=== PATIENT | male | born 1975 | race Caucasian/White ===

== ENCOUNTER 2018-09-23 13:20 | Outpatient (REF) | payer MEDICAID, SELFPAY ==
[2018-09-23 14:42] LABS: ALT 38 U/L (12-78); AST 22 U/L (15-37); Albumin 4.1 g/dL (3.4-5.0); Alkaline Phosphatase 153 U/L (46-116); Anion Gap 14.4 mmol/L (3-11); BUN 11 mg/dL (7-18); Bilirubin, Total 0.4 mg/dL (0.2-1.0); CO2 22.6 mmol/L (21.0-32.0); CREATININE 0.79 mg/dL (0.70-1.30); Calcium 9.6 mg/dL (8.5-10.1); Chloride 101 mmol/L (98-107); Cholesterol 203 mg/dL (50-200); Glucose 162 mg/dL (70-100); HDL Cholesterol 35 mg/dL (40-60); LDL CHOLESTEROL 131 mg/dL (<100); Potassium 4.2 mmol/L (3.5-5.1); Sodium 138 mmol/L (136-145); Total Protein 7.8 g/dL (6.4-8.2); Triglyceride 241 mg/dL (30-150)
[2018-09-23 15:13] LABS: COMMENT (LAB VIEW ONLY) 69.93 mg/dL; Microalb ug/mg Crea 42.8 ug/mg Cr
== END 2018-09-23 13:40 ==
LOC: NCHCN 13:20
PROVIDERS: PCP Family Medicine; Visit Provider Family Medicine
DX: I10 Essential (primary) hypertension (principal); R74.8 Abnormal levels of other serum enzymes; I25.10 Atherosclerotic heart disease of native coronary artery without angina pectoris; E11.8 Type 2 diabetes mellitus with unspecified complications
CPT/HCPCS: 80053; 80061; 82306; 83721; 82043; 82570

== ENCOUNTER 2018-12-28 23:32 | Emergency (ER) | payer MEDICAID, SELFPAY ==
[2018-12-28 23:43] VITALS: BP 152/94; PULSE 103; RESP 18; TEMP 36.4; O2SAT 96
--- NOTE | 2018-12-28 23:58 | ED.GENADUL_ITS ---
Discharge Plan Disposition Patient Disposition: HOME Condition: Stable Discharge Details Chief Complaint: Orthopedic Clinical Impression: Epicondylitis, lateral, right Primary Care Provider: Guanako Perez ED Provider: Arthur Marcelo Home Meds and New Rx's Prescriptions: Continued metformin 500 MG tablet 1,000 mg PO BID Qty: 90 RF: 0 venlafaxine 150 MG capsule,extended release 24hr 225 mg PO DAILY RF: 0 omeprazole 40 MG capsule,delayed release(DR/EC) 40 mg PO DAILY RF: 0 protriptyline 10 MG tablet 10 mg PO TID RF: 0 methylphenidate HCl [Ritalin] 20 MG tablet 20 mg PO TID RF: 0 lisdexamfetamine [Vyvanse] 50 MG capsule 50 mg PO DAILY RF: 0 lisinopril 20 MG tablet 1 tab PO QAM RF: 0 aspirin 325 MG tablet 325 mg PO DAILY RF: 0 amlodipine 5 MG tablet 5 mg PO DAILY RF: 0 modafinil 200 MG tablet 200 mg PO BID RF: 0 empagliflozin [Jardiance] 25 MG tablet 25 mg PO DAILY RF: 0 atorvastatin 80 MG tablet 80 mg PO DAILY RF: 0 lisdexamfetamine [Vyvanse] 50 MG capsule 50 mg PO DAILY RF: 0 exenatide microspheres [Bydureon] 2 MG suspension,extended rel recon 2 mg Sub-Q DIRECTED RF: 0 insulin glargine [Lantus Solostar U-100 Insulin] 100 UNIT/ML insulin pen 45 units Sub-Q HS RF: 0 Discharge Instructions Instructions: Tennis Elbow (ED) Additional Instructions: Please use given brace as needed for discomfort you may also take 600 mg of ibuprofen as needed for pain. Please reduce repetitive motion activities of right upper extremity and if not improving over the next couple weeks follow-up with your primary care provider for reassessment. Feel free to return the emergency department for any new or significant worsening of symptoms or further concerns he may have Referrals: Guanako Perez [Primary Care Provider] - (As needed for reassessment) Discharge Data Discharge Date/Time-TO BE ENTERED AT DEPARTURE: 12/29/18 00:05 Medical Decision Making Patient presenting the emergency department for chief complaint of right elbow pain. Patient denies any known injury or trauma. Patient states with internal rotation and flexion of the forearm he gets lateral elbow pain. Physical exam is unremarkable with full range of motion, no bony prominence tenderness, at this time minimally reproducible symptoms. Neuro, vascular, and motor examination distal the imminent injury are unremarkable. Concern for lateral epicondylitis. Patient given counterforce brace to use as needed for discomfort and instructed to use 600 mg of Motrin as needed for pain. HPI General Mode of arrival: ambulatory . Date/Time Provider Initiated Documentation: 12/28/18 23:48 . Limitations to Documentation: no limitations . Information obtained by: patient and RN notes reviewed . History of Present Illness 43 year old M presents to the emergency department with the chief complaint of Right elbow pain, Quality is described as other (Denies pain), and is localized to the right and upper extremity. and it has been intermittent. Movement worsens symptoms . Patient notes no other symptoms.. Patient did receive the following treatments prior to arrival, none Related Data Home Medications Medication Instructions Recorded Confirmed metformin 1,000 mg PO BID #90 08/20/13 08/12/17 omeprazole 40 mg PO DAILY 10/05/13 08/12/17 protriptyline 10 mg PO TID 10/05/13 08/12/17 venlafaxine 225 mg PO DAILY 10/05/13 08/12/17 lisdexamfetamine [Vyvanse] 50 mg PO DAILY 03/09/14 08/12/17 methylphenidate HCl [Ritalin] 20 mg PO TID 03/09/14 08/12/17 lisinopril 1 tab PO QAM 12/29/14 08/12/17 insulin glargine [Lantus Solostar 45 units SUB-Q HS 09/18/16 08/12/17 U-100 Insulin] amlodipine 5 mg PO DAILY 08/12/17 08/12/17 aspirin 325 mg PO DAILY 08/12/17 08/12/17 atorvastatin 80 mg PO DAILY 08/12/17 08/12/17 empagliflozin [Jardiance] 25 mg PO DAILY 08/12/17 08/12/17 exenatide microspheres [Bydureon] 2 mg SUB-Q DIRECTED 08/12/17 08/12/17 lisdexamfetamine [Vyvanse] 50 mg PO DAILY 08/12/17 08/12/17 modafinil 200 mg PO BID 08/12/17 08/12/17 Previous Rx's Medication Instructions Recorded metformin 1,000 mg PO BID #90 08/20/13 Allergies Allergy/AdvReac Type Severity Reaction Status Date / Time No Known Allergies Allergy Unverified 08/12/17 21:46 General Stated Complaint: Orthopedic STEVO: 4 Review of Systems Constitutional Denies chills and Denies fever(s) Cardiovascular Denies syncope Musculoskeletal Reports as per HPI, Reports numbness and Reports tingling Integumentary/Breasts Denies rash, Denies sores and Denies wounds Neurologic Denies syncope, Reports numbness and Reports tingling PFSH Social History Smoking and Tabacco status: Current every day Exam Const General: cooperative and no acute distress Orientation: alert, awake and oriented x3 Resp Effort & Inspection: normal respiratory effort and able to speak in complete sentences Cardio Rate: regular rate Rhythm: regular rhythm Extrem General: normal exam except as noted Left upper extremity: full ROM, shoulder/upper arm Details: inspection abnormal, elbow/forearm Details: tenderness Location: of the lateral epicondyle and abnormal ROM Details: pain with active ROM Details: with supination; no swelling, wrist Details: normal to inspection and hand Details: normal to inspection Course Vital Signs Temperature 36.4 C L 12/28/18 23:43 Pulse 103 H 12/28/18 23:43 Respiratory Rate 18 12/28/18 23:43 Blood Pressure 152/94 H 12/28/18 23:43 Pulse Oximetry 96 12/28/18 23:43 Temperature 36.4 C L 12/28/18 23:43 Temperature Source Temporal Artery Scan 12/28/18 23:43 Pulse 103 H 12/28/18 23:43 Respiratory Rate 18 12/28/18 23:43 Respiratory Effort Non-Labored 12/28/18 23:45 Blood Pressure 152/94 H 12/28/18 23:43 Blood Pressure Position Sitting 12/28/18 23:43 Pulse Oximetry 96 12/28/18 23:43 Oxygen Delivery Method Room Air 12/28/18 23:43 Oxygen Flow Rate 0 12/28/18 23:43 Pain Level 0 12/28/18 23:43
== END 2018-12-29 00:05 | disposition home or self-care (01) ==
PROVIDERS: Emergency Provider Nurse Practitioner Family; PCP Family Medicine
DX: M77.11 Lateral epicondylitis, right elbow (principal)
CPT/HCPCS: 29105; 99283; 99282

== ENCOUNTER 2019-11-13 12:57 | Outpatient (REF) | payer MEDICARE, SELFPAY ==
[2019-11-13 14:08] LABS: ALT 26 U/L (16-63); AST 12 U/L (15-37); Alkaline Phosphatase 140 U/L (46-116); Anion Gap 12.4 mmol/L (3-11); BUN 12 mg/dL (7-18); Bilirubin, Total 0.3 mg/dL (0.2-1.0); CO2 25.6 mmol/L (21.0-32.0); CREATININE 0.81 mg/dL (0.70-1.30); Calcium 9.5 mg/dL (8.5-10.1); Chloride 100 mmol/L (98-107); Glucose 186 mg/dL (74-106); Potassium 4.6 mmol/L (3.5-5.1); Sodium 138 mmol/L (136-145); Total Protein 7.8 g/dL (6.4-8.2)
== END 2019-11-13 13:17 ==
LOC: NCHCN 12:57
PROVIDERS: PCP Family Medicine; Visit Provider Family Medicine
DX: E11.8 Type 2 diabetes mellitus with unspecified complications (principal); I10 Essential (primary) hypertension; R74.8 Abnormal levels of other serum enzymes
CPT/HCPCS: 80053

== ENCOUNTER 2019-11-24 16:09 | Outpatient (REF) | payer MEDICARE, SELFPAY ==
[2019-11-24 17:05] LABS: *AMPHETAMINES SCREEN URINE Negative (Negative); *BARBITURATES SCREEN URINE Negative (Negative); *BENZODIAZEPINES SCREEN URINE Negative (Negative); Cannabinoids THC POSITIVE (Negative); Cocaine Screen,Urine Negative (Negative); METHADONE URINE SCREEN Negative (Negative); OPIATES URINE SCREEN Negative (Negative)
[2019-11-24 17:06] LABS: Tricyclic Antidepressants POSITIVE (Negative)
== END 2019-11-24 16:29 ==
LOC: LBN 16:09
PROVIDERS: PCP Family Medicine; Visit Provider Internal Medicine
DX: G47.411 Narcolepsy with cataplexy (principal); Z79.899 Other long term (current) drug therapy; R78.5 Finding of other psychotropic drug in blood
CPT/HCPCS: 80307

== ENCOUNTER 2020-07-16 15:58 | Outpatient (REF) | payer MEDICARE, SELFPAY ==
[2020-07-16 14:07] LABS: *AMPHETAMINES SCREEN URINE Negative (Negative); *BARBITURATES SCREEN URINE Negative (Negative); *BENZODIAZEPINES SCREEN URINE Negative (Negative); Cannabinoids THC Negative (Negative); Cocaine Screen,Urine Negative (Negative); METHADONE URINE SCREEN Negative (Negative); OPIATES URINE SCREEN Negative (Negative)
[2020-07-16 14:10] LABS: Tricyclic Antidepressants Negative (Negative)
[2020-07-20 13:41] LABS: Methylphenidate 439 ng/mL; Ritalinic Acid 7229 ng/mL
== END 2020-07-16 16:18 ==
LOC: LBN 15:58
PROVIDERS: PCP Family Medicine; Visit Provider Internal Medicine
DX: G47.411 Narcolepsy with cataplexy (principal); Z79.899 Other long term (current) drug therapy
CPT/HCPCS: 80307; 80360

== ENCOUNTER 2020-09-19 16:12 | Outpatient (REF) | payer MEDICARE, MEDICAID, SELFPAY ==
[2020-09-19 18:45] LABS: ALT 28 U/L (16-63); AST 16 U/L (15-37); Albumin 4.1 g/dL (3.4-5.0); Alkaline Phosphatase 153 U/L (46-116); Anion Gap 11.5 mmol/L (3-11); BUN 13 mg/dL (7-18); Bilirubin, Total 0.2 mg/dL (0.2-1.0); CO2 25.5 mmol/L (21.0-32.0); CREATININE 1.01 mg/dL (0.70-1.30); Calcium 9.7 mg/dL (8.5-10.1); Chloride 102 mmol/L (98-107); Glucose 173 mg/dL (74-106); Sodium 139 mmol/L (136-145); Total Protein 7.7 g/dL (6.4-8.2)
[2020-09-19 19:31] LABS: Vitamin D 25 Total 9.9 ng/ml (30-100)
[2020-09-21 13:47] LABS: Syphilis Total Ab w/Reflex Nonreactive (Nonreactive)
[2020-09-23 16:52] LABS: HIV-1/2 Ag & Ab Screen Negative (Negative)
== END 2020-09-19 16:32 ==
LOC: NCHCN 16:12
PROVIDERS: PCP Family Medicine; Visit Provider Family Medicine
DX: R74.8 Abnormal levels of other serum enzymes (principal); E11.8 Type 2 diabetes mellitus with unspecified complications; Z11.4 Encounter for screening for human immunodeficiency virus [HIV]; Z13.9 Encounter for screening, unspecified
CPT/HCPCS: 80053; 82306; 87389; 86780

== ENCOUNTER → 2020-12-24 09:03 | Outpatient (BNVA) | payer OTHER, MEDICAID, SELFPAY | PROVIDERS: PCP Family Medicine; Referring Provider Family Medicine; Visit Provider Nurse Practitioner Gerontology | DX: N52.9 Male erectile dysfunction, unspecified (principal) | CPT/HCPCS: 99215 ==

== ENCOUNTER 2021-01-16 19:12 | Outpatient (REF) | payer OTHER, MEDICAID, SELFPAY ==
[2021-01-16 20:17] LABS: *AMPHETAMINES SCREEN URINE Negative (Negative); *BARBITURATES SCREEN URINE Negative (Negative); *BENZODIAZEPINES SCREEN URINE Negative (Negative); Cannabinoids THC POSITIVE (Negative); Cocaine Screen,Urine Negative (Negative); METHADONE URINE SCREEN Negative (Negative); OPIATES URINE SCREEN Negative (Negative)
[2021-01-16 20:31] LABS: Tricyclic Antidepressants POSITIVE (Negative)
== END 2021-01-16 19:13 | disposition home or self-care (01) ==
LOC: LBN 19:12
PROVIDERS: PCP Family Medicine; Visit Provider Internal Medicine
DX: G47.411 Narcolepsy with cataplexy (principal); Z79.899 Other long term (current) drug therapy
CPT/HCPCS: 80307

== ENCOUNTER 2021-05-16 00:23 | Emergency (ER) | payer OTHER, MEDICAID, SELFPAY ==
--- NOTE | 2021-05-16 00:24 | ED.GENADUL_ITS ---
Discharge Plan Disposition Patient Disposition: HOME Condition: Good Discharge Details Clinical Impression: Acute maxillary sinusitis Primary Care Provider: Guanako Perez ED Provider: Isacc Enriquez [place] Meds and New Rx's Prescriptions: New amoxicillin-pot clavulanate [Augmentin] 875-125 mg tablet 1 tab PO BID Qty: 14 RF: 0 Continued ropinirole 0.25 mg tablet 0.5 mg PO QHS RF: 0 cholecalciferol (vitamin D3) 1,250 mcg (50,000 unit) capsule 1,250 mcg PO QWEEK RF: 0 Sunosi 150 mg tablet 150 mg PO DAILY RF: 0 Trulicity 1.5 mg/0.5 mL pen injector 1.5 mg subcut QWEEK RF: 0 omeprazole 40 mg capsule,delayed release(DR/EC) 40 mg PO DAILY RF: 0 Lantus Solostar U-100 Insulin 100 unit/mL (3 mL) insulin pen 55 unit Sub-Q HS RF: 0 lisinopril 40 mg tablet 40 mg PO DAILY RF: 0 protriptyline 10 mg tablet 10 mg PO TID RF: 0 metformin 500 MG tablet 1,000 mg PO BID Qty: 90 RF: 0 venlafaxine 150 MG capsule,extended release 24hr 225 mg PO DAILY RF: 0 omeprazole 40 MG capsule,delayed release(DR/EC) 40 mg PO DAILY RF: 0 methylphenidate HCl [Ritalin] 20 MG tablet 20 mg PO TID RF: 0 amlodipine 5 MG tablet 5 mg PO DAILY RF: 0 modafinil 200 MG tablet 200 mg PO BID RF: 0 Jardiance 25 MG tablet 25 mg PO DAILY RF: 0 atorvastatin 80 MG tablet 80 mg PO DAILY RF: 0 Discharge Instructions Instructions: Amoxicillin/Clavulanate Potassium (By mouth), Sinusitis (ED) Additional Instructions: We will treat as bacterial sinusitis given the amount of tenderness over the left maxillary sinus. Take all of your antibiotic. Use acetaminophen or ibuprofen for pain. Follow-up with primary care next week for reevaluation. Return to ED for worsening pain/swelling, difficulty breathing, worsening headache, other concerns. Referrals: Guanako Perez [Primary Care Provider] - Medical Decision Making Given the tenderness over the left maxillary sinus, left facial swelling, complaint of thick nasal discharge presume bacterial sinusitis. Patient appears nontoxic and well. He denies allergies. Will start on Augmentin and have him follow-up with primary care next week for reevaluation. Return to ED for worsening pain/swelling, worsening headache, difficulty breathing, other concerns. HPI General Mode of arrival: ambulatory . Date/Time Provider Initiated Documentation: 05/16/21 00:23 . Limitations to Documentation: no limitations . Information obtained by: patient and RN notes reviewed . HPI Narrative: Patient presents to the ED with left facial swelling that he has noticed today. It has steadily gotten worse. He has had a couple of days of sinus congestion and discomfort. He has thick green discharge when he blows his nose. He denies fever, headache. Does have a slight cough but has no chest pain or shortness of breath. He is edentulous. He does not really complain of facial pain but is noticed swelling getting worse and came in tonight for evaluation. Related Data Home Medications Medication Instructions Recorded Confirmed metformin 1,000 mg PO BID #90 08/20/13 05/16/21 omeprazole 40 mg PO DAILY 10/05/13 05/16/21 venlafaxine 225 mg PO DAILY 10/05/13 05/16/21 methylphenidate HCl [Ritalin] 20 mg PO TID 03/09/14 05/16/21 Jardiance 25 mg PO DAILY 08/12/17 05/16/21 amlodipine 5 mg PO DAILY 08/12/17 05/16/21 atorvastatin 80 mg PO DAILY 08/12/17 05/16/21 modafinil 200 mg PO BID 08/12/17 05/16/21 cholecalciferol (vitamin D3) 1,250 1,250 mcg PO QWEEK 11/20/20 12/24/20 mcg (50,000 unit) capsule dulaglutide 1.5 mg/0.5 mL 1.5 mg SUBCUT QWEEK 11/20/20 05/16/21 subcutaneous pen injector insulin glargine 100 unit/mL (3 55 unit SUB-Q HS ml 11/20/20 05/16/21 mL) subcutaneous pen lisinopril 40 mg tablet 40 mg PO DAILY 11/20/20 05/16/21 omeprazole 40 mg capsule,delayed 40 mg PO DAILY 11/20/20 05/16/21 release protriptyline 10 mg tablet 10 mg PO TID 11/20/20 05/16/21 ropinirole 0.25 mg tablet 0.5 mg PO QHS tab 11/20/20 05/16/21 solriamfetol 150 mg tablet 150 mg PO DAILY 11/20/20 05/16/21 amoxicillin-pot clavulanate 1 tab PO BID #14 tab 05/16/21 [Augmentin] Previous Rx's Medication Instructions Recorded metformin 1,000 mg PO BID #90 08/20/13 amoxicillin-pot clavulanate 1 tab PO BID #14 tab 05/16/21 [Augmentin] Allergies Allergy/AdvReac Type Severity Reaction Status Date / Time No Known Allergies Allergy Unverified 08/12/17 21:46 General STEVO: 4 Review of Systems Narrative: As documented in HPI otherwise negative as below. Const: no fever, chills, weakness Resp: no SOB, pleuritic pain CV: no CP, diaphoresis, edema, syncope GI: no abdominal pain, nausea, vomiting, diarrhea Neuro: no headache, numbness, focal weakness, confusion PFSH Medical History Benign hypertension Cataplexy and narcolepsy Followed by bar machine operator, Dr. Hoang. Coronary arteriosclerosis Diabetes mellitus type 2 Diabetic peripheral neuropathy Eczema Hyperlipidemia Metabolic syndrome Microalbuminuria Restless legs Vitamin D deficiency Surgical History History of heart artery stent S/P CABG (coronary artery bypass graft) S/P exploratory laparotomy Social History Smoking/Tobacco Use Status: Current every day Smoking risk assessment performed?: Yes Alcohol Intake: never Drug use: Never Do you feel safe at home: Yes Do you feel safe in your relationship?: Yes Exam Narrative Exam Narrative: Const: WDWN male in NAD. HEENT: NC/AT. Left facial swelling noticed. No erythema. No parotid swelling or tenderness. Significant left maxillary tenderness. TMs clear. OP clear and no swelling. No parotid duct pus expressed. Eyes: Normal conjunctiva and sclera. Neck: Supple. Trachea midline. Lungs: Normal respiratory effort. Lungs are clear. Cor: RRR without murmur/gallop Neuro: A+O x 3. Normal speech, mentation, gait. Cranial nerves II - XII grossly intact. No gross motor or sensory deficit. Skin: Warm and dry without rash.
[2021-05-16 00:25] VITALS: BP 177/105; PULSE 99; RESP 18; TEMP 36.3; O2SAT 99
[2021-05-16] MEDS: Amoxicillin 875/Clav. 125 TAB PO (00:46)
== END 2021-05-16 00:45 | disposition home or self-care (01) ==
LOC: ER 00:48
PROVIDERS: Emergency Provider Emergency Medicine; PCP Family Medicine
DX: R22.0 Localized swelling, mass and lump, head (principal); J01.00 Acute maxillary sinusitis, unspecified; F17.210 Nicotine dependence, cigarettes, uncomplicated
CPT/HCPCS: 99283

== ENCOUNTER 2021-09-10 12:13 | Emergency (ER) | payer MEDICARE, MEDICAID, SELFPAY ==
[2021-09-10 12:26] VITALS: BP 124/84; PULSE 108; RESP 16; TEMP 36.8; O2SAT 97
--- NOTE | 2021-09-10 12:42 | ED.GENADUL_ITS ---
Discharge Plan Disposition Patient Disposition: HOME Condition: Stable Discharge Details Clinical Impression: Cellulitis of index finger Primary Care Provider: Guanako Perez ED Provider: Padma Gallagher Home Meds and New Rx's Prescriptions: New cephalexin 500 mg capsule 500 mg PO QID 7 Days Qty: 28 RF: 0 Continued ropinirole 0.25 mg tablet 0.5 mg PO QHS RF: 0 cholecalciferol (vitamin D3) 1,250 mcg (50,000 unit) capsule 1,250 mcg PO QWEEK RF: 0 Sunosi 150 mg tablet 150 mg PO DAILY RF: 0 Trulicity 1.5 mg/0.5 mL pen injector 1.5 mg subcut QWEEK RF: 0 omeprazole 40 mg capsule,delayed release(DR/EC) 40 mg PO DAILY RF: 0 Lantus Solostar U-100 Insulin 100 unit/mL (3 mL) insulin pen 55 unit Sub-Q HS RF: 0 lisinopril 40 mg tablet 40 mg PO DAILY RF: 0 protriptyline 10 mg tablet 10 mg PO TID RF: 0 metformin 500 MG tablet 1,000 mg PO BID Qty: 90 RF: 0 venlafaxine 150 MG capsule,extended release 24hr 225 mg PO DAILY RF: 0 omeprazole 40 MG capsule,delayed release(DR/EC) 40 mg PO DAILY RF: 0 methylphenidate HCl [Ritalin] 20 MG tablet 20 mg PO TID RF: 0 amlodipine 5 MG tablet 5 mg PO DAILY RF: 0 modafinil 200 MG tablet 200 mg PO BID RF: 0 Jardiance 25 MG tablet 25 mg PO DAILY RF: 0 atorvastatin 80 MG tablet 80 mg PO DAILY RF: 0 Discharge Instructions Instructions: Paronychia (ED), Cellulitis (ED) Additional Instructions: It is suspected that you are developing a skin infection called cellulitis on your finger. A prescription for antibiotics has been sent electronically to your pharmacy. Take this as directed until finished. Be sure to watch your sugar closely as infections may affect your blood sugar. Follow-up with your primary care doctor within the next week. Return to the emergency department with any worsening or new concerning symptoms such as fever, worsening pain, redness or swelling. Discharge Data Discharge Physician: Padma Gallagher Medical Decision Making 46-year-old male with a history of hypertension, hyperlipidemia, coronary artery disease, anxiety, depression and diabetes presents for right index finger swelling, pain and redness for the past few days. No injury but does admit to pus drainage when squeezing the area. Patient appears comfortable and nontoxic. There is an area of cellulitis on the dorsal distal aspect right above the cuticle of the right second finger. There is no obvious abscess noted. A digital block was performed and an 11 blade was used to incise the area just below the cuticle but no pus drainage expressed. His finger was soaked in normal saline and dressed with antibiotic ointment and tube gauze dressing. He was given a dose of Keflex here and a prescription sent electronically to his pharmacy. Advised to follow up with the primary care doctor for re-evaluation. Usual and customary return precautions given prior to discharge. Medical Records Medical records reviewed: Yes I reviewed the patient's medical records. HPI General Mode of arrival: ambulatory . Date/Time Provider Initiated Documentation: 09/10/21 12:31 . Limitations to Documentation: no limitations . Information obtained by: patient . HPI Narrative: Patient is a 46-year-old male with a history of hypertension, hyperlipidemia, anxiety, depression, coronary artery disease, diabetes who presents for right index finger pain, redness and swelling for the past few days. Patient denies any known injury. He states he does occasionally bite and pick at this area. He states he has noted some pus drainage breast when pushing on the area. He denies any known fever. Related Data Home Medications Medication Instructions Recorded Confirmed metformin 1,000 mg PO BID #90 08/20/13 09/10/21 omeprazole 40 mg PO DAILY 10/05/13 09/10/21 venlafaxine 225 mg PO DAILY 10/05/13 09/10/21 methylphenidate HCl [Ritalin] 20 mg PO TID 03/09/14 09/10/21 Jardiance 25 mg PO DAILY 08/12/17 09/10/21 amlodipine 5 mg PO DAILY 08/12/17 09/10/21 atorvastatin 80 mg PO DAILY 08/12/17 09/10/21 modafinil 200 mg PO BID 08/12/17 09/10/21 cholecalciferol (vitamin D3) 1,250 1,250 mcg PO QWEEK 11/20/20 09/10/21 mcg (50,000 unit) capsule dulaglutide 1.5 mg/0.5 mL 1.5 mg SUBCUT QWEEK 11/20/20 09/10/21 subcutaneous pen injector insulin glargine 100 unit/mL (3 55 unit SUB-Q HS ml 11/20/20 09/10/21 mL) subcutaneous pen lisinopril 40 mg tablet 40 mg PO DAILY 11/20/20 09/10/21 omeprazole 40 mg capsule,delayed 40 mg PO DAILY 11/20/20 09/10/21 release protriptyline 10 mg tablet 10 mg PO TID 11/20/20 09/10/21 ropinirole 0.25 mg tablet 0.5 mg PO QHS tab 11/20/20 09/10/21 solriamfetol 150 mg tablet 150 mg PO DAILY 11/20/20 09/10/21 cephalexin 500 mg PO QID 7 Days #28 cap 09/10/21 Previous Rx's Medication Instructions Recorded metformin 1,000 mg PO BID #90 08/20/13 cephalexin 500 mg PO QID 7 Days #28 cap 09/10/21 Allergies Allergy/AdvReac Type Severity Reaction Status Date / Time No Known Allergies Allergy Unverified 09/10/21 12:30 General Stated Complaint: Orthopedic STEVO: 4 Review of Systems All systems reviewed & are unremarkable except as noted in HPI and below PFSH Medical History Benign hypertension Cataplexy and narcolepsy Followed by policy services representative, Dr. Hoang. Coronary arteriosclerosis Diabetes mellitus type 2 Diabetic peripheral neuropathy Eczema Hyperlipidemia Metabolic syndrome Microalbuminuria Restless legs Vitamin D deficiency Surgical History History of heart artery stent S/P CABG (coronary artery bypass graft) S/P exploratory laparotomy Social History Smoking/Tobacco Use Status: Current every day Tobacco Type: cigarettes Smoking risk assessment performed?: Yes Alcohol Intake: never Drug use: Never Substance use type: does not use Do you feel safe at home: Yes Do you feel safe in your relationship?: Yes Exam Const General: cooperative, healthy appearing and no acute distress HENMT Head: normal to inspection Mouth: oral mucosae normal Eyes General: appearance normal, both eyes and all related structures Neck Neck: normal visual inspection Resp Effort & Inspection: normal respiratory effort and able to speak in complete sentences Cardio Rate: regular rate Skin General skin exam: no rashes or lesions noted Neuro General: patient alert, patient awake and patient oriented x3 Motor: muscle tone normal throughout Extrem Hand/finger images: 1. 1.5 x 1 cm area of tender erythema noted just proximal to the cuticle on the dorsal aspect of the right distal index finger. There is no obvious area of fluctuance or yellow discharge. No crepitus. No significant pain with range of motion of the right index finger other than distal aspect. There is no deformity. Psych Appearance: grossly normal Affect: normal affect Course Vital Signs Vital signs: Vital Signs Temperature 98.2 F 09/10/21 12:26 Pulse 108 H 09/10/21 12:26 Respiratory Rate 16 09/10/21 12:26 Blood Pressure 124/84 09/10/21 12:26 Pulse Oximetry 97 09/10/21 12:26 Temperature 98.2 F 09/10/21 12:26 Temperature Source Skin 09/10/21 12:26 Pulse 108 H 09/10/21 12:26 Respiratory Rate 16 09/10/21 12:26 Respiratory Effort Non-Labored 09/10/21 12:26 Blood Pressure 124/84 09/10/21 12:26 Blood Pressure Position Sitting 09/10/21 12:26 Pulse Oximetry 97 09/10/21 12:26 Oxygen Delivery Method Room Air 09/10/21 12:26 Oxygen Flow Rate 0 09/10/21 12:26 Pain Level 5 09/10/21 12:26 Procedures Abscess I/D Site: Hand (second finger) Side (if applicable): Right Local Anesthetic: Lidocaine 1% Amount of anesthesia used (mL): 4 Technique: Incised with #11 Blade Amount of fluid expressed (mL): 0.2 (minimal serosanginous fluid expressed) Irrigation: Yes Packing used?: None
[2021-09-10] MEDS: Cephalexin 500 MG CAP PO (13:10)
== END 2021-09-10 13:30 | disposition home or self-care (01) ==
PROVIDERS: Emergency Provider Physician Assistant; PCP Family Medicine
DX: L03.011 Cellulitis of right finger (principal)
CPT/HCPCS: 99283

== ENCOUNTER 2022-01-12 18:56 | Outpatient (REF) | payer MEDICARE, MEDICAID, SELFPAY ==
[2022-01-12 20:21] LABS: ALT 28 U/L (16-63); AST 15 U/L (15-37); Albumin 4.2 g/dL (3.4-5.0); Alkaline Phosphatase 113 U/L (46-116); Anion Gap 11.1 mmol/L (3-11); BUN 16 mg/dL (7-18); Bilirubin, Total 0.3 mg/dL (0.2-1.0); CO2 24.9 mmol/L (21.0-32.0); CREATININE 0.9 mg/dL (0.70-1.30); Calcium 9.6 mg/dL (8.5-10.1); Chloride 98 mmol/L (98-107); Cholesterol 309 mg/dL (<200); Glucose 151 mg/dL (74-106); HDL Cholesterol 37 mg/dL (40-60); Potassium 3.8 mmol/L (3.5-5.1); Sodium 134 mmol/L (136-145); Triglyceride 457 mg/dL (<150)
[2022-01-12 20:33] LABS: LDL CHOLESTEROL 188 mg/dL (<100)
[2022-01-12 20:37] LABS: Vitamin D 25 Total 11.6 ng/mL (30-100)
[2022-01-12 20:39] LABS: GGT 74 U/L (15-85)
== END 2022-01-12 18:57 | disposition home or self-care (01) ==
LOC: NCHCN 18:56
PROVIDERS: PCP Family Medicine; Visit Provider Family Medicine
DX: R74.8 Abnormal levels of other serum enzymes (principal); E55.9 Vitamin D deficiency, unspecified; I25.10 Atherosclerotic heart disease of native coronary artery without angina pectoris
CPT/HCPCS: 80053; 80061; 82306; 83721; 82977

== ENCOUNTER 2022-10-24 23:48 | Emergency (ER) | payer MEDICARE, MEDICAID, SELFPAY ==
[2022-10-25 01:00] VITALS: BP 126/75; PULSE 98; RESP 18; TEMP 36.8; O2SAT 98
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
[2022-10-25 01:18] LABS: Bilirubin Negative (Negative); Blood Negative (Negative); Clarity Clear (Clear); Glucose >=1000 mg/dL (Negative); Ketones Negative (Negative); Leukocyte Esterase Negative (Negative); Nitrite Negative (Negative); Specific Gravity 1.015 (1.005-1.025); Urobilinogen 0.2 EU/dL (Up TO 0.2); pH 5.5 (5-8)
[2022-10-25] MEDS: Methocarbamol 500 MG TAB 1000 MG PO (01:33)
== END 2022-10-25 01:34 | disposition home or self-care (01) ==
PROVIDERS: Emergency Provider Emergency Medicine; PCP Family Medicine
DX: S29.012A Strain of muscle and tendon of back wall of thorax, initial encounter (principal); X58.XXXA Exposure to other specified factors, initial encounter
CPT/HCPCS: 99283; 81003

== ENCOUNTER 2022-12-02 17:45 | Outpatient (REF) | payer MEDICARE, MEDICAID, SELFPAY ==
[2022-12-02 16:09] LABS: ALT 21 U/L (16-63); AST 17 U/L (15-37); Albumin 4.2 g/dL (3.4-5.0); Alkaline Phosphatase 147 U/L (46-116); Anion Gap 15.1 mmol/L (3-11); BUN 11 mg/dL (7-18); Bilirubin, Total 0.3 mg/dL (0.2-1.0); CO2 21.9 mmol/L (21.0-32.0); Calcium 9.5 mg/dL (8.5-10.1); Chloride 99 mmol/L (98-107); Cholesterol 250 mg/dL (<200); Estimated GFR 92.84 (mL/min/1.73m2); Glucose 246 mg/dL (74-106); HDL Cholesterol 38 mg/dL (40-60); Sodium 136 mmol/L (136-145); Total Protein 7.8 g/dL (6.4-8.2); Triglyceride 581 mg/dL (<150)
[2022-12-02 16:28] LABS: Vitamin D 25 Total 16.2 ng/mL (30-100)
[2022-12-04 09:00] LABS: Hepatitis C Ab w Rflx HCV PCR Negative (Negative)
[2022-12-04 09:27] LABS: HIV-1/2 Ag & Ab Screen Negative (Negative)
== END 2022-12-02 17:46 | disposition home or self-care (01) ==
LOC: NCHCN 17:45
PROVIDERS: PCP Family Medicine; Visit Provider Family Medicine
DX: I10 Essential (primary) hypertension (principal); E88.81 Metabolic syndrome and other insulin resistance; E78.5 Hyperlipidemia, unspecified; E55.9 Vitamin D deficiency, unspecified; Z11.4 Encounter for screening for human immunodeficiency virus [HIV]; Z11.59 Encounter for screening for other viral diseases
CPT/HCPCS: 80053; 80061; 82306; 83721; 86803; 87389

== ENCOUNTER 2024-05-28 09:09 | Emergency (ER) | payer OTHER, MEDICAID, SELFPAY ==
[2024-05-28 09:28] VITALS: BP 110/82; PULSE 88; RESP 18; TEMP 35.9; O2SAT 99
--- NOTE | 2024-05-28 10:00 | DI.CT_ITS ---
Exam(s) CT ABD AORTA CTA W RUNOFF EXAM: CT ABD AORTA CTA W RUNOFF CLINICAL HISTORY: calf pain, dim sensation, no dp pulse. TECHNIQUE: Imaging Protocol: Axial computed tomography images with coronal and sagittal reformatted images were created and reviewed CONTRAST MATERIAL: Intravenous: Omnipaque 350 Contrast volume:150 mL COMPARISON: CT CHEST FOR PULMONARY EMBOLUS from 09/18/2016 FINDINGS: Sternotomy wires are noted. Heart size is normal. There is no pericardial effusion. No pleural eff usions nor infiltrates in the visualized lung bases AORTA: There is no evidence of abdominal aortic aneurysm. Also no aneurysmal dilatation of the iliac arteri es. Some circumferential calcification in the bilateral common iliac arteries is evident but there d oes not appear to be a high-grade stenosis at the aortic bifurcation nor in the common iliac arteries nor at their junction with the external iliac arteries. The left external iliac artery exhibits santos e atherosclerotic narrowing-mild distally. The right external iliac artery exhibits moderate focal s tenosis at its mid aspect. There is moderate atherosclerotic narrowing of both common femoral arteri es. There is moderate atherosclerotic disease throughout the length of both SFA arteries. There are no popliteal artery aneurysms. 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 There is reconstitution of the distal popliteal artery and tibioperoneal trunk and there is three-vessel runoff in the left calf below this level. On the right side the popliteal artery exhibits mild atherosclerotic disease without occlusion and no aneurysm. The tibioperoneal trunk is patent as is the trifurcation and there is satisfactory three- vessel runoff in the right calf. ABDOMEN: There is no evidence of abdominal aortic aneurysm nor dissection.Celiac and superior mesenteric arter ies are patent as are the renal arteries. No obvious stenosis in these vessels. The inferior mesent reji artery is also patent. There is no ascites. LIVER: There are no focal hepatic lesions nor dilatation of intrahepatic ducts. GALLBLADDER/BILIARY: No obvious gallbladder pathology. CBD is not dilated. PANCREAS: No evidence of pancreatic mass nor dilatation of the pancreatic duct. SPLEEN: Spleen is not enlarged. There are no intrasplenic lesions. Splenic and portal veins are hoover nt. ADRENALS: There are no significant adrenal masses. KIDNEYS: Both kidneys exhibit normal size. No calculi nor hydronephrosis. No solid renal masses. No cysts. LYMPH NODES: There is no retroperitoneal nor para-aortic adenopathy. No obvious mesenteric masses. ABDOMINAL WALL: No evidence of significant anterior abdominal wall hernia. GI: There are no ischemic appearing bowel loops. There is no evidence of bowel obstruction, free air , nor abscess. PELVIS: LYMPH NODES: There is no intrapelvic nor inguinal adenopathy. GI: No evidence of appendicitis.No evidence of sigmoid diverticulitis. URINARY BLADDER: No calculi nor masses evident REPRODUCTIVE: Prostate not enlarged. OSSEOUS: No significant osseous lesions. IMPRESSION: 1. The main finding here is occlusion of the left popliteal artery at its origin with reconstitution of the distal left popliteal artery. The ipsilateral tibioperoneal trunk is patent as is the trifurc ation and runoff vessels in the left calf. There is no evidence of popliteal artery aneurysm on eith er side. No evidence of popliteal artery occlusion on the opposite-right side. 2. No evidence of aneurysmal dilatation of the abdominal aorta and iliac arteries but there is mild-m oderate atherosclerotic involvement of the iliac arteries as described above as well as multilevel mo derate atherosclerotic involvement of the SFA arteries bilaterally. 3. Heart size is normal. There are sternotomy wires evident. First read by [facility] RADIATION DOSE DELIVERED: Total DLP DATA REPOSITORY: All CT scans at this facility are submitted to the National Radiology Data Registry (NRDR) Dose Index Registry (DIR) with the [employer] (A[employer]). RADIATION OPTIMIZATION: All CT scans at this facility use at least one of these dose optimization te chniques: automated exposure control; mA and/or kV adjustment per patient size (includes targeted exa ms where dose is matched to clinical indication); or iterative reconstruction.
--- NOTE | 2024-05-28 10:00 | RT.EKG_ITS ---
APPROVED REPORT Exam: Resting ECG Reason for Exam: chest pain Patient Location: E HR:97 bpm ECG Measurements Heart Rate 97 AXIS SC 170 P 57 QRSd 108 QRS 88 QT 361 T 0 QTc 458 Conclusion Sinus rhythm...normal P axis, V-rate 60- 99 Inferior infarct, old...Q >35mS, II III aVF sinus rhtyhm, normal axis, normal intervals, non ischemic
[2024-05-28 10:27] LABS: Abs Immature Grans 0.03 10^3/uL (0.0-0.06); Absolute Basophil Count 0.08 10^3/uL (0.0-0.2); Absolute Eosinophil Count 0.14 10^3/uL (0.0-0.7); Absolute Lymphocyte Count 1.71 10^3/uL (1.2-3.4); Absolute Monocyte Count 0.57 10^3/uL (0.1-0.8); Absolute Neutrophil Count 6.62 10^3/uL (1.2-6.7); Basophils % 0.9 %; Eosinophils % 1.5 %; HCT 42.8 % (40.0-50.0); HGB 14.9 g/dL (13.5-17.5); Immature Grans % 0.3 %; Lymphocytes % 18.7 %; MCH 29.7 pg (27.0-33.0); MCHC 34.8 % (32.0-36.0); MCV 85 fL (80-95); MPV 11.1 fL (8.0-11.0); Monocytes % 6.2 %; Neutrophils % 72.4 %; Platelet Count 175 10^3/uL (130-400); RBC 5.01 10^6/uL (4.36-5.78); RDW 11.4 % (11.8-14.1); RDW-SD 35.1 fL; WBC 9.15 10^3/uL (4.4-10.8)
[2024-05-28] MEDS: Omnipaque 350 MG/ML 100 ML BTL 150 ML IJ (10:29)
[2024-05-28 10:43] LABS: ALT 40 U/L (16-63); AST 15 U/L (15-37); Albumin 3.7 g/dL (3.4-5.0); Alkaline Phosphatase 152 U/L (46-116); Anion Gap 14.7 mmol/L (3-11); BUN 10 mg/dL (7-18); Bilirubin, Total 0.22 mg/dL (0.2-1.0); CO2 23.3 mmol/L (21.0-32.0); Calcium 9.5 mg/dL (8.5-10.1); Chloride 94 mmol/L (98-107); Creatine Kinase 151 U/L (39-308); Estimated GFR 91.69 (mL/min/1.73m2); Glucose 493 mg/dL (74-106); Magnesium 1.6 mg/dL (1.8-2.4); Potassium 4.3 mmol/L (3.5-5.1); Sodium 132 mmol/L (136-145); Total Protein 7.7 g/dL (6.4-8.2)
[2024-05-28 11:20] VITALS: RESP 20
[2024-05-28] MEDS: Normal Saline 1,000 ML 1000 ML IV (11:30)
[2024-05-28 11:32] LABS: BE (Venous) 1 mmol/L (-2-3); HCO3 (Venous) 26 mmol/L (23-28); O2 Sat (Venous) 67 %; TCO2 (Venous) 23 mmol/L (24-29); pCO2 (Venous) 45 mmHg (41-51); pH (Venous) 7.37 (7.31-7.41); pO2 (Venous) 33 mmHg
--- OUTSIDE RECORDS SUMMARY | 2024-05-28 11:37 | XMS_ITS | Continuity of Care Document ---
Author Organization [facility] Address Unknown Care Team Providers Care Television Journalist Name Role Phone Unknown PCP, Unknown PCP Primary Care Physician Unavailable Encounter Date(s): 12/31/21 - 12/31/21 [facility] [address] [place] [address] Encounter Diagnosis Narcolepsy(Discharge Diagnosis) - 12/31/21 Discharge Disposition: Home or Self Care Attending Physician: Anna Hoang MD Admitting Physician: Anna Hoang MD Immunizations Given and Recorded Vaccine Date Status Refusal Reason influenza virus vaccine, inactivated 09/23/18 Deon rded Medications Provigil 200 mg oral tablet 200 mg = 1 tab(s), Oral, BID, 1 tablet in the morning and 1 tablet at noon, # 60 tab(s), 5 Refill(s), Pharmacy: [id number], 177.5, cm, 12/31/21 13:06:00 EST, Height/Length Dosing, 112.4, kg, 12/31/21 13:06:00 EST, Weight Dosing Start Date: 12/31/21 Status: Ordered Provigil 200 mg oral tablet 200 mg = 1 tab(s), Oral, BID, 1 tablet in the morning and 1 tablet at noon, # 60 tab(s), 5 Refill(s), Pharmacy: [facility], 177.5, cm, 09/03/21 13:51:00 EDT, Height/Length Dosing, 110.8, kg, 09/03/21 13:51:00 EDT, Weight Dosing Start Date: 09/03/21 Status: Ordered Ritalin 20 mg oral tablet 20 mg = 1 tab(s), Oral, TID, DO NOT fill until 07/12/2021, # 90 tab(s), 0 Refill(s), Pharmacy: [id number] Start Date: 07/10/21 Status: Ordered Ritalin 20 mg oral tablet 20 mg = 1 tab(s), Oral, TID, do not fill until 06/11/2021, # 90 tab(s), 0 Refill(s), Pharmacy: [facility] Start Date: 06/11/21 Status: Ordered Ritalin 20 mg oral tablet 20 mg = 1 tab(s), Oral, TID, do not refill until 12/09/2021 V PMS check done December 09, 2021, # 90 tab(s), 0 Refill(s), Pharmacy: [facility], 177.5, cm, 09/03/21 13:51:00 EDT, Height/Length Dosing, 110.8, kg, 09/03/21 13:51:00 EDT, Weight Dosing Start Date: 12/09/21 Status: Ordered Ritalin 20 mg oral tablet 20 mg = 1 tab(s), Oral, TID, Do not fill until 08/11/2021, # 90 tab(s), 0 Refill(s), Pharmacy: [facility], 177.5, cm, 09/03/21 13:51:00 EDT, Height/Length Dosing, 110.8, kg, 09/03/21 13:51:00 EDT, Weight Dosing Start Date: 09/15/21 Status: Ordered Ritalin 20 mg oral tablet 20 mg = 1 tab(s), Oral, TID, VPMS check done 12/31/2021 Do not fill until 01/06/2022, # 90 tab(s), 0 Refill(s), Pharmacy: [facility], 177.5, cm, 12/31/21 13:06:00 EST, Height/Length Dosing, 112.4,kg, 12/31/21 13:06:00 EST, Weight Dosing Start Date: 12/31/21 Status: Ordered Ritalin 20 mg oral tablet 20 mg = 1 tab(s), Oral, TID, Do not fill until 09/10/2021, # 90 tab(s), 0 Refill(s), Pharmacy: [facility], 177.5, cm, 09/03/21 13:51:00 EDT, Height/Length Dosing, 110.8, kg, 09/03/21 13:51:00 EDT, Weight Dosing Start Date: 09/03/21 Status: Ordered Ritalin 20 mg oral tablet 20 mg = 1 tab(s), Oral, TID, Do not fill until 08/11/2021, # 90 tab(s), 0 Refill(s), Pharmacy: [facility] Start Date: 08/11/21 Status: Ordered Sunosi 150 mg oral tablet 150 mg = 1 tab(s), Oral, qAM, # 1 tab(s), 5 Refill(s), Pharmacy: [facility] Start Date: 07/10/21 Status: Ordered Wakix 17.8 mg oral tablet 35.6 mg = 2 tab(s), Oral, qAM, Start 1/2 tablet a day for 3 days then 1 tablet a day for 3 days then 2 tablets a day, # 60 tab(s), 0 Refill(s), Pharmacy: [facility], 177.5, cm, 09/03/21 13:51:00 EDT, Height/Length Dosing, 110.8, kg, 09/03/21 13:... Start Date: 09/03/21 Status: Ordered Wakix 17.8 mg oral tablet 35.6 mg = 2 tab(s), Oral, qAM, Start with 1 pill/day and increase to 2 pills/day after 14 days., # 60 tab(s), 5 Refill(s), Pharmacy: [facility], 177.5, cm, 12/31/21 13:06:00 EST, Height/Length Dosing, 112.4, kg, 12/31/21 13:06:00 EST, Weight Dosing Start Date: 12/31/21 Status: Ordered Social History Social History Type Response Smoking Status Current every day sm oker; Type: Cigarettes; Tobacco use per day: 20; entered on: 09/03/21 Sex Male Care Team Personnel Name: Unknown PCP Unknown PCP,
--- OUTSIDE RECORDS SUMMARY | 2024-05-28 11:37 | XMS_ITS | Encounter Summary ---
Author Organization [facility] Address [address] [place] [address] Care Team Providers Care Collection Correspondent Name Role Phone Cameron Patel EQUIPMENT ANALYST Primary Care Provider [phone] Encounter Details Date Type Department Care Team (Late st Contact Info) Description 12/03/2022 Lab Requisition [facility] Pathology & Laboratory Medicine - [address] [address] Outr Resulting Lab, Provider Social History Tobacco Use Types Packs/Day Years Used Date Smoking Tobacco: Never Assessed Sex and Gender Information Value Date Recorded Sex Assigned at Not on file Gender Identity Not on file Sexual Orientation Not on file documented as of this encounter Plan of Treatment Not on file documented as of this encounter Procedures Procedure Name Priority Date/Time Associated Diagnosis Comments HEPATITIS C AB W REFLEX TO HCV RNA BY PCR Routine 12/02/2022 11:40 EST documented in this encounter Results * HEPATITIS C AB W REFLEX TO HCV RNA BY PCR (12/02/2022 11:40 EST) Hep C Antibody Negative Negative 12/04/2022 8:56 EST [facility] Blood VENOUS BLOOD / Unknown 12/02/2022 11:40 EST 12/03/2022 17:36 EST Provider Outr Resulting Lab CHEMISTRY & BLOOD GAS ORDERABLES [facility] [address] [place] [address] documented in this encounter Visit Diagnoses Not on filedocumented in this encounter Care Teams Collection Correspondent Relationship Specialty Start Date End Date Cameron Patel, EQUIPMENT ANALYST [address] [place] [id number] PCP - General 10/22/09 documented as of this encounter
--- OUTSIDE RECORDS SUMMARY | 2024-05-28 11:37 | XMS_ITS | Continuity of Care Document ---
Author Organization [facility] Address Unknown Care Team Providers Care Electronic Systems Technician Name Role Phone PATRIC ANDERSON Primary Care Physician Encounter Date(s): 07/20/23 - 07/20/23 [facility] [address] [place] [address] Encounter Diagnosis Narcolepsy and cataplexy(Discharge Diagnosis) - 07/20/23 Discharge Disposition: Home or Self Care Attending Physician: Anna Hoang MD Admitting Physician: Anna Hoang MD Assessment and Plan Future Appointments Appointment Date:07/25/2024 03:15:00 PM Scheduled Provider:Anna Hoang MD Location:[facility] Appointment Type:Office Visit Est - CSD Immunizations Given and Recorded Vaccine Date Status Refusal Reason influenza virus vaccine, inactivated 09/23/18 Deon rded Medications methylphenidate 20 mg oral tablet 20 mg = 1 tab(s), Oral, TID, Do not fill until 05/08/2022 V PMS check done 12/09/2021, # 90 tab(s), 0 Refill(s), Pharmacy: [facility], 177.5, cm, 12/31/21 13:06:00 EST, Height/Length Dosing, 112.4,kg, 12/31/21 13:06:00 EST, Weight Dosing Start Date: 05/08/22 Status: Ordered methylphenidate 20 mg oral tablet 20 mg = 1 tab(s), Oral, TID, do not fill until 06/08/2022, # 90 tab(s), 0 Refill(s), Pharmacy: [facility], 177.5, cm, 12/31/21 13:06:00 EST, Height/Length Dosing, 112.4, kg, 12/31/21 13:06:00 EST, Weight Dosing Start Date: 06/09/22 Status: Ordered methylphenidate 20 mg oral tablet 20 mg = 1 tab(s), Oral, TID, Do not fill until 08/08/2022, # 90 tab(s), 0 Refill(s), Pharmacy: [facility], 177.5, cm, 12/31/21 13:06:00 EST, Height/Length Dosing, 112.4, kg, 12/31/21 13:06:00 EST, Weight Dosing Start Date: 08/07/22 Status: Ordered Provigil 200 mg oral tablet 200 mg = 1 tab(s), Oral, BID, 1 tablet in the morning and 1 tablet at noon, # 60 tab(s), 5 Refill(s), Pharmacy: [facility], 177.5, cm, 12/31/21 13:06:00 EST, Height/Length Dosing, 112.4, kg, 12/31/21 13:06:00 EST, Weight Dosing Start Date: 12/31/21 Status: Ordered Provigil 200 mg oral tablet 200 mg = 1 tab(s), Oral, BID, 1 tablet in the morning and 1 tablet at noon, # 60 tab(s), 5 Refill(s), Pharmacy: [facility], 177.5, cm, 09/03/21 13:51:00 EDT, Height/Length Dosing, 110.8, kg, 09/03/21 13:51:00 EDT, Weight Dosing Start Date: 09/03/21 Status: Ordered Ritalin 10 mg oral tablet 20 mg = 2 tab(s), Oral, TID, Do not fill until 05/08/2023, # 180 tab(s), 0 Refill(s), Pharmacy: [facility], 177.5, cm, 12/31/21 13:06:00 EST, Height/Length Dosing, 112.4, kg, 12/31/21 13:06:00 EST, Weight Dosing Start Date: 05/06/23 Status: Ordered Ritalin 20 mg oral tablet [...] tab(s), Oral, TID, Do not fill until 05/08/2023, # 90 tab(s), 0 Refill(s), Pharmacy: [facility], 177.5, cm, 12/31/21 13:06:00 EST, Height/Length Dosing, 112.4, kg, 12/31/21 13:06:00 EST, Weight Dosing Start Date: 05/05/23 Status: Ordered Ritalin 20 mg oral tablet [...] Refill(s), Pharmacy: [facility], 177.5, cm, 12/31/21 13:06:00 EST, Height/Length [...] tab(s), Oral, TID, Do not fill until 03/08/2023, # 90 tab(s), 0 Refill(s), Pharmacy: [facility], 177.5, cm, 12/31/21 13:06:00 EST, Height/Length Dosing, 112.4, kg, 12/31/21 13:06:00 EST, Weight Dosing Start Date: 03/09/23 Status: Ordered Ritalin 20 mg oral tablet 20 mg = 1 tab(s), Oral, TID, Do not fill until 04/08/2023, # 90 tab(s), 0 Refill(s), Pharmacy: [facility], 177.5, cm, 12/31/21 13:06:00 EST, Height/Length Dosing, 112.4, kg, 12/31/21 13:06:00 EST, Weight Dosing Start Date: 04/08/23 Status: Ordered Ritalin 20 mg oral tablet 20 mg = 1 tab(s), Oral, TID, Do not fill until 04/08/2023, # 90 tab(s), 0 Refill(s), Pharmacy: [facility], 177.5, cm, 12/31/21 13:06:00 EST, Height/Length Dosing, 112.4, kg, 12/31/21 13:06:00 EST, Weight Dosing Start Date: 04/08/23 Status: Ordered Ritalin 20 mg oral tablet 20 mg = 1 tab(s), Oral, TID, Do not fill until 07/09/2022 V PMS checked on 04/07/2022, # 90 tab(s), 0 Refill(s), Pharmacy: [facility], 177.5, cm, 12/31/21 13:06:00 EST, Height/Length Dosing, 112.4, kg, 12/31/21 13:06:00 EST, Weight Dosing Start Date: 07/07/22 Status: Ordered Ritalin 20 mg oral tablet 20 mg = 1 tab(s), Oral, TID, do not refill until 12/09/22, # 90 tab(s), 0 Refill(s), Pharmacy: [facility], 177.5, cm, 12/31/21 13:06:00 EST, Height/Length Dosing, 112.4, kg, 12/31/21 13:06:00 EST, Weight Dosing Start Date: 12/07/22 Status: Ordered Ritalin 20 mg oral tablet 20 mg = 1 tab(s), Oral, TID, DO NOFILL UNTIL 04/08/2022 VPMS check 04/07/2022, # 90 tab(s), 0 Refill(s), Pharmacy: [facility], 177.5, cm, 12/31/21 13:06:00 EST, Height/Length Dosing, 112.4, kg, 12/31/21 13:06:00 EST, Weight Dosing Start Date: 04/07/22 Status: Ordered Ritalin 20 mg oral tablet 20 mg = 1 tab(s), Oral, TID, V PMS checked on 06/07/2023 Do not fill until 06/07/2023, # 90 tab(s), 0Refill(s), Pharmacy: [facility], 177.5, cm, 12/31/21 13:06:00 EST, Height/Length Dosing, 112.4, kg, 12/31/21 13:06:00 EST, Weight Dosing Start Date: 06/07/23 Status: Ordered Ritalin 20 mg oral tablet 20 mg = 1 tab(s), Oral, TID, Do not fill until 02/06/2022, V PMS check done 12/31/2021, # 90 tab(s), 0Refill(s), Pharmacy: [facility][id number], 177.5, cm, 12/31/21 13:06:00 EST, Height/Length Dosing, 112.4, kg, 12/31/21 13:06:00 EST, Weight Dosing Start Date: 02/03/22 Status: Ordered Ritalin 20 mg oral tablet 20 mg = 1 tab(s), Oral, BID, Do not fill until 03/08/2022, # 90 tab(s), 0 Refill(s), Pharmacy: [facility], 177.5, cm, 12/31/21 13:06:00 EST, Height/Length Dosing, 112.4, kg, 12/31/21 13:06:00 EST, Weight Dosing Start Date: 03/06/22 Status: Ordered Ritalin 20 mg oral tablet 20 mg = 1 tab(s), Oral, TID, Do not fill until 07/20/2023, VPMS check done 07/20/2023, # 90 tab(s), 0Refill(s), Pharmacy: [facility], 177.5, cm, 12/31/21 13:06:00 EST, Height/Length Dosing, 112.4, kg, 12/31/21 13:06:00 EST, Weight Dosing Start Date: 07/20/23 Status: Ordered Ritalin 20 mg oral tablet 20 mg = 1 tab(s), Oral, TID, Do not fill until 08/11/2021, # 90 tab(s), 0 Refill(s), Pharmacy: [facility] Start Date: 08/11/21 Status: Ordered Sunosi 150 mg oral tablet 150 mg = 1 tab(s), Oral, qAM, # 1 tab(s), 5 Refill(s), Pharmacy: [facility] Start Date: 07/10/21 Status: Ordered Wakix 17.8 mg oral tablet 35.6 mg = 2 tab(s), Oral, qAM, Start 1/2 tablet a day for 3 days then 1 tablet a day for 3 days then 2 tablets a day, # 60 tab(s), 0 Refill(s), Pharmacy: [facility], 177.5, cm, 09/03/21 13:51:00 EDT, Height/Length Dosing, 110.8, kg, 09/03/21 13:... Start Date: 09/03/21 Status: Ordered Wakix 17.8 mg oral tablet 35.6 mg = 2 tab(s), Oral, qAM, Start with 1 pill/day and increase to 2 pills/day after 14 days., # 60 tab(s), 5 Refill(s), called to pharmacy (Rx) Start Date: 01/02/22 Status: Ordered Problem List Condition Confirmation Course Effective Dates Status Health St atus Informant Narcolepsy and cataplexy Confirmed Active Vital Signs Most recent to oldest [Reference Range]: 1 Peripheral Pulse Rate [60-100 bpm] 93 bp m (07/20/23 3:17 PM) Respiratory Rate [14-20 br/min] 16 br/mi n (07/20/23 3:17 PM) Blood Pressure 110/69mmHg (07/20/23 3:17 PM) Mean Arterial Presure, Manual 83 mmHg (07/20/23 3:17 PM) Social History Social History Type Response Smoking Status Current every day tino shafer; Type: Cigarettes; Tobacco use per day: 20; entered on: 09/03/21 Sex Male Patient Care team information Care Team Personnel Name: PATRIC ANDERSON, Member Role: Primary Care Physician Address: Address: [address] [place] [address] [place] [facility] [place] [address]
--- OUTSIDE RECORDS SUMMARY | 2024-05-28 11:37 | XMS_ITS | Continuity of Care Document ---
Author Organization [facility] Address Unknown Care Team Providers Care Talent Partner Name Role Phone Unknown PCP, Unknown PCP Primary Care Physician Unavailable Encounter Date(s): 09/03/21 - 09/03/21 [facility] [address] [place] [address] Encounter Diagnosis Narcolepsy and cataplexy(Discharge Diagnosis) - 09/03/21 Discharge Disposition: Home or Self Care Attending Physician: Anna Hoang MD Admitting Physician: Anna Hoang MD Assessment and Plan Future Appointments Appointment Date:12/03/2021 09:45:00 AM Scheduled Provider:Anna Hoang MD Location:[facility] Appointment Type:Office Visit Telehealth - [facility] Diagnostic Tests Pending * Miscellaneous Sutton Test 09/03/21 Immunizations Given and Recorded Vaccine Date Status Refusal Reason influenza virus vaccine, inactivated 09/23/18 Deon rded Medications Provigil 200 mg oral tablet 200 mg = 1 tab(s), Oral, BID, 1 tablet in the morning and 1 tablet at noon, # 60 tab(s), 5 Refill(s), Pharmacy: [facility], 177.5, cm, 09/03/21 13:51:00 EDT, Height/Length Dosing, 110.8, kg, 09/03/21 13:51:00 EDT, Weight Dosing Start Date: 09/03/21 Status: Ordered Ritalin 20 mg oral tablet 20 mg = 1 tab(s), Oral, TID, DO NOT fill until 07/12/2021, # 90 tab(s), 0 Refill(s), Pharmacy: [facility] Start Date: 07/10/21 Status: Ordered Ritalin 20 mg oral tablet 20 mg = 1 tab(s), Oral, TID, do not fill until 06/11/2021, # 90 tab(s), 0 Refill(s), [facility]acy: [facility] Start Date: 06/11/21 Status: Ordered Ritalin 20 mg oral tablet 20 mg = 1 tab(s), Oral, TID, Do not fill until 09/10/2021, # 90 tab(s), 0 Refill(s), Pharmacy: [facility], 177.5, cm, 09/03/21 13:51:00 EDT, Height/Length Dosing, 110.8, kg, 09/03/21 13:51:00 EDT, Weight Dosing Start Date: 09/03/21 Status: Ordered Ritalin 20 mg oral tablet 20 mg = 1 tab(s), Oral, TID, Do not fill until 08/11/2021, # 90 tab(s), 0 Refill(s), Pharmacy: [facility] Start Date: 08/11/21 Status: Ordered Sunosi 150 mg oral tablet 150 mg = 1 tab(s), Oral, qAM, # 1 tab(s), 5 Refill(s), Pharmacy: [facility] Start Date: 07/10/21 Status: Ordered Wakix 17.8 mg oral tablet 35.6 mg = 2 tab(s), Oral, qAM, Start 1/2 tablet a day for 3 days then 1 tablet a day for 3 days then 2 tablets a day, # 60 tab(s), 0 Refill(s), Pharmacy: [facility], 177.5, cm, 09/03/21 13:51:00 EDT, Height/Length Dosing, 110.8, kg, 09/03/21 13:... Start Date: 09/03/21 Status: Ordered Results Laboratory List Name Date Drug Screen Urine (Urine Tox Screen) Most recent to oldest [Reference Range]: 1 Benzodiazepines Screen Not Detected *NA* (09/03/21 2:31 PM) Cocaine Screen Not Detected *NA* (09/03/21 2:31 PM) Opiate Screen Not Detected *NA* (09/03/21 2:31 PM) Phencyclidine Screen Not Detected *NA* (09/03/21 2:31 PM) Tricyclics Screen Not Detected *NA* (09/03/21 2:31 PM) Amphetamines Screen Not Detected *NA* (09/03/21 2:31 PM) Barbiturates Screen Not Detected *NA* (09/03/21 2:31 PM) T-Cannabinol Screen Not Detected *NA* (09/03/21 2:31 PM) Methamphetamines Screen Not Detected *NA* (09/03/21 2:31 PM) Methadone Screen Not Detected *NA* (09/03/21 2:31 PM) Oxycodone Screen Not Detected *NA* (09/03/21 2:31 PM) Buprenorphine Screen Not Detected *NA* (09/03/21 2:31 PM) Vital Signs Most recent to oldest [Reference Range]: 1 Temperature Temporal Artery [36.3-37.8 D egC] 36.5 DegC (09/03/21 1:51 PM) Peripheral Pulse Rate [60-100 bpm] 98 bp m (09/03/21 1:51 PM) Respiratory Rate [14-20 br/min] 16 br/mi n (09/03/21 1:51 PM) Blood Pressure 136/88mmHg (09/03/21 1:51 PM) Mean Arterial Presure, Manual 104 mmHg (09/03/21 1:51 PM) Social History Social History Type Response Smoking Status Current every day tino shafer; Type: Cigarettes; Tobacco use per day: 20; entered on: 09/03/21 Sex Male
--- OUTSIDE RECORDS SUMMARY | 2024-05-28 11:37 | XMS_ITS | Encounter Summary ---
Author Organization [facility] Address [address] [place] [address] Care Team Providers Care Lead Generator Name Role Phone Jorge Cameron Llanos ADMINISTRATIVE RESOURCES ASSOCIATE Primary Care Provider [phone] Encounter Details Date Type Department Care Team (Late st Contact Info) Description 12/03/2022 Lab Requisition [facility] Pathology & Laboratory Medicine - [address] [address] Outr Resulting Lab, Provider Social History Tobacco [...] Procedure Name Priority Date/Time Associated Diagnosis Comments HIV 1/2 ANTIGEN AND ANTIBODY, 4TH GENERATION Routine 12/02/2022 11:40 EST documented in this encounter Results * HIV 1/2 ANTIGEN AND ANTIBODY, 4TH GENERATION (12/02/2022 11:40 EST) HIV 1 and 2 Antibody/p24 Antigen, 4th Generation Negative Negative 12/04/2022 9:22 EST [facility] Comment:If acute HIV-1 infec tion is suspected in a high risk patient, submit plasma specimen for HIV-1 RNA quantitation test. Blood VENOUS BLOOD / Unknown 12/02/2022 11:40 EST 12/03/2022 17:37 EST Narrative [facility] - 12/04/2022 9:22 EST Fourth Generation assay performed on the Siemens Advanced [employer] XPT. Provider Outr Resulting Lab IMMUNOLOGY A ND SEROLOGY ORDERABLES [facility] [address] [place] [address] documented in this encounter Visit Diagnoses Not on filedocumented in this encounter Care Teams Lead Generator Relationship Specialty Start Date End Date Cameron Patel, ADMINISTRATIVE RESOURCES ASSOCIATE [address] [facility] [place] [address] PCP - General 10/22/09 documented as of this encounter
--- OUTSIDE RECORDS SUMMARY | 2024-05-28 11:37 | XMS_ITS | Clinical Summary ---
Author Organization [facility] Address [address] [place] [address] Care Team Providers Care Equipment Service Associate Name Role Phone Jorge Cameron Viet MANAGER MANAGED CARE Primary Care Provider [phone] Medications Medication Sig Dispensed Refills Start Date End Date Status LOSARTAN POTASSIUM (COZAAR ORAL) Take by mouth. Active METHENAM/ME BLUE/BA/SALICY/HYO (METHYLPHEN ORAL) Take by mouth. Act burak UNABLE TO FIND Amphetamine unspecified Active CLOMIPRAMINE HCL (CLOMIPRAMINE ORAL) Take by mouth. A ctive MODAFINIL (PROVIGIL ORAL) Take by mouth. Active VENLAFAXINE HCL (EFFEXOR ORAL) Take by mouth. Active SILDENAFIL CITRATE (VIAGRA ORAL) Take by mouth. Active CALCIUM CARBONATE/MAG HYDROX (ROLAIDS ORAL) Take by mouth. Active ACETAMINOPHEN (TYLENOL ORAL) Take by mouth. Active Medical History Medical History Date Comments Hypertension Family History Medical History Relation Comments Anesthesia Problem Brother Anesthesia Problem Other son- excessiv e sleepiness Relation Status Comments Brother Other Social History Tobacco Use Types Packs/Day Years Used Date Smoking Tobacco: Never Assessed Sex and Gender Information Value Date Recorded Sex Assigned at Not on file Gender Identity Not on file Sexual Orientation Not on file Obstetrics History Plan of Treatment Health Maintenance Due Date Last Done Comments Hepatitis B Vaccine (1 of 3 - 19+ 3-dose series) 04/14 COVID-19 Vaccine (2022-24 season) 2023 Hepatitis C Screen Completed 12/02/2022 Procedures Procedure Name Priority Date/Time Associated Diagnosis Comments HEPATITIS C AB W REFLEX TO HCV RNA BY PCR Routine 12/02/2022 11:40 EST from Last 3 Months or Most Recently Relevant to Health Maintenance Results * HEPATITIS C AB W REFLEX TO HCV RNA BY PCR (12/02/2022 11:40 EST) Hep C Antibody Negative Negative 12/04/2022 8:56 EST [facility] Blood VENOUS BLOOD / Unknown 12/02/2022 11:40 EST 12/03/2022 17:36 EST Provider Outr Resulting Lab CHEMISTRY & BLOOD GAS ORDERABLES [facility] [address] [place] [address] from Last 3 Months or Most Recently Relevant to Health Maintenance Care Teams Equipment Service Associate Relationship Specialty Start Date End Date Cameron Patel, MANAGER MANAGED CARE [address] [place] [address] PCP - General 10/22/09
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
--- OUTSIDE RECORDS SUMMARY | 2024-05-28 11:37 | XMS_ITS | Referral Summary ---
Author Organization [facility] Address [address] [place] [address] Care Team Providers Care Display Fabricator Name Role Phone Jorge Cameron Viet PURCHASE ORDER CHECKER Primary Care Provider [phone] Medications Medication Sig Dispensed Refills Start Date [...] ACETAMINOPHEN (TYLENOL ORAL) Take by mouth. Active Social History Tobacco Use Types Packs/Day Years Used Date Smoking Tobacco: Never Assessed Sex and Gender Information Value Date Recorded Sex Assigned at Not on file Gender Identity Not on file Sexual Orientation Not on file Plan of Treatment Not on file Procedures Procedure Name Priority Date/Time Associated Diagnosis Comments HEPATITIS C AB W REFLEX TO HCV RNA BY PCR Routine 12/02/2022 11:40 EST from Last 3 Months or Most Recently Relevant to Health Maintenance Results * HEPATITIS C AB W REFLEX TO HCV RNA BY PCR (12/02/2022 11:40 EST) Hep C Antibody Negative Negative 12/04/2022 8:56 EST [facility] Blood VENOUS BLOOD / Unknown 12/02/2022 11:40 EST 12/03/2022 17:36 EST Provider Outr Resulting Lab CHEMISTRY & BLOOD GAS ORDERABLES [facility] [address] [place] [address] from Last 3 Months or Most Recently Relevant to Health Maintenance Care Teams Display Fabricator Relationship Specialty Start Date End Date Cameron Patel, PURCHASE ORDER CHECKER [address] [facility] [place] [id number] PCP - General 10/22/09
--- OUTSIDE RECORDS SUMMARY | 2024-05-28 11:37 | XMS_ITS | Continuity of Care Document ---
Author Organization [facility] Address Unknown Care Team Providers Care Bacteriologist Dairy Name Role Phone PATRIC ANDERSON Primary Care Physician [phone] Encounter Date(s): 07/20/23 - 07/20/23 [facility] [address] [place], [place] [address] Discharge Disposition: Home or Self Care Attending Physician: Anna Hoang MD Admitting Physician: Anna Hoang MD Assessment and Plan Future Appointments Appointment Date:07/25/2024 03:15:00 PM Scheduled Provider:Anna Hoang MD Location:[facility] Appointment Type:Office Visit Est - CSD Immunizations Given and Recorded Vaccine Date Status Refusal Reason influenza virus vaccine, inactivated 09/23/18 Deon rded Medications methylphenidate 20 mg oral tablet 20 mg = 1 tab(s), Oral, TID, Do not fill until 05/08/2022 V PMS check done 12/09/2021, # 90 tab(s), 0 Refill(s), Pharmacy: [facility], 177.5, cm, [...] 07/12/2021, # 90 tab(s), 0 Refill(s), Pharmacy: [facility] Start Date: 07/10/21 Status: Ordered Ritalin 20 mg oral tablet 20 mg = 1 tab(s), Oral, TID, do not fill until 06/11/2021, # 90 tab(s), 0 Refill(s), Pharmacy: [facility] Start Date: 06/11/21 Status: Ordered Ritalin [...] # 90 tab(s), 0 Refill(s), Pharmacy: [facility], 177.5, cm, 12/31/21 13:06:00 EST, Height/Length Dosing, [...] 04/07/2022, # 90 tab(s), 0 Refill(s), Pharmacy: [facility], 177.5, cm, 12/31/21 13:06:00 EST, Height/Length Dosing, 112.4, kg, 12/31/21 13:06:00 EST, Weight Dosing Start Date: 07/07/22 Status: Ordered Ritalin 20 mg oral tablet 20 mg = 1 tab(s), Oral, TID, do not refill until 12/09/22, # 90 tab(s), 0 Refill(s), Pharmacy: [facility], 177.5, cm, 12/31/21 13:06:00 EST, Height/Length Dosing, 112.4, kg, 12/31/21 13:06:00 EST, Weight Dosing Start Date: 12/07/22 Status: Ordered Ritalin 20 mg oral tablet 20 mg = 1 tab(s), Oral, TID, DO NOFILL UNTIL 04/08/2022 VPMS check 04/07/2022, # 90 tab(s), 0 Refill(s), Pharmacy: [facility], 177.5, cm, 12/31/21 13:06:00 EST, Height/Length Dosing, 112.4, kg, 12/31/21 13:06:00 EST, Weight Dosing Start Date: 04/07/22 Status: Ordered Ritalin 20 mg oral tablet 20 mg = 1 tab(s), Oral, TID, V PMS checked on 06/07/2023 Do not fill until 06/07/2023, # 90 tab(s), 0Refill(s), Pharmacy: [facility], 177.5, cm, 12/31/21 13:06:00 EST, Height/Length Dosing, 112.4, kg, 12/31/21 13:06:00 EST, Weight Dosing Start Date: 06/07/23 Status: Ordered Ritalin 20 mg oral tablet 20 mg = 1 tab(s), Oral, TID, Do not fill until 02/06/2022, V PMS check done 12/31/2021, # 90 tab(s), 0Refill(s), Pharmacy: [id number], 177.5, cm, 12/31/21 13:06:00 EST, Height/Length Dosing, [...] qAM, # 1 tab(s), 5 Refill(s), Pharmacy: [facility] Start Date: 07/10/21 Status: Ordered Wakix [...] atus Informant Narcolepsy and cataplexy Confirmed Active Results Laboratory List Name Date Drug Screen Urine (Urine Tox Screen) 07/09 12/31 Most recent to oldest [Reference Range]: 1 Benzodiazepines Screen Not Detected *NA* (07/20/23 4:02 PM) Cocaine Screen Not Detected *NA* (07/20/23 4:02 PM) Opiate Screen Not Detected *NA* (07/20/23 4:02 PM) Phencyclidine Screen Not Detected *NA* (07/20/23 4:02 PM) Tricyclics Screen Not Detected *NA* (07/20/23 4:02 PM) Amphetamines Screen Not Detected *NA* (07/20/23 4:02 PM) Barbiturates Screen Not Detected *NA* (07/20/23 4:02 PM) T-Cannabinol Screen Detected *NA* (07/20/23 4:02 PM) Methamphetamines Screen Not Detected *NA* (07/20/23 4:02 PM) Methadone Screen Detected *NA* (07/20/23 4:02 PM) Oxycodone Screen Not Detected *NA* (07/20/23 4:02 PM) Buprenorphine Screen Not Detected *NA* (07/20/23 4:02 PM) Social History Social History Type Response Smoking Status Current every day tino shafer; Type: Cigarettes; Tobacco use per day: 20; entered on: 09/03/21 Sex Male Patient Care team information Care Team Personnel Name: PATRIC ANDERSON, Member Role: Primary Care Physician Address: Address: [address] [place] [address] [place] [address]
--- OUTSIDE RECORDS SUMMARY | 2024-05-28 11:37 | XMS_ITS | Continuity of Care Document ---
Author Organization [facility] Address Unknown Care Team Providers Care Delivery Rn Name Role Phone Unknown PCP, Unknown PCP Primary Care Physician Unavailable Encounter Date(s): 06/11/21 - 06/11/21 [facility] [address] [place] [address] Encounter Diagnosis Narcolepsy and cataplexy(Discharge Diagnosis) - 06/11/21 Discharge Disposition: Home or Self Care Attending Physician: Anna Hoang MD Admitting Physician: Anna Hoang MD Medications Ritalin 20 mg oral tablet 20 mg = 1 tab(s), Oral, TID, do not fill until 06/11/2021, # 90 tab(s), 0 Refill(s), Pharmacy: [facility] Start Date: 06/11/21 Status: Ordered Social History Social History Type Response Sex Male
--- OUTSIDE RECORDS SUMMARY | 2024-05-28 11:37 | XMS_ITS | Encounter Summary ---
Author Organization [facility] Address [address] [place] [address] Care Team Providers Care Truck Supervisor Name Role Phone Cameron Patel COTTON HEADER Primary Care Provider [phone] Encounter Details Date Type Department Care Team (Late st Contact Info) Description 05/27/2010 Abstract Used for ABSTRACTING Data [phone] Cameron Patel COTTON HEADER [address] [facility] [place] [address] Social History Tobacco Use Types Packs/Day Years Used Date Smoking Tobacco: Never Assessed Sex and Gender Information Value Date Recorded Sex Assigned at Not on file Gender Identity Not on file Sexual Orientation Not on file documented as of this encounter Plan of Treatment Not on file documented as of this encounter Visit Diagnoses Not on filedocumented in this encounter Historical Medications * This list may reflect changes made after this encounter. Medication Sig Dispensed Refills Start Date End Date ACETAMINOPHEN (TYLENOL ORAL) Take by mouth. CALCIUM CARBONATE/MAG HYDROX (ROLAIDS ORAL) Take by mouth. SILDENAFIL CITRATE (VIAGRA ORAL) Take by mouth. VENLAFAXINE HCL (EFFEXOR ORAL) Take by mouth. MODAFINIL (PROVIGIL ORAL) Take by mouth. CLOMIPRAMINE HCL (CLOMIPRAMINE ORAL) Take by mouth. UNABLE TO FIND Amphetamine unspecified METHENAM/ME BLUE/BA/SALICY/HYO (METHYLPHEN ORAL) Take by mouth. LOSARTAN POTASSIUM (COZAAR ORAL) Take by mouth. added in this encounter Care Teams Truck Supervisor Relationship Specialty Start Date End Date Cameron Patel NP [address] [place] [address] PCP - General 10/22/09 documented as of this encounter
--- OUTSIDE RECORDS SUMMARY | 2024-05-28 11:37 | XMS_ITS | Encounter Summary ---
Author Organization [facility] Address [address] [place] [address] Care Team Providers Care Patient Financial Counselor Name Role Phone Jorge Cameron Llanos MANAGER PERIOPERATIVE Primary Care Provider [phone] Encounter Details Date Type Department Care Team (Late st Contact Info) Description 10/02/2020 Lab Requisition [facility] Pathology & Laboratory Medicine - [address] [address] Outr Resulting Lab, Provider Social History Tobacco [...] HIV 1/2 ANTIGEN AND ANTIBODY, 4TH GENERATION After X-Ray 09/19/2020 16:00 EST documented in this encounter Results * HIV 1/2 ANTIGEN AND ANTIBODY, 4TH GENERATION (09/19/2020 16:00 EST) HIV 1 and 2 Antibody/p24 Antigen, 4th Generation Negative Negative 10/22/2020 13:[address] [facility] Comment: If acute HIV-1 infection is suspected in a high risk ??patient, submit plasma specimen for HIV-1 RNA quantitation test. Fourth Generation assay performed on the Siemens Centaur. Blood VENOUS BLOOD / Unknown 09/19/2020 16:00 EST 10/22/2020 7:12 EST Provider Outr Resulting Lab IMMUNOLOGY A ND SEROLOGY ORDERABLES [facility] [address] [place] [address] documented in this encounter Visit Diagnoses Not on filedocumented in this encounter Care Teams Patient Financial Counselor Relationship Specialty Start Date End Date Cameron Patel, MANAGER PERIOPERATIVE [address] [facility] [place] [address] PCP - General 10/22/09 documented as of this encounter
--- OUTSIDE RECORDS SUMMARY | 2024-05-28 11:37 | XMS_ITS | Encounter Summary ---
Author Organization [facility] Address [address] [place] [address] Care Team Providers Care Senior Chemical Engineer Name Role Phone Unavailable Primary Care Provider Unavailabl e Encounter Details Date Type Department Care Team (Latest Contact Info) Description 03/09/2008 10:00 EDT - 03/09/2008 11:59 EDT Hospital Encounter [facility] - Other [address] [place] [address] AttarianWil MD [address] [address] Discharge Disposition: Auto Discharge Social History Tobacco Use Types Packs/Day Years Used Date Smoking Tobacco: Never Assessed Sex and Gender Information Value Date Recorded Sex Assigned at Not on file Gender Identity Not on file Sexual Orientation Not on file documented as of this encounter Discharge Disposition Disposition Code Departure Means Destination Auto Discharge documented in this encounter Plan of Treatment Pending Results Name Type Priority Associated Diagnoses Date /Time SURGICAL PATHOLOGY Pathology Routine 2008 0:00 EST SURGICAL PATHOLOGY Pathology Routine 2008 0:00 EST Scheduled Orders Name Type Priority Associated Diagnoses Orde r Schedule SURGICAL PATHOLOGY Pathology Routine For me dications that can be administered at any time during the hospitalization for visit such as immunizations. for 1 Occurrences starting 10/19/2009 SURGICAL PATHOLOGY Pathology Routine For me dications that can be administered at any time during the hospitalization for visit such as immunizations. for 1 Occurrences starting 10/19/2009 documented as of this encounter Procedures Procedure Name Priority Date/Time Associated Diagnosis Comments SURGICAL PATHOLOGY Routine 10/17/2009 0:00 EST ORBITS FOR FOREIGN BODY 03/09/2008 10:17 EDT documented in this encounter Results * SURGICAL PATHOLOGY (10/17/2009 0:00 EST) Pathology Report: SURGICAL PATHOLOGY REPORT ? Reports generated via electronic interface contain original data; ? however they are lacking the format of the original report. ? Caution should be taken when reading/interpreti ng unformatted reports. ? Name: ? QUIANA, GEOVANNA P ? Accession #: ? [id number] ? : ? 1975 (Age: 34) ??M ? Collect Date: ? 10/17/2009 ? Location: ? [facility] ? Receive Date: ? 10/18/2009 ? Provider: CAROL AJAMIE MD ? Copy to: ? Final Pathologic Diagnosis: ? A. ?Vas deferens, right, excision: ? 1. ?Complete cross section is present. ? B. ?Vas deferens, left, excision: ? 1. ?Complete cross section is present. ? Document reviewed and electronically signed by: ? Mikki Shay MD ? Report ??Date: 10/22/2009 14:23 ? By the signature above, the attending physician certifies that he/she has ? personally conducted a gross and/or microscopic examination of the described ? specimens and rendered or confirmed the above diagnosis. ? Specimen(s) Received: ? Keon vas deferens ? Clinical History: ? Not listed ? Gross Description: ? Received in formalin labelled Quiana, Geovanna and R vas def is a 1.2 cm in length by 0.2 cm in diameter firm, white, tubular segment of tissue with a ? pinpoint lumen. ??Two brewery representative cross sections are submitted as (A). ? Received in formalin labelled Quiana Geovanna and L vas def is a 0.8 cm in ? length by 0.2 cm in diameter firm, white, focally light maynard tubular segment of ?? tissue with a pinpoint lumen. ??Two brewery representative cross sections of the specimen are submitted as (B). (Mary Anne Cheng)/mpl ? End of Report ? 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 Two views of the orbits show no metallic foreign body. 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 Two views of the orbits show no metallic foreign body. Wil Llanos Attarian MD [facility] ORDERABLES documented in this encounter Visit Diagnoses Not on filedocumented in this encounter
--- OUTSIDE RECORDS SUMMARY | 2024-05-28 11:37 | XMS_ITS | Encounter Summary ---
Author Organization [facility] Address [address] [place] [address] Care Team Providers Care Commercial Collections Specialist Name Role Phone Unavailable Primary Care Provider Unavailabl e Encounter Details Date Type Department Care Team (Late st Contact Info) Description 11/23/2005 14:17 [facility] Hospital Encounter [address] [address] Jorge Urrutia MD [address] [place] [id number] Social History Tobacco Use Types Packs/Day Years [...]
--- OUTSIDE RECORDS SUMMARY | 2024-05-28 11:37 | XMS_ITS | Encounter Summary ---
Author Organization [facility] Address [address] [place] [address] Care Team Providers Care Rf Design Engineer Name Role Phone Unavailable Primary Care Provider Unavailabl e Encounter Details Date Type Department Care Team (Late st Contact Info) Description 03/09/2008 Before PRISM Converted Visit (Maple) [facility] - Maple conversion [address] [place] [address] Wil Tay MD [address] [address] Social History Tobacco Use Types Packs/Day Years Used Date Smoking Tobacco: Never Assessed Sex and Gender Information Value Date Recorded Sex Assigned at Not on file Gender Identity Not on file Sexual Orientation Not on file documented as of this encounter Progress Notes * Wil Tay* MD SANTINO - 08/09/2009 0909 EDT March 09, 2008 Anna Hoang MD Counts Include [facility] At [facility] [address] [address] Dear Anna: Thank you for referring Mr. Dixon to our [facility] for a second opinion. To summarize, Mr. Arceos a 32-year-old man with a four to five year history of severe cataplexy, hypnagogic hallucinations, and sleep paralysis, and an excessive sleepiness that dates back to his teenage years. You have supervised a thorough workup for his narcolepsy, and he has both the genetic marker, as well as MSLT evidence for narcolepsy. In the past, he has tried Xyrem for his cataplexy, but had a bad reaction to it and he is no longer on it. Currently he is on 150 mg of clomipramine and 150 mg of Effexor. In addition to the two PSGs, the MSLT, and the MWT and the genetic testing that you had ordered, prior to all that he had had a CAT scan of his head, which was normal, and an EEG that was normal in [place], [place]. He currently is taking a combination of Ritalin 60 mg a day, Adderall 30 mg a day, and Provigil 400mg a day, and is barely staying awake. He states that the combination of three medications has onlyimproved his excessive sleepiness by about 20%, and his cataplexy is improved by about 50%. His cataplexy is triggered by excitement and surprise, especially seeing someone thathe has not seen for awhile. As you know, these are typical triggers for cataplexy. His hypnagogic hallucinations and sleepparalysis go uncontrolled despite all the medications. He also has occasional dream-enacting behavior and some sleepwalking episodes, especially from daytime naps, which is not unusual in cataplexy. He goes to bed around 10 p.m. and falls asleep immediately. He has multiple brief nocturnal awakenings, one of which is to go to the bathroom and have a snack. The rest he usually stay in bed. He getsup between 8 and 9 in the morning. During the day, he takes five to 10 naps, lasting from 20 minutes to an hour each. Usually if he takes more naps, they are shorter obviously. He keeps the same hours weekdays and weekends. He is an occasional snorer. He does not have any pauses in his breathing as documented in his sleep study. He has some PLMs, occasional heartburn, dry mouth all day long, and some bruxism and night sweats. He denies choking. He denies headaches. He denies symptoms of restless legs. His Flora sleepiness is 23/24. PAST MEDICAL HISTORY Hypertension. He has just recently developed hypertension. He did not respond well to lisinopril, so he is currently on Cozaar and this has been helping his blood pressure some. It has not worsened his cataplexy any. ALLERGIES No known drug allergies. MEDICATIONS Cozaar, methylphenidate, amphetamine, clomipramine, Provigil, Effexor, Viagra, Rolaids, and Tylenol. SOCIAL HISTORY He has a [id number] history of smoking, which is a lot for a young man like him. He drinks 8-12 cups of coffee a day. No other caffeine intake. No alcohol. No drug use. 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 He is not driving. He has two children. FAMILY HISTORY His son has developed excessive sleepiness, but no other history of narcolepsy. REVIEW OF SYSTEMS A 13-point review of systems is done and is available in his chart. PHYSICAL EXAMINATION Height is 71 inches and weight 251 pounds. Blood pressure is 130/88. Pulse is 80 beats per minute. Neurologic exam: Mental status: Alert and oriented x4. He has normal affect, although he is sleepy and whenever left undisturbed for a few minutes, he starts dozing off. Cranial nerves: Pupils are equally reactive to light. No APD. Visual king: He has a left central hemianopsia, but his peripheral visual king are intact bilaterally. He has normal fundi. No papilledema. Extraocular movements are intact. No nystagmus. No facial sensation. No facial asymmetry. Tongue is midline. Palate is symmetrically elevated. Shoulder shrug normal. Motor exam: Normal bulk and tone. Strength is 5/5. There are no abnormal movements. Sensory: Intact to all modalities. Gait: Normal toe, heel, and tandem walking both forwards and backwards. Coordination: Normal vesrch-tg-elygdu and nmxtoj-be-vowt and rapid alternating movements. DTRs are +2 bilaterally. ASSESSMENT Severe narcolepsy with cataplexy. In fact, this is one of the most severe cases I have seen. He should not be driving with this degree of excessive sleepiness, and in fact he should not be working with this degree of excessive sleepiness. I think he should be on disability at least until; if possible, his symptoms are controlled. Because of his driving restriction, which I agree with, they would l allison to follow up with you, and I would be happy to consult over the phone if need be, but this is what I would recommend. ?? far as his cataplexy is concerned, I would recommend tapering off the clomipramine and starting him on Vivactil 5mg TID and titrate up. This also has an activating effect. In the future, you can increase the Vivactil if need be and also increase the Effexor and not use the clomipramine since clearly it has failed to work well. ?? As far as his excessive sleepiness is concerned, he does not think that Ritalin is doing much, and of all the three medications, it is one that is most associated with hypertension, and I do not want to make his hypertension worse, so I would recommend stopping the Ritalin, increasing the Provigil to 600 mg, which he states helped him before, and then working on adding an Adderall XR maybe at 30 mg in the morning if the Provigil alone does not work and then continuing supplementation of 10 mg t.i.d. of the regular. If the Adderall does not work, you may consider switching him to the new once-a-day slow release amphetamine-based stimulant called Vyvanse. ?? I have also ordered an MRI of his brain, again because of the limitations of driving, he is going to have it in his hometown. 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 He will have the MRI to rule out any hypothalamic tumors that may be causing his degree of severe sleepiness and cataplexy in addition to the visual field cut on the exam. As mentioned above, because of the driving limitations, they would like to follow up with you because of the distance to drive is much closer and it is easier to get there than come all the way here,and I will be happy to consult with you over the phone, and I will see him back if need be. Other medications that may be useful in the future, especially for the cataplexy, would be a pure SSRI likeZoloft or fluoxetine instead of the Effexor, but we will be in touch before then. Again, thank you for asking me to consult on this nice young man with his severe narcolepsy and cataplexy. Please do not hesitate to contact me with any questions. The office number is . Sincerely, Signed by Wil Tay MD 03/09/2008 11:25 Dictated by: Wil Tay MD - Wil Tay MD A - LBR Job ID: [id number] Document ID: [id number] cc: Carol Leyva, ALICE Hoang MD *Lux Dixon, [address] [facility], [address], [place] [address]* documented in this encounter Plan of Treatment Not on file documented as of this encounter Visit Diagnoses Not on filedocumented in this encounter
--- NOTE | 2024-05-28 11:38 | DI.VRAD_ITS ---
PROCEDURE INFORMATION: Exam: CTA Abdominal Aorta and Bilateral Lower Extremities (Run-off) With Contrast Exam date and time: 05/28/2024 10:33 AM Age: 49 years old Clinical indication: Other: Calf pain, dim sensation, no dp pulse TECHNIQUE: Imaging protocol: Computed tomographic angiography of the of the abdominal aorta, pelvis and bilateral lower extremities with contrast. 3D rendering (Not supervised by radiologist): MIP and/or 3D reconstructed images were created by the technologist. Contrast material: OMNIPAQUE 350; Contrast volume: 150 ml; Contrast route: INTRAVENOUS (IV); COMPARISON: MRI - L LOWER EXT WO AND W CON 08/13/2017 1:19 PM FINDINGS: Pulmonary arteries: The vasculature demonstrates diffuse mild atherosclerotic calcification. Aorta: No aortic aneurysm. No aortic dissection. Celiac trunk and mesenteric arteries: No occlusion or significant stenosis. Renal arteries: No occlusion or significant stenosis. Right iliac arteries: No occlusion or significant stenosis. Right femoral/popliteal arteries: No occlusion or significant stenosis. Right infrapopliteal arteries: No occlusion or significant stenosis. Left iliac arteries: No occlusion or significant stenosis. Left femoral/popliteal arteries: Patchy plaque throughout the femoral artery with areas of moderate stenosis. There is a 3 cm complete occlusion of the mid popliteal artery that reconstitutes medially just prior to the trifurcation. Left infrapopliteal arteries: No occlusion or significant stenosis. Lungs: No consolidations or pleural effusions. Liver: No mass. Gallbladder and biliary ducts: Gallbladder is contracted. No intraluminal stones or pericholecystic fluid. Pancreas: The pancreas is normal. Spleen: The spleen is normal. Adrenal glands: The adrenal glands are normal. Kidneys and ureters: Normal. No hydronephrosis or nephrolithiasis. Stomach and bowel: Unremarkable. No obstruction. No mucosal thickening. Appendix: A normal appendix is identified. Urinary bladder: Unremarkable. No mass. Reproductive: Unremarkable as visualized. Intraperitoneal space: Unremarkable. No free air. No significant fluid collection. Lymph nodes: No lymphadenopathy. Bones/joints: No acute fracture. No dislocation. Soft tissues: Unremarkable. 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 Dictated and Authenticated by: Dave Fischer MD. Ordering:LEYDA Littlejohn MD
[2024-05-28] MEDS: oxyCODONE 5 mg/Acetaminophen 325 mg TAB 2 TAB PO ×2 (11:53→16:08)
[2024-05-28] MEDS: Insulin REGULAR-Human 100 UNITS/ML UNIT 6 UNITS SC (12:17)
[2024-05-28 13:03] LABS: INR 0.9 (0.9-1.1); PTT Activated 25.5 sec (23.6-32.8); Prothrombin Time 9.5 sec (9.1-11.1)
[2024-05-28] MEDS: Magnesium Oxide 400 MG TAB 800 MG PO (15:38)
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
[2024-05-28] MEDS: MORPHine 10 MG/ML VIAL 2 MG IVP (16:34)
[2024-05-28 16:35] VITALS: BP 110/82; PULSE 88; RESP 20; TEMP 35.9; O2SAT 99
== END 2024-05-28 16:37 | disposition short-term general hospital (02) ==
PROVIDERS: Emergency Provider Physician Assistant; PCP Family Medicine
DX: M79.662 Pain in left lower leg (principal); I74.3 Embolism and thrombosis of arteries of the lower extremities; E11.9 Type 2 diabetes mellitus without complications; E83.42 Hypomagnesemia
CPT/HCPCS: 36415; 36416; 75635; 80053; 82550; 82805; 82962; 93005; 96361; 96374; 99285; 83735; 85025; 85610; 85730; 93010; J1815; J2270; J3490

== ENCOUNTER 2024-07-14 14:19 | Emergency (ER) | payer OTHER, MEDICAID, SELFPAY ==
[2024-07-14 14:21] VITALS: BP 144/76; PULSE 109; RESP 12; TEMP 36.1; O2SAT 95
--- OUTSIDE RECORDS SUMMARY | 2024-07-14 14:34 | XMS_ITS | Clinical Summary ---
Author Organization Replaced By [facility] Address [facility] [place] [address] Care Team Providers Care Hair Baler Name Role Phone None Primary Care Provider Unavailabl e Allergies No known active allergies Medications Medication Sig Dispensed Refills Start Date End Date Status protriptyline (VIVACTIL) 5 mg tablet Take 10 mg by mouth every 8 hours. Active venlafaxine (EFFEXOR) 75 mg tablet Take 225 mg by mouth daily. Active Blood Sugar Diagnostic (FREESTYLE LITE STRIPS) test stripIndications: prediabetes s/p CABG by Other route 2 times daily. 1 box = 100 test strips Indications: prediabetes s/p CABG 100 each 1 01/08/2012 Active Lancets (FREESTYLE LANCETS) MiscIndications:p rediabetes now s/p CABG by Other route 2 times daily as needed. 1 box = 100 lancets Indications: prediabetes now s/p CABG 100 each 11 01/08/2012 Active acetaminophen (TYLENOL) 500 mg tablet Take 2 tablets by mouth every 6 hours as needed for Pain. 30 tablet 01/08/2012 Active aspirin 81 mg EC tablet Take 1 tablet by mouth daily. 30 tablet 11 08/22/2013 Active nitroGLYcerin (NITROSTAT) 0.[address] 1 tablet under the tongue daily as needed for Chest pain. 25 tablet 1 08/22/2013 Active methylphenidate (Ritalin) 20 mg tablet Take 20 mg by mouth 3 times daily. 05/02/2024 Active omeprazole 20 mg Tablet,Rapid Dissolve, DR Take by mouth Daily at Noon. 03/07/2024 Active losartan (Cozaar) 50 mg tablet Take 1 tablet by mouth daily. 90 tablet 3 06/03/2024 Active metoprolol succinate XL (Toprol-XL) 25 mg ER 24 hr tablet Take 1 tablet by mouth daily. 30 tablet 12 06/03/2024 Active atorvastatin (Lipitor) 80 mg tablet Take 1 tablet by mouth every evening. 90 tablet 3 06/02/2024 Active insulin lispro (humaLOG KwikPen) 100 unit/mL Insulin PenIndications:ty pe 2 diabetes mellitus Inject SQ 3 times daily before meals: 10 unit meal dose plus sliding scale 1:20>140 - see insulin chart for instructions Indications: type 2 diabetes mellitus 15 mL 06/02/2024 Active insulin needles, disposable, 32 gauge x 5/32 NeedleIndications :diabetes mellitus Inject 1 each subcutaneously 4 times daily. Indications: diabetes 400 each 06/02/2024 Active insulin glargine (Lantus) 100 unit/mL (3 mL) pen Inject 35 Units subcutaneously nightly. 3 mL 11 06/02/2024 Active metFORMIN (Glucophage) 500 mg tablet Take 2 tablets by mouth 2 times daily. 120 tablet 06/02/2024 Active dulaglutide (Trulicity) 1.5 mg/0.5 mL Pen InjectorIndicatio ns:type 2 diabetes mellitus Inject 0.5 mLs subcutaneously once a week. Indications: type 2 diabetes mellitus 2 mL 11 06/02/2024 Active empagliflozin (Jardiance) 25 mg tablet Take 1 tablet by mouth daily. 30 tablet 06/02/2024 Active aspirin EC 81 mg EC (DR) tablet Take 1 tablet by mouth daily. 30 tablet 3 06/03/2024 Active Active Problems Problem Noted Date Diagnosed Date Critical limb ischemia of left lower extremity 0 05/28/2024 Diabetes mellitus 08/22/2013 Overview (08/22/2013): HBAIC 10 this admission. Per Endocrine: Recommendations - Lantus 10 units at bedtime - Start glimepiride 2 mg with breakfast and dinner (patient to hold if not eating as it can cause hypoglycemia) - Start metformin 500 mg daily 48 hours post contrast (tomorrow), this dose can be advanced by his PCP - Patient to check blood sugar 2 times daily (fasting every day and 2 hrs post- meal, alternating breakfast, lunch and dinner) - Follow up with PCP or Dr Bird in [place] Obesity 08/22/2013 Overview (08/22/2013): Weight is 130.5 Kg on 08/22/13 NSTEMI (non-ST elevated myocardial infarction) 1 Overview (08/21/2013): , NSTEMI, [facility] 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 (SVG to PDA closed 08/27 13) 01/06/2012 Overview (08/22/2013): NSTEMI 12-29-2011 Cath - LAD, PDA and Distal Circ Disease CABG 01-04-2012 (MARTINEZ-LAD, SVG-PDA) Cardiac Cath 08/21/13: [patent MARTINEZ to LAD, occlusion of SVG to RPDA and occlusion of [place] RCA. LVEDP . PCI of mid and distal LCX (Xience) Echocardiogram 08/21/13: LVEF 65% HTN (hypertension) 12/29/2011 Hyperlipidemia 12/29/2011 Depression 12/29/2011 Narcolepsy 12/29/2011 Encounters Date Type Department Care Team Description 06/03/2024 Notes [place] [address] Christy Lim 05/30/2024 Travel 05/28/2024 5:40 PM EDT - 06/02/2024 6:45 PM EDT Hospital Encounter Surgical Unit Level [address] [place] [id number] Arthur Patel DO Columbo, Jesse A, MD Limb ischemia; Critical limb ischemia of left lower extremity Discharge Disposition: Home 05/28/2024 11:55 AM EDT Ancillary [place] [phone] Edin Marin MD 05/28/2024 Travel 05/28/2024 Telephone [place] [phone] Dolly Dan MD from Last 3 Months Immunizations Name Administration Dates Next Due Influenza PF, Split 08/22/2013 Family History Medical History Relation Comments Coronary Artery Disease Mother Coronary Artery Disease Paternal Aunt Coronary Artery Disease Paternal Grandfather Coronary Artery Disease Paternal Grandmother Coronary Artery Disease Paternal Uncle Relation Status Comments Father Alive Mother Alive Paternal Aunt Paternal Grandfather Paternal Grandmother Paternal Uncle Social History Tobacco Use Types Packs/Day Years Used Date Smoking Tobacco: Every Day Cigarettes 1 25 Started: 12/28/1986; Last attempted to quit: 12/28/2011 Alcohol Use Standard Drinks/Week Comments No 0 (1 standard drink = 0.6 oz pur e alcohol) [facility] Utilities Answer Date Recorded In the past 12 months has th e electric, gas, oil, or water company threatened to shut off services in your home? No 05/29/2024 Hunger Vital Sign Answer Date Recorded Within the past 12 months, y ou worried that your food would run out before you got the money to buy more. Never true 05/29/20 24 Within the past 12 months, t he food you bought just didn't last and you didn't have money to get more. Never true 05/29/2024 PRAPARE - Transportation Answer Date Re corded In the past 12 months, has l ack of transportation kept you from medical appointments or from getting medications? No 05/09 In the past 12 months, has l ack of transportation kept you from meetings, work, or from getting things needed for daily living? No 05/29/2024 Housing Stability Vital Sign Answer Carlos Enrique e Recorded In the last 12 months, was t here a time when you were not able to pay the mortgage or rent on time? No 05/29/2024 In the past 12 months, how m any times have you moved where you were living? 1 05/29/2024 At any time in the past 12 m [facility], were you homeless or living in a residential (including now)? No 05/29/2024 DH IPV Inpatient Questions Answer Date Recorded Does Anyone Try to Keep You From Having Contact with Others or Doing Things Outside Your Home? no 05/28/2024 Feels Threatened by Someone no 05/09 Feels Unsafe at Home or Work/School no 05/28/2024 Physical Signs of Abuse Present no 05/28/2024 Sex and Gender Information Value Date Recorded Sex Assigned at Not on file Gender Identity Not on file Sexual Orientation Not on file Last Filed Vital Signs Vital Sign Reading Time Taken Comments Blood Pressure 151/106 06/02/2024 11:23 AM EDT Pulse 83 06/02/2024 8:00 AM EDT Temperature 36.6 ??C (97.9 ??F) 06/02/2024 1 1:23 AM EDT Respiratory Rate 16 06/02/2024 11:2 3 AM EDT Oxygen Saturation 98% 06/02/2024 11: 23 AM EDT Inhaled Oxygen Concentration - - Weight 102.1 kg (225 lb 1.4 oz) 06/02/2024 5:42 AM EDT Height 177.8 cm (5' 10) 05/28/2024 5:43 PM EDT Body Mass Index 32.3 05/28/2024 5:43 PM EDT Plan of Treatment Health Maintenance Due Date Last Done Comments CT Colonography 1974 Colonoscopy 1974 Colorectal Cancer Screening 1974 FIT DNA 1974 FIT 1974 Sigmoidoscopy (10 year) with FIT yearly 1974 Sigmoidoscopy 1974 Pneumococcal Vaccine: At-Ris k 5-64yrs (1 of 2 - PCV) 1980 DM Opthalmology Exam 1984 Hepatitis C Screening 1992 Hepatitis B vaccine (0-59 yr s) (1) 1993 Tdap adult 1993 Tetanus vaccine 1993 DM Urine Microalbumin yearly 01/05/2013 01/06/2012 Covid-19 Vaccine (1 - 2022-2 4 season) 2023 Zoster vaccine (1 of 2) 2024 Influenza (Flu) vaccine (1 o f 1 - Influenza standard series) 07/09/2024 08/22/2013 DM Hemoglobin A1c 08/29/2024 05/29/2024, , 12/30/2011 DM Creatinine yearly 06/02/2025 06/02/2024, 06/01/2024, 05/31/2024, Additional history exists HIV screen Completed 12/30/2011 Lipid Screening Discontinued 05/31/2024, 08/08, 12/30/2011 Medical Devices Implanted Type Area Fun House Attendant Device Identifier Shelf Expiration Date Model / Serial / Lot Cable,Sternal ([id number]) - [id number] Implanted:Qty : 1 on 01/04/[address] [facility] IMPLANTS N/A: Chest [employer] - [id number] 09/03/2016 [id number] / [id number] / [id number] Cable,Sternal ,Single ([id number]) - [id number] Implanted:Qty : 1 on 01/04/[address] [facility] IMPLANTS N/A: Chest [employer] - [id number] 09/03/2016 [id number] / [id number] / [id number] Procedures Procedure Name Priority Date/Time Associated Diagnosis Comments POCT GLUCOSE Routine 06/02/2024 4:12 PM EDT POCT GLUCOSE Routine 06/02/2024 1:47 PM EDT POCT GLUCOSE Routine 06/02/2024 11:28 AM EDT SCAN DOC: TELEMETRY STRIPS 06/02/2024 10:01 AM EDT POCT GLUCOSE Routine 06/02/2024 8:59 AM EDT DIFFERENTIAL, AUTOMATED Routine 06/02/20 1:52 AM EDT HEMOGRAM Routine 06/02/2024 1:52 AM EDT HEPARIN (UNFRACTIONATED) LEVEL Timed 06/02/2024 1:52 AM EDT PHOSPHORUS Routine 06/02/2024 1:52 AM EDT MAGNESIUM Routine 06/02/2024 1:52 AM EDT BASIC METABOLIC PANEL Routine 06/02/2024 1:52 AM EDT CBC (WITH DIFF) Routine 06/02/2024 1:52 AM EDT SCAN DOC: TELEMETRY STRIPS 06/01/2024 8:14 PM EDT POCT GLUCOSE Routine 06/01/2024 7:45 PM EDT POCT GLUCOSE Routine 06/01/2024 4:45 PM EDT POCT GLUCOSE Routine 06/01/2024 2:32 PM EDT MRSA PCR SCREEN Routine 06/01/2024 1:42 PM EDT POCT GLUCOSE Routine 06/01/2024 11:49 AM EDT SCAN DOC: TELEMETRY STRIPS 06/01/2024 8:18 AM EDT POCT GLUCOSE Routine 06/01/2024 8:17 AM EDT POCT GLUCOSE Routine 06/01/2024 8:13 AM EDT POCT GLUCOSE Routine 06/01/2024 6:43 AM EDT DIFFERENTIAL, AUTOMATED Routine 06/01/20 6:12 AM EDT HEMOGRAM Routine 06/01/2024 6:12 AM EDT PHOSPHORUS Routine 06/01/2024 6:12 AM EDT MAGNESIUM Routine 06/01/2024 6:12 AM EDT BASIC METABOLIC PANEL Routine 06/01/2024 6:12 AM EDT CBC (WITH DIFF) Routine 06/01/2024 6:12 AM EDT POCT GLUCOSE Routine 05/31/2024 11:26 PM EDT POCT GLUCOSE Routine 05/31/2024 8:28 PM EDT SCAN DOC: TELEMETRY STRIPS 05/31/2024 8:20 PM EDT SCAN DOC: TELEMETRY STRIPS 05/31/2024 7:53 PM EDT POCT GLUCOSE Routine 05/31/2024 4:31 PM EDT POCT GLUCOSE Routine 05/31/2024 12:43 PM EDT SCAN DOC: TELEMETRY STRIPS 05/31/2024 8:22 AM EDT POCT GLUCOSE Routine 05/31/2024 8:19 AM EDT DUPLEX FOR DVT, LEG, UNILAT Routine 05/31/2024 7:35 AM EDT Critical limb ischemia of left lower extremity POCT GLUCOSE Routine 05/31/2024 6:53 AM EDT DIFFERENTIAL, AUTOMATED Routine 05/31/20 5:26 AM EDT HEMOGRAM Routine 05/31/2024 5:26 AM EDT HEPARIN (UNFRACTIONATED) LEVEL Timed 05/31/2024 5:26 AM EDT LDL CHOLESTEROL, DIRECT Routine 05/31/20 5:26 AM EDT HDL/CHOL PROFILE Routine 05/31/2024 5:26 AM EDT PHOSPHORUS Routine 05/31/2024 5:26 AM EDT MAGNESIUM Routine 05/31/2024 5:26 AM EDT BASIC METABOLIC PANEL Routine 05/31/2024 5:26 AM EDT CBC (WITH DIFF) Routine 05/31/2024 5:26 AM EDT RAPID DRUG SCREEN W/O CONFIRMATION, URINE STAT 05/31/2024 5:00 AM EDT URINALYSIS DIPSTICK STAT 05/31/2024 5 :00 AM EDT RAPID DRUG SCREEN, URINE STAT 05/31/2024 5:00 AM EDT SCAN DOC: TELEMETRY STRIPS 05/30/2024 9:21 PM EDT SCAN DOC: TELEMETRY STRIPS 05/30/2024 8:[address] LOWER EXTREMITY W CONTRAST LEFT Routine 05/30/2024 7:27 PM EDT POCT GLUCOSE Routine 05/30/2024 5:41 PM EDT PHOSPHORUS STAT 05/30/2024 4:47 PM EDT MAGNESIUM STAT 05/30/2024 4:47 PM EDT BASIC METABOLIC PANEL STAT 05/30/2024 4:47 PM EDT POCT GLUCOSE Routine 05/30/2024 12:42 PM EDT SCAN DOC: TELEMETRY STRIPS 05/30/2024 11:53 AM EDT NM PHARMACOLOGIC STRESS CT COMPONENT Routine 05/30/2024 11:20 AM EDT NUCLEAR PHARMACOLOGIC STRESS CARDIOLOGY Routine 05/30/2024 10:48 AM EDT NM PHARMACOLOGIC STRESS AND REST MYOCARDIAL PERFUSION Routine 05/30/2024 10:40 AM EDT SCAN DOC: TELEMETRY STRIPS 05/30/2024 9:04 AM EDT SCAN DOC: TELEMETRY STRIPS 05/30/2024 7:53 AM EDT POCT GLUCOSE Routine 05/30/2024 7:49 AM EDT POCT GLUCOSE Routine 05/30/2024 6:39 AM EDT DIFFERENTIAL, AUTOMATED Routine 05/30/20 12:39 AM EDT HEMOGRAM Routine 05/30/2024 12:39 AM EDT PHOSPHORUS Routine 05/30/2024 12:39 AM EDT MAGNESIUM Routine 05/30/2024 12:39 AM EDT BASIC METABOLIC PANEL Routine 05/30/2024 12:39 AM EDT CBC (WITH DIFF) Routine 05/30/2024 12:39 AM EDT HEPARIN (UNFRACTIONATED) LEVEL Timed 05/30/2024 12:39 AM EDT SCAN DOC: TELEMETRY STRIPS 05/29/2024 9:48 PM EDT SCAN DOC: TELEMETRY STRIPS 05/29/2024 8:36 PM EDT LEG MAP FOR BYPASS GRAFT, BILAT STAT 05/29/2024 8:01 PM EDT Limb ischemia ELEN, LEGS, MULTIPLE LEVELS STAT 05/29/2024 8:01 PM EDT Limb ischemia ISLET ANTIGEN 2 ANTIBODY Routine 05/29/2024 7:55 PM EDT TSH Routine 05/29/2024 7:55 PM EDT GAD65 ANTIBODY ASSAY Routine 05/29/2024 7:55 PM EDT HEPARIN (UNFRACTIONATED) LEVEL Timed 05/29/2024 5:35 PM EDT POCT GLUCOSE Routine 05/29/2024 4:12 PM EDT EKG 12-LEAD STAT 05/29/2024 2:51 PM EDT Limb ischemia ECHO COMPLETE W CONTRAST Routine 05/29/2024 1:29 PM EDT Limb ischemia POCT GLUCOSE Routine 05/29/2024 1:23 PM EDT HEPARIN (UNFRACTIONATED) LEVEL Timed 05/29/2024 9:52 AM EDT SCAN DOC: TELEMETRY STRIPS 05/29/2024 9:39 AM EDT POCT GLUCOSE Routine 05/29/2024 8:48 AM EDT SCAN DOC: TELEMETRY STRIPS 05/29/2024 7:39 AM EDT POCT GLUCOSE Routine 05/29/2024 4:00 AM EDT POCT GLUCOSE Routine 05/29/2024 2:47 AM EDT HEMOGLOBIN A1C Routine 05/29/2024 2:13 AM EDT DIFFERENTIAL, AUTOMATED Routine 05/29/20 2:13 AM EDT HEMOGRAM Routine 05/29/2024 2:13 AM EDT HEPARIN (UNFRACTIONATED) LEVEL Timed 05/29/2024 2:13 AM EDT PHOSPHORUS Routine 05/29/2024 2:13 AM EDT MAGNESIUM Routine 05/29/2024 2:13 AM EDT BASIC METABOLIC PANEL Routine 05/29/2024 2:13 AM EDT CBC (WITH DIFF) Routine 05/29/2024 2:13 AM EDT POCT GLUCOSE Routine 05/29/2024 12:25 AM EDT SCAN DOC: TELEMETRY STRIPS 05/28/2024 11:17 PM EDT SCAN DOC: TELEMETRY STRIPS 05/28/2024 11:10 PM EDT SCAN DOC: TELEMETRY STRIPS 05/28/2024 11:10 PM EDT EKG 12-LEAD STAT 05/28/2024 7:54 PM EDT TYPE AND SCREEN VALIDITY Routine 05/28/2024 6:20 PM EDT ABORH RECHECK STATUS Routine 05/28/2024 6:20 PM EDT TYPE AND SCREEN [place] STAT 05/28/2024 6:20 PM EDT GOLD TUBE HOLD STAT 05/28/2024 6:20 PM EDT DIFFERENTIAL, AUTOMATED STAT 05/28/20 6:20 PM EDT HEMOGRAM STAT 05/28/2024 6:20 PM EDT LACTATE, WHOLE BLOOD STAT 05/28/2024 6:20 PM EDT HC PARTIAL THROMBOPLASTIN TIME STAT 05/28/2024 6:20 PM EDT PROTHROMBIN TIME STAT 05/28/2024 6:20 PM EDT BASIC METABOLIC PANEL STAT 05/28/2024 6:20 PM EDT CBC (WITH DIFF) STAT 05/28/2024 6:20 PM EDT POCT GLUCOSE Routine 05/28/2024 5:46 PM EDT FILM LIBRARY STORAGE ONLY CT ABDOMEN AND PELVIS Routine 05/28/2024 11:50 AM EDT U ALBUMIN/CRE RATIO Timed 01/06/2012 9 :03 PM EST HIV SCREEN, 4TH GENERATION ([facility]/[facility]H) Routine 12/30/2011 10:18 AM EST from Last 3 Months or Most Recently Relevant to Health Maintenance Results * (ABNORMAL) POCT Glucose (06/02/2024 4:12 PM EDT) Only the most recent of28 resultswithin the time period is included. Glucose, POC 203(H) 65 - 199 mg/dL [facility] Comment: Supplemental ranges: <140 mg/dL before meals <180 mg/dL all other times of the day Blood 06/02/2024 4:12 PM EDT 06/02/2024 4:12 PM EDT Edin Marin MD POINT OF CARE TEST O RDERABLES [facility] [place] [address] * Scan Doc: Telemetry Strips (06/02/2024 10:01 AM EDT) Only the most recent of18 resultswithin the time period is included. Narrative 06/02/2024 10:01 AM EDT Ordered by an unspecified provider. Scanning Provider MEDIA MGR SCAN EXT O RDR/RSLT * Heparin (unfractionated) Level (06/02/2024 1:52 AM EDT) Only the most recent of6 resultswithin the time period is included. Pathologist [facility] UF Heparin 0.35 IU/mL [facility] Comment: Heparin (anti-Xa) levels should be determined in a plasma sample that has been drawn 6 hours after a dose change to approximate steady-state for continuous heparin infusions. Indication specific Heparin (anti-Xa) levels based on order set selection: Acute DVT or PE treatment: 0.3 ? 0.7 IU/mL Thrombosis Prevention (eg. atrial fibrillation, kaelyn-procedural bridging, mechanical valves): 0.3 ? 0.7 IU/mL Acute Coronary Syndrome: 0.3 ? 0.7 IU/mL Stroke Indications: 0.3 ? 0.5 IU/mL Ultra-low intensity (select indications in cardiac surgery): 0.1 ? 0.3 IU/mL Blood 06/02/2024 1:52 AM EDT 06/02/2024 2:06 AM EDT Narrative Resulting Agency Comment Spec In Lab Arthur Patel HEMATOLOGY ORDERABLE S [facility] [place] [address] * (ABNORMAL) Hemogram (06/02/2024 1:52 AM EDT) Only the most recent of6 resultswithin the time period is included. White Blood Cell 12.8(H) 4.0 - 9.5 x10(3)/mc L [facility] Red Blood Cell 4.56(L) 4.58 - 5.54 x10(6)/mc L [facility] Hemoglobin 13.7 13.7 - 16.5 g/dL [facility] Hematocrit 39.0(L) 40.5 - 48.5 % [facility] Mean Cell Volume 85.5 82.9 - 93.1 fL [facility] Mean Cell Hemoglobin 30.0 27.5 - 32.1 pg [facility] Mean Cell Hemoglobin Concentration 35.1 32.0 - 35.7 g/dL [facility] Platelet 283 145 - 357 x10(3)/mc L [facility] RDW Standard Deviation 35.7(L) 36.0 - 45.0 fL [facility] RDW coefficient of variation 11.6 11.4 - 13.8 % [facility] Mean Platelet Volume 10.2 7.6 - 12.9 fL [facility] NRBC% auto 0.0 % [facility] NRBC Absolute 0.000 0.000 - 0.000 x10(3)/mc L [facility] Blood 06/02/2024 1:52 AM EDT 06/02/2024 2:06 AM EDT Narrative Resulting Agency Comment Spec In Lab Lili Tapia MD HEMATOLOGY ORDERA BLES [facility] [place] [address] * (ABNORMAL) Differential, Automated (06/02/2024 1:52 AM EDT) Only the most recent of6 resultswithin the time period is included. Neutrophil % 75.2 % [facility] Neutrophil Absolute 9.62(H) 1.70 - 6.10 x10(3)/ L [facility] Lymph % 12.7 % [facility] Lymphocytes Abs 1.6 0.9 - 3.2 x10(3)/[facility] Monocyte % 7.8 % [facility] Monocyte Abs 1.0(H) 0.3 - 0.9 x10(3)/[facility] Eos % 1.1 % [facility] Eosinophils Abs 0.1 0.0 - 0.4 x10(3)/[facility] Basophil % 0.9 % [facility] Baso Absolute 0.1 0.0 - 0.1 x10(3)/[facility] Immature Gran % 2.30 % [facility] Comment: Immature granulocytes(IG's)percentage and absolute count will include metamyelocytes, myelocytes, and promyelocytes. Blood smears from CBCs yielding IG's will be scanned manually for concordance. If this scan disagrees with the automated IG or if promyelocytes are noted, a manual differential will be performed. Immature Gran Absolute 0.29(H) 0.00 - 0.04 x10(3)/ L [facility] Blood 06/02/2024 1:52 AM EDT 06/02/2024 2:06 AM EDT Narrative Resulting Agency Comment Spec In Lab Lili Tapia MD HEMATOLOGY ORDERA BLES Performing Organization Address [facility] Co de Phone Number [facility] [place] [address] * Phosphorus (06/02/2024 1:52 AM EDT) Only the most recent of6 resultswithin the time period is included. Phosphorus 3.3 2.5 - 4.5 mg/dL [facility] Blood 06/02/2024 1:52 AM EDT 06/02/2024 2:06 AM EDT Narrative Resulting Agency Comment Spec In Lab Edin Marin MD CHEMISTRY ORDERABLES Performing Organization Address [facility] Co de Phone Number [facility] [place] [address] * Magnesium (06/02/2024 1:52 AM EDT) Only the most recent of6 resultswithin the time period is included. Magnesium 0.81 0.69 - 1.07 mmol/L [facility] Blood 06/02/2024 1:52 AM EDT 06/02/2024 2:06 AM EDT Narrative Resulting Agency Comment Spec In Lab Edin Marin MD CHEMISTRY ORDERABLES Performing Organization Address [facility] Co de Phone Number [facility] [place] [address] * (ABNORMAL) Basic Metabolic Panel (non-fasting) (06/02/2024 1:52 AM EDT) Only the most recent of7 resultswithin the time period is included. Glucose 165 65 - 199 mg/dL [facility] Comment:Diabetes: >=200 mg/d L plus symptoms Blood Urea Nitrogen 7(L) 10 - 20 mg/dL [facility] Creatinine 0.52(L) 0.80 - 1.50 mg/dL [facility] Sodium 137 135 - 145 mmol/L [facility] Potassium 4.0 3.5 - 5.0 mmol/L [facility] Comment: Please note: ??Patients with WBC >100,000 may have falsely elevated Potassium levels. ??For accurate Potassium quantification in these patients send serum separator tube (gold top) for subsequent determinations. ??Contact the Clinical Chemistry Laboratory if there are any questions. Chloride 102 98 - 107 mmol/L [facility] Carbon Dioxide 23 22 - 31 mmol/L [facility] Anion Gap 12 5 - 15 mmol/L [facility] Calcium 9.5 8.5 - 10.5 mg/dL [facility] Est Glomerular Filtration Rate 123 >=60 mL/min/1. 73 m?? [facility] Comment: This patient's estimated GFR was calculated using the 2020 CKD-EPI equation. The estimated GFR can vary from the measured GFR by up to 30% in the absence of rapidly changing kidney function. Assessment of the estimated GFR is not appropriate when creatinine concentrations are rapidly changing. For clinical situations in which a more precise estimate of GFR is necessary, consider alternative methods of GFR estimation such as a 24-hour urine creatinine clearance. Assignment of CKD stage 1-5 for patients with an eGFR near the transition point between stages may be based on clinical assessment of muscle mass and symptoms in addition to eGFR. Blood 06/02/2024 1:52 AM EDT 06/02/2024 2:06 AM EDT Narrative Resulting Agency Comment Spec In Lab Edin Marin MD CHEMISTRY ORDERABLES [facility] [place] [address] * MRSA PCR Screen ([facility]) (06/01/2024 1:42 PM EDT) MRSA PCR Negative Negative [facility] MRSA (Interp) Methicillin-resist ant Staphylococcus aureus (MRSA) is NOT DETECTED The MRSA target DNA sequences (mec and SCC) were not detected within the acceptable ranges using the Xpert MRSA NxG on the GeneXpert Dx System ([employer]). This suggests the absence of MRSA in the patient specimen submitted for testing. This test is cleared by the U.S. Food and Drug Administration for clinical use and its performance characteristics have been verified by the [facility] at [facility]. This result does not rule out the presence of any other organisms. Rare false negative results may occur if MRSA is present at low concentrations with much higher concentrations of other organisms including MRSE or S. aureus with an empty SCC cassette. [facility] Comment: [VERIFIED DATE]06.02.24 Verified By:Gloria Jonas (Electronic Signature) Nasopharyngeal Swab 06/01/20 1:42 PM EDT 06/01/2024 3:11 PM EDT Comment:Specimen Type->Nasop haryngeal Swab Narrative Resulting Agency Comment Spec In Lab Edin Marin MD MOLECULAR ORDERABLES [facility] [facility] [place] [address] * Duplex for DVT, Leg, Unilat (05/31/2024 7:35 AM EDT) VB Text Report Department: Vascular Surgery Lab Patient: [id number] (GEOVANNA DIXON) CPT: 78866 Referring Physician: EDIN MARIN ?? Phone: Indications: Left lower extremity localized calf pain ? DVT Findings: LEFT: Patent common femoral vein and popliteal vein with spontaneous, respirophasic Doppler waveforms that respond normally to augmentation maneuvers. The common femoral vein, saphenofemoral junction, femoral vein through the thigh and popliteal vein are fully compressible. Posterior tibial and peroneal veins are patent but were not adequately visualized to exclude non-occlusive thrombus. Posterior tibial veins are compressible in the distal portion. Unable to visualize proximal and mid segments of posterior tibial veins and unable to visualize peroneal veins throughout the calf due to patient refusal/discomfort . Interpretation: LEFT: No evidence of lower extremity deep venous thrombosis. Comparison: ??No previous study in our vascular lab database for comparison. Electronically Signed by: DAGO VÁSQUEZ on 2024-06-02 09:55:39 AM VASCUBASE VB Text Report End of Report VASCU[facility] 05/31/2024 7:35 AM EDT Edin Marin MD VASCULAR ORDERABLES Performing Organization Address [facility] Co de Phone Number VASCUBASE * LDL Cholesterol, Direct (05/31/2024 5:26 AM EDT) LDL Cholesterol, Direct 86 mg/dL [facility] Comment: Desirable: ? <100 mg/dL Above Desirable: 100-129 mg/dL Borderline High: 130-159 mg/dL High: ?160-189 mg/dL Very High: ? >ur=266 mg/dL If not reaching LDL goals on maximally tolerated statin, consider exetimibe and/or a PCSK9 inhibitor: ?? Target for primary prevention: LDL<100 ?? Target for those with ASCVD or diabetes and 19-year risk >or=20%: LDL<70 ?? Target for those with very high risk ASCVD: LDL<55 (Very high risk being the presence of 2 or more of: recent acute coronary syndrome, past myocardial infarction, ischemic stroke, symptomatic perpheral artery disease). Blood 05/31/2024 5:26 AM EDT 05/31/2024 5:58 AM EDT Narrative Resulting Agency Comment Spec In Lab Edin Marin MD CHEMISTRY ORDERABLES Performing Organization Address [facility] Co de Phone Number [facility] [place] [address] * HDL/Cholesterol Profile (05/31/2024 5:26 AM EDT) Cholesterol, Total 156 mg/dL [facility] Comment: Desirable: ? <200 mg/dL Borderline High: 200-239 mg/dL Higher: ?>vv=646 mg/dL HDL Cholesterol 33 mg/dL [facility] Comment: Females: High Risk: <50 mg/dL Males: High Risk: <40 mg/dL Lipid Interpretation See Note [facility] Comment: It is important to review the results of your lipid panel with your health care provider. You can compare your lipid results to the ranges below and whether they are in the desirable range. These ranges are only meant to be used for people without known cardiac disease, history of stroke, or peripheral vascular disease (blockages in the leg arteries or diabetes). If ??you have one of these conditions, your desirable LDL-C (bad cholesterol) will likely be even lower. ACC/AHA Guidelines (most recently Johann et al. [facility] 08/11/22): For individuals with atherosclerotic cardiovascular disease (ASCVD)or LDL >dm=458 mg/dL, use a high-intensity statin (40-80 mg atorvastatin or 20-40 mg rosuvastatin with goal >or=50% LDL reduction) For individuals with diabetes, age 40-75 without ASCVD, moderate-intensity statin (goal 30-49% LDL reduction); consider high intensity statin for those with increased risk. For adults without diabetes or ASCVD, aged 40-75 with LDL 70-189 mg/dL, estimate 10 year ASCVD risk with smartphrase .ASCVDRISK or Dynamed Decisions. If 10 year risk is 7.5%-19.9% (intermediate risk), consider moderate intensity statin based on risk enhancers and patient preference. Consider coronary artery calcium test (CT) if there is concern regarding the benefit of a statin. If ten year risk is >or=20%, initiate high-intensity statin. Evaluate for secondary causes of triglycerides >500 mg/dL or LDL >190 mg/dL. Lifestyle modification is a critical component of ASCVD risk reduction. If not reaching LDL goals on maximally tolerated statin, consider ezetimibe and/or a PCSK9 inhibitor: Target for primary prevention: LDL<100 Target for those with ASCVD or diabetes and 10-year risk >or=20%: LDL<70 Target for those with very high risk ASCVD: LDL<55 (Very high risk being the presence of 2 or more of: recent acute coronary syndrome, past myocardial infarction, ischemic stroke, symptomatic peripheral artery disease) Blood 05/31/2024 5:26 AM EDT 05/31/2024 5:58 AM EDT Narrative Resulting Agency Comment Spec In Lab Edin Marin MD CHEMISTRY ORDERABLES Performing Organization Address [facility] Co de Phone Number [facility] [place] [address] * Rapid Drug Screen, Urine (IVAN Request) (05/31/2024 5:00 AM EDT) IVAN Conf Requested No [facility] IVAN Requested See Comment [facility] Comment:Refer to Rapid Drug Screen w/o Confirmation, Urine for results. Urine 05/31/2024 5:00 AM EDT 05/31/2024 5:31 AM EDT Narrative Resulting Agency Comment Spec In Lab Edin Marin MD URINE ORDERABLES Performing Organization Address [facility] de Phone Number [facility] [place] [address] * (ABNORMAL) Rapid Drug Screen w/o Confirmation, Urine (05/31/2024 5:00 AM EDT) Barbiturates Screen, Urine None Detected None Detected [facility] Comment: The barbiturate screen detects barbiturates at concentrations >200 ng/mL. Note: Not all barbiturates cross-react equally with antibody used in this screen. A ? Presumptive Positive? result indicates that the screening result was positive but has not yet been confirmed by a highly-specific method. As with any screen, occasional false positive results from cross-reacting substances may occur. Not for Medico-Legal Purposes. Benzodiazepines Screen, Urine None Detected None Detected [facility] Comment: The benzodiazepines screen detects benzodiazepines at concentrations >100 ng/mL. Not all benzodiazepines cross-react equally with antibody used in this screen. Due to the low dosage of clonazepam, false negatives may be obtained due to low concentration of clonazepam metabolites. A ? Presumptive Positive? result indicates that the screening result was positive but has not yet been confirmed by a highly-specific method. As with any screen, occasional false positive results from cross-reacting substances may occur. Not for Medico-Legal Purposes. Cocaine Screen, Urine Presumptive Pos(A) None Detected [facility] Comment: The cocaine metabolites screen detects benzoylecgonine (Cocaine Metabolite) at concentrations >150 ng/mL. A ? Presumptive Positive? result indicates that the screening result was positive but has not yet been confirmed by a highly-specific method. As with any screen, occasional false positive results from cross-reacting substances may occur. Not for Medico-Legal Purposes. Methadone Metabolites Screen, Urine None Detected None Detected [facility] Comment: The methadone metabolite screen detects EDDP (major methadone metabolite) at concentrations >100 ng/mL. A ? Presumptive Positive? result indicates that the screening result was positive but has not yet been confirmed by a highly-specific method. As with any screen, occasional false positive results from cross-reacting substances may occur. Not for Medico-Legal Purposes. Opiate Screen, Urine None Detected None Detected [facility] Comment: The opiates screen detects opiates at concentrations >300 ng/mL. Please note that oxycodone, oxymorphone, fentanyl, tramadol, and other synthetic opioids are not detected by the opiate screen. A ? Presumptive Positive? result indicates that the screening result was positive but has not yet been confirmed by a highly-specific method. As with any screen, occasional false positive results from cross-reacting substances may occur. Not for Medico-Legal Purposes. Cannabinoid Screen, Urine None Detected None Detected [facility] Comment: The marijuana metabolites screen detects the THC metabolite (91-cam-2-carboxy-delta 9-THC) at concentrations >20 ng/mL. A ? Presumptive Positive? result indicates that the screening result was positive but has not yet been confirmed by a highly-specific method. As with any screen, occasional false positive results from cross-reacting substances may occur. Not for Medico-Legal Purposes. Oxycodone Screen, Urine Presumptive Pos(A) None Detected [facility] Comment: The oxycodone screen detects oxycodone and oxymorphone at concentrations >100 ng/mL. A ? Presumptive Positive? result indicates that the screening result was positive but has not yet been confirmed by a highly-specific method. As with any screen, occasional false positive results from cross-reacting substances may occur. Not for Medico-Legal Purposes. Buprenorphine Screen, Urine None Detected None Detected [facility] Comment: The buprenorphine screen detects buprenorphine at concentrations >=5 ng/mL. A ? Presumptive Positive? result indicates that the screening result was positive but has not yet been confirmed by a highly-specific method. As with any screen, occasional false positive results from cross-reacting substances may occur. Not for Medico-Legal Purposes. This test has not been cleared by the [place] FDA. Performance characteristics of this test were determined by [facility] in accordance with CLIA requirements. This laboratory is qualified under CLIA to perform high-complexity testing. Fentanyl Screen, Urine None Detected None Detected [facility] Comment: The fentanyl screen detects fentanyl at concentrations >=2 ng/mL. A ? Presumptive Positive? result indicates that the screening result was positive but has not yet been confirmed by a highly-specific method. As with any screen, occasional false positive results from cross-reacting substances may occur. Not for Medico-Legal Purposes. This test has not been cleared by the [place] FDA. Performance characteristics of this test were determined by [facility] in accordance with CLIA requirements. This laboratory is qualified under CLIA to perform high-complexity testing. Tricyclics Screen, Urine Presumptive Pos(A) None Detected [facility] Comment: The tricyclics screen detects tricyclic antidepressants at concentrations >=150 ng/mL. Not all tricyclics cross-react equally with the antibody used in this screen. A ? Presumptive Positive? result indicates that the screening result was positive but has not yet been confirmed by a highly-specific method. As with any screen, occasional false positive results from cross-reacting substances may occur. Not for Medico-Legal Purposes. This test has not been cleared by the [place] FDA. Performance characteristics of this test were determined by [facility] in accordance with CLIA requirements. This laboratory is qualified under CLIA to perform high-complexity testing. Ethanol Screen, Urine None Detected None Detected [facility] Comment:This urine ethanol a ssay detects ethanol at concentrations >/= 100 mg/L. Amphetamines Screen, Urine None Detected None Detected [facility] Comment: The amphetamine screen detects d-amphetamine and d-methamphetamine at concentrations >300 ng/mL. A ? Presumptive Positive? result indicates that the screening result was positive but has not yet been confirmed by a highly-specific method. As with any screen, occasional false positive results from cross-reacting substances may occur. Not for Medico-Legal Purposes. Creatinine Specimen Validity Test, Urine 58 >=20 mg/dL [facility] Chromate Specimen Validity Test, Urine <2.0 <=49.9 mg/L [facility] Nitrite Specimen Validity Test, Urine <50 <=499 mg/L [facility] Oxidant Specimen Validity Test, Urine 10 <=199 mg/L [facility] pH Specimen Validity Test, Urine 6.8 3.0 - 10.9 [facility] Adulterants Screen, Urine None Detected None Detected [facility] Comment:No adulteration of t his urine sample was detected. Urine 05/31/2024 5:00 AM EDT 05/31/2024 5:31 AM EDT Narrative Resulting Agency Comment Spec In Lab Rubio Grimaldo MD CHEMISTRY ORDERABL ES [facility] [place] [address] * (ABNORMAL) Urinalysis without microscopic (05/31/2024 5:00 AM EDT) Glucose, Urine Dipstick >=1000(Criti masoud) Negative mg/dL [facility] Comment: Urinalysis result NOT critical without a combination of Glucose greater than or equal to 500 mg/dL AND Ketones greater than or equal to 80 mg/dL Protein, Urine Dipstick Negative Negative mg/dL [facility] Bilirubin, Urine Dipstick Negative Negative mg/dL [facility] Comment: Clinical correlation required for positive Urine Bilirubin results as false positive may occur with some drugs and drug related products. If a false positive is suspected a serum total bilirubin should be considered if clinically indicated. Urobilinogen, Urine Dipstick Normal Normal mg/dL [facility] pH, Urn (dipstick) 7.0 5.0 - 8.0 [facility] Blood, Urine Dipstick Negative Negative mg/dL [facility] Ketone, Urine Dipstick Negative Negative mg/dL [facility] Nitrite, Urine Dipstick Negative Negative [facility] Leukocytes, Urine Dipstick Negative Negative [facility] Appearance, Urine Dipstick Clear Clear [facility] Specific [place] Urine Automated >=1.030(A) 1.005 - 1.030 [facility] Color, Urine Dipstick Yellow Yellow [facility] Urine 05/31/2024 5:00 AM EDT 05/31/2024 5:31 AM EDT Narrative Resulting Agency Comment Spec In Lab Edin Marin MD URINE ORDERABLES Performing Organization Address City/State/[facility] Co de Phone Number [facility] [place] [phone] * CT Lower Extremity w Contrast Left (05/30/2024 7:27 PM EDT) WORKSTATION ID [id number] RAD Anatomical Region Laterality Modality Hip, Leg, Knee, Thigh, Ankle, Foot Left Computed Tomography Impressions 05/31/2024 3:33 PM EDT 1. 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 2. ??Moderate stenosis of the distal superficial femoral artery and mild stenosis of the tibio-peroneal trunk. 3. ??No opacification of the venous vascular structures. Exam nondiagnostic for evaluation for DVT. 4. ??Distal lower extremity edema without focal collection or abscess. 5. ??No CT evidence of osteomyelitis. I have personally reviewed the image(s) and the resident's interpretation and agree with the findings, Ignacia Chi MD at 05/31/2024 3:33 PM Thank you for letting us participate in the care of this patient. ??If you are a health care provider and have any questions regarding this report, please contact the number below. ??For patients who have questions please contact the health hemodialysis patient care specialist that requested your imaging first. ? Narrative 05/31/2024 3:33 PM EDT EXAMINATION: CT LOWER EXTREMITY W CONTRAST LEFT CLINICAL HISTORY: Tender, localized erythematous area of swelling on his L medial calf - c/f abscess vs. DVT, PMHx PAD TECHNIQUE: CT of the left lower extremity from the distal femur to the toes after intravenous administration of 110 mL Omnipaque 350 with sagittal and coronal reconstructions. COMPARISON: None available. FINDINGS: LEFT LOWER EXTREMITY Arteries: Superficial femoral artery: Moderate stenosis of the distal superficial femoral artery with calcified and noncalcified plaque (series 3, image 33) Popliteal artery: Occlusion of the popliteal artery with calcified and noncalcified plaque (series 3, image 210) with distal reconstitution from collaterals (series 3, image 234) Anterior tibial artery: No stenosis. Tibio-peroneal trunk: Mild stenosis of the tibioperitoneal trunk with calcified and noncalcified plaque.. Posterior tibial artery: No stenosis. Peroneal artery: No stenosis. Dorsalis pedis: Nonopacified. Plantar arteries: Nonopacified. Veins: No opacification of the venous structures. Nondiagnostic for evaluation for DVT. Nonvascular structures: Subcutaneous edema of the distal lower extremity. No focal collection or abscess. Metallic foreign body adjacent to head of the second metatarsal. No fracture or dislocation. No osseous erosion. Left knee joint is congruent with small amount of subchondral sclerosis and small marginal osteophytes. No knee joint effusion. Ankle joint is congruent with normal spacing. No tibiotalar effusion. Bone island in the talar dome. ?? Procedure Note Ignacia Chi MD - 07/24/2024 EXAMINATION: CT LOWER EXTREMITY W CONTRAST LEFT CLINICAL HISTORY: Tender, localized erythematous area of swelling on hisL medial calf - c/f abscess vs. DVT, PMHx PAD TECHNIQUE: CT of the left lower extremity from the distal femur to the toes after intravenous administration of 110 mL Omnipaque 350 with sagittal andcoronal reconstructions. COMPARISON: None available. FINDINGS: LEFT LOWER EXTREMITY Arteries: Superficial femoral artery: Moderate stenosis of the distal superficialfemoral artery with calcified and noncalcified plaque (series 3, image 33) Popliteal artery: Occlusion of the popliteal artery with calcified and noncalcified plaque (series 3, image 210) with distal reconstitutionfrom collaterals (series 3, image 234) Anterior tibial artery: No stenosis. Tibio-peroneal trunk: Mild stenosis of the tibioperitoneal trunk withcalcified and noncalcified plaque.. Posterior tibial artery: No stenosis. Peroneal artery: No stenosis. Dorsalis pedis: Nonopacified. Plantar arteries: Nonopacified. Veins: No opacification of the venous structures. Nondiagnostic for evaluationfor DVT. Nonvascular structures: Subcutaneous edema of the distal lower extremity. No focal collection or abscess. Metallic foreign body adjacent to head of the secondmetatarsal. No fracture or dislocation. No osseous erosion. Left knee joint iscongruent with small amount of subchondral sclerosis and small marginal osteophytes.No knee joint effusion. Ankle joint is congruent with normal spacing. Notibiotalar effusion. Bone island in the talar dome. IMPRESSION 1. 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 2. Moderate stenosis of the distal superficial femoral artery and mildstenosis of the tibio-peroneal trunk. 3. No opacification of the venous vascular structures. Exam nondiagnosticfor evaluation for DVT. 4. Distal lower extremity edema without focal collection or abscess. 5. No CT evidence of osteomyelitis. I have personally reviewed the image(s) and the resident's interpretationand agree with the findings, Ignacia Chi MD at 05/31/2024 3:33 PM Thank you for letting us participate in the care of this patient. If youare a health care provider and have any questions regarding this report,please contact the number below. For patients who have questions please contactthe health hemodialysis patient care specialist that requested your imaging first. Edin Marin MD IMG CT ORDERABLES * NM Pharmacologic Stress CT Component (05/30/2024 11:20 AM EDT) WORKSTATION ID [id number] [facility] Anatomical Region Laterality Modality Nuclear Medicine Narrative 05/30/2024 2:34 PM EDT EXAMINATION: NM PHARMACOLOGIC STRESS CT COMPONENT CLINICAL HISTORY: Study performed for attenuation correction of the myocardial perfusion scan. TECHNIQUE: A limited field of view, non-contrast, non-breath hold, low dose CT scan of the region surrounding the myocardium was performed for the purpose of attenuation correction of the myocardial perfusion scan. COMPARISON: None ANCILLARY CT FINDINGS: Status post prior median sternotomy. Severe diffuse coronary artery calcific changes. Status post coronary artery bypass grafting. Mild diffuse calcific changes of the thoracic aorta. Mild bibasilar atelectasis. No significant pulmonary parenchymal masses or consolidation. Thank you for letting us participate in the care of this patient. ??If you are a health care provider and have any questions regarding this report, please contact the number below. ??For patients who have questions please contact the health hemodialysis patient care specialist that requested your imaging first. ? Procedure Note Angel Oliva MD - 05/30/2024 EXAMINATION: NM PHARMACOLOGIC STRESS CT COMPONENT CLINICAL HISTORY: Study performed for attenuation correction of themyocardial perfusion scan. TECHNIQUE: A limited field of view, non-contrast, non-breath hold, lowdose CT scan of the region surrounding the myocardium was performed for thepurpose of attenuation correction of the myocardial perfusion scan. COMPARISON: None ANCILLARY CT FINDINGS: Status post prior median sternotomy. Severe diffuse coronary arterycalcific changes. Status post coronary artery bypass grafting. Mild diffusecalcific changes of the thoracic aorta. Mild bibasilar atelectasis. No significant pulmonary parenchymal massesor consolidation. Thank you for letting us participate in the care of this patient. If youare a health care provider and have any questions regarding this report,please contact the number below. For patients who have questions please contactthe health hemodialysis patient care specialist that requested your imaging first. Edin Marin MD IMG NM ORDERABLES * Nuclear Pharmacologic Stress Cardiology (05/30/2024 10:48 AM EDT) Anatomical Region Laterality Modality Other Edin Marin MD CARDIAC SERVICES ORD ERABLES * NM Pharmacologic Stress and Rest Myocardial Perfusion (05/30/2024 10:40 AM EDT) WORKSTATION ID [id number] [facility] Anatomical Region Laterality Modality Nuclear Medicine Impressions 05/30/2024 2:33 PM EDT 1. ??There is a small sized, fixed perfusion defect involving the apical anterior, true apex, and apical inferior segments. 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 ??Summed rest score = 4, summed stress score = 4, summed difference score = 0. 2. ??Left ventricular systolic function is mildly reduced (48%). I have personally reviewed the image(s) and the resident's interpretation and agree with the findings, Angel Oliva MD at 05/30/2024 2:33 PM Thank you for letting us participate in the care of this patient. ??If you are a health care provider and have any questions regarding this report, please contact the number below. ??For patients who have questions please contact the health hemodialysis patient care specialist that requested your imaging first. ? Narrative 05/30/2024 2:33 PM EDT EXAMINATION: NM PHARMACOLOGIC STRESS AND REST MYOCARDIAL PERFUSION CLINICAL HISTORY: Known 2V CABG, occluded SVG-RPDA expecting inferior wall scar, cannot perform 4 METS prior to vasc surg TECHNIQUE: During rest, 10 mCi of technetium-99m sestamibi was administered intravenously. Approximately 20 minutes later, SPECT images of the heart were obtained with reconstruction in the short, vertical long and horizontal long axis. The patient then received Regadenoson intravenously at a dose of 0.4 mg. 20 seconds later, 30 mCi of technetium-99m sestamibi was administered intravenously. Images of the heart were then again obtained with SPECT reconstruction. A low-dose CT scan was acquired for the purpose of attenuation correction COMPARISON: None FINDINGS: There is a small in size, moderate in intensity fixed defect involving the apical anterior, true apex, and apical inferior segments. No dilation of the LV cavity with stress (TID 1.08). Functional analysis: Myocardial function: There is mildly reduced LV systolic function. Left ventricular ejection fraction: 48 % (normal greater than than 50%). ANCILLARY CT FINDINGS: Status post prior median sternotomy. Severe diffuse coronary artery calcific changes. Status post coronary artery bypass grafting. Mild diffuse calcific changes of the thoracic aorta. Mild bibasilar atelectasis. No significant pulmonary parenchymal masses or consolidation. Procedure Note Angel Oliva MD - 05/30/2024 EXAMINATION: NM PHARMACOLOGIC STRESS AND REST MYOCARDIAL PERFUSION CLINICAL HISTORY: Known 2V CABG, occluded SVG-RPDA expecting inferior wallscar, cannot perform 4 METS prior to vasc surg TECHNIQUE: During rest, 10 mCi of technetium-99m sestamibi wasadministered intravenously. Approximately 20 minutes later, SPECT images of the heartwere obtained with reconstruction in the short, vertical long and horizontallong axis. The patient then received Regadenoson intravenously at a dose of 0.4 mg.20 seconds later, 30 mCi of technetium-99m sestamibi was administered intravenously. Images of the heart were then again obtained with SPECT reconstruction. A low-dose CT scan was acquired for the purpose of attenuationcorrection COMPARISON: None FINDINGS: There is a small in size, moderate in intensity fixed defect involvingthe apical anterior, true apex, and apical inferior segments. No dilation of the LV cavity with stress (TID 1.08). Functional analysis: Myocardial function: There is mildly reduced LV systolic function. Left ventricular ejection fraction: 48 % (normal greater than than 50%). ANCILLARY CT FINDINGS: Status post prior median sternotomy. Severe diffuse coronary arterycalcific changes. Status post coronary artery bypass grafting. Mild diffusecalcific changes of the thoracic aorta. Mild bibasilar atelectasis. No significant pulmonary parenchymal massesor consolidation. IMPRESSION 1. There is a small sized, fixed perfusion defect involving the apical anterior, true apex, and apical inferior segments. Findings aresuggestive of prior apical infarct without any significant kaelyn-infarct ischemia.Summed rest score = 4, summed stress score = 4, summed difference score = 0. 2. Left ventricular systolic function is mildly reduced (48%). I have personally reviewed the image(s) and the resident's interpretationand agree with the findings, Angel Oliva MD at 05/30/2024 2:33 PM Thank you for letting us participate in the care of this patient. If youare a health care provider and have any questions regarding this report,please contact the number below. For patients who have questions please contactthe health hemodialysis patient care specialist that requested your imaging first. Edin Marin MD [facility] ORDERABLES * Lower extremity vein map, bilat (05/29/2024 8:01 PM EDT) VB Text Report Department: Vascular Surgery Lab Patient: [id number] (GEOVANNA DIXON) CPT: 09719 Referring Physician: EDIN MARIN ?? Phone: Indications: ??PAD pre-op bypass. Patient Positioning: ??Reverse Trendelenburg Findings: Right ?Diameter (mm) ??Depth (mm) ??Thrombus? GSV, Near SFJ ?2.3 ?12.4 ? GSV, Proximal Thigh ?1.4 ?12.5 ? GSV, Mid Thigh ?Not Identified ? GSV, Distal Thigh ? Not Identified ? GSV, ??Knee ?NON-OCCLUSIVE THROMBUS ?? GSV Prox Calf ? NON-OCCLUSIVE THROMBUS ?? GSV, Mid Calf ? NON-OCCLUSIVE THROMBUS ?? GSV, Distal Calf ?NON-OCCLUSIVE THROMBUS ?? Left ? Diameter (mm) ??Depth (mm) ?? GSV, Near SFJ ?7.9 ?33.6 ?? GSV, Proximal Thigh ?7.0 ?14.8 ?? GSV, Mid Thigh ? 2.4 ?10.7 ?? GSV, Distal Thigh ?3.1 ? 3.5 ?? GSV, ??Knee ? 2.3 ? 9.3 ?? GSV Prox Calf ?1.8 ? 4.3 ?? GSV, Mid Calf ?2.0 ? 3.1 ?? GSV, Distal Calf ? 1.2 ? 4.8 ?? Interpretation: Right: The great saphenous vein in the thigh is absent. 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 Left: Patent great saphenous vein with branches throughout the thigh, no evidence of sclerosis or thrombus. Comparison: ??No previous study in our vascular lab database for comparison. Electronically Signed by: ANABEL FINNEY on 2024-05-29 12:16:20 PM VASCUBASE VB Text Report End of Report VASCUBASE 05/29/2024 8:01 PM EDT Edin Marin MD VASCULAR ORDERABLES VASCUBASE * ELEN, legs, multiple levels (05/29/2024 8:01 PM EDT) VB Text Report Department: Vascular Surgery Lab Patient: [id number] (GEOVANNA DIXON) CPT: 10193 Referring Physician: EDIN MARIN ?? Phone: Indications: Left lower extremity acute popliteal arterial thrombus. ? Perfusion. Diabetes mellitus: Yes Findings: Right ?Pressure (mm Hg) ?? ELEN ??Waveform ? TBI ?? Brachial Artery ?125 ? Common Femoral Artery ?Triphasic ? Popliteal Artery ? Triphasic ? Dorsalis Pedis (Ankle) Artery ?138 ? 1.10 ??Bi-Triphasic ? Posterior Tibial (Ankle) Artery ??146 ? 1.17 ??Triphasic ? Great Toe ?110 ? 0.88 ?? Left ? Pressure (mm Hg) ??Waveform ?TBI ?? Common Femoral Artery ?Triphasic ? Popliteal Artery ? Suspect Occlusion ? Dorsalis Pedis (Ankle) Artery ?Monophasic ? Posterior Tibial (Ankle) Artery ?Monophasic ? Great Toe ?30 ? 0.24 ?? Interpretation: RIGHT: No significant lower extremity arterial occlusive disease. LEFT: Severe ischemic lower extremity arterial occlusive disease. This is based on waveforms and TBI data only. Patient could not tolerate cuff pressure so ELEN information could not be obtained. On duplex imaging there is a suspected occlusion in the popliteal artery with collateral flow noted in the more distal popliteal artery. Note: Left brachial pressure not obtained due to a left upper extremity peripheral IV placed superiorly on the upper arm. Comparison: ??No previous study in our vascular lab database for comparison. Electronically Signed by: DAGO VÁSQUEZ on 2024-05-30 05:06:31 PM VASCUBASE VB Text Report End of Report VASCUBASE 05/29/2024 8:01 PM EDT Edin Marin MD VASCULAR ORDERABLES VASCUBASE * Islet Antigen 2 Antibody (05/29/2024 7:55 PM EDT) Pathologist [facility] Ia-2 Ab (MARCH) 0.00 <=0.02 nmol/L [facility] Comment: ADDITIONAL INFORMATION This test was developed and its performance characteristics determined by [facility] in a manner consistent with CLIA requirements. This test has not been cleared or approved by the U.S. Food and Drug Administration. Test Performed by: [facility] - [address] [address] Pearler: Varun Steen Ph.D.; CLIA# [id number] Blood 05/29/2024 7:55 PM EDT 05/30/2024 8:43 AM EDT Narrative Resulting Agency Comment Spec In Lab Edin Marin MD CHEMISTRY ORDERABLES Performing Organization Address City/State/[facility] Co de Phone Number [facility] [place] [address] * GAD65 Antibody Assay (05/29/2024 7:55 PM EDT) [facility] Gad65 Ab (MARCH) 0.00 <=0.02 nmol/L [facility] Comment: ADDITIONAL INFORMATION This test was developed and its performance characteristics determined by [facility] in a manner consistent with CLIA requirements. This test has not been cleared or approved by the U.S. Food and Drug Administration. Test Performed by: [facility] - [address] [address] Pearler: Varun Steen Ph.D.; CLIA# [id number] Blood 05/29/2024 7:55 PM EDT 05/30/2024 8:43 AM EDT Narrative Resulting Agency Comment Spec In Lab Edin Marin MD LAB SEND OUT ORDERAB LES Performing Organization Address [facility] Co de Phone Number [facility] [place] [address] * TSH (05/29/2024 7:55 PM EDT) Thyroid Stimulating Hormone 1.03 0.27 - 4.20 mcIU/mL [facility] Comment: Reference Interval (mcIU/mL): Females: ??First Trimester: 0.23-3.88 ??Second Trimester: 0.22-3.90 ??Third Trimester: 0.44-4.66 Blood 05/29/2024 7:55 PM EDT 05/29/2024 8:00 PM EDT Narrative Resulting Agency Comment Spec In Lab Edin Marin MD CHEMISTRY ORDERABLES Performing Organization Address [facility] Co de Phone Number [facility] [place] [address] * EKG 12 Lead (05/29/2024 2:51 PM EDT) Only the most recent of2 resultswithin the time period is included. Ventricular rate 85 BPM MUSE SYSTEM Atrial Rate 85 BPM MUSE SYSTEM P-R Interval 156 ms MUSE SYSTEM QRS Duration 114 ms MUSE SYSTEM Q-T Interval 384 ms MUSE SYSTEM QTC Calculated (Bezet) 456 ms MUSE SYSTEM Calculated P Banning 16 degrees MUSE SYSTEM Calculated R Banning 21 degrees MUSE SYSTEM Calculated T Banning 15 degrees MUSE SYSTEM INTERPRETATION Normal sinus rhythm Normal ECG When compared with ECG of 28-MAY-2024 19:54, Premature ventricular complexes are no longer Present Confirmed by MD Dian, Asad ([id number]) on 05/30/2024 1:27:54 PM MUSE SYSTEM 05/29/2024 2:51 PM EDT 05/30/2024 1:27 PM EDT Vibha Benson APRN ECG ORDERABLES Performing Organization Address [facility] Co de Phone Number MUSE SYSTEM * ECHO COMPLETE W CONTRAST (05/29/2024 1:29 PM EDT) Anatomical Region Laterality Modality Cardiac Other 05/29/2024 10:3 3 AM EDT Narrative 05/29/2024 2:27 PM EDT [address] [place] [address] ? Echocardiogram Report Name: GEOVANNA DIXON JR. ? Study Date: 05/29/2024 10:33 AM ? Patient Location: [id number] A : 1975 ? Height: 178 cm ? Account: [id number] Age: 49 yrs ? Weight: 102 kg Gender: Male ?BSA: 2.2 m2 Ordering Physician: EDIN MARIN Referring Physician: KAM SKINNER Performed By: Melina Marinelli RDCS Reason For Study: Limb ischemia Exam Location: [facility]. Interpretation Summary -Left ventricular systolic function is mildly reduced. The left ventricular ejection fraction is 47% by Stacy's biplane. There is akinesis of the inferior wall. -The right ventricle is of normal size. Right ventricular systolic function is normal. -No significant valvular disease noted on this study. -Compared with the previous echo performed on 08/21/23, the ejection fraction has decreased. Procedure Complete-[id number]. An agitated saline bubble contrast study was performed. Image enhancement Optison was used for left ventricular opacification. Satisfactory quality. Left Ventricle Left ventricle is mildly dilated. Wall thickness is normal. Left ventricular systolic function is mildly reduced. The left ventricular ejection fraction is 47% by Stacy's biplane. There are segmental wall motion abnormalities. There is akinesis of the inferior wall. Right Ventricle The right ventricle is of normal size. Right ventricular systolic function is normal. Left Atrium The left atrium is normal. There is no evidence for a patent foramen ovale visualized with agitated saline. Right Atrium The right atrium is probably normal in size. Aortic Valve The aortic valve is not well visualized. There is no aortic stenosis. There is no aortic regurgitation. Mitral Valve The mitral valve is structurally and functionally normal. There is no mitral stenosis. There is mild mitral regurgitation. Tricuspid Valve The tricuspid valve is structurally and functionally normal. There is no tricuspid stenosis. There is no tricuspid regurgitation. Pulmonic Valve The pulmonic valve is not well visualized. Great Arteries The aortic root is of normal size. No abnormalities are identified. The maximum diameter of the proximal ascending aorta is 3.4 cm. Venous Inferior vena cava is normal in size. Inferior vena cava collapse greater than 50% with respiration. Pericardium/Pleural There is no pericardial effusion. Hemodynamics Pulmonary artery hypertension could not be assessed due to inadequate tricuspid regurgitation jet. Left ventricular diastolic function is normal. Ejection Fraction ?2D Measurements ? Volumes EF(MOD-bp): 46.9 % ?IVSd: 0.68 cm ?LAV(MOD- bp) Indexed: ?LVIDd: 7.0 cm ?LVIDs: 6.1 cm ?17.6 ml/m2 ?LVPWd: 0.92 cm ? RA A4Cs_phl: 13.1 cm2 ? EDV(MOD-bp) Indexed: ?RWT: 0.26 {ratio} ?LV mass(C)d: 246.2 grams ? 81.0 ml/m2 ?LV mass(C)dI: 112.4 grams/m2 ?? ESV(MOD- bp) Indexed: ?asc Aorta Diam: 3.4 cm ? 43.0 ml/m2 ?LVOT diam: 2.3 cm ?SV(LVOT): 86.2 ml ?TAPSE_phl: 1.7 cm ? SI(LVOT): 39.4 ml/m2 Doppler LV V1 VTI: 20.9 cm Ao V2 VTI: 21.4 cm Ao Max: 111.1 cm/sec Ao valve max: 4.9 mmHg Ao valve mean: 2.5 mmHg MV E max luis e: 100.6 cm/sec MV A max luis e: 100.1 cm/sec MV E/A: 1.0 MV dec time: 0.20 sec Lat Peak E' Luis E: 9.6 cm/sec E/e' (lat): 10.5 Med Peak E' Luis E: 8.2 cm/sec E/e' (med): 12.3 E/e' Average: 11.4 BRITTANY(I,D): 4.0 cm2 Dimensionless index Aov: 0.98 I ?WMSI = 1.31 ? % Normal = 81 ?Segments ??Size X - Cannot ?2 - ?4 - ?1-2 ? small Interpret ?1 - Normal ?? Hypokinetic 3 - Akinetic Dyskinetic ?? 3-5 ? moderate 5 - ? 6-14 ?large Aneurysmal ?15-16 ?? diffuse Procedure Note Deandre Jones MD - 05/29/2024 [address] [place] [address] Echocardiogram Report Name: GEOVANNA DIXON JR. Study Date: 410:33 AM Patient Location: [id number] A : 1975 Height: 178 cm Account: [id number] Age: 49 yrs Weight: 102 kg Gender: Male BSA: 2.2 m2 Ordering Physician: EDIN MARIN Referring Physician: KAM SKINNER Performed By: Melina Marinelli RDCS Reason For Study: Limb ischemia Exam Location: [facility]. Interpretation Summary -Left ventricular systolic function is mildly reduced. The leftventricular ejection fraction is 47% by Stacy's biplane. There is akinesis of theinferior wall. -The right ventricle is of normal size. Right ventricular systolicfunction is normal. -No significant valvular disease noted on this study. -Compared with the previous echo performed on 08/21/23, the ejectionfraction has decreased. Procedure Complete-[id number]. An agitated saline bubble contrast study was performed.Image enhancement Optison was used for left ventricular opacification.Satisfactory quality. Left Ventricle Left ventricle is mildly dilated. Wall thickness is normal. Leftventricular systolic function is mildly reduced. The left ventricular ejectionfraction is 47% by Stacy's biplane. There are segmental wall motion abnormalities. Thereis akinesis of the inferior wall. Right Ventricle The right ventricle is of normal size. Right ventricular systolic functionis normal. Left Atrium The left atrium is normal. There is no evidence for a patent foramenovale visualized with agitated saline. Right Atrium The right atrium is probably normal in size. Aortic Valve The aortic valve is not well visualized. There is no aortic stenosis.There is no aortic regurgitation. Mitral Valve The mitral valve is structurally and functionally normal. There is nomitral stenosis. There is mild mitral regurgitation. Tricuspid Valve The tricuspid valve is structurally and functionally normal. There is notricuspid stenosis. There is no tricuspid regurgitation. Pulmonic Valve The pulmonic valve is not well visualized. Great Arteries The aortic root is of normal size. No abnormalities are identified. Themaximum diameter of the proximal ascending aorta is 3.4 cm. Venous Inferior vena cava is normal in size. Inferior vena cava collapse greaterthan 50% with respiration. Pericardium/Pleural There is no pericardial effusion. Hemodynamics Pulmonary artery hypertension could not be assessed due to inadequatetricuspid regurgitation jet. Left ventricular diastolic function is normal. Ejection Fraction 2D Measurements Volumes EF(MOD-bp): 46.9 % IVSd: 0.68 cm LAV(MOD-bp)Indexed: LVIDd: 7.0 cm LVIDs: 6.1 cm 17.6 ml/m2 LVPWd: 0.92 cm RA A4Cs_phl: 13.1cm2 EDV(MOD-bp)Indexed: RWT: 0.26 {ratio} LV mass(C)d: 246.2 grams 81.0 ml/m2 LV mass(C)dI: 112.4 grams/m2 ESV(MOD-bp)Indexed: asc Aorta Diam: 3.4 cm 43.0 ml/m2 LVOT diam: 2.3 cm SV(LVOT): 86.2ml TAPSE_phl: 1.7 cm SI(LVOT): 39.4ml/m2 Doppler LV V1 VTI: 20.9 cm Ao V2 VTI: 21.4 cm Ao Max: 111.1 cm/sec Ao valve max: 4.9 mmHg Ao valve mean: 2.5 mmHg MV E max luis e: 100.6 cm/sec MV A max luis e: 100.1 cm/sec MV E/A: 1.0 MV dec time: 0.20 sec Lat Peak E' Luis E: 9.6 cm/sec E/e' (lat): 10.5 Med Peak E' Luis E: 8.2 cm/sec E/e' (med): 12.3 E/e' Average: 11.4 BRITTANY(I,D): 4.0 cm2 Dimensionless index Aov: 0.98 I WMSI = 1.31 % Normal = 81 SegmentsSize X - Cannot 2 - 4 - 1-2small Interpret 1 - Normal Hypokinetic 3 - Akinetic Dyskinetic 3-5moderate 5 - 6-14large Aneurysmal 15-16diffuse Edin Marin MD ECHO ORDERABLES * (ABNORMAL) Hemoglobin A1c (05/29/2024 2:13 AM EDT) [facility] Hemoglobin A1c 12.6(H) 4.3 - 5.6 % [facility] Comment: Reference Range: 4.3 - 5.6% 5.7 - 6.4% - Increased Risk of Developing Diabetes Mellitus >= 6.5% - Consistent with diagnosis of Diabetes Mellitus In the absence of hyperglycemia (i.e. plasma glucose > 200 mg/dL) or classic symptoms of hyperglycemia a repeat measurement of HbA1c should be performed on a separate sample to confirm the diagnosis. Diagnosis and Classification of Diabetes Mellitus, Diabetes Care 2013; 36: Suppl. 1, S67-47 Estimated Average Glucose 316 mg/dL [facility] Blood 05/29/2024 2:13 AM EDT 05/29/2024 8:03 AM EDT Narrative Resulting Agency Comment Spec In Lab Edin Marin MD CHEMISTRY ORDERABLES [facility] [place] [address] * Type and Screen Validity (05/28/2024 6:20 PM EDT) Pathologist [facility] T&S only valid at [facility] Comment:This Type and Screen result is only valid at the [facility] Blood 05/28/2024 6:20 PM EDT 05/28/2024 6:24 PM EDT Narrative Resulting Agency Comment Spec In Lab María Ugalde MD BLOOD BANK LAB ORDER RANDELL [facility] [place] [address] * ABORH Recheck Status (05/28/2024 6:20 PM EDT) ABORH Type Recheck Completed [facility] Blood 05/28/2024 6:20 PM EDT 05/28/2024 6:24 PM EDT Narrative Resulting Agency Comment Spec In Lab María Ugalde MD BLOOD BANK LAB ORDER RANDELL [facility] [place] [address] * Gold Tube HOLD (05/28/2024 6:20 PM EDT) [facility] Gold Hold Sample in lab. [facility] Blood Venous Draw / Unknown 05/28/2024 6:20 PM EDT 05/28/2024 6:25 PM EDT Juan Santana MD CHEMISTRY ORDERABLES Performing Organization Address City/[facility]/ZIP Co de Phone Number [facility] [place] [address] * Lactate, whole blood, send to lab ([facility] (05/28/2024 6:20 PM EDT) [facility] Lactate WB 1.6 0.5 - 2.2 mmol/L [facility] Blood 05/28/2024 6:20 PM EDT 05/28/2024 6:23 PM EDT Narrative Resulting Agency Comment Spec In Lab Arthur Patel DO CHEMISTRY ORDERABLES [facility] [place] [address] * APTT (05/28/2024 6:20 PM EDT) [facility] Partial Thromboplastin Time 26 25 - 37 sec [facility] Comment: The PTT is NOT appropriate for heparin monitoring. Use the Anti-Xa level for heparin monitoring (HEP UFH) or LMWH monitoring (HEP LMW). A PTT less than 37 seconds generally indicates adequate hemostasis. Blood 05/28/2024 6:20 PM EDT 05/28/2024 6:24 PM EDT Narrative Resulting Agency Comment Spec In Lab Arthur Patel DO HEMATOLOGY ORDERABLE S Performing Organization Address [facility] Co de Phone Number [facility] [place] [address] * Prothrombin Time (05/28/2024 6:20 PM EDT) Prothrombin Time 10.6 9.4 - 12.5 sec [facility] International Normalization Ratio 0.9 [facility] Comment: An INR <2.0 indicates adequate procoagulant activity for hemostasis in most patients without underlying bleeding disorders, though the INR may not adequately reflect hemostatic capacity in patients with liver disease and synthetic impairment. The recommended target INR range for therapeutic anticoagulation is 2.0 ? 3.0 for most applications, though lower and higher ranges may be appropriate depending on clinical circumstances. Blood 05/28/2024 6:20 PM EDT 05/28/2024 6:24 PM EDT Narrative Resulting Agency Comment Spec In Lab Arthur Patel DO HEMATOLOGY ORDERABLE S Performing Organization Address [facility] Co de Phone Number [facility] [place] [address] * Type and screen ([facility]/BABITA) (05/28/2024 6:20 PM EDT) ABORH Type A POSITIVE [facility] Patient BB History Found [facility] Expires at [id number] on: 05-31-2024 [facility] Ab Screen Interp Negative [facility] Blood 05/28/2024 6:20 PM EDT 05/28/2024 6:20 PM EDT Narrative [facility] - 05/28/2024 6:20 PM EDT This Type and Screen result is only valid at the [facility] Resulting Agency Comment Spec In Lab María Ugalde MD BLOOD BANK LAB ORDER RANDELL Performing Organization Address [facility] Co de Phone Number [facility] [place] [address] * Film Library- Storage Only CT Abdomen & Pelvis (05/28/2024 11:50 AM EDT) Narrative [facility] - 05/28/2024 11:50 AM EDT This exam is auto-finalizing. It's purpose is for storage only. Edin Marin MD IMG FILM LIBRARY ORD ERABLES Performing Organization Address [facility] Co de Phone Number [place], [place] * Microalbumin, urine, random (01/06/2012 9:03 PM EST) Creatinine, Urine 136 mg/dL CE RNER MILLENNIUM Albumin, Urine 14.4 mg/L CERNE R MILLENNIUM Albumin / Creatinin Ratio, Urine 11 mcg/mg Cr CERNER MILLENNIUM Comment: Reference Range* Random collection (mcg/mg creatinine) Normal ?<30 Microalbuminuria ?? 30 - 300 Clinical Albuminuria ?? >300 *[place] [employer]. Diabetic Nephropathy. Diabetes Care 1997;(Suppl 1):S24-S27 Exercise within 24 hour, infection, fever, CHF, marked hyperglycemia, and marked hypertension may elevate urinary albumin excretion over baseline values. Urine specimen (specimen) 01/06/2012 9:03 PM EST 01/06/2012 10:28 PM EST Narrative Resulting Agency Comment Spec In Lab Alfonso Morales MD URINE ORDERABLES Performing Organization Address [facility] Co de Phone Number CERNER MILLENNIUM * HIV (12/30/2011 10:18 AM EST) HIV 1/2 Ab Negative CERNER MILLENNIUM Blood specimen (specimen) 12/30/2011 10:18 AM EST 12/30/2011 10:28 AM EST Narrative Resulting Agency Comment Spec In Lab Asif Rene MD CHEMISTRY ORDERABLES ARIAN NELSON from Last 3 Months or Most Recently Relevant to Health Maintenance Advance Directives * Attempt Cardiopulmonary Resuscitation - Inpatient (Latest Code Status on File) Date Activated Date Inactivated Comments 05/28/2024 8:01 PM 06/02/2024 8:50 PM Question Answer Comments Code Status decision made by: Patient Content of discussion: CPR, intubation OK * Full Code Date Activated Date Inactivated Comments 08/20/2013 3:28 PM 08/22/2013 5:41 PM Question Answer Comments Order Status: Initial Order Does patient have decision m aking capacity? Yes, Order is based on Patients wishes. * Full Code Date Activated Date Inactivated Comments 01/04/2012 4:26 PM 01/08/2012 4:59 PM Question Answer Comments Order Status: Initial Order Does patient have decision m aking capacity? Yes, Order is based on Patients wishes. * Full Code Date Activated Date Inactivated Comments 01/01/2012 3:15 PM 01/04/2012 4:18 PM Question Answer Comments Order Status: Initial Order Does patient have decision m aking capacity? Yes, Order is based on Patients wishes. * Full Code Date Activated Date Inactivated Comments 01/01/2012 12:50 AM 01/01/2012 3:09 PM Question Answer Comments Order Status: Initial Order Does patient have decision m aking capacity? Yes, Order is based on Patients wishes. Care Teams Hair Baler Relationship Specialty Start Date End Date None None PCP - General 05/27/24
--- OUTSIDE RECORDS SUMMARY | 2024-07-14 14:34 | XMS_ITS | Encounter Summary ---
Author Organization [facility] [place] [address] Care Team Providers Care Commercial Floor Covering Installer Name Role Phone None Primary Care Provider Unavailabl e Encounter Details Date Type Department Care Team (Late st Contact Info) Description 06/03/2024 Notes Only Community Benefit [facility] [place] [address] Christy Lim Social History Tobacco Use Types Packs/Day Years Used Date Smoking Tobacco: Every Day Cigarettes 1 25 Started: 12/28/1986; Last attempted to quit: 12/28/2011 Alcohol Use Standard Drinks/Week Comments No 0 (1 standard drink = 0.6 oz pur e alcohol) [facility] Utilities Answer Date Recorded In the [...] any time in the past 12 m [facility], were you homeless or living in a prison (including now)? No 05/29/2024 IPV Inpatient Questions Answer Date Recorded Does [...] as of this encounter Progress Notes * Christy Lim - 06/03/2024 2:07 PM EDT JUAN FURNACE RELINER FOLLOW UP: Patient Type: Emergency Department Did the patient participate in scheduled follow up?: No Reason patient did not follow up?: Lost to follow up [facility] attempted to contact Pt at [phone] (M). Number is disconnected, unable to reach Pt. Services have ended. MARKO Zuniga ED Recovery Support Pager # [phone] documented in this encounter Plan of Treatment Not on file documented as of this encounter Visit Diagnoses Not on filedocumented in this encounter Care Teams Commercial Floor Covering Installer Relationship Specialty Start Date End Date None None PCP - General 05/27/24 documented as of this encounter
--- OUTSIDE RECORDS SUMMARY | 2024-07-14 14:35 | XMS_ITS | Encounter Summary ---
Author Organization [facility] Address [facility] [place] [address] Care Team Providers Care Machine Operator Picker Name Role Phone None Primary Care Provider Unavailabl e Encounter Details Date Type Department Care Team (Latest Contact Info) Description 05/30/2024 Travel Social History Tobacco Use Types Packs/Day Years Used Date Smoking Tobacco: Every Day Cigarettes 1 25 Started: 12/28/1986; Last attempted to quit: 12/28/2011 Alcohol Use Standard Drinks/Week Comments No 0 (1 standard drink = 0.6 oz pur e alcohol) [facility] Utilities Answer Date Recorded In the [...] any time in the past 12 m [facility], were you homeless or living in a retirement (including now)? No 05/29/2024 DH IPV Inpatient [...] on filedocumented in this encounter Care Teams Machine Operator Picker Relationship Specialty Start Date End Date None None PCP - General 05/27/24 documented as of this encounter
--- OUTSIDE RECORDS SUMMARY | 2024-07-14 14:35 | XMS_ITS | Encounter Summary ---
Author Organization [facility] Address [facility] [place] [address] Care Team Providers Care Extra Hand Name Role Phone Guanako Gusman MD Primary Care Provider [phone] Reason for Visit * Reason Comments Medication Refill Encounter Details Date Type Department Care Team (Late st Contact Info) Description 12/29/2014 Refill Cardiology at [address] [phone] Amy Joshi, PA [facility] [address] [place] [address] Medication Refill Social History Tobacco Use Types Packs/Day Years Used Date Smoking Tobacco: Every Day Cigarettes 1 25 Started: 12/28/1986; Last attempted to quit: 12/28/2011 Alcohol Use Standard Drinks/Week Comments No 0 (1 standard drink = 0.6 oz pur e alcohol) Sex and Gender Information Value Date Recorded Sex Assigned at Not on file Gender Identity Not on file Sexual Orientation Not on file documented as of this encounter Plan of Treatment Not on file documented as of this encounter Visit Diagnoses Not on filedocumented in this encounter Care Teams Extra Hand Relationship Specialty Start Date End Date Guanako Gusman MD [address] [place] [id number] PCP - General 02/27/19 05/26/24 documented as of this encounter
--- OUTSIDE RECORDS SUMMARY | 2024-07-14 14:35 | XMS_ITS | Encounter Summary ---
Author Organization Formerly [facility] Address [facility] [place] [address] Care Team Providers Care Open Winder Name Role Phone None Primary Care Provider Unavailabl e Reason for Referral * Diagnostic Test (Routine) - Authorized Specialty Diagnoses / Procedures Referred By William t Referred To Contact Diagnoses Limb ischemia Critical limb ischemia of left lower extremity Procedures Arterial Duplex Leg, Unil Preston Dee MD [facility] [place] [address] [facility] [address] [place] [phone] Referral ID Status Reason Start Date Expiration Date Visits Requested Visits Authorized [id number] Authorized Specialty Service Requested 06/02/2024 06/02/2025 1 1 * Diagnostic Test (Routine) - Authorized Specialty Diagnoses / Procedures Referred By Contac t Referred To Contact Diagnoses Limb ischemia Procedures ELEN, legs, multiple levels Preston Dee MD [facility] [place] [address] [facility] [address] [place] [phone] Referral ID Status Reason Start Date Expiration Date Visits Requested Visits Authorized [id number] Authorized Specialty Service Requested 06/02/2024 06/02/2025 1 1 Reason for Visit * Reason Comments Circulatory Problem * Auth/Cert (Routine) Specialty Diagnoses / Procedures Referred By Contac t Referred To Contact Diagnoses Limb ischemia Critical limb ischemia of left lower extremity calf pain Procedures ER IPI Jerry Marin MD [facility] [place] [address] [facility] Referral ID Status Reason Start Date Expiration Date Visits Re quested Visits Authorized [id number] 1 1 Encounter Details Date Type Department Care Team (Latest Contact Info) Description 05/28/2024 5:40 PM EDT - 06/02/2024 6:45 PM EDT Hospital Encounter Surgical Unit Level 4 Wing D at [facility] [place] [id number] Arthur Patel [facility] [place] [address] Jerry Marin MD [facility] [place] [address] Limb ischemia; Critical limb ischemia of left lower extremity Discharge Disposition: Home Social History Tobacco Use Types Packs/Day Years Used Date Smoking Tobacco: Every Day Cigarettes 1 25 Started: 12/28/1986; Last attempted to quit: 12/28/2011 Alcohol Use Standard Drinks/Week Comments No 0 (1 standard drink = 0.6 oz pur e alcohol) [facility] Utilities Answer Date Recorded In the past 12 months has e [employer], gas, oil, or water [employer] threatened to shut off services in your [...] any time in the past 12 m ont, were you homeless or living in a mcc (including now)? No 05/29/2024 DH IPV Inpatient [...] on file documented as of this encounter Last Filed Vital Signs Vital Sign Reading [...] Mass Index 32.3 05/28/2024 5:43 PM EDT documented in this encounter Discharge Summaries * Preston Dee MD - 06/02/2024 5:44 AM EDT Images from the original note were not included. Inpatient - Discharge Summary Patient Name: Geovanna Dixon Jr. Patient Age: 49 y.o. Birthdate: 1975 Admit date: 05/28/2024 Discharge date and time: 06/02/2024 Attending Physician: Jerry Marin MD Discharging Provider: Preston Dee MD Discharging Service: Vascular Surgery Operations/Major Procedures: None Active Hospital Problems: Active Hospital Problems Diagnosis Critical limb ischemia of left lower extremity Resolved Hospital Problems No resolved problems to display. Active Non Hospital Problems: Active Non-Hospital Problems Diagnosis 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 (SVG to PDA closed 08/2013) Diabetes mellitus Obesity NSTEMI (non-ST elevated myocardial infarction) HTN (hypertension) Hyperlipidemia Depression Narcolepsy History of Presentation: Geovanna Dixon Jr. is a 49 y.o. male with PMH of CAD s/p 2V CABG (2012), DM, HTN, HLD, obesity, substance use, narcolepsy/cataplexy, who initially presented to [facility] ED with c/o 3d acute onset left calf pain. CTA revealed short segment popliteal occlusion with distal reconstitution. On arrival to [facility] he is hemodynamically normal on RA. He is motor and sensory intact. Endorsing severe pain in left calf and knee. He denies any foot pain. He states that he first noticed the leg pain last week when he was walking a long distance to get gas for his car when his leg started to cramp up though this pain went away with rest and he did not notice it again until ~3d ago when he was resting and he suddenly developed severe left calf pain that has since persisted. Denies any SOB or chest pain and breathing comfortably on room air. He cannot recall the last time he saw his doctor. He is not taking any blood thinning medications. On evaluation he was awake and answers questions appr opriately but easily falls back asleep. Unable to recall his medications but states he has generally been non-compliant with them and confirms they are up to date on transfer documentation from [facility]. Hospital Course: Geovanna was immediately started on a heparin drip for the L popliteal occlusion and he received a cardiac work-up for preoperative optimization given his history of cardiac history and in case he went to surgery. Cardiology recommended a NST, high-intensity statin, metoprolol, losartan, and upon disch arge to start Jardiance. His NST showed chronic changes from his CAD and CABG, and the rest of the medications were started as recommended. Over the course of several days on the heparin drip, his L calf occlusive pain decreased significantly, but an erythematous, warm region on his medial L calf that he had noticed a few days prior became progressively more tender and mildly indurated. Duplex ultrasound and CT LLE of the calf did not identify any DVT or abscess, so cefazolin was started on 06/01 and a MRSA PCR swab was obtained to treat presumed cellulitis. Today, on 06/02/2024 he has met all criteria for discharge home: his pain is well controlled with medications by mouth, he is tolerating a regular diet, is voiding spontaneously without difficulties,and is up and ambulating without complications. He has been deemed safe for discharge. He will be discharged home with a five day course of Augmentin for the L calf cellulitis and low dose NOAC and aspirin for the L popliteal occlusion, with plans for follow-up appointments in two weeks for wound checks and in four weeks for ABIs and Duplex ultrasound. Important Studies: Results for orders placed or performed during the hospital encounter of 05/28/[address] Component (Exam End: 05/30/2024 11:20 AM) Result Value WORKSTATION ID [id number] NM Pharmacologic Stress and Rest Myocardial Perfusion (Exam End: 05/30/2024 10:40 AM) Result Value WORKSTATION ID [id number] Impression 1. There is a small sized, fixed perfusion defect involving the apical anterior, true apex, and apical inferior segments. Findings are suggestive of prior apical infarct without any significant kaelyn-infarct ischemia. Summed rest score = 4, summed stress score = 4, summed difference score = 0. 2. Left ventricular systolic function is mildly reduced (48%). I have personally reviewed the image(s) and the resident's interpretation and agree with the findings, Angel Oliva MD at 05/30/2024 2:33 PM Thank you for letting us participate in the care of this patient. If you are a health care provider and have any questions regarding this report, please contact the number below. For patients who have questions please contact the health long term acute care registered nurse that requested your imaging first. Electronically signed by: Angel Oliva MD, [facility] ([phone]), at 05/30/2024 2:[address] Lower Extremity w Contrast Left (Exam End: 05/30/2024 7:27 PM) Result Value WORKSTATION ID [id number] Impression 1. 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 2. Moderate stenosis of the distal superficial femoral artery and mild stenosis of the tibio-peroneal trunk. 3. No opacification of the venous vascular structures. Exam nondiagnostic for evaluation for DVT. 4. Distal lower extremity edema without focal collection or abscess. 5. No CT evidence of osteomyelitis. I have personally reviewed the image(s) and the resident's interpretation and agree with the findings, Ignacia Chi MD at 05/31/2024 3:33 PM Thank you for letting us participate in the care of this patient. If you are a health care provider and have any questions regarding this report, please contact the number below. For patients who have questions please contact the health long term acute care registered nurse that requested your imaging first. Electronically signed by: Ignacia Chi MD, [facility] ([phone]), at 05/31/2024 3:33 PM Labs: Recent Results (from the past 72 hour(s)) Basic Metabolic Panel (non-fasting) Result Value Ref Range Glucose Lvl 192 65 - 199 mg/dL BUN 7 (L) 10 - 20 mg/dL Creatinine 0.58 (L) 0.80 - 1.50 mg/dL Sodium 134 (L) 135 - 145 mmol/L Potassium 3.9 3.5 - 5.0 mmol/L Chloride 99 98 - 107 mmol/L CO2 24 22 - 31 mmol/L Anion Gap 11 5 - 15 mmol/L Calcium 9.1 8.5 - 10.5 mg/dL Estimated GFR 119 >=60 mL/min/1.73 m?? Magnesium Result Value Ref Range Magnesium 0.86 0.69 - 1.07 mmol/L Phosphorus Result Value Ref Range Phosphorus 3.8 2.5 - 4.5 mg/dL POCT Glucose Result Value Ref Range POC Glucose 164 65 - 199 mg/dL CT Lower Extremity w Contrast Left Result Value Ref Range WORKSTATION ID [id number] Rapid Drug Screen, Urine (IVAN Request) Result Value Ref Range IVAN Conf Requested No IVAN Requested See Comment Urinalysis without microscopic Result Value Ref Range Glucose UA >=1000 (CRIT) Negative mg/dL Protein UA Negative Negative mg/dL Bilirubin UA Negative Negative mg/dL Urobilinogen UA Normal Normal mg/dL pH UA 7.0 5.0 - 8.0 Blood UA Negative Negative mg/dL Ketones UA Negative Negative mg/dL Nitrite UA Negative Negative Leukocytes UA Negative Negative mcL Appearance UA Clear Clear Spec [place] UA >=1.030 (A) 1.005 - 1.030 Color UA Yellow Yellow Rapid Drug Screen w/o Confirmation, Urine Result Value Ref Range U Barbiturates Screen None Detected None Detected U Benzodiazepines Screen None Detected None Detected U Cocaine Screen Presumptive Pos (A) None Detected U Methadone Metabolites Screen None Detected None Detected U Opiate Screen None Detected None Detected U Cannabinoid Screen None Detected None Detected U Oxycodone Screen Presumptive Pos (A) None Detected U Buprenorphine Screen None Detected None Detected U Fentanyl Screen None Detected None Detected U Tricyclics Screen Presumptive Pos (A) None Detected U Ethanol Screen None Detected None Detected U Amphetamines Screen None Detected None Detected U Creat IVAN 58 >=20 mg/dL U Chromate IVAN <2.0 <=49.9 mg/L U Nitrite IVAN <50 <=499 mg/L U Oxidant IVAN 10 <=199 mg/L U pH IVAN 6.8 3.0 - 10.9 U Adulterants Screen None Detected None Detected Basic Metabolic Panel (non-fasting) Result Value Ref Range Glucose Lvl 273 (H) 65 - 199 mg/dL BUN 7 (L) 10 - 20 mg/dL Creatinine 0.55 (L) 0.80 - 1.50 mg/dL Sodium 133 (L) 135 - 145 mmol/L Potassium 3.9 3.5 - 5.0 mmol/L Chloride 99 98 - 107 mmol/L CO2 22 22 - 31 mmol/L Anion Gap 12 5 - 15 mmol/L Calcium 9.0 8.5 - 10.5 mg/dL Estimated GFR 121 >=60 mL/min/1.73 m?? Magnesium Result Value Ref Range Magnesium 0.83 0.69 - 1.07 mmol/L Phosphorus Result Value Ref Range Phosphorus 3.1 2.5 - 4.5 mg/dL HDL/Cholesterol Profile Result Value Ref Range Chol, Total 156 mg/dL HDL 33 mg/dL Lipid Interpretation See Note LDL Cholesterol, Direct Result Value Ref Range LDL Chol Direct 86 mg/dL Heparin (unfractionated) Level Result Value Ref Range Heparin UFH Level 0.36 IU/mL Hemogram Result Value Ref Range WBC 12.0 (H) 4.0 - 9.5 x10(3)/mcL RBC 4.66 4.58 - 5.54 x10(6)/mcL Hemoglobin 13.6 (L) 13.7 - 16.5 g/dL Hematocrit 39.1 (L) 40.5 - 48.5 % MCV 83.9 82.9 - 93.1 fL MCH 29.2 27.5 - 32.1 pg MCHC 34.8 32.0 - 35.7 g/dL Platelets 246 145 - 357 x10(3)/mcL RDWSD 35.0 (L) 36.0 - 45.0 fL RDWCV 11.5 11.4 - 13.8 % MPV 11.9 7.6 - 12.9 fL nRBC % Auto 0.0 % nRBC Abs Auto 0.000 0.000 - 0.000 x10(3)/mcL Differential, Automated Result Value Ref Range Neutrophils % 75.1 % Neutr Abs (ANC) 9.03 (H) 1.70 - 6.10 x10(3)/mcL Lymphocytes % 14.4 % Lymphocytes Abs 1.7 0.9 - 3.2 x10(3)/mcL Monocytes % 6.2 % Monocyte Abs 0.8 0.3 - 0.9 x10(3)/mcL Eosinophils % 2.1 % Eosinophils Abs 0.2 0.0 - 0.4 x10(3)/mcL Basophils % 1.0 % Basophils Abs 0.1 0.0 - 0.1 x10(3)/mcL Immature Gran % 1.20 % Marie Gran Abs 0.14 (H) 0.00 - 0.04 x10(3)/mcL POCT Glucose Result Value Ref Range POC Glucose 261 (H) 65 - 199 mg/dL Duplex for DVT, Leg, Unilat Result Value Ref Range VB Text Report Department: Vascular Surgery Lab Patient: [id number] (GEOVANNA DIXON) CPT: 47569 Referring Physician: JERRY MARIN Phone: Indications: Left lower extremity localized calf [...] veins throughout the calf due to patient refusal/discomfort. Interpretation: LEFT: No evidence of lower extremity deep venous thrombosis. Comparison: No previous study in our vt scular lab database for comparison. Electronically Signed by: DAGO VÁSQUEZ on 2024-06-02 09:55:39 AM VB Text Report End of Report POCT Glucose Result Value Ref Range POC Glucose 232 (H) 65 - 199 mg/dL POCT Glucose Result Value Ref Range POC Glucose 200 (H) 65 - 199 mg/dL POCT Glucose Result Value Ref Range POC Glucose 187 65 - 199 mg/dL POCT Glucose Result Value Ref Range POC Glucose 248 (H) 65 - 199 mg/dL POCT Glucose Result Value Ref Range POC Glucose 168 65 - 199 mg/dL Basic Metabolic Panel (non-fasting) Result Value Ref Range Glucose Lvl 300 (H) 65 - 199 mg/dL BUN 7 (L) 10 - 20 mg/dL Creatinine 0.54 (L) 0.80 - 1.50 mg/dL Sodium 135 135 - 145 mmol/L Potassium 4.1 3.5 - 5.0 mmol/L Chloride 102 98 - 107 mmol/L CO2 22 22 - 31 mmol/L Anion Gap 11 5 - 15 mmol/L Calcium 9.2 8.5 - 10.5 mg/dL Estimated GFR 121 >=60 mL/min/1.73 m?? Magnesium Result Value Ref Range Magnesium 0.87 0.69 - 1.07 mmol/L Phosphorus Result Value Ref Range Phosphorus 3.2 2.5 - 4.5 mg/dL Hemogram Result Value Ref Range WBC 11.8 (H) 4.0 - 9.5 x10(3)/mcL RBC 4.66 4.58 - 5.54 x10(6)/mcL Hemoglobin 14.1 13.7 - 16.5 g/dL Hematocrit 39.6 (L) 40.5 - 48.5 % MCV 85.0 82.9 - 93.1 fL MCH 30.3 27.5 - 32.1 pg MCHC 35.6 32.0 - 35.7 g/dL Platelets 264 145 - 357 x10(3)/mcL RDWSD 35.0 (L) 36.0 - 45.0 fL RDWCV 11.4 11.4 - 13.8 % MPV 10.8 7.6 - 12.9 fL nRBC % Auto 0.0 % nRBC Abs Auto 0.000 0.000 - 0.000 x10(3)/mcL Differential, Automated Result Value Ref Range Neutrophils % 73.0 % Neutr Abs (ANC) 8.65 (H) 1.70 - 6.10 x10(3)/mcL Lymphocytes % 15.2 % Lymphocytes Abs 1.8 0.9 - 3.2 x10(3)/mcL Monocytes % 7.7 % Monocyte Abs 0.9 0.3 - 0.9 x10(3)/mcL Eosinophils % 1.4 % Eosinophils Abs 0.2 0.0 - 0.4 x10(3)/mcL Basophils % 1.2 % Basophils Abs 0.1 0.0 - 0.1 x10(3)/mcL Immature Gran % 1.50 % Marie Gran Abs 0.18 (H) 0.00 - 0.04 x10(3)/mcL POCT Glucose Result Value Ref Range POC Glucose 296 (H) 65 - 199 mg/dL POCT Glucose Result Value Ref Range POC Glucose 358 (H) 65 - 199 mg/dL POCT Glucose Result Value Ref Range POC Glucose 288 (H) 65 - 199 mg/dL POCT Glucose Result Value Ref Range POC Glucose 264 (H) 65 - 199 mg/dL MRSA PCR Screen ([facility]/CGP/APD/NLH) Specimen: Nasopharyngeal Swab Specimen Type->Nasopharyngeal Swab Result Value Ref Range MRSA Result Negative Negative MRSA Interp Methicillin-resistant Staphylococcus aureus (MRSA) is NOT DETECTED The MRSA target DNA sequences (mec and SCC) were not detected within the acceptable ranges using the Xpert MRSA NxG on the GeneXpert Dx System ([employer]). This suggests the absence of MRSA in the patient specimen submitted for testing. This test is cleared by the U.S. Food and Drug Administration for clinical use and its performance characteristics have been verified by the [facility] at [facility]. This result does not rule out the presence of any other organisms. Rare false negative results may occur if MRSA is present at low concentrations with much higher concentrations of other organisms including MRSE or S. aureus with an empty SCC cassette. POCT Glucose Result Value Ref Range POC Glucose 195 65 - 199 mg/dL POCT Glucose Result Value Ref Range POC Glucose 178 65 - 199 mg/dL POCT Glucose Result Value Ref Range POC Glucose 225 (H) 65 - 199 mg/dL Basic Metabolic Panel (non-fasting) Result Value Ref Range Glucose Lvl 165 65 - 199 mg/dL BUN 7 (L) 10 - 20 mg/dL Creatinine 0.52 (L) 0.80 - 1.50 mg/dL Sodium 137 135 - 145 mmol/L Potassium 4.0 3.5 - 5.0 mmol/L Chloride 102 98 - 107 mmol/L CO2 23 22 - 31 mmol/L Anion Gap 12 5 - 15 mmol/L Calcium 9.5 8.5 - 10.5 mg/dL Estimated GFR 123 >=60 mL/min/1.73 m?? Magnesium Result Value Ref Range Magnesium 0.81 0.69 - 1.07 mmol/L Phosphorus Result Value Ref Range Phosphorus 3.3 2.5 - 4.5 mg/dL Heparin (unfractionated) Level Result Value Ref Range Heparin UFH Level 0.35 IU/mL Hemogram Result Value Ref Range WBC 12.8 (H) 4.0 - 9.5 x10(3)/mcL RBC 4.56 (L) 4.58 - 5.54 x10(6)/mcL Hemoglobin 13.7 13.7 - 16.5 g/dL Hematocrit 39.0 (L) 40.5 - 48.5 % MCV 85.5 82.9 - 93.1 fL MCH 30.0 27.5 - 32.1 pg MCHC 35.1 32.0 - 35.7 g/dL Platelets 283 145 - 357 x10(3)/mcL RDWSD 35.7 (L) 36.0 - 45.0 fL RDWCV 11.6 11.4 - 13.8 % MPV 10.2 7.6 - 12.9 fL nRBC % Auto 0.0 % nRBC Abs Auto 0.000 0.000 - 0.000 x10(3)/mcL Differential, Automated Result Value Ref Range Neutrophils % 75.2 % Neutr Abs (ANC) 9.62 (H) 1.70 - 6.10 x10(3)/mcL Lymphocytes % 12.7 % Lymphocytes Abs 1.6 0.9 - 3.2 x10(3)/mcL Monocytes % 7.8 % Monocyte Abs 1.0 (H) 0.3 - 0.9 x10(3)/mcL Eosinophils % 1.1 % Eosinophils Abs 0.1 0.0 - 0.4 x10(3)/mcL Basophils % 0.9 % Basophils Abs 0.1 0.0 - 0.1 x10(3)/mcL Immature Gran % 2.30 % Marie Gran Abs 0.29 (H) 0.00 - 0.04 x10(3)/mcL POCT Glucose Result Value Ref Range POC Glucose 299 (H) 65 - 199 mg/dL POCT Glucose Result Value Ref Range POC Glucose 270 (H) 65 - 199 mg/dL POCT Glucose Result Value Ref Range POC Glucose 306 (H) 65 - 199 mg/dL Pending Studies and Lab Data: None Discharge Condition: Stable Discharge to: Home Future Appointments and Orders Future Orders Complete By Expires ELEN, legs, multiple levels [VAS8 Custom] 07/03/2024 01/02/2025 Process Instructions: There is no in-house vascular grass farm laborer available on weeknights (5pm-8am), weekends, or holidays. IF THIS IS A REQUEST FOR AN EMERGENT STUDY DURING THOSE HOURS, please have the senior provider responsible for the patient page the Vascular Surgery Fellow/Senior Resident exploration manager to discuss options. Scheduling Instructions: Questions: Indication for study/signs & symptoms: L poplital artery occlusion and PAD Question to be answered: Adequacy of LLE perfusion Preferred location?: [facility] Clinics Arterial Duplex Leg, Unil [VAS32 Custom] 07/03/2024 (Approximate) 01/02/2025 Process Instructions: There is no in-house vascular grass farm laborer available on weeknights (5pm-8am), weekends, or holidays. IF THIS IS A REQUEST FOR AN EMERGENT STUDY DURING THOSE HOURS, please have the senior provider responsible for the patient page the Vascular Surgery Fellow/Senior Resident exploration manager to discuss options. Scheduling Instructions: Questions: Indication for study/signs & symptoms: L popliteal occlusion in setting of PAD Question to be answered: adequate arterial flow in lower leg, particularly near site of occlusion Laterality: Left Is there a LEFT LOWER EXTREMITY graft?: No Lower limb left segments: Popliteal Common Femoral Profunda Superficial Femoral Tibial Is there a stent?: No Preferred location?: [facility] Clinics Anticoagulation & Antiplatelet: Anticoagulation: Agent: Xarelto 2.5mg BID Indication: Left popliteal artery occlusion Intended Duration: Indefinitely, will discuss at follow-up appointment Antiplatelet: Agent: Aspirin 81mg Indication: CAD Intended Duration: Indefinitely For questions regarding these medications, please contact Vascular Surgery at [phone]. For issues on weeknights after 5pm and weekends please call [phone] and ask for the Vascular Fellow kuldeep. Discharge Medications: Your Medications New Medications Dose Details amoxicillin-clavulanate 875-125 mg tablet Commonly known as: Augmentin Take 1 tablet by mouth 2 times daily for 5 days. 1 tablet Quantity: 10 tablet Refills: 0 atorvastatin 80 mg tablet Commonly known as: Lipitor Take 1 tablet by mouth every evening. 80 mg Quantity: 90 tablet Refills: 3 empagliflozin 25 mg tablet Commonly known as: Jardiance Take 1 tablet by mouth daily. 25 mg Quantity: 30 tablet Refills: 0 insulin lispro 100 unit/mL Insulin Pen Commonly known as: humaLOG KwikPen Inject SQ 3 times daily before meals: 10 unit meal dose plus sliding scale 1:20>140 - see insulin chart for instructions Indications: type 2 diabetes mellitus Quantity: 15 mL Refills: 0 insulin needles (disposable) 32 gauge x 5/32 Needle Inject 1 each subcutaneously 4 times daily. Indications: diabetes 1 each Quantity: 400 each Refills: 0 losartan 50 mg tablet Commonly known as: Cozaar Take 1 tablet by mouth daily. Start taking on: June 03, 2024 50 mg Quantity: 90 tablet Refills: 3 metoprolol succinate XL 25 mg ER 24 hr tablet Commonly known as: Toprol-XL Take 1 tablet by mouth daily. Start taking on: June 03, 2024 25 mg Quantity: 30 tablet Refills: 12 Trulicity 1.5 mg/0.5 mL Pen Injector Inject 0.5 mLs subcutaneously once a week. Indications: type 2 diabetes mellitus Generic drug: dulaglutide 1.5 mg Quantity: 2 mL Refills: 11 Continued medications with new dosing Dose Details * aspirin EC 81 mg EC (DR) tablet Take 1 tablet by mouth daily. What changed: Another medication with the same name was added. Make sure you understand how and when to take each. 81 mg Quantity: 30 tablet Refills: 11 * aspirin EC 81 mg EC (DR) tablet Take 1 tablet by mouth daily. Start taking on: June 03, 2024 What changed: You were already taking a medication with the same name, and this prescription was added. Make sure you understand how and when to take each. 81 mg Quantity: 30 tablet Refills: 3 insulin glargine 100 unit/mL (3 mL) pen Commonly known as: Lantus Inject 35 Units subcutaneously nightly. What changed: how much to take 35 Units Quantity: 3 mL Refills: 11 * This list has 2 medication(s) that are the same as other medications prescribed for you. Read thedirections carefully, and ask your doctor or other care provider to review them with you. Continued medications, unchanged Dose Details acetaminophen 500 mg tablet Commonly known as: Tylenol Take 2 tablets by mouth every 6 hours as needed for Pain. 1,000 mg Quantity: 30 tablet Refills: 0 blood sugar diagnostic strips Strip Commonly known as: freestyle lite strips by Other route 2 times daily. 1 box = 100 test strips Indications: prediabetes s/p CABG Quantity: 100 each Refills: 1 lancets Misc Commonly known as: FreeStyle Lancets by Other route 2 times daily as needed. 1 box = 100 lancets Indications: prediabetes now s/p CABG Quantity: 100 each Refills: 11 metFORMIN 500 mg tablet Commonly known as: Glucophage Take 2 tablets by mouth 2 times daily. 1,000 mg Quantity: 120 tablet Refills: 0 methylphenidate 20 mg tablet Commonly known as: Ritalin Take 20 mg by mouth 3 times daily. 20 mg Refills: 0 nitroGLYcerin 0.4 mg sublingual tablet Commonly known as: Nitrostat Place 1 tablet under the tongue daily as needed for Chest pain. 0.4 mg Quantity: 25 tablet Refills: 1 omeprazole 20 mg Tablet,Rapid Dissolve, DR Take by mouth Daily at Noon. Refills: 0 protriptyline 5 mg tablet Commonly known as: Vivactil Take 10 mg by mouth every 8 hours. 10 mg Refills: 0 venlafaxine 75 mg tablet Commonly known as: Effexor Take 225 mg by mouth daily. 225 mg Refills: 0 STOPPED Medications clopidogreL 75 mg tablet Commonly known as: Plavix dexlansoprazole [address] capsule Commonly known as: Dexilant glimepiride 2 mg tablet Commonly known as: Amaryl lisinopriL 40 mg tablet Commonly known as: Zestril metoprolol tartrate 50 mg tablet Commonly known as: Lopressor senna-docusate 8.6-50 mg Tablet Commonly known as: Pericolace simvastatin 20 mg tablet Commonly known as: Zocor Updated Allergies/ADRs: No Known Allergies Follow-up Recommendations for Providers: Plan is for follow-up with Vascular Surgery in two weeks for wound checks and in four weeks for ABIs and Duplex ultrasound. Also recommend follow-up with PCP for management of comorbidities, especially cardiac conditions. Instructions Given to Patient at Discharge: Patient Instructions Patient Instructions You were admitted on 05/28/2024 due to a blood vessel in your leg being occluded by a likely blood clot. You were started on blood thinners to prevent the clot from expanding while your body began re-absorbing the clot. You were also started on antibiotics for a superficial skin infection on your left calf. Please complete your antibiotic course as instructed, and take your aspirin and Xarelto (also known as rivaroxaban) as instructed. Dr. Marin will want you to be seen in approximately one month with ABIs and an ultrasound of yourleft leg. All of this will be ordered and sent to you in the mail. If for some reason you don't receive this within a week or so please call our office as your followup is very important. Anticoagulation: Xarelto 2.5mg twice a day, once in the morning and once in the evening Antiplatelet: Aspirin 81mg daily Call your doctor if: Any fever, significantly worsening leg pain, or if wounds develop on your leftleg. Activity level: As much as you can tolerate. Diet: resume your previous regular diet, work on reducing sugar intake due to severe DM For any problems or questions please call [phone] For issues on weeknights after 5pm and weekends please call [phone] and ask for the Vascular Fellow exploration manager. Vascular Surgery Contact Information: For any problems or questions please call [phone] For issues on weeknights after 5pm and weekends please call [phone] and ask for the Vascular Fellow exploration manager. documented in this encounter Discharge Instructions * Discharge Instructions* Anabel Castelan MD - 05/31/2024 9:43 AM EDT Diabetes Discharge Instructions & Recommendations Discharge Medications: Continue Jardiance 25 mg daily Trulicity 1.5 mg weekly Metformin 1000 mg twice per day Glargine dose will be decreased from 65 U daily to 35 U daily Will START short acting lispro with meals If blood glucose is less than 100 after some time on Trulicity can decrease lispro dosing with meals. Please make an appointment to see your diabetes provider. Blood Sugar Checks (aka, finger-sticks): Every day, please check your blood sugar at these 4 times and record your result each time (we recommend keeping a daily logbook so you can look back on all of your results in one place): 1) Before eating breakfast (aka your fasting blood sugar) 2) Before eating lunch 3) Before eating dinner 4) Before going to bed` Instructions for insulin glargine (Lantus) Insulin (LONG ACTING) Please inject Lantus 35 units every morning. If you typically take your long acting insulin at bedtime, would take half of your dose of glargine tonight and start the full dose tomorrow evening. If your fasting blood sugars are above 150mg/dl two days in a row, please increase your Lantus by 2units. If your fasting blood sugars are below 90mg/dl two days in a row, please decrease your Lantus by 2 units. This dose now becomes your new daily dose unless it need to be further adjusted based on future glucose readings. Short-Acting Insulin Instructions: It gives your body an extra burst of insulin. There are two reasons that you are using short-acting insulin, for correction of a high blood sugar and to cover carbohydrates that you consume in a meal to PREVENT a high blood sugar: Instructions for insulin lispro (Humalog) Correction Insulin before meals If your blood sugar before a meal time is elevated, please give the following correction of 1 unit for every points above a blood sugar of 140 mg/dl. Please follow the scale below. CORRECTION BOLUS [1-9 Units] Moderate Sliding Scale (BG in mg/dL): Correction factor 20 (1 unit of insulin is expected to drop the glucose 20 mg/dL) BG 140 - 160 Give 1 unit BG 161 - 180 Give 2 units BG 181 - 200 Give 3 units BG 201 - 220 Give 4 units BG 221 - 240 Give 5 units BG 241 - 260 Give 6 units BG 261 - 280 Give 7 units BG 281 - 300 Give 8 units BG greater than 300, give 9 units and recheck BG in 2 hours after dose administered. Instructions for insulin lispro (Humalog) Mealtime Test your blood sugar ideally 15 minute before you plan to eat. Estimate the number of carbohydrates you plan to eat, and calculate your food dose: 1 unit for every 6g of carbohydrates. Please inject a base dose of Humalog 10 units with meals. If you are eating a larger meal, please increase your Humalog to 12 units. If you are eating a smaller meal, please decrease your Humalog to 6 units. If you are not eating any carbohydrates or skipping a meal, please skip base dose of Humalog. High Blood Sugar (Hyperglycemia) and Ketones When blood sugar is >180 the kidneys attempt to rid the body of excess glucose by producing moreurine. You may to need to use the bathroom more frequently. These occasions include periods of stress, illness, over-eating, fasting, and lack of exercise. High blood sugars are generally not an emergency. You could become mcneil or experience emotional swings. Occasionally, high blood sugars indicate a more serious problem! KETONES Ketones are made when the body lacks insulin and is using fat for energy. If allowed to build up inthe body, they can cause YOU to have nausea, vomiting, and severe illness. CHECK FOR KETONES with ketone blood strips or ketone urine strips When blood sugar is > 250 When YOU ARE ill, don't feel well or are having abdominal pain. If no ketones are present, this is not an urgent situation. Drink sugar-free fluids such as water. If ketones are positive TAKE extra insulin for high blood sugars - add 25-50% more to your correction. Example. If correction dose for 200 is 2 units, take 3 units. Continue taking extra correction until Ketones are negative and BG are back under 200. Drink lots of sugar-free fluids Continue testing ketones every 4 hours until negative. If Ketones are positive, and you cannot eat or drink because of nausea/vomiting, go to the emergency room. Treatment of Low Blood Sugar (Hypoglycemia) 15:15 rule - if your blood sugars is under 80, eat 15g of sugar, and recheck your blood sugar in 15minutes. If you continue to be under 80 after 15 minutes, eat 15g of sugar more, and repeat. If BG is over 100 on recheck, no need to consume more sugar, and recheck BG in another 15 minutes. If your BG is lower than 80, you are likely to feel shaky, sweaty and lightheaded. This is a signalthat your body needs more sugar. Quickly eat or drink a 15g of something sweet, such as: 4 ounces fruit juice or regular (not diet) soda 6 lifesavers small box of raisins 4 glucose tablets (~15 gm of glucose) If your BG is very low <50, you can double the amount above or take 30 gm of glucose gel/tablets. Once you are feeling better, try to determine why your BG was so low. Common causes of hypoglycemiainclude skipping a meal, lots of exercise, too much insulin or any combination of these things. Understanding the cause my help you to avoid another low BG in the future. Test blood sugars prior to driving, make sure glucose levels are greater than 100mg/dl. If not havea snack and retest blood sugars in 15 minutes. Carry a glucose source on you at all times. Call your diabetes provider for blood sugars less than 80 or greater than 300 twice in one day to have your insulin doses adjusted. Treatment of Low Blood Sugar (Hypoglycemia) 15:15 rule - if your blood sugars is under 80, eat 15g of sugar, and recheck your blood sugar in 15minutes with a fingerstick. If you continue to be under 80 after 15 minutes, eat 15g of sugar more, and repeat. If BG is over 100 on recheck, no need to consume more sugar, and recheck BG in another 15 minutes. If you are using a CGM, and it says you are under 80 but you feel fine, check a fingerstick before treating. If your BG is lower than 80, you are likely to feel shaky, sweaty and lightheaded. This is a signalthat your body needs more sugar. Quickly eat or drink a 15g of something sweet, such as: 4 ounces fruit juice or regular (not diet) soda 6 lifesavers small box of raisins 4 glucose tablets (~15 gm of glucose) If your BG is very low <50, you can double the amount above or take 30 gm of glucose gel/tablets. Once you are feeling better, try to determine why your BG was so low. Common causes of hypoglycemiainclude skipping a meal, lots of exercise, too much insulin or any combination of these things. Understanding the cause my help you to avoid another low BG in the future. Test blood sugars prior to driving, make sure glucose levels are greater than 100mg/dl. If not havea snack and retest blood sugars in 15 minutes. Carry a glucose source on you at all times. Call your diabetes provider for blood sugars less than 80 or greater than 300 twice in one day to have your insulin doses adjusted. [facility]/[address] [address] [email or web address] Hours Wed through Wednesday 8:00am to 2:00 pm * Patient Instructions* Preston Dee MD - 06/02/2024 2:06 PM EDT Patient Instructions You were admitted on 05/28/2024 due to a blood vessel in your leg being occluded by a likely blood clot. You were started on blood thinners to prevent the clot from expanding while your body began re-absorbing the clot. You were also started on antibiotics for a superficial skin infection on your left calf. Please complete your antibiotic course as instructed, and take your aspirin and Xarelto (also known as rivaroxaban) as instructed. Dr. Marin will want you to be seen in approximately one month with ABIs and an ultrasound of yourleft leg. All of this will be ordered and sent to you in the mail. If for some reason you don't receive this within a week or so please call our office as your followup is very important. Anticoagulation: Xarelto 2.5mg twice a day, once in the morning and once in the evening Antiplatelet: Aspirin 81mg daily Call your doctor if: Any fever, significantly worsening leg pain, or if wounds develop on your leftleg. Activity level: As much as you can tolerate. Diet: resume your previous regular diet, work on reducing sugar intake due to severe DM For any problems or questions please call [phone] For issues on weeknights after 5pm and weekends please call [phone] and ask for the Vascular Fellow exploration manager. * Attachments The following attachments cannot be sent through Care Everywhere. * Direct Oral Anticoagulants: Non-Vitamin K Antagonist (Scottish) documented in this encounter Medications at Time of Discharge Medication Sig Dispensed Refills Start Date End Date losartan (Cozaar) 50 mg tablet Take 1 tablet by mouth daily. 90 tablet 3 06/03/2024 metoprolol succinate XL (Toprol-XL) 25 mg ER 24 hr tablet Take 1 tablet by mouth daily. 30 tablet 12 06/03/2024 atorvastatin (Lipitor) 80 mg tablet Take 1 tablet by mouth every evening. 90 tablet 3 06/02/2024 insulin lispro (humaLOG KwikPen) 100 unit/mL Insulin PenIndications:type 2 diabetes mellitus Inject SQ 3 times daily before meals: 10 unit meal dose plus sliding scale 1:20>140 - see insulin chart for instructions Indications: type 2 diabetes mellitus 15 mL 06/02/2024 insulin needles, disposable, 32 gauge x 5/32 NeedleIndications:d iabetes mellitus Inject 1 each subcutaneously 4 times daily. Indications: diabetes 400 each 06/02/2024 insulin glargine (Lantus) 100 unit/mL (3 mL) pen Inject 35 Units subcutaneously nightly. 3 mL 11 06/02/2024 metFORMIN (Glucophage) 500 mg tablet Take 2 tablets by mouth 2 times daily. 120 tablet 06/02/2024 dulaglutide (Trulicity) 1.5 mg/0.5 mL Pen InjectorIndications :type 2 diabetes mellitus Inject 0.5 mLs subcutaneously once a week. Indications: type 2 diabetes mellitus 2 mL 11 06/02/2024 empagliflozin (Jardiance) 25 mg tablet Take 1 tablet by mouth daily. 30 tablet 06/02/2024 aspirin EC 81 mg EC (DR) tablet Take 1 tablet by mouth daily. 30 tablet 3 06/03/2024 methylphenidate (Ritalin) 20 mg tablet Take 20 mg by mouth 3 times daily. 05/02/2024 omeprazole 20 mg Tablet,Rapid Dissolve, DR Take by mouth Daily at Noon. 03/07/2024 aspirin 81 mg EC tablet Take 1 tablet by mouth daily. 30 tablet 11 08/22/2013 nitroGLYcerin (NITROSTAT) 0.[address] 1 tablet under the tongue daily as needed for Chest pain. 25 tablet 1 08/22/2013 Blood Sugar Diagnostic (FREESTYLE LITE STRIPS) test stripIndications:pr ediabetes s/p CABG by Other route 2 times daily. 1 box = 100 test strips Indications: prediabetes s/p CABG 100 each 1 01/08/2012 Lancets (FREESTYLE LANCETS) MiscIndications:pre diabetes now s/p CABG by Other route 2 times daily as needed. 1 box = 100 lancets Indications: prediabetes now s/p CABG 100 each 11 01/08/2012 acetaminophen (TYLENOL) 500 mg tablet Take 2 tablets by mouth every 6 hours as needed for Pain. 30 tablet 01/08/2012 protriptyline (VIVACTIL) 5 mg tablet Take 10 mg by mouth every 8 hours. venlafaxine (EFFEXOR) 75 mg tablet Take 225 mg by mouth daily. amoxicillin-clavula florence (Augmentin) 875-125 mg tablet Take 1 tablet by mouth 2 times daily for 5 days. 10 tablet 06/02/2024 06/07/2024 documented as of this encounter Progress Notes * Preston Dee MD - 06/01/2024 11:43 AM EDT Vascular Surgery Progress Note Geovanna Dixon Jr. is a 49 y.o. male with PMH of CAD s/p 2V CABG (2012), DM, HTN, HLD, obesity, substance abuse, narcolepsy/cataplexy, who initially presented to [facility] ED with c/o 3d acute onset left calf pain. CTA revealed short segment popliteal occlusion with distal reconstitution. On arrival to [facility] he is hemodynamically normal on RA. He is motor and sensory intact. Endorsing severe pain in left calf and knee. He denies any foot pain. He states that he first noticed the leg pain last week when he was walking a long distance to get gas for his car when his leg started to cramp up though this pain went away with rest and he did not notice it again until ~3d ago when he was resting and he suddenly developed severe left calf pain that has since persisted. Denies any SOB or chest pain and breathing comfortably on room air. He cannot recall the last time he saw his doctor. He is not taking any blood thinning medications. On evaluation he was awake and answers questions appr opriately but easily falls back asleep. Unable to recall his medications but states he has generally been non-compliant with them and confirms they are up to date on transfer documentation from [facility]. Active Hospital Problems Diagnosis Critical limb ischemia of left lower extremity Resolved Hospital Problems No resolved problems to display. Active Non-Hospital Problems Diagnosis 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 (SVG to PDA closed 08/2013) Diabetes mellitus Obesity NSTEMI (non-ST elevated myocardial infarction) HTN (hypertension) Hyperlipidemia Depression Narcolepsy Scheduled Medications: [START ON 06/02/2024] insulin glargine (Lantus;Semglee) (100 unit/mL) subcutaneous injection 28 Units Subcutaneous Daily insulin glargine (Lantus;Semglee) (100 unit/mL) subcutaneous injection 8 Units Subcutaneous Once insulin lispro 1-13 Units Subcutaneous TID WC ceFAZolin 2 g Intravenous Q8H insulin lispro 1-9 Units Subcutaneous 4 Times Daily AC & HS metoprolol succinate XL 25 mg Oral Daily losartan 50 mg Oral Daily sodium chloride 0.9 % (flush) 5 mL Intravenous BID senna-docusate 2 tablet Oral BID acetaminophen 975 mg Oral Q6H JOSE nicotine 1 patch Transdermal Daily And Patch Verification 1 patch Transdermal BID aspirin EC 81 mg Oral Daily benzonatate 100 mg Oral TID venlafaxine XR 225 mg Oral Daily with breakfast methylphenidate 20 mg Oral TID AC atorvastatin 80 mg Oral QPM modafiniL 200 mg Oral BID cholecalciferoL 1,000 Units Oral Daily pantoprazole EC 40 mg Oral Daily Operations This Hospitalization: 24 event/ Subjective: - symptomatically improved on heparin, but L medial calf still painful - no nausea, vomiting, CP, SOB - HDS, afebrile Objective: Temp: [36.4 ??C (97.5 ??F)-36.9 ??C (98.4 ??F)] Heart Rate: [76-90] Resp: [15-19] BP: (135-164)/(96-106) SpO2: [93 %-96 %] Heart Rate from SpO2: [80 bpm-90 bpm] BMI: Weight: 102.7 kg (226 lb 6.4 oz) (05/30/24 0600) BMI (Calculated): 33 BMI Classification: Obese Intake/Output Summary (Last 24 hours) at 06/01/2024 1143 Last data filed at 06/01/2024 0800 Gross per 24 hour Intake 840 ml Output 2500 ml Net -1660 ml PHYSICAL EXAM: General: NAD, resting comfortably HEENT: PERRL, anicteric sclerae Neck: trachea midline Heart:: regular rate Pulmonary: non-labored breathing Abdomen: soft, non tender, non distended Neuro: no focal deficits Extremities: RLE: No edema. Skin warm and pink. No tissue loss. Brisk capillary refill LLE: No edema. L medial calf has mildly erythematous region that is warm and tender to palpation, mild induration, no crepitus or fluctuance. No tissue loss. Delayed capillary refill >2 seconds. Faint doppler PT only Labs: Recent Labs 06/01/24 0612 05/31/24 0526 05/30/24 0039 WBC 11.8* 12.0* 9.3 HGB 14.1 13.6* 13.3* HCT 39.6* 39.1* 38.3* PLATELET 264 246 193 Recent Labs 06/01/24 0612 05/31/24 0526 05/30/24 1647 05/30/24 0039 NA 135 133* 134* 132* K 4.1 3.9 3.9 4.2 CL 102 99 99 98 CO2 22 24 22 BUN 7* 7* 7* 9* CREATININE 0.54* 0.55* 0.58* 0.56* PHOS 3.2 3.1 3.8 2.9 CALCIUM 9.2 9.0 9.1 8.7 Microbiology: Microbiology Results (Last 30 days) No results found for the last 720 hours. Imaging: ABIs Department: Vascular Surgery Lab Patient: [id number] (GEOVANNA DIXON) CPT: 09488 Referring Physician: JERRY MARIN Phone: Indications: PAD pre-op bypass. Patient Positioning: Reverse Trendelenburg Findings: Right Diameter (mm) Depth (mm) Thrombus? GSV, Near SFJ 2.3 12.4 GSV, Proximal Thigh 1.4 12.5 GSV, Mid Thigh Not Identified GSV, Distal Thigh Not Identified GSV, Knee NON-OCCLUSIVE THROMBUS GSV Prox Calf NON-OCCLUSIVE THROMBUS GSV, Mid Calf NON-OCCLUSIVE THROMBUS GSV, Distal Calf NON-OCCLUSIVE THROMBUS Left Diameter (mm) Depth (mm) GSV, Near SFJ 7.9 33.6 GSV, Proximal Thigh 7.0 14.8 GSV, Mid Thigh 2.4 10.7 GSV, Distal Thigh 3.1 3.5 GSV, Knee 2.3 9.3 GSV Prox Calf 1.8 4.3 GSV, Mid Calf 2.0 3.1 GSV, Distal Calf 1.2 4.8 Interpretation: Right: the great saphenous vein has been harvested. 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 Left: Patent great saphenous vein with branches throughout the thigh, no evidence of sclerosis or thrombus. New Studies: Echo 05/29 Assessment & Plan: Geovanna Dixon Jr. is a 49 y.o. male with PMH severe DM (A1c 12.6), CAD s/p CABG in 2012, and SAMI admitted for management of short segment L popliteal occlusion with distal reconstitution. He does notmeet criteria for critical limb ischemia. However, he does have a concerning region on his L medialcalf suspicious for cellulitis vs abscess vs. DVT. CT LLE and Duplex u/s did not find evidence of DV T or abscess. Plan is to treat for cellulitis and continue AC for treatment of L popliteal occlusion. - Continue Heparin drip with plan to transition to NOAC - Start Ancef 2g q8h IV and obtain MRSA swab - Cardiology consult - recommended pharm NST, aspirin, statin, Losartan 50mg, Metoprolol succinate 25mg. Per Cards - expectation is that there will be no ischemia and he will be optimized for surgical procedure. - Endo consult - recommended insulin glargine 28u daily in morning, 1:6 ICR meal-associated, and MDSSI, and GAD65 antibody, islet cell antibody, and TSH for further eval of DM etiology given his early onset and severity - BIT consult for history of SAMI and concern for possible self-injection using PIV on 05/30 PM soon after his visitor left - Carb control diet - Daily labs replete PRN - ASA, statin, Losartan, and metoprolol per Cards recs Preston Dee MD 06/01/2024 Pager: [phone] * Anabel Castelan MD - 06/01/2024 11:42 AM EDT Follow Up Diabetes Consult Patient Interview Mr Dixon is our 49 y.o. years old male with PMH significant for DM (Last A1C of 12.6%) as well as CAD s/p 2V CABG (2012), DM, HTN, HLD, obesity, substance abuse, narcolepsy/cataplexy who was admittedon 05/28/2024 for 3 days of acute left calf pain found to have short segment popliteal occlusion with distal reconstitution on CTA being managed on heparin drip. We were consulted to assist in diabetes management for a history of poorly controlled DM. Patient was initiated on moderate correction sliding scale four times per day, meal associated lispro with an ICR 1:8 as well as glargine 15 U --> 20 U. Patients blood sugars have been suboptimally controlled. Objective Temp: [36.4 ??C (97.5 ??F)-36.9 ??C (98.4 ??F)] Heart Rate: [76-90] Resp: [15-19] BP: (135-164)/(96-106) SpO2: [93 %-96 %] Heart Rate from SpO2: [80 bpm-90 bpm] Current Regimen Lantus: 20 U daily Lispro 1:8 insulin to carbohydrate ratio Lispro for correction prior to meals and bedtime with moderate correction scale Recent Glucose Levels Recent Labs 06/01/24 0817 06/01/24 0813 06/01/24 0643 05/31/24 2326 05/31/24 2028 05/31/24 1631 05/31/24 1243 05/31/24 0819 05/31/24 0653 05/30/24 1741 05/30/24 1242 05/30/24 0749 POCGLU 288* 358* 296* 168 248* 187 200* 232* 261* 164 200* 216* ASSESSMENT Vivien Dixon is our 49 y.o. year old male with PMH significant for DM (Last A1C of 12.6%) as well as CAD s/p 2V CABG (2012), DM, HTN, HLD, obesity, substance abuse, narcolepsy/cataplexy who was admitted on 05/28/2024 for 3 days of acute left calf pain found to have short segment popliteal occlusion withdistal reconstitution on CTA managed on heparin drip with plans for angiogram this week. Inpatient diabetes team following for a history of uncontrolled diabetes. Patient has been non adherent to hisoutpatient regimen with poor follow up with providers as well as not picking up prescribed medications from pharmacy. Additionally, patient has poor nutrition intake at home and would benefit from nutritional counseling for which one of our firer glost kiln met with him on 05/31. Glargine has been up titrated given glucose not adequately controlled and will also be changing carb ratio for meals and snacks to 1:6. Recommendations were communicated with the primary team. PLAN Increase Lantus from 20 U to 28 U daily (additional 8 U ordered this morning) then continue 28 U daily tomorrow Change Lispro 1:8 to 1:6 insulin to carbohydrate ratio for meals and snacks Continue Lispro for correction prior to meals and at bedtime with moderate correction scale Patient case was discussed with Dr. Reno. Anabel Castelan MD. PGY4 [facility] Endocrinology 20 minutes of this 35 minute visit was spent with the patient in counseling on diabetes and treatment plan, reviewing all glucose and insulin data as well as relevant laboratory results with the patient, and coordination of care on the inpatient unit including nursing and primary team. * Bindu Ritter, RD - 05/31/2024 12:35 PM EDT Nutrition Brief Note Geovanna Dixon Jr. is a 49 y.o. male with PMH of CAD s/p 2V CABG (2012), DM, HTN, HLD, obesity, substance abuse, narcolepsy/cataplexy, who initially presented to [facility] ED with c/o 3d acute onset left calf pain. CTA revealed short segment popliteal occlusion with distal reconstitution. Reason for intervention: Education Nutrition Recommendations: DM diet education provided for carb control level 2 diet. Reviewed sources of carbohydrate and label reading. Discussed sugar-free beverage options and ways to portion out his favorite foods as a part of carbohydrate allowance. Encouraged 3 meals/day plus 2 snacks with a protein source at each. Written education materials provided. All questions answered at this time. Pt verbalizes understanding but would benefit from outpatient follow up. Consult received for diabetes diet education. Spoke with pt who reports eating 2 meals/day (breakfast and dinner) and snacking throughout the day. Breakfast may be Fruity Raisa with milk or eggs and morris plus 20 oz orange juice. Snacks on chips, ice cream, candy (Nerds clusters) throughout the day and eats an evening meal which is usually takeout (instrument lens grinder or pizza). Drinks up to 18 cans of Moun tain Dew/day or 1.5 gallons of milk daily. Bindu Ritter RD * Preston Dee MD - 05/31/2024 12:13 PM EDT Vascular Surgery Progress Note Geovanna Dixon Jr. is a 49 y.o. male with PMH of CAD s/p 2V CABG (2012), DM, HTN, HLD, obesity, substance abuse, narcolepsy/cataplexy, who initially presented to [facility] ED with c/o 3d acute onset left calf pain. CTA revealed short segment popliteal occlusion with distal reconstitution. On arrival to [facility] he is hemodynamically normal on RA. He is motor and sensory intact.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 ROS: As per HPI. Remainder of ROS is otherwise noncontributory. Vitals: Last Value Range last 24 hrs Temperature Temp: 36.4 ??C (97.5 ??F) Temp: [36.4 ??C (97.5 ??F)] Heart Rate Heart Rate: 85 Heart Rate: [76-85] No data recorded Blood Pressure BP: 114/72 BP: (114-125)/(72-90) BP (Arterial Line): -- Respiratory Rate Resp: 22 Resp: [16-22] SpO2 SpO2: 97 % SpO2: [93 %-97 %] O2 Device O2 Device: None (Room air) Physical Exam: GEN: resting comfortably in bed, pleasant, conversant, NAD HEENT: normocephalic, atraumatic CHEST: comfortable work of breathing on RA CV: regular rate, well perfused ABD: soft, no tender, non distended NEURO: awake and alert, grossly intact, nonfocal, follows commands EXTR: RLE: No edema. Skin warm and pink. No tissue loss. Brisk capillary refill LLE: No edema. Skin pale. No tissue loss. Delayed capillary refill >2 seconds. Vascular Exam: R L Radial 2/2 2/2 Femoral 2/2 2/2 Popliteal 2/2 0/2 DP 2/2 Monophasic signal PT 2/2 Monophasic signal Labs: Recent Labs 05/28/24 1820 WBC 7.0 HGB 14.1 HCT 39.7* PLATELET 162 PT 10.6 INR 0.9 PTT 26 Recent Labs 05/28/24 1820 NA 135 K 3.9 CL 99 CO2 25 BUN 9* CREATININE 0.53* GLUCOSE 286* CALCIUM 9.2 Imaging & Studies: CTA \w/ short segment popliteal occlusion with distal reconstitution (OSH imaging) ASSESSMENT AND PLAN: Geovanna Dixon Jr. is a 49 y.o. male with PMH of CAD s/p 2V CABG (2012), DM, HTN, HLD, obesity, substance abuse, narcolepsy/cataplexy, who initially presented to [facility] ED with c/o 3d acute onset left calf pain. CTA revealed short segment popliteal occlusion with distal reconstitution. Clinically well-appearing in NAD. Doppler DP/PT to LLE with 2+ palpable DP/PT RLE. Complaints of pain to left calf at rest, therapeutic heparin gtt stated in ED. ELEN's and vein mapping ordered for AM. Unclear etiology of acute vs acute on chronic limb ischemia with no prior vascular studies to differentiate. Will keep him on tele overnight and plan on TTE + bubble study to rule-out A-fib, PFO as p otential sources of thrombus. Proceed with pre-operative optimization, CT chest Wednesday and anticipate OR for revasc pending clinical course. Plan: Neuro: Scheduled Tylenol, prn po Oxy, IV Dilaudid Resumed home Ritalin, Modafinil as patient states he has been taking CV: Hemodynamically normal on RA TTE w/ bubble study (ordered), pending to eval etiology of acute thrombus Cardiology consult for pre-op screening and optimization in AM Resp: Encourage IS, OOB GI: Resumed Protonix Pericolace BID, Miralax daily NPO diet (Give Meds) Renal/: Strict I/Os, monitor UOP. Monitor lytes, supplement prn Fluids: LR @ 100mL/hr Heme: ASA 81mg Hep gtt + loading dose ID: CALEB Endo: SSI, moderate scale - up titrate prn Endo consult in AM Prophy: Resp: OOB, IS DVT: Therapeutic hep gtt, SCDs, OOB Activity: AAT Dispo: Level of Care Med / Surg Code Status: Attempt Cardiopulmonary Resuscitation - Inpatient Lili Tapia MD 05/28/2024 Vascular Surgery Service Team pager #[phone] documented in this encounter ED Notes * Gaby Yoder RN - 05/28/2024 7:23 PM EDT Pt is drowsy, has history of Narcolepsy, eyes are closed between care and conversation, is easily arousable. HR is regular, history of NSTEMI, CAD w/ 2 v CABG (08/20), LLE is cold to the touch, pallor noted, patient reports the pain is burning. No pulses palpable to LLE. Pain extends up to thigh. LLE elevated on pillow. Pt reports he has not access to many of his medications for the past few weeks. Pt has only been able to take his Metformin, Methylphenidate, Omeprazole, Protriptyline and Lisinopril. He is prescribed insulin however has been unable to afford this. Pt reports Cocaine use, last use being yesterday 05.27.24. Reports that he does not use any other drugs or opiates. * Juan Santana MD - 05/28/2024 6:16 PM EDT ED Resident Note HPI: Geovanna Dixon Jr. is a 49 y.o. male pmh CAD with two-vessel CABG in 2012, hypertension, hyperlipidemia, narcolepsy, diabetes who presents to the Emergency Department as a transfer from [facility] for left foot ischemia. CT angiogram at the outside hospital showed occlusive thrombus in the left popliteal artery, exam there had neither palpable nor dopplerable dorsalis pedis pulse on the left, dopplerable posterior tibialis; delayed cap refill, cold to touch on the left. Patient is describing 3-day onset of feeling like he had a charley horse in the left calf, worsening pain from high calf all the way into the foot. ROS as per HPI Vitals: ED Triage Vitals [05/28/24 1743] BP: 125/85 Heart Rate: 83 Resp: 16 Temp: 36.4 ??C (97.5 ??F) Temp src: n/a SpO2: 96 % O2 Device: RA O2 Flow Rate (L/min): n/a Physical Exam Vitals and nursing note reviewed. Constitutional: Appearance: Normal appearance. He is normal weight. Cardiovascular: Rate and Rhythm: Normal rate and regular rhythm. Pulses: Normal pulses. Heart sounds: Normal heart sounds. Pulmonary: Effort: Pulmonary effort is normal. Breath sounds: Normal breath sounds. Abdominal: General: Abdomen is flat. Palpations: Abdomen is soft. Tenderness: There is no abdominal tenderness. Musculoskeletal: General: Tenderness present. Comments: Able to move bilateral lower extremities, sensation is intact, significant pain with palpation in popliteal to distal calf Skin: General: Skin is warm. Capillary Refill: Capillary refill takes more than 3 seconds. Left foot capillary refill greater than 3 No palpable pulses in left lower extremity, able to get dopplerable pulses in the posterior tibialis, dorsalis pedis is not dopplerable Comments: Left lower extremity cool below the knee, mildly hyperemic at the foot Neurological: General: No focal deficit present. Mental Status: He is alert and oriented to person, place, and time. Psychiatric: Mood and Affect: Mood normal. Behavior: Behavior normal. ED Course: I have reviewed labs and imaging, images and available reports, and they are significant for: ED Course as of 05/28/24 190 Sun May 28, [id number] Paged vascular surgery 1820 Vascular surgery recommending heparin drip 1821 [phone] paged 1837 Surgery to see 1837 WBC: 7.0 1836 RBC: 4.67 1836 Lactate WB: 1.6 1900 Glucose Lvl(!): 286 190 Creatinine(!): 0.53 No orders to display Procedures Assessment and Plan: 49 y.o. male transferred from [facility] for popliteal artery occlusion resulting in decreased perfusion to the left lower extremity. Patient has significant calf pain, this beengoing on for approximately 3 days, has decreased cap refill and only dopplerable pulses in the posterior tibialis, skin is clammy this is all consistent with an acute arterial occlusion. Patient's lactate was 1.6, no other significant laboratory abnormalities aside from hyperglycemia though this isconsistent with patient's inability to access his own insulin. Vascular surgery was consulted, patient was admitted and heparin was started in the emergency department. Patient remained in stable cond ition. The visit findings, diagnosis, and care plan were discussed with the patient. Juan Santana MD Resident 05/29/2453 Associated attestation - Arthur Patel DO - 05/31/2024 2:07 AM EDT ED ATTENDING ATTESTATION The patient was seen in conjunction with the resident physician. I have independently performed thekey portions of the history and physical exam. I have personally reviewed nursing notes, vital signs, and diagnostic studies including labs, imaging studies and EKGs. I have discussed the details of the case with the resident and agree with the assessment and plan as described in the resident's note, unless stated otherwise in my separate note. 49-year-old male transfer from [facility] for left foot ischemia with CT angiogram showing occlusive thrombus in left popliteal with some collaterals. Patient was started on heparin, admitted to vascular surgery service. Did this case involve critical care? No * Hortensia Paul, RN - 05/28/2024 5:44 PM EDT Sending Facility: Reason for Transfer:left popliteal occlusion Report: leg pain. Was given 4 percocets, 1g tylenol, liter of fluids and insulin. Patient has been out of diabetic medications for the last week. Vital Signs: Pulse: 105 B/P: Resp: SPO2: 98 O2 LPM: GCS: BGL: Temp: STEMI ALERT: Has the EKG been transmitted? Yes/No STROKE ALERT: Last Known Well Time: [place] Stroke Scale: + / - FAST-ED Score: TRAUMA ALERT: T9 Alert Consult Lowest Documented BP Transporting Service: Time of Departure: ETA: * María Ugalde MD - 05/28/2024 4:41 PM EDT . EM attending brief transfer acceptance note: Geovanna Dixon Jr. is a 49 y.o. who I accepted in transfer from [facility] for rule out left foot ischemia. Patient has had several days of left calf pain with no DP pulse either palpable or dopplerable and only dopplerable PT pulse. Some decrease sensation and associated pain to the left foot. Had CTA which showed a left popliteal occlusion with full reconstitution. Case was discussed with vascular who recommended ED to ED transfer to rule out clinical ischemia and review of imaging. Did not recommend heparin for transport. Cannot fully exclude DVT may require bedside DVTultrasound to consider possible DVT. Findings of note patient had mild hypomagnesemia at 1.6 will be corrected at outside hospital. Has multiple medical issues including insulin-dependent diabetes, crack cocaine use last 4 days ago. Today he is hyperglycemic but not in DKA got insulin and IV fluid at outside hospital. The EM team will contact the vascular team on arrivalTransfer and stabilization prior to transfer were discussed María Ugalde MD 05/28/24 1718 documented in this encounter Miscellaneous Notes * Plan of Care - Anuj Liu RN - 06/02/2024 6:36 PM EDT A&Ox4, VSS on RA. Patient rates pain 6-7/10, medicated per JAN. Telemetry discontinued. Discharge orders placed. This RN expressed concern about LLE and patient being discharged, MD assessed at bedside. New pain in LLE toes. Plan to continue with discharge maintained. IV removed per orders. AVSreviewed with patient. Patient did not show strong interest in reviewing AVS. This RN feels concernabout patient's ability to manage new medications and manage diabetes. Questions answered appropriately. This RN encouraged patient to be diligent about medications, dietary and lifestyle factors. Patient was taken via wheelchair to family members vehicle, with all personal belongings. Problem: Adult Inpatient Plan of Care Goal: Plan of Care Review Outcome: Ongoing (Interventions Implemented as Appropriate) Goal: Patient-Specific Goal (Individualized) Outcome: Ongoing (Interventions Implemented as Appropriate) Goal: Absence of Hospital-Acquired Illness or Injury Outcome: Ongoing (Interventions Implemented as Appropriate) Goal: Optimal Comfort and Wellbeing Outcome: Ongoing (Interventions Implemented as Appropriate) Goal: Readiness for Transition of Care Outcome: Ongoing (Interventions Implemented as Appropriate) Problem: Pain Acute Goal: Acceptable Pain Control and Functional Ability Outcome: Ongoing (Interventions Implemented as Appropriate) Problem: Fall Injury Risk Goal: Absence of Fall and Fall-Related Injury Outcome: Ongoing (Interventions Implemented as Appropriate) * Consult Note - Cynthia Carreon - 06/02/2024 10:39 AM EDT BIT Evaluation Referral source: Admission screening, BIT consult Reason for referral: Recovery support Other: Substance use Relevant history: Geovanna Dixon Jr. is a 49 y.o. male with PMH of CAD s/p 2V CABG (2012), DM, HTN, HLD, obesity, substance abuse, narcolepsy/cataplexy, who initially presented to [facility] ED with c/o 3d acute onset left calf pain. CTA revealed short segment popliteal occlusion with distal reconstitution. Assessment: PT is relieved that surgery isn't needed. RC empathically responded and actively listened to PT ventilate about pain, narcolepsy and difficulty staying asleep at night. PT discussed substance use concerns in his family. PT is passive in treatment. PT reports having no cravings for cocaine at this time. Interventions delivered: Other: peer support Plan: PT encouraged to consider engagement [facility] Time spent with the patient (min):15 minutes Time spent on case coordination (min): 15 minutes * Plan of Care - Lizett Simmons RN - 06/02/2024 4:39 AM EDT OUTCOME EVALUATION NOTE: OUTCOME SUMMARY: Pt A&Ox4 throughout shift. Pt tolerating CC diet w/out complaints of N/V. Pt receiving heparin and abx via L PIV, tolerating well. UFH therapeutic upon check with AM labs, continues [id number]/hr. Pt continues on Telemetry, noted NSR every 4 hrs. Pt did ambulate to BR during shift, toleratedwell. Pt w/LLE pain, between knee and foot, tolerating w/pain relieved with prn pain medication. Pt voiding QS via BR/urinal no c/o pain. Pt has not moved bowels over this shift. Pt able to rest between care. PLAN MOVING FORWARD: Monitor Pain, Monitor I&O, Encourage Ambulation, Monitor PO tolerance, Maintain Safety, Discharge Planning INDIVIDUALIZED FALL PREVENTION INTERVENTIONS: Patient-specific fall risk factors per assessment: [current deficits]: Narcotics, Pain with movement/ambulation. Assistance [level of assistance required for transfers and ambulation]: IV pole, Independent, Non-skid shoes/slippers Supervision [direct monitoring required during toileting and ADLs]: Eyes on Surveillance [continuous indirect monitoring]: Purposeful rounding, Call saucedo in reach, Direct observation Patient-specific fall prevention interventions for sensory deficits provided, if applicable: [X] Yes Light adjusted for task/safety CPG GOAL OUTCOME EVALUATION: Problem: Adult Inpatient Plan of Care Goal: Plan of Care Review Outcome: Ongoing (Interventions Implemented as Appropriate) Goal: Patient-Specific Goal (Individualized) Outcome: Ongoing (Interventions Implemented as Appropriate) Goal: Absence of Hospital-Acquired Illness or Injury Outcome: Ongoing (Interventions Implemented as Appropriate) Goal: Optimal Comfort and Wellbeing Outcome: Ongoing (Interventions Implemented as Appropriate) Goal: Readiness for Transition of Care Outcome: Ongoing (Interventions Implemented as Appropriate) Problem: Pain Acute Goal: Acceptable Pain Control and Functional Ability Outcome: Ongoing (Interventions Implemented as Appropriate) Problem: Fall Injury Risk Goal: Absence of Fall and Fall-Related Injury Outcome: Ongoing (Interventions Implemented as Appropriate) * Plan of Care - Anuj Liu RN - 06/01/2024 5:17 PM EDT OUTCOME EVALUATION NOTE: OUTCOME SUMMARY: A&Ox4, VSS on RA. Patient reports 6/10 pain controlled with scheduled and PRN meds, stand up comedian to be found in MAR. Q4 neurovascular assessments unchanged, redness to left calf and patient reports pain between knee and ankle on LLE with numbness and tingling. Patient was started on IV cefazolin today. Heparin gtt therapeutic and maintained at 30 units/hr, per orders. Voiding urine adequately inurinal. Up with SBA to BR. No BM this shift. Blood sugar checks elevated, insulin administered per parameters in JAN. Telemetry monitoring maintained, NSR. Will continue to monitor and update MD as needed. Plan of care is ongoing. Problem: Adult Inpatient Plan of Care Goal: Plan of Care Review Outcome: Ongoing (Interventions Implemented as Appropriate) Goal: Patient-Specific Goal (Individualized) Outcome: Ongoing (Interventions Implemented as Appropriate) Goal: Absence of Hospital-Acquired Illness or Injury Outcome: Ongoing (Interventions Implemented as Appropriate) Goal: Optimal Comfort and Wellbeing Outcome: Ongoing (Interventions Implemented as Appropriate) Goal: Readiness for Transition of Care Outcome: Ongoing (Interventions Implemented as Appropriate) Problem: Pain Acute Goal: Acceptable Pain Control and Functional Ability Outcome: Ongoing (Interventions Implemented as Appropriate) Problem: Fall Injury Risk Goal: Absence of Fall and Fall-Related Injury Outcome: Ongoing (Interventions Implemented as Appropriate) * Plan of Care - Maribel Lazo RN - 06/01/2024 6:50 AM EDT No acute signs of distress noted overnight Problem: Adult Inpatient Plan of Care Goal: Plan of Care Review Outcome: Ongoing (Interventions Implemented as Appropriate) Goal: Patient-Specific Goal (Individualized) Outcome: Ongoing (Interventions Implemented as Appropriate) Goal: Absence of Hospital-Acquired Illness or Injury Outcome: Ongoing (Interventions Implemented as Appropriate) Goal: Optimal Comfort and Wellbeing Outcome: Ongoing (Interventions Implemented as Appropriate) Goal: Readiness for Transition of Care Outcome: Ongoing (Interventions Implemented as Appropriate) Problem: Pain Acute Goal: Acceptable Pain Control and Functional Ability Outcome: Ongoing (Interventions Implemented as Appropriate) Problem: Fall Injury Risk Goal: Absence of Fall and Fall-Related Injury Outcome: Ongoing (Interventions Implemented as Appropriate) * Plan of Care - Anuj Liu RN - 05/31/2024 6:59 PM EDT OUTCOME EVALUATION NOTE: OUTCOME SUMMARY: A&Ox4, VSS on RA. Pain controlled with scheduled and PRN meds, stand up comedian to be found in JAN. Patient went off-unit this morning for duplex, pre-medicated per orders. Heparin gtt running at 30 units/hr, per orders. Family in to visit at bedside this afternoon. Voiding urine adequately in urinal.Up with SBA to BR. No BM this shift. Q4 neurovascular checks unchanged; patient reports severe painto left calf where redness is noted. Blood sugar checks elevated, insulin administered per parameters in JAN. Telemetry monitoring maintained, NSR. Will continue to monitor and update MD as needed. Plan of care is ongoing. Problem: Adult Inpatient Plan of Care Goal: Plan of Care Review Outcome: Ongoing (Interventions Implemented as Appropriate) Goal: Patient-Specific Goal (Individualized) Outcome: Ongoing (Interventions Implemented as Appropriate) Goal: Absence of Hospital-Acquired Illness or Injury Outcome: Ongoing (Interventions Implemented as Appropriate) Goal: Optimal Comfort and Wellbeing Outcome: Ongoing (Interventions Implemented as Appropriate) Goal: Readiness for Transition of Care Outcome: Ongoing (Interventions Implemented as Appropriate) Problem: Pain Acute Goal: Acceptable Pain Control and Functional Ability Outcome: Ongoing (Interventions Implemented as Appropriate) Problem: Fall Injury Risk Goal: Absence of Fall and Fall-Related Injury Outcome: Ongoing (Interventions Implemented as Appropriate) * Plan of Care - Maribel Lazo RN - 05/31/2024 4:50 AM EDT Patient did well overnight, ambulated to the restroom with walker and standby assistance, voided well, no bowel movement noted overnight, patient still with severe complaints of pain, prn/scheduled medications administered, left calf with slight redness/swelling/painful to touch, Heparin drip infusing at 1600 units, therapeutic UFH due with daily labs in the am, VSS, no acute signs of distress noted overnight Problem: Adult Inpatient Plan of Care Goal: Plan of Care Review Outcome: Ongoing (Interventions Implemented as Appropriate) Goal: Patient-Specific Goal (Individualized) Outcome: Ongoing (Interventions Implemented as Appropriate) Goal: Absence of Hospital-Acquired Illness or Injury Outcome: Ongoing (Interventions Implemented as Appropriate) Goal: Optimal Comfort and Wellbeing Outcome: Ongoing (Interventions Implemented as Appropriate) Goal: Readiness for Transition of Care Outcome: Ongoing (Interventions Implemented as Appropriate) Problem: Pain Acute Goal: Acceptable Pain Control and Functional Ability Outcome: Ongoing (Interventions Implemented as Appropriate) Problem: Fall Injury Risk Goal: Absence of Fall and Fall-Related Injury Outcome: Ongoing (Interventions Implemented as Appropriate) * Consult Note - Cynthia Carreon - 05/30/2024 2:55 PM EDT BIT Evaluation Referral source: Follow up Reason for referral: Substance Use Disorder - other than alcohol or opioids Other: BIT consult Relevant history: Geovanna Dixon Jr. is a 49 y.o. male with PMH of CAD s/p 2V CABG (2012), DM, HTN, HLD, obesity, substance abuse, narcolepsy/cataplexy, who initially presented to [facility] ED with c/o 3d acute onset left calf pain. CTA revealed short segment popliteal occlusion with distal reconstitution. Assessment: RC introduced self and role. PT states that wants to quit smoking crack. PT appears to be motivatedto abstain from crack because of his children. PT states that his children are worried about him, even thought hey are older they still are affected. PT tells RC that his children think that he has quit for good. RC asked PT If he is concerned about other substances being added to the cocaine/crack. PT tells RC about an incident in which he overdosed from fentanyl being in the crack. PT tells RC that he doesn't think he needs rehab, mainly because he can stop using. PT is unsure why he always ends up smoking crack after he has been without it for some time. Interventions delivered: Other: Peer support Plan: RC will follow up with PT duration of stay. Time spent with the patient (min):30 minutes Time spent on case coordination (min): 15 minutes * Plan of Care - Guanako Madison RN - 05/30/2024 11:26 AM EDT OUTCOME EVALUATION NOTE: OUTCOME SUMMARY: Pt c/o significant pain in LLE d/t blockage. PRN's given as ordered. Blood sugars poorly controlled. Pt got a stress test & CT w/ contrast done. Plan still developing. Heparin running at therapeutic rate. PLAN MOVING FORWARD: CT scan to eval LLE INDIVIDUALIZED FALL PREVENTION INTERVENTIONS: Patient-specific fall risk factors per assessment: [current deficits]: Limited mobility in LLE d/t pain. Assistance [level of assistance required for transfers and ambulation]: STBY Supervision [direct monitoring required during toileting and ADLs]: STBY Surveillance [continuous indirect monitoring]: Purposeful rounding, call light within reach Patient-specific fall prevention interventions for sensory deficits provided, if applicable: [X] N/A CARE PLAN GOAL OUTCOME EVALUATION: Problem: Adult Inpatient Plan of Care Goal: Plan of Care Review Outcome: Ongoing (Interventions Implemented as Appropriate) Goal: Patient-Specific Goal (Individualized) Outcome: Ongoing (Interventions Implemented as Appropriate) Goal: Absence of Hospital-Acquired Illness or Injury Outcome: Ongoing (Interventions Implemented as Appropriate) Goal: Optimal Comfort and Wellbeing Outcome: Ongoing (Interventions Implemented as Appropriate) Goal: Readiness for Transition of Care Outcome: Ongoing (Interventions Implemented as Appropriate) Problem: Pain Acute Goal: Acceptable Pain Control and Functional Ability Outcome: Ongoing (Interventions Implemented as Appropriate) Problem: Fall Injury Risk Goal: Absence of Fall and Fall-Related Injury Outcome: Ongoing (Interventions Implemented as Appropriate) * Consult Note - Henok Bales MD - 05/30/2024 8:39 AM EDT Images from the original note were not included. [facility] [place] [address] [place] [id number] CARDIOLOGY CONSULT NOTE Date of Consultation: 05/29/2024 Admit Date: 05/28/2024 Hospital Day 1 day Reason for Consult: preoperative Active Problems: Active Hospital Problems Diagnosis Critical limb ischemia of left lower extremity Resolved Hospital Problems No resolved problems to display. ID: Geovanna Dixon Jr. is a 49 y.o. male with a past medical history of CAD s/p 2V CABG (2012) with known patent MARTINEZ-LAD, occluded SVG-RPDA, and PCI to LCX, DM, HTN, HLD, obesity, substance abuse, narcolepsy/cataplexy, who initially presented to [facility] ED with c/o 3d acute onset left calf pain. CTA revealed short segment popliteal occlusion with distal reconstitution. Cardiology consulted regardingpreoperative risk stratification. Brief HPI: He has a history of CAD with initial presentation in 2011. At the time, coronary angiogram notable for 85% LAD, 65% LCS, 70% RCA. TTE at the time was normal with preserved WMA. No valve disease. He underwent CABG x 2 with MARTINEZ-LAD and SVG-RPDA. He was admitted for NSTEMI in 2012, at the time showed NETWORK TECHNOLOGY INSTRUCTOR of proximal LAD, NETWORK TECHNOLOGY INSTRUCTOR proximal right, 90% LCX. MARTINEZ-LAD patent and SVG-RPDA occluded.He underwent PCI to the LCX at that time. Since then, he has been relatively lost to follow up. He has had no recurrent chest pains over the years. Specifically, he has had no recent chest pain or SOB. He has had no leg swelling, orthopnea, etc. He is on disability due to narcolepsy. He does not kno w the medications he takes daily. TTE this admission with LVEF 47%, inferior wall hypokinesis, normal RV function, no valve disease. Cardiology consulted regarding preoperative risk assessment for planned LE revascularization. Inpatient Medications: potassium chloride 10 mEq Intravenous Q1H sodium chloride 0.9 % (flush) 5 mL Intravenous BID senna-docusate 2 tablet Oral BID acetaminophen 975 mg Oral Q6H JOSE nicotine 1 patch Transdermal Daily And Patch Verification 1 patch Transdermal BID aspirin EC 81 mg Oral Daily benzonatate 100 mg Oral TID insulin lispro 1-6 Units Subcutaneous Q4H JOSE venlafaxine XR 225 mg Oral Daily with breakfast methylphenidate 20 mg Oral TID AC atorvastatin 80 mg Oral QPM modafiniL 200 mg Oral BID cholecalciferoL 1,000 Units Oral Daily pantoprazole EC 40 mg Oral Daily heparin (porcine) infusion 1,600 Units/hr (05/29/24 0941) lactated Ringers 1,000 mL (05/29/24 0941) Physical Exam: Last value Range last 8 hrs Temperature Temp: 36.4 ??C (97.5 ??F) Temp: [36.4 ??C (97.5 ??F)] Heart Rate Heart Rate: 84 Heart Rate: [84] Blood Pressure BP: 119/76 BP: (119-127)/(76-85) Respiratory Rate Resp: 17 Resp: [17] SpO2 SpO2: 97 % SpO2: [95 %-97 %] Intake/Output Summary (Last 24 hours) at 05/29/2024 1020 Last data filed at 05/29/2024 0749 Gross per 24 hour Intake 726 ml Output 825 ml Net -99 ml Wt & BMI By Encounter Date Flowsheet Row ED to Hosp-Admission (Current) from 05/28/2024 in Surgical Unit Level 4 Wing D at [facility] Office Visit from 03/08/2012 in Cardiothoracic Surgery Weight 101.6 kg (224 lb) 1 05/29/2024 0020 122.9 kg (271 lb) 1 03/08/2012 1023 BMI 33 1 05/28/2024 1743 38.4 1 03/08/2012 1023 General: Pleasant male in NAD. Cardiac: RRR. Normal S1, S2. No murmur. PMI nondisplaced. JVP visualized at just above clavicle. Respiratory: Adequate air entry throughout. Clear lung sounds. Abdominal: Soft and non-tender with no organomegaly. Normal bowel sounds. Extremities: Warm lower extremities, no bilateral lower extremity pitting edema, pulse on DP/PT on left, 2+ on right. Labs reviewed and notable for: Hemoglobin 13.3 Sodium 132, creatinine 0.56 Hemoglobin A1c markedly elevated at 12.6 Total cholesterol 218, HDL 24, triglycerides 733, LDL 107 in 2013 Relevant imaging: ECG (05/30/24): Sinus rhythm, inferior infarct pattern Transthoracic echocardiogram 05/30/24: -Left ventricular systolic function is mildly reduced. The left ventricular ejection fraction is 47% by Stacy's biplane. There is akinesis of the inferior wall. -The right ventricle is of normal size. Right ventricular systolic function is normal. -No significant valvular disease noted on this study. -Compared with the previous echo performed on 08/21/23, the ejection fraction has decreased. Assessment/Recommendations: Geovanna Dixon Jr. is a 49 y.o. male with a past medical history of CAD s/p 2V CABG (2012) with known patent MARTINEZ-LAD, occluded SVG-RPDA, and PCI to LCX, DM, HTN, HLD, obesity, substance abuse, narcolepsy/cataplexy, who initially presented to [facility] ED with c/o 3d acute onset left calf pain. CTA revealed short segment popliteal occlusion with distal reconstitution. Cardiology consulted regarding preoperative risk stratification. Vascular surgery plans for surgical revascularization. He has a notable cardiac history listed above, transthoracic echocardiogram notable for mildly reduced LVEF with inferior wall hypokinesis. 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 He has no anginal symptoms. Given the fact that he cannot perform 4 METS, out of an abundance of caution we will proceed with pharmacologic nuclear stress test today. Our expectation is that there will be no ischemia and he will be optimized for surgical procedure. He should be on at minimum aspirin 81 mg, high intensity statin (repeat lipid panel while inpatient). He would also benefit fromJardiance on discharge. Losartan 50 mg and metoprolol succinate 25 mg would both be reasonable additions given his hemodynamics and mildly reduced LV systolic function. Case discussed with Dr. Patel. Henok Bales MD Cardiovascular Medicine Fellow 05/29/2024 Associated attestation - Gallo Patel MD - 05/30/2024 3:49 PM EDT I have seen the patient and reviewed the fellow's above history and I agree with the details as written. The assessment and plan were formulated in discussion with me and I agree with them as documented. * Plan of Care - Maribel Lazo RN - 05/30/2024 6:44 AM EDT Patient did well overnight, ambulated to the restroom with walker and standby assistance, voided well, no bowel movement noted overnight, left foot remains unchanged, Heparin drip infusing at 1600 units, therapeutic UFH due with daily labs in the am, VSS, no acute signs of distress noted overnight Problem: Adult Inpatient Plan of Care Goal: Plan of Care Review Outcome: Ongoing (Interventions Implemented as Appropriate) Goal: Patient-Specific Goal (Individualized) Outcome: Ongoing (Interventions Implemented as Appropriate) Goal: Absence of Hospital-Acquired Illness or Injury Outcome: Ongoing (Interventions Implemented as Appropriate) Goal: Optimal Comfort and Wellbeing Outcome: Ongoing (Interventions Implemented as Appropriate) Goal: Readiness for Transition of Care Outcome: Ongoing (Interventions Implemented as Appropriate) Problem: Pain Acute Goal: Acceptable Pain Control and Functional Ability Outcome: Ongoing (Interventions Implemented as Appropriate) Problem: Fall Injury Risk Goal: Absence of Fall and Fall-Related Injury Outcome: Ongoing (Interventions Implemented as Appropriate) * Consult Note - Anabel Castelan MD - 05/29/2024 1:05 PM EDT Diabetes Management Team Inpatient Consult Date of Consultation: 05/29/2024 Consult Requested by: Vibha Benson. Vascular Surgery Reason for Consultation: Geovanna Dixon Jr. is a 49 y.o. male with PMH significant for CAD s/p 2V CABG (2012), DM, HTN, HLD, obesity, substance abuse, narcolepsy/cataplexy who initially presented to [facility] ED with complaints of 3 days of acute left calf pain. CTA revealed short segment popliteal occlusion with distal reconstitution. He was transferred to [facility] on 05/28/2024 for further management. We are being consulted to assist with diabetes management for poorly controlled DM and to provide a review of snf diabetes care. Diabetes History: Geovanna Dixon Jr. has had diabetes for over 15 years. He shares he was diagnosed in his mid 30s. [place] have a family history of diabetes in his mother, maternal uncle and fathers side of the family. Initially diagnosed with prediabetes and an A1C of 6.0% however quickly about one year later, A1C increased to 10%. Currently between providers and has been out of trulicity and jardiance for the last month. Last use of insulin over a week ago. He checks his finger sticks at home when on medication which average 200-250s. When he is compliant with medications, he feels better overall but struggles with self reported laziness in picking up his medications and following up with providers. Current outpatient diabetes regimen: Diabetes Provider: Dr. Lugo but this provider recently retired and patient has not found new one yet Medications: 65 U Lantus daily at bedtime (last use over a week ago), metformin 1000 mg BID, Jardiance 25 mg daily (last use over one month ago), Trulicity 1.5 mg weekly (last use over one month ago). Monitoring is done a few times a day when on medications with finger sticks Most recent HA1c was done on 12.6% suggesting an average glucose of 316 mg/dL for the past 6-8 weeks. Typical diet is: 3 meals and 1-2 snacks a day Breakfast- eggs, morris Lunch- sandwiches Supper- protein with starch and vegetables Drinks - drinks approx 6 cans of mountain dew per day, minimal water, no alcohol use Typical exercise regimen is walks but not regularly Trouble with hypoglycemia no problems with hypoglycemia Diabetes Complications Status: Eyes: Yes, has worsening vision when his blood glucose is not controlled Kidneys: None Feet: Poor feet/nail hygiene Sensory: Mild peripheral neuropathy lower extremities Autonomic: None Cardiac: Yes Current Hospital Diabetes Care: Medications: Lispro moderate sliding scale q 4 hrs Monitoring: CBGs q 4 hrs Diet: Carb Control Diet 60/60/75 ROS: (+) for increased thirst, urination, changes in vision (-) for Constitutional: No recent weight change Eyes: + recent vision change ENT: No dysphagia, dental issues Cardiovascular: No chest pain Respiratory: No wheezing , shortness of breath GI: No nausea, vomiting, diarrhea, constipation : No frequent urinary tract infections Neurological: No weakness or numbness Skin/Feet: No current diabetic foot ulcers/open area PMH Past Medical History: Diagnosis Date Depression Hyperlipidemia Hypertension Narcolepsy Obesity Current Hospital Medications: sodium chloride 0.9 % (flush) 5 mL Intravenous BID senna-docusate 2 tablet Oral BID acetaminophen 975 mg Oral Q6H JOSE nicotine 1 patch Transdermal Daily And Patch Verification 1 patch Transdermal BID aspirin EC 81 mg Oral Daily benzonatate 100 mg Oral TID insulin lispro 1-6 Units Subcutaneous Q4H JOSE venlafaxine XR 225 mg Oral Daily with breakfast methylphenidate 20 mg Oral TID AC atorvastatin 80 mg Oral QPM modafiniL 200 mg Oral BID cholecalciferoL 1,000 Units Oral Daily pantoprazole EC 40 mg Oral Daily Infusions: heparin (porcine) infusion 1,500 Units/hr (05/29/24 1113) PRN: sodium chloride 0.9 % (flush), lidocaine, heparin (porcine) infusion AND heparin (porcine), oxyCODONE, HYDROmorphone, glucose 40% oral geL OR dextrose OR glucagon Allergy: No Known Allergies Social history: Social History Tobacco Use Smoking status: Every Day Current packs/day: 0.00 Average packs/day: 1 pack/day for 25.0 years (25.0 ttl pk-yrs) Types: Cigarettes Start date: 12/28/1986 Last attempt to quit: 12/28/2011 Years since quittin.4 Substance Use Topics Alcohol use: No Drug use: No Family history: Family History Problem Relation Age of Onset Coronary Artery Disease Mother Coronary Artery Disease Paternal Aunt Coronary Artery Disease Paternal Uncle Coronary Artery Disease Paternal Grandmother Coronary Artery Disease Paternal Grandfather Vitals Last value Range last 24 hrs Temperature Temp: 36.4 ??C (97.5 ??F) Temp: [36.3 ??C (97.3 ??F)-36.7 ??C (98.1 ??F)] Heart Rate Heart Rate: 84 Heart Rate: [76-85] Blood Pressure BP: 119/76 BP: (113-127)/(72-90) Respiratory Rate Resp: 17 Resp: [14-22] SpO2 SpO2: 97 % SpO2: [93 %-97 %] Physical Exam: Gen: NAD, talking in clear sentences. Laying in bed comfortably HEENT: no LAD, oral mucus membranes moist no obvious inflammation Heart: RRR, no murmurs. Radial pulses +2. Lungs: CTAB, breathing non-labored. No wheezes or rhonchi. Good aeration Abd: Soft, non-distended, non-tender x4 quadrants, +bs Extremities: left calf swollen, hyperpigmented and tender area SKIN: No open areas or redness to both feet, sensation preserved. Neuro: Moving all extremities. Grossly non-focal Labs: Recent Results (from the past 24 hour(s)) POCT Glucose Result Value Ref Range POC Glucose 262 (H) 65 - 199 mg/dL Basic Metabolic Panel (non-fasting) Result Value Ref Range Glucose Lvl 286 (H) 65 - 199 mg/dL BUN 9 (L) 10 - 20 mg/dL Creatinine 0.53 (L) 0.80 - 1.50 mg/dL Sodium 135 135 - 145 mmol/L Potassium 3.9 3.5 - 5.0 mmol/L Chloride 99 98 - 107 mmol/L CO2 25 22 - 31 mmol/L Anion Gap 11 5 - 15 mmol/L Calcium 9.2 8.5 - 10.5 mg/dL Estimated GFR 122 >=60 mL/min/1.73 m?? Prothrombin Time Result Value Ref Range PT 10.6 9.4 - 12.5 sec INR 0.9 APTT Result Value Ref Range PTT 26 25 - 37 sec Lactate, whole blood, send to lab ([facility] Result Value Ref Range Lactate WB 1.6 0.5 - 2.2 mmol/L Type and screen ([facility] Result Value Ref Range ABORH Type A POSITIVE Patient BB History Found Expires at 2359 on: 05-31-2024 Ab Screen Interp Negative Hemogram Result Value Ref Range WBC 7.0 4.0 - 9.5 x10(3)/mcL RBC 4.67 4.58 - 5.54 x10(6)/mcL Hemoglobin 14.1 13.7 - 16.5 g/dL Hematocrit 39.7 (L) 40.5 - 48.5 % MCV 85.0 82.9 - 93.1 fL MCH 30.2 27.5 - 32.1 pg MCHC 35.5 32.0 - 35.7 g/dL Platelets 162 145 - 357 x10(3)/mcL RDWSD 35.3 (L) 36.0 - 45.0 fL RDWCV 11.5 11.4 - 13.8 % MPV 10.8 7.6 - 12.9 fL nRBC % Auto 0.0 % nRBC Abs Auto 0.000 0.000 - 0.000 x10(3)/mcL Differential, Automated Result Value Ref Range Neutrophils % 56.3 % Neutr Abs (ANC) 3.94 1.70 - 6.10 x10(3)/mcL Lymphocytes % 32.7 % Lymphocytes Abs 2.3 0.9 - 3.2 x10(3)/mcL Monocytes % 6.7 % Monocyte Abs 0.5 0.3 - 0.9 x10(3)/mcL Eosinophils % 3.0 % Eosinophils Abs 0.2 0.0 - 0.4 x10(3)/mcL Basophils % 1.0 % Basophils Abs 0.1 0.0 - 0.1 x10(3)/mcL Immature Gran % 0.30 % Marie Gran Abs 0.02 0.00 - 0.04 x10(3)/mcL Gold Tube HOLD Result Value Ref Range Gold Hold Sample in lab. ABORH Recheck Status Result Value Ref Range ABORH Type Recheck Completed Type and Screen Validity Result Value Ref Range T&S only valid at [facility] Hosp POCT Glucose Result Value Ref Range POC Glucose 253 (H) 65 - 199 mg/dL Basic Metabolic Panel (non-fasting) Result Value Ref Range Glucose Lvl 251 (H) 65 - 199 mg/dL BUN 11 10 - 20 mg/dL Creatinine 0.52 (L) 0.80 - 1.50 mg/dL Sodium 138 135 - 145 mmol/L Potassium 3.3 (L) 3.5 - 5.0 mmol/L Chloride 102 98 - 107 mmol/L CO2 25 22 - 31 mmol/L Anion Gap 11 5 - 15 mmol/L Calcium 9.0 8.5 - 10.5 mg/dL Estimated GFR 123 >=60 mL/min/1.73 m?? Magnesium Result Value Ref Range Magnesium 0.77 0.69 - 1.07 mmol/L Phosphorus Result Value Ref Range Phosphorus 2.5 2.5 - 4.5 mg/dL Heparin (unfractionated) Level Result Value Ref Range Heparin UFH Level 1.19 (CRIT) IU/mL Hemogram Result Value Ref Range WBC 10.3 (H) 4.0 - 9.5 x10(3)/mcL RBC 4.74 4.58 - 5.54 x10(6)/mcL Hemoglobin 14.2 13.7 - 16.5 g/dL Hematocrit 40.4 (L) 40.5 - 48.5 % MCV 85.2 82.9 - 93.1 fL MCH 30.0 27.5 - 32.1 pg MCHC 35.1 32.0 - 35.7 g/dL Platelets 158 145 - 357 x10(3)/mcL RDWSD 35.4 (L) 36.0 - 45.0 fL RDWCV 11.4 11.4 - 13.8 % MPV 10.6 7.6 - 12.9 fL nRBC % Auto 0.0 % nRBC Abs Auto 0.000 0.000 - 0.000 x10(3)/mcL Differential, Automated Result Value Ref Range Neutrophils % 54.8 % Neutr Abs (ANC) 5.63 1.70 - 6.10 x10(3)/mcL Lymphocytes % 34.0 % Lymphocytes Abs 3.5 (H) 0.9 - 3.2 x10(3)/mcL Monocytes % 6.7 % Monocyte Abs 0.7 0.3 - 0.9 x10(3)/mcL Eosinophils % 3.3 % Eosinophils Abs 0.3 0.0 - 0.4 x10(3)/mcL Basophils % 0.9 % Basophils Abs 0.1 0.0 - 0.1 x10(3)/mcL Immature Gran % 0.30 % Marie Gran Abs 0.03 0.00 - 0.04 x10(3)/mcL Hemoglobin A1c Result Value Ref Range Hemoglobin A1C 12.6 (H) 4.3 - 5.6 % Est Avg Gluc 316 mg/dL POCT Glucose Result Value Ref Range POC Glucose 214 (H) 65 - 199 mg/dL POCT Glucose Result Value Ref Range POC Glucose 218 (H) 65 - 199 mg/dL POCT Glucose Result Value Ref Range POC Glucose 157 65 - 199 mg/dL Heparin (unfractionated) Level Result Value Ref Range Heparin UFH Level 0.76 IU/mL POCT Glucose Result Value Ref Range POC Glucose 249 (H) 65 - 199 mg/dL Assessment: Patient is a 49 y.o. years old male with PMH significant for DM (Last A1C of 12.6%) as well as CAD s/p 2V CABG (2012), DM, HTN, HLD, obesity, substance abuse, narcolepsy/cataplexy who was admitted on05/28/2024 for 3 days of acute left calf pain found to have short segment popliteal occlusion with distal reconstitution on CTA. While at [facility] patient found to have blood glucose approx 490-500. He was transferred to [facility] on 05/28/2024 for further management. We are being consulted to assist with diabetes management for poorly controlled DM and to provide a review of snf diabetes care. Diabetes is not currently well controlled in the setting of medication non adherence, currently between medical providers and poor nutrition. There is also a concern of whether Geovanna has type 2 DM vs late autoimmune diabetes given diagnosis at young age. Plan: 1. Start Lantus 15 U starting now and in AM 2. Continue Lispro correctional moderate sliding scale q4 hours 3. Start Meal-associated Lispro with an ICR 1:8 for meals and snacks (range 0-10) 4. Continue consistent carbohydrate diet 5. Would obtain OUSMANE antibody, islet cell antibody and TSH 6. Would benefit from diabetes education as well as nutritional counseling nursing home diabetes care: Medications - Outpatient treatment regimen recommendations pending based on the hospital course. Monitoring - continue BG tid ac & hs Diet - low fat/low carb diet Exercise - weight-bearing exercise 30 min/day, as tolerated Provider - patient requires establishment with new PCP or detacher for continued medication management Thank you for allowing us to provide care for your patient. Anabel Castelan MD [facility] Endocrinology Associated attestation - Karen Reno MD - 05/30/2024 5:59 PM EDT Patient evaluated by me and Dr. Castelan. I agree with her above assessment and plan. Patient with uncontrolled DM , A1C of 12.6%, CAD s/p 2V CABG with 3 days of acute left calf pain found to have popliteal occlusion. Will start him on Lantus insulin with more aggressive correction scale and get OUSMANE and ISS ab to assess what type of diabetes he really have. Other as per fellow. Karen Reno MD Professor * Initial Assessments - Tanmay Andrade MSW - 05/29/2024 10:56 AM EDT Office of Care Management Initial Assessment DENISSE Sharma reviewed record and discussed patient with Care Team. Source of Information: Team, bedside nurse, medical record, and Patient Introduced self/reviewed role; services accepted. Admitted From: Home Reason for Hospitalization: complaints of severe pain in left leg/foot Past medical History: Past Medical History: Diagnosis Date Depression Hyperlipidemia Hypertension Narcolepsy Obesity Hospitalizations Within the Past 30 Days: no previous admission in last 30 days Current Decision-Making Capacity: Self If AD's have not been completed the following surrogate would be surrogate decision maker per [place] surrogate decision making law. (Only good for 180 days) Any patient receiving care in [place] must abide by [place] law. The hierarchy for surrogate decision making is: (a) Patient???s spouse or civil union partner unless there is a divorce proceeding, separation agreement, or restraining order limiting that person???s relationship with the patient. (b) Any adult son or daughter of the patient. (c) Either parent of the patient. (d) Any adult brother or sister of the patient. (e) Any adult grandchild of the patient. (f) Any grandparent of the patient. (g) Any adult aunt, uncle, niece, or nephew of the patient. (h) A close friend of the patient. (i) The agent with financial power of criminal attorney or a conservator appointed in accordance with RSA 464-A. (j) The guardian of the patient???s estate. Advance Care Planning: Attempt Cardiopulmonary Resuscitation - Inpatient <no information> -Advanced Directive: No, need to discuss Current Coping/Education/Information Needs: Pt was experiencing increase pain in LLE. Pt requested pain mangement from nursing during assessment. Current Functional Ability: Independent Functional Status Prior to Admission: Independent Prior ADLs & IADLs: Independent with all ADLs & IADLs Home Environment: Others in the home: sibling(s), pet(s). Current Living Arrangements: home/apartment/condo. Accessibility Concerns:Single level with all amenities accessible on level. 1-2 steps to enter. In the last 12 months, was there a time when you were not able to pay the mortgage or rent on time?: No In the past 12 months, how many times have you moved where you were living?: 1 At any time in the past 12 months, were you homeless or living in a mcc (including now)?: No In the past 12 months has the electric, gas, oil, or water company threatened to shut off services in your home?: No Within the past 12 months, you worried that your food would run out before you got the money to buymore.: Never true Within the past 12 months, the food you bought just didn't last and you didn't have money to get more.: Never true Resource / Environmental Concerns: Resource/Environmental Concerns: none In the past 12 months, has lack of transportation kept you from medical appointments or from getting medications?: No In the past 12 months, has lack of transportation kept you from meetings, work, or from getting things needed for daily living?: No Current DME: none Home Address confirmed as: [address] [facility] [address] Social & Family Supports: All names listed below confirmed with patient as current and correct Extended Emergency Contact Information Primary Emergency Contact: Alonzo Dixon Relation: Spouse Secondary Emergency Contact: Cony Barrientos Relation: Child Current Care Provided by: self Provides Primary Care For: no one Caregiver if needed: none Quality of Family relationships: helpful, involved Community Resources being provided currently: none Behavioral Health History: Pt did not endorse hx or current mental health needs or diagnosis Substance Use/Abuse confirmed: Social History Tobacco Use Smoking Status Every Day Current packs/day: 0.00 Average packs/day: 1 pack/day for 25.0 years (25.0 ttl pk-yrs) Types: Cigarettes Start date: 12/28/1986 Last attempt to quit: 12/28/2011 Years since quittin.4 Smokeless Tobacco Not on file In the past year have you used an illegal drug or used a prescription medication for non-medical reasons?: Yes DAST Score: 4 0 No problems reported 1-2 Low level 3-5 Moderate level 6-8 Substantial level 9- 10 Severe level In the past year have you had 5 or more drinks a day containing alcohol?: No 0 to 7 points: Low risk 8 to 15 points: Medium risk 16 to 19 points: High risk 20 to 40 points: Addiction likely Other Pertinent/Service Specific Information: Health/Prescription Coverage: Primary Insurance: [employer]ED MEDICARE Payor: [employer] MEDICARE / Plan: [employer] MEDICARE PPO / Product Type: *No Product type* / Secondary Insurance: N/A ONLY if patient has Medicare A&B - Does this patient have secondary insurance?: No ; Why not?: Costs Prescription Coverage: Yes Preferred Pharmacy: [id number] - [address] [place] [id number] Status: Patient is a : No Primary Care Provider listed: Guanako Gusman MD (Inactive) [phone] Patient/Caregiver Goals of Treatment: How long will I be in the hospital? What will happen while I'm here? Potential Needs for Transition of Care: none Agency Referrals: Not Applicable Transportation: no concerns Transportation Anticipated: family or friend will provide Concerns to be Addressed: care coordination/care conferences, discharge planning Assessment: Patient is admitted to vascular surgery service for complications of critical limb ischemia of left lower extremity Plan going forward: Proceed with pre-operative optimization, Echo today, CT chest Wednesday and anticipate OR for revascularization pending clinical course. Care Management team will continue to follow and assist with discharge planing and coordination of care as indicated. DENISSE Astorga Care Management #[id number] * Plan of Care - Guanako Madison RN - 05/29/2024 10:00 AM EDT OUTCOME EVALUATION NOTE: OUTCOME SUMMARY: Pt c/o significant pain in LLE d/t blockage. PRN's given as ordered. Blood sugars poorly controlled, new insulin orders placed, diabetes team at bedside to talk with patient. Pt got an echo done & went to an appointment with vascular. Plan still developing. Mag & K repleated. Heparin gtt running Q6 Heparin UFH done. PLAN MOVING FORWARD: Possible surgery for LLE. INDIVIDUALIZED FALL PREVENTION INTERVENTIONS: Patient-specific fall risk factors per assessment: [current deficits]: Pain in LLE & associatedlack of mobility Assistance [level of assistance required for transfers and ambulation]: CTG Supervision [direct monitoring required during toileting and ADLs]: CTG Surveillance [continuous indirect monitoring]: Purposeful rounding, call light within reach Patient-specific fall prevention interventions for sensory deficits provided, if applicable: [X] N/A CARE PLAN GOAL OUTCOME EVALUATION: Problem: Adult Inpatient Plan of Care Goal: Plan of Care Review Outcome: Ongoing (Interventions Implemented as Appropriate) Goal: Patient-Specific Goal (Individualized) Outcome: Ongoing (Interventions Implemented as Appropriate) Goal: Absence of Hospital-Acquired Illness or Injury Outcome: Ongoing (Interventions Implemented as Appropriate) Intervention: Identify and Manage Fall Risk Flowsheets (Taken 05/28/20240 by Maribel Lazo RN) Safety Promotion/Fall Prevention: activity supervised Intervention: Prevent Skin Injury Flowsheets (Taken 05/28/20242299 by Maribel Lazo RN) Body Position: position changed independently Intervention: Prevent and Manage VTE (Venous Thromboembolism) Risk Flowsheets (Taken 05/29/2024354 by Maribel Lazo RN) VTE Prevention/Management: anticoagulant therapy Goal: Optimal Comfort and Wellbeing Outcome: Ongoing (Interventions Implemented as Appropriate) Intervention: Provide Person-Centered Care Flowsheets (Taken 05/28/20242299 by Maribel Lazo RN) Trust Relationship/Rapport: care explained emotional support provided questions answered reassurance provided thoughts/feelings acknowledged Goal: Readiness for Transition of Care Outcome: Ongoing (Interventions Implemented as Appropriate) Problem: Pain Acute Goal: Acceptable Pain Control and Functional Ability Outcome: Ongoing (Interventions Implemented as Appropriate) Intervention: Optimize Psychosocial Wellbeing Flowsheets (Taken 05/28/20242299 by Maribel Lazo RN) Diversional Activities: smartphone television Supportive Measures: active listening utilized Problem: Fall Injury Risk Goal: Absence of Fall and Fall-Related Injury Outcome: Ongoing (Interventions Implemented as Appropriate) * Plan of Care - Maribel Lazo RN - 05/29/2024 5:03 AM EDT Patient aox4, VSS, patient has complaints of acute pain in left leg/foot currently being managed with prn pain medications, Heparin drip infusing at 1600 units, pt ambulatory, standby assistance to the restroom, voided well, no bowel movement noted overnight, pt has no pulses in left foot, MD aware, patient seemed to sleep on/off throughout the night, no acute signs of distress noted overnight Problem: Adult Inpatient Plan of Care Goal: Plan of Care Review Outcome: Ongoing (Interventions Implemented as Appropriate) Goal: Patient-Specific Goal (Individualized) Outcome: Ongoing (Interventions Implemented as Appropriate) Goal: Absence of Hospital-Acquired Illness or Injury Outcome: Ongoing (Interventions Implemented as Appropriate) Goal: Optimal Comfort and Wellbeing Outcome: Ongoing (Interventions Implemented as Appropriate) Goal: Readiness for Transition of Care Outcome: Ongoing (Interventions Implemented as Appropriate) Problem: Pain Acute Goal: Acceptable Pain Control and Functional Ability Outcome: Ongoing (Interventions Implemented as Appropriate) Problem: Fall Injury Risk Goal: Absence of Fall and Fall-Related Injury Outcome: Ongoing (Interventions Implemented as Appropriate) * Consult Note - Allen Orona RPH - 05/29/2024 4:00 AM EDT [facility] List Update for Medication Reconciliation 05/29/24 4:01 AM Geovanna Dixon Jr. 1975 No Known Allergies Person Interviewed: patient Quality of Interview/accuracy of medication list: Fair Sources used to compile medication list: [x] Epic medication list [x] SureScripts/Dispense Report [] PCP/Specialist list [] Retail pharmacy [] Patient list [] MAR [] Other Changes made to home medication list: Additions: None Deletions: Plavix, Dexilant, Amaryl, Metoprolol, simvastatin, Pericolace Changes: Omeprazole dose Additional Notes: Pt is out of some med due to inability to afford. Cost may be a barrier to compliance with multiple meds. Overall compliance seems to be poor using refill hx. Recommended changes: Consider dose reduction for Venlafaxine to 75 mg due to several weeks of not taking to avoid side effects. The home medication list is now updated to the best of my knowledge and is ready to be reconciled by the provider. Please contact the TelePharmacy Medication Reconciliation Pharmacist at for any questions. Allen Orona RPH * ED Triage - Debby Chawla RN - 05/28/2024 5:45 PM EDT Patient arrives via EMS, from OSH, for arterial occlusion. Pt to see Vascular Surgery. Patient A&O x 4. Patient speaking in clear, logical, and full sentences. Respiratory rate regular and unlabored. Skin appropriate color, warm, and dry. HPI (Adult) Stated Reason for Visit: L leg arterial occlusion History Obtained From: patient, EMS documented in this encounter Plan of Treatment Not on file documented as of this encounter Procedures Procedure Name Priority Date/Time Associated Diagnosis Comments POCT GLUCOSE Routine 06/02/2024 4:12 PM EDT POCT GLUCOSE Routine 06/02/2024 1:47 PM EDT POCT GLUCOSE Routine 06/02/2024 11:28 AM EDT POCT GLUCOSE Routine 06/02/2024 8:59 AM EDT HEPARIN (UNFRACTIONATED) LEVEL Timed 06/02/2024 1:52 AM EDT HEMOGRAM Routine 06/02/2024 1:52 AM EDT DIFFERENTIAL, AUTOMATED Routine 06/02/20 1:52 AM EDT CBC (WITH DIFF) Routine 06/02/2024 1:52 AM EDT PHOSPHORUS Routine 06/02/2024 1:52 AM EDT MAGNESIUM Routine 06/02/2024 1:52 AM EDT BASIC METABOLIC PANEL Routine 06/02/2024 1:52 AM EDT POCT GLUCOSE Routine 06/01/2024 7:45 PM EDT POCT GLUCOSE Routine 06/01/2024 4:45 PM EDT POCT GLUCOSE Routine 06/01/2024 2:32 PM EDT MRSA PCR SCREEN Routine 06/01/2024 1:42 PM EDT POCT GLUCOSE Routine 06/01/2024 11:49 AM EDT POCT GLUCOSE Routine 06/01/2024 8:17 AM EDT POCT GLUCOSE Routine 06/01/2024 8:13 AM EDT POCT GLUCOSE Routine 06/01/2024 6:43 AM EDT HEMOGRAM Routine 06/01/2024 6:12 AM EDT DIFFERENTIAL, AUTOMATED Routine 06/01/20 6:12 AM EDT CBC (WITH DIFF) Routine 06/01/2024 6:12 AM EDT PHOSPHORUS Routine 06/01/2024 6:12 AM EDT MAGNESIUM Routine 06/01/2024 6:12 AM EDT BASIC METABOLIC PANEL Routine 06/01/2024 6:12 AM EDT POCT GLUCOSE Routine 05/31/2024 11:26 PM EDT POCT GLUCOSE Routine 05/31/2024 8:28 PM EDT POCT GLUCOSE Routine 05/31/2024 4:31 PM EDT POCT GLUCOSE Routine 05/31/2024 12:43 PM EDT POCT GLUCOSE Routine 05/31/2024 8:19 AM EDT DUPLEX FOR DVT, LEG, UNILAT Routine 05/31/2024 7:35 AM EDT Critical limb ischemia of left lower extremity POCT GLUCOSE Routine 05/31/2024 6:53 AM EDT HEPARIN (UNFRACTIONATED) LEVEL Timed 05/31/2024 5:26 AM EDT HEMOGRAM Routine 05/31/2024 5:26 AM EDT DIFFERENTIAL, AUTOMATED Routine 05/31/20 5:26 AM EDT CBC (WITH DIFF) Routine 05/31/2024 5:26 AM EDT PHOSPHORUS Routine 05/31/2024 5:26 AM EDT MAGNESIUM Routine 05/31/2024 5:26 AM EDT LDL CHOLESTEROL, DIRECT Routine 05/31/20 5:26 AM EDT HDL/CHOL PROFILE Routine 05/31/2024 5:26 AM EDT BASIC METABOLIC PANEL Routine 05/31/2024 5:26 AM EDT RAPID DRUG SCREEN, URINE STAT 05/31/2024 5:00 AM EDT RAPID DRUG SCREEN W/O CONFIRMATION, URINE STAT 05/31/2024 5:00 AM EDT URINALYSIS DIPSTICK STAT 05/31/2024 5 :[address] LOWER EXTREMITY W CONTRAST LEFT Routine 05/30/2024 7:27 PM EDT POCT GLUCOSE Routine 05/30/2024 5:41 PM EDT PHOSPHORUS STAT 05/30/2024 4:47 PM EDT MAGNESIUM STAT 05/30/2024 4:47 PM EDT BASIC METABOLIC PANEL STAT 05/30/2024 4:47 PM EDT POCT GLUCOSE Routine 05/30/2024 12:42 PM EDT NM PHARMACOLOGIC STRESS CT COMPONENT Routine 05/30/2024 11:20 AM EDT NUCLEAR PHARMACOLOGIC STRESS CARDIOLOGY Routine 05/30/2024 10:48 AM EDT NM PHARMACOLOGIC STRESS AND REST MYOCARDIAL PERFUSION Routine 05/30/2024 10:40 AM EDT POCT GLUCOSE Routine 05/30/2024 7:49 AM EDT POCT GLUCOSE Routine 05/30/2024 6:39 AM EDT HEPARIN (UNFRACTIONATED) LEVEL Timed 05/30/2024 12:39 AM EDT HEMOGRAM Routine 05/30/2024 12:39 AM EDT DIFFERENTIAL, AUTOMATED Routine 05/30/20 12:39 AM EDT CBC (WITH DIFF) Routine 05/30/2024 12:39 AM EDT PHOSPHORUS Routine 05/30/2024 12:39 AM EDT MAGNESIUM Routine 05/30/2024 12:39 AM EDT BASIC METABOLIC PANEL Routine 05/30/2024 12:39 AM EDT LEG MAP FOR BYPASS GRAFT, BILAT STAT 05/29/2024 8:01 PM EDT Limb ischemia ELEN, LEGS, MULTIPLE LEVELS STAT 05/29/2024 8:01 PM EDT Limb ischemia ISLET ANTIGEN 2 ANTIBODY Routine 05/29/2024 7:55 PM EDT GAD65 ANTIBODY ASSAY Routine 05/29/2024 7:55 PM EDT TSH Routine 05/29/2024 7:55 PM EDT HEPARIN (UNFRACTIONATED) LEVEL Timed 05/29/2024 5:35 PM EDT POCT GLUCOSE Routine 05/29/2024 4:12 PM EDT EKG 12-LEAD STAT 05/29/2024 2:51 PM EDT Limb ischemia ECHO COMPLETE W CONTRAST Routine 05/29/2024 1:29 PM EDT Limb ischemia POCT GLUCOSE Routine 05/29/2024 1:23 PM EDT HEPARIN (UNFRACTIONATED) LEVEL Timed 05/29/2024 9:52 AM EDT POCT GLUCOSE Routine 05/29/2024 8:48 AM EDT POCT GLUCOSE Routine 05/29/2024 4:00 AM EDT POCT GLUCOSE Routine 05/29/2024 2:47 AM EDT HEPARIN (UNFRACTIONATED) LEVEL Timed 05/29/2024 2:13 AM EDT HEMOGRAM Routine 05/29/2024 2:13 AM EDT DIFFERENTIAL, AUTOMATED Routine 05/29/20 2:13 AM EDT CBC (WITH DIFF) Routine 05/29/2024 2:13 AM EDT PHOSPHORUS Routine 05/29/2024 2:13 AM EDT MAGNESIUM Routine 05/29/2024 2:13 AM EDT HEMOGLOBIN A1C Routine 05/29/2024 2:13 AM EDT BASIC METABOLIC PANEL Routine 05/29/2024 2:13 AM EDT POCT GLUCOSE Routine 05/29/2024 12:25 AM EDT EKG 12-LEAD STAT 05/28/2024 7:54 PM EDT TYPE AND SCREEN VALIDITY Routine 05/28/2024 6:20 PM EDT ABORH RECHECK STATUS Routine 05/28/2024 6:20 PM EDT HEMOGRAM STAT 05/28/2024 6:20 PM EDT DIFFERENTIAL, AUTOMATED STAT 05/28/20 6:20 PM EDT GOLD TUBE HOLD STAT 05/28/2024 6:20 PM EDT LACTATE, WHOLE BLOOD STAT 05/28/2024 6:20 PM EDT HC PARTIAL THROMBOPLASTIN TIME STAT 05/28/2024 6:20 PM EDT PROTHROMBIN TIME STAT 05/28/2024 6:20 PM EDT CBC (WITH DIFF) STAT 05/28/2024 6:20 PM EDT TYPE AND SCREEN (MC/CGP/BABITA) STAT 05/28/2024 6:20 PM EDT BASIC METABOLIC PANEL STAT 05/28/2024 6:20 PM EDT POCT GLUCOSE Routine 05/28/2024 5:46 PM EDT documented in this encounter Results * (ABNORMAL) POCT Glucose (06/02/2024 4:12 PM EDT) [facility] Glucose, POC 203(H) 65 - 199 mg/dL [facility] Comment: Supplemental ranges: <140 mg/dL before meals <180 mg/dL all other times of the day Blood 06/02/2024 4:12 PM EDT 06/02/2024 4:12 PM EDT Jerry Marin MD POINT OF CARE TEST O RDERAHERNANDEZ Performing Organization Address [facility] Co de Phone Number [facility] [place] [address] * (ABNORMAL) POCT Glucose (06/02/2024 1:47 PM EDT) Glucose, POC 306(H) 65 - 199 mg/dL [facility] Comment: Supplemental ranges: <140 mg/dL before meals <180 mg/dL all other times of the day Blood 06/02/2024 1:47 PM EDT 06/02/2024 1:47 PM EDT Jerry Marin MD POINT OF CARE TEST O GILDA Performing Organization Address [facility] Co de Phone Number [facility] [place] [address] * (ABNORMAL) POCT Glucose (06/02/2024 11:28 AM EDT) Glucose, POC 270(H) 65 - 199 mg/dL [facility] Comment: Supplemental ranges: <140 mg/dL before meals <180 mg/dL all other times of the day Blood 06/02/2024 11:2 8 AM EDT 06/02/2024 11:28 AM EDT Jerry Marin MD POINT OF CARE TEST O GILDA Performing Organization Address [facility] Co de Phone Number [facility] [place] [address] * (ABNORMAL) POCT Glucose (06/02/2024 8:59 AM EDT) Glucose, POC 299(H) 65 - 199 mg/dL [facility] Comment: Supplemental ranges: <140 mg/dL before meals <180 mg/dL all other times of the day Blood 06/02/2024 8:59 AM EDT 06/02/2024 8:59 AM EDT Jerry Marin MD POINT OF CARE TEST O RDERABLES [facility] [place] [address] * (ABNORMAL) Differential, Automated (06/02/2024 1:52 AM EDT) Neutrophil % 75.2 % [facility] Neutrophil Absolute 9.62(H) 1.70 - 6.10 x10(3)/mc L [facility] Lymph % 12.7 % [facility] Lymphocytes Abs 1.6 0.9 - 3.2 x10(3)/mc L [facility] Monocyte % 7.8 % [facility] Monocyte Abs 1.0(H) 0.3 - 0.9 x10(3)/mc L [facility] Eos % 1.1 % [facility] Eosinophils Abs 0.1 0.0 - 0.4 x10(3)/mc L [facility] Basophil % 0.9 % [facility] Baso Absolute 0.1 0.0 - 0.1 x10(3)/mc L [facility] Immature Gran % 2.30 % [facility] Comment: Immature granulocytes(IG's)percentage and absolute count will include metamyelocytes, myelocytes, and promyelocytes. Blood smears from CBCs yielding IG's will be scanned manually for concordance. If this scan disagrees with the automated IG or if promyelocytes are noted, a manual differential will be performed. Immature Gran Absolute 0.29(H) 0.00 - 0.04 x10(3)/ L [facility] Blood 06/02/2024 1:52 AM EDT 06/02/2024 2:06 AM EDT Narrative Resulting Agency Comment Spec In Lab Lili Tapia MD HEMATOLOGY ORDERA BLES [facility] [place] [address] * (ABNORMAL) Hemogram (06/02/2024 1:52 AM EDT) White Blood Cell 12.8(H) 4.0 - 9.5 x10(3)/mc L [facility] Red Blood Cell 4.56(L) 4.58 - 5.54 x10(6)/mc L [facility] Hemoglobin 13.7 13.7 - 16.5 g/dL [facility] Hematocrit 39.0(L) 40.5 - 48.5 % [facility] Mean Cell Volume 85.5 82.9 - 93.1 fL [facility] Mean Cell Hemoglobin 30.0 27.5 - 32.1 pg [facility] Mean Cell Hemoglobin Concentration 35.1 32.0 - 35.7 g/dL [facility] Platelet 283 145 - 357 x10(3)/mc L [facility] RDW Standard Deviation 35.7(L) 36.0 - 45.0 fL [facility] RDW coefficient of variation 11.6 11.4 - 13.8 % [facility] Mean Platelet Volume 10.2 7.6 - 12.9 fL [facility] NRBC% auto 0.0 % [facility] NRBC Absolute 0.000 0.000 - 0.000 x10(3)/ L [facility] Blood 06/02/2024 1:52 AM EDT 06/02/2024 2:06 AM EDT Narrative Resulting Agency Comment Spec In Lab Lili Tapia MD HEMATOLOGY ORDERA BLES [facility] [place] [address] * Heparin (unfractionated) Level (06/02/2024 1:52 AM EDT) UF Heparin 0.35 IU/mL [facility] Comment: Heparin (anti-Xa) levels should [...] Lab Arthur Patel DO HEMATOLOGY ORDERABLE S [facility] [place] [address] * Phosphorus (06/02/2024 1:52 AM EDT) [facility] Phosphorus 3.3 2.5 - 4.5 mg/dL [facility] Blood 06/02/2024 1:52 AM EDT 06/02/2024 2:06 AM EDT Narrative Resulting Agency Comment Spec In Lab Jerry Marin MD CHEMISTRY ORDERABLES [facility] [place] [address] * Magnesium (06/02/2024 1:52 AM EDT) [facility] Magnesium 0.81 0.69 - 1.07 mmol/L [facility] Blood 06/02/2024 1:52 AM EDT 06/02/2024 2:06 AM EDT Narrative Resulting Agency Comment Spec In Lab Jerry Marin MD CHEMISTRY ORDERABLES [facility] [place] [address] * (ABNORMAL) Basic Metabolic Panel (non-fasting) (06/02/2024 1:52 AM EDT) Glucose 165 65 - 199 mg/dL [facility] Comment:Diabetes: >=200 mg/d L plus symptoms Blood Urea Nitrogen 7(L) 10 - 20 mg/dL [facility] Creatinine 0.52(L) 0.80 - 1.50 mg/dL [facility] Sodium 137 135 - 145 mmol/L [facility] Potassium 4.0 3.5 - 5.0 mmol/L [facility] Comment: Please note: ??Patients with WBC >100,000 may have falsely elevated Potassium levels. ??For accurate Potassium quantification in these patients send serum separator tube (gold top) for subsequent determinations. ??Contact the Clinical Chemistry Laboratory if there are any questions. Chloride 102 98 - 107 mmol/L [facility] Carbon Dioxide 23 22 - 31 mmol/L [facility] Anion Gap 12 5 - 15 mmol/L [facility] Calcium 9.5 8.5 - 10.5 mg/dL [facility] Est Glomerular Filtration Rate 123 >=60 mL/min/1. 73 m?? [facility] Comment: This patient's estimated GFR was [...] Narrative Resulting Agency Comment Spec In Lab Jerry Marin MD CHEMISTRY ORDERABLES Performing Organization Address [facility] Co de Phone Number [facility] [place] [address] * (ABNORMAL) POCT Glucose (06/01/2024 7:45 PM EDT) Glucose, POC 225(H) 65 - 199 mg/dL [facility] Comment: Supplemental ranges: <140 mg/dL before meals <180 mg/dL all other times of the day Blood 06/01/2024 7:45 PM EDT 06/01/2024 7:45 PM EDT Jerry Marin MD POINT OF CARE TEST O RDERAHERNANDEZ Performing Organization Address [facility] Phone Number [facility] [place] [address] * POCT Glucose (06/01/2024 4:45 PM EDT) Glucose, POC 178 65 - 199 mg/dL [facility] Comment: Supplemental ranges: <140 mg/dL before meals <180 mg/dL all other times of the day Blood 06/01/2024 4:45 PM EDT 06/01/2024 4:45 PM EDT Jerry Marin MD POINT OF CARE TEST O GILDA Performing Organization Address [facility] Co de Phone Number [facility] [place] [address] * POCT Glucose (06/01/2024 2:32 PM EDT) Glucose, POC 195 65 - 199 mg/dL [facility] Comment: Supplemental ranges: <140 mg/dL before meals <180 mg/dL all other times of the day Blood 06/01/2024 2:32 PM EDT 06/01/2024 2:32 PM EDT Jerry Marin MD POINT OF CARE TEST O RDERABLES Performing Organization Address [facility] Co de Phone Number [facility] [place] [address] * MRSA PCR Screen ([facility]/CGP/APD/[facility]H) (06/01/2024 1:42 PM EDT) [facility] MRSA PCR Negative Negative [facility] MRSA (Interp) Methicillin-resist ant Staphylococcus aureus (MRSA) is NOT DETECTED The MRSA target DNA sequences (mec and SCC) were not detected within the acceptable ranges using the Xpert MRSA NxG on the GeneXpert Dx System (ScaleMP). This suggests the absence of MRSA in the patient specimen submitted for testing. This test is cleared by the U.S. Food and Drug Administration for clinical use and its performance characteristics have been verified by the [facility] at [facility]. This result does not rule out the presence of any other organisms. Rare false negative results may occur if MRSA is present at low concentrations with much higher concentrations of other organisms including MRSE or S. aureus with an empty SCC cassette. [facility] Comment: [VERIFIED DATE]06.02.24 Verified By:Gloria Jonas (Electronic Signature) Nasopharyngeal Swab 06/01/20 1:42 PM EDT 06/01/2024 3:11 PM EDT Comment:Specimen Type->Nasop haryngeal Swab Narrative Resulting Agency Comment Spec In Lab Jerry Marin MD MOLECULAR ORDERABLES Performing Organization Address [facility]/ZIP Co de Phone Number [facility] [place] [address] * (ABNORMAL) POCT Glucose (06/01/2024 11:49 AM EDT) [facility] Glucose, POC 264(H) 65 - 199 mg/dL [facility] Comment: Supplemental ranges: <140 mg/dL before meals <180 mg/dL all other times of the day Blood 06/01/2024 11:4 9 AM EDT 06/01/2024 11:49 AM EDT Jerry Marin MD POINT OF CARE TEST O GILDA Performing Organization Address [facility] Co de Phone Number [facility] [place] [address] * (ABNORMAL) POCT Glucose (06/01/2024 8:17 AM EDT) Glucose, POC 288(H) 65 - 199 mg/dL [facility] Comment: Supplemental ranges: <140 mg/dL before meals <180 mg/dL all other times of the day Blood 06/01/2024 8:17 AM EDT 06/01/2024 8:17 AM EDT Jerry Marin MD POINT OF CARE TEST O GILDA Performing Organization Address [facility] Co de Phone Number [facility] [place] [address] * (ABNORMAL) POCT Glucose (06/01/2024 8:13 AM EDT) Glucose, POC 358(H) 65 - 199 mg/dL [facility] Comment: Supplemental ranges: <140 mg/dL before meals <180 mg/dL all other times of the day Blood 06/01/2024 8:13 AM EDT 06/01/2024 8:13 AM EDT Jerry Marin MD POINT OF CARE TEST O DIMITRIERAHERNANDEZ Performing Organization Address [facility] Co de Phone Number [facility] [place] [address] * (ABNORMAL) POCT Glucose (06/01/2024 6:43 AM EDT) Glucose, POC 296(H) 65 - 199 mg/dL [facility] Comment: Supplemental ranges: <140 mg/dL before meals <180 mg/dL all other times of the day Blood 06/01/2024 6:43 AM EDT 06/01/2024 6:43 AM EDT Jerry Marin MD POINT OF CARE TEST O RDERABLES [facility] [place] [address] * (ABNORMAL) Differential, Automated (06/01/2024 6:12 AM EDT) Neutrophil % 73.0 % [facility] Neutrophil Absolute 8.65(H) 1.70 - 6.10 x10(3)/mc L [facility] Lymph % 15.2 % [facility] Lymphocytes Abs 1.8 0.9 - 3.2 x10(3)/ L [facility] Monocyte % 7.7 % [facility] Monocyte Abs 0.9 0.3 - 0.9 x10(3)/mc L [facility] Eos % 1.4 % [facility] Eosinophils Abs 0.2 0.0 - 0.4 x10(3)/ L [facility] [facility] Basophil % 1.2 % [facility] Baso Absolute 0.1 0.0 - 0.1 x10(3)/mc L [facility] Immature Gran % 1.50 % [facility] Comment: Immature granulocytes(IG's)percentage and absolute count will include metamyelocytes, myelocytes, and promyelocytes. Blood smears from CBCs yielding IG's will be scanned manually for concordance. If this scan disagrees with the automated IG or if promyelocytes are noted, a manual differential will be performed. Immature Gran Absolute 0.18(H) 0.00 - 0.04 x10(3)/mc L [facility] Blood 06/01/2024 6:12 AM EDT 06/01/2024 6:43 AM EDT Narrative Resulting Agency Comment Spec In Lab Lili Tapia MD HEMATOLOGY ORDERA BLES [facility] [place] [address] * (ABNORMAL) Hemogram (06/01/2024 6:12 AM EDT) White Blood Cell 11.8(H) 4.0 - 9.5 x10(3)/mc L [facility] Red Blood Cell 4.66 4.58 - 5.54 x10(6)/mc L [facility] Hemoglobin 14.1 13.7 - 16.5 g/dL [facility] Hematocrit 39.6(L) 40.5 - 48.5 % [facility] Mean Cell Volume 85.0 82.9 - 93.1 fL [facility] Mean Cell Hemoglobin 30.3 27.5 - 32.1 pg [facility] Mean Cell Hemoglobin Concentration 35.6 32.0 - 35.7 g/dL [facility] Platelet 264 145 - 357 x10(3)/mc L [facility] RDW Standard Deviation 35.0(L) 36.0 - 45.0 [facility] RDW coefficient of variation 11.4 11.4 - 13.8 % [facility] Mean Platelet Volume 10.8 7.6 - 12.9 [facility] NRBC% auto 0.0 % [facility] NRBC Absolute 0.000 0.000 - 0.000 x10(3)/mc L [facility] Blood 06/01/2024 6:12 AM EDT 06/01/2024 6:43 AM EDT Narrative Resulting Agency Comment Spec In Lab Lili Tapia MD HEMATOLOGY ORDERA BLES [facility] [place] [address] * Phosphorus (06/01/2024 6:12 AM EDT) Phosphorus 3.2 2.5 - 4.5 mg/dL [facility] Blood 06/01/2024 6:12 AM EDT 06/01/2024 6:43 AM EDT Narrative Resulting Agency Comment Spec In Lab Jerry Marin MD CHEMISTRY ORDERABLES Performing Organization Address City/[facility]/ZIP Co de Phone Number [facility] [place] [address] * Magnesium (06/01/2024 6:12 AM EDT) Magnesium 0.87 0.69 - 1.07 mmol/L [facility] Blood 06/01/2024 6:12 AM EDT 06/01/2024 6:43 AM EDT Narrative Resulting Agency Comment Spec In Lab Jerry Marin MD CHEMISTRY ORDERABLES Performing Organization Address City/[facility]/ZIP Co de Phone Number [facility] [place] [address] * (ABNORMAL) Basic Metabolic Panel (non-fasting) (06/01/2024 6:12 AM EDT) Glucose 300(H) 65 - 199 mg/dL [facility] Comment:Diabetes: >=200 mg/d L plus symptoms Blood Urea Nitrogen 7(L) 10 - 20 mg/dL [facility] Creatinine 0.54(L) 0.80 - 1.50 mg/dL [facility] Sodium 135 135 - 145 mmol/L [facility] Potassium 4.1 3.5 - 5.0 mmol/L [facility] Comment: Please note: ??Patients with WBC >100,000 may have falsely elevated Potassium levels. ??For accurate Potassium quantification in these patients send serum separator tube (gold top) for subsequent determinations. ??Contact the Clinical Chemistry Laboratory if there are any questions. Chloride 102 98 - 107 mmol/L [facility] Carbon Dioxide 22 22 - 31 mmol/L [facility] Anion Gap 11 5 - 15 mmol/L [facility] Calcium 9.2 8.5 - 10.5 mg/dL [facility] Est Glomerular Filtration Rate 121 >=60 mL/min/1. 73 m?? [facility] Comment: This patient's estimated GFR was [...] and symptoms in addition to eGFR. Blood 06/01/2024 6:12 AM EDT 06/01/2024 6:43 AM EDT Narrative Resulting Agency Comment Spec In Lab Jerry Marin MD CHEMISTRY ORDERABLES Performing Organization Address [facility]/ZIP Co de Phone Number [facility] [place] [address] * POCT Glucose (05/31/2024 11:26 PM EDT) Glucose, POC 168 65 - 199 mg/dL [facility] Comment: Supplemental ranges: <140 mg/dL before meals <180 mg/dL all other times of the day Blood 05/31/2024 11:2 6 PM EDT 05/31/2024 11:26 PM EDT Jerry Marin MD POINT OF CARE TEST O RDERABLES Performing Organization Address City/[facility]/ZIP Co de Phone Number [facility] [place] [address] * (ABNORMAL) POCT Glucose (05/31/2024 8:28 PM EDT) Glucose, POC 248(H) 65 - 199 mg/dL [facility] Comment: Supplemental ranges: <140 mg/dL before meals <180 mg/dL all other times of the day Blood 05/31/2024 8:28 PM EDT 05/31/2024 8:28 PM EDT Jerry Marin MD POINT OF CARE TEST O GILDA [facility] [place] [address] * POCT Glucose (05/31/2024 4:31 PM EDT) Glucose, POC 187 65 - 199 mg/dL [facility] Comment: Supplemental ranges: <140 mg/dL before meals <180 mg/dL all other times of the day Blood 05/31/2024 4:31 PM EDT 05/31/2024 4:31 PM EDT Jerry Marin MD POINT OF CARE TEST O GILDA Performing Organization Address [facility] Co de Phone Number [facility] [place] [address] * (ABNORMAL) POCT Glucose (05/31/2024 12:43 PM EDT) Glucose, POC 200(H) 65 - 199 mg/dL [facility] Comment: Supplemental ranges: <140 mg/dL before meals <180 mg/dL all other times of the day Blood 05/31/2024 12:4 3 PM EDT 05/31/2024 12:43 PM EDT Jerry Marin MD POINT OF CARE TEST O GILDA Performing Organization Address City/[facility]/ZIP Co de Phone Number [facility] [place] [address] * (ABNORMAL) POCT Glucose (05/31/2024 8:19 AM EDT) Glucose, POC 232(H) 65 - 199 mg/dL [facility] Comment: Supplemental ranges: <140 mg/dL before meals <180 mg/dL all other times of the day Blood 05/31/2024 8:19 AM EDT 05/31/2024 8:19 AM EDT Jerry Marin MD POINT OF CARE TEST O RDERABLES Performing Organization Address City/[facility]/ZIP Co de Phone Number [facility] [place] [phone] * Duplex for DVT, Leg, Unilat (05/31/2024 7:35 AM EDT) VB Text Report Department: Vascular Surgery Lab Patient: [id number] (GEOVANNA DIXON) CPT: 65385 Referring Physician: JERRY MARIN ?? Phone: Indications: Left lower extremity [...] of Report VASCUBASE 05/31/2024 7:35 AM EDT Jerry Marin MD VASCULAR ORDERABLES VASCUBASE * (ABNORMAL) POCT Glucose (05/31/2024 6:53 AM EDT) Pathologist [facility] Glucose, POC 261(H) 65 - 199 mg/dL [facility] Comment: Supplemental ranges: <140 mg/dL before meals <180 mg/dL all other times of the day Blood 05/31/2024 6:53 AM EDT 05/31/2024 6:53 AM EDT Jerry Marin MD POINT OF CARE TEST O RDERABLES [facility] [place] [address] * (ABNORMAL) Differential, Automated (05/31/2024 5:26 AM EDT) [facility] Neutrophil % 75.1 % [facility] Neutrophil Absolute 9.03(H) 1.70 - 6.10 x10(3)/mc L [facility] Lymph % 14.4 % [facility] Lymphocytes Abs 1.7 0.9 - 3.2 x10(3)/mc L [facility] Monocyte % 6.2 % [facility] Monocyte Abs 0.8 0.3 - 0.9 x10(3)/mc L [facility] Eos % 2.1 % [facility] Eosinophils Abs 0.2 0.0 - 0.4 x10(3)/mc L [facility] Basophil % 1.0 % [facility] Baso Absolute 0.1 0.0 - 0.1 x10(3)/mc L [facility] Immature Gran % 1.20 % [facility] Comment: Immature granulocytes(IG's)percentage and absolute count will include metamyelocytes, myelocytes, and promyelocytes. Blood smears from CBCs yielding IG's will be scanned manually for concordance. If this scan disagrees with the automated IG or if promyelocytes are noted, a manual differential will be performed. Immature Gran Absolute 0.14(H) 0.00 - 0.04 x10(3)/mc L [facility] Blood 05/31/2024 5:26 AM EDT 05/31/2024 5:58 AM EDT Narrative Resulting Agency Comment Spec In Lab Lili Tapia MD HEMATOLOGY ORDERA BLES [facility] [place] [address] * (ABNORMAL) Hemogram (05/31/2024 5:26 AM EDT) White Blood Cell 12.0(H) 4.0 - 9.5 x10(3)/[facility] Red Blood Cell 4.66 4.58 - 5.54 x10(6)/[facility] Hemoglobin 13.6(L) 13.7 - 16.5 g/dL [facility] Hematocrit 39.1(L) 40.5 - 48.5 % [facility] Mean Cell Volume 83.9 82.9 - 93.1 [facility] Mean Cell Hemoglobin 29.2 27.5 - 32.1 pg [facility] Mean Cell Hemoglobin Concentration 34.8 32.0 - 35.7 g/dL [facility] Platelet 246 145 - 357 x10(3)/[facility] RDW Standard Deviation 35.0(L) 36.0 - 45.0 [facility] RDW coefficient of variation 11.5 11.4 - 13.8 % [facility] Mean Platelet Volume 11.9 7.6 - 12.9 [facility] NRBC% auto 0.0 % [facility] NRBC Absolute 0.000 0.000 - 0.000 x10(3)/[facility] Blood 05/31/2024 5:26 AM EDT 05/31/2024 5:58 AM EDT Narrative Resulting Agency Comment Spec In Lab Lili Tapia MD HEMATOLOGY ORDERA BLES Performing Organization Address City/[facility]/ZIP Co de Phone Number [facility] [place] [address] * Heparin (unfractionated) Level (05/31/2024 5:26 AM EDT) UF Heparin 0.36 IU/mL [facility] Comment: Specimen drawn more than one hour prior to testing. Results may not be reliable for heparin monitoring. Result may be falsely low. Heparin (anti-Xa) levels should be determined in [...] cardiac surgery): 0.1 ? 0.3 IU/mL Blood 05/31/2024 5:26 AM EDT 05/31/2024 5:58 AM EDT Narrative Resulting Agency Comment Spec In Lab Arthur Patel DO HEMATOLOGY ORDERABLE S Performing Organization Address [facility] Co de Phone Number [facility] [place] [address] * Phosphorus (05/31/2024 5:26 AM EDT) Phosphorus 3.1 2.5 - 4.5 mg/dL [facility] Blood 05/31/2024 5:26 AM EDT 05/31/2024 5:58 AM EDT Narrative Resulting Agency Comment Spec In Lab Jerry Marin MD CHEMISTRY ORDERABLES Performing Organization Address City/[facility]/ZIP Co de Phone Number [facility] [place] [address] * Magnesium (05/31/2024 5:26 AM EDT) Magnesium 0.83 0.69 - 1.07 mmol/L [facility] Blood 05/31/2024 5:26 AM EDT 05/31/2024 5:58 AM EDT Narrative Resulting Agency Comment Spec In Lab Jerry Marin MD CHEMISTRY ORDERABLES [facility] [place] [address] * (ABNORMAL) Basic Metabolic Panel (non-fasting) (05/31/2024 5:26 AM EDT) Glucose 273(H) 65 - 199 mg/dL [facility] Comment:Diabetes: >=200 mg/d L plus symptoms Blood Urea Nitrogen 7(L) 10 - 20 mg/dL [facility] Creatinine 0.55(L) 0.80 - 1.50 mg/dL [facility] Sodium 133(L) 135 - 145 mmol/L [facility] Potassium 3.9 3.5 - 5.0 mmol/L [facility] Comment: Please note: ??Patients with WBC >100,000 may have falsely elevated Potassium levels. ??For accurate Potassium quantification in these patients send serum separator tube (gold top) for subsequent determinations. ??Contact the Clinical Chemistry Laboratory if there are any questions. Chloride 99 98 - 107 mmol/L [facility] Carbon Dioxide 22 22 - 31 mmol/L [facility] Anion Gap 12 5 - 15 mmol/L [facility] Calcium 9.0 8.5 - 10.5 mg/dL [facility] Est Glomerular Filtration Rate 121 >=60 mL/min/1. 73 m?? [facility] Comment: This patient's estimated GFR was [...] and symptoms in addition to eGFR. Blood 05/31/2024 5:26 AM EDT 05/31/2024 5:58 AM EDT Narrative Resulting Agency Comment Spec In Lab Jerry Marin MD CHEMISTRY ORDERABLES Performing Organization Address [facility] Co de Phone Number [facility] [place] [address] * LDL Cholesterol, Direct (05/31/2024 5:26 AM EDT) LDL Cholesterol, Direct 86 mg/dL [facility] Comment: Desirable: ? <100 mg/dL Above Desirable: 100-129 mg/dL Borderline High: 130-159 mg/dL High: ?160-189 mg/dL Very High: ? >di=396 mg/dL If not reaching LDL goals on [...] Narrative Resulting Agency Comment Spec In Lab Jerry Marin MD CHEMISTRY ORDERABLES Performing Organization Address [facility] Co de Phone Number [facility] [place] [address] * HDL/Cholesterol Profile (05/31/2024 5:26 AM EDT) Cholesterol, Total 156 mg/dL Susanne [facility]ANTAMAR[facility] Comment: Desirable: ? <200 mg/dL Borderline High: 200-239 mg/dL Higher: ?>sl=545 mg/dL HDL Cholesterol 33 mg/dL [facility] Comment: Females: High Risk: <50 mg/dL Males: High Risk: <40 mg/dL Lipid Interpretation See Note [facility] Comment: It is important to review [...] ACC/AHA Guidelines (most recently Johann et al. [facility] 08/11/22): For individuals with atherosclerotic cardiovascular disease (ASCVD)or LDL >ib=224 mg/dL, use a high-intensity statin (40-80 mg [...] Narrative Resulting Agency Comment Spec In Lab Jerry Marin MD CHEMISTRY ORDERABLES [facility] [place] [address] * (ABNORMAL) Rapid Drug Screen w/o Confirmation, Urine (05/31/2024 5:00 AM EDT) Barbiturates Screen, Urine None Detected None Detected [facility] Comment: The barbiturate screen detects barbiturates [...] Benzodiazepines Screen, Urine None Detected None Detected [facility] Comment: The benzodiazepines screen detects benzodiazepines [...] Cocaine Screen, Urine Presumptive Pos(A) None Detected [facility] Comment: The cocaine metabolites screen detects benzoylecgonine (Cocaine Metabolite) at concentrations >150 ng/mL. A ? Presumptive Positive? result indicates that the screening result was positive but has not yet been confirmed by a highly-specific method. As with any screen, occasional false positive results from cross-reacting substances may occur. Not for Medico-Legal Purposes. Methadone Metabolites Screen, Urine None Detected None Detected [facility] Comment: The methadone metabolite screen detects EDDP (major methadone metabolite) at concentrations >100 ng/mL. A ? Presumptive Positive? result indicates that the screening result was positive but has not yet been confirmed by a highly-specific method. As with any screen, occasional false positive results from cross-reacting substances may occur. Not for Medico-Legal Purposes. Opiate Screen, Urine None Detected None Detected [facility] Comment: The opiates screen detects opiates [...] Cannabinoid Screen, Urine None Detected None Detected [facility] Comment: The marijuana metabolites screen detects the THC metabolite (98-jsi-6-carboxy-delta 9-THC) at concentrations >20 ng/mL. A ? Presumptive Positive? result indicates that the screening result was positive but has not yet been confirmed by a highly-specific method. As with any screen, occasional false positive results from cross-reacting substances may occur. Not for Medico-Legal Purposes. Oxycodone Screen, Urine Presumptive Pos(A) None Detected [facility] Comment: The oxycodone screen detects oxycodone and oxymorphone at concentrations >100 ng/mL. A ? Presumptive Positive? result indicates that the screening result was positive but has not yet been confirmed by a highly-specific method. As with any screen, occasional false positive results from cross-reacting substances may occur. Not for Medico-Legal Purposes. Buprenorphine Screen, Urine None Detected None Detected [facility] Comment: The buprenorphine screen detects buprenorphine [...] characteristics of this test were determined by [facility] in accordance with CLIA requirements. This laboratory is qualified under CLIA to perform high-complexity testing. Fentanyl Screen, Urine None Detected None Detected [facility] Comment: The fentanyl screen detects fentanyl [...] characteristics of this test were determined by [facility] in accordance with CLIA requirements. This laboratory is qualified under CLIA to perform high-complexity testing. Tricyclics Screen, Urine Presumptive Pos(A) None Detected [facility] Comment: The tricyclics screen detects tricyclic [...] characteristics of this test were determined by [facility] in accordance with CLIA requirements. This laboratory is qualified under CLIA to perform high-complexity testing. Ethanol Screen, Urine None Detected None Detected [facility] Comment:This urine ethanol a ssay detects ethanol at concentrations >/= 100 mg/L. Amphetamines Screen, Urine None Detected None Detected [facility] Comment: The amphetamine screen detects d-amphetamine and d-methamphetamine at concentrations >300 ng/mL. A ? Presumptive Positive? result indicates that the screening result was positive but has not yet been confirmed by a highly-specific method. As with any screen, occasional false positive results from cross-reacting substances may occur. Not for Medico-Legal Purposes. Creatinine Specimen Validity Test, Urine 58 >=20 mg/dL [facility] Chromate Specimen Validity Test, Urine <2.0 <=49.9 mg/L [facility] Nitrite Specimen Validity Test, Urine <50 <=499 mg/L [facility] Oxidant Specimen Validity Test, Urine 10 <=199 mg/L [facility] pH Specimen Validity Test, Urine 6.8 3.0 - 10.9 [facility] Adulterants Screen, Urine None Detected None Detected [facility] Comment:No adulteration of t his urine sample was detected. Urine 05/31/2024 5:00 AM EDT 05/31/2024 5:31 AM EDT Narrative Resulting Agency Comment Spec In Lab Rubio Grimaldo MD CHEMISTRY ORDERABL ES [facility] [place] [address] * (ABNORMAL) Urinalysis without microscopic (05/31/2024 5:00 AM EDT) Glucose, Urine Dipstick >=1000(Criti masoud) Negative mg/dL [facility] Comment: Urinalysis result NOT critical without a combination of Glucose greater than or equal to 500 mg/dL AND Ketones greater than or equal to 80 mg/dL Protein, Urine Dipstick Negative Negative mg/dL [facility] Bilirubin, Urine Dipstick Negative Negative mg/dL [facility] Comment: Clinical correlation required for positive Urine Bilirubin results as false positive may occur with some drugs and drug related products. If a false positive is suspected a serum total bilirubin should be considered if clinically indicated. Urobilinogen, Urine Dipstick Normal Normal mg/dL [facility] pH, Urn (dipstick) 7.0 5.0 - 8.0 [facility] Blood, Urine Dipstick Negative Negative mg/dL [facility] Ketone, Urine Dipstick Negative Negative mg/dL [facility] Nitrite, Urine Dipstick Negative Negative [facility] Leukocytes, Urine Dipstick Negative Negative [facility] Appearance, Urine Dipstick Clear Clear [facility] Specific [place] Urine Automated >=1.030(A) 1.005 - 1.030 [facility] Color, Urine Dipstick Yellow Yellow [facility] Urine 05/31/2024 5:00 AM EDT 05/31/2024 5:31 AM EDT Narrative Resulting Agency Comment Spec In Lab Jerry Marin MD URINE ORDERABLES Performing Organization Address [facility] Co de Phone Number [facility] [place] [address] * Rapid Drug Screen, Urine (IVAN Request) (05/31/2024 5:00 AM EDT) Pathologist [email or web address] IVAN Conf Requested No [facility] IVAN Requested See Comment [facility] Comment:Refer to Rapid Drug Screen w/o Confirmation, Urine for results. Urine 05/31/2024 5:00 AM EDT 05/31/2024 5:31 AM EDT Narrative Resulting Agency Comment Spec In Lab Jerry Marin MD URINE ORDERABLES Performing Organization Address [facility] Co de Phone Number [facility] [place] [address] * CT Lower Extremity w Contrast Left (05/30/2024 7:27 PM EDT) [employer] WORKSTATION ID [id number] DH RAD Anatomical Region Laterality Modality Hip, Leg, [...] who have questions please contact the health long term acute care registered nurse that requested your imaging first. ? Electronically signed by: Ignacia Chi MD, [facility] ([phone]), at 05/31/2024 3:33 PM Narrative 05/31/2024 3:33 PM EDT EXAMINATION: CT [...] ?? Procedure Note Ignacia Chi MD - 05/31/2024 EXAMINATION: CT LOWER EXTREMITY W CONTRAST LEFT [...] patients who have questions please contactthe health long term acute care registered nurse that requested your imaging first. Jerry Marin MD IMG CT ORDERABLES * POCT Glucose (05/30/2024 5:41 PM EDT) Glucose, POC 164 65 - 199 mg/dL [facility] Comment: Supplemental ranges: <140 mg/dL before meals <180 mg/dL all other times of the day Blood 05/30/2024 5:41 PM EDT 05/30/2024 5:41 PM EDT Jerry Marin MD POINT OF CARE TEST O RDERABLES Performing Organization Address City/[facility]/ZIP Co de Phone Number [facility] [place] [address] * Phosphorus (05/30/2024 4:47 PM EDT) Phosphorus 3.8 2.5 - 4.5 mg/dL [facility] Blood 05/30/2024 4:47 PM EDT 05/30/2024 4:58 PM EDT Narrative Resulting Agency Comment Spec In Lab Jerry Marin MD CHEMISTRY ORDERABLES Performing Organization Address City/[facility] [facility]/ZIP Co de Phone Number [facility] [place] [address] * Magnesium (05/30/2024 4:47 PM EDT) Magnesium 0.86 0.69 - 1.07 mmol/L [facility] Blood 05/30/2024 4:47 PM EDT 05/30/2024 4:58 PM EDT Narrative Resulting Agency Comment Spec In Lab Jerry Marin MD CHEMISTRY ORDERABLES Performing Organization Address City/State/[facility] Co de Phone Number [facility] [place] [address] * (ABNORMAL) Basic Metabolic Panel (non-fasting) (05/30/2024 4:47 PM EDT) Glucose 192 65 - 199 mg/dL [facility] Comment:Diabetes: >=200 mg/d L plus symptoms Blood Urea Nitrogen 7(L) 10 - 20 mg/dL [facility] Creatinine 0.58(L) 0.80 - 1.50 mg/dL [facility] Sodium 134(L) 135 - 145 mmol/L [facility] Potassium 3.9 3.5 - 5.0 mmol/L [facility] Comment: Please note: ??Patients with WBC >100,000 may have falsely elevated Potassium levels. ??For accurate Potassium quantification in these patients send serum separator tube (gold top) for subsequent determinations. ??Contact the Clinical Chemistry Laboratory if there are any questions. Chloride 99 98 - 107 mmol/L [facility] Carbon Dioxide 24 22 - 31 mmol/L [facility] Anion Gap 11 5 - 15 mmol/L [facility] Calcium 9.1 8.5 - 10.5 mg/dL [facility] Est Glomerular Filtration Rate 119 >=60 mL/min/1. 73 m?? [facility] Comment: This patient's estimated GFR was [...] and symptoms in addition to eGFR. Blood 05/30/2024 4:47 PM EDT 05/30/2024 4:58 PM EDT Narrative Resulting Agency Comment Spec In Lab Jerry Marin MD CHEMISTRY ORDERABLES Performing Organization Address [facility] de Phone Number [facility] [place] [address] * (ABNORMAL) POCT Glucose (05/30/2024 12:42 PM EDT) Pathologist [email or web address] Glucose, POC 200(H) 65 - 199 mg/dL [facility] Comment: Supplemental ranges: <140 mg/dL before meals <180 mg/dL all other times of the day Blood 05/30/2024 12:4 2 PM EDT 05/30/2024 12:42 PM EDT Jerry Marin MD POINT OF CARE TEST O RDERABLES Performing Organization Address [facility] Phone Number [facility] [place] [address] * NM Pharmacologic Stress CT Component (05/30/2024 11:20 AM EDT) Pathologist [email or web address] WORKSTATION ID [id number] [facility] Anatomical Region Laterality Modality Nuclear Medicine [...] who have questions please contact the health long term acute care registered nurse that requested your imaging first. ? Electronically signed by: Angel Oliva MD, [facility] ([phone]), at 05/30/2024 2:34 PM Procedure Note Angel Oliva MD - 05/30/2024 [...] patients who have questions please contactthe health long term acute care registered nurse that requested your imaging first. Electronically signed by: Angel Oliva MD, [facility]([phone]), at 05/30/2024 2:34 PM Jerry Marin MD IMG NM ORDERABLES * Nuclear Pharmacologic Stress Cardiology (05/30/2024 10:48 AM EDT) Anatomical Region Laterality Modality Other Jerry Marin MD CARDIAC SERVICES ORD ERABLES * NM Pharmacologic Stress and Rest Myocardial Perfusion (05/30/2024 10:40 AM EDT) WORKSTATION ID [id number] [facility] Anatomical Region Laterality Modality Nuclear Medicine [...] who have questions please contact the health long term acute care registered nurse that requested your imaging first. ? Electronically signed by: Angel Oliva MD, [facility] ([phone]), at 05/30/2024 2:33 PM Narrative 05/30/2024 2:33 PM EDT EXAMINATION: NM [...] patients who have questions please contactthe health long term acute care registered nurse that requested your imaging first. Electronically signed by: Angel Oliva MD, [facility]([phone]), at 05/30/2024 2:33 PM Jerry Marin MD IMG NM ORDERABLES * (ABNORMAL) POCT Glucose (05/30/2024 7:49 AM EDT) Glucose, POC 216(H) 65 - 199 mg/dL [facility] Comment: Supplemental ranges: <140 mg/dL before meals <180 mg/dL all other times of the day Blood 05/30/2024 7:49 AM EDT 05/30/2024 7:49 AM EDT Jerry Marin MD POINT OF CARE TEST O RDERABLES [facility] [place] [address] * (ABNORMAL) POCT Glucose (05/30/2024 6:39 AM EDT) Glucose, POC 238(H) 65 - 199 mg/dL [facility] Comment: Supplemental ranges: <140 mg/dL before meals <180 mg/dL all other times of the day Blood 05/30/2024 6:39 AM EDT 05/30/2024 6:39 AM EDT Jerry Marin MD POINT OF CARE TEST O RDERABLES [facility] [place] [address] * (ABNORMAL) Differential, Automated (05/30/2024 12:39 AM EDT) Neutrophil % 68.3 % [facility] Neutrophil Absolute 6.33(H) 1.70 - 6.10 x10(3)/[facility] LABORATORY Lymph % 21.9 % [facility] Lymphocytes Abs 2.0 0.9 - 3.2 x10(3)/[facility] LABORATORY Monocyte % 6.1 % [facility] Monocyte Abs 0.6 0.3 - 0.9 x10(3)/[facility] LABORATORY Eos % 2.5 % [facility] Eosinophils Abs 0.2 0.0 - 0.4 x10(3)/[facility] LABORATORY Basophil % 0.8 % [facility] Baso Absolute 0.1 0.0 - 0.1 x10(3)/[facility] LABORATORY Immature Gran % 0.40 % [facility] Comment: Immature granulocytes(IG's)percentage and absolute count will include metamyelocytes, myelocytes, and promyelocytes. Blood smears from CBCs yielding IG's will be scanned manually for concordance. If this scan disagrees with the automated IG or if promyelocytes are noted, a manual differential will be performed. Immature Gran Absolute 0.04 0.00 - 0.04 x10(3)/ L [facility] Blood 05/30/2024 12:3 9 AM EDT 05/30/2024 12:54 AM EDT Narrative Resulting Agency Comment Spec In Lab Lili Tapia MD HEMATOLOGY ORDERA BLES [facility] [place] [address] * (ABNORMAL) Hemogram (05/30/2024 12:39 AM EDT) White Blood Cell 9.3 4.0 - 9.5 x10(3)/mc L [facility] Red Blood Cell 4.51(L) 4.58 - 5.54 x10(6)/mc L [facility] Hemoglobin 13.3(L) 13.7 - 16.5 g/dL [facility] Hematocrit 38.3(L) 40.5 - 48.5 % [facility] Mean Cell Volume 84.9 82.9 - 93.1 fL [facility] Mean Cell Hemoglobin 29.5 27.5 - 32.1 pg [facility] Mean Cell Hemoglobin Concentration 34.7 32.0 - 35.7 g/dL [facility] Platelet 193 145 - 357 x10(3)/mc L [facility] RDW Standard Deviation 35.1(L) 36.0 - 45.0 fL [facility] RDW coefficient of variation 11.4 11.4 - 13.8 % [facility] Mean Platelet Volume 11.4 7.6 - 12.9 fL [facility] NRBC% auto 0.0 % [facility] NRBC Absolute 0.000 0.000 - 0.000 x10(3)/mc L [facility] Blood 05/30/2024 12:3 9 AM EDT 05/30/2024 12:54 AM EDT Narrative Resulting Agency Comment Spec In Lab Lili Tapia MD HEMATOLOGY ORDERA BLES [facility] [place] [address] * Phosphorus (05/30/2024 12:39 AM EDT) Phosphorus 2.9 2.5 - 4.5 mg/dL [facility] Blood 05/30/2024 12:3 9 AM EDT 05/30/2024 12:54 AM EDT Narrative Resulting Agency Comment Spec In Lab Jerry Marin MD CHEMISTRY ORDERABLES Performing Organization Address [facility] Co de Phone Number [facility] [place] [address] * Magnesium (05/30/2024 12:39 AM EDT) Magnesium 0.82 0.69 - 1.07 mmol/L [facility] Blood 05/30/2024 12:3 9 AM EDT 05/30/2024 12:54 AM EDT Narrative Resulting Agency Comment Spec In Lab Jerry Marin MD CHEMISTRY ORDERABLES Performing Organization Address [facility] Co de Phone Number [facility] [place] [address] * (ABNORMAL) Basic Metabolic Panel (non-fasting) (05/30/2024 12:39 AM EDT) Glucose 383(H) 65 - 199 mg/dL [facility] Comment:Diabetes: >=200 mg/d L plus symptoms Blood Urea Nitrogen 9(L) 10 - 20 mg/dL [facility] Creatinine 0.56(L) 0.80 - 1.50 mg/dL [facility] Sodium 132(L) 135 - 145 mmol/L [facility] Potassium 4.2 3.5 - 5.0 mmol/L [facility] Comment: Please note: ??Patients with WBC >100,000 may have falsely elevated Potassium levels. ??For accurate Potassium quantification in these patients send serum separator tube (gold top) for subsequent determinations. ??Contact the Clinical Chemistry Laboratory if there are any questions. Chloride 98 98 - 107 mmol/L [facility] Carbon Dioxide 22 22 - 31 mmol/L [facility] Anion Gap 12 5 - 15 mmol/L [facility] Calcium 8.7 8.5 - 10.5 mg/dL [facility] Est Glomerular Filtration Rate 120 >=60 mL/min/1. 73 m?? [facility] Comment: This patient's estimated GFR was [...] and symptoms in addition to eGFR. Blood 05/30/2024 12:3 9 AM EDT 05/30/2024 12:54 AM EDT Narrative Resulting Agency Comment Spec In Lab Jerry Marin MD CHEMISTRY ORDERABLES [facility] [place] [address] * Heparin (unfractionated) Level (05/30/2024 12:39 AM EDT) UF Heparin 0.51 IU/mL [facility] Comment: Heparin (anti-Xa) levels should [...] cardiac surgery): 0.1 ? 0.3 IU/mL Blood 05/30/2024 12:3 9 AM EDT 05/30/2024 12:54 AM EDT Narrative Resulting Agency Comment Spec In Lab Arthur Patel DO HEMATOLOGY ORDERABLE S [facility] [place] [id number] * Lower extremity vein map, bilat (05/29/2024 8:01 PM EDT) VB Text Report Department: Vascular Surgery Lab Patient: [id number] (GEOVANNA DIXON) CPT: [id number] Referring Physician: JERRY MARIN ?? Phone: Indications: ??PAD pre-op bypass. [...] of Report VASCUBASE 05/29/2024 8:01 PM EDT Jerry Marin MD VASCULAR ORDERABLES VASCUBASE * ELEN, legs, multiple levels (05/29/2024 8:01 PM EDT) VB Text Report Department: Vascular Surgery Lab Patient: [id number] (GEOVANNA DIXON) CPT: [id number] Referring Physician: JERRY MARIN ?? Phone: Indications: Left lower extremity [...] of Report VASCUBASE 05/29/2024 8:01 PM EDT Jerry Marin MD VASCULAR ORDERABLES Performing Organization Address City/[facility]/ZIP Co de Phone Number VASCUBASE * Islet Antigen 2 Antibody (05/29/2024 7:55 PM EDT) Ia-2 Ab (MARCH) 0.00 <=0.02 nmol/L [facility] Comment: ADDITIONAL INFORMATION This test was developed and its performance characteristics determined by [facility] in a manner consistent with CLIA requirements. This test has not been cleared or approved by the U.S. Food and Drug Administration. Test Performed by: [facility] [place] [address] Maintenance Specialist: Varun Steen Ph.D.; CLIA# [id number] Blood 05/29/2024 7:55 PM EDT 05/30/2024 8:43 AM EDT Narrative Resulting Agency Comment Spec In Lab Jerry Marin MD CHEMISTRY ORDERABLES Performing Organization Address City/[facility] Co de Phone Number [facility] [place] [address] * TSH (05/29/2024 7:55 PM EDT) Thyroid Stimulating Hormone 1.03 0.27 - 4.20 mcIU/mL [facility] Comment: Reference Interval (mcIU/mL): Females: ??First Trimester: 0.23-3.88 ??Second Trimester: 0.22-3.90 ??Third Trimester: 0.44-4.66 Blood 05/29/2024 7:55 PM EDT 05/29/2024 8:00 PM EDT Narrative Resulting Agency Comment Spec In Lab Jerry Marin MD CHEMISTRY ORDERABLES Performing Organization Address [facility] Co de Phone Number [facility] [place] [address] * GAD65 Antibody Assay (05/29/2024 7:55 PM EDT) Gad65 Ab (MARCH) 0.00 <=0.02 nmol/L [facility] Comment: ADDITIONAL INFORMATION This test was developed and its performance characteristics determined by [facility] in a manner consistent with CLIA requirements. This test has not been cleared or approved by the U.S. Food and Drug Administration. Test Performed by: [facility] [place] [address] Maintenance Specialist: Varun Steen Ph.D.; CLIA# [id number] Blood 05/29/2024 7:55 PM EDT 05/30/2024 8:43 AM EDT Narrative Resulting Agency Comment Spec In Lab Jerry Marin MD LAB SEND OUT ORDERAB LES Performing Organization Address [facility] Co de Phone Number [facility] [place] [address] * Heparin (unfractionated) Level (05/29/2024 5:35 PM EDT) UF Heparin 0.50 IU/mL [facility] Comment: Heparin (anti-Xa) levels should [...] cardiac surgery): 0.1 ? 0.3 IU/mL Blood 05/29/2024 5:35 PM EDT 05/29/2024 5:46 PM EDT Narrative Resulting Agency Comment Spec In Lab Arthur Patel DO HEMATOLOGY ORDERABLE S Performing Organization Address [facility] Co de Phone Number [facility] [place] [address] * (ABNORMAL) POCT Glucose (05/29/2024 4:12 PM EDT) Glucose, POC 235(H) 65 - 199 mg/dL [facility] Comment: Supplemental ranges: <140 mg/dL before meals <180 mg/dL all other times of the day Blood 05/29/2024 4:12 PM EDT 05/29/2024 4:12 PM EDT Jerry Marin MD POINT OF CARE TEST O RDERABLES Performing Organization Address [facility] de Phone Number [facility] [place] [address] * EKG 12 Lead (05/29/2024 2:51 PM EDT) Ventricular rate 85 BPM MUSE SYSTEM Atrial Rate 85 BPM MUSE SYSTEM P-R Interval 156 ms MUSE SYSTEM QRS Duration 114 ms MUSE SYSTEM Q-T Interval 384 ms MUSE SYSTEM QTC Calculated (Bezet) 456 ms MUSE SYSTEM Calculated P [place] 16 degrees MUSE SYSTEM Calculated R [place] 21 degrees MUSE SYSTEM Calculated T [place] 15 degrees MUSE SYSTEM INTERPRETATION Normal sinus rhythm Normal ECG When compared with ECG of 28-MAY-2024 19:54, Premature ventricular complexes are no longer Present Confirmed by MD Dian, Asad ([id number]) on 05/30/2024 1:27:54 PM MUSE SYSTEM 05/29/2024 2:51 PM EDT 05/30/2024 1:27 PM EDT Vibha Noyola Marcelino JUSTICE ECG ORDERABLES MUSE SYSTEM * ECHO COMPLETE W CONTRAST (05/29/2024 1:29 PM EDT) Anatomical Region Laterality Modality Cardiac Other 05/29/2024 10:3 3 AM EDT Narrative 05/29/2024 2:27 PM EDT [address] [place] [address] ? Echocardiogram Report Name: GEOVANNA DIXON JR. ? Study Date: 05/29/2024 10:33 AM ? Patient Location: [id number] A : 1975 ? Height: 178 cm ? Account: [id number] Age: 49 yrs ? Weight: 102 kg Gender: Male ?BSA: 2.2 m2 Ordering Physician: JERRY MARIN Referring Physician: KAM SKINNER Performed By: Melina Marinelli RDCS Reason For Study: Limb ischemia Exam Location: [facility]. Interpretation Summary -Left ventricular systolic function is mildly reduced. The left ventricular ejection fraction is 47% by Stacy's biplane. There is akinesis of the inferior wall. -The right ventricle is of normal size. Right ventricular systolic function is normal. -No significant valvular disease noted on this study. -Compared with the previous echo performed on 08/21/23, the ejection fraction has decreased. Procedure Complete-[id number]. An agitated saline bubble contrast study was [...] valve mean: 2.5 mmHg MV E max annabelle: 100.6 cm/sec MV A max annabelle: 100.1 cm/sec MV E/A: 1.0 MV dec time: 0.20 sec Lat Peak E' Annabelle: 9.6 cm/sec E/e' (lat): 10.5 Med Peak E' Annabelle: 8.2 cm/sec E/e' (med): 12.3 E/e' Average: [...] Note Deandre Jones MD - 05/29/2024 [address] [place] [address] Echocardiogram Report Name: GEOVANNA DIXON JR. Study Date: 410:33 AM Patient Location: [id number] A : 1975 Height: 178 cm Account: [id number] Age: 49 yrs Weight: 102 kg Gender: Male BSA: 2.2 m2 Ordering Physician: JERRY MARIN Referring Physician: KAM SKINNER Performed By: Melina Marinelli RDCS Reason For Study: Limb ischemia Exam Location: [facility]. Interpretation Summary -Left ventricular systolic function is mildly reduced. The leftventricular ejection fraction is 47% by Stacy's biplane. There is akinesis of theinferior wall. -The right ventricle is of normal size. Right ventricular systolicfunction is normal. -No significant valvular disease noted on this study. -Compared with the previous echo performed on 08/21/23, the ejectionfraction has decreased. Procedure Complete-[id number]. An agitated saline bubble contrast study was [...] valve mean: 2.5 mmHg MV E max annabelle: 100.6 cm/sec MV A max annabelle: 100.1 cm/sec MV E/A: 1.0 MV dec time: 0.20 sec Lat Peak E' Annabelle: 9.6 cm/sec E/e' (lat): 10.5 Med Peak E' Annabelle: 8.2 cm/sec E/e' (med): 12.3 E/e' Average: 11.4 BRITTANY(I,D): 4.0 cm2 Dimensionless index Aov: 0.98 I WMSI = 1.31 % Normal = 81 SegmentsSize X - Cannot 2 - 4 - 1-2small Interpret 1 - Normal Hypokinetic 3 - Akinetic Dyskinetic 3-5moderate 5 - 6-14large Aneurysmal 15-16diffuse Jerry Marin MD ECHO ORDERABLES * (ABNORMAL) POCT Glucose (05/29/2024 1:23 PM EDT) Pathologist [facility] Glucose, POC 249(H) 65 - 199 mg/dL [facility] Comment: Supplemental ranges: <140 mg/dL before meals <180 mg/dL all other times of the day Blood 05/29/2024 1:23 PM EDT 05/29/2024 1:23 PM EDT Jerry Marin MD POINT OF CARE TEST O RDERABLES [facility] [place] [address] * Heparin (unfractionated) Level (05/29/2024 9:52 AM EDT) [facility] UF Heparin 0.76 IU/mL [facility] Comment: Heparin (anti-Xa) levels should [...] cardiac surgery): 0.1 ? 0.3 IU/mL Blood 05/29/2024 9:52 AM EDT 05/29/2024 10:11 AM EDT Narrative Resulting Agency Comment Spec In Lab Arthur Patel DO HEMATOLOGY ORDERABLE S Performing Organization Address City/[facility]/ZIP Co de Phone Number [facility] [place] [address] * POCT Glucose (05/29/2024 8:48 AM EDT) Glucose, POC 157 65 - 199 mg/dL [facility] Comment: Supplemental ranges: <140 mg/dL before meals <180 mg/dL all other times of the day Blood 05/29/2024 8:48 AM EDT 05/29/2024 8:48 AM EDT Jerry Marin MD POINT OF CARE TEST O DIMITRIERAHERNANDEZ Performing Organization Address [facility]/ZIP Co de Phone Number [facility] [place] [address] * (ABNORMAL) POCT Glucose (05/29/2024 4:00 AM EDT) Glucose, POC 218(H) 65 - 199 mg/dL [facility] Comment: Supplemental ranges: <140 mg/dL before meals <180 mg/dL all other times of the day Blood 05/29/2024 4:00 AM EDT 05/29/2024 4:00 AM EDT Jerry Marin MD POINT OF CARE TEST O DIMITRIERAHERNANDEZ Performing Organization Address City/[facility]/ZIP Co de Phone Number [facility] [place] [address] * (ABNORMAL) POCT Glucose (05/29/2024 2:47 AM EDT) Glucose, POC 214(H) 65 - 199 mg/dL [facility] Comment: Supplemental ranges: <140 mg/dL before meals <180 mg/dL all other times of the day Blood 05/29/2024 2:47 AM EDT 05/29/2024 2:47 AM EDT Jerry Marin MD POINT OF CARE TEST O RDERABLES Performing Organization Address [facility] Co de Phone Number [facility] [place] [address] * (ABNORMAL) Hemoglobin A1c (05/29/2024 2:13 AM EDT) Hemoglobin A1c 12.6(H) 4.3 - 5.6 % [facility] Comment: Reference Range: 4.3 - 5.6% [...] Mellitus, Diabetes Care 2013; 36: Suppl. 1, S67-89 Estimated Average Glucose 316 mg/dL [facility] Blood 05/29/2024 2:13 AM EDT 05/29/2024 8:03 AM EDT Narrative Resulting Agency Comment Spec In Lab Jerry Marin MD CHEMISTRY ORDERABLES Performing Organization Address [facility] Co de Phone Number [facility] [place] [address] * (ABNORMAL) Differential, Automated (05/29/2024 2:13 AM EDT) Neutrophil % 54.8 % [facility] Neutrophil Absolute 5.63 1.70 - 6.10 x10(3)/mc L [facility] Lymph % 34.0 % [facility] Lymphocytes Abs 3.5(H) 0.9 - 3.2 x10(3)/mc L [facility] Monocyte % 6.7 % [facility] Monocyte Abs 0.7 0.3 - 0.9 x10(3)/mc L [facility] Eos % 3.3 % [facility] Eosinophils Abs 0.3 0.0 - 0.4 x10(3)/[facility] LABORATORY Basophil % 0.9 % [facility] Baso Absolute 0.1 0.0 - 0.1 x10(3)/[facility] LABORATORY Immature Gran % 0.30 % [facility] Comment: Immature granulocytes(IG's)percentage and absolute count will include metamyelocytes, myelocytes, and promyelocytes. Blood smears from CBCs yielding IG's will be scanned manually for concordance. If this scan disagrees with the automated IG or if promyelocytes are noted, a manual differential will be performed. Immature Gran Absolute 0.03 0.00 - 0.04 x10(3)/[facility] LABORATORY Blood 05/29/2024 2:13 AM EDT 05/29/2024 2:27 AM EDT Narrative Resulting Agency Comment Spec In Lab Lili Tapia MD HEMATOLOGY ORDERA BLES [facility] [place] [address] * (ABNORMAL) Hemogram (05/29/2024 2:13 AM EDT) White Blood Cell 10.3(H) 4.0 - 9.5 x10(3)/[facility] LABORATORY Red Blood Cell 4.74 4.58 - 5.54 x10(6)/ L [facility] Hemoglobin 14.2 13.7 - 16.5 g/dL [facility] Hematocrit 40.4(L) 40.5 - 48.5 % [facility] Mean Cell Volume 85.2 82.9 - 93.1 fL [facility] Mean Cell Hemoglobin 30.0 27.5 - 32.1 pg [facility] Mean Cell Hemoglobin Concentration 35.1 32.0 - 35.7 g/dL [facility] Platelet 158 145 - 357 x10(3)/mc L [facility] RDW Standard Deviation 35.4(L) 36.0 - 45.0 fL [facility] RDW coefficient of variation 11.4 11.4 - 13.8 % [facility] Mean Platelet Volume 10.6 7.6 - 12.9 fL [facility] NRBC% auto 0.0 % [facility] NRBC Absolute 0.000 0.000 - 0.000 x10(3)/mc L [facility] Blood 05/29/2024 2:13 AM EDT 05/29/2024 2:27 AM EDT Narrative Resulting Agency Comment Spec In Lab Lili Tapia MD HEMATOLOGY ORDERA BLES Performing Organization Address City/State/[facility] Co de Phone Number [facility] [place] [phone] * (ABNORMAL) Heparin (unfractionated) Level (05/29/2024 2:13 AM EDT) UF Heparin 1.19(Crit ical) IU/mL [facility] Comment: Critical Result called by ?? SWAPNA CRITICAL Results read back by: ? ALONZO LAZO at 2024-05-29 02:51:17 Heparin (anti-Xa) levels should be determined in [...] cardiac surgery): 0.1 ? 0.3 IU/mL Blood 05/29/2024 2:13 AM EDT 05/29/2024 2:27 AM EDT Narrative Resulting Agency Comment Spec In Lab Arthur Patel DO HEMATOLOGY ORDERABLE S Performing Organization Address [facility]/ZIP Co de Phone Number [facility] [place] [address] * Phosphorus (05/29/2024 2:13 AM EDT) Phosphorus 2.5 2.5 - 4.5 mg/dL [facility] Blood 05/29/2024 2:13 AM EDT 05/29/2024 2:27 AM EDT Narrative Resulting Agency Comment Spec In Lab Jerry Marin MD CHEMISTRY ORDERABLES Performing Organization Address [facility] Phone Number [facility] [place] [address] * Magnesium (05/29/2024 2:13 AM EDT) Magnesium 0.77 0.69 - 1.07 mmol/L [facility] Blood 05/29/2024 2:13 AM EDT 05/29/2024 2:27 AM EDT Narrative Resulting Agency Comment Spec In Lab Jerry Marin MD CHEMISTRY ORDERABLES Performing Organization Address [facility] Co de Phone Number [facility] [place] [address] * (ABNORMAL) Basic Metabolic Panel (non-fasting) (05/29/2024 2:13 AM EDT) Glucose 251(H) 65 - 199 mg/dL [facility] Comment:Diabetes: >=200 mg/d L plus symptoms Blood Urea Nitrogen 11 10 - 20 mg/dL [facility] Creatinine 0.52(L) 0.80 - 1.50 mg/dL [facility] Sodium 138 135 - 145 mmol/L [facility] Potassium 3.3(L) 3.5 - 5.0 mmol/L [facility] Comment: Please note: ??Patients with WBC >100,000 may have falsely elevated Potassium levels. ??For accurate Potassium quantification in these patients send serum separator tube (gold top) for subsequent determinations. ??Contact the Clinical Chemistry Laboratory if there are any questions. Chloride 102 98 - 107 mmol/L [facility] Carbon Dioxide 25 22 - 31 mmol/L [facility] Anion Gap 11 5 - 15 mmol/L [facility] Calcium 9.0 8.5 - 10.5 mg/dL [facility] Est Glomerular Filtration Rate 123 >=60 mL/min/1. 73 m?? [facility] Comment: This patient's estimated GFR was [...] and symptoms in addition to eGFR. Blood 05/29/2024 2:13 AM EDT 05/29/2024 2:27 AM EDT Narrative Resulting Agency Comment Spec In Lab Jerry Marin MD CHEMISTRY ORDERABLES [facility] [place] [address] * (ABNORMAL) POCT Glucose (05/29/2024 12:25 AM EDT) Glucose, POC 253(H) 65 - 199 mg/dL [facility] Comment: Supplemental ranges: <140 mg/dL before meals <180 mg/dL all other times of the day Blood 05/29/2024 12:2 5 AM EDT 05/29/2024 12:25 AM EDT Jrery Marin MD POINT OF CARE TEST O RDERABLES Performing Organization Address City/[facility]/ZIP Co de Phone Number [facility] [place] [address] * EKG 12 Lead (05/28/2024 7:54 PM EDT) Ventricular rate 78 BPM MUSE SYSTEM Atrial Rate 78 BPM MUSE SYSTEM P-R Interval 156 ms MUSE SYSTEM QRS Duration 110 ms MUSE SYSTEM Q-T Interval 408 ms MUSE SYSTEM QTC Calculated (Bezet) 465 ms MUSE SYSTEM Calculated R [place] 6 degrees MUSE SYSTEM Calculated T [place] 8 degrees MUSE SYSTEM INTERPRETATION Sinus rhythm Occasional Premature ventricular complexes Cannot rule out Anterior infarct , age undetermined Abnormal ECG When compared with ECG of 22-AUG-2013 07:45, Premature ventricular complexes are now Present Confirmed by MD Sher, Josh ([id number]) on 05/29/2024 5:47:25 AM MUSE SYSTEM 05/28/2024 7:54 PM EDT 05/29/2024 5:47 AM EDT Arthur Patel DO ECG ORDERABLES Performing Organization Address [facility] Co de Phone Number MUSE SYSTEM * Type and Screen Validity (05/28/2024 6:20 PM EDT) Pathologist [facility] T&S only valid at [facility] Comment:This Type and Screen result is only valid at the [facility] Blood 05/28/2024 6:20 PM EDT 05/28/2024 6:24 PM EDT Narrative Resulting Agency Comment Spec In Lab María Ugalde MD BLOOD BANK LAB ORDER RANDELL Performing Organization Address City/[facility]/ZIP Co de Phone Number [facility] [place] [address] * ABORH Recheck Status (05/28/2024 6:20 PM EDT) ABORH Type Recheck Completed [facility] Blood 05/28/2024 6:20 PM EDT 05/28/2024 6:24 PM EDT Narrative Resulting Agency Comment Spec In Lab María Ugalde MD BLOOD BANK LAB ORDER RANDELL Performing Organization Address City/[facility]/ZIP Co de Phone Number [facility] [place] [address] * Gold Tube HOLD (05/28/2024 6:20 PM EDT) Gold Hold Sample in lab. [facility] Blood Venous Draw / Unknown 05/28/2024 6:20 PM EDT 05/28/2024 6:25 PM EDT Juan Santana MD CHEMISTRY ORDERABLES Performing Organization Address City/[facility] Co de Phone Number [facility] [place] [address] * Differential, Automated (05/28/2024 6:20 PM EDT) Neutrophil % 56.3 % [facility] Neutrophil Absolute 3.94 1.70 - 6.10 x10(3)/[facility] Lymph % 32.7 % [facility] Lymphocytes Abs 2.3 0.9 - 3.2 x10(3)/[facility] Monocyte % 6.7 % [facility] Monocyte Abs 0.5 0.3 - 0.9 x10(3)/[facility] Eos % 3.0 % [facility] Eosinophils Abs 0.2 0.0 - 0.4 x10(3)/[facility] Basophil % 1.0 % [facility] Baso Absolute 0.1 0.0 - 0.1 x10(3)/[facility] Immature Gran % 0.30 % [facility] Comment: Immature granulocytes(IG's)percentage and absolute count will include metamyelocytes, myelocytes, and promyelocytes. Blood smears from CBCs yielding IG's will be scanned manually for concordance. If this scan disagrees with the automated IG or if promyelocytes are noted, a manual differential will be performed. Immature Gran Absolute 0.02 0.00 - 0.04 x10(3)/mcL [facility] Blood 05/28/2024 6:20 PM EDT 05/28/2024 6:24 PM EDT Narrative Resulting Agency Comment Spec In Lab Juan Santana MD HEMATOLOGY ORDERABLE S [facility] [place] [address] * (ABNORMAL) Hemogram (05/28/2024 6:20 PM EDT) White Blood Cell 7.0 4.0 - 9.5 x10(3)/ L [facility] Red Blood Cell 4.67 4.58 - 5.54 x10(6)/[facility] Hemoglobin 14.1 13.7 - 16.5 g/dL [facility] Hematocrit 39.7(L) 40.5 - 48.5 % [facility] Mean Cell Volume 85.0 82.9 - 93.1 [facility] Mean Cell Hemoglobin 30.2 27.5 - 32.1 pg [facility] Mean Cell Hemoglobin Concentration 35.5 32.0 - 35.7 g/dL [facility] Platelet 162 145 - 357 x10(3)/mc L [facility] RDW Standard Deviation 35.3(L) 36.0 - 45.0 [facility] RDW coefficient of variation 11.5 11.4 - 13.8 % [facility] Mean Platelet Volume 10.8 7.6 - 12.9 [facility] NRBC% auto 0.0 % [facility] NRBC Absolute 0.000 0.000 - 0.000 x10(3)/ L [facility] Blood 05/28/2024 6:20 PM EDT 05/28/2024 6:24 PM EDT Narrative Resulting Agency Comment Spec In Lab Juan Santana MD HEMATOLOGY ORDERABLE S [facility] [place] [address] * Type and screen ([facility]) (05/28/2024 6:20 PM EDT) ABORH Type A POSITIVE [facility] Patient BB History Found [facility] Expires at [id number] on: 05-31-2024 [facility] Ab Screen Interp Negative [facility] Blood 05/28/2024 6:20 PM EDT 05/28/2024 6:20 PM EDT Narrative [facility] - 05/28/2024 6:20 PM EDT This Type and Screen result is only valid at the [facility] Resulting Agency Comment Spec In Lab María Ugalde MD BLOOD BANK LAB ORDER RANDELL Performing Organization Address [facility]/ZIP Co de Phone Number [facility] [place] [address] * Lactate, whole blood, send to lab ([facility] (05/28/2024 6:20 PM EDT) Pathologist [facility] Lactate WB 1.6 0.5 - 2.2 mmol/L [facility] Blood 05/28/2024 6:20 PM EDT 05/28/2024 6:23 PM EDT Narrative Resulting Agency Comment Spec In Lab Arthur Patel DO CHEMISTRY ORDERABLES Performing Organization Address City/[facility]/ZIP Co de Phone Number [facility] [place] [address] * APTT (05/28/2024 6:20 PM EDT) Partial Thromboplastin Time 26 25 - 37 sec [facility] Comment: The PTT is NOT appropriate for heparin monitoring. Use the Anti-Xa level for heparin monitoring (HEP UFH) or LMWH monitoring (HEP LMW). A PTT less than 37 seconds generally indicates adequate hemostasis. Blood 05/28/2024 6:20 PM EDT 05/28/2024 6:24 PM EDT Narrative Resulting Agency Comment Spec In Lab Arthur Patel HEMATOLOGY ORDERABLE S Performing Organization Address [facility] Co de Phone Number [facility] [place] [address] * Prothrombin Time (05/28/2024 6:20 PM EDT) Prothrombin Time 10.6 9.4 - 12.5 sec [facility] International Normalization Ratio 0.9 [facility] Comment: An INR <2.0 indicates adequate [...] DO HEMATOLOGY ORDERABLE S Performing Organization Address [facility]/ZIP Co de Phone Number [facility] [place] [address] * (ABNORMAL) Basic Metabolic Panel (non-fasting) (05/28/2024 6:20 PM EDT) Glucose 286(H) 65 - 199 mg/dL [facility] Comment:Diabetes: >=200 mg/d L plus symptoms Blood Urea Nitrogen 9(L) 10 - 20 mg/dL [facility] Creatinine 0.53(L) 0.80 - 1.50 mg/dL [facility] Sodium 135 135 - 145 mmol/L [facility] Potassium 3.9 3.5 - 5.0 mmol/L [facility] Comment: Please note: ??Patients with WBC >100,000 may have falsely elevated Potassium levels. ??For accurate Potassium quantification in these patients send serum separator tube (gold top) for subsequent determinations. ??Contact the Clinical Chemistry Laboratory if there are any questions. Chloride 99 98 - 107 mmol/L [facility] Carbon Dioxide 25 22 - 31 mmol/L [facility] Anion Gap 11 5 - 15 mmol/L [facility] Calcium 9.2 8.5 - 10.5 mg/dL [facility] Est Glomerular Filtration Rate 122 >=60 mL/min/1. 73 m?? [facility] Comment: This patient's estimated GFR was [...] and symptoms in addition to eGFR. Blood 05/28/2024 6:20 PM EDT 05/28/2024 6:24 PM EDT Narrative Resulting Agency Comment Spec In Lab Arthur Patel DO CHEMISTRY ORDERABLES [facility] [place] [address] * (ABNORMAL) POCT Glucose (05/28/2024 5:46 PM EDT) Glucose, POC 262(H) 65 - 199 mg/dL [facility] Comment: Supplemental ranges: <140 mg/dL before meals <180 mg/dL all other times of the day Blood 05/28/2024 5:46 PM EDT 05/28/2024 5:46 PM EDT Md Emergency Dept POINT OF CARE TEST ORDERABLES [facility] [place] [address] documented in this encounter Visit Diagnoses Diagnosis Critical limb ischemia of left lower extremity- Primary Limb ischemia Unspecified circulatory system disorder Critical limb ischemia of left lower extremity documented in this encounter Admitting Diagnoses Diagnosis Critical limb ischemia of left lower extremity documented in this encounter Administered Medications Inactive Administered Medications - up to 3 most recent administrations Medication Order MAR Action Action Date Dose Rate Site acetaminophen (Tylenol) tablet 975 mg 975 mg, Oral, EVERY 6 HOURS SCHEDULED, First dose on 05/28/24 at 2002, Until Discontinued, Administer for pain or temperature greater than or equal to 38.2 degrees Celsius. Maximum daily dose of acetaminophen from all sources not to exceed 4,000 mg. When ordered for pain, acetaminophen should be given even when other ordered pain medications are indicated., Routine Given 06/02/2024 5:45 PM EDT 975 mg Given 06/02/2024 11:43 AM EDT 975 mg Given 06/02/2024 5:38 AM EDT 975 mg aspirin EC tablet 81 mg 81 mg, Oral, DAILY, First dose on 05/28/24 at 2003, Until Discontinued, Routine Given 06/02/2024 8:39 AM EDT 81 mg Given 06/01/2024 8:12 AM EDT 81 mg Given 05/31/2024 8:19 AM EDT 81 mg atorvastatin (Lipitor) tablet 80 mg 80 mg, Oral, EVERY EVENING, First dose on 05/29/24 at 1700, Until Discontinued, Routine Given 06/02/2024 4:07 PM EDT 80 mg Given 06/01/2024 4:40 PM EDT 80 mg Given 05/31/2024 4:04 PM EDT 80 mg benzonatate (Tessalon) capsule 100 mg 100 mg, Oral, 3 TIMES DAILY, First dose on 05/28/24 at 2110, Until Discontinued, DO NOT CRUSH OR OPEN, Routine Given 06/02/2024 4:00 PM EDT 100 mg Given 06/02/2024 8:40 AM EDT 100 mg Given 06/01/2024 8:20 PM EDT 100 mg ceFAZolin (Ancef) 2 g vial attach to sodium chloride 0.9% 100 mL Mini-Bag Plus 2 g, Intravenous, EVERY 8 HOURS, First dose on Angelita 06/01/24 at 1215, Until Discontinued, Administer over 30 Minutes, Indication for (Active or Suspected): Skin/Skin Structure New Bag 06/02/2024 11:43 AM EDT 2 g 200 mL/hr New Bag 06/02/2024 4:36 AM EDT 2 g 200 mL/hr New Bag 06/01/2024 8:19 PM EDT 2 g 200 mL/hr cholecalciferoL (Vitamin D3) tablet 1,000 Units 1,000 Units, Oral, DAILY, First dose on Wed05/29/24 at 0900, Until Discontinued, 40 units is equivalent to 1 mcg of cholecalciferol., Routine Given 06/02/2024 8:39 AM EDT 1,000 Units Given 06/01/2024 8:12 AM EDT 1,000 Units Given 05/31/2024 8:19 AM EDT 1,000 Units dextrose 10% infusion 250 mL, at 1,000 mL/hr, Intravenous, EVERY 15 MIN PRN, Starting on Wed05/29/24 at 1514, Until Wed06/02/24 at 2045, For BG 50-70 mg/dL: Oral treatment preferred: If able to drink, give 120 mL juice or regular (not diet) soda OR if NPO, give 15 gram glucose 40% oral gel massaged into buccal mucosa OR if unconscious or uncooperative, give 25 gram (250 mL) dextrose 10% IV over 15 minutes per protocol OR, if no IV access, 1 mg glucagon IM. For BG less than 50 mg/dL: Oral treatment preferred: If able to drink, give 240 mL juice or regular (not diet) soda OR if NPO, give 30 gram glucose 40% oral gel massaged in buccal mucosa OR if unconscious or uncooperative, give 25 gram (250 mL) dextrose 10% IV over 15 minutes per protocol OR, if no IV access, 1 mg glucagon IM. Recheck BG in 15 minutes. May repeat juice/soda, gel, dextrose or glucagon once per episode. Notify provider if hypoglycemia does not resolve after two treatments. Providers should consider the following: administering longer-acting treatments for the duration of active insulin or hypoglycemia agent for persistent hypoglycemia and re-evaluating active insulin orders before administering the next dose. glucagon (Glucagen) (1 mg/mL) injection solution 1 mg 1 mg, Intramuscular, EVERY 15 MIN PRN, Starting on Wed05/29/24 at 1514, Until Wed06/02/24 at 2044, Low blood sugar, For BG 50-70 mg/dL: Oral treatment preferred: If able to drink, give 120 mL juice or regular (not diet) soda OR if NPO, give 15 gram glucose 40% oral gel massaged into buccal mucosa OR if unconscious or uncooperative, give 25 gram (250 mL) dextrose 10% IV over 15 minutes per protocol OR, if no IV access, 1 mg glucagon IM. For BG less than 50 mg/dL: Oral treatment preferred: If able to drink, give 240 mL juice or regular (not diet) soda OR if NPO, give 30 gram glucose 40% oral gel massaged in buccal mucosa OR if unconscious or uncooperative, give 25 gram (250 mL) dextrose 10% IV over 15 minutes per protocol OR, if no IV access, 1 mg glucagon IM. Recheck BG in 15 minutes. May repeat juice/soda, gel, dextrose or glucagon once per episode. Notify provider if hypoglycemia does not resolve after two treatments. Providers should consider the following: administering longer-acting treatments for the duration of active insulin or hypoglycemia agent for persistent hypoglycemia and re-evaluating active insulin orders before administering the next dose. , Routine glucose (Glutose) 40% oral geL 15-30 g of glucose, Buccal, EVERY 15 MIN PRN, Starting on Wed05/29/24 at 1514, Until Wed06/02/24 at 2044, Low blood sugar, For BG 50-70 mg/dL: Oral treatment preferred: If able to drink, give 120 mL juice or regular (not diet) soda OR if NPO, give 15 gram glucose 40% oral gel massaged into buccal mucosa OR if unconscious or uncooperative, give 25 gram (250 mL) dextrose 10% IV over 15 minutes per protocol OR, if no IV access, 1 mg glucagon IM. For BG less than 50 mg/dL: Oral treatment preferred: If able to drink, give 240 mL juice or regular (not diet) soda OR if NPO, give 30 gram glucose 40% oral gel massaged in buccal mucosa OR if unconscious or uncooperative, give 25 gram (250 mL) dextrose 10% IV over 15 minutes per protocol OR, if no IV access, 1 mg glucagon IM. Recheck BG in 15 minutes. May repeat juice/soda, gel, dextrose or glucagon once per episode. Notify provider if hypoglycemia does not resolve after two treatments. Providers should consider the following: administering longer-acting treatments for the duration of active insulin or hypoglycemia agent for persistent hypoglycemia and re-evaluating active insulin orders before administering the next dose. 1 tube of Glutose-15 contains 15 grams of glucose (net weight of tube = 37.5 grams.), Routine heparin (porcine) (1,000 units/mL) injection 8,000 Units 8,000 Units, Intravenous, ONCE, 1 dose, On Wed05/28/24 at 1955, INITIAL LOADING DOSE Maximum loading dose 8,000 units, Routine Given 05/28/2024 8:22 PM EDT 8,000 Units heparin (porcine) 50 units/mL in dextrose 5% 500 mL infusion 0-5,000 Units/hr (0-100 mL/hr), Intravenous, CONTINUOUS, Starting on Wed05/28/24 at 1955, Until Wed06/02/24 at 0917, Begin infusion at 1,900 units per hr (18 units/kg/hr). Maximum initial infusion rate is 2,000 units/hr. Infusion doses are rounded to the nearest 50 units. Target Heparin UFH Level (anti-Xa activity) = 0.3 - 0.7 international unit/mL Start adjustment schedule 6 hours after starting infusion. If Heparin UFH Level is: - Less than 0.1 international unit/mL: Administer PRN bolus and increase rate by 400 units per hr (4 units/kg/hr) - 0.1 - 0.19 international unit/mL: Administer PRN bolus and increase rate by 200 units per hr (2 units/kg/hr) - 0.2 - 0.29 international unit/mL: NO BOLUS and increase rate by 200 units per hr (2 units/kg/hr) - 0.3 - 0.7 international unit/mL: No change - 0.71 - 0.79 international unit/mL: NO BOLUS and decrease rate by 100 units per hr (1 units/kg/hr) - 0.8 - 0.99 international unit/mL: NO BOLUS and decrease rate by 200 units per hr (2 units/kg/hr) - Greater than or equal to 1.00 international unit/mL: Hold infusion for 60 minutes then decrease rate by 300 units per hour (3 units/kg/hr) Obtain Heparin UFH Level 6 hours after initiating heparin. Then 6 hours after each dose adjustment. When 2 consecutive Heparin UFH Level within target range of 0.3 - 0.7 international unit/mL, change Heparin UFH Level to once every 24 hours with A.M. labs while on heparin. RN to order required Heparin UFH Level - Per Protocol , Routine New Bag 06/01/2024 10:35 PM EDT 1,500 Units/hr 30 mL/hr New Bag 06/01/2024 6:29 AM EDT 1,500 Units/hr 30 mL/hr New Bag 05/31/2024 3:01 PM EDT 1,500 Units/hr 30 mL/hr HYDROmorphone (Dilaudid) (0.5 mg/0.5 mL) injection syringe 0.2-0.4 mg 0.2-0.4 mg, Intravenous, EVERY 4 HOURS PRN, Starting on Wed05/28/24 at 1950, Until Wed06/02/24 at 2044, Pain, For pain not well controlled at least 30 min after administration of oral regimen. For pain 4-6 give 0.2mg dilaudid. If pain not releived within 30 minutes give additional 0.2mg dilaudid. For pain 7-10 give 0.4mg dilaudid., For pain 4-6 give 0.2mg dilaudid. If pain not releived within 30 minutes give additional 0.2mg dilaudid. For pain 7-10 give 0.4mg dilaudid., Routine Given 06/01/2024 8:18 AM EDT 0.4 mg Given 05/29/2024 11:53 PM EDT 0.4 mg Given 05/29/2024 1:20 PM EDT 0.4 mg HYDROmorphone (Dilaudid) (0.5 mg/0.5 mL) injection syringe 0.3 mg 0.3 mg, Intravenous, ONCE, 1 dose, On Wed05/31/24 at 0830, Please give immediately prior to going for Duplex ultrasound., Routine Given 05/31/2024 8:18 AM EDT 0.3 mg insulin glargine-ygfn (Semglee) (100 unit/mL) subcutaneous injection vial 15 Units 15 Units, Subcutaneous, DAILY, First dose on Wed05/29/24 at 1630, Until Discontinued, Routine Given 05/29/2024 5:29 PM EDT 15 Units insulin glargine-ygfn (Semglee) (100 unit/mL) subcutaneous injection vial 20 Units 20 Units, Subcutaneous, DAILY, First dose (after last modification) on Wed05/30/24 at 0930, Until Discontinued, Routine Given 06/01/2024 8:25 AM EDT 20 Units Given 05/31/2024 8:41 AM EDT 20 Units Given 05/30/2024 8:46 AM EDT 20 Units insulin glargine-ygfn (Semglee) (100 unit/mL) subcutaneous injection vial 28 Units 28 Units, Subcutaneous, DAILY, First dose (after last modification) on Wed06/02/24 at 0900, Until Discontinued, Routine Given 06/02/2024 9:03 AM EDT 28 Unit s insulin glargine-ygfn (Semglee) (100 unit/mL) subcutaneous injection vial 8 Units 8 Units, Subcutaneous, ONCE, 1 dose, On Wed06/01/24 at 1215, Routine Given 06/01/2024 11:53 AM EDT 8 Units insulin lispro (HumaLOG;Admelog) (100 unit/mL) subcutaneous injection vial 1 Units 1 Units, Subcutaneous, 3 TIMES DAILY WITH MEALS, First dose on Wed05/30/24 at 1300, Until Discontinued, [employer] Give 1 unit: 8 grams of carbohydrate Hold if not eating or if BG less than 70 mg/dL., Routine Given 05/30/2024 12:52 PM EDT 5 Units insulin lispro (HumaLOG;Admelog) (100 unit/mL) subcutaneous injection vial 1-10 Units 1-10 Units, Subcutaneous, 3 TIMES DAILY BEFORE MEALS, First dose on Wed05/29/24 at 1630, Until Discontinued, [employer] Give 1 unit: 8 grams of carbohydrate Hold if not eating or if BG less than 70 mg/dL., Routine Given 05/29/2024 5:29 PM EDT 6 Units insulin lispro (HumaLOG;Admelog) (100 unit/mL) subcutaneous injection vial 1-10 Units 1-10 Units, Subcutaneous, 3 TIMES DAILY WITH MEALS, First dose (after last modification) on Wed05/31/24 at 1200, Until Discontinued, MEAL ASSOCIATED Give 1 unit: 8 grams of carbohydrate Hold if not eating or if BG less than 70 mg/dL., Routine Given 05/31/2024 6:48 PM EDT 9 Units insulin lispro (HumaLOG;Admelog) (100 unit/mL) subcutaneous injection vial 1-13 Units 1-13 Units, Subcutaneous, 3 TIMES DAILY WITH MEALS, First dose (after last modification) on Wed06/01/24 at 1215, Until Discontinued, MEAL ASSOCIATED Give 1 unit: 6 grams of carbohydrate Hold if not eating or if BG less than 70 mg/dL., Routine Given 06/02/2024 5:42 PM EDT 5 Units Given 06/02/2024 1:30 PM EDT 10 Units Given 06/02/2024 9:00 AM EDT 8 Units insulin lispro (HumaLOG;Admelog) (100 unit/mL) subcutaneous injection vial 1-13 Units 1-13 Units, Subcutaneous, 3 TIMES DAILY PRN, Starting on Wed06/01/24 at 1123, Until Wed06/02/24 at 2045, with snacks, SNACK ASSOCIATED Give 1 unit for every 6 grams carbohydrate. Hold if not eating or if BG less than 70 mg/dL., Routine Given 06/01/2024 4:48 PM EDT 1 Units Given 06/01/2024 1:42 PM EDT 8 Units insulin lispro (HumaLOG;Admelog) (100 unit/mL) subcutaneous injection vial 1-6 Units 1-6 Units, Subcutaneous, EVERY 4 HOURS SCHEDULED, First dose on Wed05/29/24 at 0000, Until Discontinued, CORRECTION BOLUS [1-6 Units] Moderate Sliding Scale (BG in mg/dL): Correction factor 20 (1 unit of insulin is expected to drop the glucose 20 mg/dL) BG 140 - 160 Give 1 unit BG 161 - 180 Give 2 units BG 181 - 200 Give 3 units BG 201 - 220 Give 4 units BG 221 - 240 Give 5 units BG greater than 240, give 6 units and recheck BG in 2 hours. - If recheck BG is LESS than 240, give no insulin and resume schedule. - If recheck BG is GREATER than or EQUAL to 240, give 6 units and repeat BG in 2 hours (no more than 3 times) & call for new insulin orders. DO NOT hold if NPO, unless specifically directed to do so by written order. ?? Per Inpatient Subcutaneous Insulin Policy, recheck a BG of greater than 240 mg/dL in 2 hours., Routine Given 05/29/2024 1:25 PM EDT 6 Units Given 05/29/2024 8:58 AM EDT 1 Units Given 05/29/2024 4:05 AM EDT 4 Units insulin lispro (HumaLOG;Admelog) (100 unit/mL) subcutaneous injection vial 1-6 Units 1-6 Units, Subcutaneous, 3 TIMES DAILY BEFORE MEALS, First dose on Wed05/30/24 at 1300, Until Discontinued, CORRECTION BOLUS [1-6 Units] Moderate Sliding Scale (BG in mg/dL): Correction factor 20 (1 unit of insulin is expected to drop the glucose 20 mg/dL) BG 140 - 160 Give 1 unit BG 161 - 180 Give 2 units BG 181 - 200 Give 3 units BG 201 - 220 Give 4 units BG 221 - 240 Give 5 units BG greater than 240, give 6 units and recheck BG in 2 hours. - If recheck BG is LESS than 240, give no insulin and resume schedule. - If recheck BG is GREATER than or EQUAL to 240, give 6 units and repeat BG in 2 hours & call for new insulin orders. DO NOT hold if NPO, unless specifically told to do so. ?? Per Inpatient Subcutaneous Insulin Policy, recheck a BG of greater than 240 mg/dL in 2 hours., Routine Given 05/31/2024 7:30 AM EDT 5 Units Given 05/30/2024 5:44 PM EDT 2 Units Given 05/30/2024 12:52 PM EDT 3 Units insulin lispro (HumaLOG;Admelog) (100 unit/mL) subcutaneous injection vial 1-9 Units 1-9 Units, Subcutaneous, 4 TIMES DAILY BEFORE MEALS & NIGHTLY, First dose (after last modification) on Wed05/31/24 at 1130, Until Discontinued, CORRECTION BOLUS [1-9 Units] Moderate Sliding Scale (BG in mg/dL): Correction factor 20 (1 unit of insulin is expected to drop the glucose 20 mg/dL) BG 140 - 160 Give 1 unit BG 161 - 180 Give 2 units BG 181 - 200 Give 3 units BG 201 - 220 Give 4 units BG 221 - 240 Give 5 units BG 241 - 260 Give 6 units BG 261 - 280 Give 7 units BG 281 - 300 Give 8 units BG greater than 300, give 9 units and recheck BG in 2 hours after dose administered. For 2hr recheck dose: If recheck BG remains greater than 240, GIVE 3 units. If recheck BG is less than 240 after two hours, give no insulin and resume prior schedule. DO NOT hold if NPO, unless specifically directed to do so by written order. Per Blood Glucose Monitoring Policy, re-check a BG of > 240 mg/dL in 2 hours , Routine Given 06/02/2024 4:12 PM EDT 4 Units Given 06/02/2024 11:30 AM EDT 7 Units Given 06/01/2024 8:23 PM EDT 5 Units iohexoL (Omnipaque) (350 mg/mL) solution 0-200 mL 0-200 mL, Intravenous, ONCE PRN, 1 dose, Starting on Wed05/30/24 at 1928, Until Wed05/30/24 at 1928, Per Protocol, Warning Vesicant/Irritant Medication , Radiology Contrast, Routine Given 05/30/2024 7:28 PM EDT 110 mLs lactated ringers infusion 1,000 mL, at 100 mL/hr, Intravenous, CONTINUOUS, Starting on Wed05/28/24 at 2003, Until Wed05/29/24 at 1047 New Bag 05/29/2024 9:41 AM EDT 1,000 mLs 100 m L/hr New Bag 05/28/2024 8:36 PM EDT 1,000 mLs 100 mL/hr lidocaine (Xylocaine) 1% (10 mg/mL) injection 3 mg 3 mg (0.3 mL), Subcutaneous, ONCE PRN, 1 dose, Starting on Wed05/28/24 at 1943, Until Wed06/02/24 at 2044, for discomfort with PIV insertion, Routine losartan (Cozaar) tablet 50 mg 50 mg, Oral, DAILY, First dose on Wed05/30/24 at 1200, Until Discontinued, Routine Given 06/02/2024 8:40 AM EDT 50 mg Given 06/01/2024 8:12 AM EDT 50 mg Given 05/31/2024 8:18 AM EDT 50 mg magnesium sulfate 2 g in sterile water 50 mL infusion 2 g, Intravenous, ONCE, 1 dose, On Wed05/29/24 at 0630, Administer over 120 Minutes New Bag 05/29/2024 5:49 AM EDT 2 g 25 mL/hr methylphenidate (Ritalin) tablet 20 mg 20 mg, Oral, 3 TIMES DAILY BEFORE MEALS, First dose on Wed05/29/24 at 0730, Until Discontinued, Routine Given 06/02/2024 4:08 PM EDT 20 mg Given 06/02/2024 11:43 AM EDT 20 mg Given 06/02/2024 8:30 AM EDT 20 mg metoprolol succinate XL (Toprol-XL) tablet 25 mg 25 mg, Oral, DAILY, First dose on Wed05/30/24 at 1200, Until Discontinued, DO NOT CRUSH OR OPEN, Routine Given 06/02/2024 8:39 AM EDT 25 mg Given 06/01/2024 8:12 AM EDT 25 mg Given 05/31/2024 8:18 AM EDT 25 mg modafiniL (Provigil) tablet 200 mg 200 mg, Oral, 2 TIMES DAILY, First dose on Wed05/29/24 at 0900, Until Discontinued, Routine Given 06/02/2024 5:45 PM EDT 200 mg Given 06/02/2024 8:38 AM EDT 200 mg Given 06/01/2024 6:00 PM EDT 200 mg naloxone (Narcan) (0.4 mg/mL) injection 0.4 mg 0.4 mg, Intravenous, ONCE PRN, 1 dose, Starting on Wed05/30/24 at 1627, Until Wed06/02/24 at 2044, Opioid Reversal, Please provide if patient is in respiratory distress with low respiratory drive, somnolence and other signs and symptoms of opioid overdose, STAT nicotine (Nicoderm CQ) 14 mg/24 hr patch 14 mg 14 mg (1 patch), Transdermal, Administer over 24 Hours, DAILY, First dose on Wed05/28/24 at 2003, Until Discontinued, Apply new patch to clean, dry, hair-free skin on the upper body or upper outer arm; each patch should be applied to a different site., Routine Patch Applied 06/02/2024 8:46 AM EDT 14 mg 03- Shoulder (Left) Patch Applied 06/01/2024 8:14 AM EDT 14 mg 03- Shoulder (Left) Patch Applied 05/31/2024 8:31 AM EDT 14 mg 03- Shoulder (Left) nicotine (Nicoderm CQ) 14 mg/24 hr patch Patch Verification Transdermal, 2 TIMES DAILY, First dose on Wed05/29/24 at 0749, Until Discontinued, Verify nicotine 14 mg/24 hr patch. oxyCODONE (Roxicodone) tablet 5 mg 5 mg, Oral, ONCE, 1 dose, On Wed05/31/24 at 0830, Please give roughly one hour prior to going for Duplex ultrasound this morning once placed on schedule, can give in addition to his currently ordered PRN oxycodone. , Routine Given 05/31/2024 8: 19 AM EDT 5 mg oxyCODONE (Roxicodone) tablet 5-10 mg 5-10 mg, Oral, EVERY 4 HOURS PRN, Starting on Wed05/28/24 at 1951, Until Wed06/02/24 at 2045, Pain, for pain 4-6 give 5mg oxy, if not releived in 30 minutes give additional 5mg. For pain 7-10 give 10mg oxy., For pain 4-6 give 5mg oxy, if not releived in 30 minutes give additional 5mg. For pain 7-10 give 10mg oxy., Routine Given 06/02/2024 1:42 PM EDT 10 mg Given 06/02/2024 8:40 AM EDT 10 mg Given 06/02/2024 2:32 AM EDT 10 mg pantoprazole EC (Protonix) tablet 40 mg 40 mg, Oral, DAILY, First dose on Wed05/29/24 at 0900, Until Discontinued, DO NOT CRUSH OR OPEN, Routine Given 06/02/2024 8:38 AM EDT 40 mg Given 06/01/2024 8:12 AM EDT 40 mg Given 05/31/2024 8:18 AM EDT 40 mg perflutren protein-A microsphers (Optison) (0.22 mg/mL) injection 0.5 mL 0.5 mL, Intravenous, ONCE PRN, 1 dose, Starting on Wed05/29/24 at 1329, Until Wed05/29/24 at 1330, for enhancement of sub-optimal echo images, Echo Lab (Intra-Procedure), Routine Given 05/29/2024 1:30 PM EDT 0.5 mLs potassium chloride 10 mEq in sterile water 100 mL infusion 10 mEq, Intravenous, EVERY HOUR, 4 doses, First dose on Wed05/29/24 at 0700, Last dose on Wed05/29/24 at 1000, Administer over 60 Minutes, For serum K 3.3 - 3.8 mMol/L - Give 10 mEq IV x four doses (40 mEq total) Warning Vesicant/Irritant Medication New Bag 05/29/2024 10:04 AM EDT 10 mEq 100 mL/hr New Bag 05/29/2024 8:56 AM EDT 10 mEq 100 mL/hr New Bag 05/29/2024 7:49 AM EDT 10 mEq 100 mL/hr regadenoson (Lexiscan) injection 0.4 mg 0.4 mg, Intravenous, ONCE, 1 dose, On Wed05/30/24 at 1130, Radiology Contrast, Routine Given 05/30/2024 11:30 AM EDT 0.4 mg senna-docusate (Pericolace) 8.6-50 mg per tablet 2 tablet 2 tablet, Oral, 2 TIMES DAILY, First dose on Wed05/28/24 at 2100, Until Discontinued, Hold for loose stool. , Routine Given 06/02/2024 8:39 AM EDT 2 tablets Given 06/01/2024 8:20 PM EDT 2 tablets Given 06/01/2024 8:12 AM EDT 2 tablets sodium chloride 0.9 % (flush) (BD PosiFlush Normal Saline 0.9) flush 5 mL 5 mL, Intravenous, 2 TIMES DAILY, First dose on Wed05/28/24 at 2100, Until Discontinued, Routine Given 06/02/2024 9:06 AM EDT 5 mLs Given 06/01/2024 8:21 PM EDT 5 mLs Given 06/01/2024 8:13 AM EDT 5 mLs sodium chloride 0.9 % (flush) (BD PosiFlush Normal Saline 0.9) flush 5-20 mL 5-20 mL, Intravenous, EVERY 1 MIN PRN, Starting on Wed05/28/24 at 1943, Until Wed06/02/24 at 2045, flush, Flush pertains to all indwelling lines. Flush per protocol found in the job aid using the link provided on this medication record., Routine technetium (Tc-99m) sestamibi injection 0-30 mCi 0-30 mCi, Intravenous, 2 TIMES DAILY PRN, 2 doses, Starting on Wed05/30/24 at 0939, Until Wed05/30/24 at 1035, Per Protocol, Radiology Contrast, Routine Given 05/30/2024 10:35 AM EDT 30 mCi Right Arm Given 05/30/2024 9:36 AM EDT 9.8 mCi Ri ght Arm venlafaxine XR (Effexor-XR) capsule 225 mg 225 mg, Oral, DAILY WITH BREAKFAST, First dose on Wed05/29/24 at 0800, Until Discontinued, DO NOT CRUSH OR OPEN, Routine Given 06/02/2024 8:39 AM EDT 225 mg Given 06/01/2024 8:12 AM EDT 225 mg Given 05/31/2024 8:18 AM EDT 225 mg documented in this encounter Active and Recently Administered Medications Times are shown in EDT. Scheduled Medication Order 05/31/2024 06/01/2024 06/02/2024 acetaminophen (Tylenol) tablet 975 mg 975 mg, Oral, EVERY 6 HOURS SCHEDULED, First dose on Wed05/28/24 at 2003, Until Discontinued, Administer for pain or temperature greater than or equal to 38.2 degrees Celsius. Maximum daily dose of acetaminophen from all sources not to exceed 4,000 mg. When ordered for pain, acetaminophen should be given even when other ordered pain medications are indicated., Routine 0000 (Not Given - Provider: Maribel Lazo RN - Reason: Patient/family refused)0634 (Given - Provider: Maribel Lazo RN)1244 (Given - Provider: Anuj Liu RN)1734 (Given - Provider: Anuj Liu RN)2331 (Given - Provider: Maribel Lazo RN) 0448 (Given - Provider: Maribel Lazo RN)1236 (Given - Provider: Anuj Liu RN)1800 (Given - Provider: Anuj Liu RN)2350 (Given - Provider: Lizett Simmons RN) 0538 (Given - Provider: Lizett Simmons RN)1143 (Given - Provider: Anuj Liu RN)1745 (Given - Provider: Anuj Liu RN) aspirin EC tablet 81 mg 81 mg, Oral, DAILY, First dose on 05/28/24 at 2003, Until Discontinued, Routine 0819 (Given - Provider: Anuj Liu RN) 0812 (Given - Provider: Venus Issa RN) 0839 (Given - Provider: Anuj Liu RN) atorvastatin (Lipitor) tablet 80 mg 80 mg, Oral, EVERY EVENING, First dose on Wed05/29/24 at 1700, Until Discontinued, Routine 1604 (Given - Provider: Anuj Liu RN) 1640 (Given - Provider: Anuj Liu RN) 1607 (Given - Provider: Anuj Liu RN) benzonatate (Tessalon) capsule 100 mg 100 mg, Oral, 3 TIMES DAILY, First dose on 05/28/24 at 2110, Until Discontinued, DO NOT CRUSH OR OPEN, Routine 0818 (Given - Provider: Anuj Liu RN)1734 (Given - Provider: Anuj Liu RN - Comment: Unable to access omnicell containing this med)2100 (Not Given - Provider: Maribel Lazo RN - Reason: Patient/family refused) 0812 (Given - Provider: Venus Issa RN)1640 (Given - Provider: Anuj Liu RN)2020 (Given - Provider: Lizett Simmons RN) 0840 (Given - Provider: Anuj Liu RN)1600 (Given - Provider: Anuj Liu RN) ceFAZolin (Ancef) 2 g vial attach to sodium chloride 0.9% 100 mL Mini-Bag Plus 2 g, Intravenous, EVERY 8 HOURS, First dose on Wed06/01/24 at 1215, Until Discontinued, Administer over 30 Minutes, Indication for (Active or Suspected): Skin/Skin Structure 1240 (New Bag - Provider: Anuj Liu RN)1310 (Stopped - Provider: Jeana Cabrera LPN)2019 (New Bag - Provider: Lizett Simmons RN)204 (Stopped - Provider: Lizett Simmons RN) 0436 (New Bag - Provider: Lizett Simmons RN)0506 (Stopped - Provider: Lizett Simmons, DAVID)1143 (New Bag - Provider: Anuj Liu RN)1213 (Stopped - Provider: Anuj Liu RN) cholecalciferoL (Vitamin D3) tablet 1,000 Units 1,000 Units, Oral, DAILY, First dose on Wed05/29/24 at 0900, Until Discontinued, 40 units is equivalent to 1 mcg of cholecalciferol., Routine 0819 (Given - Provider: Anuj Liu RN) 08 (Given - Provider: Venus Issa, DAVID) 0839 (Given - Provider: Anuj Liu RN) HYDROmorphone (Dilaudid) (0.5 mg/0.5 mL) injection syringe 0.3 mg (COMPLETED) 0.3 mg, Intravenous, ONCE, 1 dose, On Wed05/31/24 at 0830, Please give immediately prior to going for Duplex ultrasound., Routine 0818 (Given - Provider: Anuj Liu RN) insulin glargine-ygfn (Semglee) (100 unit/mL) subcutaneous injection vial 20 Units (CANCELED) 20 Units, Subcutaneous, DAILY, First dose (after last modification) on Wed05/30/24 at 0930, Until Discontinued, Routine 0841 (Given - Provider: Anuj Liu RN) 0825 (Given - Provider: Venus Issa, DAVID) insulin glargine-ygfn (Semglee) (100 unit/mL) subcutaneous injection vial 28 Units 28 Units, Subcutaneous, DAILY, First dose (after last modification) on Wed06/02/24 at 0900, Until Discontinued, Routine 0903 (Given - Provider: Anuj Liu RN) insulin glargine-ygfn (Semglee) (100 unit/mL) subcutaneous injection vial 8 Units (COMPLETED) 8 Units, Subcutaneous, ONCE, 1 dose, On Wed06/01/24 at 1215, Routine 1153 (Given - Provider: Anuj Liu RN) insulin lispro (HumaLOG;Admelog) (100 unit/mL) subcutaneous injection vial 1-10 Units (CANCELED) 1-10 Units, Subcutaneous, 3 TIMES DAILY WITH MEALS, First dose (after last modification) on Wed05/31/24 at 1200, Until Discontinued, MEAL ASSOCIATED Give 1 unit: 8 grams of carbohydrate Hold if not eating or if BG less than 70 mg/dL., Routine 1300 (Not Given - Provider: Anuj Liu RN - Reason: Order parameters not met - Comment: Patient not eating at this time)1848 (Given - Provider: Lalitha Hernandez LPN) 0800 (Not Given - Provider: Anuj Liu RN - Reason: Order parameters not met - Comment: Patient not eating at this time) insulin lispro (HumaLOG;Admelog) (100 unit/mL) subcutaneous injection vial 1-13 Units 1-13 Units, Subcutaneous, 3 TIMES DAILY WITH MEALS, First dose (after last modification) on Wed06/01/24 at 1215, Until Discontinued, MEAL ASSOCIATED Give 1 unit: 6 grams of carbohydrate Hold if not eating or if BG less than 70 mg/dL., Routine 1152 (Given - Provider: Anuj Liu RN)1800 (Given - Provider: Anuj Liu RN) 0900 (Given - Provider: Anuj Liu RN)1330 (Given - Provider: Anuj Liu RN)1742 (Given - Provider: Anuj Liu RN) insulin lispro (HumaLOG;Admelog) (100 unit/mL) subcutaneous injection vial 1-6 Units (CANCELED) 1-6 Units, Subcutaneous, 3 TIMES DAILY BEFORE MEALS, First dose on Wed05/30/24 at 1300, Until Discontinued, CORRECTION BOLUS [1-6 Units] Moderate Sliding Scale (BG in mg/dL): Correction factor 20 (1 unit of insulin is expected to drop the glucose 20 mg/dL) BG 140 - 160 Give 1 unit BG 161 - 180 Give 2 units BG 181 - 200 Give 3 units BG 201 - 220 Give 4 units BG 221 - 240 Give 5 units BG greater than 240, give 6 units and recheck BG in 2 hours. - If recheck BG is LESS than 240, give no insulin and resume schedule. - If recheck BG is GREATER than or EQUAL to 240, give 6 units and repeat BG in 2 hours & call for new insulin orders. DO NOT hold if NPO, unless specifically told to do so. ?? Per Inpatient Subcutaneous Insulin Policy, recheck a BG of greater than 240 mg/dL in 2 hours., Routine 0730 (Given - Provider: Anuj Liu RN - Comment: BG 232) insulin lispro (HumaLOG;Admelog) (100 unit/mL) subcutaneous injection vial 1-9 Units(Linked Group 1) 1-9 Units, Subcutaneous, 4 TIMES DAILY BEFORE MEALS & NIGHTLY, First dose (after last modification) on Wed05/31/24 at 1130, Until Discontinued, CORRECTION BOLUS [1-9 Units] Moderate Sliding Scale (BG in mg/dL): Correction factor 20 (1 unit of insulin is expected to drop the glucose 20 mg/dL) BG 140 - 160 Give 1 unit BG 161 - 180 Give 2 units BG 181 - 200 Give 3 units BG 201 - 220 Give 4 units BG 221 - 240 Give 5 units BG 241 - 260 Give 6 units BG 261 - 280 Give 7 units BG 281 - 300 Give 8 units BG greater than 300, give 9 units and recheck BG in 2 hours after dose administered. For 2hr recheck dose: If recheck BG remains greater than 240, GIVE 3 units. If recheck BG is less than 240 after two hours, give no insulin and resume prior schedule. DO NOT hold if NPO, unless specifically directed to do so by written order. Per Blood Glucose Monitoring Policy, re-check a BG of > 240 mg/dL in 2 hours , Routine 1230 (Given - Provider: Anuj Liu RN - Comment: BG 200)163 (Given - Provider: Lalitha Hernandez LPN - Comment: [id number])2031 (Given - Provider: Maribel Lazo RN) 0819 (Given - Provider: Venus Issa RN - Comment: Bg 288)1151 (Given - Provider: Anuj Liu RN - Comment: BG 264)1646 (Given - Provider: Anuj Liu RN - Comment: BG 178)2023 (Given - Provider: Lizett Simmons RN) 0730 (Not Given - Provider: Anuj Liu RN - Reason: See comment - Comment: No CLIENT DELIVERY MANAGER on the unit, due to short staffing, BG was not able to be checked before patient began eating)1130 (Given - Provider: Anuj Liu RN - Comment: BG 270)1612 (Given - Provider: Anuj Liu RN - Comment: BG 203) losartan (Cozaar) tablet 50 mg 50 mg, Oral, DAILY, First dose on Wed05/30/24 at 1200, Until Discontinued, Routine 0818 (Given - Provider: Anuj Liu RN) 0812 (Given - Provider: Venus Issa RN) 0840 (Given - Provider: Anuj Liu RN) methylphenidate (Ritalin) tablet 20 mg 20 mg, Oral, 3 TIMES DAILY BEFORE MEALS, First dose on Wed05/29/24 at 0730, Until Discontinued, Routine 0634 (Given - Provider: Maribel Lazo RN)1244 (Given - Provider: Anuj Liu RN)1604 (Given - Provider: Anuj Liu RN) 0638 (Given - Provider: Maribel Lazo RN)1230 (Given - Provider: Anuj Liu RN)1639 (Given - Provider: Anuj Liu RN) 0830 (Given - Provider: Anuj Liu RN)1143 (Given - Provider: Anuj Liu RN)1608 (Given - Provider: Anuj Liu RN) metoprolol succinate XL (Toprol-XL) tablet 25 mg 25 mg, Oral, DAILY, First dose on Wed05/30/24 at 1200, Until Discontinued, DO NOT CRUSH OR OPEN, Routine 0818 (Given - Provider: Anuj Liu RN) 0812 (Given - Provider: Venus Issa RN) 0839 (Given - Provider: Anuj Liu RN) modafiniL (Provigil) tablet 200 mg 200 mg, Oral, 2 TIMES DAILY, First dose on Wed05/29/24 at 0900, Until Discontinued, Routine 0819 (Given - Provider: Anuj Liu RN)1734 (Given - Provider: Anuj Liu RN) 0957 (Given - Provider: Anuj Liu RN)1800 (Given - Provider: Anuj Liu RN) 0838 (Given - Provider: Anuj Liu RN)1745 (Given - Provider: Anuj Liu RN) nicotine (Nicoderm CQ) 14 mg/24 hr patch 14 mg(Linked Group 2) 14 mg (1 patch), Transdermal, Administer over 24 Hours, DAILY, First dose on Wed05/28/24 at 2003, Until Discontinued, Apply new patch to clean, dry, hair-free skin on the upper body or upper outer arm; each patch should be applied to a different site., Routine 0831 (Patch Applied - Provider: Anuj Liu RN) 0812 (Patch Removed - Provider: Venus Issa RN)0814 (Patch Applied - Provider: Venus Issa RN) 0814 (Patch Removed - Provider: Anuj Liu RN)0846 (Patch Applied - Provider: Anuj Liu RN)1845 (Due: Patch Removed - Provider: Automatic Discharge Provider - Comment: Time automatically adjusted from order being discontinued) nicotine (Nicoderm CQ) 14 mg/24 hr patch Patch Verification(Linked Group 2) Transdermal, 2 TIMES DAILY, First dose on Wed05/29/24 at 0749, Until Discontinued, Verify nicotine 14 mg/24 hr patch. 0900 (Patch (dose and location) verified - Provider: Anuj Liu RN)2100 (Patch (dose and location) verified - Provider: Maribel Lazo RN) 0900 (Patch (dose and location) verified - Provider: Venus Issa RN)2100 (Patch (dose and location) verified - Provider: Lizett Simmons RN - Comment: R UE) 0900 (Patch (dose and location) verified - Provider: Anuj Liu RN) oxyCODONE (Roxicodone) tablet 5 mg (COMPLETED) 5 mg, Oral, ONCE, 1 dose, On Wed05/31/24 at 0830, Please give roughly one hour prior to going for Duplex ultrasound this morning once placed on schedule, can give in addition to his currently ordered PRN oxycodone. , Routine 818 (Given - Provider: Anuj Liu RN) pantoprazole EC (Protonix) tablet 40 mg 40 mg, Oral, DAILY, First dose on Wed05/29/24 at 0900, Until Discontinued, DO NOT CRUSH OR OPEN, Routine 08 (Given - Provider: Anuj Liu RN) 08 (Given - Provider: Venus Issa, DAVID) 08 (Given - Provider: Anuj Liu RN) senna-docusate (Pericolace) 8.6-50 mg per tablet 2 tablet 2 tablet, Oral, 2 TIMES DAILY, First dose on Wed05/28/24 at 2100, Until Discontinued, Hold for loose stool. , Routine 08 (Given - Provider: Anuj Liu RN)2032 (Given - Provider: Maribel Lazo, DAVID) 08 (Given - Provider: Venus Issa, DAVID)2019 (Given - Provider: Lizett Simmons, DAVID) 0839 (Given - Provider: Anuj Liu RN) sodium chloride 0.9 % (flush) (BD PosiFlush Normal Saline 0.9) flush 5 mL 5 mL, Intravenous, 2 TIMES DAILY, First dose on Wed05/28/24 at 2100, Until Discontinued, Routine 0834 (Given - Provider: Anuj Liu RN)2032 (Given - Provider: Maribel Lazo, DAVID) 08 (Given - Provider: Venus Issa, DAVID)2020 (Given - Provider: Lizett Simmons, DAVID) 09 (Given - Provider: Anuj Liu RN) venlafaxine XR (Effexor-XR) capsule 225 mg 225 mg, Oral, DAILY WITH BREAKFAST, First dose on Wed05/29/24 at 0800, Until Discontinued, DO NOT CRUSH OR OPEN, Routine 0818 (Given - Provider: Anuj Liu RN) 0812 (Given - Provider: Venus Issa RN) 0839 (Given - Provider: Anuj Liu RN) Continuous Medication Order 05/31/2024 06/01/2024 06/02/2024 heparin (porcine) 50 units/mL in dextrose 5% 500 mL infusion (CANCELED)(Linked Group 3) 0-5,000 Units/hr (0-100 mL/hr), Intravenous, CONTINUOUS, Starting on Wed05/28/24 at 1955, Until Wed06/02/24 at 0917, Begin infusion at 1,900 units per hr (18 units/kg/hr). Maximum initial infusion rate is 2,000 units/hr. Infusion doses are rounded to the nearest 50 units. Target Heparin UFH Level (anti-Xa activity) = 0.3 - 0.7 international unit/mL Start adjustment schedule 6 hours after starting infusion. If Heparin UFH Level is: - Less than 0.1 international unit/mL: Administer PRN bolus and increase rate by 400 units per hr (4 units/kg/hr) - 0.1 - 0.19 international unit/mL: Administer PRN bolus and increase rate by 200 units per hr (2 units/kg/hr) - 0.2 - 0.29 international unit/mL: NO BOLUS and increase rate by 200 units per hr (2 units/kg/hr) - 0.3 - 0.7 international unit/mL: No change - 0.71 - 0.79 international unit/mL: NO BOLUS and decrease rate by 100 units per hr (1 units/kg/hr) - 0.8 - 0.99 international unit/mL: NO BOLUS and decrease rate by 200 units per hr (2 units/kg/hr) - Greater than or equal to 1.00 international unit/mL: Hold infusion for 60 minutes then decrease rate by 300 units per hour (3 units/kg/hr) Obtain Heparin UFH Level 6 hours after initiating heparin. Then 6 hours after each dose adjustment. When 2 consecutive Heparin UFH Level within target range of 0.3 - 0.7 international unit/mL, change Heparin UFH Level to once every 24 hours with A.M. labs while on heparin. RN to order required Heparin UFH Level - Per Protocol , Routine 1501 (New Bag - Provider: Anuj A Noe, RN) 0629 (New Bag - Provider: Maribel Lazo RN)2235 (New Bag - Provider: Lizett Simmons, DAVID) 1037 (Stopped - Provider: Anuj Liu RN) PRN Medication Order 05/31/2024 06/01/2024 06/02/2024 dextrose 10% infusion(Linked Group 4) 250 mL, at 1,000 mL/hr, Intravenous, EVERY 15 MIN PRN, Starting on Wed05/29/24 at 1514, Until Wed06/02/24 at 2044, For BG 50-70 mg/dL: Oral treatment preferred: If able to drink, give 120 mL juice or regular (not diet) soda OR if NPO, give 15 gram glucose 40% oral gel massaged into buccal mucosa OR if unconscious or uncooperative, give 25 gram (250 mL) dextrose 10% IV over 15 minutes per protocol OR, if no IV access, 1 mg glucagon IM. For BG less than 50 mg/dL: Oral treatment preferred: If able to drink, give 240 mL juice or regular (not diet) soda OR if NPO, give 30 gram glucose 40% oral gel massaged in buccal mucosa OR if unconscious or uncooperative, give 25 gram (250 mL) dextrose 10% IV over 15 minutes per protocol OR, if no IV access, 1 mg glucagon IM. Recheck BG in 15 minutes. May repeat juice/soda, gel, dextrose or glucagon once per episode. Notify provider if hypoglycemia does not resolve after two treatments. Providers should consider the following: administering longer-acting treatments for the duration of active insulin or hypoglycemia agent for persistent hypoglycemia and re-evaluating active insulin orders before administering the next dose. glucagon (Glucagen) (1 mg/mL) injection solution 1 mg(Linked Group 4) 1 mg, Intramuscular, EVERY 15 MIN PRN, Starting on Wed05/29/24 at 1514, Until Wed06/02/24 at 2044, Low blood sugar, For BG 50-70 mg/dL: Oral treatment preferred: If able to drink, give 120 mL juice or regular (not diet) soda OR if NPO, give 15 gram glucose 40% oral gel massaged into buccal mucosa OR if unconscious or uncooperative, give 25 gram (250 mL) dextrose 10% IV over 15 minutes per protocol OR, if no IV access, 1 mg glucagon IM. For BG less than 50 mg/dL: Oral treatment preferred: If able to drink, give 240 mL juice or regular (not diet) soda OR if NPO, give 30 gram glucose 40% oral gel massaged in buccal mucosa OR if unconscious or uncooperative, give 25 gram (250 mL) dextrose 10% IV over 15 minutes per protocol OR, if no IV access, 1 mg glucagon IM. Recheck BG in 15 minutes. May repeat juice/soda, gel, dextrose or glucagon once per episode. Notify provider if hypoglycemia does not resolve after two treatments. Providers should consider the following: administering longer-acting treatments for the duration of active insulin or hypoglycemia agent for persistent hypoglycemia and re-evaluating active insulin orders before administering the next dose. , Routine glucose (Glutose) 40% oral geL(Linked Group 4) 15-30 g of glucose, Buccal, EVERY 15 MIN PRN, Starting on Wed05/29/24 at 1514, Until Wed06/02/24 at 2045, Low blood sugar, For BG 50-70 mg/dL: Oral treatment preferred: If able to drink, give 120 mL juice or regular (not diet) soda OR if NPO, give 15 gram glucose 40% oral gel massaged into buccal mucosa OR if unconscious or uncooperative, give 25 gram (250 mL) dextrose 10% IV over 15 minutes per protocol OR, if no IV access, 1 mg glucagon IM. For BG less than 50 mg/dL: Oral treatment preferred: If able to drink, give 240 mL juice or regular (not diet) soda OR if NPO, give 30 gram glucose 40% oral gel massaged in buccal mucosa OR if unconscious or uncooperative, give 25 gram (250 mL) dextrose 10% IV over 15 minutes per protocol OR, if no IV access, 1 mg glucagon IM. Recheck BG in 15 minutes. May repeat juice/soda, gel, dextrose or glucagon once per episode. Notify provider if hypoglycemia does not resolve after two treatments. Providers should consider the following: administering longer-acting treatments for the duration of active insulin or hypoglycemia agent for persistent hypoglycemia and re-evaluating active insulin orders before administering the next dose. 1 tube of Glutose-15 contains 15 grams of glucose (net weight of tube = 37.5 grams.), Routine HYDROmorphone (Dilaudid) (0.5 mg/0.5 mL) injection syringe 0.2-0.4 mg 0.2-0.4 mg, Intravenous, EVERY 4 HOURS PRN, Starting on Wed05/28/24 at 1951, Until Wed06/02/24 at 2044, Pain, For pain not well controlled at least 30 min after administration of oral regimen. For pain 4-6 give 0.2mg dilaudid. If pain not releived within 30 minutes give additional 0.2mg dilaudid. For pain 7-10 give 0.4mg dilaudid., For pain 4-6 give 0.2mg dilaudid. If pain not releived within 30 minutes give additional 0.2mg dilaudid. For pain 7-10 give 0.4mg dilaudid., Routine 08 (Given - Provider: Venus Issa RN) insulin lispro (HumaLOG;Admelog) (100 unit/mL) subcutaneous injection vial 1-13 Units 1-13 Units, Subcutaneous, 3 TIMES DAILY PRN, Starting on Wed06/01/24 at 1123, Until Wed06/02/24 at 2044, with snacks, [employer] Give 1 unit for every 6 grams carbohydrate. Hold if not eating or if BG less than 70 mg/dL., Routine 1342 (Given - Provider: Anuj Liu, DAVID)1648 (Given - Provider: Anuj Liu, DAVID) lidocaine (Xylocaine) 1% (10 mg/mL) injection 3 mg 3 mg (0.3 mL), Subcutaneous, ONCE PRN, 1 dose, Starting on Wed05/28/24 at 1943, Until Wed06/02/24 at 2044, for discomfort with PIV insertion, Routine naloxone (Narcan) (0.4 mg/mL) injection 0.4 mg 0.4 mg, Intravenous, ONCE PRN, 1 dose, Starting on Wed05/30/24 at 1627, Until Wed06/02/24 at 2044, Opioid Reversal, Please provide if patient is in respiratory distress with low respiratory drive, somnolence and other signs and symptoms of opioid overdose, STAT oxyCODONE (Roxicodone) tablet 5-10 mg 5-10 mg, Oral, EVERY 4 HOURS PRN, Starting on 05/28/24 at 1951, Until Wed06/02/24 at 2044, Pain, for pain 4-6 give 5mg oxy, if not releived in 30 minutes give additional 5mg. For pain 7-10 give 10mg oxy., For pain 4-6 give 5mg oxy, if not releived in 30 minutes give additional 5mg. For pain 7-10 give 10mg oxy., Routine 0159 (Given - Provider: Maribel Lazo RN)0634 (Given - Provider: Maribel Lazo RN)1508 (Given - Provider: Anuj Liu, DAIVD)2034 (Given - Provider: Maribel Lazo RN) 0045 (Given - Provider: Maribel Lazo RN)0448 (Given - Provider: Maribel Lazo RN)1245 (Given - Provider: Anuj Liu RN)1640 (Given - Provider: Anuj Liu RN)2020 (Given - Provider: Lizett Simmons RN) 0232 (Given - Provider: Lizett Simmons RN)0840 (Given - Provider: Anuj Liu RN)1342 (Given - Provider: Anuj Liu RN) sodium chloride 0.9 % (flush) (BD PosiFlush Normal Saline 0.9) flush 5-20 mL 5-20 mL, Intravenous, EVERY 1 MIN PRN, Starting on Wed05/28/24 at 1943, Until Wed06/02/24 at 2044, flush, Flush pertains to all indwelling lines. Flush per protocol found in the job aid using the link provided on this medication record., Routine Linked Groups Order Group 1: POCT Fingerstick Glucose (CANCELED) Routine, 4 TIMES DAILY BEFORE MEALS & AT BEDTIME, First occurrence on Wed05/31/24 at 1100, Until Specified, Consider choosing FOUR TIMES A DAY BEFORE MEALS AND AT BEDTIME as frequency for: Patients who have a good hypoglycemia awareness: -Patients who are eating meals during the day and sleeping at night -Patients who are otherwise stable And insulin lispro (HumaLOG;Admelog) (100 unit/mL) subcutaneous injection vial 1-9 UnitsJump to med 1-9 Units, Subcutaneous, 4 TIMES DAILY BEFORE MEALS & NIGHTLY, First dose (after last modification) on Wed05/31/24 at 1130, Until Discontinued, CORRECTION BOLUS [1-9 Units] Moderate Sliding Scale (BG in mg/dL): Correction factor 20 (1 unit of insulin is expected to drop the glucose 20 mg/dL) BG 140 - 160 Give 1 unit BG 161 - 180 Give 2 units BG 181 - 200 Give 3 units BG 201 - 220 Give 4 units BG 221 - 240 Give 5 units BG 241 - 260 Give 6 units BG 261 - 280 Give 7 units BG 281 - 300 Give 8 units BG greater than 300, give 9 units and recheck BG in 2 hours after dose administered. For 2hr recheck dose: If recheck BG remains greater than 240, GIVE 3 units. If recheck BG is less than 240 after two hours, give no insulin and resume prior schedule. DO NOT hold if NPO, unless specifically directed to do so by written order. Per Blood Glucose Monitoring Policy, re-check a BG of > 240 mg/dL in 2 hours , Routine Group 2: nicotine (Nicoderm CQ) 14 mg/24 hr patch 14 mgJump to med 14 mg (1 patch), Transdermal, Administer over 24 Hours, DAILY, First dose on Wed05/28/24 at 2003, Until Discontinued, Apply new patch to clean, dry, hair-free skin on the upper body or upper outer arm; each patch should be applied to a different site., Routine And nicotine (Nicoderm CQ) 14 mg/24 hr patch Patch VerificationJump to med Transdermal, 2 TIMES DAILY, First dose on Wed05/29/24 at 0749, Until Discontinued, Verify nicotine 14 mg/24 hr patch. Group 3: heparin (porcine) 50 units/mL in dextrose 5% 500 mL infusion (CANCELED)Jump to med 0-5,000 Units/hr (0-100 mL/hr), Intravenous, CONTINUOUS, Starting on Wed05/28/24 at 1955, Until Wed06/02/24 at 0917, Begin infusion at 1,900 units per hr (18 units/kg/hr). Maximum initial infusion rate is 2,000 units/hr. Infusion doses are rounded to the nearest 50 units. Target Heparin UFH Level (anti-Xa activity) = 0.3 - 0.7 international unit/mL Start adjustment schedule 6 hours after starting infusion. If Heparin UFH Level is: - Less than 0.1 international unit/mL: Administer PRN bolus and increase rate by 400 units per hr (4 units/kg/hr) - 0.1 - 0.19 international unit/mL: Administer PRN bolus and increase rate by 200 units per hr (2 units/kg/hr) - 0.2 - 0.29 international unit/mL: NO BOLUS and increase rate by 200 units per hr (2 units/kg/hr) - 0.3 - 0.7 international unit/mL: No change - 0.71 - 0.79 international unit/mL: NO BOLUS and decrease rate by 100 units per hr (1 units/kg/hr) - 0.8 - 0.99 international unit/mL: NO BOLUS and decrease rate by 200 units per hr (2 units/kg/hr) - Greater than or equal to 1.00 international unit/mL: Hold infusion for 60 minutes then decrease rate by 300 units per hour (3 units/kg/hr) Obtain Heparin UFH Level 6 hours after initiating heparin. Then 6 hours after each dose adjustment. When 2 consecutive Heparin UFH Level within target range of 0.3 - 0.7 international unit/mL, change Heparin UFH Level to once every 24 hours with A.M. labs while on heparin. RN to order required Heparin UFH Level - Per Protocol , Routine And heparin (porcine) (1,000 units/mL) injection 0-8,000 Units (CANCELED) 0-8,000 Units, Intravenous, BOLUS PER HEPARIN PROTOCOL, Starting on Wed05/28/24 at 1953, Until Wed06/02/24 at 0917, Per Protocol, START ADJUSTMENT SCHEDULE 6 HOURS AFTER STARTING INFUSION Bolus doses are rounded to the nearest 100 units. If Heparin UFH Level is: - Less than 0.1 international unit/mL: Bolus 80 units/kg (Maximum of 8,000 units) = Bolus 8,000 units - 0.1 - 0.19 International unit/mL: Bolus 40 units/kg (Maximum of 4,000 units) = Bolus 4,000 units - Equal to or greater than 0.2 international unit/mL: No Bolus, Routine Group 4: glucose (Glutose) 40% oral geLJump to med 15-30 g of glucose, Buccal, EVERY 15 MIN PRN, Starting on Wed05/29/24 at 1514, Until Wed06/02/24 at 2044, Low blood sugar, For BG 50-70 mg/dL: Oral treatment preferred: If able to drink, give 120 mL juice or regular (not diet) soda OR if NPO, give 15 gram glucose 40% oral gel massaged into buccal mucosa OR if unconscious or uncooperative, give 25 gram (250 mL) dextrose 10% IV over 15 minutes per protocol OR, if no IV access, 1 mg glucagon IM. For BG less than 50 mg/dL: Oral treatment preferred: If able to drink, give 240 mL juice or regular (not diet) soda OR if NPO, give 30 gram glucose 40% oral gel massaged in buccal mucosa OR if unconscious or uncooperative, give 25 gram (250 mL) dextrose 10% IV over 15 minutes per protocol OR, if no IV access, 1 mg glucagon IM. Recheck BG in 15 minutes. May repeat juice/soda, gel, dextrose or glucagon once per episode. Notify provider if hypoglycemia does not resolve after two treatments. Providers should consider the following: administering longer-acting treatments for the duration of active insulin or hypoglycemia agent for persistent hypoglycemia and re-evaluating active insulin orders before administering the next dose. 1 tube of Glutose-15 contains 15 grams of glucose (net weight of tube = 37.5 grams.), Routine Or dextrose 10% infusionJump to med 250 mL, at 1,000 mL/hr, Intravenous, EVERY 15 MIN PRN, Starting on Wed05/29/24 at 1514, Until Wed06/02/24 at 2044, For BG 50-70 mg/dL: Oral treatment preferred: If able to drink, give 120 mL juice or regular (not diet) soda OR if NPO, give 15 gram glucose 40% oral gel massaged into buccal mucosa OR if unconscious or uncooperative, give 25 gram (250 mL) dextrose 10% IV over 15 minutes per protocol OR, if no IV access, 1 mg glucagon IM. For BG less than 50 mg/dL: Oral treatment preferred: If able to drink, give 240 mL juice or regular (not diet) soda OR if NPO, give 30 gram glucose 40% oral gel massaged in buccal mucosa OR if unconscious or uncooperative, give 25 gram (250 mL) dextrose 10% IV over 15 minutes per protocol OR, if no IV access, 1 mg glucagon IM. Recheck BG in 15 minutes. May repeat juice/soda, gel, dextrose or glucagon once per episode. Notify provider if hypoglycemia does not resolve after two treatments. Providers should consider the following: administering longer-acting treatments for the duration of active insulin or hypoglycemia agent for persistent hypoglycemia and re-evaluating active insulin orders before administering the next dose. Or glucagon (Glucagen) (1 mg/mL) injection solution 1 mgJump to med 1 mg, Intramuscular, EVERY 15 MIN PRN, Starting on 05/29/24 at 1514, Until Wed06/02/24 at 2045, Low blood sugar, For BG 50-70 mg/dL: Oral treatment preferred: If able to drink, give 120 mL juice or regular (not diet) soda OR if NPO, give 15 gram glucose 40% oral gel massaged into buccal mucosa OR if unconscious or uncooperative, give 25 gram (250 mL) dextrose 10% IV over 15 minutes per protocol OR, if no IV access, 1 mg glucagon IM. For BG less than 50 mg/dL: Oral treatment preferred: If able to drink, give 240 mL juice or regular (not diet) soda OR if NPO, give 30 gram glucose 40% oral gel massaged in buccal mucosa OR if unconscious or uncooperative, give 25 gram (250 mL) dextrose 10% IV over 15 minutes per protocol OR, if no IV access, 1 mg glucagon IM. Recheck BG in 15 minutes. May repeat juice/soda, gel, dextrose or glucagon once per episode. Notify provider if hypoglycemia does not resolve after two treatments. Providers should consider the following: administering longer-acting treatments for the duration of active insulin or hypoglycemia agent for persistent hypoglycemia and re-evaluating active insulin orders before administering the next dose. , Routine documented in this encounter Care Teams Open Winder Relationship Specialty Start Date End Date None None PCP - General 05/27/24 documented as of this encounter
--- OUTSIDE RECORDS SUMMARY | 2024-07-14 14:35 | XMS_ITS | Encounter Summary ---
Author Organization [facility] Address [facility] [place] [address] Care Team Providers Care Tiedown Operator Name Role Phone Patric Al MD Primary Care Provider [phone] Reason for Referral * (Routine) - Closed by system - Referral Specialty Diagnoses / Procedures Referred By Contac t Referred To Contact Cardiac Rehabilitation Diagnoses NSTEMI (non-ST elevated myocardial infarction) Sarthak Pollard MD [facility] [place] [address] Referral ID Status Reason Start Date Expiration Date Visits Requested Visits Authorized [id number] Closed by system - Referral Evaluate and Treat 3 02/18/2014 1 1 Encounter Details Date Type Department Care Team (Latest Contact Info) Description 08/20/2013 12:58 PM EDT - 08/22/2013 3:38 PM EDT Hospital Encounter [place] [address] Asad Biggs MD [facility] [place] [address] Sarthak Pollard MD [facility] [place] [address] Chest pain; Coronary artery disease; ACS (acute coronary syndrome); SOB (shortness of breath); NSTEMI (non-ST elevated myocardial infarction) Discharge Disposition: Home Social History Tobacco Use [...] Sign Reading Time Taken Comments Blood Pressure 157/74 08/22/2013 11:47 AM EDT Pulse 79 08/22/2013 11:47 AM EDT Temperature 36.9 ??C (98.4 ??F) 08/22/2013 1 1:47 AM EDT Respiratory Rate 17 08/22/2013 11:4 7 AM EDT Oxygen Saturation 97% 08/22/2013 11: 47 AM EDT Inhaled Oxygen Concentration - - Weight 130.5 kg (287 lb 11.2 oz) 2012 12:19 AM EDT Height 180.3 cm (5' 11) 08/20/2013 1:24 PM EDT Body Mass Index 40.13 08/20/2013 1:24 PM EDT documented in this encounter Discharge Instructions * Discharge Instructions* Amy Joshi PA - 08/22/2013 2:50 PM EDT Call your doctor if: Chest pain, dyspnea, pain or swelling in legs occurs. If you have non-emergent questions between now and the time of your follow up appointments: -During 8am-5pm Wednesday through Wednesday call [phone] to speak with a nurse in the cardiology clinic -All other times call [phone] and ask to speak to the log clerk telephonic case manager. Return to work/ usual actvities: 1 week, as tolerated. No squatting or lifting more than 10 pounds until then. Driving: No driving for 48 hours after catheterization. Follow up Appointments: PCP: PATRIC AL MD at [phone] to see you on WednesdayAugust 28 at 10:50 am. Wire Tinner, Dr. Oseguera, to see you on 09/20/14 at noon. Please call [phone] with questions. Diabetes medication instructions You should have an appointment with your local doctor (to establish care with a local PCP soon) otherwise please contact our Endocrine department for question or concern about your diabetes medication during the interim ( ) Instructions for diabetes pills to help lower blood sugar during daytime To take glimepiride 2 mg 1 tablet daily every morning and evening before meal to prevent a high BG after you eat. To hold it if your BG is lower than 80, or you have symptoms of a low BG, treat the low BG first, then eat your meal and take the glimepiride later after your BG is >80. To reduce the dose to half-dose (once a day instead of 2x/day) if your blood sugar is consistent low <80 and discuss this with your doctor. If you should forget to take glimiperide before breakfast, take the usual dose at any time later asit's a long-acting medication and can be taken once daily Also, take Metformin 500 mg 1x/day to help lower insulin resistance and help enhance insulin and glimiperide action. It may help lower you weight and appetite while using insulin and glimiperide. If you have any stomach upset (nausea, cramps or diarrhea), you can decrease the dosage to 500 mg twice a day (am & pm). Then to cont. this low dose until you get better and you can increase the dose back to 1,000 mg 2x/day later. Talk to your doctor as well. Some people feel less nauseated if they take metformin after meals instead of before meal but most people tolerate the medication without problem. To hold both DM medications if you are not eating for any procedure or testing. Treatment of Low Blood Sugar (Hypoglycemia) If your BG is lower than 80, you are likely to feel shaky, sweaty and lightheaded. This is a signalthat your body needs more sugar. Quickly eat or drink a small serving of something sweet, such as: 4 ounces fruit juice or regular (not diet) soda 6 SpanDeXavers small box of raisins 4 glucose tablets (~15 gm of glucose) NB: If your BG is very low <50, you can double the amount above or take 30 gm of glucose gel/tablets. Sit and rest and you should feel better within a few minutes. Once you are feeling better, try to determine why your BG was so low. Common causes of hypoglycemia include skipping a meal, lots of exercise, too much insulin or any combination of these things. Understanding the cause my help you to avoid another low BG in the future. Call your doctor for blood sugars less than 70 or greater than 250 to have your insulin doses adjusted. * Attachments The following attachments cannot be sent through Care Everywhere. * CHEST PAIN (ANGINA): AFTER YOUR VISIT (CHILEAN) * CORONARY ARTERY DISEASE: AFTER YOUR VISIT (CHILEAN) * DIABETES DIET GUIDELINES: AFTER YOUR VISIT (CHILEAN) * HEART ATTACK: AFTER YOUR VISIT (CHILEAN) * HEMOGLOBIN A1C: ABOUT THIS TEST (CHILEAN) * HOME BLOOD GLUCOSE TEST: ABOUT THIS TEST (CHILEAN) * CARDIAC CATHETERIZATION: AFTER YOUR VISIT (CHILEAN) documented in this encounter Medications at Time of Discharge Medication Sig Dispensed Refills Start Date End Date aspirin 81 mg EC tablet Take 1 tablet by mouth daily. 30 tablet 11 08/22/2013 nitroGLYcerin (NITROSTAT) 0.[address] 1 tablet under the tongue daily as needed for Chest pain. 25 tablet 1 08/22/2013 Blood Sugar Diagnostic (FREESTYLE LITE STRIPS) test stripIndications:pre diabetes s/p CABG by Other route 2 times daily. 1 box = 100 test strips Indications: prediabetes s/p CABG 100 each 1 01/08/2012 Lancets (FREESTYLE LANCETS) MiscIndications:pred iabetes now s/p CABG by Other route 2 [...] tablet Take 225 mg by mouth daily. clopidogrel (PLAVIX) 75 mg tablet Take 1 tablet by mouth daily. 30 tablet 11 08/22/2013 05/28/2024 glimepiride (AMARYL) 2 mg tablet Take 1 tablet by mouth daily. 60 tablet 11 08/22/2013 05/29/2024 insulin glargine (LANTUS) pen injection Inject 10 Units subcutaneously nightly. 3 mL 11 08/22/2013 06/02/2024 metFORMIN (GLUCOPHAGE) 500 mg tablet Take 1 tablet by mouth daily. 30 tablet 11 08/22/2013 06/02/2024 pantoprazole (PROTONIX) 40 mg tablet Take 1 tablet by mouth daily. 30 tablet 11 08/22/2013 08/25/2013 metoprolol tartrate (LOPRESSOR) 50 mg tablet Take 50 mg by mouth 2 times daily. 05/29/2024 senna-docusate (PERICOLACE) 8.6-50 mg per tablet Take 2 tablets by mouth daily as needed for Constipation. 01/08/2012 05/28/2024 simvastatin (ZOCOR) 20 mg tablet Take 20 mg by mouth nightly. 08/25/2013 documented as of this encounter Progress Notes * Sangita Espinoza RN - 08/22/2013 3:39 PM EDT Discharge summary, instructions, and medications reviewed with patient. Pt verbalized excellent understanding. Pt successfully administered insulin via pen. Pt discharged to home via personal car with friend. * Akanksha Angel RN - 08/22/2013 1:58 PM EDT Diabetes Clinical Nurse Specialist Mr. Dixon is a 38 yo man with a new Dx type 2 diabetes. When he was hospitalized here in December, he was found to have pre-diabetes and was advised to treat this with diet, exercise, metformin and monitoring. States that he did not follow this advice. At this time, he denies Sx hyperglycemia. HbA1c is 10.0% (average glucose = 240). Explained that unfortunately (from the perspective of internal motivation) hyperglycemia typically has no Sx, so it'simportant that he treat his diabetes aggressively and f/u closely with his PCP. Encouraged healthy diet, regular exercise, medication as ordered, monitoring and learning all he can about caring for his own diabetes. Nutrition education consult pending. He was seen by Cardiac Rehab. Glucose meter provided, along with a copy of the Diabetes Toolkit. Reviewed the potential long-term complications ofdiabetes and explained that the risk is reduced with near-normal glycemic control. * Alexandru Casas MSW - 08/22/2013 1:49 PM EDT Patient is a 38 y/o man from [place], [place]. He is disabled and on Social Security Disability andhas Medicare. Patient thought he had [place] Medicaid and states he recently reapplied. However as of today his [place] Medicaid is not active. Patient states that he [facility] soon as he returns home. Will authorize a 1 week supply of all of patient's discharge medication through [facility] to give patient time to resolve his Medicaid eligibility. * Calista Jaimes RN - 08/22/2013 12:28 PM EDT Office of Care Management (OCM) / Clinical Liquor Tester (CRC)/ Initial Assessment Discussed patient with Provider Team and in multidisciplinary discharge-planning rounds. Reviewed record and interviewed patient. Introduced/reviewed CRC role and services accepted. REASON for HOSPITALIZATION: NSTEMI (non-ST elevated myocardial infarction) S/p PCI PMH Please see MD H+P for detailed history. PMH includes HTN, Hyperlipedemia, depression, narcolepsy PREVIOUS FUNCTIONAL STATUS: Pt states that he has been on disability SSD for 3 yrs due to his Narcolepsy. Independent in his ADL's. He states he is still able to drive with medication. 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 CURRENT FUNCTIONAL STATUS: same SOCIAL / FAMILY SUPPORTS: . Lives with 2 roommates. He states that his 6 yo son, Horacio lives primarily with him. Has another son Sacha who is 20 yo. Brother Star and Mother Cony are helpful. States he has friends who are helpful to him. ADVANCE DIRECTIVES: None on file HEALTH /PRESCRIPTION COVERAGE: Medicare. Pt states he has [place] Medicaid. Not listed in pt's insuranceprofile. Pt states he has Medicare D for prescriptions. Uses [facility] CURRENT HOME/COMMUNITY SERVICES/EQUIPMENT: None COMMODITY BROKER REFERRAL: Notified Alexandru SALCEDO regarding pt's [place] Medicaid. Pt's [place] Medicaid is not active per Alexandru SALCEDO. PRIMARY CARE PHYSICIAN: PATRIC AL MD ALEJANDR[phone] [facility] [id number] POTENTIAL DISCHARGE NEEDS: None identified at this time. PATIENT/FAMILY EDUCATION NEEDS: Pt is new diabetic and will need education on his home regime before discharge. Endocrine consulting. ANTICIPATED BARRIERS TO DISCHARGE: none TRANSPORTATION @ D/C: Friend Hermila to supply transportation home PLAN: CRC will continue to monitor progress, follow for continuity of care and assist with discharge planning while hospitalized. Awaiting Endocrine consult. Calista Jaimes FELLING BUCKING SUPERVISOR CRC/Jaye Dennison MSN BSN RN CRC Office of Care Managment Pager [phone] . * Padma Marquez I, RD - 08/22/2013 11:42 AM EDT Nutrition Services Education Note Diet Rx: [facility]/Low Fat Patient Active Problem List Diagnosis Code ??? HTN (hypertension) 401.9 ??? Hyperlipidemia 272.4 ??? Depression 311 ??? Narcolepsy 347.00 ??? 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 (SVG to PDA closed 08/2013) 414.00 ??? NSTEMI (non-ST elevated myocardial infarction) 410.70 Patient seen for nutrition education for: Carbohydrate Counting Estimated Energy Needs: 1,800-2,000 kclas (14-16 kcals/kg ABW); 50-60% of energy from carbohydrate = 250-270 grams CHO/day Diet recall: B: Bowl of sugar cereal with 2% or whole milk Snack: Large coffee with cream and sugar and sometimes a muffin L: Morillo's: 2 Duble Cheeseburgers OR a Quarter Pounder with cheese and Large Chocolate Shake (1,100-1,500 calories) sometimes apple pie - additional 250 calories D: sometimes will skip dinner - half the week will cook for son, steak or chicken, potato and vegetables. Drinks milk with dinner S: Ice cream - big bowl Nutrition Diagnosis: 1) Excessive Fat Intake r/t lack of value for behavior change and nutrition related knowledge deficit AEB cholesterol >200, Triglycerides >150 and frequent large portions of high-fat foods per diet recall. 2) Obesity - Grade II r/t excessive energy intake AEB 39.3 BMI, diet recall, increased waist circumference , and previous disinterest in applying nutrition- re;ated recommendations. 3) Excessive Carbohydrate Intake r/t limited compliance with previous recommendations from physician and nutrition-related knowledge deficit concerning appropriate amount of carbohydrates AEB HgA1c 10.0 and fasting glucose 170. Interview: This is my own fault. Two yeas ago when I had heart surgery they told me I was pre-diabetic and I never did anything about it. Pt verbalizing knowing he needs to change everything. Reviewed Carbohydrate Counting Basics with a meal pattern and encouraged small changes to be successfuland building on those. Written information provided: 1) My Food Plan 75/75/90 carbohydrates for B/L/D and 15-20 grams each for 2 snack/day. 2) Healthy Food Choices - reinforcing building healthy habits 3) Choose Your Foods Plan Your Meals -for food groups and serving sizes to help plan carbohydrate consumption balanced within each meal and through out the day. Pt was given my contact information if questions arise. Pt stated good understanding. Thank you. * Taylor Hamlin RN - 08/22/2013 10:37 AM EDT Cardiac Rehabilitation Inpatient Evaluation Primary Cardiac Diagnosis: NSTEMI s/p PCI Cardiac Risk Factors: Smoking: yes Overweight: yes Hyperlipidemia: yes Sedentary: yes HTN: yes Family history: unsure DM: yes Stress: yes Patient Education: Reviewed cardiac cath findings, implications of coronary artery disease, managing angina and risk factor modification. Reviewed managing angina /use of sl nitroglycerin. Heart healthy diet guidelines briefly reviewed. Lipids values and treatment goals reviewed. Smoking cessation discussed Weight loss options discussed Phase II Referral: [facility] Activity Summary: By discharge, patient will be able to perform self care, walk 5-7 minutes and go up and down stairs without signs or symptoms of ischemia. Date /Initials Baseline Response Symptoms/Comments 08/22/13/RB Activity HR 92 108 Pt tolerated activity well. Denied any s/s 5 min walk BP 126/80 142/88 of angina stairs O2 Sat RA 92 RA 98 ECG NSR NSR * Lizett Allen MD - 08/22/2013 9:44 AM EDT 38 male with premature coronary disease and newly diagnosed type 2 diabetic (A1C 10%). Home regimen: None Inpatient regimen: Lantus 10 units bedtime Sliding scale correction insulin 20 units (past 24 hrs) Recent Labs Basename 08/22/13 0747 08/21/13 2243 08/21/13 2028 08/21/13 1625 08/21/13 1137 08/21/13 0833 08/21/13 0159 08/20/13 2354 08/20/13 2026 08/20/13 1703 08/20/13 1323 POCGLU 199 193 259* 138 200* 202* 262* 290* 200* 230* 243* Recommendations - Lantus 10 units at bedtime [...] up with PCP or Dr Bird in [place] I reviewed the patient with and agree with the recommendations and plans * Sarthak Pollard MD - 08/22/2013 7:18 AM EDT Inpatient Cardiology Progress Note Patient Name: Lux Dixon 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 NSTEMI (non-ST elevated myocardial infarction) , NSTEMI, LHC ??? 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 (SVG to PDA closed 08/2013) Priority: High NSTEMI 12-29-2011 Cath - LAD, PDA and Distal Circ Disease CABG 01-04-2012 (MARTINEZ-LAD, SVG-PDA) ??? HTN (hypertension) ??? Hyperlipidemia Resolved Hospital Problems Diagnosis Date Resolved No resolved problems to display. Interval History: Pt is feeling well and walking around in the hallway with Cardiac rehabilitation. He is being seen by the Endocrine team. Review of Systems: Review of Systems General: Denies fever, chills, Cardiovascular: Denies CP, palpitations, LE edema, Respiratory: Denies SOB, PND/ orthopnea, except with is admitting episode of CP GI: Denies abdominal pain, bowel changes now/ melena Neuro: Denies new weakness or numbness Skin: L palm hand dry skin with cracking Telemetry: HR 65-95s, sinus rhythm, 1 short run of PVC in bigeminy Meds: Scheduled Meds: ??? [COMPLETED] potassium chloride 40 mEq Oral Once ??? sodium chloride 0.9 % 5 mL Intravenous Q12H ??? aspirin 81 mg Oral Daily ??? clopidogrel 75 mg Oral Daily ??? pantoprazole 40 mg Oral Daily ??? insulin glargine 10 Units Subcutaneous Nightly ??? [DISCONTINUED] diaZEPam 5 mg Oral Once ??? [DISCONTINUED] methylphenidate 20 mg Oral TID AC ??? [DISCONTINUED] famotidine 20 mg Oral BID ??? metoprolol tartrate 50 mg Oral BID ??? sertraline 50 mg Oral Daily ??? simvastatin 20 mg Oral QPM ??? sodium chloride 0.9 % 5 mL Intravenous Q12H ? ? insulin aspart 2-8 Units Subcutaneous 4 Times Daily AC & HS ??? venlafaxine 225 mg Oral Daily with breakfast ??? [DISCONTINUED] aspirin 81 mg Oral Daily ??? [DISCONTINUED] sodium chloride 0.9 % 5 mL Intravenous Q12H ??? [DISCONTINUED] famotidine 20 mg Oral BID ??? [DISCONTINUED] dextroamphetamine-amphetamine 20 mg Oral Daily ??? [DISCONTINUED] sodium chloride 0.9 % 5 mL Intravenous Q12H Continuous Infusions: ??? [] sodium chloride 0.9% 100 mL/hr (08/21/13 1500) ??? [DISCONTINUED] sodium chloride 0.9% Stopped (08/21/13 1506) ??? [DISCONTINUED] sodium chloride 0.9% ??? [DISCONTINUED] bivalirudin Stopped (08/21/13 1427) ??? [DISCONTINUED] nitroGLYcerin Stopped (08/21/13 1319) ??? [DISCONTINUED] heparin Stopped (08/21/13 1230) ??? [DISCONTINUED] sodium chloride 0.9% Stopped (08/20/13 2155) Physical Exam: Vital Signs: Last value Range last 24 hrs Temperature Temp: 36.9 ??C (98.4 ??F) Temp: [36.7 ??C (98.1 ??F)-37.1 ??C (98.8 ??F)] Heart Rate Heart Rate: 79 Heart Rate: [73-93] Blood Pressure BP: 157/74 mmHg BP: (115-157)/(68-102) Respiratory Rate Resp: 17 Resp: [9-24] SpO2 SpO2: 97 % SpO2: [96 %-99 %] Physical Exam General: NAD, AAOx3, appropriate, obese HEENT: NC/AT, anicteric sclerae, Neck: no JVD or bruits Lungs: clear without W/R/R CV: RRR, S1, S2, no M/R/G heard Abd: Nl BS, soft, NT, ND, obese Ext: no C/C/Edema Vascular: 2+ radial, femoral, and intact distal pulses b/l No femoral bruits, R gayle test abnormal Right groin site is clean, dry, and intact Lab Comments: Recent Labs Basename 08/22/1340208/21/13 03508/20/13 1345 WBC 10.0 12.9* 12.2* HGB 12.7* 13.0* 14.7 HCT 37.7* 37.9* 42.3 PLATELET 201 198 247 Recent Labs Basename 08/21/13352 INR 1.0 Recent Labs Basename 08/22/1340208/21/13 0353 08/20/13 1345 NA 137 135 138 K 3.7 3.5 4.1 CL 102 101 102 CO2 25 22 22 BUN 6* 15 15 CREATININE 0.62* 0.67* 0.68* Recent Labs Basename 08/22/1340208/21/1335208/20/13 1345 CALCIUM 8.8 8.7 9.3 MAGNESIUM -- -- 0.74 PHOS -- -- -- Recent Labs Basename 08/22/13 0403 08/21/13 1836 08/21/13 0353 CK 455* 594* 777* TROPONINT 0.95* 0.93* 1.06* Lipid Panel Lab Results Component Value Date CHLPL 218* 08/21/2013 HDL 24* 08/21/2013 CHOLHDL 9.1 08/21/2013 TRIG 733* 08/21/2013 LDLDIRECT 107* 08/21/2013 Pertinent Radiographic/Diagnostic Results: ECHO: 1. Left ventricular chamber size, wall thickness, global and segmental systolic function are within normal limits. Ejection fraction is estimated to be 65%. Doppler assessment is consistent with elevated left sided filling pressure. 2. The right ventricle is not well visualized. The right ventricle is mildly dilated. Right ventricular global systolic function is probably normal. The estimated pulmonary artery systolic pressure is 28 mmHg. 3. The right atrium is mildly dilated. The left atrium is normal in size. 4. There is no hemodynamically significant valve disease. I have independently visualized the following studies: ECG: SR/ 68, isolated Q in III Assessment: Lux Dixon Jr. is a 38 y.o. male with CAD/ 2v CABG and recurrent angina, +NSTEMI pending [facility]. Stable. Plan: 1. CAD/ CABGx2, stable Telemetry monitoring S/p PCI of LCX Needs risk factors addressed Has not been on cardiac diet Will benefit from cardiac rehab Home today 2. DM2, uncontrolled, off treatment for about a year Previously on metformin and stopped as RX was not refilled, seems poor understanding of disease, Reinforced compliance and role of diet and education re disease Endo team to assist 3. HTN, uncontrolled BP is 157/74 Continue to follow 4. Hyperlipidemia, uncontrolled Increase statin as possible, watch for interactions with simvastatin 5. Obese, needs wt loss and diet education 6. Smoker, committed to quitting Will consider patch, already on Effexor for history of depression follow 7. FULL CODE Patient discussed with Dr. Pollard. JUSTIN OROSCO Pager [phone] 08/22/2013 Cardiology Attending Note: I interviewed and examined the patient with the inpatient team and agree with the principal findings. I participated in the formulation of the assessment and plan and answered all the patient's questions. He is feeling well. He is having no angina despite the fact that his RCA territory has not been revascularized. He's had no shortness of breath. He has been seen by endocrinology and is comfortable with self administration of insulins as well as oral agents. He lives in the [facility]. We will set him up to see Dr. Reji Lucia or one of his colleagues. Time spent at bedside and coordinating care: 35 mins. Sarthak Pollard MD, MS Staff Wire Tinner Pager [phone] * Latonya Sanders - 08/21/2013 10:28 PM EDT Post-cardiac catheterization access site evaluation note. Mr. Dixon is s/p cardiac catheterization earlier today. The patient was seen and examined. The patient has no complains, denies groin or back pain. He appears in no distress. Right groin catheterization access site is withough appreciable edema, ecchymosis, pulsatile mass or bruit. Femoral and pedal pulses are palpable. Latonya Sanders MD # [id number] * Sarthak Pollard MD - 08/21/2013 8:36 AM EDT Inpatient Cardiology Progress Note Patient Name: Lux Dixon Jr. 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 Coronary artery disease Priority: High NSTEMI 2-21-2012 Cath - LAD, PDA and Distal Circ Disease CABG 01-04-2012 (MARTINEZ-LAD, SVG-PDA) ??? TR (tricuspid regurgitation), mild Mild [place] ??? CAD (coronary artery disease) 2009 , 2 v CABG (MARTINEZ-LAD, SVG-PDA) ??? ACS (acute coronary syndrome) , NSTEMI, LHC ??? HTN (hypertension) ??? Hyperlipidemia Resolved Hospital Problems Diagnosis Date Resolved No resolved problems to display. Interval History: Pt on IV NTG though the night without recurrent CP No further diarrhea, no BM for 3 days per RN. No melena or bleeding issues. Review of Systems: Review of Systems General: Denies fever, chills, Cardiovascular: Denies CP, palpitations, LE edema, Respiratory: Denies SOB, PND/ orthopnea, except with is admitting episode of CP GI: Denies abdominal pain, bowel changes now/ melena Neuro: Denies new weakness or numbness Skin: L palm hand dry skin with cracking Telemetry: HR 60-70s, sinus rhythm, 1 short run of PVC in bigeminy Meds: Scheduled Meds: ??? sodium chloride 0.9 % 5 mL Intravenous Q12H ??? aspirin 81 mg Oral Daily ??? metoprolol tartrate 50 mg Oral BID ??? sertraline 50 mg Oral Daily ??? simvastatin 20 mg Oral QPM ??? sodium chloride 0.9 % 5 mL Intravenous Q12H ??? sodium chloride 0.9 % 5 mL Intravenous Q12H ??? famotidine 20 mg Oral BID ? ? insulin aspart 2-8 Units Subcutaneous 4 Times Daily AC & HS ??? dextroamphetamine-amphetamine 20 mg Oral Daily ??? venlafaxine 225 mg Oral Daily with breakfast ??? sodium chloride 0.9 % 5 mL Intravenous Q12H ??? [COMPLETED] insulin aspart 4 Units Subcutaneous Once ??? [DISCONTINUED] dextroamphetamine-amphetamine 20 mg Oral Daily ??? [DISCONTINUED] omeprazole 40 mg Oral Daily ??? [DISCONTINUED] venlafaxine 225 mg Oral Daily ??? [DISCONTINUED] esomeprazole 40 mg Oral Daily Continuous Infusions: ??? sodium chloride 0.9% 200 mL/hr (08/21/13 0906) ??? nitroGLYcerin 50 mcg/min (08/21/13215) ??? heparin 2,150 Units/hr (08/21/13 6542) ??? sodium chloride 0.9% Stopped (08/20/13 9854) Physical Exam: Vital Signs: Last value Range last 24 hrs Temperature Temp: 36.6 ??C (97.9 ??F) Temp: [36.3 ??C (97.3 ??F)-36.6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 meal and take the glimepiride later after your BG is >80. 2. To reduce the dose to half-dose (once a day instead of 2x/day) if your blood sugar is consistentlow <80 and discuss this with your doctor. 3. If you should forget to take glimiperide before breakfast, take the usual dose at any time lateras it's a long-acting medication and can be taken once daily Also, take Metformin 500 mg 1x/day to help lower insulin resistance and help enhance insulin and glimiperide action. It may help lower you weight and appetite while using insulin and glimiperide. If you have any stomach upset (nausea, cramps or diarrhea), you can decrease the dosage to 500 mg twice a day (am & pm). Then to cont. this low dose until you get better and you can increase the dose back to 1,000 mg 2x/day later. Talk to your doctor as well. Some people feel less nauseated if they take metformin after meals instead of before meal but most people tolerate the medication without problem. To hold both DM medications if you are not eating for any procedure or testing. Treatment of Low Blood Sugar (Hypoglycemia) If your BG is lower than 80, you are likely to feel shaky, sweaty and lightheaded. This is a signalthat your body needs more sugar. Quickly eat or drink a small serving of something sweet, such as: 4 ounces fruit juice or regular (not diet) soda 6 lifesVarcity Sportss small box of raisins 4 glucose tablets (~15 gm of glucose) NB: If your BG is very low <50, you can double the amount above or take 30 gm of glucose gel/tablets. Sit and rest and you should feel better within a few minutes. Once you are feeling better, try to determine why your BG was so low. Common causes of hypoglycemia include skipping a meal, lots of exercise, too much insulin or any combination of these things. Understanding the cause my help you to avoid another low BG in the future. Call your doctor for blood sugars less than 70 or greater than 250 to have your insulin doses adjusted. Future Appointments and Orders Future Orders Please Complete By Expires Referral to Cardiac Rehab [[id number] Custom] Process Instructions: If no progress note charted, please enter Clinical details in comments. Scheduling Instructions: Comments: Pt will participate in cardiac rehab @ [facility] Questions: Responses: Reason for referral NSTEMI Provider Contact Information: JALEN Billingsley NP Dr Bruce Andrus [phone] Discharge References/Attachments: Discharge References/Attachments CHEST PAIN (ANGINA): AFTER YOUR VISIT (CHILEAN) CORONARY ARTERY DISEASE: AFTER YOUR VISIT (CHILEAN) DIABETES DIET GUIDELINES: AFTER YOUR VISIT (CHILEAN) HEART ATTACK: AFTER YOUR VISIT (CHILEAN) HEMOGLOBIN A1C: ABOUT THIS TEST (CHILEAN) HOME BLOOD GLUCOSE TEST: ABOUT THIS TEST (CHILEAN) Signed: JUSTIN OROSCO Pager [phone] DATE: 08/22/2013 * Miscellaneous - Provider, Scanning - 08/20/2013 2:59 PM EDT * Miscellaneous - Provider, Scanning - 08/20/2013 2:58 PM EDT documented in this encounter Plan of Treatment Scheduled Orders Name Type Priority Associated Diagnoses Orde r Schedule EKG 12 Lead ECG STAT Chest pain One Time for 1 Occurrences starting 08/20/2013 until 08/20/2013 Scheduled Referrals Name Type Priority Associated Diagnoses Orde r Schedule Referral to Cardiac Rehab Outpatient Referral Routine NSTEMI (non-ST elevated myocardial infarction) Ordered: 08/22/2013 documented as of this encounter Procedures Procedure Name Priority Date/Time Associated Diagnosis Comments MANAGER SCIENCE SCAN 08/24/2013 11:52 AM EDT POCT GLUCOSE Routine 08/22/2013 11:52 AM EDT POCT GLUCOSE Routine 08/22/2013 7:47 AM EDT EKG 12-LEAD Routine 08/22/2013 7:45 AM EDT Chest pain BMP W/FASTING GLUCOSE Routine 08/22/2013 4:03 AM EDT DIFFERENTIAL, AUTOMATED Routine 08/22/20 4:03 AM EDT CARDIAC ENZYMES ([facility]) Routine 08/22/2013 4:03 AM EDT CBC (WITH DIFF) Routine 08/22/2013 4:03 AM EDT POCT GLUCOSE Routine 08/21/2013 10:43 PM EDT POCT GLUCOSE Routine 08/21/2013 8:28 PM EDT CARDIAC ENZYMES ([facility]) STAT 08/21/2013 6:36 PM EDT POCT GLUCOSE Routine 08/21/2013 4:25 PM EDT EKG 12-LEAD Routine 08/21/2013 2:53 PM EDT Chest pain CARDIAC CATHETERIZATION Routine 08/21/20 2:38 PM EDT POCT GLUCOSE Routine 08/21/2013 11:37 AM EDT APTT STAT 08/21/2013 11:09 AM EDT ECHOCARDIOGRAM TRANSTHORACIC Routine 08/21/2013 9:16 AM EDT Chest pain POCT GLUCOSE Routine 08/21/2013 8:33 AM EDT BMP W/FASTING GLUCOSE Routine 08/21/2013 3:53 AM EDT DIFFERENTIAL, AUTOMATED Routine 08/21/20 3:53 AM EDT CARDIAC ENZYMES ([facility]) Routine 08/21/2013 3:53 AM EDT APTT Routine 08/21/2013 3:53 AM EDT PROTHROMBIN TIME Routine 08/21/2013 3:53 AM EDT CBC (WITH DIFF) Routine 08/21/2013 3:53 AM EDT TRIGLYCERIDE Routine 08/21/2013 3:53 AM EDT LDL CHOLESTEROL, DIRECT Routine 08/21/20 3:53 AM EDT HDL/CHOL PROFILE Routine 08/21/2013 3:53 AM EDT HEMOGLOBIN A1C Routine 08/21/2013 3:53 AM EDT EKG 12-LEAD STAT 08/21/2013 2:54 AM EDT Chest pain POCT GLUCOSE Routine 08/21/2013 1:59 AM EDT POCT GLUCOSE Routine 08/20/2013 11:54 PM EDT APTT STAT 08/20/2013 11:51 PM EDT CARDIAC ENZYMES ([facility]) STAT 08/20/2013 9:40 PM EDT XR CHEST PA AND LATERAL Routine 08/20/20 9:18 PM EDT POCT GLUCOSE Routine 08/20/2013 8:26 PM EDT POCT GLUCOSE Routine 08/20/2013 5:03 PM EDT EKG 12-LEAD STAT 08/20/2013 3:19 PM EDT Chest pain DIFFERENTIAL, AUTOMATED Routine 08/20/20 1:45 PM EDT D-DIMER, QUANTITATIVE Routine 08/20/2013 1:45 PM EDT BLUE TUBE HOLD Routine 08/20/2013 1:45 PM EDT GREEN TUBE HOLD Routine 08/20/2013 1:45 PM EDT LAVENDER TUBE HOLD Routine 08/20/2013 1: 45 PM EDT CARDIAC ENZYMES ([facility]) Routine 08/20/2013 1:45 PM EDT APTT Routine 08/20/2013 1:45 PM EDT PROTHROMBIN TIME Routine 08/20/2013 1:45 PM EDT CBC (WITH DIFF) Routine 08/20/2013 1:45 PM EDT MAGNESIUM Routine 08/20/2013 1:45 PM EDT BASIC METABOLIC PANEL Routine 08/20/2013 1:45 PM EDT POCT GLUCOSE Routine 08/20/2013 1:23 PM EDT documented in this encounter Results * SCAN DOC: MANAGER SCIENCE (08/24/2013 11:52 AM EDT) Anatomical Region Laterality Modality Other Narrative 08/24/2013 12:55 PM EDT Procedure Note Provider, Scanning - 08/24/2013 11:52 AM EDT Scanning Provider MEDIA MGR SCAN EXT O RDR/RSLT * (ABNORMAL) POCT Glucose (08/22/2013 11:52 AM EDT) Glucose, POC 225(H) 60 - 199 mg/dL [facility] Comment: Supplemental ranges: <110 mg/dL before meals <200 mg/dL all other times of the day Blood specimen (specimen) 08/22/2013 11:52 AM EDT 08/22/2013 11:52 AM EDT Asad Biggs MD POINT OF CARE TEST O GILDA Performing Organization Address [facility] de Phone Number [facility] * POCT Glucose (08/22/2013 7:47 AM EDT) Glucose, POC 199 60 - 199 mg/dL [facility] Comment: Supplemental ranges: <110 mg/dL before meals <200 mg/dL all other times of the day Blood specimen (specimen) 08/22/2013 7:47 AM EDT 08/22/2013 7:47 AM EDT Asad Biggs MD POINT OF CARE TEST O GILDA Performing Organization Address [facility] de Phone Number [facility] * EKG 12 Lead (08/22/2013 7:45 AM EDT) Ventricular rate 79 BPM MUSE SYSTEM Atrial Rate 79 BPM MUSE SYSTEM P-R Interval 182 ms MUSE SYSTEM QRS Duration 108 ms MUSE SYSTEM Q-T Interval 406 ms MUSE SYSTEM QTC Calculated (Bezet) 465 ms MUSE SYSTEM Calculated P Anderson 57 degrees MUSE SYSTEM Calculated R Anderson 23 degrees MUSE SYSTEM Calculated T Anderson 2 degrees MUSE SYSTEM INTERPRETATION Normal sinus rhythm Cannot rule out Inferior infarct , age undetermined When compared with ECG of 21-AUG-2013 14:53, Borderline criteria for Inferior infarct are now present Confirmed by Pablito Torres MD ([id number]) on 08/23/2013 10:09:45 AM MUSE SYSTEM 08/22/2013 7:45 AM EDT 08/23/2013 10:09 AM EDT Tim Uribe MD ECG ORDERABLES MUSE SYSTEM * (ABNORMAL) Differential, Automated (08/22/2013 4:03 AM EDT) Neutrophil % 67.6 34.0 - 71.0 % CERNER MILLENNIUM Neutrophil Absolute 6.79(H) 1.50 - 6.30 x10(3)/mc L CERNER MILLENNIUM Lymph % 20.4 19.0 - 53.0 % CERNER MILLENNIUM Lymphocytes Abs 2.0 1.0 - 3.6 x10(3)/mc L CERNER MILLENNIUM Monocyte % 9.8 4.0 - 13.0 % CERNER MILLENNIUM Monocyte Abs 1.0 0.2 - 1.0 x10(3)/mc L CERNER MILLENNIUM Eos % 1.2 0.0 - 7.0 % CERNER MILLENNIUM Eosinophils Abs 0.1 0.0 - 0.5 x10(3)/mc L CERNER MILLENNIUM Basophil % 0.4 0.0 - 2.0 % CERNER MILLENNIUM Baso Absolute 0.0 0.0 - 0.2 x10(3)/mc L CERNER MILLENNIUM Immature Gran % 0.60 0.00 - 0.66 % CERNER MILLENNIUM Comment: Immature granulocytes(IG's)percentage and absolute count will include metamyelocytes, myelocytes, and promyelocytes. Blood smears from CBCs yielding IG's will be scanned manually for concordance. If this scan disagrees with the automated IG or if promyelocytes are noted, a manual differential will be performed. Immature Gran Absolute 0.06(H) 0.00 - 0.05 x10(3)/mc L CERNER MILLENNIUM Blood specimen (specimen) 08/22/2013 4:03 AM EDT 08/22/2013 4:42 AM EDT Tim Uribe MD HEMATOLOGY ORDERAB LES ARIAN CAENNIUM * (ABNORMAL) BMP w/fasting Glucose (08/22/2013 4:03 AM EDT) Glucose Fasting 170(H) 65 - 99 mg/dL CERN[facility] MILLENNIUM Comment: ?Fasting* Glucose Interpretive Criteria Normal ?65-99 mg/dL Impaired Fasting glucose ?100-125 mg/dL Consistent with Diabetes Mellitus ? >or= 126 mg/dL *Fasting is defined as no caloric intake for at least 8 hours In the absence of unequivocal hyperglycemia a plasma glucose value of >or= 126 mg/dL should be repeated on a subsequent day. Diagnosis and Classification of Diabetes Mellitus, Position Statement from the [place] [employer] Association. ??Diabetes Care, Volume 33, Supplement 1, Nov 2009 Blood Urea Nitrogen 6(L) 10 - 20 mg/dL [facility] MILLENNIUM Creatinine 0.62(L) 0.80 - 1.50 mg/dL CERNER MILLENNIUM Comment: Please note that the pediatric reference intervals supplied above were not validated at [facility]. Results from pediatric patients should be interpreted in conjunction to the patient's age, height and muscle mass. Sodium 137 135 - 145 mmol/L CERNER MILLENNIUM Potassium 3.7 3.5 - 5.0 mmol/L CERNER MILLENNIUM Comment: Please note: ??Patients with WBC >100,000 may have falsely elevated Potassium levels. ??For accurate Potassium quantification in these patients send serum separator tube (gold top) for subsequent determinations. ??Contact the Clinical Chemistry Laboratory if there are any questions. Chloride 102 98 - 107 mmol/L CERNER MILLENNIUM Carbon Dioxide 25 22 - 31 mmol/L CERNER MILLENNIUM Anion Gap 10 5 - 15 mmol/L CERNER MILLENNIUM Calcium 8.8 8.5 - 10.5 mg/dL CERNER MILLENNIUM Est Glomerular Filtration Rate >60 >=60 CERNER MILLENNIUM Comment: This estimated GFR (eGFR) value was calculated using the MDRD equation which has been validated on patients between the ages of 18 and 70. The MDRD should not be used to assess kidney function in patients < 18 years of age or in patients with extremes of body mass, or in patients with acute kidney failure. This value should be multiplied by 1.2 for patients. For further information please copy and paste the following links into your internet browser. http://www.nkdep.nih.gov/lab-evaluation.shtml http://www.kidney.org/professionals/ Blood specimen (specimen) 08/22/2013 4:03 AM EDT 08/22/2013 4:42 AM EDT Narrative Resulting Agency Comment Spec In Lab Tim rUibe MD CHEMISTRY ORDERABL ES CERBRIAN NELSON * (ABNORMAL) Cardiac Enzymes (08/22/2013 4:03 AM EDT) Troponin-T 0.95(H) <=0.03 ng/mL CERNER MILLENNIUM Comment: 0.03 ng/mL: Represents the 99th percentile upper reference limit for normals. >0.03 ng/mL: Elevated cardiac troponin T level indicative of myocardial damage. Diagnosis of acute, evolving or recent RI requires a typical rise and gradual fall of cTnT with at least ONE of the following: a) Ischemic symptoms b) Development of pathologic Q waves on the ECG c) ECG changes indicative of eschemia (S-T segment elevation/depression) d) Coronary artery intervention Serial bloods should be obtained for testing on admission, at 6 to 9 hrs and again at 12 to 24 hrs if earlier samples are negative and the clinical index of suspicion is high. Reference: [Myocardial infarction redefined a consensus document of the Joint Society of Cardiology/[place] College [employer] Committee for the redefinition of myocardial infarction. Journal of the [place] College of [employer]iology 2000; 36: 959-969] Creatine Kinase 455(H) 0 - 200 unit/L CERNER MILLENNIUM Blood specimen (specimen) 08/22/2013 4:03 AM EDT 08/22/2013 4:42 AM EDT Narrative Resulting Agency Comment Spec In Lab Tim Uribe MD CHEMISTRY ORDERABL ES Performing Organization Address City/[facility]/ZIP Co de Phone Number ARIAN CAENNIUM * (ABNORMAL) CBC (with Diff) (08/22/2013 4:03 AM EDT) White Blood Cell 10.0 4.0 - 10.0 x10(3)/mc L CERNER MILLENNIUM Red Blood Cell 4.17(L) 4.63 - 6.08 x10(6)/mc L CERNER MILLENNIUM Hemoglobin 12.7(L) 13.7 - 17.5 gm/dL CERNER MILLENNIUM Hematocrit 37.7(L) 40.0 - 51.0 % CERNER MILLENNIUM Mean Cell Volume 90.4 79.0 - 92.0 fL CERNER MILLENNIUM Mean Cell Hemoglobin 30.5 25.6 - 32.2 pg CERNER MILLENNIUM Mean Cell Hemoglobin Concentration 33.7 32.0 - 36.5 gm/dL CERNER MILLENNIUM Platelet 201 145 - 370 x10(3)/mc L CERNER MILLENNIUM RDW Standard Deviation 40.4 35.0 - 46.0 fL CERNER MILLENNIUM RDW coefficient of variation 12.4 10.9 - 14.4 % CERNER MILLENNIUM Mean Platelet Volume 11.2 9.0 - 12.0 fL CERNER MILLENNIUM Blood specimen (specimen) 08/22/2013 4:03 AM EDT 08/22/2013 4:42 AM EDT Narrative Resulting Agency Comment Spec In Lab Tim Uribe MD HEMATOLOGY ORDERAB LES ARIAN CERDAIUM * POCT Glucose (08/21/2013 10:43 PM EDT) Glucose, POC 193 60 - 199 mg/dL [facility] Comment: Supplemental ranges: <110 mg/dL before meals <200 mg/dL all other times of the day Blood specimen (specimen) 08/21/2013 10:43 PM EDT 08/21/2013 10:43 PM EDT Asad Biggs MD POINT OF CARE TEST O RDERABLES Performing Organization Address [facility] Co de Phone Number [facility] CAGreat DreamKEENA * (ABNORMAL) POCT Glucose (08/21/2013 8:28 PM EDT) Glucose, POC 259(H) 60 - 199 mg/dL [facility] Comment: Supplemental ranges: <110 mg/dL before meals <200 mg/dL all other times of the day Blood specimen (specimen) 08/21/2013 8:28 PM EDT 08/21/2013 8:28 PM EDT Asad Biggs MD POINT OF CARE TEST O DIMITRIERAHERNANDEZ Performing Organization Address [facility] Co de Phone Number [facility] CAFlipora * (ABNORMAL) Cardiac Enzymes (08/21/2013 6:36 PM EDT) Troponin-T 0.93(H) <=0.03 ng/mL [facility] Comment: 0.03 ng/mL: Represents the 99th percentile upper reference limit for normals. >0.03 ng/mL: Elevated cardiac troponin T level indicative of myocardial damage. Diagnosis of acute, evolving or recent RI requires a typical rise and gradual fall of cTnT with at least ONE of the following: a) Ischemic symptoms b) Development of pathologic Q waves on the ECG c) ECG changes indicative of eschemia (S-T segment elevation/depression) d) Coronary artery intervention Serial bloods should be obtained for testing on admission, at 6 to 9 hrs and again at 12 to 24 hrs if earlier samples are negative and the clinical index of suspicion is high. Reference: [Myocardial infarction redefined a consensus document of the Joint Society of Cardiology/[place] [employer] Committee for the redefinition of myocardial infarction. Journal of the [place] College of Cardiology 2000; 36: 959-969] Creatine Kinase 594(H) 0 - 200 unit/L [facility] Blood specimen (specimen) 08/21/2013 6:36 PM EDT 08/21/2013 6:47 PM EDT Narrative Resulting Agency Comment Spec In Lab Sarthak Pollard MD CHEMISTRY ORDERABLES Performing Organization Address [facility] Co de Phone Number [facility] * POCT Glucose (08/21/2013 4:25 PM EDT) Pathologist [facility] Glucose, POC 138 60 - 199 mg/dL [facility] Comment: Supplemental ranges: <110 mg/dL before meals <200 mg/dL all other times of the day Blood specimen (specimen) 08/21/2013 4:25 PM EDT 08/21/2013 4:25 PM EDT Asad Biggs MD POINT OF CARE TEST O RDERABLES Performing Organization Address [facility] de Phone Number [facility] Patient Conversation Media * EKG 12 Lead (08/21/2013 2:53 PM EDT) Ventricular rate 75 BPM MUSE SYSTEM Atrial Rate 75 BPM MUSE SYSTEM P-R Interval 172 ms MUSE SYSTEM QRS Duration 106 ms MUSE SYSTEM Q-T Interval 388 ms MUSE SYSTEM QTC Calculated (Bezet) 433 ms MUSE SYSTEM Calculated P Anderson 11 degrees MUSE SYSTEM Calculated R Anderson 35 degrees MUSE SYSTEM Calculated T Anderson 1 degrees MUSE SYSTEM INTERPRETATION Normal sinus rhythm Normal ECG When compared with ECG of 21-AUG-2013 02:54, No significant change was found Confirmed by Pablito Torres MD ([id number]) on 08/22/2013 3:01:48 PM MUSE SYSTEM 08/21/2013 2:53 PM EDT 08/22/2013 3:01 PM EDT Tim Uribe MD ECG ORDERABLES Performing Organization Address [facility] de Phone Number MUSE SYSTEM * Cardiac Catheterization (08/21/2013 2:38 PM EDT) Anatomical Region Laterality Modality Other Narrative 08/21/2013 7:29 PM EDT Procedure Note Provider, Scanning - 08/21/2013 3:30 PM EDT Asad Biggs MD CARDIAC CATH ORDERAB LES * (ABNORMAL) POCT Glucose (08/21/2013 11:37 AM EDT) Pathologist [facility] Glucose, POC 200(H) 60 - 199 mg/dL [facility] Comment: Supplemental ranges: <110 mg/dL before meals <200 mg/dL all other times of the day Blood specimen (specimen) 08/21/2013 11:37 AM EDT 08/21/2013 11:37 AM EDT Asad Biggs MD POINT OF CARE TEST O RDERABLES Performing Organization Address City/[facility]/ZIP Co de Phone Number [facility] * (ABNORMAL) APTT (08/21/2013 11:09 AM EDT) [facility] Partial Thromboplastin Time 63(H) 25 - 35 sec [facility] Comment: Recommended therapeutic PTT range for full dose unfractionated heparin is 80-114 seconds. Blood specimen (specimen) 08/21/2013 11:09 AM EDT 08/21/2013 11:42 AM EDT Narrative Resulting Agency Comment Spec In Lab Asad Biggs MD HEMATOLOGY ORDERABLE S Performing Organization Address [facility]/ZIP Co de Phone Number [facility] * Echocardiogram Transthoracic(Leb) (08/21/2013 9:16 AM EDT) Pathologist [facility] EF 65 HEARTLAB SYSTEM Anatomical Region Laterality Modality Other 08/21/2013 Narrative 08/21/2013 9:51 AM EDT Procedure: ? Transthoracic Echocardiogram Patient: ? QUIANA AUSTIN P ?(Age): 1975(38) Med Rec#: ?[id number] ? Sex: ?M ? Site Loc: ?DH ? Ht / Wt: ??180(cm)/127(kg) Pt. Loc: ? Adult Floor ?BSA: ?2.52 Study Date: ?08/21/2013 ? Pt. Type: Inpatient Tape: ? Referring: Eben Bingham Referring: AKANKSHA CAI Supervisor Drying And Winding: Patric Blunt [facility] Interpreting Fellow: Luca Wilson ([id number]) Diagnosis: ??Chest pain (786.50) CPT Code(s): ??Echo Full (38716), ??Spectral Doppler (98365), ??Color Doppler (70913), Indication(s): ??Chest Pain Rhythm: HR ?BP ?121/62 ?? SUMMARY: 1. Left ventricular chamber size, wall thickness, global and segmental systolic function are within normal limits. Ejection fraction is estimated to be 65%. Doppler assessment is consistent with elevated left sided filling pressure. 2. The right ventricle is not well visualized. The right ventricle is mildly dilated. Right ventricular global systolic function is probably normal. The estimated pulmonary artery systolic pressure is 28 mmHg. 3. The right atrium is mildly dilated. The left atrium is normal in size. 4. There is no hemodynamically significant valve disease. 5. See remainder of report for additional findings. FINDINGS: Left Ventricle ?Left ventricular chamber size, wall thickness, global and segmental systolic function are within normal limits. Ejection fraction is estimated to be 65%. ?Doppler assessment is consistent with elevated left sided filling pressure. Left Atrium ?The left atrium is normal in size. Right Ventricle ?The right ventricle is not well visualized. ?The right ventricle is mildly dilated. ?Right ventricular global systolic function is probably normal. ?The estimated pulmonary artery systolic pressure is 28 mmHg. Right Atrium ?The right atrium is mildly dilated. Aortic Valve ?The aortic valve is probably tricuspid. ?There is no evidence of aortic valve thickening. ?There is no evidence of aortic regurgitation. Mitral Valve ?The mitral valve appears normal in structure and function. ?There is trace mitral regurgitation present. Tricuspid Valve ?The tricuspid valve appears normal in structure and function. ?There is mild (1+/4+) tricuspid regurgitation present. Pulmonic Valve ?The pulmonic valve is not well visualized. ?There is mild (1+/4+) pulmonic regurgitation present. Pericardium ?The pericardium appears normal and there is no evidence of a pericardial effusion. Aorta ?The aortic root is normal in size. ?The ascending aorta is normal in size. Pulmonary Artery ?The main pulmonary artery appears normal. Venous ?The venous system is not well visualized. Misc ?There is no hemodynamically significant valve disease. ?I personally reviewed the image and agree with the resident's/fellow's interpretation. ?Two-dimensional echo, spectral Doppler and color Doppler performed. Wall Motion: Segment Name ?Rest ? Base-Anteroseptal ?? Normal ? Base-Anterior ? Normal ? Base-Anterolateral ??Normal ? Base-Posterolateral Normal ? Base-Inferior ? Normal ? Base-Inferoseptal ?? Normal ? Mid-Anteroseptal ?Normal ? Mid-Anterior ?Normal ? Mid-Anterolateral ?? Normal ? Mid-Posterolateral ??Normal ? Mid-Inferior ?Normal ? Mid-Inferoseptal ?Normal ? [place]-Septal ? Normal ? [place]-Anterior ? Normal ? [place]-Lateral ?Normal ? [place]-Inferior ? Normal ? [place]-Tip ?Normal ? Chambers ?Value ?Units (Range) ? LV EF Est ? 65 ? % (55 to 80) ? IVSd 2D ? 1 ?cm ? LVIDd 2D ?5.4 ?cm ? PWd 2D ?1.2 ?cm ? LVIDs 2D ?3.5 ?cm ? LVFS 2D ? 35 ? % ? LA area ? 18 ? cm2 (<21) ? RA area ? 23 ? cm2 (<18) ? Ao root ? 3.5 ?cm (2.1 to 3.6) ? Asc Ao ?3.3 ?cm (2 to 3.5) ? Mitral Valve ?Value ?Units (Range) ? E peak ?0.9 ?m/sec ? E/A ratio ? 1.5 ?ratio ? MVDT ?204 ?msec ? E1 ?0.06 ? m/sec ? E/E1 ?15 ? ratio ? Tricuspid/Pulmonic Valves ?Value ?Units (Range) ? TR peak annabelle ? 2.5 ?m/sec ? RAP ? 3 ?mmHg ? RVSP/PASP ? 28 ? mmHg ? This report has been electronically signed by: Umiar Brock MD ? 08/21/2013 09:50:27 Images reviewed and interpretation verified [facility] Resulting Agency Comment [id number] Procedure Note Umair Brock MD - 08/21/2013 Procedure: Transthoracic Echocardiogram Patient: QUIANA Llanos (Age): 1975(39) Med Rec#: [id number] Sex: M Site Loc: [facility] Ht / Wt: 180(cm)/127(kg) Pt. Loc: Adult Floor BSA: 2.52 Study Date: 08/21/2013 Pt. Type: Inpatient Tape: Referring: Eben Bingham Referring: AKANKSHA CAI Supervisor Drying And Winding: Patric Blunt [facility] Interpreting Fellow: Luca Wilson ([id number]) Diagnosis: Chest pain (786.50) CPT Code(s): Echo Full (00133), Spectral Doppler (29332), Color Doppler (17184), Indication(s): Chest Pain Rhythm: HR BP 121/62 SUMMARY: 1. Left ventricular chamber size, wall thickness, global and segmental systolic function are within normal limits. Ejection fraction is estimated to be 65%. Doppler assessment is consistent with elevated left sided filling pressure. 2. The right ventricle is not well visualized. The right ventricle is mildly dilated. Right ventricular global systolic function is probably normal. The estimated pulmonary artery systolic pressure is 28 mmHg. 3. The right atrium is mildly dilated. The left atrium is normal in size. 4. There is no hemodynamically significant valve disease. 5. See remainder of report for additional findings. FINDINGS: Left Ventricle Left ventricular chamber size, wall thickness, global and segmental systolic function are within normal limits. Ejection fraction is estimated to be 65%. Doppler assessment is consistent with elevated left sided filling pressure. Left Atrium The left atrium is normal in size. Right Ventricle The right ventricle is not well visualized. The right ventricle is mildly dilated. Right ventricular global systolic function is probably normal. The estimated pulmonary artery systolic pressure is 28 mmHg. Right Atrium The right atrium is mildly dilated. Aortic Valve The aortic valve is probably tricuspid. There is no evidence of aortic valve thickening. There is no evidence of aortic regurgitation. Mitral Valve The mitral valve appears normal in structure and function. There is trace mitral regurgitation present. Tricuspid Valve The tricuspid valve appears normal in structure and function. There is mild (1+/4+) tricuspid regurgitation present. Pulmonic Valve The pulmonic valve is not well visualized. There is mild (1+/4+) pulmonic regurgitation present. Pericardium The pericardium appears normal and there is no evidence of a pericardial effusion. Aorta The aortic root is normal in size. The ascending aorta is normal in size. Pulmonary Artery The main pulmonary artery appears normal. Venous The venous system is not well visualized. Misc There is no hemodynamically significant valve disease. I personally reviewed the image and agree with the resident's/fellow's interpretation. Two-dimensional echo, spectral Doppler and color Doppler performed. Wall Motion: Segment Name Rest Base-Anteroseptal Normal Base-Anterior Normal Base-Anterolateral Normal Base-Posterolateral Normal Base-Inferior Normal Base-Inferoseptal Normal Mid-Anteroseptal Normal Mid-Anterior Normal Mid-Anterolateral Normal Mid-Posterolateral Normal Mid-Inferior Normal Mid-Inferoseptal Normal [place]-Septal Normal [place]-Anterior Normal [place]-Lateral Normal [place]-Inferior Normal [place]-Tip Normal Chambers Value Units (Range) LV EF Est 65 % (55 to 80) IVSd 2D 1 cm LVIDd 2D 5.4 cm PWd 2D 1.2 cm LVIDs 2D 3.5 cm LVFS 2D 35 % LA area 18 cm2 (<21) RA area 23 cm2 (<18) Ao root 3.5 cm (2.1 to 3.6) Asc Ao 3.3 cm (2 to 3.5) Mitral Valve Value Units (Range) E peak 0.9 m/sec E/A ratio 1.5 ratio MVDT 204 msec E1 0.06 m/sec E/E1 15 ratio Tricuspid/Pulmonic Valves Value Units (Range) TR peak annabelle 2.5 m/sec RAP 3 mmHg RVSP/PASP 28 mmHg This report has been electronically signed by: Umair Brock MD 08/21/2013 09:50:27 Images reviewed and interpretation verified [facility] Eben Ruiz MD ECHO ORDERABLES * (ABNORMAL) POCT Glucose (08/21/2013 8:33 AM EDT) Glucose, POC 202(H) 60 - 199 mg/dL [facility] Comment: Supplemental ranges: <110 mg/dL before meals <200 mg/dL all other times of the day Blood specimen (specimen) 08/21/2013 8:33 AM EDT 08/21/2013 8:33 AM EDT Asad Biggs MD POINT OF CARE TEST O RDERABLES CERBRIAN CAENNIUM * (ABNORMAL) APTT (08/21/2013 3:53 AM EDT) Partial Thromboplastin Time 61(H) 25 - 35 sec CERNER MILLENNIUM Comment: Recommended therapeutic PTT range for full dose unfractionated heparin is 80-114 seconds. Blood specimen (specimen) 08/21/2013 3:53 AM EDT 08/21/2013 4:00 AM EDT Narrative Resulting Agency Comment Spec In Lab Eben Ruiz MD HEMATOLOGY ORDERABLE S Performing Organization Address City/[facility]/ZIP Co de Phone Number CERBRIAN CAENNIUM * (ABNORMAL) Differential, Automated (08/21/2013 3:53 AM EDT) Neutrophil % 70.9 34.0 - 71.0 % CERNER MILLENNIUM Neutrophil Absolute 9.11(H) 1.50 - 6.30 x10(3)/mc L CERNER MILLENNIUM Lymph % 22.3 19.0 - 53.0 % CERNER MILLENNIUM Lymphocytes Abs 2.9 1.0 - 3.6 x10(3)/mc L CERNER MILLENNIUM Monocyte % 5.1 4.0 - 13.0 % CERNER MILLENNIUM Monocyte Abs 0.7 0.2 - 1.0 x10(3)/mc L CERNER MILLENNIUM Eos % 1.2 0.0 - 7.0 % CERNER MILLENNIUM Eosinophils Abs 0.2 0.0 - 0.5 x10(3)/mc L CERNER MILLENNIUM Basophil % 0.2 0.0 - 2.0 % CERNER MILLENNIUM Baso Absolute 0.0 0.0 - 0.2 x10(3)/mc L CERNER MILLENNIUM Immature Gran % 0.30 0.00 - 0.66 % CERNER MILLENNIUM Comment: Immature granulocytes(IG's)percentage and absolute count will include metamyelocytes, myelocytes, and promyelocytes. Blood smears from CBCs yielding IG's will be scanned manually for concordance. If this scan disagrees with the automated IG or if promyelocytes are noted, a manual differential will be performed. Immature Gran Absolute 0.04 0.00 - 0.05 x10(3)/mc L [facility] Patient Conversation Media Blood specimen (specimen) 08/21/2013 3:53 AM EDT 08/21/2013 4:00 AM EDT Eben Ruiz MD HEMATOLOGY ORDERABLE S Performing Organization Address [facility] Co de Phone Number ARIAN CAFlipora * (ABNORMAL) Cardiac Enzymes (08/21/2013 3:53 AM EDT) Troponin-T 1.06(H) <=0.03 ng/mL [facility] Patient Conversation Media Comment: 0.03 ng/mL: Represents the 99th percentile upper reference limit for normals. >0.03 ng/mL: Elevated cardiac troponin T level indicative of myocardial damage. Diagnosis of acute, evolving or recent RI requires a typical rise and gradual fall of cTnT with at least ONE of the following: a) Ischemic symptoms b) Development of pathologic Q waves on the ECG c) ECG changes indicative of eschemia (S-T segment elevation/depression) d) Coronary artery intervention Serial bloods should be obtained for testing on admission, at 6 to 9 hrs and again at 12 to 24 hrs if earlier samples are negative and the clinical index of suspicion is high. Reference: [Myocardial infarction redefined a consensus document of the Joint Society of Cardiology/[place] College [employer] Cardiology Committee for the redefinition of myocardial infarction. Journal of the [place] College of Cardiology 2000; 36: 959-969] Creatine Kinase 777(H) 0 - 200 unit/L [facility] Blood specimen (specimen) 08/21/2013 3:53 AM EDT 08/21/2013 4:00 AM EDT Narrative Resulting Agency Comment Spec In Lab Eben Ruiz MD CHEMISTRY ORDERABLES Performing Organization Address [facility] Co de Phone Number ARIAN CAFlipora * (ABNORMAL) BMP w/fasting Glucose (08/21/2013 3:53 AM EDT) Glucose Fasting 230(H) 65 - 99 mg/dL CERNER MILLENNIUM Comment: ?Fasting* Glucose Interpretive Criteria Normal ?65-99 mg/dL Impaired Fasting glucose ?100-125 mg/dL Consistent with Diabetes Mellitus ? >or= 126 mg/dL *Fasting is defined as no caloric intake for at least 8 hours In the absence of unequivocal hyperglycemia a plasma glucose value of >or= 126 mg/dL should be repeated on a subsequent day. Diagnosis and Classification of Diabetes Mellitus, Position Statement from the [place] Diabetes Association. ??Diabetes Care, Volume 33, Supplement 1, Nov 2009 Blood Urea Nitrogen 15 10 - 20 mg/dL CERNER MILLENNIUM Creatinine 0.67(L) 0.80 - 1.50 mg/dL CERNER MILLENNIUM Comment: Please note that the pediatric reference intervals supplied above were not validated at [facility]. Results from pediatric patients should be interpreted in conjunction to the patient's age, height and muscle mass. Sodium 135 135 - 145 mmol/L CERNER MILLENNIUM Potassium 3.5 3.5 - 5.0 mmol/L CERNER MILLENNIUM Comment: Please note: ??Patients with WBC >100,000 may have falsely elevated Potassium levels. ??For accurate Potassium quantification in these patients send serum separator tube (gold top) for subsequent determinations. ??Contact the Clinical Chemistry Laboratory if there are any questions. Chloride 101 98 - 107 mmol/L CERNER MILLENNIUM Carbon Dioxide 22 22 - 31 mmol/L CERNER MILLENNIUM Anion Gap 12 5 - 15 mmol/L CERNER MILLENNIUM Calcium 8.7 8.5 - 10.5 mg/dL CERNER MILLENNIUM Est Glomerular Filtration Rate >60 >=60 CERNER MILLENNIUM Comment: This estimated GFR (eGFR) value was calculated using the MDRD equation which has been validated on patients between the ages of 18 and 70. The MDRD should not be used to assess kidney function in patients < 18 years of age or in patients with extremes of body mass, or in patients with acute kidney failure. This value should be multiplied by 1.2 for patients. For further information please copy and paste the following links into your internet browser. http://www.nkdep.nih.gov/lab-evaluation.shtml http://www.kidney.org/professionals/ Blood specimen (specimen) 08/21/2013 3:53 AM EDT 08/21/2013 4:00 AM EDT Narrative Resulting Agency Comment Spec In Lab Eben Ruiz MD CHEMISTRY ORDERABLES CERNER MILLENNIUM * (ABNORMAL) CBC (with Diff) (08/21/2013 3:53 AM EDT) White Blood Cell 12.9(H) 4.0 - 10.0 x10(3)/mc L CERNER MILLENNIUM Red Blood Cell 4.23(L) 4.63 - 6.08 x10(6)/mc L CERNER MILLENNIUM Hemoglobin 13.0(L) 13.7 - 17.5 gm/dL CERNER MILLENNIUM Hematocrit 37.9(L) 40.0 - 51.0 % CERNER MILLENNIUM Mean Cell Volume 89.6 79.0 - 92.0 fL CERNER MILLENNIUM Mean Cell Hemoglobin 30.7 25.6 - 32.2 pg CERNER MILLENNIUM Mean Cell Hemoglobin Concentration 34.3 32.0 - 36.5 gm/dL CERNER MILLENNIUM Platelet 198 145 - 370 x10(3)/mc L CERNER MILLENNIUM RDW Standard Deviation 39.4 35.0 - 46.0 fL CERNER MILLENNIUM RDW coefficient of variation 12.3 10.9 - 14.4 % CERNER MILLENNIUM Mean Platelet Volume 11.1 9.0 - 12.0 fL CERNER MILLENNIUM Blood specimen (specimen) 08/21/2013 3:53 AM EDT 08/21/2013 4:00 AM EDT Narrative Resulting Agency Comment Spec In Lab Asad Biggs MD HEMATOLOGY ORDERABLE S CERNER MILLENNIUM * Prothrombin Time (08/21/2013 3:53 AM EDT) Prothrombin Time 13.5 12.0 - 15.0 sec [facility] Comment: [facility] Transfusion Committee Guidelines: INR less than 2.0, PTT less than OR equal to 43.5 seconds, or Fibrinogen greater than or equal to 100 mg/dl indicate adequate procoagulant activity for hemostasis in patients without underlying bleeding disorders. International Normalization Ratio 1.0 0.9 - 1.1 [facility] Blood specimen (specimen) 08/21/2013 3:53 AM EDT 08/21/2013 4:00 AM EDT Narrative Resulting Agency Comment Spec In Lab Asad Biggs MD HEMATOLOGY ORDERABLE S Performing Organization Address [facility] de Phone Number [facility] * (ABNORMAL) Triglyceride (08/21/2013 3:53 AM EDT) Triglyceride 733(H) <=149 mg/dL [facility] Comment: Reference Range: Normal triglycerides: ??<150 mg/dL Borderline high: ??150-199 mg/dL High: ??200-499 mg/dL Very high: ??>fu=894 mg/dL ELISEO 2001; 285(19):9131-6384 Blood specimen (specimen) 08/21/2013 3:53 AM EDT 08/21/2013 4:00 AM EDT Narrative Resulting Agency Comment Spec In Lab Eben Ruiz MD CHEMISTRY ORDERABLES Performing Organization Address [facility] de Phone Number [facility] * (ABNORMAL) HDL/Cholesterol Profile (08/21/2013 3:53 AM EDT) Cholesterol, Total 218(H) <=199 mg/dL [facility] Comment: Recommendations of the NCEP Adult Treatment Panel for the following risk cutoff thresholds for the [place] population: Desirable: <200 mg/dL Borderline High: 200-239 mg/dL High: > or = 240 mg/dL HDL Cholesterol 24(L) >=40 mg/dL [facility] Comment: Reference range: ??Low HDL: ?? < 40 mg/dL ??Normal: ?40-60 mg/dL ??Desirable: > 60 mg/dL ELISEO 2001; 285(19):5851-8187 Cholesterol/HDL Ratio 9.1 ratio [facility] Comment: A Cholesterol to HDL ratio below 4:1 is desirable. ??Studies suggest that increased CAD risk occurs at ratios above 5 for females and above 6 for men. ? [place] Heart Association ??(http://www.americanheart.org) ? Jazmine Int Med, 1994; 121:641 ? AM J Med, 1998; 105(1A):48S Blood specimen (specimen) 08/21/2013 3:53 AM EDT 08/21/2013 4:00 AM EDT Narrative Resulting Agency Comment Spec In Lab Eben Ruiz MD CHEMISTRY ORDERABLES [facility] * (ABNORMAL) LDL Cholesterol, Direct (08/21/2013 3:53 AM EDT) LDL Cholesterol, Direct 107(H) <=99 mg/dL [facility] Comment: The National Cholesterol Education Program (NCEP) has set the following guidelines for LDL Cholesterol: Reference range: ?? Optimal: ?<100 mg/dL ?? Near Optimal/Above Optimal: ?? 100-129 mg/dL ?? Borderline high: ?130-159 mg/dL ?? High: ? 160-189 mg/dL ?? Very high: ?>bj=352 mg/dL ELISEO 2001: 285(19):8491-6852 Blood specimen (specimen) 08/21/2013 3:53 AM EDT 08/21/2013 4:00 AM EDT Narrative Resulting Agency Comment Spec In Lab Eben Ruiz MD CHEMISTRY ORDERABLES [facility] * (ABNORMAL) Hemoglobin A1c (08/21/2013 3:53 AM EDT) Hemoglobin A1c 10.0(H) 4.3 - 6.1 % [facility] Comment: The [place] Diabetes Association (ADA) has stated that HbA1c values >or= 6.5% are consistent with the diagnosis of diabetes mellitus. In the absence of hyperglycemia (i.e. plasma glucose > 200 mg/dL) or classic symptoms of hyperglycemia a repeat measurement of HbA1c should be performed on a separate sample to confirm the diagnosis. The ADA also considers an HbA1c value between 5.7% and 6.4% to be consistent with an increased risk of diabetes (prediabetes). Patients with an HbA1c value in this range should be counseled about their increased risk of progressing to diabetes. Reference: Position Statement: Standards of Medical Care in Diabetes 2013. Diabetes Care 2013:36;suppl 1:S11-S66. Estimated Average Glucose 240 mg/dL [facility] Comment: eAG equivalents for HbA1c percentages: HbA1c(%) ?eAG(mg/dL) 6.0 ?126 6.5 ?140 7.0 ?154 7.5 ?169 8.0 ?183 8.5 ?197 9.0 ?212 9.5 ?226 10.0 ? 240 Limitations: The eAG calculation has not been validated on women, individuals below 18 years old and above 70 years old, and individuals with hemoglobinopathies. Additional resources are available on the ADA website: ??http://professional.diabetes.org/glucosecalculator.aspx James MCMAHON, Kayli J, Doretha R, et al. ??Translating the A1C assay into estimated average glucose values. ??Diabetes Care 2008:31(8):9934-9284. Blood specimen (specimen) 08/21/2013 3:53 AM EDT 08/21/2013 4:00 AM EDT Narrative Resulting Agency Comment Spec In Lab Eben Ruiz MD CHEMISTRY ORDERABLES Performing Organization Address [facility] de Phone Number [facility] * EKG 12 Lead (08/21/2013 2:54 AM EDT) Ventricular rate 68 BPM MUSE SYSTEM Atrial Rate 68 BPM MUSE SYSTEM P-R Interval 188 ms MUSE SYSTEM QRS Duration 104 ms MUSE SYSTEM Q-T Interval 406 ms MUSE SYSTEM QTC Calculated (Bezet) 431 ms MUSE SYSTEM Calculated P Anderson 4 degrees MUSE SYSTEM Calculated R Anderson 28 degrees MUSE SYSTEM Calculated T Anderson 21 degrees MUSE SYSTEM INTERPRETATION Normal sinus rhythm Nonspecific T wave abnormality Abnormal ECG When compared with ECG of 20-AUG-2013 15:19, No significant change was found Confirmed by Brian DE Pablito ([id number]) on 08/21/2013 12:56:35 PM MUSE SYSTEM 08/21/2013 2:54 AM EDT 08/21/2013 12:56 PM EDT Eben Ruiz MD ECG ORDERABLES Performing Organization Address [facility] Phone Number MUSE SYSTEM * (ABNORMAL) POCT Glucose (08/21/2013 1:59 AM EDT) Pathologist [facility] Glucose, POC 262(H) 60 - 199 mg/dL [facility] Comment: Supplemental ranges: <110 mg/dL before meals <200 mg/dL all other times of the day Blood specimen (specimen) 08/21/2013 1:59 AM EDT 08/21/2013 1:59 AM EDT Asad Biggs MD POINT OF CARE TEST O RDERABLES Performing Organization Address [facility]/ZIP Co de Phone Number [facility] * (ABNORMAL) POCT Glucose (08/20/2013 11:54 PM EDT) Glucose, POC 290(H) 60 - 199 mg/dL [facility] Comment: Supplemental ranges: <110 mg/dL before meals <200 mg/dL all other times of the day Blood specimen (specimen) 08/20/2013 11:54 PM EDT 08/20/2013 11:54 PM EDT Asad Biggs MD POINT OF CARE TEST O RDERABLES Performing Organization Address [facility] Co de Phone Number [facility] * APTT (08/20/2013 11:51 PM EDT) Partial Thromboplastin Time 35 25 - 35 sec [facility] Comment: Recommended therapeutic PTT range for full dose unfractionated heparin is 80-114 seconds. Blood specimen (specimen) 08/20/2013 11:51 PM EDT 08/21/2013 12:01 AM EDT Narrative Resulting Agency Comment Spec In Lab Asad Biggs MD HEMATOLOGY ORDERABLE S Performing Organization Address [facility] Phone Number [facility] * (ABNORMAL) Cardiac Enzymes (08/20/2013 9:40 PM EDT) Troponin-T 0.74(H) <=0.03 ng/mL [facility] Comment: 0.03 ng/mL: Represents the 99th percentile upper reference limit for normals. >0.03 ng/mL: Elevated cardiac troponin T level indicative of myocardial damage. Diagnosis of acute, evolving or recent RI requires a typical rise and gradual fall of cTnT with at least ONE of the following: a) Ischemic symptoms b) Development of pathologic Q waves on the ECG c) ECG changes indicative of eschemia (S-T segment elevation/depression) d) Coronary artery intervention Serial bloods should be obtained for testing on admission, at 6 to 9 hrs and again at 12 to 24 hrs if earlier samples are negative and the clinical index of suspicion is high. Reference: [Myocardial infarction redefined a consensus document of the Joint Society of Cardiology/[place] [employer] Cardiology Committee for the redefinition of myocardial infarction. Journal of the [place] College of Cardiology 2000; 36: 959-969] Creatine Kinase 828(H) 0 - 200 unit/L ARIAN NELSON Blood specimen (specimen) 08/20/2013 9:40 PM EDT 08/20/2013 9:47 PM EDT Narrative Resulting Agency Comment Spec In Lab Eben Ruiz MD CHEMISTRY ORDERABLES ARIAN NELSON * XR chest routine PA & lateral (08/20/2013 9:18 PM EDT) Anatomical Region Laterality Modality Chest N/A Radiographic Sally ging 08/20/2013 9:18 PM EDT Narrative 08/21/2013 9:19 AM EDT Examination CHEST ROUTINE 2 VIEWS/CORE Clinical History chest pa Comparison 02/09/2012. Technique Findings There is a new vertical band of opacity in the retrocardiac region of the left lung most likely representing discoid atelectasis. ??Not the remainder of the left lung and right lung are clear. ??There is no other interval change. ??Again noted are sternotomy wires. Impression Mild discoid atelectasis left lower lobe. ??No other abnormality. Procedure Note Erick Bobo MD - 08/21/2013 Examination CHEST ROUTINE 2 VIEWS/CORE Clinical History chest pa Comparison 02/09/2012. Technique Findings There is a new vertical band of opacity in the retrocardiac region of theleft lung most likely representing discoid atelectasis. Not the remainder ofthe left lung and right lung are clear. There is no other interval change.Again noted are sternotomy wires. Impression Mild discoid atelectasis left lower lobe. No other abnormality. Eben Ruiz MD IMG DX ORDERABLES * (ABNORMAL) POCT Glucose (08/20/2013 8:26 PM EDT) Glucose, POC 200(H) 60 - 199 mg/dL [facility] Comment: Supplemental ranges: <110 mg/dL before meals <200 mg/dL all other times of the day Blood specimen (specimen) 08/20/2013 8:26 PM EDT 08/20/2013 8:26 PM EDT Asad Biggs MD POINT OF CARE TEST O RDERABLES Performing Organization Address [facility] Phone Number [facility] * (ABNORMAL) POCT Glucose (08/20/2013 5:03 PM EDT) Glucose, POC 230(H) 60 - 199 mg/dL [facility] Comment: Supplemental ranges: <110 mg/dL before meals <200 mg/dL all other times of the day Blood specimen (specimen) 08/20/2013 5:03 PM EDT 08/20/2013 5:03 PM EDT Asad Biggs MD POINT OF CARE TEST O RDERABLES Performing Organization Address [facility] Phone Number [facility] * EKG 12 Lead (08/20/2013 3:19 PM EDT) Ventricular rate 68 BPM MUSE SYSTEM Atrial Rate 68 BPM MUSE SYSTEM P-R Interval 182 ms MUSE SYSTEM QRS Duration 100 ms MUSE SYSTEM Q-T Interval 410 ms MUSE SYSTEM QTC Calculated (Bezet) 435 ms MUSE SYSTEM Calculated P Anderson 3 degrees MUSE SYSTEM Calculated R Anderson 19 degrees MUSE SYSTEM Calculated T Anderson 35 degrees MUSE SYSTEM INTERPRETATION Normal sinus rhythm Cannot rule out Inferior infarct (cited on or before 30-DEC-2011) When compared with ECG of 09-FEB-2012 10:55, Vent. rate has decreased BY ??34 BPM T wave inversion no longer evident in Anterior leads Confirmed by Pablito Torres MD ([id number]) on 08/20/2013 5:30:42 PM MUSE SYSTEM 08/20/2013 3:19 PM EDT 08/20/2013 5:30 PM EDT Asad Biggs MD ECG ORDERABLES MUSE SYSTEM * (ABNORMAL) Differential, Automated (08/20/2013 1:45 PM EDT) Neutrophil % 66.6 34.0 - 71.0 % CERNER MILLENNIUM Neutrophil Absolute 8.13(H) 1.50 - 6.30 x10(3)/mc L CERNER MILLENNIUM Lymph % 25.9 19.0 - 53.0 % CERNER MILLENNIUM Lymphocytes Abs 3.2 1.0 - 3.6 x10(3)/mc L CERNER MILLENNIUM Monocyte % 5.6 4.0 - 13.0 % CERNER MILLENNIUM Monocyte Abs 0.7 0.2 - 1.0 x10(3)/mc L CERNER MILLENNIUM Eos % 1.3 0.0 - 7.0 % CERNER MILLENNIUM Eosinophils Abs 0.2 0.0 - 0.5 x10(3)/mc L CERNER MILLENNIUM Basophil % 0.3 0.0 - 2.0 % CERNER MILLENNIUM Baso Absolute 0.0 0.0 - 0.2 x10(3)/mc L CERNER MILLENNIUM Immature Gran % 0.30 0.00 - 0.66 % CERNER MILLENNIUM Comment: Immature granulocytes(IG's)percentage and absolute count will include metamyelocytes, myelocytes, and promyelocytes. Blood smears from CBCs yielding IG's will be scanned manually for concordance. If this scan disagrees with the automated IG or if promyelocytes are noted, a manual differential will be performed. Immature Gran Absolute 0.04 0.00 - 0.05 x10(3)/mc L CERNER MILLENNIUM Blood specimen (specimen) 08/20/2013 1:45 PM EDT 08/20/2013 1:45 PM EDT Asad Biggs MD HEMATOLOGY ORDERABLE S [facility] NELSON * Magnesium (08/20/2013 1:45 PM EDT) Magnesium 0.74 0.69 - 1.07 mmol/L CERNER MILLENNIUM Blood specimen (specimen) 08/20/2013 1:45 PM EDT 08/20/2013 1:54 PM EDT Narrative Resulting Agency Comment Spec In Lab Asad Biggs MD CHEMISTRY ORDERABLES Performing Organization Address [facility] Co de Phone Number ARIAN NELSON * (ABNORMAL) Cardiac Enzymes (08/20/2013 1:45 PM EDT) Troponin-T 0.34(H) <=0.03 ng/mL [facility] Patient Conversation Media Comment: 0.03 ng/mL: Represents the 99th percentile upper reference limit for normals. >0.03 ng/mL: Elevated cardiac troponin T level indicative of myocardial damage. Diagnosis of acute, evolving or recent RI requires a typical rise and gradual fall of cTnT with at least ONE of the following: a) Ischemic symptoms b) Development of pathologic Q waves on the ECG c) ECG changes indicative of eschemia (S-T segment elevation/depression) d) Coronary artery intervention Serial bloods should be obtained for testing on admission, at 6 to 9 hrs and again at 12 to 24 hrs if earlier samples are negative and the clinical index of suspicion is high. Reference: [Myocardial infarction redefined a consensus document of the Joint Society of Cardiology/[place] [employer] Committee for the redefinition of myocardial infarction. Journal of the [place] [employer] 2000; 36: 959-969] Creatine Kinase 505(H) 0 - 200 unit/L [facility] Patient Conversation Media Blood specimen (specimen) 08/20/2013 1:45 PM EDT 08/20/2013 1:54 PM EDT Narrative Resulting Agency Comment Spec In Lab Asad Biggs MD CHEMISTRY ORDERABLES Performing Organization Address [facility]/ZIP Co de Phone Number ARIAN NELSON * (ABNORMAL) Basic Metabolic Panel (non-fasting) (08/20/2013 1:45 PM EDT) Glucose 246(H) 60 - 199 mg/dL [facility] eWiseIUM Comment:Diabetes: >=200 mg/d L plus symptoms Blood Urea Nitrogen 15 10 - 20 mg/dL [facility] MILLENNIUM Creatinine 0.68(L) 0.80 - 1.50 mg/dL CERNER MILLENNIUM Comment: Please note that the pediatric reference intervals supplied above were not validated at [facility]. Results from pediatric patients should be interpreted in conjunction to the patient's age, height and muscle mass. Sodium 138 135 - 145 mmol/L CERNER MILLENNIUM Potassium 4.1 3.5 - 5.0 mmol/L CERNER MILLENNIUM Comment: Please note: ??Patients with WBC >100,000 may have falsely elevated Potassium levels. ??For accurate Potassium quantification in these patients send serum separator tube (gold top) for subsequent determinations. ??Contact the Clinical Chemistry Laboratory if there are any questions. Chloride 102 98 - 107 mmol/L CERNER MILLENNIUM Carbon Dioxide 22 22 - 31 mmol/L CERNER MILLENNIUM Anion Gap 14 5 - 15 mmol/L CERNER MILLENNIUM Calcium 9.3 8.5 - 10.5 mg/dL CERNER MILLENNIUM Est Glomerular Filtration Rate >60 >=60 CERNER MILLENNIUM Comment: This estimated GFR (eGFR) value was calculated using the MDRD equation which has been validated on patients between the ages of 18 and 70. The MDRD should not be used to assess kidney function in patients < 18 years of age or in patients with extremes of body mass, or in patients with acute kidney failure. This value should be multiplied by 1.2 for patients. For further information please copy and paste the following links into your internet browser. http://www.nkdep.nih.gov/lab-evaluation.shtml http://www.kidney.org/professionals/ Blood specimen (specimen) 08/20/2013 1:45 PM EDT 08/20/2013 1:54 PM EDT Narrative Resulting Agency Comment Spec In Lab Asad Biggs MD CHEMISTRY ORDERABLES ARIAN NELSON * (ABNORMAL) APTT (08/20/2013 1:45 PM EDT) [facility] Partial Thromboplastin Time 40(H) 25 - 35 sec ARIAN MILLYARYIUM Comment: Recommended therapeutic PTT range for full dose unfractionated heparin is 80-114 seconds. Blood specimen (specimen) 08/20/2013 1:45 PM EDT 08/20/2013 1:45 PM EDT Narrative Resulting Agency Comment Spec In Lab Asad Biggs MD HEMATOLOGY ORDERABLE S Performing Organization Address [facility] Co de Phone Number [facility] * Prothrombin Time (08/20/2013 1:45 PM EDT) Prothrombin Time 13.7 12.0 - 15.0 sec [facility] Comment: [facility] SYSTEM Transfusion Committee Guidelines: INR less than 2.0, PTT less than OR equal to 43.5 seconds, or Fibrinogen greater than or equal to 100 mg/dl indicate adequate procoagulant activity for hemostasis in patients without underlying bleeding disorders. International Normalization Ratio 1.0 0.9 - 1.1 [facility] Blood specimen (specimen) 08/20/2013 1:45 PM EDT 08/20/2013 1:45 PM EDT Narrative Resulting Agency Comment Spec In Lab Asad Biggs MD HEMATOLOGY ORDERABLE S Performing Organization Address [facility] Phone Number [facility] * D-Dimer, Quantitative (08/20/2013 1:45 PM EDT) Pathologist [facility] D-Dimer <200 0 - 500 FEU ng/ml [facility] Comment: The D-Dimer assay is used to aid in the diagnosis of deep vein thrombosis and pulmonary embolism. A normal D-Dimer result (less than 500 FEU ng/ml) has a negative predictive value of approximately 95% for the exclusion of acute PE and DVT when there is low to moderate pretest probability. Blood specimen (specimen) 08/20/2013 1:45 PM EDT 08/20/2013 1:45 PM EDT Narrative Resulting Agency Comment Spec In Lab Asad Biggs MD HEMATOLOGY ORDERABLE S Performing Organization Address [facility] Co de Phone Number [facility] * (ABNORMAL) CBC (with Diff) (08/20/2013 1:45 PM EDT) White Blood Cell 12.2(H) 4.0 - 10.0 x10(3)/mc L CERNER MILLENNIUM Red Blood Cell 4.75 4.63 - 6.08 x10(6)/mc L CERNER MILLENNIUM Hemoglobin 14.7 13.7 - 17.5 gm/dL CERNER MILLENNIUM Hematocrit 42.3 40.0 - 51.0 % CERNER MILLENNIUM Mean Cell Volume 89.1 79.0 - 92.0 fL CERNER MILLENNIUM Mean Cell Hemoglobin 30.9 25.6 - 32.2 pg CERNER MILLENNIUM Mean Cell Hemoglobin Concentration 34.8 32.0 - 36.5 gm/dL CERNER MILLENNIUM Platelet 247 145 - 370 x10(3)/mc L CERNER MILLENNIUM RDW Standard Deviation 39.1 35.0 - 46.0 fL CERNER MILLENNIUM RDW coefficient of variation 12.3 10.9 - 14.4 % CERNER MILLENNIUM Mean Platelet Volume 11.4 9.0 - 12.0 fL ARIAN CAENNIUM Blood specimen (specimen) 08/20/2013 1:45 PM EDT 08/20/2013 1:45 PM EDT Narrative Resulting Agency Comment Spec In Lab Asad Biggs MD HEMATOLOGY ORDERABLE S Performing Organization Address [facility] de Phone Number ARIAN NELSON * Lavender Tube HOLD (08/20/2013 1:45 PM EDT) Pathologist [facility] Lavender Hold Sample in lab. ARIAN NELSON Blood specimen (specimen) 08/20/2013 1:45 PM EDT 08/20/2013 1:45 PM EDT Asad iBggs MD HEMATOLOGY ORDERABLE S ARIAN CERDAIUM * Blue Tube HOLD (08/20/2013 1:45 PM EDT) Pathologist [facility] Blue Hold Sample in lab. ARIAN CERDAIUM Blood specimen (specimen) 08/20/2013 1:45 PM EDT 08/20/2013 1:45 PM EDT Asad Biggs MD HEMATOLOGY ORDERABLE S Performing Organization Address [facility] de Phone Number ARIAN NELSON * Green Tube HOLD (08/20/2013 1:45 PM EDT) Green Hold Sample in lab. ARIAN NELSON Blood specimen (specimen) 08/20/2013 1:45 PM EDT 08/20/2013 1:45 PM EDT Asad Biggs MD CHEMISTRY ORDERABLES Performing Organization Address [facility] de Phone Number ARIAN NELSON * (ABNORMAL) POCT Glucose (08/20/2013 1:23 PM EDT) Glucose, POC 243(H) 60 - 199 mg/dL ARIAN NELSON Comment: Supplemental ranges: <110 mg/dL before meals <200 mg/dL all other times of the day Blood specimen (specimen) 08/20/2013 1:23 PM EDT 08/20/2013 1:23 PM EDT Asad Biggs MD POINT OF CARE TEST O RDERABLES Performing Organization Address [facility] de Phone Number ARIAN NELSON documented in this encounter Visit Diagnoses Diagnosis NSTEMI (non-ST elevated myocardial infarction)- Primary Acute myocardial infarction, subendocardial infarction, episode of care unspecified Chest pain Chest pain, unspecified Coronary artery disease Coronary atherosclerosis of unspecified type of vessel, [place] or graft ACS (acute coronary syndrome) Intermediate coronary syndrome SOB (shortness of breath) Shortness of breath NSTEMI (non-ST elevated myocardial infarction) Acute myocardial infarction, subendocardial infarction, episode of care unspecified HTN (hypertension) Unspecified essential hypertension Hyperlipidemia Other and unspecified hyperlipidemia 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 (SVG to PDA closed 08/2013) Coronary atherosclerosis of unspecified type of vessel, [place] or graft Diabetes mellitus Type II or unspecified type diabetes mellitus without mention of complication, not stated as uncontrolled Depression Depressive disorder, not elsewhere classified 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 Obesity Obesity, unspecified documented in this encounter Administered Medications Inactive Administered Medications - up to 3 most recent administrations Medication Order MAR Action Action Date Dose Rate Site acetaminophen (TYLENOL) tablet 1,000 mg 1,000 mg, Oral, EVERY 6 HOURS PRN, Starting on Wed08/20/13 at 1528, Until Wed08/22/13 at 1741, Pain, Maximum dose of acetaminophen is 4000 mg from all sources in 24 hours., Routine Given 08/21/2013 2:17 AM EDT 1,000 mg aspirin chewable tablet 81 mg 81 mg, Oral, DAILY, First dose on Wed08/20/13 at 1545, Until Discontinued, Routine Given 08/21/2013 9:00 AM EDT 81 mg aspirin EC tablet 81 mg 81 mg, Oral, DAILY, First dose on Wed08/22/13 at 0900, Until Discontinued, Routine Given 08/22/2013 8:57 AM EDT 81 mg clopidogrel (PLAVIX) tablet 75 mg 75 mg, Oral, DAILY, First dose on Wed08/22/13 at 0900, Until Discontinued, Routine Given 08/22/2013 8:57 AM EDT 75 mg diaZEPam (VALIUM) tablet 5 mg 5 mg, Oral, ONCE, 1 dose, On Wed08/21/13 at 1215, Cath (Day of Procedure), Routine Given 08/21/2013 12:01 PM EDT 5 mg diphenhydrAMINE (BENADRYL) capsule 25 mg 25 mg, Oral, ONCE, 1 dose, On Wed08/21/13 at 1215, Cath (Day of Procedure), Routine Given 08/21/2013 12:00 PM EDT 25 mg famotidine (PEPCID) tablet 20 mg 20 mg, Oral, 2 TIMES DAILY, First dose on Wed08/20/13 at 2100, Until Discontinued, Routine Given 08/21/2013 8:58 AM EDT 20 mg Given 08/20/2013 8:16 PM EDT 20 mg flu vaccine (36 mos+) (PF) (FLUZONE) 45 mcg/0.5 mL IM injection 0.5 mL 0.5 mL, Intramuscular, PRIOR TO DISCHARGE, 1 dose, Starting on Wed08/20/13 at 1800, Until Wed08/22/13 at 1216, Per Protocol, Routine Given 08/22/2013 12:16 PM EDT 0.5 mLs Left Deltoid heparin (porcine) 25,000 unit/500 mL (50 unit/mL) infusion 1 dose, Starting on Wed08/20/13 at 1319, Until Wed08/20/13 at 1330, MATIAS CAGLE: cabinet override heparin (porcine) injection 2,000-4,000 Units 2,000-4,000 Units, Intravenous, BOLUS PER HEPARIN PROTOCOL, Starting on Wed08/20/13 at 1446, Until Wed08/21/13 at 1525, Per Protocol, Adjust to dosing chart, Patient Weight 115-greater kg PTT less than 60 seconds - 4,000 units PTT 60-79 seconds - 2,000 units PTT 80-114 seconds - no bolus , Routine Given 08/21/2013 12:33 AM EDT 4,000 Units heparin 25,000 units in dextrose 5% 500 mL infusion 350-7,000 Units/hr (rounded to 7-140 mL/hr), Intravenous, CONTINUOUS, Starting on Wed08/20/13 at 1515, Until Wed08/21/13 at 1525, Patient Weight 115-greater kg Initial dose - 1,000 units/hr = 20 mL/hr PTT less than 60 sec - increase by 450 units/hr = 9 mL/hr PTT 60-79 sec- increase by 250 units/hr = 5 mL/hr PTT 80-114 sec - no change PTT 115-129 sec - decrease by 100 units/hr = 2 mL/hr PTT 130-145 sec - stop infusion for 30 min then decrease by 250 units/hr = 5 mL/hr PTT greater than 145 sec - stop infusion for 60 min then decrease by 350 units/hr = 7 mL/hr PTT greater than 145 sec X 2 - call clubhouse attendant See Bolus dosing guidance for aPTT values less than 80 seconds under PRN medications, Routine New Bag 08/21/2013 5:52 AM EDT 2,150 Units/hr 43 mL/hr Rate/Dose Change 08/21/2013 5:42 AM EDT 2,150 Units/hr 43 mL/hr Rate/Dose Change 08/21/2013 12:32 AM EDT 1,900 Units/hr 38 mL/hr insulin aspart (NOVOLOG) PEN injection 2-8 Units 2-8 Units, Subcutaneous, 4 TIMES DAILY BEFORE MEALS & NIGHTLY, First dose on [place] 08/20/13 at 1630, Until Discontinued, CORRECTION BOLUS Moderate BG 140 - 160 Give 2 units BG 161 - 200 Give 4 units BG 201 - 240 Give 6 units BG greater than 240, give 8 units and recheck BG in 2 hours. If BG remains greater than 240, repeat 8 units (no more than three times) & call for new basal insulin orders. If less than 240 after two hours, give no insulin and resume prior schedule. , Routine Given 08/22/2013 12:08 PM EDT 6 Units Given 08/22/2013 8:57 AM EDT 4 Units Le ft Arm Given 08/21/2013 8:37 PM EDT 8 Units insulin aspart (NOVOLOG) VIAL injection 4 Units 4 Units, Subcutaneous, ONCE, On Wed08/21/13 at 0015, 1 dose Given 08/21/2013 12:13 AM EDT 4 Units insulin glargine (LANTUS) PEN injection 10 Units 10 Units, Subcutaneous, NIGHTLY, First dose on Wed08/21/13 at 2100, Until Discontinued, Routine Given 08/21/2013 8:47 PM EDT 10 Units metoprolol tartrate (LOPRESSOR) tablet 50 mg 50 mg, Oral, 2 TIMES DAILY, First dose on Wed08/20/13 at 2100, Until Discontinued, Routine Given 08/22/2013 8:58 AM EDT 50 mg Given 08/21/2013 8:37 PM EDT 50 mg Given 08/21/2013 8:58 AM EDT 50 mg nitroGLYcerin 50 mg in dextrose 5% 250 mL infusion 10 mcg/min (rounded to 3 mL/hr), Intravenous, CONTINUOUS, Starting on Wed08/20/13 at 1500, Until Wed08/21/13 at 1525, Maximum dose: 200 mcg/min, Routine New Bag 08/21/2013 11:52 AM EDT 50 mcg/min 15 mL/hr Rate/Dose Change 08/21/2013 2:16 AM EDT 50 mcg/min 15 mL/h r Rate/Dose Change 08/20/2013 8:17 PM EDT 40 mcg/min 12 mL/h r pantoprazole (PROTONIX) tablet 40 mg 40 mg, Oral, DAILY, First dose on Wed08/21/13 at 1815, Until Discontinued, Restricted to patients on clopidpgrel (PLAVIX) who require a proton pump inhibitor Given 08/22/2013 8:58 AM EDT 40 mg Given 08/21/2013 7:17 PM EDT 40 mg potassium chloride (K-DUR/KLOR-CON) extended release tablet 40 mEq 40 mEq, Oral, ONCE, 1 dose, On Wed08/22/13 at 0745, STAT Given 08/22/2013 8:58 AM EDT 40 mEq sertraline (ZOLOFT) tablet 50 mg 50 mg, Oral, DAILY, First dose on Wed08/20/13 at 1700, Until Discontinued, Routine Given 08/22/2013 8:5 9 AM EDT 50 mg Given 08/21/2013 9:00 AM EDT 50 mg Given 08/20/2013 6:37 PM EDT 50 mg simvastatin (ZOCOR) tablet 20 mg 20 mg, Oral, EVERY EVENING, First dose on Wed08/20/13 at 1700, Until Discontinued Given 08/21/2013 5:11 PM EDT 20 mg Given 08/20/2013 6:37 PM EDT 20 mg sodium chloride 0.9 % flush 5 mL 5 mL, Intravenous, EVERY 12 HOURS, First dose on [place] 08/20/13 at 1545, Until Discontinued Given 08/20/2013 3:30 PM EDT 5 mLs sodium chloride 0.9 % flush 5 mL 5 mL, Intravenous, EVERY 12 HOURS, First dose on [place] 08/20/13 at 1545, Until Discontinued, Routine Given 08/21/2013 3:45 PM EDT 5 mLs Given 08/20/2013 3:30 PM EDT 5 mLs sodium chloride 0.9 % flush 5 mL 5 mL, Intravenous, EVERY 12 HOURS, First dose on Wed08/21/13 at 0200, Until Discontinued, Cath (Day of Procedure), Routine Given 08/22/2013 2:00 AM EDT 5 mLs Given 08/21/2013 1:44 AM EDT 5 mLs sodium chloride 0.9 % flush 5 mL 5 mL, Intravenous, EVERY 12 HOURS, First dose on Wed08/21/13 at 0015, Until Discontinued, Cath (Day of Procedure), Routine Given 08/21/2013 12:15 AM EDT 5 mLs sodium chloride 0.9% infusion 1,000 mL, at 100 mL/hr, Intravenous, CONTINUOUS, Starting on 08/20/13 at 1545, Until Wed08/21/13 at 1441 New Bag 08/20/2013 3:56 PM EDT 1,000 mLs 100 mL/hr sodium chloride 0.9% infusion 100 mL/hr, Intravenous, CONTINUOUS, Starting on Wed08/21/13 at 0200, Until Wed08/21/13 at 1742, Cath (Day of Procedure) Rate/Dose Change 08/21/2013 10:50 AM EDT 100 mL/hr 100 mL/hr New Bag 08/21/2013 9:06 AM EDT 200 mL/hr 200 mL/hr New Bag 08/21/2013 1:55 AM EDT 200 mL/hr 200 mL/hr sodium chloride 0.9% infusion 100 mL/hr, Intravenous, CONTINUOUS, Starting on Wed08/21/13 at 1500, Until Wed08/22/13 at 0059 New Bag 08/21/2013 3:00 PM EDT 100 mL/hr 100 mL/hr Left Arm venlafaxine (EFFEXOR-XR) XR Capsule 225 mg 225 mg, Oral, DAILY WITH BREAKFAST, First dose on Wed08/21/13 at 0800, Until Discontinued, Routine Given 08/22/2013 8:59 AM EDT 225 mg Given 08/21/2013 9:00 AM EDT 225 mg documented in this encounter Active and Recently Administered Medications Times are shown in EDT. Scheduled Medication Order 08/20/2013 08/21/2013 08/22/2013 aspirin chewable tablet 81 mg (CANCELED) 81 mg, Oral, DAILY, First dose on Wed08/20/13 at 1545, Until Discontinued, Routine 1545 (Not Given - Provider: Sana Bella RN - Reason: See comment - Comment: given at [facility]) 0900 (Given - Provider: Lola Tipton RN) aspirin EC tablet 81 mg 81 mg, Oral, DAILY, First dose on Wed08/22/13 at 0900, Until Discontinued, Routine 0857 (Given - Provid er: Roxanna Mcallister) clopidogrel (PLAVIX) tablet 75 mg 75 mg, Oral, DAILY, First dose on Wed08/22/13 at 0900, Until Discontinued, Routine 0857 (Given - Provid er: Roxanna Mcallister) diaZEPam (VALIUM) tablet 5 mg (COMPLETED) 5 mg, Oral, ONCE, 1 dose, On Wed08/21/13 at 1215, Cath (Day of Procedure), Routine 1201 (Given - Provider: Lola Tipton, DAVID) diphenhydrAMINE (BENADRYL) capsule 25 mg (COMPLETED) 25 mg, Oral, ONCE, 1 dose, On Wed08/21/13 at 1215, Cath (Day of Procedure), Routine 1200 (Given - Provider: Lola Tipton, DAVID) famotidine (PEPCID) tablet 20 mg (CANCELED) 20 mg, Oral, 2 TIMES DAILY, First dose on Wed08/20/13 at 2100, Until Discontinued, Routine 2015 (Given - Provider: Reny Kent RN) 0858 (Given - Provider: Lola Tipton RN) glimepiride (AMARYL) tablet 2 mg 2 mg, Oral, DAILY AFTER BREAKFAST AND DINNER, First dose on Wed08/22/13 at 1800, Until Discontinued, Routine insulin aspart (NOVOLOG) PEN injection 2-8 Units (CANCELED) 2-8 Units, Subcutaneous, 4 TIMES DAILY BEFORE MEALS & NIGHTLY, First dose on Wed08/20/13 at 1630, Until Discontinued, CORRECTION BOLUS Moderate BG 140 - 160 Give 2 units BG 161 - 200 Give 4 units BG 201 - 240 Give 6 units BG greater than 240, give 8 units and recheck BG in 2 hours. If BG remains greater than 240, repeat 8 units (no more than three times) & call for new basal insulin orders. If less than 240 after two hours, give no insulin and resume prior schedule. , Routine 1836 (Given - Provider: Sana Bella RN)2021 (Given - Provider: Reny Kent RN) 0838 (Given - Provider: Lola Tipton, DAVID - Comment: pt was having echo)1203 (Given - Provider: Lola Tipton, DAVID)162 (Not Given - Provider: Lola Tipton RN - Reason: Order parameters not met)2036 (Given - Provider: Allen Tavarez RN) 0857 (Given - Provider: Roxanna Mcallister)1208 (Given - Provider: Sangita Espinoza RN) insulin aspart (NOVOLOG) VIAL injection 4 Units (COMPLETED) 4 Units, Subcutaneous, ONCE, On Wed08/21/13 at 0015, 1 dose 0013 (Given - Provider: Reny Kent RN) insulin glargine (LANTUS) PEN injection 10 Units 10 Units, Subcutaneous, NIGHTLY, First dose on Wed08/21/13 at 2100, Until Discontinued, Routine 2046 (Given - Provider: Allen Tavarez, DAVID) metFORMIN (GLUCOPHAGE) tablet 500 mg 500 mg, Oral, DAILY WITH BREAKFAST, First dose on Wed08/23/13 at 0800, Until Discontinued, Routine metoprolol tartrate (LOPRESSOR) tablet 50 mg (CANCELED) 50 mg, Oral, 2 TIMES DAILY, First dose on Wed08/20/13 at 2100, Until Discontinued, Routine 2016 (Given - Provider: Reny Kent RN) 0858 (Given - Provider: Lola Tipton, DAVID)2036 (Given - Provider: Allen Tavarez, DAVID) 0858 (Given - Provider: Roxanna Mcallister) pantoprazole (PROTONIX) tablet 40 mg 40 mg, Oral, DAILY, First dose on Wed08/21/13 at 1815, Until Discontinued, Restricted to patients on clopidpgrel (PLAVIX) who require a proton pump inhibitor 1916 (Given - Provider: Lola Tipton RN) 0858 (Given - Provider: Roxanna Mcallister) potassium chloride (K-DUR/KLOR-CON) extended release tablet 40 mEq (COMPLETED) 40 mEq, Oral, ONCE, 1 dose, On Wed08/22/13 at 0745, STAT 0858 (Given - Provid er: Roxanna Mcallister) sertraline (ZOLOFT) tablet 50 mg (CANCELED) 50 mg, Oral, DAILY, First dose on Wed08/20/13 at 1700, Until Discontinued, Routine 1836 (Given - Provider: Sana Bella, DAVID) 0900 (Given - Provider: Lola Tipton RN) 0859 (Given - Provider: Roxanna Mcallister) simvastatin (ZOCOR) tablet 20 mg (CANCELED) 20 mg, Oral, EVERY EVENING, First dose on Wed08/20/13 at 1700, Until Discontinued 1836 (Given - Provider: Sana Bella RN) 1711 (Given - Provider: Lola Tipton RN) sodium chloride 0.9 % flush 5 mL (CANCELED) 5 mL, Intravenous, EVERY 12 HOURS, First dose on 08/20/13 at 1545, Until Discontinued 1530 (Given - Provider: Sana Bella RN) 0345 (Not Given - Provider: Reny Kent RN - Reason: See comment - Comment: Infusing) sodium chloride 0.9 % flush 5 mL (CANCELED) 5 mL, Intravenous, EVERY 12 HOURS, First dose on 08/20/13 at 1545, Until Discontinued, Routine 1530 (Given - Provider: Sana Bella RN) 0345 (Not Given - Provider: Reny Kent RN - Reason: See comment - Comment: Infusing)1545 (Given - Provider: Lola Tipton RN) 0345 (Not Given - Provider: Allen Tavarez RN - Reason: Contraindicated - Comment: previously flushed) sodium chloride 0.9 % flush 5 mL (CANCELED) 5 mL, Intravenous, EVERY 12 HOURS, First dose on Wed08/21/13 at 0200, Until Discontinued, Cath (Day of Procedure), Routine 0144 (Given - Provider: Reny Kent RN)1400 (Not Given - Provider: Lola Tipton RN - Reason: Patient not available) 0200 (Given - Provider: Allen Tavarez RN)1400 (Due) sodium chloride 0.9 % flush 5 mL (CANCELED) 5 mL, Intravenous, EVERY 12 HOURS, First dose on Wed08/21/13 at 0015, Until Discontinued, Cath (Day of Procedure), Routine 0015 (Given - Provider: Reny Kent RN)1215 (Not Given - Provider: Lola Tipton RN - Reason: Patient not available) venlafaxine (EFFEXOR-XR) XR Capsule 225 mg (CANCELED) 225 mg, Oral, DAILY WITH BREAKFAST, First dose on Wed08/21/13 at 0800, Until Discontinued, Routine 0900 (Given - Provider: Lola Tipton RN) 0859 (Given - Provider: Maneeya B Tonyai) Continuous Medication Order 08/20/2013 08/21/2013 08/22/2013 heparin 25,000 units in dextrose 5% 500 mL infusion (CANCELED) 350-7,000 Units/hr (rounded to 7-140 mL/hr), Intravenous, CONTINUOUS, Starting on Wed08/20/13 at 1515, Until Wed08/21/13 at 1525, Patient Weight 115-greater kg Initial dose - 1,000 units/hr = 20 mL/hr PTT less than 60 sec - increase by 450 units/hr = 9 mL/hr PTT 60-79 sec- increase by 250 units/hr = 5 mL/hr PTT 80-114 sec - no change PTT 115-129 sec - decrease by 100 units/hr = 2 mL/hr PTT 130-145 sec - stop infusion for 30 min then decrease by 250 units/hr = 5 mL/hr PTT greater than 145 sec - stop infusion for 60 min then decrease by 350 units/hr = 7 mL/hr PTT greater than 145 sec X 2 - call clubhouse attendant See Bolus dosing guidance for aPTT values less than 80 seconds under PRN medications, Routine 1330 (New Bag - Provider: Sana Bella RN)1841 (Rate/Dose Change - Provider: Sana Bella RN) 0032 (Rate/Dose Change - Provider: Reny Kent RN)0542 (Rate/Dose Change - Provider: Reny Kent RN)0552 (New Bag - Provider: Reny Kent RN)1230 (Stopped - Provider: Lola Tipton, DAVID) nitroGLYcerin 50 mg in dextrose 5% 250 mL infusion (CANCELED) 10 mcg/min (rounded to 3 mL/hr), Intravenous, CONTINUOUS, Starting on Wed08/20/13 at 1500, Until Wed08/21/13 at 1525, Maximum dose: 200 mcg/min, Routine 1500 (New Bag - Provider: Michelle Chong RN)1844 (Rate/Dose Change - Provider: Sana Bella RN)2017 (Rate/Dose Change - Provider: Reny Kent RN) 0216 (Rate/Dose Change - Provider: Reny Kent RN)1152 (New Bag - Provider: Lola Tipton RN)1319 (Stopped - Provider: Evy Sánchez RN) sodium chloride 0.9% infusion (CANCELED) 1,000 mL, at 100 mL/hr, Intravenous, CONTINUOUS, Starting on Wed08/20/13 at 1545, Until Wed08/21/13 at 1441 1556 (New Bag - Provider: Sana Bella RN)2155 (Stopped - Provider: Reny Kent RN - Comment: stop per Dr. Golden) 1000 (Canceled Entry - Provider: Lola Tipton RN)1050 (Canceled Entry - Provider: Lola Tipton RN) sodium chloride 0.9% infusion (CANCELED) 100 mL/hr, Intravenous, CONTINUOUS, Starting on Wed08/21/13 at 0200, Until Wed08/21/13 at 1742, Cath (Day of Procedure) 0155 (New Bag - Provider: Reny Kent RN)0906 (New Bag - Provider: Lola Tipton RN)1050 (Rate/Dose Change - Provider: Lola Tipton RN)1506 (Stopped - Provider: Aisha Antoine RN - Comment: 100 ml infused, 900 ml remain in bag, off, in standby position in stopcock system) sodium chloride 0.9% infusion 100 mL/hr, Intravenous, CONTINUOUS, Starting on Wed08/21/13 at 1500, Until Wed08/22/13 at 0059 1500 (New Bag - Provider: Aisha Antoine RN - Comment: for 10 hours, 1000ml total) PRN Medication Order 08/20/2013 08/21/2013 08/22/2013 acetaminophen (TYLENOL) tablet 1,000 mg (CANCELED) 1,000 mg, Oral, EVERY 6 HOURS PRN, Starting on Wed08/20/13 at 1528, Until Wed08/22/13 at 1741, Pain, Maximum dose of acetaminophen is 4000 mg from all sources in 24 hours., Routine 0217 (Given - Provider: Reny Kent RN) bivalirudin (ANGIOMAX) 250 mg in sodium chloride 0.9% 50 mL infusion (RESIDENT PROGRAM SPECIALIST) (CANCELED) CONTINUOUS PRN, Starting on Wed08/21/13 at 1345, Until Wed08/21/13 at 1438, Cath (Intra-Procedure), Routine 1345 (New Bag - Provider: Fredrick Villegas RN)1427 (Stopped - Provider: Evy Sánchez RN) bivalirudin (ANGIOMAX) injection (CANCELED) ONCE PRN, Starting on Wed08/21/13 at 1345, Until Wed08/21/13 at 1438, Intra-Operative (Intra-Procedure), Routine 1345 (Given - Provider: Fredrick Villegas RN) clopidogrel (PLAVIX) tablet (CANCELED) ONCE PRN, Starting on Wed08/21/13 at 1348, Until Wed08/21/13 at 1438, Intra-Operative (Intra-Procedure), Routine 1348 (Given - Provider: Angel Finley RN) fentaNYL 50mcg/mL injection (CANCELED) ONCE PRN, Starting on Wed08/21/13 at 1347, Until Wed08/21/13 at 1438, Pain, Intra-Operative (Intra-Procedure), Routine 1347 (Given - Provider: Angel Finley RN)1412 (Given - Provider: Fredrick Villegas RN) flu vaccine (36 mos+) (PF) (FLUZONE) 45 mcg/0.5 mL IM injection 0.5 mL (COMPLETED) 0.5 mL, Intramuscular, PRIOR TO DISCHARGE, 1 dose, Starting on Wed08/20/13 at 1800, Until Wed08/22/13 at 1216, Per Protocol, Routine 1216 (Given - Provid er: Sangita Espinoza RN) heparin (porcine) injection 2,000-4,000 Units (CANCELED) 2,000-4,000 Units, Intravenous, BOLUS PER HEPARIN PROTOCOL, Starting on Wed08/20/13 at 1446, Until Wed08/21/13 at 1525, Per Protocol, Adjust to dosing chart, Patient Weight 115-greater kg PTT less than 60 seconds - 4,000 units PTT 60-79 seconds - 2,000 units PTT 80-114 seconds - no bolus , Routine 0033 (Given - Provider: Reny Kent RN) lidocaine (XYLOCAINE) 10 mg/mL (1 %) injection (CANCELED) ONCE PRN, Starting on Wed08/21/13 at 1313, Until Wed08/21/13 at 1438, Cath (Intra-Procedure), Routine 1313 (Given - Provider: Tim Uribe - Comment: Right groin for access) nitroGLYcerin (NITROSTAT) SL tablet 0.4 mg 0.4 mg, Sublingual, DAILY PRN, Starting on Wed08/21/13 at 1440, Until Wed08/22/13 at 1741, Chest pain, May repeat every 5 minutes for a total of three doses., Routine documented in this encounter Care Teams Tiedown Operator Relationship Specialty Start Date End Date Patric Al MD PCP - General 12/29/11 02/26/19 documented as of this encounter
--- OUTSIDE RECORDS SUMMARY | 2024-07-14 14:35 | XMS_ITS | Encounter Summary ---
Author Organization [facility] Address [facility] [place] [address] Care Team Providers Care Radiographer Cardiac Catheterization Name Role Phone None Primary Care Provider Unavailabl e Encounter Details Date Type Department Care Team (Late st Contact Info) Description 05/28/2024 11:55 AM EDT Ancillary Procedure [place] [address] Jerry Marin MD [facility] [place] [address] Social History Tobacco Use Types Packs/Day Years Used Date Smoking Tobacco: Every Day Cigarettes 1 25 Started: 12/28/1986; Last attempted to quit: 12/28/2011 Alcohol Use Standard Drinks/Week Comments No 0 (1 standard drink = 0.6 oz pur e alcohol) [facility] Utilities Answer Date Recorded In the past 12 months has [facility] [place], gas, oil, or water [employer] threatened to shut off services in your [...] any time in the past 12 m [facility], were you homeless or living in a fdc (including now)? No 05/29/2024 IPV Inpatient Questions [...] Procedure Name Priority Date/Time Associated Diagnosis Comments FILM LIBRARY STORAGE ONLY CT ABDOMEN AND PELVIS Routine 05/28/2024 11:50 AM EDT documented in this encounter Results * Film Library- Storage Only CT Abdomen & Pelvis (05/28/2024 11:50 AM EDT) Narrative RAD - 05/28/2024 11:50 AM EDT This exam is auto-finalizing. It's purpose is for storage only. Jerry Marin MD IMG FILM LIBRARY ORD ERABLES [place]ICK[place], [place] documented in this encounter Visit Diagnoses Not on filedocumented in this encounter Care Teams Radiographer Cardiac Catheterization Relationship Specialty Start Date End Date None None PCP - General 05/27/24 documented as of this encounter
--- OUTSIDE RECORDS SUMMARY | 2024-07-14 14:35 | XMS_ITS | Encounter Summary ---
Author Organization [facility] Address [facility] [place] [address] Care Team Providers Care Oil Expeller Operator Name Role Phone Guanako Gusman MD Primary Care Provider [phone] Reason for Visit * Reason Onset Date Comments Medication Refill 08/25/2013 Encounter Details Date Type Department Care Team (Late st Contact Info) Description 08/25/2013 Refill Cardiology at [address] [address] Sarthak Pollard MD [facility] [place] [address] Medication Refill Social History Tobacco Use Types [...] on file documented as of this encounter Miscellaneous Notes * Telephone Encounter - Anay Berry RN - 08/25/2013 10:59 AM EDT Insurance will not cover or PA Protonix. Dexilant is covered on his plan. Per Jaye REDDY to change to Dexilant, called in 30mg daily. documented in this encounter Plan of Treatment Not on file documented as of this encounter Visit Diagnoses Diagnosis CAD (coronary artery disease)- Primary Coronary atherosclerosis of unspecified type of vessel, ak chin or graft documented in this encounter Care Teams Oil Expeller Operator Relationship Specialty Start Date End Date Guanako Gusman MD PCP - General 12/29/11 02/26/19 documented as of this encounter
--- OUTSIDE RECORDS SUMMARY | 2024-07-14 14:35 | XMS_ITS | Encounter Summary ---
Author Organization [facility] Address [facility] [place] [address] Care Team Providers Care Contact Lens Fitter Name Role Phone None Primary Care Provider Unavailabl e Encounter Details Date Type Department Care Team (Late st Contact Info) Description 05/28/2024 Tele[place] [phone] [facility] [place] [address] Social History Tobacco Use Types Packs/Day Years Used Date Smoking Tobacco: Every Day Cigarettes 1 25 Started: 12/28/1986; Last attempted to quit: 12/28/2011 Alcohol Use Standard Drinks/Week Comments No 0 (1 standard drink = 0.6 oz pur e alcohol) [facility] Utilities Answer Date Recorded In the past 12 months has e electric, gas, oil, or water company [...] any time in the past 12 m [facility], were you homeless or living in a penitentiary (including now)? No 05/29/2024 IPV Inpatient Questions [...] encounter Miscellaneous Notes * Telephone Encounter - Dolly Dan MD - 05/28/2024 4:28 PM EDT I received a call from [facility] regarding Lux Dixon. This is a 49-year-old male with history of substance abuse who presented to the ED with left calf pain. Per report, he does not have any pain in hisfoot. The outside hospital provider was unable to find a DP signal, and was only able to find a weak PT signal. The patient underwent a CTA which showed a short segment popliteal occlusion with reconstitution distally. He is motor and sensory intact. The patient will be transferred to [facility] ED for further evaluation and determine whether his symptoms are related to vascular disease. documented in this encounter Plan of Treatment Not on file documented as of this encounter Visit Diagnoses Not on filedocumented in this encounter Care Teams Contact Lens Fitter Relationship Specialty Start Date End Date None None PCP - General 05/27/24 documented as of this encounter
--- OUTSIDE RECORDS SUMMARY | 2024-07-14 14:35 | XMS_ITS | Encounter Summary ---
Author Organization [facility] Address [facility] [place] [address] Care Team Providers Care Sales Agent Fire Insurance Name Role Phone None Primary Care Provider Unavailabl e Encounter Details Date Type Department Care Team (Latest Contact Info) Description 05/28/2024 Travel Social History Tobacco Use Types Packs/Day Years Used Date Smoking Tobacco: Every Day Cigarettes 1 25 Started: 12/28/1986; Last attempted to quit: 12/28/2011 Alcohol Use Standard Drinks/Week Comments No 0 (1 standard drink = 0.6 oz pur e alcohol) [facility] Utilities Answer Date Recorded In the [...] any time in the past 12 m [facility], were you homeless or living in a correction (including now)? No 05/29/2024 DH IPV Inpatient [...] on filedocumented in this encounter Care Teams Sales Agent Fire Insurance Relationship Specialty Start Date End Date None None PCP - General 05/27/24 documented as of this encounter
--- OUTSIDE RECORDS SUMMARY | 2024-07-14 14:36 | XMS_ITS | Encounter Summary ---
Author Organization [facility] Address [facility] [place] [address] Care Team Providers Care Equipment Operation Instructor Name Role Phone Patric Al MD Primary Care Provider [phone] Reason for Visit * Reason Onset Date Comments Medication Refill 01/11/2012 Encounter Details Date Type Department Care Team (Late st Contact Info) Description 01/11/2012 Refill [place] [address] Zak Yoo III, PA [facility] [place] [address] Social History Tobacco Use Types Packs/Day Years Used Date Smoking Tobacco: Every Day Cigarettes 1 25 Alcohol Use Standard Drinks/Week Comments No 0 (1 standard drink = 0.6 oz pur e alcohol) Sex and Gender Information Value Date Recorded Sex Assigned at Not on file Gender Identity Not on file Sexual Orientation Not on file documented as of this encounter Miscellaneous Notes * Telephone Encounter - Zak Yoo III, PA - 01/11/2012 4:59 PM EST TELEPHONE NOTE [id number] y.o. Date of call: 01/11/2012CABG X 2 (MARTINEZ to LAD and SVG to PDA), endoscopic vein harvesting from the right leg, and intraoperative HELEN 01/04/12. Time of call: 1045 and 1647 Caller: Patient Reason for call: Pain medication refill. Discharged 01/08/12 after uncomplicated stay. Mr. Dixon had significant postoperative pain. He was discharged with # 100 Dilaudid 2 mg 1-3 tablets every three hours along with Tylenol 1000 mg every 6hours ATC. He called today stating that he was nearly out of the medications with only about 20 pills left. Herequested a refill prior to running out since he was still having sternal pain of 4-5/10 worse at night and with exertion. He does state that the pills do help. Otherwise he indicates that he is doing well. Lux Dixon Jr. Home Medication Instructions CRAIG: Printed on:01/11/12 2178 Medication Information HYDROmorphone (DILAUDID) 4 mg tablet Take 1 tablet by mouth every 6 hours as needed for Pain. acetaminophen (TYLENOL) 500 mg tablet Take 2 tablets by mouth every 6 hours as needed for Pain. aspirin 81 mg chewable tablet Take 81 mg by mouth daily. metFORMIN (GLUCOPHAGE) 500 mg tablet Take 1 tablet by mouth daily. metoprolol tartrate (LOPRESSOR) 25 mg tablet Take 1 tablet by mouth 2 times daily. potassium chloride (K-DUR) 10 mEq tablet Take 2 tablets by mouth daily. senna-docusate (PERICOLACE) 8.6-50 mg per tablet Take 2 tablets by mouth daily as needed for Constipation. furosemide (LASIX) 20 mg tablet Take 1 tablet by mouth daily. simvastatin (ZOCOR) 20 mg tablet Take 20 mg by mouth nightly. sertraline (ZOLOFT) 50 mg tablet Take 50 mg by mouth daily. omeprazole (PRILOSEC) 20 mg capsule Take 40 mg by mouth daily. protriptyline (VIVACTIL) 5 mg tablet Take 10 mg by mouth every 8 hours. venlafaxine (EFFEXOR) 75 mg tablet Take 75 mg by mouth daily. No Known Allergies Assessment: 01/11/2012CABG X 2 (MARTINEZ to LAD and SVG to PDA), endoscopic vein harvesting from the right leg, and intraoperative HELEN 01/04/12. Significant postoperative pain requesting refill. Plan/Instructions: DW patient the need to take Tylenol 1000 mg every 6 hours ATC. Will give one limited refill of 4 mg Dilaudid tablets # 100 with instructions to take one tablet every 6 hours for severe pain. The patient was explicitly instructed not to take any more pills that prescribed, not to take any other sedating medications, and not to drink any alcohol while taking these medications. The script will be mailed to him as he has 20 pills left. He was advised that he may have to be evaluated if significant sternal pain continues. He indicated that he understood all instructions. DW Dr. Major-Attending available. Dr. Morales will be updated today. Signed: ZAK YOO III, PA-C [facility] Section of Cardiothoracic Surgery Date: 01/11/12 PATRIC AL MD documented in this encounter Plan of Treatment Not on file documented as of this encounter Visit Diagnoses Not on filedocumented in this encounter Care Teams Equipment Operation Instructor Relationship Specialty Start Date End Date Patric Al MD PCP - General 12/29/11 02/26/19 documented as of this encounter
--- OUTSIDE RECORDS SUMMARY | 2024-07-14 14:36 | XMS_ITS | Encounter Summary ---
Author Organization [facility] Address [facility] [place] [address] Care Team Providers Care Swatcher Name Role Phone Patric Al MD Primary Care Provider Encounter Details Date Type Department Care Team (Late st Contact Info) Description 08/21/2013 11:35 AM EDT - 08/21/2013 12:35 PM EDT Surgery Senior Telecommunications [place] [id number] Sarthak Kahn MD [facility] [place] [address] CARDIAC CATHETERIZATION Social History Tobacco Use Types Packs/Day Years [...] Sign Reading Time Taken Comments Blood Pressure 118/59 08/21/2013 11:36 AM EDT Pulse 71 08/21/2013 11:36 AM EDT Temperature 37 ??C (98.6 ??F) 08/21/2013 11: 36 AM EDT Respiratory Rate 18 08/21/2013 11:3 6 AM EDT Oxygen Saturation 99% 08/21/2013 11: 36 AM EDT Inhaled Oxygen Concentration - - Weight 128.2 kg (282 lb 10.1 oz) 08/21/2013 6:00 AM EDT Height 180.3 cm (5' 11) [...] appointments: -During 8am-5pm Wednesday through Wednesday call [phone] to speak with a nurse in the cardiology clinic -All other times call [phone] and ask to speak to the rotary engraver installation engineer. Return to work/ usual actvities: 1 week, as tolerated. No squatting or lifting more than 10 pounds until then. Driving: No driving for 48 hours after catheterization. Follow up Appointments: PCP: PATRIC AL MD at [phone] to see you on WednesdayAugust 28 at 10:50 am. Supervisor [employer], Dr. Oseguera, to see you on 09/20/14 at noon. Please call [phone] with questions. Diabetes medication instructions You should [...] * CHEST PAIN (ANGINA): AFTER YOUR VISIT (BANGLADESHI) * CORONARY ARTERY DISEASE: AFTER YOUR VISIT (BANGLADESHI) * DIABETES DIET GUIDELINES: AFTER YOUR VISIT (BANGLADESHI) * HEART ATTACK: AFTER YOUR VISIT (BANGLADESHI) * HEMOGLOBIN A1C: ABOUT THIS TEST (BANGLADESHI) * HOME BLOOD GLUCOSE TEST: ABOUT THIS TEST (BANGLADESHI) * CARDIAC CATHETERIZATION: AFTER YOUR VISIT (BANGLADESHI) documented in this encounter Medications at Time [...] Patient is a 38 y/o man from [place], [place]. He is disabled and on Social Security Disability ands Medicare. Patient thought he had [place] Medicaid [...] Office of Care Management (OCM) / Clinical Director Radio (CRC)/ Initial Assessment Discussed patient with Provider [...] to drive with medication. 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 CURRENT FUNCTIONAL STATUS: same SOCIAL / FAMILY [...] he has Medicare D for prescriptions. Uses [facility] in [facility] CURRENT HOME/COMMUNITY SERVICES/EQUIPMENT: None KITCHEN HAND REFERRAL: Notified KITCHEN HAND, Alexandru Casas regarding pt's [place] Medicaid. Pt's [place] Medicaid is not active per Alexandru SALCEDO. PRIMARY CARE PHYSICIAN: PATRIC AL MD ALEJANDRA [phone] [facility] [id number] POTENTIAL DISCHARGE NEEDS: None identified at this [...] while hospitalized. Awaiting Endocrine consult. Calista Jaimes GLASS WASHER CRC/Jaye Dennison MSN BSN RN CRC Office of Care Managment Pager [phone] . * Padma Marquez I, RD - 08/22/2013 11:42 AM EDT Nutrition Services Education Note Diet Rx: [facility] Fat Patient Active Problem List Diagnosis Code [...] Weight loss options discussed Phase II Referral: [facility] Activity Summary: By discharge, patient will be [...] up with PCP or Dr Bird in [place] I reviewed the patient with and agree with the recommendations and plans * Sarthak Pollard MD - 08/22/2013 7:18 AM EDT Inpatient Cardiology Progress Note Patient Name: Lux Dixon Jr. Service: AGRICULTURAL EQUIPMENT OPERATOR / PA Responsible Attending: Dr Pollard Reason for continued hospitalization: Evaluation and management of NSTEMI S/p cardiac catheterization, PCI of LCX, being seen by Cardiac Rehabilitation [facility] 10, Endocrine consulted Active Problems: Active [...] and intact Lab Comments: Recent Labs Basename 08/22/13 0403 08/21/13 0353 08/20/13 1345 WBC 10.0 12.9* 12.2* HGB 12.7* 13.0* 14.7 HCT 37.7* 37.9* 42.3 PLATELET 201 198 247 Recent Labs Basename 08/21/13 0353 INR 1.0 Recent Labs Basename 08/22/13 0403 08/21/13 0353 08/20/13 1345 NA 137 135 138 K 3.7 3.5 4.1 CL 102 101 102 CO2 25 22 22 BUN 6* 15 15 CREATININE 0.62* 0.67* 0.68* Recent Labs Basename 08/22/13 0403 08/21/13 0353 08/20/13 1345 CALCIUM 8.8 8.7 9.3 MAGNESIUM -- [...] 2v CABG and recurrent angina, +NSTEMI pending [facility]. Stable. Plan: 1. CAD/ CABGx2, stable [...] discussed with Dr. Pollard. JUSTIN OROSCO Pager [phone] 08/22/2013 Cardiology Attending Note: I interviewed and [...] as oral agents. He lives in the [facility]. We will set him up to see Dr. Reji Lucia or one of his colleagues. Time spent at bedside and coordinating care: 35 mins. Sarthak Pollard MD, MS Staff Supervisor [employer] Pager [phone] * Latonya Sanders - 08/21/2013 10:28 PM [...] pulses are palpable. Latonya Sanders MD # [id number] * Sarthak Pollard MD - 08/21/2013 8:36 AM EDT Inpatient Cardiology Progress Note Patient Name: Lux Dixon Jr. Service: AGRICULTURAL EQUIPMENT OPERATOR / PA Responsible Attending: Dr Pollard Reason for continued hospitalization: Evaluation and management of NSTEMI Active Problems: Active Hospital Problems Diagnosis ??? Coronary artery disease Priority: High NSTEMI 12-29-2011 Cath - LAD, PDA and Distal Circ Disease CABG 01-04-2012 (MARTINEZ-LAD, SVG-PDA) ??? TR (tricuspid regurgitation), mild Mild IA ??? CAD (coronary artery disease) 2009 , v CABG (MARTINEZ-LAD, SVG-PDA) ??? ACS (acute [...] ??? sodium chloride 0.9% 200 mL/hr (08/21/13 09) ??? nitroGLYcerin 50 mcg/min (08/21/13215) ??? heparin 2,150 Units/hr (08/21/13 0521) ??? sodium chloride 0.9% Stopped (08/20/13 5715) Physical Exam: Vital Signs: Last value Range [...] abnormal Lab Comments: Recent Labs Basename 08/21/13 0353 08/20/13 1345 WBC 12.9* 12.2* HGB 13.0* 14.7 HCT 37.9* 42.3 PLATELET 198 247 Recent Labs Basename 08/21/13 0353 INR 1.0 Recent Labs Basename 08/21/13 0353 [...] isolated Q in III Assessment: Lux Dixon JrFlorencio is a 38 y.o. male with CAD/ 2v CABG and recurrent angina, +NSTEMI pending [facility]. Plan: 1. CAD/ CABGx2, [facility] today Needs risk factors addressed Has [...] Effexor / Zoloft for history of depression MILI TURCIOS, JUSTIN [phone] 08/21/2013 Cardiology Attending Note: I interviewed and examined the patient with the inpatient team and agree with the principal findings. I participated in the formulation of the assessment and plan and answered all the patient's questions. Angiography revealed occlusion of his SVG to his RPDA and occlusion of his kasaan RCA since that time of his last [...] bedside and coordinating care: 35 mins. Sarthak Pollrad MD, MS Staff Supervisor [employer] Pager [phone] * Mili Kent RN - 08/20/2013 10:08 PM EDT 2006) On initial shift assessment, patient complaining of [...] notifiedto call RN if pain increases again. 2299) Per pre cath orders there are multiple orders for Normal saline to infuse. One states 75ml/hr and the other states for 200ml/hr to be started at midnight. Dr. Golden states to release the one for 200ml/hr anywhere between 00 and 0200. 0310) Patient alerted staff software engineer that he is experiencing 3/10 left arm pain and a headache. [B/P 151/59]. Dr. Golden states to increase nitroglycerin gtt to 50mcg/min. Continue to monitor patient comfort. * Michelle Chong RN - 08/20/2013 3:00 PM EDT Complaining of 30/10 Chest Pain Radiating To Left arm Nitro Gtt Started Per 106/60 hr 69 nitro Stated At 20mcg 1515 pain Level is 11/17 118/58 65 ekg ordered documented in this encounter H&P Notes * Eben Bingham MD - 08/20/2013 3:12 PM EDT Cardiology Admission H & P Patient Name: Lux Dixon Jr. MRN No - [id number] Date of - 1975 Age - 38 [...] CABG MARTINEZ-LAD, SVG-PDA and Obesity transferred from [facility] because of CP which started yesterday while he was driving. He drove for 6 hrs yesterday and this started while he was doing it. The pain initially in left arm and than came to chest and it was dull aching type, , no aggravating and relieved afetr leaning forward and sitting upright. The pain was coming and going and relieved after 1 shot of morphine at [place]. His work showed NSR ECG w/o ST changes, elevated 2nd set of trop and negative D-dimer, wbc of 15K, normal electrolytes, glucose of 546, normal BUN/cr. He was [id number] of plavix and started on heparin gtt. He had some CP on arrival to [facility] which was . ECG was normal. Dr. Horvath suggested to [...] FOR CABG performed by INNA TOVAR at [facility] MAIN OR ??? Cabg, artery-vein, single 01/04/2012 @CABG, VENOUS & ARTERIAL GRAFT;SINGLE VEIN GRAFT performed by INNA TOVAR at [facility] MAIN OR Family History: Family History Problem [...] CABG MARTINEZ-LAD, SVG-PDA in 2011 transferred from [place] because of CP which is different than his previous episode of CP. This time pain started in arm and radiating to chest and is also mild 1-3 /10. He also drove for 6 hrs yesterday. He had positive tropsat [place] although his ECG was negative. The pain relieved after leaning forward. I have above mentioned DD and also his d-dimer at [place] was negative so low prob of PE. I would admit for ACS and cont heparin. i would also keep him NPO and starting on nitro drip per Dr. Horvath's rec. Admit to telemetry Cycle bio-markers Repeat EKG Continue aspirin, simvastatin, metoprolol, plavix 300 mg x1 (given at [place]) and heparin Check fasting lipid profile and [...] was reviewed and signed. 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 Diabetes History: Lux Dixon Jr. [...] of SVG to RPDA and occlusion of kasaan RCA. LVEDP 21. PCI of mid and [...] up with PCP or Dr Bird in [place] ??? Obesity Weight is 130.5 Kg [...] SVG-PDA in 2011 and obesity transferred from [facility] for chest pain which started the day [...] or vomiting. Hospital Course: On admission to [facility], he had CP on arrival to [facility] which was 1-3/10. ECG was normal. He was started on [...] occlusion of SVG to RPDA, occlusion of kasaan RCA. The SVG to RCA was not [...] up with PCP or Dr Bird in [place] Smoking cessation was advised & discussed. [...] appointments: -During 8am-5pm Wednesday through Wednesday call [phone] to speak with a nurse in the cardiology clinic -All other times call [phone] and ask to speak to the rotary engraver installation engineer. Return to work/ usual actvities: 1 week, as tolerated. No squatting or lifting more than 10 pounds until then. Driving: No driving for 48 hours after catheterization. Follow up Appointments: PCP: PATRIC AL MD at [phone] to see you on WednesdayAugust 28 at 10:50 am. Supervisor Fish Hatchery, Dr. Oseguera, to see you on 09/20/14 at noon. Please call [phone] with questions. Diabetes medication instructions You should [...] Complete By Expires Referral to Cardiac Rehab [[id number] Custom] Process Instructions: If no progress note charted, please enter Clinical details in comments. Scheduling Instructions: Comments: Pt will participate in cardiac rehab @ [facility] Questions: Responses: Reason for referral NSTEMI Provider Contact Information: JALEN Billingsley NP Dr Bruce Andrus [phone] Discharge References/Attachments: Discharge References/Attachments CHEST PAIN (ANGINA): AFTER YOUR VISIT (BANGLADESHI) CORONARY ARTERY DISEASE: AFTER YOUR VISIT (BANGLADESHI) DIABETES DIET GUIDELINES: AFTER YOUR VISIT (BANGLADESHI) HEART ATTACK: AFTER YOUR VISIT (BANGLADESHI) HEMOGLOBIN A1C: ABOUT THIS TEST (BANGLADESHI) HOME BLOOD GLUCOSE TEST: ABOUT THIS TEST (BANGLADESHI) Signed: JUSTIN OROSCO Pager [phone] DATE: 08/22/2013 * Miscellaneous - Provider, Scanning [...] Procedure Name Priority Date/Time Associated Diagnosis Comments HOME VISITS NURSE SCAN 08/24/2013 11:52 AM EDT POCT GLUCOSE Routine 08/22/2013 11:52 AM EDT POCT GLUCOSE Routine 08/22/2013 7:47 AM EDT EKG 12-LEAD Routine 08/22/2013 7:45 AM EDT Chest pain BMP W/FASTING GLUCOSE Routine 08/22/2013 4:03 AM EDT DIFFERENTIAL, AUTOMATED Routine 08/22/20 13 4:03 AM EDT CARDIAC ENZYMES ([facility]) Routine 08/22/2013 4:03 AM EDT CBC (WITH DIFF) Routine 08/22/2013 4:03 AM EDT POCT GLUCOSE Routine 08/21/2013 10:43 PM EDT POCT GLUCOSE Routine 08/21/2013 8:28 PM EDT CARDIAC ENZYMES ([facility]) STAT 08/21/2013 6:36 PM EDT POCT GLUCOSE Routine 08/21/2013 4:25 PM EDT EKG 12-LEAD Routine 08/21/2013 2:53 PM EDT Chest pain CARDIAC CATHETERIZATION Routine 08/21/20 13 2:38 PM EDT POCT GLUCOSE Routine 08/21/2013 11:37 AM EDT APTT STAT 08/21/2013 11:09 AM EDT ECHOCARDIOGRAM TRANSTHORACIC Routine 08/21/2013 9:16 AM EDT Chest pain POCT GLUCOSE Routine 08/21/2013 8:33 AM EDT BMP W/FASTING GLUCOSE Routine 08/21/2013 3:53 AM EDT DIFFERENTIAL, AUTOMATED Routine 08/21/20 3:53 AM EDT CARDIAC ENZYMES ([facility]) Routine 08/21/2013 3:53 AM EDT APTT Routine [...] STAT 08/20/2013 11:51 PM EDT CARDIAC ENZYMES ([facility]) STAT 08/20/2013 9:40 PM EDT XR CHEST [...] 08/20/2013 1: 45 PM EDT CARDIAC ENZYMES ([facility]) Routine 08/20/2013 1:45 PM EDT APTT Routine 08/20/2013 1:45 PM EDT PROTHROMBIN TIME Routine 08/20/2013 1:45 PM EDT CBC (WITH DIFF) Routine 08/20/2013 1:45 PM EDT MAGNESIUM Routine 08/20/2013 1:45 PM EDT BASIC METABOLIC PANEL Routine 08/20/2013 1:45 PM EDT POCT GLUCOSE Routine 08/20/2013 1:23 PM EDT documented in this encounter Results * SCAN DOC: HOME VISITS NURSE (08/24/2013 11:52 AM EDT) Anatomical Region Laterality Modality Other Narrative 08/24/2013 12:55 PM EDT Procedure Note Provider, Scanning - 08/24/2013 11:52 AM EDT Scanning Provider MEDIA MGR SCAN EXT O RDR/RSLT * (ABNORMAL) POCT Glucose (08/22/2013 11:52 AM EDT) [facility] Glucose, POC 225(H) 60 - 199 mg/dL [facility] Comment: Supplemental ranges: <110 mg/dL before meals <200 mg/dL all other times of the day Blood specimen (specimen) 08/22/2013 11:52 AM EDT 08/22/2013 11:52 AM EDT Asad Biggs MD POINT OF CARE TEST O RDERABLES Performing Organization Address [facility] de Phone Number [facility] * POCT Glucose (08/22/2013 7:47 AM EDT) Glucose, POC 199 60 - 199 mg/dL [facility] Comment: Supplemental ranges: <110 mg/dL before meals <200 mg/dL all other times of the day Blood specimen (specimen) 08/22/2013 7:47 AM EDT 08/22/2013 7:47 AM EDT Asad Biggs MD POINT OF CARE TEST O RDERABLES Performing Organization Address [facility] Phone Number [facility] * EKG 12 Lead (08/22/2013 7:45 AM EDT) Ventricular rate 79 BPM MUSE SYSTEM Atrial Rate 79 BPM MUSE SYSTEM P-R Interval 182 ms MUSE SYSTEM QRS Duration 108 ms MUSE SYSTEM Q-T Interval 406 ms MUSE SYSTEM QTC Calculated (Bezet) 465 ms MUSE SYSTEM Calculated P [place] 57 degrees MUSE SYSTEM Calculated R [place] 23 degrees MUSE SYSTEM Calculated T [place] 2 degrees MUSE SYSTEM INTERPRETATION Normal sinus rhythm Cannot rule out Inferior infarct , age undetermined When compared with ECG of 21-AUG-2013 14:53, Borderline criteria for Inferior infarct are now present Confirmed by Brian DE [facility] ([id number]) on 08/23/2013 10:09:45 AM MUSE SYSTEM 08/22/2013 7:45 AM EDT 08/23/2013 10:09 AM EDT Tim Uribe MD ECG ORDERABLES Performing Organization Address [facility] Phone Number MUSE SYSTEM * (ABNORMAL) Differential, Automated (08/22/2013 [...] 0.06(H) 0.00 - 0.05 x10(3)/mc L CERNER ROBYENNIUM Blood specimen (specimen) 08/22/2013 4:03 AM EDT 08/22/2013 4:42 AM EDT Tim Uribe MD HEMATOLOGY ORDERAB LES [facility] * (ABNORMAL) BMP w/fasting Glucose (08/22/2013 4:03 [...] of Diabetes Mellitus, Position Statement from the [place] Diabetes Association. ??Diabetes Care, Volume 33, Supplement 1, Nov 2009 Blood Urea Nitrogen 6(L) 10 - 20 mg/dL CERNER MILLENNIUM Creatinine 0.62(L) 0.80 - 1.50 mg/dL CERNER MILLENNIUM Comment: Please note that the pediatric reference intervals supplied above were not validated at [facility]. Results from pediatric patients should be interpreted [...] MD CHEMISTRY ORDERABL ES Performing Organization Address [facility] de Phone Number ARIAN NELSON * (ABNORMAL) Cardiac Enzymes (08/22/2013 4:03 AM EDT) Pathologist [facility] Troponin-T 0.95(H) <=0.03 ng/mL CERNER MILLENNIUM Comment: 0.03 ng/mL: Represents the 99th percentile upper reference limit for normals. >0.03 ng/mL: Elevated cardiac troponin T level indicative of myocardial damage. Diagnosis of acute, evolving or recent DE requires a typical rise and gradual fall [...] consensus document of the Joint Society of Cardiology/[place] College of Cardiology Committee for the redefinition of myocardial infarction. Journal of the [place] College of Cardiology 2000; 36: 959-969] Creatine Kinase 455(H) 0 - 200 unit/L CERNER MILLENNIUM Blood specimen (specimen) 08/22/2013 4:03 AM EDT 08/22/2013 4:42 AM EDT Narrative Resulting Agency Comment Spec In Lab Tim Uribe MD CHEMISTRY ORDERABL ES Performing Organization Address [facility]/ZIP Co de Phone Number ARIAN CAENNIUM * (ABNORMAL) CBC (with Diff) (08/22/2013 4:03 AM EDT) White Blood Cell 10.0 4.0 - 10.0 x10(3)/mc L CERNER MILLENNIUM Red Blood Cell 4.17(L) 4.63 - 6.08 x10(6)/mc L CERNER MILLENNIUM Hemoglobin 12.7(L) 13.7 - 17.5 gm/dL [facility] MILL[facility]UM Hematocrit 37.7(L) 40.0 - 51.0 % [facility] MILL[facility]UM Mean Cell Volume 90.4 79.0 - 92.0 fL [facility] MILL[facility]UM Mean Cell Hemoglobin 30.5 25.6 - 32.2 pg [facility] Mean Cell Hemoglobin Concentration 33.7 32.0 - 36.5 gm/dL [facility] Platelet 201 145 - 370 x10(3)/mc L [facility] MILLENNIUM RDW Standard Deviation 40.4 35.0 - 46.0 fL [facility] MILL[facility]UM RDW coefficient of variation 12.4 10.9 - 14.4 % [facility] Mean Platelet Volume 11.2 9.0 - 12.0 fL [facility] Blood specimen (specimen) 08/22/2013 4:03 AM EDT 08/22/2013 4:42 AM EDT Narrative Resulting Agency Comment Spec In Lab Tim Uribe MD HEMATOLOGY ORDERAB LES Performing Organization Address City/[facility]/ZIP Co de Phone Number [facility] * POCT Glucose (08/21/2013 10:43 PM EDT) Glucose, POC 193 60 - 199 mg/dL [facility] Comment: Supplemental ranges: <110 mg/dL before meals <200 mg/dL all other times of the day Blood specimen (specimen) 08/21/2013 10:43 PM EDT 08/21/2013 10:43 PM EDT Asad Biggs MD POINT OF CARE TEST O RDERABLES Performing Organization Address [facility]/ZIP Co de Phone Number [facility] * (ABNORMAL) POCT Glucose (08/21/2013 8:28 PM EDT) Glucose, POC 259(H) 60 - 199 mg/dL [facility] Comment: Supplemental ranges: <110 mg/dL before meals <200 mg/dL all other times of the day Blood specimen (specimen) 08/21/2013 8:28 PM EDT 08/21/2013 8:28 PM EDT Asad Biggs MD POINT OF CARE TEST O RDERABLES Performing Organization Address [facility] Co de Phone Number [facility] * (ABNORMAL) Cardiac Enzymes (08/21/2013 6:36 PM EDT) Troponin-T 0.93(H) <=0.03 ng/mL [facility] Comment: 0.03 ng/mL: Represents the 99th percentile upper reference limit for normals. >0.03 ng/mL: Elevated cardiac troponin T level indicative of myocardial damage. Diagnosis of acute, evolving or recent DE requires a typical rise and gradual fall [...] consensus document of the Joint Society of Cardiology/[place] College of Cardiology Committee for the redefinition of myocardial infarction. Journal of the [place] College of Cardiology 2000; 36: 959-969] Creatine Kinase 594(H) 0 - 200 unit/L [facility] Blood specimen (specimen) 08/21/2013 6:36 PM EDT 08/21/2013 6:47 PM EDT Narrative Resulting Agency Comment Spec In Lab Sarthak Pollard MD CHEMISTRY ORDERABLES Performing Organization Address [facility] Co de Phone Number [facility] * POCT Glucose (08/21/2013 4:25 PM EDT) Glucose, POC 138 60 - 199 mg/dL [facility] Comment: Supplemental ranges: <110 mg/dL before meals <200 mg/dL all other times of the day Blood specimen (specimen) 08/21/2013 4:25 PM EDT 08/21/2013 4:25 PM EDT Asad Biggs MD POINT OF CARE TEST O RDERABLES Performing Organization Address [facility] Co de Phone Number [facility] * EKG 12 Lead (08/21/2013 2:53 PM EDT) Ventricular rate 75 BPM MUSE SYSTEM Atrial Rate 75 BPM MUSE SYSTEM P-R Interval 172 ms MUSE SYSTEM QRS Duration 106 ms MUSE SYSTEM Q-T Interval 388 ms MUSE SYSTEM QTC Calculated (Bezet) 433 ms MUSE SYSTEM Calculated P [place] 11 degrees MUSE SYSTEM Calculated R [place] 35 degrees MUSE SYSTEM Calculated T [place] 1 degrees MUSE SYSTEM INTERPRETATION Normal sinus rhythm Normal ECG When compared with ECG of 21-AUG-2013 02:54, No significant change was found Confirmed by Pablito Torres MD ([id number]) on 08/22/2013 3:01:48 PM MUSE SYSTEM 08/21/2013 2:53 PM EDT 08/22/2013 3:01 PM EDT Tim Uribe MD ECG ORDERABLES Performing Organization Address [facility] Co de Phone Number MUSE SYSTEM * Cardiac Catheterization (08/21/2013 2:38 PM EDT) Anatomical Region Laterality Modality Other Narrative 08/21/2013 7:29 PM EDT Procedure Note Provider, Scanning - 08/21/2013 3:30 PM EDT Asad Biggs MD CARDIAC CATH ORDERAB LES * (ABNORMAL) POCT Glucose (08/21/2013 11:37 AM EDT) Pathologist [facility] Glucose, POC 200(H) 60 - 199 mg/dL [facility] Comment: Supplemental ranges: <110 mg/dL before meals <200 mg/dL all other times of the day Blood specimen (specimen) 08/21/2013 11:37 AM EDT 08/21/2013 11:37 AM EDT Asad Biggs MD POINT OF CARE TEST O RDERABLES Performing Organization Address [facility] Co de Phone Number [facility] * (ABNORMAL) APTT (08/21/2013 11:09 AM EDT) Partial Thromboplastin Time 63(H) 25 - 35 sec [facility] Comment: Recommended therapeutic PTT range for full dose unfractionated heparin is 80-114 seconds. Blood specimen (specimen) 08/21/2013 11:09 AM EDT 08/21/2013 11:42 AM EDT Narrative Resulting Agency Comment Spec In Lab Asad Biggs MD HEMATOLOGY ORDERABLE S Performing Organization Address [facility] [facility] de Phone Number [facility] * Echocardiogram Transthoracic(Leb) (08/21/2013 9:16 AM EDT) EF 65 HEARTLAB SYSTEM Anatomical Region Laterality Modality Other 08/21/2013 Narrative 08/21/2013 9:51 AM EDT Procedure: ? Transthoracic Echocardiogram Patient: ? QUIANA AUSTIN P ?(Age): 1975(38) Med Rec#: ?[id number] ? Sex: ?M ? Site Loc: ?[facility] ? Ht / Wt: ??180(cm)/127(kg) Pt. Loc: ? Adult Floor ?BSA: ?2.52 Study Date: ?08/21/2013 ? Pt. Type: Inpatient Tape: ? Referring: Eben Bingham Referring: AKANKSHA CAI Community Life Director: Patric Blunt [facility] Interpreting Fellow: Luca Wilson ([id number]) Diagnosis: ??Chest pain (786.50) CPT Code(s): ??Echo Full (67865), ??Spectral Doppler (75635), ??Color Doppler (59547), Indication(s): ??Chest Pain Rhythm: HR ?BP ?121/62 [...] ? Mid-Inferior ?Normal ? Mid-Inferoseptal ?Normal ? [place]-Septal ? Normal ? [place]-Anterior ? Normal ? [place]-Lateral ?Normal ? [place]-Inferior ? Normal ? [place]-Tip ?Normal ? Chambers ?Value ?Units (Range) ? [...] been electronically signed by: Umair Brock MD ? 08/21/2013 09:50:27 Images reviewed and interpretation verified [facility] Cardiac Ultrasound [facility] Resulting Agency Comment 1X Procedure Note Umair Brock MD - 08/21/2013 Procedure: Transthoracic Echocardiogram Patient: UQIANA Llanos (Age): 1975(38) Med Rec#: [id number] Sex: M Site Loc: [facility] Ht / Wt: 180(cm)/127(kg) Pt. Loc: Adult Floor BSA: 2.52 Study Date: 08/21/2013 Pt. Type: Inpatient Tape: Referring: Eben Bingham Referring: AKANKSHA CAI Community Life Director: Patric Blunt [facility] Interpreting Fellow: Luca Wilson ([id number]) Diagnosis: Chest pain (786.50) CPT Code(s): Echo Full (49800), Spectral Doppler (38417), Color Doppler (31335), Indication(s): Chest Pain Rhythm: HR BP 121/62 [...] Normal Mid-Posterolateral Normal Mid-Inferior Normal Mid-Inferoseptal Normal [place]-Septal Normal [place]-Anterior Normal [place]-Lateral Normal [place]-Inferior Normal [place]-Tip Normal Chambers Value Units (Range) LV EF [...] 08/21/2013 09:50:27 Images reviewed and interpretation verified [facility] Cardiac Ultrasound Laboratory Eben Ruiz MD ECHO ORDERABLES * (ABNORMAL) POCT Glucose (08/21/2013 8:33 AM EDT) Pathologist [facility] Glucose, POC 202(H) 60 - 199 mg/dL [facility] Comment: Supplemental ranges: <110 mg/dL before meals <200 mg/dL all other times of the day Blood specimen (specimen) 08/21/2013 8:33 AM EDT 08/21/2013 8:33 AM EDT Asad Biggs MD POINT OF CARE TEST O RDERABLES Performing Organization Address [facility] Co de Phone Number [facility] * (ABNORMAL) APTT (08/21/2013 3:53 AM EDT) [facility] Partial Thromboplastin Time 61(H) 25 - 35 sec [facility] Comment: Recommended therapeutic PTT range for full dose unfractionated heparin is 80-114 seconds. Blood specimen (specimen) 08/21/2013 3:53 AM EDT 08/21/2013 4:00 AM EDT Narrative Resulting Agency Comment Spec In Lab Eben Ruiz MD HEMATOLOGY ORDERABLE S Performing Organization Address [facility] Co de Phone Number [facility] * (ABNORMAL) Differential, Automated (08/21/2013 3:53 AM EDT) [facility] Neutrophil % 70.9 34.0 - 71.0 % [...] x10(3)/mc L CERNER MILLENNIUM Blood specimen (specimen) 08/21/2013 3:53 AM EDT 08/21/2013 4:00 AM EDT Eben Ruiz MD HEMATOLOGY ORDERABLE S ARIAN NELSON * (ABNORMAL) Cardiac Enzymes (08/21/2013 3:53 AM EDT) Troponin-T 1.06(H) <=0.03 ng/mL CERNER MILLENNIUM Comment: 0.03 ng/mL: Represents the 99th percentile upper reference limit for normals. >0.03 ng/mL: Elevated cardiac troponin T level indicative of myocardial damage. Diagnosis of acute, evolving or recent DE requires a typical rise and gradual fall [...] consensus document of the Joint Society of Cardiology/[place] College [employer] Cardiology Committee for the redefinition of myocardial infarction. Journal of the [place] College of Cardiology 2000; 36: 959-969] Creatine Kinase 777(H) 0 - 200 unit/L CERNER [employer]ENNIUM Blood specimen (specimen) 08/21/2013 3:53 AM EDT 08/21/2013 4:00 AM EDT Narrative Resulting Agency Comment Spec In Lab Eben Ruiz MD CHEMISTRY ORDERABLES CERNER [facility]ENNIUM * (ABNORMAL) BMP w/fasting Glucose (08/21/2013 3:53 [...] of Diabetes Mellitus, Position Statement from the [place] Diabetes Association. ??Diabetes Care, Volume 33, Supplement 1, Nov 2009 Blood Urea Nitrogen 15 10 - 20 mg/dL CERNER [employer]ENNIUM Creatinine 0.67(L) 0.80 - 1.50 mg/dL CERNER MILLENNIUM Comment: Please note that the pediatric reference intervals supplied above were not validated at [facility]. Results from pediatric patients should be interpreted [...] Lab Eben Ruiz MD CHEMISTRY ORDERABLES ARIAN CERDAIUM * (ABNORMAL) CBC (with Diff) (08/21/2013 3:53 [...] MD HEMATOLOGY ORDERABLE S Performing Organization Address [facility] Co de Phone Number ARIAN NELSON * Prothrombin Time (08/21/2013 3:53 AM EDT) Prothrombin Time 13.5 12.0 - 15.0 sec [facility] Comment: [facility] Transfusion Committee Guidelines: INR less than 2.0, PTT less than OR equal to 43.5 seconds, or Fibrinogen greater than or equal to 100 mg/dl indicate adequate procoagulant activity for hemostasis in patients without underlying bleeding disorders. International Normalization Ratio 1.0 0.9 - 1.1 [facility] Blood specimen (specimen) 08/21/2013 3:53 AM EDT 08/21/2013 4:00 AM EDT Narrative Resulting Agency Comment Spec In Lab Asad Biggs MD HEMATOLOGY ORDERABLE S Performing Organization Address City/[facility] Co de Phone Number [facility] * (ABNORMAL) Triglyceride (08/21/2013 3:53 AM EDT) Triglyceride 733(H) <=149 mg/dL [facility] Comment: Reference Range: Normal triglycerides: ??<150 mg/dL Borderline high: ??150-199 mg/dL High: ??200-499 mg/dL Very high: ??>mv=059 mg/dL ELISEO 2001; 285(19):2001-8979 Blood specimen (specimen) 08/21/2013 3:53 AM EDT 08/21/2013 4:00 AM EDT Narrative Resulting Agency Comment Spec In Lab Eben Ruiz MD CHEMISTRY ORDERABLES Performing Organization Address [facility] Co de Phone Number [facility] * (ABNORMAL) HDL/Cholesterol Profile (08/21/2013 3:53 AM EDT) Cholesterol, Total 218(H) <=199 mg/dL [facility] Comment: Recommendations of the NCEP Adult Treatment Panel for the following risk cutoff thresholds for the [place] population: Desirable: <200 mg/dL Borderline High: 200-239 mg/dL High: > or = 240 mg/dL HDL Cholesterol 24(L) >=40 mg/dL [facility] Comment: Reference range: ??Low HDL: ?? < 40 mg/dL ??Normal: ?40-60 mg/dL ??Desirable: > 60 mg/dL ELISEO 2001; 285(19):5722-0417 Cholesterol/HDL Ratio 9.1 ratio [facility] Comment: A Cholesterol to HDL ratio below 4:1 is desirable. ??Studies suggest that increased CAD risk occurs at ratios above 5 for females and above 6 for men. ? [place] Heart Association ??(http://www.americanheart.org) ? Jazmine Int Med, 1994; 121:641 ? AM J Med, 1998; 105(1A):48S Blood specimen (specimen) 08/21/2013 3:53 AM EDT 08/21/2013 4:00 AM EDT Narrative Resulting Agency Comment Spec In Lab Eben Ruiz MD CHEMISTRY ORDERABLES Performing Organization Address [facility]/ZIP Co de Phone Number [facility] * (ABNORMAL) LDL Cholesterol, Direct (08/21/2013 3:53 AM EDT) LDL Cholesterol, Direct 107(H) <=99 mg/dL [facility] Comment: The National Cholesterol Education Program (NCEP) has set the following guidelines for LDL Cholesterol: Reference range: ?? Optimal: ?<100 mg/dL ?? Near Optimal/Above Optimal: ?? 100-129 mg/dL ?? Borderline high: ?130-159 mg/dL ?? High: ? 160-189 mg/dL ?? Very high: ?>fi=280 mg/dL ELISEO 2001: 285(22):1821-1531 Blood specimen (specimen) 08/21/2013 3:53 AM EDT 08/21/2013 4:00 AM EDT Narrative Resulting Agency Comment Spec In Lab Eben Ruiz MD CHEMISTRY ORDERABLES [facility] * (ABNORMAL) Hemoglobin A1c (08/21/2013 3:53 AM EDT) Hemoglobin A1c 10.0(H) 4.3 - 6.1 % [facility] Comment: The [place] Diabetes Association (ADA) has stated that HbA1c [...] 2013:36;suppl 1:S11-S66. Estimated Average Glucose 240 mg/dL ARIAN NELSON Comment: eAG equivalents for HbA1c percentages: HbA1c(%) [...] into estimated average glucose values. ??Diabetes Care 2008:31(8):0997-5154. Blood specimen (specimen) 08/21/2013 3:53 AM EDT 08/21/2013 4:00 AM EDT Narrative Resulting Agency Comment Spec In Lab Eben Ruiz MD CHEMISTRY ORDERABLES ARIAN NELSON * EKG 12 Lead (08/21/2013 2:54 AM EDT) Ventricular rate 68 BPM MUSE SYSTEM Atrial Rate 68 BPM MUSE SYSTEM P-R Interval 188 ms MUSE SYSTEM QRS Duration 104 ms MUSE SYSTEM Q-T Interval 406 ms MUSE SYSTEM QTC Calculated (Bezet) 431 ms MUSE SYSTEM Calculated P [place] 4 degrees MUSE SYSTEM Calculated R [place] 28 degrees MUSE SYSTEM Calculated T [place] 21 degrees MUSE SYSTEM INTERPRETATION Normal sinus rhythm Nonspecific T wave abnormality Abnormal ECG When compared with ECG of 20-AUG-2013 15:19, No significant change was found Confirmed by Pablito Torres MD ([id number]) on 08/21/2013 12:56:35 PM MUSE SYSTEM 08/21/2013 2:54 AM EDT 08/21/2013 12:56 PM EDT Eben Ruiz MD ECG ORDERABLES MUSE SYSTEM * (ABNORMAL) POCT Glucose (08/21/2013 1:59 AM EDT) Glucose, POC 262(H) 60 - 199 mg/dL [facility] Comment: Supplemental ranges: <110 mg/dL before meals <200 mg/dL all other times of the day Blood specimen (specimen) 08/21/2013 1:59 AM EDT 08/21/2013 1:59 AM EDT Asad Biggs MD POINT OF CARE TEST O RDERABLES Performing Organization Address [facility] Co de Phone Number [facility] * (ABNORMAL) POCT Glucose (08/20/2013 11:54 PM EDT) Glucose, POC 290(H) 60 - 199 mg/dL [facility] Comment: Supplemental ranges: <110 mg/dL before meals <200 mg/dL all other times of the day Blood specimen (specimen) 08/20/2013 11:54 PM EDT 08/20/2013 11:54 PM EDT Asad Biggs MD POINT OF CARE TEST O RDERABLES Performing Organization Address [facility] Co de Phone Number [facility] * APTT (08/20/2013 11:51 PM EDT) Partial Thromboplastin Time 35 25 - 35 sec [facility] Comment: Recommended therapeutic PTT range for full dose unfractionated heparin is 80-114 seconds. Blood specimen (specimen) 08/20/2013 11:51 PM EDT 08/21/2013 12:01 AM EDT Narrative Resulting Agency Comment Spec In Lab Asad Biggs MD HEMATOLOGY ORDERABLE S Performing Organization Address [facility] Co de Phone Number ARIAN NELSON * (ABNORMAL) Cardiac Enzymes (08/20/2013 9:40 PM EDT) Troponin-T 0.74(H) <=0.03 ng/mL ARIAN NELSON Comment: 0.03 ng/mL: Represents the 99th percentile upper reference limit for normals. >0.03 ng/mL: Elevated cardiac troponin T level indicative of myocardial damage. Diagnosis of acute, evolving or recent DE requires a typical rise and gradual fall [...] consensus document of the Joint Society of Cardiology/[place] College [employer] Cardiology Committee for the redefinition of myocardial infarction. Journal of the [place] College of Cardiology 2000; 36: 959-969] Creatine Kinase 828(H) 0 - 200 unit/L ARIAN NELSON Blood specimen (specimen) 08/20/2013 9:40 PM EDT 08/20/2013 9:47 PM EDT Narrative Resulting Agency Comment Spec In Lab Eben Ruiz MD CHEMISTRY ORDERABLES Performing Organization Address City/[facility]/ZIP Co de Phone Number ARIAN NELSON * XR chest routine PA [...] Glucose, POC 200(H) 60 - 199 mg/dL [facility] Comment: Supplemental ranges: <110 mg/dL before meals <200 mg/dL all other times of the day Blood specimen (specimen) 08/20/2013 8:26 PM EDT 08/20/2013 8:26 PM EDT Asad Biggs MD POINT OF CARE TEST O RDERABLES [facility] * (ABNORMAL) POCT Glucose (08/20/2013 5:03 PM EDT) Glucose, POC 230(H) 60 - 199 mg/dL [facility] Comment: Supplemental ranges: <110 mg/dL before meals <200 mg/dL all other times of the day Blood specimen (specimen) 08/20/2013 5:03 PM EDT 08/20/2013 5:03 PM EDT Asad Biggs MD POINT OF CARE TEST O RDERABLES ARIAN CERDAIUM * EKG 12 Lead (08/20/2013 3:19 PM EDT) Ventricular rate 68 BPM MUSE SYSTEM Atrial Rate 68 BPM MUSE SYSTEM P-R Interval 182 ms MUSE SYSTEM QRS Duration 100 ms MUSE SYSTEM Q-T Interval 410 ms MUSE SYSTEM QTC Calculated (Bezet) 435 ms MUSE SYSTEM Calculated P [place] 3 degrees MUSE SYSTEM Calculated R [place] 19 degrees MUSE SYSTEM Calculated T [place] 35 degrees MUSE SYSTEM INTERPRETATION Normal sinus rhythm Cannot rule out Inferior infarct (cited on or before 30-DEC-2011) When compared with ECG of 09-FEB-2012 10:55, Vent. rate has decreased BY ??34 BPM T wave inversion no longer evident in Anterior leads Confirmed by Brian DE, [facility] ([id number]) on 08/20/2013 5:30:42 PM MUSE SYSTEM [...] Absolute 0.04 0.00 - 0.05 x10(3)/mc L [facility] Blood specimen (specimen) 08/20/2013 1:45 PM EDT 08/20/2013 1:45 PM EDT Asad Biggs MD HEMATOLOGY ORDERABLE S Performing Organization Address [facility] Co de Phone Number [facility] * Magnesium (08/20/2013 1:45 PM EDT) Magnesium 0.74 0.69 - 1.07 mmol/L [facility] Blood specimen (specimen) 08/20/2013 1:45 PM EDT 08/20/2013 1:54 PM EDT Narrative Resulting Agency Comment Spec In Lab Asad iBggs MD CHEMISTRY ORDERABLES Performing Organization Address [facility] Co de Phone Number [facility] * (ABNORMAL) Cardiac Enzymes (08/20/2013 1:45 PM EDT) Troponin-T 0.34(H) <=0.03 ng/mL [facility] Comment: 0.03 ng/mL: Represents the 99th percentile upper reference limit for normals. >0.03 ng/mL: Elevated cardiac troponin T level indicative of myocardial damage. Diagnosis of acute, evolving or recent DE requires a typical rise and gradual fall [...] consensus document of the Joint Society of Cardiology/[place] College of Cardiology Committee for the redefinition of myocardial infarction. Journal of the [place] College of Cardiology 2000; 36: 959-969] Creatine Kinase 505(H) 0 - 200 unit/L CERNER MILLENNIUM Blood specimen (specimen) 08/20/2013 1:45 PM EDT 08/20/2013 1:54 PM EDT Narrative Resulting Agency Comment Spec In Lab Asad Biggs MD CHEMISTRY ORDERABLES CERNER MILLENNIUM * (ABNORMAL) Basic Metabolic Panel (non-fasting) (08/20/2013 1:45 PM EDT) Glucose 246(H) 60 - 199 mg/dL CERNER MILLENNIUM Comment:Diabetes: >=200 mg/d L plus symptoms Blood Urea Nitrogen 15 10 - 20 mg/dL CERNER MILLENNIUM Creatinine 0.68(L) 0.80 - 1.50 mg/dL CERNER MILLENNIUM Comment: Please note that the pediatric reference intervals supplied above were not validated at [facility]. Results from pediatric patients should be interpreted [...] Biggs MD CHEMISTRY ORDERABLES Performing Organization Address [facility] de Phone Number ARIAN CERDAIUM * (ABNORMAL) APTT (08/20/2013 1:45 PM EDT) Partial Thromboplastin Time 40(H) 25 - 35 sec ARIAN ROBYENNIUM Comment: Recommended therapeutic PTT range for full dose unfractionated heparin is 80-114 seconds. Blood specimen (specimen) 08/20/2013 1:45 PM EDT 08/20/2013 1:45 PM EDT Narrative Resulting Agency Comment Spec In Lab Asad Biggs MD HEMATOLOGY ORDERABLE S Performing Organization Address [facility] de Phone Number ARIAN CERDAIUM * Prothrombin Time (08/20/2013 1:45 PM EDT) Prothrombin Time 13.7 12.0 - 15.0 sec ARIAN [facility]ARYIUM Comment: [facility] Transfusion Committee Guidelines: INR less than 2.0, PTT less than OR equal to 43.5 seconds, or Fibrinogen greater than or equal to 100 mg/dl indicate adequate procoagulant activity for hemostasis in patients without underlying bleeding disorders. International Normalization Ratio 1.0 0.9 - 1.1 ARIAN NELSON Blood specimen (specimen) 08/20/2013 1:45 PM EDT 08/20/2013 1:45 PM EDT Narrative Resulting Agency Comment Spec In Lab Asad Biggs MD HEMATOLOGY ORDERABLE S Performing Organization Address [facility] de Phone Number ARIAN NELSON * D-Dimer, Quantitative (08/20/2013 1:45 PM EDT) Pathologist [facility] D-Dimer <200 0 - 500 FEU ng/ml CERBRIAN NELSON Comment: The D-Dimer assay is used to [...] MD HEMATOLOGY ORDERABLE S Performing Organization Address [facility] de Phone Number ARIAN NELSON * (ABNORMAL) CBC (with Diff) (08/20/2013 1:45 PM EDT) Pathologist [facility] White Blood Cell 12.2(H) 4.0 - 10.0 [...] Volume 11.4 9.0 - 12.0 fL ARIAN CERDAIUM Blood specimen (specimen) 08/20/2013 1:45 PM EDT 08/20/2013 1:45 PM EDT Narrative Resulting Agency Comment Spec In Lab Asad Biggs MD HEMATOLOGY ORDERABLE S Performing Organization Address City/[facility]/ZIP Co de Phone Number ARIAN CERDAIUM * Lavender Tube HOLD (08/20/2013 1:45 PM EDT) Lavender Hold Sample in lab. ARIAN NELSON Blood specimen (specimen) 08/20/2013 1:45 PM EDT 08/20/2013 1:45 PM EDT Asad Biggs MD HEMATOLOGY ORDERABLE S Performing Organization Address [facility] Co de Phone Number ARIAN CERDAIUM * Blue Tube HOLD (08/20/2013 1:45 PM EDT) Blue Hold Sample in lab. ARIAN NELSON Blood specimen (specimen) 08/20/2013 1:45 PM EDT 08/20/2013 1:45 PM EDT Asad Biggs MD HEMATOLOGY ORDERABLE S Performing Organization Address [facility] Co de Phone Number ARIAN CERDAIUM * Green Tube HOLD (08/20/2013 1:45 PM EDT) Green Hold Sample in lab. ARIAN NELSON Blood specimen (specimen) 08/20/2013 1:45 PM EDT 08/20/2013 1:45 PM EDT Asad Biggs MD CHEMISTRY ORDERABLES ARIAN CERDAIUM * (ABNORMAL) POCT Glucose (08/20/2013 1:23 PM EDT) Glucose, POC 243(H) 60 - 199 mg/dL ARIAN CAPETR Comment: Supplemental ranges: <110 mg/dL before meals <200 mg/dL all other times of the day Blood specimen (specimen) 08/20/2013 1:23 PM EDT 08/20/2013 1:23 PM EDT Asad Biggs MD POINT OF CARE TEST O RDERABLES [facility]AN [facility]DAFORMERLY [facility] documented in this encounter Visit Diagnoses Not on filedocumented in this encounter Administered Medications Inactive Administered [...] Given 08/22/2013 8:57 AM EDT 81 mg bivalirudin (ANGIOMAX) 250 mg in sodium chloride 0.9% 50 mL infusion (DELIVERY OF [employer]) CONTINUOUS PRN, Starting on Wed08/21/13 at 1345, Until Wed08/21/13 at 1438, Cath (Intra-Procedure), Routine New Bag 08/21/2013 1:45 PM EDT 224 mg/hr 44.8 mL/hr bivalirudin (ANGIOMAX) injection ONCE PRN, Starting on Wed08/21/13 at 1345, Until Wed08/21/13 at 1438, Intra-Operative (Intra-Procedure), Routine Given 08/21/2013 1:45 PM EDT 96 mg clopidogrel (PLAVIX) tablet 75 mg 75 mg, Oral, DAILY, First dose on Wed08/22/13 at 0900, Until Discontinued, Routine Given 08/22/2013 8:57 AM EDT 75 mg clopidogrel (PLAVIX) tablet ONCE PRN, Starting on Wed08/21/13 at 1348, Until Wed08/21/13 at 1438, Intra-Operative (Intra-Procedure), Routine Given 08/21/2013 1:48 PM EDT 300 mg diaZEPam (VALIUM) tablet 5 mg 5 [...] Given 08/20/2013 8:16 PM EDT 20 mg fentaNYL 50mcg/mL injection ONCE PRN, Starting on Wed08/21/13 at 1347, Until Wed08/21/13 at 1438, Pain, Intra-Operative (Intra-Procedure), Routine Given 08/21/2013 2:12 PM EDT 2 5 mcg Given 08/21/2013 1:47 PM EDT 25 mcg flu vaccine (36 mos+) (PF) (FLUZONE) 45 [...] than 145 sec X 2 - call household cook See Bolus dosing guidance for aPTT values [...] Given 08/21/2013 8:47 PM EDT 10 Units lidocaine (XYLOCAINE) 10 mg/mL (1 %) injection ONCE PRN, Starting on Wed08/21/13 at 1313, Until Wed08/21/13 at 1438, Cath (Intra-Procedure), Routine Given 08/21/2013 1:13 PM EDT 100 mg metoprolol tartrate (LOPRESSOR) tablet 50 mg 50 [...] 50 mg, Oral, DAILY, First dose on [place] 08/20/13 at 1700, Until Discontinued, Routine Given 08/22/2013 8:5 9 AM EDT 50 mg Given 08/21/2013 9:00 AM EDT 50 mg Given 08/20/2013 6:37 PM EDT 50 mg simvastatin (ZOCOR) tablet 20 mg 20 mg, Oral, EVERY EVENING, First dose on [place] 08/20/13 at 1700, Until Discontinued Given 08/21/2013 5:11 PM EDT 20 mg Given 08/20/2013 6:37 PM EDT 20 mg sodium chloride 0.9 % flush 5 mL 5 mL, Intravenous, EVERY 12 HOURS, First dose on [place] 08/20/13 at 1545, Until Discontinued Given 08/20/2013 3:30 PM EDT 5 mLs sodium chloride 0.9 % flush 5 mL 5 mL, Intravenous, EVERY 12 HOURS, First dose on [place] 08/20/13 at 1545, Until Discontinued, Routine Given [...] Procedure), Routine 1201 (Given - Provider: Lola Tipton RN) diphenhydrAMINE (BENADRYL) capsule 25 mg (COMPLETED) 25 mg, Oral, ONCE, 1 dose, On Wed08/21/13 at 1215, Cath (Day of Procedure), Routine 1200 (Given - Provider: Lola Tipton RN) famotidine (PEPCID) tablet 20 mg (CANCELED) 20 mg, Oral, 2 TIMES DAILY, First dose on Wed08/20/13 at 2100, Until Discontinued, Routine 2015 (Given - Provider: Mili Kent RN) 0858 (Given - Provider: Lola [...] Provider: Sana Bella RN)2021 (Given - Provider: Mili Kent RN) 0838 (Given - Provider: Lola Tipton RN - Comment: pt was having echo)1203 (Given - Provider: Lola Tipton RN)162 (Not Given - Provider: Lola Tipton RN - Reason: Order parameters not met)2036 (Given - Provider: Allen Tavarez RN) 0857 (Given - Provider: Roxanna Mcallister)1208 (Given - Provider: Sangita Espinoza RN) insulin aspart (NOVOLOG) VIAL injection 4 Units (COMPLETED) 4 Units, Subcutaneous, ONCE, On Wed08/21/13 at 0015, 1 dose 0013 (Given - Provider: Mili Kent RN) insulin glargine (LANTUS) PEN injection [...] Until Discontinued, Routine 2016 (Given - Provider: Mili Kent RN) 0858 (Given - Provider: Lola [...] on Wed08/20/13 at 1700, Until Discontinued, Routine 183 (Given - Provider: Sana Bella RN) 0900 (Given - Provider: Lola Tipton RN) 0859 (Given - Provider: Roxanna Mcallister) simvastatin (ZOCOR) tablet 20 mg (CANCELED) 20 mg, Oral, EVERY EVENING, First dose on Wed08/20/13 at 1700, Until Discontinued 183 (Given - Provider: Sana Bella RN) 1711 (Given - Provider: Lola Tipton RN) sodium chloride 0.9 % flush 5 mL (CANCELED) 5 mL, Intravenous, EVERY 12 HOURS, First dose on Wed08/20/13 at 1545, Until Discontinued 1530 (Given - Provider: Sana Bella RN) 0345 (Not Given - Provider: Mili Kent RN - Reason: See comment - Comment: Infusing) sodium chloride 0.9 % flush 5 mL (CANCELED) 5 mL, Intravenous, EVERY 12 HOURS, First dose on Wed08/20/13 at 1545, Until Discontinued, Routine 1530 (Given - Provider: Sana Bella RN) 0345 (Not Given - Provider: Mili Kent RN - Reason: See comment - Comment: Infusing)1545 (Given - Provider: Lola Tipton RN) 0345 (Not Given - Provider: Allen Tavarez RN - Reason: Contraindicated - Comment: previously flushed) sodium chloride 0.9 % flush 5 mL (CANCELED) 5 mL, Intravenous, EVERY 12 HOURS, First dose on Wed08/21/13 at 0200, Until Discontinued, Cath (Day of Procedure), Routine 0144 (Given - Provider: Mili Kent RN)1400 (Not Given - Provider: Lola Tipton RN - Reason: Patient not available) 0200 (Given - Provider: Allen Tavarez RN)1400 (Due) sodium chloride 0.9 % flush 5 mL (CANCELED) 5 mL, Intravenous, EVERY 12 HOURS, First dose on Wed08/21/13 at 0015, Until Discontinued, Cath (Day of Procedure), Routine 0015 (Given - Provider: Mili Kent RN)1215 (Not Given - Provider: Lola Tipton RN - Reason: Patient not available) venlafaxine (EFFEXOR-XR) XR Capsule 225 mg (CANCELED) 225 mg, Oral, DAILY WITH BREAKFAST, First dose on Wed08/21/13 at 0800, Until Discontinued, Routine 0900 (Given - Provider: Lola Tipton RN) 0859 (Given - Provider: Roxanna Mcallister) Continuous Medication Order 08/20/2013 08/21/2013 08/22/2013 heparin 25,000 units in dextrose 5% 500 mL infusion (CANCELED) 350-7,000 Units/hr (rounded to 7-140 mL/hr), Intravenous, CONTINUOUS, Starting on 08/20/13 at 1515, Until Wed08/21/13 at 1525, Patient [...] than 145 sec X 2 - call household cook See Bolus dosing guidance for aPTT values less than 80 seconds under PRN medications, Routine 1330 (New Bag - Provider: Sana Bella RN)1841 (Rate/Dose Change - Provider: Sana Bella RN) 0032 (Rate/Dose Change - Provider: Mili Kent RN)0542 (Rate/Dose Change - Provider: Mili Kent RN)0552 (New Bag - Provider: Mili Kent RN)1230 (Stopped - Provider: Lola Tipton, DAVID) nitroGLYcerin 50 mg in dextrose 5% 250 mL infusion (CANCELED) 10 mcg/min (rounded to 3 mL/hr), Intravenous, CONTINUOUS, Starting on Wed08/20/13 at 1500, Until Wed08/21/13 at 1525, Maximum dose: 200 mcg/min, Routine 1500 (New Bag - Provider: Michelle Chong RN)1844 (Rate/Dose Change - Provider: Sana Bella RN)2017 (Rate/Dose Change - Provider: Mili Kent RN) 0216 (Rate/Dose Change - Provider: Mili Kent RN)1152 (New Bag - Provider: Lola Tipton RN)1319 (Stopped - Provider: Evy Sánchez RN) sodium chloride 0.9% infusion (CANCELED) 1,000 mL, at 100 mL/hr, Intravenous, CONTINUOUS, Starting on Wed08/20/13 at 1545, Until Wed08/21/13 at 1441 1556 (New Bag - Provider: Sana Bella, RN)2155 (Stopped - Provider: Mili Kent RN - Comment: stop per Dr. Golden) 1000 (Canceled Entry - Provider: Lola Tipton, DAVID)1050 (Canceled Entry - Provider: Lola Tipton RN) sodium chloride 0.9% infusion (CANCELED) 100 mL/hr, Intravenous, CONTINUOUS, Starting on Wed08/21/13 at 0200, Until Wed08/21/13 at 1742, Cath (Day of Procedure) 0155 (New Bag - Provider: Mili Kent RN)0906 (New Bag - Provider: Lola Tipton, DAVID)1050 (Rate/Dose Change - Provider: Lola Tipton RN)1506 [...] 24 hours., Routine 0217 (Given - Provider: Mili Kent RN) bivalirudin (ANGIOMAX) 250 mg in sodium chloride 0.9% 50 mL infusion ([employer]) (CANCELED) CONTINUOUS PRN, Starting on Wed08/21/13 at [...] bolus , Routine 0033 (Given - Provider: Mili Kent RN) lidocaine (XYLOCAINE) 10 mg/mL (1 [...] Routine documented in this encounter Care Teams Swatcher Relationship Specialty Start Date End Date Patric Al MD PCP - General 12/29/11 02/26/19 documented as of this encounter
--- OUTSIDE RECORDS SUMMARY | 2024-07-14 14:36 | XMS_ITS | Encounter Summary ---
Author Organization [facility] Address [facility] [place] [address] Care Team Providers Care Auto Camp Attendant Name Role Phone Guanako Gusman MD Primary Care Provider Encounter Details Date Type Department Care Team (Late st Contact Info) Description 02/09/2012 10:27 AM EDT - 02/09/2012 11:59 PM EDT Hospital Encounter XRay at [address] [place] [phone] Chest pain Social History Tobacco Use Types Packs/Day Years Used Date Smoking Tobacco: Former Cigarettes 1 25 0 12/28/1986 - 12/28/2011 Alcohol Use Standard Drinks/Week Comments No 0 (1 standard drink = 0.6 oz pur e alcohol) Sex and Gender Information Value Date Recorded Sex Assigned at Not on file Gender Identity Not on file Sexual Orientation Not on file documented as of this encounter Medications at Time of Discharge Medication Sig Dispensed Refills Start Date End Date Blood Sugar Diagnostic (FREESTYLE LITE STRIPS) test stripIndications:pred iabetes s/p CABG by Other route 2 times daily. 1 box = 100 test strips Indications: prediabetes s/p CABG 100 each 1 01/08/2012 Lancets (FREESTYLE LANCETS) MiscIndications:predi abetes now s/p CABG by Other route 2 [...] tablet Take 225 mg by mouth daily. amphetamine-dextroamp hetamine (ADDERALL) 20 mg tablet Take 20 mg by mouth daily. 08/22/2013 UNABLE TO FIND 2 capsules daily. Med Name: alan 08/22/2013 HYDROmorphone (DILAUDID) 4 mg tabletIndications:S/P CABG (coronary artery bypass graft) Take 1 tablet by mouth nightly as needed for Pain. 40 tablet 0 02/09/2012 03/08/2012 aspirin 81 mg chewable tablet Take 81 mg by mouth daily. 01/08/2012 08/22/2013 metFORMIN (GLUCOPHAGE) 500 mg tablet Take 1 tablet by mouth daily. 60 tablet 1 01/08/2012 08/22/2013 metoprolol tartrate (LOPRESSOR) 25 mg tablet Take 1 tablet by mouth 2 times daily. 60 tablet 2 01/08/2012 03/08/2012 senna-docusate (PERICOLACE) 8.6-50 mg per tablet Take 2 tablets by mouth daily as needed for Constipation. 01/08/2012 05/28/2024 simvastatin (ZOCOR) 20 mg tablet Take 20 mg by mouth nightly. 08/25/2013 sertraline (ZOLOFT) 50 mg tablet Take 50 mg by mouth daily. 08/22/2013 omeprazole (PRILOSEC) 20 mg capsule Take 40 mg by mouth daily. 08/22/2013 documented as of this encounter Plan of Treatment Not on file documented as of this encounter Procedures Procedure Name Priority Date/Time Associated Diagnosis Comments XR CHEST PA AND LATERAL Routine 02/09/2012 10:35 AM EDT documented in this encounter Results * XR CHEST ROUTINE PA & LATERAL (02/09/2012 10:35 AM EDT) Anatomical Region Laterality Modality Chest N/A Radiographic Sally ging 02/09/2012 10:3 5 AM EDT Narrative 02/09/2012 8:14 PM EDT CHEST: ?? INDICATION: ??Four week followup status post CABG. ?? TECHNIQUE: ??PA and lateral chest. ?? COMPARISON: ??January 07, 2012. ?? FINDINGS: ??The air-fluid level noted on the prior exam can no longer be delineated. ??Lungs are clear. ??No pleural effusion. ??Normal size of heart and mediastinum. Procedure Note Lizbet Ramirez MD - 02/09/2012 CHEST: INDICATION: Four week followup status post CABG. TECHNIQUE: PA and lateral chest. COMPARISON: January 07, 2012. FINDINGS: The air-fluid level noted on the prior exam can no longer be delineated. Lungs are clear. No pleural effusion. Normal size of heartand mediastinum. Ricky ANDERSON IMG DX ORDERABLES documented in this encounter Visit Diagnoses Diagnosis Chest pain Chest pain, unspecified documented in this encounter Care Teams Auto Camp Attendant Relationship Specialty Start Date End Date Guanako Gusman MD PCP - General 12/29/11 02/26/19 documented as of this encounter
--- OUTSIDE RECORDS SUMMARY | 2024-07-14 14:36 | XMS_ITS | Encounter Summary ---
Author Organization [facility] Address [facility] [place] [address] Care Team Providers Care Social Problems Specialist Name Role Phone Guanako Gusman MD Primary Care Provider [phone] Encounter Details Date Type Department Care Team (Late st Contact Info) Description 01/26/2012 Orders Only [place] [address] Benjamin Lockwood, PA [facility] CARDIOTHORAC[place] [address] Social History Tobacco Use Types Packs/Day Years [...] on filedocumented in this encounter Care Teams Social Problems Specialist Relationship Specialty Start Date End Date Guanako Gusman MD PCP - General 12/29/11 02/26/19 documented as of this encounter
--- OUTSIDE RECORDS SUMMARY | 2024-07-14 14:36 | XMS_ITS | Encounter Summary ---
Author Organization [facility] Address [facility] [place] [address] Care Team Providers Care Nursing Clinical Director Name Role Phone Guanako Gusman MD Primary Care Provider [phone] Reason for Visit * Reason Onset Date Comments Sweats 01/16/2012 Encounter Details Date Type Department Care Team (Late st Contact Info) Description 01/16/2012 Telephone Cardiology at [address] [phone] Maninder Brennan MD [facility] [place] [address] Sweats Social History Tobacco Use Types Packs/Day Years [...] encounter Miscellaneous Notes * Telephone Encounter - Maninder Brennan MD - 01/16/2012 1:49 PM EST 36-y.o. male, smoking hx, significant family history of early onset coronary artery disease, PMHx CAD s/p CABGx3 (12/2011), morbid obesity, HTN, hyperlipidemia, smoking, and narcolepsy calls the [facility] stating that he has been experiencing 'cold sweats' since yesterday. He had called his local ED who a dvised him to check his blood glucose and was found to be 118. He denies any other symptoms including chest pain/pressure, SOB, palpitations, lightheadedness etc., or any changes to his sternal woundaccess site which has been fine. As the cause of his cold sweats is unclear, pt was advised to seekfurther medical attention at his Emergency Department. documented in this encounter Plan of Treatment Not on file documented as of this encounter Visit Diagnoses Not on filedocumented in this encounter Care Teams Nursing Clinical Director Relationship Specialty Start Date End Date Guanako Gusman MD PCP - General 12/29/11 02/26/19 documented as of this encounter
--- OUTSIDE RECORDS SUMMARY | 2024-07-14 14:36 | XMS_ITS | Encounter Summary ---
Author Organization Formerly [facility] Address [facility] Jean Marie britton [place] [phone] Care Team Providers Care Development Trainer Name Role Phone Guanako Gusman MD Primary Care Provider [phone] Reason for Visit * Reason Onset Date Comments Follow-up 01/18/2012 Called patient t o follow up on smoking cessation counseling done while he was inpatient. Encounter Details Date Type Department Care Team (Late st Contact Info) Description 01/18/2012 Telephone Cardiothoracic Surgery [place] [phone] Vibha Martines APRN [facility] [place] [address] Follow-up (Called patient to follow up on smoking cessation counseling done while he was inpatient.) Social History Tobacco Use Types Packs/Day Years [...] encounter Miscellaneous Notes * Telephone Encounter - Vibha Martines APRN - 01/18/2012 9:34 AM EDT I called Mr. Dixon to follow up on our conversation and counseling session for smoking cessation while he had been an inpatient. He indicated at that time that he did not want to smoke ever again andhad strong feelings about not taking any medication to help with this. He wanted to continue to go [place]. We agreed that I would call him in 1-2 weeks for support. I called his listed phone number this am and got an automated message that The person you are trying to call is not receiving messages at this time. Please call back at a later time. I was unable to even leave a voicemail that I had called him. I will attempt to call patient again later today and tomorrow if I do not reach him today. VIBHA MARTINES APRN documented in this encounter Plan of Treatment Not on file documented as of this encounter Visit Diagnoses Not on filedocumented in this encounter Care Teams Development Trainer Relationship Specialty Start Date End Date Guanako Gusman MD PCP - General 12/29/11 02/26/19 documented as of this encounter
--- OUTSIDE RECORDS SUMMARY | 2024-07-14 14:36 | XMS_ITS | Encounter Summary ---
Author Organization [facility] Address [facility] [place] [address] Care Team Providers Care Administrator Of Home Health Name Role Phone Guanako Gusman MD Primary Care Provider [phone] Encounter Details Date Type Department Care Team (Late st Contact Info) Description 08/20/2013 Telephone Cardiology at [address] [phone] Luz Horvath MD [facility] [place] [address] Social History Tobacco Use Types Packs/Day Years [...] encounter Miscellaneous Notes * Telephone Encounter - Luz Horvath MD - 08/20/2013 11:08 AM EDT Transfer call from Dr. Akanksha Torres at [facility]. 38 yo s/p recent CABG 12/20 (MARTINEZ-> LAD, SVG-> PDA), noncompliance, poorly controlled diabetes, HTN, HLD who presents with chest pain that began around 11 am yesterday with radiation to his L arm. He presented to the ED and was admitted. His Trop 0.04-> 0.52. Cr 0.9, Wbc 15.5, Hbg 14.8, plts 238, BSG 500 now 366. He had more cp in house around 11 pm last night and had associated diaphoresis. He is now CP free after being on bedrest. He only takes vivance? Amphetamine?, effexor, and ritalin 20 tid. He is noncompliant with diabetes meds. His EKG has no acute ischemia changes. Bp 120/70,HR 70s, 99% on [address] [facility] for mgmt of UA/NSTEMI in noncompliant diabetic with recent CABG. Likely cardiac cath tomorrow. documented in this encounter Plan of Treatment Not on file documented as of this encounter Visit Diagnoses Not on filedocumented in this encounter Care Teams Administrator Of Home Health Relationship Specialty Start Date End Date Guanako Gusman MD PCP - General 12/29/11 02/26/19 documented as of this encounter
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
--- OUTSIDE RECORDS SUMMARY | 2024-07-14 14:36 | XMS_ITS | Encounter Summary ---
Author Organization [facility] Address [facility] [place] [address] Care Team Providers Care Supervisor Rose Grading Name Role Phone Guanako Gusman MD Primary Care Provider [phone] Reason for Visit * Reason Comments Follow Up Surgery Encounter Details Date Type Department Care Team (Late st Contact Info) Description 02/09/2012 11:00 AM EDT Office [place] [address] Inna Tovar MD [facility] CARDIOTHORACIC [place] [address] Chest pain; S/P CABG (coronary artery bypass graft) Discharge Disposition: Home Social History Tobacco Use [...] Sign Reading Time Taken Comments Blood Pressure 128/94 02/09/2012 10:45 AM EDT Pulse 102 02/09/2012 10:45 AM EDT regular Temperature - - Respiratory Rate - - Oxygen Saturation 98% 02/09/2012 10: 45 AM EDT at rest, room air Inhaled Oxygen Concentration - - Weight 121.6 kg (268 lb) 02/09/2012 10: 45 AM EDT Height 179.1 cm (5' 10.5) 02/09/2012 1 0:45 AM EDT Body Mass Index 37.91 02/09/2012 10:45 AM EDT documented in this encounter Progress Notes * Inna Tovar MD - 02/09/2012 11:21 AM EDT Cardiothoracic Surgery Lux Dixon Jr. returns to clinic following his CABG surgery. Since discharge, he has been doing fairly well. Pain has been a problem. He has pain across his chest and up his posterior neck with movement. He think this is slowly getting better, but it still hinders him. He is eating well. He is sleeping poorly secondary to the pain. He has had no nightmares. He has been reasonably active, and is doing rehab. He is otherwise without complaints. Problem List [...] FOR CABG performed by INNA TOVAR at [facility] OR ??? Cabg, artery-vein, single 01/04/2012 @CABG, VENOUS & ARTERIAL GRAFT;SINGLE VEIN GRAFT performed by INNA TOVAR at [facility] OR Outpatient prescriptions marked as taking for the 02/09/12 encounter (Office Visit) with INNA TOVAR Medication Sig Dispense Refill ??? acetaminophen (TYLENOL) 500 mg tablet Take 2 tablets by mouth every 6 hours as needed for Pain.30 tablet ??? aspirin 81 mg chewable tablet Take 81 mg by mouth daily. ??? metFORMIN (GLUCOPHAGE) 500 mg tablet Take 1 tablet by mouth daily. 60 tablet 1 ??? metoprolol tartrate (LOPRESSOR) 25 mg tablet Take 1 tablet by mouth 2 times daily. 60 tablet 2 ??? senna-docusate (PERICOLACE) 8.6-50 mg per tablet [...] 225 mg by mouth daily. Filed Vitals: 02/09/12 1045 BP: 128/94 Pulse: 102 121.564 kg (268 lb) .FLOWAMB[14 Weight - Scale: 121.564 kg (268 lb) On physical exam, he looks well. Incisions are healing well without erythema or signs of infection. Lungs are clear bilaterally. Heart is RR&R. ECG shows NSR CXR shows clear lung king bilaterally. Assessment and Plan: Overall he is doing well following his surgery. I told him that he may continue to increase his activity as tolerated. I gave him a script for 40 dilaudid to be used at night as needed to help him sleep. I will see him again in one month to assure that he is improving. INNA TOVAR MD documented in this encounter Plan of Treatment Not on file documented as of this encounter Procedures Procedure Name Priority Date/Time Associated Diagnosis Comments EKG 12-LEAD Routine 02/09/2012 10:55 AM EDT Chest pain documented in this encounter Results * EKG 12 Lead (02/09/2012 10:55 AM EDT) Ventricular rate 102 BPM MUSE SYSTEM Atrial Rate 102 BPM MUSE SYSTEM P-R Interval 156 ms MUSE SYSTEM QRS Duration 96 ms MUSE SYSTEM Q-T Interval 348 ms MUSE SYSTEM QTC Calculated (Bezet) 453 ms MUSE SYSTEM Calculated P Glenvil 41 degrees MUSE SYSTEM Calculated R Glenvil 25 degrees MUSE SYSTEM Calculated T Glenvil 74 degrees MUSE SYSTEM INTERPRETATION Sinus tachycardia Inferior infarct , age undetermined Nonspecific T wave abnormality Abnormal ECG When compared with ECG of 04-JAN-2012 16:26, Inferior infarct is now Present Inverted T waves have replaced nonspecific T wave abnormality in Anterior leads Confirmed by MD DELMIS, MERNA ([id number]) on 02/09/2012 4:00:55 PM MUSE SYSTEM 02/09/2012 10:5 5 AM EDT 02/09/2012 4:00 PM EDT Inna Tovar MD ECG ORDERABLES MUSE SYSTEM documented in this encounter Visit Diagnoses Diagnosis Chest pain Chest pain, unspecified S/P CABG (coronary artery bypass graft) Postsurgical aortocoronary bypass status documented in this encounter Care Teams Supervisor Rose Grading Relationship Specialty Start Date End Date Guanako Gusman MD PCP - General 12/29/11 02/26/19 documented as of this encounter
--- OUTSIDE RECORDS SUMMARY | 2024-07-14 14:37 | XMS_ITS | Encounter Summary ---
Author Organization [facility] [place] [address] Care Team Providers Care Measurer Name Role Phone Guanako Gusman MD Primary Care Provider [phone] Encounter Details Date Type Department Care Team (Late st Contact Info) Description 01/04/2012 [place] [id number] Unknown None Social History Tobacco Use Types Packs/Day Years [...] Procedure Name Priority Date/Time Associated Diagnosis Comments TRANSESOPHAGEAL ECHOCARDIOGRAM (HELEN) Routine 01/04/2012 documented in this encounter Results * TRANSESOPHAGEAL ECHOCARDIOGRAM (HELEN) (01/04/2012) Anatomical Region Laterality Modality Other 01/04/2012 Narrative 01/04/2012 3:49 PM EST Procedure: ? Transesophageal Echocardiogram Patient: ? QUIANA Llanos ?(Age): () ? Med Rec#: ?[id number] ? Sex: ? Site Loc: ? Ht / Wt: ??(cm)/(kg) ? Pt. Loc: ?BSA: ? Study Date: ?01/04/2012 ? Pt. Type: Tape: ? Referring: BASILIO Referring: Alfonso Morales Reading: Rodrigo Montgomery ([id number]) Performing: Rodrigo Montgomery ([id number]) M[employer]ers [employer] Acquis[employer] Attorney: KEVIN Diagnosis:CPT Code(s): Indication(s):Rhythm: SUMMARY: 1. Intraoperative HELEN was performed at the request of Dr. Morales to confirm and quantify cardiovascular conditions and diagnoses, assess the need for additional or alternative surgical procedures, assess appropriateness of cannulation sites and to facilitate their placement, evaluate for the presence of intra-cardiac shunts and thrombi, to facilitate separation from cardiopulmonary bypass. and to evaluate cardiac structure and function and assess the surgical intervention post cardiopulmonary bypass. 2. Following decompression of the stomach via an orogastric tube the HELEN probe was passed atraumatically under indirect vision. Diagnostic and monitoring functions were performed. 3. Prebypass: Normal LV funciton with EF-60%. No WMA. No hemodynamically significant valve disease. 4. Postbypass: Normal LV funciton with EF-60%. No WMA. No hemodynamically significant valve disease. 5. Please see the remainder of the report for additional findings. FINDINGS: Left Ventricle ?The left ventricular chamber size is normal. ?Left ventricular wall thickness is normal. ?There is normal global left ventricular systolic function. ?Left ventricular diastolic function is normal. Left Atrium ?The left atrium is normal in size. ?The left atrium is normal in size. ?There is no evidence of spontaneous echo contrast. ?No atrial septal defect is visualized. ?There is no patent foramen ovale visualized. Right Ventricle ?Right ventricular chamber size, wall thickness, and systolic function are within normal limits. ?The right ventricle is normal in size. ?Right ventricular global systolic function is normal. Right Atrium ?The right atrium appears normal. Aortic Valve ?The aortic valve is trileaflet. The leaflets are thin with normal excursion. There is no aortic stenosis or regurgitation present. ?The aortic valve structure is normal. ?There is no evidence of aortic valve thickening. ?No aortic leaflet calcification is visualized. ?There is no evidence of aortic valve stenosis. ?There is no evidence of aortic regurgitation. Mitral Valve ?The mitral valve appears normal in structure and function. ?The mitral valve leaflets appear normal. ?The mitral valve leaflets do not appear thickened. ?No mitral leaflet calcification is visualized. ?There is trace mitral regurgitation present. Tricuspid Valve ?The tricuspid valve appears normal in structure and function. ?There is trace tricuspid regurgitation present. Pulmonic Valve ?The pulmonic valve is not well visualized. Aorta ?The aorta appears normal. ?There is evidence of grade 2 (extensive intimal thickening) atheromatous disease of the ascending aorta. ?There is evidence of grade 2 (extensive intimal thickening) atheromatous disease of the aortic arch. ?There is evidence of grade 2 (extensive intimal thickening) atheromatous disease of the descending thoracic aorta. Wall Motion: Segment Name ?Rest ? Base-Anteroseptal ?? Normal ? Base-Anterior ? Normal ? Base-Anterolateral ??Normal ? Base-Posterolateral Normal ? Base-Inferior ? Normal ? Base-Inferoseptal ?? Normal ? Mid-Anteroseptal ?Normal ? Mid-Anterior ?Normal ? Mid-Anterolateral ?? Normal ? Mid-Posterolateral ??Normal ? Mid-Inferior ?Normal ? Mid-Inferoseptal ?Normal ? [place]-Septal ? Normal ? [place]-Anterior ? Normal ? [place]-Lateral ?Normal ? [place]-Inferior ? Normal ? [place]-Tip ?Normal ? Chambers ?Value ?Units (Range) ? LV EF Est ? 60 ? % (55 to 80) ? This report has been electronically signed by: Rodrigo Montgomery MD ? 01/04/2012 15:48:22 Images reviewed and interpretation verified [facility] Procedure Note Unknown - 01/04/2012 Procedure: Transesophageal Echocardiogram Patient: QUIANA MILLIGAN(Age): () Med Rec#: [id number] Sex: Site Loc: Ht / Wt: (cm)/(kg) Pt. Loc: BSA: Study Date: 01/04/2012 Pt. Type: Tape: Referring: LJD Referring: Alfonso Morales Reading: Rodrigo Montgomery ([id number]) Performing: Rodrigo Montgomery ([id number]) M[employer] Acquis[employer] Attorney: KEVIN Diagnosis:CPT Code(s): Indication(s):Rhythm: SUMMARY: 1. Intraoperative HELEN was performed at the request of Dr. Morales to confirm and quantify cardiovascular conditions and diagnoses, assess the need for additional or alternative surgical procedures, assess appropriateness of cannulation sites and to facilitate their placement, evaluate for the presence of intra-cardiac shunts and thrombi, to facilitate separation from cardiopulmonary bypass. and to evaluate cardiac structure and function and assess the surgical intervention post cardiopulmonary bypass. 2. Following decompression of the stomach via an orogastric tube the HELEN probe was passed atraumatically under indirect vision. Diagnostic and monitoring functions were performed. 3. Prebypass: Normal LV funciton with EF-60%. No WMA. No hemodynamically significant valve disease. 4. Postbypass: Normal LV funciton with EF-60%. No WMA. No hemodynamically significant valve disease. 5. Please see the remainder of the report for additional findings. FINDINGS: Left Ventricle The left ventricular chamber size is normal. Left ventricular wall thickness is normal. There is normal global left ventricular systolic function. Left ventricular diastolic function is normal. Left Atrium The left atrium is normal in size. The left atrium is normal in size. There is no evidence of spontaneous echo contrast. No atrial septal defect is visualized. There is no patent foramen ovale visualized. Right Ventricle Right ventricular chamber size, wall thickness, and systolic function are within normal limits. The right ventricle is normal in size. Right ventricular global systolic function is normal. Right Atrium The right atrium appears normal. Aortic Valve The aortic valve is trileaflet. The leaflets are thin with normal excursion. There is no aortic stenosis or regurgitation present. The aortic valve structure is normal. There is no evidence of aortic valve thickening. No aortic leaflet calcification is visualized. There is no evidence of aortic valve stenosis. There is no evidence of aortic regurgitation. Mitral Valve The mitral valve appears normal in structure and function. The mitral valve leaflets appear normal. The mitral valve leaflets do not appear thickened. No mitral leaflet calcification is visualized. There is trace mitral regurgitation present. Tricuspid Valve The tricuspid valve appears normal in structure and function. There is trace tricuspid regurgitation present. Pulmonic Valve The pulmonic valve is not well visualized. Aorta The aorta appears normal. There is evidence of grade 2 (extensive intimal thickening) atheromatous disease of the ascending aorta. There is evidence of grade 2 (extensive intimal thickening) atheromatous disease of the aortic arch. There is evidence of grade 2 (extensive intimal thickening) atheromatous disease of the descending thoracic aorta. Wall Motion: Segment Name Rest Base-Anteroseptal Normal Base-Anterior Normal Base-Anterolateral Normal Base-Posterolateral Normal Base-Inferior Normal Base-Inferoseptal Normal Mid-Anteroseptal Normal Mid-Anterior Normal Mid-Anterolateral Normal Mid-Posterolateral Normal Mid-Inferior Normal Mid-Inferoseptal Normal [place]-Septal Normal [place]-Anterior Normal [place]-Lateral Normal [place]-Inferior Normal [place]-Tip Normal Chambers Value Units (Range) LV EF Est 60 % (55 to 80) This report has been electronically signed by: Rodrigo Montgomery MD 01/04/2012 15:48:22 Images reviewed and interpretation verified [facility] Unknown ECHO ORDERABLES documented in this encounter Visit Diagnoses Not on filedocumented in this encounter Care Teams Measurer Relationship Specialty Start Date End Date Guanako Gusman MD PCP - General 12/29/11 02/26/19 documented as of this encounter
--- OUTSIDE RECORDS SUMMARY | 2024-07-14 14:37 | XMS_ITS | Encounter Summary ---
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 LIST: Patient Active Problem List Diagnoses ??? Chest pain ??? HTN (hypertension) ??? Hyperlipidemia ??? Depression ??? Narcolepsy ASSESSMENT: Mr. Dixon is a 36 year old man with no prior cardiac history who presented with chest pain, ruled in with positive cardiac enzymes, and underwent cardiac catheterization 12/31. He was found to have 3vdisease and CT surgery plans for CABG Wednesday. He had transient fevers the day of admission, but these have resolved. Blood cultures negative, minor leukocytosis waxing and waning. Received a dose of PCN IM yesterday for group A strep in throat cx. This morning he feels well and is ready for surgery. We will restart his home sertraline and effexor as we see no reason to hold these. # NSTEMI - ASA 325 - Lisinopril 5 mg daily - Metoprolol 25 q6h - Simvastatin 40 mg - Monitor on telemetry - CABG Wednesday # Fevers - Cultures NGTD - Throat cx + for strep - PCN administered, ID has SO'ed # Other - Restarted sertraline/effexor - Continue to hold Adderall # Prophylaxis - DVT: Heparin SQ - GI: Famotidine 20 mg BID FULL CODE Paola Akers PGY 1 Pager [phone] Attending Addendum: I spoke with the patient and his family briefly this am. I agree with the principal findings. The impression and plan incorporate my input. No contraindication to surgery today. Sarthak Pollard MD [facility] pager [phone] * Sarthak Pollard MD - 01/03/2012 11:08 AM EST CARDIOLOGY INPATIENT PROGRESS NOTE Geovanna Dixon Jr. SUMMARY: Geovanna Dixon JrFlorencio is a 36 y.o. male with: NSTEMI, fevers, cath showed severe 3 vessel disease, now being evaluated for CABG Patient Active Problem List Diagnoses Code ??? Chest pain 786.50F ??? HTN (hypertension) 401.9AF ??? Hyperlipidemia 272.4S ??? Depression 311L ??? Narcolepsy 347.00B 24 HOUR EVENTS: - no issues overnight - has no complaints this AM - feeling well, ready for surgery tomorrow TELEMETRY: no events VITALS: Temp: [36.3 ??C (97.3 ??F)-36.8 ??C (98.2 ??F)] Heart Rate: [78-86] Resp: [18] BP: (108-147)/(70-98) SpO2: [96 %-99 %] Patient Vitals in the past 24 hrs: BP Temp Temp src Pulse Resp SpO2 Weight 01/03/12 0646 108/70 mmHg 36.7 ??C (98.1 ??F) Oral 78 18 98 % - 01/03/12 0609 - - - - - - 123.2 kg (271 lb 9.7 oz) 01/03/12 0600 108/70 mmHg - - 78 - - - 01/02/12 2304 109/77 mmHg 36.7 ??C (98.1 ??F) Oral 86 18 96 % - 01/02/12 1935 147/98 mmHg 36.8 ??C (98.2 ??F) Oral 82 - 97 % - 01/02/12 1657 121/78 mmHg 36.6 ??C (97.9 ??F) Oral 80 18 98 % - 01/02/12 1342 113/71 mmHg 36.3 ??C (97.3 ??F) Oral 79 - 99 % - Physical Exam: Constitutional: 36 year old man, NAD Neck: No JVD present. Cardiovascular: Distant heart sounds, RRR, no m/r/g appreciated. 2+ peripheral pulses Pulmonary/Chest: CTAB no wheezes, crackles Abdominal: obese, Soft, non-tender, non-distended Musculoskeletal: He exhibits no edema and no tenderness. Neurological: He is alert and oriented to person, place, and time. Skin: Skin is warm and dry. He is not diaphoretic. No pallor. LABS: Recent Labs Basename 01/03/12 0615 01/02/12 0602 01/01/12 0519 12/30/11 1625 12/29/11 2329 ??? NA 138 139 136 -- -- ??? K 4.1 3.8 3.7 -- -- ??? MAGNESIUM -- -- -- -- 0.83 ??? CALCIUM 9.8 9.5 9.2 -- -- ??? CL 101 101 100 -- -- ??? CO2 25 27 -- -- ??? BUN 10 10 10 -- -- ??? CREATININE 0.77* 0.68* 0.82 -- -- ??? GLUCOSE -- -- -- 126 163 Lab Results Component Value Date/Time HGB 14.1 01/03/12 06:15 AM HGB 13.1* 01/02/12 06:02 AM HGB 13.1* 01/01/12 06:37 PM WBC 12.0* 01/03/12 06:15 AM WBC 10.1* 01/02/12 06:02 AM WBC 11.0* 01/01/12 06:37 PM INR 1.0 12/29/11 11:29 PM PTT 96* 01/03/12 06:15 AM PTT 69* 01/02/12 11:21 PM PTT 53* 01/02/12 05:32 PM Lab Results Component Value Date/Time TROPONINT 0.03 12/30/11 02:08 PM TROPONINT 0.05* 12/30/11 05:45 AM TROPONINT 0.08* 12/29/11 11:29 PM Lab Results Component Value Date/Time CK 72 12/30/11 02:08 PM CK 82 12/30/11 05:45 AM CK 86 12/29/11 11:29 PM Lipid Panel Lab Results Component Value Date CHLPL 170 12/30/2011 HDL 36* 12/30/2011 CHOLHDL 4.7 12/30/2011 TRIG 245* 12/30/2011 LDLDIRECT 110* 12/30/2011 Intake/Output Summary (Last 24 hours) at 01/03/12 1109 Last data filed at 01/03/12 0600 Gross per 24 hour Intake 2103 ml Output 1875 ml Net 228 ml Patient Weight in the past 168 hrs: Weight 01/03/12 0609 123.2 kg (271 lb 9.7 oz) 01/02/12 0607 123 kg (271 lb 2.7 oz) 01/01/12 0600 123.5 kg (272 lb 4.3 oz) 12/31/11 0720 124.6 kg (274 lb 11.1 oz) 12/30/11 0612 124.3 kg (274 lb 0.5 oz) 12/29/11 2102 124.5 kg (274 lb 7.6 oz) MEDICATIONS: Scheduled Meds: ??? penicillin G benzathine 1.2 Million Units Intramuscular Once ??? metoprolol tartrate 25 mg Oral Q6H JOSE ??? sodium chloride 0.9 % 5 mL Intravenous Q12H ??? BMX 5 mL Oral BID ??? protriptyline 10 mg Oral Q8H ??? sodium chloride 0.9 % 5 mL Intravenous Q12H ??? famotidine 20 mg Oral BID ??? aspirin 325 mg Oral Daily ??? lisinopril 5 mg Oral Daily ??? simvastatin 40 mg Oral Daily with dinner Continuous Infusions: ??? heparin 2,850 Units/hr (01/03/12 0800) ??? sodium chloride 0.9% 1,000 mL (12/30/11 0915) ??? sodium chloride 0.9% 30 mL/hr (12/30/11 0955) PRN Meds:.heparin (porcine), sodium chloride 0.9%, fentaNYL (PF), iohexol, atropine, midazolam, nitroGLYcerin, HYDROmorphone, acetaminophen, bisacodyl, DISCONTD: influenza virus vaccine Prescriptions prior to admission Medication Sig Dispense Refill ??? simvastatin (ZOCOR) 20 mg tablet Take 20 mg by mouth nightly. ??? sertraline (ZOLOFT) 50 mg tablet Take 50 mg by mouth daily. ??? omeprazole (PRILOSEC) 20 mg capsule Take 40 mg by mouth daily. ??? protriptyline (VIVACTIL) 5 mg tablet Take 10 mg by mouth every 8 hours. ??? venlafaxine (EFFEXOR) 75 mg tablet Take 75 mg by mouth daily. ??? CIS Free Text Med - ASA (Aspirin) ECHO SUMMARY: 1. The left ventricular chamber size is normal.Left ventricular wall thickness is normal.There are no left ventricular segmental wall motion abnormalities.There is normal global left ventricular systolic function. Ejection fraction is estimated to be 55%.Doppler assessment is consistent with normal left sided filling pressure. 2. Right ventricular chamber size, wall thickness, and systolic function are within normal limits.Pulmonary artery hypertension could not be assessed due to inadequate tricuspid regurgitation jet. 3. There is no hemodynamically significant valve disease. 4. See remainder of report for additional findings. IMAGING: No new studies PROBLEM LIST: Patient Active Problem List Diagnoses ??? Chest pain ??? HTN (hypertension) ??? Hyperlipidemia ??? Depression ??? Narcolepsy ASSESSMENT: Mr. Dixon is a 36 year old man with no prior cardiac history who presented with chest pain, ruled in with positive cardiac enzymes, and underwent cardiac catheterization 12/31. He was found to have 3vdisease and CT surgery plans for CABG Wednesday. He had transient fevers the day of admission, but these have resolved. Cultures negative, minor leukocytosis waxing and waning. Received a dose of PCN IMfor group A strep in throat cx. # NSTEMI - ASA 325 - Lisinopril 5 mg daily - Metoprolol 25 q6h - Simvastatin 40 mg - Heparin gtt until surgery - Monitor on telemetry - CABG Wednesday # Fevers - Cultures NGTD - Throat cx + for strep - PCN administered, ID has SO'ed # Prophylaxis - DVT: Heparin gtt - GI: Famotidine 20 mg BID FULL CODE Attending Addendum: I have interviewed and examined the patient. I agree with the principal findings. The impression and plan incorporate my input. Remains free of angina and heart failure. No bleeding on heparin. Narcolepsy meds (Addarall) on hold due to risk of aggravating CAD. Sarthak Pollard MD [facility] pager [phone] * Bal John MD - 01/02/2012 3:10 PM EST S: Patient reports feeling well. Sore throat improving. Swollen glands decreasing. Denies SOB, denies other pain. O: Temp: [36.3 ??C (97.3 ??F)-37 ??C (98.6 ??F)] Heart Rate: [70-98] Resp: [16] BP: (104-157)/(64-106) Gen: NAD ENT: no tonsillar exudates, erythematous OP Neck: No LAD Labs: WBC 10.1 Cr 0.7 Micro: Blood 2/22: NGTD Throat Cx: + for GAS Assessment: 36 yo male with newly diagnosed triple vessel disease on coronary angio 12/30 , and scheduled CABG was noted to be febrile with leucocytosis. Throat culture has returned positive for Group A Strep, which is the likely source of fever and leukocytosis. We recommend treatment with either oral PCN 500 mg TID for 10 days or a single dose of IM benzathine PCN 1.2 million units x1 dose. Plan: - Either PCN VK 500 mg PO TID x10 days OR Benzathine PCN 1.2 mu IM x1 dose - ID consult will sign off, please call with questions or concerns. ID Attending I interviewed and examined the patient with Dr. Brown. I have reviewed Dr. Brown's note from today and I agree with the details as written. My physical examination confirms his findings. Of note today: Mr. Tomlinson throat feels better. He has been afebrile. Throat red, but no exudate today. Dr. Brown's assessment and plan were formulated after discussion with me at the time of the visit and I agree with them as documented. We suggest treatment with either oral or IV penicillin, as detailed above. Please call for further questions. Addendum (01/03): I made a typographical error, above -- I meant to write either oral or IM penicillin. The IM preparation would be benzathine penicillin, as above. * Sarthak Pollard MD - 01/02/2012 6:13 AM EST CARDIOLOGY INPATIENT PROGRESS NOTE Geovanna Dixon JrFlorencio SUMMARY: Geovanna Dixon Jr. is a 36 y.o. male with: NSTEMI, fevers, cath showed severe 3 vessel disease, now being evaluated for CABG Patient Active Problem List Diagnoses Code ??? Chest pain 786.50F ??? HTN (hypertension) 401.9AF ??? Hyperlipidemia 272.4S ??? Depression 311L ??? Narcolepsy 347.00B 24 HOUR EVENTS: - surgery planned for yesterday, but bumped due to OR time, rescheduled for Wednesday. - will stay on heparin gtt until surgery. - Continues to feel well, no CP, no SOB - WBC count down this am, has been afebrile TELEMETRY: no events VITALS: Temp: [36.6 ??C (97.9 ??F)-37 ??C (98.6 ??F)] Heart Rate: [70-98] Resp: [16] BP: (102-157)/(61-106) SpO2: [93 %-99 %] Patient Vitals in the past 24 hrs: BP Temp Temp src Pulse Resp SpO2 Weight 01/02/12 0742 - 36.6 ??C (97.9 ??F) Oral 70 - 95 % - 01/02/12 0607 - - - - - - 123 kg (271 lb 2.7 oz) 01/02/12 0600 132/106 mmHg - - 72 - - - 01/01/12 2319 119/64 mmHg 36.8 ??C (98.2 ??F) Oral 84 16 98 % - 01/01/122011 109/75 mmHg 36.6 ??C (97.9 ??F) - 76 16 93 % - 01/01/12 1623 157/89 mmHg 37 ??C (98.6 ??F) - 98 16 98 % - 01/01/12 1622 104/71 mmHg 36.6 ??C (97.9 ??F) - 79 16 97 % - 01/01/12 1151 118/61 mmHg - - 81 - - - 01/01/12 1150 112/72 mmHg - - 78 - - - 01/01/12 1149 102/72 mmHg - - 77 - - - 01/01/12 1108 111/79 mmHg 36.9 ??C (98.4 ??F) Oral 75 - 99 % - Physical Exam: Constitutional: 36 year old man, NAD Neck: No JVD present. Cardiovascular: Distant heart sounds, RRR, no m/r/g appreciated. 2+ peripheral pulses Pulmonary/Chest: CTAB no wheezes, crackles Abdominal: obese, Soft, non-tender, non-distended Musculoskeletal: He exhibits no edema and no tenderness. Neurological: He is alert and oriented to person, place, and time. Skin: Skin is warm and dry. He is not diaphoretic. No pallor. LABS: Recent Labs Basename 01/02/12 0602 01/01/12 0519 12/31/11 0338 12/30/11 1625 12/29/11 2329 ??? NA 139 136 133* -- -- ??? K 3.8 3.7 3.4* -- -- ??? MAGNESIUM -- -- -- -- 0.83 ??? CALCIUM 9.5 9.2 9.1 -- -- ??? CL 101 100 98 -- -- ??? CO2 25 27 24 -- -- ??? BUN 10 10 10 -- -- ??? CREATININE 0.68* 0.82 0.76* -- -- ??? GLUCOSE -- -- -- 126 163 Lab Results Component Value Date/Time HGB 13.1* 01/02/12 06:02 AM HGB 13.1* 01/01/12 06:37 PM HGB 12.4* 01/01/12 05:19 AM WBC 10.1* 01/02/12 06:02 AM WBC 11.0* 01/01/12 06:37 PM WBC 15.3* 01/01/12 05:19 AM INR 1.0 12/29/11 11:29 PM PTT 42* 01/02/12 06:02 AM PTT 36* 01/02/12 12:23 AM PTT 32 01/01/12 06:37 PM Lab Results Component Value Date/Time TROPONINT 0.03 12/30/11 02:08 PM TROPONINT 0.05* 12/30/11 05:45 AM TROPONINT 0.08* 12/29/11 11:29 PM Lab Results Component Value Date/Time CK 72 12/30/11 02:08 PM CK 82 12/30/11 05:45 AM CK 86 12/29/11 11:29 PM Lipid Panel Lab Results Component Value Date CHLPL 170 12/30/2011 HDL 36* 12/30/2011 CHOLHDL 4.7 12/30/2011 TRIG 245* 12/30/2011 LDLDIRECT 110* 12/30/2011 Intake/Output Summary (Last 24 hours) at 01/02/12 0806 Last data filed at 01/02/12 0647 Gross per 24 hour Intake 1198.57 ml Output 0 ml Net 1198.57 ml Patient Weight in the past 168 hrs: Weight 01/02/12 0607 123 kg (271 lb 2.7 oz) 01/01/12 0600 123.5 kg (272 lb 4.3 oz) 12/31/11 0720 124.6 kg (274 lb 11.1 oz) 12/30/11 0612 124.3 kg (274 lb 0.5 oz) 12/29/11 2102 124.5 kg (274 lb 7.6 oz) MEDICATIONS: Scheduled Meds: ??? DISCONTD: enoxaparin 40 mg Subcutaneous Q24H JOSE ??? DISCONTD: enoxaparin 1 mg/kg/dose Subcutaneous Q12H JOSE ??? metoprolol tartrate 25 mg Oral Q6H JOSE ??? sodium chloride 0.9 % 5 mL Intravenous Q12H ??? BMX 5 mL Oral BID ??? protriptyline 10 mg Oral Q8H ??? sodium chloride 0.9 % 5 mL Intravenous Q12H ??? famotidine 20 mg Oral BID ??? aspirin 325 mg Oral Daily ??? lisinopril 5 mg Oral Daily ??? simvastatin 40 mg Oral Daily with dinner Continuous Infusions: ??? heparin 1,900 Units/hr (01/02/12 0647) ??? sodium chloride 0.9% 1,000 mL (12/30/11 0915) ??? sodium chloride 0.9% 30 mL/hr (12/30/11 0955) ??? DISCONTD: heparin 2,850 Units/hr (01/01/12 0457) ??? DISCONTD: heparin 1,900 Units/hr (12/30/11 0634) PRN Meds:.heparin (porcine), sodium chloride 0.9%, fentaNYL (PF), iohexol, atropine, midazolam, nitroGLYcerin, HYDROmorphone, DISCONTD: heparin (porcine), influenza virus vaccine, acetaminophen, bisacodyl, DISCONTD: heparin (porcine) Prescriptions prior to admission Medication Sig Dispense Refill ??? simvastatin (ZOCOR) 20 mg tablet Take 20 mg by mouth nightly. ??? sertraline (ZOLOFT) 50 mg tablet Take 50 mg by mouth daily. ??? omeprazole (PRILOSEC) 20 mg capsule Take 40 mg by mouth daily. ??? protriptyline (VIVACTIL) 5 mg tablet Take 10 mg by mouth every 8 hours. ??? venlafaxine (EFFEXOR) 75 mg tablet Take 75 mg by mouth daily. ??? CIS Free Text Med - ASA (Aspirin) ECHO SUMMARY: 1. The left ventricular chamber size is normal.Left ventricular wall thickness is normal.There are no left ventricular segmental wall motion abnormalities.There is normal global left ventricular systolic function. Ejection fraction is estimated to be 55%.Doppler assessment is consistent with normal left sided filling pressure. 2. Right ventricular chamber size, wall thickness, and systolic function are within normal limits.Pulmonary artery hypertension could not be assessed due to inadequate tricuspid regurgitation jet. 3. There is no hemodynamically significant valve disease. 4. See remainder of report for additional findings. IMAGING: No new studies PROBLEM LIST: Patient Active Problem List Diagnoses ??? Chest pain ??? HTN (hypertension) ??? Hyperlipidemia ??? Depression ??? Narcolepsy ASSESSMENT: Mr. Dixon is a 36 year old man with no prior cardiac history who presented with chest pain, ruled in with positive cardiac enzymes, and underwent cardiac catheterization 12/31. He was found to have 3vdisease and CT surgery plans for CABG Wednesday. He had transient fevers the day of admission, but these have resolved. Cultures negative, leukocytosis resolving. # NSTEMI - ASA 325 - Lisinopril 5 mg daily - Metoprolol 25 q6h - Simvastatin 40 mg - Heparin gtt until surgery - Monitor on telemetry - CABG Wednesday # Fevers - Cultures NGTD - Throat cx negative for strep - Appreciate ID recs # Prophylaxis - DVT: Heparin gtt - GI: Famotidine 20 mg BID Cristina Ambriz MD PGY1, Internal Medicine Pager [phone] 01/02/2012 Attending Addendum: I have interviewed and examined the patient. I agree with the principal findings. The impression and plan incorporate my input. As above, doing well. Will keep on heparin until surgery. No angina, HF, bleeding, or evidence of HIT. Sarthak Pollard MD [facility] pager [phone] * Inna Tovar MD - 01/01/2012 3:17 PM EST Please see Dr. Major's note from 12/31/11 for full details. Briefly, Mr. Dixon developed unstable angina and ruled in for DC. Cath shows severe 3 vessel disease. Echo shows EF of 55%. It was decided that he would be best served by CABG. His surgery was scheduled for today, but could not be done. We plan surgery 01/04/12. We had a long discussion regarding the risks and benefits of surgery. The risks include but are notlimited to stroke, damage to any organ (heart, lung, liver, kidneys, brain, etc.), infection, need for blood transfusion with the concomitant risks of AIDS and hepatitis, renal failure resulting in dialysis, prolonged respiratory failure requiring mechanical ventilation, graft failure, and the possibility of . He seems to understand and wishes to proceed. * Sarthak Pollard MD - 01/01/2012 11:06 AM EST CARDIOLOGY INPATIENT PROGRESS NOTE Geovanna Dixon JrFlorencio SUMMARY: Geovanna Dixon Jr. is a 36 y.o. male with: NSTEMI, fevers, cath showed severe 3 vessel disease, now being evaluated for CABG Patient Active Problem List Diagnoses Code ??? Chest pain 786.50F ??? HTN (hypertension) 401.9AF ??? Hyperlipidemia 272.4S ??? Depression 311L ??? Narcolepsy 347.00B 24 HOUR EVENTS: - Continues to feel well, no CP, no SOB - WBC count down this am, has been afebrile - No complaints of sore throat this am - Strep negative TELEMETRY: Sinus tach, 70-105, no events VITALS: Temp: [36.3 ??C (97.3 ??F)-37.1 ??C (98.8 ??F)] Heart Rate: [81-96] Resp: [18-20] BP: (99-125)/(61-80) SpO2: [95 %-98 %] Patient Vitals in the past 24 hrs: BP Temp Temp src Pulse Resp SpO2 Weight 01/01/12 0612 103/71 mmHg 36.8 ??C (98.2 ??F) Oral 81 18 95 % - 01/01/12 0600 - - - - - - 123.5 kg (272 lb 4.3 oz) 01/01/12 0012 112/74 mmHg 36.8 ??C (98.2 ??F) Oral 89 18 97 % - 12/31/11 1934 125/80 mmHg 37.1 ??C (98.8 ??F) Oral 96 20 98 % - 12/31/11 1633 99/61 mmHg 36.6 ??C (97.9 ??F) - 89 18 97 % - 12/31/11 1115 113/73 mmHg 36.3 ??C (97.3 ??F) - 89 18 98 % - Physical Exam: Constitutional: 36 year old man, somnolent, NAD Neck: No JVD present. Cardiovascular: Distant heart sounds, RRR, tachycardic, no m/r/g appreciated. 2+ peripheral pulses Pulmonary/Chest: Distant lung sounds; CTAB no wheezes, crackles Abdominal: Soft, non-tender, non-distended Musculoskeletal: He exhibits no edema and no tenderness. Neurological: He is alert and oriented to person, place, and time. Skin: Skin is warm and dry. He is not diaphoretic. No pallor. LABS: Recent Labs Basename 01/01/12 0519 12/31/11 0338 12/30/11 1625 12/29/11 2329 ??? NA 136 133* -- 134* ??? K 3.7 3.4* -- 3.6 ??? MAGNESIUM -- -- -- 0.83 ??? CALCIUM 9.2 9.1 -- 8.9 ??? CL 100 98 -- 99 ??? CO2 27 24 -- 24 ??? BUN 10 10 -- 13 ??? CREATININE 0.82 0.76* -- 0.82 ??? GLUCOSE -- -- 126 163 Lab Results Component Value Date/Time HGB 12.4* 01/01/12 05:19 AM HGB 13.0* 12/31/11 09:44 AM HGB 13.4* 12/31/11 03:38 AM WBC 15.3* 01/01/12 05:19 AM WBC 20.9* 12/31/11 09:44 AM WBC 19.3* 12/31/11 03:38 AM INR 1.0 12/29/11 11:29 PM PTT 105* 01/01/12 05:19 AM PTT 72* 12/31/11 11:01 PM PTT 66* 12/31/11 04:34 PM Lab Results Component Value Date/Time TROPONINT 0.03 12/30/11 02:08 PM TROPONINT 0.05* 12/30/11 05:45 AM TROPONINT 0.08* 12/29/11 11:29 PM Lab Results Component Value Date/Time CK 72 12/30/11 02:08 PM CK 82 12/30/11 05:45 AM CK 86 12/29/11 11:29 PM Lipid Panel Lab Results Component Value Date CHLPL 170 12/30/2011 HDL 36* 12/30/2011 CHOLHDL 4.7 12/30/2011 TRIG 245* 12/30/2011 LDLDIRECT 110* 12/30/2011 Intake/Output Summary (Last 24 hours) at 01/01/12 1106 Last data filed at 01/01/12 0657 Gross per 24 hour Intake 2030.73 ml Output 2250 ml Net -219.27 ml Patient Weight in the past 168 hrs: Weight 01/01/12 0600 123.5 kg (272 lb 4.3 oz) 12/31/11 0720 124.6 kg (274 lb 11.1 oz) 12/30/11 0612 124.3 kg (274 lb 0.5 oz) 12/29/11 2102 124.5 kg (274 lb 7.6 oz) MEDICATIONS: Scheduled Meds: ??? metoprolol tartrate 25 mg Oral Q6H JOSE ??? potassium chloride 40 mEq Oral Once ??? sodium chloride 0.9 % 5 mL Intravenous Q12H ??? BMX 5 mL Oral BID ??? protriptyline 10 mg Oral Q8H ??? sodium chloride 0.9 % 5 mL Intravenous Q12H ??? famotidine 20 mg Oral BID ??? aspirin 325 mg Oral Daily ??? lisinopril 5 mg Oral Daily ??? simvastatin 40 mg Oral Daily with dinner Continuous Infusions: ??? sodium chloride 0.9% 1,000 mL (12/30/1115) ??? sodium chloride 0.9% 30 mL/hr (12/30/11954) ??? heparin 2,850 Units/hr (01/01/12 0457) ??? heparin 1,900 Units/hr (12/30/11 0634) PRN Meds:.sodium chloride 0.9%, fentaNYL (PF), iohexol, atropine, midazolam, nitroGLYcerin, HYDROmorphone, heparin (porcine), influenza virus vaccine, acetaminophen, bisacodyl, heparin (porcine) Prescriptions prior to admission Medication Sig Dispense Refill ??? simvastatin (ZOCOR) 20 mg tablet Take 20 mg by mouth nightly. ??? sertraline (ZOLOFT) 50 mg tablet Take 50 mg by mouth daily. ??? omeprazole (PRILOSEC) 20 mg capsule Take 40 mg by mouth daily. ??? protriptyline (VIVACTIL) 5 mg tablet Take 10 mg by mouth every 8 hours. ??? venlafaxine (EFFEXOR) 75 mg tablet Take 75 mg by mouth daily. ??? CIS Free Text Med - ASA (Aspirin) ECHO SUMMARY: 1. The left ventricular chamber size is normal.Left ventricular wall thickness is normal.There are no left ventricular segmental wall motion abnormalities.There is normal global left ventricular systolic function. Ejection fraction is estimated to be 55%.Doppler assessment is consistent with normal left sided filling pressure. 2. Right ventricular chamber size, wall thickness, and systolic function are within normal limits.Pulmonary artery hypertension could not be assessed due to inadequate tricuspid regurgitation jet. 3. There is no hemodynamically significant valve disease. 4. See remainder of report for additional findings. IMAGING: Xr Chest Routine Pa & Lateral FINDINGS: There is pleural effusion, pneumothorax, or focal pulmonary consolidation. The lung volumes are low. The cardiomediastinal silhouette and pulmonary vasculature are normal. Limited views of the upper abdomen and bones are normal. IMPRESSION: No acute cardiopulmonary abnormalities. Film and interpretation reviewed by the attending PROBLEM LIST: Patient Active Problem List Diagnoses ??? Chest pain ??? HTN (hypertension) ??? Hyperlipidemia ??? Depression ??? Narcolepsy ASSESSMENT: Mr. Dixon is a 36 year old man with no prior cardiac history who presented with chest pain, ruled in with positive cardiac enzymes, and underwent cardiac catheterization yesterday. He was found to have 3v disease and is scheduled to go for CABG today. He had transient fevers the day of admission into yesterday morning, but these have resolved. Cultures have been negative thus far, and throat cx for strep was negative. He has no localizing signs of infection. His WBC is down to 15 today. Given all of these factors, we feel comfortable sending him to surgery today. # NSTEMI - ASA 325 - Lisinopril 5 mg daily - Metoprolol 25 q6h - Simvastatin 40 mg - Heparin gtt - Monitor on telemetry - CABG today # Fevers - Cultures NGTD - Throat cx negative for strep - Appreciate ID recs # Prophylaxis - DVT: Heparin gtt - GI: Famotidine 20 mg BID Paola Akers PGY 1 Pager [phone] Attending Addendum: I have interviewed and examined the patient. I agree with the principal findings. The impression and plan incorporate my input. He is disappointed that his surgery has been postponed until Wednesday butunderstands. He remains cp free. I've reviewed his angiograms and believe he needs to stay on heparin until surgery. All questions answered. Sarthak Pollard MD [facility] pager [phone] * Andi Rene MD - 12/31/2011 5:20 PM EST CARDIOLOGY INPATIENT PROGRESS NOTE Geovanna Dixon Jr. SUMMARY: Geovanna Dixon Jr. is a 36 y.o. male with: NSTEMI, fevers, cath showed severe 3 vessel disease, now being evaluated for CABG Patient Active Problem List Diagnoses Code ??? Chest pain 786.50F ??? HTN (hypertension) 401.9AF ??? Hyperlipidemia 272.4S ??? Depression 311L ??? Narcolepsy 347.00B 24 HOUR EVENTS: - Admitted yesterday for chest pain as a transfer from [facility] - Cardiac cath yesterday showed significant 3 vessel disease - Evaluated by CTS, will undergo CABG - Fever up to 38.5 overnight; cultures drawn TELEMETRY: Sinus tach, 90-110, no events VITALS: Temp: [36.3 ??C (97.3 ??F)-38.5 ??C (101.3 ??F)] Heart Rate: [84-118]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 apply candice wraps during the day andremove at bedtime. Elevate your legs when you are sitting. Follow up appointments: You should arrange to see your primary care physician, PATRIC AL MD, in two weeks. You will return to clinic to see Dr. Inna Tovar in 4 weeks and will have a CXR and EKG at that time. A letter with the details of this appointment will be mailed to you. Cardiac Rehabilitation: Geovanna Llanos [facility] was seen regarding participation in outpatient Phase 2 Card[facility] . A referral will be sent to this program. He was given contact information and shouldexpect to be contacted by the program within 1-2 weeks after discharge from [facility]. Arrangements for VNA/home care: PATIENT'S LOCATION: [facility] [address] [place] [address] [place] [address] There is no home phone number on file. Telephone Information: In discussion with the attending physician, it is certified that this patient is under their care and that they, or a nurse practitioner, clinical nurse specialist or physician's team assistant who is working directly with them, had a face to face encounter that meets the physician face to face encounter requirements with this patient on 01/08/2012 The encounter with the patient was in whole, or in part, for the following medical condition, whichis the primary reason for home health care services: Coronary Artery Bypass grafting Surgery. In discussion with the provider, it is certified that, based on their findings, the following services are medically necessary for home health services. To provide the following care/treatments with the clinical findings supporting the need for services as follows: HOME HEALTH AGENCY: [facility]. PHONE: [phone] FAX: [phone] RN orders: Cardiopulmonary assessment, incisional assessment, assess vital signs, assessment of rehab progress, medication management and effectiveness, home safety evaluation PT ORDERS: Continue rehab for endurance, gait stability and strength with mobility and transfers. Home safety evaluation. Home exercise program if appropriate. Start of Care Date: Within 24 hours following discharge SPECIAL INSTRUCTIONS: For any follow up questions, needs, or issues please call the Cardiac SurgeryOffice at [phone] FOR MEDICARE ONLY: (please delete this section if not Medicare) In discussion with the attending physician, it is certified that the clinical findings support thatthis patient is homebound (i.e. absences from home require considerable and taxing effort and are for medical reasons or taoism services of infrequently or of short duration when for other reasons) Home Health agencies which cover the area of patient's residence have been reviewed, either verbally or in writing, and patient/family have chosen the agency as noted. In discussion with the attending physician, it is certified that this patient is under their care and that they, or a nurse practitioner, clinical nurse specialist or physician's team assistant who is working directly with them, had a face to face encounter that meets the physician face to face encounter requirements with this patient on 01/08/2012. The encounter with the patient was in whole, or in part, for the following medical condition, whichis the primary reason for home health care services: [ CABG ] In discussion with the primary medical team, it is certified that, based on their findings, the indicated services are medically necessary and appropriate for home health services. FOR MEDICARE ONLY: (please delete this section if not Medicare) In discussion with the attending physician, it is certified that the clinical findings support thatthis patient is homebound (i.e. absences from home require considerable and taxing effort and are for medical reasons or taoism services of infrequently or of short duration when for other reasons) Please note that any additional orders needs or changes will need to be obtained from this patient's PCP: PATRIC AL MD [phone] All VNA agencies which cover the area of patient's residence have been reviewed, either verbally feli writing, and patient/family have chosen the indicated home health care agency for home services. Comments: Questions: Responses: Agency name and contact information [facility] Patient location post discharge home What services are requested Start date 01/10/2012 Responsible MD post discharge contact info PCP RN to remove chest tube sutures on or after 01/13/12. Signed: Ricky Graham PA-C [facility] Section of Cardiothoracic Surgery Date: 01/08/12 CC: MD CARLOS MENDEZ [facility] EMERGENCY DEPT [address] [place] [address] [place] [address] * Op Note - Inna Tovar MD - 01/04/2012 3:55 PM EST [facility] Operative Note Patient Name: Geovanna Dixon Jr. : [id number] MR#: [id number] Case Date: 01/04/2012 Surgeon: Surgeon(s) and Role: * INNA TOVAR MD - Primary * JUSTIN ZUNIGA - Resident-Lesser Role Pre-op Diagnosis: Coronary Artery Disease Post-operative Diagnosis: Coronary Artery Disease Procedure: Coronary artery bypass grafting x 2 (Left internal mammary artery to the LAD, saphenous vein graft to the PDA) with endoscopic vein harvest. Indications: Mr. Dixon was admitted with NSTEMI. Cath showed 99% stenosis of the LAD at a bifurcation of a largediagonal branch, 95% stenosis of the distal Circumflex, and stenosis of the distal RCA. It was decided to proceed with CABG. Findings: The heart was slightly enlarged. There was diffuse disease in all [place] vessels. The OFELIA and vein were of excellent quality. The lungs had early emphysematous changes. Procedure Details: The patient was brought to the operating room and given general anesthesia. A [place]-Haley catheter, radial arterial line, and Mendez catheter were used for monitoring. The patient wasprepped and draped in the usual sterile manner. A midline sternotomy incision was made and carried down through the subcutaneous tissue. The sternum was bisected. The left internal mammary artery washarvested from the chest wall using electrocautery and hemoclips. Simultaneously, a segment of saphenous vein was harvested endoscpically from the right leg. The patient was then systemically heparinized. A thymic flap was made. Two concentric 3-0 Prolene pursestring sutures were placed in the ascending aorta for arterial cannulation. A single 4-0 Prolene pursestring suture was placed in the right atrial appendage for venous cannulation. A combination aortic root vent and cardioplegia cannula was placed in the ascending aorta. A retrograde cardioplegia cannula was placed in the coronary sinusvia the right atrium. The patient was then placed on cardiopulmonary bypass. The target vessels were inspected and found to be of adequate quality and caliber. An insulating pad was placed behind theheart. The aorta was crossclamped and 1,500 cc of cold cardioplegia was given. There was an excellent arrest of the heart. Topical iced saline slush was used to help cool the heart. A segment of saphenous vein was sewn to the PDA and the ascending aorta. Cold cardioplegia was given. The internal mammary artery was anastomosed to the left anterior descending artery. Warm cardioplegia was given followed by warm blood. The heart began to fibrillate and was countershocked to normal sinus rhythm. The crossclamp was removed. Atrial and ventricular pacing wires were placed on the heart and brought out through the skin.The lungs were reinflated and the patient easily from cardiopulmonary bypass. The venous cannula was removed and the heparin reversed with protamine. The arterial cannula was then removed. A fter inspection for adequate hemostasis, two #28 [place] chest tubes were placed and brought out through separate stab incisions. The sternum was reapproximated with four figure of eight stainless steel cables. The subcutaneous tissue was closed in layers of running 0 Vicryl suture. The skin edges were approximated with a running 4-0 Monocryl suture. The patient tolerated the procedure well and was taken to the Cardiovascular Critical Care Unit in stable condition. Total crossclamp time was 39 minutes. Total bypass time at normothermia was 52 minutes. * Brief Op Note - Inna Tovar MD - 01/04/2012 3:52 PM EST Brief Operative Note Patient Name: Geovanna Dixon Jr. : [id number] MR#: [id number] Case Date: 01/04/2012 Surgeon: Surgeon(s) and Role: * INNA TOVAR MD - Primary * JUSTIN ZUNIGA - Resident-Lesser Role Preoperative diagnosis: Coronary Artery Disease Postoperative diagnosis: Coronary Artery Disease Procedure(s): ENDOSCOPIC VEIN HARVEST CABG X 2 (HOLLEY-LAD, SVG-PDA) Anesthesia: General Estimated Blood Loss: Cell Saver Used Findings: Heart slightly enlarged. Diffuse disease in vessels. OFELIA, vein excellent. Lungs with early emphysematous changes. Crossclamp 39 min, bypass 52 min. * OR Attestation - Inna Tovar MD - 01/04/2012 3:52 PM EST Attestation: Case Date: 01/04/2012 I performed this procedure without the involvement of a resident. INNA TOVAR MD 01/04/2012 * Consult Note - Darcie Watts MD - 12/31/2011 2:09 PM EST INFECTIOUS DISEASE FELLOW INPATIENT CONSULT NOTE Reason for Consult: We are seeing Geovanna Dixon Jr. at the request of Dr Rene for the evaluation of fever and leucocytosis Admission date: 12/29/2011 HPI: Geovanna Dixon Jr. is a 36 y.o. male with h/o Htn, Hld and nicotine dependence transferred from H for evaluation of left sided CP , and was noted to have NSTEMI for which he had coronary angiographyon 12/30 which demonstrated triple vessel disease , for which he is scheduled for CABG either tomorrow or Wednesday . Patient is noted to be febrile and has leucocytosis without obvious focal source of infection, so ID consultation is requested for further ID related work up and timing of surgery . Patient reports to be doing well , except for 5 days prior to his presentation when he started feeling exertional CP radiating to left neck and arm , associated with nausea and increased migraine headaches . Denies any fever , chills, URI , significant cough , abdominal pain, or vomiting . Has an episode of loose stools few days ago without any blood in it . No c/o skin rashes or joint swellings . Now c/o sore throat starting yesterday , with out any cough , nasal drainage . Patient says that his granddaughter (infant) was diagnosed with pna few weeks ago , but denies any other sick contacts . ROS: As per HPI Past Medical History Diagnosis Date ??? Hypertension ??? Hyperlipidemia ??? Narcolepsy ??? Depression ??? Obesity There is no immunization history for the selected administration types on file for this patient. No Known Allergies Pertinent Medications: Not on any antibiotics History Social History ??? Marital Status: Spouse Name: N/A Number of Children: N/A ??? Years of Education: N/A Occupational History ??? Not on file. Social History Main Topics ??? Smoking status: Current Everyday Smoker -- 1.0 packs/day for 25 years Types: Cigarettes ??? Smokeless tobacco: Not on file ??? Alcohol Use: No ??? Drug Use: No ??? Sexually Active: Other Topics Concern ??? Not on file Social History Narrative ??? 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 No recent out door activities or significant exposures Other Social and Family Hx reviewed . Physical Exam: Last value Range last 48 hrs Temperature Temp: 36.3 ??C (97.3 ??F) Temp: [36.3 ??C (97.3 ??F)-38.5 ??C (101.3 ??F)] Heart Rate Heart Rate: 89 Heart Rate: [84-118] Blood Pressure BP: 113/73 mmHg BP: (100-153)/(60-95) Respiratory Rate Resp: 18 Resp: [15-27] SpO2 SpO2: 98 % SpO2: [93 %-99 %] Gen: Alert, no apparent distress HEENT: Pharyngeal erythema with left tonsillar exudate , no sinus tenderness Neck: No palpable cervical lymphadenopathy Lungs: B/l CTA , no crepitations CVS: S1, S2, no M/R/G GI: Soft, ND,NT, Bowel sounds-audible. Neuro: Grossly non focal Extremities: No edema, no rash, no stigmata of endocarditis Lines: Peripheral IV Lab Results Component Value Date WBC 20.9* 12/31/2011 RBC 4.30* 12/31/2011 HGB 13.0* 12/31/2011 HCT 38.4* 12/31/2011 MCV 89.3 12/31/2011 MCH 30.2 12/31/2011 MCHC 33.9 12/31/2011 PLATELET 236 12/31/2011 RDWCV 13.1 12/31/2011 Lab Results Component Value Date NA 133* 12/31/2011 K 3.4* 12/31/2011 CL 98 12/31/2011 CO2 24 12/31/2011 Lab Results Component Value Date BUN 10 12/31/2011 CREATININE 0.76* 12/31/2011 Lab Results Component Value Date ALT 26 12/29/2011 AST 18 12/29/2011 ALKPHOS 83 12/29/2011 BILITOT 0.3 12/29/2011 Laboratory Data (Reviewed) WBC - 18--->22.. >20 Unremarkable CMP Radiology : (Reviewed) CXR - no acute infiltrate Microbiology :(Reviewed) Blood Cx 12/30 - pending UA - Unremarkable HIV - negative Impression: Geovanna Dixon Jr. is a 36 y.o. male with newly diagnosed triple vessel disease on coronary angio 12/30 , and scheduled CABG is noted to be febrile with leucocytosis . Likely possibilities include Stepvs viral pharyngitis (considering his symptoms) vs infectious complications related to recent proced ure . So would recommend to check for rapid strep as well as obtain throat cultures and viral DFA . Would recommend await above said study results , afebrile status and at least 48 hrs negative bloodcultures before proceeding with surgery , if not urgent . Recommendation: - Check for Rapid strep throat - Throat cultures - Obtain resp viral DFA - F/u results and blood cultures results D/w Dr Watts Above recommendations discussed with the primary team . Consult service will continue to follow. Michelle Ortiz MD. Fellow, Infectious Disease ID ATTENDING ADDENDUM I have reviewed the history and interviewed and examined the patient with Dr. Ortiz. We reviewed the labs and radiographic and echo studies together. I agree with her summary of our findings as outlined above. The patient has unexplained fever with onset after cath, along with leukocytosis which was present on admission. Our review of his history and physical exam turned up complaints of a sore throat (new) and some sinus congestion, and scant exudative pharyngitis on exam, with recent exposure to infantgrandaphneter who had pneumonia. The patient denies rigors, cough, myalgia but admits to headache which he associates with reducing his caffeine intake recently. He has not had flu vaccine. Other than his throat there are no focal signs suggesting a source of infection. It's possible he has strep throat, although viral infection is probably more likely. (Leukocytosis may be r/t stress of DC.) Bacteremia as a complication of his cath, or current peripheral IV is also possible. Given the possibility of strep infection, we would recommend postponing surgery unless it is considered urgent/emergent by the Cardiology team, until this can be ruled in or out, and blood cultures can have at least 48 hours to incubate. I agree with the recs above to culture the throat and search for viralpathogens, and note that blood cultures are already underway. He should get a flu vaccine, but it can wait until the time of discharge following surgery. We will follow up on the cultures when available. /KK * Plan of Care - Penny Cedeño - 12/29/2011 10:39 PM EST Problem: Pain, Acute (Adult, Obstetric) Intervention: Acute Pain: Signs and Symptoms Patient A&O. Arrived on unit without reports of chest pain or shortness of breath. Tele on. Vitals completed. Patient oriented to room. Call saucedo within reach. Patient reports pain in right groin area and reports a headache. MD aware. Will continue to monitor. * Miscellaneous - Provider, Scanning - 12/29/2011 10:32 PM EST * Miscellaneous - Provider, Scanning - 12/29/2011 10:32 PM EST documented in this encounter Plan of Treatment Scheduled Referrals Name Type Priority Associated Diagnoses Orde r Schedule REFERRAL TO CARDIAC REHAB Outpatient Referral Routine Chest pain Ordered: 01/08/2012 documented as of this encounter Procedures Procedure Name Priority Date/Time Associated Diagnosis Comments CARDIAC CATHETERIZATION Routine 01/11/20 12 11:04 AM EST LAB SCAN 01/10/2012 1:46 PM EST DRIVER RECRUITER SCAN 01/10/2012 1:46 PM EST CARDIAC CATH SCAN 01/10/2012 1:4 6 PM EST POCT GLUCOSE Routine 01/08/2012 12:00 PM EST POTASSIUM Routine 01/08/2012 10:05 AM EST POCT GLUCOSE Routine 01/08/2012 7:21 AM EST POCT GLUCOSE Routine 01/07/2012 8:43 PM EST POCT GLUCOSE Routine 01/07/2012 4:47 PM EST POTASSIUM Routine 01/07/2012 11:42 AM EST POCT GLUCOSE Routine 01/07/2012 11:41 AM EST XR CHEST PA AND LATERAL Routine 01/07/20 12 8:32 AM EST POCT GLUCOSE Routine 01/07/2012 8:00 AM EST DIFFERENTIAL, AUTOMATED Routine 01/07/20 12 4:11 AM EST CBC (WITH DIFF) Routine 01/07/2012 4:11 AM EST BASIC METABOLIC PANEL Routine 01/07/2012 4:11 AM EST U ALBUMIN/CRE RATIO Timed 01/06/2012 9 :03 PM EST POCT GLUCOSE Routine 01/06/2012 7:46 PM EST POCT GLUCOSE Routine 01/06/2012 4:24 PM EST POCT GLUCOSE Routine 01/06/2012 12:06 PM EST POTASSIUM Routine 01/06/2012 9:59 AM EST POCT GLUCOSE Routine 01/06/2012 6:53 AM EST POCT GLUCOSE Routine 01/06/2012 5:03 AM EST POCT GLUCOSE Routine 01/06/2012 3:16 AM EST POCT GLUCOSE Routine 01/06/2012 1:12 AM EST POCT GLUCOSE Routine 01/05/2012 11:52 PM EST POCT GLUCOSE Routine 01/05/2012 10:54 PM EST POCT GLUCOSE Routine 01/05/2012 9:51 PM EST POCT GLUCOSE Routine 01/05/2012 8:50 PM EST POCT GLUCOSE Routine 01/05/2012 8:07 PM EST POCT GLUCOSE Routine 01/05/2012 6:57 PM EST POCT GLUCOSE Routine 01/05/2012 4:59 PM EST POCT GLUCOSE Routine 01/05/2012 1:05 PM EST POCT GLUCOSE Routine 01/05/2012 12:42 PM EST POCT GLUCOSE Routine 01/05/2012 9:54 AM EST POCT GLUCOSE Routine 01/05/2012 8:00 AM EST ENDOSCOPIC HARVEST VEIN(S) FOR CABG Routine 01/05/2012 7:42 AM EST @CABG,VENOUS & ARTERIAL GRAFT;SINGLE VEIN GRAFT Routine 01/05/2012 7:42 AM EST POCT GLUCOSE Routine 01/05/2012 5:58 AM EST POCT GLUCOSE Routine 01/05/2012 4:12 AM EST POCT GLUCOSE Routine 01/05/2012 2:05 AM EST DIFFERENTIAL, AUTOMATED Routine 01/05/20 12 2:00 AM EST CARDIAC ENZYMES ([facility]P) Routine 01/05/2012 2:00 AM EST CREATININE Routine 01/05/2012 2:00 AM EST CBC (WITH DIFF) Routine 01/05/2012 2:00 AM EST BUN Routine 01/05/2012 2:00 AM EST POTASSIUM Routine 01/05/2012 2:00 AM EST GLUCOSE, FASTING Routine 01/05/2012 2:00 AM EST POCT GLUCOSE Routine 01/04/2012 11:58 PM EST POCT GLUCOSE Routine 01/04/2012 9:00 PM EST HEMOGLOBIN Routine 01/04/2012 9:00 PM EST POTASSIUM Routine 01/04/2012 9:00 PM EST GLUCOSE Routine 01/04/2012 9:00 PM EST BLOOD GAS ARTERIAL POC Routine 2 6:47 PM EST BLOOD GAS ARTERIAL POC Routine 2 6:21 PM EST ENDOTRACHEAL TUBE POSITION CHANGE Routine 01/04/2012 5:08 PM EST XR CHEST ONE VIEW Routine 01/04/2012 4:4 3 PM EST BLOOD GAS ARTERIAL POC Routine 2 4:30 PM EST EKG 12-LEAD STAT 01/04/2012 4:26 PM EST Chest pain BLOOD GAS ARTERIAL POC Routine 2 3:28 PM EST DIFFERENTIAL, AUTOMATED STAT 01/04/20 12 3:28 PM EST APTT STAT 01/04/2012 3:28 PM EST THROMBIN TIME STAT 01/04/2012 3:28 PM EST PROTHROMBIN TIME STAT 01/04/2012 3:28 PM EST FIBRINOGEN STAT 01/04/2012 3:28 PM EST CBC (WITH DIFF) STAT 01/04/2012 3:28 PM EST BLOOD GAS ARTERIAL POC Routine 2 2:28 PM EST FIBRINOGEN STAT 01/04/2012 2:25 PM EST PLATELET COUNT STAT 01/04/2012 2:25 PM EST BLOOD GAS ARTERIAL POC Routine 2 12:59 PM EST @CABG, VENOUS & ARTERIAL GRAFT;SINGLE VEIN GRAFT (WRVU 3.61) 01/04/2012 12:05 PM EST Coronary Artery Disease ENDOSCOPIC HARVEST VEIN(S) FOR CABG (WRVU 0.31) 01/04/2012 12:05 PM EST Coronary Artery Disease PREPARE COAG FACTORS (NON-HEMOPHILIA) STAT 01/04/2012 12:05 PM EST PREPARE RBC STAT 01/04/2012 12:05 PM EST BMP W/FASTING GLUCOSE Routine 01/04/2012 4:40 AM EST DIFFERENTIAL, MANUAL Routine 01/04/2012 4:40 AM EST APTT STAT 01/04/2012 4:40 AM EST CBC (WITH DIFF) Routine 01/04/2012 4:40 AM EST APTT STAT 01/03/2012 7:38 PM EST APTT STAT 01/03/2012 12:17 PM EST BMP W/FASTING GLUCOSE Routine 01/03/2012 6:15 AM EST DIFFERENTIAL, MANUAL Routine 01/03/2012 6:15 AM EST ABO/RH TYPING Routine 01/03/2012 6:15 AM EST APTT STAT 01/03/2012 6:15 AM EST CBC (WITH DIFF) Routine 01/03/2012 6:15 AM EST ANTIBODY SCREEN Routine 01/03/2012 6:15 AM EST APTT STAT 01/02/2012 11:21 PM EST TYPE AND SCREEN ([facility]/BABITA) Routine 01/02/2012 11:00 PM EST APTT STAT 01/02/2012 5:32 PM EST APTT STAT 01/02/2012 11:56 AM EST BMP W/FASTING GLUCOSE Routine 01/02/2012 6:02 AM EST DIFFERENTIAL, AUTOMATED Routine 01/02/20 12 6:02 AM EST APTT STAT 01/02/2012 6:02 AM EST CBC (WITH DIFF) Routine 01/02/2012 6:02 AM EST APTT STAT 01/02/2012 12:23 AM EST DIFFERENTIAL, AUTOMATED Routine 01/01/20 12 6:37 PM EST APTT STAT 01/01/2012 6:37 PM EST CBC (WITH DIFF) Routine 01/01/2012 6:37 PM EST POCT GLUCOSE Routine 01/01/2012 12:02 PM EST APTT STAT 01/01/2012 11:59 AM EST XR CHEST PA AND LATERAL STAT 01/01/20 11:30 AM EST BMP W/FASTING GLUCOSE Routine 01/01/2012 5:19 AM EST DIFFERENTIAL, AUTOMATED Routine 01/01/20 12 5:19 AM EST APTT STAT 01/01/2012 5:19 AM EST CBC (WITH DIFF) Routine 01/01/2012 5:19 AM EST APTT STAT 12/31/2011 11:01 PM EST UPPER RESPIRATORY CULTURE Routine 12/31/2011 9:55 PM EST APTT STAT 12/31/2011 4:34 PM EST DUPLEX FOR DVT BILAT LEGS Routine 12/31/2011 11:07 AM EST PATHOLOGY SLIDE REVIEW Routine 2 10:39 AM EST PATHOLOGY SLIDE REVIEW Routine 2 9:44 AM EST DIFFERENTIAL, MANUAL Routine 12/31/2011 9:44 AM EST DIFFERENTIAL, AUTOMATED Routine 12/31/19 12 9:44 AM EST APTT STAT 12/31/2011 9:44 AM EST CBC (WITH DIFF) Routine 12/31/2011 9:44 AM EST LACTATE DEHYDROGENASE Routine 12/31/2011 9:44 AM EST BMP W/FASTING GLUCOSE Routine 12/31/2011 3:38 AM EST DIFFERENTIAL, AUTOMATED Routine 12/31/19 12 3:38 AM EST APTT STAT 12/31/2011 3:38 AM EST CBC (WITH DIFF) Routine 12/31/2011 3:38 AM EST APTT STAT 12/30/2011 9:02 PM EST EKG 12-LEAD STAT 12/30/2011 5:24 PM EST Chest pain BLOOD CULTURE STAT 12/30/2011 5:04 PM EST BLOOD CULTURE STAT 12/30/2011 4:51 PM EST DIFFERENTIAL, AUTOMATED Routine 12/30/19 12 4:25 PM EST ABO/RH TYPING Routine 12/30/2011 4:25 PM EST CBC (WITH DIFF) Routine 12/30/2011 4:25 PM EST ANTIBODY SCREEN Routine 12/30/2011 4:25 PM EST GLUCOSE Routine 12/30/2011 4:25 PM EST TYPE AND SCREEN ([facility]/BABITA) Routine 12/30/2011 4:14 PM EST CARDIAC ENZYMES ([facility]) STAT 12/30/2011 2:08 PM EST APTT STAT 12/30/2011 2:08 PM EST HIV SCREEN, 4TH GENERATION ([facility]/CGP/APD/NLH) Routine 12/30/2011 10:18 AM EST ECHOCARDIOGRAM TRANSTHORACIC Routine 12/30/2011 9:47 AM EST Chest pain CARDIAC CATHETERIZATION 12/30/19 12 9:38 AM EST CHEST PAIN RAPID DRUG SCREEN W/O CONFIRMATION, URINE Routine 12/30/2011 9:32 AM EST URINALYSIS WITH REFLEX CULTURE Routine 12/30/2011 9:32 AM EST URINE CULTURE Routine 12/30/2011 9:31 AM EST DIFFERENTIAL, AUTOMATED Routine 12/30/19 7:07 AM EST CBC (WITH DIFF) Routine 12/30/2011 7:07 AM EST HEMOGLOBIN A1C Routine 12/30/2011 7:07 AM EST CARDIAC [facility] [place] STAT 12/30/2011 5:45 AM EST APTT STAT 12/30/2011 5:45 AM EST TRIGLYCERIDE Routine 12/30/2011 5:45 AM EST LDL CHOLESTEROL, DIRECT Routine 12/30/19 12 5:45 AM EST HDL/CHOL PROFILE Routine 12/30/2011 5:45 AM EST GLUCOSE, FASTING Routine 12/30/2011 5:45 AM EST XR CHEST PA AND LATERAL Routine 12/29/19 12 11:59 PM EST SCAN, PERIPHERAL BLOOD STAT 2 11:29 PM EST DIFFERENTIAL, AUTOMATED STAT 12/29/19 12 11:29 PM EST CARDIAC ENZYMES ([facility] STAT 12/29/2011 11:29 PM EST APTT STAT 12/29/2011 11:29 PM EST PROTHROMBIN TIME STAT 12/29/2011 11:2 9 PM EST CBC (WITH DIFF) STAT 12/29/2011 11:29 PM EST TSH STAT 12/29/2011 11:29 PM EST PHOSPHORUS STAT 12/29/2011 11:29 PM EST PRO-BRAIN NATRIURETIC PEPTIDE STAT 12/29/2011 11:29 PM EST MAGNESIUM STAT 12/29/2011 11:29 PM EST HEPATIC FUNCTION PANEL STAT 2 11:29 PM EST BASIC METABOLIC PANEL STAT 12/29/2011 11:29 PM EST EKG 12-LEAD STAT 12/29/2011 11:13 PM EST Chest pain documented in this encounter Results * EKG 12 Lead (02/09/2012 10:55 AM EDT) Ventricular rate 102 BPM MUSE SYSTEM Atrial Rate 102 BPM MUSE SYSTEM P-R Interval 156 ms MUSE SYSTEM QRS Duration 96 ms MUSE SYSTEM Q-T Interval 348 ms MUSE SYSTEM QTC Calculated (Bezet) 453 ms MUSE SYSTEM Calculated P Stafford 41 degrees MUSE SYSTEM Calculated R Stafford 25 degrees MUSE SYSTEM Calculated T Stafford 74 degrees MUSE SYSTEM INTERPRETATION Sinus tachycardia Inferior infarct , age undetermined Nonspecific T wave abnormality Abnormal ECG When compared with ECG of 04-JAN-2012 16:26, Inferior infarct is now Present Inverted T waves have replaced nonspecific T wave abnormality in Anterior leads Confirmed by MD DELMIS, SARTHAK ([id number]) on 02/09/2012 4:00:55 PM MUSE SYSTEM 02/09/2012 10:5 5 AM EDT 02/09/2012 4:00 PM EDT Inna Tovar MD ECG ORDERABLES MUSE SYSTEM * Cardiac Catheterization (01/11/2012 11:04 AM EST) Anatomical Region Laterality Modality Other Andi Rene MD CARDIAC CATH ORDERAB LES * SCAN DOC: LAB (01/10/2012 1:46 PM EST) Narrative 01/10/2012 1:46 PM EST Procedure Note Provider, Scanning - 01/10/2012 1:46 PM EST Scanning Provider MEDIA MGR SCAN EXT O RDR/RSLT * SCAN DOC: CARDIAC CATH (01/10/2012 1:46 PM EST) Anatomical Region Laterality Modality Other Narrative 01/11/2012 8:32 AM EST Procedure Note Provider, Scanning - 01/10/2012 1:46 PM EST Scanning Provider MEDIA MGR SCAN EXT O RDR/RSLT * SCAN DOC: DRIVER RECRUITER (01/10/2012 1:46 PM EST) Anatomical Region Laterality Modality Other Narrative 01/11/2012 8:32 AM EST Procedure Note Provider, Scanning - 01/10/2012 1:46 PM EST Scanning Provider MEDIA MGR SCAN EXT O RDR/RSLT * POCT GLUCOSE LAB USE ONLY (01/08/2012 12:00 PM EST) [facility] Glucose, POC 106 60 - 199 mg/dL CERNER MILLENNIUM Comment: Supplemental ranges: <110 mg/dL before meals <200 mg/dL all other times of the day Blood specimen (specimen) 01/08/2012 12:00 PM EST 01/08/2012 12:00 PM EST Andi Rene MD POINT OF CARE TEST O RDERABLES CERNER MILLENNIUM * Potassium (01/08/2012 10:05 AM EST) Potassium 4.2 3.5 - 5.0 mmol/L [facility] Comment: Please note: ??Patients with WBC >100,000 may have falsely elevated Potassium levels. ??For accurate Potassium quantification in these patients send serum separator tube (gold top) for subsequent determinations. ??Contact the Clinical Chemistry Laboratory if there are any questions. Blood specimen (specimen) 01/08/2012 10:05 AM EST 01/08/2012 10:27 AM EST Narrative Resulting Agency Comment Spec In Lab Inna Tovar MD CHEMISTRY ORDERABLES Performing Organization Address [facility] Phone Number [facility] * POCT GLUCOSE LAB USE ONLY (01/08/2012 7:21 AM EST) Glucose, POC 144 60 - 199 mg/dL [facility] Comment: Supplemental ranges: <110 mg/dL before meals <200 mg/dL all other times of the day Blood specimen (specimen) 01/08/2012 7:21 AM EST 01/08/2012 7:21 AM EST Andi Rene MD POINT OF CARE TEST O RDERAHERNANDEZ Performing Organization Address [facility] Phone Number [facility] * POCT GLUCOSE LAB USE ONLY (01/07/2012 8:43 PM EST) Glucose, POC 179 60 - 199 mg/dL [facility] Comment: Supplemental ranges: <110 mg/dL before meals <200 mg/dL all other times of the day Blood specimen (specimen) 01/07/2012 8:43 PM EST 01/07/2012 8:43 PM EST Andi Rene MD POINT OF CARE TEST O RDERAHERNANDEZ Performing Organization Address [facility] Phone Number [facility] * POCT GLUCOSE LAB USE ONLY (01/07/2012 4:47 PM EST) Glucose, POC 128 60 - 199 mg/dL [facility] Comment: Supplemental ranges: <110 mg/dL before meals <200 mg/dL all other times of the day Blood specimen (specimen) 01/07/2012 4:47 PM EST 01/07/2012 4:47 PM EST Andi Rene MD POINT OF CARE TEST Stephanie VO Performing Organization Address [facility] Phone Number [facility] * Potassium (01/07/2012 11:42 AM EST) [facility] Potassium 3.6 3.5 - 5.0 mmol/L [facility] Comment: Please note: ??Patients with WBC >100,000 may have falsely elevated Potassium levels. ??For accurate Potassium quantification in these patients send serum separator tube (gold top) for subsequent determinations. ??Contact the Clinical Chemistry Laboratory if there are any questions. Blood specimen (specimen) 01/07/2012 11:42 AM EST 01/07/2012 11:52 AM EST Narrative Resulting Agency Comment Spec In Lab Inna Tovar MD CHEMISTRY ORDERABLES Performing Organization Address [facility] Phone Number [facility] * POCT GLUCOSE LAB USE ONLY (01/07/2012 11:41 AM EST) Glucose, POC 114 60 - 199 mg/dL [facility] Comment: Supplemental ranges: <110 mg/dL before meals <200 mg/dL all other times of the day Blood specimen (specimen) 01/07/2012 11:41 AM EST 01/07/2012 11:41 AM EST Andi Rene MD POINT OF CARE TEST Stephanie VO Performing Organization Address [facility] Phone Number [facility] * XR chest routine PA & lateral (01/07/2012 8:32 AM EST) Anatomical Region Laterality Modality Chest N/A Radiographic Ofelia ging 01/07/2012 8:32 AM EST Impressions 01/07/2012 4:54 PM EST IMPRESSION: ?? 1. Small hydropneumothorax on the right, as above. ?? 2. Partial atelectasis of the lower lobes. ?? 3. Increased prominence of cardiomediastinal silhouette may reflect postoperative effusion or hematoma. Narrative 01/07/2012 4:54 PM EST TWO-VIEW CHEST: INDICATION: ??Status post CABG. ?? TECHNIQUE: ??PA and lateral views of the chest are compared to 01/04/12. ?? FINDINGS: ??Support and monitoring equipment have been removed. In the medial ventral right hemithorax is an air-fluid level consistent with a small area of hydropneumothorax. Small pleural effusion is also seen dorsally on both sides. Partial atelectasis of both lower lobe is present. Mild increased prominence of the cardiomediastinal silhouette, question pericardial effusion, or postoperative mediastinal hematoma. ?? Procedure Note Lay Jasso MD - 01/07/2012 TWO-VIEW CHEST: INDICATION: Status post CABG. TECHNIQUE: PA and lateral views of the chest are compared to 01/04/12. FINDINGS: Support and monitoring equipment have been removed. In themedial ventral right hemithorax is an air-fluid level consistent with a smallarea of hydropneumothorax. Small pleural effusion is also seen dorsally on bothsides. Partial atelectasis of both lower lobe is present. Mild increasedprominence of the cardiomediastinal silhouette, question pericardial effusion, or postoperative mediastinal hematoma. IMPRESSION IMPRESSION: 1. Small hydropneumothorax on the right, as above. 2. Partial atelectasis of the lower lobes. 3. Increased prominence of cardiomediastinal silhouette may reflect postoperative effusion or hematoma. Sarthak Pollard MD IMG DX ORDERABLES * POCT GLUCOSE LAB USE ONLY (01/07/2012 8:00 AM EST) [facility] Glucose, POC 116 60 - 199 mg/dL [facility] Comment: Supplemental ranges: <110 mg/dL before meals <200 mg/dL all other times of the day Blood specimen (specimen) 01/07/2012 8:00 AM EST 01/07/2012 8:00 AM EST Andi Rene MD POINT OF CARE TEST O RDERABLES CERNER MILLENNIUM * (ABNORMAL) DIFFERENTIAL, AUTOMATED (01/07/2012 4:11 AM EST) Neutrophil % 78.1(H) 34.0 - 71.0 % CERNER MILLENNIUM Neutrophil Absolute 12.83(H) 1.50 - 6.30 x10(3)/mc L CERNER MILLENNIUM Lymph % 12.8(L) 19.0 - 53.0 % CERNER MILLENNIUM Lymphocytes Abs 2.1 1.0 - 3.6 x10(3)/mc L CERNER MILLENNIUM Monocyte % 7.5 4.0 - 13.0 % CERNER MILLENNIUM Monocyte Abs 1.2(H) 0.2 - 1.0 x10(3)/mc L CERNER MILLENNIUM Eos % 0.5 0.0 - 7.0 % CERNER MILLENNIUM Eosinophils Abs 0.1 0.0 - 0.5 x10(3)/mc L CERNER MILLENNIUM Basophil % 0.2 0.0 - 2.0 % CERNER MILLENNIUM Baso Absolute 0.0 0.0 - 0.2 x10(3)/mc L CERNER MILLENNIUM Immature Gran % 0.90(H) 0.00 - 0.66 % CERNER MILLENNIUM Comment: Immature granulocytes(IG's)percentage and absolute count will include metamyelocytes, myelocytes, and promyelocytes. Blood smears from CBCs yielding IG's will be scanned manually for concordance. If this scan disagrees with the automated IG or if promyelocytes are noted, a manual differential will be performed. Immature Gran Absolute 0.15(H) 0.00 - 0.05 x10(3)/mc L CERNER MILLENNIUM Blood specimen (specimen) 01/07/2012 4:11 AM EST 01/07/2012 4:17 AM EST Sarthak Pollard MD HEMATOLOGY ORDERABLE S CERBRIAN CAENNIUM * (ABNORMAL) Basic Metabolic Panel (non-fasting) (01/07/2012 4:11 AM EST) Glucose 127 60 - 199 mg/dL CERNER MILLENNIUM Comment:Diabetes: >=200 mg/d L plus symptoms Blood Urea Nitrogen 13 10 - 20 mg/dL CERNER MILLENNIUM Creatinine 0.72(L) 0.80 - 1.50 mg/dL CERNER MILLENNIUM Sodium 132(L) 135 - 145 mmol/L CERNER MILLENNIUM Potassium 4.3 3.5 - 5.0 mmol/L [facility]ERNER MILLENNIUM Comment: Please note: ??Patients with WBC >100,000 may have falsely elevated Potassium levels. ??For accurate Potassium quantification in these patients send serum separator tube (gold top) for subsequent determinations. ??Contact the Clinical Chemistry Laboratory if there are any questions. Chloride 95(L) 98 - 107 mmol/L CERNER MILLENNIUM Carbon Dioxide 25 22 - 31 mmol/L CERNER MILLENNIUM Anion Gap 12 5 - 15 mmol/L CERNER MILLENNIUM Calcium 9.3 8.5 - 10.5 mg/dL CERNER MILLENNIUM Est Glomerular Filtration Rate >60 >=60 CERNER MILLENNIUM Comment: The National Kidney Disease Education Program (NKDEP) has recommended all laboratories report estimated GFR (eGFR) along with plasma creatinine measurements to assist you with recognition of early kidney disease. Caveats: ??Plasma creatinine should be at steady-state (unchanged within the past week). For patients multiply eGFR by 1.2. The MDRD equation has not been validated for pediatric patients and is only valid for patients with age >= 18 years. At present, NKDEP does NOT recommend using the MDRD equation for drug dosing purposes and pharmacists should continue to use their current dosing methods. In addition, numerical eGFR values greater than 60 ml/min/1.73 square meters should be treated as > 60, and not an exact number due to greater inaccuracies at these higher values. Per NKDEP, they classify normal renal function as any GFR >60ml/min/1.73 square meters; chronic kidney disease when GFR <60, and renal failure when GFR <15. ??This calculation may not be valid for patients with atypical muscle mass (very lean or obese), acute renal failure, and in patients with diabetic kidney disease. References: http://nkdep.nih.gov/resources/NKDEP_Suggestn4Labs_0606_508.pdf http://www.kidney.org/professionals/kls/pdf/faq_gfr.pdf Blood specimen (specimen) 01/07/2012 4:11 AM EST 01/07/2012 4:17 AM EST Narrative Resulting Agency Comment Spec In Lab Sarthak Pollard MD CHEMISTRY ORDERABLES Performing Organization Address City/State/[facility] Co de Phone Number CERNER MILLENNIUM * (ABNORMAL) CBC (with Diff) (01/07/2012 4:11 AM EST) White Blood Cell 16.4(H) 4.0 - 10.0 x10(3)/mc L CERNER MILLENNIUM Red Blood Cell 3.60(L) 4.63 - 6.08 x10(6)/mc L CERNER MILLENNIUM Hemoglobin 10.7(L) 13.7 - 17.5 gm/dL CERNER MILLENNIUM Hematocrit 31.7(L) 40.0 - 51.0 % CERNER MILLENNIUM Mean Cell Volume 88.1 79.0 - 92.0 fL CERNER MILLENNIUM Mean Cell Hemoglobin 29.7 25.6 - 32.2 pg CERNER MILLENNIUM Mean Cell Hemoglobin Concentration 33.8 32.0 - 36.5 gm/dL CERNER MILLENNIUM Platelet 261 145 - 370 x10(3)/mc L CERNER MILLENNIUM RDW Standard Deviation 42.1 35.0 - 46.0 fL CERNER MILLENNIUM RDW coefficient of variation 13.1 10.9 - 14.4 % CERNER MILLENNIUM Mean Platelet Volume 9.5 9.0 - 12.0 fL CERNER MILLENNIUM Blood specimen (specimen) 01/07/2012 4:11 AM EST 01/07/2012 4:17 AM EST Narrative Resulting Agency Comment Spec In Lab Sarthak Pollard MD HEMATOLOGY ORDERABLE S [facility] * Microalbumin, urine, random (01/06/2012 9:03 PM EST) Creatinine, Urine 136 mg/dL DANIA VIVEROS [facility] Albumin, Urine 14.4 mg/L JADEN R [facility] Albumin / Creatinin Ratio, Urine 11 mcg/mg Cr ARIAN [facility] Comment: Reference Range* Random collection (mcg/mg creatinine) Normal ?<30 Microalbuminuria ?? 30 - 300 Clinical Albuminuria ?? >300 *[place] [employer]. Diabetic Nephropathy. Diabetes Care 1997;(Suppl 1):S24-S27 Exercise within 24 hour, infection, fever, CHF, marked hyperglycemia, and marked hypertension may elevate urinary albumin excretion over baseline values. Urine specimen (specimen) 01/06/2012 9:03 PM EST 01/06/2012 10:28 PM EST Narrative Resulting Agency Comment Spec In Lab Inna Tovar MD URINE ORDERABLES Performing Organization Address [facility] Phone Number [facility] * POCT GLUCOSE LAB USE ONLY (01/06/2012 7:46 PM EST) Glucose, POC 127 60 - 199 mg/dL [facility] Comment: Supplemental ranges: <110 mg/dL before meals <200 mg/dL all other times of the day Blood specimen (specimen) 01/06/2012 7:46 PM EST 01/06/2012 7:46 PM EST Adni Rene MD POINT OF CARE TEST O RDERABLES Performing Organization Address [facility] Phone Number [facility] * POCT GLUCOSE LAB USE ONLY (01/06/2012 4:24 PM EST) Glucose, POC 131 60 - 199 mg/dL [facility] Comment: Supplemental ranges: <110 mg/dL before meals <200 mg/dL all other times of the day Blood specimen (specimen) 01/06/2012 4:24 PM EST 01/06/2012 4:24 PM EST Andi Rene MD POINT OF CARE TEST O RDERABLES Performing Organization Address [facility] de Phone Number [facility] * POCT GLUCOSE LAB USE ONLY (01/06/2012 12:06 PM EST) Glucose, POC 160 60 - 199 mg/dL [facility] Comment: Supplemental ranges: <110 mg/dL before meals <200 mg/dL all other times of the day Blood specimen (specimen) 01/06/2012 12:06 PM EST 01/06/2012 12:06 PM EST Andi Rene MD POINT OF CARE TEST O RDTYESHA Performing Organization Address [facility] Phone Number [facility] * Potassium (01/06/2012 9:59 AM EST) Potassium 4.0 3.5 - 5.0 mmol/L [facility] Comment: Please note: ??Patients with WBC >100,000 may have falsely elevated Potassium levels. ??For accurate Potassium quantification in these patients send serum separator tube (gold top) for subsequent determinations. ??Contact the Clinical Chemistry Laboratory if there are any questions. Blood specimen (specimen) 01/06/2012 9:59 AM EST 01/06/2012 10:13 AM EST Narrative Resulting Agency Comment Spec In Lab Inna Tovar MD CHEMISTRY ORDERABLES Performing Organization Address [facility] de Phone Number [facility] * POCT GLUCOSE LAB USE ONLY (01/06/2012 6:53 AM EST) Glucose, POC 168 60 - 199 mg/dL [facility] Comment: Supplemental ranges: <110 mg/dL before meals <200 mg/dL all other times of the day Blood specimen (specimen) 01/06/2012 6:53 AM EST 01/06/2012 6:53 AM EST Andi Rene MD POINT OF CARE TEST O RDERAHERNANDEZ Performing Organization Address [facility] de Phone Number [facility] * POCT GLUCOSE LAB USE ONLY (01/06/2012 5:03 AM EST) Glucose, POC 147 60 - 199 mg/dL [facility] Comment: Supplemental ranges: <110 mg/dL before meals <200 mg/dL all other times of the day Blood specimen (specimen) 01/06/2012 5:03 AM EST 01/06/2012 5:03 AM EST Andi Rene MD POINT OF CARE TEST O GILDA Performing Organization Address [facility] Phone Number [facility] * POCT GLUCOSE LAB USE ONLY (01/06/2012 3:16 AM EST) Glucose, POC 126 60 - 199 mg/dL [facility] Comment: Supplemental ranges: <110 mg/dL before meals <200 mg/dL all other times of the day Blood specimen (specimen) 01/06/2012 3:16 AM EST 01/06/2012 3:16 AM EST Andi Rene MD POINT OF CARE TEST O GILDA Performing Organization Address [facility] Phone Number [facility] * POCT GLUCOSE LAB USE ONLY (01/06/2012 1:12 AM EST) Glucose, POC 135 60 - 199 mg/dL [facility] Comment: Supplemental ranges: <110 mg/dL before meals <200 mg/dL all other times of the day Blood specimen (specimen) 01/06/2012 1:12 AM EST 01/06/2012 1:12 AM EST Andi Rene MD POINT OF CARE TEST O RDERAHERNANDEZ Performing Organization Address [facility] Co de Phone Number [facility] * POCT GLUCOSE LAB USE ONLY (01/05/2012 11:52 PM EST) Glucose, POC 133 60 - 199 mg/dL [facility] Comment: Supplemental ranges: <110 mg/dL before meals <200 mg/dL all other times of the day Blood specimen (specimen) 01/05/2012 11:52 PM EST 01/05/2012 11:52 PM EST Andi Rene MD POINT OF CARE TEST O GILDA Performing Organization Address [facility] de Phone Number [facility] * POCT GLUCOSE LAB USE ONLY (01/05/2012 10:54 PM EST) Glucose, POC 130 60 - 199 mg/dL [facility] Comment: Supplemental ranges: <110 mg/dL before meals <200 mg/dL all other times of the day Blood specimen (specimen) 01/05/2012 10:54 PM EST 01/05/2012 10:54 PM EST Andi Rene MD POINT OF CARE TEST O GILDA Performing Organization Address [facility] Co de Phone Number [facility] * POCT GLUCOSE LAB USE ONLY (01/05/2012 9:51 PM EST) Glucose, POC 132 60 - 199 mg/dL [facility] Comment: Supplemental ranges: <110 mg/dL before meals <200 mg/dL all other times of the day Blood specimen (specimen) 01/05/2012 9:51 PM EST 01/05/2012 9:51 PM EST Andi Rene MD POINT OF CARE TEST O GILDA Performing Organization Address [facility] Co de Phone Number [facility] * POCT GLUCOSE LAB USE ONLY (01/05/2012 8:50 PM EST) Glucose, POC 126 60 - 199 mg/dL [facility] Comment: Supplemental ranges: <110 mg/dL before meals <200 mg/dL all other times of the day Blood specimen (specimen) 01/05/2012 8:50 PM EST 01/05/2012 8:50 PM EST Andi Rene MD POINT OF CARE TEST O RDTYESHA Performing Organization Address [facility] de Phone Number [facility] * POCT GLUCOSE LAB USE ONLY (01/05/2012 8:07 PM EST) Glucose, POC 126 60 - 199 mg/dL [facility] Comment: Supplemental ranges: <110 mg/dL before meals <200 mg/dL all other times of the day Blood specimen (specimen) 01/05/2012 8:07 PM EST 01/05/2012 8:07 PM EST Andi Rene MD POINT OF CARE TEST O GILDA Performing Organization Address [facility] Phone Number [facility] * POCT GLUCOSE LAB USE ONLY (01/05/2012 6:57 PM EST) Glucose, POC 137 60 - 199 mg/dL [facility] Comment: Supplemental ranges: <110 mg/dL before meals <200 mg/dL all other times of the day Blood specimen (specimen) 01/05/2012 6:57 PM EST 01/05/2012 6:57 PM EST Andi Rene MD POINT OF CARE TEST O GILDA Performing Organization Address [facility] de Phone Number [facility] * POCT GLUCOSE LAB USE ONLY (01/05/2012 4:59 PM EST) Glucose, POC 147 60 - 199 mg/dL [facility] Comment: Supplemental ranges: <110 mg/dL before meals <200 mg/dL all other times of the day Blood specimen (specimen) 01/05/2012 4:59 PM EST 01/05/2012 4:59 PM EST Andi Rene MD POINT OF CARE TEST O RDERAHERNANDEZ Performing Organization Address [facility] Co de Phone Number [facility] * POCT GLUCOSE LAB USE ONLY (01/05/2012 1:05 PM EST) Glucose, POC 154 60 - 199 mg/dL [facility] Comment: Supplemental ranges: <110 mg/dL before meals <200 mg/dL all other times of the day Blood specimen (specimen) 01/05/2012 1:05 PM EST 01/05/2012 1:05 PM EST Andi Rene MD POINT OF CARE TEST O GILDA Performing Organization Address [facility] de Phone Number [facility] * POCT GLUCOSE LAB USE ONLY (01/05/2012 12:42 PM EST) Glucose, POC 148 60 - 199 mg/dL [facility] Comment: Supplemental ranges: <110 mg/dL before meals <200 mg/dL all other times of the day Blood specimen (specimen) 01/05/2012 12:42 PM EST 01/05/2012 12:42 PM EST Andi Rene MD POINT OF CARE TEST O GILDA Performing Organization Address [facility] de Phone Number [facility] * POCT GLUCOSE LAB USE ONLY (01/05/2012 9:54 AM EST) Glucose, POC 145 60 - 199 mg/dL [facility] Comment: Supplemental ranges: <110 mg/dL before meals <200 mg/dL all other times of the day Blood specimen (specimen) 01/05/2012 9:54 AM EST 01/05/2012 9:54 AM EST Andi Rene MD POINT OF CARE TEST O RDERAHERNANDEZ Performing Organization Address [facility] de Phone Number [facility] * POCT GLUCOSE LAB USE ONLY (01/05/2012 8:00 AM EST) Glucose, POC 168 60 - 199 mg/dL [facility] Comment: Supplemental ranges: <110 mg/dL before meals <200 mg/dL all other times of the day Blood specimen (specimen) 01/05/2012 8:00 AM EST 01/05/2012 8:00 AM EST Andi Rene MD POINT OF CARE TEST O GILDA Performing Organization Address [facility] Co de Phone Number [facility] * POCT GLUCOSE LAB USE ONLY (01/05/2012 5:58 AM EST) Glucose, POC 164 60 - 199 mg/dL [facility] Comment: Supplemental ranges: <110 mg/dL before meals <200 mg/dL all other times of the day Blood specimen (specimen) 01/05/2012 5:58 AM EST 01/05/2012 5:58 AM EST Andi Rene MD POINT OF CARE TEST O GILDA Performing Organization Address [facility] Co de Phone Number [facility] * POCT GLUCOSE LAB USE ONLY (01/05/2012 4:12 AM EST) Glucose, POC 148 60 - 199 mg/dL [facility] Comment: Supplemental ranges: <110 mg/dL before meals <200 mg/dL all other times of the day Blood specimen (specimen) 01/05/2012 4:12 AM EST 01/05/2012 4:12 AM EST Andi Rene MD POINT OF CARE TEST O GILDA Performing Organization Address [facility] Co de Phone Number [facility] * POCT GLUCOSE LAB USE ONLY (01/05/2012 2:05 AM EST) Glucose, POC 148 60 - 199 mg/dL [facility] Comment: Supplemental ranges: <110 mg/dL before meals <200 mg/dL all other times of the day Blood specimen (specimen) 01/05/2012 2:05 AM EST 01/05/2012 2:05 AM EST Andi Rene MD POINT OF CARE TEST O RDERABLES [facility] * (ABNORMAL) DIFFERENTIAL, AUTOMATED (01/05/2012 2:00 AM EST) Neutrophil % 79.0(H) 34.0 - 71.0 % [facility] Neutrophil Absolute 19.40(H) 1.50 - 6.30 x10(3)/mc L [facility]ILL[facility] Lymph % 7.6(L) 19.0 - 53.0 % [facility] Lymphocytes Abs 1.9 1.0 - 3.6 x10(3)/mc L [facility]ILLENNI[facility] Monocyte % 9.0 4.0 - 13.0 % [facility]ILLENNI[facility] Monocyte Abs 2.2(H) 0.2 - 1.0 x10(3)/mc L [facility] Eos % 0.2 0.0 - 7.0 % [facility]ILLENNI[facility] Eosinophils Abs 0.0 0.0 - 0.5 x10(3)/mc L [facility]ILL[facility]NI[facility] Basophil % 0.3 0.0 - 2.0 % [facility] MILLENNI[facility] Baso Absolute 0.1 0.0 - 0.2 x10(3)/mc L [facility] Immature Gran % 3.90(H) 0.00 - 0.66 % [facility] Comment: Immature granulocytes(IG's)percentage and absolute count will include metamyelocytes, myelocytes, and promyelocytes. Blood smears from CBCs yielding IG's will be scanned manually for concordance. If this scan disagrees with the automated IG or if promyelocytes are noted, a manual differential will be performed. Immature Gran Absolute 0.97(H) 0.00 - 0.05 x10(3)/mc L [facility] Blood specimen (specimen) 01/05/2012 2:00 AM EST 01/05/2012 2:11 AM EST Sarthak Pollard MD HEMATOLOGY ORDERABLE S [facility] * (ABNORMAL) Cardiac Enzymes (01/05/2012 2:00 AM EST) Troponin-T 0.39(H) <=0.03 ng/mL [facility] Comment: 0.03 ng/mL: Represents the 99th percentile upper reference limit for normals. >0.03 ng/mL: Elevated cardiac troponin T level indicative of myocardial damage. Diagnosis of acute, evolving or recent DC requires a typical rise and gradual fall [...] consensus document of the Joint Society of Cardiology/[place] College [employer] Committee for the redefinition of myocardial infarction. Journal of the [place] College of [employer]iology 2000; 36: 959-969] Creatine Kinase 436(H) 0 - 200 unit/L [facility] Blood specimen (specimen) 01/05/2012 2:00 AM EST 01/05/2012 2:11 AM EST Narrative Resulting Agency Comment Spec In Lab Sarthak Pollard MD CHEMISTRY ORDERABLES Performing Organization Address [facility] de Phone Number [facility] * Potassium (01/05/2012 2:00 AM EST) Pathologist [facility] Potassium 4.4 3.5 - 5.0 mmol/L [facility] Comment: Please note: ??Patients with WBC >100,000 may have falsely elevated Potassium levels. ??For accurate Potassium quantification in these patients send serum separator tube (gold top) for subsequent determinations. ??Contact the Clinical Chemistry Laboratory if there are any questions. Blood specimen (specimen) 01/05/2012 2:00 AM EST 01/05/2012 2:11 AM EST Narrative Resulting Agency Comment Spec In Lab Sarthak Pollard MD CHEMISTRY ORDERABLES Performing Organization Address [facility]/State/ZIP Co de Phone Number [facility] * (ABNORMAL) Glucose, fasting (01/05/2012 2:00 AM EST) Glucose Fasting 148(H) 65 - 99 mg/dL [facility] Comment: ?Fasting* Glucose Interpretive Criteria Normal ?65-99 [...] of Diabetes Mellitus, Position Statement from the [place] Diabetes Association. ??Diabetes Care, Volume 33, Supplement 1, Nov 2009 Blood specimen (specimen) 01/05/2012 2:00 AM EST 01/05/2012 2:11 AM EST Narrative Resulting Agency Comment Spec In Lab Sarthak Plolard MD CHEMISTRY ORDERABLES [facility] * Creatinine, serum (01/05/2012 2:00 AM EST) Creatinine 0.86 0.80 - 1.50 mg/dL [facility] Est Glomerular Filtration Rate >60 >=60 [facility] Comment: The National Kidney Disease Education Program (NKDEP) has recommended all laboratories report estimated GFR (eGFR) along with plasma creatinine measurements to assist you with recognition of early kidney disease. Caveats: ??Plasma creatinine should be at steady-state (unchanged within the past week). For patients multiply eGFR by 1.2. The MDRD equation has not been validated for pediatric patients and is only valid for patients with age >= 18 years. At present, NKDEP does NOT recommend using the MDRD equation for drug dosing purposes and pharmacists should continue to use their current dosing methods. In addition, numerical eGFR values greater than 60 ml/min/1.73 square meters should be treated as > 60, and not an exact number due to greater inaccuracies at these higher values. Per NKDEP, they classify normal renal function as any GFR >60ml/min/1.73 square meters; chronic kidney disease when GFR <60, and renal failure when GFR <15. ??This calculation may not be valid for patients with atypical muscle mass (very lean or obese), acute renal failure, and in patients with diabetic kidney disease. References: http://nkdep.nih.gov/resources/NKDEP_Suggestn4Labs_0606_508.pdf http://www.kidney.org/professionals/kls/pdf/faq_gfr.pdf Blood specimen (specimen) 01/05/2012 2:00 AM EST 01/05/2012 2:11 AM EST Narrative Resulting Agency Comment Spec In Lab Sarthak Pollard MD CHEMISTRY ORDERABLES Performing Organization Address [facility] de Phone Number [facility] * BUN (01/05/2012 2:00 AM EST) Blood Urea Nitrogen 10 10 - 20 mg/dL [facility] Blood specimen (specimen) 01/05/2012 2:00 AM EST 01/05/2012 2:11 AM EST Narrative Resulting Agency Comment Spec In Lab Sarthak Pollard MD CHEMISTRY ORDERABLES Performing Organization Address [facility] de Phone Number [facility] * (ABNORMAL) CBC (with Diff) (01/05/2012 2:00 AM EST) White Blood Cell 24.6(H) 4.0 - 10.0 x10(3)/mc L [facility] Red Blood Cell 4.27(L) 4.63 - 6.08 x10(6)/mc L [facility]ILL[facility] Hemoglobin 12.8(L) 13.7 - 17.5 gm/dL [facility] Hematocrit 37.9(L) 40.0 - 51.0 % [facility] MILLENNI[facility] Mean Cell Volume 88.8 79.0 - 92.0 fL [facility]ILLENNI[facility] Mean Cell Hemoglobin 30.0 25.6 - 32.2 pg [facility] Mean Cell Hemoglobin Concentration 33.8 32.0 - 36.5 gm/dL [facility]ILL[facility] Platelet 294 145 - 370 x10(3)/mc L [facility] MILLENNIUM RDW Standard Deviation 42.2 35.0 - 46.0 fL [facility]ILLENNIUM RDW coefficient of variation 13.0 10.9 - 14.4 % [facility]ER MILLENNIUM Mean Platelet Volume 9.7 9.0 - 12.0 fL [facility] Blood specimen (specimen) 01/05/2012 2:00 AM EST 01/05/2012 2:11 AM EST Narrative Resulting Agency Comment Spec In Lab Sarthak Pollard MD HEMATOLOGY ORDERABLE S Performing Organization Address [facility] Co de Phone Number [facility] * POCT GLUCOSE LAB USE ONLY (01/04/2012 11:58 PM EST) Glucose, POC 136 60 - 199 mg/dL [facility] Comment: Supplemental ranges: <110 mg/dL before meals <200 mg/dL all other times of the day Blood specimen (specimen) 01/04/2012 11:58 PM EST 01/04/2012 11:58 PM EST Andi Rene MD POINT OF CARE TEST O GILDA Performing Organization Address [facility] de Phone Number [facility] * POCT GLUCOSE LAB USE ONLY (01/04/2012 9:00 PM EST) Glucose, POC 143 60 - 199 mg/dL [facility] Comment: Supplemental ranges: <110 mg/dL before meals <200 mg/dL all other times of the day Blood specimen (specimen) 01/04/2012 9:00 PM EST 01/04/2012 9:00 PM EST Andi Rene MD POINT OF CARE TEST O RDERAHERNANDEZ Performing Organization Address [facility] Co de Phone Number [facility] * GLUCOSE, RANDOM (01/04/2012 9:00 PM EST) Glucose 128 60 - 199 mg/dL [facility] Comment:Diabetes: >=200 mg/d L plus symptoms Blood specimen (specimen) 01/04/2012 9:00 PM EST 01/04/2012 9:08 PM EST Narrative Resulting Agency Comment Spec In Lab Sarthak Pollard MD CHEMISTRY ORDERABLES Performing Organization Address [facility] de Phone Number ARI[facility] NELSON * (ABNORMAL) Hemoglobin (01/04/2012 9:00 PM EST) Hemoglobin 13.6(L) 13.7 - 17.5 gm/dL [facility] Blood specimen (specimen) 01/04/2012 9:00 PM EST 01/04/2012 9:08 PM EST Narrative Resulting Agency Comment Spec In Lab Sarthak Pollard MD HEMATOLOGY ORDERABLE S Performing Organization Address [facility] Phone Number [facility] NELSON * Potassium (01/04/2012 9:00 PM EST) Potassium 4.7 3.5 - 5.0 mmol/L [facility] Comment: Please note: ??Patients with WBC >100,000 may have falsely elevated Potassium levels. ??For accurate Potassium quantification in these patients send serum separator tube (gold top) for subsequent determinations. ??Contact the Clinical Chemistry Laboratory if there are any questions. Blood specimen (specimen) 01/04/2012 9:00 PM EST 01/04/2012 9:08 PM EST Narrative Resulting Agency Comment Spec In Lab Sarthak Pollard MD CHEMISTRY ORDERABLES Performing Organization Address [facility] Phone Number [facility] NELSON * (ABNORMAL) BLOOD GAS 2 ARTERIAL (01/04/2012 6:47 PM EST) pH, Arterial 7.33(L) [facility] PCO2, Arterial 47(H) mmHg CERNE R MILLENNIUM PO2, Arterial 109(H) mmHg [facility] MILLENNIUM Bicarbonate, Arterial 24.1 mmol/L [facility] MILLENNI[facility] Base Excess, Arterial -1.9 mmol/L [facility]ILLEN[facility] Hgb Blood Gas 14.1 gm/dL [facility] Comment: Total Hemoglobin (in gm/dL) ?Based on [facility] Hematology ranges: ?Age ?Reference Range Less than 3 days ?14.5 to 22.5 3 days to 2 weeks ? 12.5 to 20.5 2 weeks to 1 month ?10.0 to 18.0 1 to 6 months ?9.4 to 14.0 6 months to 2 years ? 10.5 to 13.5 2 to 6 years ?11.5 to 13.5 6 to 12 years ? 11.5 to 15.5 12 to 18 years (female) 12.0 to 16.0 ? (male) ?? 13.0 to 16.0 > 18 years ? (female) 11.2 to 15.7 ? (male) ?? 13.7 to 17.5 Oxyhemoglobin, Arterial 96.7 % [facility]ILLENNIUM Carboxyhemoglob in, Arterial 0.8 % [facility] Comment: Nonsmokers: 0.5-1.5% COHB Smokers: Variable, but usually less than 10% Toxic: 20-30% COHB Lethal: Greater than 60% COHB Methemoglobin, Arterial 0.3 % [facility] MILLENNI[facility] Na Whole Blood 140 mmol/L [facility]NE R MILLENNIUM K Whole Blood 4.5 mmol/L [facility] Comment: Please note: Patients with WBC >100,000 may have falsely elevated Potassium levels. Contact the Clinical Chemistry Laboratory if there are any questions. ICa Whole Blood 1.17 mmol/L [facility] Comment: Reference Ranges: ?? < 19 yrs: 1.22 - 1.37 mmol/L ? Adults: 1.15 - 1.33 mmol/L Note: ??Total bilirubin higher than 20 mg/dL may lead to falsely low ionized calcium. CL Whole Blood 108(H) mmol/L [facility] R [facility]ILLEN[facility] Gluc Whole Bld 97 mg/dL [facility] Comment:Diabetes: >=200 mg/d L plus symptoms. FIO2 Art 40 % [facility] MILLENNIUM PF Ratio Art 272 [facility]ILLEN[facility] Blood specimen (specimen) 01/04/2012 6:47 PM EST 01/04/2012 6:47 PM EST Andi Rene MD POINT OF CARE TEST O RDERABLES [facility] * (ABNORMAL) BLOOD GAS 2 ARTERIAL (01/04/2012 6:21 PM EST) pH, Arterial 7.32(L) [facility] PCO2, Arterial 49(H) mmHg CERNE R MILLENNIUM PO2, Arterial 100 mmHg [facility] MILLENNIUM Bicarbonate, Arterial 25.0 mmol/L [facility] MILLENNI[facility] Base Excess, Arterial -1.2 mmol/L [facility] Hgb Blood Gas 14.1 gm/dL [facility] Comment: Total Hemoglobin (in gm/dL) ?Based on [facility] Hematology ranges: ?Age ?Reference Range Less than 3 days ?14.5 to 22.5 3 days to 2 weeks ? 12.5 to 20.5 2 weeks to 1 month ?10.0 to 18.0 1 to 6 months ?9.4 to 14.0 6 months to 2 years ? 10.5 to 13.5 2 to 6 years ?11.5 to 13.5 6 to 12 years ? 11.5 to 15.5 12 to 18 years (female) 12.0 to 16.0 ? (male) ?? 13.0 to 16.0 > 18 years ? (female) 11.2 to 15.7 ? (male) ?? 13.7 to 17.5 Oxyhemoglobin, Arterial 96.1 % [facility]ILL[facility] Carboxyhemoglob in, Arterial 0.9 % [facility] Comment: Nonsmokers: 0.5-1.5% COHB Smokers: Variable, but usually less than 10% Toxic: 20-30% COHB Lethal: Greater than 60% COHB Methemoglobin, Arterial 0.4 % [facility]ILLENNI[facility] Na Whole Blood 139 mmol/L [facility]ERNE R MILLENNIUM K Whole Blood 4.4 mmol/L [facility] Comment: Please note: Patients with WBC >100,000 may have falsely elevated Potassium levels. Contact the Clinical Chemistry Laboratory if there are any questions. ICa Whole Blood 1.16 mmol/L [facility] ER [facility]ILLENNI[facility] Comment: Reference Ranges: ?? < 19 yrs: 1.22 - 1.37 mmol/L ? Adults: 1.15 - 1.33 mmol/L Note: ??Total bilirubin higher than 20 mg/dL may lead to falsely low ionized calcium. CL Whole Blood 107 mmol/L [facility] R MILLENNIUM Gluc Whole Bld 92 mg/dL [facility] Comment:Diabetes: >=200 mg/d L plus symptoms. FIO2 Art 40 % [facility] MILLENNIUM PF Ratio Art 250 [facility]ILL[facility] Blood specimen (specimen) 01/04/2012 6:21 PM EST 01/04/2012 6:21 PM EST Andi Rene MD POINT OF CARE TEST O RDERABLES [facility] * XR CHEST PA OR AP- 1 VIEW (01/04/2012 4:43 PM EST) Anatomical Region Laterality Modality Chest N/A Radiographic Ofelia ging 01/04/2012 4:43 PM EST Impressions 01/05/2012 1:16 PM EST IMPRESSION: Expected early postoperative findings. Narrative 01/05/2012 1:16 PM EST CHEST: INDICATION: ??Status post CABG. TECHNIQUE: ??Single portable AP semiupright view of the chest. COMPARISON: ??January 01, 2012. FINDINGS: ??Low lung volumes with slight crowding of the intrathoracic structures. ??This likely explains the mild prominence of the pulmonary vasculature. ??No bebe pulmonary edema. ??Mild atelectases in the bilateral lower lungs. ??Normal size of the heart and width of the mediastinum. ?? PA catheter ends at the proximal aspect of the left pulmonary artery. ?? Endotracheal tube and drainage catheters in expected position. ?? Procedure Note Lizbet Ramirez MD - 01/05/2012 CHEST: INDICATION: Status post CABG. TECHNIQUE: Single portable AP semiupright view of the chest. COMPARISON: January 01, 2012. FINDINGS: Low lung volumes with slight crowding of the intrathoracic structures. This likely explains the mild prominence of the pulmonary vasculature. No bebe pulmonary edema. Mild atelectases in the bilateral lower lungs. Normal size of the heart and width of the mediastinum. PA catheter ends at the proximal aspect of the left pulmonary artery. Endotracheal tube and drainage catheters in expected position. IMPRESSION IMPRESSION: Expected early postoperative findings. Ricky ANDERSON [facility] DX ORDERABLES * (ABNORMAL) BLOOD GAS 2 ARTERIAL (01/04/2012 4:30 PM EST) pH, Arterial 7.35(L) [facility]ILL[facility]NIUM PCO2, Arterial 46(H) mmHg CERNE R MILLENNIUM PO2, Arterial 223(H) mmHg [facility]ERNER MILLENNIUM Bicarbonate, Arterial 25.1 mmol/L [facility] MILLENNIUM Base Excess, Arterial -0.4 mmol/L [facility] MILLENNIUM Hgb Blood Gas Not Perf 13.7 - 17.5 gm/dL [facility]ILL[facility] Comment: Total Hemoglobin (in gm/dL) ?Based on [facility] Hematology ranges: ?Age ?Reference Range Less than 3 days ?14.5 to 22.5 3 days to 2 weeks ? 12.5 to 20.5 2 weeks to 1 month ?10.0 to 18.0 1 to 6 months ?9.4 to 14.0 6 months to 2 years ? 10.5 to 13.5 2 to 6 years ?11.5 to 13.5 6 to 12 years ? 11.5 to 15.5 12 to 18 years (female) 12.0 to 16.0 ? (male) ?? 13.0 to 16.0 > 18 years ? (female) 11.2 to 15.7 ? (male) ?? 13.7 to 17.5 Oxyhemoglobin, Arterial Not Perf 94.0 - 97.0 % [facility] MILLENNIUM Carboxyhemoglob in, Arterial Not Perf % [facility] Comment: Nonsmokers: 0.5-1.5% COHB Smokers: Variable, but usually less than 10% Toxic: 20-30% COHB Lethal: Greater than 60% COHB Methemoglobin, Arterial Not Perf <=1.5 % [facility] MILLENNIUM Na Whole Blood 136 mmol/L [facility] R MILLENNIUM K Whole Blood 4.3 mmol/L [facility] Comment: Please note: Patients with WBC >100,000 may have falsely elevated Potassium levels. Contact the Clinical Chemistry Laboratory if there are any questions. ICa Whole Blood 1.17 mmol/L [facility]ILL[facility] Comment: Reference Ranges: ?? < 19 yrs: 1.22 - 1.37 mmol/L ? Adults: 1.15 - 1.33 mmol/L Note: ??Total bilirubin higher than 20 mg/dL may lead to falsely low ionized calcium. CL Whole Blood 106 mmol/L [facility] R MILLENNIUM Gluc Whole Bld 117 mg/dL [facility] Comment:Diabetes: >=200 mg/d L plus symptoms. FIO2 Art 100 % CERNER MILLENNIUM PF Ratio Art 223 [facility] MILLENNIUM Blood specimen (specimen) 01/04/2012 4:30 PM EST 01/04/2012 4:30 PM EST Andi Rene MD POINT OF CARE TEST O RDERABLES Performing Organization Address City/[facility]/ZIP Co de Phone Number [facility]ERNER MILLENNIUM * EKG 12 Lead (01/04/2012 4:26 PM EST) Ventricular rate 72 BPM MUSE SYSTEM Atrial Rate 72 BPM MUSE SYSTEM P-R Interval 174 ms MUSE SYSTEM QRS Duration 96 ms MUSE SYSTEM Q-T Interval 416 ms MUSE SYSTEM QTC Calculated (Bezet) 455 ms MUSE SYSTEM Calculated P Stafford 48 degrees MUSE SYSTEM Calculated R Stafford 23 degrees MUSE SYSTEM Calculated T Stafford 71 degrees MUSE SYSTEM INTERPRETATION Normal sinus rhythm Normal ECG When compared with ECG of 30-DEC-2011 17:24, Vent. rate has decreased BY ??35 BPM Minimal criteria for Inferior infarct are no longer Present Nonspecific T wave abnormality, improved in Anterolateral leads Confirmed by fellow MD Steve, Luca ([id number]) on 01/05/2012 10:22:57 AM Confirmed by MD DELMIS, SARTHAK ([id number]) on 01/05/2012 1:30:02 PM MUSE SYSTEM 01/04/2012 4:26 PM EST 01/05/2012 1:30 PM EST Sarthak Pollard MD ECG ORDERABLES Performing Organization Address [facility] Co de Phone Number MUSE SYSTEM * (ABNORMAL) DIFFERENTIAL, AUTOMATED (01/04/2012 3:28 PM EST) Neutrophil % 77.6(H) 34.0 - 71.0 % [facility]ER MILLENNIUM Neutrophil Absolute 15.46(H) 1.50 - 6.30 x10(3)/mc L CERNER MILLENNIUM Lymph % 14.6(L) 19.0 - 53.0 % CERNER MILLENNIUM Lymphocytes Abs 2.9 1.0 - 3.6 x10(3)/mc L CERNER MILLENNIUM Monocyte % 1.5(L) 4.0 - 13.0 % CERNER MILLENNIUM Monocyte Abs 0.3 0.2 - 1.0 x10(3)/mc L CERNER MILLENNIUM Eos % 1.0 0.0 - 7.0 % CERNER MILLENNIUM Eosinophils Abs 0.2 0.0 - 0.5 x10(3)/mc L CERNER MILLENNIUM Basophil % 0.5 0.0 - 2.0 % CERNER MILLENNIUM Baso Absolute 0.1 0.0 - 0.2 x10(3)/mc L [facility]ER MILLENNIUM Immature Gran % 4.80(H) 0.00 - 0.66 % [facility]ILL[facility]NI[facility] Comment: Immature granulocytes(IG's)percentage and absolute count will include metamyelocytes, myelocytes, and promyelocytes. Blood smears from CBCs yielding IG's will be scanned manually for concordance. If this scan disagrees with the automated IG or if promyelocytes are noted, a manual differential will be performed. Immature Gran Absolute 0.96(H) 0.00 - 0.05 x10(3)/mc L [facility] MILLENNIUM Blood specimen (specimen) 01/04/2012 3:28 PM EST 01/04/2012 3:28 PM EST Sarthak Pollard MD HEMATOLOGY ORDERABLE S [facility]NI[facility] * (ABNORMAL) BLOOD GAS 2 ARTERIAL (01/04/2012 3:28 PM EST) pH, Arterial 7.32(L) [facility] MILLENNIUM PCO2, Arterial 51(Critica l) mmHg [facility]ILLENNI[facility] Comment: Noted by electrical instrumentation technician. MTF PO2, Arterial 145(H) mmHg CERNER MILLENNIUM Bicarbonate, Arterial 25.5 mmol/L CERNER MILLENNIUM Base Excess, Arterial -0.7 mmol/L [facility]ER MILLENNIUM Hgb Blood Gas 11.1(L) gm/dL [facility] MILLENNIUM Comment: Total Hemoglobin (in gm/dL) ?Based on [facility] Hematology ranges: ?Age ?Reference Range Less than 3 days ?14.5 to 22.5 3 days to 2 weeks ? 12.5 to 20.5 2 weeks to 1 month ?10.0 to 18.0 1 to 6 months ?9.4 to 14.0 6 months to 2 years ? 10.5 to 13.5 2 to 6 years ?11.5 to 13.5 6 to 12 years ? 11.5 to 15.5 12 to 18 years (female) 12.0 to 16.0 ? (male) ?? 13.0 to 16.0 > 18 years ? (female) 11.2 to 15.7 ? (male) ?? 13.7 to 17.5 Oxyhemoglobin, Arterial 97.5(H) % [facility]ER MILLENNIUM Carboxyhemoglob in, Arterial 0.8 % [facility] MILLENNIUM Comment: Nonsmokers: 0.5-1.5% COHB Smokers: Variable, but usually less than 10% Toxic: 20-30% COHB Lethal: Greater than 60% COHB Methemoglobin, Arterial 0.4 % CERNER MILLENNIUM Na Whole Blood 131(L) mmol/L CERNE R MILLENNIUM K Whole Blood 4.7 mmol/L [facility] MILLENNIUM Comment: Please note: Patients with WBC >100,000 may have falsely elevated Potassium levels. Contact the Clinical Chemistry Laboratory if there are any questions. ICa Whole Blood 1.20 mmol/L CERN ER MILLENNIUM Comment: Reference Ranges: ?? < 19 yrs: 1.22 - 1.37 mmol/L ? Adults: 1.15 - 1.33 mmol/L Note: ??Total bilirubin higher than 20 mg/dL may lead to falsely low ionized calcium. CL Whole Blood 100 mmol/L [facility]ERNE R MILLENNIUM Gluc Whole Bld 166 mg/dL [facility] MILLENNI[facility] Comment:Diabetes: >=200 mg/d L plus symptoms. Blood specimen (specimen) 01/04/2012 3:28 PM EST 01/04/2012 3:28 PM EST Andi Rene MD POINT OF CARE TEST O RDERABLES [facility] * THROMBIN TIME (01/04/2012 3:28 PM EST) Thrombin Time 17 15 - 20 sec [facility] Blood specimen (specimen) 01/04/2012 3:28 PM EST 01/04/2012 3:28 PM EST Narrative Resulting Agency Comment Spec In Lab Sarthak Pollard MD HEMATOLOGY ORDERABLE S Performing Organization Address [facility] de Phone Number [facility] * FIBRINOGEN (01/04/2012 3:28 PM EST) Fibrinogen 364 200 - 470 mg/dL [facility] Comment:Called by: LEILANI, Read back by: AKANKSHA SAMPSON, Date/Time:01/04/12 15:45. Blood specimen (specimen) 01/04/2012 3:28 PM EST 01/04/2012 3:28 PM EST Narrative Resulting Agency Comment Spec In Lab Sarthak Pollard MD HEMATOLOGY ORDERABLE S Performing Organization Address [facility] Phone Number [facility] * APTT (01/04/2012 3:28 PM EST) Partial Thromboplastin Time 30 25 - 35 sec [facility] Comment: Recommended therapeutic PTT range for full dose unfractionated heparin is 80-114 seconds. Blood specimen (specimen) 01/04/2012 3:28 PM EST 01/04/2012 3:28 PM EST Narrative Resulting Agency Comment Spec In Lab Sarthak Pollard MD HEMATOLOGY ORDERABLE S Performing Organization Address [facility] Phone Number [facility] * (ABNORMAL) PROTHROMBIN TIME (01/04/2012 3:28 PM EST) Prothrombin Time 17.8(H) 11.9 - 14.[address] [facility] Comment: [facility] Transfusion Committee Guidelines: INR less than 2.0, PTT less than OR equal to 43.5 seconds, or Fibrinogen greater than or equal to 100 mg/dl indicate adequate procoagulant activity for hemostasis in patients without underlying bleeding disorders. International Normalization Ratio 1.4(H) 0.9 - 1.1 [facility]ER MILLENNIUM Blood specimen (specimen) 01/04/2012 3:28 PM EST 01/04/2012 3:28 PM EST Narrative Resulting Agency Comment Spec In Lab Sarthak Pollard MD HEMATOLOGY ORDERABLE S CERBRIAN MILLENNIUM * (ABNORMAL) CBC (WITH DIFF) (01/04/2012 3:28 PM EST) White Blood Cell 19.9(H) 4.0 - 10.0 x10(3)/mc L CERNER MILLENNIUM Red Blood Cell 3.42(L) 4.63 - 6.08 x10(6)/mc L CERNER MILLENNIUM Hemoglobin 10.2(L) 13.7 - 17.5 gm/dL CERNER MILLENNIUM Hematocrit 30.1(L) 40.0 - 51.0 % CERNER MILLENNIUM Mean Cell Volume 88.0 79.0 - 92.0 fL CERNER MILLENNIUM Mean Cell Hemoglobin 29.8 25.6 - 32.2 pg CERNER MILLENNIUM Mean Cell Hemoglobin Concentration 33.9 32.0 - 36.5 gm/dL CERNER MILLENNIUM Platelet 202 145 - 370 x10(3)/mc L CERNER MILLENNIUM RDW Standard Deviation 41.0 35.0 - 46.0 fL CERNER MILLENNIUM RDW coefficient of variation 12.7 10.9 - 14.4 % CERNER MILLENNIUM Mean Platelet Volume 9.7 9.0 - 12.0 fL CERNER MILLENNIUM Blood specimen (specimen) 01/04/2012 3:28 PM EST 01/04/2012 3:28 PM EST Narrative Resulting Agency Comment Spec In Lab Sarthak Pollard MD HEMATOLOGY ORDERABLE S CERBRIAN CAENNIUM * (ABNORMAL) BLOOD GAS 2 ARTERIAL (01/04/2012 2:28 PM EST) pH, Arterial 7.31(L) CERNER MILLENNIUM PCO2, Arterial 53(Critica l) mmHg CERNER MILLENNIUM Comment: Noted by electrical instrumentation technician. MTF PO2, Arterial 296(H) mmHg CERNER MILLENNIUM Bicarbonate, Arterial 26.3(H) mmol/L CERNER MILLENNIUM Base Excess, Arterial 0.1 mmol/L CERNER MILLENNIUM Hgb Blood Gas 10.2(L) gm/dL CERNER MILLENNIUM Comment: Total Hemoglobin (in gm/dL) ?Based on [facility] Hematology ranges: ?Age ?Reference Range Less than 3 days ?14.5 to 22.5 3 days to 2 weeks ? 12.5 to 20.5 2 weeks to 1 month ?10.0 to 18.0 1 to 6 months ?9.4 to 14.0 6 months to 2 years ? 10.5 to 13.5 2 to 6 years ?11.5 to 13.5 6 to 12 years ? 11.5 to 15.5 12 to 18 years (female) 12.0 to 16.0 ? (male) ?? 13.0 to 16.0 > 18 years ? (female) 11.2 to 15.7 ? (male) ?? 13.7 to 17.5 Oxyhemoglobin, Arterial 99.0(H) % CERNER MILLENNIUM Carboxyhemoglob in, Arterial 0.0 % CERNER MILLENNIUM Comment: Nonsmokers: 0.5-1.5% COHB Smokers: Variable, but usually less than 10% Toxic: 20-30% COHB Lethal: Greater than 60% COHB Methemoglobin, Arterial 0.2 % CERNER MILLENNIUM Na Whole Blood 127(L) mmol/L CERNE R MILLENNIUM K Whole Blood 4.8 mmol/L CERNER MILLENNIUM Comment: Please note: Patients with WBC >100,000 may have falsely elevated Potassium levels. Contact the Clinical Chemistry Laboratory if there are any questions. ICa Whole Blood 0.97(L) mmol/L CERN ER MILLENNIUM Comment: Reference Ranges: ?? < 19 yrs: 1.22 - 1.37 mmol/L ? Adults: 1.15 - 1.33 mmol/L Note: ??Total bilirubin higher than 20 mg/dL may lead to falsely low ionized calcium. CL Whole Blood 98 mmol/L CERNE R MILLENNIUM Gluc Whole Bld 156 mg/dL CERNE R MILLENNIUM Comment:Diabetes: >=200 mg/d L plus symptoms. Blood specimen (specimen) 01/04/2012 2:28 PM EST 01/04/2012 2:28 PM EST Andi Rene MD POINT OF CARE TEST O RDERABLES Performing Organization Address [facility] de Phone Number [facility] * FIBRINOGEN (01/04/2012 2:25 PM EST) Fibrinogen 356 200 - 470 mg/dL CERNER MILLENNIUM Comment:Called by: [facility], Read back by: AKANKSHA SAMPSON, Date/Time:01/04/12 14:49. Blood specimen (specimen) 01/04/2012 2:25 PM EST 01/04/2012 2:32 PM EST Narrative Resulting Agency Comment Spec In Lab Sarthak Pollard MD HEMATOLOGY ORDERABLE S Performing Organization Address [facility] de Phone Number [facility] ROBYENNIUM * PLATELET COUNT (01/04/2012 2:25 PM EST) Platelet 281 145 - 370 x10(3)/mcL CERNER MILLENNIUM Blood specimen (specimen) 01/04/2012 2:25 PM EST 01/04/2012 2:32 PM EST Narrative Resulting Agency Comment Spec In Lab Sarthak Pollard MD HEMATOLOGY ORDERABLE S Performing Organization Address [facility] Phone Number [facility] ROBYENNIUM * (ABNORMAL) BLOOD GAS 2 ARTERIAL (01/04/2012 12:59 PM EST) [facility] pH, Arterial 7.36 CERNER MILLENNIUM PCO2, Arterial 48(H) mmHg CERNE R MILLENNIUM PO2, Arterial 197(H) mmHg CERNER MILLENNIUM Bicarbonate, Arterial 26.7(H) mmol/L CERNER MILLENNIUM Base Excess, Arterial 1.3 mmol/L CERNER MILLENNIUM Hgb Blood Gas 13.9 gm/dL CERNER MILLENNIUM Comment: Total Hemoglobin (in gm/dL) ?Based on [facility] Hematology ranges: ?Age ?Reference Range Less than 3 days ?14.5 to 22.5 3 days to 2 weeks ? 12.5 to 20.5 2 weeks to 1 month ?10.0 to 18.0 1 to 6 months ?9.4 to 14.0 6 months to 2 years ? 10.5 to 13.5 2 to 6 years ?11.5 to 13.5 6 to 12 years ? 11.5 to 15.5 12 to 18 years (female) 12.0 to 16.0 ? (male) ?? 13.0 to 16.0 > 18 years ? (female) 11.2 to 15.7 ? (male) ?? 13.7 to 17.5 Oxyhemoglobin, Arterial 98.4(H) % CERNER MILLENNIUM Carboxyhemoglob in, Arterial 0.8 % CERNER MILLENNIUM Comment: Nonsmokers: 0.5-1.5% COHB Smokers: Variable, but usually less than 10% Toxic: 20-30% COHB Lethal: Greater than 60% COHB Methemoglobin, Arterial 0.2 % CERNER MILLENNIUM Na Whole Blood 140 mmol/L CERNE R MILLENNIUM K Whole Blood 4.2 mmol/L CERNER MILLENNIUM Comment: Please note: Patients with WBC >100,000 may have falsely elevated Potassium levels. Contact the Clinical Chemistry Laboratory if there are any questions. ICa Whole Blood 1.23 mmol/L CERN ER MILLENNIUM Comment: Reference Ranges: ?? < 19 yrs: 1.22 - 1.37 mmol/L ? Adults: 1.15 - 1.33 mmol/L Note: ??Total bilirubin higher than 20 mg/dL may lead to falsely low ionized calcium. CL Whole Blood 103 mmol/L CERNE R MILLENNIUM Gluc Whole Bld 105 mg/dL CERNE R MILLENNIUM Comment:Diabetes: >=200 mg/d L plus symptoms. Blood specimen (specimen) 01/04/2012 12:59 PM EST 01/04/2012 12:59 PM EST Andi Rene MD POINT OF CARE TEST O RDERAHERNANDEZ Performing Organization Address City/[facility] Co de Phone Number JILLIANNER ROBYENNIUM * Prepare Coag Factors (Non-Hemophilia) (01/04/2012 12:05 PM EST) Dispensed? Yes CERNER MILLENNIUM Blood specimen (specimen) 01/04/2012 12:05 PM EST 01/04/2012 12:01 PM EST Narrative Resulting Agency Comment Spec In Lab Inna Tovar MD BLOOD BANK PRODUCT O RDERAHERNANDEZ Performing Organization Address City/[facility] Co de Phone Number ARIAN CAENNIUM * Prepare RBC (01/04/2012 12:05 PM EST) Dispensed? Yes CERNER MILLENNIUM Blood specimen (specimen) 01/04/2012 12:05 PM EST 01/04/2012 12:01 PM EST Narrative Resulting Agency Comment Spec In Lab Inna Tovar MD BLOOD BANK PRODUCT O RDERAHERNANDEZ CERNER ROBYENNIUM * (ABNORMAL) DIFFERENTIAL, MANUAL (01/04/2012 4:40 AM EST) Neutrophil % Manual 59 34 - 71 % CERNER MILLENNIUM Band % 1 0 - 12 % CERNER MILLENNIUM Lymphocyte Manual 28 19 - 53 % CE RNER MILLENNIUM Monocyte Manual 5 4 - 13 % CERN ER MILLENNIUM Eosinophil Manual 3 0 - 7 % CE RNER MILLENNIUM Basophil Manual 1 0 - 2 % CERN ER MILLENNIUM Metamyelocyte Manual 2(H) 0 - 0 % CERNER MILLENNIUM Myelocyte Manual 1(H) 0 - 0 % CER NER MILLENNIUM Neutrophil Absolute (ANC) - Manual 9.1(H) 1.5 - 6.3 x10(3)/mc L CERNER MILLENNIUM Band Abs 0.2 0.2 - 0.6 x10(3)/mc L CERNER MILLENNIUM Neutrophil Absolute (ANC) - Automated 9.28(H) 1.50 - 6.30 x10(3)/mc L CERNER MILLENNIUM Lymph Absolute Manual 4.3(H) 1.0 - 3.6 x10(3)/mc L CERNER MILLENNIUM Monocyte Absolute Manual 0.8 0.2 - 1.0 x10(3)/mc L CERNER MILLENNIUM Eos Absolute Manual 0.5 0.0 - 0.5 x10(3)/mc L CERNER MILLENNIUM Baso Absolute Manual 0.2 0.0 - 0.2 x10(3)/mc L CERNER MILLENNIUM [place] Absolute Manual 0.3(H) 0.0 - 0.0 x10(3)/mc L CERNER MILLENNIUM Myelo Absolute Manual 0.2(H) 0.0 - 0.0 x10(3)/mc L CERNER MILLENNIUM Total Cells Ct 100 CERNE R MILLENNIUM Plat estimate Normal CERNER MILLENNIUM RBC Morphology Normal CERNE R MILLENNIUM Plat, Giant Less than 1 /HPF CERNER MILLENNIUM Blood specimen (specimen) 01/04/2012 4:40 AM EST 01/04/2012 4:52 AM EST Narrative Resulting Agency Comment Spec In Lab Remigio Ceron MD HEMATOLOGY ORDERABLE S CERNER MILLENNIUM * (ABNORMAL) BMP w/fasting Glucose (01/04/2012 4:40 AM EST) [facility] Glucose Fasting 113(H) 65 - 99 mg/dL CERNER MILLENNIUM Comment: [...] of Diabetes Mellitus, Position Statement from the [place] [employer]. ??Diabetes Care, Volume 33, Supplement 1, Nov 2009 Blood Urea Nitrogen 10 10 - 20 mg/dL CERNER MILLENNIUM Creatinine 0.86 0.80 - 1.50 mg/dL CERNER MILLENNIUM Sodium 135 135 - 145 mmol/L CERNER MILLENNIUM Potassium 4.2 3.5 - 5.0 mmol/L CERNER MILLENNIUM Comment: Please note: ??Patients with WBC >100,000 may have falsely elevated Potassium levels. ??For accurate Potassium quantification in these patients send serum separator tube (gold top) for subsequent determinations. ??Contact the Clinical Chemistry Laboratory if there are any questions. Chloride 99 98 - 107 mmol/L CERNER MILLENNIUM Carbon Dioxide 27 22 - 31 mmol/L CERNER MILLENNIUM Anion Gap 9 5 - 15 mmol/L CERNER MILLENNIUM Calcium 9.7 8.5 - 10.5 mg/dL CERNER MILLENNIUM Est Glomerular Filtration Rate >60 >=60 CERNER MILLENNIUM Comment: The National Kidney Disease Education Program (NKDEP) has recommended all laboratories report estimated GFR (eGFR) along with plasma creatinine measurements to assist you with recognition of early kidney disease. Caveats: ??Plasma creatinine should be at steady-state (unchanged within the past week). For patients multiply eGFR by 1.2. The MDRD equation has not been validated for pediatric patients and is only valid for patients with age >= 18 years. At present, NKDEP does NOT recommend using the MDRD equation for drug dosing purposes and pharmacists should continue to use their current dosing methods. In addition, numerical eGFR values greater than 60 ml/min/1.73 square meters should be treated as > 60, and not an exact number due to greater inaccuracies at these higher values. Per NKDEP, they classify normal renal function as any GFR >60ml/min/1.73 square meters; chronic kidney disease when GFR <60, and renal failure when GFR <15. ??This calculation may not be valid for patients with atypical muscle mass (very lean or obese), acute renal failure, and in patients with diabetic kidney disease. References: http://nkdep.nih.gov/resources/NKDEP_Suggestn4Labs_0606_508.pdf http://www.kidney.org/professionals/kls/pdf/faq_gfr.pdf Blood specimen (specimen) 01/04/2012 4:40 AM EST 01/04/2012 4:52 AM EST Narrative Resulting Agency Comment Spec In Lab Andi Rene MD CHEMISTRY ORDERABLES CERNER MILLENNIUM * (ABNORMAL) CBC (with Diff) (01/04/2012 4:40 AM EST) White Blood Cell 15.5(H) 4.0 - 10.0 x10(3)/mc L CERNER MILLENNIUM Red Blood Cell 4.63 4.63 - 6.08 x10(6)/mc L CERNER MILLENNIUM Hemoglobin 13.9 13.7 - 17.5 gm/dL CERNER MILLENNIUM Hematocrit 40.6 40.0 - 51.0 % CERNER MILLENNIUM Mean Cell Volume 87.7 79.0 - 92.0 fL CERNER MILLENNIUM Mean Cell Hemoglobin 30.0 25.6 - 32.2 pg CERNER MILLENNIUM Mean Cell Hemoglobin Concentration 34.2 32.0 - 36.5 gm/dL CERNER MILLENNIUM Platelet 326 145 - 370 x10(3)/mc L CERNER MILLENNIUM RDW Standard Deviation 40.4 35.0 - 46.0 fL CERNER MILLENNIUM RDW coefficient of variation 12.6 10.9 - 14.4 % CERNER MILLENNIUM Mean Platelet Volume 9.8 9.0 - 12.0 fL CERNER MILLENNIUM Blood specimen (specimen) 01/04/2012 4:40 AM EST 01/04/2012 4:52 AM EST Narrative Resulting Agency Comment Spec In Lab Remigio Ceron MD HEMATOLOGY ORDERABLE S Performing Organization Address [facility] Co de Phone Number [facility] MILLENNIUM * (ABNORMAL) APTT (01/04/2012 4:40 AM EST) Partial Thromboplastin Time 103(H) 25 - 35 sec CERNER MILLENNIUM Comment: Recommended therapeutic PTT range for full dose unfractionated heparin is 80-114 seconds. Blood specimen (specimen) 01/04/2012 4:40 AM EST 01/04/2012 4:52 AM EST Narrative Resulting Agency Comment Spec In Lab Sarthak Pollard MD HEMATOLOGY ORDERABLE S Performing Organization Address [facility] de Phone Number [facility] MILLENNIUM * (ABNORMAL) APTT (01/03/2012 7:38 PM EST) Partial Thromboplastin Time 98(H) 25 - 35 sec [facility] M[facility] Comment: Recommended therapeutic PTT range for full dose unfractionated heparin is 80-114 seconds. Blood specimen (specimen) 01/03/2012 7:38 PM EST 01/03/2012 7:53 PM EST Narrative Resulting Agency Comment Spec In Lab Sarthak Pollard MD HEMATOLOGY ORDERABLE S Performing Organization Address [facility] de Phone Number [facility] MILLENNIUM * (ABNORMAL) APTT (01/03/2012 12:17 PM EST) Partial Thromboplastin Time 101(H) 25 - 35 sec CERNER MILLENNIUM Comment: Recommended therapeutic PTT range for full dose unfractionated heparin is 80-114 seconds. Blood specimen (specimen) 01/03/2012 12:17 PM EST 01/03/2012 12:26 PM EST Narrative Resulting Agency Comment Spec In Lab Sarthak Pollard MD HEMATOLOGY ORDERABLE S CERNER MILLENNIUM * (ABNORMAL) DIFFERENTIAL, MANUAL (01/03/2012 6:15 AM EST) Neutrophil % Manual 67 34 - 71 % CERNER MILLENNIUM Band % 2 0 - 12 % CERNER MILLENNIUM Lymphocyte Manual 25 19 - 53 % CERNER MILLENNIUM Monocyte Manual 4 4 - 13 % CERN ER MILLENNIUM Basophil Manual 1 0 - 2 % CERN ER MILLENNIUM Myelocyte Manual 1(H) 0 - 0 % CERNER MILLENNIUM Neutrophil Absolute (ANC) - Manual 8.1(H) 1.5 - 6.3 x10(3)/mcL CERNER MILLENNIUM Band Abs 0.2 0.2 - 0.6 x10(3)/mcL CERNER MILLENNIUM Neutrophil Absolute (ANC) - Automated 8.31(H) 1.50 - 6.30 x10(3)/mcL CERNER MILLENNIUM Lymph Absolute Manual 3.0 1.0 - 3.6 x10(3)/mcL CERNER MILLENNIUM Monocyte Absolute Manual 0.5 0.2 - 1.0 x10(3)/mcL CERNER MILLENNIUM Baso Absolute Manual 0.1 0.0 - 0.2 x10(3)/mcL CERNER MILLENNIUM Myelo Absolute Manual 0.1(H) 0.0 - 0.0 x10(3)/mcL CERNER MILLENNIUM Total Cells Ct 100 CERNE R MILLENNIUM Plat estimate Normal CERNER MILLENNIUM RBC Morphology Normal CERNE R MILLENNIUM Blood specimen (specimen) 01/03/2012 6:15 AM EST 01/03/2012 6:23 AM EST Narrative Resulting Agency Comment Spec In Lab Remigio Ceron MD HEMATOLOGY ORDERABLE S CERNER MILLENNIUM * ANTIBODY SCREEN (01/03/2012 6:15 AM EST) Ab Screen Interp Negative CERNER MILLENNIUM Expires at [id number] on: [id number] [facility] Blood specimen (specimen) 01/03/2012 6:15 AM EST 01/03/2012 6:35 AM EST Narrative Resulting Agency Comment Spec In Lab Sarthak Pollard MD BLOOD BANK LAB ORDER RANDELL Performing Organization Address [facility] de Phone Number [facility] * ABO/RH TYPING (01/03/2012 6:15 AM EST) ABORH Type A Pos [facility] Blood specimen (specimen) 01/03/2012 6:15 AM EST 01/03/2012 6:35 AM EST Narrative Resulting Agency Comment Spec In Lab Sarthak Pollard MD BLOOD BANK LAB ORDER RANDELL Performing Organization Address [facility] de Phone Number [facility] * (ABNORMAL) APTT (01/03/2012 6:15 AM EST) Partial Thromboplastin Time 96(H) 25 - 35 sec [facility] Comment: Recommended therapeutic PTT range for full dose unfractionated heparin is 80-114 seconds. Blood specimen (specimen) 01/03/2012 6:15 AM EST 01/03/2012 6:23 AM EST Narrative Resulting Agency Comment Spec In Lab Sarthak Pollard MD HEMATOLOGY ORDERABLE S Performing Organization Address [facility] de Phone Number [facility] * (ABNORMAL) BMP w/fasting Glucose (01/03/2012 6:15 AM EST) Glucose Fasting 116(H) 65 - 99 mg/dL [facility] Comment: ?Fasting* Glucose Interpretive Criteria Normal ?65-99 [...] of Diabetes Mellitus, Position Statement from the [place] [employer]. ??Diabetes Care, Volume 33, Supplement 1, Nov 2009 Blood Urea Nitrogen 10 10 - 20 mg/dL CERNER MILLENNIUM Creatinine 0.77(L) 0.80 - 1.50 mg/dL CERNER MILLENNIUM Sodium 138 135 - 145 mmol/L CERNER [...] 5 - 15 mmol/L CERNER MILLENNIUM Calcium 9.8 8.5 - 10.5 mg/dL CERNER MILLENNIUM Est Glomerular Filtration Rate >60 >=60 CERNER MILLENNIUM Comment: The National Kidney Disease Education Program (NKDEP) has recommended all laboratories report estimated GFR (eGFR) along with plasma creatinine measurements to assist you with recognition of early kidney disease. Caveats: ??Plasma creatinine should be at steady-state (unchanged within the past week). For patients multiply eGFR by 1.2. The MDRD equation has not been validated for pediatric patients and is only valid for patients with age >= 18 years. At present, NKDEP does NOT recommend using the MDRD equation for drug dosing purposes and pharmacists should continue to use their current dosing methods. In addition, numerical eGFR values greater than 60 ml/min/1.73 square meters should be treated as > 60, and not an exact number due to greater inaccuracies at these higher values. Per NKDEP, they classify normal renal function as any GFR >60ml/min/1.73 square meters; chronic kidney disease when GFR <60, and renal failure when GFR <15. ??This calculation may not be valid for patients with atypical muscle mass (very lean or obese), acute renal failure, and in patients with diabetic kidney disease. References: http://nkdep.nih.gov/resources/NKDEP_Suggestn4Labs_0606_508.pdf http://www.kidney.org/professionals/kls/pdf/faq_gfr.pdf Blood specimen (specimen) 01/03/2012 6:15 AM EST 01/03/2012 6:23 AM EST Narrative Resulting Agency Comment Spec In Lab Andi Rene MD CHEMISTRY ORDERABLES CERNER MILLENNIUM * (ABNORMAL) CBC (with Diff) (01/03/2012 6:15 AM EST) White Blood Cell 12.0(H) 4.0 - 10.0 x10(3)/mc L CERNER MILLENNIUM Red Blood Cell 4.68 4.63 - 6.08 x10(6)/mc L CERNER MILLENNIUM Hemoglobin 14.1 13.7 - 17.5 gm/dL CERNER MILLENNIUM Hematocrit 40.8 40.0 - 51.0 % CERNER MILLENNIUM Mean Cell Volume 87.2 79.0 - 92.0 fL CERNER MILLENNIUM Mean Cell Hemoglobin 30.1 25.6 - 32.2 pg CERNER MILLENNIUM Mean Cell Hemoglobin Concentration 34.6 32.0 - 36.5 gm/dL CERNER MILLENNIUM Platelet 295 145 - 370 x10(3)/mc L CERNER MILLENNIUM RDW Standard Deviation 40.5 35.0 - 46.0 fL CERNER MILLENNIUM RDW coefficient of variation 12.6 10.9 - 14.4 % CERNER MILLENNIUM Mean Platelet Volume 9.9 9.0 - 12.0 fL CERNER MILLENNIUM Blood specimen (specimen) 01/03/2012 6:15 AM EST 01/03/2012 6:23 AM EST Narrative Resulting Agency Comment Spec In Lab Remigio Ceron MD HEMATOLOGY ORDERABLE S CERNER MILLENNIUM * (ABNORMAL) APTT (01/02/2012 11:21 PM EST) Partial Thromboplastin Time 69(H) 25 - 35 sec [facility] MILLENNIUM Comment: Recommended therapeutic PTT range for full dose unfractionated heparin is 80-114 seconds. Blood specimen (specimen) 01/02/2012 11:21 PM EST 01/02/2012 11:24 PM EST Narrative Resulting Agency Comment Spec In Lab Sarthak Pollard MD HEMATOLOGY ORDERABLE S Performing Organization Address City/[facility] Co de Phone Number [facility] * (ABNORMAL) APTT (01/02/2012 5:32 PM EST) Partial Thromboplastin Time 53(H) 25 - 35 sec [facility] Comment: Recommended therapeutic PTT range for full dose unfractionated heparin is 80-114 seconds. Blood specimen (specimen) 01/02/2012 5:32 PM EST 01/02/2012 5:38 PM EST Narrative Resulting Agency Comment Spec In Lab Sarthak Pollard MD HEMATOLOGY ORDERABLE S Performing Organization Address [facility] de Phone Number [facility] * (ABNORMAL) APTT (01/02/2012 11:56 AM EST) Partial Thromboplastin Time 46(H) 25 - 35 sec [facility] Comment: Recommended therapeutic PTT range for full dose unfractionated heparin is 80-114 seconds. Blood specimen (specimen) 01/02/2012 11:56 AM EST 01/02/2012 12:05 PM EST Narrative Resulting Agency Comment Spec In Lab Sarthak Pollard MD HEMATOLOGY ORDERABLE S Performing Organization Address [facility] Co de Phone Number [facility] * (ABNORMAL) DIFFERENTIAL, AUTOMATED (01/02/2012 6:02 AM EST) Neutrophil % 64.4 34.0 - 71.0 % [facility] Neutrophil Absolute 6.49(H) 1.50 - 6.30 x10(3)/mc L CERNER MILLENNIUM Lymph % 22.9 19.0 - 53.0 % CERNER MILLENNIUM Lymphocytes Abs 2.3 1.0 - 3.6 x10(3)/mc L CERNER MILLENNIUM Monocyte % 9.8 4.0 - 13.0 % CERNER MILLENNIUM Monocyte Abs 1.0 0.2 - 1.0 x10(3)/mc L CERNER MILLENNIUM Eos % 1.4 0.0 - 7.0 % CERNER MILLENNIUM Eosinophils Abs 0.1 0.0 - 0.5 x10(3)/mc L CERNER MILLENNIUM Basophil % 0.5 0.0 - 2.0 % CERNER MILLENNIUM Baso Absolute 0.0 0.0 - 0.2 x10(3)/mc L CERNER MILLENNIUM Immature Gran % 1.00(H) 0.00 - 0.66 % CERNER MILLENNIUM Comment: Immature granulocytes(IG's)percentage and absolute count will include metamyelocytes, myelocytes, and promyelocytes. Blood smears from CBCs yielding IG's will be scanned manually for concordance. If this scan disagrees with the automated IG or if promyelocytes are noted, a manual differential will be performed. Immature Gran Absolute 0.10(H) 0.00 - 0.05 x10(3)/mc L CERNER MILLENNIUM Blood specimen (specimen) 01/02/2012 6:02 AM EST 01/02/2012 6:29 AM EST Remigio Ceron MD HEMATOLOGY ORDERABLE S [facility] * (ABNORMAL) APTT (01/02/2012 6:02 AM EST) Partial Thromboplastin Time 42(H) 25 - 35 sec CERNER MILLENNIUM Comment: Recommended therapeutic PTT range for full dose unfractionated heparin is 80-114 seconds. Blood specimen (specimen) 01/02/2012 6:02 AM EST 01/02/2012 6:29 AM EST Narrative Resulting Agency Comment Spec In Lab Sarthak Pollard MD HEMATOLOGY ORDERABLE S CERBRIAN CAENNIUM * (ABNORMAL) BMP w/fasting Glucose (01/02/2012 6:02 AM EST) Glucose Fasting 113(H) 65 - 99 mg/dL CERNER MILLENNIUM Comment: [...] of Diabetes Mellitus, Position Statement from the [place] [employer]. ??Diabetes Care, Volume 33, Supplement 1, Nov 2009 Blood Urea Nitrogen 10 10 - 20 mg/dL CERNER MILLENNIUM Creatinine 0.68(L) 0.80 - 1.50 mg/dL CERNER MILLENNIUM Sodium 139 135 - 145 mmol/L CERNER MILLENNIUM Potassium 3.8 3.5 - 5.0 mmol/L CERNER MILLENNIUM Comment: [...] - 31 mmol/L CERNER MILLENNIUM Anion Gap 13 5 - 15 mmol/L CERNER MILLENNIUM Calcium 9.5 8.5 - 10.5 mg/dL CERNER MILLENNIUM Est Glomerular Filtration Rate >60 >=60 CERNER MILLENNIUM Comment: The National Kidney Disease Education Program (NKDEP) has recommended all laboratories report estimated GFR (eGFR) along with plasma creatinine measurements to assist you with recognition of early kidney disease. Caveats: ??Plasma creatinine should be at steady-state (unchanged within the past week). For patients multiply eGFR by 1.2. The MDRD equation has not been validated for pediatric patients and is only valid for patients with age >= 18 years. At present, NKDEP does NOT recommend using the MDRD equation for drug dosing purposes and pharmacists should continue to use their current dosing methods. In addition, numerical eGFR values greater than 60 ml/min/1.73 square meters should be treated as > 60, and not an exact number due to greater inaccuracies at these higher values. Per NKDEP, they classify normal renal function as any GFR >60ml/min/1.73 square meters; chronic kidney disease when GFR <60, and renal failure when GFR <15. ??This calculation may not be valid for patients with atypical muscle mass (very lean or obese), acute renal failure, and in patients with diabetic kidney disease. References: http://nkdep.nih.gov/resources/NKDEP_Suggestn4Labs_[email or web address].pdf http://www.kidney.org/professionals/kls/pdf/faq_gfr.pdf Blood specimen (specimen) 01/02/2012 6:02 AM EST 01/02/2012 6:29 AM EST Narrative Resulting Agency Comment Spec In Lab Andi Rene MD CHEMISTRY ORDERABLES [facility] * (ABNORMAL) CBC (with Diff) (01/02/2012 6:02 AM EST) White Blood Cell 10.1(H) 4.0 - 10.0 x10(3)/mc L [facility] Red Blood Cell 4.42(L) 4.63 - 6.08 x10(6)/mc L [facility]ILLENNI[facility] Hemoglobin 13.1(L) 13.7 - 17.5 gm/dL [facility]ILLENNI[facility] Hematocrit 39.0(L) 40.0 - 51.0 % [facility] MILLENNIUM Mean Cell Volume 88.2 79.0 - 92.0 fL [facility] MILLENNI[facility] Mean Cell Hemoglobin 29.6 25.6 - 32.2 pg [facility] MILLENNI[facility] Mean Cell Hemoglobin Concentration 33.6 32.0 - 36.5 gm/dL [facility] MILLENNIUM Platelet 266 145 - 370 x10(3)/mc L [facility] MILLENNI[facility] RDW Standard Deviation 40.8 35.0 - 46.0 fL [facility]ILLENNI[facility] RDW coefficient of variation 12.6 10.9 - 14.4 % [facility]ILLENNI[facility] Mean Platelet Volume 10.1 9.0 - 12.0 fL [facility] Blood specimen (specimen) 01/02/2012 6:02 AM EST 01/02/2012 6:29 AM EST Narrative Resulting Agency Comment Spec In Lab Remigio Ceron MD HEMATOLOGY ORDERABLE S [facility] * (ABNORMAL) APTT (01/02/2012 12:23 AM EST) Partial Thromboplastin Time 36(H) 25 - 35 sec [facility]ILL[facility] Comment: Recommended therapeutic PTT range for full dose unfractionated heparin is 80-114 seconds. Blood specimen (specimen) 01/02/2012 12:23 AM EST 01/02/2012 12:28 AM EST Narrative Resulting Agency Comment Spec In Lab Sarthak Pollard MD HEMATOLOGY ORDERABLE S Performing Organization Address City/[facility]/ZIP Co de Phone Number [facility] CAENNI[facility] * (ABNORMAL) DIFFERENTIAL, AUTOMATED (01/01/2012 6:37 PM EST) Neutrophil % 69.8 34.0 - 71.0 % [facility] MILLENNI[facility] Neutrophil Absolute 7.71(H) 1.50 - 6.30 x10(3)/mc L [facility] MILLENNIUM Lymph % 19.5 19.0 - 53.0 % [facility] MILLENNI[facility] Lymphocytes Abs 2.2 1.0 - 3.6 x10(3)/mc L [facility] MILLENNIUM Monocyte % 8.2 4.0 - 13.0 % [facility] MILLENNI[facility] Monocyte Abs 0.9 0.2 - 1.0 x10(3)/mc L [facility] MILLENNI[facility] Eos % 1.4 0.0 - 7.0 % [facility] MILLENNIUM Eosinophils Abs 0.2 0.0 - 0.5 x10(3)/mc L [facility] MILLENNIUM Basophil % 0.5 0.0 - 2.0 % [facility] MILLENNIUM Baso [...] differential will be performed. Immature Gran Absolute 0.07(H) 0.00 - 0.05 x10(3)/mc L [facility] MILLENNI[facility] Blood specimen (specimen) 01/01/2012 6:37 PM EST 01/01/2012 6:43 PM EST Sarthak Pollard MD HEMATOLOGY ORDERABLE S [facility] * (ABNORMAL) CBC (with Diff) (01/01/2012 6:37 PM EST) White Blood Cell 11.0(H) 4.0 - 10.0 x10(3)/mc L [facility] MILLENNIUM Red Blood Cell 4.32(L) 4.63 - 6.08 x10(6)/mc L [facility] MILLENNIUM Hemoglobin 13.1(L) 13.7 - 17.5 gm/dL [facility] MILLENNIUM Hematocrit 38.1(L) 40.0 - 51.0 % [facility] MILLENNIUM Mean Cell Volume 88.2 79.0 - 92.0 fL [facility] MILLENNIUM Mean Cell Hemoglobin 30.3 25.6 - 32.2 pg [facility] MILLENNIUM Mean Cell Hemoglobin Concentration 34.4 32.0 - 36.5 gm/dL [facility] MILLENNIUM Platelet 262 145 - 370 x10(3)/mc L [facility] MILLENNIUM RDW Standard Deviation 41.6 35.0 - 46.0 fL [facility] MILLENNIUM RDW coefficient of variation 12.9 10.9 - 14.4 % [facility] MILLENNIUM Mean Platelet Volume 10.1 9.0 - 12.0 fL [facility] Blood specimen (specimen) 01/01/2012 6:37 PM EST 01/01/2012 6:43 PM EST Narrative Resulting Agency Comment Spec In Lab Sarthak Pollard MD HEMATOLOGY ORDERABLE S Performing Organization Address [facility] Co de Phone Number [facility] * APTT (01/01/2012 6:37 PM EST) Partial Thromboplastin Time 32 25 - 35 sec [facility] Comment: Recommended therapeutic PTT range for full dose unfractionated heparin is 80-114 seconds. Blood specimen (specimen) 01/01/2012 6:37 PM EST 01/01/2012 6:43 PM EST Narrative Resulting Agency Comment Spec In Lab Sarthak Pollard MD HEMATOLOGY ORDERABLE S Performing Organization Address [facility] Co de Phone Number [facility] * POCT GLUCOSE LAB USE ONLY (01/01/2012 12:02 PM EST) Glucose, POC 99 60 - 199 mg/dL [facility] Comment: Supplemental ranges: <110 mg/dL before meals <200 mg/dL all other times of the day Blood specimen (specimen) 01/01/2012 12:02 PM EST 01/01/2012 12:02 PM EST Andi Rene MD POINT OF CARE TEST O RDERABLES Performing Organization Address [facility] Co de Phone Number [facility] * (ABNORMAL) APTT (01/01/2012 11:59 AM EST) Partial Thromboplastin Time 108(H) 25 - 35 sec [facility] Comment: Recommended therapeutic PTT range for full dose unfractionated heparin is 80-114 seconds. Blood specimen (specimen) 01/01/2012 11:59 AM EST 01/01/2012 12:06 PM EST Narrative Resulting Agency Comment Spec In Lab Andi Rene MD HEMATOLOGY ORDERABLE S [facility] CAENNIUM * XR chest routine PA & lateral (01/01/2012 11:30 AM EST) Anatomical Region Laterality Modality Chest N/A Radiographic Ofelia ging 01/01/2012 11:3 0 AM EST Impressions 01/01/2012 3:33 PM EST IMPRESSION: Normal. Narrative 01/01/2012 3:33 PM EST PA AND LATERAL CHEST, JANUARY 01, 2012: HISTORY: ??Preop. COMPARISON: December 30. FINDINGS: There is no interval change. ??The lungs are clear. ??Heart size is within the upper limits of normal. Procedure Note Erick Bobo MD - 01/01/2012 PA AND LATERAL CHEST, JANUARY 01, 2012: HISTORY: Preop. COMPARISON: December 30. FINDINGS: There is no interval change. The lungs are clear. Heart sizeis within the upper limits of normal. IMPRESSION IMPRESSION: Normal. Andi Rene MD IMG DX ORDERABLES * (ABNORMAL) DIFFERENTIAL, AUTOMATED (01/01/2012 5:19 AM EST) Neutrophil % 70.3 34.0 - 71.0 % [facility] MILLENNIUM Neutrophil Absolute 10.76(H) 1.50 - 6.30 x10(3)/mc L CERNER MILLENNIUM Lymph % 18.2(L) 19.0 - 53.0 % [facility] MILLENNIUM Lymphocytes Abs 2.8 1.0 - 3.6 x10(3)/mc L [facility] MILLENNIUM Monocyte % 9.7 4.0 - 13.0 % [facility] MILLENNIUM Monocyte Abs 1.5(H) 0.2 - 1.0 x10(3)/mc L [facility] MILLENNIUM Eos % 1.0 0.0 - 7.0 % [facility] MILLENNIUM Eosinophils Abs 0.2 0.0 - 0.5 x10(3)/mc L [facility] MILLENNIUM Basophil % 0.3 0.0 - 2.0 % CERNER MILLENNIUM Baso Absolute 0.0 0.0 - 0.2 x10(3)/mc L [facility] Immature Gran % 0.50 0.00 - 0.66 % [facility] Comment: Immature granulocytes(IG's)percentage and absolute count will include metamyelocytes, myelocytes, and promyelocytes. Blood smears from CBCs yielding IG's will be scanned manually for concordance. If this scan disagrees with the automated IG or if promyelocytes are noted, a manual differential will be performed. Immature Gran Absolute 0.07(H) 0.00 - 0.05 x10(3)/mc L [facility] Blood specimen (specimen) 01/01/2012 5:19 AM EST 01/01/2012 5:36 AM EST Remigio Ceron MD HEMATOLOGY ORDERABLE S Performing Organization Address [facility]/ZIP Co de Phone Number [facility] * (ABNORMAL) APTT (01/01/2012 5:19 AM EST) Partial Thromboplastin Time 105(H) 25 - 35 sec [facility] Comment: Recommended therapeutic PTT range for full dose unfractionated heparin is 80-114 seconds. Blood specimen (specimen) 01/01/2012 5:19 AM EST 01/01/2012 5:36 AM EST Narrative Resulting Agency Comment Spec In Lab Remigio Ceron MD HEMATOLOGY ORDERABLE S Performing Organization Address [facility] Co de Phone Number [facility] * (ABNORMAL) BMP w/fasting Glucose (01/01/2012 5:19 AM EST) Glucose Fasting 121(H) 65 - 99 mg/dL [facility] Comment: ?Fasting* Glucose Interpretive Criteria Normal ?65-99 [...] of Diabetes Mellitus, Position Statement from the [place] [employer]. ??Diabetes Care, Volume 33, Supplement 1, Nov 2009 Blood Urea Nitrogen 10 10 - 20 mg/dL CERNER MILLENNIUM Creatinine 0.82 0.80 - 1.50 mg/dL [facility] MILLENNIUM Sodium 136 135 - 145 mmol/L [facility] MILLENNIUM Potassium 3.7 3.5 - 5.0 mmol/L [facility] MILLENNIUM Comment: Please note: ??Patients with WBC >100,000 may have falsely elevated Potassium levels. ??For accurate Potassium quantification in these patients send serum separator tube (gold top) for subsequent determinations. ??Contact the Clinical Chemistry Laboratory if there are any questions. Chloride 100 98 - 107 mmol/L CERNER MILLENNIUM Carbon Dioxide 27 22 - 31 mmol/L [facility]ERNER MILLENNIUM Anion Gap 9 5 - 15 mmol/L [facility]ERN[facility] MILLENNIUM Calcium 9.2 8.5 - 10.5 mg/dL CERNER MILLENNIUM Est Glomerular Filtration Rate >60 >=60 [facility] MILLENNIUM Comment: The National Kidney Disease Education Program (NKDEP) has recommended all laboratories report estimated GFR (eGFR) along with plasma creatinine measurements to assist you with recognition of early kidney disease. Caveats: ??Plasma creatinine should be at steady-state (unchanged within the past week). For patients multiply eGFR by 1.2. The MDRD equation has not been validated for pediatric patients and is only valid for patients with age >= 18 years. At present, NKDEP does NOT recommend using the MDRD equation for drug dosing purposes and pharmacists should continue to use their current dosing methods. In addition, numerical eGFR values greater than 60 ml/min/1.73 square meters should be treated as > 60, and not an exact number due to greater inaccuracies at these higher values. Per NKDEP, they classify normal renal function as any GFR >60ml/min/1.73 square meters; chronic kidney disease when GFR <60, and renal failure when GFR <15. ??This calculation may not be valid for patients with atypical muscle mass (very lean or obese), acute renal failure, and in patients with diabetic kidney disease. References: http://nkdep.nih.gov/resources/NKDEP_Suggestn4Labs_0606_508.pdf http://www.kidney.org/professionals/kls/pdf/faq_gfr.pdf Blood specimen (specimen) 01/01/2012 5:19 AM EST 01/01/2012 5:36 AM EST Narrative Resulting Agency Comment Spec In Lab Andi Rene MD CHEMISTRY ORDERABLES [facility] * (ABNORMAL) CBC (with Diff) (01/01/2012 5:19 AM EST) White Blood Cell 15.3(H) 4.0 - 10.0 x10(3)/mc L [facility] MILLENNIUM Red Blood Cell 4.09(L) 4.63 - 6.08 x10(6)/mc L [facility] MILLENNIUM Hemoglobin 12.4(L) 13.7 - 17.5 gm/dL [facility] MILLENNIUM Hematocrit 36.0(L) 40.0 - 51.0 % [facility] MILLENNIUM Mean Cell Volume 88.0 79.0 - 92.0 fL [facility] MILLENNIUM Mean Cell Hemoglobin 30.3 25.6 - 32.2 pg CERNER MILLENNIUM Mean Cell Hemoglobin Concentration 34.4 32.0 - 36.5 gm/dL CERNER MILLENNIUM Platelet 219 145 - 370 x10(3)/mc L CERNER MILLENNIUM RDW Standard Deviation 42.4 35.0 - 46.0 fL [facility] MILLENNIUM RDW coefficient of variation 13.1 10.9 - 14.4 % [facility]ER MILLENNIUM Mean Platelet Volume 10.1 9.0 - 12.0 fL [facility] MILLENNIUM Blood specimen (specimen) 01/01/2012 5:19 AM EST 01/01/2012 5:36 AM EST Narrative Resulting Agency Comment Spec In Lab Remigio Ceron MD HEMATOLOGY ORDERABLE S [facility] * (ABNORMAL) APTT (12/31/2011 11:01 PM EST) Partial Thromboplastin Time 72(H) 25 - 35 sec [facility] NELSON Comment: Recommended therapeutic PTT range for full dose unfractionated heparin is 80-114 seconds. Blood specimen (specimen) 12/31/2011 11:01 PM EST 12/31/2011 11:18 PM EST Narrative Resulting Agency Comment Spec In Lab Andi Rene MD HEMATOLOGY ORDERABLE S [facility] NELSON * Upper Respiratory Culture Throat (12/31/2011 9:55 PM EST) Upper Respiratory Culture ? Patient Name: ZACK HEART, GEOVANNA Llanos ? Ordered By: ANDI RENE ? MR#: [id number] ?LOC: ??[facility] ? /Sex: ??1975 (36 years), ? Male ? PROCEDURE: Upper Respiratory Culture ?SOURCE: Throat ? COLLECTED: 12/31/2011 21:55 ? STARTED: 12/31/2011 22:16 ? FINAL REPORT ? Final Report ? Verified:2011 08:12 ? Beta Hemolytic Streptococci, Group A isolated ? PRELIMINARY REPORT ? Preliminary Report ? Verified:2011 09:46 ? Beta Hemolytic Streptococci, Group A isolated ? [facility] Specimen from throat (specimen) 12/31/2011 9:55 PM EST 12/31/2011 10:16 PM EST Narrative Resulting Agency Comment Spec In Lab Andi Rene MD MICROBIOLOGY - GENER AL ORDERABLES Performing Organization Address [facility] Co de Phone Number [facility] * (ABNORMAL) APTT (12/31/2011 4:34 PM EST) Partial Thromboplastin Time 66(H) 25 - 35 sec [facility] Comment: Recommended therapeutic PTT range for full dose unfractionated heparin is 80-114 seconds. Blood specimen (specimen) 12/31/2011 4:34 PM EST 12/31/2011 4:39 PM EST Narrative Resulting Agency Comment Spec In Lab Andi Rene MD HEMATOLOGY ORDERABLE S Performing Organization Address [facility] Co de Phone Number [facility] * Duplex Study for DVT, Bilat legs (12/31/2011 11:07 AM EST) VB Text Report Department: Vascular Surgery Lab Patient: [id number] (GEOVANNA DIXON) CPT Code: 02594 ICD-9: 780.6 Referring Physician: ANDI RENE Indication: Fever of unknown origin ICD9 Diagnose Code: 780.6 RIGHT: Patent common femoral vein and popliteal vein with spontaneous, respirophasic Doppler waveforms that respond normally to augmentation maneuvers. The common femoral vein, saphenofemoral junction, femoral vein through the thigh and the popliteal vein are fully compressible. Patent posterior tibial and peroneal veins with no evidence of thrombus. LEFT: Patent common femoral vein and popliteal vein with spontaneous, respirophasic Doppler waveforms that respond normally to augmentation maneuvers. The common femoral vein, saphenofemoral junction, femoral vein through the thigh and the popliteal vein are fully compressible. Patent posterior tibial and peroneal veins with no evidence of thrombus. Interpretation: RIGHT: No evidence of lower extremity deep vein thrombosis. LEFT: No evidence of lower extremity deep vein thrombosis. Comparison: No previous study in our vascular lab database for comparison. Signed by ZAK BARCENAS on 2012-01-02 12:57:15 PM [facility] VB Text Report End of Report [facility] 12/31/2011 11:0 7 AM EST Andi Rene MD VASCULAR ORDERABLES [facility] * SMEAR REVIEW REPORT (12/31/2011 10:39 AM EST) Smear Review Report ? [facility] ? Provider: ?? ANDI RENE ?Pt. Name: ?? GEOVANNA DIXON JR ? Acc #: ?[id number] ? Pt. ? Col Date: ?? 12/31/2011 ? /Sex: ?1975,(36 years),Male ? Rec Date: ?? 12/31/2011 ? LOC: ?[facility] ? MORPHOLOGIC HEMATOLOGY: SMEAR REVIEW ? ---Clinical Information--- ? EXTERNAL SR-FUO ? ---Results--- ? MICROSCOPIC DESCRIPTION: ? The WBC is 20.86 thousand with the following differential: ? Segs 70%, Bands 11% Lymphs 13%, Monos 3%, Basos 2%, IG 0.4%. ? Mild toxic granulations are seen in neutrophils. ? The erythroid series is normocytic normochromic. A mild normocytic anemia ? is seen (Hb 13.0g/dl; MCV 89.3fL). ? Platelets are normal in numbers and morphology. (236K) ? ---Interpretation--- ? 1. Leukocytosis with absolute neutrophilia and mild left shift, suspicious ? for acute infection-see comment. ? 2. Mild anemia ? 01/01/12 ? SS ? 01/01/12 Verified by: ? Song Rangel MD ? Hematopathologist ? (Electronic Signature) ? The attending pathologist whose signature appears on this report has ? reviewed all diagnostic slides and has edited the gross and/or ? microscopic portion of the report in rendering the final pathologic ? diagnosis. ? ---Comment--- ? Neutrophilia may arise secondary to infection, inflammation, medication, ? stress, smoking, and malignancy. Clnical correlation is indicated. ? Dictated by: ??Katrin Chakraborty MD ? Hematopathology Fellow ? As the attending physician, I attest that I examined the histologic slides, ? and confirm Dr. Katrin Chakraborty's diagnosis. ARIAN CAENNIUM 12/31/2011 10:3 9 AM EST Andi Rene MD HEMATOLOGY ORDERABLE S [facility] CAENNIUM * (ABNORMAL) DIFFERENTIAL, MANUAL (12/31/2011 9:44 AM EST) Neutrophil % Manual 70 34 - 71 % [facility] MILLENNIUM Band % 11 0 - 12 % [facility] MILLENNIUM Lymphocyte Manual 13(L) 19 - 53 % [facility] MILLENNIUM Monocyte Manual 3(L) 4 - 13 % [facility]ERN ER MILLENNIUM Basophil Manual 2 0 - 2 % [facility]ERN ER MILLENNIUM Myelocyte Manual 1(H) 0 - 0 % [facility]ER MILLENNIUM Neutrophil Absolute (ANC) - Manual 14.6(H) 1.5 - 6.3 x10(3)/mcL [facility] MILLENNIUM Band Abs 2.3(H) 0.2 - 0.6 x10(3)/mcL [facility] MILLENNIUM Neutrophil Absolute (ANC) - Automated 16.90(H) 1.50 - 6.30 x10(3)/mcL [facility] MILLENNIUM Lymph Absolute Manual 2.7 1.0 - 3.6 x10(3)/mcL [facility] MILLENNIUM Monocyte Absolute Manual 0.6 0.2 - 1.0 x10(3)/mcL [facility] MILLENNIUM Baso Absolute Manual 0.4(H) 0.0 - 0.2 x10(3)/mcL [facility] MILLENNIUM Myelo Absolute Manual 0.2(H) 0.0 - 0.0 x10(3)/mcL [facility]ER MILLENNIUM Total Cells Ct 100 CERNE R MILLENNIUM Plat estimate Normal [facility]ERNER MILLENNIUM RBC Morphology Normal [facility]ERNE R MILLENNIUM Blood specimen (specimen) 12/31/2011 9:44 AM EST 12/31/2011 10:12 AM EST Narrative Resulting Agency Comment Spec In Lab Andi S Anju DE HEMATOLOGY ORDERABLE S [facility] * (ABNORMAL) DIFFERENTIAL, AUTOMATED (12/31/2011 9:44 AM EST) Neutrophil % 82.3(H) 34.0 - 71.0 % [facility]ER MILLENNIUM Neutrophil Absolute 17.18(H) 1.50 - 6.30 x10(3)/mc L [facility] MILLENNIUM Lymph % 11.2(L) 19.0 - 53.0 % [facility] MILLENNIUM Lymphocytes Abs 2.3 1.0 - 3.6 x10(3)/mc L [facility] MILLENNIUM Monocyte % 5.6 4.0 - 13.0 % [facility] MILLENNIUM Monocyte Abs 1.2(H) 0.2 - 1.0 x10(3)/mc L [facility]ER MILLENNIUM Eos % 0.3 0.0 - 7.0 % [facility]ER MILLENNIUM Eosinophils Abs 0.1 0.0 - 0.5 x10(3)/mc L [facility]ER MILLENNIUM Basophil % 0.2 0.0 - 2.0 % [facility]ERNER MILLENNIUM Baso Absolute 0.0 0.0 - 0.2 x10(3)/mc L [facility] MILLENNIUM Immature Gran % 0.40 0.00 - 0.66 % [facility] MILLENNIUM Comment: Immature granulocytes(IG's)percentage and absolute count will include metamyelocytes, myelocytes, and promyelocytes. Blood smears from CBCs yielding IG's will be scanned manually for concordance. If this scan disagrees with the automated IG or if promyelocytes are noted, a manual differential will be performed. Immature Gran Absolute 0.08(H) 0.00 - 0.05 x10(3)/mc L [facility] MILLENNIUM Blood specimen (specimen) 12/31/2011 9:44 AM EST 12/31/2011 10:12 AM EST Andi Ruiz Rene MD HEMATOLOGY ORDERABLE S [facility] * (ABNORMAL) CBC (WITH DIFF) (12/31/2011 9:44 AM EST) White Blood Cell 20.9(H) 4.0 - 10.0 x10(3)/mc L [facility] MILLENNIUM Red Blood Cell 4.30(L) 4.63 - 6.08 x10(6)/mc L [facility] MILLENNIUM Hemoglobin 13.0(L) 13.7 - 17.5 gm/dL [facility] MILLENNIUM Hematocrit 38.4(L) 40.0 - 51.0 % [facility] MILLENNIUM Mean Cell Volume 89.3 79.0 - 92.0 fL [facility] MILLENNIUM Mean Cell Hemoglobin 30.2 25.6 - 32.2 pg CERNER MILLENNIUM Mean Cell Hemoglobin Concentration 33.9 32.0 - 36.5 gm/dL CERNER MILLENNIUM Platelet 236 145 - 370 x10(3)/mc L CERNER MILLENNIUM RDW Standard Deviation 42.7 35.0 - 46.0 fL [facility] MILLENNIUM RDW coefficient of variation 13.1 10.9 - 14.4 % [facility]ERNER MILLENNIUM Mean Platelet Volume 10.4 9.0 - 12.0 fL [facility] Blood specimen (specimen) 12/31/2011 9:44 AM EST 12/31/2011 10:12 AM EST Narrative Resulting Agency Comment Spec In Lab Andi Rene MD HEMATOLOGY ORDERABLE S Performing Organization Address [facility] de Phone Number [facility] * Lactate Dehydrogenase (12/31/2011 9:44 AM EST) Lactate Dehydrogenase 123 110 - 220 unit/L [facility] Blood specimen (specimen) 12/31/2011 9:44 AM EST 12/31/2011 10:12 AM EST Narrative Resulting Agency Comment Spec In Lab Andi Rene MD CHEMISTRY ORDERABLES Performing Organization Address [facility] Phone Number [facility] * Peripheral Smear Review (12/31/2011 9:44 AM EST) Peripheral Smear Review See Comment [facility] Comment: When completed by the Pathologist, report [id number] will display under Hematology Reports. Blood specimen (specimen) 12/31/2011 9:44 AM EST 12/31/2011 10:12 AM EST Narrative Resulting Agency Comment Spec In Lab Andi Rene MD HEMATOLOGY ORDERABLE S Performing Organization Address [facility] Phone Number [facility] * (ABNORMAL) APTT (12/31/2011 9:44 AM EST) Partial Thromboplastin Time 50(H) 25 - 35 sec [facility] Comment: Recommended therapeutic PTT range for full dose unfractionated heparin is 80-114 seconds. Blood specimen (specimen) 12/31/2011 9:44 AM EST 12/31/2011 10:12 AM EST Narrative Resulting Agency Comment Spec In Lab Andi Rene MD HEMATOLOGY ORDERABLE S Performing Organization Address [facility]/State/ZIP Co de Phone Number [facility] * (ABNORMAL) DIFFERENTIAL, AUTOMATED (12/31/2011 3:38 AM EST) Neutrophil % 76.0(H) 34.0 - 71.0 % [facility] MILLENNIUM Neutrophil Absolute 14.68(H) 1.50 - 6.30 x10(3)/mc L [facility] MILLENNIUM Lymph % 14.5(L) 19.0 - 53.0 % [facility] MILLENNIUM Lymphocytes Abs 2.8 1.0 - 3.6 x10(3)/mc L [facility] MILLENNIUM Monocyte % 8.5 4.0 - 13.0 % [facility] MILLENNIUM Monocyte Abs 1.6(H) 0.2 - 1.0 x10(3)/mc L [facility]ILLENNI[facility] Eos % 0.4 0.0 - 7.0 % [facility] MILLENNIUM Eosinophils Abs 0.1 0.0 - 0.5 x10(3)/mc L [facility] MILLENNIUM Basophil % 0.2 0.0 - 2.0 % [facility] MILLENNIUM Baso Absolute 0.0 0.0 - 0.2 x10(3)/mc L [facility]ILLENNI[facility] Immature Gran % 0.40 0.00 - 0.66 % [facility]ILL[facility] Comment: Immature granulocytes(IG's)percentage and absolute count will include metamyelocytes, myelocytes, and promyelocytes. Blood smears from CBCs yielding IG's will be scanned manually for concordance. If this scan disagrees with the automated IG or if promyelocytes are noted, a manual differential will be performed. Immature Gran Absolute 0.08(H) 0.00 - 0.05 x10(3)/mc L [facility] Blood specimen (specimen) 12/31/2011 3:38 AM EST 12/31/2011 3:50 AM EST Remigio Ceron MD HEMATOLOGY ORDERABLE S [facility] * (ABNORMAL) APTT (12/31/2011 3:38 AM EST) Partial Thromboplastin Time 47(H) 25 - 35 sec [facility]ILL[facility] Comment: Recommended therapeutic PTT range for full dose unfractionated heparin is 80-114 seconds. Blood specimen (specimen) 12/31/2011 3:38 AM EST 12/31/2011 3:50 AM EST Narrative Resulting Agency Comment Spec In Lab Andi Ruiz Rene MD HEMATOLOGY ORDERABLE S [facility] CAENNIUM * (ABNORMAL) BMP w/fasting Glucose (12/31/2011 3:38 AM EST) Glucose Fasting 114(H) 65 - 99 mg/dL [facility]ILLENNI[facility] Comment: [...] of Diabetes Mellitus, Position Statement from the [place] [employer]. ??Diabetes Care, Volume 33, Supplement 1, Nov 2009 Blood Urea Nitrogen 10 10 - 20 mg/dL [facility] MILLENNIUM Creatinine 0.76(L) 0.80 - 1.50 mg/dL [facility] MILLENNIUM Sodium 133(L) 135 - 145 mmol/L [facility] MILLENNIUM Potassium 3.4(L) 3.5 - 5.0 mmol/L [facility] MILLENNIUM Comment: Please note: ??Patients with WBC >100,000 may have falsely elevated Potassium levels. ??For accurate Potassium quantification in these patients send serum separator tube (gold top) for subsequent determinations. ??Contact the Clinical Chemistry Laboratory if there are any questions. Chloride 98 98 - 107 mmol/L [facility] MILLENNIUM Carbon Dioxide 24 22 - 31 mmol/L [facility] MILLENNIUM Anion Gap 11 5 - 15 mmol/L [facility] MILLENNIUM Calcium 9.1 8.5 - 10.5 mg/dL [facility] MILLENNIUM Est Glomerular Filtration Rate >60 >=60 [facility] MILLENNIUM Comment: The National Kidney Disease Education Program (NKDEP) has recommended all laboratories report estimated GFR (eGFR) along with plasma creatinine measurements to assist you with recognition of early kidney disease. Caveats: ??Plasma creatinine should be at steady-state (unchanged within the past week). For patients multiply eGFR by 1.2. The MDRD equation has not been validated for pediatric patients and is only valid for patients with age >= 18 years. At present, NKDEP does NOT recommend using the MDRD equation for drug dosing purposes and pharmacists should continue to use their current dosing methods. In addition, numerical eGFR values greater than 60 ml/min/1.73 square meters should be treated as > 60, and not an exact number due to greater inaccuracies at these higher values. Per NKDEP, they classify normal renal function as any GFR >60ml/min/1.73 square meters; chronic kidney disease when GFR <60, and renal failure when GFR <15. ??This calculation may not be valid for patients with atypical muscle mass (very lean or obese), acute renal failure, and in patients with diabetic kidney disease. References: http://nkdep.nih.gov/resources/NKDEP_Suggestn4Labs_0606_508.pdf http://www.kidney.org/professionals/kls/pdf/faq_gfr.pdf Blood specimen (specimen) 12/31/2011 3:38 AM EST 12/31/2011 3:50 AM EST Narrative Resulting Agency Comment Spec In Lab Andi Rene MD CHEMISTRY ORDERABLES ARIAN CERDAIUM * (ABNORMAL) CBC (with Diff) (12/31/2011 3:38 AM EST) White Blood Cell 19.3(H) 4.0 - 10.0 x10(3)/mc L CERNER MILLENNIUM Red Blood Cell 4.40(L) 4.63 - 6.08 x10(6)/mc L CERNER MILLENNIUM Hemoglobin 13.4(L) 13.7 - 17.5 gm/dL CERNER MILLENNIUM Hematocrit 39.0(L) 40.0 - 51.0 % CERNER MILLENNIUM Mean Cell Volume 88.6 79.0 - 92.0 fL CERNER MILLENNIUM Mean Cell Hemoglobin 30.5 25.6 - 32.2 pg CERNER MILLENNIUM Mean Cell Hemoglobin Concentration 34.4 32.0 - 36.5 gm/dL CERNER MILLENNIUM Platelet 223 145 - 370 x10(3)/mc L CERNER MILLENNIUM RDW Standard Deviation 42.0 35.0 - 46.0 fL CERNER MILLENNIUM RDW coefficient of variation 13.1 10.9 - 14.4 % CERNER MILLENNIUM Mean Platelet Volume 10.3 9.0 - 12.0 fL CERNER MILLENNIUM Blood specimen (specimen) 12/31/2011 3:38 AM EST 12/31/2011 3:50 AM EST Narrative Resulting Agency Comment Spec In Lab Remigio Ceron MD HEMATOLOGY ORDERABLE S Performing Organization Address [facility] Co de Phone Number ARIAN CERDAIUM * (ABNORMAL) APTT (12/30/2011 9:02 PM EST) Partial Thromboplastin Time 37(H) 25 - 35 sec CERBRIAN MILLENNIUM Comment: Recommended therapeutic PTT range for full dose unfractionated heparin is 80-114 seconds. Blood specimen (specimen) 12/30/2011 9:02 PM EST 12/30/2011 9:10 PM EST Narrative Resulting Agency Comment Spec In Lab Andi Rene MD HEMATOLOGY ORDERABLE S Performing Organization Address [facility] Co de Phone Number ARIAN NELSON * EKG 12 Lead (12/30/2011 5:24 PM EST) Ventricular rate 107 BPM MUSE SYSTEM Atrial Rate 107 BPM MUSE SYSTEM P-R Interval 160 ms MUSE SYSTEM QRS Duration 104 ms MUSE SYSTEM Q-T Interval 310 ms MUSE SYSTEM QTC Calculated (Bezet) 413 ms MUSE SYSTEM Calculated P Stafford 24 degrees MUSE SYSTEM Calculated R Stafford 25 degrees MUSE SYSTEM Calculated T Stafford 54 degrees MUSE SYSTEM INTERPRETATION Sinus tachycardia Cannot rule out Inferior infarct , age undetermined Nonspecific T wave abnormality Abnormal ECG When compared with ECG of 29-DEC-2011 23:13, No significant change was found Confirmed by MD VAIBHAV, SARTHAK ([id number]) on 12/31/2011 10:51:02 AM MUSE SYSTEM 12/30/2011 5:24 PM EST 12/31/2011 10:51 AM EST Andi Rene MD ECG ORDERABLES MUSE SYSTEM * Blood culture (12/30/2011 5:04 PM EST) Blood Culture ? Patient Name: ZACK , GEOVANNA Llanos ?Ordered By: ANDI RENE ? MR#: [id number] ?LOC: ??ICCU ? /Sex: ??1975 (36 years), ? Male ? PROCEDURE: Blood Culture ?SOURCE: Blood ? COLLECTED: 12/30/2011 17:04 ?FREE TEXT SOURCE: LAC ? STARTED: 12/30/2011 17:31 ? FINAL REPORT ? Final Report ? Verified:2011 15:07 ? No growth at 5 days. ? PRELIMINARY REPORT ? Preliminary Report ? Verified:2011 23:07 ? No growth at 4 days. ? ARIAN NELSON Blood specimen (specimen) 12/30/2011 5:04 PM EST 12/30/2011 5:31 PM EST Narrative Resulting Agency Comment Spec In Lab Andi Rene MD MICROBIOLOGY - BLOOD ORDERABLES ARIAN NELSON * Blood culture (12/30/2011 4:51 PM EST) Blood Culture ? Patient Name: ZACK REYNA, GEOVANNA Llanos ?Ordered By: ANDI RENE ? MR#: [id number] ?LOC: ??[facility] ? /Sex: ??1975 (36 years), ? Male ? PROCEDURE: Blood Culture ?SOURCE: Blood ? COLLECTED: 12/30/2011 16:51 ?FREE TEXT SOURCE: LAC ? STARTED: 12/30/2011 17:33 ? FINAL REPORT ? Final Report ? Verified:2011 15:07 ? No growth at 5 days. ? PRELIMINARY REPORT ? Preliminary Report ? Verified:2011 23:07 ? No growth at 4 days. ? ARIAN NELSON Blood specimen (specimen) 12/30/2011 4:51 PM EST 12/30/2011 5:33 PM EST Narrative Resulting Agency Comment Spec In Lab Andi Rene MD MICROBIOLOGY - BLOOD ORDERABLES CERNER MILLENNIUM * (ABNORMAL) DIFFERENTIAL, AUTOMATED (12/30/2011 4:25 PM EST) Neutrophil % 83.4(H) 34.0 - 71.0 % CERNER MILLENNIUM Neutrophil Absolute 15.69(H) 1.50 - 6.30 x10(3)/mc L CERNER MILLENNIUM Lymph % 9.6(L) 19.0 - 53.0 % CERNER MILLENNIUM Lymphocytes Abs 1.8 1.0 - 3.6 x10(3)/mc L CERNER MILLENNIUM Monocyte % 6.4 4.0 - 13.0 % CERNER MILLENNIUM Monocyte Abs 1.2(H) 0.2 - 1.0 x10(3)/mc L CERNER MILLENNIUM Eos % 0.2 0.0 - 7.0 % CERNER MILLENNIUM Eosinophils Abs 0.0 0.0 - 0.5 x10(3)/mc L CERNER MILLENNIUM Basophil % 0.2 0.0 - 2.0 % CERNER MILLENNIUM Baso Absolute 0.0 0.0 - 0.2 x10(3)/mc L CERNER MILLENNIUM Immature Gran % 0.20 0.00 - 0.66 % CERNER MILLENNIUM Comment: Immature granulocytes(IG's)percentage and absolute count will include metamyelocytes, myelocytes, and promyelocytes. Blood smears from CBCs yielding IG's will be scanned manually for concordance. If this scan disagrees with the automated IG or if promyelocytes are noted, a manual differential will be performed. Immature Gran Absolute 0.04 0.00 - 0.05 x10(3)/mc L CERNER MILLENNIUM Blood specimen (specimen) 12/30/2011 4:25 PM EST 12/30/2011 4:43 PM EST Andi Rene MD HEMATOLOGY ORDERABLE S Performing Organization Address City/[facility]/ZIP Co de Phone Number [facility] * ANTIBODY SCREEN (12/30/2011 4:25 PM EST) Ab Screen Interp Negative [facility] Expires at [id number] on: [id number] [facility] Blood specimen (specimen) 12/30/2011 4:25 PM EST 12/30/2011 4:36 PM EST Narrative Resulting Agency Comment Spec In Lab Andi Rene MD BLOOD BANK LAB ORDER RANDELL Performing Organization Address [facility] Co de Phone Number [facility] * ABO/RH TYPING (12/30/2011 4:25 PM EST) Pathologist [facility] ABORH Type A Pos [facility] Blood specimen (specimen) 12/30/2011 4:25 PM EST 12/30/2011 4:36 PM EST Narrative Resulting Agency Comment Spec In Lab Andi Rene MD BLOOD BANK LAB ORDER RANDELL Performing Organization Address [facility] Co de Phone Number [facility] * Glucose, random (12/30/2011 4:25 PM EST) Pathologist [facility] Glucose 126 60 - 199 mg/dL [facility] Comment:Diabetes: >=200 mg/d L plus symptoms Blood specimen (specimen) 12/30/2011 4:25 PM EST 12/30/2011 4:43 PM EST Narrative Resulting Agency Comment Spec In Lab Andi Rene MD CHEMISTRY ORDERABLES Performing Organization Address [facility] Co de Phone Number [facility] * (ABNORMAL) CBC (with Diff) (12/30/2011 4:25 PM EST) White Blood Cell 18.8(H) 4.0 - 10.0 x10(3)/mc L [facility] Red Blood Cell 4.47(L) 4.63 - 6.08 x10(6)/mc L CERNER MILLENNIUM Hemoglobin 13.7 13.7 - 17.5 gm/dL [facility] M[facility] Hematocrit 39.7(L) 40.0 - 51.0 % CERNER MILLENNIUM Mean Cell Volume 88.8 79.0 - 92.0 fL CERNER MILLENNIUM Mean Cell Hemoglobin 30.6 25.6 - 32.2 pg [facility] MILL[facility]UM Mean Cell Hemoglobin Concentration 34.5 32.0 - 36.5 gm/dL [facility] MILLENNIUM Platelet 223 145 - 370 x10(3)/mc L [facility] MILLENNIUM RDW Standard Deviation 42.6 35.0 - 46.0 fL CERNER MILLENNIUM RDW coefficient of variation 13.2 10.9 - 14.4 % [facility] MILLENNIUM Mean Platelet Volume 10.5 9.0 - 12.0 fL [facility] Blood specimen (specimen) 12/30/2011 4:25 PM EST 12/30/2011 4:43 PM EST Narrative Resulting Agency Comment Spec In Lab Andi Rene MD HEMATOLOGY ORDERABLE S Performing Organization Address [facility] de Phone Number [facility] * APTT (12/30/2011 2:08 PM EST) Partial Thromboplastin Time 31 25 - 35 sec [facility] Comment: Recommended therapeutic PTT range for full dose unfractionated heparin is 80-114 seconds. Blood specimen (specimen) 12/30/2011 2:08 PM EST 12/30/2011 2:27 PM EST Narrative Resulting Agency Comment Spec In Lab Andi Rene MD HEMATOLOGY ORDERABLE S Performing Organization Address [facility] Co de Phone Number [facility] * Cardiac Enzymes (12/30/2011 2:08 PM EST) Troponin-T 0.03 <=0.03 ng/mL [facility] Comment: 0.03 ng/mL: Represents the 99th percentile upper reference limit for normals. >0.03 ng/mL: Elevated cardiac troponin T level indicative of myocardial damage. Diagnosis of acute, evolving or recent DC requires a typical rise and gradual fall [...] consensus document of the Joint Society of Cardiology/[place] College [employer] Committee for the redefinition of myocardial infarction. Journal of the [place] College [employer] 2000; 36: 959-969] Creatine Kinase 72 0 - 200 unit/L ARIAN CAENNIUM Blood specimen (specimen) 12/30/2011 2:08 PM EST 12/30/2011 2:27 PM EST Narrative Resulting Agency Comment Spec In Lab Remigio Ceron MD CHEMISTRY ORDERABLES Performing Organization Address [facility] Co de Phone Number ARIAN [facility] * HIV (12/30/2011 10:18 AM EST) HIV 1/2 Ab Negative [facility] Blood specimen (specimen) 12/30/2011 10:18 AM EST 12/30/2011 10:28 AM EST Narrative Resulting Agency Comment Spec In Lab Andi Rene MD CHEMISTRY ORDERABLES Performing Organization Address [facility] Co de Phone Number [facility] * Echo Transthoracic (Complete) (12/30/2011 9:47 AM EST) EF 55 [facility]ART[facility] SYSTEM Anatomical Region Laterality Modality Other 12/30/2011 Narrative 12/30/2011 10:02 AM EST Procedure: ? Transthoracic Echocardiogram Patient: ? ZACK AUSTIN P ?(Age): 1975(36) Med Rec#: ?[id number] ? Sex: ?M ? [place] Loc: [place] ? Ht / Wt: ??180(cm)/124(kg) Pt. Loc: ? Adult Floor ?BSA: ?2.41 Study Date: ?12/30/2011 ? Pt. Type: Inpatient Tape: ? Referring: Remigio Ceron Stock Mover: Benjamin Lundberg Diagnosis: ??Chest pain (786.50) CPT Code(s): ??Spectral Doppler (61008), ??Color Doppler (12873), ??Echo Full (43682), Indication(s): ??Chest Pain Rhythm: HR ?BP ?106/60 ?? SUMMARY: 1. The left ventricular chamber size is normal.Left ventricular wall thickness is normal.There are no left ventricular segmental wall motion abnormalities.There is normal global left ventricular systolic function. Ejection fraction is estimated to be 55%.Doppler assessment is consistent with normal left sided filling pressure. 2. Right ventricular chamber size, wall thickness, and systolic function are within normal limits.Pulmonary artery hypertension could not be assessed due to inadequate tricuspid regurgitation jet. 3. There is no hemodynamically significant valve disease. 4. See remainder of report for additional findings. FINDINGS: Study Quality ?Adequate Left Ventricle ?The left ventricular chamber size is normal. ?Left ventricular wall thickness is normal. ?There is normal global left ventricular systolic function. ??Ejection fraction is estimated to be 55%. ?There are no left ventricular segmental wall motion abnormalities. ?Doppler assessment is consistent with normal left sided filling pressure. Left Atrium ?The left atrium is normal in size. Right Ventricle ?Right ventricular chamber size, wall thickness, and systolic function are within normal limits. ?Pulmonary artery hypertension could not be assessed due to inadequate tricuspid regurgitation jet. Right Atrium ?The right atrium is normal in size. Aortic Valve ?The aortic valve is tricuspid. ?The aortic valve leaflets are mildly thickened. ?There is no evidence of aortic valve stenosis. ?There is no evidence of aortic regurgitation. Mitral Valve ?The mitral valve appears normal in structure and function. ?There is trace mitral regurgitation present. Tricuspid Valve ?The tricuspid valve appears normal in structure and function. ?There is trace tricuspid regurgitation present. Pulmonic Valve ?The pulmonic valve appears normal in structure and function. ?There is trace pulmonic regurgitation present. Aorta ?The aortic root is normal in size. ?The ascending aorta is normal in size. Pulmonary Artery ?The main pulmonary artery appears normal. Venous ?The venous system is not well visualized. ?The inferior vena cava is poorly visualized. Misc ?There is no hemodynamically significant valve disease. ?See remainder of report for additional findings. ?Two-dimensional echo, spectral Doppler and color Doppler performed. Chambers ?Value ?Units (Range) ? LV EF Est ? 55 ? % (55 to 80) ? IVSd 2D ? 1 ?cm ? LVIDd 2D ?5.2 ?cm ? PWd 2D ?0.7 ?cm ? LVIDs 2D ?3.8 ?cm ? LVFS 2D ? 27 ? % ? LA area ? 14 ? cm2 (<21) ? RA area ? 8 ?cm2 (<18) ? Ao root ? 3.2 ?cm (2.1 to 3.6) ? Asc Ao ?3.2 ?cm (2 to 3.5) ? Mitral Valve ?Value ?Units (Range) ? E peak ?0.87 ? m/sec ? E/A ratio ? 1 ?ratio ? MVDT ?67 ? msec ? E1 ?0.1 ?m/sec ? E/E1 ?8.7 ?ratio ? This report has been electronically signed by: aZk Coley MD ? 12/30/2011 10:01:28 Images reviewed and interpretation verified [facility] Cardiac Ultrasound Laboratory Procedure Note Zak Coley MD - 12/30/2011 Procedure: Transthoracic Echocardiogram Patient: ZACK Llanos DOB(Age): 1975(36) Med Rec#: [id number] Sex: M [place] Loc: [facility] Ht / Wt: 180(cm)/124(kg) Pt. Loc: Adult Floor BSA: 2.41 Study Date: 12/30/2011 Pt. Type: Inpatient Tape: Referring: Remigio Ceron Stock Mover: Benjamin Lundberg Diagnosis: Chest pain (786.50) CPT Code(s): Spectral Doppler (09393), Color Doppler (91337), Echo Full (00412), Indication(s): Chest Pain Rhythm: HR BP 106/60 SUMMARY: 1. The left ventricular chamber size is normal.Left ventricular wall thickness is normal.There are no left ventricular segmental wall motion abnormalities.There is normal global left ventricular systolic function. Ejection fraction is estimated to be 55%.Doppler assessment is consistent with normal left sided filling pressure. 2. Right ventricular chamber size, wall thickness, and systolic function are within normal limits.Pulmonary artery hypertension could not be assessed due to inadequate tricuspid regurgitation jet. 3. There is no hemodynamically significant valve disease. 4. See remainder of report for additional findings. FINDINGS: Study Quality Adequate Left Ventricle The left ventricular chamber size is normal. Left ventricular wall thickness is normal. There is normal global left ventricular systolic function. Ejection fraction is estimated to be 55%. There are no left ventricular segmental wall motion abnormalities. Doppler assessment is consistent with normal left sided filling pressure. Left Atrium The left atrium is normal in size. Right Ventricle Right ventricular chamber size, wall thickness, and systolic function are within normal limits. Pulmonary artery hypertension could not be assessed due to inadequate tricuspid regurgitation jet. Right Atrium The right atrium is normal in size. Aortic Valve The aortic valve is tricuspid. The aortic valve leaflets are mildly thickened. There is no evidence of aortic valve stenosis. There is no evidence of aortic regurgitation. Mitral Valve The mitral valve appears normal in structure and function. There is trace mitral regurgitation present. Tricuspid Valve The tricuspid valve appears normal in structure and function. There is trace tricuspid regurgitation present. Pulmonic Valve The pulmonic valve appears normal in structure and function. There is trace pulmonic regurgitation present. Aorta The aortic root is normal in size. The ascending aorta is normal in size. Pulmonary Artery The main pulmonary artery appears normal. Venous The venous system is not well visualized. The inferior vena cava is poorly visualized. Misc There is no hemodynamically significant valve disease. See remainder of report for additional findings. Two-dimensional echo, spectral Doppler and color Doppler performed. Chambers Value Units (Range) LV EF Est 55 % (55 to 80) IVSd 2D 1 cm LVIDd 2D 5.2 cm PWd 2D 0.7 cm LVIDs 2D 3.8 cm LVFS 2D 27 % LA area 14 cm2 (<21) RA area 8 cm2 (<18) Ao root 3.2 cm (2.1 to 3.6) Asc Ao 3.2 cm (2 to 3.5) Mitral Valve Value Units (Range) E peak 0.87 m/sec E/A ratio 1 ratio MVDT 67 msec E1 0.1 m/sec E/E1 8.7 ratio This report has been electronically signed by: Zak Coely MD 12/30/2011 10:01:28 Images reviewed and interpretation verified [facility] Cardiac Ultrasound Laboratory Remigio Ceron MD ECHO ORDERABLES * (ABNORMAL) Urinalysis with microscopic (12/30/2011 9:32 AM EST) Pathologist [facility] Glucose, Urine Dipstick Negative Negative mg/dL CERNER MILLENNIUM Protein, Urine Dipstick Trace(A) Neg mg/dL CERNER MILLENNIUM Bilirubin, Urine Dipstick Negative Negative mg/dL CERNER MILLENNIUM Urobilinogen, Urine Dipstick Normal mg/dL CERNER MILLENNIUM pH, Urn (dipstick) 6.0 5.0 - 8.0 CERNER MILLENNIUM Blood, Urine Dipstick Negative mg/dL CERNER MILLENNIUM Ketone, Urine Dipstick Negative mg/dL CERNER MILLENNIUM Nitrite, Urine Dipstick Negative CERNER MILLENNIUM Leukocytes, Urine Dipstick Negative mcL CERNER MILLENNIUM Appearance, Urine Dipstick Clear Clear CERNER MILLENNIUM Specific Browning Urine Automated 1.019 1.002 - 1.030 CERNER MILLENNIUM Color, Urine Dipstick Yellow Yellow CERNER MILLENNIUM RBC, Urine Not Present 0 - 3 CERNER MILLENNIUM WBC, Urine 1 0 - 3 /HPF CERNER MILLENNIUM Transitional Epithelial Cells, Urine <1 <=1 /HPF CERNER MILLENNIUM Urine specimen (specimen) 12/30/2011 9:32 AM EST 12/30/2011 9:45 AM EST Narrative Resulting Agency Comment Spec In Lab Andi Rene MD URINE ORDERABLES CERNER MILLENNIUM * Rapid Qual Drug Screen, Urine ([facility]) (12/30/2011 9:32 AM EST) Pathologist [facility] U IVAN Screen See Note CERNER MILLENNIUM Comment: Urine drug of abuse results: ?Amphetamines Negative ?Methamphetamines Negative ?Barbiturates Negative ? Benzodiazepines Negative ? Cocaine metabolites Negative ? Methadone Negative ? Opiates Negative ?? Marijuana metabolites Negative ?Tricyclics Presumptive Positive This urine drug testing device screens for: Amphetamines (AMP), Methamphetamines (mAMP), Opiates (OPI), Cocaine metabolites(ADRI), Marijuana metabolites (THC), Benzodiazepines (BZO), Barbiturates (BAR), Methadone (MTD)and Tricyclic antidepressants (TCA). The amphetamine screen detects d-amphetamine use, and a separate methamphetamine screen detects d-methamphetamine use. This device does not detect oxycodone use. Be aware that this is only a QUALITATIVE SCREEN and must be used in conjunction with your clinical assessment of the patient. ??Results are NOT routinely confirmed by highly-defined methods, and are therefore reported as presumptive positive screens as such qualitative SCREEN RESULTS CANNOT BE USED FOR MEDICO-LEGAL purposes. ??As with any qualitative drug screening device, there can be occasional false positive readings from similar or dissimilar cross-reacting drugs. Please note: As of 12/10/2011 a new Drug of Abuse Urine testing device is being used in the [facility] Chemistry Laboratory. Please contact the chemistry laboratory at [phone] with questions. Urine specimen (specimen) 12/30/2011 9:32 AM EST 12/30/2011 9:45 AM EST Narrative Resulting Agency Comment Spec In Lab Andi Rene MD URINE ORDERABLES Performing Organization Address City/State/[facility] Phone Number [facility] * Urine culture Clean Catch Urine (12/30/2011 9:31 AM EST) Urine Culture ? Patient Name: GEOVANNA DIXON JR ?Ordered By: ANDI RENE ? MR#: [id number] ?LOC: ??[facility]CU ? /Sex: ?? 4 (36 years), ? Male ? PROCEDURE: Urine Culture ?SOURCE: U CC ? COLLECTED: 12/30/2011 09:31 ? STARTED: 12/30/2011 10:38 ? FINAL REPORT ? Final Report ? Verified: 08:00 ? No growth (Less than 1,000 cfu/ml). ? ____ CERNER MILLENNIUM Urine specimen obtained by clean catch procedure (specimen) 12/30/2011 9:31 AM EST 12/30/2011 10:38 AM EST Narrative Resulting Agency Comment Spec In Lab Andi Rene MD MICROBIOLOGY - GENER AL ORDERABLES CERNER MILLENNIUM * (ABNORMAL) DIFFERENTIAL, AUTOMATED (12/30/2011 7:07 AM EST) Neutrophil % 84.9(H) 34.0 - 71.0 % CERNER MILLENNIUM Neutrophil Absolute 18.75(H) 1.50 - 6.30 x10(3)/mc L CERNER MILLENNIUM Lymph % 8.1(L) 19.0 - 53.0 % CERNER MILLENNIUM Lymphocytes Abs 1.8 1.0 - 3.6 x10(3)/mc L CERNER MILLENNIUM Monocyte % 6.5 4.0 - 13.0 % CERNER MILLENNIUM Monocyte Abs 1.4(H) 0.2 - 1.0 x10(3)/mc L CERNER MILLENNIUM Eos % 0.1 0.0 - 7.0 % CERNER MILLENNIUM Eosinophils Abs 0.0 0.0 - 0.5 x10(3)/mc L CERNER MILLENNIUM Basophil % 0.1 0.0 - 2.0 % CERNER MILLENNIUM Baso [...] x10(3)/mc L CERNER MILLENNIUM Blood specimen (specimen) 12/30/2011 7:07 AM EST 12/30/2011 7:18 AM EST Remigio Ceron MD HEMATOLOGY ORDERABLE S CERNER MILLENNIUM * (ABNORMAL) CBC (with Diff) (12/30/2011 7:07 AM EST) White Blood Cell 22.1(H) 4.0 - 10.0 x10(3)/mc L CERNER MILLENNIUM Red Blood Cell 4.54(L) 4.63 - 6.08 x10(6)/mc L CERNER MILLENNIUM Hemoglobin 13.6(L) 13.7 - 17.5 gm/dL CERNER MILLENNIUM Hematocrit 40.3 40.0 - 51.0 % CERNER MILLENNIUM Mean Cell Volume 88.8 79.0 - 92.0 fL CERNER MILLENNIUM Mean Cell Hemoglobin 30.0 25.6 - 32.2 pg CERNER MILLENNIUM Mean Cell Hemoglobin Concentration 33.7 32.0 - 36.5 gm/dL CERNER MILLENNIUM Platelet 230 145 - 370 x10(3)/mc L CERNER MILLENNIUM RDW Standard Deviation 42.2 35.0 - 46.0 fL CERNER MILLENNIUM RDW coefficient of variation 13.0 10.9 - 14.4 % CERNER MILLENNIUM Mean Platelet Volume 10.6 9.0 - 12.0 fL [facility] Blood specimen (specimen) 12/30/2011 7:07 AM EST 12/30/2011 7:18 AM EST Narrative Resulting Agency Comment Spec In Lab Remigio Ceron MD HEMATOLOGY ORDERABLE S [facility] * Hemoglobin A1c (12/30/2011 7:07 AM EST) Hemoglobin A1c 6.1 4.3 - 6.1 % [facility] Estimated Average Glucose 128 mg/dL [facility] Comment: eAG equivalents for HbA1c percentages: HbA1c(%) ?eAG(mg/dL) 6.0 ?126 6.5 ?140 7.0 ?154 7.5 ?169 8.0 ?183 8.5 ?197 9.0 ?212 9.5 ?226 10.0 ? 240 Limitations: The eAG calculation has not been validated on women, individuals below 18 years old and above 70 years old, and individuals with hemoglobinopathies. Additional resources are available on the ADA website: ??http://professional.diabetes.org/glucosecalculator.aspx Reference: James MCMAHON, Kayli J, Doretha R, et al. ??Translating the A1C assay into estimated average glucose values. ??Diabetes Care 2008:31(8):3283-4863. Blood specimen (specimen) 12/30/2011 7:07 AM EST 12/30/2011 7:18 AM EST Narrative Resulting Agency Comment Spec In Lab Remigio Ceron MD CHEMISTRY ORDERABLES Performing Organization Address [facility] de Phone Number [facility] * (ABNORMAL) APTT (12/30/2011 5:45 AM EST) Partial Thromboplastin Time 45(H) 25 - 35 sec [facility] Comment: Recommended therapeutic PTT range for full dose unfractionated heparin is 80-114 seconds. Blood specimen (specimen) 12/30/2011 5:45 AM EST 12/30/2011 6:10 AM EST Narrative Resulting Agency Comment Spec In Lab Andi Rene MD HEMATOLOGY ORDERABLE S Performing Organization Address [facility] Phone Number [facility] * (ABNORMAL) Glucose, fasting (12/30/2011 5:45 AM EST) Glucose Fasting 108(H) 65 - 99 mg/dL [facility] Comment: ?Fasting* Glucose Interpretive Criteria Normal ?65-99 [...] of Diabetes Mellitus, Position Statement from the [place] [employer]. ??Diabetes Care, Volume 33, Supplement 1, Nov 2009 Blood specimen (specimen) 12/30/2011 5:45 AM EST 12/30/2011 6:10 AM EST Narrative Resulting Agency Comment Spec In Lab Remigio Ceron MD CHEMISTRY ORDERABLES Performing Organization Address [facility] de Phone Number [facility] * (ABNORMAL) Triglyceride (12/30/2011 5:45 AM EST) Triglyceride 245(H) <=149 mg/dL [facility] Comment: Reference Range: Normal triglycerides: ??<150 mg/dL Borderline high: ??150-199 mg/dL High: ??200-499 mg/dL Very high: ??>aa=355 mg/dL ELISEO 2001; 285(19):0740-7320 Blood specimen (specimen) 12/30/2011 5:45 AM EST 12/30/2011 6:10 AM EST Narrative Resulting Agency Comment Spec In Lab Remigio Ceron MD CHEMISTRY ORDERABLES Performing Organization Address [facility] Co de Phone Number [facility] * (ABNORMAL) HDL/Cholesterol Profile (12/30/2011 5:45 AM EST) Cholesterol, Total 170 <=199 mg/dL [facility] Comment: Recommendations of the NCEP Adult Treatment Panel for the following risk cutoff thresholds for the [place] population: Desirable: <200 mg/dL Borderline High: 200-239 mg/dL High: > or = 240 mg/dL HDL Cholesterol 36(L) >=40 mg/dL [facility] Comment: Reference range: ??Low HDL: ?? < 40 mg/dL ??Normal: ?40-60 mg/dL ??Desirable: > 60 mg/dL ELISEO 2001; 285(19):4658-3206 Cholesterol/HDL Ratio 4.7 ratio [facility] Comment: A Cholesterol to HDL ratio below 4:1 is desirable. ??Studies suggest that increased CAD risk occurs at ratios above 5 for females and above 6 for men. ? [place] [employer] Association ??(http://www.americanheart.org) ? Jazmine Int Med, 1994; 121:641 ? AM J Med, 1998; 105(1A):48S Blood specimen (specimen) 12/30/2011 5:45 AM EST 12/30/2011 6:10 AM EST Narrative Resulting Agency Comment Spec In Lab Remigio Ceron MD CHEMISTRY ORDERABLES Performing Organization Address [facility] de Phone Number [facility] * (ABNORMAL) LDL Cholesterol, Direct (12/30/2011 5:45 AM EST) LDL Cholesterol, Direct 110(H) <=99 mg/dL [facility] Comment: The National Cholesterol Education Program (NCEP) has set the following guidelines for LDL Cholesterol: Reference range: ?? Optimal: ?<100 mg/dL ?? Near Optimal/Above Optimal: ?? 100-129 mg/dL ?? Borderline high: ?130-159 mg/dL ?? High: ? 160-189 mg/dL ?? Very high: ?>or=476 mg/dL ELISEO 2001: 285(84):3086-0586 Blood specimen (specimen) 12/30/2011 5:45 AM EST 12/30/2011 6:10 AM EST Narrative Resulting Agency Comment Spec In Lab Remigio Ceron MD CHEMISTRY ORDERABLES Performing Organization Address [facility] de Phone Number [facility] * (ABNORMAL) Cardiac Enzymes (12/30/2011 5:45 AM EST) [facility] Troponin-T 0.05(H) <=0.03 ng/mL [facility] Comment: 0.03 ng/mL: Represents the 99th percentile upper reference limit for normals. >0.03 ng/mL: Elevated cardiac troponin T level indicative of myocardial damage. Diagnosis of acute, evolving or recent DC requires a typical rise and gradual fall [...] consensus document of the Joint Society of Cardiology/[place] College [employer]iology Committee for the redefinition of myocardial infarction. Journal of the [place] College [employer] 2000; 36: 959-969] Creatine Kinase 82 0 - 200 unit/L ARIAN NELSON Blood specimen (specimen) 12/30/2011 5:45 AM EST 12/30/2011 6:10 AM EST Narrative Resulting Agency Comment Spec In Lab Remigio Ceron MD CHEMISTRY ORDERABLES ARIAN NELSON * XR chest routine PA & lateral (12/29/2011 11:59 PM EST) Anatomical Region Laterality Modality Chest N/A Radiographic Ofelia ging 12/29/2011 11:5 9 PM EST Impressions 12/30/2011 11:44 AM EST IMPRESSION: No acute cardiopulmonary abnormalities. ?? Film and interpretation reviewed by the attending Narrative 12/30/2011 11:44 AM EST CHEST RADIOGRAPH, PA AND LATERAL, 12/29/11; HISTORY: ??Chest pain. ?? TECHNIQUE: ??Chest radiograph, PA and lateral. ?? COMPARISON: ??None. FINDINGS: ??There is pleural effusion, pneumothorax, or focal pulmonary consolidation. The lung volumes are low. ??The cardiomediastinal silhouette and pulmonary vasculature are normal. ?? Limited views of the upper abdomen and bones are normal. ?? Procedure Note Cornelius Wellington MD - 12/30/2011 CHEST RADIOGRAPH, PA AND LATERAL, 12/29/11; HISTORY: Chest pain. TECHNIQUE: Chest radiograph, PA and lateral. COMPARISON: None. FINDINGS: There is pleural effusion, pneumothorax, or focal pulmonary consolidation. The lung volumes are low. The cardiomediastinal silhouetteand pulmonary vasculature are normal. Limited views of the upper abdomen and bones are normal. IMPRESSION IMPRESSION: No acute cardiopulmonary abnormalities. Film and interpretation reviewed by the attending Remigio Ceron MD IMG DX ORDERABLES * SCAN, PERIPHERAL BLOOD (12/29/2011 11:29 PM EST) Plat estimate Normal CERNER MILLENNIUM RBC Morphology Normal CERNE R MILLENNIUM Blood specimen (specimen) 12/29/2011 11:29 PM EST 12/29/2011 11:35 PM EST Narrative Resulting Agency Comment Spec In Lab Remigio Ceron MD HEMATOLOGY ORDERABLE S CERNER ROBY[facility]UM * (ABNORMAL) DIFFERENTIAL, AUTOMATED (12/29/2011 11:29 PM EST) Neutrophil % 86.3(H) 34.0 - 71.0 % CERNER MILLENNIUM Neutrophil Absolute 16.00(H) 1.50 - 6.30 x10(3)/mc L CERNER MILLENNIUM Lymph % 8.9(L) 19.0 - 53.0 % CERNER MILLENNIUM Lymphocytes Abs 1.6 1.0 - 3.6 x10(3)/mc L CERNER MILLENNIUM Monocyte % 4.1 4.0 - 13.0 % CERNER MILLENNIUM Monocyte Abs 0.8 0.2 - 1.0 x10(3)/mc L CERNER MILLENNIUM Eos % 0.3 0.0 - 7.0 % CERNER MILLENNIUM Eosinophils Abs 0.0 0.0 - 0.5 x10(3)/mc L CERNER MILLENNIUM Basophil % 0.2 0.0 - 2.0 % CERNER MILLENNIUM Baso Absolute 0.0 0.0 - 0.2 x10(3)/mc L CERNER MILLENNIUM Immature Gran % 0.20 0.00 - 0.66 % CERNER MILLENNIUM Comment: Immature granulocytes(IG's)percentage and absolute count will include metamyelocytes, myelocytes, and promyelocytes. Blood smears from CBCs yielding IG's will be scanned manually for concordance. If this scan disagrees with the automated IG or if promyelocytes are noted, a manual differential will be performed. Immature Gran Absolute 0.04 0.00 - 0.05 x10(3)/mc L CERNER MILLENNIUM Blood specimen (specimen) 12/29/2011 11:29 PM EST 12/29/2011 11:34 PM EST Remigio Ceron MD HEMATOLOGY ORDERABLE S Performing Organization Address [facility] de Phone Number ARIAN NELSON * (ABNORMAL) Cardiac Enzymes (12/29/2011 11:29 PM EST) Troponin-T 0.08(H) <=0.03 ng/mL [facility] Comment: 0.03 ng/mL: Represents the 99th percentile upper reference limit for normals. >0.03 ng/mL: Elevated cardiac troponin T level indicative of myocardial damage. Diagnosis of acute, evolving or recent DC requires a typical rise and gradual fall [...] consensus document of the Joint Society of Cardiology/[place] College [employer] Committee for the redefinition of myocardial infarction. Journal of the [place] College of [employer]iology 2000; 36: 959-969] Creatine Kinase 86 0 - 200 unit/L ARIAN OMAR Blood specimen (specimen) 12/29/2011 11:29 PM EST 12/29/2011 11:34 PM EST Narrative Resulting Agency Comment Spec In Lab Remigio Ceron MD CHEMISTRY ORDERABLES Performing Organization Address [facility] de Phone Number ARIAN NELSON * Prothrombin Time (12/29/2011 11:29 PM EST) Prothrombin Time 13.2 11.9 - 14.7 sec [facility] Comment: [facility] Transfusion Committee Guidelines: INR less than 2.0, PTT less than OR equal to 43.5 seconds, or Fibrinogen greater than or equal to 100 mg/dl indicate adequate procoagulant activity for hemostasis in patients without underlying bleeding disorders. International Normalization Ratio 1.0 0.9 - 1.1 ARIAN ROBYPETR Blood specimen (specimen) 12/29/2011 11:29 PM EST 12/29/2011 11:34 PM EST Narrative Resulting Agency Comment Spec In Lab Remigio Ceron MD HEMATOLOGY ORDERABLE S Performing Organization Address [facility] Co de Phone Number ARIAN CAENNIUM * Hepatic Function Panel (12/29/2011 11:29 PM EST) Protein, Total 7.3 6.4 - 8.3 gm/dL CERNER MILLENNIUM Albumin 4.1 3.2 - 5.2 gm/dL CERNER MILLENNIUM Aspartate Aminotransferase 18 0 - 39 unit/L CERNER MILLENNIUM Alanine Aminotransferase 26 0 - 55 unit/L CERNER MILLENNIUM Alkaline Phosphatase 83 40 - 120 unit/L CERNER MILLENNIUM Bilirubin, Total 0.3 0.2 - 1.3 mg/dL CERNER MILLENNIUM Bilirubin, Direct 0.1 0.0 - 0.3 mg/dL CERNER MILLENNIUM Blood specimen (specimen) 12/29/2011 11:29 PM EST 12/29/2011 11:34 PM EST Narrative Resulting Agency Comment Spec In Lab Remigio Ceron MD CHEMISTRY ORDERABLES Performing Organization Address [facility] de Phone Number ARIAN CERDAIUM * pro-Brain Natriuretic Peptide (12/29/2011 11:29 PM EST) NT-proBNP 114 <=125 pg/mL CERBRIAN CAENNIUM Blood specimen (specimen) 12/29/2011 11:29 PM EST 12/29/2011 11:34 PM EST Narrative Resulting Agency Comment Spec In Lab Remigio Ceron MD CHEMISTRY ORDERABLES Performing Organization Address [facility] Co de Phone Number ARIAN CERDAIUM * TSH (12/29/2011 11:29 PM EST) Thyroid Stimulating Hormone 0.39 0.27 - 4.20 mcIU/mL CERNER ROBYENNIUM Blood specimen (specimen) 12/29/2011 11:29 PM EST 12/29/2011 11:34 PM EST Narrative Resulting Agency Comment Spec In Lab Remigio Ceron MD CHEMISTRY ORDERABLES Performing Organization Address [facility] Phone Number ARIAN CERDAIUM * Phosphorus (12/29/2011 11:29 PM EST) Phosphorus 3.1 2.5 - 4.5 mg/dL CERNER MILLENNIUM Blood specimen (specimen) 12/29/2011 11:29 PM EST 12/29/2011 11:34 PM EST Narrative Resulting Agency Comment Spec In Lab Remigio Ceron MD CHEMISTRY ORDERABLES Performing Organization Address [facility] Phone Number ARIAN CAENNIUM * Magnesium (12/29/2011 11:29 PM EST) Magnesium 0.83 0.69 - 1.07 mmol/L CERNER MILLENNIUM Blood specimen (specimen) 12/29/2011 11:29 PM EST 12/29/2011 11:34 PM EST Narrative Resulting Agency Comment Spec In Lab Remigio Ceron MD CHEMISTRY ORDERABLES Performing Organization Address [facility] Phone Number CERBRIAN CAENNIUM * (ABNORMAL) Basic Metabolic Panel (non-fasting) (12/29/2011 11:29 PM EST) Glucose 163 60 - 199 mg/dL CERNER MILLENNIUM Comment:Diabetes: >=200 mg/d L plus symptoms Blood Urea Nitrogen 13 10 - 20 mg/dL CERNER MILLENNIUM Creatinine 0.82 0.80 - 1.50 mg/dL CERNER MILLENNIUM Sodium 134(L) 135 - 145 mmol/L CERNER MILLENNIUM Potassium 3.6 3.5 - 5.0 mmol/L CERNER MILLENNIUM Comment: Please note: ??Patients with WBC >100,000 may have falsely elevated Potassium levels. ??For accurate Potassium quantification in these patients send serum separator tube (gold top) for subsequent determinations. ??Contact the Clinical Chemistry Laboratory if there are any questions. Chloride 99 98 - 107 mmol/L CERNER MILLENNIUM Carbon Dioxide 24 22 - 31 mmol/L CERNER MILLENNIUM Anion Gap 11 5 - 15 mmol/L CERNER MILLENNIUM Calcium 8.9 8.5 - 10.5 mg/dL CERNER MILLENNIUM Est Glomerular Filtration Rate >60 >=60 CERNER MILLENNIUM Comment: The National Kidney Disease Education Program (NKDEP) has recommended all laboratories report estimated GFR (eGFR) along with plasma creatinine measurements to assist you with recognition of early kidney disease. Caveats: ??Plasma creatinine should be at steady-state (unchanged within the past week). For patients multiply eGFR by 1.2. The MDRD equation has not been validated for pediatric patients and is only valid for patients with age >= 18 years. At present, NKDEP does NOT recommend using the MDRD equation for drug dosing purposes and pharmacists should continue to use their current dosing methods. In addition, numerical eGFR values greater than 60 ml/min/1.73 square meters should be treated as > 60, and not an exact number due to greater inaccuracies at these higher values. Per NKDEP, they classify normal renal function as any GFR >60ml/min/1.73 square meters; chronic kidney disease when GFR <60, and renal failure when GFR <15. ??This calculation may not be valid for patients with atypical muscle mass (very lean or obese), acute renal failure, and in patients with diabetic kidney disease. References: http://nkdep.nih.gov/resources/NKDEP_Suggestn4Labs_0606_508.pdf http://www.kidney.org/professionals/kls/pdf/faq_gfr.pdf Blood specimen (specimen) 12/29/2011 11:29 PM EST 12/29/2011 11:34 PM EST Narrative Resulting Agency Comment Spec In Lab Remigio Ceron MD CHEMISTRY ORDERABLES ARIAN NELSON * (ABNORMAL) CBC (with Diff) (12/29/2011 11:29 PM EST) White Blood Cell 18.5(H) 4.0 - 10.0 x10(3)/mc L CERNER MILLENNIUM Red Blood Cell 4.50(L) 4.63 - 6.08 x10(6)/mc L CERNER MILLENNIUM Hemoglobin 13.9 13.7 - 17.5 gm/dL CERNER MILLENNIUM Hematocrit 39.6(L) 40.0 - 51.0 % CERNER MILLENNIUM Mean Cell Volume 88.0 79.0 - 92.0 fL CERNER MILLENNIUM Mean Cell Hemoglobin 30.9 25.6 - 32.2 pg CERNER MILLENNIUM Mean Cell Hemoglobin Concentration 35.1 32.0 - 36.5 gm/dL CERNER MILLENNIUM Platelet 221 145 - 370 x10(3)/mc L CERNER MILLENNIUM RDW Standard Deviation 42.0 35.0 - 46.0 fL CERNER MILLENNIUM RDW coefficient of variation 13.0 10.9 - 14.4 % CERNER MILLENNIUM Mean Platelet Volume 10.5 9.0 - 12.0 fL [facility] Blood specimen (specimen) 12/29/2011 11:29 PM EST 12/29/2011 11:34 PM EST Narrative Resulting Agency Comment Spec In Lab Remigio Ceron MD HEMATOLOGY ORDERABLE S Performing Organization Address [facility] de Phone Number [facility] * APTT (12/29/2011 11:29 PM EST) Partial Thromboplastin Time 34 25 - 35 sec [facility] Comment: Recommended therapeutic PTT range for full dose unfractionated heparin is 80-114 seconds. Blood specimen (specimen) 12/29/2011 11:29 PM EST 12/29/2011 11:34 PM EST Narrative Resulting Agency Comment Spec In Lab Remigio Ceron MD HEMATOLOGY ORDERABLE S Performing Organization Address [facility] de Phone Number [facility] * EKG 12 Lead (12/29/2011 11:13 PM EST) Ventricular rate 108 BPM MUSE SYSTEM Atrial Rate 108 BPM MUSE SYSTEM P-R Interval 150 ms MUSE SYSTEM QRS Duration 106 ms MUSE SYSTEM Q-T Interval 340 ms MUSE SYSTEM QTC Calculated (Bezet) 455 ms MUSE SYSTEM Calculated P [place] 19 degrees MUSE SYSTEM Calculated R Stafford 31 degrees MUSE SYSTEM Calculated T Stafford 51 degrees MUSE SYSTEM INTERPRETATION Sinus tachycardia Nonspecific T wave abnormality Abnormal ECG No previous ECGs available Confirmed by Madi FORD MD, Nathaniel ([id number]) on 12/30/2011 2:22:07 PM MUSE SYSTEM 12/29/2011 11:1 3 PM EST 12/30/2011 2:22 PM EST Remigio Ceron MD ECG ORDERABLES MUSE SYSTEM documented in this encounter Visit Diagnoses Diagnosis Chest pain- Primary Chest pain, unspecified HTN (hypertension) Unspecified essential hypertension Hyperlipidemia Other and unspecified hyperlipidemia Depression Depressive disorder, not elsewhere classified 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 Coronary artery disease Coronary atherosclerosis of unspecified type of vessel, [place] or graft documented in this encounter Administered Medications Inactive Administered Medications - up to 3 most recent administrations Medication Order MAR Action Action Date Dose Rate Site acetaminophen (TYLENOL) tablet 1,000 mg 1,000 mg, Oral, EVERY 6 HOURS SCHEDULED, First dose on Wed01/04/12 at 1800, Until Discontinued, For pain when taking by mouth , Routine Given 01/08/2012 12:00 PM EST 1,000 mg Given 01/08/2012 6:00 AM EST 1,000 mg Given 01/07/2012 11:51 PM EST 1,000 mg acetaminophen (TYLENOL) tablet 650 mg 650 mg, Oral, EVERY 4 HOURS PRN, Starting on Wed12/29/11 at 2257, Until Wed01/04/12 at 1618, Pain, Headaches, Maximum dose of acetaminophen is 4000 mg from all sources in 24 hours., Pre-Admission Testing (Prior to Admission), Routine Given 12/31/2011 6:24 AM EST 650 mg Given 12/31/2011 12:40 AM EST 650 mg Given 12/30/2011 5:57 AM EST 650 mg albumin, human 5% 250 mL bottle Intravenous, ONCE, 1 dose, On Wed01/04/12 at 1645, STAT Given 01/04/2012 10:00 PM EST aminocaproic acid (AMICAR) 3 g/150 mL infusion INFUSION Starting on Wed01/04/12 at 1548, 1 dose, Until Wed01/04/12 at 1627, HERMAN LOYD: Cabinet Override aminocaproic acid (AMICAR) 3g in dextrose 5% 150 mL infusion 3 g, Intravenous, at 50 mL/hr, ONCE, On Wed01/04/12 at 1645, 1 dose Given 01/04/2012 5:00 PM EST 50 mL/hr New Bag 01/04/2012 4:00 PM EST mL/hr aspirin chewable tablet 81 mg 81 mg, Oral, DAILY, First dose on Wed01/05/12 at 0900, Until Discontinued, Start on post-op day 1 in the AM., Routine Given 01/08/2012 9:00 AM EST 81 mg Given 01/07/2012 9:00 AM EST 81 mg Given 01/06/2012 9:00 AM EST 81 mg aspirin EC tablet 325 mg 325 mg, Oral, DAILY, First dose on Wed12/30/11 at 0900, Until Discontinued, Pre-Admission Testing (Prior to Admission), Routine Given 01/04/2012 9:00 AM EST 325 mg Given 01/03/2012 9:00 AM EST 325 mg Given 01/02/2012 9:00 AM EST 325 mg bisacodyl (DULCOLAX) suppository 10 mg 10 mg, Rectal, DAILY PRN, Starting on Wed01/07/12 at 0000, Until Wed01/08/12 at 1659, Constipation, Starting post-op day 3., Routine Given 01/07/2012 9: 44 AM EST 10 mg BMX Oral Suspension 5 mL, Oral, 2 TIMES DAILY, First dose on Wed12/30/11 at 2100, Until Discontinued, Each 5mL contains equal parts of Maalox, Lidocaine, and Diphenhydramine Given 01/04/2012 9:00 AM EST 5 mLs Given 01/03/2012 9:00 AM EST 5 mLs Given 01/02/2012 9:00 AM EST 5 mLs calcium carbonate (TUMS) chewable tablet 500 mg 500 mg, Oral, DAILY PRN, Starting on Wed01/06/12 at 0700, Until Wed01/08/12 at 1659, Heartburn, Routine Given 01/06/2012 7:07 AM EST 500 mg ceFURoxime (ZINACEF) 750mg vial attach to sodium chloride 0.9% 100 mL Mini-Bag Plus 750 mg, Intravenous, EVERY 8 HOURS, 3 doses, First dose on Wed01/04/12 at 2300, Last dose on Wed01/05/12 at 1500, Administer over 60 Minutes, Attach to 100 mL sodium Chloride Mini-bag Plus. Give first dose at 8 hours after dose in operating room. Given by Other 01/05/2012 3:00 PM EST 750 mg 100 m L/hr Given 01/05/2012 7:00 AM EST 750 mg 100 mL/hr Given 01/04/2012 11:00 PM EST 750 mg 100 mL/hr chlorhexidine (PERIDEX) 0.12 % oral solution 15 mL 15 mL, Oral, EVERY 12 HOURS SCHEDULED (2 times per day), First dose on Wed01/04/12 at 2100, Until Discontinued, [place] teeth., Routine Given 01/05/2012 9:00 AM EST 15 mLs Given 01/04/2012 9:00 PM EST 15 mLs clopidogrel (PLAVIX) tablet 600 mg 600 mg, Oral, ONCE, 1 dose, On Wed12/30/11 at 0745, STAT Given 12/30/2011 7:45 AM EST 600 mg diaZEPam (VALIUM) tablet 5 mg 5 mg, Oral, ONCE, 1 dose, On Wed12/30/11 at 0930, Cath (Day of Procedure), Routine Given 12/30/2011 9:30 AM EST 5 mg diaZEPam (VALIUM) tablet 5 mg 5 mg, Oral, ONCE, 1 dose, On Wed12/30/11 at 2215, Routine Given 12/30/2011 10:14 PM EST 5 mg diphenhydrAMINE (BENADRYL) tablet 25 mg 25 mg, Oral, ONCE, 1 dose, On Wed12/30/11 at 0930, Cath (Day of Procedure), Routine Given 12/30/2011 9:30 AM EST 25 mg esomeprazole (NEXIUM) capsule 40 mg 40 mg, Oral, DAILY, First dose on Wed01/05/12 at 0900, Until Discontinued, If unable to take PO, may give IV, Routine Given 01/08/2012 9:00 AM EST 40 m g Given 01/07/2012 9:00 AM EST 40 mg Given 01/06/2012 9:00 AM EST 40 mg famotidine (PEPCID) tablet 20 mg 20 mg, Oral, 2 TIMES DAILY, First dose on Wed12/29/11 at 2315, Until Discontinued, Pre-Admission Testing (Prior to Admission), Routine Given 01/04/2012 9:00 AM EST 20 mg Given 01/03/2012 9:00 PM EST 20 mg Given 01/03/2012 9:00 AM EST 20 mg fentaNYL 2.5 mg/50 mL infusion INFUSION 1 dose, Starting on Wed01/04/12 at 1548, Until Wed01/04/12 at 1618, HERMAN LOYD: Cabinet Override fentaNYL 2500mcg/50mL infusion 0-100 mcg/hr (rounded to 0-2 mL/hr), Intravenous, CONTINUOUS, Starting on Wed01/04/12 at 1645, Until Wed01/05/12 at 1854, Titrate to patient comfort. Dose not to exceed 100 mcg/hour Rate/Dose Verify 01/05/2012 4:00 AM EST 50 mcg/hr 1 mL/hr Rate/Dose Verify 01/05/2012 2:00 AM EST 50 mcg/hr 1 mL/hr Rate/Dose Verify 01/05/2012 12:00 AM EST 50 mcg/hr 1 mL/h r furosemide (LASIX) injection 20 mg 20 mg, Intravenous, 2 TIMES DAILY, First dose on Wed01/05/12 at 1200, Until Discontinued Given 01/07/2012 9:00 AM EST 2 0 mg Given 01/06/2012 5:00 PM EST 20 mg Given 01/06/2012 9:00 AM EST 20 mg furosemide (LASIX) injection 20 mg 20 mg, Intravenous, ONCE, 1 dose, On Angelita 01/07/12 at 1015 Given 01/07/2012 10:15 AM EST 20 mg furosemide (LASIX) injection 40 mg 40 mg, Intravenous, 2 TIMES DAILY, First dose (after last modification) on Angelita 01/07/12 at 1700, Until Discontinued Given 01/08/2012 10:00 AM EST 40 mg Given 01/07/2012 5:00 PM EST 40 mg heparin (porcine) 25,000 unit/500 mL infusion 1 dose, Starting on Wed12/29/11 at 2046, Until Wed12/29/11 at 2100, MATIAS GUTIERREZ: Cabinet Override heparin (porcine) injection 2,000-4,000 Units 2,000-4,000 Units, Intravenous, BOLUS PER HEPARIN PROTOCOL, Starting on Wed12/29/11 at 2300, Until Wed01/01/12 at 1639, Per Protocol, Adjust to dosing chart, Patient Weight 115-greater kg PTT less than 60 seconds - 4,000 units PTT 60-79 seconds - 2,000 units PTT 80-114 seconds - no bolus , Pre-Admission Testing (Prior to Admission), Routine Given 12/30/2011 6:35 AM EST 4,000 Units Given 12/30/2011 12:35 AM EST 4,000 Units heparin (porcine) injection 2,000-4,000 Units 2,000-4,000 Units, Intravenous, BOLUS PER HEPARIN PROTOCOL, Starting on Wed12/30/11 at 1533, Until Wed01/01/12 at 1405, Per Protocol, Adjust to dosing chart, Patient Weight 115-greater kg PTT less than 60 seconds - 4,000 units PTT 60-79 seconds - 2,000 units PTT 80-114 seconds - no bolus , Routine Given 12/31/2011 4:26 AM EST 4,000 U nits Given 12/30/2011 10:14 PM EST 4,000 Units heparin (porcine) injection 2,000-4,000 Units 2,000-4,000 Units, Intravenous, BOLUS PER HEPARIN PROTOCOL, Starting on Wed01/01/12 at 1707, Until Wed01/04/12 at 1618, Per Protocol, Adjust to dosing chart, Patient Weight 115-greater kg PTT less than 60 seconds - 4,000 units PTT 60-79 seconds - 2,000 units PTT 80-114 seconds - no bolus , Routine Given 01/03/2012 1:13 AM EST 2,000 U nits Given 01/02/2012 6:27 PM EST 4,000 Units Given 01/02/2012 6:47 AM EST 4,000 Units heparin 25,000 units in dextrose 5% 500 mL infusion 350-7,000 Units/hr (rounded to 7-140 mL/hr), Intravenous, CONTINUOUS, Starting on Wed12/29/11 at 2330, Until Wed01/01/12 at 1405, Patient Weight 115-greater kg Initial dose - [...] than 145 sec X 2 - call fish housekeeper See Bolus dosing guidance for aPTT values less than 80 seconds under PRN medications, Pre-Admission Testing (Prior to Admission), Routine Rate/Dose Change 12/30/2011 6:34 AM EST 1,900 Units/hr 38 mL/hr Rate/Dose Change 12/30/2011 12:35 AM EST 1,450 Units/hr 29 mL/hr New Bag 12/29/2011 9:00 PM EST 1,000 Units/hr 20 mL/hr heparin 25,000 units in dextrose 5% 500 mL infusion 350-7,000 Units/hr (rounded to 7-140 mL/hr), Intravenous, CONTINUOUS, Starting on Wed12/30/11 at 1600, Until Wed01/01/12 at 1405, Patient Weight 115-greater kg Initial dose - [...] than 145 sec X 2 - call fish housekeeper See Bolus dosing guidance for aPTT values less than 80 seconds under PRN medications, Routine New Bag 01/01/2012 4:57 AM EST 2,850 Units/hr 57 mL/hr Rate/Dose Change 01/01/2012 12:26 AM EST 2,850 Units/hr 57 mL/hr Rate/Dose Change 12/31/2011 6:03 PM EST 2,600 Units/hr 52 mL/hr heparin 25,000 units in dextrose 5% 500 mL infusion 350-7,000 Units/hr (rounded to 7-140 mL/hr), Intravenous, CONTINUOUS, Starting on Wed01/01/12 at 1730, Until Wed01/04/12 at 1618, Patient Weight 115-greater kg Initial dose - [...] than 145 sec X 2 - call fish housekeeper See Bolus dosing guidance for aPTT values less than 80 seconds under PRN medications, Routine New Bag 01/04/2012 12:50 AM EST 2,850 Units/hr 57 mL/h r Rate/Dose Change 01/03/2012 8:00 AM EST 2,850 Units/hr 57 mL/hr Rate/Dose Change 01/03/2012 1:12 AM EST 2,850 Units/hr 57 mL/hr HYDROmorphone (DILAUDID) injection 0.5 mg 0.5 mg, Intravenous, EVERY 2 HOURS PRN, Starting on Wed01/04/12 at 1625, Until Wed01/05/12 at 2238, Pain, Routine Given 01/05/2012 10:33 PM EST 0.5 mg Given 01/05/2012 7:00 PM EST 0.5 mg Given 01/05/2012 1:25 PM EST 0.5 mg HYDROmorphone (DILAUDID) injection 0.5 mg 0.5 mg, Intravenous, ONCE, 1 dose, On Wed01/05/12 at 1445, Routine Given 01/05/2012 2:23 PM EST 0.5 mg HYDROmorphone (DILAUDID) tablet 2-6 mg 2-6 mg, Oral, EVERY 4 HOURS PRN, Starting on Wed01/04/12 at 1624, Until Wed01/05/12 at 2238, Pain, For pain when taking by mouth, Routine Given 01/05/2012 9:00 PM EST 6 mg Given 01/05/2012 4:46 PM EST 6 mg Given 01/05/2012 11:39 AM EST 4 mg HYDROmorphone (DILAUDID) tablet 2-6 mg 2-6 mg, Oral, EVERY 3 HOURS PRN, Starting on Wed01/05/12 at 2237, Until Wed01/08/12 at 1659, Pain, For pain when taking by mouth, Routine Given 01/08/2012 12:30 PM EST 6 mg Given 01/08/2012 8:50 AM EST 4 mg Given 01/08/2012 6:30 AM EST 2 mg insulin aspart (NOVOLOG) PEN injection 1-4 Units 1-4 Units, Subcutaneous, 4 TIMES DAILY BEFORE MEALS & NIGHTLY, First dose on Wed01/06/12 at 1215, Until Discontinued, CORRECTION BOLUS Sensitive to insulin lean patient or total daily dose of all insulin needed to achieve glycemic control less than 30 units BG 140 - 160 Give 1 unit BG 161 - 200 Give 2 units BG 201 - 240 Give 3 units BG greater than 240, give 4 units every 2 hours until BG less than 240 (no more than three times) & call for new basal insulin orders , Routine Given 01/08/2012 7:30 AM EST 1 Units Given 01/07/2012 9:00 PM EST 2 Units Given 01/06/2012 4:30 PM EST 0 Units insulin regular human (HUMULIN;NOVOLIN) 150 Units in sodium chloride 0.9% 150 mL infusion 0.5-16 Units/hr (rounded to 0.5-16 mL/hr), Intravenous, CHANGE BAG EVERY EVENING, First dose on Wed01/05/12 at 1800, Until Discontinued, Type 2 diabetes. Current blood glucose 140 - 179 Titration- aim for target range of 140 - 180 mg/dL. Check BG every hour unless otherwise indicated. [[ No initial bolus. Begin continuous infusion at 2 units/hour. ]] Current BG less than 80 - Stop insulin, give juice or D50 per protocol. Re-check BG in 30 minutes and as soon as BG is greater than 80, restart with rate 50% of previous rate. If previous rate had been 0.5 units/hour, restart at 0.5 units/hour when BG greater than 100. Current BG 80 - 139 - If BG dropped 10 mg/dL or more since last test, decrease rate by 50% and re-check in 30 minutes. Otherwise, decrease rate by 0.5 units/hour. Current BG 140 - 180 - If BG dropped 50 mg/dL or more since last test, decrease rate by 1 unit/hour. Otherwise, maintain same rate. Current BG 181 - 220 - If BG is lower than last test, maintain same rate. Otherwise, increase rate by 0.5 units/hour. Current BG 221 - 250 - If BG dropped 30 mg/dL or more since last test, maintain same rate. Otherwise, increase rate by 1 unit/hour. Current BG greater than 250 - Increase rate by 1 unit/hour AND bolus with Regular insulin IV as per IV Bolus Scale. Re-check BG in 30 minutes. Rate/Dose Change 01/05/2012 8:58 PM EST 0 Units/hr 0 mL/hr Rate/Dose Change 01/05/2012 8:20 PM EST 0.5 Units/hr 0.5 m L/hr New Bag 01/05/2012 7:24 PM EST 1 Units/hr 1 mL/hr lisinopril (PRINIVIL;ZESTRIL) tablet 5 mg 5 mg, Oral, DAILY, First dose on Wed12/30/11 at 0900, Until Discontinued, Hold for SBP less than 100 mmHg OR with symptoms AND call provider , Pre-Admission Testing (Prior to Admission), Routine Given 01/04/2012 9:00 AM EST 5 mg Given 01/03/2012 9:00 AM EST 5 mg Given 01/02/2012 9:00 AM EST 5 mg magnesium hydroxide (MILK OF MAGNESIA) oral suspension 10 mL 10 mL, Oral, DAILY, First dose on Wed01/06/12 at 0900, Until Discontinued, Post-op day 2. Do not use with renal insufficiency., Routine Given 01/07/2012 9:0 0 AM EST 10 mLs Given 01/06/2012 9:00 AM EST 10 mLs metFORMIN (GLUCOPHAGE) tablet 500 mg 500 mg, Oral, DAILY WITH BREAKFAST, First dose on Wed01/08/12 at 1100, Until Discontinued, Routine Given 01/08/2012 11:00 AM EST 500 mg metoprolol (LOPRESSOR) tablet 12.5 mg 12.5 mg, Oral, EVERY 6 HOURS SCHEDULED, First dose on Wed12/30/11 at 0000, Until Discontinued, Hold for SBP less than 100 mmHG or HR less than 60 beats per minute, Pre-Admission Testing (Prior to Admission), Routine Given 12/30/2011 6:00 PM EST 12.5 mg Given 12/30/2011 12:00 PM EST 12.5 mg Given 12/30/2011 5:57 AM EST 12.5 mg metoprolol tartrate (LOPRESSOR) tablet 25 mg 25 mg, Oral, EVERY 6 HOURS SCHEDULED, First dose (after last modification) on Angeliat 12/31/11 at 0045, Until Discontinued, Hold for SBP less than 100 mmHG or HR less than 60 beats per minute, Pre-Admission Testing (Prior to Admission), Routine Given 01/04/2012 6:00 AM EST 25 mg Given 01/04/2012 12:00 AM EST 25 mg Given 01/03/2012 6:00 PM EST 25 mg metoprolol tartrate (LOPRESSOR) tablet 25 mg 25 mg, Oral, EVERY 12 HOURS SCHEDULED (2 times per day), First dose on Wed01/05/12 at 1200, Until Discontinued, Routine Given 01/08/2012 9:00 AM EST 25 mg Given 01/07/2012 8:01 PM EST 25 mg Given 01/07/2012 9:00 AM EST 25 mg mupirocin calcium (BACTROBAN) 2 % nasal ointment Each Nare, 3 TIMES DAILY, First dose on Wed01/04/12 at 0015, Until Discontinued, For pre-op use Given 01/04/2012 6:00 AM EST Given 01/04/2012 1:10 AM EST nitroGLYcerin (NITROSTAT) SL tablet 0.4 mg 0.4 mg, Sublingual, EVERY 5 MIN PRN, Starting on Wed12/30/11 at 1132, Until Wed01/04/12 at 1618, Chest pain, May repeat every 5 minutes for a total of three doses. Notify provider if chest pain not relieved with nitroglycerin. Do not administer nitroglycerin if the patinet has received or taken phosphodiesterase (PDE-5) inhibitors such as sildenafil, tadalafil or vardenafil within the last 24 to 72 hours., Routine Given 12/30/2011 5:06 PM EST 0.4 mg penicillin G benzathine (BICILLIN) 1,200,000 unit/2 mL injection 1.2 Million Units 1.2 Million Units, Intramuscular, ONCE, 1 dose, On 01/02/12 at 1600, Routine Given 01/02/2012 4:00 PM EST 1.2 Million Units PHENYLephrine (SINGH-SYNEPHRINE) 20 mg in sodium chloride 250 mL infusion 0-200 mcg/min (rounded to 0-150 mL/hr), Intravenous, CONTINUOUS, Starting on Wed01/04/12 at 1700, Until Wed01/05/12 at 1854, Titrate to keep systolic blood pressure greater than 90 mmHg.Dose not to exceed 200 mcg/minute., Routine Rate/Dose Change 01/05/2012 6:00 AM EST 20 mcg/min 15 mL/hr Rate/Dose Change 01/05/2012 5:00 AM EST 40 mcg/min 30 mL/h r Rate/Dose Change 01/05/2012 4:00 AM EST 60 mcg/min 45 mL/h r potassium chloride (K-DUR) tablet 20 mEq 20 mEq, Oral, 2 TIMES DAILY, First dose on Wed01/05/12 at 2100, Until Discontinued, Routine Given 01/07/2012 9:00 AM EST 20 mEq Given 01/06/2012 8:09 PM EST 20 mEq Given 01/06/2012 9:00 AM EST 20 mEq potassium chloride (K-DUR) tablet 40 mEq 40 mEq, Oral, ONCE, 1 dose, On Wed12/31/11 at 0715, Routine Given 12/31/2011 11:48 AM EST 40 mEq potassium chloride (K-DUR) tablet 40 mEq 40 mEq, Oral, ONCE, 1 dose, On Wed01/06/12 at 1700, Routine Given 01/06/2012 5:00 PM EST 40 mEq potassium chloride (K-DUR) tablet 40 mEq 40 mEq, Oral, 2 TIMES DAILY, First dose (after last modification) on Wed01/07/12 at 2100, Until Discontinued, Routine Given 01/08/2012 9:00 AM EST 40 mEq Given 01/07/2012 8:05 PM EST 40 mEq propofol (DIPRIVAN) 10 mg/mL infusion 1 dose, Starting on Wed01/04/12 at 1626, Until Wed01/04/12 at 1630, EVE RIVERA: Cabinet Override propofol (DIPRIVAN) infusion 0-50 mcg/kg/min ? 123.3 kg (rounded to 0-37 mL/hr), Intravenous, CONTINUOUS, Starting on Wed01/04/12 at 1700, Until Wed01/05/12 at 1854, Titrate to sedation level of RASS -1. Dose not to exceed 50 mcg/kg/minute. Discontinue upon extubation., Routine Rate/Dose Change 01/04/2012 5:00 PM EST 40.552 mcg/kg/min 30 mL/hr New Bag 01/04/2012 4:30 PM EST mL/hr protriptyline (VIVACTIL) tablet 10 mg 10 mg, Oral, 3 TIMES DAILY, First dose on Wed01/05/12 at 1100, Until Discontinued, Patient using own, Routine Given 01/08/2012 9:00 AM EST 10 mg Given 01/07/2012 8:01 PM EST 10 mg Given 01/07/2012 3:00 PM EST 10 mg protriptyline (VIVACTIL) tablet 10 mg 10 mg, Oral, EVERY 8 HOURS, First dose on Wed12/29/11 at 2345, Until Discontinued, Routine Given 01/04/2012 7:45 AM EST 10 mg Given 01/03/2012 11:45 PM EST 10 mg Given 01/03/2012 3:45 PM EST 10 mg senna-docusate (PERICOLACE) 8.6-50 mg per tablet 2 tablet 2 tablet, Oral, DAILY, First dose on Wed01/05/12 at 2100, Until Discontinued, Post-op day 1, Routine Given 01/07/2012 8:01 PM EST 2 tablets Given 01/06/2012 8:09 PM EST 2 tablets Given 01/05/2012 8:21 PM EST 2 tablets sertraline (ZOLOFT) tablet 50 mg 50 mg, Oral, DAILY, First dose on Wed01/05/12 at 1015, Until Discontinued, Routine Given 01/07/2012 8:01 PM EST 50 mg Given 01/06/2012 8:10 PM EST 50 mg Given 01/05/2012 8:21 PM EST 50 mg simvastatin (ZOCOR) tablet 20 mg 20 mg, Oral, EVERY EVENING, First dose on Wed01/05/12 at 1700, Until Discontinued, Routine Given 01/07/2012 5:00 PM EST 20 mg Given 01/06/2012 5:00 PM EST 20 mg Given 01/05/2012 4:56 PM EST 20 mg simvastatin (ZOCOR) tablet 40 mg 40 mg, Oral, DAILY WITH DINNER, First dose on Wed12/30/11 at 1700, Until Discontinued, Pre-Admission Testing (Prior to Admission), Routine Given 01/03/2012 5:00 PM EST 40 mg Given 01/02/2012 5:00 PM EST 40 mg Given 01/01/2012 6:33 PM EST 40 mg sodium chloride 0.45% infusion 100 mL/hr, Intravenous, CONTINUOUS, Starting on Wed12/30/11 at 1200, Until Wed12/30/11 at 1759 New Bag 12/30/2011 12:00 PM EST 100 mL/hr 100 mL/hr sodium chloride 0.9 % flush 5 mL 5 mL, Intravenous, EVERY 12 HOURS, First dose on Wed12/29/11 at 2330, Until Discontinued, Pre-Admission Testing (Prior to Admission) Given 01/03/2012 11:30 PM EST 5 mLs Given 01/03/2012 11:30 AM EST 5 mLs Given 01/02/2012 11:30 PM EST 5 mLs sodium chloride 0.9 % flush 5 mL 5 mL, Intravenous, EVERY 12 HOURS, First dose on Wed12/30/11 at 0915, Until Discontinued Given 01/03/2012 9:15 PM EST 5 mLs Given 01/03/2012 9:15 AM EST 5 mLs Given 01/02/2012 9:15 PM EST 5 mLs sodium chloride 0.9 % flush 5 mL 5 mL, Intravenous, EVERY 8 HOURS, First dose on Wed01/05/12 at 1915, Until Discontinued Given 01/08/2012 11:15 AM EST 5 mLs Given 01/08/2012 3:15 AM EST 5 mLs Given 01/07/2012 8:01 PM EST 5 mLs sodium chloride 0.9% infusion 1,000 mL, at 100 mL/hr, Intravenous, CONTINUOUS, Starting on Wed12/30/11 at 0915, Until Wed01/04/12 at 1618 New Bag 12/30/2011 9:15 AM EST 1,000 mLs 100 mL/hr sodium chloride 0.9% infusion 0-500 mL/hr, Intravenous, CONTINUOUS, Starting on Wed01/04/12 at 1700, Until Wed01/05/12 at 1854, For systolic BP less than 90 mmHg . Call fish housekeeper for additional fluid orders: pager #[phone]. Rate/Dose Verify 01/05/2012 2:00 AM EST 125 mL/hr 125 mL/hr Rate/Dose Change 01/05/2012 12:00 AM EST 125 mL/hr 125 mL /hr New Bag 01/04/2012 10:00 PM EST 250 mL/hr 250 mL/hr sodium chloride 0.9% infusion 10-30 mL/hr, Intravenous, DAILY PRN, Starting on Wed01/04/12 at 1621, Until Wed01/08/12 at 1659 Rate/Dose Verify 01/05/2012 8:22 PM EST 10 mL/hr 10 mL/hr Rate/Dose Change 01/04/2012 8:00 PM EST 10 mL/hr 10 mL/h r Rate/Dose Verify 01/04/2012 6:00 PM EST 50 mL/hr 50 mL/h r sodium chloride 0.9% infusion 10-30 mL/hr, Intravenous, DAILY PRN, Starting on Wed01/04/12 at 1621, Until Wed01/05/12 at 1854 Rate/Dose Verify 01/05/2012 11:00 AM EST 10 mL/hr 10 mL/hr Rate/Dose Verify 01/05/2012 4:00 AM EST 10 mL/hr 10 mL/h r Rate/Dose Verify 01/05/2012 2:00 AM EST 10 mL/hr 10 mL/h r venlafaxine (EFFEXOR) tablet 75 mg 75 mg, Oral, DAILY, First dose on Wed01/06/12 at 0900, Until Discontinued, Routine Given 01/07/2012 8:01 PM EST 75 mg Given 01/06/2012 8:10 PM EST 75 mg Given 01/05/2012 8:22 PM EST 75 mg documented in this encounter Active and Recently Administered Medications Times are shown in EST. Scheduled Medication Order 01/06/2012 01/07/2012 01/08/2012 acetaminophen (TYLENOL) tablet 1,000 mg 1,000 mg, Oral, EVERY 6 HOURS SCHEDULED, First dose on Wed01/04/12 at 1800, Until Discontinued, For pain when taking by mouth , Routine 0001 (Given - Provider: Hermila Dumas RN)0612 (Given - Provider: Hermila Dumas RN)1200 (Given - Provider: Michelle Chong, DAVID)1800 (Given - Provider: Michelle Chong RN) 0000 (Given - Provider: Hermila Dumas RN)0600 (Given - Provider: Hermila Dumas RN)1200 (Given - Provider: Michelle Chong RN)1800 (Given - Provider: Michelle Chong RN)2351 (Given - Provider: Hermila Dumas RN) 0600 (Given - Provider: Hermila Dumas RN)1200 (Given - Provider: Sangita Self RN) aspirin chewable tablet 81 mg(Linked Group 1) 81 mg, Oral, DAILY, First dose on Wed01/05/12 at 0900, Until Discontinued, Start on post-op day 1 in the AM., Routine 0900 (Given - Provider: Michelle Chong RN) 0900 (Given - Provider: Michelle Chong RN) 0900 (Given - Provider: Sangita Self RN) esomeprazole (NEXIUM) capsule 40 mg (CANCELED)(Linked Group 2) 40 mg, Oral, DAILY, First dose on Wed01/05/12 at 0900, Until Discontinued, If unable to take PO, may give IV, Routine 0900 (Given - Provider: Michelle Chong RN) 0900 (Given - Provider: Michelle Chong RN) 0900 (Given - Provider: Sangita Self RN) furosemide (LASIX) injection 20 mg (CANCELED) 20 mg, Intravenous, 2 TIMES DAILY, First dose on Wed01/05/12 at 1200, Until Discontinued 0900 (Given - Provider: Michelle Chong RN)1700 (Given - Provider: Michelle Chong RN) 0900 (Given - Provider: Michelle Chong RN) furosemide (LASIX) injection 20 mg (COMPLETED) 20 mg, Intravenous, ONCE, 1 dose, On Wed01/07/12 at 1015 1015 (Given - Provider: Michelle Chong RN) furosemide (LASIX) injection 40 mg (CANCELED) 40 mg, Intravenous, 2 TIMES DAILY, First dose (after last modification) on Angelita 01/07/12 at 1700, Until Discontinued 1700 (Given - Provider: Michelle Chong RN) 1000 (Given - Provider: Sangita Self RN) insulin aspart (NOVOLOG) PEN injection 1-4 Units (CANCELED) 1-4 Units, Subcutaneous, 4 TIMES DAILY BEFORE MEALS & NIGHTLY, First dose on Wed01/06/12 at 1215, Until Discontinued, CORRECTION BOLUS Sensitive to insulin lean patient or total daily dose of all insulin needed to achieve glycemic control less than 30 units BG 140 - 160 Give 1 unit BG 161 - 200 Give 2 units BG 201 - 240 Give 3 units BG greater than 240, give 4 units every 2 hours until BG less than 240 (no more than three times) & call for new basal insulin orders , Routine 1215 (Given - Provider: Michelle Chong RN)1630 (Given - Provider: Michelle Chong RN)2100 (Not Given - Provider: Hermila Dumas RN - Reason: Order parameters not met) 0730 (Not Given - Provider: Michelle Chong RN - Reason: Order parameters not met)1130 (Not Given - Provider: Michelle Chong RN - Reason: Order parameters not met)1630 (Not Given - Provider: Michelle Chong RN - Reason: Patient not available)2100 (Given - Provider: Hermila Dumas RN) 0730 (Given - Provider: Sangita Self RN)1130 (Not Given - Provider: Sangita Self RN - Reason: Order parameters not met) magnesium hydroxide (MILK OF MAGNESIA) oral suspension 10 mL (CANCELED) 10 mL, Oral, DAILY, First dose on Wed01/06/12 at 0900, Until Discontinued, Post-op day 2. Do not use with renal insufficiency., Routine 0900 (Given - Provider: Michelle Chong RN) 0900 (Given - Provider: Michelle Chong RN) 0900 (Not Given - Provider: Sangita Self RN - Reason: Patient/family refused) metFORMIN (GLUCOPHAGE) tablet 500 mg 500 mg, Oral, DAILY WITH BREAKFAST, First dose on Wed01/08/12 at 1100, Until Discontinued, Routine 1100 (Given - Provider: Sangita Self RN) metoprolol tartrate (LOPRESSOR) tablet 25 mg 25 mg, Oral, EVERY 12 HOURS SCHEDULED (2 times per day), First dose on Wed01/05/12 at 1200, Until Discontinued, Routine 0900 (Given - Provider: Michelle Chong RN)2008 (Given - Provider: Hermila uDmas RN) 09 (Given - Provider: Michelle Chong RN)2000 (Given - Provider: Hermila Dumas RN) 899 (Given - Provider: Sangita Self RN) potassium chloride (K-DUR) tablet 20 mEq (CANCELED) 20 mEq, Oral, 2 TIMES DAILY, First dose on Wed01/05/12 at 2100, Until Discontinued, Routine 899 (Given - Provider: Michelle Chong RN)2008 (Given - Provider: Hermila Dumas RN) 899 (Given - Provider: Michelle Chong RN) potassium chloride (K-DUR) tablet 40 mEq (COMPLETED) 40 mEq, Oral, ONCE, 1 dose, On Wed01/06/12 at 1700, Routine 1700 (Given - Provider: Michelle Chong RN) potassium chloride (K-DUR) tablet 40 mEq 40 mEq, Oral, 2 TIMES DAILY, First dose (after last modification) on Wed01/07/12 at 2100, Until Discontinued, Routine 2004 (Given - Provider: Hermila Dumas RN) 899 (Given - Provider: Sangita Self RN) protriptyline (VIVACTIL) tablet 10 mg (CANCELED) 10 mg, Oral, 3 TIMES DAILY, First dose on Wed01/05/12 at 1100, Until Discontinued, Patient using own, Routine 899 (Given - Provider: Michelle Chong RN)1500 (Given - Provider: Michelle Chong RN)2008 (Given - Provider: Hermila Dumas RN) 899 (Given - Provider: Michelle Chong RN)1500 (Given - Provider: Michelle Chong RN)2000 (Given - Provider: Hermila Dumas RN) 899 (Given - Provider: Sangita Self RN) senna-docusate (PERICOLACE) 8.6-50 mg per tablet 2 tablet 2 tablet, Oral, DAILY, First dose on Wed01/05/12 at 2100, Until Discontinued, Post-op day 1, Routine 2008 (Given - Provider: Hermila Dumas RN) 2000 (Given - Provider: Hermila Dumas RN) sertraline (ZOLOFT) tablet 50 mg (CANCELED) 50 mg, Oral, DAILY, First dose on Wed01/05/12 at 1015, Until Discontinued, Routine 2009 (Given - Provider: Hermila Dumas RN) 2000 (Given - Provider: Hermila Dumas RN) simvastatin (ZOCOR) tablet 20 mg (CANCELED) 20 mg, Oral, EVERY EVENING, First dose on Wed01/05/12 at 1700, Until Discontinued, Routine 1700 (Given - Provider: Michelle Chong RN) 1700 (Given - Provider: Michelle Chong RN) sodium chloride 0.9 % flush 5 mL (CANCELED) 5 mL, Intravenous, EVERY 8 HOURS, First dose on Wed01/05/12 at 1915, Until Discontinued 031 (Given - Provider: Hermila Dumas RN)1115 (Given - Provider: Michelle Chong RN)2009 (Given - Provider: Hermila Dumas RN) 0315 (Given - Provider: Hermila Dumas RN)1115 (Given - Provider: Michelle Chong RN)2000 (Given - Provider: Hermila Dumas RN) 0315 (Given - Provider: Hermila Dumas RN)1115 (Given - Provider: Sangita Self RN) venlafaxine (EFFEXOR) tablet 75 mg (CANCELED) 75 mg, Oral, DAILY, First dose on Wed01/06/12 at 0900, Until Discontinued, Routine 2009 (Given - Provider: Hermila Dumas RN) 2000 (Given - Provider: Hermlia Dumas RN) PRN Medication Order 01/06/2012 01/07/2012 01/08/2012 bisacodyl (DULCOLAX) suppository 10 mg (CANCELED) 10 mg, Rectal, DAILY PRN, Starting on Wed01/07/12 at 0000, Until Wed01/08/12 at 1659, Constipation, Starting post-op day 3., Routine 0944 (Given - Provider: Michelle Chong RN) calcium carbonate (TUMS) chewable tablet 500 mg (CANCELED) 500 mg, Oral, DAILY PRN, Starting on Wed01/06/12 at 0700, Until Wed01/08/12 at 1659, Heartburn, Routine 0707 (Given - Provider: Hermila Dumas RN) HYDROmorphone (DILAUDID) tablet 2-6 mg 2-6 mg, Oral, EVERY 3 HOURS PRN, Starting on Wed01/05/12 at 2237, Until Wed01/08/12 at 1659, Pain, For pain when taking by mouth, Routine 0001 (Given - Provider: Hermila Dumas RN)0305 (Given - Provider: Hermila Dumas RN - Comment: sternal)0610 (Given - Provider: Hermila Dumas RN)0920 (Given - Provider: Michelle Chong RN)1313 (Given - Provider: Annabella Gonzales)1725 (Given - Provider: Michelle Chong RN)2039 (Given - Provider: Hermila Dumas RN)2359 (Given - Provider: Hermila Dumas RN) 0300 (Given - Provider: Hermila Dumas RN)0605 (Given - Provider: Hermila Dumas RN)0916 (Given - Provider: Michelle Chong RN)1623 (Given - Provider: Michelle Chong RN)2000 (Given - Provider: Hermila Dumas RN)2352 (Given - Provider: Hermila Dumas RN) 0100 (Given - Provider: Hermila Dumas RN)0325 (Given - Provider: Hermila Dumas RN)0416 (Given - Provider: Hermila Dumas RN)0526 (Given - Provider: Hermila Dumas RN)0630 (Given - Provider: Hermila Dumas RN)0850 (Given - Provider: Sangita Self RN)1230 (Given - Provider: Sangita Self RN) Linked Groups Order Group 1: aspirin chewable tablet 81 mgJump to med 81 mg, Oral, DAILY, First dose on Wed01/05/12 at 0900, Until Discontinued, Start on post-op day 1 in the AM., Routine Or aspirin suppository 300 mg (CANCELED) 300 mg, Rectal, DAILY, First dose on Wed01/05/12 at 0900, Until Discontinued, Start on post-op day 1 in the AM, Routine Group 2: esomeprazole (NEXIUM) capsule 40 mg (CANCELED)Jump to med 40 mg, Oral, DAILY, First dose on Wed01/05/12 at 0900, Until Discontinued, If unable to take PO, may give IV, Routine Or esomeprazole (NEXIUM) injection 40 mg (CANCELED) 40 mg, Intravenous, DAILY, First dose on Wed01/05/12 at 0900, Until Discontinued, Routine documented in this encounter Care Teams [facility]in[facility] Tender Relationship Specialty Start Date End Date Patric Al MD PCP - General 12/29/11 02/26/19 documented as of this encounter
--- OUTSIDE RECORDS SUMMARY | 2024-07-14 14:38 | XMS_ITS | Encounter Summary ---
Author Organization [facility] Address [facility] [place] [address] Care Team Providers Care Promotion Manager Name Role Phone Guanako Gusman MD Primary Care Provider [phone] Encounter Details Date Type Department Care Team (Late st Contact Info) Description 01/01/2012 11:59 PM EST Anesthesia Event [place] [id number] Reny Melchor MD [facility] [place] [address] Anesthesia Record Procedure Summary Procedure Name Responsible Anesthesiologist Anesthesia Start Time Anesthesia Stop Time @CABG; 3 VENOUS GRAFTS & ARTERIAL GRAFT (WRVU 10.49) Events No events on file. Meds * Agents No agents on file. * Blood No blood administrations on file. Lines, Drains, and Airways No LDAs on file. documented in this encounter Social History Tobacco Use Types Packs/Day Years Used Date Smoking Tobacco: Every Day Cigarettes 1 25 Alcohol Use Standard Drinks/Week Comments No 0 (1 standard drink = 0.6 oz pur e alcohol) Sex and Gender Information Value Date Recorded Sex Assigned at Not on file Gender Identity Not on file Sexual Orientation Not on file documented as of this encounter OR Notes * Anesthesia Preprocedure Evaluation - Reny Melchor - 12/31/2011 5:51 PM EST Anesthesia Evaluation No hx of anesthetic complications Airway Mallampati: II TM distance: >3 FB Neck ROM: full Dental Comment: No loose teeth, multiple chipped teeth Pulmonary (+) recent URI, (-) pneumonia, COPD and asthma ROS comment: +TOB Cardiovascular (+) hypertension, past SD, CAD, angina, WHITTAKER, (-) CHF ROS comment: Echo 12/30/11: 1. The left ventricular chamber [...] ST or T wave abnormalities Cardiac Cath 12/30/11: Diffuse disease throughout the coronaries with acute stenosis of the LAD (85%), CFX (70%), and RCA (65%) Neuro/Psych (+) psychiatric history GI/Hepatic/Renal (+) GERD, (-) hiatal hernia, liver disease and renal disease Endo/Other (-) Type I DM, Type II DM and clotting problem Abdominal Anesthesia Plan ASA 3 General with intravenous induction 37M with 3 vessel CAD scheduled for CABG Anesthetic plan and risks discussed with patient. Use of blood products discussed with patient. Plan discussed with attending. documented in this encounter Plan of Treatment Not on file documented as of this encounter Visit Diagnoses Not on filedocumented in this encounter Care Teams Promotion Manager Relationship Specialty Start Date End Date Guanako Gusman MD PCP - General 12/29/11 02/26/19 documented as of this encounter
--- OUTSIDE RECORDS SUMMARY | 2024-07-14 14:38 | XMS_ITS | Encounter Summary ---
Author Organization Formerly [facility], 1928–1983 Address [facility] [place] [address] Care Team Providers Care School Aide Name Role Phone Patric Al MD Primary Care Provider [phone] Encounter Details Date Type Department Care Team (Late st Contact Info) Description 01/04/2012 12:18 PM EST - 01/04/2012 4:46 PM EST Surgery [place] [phone] Inna Tovar MD [facility] DR CARDIOTHORACIC [place] [address] ENDOSCOPIC HARVEST VEIN(S) FOR CABG (WRVU 0.31) Social History Tobacco Use Types Packs/Day Years [...] encounter Discharge Instructions * Discharge Instructions* Darcie Lange APRN - 01/08/2012 12:11 PM EST Geovanna Dixon Jr. 1975 [id number] New Diagnosis of Pre-Diabetes For discharge should [...] Some considerations about using metformin in Prediabetics: [place] Diabetes Prevention Program (DPP) as well as other minor studies and meta-analyses has convincingly demonstrated the efficacy of metformin in this patient group [pre-diabetics]. In addition, results of the 10 year DPP follow up have recently been published, demonstrating the senior living safety and sustainability of metformin treatment benefits [...] - will be starting Cardiac rehab at [facility], encouraged to increase physical activity as advised by cardiologists Weight Loss - A 7% weight loss could significantly improve his BG control Tobacco cessation - There is growing evidence that cigarette smokers are more prone than the general population to develop T2DM. Increase in insulin resistance with tobacco use. Darcie Lange APRN [facility] Endocrinology Diabetes Management [phone] * Patient Instructions* Ricky Graham PA - [...] Anne Tovar and/or the Cardiothoracic Surgery Physician Culvert Installer Team may be reached at . Activity [...] Dr. Inna Tovar. You may use a [place] Track or treadmill but avoid any pulling [...] friends, go to a movie, go to christianity, etc. Heavy activities: No hunting, skiing, jogging, [...] would be to continue to go [place]. He has quit this way before and [...] only 10% of those who quit [place] are able to be successful. The calculated savings once he quits smoking would be $54 a week, $234 a month, and $2803 a year. If he quits now his savings will be $28,030 in 10 years. The patient was provided with a [facility] Smoking Cessation packet and the contents have [...] given to patient. Discharge summary faxed to [facility] and receipt confirmed via phone. Patient [...] outpatient basis Equipment needs: none ADEBAYO MCGARRY, PROJECT CREW WORKER Pager: [phone] Physical Therapy Rehabilitation Department * Michelle Chong [...] services. Patient would like VNA services through [facility] [employer] [facility]. PHONE: [phone] FAX: [phone]. Referral made via E-discharge. Please see home care orders that must be included in discharge summary for VN services to start. Patient has glucometer and supplies at bedside. Pt. Denies any further needs from [facility]. Pt. Gets scripts through [place] Medicaid with co-pay. He denies any concerns related to co-pay. * Darcie Lange, PHOTO PRODUCER - 01/07/2012 9:57 AM EST Geovanna Dixon Jr. 1975 [id number] PATRIC AL MD Follow Up Diabetes Consult [...] 0112 01/05/12 2352 01/05/12 2254 01/05/12 2151 01/05/12 2050 ??? POCGLU 116 127 131 160 168 [...] Some considerations about using metformin in Prediabetics: [place] Diabetes Prevention Program (DPP) as well as other minor studies and meta-analyses has convincingly demonstrated the efficacy of metformin in this patient group [pre-diabetics]. In addition, results of the 10 year DPP follow up have recently been published, demonstrating the senior living safety and sustainability of metformin treatment benefits [...] - will be starting Cardiac rehab at [facility], encouraged to increase physical activity as [...] send home with glucometer - reviewed with Mr. Dixon and pending home prescriptions for new freestyle lite Continue with QID sensitive Novolog correction only Darcie Lange APRN [facility] Endocrinology Diabetes Management [phone] Pager [phone] This case was discussed with Dr. Christina Brody. 25 min time spent in patient care with 20 counseling, seeing patient, changing orders and discussion with the patient and the primary team as well as nursing. * Inna Tovar MD - 01/07/2012 9:39 AM EST Cardiac Surgery Progress Note: ID: [id number] 36/M POD #[address] Tovar [...] results found for this basename: phart, po2art, djj5jql Assessment/Plan: Pathway. Neuro: ambulating on own per [...] Plan D/C tomorrow or Wednesday. * Nam Trinidad, PT - 01/07/2012 12:00 AM EST Physical [...] home. (ie take out the trash or picker / packer his child) Objective:Pt was seen today for [...] interventions: 30 minutes NAM TRINIDAD, PT Pager: [phone] Physical Therapy Rehabilitation Department * Vibha Martines APRN - 01/06/2012 4:25 PM EST TOBACCO TREATMENT NOTE 01/06/2012 Name: Geovanna Dixon Jr. Date of : 1975 Patient Active Problem [...] [facility] ??? Cabg, artery-vein, single 01/04/2012 @CABG, VENOUS & ARTERIAL GRAFT;SINGLE VEIN GRAFT performed by INNA TOVAR at [facility] Outpatient prescriptions marked as [...] yes Date: 12/29/11 Why then: Admission to [facility] What will be different this time: Just [...] scale of 0(Not at all important)-10(Highest importantance): 10/10 NICOTINE DEPENDENCE Fagerstrom Score: 5 0 Points 1Points 2 Points 3 Points Score 1.How soon after you wake do you smoke your first cigarette? After 60 minutes 31-60 minutes minutes 6-30 minutes Within 5 minutes 3 2. Do you find it difficult to refrain from smoking in places where it is forbidden ex christianity No Yes 0 3. Which cigarette would [...] would be to continue to go [place]. He has quit this way before and it lasted several years, so he has a history of being successful with this method. He also pointed out that his father and an uncle quit (for now over 10 years) by going [place]. I told him that it is difficult to recommend a quit method that has a 90% failure rate, but that said, it is his choice and that I would provide him with a toolkit of information so that he will be as knowledgeable as possible about nicotineaddiction and how to stay quit. And we do know that 10% of those who quit [place] are able to be successful. I calculated and shared with him that his savings once he quits smoking would be $54 a week, $234 amonth, and $2803 a year. If he quits now his savings will be $28,030 in 10 years. The patient has also been provided with a [facility] Smoking Cessation packet and the contents have been reviewed with him. The patient now has the Quit line number for [place] and has also been encouraged to use this if needed for support. In addition he was in agreement with a referral to the [place] Quitnetworkand I have FAXed a referral to [...] Nutrition Intervention: Hospital Day 9 Diet Order: [facility] Appetite: fair Food allergies: none Chewing/Swallowing difficulty: none Height: (cm) 180.3 Weight: (kg) 127.9 01/06/12 Wt hx: (kg) 124.5 12/29/11 BMI: 38.4 Education: [facility] dietary guidelines. Tips To Better Food Intake (Protein) dietary guidelines. Verbalized good understanding. Education material, with means of contact provided. Assessment: Patient verbalized good understanding of protein needs for healing as well as [facility] Heart Healthy guidelines. I have added high protein snacks between meals and CIB shakes to meal trays for extra protein/nutrition. Nutrition Plan: Diet: [facility] Recommend Daily Multi Vitamins. Added high protein snacks. CIB w/skim milk shakes three times per day. Encourage good po intake. Monitor weight. Support and encouragement provided. Nutrition services to follow weekly thru hospital course unless consulted in the interim. ACOSTA SMALL * Inna Tovar MD - 01/06/2012 1:50 PM EST Cardiac Surgery In Patient Progress Note Patient Name: Geovanna Dixon Jr. : [id number] MR#: [id number] Admitted: 12/29/2011 Hospital Day 8 days Problem [...] Q8H ??? acetaminophen 1,000 mg Oral Q6H OJSE ??? DISCONTD: insulin aspart 3-6 Units Subcutaneous TID WC ??? DISCONTD: chlorhexidine 15 mL Oral Q12H JOSE ??? DISCONTD: esomeprazole 40 mg Intravenous Daily ??? DISCONTD: aspirin 300 mg Rectal Daily Continuous Infusions: ??? sodium chloride 0.9% Stopped (01/06/12 0300) ??? DISCONTD: insulin regular drip 0 Units/hr (01/05/12 2058) ??? DISCONTD: sodium chloride 0.9% Stopped (01/05/12 [...] Subjective and 24 hr events: -[facility] - No BM - Pain about a [...] DM Dispo: [facility]. Physical Therapy. On pathway * Taylor Hamlin, RN - 01/06/2012 10:11 AM EST [facility] CARDIAC REHABILITATION Geovanna Dixon Jr. was seen today regarding participation in outpatient Phase 2 Cardiac Rehabilitation at [facility] . A referral will be sent to this program. The patient was given contact information and should expect to be contacted by the program within 1-2 weeks after discharge from [facility]. * Kareen Mendoza, PT - 01/05/2012 3:59 PM EST Physical [...] [facility] ??? Cabg, artery-vein, single 01/04/2012 @CABG, VENOUS & ARTERIAL GRAFT;SINGLE VEIN GRAFT performed by INNA TOVAR at [facility] Social History: Patient lives [...] minutes brief evaluation KAREEN MENDOZA, PT Pager: [phone] Physical Therapy Rehabilitation Department * Camille Angulo [...] A: medical plan still evolving. P: This group underwriter or colleague from the Office of Care [...] FULL CODE Paola Akers PGY 1 Pager [phone] Attending Addendum: I spoke with the patient and his family briefly this am. I agree with the principal findings. The impression and plan incorporate my input. No contraindication to surgery today. Sarthak Pollard MD [facility] pager [phone] * Sarthak Pollard MD - 01/03/2012 11:08 [...] 101 100 -- -- ??? CO2 25 25 27 -- -- ??? BUN 10 [...] risk of aggravating CAD. Sarthak Pollard MD [facility] pager [phone] * Bal John MD - 01/02/2012 3:10 PM EST S: Patient reports feeling well. Sore throat improving. Swollen glands decreasing. Denies SOB, denies other pain. O: Temp: [36.3 ??C (97.3 ??F)-37 ??C (98.6 ??F)] Heart Rate: [70-98] Resp: [16] BP: (104-157)/(64-106) Gen: NAD ENT: no tonsillar exudates, erythematous OP Neck: No LAD Labs: WBC 10.1 Cr 0.7 Micro: Blood 12/30: NGTD Throat Cx: + for GAS Assessment: [...] EST CARDIOLOGY INPATIENT PROGRESS NOTE Geovanna Dixon SUMMARY: Geovanna Dixon Jr. is a 36 [...] 0915) ??? sodium chloride 0.9% 30 mL/hr (12/30/11954) ??? DISCONTD: heparin 2,850 Units/hr (01/01/12 0457) [...] Cristina Ambriz MD PGY1, Internal Medicine Pager [phone] 01/02/2012 Attending Addendum: I have interviewed and examined the patient. I agree with the principal findings. The impression and plan incorporate my input. As above, doing well. Will keep on heparin until surgery. No angina, HF, bleeding, or evidence of HIT. Sarthak Pollard MD [facility] pager [phone] * Inna Tovar MD - 01/01/2012 3:17 PM EST Please see Dr. Major's note from 12/31/11 for full details. Briefly, Mr. Dixon developed unstable angina and ruled in for VT. Cath shows severe 3 vessel disease. Echo shows EF of 55%. It was decided that he would be best served by CABG. His surgery was scheduled for today, but could not be done. We plan surgery 2/27/12. We had a long discussion regarding the [...] 113/73 mmHg 36.3 ??C (97.3 ??F) - 18 98 % - Physical Exam: Constitutional: [...] chloride 0.9% 30 mL/hr (12/30/11 0955) ??? heparin 2,850 Units/hr (01/01/12 0457) ??? [...] mg BID Paola Akers PGY 1 Pager [phone] Attending Addendum: I have interviewed and examined the patient. I agree with the principal findings. The impression and plan incorporate my input. He is disappointed that his surgery has been postponed until Wednesday butunderstands. He remains cp free. I've reviewed his angiograms and believe he needs to stay on heparin until surgery. All questions answered. Sarthak Pollard MD [facility] pager [phone] * Andi Rene MD - 12/31/2011 5:20 PM EST CARDIOLOGY INPATIENT PROGRESS NOTE Geovanna Viet Zack Jr. SUMMARY: Geovanna Dixon JrFlorencio is a 36 y.o. male with: NSTEMI, fevers, cath showed severe 3 vessel disease, now being evaluated for CABG Patient Active Problem List Diagnoses Code ??? Chest pain 786.50F ??? HTN (hypertension) 401.9AF ??? Hyperlipidemia 272.4S ??? Depression 311L ??? Narcolepsy 347.00B 24 HOUR EVENTS: - Admitted yesterday for chest pain as a transfer from [facility] - Cardiac cath yesterday showed significant [...] ??F) - 118 18 93 % - 12/30/112006 119/73 mmHg 36.9 ??C (98.4 ??F) Oral [...] - GI: Famotidine 20 mg BID Paola Cobosstephanie PGY 1 Pager [phone] Cardiology Attending Progress Note Addendum: I have [...] would like to attend cardiac rehab at [facility] in [facility]. We will meet him again after [...] headache was relieved with in 1 hour * Gracie Nguyen RN - 12/29/2011 11:20 PM EST Patient c/o left hand/arm pain & 10/10 headache. STAT EKG obtained. VSS. Patient states pain subsided on it's own. Dr. Ceron notified, will be by to visit patient. Tylenol given for headache.Will continue to monitor. Call saucedo within reach, family at bedside. 1945) Patient off unit to XRAY with transpo & CONCRETE BLOCK LAYER. documented in this encounter H&P Notes * Jeannine Pichardo RN - 01/05/2012 12:44 PM EST Patient being transferred to [facility] , report to [facility]. * Inna Tovar [...] alleviate the pain. He eventually presented to [facility] on Wednesday wherehe had elevated troponins (0.21). [...] exploratory laparotomy w/o bowel resection ([facility]) Medications prior to admission that will be [...] Lives on social security in house in [facility] with two children (18 and 4, and one step child) Active pack per day smoker (27pack year history) No etoh No drugs Enjoys riding motorcycles and hunting He is NOT a restorationist FHx: Heart disease on both sides of the family Father's side with multiple uncles with VT's, one at age of 40 Mother's side with uncle at age 50 from VT Diabetes in mother ROS: Positive headache, nausea [...] 13.2 12/29/2011 PTT 31 12/30/2011 Troponins at [facility]: 0.05-->0.03 Imaging: Echo 12/30/11: 1. The left [...] loss were emphasized as they relate to senior living patency of his grafts. He should receive smoking cessation counseling donya. One post op consideration will be vent wean and respiratory status given likely underlying CAMILLA and his known narcolepsy. Pre op orders written, heparin gtt to stop admission nurse coordinator to OR. Pt seen and interviewed with [...] +active 25 pack year smoker comes to [facility] from [facility] for evaluation of intermittent CP since [...] intermittent chest pressure at OSH ED. Mr. Dixon that he spends most of his time [...] history (both paternal grandparents passing away from [facility] and paternal aunts/uncles with histories of CAD). [...] FULL Provider: REMIGIO CERON MD Pager #: [phone] documented in this encounter Procedure Notes * Provider, Scanning - 01/10/2012 1:46 PM ESTAssociated Order(s): SCAN DOC: SUGAR PRESSER * Provider, Scanning - 01/10/2012 1:46 PM ESTAssociated Order(s): SCAN DOC: LAB * Provider, Scanning - 01/10/2012 1:46 PM ESTAssociated Order(s): SCAN DOC: CARDIAC CATH documented in this encounter Nursing Notes * Akanksha Sampson RN - 01/04/2012 1:39 PM EST Intraoperative [...] EST * Consult Note - Darcie Lange, PHOTO PRODUCER - 01/06/2012 3:45 PM EST Geovanna Dxion Jr. 1975 [id number] Inpatient Endocrinology Glucose Management Consult Date of Consultation: 01/06/2012 Place of Consultation: [facility] Consult Requested by: Dr. Tovar, [place] Surgery Reason for Consultation: Geovanna Dixon Jr. is a 36 y.o. male who was admitted on 12/29/2011 for the diagnosis of CAD now s/p CABG x2 with Dr. Tovar, POD #2. We are asked to see him to assist with diabetes management and to provide a review of his senior living diabetes plan. Diabetes History: Geovanna Dixon Jr. has NO history of diabetes, + for a family history of diabetes on mother's side and some on father's. Family history is also very significant for coronary artery disease. He stated that he has been tested in the past for diabetes but told that he does have diabetes, uncertain on A1C #. As per ED labs last A1C = 6.1% which suggests [...] Diabetes Care: Medications: None Monitoring: None Diet: [facility] Healthy No Known Allergies Past Medical History: [...] considerations about using metformin in Prediabetics: ?? [place] Diabetes Prevention Program (DPP) as well as other minor studies and meta-analyses hasconvincingly demonstrated the efficacy of metformin in this patient group [pre-diabetics]. In addition, results of the 10 year DPP follow up have recently been published, demonstrating the rat exterminator safety and sustainability of metformin treatment benefits [...] - will be starting Cardiac rehab at [facility], encouraged to increase physical activity as [...] metformin 500 mg QD Darcie Lange APRN [facility] Endocrinology Diabetes Management [phone] Pager [phone] This case was discussed with Dr. Christina [...] urine output * Plan of Care - Jeannine Pichardo RN - 01/04/2012 5:36 PM EST Problem: [...] alleviate the pain. He eventually presented to [facility] on Wednesday where he had elevated troponins [...] postoperative effusion or hematoma. Hospital Course: Geovanna Dixon was admitted to [facility] on 12/29/2011 to the cardiologyservice for chest [...] Medications: Geovanna Dixon Jr. Home Medication Instructions CRAIG:[id number] Printed on:01/08/12 2582 Medication Information simvastatin (ZOCOR) 20 mg tablet [...] Anne Tovar and/or the Cardiothoracic Surgery Physician Culvert Installer Team may be reached at . Activity [...] Dr. Inna Tovar. You may use a [place] Track or treadmill but avoid any pulling [...] friends, go to a movie, go to christianity, etc. Heavy activities: No hunting, skiing, jogging, [...] would be to continue to go [place]. He has quit this way before and [...] only 10% of those who quit [place] are able to be successful. The calculated savings once he quits smoking would be $54 a week, $234 a month, and $2803 a year. If he quits now his savings will be $28,030 in 10 years. The patient was provided with a [facility] Smoking Cessation packet and the contents have been reviewed with him. The patient now has the Quit line number for [place] and has also been encouraged to use this ifneeded for support. In addition he was in agreement with a referral to the [place] Quitnetwork and a referral was faxed to [...] Some considerations about using metformin in Prediabetics: [place] Diabetes Prevention Program (DPP) as well as other minor studies and meta-analyses has convincingly demonstrated the efficacy of metformin in this patient group [pre-diabetics]. In addition, results of the 10 year DPP follow up have recently been published, demonstrating the senior living safety and sustainability of metformin treatment benefits [...] - will be starting Cardiac rehab at [facility], encouraged to increase physical activity as advised by cardiologists Weight Loss - A 7% weight loss could significantly improve his BG control Tobacco cessation - There is growing evidence that cigarette smokers are more prone than the general population to develop T2DM. Increase in insulin resistance with tobacco use. Darcie Lange APRN [facility] Endocrinology Diabetes Management [phone] Medications: Take only those medications listed on [...] should resume a low fat, low cholesterol, [place] Heart Association Diet. Driving: No driving for [...] be mailed to you. Cardiac Rehabilitation: Geovanna Dixon Jr. was seen regarding participation in outpatient Phase 2 Cardiac Rehabilitation at [facility] . A referral will be sent to this program. He was given contact information and shouldexpect to be contacted by the program within 1-2 weeks after discharge from [facility]. Arrangements for VNA/home care: PATIENT'S LOCATION: Geovanna Dixon Jr. [address] [place] [address] There is no home phone number on file. Telephone Information: In discussion with the attending physician, it is certified that this patient is under their care and that they, or a nurse practitioner, clinical nurse specialist or physician's operator assistant i cementing who is working directly with them, had [...] for services as follows: HOME HEALTH AGENCY: [facility]. PHONE: [phone] FAX: [phone] RN orders: Cardiopulmonary assessment, incisional assessment, assess [...] issues please call the Cardiac SurgeryOffice at [phone] FOR MEDICARE ONLY: (please delete this section [...] nurse practitioner, clinical nurse specialist or physician's operator assistant i cementing who is working directly with them, had [...] from this patient's PCP: PATRIC AL MD [phone] All VNA agencies which cover the area of patient's residence have been reviewed, either verbally feli writing, and patient/family have chosen the indicated home health care agency for home services. Comments: Questions: Responses: Agency name and contact information [facility] Patient location post discharge home What services are requested Start date 01/10/2012 Responsible MD post discharge contact info PCP RN to remove chest tube sutures on or after 01/13/12. Signed: Ricky Graham PA-C [facility] Section of Cardiothoracic Surgery Date: 01/08/12 CC: MD CARLOS MENDE[facility] EMERGENCY DEPT [address] [place] [address] [place] [address] * Op Note - Inna Tovar MD - 01/04/2012 3:55 PM EST [facility] Operative Note Patient Name: Geovanna Dixon Jr. : [id number] MR#: [id number] Case Date: 01/04/2012 Surgeon: Surgeon(s) and Role: [...] enlarged. There was diffuse disease in all igiugig vessels. The OFELIA and vein were of excellent quality. The lungs had early emphysematous changes. Procedure Details: The patient was brought to the operating room and given general anesthesia. A [place]-Haley catheter, radial arterial line, and Mendez catheter [...] fter inspection for adequate hemostasis, two #28 Armenian chest tubes were placed and brought out [...] Note Patient Name: Geovanna Dixon Jr. : [id number] MR#: [id number] Case Date: 01/04/2012 Surgeon: Surgeon(s) and Role: [...] Htn, Hld and nicotine dependence transferred from [facility] for evaluation of left sided CP , [...] drainage . 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 No recent out door activities or [...] pharyngitis on exam, with recent exposure to infantgranddaughter who had pneumonia. The patient denies rigors, cough, myalgia but admits to headache which he associates with reducing his caffeine intake recently. He has not had flu vaccine. Other than his throat there are no focal signs suggesting a source of infection. It's possible he has strep throat, although viral infection is probably more likely. (Leukocytosis may be r/t stress of VT.) Bacteremia as a complication of his cath, [...] EST LAB SCAN 01/10/2012 1:46 PM EST SUGAR PRESSER SCAN 01/10/2012 1:46 PM EST CARDIAC CATH [...] 8:00 AM EST DIFFERENTIAL, AUTOMATED Routine 01/07/20 4:11 AM EST CBC (WITH DIFF) Routine [...] XR CHEST PA AND LATERAL STAT 01/01/20 12 11:30 AM EST BMP W/FASTING GLUCOSE Routine [...] 12/30/2011 4:25 PM EST TYPE AND SCREEN ([facility]/BABITA) Routine 12/30/2011 4:14 PM EST CARDIAC ENZYMES ([facility]/CGP) STAT 12/30/2011 2:08 PM EST APTT STAT 12/30/2011 2:08 PM EST HIV SCREEN, 4TH GENERATION ([facility]/CGP/APD/NLH) Routine 12/30/2011 10:18 AM EST ECHOCARDIOGRAM TRANSTHORACIC Routine 12/30/2011 9:47 AM EST Chest pain RAPID DRUG SCREEN W/O CONFIRMATION, URINE Routine 12/30/2011 9:32 AM EST URINALYSIS WITH REFLEX CULTURE Routine 12/30/2011 9:32 AM EST URINE CULTURE Routine 12/30/2011 9:31 AM EST DIFFERENTIAL, AUTOMATED Routine 12/30/19 12 7:07 AM EST CBC (WITH DIFF) Routine 12/30/2011 7:07 AM EST HEMOGLOBIN A1C Routine 12/30/2011 7:07 AM EST CARDIAC ENZYMES ([facility]/CGP) STAT 12/30/2011 5:45 AM EST APTT STAT [...] 12/29/19 12 11:29 PM EST CARDIAC ENZYMES ([facility]/CGP) STAT 12/29/2011 11:29 PM EST APTT STAT [...] (Bezet) 453 ms MUSE SYSTEM Calculated P [place] 41 degrees MUSE SYSTEM Calculated R [place] 25 degrees MUSE SYSTEM Calculated T [place] 74 degrees MUSE SYSTEM INTERPRETATION Sinus tachycardia Inferior infarct , age undetermined Nonspecific T wave abnormality Abnormal ECG When compared with ECG of 04-JAN-2012 16:26, Inferior infarct is now Present Inverted T waves have replaced nonspecific T wave abnormality in Anterior leads Confirmed by MD DELMIS, SARTHAK ([id number]) on 02/09/2012 4:00:55 PM MUSE SYSTEM 02/09/2012 10:5 5 AM EDT 02/09/2012 4:00 PM EDT Inan Tovar MD ECG ORDERABLES MUSE SYSTEM * [...] SCAN EXT O RDR/RSLT * SCAN DOC: SUGAR PRESSER (01/10/2012 1:46 PM EST) Anatomical Region Laterality Modality Other Narrative 01/11/2012 8:32 AM EST Procedure Note Provider, Scanning - 01/10/2012 1:46 PM EST Scanning Provider MEDIA MGR SCAN EXT O RDR/RSLT * POCT GLUCOSE LAB USE ONLY (01/08/2012 12:00 PM EST) Glucose, POC 106 60 - 199 mg/dL [facility] Comment: Supplemental ranges: <110 mg/dL before meals <200 mg/dL all other times of the day Blood specimen (specimen) 01/08/2012 12:00 PM EST 01/08/2012 12:00 PM EST Andi Rene MD POINT OF CARE TEST O RDERABLES Performing Organization Address City/[facility]/ZIP Co de Phone Number [facility] [employer] * Potassium (01/08/2012 10:05 AM EST) Potassium 4.2 3.5 - 5.0 mmol/L [facility] Comment: Please note: ??Patients with WBC [...] Tovar MD CHEMISTRY ORDERABLES Performing Organization Address [facility]/ZIP Co de Phone Number [facility] [address] * POCT GLUCOSE LAB USE ONLY (01/08/2012 7:21 AM EST) Glucose, POC 144 60 - 199 mg/dL [facility] Comment: Supplemental ranges: <110 mg/dL before meals <200 mg/dL all other times of the day Blood specimen (specimen) 01/08/2012 7:21 AM EST 01/08/2012 7:21 AM EST Andi Rene MD POINT OF CARE TEST O RDERAHERNANDEZ Performing Organization Address [facility] de Phone Number [facility] * POCT GLUCOSE LAB USE ONLY (01/07/2012 8:43 PM EST) Glucose, POC 179 60 - 199 mg/dL [facility] Comment: Supplemental ranges: <110 mg/dL before meals <200 mg/dL all other times of the day Blood specimen (specimen) 01/07/2012 8:43 PM EST 01/07/2012 8:43 PM EST Andi Rene MD POINT OF CARE TEST O GILDA Performing Organization Address [facility] de Phone Number [facility] * POCT GLUCOSE LAB USE ONLY (01/07/2012 4:47 PM EST) Glucose, POC 128 60 - 199 mg/dL [facility] Comment: Supplemental ranges: <110 mg/dL before meals <200 mg/dL all other times of the day Blood specimen (specimen) 01/07/2012 4:47 PM EST 01/07/2012 4:47 PM EST Andi Rene MD POINT OF CARE TEST O GILDA Performing Organization Address [facility] de Phone Number [facility] * Potassium (01/07/2012 11:42 AM EST) Potassium 3.6 3.5 - 5.0 mmol/L [facility] Comment: Please note: ??Patients with WBC [...] Tovar MD CHEMISTRY ORDERABLES Performing Organization Address [facility] Co de Phone Number [facility] * POCT GLUCOSE LAB USE ONLY (01/07/2012 11:41 AM EST) Glucose, POC 114 60 - 199 mg/dL [facility] Comment: Supplemental ranges: <110 mg/dL before meals <200 mg/dL all other times of the day Blood specimen (specimen) 01/07/2012 11:41 AM EST 01/07/2012 11:41 AM EST Andi Rene MD POINT OF CARE TEST O RDERABLES Performing Organization Address [facility] Co de Phone Number [facility] * XR chest routine PA & [...] LAB USE ONLY (01/07/2012 8:00 AM EST) Glucose, POC 116 60 - 199 mg/dL [facility] Comment: Supplemental ranges: <110 mg/dL before meals <200 mg/dL all other times of the day Blood specimen (specimen) 01/07/2012 8:00 AM EST 01/07/2012 8:00 AM EST Andi Rene MD POINT OF CARE TEST O RDERABLES [facility] * (ABNORMAL) DIFFERENTIAL, AUTOMATED (01/07/2012 4:11 [...] HEMATOLOGY ORDERABLE S [facility] * (ABNORMAL) Basic Metabolic Panel (non-fasting) (01/07/2012 [...] In Lab Sarthak Pollard MD CHEMISTRY ORDERABLES [facility] CER[facility] * (ABNORMAL) CBC (with Diff) (01/07/2012 4:11 [...] MD HEMATOLOGY ORDERABLE S [facility] * Microalbumin, urine, random (01/06/2012 9:03 PM EST) Creatinine, Urine 136 mg/dL CE RNER MILLENNIUM Albumin, Urine 14.4 mg/L [facility]ERNE R MILLENNIUM Albumin / Creatinin Ratio, Urine 11 mcg/mg Cr [facility] Comment: Reference Range* Random collection (mcg/mg creatinine) Normal ?<30 Microalbuminuria ?? 30 - 300 Clinical Albuminuria ?? >300 *[place] Diabetes Association. Diabetic Nephropathy. Diabetes Care 1997;(Suppl 1):S24-S27 Exercise within 24 hour, infection, fever, CHF, marked hyperglycemia, and marked hypertension may elevate urinary albumin excretion over baseline values. Urine specimen (specimen) 01/06/2012 9:03 PM EST 01/06/2012 10:28 PM EST Narrative Resulting Agency Comment Spec In Lab Inna Tovar MD URINE ORDERABLES Performing Organization Address [facility] Co de Phone Number [facility] * POCT GLUCOSE LAB USE ONLY (01/06/2012 7:46 PM EST) Glucose, POC 127 60 - 199 mg/dL [facility] Comment: Supplemental ranges: <110 mg/dL before meals <200 mg/dL all other times of the day Blood specimen (specimen) 01/06/2012 7:46 PM EST 01/06/2012 7:46 PM EST Andi Rene MD POINT OF CARE TEST O RDTYESHA Performing Organization Address [facility] de Phone Number [facility] * POCT GLUCOSE LAB USE ONLY (01/06/2012 4:24 PM EST) Glucose, POC 131 60 - 199 mg/dL [facility] Comment: Supplemental ranges: <110 mg/dL before meals <200 mg/dL all other times of the day Blood specimen (specimen) 01/06/2012 4:24 PM EST 01/06/2012 4:24 PM EST Andi Rene MD POINT OF CARE TEST O RDERAHERNANDEZ Performing Organization Address [facility] de Phone Number [facility] * POCT GLUCOSE LAB USE ONLY (01/06/2012 12:06 PM EST) Glucose, POC 160 60 - 199 mg/dL [facility] Comment: Supplemental ranges: <110 mg/dL before meals <200 mg/dL all other times of the day Blood specimen (specimen) 01/06/2012 12:06 PM EST 01/06/2012 12:06 PM EST Andi Rene MD POINT OF CARE TEST O RDERAHERNANDEZ Performing Organization Address [facility] Co de Phone Number [facility] * Potassium (01/06/2012 9:59 AM EST) Potassium 4.0 3.5 - 5.0 mmol/L [facility] Comment: Please note: ??Patients with WBC [...] Tovar MD CHEMISTRY ORDERABLES Performing Organization Address [facility] de Phone Number [facility] * POCT GLUCOSE LAB USE ONLY (01/06/2012 6:53 AM EST) Glucose, POC 168 60 - 199 mg/dL [facility] Comment: Supplemental ranges: <110 mg/dL before meals <200 mg/dL all other times of the day Blood specimen (specimen) 01/06/2012 6:53 AM EST 01/06/2012 6:53 AM EST Andi Rene MD POINT OF CARE TEST Stephanie VO Performing Organization Address [facility] Phone Number [facility] * POCT GLUCOSE LAB USE ONLY (01/06/2012 5:03 AM EST) Glucose, POC 147 60 - 199 mg/dL [facility] Comment: Supplemental ranges: <110 mg/dL before meals <200 mg/dL all other times of the day Blood specimen (specimen) 01/06/2012 5:03 AM EST 01/06/2012 5:03 AM EST Andi Rene MD POINT OF CARE TEST O RDTYESHA Performing Organization Address [facility] Phone Number [facility] * POCT GLUCOSE LAB USE ONLY (01/06/2012 3:16 AM EST) Glucose, POC 126 60 - 199 mg/dL [facility] Comment: Supplemental ranges: <110 mg/dL before meals <200 mg/dL all other times of the day Blood specimen (specimen) 01/06/2012 3:16 AM EST 01/06/2012 3:16 AM EST Andi Rene MD POINT OF CARE TEST O RDTYESHA Performing Organization Address [facility] Co de Phone Number [facility] * POCT GLUCOSE LAB USE ONLY (01/06/2012 1:12 AM EST) Glucose, POC 135 60 - 199 mg/dL [facility] Comment: Supplemental ranges: <110 mg/dL before meals <200 mg/dL all other times of the day Blood specimen (specimen) 01/06/2012 1:12 AM EST 01/06/2012 1:12 AM EST Andi Rene MD POINT OF CARE TEST O GILDA Performing Organization Address [facility] Co de Phone Number [facility] * POCT GLUCOSE LAB USE ONLY (01/05/2012 11:52 PM EST) Glucose, POC 133 60 - 199 mg/dL [facility] Comment: Supplemental ranges: <110 mg/dL before meals <200 mg/dL all other times of the day Blood specimen (specimen) 01/05/2012 11:52 PM EST 01/05/2012 11:52 PM EST Andi Rene MD POINT OF CARE TEST O GILDA Performing Organization Address [facility] Co de Phone Number [facility] * POCT GLUCOSE LAB USE ONLY (01/05/2012 10:54 PM EST) Glucose, POC 130 60 - 199 mg/dL [facility] Comment: Supplemental ranges: <110 mg/dL before meals <200 mg/dL all other times of the day Blood specimen (specimen) 01/05/2012 10:54 PM EST 01/05/2012 10:54 PM EST Andi Rene MD POINT OF CARE TEST O RDERABLES Performing Organization Address [facility] Co de Phone Number [facility] * POCT GLUCOSE LAB USE ONLY (01/05/2012 9:51 PM EST) Glucose, POC 132 60 - 199 mg/dL [facility] Comment: Supplemental ranges: <110 mg/dL before meals <200 mg/dL all other times of the day Blood specimen (specimen) 01/05/2012 9:51 PM EST 01/05/2012 9:51 PM EST Andi Rene MD POINT OF CARE TEST O RDERABLES Performing Organization Address [facility] de Phone Number [facility] * POCT GLUCOSE LAB USE ONLY (01/05/2012 8:50 PM EST) Glucose, POC 126 60 - 199 mg/dL [facility] Comment: Supplemental ranges: <110 mg/dL before meals <200 mg/dL all other times of the day Blood specimen (specimen) 01/05/2012 8:50 PM EST 01/05/2012 8:50 PM EST Andi Rene MD POINT OF CARE TEST O RDERAHERNANDEZ Performing Organization Address [facility] de Phone Number [facility] * POCT GLUCOSE LAB USE ONLY (01/05/2012 8:07 PM EST) Glucose, POC 126 60 - 199 mg/dL [facility] Comment: Supplemental ranges: <110 mg/dL before meals <200 mg/dL all other times of the day Blood specimen (specimen) 01/05/2012 8:07 PM EST 01/05/2012 8:07 PM EST Andi Rene MD POINT OF CARE TEST O RDERABLES Performing Organization Address [facility] Co de Phone Number [facility] * POCT GLUCOSE LAB USE ONLY (01/05/2012 6:57 PM EST) Glucose, POC 137 60 - 199 mg/dL [facility] Comment: Supplemental ranges: <110 mg/dL before meals <200 mg/dL all other times of the day Blood specimen (specimen) 01/05/2012 6:57 PM EST 01/05/2012 6:57 PM EST Andi Rene MD POINT OF CARE TEST O GILDA Performing Organization Address [facility] de Phone Number [facility] * POCT GLUCOSE LAB USE ONLY (01/05/2012 4:59 PM EST) Glucose, POC 147 60 - 199 mg/dL [facility] Comment: Supplemental ranges: <110 mg/dL before meals <200 mg/dL all other times of the day Blood specimen (specimen) 01/05/2012 4:59 PM EST 01/05/2012 4:59 PM EST Andi Rene MD POINT OF CARE TEST O GILDA Performing Organization Address [facility] de Phone Number [facility] * POCT GLUCOSE LAB USE ONLY (01/05/2012 1:05 PM EST) Glucose, POC 154 60 - 199 mg/dL [facility] Comment: Supplemental ranges: <110 mg/dL before meals <200 mg/dL all other times of the day Blood specimen (specimen) 01/05/2012 1:05 PM EST 01/05/2012 1:05 PM EST Andi Rene MD POINT OF CARE TEST O GILDA Performing Organization Address [facility] de Phone Number [facility] * POCT GLUCOSE LAB USE ONLY (01/05/2012 12:42 PM EST) Glucose, POC 148 60 - 199 mg/dL [facility] Comment: Supplemental ranges: <110 mg/dL before meals <200 mg/dL all other times of the day Blood specimen (specimen) 01/05/2012 12:42 PM EST 01/05/2012 12:42 PM EST Andi Rene MD POINT OF CARE TEST O RDTYESHA Performing Organization Address [facility] de Phone Number [facility] * POCT GLUCOSE LAB USE ONLY (01/05/2012 9:54 AM EST) Glucose, POC 145 60 - 199 mg/dL [facility] Comment: Supplemental ranges: <110 mg/dL before meals <200 mg/dL all other times of the day Blood specimen (specimen) 01/05/2012 9:54 AM EST 01/05/2012 9:54 AM EST Andi Rene MD POINT OF CARE TEST O GILDA Performing Organization Address [facility] de Phone Number [facility] * POCT GLUCOSE LAB USE ONLY (01/05/2012 8:00 AM EST) Glucose, POC 168 60 - 199 mg/dL [facility] Comment: Supplemental ranges: <110 mg/dL before meals <200 mg/dL all other times of the day Blood specimen (specimen) 01/05/2012 8:00 AM EST 01/05/2012 8:00 AM EST Andi Rene MD POINT OF CARE TEST O GILDA Performing Organization Address [facility] de Phone Number [facility] * POCT GLUCOSE LAB USE ONLY (01/05/2012 5:58 AM EST) Glucose, POC 164 60 - 199 mg/dL [facility] Comment: Supplemental ranges: <110 mg/dL before meals <200 mg/dL all other times of the day Blood specimen (specimen) 01/05/2012 5:58 AM EST 01/05/2012 5:58 AM EST Andi Rene MD POINT OF CARE TEST O RDERAHERNANDEZ Performing Organization Address [facility] de Phone Number [facility] * POCT GLUCOSE LAB USE ONLY (01/05/2012 4:12 AM EST) Glucose, POC 148 60 - 199 mg/dL [facility] Comment: Supplemental ranges: <110 mg/dL before meals <200 mg/dL all other times of the day Blood specimen (specimen) 01/05/2012 4:12 AM EST 01/05/2012 4:12 AM EST Andi Rene MD POINT OF CARE TEST O RDERAHERNANDEZ Performing Organization Address [facility] de Phone Number [facility]RI[facility] * POCT GLUCOSE LAB USE ONLY (01/05/2012 2:05 AM EST) Glucose, POC 148 60 - 199 mg/dL [facility] Comment: Supplemental ranges: <110 mg/dL before meals <200 mg/dL all other times of the day Blood specimen (specimen) 01/05/2012 2:05 AM EST 01/05/2012 2:05 AM EST Andi Rene MD POINT OF CARE TEST O RDTYESHA Performing Organization Address [facility] de Phone Number [facility] NELSON * (ABNORMAL) DIFFERENTIAL, AUTOMATED (01/05/2012 2:00 AM EST) Neutrophil % 79.0(H) 34.0 - 71.0 % [facility] Neutrophil Absolute 19.40(H) 1.50 - 6.30 x10(3)/mc [...] EST Sarthak Pollard MD HEMATOLOGY ORDERABLE S [facility] * (ABNORMAL) Cardiac Enzymes (01/05/2012 2:00 AM EST) Troponin-T 0.39(H) <=0.03 ng/mL [facility] Comment: 0.03 ng/mL: Represents the 99th percentile upper reference limit for normals. >0.03 ng/mL: Elevated cardiac troponin T level indicative of myocardial damage. Diagnosis of acute, evolving or recent VT requires a typical rise and gradual fall [...] consensus document of the Joint Society of Cardiology/[place] College of Cardiology Committee for the redefinition of myocardial infarction. Journal of the [place] College of Cardiology 2000; 36: 959-969] Creatine Kinase 436(H) 0 - 200 unit/L [facility] Blood specimen (specimen) 01/05/2012 2:00 AM EST 01/05/2012 2:11 AM EST Narrative Resulting Agency Comment Spec In Lab Sarthak Pollard MD CHEMISTRY ORDERABLES Performing Organization Address [facility] de Phone Number [facility] * Potassium (01/05/2012 2:00 AM EST) Potassium 4.4 3.5 - 5.0 mmol/L [facility] Comment: Please note: ??Patients with WBC [...] Pollard MD CHEMISTRY ORDERABLES Performing Organization Address [facility] Phone Number [facility] * (ABNORMAL) Glucose, fasting (01/05/2012 2:00 AM EST) Glucose Fasting 148(H) 65 - 99 mg/dL [facility] Comment: ?Fasting* Glucose Interpretive Criteria Normal [...] of Diabetes Mellitus, Position Statement from the [place] Diabetes Association. ??Diabetes Care, Volume 33, Supplement 1, Nov 2009 Blood specimen (specimen) 01/05/2012 2:00 AM EST 01/05/2012 2:11 AM EST Narrative Resulting Agency Comment Spec In Lab Sarthak Pollard MD CHEMISTRY ORDERABLES Performing Organization Address City/State/[facility] Co de Phone Number ARIAN NELSON * Creatinine, serum (01/05/2012 2:00 AM EST) Creatinine 0.86 0.80 - 1.50 mg/dL [facility] Est Glomerular Filtration Rate >60 >=60 [facility] Comment: The National Kidney Disease Education [...] Pollard MD CHEMISTRY ORDERABLES Performing Organization Address City/State/[facility] de Phone Number [facility] * BUN (01/05/2012 2:00 AM EST) Blood Urea Nitrogen 10 10 - 20 mg/dL [facility]EN[facility] Blood specimen (specimen) 01/05/2012 2:00 AM EST 01/05/2012 2:11 AM EST Narrative Resulting Agency Comment Spec In Lab Sarthak Pollard MD CHEMISTRY ORDERABLES Performing Organization Address [facility] de Phone Number [facility] ACENNIUM * (ABNORMAL) CBC (with Diff) (01/05/2012 2:00 [...] 12.0 fL [facility]ILLENNI[facility] Blood specimen (specimen) 01/05/2012 2:00 AM EST 01/05/2012 2:11 AM EST Narrative Resulting Agency Comment Spec In Lab Sarthak Pollard MD HEMATOLOGY ORDERABLE S Performing Organization Address [facility] Co de Phone Number [facility] CERDAIUM * POCT GLUCOSE LAB USE ONLY (01/04/2012 11:58 PM EST) Glucose, POC 136 60 - 199 mg/dL [facility] Comment: Supplemental ranges: <110 mg/dL before meals <200 mg/dL all other times of the day Blood specimen (specimen) 01/04/2012 11:58 PM EST 01/04/2012 11:58 PM EST Andi Rene MD POINT OF CARE TEST O RDTYESHA Performing Organization Address [facility] Co de Phone Number [facility] * POCT GLUCOSE LAB USE ONLY (01/04/2012 9:00 PM EST) Glucose, POC 143 60 - 199 mg/dL [facility] Comment: Supplemental ranges: <110 mg/dL before meals <200 mg/dL all other times of the day Blood specimen (specimen) 01/04/2012 9:00 PM EST 01/04/2012 9:00 PM EST Andi Rene MD POINT OF CARE TEST O GILDA Performing Organization Address [facility] Co de Phone Number [facility] * GLUCOSE, RANDOM (01/04/2012 9:00 PM EST) Glucose 128 60 - 199 mg/dL [facility] Comment:Diabetes: >=200 mg/d L plus symptoms Blood specimen (specimen) 01/04/2012 9:00 PM EST 01/04/2012 9:08 PM EST Narrative Resulting Agency Comment Spec In Lab Sarthak Pollard MD CHEMISTRY ORDERABLES Performing Organization Address [facility] Co de Phone Number [facility] * (ABNORMAL) Hemoglobin (01/04/2012 9:00 PM EST) Hemoglobin 13.6(L) 13.7 - 17.5 gm/dL [facility] Blood specimen (specimen) 01/04/2012 9:00 PM EST 01/04/2012 9:08 PM EST Narrative Resulting Agency Comment Spec In Lab Sarthak Pollard MD HEMATOLOGY ORDERABLE S Performing Organization Address [facility] Co de Phone Number [facility] CAENNIUM * Potassium (01/04/2012 9:00 PM EST) Potassium 4.7 3.5 - 5.0 mmol/L [facility] Comment: [...] Pollard MD CHEMISTRY ORDERABLES Performing Organization Address [facility] de Phone Number [facility] * (ABNORMAL) BLOOD GAS 2 ARTERIAL (01/04/2012 6:47 PM EST) pH, Arterial 7.33(L) [facility]ERNER MILLENNIUM PCO2, Arterial 47(H) mmHg CERNE R MILLENNIUM PO2, Arterial 109(H) mmHg [facility]ERNER MILLENNIUM Bicarbonate, Arterial 24.1 mmol/L [facility] MILLENNIUM Base Excess, Arterial -1.9 mmol/L [facility] MILLENNIUM Hgb Blood Gas 14.1 gm/dL [facility]ILLENNI[facility] Comment: Total Hemoglobin (in gm/dL) ?Based on [facility] Hematology ranges: ?Age ?Reference Range Less than [...] Comment: Total Hemoglobin (in gm/dL) ?Based on [facility] Hematology ranges: ?Age ?Reference Range Less than [...] IMPRESSION: Expected early postoperative findings. Ricky ANDERSON IMG DX ORDERABLES * (ABNORMAL) BLOOD GAS 2 ARTERIAL (01/04/2012 4:30 PM EST) pH, Arterial 7.35(L) CERNER MILLENNIUM PCO2, Arterial 46(H) mmHg CERNE R MILLENNIUM PO2, Arterial 223(H) mmHg [facility]ER MILLENNIUM Bicarbonate, Arterial 25.1 mmol/L CERNER MILLENNIUM Base Excess, Arterial -0.4 mmol/L CERNER MILLENNIUM Hgb Blood Gas Not Perf 13.7 - 17.5 gm/dL CERNER MILLENNIUM Comment: Total Hemoglobin (in gm/dL) ?Based on [facility] Hematology ranges: ?Age ?Reference Range Less than [...] CARE TEST O RDERABLES CERNER MILLENNIUM * EKG 12 Lead (01/04/2012 4:26 PM EST) Ventricular rate 72 BPM MUSE SYSTEM Atrial Rate 72 BPM MUSE SYSTEM P-R Interval 174 ms MUSE SYSTEM QRS Duration 96 ms MUSE SYSTEM Q-T Interval 416 ms MUSE SYSTEM QTC Calculated (Bezet) 455 ms MUSE SYSTEM Calculated P [place] 48 degrees MUSE SYSTEM Calculated R [place] 23 degrees MUSE SYSTEM Calculated T [place] 71 degrees MUSE SYSTEM INTERPRETATION Normal sinus rhythm Normal ECG When compared with ECG of 30-DEC-2011 17:24, Vent. rate has decreased BY ??35 BPM Minimal criteria for Inferior infarct are no longer Present Nonspecific T wave abnormality, improved in Anterolateral leads Confirmed by fellow MD Steve, Luca ([id number]) on 01/05/2012 10:22:57 AM Confirmed by MD DELMIS, SARTHAK ([id number]) on 01/05/2012 1:30:02 PM MUSE SYSTEM 01/04/2012 4:26 PM EST 01/05/2012 1:30 PM EST Sarthak Pollard MD ECG ORDERABLES MUSE SYSTEM * (ABNORMAL) DIFFERENTIAL, AUTOMATED (01/04/2012 [...] l) mmHg CERNER MILLENNIUM Comment: Noted by chemical instrumentation officer. MTF PO2, Arterial 145(H) mmHg CERNER MILLENNIUM Bicarbonate, Arterial 25.5 mmol/L CERNER MILLENNIUM Base Excess, Arterial -0.7 mmol/L CERNER MILLENNIUM Hgb Blood Gas 11.1(L) gm/dL CERNER MILLENNIUM Comment: Total Hemoglobin (in gm/dL) ?Based on [facility] Hematology ranges: ?Age ?Reference Range Less than [...] CARE TEST O RDERABLES Performing Organization Address City/[facility] Co de Phone Number [facility] * THROMBIN TIME (01/04/2012 3:28 PM EST) Thrombin Time 17 15 - 20 sec [facility] Blood specimen (specimen) 01/04/2012 3:28 PM EST 01/04/2012 3:28 PM EST Narrative Resulting Agency Comment Spec In Lab Sarthak Pollard MD HEMATOLOGY ORDERABLE S Performing Organization Address City/[facility] Co de Phone Number [facility] * FIBRINOGEN (01/04/2012 3:28 PM EST) Fibrinogen 364 200 - 470 mg/dL [facility] Comment:Called by: LEILANI, Read back by: AKANKSHA SAMPSON, Date/Time:01/04/12 15:45. Blood specimen (specimen) 01/04/2012 3:28 PM EST 01/04/2012 3:28 PM EST Narrative Resulting Agency Comment Spec In Lab Sarthak Pollard MD HEMATOLOGY ORDERABLE S Performing Organization Address [facility] de Phone Number ARIAN CERDAIUM * APTT (01/04/2012 3:28 PM EST) Partial Thromboplastin Time 30 25 - 35 sec CERNER MILLENNIUM Comment: Recommended therapeutic PTT range for full dose unfractionated heparin is 80-114 seconds. Blood specimen (specimen) 01/04/2012 3:28 PM EST 01/04/2012 3:28 PM EST Narrative Resulting Agency Comment Spec In Lab Sarthak Pollard MD HEMATOLOGY ORDERABLE S Performing Organization Address [facility] Phone Number ARIAN CAENNIUM * (ABNORMAL) PROTHROMBIN TIME (01/04/2012 3:28 PM EST) Prothrombin Time 17.8(H) 11.9 - 14.7 sec CERNER MILLENNIUM Comment: [facility] Transfusion Committee Guidelines: INR less than [...] MD HEMATOLOGY ORDERABLE S Performing Organization Address [facility] Co de Phone Number ARIAN CAENNIUM * (ABNORMAL) CBC (WITH DIFF) (01/04/2012 3:28 [...] l) mmHg CERNER MILLENNIUM Comment: Noted by chemical instrumentation officer. MTF PO2, Arterial 296(H) mmHg CERNER MILLENNIUM Bicarbonate, Arterial 26.3(H) mmol/L CERNER MILLENNIUM Base Excess, Arterial 0.1 mmol/L CERNER MILLENNIUM Hgb Blood Gas 10.2(L) gm/dL CERNER MILLENNIUM Comment: Total Hemoglobin (in gm/dL) ?Based on [facility] Hematology ranges: ?Age ?Reference Range Less than [...] MD POINT OF CARE TEST O RDERAHERNANDEZ CERNER MILLENNIUM * FIBRINOGEN (01/04/2012 2:25 PM EST) Fibrinogen 356 200 - 470 mg/dL CERNER MILLENNIUM Comment:Called by: LEILANI, Read back by: AKANKSHA CAMILLA, Date/Time:01/04/12 14:49. Blood specimen (specimen) 01/04/2012 2:25 PM EST 01/04/2012 2:32 PM EST Narrative Resulting Agency Comment Spec In Lab Sarthak Pollard MD HEMATOLOGY ORDERABLE S Performing Organization Address [facility] Co de Phone Number CERNER MILLENNIUM * PLATELET COUNT (01/04/2012 2:25 PM EST) Platelet 281 145 - 370 x10(3)/mcL CERNER MILLENNIUM Blood specimen (specimen) 01/04/2012 2:25 PM EST 01/04/2012 2:32 PM EST Narrative Resulting Agency Comment Spec In Lab Sarthak Pollard MD HEMATOLOGY ORDERABLE S Performing Organization Address [facility] Co de Phone Number CERNER MILLENNIUM * (ABNORMAL) BLOOD GAS 2 ARTERIAL (01/04/2012 12:59 PM EST) pH, Arterial 7.36 CERNER MILLENNIUM PCO2, Arterial 48(H) mmHg CERNE R MILLENNIUM PO2, Arterial 197(H) mmHg CERNER MILLENNIUM Bicarbonate, Arterial 26.7(H) mmol/L CERNER MILLENNIUM Base Excess, Arterial 1.3 mmol/L CERNER MILLENNIUM Hgb Blood Gas 13.9 gm/dL CERNER MILLENNIUM Comment: Total Hemoglobin (in gm/dL) ?Based on [facility] Hematology ranges: ?Age ?Reference Range Less than [...] CARE TEST O RDERABLES CERNER MILLENNIUM * Prepare Coag Factors (Non-Hemophilia) (01/04/2012 12:05 PM EST) Dispensed? Yes ARIAN CERDAIUM Blood specimen (specimen) 01/04/2012 12:05 PM EST 01/04/2012 12:01 PM EST Narrative Resulting Agency Comment Spec In Lab Inna Tovar MD BLOOD BANK PRODUCT O RDERABLES Performing Organization Address City/State/[facility] Co de Phone Number ARIAN CERDAIUM * Prepare RBC (01/04/2012 12:05 PM EST) Dispensed? Yes ARIAN CERDAIUM Blood specimen (specimen) 01/04/2012 12:05 PM EST 01/04/2012 12:01 PM EST Narrative Resulting Agency Comment Spec In Lab Inna Tovar MD BLOOD BANK PRODUCT O RDERABLES Performing Organization Address [facility] Co de Phone Number ARIAN CAENNIUM * (ABNORMAL) DIFFERENTIAL, MANUAL (01/04/2012 4:40 AM [...] 0.0 - 0.2 x10(3)/mc L CERNER MILLENNIUM [place] Absolute Manual 0.3(H) 0.0 - 0.0 x10(3)/mc [...] HEMATOLOGY ORDERABLE S CERNER ROBYENNIUM * (ABNORMAL) BMP w/fasting Glucose (01/04/2012 4:40 AM EST) Glucose Fasting 113(H) 65 - [...] of Diabetes Mellitus, Position Statement from the [place] Diabetes Association. ??Diabetes Care, Volume 33, Supplement 1, Nov 2009 Blood Urea Nitrogen 10 10 - 20 mg/dL CERNER ROBYENNIUM Creatinine 0.86 0.80 - 1.50 mg/dL CERNER [...] Rene MD CHEMISTRY ORDERABLES Performing Organization Address City/[facility]/ZIP Co de Phone Number CERBRIAN CAENNIUM * (ABNORMAL) CBC (with Diff) (01/04/2012 4:40 [...] HEMATOLOGY ORDERABLE S Performing Organization Address City/[facility]/ZIP Co de Phone Number ARIAN NELSON * (ABNORMAL) APTT (01/04/2012 4:40 AM EST) Partial Thromboplastin Time 103(H) 25 - 35 sec CERNER MILLENNIUM Comment: Recommended therapeutic PTT range for full dose unfractionated heparin is 80-114 seconds. Blood specimen (specimen) 01/04/2012 4:40 AM EST 01/04/2012 4:52 AM EST Narrative Resulting Agency Comment Spec In Lab Sarthak Pollard MD HEMATOLOGY ORDERABLE S CERNER MILLENNIUM * (ABNORMAL) APTT (01/03/2012 7:38 PM EST) Partial Thromboplastin Time 98(H) 25 - 35 sec CERNER MILLENNIUM Comment: Recommended therapeutic PTT range for full dose unfractionated heparin is 80-114 seconds. Blood specimen (specimen) 01/03/2012 7:38 PM EST 01/03/2012 7:53 PM EST Narrative Resulting Agency Comment Spec In Lab Sarthak Pollard MD HEMATOLOGY ORDERABLE S Performing Organization Address [facility] Co de Phone Number CERNER MILLENNIUM * (ABNORMAL) APTT (01/03/2012 12:17 PM EST) Partial Thromboplastin Time 101(H) 25 - 35 sec CERNER MILLENNIUM Comment: Recommended therapeutic PTT range for full dose unfractionated heparin is 80-114 seconds. Blood specimen (specimen) 01/03/2012 12:17 PM EST 01/03/2012 12:26 PM EST Narrative Resulting Agency Comment Spec In Lab Sarthak Pollard MD HEMATOLOGY ORDERABLE S Performing Organization Address [facility]/ZIP Co de Phone Number CERNER MILLENNIUM * (ABNORMAL) DIFFERENTIAL, MANUAL (01/03/2012 [...] MD HEMATOLOGY ORDERABLE S Performing Organization Address [facility] de Phone Number CERNER MILLENNIUM * ANTIBODY SCREEN (01/03/2012 6:15 AM EST) Ab Screen Interp Negative CERNER MILLENNIUM Expires at [id number] on: [id number] CERNER MILLENNIUM Blood specimen (specimen) 01/03/2012 6:15 AM EST 01/03/2012 6:35 AM EST Narrative Resulting Agency Comment Spec In Lab Sarthak Pollard MD BLOOD BANK LAB ORDER RANDELL Performing Organization Address City/[facility] de Phone Number CERNER MILLENNIUM * ABO/RH TYPING (01/03/2012 6:15 AM EST) ABORH Type A Pos CERNER MILLENNIUM Blood specimen (specimen) 01/03/2012 6:15 AM EST 01/03/2012 6:35 AM EST Narrative Resulting Agency Comment Spec In Lab Sarthak Pollard MD BLOOD BANK LAB ORDER RANDELL Performing Organization Address City/[facility] Co de Phone Number CERNER MILLENNIUM * (ABNORMAL) APTT (01/03/2012 6:15 AM EST) Partial Thromboplastin Time 96(H) 25 - 35 sec CERNER MILLENNIUM Comment: Recommended therapeutic PTT range for full dose unfractionated heparin is 80-114 seconds. Blood specimen (specimen) 01/03/2012 6:15 AM EST 01/03/2012 6:23 AM EST Narrative Resulting Agency Comment Spec In Lab Sarthak Pollard MD HEMATOLOGY ORDERABLE S CERNER MILLENNIUM * (ABNORMAL) BMP w/fasting Glucose (01/03/2012 6:15 AM EST) Glucose Fasting 116(H) 65 - 99 mg/dL CERNER MILLENNIUM Comment: [...] of Diabetes Mellitus, Position Statement from the [place] Diabetes Association. ??Diabetes Care, Volume 33, Supplement [...] In Lab Andi Rene MD CHEMISTRY ORDERABLES CERBRIAN ACENNIUM * (ABNORMAL) CBC (with Diff) (01/03/2012 6:15 AM EST) White Blood Cell 12.0(H) 4.0 - 10.0 x10(3)/mc L CERNER MILLENNIUM Red Blood Cell 4.68 4.63 - 6.08 x10(6)/mc L [facility] Hemoglobin 14.1 13.7 - 17.5 gm/dL [facility] MILL[facility]UM Hematocrit 40.8 40.0 - 51.0 % [facility] MILL[facility]UM Mean Cell Volume 87.2 79.0 - 92.0 fL [facility] Mean Cell Hemoglobin 30.1 25.6 - 32.2 pg [facility] M[facility] Mean Cell Hemoglobin Concentration 34.6 32.0 - 36.5 gm/dL [facility] MILL[facility]UM Platelet 295 145 - 370 x10(3)/mc L [facility] MILLENNIUM RDW Standard Deviation 40.5 35.0 - 46.0 fL [facility] MILLENNIUM RDW coefficient of variation 12.6 10.9 - 14.4 % CERNER MILLENNIUM Mean Platelet Volume 9.9 9.0 - 12.0 fL [facility] Blood specimen (specimen) 01/03/2012 6:15 AM EST 01/03/2012 6:23 AM EST Narrative Resulting Agency Comment Spec In Lab Remigio Ceron MD HEMATOLOGY ORDERABLE S Performing Organization Address [facility] de Phone Number [facility] * (ABNORMAL) APTT (01/02/2012 11:21 PM EST) Partial Thromboplastin Time 69(H) 25 - 35 sec [facility] Comment: Recommended therapeutic PTT range for full dose unfractionated heparin is 80-114 seconds. Blood specimen (specimen) 01/02/2012 11:21 PM EST 01/02/2012 11:24 PM EST Narrative Resulting Agency Comment Spec In Lab Sarthak Pollard MD HEMATOLOGY ORDERABLE S Performing Organization Address [facility] Co de Phone Number [facility] * (ABNORMAL) APTT (01/02/2012 5:32 PM EST) Partial Thromboplastin Time 53(H) 25 - 35 sec [facility] Comment: Recommended therapeutic PTT range for full dose unfractionated heparin is 80-114 seconds. Blood specimen (specimen) 01/02/2012 5:32 PM EST 01/02/2012 5:38 PM EST Narrative Resulting Agency Comment Spec In Lab Sarthak Pollard MD HEMATOLOGY ORDERABLE S CERBRIAN CAENNIUM * (ABNORMAL) APTT (01/02/2012 11:56 AM EST) Partial Thromboplastin Time 46(H) 25 - 35 sec CERNER MILLENNIUM Comment: Recommended therapeutic PTT range for full dose unfractionated heparin is 80-114 seconds. Blood specimen (specimen) 01/02/2012 11:56 AM EST 01/02/2012 12:05 PM EST Narrative Resulting Agency Comment Spec In Lab Sarthak Pollard MD HEMATOLOGY ORDERABLE S Performing Organization Address [facility]/ZIP Co de Phone Number CERBRIAN CAENNIUM * (ABNORMAL) DIFFERENTIAL, AUTOMATED (01/02/2012 6:02 AM EST) Neutrophil % 64.4 34.0 - 71.0 % CERNER MILLENNIUM Neutrophil Absolute 6.49(H) 1.50 - 6.30 x10(3)/mc [...] Absolute 0.10(H) 0.00 - 0.05 x10(3)/mc L [facility] Blood specimen (specimen) 01/02/2012 6:02 AM EST 01/02/2012 6:29 AM EST Remigio Ceron MD HEMATOLOGY ORDERABLE S Performing Organization Address [facility] de Phone Number [facility] * (ABNORMAL) APTT (01/02/2012 6:02 AM EST) Partial Thromboplastin Time 42(H) 25 - 35 sec [facility] Comment: Recommended therapeutic PTT range for full dose unfractionated heparin is 80-114 seconds. Blood specimen (specimen) 01/02/2012 6:02 AM EST 01/02/2012 6:29 AM EST Narrative Resulting Agency Comment Spec In Lab Sarthak Pollard MD HEMATOLOGY ORDERABLE S Performing Organization Address [facility] de Phone Number [facility] * (ABNORMAL) BMP w/fasting Glucose (01/02/2012 6:02 AM EST) Glucose Fasting 113(H) 65 - 99 mg/dL [facility] Comment: ?Fasting* Glucose Interpretive Criteria Normal [...] of Diabetes Mellitus, Position Statement from the [place] Diabetes Association. ??Diabetes Care, Volume 33, Supplement [...] Narrative Resulting Agency Comment Spec In Lab nAdi Rene MD CHEMISTRY ORDERABLES CERNER MILLENNIUM * (ABNORMAL) CBC (with Diff) (01/02/2012 6:02 [...] S CERNER MILLENNIUM * (ABNORMAL) DIFFERENTIAL, AUTOMATED (01/01/2012 6:37 PM [...] fL CERNER MILLENNIUM Blood specimen (specimen) 01/01/2012 6:37 PM EST 01/01/2012 6:43 PM EST Narrative Resulting Agency Comment Spec In Lab Sarthak Pollard MD HEMATOLOGY ORDERABLE S ARIAN CAENNIUM * APTT (01/01/2012 6:37 PM EST) Partial Thromboplastin Time 32 25 - 35 sec CERNER MILLENNIUM Comment: Recommended therapeutic PTT range for full dose unfractionated heparin is 80-114 seconds. Blood specimen (specimen) 01/01/2012 6:37 PM EST 01/01/2012 6:43 PM EST Narrative Resulting Agency Comment Spec In Lab Sarthak Pollard MD HEMATOLOGY ORDERABLE S Performing Organization Address [facility] Phone Number [facility] * POCT GLUCOSE LAB USE ONLY (01/01/2012 12:02 PM EST) Glucose, POC 99 60 - 199 mg/dL [facility] Comment: Supplemental ranges: <110 mg/dL before meals <200 mg/dL all other times of the day Blood specimen (specimen) 01/01/2012 12:02 PM EST 01/01/2012 12:02 PM EST Andi Rene MD POINT OF CARE TEST O RDERABLES Performing Organization Address [facility] Phone Number [facility] * (ABNORMAL) APTT (01/01/2012 11:59 AM EST) Partial Thromboplastin Time 108(H) 25 - 35 sec [facility] Comment: Recommended therapeutic PTT range for full dose unfractionated heparin is 80-114 seconds. Blood specimen (specimen) 01/01/2012 11:59 AM EST 01/01/2012 12:06 PM EST Narrative Resulting Agency Comment Spec In Lab Andi Rene MD HEMATOLOGY ORDERABLE S Performing Organization Address [facility] Phone Number [facility] * XR chest routine PA & [...] x10(3)/mc L CERNER MILLENNIUM Immature Gran % 0.50 0.00 - 0.66 % CERNER MILLENNIUM Comment: [...] L CERNER MILLENNIUM Blood specimen (specimen) 01/01/2012 5:19 AM EST 01/01/2012 5:36 AM EST Remigio Ceron MD HEMATOLOGY ORDERABLE S CERNER MILLENNIUM * (ABNORMAL) APTT (01/01/2012 5:19 AM EST) Partial Thromboplastin Time 105(H) 25 - 35 sec CERNER MILLENNIUM Comment: Recommended therapeutic PTT range for full dose unfractionated heparin is 80-114 seconds. Blood specimen (specimen) 01/01/2012 5:19 AM EST 01/01/2012 5:36 AM EST Narrative Resulting Agency Comment Spec In Lab Remigio Ceron MD HEMATOLOGY ORDERABLE S CERBRIAN CAENNIUM * (ABNORMAL) BMP w/fasting Glucose (01/01/2012 5:19 AM EST) Glucose Fasting 121(H) 65 - 99 mg/dL CERNER MILLENNIUM Comment: [...] of Diabetes Mellitus, Position Statement from the [place] Diabetes Association. ??Diabetes Care, Volume 33, Supplement [...] Lab Andi Rene MD CHEMISTRY ORDERABLES ARIAN NELSON * (ABNORMAL) CBC (with Diff) (01/01/2012 5:19 [...] MD HEMATOLOGY ORDERABLE S Performing Organization Address [facility] Co de Phone Number [facility] * (ABNORMAL) APTT (12/31/2011 11:01 PM EST) Partial Thromboplastin Time 72(H) 25 - 35 sec [facility] MILLENNIUM Comment: Recommended therapeutic PTT range for full dose unfractionated heparin is 80-114 seconds. Blood specimen (specimen) 12/31/2011 11:01 PM EST 12/31/2011 11:18 PM EST Narrative Resulting Agency Comment Spec In Lab Andi Rene MD HEMATOLOGY ORDERABLE S Performing Organization Address City/[facility] Co de Phone Number [facility] * Upper Respiratory Culture Throat (12/31/2011 9:55 PM EST) Upper Respiratory Culture ? Patient Name: ZACK HEART, GEOVANNA P ? Ordered By: ANDI RENE ? MR#: [id number] ?LOC: ??[facility] ? /Sex: ??1975 (36 years), ? Male ? PROCEDURE: Upper Respiratory Culture ?SOURCE: Throat ? COLLECTED: 12/31/2011 21:55 ? STARTED: 12/31/2011 22:16 ? FINAL REPORT ? Final Report ? Verified:2011 08:12 ? Beta Hemolytic Streptococci, Group A isolated ? PRELIMINARY REPORT ? Preliminary Report ? Verified:2011 09:46 ? Beta Hemolytic Streptococci, Group A isolated ? [facility] Specimen from throat (specimen) 12/31/2011 9:55 PM EST 12/31/2011 10:16 PM EST Narrative Resulting Agency Comment Spec In Lab Andi Rene MD MICROBIOLOGY - GENER AL ORDERABLES [facility] * (ABNORMAL) APTT (12/31/2011 4:34 PM EST) Partial Thromboplastin Time 66(H) 25 - 35 sec [facility] Comment: Recommended therapeutic PTT range for full dose unfractionated heparin is 80-114 seconds. Blood specimen (specimen) 12/31/2011 4:34 PM EST 12/31/2011 4:39 PM EST Narrative Resulting Agency Comment Spec In Lab Andi Rene MD HEMATOLOGY ORDERABLE S Performing Organization Address City/[facility] Co de Phone Number ARIAN NELSON * Duplex Study for DVT, Bilat legs (12/31/2011 11:07 AM EST) VB Text Report Department: Vascular Surgery Lab Patient: [id number] (GEOVANNA DIXON) CPT Code: 43520 ICD-9: 780.6 Referring Physician: ANDI RENE Indication: [...] 10:39 AM EST) Smear Review Report ? [facility] ? Provider: ?? ANDI RENE S ?Pt. Name: ?? GEOVANNA DIXON JR P ? Acc #: ?[id number] ? Pt. ? Col Date: ?? 12/31/2011 [...] ? SS ? 01/01/12 Verified by: ? Juan Carlos DE, Song Valdovinos ? Hematopathologist ? (Electronic Signature) ? The [...] ? and confirm Dr. Katrin Chakraborty's diagnosis. CERNER MILLENNIUM 12/31/2011 10:3 9 AM EST Andi Ruiz Rene MD HEMATOLOGY ORDERABLE S CERNER MILLENNIUM * (ABNORMAL) DIFFERENTIAL, MANUAL (12/31/2011 9:44 AM [...] Lab Andi Rene MD HEMATOLOGY ORDERABLE S CERNER ROBYENNIUM * (ABNORMAL) DIFFERENTIAL, AUTOMATED (12/31/2011 9:44 AM [...] AM EST 12/31/2011 10:12 AM EST Andi Rene MD HEMATOLOGY ORDERABLE S CERNER MILLENNIUM [...] Platelet Volume 10.4 9.0 - 12.0 fL CERNER MILLENNIUM Blood specimen (specimen) 12/31/2011 9:44 AM EST 12/31/2011 10:12 AM EST Narrative Resulting Agency Comment Spec In Lab Andi Rene MD HEMATOLOGY ORDERABLE S Performing Organization Address [facility] Co de Phone Number ARIAN CAENNIUM * Lactate Dehydrogenase (12/31/2011 9:44 AM EST) Lactate Dehydrogenase 123 110 - 220 unit/L CERNER MILLENNIUM Blood specimen (specimen) 12/31/2011 9:44 AM EST 12/31/2011 10:12 AM EST Narrative Resulting Agency Comment Spec In Lab Andi Rene MD CHEMISTRY ORDERABLES CERBRIAN MILLENNIUM * Peripheral Smear Review (12/31/2011 9:44 AM EST) Peripheral Smear Review See Comment CERBRIAN CAENNIUM Comment: When completed by the Pathologist, report [id number] will display under Hematology Reports. Blood specimen (specimen) 12/31/2011 9:44 AM EST 12/31/2011 10:12 AM EST Narrative Resulting Agency Comment Spec In Lab Andi Rene MD HEMATOLOGY ORDERABLE S ARIAN CERDAIUM * (ABNORMAL) APTT (12/31/2011 9:44 AM EST) Partial Thromboplastin Time 50(H) 25 - 35 sec JILLIANNER MILLENNIUM Comment: Recommended therapeutic PTT range for full dose unfractionated heparin is 80-114 seconds. Blood specimen (specimen) 12/31/2011 9:44 AM EST 12/31/2011 10:12 AM EST Narrative Resulting Agency Comment Spec In Lab Andi Rene MD HEMATOLOGY ORDERABLE S ARIAN NELSON * (ABNORMAL) DIFFERENTIAL, AUTOMATED (12/31/2011 3:38 AM [...] MD HEMATOLOGY ORDERABLE S Performing Organization Address [facility]/ZIP Co de Phone Number [facility] * (ABNORMAL) APTT (12/31/2011 3:38 AM EST) Partial Thromboplastin Time 47(H) 25 - 35 sec [facility] Comment: Recommended therapeutic PTT range for full dose unfractionated heparin is 80-114 seconds. Blood specimen (specimen) 12/31/2011 3:38 AM EST 12/31/2011 3:50 AM EST Narrative Resulting Agency Comment Spec In Lab Andi Rene MD HEMATOLOGY ORDERABLE S Performing Organization Address [facility] de Phone Number [facility] * (ABNORMAL) BMP w/fasting Glucose (12/31/2011 3:38 AM EST) Glucose Fasting 114(H) 65 - 99 mg/dL [facility] Comment: ?Fasting* Glucose Interpretive Criteria Normal [...] of Diabetes Mellitus, Position Statement from the [place] Diabetes Association. ??Diabetes Care, Volume 33, Supplement [...] CERNER MILLENNIUM * (ABNORMAL) CBC (with Diff) (12/31/2011 3:38 [...] MD HEMATOLOGY ORDERABLE S Performing Organization Address [facility] de Phone Number [facility] * (ABNORMAL) APTT (12/30/2011 9:02 PM EST) Partial Thromboplastin Time 37(H) 25 - 35 sec [facility] Comment: Recommended therapeutic PTT range for full dose unfractionated heparin is 80-114 seconds. Blood specimen (specimen) 12/30/2011 9:02 PM EST 12/30/2011 9:10 PM EST Narrative Resulting Agency Comment Spec In Lab Andi Rene MD HEMATOLOGY ORDERABLE S Performing Organization Address [facility] de Phone Number [facility] * EKG 12 Lead (12/30/2011 5:24 PM EST) Ventricular rate 107 BPM MUSE SYSTEM Atrial Rate 107 BPM MUSE SYSTEM P-R Interval 160 ms MUSE SYSTEM QRS Duration 104 ms MUSE SYSTEM Q-T Interval 310 ms MUSE SYSTEM QTC Calculated (Bezet) 413 ms MUSE SYSTEM Calculated P [place] 24 degrees MUSE SYSTEM Calculated R [place] 25 degrees MUSE SYSTEM Calculated T [place] 54 degrees MUSE SYSTEM INTERPRETATION Sinus tachycardia Cannot rule out Inferior infarct , age undetermined Nonspecific T wave abnormality Abnormal ECG When compared with ECG of 29-DEC-2011 23:13, No significant change was found Confirmed by MD VAIBHAV, SARTHAK (51) on 12/31/2011 10:51:02 AM MUSE SYSTEM 12/30/2011 5:24 PM EST 12/31/2011 10:51 AM EST Andi Rene MD ECG ORDERABLES Performing Organization Address [facility] Co de Phone Number MUSE SYSTEM * Blood culture (12/30/2011 5:04 PM EST) Blood Culture ? Patient Name: GEOVANNA DIXON JR ?Ordered By: ANDI RENE ? MR#: [id number] ?LOC: ??ICCU ? /Sex: ??1975 (36 years), [...] PM EST) Blood Culture ? Patient Name: GEOVANNA DIXON JR Viet ?Ordered By: ANDI RENE ? MR#: [id number] ?LOC: ??ICCU ? /Sex: ??1975 (36 years), ? Male ? PROCEDURE: Blood Culture ?SOURCE: Blood ? COLLECTED: 12/30/2011 16:51 ?FREE TEXT SOURCE: LAC ? STARTED: 12/30/2011 17:33 ? FINAL REPORT ? Final Report ? Verified:2011 15:07 ? No growth at 5 days. ? PRELIMINARY REPORT ? Preliminary Report ? Verified:2011 23:07 ? No growth at 4 days. ? CERNER MILLENNIUM Blood specimen (specimen) 12/30/2011 4:51 PM EST 12/30/2011 5:33 PM EST Narrative Resulting Agency Comment Spec In Lab Andi Rene MD MICROBIOLOGY - BLOOD ORDERABLES ARIAN CAENNIUM * (ABNORMAL) DIFFERENTIAL, AUTOMATED (12/30/2011 4:25 PM [...] 0.0 0.0 - 0.2 x10(3)/mc L CERNER ROBYENNIUM Immature Gran % 0.20 0.00 - 0.66 % CERNER ROBYENNIUM Comment: Immature granulocytes(IG's)percentage and absolute count will include metamyelocytes, myelocytes, and promyelocytes. Blood smears from CBCs yielding IG's will be scanned manually for concordance. If this scan disagrees with the automated IG or if promyelocytes are noted, a manual differential will be performed. Immature Gran Absolute 0.04 0.00 - 0.05 x10(3)/mc L ARIAN CERDAIUM Blood specimen (specimen) 12/30/2011 4:25 PM EST 12/30/2011 4:43 PM EST Andi Rene MD HEMATOLOGY ORDERABLE S ARIAN CERDAIUM * ANTIBODY SCREEN (12/30/2011 4:25 PM EST) Ab Screen Interp Negative ARIAN CERDAIUM Expires at [id number] on: [id number] ARIAN CERDAIUM Blood specimen (specimen) 12/30/2011 4:25 PM EST 12/30/2011 4:36 PM EST Narrative Resulting Agency Comment Spec In Lab Andi Rene MD BLOOD BANK LAB ORDER RANDELL ARIAN NELSON * ABO/RH TYPING (12/30/2011 4:25 PM EST) ABORH Type A Pos ARIAN CERDAIUM Blood specimen (specimen) 12/30/2011 4:25 PM EST 12/30/2011 4:36 PM EST Narrative Resulting Agency Comment Spec In Lab Andi Rene MD BLOOD BANK LAB ORDER RANDELL Performing Organization Address City/[facility] Co de Phone Number ARIAN CERDAIUM * Glucose, random (12/30/2011 4:25 PM EST) Glucose 126 60 - 199 mg/dL CERNER MILLENNIUM Comment:Diabetes: >=200 mg/d L plus symptoms Blood specimen (specimen) 12/30/2011 4:25 PM EST 12/30/2011 4:43 PM EST Narrative Resulting Agency Comment Spec In Lab Andi Rene MD CHEMISTRY ORDERABLES Performing Organization Address [facility] de Phone Number ARIAN CERDAIUM * (ABNORMAL) CBC (with Diff) (12/30/2011 4:25 PM EST) White Blood Cell 18.8(H) 4.0 - 10.0 x10(3)/mc L CERNER MILLENNIUM Red Blood Cell 4.47(L) 4.63 - 6.08 x10(6)/mc L CERNER MILLENNIUM Hemoglobin 13.7 13.7 - 17.5 gm/dL CERNER MILLENNIUM Hematocrit 39.7(L) 40.0 - 51.0 % CERNER MILLENNIUM Mean Cell Volume 88.8 79.0 - 92.0 fL CERNER MILLENNIUM Mean Cell Hemoglobin 30.6 25.6 - 32.2 pg CERNER MILLENNIUM Mean Cell Hemoglobin Concentration 34.5 32.0 - 36.5 gm/dL CERNER MILLENNIUM Platelet 223 145 - 370 x10(3)/mc L CERNER MILLENNIUM RDW Standard Deviation 42.6 35.0 - 46.0 fL CERNER MILLENNIUM RDW coefficient of variation 13.2 10.9 - 14.4 % CERNER MILLENNIUM Mean Platelet Volume 10.5 9.0 - 12.0 fL CERNER MILLENNIUM Blood specimen (specimen) 12/30/2011 4:25 PM EST 12/30/2011 4:43 PM EST Narrative Resulting Agency Comment Spec In Lab Andi Rene MD HEMATOLOGY ORDERABLE S Performing Organization Address [facility] Co de Phone Number ARIAN NELSON * APTT (12/30/2011 2:08 PM EST) Partial Thromboplastin Time 31 25 - [address] [facility] Comment: Recommended therapeutic PTT range for full dose unfractionated heparin is 80-114 seconds. Blood specimen (specimen) 12/30/2011 2:08 PM EST 12/30/2011 2:27 PM EST Narrative Resulting Agency Comment Spec In Lab Andi Rene MD HEMATOLOGY ORDERABLE S Performing Organization Address [facility] de Phone Number ARIAN NELSON * Cardiac Enzymes (12/30/2011 2:08 PM EST) Troponin-T 0.03 <=0.03 ng/mL [facility] Comment: 0.03 ng/mL: Represents the 99th percentile upper reference limit for normals. >0.03 ng/mL: Elevated cardiac troponin T level indicative of myocardial damage. Diagnosis of acute, evolving or recent VT requires a typical rise and gradual fall [...] consensus document of the Joint Society of Cardiology/[place] College of Cardiology Committee for the redefinition of myocardial infarction. Journal of the [place] College of Cardiology 2000; 36: 959-969] Creatine Kinase 72 0 - 200 unit/L [facility] [address] Blood specimen (specimen) 12/30/2011 2:08 PM EST 12/30/2011 2:27 PM EST Narrative Resulting Agency Comment Spec In Lab Remigio Ceron MD CHEMISTRY ORDERABLES Performing Organization Address [facility] Co de Phone Number [facility] * HIV (12/30/2011 10:18 AM EST) HIV 1/2 Ab Negative [facility] Blood specimen (specimen) 12/30/2011 10:18 AM EST 12/30/2011 10:28 AM EST Narrative Resulting Agency Comment Spec In Lab Andi Rene MD CHEMISTRY ORDERABLES Performing Organization Address [facility] Co de Phone Number [facility] * Echo Transthoracic (Complete) (12/30/2011 9:47 AM EST) EF 55 [facility] Anatomical Region Laterality Modality Other 12/30/2011 Narrative 12/30/2011 10:02 AM EST Procedure: ? Transthoracic Echocardiogram Patient: ? ZACK AUSTIN P ?(Age): 1975(36) Med Rec#: ?[id number] ? Sex: ?M ? Site Loc: ?[facility] ? Ht / Wt: ??180(cm)/124(kg) Pt. Loc: ? Adult Floor ?BSA: ?2.41 Study Date: ?12/30/2011 ? Pt. Type: Inpatient Tape: ? Referring: Remigio Ceron Boat Dock Operator: Benjamin Lundberg Diagnosis: ??Chest pain (786.50) CPT Code(s): ??Spectral Doppler (18848), ??Color Doppler (76629), ??Echo Full (31588), Indication(s): ??Chest Pain Rhythm: HR ?BP ?106/60 [...] report has been electronically signed by: Zak Coley MD ? 12/30/2011 10:01:28 Images reviewed and interpretation verified [facility] Cardiac Ultrasound Laboratory Procedure Note Zak Coley MD - 12/30/2011 Procedure: Transthoracic Echocardiogram Patient: ZACK MILLIGAN(Age): 1975(36) Med Rec#: [id number] Sex: M Site Loc: [facility] Ht / Wt: 180(cm)/124(kg) Pt. Loc: Adult Floor BSA: 2.41 Study Date: 12/30/2011 Pt. Type: Inpatient Tape: Referring: Remigio Ceron Boat Dock Operator: Benjamin Lundberg Diagnosis: Chest pain (786.50) CPT Code(s): Spectral Doppler (36357), Color Doppler (06377), Echo Full (43355), Indication(s): Chest Pain Rhythm: HR BP 106/60 [...] report has been electronically signed by: Zak Coley MD 12/30/2011 10:01:28 Images reviewed and interpretation verified [facility] Cardiac Ultrasound Laboratory Remigio Ceron MD ECHO ORDERABLES * (ABNORMAL) Urinalysis with microscopic (12/30/2011 9:32 AM EST) Glucose, Urine Dipstick Negative Negative mg/dL CERNER [...] Urine Dipstick Clear Clear CERNER MILLENNIUM Specific [place] Urine Automated 1.019 1.002 - 1.030 CERNER [...] In Lab Andi Rene MD URINE ORDERABLES ARIAN CAENNIUM * Rapid Qual Drug Screen, Urine ([facility]) (12/30/2011 9:32 AM EST) U IVAN Screen See Note CERNER MILLENNIUM [...] testing device is being used in the [facility] Chemistry Laboratory. Please contact the chemistry laboratory at [phone] with questions. Urine specimen (specimen) 12/30/2011 9:32 AM EST 12/30/2011 9:45 AM EST Narrative Resulting Agency Comment Spec In Lab Andi Rene MD URINE ORDERABLES ARIAN NELSON * Urine culture Clean Catch Urine (12/30/2011 9:31 AM EST) Urine Culture ? Patient Name: ZACK GEOVANNA REYNA ?Ordered By: ANDI RENE ? MR#: [id number] ?LOC: ??ICCU ? /Sex: ?? 4 (36 years), ? Male ? PROCEDURE: Urine Culture ?SOURCE: U CC ? COLLECTED: 12/30/2011 09:31 ? STARTED: 12/30/2011 10:38 ? FINAL REPORT ? Final Report ? Verified: 08:00 ? No growth (Less than 1,000 cfu/ml). ? ____ ARIAN NELSON Urine specimen obtained by clean catch procedure (specimen) 12/30/2011 9:31 AM EST 12/30/2011 10:38 AM EST Narrative Resulting Agency Comment Spec In Lab Andi Rene MD MICROBIOLOGY - [facility] AL ORDERABLES CERNER MILLENNIUM * (ABNORMAL) DIFFERENTIAL, [...] MD HEMATOLOGY ORDERABLE S Performing Organization Address [facility]/ZIP Co de Phone Number ARIAN CAENNIUM * (ABNORMAL) CBC (with Diff) (12/30/2011 7:07 [...] Platelet Volume 10.6 9.0 - 12.0 fL CERNER MILLENNIUM Blood specimen (specimen) 12/30/2011 7:07 AM EST 12/30/2011 7:18 AM EST Narrative Resulting Agency Comment Spec In Lab Remigio Ceron MD HEMATOLOGY ORDERABLE S Performing Organization Address [facility] Co de Phone Number ARIAN CERDAIUM * Hemoglobin A1c (12/30/2011 7:07 AM EST) Hemoglobin A1c 6.1 4.3 - 6.1 % CERNER MILLENNIUM Estimated Average Glucose 128 mg/dL CERNER MILLENNIUM Comment: eAG equivalents for HbA1c percentages: HbA1c(%) [...] into estimated average glucose values. ??Diabetes Care 2008:31(8):6186-9184. Blood specimen (specimen) 12/30/2011 7:07 AM EST 12/30/2011 7:18 AM EST Narrative Resulting Agency Comment Spec In Lab Remigio Ceron MD CHEMISTRY ORDERABLES Performing Organization Address [facility] de Phone Number [facility] * (ABNORMAL) APTT (12/30/2011 5:45 AM EST) Partial Thromboplastin Time 45(H) 25 - 35 sec [facility] Comment: Recommended therapeutic PTT range for full dose unfractionated heparin is 80-114 seconds. Blood specimen (specimen) 12/30/2011 5:45 AM EST 12/30/2011 6:10 AM EST Narrative Resulting Agency Comment Spec In Lab Andi Rene MD HEMATOLOGY ORDERABLE S Performing Organization Address [facility] de Phone Number [facility] * (ABNORMAL) Glucose, fasting (12/30/2011 5:45 AM EST) Glucose Fasting 108(H) 65 - 99 mg/dL [facility] Comment: ?Fasting* Glucose Interpretive Criteria Normal [...] of Diabetes Mellitus, Position Statement from the [place] Diabetes Association. ??Diabetes Care, Volume 33, Supplement 1, Nov 2009 Blood specimen (specimen) 12/30/2011 5:45 AM EST 12/30/2011 6:10 AM EST Narrative Resulting Agency Comment Spec In Lab Remigio Ceron MD CHEMISTRY ORDERABLES Performing Organization Address [facility] Co de Phone Number [facility] * (ABNORMAL) Triglyceride (12/30/2011 5:45 AM EST) Triglyceride 245(H) <=149 mg/dL [facility] Comment: Reference Range: Normal triglycerides: ??<150 mg/dL Borderline high: ??150-199 mg/dL High: ??200-499 mg/dL Very high: ??>jk=650 mg/dL ELISEO 2001; 28519):[id number] Blood specimen (specimen) 12/30/2011 5:45 AM EST 12/30/2011 6:10 AM EST Narrative Resulting Agency Comment Spec In Lab Remigio Ceron MD CHEMISTRY ORDERABLES Performing Organization Address [facility] Co de Phone Number [facility] * (ABNORMAL) HDL/Cholesterol Profile (12/30/2011 5:45 AM EST) Cholesterol, Total 170 <=199 mg/dL [facility] Comment: Recommendations of the NCEP Adult Treatment Panel for the following risk cutoff thresholds for the [place] population: Desirable: <200 mg/dL Borderline High: 200-239 mg/dL High: > or = 240 mg/dL HDL Cholesterol 36(L) >=40 mg/dL [facility] Comment: Reference range: ??Low HDL: ?? < 40 mg/dL ??Normal: ?40-60 mg/dL ??Desirable: > 60 mg/dL ELISEO 2001; 285(19):0175-4341 Cholesterol/HDL Ratio 4.7 ratio [facility] Comment: A Cholesterol to HDL ratio below 4:1 is desirable. ??Studies suggest that increased CAD risk occurs at ratios above 5 for females and above 6 for men. ? [place] Heart Association ??(http://www.americanheart.org) ? Jazmine Int Med, 1994; 121:641 ? AM J Med, 1998; 105(1A):48S Blood specimen (specimen) 12/30/2011 5:45 AM EST 12/30/2011 6:10 AM EST Narrative Resulting Agency Comment Spec In Lab Remigio Ceron MD CHEMISTRY ORDERABLES [facility] * (ABNORMAL) LDL Cholesterol, Direct (12/30/2011 5:45 AM EST) LDL Cholesterol, Direct 110(H) <=99 mg/dL [facility] Comment: The National Cholesterol Education Program (NCEP) has set the following guidelines for LDL Cholesterol: Reference range: ?? Optimal: ?<100 mg/dL ?? Near Optimal/Above Optimal: ?? 100-129 mg/dL ?? Borderline high: ?130-159 mg/dL ?? High: ? 160-189 mg/dL ?? Very high: ?>tf=601 mg/dL ELISEO 2001: 285(19):0500-1041 Blood specimen (specimen) 12/30/2011 5:45 AM EST 12/30/2011 6:10 AM EST Narrative Resulting Agency Comment Spec In Lab Remigio Ceron MD CHEMISTRY ORDERABLES Performing Organization Address City/[facility] Co de Phone Number ARIAN NELSON * (ABNORMAL) Cardiac Enzymes (12/30/2011 5:45 AM EST) Troponin-T 0.05(H) <=0.03 ng/mL ARIAN NELSON Comment: 0.03 ng/mL: Represents the 99th percentile upper reference limit for normals. >0.03 ng/mL: Elevated cardiac troponin T level indicative of myocardial damage. Diagnosis of acute, evolving or recent VT requires a typical rise and gradual fall [...] consensus document of the Joint Society of Cardiology/[place] College of Cardiology Committee for the redefinition of myocardial infarction. Journal of the [place] College of Cardiology 2000; 36: 959-969] Creatine [...] SCAN, PERIPHERAL BLOOD (12/29/2011 11:29 PM EST) Pathologist [facility] Plat estimate Normal CERNER MILLENNIUM RBC Morphology Normal CERNE R MILLENNIUM Blood specimen (specimen) 12/29/2011 11:29 PM EST 12/29/2011 11:35 PM EST Narrative Resulting Agency Comment Spec In Lab Remigio Ceron MD HEMATOLOGY ORDERABLE S CERBRIAN CAENNIUM * (ABNORMAL) DIFFERENTIAL, AUTOMATED (12/29/2011 11:29 PM [...] EST Remigio Ceron MD HEMATOLOGY ORDERABLE S [facility] * (ABNORMAL) Cardiac Enzymes (12/29/2011 11:29 PM EST) Troponin-T 0.08(H) <=0.03 ng/mL CERNER MILLENNIUM Comment: 0.03 ng/mL: Represents the 99th percentile upper reference limit for normals. >0.03 ng/mL: Elevated cardiac troponin T level indicative of myocardial damage. Diagnosis of acute, evolving or recent VT requires a typical rise and gradual fall [...] consensus document of the Joint Society of Cardiology/[place] College of Cardiology Committee for the redefinition of myocardial infarction. Journal of the [place] College of Cardiology 2000; 36: 959-969] Creatine Kinase 86 0 - 200 unit/L CERNER MILLENNIUM Blood specimen (specimen) 12/29/2011 11:29 PM EST 12/29/2011 11:34 PM EST Narrative Resulting Agency Comment Spec In Lab Remigio Ceron MD CHEMISTRY ORDERABLES Performing Organization Address [facility] Co de Phone Number ARIAN CERDAIUM * Prothrombin Time (12/29/2011 11:29 PM EST) Prothrombin Time 13.2 11.9 - 14.7 sec CERNER MILLENNIUM Comment: [facility] Transfusion Committee Guidelines: INR less than 2.0, PTT less than OR equal to 43.5 seconds, or Fibrinogen greater than or equal to 100 mg/dl indicate adequate procoagulant activity for hemostasis in patients without underlying bleeding disorders. International Normalization Ratio 1.0 0.9 - 1.1 CERNER MILLENNIUM Blood specimen (specimen) 12/29/2011 11:29 PM EST 12/29/2011 11:34 PM EST Narrative Resulting Agency Comment Spec In Lab Remigio Ceron MD HEMATOLOGY ORDERABLE S Performing Organization Address [facility] Co de Phone Number ARINA NELSON * Hepatic Function Panel (12/29/2011 11:29 PM [...] Direct 0.1 0.0 - 0.3 mg/dL CERNER ROBYENNIUM Blood specimen (specimen) 12/29/2011 11:29 PM EST 12/29/2011 11:34 PM EST Narrative Resulting Agency Comment Spec In Lab Remigio Ceron MD CHEMISTRY ORDERABLES ARIAN CERDAIUM * pro-Brain Natriuretic Peptide (12/29/2011 11:29 PM EST) NT-proBNP 114 <=125 pg/mL CERBRIAN CAENNIUM Blood specimen (specimen) 12/29/2011 11:29 PM EST 12/29/2011 11:34 PM EST Narrative Resulting Agency Comment Spec In Lab Remigio Ceron MD CHEMISTRY ORDERABLES Performing Organization Address City/[facility]/ZIP Co de Phone Number ARIAN CAENNIUM * TSH (12/29/2011 11:29 PM EST) Thyroid Stimulating Hormone 0.39 0.27 - 4.20 mcIU/mL ARIAN CAENNIUM Blood specimen (specimen) 12/29/2011 11:29 PM EST 12/29/2011 11:34 PM EST Narrative Resulting Agency Comment Spec In Lab Remigio Ceron MD CHEMISTRY ORDERABLES Performing Organization Address City/[facility] Co de Phone Number ARIAN CAENNIUM * Phosphorus (12/29/2011 11:29 PM EST) Phosphorus 3.1 2.5 - 4.5 mg/dL CERBRIAN CAENNIUM Blood specimen (specimen) 12/29/2011 11:29 PM EST 12/29/2011 11:34 PM EST Narrative Resulting Agency Comment Spec In Lab Remigio Ceron MD CHEMISTRY ORDERABLES ARIAN CAENNIUM * Magnesium (12/29/2011 11:29 PM EST) Magnesium 0.83 0.69 - 1.07 mmol/L CERNER MILLENNIUM Blood specimen (specimen) 12/29/2011 11:29 PM EST 12/29/2011 11:34 PM EST Narrative Resulting Agency Comment Spec In Lab Remigio Ceron MD CHEMISTRY ORDERABLES CERNER MILLENNIUM * (ABNORMAL) Basic Metabolic Panel (non-fasting) (12/29/2011 [...] In Lab Remigio Ceron MD CHEMISTRY ORDERABLES CERNER MILLENNIUM * (ABNORMAL) CBC (with Diff) (12/29/2011 11:29 [...] Platelet Volume 10.5 9.0 - 12.0 fL CERNER MILLENNIUM Blood specimen (specimen) 12/29/2011 11:29 PM EST 12/29/2011 11:34 PM EST Narrative Resulting Agency Comment Spec In Lab Remigio Ceron MD HEMATOLOGY ORDERABLE S Performing Organization Address [facility] de Phone Number [facility] * APTT (12/29/2011 11:29 PM EST) Partial Thromboplastin Time 34 25 - 35 sec [facility] Comment: Recommended therapeutic PTT range for full dose unfractionated heparin is 80-114 seconds. Blood specimen (specimen) 12/29/2011 11:29 PM EST 12/29/2011 11:34 PM EST Narrative Resulting Agency Comment Spec In Lab Remigio Ceron MD HEMATOLOGY ORDERABLE S Performing Organization Address [facility] de Phone Number [facility] * EKG 12 Lead (12/29/2011 11:13 PM EST) Ventricular rate 108 BPM MUSE SYSTEM Atrial Rate 108 BPM MUSE SYSTEM P-R Interval 150 ms MUSE SYSTEM QRS Duration 106 ms MUSE SYSTEM Q-T Interval 340 ms MUSE SYSTEM QTC Calculated (Bezet) 455 ms MUSE SYSTEM Calculated P [place] 19 degrees MUSE SYSTEM Calculated R [place] 31 degrees MUSE SYSTEM Calculated T [place] 51 degrees MUSE SYSTEM INTERPRETATION Sinus tachycardia Nonspecific T wave abnormality Abnormal ECG No previous ECGs available Confirmed by Madi FORD MD, Nathaniel ([id number]) on 12/30/2011 2:22:07 PM MUSE SYSTEM 12/29/2011 11:1 3 PM EST 12/30/2011 2:22 PM EST Remigio Ceron MD ECG ORDERABLES Performing Organization Address [facility] Co de Phone Number MUSE SYSTEM documented in this encounter Visit Diagnoses Not on filedocumented in this encounter Administered Medications Inactive Administered Medications - up to 3 most recent administrations Medication Order MAR Action Action Date Dose Rate Site calcium chloride injection ONCE PRN, Starting on Wed01/04/12 at 1448, Until Wed01/04/12 at 1618, Intra-Operative (Intra-Procedure) Given 01/04/2012 2:48 PM EST 1 g cardioplegic solution (PLEGISOL) induction solution ONCE PRN, Starting on Wed01/04/12 at 1459, Until Wed01/04/12 at 1618, Intra-Operative (Intra-Procedure) Given 01/04/2012 2:59 PM EST 300 mLs cardioplegic solution (PLEGISOL) maintenance solution ONCE PRN, Starting on Wed01/04/12 at 1500, Until Wed01/04/12 at 1618, Intra-Operative (Intra-Procedure) Given 01/04/2012 3:00 PM EST 200 mLs cardioplegic solution (PLEGISOL) reperfusion solution ONCE PRN, Starting on Wed01/04/12 at 1501, Until Wed01/04/12 at 1618, Intra-Operative (Intra-Procedure) Given 01/04/2012 3:01 PM EST 100 mLs ceFURoxime (ZINACEF) injection 1.5 g Administer over 60 Minutes, ONCE PRN, Starting on Wed01/04/12 at 1247, Until Wed01/04/12 at 1618, Attach to 100mL of sodium chloride 0.9% Mini-Bag Plus, Intra-Operative (Intra-Procedure), Routine Given 01/04/2012 12:47 PM EST 1.5 g ceFURoxime (ZINACEF) injection 1.5 g Administer over 60 Minutes, ONCE PRN, Starting on Wed01/04/12 at 1409, Until Wed01/04/12 at 1618, Attach to 100mL of sodium chloride 0.9% Mini-Bag Plus, Intra-Operative (Intra-Procedure), Routine Given 01/04/2012 2:09 PM EST 1 g ceFURoxime (ZINACEF) injection 1.5 g Administer over 60 Minutes, ONCE PRN, Starting on Wed01/04/12 at 1500, Until Wed01/04/12 at 1618, Attach to 100mL of sodium chloride 0.9% Mini-Bag Plus, Intra-Operative (Intra-Procedure), Routine Given 01/04/2012 3:00 PM EST 1.5 g cellulose, oxidized (SURGICEL NU-KNIT) 6 x 9 pad ONCE PRN, Starting on Wed01/04/12 at 1336, Until Wed01/04/12 at 1618, Intra-Operative (Intra-Procedure), Routine Given 01/04/2012 1:36 PM EST 1 each electrolyte-R (PH 7.4) (NORMOSOL) injetion ONCE PRN, Starting on Wed01/04/12 at 1506, Until Wed01/04/12 at 1618, Intra-Operative (Intra-Procedure) Given 01/04/2012 3:06 PM EST 1,600 mLs heparin (porcine) injection ONCE PRN, Starting on Wed01/04/12 at 1505, Until Wed01/04/12 at 1618, Intra-Operative (Intra-Procedure), Routine Given 01/04/2012 3:05 PM EST 64,000 Units Lidocaine (PF) 20 mg/mL (2 %) ONCE PRN, Starting on Wed01/04/12 at 1448, Until Wed01/04/12 at 1618, Intra-Operative (Intra-Procedure), Routine Given 01/04/2012 2:48 PM EST 200 mg mannitol 100 g/500 mL (20%) infusion ONCE PRN, Starting on Wed01/04/12 at 1503, Until Wed01/04/12 at 1618, Intra-Operative (Intra-Procedure) Given 01/04/2012 3:03 PM EST 100 g protamine injection ONCE PRN, Starting on Wed01/04/12 at 1501, Until Wed01/04/12 at 1618, Intra-Operative (Intra-Procedure), Routine Given 01/04/2012 3:01 PM EST 500 mg documented in this encounter Active and [...] Michelle Chong RN)1800 (Given - Provider: Michelle Chong, DAVID) 0000 (Given - Provider: Hermila Dumas RN)0600 (Given - Provider: Hermila Dumas RN)1200 (Given - Provider: Michelle Chong RN)1800 (Given - Provider: Michelle Chong RN)2351 (Given - Provider: Hermila Dumas, DAVID) 0600 (Given - Provider: Hermila Dumas RN)1200 [...] dose (after last modification) on Wed01/07/12 at 1700, Until Discontinued 1700 (Given - [...] 0900 (Given - Provider: Michelle Chong RN) 09 (Given - Provider: Michelle Chong RN) 09 (Not Given - Provider: Sangita Self RN [...] on Wed01/05/12 at 1200, Until Discontinued, Routine 09 (Given - Provider: Michelle Chong RN)2008 (Given - Provider: Hermila Dumas RN) 09 (Given - Provider: Michelle Chong [...] Provider: Michelle Chong RN)2000 (Given - Provider: Herimla Dumas RN) 0315 (Given - Provider: Hermila Dumas RN)1115 (Given - Provider: Sangita Self RN) venlafaxine (EFFEXOR) tablet 75 mg (CANCELED) 75 mg, Oral, DAILY, First dose on Wed01/06/12 at 0900, Until Discontinued, Routine 2009 (Given - Provider: Hermila Dumas RN) 2000 (Given - Provider: Hermila Dumas RN) PRN Medication Order 01/06/2012 01/07/2012 [...] Sangita Self RN)1230 (Given - Provider: Sangita Self, DAVID) Linked Groups Order Group 1: aspirin chewable [...] Routine documented in this encounter Care Teams School Aide Relationship Specialty Start Date End Date Patric Al MD PCP - General 12/29/11 02/26/19 documented as of this encounter
--- OUTSIDE RECORDS SUMMARY | 2024-07-14 14:38 | XMS_ITS | Encounter Summary ---
Author Organization [facility] [place] [address] Care Team Providers Care In Home Sales Representative Name Role Phone Guanako Gusman MD Primary Care Provider [phone] Encounter Details Date Type Department Care Team (Late st Contact Info) Description 12/31/2011 2:00 PM EST Office Visit [place] [phone] Dai Iglesias, [place] Social History Tobacco Use Types Packs/Day Years [...] on filedocumented in this encounter Care Teams In Home Sales Representative Relationship Specialty Start Date End Date Guanako Gusman MD PCP - General 12/29/11 02/26/19 documented as of this encounter
--- OUTSIDE RECORDS SUMMARY | 2024-07-14 14:38 | XMS_ITS | Encounter Summary ---
Author Organization [facility] Address [facility] [place] [address] Care Team Providers Care Ophthalmic Dispenser Name Role Phone Guanako Gusman MD Primary Care Provider [phone] Encounter Details Date Type Department Care Team (Late st Contact Info) Description 01/04/2012 12:13 PM EST Anesthesia Event [place] [phone] Rodrigo Montgomery MD [facility] [place] [address] Anesthesia Record Procedure Summary Procedure Name Responsible Anesthesiologist Anesthesia Start Time Anesthesia Stop Time ENDOSCOPIC HARVEST VEIN(S) FOR CABG (WRVU 0.31) (Right: Leg) Rodrigo Montgomery MD 01/04/12 1213 01/04/12 1616 Events Date Time Event Comment 01/04/2012 1137 1213 Start 1616 Stop Meds * Agents No agents on file. * Blood No blood administrations on file. Lines, Drains, and Airways Type Details Placement Removal (RETIRED) Peripheral IV Line - Single Lumen 01/03/12; 0113; 01/08/12; 1010 01/03/12 0113 by Reji Garza RN 01/08/12 1010 by Melia Brown RN (RETIRED) Arterial LIne 01/04/12; 01/05/12; 1026 01/04/12 0000 by Akanksha Tracy RN 01/05/12 1026 by Jeannine Pichardo RN Urethral Catheter 01/04/12; indwelling catheter w/ core temperature probe; 100% silicone; 16; inserted; 1; drainage bag to dependent drainage (placed by Mari); 01/06/12; 0315 01/04/12 0000 by Akanksha Tracy RN 01/06/12 0315 by Hermila Barrera RN Pulmonary Artery Catheter - Single Lumen 01/04/12; Right; internal jugular vein; (placed by /Ruiz); 01/04/12; 22001/04/12 0000 by Akanksha Tracy RN 01/04/12 2205 by Grace Kuhn RN (RETIRED) Central Line Assessment/Interventio n - single lumen 01/04/12 0000 by Akanksha Tracy RN 01/05/12 1026 by Jeannine Pichardo RN Drain/Device Site 01/04/12; Right (7mm sabrina drain w bulb reservoir); leg; 01/05/12; 0200 01/04/12 0000 by Akanksha Tracy RN 01/05/12 0200 by Grace Kuhn RN Incision 01/04/12; chest; 07/06/22 (LDA cleanup utility RA#[id number]); 1715 (LDA cleanup utility RA#[id number]) 01/04/12 0000 by Akanksha Tracy RN 07/06/22 1715 by Perico Hercules Incision 01/04/12; leg (proxi mal to knee ;#11 stab incision to rt.groin); 07/06/22 (LDA cleanup utility RA#[id number]); 1715 (LDA cleanup utility RA#[id number]) 01/04/12 0000 by Akanksha Tracy RN 07/06/22 1715 by Perico Hercules Chest Tube 01/04/12; 01/05/12; 1500 01/04/12 0000 by Akanksha Tracy RN 01/05/12 1500 by Tavia Galindo RN Chest Tube 01/04/12; 01/05/12; 1500 01/04/12 0000 by Akanksha Tracy RN 01/05/12 1500 by Tavia Galindo RN (RETIRED) Non-Surgical Airway Size: 8 mm; Removal Date: 01/04/12; Removal Time: 191301/04/12 0000 by Vangie Castro, AUTOMOTIVE SERVICE MANAGEMENT TEACHER 01/04/121913 by Bhumi Goldberg RCP documented in this encounter Social History Tobacco [...] of this encounter OR Notes * Anesthesia Postprocedure Evaluation - Reny Melchor - 01/06/2012 8:17 AM EST Patient: Lux Dixon JrFlorencio Procedure(s) Performed: ENDOSCOPIC HARVEST VEIN(S) FOR CABG; @CABG, VENOUS & ARTERIAL GRAFT;SINGLE VEIN GRAFT Patient location: [facility] Surgical Floor Post-op pain: Adequate analgesia Post-op nausea: no nausea or vomiting Last Vitals: Filed Vitals: 01/06/12 0737 BP: 108/65 Pulse: 85 Temp: 36.8 ??C (98.2 ??F) Resp: 22 Post-op cardiovascular and respiratory status: is stable Level of consciousness: awake, alert and oriented Complications: no apparent complications, tolerated the procedure well and no evidence of recall Fluid Status: normal * Anesthesia Preprocedure Evaluation - Rodrigo Montgomery MD - 01/03/2012 11:26 AM EST Anesthesia Evaluation No hx of anesthetic complications Airway Mallampati: II TM distance: >3 FB Neck ROM: full Dental Comment: No loose teeth, multiple chipped teeth Pulmonary (+) recent URI, (-) pneumonia, COPD and asthma ROS comment: +TOB Cardiovascular (+) hypertension, past SC, CAD, angina, WHITTAKER, (-) valvular problems/murmurs and CHF ROS comment: Echo 12/30/11: 1. The [...] on filedocumented in this encounter Care Teams Ophthalmic Dispenser Relationship Specialty Start Date End Date Guanako Gusman MD PCP - General 12/29/11 02/26/19 documented as of this encounter
--- OUTSIDE RECORDS SUMMARY | 2024-07-14 14:39 | XMS_ITS | Encounter Summary ---
Author Organization [facility] Address [address] [place] [address] Care Team Providers Care Station Master Name Role Phone Unavailable Primary Care Provider Unavailabl e Encounter Details Date Type Department Care Team (Latest Contact Info) Description 03/09/2008 10:00 EDT - 03/09/2008 11:59 EDT Hospital Encounter [facility] [address] [place] [address] AttarianWil MD [address] [address] Discharge Disposition: Auto Discharge Social [...] QUIANA, GEOVANNA P ? Accession #: ? [id number] ? : ? 1975 (Age: 34) ??M [...] tissue with a ? pinpoint lumen. ??Two financial foundations representative cross sections are submitted as (A). ? Received in formalin labelled Quiana Geovnana and L vas def is a 0.8 cm in ? length by 0.2 cm in diameter firm, white, focally light maynard tubular segment of ?? tissue with a pinpoint lumen. ??Two financial foundations representative cross sections of the specimen are submitted as (B). (Mary Anne Cheng)/mpl ? End of Report ? [facility] 10/17/2009 10/18/2009 9:3 4 EST Guanako Gusman MD PATHOLOGY ORDERABLES [facility] [address] [place] [address] * ORBITS FOR FOREIGN BODY (03/09/2008 10:17 EDT) Anatomical Region Laterality Modality Other 03/09/2008 10:1 7 EDT Narrative 04/21/2009 11:08 EDT acc wet read please call [phone] with results metallurgical specialist needs orbits prior to mri ORBITS FOR FOREIGN BODY ??March 09, 2008 10:17:00 AM Signs and Symptoms: ??acc wet read please call [phone] with results metallurgical specialist needs orbits prior to mri. Two views of the orbits show no metallic foreign body. Procedure Note Song Hall MD - 04/21/2009 acc wet read please call [phone] with results metallurgical specialist needs orbits prior to mri ORBITS FOR FOREIGN BODY March 09, 2008 10:17:00 AM Signs and Symptoms: acc wet read please call [phone] with results metallurgical specialist needs orbits prior to mri. Two views of the orbits show no metallic foreign body. Wil Llanos Attarian MD [facility] NG ORDERABLES documented in this encounter Visit Diagnoses Not on filedocumented in this encounter
--- OUTSIDE RECORDS SUMMARY | 2024-07-14 14:39 | XMS_ITS | Encounter Summary ---
Author Organization [facility] Address [address] [place] [address] Care Team Providers Care Car Usher Name Role Phone Cameron Patel HEALTH SERVICES ADMINISTRATOR Primary Care Provider [phone] Encounter Details Date Type Department Care Team (Late st Contact Info) Description 11/23/2005 Office Visit [facility] - Maple conversion [address] [place] [address] Jorge Urrutia MD [address] [place] [address] Social History Tobacco Use Types Packs/Day Years Used Date Smoking Tobacco: Never Assessed Sex and Gender Information Value Date Recorded Sex Assigned at Not on file Gender Identity Not on file Sexual Orientation Not on file documented as of this encounter Progress Notes * Jorge Urrutia MD - 01/07/20102024 EST [facility] - Physician Summary Registration Date/Time: 11/23/2005 14:17 [...] pain. No fever or nasal discharge. Treatment SCALE TESTER: Took Tylenol and ibuprofen. Symptoms did not [...] filling fell out. Called dentist, Dr. Glass [facility]- couldn't get appt untill next week.). [...] followup. Patientverbalized understanding. Written instructions provided in Greek. The patient was discharged home. The patient left the Emergency Department ambulatory and via private vehicle. Patient driving. Patient has no belongings. Departure time: 15:23. --1523 Annette Collazo R.N. Locked/Released at 11/23/2005 15:23 by Annette Collazo R.N. documented in this encounter Plan of Treatment Not on file documented as of this encounter Visit Diagnoses Not on filedocumented in this encounter Care Teams Car Usher Relationship Specialty Start Date End Date Cameron Patel NP [address] [place] [place] [address] PCP - General 10/22/09 documented as of this encounter
--- OUTSIDE RECORDS SUMMARY | 2024-07-14 14:39 | XMS_ITS | Encounter Summary ---
Author Organization [facility] Address [address] [place] [address] Care Team Providers Care Oil Well Fishing Tool Operator Name Role Phone Unavailable Primary Care Provider Unavailabl e Encounter Details Date Type Department Care Team (Late st Contact Info) Description 03/09/2008 Before PRISM Converted Visit (Maple) [facility] - Maple conversion [address] [place] [address] Wil Tay MD [address] [address] Social History Tobacco Use Types Packs/Day Years Used Date Smoking Tobacco: Never Assessed Sex and Gender Information Value Date Recorded Sex Assigned at Not on file Gender Identity Not on file Sexual Orientation Not on file documented as of this encounter Progress Notes * Wil Tay* MD SANTINO - 08/09/2009 0909 EDT March 09, 2008 Anna Hoang MD [facility] [address] [address] Dear Anna: Thank you for referring Mr. [...] and an EEG that was normal in [place], [place]. He currently is taking a [...] He denies symptoms of restless legs. His [place] sleepiness is 23/24. PAST MEDICAL HISTORY Hypertension. He has just recently developed hypertension. He did not respond well to lisinopril, so he is currently on Cozaar and this has been helping his blood pressure some. It has not worsened his cataplexy any. ALLERGIES No known drug allergies. MEDICATIONS Cozaar, methylphenidate, amphetamine, clomipramine, Provigil, Effexor, Viagra, Rolaids, and Tylenol. SOCIAL HISTORY He has a 66-tfas-lvic history of smoking, which is a lot for a young man like him. He drinks 8-12 cups of coffee a day. No other caffeine intake. No alcohol. No drug use. 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 Coordination: Normal irlsqm-os-wvopcl and anngft-ao-nndg and rapid alternating movements. DTRs are +2 [...] his hometown. 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, [place] [address]* documented in this encounter Plan of Treatment Not on file documented as of this encounter Visit Diagnoses Not on filedocumented in this encounter
--- OUTSIDE RECORDS SUMMARY | 2024-07-14 14:39 | XMS_ITS | Referral Summary ---
Author Organization [facility] Address [address] [place] [address] Care Team Providers Care Drafter Construction Name Role Phone Jorge Cameron Viet OPHTHALMIC SURGEON Primary Care Provider [phone] Medications Medication Sig Dispensed Refills Start Date [...] C Antibody Negative Negative 12/04/2022 8:56 EST [facility] Blood VENOUS BLOOD / Unknown 12/02/2022 11:40 EST 12/03/2022 17:36 EST Provider Outr Resulting Lab CHEMISTRY & BLOOD GAS ORDERABLES [facility] [address] [place] [address] from Last 3 Months or Most Recently Relevant to Health Maintenance Care Teams Drafter Construction Relationship Specialty Start Date End Date Cameron Patel, OPHTHALMIC SURGEON [address] [facility] [place] [phone] PCP - General 10/22/09
--- OUTSIDE RECORDS SUMMARY | 2024-07-14 14:39 | XMS_ITS | Encounter Summary ---
Author Organization [facility] Address [address] [place] [address] Care Team Providers Care Sample Grader Name Role Phone Jorge Cameron Llanos TOUR COORDINATOR Primary Care Provider [phone] Encounter Details Date Type Department Care Team (Late st Contact Info) Description 12/03/2022 Lab Requisition [facility] Pathology & Laboratory Medicine - [address] [address] Outr Resulting Lab, Provider Social History Tobacco [...] 4th Generation Negative Negative 12/04/2022 9:22 EST [facility] Comment:If acute HIV-1 infec tion is suspected in a high risk patient, submit plasma specimen for HIV-1 RNA quantitation test. Blood VENOUS BLOOD / Unknown 12/02/2022 11:40 EST 12/03/2022 17:37 EST Narrative [facility] - 12/04/2022 9:22 EST Fourth Generation assay performed on the Siemens OPTIMIZERxaur XPT. Provider Outr Resulting Lab IMMUNOLOGY A ND SEROLOGY ORDERABLES [facility] [address] [place] [address] documented in this encounter Visit Diagnoses Not on filedocumented in this encounter Care Teams Sample Grader Relationship Specialty Start Date End Date Cameron Patel, TOUR COORDINATOR [address] [facility] [place] [phone] PCP - General 10/22/09 documented as of this encounter
--- OUTSIDE RECORDS SUMMARY | 2024-07-14 14:39 | XMS_ITS | Encounter Summary ---
Author Organization [facility] Address [address] [place] [address] Care Team Providers Care Programming Equipment Operator Name Role Phone Cameron Patel RESEARCH ATTORNEY Primary Care Provider [phone] Encounter Details Date Type Department Care Team (Late st Contact Info) Description 12/03/2022 Lab Requisition [facility] Pathology & Laboratory Medicine - [address] [address] Outr Resulting Lab, Provider Social History Tobacco [...] C Antibody Negative Negative 12/04/2022 8:56 EST [facility] Blood VENOUS BLOOD / Unknown 12/02/2022 11:40 EST 12/03/2022 17:36 EST Provider Outr Resulting Lab CHEMISTRY & BLOOD GAS ORDERABLES [facility] [address] [place] [address] documented in this encounter Visit Diagnoses Not on filedocumented in this encounter Care Teams Programming Equipment Operator Relationship Specialty Start Date End Date Cameron Patel, RESEARCH ATTORNEY [address] [place] [phone] PCP - General 10/22/09 documented as of this encounter
--- OUTSIDE RECORDS SUMMARY | 2024-07-14 14:39 | XMS_ITS | Encounter Summary ---
Author Organization [facility] Address [address] [place] [address] Care Team Providers Care Communications Department Head Name Role Phone Unavailable Primary Care Provider Unavailabl e Encounter Details Date Type Department Care Team (Late st Contact Info) Description 11/23/2005 14:17 [facility] Hospital Encounter [address] [address] Jorge Urrutia MD [address] [place] [phone] Social History Tobacco Use Types Packs/Day Years [...]
--- OUTSIDE RECORDS SUMMARY | 2024-07-14 14:39 | XMS_ITS | Clinical Summary ---
Author Organization [facility] Address [address] [place] [address] Care Team Providers Care Automotive Hardware Engineer Name Role Phone JorgeCameron Viet SEMICONDUCTOR WAFERS TESTER Primary Care Provider [phone] Medications Medication Sig Dispensed Refills Start Date [...] C Antibody Negative Negative 12/04/2022 8:56 EST [facility] Blood VENOUS BLOOD / Unknown 12/02/2022 11:40 EST 12/03/2022 17:36 EST Provider Outr Resulting Lab CHEMISTRY & BLOOD GAS ORDERABLES [facility] [address] [place] [address] from Last 3 Months or Most Recently Relevant to Health Maintenance Care Teams Automotive Hardware Engineer Relationship Specialty Start Date End Date Cameron Patel, SEMICONDUCTOR WAFERS TESTER [address] [place] [address] PCP - General 10/22/09
--- OUTSIDE RECORDS SUMMARY | 2024-07-14 14:39 | XMS_ITS | Encounter Summary ---
Author Organization [facility] Address [address] [place] [address] Care Team Providers Care Tip Bander Name Role Phone Jorge Cameron Llanos EXECUTIVE COMMUNICATIONS MANAGER Primary Care Provider [phone] Encounter Details Date Type Department Care Team (Late st Contact Info) Description 10/02/2020 Lab Requisition [facility] Pathology & Laboratory Medicine - [address] [address] Outr Resulting Lab, Provider Social History Tobacco [...] 4th Generation Negative Negative 10/22/2020 13:59 EST [facility] Comment: If acute HIV-1 infection is suspected in a high risk ??patient, submit plasma specimen for HIV-1 RNA quantitation test. Fourth Generation assay performed on the Siemens Centaur. Blood VENOUS BLOOD / Unknown 09/19/2020 16:00 EST 10/22/2020 7:12 EST Provider Outr Resulting Lab IMMUNOLOGY A ND SEROLOGY ORDERABLES [facility] [address] [place] [address] documented in this encounter Visit Diagnoses Not on filedocumented in this encounter Care Teams Tip Bander Relationship Specialty Start Date End Date Cameron Patel, EXECUTIVE COMMUNICATIONS MANAGER [address] [facility] [place] [phone] PCP - General 10/22/09 documented as of this encounter
--- OUTSIDE RECORDS SUMMARY | 2024-07-14 14:39 | XMS_ITS | Encounter Summary ---
Author Organization [facility] Address [address] [place] [address] Care Team Providers Care Cardiac Care Nurse Name Role Phone Cameron Patel INCOME TAX ANALYST Primary Care Provider [phone] Encounter Details Date Type Department Care Team (Late st Contact Info) Description 05/27/2010 Abstract Used for ABSTRACTING Data [phone] Cameron Patel INCOME TAX ANALYST [address] [facility] [address] Social History Tobacco Use Types [...] mouth. added in this encounter Care Teams Cardiac Care Nurse Relationship Specialty Start Date End Date Cameron Patel NP [address] [place] [address] PCP - General 10/22/09 documented as of this encounter
--- OUTSIDE RECORDS SUMMARY | 2024-07-14 14:39 | XMS_ITS | Encounter Summary ---
Author Organization [facility] Address [facility] [place] [address] Care Team Providers Care Real Estate Paralegal Name Role Phone Patric Al MD Primary Care Provider [phone] Encounter Details Date Type Department Care Team (Late st Contact Info) Description 12/30/2011 9:30 AM EST - 12/30/2011 10:51 AM EST Surgery Pest Control [place] [id number] Sarthak Oliveros MD [facility] [place] [address] CARDIAC CATHETERIZATION Social History Tobacco Use Types [...] 12:11 PM EST Geovanna Dixon Jr. 1975 [id number] New Diagnosis of Pre-Diabetes For discharge should [...] Some considerations about using metformin in Prediabetics: [place] Diabetes Prevention Program (DPP) as well as other minor studies and meta-analyses has convincingly demonstrated the efficacy of metformin in this patient group [pre-diabetics]. In addition, results of the 10 year DPP follow up have recently been published, demonstrating the fpc safety and sustainability of metformin treatment benefits [...] - will be starting Cardiac rehab at [facility], encouraged to increase physical activity as advised by cardiologists Weight Loss - A 7% weight loss could significantly improve his BG control Tobacco cessation - There is growing evidence that cigarette smokers are more prone than the general population to develop T2DM. Increase in insulin resistance with tobacco use. Darcie Lange APRN [facility] Endocrinology Diabetes Management [phone] * Patient Instructions* Ricky Graham PA - [...] Anne Tovar and/or the Cardiothoracic Surgery Physician Roller Skate Assembler Team may be reached at . Activity [...] Dr. Inna Tovar. You may use a Rowena Track or treadmill but avoid any pulling [...] friends, go to a movie, go to roman catholic, etc. Heavy activities: No hunting, skiing, jogging, [...] would be to continue to go [place]. He has quit this way before and [...] only 10% of those who quit [place] are able to be successful. The calculated savings once he quits smoking would be $54 a week, $234 a month, and $2803 a year. If he quits now his savings will be $28,030 in 10 years. The patient was provided with a [facility] Smoking Cessation packet and the contents have been reviewed with him. The patient now has the Quit line number for [place] and has also been encouraged to use this ifneeded for support. In addition he was in agreement with a referral to the [place] Quitnetwork and a referral was faxed to [...] given to patient. Discharge summary faxed to [facility] and receipt confirmed via phone. Patient discharged [...] an outpatient basis Equipment needs: none ADEBAYO Cunningham WILLAMVANESSAJASIEL, XIN Pager: [phone] Physical Therapy Rehabilitation Department * Michelle Chong [...] services. Patient would like VNA services through [facility] PHONE: [phone] FAX: [phone]. Referral made via E-discharge. Please see home care orders that must be included in discharge summary for VN services to start. Patient has glucometer and supplies at bedside. Pt. Denies any further needs from CRC. Pt. Gets scripts through [place] Medicaid with co-pay. He denies any concerns related to co-pay. * Darcie Lange ADMINISTRATIVE UNDERWRITER - 01/07/2012 9:57 AM EST Geovanna Dixon Jr. 1975 [id number] PATRIC AL MD Follow Up Diabetes Consult [...] Some considerations about using metformin in Prediabetics: [place] Diabetes Prevention Program (DPP) as well as other minor studies and meta-analyses has convincingly demonstrated the efficacy of metformin in this patient group [pre-diabetics]. In addition, results of the 10 year DPP follow up have recently been published, demonstrating the fpc safety and sustainability of metformin treatment benefits [...] - will be starting Cardiac rehab at [facility], encouraged to increase physical activity as advised [...] home with glucometer - reviewed with Mr. Shahy and pending home prescriptions for new freestyle lite Continue with QID sensitive Novolog correction only Darcie Lange APRN [facility] Endocrinology Diabetes Management [phone] Pager [phone] This case was discussed with Dr. Christina Brody. 25 min time spent in patient care with 20 counseling, seeing patient, changing orders and discussion with the patient and the primary team as well as nursing. * Inna Tovar MD - 01/07/2012 9:39 AM EST Cardiac Surgery Progress Note: ID: [id number] 36/M POD #[address] Tovar [...] results found for this basename: phart, po2art, ewh6orm Assessment/Plan: Pathway. Neuro: ambulating on own per [...] present. Plan D/C tomorrow or Wednesday. * Juliana Nam T, PT - 01/07/2012 12:00 AM EST Physical [...] home. (ie take out the trash or pickle solution maker his child) Objective:Pt was seen today for [...] interventions: 30 minutes NAM TRINIDAD, PT Pager: [phone] Physical Therapy Rehabilitation Department * Vibha Martines [...] FOR CABG performed by INNA TOVAR at [facility] ??? Cabg, artery-vein, single 01/04/2012 @CABG, VENOUS & ARTERIAL GRAFT;SINGLE VEIN GRAFT performed by INNA TOVAR at [facility] OR Outpatient prescriptions marked as taking [...] yes Date: 12/29/11 Why then: Admission to [facility] What will be different this time: Just [...] in places where it is forbidden ex roman catholic No Yes 0 3. Which cigarette would [...] would be to continue to go [place]. He has quit this way before and it lasted several years, so he has a history of being successful with this method. He also pointed out that his father and an uncle quit (for now over 10 years) by going [place]. I told him that it is difficult to recommend a quit method that has a 90% failure rate, but that said, it is his choice and that I would provide him with a toolkit of information so that he will be as knowledgeable as possible about nicotineaddiction and how to stay quit. And we do know that 10% of those who quit [place] are able to be successful. I calculated and shared with him that his savings once he quits smoking would be $54 a week, $234 amonth, and $2803 a year. If he quits now his savings will be $28,030 in 10 years. The patient has also been provided with a [facility] Smoking Cessation packet and the contents have been reviewed with him. The patient now has the Quit line number for [place] and has also been encouraged to use this if needed for support. In addition he was in agreement with a referral to the [place] Quitnetworkand I have FAXed a referral to [...] weeks when he returns to see Dr. Tovra for his post op surgery check up. [...] Nutrition Intervention: Hospital Day 9 Diet Order: [facility] Appetite: fair Food allergies: none Chewing/Swallowing difficulty: none Height: (cm) 180.3 Weight: (kg) 127.9 01/06/12 Wt hx: (kg) 124.5 12/29/11 BMI: 38.4 Education: [facility] dietary guidelines. Tips To Better Food Intake (Protein) dietary guidelines. Verbalized good understanding. Education material, with means of contact provided. Assessment: Patient verbalized good understanding of protein needs for healing as well as [facility] Heart Healthy guidelines. I have added high protein snacks between meals and CIB shakes to meal trays for extra protein/nutrition. Nutrition Plan: Diet: [facility] Recommend Daily Multi Vitamins. Added high protein snacks. CIB w/skim milk shakes three times per day. Encourage good po intake. Monitor weight. Support and encouragement provided. Nutrition services to follow weekly thru hospital course unless consulted in the interim. ACOSTA SMALL * Inna Tovar MD - 01/06/2012 1:50 PM EST Cardiac Surgery In Patient Progress Note Patient Name: Geovanna Dixon Jr. : [id number] MR#: [id number] Admitted: 12/29/2011 Hospital Day 8 days Problem [...] DISCONTD: insulin regular drip 0 Units/hr (01/05/12 205) ??? DISCONTD: sodium chloride 0.9% Stopped (01/05/12 [...] ICCU. Physical Therapy. On pathway * Taylor Hamlin RN - 01/06/2012 10:11 AM EST [facility] CARDIAC REHABILITATION Geovanna Dixon Jr. was seen today regarding participation in outpatient Phase 2 Cardiac Rehabilitation at [facility] . A referral will be sent to this program. The patient was given contact information and should expect to be contacted by the program within 1-2 weeks after discharge from [facility]. * Kareen Mendoza, PT - 01/05/2012 3:59 [...] FOR CABG performed by INNA TOVAR at [facility] ??? Cabg, artery-vein, single 01/04/2012 @CABG, VENOUS & ARTERIAL GRAFT;SINGLE VEIN GRAFT performed by INNA TOVAR at [facility] OR Social History: Patient lives with [...] minutes brief evaluation KAREEN MENDOZA, PT Pager: [phone] Physical Therapy Rehabilitation Department * Camille Angulo [...] Note Office of Care Management Geovanna Dixon JrFlorencio 1975 O: Introduced self and CRC role [...] A: medical plan still evolving. P: This technical report writer or colleague from the Office of [...] AM EST CARDIOLOGY INPATIENT PROGRESS NOTE Geovanna Llanos Zack Ordoñez. SUMMARY: Geovanna Dixon Jr. is a 36 [...] Famotidine 20 mg BID FULL CODE Paola Cobosstephanie PGY 1 Pager [phone] Attending Addendum: I spoke with the patient and his family briefly this am. I agree with the principal findings. The impression and plan incorporate my input. No contraindication to surgery today. Sarthak Pollard MD [facility] pager [phone] * Sarthak Pollard MD - 01/03/2012 11:08 [...] risk of aggravating CAD. Sarthak Pollard MD [facility] pager [phone] * Bal John MD - 01/02/2012 3:10 [...] Cristina Ambriz MD PGY1, Internal Medicine Pager [phone] 01/02/2012 Attending Addendum: I have interviewed and examined the patient. I agree with the principal findings. The impression and plan incorporate my input. As above, doing well. Will keep on heparin until surgery. No angina, HF, bleeding, or evidence of HIT. Sarthak Pollard MD [facility] pager [phone] * Inna Tovar MD - 01/01/2012 3:17 PM EST Please see Dr. Major's note from 12/31/11 for full details. Briefly, Mr. Dixon developed unstable angina and ruled in for OK. Cath shows severe 3 vessel disease. Echo [...] to understand and wishes to proceed. * AtulSarthak moore MD - 01/01/2012 11:06 AM EST CARDIOLOGY [...] mg BID Paola Akers PGY 1 Pager [phone] Attending Addendum: I have interviewed and examined the patient. I agree with the principal findings. The impression and plan incorporate my input. He is disappointed that his surgery has been postponed until Wednesday butunderstands. He remains cp free. I've reviewed his angiograms and believe he needs to stay on heparin until surgery. All questions answered. Sarthak Pollard MD [facility] pager [phone] * Andi Rene MD - 12/31/2011 5:20 PM EST CARDIOLOGY INPATIENT PROGRESS NOTE Geovanna Dixon Jr. SUMMARY: Geovanna Viet Dixon Jr. is a 36 y.o. male [...] mg BID Paola Cobosstephanie PGY 1 Pager [phone] Cardiology Attending Progress Note Addendum: I have [...] would like to attend cardiac rehab at [facility] in [facility]. We will meet him again after his [...] Call saucedo within reach, family at bedside. 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 documented in this encounter H&P Notes * Jeannine Pichardo RN - 01/05/2012 12:44 PM EST [facility] , report to [facility]. * Inna Tovar [...] alleviate the pain. He eventually presented to [facility] on Wednesday wherehe had elevated troponins [...] motorcycles and hunting He is NOT a gnosticism FHx: Heart disease on both sides of the family Father's side with multiple uncles with OK's, one at age of 40 Mother's side with uncle at age 50 from [place] Diabetes in mother ROS: Positive headache, nausea [...] 13.2 12/29/2011 PTT 31 12/30/2011 Troponins at [facility]: 0.05-->0.03 Imaging: Echo 12/30/11: 1. The left [...] loss were emphasized as they relate to terminal computer operator patency of his grafts. He should receive smoking cessation counseling donya. One post op consideration will be vent wean and respiratory status given likely underlying CAMILLA and his known narcolepsy. Pre op orders written, heparin gtt to stop business continuity planning director to OR. Pt seen and interviewed [...] +active 25 pack year smoker comes to [facility] from [facility] for evaluation of intermittent CP since Wednesday. [...] history (both paternal grandparents passing away from [facility] and paternal aunts/uncles with histories of [...] FULL Provider: REMIGIO CERON MD Pager #: [phone] documented in this encounter Procedure Notes * Provider, Scanning - 01/10/2012 1:46 PM ESTAssociated Order(s): SCAN DOC: CERTIFIED SCRUM MASTER * Provider, Scanning - 01/10/2012 1:46 PM [...] EST * Consult Note - Darcie Lange, ADMINISTRATIVE UNDERWRITER - 01/06/2012 3:45 PM EST Geovanna Dixon Jr. 1975 [id number] Inpatient Endocrinology Glucose Management Consult Date of Consultation: 01/06/2012 Place of Consultation: [address] Consult Requested by: Dr. Tovar, [place] Surgery Reason for Consultation: Geovanna Dixon Jr. is a 36 y.o. male who was admitted on 12/29/2011 for the diagnosis of CAD now s/p CABG x2 with Dr. Tovar, POD #2. We are asked to see him to assist with diabetes management and to provide a review of his fpc diabetes plan. Diabetes History: Geovanna Dixon Jr. has NO history of diabetes, + for a family history of diabetes on mother's side and some on father's. Family history is also very significant for coronary artery disease. He stated that he has been tested in the past for diabetes but told that he does have diabetes, uncertain on A1C #. As per [facility] labs last A1C = 6.1% which [...] Diabetes Care: Medications: None Monitoring: None Diet: [facility] Healthy No Known Allergies Past Medical History: [...] considerations about using metformin in Prediabetics: ?? [place] Diabetes Prevention Program (DPP) as well as other minor studies and meta-analyses hasconvincingly demonstrated the efficacy of metformin in this patient group [pre-diabetics]. In addition, results of the 10 year DPP follow up have recently been published, demonstrating the fpc safety and sustainability of metformin treatment benefits [...] - will be starting Cardiac rehab at [facility], encouraged to increase physical activity as advised [...] metformin 500 mg QD Darcie Lange APRN [facility] Endocrinology Diabetes Management [phone] Pager [phone] This case was discussed with Dr. Christina [...] alleviate the pain. He eventually presented to [facility] on Wednesday where he had elevated [...] effusion or hematoma. Hospital Course: Geovanna Dixon Jr. was admitted to [facility] on 12/29/2011 to the cardiologyservice for [...] Medications: Geovanna Dixon Jr. Home Medication Instructions CRAIG:[id number] Printed on:01/08/12 1200 Medication Information simvastatin (ZOCOR) 20 mg tablet [...] Allergies: No Known Allergies Primary Care Physician: PATIRC AL MD Discharge Instructions: Call your doctor [...] Anne Tovar and/or the Cardiothoracic Surgery Physician Roller Skate Assembler Team may be reached at . Activity [...] Dr. Inna Tovar. You may use a Rowena Track or treadmill but avoid any pulling [...] friends, go to a movie, go to roman catholic, etc. Heavy activities: No hunting, skiing, jogging, [...] smoke after surgery. TOBACCO TREATMENT PLAN Geovanna Llanos Zack Jr. has a Fagerstrom Score of 5, [...] would be to continue to go [place]. He has quit this way before and [...] only 10% of those who quit [place] are able to be successful. The calculated savings once he quits smoking would be $54 a week, $234 a month, and $2803 a year. If he quits now his savings will be $28,030 in 10 years. The patient was provided with a [facility] Smoking Cessation packet and the contents have been reviewed with him. The patient now has the Quit line number for [place] and has also been encouraged to use this ifneeded for support. In addition he was in agreement with a referral to the [place] Quitnetwork and a referral was faxed to [...] Some considerations about using metformin in Prediabetics: [place] Diabetes Prevention Program (DPP) as well as other minor studies and meta-analyses has convincingly demonstrated the efficacy of metformin in this patient group [pre-diabetics]. In addition, results of the 10 year DPP follow up have recently been published, demonstrating the terminal computer operator safety and sustainability of metformin treatment benefits [...] - will be starting Cardiac rehab at [facility], encouraged to increase physical activity as advised by cardiologists Weight Loss - A 7% weight loss could significantly improve his BG control Tobacco cessation - There is growing evidence that cigarette smokers are more prone than the general population to develop T2DM. Increase in insulin resistance with tobacco use. Darcie Lange APRN [facility] Endocrinology Diabetes Management [phone] Medications: Take only those medications listed on [...] should resume a low fat, low cholesterol, [place] Heart Association Diet. Driving: No driving for [...] in outpatient Phase 2 Cardiac Rehabilitation at [facility] . A referral will be sent to this program. He was given contact information and shouldexpect to be contacted by the program within 1-2 weeks after discharge from [facility]. Arrangements for VNA/home care: PATIENT'S LOCATION: Geovanna Dixon Jr. [address] [place] [address] There is no home phone number on file. Telephone Information: In discussion with the attending physician, it is certified that this patient is under their care and that they, or a nurse practitioner, clinical nurse specialist or physician's insurance claims assistant who is working directly with them, [...] for services as follows: HOME HEALTH AGENCY: [facility]. PHONE: [phone] FAX: [phone] RN orders: Cardiopulmonary assessment, incisional assessment, assess [...] issues please call the Cardiac SurgeryOffice at [phone] FOR MEDICARE ONLY: (please delete this section if not Medicare) In discussion with the attending physician, it is certified that the clinical findings support thatthis patient is homebound (i.e. absences from home require considerable and taxing effort and are for medical reasons or hoahaoism services of infrequently or of short duration [...] nurse practitioner, clinical nurse specialist or physician's insurance claims assistant who is working directly with them, [...] effort and are for medical reasons or hoahaoism services of infrequently or of short duration when for other reasons) Please note that any additional orders needs or changes will need to be obtained from this patient's PCP: PATRIC AL MD [phone] All VNA agencies which cover the area of patient's residence have been reviewed, either verbally feli writing, and patient/family have chosen the indicated home health care agency for home services. Comments: Questions: Responses: Agency name and contact information [facility] Patient location post discharge home What services are requested Start date 01/10/2012 Responsible MD post discharge contact info PCP RN to remove chest tube sutures on or after 01/13/12. Signed: Ricky Graham PA-C [facility] Section of Cardiothoracic Surgery Date: 01/08/12 CC: MD [facility] [address] [place] [address] [place] [address] * Op Note - Inna Tovar MD - 01/04/2012 3:55 PM EST [facility] Operative Note Patient Name: Geovanna Dixon Jr. : [id number] MR#: [id number] Case Date: 01/04/2012 Surgeon: Surgeon(s) and Role: [...] enlarged. There was diffuse disease in all [place] vessels. The OFELIA and vein were of excellent quality. The lungs had early emphysematous changes. Procedure Details: The patient was brought to the operating room and given general anesthesia. A Slidell-Haley catheter, radial arterial line, and Mendez catheter [...] fter inspection for adequate hemostasis, two #28 Citizen [place] chest tubes were placed and brought out [...] Note Patient Name: Geovanna Dixon Jr. 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 No recent out door activities or [...] likely. (Leukocytosis may be r/t stress of [place].) Bacteremia as a complication of his cath, [...] EST LAB SCAN 01/10/2012 1:46 PM EST CERTIFIED SCRUM MASTER SCAN 01/10/2012 1:46 PM EST CARDIAC CATH [...] XR CHEST PA AND LATERAL Routine 01/07/20 8:32 AM EST POCT GLUCOSE Routine 01/07/2012 [...] 01/05/20 12 2:00 AM EST CARDIAC ENZYMES (MC/CGP) Routine 01/05/2012 2:00 AM EST CREATININE Routine [...] ARTERIAL POC Routine 2 12:59 PM EST PREPARE COAG FACTORS (NON-HEMOPHILIA) STAT 01/04/2012 12:05 [...] 12/30/2011 4:25 PM EST TYPE AND SCREEN ([facility]/CGP/BABITA) Routine 12/30/2011 4:14 PM EST CARDIAC ENZYMES ([facility]/CGP) STAT 12/30/2011 2:08 PM EST APTT STAT 12/30/2011 2:08 PM EST HIV SCREEN, 4TH GENERATION ([facility]/CGP/APD/NLH) Routine 12/30/2011 10:18 AM EST ECHOCARDIOGRAM TRANSTHORACIC [...] Routine 12/30/2011 7:07 AM EST CARDIAC ENZYMES ([facility]/CGP) STAT 12/30/2011 5:45 AM EST APTT STAT [...] 12/29/19 12 11:29 PM EST CARDIAC ENZYMES (MC/CGP) STAT 12/29/2011 11:29 PM EST APTT STAT [...] (Bezet) 453 ms MUSE SYSTEM Calculated P Clayton 41 degrees MUSE SYSTEM Calculated R Clayton 25 degrees MUSE SYSTEM Calculated T Clayton 74 degrees MUSE SYSTEM INTERPRETATION Sinus tachycardia [...] SCAN EXT O RDR/RSLT * SCAN DOC: CERTIFIED SCRUM MASTER (01/10/2012 1:46 PM EST) Anatomical Region Laterality Modality Other Narrative 01/11/2012 8:32 AM EST Procedure Note Provider, Scanning - 01/10/2012 1:46 PM EST Scanning Provider MEDIA MGR SCAN EXT O RDR/RSLT * POCT GLUCOSE LAB USE ONLY (01/08/2012 12:00 PM EST) Glucose, POC 106 60 - 199 mg/dL [facility] Comment: Supplemental ranges: <110 mg/dL before meals <200 mg/dL all other times of the day Blood specimen (specimen) 01/08/2012 12:00 PM EST 01/08/2012 12:00 PM EST Andi Rene MD POINT OF CARE TEST O RDERABLES Performing Organization Address [facility] Co de Phone Number [facility] * Potassium (01/08/2012 10:05 AM EST) Potassium 4.2 3.5 - 5.0 mmol/L [facility] Comment: Please note: ??Patients with WBC >100,000 [...] Tovar MD CHEMISTRY ORDERABLES Performing Organization Address [facility] Co de Phone Number [facility] * POCT GLUCOSE LAB USE ONLY (01/08/2012 7:21 AM EST) Glucose, POC 144 60 - 199 mg/dL [facility] Comment: Supplemental ranges: <110 mg/dL before meals <200 mg/dL all other times of the day Blood specimen (specimen) 01/08/2012 7:21 AM EST 01/08/2012 7:21 AM EST Andi Rene MD POINT OF CARE TEST O RDTYESHA Performing Organization Address [facility] Phone Number [facility] * POCT GLUCOSE LAB USE ONLY (01/07/2012 8:43 PM EST) Glucose, POC 179 60 - 199 mg/dL [facility] Comment: Supplemental ranges: <110 mg/dL before meals <200 mg/dL all other times of the day Blood specimen (specimen) 01/07/2012 8:43 PM EST 01/07/2012 8:43 PM EST Andi Rene MD POINT OF CARE TEST O GILDA Performing Organization Address [facility] Phone Number [facility] * POCT GLUCOSE LAB USE ONLY (01/07/2012 4:47 PM EST) Glucose, POC 128 60 - 199 mg/dL [facility] Comment: Supplemental ranges: <110 mg/dL before meals <200 mg/dL all other times of the day Blood specimen (specimen) 01/07/2012 4:47 PM EST 01/07/2012 4:47 PM EST Andi Rene MD POINT OF CARE TEST O GILDA Performing Organization Address [facility] Phone Number [facility] * Potassium (01/07/2012 11:42 AM EST) Potassium 3.6 3.5 - 5.0 mmol/L [facility] Comment: Please note: ??Patients with WBC >100,000 [...] Tovar MD CHEMISTRY ORDERABLES Performing Organization Address [facility] Co de Phone Number [facility] * POCT GLUCOSE LAB USE ONLY (01/07/2012 11:41 AM EST) Glucose, POC 114 60 - 199 mg/dL [facility] Comment: Supplemental ranges: <110 mg/dL before meals <200 mg/dL all other times of the day Blood specimen (specimen) 01/07/2012 11:41 AM EST 01/07/2012 11:41 AM EST Andi Rene MD POINT OF CARE TEST O RDERABLES Performing Organization Address [facility] Co de Phone Number [facility] * XR chest routine PA & [...] LAB USE ONLY (01/07/2012 8:00 AM EST) Pathologist [facility] Glucose, POC 116 60 - 199 mg/dL CERNER MILLENNIUM Comment: Supplemental ranges: <110 mg/dL before meals <200 mg/dL all other times of the day Blood specimen (specimen) 01/07/2012 8:00 AM EST 01/07/2012 8:00 AM EST Andi Rene MD POINT OF CARE TEST O RDERABLES [facility] MILLENNIUM * (ABNORMAL) DIFFERENTIAL, AUTOMATED (01/07/2012 4:11 AM EST) Pathologist [facility] Neutrophil % 78.1(H) 34.0 - 71.0 % [...] In Lab Sarthak Pollard MD CHEMISTRY ORDERABLES [facility] * (ABNORMAL) CBC (with Diff) (01/07/2012 4:11 [...] MD HEMATOLOGY ORDERABLE S Performing Organization Address [facility] de Phone Number CERNER MILLENNIUM * Microalbumin, urine, random (01/06/2012 9:03 PM EST) Creatinine, Urine 136 mg/dL CE RNER MILLENNIUM Albumin, Urine 14.4 mg/L CERNE R MILLENNIUM Albumin / Creatinin Ratio, Urine 11 mcg/mg Cr CERNER MILLENNIUM Comment: Reference Range* Random collection (mcg/mg creatinine) Normal ?<30 Microalbuminuria ?? 30 - 300 Clinical Albuminuria ?? >300 *[place] [employer]. Diabetic Nephropathy. Diabetes Care 1997;(Suppl 1):S24-S27 Exercise within 24 hour, infection, fever, CHF, marked hyperglycemia, and marked hypertension may elevate urinary albumin excretion over baseline values. Urine specimen (specimen) 01/06/2012 9:03 PM EST 01/06/2012 10:28 PM EST Narrative Resulting Agency Comment Spec In Lab Inna Tovar MD URINE ORDERABLES Performing Organization Address [facility] de Phone Number CERBRIAN CAENNIUM * POCT GLUCOSE LAB USE ONLY (01/06/2012 7:46 PM EST) Glucose, POC 127 60 - 199 mg/dL [facility] Comment: Supplemental ranges: <110 mg/dL before meals <200 mg/dL all other times of the day Blood specimen (specimen) 01/06/2012 7:46 PM EST 01/06/2012 7:46 PM EST Andi Rene MD POINT OF CARE TEST O GILDA Performing Organization Address [facility] Co de Phone Number [facility] * POCT GLUCOSE LAB USE ONLY (01/06/2012 4:24 PM EST) Glucose, POC 131 60 - 199 mg/dL [facility] Comment: Supplemental ranges: <110 mg/dL before meals <200 mg/dL all other times of the day Blood specimen (specimen) 01/06/2012 4:24 PM EST 01/06/2012 4:24 PM EST Andi Rene MD POINT OF CARE TEST O GILDA Performing Organization Address [facility] de Phone Number [facility] * POCT GLUCOSE LAB USE ONLY (01/06/2012 12:06 PM EST) Glucose, POC 160 60 - 199 mg/dL [facility] Comment: Supplemental ranges: <110 mg/dL before meals <200 mg/dL all other times of the day Blood specimen (specimen) 01/06/2012 12:06 PM EST 01/06/2012 12:06 PM EST Andi Rene MD POINT OF CARE TEST O GILDA Performing Organization Address [facility] de Phone Number [facility] * Potassium (01/06/2012 9:59 AM EST) Potassium 4.0 3.5 - 5.0 mmol/L [facility] Comment: Please note: ??Patients with WBC >100,000 [...] Tovar MD CHEMISTRY ORDERABLES Performing Organization Address [facility] de Phone Number [facility] * POCT GLUCOSE LAB USE ONLY (01/06/2012 6:53 AM EST) Glucose, POC 168 60 - 199 mg/dL [facility] Comment: Supplemental ranges: <110 mg/dL before meals <200 mg/dL all other times of the day Blood specimen (specimen) 01/06/2012 6:53 AM EST 01/06/2012 6:53 AM EST Andi Rene MD POINT OF CARE TEST O GILDA Performing Organization Address [facility] Phone Number [facility] * POCT GLUCOSE LAB USE ONLY (01/06/2012 5:03 AM EST) Glucose, POC 147 60 - 199 mg/dL [facility] Comment: Supplemental ranges: <110 mg/dL before meals <200 mg/dL all other times of the day Blood specimen (specimen) 01/06/2012 5:03 AM EST 01/06/2012 5:03 AM EST Andi Rene MD POINT OF CARE TEST O GILDA Performing Organization Address [facility] de Phone Number [facility] * POCT GLUCOSE LAB USE ONLY (01/06/2012 3:16 AM EST) Glucose, POC 126 60 - 199 mg/dL [facility] Comment: Supplemental ranges: <110 mg/dL before meals <200 mg/dL all other times of the day Blood specimen (specimen) 01/06/2012 3:16 AM EST 01/06/2012 3:16 AM EST Andi Rene MD POINT OF CARE TEST O RDERABLES Performing Organization Address [facility]/ZIP Co de Phone Number [facility] * POCT GLUCOSE LAB USE ONLY (01/06/2012 1:12 AM EST) Glucose, POC 135 60 - 199 mg/dL [facility] Comment: Supplemental ranges: <110 mg/dL before meals <200 mg/dL all other times of the day Blood specimen (specimen) 01/06/2012 1:12 AM EST 01/06/2012 1:12 AM EST Andi Rene MD POINT OF CARE TEST O RDERABLES Performing Organization Address [facility] Co de Phone Number [facility] * POCT GLUCOSE LAB USE ONLY (01/05/2012 11:52 PM EST) Glucose, POC 133 60 - 199 mg/dL [facility] Comment: Supplemental ranges: <110 mg/dL before meals <200 mg/dL all other times of the day Blood specimen (specimen) 01/05/2012 11:52 PM EST 01/05/2012 11:52 PM EST Andi Rene MD POINT OF CARE TEST O RDERAHERNANDEZ Performing Organization Address [facility] Co de Phone Number [facility] * POCT GLUCOSE LAB USE ONLY (01/05/2012 10:54 PM EST) Glucose, POC 130 60 - 199 mg/dL [facility] Comment: Supplemental ranges: <110 mg/dL before meals <200 mg/dL all other times of the day Blood specimen (specimen) 01/05/2012 10:54 PM EST 01/05/2012 10:54 PM EST Andi Rene MD POINT OF CARE TEST O RDERABLES [facility] * POCT GLUCOSE LAB USE ONLY (01/05/2012 9:51 PM EST) Glucose, POC 132 60 - 199 mg/dL [facility] Comment: Supplemental ranges: <110 mg/dL before meals <200 mg/dL all other times of the day Blood specimen (specimen) 01/05/2012 9:51 PM EST 01/05/2012 9:51 PM EST Andi Rene MD POINT OF CARE TEST O GILDA Performing Organization Address [facility] de Phone Number [facility] * POCT GLUCOSE LAB USE ONLY (01/05/2012 8:50 PM EST) Glucose, POC 126 60 - 199 mg/dL [facility] Comment: Supplemental ranges: <110 mg/dL before meals <200 mg/dL all other times of the day Blood specimen (specimen) 01/05/2012 8:50 PM EST 01/05/2012 8:50 PM EST Andi Rene MD POINT OF CARE TEST O GILDA Performing Organization Address [facility] de Phone Number [facility] * POCT GLUCOSE LAB USE ONLY (01/05/2012 8:07 PM EST) Glucose, POC 126 60 - 199 mg/dL [facility] Comment: Supplemental ranges: <110 mg/dL before meals <200 mg/dL all other times of the day Blood specimen (specimen) 01/05/2012 8:07 PM EST 01/05/2012 8:07 PM EST Andi Rene MD POINT OF CARE TEST O GILDA Performing Organization Address [facility] de Phone Number [facility] * POCT GLUCOSE LAB USE ONLY (01/05/2012 6:57 PM EST) Glucose, POC 137 60 - 199 mg/dL [facility] Comment: Supplemental ranges: <110 mg/dL before meals <200 mg/dL all other times of the day Blood specimen (specimen) 01/05/2012 6:57 PM EST 01/05/2012 6:57 PM EST Andi Rene MD POINT OF CARE TEST O GILDA Performing Organization Address [facility] Co de Phone Number [facility] * POCT GLUCOSE LAB USE ONLY (01/05/2012 4:59 PM EST) Glucose, POC 147 60 - 199 mg/dL [facility] Comment: Supplemental ranges: <110 mg/dL before meals <200 mg/dL all other times of the day Blood specimen (specimen) 01/05/2012 4:59 PM EST 01/05/2012 4:59 PM EST Andi Rene MD POINT OF CARE TEST O GILDA Performing Organization Address [facility] Co de Phone Number [facility] * POCT GLUCOSE LAB USE ONLY (01/05/2012 1:05 PM EST) Glucose, POC 154 60 - 199 mg/dL [facility] Comment: Supplemental ranges: <110 mg/dL before meals <200 mg/dL all other times of the day Blood specimen (specimen) 01/05/2012 1:05 PM EST 01/05/2012 1:05 PM EST Andi Rene MD POINT OF CARE TEST Stephanie VO Performing Organization Address [facility] Co de Phone Number [facility] * POCT GLUCOSE LAB USE ONLY (01/05/2012 12:42 PM EST) Glucose, POC 148 60 - 199 mg/dL [facility] Comment: Supplemental ranges: <110 mg/dL before meals <200 mg/dL all other times of the day Blood specimen (specimen) 01/05/2012 12:42 PM EST 01/05/2012 12:42 PM EST Andi Rene MD POINT OF CARE TEST O RDERABLES Performing Organization Address [facility] Co de Phone Number [facility] * POCT GLUCOSE LAB USE ONLY (01/05/2012 9:54 AM EST) Glucose, POC 145 60 - 199 mg/dL [facility] Comment: Supplemental ranges: <110 mg/dL before meals <200 mg/dL all other times of the day Blood specimen (specimen) 01/05/2012 9:54 AM EST 01/05/2012 9:54 AM EST Andi Rene MD POINT OF CARE TEST O RDERAHERNANDEZ Performing Organization Address [facility] Co de Phone Number [facility] * POCT GLUCOSE LAB USE ONLY (01/05/2012 8:00 AM EST) Glucose, POC 168 60 - 199 mg/dL [facility] Comment: Supplemental ranges: <110 mg/dL before meals <200 mg/dL all other times of the day Blood specimen (specimen) 01/05/2012 8:00 AM EST 01/05/2012 8:00 AM EST Andi Rene MD POINT OF CARE TEST O GILDA Performing Organization Address [facility] Co de Phone Number [facility] * POCT GLUCOSE LAB USE ONLY (01/05/2012 5:58 AM EST) Glucose, POC 164 60 - 199 mg/dL [facility] Comment: Supplemental ranges: <110 mg/dL before meals <200 mg/dL all other times of the day Blood specimen (specimen) 01/05/2012 5:58 AM EST 01/05/2012 5:58 AM EST Andi Rene MD POINT OF CARE TEST O RDERAHERNANDEZ Performing Organization Address [facility] Co de Phone Number [facility] * POCT GLUCOSE LAB USE ONLY (01/05/2012 4:12 AM EST) Glucose, POC 148 60 - 199 mg/dL CERNER MILLENNIUM Comment: Supplemental ranges: <110 mg/dL before meals <200 mg/dL all other times of the day Blood specimen (specimen) 01/05/2012 4:12 AM EST 01/05/2012 4:12 AM EST Andi Rene MD POINT OF CARE TEST O RDERABLES Performing Organization Address [facility] Co de Phone Number CERNER MILLENNIUM * POCT GLUCOSE LAB USE ONLY (01/05/2012 2:05 AM EST) Glucose, POC 148 60 - 199 mg/dL CERNER MILLENNIUM Comment: Supplemental ranges: <110 mg/dL before meals <200 mg/dL all other times of the day Blood specimen (specimen) 01/05/2012 2:05 AM EST 01/05/2012 2:05 AM EST Andi Rene MD POINT OF CARE TEST O RDERABLES Performing Organization Address [facility] de Phone Number CERNER MILLENNIUM * (ABNORMAL) DIFFERENTIAL, AUTOMATED (01/05/2012 [...] EST Sarthak Pollard MD HEMATOLOGY ORDERABLE S [facility] [employer] * (ABNORMAL) Cardiac Enzymes (01/05/2012 2:00 AM EST) Troponin-T 0.39(H) <=0.03 ng/mL CERNER MILLENNIUM Comment: 0.03 ng/mL: Represents the 99th percentile upper reference limit for normals. >0.03 ng/mL: Elevated cardiac troponin T level indicative of myocardial damage. Diagnosis of acute, evolving or recent OK requires a typical rise and gradual fall [...] consensus document of the Joint Society of Cardiology/[place] [employer] Committee for the redefinition of myocardial infarction. Journal of the [place] [employer] 2000; 36: 959-969] Creatine Kinase 436(H) 0 - 200 unit/L CERNER MILLENNIUM Blood specimen (specimen) 01/05/2012 2:00 AM EST 01/05/2012 2:11 AM EST Narrative Resulting Agency Comment Spec In Lab aSrthak Pollard MD CHEMISTRY ORDERABLES Performing Organization Address [facility] de Phone Number [facility] * Potassium (01/05/2012 2:00 AM EST) Potassium 4.4 3.5 - 5.0 mmol/L [facility] Comment: Please note: ??Patients with WBC >100,000 [...] Pollard MD CHEMISTRY ORDERABLES Performing Organization Address [facility] de Phone Number [facility] * (ABNORMAL) Glucose, fasting (01/05/2012 2:00 AM EST) Glucose Fasting 148(H) 65 - 99 mg/dL [facility] Comment: ?Fasting* Glucose Interpretive Criteria Normal ?65-99 [...] of Diabetes Mellitus, Position Statement from the [place] [employer]. ??Diabetes Care, Volume 33, Supplement 1, Nov 2009 Blood specimen (specimen) 01/05/2012 2:00 AM EST 01/05/2012 2:11 AM EST Narrative Resulting Agency Comment Spec In Lab Sarthak Pollard MD CHEMISTRY ORDERABLES Performing Organization Address [facility] Co de Phone Number ARIAN NELSON * Creatinine, serum (01/05/2012 2:00 AM EST) Creatinine 0.86 0.80 - 1.50 mg/dL [facility] Est Glomerular Filtration Rate >60 >=60 [facility] Comment: The National Kidney Disease Education Program [...] Pollard MD CHEMISTRY ORDERABLES Performing Organization Address [facility] Co de Phone Number ARIAN NELSON * BUN (01/05/2012 2:00 AM EST) Blood Urea Nitrogen 10 10 - 20 mg/dL [facility] Blood specimen (specimen) 01/05/2012 2:00 AM EST 01/05/2012 2:11 AM EST Narrative Resulting Agency Comment Spec In Lab Sarthak Pollard MD CHEMISTRY ORDERABLES Performing Organization Address [facility]/ZIP Co de Phone Number CERBRIAN CAENNIUM * (ABNORMAL) CBC (with Diff) (01/05/2012 2:00 [...] Sarthak Pollard MD HEMATOLOGY ORDERABLE S ARIAN CERDAIUM * POCT GLUCOSE LAB USE ONLY (01/04/2012 11:58 PM EST) Glucose, POC 136 60 - 199 mg/dL CERNER MILLENNIUM Comment: Supplemental ranges: <110 mg/dL before meals <200 mg/dL all other times of the day Blood specimen (specimen) 01/04/2012 11:58 PM EST 01/04/2012 11:58 PM EST Andi Rene MD POINT OF CARE TEST O RDERABLES Performing Organization Address [facility] Co de Phone Number [facility] * POCT GLUCOSE LAB USE ONLY (01/04/2012 9:00 PM EST) Glucose, POC 143 60 - 199 mg/dL [facility] Comment: Supplemental ranges: <110 mg/dL before meals <200 mg/dL all other times of the day Blood specimen (specimen) 01/04/2012 9:00 PM EST 01/04/2012 9:00 PM EST Andi Rene MD POINT OF CARE TEST O RDERABLES Performing Organization Address [facility] Phone Number [facility] * GLUCOSE, RANDOM (01/04/2012 9:00 PM EST) Glucose 128 60 - 199 mg/dL [facility] Comment:Diabetes: >=200 mg/d L plus symptoms Blood specimen (specimen) 01/04/2012 9:00 PM EST 01/04/2012 9:08 PM EST Narrative Resulting Agency Comment Spec In Lab Sarthak Pollard MD CHEMISTRY ORDERABLES Performing Organization Address [facility] Phone Number [facility] * (ABNORMAL) Hemoglobin (01/04/2012 9:00 PM EST) Hemoglobin 13.6(L) 13.7 - 17.5 gm/dL [facility] Blood specimen (specimen) 01/04/2012 9:00 PM EST 01/04/2012 9:08 PM EST Narrative Resulting Agency Comment Spec In Lab Sarthak Pollard MD HEMATOLOGY ORDERABLE S Performing Organization Address [facility] Co de Phone Number [facility] * Potassium (01/04/2012 9:00 PM EST) Potassium [...] In Lab Sarthak Pollard MD CHEMISTRY ORDERABLES CERNER MILLENNIUM * (ABNORMAL) BLOOD GAS 2 ARTERIAL (01/04/2012 6:47 PM EST) pH, Arterial 7.33(L) CERNER MILLENNIUM PCO2, Arterial 47(H) mmHg CERNE R MILLENNIUM PO2, Arterial 109(H) mmHg CERNER MILLENNIUM Bicarbonate, Arterial 24.1 mmol/L CERNER MILLENNIUM Base Excess, Arterial -1.9 mmol/L CERNER MILLENNIUM Hgb Blood Gas 14.1 gm/dL CERNER MILLENNIUM Comment: Total Hemoglobin (in gm/dL) ?Based on [facility] Hematology ranges: ?Age ?Reference Range Less than [...] Comment: Total Hemoglobin (in gm/dL) ?Based on [facility] Hematology ranges: ?Age ?Reference Range Less than [...] Comment: Total Hemoglobin (in gm/dL) ?Based on [facility] Hematology ranges: ?Age ?Reference Range Less than [...] (Bezet) 455 ms MUSE SYSTEM Calculated P [place] 48 degrees MUSE SYSTEM Calculated R [place] 23 degrees MUSE SYSTEM Calculated T [place] 71 degrees MUSE SYSTEM INTERPRETATION Normal sinus rhythm Normal ECG When compared with ECG of 30-DEC-2011 17:24, Vent. rate has decreased BY ??35 BPM Minimal criteria for Inferior infarct are no longer Present Nonspecific T wave abnormality, improved in Anterolateral leads Confirmed by fellow MD Steve, Luca ([id number]) on 01/05/2012 10:22:57 AM Confirmed by MD [...] l) mmHg CERNER MILLENNIUM Comment: Noted by instrumentation chemist. MTF PO2, Arterial 145(H) mmHg CERNER MILLENNIUM Bicarbonate, Arterial 25.5 mmol/L CERNER MILLENNIUM Base Excess, Arterial -0.7 mmol/L CERNER MILLENNIUM Hgb Blood Gas 11.1(L) gm/dL CERNER MILLENNIUM Comment: Total Hemoglobin (in gm/dL) ?Based on [facility] Hematology ranges: ?Age ?Reference Range Less than [...] CARE TEST O RDERABLES Performing Organization Address [facility] de Phone Number [facility] * THROMBIN TIME (01/04/2012 3:28 PM EST) Thrombin Time 17 15 - [address] [facility] Blood specimen (specimen) 01/04/2012 3:28 PM EST 01/04/2012 3:28 PM EST Narrative Resulting Agency Comment Spec In Lab Sarthak Pollard MD HEMATOLOGY ORDERABLE S Performing Organization Address [facility] de Phone Number [facility] MILLENNIUM * FIBRINOGEN (01/04/2012 3:28 PM EST) Fibrinogen 364 200 - 470 mg/dL CERNER MILLENNIUM Comment:Called by: LEILANI, Read back by: AKANKSHA SAMPSON, Date/Time:01/04/12 15:45. Blood specimen (specimen) 01/04/2012 3:28 PM EST 01/04/2012 3:28 PM EST Narrative Resulting Agency Comment Spec In Lab Sarthak Pollard MD HEMATOLOGY ORDERABLE S Performing Organization Address [facility] de Phone Number [facility] * APTT (01/04/2012 3:28 PM EST) Partial Thromboplastin Time 30 25 - 35 sec CERNER MILLENNIUM Comment: Recommended therapeutic PTT range for full dose unfractionated heparin is 80-114 seconds. Blood specimen (specimen) 01/04/2012 3:28 PM EST 01/04/2012 3:28 PM EST Narrative Resulting Agency Comment Spec In Lab Sarthak Pollard MD HEMATOLOGY ORDERABLE S Performing Organization Address [facility] de Phone Number ARIAN CERDAIUM * (ABNORMAL) PROTHROMBIN TIME (01/04/2012 3:28 PM EST) Prothrombin Time 17.8(H) 11.9 - 14.7 sec CERNER MILLENNIUM Comment: [facility] Transfusion Committee Guidelines: INR less than 2.0, [...] MD HEMATOLOGY ORDERABLE S Performing Organization Address [facility] de Phone Number CERBRIAN CAENNIUM * (ABNORMAL) CBC (WITH DIFF) (01/04/2012 [...] l) mmHg CERNER MILLENNIUM Comment: Noted by instrumentation chemist. MTF PO2, Arterial 296(H) mmHg CERNER MILLENNIUM Bicarbonate, Arterial 26.3(H) mmol/L CERNER MILLENNIUM Base Excess, Arterial 0.1 mmol/L CERNER MILLENNIUM Hgb Blood Gas 10.2(L) gm/dL CERNER MILLENNIUM Comment: Total Hemoglobin (in gm/dL) ?Based on [facility] Hematology ranges: ?Age ?Reference Range Less than [...] CARE TEST O RDERABLES CERNER MILLENNIUM * FIBRINOGEN (01/04/2012 2:25 PM EST) Fibrinogen 356 200 - 470 mg/dL CERNER MILLENNIUM Comment:Called by: LEILANI, Read back by: AKANKSHA SAMPSON, Date/Time:01/04/12 14:49. Blood specimen (specimen) 01/04/2012 2:25 PM EST 01/04/2012 2:32 PM EST Narrative Resulting Agency Comment Spec In Lab Sarthak Pollard MD HEMATOLOGY ORDERABLE S CERNER MILLENNIUM * PLATELET COUNT (01/04/2012 2:25 PM EST) Platelet 281 145 - 370 x10(3)/mcL CERNER MILLENNIUM Blood specimen (specimen) 01/04/2012 2:25 PM EST 01/04/2012 2:32 PM EST Narrative Resulting Agency Comment Spec In Lab Sarthak Pollard MD HEMATOLOGY ORDERABLE S Performing Organization Address City/[facility]/ZIP Co de Phone Number CERNER MILLENNIUM * (ABNORMAL) BLOOD GAS 2 ARTERIAL (01/04/2012 12:59 PM EST) pH, Arterial 7.36 CERNER MILLENNIUM PCO2, Arterial 48(H) mmHg CERNE R MILLENNIUM PO2, Arterial 197(H) mmHg CERNER MILLENNIUM Bicarbonate, Arterial 26.7(H) mmol/L CERNER MILLENNIUM Base Excess, Arterial 1.3 mmol/L CERNER MILLENNIUM Hgb Blood Gas 13.9 gm/dL CERNER MILLENNIUM Comment: Total Hemoglobin (in gm/dL) ?Based on [facility] Hematology ranges: ?Age ?Reference Range Less than [...] POINT OF CARE TEST O RDERABLES ARIAN NELSON * Prepare Coag Factors (Non-Hemophilia) (01/04/2012 12:05 PM EST) Dispensed? Yes ARIAN ROBYYARYIUM Blood specimen (specimen) 01/04/2012 12:05 PM EST 01/04/2012 12:01 PM EST Narrative Resulting Agency Comment Spec In Lab Inna Tovar MD BLOOD BANK PRODUCT O RDERABLES ARIAN CERDAIUM * Prepare RBC (01/04/2012 12:05 PM EST) Dispensed? Yes CERNER ROBYENNIUM Blood specimen (specimen) 01/04/2012 12:05 PM EST 01/04/2012 12:01 PM EST Narrative Resulting Agency Comment Spec In Lab Inna Tovar MD BLOOD BANK PRODUCT O RDTYESHA Performing Organization Address City/[facility] Co de Phone Number ARIAN CAENNIUM [...] 0.0 - 0.2 x10(3)/mc L CERNER MILLENNIUM [place] Absolute Manual 0.3(H) 0.0 - 0.0 x10(3)/mc [...] of Diabetes Mellitus, Position Statement from the [place] [employer]. ??Diabetes Care, Volume 33, Supplement [...] In Lab Andi Rene MD CHEMISTRY ORDERABLES [facility] OMAR * (ABNORMAL) CBC (with Diff) (01/04/2012 4:40 [...] MD HEMATOLOGY ORDERABLE S Performing Organization Address [facility] Co de Phone Number [facility] MILLENNIUM * (ABNORMAL) APTT (01/04/2012 4:40 AM EST) Partial Thromboplastin Time 103(H) 25 - 35 sec CERNER MILLENNIUM Comment: Recommended therapeutic PTT range for full dose unfractionated heparin is 80-114 seconds. Blood specimen (specimen) 01/04/2012 4:40 AM EST 01/04/2012 4:52 AM EST Narrative Resulting Agency Comment Spec In Lab Sarthak Pollard MD HEMATOLOGY ORDERABLE S [facility] MILLEN[facility]UM * (ABNORMAL) APTT (01/03/2012 7:38 PM EST) Partial Thromboplastin Time 98(H) 25 - 35 sec CERNER MILLENNIUM Comment: Recommended therapeutic PTT range for full dose unfractionated heparin is 80-114 seconds. Blood specimen (specimen) 01/03/2012 7:38 PM EST 01/03/2012 7:53 PM EST Narrative Resulting Agency Comment Spec In Lab Sarthak Pollard MD HEMATOLOGY ORDERABLE S Performing Organization Address City/[facility]/ZIP Co de Phone Number CERNER MILLENNIUM * (ABNORMAL) APTT (01/03/2012 12:17 PM EST) Partial Thromboplastin Time 101(H) 25 - 35 sec CERNER MILLENNIUM Comment: Recommended therapeutic PTT range for full dose unfractionated heparin is 80-114 seconds. Blood specimen (specimen) 01/03/2012 12:17 PM EST 01/03/2012 12:26 PM EST Narrative Resulting Agency Comment Spec In Lab Sarthak Pollard MD HEMATOLOGY ORDERABLE S Performing Organization Address [facility] de Phone Number CERNER MILLENNIUM * (ABNORMAL) DIFFERENTIAL, MANUAL (01/03/2012 6:15 AM EST) Pathologist [facility] Neutrophil % Manual 67 34 - 71 [...] MD HEMATOLOGY ORDERABLE S Performing Organization Address [facility] Co de Phone Number ARIAN CERDAIUM * ANTIBODY SCREEN (01/03/2012 6:15 AM EST) Ab Screen Interp Negative ARIAN CERDAIUM Expires at [id number] on: [id number] CERBRIAN CERDAIUM Blood specimen (specimen) 01/03/2012 6:15 AM EST 01/03/2012 6:35 AM EST Narrative Resulting Agency Comment Spec In Lab Sarthak Pollard MD BLOOD BANK LAB ORDER RANDELL Performing Organization Address [facility] de Phone Number ARIAN CERDAIUM * ABO/RH TYPING (01/03/2012 6:15 AM EST) Pathologist [facility] ABORH Type A Pos ARIAN CERDAIUM Blood specimen (specimen) 01/03/2012 6:15 AM EST 01/03/2012 6:35 AM EST Narrative Resulting Agency Comment Spec In Lab Sarthak Pollard MD BLOOD BANK LAB ORDER RANDELL Performing Organization Address [facility] Co de Phone Number ARIAN CERDAIUM * (ABNORMAL) APTT (01/03/2012 6:15 AM EST) Partial Thromboplastin Time 96(H) 25 - 35 sec ARIAN CAENNIUM Comment: Recommended therapeutic PTT range for full [...] of Diabetes Mellitus, Position Statement from the [place] [employer]. ??Diabetes Care, Volume 33, Supplement [...] ARIAN NELSON * (ABNORMAL) CBC (with Diff) (01/03/2012 6:15 [...] MD HEMATOLOGY ORDERABLE S Performing Organization Address [facility] de Phone Number [facility] * (ABNORMAL) APTT (01/02/2012 11:21 PM EST) Partial Thromboplastin Time 69(H) 25 - 35 sec [facility] Comment: Recommended therapeutic PTT range for full dose unfractionated heparin is 80-114 seconds. Blood specimen (specimen) 01/02/2012 11:21 PM EST 01/02/2012 11:24 PM EST Narrative Resulting Agency Comment Spec In Lab Sarthak Pollard MD HEMATOLOGY ORDERABLE S Performing Organization Address [facility] de Phone Number [facility] * (ABNORMAL) APTT (01/02/2012 5:32 PM EST) Partial Thromboplastin Time 53(H) 25 - 35 sec [facility] MILLENNIUM Comment: Recommended therapeutic PTT range for full dose unfractionated heparin is 80-114 seconds. Blood specimen (specimen) 01/02/2012 5:32 PM EST 01/02/2012 5:38 PM EST Narrative Resulting Agency Comment Spec In Lab Sarthak Pollard MD HEMATOLOGY ORDERABLE S Performing Organization Address [facility]/ZIP Co de Phone Number CERBRIAN CERDAIUM * (ABNORMAL) APTT (01/02/2012 11:56 AM EST) Partial Thromboplastin Time 46(H) 25 - 35 sec CERNER MILLENNIUM Comment: Recommended therapeutic PTT range for full dose unfractionated heparin is 80-114 seconds. Blood specimen (specimen) 01/02/2012 11:56 AM EST 01/02/2012 12:05 PM EST Narrative Resulting Agency Comment Spec In Lab Sarthak Pollard MD HEMATOLOGY ORDERABLE S ARIAN CERDAIUM * (ABNORMAL) DIFFERENTIAL, AUTOMATED (01/02/2012 6:02 AM [...] S CERNER MILLENNIUM * (ABNORMAL) APTT (01/02/2012 6:02 AM EST) Partial Thromboplastin Time 42(H) 25 - 35 sec CERNER MILLENNIUM Comment: Recommended therapeutic PTT range for full dose unfractionated heparin is 80-114 seconds. Blood specimen (specimen) 01/02/2012 6:02 AM EST 01/02/2012 6:29 AM EST Narrative Resulting Agency Comment Spec In Lab Sarthak Pollard MD HEMATOLOGY ORDERABLE S Performing Organization Address City/[facility]/ZIP Co de Phone Number CERNER MILLENNIUM * (ABNORMAL) BMP w/fasting Glucose (01/02/2012 6:02 [...] of Diabetes Mellitus, Position Statement from the [place] [employer]. ??Diabetes Care, Volume 33, Supplement [...] Agency Comment Spec In Lab Andi S Rene MD CHEMISTRY ORDERABLES Performing Organization Address [facility]/ZIP Co de Phone Number CERNER MILLENNIUM * [...] Lab Remigio Ceron MD HEMATOLOGY ORDERABLE S ARIAN CAENNIUM * (ABNORMAL) APTT (01/02/2012 12:23 AM EST) [...] (ABNORMAL) DIFFERENTIAL, AUTOMATED (01/01/2012 6:37 PM EST) Pathologist [facility] Neutrophil % 69.8 34.0 - 71.0 % [...] HEMATOLOGY ORDERABLE S CERBRIAN CAENNIUM * (ABNORMAL) CBC (with Diff) (01/01/2012 6:37 PM EST) Pathologist [facility] White Blood Cell 11.0(H) 4.0 - 10.0 x10(3)/mc L [facility] Red Blood Cell 4.32(L) 4.63 - 6.08 x10(6)/mc L [facility] Hemoglobin 13.1(L) 13.7 - 17.5 gm/dL [facility] Hematocrit 38.1(L) 40.0 - 51.0 % [facility] MILLENNIUM Mean Cell Volume 88.2 79.0 - 92.0 fL [facility] MILLENNIUM Mean Cell Hemoglobin 30.3 25.6 - 32.2 pg [facility] Mean Cell Hemoglobin Concentration 34.4 32.0 - 36.5 gm/dL [facility] Platelet 262 145 - 370 x10(3)/mc L [facility] MILLENNIUM RDW Standard Deviation 41.6 35.0 - 46.0 fL [facility] MILLENNIUM RDW coefficient of variation 12.9 10.9 - 14.4 % [facility] MILLENNIUM Mean Platelet Volume 10.1 9.0 - 12.0 fL [facility] Blood specimen (specimen) 01/01/2012 6:37 PM EST 01/01/2012 6:43 PM EST Narrative Resulting Agency Comment Spec In Lab Sarthak Pollard MD HEMATOLOGY ORDERABLE S Performing Organization Address [facility] de Phone Number [facility] * APTT (01/01/2012 6:37 PM EST) [facility] Partial Thromboplastin Time 32 25 - 35 sec [facility] Comment: Recommended therapeutic PTT range for full dose unfractionated heparin is 80-114 seconds. Blood specimen (specimen) 01/01/2012 6:37 PM EST 01/01/2012 6:43 PM EST Narrative Resulting Agency Comment Spec In Lab Sarthak Pollard MD HEMATOLOGY ORDERABLE S Performing Organization Address [facility] de Phone Number [facility] * POCT GLUCOSE LAB USE ONLY (01/01/2012 12:02 PM EST) [facility] Glucose, POC 99 60 - 199 mg/dL [facility] Comment: Supplemental ranges: <110 mg/dL before meals <200 mg/dL all other times of the day Blood specimen (specimen) 01/01/2012 12:02 PM EST 01/01/2012 12:02 PM EST Andi Rene MD POINT OF CARE TEST O RDERABLES Performing Organization Address [facility] Co de Phone Number [facility] * (ABNORMAL) APTT (01/01/2012 11:59 AM EST) Partial Thromboplastin Time 108(H) 25 - 35 sec [facility] Comment: Recommended therapeutic PTT range for full dose unfractionated heparin is 80-114 seconds. Blood specimen (specimen) 01/01/2012 11:59 AM EST 01/01/2012 12:06 PM EST Narrative Resulting Agency Comment Spec In Lab Andi Rene MD HEMATOLOGY ORDERABLE S Performing Organization Address [facility] de Phone Number [facility] * XR chest routine PA & lateral [...] Absolute 0.07(H) 0.00 - 0.05 x10(3)/mc L CERBRIAN CAENNIUM Blood specimen (specimen) 01/01/2012 5:19 AM EST 01/01/2012 5:36 AM EST Remigio Ceron MD HEMATOLOGY ORDERABLE S ARIAN CERDAIUM * (ABNORMAL) APTT (01/01/2012 5:19 AM EST) Partial Thromboplastin Time 105(H) 25 - 35 sec ARIAN CAENNIUM Comment: Recommended therapeutic PTT range for full dose unfractionated heparin is 80-114 seconds. Blood specimen (specimen) 01/01/2012 5:19 AM EST 01/01/2012 5:36 AM EST Narrative Resulting Agency Comment Spec In Lab Remigio Ceron MD HEMATOLOGY ORDERABLE S CERBRIAN MILLENNIUM * (ABNORMAL) BMP w/fasting Glucose (01/01/2012 5:19 [...] of Diabetes Mellitus, Position Statement from the [place] [employer]. ??Diabetes Care, Volume 33, Supplement [...] Lab Remigio Ceron MD HEMATOLOGY ORDERABLE S [facility] ROBYENNIUM * (ABNORMAL) APTT (12/31/2011 11:01 PM EST) Partial Thromboplastin Time 72(H) 25 - 35 sec CERNER MILLENNIUM Comment: Recommended therapeutic PTT range for full dose unfractionated heparin is 80-114 seconds. Blood specimen (specimen) 12/31/2011 11:01 PM EST 12/31/2011 11:18 PM EST Narrative Resulting Agency Comment Spec In Lab Andi Rene MD HEMATOLOGY ORDERABLE S [facility] PRASHANTIUM * Upper Respiratory Culture Throat (12/31/2011 9:55 PM EST) Upper Respiratory Culture ? Patient Name: ZACK JR., GEOVANNA P ? Ordered By: ANDI RENE ? MR#: [id number] ?LOC: ??[facility] ? /Sex: ??1975 (36 years), ? Male ? PROCEDURE: Upper Respiratory Culture ?SOURCE: Throat ? COLLECTED: 12/31/2011 21:55 ? STARTED: 12/31/2011 22:16 ? FINAL REPORT ? Final Report ? Verified:2011 08:12 ? Beta Hemolytic Streptococci, Group A isolated ? PRELIMINARY REPORT ? Preliminary Report ? Verified:2011 09:46 ? Beta Hemolytic Streptococci, Group A isolated ? [facility] Specimen from throat (specimen) 12/31/2011 9:55 PM EST 12/31/2011 10:16 PM EST Narrative Resulting Agency Comment Spec In Lab Andi Rene MD MICROBIOLOGY - GENER AL ORDERABLES Performing Organization Address [facility] de Phone Number [facility] * (ABNORMAL) APTT (12/31/2011 4:34 PM EST) Partial Thromboplastin Time 66(H) 25 - [address] [facility] MILLYARYIUM Comment: Recommended therapeutic PTT range for full dose unfractionated heparin is 80-114 seconds. Blood specimen (specimen) 12/31/2011 4:34 PM EST 12/31/2011 4:39 PM EST Narrative Resulting Agency Comment Spec In Lab Andi Rene MD HEMATOLOGY ORDERABLE S Performing Organization Address [facility] Co de Phone Number [facility] * Duplex Study for DVT, Bilat legs (12/31/2011 11:07 AM EST) VB Text Report Department: Vascular Surgery Lab Patient: [id number] (ZACKGEOVANNA Bauer) CPT Code: 37131 ICD-9: 780.6 Referring Physician: ANDI RENE Indication: [...] 10:39 AM EST) Smear Review Report ? [facility] ? Provider: ?? ANDI RENE ?Pt. Name: ?? GEOVANNA DIXON JR ? Acc #: ?[id number] ? Pt. ? Col Date: ?? 12/31/2011 [...] MILLENNIUM 12/31/2011 10:3 9 AM EST Andi Rene MD HEMATOLOGY ORDERABLE S Performing Organization Address City/State/[facility] Co de Phone Number CERNER MILLENNIUM * (ABNORMAL) DIFFERENTIAL, MANUAL (12/31/2011 [...] Lab Andi Rene MD HEMATOLOGY ORDERABLE S CERBRIAN MILLENNIUM * (ABNORMAL) DIFFERENTIAL, AUTOMATED (12/31/2011 9:44 [...] EST Andi Rene MD HEMATOLOGY ORDERABLE S CERBRIAN CAENNIUM * (ABNORMAL) CBC (WITH DIFF) (12/31/2011 9:44 AM EST) White Blood Cell 20.9(H) 4.0 - 10.0 x10(3)/mc L [facility] MILLEN[facility]UM Red Blood Cell 4.30(L) 4.63 - 6.08 x10(6)/mc L [facility] MILLENNIUM Hemoglobin 13.0(L) 13.7 - 17.5 gm/dL [facility] MILLENNIUM Hematocrit 38.4(L) 40.0 - 51.0 % CERNER MILLENNIUM Mean Cell Volume 89.3 79.0 - 92.0 fL CERNER MILLENNIUM Mean Cell Hemoglobin 30.2 25.6 - 32.2 pg CERNER MILLENNIUM Mean Cell Hemoglobin Concentration 33.9 32.0 - 36.5 gm/dL [facility] MILLENNIUM Platelet 236 145 - 370 x10(3)/mc L [facility] MILLENNIUM RDW Standard Deviation 42.7 35.0 - 46.0 fL CERNER MILLENNIUM RDW coefficient of variation 13.1 10.9 - 14.4 % CERNER MILLENNIUM Mean Platelet Volume 10.4 9.0 - 12.0 fL [facility] MILLENNIUM Blood specimen (specimen) 12/31/2011 9:44 AM EST 12/31/2011 10:12 AM EST Narrative Resulting Agency Comment Spec In Lab Andi Rene MD HEMATOLOGY ORDERABLE S Performing Organization Address [facility] de Phone Number [facility] * Lactate Dehydrogenase (12/31/2011 9:44 AM EST) Pathologist [facility] Lactate Dehydrogenase 123 110 - 220 unit/L [facility] Blood specimen (specimen) 12/31/2011 9:44 AM EST 12/31/2011 10:12 AM EST Narrative Resulting Agency Comment Spec In Lab Andi Rene MD CHEMISTRY ORDERABLES Performing Organization Address [facility]/ZIP Co de Phone Number [facility] * Peripheral Smear Review (12/31/2011 9:44 AM EST) Peripheral Smear Review See Comment [facility] Comment: When completed by the Pathologist, report [id number] will display under Hematology Reports. Blood specimen (specimen) 12/31/2011 9:44 AM EST 12/31/2011 10:12 AM EST Narrative Resulting Agency Comment Spec In Lab Andi Rene MD HEMATOLOGY ORDERABLE S CERBRIAN MILLENNIUM * (ABNORMAL) APTT (12/31/2011 9:44 AM EST) Partial Thromboplastin Time 50(H) 25 - 35 sec CERNER MILLENNIUM Comment: Recommended therapeutic PTT range for full dose unfractionated heparin is 80-114 seconds. Blood specimen (specimen) 12/31/2011 9:44 AM EST 12/31/2011 10:12 AM EST Narrative Resulting Agency Comment Spec In Lab Andi Rene MD HEMATOLOGY ORDERABLE S CERNER MILLENNIUM * (ABNORMAL) DIFFERENTIAL, AUTOMATED (12/31/2011 3:38 AM [...] Absolute 0.08(H) 0.00 - 0.05 x10(3)/mc L [facility] Blood specimen (specimen) 12/31/2011 3:38 AM EST 12/31/2011 3:50 AM EST Remigio Ceron MD HEMATOLOGY ORDERABLE S Performing Organization Address [facility] de Phone Number [facility] * (ABNORMAL) APTT (12/31/2011 3:38 AM EST) Partial Thromboplastin Time 47(H) 25 - 35 sec [facility] Comment: Recommended therapeutic PTT range for full dose unfractionated heparin is 80-114 seconds. Blood specimen (specimen) 12/31/2011 3:38 AM EST 12/31/2011 3:50 AM EST Narrative Resulting Agency Comment Spec In Lab Andi Rene MD HEMATOLOGY ORDERABLE S Performing Organization Address [facility] Phone Number [facility] * (ABNORMAL) BMP w/fasting Glucose (12/31/2011 3:38 AM EST) Glucose Fasting 114(H) 65 - 99 mg/dL [facility] Comment: ?Fasting* Glucose Interpretive Criteria Normal ?65-99 [...] of Diabetes Mellitus, Position Statement from the [place] [employer]. ??Diabetes Care, Volume 33, Supplement [...] ORDERABLE S CERNER MILLENNIUM * (ABNORMAL) APTT (12/30/2011 9:02 PM EST) Partial Thromboplastin Time 37(H) 25 - 35 sec [facility] [employer] Comment: Recommended therapeutic PTT range for full dose unfractionated heparin is 80-114 seconds. Blood specimen (specimen) 12/30/2011 9:02 PM EST 12/30/2011 9:10 PM EST Narrative Resulting Agency Comment Spec In Lab Andi Rene MD HEMATOLOGY ORDERABLE S Performing Organization Address City/[facility] Co de Phone Number [facility] * EKG 12 Lead (12/30/2011 5:24 PM EST) Ventricular rate 107 BPM MUSE SYSTEM Atrial Rate 107 BPM MUSE SYSTEM P-R Interval 160 ms MUSE SYSTEM QRS Duration 104 ms MUSE SYSTEM Q-T Interval 310 ms MUSE SYSTEM QTC Calculated (Bezet) 413 ms MUSE SYSTEM Calculated P [place] 24 degrees MUSE SYSTEM Calculated R [place] 25 degrees MUSE SYSTEM Calculated T [place] 54 degrees MUSE SYSTEM INTERPRETATION Sinus tachycardia Cannot rule out Inferior infarct , age undetermined Nonspecific T wave abnormality Abnormal ECG When compared with ECG of 29-DEC-2011 23:13, No significant change was found Confirmed by MD VAIBHAV, SARTHAK ([id number]) on 12/31/2011 10:51:02 AM MUSE SYSTEM 12/30/2011 5:24 PM EST 12/31/2011 10:51 AM EST Andi Rene MD ECG ORDERABLES Performing Organization Address [facility] Co de Phone Number MUSE SYSTEM * Blood culture (12/30/2011 5:04 PM EST) Blood Culture ? Patient Name: GEOVANNA DIXON JR ?Ordered By: ANDI RENE ? MR#: [id number] ?LOC: ??[facility] ? /Sex: ??1975 (36 years), ? Male ? PROCEDURE: Blood Culture ?SOURCE: Blood ? COLLECTED: 12/30/2011 17:04 ?FREE TEXT SOURCE: LAC ? STARTED: 12/30/2011 17:31 ? FINAL REPORT ? Final Report ? Verified:2011 15:07 ? No growth at 5 days. ? PRELIMINARY REPORT ? Preliminary Report ? Verified:2011 23:07 ? No growth at 4 days. ? [facility] Blood specimen (specimen) 12/30/2011 5:04 PM EST 12/30/2011 5:31 PM EST Narrative Resulting Agency Comment Spec In Lab Andi Rene MD MICROBIOLOGY - BLOOD ORDERABLES [facility] * Blood culture (12/30/2011 4:51 PM EST) Blood Culture ? Patient Name: ZACK ORDOÑEZ, GEOVANNA Viet ?Ordered By: ANDI RENE ? MR#: [id number] ?LOC: ??[facility] ? /Sex: ??1975 (36 years), [...] 0.04 0.00 - 0.05 x10(3)/mc L ARIAN CAENNIUM Blood specimen (specimen) 12/30/2011 4:25 PM EST 12/30/2011 4:43 PM EST Andi Rene MD HEMATOLOGY ORDERABLE S Performing Organization Address City/[facility] Co de Phone Number ARIAN CERDAIUM * ANTIBODY SCREEN (12/30/2011 4:25 PM EST) Ab Screen Interp Negative ARIAN CERDAIUM Expires at [phone] on: [id number] ARIAN CERDAIUM Blood specimen (specimen) 12/30/2011 4:25 PM EST 12/30/2011 4:36 PM EST Narrative Resulting Agency Comment Spec In Lab Andi Rene MD BLOOD BANK LAB ORDER RANDELL Performing Organization Address City/[facility] Co de Phone Number ARIAN CERDAIUM * ABO/RH TYPING (12/30/2011 4:25 PM EST) ABORH Type A Pos ARIAN CERDAIUM Blood specimen (specimen) 12/30/2011 4:25 PM EST 12/30/2011 4:36 PM EST Narrative Resulting Agency Comment Spec In Lab Andi Rene MD BLOOD BANK LAB ORDER RANDELL Performing Organization Address City/[facility] Co de Phone Number ARIAN CERDAIUM * Glucose, random (12/30/2011 4:25 PM EST) Glucose 126 60 - 199 mg/dL CERNER MILLENNIUM Comment:Diabetes: >=200 mg/d L plus symptoms Blood specimen (specimen) 12/30/2011 4:25 PM EST 12/30/2011 4:43 PM EST Narrative Resulting Agency Comment Spec In Lab Andi Rene MD CHEMISTRY ORDERABLES CERBRIAN CAENNIUM * (ABNORMAL) CBC (with Diff) (12/30/2011 4:25 [...] Resulting Agency Comment Spec In Lab Andi eRne MD HEMATOLOGY ORDERABLE S ARIAN CERDAIUM * APTT (12/30/2011 2:08 PM EST) Partial Thromboplastin Time 31 25 - 35 sec ARIAN NELSON Comment: Recommended therapeutic PTT range for full dose unfractionated heparin is 80-114 seconds. Blood specimen (specimen) 12/30/2011 2:08 PM EST 12/30/2011 2:27 PM EST Narrative Resulting Agency Comment Spec In Lab Andi Rene MD HEMATOLOGY ORDERABLE S Performing Organization Address [facility] Co de Phone Number ARIAN NELSON * Cardiac Enzymes (12/30/2011 2:08 PM EST) [facility] Troponin-T 0.03 <=0.03 ng/mL [facility] ROBYCLEARSKY [facility] Comment: 0.03 ng/mL: Represents the 99th percentile upper reference limit for normals. >0.03 ng/mL: Elevated cardiac troponin T level indicative of myocardial damage. Diagnosis of acute, evolving or recent OK requires a typical rise and gradual fall [...] consensus document of the Joint Society of Cardiology/[place] College [employer] Cardiology Committee for the redefinition of myocardial infarction. Journal of the [place] College [employer]iology 2000; 36: 959-969] Creatine Kinase 72 0 - 200 unit/L ARIAN NELSON Blood specimen (specimen) 12/30/2011 2:08 PM EST 12/30/2011 2:27 PM EST Narrative Resulting Agency Comment Spec In Lab Remigio Ceron MD CHEMISTRY ORDERABLES Performing Organization Address [facility] Co de Phone Number ARIAN NELSON * HIV (12/30/2011 10:18 AM EST) Pathologist [facility] HIV 1/2 Ab Negative [facility] Blood specimen (specimen) 12/30/2011 10:18 AM EST 12/30/2011 10:28 AM EST Narrative Resulting Agency Comment Spec In Lab Andi Rene MD CHEMISTRY ORDERABLES ARIAN NELSON * Echo Transthoracic (Complete) (12/30/2011 9:47 AM EST) EF 55 [facility] Anatomical Region Laterality Modality Other 12/30/2011 Narrative 12/30/2011 10:02 AM EST Procedure: ? Transthoracic Echocardiogram Patient: ? ZACK AUSTIN P ?(Age): 1975(36) Med Rec#: ?[id number] ? Sex: ?M ? [place] Loc[place] ? Ht / Wt: ??180(cm)/124(kg) Pt. Loc: ? Adult Floor ?BSA: ?2.41 Study Date: ?12/30/2011 ? Pt. Type: Inpatient Tape: ? Referring: Remigio Ceron Autism Specialist: Benjamin Lundberg Diagnosis: ??Chest pain (786.50) CPT Code(s): ??Spectral Doppler (68426), ??Color Doppler (84686), ??Echo Full (13587), Indication(s): ??Chest Pain Rhythm: HR ?BP ?106/60 [...] 12/30/2011 10:01:28 Images reviewed and interpretation verified [facility] Cardiac Ultrasound Laboratory Procedure Note Zak Coley MD - 12/30/2011 Procedure: Transthoracic Echocardiogram Patient: ZACK MILLIGAN(Age): 1975(36) Med Rec#: [id number] Sex: M Site Loc: [facility] [place] Ht / Wt: 180(cm)/124(kg) Pt. Loc: Adult Floor BSA: 2.41 Study Date: 12/30/2011 Pt. Type: Inpatient Tape: Referring: Remigio Ceron Autism Specialist: Benjamin Lundberg Diagnosis: Chest pain (786.50) CPT Code(s): Spectral Doppler (55385), Color Doppler (20599), Echo Full ([id number]), Indication(s): Chest Pain Rhythm: HR BP 106/60 [...] 12/30/2011 10:01:28 Images reviewed and interpretation verified [facility] Cardiac Ultrasound Laboratory Remigio Ceron MD ECHO [...] Urine Dipstick Clear Clear CERNER MILLENNIUM Specific [place] Urine Automated 1.019 1.002 - 1.030 CERNER MILLENNIUM Color, Urine Dipstick Yellow Yellow CERNER MILLENNIUM RBC, Urine Not Present 0 - 3 CERNER MILLENNIUM WBC, Urine 1 0 - 3 /HPF CERNER MILLENNIUM Transitional Epithelial Cells, Urine <1 <=1 /HPF ARIAN NELSON Urine specimen (specimen) 12/30/2011 9:32 AM EST 12/30/2011 9:45 AM EST Narrative Resulting Agency Comment Spec In Lab Andi Rene MD URINE ORDERABLES ARIAN NELSON * Rapid Qual Drug Screen, Urine ([facility]) (12/30/2011 9:32 AM EST) U IVAN Screen See Note JILLIANBRIAN NELSON Comment: Urine drug of abuse results: ?Amphetamines [...] testing device is being used in the [facility] Chemistry Laboratory. Please contact the chemistry laboratory at [phone] with questions. Urine specimen (specimen) 12/30/2011 9:32 AM EST 12/30/2011 9:45 AM EST Narrative Resulting Agency Comment Spec In Lab Andi Rene MD URINE ORDERABLES Performing Organization Address City/State/[facility] Co de Phone Number ARIAN NELSON * Urine culture Clean Catch Urine (12/30/2011 9:31 AM EST) Urine Culture ? Patient Name: ZACK ORDOÑEZ, GEOVANNA Llanos ?Ordered By: ANDI RENE ? MR#: [id number] ?LOC: ??ICCU ? /Sex: ?? 4 (36 [...] Rene MD MICROBIOLOGY - GENER AL ORDERABLES CERBRIAN CAENNIUM * (ABNORMAL) DIFFERENTIAL, AUTOMATED (12/30/2011 7:07 AM [...] HEMATOLOGY ORDERABLE S ARIAN CERDAIUM * (ABNORMAL) CBC (with Diff) (12/30/2011 7:07 AM EST) White Blood Cell 22.1(H) 4.0 - 10.0 x10(3)/mc L [facility] Red Blood Cell 4.54(L) 4.63 - 6.08 x10(6)/mc L [facility] MILL[facility] Hemoglobin 13.6(L) 13.7 - 17.5 gm/dL [facility] Hematocrit 40.3 40.0 - 51.0 % [facility] Mean Cell Volume 88.8 79.0 - 92.0 fL [facility] Mean Cell Hemoglobin 30.0 25.6 - 32.2 pg CERNER MILLENNIUM Mean Cell Hemoglobin Concentration 33.7 32.0 - 36.5 gm/dL [facility] MILL[facility] Platelet 230 145 - 370 x10(3)/mc L [facility] MILL[facility] RDW Standard Deviation 42.2 35.0 - 46.0 fL [facility] MILL[facility] RDW coefficient of variation 13.0 10.9 - 14.4 % [facility] MILLENNIUM Mean Platelet Volume 10.6 9.0 - 12.0 fL [facility] MILLENNIUM Blood specimen (specimen) 12/30/2011 7:07 AM EST 12/30/2011 7:18 AM EST Narrative Resulting Agency Comment Spec In Lab Remigio Ceron MD HEMATOLOGY ORDERABLE S [facility] * Hemoglobin A1c (12/30/2011 7:07 AM EST) Hemoglobin A1c 6.1 4.3 - 6.1 % [facility] Estimated Average Glucose 128 mg/dL [facility] Comment: eAG equivalents for HbA1c percentages: HbA1c(%) [...] into estimated average glucose values. ??Diabetes Care 2008:31(8):9120-2463. Blood specimen (specimen) 12/30/2011 7:07 AM EST 12/30/2011 7:18 AM EST Narrative Resulting Agency Comment Spec In Lab Remigio Ceron MD CHEMISTRY ORDERABLES Performing Organization Address [facility] Co de Phone Number [facility] * (ABNORMAL) APTT (12/30/2011 5:45 AM EST) Partial Thromboplastin Time 45(H) 25 - 35 sec [facility] Comment: Recommended therapeutic PTT range for full dose unfractionated heparin is 80-114 seconds. Blood specimen (specimen) 12/30/2011 5:45 AM EST 12/30/2011 6:10 AM EST Narrative Resulting Agency Comment Spec In Lab Andi Rene MD HEMATOLOGY ORDERABLE S Performing Organization Address [facility] de Phone Number [facility] * (ABNORMAL) Glucose, fasting (12/30/2011 5:45 AM EST) Glucose Fasting 108(H) 65 - 99 mg/dL [facility] Comment: ?Fasting* Glucose Interpretive Criteria Normal ?65-99 [...] of Diabetes Mellitus, Position Statement from the [place] [employer] Association. ??Diabetes Care, Volume 33, Supplement 1, Nov 2009 Blood specimen (specimen) 12/30/2011 5:45 AM EST 12/30/2011 6:10 AM EST Narrative Resulting Agency Comment Spec In Lab Remigio Ceron MD CHEMISTRY ORDERABLES Performing Organization Address [facility] Co de Phone Number [facility] * (ABNORMAL) Triglyceride (12/30/2011 5:45 AM EST) Triglyceride 245(H) <=149 mg/dL [facility] Comment: Reference Range: Normal triglycerides: ??<150 mg/dL Borderline high: ??150-199 mg/dL High: ??200-499 mg/dL Very high: ??>jn=638 mg/dL ELISEO 2001; 285(21):7383-9588 Blood specimen (specimen) 12/30/2011 5:45 AM EST 12/30/2011 6:10 AM EST Narrative Resulting Agency Comment Spec In Lab Remigio Ceron MD CHEMISTRY ORDERABLES Performing Organization Address [facility] Co de Phone Number [facility] * (ABNORMAL) HDL/Cholesterol Profile (12/30/2011 5:45 AM EST) Cholesterol, Total 170 <=199 mg/dL [facility] Comment: Recommendations of the NCEP Adult Treatment Panel for the following risk cutoff thresholds for the [place] population: Desirable: <200 mg/dL Borderline High: 200-239 mg/dL High: > or = 240 mg/dL HDL Cholesterol 36(L) >=40 mg/dL [facility] Comment: Reference range: ??Low HDL: ?? < 40 mg/dL ??Normal: ?40-60 mg/dL ??Desirable: > 60 mg/dL ELISEO 2001; 285(19):9298-1399 Cholesterol/HDL Ratio 4.7 ratio [facility] Comment: A Cholesterol to HDL ratio below 4:1 is desirable. ??Studies suggest that increased CAD risk occurs at ratios above 5 for females and above 6 for men. ? [place] [employer] Association ??(http://www.americanheart.org) ? Jazmine Int Med, 1994; 121:641 ? AM J Med, 1998; 105(1A):48S Blood specimen (specimen) 12/30/2011 5:45 AM EST 12/30/2011 6:10 AM EST Narrative Resulting Agency Comment Spec In Lab Remigio Ceron MD CHEMISTRY ORDERABLES [facility] * (ABNORMAL) LDL Cholesterol, Direct (12/30/2011 5:45 AM EST) LDL Cholesterol, Direct 110(H) <=99 mg/dL [facility] Comment: The National Cholesterol Education Program (NCEP) has set the following guidelines for LDL Cholesterol: Reference range: ?? Optimal: ?<100 mg/dL ?? Near Optimal/Above Optimal: ?? 100-129 mg/dL ?? Borderline high: ?130-159 mg/dL ?? High: ? 160-189 mg/dL ?? Very high: ?>ja=677 mg/dL ELISEO 2001: 285(19):5337-1296 Blood specimen (specimen) 12/30/2011 5:45 AM EST 12/30/2011 6:10 AM EST Narrative Resulting Agency Comment Spec In Lab Remigio Ceron MD CHEMISTRY ORDERABLES Performing Organization Address [facility] Co de Phone Number ARIAN NELSON * (ABNORMAL) Cardiac Enzymes (12/30/2011 5:45 AM EST) Troponin-T 0.05(H) <=0.03 ng/mL ARIAN NELSON Comment: 0.03 ng/mL: Represents the 99th percentile upper reference limit for normals. >0.03 ng/mL: Elevated cardiac troponin T level indicative of myocardial damage. Diagnosis of acute, evolving or recent OK requires a typical rise and gradual fall [...] consensus document of the Joint Society of Cardiology/[place] College of Cardiology Committee for the redefinition of myocardial infarction. Journal of the [place] College of Cardiology 2000; 36: 959-969] Creatine Kinase 82 0 - 200 unit/L ARIAN NELSON Blood specimen (specimen) 12/30/2011 5:45 AM EST 12/30/2011 6:10 AM EST Narrative Resulting Agency Comment Spec In Lab Remigio Ceron MD CHEMISTRY ORDERABLES Performing Organization Address [facility] Co de Phone Number ARIAN NELSON [...] S CERNER MILLENNIUM * (ABNORMAL) DIFFERENTIAL, AUTOMATED (12/29/2011 11:29 PM [...] EST Remigio Ceron MD HEMATOLOGY ORDERABLE S [facility] * (ABNORMAL) Cardiac Enzymes (12/29/2011 11:29 PM EST) Troponin-T 0.08(H) <=0.03 ng/mL CERNER MILLENNIUM Comment: 0.03 ng/mL: Represents the 99th percentile upper reference limit for normals. >0.03 ng/mL: Elevated cardiac troponin T level indicative of myocardial damage. Diagnosis of acute, evolving or recent OK requires a typical rise and gradual fall [...] consensus document of the Joint Society of Cardiology/[place] College of Cardiology Committee for the redefinition of myocardial infarction. Journal of the [place] College [employer] Cardiology 2000; 36: 959-969] Creatine Kinase 86 0 - 200 unit/L CERNER MILLENNIUM Blood specimen (specimen) 12/29/2011 11:29 PM EST 12/29/2011 11:34 PM EST Narrative Resulting Agency Comment Spec In Lab Remigio Ceron MD CHEMISTRY ORDERABLES Performing Organization Address [facility] Co de Phone Number ARIAN NELSON * Prothrombin Time (12/29/2011 11:29 PM EST) Prothrombin Time 13.2 11.9 - 14.7 sec CERNER MILLENNIUM Comment: [facility] Transfusion Committee Guidelines: INR less than 2.0, [...] MD HEMATOLOGY ORDERABLE S Performing Organization Address [facility] de Phone Number ARIAN NELSON * Hepatic Function Panel (12/29/2011 11:29 [...] 11:29 PM EST) NT-proBNP 114 <=125 pg/mL ARIAN CERDAIUM Blood specimen (specimen) 12/29/2011 11:29 PM EST 12/29/2011 11:34 PM EST Narrative Resulting Agency Comment Spec In Lab Remigio Ceron MD CHEMISTRY ORDERABLES ARIAN CERDAIUM * TSH (12/29/2011 11:29 PM EST) Thyroid Stimulating Hormone 0.39 0.27 - 4.20 mcIU/mL ARIAN CERDAIUM Blood specimen (specimen) 12/29/2011 11:29 PM EST 12/29/2011 11:34 PM EST Narrative Resulting Agency Comment Spec In Lab Remigio Ceron MD CHEMISTRY ORDERABLES ARIAN CERDAIUM * Phosphorus (12/29/2011 11:29 PM EST) Phosphorus 3.1 2.5 - 4.5 mg/dL CERBRIAN CERDAIUM Blood specimen (specimen) 12/29/2011 11:29 PM EST 12/29/2011 11:34 PM EST Narrative Resulting Agency Comment Spec In Lab Remigio Ceron MD CHEMISTRY ORDERABLES ARIAN CERDAIUM * Magnesium (12/29/2011 11:29 PM EST) Magnesium 0.83 0.69 - 1.07 mmol/L CERBRIAN CERDAIUM Blood specimen (specimen) 12/29/2011 11:29 PM EST 12/29/2011 11:34 PM EST Narrative Resulting Agency Comment Spec In Lab Remigio Ceron MD CHEMISTRY ORDERABLES ARIAN CERDAIUM * (ABNORMAL) Basic Metabolic Panel (non-fasting) (12/29/2011 [...] Ceron MD CHEMISTRY ORDERABLES ARIAN CAENNIUM * (ABNORMAL) CBC (with Diff) (12/29/2011 11:29 [...] MD HEMATOLOGY ORDERABLE S Performing Organization Address [facility] de Phone Number [facility] * APTT (12/29/2011 11:29 PM EST) Partial Thromboplastin Time 34 25 - 35 sec [facility] Comment: Recommended therapeutic PTT range for full dose unfractionated heparin is 80-114 seconds. Blood specimen (specimen) 12/29/2011 11:29 PM EST 12/29/2011 11:34 PM EST Narrative Resulting Agency Comment Spec In Lab Remigio Ceron MD HEMATOLOGY ORDERABLE S Performing Organization Address [facility] de Phone Number [facility] * EKG 12 Lead (12/29/2011 11:13 PM EST) Ventricular rate 108 BPM MUSE SYSTEM Atrial Rate 108 BPM MUSE SYSTEM P-R Interval 150 ms MUSE SYSTEM QRS Duration 106 ms MUSE SYSTEM Q-T Interval 340 ms MUSE SYSTEM QTC Calculated (Bezet) 455 ms MUSE SYSTEM Calculated P [place] 19 degrees MUSE SYSTEM Calculated R [place] 31 degrees MUSE SYSTEM Calculated T [place] 51 degrees MUSE SYSTEM INTERPRETATION Sinus tachycardia Nonspecific T wave abnormality Abnormal ECG No previous ECGs available Confirmed by aMdi FORD MD, Saulo ([id number]) on 12/30/2011 2:22:07 PM MUSE SYSTEM 12/29/2011 11:1 3 PM EST 12/30/2011 2:22 PM EST Remigio Ceron MD ECG ORDERABLES Performing Organization Address [facility] de Phone Number MUSE SYSTEM documented in this encounter Visit Diagnoses Not on filedocumented in this encounter Administered Medications Inactive Administered Medications - up to 3 most recent administrations Medication Order MAR Action Action Date Dose Rate Site fentaNYL 50mcg/mL injection ONCE PRN, Starting on Wed12/30/11 at 1037, Until Wed01/04/12 at 1618, Pain, Cath (Intra-Procedure), Routine Given 12/30/2011 10:37 AM EST 25 mcg iohexol (OMNIPAQUE) 350 mg/mL injection ONCE PRN, Starting on Wed12/30/11 at 1056, Until Wed01/04/12 at 1618, Per Protocol, Cath (Intra-Procedure), Routine Given 12/30/2011 10:56 AM EST 90 mLs sodium chloride 0.9% infusion CONTINUOUS PRN, Starting on Wed12/30/11 at 0955, Until Wed01/04/12 at 1618, Intra-Operative (Intra-Procedure) New Bag 12/30/2011 9:55 AM EST 30 mL/hr documented in this encounter Active and Recently [...] Chong RN)1800 (Given - Provider: Michelle Chong RN) 0000 (Given - Provider: Hermila Dumas RN)0600 (Given - Provider: Hermila Dumas RN)1200 (Given - Provider: Michelle Chong RN)1800 (Given - Provider: Michelle Chong RN)2351 (Given - Provider: Hermila Dumas RN) 0600 (Given - Provider: Hermila Dumas RN)1200 (Given - Provider: Sangita Self, DAVID) aspirin chewable tablet 81 mg(Linked Group 1) [...] Chong RN) 0900 (Given - Provider: Sangita Self, DAVID) furosemide (LASIX) injection 20 mg (CANCELED) 20 [...] Patient not available)2100 (Given - Provider: Hermila Dumas, DAVID) 0730 (Given - Provider: Sangita Self RN)1130 [...] RN)2000 (Given - Provider: Hermila Dumas RN) 09 (Given - Provider: Sangita Self RN) potassium [...] 2004 (Given - Provider: Hermila Dumas RN) 09 (Given - Provider: Sangita Self RN) protriptyline (VIVACTIL) tablet 10 mg (CANCELED) 10 mg, Oral, 3 TIMES DAILY, First dose on Wed01/05/12 at 1100, Until Discontinued, Patient using own, Routine 09 (Given - Provider: Michelle Chong RN)1500 (Given - Provider: Michelle Chong RN)2008 (Given - Provider: Hermila Dumas RN) 899 (Given - Provider: Michelle Chong RN)1500 (Given - Provider: Michelle Chong RN)2000 (Given - Provider: Hermila Dumas RN) 09 (Given - Provider: Sangita Self RN) senna-docusate [...] dose on Wed01/05/12 at 1915, Until Discontinued 314 (Given - Provider: Hermila Dumas RN)111 (Given - Provider: Michelle Chong RN)2009 (Given - Provider: Hermila Dumas RN) 314 (Given - Provider: Hermila Dumas RN)1115 (Given [...] 10 mg, Rectal, DAILY PRN, Starting on Angelita 01/07/12 at 0000, Until Wed01/08/12 at 1659, Constipation, [...] Michelle Chong RN)2039 (Given - Provider: Hermila Dumas, DAVID)2359 (Given - Provider: Hermila Dumas RN) 0300 (Given - Provider: Hermila Dumas RN)0605 (Given - Provider: Hermila Dumas RN)0916 (Given - Provider: Michelle Chong, DAVID)1623 (Given - Provider: Michelle Chong RN)2000 (Given [...] 40 mg, Oral, DAILY, First dose on e 01/05/12 at 0900, Until Discontinued, If unable to take PO, may give IV, Routine Or esomeprazole (NEXIUM) injection 40 mg (CANCELED) 40 mg, Intravenous, DAILY, First dose on e 01/05/12 at 0900, Until Discontinued, Routine documented in this encounter Care Teams Real Estate Paralegal Relationship Specialty Start Date End Date Patric Al MD PCP - General 12/29/11 02/26/19 documented as of this encounter
--- OUTSIDE RECORDS SUMMARY | 2024-07-14 14:39 | XMS_ITS | Encounter Summary ---
Author Organization [facility] Address [facility] [place] [address] Care Team Providers Care Lift Driver Name Role Phone Guanako Gusman MD Primary Care Provider [phone] Encounter Details Date Type Department Care Team (Late st Contact Info) Description 12/29/2011 Orders Only Cardiology at [address] [phone] Sarthak Pollard MD [facility] [place] [address] Social History Tobacco Use Types Packs/Day Years [...] Associated Diagnosis Comments FILM LIBRARY STORAGE ONLY DX CHEST Routine 12/29/2011 10:00 AM EST documented in this encounter Results * FILM LIBRARY- STORAGE ONLY DX CHEST (12/29/2011 10:00 AM EST) 12/29/2011 10:0 0 AM EST Narrative [facility] - 04/18/2014 2:53 PM EDT This is a non-reportable exam. Procedure Note Claude Euceda - 04/18/2014 This is a non-reportable exam. Sarthak Pollard MD [facility] FILM LIBRARY ORD ERABLES RAD [address] [facility] [place] [address] documented in this encounter Visit Diagnoses Not on filedocumented in this encounter Care Teams Lift Driver Relationship Specialty Start Date End Date Guanako Gusman MD PCP - General 12/29/11 02/26/19 documented as of this encounter
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
[2024-07-14 15:08] LABS: Abs Immature Grans 0.03 10^3/uL (0.0-0.06); Absolute Basophil Count 0.05 10^3/uL (0.0-0.2); Absolute Eosinophil Count 0.14 10^3/uL (0.0-0.7); Absolute Lymphocyte Count 1.67 10^3/uL (1.2-3.4); Absolute Neutrophil Count 6.36 10^3/uL (1.2-6.7); Basophils % 0.6 %; Eosinophils % 1.6 %; HCT 39.9 % (40.0-50.0); HGB 13.4 g/dL (13.5-17.5); Immature Grans % 0.3 %; Lymphocytes % 18.9 %; MCH 29.5 pg (27.0-33.0); MCHC 33.6 % (32.0-36.0); MCV 88 fL (80-95); MPV 9.8 fL (8.0-11.0); Monocytes % 6.8 %; Neutrophils % 71.8 %; Platelet Count 318 10^3/uL (130-400); RBC 4.55 10^6/uL (4.36-5.78); RDW 12.5 % (11.8-14.1); RDW-SD 39.5 fL; WBC 8.85 10^3/uL (4.4-10.8)
[2024-07-14 15:25] LABS: ALT 22 U/L (16-63); AST 12 U/L (15-37); Albumin 3.1 g/dL (3.4-5.0); Alkaline Phosphatase 175 U/L (46-116); BUN 6 mg/dL (7-18); Bilirubin, Total 0.31 mg/dL (0.2-1.0); CREATININE 1.1 mg/dL (0.70-1.30); Calcium 8.9 mg/dL (8.5-10.1); Chloride 93 mmol/L (98-107); Estimated GFR 81.78 (mL/min/1.73m2); Potassium 3.8 mmol/L (3.5-5.1); Sodium 128 mmol/L (136-145); Total Protein 7.4 g/dL (6.4-8.2)
[2024-07-14] MEDS: CEFEPIME 2 GM in Normal Saline 100 ML IVPB (15:30)
[2024-07-14 15:31] LABS: Glucose 630 mg/dL (74-106)
[2024-07-14] MEDS: Normal Saline 500 ML IV (15:40)
[2024-07-14 16:10] LABS: Lactate 3.2 mmol/L (0.6-1.4)
[2024-07-14] MEDS: VANCOMYCIN/WATER (PEG) 1.5 GM/300 ML BAG IVPB (16:11)
[2024-07-14] MEDS: Insulin REGULAR-Human 100 UNITS/ML UNIT 10 UNITS SC (16:11)
[2024-07-14 16:41] VITALS: BP 138/101; PULSE 95; PULSE 97; RESP 20; O2SAT 97
--- NOTE | 2024-07-17 09:01 | NUR.NOTE ---
Accessed chart to check status of referral. Nursing Note:
--- NOTE | 2024-07-19 07:20 | NUR.NOTE ---
Accessed Pt chart to obtain mode of transportation for the EMTALA form.
== END 2024-07-14 16:57 | disposition short-term general hospital (02) ==
PROVIDERS: Emergency Provider Student in an Organized Health Care Education/Training Program; PCP Family Medicine
DX: E11.621 Type 2 diabetes mellitus with foot ulcer (principal); L97.528 Non-pressure chronic ulcer of other part of left foot with other specified severity; L03.116 Cellulitis of left lower limb; E11.65 Type 2 diabetes mellitus with hyperglycemia; E11.40 Type 2 diabetes mellitus with diabetic neuropathy, unspecified; I25.10 Atherosclerotic heart disease of native coronary artery without angina pectoris; I10 Essential (primary) hypertension; E78.5 Hyperlipidemia, unspecified; Z95.5 Presence of coronary angioplasty implant and graft; Z95.1 Presence of aortocoronary bypass graft; Z79.4 Long term (current) use of insulin; Z79.84 Long term (current) use of oral hypoglycemic drugs; Z79.85 Long-term (current) use of injectable non-insulin antidiabetic drugs; Z79.82 Long term (current) use of aspirin; F17.210 Nicotine dependence, cigarettes, uncomplicated
CPT/HCPCS: 80053; 87040; 96365; 96367; 99285; 83605; 85025; J0692; J1815; J3372

== ENCOUNTER 2024-07-25 14:55 | Outpatient (REF) | payer OTHER, MEDICAID, SELFPAY ==
--- OUTSIDE RECORDS SUMMARY | 2024-07-25 15:00 | XMS_ITS | Encounter Summary ---
Author Organization [facility] Address [facility] [place] [address] Care Team Providers Care Hotel Reservationist Name Role Phone None Primary Care Provider Unavailabl e Encounter Details Date Type Department Care Team (Late st Contact Info) Description 07/24/2024 Telephone [place] [phone] Fallon Lemus RN Social History Tobacco Use Types Packs/Day Years Used Date Smoking Tobacco: Every Day Cigarettes 1 25 Started: 12/28/1986; Last attempted to quit: 12/28/2011 Alcohol Use Standard Drinks/Week Comments No 0 (1 standard drink = 0.6 oz pur e alcohol) [facility] Utilities Answer Date Recorded In the past 12 months has th e electric, gas, oil, or water company threatened to shut off services in your home? No 07/17/2024 Hunger Vital Sign Answer Date Recorded Within the past 12 months, y ou worried that your food would run out before you got the money to buy more. Never true 07/17/20 24 Within the past 12 months, t he food you bought just didn't last and you didn't have money to get more. Never true 07/17/2024 PRAPARE - Transportation Answer Date Re corded In the past 12 months, has l ack of transportation kept you from medical appointments or from getting medications? No 07/2024 In the past 12 months, has l ack of transportation kept you from meetings, work, or from getting things needed for daily living? No 07/17/2024 Housing Stability Vital Sign Answer Carlos Enrique e Recorded In the last 12 months, was t here a time when you were not able to pay the mortgage or rent on time? No 07/17/2024 In the past 12 months, how m any times have you moved where you were living? 1 07/17/2024 [facility] were you [facility] or living in a fci (including now)? No 07/17/2024 DH IPV Inpatient Questions Answer Date Recorded Does Anyone Try to Keep You From Having Contact with Others or Doing Things Outside Your Home? no 07/14/2024 Feels Threatened by Someone no 04/2024 Feels Unsafe at Home or Work/School no 07/14/2024 Physical Signs of Abuse Present no 07/14/2024 Sex and Gender Information Value Date Recorded Sex Assigned at Not on file Gender Identity Not on file Sexual Orientation Not on file documented as of this encounter Miscellaneous Notes * Telephone Encounter - Fallon Lemus RN - 07/24/2024 3:02 PM EDT Outgoing call to Lux, but spoke with his mother Cony as Lux was not available. Advised Cony that Lux needs to continue taking Aspirin, including the day of surgery, but should hold his Xarelto 3 days prior to his scheduled surgery on 08/01/24. Cony was also advised the Balaji should not take his Metformin on the day of surgery. Cony reported that he is currently not taking Trulicity or Jardiance but is taking Lantus. Balaji issupposed to be taking Humalog but she has been unable to obtain it. Balaji has an appointment with his primary care tomorrow and plans on discussing his insulin medication at that time. Cony was advised that he should not restart the Trulicity or the Jardiance as they have to be held for 7 days prior to surgery. Cony also reported that he has not been taking Aspirin but she will make sure he starts it tomorrow. Cony will have Balaji contact the clinic if he has any questions or concerns. Cony verbalized understanding of the medications prior to surgery. Milly in the [facility] aware. Jackeline RN [facility] documented in this encounter Plan of Treatment Upcoming Encounters Date Type Department Care Team (Latest Contact Info) Description 08/01/2024 7:30 AM EDT Hospital Encounter [place] [address] Lisette Maldonado MD [facility] [place] [place] [address] 08/01/2024 7:30 AM EDT - 08/01/2024 1:43 PM EDT Surgery [place] [phone] Lisette Maldonado MD [facility] [place] [address] @BYPASS GRAFT, FEM-ANT TIBIAL, -POST TIBIAL, -PERONEAL, -DP W\ SYNTHETIC CONDUIT (WRVU 23.66) Scheduled Procedures Name Priority Associated Diagnoses Date/Ti me @BYPASS GRAFT, FEM-ANT TIBIA L, -POST TIBIAL, -PERONEAL, -DP W\ SYNTHETIC CONDUIT (WRVU 23.66) [facility] 08/01/2024 7:30 AM EDT documented as of this encounter Visit Diagnoses Not on filedocumented in this encounter Care Teams Hotel Reservationist Relationship Specialty Start Date End Date None None PCP - General 05/27/24 documented as of this encounter
--- OUTSIDE RECORDS SUMMARY | 2024-07-25 15:00 | XMS_ITS | Clinical Summary ---
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 Active venlafaxine (EFFEXOR) 75 mg tablet Take 225 mg by mouth daily. Active Lancets (FREESTYLE LANCETS) MiscIndications: prediabetes now s/p CABG by Other route 2 [...] Chest pain. 25 tablet 1 08/22/2013 Active omeprazole 20 mg Tablet,Rapid Dissolve, DR [...] insulin lispro (humaLOG KwikPen) 100 unit/mL Insulin PenIndications:t ype 2 diabetes mellitus Inject SQ 3 times daily before meals: 10 unit meal dose plus sliding scale 1:20>140 - see insulin chart for instructions Indications: type 2 diabetes mellitus 15 mL 06/02/2024 Active metFORMIN (Glucophage) 500 mg tablet Take 2 tablets by mouth 2 times daily. 120 tablet 06/02/2024 Active dulaglutide (Trulicity) 1.5 mg/0.5 mL Pen InjectorIndicati ons:type 2 diabetes mellitus Inject 0.5 mLs subcutaneously once a week. Indications: type 2 diabetes mellitus 2 mL 06/02/2024 Active empagliflozin (Jardiance) 25 mg tablet Take 1 tablet by mouth daily. 30 tablet 06/02/2024 Active aspirin EC 81 mg EC (DR) tablet Take 1 tablet by mouth daily. 30 tablet 3 06/03/2024 Active freestyle lite stripsIndication s:diabetes mellitus 1 strip by Other route 3 times daily. Use as instructed Indications: diabetes 100 each 07/21/2024 Active FreeStyle Lancets 28 gauge MiscIndications: diabetes mellitus 1 each by Other route 3 times daily. Indications: diabetes 100 each 07/21/2024 Active metFORMIN (Glucophage) 1,000 mg tabletIndication s:type 2 diabetes mellitus Take 1 tablet by mouth 2 times daily (with meals). Indications: type 2 diabetes mellitus 180 tablet 07/21/2024 Active Lantus Solostar U-100 Insulin 100 unit/mL (3 mL) penIndications:t ype 2 diabetes mellitus Inject 50 Units subcutaneously daily. Indications: type 2 diabetes mellitus 15 mL 07/21/2024 Active insulin needles, disposable, 32 gauge x 5/32 NeedleIndication s:diabetes mellitus Inject 1 each subcutaneously daily. Indications: diabetes 100 each 07/21/2024 Active insulin lispro (humaLOG KwikPen) 100 unit/mL Insulin PenIndications:t ype 2 diabetes mellitus,whatver the most affordable version is for his insurance Inject 5-25 Units subcutaneously 3 times daily (with meals). Indications: type 2 diabetes mellitus, whatver the most affordable version is for his insurance 15 mL 07/21/2024 Active insulin glargine (Lantus) 100 unit/mL (3 mL) pen Inject 50 Units subcutaneously nightly. 3 mL 07/21/2024 Active amoxicillin-clav ulanate (Augmentin) 875-125 mg tablet Take 1 tablet by mouth 2 times daily for 12 days. 24 tablet 07/21/2024 08/02/2024 Active rivaroxaban (Xarelto) 20 mg tablet Take 1 tablet by mouth daily. 30 tablet 11 07/21/2024 Active Active Problems Problem Noted Date Diagnosed Date Peripheral artery disease 07/14/2024 Critical limb ischemia of left lower extremity [...] up with PCP or Dr Bird in [place] Obesity 08/22/2013 Overview (08/22/2013): Weight is 130.5 Kg on 08/22/13 NSTEMI (non-ST elevated myocardial infarction) 1 Overview (08/21/2013): , NSTEMI, [facility] 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 (SVG to PDA closed 08/27 13) 01/06/2012 Overview (08/22/2013): NSTEMI 12-29-2011 Cath - LAD, PDA and Distal Circ Disease CABG 01-04-2012 (MARTINEZ-LAD, SVG-PDA) Cardiac Cath 08/21/13: [patent MARTINEZ to LAD, occlusion of SVG to RPDA and occlusion of [place] RCA. LVEDP . PCI of mid and distal LCX (Xience) Echocardiogram 08/21/13: LVEF 65% HTN (hypertension) 12/29/2011 Hyperlipidemia 12/29/2011 Depression 12/29/2011 Narcolepsy 12/29/2011 Encounters Date Type Department Care Team Description 07/24/2024 Telephone [place] [address] Fallon Lemus RN 07/20/2024 Travel 07/19/2024 8:57 AM EDT Anesthesia Event Main Operating Room [place] [phone] Penny Mathias MD [place], Vida M 07/19/2024 8:45 AM EDT - 07/19/2024 10:21 AM EDT Surgery [place] [address] Pastora Garcia MD AMPUTATION TOE, METATARSO-PHALANGEA L JOINT (WRVU 3.51) 07/18/2024 5:26 PM EDT Anesthesia Event [place] [address] Jules Rivera MD Hawke, Aaron D, DO 07/14/2024 6:07 PM EDT - 07/21/2024 7:15 PM EDT Hospital Encounter Surgical Unit Level 4 [place] [address] Pastora Garcia MD Cellulitis of foot, left; Peripheral artery disease; Critical limb ischemia of left lower extremity Discharge Disposition: Home 06/03/2024 Notes [place] [address] Christy Lim 05/30/2024 Travel 05/28/2024 5:40 PM EDT - 06/02/2024 6:45 PM EDT Hospital Encounter Surgical Unit Level 4 [place] [address] Arthur Patel DO Columbo, Jesse A, MD Limb ischemia; Critical limb ischemia of left lower extremity Discharge Disposition: Home 05/28/2024 11:55 AM EDT Ancillary Procedure Radiology Library at [facility] [place] [address] Edin Marin MD 05/28/2024 Travel 05/28/2024 Telephone Vascular Surgery [facility] [place] [phone] Dolly Dan MD from Last 3 Months [...] drink = 0.6 oz pur e alcohol) [facility] Utilities Answer Date Recorded In the past 12 months has th e [employer], [employer], oil, or water [employer] threatened to shut off services in your [...] any time in the past 12 m [facility], were you homeless or living in a nursing home (including now)? No 07/17/2024 DH IPV Inpatient [...] Sign Reading Time Taken Comments Blood Pressure 114/83 07/21/2024 12:18 PM EDT Pulse 78 07/20/2024 10:30 AM EDT Temperature 37.1 ??C (98.8 ??F) 07/21/2024 7:22 AM ED T Respiratory Rate 18 07/21/2024 12:18 PM EDT Oxygen Saturation 99% 07/21/2024 12:18 PM EDT Inhaled Oxygen Concentration - - Weight 99.8 kg (220 lb) 07/14/2024 10:26 PM EDT Height 177.8 cm (5' 10) 07/14/2024 10:26 PM EDT Body Mass Index 31.57 07/14/2024 10:26 PM EDT Plan of Treatment Upcoming Encounters Date Type Department Care Team (Latest Contact Info) Description 08/01/2024 7:30 AM EDT Hospital Encounter [place] [phone] Lisette Maldonado MD [facility] [place] [place] [address] 08/01/2024 7:30 AM EDT - 08/01/2024 1:43 PM EDT Surgery [place] [phone] Lisette Maldonado MD [facility] [place] [place] [address] @BYPASS GRAFT, FEM-ANT TIBIAL, -POST TIBIAL, -PERONEAL, -DP W\ SYNTHETIC CONDUIT (WRVU 23.66) Scheduled Procedures Name Priority Associated Diagnoses Date/Ti me @BYPASS GRAFT, FEM-ANT TIBIA L, -POST TIBIAL, -PERONEAL, -DP W\ SYNTHETIC CONDUIT (WRVU 23.66) CLTI 08/01/2024 7:30 AM EDT Health Maintenance Due Date Last Done Comments [...] 1993 DM Urine Microalbumin yearly 01/05/2013 01/06/2012 Zoster vaccine (1 of 2) 2024 Covid-19 Vaccine (1 - 2022-2 4 season) 2024 Influenza (Flu) vaccine (1 o f 1 - Influenza standard series) 07/09/2024 08/22/2013 DM Hemoglobin A1c 08/29/2024 05/29/2024, , 12/30/2011 DM Creatinine yearly 07/21/2025 07/21/2024, 07/20/2024, 07/19/2024, Additional history exists HIV screen Completed 12/30/2011 Lipid Screening Discontinued 07/18/2024, 0702/2024, 08/21/2013, Additional history exists Medical Devices Implanted Type [employer] Device Identifier Shelf Expiration Date Model / Serial / Lot Cable,Sternal ([id number]) - [id number] Implanted:Qty : 1 on 01/04/2012 at [facility] IMPLANTS N/A: Chest [employer] - [id number] 09/03/2016 [id number] / [id number] / [id number] Cable,Sternal ,Single ([id number]) - [id number] Implanted:Qty : 1 on 01/04/2012 at [facility] IMPLANTS N/A: Chest [employer] - [id number] 09/03/2016 [id number] / [id number] / [id number] Procedures Procedure Name Priority Date/Time Associated Diagnosis Comments POC, GLUCOSE Routine 07/21/2024 3:43 PM EDT POC, GLUCOSE Routine 07/21/2024 12:18 PM EDT POC, GLUCOSE Routine 07/21/2024 8:37 AM EDT BASIC METABOLIC PANEL Routine 07/21/2024 5:55 AM EDT CBC (WITH DIFF) Routine 07/21/2024 5:55 AM EDT PHOSPHORUS Routine 07/21/2024 5:55 AM EDT MAGNESIUM Routine 07/21/2024 5:55 AM EDT POC, GLUCOSE Routine 07/21/2024 3:57 AM EDT POC, GLUCOSE Routine 07/20/2024 11:54 PM EDT POC, GLUCOSE Routine 07/20/2024 8:17 PM EDT POC, GLUCOSE Routine 07/20/2024 3:51 PM EDT POC, GLUCOSE Routine 07/20/2024 10:55 AM EDT VEIN MAP ARM BILATERAL Routine 07/20/2024 10:48 AM EDT Peripheral artery disease VS ARTERIOGRAM LOWER EXTREMITY VASCULAR SURGERY Routine 07/20/2024 10:41 AM EDT Procedure Note - Dolly Dan MD / Anabel Finney MD - 07/20/2024 10:41 AM EDTThis note is in progress. Vascular Surgery Procedure Note Name: Geovanna Dixon Jr. : 1975 Pre-procedure Dx: LLE CLTI Post-procedure Dx: Same Procedure: 1. Right femoral arterial access 2. Selective catheterization of left common iliac artery, external iliacartery 3. Left lower extremity angiogram 4. Mynx closure Surgeons: Anabel Finney MD - vascular surgeon Dolly Dan MD - vascular surgery resident Anesthesia: Conscious sedation, local 6 cc 1% lidocaine Medications: Fentanyl: 100 mcg Versed: 2 mg Antibiotics: 2 gm Ancef Fluoro Time: 2 min Contrast: 30 cc EBL: 10cc Indications for the Procedure: Geovanna Dixon Jr. is a 49 y.o. male withhistory of CAD s/p CABG, DM, obesity, NSTEMI, HTN, HLD, depression,tobacco use, substance use who presents to the ED today with concern forleft foot pain and color changes. Vascular Surgery consulted due toconcandidon for left foot gangrene with infection. Of note, patient has beenpreviously admitted to the [facility] V[facility] Surgery service on 05/28 - 06/02 ofthis year for short segment left popliteal occlusion. He was treated witha heparin drip with improvement, was also treated for cellulitis of hisLLE. Per discharge summary on 06/02, he was discharged on Xarelto 2.5 mgBID, aspirin, and a course of Augmentin with plan to follow up in onemonth, he did not present to this appointment. Patient reports that over the past few day he has noticed the color of hisleft foot and toes has begun to change, [facility] Reports some pain in his left foot but that this is not muchdifferent from what he usually has. Denies fever, chills. Denies changesin sensation of his left foot. When asked about whether he has been taking his Xarelto, patient isunsure, says he is unfamiliar with his home medication names. Does reporthe finished antibiotic course following discharge Patient reports that he has had difficult to control blood sugars in thepast, insulin dependent. Reports he smokes 1/2 pack of cigarettes a day.Reports cocaine use a few weeks ago. Denies alcohol use. Findings: - Sheath access in right groin. - Angiogram demonstrated: Left SFA with mild proximal stenosis and focalirregularity around Brad's canal. Profunda patent with mild stenosisproximal to first branch point. Short segment occlusion of above kneepopliteal artery with reconstitution of below knee popliteal artery fromcollateral filling from AT. PT and AT appear patent with minimal disease,fills to foot. - Closure device: Mynx Technical Procedure: The patient was correctly identified in the pre-procedure holding area.After a discussion of the risks and benefits, operative consent wasobtained. The patient was brought to the angio suite and placed supineupon the angio table. The patient was prepped and draped in the usualsterile fashion. A time-out was performed by the attending surgeon.Retrograde percutaneous access was obtained in the right common femoralartery via micropuncture technique under ultrasound and flouroscopicguidance after infiltration with local anesthetic. This was then up-sizedto a 10 cm 5F sheath over a J-wire. The wire was advanced into theinfra-renal aorta. A 5F omni-flush catheter was advanced into theinfrarenal aorta over the wire. The wire and catheter were then used to selectively catheterize the leftcommon iliac artery. The wire and catheter were advanced down to thecommon femoral artery. The left lower extremity was then imaged instations. Findings are as described above. The sheath was removed with the assistance of a Mynx closure device andmanual pressure was held over the puncture site for 10 minutes. Hemostasiswas satisfactory. The puncture site was dressed with a dry gauze andtegaderm. Dr. Finney, the attending surgeon, was scrubbed and present for theentire procedure. Due to the painful nature of the procedure, split dosesof fentanyl and Versed were administered by the IR nurse during continuousmonitoring of pulse, blood pressure and oxygen saturation. Closure method: Mynx Complications: None apparent Disposition: To recovery, flat for 2 hours POC, GLUCOSE Routine 07/20/2024 8:12 AM EDT CBC (WITH DIFF) Routine 07/20/2024 3:42 AM EDT POC, GLUCOSE Routine 07/20/2024 3:41 AM EDT BASIC METABOLIC PANEL Routine 07/20/2024 3:41 AM EDT PHOSPHORUS Routine 07/20/2024 3:41 AM EDT MAGNESIUM Routine 07/20/2024 3:41 AM EDT POC, GLUCOSE Routine 07/20/2024 12:56 AM EDT POC, GLUCOSE Routine 07/19/2024 11:04 PM EDT POC, GLUCOSE Routine 07/19/2024 7:38 PM EDT POC, GLUCOSE Routine 07/19/2024 4:48 PM EDT POC, GLUCOSE Routine 07/19/2024 12:21 PM EDT POC, GLUCOSE Routine 07/19/2024 11:24 AM EDT ANAEROBIC CULTURE STAT 07/19/2024 9:51 AM EDT BONE CULTURE STAT 07/19/2024 9:51 AM EDT BONE CULTURE, AEROBIC & ANAEROBIC STAT 07/19/2024 9:51 AM EDT FUNGUS CULTURE STAT 07/19/2024 9:51 AM EDT Amputation Toe, Mt-P Jt ([id number]) 07/19/2024 8:57 AM EDT peripheral artery disease POC, GLUCOSE Routine 07/19/2024 7:21 AM EDT HEPARIN (UNFRACTIONATED) LEVEL Timed 07/19/2024 6:29 AM EDT POC, GLUCOSE Routine 07/19/2024 4:24 AM EDT BASIC METABOLIC PANEL Routine 07/19/2024 3:45 AM EDT CBC (WITH DIFF) Routine 07/19/2024 3:45 AM EDT PHOSPHORUS Routine 07/19/2024 3:45 AM EDT MAGNESIUM Routine 07/19/2024 3:45 AM EDT POC, GLUCOSE Routine 07/19/2024 12:01 AM EDT POC, GLUCOSE Routine 07/18/2024 9:46 PM EDT POC, GLUCOSE Routine 07/18/2024 3:20 PM EDT POC, GLUCOSE Routine 07/18/2024 11:53 AM EDT VANCOMYCIN LEVEL, RANDOM Timed 07/18/2024 8:01 AM EDT POC, GLUCOSE Routine 07/18/2024 7:21 AM EDT HEPARIN (UNFRACTIONATED) LEVEL Timed 07/18/2024 3:33 AM EDT LDL CHOLESTEROL, DIRECT Routine 07/18/2024 3:33 AM EDT HDL/CHOL PROFILE Routine 07/18/2024 3:33 AM EDT BASIC METABOLIC PANEL Routine 07/18/2024 3:33 AM EDT CBC (WITH DIFF) Routine 07/18/2024 3:33 AM EDT PHOSPHORUS Routine 07/18/2024 3:33 AM EDT MAGNESIUM Routine 07/18/2024 3:33 AM EDT POC, GLUCOSE Routine 07/18/2024 3:21 AM EDT POC, GLUCOSE Routine 07/18/2024 12:44 AM EDT POC, GLUCOSE Routine 07/17/2024 9:02 PM EDT POC, GLUCOSE Routine 07/17/2024 4:07 PM EDT POC, GLUCOSE Routine 07/17/2024 11:31 AM EDT POC, GLUCOSE Routine 07/17/2024 7:38 AM EDT ELEN, LEGS, MULTIPLE LEVELS Routine 07/17/2024 6:31 AM EDT Cellulitis of foot, left POC, GLUCOSE Routine 07/17/2024 4:12 AM EDT HEPARIN (UNFRACTIONATED) LEVEL Timed 07/17/2024 3:42 AM EDT PHOSPHORUS Routine 07/17/2024 3:42 AM EDT MAGNESIUM Routine 07/17/2024 3:42 AM EDT BASIC METABOLIC PANEL Routine 07/17/2024 3:42 AM EDT CBC (WITH DIFF) Routine 07/17/2024 3:42 AM EDT POC, GLUCOSE Routine 07/17/2024 2:25 AM EDT POC, GLUCOSE Routine 07/17/2024 12:19 AM EDT POC, GLUCOSE Routine 07/16/2024 8:22 PM EDT POC, GLUCOSE Routine 07/16/2024 3:47 PM EDT HEPARIN (UNFRACTIONATED) LEVEL Timed 07/16/2024 3:39 PM EDT POTASSIUM Routine 07/16/2024 3:39 PM EDT MRSA PCR SCREEN Routine 07/16/2024 2:07 PM EDT POC, GLUCOSE Routine 07/16/2024 1:33 PM EDT POC, GLUCOSE Routine 07/16/2024 11:41 AM EDT HEPARIN (UNFRACTIONATED) LEVEL Timed 07/16/2024 9:41 AM EDT POC, GLUCOSE Routine 07/16/2024 7:10 AM EDT POTASSIUM Routine 07/16/2024 4:15 AM EDT PHOSPHORUS Routine 07/16/2024 4:15 AM EDT POC, GLUCOSE Routine 07/16/2024 4:14 AM EDT POC, GLUCOSE Routine 07/16/2024 2:07 AM EDT HEPARIN (UNFRACTIONATED) LEVEL Timed 07/16/2024 2:07 AM EDT MAGNESIUM Routine 07/16/2024 2:07 AM EDT BASIC METABOLIC PANEL Routine 07/16/2024 2:07 AM EDT CBC (WITH DIFF) Routine 07/16/2024 2:07 AM EDT POC, GLUCOSE Routine 07/16/2024 12:04 AM EDT POC, GLUCOSE Routine 07/15/2024 8:36 PM EDT HEPARIN (UNFRACTIONATED) LEVEL Timed 07/15/2024 8:21 PM EDT POC, GLUCOSE Routine 07/15/2024 4:41 PM EDT VANCOMYCIN, TROUGH Timed 07/15/2024 2:19 PM EDT POC, GLUCOSE Routine 07/15/2024 1:16 PM EDT POC, GLUCOSE Routine 07/15/2024 8:34 AM EDT POC, GLUCOSE Routine 07/15/2024 4:44 AM EDT POC, GLUCOSE Routine 07/15/2024 2:48 AM EDT BASIC METABOLIC PANEL Routine 07/15/2024 12:45 AM EDT CBC (WITH DIFF) Routine 07/15/2024 12:45 AM EDT POC, GLUCOSE Routine 07/15/2024 12:[address] ANGIOGRAM AORTA LOWER EXTREMITY RUNOFF STAT 07/14/2024 11:57 PM EDT XR FOOT MIN 3 VIEWS LEFT STAT 07/14/2024 9:11 PM EDT LACTATE, WHOLE BLOOD POC Routine 07/14/2024 7:41 PM EDT BASIC METABOLIC PANEL STAT 07/14/2024 7:39 PM EDT CBC (WITH DIFF) STAT 07/14/2024 7:39 PM EDT POCT GLUCOSE Routine 06/02/2024 4:12 PM EDT POCT GLUCOSE Routine 06/02/2024 1:47 PM EDT POCT GLUCOSE Routine 06/02/2024 11:28 AM EDT SCAN DOC: TELEMETRY STRIPS 06/02/2024 10:01 AM EDT POCT GLUCOSE Routine 06/02/2024 8:59 AM EDT DIFFERENTIAL, AUTOMATED Routine 06/02/2024 1:52 AM EDT HEMOGRAM Routine 06/02/2024 [...] 06/01/2024 6:43 AM EDT DIFFERENTIAL, AUTOMATED Routine 06/01/2024 6:12 AM EDT HEMOGRAM Routine 06/01/2024 6:12 [...] 05/31/2024 6:53 AM EDT DIFFERENTIAL, AUTOMATED Routine 05/31/2024 5:26 AM EDT HEMOGRAM Routine 05/31/2024 5:26 AM EDT HEPARIN (UNFRACTIONATED) LEVEL Timed 05/31/2024 5:26 AM EDT LDL CHOLESTEROL, DIRECT Routine 05/31/2024 5:26 AM EDT HDL/CHOL PROFILE Routine 05/31/2024 5:26 AM EDT PHOSPHORUS Routine 05/31/2024 5:26 AM EDT MAGNESIUM Routine 05/31/2024 5:26 AM EDT BASIC METABOLIC PANEL Routine 05/31/2024 5:26 AM EDT CBC (WITH DIFF) Routine 05/31/2024 5:26 AM EDT RAPID DRUG SCREEN W/O CONFIRMATION, URINE STAT 05/31/2024 5:00 AM EDT URINALYSIS DIPSTICK STAT 05/31/2024 5:00 AM EDT RAPID DRUG SCREEN, URINE STAT [...] 05/30/2024 6:39 AM EDT DIFFERENTIAL, AUTOMATED Routine 05/30/2024 12:39 AM EDT HEMOGRAM Routine 05/30/2024 [...] 05/29/2024 2:13 AM EDT DIFFERENTIAL, AUTOMATED Routine 05/29/2024 2:13 AM EDT HEMOGRAM Routine 05/29/2024 [...] 05/28/2024 6:20 PM EDT TYPE AND SCREEN ([facility]) STAT 05/28/2024 6:20 PM EDT GOLD TUBE HOLD STAT 05/28/2024 6:20 PM EDT DIFFERENTIAL, AUTOMATED STAT 05/28/2024 6:20 PM EDT HEMOGRAM STAT 05/28/2024 [...] AM EDT U ALBUMIN/CRE RATIO Timed 01/06/2012 9:03 PM EST HIV SCREEN, 4TH GENERATION ([facility]/CGP/APD/[facility]) Routine 12/30/2011 10:18 AM EST from Last 3 Months or Most Recently Relevant to Health Maintenance Results * POC, GLUCOSE (07/21/2024 3:43 PM EDT) Only the most recent of47 resultswithin the time period is included. Pathologist [facility] Glucometer, POC 111 65 - 199 mg/dL 07/21/2024 3:44 PM EDT [facility] Comment:Supplemental ranges: <140 mg/dL before meals <180 mg/dL all other times of the day. Blood CAPILLARY BLOOD / Unknown 07/21/2024 3:43 PM EDT 07/21/2024 3:44 PM EDT Pastora Garcia MD POINT OF CARE TEST O RDERABLES [facility] [place] [address] * (ABNORMAL) CBC (with Diff) (07/21/2024 5:55 AM EDT) Only the most recent of8 resultswithin the time period is included. White Blood Cell 10.11(H) 4.00 - 9.50 x10(3)/mc L 07/21/2024 6:17 AM EDT [facility] Red Blood Cell 4.52(L) 4.58 - 5.54 x10(6)/mc L 07/21/2024 6:17 AM [facility] Hemoglobin 13.2(L) 13.7 - 16.5 g/dL 07/21/2024 6:17 AM [facility] Hematocrit 39.7(L) 40.5 - 48.5 % 07/21/2024 6:17 AM [facility] Mean Cell Volume 87.8 82.9 - 93.1 fL 07/21/2024 6:17 AM [facility] Mean Cell Hemoglobin 29.2 27.5 - 32.1 pg 07/21/2024 6:17 AM [facility] Mean Cell Hemoglobin Concentration 33.2 32.0 - 35.7 g/dL 07/21/2024 6:17 AM [facility] Platelet 405(H) 145 - 357 x10(3)/mc L 07/21/2024 6:17 AM [facility] Mean Platelet Volume 9.3 7.6 - 12.9 fL 07/21/2024 6:17 AM [facility] RDW Standard Deviation 42.2 36.0 - 45.0 fL 07/21/2024 6:17 AM [facility] RDW coefficient of variation 13.2 11.4 - 13.8 % 07/21/2024 6:17 AM [facility] NRBC% auto 0.0 % 07/21/2024 6:17 AM [facility] NRBC Absolute 0.00 0.00 - 0.00 x10(3)/mc L 07/21/2024 6:17 AM [facility] Neutrophil % 64.5 % 07/21/2024 6:17 AM [facility] Neutrophil Absolute (ANC) - Automated 6.52(H) 1.70 - 6.10 x10(3)/mc L 07/21/2024 6:17 AM [facility] Lymph % 24.3 % 07/21/2024 6:17 AM EDT [facility] Lymph Absolute 2.46 0.90 - 3.20 x10(3)/mc L 07/21/2024 6:17 AM EDT [facility] Monocyte % 8.4 % 07/21/2024 6:17 AM EDT [facility] Monocyte Absolute 0.85 0.30 - 0.90 x10(3)/mc L 07/21/2024 6:17 AM EDT [facility] Eos % 1.6 % 07/21/2024 6:17 AM EDT [facility] Eos Absolute 0.16 0.00 - 0.40 x10(3)/mc L 07/21/2024 6:17 AM EDT [facility] Basophil % 0.7 % 07/21/2024 6:17 AM EDT [facility] Baso Absolute 0.07 0.00 - 0.10 x10(3)/mc L 07/21/2024 6:17 AM EDT [facility] Immature Gran % 0.5 % 6:17 AM EDT [facility] Immature Gran Absolute 0.05(H) 0.00 - 0.04 x10(3)/mc L 07/21/2024 6:17 AM EDT [facility] Blood VENOUS BLOOD SPECIMEN / Unknown IP Care Team Draw / Unknown 07/21/2024 5:55 AM EDT 07/21/2024 6:13 AM EDT Pastora Garcia MD HEMATOLOGY ORDERABLE S [facility] [place] [address] * Phosphorus (07/21/2024 5:55 AM EDT) Only the most recent of12 resultswithin the time period is included. Phosphorus 3.9 2.5 - 4.5 mg/dL 07/21/2024 6:45 AM EDT [facility] Blood VENOUS BLOOD SPECIMEN / Unknown IP Care Team Draw / Unknown 07/21/2024 5:55 AM EDT 07/21/2024 6:13 AM EDT Pastora Garcia MD CHEMISTRY ORDERABLES Performing Organization Address City/[facility] Co de Phone Number [facility] [place] [address] * Magnesium (07/21/2024 5:55 AM EDT) Only the most recent of12 resultswithin the time period is included. Magnesium 0.82 0.69 - 1.07 mMol/L 07/21/2024 6:45 AM EDT [facility] Blood VENOUS BLOOD SPECIMEN / Unknown IP Care Team Draw / Unknown 07/21/2024 5:55 AM EDT 07/21/2024 6:13 AM EDT Pastora Garcia MD CHEMISTRY ORDERABLES Performing Organization Address [facility] Co de Phone Number [facility] [place] [address] * (ABNORMAL) Basic Metabolic Panel (07/21/2024 5:55 AM EDT) Only the most recent of15 resultswithin the time period is included. Glucose 172 65 - 199 mg/dL 07/21/2024 6:45 AM EDT [facility] Comment:Glucose Concentratio n >=200 mg/dL plus symptoms is consistent with Diabetes Mellitus. Blood Urea Nitrogen 12 10 - 20 mg/dL 07/21/2024 6:45 AM EDT [facility] Creatinine 0.55(L) 0.80 - 1.50 mg/dL 07/21/2024 6:45 AM EDT [facility] Sodium 138 135 - 145 mMol/L 07/21/2024 6:45 AM EDT [facility] Potassium 4.1 3.5 - 5.0 mMol/L 07/21/2024 6:45 AM EDT [facility] Chloride 103 98 - 107 mMol/L 07/21/2024 6:45 AM EDT [facility] Carbon Dioxide 23 22 - 31 mMol/L 07/21/2024 6:45 AM EDT [facility] Anion Gap 12 5 - 15 mMol/L 07/21/2024 6:45 AM EDT [facility] Calcium 9.4 8.5 - 10.5 mg/dL 07/21/2024 6:45 AM EDT [facility] Est Glomerular Filtration Rate - Male 121 mL/min/1. 73 m?? 07/21/2024 6:45 AM EDT [facility] Comment: This patient's estimated GFR [...] urine creatinine clearance. Assignment of CKD stage 1 - 5 for patients with an eGFR near the transition point between stages may be based on clinical assessment of muscle mass and symptoms in addition to eGFR. Link: eGFR Calculator [employer] Blood VENOUS BLOOD SPECIMEN / Unknown IP Care Team Draw / Unknown 07/21/2024 5:55 AM EDT 07/21/2024 6:13 AM EDT Pastora Garcia MD CHEMISTRY ORDERABLES [facility] [place] [address] * Vein Map Arm, Bilateral (07/20/2024 10:48 AM EDT) VB Text Report Department: Vascular Surgery Lab Patient: [id number] (GEOVANNA DIXON) CPT: 15231 Referring Physician: PASTORA GARCIA ?? Indications: Patient with CLI, needs bypass, ? viable vein for bypass Findings: Right ?Diameter AP (mm) ??Thrombus ? Shoulder Cephalic Vein ?2.1 ? Mid Upper Arm Cephalic Vein ? 1.9 ? Antecubital Fossa Cephalic Vein ? 5.4 ??THROMBUS ? Cephalic Upper Forearm ?4.7 ??THROMBUS ? Mid Forearm Cephalic Vein ?Not Identified ?? Cephalic Lower Forearm ?1.3 ? Wrist Cephalic Vein ? 0.8 ? Upper Arm Basilic Vein ?3.3 ? Mid Upper Arm Basilic Vein ?1.8 ? Basilic Upper Arm Distal ?2.4 ? Antecubital Fossa Basilic Vein ?1.7 ? Left ? Diameter AP (mm) ??Thrombus ? Shoulder Cephalic Vein ?1.6 ? Mid Upper Arm Cephalic Vein ? 1.5 ? Antecubital Fossa Cephalic Vein ? 2.2 ? Cephalic Upper Forearm ? Not Identified ?? Mid Forearm Cephalic Vein ?Not Identified ?? Cephalic Lower Forearm ?1.3 ? Wrist Cephalic Vein ? 0.8 ? Upper Arm Basilic Vein ?2.0 ? Mid Upper Arm Basilic Vein ?2.6 ? Basilic Upper Arm Distal ?2.2 ??THROMBUS ? Antecubital Fossa Basilic Vein ?1.3 ??THROMBUS ? Findings: RIGHT: There is non-occlusive and occlusive superficial vein thrombus in the cephalic vein at the proximal to prox/mid forearm. Unable to study the cephalic vein at the mid forearm due to IV/bandage; cannot exclude thrombus here. The remainder of the cephalic and basilic veins are patent and fully compressible. The vessels were mapped from wrist to the proximal upper arm. LEFT: The basilic vein is thrombosed at the antecubital fossa through to the low upper arm. The remainder of the basilic and the studied cephalic vein are patent with no evidence of thrombus. The cephalic vein was not studied in the proximal to mid forearm due to IV/bandage; cannot exclude thrombus here. The vessels were mapped from wrist to the proximal upper arm. Comparison: No previous study in our vascular lab database for comparison. Electronically Signed by: ANABEL FINNEY on 2024-07-21 08:27:55 AM [facility] VB Text Report End of Report [facility] 07/20/2024 10:4 8 AM EDT Pastora Garcia MD VASCULAR ORDERABLES [facility] * Anaerobic Culture (07/19/2024 9:51 AM EDT) Anaerobic Culture No anaerobic organisms isolated 07/23/2024 3:24 PM EDT [facility] Bone STRUCTURE OF TOE OF LEFT FOOT / Unknown 07/19/2024 9:51 AM EDT Comment:PERIPHERAL ARTERY DI SEASE Pastora Garcia MD MICROBIOLOGY - GENER AL ORDERABLES [facility] [place] [address] * Bone Culture (07/19/2024 9:51 AM EDT) Bone Culture No growth 07/23/2024 12:36 PM EDT [facility] Gram Stain No neutrophils seen 07/23/2024 12:36 PM EDT [facility] Gram Stain No microorganisms seen 07/23/2024 12:36 PM EDT [facility] Bone STRUCTURE OF TOE OF LEFT FOOT / Unknown 07/19/2024 9:51 AM EDT Comment:PERIPHERAL ARTERY DI SEASE aPstora Garcia MD MICROBIOLOGY - GENER AL ORDERABLES Performing Organization Address [facility] Co de Phone Number [facility] [place] [address] * Heparin (unfractionated) Level (07/19/2024 6:29 AM EDT) Only the most recent of13 resultswithin the time period is included. UF Heparin 0.42 IU/mL 07/19/2024 6:44 AM EDT [facility] Comment: Heparin (anti-Xa) levels should be determined in a plasma sample that has been drawn 6 hours after a dose change to approximate steady-state for continuous heparin infusions. Indication specific Heparin (anti-Xa) levels based on order set selection: Acute DVT or PE prevention: ? 0.3-0.7 IU/mL Thrombosis Prevention (e.g. atrial fibrillation, kaelyn-procedural bridging, mechanical valves): ? 0.3-0.7 IU/mL Acute Coronary Syndrome: ? 0.3-0.7 IU/mL Stroke Indications: ? 0.3-0.5 IU/mL Ultra-low intensity (select indications in cardiac surgery): ? 0.1-0.3 IU/mL Blood VENOUS BLOOD SPECIMEN / Unknown IP Care Team Draw / Unknown 07/19/2024 6:29 AM EDT 07/19/2024 6:34 AM EDT Pastora Garcia MD HEMATOLOGY ORDERABLE S [facility] [place] [address] * Vancomycin Level, Random (07/18/2024 8:01 AM EDT) Vancomycin, Random 17.2 mg/L 2023 9:40 AM EDT [facility] Comment:This level is for de termination of the patient's vancomycin vbsg-zsamb-bnu-curve (AUC) value. Contact the inpatient pharmacy for interpretation. Blood VENOUS BLOOD SPECIMEN / Unknown IP Care Team Draw / Unknown 07/18/2024 8:01 AM EDT 07/18/2024 8:39 AM EDT Pastora Garcia MD CHEMISTRY ORDERABLES [facility] [place] [address] * LDL Cholesterol, Direct (07/18/2024 3:33 AM EDT) Only the most recent of2 resultswithin the time period is included. LDL Cholesterol, Direct 65 mg/dL 07/18/2024 4:50 AM EDT [facility] Comment: Desirable: <100 mg/dL Above Desirable: 100-129 mg/dL Borderline High: 130-159 mg/dL High: 160-189 mg/dL Very High: > or =190 mg/dL If not reaching LDL goals on maximally tolerated statin, consider ezetimibe and/or a PCSK9 inhibitor: ? * Target for primary prevention: LDL<100 ? * Target for those with ASCVD or diabetes and 10-year risk?20%: LDL<70 ? * Target for those with very high risk ASCVD: LDL<55 (Very high risk being the presence of 2 or more of: recent acute coronary syndrome, past ?myocardial infarction, ischemic stroke, symptomatic peripheral artery disease). Blood VENOUS BLOOD SPECIMEN / Unknown IP Care Team Draw / Unknown 07/18/2024 3:33 AM EDT 07/18/2024 4:21 AM EDT Pastora Garcia MD CHEMISTRY ORDERABLES [facility] [place] [address] [place] [address] * HDL/Cholesterol Profile (07/18/2024 3:33 AM EDT) Only the most recent of2 resultswithin the time period is included. Cholesterol, Total 114 mg/dL 07/18/2024 4:50 AM EDT [facility] Comment: Desirable: < 200 mg/dL Borderline High: 200 - 239 mg/dL High: > or = 240 mg/dL HDL Cholesterol 38 mg/dL 4:50 AM EDT [facility] Comment:Males: High Risk: <4 0 mg/dL Non-HDL Cholesterol 76 mg/dL 07/18/2024 4:50 AM EDT [facility] Comment: Desirable: <130 mg/dL Above Desirable: 130-159 mg/dL Borderline High: 160-189 mg/dL High: 190-219 mg/dL Very High: > or = 220 mg/dL Blood VENOUS BLOOD SPECIMEN / Unknown IP Care Team Draw / Unknown 07/18/2024 3:33 AM EDT 07/18/2024 4:21 AM EDT [facility] - 07/18/2024 4:50 AM EDT It is important to review the results of your lipid panel with your health care provider. You can compare your lipid results to the ranges below and whether they are in the desirable range. These ranges are only meant to be used for people without known cardiac disease, history of stroke, or peripheral vascular disease (blockages in the leg arteries or diabetes). If you have one of these conditions, your desirable LDL-C (bad cholesterol) will likely be even lower. ?? ACC/AHA Guidelines (most recently Johann alvarez al. [facility] 08/11/22): * For individuals with atherosclerotic cardiovascular disease (ASCVD) or LDL >=190 mg/dL, use a high-intensity statin(40-80 mg atorvastatin or 20-40 mg rosuvastatin with goal >=50% LDL reduction) * For individuals with diabetes, age 40-75 without ASCVD, moderate-intensity statin (goal 30-49% LDL reduction); consider high intensity statin for those with increased risk. * For adults without diabetes or ASCVD, aged 40-75 with LDL 70-189 mg/dL, estimate 10 year ASCVD risk with smartphrase ??.ASCVDRISK ??or Dynamed Decisions. If 10 year risk is 7.5%-19.9% (intermediate risk), consider moderate intensity statin based on risk enhancers and patient preference. Consider coronary artery calcium test (CT)if there is concern regarding the benefit of a statin. If ten year risk is >=20%, initiate high-intensity statin. * Evaluate for secondary causes of Triglycerides >500 mg/dL or LDL >190 mg/dL. * Lifestyle modification is a critical component of ASCVD risk reduction. * If not reaching LDL goals on maximally tolerated statin, consider ezetimibe and/or a PCSK9 inhibitor: ?* Target for primary prevention: LDL<100 ?* Target for those with ASCVD or diabetes and 10-year risk >=20%: LDL<70 ?* Target for those with very high risk ASCVD: LDL<55 (Very high risk being the presence of 2 or more of: recent acute coronary syndrome, past ? myocardial infarction, ischemic stroke, symptomatic peripheral artery disease) Pastora Garcia MD CHEMISTRY ORDERABLES Performing Organization Address City/State/[facility] Co de Phone Number [facility] [place] [address] * ELEN, legs, multiple levels (07/17/2024 6:31 AM EDT) Only the most recent of2 resultswithin the time period is included. [facility] Text Report Department: Vascular Surgery Lab Patient: [id number] (GEOVANNA DIXON) CPT: 75703 Referring Physician: VIBHA TIERNEY ?? Indications: PAD ? peripheral perfusion Diabetes mellitus: Yes Findings: Right ?Pressure (mm Hg) ?? ELEN ??Waveform ?TBI ?? Brachial Artery ?152 ? Dorsalis Pedis (Ankle) Artery ?167 ? 1.10 ??Triphasic ? Posterior Tibial (Ankle) Artery ??168 ? 1.11 ??Triphasic ? Great Toe ?141 ?0.93 ?? Left ? Pressure (mm Hg) ?? ELEN ??Waveform ?TBI ?? Brachial Artery ?149 ? Dorsalis Pedis (Ankle) Artery ?83 ?0.55 ??[place]-Biphasic ? Posterior Tibial (Ankle) Artery ??87 ?0.57 ??Monophasic ? Great Toe ?58 ? 0.38 ?? Interpretation: RIGHT: No significant lower extremity arterial occlusive disease. Normal ankle/brachial pressure ratios, ankle Doppler waveforms and toe pressures. No significant change compared to previous exam on 05/29/24. LEFT: Moderate lower extremity arterial occlusive disease to the ankle and moderately severe disease in the foot. No significant change compared to previous exam on 05/29/24. Previous ABIs with change from previous value: Date ?RIGHT DP ?? RIGHT PT ?? RT GR TOE ??RT Sec TOE ??1.10 ? 1.17 ? 0.88 ? ---- Current ? 1.10( .00) 1.11(-.06) 0.93(+.05) ---- Date ?LEFT DP ?LEFT PT ?LT GR TOE LT Sec TOE ??---- ? ---- ? 0.24 ? ---- Current ? 0.55 ? 0.57 ? 0.38(+.14) ---- Electronically Signed by: HERMILA VÁSQUEZ on 2024-07-17 05:20:51 PM [facility] VB Text Report End of Report [facility] 07/17/2024 6:31 AM EDT Vibha Tierney APRN VASCULAR ORDERABLE S [facility] * Potassium (07/16/2024 3:39 PM EDT) Only the most recent of2 resultswithin the time period is included. Potassium 3.9 3.5 - 5.0 mMol/L 07/16/2024 4:15 PM EDT [facility] Blood VENOUS BLOOD SPECIMEN / Unknown IP Care Team Draw / Unknown 07/16/2024 3:39 PM EDT 07/16/2024 3:47 PM EDT Hermila White RESHMA CHEMISTRY ORDERABL ES Performing Organization Address [facility] Co de Phone Number [facility] [place] [address] * MRSA PCR Screen (07/16/2024 2:07 PM EDT) Only the most recent of2 resultswithin the time period is included. [facility] MRSA PCR Not Detected 07/17/2024 6:04 PM EDT [facility] Swab BOTH ANTERIOR NARES / Unknown Non Blood Collection / Unknown 07/16/2024 2:07 PM EDT 07/16/2024 2:13 PM EDT Narrative [facility] - 07/17/2024 6:04 PM EDT This test was performed using the Xpert MRSA NxG test kit and is run on the [employer] GeneXpert Dx System. This test is cleared by the U.S. Food and Drug Administration for clinical use and its performance characteristics have been verified by the [facility] at [facility]. This test was performed using the Xpert MRSA NxG test kit and is run on the [employer]pert Dx System. This test is cleared by the U.S. Food and Drug Administration for clinical use and its performance characteristics have been verified by the [facility] at [facility]. Hermila White RESHMA MOLECULAR ORDERABL ES Performing Organization Address [facility] Co de Phone Number [facility] [place] [address] * (ABNORMAL) Vancomycin, trough (07/15/2024 2:19 PM EDT) [facility] Vancomycin, Trough 9.7(L) 10.0 - 20.0 mg/L 07/15/2024 3:28 PM EDT [facility] Comment: Varies according to infection source. Blood VENOUS BLOOD SPECIMEN / Unknown IP Care Team Draw / Unknown 07/15/2024 2:19 PM EDT 07/15/2024 3:00 PM EDT Pastora Garcia MD CHEMISTRY ORDERABLES [facility] [place] [address] * CT Angiogram Aortic Lower Extremity Runoff (07/14/2024 11:57 PM EDT) WORKSTATION ID [id number] RAD Anatomical Region Laterality Modality Abdomen Computed Tomogra phy Impressions 07/15/2024 1:13 AM EDT 1. ??No significant aortoiliac inflow stenosis. 2. ??Severe short segment origin stenosis left SFA and moderate multifocal left SFA stenosis. 3. ??Severe origin stenosis proximal left popliteal artery and unchanged left popliteal artery occlusion extending over a 2.6 cm vessel length at and just above the knee. 4. ??Patent three-vessel runoff bilaterally. 5. ??No acute intra-abdominal findings. 6. ??1 x 4 x 5.9 cm low-density intramuscular and/or perimuscular collection involving the distal aspect of the left medial head of gastrocnemius muscle concerning for abscess in the appropriate clinical setting. Thank you for letting us participate in the care of this patient. ??If you are a health care provider and have any questions regarding this report, please contact the number below. ??For patients who have questions please contact the health home health care case manager that requested your imaging first. ? Narrative 07/15/2024 1:13 AM EDT EXAMINATION: CT ANGIOGRAM AORTA LOWER EXTREMITY RUNOFF CLINICAL HISTORY: hx of PAD with worsening left lower extremity tissue loss, assess for distal perfusion, interval change in inflow TECHNIQUE: Helical CTA of the abdomen, pelvis and bilateral lower extremities following the intravenous administration of contrast. 149 cc Omnipaque 350. Maximum intensity projection (MIP) were reformatted. 3-D images were generated on an independent workstation. COMPARISON: None FINDINGS: VASCULAR FINDINGS Abdominal aorta: No stenosis or aneurysm. Celiac: No stenosis. Superior mesenteric artery: No stenosis. Right renal artery: No stenosis. Left renal artery: No stenosis. Inferior mesenteric artery: No stenosis. RIGHT LOWER EXTREMITY Common iliac artery: No stenosis. Internal iliac artery: No stenosis. External iliac artery: Mild stenosis. Common femoral artery: Mild stenosis. Profunda femoris artery: Mild origin stenosis. Superficial femoral artery: No stenosis. Popliteal artery: Mild multifocal stenosis. Anterior tibial artery: Mild origin stenosis. Tibio-peroneal trunk: No stenosis. Posterior tibial artery: No stenosis. Peroneal artery: No stenosis. Dorsalis pedis: No stenosis. Plantar arteries: No gross stenosis. LEFT LOWER EXTREMITY Common iliac artery: No stenosis. Internal iliac artery: Severe origin stenosis. External iliac artery: No stenosis. Common femoral artery: No stenosis. Profunda femoris artery: No stenosis. Superficial femoral artery: Severe origin stenosis. Moderate multifocal stenosis. Popliteal artery: Severe focal origin stenosis. Occlusion extending over an approximately 2.6 cm vessel length at and just [id number], similar to prior. Anterior tibial artery: No stenosis. Tibio-peroneal trunk: No stenosis. Posterior tibial artery: No stenosis. Peroneal artery: No stenosis. Dorsalis pedis: No stenosis. Plantar arteries: No gross stenosis. NON-VASCULAR FINDINGS Lower chest: Minimal dependent atelectasis. Status post sternotomy. Liver: Normal. Bile ducts: Nondilated. Gallbladder: No calcified gallstones. Normal caliber wall. Pancreas: Normal attenuation without ductal dilatation. Spleen: Normal. Adrenals: Normal. Kidneys: Normal. Urinary Bladder: Prominently distended. No wall thickening or calculus. Lymph Nodes: Asymmetrically prominent/mildly enlarged distal left external iliac chain and left inguinal lymph nodes measuring up to 1 and 1.3 cm in short axis respectively. Findings are presumably reactive. Bowel: No dilated bowel loops. No bowel wall thickening. Moderate to large colonic stool burden. Normal appendix. Peritoneum and retroperitoneum: No hemorrhage. No pneumoperitoneum. No fluid collection or mesenteric inflammation. Abdominal wall: Small fat-containing left inguinal hernia. Reproductive organs: Normal size prostate gland. Vasectomy clips. Osseous structures: No acute fracture or suspicious appearing osseous lesion. Metallic BB in the soft tissues between the distal first and second metatarsals is noted. There is low-attenuation along the superficial margin and/or within the distal medial head of left gastrocnemius muscle that measures approximately 1 x 4 x 5.9 cm concerning for possible abscess in the appropriate clinical setting. Procedure Note Geovanna Ray MD - 07/15/2024 EXAMINATION: CT ANGIOGRAM AORTA LOWER EXTREMITY RUNOFF CLINICAL HISTORY: hx of PAD with worsening left lower extremity tissueloss, assess for distal perfusion, interval change in inflow TECHNIQUE: Helical CTA of the abdomen, pelvis and bilateral lowerextremities following the intravenous administration of contrast. 149 cc [id number]. Maximum intensity projection (MIP) were reformatted. 3-D images weregenerated on an independent workstation. COMPARISON: None FINDINGS: VASCULAR FINDINGS Abdominal aorta: No stenosis or aneurysm. Celiac: No stenosis. Superior mesenteric artery: No stenosis. Right renal artery: No stenosis. Left renal artery: No stenosis. Inferior mesenteric artery: No stenosis. RIGHT LOWER EXTREMITY Common iliac artery: No stenosis. Internal iliac artery: No stenosis. External iliac artery: Mild stenosis. Common femoral artery: Mild stenosis. Profunda femoris artery: Mild origin stenosis. Superficial femoral artery: No stenosis. Popliteal artery: Mild multifocal stenosis. Anterior tibial artery: Mild origin stenosis. Tibio-peroneal trunk: No stenosis. Posterior tibial artery: No stenosis. Peroneal artery: No stenosis. Dorsalis pedis: No stenosis. Plantar arteries: No gross stenosis. LEFT LOWER EXTREMITY Common iliac artery: No stenosis. Internal iliac artery: Severe origin stenosis. External iliac artery: No stenosis. Common femoral artery: No stenosis. Profunda femoris artery: No stenosis. Superficial femoral artery: Severe origin stenosis. Moderate multifocal stenosis. Popliteal artery: Severe focal origin stenosis. Occlusion extending overan approximately 2.6 cm vessel length at and just [id number], similar toprior. Anterior tibial artery: No stenosis. Tibio-peroneal trunk: No stenosis. Posterior tibial artery: No stenosis. Peroneal artery: No stenosis. Dorsalis pedis: No stenosis. Plantar arteries: No gross stenosis. NON-VASCULAR FINDINGS Lower chest: Minimal dependent atelectasis. Status post sternotomy. Liver: Normal. Bile ducts: Nondilated. Gallbladder: No calcified gallstones. Normal caliber wall. Pancreas: Normal attenuation without ductal dilatation. Spleen: Normal. Adrenals: Normal. Kidneys: Normal. Urinary Bladder: Prominently distended. No wall thickening or calculus. Lymph Nodes: Asymmetrically prominent/mildly enlarged distal left externaliliac chain and left inguinal lymph nodes measuring up to 1 and 1.3 cm in shortaxis respectively. Findings are presumably reactive. Bowel: No dilated bowel loops. No bowel wall thickening. Moderate tolarge colonic stool burden. Normal appendix. Peritoneum and retroperitoneum: No hemorrhage. No pneumoperitoneum. Nofluid collection or mesenteric inflammation. Abdominal wall: Small fat-containing left inguinal hernia. Reproductive organs: Normal size prostate gland. Vasectomy clips. Osseous structures: No acute fracture or suspicious appearing osseouslesion. Metallic BB in the soft tissues between the distal first and secondmetatarsals is noted. There is low-attenuation along the superficial margin and/orwithin the distal medial head of left gastrocnemius muscle that measuresapproximately 1 x 4 x 5.9 cm concerning for possible abscess in the appropriateclinical setting. IMPRESSION 1. No significant aortoiliac inflow stenosis. 2. Severe short segment origin stenosis left SFA and moderate multifocalleft SFA stenosis. 3. Severe origin stenosis proximal left popliteal artery and unchangedleft popliteal artery occlusion extending over a 2.6 cm vessel length at andjust above the knee. 4. Patent three-vessel runoff bilaterally. 5. No acute intra-abdominal findings. 6. 1 x 4 x 5.9 cm low-density intramuscular and/or perimuscularcollection involving the distal aspect of the left medial head of gastrocnemiusmuscle concerning for abscess in the appropriate clinical setting. Thank you for letting us participate in the care of this patient. If youare a health care provider and have any questions regarding this report,please contact the number below. For patients who have questions please contactthe health home health care case manager that requested your imaging first. Electronically signed by: Geovanna Ray MD, [facility]([phone]), at 07/15/2024 1:13 AM Pastora Garcia MD IMG CT ORDERABLES * XR Foot Min 3 views Left (Generic) (07/14/2024 9:11 PM EDT) WORKSTATION ID [id number] RAD Anatomical Region Laterality Modality Foot Left Digital Radiogra phy Impressions 07/14/2024 10:26 PM EDT 1. ??Soft tissue ulcers at the distal first, second, and fifth toes. 2. ??No radiographic evidence of advanced acute osteomyelitis. Of note, the fifth toe ulcer appears deep and may potentially be exposing the tip of the distal phalanx. Correlate with exam. 3. ??4 mm metallic foreign body/BB in the soft tissues between the first and second metatarsals. Thank you for letting us participate in the care of this patient. ??If you are a health care provider and have any questions regarding this report, please contact the number below. ??For patients who have questions please contact the health home health care case manager that requested your imaging first. ? Narrative 07/14/2024 10:26 PM EDT EXAMINATION: XR FOOT MIN 3 VIEWS LEFT (GENERIC) CLINICAL HISTORY: Necrotic ulcerations to the left great toe, second toe and pinky toe. Evaluate for bony abnormality TECHNIQUE: 3 views LEFT foot COMPARISON: None FINDINGS: Soft tissue ulcerations at the distal aspects of the first, second, and fifth toes consistent with given history. No osseous erosive or destructive change. No periostitis. No tracking soft tissue gas. Joint spaces are maintained. Rounded metallic foreign body/BB measuring 4 mm projects in the soft tissues between the distal first and second metatarsals. Procedure Note Geovanna Ray MD - 07/14/2024 EXAMINATION: XR FOOT MIN 3 VIEWS LEFT (GENERIC) CLINICAL HISTORY: Necrotic ulcerations to the left great toe, second toeand pinky toe. Evaluate for bony abnormality TECHNIQUE: 3 views LEFT foot COMPARISON: None FINDINGS: Soft tissue ulcerations at the distal aspects of the first, second, andfifth toes consistent with given history. No osseous erosive or destructivechange. No periostitis. No tracking soft tissue gas. Joint spaces are maintained.Rounded metallic foreign body/BB measuring 4 mm projects in the soft tissuesbetween the distal first and second metatarsals. IMPRESSION 1. Soft tissue ulcers at the distal first, second, and fifth toes. 2. No radiographic evidence of advanced acute osteomyelitis. Of note, thefifth toe ulcer appears deep and may potentially be exposing the tip of thedistal phalanx. Correlate with exam. 3. 4 mm metallic foreign body/BB in the soft tissues between the firstand second metatarsals. Thank you for letting us participate in the care of this patient. If youare a health care provider and have any questions regarding this report,please contact the number below. For patients who have questions please contactthe health home health care case manager that requested your imaging first. Electronically signed by: Geovanna Ray MD, [facility]([phone]), at 07/14/2024 10:26 PM Arthur Patel DO IMG DX ORDERABLES * Lactate Whole Blood POC (07/14/2024 7:41 PM EDT) Lactate, Whole Blood 1.1 0.5 - 2.2 mmol/L 07/14/2024 7:42 PM EDT [facility] Blood ARTERIAL BLOOD / Unknown 07/14/2024 7:41 PM EDT 07/14/2024 7:42 PM EDT Unknown POINT OF CARE TEST O RDERABLES [facility] [place] [address] * (ABNORMAL) POCT Glucose (06/02/2024 4:12 PM EDT) Only the most recent of28 resultswithin the time period is included. [facility] Glucose, POC 203(H) 65 - 199 mg/dL [facility] Comment: Supplemental ranges: <140 mg/dL before meals <180 mg/dL all other times of the day Blood 06/02/2024 4:12 PM EDT 06/02/2024 4:12 PM EDT Edin Marin MD POINT OF CARE TEST O RDERABLES [facility] [place] [address] * Scan Doc: Telemetry Strips (06/02/2024 10:01 AM EDT) Only the most recent of18 resultswithin the time period is included. Narrative 06/02/2024 10:01 AM EDT Ordered by an unspecified provider. Scanning Provider MEDIA MGR SCAN EXT O RDR/RSLT * (ABNORMAL) Hemogram (06/02/2024 1:52 AM EDT) Only the most recent of6 resultswithin the time period is included. [facility] White Blood Cell 12.8(H) 4.0 - 9.5 x10(3)/mc L [facility] Red Blood Cell 4.56(L) 4.58 - 5.54 x10(6)/mc L [facility] Hemoglobin 13.7 13.7 - 16.5 g/dL [facility] Hematocrit 39.0(L) 40.5 - 48.5 % [facility] Mean Cell Volume 85.5 82.9 - 93.1 fL [facility] Mean Cell Hemoglobin 30.0 27.5 - 32.1 pg [facility] Mean Cell Hemoglobin Concentration 35.1 32.0 - 35.7 g/dL [facility] Platelet 283 145 - 357 x10(3)/mc L [facility] RDW Standard Deviation 35.7(L) 36.0 - 45.0 fL [facility] RDW coefficient of variation 11.6 11.4 - 13.8 % [facility] Mean Platelet Volume 10.2 7.6 - 12.9 fL [facility] NRBC% auto 0.0 % [facility] NRBC Absolute 0.000 0.000 - 0.000 x10(3)/mc L [facility] Blood 06/02/2024 1:52 AM EDT 06/02/2024 2:06 AM EDT Narrative Resulting Agency Comment Spec In Lab Lili Tapia MD HEMATOLOGY ORDERA BLES [facility] [place] [address] * (ABNORMAL) Differential, Automated (06/02/2024 1:52 AM EDT) Only the most recent of6 resultswithin the time period is included. Neutrophil % 75.2 % [facility] Neutrophil Absolute 9.62(H) 1.70 - 6.10 x10(3)/mc L [facility] Lymph % 12.7 % [facility] Lymphocytes Abs 1.6 0.9 - 3.2 x10(3)/mc L [facility] Monocyte % 7.8 % [facility] Monocyte Abs 1.0(H) 0.3 - 0.9 x10(3)/mc L [facility] Eos % 1.1 % [facility] Eosinophils Abs 0.1 0.0 - 0.4 x10(3)/mc L [facility] Basophil % 0.9 % [facility] Baso Absolute 0.1 0.0 - 0.1 x10(3)/mc L [facility] Immature Gran % 2.30 % [facility] Comment: Immature granulocytes(IG's)percentage and absolute count will include metamyelocytes, myelocytes, and promyelocytes. Blood smears from CBCs yielding IG's will be scanned manually for concordance. If this scan disagrees with the automated IG or if promyelocytes are noted, a manual differential will be performed. Immature Gran Absolute 0.29(H) 0.00 - 0.04 x10(3)/mc L [facility] Blood 06/02/2024 1:52 AM EDT 06/02/2024 2:06 AM EDT Narrative Resulting Agency Comment Spec In Lab Lili Tapia MD HEMATOLOGY ORDERA BLES [facility] [place] [address] * Duplex for DVT, Leg, Unilat (05/31/2024 7:35 AM EDT) VB Text Report Department: Vascular Surgery Lab Patient: [id number] (GEOVANNA DIXON) CPT: [id number] Referring Physician: EDIN MARIN ?? Phone: Indications: [...] lab database for comparison. Electronically Signed by: HERMILA VÁSQUEZ on 2024-06-02 09:55:39 AM [facility] VB Text Report End of Report [facility] 05/31/2024 7:35 AM EDT Edin Marin MD VASCULAR ORDERABLES [facility] * Rapid Drug Screen, Urine (IVAN Request) (05/31/2024 5:00 AM EDT) IVAN Conf Requested No [facility] IVAN Requested See Comment [facility] Comment:Refer to Rapid Drug Screen w/o Confirmation, Urine for results. Urine 05/31/2024 5:00 AM EDT 05/31/2024 5:31 AM EDT Narrative Resulting Agency Comment Spec In Lab Edin Marin MD URINE ORDERABLES [facility] [place] [address] * (ABNORMAL) Rapid Drug Screen w/o Confirmation, Urine (05/31/2024 5:00 AM EDT) Barbiturates Screen, Urine None Detected None Detected [facility] Comment: The barbiturate screen detects [...] Benzodiazepines Screen, Urine None Detected None Detected [facility] Comment: The benzodiazepines screen detects [...] Cocaine Screen, Urine Presumptive Pos(A) None Detected [facility] Comment: The cocaine metabolites screen detects benzoylecgonine (Cocaine Metabolite) at concentrations >150 ng/mL. A ? Presumptive Positive? result indicates that the screening result was positive but has not yet been confirmed by a highly-specific method. As with any screen, occasional false positive results from cross-reacting substances may occur. Not for Medico-Legal Purposes. Methadone Metabolites Screen, Urine None Detected None Detected [facility] Comment: The methadone metabolite screen detects EDDP (major methadone metabolite) at concentrations >100 ng/mL. A ? Presumptive Positive? result indicates that the screening result was positive but has not yet been confirmed by a highly-specific method. As with any screen, occasional false positive results from cross-reacting substances may occur. Not for Medico-Legal Purposes. Opiate Screen, Urine None Detected None Detected [facility] Comment: The opiates screen detects [...] Cannabinoid Screen, Urine None Detected None Detected [facility] Comment: The marijuana metabolites screen detects the THC metabolite (97-bbz-1-carboxy-delta 9-THC) at concentrations >20 ng/mL. A ? Presumptive Positive? result indicates that the screening result was positive but has not yet been confirmed by a highly-specific method. As with any screen, occasional false positive results from cross-reacting substances may occur. Not for Medico-Legal Purposes. Oxycodone Screen, Urine Presumptive Pos(A) None Detected [facility] Comment: The oxycodone screen detects oxycodone and oxymorphone at concentrations >100 ng/mL. A ? Presumptive Positive? result indicates that the screening result was positive but has not yet been confirmed by a highly-specific method. As with any screen, occasional false positive results from cross-reacting substances may occur. Not for Medico-Legal Purposes. Buprenorphine Screen, Urine None Detected None Detected [facility] Comment: The buprenorphine screen detects [...] characteristics of this test were determined by [facility] in accordance with CLIA requirements. This laboratory is qualified under CLIA to perform high-complexity testing. Fentanyl Screen, Urine None Detected None Detected [facility] Comment: The fentanyl screen detects [...] characteristics of this test were determined by [facility] in accordance with CLIA requirements. This laboratory is qualified under CLIA to perform high-complexity testing. Tricyclics Screen, Urine Presumptive Pos(A) None Detected [facility] Comment: The tricyclics screen detects [...] characteristics of this test were determined by [facility] in accordance with CLIA requirements. This laboratory is qualified under CLIA to perform high-complexity testing. Ethanol Screen, Urine None Detected None Detected [facility] Comment:This urine ethanol a ssay detects ethanol at concentrations >/= 100 mg/L. Amphetamines Screen, Urine None Detected None Detected [facility] Comment: The amphetamine screen detects d-amphetamine and d-methamphetamine at concentrations >300 ng/mL. A ? Presumptive Positive? result indicates that the screening result was positive but has not yet been confirmed by a highly-specific method. As with any screen, occasional false positive results from cross-reacting substances may occur. Not for Medico-Legal Purposes. Creatinine Specimen Validity Test, Urine 58 >=20 mg/dL [facility] Chromate Specimen Validity Test, Urine <2.0 <=49.9 mg/L [facility] Nitrite Specimen Validity Test, Urine <50 <=499 mg/L [facility] Oxidant Specimen Validity Test, Urine 10 <=199 mg/L [facility] pH Specimen Validity Test, Urine 6.8 3.0 - 10.9 [facility] Adulterants Screen, Urine None Detected None Detected [facility] Comment:No adulteration of t his urine sample was detected. Urine 05/31/2024 5:00 AM EDT 05/31/2024 5:31 AM EDT Narrative Resulting Agency Comment Spec In Lab Rubio Grimaldo MD CHEMISTRY ORDERABL ES Performing Organization Address City/State/[facility] Co de Phone Number [facility] [place] [address] * (ABNORMAL) Urinalysis without microscopic (05/31/2024 5:00 AM EDT) Glucose, Urine Dipstick >=1000(Criti masoud) Negative mg/dL [facility] Comment: Urinalysis result NOT critical without a combination of Glucose greater than or equal to 500 mg/dL AND Ketones greater than or equal to 80 mg/dL Protein, Urine Dipstick Negative Negative mg/dL [facility] Bilirubin, Urine Dipstick Negative Negative mg/dL [facility] Comment: Clinical correlation required for positive Urine Bilirubin results as false positive may occur with some drugs and drug related products. If a false positive is suspected a serum total bilirubin should be considered if clinically indicated. Urobilinogen, Urine Dipstick Normal Normal mg/dL [facility] pH, Urn (dipstick) 7.0 5.0 - 8.0 [facility] Blood, Urine Dipstick Negative Negative mg/dL [facility] Ketone, Urine Dipstick Negative Negative mg/dL [facility] Nitrite, Urine Dipstick Negative Negative [facility] Leukocytes, Urine Dipstick Negative Negative mcL [facility] Appearance, Urine Dipstick Clear Clear [facility] Specific [place] Urine Automated >=1.030(A) 1.005 - 1.030 [facility] Color, Urine Dipstick Yellow Yellow [facility] Urine 05/31/2024 5:00 AM EDT 05/31/2024 5:31 AM EDT Narrative Resulting Agency Comment Spec In Lab Edin Marin MD URINE ORDERABLES Performing Organization Address City/State/[facility] Co de Phone Number [facility] [place] [address] * CT Lower Extremity w Contrast Left (05/30/2024 7:27 PM EDT) [employer] Signature WORKSTATION ID [id number] RAD Anatomical Region Laterality Modality Hip, Leg, [...] who have questions please contact the health home health care case manager that requested your imaging first. ? Electronically signed by: Ignacia Chi MD, [facility] ([phone]), at 05/31/2024 3:33 PM Narrative 05/31/2024 3:33 [...] patients who have questions please contactthe health home health care case manager that requested your imaging first. Edin Marin MD IMG CT ORDERABLES * NM Pharmacologic Stress CT Component (05/30/2024 11:20 AM EDT) WORKSTATION ID [id number] [facility] Anatomical Region Laterality Modality Nuclear Medicine Narrative [...] who have questions please contact the health home health care case manager that requested your imaging first. ? Electronically signed by: Angel Oliva MD, [facility] ([phone]), at 05/30/2024 2:34 PM Procedure Note Angel [...] patients who have questions please contactthe health home health care case manager that requested your imaging first. Electronically signed by: Angel Oliva MD, [facility]([phone]), at 05/30/2024 2:34 PM Edin Marin MD IMG NM ORDERABLES * Nuclear Pharmacologic Stress Cardiology (05/30/2024 10:48 AM EDT) Anatomical Region Laterality Modality Other Edin Marin MD CARDIAC SERVICES ORD ERABLES * NM Pharmacologic Stress and Rest Myocardial Perfusion (05/30/2024 10:40 AM EDT) WORKSTATION ID [id number] [facility] Anatomical Region Laterality Modality Nuclear Medicine Impressions [...] who have questions please contact the health home health care case manager that requested your imaging first. ? Electronically signed by: Angel Oliva MD, [facility] ([phone]), at 05/30/2024 2:33 PM Narrative 05/30/2024 2:33 [...] patients who have questions please contactthe health home health care case manager that requested your imaging first. Electronically signed by: Angel Oliva MD, [facility]([phone]), at 05/30/2024 2:33 PM Edin Marin MD IMG NM ORDERABLES * Lower extremity vein map, bilat (05/29/2024 8:01 PM EDT) VB Text Report Department: Vascular Surgery Lab Patient: [id number] (GEOVANNA DIXON) CPT: [id number] Referring Physician: EDIN MARIN ?? Phone: Indications: [...] EDT) Ia-2 Ab (MARCH) 0.00 <=0.02 nmol/L [facility] Comment: ADDITIONAL INFORMATION This test was developed and its performance characteristics determined by [facility] in a manner consistent with CLIA requirements. This test has not been cleared or approved by the U.S. Food and Drug Administration. Test Performed by: [facility] - [address] [address] Tree Marker: Varun Steen Ph.D.; CLIA# [id number] Blood 05/29/2024 7:55 PM EDT 05/30/2024 8:43 AM EDT Narrative Resulting Agency Comment Spec In Lab Edin Marin MD CHEMISTRY ORDERABLES [facility] [place] [id number] * GAD65 Antibody Assay (05/29/2024 7:55 PM EDT) [facility] Gad65 Ab (MARCH) 0.00 <=0.02 nmol/L [facility] Comment: ADDITIONAL INFORMATION This test was developed and its performance characteristics determined by [facility] in a manner consistent with CLIA requirements. This test has not been cleared or approved by the U.S. Food and Drug Administration. Test Performed by: [facility] - [address] [address] Tree Marker: Varun Steen Ph.D.; CLIA# [id number] Blood 05/29/2024 7:55 PM EDT 05/30/2024 8:43 AM EDT Narrative Resulting Agency Comment Spec In Lab Edin Marin MD LAB SEND OUT ORDERAB LES Performing Organization Address [facility] Co de Phone Number [facility] [place] [address] * TSH (05/29/2024 7:55 PM EDT) Thyroid Stimulating Hormone 1.03 0.27 - 4.20 mcIU/mL [facility] Comment: Reference Interval (mcIU/mL): Females: ??First Trimester: 0.23-3.88 ??Second Trimester: 0.22-3.90 ??Third Trimester: 0.44-4.66 Blood 05/29/2024 7:55 PM EDT 05/29/2024 8:00 PM EDT Narrative Resulting Agency Comment Spec In Lab Edin Marin MD CHEMISTRY ORDERABLES Performing Organization Address [facility] de Phone Number [facility] [place] [address] * EKG 12 Lead (05/29/2024 2:51 PM EDT) Only the most recent of2 resultswithin the time period is included. Ventricular rate 85 BPM MUSE SYSTEM Atrial Rate 85 BPM MUSE SYSTEM P-R Interval 156 ms MUSE SYSTEM QRS Duration 114 ms MUSE SYSTEM Q-T Interval 384 ms MUSE SYSTEM QTC Calculated (Bezet) 456 ms MUSE SYSTEM Calculated P [place] 16 degrees MUSE SYSTEM Calculated R [place] 21 degrees MUSE SYSTEM Calculated T [place] 15 degrees MUSE SYSTEM INTERPRETATION Normal sinus rhythm Normal ECG When compared with ECG of 28-MAY-2024 19:54, Premature ventricular complexes are no longer Present Confirmed by MD Dian, Asad ([id number]) on 05/30/2024 1:27:54 PM MUSE SYSTEM 05/29/2024 2:51 PM EDT 05/30/2024 1:27 PM EDT Vibha Tierney APRN ECG ORDERABLES Performing Organization Address [facility] Co de Phone Number MUSE SYSTEM * ECHO COMPLETE W CONTRAST (05/29/2024 1:29 PM EDT) Anatomical Region Laterality Modality Cardiac Other 05/29/2024 10:3 3 AM EDT Narrative 05/29/2024 2:27 PM EDT [address] [place] [address] ? Echocardiogram Report Name: GEOVANNA DIXON JR. ? Study Date: 05/29/2024 10:33 AM ? Patient Location: [id number] A : 1975 ? Height: 178 cm ? Account: [id number] Age: 49 yrs ? Weight: 102 kg Gender: Male ?BSA: 2.2 m2 Ordering Physician: EDIN MARIN Referring Physician: KAM SKINNER Performed By: Melina Marinelli RDCS Reason For Study: Limb ischemia Exam Location: [facility]. Interpretation Summary -Left ventricular systolic function is mildly reduced. The left ventricular ejection fraction is 47% by Stacy's biplane. There is akinesis of the inferior wall. -The right ventricle is of normal size. Right ventricular systolic function is normal. -No significant valvular disease noted on this study. -Compared with the previous echo performed on 08/21/23, the ejection fraction has decreased. Procedure Complete-[id number]. An agitated saline bubble contrast study was [...] Note Deandre Jones MD - 05/29/2024 [address] [place] [address] Echocardiogram Report Name: GEOVANNA DIXON JR. Study Date: 410:33 AM Patient Location: [id number] A : 1975 Height: 178 cm Account: [id number] Age: 49 yrs Weight: 102 kg Gender: Male BSA: 2.2 m2 Ordering Physician: EDIN MARIN Referring Physician: KAM SKINNER Performed By: Melina Marinelli RDCS Reason For Study: Limb ischemia Exam Location: [facility]. Interpretation Summary -Left ventricular systolic function is mildly reduced. The leftventricular ejection fraction is 47% by Stacy's biplane. There is akinesis of theinferior wall. -The right ventricle is of normal size. Right ventricular systolicfunction is normal. -No significant valvular disease noted on this study. -Compared with the previous echo performed on 08/21/23, the ejectionfraction has decreased. Procedure Complete-[id number]. An agitated saline bubble contrast study was [...] (ABNORMAL) Hemoglobin A1c (05/29/2024 2:13 AM EDT) [facility] Hemoglobin A1c 12.6(H) 4.3 - 5.6 % [facility] Comment: Reference Range: 4.3 - [...] Mellitus, Diabetes Care 2013; 36: Suppl. 1, S67-74 Estimated Average Glucose 316 mg/dL [facility] Blood 05/29/2024 2:13 AM EDT 05/29/2024 8:03 AM EDT Narrative Resulting Agency Comment Spec In Lab Edin Marin MD CHEMISTRY ORDERABLES Performing Organization Address City/[facility]/ZIP Co de Phone Number [facility] [place] [address] * Type and Screen Validity (05/28/2024 6:20 PM EDT) T&S only valid at [facility]ORATORY Comment:This Type and Screen result is only valid at the [facility] Blood 05/28/2024 6:20 PM EDT 05/28/2024 6:24 PM EDT Narrative Resulting Agency Comment Spec In Lab María Ugalde MD BLOOD BANK LAB ORDER RANDELL [facility] [place] [address] * ABORH Recheck Status (05/28/2024 6:20 PM EDT) ABORH Type Recheck Completed [facility] Blood 05/28/2024 6:20 PM EDT 05/28/2024 6:24 PM EDT Narrative Resulting Agency Comment Spec In Lab María Ugalde MD BLOOD BANK LAB ORDER RANDELL [facility] [place] [address] * Gold Tube HOLD (05/28/2024 6:20 PM EDT) [facility] Gold Hold Sample in lab. [facility] Blood Venous Draw / Unknown 05/28/2024 6:20 PM EDT 05/28/2024 6:25 PM EDT Juan Santana MD CHEMISTRY ORDERABLES Performing Organization Address City/[facility]/ZIP Co de Phone Number [facility] [place] [address] * Lactate, whole blood, send to lab ([facility]) (05/28/2024 6:20 PM EDT) [facility] Lactate WB 1.6 0.5 - 2.2 mmol/L [facility] Blood 05/28/2024 6:20 PM EDT 05/28/2024 6:23 PM EDT Narrative Resulting Agency Comment Spec In Lab Arthur Patel DO CHEMISTRY ORDERABLES [facility] [place] [address] * APTT (05/28/2024 6:20 PM EDT) [facility] Partial Thromboplastin Time 26 25 - 37 sec [facility] Comment: The PTT is NOT appropriate for heparin monitoring. Use the Anti-Xa level for heparin monitoring (HEP UFH) or LMWH monitoring (HEP LMW). A PTT less than 37 seconds generally indicates adequate hemostasis. Blood 05/28/2024 6:20 PM EDT 05/28/2024 6:24 PM EDT Narrative Resulting Agency Comment Spec In Lab Arthur Patel DO HEMATOLOGY ORDERABLE S Performing Organization Address [facility] de Phone Number [facility] [place] [address] * Prothrombin Time (05/28/2024 6:20 PM EDT) Prothrombin Time 10.6 9.4 - 12.5 sec [facility] International Normalization Ratio 0.9 [facility] Comment: An INR <2.0 indicates [...] DO HEMATOLOGY ORDERABLE S Performing Organization Address [facility] Co de Phone Number [facility] [place] [address] * Type and screen ([facility]/BABITA) (05/28/2024 6:20 PM EDT) ABORH Type A POSITIVE [facility] Patient BB History Found [facility] Expires at 0002 on: 05-31-2024 [facility] Ab Screen Interp Negative [facility] Blood 05/28/2024 6:20 PM EDT 05/28/2024 6:20 PM EDT Narrative [facility] - 05/28/2024 6:20 PM EDT This Type and Screen result is only valid at the [facility] Resulting Agency Comment Spec In Lab María Ugalde MD BLOOD BANK LAB ORDER RANDELL Performing Organization Address [facility] Co de Phone Number [facility] [place] [address] * Film Library- Storage Only CT Abdomen & Pelvis (05/28/2024 11:50 AM EDT) Narrative [facility] - 05/28/2024 11:50 AM EDT This exam is auto-finalizing. It's purpose is for storage only. Edin Marin MD IMG FILM LIBRARY ORD ERABLES Performing Organization Address [facility] Co de Phone Number [place], [place] * Microalbumin, urine, random (01/06/2012 9:03 PM EST) Creatinine, Urine 136 mg/dL CE RNER MILLENNIUM Albumin, Urine 14.4 mg/L CERNE R MILLENNIUM Albumin / Creatinin Ratio, Urine 11 mcg/mg Cr CERNER MILLENNIUM Comment: Reference Range* Random collection (mcg/mg creatinine) Normal ?<30 Microalbuminuria ?? 30 - 300 Clinical Albuminuria ?? >300 *[employer]. Diabetic Nephropathy. Diabetes Care 1997;(Suppl 1):S24-S27 Exercise within 24 hour, infection, fever, CHF, marked hyperglycemia, and marked hypertension may elevate urinary albumin excretion over baseline values. Urine specimen (specimen) 01/06/2012 9:03 PM EST 01/06/2012 10:28 PM EST Narrative Resulting Agency Comment Spec In Lab Alfonso Morales MD URINE ORDERABLES Performing Organization Address City/[facility]/ZIP Co de Phone Number CERNER MILLENNIUM * HIV (12/30/2011 10:18 AM EST) HIV 1/2 Ab Negative CERNER MILLENNIUM Blood specimen (specimen) 12/30/2011 10:18 AM EST 12/30/2011 10:28 AM EST Narrative Resulting Agency Comment Spec In Lab Asif Rene MD CHEMISTRY ORDERABLES ARIAN CAENNIUM from Last 3 Months or Most Recently Relevant to Health Maintenance Advance Directives * Attempt Cardiopulmonary Resuscitation - Inpatient (Latest Code Status on File) Date Activated Date Inactivated Comments 07/14/2024 9:58 PM 07/21/2024 10:14 PM Question Answer Comments Code Status decision made by: Patient Content of discussion: its not my time * Attempt Cardiopulmonary Resuscitation - Inpatient Date Activated Date Inactivated Comments 05/28/2024 8:01 [...] is based on Patients wishes. Care Teams [employer] Plate Setter Relationship Specialty Start Date End Date None None PCP - General 05/27/24
--- OUTSIDE RECORDS SUMMARY | 2024-07-25 15:01 | XMS_ITS | Encounter Summary ---
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 and importance of adhering to WB status for optimal healing/recovery. Provided patient education on importance of checking skin daily and keeping wound clean in order to prevent infection and protect skin integrity. Pt verbalized and demonstrated understanding. During today's assessment, pt demonstrated bed mobility independently, transfers with FWW with modified independence and ambulated around unit with FWW with modified independence all while adhering to heel weight bearing in forefoot offloading shoe LLE. Pt demonstrated steady gait, with no loss of balance noted throughout. Pt demonstrated ability to ascend/descend platform stair safely with FWW with modified independence while adhering to heel weightbearing in forefoot offloading shoe LLE throughout. Anticipate that patient may be able to discharge home with supervision and family/friend assistance as needed once medically ready for hospital discharge. Do not anticipate any further inpatient physical therapy needs at this time, however will continue to monitor shall a need arise. Discharge Recommendations: Based on current findings- home with supervision and family/friend assistance as needed Discharge recommendation is based on the patient's current physical impairments, prior functional status, potential to return to prior level of function, patient motivation, reported home support, potential for functional gains, current level of endurance, reported home environment and anticipated trajectory of progress and may change based on patient progress during this hospitalization. Inpatient Physical Therapy Plan: Therapy Frequency (PT): Monitor Consult Recommendations: No other consults recommended at this time. Equipment needs: Anticipated Equipment Needs at Discharge (PT): walker, front wheeled Time IN / OUT: 12:16-12:54 Total Time: 38 minutes; re-evaluation Dominique Anne PT, Doctor of Physical Therapy Pager: [phone] Physical Therapy Inpatient Rehabilitation Department * Carlos Enrique Knowles RN - 07/20/2024 10:00 PM EDT Four Eyes Skin Assessment Four Eyes skin assessment was performed on admission to the unit by Wilfredo Randolph RN and Carlos Enrique Rouse RN. Patient had the following devices at the time of this assessment: Peripheral IVs to R and L forearm. Dressing on L foot and R groin dry and intact, otherwise skin intact. Carlos Enrique Knowles RN * Rubio Grimaldo MD - 07/20/2024 9:04 PM EDT Vascular Surgery Post Op Check Geovanna Dixon Jr. is a 49 y.o. male status post a diagnostic LLE angiogram via R common femoral access with Mynx. S: Reports no right groin pain. Reports no left leg or foot pain. Reports no fevers, chills, nausea, vomiting, chest pain, or shortness of breath. Offers no complaints O: Temp: [36.5 ??C (97.7 ??F)] Heart Rate: -- Resp: [18] BP: (123)/(81) SpO2: [98 %] Heart Rate from SpO2: [84 bpm] I/O last 3 completed shifts: In: 3660 [P.O.:2930; I.V.:630; IV Piggyback:100] Out: 3500 [Urine:3500] No intake/output data recorded. Physical Exam: GGEN: resting comfortably, NAD CHEST: comfortable work of breathing on RA CV: regular rate ABD: soft, nondistended EXTR: Left foot with dressing, cdi without strikethrough. Toe D2 TMA closed, sutures intact, no signs of infection or surrounding erythema. Well approximated. No visualized drainage, no palpable fluctuance. Patient is able to demonstrate movement of his toes and feet. Sensation intact distally. Pulses: Femoral Lt 2+ palpable, Rt 1+ palpable. Doppler signals left DP and PT NEURO: awake and alert, grossly intact, nonfocal, follows commands Last wbc, hgb, hct plt Recent Labs 07/20/24 0342 WBC 16.61* HGB 13.0* HCT 39.2* Last 3 wbc, hgb, hct plt Recent Labs 07/20/24 0342 07/19/24 0345 07/18/24 0333 WBC 16.61* 12.45* 11.56* HGB 13.0* 13.6* 13.4* HCT 39.2* 41.0 40.2* PLATELET 458* 421* 392* AP Geovanna Dixon Jr. is a 49 y.o. male status post a diagnostic LLE angiogram via R common femoral access with Mynx. He is currently in stable condition, pain is well controlled, and recovering well. - Bedrest - Vein mapping - Resume heparin 500/hr - Resume diet - Floor status Rubio Grimaldo MD Vascular Surgery 07/20/24 [id number] * Dominique Anne PT - 07/20/2024 2:05 PM EDT Physical Therapy Note Document type: Contact Total minutes, Physical Therapy: 0 (non-billable) Reason: Attempted to see patient for physical therapy re-evaluation today, however pt was off the floor when PT attempted 2 times today. Will defer physical therapy re-evaluation at this time becauseof this, however will continue to follow and see for physical therapy re-evaluation once medically a ppropriate/available. Appreciate any updated activity orders/precautions. Dominique Anne PT, Doctor of Physical Therapy Pager: [phone] Physical Therapy Inpatient Rehabilitation Department * Hailey Nick RN - 07/20/2024 10:00 AM EDT ANGIO NURSING DATABASE Name: Geovanna Dixon Jr. Date of : 1975 AGE: 49 y.o. [address]: [address] [place] [id number] Phone: [phone] (home) Mobile: Telephone Information: Referring Provider: Herminio Alcantara REASON FOR VISIT: Order Questions Answers Laterality Left Access Site? right Reason for exam and clinical history: LLE CLTI Is the patient on anticoagulant / antiplatelet therapy ? Aspirin,Heparin No data recorded No Known Allergies Pertinent PMH: Patient Active Problem List Diagnosis Code HTN (hypertension) I10 Hyperlipidemia E78.5 Depression F32.A Narcolepsy G47.419 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 (SVG to PDA closed 08/2013) I25.10 NSTEMI (non-ST elevated myocardial infarction) I21.4 Diabetes mellitus E11.9 Obesity E66.9 Critical limb ischemia of left lower extremity I70.222 Peripheral artery disease I73.9 Date/Procedure Meds Given/Comments 07/20/24 VS LLE Arteriogram Ancef 2gm, Fentanyl 100 mcg, Versed 2 mg 0930 to procedure room 3 via stretcher. Onto table supine. All monitors, O2, safety strap in place.Meds per protocol. Arterial Puncture Post Procedure Time of Arterial Puncture: 958 Site: RCF Closure device used: 5F Mynx Time sheath removed: 1019 Time of hemostasis: 1029 Hematoma present?: no Anticipated up time: flat 2 hours Laboratory Results: Lab Results Component Value Date INR 0.9 05/28/2024 Lab Results Component Value Date CREATININE 0.53 (L) 07/20/2024 CREATININE 0.52 (L) 06/02/2024 Lab Results Component Value Date K 4.2 07/20/2024 K 4.0 06/02/2024 Lab Results Component Value Date PLATELET 458 (H) 07/20/2024 PLATELET 283 06/02/2024 * Thuy Jiang APRN - 07/20/2024 8:49 AM EDT Images from the original note were not included. .Follow Up Diabetes Consult Patient Interview Saw Geovanna. He and his mother are working on him getting a primary care provider. He knows that that is one of his most important tasks to do when he goes home is to follow-up on his diabetes care and control. He seems engaged in this effort. Objective Temp: [36.1 ??C (97 ??F)-36.9 ??C (98.4 ??F)] Heart Rate: [77-82] Resp: [11-18] BP: (112-146)/(75-96) SpO2: [93 %-100 %] Heart Rate from SpO2: [77 bpm-91 bpm] Current Regimen Insulin glargine 50 units QHS Lispro Correction: Custom 1:15 correction for BG >140 Q4hrs Lispro Meal & Snack-associated: 1 units: 4g of carbohydrates Diet: Carb Controlled 60/60/75g Monitoring: BG Q4 Recent Glucose Levels Recent Labs 07/20/24 0812 07/20/24 0341 07/20/24 0056 07/19/24 2304 07/19/24 1938 07/19/24 1648 07/19/24 1221 07/19/24 1124 07/19/24 0721 07/19/24 0424 07/19/24 0001 07/18/24 2146 POCGLU 119 204* 342* 296* 251* 171 143 111 195 118 186 185 ASSESSMENT Geovanna Dixon Jr. is a 49 y.o. 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 Diabetes suboptimally controlled and complicated by infection, poor adherence to medications at baseline. Currently variable blood glucose levels while hospitalized requiring adjustment of insulin regimen and DM medications. Geovanna has poorly controlled DM at baseline, likely secondary to not taking his home medications, including insulin and Trulicity. FROM LAKEISHA's discussion 07/18: Geovanna, his mother Cony, and I talked about a discharge plan, whichwill include long and short-acting insulin in order to meet BG goals for wound healing. He agrees to this, and appreciates instructions and support. He can restart his Trulicity after discharge, and lispro doses will likely decrease - he can f/u with PCP for titration. DC instructions drafted belowand will need updates before DC. PLAN Insulin glargine 50 units QHS Lispro Correction: Custom 1:15 correction for BG >140 Q4hrs Lispro Meal & Snack-associated: 1 units: 4g of carbohydrates Diet: Carb Controlled 60/60/75g Monitoring: BG Q4 Discharge Planning/longterm diabetes care: Medications - Outpatient treatment regimen recommendations pending based on the hospital course. Home: Metformin 1000mg BID - restart on discharge. Ran out of Lantus, Humalog, Jardiance, Trulicity months ago -d/t not filling prescriptions. He believes he has refills available. Plan to restart Trulicity and titrate to max tolerated dose, with likely subsequent lispro reduction. Hold Jardiance until wounds are healed. Monitoring - BG tid ac & hs Follow-up: No PCP currently - Needs referral to Outpatient Endocrinology per Supplies: Needs meter/strips/lancets on discharge, and updated insulin orders. 40 minutes of this 50 minute visit was spent with the patient in counseling on diabetes and treatment plan, reviewing all glucose and insulin data as well as relevant laboratory results with the patient, and coordination of care on the inpatient unit including nursing and primary team. * Rubio Grimaldo MD - 07/20/2024 8:04 AM EDT Vascular Surgery Pre-Angio Note Geovanna Llanos Zack Winter HPI: Geovanna Dixon JrFlorencio is a 49 y.o. male with CLTI who presents to IR for LLE angiogram with possible intervention. Past Medical History: Diagnosis Date Depression Hyperlipidemia Hypertension Narcolepsy Obesity Medications Current Facility-Administered Medications Ordered in Epic Medication Dose Route Frequency Provider Last Rate Last Admin heparin (porcine) (5,000 units/1 mL) subcutaneous injection 5,000 Units 5,000 Units Subcutaneous Q8H Cristiano Pearson MD 5,000 Units at 07/20/24 0625 insulin lispro (HumaLOG;Admelog) (100 unit/mL) subcutaneous injection vial 1-11 Units 1-11 Units Subcutaneous Q4H Cristiano Pearson MD 5 Units at 07/20/24 0342 insulin lispro (HumaLOG;Admelog) (100 unit/mL) subcutaneous injection vial 0-20 Units 0-20 Units Subcutaneous TID PRN Cristiano Jones MD insulin lispro (HumaLOG;Admelog) (100 unit/mL) subcutaneous injection vial 0-20 Units 0-20 Units Subcutaneous TID Cristiano Jones MD 11 Units at 07/19/24 1800 insulin glargine-ygfn (Semglee) (100 unit/mL) subcutaneous injection vial 50 Units 50 Units Subcutaneous Nightly Cristiano Jones MD 50 Units at 07/19/242007 protriptyline (Vivactil) tablet 10 mg 10 mg Oral TID Cristiano Jones MD 10 mg at 07/19/242005 glucose (Glutose) 40% oral geL 15-30 g of glucose Buccal Q15 Min PRN Cristiano Jones MD Or dextrose 10% infusion 250 mL Intravenous Q15 Min PRN Cristiano Jones MD Or glucagon (Glucagen) (1 mg/mL) injection solution 1 mg 1 mg Intramuscular Q15 Min PRN Cristiano Jones MD piperacillin-tazobactam (Zosyn) 3.375 g vial attach to sodium chloride 0.9% 50 mL Mini-Bag Plus 3.375 g Intravenous Q8H Cristiano Jones MD 12.5 mL/hr at 07/20/24 0412 3.375 g at 07/20/24 0412 acetaminophen (Tylenol) tablet 975 mg 975 mg Oral Q6H PRN Cristiano Jones MD 975 mg at 07/19/24 2305 senna-docusate (Pericolace) 8.6-50 mg per tablet 2 tablet 2 tablet Oral BID Cristiano Jones MD 2 tablet at 07/15/24 1609 polyethylene glycoL (Miralax) packet 17 g 17 g Oral Daily PRN Cristiano Jones MD And bisacodyL (Dulcolax) suppository 10 mg 10 mg Rectal Daily PRN Cristiano Jones MD And bisacodyl EC (Dulcolax) tablet 10 mg 10 mg Oral BID PRN Cristiano Jones MD And lactulose (Chronulac) (0.67 gram/mL) oral liquid 20 g 20 g Oral Daily PRN Cristiano Jones MD And lactulose (Chronulac) (0.67 gram/mL) oral liquid 20 g 20 g Oral Daily PRN Cristiano Jones MD And magnesium citrate oral liquid 296 mL 296 mL Oral Once PRN Cristiano Jones MD aspirin EC tablet 81 mg 81 mg Oral Daily Cristiano Jones MD 81 mg at 07/19/24 1303 atorvastatin (Lipitor) tablet 80 mg 80 mg Oral QPM Cristiano Jones MD 80 mg at 07/19/24 1725 losartan (Cozaar) tablet 50 mg 50 mg Oral Daily Cristiano Jones MD 50 mg at 07/19/24 1304 metoprolol succinate XL (Toprol-XL) tablet 25 mg 25 mg Oral Daily Cristiano Jones MD 25 mg at 07/19/24 1303 pantoprazole EC (Protonix) tablet 40 mg 40 mg Oral Daily Cristiano Jones MD 40 mg at 07/18/24 0837 venlafaxine (Effexor) tablet 225 mg 225 mg Oral Daily Cristiano Jones MD 225 mg at 07/19/24 1306 sodium chloride 0.9 % (flush) (BD PosiFlush Normal Saline 0.9) flush 5 mL 5 mL Intravenous BID Cristiano Jones MD 5 mL at 07/19/242007 sodium chloride 0.9 % (flush) (BD PosiFlush Normal Saline 0.9) flush 5-20 mL 5- 20 mL Intravenous Q1Min PRN Cristiano Jones MD lidocaine (Xylocaine) 1% (10 mg/mL) injection 3 mg 0.3 mL Subcutaneous Once PRN Halie Jones MD melatonin tablet 3 mg 3 mg Oral Nightly PRN Cristiano Jones MD ondansetron ODT (Zofran-ODT) disintegrating tablet 4 mg 4 mg Oral Q8H PRN Cristiano Jones MD Or ondansetron (pf) (Zofran) (2 mg/mL) injection 4 mg 4 mg Intravenous Q8H PRN Cristiano Jones MD prochlorperazine (Compazine) tablet 10 mg 10 mg Oral Q6H PRN Cristiano Jones MD Or prochlorperazine (Compazine) (5 mg/mL) injection 10 mg 10 mg Intravenous Q6H PRN Cristiano Joens MD No current Epic-ordered outpatient medications on file. Allergies No Known Allergies PE: BP 121/79 (BP Location (NBP): Left arm, Patient Position: Lying) Pulse 82 Temp 36.7 ??C (98.1 ??F) (Oral) Resp 18 Ht 177.8 cm (5' 10) Wt 99.8 kg (220 lb) SpO2 96% BMI 31.57 kg/m?? CV: RRR Resp: CTAB Abd: Soft NTND Pulses: Femoral Lt 2+ palpable, Rt 1+ palpable. Doppler signals left DP and PT Cr Lab Results Component Value Date CREATININE 0.53 (L) 07/20/2024 CREATININE 0.52 (L) 06/02/2024 INR Lab Results Component Value Date PT 10.6 05/28/2024 PTT 05/28/2024 INR 0.9 05/28/2024 Assessment: Geovanna Dixon Jr. is a 49 y.o. male with CLTI who presents to IR for LLE angiogram withpossible intervention. We have discussed the risks and benefits, patient would like to proceed. Plan for a right femoral arterial puncture for LLE angiogram with possible intervention Mal I ASA II Rubio Grimaldo MD Vascular Surgery [facility] Vascular Surgery Floor Pager: [phone] Vascular Surgery Consult Pager: [phone] * Cynthia Solorzano RN - 07/19/2024 11:42 AM EDT Handoff from DAVID Howard. Patient alert, VSS. [id number] Report called to DAVID Alonso. * Oli Call PT - 07/19/2024 10:33 AM EDT Physical Therapy Note Pt in the OR this morning, please update activity orders as appropriate post today's procedures. PT will follow up as appropriate. Thanks. Oli Call, ELDON Beeper# [id number] * María Carranza APRN - 07/19/2024 9:54 AM EDT Vascular Surgery Progress Note Geovanna Dixon Jr. is a 49 y.o. male with history of CAD s/p CABG, DM, obesity, NSTEMI, HTN, HLD, depression, tobacco use, and substance use who presented to the ED with concern for left foot pain andcolor changes. Vascular Surgery was consulted due to concern for left foot gangrene with infection.Of note, patient has been previously admitted to the [facility] Vascular Surgery service on 05/28 - 06/02 of this year for short segment left popliteal occlusion. He was treated with a heparin drip with improvement, was also treated for cellulitis of his LLE. Per discharge summary on 06/02, he was discharged on Xarelto 2.5 mg BID, aspirin, and a course of Augmentin with plan to follow up in one month, he did not present to this appointment. Presents for this hospitalization for color changes to his leftfoot and toes as well as pain, unsure of whether he's been taking Xarelto. Continues to have difficulty with insulin regimen, blood glucose is not controlled. Smokes 1/2 PPD. Active Hospital Problems Diagnosis Peripheral artery disease Resolved Hospital Problems No resolved problems to display. Active Non-Hospital Problems Diagnosis 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 (SVG to PDA closed 08/2013) Critical limb ischemia of left lower extremity Diabetes mellitus Obesity NSTEMI (non-ST elevated myocardial infarction) HTN (hypertension) Hyperlipidemia Depression Narcolepsy Scheduled Medications: [Transfer Hold] insulin lispro 1-11 Units Subcutaneous Q4H JOSE [Transfer Hold] insulin lispro 0-20 Units Subcutaneous TID WC [Transfer Hold] insulin glargine (Lantus;Semglee) (100 unit/mL) subcutaneous injection 50 Units Subcutaneous Nightly [Transfer Hold] protriptyline 10 mg Oral TID [Transfer Hold] piperacillin-tazobactam 3.375 g Intravenous Q8H [Transfer Hold] senna-docusate 2 tablet Oral BID [Transfer Hold] aspirin EC 81 mg Oral Daily [Transfer Hold] atorvastatin 80 mg Oral QPM [Transfer Hold] losartan 50 mg Oral Daily [Transfer Hold] metoprolol succinate XL 25 mg Oral Daily [Transfer Hold] pantoprazole EC 40 mg Oral Daily [Transfer Hold] venlafaxine 225 mg Oral Daily [Transfer Hold] sodium chloride 0.9 % (flush) 5 mL Intravenous BID Operations This Hospitalization: - None 24-Hour Interval Events / Subjective: - NAEO, HDS, +440 since adm, BM 07/17, self void - Hgb 13.6 (13.4), WBC 12.4 (11.5), electrolytes WNL - MRSA - Objective: Temp: [36.5 ??C (97.7 ??F)-36.8 ??C (98.2 ??F)] Heart Rate: [86-93] Resp: [14-18] BP: (140-149)/(86-96) SpO2: [96 %-98 %] Heart Rate from SpO2: [84 bpm-92 bpm] BMI: Weight: 99.8 kg (220 lb) (07/14/24 2226) BMI (Calculated): 31.56 BMI Classification: Obese Intake/Output Summary (Last 24 hours) at 07/19/2024 0954 Last data filed at 07/19/2024 0427 Gross per 24 hour Intake 1593.6 ml Output 5225 ml Net -3631.4 ml PHYSICAL EXAM: GEN: resting comfortably, NAD CHEST: comfortable work of breathing on RA CV: regular rate ABD: soft, nondistended EXTR: Left extremity with noted dry gangrene to the distal 1st, 2nd and 5th digits. No visualized drainage, no palpable fluctuance. 2nd toe with relatively more erythema than other toes. Noted erythema to the left foot with extension proximally up the left ankle with streaking characteristic of lymphangitis. Patient is able to demonstrate movement of his toes and feet. Sensation intact distally. PT and DP signals identified on Doppler. NEURO: awake and alert, grossly intact, nonfocal, follows commands Labs: Recent Labs 07/19/24 03407/18/24 03307/17/24341 WBC 12.45* 11.56* 11.02* HGB 13.6* 13.4* 13.1* HCT 41.0 40.2* 38.8* PLATELET 421* 392* 367* Recent Labs 07/19/24 03407/18/24 0333 07/17/24 03407/16/24 1539 NA 138 136 135 -- K 3.9 4.3 3.7 3.9 CL 103 101 103 -- CO2 23 23 21* -- BUN 7* 8* 9* -- CREATININE 0.56* 0.53* 0.49* -- PHOS 4.3 3.7 3.6 -- CALCIUM 9.6 9.2 9.1 -- Microbiology: Microbiology Results (last 7 days) Procedure Component Value - Date/Time MRSA PCR Screen [[id number]] (Normal) Collected: 07/16/24 1407 Lab Status: Final result Specimen: Swab from Nares Updated: 07/17/241803 MRSA PCR Not Detected Narrative: This test was performed using the Xpert MRSA NxG test kit and is run on the [employer] Dx System. This test is cleared by the U.S. Food and Drug Administration for clinical use and its performance characteristics have been verified by the Clinical [employer] and [employer] [facility] at [facility]. This test was performed using the Xpert MRSA NxG test kit and is run on the [employer] Dx System. This test is cleared by the U.S. Food and Drug Administration for clinical use and its performance characteristics have been verified by the [employer] and [employer] [facility] at [facility]. New Studies: ABIs 07/17/24: Findings: Right Pressure (mm Hg) ELEN Waveform TBI Brachial Artery 152 Dorsalis Pedis (Ankle) Artery 167 1.10 Triphasic Posterior Tibial (Ankle) Artery 168 1.11 Triphasic Great Toe 141 0.93 Left Pressure (mm Hg) ELEN Waveform TBI Brachial Artery 149 Dorsalis Pedis (Ankle) Artery 83 0.55 [place]-Biphasic Posterior Tibial (Ankle) Artery 87 0.57 Monophasic Great Toe 58 0.38 Interpretation: RIGHT: No significant lower extremity arterial occlusive disease. Normal ankle/brachial pressure ratios, ankle Doppler waveforms and toe pressures. No significant change compared to previous exam on 05/29/24. LEFT: Moderate lower extremity arterial occlusive disease to the ankle and moderately severe disease in the foot. No significant change compared to previous exam on 05/29/24. XR Foot (3-Views) (07/14) - FINDINGS: Soft tissue ulcerations at the distal aspects of the first, second, and fifth toes consistent with given history. No osseous erosive or destructive change. No periostitis. No tracking soft tissue gas. Joint spaces are maintained. Rounded metallic foreign body/BB measuring 4 mm projects in the soft tissues between the distal first and second metatarsals. IMPRESSION 1. Soft tissue ulcers at the distal first, second, and fifth toes. 2. No radiographic evidence of advanced acute osteomyelitis. Of note, the fifth toe ulcer appears deep and may potentially be exposing the tip of the distal phalanx. Correlate with exam. 3. 4 mm metallic foreign body/BB in the soft tissues between the first and second metatarsals. Thank you for letting us participate in the care of this patient. If you are a health care provider and have any questions regarding this report, please contact the number below. For patients who have questions please contact the health hospice spiritual care coordinator that requested your imaging first. Angiogram Aortic Lower Extremity Runoff (07/14) - FINDINGS: VASCULAR FINDINGS Abdominal aorta: No stenosis [...] 2.6 cm vessel length at and just [id number], similar to prior. Anterior tibial artery: No [...] possible abscess in the appropriate clinical setting. IMPRESSION 1. No significant aortoiliac inflow stenosis. 2. Severe short segment origin stenosis left SFA and moderate multifocal left SFA stenosis. 3. Severe origin stenosis proximal left popliteal artery and unchanged left popliteal artery occlusion extending over a 2.6 cm vessel length at and just above the knee. 4. Patent three-vessel runoff [...] who have questions please contact the health hospice spiritual care coordinator that requested your imaging first. Assessment & Plan: Geovanna Dixon Jr. is a 49 y.o. 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 Physical exam findings also concerning for a cellulitis/lymphangitis. Admitted for IV antibiotics, blood sugar control, further workup and operative planning. Vascular studies including ABIs, CTAs confirm moderate-severe mulitlevel arterial disease/stenosis.Will go to OR today for toe amputations, then to angiography LLE. Appreciate cardiology recs, will continue ASA, statin, betablocker, ARB. Hold SGLT2i while hospitalized. PLAN BY SYSTEM N: protriptyline, venlafaxine, prn tylenol CV: losartan, metoprolol, atorvastatin, cardiology consulted, appreciate recs Pulm: IS GI: protonix, bowel reg, prn compazine, prn zofran /FE: ID: [email or web address] Heme: hep gtt, aspirin, SCDs Diet: NPO for OR, resume CCD level 2 when returns from OR/IR Endo: SS insulin DISPO: Floor, will need inpatient services for at least 24hours Code status: Full María Carranza APRN 07/19/2024 Pager: [phone] * Oli Call, PT - 07/18/2024 12:53 PM EDT Physical Therapy Note 2 Patient profile: Geovanna Dixon Jr. is a 49 y.o. right handed male admitted on 07/14/2024. Pt presented in transfer from OSH with left foot infection for vascular surgery assessment. He presented to OSHwith left foot wounds/cellulitis and concern for limb ischemia. Per MD notes: He is s/p recent admit 05/28 - 06/02 of this year for short segment left popliteal occlusion. He was treated with a heparindrip with improvement, was also treated for cellulitis of his LLE. Per discharge summary on 06/02, he was discharged on Xarelto 2.5 mg BID, aspirin, and a course of Augmentin with plan to follow up inone month, he did not present to this appointment. Prior Medical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 TDD Lispro Correction: Moderate 1:20 correction for BG >140 Q4hrs INCREASE Lispro Meal-associated: 1 units: 5g of carbohydrates starting at lunch. ADD Lispro Snack-associated: 1:5g Diet: Carb Controlled 60/60/75g Monitoring: BG Q4 Discharge Planning/joint terminal attack controller diabetes care: Medications - Outpatient treatment regimen recommendations pending based on the hospital course. Home: Metformin 1000mg BID Ran out of Lantus, Humalog, Jardiance, Trulicity months ago, unclear reason, possibly no PCP/prescriber. Monitoring - BG tid ac & hs Follow-up: No PCP currently - Needs referral to Outpatient Endocrinology per Supplies: Needs meter/strips/lancets on discharge. 50 minutes were spent over the course of the day with this patient encounter including time spent in chart review and relevant lab result review, assessment of and counseling with the patient on diabetes and treatment plan, reviewing all glucose and insulin data, and coordination with the consulting service. Lakeisha Berry APRN, DENISSE, -[facility] Inpatient Diabetes Management Team Team pager #[phone] * Hermila White APRN - 07/17/2024 7:45 AM EDT Images from the original note were not included. Vascular Surgery Progress Note Geovanna Dixon Jr. is a 49 y.o. male with history of CAD s/p CABG, DM, obesity, NSTEMI, HTN, HLD, depression, tobacco use, and substance use who presented to the ED with concern for left foot pain andcolor changes. Vascular Surgery was consulted due to concern for left foot gangrene with infection.Of note, patient has been previously admitted to the [facility] Vascular Surgery service on 05/28 - 06/02 of this year for short segment left popliteal occlusion. He was treated with a heparin drip with improvement, was also treated for cellulitis of his LLE. Per discharge summary on 06/02, he was discharged on Xarelto 2.5 mg BID, aspirin, and a course of Augmentin with plan to follow up in one month, he did not present to this appointment. Patient reports that over the past few days he has noticed the color of his left foot and toes has begun to change, which prompted him to present to the hospital. Reports some pain in his left foot but that this is not much different from what he usually has. Denies fever, chills. Denies changes insensation of his left foot. When asked about whether he has been taking his Xarelto, patient is unsure, says he is unfamiliar with his home medication names. Does report he finished antibiotic course following discharge. Patient reports that he has had difficult to control blood sugars in the past, insulin dependent. Reports he smokes 1/2 pack of cigarettes a day. Reports cocaine use a few weeks ago. Denies alcohol use. Active Hospital Problems Diagnosis Peripheral artery disease Resolved Hospital Problems No resolved problems to display. Active Non-Hospital Problems Diagnosis 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 (SVG to PDA closed 08/2013) Critical limb ischemia of left lower extremity Diabetes mellitus Obesity NSTEMI (non-ST elevated myocardial infarction) HTN (hypertension) Hyperlipidemia Depression Narcolepsy Scheduled Medications: magnesium sulfate 2 g Intravenous Once insulin lispro 0-8 Units Subcutaneous TID WC insulin lispro 1-6 Units Subcutaneous Q4H [facility] insulin glargine (Lantus;Semglee) (100 unit/mL) subcutaneous injection 45 Units Subcutaneous Nightly piperacillin-tazobactam 3.375 g Intravenous Q8H senna-docusate 2 tablet Oral BID aspirin EC 81 mg Oral Daily atorvastatin 80 mg Oral QPM losartan 50 mg Oral Daily metoprolol succinate XL 25 mg Oral Daily pantoprazole EC 40 mg Oral Daily protriptyline 10 mg Oral Q8H venlafaxine 225 mg Oral Daily sodium chloride 0.9 % (flush) 5 mL Intravenous BID vancomycin 1.25 g Intravenous Q8H Operations This Hospitalization: - None 24-Hour Interval Events / Subjective: - NAEO. - Pain well-controlled, denies nausea, vomiting, chest pain, or shortness of breath. - Blood glucose remains elevated. Diabetes Mgmt team is following. - Leukocytosis downtrending 11.08 --> 11.02 - Mg + K repleted this AM for goal Mg > .80, K > 4 - MRSA screen in process - Last Bowel Movement: 07/15/24 Objective: Temp: [36.4 ??C (97.5 ??F)-37.1 ??C (98.8 ??F)] Heart Rate: -- Resp: [12-16] BP: (136-148)/(88-94) SpO2: [96 %-98 %] Heart Rate from SpO2: [84 bpm-92 bpm] BMI: Weight: 99.8 kg (220 lb) (07/14/24 2226) BMI (Calculated): 31.56 BMI Classification: Obese Intake/Output Summary (Last 24 hours) at 07/17/2024 0745 Last data filed at 07/17/2024 0624 Gross per 24 hour Intake 3080 ml Output 2050 ml Net 1030 ml PHYSICAL EXAM: GEN: resting comfortably in bed, pleasant, conversant, NAD HEENT: normocephalic, atraumatic CHEST: comfortable work of breathing on RA CV: regular rate ABD: soft, nondistended EXTR: Left extremity with noted dry gangrene to the distal 1st, 2nd and 5th digits. No visualized drainage, no palpable fluctuance. Noted erythema to the left foot with extension proximally up the left ankle with streaking characteristic of lymphangitis. Patient is able to demonstrate movement of his toes and feet. Sensation intact distally. PT and DP signals identified on Doppler. NEURO: awake and alert, grossly intact, nonfocal, follows commands Labs: Recent Labs 07/17/24 0342 07/16/24 0207 07/15/24 0045 07/14/241938 WBC 11.02* 11.08* 11.70* 8.69 HGB 13.1* 12.7* 12.1* 11.7* HCT 38.8* 36.6* 35.7* 34.5* PLATELET 367* 363* 322 313 Recent Labs 07/17/24 0342 07/16/24 1539 07/16/24 0415 07/16/24 0207 07/15/24 0045 07/14/241938 NA 135 -- -- 135 132* 137 K 3.7 3.9 3.2* -- 3.7 3.7 CL 103 -- -- 101 99 101 CO2 21* -- -- 22 20* 23 BUN 9* -- -- 8* 8* 6* CREATININE 0.49* -- -- 0.42* 0.80 0.53* PHOS 3.6 -- 3.7 -- -- -- CALCIUM 9.1 -- -- 9.0 8.5 8.6 Microbiology: - MRSA PCR pending New Studies: XR Foot (3-Views) (07/14) - FINDINGS: Soft tissue ulcerations at the distal aspects of the first, second, and fifth toes consistent with given history. No osseous erosive or destructive change. No periostitis. No tracking soft tissue gas. Joint spaces are maintained. Rounded metallic foreign body/BB measuring 4 mm projects in the soft tissues between the distal first and second metatarsals. IMPRESSION 1. Soft tissue ulcers at the distal first, second, and fifth toes. 2. No radiographic evidence of advanced acute osteomyelitis. Of note, the fifth toe ulcer appears deep and may potentially be exposing the tip of the distal phalanx. Correlate with exam. 3. 4 mm metallic foreign body/BB in the soft tissues between the first and second metatarsals. Thank you for letting us participate in the care of this patient. If you are a health care provider and have any questions regarding this report, please contact the number below. For patients who have questions please contact the health hospice spiritual care coordinator that requested your imaging first. Angiogram Aortic Lower Extremity Runoff (07/14) - FINDINGS: VASCULAR FINDINGS Abdominal aorta: No stenosis [...] 2.6 cm vessel length at and just [id number], similar to prior. Anterior tibial artery: No [...] possible abscess in the appropriate clinical setting. IMPRESSION 1. No significant aortoiliac inflow stenosis. 2. Severe short segment origin stenosis left SFA and moderate multifocal left SFA stenosis. 3. Severe origin stenosis proximal left popliteal artery and unchanged left popliteal artery occlusion extending over a 2.6 cm vessel length at and just above the knee. 4. Patent three-vessel runoff [...] who have questions please contact the health hospice spiritual care coordinator that requested your imaging first. Assessment & Plan: Geovanna Dixon Jr. is a 49 y.o. 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 Physical exam findings also concerning for a cellulitis/lymphangitis. WBC 8.6. Plan to admit to Vascular Surgery for IV antibiotics, blood sugar control, further workup and operative planning. 07/17/24 - HDS. Vascular exam stable. Plan for ABIs today. Heparin gtt to be maintained during thisadmission in addition to aspirin and high-intensity statin therapy for medical management of LLE arterial occlusive disease. Zosyn + Vanc prescribed for infectious concerns while awaiting MRSA PCR. Fluid restriction and strict I/Os initiated 07/15 amid Na 132 --> Na 135 today: will discontinue the former today, recheck BMP for tomorrow. Recommendations: - Floor status - Obtained CTA, foot and toe plain films (07/14) - Obtain ABIs today - Cardiology consult for pre-op risk stratification (07/17) - Aspirin, high-intensity atorvastatin - Abx: Zosyn + Vancomycin - MRSA PCR screen pending - Diet: Carb control level 2 - DVT: Therapeutic Heparin gtt, hold Xarelto for now (patient unsure whether he was taking this FROG SHAKER) - Glargine 50 units nightly; meal associated lispro ICR 1:6g; moderate correction scale q4hrs - Diabetes management team consult, appreciate recommendations - Home meds: Losartan, metoprolol, protriptyline, PPI, venlafaxine - Full code Hermila White APRN 07/17/2024 Pager: [phone] * Dai Carter, DAVID - 07/17/2024 2:43 AM EDT Assumed care of Geovanna at 0100. Geovanna is resting comfortably. No needs expressed at this time. All four side rail are up per patients request. Urinal is at bedside. * Hermila White APRN - 07/16/2024 10:51 AM EDT Images from the original note were not included. Vascular Surgery Progress Note Geovanna Dixon Jr. is a 49 y.o. male with history of CAD s/p CABG, DM, obesity, NSTEMI, HTN, HLD, depression, tobacco use, and substance use who presented to the ED with concern for left foot pain andcolor changes. Vascular Surgery was consulted due to concern for left foot gangrene with infection.Of note, patient has been previously admitted to the [facility] Vascular Surgery service on 05/28 - 06/02 of this year for short segment left popliteal occlusion. He was treated with a heparin drip with improvement, was also treated for cellulitis of his LLE. Per discharge summary on 06/02, he was discharged on Xarelto 2.5 mg BID, aspirin, and a course of Augmentin with plan to follow up in one month, he did not present to this appointment. Patient reports that over the past few days he has noticed the color of his left foot and toes has begun to change, which prompted him to present to the hospital. Reports some pain in his left foot but that this is not much different from what he usually has. Denies fever, chills. Denies changes insensation of his left foot. When asked about whether he has been taking his Xarelto, patient is unsure, says he is unfamiliar with his home medication names. Does report he finished antibiotic course following discharge. Patient reports that he has had difficult to control blood sugars in the past, insulin dependent. Reports he smokes 1/2 pack of cigarettes a day. Reports cocaine use a few weeks ago. Denies alcohol use. Active Hospital Problems Diagnosis Peripheral artery disease Resolved Hospital Problems No resolved problems to display. Active Non-Hospital Problems Diagnosis 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 (SVG to PDA closed 08/2013) Critical limb ischemia of left lower extremity Diabetes mellitus Obesity NSTEMI (non-ST elevated myocardial infarction) HTN (hypertension) Hyperlipidemia Depression Narcolepsy Scheduled Medications: insulin lispro 0-8 Units Subcutaneous TID WC insulin glargine (Lantus;Semglee) (100 unit/mL) subcutaneous injection 28 Units Subcutaneous Nightly insulin lispro 1-6 Units Subcutaneous Q4H JOSE senna-docusate 2 tablet Oral BID aspirin EC 81 mg Oral Daily atorvastatin 80 mg Oral QPM losartan 50 mg Oral Daily metoprolol succinate XL 25 mg Oral Daily pantoprazole EC 40 mg Oral Daily protriptyline 10 mg Oral Q8H venlafaxine 225 mg Oral Daily sodium chloride 0.9 % (flush) 5 mL Intravenous BID vancomycin 1.25 g Intravenous Q8H Operations This Hospitalization: - None 24-Hour Interval Events / Subjective: - NAEO. - K 3.2 this AM. - Blood sugars elevated overnight. Diabetes Mgmt team following. - Pain well-controlled, denies nausea, vomiting, chest pain, or shortness of breath. - Last Bowel Movement: 07/15/24 Objective: Temp: [36.8 ??C (98.2 ??F)-37 ??C (98.6 ??F)] Heart Rate: -- Resp: [16-18] BP: (123-149)/(82-124) SpO2: [94 %-99 %] Heart Rate from SpO2: [85 bpm-94 bpm] BMI: Weight: 99.8 kg (220 lb) (07/14/24 2226) BMI (Calculated): 31.56 BMI Classification: Obese Intake/Output Summary (Last 24 hours) at 07/16/2024 1051 Last data filed at 07/16/2024 1012 Gross per 24 hour Intake 1786.47 ml Output 0 ml Net 1786.47 ml PHYSICAL EXAM: GEN: resting comfortably in bed, pleasant, conversant, NAD HEENT: normocephalic, atraumatic CHEST: comfortable work of breathing on RA CV: regular rate ABD: soft, nondistended EXTR: Left extremity with noted dry gangrene to the distal 1st, 2nd and 5th digits. No visualized drainage, no palpable fluctuance. Noted erythema to the left foot with extension proximally up the left ankle with streaking characteristic of lymphangitis. Patient is able to demonstrate movement of his toes and feet. Sensation intact distally. PT and DP signals identified on Doppler. NEURO: awake and alert, grossly intact, nonfocal, follows commands Labs: Recent Labs 07/16/2420607/15/244407/14/241938 WBC 11.08* 11.70* 8.69 HGB 12.7* 12.1* 11.7* HCT 36.6* 35.7* 34.5* PLATELET 363* 322 313 Recent Labs 07/16/245 07/16/2420607/15/244407/14/241938 NA -- 135 132* 137 K 3.2* -- 3.7 3.7 CL -- 101 99 101 CO2 -- 22 20* 23 BUN -- 8* 8* 6* CREATININE -- 0.42* 0.80 0.53* PHOS 3.7 -- -- -- CALCIUM -- 9.0 8.5 8.6 Microbiology: - None New Studies: XR Foot (3-Views) (07/14) - FINDINGS: Soft tissue ulcerations at the distal aspects of the first, second, and fifth toes consistent with given history. No osseous erosive or destructive change. No periostitis. No tracking soft tissue gas. Joint spaces are maintained. Rounded metallic foreign body/BB measuring 4 mm projects in the soft tissues between the distal first and second metatarsals. IMPRESSION 1. Soft tissue ulcers at the distal first, second, and fifth toes. 2. No radiographic evidence of advanced acute osteomyelitis. Of note, the fifth toe ulcer appears deep and may potentially be exposing the tip of the distal phalanx. Correlate with exam. 3. 4 mm metallic foreign body/BB in the soft tissues between the first and second metatarsals. Thank you for letting us participate in the care of this patient. If you are a health care provider and have any questions regarding this report, please contact the number below. For patients who have questions please contact the health hospice spiritual care coordinator that requested your imaging first. Angiogram Aortic Lower Extremity Runoff (07/14) - FINDINGS: VASCULAR FINDINGS Abdominal aorta: No stenosis [...] 2.6 cm vessel length at and just [id number], similar to prior. Anterior tibial artery: No [...] possible abscess in the appropriate clinical setting. IMPRESSION 1. No significant aortoiliac inflow stenosis. 2. Severe short segment origin stenosis left SFA and moderate multifocal left SFA stenosis. 3. Severe origin stenosis proximal left popliteal artery and unchanged left popliteal artery occlusion extending over a 2.6 cm vessel length at and just above the knee. 4. Patent three-vessel runoff [...] who have questions please contact the health hospice spiritual care coordinator that requested your imaging first. Assessment & Plan: Geovanna Dixon Jr. is a 49 y.o. 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 Physical exam findings also concerning for a cellulitis/lymphangitis. WBC 8.6. Plan to admit to Vascular Surgery for IV antibiotics, blood sugar control, further workup and operative planning. 07/16/24 - HDS. Vascular exam stable. Plan for ABIs tomorrow. Heparin gtt to be maintained during this admission in addition to aspirin and high-intensity statin therapy for medical management of LLEarterial occlusive disease. Zosyn given x 1. Vanc prescribed for infectious concerns. Labwork significant for hypokalemia, will replete. Fluid restriction initiated yesterday amid Na 132 --> Na 135 today. Recommendations: - Floor status - Obtained CTA, foot and toe plain films (07/14) - Obtain ABIs on Wednesday, 07/17 - Aspirin, high-intensity atorvastatin - Abx: Zosyn x 1, Vancomycin - MRSA PCR screen ordered - Diet: Carb control level 2 - DVT: Therapeutic Heparin gtt, hold Xarelto for now (patient unsure whether he was taking this FROG SHAKER) - Glargine 45 units nightly; meal associated lispro ICR 1:6g; moderate correction scale q4hrs - Diabetes management team consult, appreciate recommendations - Home meds: Losartan, metoprolol, protriptyline, PPI, venlafaxine - Full code Hermila White APRN 07/16/2024 Pager: [phone] * Dayanara Grover MD - 07/16/2024 8:52 AM EDT Follow Up Diabetes Consult ID:Geovanna Dixon Jr. is a 49 y.o. male with PMH significant for T2DM, CAD s/p CABG, HTN, HLD, obesity, substance use disorder, recent admission in May for popliteal occlusion who was admitted on 07/14/2024 currently being treated for left toe gangrene and cellulitis. We are being consulted to assistwith diabetes management and to provide a review of [facility] diabetes care. Objective Temp: [36.8 ??C (98.2 ??F)-37 ??C (98.6 ??F)] Heart Rate: -- Resp: [16-18] BP: (123-173)/(82-124) SpO2: [94 %-99 %] Heart Rate from SpO2: [80 bpm-94 bpm] Recent Glucose Levels Recent Labs 07/16/24 0710 07/16/24 0414 07/16/24 0207 07/16/24 0004 07/15/24 2036 07/15/24 1641 07/15/24 1316 07/15/24 0834 07/15/24 0444 07/15/24 0248 07/15/24 0029 POCGLU 205* 187 254* 324* 274* 275* 223* 133 224* 281* 394* Assessment: Patient is a 49 y.o. male with PMH significant for Type 2 DM (Last A1C of 12.6) who was admitted on07/14/2024 for left toe gangrene and cellulitis. Diabetes suboptimally controlled and currently complicated by foot wounds. Currently with variability of blood glucose levels while hospitalized requiring adjustment of insulin regimen and DM medications. OUSMANE and IA2 Ab checked last admission were negative confirming T2DM. He is only taking metformin athome. He denies any financial constraints limiting his ability to obtain the other medications he is prescribed for diabetes. He does not currently have a primary care provider. Recommend BG management with insulin while admitted with recommendations noted below. Upon discharge, he will need outpatient follow up at [facility] endocrine clinic. He lives in [place], but notes he has a truck and can drive to our clinic for follow up. He will also need BG testing supplies to use at home. We discussed with the patient at the bedside regarding the importance of better blood glucose control to help with wound healing and try to prevent amputations. Plan: -Increase Glargine to 45 units nightly -Change ICR to 1:6g -Moderate correction scale q4hrs Thank you for allowing us to provide care for your patient Case discussed with Dr. Reno and communicated with the primary team (vascular surgery). Dayanara Grover PGY-5 [facility] Endocrinology Associated attestation - Karen Reno MD - 07/16/2024 11:17 AM EDT Patient evaluated by me and Dr. Grover. I agree with her assessment and plan. Glucose still high but better. He needs a significant diabetes education as I did not know diabetes can cause blindness after having DM for decades. Will increase Glargine. Other as per fellow. Karen Reno MD Professor * Jay Ignacio RN - 07/16/2024 12:18 AM EDT Chat sent regarding elevated blood sugars * Hermila White, RESHMA - 07/15/2024 2:16 PM EDT Images from the original note were not included. Vascular Surgery Progress Note Geovanna Dixon Jr. is a 49 y.o. male with history of CAD s/p CABG, DM, obesity, NSTEMI, HTN, HLD, depression, tobacco use, and substance use who presented to the ED with concern for left foot pain andcolor changes. Vascular Surgery was consulted due to concern for left foot gangrene with infection.Of note, patient has been previously admitted to the [facility] Vascular Surgery service on 05/28 - 06/02 of this year for short segment left popliteal occlusion. He was treated with a heparin drip with improvement, was also treated for cellulitis of his LLE. Per discharge summary on 06/02, he was discharged on Xarelto 2.5 mg BID, aspirin, and a course of Augmentin with plan to follow up in one month, he did not present to this appointment. Patient reports that over the past few days he has noticed the color of his left foot and toes has begun to change, which prompted him to present to the hospital. Reports some pain in his left foot but that this is not much different from what he usually has. Denies fever, chills. Denies changes insensation of his left foot. When asked about whether he has been taking his Xarelto, patient is unsure, says he is unfamiliar with his home medication names. Does report he finished antibiotic course following discharge. Patient reports that he has had difficult to control blood sugars in the past, insulin dependent. Reports he smokes 1/2 pack of cigarettes a day. Reports cocaine use a few weeks ago. Denies alcohol use. Active Hospital Problems Diagnosis Peripheral artery disease Resolved Hospital Problems No resolved problems to display. Active Non-Hospital Problems Diagnosis 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 (SVG to PDA closed 08/2013) Critical limb ischemia of left lower extremity Diabetes mellitus Obesity NSTEMI (non-ST elevated myocardial infarction) HTN (hypertension) Hyperlipidemia Depression Narcolepsy Scheduled Medications: aspirin EC 81 mg Oral Daily atorvastatin 80 mg Oral QPM losartan 50 mg Oral Daily metoprolol succinate XL 25 mg Oral Daily pantoprazole EC 40 mg Oral Daily protriptyline 10 mg Oral Q8H venlafaxine 225 mg Oral Daily sodium chloride 0.9 % (flush) 5 mL Intravenous BID insulin lispro 2-12 Units Subcutaneous Q4H JOSE heparin (porcine) 5,000 Units Subcutaneous Q8H JOSE insulin glargine (Lantus;Semglee) (100 unit/mL) subcutaneous injection 35 Units Subcutaneous Nightly vancomycin 1.25 g Intravenous Q8H Operations This Hospitalization: - None 24-Hour Interval Events / Subjective: - NAEO. - BP elevated this AM. Nursing notes that patient just got his home Losartan. - Pain well-controlled, denies nausea, vomiting, chest pain or shortness of breath. - Last BM FROG SHAKER Objective: Temp: [36.4 ??C (97.5 ??F)-36.7 ??C (98.1 ??F)] Heart Rate: [96-100] Resp: [16-18] BP: (114-173)/(88-106) SpO2: [94 %-97 %] Heart Rate from SpO2: [80 bpm-100 bpm] BMI: Weight: 99.8 kg (220 lb) (07/14/24 2226) BMI (Calculated): 31.56 BMI Classification: Obese No intake or output data in the 24 hours ending 07/15/24 1416 PHYSICAL EXAM: GEN: resting comfortably in bed, pleasant, conversant, moderately dysarthric, NAD HEENT: normocephalic, atraumatic CHEST: comfortable work of breathing on RA CV: regular rate ABD: soft, nondistended EXTR: Left extremity with noted dry gangrene to the distal 1st, 2nd and 5th digits. No visualized drainage, no palpable fluctuance. Noted erythema to the left foot with extension proximally up the left ankle with streaking characteristic of lymphangitis. Patient is able to demonstrate movement of his toes and feet. Sensation intact distally. PT and DP signals identified on Doppler. NEURO: awake and alert, grossly intact, nonfocal, follows commands Labs: Recent Labs 07/15/244407/14/241938 WBC 11.70* 8.69 HGB 12.1* 11.7* HCT 35.7* 34.5* PLATELET 322 313 Recent Labs 07/15/244407/14/241938 NA 132* 137 K 3.7 3.7 CL 99 101 CO2 20* 23 BUN 8* 6* CREATININE 0.80 0.53* CALCIUM 8.5 8.6 Microbiology: - None New Studies: XR Foot (3-Views) (07/14) - FINDINGS: Soft tissue ulcerations at the distal aspects of the first, second, and fifth toes consistent with given history. No osseous erosive or destructive change. No periostitis. No tracking soft tissue gas. Joint spaces are maintained. Rounded metallic foreign body/BB measuring 4 mm projects in the soft tissues between the distal first and second metatarsals.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 features or transfer to recliner chair as appropriate withSBA Sit upright for all meals/meal times OOB to chair for all meals Ambulate as tolerated with SBA Encourage participation in ADL's by providing set up assist on tray table and physical assist only as needed Plan: OT: Therapy Frequency (OT): evaluation only Total Minutes, Occupational Therapy: 23 (evaluation ([id number])) OT Evaluation Code Rationale: Diagnosis & Pertinent Co-Morbidities affecting Plan of Care: see PMHx Occupational Profile & Client History: Brief Expanded Extensive X Assessment of Occupational Performance: 1-3 performance deficits X 3-5 performance deficits 5 + performance deficits Clinical Decision Making: Low Moderate High X Clinical decision making of low complexity using standardized patient assessment instrument and measurable assessment of functional outcome. Pager: [phone] Camille Holloway OT 07/17/2024 Occupational Therapy Rehabilitation Department * Initial Assessments - Reji Casas MSW - 07/17/2024 2:04 PM EDT Office of Care Management Initial Assessment DENISSE Haro reviewed record and discussed patient with Care Team. Source of Information: Team, bedside nurse, medical record, and Patient, Chart Review Introduced self/reviewed role; services accepted. Admitted From: Transfer from another hospital Reason for Hospitalization: Make my foot better Past medical History: Past Medical History: Diagnosis Date Depression Hyperlipidemia Hypertension Narcolepsy Obesity Hospitalizations Within the Past 30 Days: no previous admission in last 30 days Current Decision-Making Capacity: Self If AD's have not been completed the following surrogate would be surrogate decision maker per [place] decision making law. (Only good for 180 days) Any patient receiving care in [place] must abide by [place] law. The hierarchy for surrogate decision making [...] (i) The agent with financial power of title attorney or a conservator appointed in accordance with RSA 464-A. (j) The guardian of the patient???s estate. Advance Care Planning: Attempt Cardiopulmonary Resuscitation - Inpatient <no information> -Advanced Directive: No, need to discuss Current Coping/Education/Information Needs: Current Functional Ability: Assistive Equipment Functional Status Prior to Admission: Independent Prior ADLs & IADLs: Independent with all ADLs & IADLs Home Environment: Others in the home: sibling(s). Current Living Arrangements: home/apartment/condo. Accessibility Concerns: . In the last 12 months, was there a time when you were not able to pay the mortgage or rent on time?: No At any time in the past 12 months, were you homeless or living in a residential (including now)?: No In the past 12 months has the [employer], gas, oil, or water Electric Objects threatened to shut off services in your home?: No Within the past 12 months, you worried that your food would run out before you got the money to buymore.: Never true Within the past 12 months, the food you bought just didn't last and you didn't have money to get more.: Never true Resource / Environmental Concerns: Resource/Environmental Concerns: none Home Accessibility Concerns: stairs to enter home In the past 12 months, has lack of transportation kept you from medical appointments or from getting medications?: No In the past 12 months, has lack of transportation kept you from meetings, work, or from getting things needed for daily living?: No Current DME: none Home Address confirmed as: [address] [place] [address] Social & Family Supports: All names listed below confirmed with patient as current and correct Extended Emergency Contact Information Primary Emergency Contact: Rene Dixon Relation: Spouse Secondary Emergency Contact: Cony Barrientos Relation: Child Current Care Provided by: self Provides Primary Care For: no one Caregiver if needed: sibling(s) Quality of Family relationships: supportive Community Resources being provided currently: none Behavioral Health History: Substance Use/Abuse confirmed: Social History Tobacco Use Smoking Status Every Day Current packs/day: 0.00 Average packs/day: 1 pack/day for 25.0 years (25.0 ttl pk-yrs) Types: Cigarettes Start date: 12/28/1986 Last attempt to quit: 12/28/2011 Years since quittin.5 Smokeless Tobacco Not on file In the past year have you used an illegal drug or used a prescription medication for non-medical reasons?: Yes DAST Score: 3 0 No problems reported 1-2 Low level 3-5 Moderate level 6-8 Substantial level 9- 10 Severe level In the past year have you had 5 or more drinks a day containing alcohol?: No 0 to 7 points: Low risk 8 to 15 points: Medium risk 16 to 19 points: High risk 20 to 40 points: Addiction likely Other Pertinent/Service Specific Information: 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 Hx of cocaine use Health/Prescription Coverage: Primary nsurance: [employer]ARE Payor: [employer]ARE / Plan: [employer] MEDICARE PPO / Product Type: *No Product type* / Secondary Insurance: N/A ONLY if patient has Medicare A&B - Does this patient have secondary insurance?: No ; Why not?: Managed Medicare Prescription Coverage: Yes Preferred Pharmacy: [id number] - [facility] [address] [place] [id number] [id number] - [place], [place] - [address] [place] [id number] [place] Status: Patient is a : No Primary Care Provider confirmed: None None Patient/Caregiver Goals of Treatment: Potential Needs for Transition of Care: none Agency Referrals: Not Applicable Transportation: no concerns Transportation Anticipated: family or friend will provide Concerns to be Addressed: denies needs/concerns at this time Assessment: Patient is admitted to Vascular service for Plan going forward: patient for results of vascular studies. Care Management team will continue to follow and assist with discharge planing and coordination of care as indicated. DENISSE Mccartney * Consult Note - Mara Olson RN - 07/17/2024 12:51 PM EDT Images from the original note were not included. Wound Care Nurse Note Situation: Asked to see Geovanna Dixon Jr. by Jay Ignacio RN for LFT Foot 1,2, and 5 toes, necrotic looking wound Background: eD-H notes reviewed for history, admitting diagnosis and active problem list. Vascular Studies: Reviewed prior to exam, see report in EMR for details. -Date of Last ABIs: 07/17/24 Labs Lab Results Component Value Date ALBUMIN 4.1 12/29/2011 HA1C 12.6 (H) 05/29/2024 HA1C 10.0 (H) 08/21/2013 HA1C 6.1 12/30/2011 WBC 11.02 (H) 07/17/2024 WBC 11.08 (H) 07/16/2024 WBC 11.70 (H) 07/15/2024 WBC 12.8 (H) 06/02/2024 WBC 11.8 (H) 06/01/2024 WBC 12.0 (H) 05/31/2024 HGB 13.1 (L) 07/17/2024 HGB 12.7 (L) 07/16/2024 HGB 12.1 (L) 07/15/2024 HGB 13.7 06/02/2024 HGB 14.1 06/01/2024 HGB 13.6 (L) 05/31/2024 HCT 38.8 (L) 07/17/2024 HCT 36.6 (L) 07/16/2024 HCT 35.7 (L) 07/15/2024 HCT 39.0 (L) 06/02/2024 HCT 39.6 (L) 06/01/2024 HCT 39.1 (L) 05/31/2024 PLATELET 367 (H) 07/17/2024 PLATELET 363 (H) 07/16/2024 PLATELET 322 07/15/2024 PLATELET 283 06/02/2024 PLATELET 264 06/01/2024 PLATELET 246 05/31/2024 INR 0.9 05/28/2024 INR 1.0 08/21/2013 INR 1.0 08/20/2013 PT 10.6 05/28/2024 PT 13.5 08/21/2013 PT 13.7 08/20/2013 Nutritional Status Wt Readings from Last 1 Encounters: 07/14/24 99.8 kg (220 lb) Body mass index is 31.57 kg/m??. Ulises Score: 19 Wound Assessment and Care Provided: Patient seen this morning in room 403-B in bed, reason for visit explained to patient, permission received to assess skin. Anatomical location: Left 1st, 2nd, and 5th toe Dressing removed: Open to air Wound: Black eschar to toes, no drainage Dressing applied: open to air, povidone-iodine Photos taken: Current bed: Assessment: Patient with areas of necrotic tissue to left 1st, 2nd, and 5th toes. These are dry andstable, no open areas, no drainage. Triplett with povidone- iodine daily and leave open to air. This patient is being seen by vascular surgery as well. Wound care will sign off at this time. Wound Care Recommendations: Left 1st, 2nd, and 5th toes: Povidone-iodine daily 1. Cleanse skin with dermal wound cleanser and gauze. 2. Apply Povidone-iodine to wound bed. 3. Leave open to air Wound Care will complete the consult at this time. If there are further issues please re-consult via eD-H. Please contact Mara Olson RN on eDH secure chat or the wound care team on pager [phone] with skin and wound care concerns or questions. * Consult Note - Cynthia Carreon - 07/17/2024 11:00 AM EDT PT sleeping RC will return. * Consult Note - Angel Oliva MD - 07/17/2024 8:52 AM EDT Images from the original note were not included. [facility] Cardiovascular Medicine [place] [phone] CARDIOLOGY CONSULT NOTE Date of Consultation: 07/17/2024 Admit Date: 07/14/2024 Hospital Day 3 days Reason for Consult: preoperative risk stratification Active Problems: Active Hospital Problems Diagnosis Peripheral artery disease Resolved Hospital Problems No resolved problems to display. ID: Geovanna Dixon Jr. is a 49 y.o. male with a past medical history of CAD s/p 2V CABG (12/2011) with known patent MARTINEZ-LAD, occluded SVG-RPDA, and PCI to LCX (2012), HFmrEF / ischemic cardiomyopathy (LVEF 47%), T2DM, HTN, HLD, obesity, tobacco/substance abuse, narcolepsy/cataplexy, who initially presented to [facility] ED with left foot wounds/cellulitis and concern for limb ischemia who was transferred to [facility] for vascular surgery assessment. Recent admit 05/2024 for short segment left popliteal occlusion; he was treated with a heparin drip and antibiotics for cellulitis with improvement. He was discharged on Xarelto 2.5mg BID, aspirin and short course of Augmentin with instructions to be seen in1 month, which he did not show for the scheduled appointment. CTA 07/14/24 revealed severe short segment origin stenosis of L SFA and origin and proximal L popliteal artery (unchanged occlusion) with concern for abscess (intramuscular and/or perimuscular involving distal L medial head of gastrocnemius muscle). Vascular planning surgical intervention. Cardiology consulted regarding preoperative riskstratification. Brief HPI (per H&P): Geovanna Dixon Jr. is a 49 y.o. male with history of CAD s/p CABG, DM, obesity, NSTEMI, HTN, HLD, depression, tobacco use, substance use who presents to the ED today with concern for left foot pain and color changes. Vascular Surgery consulted due to concern for left foot gangrene with infection. Of note, patient has been previously admitted to the [facility] Vascular Surgery service on 05/28 - 06/02 of this year for short segment left popliteal occlusion. He was treated with a heparin drip with improvement, was also treated for cellulitis of his LLE. Per discharge summary on 06/02, he was discharged on Xarelto 2.5 mg BID, aspirin, and a course of Augmentin with plan to follow up in one month, he did not present to this appointment. Patient reports that over the past few day he has noticed the color of his left foot and toes has begun to change, which prompted him to present to the hospital. Reports some pain in his left foot but that this is not much different from what he usually has. Denies fever, chills. Denies changes in sensation of his left foot. When asked about whether he has been taking his Xarelto, patient is unsure, says he is unfamiliar with his home medication names. Does report he finished antibiotic course following discharge Patient reports that he has had difficult to control blood sugars in the past, insulin dependent. Reports he smokes 1/2 pack of cigarettes a day. Reports cocaine use a few weeks ago. Denies alcohol use. Interval events: - No significant changes from admission - ABIs pending today; CTA done - DM team guiding glucose control - Remains on IV Zosyn/Vanc and IV heparin - He denies chest pressure or shortness of breath. He states prior to CABG and PCI he experienced chest pressure, but denies this symptom since last PCI 2012. - Denies orthopnea, PND, or LE edema - Denies palpitations - He is inactive at baseline, mostly watches TV. Currently lives with his sister and brother in law. He helps with meals and grocery shopping as needed. - He feels he can climb 2 flights of stairs if his foot is not hurting. - He is a current smoker ~1/2 ppd with plans to quit after this admission Inpatient Medications: insulin lispro 0-15 Units Subcutaneous TID WC insulin glargine (Lantus;Semglee) (100 unit/mL) subcutaneous injection 50 Units Subcutaneous Nightly protriptyline 10 mg Oral TID insulin lispro 1-6 Units Subcutaneous Q4H [facility] piperacillin-tazobactam 3.375 g Intravenous Q8H senna-docusate 2 tablet Oral BID aspirin EC 81 mg Oral Daily atorvastatin 80 mg Oral QPM losartan 50 mg Oral Daily metoprolol succinate XL 25 mg Oral Daily pantoprazole EC 40 mg Oral Daily venlafaxine 225 mg Oral Daily sodium chloride 0.9 % (flush) 5 mL Intravenous BID vancomycin 1.25 g Intravenous Q8H heparin (porcine) infusion 1,700 Units/hr (07/17/24 0622) Physical Exam: Last value Range last 8 hrs Temperature Temp: 36.8 ??C (98.2 ??F) Temp: [36.8 ??C (98.2 ??F)-37.1 ??C (98.8 ??F)] Heart Rate Heart Rate: 100 Heart Rate: -- Blood Pressure BP: (!) 148/94 BP: (136-148)/(88-94) Respiratory Rate Resp: 16 Resp: [16] SpO2 SpO2: 97 % SpO2: [96 %-97 %] Intake/Output Summary (Last 24 hours) at 07/17/2024 0936 Last data filed at 07/17/2024 0624 Gross per 24 hour Intake 3080 ml Output 2050 ml Net 1030 ml Wt & BMI By Encounter Date Flowsheet Row ED to Hosp-Admission (Current) from 07/14/2024 in Surgical Unit Level 4 Wing D at [facility] ED to Hosp-Admission (Discharged) from 05/28/2024 in Surgical Unit Level 4 Wing D at [facility] Weight 99.8 kg (220 lb) 1 07/14/2024 222 102.1 kg (225 lb 1.4 oz) 1 06/02/2024 0542 BMI 31.56 1 07/14/2024 2226 33 1 05/28/2024 1743 General: Pleasant male in NAD. Cardiac: RRR, normal S1/S2, no murmur. No JVD. Respiratory: Clear. Extremities: Left foot wounds, see vascular photos. No edema. Radial pulses 2+ and symmetric. Vascular exam per vascular team. Labs reviewed and notable for: Recent Results (from the past 24 hour(s)) Heparin (unfractionated) Level Result Value Ref Range UF Heparin 0.60 IU/mL POC, GLUCOSE Result Value Ref Range Glucometer, POC 259 (H) 65 - 199 mg/dL POC, GLUCOSE Result Value Ref Range Glucometer, POC 183 65 - 199 mg/dL Potassium Result Value Ref Range Potassium 3.9 3.5 - 5.0 mMol/L Heparin (unfractionated) Level Result Value Ref Range UF Heparin 0.47 IU/mL POC, GLUCOSE Result Value Ref Range Glucometer, POC 184 65 - 199 mg/dL POC, GLUCOSE Result Value Ref Range Glucometer, POC 217 (H) 65 - 199 mg/dL POC, GLUCOSE Result Value Ref Range Glucometer, POC 262 (H) 65 - 199 mg/dL POC, GLUCOSE Result Value Ref Range Glucometer, POC 262 (H) 65 - 199 mg/dL CBC (with Diff) Result Value Ref Range White Blood Cell 11.02 (H) 4.00 - 9.50 x10(3)/mcL Red Blood Cell 4.43 (L) 4.58 - 5.54 x10(6)/mcL Hemoglobin 13.1 (L) 13.7 - 16.5 g/dL Hematocrit 38.8 (L) 40.5 - 48.5 % Mean Cell Volume 87.6 82.9 - 93.1 fL Mean Cell Hemoglobin 29.6 27.5 - 32.1 pg Mean Cell Hemoglobin Concentration 33.8 32.0 - 35.7 g/dL Platelet 367 (H) 145 - 357 x10(3)/mcL Mean Platelet Volume 9.7 7.6 - 12.9 fL RDW Standard Deviation 41.5 36.0 - 45.0 fL RDW coefficient of variation 13.0 11.4 - 13.8 % NRBC% auto 0.0 % NRBC Absolute 0.00 0.00 - 0.00 x10(3)/mcL Neutrophil % 70.4 % Neutrophil Absolute (ANC) - Automated 7.76 (H) 1.70 - 6.10 x10(3)/mcL Lymph % 20.9 % Lymph Absolute 2.30 0.90 - 3.20 x10(3)/mcL Monocyte % 6.0 % Monocyte Absolute 0.66 0.30 - 0.90 x10(3)/mcL Eos % 1.6 % Eos Absolute 0.18 0.00 - 0.40 x10(3)/mcL Basophil % 0.5 % Baso Absolute 0.05 0.00 - 0.10 x10(3)/mcL Immature Gran % 0.6 % Immature Gran Absolute 0.07 (H) 0.00 - 0.04 x10(3)/mcL Basic Metabolic Panel Result Value Ref Range Glucose 225 (H) 65 - 199 mg/dL Blood Urea Nitrogen 9 (L) 10 - 20 mg/dL Creatinine 0.49 (L) 0.80 - 1.50 mg/dL Sodium 135 135 - 145 mMol/L Potassium 3.7 3.5 - 5.0 mMol/L Chloride 103 98 - 107 mMol/L Carbon Dioxide 21 (L) 22 - 31 mMol/L Anion Gap 11 5 - 15 mMol/L Calcium 9.1 8.5 - 10.5 mg/dL Est Glomerular Filtration Rate - Male 125 mL/min/1.73 m?? Magnesium Result Value Ref Range Magnesium 0.78 0.69 - 1.07 mMol/L Phosphorus Result Value Ref Range Phosphorus 3.6 2.5 - 4.5 mg/dL Heparin (unfractionated) Level Result Value Ref Range UF Heparin 0.42 IU/mL POC, GLUCOSE Result Value Ref Range Glucometer, POC 205 (H) 65 - 199 mg/dL POC, GLUCOSE Result Value Ref Range Glucometer, POC 112 65 - 199 mg/dL Relevant imaging: ECG 05/29/2024 NSR 85 bpm Transthoracic echocardiogram 05/29/2024 Interpretation Summary -Left ventricular systolic function is mildly reduced. The left ventricular ejection fraction is 47% by Stacy's biplane. There is akinesis of the inferior wall. -The right ventricle is of normal size. Right ventricular systolic function is normal. -No significant valvular disease noted on this study. -Compared with the previous echo performed on 08/21/13, the ejection fraction has decreased. Pharm NST 05/30/2024 IMPRESSION 1. There is a small sized, fixed perfusion defect involving the apical anterior, true apex, and apical inferior segments. Findings are suggestive of prior apical infarct without any significant kaelyn-infarct ischemia. Summed rest score = 4, summed stress score = 4, summed difference score = 0. 2. Left ventricular systolic function is mildly reduced (48%). CTA aortic lower extremity runoff 07/14/2024 IMPRESSION 1. No significant aortoiliac inflow stenosis. 2. Severe short segment origin stenosis left SFA and moderate multifocal left SFA stenosis. 3. Severe origin stenosis proximal left popliteal artery and unchanged left popliteal artery occlusion extending over a 2.6 cm vessel length at and just above the knee. 4. Patent three-vessel runoff bilaterally. 5. No acute intra-abdominal findings. 6. 1 x 4 x 5.9 cm low-density intramuscular and/or perimuscular collection involving the distal aspect of the left medial head of gastrocnemius muscle concerning for abscess in the appropriate clinical setting. XR L foot 07/14/2024 IMPRESSION 1. Soft tissue ulcers at the distal first, second, and fifth toes. 2. No radiographic evidence of advanced acute osteomyelitis. Of note, the fifth toe ulcer appears deep and may potentially be exposing the tip of the distal phalanx. Correlate with exam. 3. 4 mm metallic foreign body/BB in the soft tissues between the first and second metatarsals. Assessment/Recommendations: Geovanna Dixon Jr. is a 49 y.o. male with a past medical history of CAD s/p 2V CABG (12/2011) with known patent MARTINEZ-LAD, occluded SVG-RPDA, and PCI to LCX (2012), HFmrEF / ischemic cardiomyopathy (LVEF 47%), T2DM, HTN, HLD, obesity, tobacco/substance abuse, narcolepsy/cataplexy, who initially presented to [facility] ED with left foot wounds/cellulitis and concern for limb ischemia who [facility]. Recent admit 05/2024 for short segment left popliteal occlusion; he was treated with a heparin drip and antibiotics for cellulitis with improvement. He was discharged on Xarelto 2.5mg BID, aspirin and short course of Augmentin with instructions to be seen in 1 mo [facility], which he did not show for the scheduled appointment. CTA 07/14/24 revealed severe short segment origin stenosis of L SFA and origin and proximal L popliteal artery (unchanged occlusion) with concern for abscess (intramuscular and/or perimuscular involving distal L medial head of gastrocnemius muscle). Vascular planning surgical intervention. Cardiology consulted regarding preoperative risk stratification. Of note, during recent hospitalization 05/2024 he was also evaluated by cardiology for preoperative risk assessment. He has a notable cardiac history listed above, transthoracic echocardiogram notable for mildly reduced LVEF with inferior wall hypokinesis. 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 He has [...] panel while inpatient). He would also benefit from Jardiance on discharge. Losartan 50 mg and metoprolol succinate 25 mg would both be reasonable additions given his hemodynamics and mildly reduced LV systolic function. Pharmacologic nuclear stress test showed a small fixed perfusion def ect of the apex without significant kaelyn-infarct ischemia. There has been no significant changes from a cardiac standpoint since his last preoperative assessment less than 60 days ago. He denies anginal symptoms. His prior TTE, NST, ECG and cardiac cath (2012) were reviewed. No additional cardiac testing recommended at this time. He is optimized from a CV standpoint for surgery. From a cardiac standpoint, he should continue on aspirin, statin, beta slim, ARB, and SGLT2i. His LDL 05/2024 was 86; home simvastatin 20mg was changed to atorvastatin 80mg. His LDL should be rechecked with goal LDL <70 and ideally closer to 55. Would consider adding ezetimibe 10mg daily if LDL above goal. BP above goal, would focus on optimization postoperatively. Additionally, encourage smoking cessation and aggressive diabetes control. # Cardiac preoperative risk assessment # CAD s/p CABG 2011 and LCX PCI 2012 # HFmrEF, ischemic cardiomyopathy (LVEF 47%) # Hypertension, uncontrolled # Hyperlipidemia, LDL above goal # Tobacco use disorder - No further cardiac testing - Continue aspirin 81mg daily and atorvastatin 80mg daily - Update lipid panel; If LDL >70 add ezetimibe 10mg daily (would start post-op) - Euvolemic without diuretics - GDMT: - BB: post-operatively would change metoprolol succinate 25mg daily to carvedilol 6.25mg BID (goal SBP <130/80) - ACEi/ARB/ARNi: continue losartan 50mg daily - SGLT2i: continue empagliflozin when able postoperatively - Routine follow up with cardiology as an outpatient - Encourage smoking cessation Case discussed with Dr. Oliva. Consult service will continue to follow patient. X Recommendations are above, please page if further consultation required. JUSTIN [facility] Cardiovascular Medicine 07/17/2024 Cardiology Attending Attestation/Addendum: Please see Hortensia Bales PA's note for details of the patient history and data. I have discussed, independently reviewed the pertinent diagnostic information, and agree with the principal findings as documented in the History, Physical Findings, Assessment and Plan of Care. The assessment andplan were formulated in discussion with me. No evidence of active cardiac conditions. Negative stress test for ischemia earlier this year. Acceptable cardiac risk to proceed without any further cardiac testing. Consider adding ezetimibe and changing metoprolol to carvedilol post-operatively. Please feel free to contact the cardiology serviceif any questions or concerns arise. Angel Oliva MD, [facility] Staff Chartered Wealth Manager * Plan of Care - Lauren Mitchell RN - 07/16/2024 3:04 PM EDT OUTCOME EVALUATION NOTE: OUTCOME SUMMARY: VSS on RA. No complaints of pain. Voiding adequate amounts via urinal. Pulses doppler bilaterally, wounds on left foot TATYANA. C/o numbness to LLE. PLAN MOVING FORWARD: Heparin gtt Pain control INDIVIDUALIZED FALL PREVENTION INTERVENTIONS: Patient-specific fall risk factors per assessment: [current deficits]: Lines, unfamiliar environment Assistance [level of assistance required for transfers and ambulation]: SBA Supervision [direct monitoring required during toileting and ADLs]: Eyes on Surveillance [continuous indirect monitoring]: Purposeful rounding, call saucedo within reach Patient-specific fall prevention interventions for [...] Outcome: Ongoing (Interventions Implemented as Appropriate) Problem: Infection Goal: Absence of Infection Signs and Symptoms Outcome: Ongoing (Interventions Implemented as Appropriate) Problem: Pain Acute Goal: Acceptable Pain Control and Functional Ability Outcome: Ongoing (Interventions Implemented as Appropriate) Problem: Fall Injury Risk Goal: Absence of Fall and Fall-Related Injury Outcome: Ongoing (Interventions Implemented as Appropriate) * Plan of Care - Lovely Mobley RN - 07/15/2024 6:37 PM EDT Problem: Adult Inpatient Plan of Care Goal: [...] Outcome: Ongoing (Interventions Implemented as Appropriate) Problem: Infection Goal: Absence of Infection Signs and Symptoms Outcome: Ongoing (Interventions Implemented as Appropriate) Problem: Pain Acute Goal: Acceptable Pain Control and Functional Ability Outcome: Ongoing (Interventions Implemented as Appropriate) * Consult Note - Dayanara Grover MD - 07/15/2024 9:04 AM EDT Diabetes Management Team Inpatient Consult Date of Consultation: 07/15/2024 Consult Requested by: Vascular surgery Reason for Consultation: Geovanna Dixon Jr. is a 49 y.o. male with PMH significant for T2DM, CAD s/pCABG, HTN, HLD, obesity, substance use disorder, recent admission in May for popliteal occlusion who was admitted on 07/14/2024 currently being treated for left toe gangrene and cellulitis. We are being consulted to assist with diabetes management and to provide a review of [facility] diabetes care. Diabetes History: Geovanna Dixon Jr. has had diabetes for over 15 years. OUSMANE and IA2 Ab checked last admission were negative. Current outpatient diabetes regimen: Diabetes Provider: None, he notes his PCP left the practice and he currently does not have a primary doctor Medications: He is only taking metformin 1000 mg BID at home. Last dose was 2 days prior to admission. He is also prescribed Lantus, Humalog, Jardiance, and Trulicity, but has not taken these. He is not sure when he last took any of these medications and states it may have been months. BG at home: Does not check. No supplies. Most recent HA1c was done on 05/29/24 and was 12.6%. Diabetes Complications Status: Eyes: Has not had eye exam in years Kidneys: Last Cr 0.8 07/15/24 Feet: +wounds Sensory: +neuropathy Cardiovascular : +CAD s/p CABG PMH Past Medical History: Diagnosis Date Depression Hyperlipidemia Hypertension Narcolepsy Obesity Current Hospital Medications: aspirin EC 81 mg Oral Daily atorvastatin 80 mg Oral QPM losartan 50 mg Oral Daily metoprolol succinate XL 25 mg Oral Daily pantoprazole EC 40 mg Oral Daily protriptyline 10 mg Oral Q8H venlafaxine 225 mg Oral Daily sodium chloride 0.9 % (flush) 5 mL Intravenous BID insulin lispro 2-12 Units Subcutaneous Q4H JOSE heparin (porcine) 5,000 Units Subcutaneous Q8H JOSE insulin glargine (Lantus;Semglee) (100 unit/mL) subcutaneous injection 35 Units Subcutaneous Nightly vancomycin 1.25 g Intravenous Q8H PRN: acetaminophen, sodium chloride 0.9 % (flush), lidocaine, melatonin, glucose 40% oral geL OR dextrose OR glucagon, ondansetron ODT OR ondansetron, prochlorperazine OR prochlorperazine,vancomycin AND vancomycin Allergy: No Known Allergies Vitals Last value Range last 24 hrs Temperature Temp: 36.4 ??C (97.5 ??F) Temp: [36.4 ??C (97.5 ??F)-36.7 ??C (98.1 ??F)] Heart Rate Heart Rate: 100 Heart Rate: [96-100] Blood Pressure BP: (!) 152/97 BP: (114-153)/(88-100) Respiratory Rate Resp: 16 Resp: [16-18] SpO2 SpO2: 97 % SpO2: [95 %-97 %] Physical Exam: Gen: NAD, talking in clear sentences. Laying in bed comfortably HEENT: MMM, EOMI, NC/AT Lungs: No respiratory distress Neuro: Moving all extremities. Grossly non-focal Psych: Normal mood and appropriate affect Labs: Lab Results Component Value Date BUN 8 (L) 07/15/2024 BUN 7 (L) 06/02/2024 CREATININE 0.80 07/15/2024 CREATININE 0.52 (L) 06/02/2024 GLUCOSE 309 (H) 07/15/2024 GLUCOSE 165 06/02/2024 GLUCFASTING 170 (H) 08/22/2013 ESTGFR 123 06/02/2024 Lab Results Component Value Date HA1C 12.6 (H) 05/29/2024 Lab Results Component Value Date MICROALBUR 14.4 01/06/2012 Lab Results Component Value Date CHLPL 156 05/31/2024 Lab Results Component Value Date HDL 33 05/31/2024 No results found for: LDLCHOL Lab Results Component Value Date TRIG 733 (H) 08/21/2013 Lab Results Component Value Date CHOLHDL 9.1 08/21/2013 Assessment: Patient is a 49 y.o. male with PMH significant for Type 2 DM (Last A1C of 12.6) who was admitted on07/14/2024 for left toe gangrene and cellulitis. Diabetes suboptimally controlled and currently complicated by foot wounds. Currently with variability of blood glucose levels while hospitalized requiring adjustment of insulin regimen and DM medications. OUSMANE and IA2 Ab checked last admission were negative confirming T2DM. He is only taking metformin athome. He denies any financial constraints limiting his ability to obtain the other medications he is prescribed for diabetes. He does not currently have a primary care provider. Recommend BG management with insulin while admitted with recommendations noted below. Upon discharge, he will need outpatient follow up at [facility] endocrine clinic. He lives in [place] [facility], but notes he has a truck and can drive to our clinic for follow up. He will also need BG testing supplies to use at home. We discussed with the patient at the bedside today regarding the importance of better blood glucose control to help with wound healing and try to prevent amputations. Plan: -Glargine 28 units nightly -ICR 1:8g -Moderate correction scale q4hrs Thank you for allowing us to provide care for your patient Case discussed with Dr. Reno and communicated with the primary team (vascular surgery). Dayanara Grover PGY-5 [facility] Endocrinology Associated attestation - Karen Reno MD - 07/16/2024 11:21 AM EDT Patient seen and evaluated by me and Dr. Grover. I agree with her assessment and plan. Very honest, that he is not doing what has been discussed in regards to his diabetes. WE explained that his claudication is direct effect of uncontrolled glucose, we explained other risks. UA did not show any protein on admission, he has not seen eye doctor in years, his triglycerides [id number] was very high, needs recheck and aggressive management of his lipids and glucose. TSH is normal. Other as per fellow. Karen Reno MD Professor * ED Triage - Dejah Carrillo RN - 07/14/2024 6:13 PM EDT Patient arrives as hospital transfer for L foot infection. Multiple black toes noted including the 2nd and 5th. Blanchable redness streaking up the leg. 1+ L DP pulse, +2 R DP pulse. Denies pain. Endorses tingling. Pt speaking in clear, logical and full sentences. Respiratory rate regular and unlabored. Skin appropriate color, warm and dry. Alert & oriented x4 documented in this encounter Plan of Treatment Upcoming Encounters Date Type Department Care Team (Latest Contact Info) Description 08/01/2024 7:30 AM EDT Hospital Encounter [place] [address] Lisette Maldonado MD [facility] [place] [address] 08/01/2024 7:30 AM EDT - 08/01/2024 1:43 PM EDT Surgery [place] [address] Lisette Maldonado MD [facility] [place] [address] @BYPASS GRAFT, FEM-ANT TIBIAL, -POST TIBIAL, -PERONEAL, -DP W\ SYNTHETIC CONDUIT (WRVU 23.66) Pending Results Name Type Priority Associated Diagnoses Date/Time Surgical Pathology Pathology/Cytology Routine 07/19/2024 9:49 AM EDT Fungus culture Microbiology STAT 07/19/20 9:51 AM EDT AFB culture Microbiology STAT 07/19/2024 9:51 AM EDT VS Arteriogram Lower Extremity Vascular Surgery Imaging Routine 07/20/2024 10:41 AM EDT Scheduled Orders Name Type Priority Associated Diagnoses Order Schedule Surgical Pathology Pathology/Cytology Routine Release Upon Ordering for 1 Occurrences starting 07/19/2024, 1 completed AFB culture Microbiology Routine Release Upo n Ordering for 1 Occurrences starting 07/19/2024, 1 completed SURGICAL CASE REQUEST: @BYPASS GRAFT, FEM-ANT TIBIAL, -POST TIBIAL, -PERONEAL, -DP W\ SYNTHETIC CONDUIT (WRVU 23.66) Procedures Routine One Time for 1 Occurrences starting 07/21/2024 until 07/21/2024 Scheduled Procedures Name Priority Associated Diagnoses Date/Ti me @BYPASS GRAFT, FEM-ANT TIBIA L, -POST TIBIAL, -PERONEAL, -DP W\ SYNTHETIC CONDUIT (WRVU 23.66) [facility] 08/01/2024 7:30 AM EDT documented as of this encounter Procedures Procedure Name Priority Date/Time Associated Diagnosis Comments POC, GLUCOSE Routine 07/21/2024 3:43 PM EDT POC, GLUCOSE Routine 07/21/2024 12:18 PM EDT POC, GLUCOSE Routine 07/21/2024 8:37 AM EDT CBC (WITH DIFF) Routine 07/21/2024 5:55 AM EDT PHOSPHORUS Routine 07/21/2024 5:55 AM EDT MAGNESIUM Routine 07/21/2024 5:55 AM EDT BASIC METABOLIC PANEL Routine 07/21/2024 5:55 AM EDT POC, GLUCOSE [...] and color changes. Vascular Surgery consulted due toconcern for left foot gangrene with infection. Of note, patient has beenpreviously admitted to the [facility] Vascular Surgery service on 05/28 - [...] to change, which prompted him to present [facility]. Reports some pain in his left foot but that this is not muchdifferent from what he usually has. Denies fever, chills. Denies changesin sensation of his left foot. When asked about whether he has been taking his Xarelto, patient li, says he is unfamiliar with his home [...] POC, GLUCOSE Routine 07/20/2024 3:41 AM EDT PHOSPHORUS Routine 07/20/2024 3:41 AM EDT MAGNESIUM Routine 07/20/2024 3:41 AM EDT BASIC METABOLIC PANEL Routine 07/20/2024 3:41 AM EDT POC, GLUCOSE [...] & ANAEROBIC STAT 07/19/2024 9:51 AM EDT BONE CULTURE STAT 07/19/2024 9:51 AM EDT FUNGUS CULTURE STAT 07/19/2024 9:51 AM EDT Amputation Toe, Mt-P Jt ([id number]) 07/19/2024 8:57 AM EDT peripheral artery disease POC, GLUCOSE Routine 07/19/2024 7:21 AM EDT HEPARIN (UNFRACTIONATED) LEVEL Timed 07/19/2024 6:29 AM EDT POC, GLUCOSE Routine 07/19/2024 4:24 AM EDT CBC (WITH DIFF) Routine 07/19/2024 3:45 AM EDT PHOSPHORUS Routine 07/19/2024 3:45 AM EDT MAGNESIUM Routine 07/19/2024 3:45 AM EDT BASIC METABOLIC PANEL Routine 07/19/2024 3:45 AM EDT POC, GLUCOSE Routine 07/19/2024 12:01 AM EDT POC, GLUCOSE Routine 07/18/2024 9:46 PM EDT POC, GLUCOSE Routine 07/18/2024 3:20 PM EDT POC, GLUCOSE Routine 07/18/2024 11:53 AM EDT VANCOMYCIN LEVEL, RANDOM Timed 07/18/2024 8:01 AM EDT POC, GLUCOSE Routine 07/18/2024 7:21 AM EDT HEPARIN (UNFRACTIONATED) LEVEL Timed 07/18/2024 3:33 AM EDT CBC (WITH DIFF) Routine 07/18/2024 3:33 AM EDT PHOSPHORUS Routine 07/18/2024 3:33 AM EDT MAGNESIUM Routine 07/18/2024 3:33 AM EDT LDL CHOLESTEROL, DIRECT Routine 07/18/2024 3:33 AM EDT HDL/CHOL PROFILE Routine 07/18/2024 3:33 AM EDT BASIC METABOLIC PANEL Routine 07/18/2024 3:33 AM EDT POC, GLUCOSE [...] (UNFRACTIONATED) LEVEL Timed 07/17/2024 3:42 AM EDT CBC (WITH DIFF) Routine 07/17/2024 3:42 AM EDT PHOSPHORUS Routine 07/17/2024 3:42 AM EDT MAGNESIUM Routine 07/17/2024 3:42 AM EDT BASIC METABOLIC PANEL Routine 07/17/2024 3:42 AM EDT POC, GLUCOSE [...] (UNFRACTIONATED) LEVEL Timed 07/16/2024 2:07 AM EDT CBC (WITH DIFF) Routine 07/16/2024 2:07 AM EDT MAGNESIUM Routine 07/16/2024 2:07 AM EDT BASIC METABOLIC PANEL Routine 07/16/2024 2:07 AM EDT POC, GLUCOSE [...] POC, GLUCOSE Routine 07/15/2024 2:48 AM EDT CBC (WITH DIFF) Routine 07/15/2024 12:45 AM EDT BASIC METABOLIC PANEL Routine 07/15/2024 12:45 AM EDT POC, GLUCOSE Routine 07/15/2024 12:[address] ANGIOGRAM AORTA LOWER EXTREMITY RUNOFF STAT 07/14/2024 11:57 PM EDT XR FOOT MIN 3 VIEWS LEFT STAT 07/14/2024 9:11 PM EDT LACTATE, WHOLE BLOOD POC Routine 07/14/2024 7:41 PM EDT CBC (WITH DIFF) STAT 07/14/2024 7:39 PM EDT BASIC METABOLIC PANEL STAT 07/14/2024 7:39 PM EDT documented in this encounter Results * POC, GLUCOSE (07/21/2024 3:43 PM EDT) [facility] Glucometer, POC 111 65 - 199 mg/dL 07/21/2024 3:44 PM EDT [facility] Comment:Supplemental ranges: <140 mg/dL before meals <180 mg/dL all other times of the day. Blood CAPILLARY BLOOD / Unknown 07/21/2024 3:43 PM EDT 07/21/2024 3:44 PM EDT Thony Garcia MD POINT OF CARE TEST O GILDA Performing Organization Address [facility] Co de Phone Number [facility] [place] [address] * (ABNORMAL) POC, GLUCOSE (07/21/2024 12:18 PM EDT) Glucometer, POC 247(H) 65 - 199 mg/dL 07/21/2024 12:20 PM EDT [facility] Comment:Supplemental ranges: <140 mg/dL before meals <180 mg/dL all other times of the day. Blood CAPILLARY BLOOD / Unknown 07/21/2024 12:18 PM EDT 07/21/2024 12:20 PM EDT Thony Garcia MD POINT OF CARE TEST O GILDA Performing Organization Address [facility] Co de Phone Number [facility] [place] [address] * POC, GLUCOSE (07/21/2024 8:37 AM EDT) Glucometer, POC 163 65 - 199 mg/dL 07/21/2024 8:38 AM EDT [facility] Comment:Supplemental ranges: <140 mg/dL before meals <180 mg/dL all other times of the day. Blood CAPILLARY BLOOD / Unknown 07/21/2024 8:37 AM EDT 07/21/2024 8:38 AM EDT Thony Garcia MD POINT OF CARE TEST O GILDA Performing Organization Address City/[facility]/ZIP Co de Phone Number [facility] [place] [address] * (ABNORMAL) Basic Metabolic Panel (07/21/2024 5:55 AM EDT) Glucose 172 65 - 199 mg/dL 07/21/2024 6:45 AM EDT [facility] Comment:Glucose Concentratio n >=200 mg/dL plus symptoms is consistent with Diabetes Mellitus. Blood Urea Nitrogen 12 10 - 20 mg/dL 07/21/2024 6:45 AM EDT [facility] Creatinine 0.55(L) 0.80 - 1.50 mg/dL 07/21/2024 6:45 AM [facility] Sodium 138 135 - 145 mMol/L 07/21/2024 6:45 AM [facility] Potassium 4.1 3.5 - 5.0 mMol/L 07/21/2024 6:45 AM [facility] Chloride 103 98 - 107 mMol/L 07/21/2024 6:45 AM [facility] Carbon Dioxide 23 22 - 31 mMol/L 07/21/2024 6:45 AM [facility] Anion Gap 12 5 - 15 mMol/L 07/21/2024 6:45 AM [facility] Calcium 9.4 8.5 - 10.5 mg/dL 07/21/2024 6:45 AM [facility] Est Glomerular Filtration Rate - Male 121 mL/min/1. 73 m?? 07/21/2024 6:45 AM [facility] Comment: This patient's estimated GFR [...] 5:55 AM EDT 07/21/2024 6:13 AM EDT Thony Garcia MD CHEMISTRY ORDERABLES [facility] [place] [address] * (ABNORMAL) CBC (with Diff) (07/21/2024 5:55 AM EDT) White Blood Cell 10.11(H) 4.00 - 9.50 x10(3)/mc L 07/21/2024 6:17 AM EDT [facility] Red Blood Cell 4.52(L) 4.58 - 5.54 x10(6)/mc L 07/21/2024 6:17 AM [facility] Hemoglobin 13.2(L) 13.7 - 16.5 g/dL 07/21/2024 6:17 AM [facility] Hematocrit 39.7(L) 40.5 - 48.5 % 07/21/2024 6:17 AM [facility] Mean Cell Volume 87.8 82.9 - 93.1 fL 07/21/2024 6:17 AM [facility] Mean Cell Hemoglobin 29.2 27.5 - 32.1 pg 07/21/2024 6:17 AM [facility] Mean Cell Hemoglobin Concentration 33.2 32.0 - 35.7 g/dL 07/21/2024 6:17 AM [facility] Platelet 405(H) 145 - 357 x10(3)/mc L 07/21/2024 6:17 AM [facility] Mean Platelet Volume 9.3 7.6 - 12.9 fL 07/21/2024 6:17 AM [facility] RDW Standard Deviation 42.2 36.0 - 45.0 fL 07/21/2024 6:17 AM [facility] RDW coefficient of variation 13.2 11.4 - 13.8 % 07/21/2024 6:17 AM [facility] NRBC% auto 0.0 % 07/21/2024 6:17 AM [facility] NRBC Absolute 0.00 0.00 - 0.00 x10(3)/mc L 07/21/2024 6:17 AM [facility] Neutrophil % 64.5 % 07/21/2024 6:17 AM [facility] Neutrophil Absolute (ANC) - Automated 6.52(H) 1.70 - 6.10 x10(3)/mc L 07/21/2024 6:17 AM [facility] Lymph % 24.3 % 07/21/2024 6:17 AM [facility] Lymph Absolute 2.46 0.90 - 3.20 x10(3)/mc L 07/21/2024 6:17 AM [facility] Monocyte % 8.4 % 07/21/2024 6:17 AM [facility] Monocyte Absolute 0.85 0.30 - 0.90 x10(3)/mc L 07/21/2024 6:17 AM [facility] Eos % 1.6 % 07/21/2024 6:17 AM [facility] Eos Absolute 0.16 0.00 - 0.40 x10(3)/mc L 07/21/2024 6:17 AM [facility] Basophil % 0.7 % 07/21/2024 6:17 AM [facility] Baso Absolute 0.07 0.00 - 0.10 x10(3)/mc L 07/21/2024 6:17 AM [facility] Immature Gran % 0.5 % 6:17 AM [facility] Immature Gran Absolute 0.05(H) 0.00 - 0.04 x10(3)/mc L 07/21/2024 6:17 AM EDT [facility] Blood VENOUS BLOOD SPECIMEN / Unknown IP Care Team Draw / Unknown 07/21/2024 5:55 AM EDT 07/21/2024 6:13 AM EDT Thony Garcia MD HEMATOLOGY ORDERABLE S [facility] [place] [address] * Phosphorus (07/21/2024 5:55 AM EDT) Phosphorus 3.9 2.5 - 4.5 mg/dL 07/21/2024 6:45 AM EDT [facility] Blood VENOUS BLOOD SPECIMEN / Unknown IP Care Team Draw / Unknown 07/21/2024 5:55 AM EDT 07/21/2024 6:13 AM EDT Thony Garcia MD CHEMISTRY ORDERABLES Performing Organization Address City/[facility]/ZIP Co de Phone Number [facility] [place] [address] * Magnesium (07/21/2024 5:55 AM EDT) Magnesium 0.82 0.69 - 1.07 mMol/L 07/21/2024 6:45 AM EDT [facility] Blood VENOUS BLOOD SPECIMEN / Unknown IP Care Team Draw / Unknown 07/21/2024 5:55 AM EDT 07/21/2024 6:13 AM EDT Thony Garcia MD CHEMISTRY ORDERABLES Performing Organization Address City/[facility]/ZIP Co de Phone Number [facility] [place] [address] * POC, GLUCOSE (07/21/2024 3:57 AM EDT) Glucometer, POC 163 65 - 199 mg/dL 07/21/2024 4:01 AM EDT [facility] Comment:Supplemental ranges: <140 mg/dL before meals <180 mg/dL all other times of the day. Blood CAPILLARY BLOOD / Unknown 07/21/2024 3:57 AM EDT 07/21/2024 4:01 AM EDT Thony Garcia MD POINT OF CARE TEST O GILDA Performing Organization Address City/[facility]/ZIP Co de Phone Number [facility] [place] [address] * POC, GLUCOSE (07/20/2024 11:54 PM EDT) Glucometer, POC 190 65 - 199 mg/dL 07/20/2024 11:58 PM EDT [facility] Comment:Supplemental ranges: <140 mg/dL before meals <180 mg/dL all other times of the day. Blood CAPILLARY BLOOD / Unknown 07/20/2024 11:54 PM EDT 07/20/2024 11:58 PM EDT Thony Garcia MD POINT OF CARE TEST O GILDA Performing Organization Address [facility] Co de Phone Number [facility] [place] [address] * POC, GLUCOSE (07/20/2024 8:17 PM EDT) Glucometer, POC 166 65 - 199 mg/dL 07/20/2024 8:17 PM EDT [facility] Comment:Supplemental ranges: <140 mg/dL before meals <180 mg/dL all other times of the day. Blood CAPILLARY BLOOD / Unknown 07/20/2024 8:17 PM EDT 07/20/2024 8:18 PM EDT Thony Garcia MD POINT OF CARE TEST O RDTYESHA Performing Organization Address City/[facility]/ZIP Co de Phone Number [facility] [place] [address] * (ABNORMAL) POC, GLUCOSE (07/20/2024 3:51 PM EDT) Glucometer, POC 218(H) 65 - 199 mg/dL 07/20/2024 3:51 PM EDT [facility] Comment:Supplemental ranges: <140 mg/dL before meals <180 mg/dL all other times of the day. Blood CAPILLARY BLOOD / Unknown 07/20/2024 3:51 PM EDT 07/20/2024 3:51 PM EDT Thony Garcia MD POINT OF CARE TEST O RDERAHERNANDEZ Performing Organization Address [facility]/ZIP Co de Phone Number [facility] [place] [address] * POC, GLUCOSE (07/20/2024 10:55 AM EDT) Glucometer, POC 96 65 - 199 mg/dL 07/20/2024 10:56 AM EDT [facility] Comment:Supplemental ranges: <140 mg/dL before meals <180 mg/dL all other times of the day. Blood CAPILLARY BLOOD / Unknown 07/20/2024 10:55 AM EDT 07/20/2024 10:56 AM EDT Thony Garcia MD POINT OF CARE TEST O RDERAHERNANDEZ Performing Organization Address City/[facility] Co de Phone Number [facility] [place] [address] * Vein Map Arm, Bilateral (07/20/2024 10:48 AM EDT) VB Text Report Department: Vascular Surgery Lab Patient: [id number] (GEOVANNA DIXON) CPT: 84069 Referring Physician: THONY GARCIA ?? Indications: Patient with CLI, needs [...] Report [facility]ASCU[facility] 07/20/2024 10:4 8 AM EDT Thony Garcia MD VASCULAR ORDERABLES Performing Organization Address City/[facility] Co de Phone Number [facility] * POC, GLUCOSE (07/20/2024 8:12 AM EDT) [facility] Signature Glucometer, POC 119 65 - 199 mg/dL 07/20/2024 8:12 AM EDT [facility] Comment:Supplemental ranges: <140 mg/dL before meals <180 mg/dL all other times of the day. Blood CAPILLARY BLOOD / Unknown 07/20/2024 8:12 AM EDT 07/20/2024 8:12 AM EDT Thony Garcia MD POINT OF CARE TEST O RDERABLES Performing Organization Address City/[facility]/ZIP Co de Phone Number [facility] [place] [address] * (ABNORMAL) CBC (with Diff) (07/20/2024 3:42 AM EDT) White Blood Cell 16.61(H) 4.00 - 9.50 x10(3)/mc L 07/20/2024 4:23 AM [facility] Red Blood Cell 4.44(L) 4.58 - 5.54 x10(6)/mc L 07/20/2024 4:23 AM [facility] Hemoglobin 13.0(L) 13.7 - 16.5 g/dL 07/20/2024 4:23 AM [facility] Hematocrit 39.2(L) 40.5 - 48.5 % 07/20/2024 4:23 AM [facility] Mean Cell Volume 88.3 82.9 - 93.1 fL 07/20/2024 4:23 AM [facility] Mean Cell Hemoglobin 29.3 27.5 - 32.1 pg 07/20/2024 4:23 AM [facility] Mean Cell Hemoglobin Concentration 33.2 32.0 - 35.7 g/dL 07/20/2024 4:23 AM [facility] Platelet 458(H) 145 - 357 x10(3)/mc L 07/20/2024 4:23 AM [facility] Mean Platelet Volume 9.5 7.6 - 12.9 fL 07/20/2024 4:23 AM [facility] RDW Standard Deviation 42.5 36.0 - 45.0 fL 07/20/2024 4:23 AM [facility] RDW coefficient of variation 13.2 11.4 - 13.8 % 07/20/2024 4:23 AM [facility] NRBC% auto 0.0 % 07/20/2024 4:23 AM [facility] NRBC Absolute 0.00 0.00 - 0.00 x10(3)/mc L 07/20/2024 4:23 AM [facility] Neutrophil % 74.2 % 07/20/2024 4:23 AM EDT [facility] Neutrophil Absolute (ANC) - Automated 12.32(H) 1.70 - 6.10 x10(3)/mc L 07/20/2024 4:23 AM EDT [facility] Lymph % 16.5 % 07/20/2024 4:23 AM EDT [facility] Lymph Absolute 2.74 0.90 - 3.20 x10(3)/mc L 07/20/2024 4:23 AM EDT [facility] Monocyte % 7.5 % 07/20/2024 4:23 AM EDT [facility] Monocyte Absolute 1.25(H) 0.30 - 0.90 x10(3)/mc L 07/20/2024 4:23 AM EDT [facility] Eos % 0.8 % 07/20/2024 4:23 AM [facility]T [facility] [facility] Eos Absolute 0.14 0.00 - 0.40 x10(3)/mc L 07/20/2024 4:23 AM EDT [facility] Basophil % 0.4 % 07/20/2024 4:23 AM EDT [facility] Baso Absolute 0.06 0.00 - 0.10 x10(3)/mc L 07/20/2024 4:23 AM EDT [facility] Immature Gran % 0.6 % 4:23 AM EDT [facility] Immature Gran Absolute 0.10(H) 0.00 - 0.04 x10(3)/mc L 07/20/2024 4:23 AM EDT [facility] Blood VENOUS BLOOD SPECIMEN / Unknown IP Care Team Draw / Unknown 07/20/2024 3:42 AM EDT 07/20/2024 4:09 AM EDT Thony Garcia MD HEMATOLOGY ORDERABLE S [facility] [place] [address] * (ABNORMAL) POC, GLUCOSE (07/20/2024 3:41 AM EDT) Glucometer, POC 204(H) 65 - 199 mg/dL 07/20/2024 3:41 AM EDT [facility] Comment:Supplemental ranges: <140 mg/dL before meals <180 mg/dL all other times of the day. Blood CAPILLARY BLOOD / Unknown 07/20/2024 3:41 AM EDT 07/20/2024 3:41 AM EDT Thnoy Garcia MD POINT OF CARE TEST O RDERABLES [facility] [place] [address] * (ABNORMAL) Basic Metabolic Panel (07/20/2024 3:41 AM EDT) Glucose 209(H) 65 - 199 mg/dL 07/20/2024 5:00 AM EDT [facility] Comment:Glucose Concentratio n >=200 mg/dL plus symptoms is consistent with Diabetes Mellitus. Blood Urea Nitrogen 12 10 - 20 mg/dL 07/20/2024 5:00 AM [facility] Creatinine 0.53(L) 0.80 - 1.50 mg/dL 07/20/2024 5:00 AM [facility] Sodium 135 135 - 145 mMol/L 07/20/2024 5:00 AM [facility] Potassium 4.2 3.5 - 5.0 mMol/L 07/20/2024 5:00 AM [facility] Chloride 102 98 - 107 mMol/L 07/20/2024 5:00 AM [facility] Carbon Dioxide 21(L) 22 - 31 mMol/L 07/20/2024 5:00 AM [facility] Anion Gap 12 5 - 15 mMol/L 07/20/2024 5:00 AM [facility] Calcium 9.4 8.5 - 10.5 mg/dL 07/20/2024 5:00 AM EDT [facility] Est Glomerular Filtration Rate - Male 122 mL/min/1. 73 m?? 07/20/2024 5:00 AM EDT [facility] Comment: This patient's estimated [...] Unknown IP Care Team Draw / Unknown 07/20/2024 3:41 AM EDT 07/20/2024 4:09 AM EDT Tohny Garcia MD CHEMISTRY ORDERABLES [facility] [place] [address] * Phosphorus (07/20/2024 3:41 AM EDT) Phosphorus 3.4 2.5 - 4.5 mg/dL 07/20/2024 4:40 AM EDT [facility] Blood VENOUS BLOOD SPECIMEN / Unknown IP Care Team Draw / Unknown 07/20/2024 3:41 AM EDT 07/20/2024 4:09 AM EDT Thony Garcia MD CHEMISTRY ORDERABLES [facility] [place] [address] * Magnesium (07/20/2024 3:41 AM EDT) Magnesium 0.90 0.69 - 1.07 mMol/L 07/20/2024 4:40 AM EDT [facility] Blood VENOUS BLOOD SPECIMEN / Unknown IP Care Team Draw / Unknown 07/20/2024 3:41 AM EDT 07/20/2024 4:09 AM EDT Thony Garcia MD CHEMISTRY ORDERABLES Performing Organization Address [facility]/ZIP Co de Phone Number [facility] [place] [address] * (ABNORMAL) POC, GLUCOSE (07/20/2024 12:56 AM EDT) Glucometer, POC 342(H) 65 - 199 mg/dL 07/20/2024 12:58 AM EDT [facility] Comment:Supplemental ranges: <140 mg/dL before meals <180 mg/dL all other times of the day. Blood CAPILLARY BLOOD / Unknown 07/20/2024 12:56 AM EDT 07/20/2024 12:58 AM EDT Thony Garcia MD POINT OF CARE TEST O RDERABLES Performing Organization Address [facility] Co de Phone Number [facility] [place] [address] * (ABNORMAL) POC, GLUCOSE (07/19/2024 11:04 PM EDT) Glucometer, POC 296(H) 65 - 199 mg/dL 07/19/2024 11:05 PM EDT [facility] Comment:Supplemental ranges: <140 mg/dL before meals <180 mg/dL all other times of the day. Blood CAPILLARY BLOOD / Unknown 07/19/2024 11:04 PM EDT 07/19/2024 11:05 PM EDT Thony Garcia MD POINT OF CARE TEST O RDERABLES Performing Organization Address City/[facility]/ZIP Co de Phone Number [facility] [place] [address] * (ABNORMAL) POC, GLUCOSE (07/19/2024 7:38 PM EDT) Glucometer, POC 251(H) 65 - 199 mg/dL 07/19/2024 7:39 PM EDT [facility] Comment:Supplemental ranges: <140 mg/dL before meals <180 mg/dL all other times of the day. Blood CAPILLARY BLOOD / Unknown 07/19/2024 7:38 PM EDT 07/19/2024 7:39 PM EDT Thony Garcia MD POINT OF CARE TEST O RDERAHERNANDEZ Performing Organization Address [facility] Co de Phone Number [facility] [place] [address] * POC, GLUCOSE (07/19/2024 4:48 PM EDT) Glucometer, POC 171 65 - 199 mg/dL 07/19/2024 4:49 PM EDT [facility] Comment:Supplemental ranges: <140 mg/dL before meals <180 mg/dL all other times of the day. Blood CAPILLARY BLOOD / Unknown 07/19/2024 4:48 PM EDT 07/19/2024 4:49 PM EDT Thony Garcia MD POINT OF CARE TEST O GILDA Performing Organization Address [facility] Co de Phone Number [facility] [place] [address] * POC, GLUCOSE (07/19/2024 12:21 PM EDT) Glucometer, POC 143 65 - 199 mg/dL 07/19/2024 12:22 PM EDT [facility] Comment:Supplemental ranges: <140 mg/dL before meals <180 mg/dL all other times of the day. Blood CAPILLARY BLOOD / Unknown 07/19/2024 12:21 PM EDT 07/19/2024 12:22 PM EDT Thony Garcia MD POINT OF CARE TEST O RDERABLES Performing Organization Address [facility]/ZIP Co de Phone Number [facility] [place] [address] * POC, GLUCOSE (07/19/2024 11:24 AM EDT) Glucometer, POC 111 65 - 199 mg/dL 07/19/2024 11:24 AM EDT [facility] Comment:Supplemental ranges: <140 mg/dL before meals <180 mg/dL all other times of the day. Blood CAPILLARY BLOOD / Unknown 07/19/2024 11:24 AM EDT 07/19/2024 11:24 AM EDT Thony Garcia MD POINT OF CARE TEST O RDERABLES Performing Organization Address [facility] Co de Phone Number [facility] [place] [address] * Anaerobic Culture (07/19/2024 9:51 AM EDT) Anaerobic Culture No anaerobic organisms isolated 07/23/2024 3:24 PM EDT [facility] Bone STRUCTURE OF TOE OF LEFT FOOT / Unknown 07/19/2024 9:51 AM EDT Comment:PERIPHERAL ARTERY DI SEASE Thony Garcia MD MICROBIOLOGY - GENER AL ORDERABLES Performing Organization Address [facility]/ZIP Co de Phone Number [facility] [place] [address] * Bone Culture (07/19/2024 9:51 AM EDT) Bone Culture No growth 07/23/2024 12:36 PM EDT [facility] Gram Stain No neutrophils seen 07/23/2024 12:36 PM EDT [facility] Gram Stain No microorganisms seen 07/23/2024 12:36 PM EDT [facility] Bone STRUCTURE OF TOE OF LEFT FOOT / Unknown 07/19/2024 9:51 AM EDT Comment:PERIPHERAL ARTERY DI SEASE Thony Garcia MD MICROBIOLOGY - GENER AL ORDERABLES Performing Organization Address [facility]/ZIP Co de Phone Number [facility] [place] [address] * POC, GLUCOSE (07/19/2024 7:21 AM EDT) Glucometer, POC 195 65 - 199 mg/dL 07/19/2024 7:22 AM EDT [facility] Comment:Supplemental ranges: <140 mg/dL before meals <180 mg/dL all other times of the day. Blood CAPILLARY BLOOD / Unknown 07/19/2024 7:21 AM EDT 07/19/2024 7:22 AM EDT Thony Garcia MD POINT OF CARE TEST O RDERABLES Performing Organization Address [facility] Co de Phone Number [facility] [place] [address] * Heparin (unfractionated) Level (07/19/2024 6:29 AM EDT) UF Heparin 0.42 IU/mL 07/19/2024 6:44 AM EDT [facility] Comment: Heparin (anti-Xa) levels should be [...] 6:29 AM EDT 07/19/2024 6:34 AM EDT Thony Garcia MD HEMATOLOGY ORDERABLE S [facility] [place] [address] * POC, GLUCOSE (07/19/2024 4:24 AM EDT) Glucometer, POC 118 65 - 199 mg/dL 07/19/2024 4:24 AM EDT [facility] Comment:Supplemental ranges: <140 mg/dL before meals <180 mg/dL all other times of the day. Blood CAPILLARY BLOOD / Unknown 07/19/2024 4:24 AM EDT 07/19/2024 4:24 AM EDT Thony Garcia MD POINT OF CARE TEST O RDERABLES Performing Organization Address City/[facility]/ZIP Co de Phone Number [facility] [place] [address] * (ABNORMAL) Basic Metabolic Panel (07/19/2024 3:45 AM EDT) Glucose 117 65 - 199 mg/dL 07/19/2024 4:40 AM EDT [facility] Comment:Glucose Concentratio n >=200 mg/dL plus symptoms is consistent with Diabetes Mellitus. Blood Urea Nitrogen 7(L) 10 - 20 mg/dL 07/19/2024 4:40 AM EDT [facility] Creatinine 0.56(L) 0.80 - 1.50 mg/dL 07/19/2024 4:40 AM EDT [facility] Sodium 138 135 - 145 mMol/L 07/19/2024 4:40 AM EDT [facility] Potassium 3.9 3.5 - 5.0 mMol/L 07/19/2024 4:40 AM EDT [facility] Chloride 103 98 - 107 mMol/L 07/19/2024 4:40 AM EDT [facility] Carbon Dioxide 23 22 - 31 mMol/L 07/19/2024 4:40 AM EDT [facility] Anion Gap 12 5 - 15 mMol/L 07/19/2024 4:40 AM EDT [facility] Calcium 9.6 8.5 - 10.5 mg/dL 07/19/2024 4:40 AM EDT [facility] Est Glomerular Filtration Rate - Male 120 mL/min/1. 73 m?? 07/19/2024 4:40 AM EDT [facility] Comment: This patient's estimated [...] IP Care Team Draw / Unknown 07/19/2024 3:45 AM EDT 07/19/2024 4:00 AM EDT Thony Garcia MD CHEMISTRY ORDERABLES [facility] [place] [address] * (ABNORMAL) CBC (with Diff) (07/19/2024 3:45 AM EDT) White Blood Cell 12.45(H) 4.00 - 9.50 x10(3)/mc L 07/19/2024 4:09 AM EDT [facility] Red Blood Cell 4.72 4.58 - 5.54 x10(6)/mc L 07/19/2024 4:09 AM EDT [facility] Hemoglobin 13.6(L) 13.7 - 16.5 g/dL 07/19/2024 4:09 AM [facility] Hematocrit 41.0 40.5 - 48.5 % 07/19/2024 4:09 AM [facility] Mean Cell Volume 86.9 82.9 - 93.1 fL 07/19/2024 4:09 AM [facility] Mean Cell Hemoglobin 28.8 27.5 - 32.1 pg 07/19/2024 4:09 AM [facility] Mean Cell Hemoglobin Concentration 33.2 32.0 - 35.7 g/dL 07/19/2024 4:09 AM [facility] Platelet 421(H) 145 - 357 x10(3)/mc L 07/19/2024 4:09 AM [facility] Mean Platelet Volume 9.4 7.6 - 12.9 fL 07/19/2024 4:09 AM [facility] RDW Standard Deviation 41.3 36.0 - 45.0 fL 07/19/2024 4:09 AM [facility] RDW coefficient of variation 13.1 11.4 - 13.8 % 07/19/2024 4:09 AM [facility] NRBC% auto 0.0 % 07/19/2024 4:09 AM [facility] NRBC Absolute 0.00 0.00 - 0.00 x10(3)/mc L 07/19/2024 4:09 AM [facility] Neutrophil % 66.6 % 07/19/2024 4:09 AM [facility] Neutrophil Absolute (ANC) - Automated 8.29(H) 1.70 - 6.10 x10(3)/mc L 07/19/2024 4:09 AM [facility] Lymph % 22.6 % 07/19/2024 4:09 AM [facility] Lymph Absolute 2.81 0.90 - 3.20 x10(3)/mc L 07/19/2024 4:09 AM [facility] Monocyte % 7.5 % 07/19/2024 4:09 AM EDT [facility] Monocyte Absolute 0.93(H) 0.30 - 0.90 x10(3)/mc L 07/19/2024 4:09 AM EDT [facility] Eos % 1.9 % 07/19/2024 4:09 AM EDT [facility] Eos Absolute 0.24 0.00 - 0.40 x10(3)/mc L 07/19/2024 4:09 AM EDT [facility] Basophil % 0.8 % 07/19/2024 4:09 AM EDT [facility] Baso Absolute 0.10 0.00 - 0.10 x10(3)/mc L 07/19/2024 4:09 AM EDT [facility] Immature Gran % 0.6 % 4:09 AM EDT [facility] Immature Gran Absolute 0.08(H) 0.00 - 0.04 x10(3)/mc L 07/19/2024 4:09 AM EDT [facility] Blood VENOUS BLOOD SPECIMEN / Unknown IP Care Team Draw / Unknown 07/19/2024 3:45 AM EDT 07/19/2024 4:00 AM EDT Thony Garcia MD HEMATOLOGY ORDERABLE S Performing Organization Address City/State/[facility] Co de Phone Number [facility] [place] [address] * Phosphorus (07/19/2024 3:45 AM EDT) Phosphorus 4.3 2.5 - 4.5 mg/dL 07/19/2024 4:40 AM EDT [facility] Blood VENOUS BLOOD SPECIMEN / Unknown IP Care Team Draw / Unknown 07/19/2024 3:45 AM EDT 07/19/2024 4:00 AM EDT Thony Garcia MD CHEMISTRY ORDERABLES Performing Organization Address City/[facility] Co de Phone Number [facility] [place] [address] * Magnesium (07/19/2024 3:45 AM EDT) Magnesium 0.89 0.69 - 1.07 mMol/L 07/19/2024 4:40 AM EDT [facility] Blood VENOUS BLOOD SPECIMEN / Unknown IP Care Team Draw / Unknown 07/19/2024 3:45 AM EDT 07/19/2024 4:00 AM EDT Thony Garcia MD CHEMISTRY ORDERABLES Performing Organization Address [facility] Co de Phone Number [facility] [place] [address] * POC, GLUCOSE (07/19/2024 12:01 AM EDT) Glucometer, POC 186 65 - 199 mg/dL 07/19/2024 12:02 AM EDT [facility] Comment:Supplemental ranges: <140 mg/dL before meals <180 mg/dL all other times of the day. Blood CAPILLARY BLOOD / Unknown 07/19/2024 12:01 AM EDT 07/19/2024 12:02 AM EDT Thony Garcia MD POINT OF CARE TEST O RDERABLES Performing Organization Address [facility] Co de Phone Number [facility] [place] [address] * POC, GLUCOSE (07/18/2024 9:46 PM EDT) Glucometer, POC 185 65 - 199 mg/dL 07/18/2024 9:47 PM EDT [facility] Comment:Supplemental ranges: <140 mg/dL before meals <180 mg/dL all other times of the day. Blood CAPILLARY BLOOD / Unknown 07/18/2024 9:46 PM EDT 07/18/2024 9:47 PM EDT Thony Garcia MD POINT OF CARE TEST O RDERABLES Performing Organization Address City/[facility]/ZIP Co de Phone Number [facility] [place] [address] * POC, GLUCOSE (07/18/2024 3:20 PM EDT) Glucometer, POC 134 65 - 199 mg/dL 07/18/2024 3:20 PM EDT [facility] Comment:Supplemental ranges: <140 mg/dL before meals <180 mg/dL all other times of the day. Blood CAPILLARY BLOOD / Unknown 07/18/2024 3:20 PM EDT 07/18/2024 3:21 PM EDT Thony Garcia MD POINT OF CARE TEST O RDERAHERNANDEZ Performing Organization Address [facility] Co de Phone Number [facility] [place] [address] * (ABNORMAL) POC, GLUCOSE (07/18/2024 11:53 AM EDT) Glucometer, POC 244(H) 65 - 199 mg/dL 07/18/2024 11:53 AM EDT [facility] Comment:Supplemental ranges: <140 mg/dL before meals <180 mg/dL all other times of the day. Blood CAPILLARY BLOOD / Unknown 07/18/2024 11:53 AM EDT 07/18/2024 11:54 AM EDT Thony Garcia MD POINT OF CARE TEST O GILDA Performing Organization Address City/[facility]/ZIP Co de Phone Number [facility] [place] [address] * Vancomycin Level, Random (07/18/2024 8:01 AM EDT) Vancomycin, Random 17.2 mg/L 2023 9:40 AM EDT [facility] Comment:This level is for de termination of the patient's vancomycin amtc-srrht-vgo-curve (AUC) value. Contact the inpatient pharmacy for interpretation. Blood VENOUS BLOOD SPECIMEN / Unknown IP Care Team Draw / Unknown 07/18/2024 8:01 AM EDT 07/18/2024 8:39 AM EDT Thony Garcia MD CHEMISTRY ORDERABLES Performing Organization Address City/[facility]/ZIP Co de Phone Number [facility] [place] [address] * POC, GLUCOSE (07/18/2024 7:21 AM EDT) Glucometer, POC 177 65 - 199 mg/dL 07/18/2024 7:22 AM EDT [facility] Comment:Supplemental ranges: <140 mg/dL before meals <180 mg/dL all other times of the day. Blood CAPILLARY BLOOD / Unknown 07/18/2024 7:21 AM EDT 07/18/2024 7:22 AM EDT Thony Garcia MD POINT OF CARE TEST O RDERABLES Performing Organization Address [facility] Co de Phone Number [facility] [place] [address] * Heparin (unfractionated) Level (07/18/2024 3:33 AM EDT) UF Heparin 0.35 IU/mL 07/18/2024 4:42 AM EDT [facility] Comment: Heparin (anti-Xa) levels should be [...] indications in cardiac surgery): ? 0.1-0.3 IU/mL Specimen drawn more than one hour prior to testing. Results may not be reliable for heparin monitoring. Result may be falsely low. Blood VENOUS BLOOD SPECIMEN / Unknown IP Care Team Draw / Unknown 07/18/2024 3:33 AM EDT 07/18/2024 4:21 AM EDT Thony Garcia MD HEMATOLOGY ORDERABLE S [facility] [place] [address] * (ABNORMAL) Basic Metabolic Panel (07/18/2024 3:33 AM EDT) Glucose 170 65 - 199 mg/dL 07/18/2024 4:50 AM EDT [facility] Comment:Glucose Concentratio n >=200 mg/dL plus symptoms is consistent with Diabetes Mellitus. Blood Urea Nitrogen 8(L) 10 - 20 mg/dL 07/18/2024 4:[facility] Creatinine 0.53(L) 0.80 - 1.50 mg/dL 07/18/2024 4:50 AM [facility] Sodium 136 135 - 145 mMol/L 07/18/2024 4:50 [facility] Potassium 4.3 3.5 - 5.0 mMol/L 07/18/2024 4:50 [facility] Chloride 101 98 - 107 mMol/L 07/18/2024 4:50 AM [facility] Carbon Dioxide 23 22 - 31 mMol/L 07/18/2024 4:50 [facility] Anion Gap 12 5 - 15 mMol/L 07/18/2024 4:50 AM [facility] Calcium 9.2 8.5 - 10.5 mg/dL 07/18/2024 4:50 [facility] Est Glomerular Filtration Rate - Male 122 mL/min/1. 73 m?? 07/18/2024 4:50 AM EDT [facility] Comment: This patient's estimated [...] 3:33 AM EDT 07/18/2024 4:21 AM EDT Thony Garcia MD CHEMISTRY ORDERABLES Performing Organization Address City/State/[facility] Co de Phone Number [facility] [place] [address] * (ABNORMAL) CBC (with Diff) (07/18/2024 3:33 AM EDT) White Blood Cell 11.56(H) 4.00 - 9.50 x10(3)/mc L 07/18/2024 4:26 AM EDT [facility] Red Blood Cell 4.55(L) 4.58 - 5.54 x10(6)/mc L 07/18/2024 4:26 AM EDT [facility] Hemoglobin 13.4(L) 13.7 - 16.5 g/dL 07/18/2024 4:26 [facility] Hematocrit 40.2(L) 40.5 - 48.5 % 07/18/2024 4:26 AM EDT [facility] Mean Cell Volume 88.4 82.9 - 93.1 fL 07/18/2024 4:26 [facility] Mean Cell Hemoglobin 29.5 27.5 - 32.1 pg 07/18/2024 4:26 AM [facility] Mean Cell Hemoglobin Concentration 33.3 32.0 - 35.7 g/dL 07/18/2024 4:26 AM [facility] Platelet 392(H) 145 - 357 x10(3)/mc L 07/18/2024 4:26 AM [facility] Mean Platelet Volume 10.2 7.6 - 12.9 fL 07/18/2024 4:26 AM [facility] RDW Standard Deviation 42.0 36.0 - 45.0 fL 07/18/2024 4:26 AM [facility] RDW coefficient of variation 13.1 11.4 - 13.8 % 07/18/2024 4:26 AM [facility] NRBC% auto 0.0 % 07/18/2024 4:26 AM [facility] NRBC Absolute 0.00 0.00 - 0.00 x10(3)/mc L 07/18/2024 4:26 AM [facility] Neutrophil % 68.4 % 07/18/2024 4:26 AM [facility] Neutrophil Absolute (ANC) - Automated 7.91(H) 1.70 - 6.10 x10(3)/mc L 07/18/2024 4:26 AM [facility] Lymph % 21.3 % 07/18/2024 4:26 AM [facility] Lymph Absolute 2.46 0.90 - 3.20 x10(3)/mc L 07/18/2024 4:26 AM [facility] Monocyte % 7.2 % 07/18/2024 4:26 AM [facility] Monocyte Absolute 0.83 0.30 - 0.90 x10(3)/mc L 07/18/2024 4:26 AM [facility] Eos % 1.7 % 07/18/2024 4:26 AM [facility] Eos Absolute 0.20 0.00 - 0.40 x10(3)/mc L 07/18/2024 4:26 AM EDT [facility] Basophil % 0.8 % 07/18/2024 4:26 AM EDT [facility] Baso Absolute 0.09 0.00 - 0.10 x10(3)/mc L 07/18/2024 4:26 AM EDT [facility] Immature Gran % 0.6 % 4:26 AM EDT [facility] Immature Gran Absolute 0.07(H) 0.00 - 0.04 x10(3)/mc L 07/18/2024 4:26 AM EDT [facility] Blood VENOUS BLOOD SPECIMEN / Unknown IP Care Team Draw / Unknown 07/18/2024 3:33 AM EDT 07/18/2024 4:21 AM EDT Thony Garcia MD HEMATOLOGY ORDERABLE S [facility] [place] [address] * Phosphorus (07/18/2024 3:33 AM EDT) Phosphorus 3.7 2.5 - 4.5 mg/dL 07/18/2024 4:50 AM EDT [facility] Blood VENOUS BLOOD SPECIMEN / Unknown IP Care Team Draw / Unknown 07/18/2024 3:33 AM EDT 07/18/2024 4:21 AM EDT Thony Garcia MD CHEMISTRY ORDERABLES [facility] [place] [address] * Magnesium (07/18/2024 3:33 AM EDT) Magnesium 0.88 0.69 - 1.07 mMol/L 07/18/2024 4:50 AM EDT [facility] Blood VENOUS BLOOD SPECIMEN / Unknown IP Care Team Draw / Unknown 07/18/2024 3:33 AM EDT 07/18/2024 4:21 AM EDT Thony Garcia MD CHEMISTRY ORDERABLES Performing Organization Address [facility]/ZIP Co de Phone Number [facility] [place] [address] * LDL Cholesterol, Direct (07/18/2024 3:33 AM EDT) LDL Cholesterol, Direct 65 mg/dL 07/18/2024 4:50 AM EDT [facility] Comment: Desirable: <100 mg/dL Above Desirable: [...] 3:33 AM EDT 07/18/2024 4:21 AM EDT Thony Garcia MD CHEMISTRY ORDERABLES Performing Organization Address City/[facility]/ZIP Co de Phone Number [facility] [place] [address] * HDL/Cholesterol Profile (07/18/2024 3:33 AM EDT) Cholesterol, Total 114 mg/dL 07/18/2024 4:50 AM EDT [facility] Comment: Desirable: < 200 mg/dL Borderline High: 200 - 239 mg/dL High: > or = 240 mg/dL HDL Cholesterol 38 mg/dL 4:50 AM EDT [facility] Comment:Males: High Risk: <4 0 mg/dL Non-HDL Cholesterol 76 mg/dL 07/18/2024 4:50 AM EDT [facility] Comment: Desirable: <130 mg/dL Above Desirable: 130-159 mg/dL Borderline High: 160-189 mg/dL High: 190-219 mg/dL Very High: > or = 220 mg/dL Blood VENOUS BLOOD SPECIMEN / Unknown IP Care Team Draw / Unknown 07/18/2024 3:33 AM EDT 07/18/2024 4:21 AM EDT [facility] - 07/18/2024 4:50 AM EDT It [...] lower. ?? ACC/AHA Guidelines (most recently Johann et al. JAC 08/11/22): * For individuals with atherosclerotic cardiovascular [...] infarction, ischemic stroke, symptomatic peripheral artery disease) Thony Garcia MD CHEMISTRY ORDERABLES Performing Organization Address [facility] Co de Phone Number [facility] [place] [address] * (ABNORMAL) POC, GLUCOSE (07/18/2024 3:21 AM EDT) Glucometer, POC 200(H) 65 - 199 mg/dL 07/18/2024 3:22 AM EDT [facility] Comment:Supplemental ranges: <140 mg/dL before meals <180 mg/dL all other times of the day. Blood CAPILLARY BLOOD / Unknown 07/18/2024 3:21 AM EDT 07/18/2024 3:22 AM EDT Thony Garcia MD POINT OF CARE TEST O RDERABLES Performing Organization Address [facility] Co de Phone Number [facility] [place] [address] * (ABNORMAL) POC, GLUCOSE (07/18/2024 12:44 AM EDT) Glucometer, POC 216(H) 65 - 199 mg/dL 07/18/2024 12:44 AM EDT [facility] Comment:Supplemental ranges: <140 mg/dL before meals <180 mg/dL all other times of the day. Blood CAPILLARY BLOOD / Unknown 07/18/2024 12:44 AM EDT 07/18/2024 12:44 AM EDT Thony Garcia MD POINT OF CARE TEST O RDERABLES Performing Organization Address City/[facility]/ZIP Co de Phone Number [facility] [place] [address] * (ABNORMAL) POC, GLUCOSE (07/17/2024 9:02 PM EDT) Glucometer, POC 294(H) 65 - 199 mg/dL 07/17/2024 9:02 PM EDT [facility] Comment:Supplemental ranges: <140 mg/dL before meals <180 mg/dL all other times of the day. Blood CAPILLARY BLOOD / Unknown 07/17/2024 9:02 PM EDT 07/17/2024 9:03 PM EDT Thony Garcia MD POINT OF CARE TEST O RDERAHERNANDEZ Performing Organization Address [facility]/ZIP Co de Phone Number [facility] [place] [address] * (ABNORMAL) POC, GLUCOSE (07/17/2024 4:07 PM EDT) Glucometer, POC 219(H) 65 - 199 mg/dL 07/17/2024 4:07 PM EDT [facility] Comment:Supplemental ranges: <140 mg/dL before meals <180 mg/dL all other times of the day. Blood CAPILLARY BLOOD / Unknown 07/17/2024 4:07 PM EDT 07/17/2024 4:07 PM EDT Thony Garcia MD POINT OF CARE TEST O RDERAHERNANDEZ Performing Organization Address City/[facility]/ZIP Co de Phone Number [facility] [place] [address] * (ABNORMAL) POC, GLUCOSE (07/17/2024 11:31 AM EDT) Glucometer, POC 255(H) 65 - 199 mg/dL 07/17/2024 11:32 AM EDT [facility] Comment:Supplemental ranges: <140 mg/dL before meals <180 mg/dL all other times of the day. Blood CAPILLARY BLOOD / Unknown 07/17/2024 11:31 AM EDT 07/17/2024 11:32 AM EDT Thony Garcia MD POINT OF CARE TEST O RDERAHERNANDEZ Performing Organization Address [facility] Co de Phone Number [facility] [place] [address] * POC, GLUCOSE (07/17/2024 7:38 AM EDT) Glucometer, POC 112 65 - 199 mg/dL 07/17/2024 7:38 AM EDT [facility] Comment:Supplemental ranges: <140 mg/dL before meals <180 mg/dL all other times of the day. Blood CAPILLARY BLOOD / Unknown 07/17/2024 7:38 AM EDT 07/17/2024 7:38 AM EDT Thony Garcia MD POINT OF CARE TEST O RDERAHERNANDEZ Performing Organization Address City/[facility] Co de Phone Number [facility] [place] [address] * ELEN, legs, multiple levels (07/17/2024 6:31 AM EDT) VB Text Report Department: Vascular Surgery Lab Patient: [id number] (ZACKGEOVANNA) CPT: 73422 Referring Physician: VIBHA TIERNEY ?? Indications: PAD [...] ? Dorsalis Pedis (Ankle) Artery ?83 ?0.55 ??[place]-Biphasic ? Posterior Tibial (Ankle) Artery ??87 ?0.57 [...] Tierney APRN VASCULAR ORDERABLE S [facility] * (ABNORMAL) POC, GLUCOSE (07/17/2024 4:12 AM EDT) [facility] Signature Glucometer, POC 205(H) 65 - 199 mg/dL 07/17/2024 4:12 AM EDT [facility] Comment:Supplemental ranges: <140 mg/dL before meals <180 mg/dL all other times of the day. Blood CAPILLARY BLOOD / Unknown 07/17/2024 4:12 AM EDT 07/17/2024 4:12 AM EDT Thony Garcia MD POINT OF CARE TEST O RDERABLES Performing Organization Address [facility] Co de Phone Number [facility] [place] [address] * Heparin (unfractionated) Level (07/17/2024 3:42 AM EDT) UF Heparin 0.42 IU/mL 07/17/2024 4:38 AM EDT [facility] Comment: Heparin (anti-Xa) levels should be [...] Unknown IP Care Team Draw / Unknown 07/17/2024 3:42 AM EDT 07/17/2024 4:15 AM EDT Thony Garcia MD HEMATOLOGY ORDERABLE S Performing Organization Address [facility] Co de Phone Number [facility] [place] [address] * Phosphorus (07/17/2024 3:42 AM EDT) Phosphorus 3.6 2.5 - 4.5 mg/dL 07/17/2024 4:47 AM EDT [facility] Blood VENOUS BLOOD SPECIMEN / Unknown IP Care Team Draw / Unknown 07/17/2024 3:42 AM EDT 07/17/2024 4:15 AM EDT Thony Garcia MD CHEMISTRY ORDERABLES [facility] [place] [address] * Magnesium (07/17/2024 3:42 AM EDT) Pathologist [facility] Magnesium 0.78 0.69 - 1.07 mMol/L 07/17/2024 4:47 AM EDT [facility] Blood VENOUS BLOOD SPECIMEN / Unknown IP Care Team Draw / Unknown 07/17/2024 3:42 AM EDT 07/17/2024 4:15 AM EDT Thony Garcia MD CHEMISTRY ORDERABLES Performing Organization Address [facility]/ZIP Co de Phone Number [facility] [place] [address] * (ABNORMAL) Basic Metabolic Panel (07/17/2024 3:42 AM EDT) [facility] Glucose 225(H) 65 - 199 mg/dL 07/17/2024 4:47 AM EDT [facility] Comment:Glucose Concentratio n >=200 mg/dL plus symptoms is consistent with Diabetes Mellitus. Blood Urea Nitrogen 9(L) 10 - 20 mg/dL 07/17/2024 4:47 AM EDT [facility] Creatinine 0.49(L) 0.80 - 1.50 mg/dL 07/17/2024 4:47 AM EDT [facility] Sodium 135 135 - 145 mMol/L 07/17/2024 4:47 AM EDT [facility] Potassium 3.7 3.5 - 5.0 mMol/L 07/17/2024 4:47 AM EDT [facility] Chloride 103 98 - 107 mMol/L 07/17/2024 4:47 AM [facility] Carbon Dioxide 21(L) 22 - 31 mMol/L 07/17/2024 4:47 AM EDT [facility] Anion Gap 11 5 - 15 mMol/L 07/17/2024 4:47 AM EDT [facility] Calcium 9.1 8.5 - 10.5 mg/dL 07/17/2024 4:47 AM EDT [facility] Est Glomerular Filtration Rate - Male 125 mL/min/1. 73 m?? 07/17/2024 4:47 AM EDT [facility] Comment: This patient's estimated [...] Unknown IP Care Team Draw / Unknown 07/17/2024 3:42 AM EDT 07/17/2024 4:15 AM EDT Thony Garcia MD CHEMISTRY ORDERABLES [facility] [place] [address] * (ABNORMAL) CBC (with Diff) (07/17/2024 3:42 AM EDT) White Blood Cell 11.02(H) 4.00 - 9.50 x10(3)/mc L 07/17/2024 4:21 AM EDT [facility] Red Blood Cell 4.43(L) 4.58 - 5.54 x10(6)/mc L 07/17/2024 4:21 AM EDT [facility] Hemoglobin 13.1(L) 13.7 - 16.5 g/dL 07/17/2024 4:21 AM EDT [facility] Hematocrit 38.8(L) 40.5 - 48.5 % 07/17/2024 4:21 AM EDT [facility] Mean Cell Volume 87.6 82.9 - 93.1 fL 07/17/2024 4:21 AM [facility] Mean Cell Hemoglobin 29.6 27.5 - 32.1 pg 07/17/2024 4:21 AM [facility] Mean Cell Hemoglobin Concentration 33.8 32.0 - 35.7 g/dL 07/17/2024 4:21 AM [facility] Platelet 367(H) 145 - 357 x10(3)/mc L 07/17/2024 4:21 AM [facility] Mean Platelet Volume 9.7 7.6 - 12.9 fL 07/17/2024 4:21 AM [facility] RDW Standard Deviation 41.5 36.0 - 45.0 fL 07/17/2024 4:21 AM [facility] RDW coefficient of variation 13.0 11.4 - 13.8 % 07/17/2024 4:21 AM [facility] NRBC% auto 0.0 % 07/17/2024 4:21 AM [facility] NRBC Absolute 0.00 0.00 - 0.00 x10(3)/mc L 07/17/2024 4:21 AM [facility] Neutrophil % 70.4 % 07/17/2024 4:21 AM [facility] Neutrophil Absolute (ANC) - Automated 7.76(H) 1.70 - 6.10 x10(3)/mc L 07/17/2024 4:21 AM [facility] Lymph % 20.9 % 07/17/2024 4:21 AM [facility] Lymph Absolute 2.30 0.90 - 3.20 x10(3)/mc L 07/17/2024 4:21 AM [facility] Monocyte % 6.0 % 07/17/2024 4:21 AM [facility] Monocyte Absolute 0.66 0.30 - 0.90 x10(3)/mc L 07/17/2024 4:21 AM EDT [facility] Eos % 1.6 % 07/17/2024 4:21 AM EDT [facility] Eos Absolute 0.18 0.00 - 0.40 x10(3)/mc L 07/17/2024 4:21 AM EDT [facility] Basophil % 0.5 % 07/17/2024 4:21 AM EDT [facility] Baso Absolute 0.05 0.00 - 0.10 x10(3)/mc L 07/17/2024 4:21 AM EDT [facility] Immature Gran % 0.6 % 4:21 AM EDT [facility] Immature Gran Absolute 0.07(H) 0.00 - 0.04 x10(3)/mc L 07/17/2024 4:21 AM EDT [facility] Blood VENOUS BLOOD SPECIMEN / Unknown IP Care Team Draw / Unknown 07/17/2024 3:42 AM EDT 07/17/2024 4:15 AM EDT Thony Garcia MD HEMATOLOGY ORDERABLE S Performing Organization Address City/[facility]/ZIP Co de Phone Number [facility] [place] [address] * (ABNORMAL) POC, GLUCOSE (07/17/2024 2:25 AM EDT) Glucometer, POC 262(H) 65 - 199 mg/dL 07/17/2024 2:25 AM EDT [facility] Comment:Supplemental ranges: <140 mg/dL before meals <180 mg/dL all other times of the day. Blood CAPILLARY BLOOD / Unknown 07/17/2024 2:25 AM EDT 07/17/2024 2:25 AM EDT Thony Garcia MD POINT OF CARE TEST O RDERABLES Performing Organization Address City/[facility]/ZIP Co de Phone Number [facility] [place] [address] * (ABNORMAL) POC, GLUCOSE (07/17/2024 12:19 AM EDT) Glucometer, POC 262(H) 65 - 199 mg/dL 07/17/2024 12:19 AM EDT [facility] Comment:Supplemental ranges: <140 mg/dL before meals <180 mg/dL all other times of the day. Blood CAPILLARY BLOOD / Unknown 07/17/2024 12:19 AM EDT 07/17/2024 12:20 AM EDT Thony Garcia MD POINT OF CARE TEST O GILDA Performing Organization Address City/[facility]/ZIP Co de Phone Number [facility] [place] [address] * (ABNORMAL) POC, GLUCOSE (07/16/2024 8:22 PM EDT) Glucometer, POC 217(H) 65 - 199 mg/dL 07/16/2024 8:23 PM EDT [facility] Comment:Supplemental ranges: <140 mg/dL before meals <180 mg/dL all other times of the day. Blood CAPILLARY BLOOD / Unknown 07/16/2024 8:22 PM EDT 07/16/2024 8:23 PM EDT Thony Garcia MD POINT OF CARE TEST O GILDA [facility] [place] [address] * POC, GLUCOSE (07/16/2024 3:47 PM EDT) Glucometer, POC 184 65 - 199 mg/dL 07/16/2024 3:47 PM EDT [facility] Comment:Supplemental ranges: <140 mg/dL before meals <180 mg/dL all other times of the day. Blood CAPILLARY BLOOD / Unknown 07/16/2024 3:47 PM EDT 07/16/2024 3:48 PM EDT Thony Garcia MD POINT OF CARE TEST O RDERABLES Performing Organization Address [facility] Co de Phone Number [facility] [place] [address] * Heparin (unfractionated) Level (07/16/2024 3:39 PM EDT) UF Heparin 0.47 IU/mL 07/16/2024 4:24 PM EDT [facility] Comment: Heparin (anti-Xa) levels should be [...] 3:39 PM EDT 07/16/2024 3:47 PM EDT Thony Garcia MD HEMATOLOGY ORDERABLE S Performing Organization Address [facility] Co de Phone Number [facility] [place] [address] * Potassium (07/16/2024 3:39 PM EDT) Potassium 3.9 3.5 - 5.0 mMol/L 07/16/2024 4:15 PM EDT [facility] Blood VENOUS BLOOD SPECIMEN / Unknown IP Care Team Draw / Unknown 07/16/2024 3:39 PM EDT 07/16/2024 3:47 PM EDT Hermila White RESHMA CHEMISTRY ORDERABL ES [facility] [place] [address] * MRSA PCR Screen (07/16/2024 2:07 PM EDT) MRSA PCR Not Detected 07/17/2024 6:04 PM EDT [facility] Swab BOTH ANTERIOR NARES / Unknown Non Blood Collection / Unknown 07/16/2024 2:07 PM EDT 07/16/2024 2:13 PM EDT Narrative [facility] - 07/17/2024 6:04 PM EDT This test was performed using the Xpert MRSA NxG test kit and is run on the [employer] GeneXpert Dx System. This test is cleared by the U.S. Food and Drug Administration for clinical use and its performance characteristics have been verified by the Clinical [employer] [facility] at [facility]. This test was performed using the Xpert MRSA NxG test kit and is run on the [employer] GeneXpert Dx System. This test is cleared by the U.S. Food and Drug Administration for clinical use and its performance characteristics have been verified by the Clinical [employer] [facility] at [facility]. Hermila White RESHMA MOLECULAR ORDERABL ES Performing Organization Address City/[facility]/ZIP Co de Phone Number [facility] [place] [address] * POC, GLUCOSE (07/16/2024 1:33 PM EDT) Glucometer, POC 183 65 - 199 mg/dL 07/16/2024 1:33 PM EDT [facility] Comment:Supplemental ranges: <140 mg/dL before meals <180 mg/dL all other times of the day. Blood CAPILLARY BLOOD / Unknown 07/16/2024 1:33 PM EDT 07/16/2024 1:33 PM EDT Thony Garcia MD POINT OF CARE TEST O RDTYESHA [facility] [place] [address] * (ABNORMAL) POC, GLUCOSE (07/16/2024 11:41 AM EDT) Glucometer, POC 259(H) 65 - 199 mg/dL 07/16/2024 11:41 AM EDT [facility] Comment:Supplemental ranges: <140 mg/dL before meals <180 mg/dL all other times of the day. Blood CAPILLARY BLOOD / Unknown 07/16/2024 11:41 AM EDT 07/16/2024 11:41 AM EDT Thony Garcia MD POINT OF CARE TEST O GILDA Performing Organization Address City/[facility]/ZIP Co de Phone Number [facility] [place] [address] * Heparin (unfractionated) Level (07/16/2024 9:41 AM EDT) UF Heparin 0.60 IU/mL 07/16/2024 9:54 AM EDT [facility] Comment: Heparin (anti-Xa) levels should be [...] IP Care Team Draw / Unknown 07/16/2024 9:41 AM EDT 07/16/2024 9:45 AM EDT Thony Garcia MD HEMATOLOGY ORDERABLE S Performing Organization Address City/[facility]/ZIP Co de Phone Number [facility] [place] [address] * (ABNORMAL) POC, GLUCOSE (07/16/2024 7:10 AM EDT) Glucometer, POC 205(H) 65 - 199 mg/dL 07/16/2024 7:11 AM EDT [facility] Comment:Supplemental ranges: <140 mg/dL before meals <180 mg/dL all other times of the day. Blood CAPILLARY BLOOD / Unknown 07/16/2024 7:10 AM EDT 07/16/2024 7:11 AM EDT Thony Garcia MD POINT OF CARE TEST O RDERABLES Performing Organization Address [facility] Co de Phone Number [facility] [place] [address] * (ABNORMAL) Potassium (07/16/2024 4:15 AM EDT) Potassium 3.2(L) 3.5 - 5.0 mMol/L 07/16/2024 4:53 AM EDT [facility] Blood VENOUS BLOOD SPECIMEN / Unknown IP Care Team Draw / Unknown 07/16/2024 4:15 AM EDT 07/16/2024 4:23 AM EDT Thony Garcia MD CHEMISTRY ORDERABLES Performing Organization Address City/[facility]/ZIP Co de Phone Number [facility] [place] [address] * Phosphorus (07/16/2024 4:15 AM EDT) Phosphorus 3.7 2.5 - 4.5 mg/dL 07/16/2024 4:53 AM EDT [facility] Blood VENOUS BLOOD SPECIMEN / Unknown IP Care Team Draw / Unknown 07/16/2024 4:15 AM EDT 07/16/2024 4:23 AM EDT Thony Garcia MD CHEMISTRY ORDERABLES Performing Organization Address [facility] Co de Phone Number [facility] [place] [address] * POC, GLUCOSE (07/16/2024 4:14 AM EDT) Glucometer, POC 187 65 - 199 mg/dL 07/16/2024 4:17 AM EDT [facility] Comment:Supplemental ranges: <140 mg/dL before meals <180 mg/dL all other times of the day. Blood CAPILLARY BLOOD / Unknown 07/16/2024 4:14 AM EDT 07/16/2024 4:17 AM EDT Thony Garcia MD POINT OF CARE TEST O GILDA Performing Organization Address [facility] Co de Phone Number [facility] [place] [address] * (ABNORMAL) POC, GLUCOSE (07/16/2024 2:07 AM EDT) Glucometer, POC 254(H) 65 - 199 mg/dL 07/16/2024 2:08 AM EDT [facility] Comment:Supplemental ranges: <140 mg/dL before meals <180 mg/dL all other times of the day. Blood CAPILLARY BLOOD / Unknown 07/16/2024 2:07 AM EDT 07/16/2024 2:08 AM EDT Thony Garcia MD POINT OF CARE TEST O GILDA Performing Organization Address [facility] Co de Phone Number [facility] [place] [address] * Heparin (unfractionated) Level (07/16/2024 2:07 AM EDT) UF Heparin 0.72 IU/mL 07/16/2024 2:36 AM EDT [facility] Comment: Heparin (anti-Xa) levels should be [...] IP Care Team Draw / Unknown 07/16/2024 2:07 AM EDT 07/16/2024 2:14 AM EDT Thony Garcia MD HEMATOLOGY ORDERABLE S Performing Organization Address [facility] Co de Phone Number [facility] [place] [address] * Magnesium (07/16/2024 2:07 AM EDT) Magnesium 0.83 0.69 - 1.07 mMol/L 07/16/2024 2:47 AM EDT [facility] Blood VENOUS BLOOD SPECIMEN / Unknown IP Care Team Draw / Unknown 07/16/2024 2:07 AM EDT 07/16/2024 2:14 AM EDT Thony Garcia MD CHEMISTRY ORDERABLES Performing Organization Address [facility] Co de Phone Number [facility] [place] [address] * (ABNORMAL) Basic Metabolic Panel (07/16/2024 2:07 AM EDT) Glucose 248(H) 65 - 199 mg/dL 07/16/2024 2:57 AM [facility] Comment:Glucose Concentratio n >=200 mg/dL plus symptoms is consistent with Diabetes Mellitus. Blood Urea Nitrogen 8(L) 10 - 20 mg/dL 07/16/2024 2:57 AM [facility] Creatinine 0.42(L) 0.80 - 1.50 mg/dL 07/16/2024 2:57 AM [facility] Sodium 135 135 - 145 mMol/L 07/16/2024 2:57 AM [facility] Potassium 07/16/2024 2:57 AM [facility] Comment:Unable to report due to hemolysis Chloride 101 98 - 107 mMol/L 07/16/2024 2:57 AM [facility] Carbon Dioxide 22 22 - 31 mMol/L 07/16/2024 2:57 AM [facility] Anion Gap 12 5 - 15 mMol/L 07/16/2024 2:57 AM [facility] Calcium 9.0 8.5 - 10.5 mg/dL 07/16/2024 2:57 AM [facility] Est Glomerular Filtration Rate - Male 131 mL/min/1. 73 m?? 07/16/2024 2:57 AM [facility] Comment: This patient's estimated GFR [...] IP Care Team Draw / Unknown 07/16/2024 2:07 AM EDT 07/16/2024 2:14 AM EDT Thony Garcia MD CHEMISTRY ORDERABLES [facility] [place] [address] * (ABNORMAL) CBC (with Diff) (07/16/2024 2:07 AM EDT) White Blood Cell 11.08(H) 4.00 - 9.50 x10(3)/mc L 07/16/2024 2:23 AM EDT [facility] Red Blood Cell 4.29(L) 4.58 - 5.54 x10(6)/mc L 07/16/2024 2:23 AM EDT [facility] Hemoglobin 12.7(L) 13.7 - 16.5 g/dL 07/16/2024 2:23 AM EDT [facility] Hematocrit 36.6(L) 40.5 - 48.5 % 07/16/2024 2:23 AM EDT [facility] Mean Cell Volume 85.3 82.9 - 93.1 fL 07/16/2024 2:23 AM EDT [facility] Mean Cell Hemoglobin 29.6 27.5 - 32.1 pg 07/16/2024 2:23 AM EDT [facility] Mean Cell Hemoglobin Concentration 34.7 32.0 - 35.7 g/dL 07/16/2024 2:23 AM EDT [facility] Platelet 363(H) 145 - 357 x10(3)/mc L 07/16/2024 2:23 AM EDT [facility] Mean Platelet Volume 10.3 7.6 - 12.9 fL 07/16/2024 2:23 AM EDT [facility] RDW Standard Deviation 39.2 36.0 - 45.0 fL 07/16/2024 2:23 AM EDT [facility] RDW coefficient of variation 12.7 11.4 - 13.8 % 07/16/2024 2:23 AM EDT [facility] NRBC% auto 0.0 % 07/16/2024 2:23 AM [facility] NRBC Absolute 0.00 0.00 - 0.00 x10(3)/mc L 07/16/2024 2:23 AM [facility] Neutrophil % 66.2 % 07/16/2024 2:23 AM [facility] Neutrophil Absolute (ANC) - Automated 7.33(H) 1.70 - 6.10 x10(3)/mc L 07/16/2024 2:23 AM [facility] Lymph % 24.2 % 07/16/2024 2:23 AM [facility] Lymph Absolute 2.68 0.90 - 3.20 x10(3)/mc L 07/16/2024 2:23 AM [facility] Monocyte % 6.9 % 07/16/2024 2:23 AM [facility] Monocyte Absolute 0.77 0.30 - 0.90 x10(3)/mc L 07/16/2024 2:23 AM [facility] Eos % 1.6 % 07/16/2024 2:23 AM [facility] Eos Absolute 0.18 0.00 - 0.40 x10(3)/mc L 07/16/2024 2:23 AM [facility] Basophil % 0.6 % 07/16/2024 2:23 AM [facility] Baso Absolute 0.07 0.00 - 0.10 x10(3)/mc L 07/16/2024 2:23 AM [facility] Immature Gran % 0.5 % 2:23 AM [facility] Immature Gran Absolute 0.05(H) 0.00 - 0.04 x10(3)/mc L 07/16/2024 2:23 AM [facility] Blood VENOUS BLOOD SPECIMEN / Unknown IP Care Team Draw / Unknown 07/16/2024 2:07 AM EDT 07/16/2024 2:14 AM EDT Thony Garcia MD HEMATOLOGY ORDERABLE S Performing Organization Address [facility] Co de Phone Number [facility] [place] [address] * (ABNORMAL) POC, GLUCOSE (07/16/2024 12:04 AM EDT) Glucometer, POC 324(H) 65 - 199 mg/dL 07/16/2024 12:05 AM EDT [facility] Comment:Supplemental ranges: <140 mg/dL before meals <180 mg/dL all other times of the day. Blood CAPILLARY BLOOD / Unknown 07/16/2024 12:04 AM EDT 07/16/2024 12:05 AM EDT Thony Garcia MD POINT OF CARE TEST O RDERAHERNANDEZ Performing Organization Address [facility] Co de Phone Number [facility] [place] [address] * (ABNORMAL) POC, GLUCOSE (07/15/2024 8:36 PM EDT) Glucometer, POC 274(H) 65 - 199 mg/dL 07/15/2024 8:36 PM EDT [facility] Comment:Supplemental ranges: <140 mg/dL before meals <180 mg/dL all other times of the day. Blood CAPILLARY BLOOD / Unknown 07/15/2024 8:36 PM EDT 07/15/2024 8:36 PM EDT Thony Garcia MD POINT OF CARE TEST O GILDA [facility] [place] [address] * Heparin (unfractionated) Level (07/15/2024 8:21 PM EDT) UF Heparin 0.55 IU/mL 07/15/2024 8:42 PM EDT [facility] Comment: Heparin (anti-Xa) levels should be [...] IP Care Team Draw / Unknown 07/15/2024 8:21 PM EDT 07/15/2024 8:26 PM EDT Thony Garcia MD HEMATOLOGY ORDERABLE S Performing Organization Address City/[facility]/ZIP Co de Phone Number [facility] [place] [address] * (ABNORMAL) POC, GLUCOSE (07/15/2024 4:41 PM EDT) [facility] Glucometer, POC 275(H) 65 - 199 mg/dL 07/15/2024 4:42 PM EDT [facility] Comment:Supplemental ranges: <140 mg/dL before meals <180 mg/dL all other times of the day. Blood CAPILLARY BLOOD / Unknown 07/15/2024 4:41 PM EDT 07/15/2024 4:42 PM EDT Thony Garcia MD POINT OF CARE TEST O RDERABLES Performing Organization Address [facility]/ZIP Co de Phone Number [facility] [place] [address] * (ABNORMAL) Vancomycin, trough (07/15/2024 2:19 PM EDT) Pathologist [facility] Vancomycin, Trough 9.7(L) 10.0 - 20.0 mg/L 07/15/2024 3:28 PM EDT [facility] Comment: Varies according to infection source. Blood VENOUS BLOOD SPECIMEN / Unknown IP Care Team Draw / Unknown 07/15/2024 2:19 PM EDT 07/15/2024 3:00 PM EDT Thony Garcia MD CHEMISTRY ORDERABLES Performing Organization Address [facility] Co de Phone Number [facility] [place] [address] * (ABNORMAL) POC, GLUCOSE (07/15/2024 1:16 PM EDT) Glucometer, POC 223(H) 65 - 199 mg/dL 07/15/2024 1:17 PM EDT [facility] Comment:Supplemental ranges: <140 mg/dL before meals <180 mg/dL all other times of the day. Blood CAPILLARY BLOOD / Unknown 07/15/2024 1:16 PM EDT 07/15/2024 1:18 PM EDT Thony Garcia MD POINT OF CARE TEST O RDERABLES Performing Organization Address [facility] Phone Number [facility] [place] [address] * POC, GLUCOSE (07/15/2024 8:34 AM EDT) Glucometer, POC 133 65 - 199 mg/dL 07/15/2024 8:35 AM EDT [facility] Comment:Supplemental ranges: <140 mg/dL before meals <180 mg/dL all other times of the day. Blood CAPILLARY BLOOD / Unknown 07/15/2024 8:34 AM EDT 07/15/2024 8:35 AM EDT Thony Garcia MD POINT OF CARE TEST O RDTYESHA Performing Organization Address City/[facility] Co de Phone Number [facility] [place] [address] * (ABNORMAL) POC, GLUCOSE (07/15/2024 4:44 AM EDT) Glucometer, POC 224(H) 65 - 199 mg/dL 07/15/2024 4:44 AM EDT [facility] Comment:Supplemental ranges: <140 mg/dL before meals <180 mg/dL all other times of the day. Blood CAPILLARY BLOOD / Unknown 07/15/2024 4:44 AM EDT 07/15/2024 4:44 AM EDT Thony Garcia MD POINT OF CARE TEST O GILDA [facility] [place] [address] * (ABNORMAL) POC, GLUCOSE (07/15/2024 2:48 AM EDT) Glucometer, POC 281(H) 65 - 199 mg/dL 07/15/2024 2:48 AM EDT [facility] Comment:Supplemental ranges: <140 mg/dL before meals <180 mg/dL all other times of the day. Blood CAPILLARY BLOOD / Unknown 07/15/2024 2:48 AM EDT 07/15/2024 2:48 AM EDT Thony Garcia MD POINT OF CARE TEST O GILDA [facility] [place] [address] * (ABNORMAL) Basic Metabolic Panel (07/15/2024 12:45 AM EDT) Glucose 309(H) 65 - 199 mg/dL 07/15/2024 1:28 AM EDT [facility] Comment:Glucose Concentratio n >=200 mg/dL plus symptoms is consistent with Diabetes Mellitus. Blood Urea Nitrogen 8(L) 10 - 20 mg/dL 07/15/2024 [facility] Creatinine 0.80 0.80 - 1.50 mg/dL 07/15/2024 1:28 AM [facility] Sodium 132(L) 135 - 145 mMol/L 07/15/2024 1:28 AM [facility] Potassium 3.7 3.5 - 5.0 mMol/L 07/15/2024 1:28 AM [facility] Chloride 99 98 - 107 mMol/L 07/15/2024 1:28 AM [facility] Carbon Dioxide 20(L) 22 - 31 mMol/L 07/15/2024 1:28 AM [facility] Anion Gap 13 5 - 15 mMol/L 07/15/2024 1:28 AM [facility] Calcium 8.5 8.5 - 10.5 mg/dL 07/15/2024 1:28 AM [facility] Est Glomerular Filtration Rate - Male 108 mL/min/1. 73 m?? 07/15/2024 1:28 AM [facility] Comment: This patient's estimated GFR [...] IP Care Team Draw / Unknown 07/15/2024 12:45 AM EDT 07/15/2024 1:00 AM EDT Thony Garcia MD CHEMISTRY ORDERABLES [facility] [place] [address] * (ABNORMAL) CBC (with Diff) (07/15/2024 12:45 AM EDT) White Blood Cell 11.70(H) 4.00 - 9.50 x10(3)/mc L 07/15/2024 1:05 AM [facility] Red Blood Cell 4.13(L) 4.58 - 5.54 x10(6)/mc L 07/15/2024 1:05 AM [facility] Hemoglobin 12.1(L) 13.7 - 16.5 g/dL 07/15/2024 1:05 AM [facility] Hematocrit 35.7(L) 40.5 - 48.5 % 07/15/2024 1:05 AM [facility] Mean Cell Volume 86.4 82.9 - 93.1 fL 07/15/2024 1:05 AM [facility] Mean Cell Hemoglobin 29.3 27.5 - 32.1 pg 07/15/2024 1:05 AM [facility] Mean Cell Hemoglobin Concentration 33.9 32.0 - 35.7 g/dL 07/15/2024 1:05 AM [facility] Platelet 322 145 - 357 x10(3)/mc L 07/15/2024 1:05 AM [facility] Mean Platelet Volume 9.9 7.6 - 12.9 fL 07/15/2024 1:05 AM [facility] RDW Standard Deviation 40.2 36.0 - 45.0 fL 07/15/2024 1:05 AM [facility] RDW coefficient of variation 12.9 11.4 - 13.8 % 07/15/2024 1:05 AM [facility] NRBC% auto 0.0 % 07/15/2024 1:05 AM [facility] NRBC Absolute 0.00 0.00 - 0.00 x10(3)/mc L 07/15/2024 1:05 AM [facility] Neutrophil % 74.9 % 07/15/2024 1:05 AM EDT [facility] Neutrophil Absolute (ANC) - Automated 8.75(H) 1.70 - 6.10 x10(3)/mc L 07/15/2024 1:05 AM EDT [facility] Lymph % 16.3 % 07/15/2024 1:05 AM EDT [facility] Lymph Absolute 1.91 0.90 - 3.20 x10(3)/mc L 07/15/2024 1:05 AM EDT [facility] Monocyte % 6.6 % 07/15/2024 1:05 AM EDT [facility] Monocyte Absolute 0.77 0.30 - 0.90 x10(3)/mc L 07/15/2024 1:05 AM EDT [facility] Eos % 1.5 % 07/15/2024 1:05 AM EDT [facility] Eos Absolute 0.18 0.00 - 0.40 x10(3)/mc L 07/15/2024 1:05 AM EDT [facility] Basophil % 0.3 % 07/15/2024 1:05 AM EDT [facility] Baso Absolute 0.04 0.00 - 0.10 x10(3)/mc L 07/15/2024 1:05 AM EDT [facility] Immature Gran % 0.4 % 1:05 AM EDT [facility] Immature Gran Absolute 0.05(H) 0.00 - 0.04 x10(3)/mc L 07/15/2024 1:05 AM EDT [facility] Blood VENOUS BLOOD SPECIMEN / Unknown IP Care Team Draw / Unknown 07/15/2024 12:45 AM EDT 07/15/2024 1:00 AM EDT Thony Garcia MD HEMATOLOGY ORDERABLE S [facility] [place] [address] * (ABNORMAL) POC, GLUCOSE (07/15/2024 12:29 AM EDT) Glucometer, POC 394(H) 65 - 199 mg/dL 07/15/2024 12:30 AM EDT [facility] Comment:Supplemental ranges: <140 mg/dL before meals <180 mg/dL all other times of the day. Blood CAPILLARY BLOOD / Unknown 07/15/2024 12:29 AM EDT 07/15/2024 12:30 AM EDT Thony Garcia MD POINT OF CARE TEST O RDERABLES [facility] [place] [address] * CT Angiogram Aortic Lower Extremity Runoff (07/14/2024 11:57 PM EDT) WORKSTATION ID [id number] DH RAD Anatomical Region Laterality Modality Abdomen Computed [...] who have questions please contact the health hospice spiritual care coordinator that requested your imaging first. ? Narrative [...] 2.6 cm vessel length at and just [id number], similar to prior. Anterior tibial artery: No [...] the intravenous administration of contrast. 149 cc [id number]. Maximum intensity projection (MIP) were reformatted. 3-D [...] 2.6 cm vessel length at and just [id number], similar toprior. Anterior tibial artery: No stenosis. [...] patients who have questions please contactthe health hospice spiritual care coordinator that requested your imaging first. Thony Garcia MD IMG CT ORDERABLES * XR Foot Min 3 views Left (Generic) (07/14/2024 9:11 PM EDT) WORKSTATION ID [id number] RAD Anatomical Region Laterality Modality Foot Left [...] who have questions please contact the health hospice spiritual care coordinator that requested your imaging first. ? Narrative [...] patients who have questions please contactthe health hospice spiritual care coordinator that requested your imaging first. Arthur Patel DO IMG DX ORDERABLES * Lactate Whole Blood POC (07/14/2024 7:41 PM EDT) Lactate, Whole Blood 1.1 0.5 - 2.2 mmol/L 07/14/2024 7:42 PM EDT [facility] Blood ARTERIAL BLOOD / Unknown 07/14/2024 7:41 PM EDT 07/14/2024 7:42 PM EDT Unknown POINT OF CARE TEST O RDERABLES [facility] [place] [address] * (ABNORMAL) Basic Metabolic Panel (07/14/2024 7:39 PM EDT) Glucose 341(H) 65 - 199 mg/dL 07/14/2024 8:13 PM EDT [facility] Comment:Glucose Concentratio n >=200 mg/dL plus symptoms is consistent with Diabetes Mellitus. Blood Urea Nitrogen 6(L) 10 - 20 mg/dL 07/14/2024 8:13 PM EDT [facility] Creatinine 0.53(L) 0.80 - 1.50 mg/dL 07/14/2024 8:13 PM EDT [facility] Sodium 137 135 - 145 mMol/L 07/14/2024 8:13 PM EDT [facility] Potassium 3.7 3.5 - 5.0 mMol/L 07/14/2024 8:13 PM EDT [facility] Chloride 101 98 - 107 mMol/L 07/14/2024 8:13 PM EDT [facility] Carbon Dioxide 23 22 - 31 mMol/L 07/14/2024 8:13 PM EDT [facility] Anion Gap 13 5 - 15 mMol/L 07/14/2024 8:13 PM EDT [facility] Calcium 8.6 8.5 - 10.5 mg/dL 07/14/2024 8:13 PM EDT [facility] Est Glomerular Filtration Rate - Male 122 mL/min/1. 73 m?? 07/14/2024 8:13 PM EDT [facility] Comment: This patient's estimated [...] Foundation Blood VENOUS BLOOD SPECIMEN / Unknown Venipuncture / Unknown 07/14/2024 7:39 PM EDT 07/14/2024 7:46 PM EDT Arthur Patel DO CHEMISTRY ORDERABLES Performing Organization Address City/State/[facility] Co de Phone Number [facility] [place] [address] * (ABNORMAL) CBC (with Diff) (07/14/2024 7:39 PM EDT) White Blood Cell 8.69 4.00 - 9.50 x10(3)/mc L 07/14/2024 7:50 PM EDT [facility] Red Blood Cell 4.01(L) 4.58 - 5.54 x10(6)/mc L 07/14/2024 7:50 PM EDT [facility] Hemoglobin 11.7(L) 13.7 - 16.5 g/dL 07/14/2024 7:50 PM EDT [facility] Hematocrit 34.5(L) 40.5 - 48.5 % 07/14/2024 7:50 PM EDT [facility] Mean Cell Volume 86.0 82.9 - 93.1 fL 07/14/2024 7:50 PM EDT [facility] Mean Cell Hemoglobin 29.2 27.5 - 32.1 pg 07/14/2024 7:50 PM EDT [facility] Mean Cell Hemoglobin Concentration 33.9 32.0 - 35.7 g/dL 07/14/2024 7:50 PM [facility] Platelet 313 145 - 357 x10(3)/mc L 07/14/2024 7:50 PM [facility] Mean Platelet Volume 9.5 7.6 - 12.9 fL 07/14/2024 7:50 PM [facility] RDW Standard Deviation 39.5 36.0 - 45.0 fL 07/14/2024 7:50 PM [facility] RDW coefficient of variation 12.6 11.4 - 13.8 % 07/14/2024 7:50 PM [facility] NRBC% auto 0.0 % 07/14/2024 7:50 PM [facility] NRBC Absolute 0.00 0.00 - 0.00 x10(3)/mc L 07/14/2024 7:50 PM [facility] Neutrophil % 67.3 % 07/14/2024 7:50 PM [facility] Neutrophil Absolute (ANC) - Automated 5.85 1.70 - 6.10 x10(3)/mc L 07/14/2024 7:50 PM [facility] Lymph % 23.4 % 07/14/2024 7:50 PM [facility] Lymph Absolute 2.03 0.90 - 3.20 x10(3)/mc L 07/14/2024 7:50 PM [facility] Monocyte % 6.8 % 07/14/2024 7:50 PM [facility] Monocyte Absolute 0.59 0.30 - 0.90 x10(3)/mc L 07/14/2024 7:50 PM [facility] Eos % 1.7 % 07/14/2024 7:50 PM [facility] Eos Absolute 0.15 0.00 - 0.40 x10(3)/mc L 07/14/2024 7:50 PM [facility] Basophil % 0.3 % 07/14/2024 7:50 PM EDT [facility] Baso Absolute 0.03 0.00 - 0.10 x10(3)/mc L 07/14/2024 7:50 PM EDT [facility] Immature Gran % 0.5 % 7:50 PM EDT [facility] Immature Gran Absolute 0.04 0.00 - 0.04 x10(3)/mc L 07/14/2024 7:50 PM EDT [facility] Blood VENOUS BLOOD SPECIMEN / Unknown Venipuncture / Unknown 07/14/2024 7:39 PM EDT 07/14/2024 7:46 PM EDT Arthur Patel DO HEMATOLOGY ORDERABLE S [facility] [place] [address] documented in this encounter Visit Diagnoses Not on filedocumented in this encounter Admitting Diagnoses Diagnosis Peripheral artery disease Peripheral vascular disease, unspecified documented in this encounter Administered Medications Inactive Administered Medications - up to 3 most recent administrations Medication Order MAR Action Action Date Dose Rate Site acetaminophen (Tylenol) tablet 975 mg 975 mg, Oral, EVERY 6 HOURS PRN, Starting on 07/15/24 at 0341, Until 07/21/24 at 2209, Pain, - Maximum dose of acetaminophen is 4,000 mg from all sources in 24 hours. - Unless otherwise specified, when ordered PRN for pain, acetaminophen should be given first if other PRN pain medications are ordered., Routine Given 07/21/2024 9:54 AM EDT 975 mg Given 07/21/2024 4:09 AM EDT 975 mg Given 07/19/2024 11:05 PM EDT 975 mg aspirin EC tablet 81 mg 81 mg, Oral, DAILY, First dose on 07/15/24 at 0900, Until Discontinued, Routine Given 07/21/2024 9:51 AM EDT 81 mg Given 07/20/2024 1:21 PM EDT 81 mg Given 07/19/2024 1:03 PM EDT 81 mg atorvastatin (Lipitor) tablet 80 mg 80 mg, Oral, EVERY EVENING, First dose on Wed07/14/24 at 2225, Until Discontinued, Routine Given 07/21/2024 5:14 PM EDT 80 mg Given 07/20/2024 4:13 PM EDT 80 mg Given 07/19/2024 5:25 PM EDT 80 mg bisacodyL (Dulcolax) suppository 10 mg 10 mg, Rectal, DAILY PRN, Starting on 07/15/24 at 1431, Until Wed07/21/24 at 2209, Constipation, Give if no BM within last 24 hr and rectal fullness is reported or assessed. Give concomitantly with any scheduled bowel medications ordered. , Routine bisacodyl EC (Dulcolax) tablet 10 mg 10 mg, Oral, 2 TIMES DAILY PRN, Starting on 07/15/24 at 1431, Until Wed07/21/24 at 2209, Constipation, Give if no BM after 24 hr after prior interventions. BM expected in 6-8 hours. If BM desired sooner, use next ordered agent. Give concomitantly with any scheduled bowel medications ordered., Routine BUPivacaine (pf) (Marcaine) (2.5 mg/mL) 0.25% injection PRN, Starting on Wed07/19/24 at 1007, Until Wed07/19/24 at 1206, Intra-Operative (Intra-Procedure), Routine Given 07/19/2024 10:07 AM EDT 4 mLs 19- Surgical Site dextrose 10% infusion 250 mL, at 1,000 mL/hr, Intravenous, EVERY 15 MIN PRN, Starting on Wed07/16/24 at 0039, Until Wed07/21/24 at 2209, For BG 50-70 mg/dL: Oral treatment preferred: [...] Intramuscular, EVERY 15 MIN PRN, Starting on 07/16/24 at 0039, Until Wed07/21/24 at 2209, Low blood sugar, For BG 50-70 mg/dL: [...] Buccal, EVERY 15 MIN PRN, Starting on 07/16/24 at 0039, Until Wed07/21/24 at 2209, Low blood sugar, For BG 50-70 mg/dL: [...] weight of tube = 37.5 grams.), Routine insulin glargine-ygfn (Semglee) (100 unit/mL) subcutaneous injection vial 50 Units 50 Units, Subcutaneous, NIGHTLY, First dose (after last modification) on Wed07/17/24 at 2100, Until Discontinued, Routine Given 07/20/2024 8:19 PM EDT 50 Units Given 07/19/2024 8:08 PM EDT 50 Units Given 07/18/2024 9:00 PM EDT 50 Units insulin lispro (HumaLOG;Admelog) (100 unit/mL) subcutaneous injection vial 0-20 Units 0-20 Units, Subcutaneous, 3 TIMES DAILY PRN, Starting on Wed07/18/24 at 0726, Until Wed07/21/24 at 2209, with snacks, SNACK ASSOCIATED Give 1 unit for every 4 grams carbohydrate. Hold if not eating or if BG less than 70 mg/dL., Routine insulin lispro (HumaLOG;Admelog) (100 unit/mL) subcutaneous injection vial 0-20 Units 0-20 Units, Subcutaneous, 3 TIMES DAILY WITH MEALS, First dose (after last modification) on Wed07/18/24 at 0800, Until Discontinued, MEAL ASSOCIATED Give 1 unit for every 4 grams carbohydrate. Hold if not eating or if BG less than 70 mg/dL. , Routine Given 07/21/2024 1:05 PM EDT 11 Units Given 07/21/2024 9:57 AM EDT 17 Units Given 07/20/2024 5:57 PM EDT 18 Units insulin lispro (HumaLOG;Admelog) (100 unit/mL) subcutaneous injection vial 1-11 Units 1-11 Units, Subcutaneous, EVERY 4 HOURS SCHEDULED, First dose (after last modification) on Wed07/18/24 at 0800, Until Discontinued, CORRECTION BOLUS [1-11 Units] Custom Sliding Scale (BG in mg/dL): Correction factor 15 (1 unit of insulin is expected to drop the glucose 15mg/dL) BG 140 - 155 Give 1 unit BG 156 - 170 Give 2 units BG 171 - 185 Give 3 units BG 186 - 200 Give 4 units BG 201 - 215 Give 5 units BG 216 - 230 Give 6 units BG 231 - 245 Give 7 units BG 246 - 260 Give 8 units BG 261 - 275 Give 9 units BG 276 - 290 Give 10 units BG greater than 290, give 11 units and recheck BG in 2 hours. For 2hr recheck dose: If recheck BG remains greater than 240, GIVE 4 units. If recheck BG is less than 240 after two hours, give no insulin and resume prior schedule. DO NOT hold if NPO, unless specifically directed to do so by written order. Per Blood Glucose Monitoring Policy, re-check a BG of > 240 mg/dL in 2 hours, Routine Given 07/21/2024 1:05 PM EDT 8 Units Given 07/21/2024 9:56 AM EDT 2 Units Given 07/21/2024 4:09 AM EDT 2 Units lactulose (Chronulac) (0.67 gram/mL) oral liquid 20 g 20 g, Oral, DAILY PRN, Starting on 07/15/24 at 1431, Until Wed07/21/24 at 2209, Constipation, Give if no BM 24 hr after prior interventions or if BM is desired within 2 hr. Give concomitantly with any scheduled bowel medications ordered, Routine lactulose (Chronulac) (0.67 gram/mL) oral liquid 20 g 20 g, Oral, DAILY PRN, Starting on 07/15/24 at 1431, Until Wed07/21/24 at 2209, Constipation, Give an additional (2nd) dose of lactulose 2 hr after 1st dose if still no BM. Disregard if 1st dose of lactulose not ordered. Give concomitantly with any scheduled bowel medications ordered. , Routine losartan (Cozaar) tablet 50 mg 50 mg, Oral, DAILY, First dose on 07/15/24 at 0900, Until Discontinued, Routine Given 07/21/2024 9:50 AM EDT 50 mg Given 07/20/2024 1:21 PM EDT 50 mg Given 07/19/2024 1:04 PM EDT 50 mg magnesium citrate oral liquid 296 mL 296 mL, Oral, ONCE PRN, 1 dose, Starting on 07/15/24 at 1431, Until Wed07/21/24 at 220, Constipation, Give if no BM 2 hr after previous interventions. If 2 hr after mag citrate there is still no BM, see order for tap water enema, if placed. Give concomitantly with any scheduled bowel medications ordered., Routine metoprolol succinate XL (Toprol-XL) tablet 25 mg 25 mg, Oral, DAILY, First dose on 07/15/24 at 0900, Until Discontinued, DO NOT CRUSH OR OPEN, Routine Given 07/21/2024 9:50 AM EDT 25 mg Given 07/20/2024 1:21 PM EDT 25 mg Given 07/19/2024 1:03 PM EDT 25 mg ondansetron (pf) (Zofran) (2 mg/mL) injection 4 mg 4 mg, Intravenous, EVERY 8 HOURS PRN, Starting on Wed07/14/24 at 2208, Until Wed07/21/24 at 220, Nausea, 4 mg,Oral,EVERY 8 HOURS PRN, Nausea,Vomiting If multiple antiemetics are ordered, use ondansetron first. May repeat times one in 30 minutes if ineffective. ondansetron ODT (Zofran-ODT) disintegrating tablet 4 mg 4 mg, Oral, EVERY 8 HOURS PRN, Starting on Wed07/14/24 at 2208, Until Wed07/21/24 at 2209, Nausea, If multiple antiemetics are ordered, use ondansetron first. PO Preferred. If patient unable to take PO, may give IV if ordered. May repeat times one in 45 minutes if ineffective. , Routine pantoprazole EC (Protonix) tablet 40 mg 40 mg, Oral, DAILY, First dose on 07/15/24 at 0900, Until Discontinued Given 07/21/2024 9:50 AM EDT 40 mg Given 07/20/2024 1:21 PM EDT 40 mg Given 07/18/2024 8:37 AM EDT 40 mg piperacillin-tazobactam (Zosyn) 3.375 g vial attach to sodium chloride 0.9% 50 mL Mini-Bag Plus 3.375 g, Intravenous, EVERY 8 HOURS, First dose on 07/16/24 at 1230, Until Discontinued, Administer over 4 Hours, Warning Vesicant/Irritant Medication Per compilation clerk labeling, do not administer or Y-site with lactated ringers., Indication for (Active or Suspected): Sinusitis/Pharyngitis New Bag 07/21/2024 1:07 PM EDT 3.375 g 12.5 mL/hr New Bag 07/21/2024 4:09 AM EDT 3.375 g 12.5 mL/hr New Bag 07/20/2024 8:37 PM EDT 3.375 g 12.5 mL/hr polyethylene glycoL (Miralax) packet 17 g 17 g, Oral, DAILY PRN, Starting on Wed07/15/24 at 1431, Until Wed07/21/24 at 2209, Constipation, Give if no BM within last 24 hr. Give concomitantly with any scheduled bowel medications ordered. , Routine prochlorperazine (Compazine) (5 mg/mL) injection 10 mg 10 mg, Intravenous, EVERY 6 HOURS PRN, Starting on Wed07/14/24 at 2208, Until Wed07/21/24 at 2209, Nausea, Nausea/Vomiting, If multiple antiemetics are ordered, use ondansetron first. If ondansetron ineffective use prochlorperazine. Only give IV if unable to take PO, Routine prochlorperazine (Compazine) tablet 10 mg 10 mg, Oral, EVERY 6 HOURS PRN, Starting on Wed07/14/24 at 2208, Until Wed07/21/24 at 2209, Nausea, Nausea/Vomiting, If multiple antiemetics are ordered, use ondansetron first. If ondansetron ineffective use prochlorperazine. PO Preferred. If patient unable to take PO, may give IV if ordered., Routine protriptyline (Vivactil) tablet 10 mg 10 mg, Oral, 3 TIMES DAILY, First dose on Wed07/17/24 at 1200, Until Discontinued, Routine Given 07/21/2024 3:22 PM EDT 10 mg Given 07/21/2024 11:09 AM EDT 10 mg Given 07/20/2024 8:27 PM EDT 10 mg rivaroxaban (Xarelto) tablet 20 mg 20 mg, Oral, DAILY, First dose on Wed07/21/24 at 1730, Until Discontinued, Routine, rivaroxaban (Xarelto) Indication: Peripheral Artery Disease, Stable Given 07/21/2024 5:59 PM EDT 20 mg senna-docusate (Pericolace) 8.6-50 mg per tablet 2 tablet 2 tablet, Oral, 2 TIMES DAILY, First dose on Wed07/15/24 at 1450, Until Discontinued, Hold for loose stool. , Routine Given 07/21/2024 9:50 AM EDT 2 tablets Given 07/20/2024 8:27 PM EDT 2 tablets Given 07/20/2024 1:21 PM EDT 2 tablets sodium chloride 0.9 % (flush) (BD PosiFlush Normal Saline 0.9) flush 5 mL 5 mL, Intravenous, 2 TIMES DAILY, First dose on Wed07/14/24 at 2225, Until Discontinued, Routine Given 07/21/2024 9:54 AM EDT 5 mLs Given 07/20/2024 9:00 PM EDT 5 mLs Given 07/19/2024 8:08 PM EDT 5 mLs venlafaxine (Effexor) tablet 225 mg 225 mg, Oral, DAILY, First dose on Wed07/17/24 at 0900, Until Discontinued, Routine Given 07/21/2024 11:11 AM EDT 225 mg Given 07/20/2024 1:22 PM EDT 225 mg Given 07/19/2024 1:06 PM EDT 225 mg documented in this encounter Active and Recently Administered Medications Times are shown in EDT. Scheduled Medication Order 07/19/2024 07/20/2024 07/21/2024 aspirin EC tablet 81 mg 81 mg, Oral, DAILY, First dose on 07/15/24 at 0900, Until Discontinued, Routine 0857 (JAN Hold - Provider: Admin Adt - Reason: Transfer to a Procedural area)0900 (Automatically Held - Provider: Admin Adt)1206 (JAN Unhold - Provider: Admin Adt)1303 (Given - Provider: Enid Johnson LPN) 1321 (Given - Provider: Lauren Zavala, DAVID) 0951 (Given - Provider: Nava Huggins, RN) atorvastatin (Lipitor) tablet 80 mg 80 mg, Oral, EVERY EVENING, First dose on 07/14/24 at 2225, Until Discontinued, Routine 0857 (JAN Hold - Provider: Admin Adt - Reason: Transfer to a Procedural area)1206 (JAN Unhold - Provider: Admin Adt)1725 (Given - Provider: Gavin Rudd, DAVID) 1613 (Given - Provider: Jaaj Diallo, DAVID) 1714 (Given - Provider: Nava Huggins, DAVID) ceFAZolin (Ancef) 2 g vial attach to sodium chloride 0.9% 100 mL Mini-Bag Plus (COMPLETED) 2 g, Intravenous, ONCE, 1 dose, On Angelita 07/20/24 at 0945, Administer over 30 Minutes, Redose every 4 hours if CrCl is greater than 20 mL/min. Redose every 8 hours if CrCl is less than 20 mL/min., Angio/IR (Day of Procedure), Indication for (Active or Suspected): Prophylaxis 0948 (New Bag - Provider: Hailey Nick, DAVID)1018 (Stopped - Provider: Lauren Zavala RN) heparin (porcine) (5,000 units/1 mL) subcutaneous injection 5,000 Units (CANCELED) 5,000 Units, Subcutaneous, EVERY 8 HOURS SCHEDULED, First dose on Wed07/19/24 at 2200, Until Discontinued, Routine 211 (Given - Provider: Anabel Jonas, RN) 0625 (Given - Provider: Anabel Jonas, RN)1321 (Given - Provider: Lauren Zavala, RN) insulin glargine-ygfn (Semglee) (100 unit/mL) subcutaneous injection vial 50 Units 50 Units, Subcutaneous, NIGHTLY, First dose (after last modification) on Wed07/17/24 at 2100, Until Discontinued, Routine 0857 (JAN Hold - Provider: Admin Adt - Reason: Transfer to a Procedural area)1206 (JAN Unhold - Provider: Admin Adt)2007 (Given - Provider: Anabel Jonas, RN) 2019 (Given - Provider: Anabel Jonas, RN) insulin lispro (HumaLOG;Admelog) (100 unit/mL) subcutaneous injection vial 0-20 Units 0-20 Units, Subcutaneous, 3 TIMES DAILY WITH MEALS, First dose (after last modification) on Wed07/18/24 at 0800, Until Discontinued, [employer] Give 1 unit for every 4 grams carbohydrate. Hold if not eating or if BG less than 70 mg/dL. , Routine 0800 (Not Given - Provider: Gavin Rudd, DAVID - Reason: NPO)0857 (JAN Hold - Provider: Admin Adt - Reason: Transfer to a Procedural area)1200 (Automatically Held - Provider: Admin Adt)1206 (JAN Unhold - Provider: Admin Adt)1800 (Given - Provider: Gavin Rudd, DAVID) 0800 (Not Given - Provider: Lauren Zavala, DAVID - Reason: NPO)1400 (Given - Provider: Lauren Zavala, DAVID)1757 (Given - Provider: Lauren Zavala, DAVID) 0957 (Given - Provider: Nava Huggins, RN)1305 (Given - Provider: Nava Huggins, RN)1700 (Due) insulin lispro (HumaLOG;Admelog) (100 unit/mL) subcutaneous injection vial 1-11 Units(Linked Group 1) 1-11 Units, Subcutaneous, EVERY 4 HOURS SCHEDULED, First dose (after last modification) on Wed07/18/24 at 0800, Until Discontinued, CORRECTION BOLUS [1-11 Units] Custom Sliding Scale (BG in mg/dL): Correction factor 15 (1 unit of insulin is expected to drop the glucose 15mg/dL) BG 140 - 155 Give 1 unit BG 156 - 170 Give 2 units BG 171 - 185 Give 3 units BG 186 - 200 Give 4 units BG 201 - 215 Give 5 units BG 216 - 230 Give 6 units BG 231 - 245 Give 7 units BG 246 - 260 Give 8 units BG 261 - 275 Give 9 units BG 276 - 290 Give 10 units BG greater than 290, give 11 units and recheck BG in 2 hours. For 2hr recheck dose: If recheck BG remains greater than 240, GIVE 4 units. If recheck BG is less than 240 after two hours, give no insulin and resume prior schedule. DO NOT hold if NPO, unless specifically directed to do so by written order. Per Blood Glucose Monitoring Policy, re-check a BG of > 240 mg/dL in 2 hours, Routine 0050 (Given - Provider: Cecilia Cm RN)0420 (Not Given - Provider: Cecilia Cm RN - Reason: Order parameters not met)0748 (Given - Provider: Gavin Rudd RN - Comment: BG 195)0857 (MAR Hold - Provider: Admin Adt - Reason: Transfer to a Procedural area)1200 (Automatically Held - Provider: Admin Adt)1206 (MAR Unhold - Provider: Admin Adt)1725 (Given - Provider: Gavin Rudd RN - Comment: BG 171)1939 (Given - Provider: Anabel Jonas RN - Comment: [phone] (Given - Provider: Anabel Jonas RN - Comment: [phone]) 0101 (Given - Provider: Marycruz Tirado RN - Comment: 2 hr recheck 342)0342 (Given - Provider: Anabel Jonas RN - Comment: [phone])0800 (Not Given - Provider: Lauren Zavala RN - Reason: Order parameters not met)1200 (Not Given - Provider: Lauren Zavlaa RN - Reason: Order parameters not met)1614 (Given - Provider: Jaja Diallo RN)2018 (Given - Provider: Anabel Jonas RN - Comment: [phone]) 0005 (Given - Provider: Carlos Enrique Knowles, RN)0409 (Given - Provider: Carlos Enrique Knowles RN)0956 (Given - Provider: Nava Huggins, DAVID - Comment: [phone] (Given - Provider: Nava Huggins, RN)1600 (Due) iodixanoL (Visipaque) (320 mg/mL) injection solution 1-400 mL (COMPLETED) 1-400 mL, Intra-arterial, ONCE, 1 dose, On Angelita 07/20/24 at 1015, For intra-procedural use by proceduralist., Angio/IR (Intra-Procedure), Routine 1015 (Given - Provider: Rosa Pelaez) lidocaine (Xylocaine) 1% (10 mg/mL) injection 10 mg (COMPLETED) 10 mg, Subcutaneous, ONCE, 1 dose, On Angelita 07/20/24 at 0945, For use in Interventional Radiology (IR) only for procedure with direct provider supervision and verbal order., Angio/IR (Intra-Procedure), Routine 0957 (Given - Provider: Dolly Dan MD - Comment: Right groin) losartan (Cozaar) tablet 50 mg 50 mg, Oral, DAILY, First dose on 07/15/24 at 0900, Until Discontinued, Routine 0857 (JAN Hold - Provider: Admin Adt - Reason: Transfer to a Procedural area)0900 (Automatically Held - Provider: Admin Adt)1206 (JAN Unhold - Provider: Admin Adt)1304 (Given - Provider: Enid Johnson LPN) 1321 (Given - Provider: Lauren Zavala RN) 0950 (Given - Provider: Nava Huggins, DAVID) metoprolol succinate XL (Toprol-XL) tablet 25 mg 25 mg, Oral, DAILY, First dose on 07/15/24 at 0900, Until Discontinued, DO NOT CRUSH OR OPEN, Routine 0857 (JAN Hold - Provider: Admin Adt - Reason: Transfer to a Procedural area)0900 (Automatically Held - Provider: Admin Adt)1206 (JAN Unhold - Provider: Admin Adt)1303 (Given - Provider: Enid Johnson LPN) 1321 (Given - Provider: Lauren Zavala, DAVID) 0950 (Given - Provider: Nava Huggins, DAVID) pantoprazole EC (Protonix) tablet 40 mg 40 mg, Oral, DAILY, First dose on 07/15/24 at 0900, Until Discontinued 0857 (JAN Hold - Provider: Admin Adt - Reason: Transfer to a Procedural area)0900 (Automatically Held - Provider: Admin Adt)1206 (JAN Unhold - Provider: Admin Adt) 1321 (Given - Provider: Lauren Zavala RN) 0950 (Given - Provider: Nava Huggins, DAVID) piperacillin-tazobactam (Zosyn) 3.375 g vial attach to sodium chloride 0.9% 50 mL Mini-Bag Plus 3.375 g, Intravenous, EVERY 8 HOURS, First dose on Wed07/16/24 at 1230, Until Discontinued, Administer over 4 Hours, Warning Vesicant/Irritant Medication Per compilation clerk labeling, do not administer or Y-site with lactated ringers., Indication for (Active or Suspected): Sinusitis/Pharyngitis 0147 (Stopped - Provider: Cecilia Cm RN)0419 (New Bag - Provider: Cecilia Cm RN)0819 (Stopped - Provider: Gavin Rudd, DAVID)0857 (JAN Hold - Provider: Admin Adt - Reason: Transfer to a Procedural area)1206 (JAN Unhold - Provider: Admin Adt)1305 (New Bag - Provider: Enid Johnson LPN)1705 (Stopped - Provider: Gavin Rudd RN)1939 (New Bag - Provider: Anabel Jonas RN)2341 (Stopped - Provider: Anabel Jonas RN) 0412 (New Bag - Provider: Anabel Jonas, DAVID)0812 (Stopped - Provider: Lauren Zavala RN)1302 (New Bag - Provider: Lauren Zavala, DAVID)1702 (Stopped - Provider: Lauren Zavala, DAVID)2037 (New Bag - Provider: Anabel Jonas, DAVID) 0037 (Stopped - Provider: Carlos Enrique Knowles RN)0409 (New Bag - Provider: Carlos Enrique Knowles RN)0809 (Stopped - Provider: Nava Huggins, DAVID)1307 (New Bag - Provider: Nava Huggins, RN)1707 (Stopped - Provider: Nava Huggins, RN) protriptyline (Vivactil) tablet 10 mg 10 mg, Oral, 3 TIMES DAILY, First dose on Wed07/17/24 at 1200, Until Discontinued, Routine 0857 (JAN Hold - Provider: Admin Adt - Reason: Transfer to a Procedural area)0900 (Automatically Held - Provider: Admin Adt)1206 (JAN Unhold - Provider: Admin Adt)1305 (Given - Provider: Enid Johnson LPN)1500 (Not Given - Provider: Gavin Rudd RN - Reason: See comment - Comment: Not given due to first dose was given late because of being in the OR)2005 (Given - Provider: Anabel Jonas RN) 0900 (Not Given - Provider: Lauren Zavala RN - Reason: See comment - Comment: too close to next dose)1613 (Given - Provider: Jaja Diallo RN)202 (Given - Provider: Anabel Jonas RN) 1109 (Given - Provider: Nava Huggins RN - Comment: missing medication rx notified)1522 (Given - Provider: Nava Huggins, DAVID) rivaroxaban (Xarelto) tablet 20 mg 20 mg, Oral, DAILY, First dose on Wed07/21/24 at 1730, Until Discontinued, Routine, rivaroxaban (Xarelto) Indication: Peripheral Artery Disease, Stable 175 (Given - Provider: Nava Huggins, DAVID) senna-docusate (Pericolace) 8.6-50 mg per tablet 2 tablet 2 tablet, Oral, 2 TIMES DAILY, First dose on Wed07/15/24 at 1450, Until Discontinued, Hold for loose stool. , Routine 0857 (MAR Hold - Provider: Admin Adt - Reason: Transfer to a Procedural area)0900 (Automatically Held - Provider: Admin Adt)1206 (MAR Unhold - Provider: Admin Adt)1304 (Not Given - Provider: Enid Johnson LPN - Reason: Patient/family refused)2100 (Not Given - Provider: Anabel Jonas RN - Reason: Patient/family refused) 1321 (Given - Provider: Lauren Zavala RN)2027 (Given - Provider: Anabel Jonas RN) 0950 (Given - Provider: Nava Huggins RN) sodium chloride 0.9 % (flush) (BD PosiFlush Normal Saline 0.9) flush 5 mL 5 mL, Intravenous, 2 TIMES DAILY, First dose on Wed07/14/24 at 2225, Until Discontinued, Routine 0857 (MAR Hold - Provider: Admin Adt - Reason: Transfer to a Procedural area)0900 (Automatically Held - Provider: Admin Adt)1206 (MAR Unhold - Provider: Admin Adt)2007 (Given - Provider: Anabel Jnoas, RN) 0900 (Due)2100 (Given - Provider: Anabel Jonas RN) 0954 (Given - Provider: Nava Huggins, RN) venlafaxine (Effexor) tablet 225 mg 225 mg, Oral, DAILY, First dose on 07/17/24 at 0900, Until Discontinued, Routine 0857 (JAN Hold - Provider: Admin Adt - Reason: Transfer to a Procedural area)0900 (Automatically Held - Provider: Admin Adt)1206 (JAN Unhold - Provider: Admin Adt)1306 (Given - Provider: Enid Johnson LPN) 1322 (Given - Provider: Lauren Zavala RN) 1111 (Given - Provider: Nava Huggins, RN - Comment: missing medication rx notified) Continuous Medication Order 07/19/2024 07/20/2024 07/21/2024 heparin (porcine) 50 units/mL in dextrose 5% 500 mL infusion (CANCELED)(Linked Group 2) 0-5,000 Units/hr (0-100 mL/hr), Intravenous, CONTINUOUS, Starting on 07/15/24 at 1415, Until 07/19/24 at 1149, Begin infusion at 1,800 units per hr (18 units/kg/hr). Maximum initial [...] UFH Level - Per Protocol , Routine 0216 (New Bag - Provider: Lindsey Haddad RN)0857 (JAN Hold - Provider: Admin Adt - Reason: Transfer to a Procedural area)1149 (Hold - Provider: Cynthia Solorzano RN - Reason: See comment - Comment: not infusing on assessment, order to d/c.)1149 (JAN Unhold - Provider: Cristiano Jones MD) heparin (porcine) 50 units/mL in dextrose 5% 500 mL infusion (CANCELED) 500 Units/hr (10 mL/hr), Intravenous, CONTINUOUS, Starting on Angelita 07/20/24 at 1630, Until Wed07/21/24 at 1613, Routine 1720 (New Bag - Provider: Lauren Zavala RN) 1759 (Stopped - Provider: Nava Huggins, RN) PRN Medication Order 07/19/2024 07/20/2024 07/21/2024 acetaminophen (Tylenol) tablet 975 mg 975 mg, Oral, EVERY 6 HOURS PRN, Starting on 07/15/24 at 0341, Until Wed07/21/24 at 2209, Pain, - Maximum dose of acetaminophen is 4,000 mg from all sources in 24 hours. - Unless otherwise specified, when ordered PRN for pain, acetaminophen should be given first if other PRN pain medications are ordered., Routine 0857 (JAN Hold - Provider: Admin Adt - Reason: Transfer to a Procedural area)1206 (JAN Unhold - Provider: Admin Adt)2305 (Given - Provider: Anabel Jonas RN) 0409 (Given - Provider: Carlos Enrique C S Young, RN)0954 (Given - Provider: Nava Huggins RN) bisacodyL (Dulcolax) suppository 10 mg(Linked Group 3) 10 mg, Rectal, DAILY PRN, Starting on 07/15/24 at 1431, Until Wed07/21/24 at 2209, Constipation, Give if no BM within last 24 hr and rectal fullness is reported or assessed. Give concomitantly with any scheduled bowel medications ordered. , Routine 0857 (JAN Hold - Provider: Admin Adt - Reason: Transfer to a Procedural area)1206 ([facility] Unhold - Provider: Admin Adt) bisacodyl EC (Dulcolax) tablet 10 mg(Linked Group 3) 10 mg, Oral, 2 TIMES DAILY PRN, Starting on 07/15/24 at 1431, Until Wed07/21/24 at 2209, Constipation, Give if no BM after 24 hr after prior interventions. BM expected in 6-8 hours. If BM desired sooner, use next ordered agent. Give concomitantly with any scheduled bowel medications ordered., Routine 0857 (JAN Hold - Provider: Admin Adt - Reason: Transfer to a Procedural area)1206 ([facility] Unhold - Provider: Admin Adt) BUPivacaine (pf) (Marcaine) (2.5 mg/mL) 0.25% injection (CANCELED) PRN, Starting on Wed07/19/24 at 1007, Until Wed07/19/24 at 1206, Intra-Operative (Intra-Procedure), Routine 1007 (Given - Provider: Cristiano Jones MD) dextrose 10% infusion(Linked Group 4) 250 mL, at 1,000 mL/hr, Intravenous, EVERY 15 MIN PRN, Starting on Wed07/16/24 at 0039, Until Wed07/21/24 at 2209, For BG 50-70 mg/dL: Oral treatment preferred: [...] insulin orders before administering the next dose. 0857 (JAN Hold - Provider: Admin Adt - Reason: Transfer to a Procedural area)1206 (JAN Unhold - Provider: Admin Adt) fentaNYL (pf) (50 mcg/mL) multi-dose injection 25-50 mcg (CANCELED) 25-50 mcg, Intravenous, EVERY 3 MIN PRN, Starting on Angelita 07/20/24 at 0918, Until Angelita 07/20/24 at 1142, Pain, per unit protocol, For use in Interventional Radiology (IR) only for procedural sedation with direct provider supervision and verbal order. - Start dose: 50 mcg (reduce dose to 25 mcg if history of sedation sensitivity). - Titration dose: 25-50 mcg IV, (based on patient response) every 3 minutes PRN to maintain procedural pain less than 2 per Pain Scale. Maximum dose: 50 mcg/dose, 250 mcg/hour, Angio/IR (Intra-Procedure), Routine 0948 (Given - Provider: Hailey Nick, DAVID)0958 (Given - Provider: Hailey Nick, DAVID)1002 (Given - Provider: Hailey Nick, DAVID) glucagon (Glucagen) (1 mg/mL) injection solution 1 mg(Linked Group 4) 1 mg, Intramuscular, EVERY 15 MIN PRN, Starting on Wed07/16/24 at 0039, Until Wed07/21/24 at 2209, Low blood sugar, For BG 50-70 mg/dL: [...] before administering the next dose. , Routine 0857 (JAN Hold - Provider: Admin Adt - Reason: Transfer to a Procedural area)1206 (JAN Unhold - Provider: Admin Adt) glucose (Glutose) 40% oral geL(Linked Group 4) 15-30 g of glucose, Buccal, EVERY 15 MIN PRN, Starting on Wed07/16/24 at 0039, Until Wed07/21/24 at 2209, Low blood sugar, For BG 50-70 mg/dL: [...] weight of tube = 37.5 grams.), Routine 0857 ([facility] Hold - Provider: Admin Adt - Reason: Transfer to a Procedural area)1206 ([facility] Unhold - Provider: Admin Adt) insulin lispro (HumaLOG;Admelog) (100 unit/mL) subcutaneous injection vial 0-20 Units 0-20 Units, Subcutaneous, 3 TIMES DAILY PRN, Starting on Wed07/18/24 at 0726, Until Wed07/21/24 at 2209, with snacks, [employer] Give 1 unit for every 4 grams carbohydrate. Hold if not eating or if BG less than 70 mg/dL., Routine 0857 ([facility] Hold - Provider: Admin Adt - Reason: Transfer to a Procedural area)1206 ([facility] Unhold - Provider: Admin Adt) lactulose (Chronulac) (0.67 gram/mL) oral liquid 20 g(Linked Group 3) 20 g, Oral, DAILY PRN, Starting on 07/15/24 at 1431, Until Wed07/21/24 at 2209, Constipation, Give if no BM 24 hr after prior interventions or if BM is desired within 2 hr. Give concomitantly with any scheduled bowel medications ordered, Routine 0857 ([facility] Hold - Provider: Admin Adt - Reason: Transfer to a Procedural area)1206 ([facility] Unhold - Provider: Admin Adt) lactulose (Chronulac) (0.67 gram/mL) oral liquid 20 g(Linked Group 3) 20 g, Oral, DAILY PRN, Starting on 07/15/24 at 1431, Until Wed07/21/24 at 2209, Constipation, Give an additional (2nd) dose of lactulose 2 hr after 1st dose if still no BM. Disregard if 1st dose of lactulose not ordered. Give concomitantly with any scheduled bowel medications ordered. , Routine 0857 ([facility] Hold - Provider: Admin Adt - Reason: Transfer to a Procedural area)1206 ([facility] Unhold - Provider: Admin Adt) lidocaine (Xylocaine) 1% (10 mg/mL) injection 3 mg 3 mg (0.3 mL), Subcutaneous, ONCE PRN, 1 dose, Starting on Wed07/14/24 at 2208, Until Wed07/21/24 at 2209, for discomfort with PIV insertion, Routine 0857 ([facility] Hold - Provider: Admin Adt - Reason: Transfer to a Procedural area)1206 ([facility] Unhold - Provider: Admin Adt) magnesium citrate oral liquid 296 mL(Linked Group 3) 296 mL, Oral, ONCE PRN, 1 dose, Starting on 07/15/24 at 1431, Until Wed07/21/24 at 2209, Constipation, Give if no BM 2 hr after previous interventions. If 2 hr after mag citrate there is still no BM, see order for tap water enema, if placed. Give concomitantly with any scheduled bowel medications ordered., Routine 0857 ([facility] Hold - Provider: Admin Adt - Reason: Transfer to a Procedural area)1206 ([facility] Unhold - Provider: Admin Adt) melatonin tablet 3 mg 3 mg, Oral, NIGHTLY PRN, Starting on 07/14/24 at 2208, Until Wed07/21/24 at 2209, Sleep, Sleep, Routine 0857 ([facility] Hold - Provider: Admin Adt - Reason: Transfer to a Procedural area)1206 ([facility] Unhold - Provider: Admin Adt) midazolam (pf) (Versed) (1 mg/mL) multi-dose injection 0.5-1 mg (CANCELED) 0.5-1 mg, Intravenous, EVERY 3 MIN PRN, Starting on Angelita 07/20/24 at 0918, Until Angelita 07/20/24 at 1142, Sedation, For use in Interventional Radiology (IR) only for procedural sedation with direct provider supervision and verbal order. - Start dose: 1 mg (Reduce dose to 0.5 mg if history of sedation sensitivity). - Titration dose: 0.5 mg - 1 mg (based on patient response) every 3 minutes PRN to obtain RASS score of -3. Maximum dose: 1 mg/dose, 5 mg/hour., Angio/IR (Intra-Procedure), Routine 0949 (Given - Provider: Hailey Nick, DAVID)0959 (Given - Provider: Hailey Nick, DAVID)1002 (Given - Provider: Hailey Nick, DAVID) ondansetron (pf) (Zofran) (2 mg/mL) injection 4 mg(Linked Group 5) 4 mg, Intravenous, EVERY 8 HOURS PRN, Starting on Wed07/14/24 at 2208, Until Wed07/21/24 at 2209, Nausea, 4 mg,Oral,EVERY 8 HOURS PRN, Nausea,Vomiting If multiple antiemetics are ordered, use ondansetron first. May repeat times one in 30 minutes if ineffective. 0857 ([facility] Hold - Provider: Admin Adt - Reason: Transfer to a Procedural area)1206 ([facility] Unhold - Provider: Admin Adt) ondansetron ODT (Zofran-ODT) disintegrating tablet 4 mg(Linked Group 5) 4 mg, Oral, EVERY 8 HOURS PRN, Starting on Wed07/14/24 at 2208, Until Wed07/21/24 at 2209, Nausea, If multiple antiemetics are ordered, use ondansetron first. PO Preferred. If patient unable to take PO, may give IV if ordered. May repeat times one in 45 minutes if ineffective. , Routine 08 ([facility] Hold - Provider: Admin Adt - Reason: Transfer to a Procedural area)1206 ([facility] Unhold - Provider: Admin Adt) oxyCODONE (Roxicodone) tablet 5 mg (COMPLETED) 5 mg, Oral, ONCE PRN, 1 dose, Starting on Angelita 07/20/24 at 0356, Until Angelita 07/20/24 at 0412, Pain, Routine 041 (Given - Provider: Anabel Jonas RN) polyethylene glycoL (Miralax) packet 17 g(Linked Group 3) 17 g, Oral, DAILY PRN, Starting on 07/15/24 at 1431, Until Wed07/21/24 at 2209, Constipation, Give if no BM within last 24 hr. Give concomitantly with any scheduled bowel medications ordered. , Routine 0857 ([facility] Hold - Provider: Admin Adt - Reason: Transfer to a Procedural area)1206 ([facility] Unhold - Provider: Admin Adt) prochlorperazine (Compazine) (5 mg/mL) injection 10 mg(Linked Group 6) 10 mg, Intravenous, EVERY 6 HOURS PRN, Starting on Wed07/14/24 at 2208, Until Wed07/21/24 at 2209, Nausea, Nausea/Vomiting, If multiple antiemetics are ordered, use ondansetron first. If ondansetron ineffective use prochlorperazine. Only give IV if unable to take PO, Routine 0857 ([facility] Hold - Provider: Admin Adt - Reason: Transfer to a Procedural area)1206 (JAN Unhold - Provider: Admin Adt) prochlorperazine (Compazine) tablet 10 mg(Linked Group 6) 10 mg, Oral, EVERY 6 HOURS PRN, Starting on Wed07/14/24 at 2208, Until Wed07/21/24 at 2209, Nausea, Nausea/Vomiting, If multiple antiemetics are ordered, use ondansetron first. If ondansetron ineffective use prochlorperazine. PO Preferred. If patient unable to take PO, may give IV if ordered., Routine 0857 (JAN Hold - Provider: Admin Adt - Reason: Transfer to a Procedural area)1206 ([facility] Unhold - Provider: Admin Adt) sodium chloride 0.9 % (flush) (BD PosiFlush Normal Saline 0.9) flush 5-20 mL 5-20 mL, Intravenous, EVERY 1 MIN PRN, Starting on Wed07/14/24 at 2208, Until Wed07/21/24 at 2209, flush, Flush pertains to all indwelling lines. Flush per protocol found in the job aid using the link provided on this medication record., Routine 0857 (JAN Hold - Provider: Admin Adt - Reason: Transfer to a Procedural area)1206 ([facility] Unhold - Provider: Admin Adt) Linked Groups Order Group 1: POCT Fingerstick Glucose (CANCELED) Routine, EVERY 4 HOURS, First occurrence on Wed07/18/24 at 0800, Until Specified, Consider choosing EVERY 4 HOURS as frequency for: - Type 1 Diabetes - At least 24 hours after coming off an insulin drip - At least 24 hours after admission for DKA - Hypoglycemia unawareness - Patients who are otherwise unstable Select the same frequency for the correction bolus insulin order And insulin lispro (HumaLOG;Admelog) (100 unit/mL) subcutaneous injection vial 1-11 UnitsJump to med 1-11 Units, Subcutaneous, EVERY 4 HOURS SCHEDULED, First dose (after last modification) on Wed07/18/24 at 0800, Until Discontinued, CORRECTION BOLUS [1-11 Units] Custom Sliding Scale (BG in mg/dL): Correction factor 15 (1 unit of insulin is expected to drop the glucose 15mg/dL) BG 140 - 155 Give 1 unit BG 156 - 170 Give 2 units BG 171 - 185 Give 3 units BG 186 - 200 Give 4 units BG 201 - 215 Give 5 units BG 216 - 230 Give 6 units BG 231 - 245 Give 7 units BG 246 - 260 Give 8 units BG 261 - 275 Give 9 units BG 276 - 290 Give 10 units BG greater than 290, give 11 units and recheck BG in 2 hours. For 2hr recheck dose: If recheck BG remains greater than 240, GIVE 4 units. If recheck BG is less than 240 after two hours, give no insulin and resume prior schedule. DO NOT hold if NPO, unless specifically directed to do so by written order. Per Blood Glucose Monitoring Policy, re-check a BG of > 240 mg/dL in 2 hours, Routine Group 2: heparin (porcine) 50 units/mL in dextrose 5% 500 mL infusion (CANCELED)Jump to med 0-5,000 Units/hr (0-100 mL/hr), Intravenous, CONTINUOUS, Starting on 07/15/24 at 1415, Until 07/19/24 at 1149, Begin infusion at 1,800 units per hr (18 units/kg/hr). Maximum initial [...] Intravenous, BOLUS PER HEPARIN PROTOCOL, Starting on 07/15/24 at 1359, Until 07/19/24 at 1149, Per Protocol, START ADJUSTMENT SCHEDULE 6 HOURS [...] 0.2 international unit/mL: No Bolus, Routine Group 3: polyethylene glycoL (Miralax) packet 17 gJump to med 17 g, Oral, DAILY PRN, Starting on 07/15/24 at 1431, Until Wed07/21/24 at 2209, Constipation, Give if no BM within last 24 hr. Give concomitantly with any scheduled bowel medications ordered. , Routine And bisacodyL (Dulcolax) suppository 10 mgJump to med 10 mg, Rectal, DAILY PRN, Starting on 07/15/24 at 1431, Until Wed07/21/24 at 2209, Constipation, Give if no BM within last 24 hr and rectal fullness is reported or assessed. Give concomitantly with any scheduled bowel medications ordered. , Routine And bisacodyl EC (Dulcolax) tablet 10 mgJump to med 10 mg, Oral, 2 TIMES DAILY PRN, Starting on 07/15/24 at 1431, Until Wed07/21/24 at 2209, Constipation, Give if no BM after 24 hr after prior interventions. BM expected in 6-8 hours. If BM desired sooner, use next ordered agent. Give concomitantly with any scheduled bowel medications ordered., Routine And lactulose (Chronulac) (0.67 gram/mL) oral liquid 20 gJump to med 20 g, Oral, DAILY PRN, Starting on 07/15/24 at 1431, Until Wed07/21/24 at 2209, Constipation, Give if no BM 24 hr after prior interventions or if BM is desired within 2 hr. Give concomitantly with any scheduled bowel medications ordered, Routine And lactulose (Chronulac) (0.67 gram/mL) oral liquid 20 gJump to med 20 g, Oral, DAILY PRN, Starting on 07/15/24 at 1431, Until Wed07/21/24 at 2209, Constipation, Give an additional (2nd) dose of lactulose 2 hr after 1st dose if still no BM. Disregard if 1st dose of lactulose not ordered. Give concomitantly with any scheduled bowel medications ordered. , Routine And magnesium citrate oral liquid 296 mLJump to med 296 mL, Oral, ONCE PRN, 1 dose, Starting on 07/15/24 at 1431, Until Wed07/21/24 at 220, Constipation, Give if no BM 2 hr after previous interventions. If 2 hr after mag citrate there is still no BM, see order for tap water enema, if placed. Give concomitantly with any scheduled bowel medications ordered., Routine And Tap water enema (CANCELED) Routine, DAILY PRN, Starting on 07/15/24 at 1431, Until Specified, Give if no BM in at least 24 hr and all other ordered bowel regimen medications have been unsuccessful. Give concomitantly with any scheduled bowel medications ordered. Group 4: glucose (Glutose) 40% oral geLJump to med 15-30 g of glucose, Buccal, EVERY 15 MIN PRN, Starting on 07/16/24 at 0039, Until Wed07/21/24 at 2209, Low blood sugar, For BG 50-70 mg/dL: [...] Intravenous, EVERY 15 MIN PRN, Starting on Wed07/16/24 at 0039, Until Wed07/21/24 at 2209, For BG 50-70 mg/dL: Oral treatment preferred: [...] Intramuscular, EVERY 15 MIN PRN, Starting on Sun 24 at 0039, Until Wed07/21/24 at 2209, Low blood sugar, For BG 50-70 mg/dL: [...] before administering the next dose. , Routine Group 5: ondansetron ODT (Zofran-ODT) disintegrating tablet 4 mgJump to med 4 mg, Oral, EVERY 8 HOURS PRN, Starting on Wed07/14/24 at 2208, Until Wed07/21/24 at 2209, Nausea, If multiple antiemetics are ordered, use ondansetron first. PO Preferred. If patient unable to take PO, may give IV if ordered. May repeat times one in 45 minutes if ineffective. , Routine Or ondansetron (pf) (Zofran) (2 mg/mL) injection 4 mgJump to med 4 mg, Intravenous, EVERY 8 HOURS PRN, Starting on Wed07/14/24 at 2208, Until Wed07/21/24 at 2209, Nausea, 4 mg,Oral,EVERY 8 HOURS PRN, Nausea,Vomiting If multiple antiemetics are ordered, use ondansetron first. May repeat times one in 30 minutes if ineffective. Group 6: prochlorperazine (Compazine) tablet 10 mgJump to med 10 mg, Oral, EVERY 6 HOURS PRN, Starting on Wed07/14/24 at 2208, Until Wed07/21/24 at 2209, Nausea, Nausea/Vomiting, If multiple antiemetics are ordered, use ondansetron first. If ondansetron ineffective use prochlorperazine. PO Preferred. If patient unable to take PO, may give IV if ordered., Routine Or prochlorperazine (Compazine) (5 mg/mL) injection 10 mgJump to med 10 mg, Intravenous, EVERY 6 HOURS PRN, Starting on Wed07/14/24 at 2208, Until Wed07/21/24 at 2209, Nausea, Nausea/Vomiting, If multiple antiemetics are ordered, use ondansetron first. If ondansetron ineffective use prochlorperazine. Only give IV if unable to take PO, Routine documented in this encounter Care Teams Tank Car Reconditioner Relationship Specialty Start Date End Date None None PCP - General 05/27/24 documented as of this encounter
--- OUTSIDE RECORDS SUMMARY | 2024-07-25 15:01 | XMS_ITS | Encounter Summary ---
Author Organization [facility] [place] [address] Care Team Providers Care Automotive Production Worker Name Role Phone None Primary Care Provider Unavailabl e Encounter Details Date Type Department Care Team (Late st Contact Info) Description 06/03/2024 Notes [place] [address] Christy Lim Social History Tobacco Use Types Packs/Day Years Used Date Smoking Tobacco: Every Day Cigarettes 1 25 Started: 12/28/1986; Last attempted to quit: 12/28/2011 Alcohol Use Standard Drinks/Week Comments No 0 (1 standard drink = 0.6 oz pur e alcohol) [facility] Utilities Answer Date Recorded In the [...] any time in the past 12 m onths, were you homeless or living in a intermediate (including now)? No 05/29/2024 IPV Inpatient Questions [...] Christy Lim - 06/03/2024 2:07 PM EDT [facility] FOLLOW UP: Patient Type: Emergency Department Did the patient participate in scheduled follow up?: No Reason patient did not follow up?: Lost to follow up [facility] attempted to contact Pt at [phone] (M). Number is disconnected, unable to reach Pt. Services have ended. MARKO Zuniga ED Recovery Support Pager # [phone] documented in this encounter Plan of Treatment Upcoming Encounters Date Type Department Care Team (Latest Contact Info) Description 08/01/2024 7:30 AM EDT Hospital Encounter [place] [address] Lisette Maldonado MD [facility] [place] [address] 08/01/2024 7:30 AM EDT - 08/01/2024 1:43 PM EDT [place] [phone] Lisette Maldonado MD [facility] [place] [address] @BYPASS GRAFT, FEM-ANT TIBIAL, -POST TIBIAL, -PERONEAL, -DP W\ SYNTHETIC CONDUIT (WRVU 23.) Scheduled Procedures Name Priority Associated Diagnoses Date/Ti me @BYPASS GRAFT, FEM-ANT TIBIA L, -POST TIBIAL, -PERONEAL, -DP W\ SYNTHETIC CONDUIT (WRVU 23.) [facility] 08/01/2024 7:30 AM EDT documented as of this encounter Visit Diagnoses Not on filedocumented in this encounter Care Teams Automotive Production Worker Relationship Specialty Start Date End Date None None PCP - General 05/27/24 documented as of this encounter
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
--- OUTSIDE RECORDS SUMMARY | 2024-07-25 15:01 | XMS_ITS | Encounter Summary ---
Author Organization [facility] Address [facility] Jean [place] [address] Care Team Providers Care Supervisor Rework Name Role Phone None Primary Care Provider Unavailabl e Encounter Details Date Type Department Care Team (Latest Contact Info) Description 07/20/2024 Travel Social History Tobacco Use Types Packs/Day Years Used Date Smoking Tobacco: Every Day Cigarettes 1 25 Started: 12/28/1986; Last attempted to quit: 12/28/2011 Alcohol Use Standard Drinks/Week Comments No 0 (1 standard drink = 0.6 oz pur e alcohol) [facility] Utilities Answer Date Recorded In the [...] any time in the past 12 m [facility], were you homeless or living [...] as of this encounter Plan of Treatment Upcoming Encounters Date Type Department Care Team (Latest Contact Info) Description 08/01/2024 7:30 AM EDT Hospital Encounter [place] [address] Lisette Maldonado MD [facility] [place] [address] 08/01/2024 7:30 AM EDT - 08/01/2024 1:43 PM EDT Surgery [place] [address] Lisette Maldonado MD [facility] [place] [address] @BYPASS GRAFT, FEM-ANT TIBIAL, -POST TIBIAL, -PERONEAL, -DP W\ SYNTHETIC CONDUIT (WRVU 23.66) Scheduled Procedures Name Priority Associated Diagnoses Date/Ti me @BYPASS GRAFT, FEM-ANT TIBIA L, -POST TIBIAL, -PERONEAL, -DP W\ SYNTHETIC CONDUIT (WRVU 23.66) CLTI 08/01/2024 7:30 AM EDT documented as of this encounter Visit Diagnoses Not on filedocumented in this encounter Care Teams Supervisor Rework Relationship Specialty Start Date End Date None None PCP - General 05/27/24 documented as of this encounter
--- OUTSIDE RECORDS SUMMARY | 2024-07-25 15:01 | XMS_ITS | Encounter Summary ---
[facility] [place] [address] Care Team Providers Care Software Engineer Developer Name Role Phone None Primary Care Provider Unavailabl e Reason for Visit * Reason Comments Hospital Transfer * Auth/Cert (Routine) Specialty Diagnoses / Procedures Referred By Contedy t Referred To Contact Diagnoses Peripheral artery disease Ischemic foot Procedures EMERGENCY IPI Thony Garcia MD [facility] [place] [address] [facility] Referral ID Status Reason Start Date Expiration Date Visits Re quested Visits Authorized [id number] 1 1 Encounter Details Date Type Department Care Team (Latest Contact Info) Description 07/14/2024 6:07 PM EDT - 07/21/2024 7:15 PM EDT Hospital Encounter Surgical Unit Level 4 [place] [id number] Thony Garcia MD [facility] [place] [address] Cellulitis of foot, left; Peripheral artery disease; Critical limb ischemia of left lower extremity Discharge Disposition: Home Social History Tobacco Use Types Packs/Day Years Used Date Smoking Tobacco: Every Day Cigarettes 1 25 Started: 12/28/1986; Last attempted to quit: 12/28/2011 Alcohol Use Standard Drinks/Week Comments No 0 (1 standard drink = 0.6 oz pur e alcohol) [facility] Utilities Answer Date Recorded In the past 12 months has [employer], oil, or water [employer] threatened to shut off services in your [...] any time in the past 12 [facility], were you homeless or living in a halfway (including now)? No 07/17/2024 IPV Inpatient Questions [...] this encounter Discharge Instructions * Discharge Instructions* Vibha Tierney, HOSPITALIST - 07/20/2024 10:13 AM EDT [facility] Interventional Radiology Post Angiography Instructions Procedure: VS [...] or hoildays, call and ask for the vice president of software development building supplies salesperson retail. OR Vascular Department at until 4:45pm. After 4:45pm call [phone] and ask for the Vascular resident building supplies salesperson retail. 10. If you are a diabetic and [...] will be scheduled for revascularization on 08/01/24. [place] receive a phone call from our OR coordinator with instructions for how to proceed. You will be on an antibiotic until we see you again. Prescriptions for the antibiotic and Blood thinner have been sent to your [facility] in [facility]. Anticoagulation: xarelto 20 mg daily Call your [...] For any problems or questions please call [phone] For issues on weeknights after 5pm and weekends please call [phone] and ask for the Vascular Fellow building supplies salesperson retail. Geovanna-for your diabetes! Most important thing is [...] juice or regular (not diet) soda 6 Liquid Lights small box of raisins 4 glucose tablets [...] HCP Completion of AVS * Thuy Jiang, HOSPITALIST - 07/21/2024 12:26 PM EDT Images from [...] Carb Controlled 60/60/75g Monitoring: BG Q4 Discharge Planning/prison diabetes care: Medications - Outpatient treatment regimen [...] EDT Physical Therapy Re-Evaluation Patient profile: Geovanna Viet Dixon Jr. is a 49 y.o. male [...] 3.51) performed by Thony Garcia MD at [facility] OR PRO CABG, ARTERY-VEIN, SINGLE 01/04/2012 @CABG, VENOUS & ARTERIAL GRAFT;SINGLE VEIN GRAFT performed by INNA TOVAR at [facility] OR PRO ENDOSCOPY W/VIDEO-ASST VEIN HARVEST, CABG 01/04/2012 ENDOSCOPIC HARVEST VEIN(S) FOR CABG performed by INNA TOVAR at [facility] OR Active Non-Hospital Problems Diagnosis [...] Anne PT, Doctor of Physical Therapy Pager: [phone] Physical Therapy Inpatient Rehabilitation Department * Carlos [...] Anne PT, Doctor of Physical Therapy Pager: [phone] Physical Therapy Inpatient Rehabilitation Department * Hailey iNck RN - 07/20/2024 10:00 AM EDT ANGIO NURSING DATABASE Name: Geovanna Dixon Jr. Date of : 1975 AGE: 49 y.o. Address: [address] [place] [address] Phone: [phone] (home) Mobile: Telephone Information: Referring Provider: Herminio [...] Peripheral artery disease I73.9 Date/Procedure Meds Given/Comments 9/12/24 VS LLE Arteriogram Ancef 2gm, Fentanyl 100 [...] Carb Controlled 60/60/75g Monitoring: BG Q4 Discharge Planning/prison diabetes care: Medications - Outpatient treatment regimen [...] - Needs referral to Outpatient Endocrinology per Dr.Capozza Supplies: Needs meter/strips/lancets on discharge, and updated [...] BID Cristiano Jones MD 5 mL at 07/19/24 2008 sodium chloride 0.9 % (flush) (BD PosiFlush [...] mg 10 mg Intravenous Q6H PRN Cristiano Jones MD No current Epic-ordered outpatient medications on [...] Component Value Date PT 10.6 05/28/2024 PTT 26 05/28/2024 INR 0.9 05/28/2024 Assessment: Geovanna Dixon Jr. is a 49 y.o. male with CLTI who presents to IR for LLE angiogram withpossible intervention. We have discussed the risks and benefits, patient would like to proceed. Plan for a right femoral arterial puncture for LLE angiogram with possible intervention Mal I ASA II Rubio Grimaldo MD Vascular Surgery [facility] Vascular Surgery Floor Pager: [phone] Vascular Surgery Consult Pager: [phone] * Cynthia Solorzano RN - 07/19/2024 11:42 AM EDT Handoff from DAVID Howard. Patient alert, VSS. 1147 Report called to DAVID Alonso. * Oli Call PT - 07/19/2024 10:33 AM EDT Physical Therapy Note Pt in the OR this morning, please update activity orders as appropriate post today's procedures. PT will follow up as appropriate. Thanks. Oli Call, ELDON Beeper# [phone] * María Carranza APRN - 07/19/2024 9:54 [...] patient has been previously admitted to the [facility] Vascular Surgery service on 05/28 - 06/02 [...] intact, nonfocal, follows commands Labs: Recent Labs 07/19/2434407/18/2433207/17/24341 WBC 12.45* 11.56* 11.02* HGB 13.6* 13.4* 13.1* HCT 41.0 40.2* 38.8* PLATELET 421* 392* 367* Recent Labs 07/19/24 03407/18/24 03307/17/24 03407/16/24 1539 NA 138 136 135 -- K 3.9 4.3 3.7 3.9 CL 103 101 103 -- CO2 23 23 21* -- BUN 7* 8* 9* -- CREATININE 0.56* 0.53* 0.49* -- PHOS 4.3 3.7 3.6 -- CALCIUM 9.6 9.2 9.1 -- Microbiology: Microbiology Results (last 7 days) Procedure Component Value - Date/Time MRSA PCR Screen [[id number]] (Normal) Collected: 07/16/24 1407 Lab Status: Final result Specimen: Swab from Nares Updated: 07/17/241803 MRSA PCR Not Detected Narrative: This test was performed using the Xpert MRSA NxG test kit and is run on the [employer] Dx System. This test is cleared by the U.S. Food and Drug Administration for clinical use and its performance characteristics have been verified by the [facility] [employer] [facility] [employer] [facility] at [facility]. This test was performed using the Xpert MRSA NxG test kit and is run on the [employer] Dx System. This test is cleared by the U.S. Food and Drug Administration for clinical use and its performance characteristics have been verified by the [facility] [employer] [facility] [employer] [facility] at [facility]. New Studies: ABIs 07/17/24: Findings: Right Pressure (mm Hg) ELEN Waveform TBI Brachial Artery 152 Dorsalis Pedis (Ankle) Artery 167 1.10 Triphasic Posterior Tibial (Ankle) Artery 168 1.11 Triphasic Great Toe 141 0.93 Left Pressure (mm Hg) ELEN Waveform TBI Brachial Artery 149 Dorsalis Pedis (Ankle) Artery 83 0.55 [place]-Biphasic Posterior Tibial (Ankle) Artery 87 0.57 Monophasic [...] who have questions please contact the health care technician that requested your imaging first. Electronically signed by: Geovanna Ray MD, [facility] ([phone]), at 07/14/2024 10:[address] Angiogram Aortic Lower Extremity Runoff (07/14) - [...] 2.6 cm vessel length at and just [id number], similar to prior. Anterior tibial artery: No [...] who have questions please contact the health care technician that requested your imaging first. Electronically signed by: Geovanna Ray MD, [facility] ([phone]), at 07/15/2024 1:13 AM Assessment & Plan: Geovanna Viet Dixon JrFlorencio is a 49 y.o. male with CAD [...] status: Full María Carranza APRN 07/19/2024 Pager: [phone] * Oli Call, PT - 07/18/2024 12:53 [...] 13 ; functional mobility OLI CALL, PT Pager:[phone] Physical Therapy Inpatient Rehabilitation Department * Lakeisha Berry, HOSPITALIST - 07/18/2024 10:00 AM EDT Glucose Management Team Inpatient Progress Note HPI Geovanna Dixon Jr. is a 49 y.o. male from [place], [place], with PMH significant for T2DM IDDM [...] management and to provide a review of intermodal customer service diabetes care. Original consult completed: 07/15 by [...] Carb Controlled 60/60/75g Monitoring: BG Q4 Discharge Planning/prison diabetes care: Medications - Outpatient treatment regimen [...] coordination with the consulting service. Lakeisha Berry, HOSPITALIST, DNP, -[facility] Inpatient Diabetes Management Team Team pager #[phone] (DRAFT) Diabetes Discharge Instructions & Recommendations Check [...] Physical Therapy Evaluation Patient profile: Geovanna Dixon Jr. [...] VEIN GRAFT performed by INNA TOVAR at [facility] OR PRO ENDOSCOPY W/VIDEO-ASST VEIN HARVEST, CABG 01/04/2012 ENDOSCOPIC HARVEST VEIN(S) FOR CABG performed by INNA TOVAR at [facility] OR Social History: Home set-up: [...] UEs and deep breathing Assessment: Geovanna Dixon was seen today for physical therapy evaluation. [...] Billing Code: evaluation OLI CALL, PT Pager: [phone] Physical Therapy Inpatient Rehabilitation Department * Lakeisha Berry, HOSPITALIST - 07/17/2024 2:00 PM EDT Glucose Management Team Inpatient Progress Note HPI Geovanna Dixon Jr. is a 49 y.o. male from [place], [place], with PMH significant for T2DM IDDM [...] management and to provide a review of [facility] diabetes care. Original consult completed: 07/15 by [...] Carb Controlled 60/60/75g Monitoring: BG Q4 Discharge Planning/prison diabetes care: Medications - Outpatient treatment regimen [...] with the consulting service. Lakeisha Berry APRN, DNP, -[facility] Inpatient Diabetes Management Team Team pager #[phone] * Hermila White APRN - 07/17/2024 7:45 [...] patient has been previously admitted to the [facility] Vascular Surgery service on 05/28 - 06/02 [...] WC insulin lispro 1-6 Units Subcutaneous Q4H [facility] insulin glargine (Lantus;Semglee) (100 unit/mL) subcutaneous [...] Labs 07/17/24 0342 07/16/24 0207 07/15/24 0045 07/14/24 1939 WBC 11.02* 11.08* 11.70* 8.69 HGB 13.1* 12.7* 12.1* 11.7* HCT 38.8* 36.6* 35.7* 34.5* PLATELET 367* 363* 322 313 Recent Labs 07/17/24 0342 07/16/24 1539 07/16/24 0415 07/16/24 0207 07/15/24 0045 07/14/249 NA 135 -- -- 135 132* 137 [...] who have questions please contact the health care technician that requested your imaging first. Electronically signed by: Geovanna Ray MD, [facility] ([phone]), at 07/14/2024 10:[address] Angiogram Aortic Lower Extremity Runoff (07/14) - [...] 2.6 cm vessel length at and just yacmn-tss-gyly, similar to prior. Anterior tibial artery: No [...] who have questions please contact the health care technician that requested your imaging first. Electronically signed by: Geovanna Ray MD, [facility] ([phone]), at 07/15/2024 1:13 AM Assessment & Plan: Geovanna Dixon Jr. 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) - Glargine 50 units nightly; meal associated lispro ICR 1:6g; moderate correction scale q4hrs - Diabetes management team consult, appreciate recommendations - Home meds: Losartan, metoprolol, protriptyline, PPI, venlafaxine - Full code Hermila White APRN 07/17/2024 Pager: [phone] * Dai Carter RN - 07/17/2024 2:43 AM EDT Assumed care [...] patient has been previously admitted to the [facility] Vascular Surgery service on 05/28 - 06/02 [...] intact, nonfocal, follows commands Labs: Recent Labs 07/16/2420607/15/245 07/14/241938 WBC 11.08* 11.70* 8.69 HGB 12.7* 12.1* 11.7* HCT 36.6* 35.7* 34.5* PLATELET 363* 322 313 Recent Labs 07/16/24 0415 07/16/2420607/15/245 07/14/241938 NA -- 135 132* 137 K 3.2* [...] who have questions please contact the health care technician that requested your imaging first. Electronically signed by: Geovanna Ray MD, [facility] ([phone]), at 07/14/2024 10:[address] Angiogram Aortic Lower Extremity Runoff (07/14) - [...] 2.6 cm vessel length at and just ibtgt-cio-dfys, similar to prior. Anterior tibial artery: No [...] who have questions please contact the health care technician that requested your imaging first. Electronically signed by: Geovanna Ray MD, [facility] ([phone]), at 07/15/2024 1:13 AM Assessment & Plan: Geovanna Dixon Jr. 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 Objective Temp: [36.8 ??C (98.2 [...] he will need outpatient follow up at [facility] endocrine clinic. He lives in [facility], but notes he has a truck and [...] primary team (vascular surgery). Dayanara Grover PGY-5 [facility] Endocrinology Associated attestation - Karen Reno MD [...] sent regarding elevated blood sugars * Hermila White APRN - 07/15/2024 2:16 PM EDT Images from [...] patient has been previously admitted to the [facility] Vascular Surgery service on 05/28 - 06/02 [...] or shortness of breath. - Last BM CONTENT DESIGNER Objective: Temp: [36.4 ??C (97.5 ??F)-36.7 ??C [...] intact, nonfocal, follows commands Labs: Recent Labs 07/15/244407/14/24 1939 WBC 11.70* 8.69 HGB 12.1* 11.7* HCT 35.7* 34.5* PLATELET 322 313 Recent Labs 07/15/2445 07/06/24 1939 NA 132* 137 K 3.7 3.7 CL [...] who have questions please contact the health care technician that requested your imaging first. Electronically signed by: Geovanna Ray MD, [facility] ([phone]), at 07/14/2024 10:[address] Angiogram Aortic Lower Extremity Runoff (07/14) - [...] 2.6 cm vessel length at and just bazff-lvk-ksva, similar to prior. Anterior tibial artery: No [...] who have questions please contact the health care technician that requested your imaging first. Electronically signed by: Geovanna Ray MD, [facility] ([phone]), at 07/15/2024 1:13 AM Assessment & Plan: Geovanna Dixon Jr. 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 Vascular Surgery H&P Note Patient Name: Geovanna Dixon Jr. MR#: [id number] : 1975 Admission Date: 07/14/2024 History of [...] patient has been previously admitted to the [facility] Vascular Surgery service on 05/28 - 06/02 [...] VEIN GRAFT performed by INNA TOVAR at [facility] OR PRO ENDOSCOPY W/VIDEO-ASST VEIN HARVEST, CABG 01/04/2012 ENDOSCOPIC HARVEST VEIN(S) FOR CABG performed by INNA TOVAR at [facility] OR Home Medications: Current Outpatient [...] Sublingual, DAILY PRN omeprazole 20 mg Tablet,Rapid DissolveDR Oral, DAILY AT NOON protriptyline (VIVACTIL) 10 [...] LACTATEVEN 1.1 No results for input(s): PHART, WIG2UGB, PO2ART, ABC9DJK in the last 72 hours. Studies: No [...] Dejah Marshall MD 07/15/2024 Vascular Surgery Service p.[phone] documented in this encounter Nursing Notes * [...] - 07/14/2024 4:47 PM EDT Sending Facility: [facility] Reason for Transfer: Vascular consult Report: Hx ischemic ulcer and DM T2. Has trouble getting to appointments at [facility] due to long drive. Decreased cap refill L left with streaking and decreased pulses. Lactate 3.2. Glucose 630. Given 10u of regular insulin, 500ml NS, 2g Cefepime, 1.5 vanc. 20g L AC. Vital Signs: Pulse: 97 B/P: 138/94 Resp: RA SPO2: 97% O2 LPM: RA GCS: 15 BGL: Temp: 36.8c Transporting Service: [place] Time of Departure: 1650 ETA: 1800 documented [...] Process Patient is insured through: Primary Insurance: [employer] MANAGED MEDICARE Payor: [employer] MANAGED MEDICARE / Plan: [facility] MANAGED MEDICARE PPO / Product Type: *No Product type* / Secondary Insurance: N/A Prescription Coverage: Yes This plan was formulated with input from patient and team. All are in agreement with plan. IMM on shared list for RS to deliver. Phu Kennedy RADIOLOGIST DIAGNOSTIC dental assistant instructor [phone] * Plan of Care - Carlos Enrique Knowles RN - 07/21/2024 6:53 AM EDT OUTCOME EVALUATION NOTE: OUTCOME SUMMARY: Patient AOx4, VSS on RA. Denies nausea/vomiting, CP, SOB, and numbness/tingling. Pain controlled w/scheduled and PRN medications, see MAR. Dressing to L foot and R groin [...] (Interventions Implemented as Appropriate) Flowsheets (Taken 07/20/2024 9016) Plan of Care Reviewed With: patient Progress: no change Goal: Patient-Specific Goal (Individualized) Outcome: Ongoing (Interventions Implemented as Appropriate) Flowsheets (Taken 07/20/2024 165) Anxieties, Fears or Concerns: none Individualized Care [...] patient has been previously admitted to the [facility] Vascular Surgery service on 05/28 - 06/02 [...] MEDICARE Payor: [employer] MANAGED MEDICARE / Plan: [employer] MANAGED MEDICARE PPO / Product Type: *No [...] 0 BMs this shift. 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 Pt ambulated to the restroom overnight with [...] utilized * Consult Note - Lori Lane [facility] - 07/18/2024 10:46 AM EDT The pharmacist-managed [...] have. Alternately, during off-hours you may call [phone] to contact a pharmacist. * Plan of [...] patient has been previously admitted to the [facility] Vascular Surgery serviceon 05/28 - 06/02 of [...] VEIN GRAFT performed by INNA TOVAR at [facility] OR PRO ENDOSCOPY W/VIDEO-ASST VEIN HARVEST, CABG 01/04/2012 ENDOSCOPIC HARVEST VEIN(S) FOR CABG performed by INNA TOVAR at [facility] OR Active Non-Hospital Problems Diagnosis [...] only Total Minutes, Occupational Therapy: 23 (evaluation ([id number])) OT Evaluation Code Rationale: Diagnosis & Pertinent Co-Morbidities affecting Plan of Care: see PMHx Occupational Profile & Client History: Brief Expanded Extensive X Assessment of Occupational Performance: 1-3 performance deficits X 3-5 performance deficits 5 + performance deficits Clinical Decision Making: Low Moderate High X Clinical decision making of low complexity using standardized patient assessment instrument and measurable assessment of functional outcome. Pager: [phone] Camille Holloway OT 07/17/2024 Occupational Therapy Rehabilitation [...] surrogate would be surrogate decision maker per [place] surrogate decision making law. (Only good for 180 days) Any patient receiving care in [place] must abide by [place] law. The hierarchy for surrogate decision making [...] (i) The agent with financial power of radio operator or a conservator appointed in accordance with [...] homeless or living in a halfway (including now)?: No In the past 12 months has the [employer], gas, oil, or water [employer] threatened to shut off services in your [...] Current DME: none Home Address confirmed as: [address] [place] [address] Social & Family Supports: All names listed [...] points: Addiction likely Other Pertinent/Service Specific Information: recovery specialist to see patient. Hx of cocaine use Health/Prescription Coverage: Primary nsurance: [employer] MANAGED MEDICARE Payor: [employer] MANAGED MEDICARE / Plan: [employer] MANAGED MEDICARE PPO / Product Type: *No Product type* / Secondary Insurance: N/A ONLY if patient has Medicare A&B - Does this patient have secondary insurance?: No ; Why not?: Managed Medicare Prescription Coverage: Yes Preferred Pharmacy: [id number] - [place], [place] - [address] [facility] [address] [place] [id number] [id number] - [place], [place] - [address] [place] [id number] [place] Status: Patient is a : No Primary [...] dry andstable, no open areas, no drainage. [place] with povidone- iodine daily and leave open [...] eD-H. Please contact Mara Olson RN on eD secure chat or the wound care team on pager [phone] with skin and wound care concerns or questions. * Consult Note - Cynthia Carreon - 07/17/2024 11:00 AM EDT PT sleeping RC will return. * Consult Note - Angel Oliva MD - 07/17/2024 8:52 AM EDT Images from the original note were not included. [facility] Cardiovascular Medicine [place] [id number] CARDIOLOGY CONSULT NOTE Date of Consultation: 07/17/2024 [...] tobacco/substance abuse, narcolepsy/cataplexy, who initially presented to [facility] ED with left foot wounds/cellulitis and concern for limb ischemia who was transferred to [facility] for vascular surgery assessment. Recent admit 05/2024 [...] patient has been previously admitted to the [facility] Vascular Surgery service on 05/28 - 06/02 [...] insulin lispro 1-6 Units Subcutaneous Q4H JOSE piperacillin-tazobactam 3.375 g Intravenous Q8H senna-docusate 2 tablet Oral BID aspirin EC 81 mg Oral Daily atorvastatin 80 mg Oral QPM losartan 50 mg Oral Daily metoprolol succinate XL 25 mg Oral Daily pantoprazole EC 40 mg Oral Daily venlafaxine 225 mg Oral Daily sodium chloride 0.9 % (flush) 5 mL Intravenous BID vancomycin 1.25 g Intravenous Q8H heparin (porcine) infusion 1,700 Units/hr (07/17/24621) Physical Exam: Last value Range last 8 [...] Surgical Unit Level 4 Wing D at [facility] ED to Hosp-Admission (Discharged) from 05/28/2024 in Surgical Unit Level 4 Wing D at [facility] Weight 99.8 kg (220 lb) 1 07/14/2024 2226 102.1 kg (225 lb 1.4 oz) 1 [...] tobacco/substance abuse, narcolepsy/cataplexy, who initially presented to [facility] ED with left foot wounds/cellulitis and concern for limb ischemia [facility]. Recent admit 05/2024 for short segment left popliteal occlusion; he was treated with a heparin drip and antibiotics for cellulitis with improvement. He was discharged on Xarelto 2.5mg BID, aspirin and short course of Augmentin with instructions to be seen in 1 mo [facility], which he did not show for [...] of an occluded SVG-RPDA graft with a SERVICE REPRESENTATIVE of his right coronary artery. He has [...] questions or concerns arise. Angel Oliva MD, [facility] Staff Hide Handler * Plan of Care - Lauren Mitchell [...] management and to provide a review of fci diabetes care. Diabetes History: Geovanna Dixon Jr. [...] he will need outpatient follow up at [facility] endocrine clinic. He lives in [facility], but notes he has a truck and [...] primary team (vascular surgery). Dayanara Grover PGY-5 [facility] Endocrinology Associated attestation - Karen Reno MD [...] seen eye doctor in years, his triglycerides [id number] was very high, needs recheck and aggressive [...] AM EDT Hospital Encounter [place] [address] Lisette Maldonado MD [facility] [place] [address] 08/01/2024 7:30 AM EDT - 08/01/2024 1:43 PM EDT Surgery [place] [address] Lisette Maldonado MD [facility] [place] [address] @[employer]PASS GRAFT, FEM-ANT TIBIAL, -POST TIBIAL, -PERONEAL, [...] Procedure Note - Dolly Dan MD / Joseph, Anabel Riggs MD - 07/20/2024 10:41 AM EDTThis note [...] note, patient has beenpreviously admitted to the [facility] V[facility] Surgery service on 05/28 - 06/02 [...] to change, which prompted him to present [facility]. Reports some pain in his left [...] 9:51 AM EDT Amputation Toe, Mt-P Jt ([id number]) 07/19/2024 8:57 AM EDT peripheral artery disease [...] * POC, GLUCOSE (07/21/2024 3:43 PM EDT) Glucometer, POC 111 65 - 199 mg/dL 07/21/2024 3:44 PM EDT [facility] Comment:Supplemental ranges: <140 mg/dL before meals <180 mg/dL all other times of the day. Blood CAPILLARY BLOOD / Unknown 07/21/2024 3:43 PM EDT 07/21/2024 3:44 PM EDT Thony Garcia MD POINT OF CARE TEST O GILDA Performing Organization Address [facility] Co de Phone Number [facility] [place] [address] * (ABNORMAL) POC, GLUCOSE (07/21/2024 12:18 PM EDT) Glucometer, POC 247(H) 65 - 199 mg/dL 07/21/2024 12:20 PM EDT [facility] Comment:Supplemental ranges: <140 mg/dL before meals <180 mg/dL all other times of the day. Blood CAPILLARY BLOOD / Unknown 07/21/2024 12:18 PM EDT 07/21/2024 12:20 PM EDT Thony Garcia MD POINT OF CARE TEST O GILDA Performing Organization Address [facility] Co de Phone Number [facility] [place] [address] * POC, GLUCOSE (07/21/2024 8:37 AM EDT) Glucometer, POC 163 65 - 199 mg/dL 07/21/2024 8:38 AM EDT [facility] Comment:Supplemental ranges: <140 mg/dL before meals <180 mg/dL all other times of the day. Blood CAPILLARY BLOOD / Unknown 07/21/2024 8:37 AM EDT 07/21/2024 8:38 AM EDT Thony Garcia MD POINT OF CARE TEST O GILDA [facility] [place] [address] * (ABNORMAL) Basic Metabolic Panel (07/21/2024 5:55 AM EDT) Glucose 172 65 - 199 mg/dL 07/21/2024 6:45 AM EDT [facility] Comment:Glucose Concentratio n >=200 mg/dL plus symptoms is consistent with Diabetes Mellitus. Blood Urea Nitrogen 12 10 - 20 mg/dL 07/21/2024 6:45 AM EDT [facility] Creatinine 0.55(L) 0.80 - 1.50 mg/dL 07/21/2024 6:45 AM EDT [facility] Sodium 138 135 - 145 mMol/L 07/[facility] Potassium 4.1 3.5 - 5.0 mMol/L 07/21/2024 6:45 AM EDT [facility] Chloride 103 98 - 107 mMol/L 07/21/2024 6:[facility] Carbon Dioxide 23 22 - 31 mMol/L 07/21/2024 6:45 AM [facility] Anion Gap 12 5 - 15 mMol/L 07/21/2024 6:45 [facility] Calcium 9.4 8.5 - 10.5 mg/dL 07/21/2024 6:45 [facility] Est Glomerular Filtration Rate - Male 121 mL/min/1. 73 m?? 07/21/2024 6:45 AM [facility] Comment: This patient's estimated [...] AM EDT Thony Garcia MD CHEMISTRY ORDERABLES [facility] [place] [address] * (ABNORMAL) CBC (with Diff) (07/21/2024 5:55 AM EDT) White Blood Cell 10.11(H) 4.00 - 9.50 x10(3)/mc L 07/21/2024 6:17 AM EDT [facility] Red Blood Cell 4.52(L) 4.58 - 5.54 x10(6)/mc L 07/21/2024 6:17 AM EDT [facility] Hemoglobin 13.2(L) 13.7 - 16.5 g/dL 07/21/2024 6:17 AM T [facility] Hematocrit 39.7(L) 40.5 - 48.5 % 07/21/2024 6:17 AM T [facility] Mean Cell Volume 87.8 82.9 - 93.1 fL 07/21/2024 6:17 AM [facility] Mean Cell Hemoglobin 29.2 27.5 - 32.1 pg 07/21/2024 6:17 AM EDT [facility] Mean Cell Hemoglobin Concentration 33.2 32.0 - 35.7 g/dL 07/21/2024 6:17 AM [facility] Platelet 405(H) 145 - 357 x10(3)/mc L 07/21/2024 6:[facility] Mean Platelet Volume 9.3 7.6 - 12.9 fL 07/21/2024 6:17 AM [facility] RDW Standard Deviation 42.2 36.0 - 45.0 fL 07/21/2024 6:17 AM [facility] RDW coefficient of variation 13.2 11.4 - 13.8 % 07/21/2024 6:17 AM [facility] NRBC% auto 0.0 % 07/21/2024 6:17 AM [facility] NRBC Absolute 0.00 0.00 - 0.00 x10(3)/mc L 07/21/2024 6:17 AM [facility] Neutrophil % 64.5 % 07/21/2024 6:17 AM [facility] Neutrophil Absolute (ANC) - Automated 6.52(H) 1.70 - 6.10 x10(3)/mc L 07/21/2024 6:17 AM [facility] Lymph % 24.3 % 07/21/2024 6:17 AM [facility] Lymph Absolute 2.46 0.90 - 3.20 x10(3)/mc L 07/21/2024 6:17 AM [facility] Monocyte % 8.4 % 07/21/2024 6:17 AM [facility] Monocyte Absolute 0.85 0.30 - 0.90 x10(3)/mc L 07/21/2024 6:17 AM [facility] Eos % 1.6 % 07/21/2024 6:17 AM [facility] Eos Absolute 0.16 0.00 - 0.40 x10(3)/mc L 07/21/2024 6:17 AM [facility] Basophil % 0.7 % 07/21/2024 6:17 AM [facility] Baso Absolute 0.07 0.00 - 0.10 x10(3)/mc L 07/21/2024 6:17 AM [facility] Immature Gran % 0.5 % 6:17 AM [facility] Immature Gran Absolute 0.05(H) 0.00 - 0.04 x10(3)/mc L 07/21/2024 6:17 AM EDT [facility] Blood VENOUS BLOOD SPECIMEN / Unknown IP Care Team Draw / Unknown 07/21/2024 5:55 AM EDT 07/21/2024 6:13 AM EDT Thony Garcia MD HEMATOLOGY ORDERABLE S [facility] [place] [address] * Phosphorus (07/21/2024 5:55 AM EDT) Phosphorus 3.9 2.5 - 4.5 mg/dL 07/21/2024 6:45 AM EDT [facility] Blood VENOUS BLOOD SPECIMEN / Unknown IP Care Team Draw / Unknown 07/21/2024 5:55 AM EDT 07/21/2024 6:13 AM EDT Thony Garcia MD CHEMISTRY ORDERABLES Performing Organization Address City/[facility]/ZIP Co de Phone Number [facility] [place] [address] * Magnesium (07/21/2024 5:55 AM EDT) Magnesium 0.82 0.69 - 1.07 mMol/L 07/21/2024 6:45 AM EDT [facility] Blood VENOUS BLOOD SPECIMEN / Unknown IP Care Team Draw / Unknown 07/21/2024 5:55 AM EDT 07/21/2024 6:13 AM EDT Thony Garcia MD CHEMISTRY ORDERABLES Performing Organization Address City/[facility]/ZIP Co de Phone Number [facility] [place] [address] * POC, GLUCOSE (07/21/2024 3:57 AM EDT) Glucometer, POC 163 65 - 199 mg/dL 07/21/2024 4:01 AM EDT [facility] Comment:Supplemental ranges: <140 mg/dL before meals <180 mg/dL all other times of the day. Blood CAPILLARY BLOOD / Unknown 07/21/2024 3:57 AM EDT 07/21/2024 4:01 AM EDT Thony Garcia MD POINT OF CARE TEST O RDERAHERNANDEZ Performing Organization Address City/[facility]/ZIP Co de Phone Number [facility] [place] [address] * POC, GLUCOSE (07/20/2024 11:54 PM EDT) Glucometer, POC 190 65 - 199 mg/dL 07/20/2024 11:58 PM EDT [facility] Comment:Supplemental ranges: <140 mg/dL before meals <180 mg/dL all other times of the day. Blood CAPILLARY BLOOD / Unknown 07/20/2024 11:54 PM EDT 07/20/2024 11:58 PM EDT Thony Garcia MD POINT OF CARE TEST O GILDA Performing Organization Address [facility] Co de Phone Number [facility] [place] [address] * POC, GLUCOSE (07/20/2024 8:17 PM EDT) Glucometer, POC 166 65 - 199 mg/dL 07/20/2024 8:17 PM EDT [facility] Comment:Supplemental ranges: <140 mg/dL before meals <180 mg/dL all other times of the day. Blood CAPILLARY BLOOD / Unknown 07/20/2024 8:17 PM EDT 07/20/2024 8:18 PM EDT Thony Garcia MD POINT OF CARE TEST O RDERAHERNANDEZ Performing Organization Address City/[facility]/ZIP Co de Phone Number [facility] [place] [address] * (ABNORMAL) POC, GLUCOSE (07/20/2024 3:51 PM EDT) Glucometer, POC 218(H) 65 - 199 mg/dL 07/20/2024 3:51 PM EDT [facility] Comment:Supplemental ranges: <140 mg/dL before meals <180 mg/dL all other times of the day. Blood CAPILLARY BLOOD / Unknown 07/20/2024 3:51 PM EDT 07/20/2024 3:51 PM EDT Thnoy Garcia MD POINT OF CARE TEST O GILDA Performing Organization Address [facility] Co de Phone Number [facility] [place] [address] * POC, GLUCOSE (07/20/2024 10:55 AM EDT) Glucometer, POC 96 65 - 199 mg/dL 07/20/2024 10:56 AM EDT [facility] Comment:Supplemental ranges: <140 mg/dL before meals <180 mg/dL all other times of the day. Blood CAPILLARY BLOOD / Unknown 07/20/2024 10:55 AM EDT 07/20/2024 10:56 AM EDT Thony Garcia MD POINT OF CARE TEST O GILDA Performing Organization Address [facility] Co de Phone Number [facility] [place] [address] * Vein Map Arm, Bilateral (07/20/2024 10:48 AM EDT) VB Text Report Department: Vascular Surgery Lab Patient: [id number] (GEOVANNA DXION) CPT: 80576 Referring Physician: THONY GARCIA ?? Indications: Patient [...] Garcia MD VASCULAR ORDERABLES Performing Organization Address [facility] de Phone Number [facility] * POC, GLUCOSE (07/20/2024 8:12 AM EDT) [facility] Signature Glucometer, POC 119 65 - 199 mg/dL 07/20/2024 8:12 AM EDT [facility] Comment:Supplemental ranges: <140 mg/dL before meals <180 mg/dL all other times of the day. Blood CAPILLARY BLOOD / Unknown 07/20/2024 8:12 AM EDT 07/20/2024 8:12 AM EDT Thony Garcia MD POINT OF CARE TEST O RDERABLES Performing Organization Address [facility] Co de Phone Number [facility] [place] [address] * (ABNORMAL) CBC (with Diff) (07/20/2024 3:42 AM EDT) White Blood Cell 16.61(H) 4.00 - 9.50 x10(3)/mc L 07/20/2024 4:23 AM [facility] Red Blood Cell 4.44(L) 4.58 - 5.54 x10(6)/mc L 07/20/2024 4:23 AM [facility] Hemoglobin 13.0(L) 13.7 - 16.5 g/dL 07/20/2024 4:23 AM [facility] Hematocrit 39.2(L) 40.5 - 48.5 % 07/20/2024 4:23 AM [facility] Mean Cell Volume 88.3 82.9 - 93.1 fL 07/20/2024 4:23 AM [facility] Mean Cell Hemoglobin 29.3 27.5 - 32.1 pg 07/20/2024 4:23 AM [facility] Mean Cell Hemoglobin Concentration 33.2 32.0 - 35.7 g/dL 07/20/2024 4:23 AM [facility] Platelet 458(H) 145 - 357 x10(3)/mc L 07/20/2024 4:23 AM [facility] Mean Platelet Volume 9.5 7.6 - 12.9 fL 07/20/2024 4:23 AM [facility] RDW Standard Deviation 42.5 36.0 - 45.0 fL 07/20/2024 4:23 AM [facility] RDW coefficient of variation 13.2 11.4 - 13.8 % 07/20/2024 4:23 AM [facility] NRBC% auto 0.0 % 07/20/2024 4:23 AM [facility] NRBC Absolute 0.00 0.00 - 0.00 x10(3)/mc L 07/20/2024 4:23 AM [facility] Neutrophil % 74.2 % 07/20/2024 4:23 AM EDT [facility] Neutrophil Absolute (ANC) - Automated 12.32(H) 1.70 - 6.10 x10(3)/mc L 07/20/2024 4:23 AM EDT [facility] Lymph % 16.5 % 07/20/2024 4:23 AM EDT [facility] Lymph Absolute 2.74 0.90 - 3.20 x10(3)/mc L 07/20/2024 4:23 AM EDT [facility] Monocyte % 7.5 % 07/20/2024 4:23 AM EDT [facility] Monocyte Absolute 1.25(H) 0.30 - 0.90 x10(3)/mc L 07/20/2024 4:23 AM EDT [facility] Eos % 0.8 % 07/20/2024 4:23 AM EDT [facility] Eos Absolute 0.14 0.00 - 0.40 x10(3)/mc L 07/20/2024 4:23 AM EDT [facility] Basophil % 0.4 % 07/20/2024 4:23 AM EDT [facility] Baso Absolute 0.06 0.00 - 0.10 x10(3)/mc L 07/20/2024 4:23 AM EDT [facility] Immature Gran % 0.6 % 4:23 AM EDT [facility] Immature Gran Absolute 0.10(H) 0.00 - 0.04 x10(3)/mc L 07/20/2024 4:23 AM EDT [facility] Blood VENOUS BLOOD SPECIMEN / Unknown IP Care Team Draw / Unknown 07/20/2024 3:42 AM EDT 07/20/2024 4:09 AM EDT Thony Garcia MD HEMATOLOGY ORDERABLE S [facility] [place] [address] * (ABNORMAL) POC, GLUCOSE (07/20/2024 3:41 AM EDT) Glucometer, POC 204(H) 65 - 199 mg/dL 07/20/2024 3:41 AM EDT [facility] Comment:Supplemental ranges: <140 mg/dL before meals <180 mg/dL all other times of the day. Blood CAPILLARY BLOOD / Unknown 07/20/2024 3:41 AM EDT 07/20/2024 3:41 AM EDT Thony Garcia MD POINT OF CARE TEST O RDERAHERNANDEZ [facility] [place] [address] * (ABNORMAL) Basic Metabolic Panel (07/20/2024 3:41 AM EDT) Glucose 209(H) 65 - 199 mg/dL 07/20/2024 5:00 AM EDT [facility] Comment:Glucose Concentratio n >=200 mg/dL plus symptoms is consistent with Diabetes Mellitus. Blood Urea Nitrogen 12 10 - 20 mg/dL 07/20/2024 5:00 AM EDT [facility] Creatinine 0.53(L) 0.80 - 1.50 mg/dL 07/20/2024 5:00 AM EDT [facility] Sodium 135 135 - 145 mMol/L 07/20/2024 5:00 AM EDT [facility] Potassium 4.2 3.5 - 5.0 mMol/L 07/20/2024 5:00 AM EDT [facility] Chloride 102 98 - 107 mMol/L 07/20/2024 5:[facility] Carbon Dioxide 21(L) 22 - 31 mMol/L 07/20/2024 5:00 AM EDT [facility] Anion Gap 12 5 - 15 mMol/L 07/20/2024 5:00 AM EDT [facility] Calcium 9.4 8.5 - 10.5 mg/dL 07/20/2024 5:00 AM EDT [facility] Est Glomerular Filtration Rate - Male 122 mL/min/1. 73 m?? 07/20/2024 5:00 AM EDT [facility] Comment: This patient's estimated [...] AM EDT Thony Garcia MD CHEMISTRY ORDERABLES [facility] [place] [address] * Phosphorus (07/20/2024 3:41 AM EDT) Phosphorus 3.4 2.5 - 4.5 mg/dL 07/20/2024 4:40 AM EDT [facility] Blood VENOUS BLOOD SPECIMEN / Unknown IP Care Team Draw / Unknown 07/20/2024 3:41 AM EDT 07/20/2024 4:09 AM EDT Thony Garcia MD CHEMISTRY ORDERABLES [facility] [place] [address] * Magnesium (07/20/2024 3:41 AM EDT) Magnesium 0.90 0.69 - 1.07 mMol/L 07/20/2024 4:40 AM EDT [facility] Blood VENOUS BLOOD SPECIMEN / Unknown IP Care Team Draw / Unknown 07/20/2024 3:41 AM EDT 07/20/2024 4:09 AM EDT Thony Garcia MD CHEMISTRY ORDERABLES Performing Organization Address City/[facility]/ZIP Co de Phone Number [facility] [place] [address] * (ABNORMAL) POC, GLUCOSE (07/20/2024 12:56 AM EDT) Glucometer, POC 342(H) 65 - 199 mg/dL 07/20/2024 12:58 AM EDT [facility] Comment:Supplemental ranges: <140 mg/dL before meals <180 mg/dL all other times of the day. Blood CAPILLARY BLOOD / Unknown 07/20/2024 12:56 AM EDT 07/20/2024 12:58 AM EDT Thony Garcia MD POINT OF CARE TEST O RDERABLES Performing Organization Address [facility] Co de Phone Number [facility] [place] [address] * (ABNORMAL) POC, GLUCOSE (07/19/2024 11:04 PM EDT) Glucometer, POC 296(H) 65 - 199 mg/dL 07/19/2024 11:05 PM EDT [facility] Comment:Supplemental ranges: <140 mg/dL before meals <180 mg/dL all other times of the day. Blood CAPILLARY BLOOD / Unknown 07/19/2024 11:04 PM EDT 07/19/2024 11:05 PM EDT Thony Garcia MD POINT OF CARE TEST O RDERABLES Performing Organization Address City/[facility]/ZIP Co de Phone Number [facility] [place] [address] * (ABNORMAL) POC, GLUCOSE (07/19/2024 7:38 PM EDT) Glucometer, POC 251(H) 65 - 199 mg/dL 07/19/2024 7:39 PM EDT [facility] Comment:Supplemental ranges: <140 mg/dL before meals <180 mg/dL all other times of the day. Blood CAPILLARY BLOOD / Unknown 07/19/2024 7:38 PM EDT 07/19/2024 7:39 PM EDT Tohny Garcia MD POINT OF CARE TEST O RDERABLES Performing Organization Address City/[facility]/ZIP Co de Phone Number [facility] [place] [address] * POC, GLUCOSE (07/19/2024 4:48 PM EDT) Glucometer, POC 171 65 - 199 mg/dL 07/19/2024 4:49 PM EDT [facility] Comment:Supplemental ranges: <140 mg/dL before meals <180 mg/dL all other times of the day. Blood CAPILLARY BLOOD / Unknown 07/19/2024 4:48 PM EDT 07/19/2024 4:49 PM EDT Thony Garcia MD POINT OF CARE TEST O RDERAHERNANEDZ Performing Organization Address City/[facility]/ZIP Co de Phone Number [facility] [place] [address] * POC, GLUCOSE (07/19/2024 12:21 PM EDT) Glucometer, POC 143 65 - 199 mg/dL 07/19/2024 12:22 PM EDT [facility] Comment:Supplemental ranges: <140 mg/dL before meals <180 mg/dL all other times of the day. Blood CAPILLARY BLOOD / Unknown 07/19/2024 12:21 PM EDT 07/19/2024 12:22 PM EDT Thony Garcia MD POINT OF CARE TEST O RDERABLES Performing Organization Address [facility]/ZIP Co de Phone Number [facility] [place] [address] * POC, GLUCOSE (07/19/2024 11:24 AM EDT) Glucometer, POC 111 65 - 199 mg/dL 07/19/2024 11:24 AM EDT [facility] Comment:Supplemental ranges: <140 mg/dL before meals <180 mg/dL all other times of the day. Blood CAPILLARY BLOOD / Unknown 07/19/2024 11:24 AM EDT 07/19/2024 11:24 AM EDT Thony Garcia MD POINT OF CARE TEST O RDERABLES Performing Organization Address [facility]/ZIP Co de Phone Number [facility] [place] [address] * Anaerobic Culture (07/19/2024 9:51 AM EDT) Anaerobic Culture No anaerobic organisms isolated 07/23/2024 3:24 PM EDT [facility] Bone STRUCTURE OF TOE OF LEFT FOOT / Unknown 07/19/2024 9:51 AM EDT Comment:PERIPHERAL ARTERY DI SEASE Thony Garcia MD MICROBIOLOGY - GENER AL ORDERABLES Performing Organization Address [facility]/ZIP Co de Phone Number [facility] [place] [address] * Bone Culture (07/19/2024 9:51 AM EDT) Bone Culture No growth 07/23/2024 12:36 PM EDT [facility] Gram Stain No neutrophils seen 07/23/2024 12:36 PM EDT [facility] Gram Stain No microorganisms seen 07/23/2024 12:36 PM EDT [facility] Bone STRUCTURE OF TOE OF LEFT FOOT / Unknown 07/19/2024 9:51 AM EDT Comment:PERIPHERAL ARTERY DI SEASE Thony Garcia MD MICROBIOLOGY - GENER AL ORDERABLES Performing Organization Address [facility] Co de Phone Number [facility] [place] [address] * POC, GLUCOSE (07/19/2024 7:21 AM EDT) Glucometer, POC 195 65 - 199 mg/dL 07/19/2024 7:22 AM EDT [facility] Comment:Supplemental ranges: <140 mg/dL before meals <180 mg/dL all other times of the day. Blood CAPILLARY BLOOD / Unknown 07/19/2024 7:21 AM EDT 07/19/2024 7:22 AM EDT Thony Garcia MD POINT OF CARE TEST O RDERABLES Performing Organization Address [facility] de Phone Number [facility] [place] [address] * Heparin (unfractionated) Level (07/19/2024 6:29 AM EDT) UF Heparin 0.42 IU/mL 07/19/2024 6:44 AM EDT [facility] Comment: Heparin (anti-Xa) levels [...] EDT Thony Garcia MD HEMATOLOGY ORDERABLE S [facility] [place] [address] * POC, GLUCOSE (07/19/2024 4:24 AM EDT) Glucometer, POC 118 65 - 199 mg/dL 07/19/2024 4:24 AM EDT [facility] Comment:Supplemental ranges: <140 mg/dL before meals <180 mg/dL all other times of the day. Blood CAPILLARY BLOOD / Unknown 07/19/2024 4:24 AM EDT 07/19/2024 4:24 AM EDT Thony Garcia MD POINT OF CARE TEST O RDERABLES Performing Organization Address City/[facility]/ZIP Co de Phone Number [facility] [place] [address] * (ABNORMAL) Basic Metabolic Panel (07/19/2024 3:45 AM EDT) Glucose 117 65 - 199 mg/dL 07/19/2024 4:40 AM EDT [facility] Comment:Glucose Concentratio n >=200 mg/dL plus symptoms is consistent with Diabetes Mellitus. Blood Urea Nitrogen 7(L) 10 - 20 mg/dL 07/19/2024 4:40 AM EDT [facility] Creatinine 0.56(L) 0.80 - 1.50 mg/dL 07/19/2024 4:40 AM EDT [facility] Sodium 138 135 - 145 mMol/L 07/19/2024 4:40 AM EDT [facility] Potassium 3.9 3.5 - 5.0 mMol/L 07/19/2024 4:40 AM EDT [facility] Chloride 103 98 - 107 mMol/L 07/19/2024 4:40 AM EDT [facility] Carbon Dioxide 23 22 - 31 mMol/L 07/19/2024 4:40 AM EDT [facility] Anion Gap 12 5 - 15 mMol/L 07/19/2024 4:40 AM EDT [facility] Calcium 9.6 8.5 - 10.5 mg/dL 07/19/2024 4:40 AM EDT [facility] Est Glomerular Filtration Rate - Male 120 mL/min/1. 73 m?? 07/19/2024 4:40 AM EDT [facility] Comment: This patient's estimated [...] AM EDT Thony Garcia MD CHEMISTRY ORDERABLES [facility] [place] [address] * (ABNORMAL) CBC (with Diff) (07/19/2024 3:45 AM EDT) White Blood Cell 12.45(H) 4.00 - 9.50 x10(3)/mc L 07/19/2024 4:09 AM EDT [facility] Red Blood Cell 4.72 4.58 - 5.54 x10(6)/mc L 07/19/2024 4:09 AM EDT [facility] Hemoglobin 13.6(L) 13.7 - 16.5 g/dL 07/19/2024 4:09 AM [facility] Hematocrit 41.0 40.5 - 48.5 % 07/19/2024 4:09 AM [facility] Mean Cell Volume 86.9 82.9 - 93.1 fL 07/19/2024 4:09 AM [facility] Mean Cell Hemoglobin 28.8 27.5 - 32.1 pg 07/19/2024 4:09 AM [facility] Mean Cell Hemoglobin Concentration 33.2 32.0 - 35.7 g/dL 07/19/2024 4:09 AM [facility] Platelet 421(H) 145 - 357 x10(3)/mc L 07/19/2024 4:09 AM [facility] Mean Platelet Volume 9.4 7.6 - 12.9 fL 07/19/2024 4:09 AM [facility] RDW Standard Deviation 41.3 36.0 - 45.0 fL 07/19/2024 4:09 AM [facility] RDW coefficient of variation 13.1 11.4 - 13.8 % 07/19/2024 4:09 AM [facility] NRBC% auto 0.0 % 07/19/2024 4:09 AM [facility] NRBC Absolute 0.00 0.00 - 0.00 x10(3)/mc L 07/19/2024 4:09 AM [facility] Neutrophil % 66.6 % 07/19/2024 4:09 AM [facility] Neutrophil Absolute (ANC) - Automated 8.29(H) 1.70 - 6.10 x10(3)/mc L 07/19/2024 4:09 AM [facility] Lymph % 22.6 % 07/19/2024 4:09 AM [facility] Lymph Absolute 2.81 0.90 - 3.20 x10(3)/mc L 07/19/2024 4:09 AM EDT [facility] Monocyte % 7.5 % 07/19/2024 4:09 AM EDT [facility] Monocyte Absolute 0.93(H) 0.30 - 0.90 x10(3)/mc L 07/19/2024 4:09 AM EDT [facility] Eos % 1.9 % 07/19/2024 4:09 AM EDT [facility] Eos Absolute 0.24 0.00 - 0.40 x10(3)/mc L 07/19/2024 4:09 AM EDT [facility] Basophil % 0.8 % 07/19/2024 4:09 AM EDT [facility] Baso Absolute 0.10 0.00 - 0.10 x10(3)/mc L 07/19/2024 4:09 AM EDT [facility] Immature Gran % 0.6 % 4:09 AM EDT [facility] Immature Gran Absolute 0.08(H) 0.00 - 0.04 x10(3)/mc L 07/19/2024 4:09 AM EDT [facility] Blood VENOUS BLOOD SPECIMEN / Unknown IP Care Team Draw / Unknown 07/19/2024 3:45 AM EDT 07/19/2024 4:00 AM EDT Thony Garcia MD HEMATOLOGY ORDERABLE S [facility] [place] [address] * Phosphorus (07/19/2024 3:45 AM EDT) Phosphorus 4.3 2.5 - 4.5 mg/dL 07/19/2024 4:40 AM EDT [facility] Blood VENOUS BLOOD SPECIMEN / Unknown IP Care Team Draw / Unknown 07/19/2024 3:45 AM EDT 07/19/2024 4:00 AM EDT Thony Garcia MD CHEMISTRY ORDERABLES Performing Organization Address City/[facility]/ZIP Co de Phone Number [facility] [place] [address] * Magnesium (07/19/2024 3:45 AM EDT) Magnesium 0.89 0.69 - 1.07 mMol/L 07/19/2024 4:40 AM EDT [facility] Blood VENOUS BLOOD SPECIMEN / Unknown IP Care Team Draw / Unknown 07/19/2024 3:45 AM EDT 07/19/2024 4:00 AM EDT Thony Garcia MD CHEMISTRY ORDERABLES Performing Organization Address [facility] Co de Phone Number [facility] [place] [address] * POC, GLUCOSE (07/19/2024 12:01 AM EDT) Glucometer, POC 186 65 - 199 mg/dL 07/19/2024 12:02 AM EDT [facility] Comment:Supplemental ranges: <140 mg/dL before meals <180 mg/dL all other times of the day. Blood CAPILLARY BLOOD / Unknown 07/19/2024 12:01 AM EDT 07/19/2024 12:02 AM EDT Thony Garcia MD POINT OF CARE TEST O RDERABLES Performing Organization Address City/[facility]/ZIP Co de Phone Number [facility] [place] [address] * POC, GLUCOSE (07/18/2024 9:46 PM EDT) Glucometer, POC 185 65 - 199 mg/dL 07/18/2024 9:47 PM EDT [facility] Comment:Supplemental ranges: <140 mg/dL before meals <180 mg/dL all other times of the day. Blood CAPILLARY BLOOD / Unknown 07/18/2024 9:46 PM EDT 07/18/2024 9:47 PM EDT Thony Garcia MD POINT OF CARE TEST O RDERABLES [facility] [place] [address] * POC, GLUCOSE (07/18/2024 3:20 PM EDT) Glucometer, POC 134 65 - 199 mg/dL 07/18/2024 3:20 PM EDT [facility] Comment:Supplemental ranges: <140 mg/dL before meals <180 mg/dL all other times of the day. Blood CAPILLARY BLOOD / Unknown 07/18/2024 3:20 PM EDT 07/18/2024 3:21 PM EDT Thony Garcia MD POINT OF CARE TEST O RDERAHERNANDEZ Performing Organization Address [facility] Co de Phone Number [facility] [place] [address] * (ABNORMAL) POC, GLUCOSE (07/18/2024 11:53 AM EDT) Glucometer, POC 244(H) 65 - 199 mg/dL 07/18/2024 11:53 AM EDT [facility] Comment:Supplemental ranges: <140 mg/dL before meals <180 mg/dL all other times of the day. Blood CAPILLARY BLOOD / Unknown 07/18/2024 11:53 AM EDT 07/18/2024 11:54 AM EDT Thony Garcia MD POINT OF CARE TEST O RDERAHERNANDEZ [facility] [place] [address] * Vancomycin Level, Random (07/18/2024 8:01 AM EDT) Vancomycin, Random 17.2 mg/L 2023 9:40 AM EDT [facility] Comment:This level is for de termination of the patient's vancomycin dvec-qusxr-sgf-curve (AUC) value. Contact the inpatient pharmacy for interpretation. Blood VENOUS BLOOD SPECIMEN / Unknown IP Care Team Draw / Unknown 07/18/2024 8:01 AM EDT 07/18/2024 8:39 AM EDT Thony Garcia MD CHEMISTRY ORDERABLES Performing Organization Address [facility] Co de Phone Number [facility] [place] [address] * POC, GLUCOSE (07/18/2024 7:21 AM EDT) Glucometer, POC 177 65 - 199 mg/dL 07/18/2024 7:22 AM EDT [facility] Comment:Supplemental ranges: <140 mg/dL before meals <180 mg/dL all other times of the day. Blood CAPILLARY BLOOD / Unknown 07/18/2024 7:21 AM EDT 07/18/2024 7:22 AM EDT Thony Garcia MD POINT OF CARE TEST O RDERABLES Performing Organization Address [facility] Co de Phone Number [facility] [place] [address] * Heparin (unfractionated) Level (07/18/2024 3:33 AM EDT) UF Heparin 0.35 IU/mL 07/18/2024 4:42 AM EDT [facility] Comment: Heparin (anti-Xa) levels [...] EDT Thony Garcia MD HEMATOLOGY ORDERABLE S [facility] [place] [address] * (ABNORMAL) Basic Metabolic Panel (07/18/2024 3:33 AM EDT) Glucose 170 65 - 199 mg/dL 07/18/2024 4:50 AM EDT [facility] Comment:Glucose Concentratio n >=200 mg/dL plus symptoms is consistent with Diabetes Mellitus. Blood Urea Nitrogen 8(L) 10 - 20 mg/dL 07/18/2024 4:50 AM [facility] Creatinine 0.53(L) 0.80 - 1.50 mg/dL 07/18/[facility]24 [facility] Sodium 136 135 - 145 mMol/L 07/18/2024 4:[facility] Potassium 4.3 3.5 - 5.0 mMol/L 07/18/2024 4:50 [facility] Chloride 101 98 - 107 mMol/L 07/18/2024 4:50 [facility] Carbon Dioxide 23 22 - 31 mMol/L 07/18/2024 4:50 [facility] Anion Gap 12 5 - 15 mMol/L 07/18/2024 4:50 AM [facility] Calcium 9.2 8.5 - 10.5 mg/dL 07/18/2024 4:50 [facility] Est Glomerular Filtration Rate - Male 122 mL/min/1. 73 m?? 07/18/2024 4:50 AM EDT [facility] Comment: This patient's estimated [...] Garcia MD CHEMISTRY ORDERABLES Performing Organization Address City/State/[facility] Co de Phone Number [facility] [place] [address] * (ABNORMAL) CBC (with Diff) (07/18/2024 3:33 AM EDT) White Blood Cell 11.56(H) 4.00 - 9.50 x10(3)/mc L 07/18/2024 4:26 AM EDT [facility] Red Blood Cell 4.55(L) 4.58 - 5.54 x10(6)/mc L 07/18/2024 4:26 AM EDT [facility] Hemoglobin 13.4(L) 13.7 - 16.5 g/dL 07/18/2024 4:26 AM EDT [facility] Hematocrit 40.2(L) 40.5 - 48.5 % 07/18/2024 4:26 AM EDT [facility] Mean Cell Volume 88.4 82.9 - 93.1 fL 07/18/2024 4:26 AM EDT [facility] Mean Cell Hemoglobin 29.5 27.5 - 32.1 pg 07/18/2024 4:26 AM [facility] Mean Cell Hemoglobin Concentration 33.3 32.0 - 35.7 g/dL 07/18/2024 4:26 AM [facility] Platelet 392(H) 145 - 357 x10(3)/mc L 07/18/2024 4:26 AM [facility] Mean Platelet Volume 10.2 7.6 - 12.9 fL 07/18/2024 4:26 AM [facility] RDW Standard Deviation 42.0 36.0 - 45.0 fL 07/18/2024 4:26 AM [facility] RDW coefficient of variation 13.1 11.4 - 13.8 % 07/18/2024 4:26 AM [facility] NRBC% auto 0.0 % 07/18/2024 4:26 AM [facility] NRBC Absolute 0.00 0.00 - 0.00 x10(3)/mc L 07/18/2024 4:26 AM [facility] Neutrophil % 68.4 % 07/18/2024 4:26 AM [facility] Neutrophil Absolute (ANC) - Automated 7.91(H) 1.70 - 6.10 x10(3)/mc L 07/18/2024 4:26 AM [facility] Lymph % 21.3 % 07/18/2024 4:26 AM [facility] Lymph Absolute 2.46 0.90 - 3.20 x10(3)/mc L 07/18/2024 4:26 AM [facility] Monocyte % 7.2 % 07/18/2024 4:26 AM [facility] Monocyte Absolute 0.83 0.30 - 0.90 x10(3)/mc L 07/18/2024 4:26 AM [facility] Eos % 1.7 % 07/18/2024 4:26 AM [facility] Eos Absolute 0.20 0.00 - 0.40 x10(3)/mc L 07/18/2024 4:26 AM EDT [facility] Basophil % 0.8 % 07/18/2024 4:26 AM EDT [facility] Baso Absolute 0.09 0.00 - 0.10 x10(3)/mc L 07/18/2024 4:26 AM EDT [facility] Immature Gran % 0.6 % 4:26 AM EDT [facility] Immature Gran Absolute 0.07(H) 0.00 - 0.04 x10(3)/mc L 07/18/2024 4:26 AM EDT [facility] Blood VENOUS BLOOD SPECIMEN / Unknown IP Care Team Draw / Unknown 07/18/2024 3:33 AM EDT 07/18/2024 4:21 AM EDT Thony Garcia MD HEMATOLOGY ORDERABLE S Performing Organization Address City/[facility]/ZIP Co de Phone Number [facility] [place] [address] * Phosphorus (07/18/2024 3:33 AM EDT) Phosphorus 3.7 2.5 - 4.5 mg/dL 07/18/2024 4:50 AM EDT [facility] Blood VENOUS BLOOD SPECIMEN / Unknown IP Care Team Draw / Unknown 07/18/2024 3:33 AM EDT 07/18/2024 4:21 AM EDT Thony Garcia MD CHEMISTRY ORDERABLES [facility] [place] [address] * Magnesium (07/18/2024 3:33 AM EDT) Magnesium 0.88 0.69 - 1.07 mMol/L 07/18/2024 4:50 AM EDT [facility] Blood VENOUS BLOOD SPECIMEN / Unknown IP Care Team Draw / Unknown 07/18/2024 3:33 AM EDT 07/18/2024 4:21 AM EDT Thony Garcia MD CHEMISTRY ORDERABLES Performing Organization Address [facility] Co de Phone Number [facility] [place] [address] * LDL Cholesterol, Direct (07/18/2024 3:33 AM EDT) LDL Cholesterol, Direct 65 mg/dL 07/18/2024 4:50 AM EDT [facility] Comment: Desirable: <100 mg/dL [...] Garcia MD CHEMISTRY ORDERABLES Performing Organization Address [facility]/ZIP Co de Phone Number [facility] [place] [address] * HDL/Cholesterol Profile (07/18/2024 3:33 AM EDT) Cholesterol, Total 114 mg/dL 07/18/2024 4:50 AM EDT [facility] Comment: Desirable: < 200 mg/dL Borderline High: 200 - 239 mg/dL High: > or = 240 mg/dL HDL Cholesterol 38 mg/dL 4:50 AM EDT [facility] Comment:Males: High Risk: <4 0 mg/dL Non-HDL Cholesterol 76 mg/dL 07/18/2024 4:50 AM EDT [facility] Comment: Desirable: <130 mg/dL Above Desirable: 130-159 mg/dL Borderline High: 160-189 mg/dL High: 190-219 mg/dL Very High: > or = 220 mg/dL Blood VENOUS BLOOD SPECIMEN / Unknown IP Care Team Draw / Unknown 07/18/2024 3:33 AM EDT 07/18/2024 4:[address] [facility] - 07/18/2024 4:50 AM EDT [...] ACC/AHA Guidelines (most recently Johann et al. [facility] 08/11/22): * For individuals with atherosclerotic cardiovascular [...] Garcia MD CHEMISTRY ORDERABLES Performing Organization Address [facility] Co de Phone Number [facility] [place] [address] * (ABNORMAL) POC, GLUCOSE (07/18/2024 3:21 AM EDT) Glucometer, POC 200(H) 65 - 199 mg/dL 07/18/2024 3:22 AM EDT [facility] Comment:Supplemental ranges: <140 mg/dL before meals <180 mg/dL all other times of the day. Blood CAPILLARY BLOOD / Unknown 07/18/2024 3:21 AM EDT 07/18/2024 3:22 AM EDT Thony Garcia MD POINT OF CARE TEST O RDERABLES Performing Organization Address [facility] Co de Phone Number [facility] [place] [address] * (ABNORMAL) POC, GLUCOSE (07/18/2024 12:44 AM EDT) Glucometer, POC 216(H) 65 - 199 mg/dL 07/18/2024 12:44 AM EDT [facility] Comment:Supplemental ranges: <140 mg/dL before meals <180 mg/dL all other times of the day. Blood CAPILLARY BLOOD / Unknown 07/18/2024 12:44 AM EDT 07/18/2024 12:44 AM EDT Thony Garcia MD POINT OF CARE TEST O RDERABLES Performing Organization Address [facility] Co de Phone Number [facility] [place] [address] * (ABNORMAL) POC, GLUCOSE (07/17/2024 9:02 PM EDT) Glucometer, POC 294(H) 65 - 199 mg/dL 07/17/2024 9:02 PM EDT [facility] Comment:Supplemental ranges: <140 mg/dL before meals <180 mg/dL all other times of the day. Blood CAPILLARY BLOOD / Unknown 07/17/2024 9:02 PM EDT 07/17/2024 9:03 PM EDT Thony Garcia MD POINT OF CARE TEST O GILDA Performing Organization Address [facility] Co de Phone Number [facility] [place] [address] * (ABNORMAL) POC, GLUCOSE (07/17/2024 4:07 PM EDT) Glucometer, POC 219(H) 65 - 199 mg/dL 07/17/2024 4:07 PM EDT [facility] Comment:Supplemental ranges: <140 mg/dL before meals <180 mg/dL all other times of the day. Blood CAPILLARY BLOOD / Unknown 07/17/2024 4:07 PM EDT 07/17/2024 4:07 PM EDT Thony Garcia MD POINT OF CARE TEST O RDERAHERNANDEZ Performing Organization Address City/[facility] Co de Phone Number [facility] [place] [address] * (ABNORMAL) POC, GLUCOSE (07/17/2024 11:31 AM EDT) Glucometer, POC 255(H) 65 - 199 mg/dL 07/17/2024 11:32 AM EDT [facility] Comment:Supplemental ranges: <140 mg/dL before meals <180 mg/dL all other times of the day. Blood CAPILLARY BLOOD / Unknown 07/17/2024 11:31 AM EDT 07/17/2024 11:32 AM EDT Thony Garcia MD POINT OF CARE TEST O RDERABLES Performing Organization Address [facility] Co de Phone Number [facility] [place] [address] * POC, GLUCOSE (07/17/2024 7:38 AM EDT) Glucometer, POC 112 65 - 199 mg/dL 07/17/2024 7:38 AM EDT [facility] Comment:Supplemental ranges: <140 mg/dL before meals <180 mg/dL all other times of the day. Blood CAPILLARY BLOOD / Unknown 07/17/2024 7:38 AM EDT 07/17/2024 7:38 AM EDT Thony Garcia MD POINT OF CARE TEST O RDERABLES Performing Organization Address City/[facility] Co de Phone Number [facility] [place] [address] * ELEN, legs, multiple levels (07/17/2024 6:31 AM EDT) VB Text Report Department: Vascular Surgery Lab Patient: [id number] (GEOVANNA DIXON) CPT: 35006 Referring Physician: VIBHA TIERNEY ?? Indications: PAD [...] ? Dorsalis Pedis (Ankle) Artery ?83 ?0.55 ??[place]-Biphasic ? Posterior Tibial (Ankle) Artery ??87 ?0.57 [...] (ABNORMAL) POC, GLUCOSE (07/17/2024 4:12 AM EDT) Glucometer, POC 205(H) 65 - 199 mg/dL 07/17/2024 4:12 AM EDT [facility] Comment:Supplemental ranges: <140 mg/dL before meals <180 mg/dL all other times of the day. Blood CAPILLARY BLOOD / Unknown 07/17/2024 4:12 AM EDT 07/17/2024 4:12 AM EDT Thony Garcia MD POINT OF CARE TEST O RDERABLES Performing Organization Address [facility] Co de Phone Number [facility] [place] [address] * Heparin (unfractionated) Level (07/17/2024 3:42 AM EDT) UF Heparin 0.42 IU/mL 07/17/2024 4:38 AM EDT [facility] Comment: Heparin (anti-Xa) levels [...] MD HEMATOLOGY ORDERABLE S Performing Organization Address [facility]/ZIP Co de Phone Number [facility] [place] [address] * Phosphorus (07/17/2024 3:42 AM EDT) Phosphorus 3.6 2.5 - 4.5 mg/dL 07/17/2024 4:47 AM EDT [facility] Blood VENOUS BLOOD SPECIMEN / Unknown IP Care Team Draw / Unknown 07/17/2024 3:42 AM EDT 07/17/2024 4:15 AM EDT Thony Garcia MD CHEMISTRY ORDERABLES [facility] [place] [address] * Magnesium (07/17/2024 3:42 AM EDT) Pathologist [facility] Magnesium 0.78 0.69 - 1.07 mMol/L 07/17/2024 4:47 AM EDT [facility] Blood VENOUS BLOOD SPECIMEN / Unknown IP Care Team Draw / Unknown 07/17/2024 3:42 AM EDT 07/17/2024 4:15 AM EDT Thony Garcia MD CHEMISTRY ORDERABLES Performing Organization Address [facility] Co de Phone Number [facility] [place] [address] * (ABNORMAL) Basic Metabolic Panel (07/17/2024 3:42 AM EDT) Pathologist [facility] Glucose 225(H) 65 - 199 mg/dL 07/17/2024 4:47 AM EDT [facility] Comment:Glucose Concentratio n >=200 mg/dL plus symptoms is consistent with Diabetes Mellitus. Blood Urea Nitrogen 9(L) 10 - 20 mg/dL 07/17/2024 4:47 AM EDT [facility] Creatinine 0.49(L) 0.80 - 1.50 mg/dL 07/17/2024 4:47 AM EDT [facility] Sodium 135 135 - 145 mMol/L 07/17/2024 4:47 AM EDT [facility] Potassium 3.7 3.5 - 5.0 mMol/L 07/17/2024 4:47 AM EDT [facility] Chloride 103 98 - 107 mMol/L 07/17/2024 4:47 AM [facility] Carbon Dioxide 21(L) 22 - 31 mMol/L 07/17/2024 4:47 AM EDT [facility] Anion Gap 11 5 - 15 mMol/L 07/17/2024 4:47 AM EDT [facility] Calcium 9.1 8.5 - 10.5 mg/dL 07/17/2024 4:47 AM EDT [facility] Est Glomerular Filtration Rate - Male 125 mL/min/1. 73 m?? 07/17/2024 4:47 AM EDT [facility] Comment: This patient's estimated [...] AM EDT Thony Garcia MD CHEMISTRY ORDERABLES [facility] [place] [address] * (ABNORMAL) CBC (with Diff) (07/17/2024 3:42 AM EDT) White Blood Cell 11.02(H) 4.00 - 9.50 x10(3)/mc L 07/17/2024 4:21 AM EDT [facility] Red Blood Cell 4.43(L) 4.58 - 5.54 x10(6)/mc L 07/17/2024 4:21 AM EDT [facility] Hemoglobin 13.1(L) 13.7 - 16.5 g/dL 07/17/2024 4:21 AM EDT [facility] Hematocrit 38.8(L) 40.5 - 48.5 % 07/17/2024 4:21 AM EDT [facility] Mean Cell Volume 87.6 82.9 - 93.1 fL 07/17/2024 4:21 AM [facility] Mean Cell Hemoglobin 29.6 27.5 - 32.1 pg 07/17/2024 4:21 AM [facility] Mean Cell Hemoglobin Concentration 33.8 32.0 - 35.7 g/dL 07/17/2024 4:21 AM [facility] Platelet 367(H) 145 - 357 x10(3)/mc L 07/17/2024 4:21 AM [facility] Mean Platelet Volume 9.7 7.6 - 12.9 fL 07/17/2024 4:21 AM [facility] RDW Standard Deviation 41.5 36.0 - 45.0 fL 07/17/2024 4:21 AM [facility] RDW coefficient of variation 13.0 11.4 - 13.8 % 07/17/2024 4:21 AM [facility] NRBC% auto 0.0 % 07/17/2024 4:21 AM [facility] NRBC Absolute 0.00 0.00 - 0.00 x10(3)/mc L 07/17/2024 4:21 AM [facility] Neutrophil % 70.4 % 07/17/2024 4:21 AM [facility] Neutrophil Absolute (ANC) - Automated 7.76(H) 1.70 - 6.10 x10(3)/mc L 07/17/2024 4:21 AM [facility] Lymph % 20.9 % 07/17/2024 4:21 AM [facility] Lymph Absolute 2.30 0.90 - 3.20 x10(3)/mc L 07/17/2024 4:21 AM [facility] Monocyte % 6.0 % 07/17/2024 4:21 AM [facility] Monocyte Absolute 0.66 0.30 - 0.90 x10(3)/mc L 07/17/2024 4:21 AM EDT [facility] Eos % 1.6 % 07/17/2024 4:21 AM EDT [facility] Eos Absolute 0.18 0.00 - 0.40 x10(3)/mc L 07/17/2024 4:21 AM EDT [facility] Basophil % 0.5 % 07/17/2024 4:21 AM EDT [facility] Baso Absolute 0.05 0.00 - 0.10 x10(3)/mc L 07/17/2024 4:21 AM EDT [facility] Immature Gran % 0.6 % 4:21 AM EDT [facility] Immature Gran Absolute 0.07(H) 0.00 - 0.04 x10(3)/mc L 07/17/2024 4:21 AM EDT [facility] Blood VENOUS BLOOD SPECIMEN / Unknown IP Care Team Draw / Unknown 07/17/2024 3:42 AM EDT 07/17/2024 4:15 AM EDT Thony Garcia MD HEMATOLOGY ORDERABLE S Performing Organization Address City/[facility] Co de Phone Number [facility] [place] [address] * (ABNORMAL) POC, GLUCOSE (07/17/2024 2:25 AM EDT) [facility] Signature Glucometer, POC 262(H) 65 - 199 mg/dL 07/17/2024 2:25 AM EDT [facility] Comment:Supplemental ranges: <140 mg/dL before meals <180 mg/dL all other times of the day. Blood CAPILLARY BLOOD / Unknown 07/17/2024 2:25 AM EDT 07/17/2024 2:25 AM EDT Thony Garcia MD POINT OF CARE TEST O RDERABLES [facility] [place] [address] * (ABNORMAL) POC, GLUCOSE (07/17/2024 12:19 AM EDT) Glucometer, POC 262(H) 65 - 199 mg/dL 07/17/2024 12:19 AM EDT [facility] Comment:Supplemental ranges: <140 mg/dL before meals <180 mg/dL all other times of the day. Blood CAPILLARY BLOOD / Unknown 07/17/2024 12:19 AM EDT 07/17/2024 12:20 AM EDT Thony Garcia MD POINT OF CARE TEST O DIMITRIERAHERNANDEZ [facility] [place] [address] * (ABNORMAL) POC, GLUCOSE (07/16/2024 8:22 PM EDT) Glucometer, POC 217(H) 65 - 199 mg/dL 07/16/2024 8:23 PM EDT [facility] Comment:Supplemental ranges: <140 mg/dL before meals <180 mg/dL all other times of the day. Blood CAPILLARY BLOOD / Unknown 07/16/2024 8:22 PM EDT 07/16/2024 8:23 PM EDT Thony Garcia MD POINT OF CARE TEST O GILDA [facility] [place] [address] * POC, GLUCOSE (07/16/2024 3:47 PM EDT) Glucometer, POC 184 65 - 199 mg/dL 07/16/2024 3:47 PM EDT [facility] Comment:Supplemental ranges: <140 mg/dL before meals <180 mg/dL all other times of the day. Blood CAPILLARY BLOOD / Unknown 07/16/2024 3:47 PM EDT 07/16/2024 3:48 PM EDT Thony Garcia MD POINT OF CARE TEST O RDERABLES Performing Organization Address [facility] Co de Phone Number [facility] [place] [address] * Heparin (unfractionated) Level (07/16/2024 3:39 PM EDT) UF Heparin 0.47 IU/mL 07/16/2024 4:24 PM EDT [facility] Comment: Heparin (anti-Xa) levels [...] MD HEMATOLOGY ORDERABLE S Performing Organization Address City/[facility]/ZIP Co de Phone Number [facility] [place] [address] * Potassium (07/16/2024 3:39 PM EDT) Potassium 3.9 3.5 - 5.0 mMol/L 07/16/2024 4:15 PM EDT [facility] Blood VENOUS BLOOD SPECIMEN / Unknown IP Care Team Draw / Unknown 07/16/2024 3:39 PM EDT 07/16/2024 3:47 PM EDT Hermila White RESHMA CHEMISTRY ORDERABL ES [facility] [place] [address] * MRSA PCR Screen (07/16/2024 2:07 PM EDT) MRSA PCR Not Detected 07/17/2024 6:04 PM EDT [facility] Swab BOTH ANTERIOR NARES / Unknown Non Blood Collection / Unknown 07/16/2024 2:07 PM EDT 07/16/2024 2:13 PM EDT Narrative [facility] - 07/17/2024 6:04 PM EDT This test was performed using the Xpert MRSA NxG test kit and is run on the [employer] GeneXpert Dx System. This test is cleared by the U.S. Food and Drug Administration for clinical use and its performance characteristics have been verified by the [facility] at [facility]. This test was performed using the Xpert MRSA NxG test kit and is run on the [employer] GeneXpert Dx System. This test is cleared by the U.S. Food and Drug Administration for clinical use and its performance characteristics have been verified by the [facility] at [facility]. Hermila White RESHMA MOLECULAR ORDERABL ES [facility] [place] [address] * POC, GLUCOSE (07/16/2024 1:33 PM EDT) Glucometer, POC 183 65 - 199 mg/dL 07/16/2024 1:33 PM EDT [facility] Comment:Supplemental ranges: <140 mg/dL before meals <180 mg/dL all other times of the day. Blood CAPILLARY BLOOD / Unknown 07/16/2024 1:33 PM EDT 07/16/2024 1:33 PM EDT Thony Garcia MD POINT OF CARE TEST O RDERABLES Performing Organization Address [facility]/ZIP Co de Phone Number [facility] [place] [address] * (ABNORMAL) POC, GLUCOSE (07/16/2024 11:41 AM EDT) Glucometer, POC 259(H) 65 - 199 mg/dL 07/16/2024 11:41 AM EDT [facility] Comment:Supplemental ranges: <140 mg/dL before meals <180 mg/dL all other times of the day. Blood CAPILLARY BLOOD / Unknown 07/16/2024 11:41 AM EDT 07/16/2024 11:41 AM EDT Thony Garcia MD POINT OF CARE TEST O RDERABLES Performing Organization Address [facility] Co de Phone Number [facility] [place] [address] * Heparin (unfractionated) Level (07/16/2024 9:41 AM EDT) UF Heparin 0.60 IU/mL 07/16/2024 9:54 AM EDT [facility] Comment: Heparin (anti-Xa) levels [...] AM EDT 07/16/2024 9:45 AM EDT Thony Gacria MD HEMATOLOGY ORDERABLE S Performing Organization Address [facility]/ZIP Co de Phone Number [facility] [place] [address] * (ABNORMAL) POC, GLUCOSE (07/16/2024 7:10 AM EDT) Glucometer, POC 205(H) 65 - 199 mg/dL 07/16/2024 7:11 AM EDT [facility] Comment:Supplemental ranges: <140 mg/dL before meals <180 mg/dL all other times of the day. Blood CAPILLARY BLOOD / Unknown 07/16/2024 7:10 AM EDT 07/16/2024 7:11 AM EDT Thony Garcia MD POINT OF CARE TEST O RDERABLES Performing Organization Address [facility] Co de Phone Number [facility] [place] [address] * (ABNORMAL) Potassium (07/16/2024 4:15 AM EDT) Potassium 3.2(L) 3.5 - 5.0 mMol/L 07/16/2024 4:53 AM EDT [facility] Blood VENOUS BLOOD SPECIMEN / Unknown IP Care Team Draw / Unknown 07/16/2024 4:15 AM EDT 07/16/2024 4:23 AM EDT Thony Garcia MD CHEMISTRY ORDERABLES Performing Organization Address City/[facility]/ZIP Co de Phone Number [facility] [place] [address] * Phosphorus (07/16/2024 4:15 AM EDT) Phosphorus 3.7 2.5 - 4.5 mg/dL 07/16/2024 4:53 AM EDT [facility] Blood VENOUS BLOOD SPECIMEN / Unknown IP Care Team Draw / Unknown 07/16/2024 4:15 AM EDT 07/16/2024 4:23 AM EDT Thnoy Garcia MD CHEMISTRY ORDERABLES Performing Organization Address [facility]/ZIP Co de Phone Number [facility] [place] [address] * POC, GLUCOSE (07/16/2024 4:14 AM EDT) [facility] Signature Glucometer, POC 187 65 - 199 mg/dL 07/16/2024 4:17 AM EDT [facility] Comment:Supplemental ranges: <140 mg/dL before meals <180 mg/dL all other times of the day. Blood CAPILLARY BLOOD / Unknown 07/16/2024 4:14 AM EDT 07/16/2024 4:17 AM EDT Thony Garcia MD POINT OF CARE TEST O RDERABLES Performing Organization Address [facility]/ZIP Co de Phone Number [facility] [place] [address] * (ABNORMAL) POC, GLUCOSE (07/16/2024 2:07 AM EDT) [facility] Glucometer, POC 254(H) 65 - 199 mg/dL 07/16/2024 2:08 AM EDT [facility] Comment:Supplemental ranges: <140 mg/dL before meals <180 mg/dL all other times of the day. Blood CAPILLARY BLOOD / Unknown 07/16/2024 2:07 AM EDT 07/16/2024 2:08 AM EDT Thony Garcia MD POINT OF CARE TEST O GILDA Performing Organization Address City/[facility]/ZIP Co de Phone Number [facility] [place] [address] * Heparin (unfractionated) Level (07/16/2024 2:07 AM EDT) [facility] Signature UF Heparin 0.72 IU/mL 07/16/2024 2:36 AM EDT [facility] Comment: Heparin (anti-Xa) levels [...] MD HEMATOLOGY ORDERABLE S Performing Organization Address City/[facility] Co de Phone Number [facility] [place] [address] * Magnesium (07/16/2024 2:07 AM EDT) Magnesium 0.83 0.69 - 1.07 mMol/L 07/16/2024 2:47 AM EDT [facility] Blood VENOUS BLOOD SPECIMEN / Unknown IP Care Team Draw / Unknown 07/16/2024 2:07 AM EDT 07/16/2024 2:14 AM EDT Thony Garcia MD CHEMISTRY ORDERABLES Performing Organization Address [facility] Co de Phone Number [facility] [place] [address] * (ABNORMAL) Basic Metabolic Panel (07/16/2024 2:07 AM EDT) Glucose 248(H) 65 - 199 mg/dL 07/16/2024 2:57 AM [facility] Comment:Glucose Concentratio n >=200 mg/dL plus symptoms is consistent with Diabetes Mellitus. Blood Urea Nitrogen 8(L) 10 - 20 mg/dL 07/16/2024 2:57 AM [facility] Creatinine 0.42(L) 0.80 - 1.50 mg/dL 07/16/2024 2:57 AM [facility] Sodium 135 135 - 145 mMol/L 07/16/2024 2:57 AM [facility] Potassium 07/16/2024 2:57 AM [facility] Comment:Unable to report due to hemolysis Chloride 101 98 - 107 mMol/L 07/16/2024 2:57 AM [facility] Carbon Dioxide 22 22 - 31 mMol/L 07/16/2024 2:57 AM [facility] Anion Gap 12 5 - 15 mMol/L 07/16/2024 2:57 AM [facility] Calcium 9.0 8.5 - 10.5 mg/dL 07/16/2024 2:57 AM [facility] Est Glomerular Filtration Rate - Male 131 mL/min/1. 73 m?? 07/16/2024 2:57 AM [facility] Comment: This patient's estimated [...] AM EDT Thony Garcia MD CHEMISTRY ORDERABLES [facility] [place] [address] * (ABNORMAL) CBC (with Diff) (07/16/2024 2:07 AM EDT) White Blood Cell 11.08(H) 4.00 - 9.50 x10(3)/mc L 07/16/2024 2:23 AM EDT [facility] Red Blood Cell 4.29(L) 4.58 - 5.54 x10(6)/mc L 07/16/2024 2:23 AM EDT [facility] Hemoglobin 12.7(L) 13.7 - 16.5 g/dL 07/16/2024 2:23 AM EDT [facility] Hematocrit 36.6(L) 40.5 - 48.5 % 07/16/2024 2:23 AM EDT [facility] Mean Cell Volume 85.3 82.9 - 93.1 fL 07/16/2024 2:23 AM EDT [facility] Mean Cell Hemoglobin 29.6 27.5 - 32.1 pg 07/16/2024 2:23 AM EDT [facility] Mean Cell Hemoglobin Concentration 34.7 32.0 - 35.7 g/dL 07/16/2024 2:23 AM EDT [facility] Platelet 363(H) 145 - 357 x10(3)/mc L 07/16/2024 2:23 AM EDT [facility] Mean Platelet Volume 10.3 7.6 - 12.9 fL 07/16/2024 2:23 AM EDT [facility] RDW Standard Deviation 39.2 36.0 - 45.0 fL 07/16/2024 2:23 AM EDT [facility] RDW coefficient of variation 12.7 11.4 - 13.8 % 07/16/2024 2:23 AM EDT [facility] NRBC% auto 0.0 % 07/16/2024 2:23 AM [facility] NRBC Absolute 0.00 0.00 - 0.00 x10(3)/mc L 07/16/2024 2:23 AM [facility] Neutrophil % 66.2 % 07/16/2024 2:23 AM [facility] Neutrophil Absolute (ANC) - Automated 7.33(H) 1.70 - 6.10 x10(3)/mc L 07/16/2024 2:23 AM [facility] Lymph % 24.2 % 07/16/2024 2:23 AM [facility] Lymph Absolute 2.68 0.90 - 3.20 x10(3)/mc L 07/16/2024 2:23 AM [facility] Monocyte % 6.9 % 07/16/2024 2:23 AM [facility] Monocyte Absolute 0.77 0.30 - 0.90 x10(3)/mc L 07/16/2024 2:23 AM [facility] Eos % 1.6 % 07/16/2024 2:23 AM [facility] Eos Absolute 0.18 0.00 - 0.40 x10(3)/mc L 07/16/2024 2:23 AM [facility] Basophil % 0.6 % 07/16/2024 2:23 AM [facility] Baso Absolute 0.07 0.00 - 0.10 x10(3)/mc L 07/16/2024 2:23 AM [facility] Immature Gran % 0.5 % 2:23 AM [facility] Immature Gran Absolute 0.05(H) 0.00 - 0.04 x10(3)/mc L 07/16/2024 2:23 AM [facility] Blood VENOUS BLOOD SPECIMEN / Unknown IP Care Team Draw / Unknown 07/16/2024 2:07 AM EDT 07/16/2024 2:14 AM EDT Thony Garcia MD HEMATOLOGY ORDERABLE S Performing Organization Address City/[facility]/ZIP Co de Phone Number [facility] [place] [address] * (ABNORMAL) POC, GLUCOSE (07/16/2024 12:04 AM EDT) Glucometer, POC 324(H) 65 - 199 mg/dL 07/16/2024 12:05 AM EDT [facility] Comment:Supplemental ranges: <140 mg/dL before meals <180 mg/dL all other times of the day. Blood CAPILLARY BLOOD / Unknown 07/16/2024 12:04 AM EDT 07/16/2024 12:05 AM EDT Thony Garcia MD POINT OF CARE TEST O GILDA Performing Organization Address [facility] Co de Phone Number [facility] [place] [address] * (ABNORMAL) POC, GLUCOSE (07/15/2024 8:36 PM EDT) Glucometer, POC 274(H) 65 - 199 mg/dL 07/15/2024 8:36 PM EDT [facility] Comment:Supplemental ranges: <140 mg/dL before meals <180 mg/dL all other times of the day. Blood CAPILLARY BLOOD / Unknown 07/15/2024 8:36 PM EDT 07/15/2024 8:36 PM EDT Thony Garcia MD POINT OF CARE TEST O GILDA [facility] [place] [address] * Heparin (unfractionated) Level (07/15/2024 8:21 PM EDT) UF Heparin 0.55 IU/mL 07/15/2024 8:42 PM EDT [facility] Comment: Heparin (anti-Xa) levels [...] MD HEMATOLOGY ORDERABLE S Performing Organization Address City/[facility] Co de Phone Number [facility] [place] [address] * (ABNORMAL) POC, GLUCOSE (07/15/2024 4:41 PM EDT) [facility] Signature Glucometer, POC 275(H) 65 - 199 mg/dL 07/15/2024 4:42 PM EDT [facility] Comment:Supplemental ranges: <140 mg/dL before meals <180 mg/dL all other times of the day. Blood CAPILLARY BLOOD / Unknown 07/15/2024 4:41 PM EDT 07/15/2024 4:42 PM EDT Thony Garcia MD POINT OF CARE TEST O RDERABLES Performing Organization Address [facility] Co de Phone Number [facility] [place] [address] * (ABNORMAL) Vancomycin, trough (07/15/2024 2:19 PM EDT) Vancomycin, Trough 9.7(L) 10.0 - 20.0 mg/L 07/15/2024 3:28 PM EDT [facility] Comment: Varies according to infection source. Blood VENOUS BLOOD SPECIMEN / Unknown IP Care Team Draw / Unknown 07/15/2024 2:19 PM EDT 07/15/2024 3:00 PM EDT Thony Garcia MD CHEMISTRY ORDERABLES Performing Organization Address [facility] Co de Phone Number [facility] [place] [address] * (ABNORMAL) POC, GLUCOSE (07/15/2024 1:16 PM EDT) [facility] Glucometer, POC 223(H) 65 - 199 mg/dL 07/15/2024 1:17 PM EDT [facility] Comment:Supplemental ranges: <140 mg/dL before meals <180 mg/dL all other times of the day. Blood CAPILLARY BLOOD / Unknown 07/15/2024 1:16 PM EDT 07/15/2024 1:18 PM EDT Thony Garcia MD POINT OF CARE TEST O RDERABLES Performing Organization Address [facility] Co de Phone Number [facility] [place] [address] * POC, GLUCOSE (07/15/2024 8:34 AM EDT) [facility] Glucometer, POC 133 65 - 199 mg/dL 07/15/2024 8:35 AM EDT [facility] Comment:Supplemental ranges: <140 mg/dL before meals <180 mg/dL all other times of the day. Blood CAPILLARY BLOOD / Unknown 07/15/2024 8:34 AM EDT 07/15/2024 8:35 AM EDT Thony Garcia MD POINT OF CARE TEST O RDERAHERNANDEZ Performing Organization Address City/[facility]/ZIP Co de Phone Number [facility] [place] [address] * (ABNORMAL) POC, GLUCOSE (07/15/2024 4:44 AM EDT) Glucometer, POC 224(H) 65 - 199 mg/dL 07/15/2024 4:44 AM EDT [facility] Comment:Supplemental ranges: <140 mg/dL before meals <180 mg/dL all other times of the day. Blood CAPILLARY BLOOD / Unknown 07/15/2024 4:44 AM EDT 07/15/2024 4:44 AM EDT Thony Garcia MD POINT OF CARE TEST O RDERAHERNANDEZ [facility] [place] [address] * (ABNORMAL) POC, GLUCOSE (07/15/2024 2:48 AM EDT) Glucometer, POC 281(H) 65 - 199 mg/dL 07/15/2024 2:48 AM EDT [facility] Comment:Supplemental ranges: <140 mg/dL before meals <180 mg/dL all other times of the day. Blood CAPILLARY BLOOD / Unknown 07/15/2024 2:48 AM EDT 07/15/2024 2:48 AM EDT Thony Garcia MD POINT OF CARE TEST O GILDA [facility] [place] [address] * (ABNORMAL) Basic Metabolic Panel (07/15/2024 12:45 AM EDT) Glucose 309(H) 65 - 199 mg/dL 07/15/2024 1:28 AM EDT [facility] Comment:Glucose Concentratio n >=200 mg/dL plus symptoms is consistent with Diabetes Mellitus. Blood Urea Nitrogen 8(L) 10 - 20 mg/dL 07/15/2024 1:28 AM [facility] Creatinine 0.80 0.80 - 1.50 mg/dL 07/15/2024 1:28 AM [facility] Sodium 132(L) 135 - 145 mMol/L 07/15/2024 1:28 AM [facility] Potassium 3.7 3.5 - 5.0 mMol/L 07/15/2024 1:28 AM [facility] Chloride 99 98 - 107 mMol/L 07/15/2024 1:28 AM [facility] Carbon Dioxide 20(L) 22 - 31 mMol/L 07/15/2024 1:28 AM [facility] Anion Gap 13 5 - 15 mMol/L 07/15/2024 1:28 AM [facility] Calcium 8.5 8.5 - 10.5 mg/dL 07/15/2024 1:28 AM [facility] Est Glomerular Filtration Rate - Male 108 mL/min/1. 73 m?? 07/15/2024 1:28 AM [facility] Comment: This patient's estimated [...] AM EDT Thony Garcia MD CHEMISTRY ORDERABLES [facility] [place] [address] * (ABNORMAL) CBC (with Diff) (07/15/2024 12:45 AM EDT) White Blood Cell 11.70(H) 4.00 - 9.50 x10(3)/mc L 07/15/2024 1:05 AM [facility] Red Blood Cell 4.13(L) 4.58 - 5.54 x10(6)/mc L 07/15/2024 1:05 AM [facility] Hemoglobin 12.1(L) 13.7 - 16.5 g/dL 07/15/2024 1:05 AM [facility] Hematocrit 35.7(L) 40.5 - 48.5 % 07/15/2024 1:05 AM [facility] Mean Cell Volume 86.4 82.9 - 93.1 fL 07/15/2024 1:05 AM [facility] Mean Cell Hemoglobin 29.3 27.5 - 32.1 pg 07/15/2024 1:05 AM [facility] Mean Cell Hemoglobin Concentration 33.9 32.0 - 35.7 g/dL 07/15/2024 1:05 AM [facility] Platelet 322 145 - 357 x10(3)/mc L 07/15/2024 1:05 AM [facility] Mean Platelet Volume 9.9 7.6 - 12.9 fL 07/15/2024 1:05 AM [facility] RDW Standard Deviation 40.2 36.0 - 45.0 fL 07/15/2024 1:05 AM [facility] RDW coefficient of variation 12.9 11.4 - 13.8 % 07/15/2024 1:05 AM [facility] NRBC% auto 0.0 % 07/15/2024 1:05 AM [facility] NRBC Absolute 0.00 0.00 - 0.00 x10(3)/mc L 07/15/2024 1:05 AM [facility] Neutrophil % 74.9 % 07/15/2024 1:05 AM EDT [facility] Neutrophil Absolute (ANC) - Automated 8.75(H) 1.70 - 6.10 x10(3)/mc L 07/15/2024 1:05 AM EDT [facility] Lymph % 16.3 % 07/15/2024 1:05 AM EDT [facility] Lymph Absolute 1.91 0.90 - 3.20 x10(3)/mc L 07/15/2024 1:05 AM EDT [facility] Monocyte % 6.6 % 07/15/2024 1:05 AM EDT [facility] Monocyte Absolute 0.77 0.30 - 0.90 x10(3)/mc L 07/15/2024 1:05 AM EDT [facility] Eos % 1.5 % 07/15/2024 1:05 AM EDT [facility] Eos Absolute 0.18 0.00 - 0.40 x10(3)/mc L 07/15/2024 1:05 AM EDT [facility] Basophil % 0.3 % 07/15/2024 1:05 AM [facility] [facility] Baso Absolute 0.04 0.00 - 0.10 x10(3)/mc L 07/15/2024 1:05 AM EDT [facility] Immature Gran % 0.4 % 1:05 AM EDT [facility] Immature Gran Absolute 0.05(H) 0.00 - 0.04 x10(3)/mc L 07/15/2024 1:05 AM EDT [facility] Blood VENOUS BLOOD SPECIMEN / Unknown IP Care Team Draw / Unknown 07/15/2024 12:45 AM EDT 07/15/2024 1:00 AM EDT Thony Garcia MD HEMATOLOGY ORDERABLE S [facility] [place] [address] * (ABNORMAL) POC, GLUCOSE (07/15/2024 12:29 AM EDT) Glucometer, POC 394(H) 65 - 199 mg/dL 07/15/2024 12:30 AM EDT [facility] Comment:Supplemental ranges: <140 mg/dL before meals <180 mg/dL all other times of the day. Blood CAPILLARY BLOOD / Unknown 07/15/2024 12:29 AM EDT 07/15/2024 12:30 AM EDT Thony Garcia MD POINT OF CARE TEST O RDERABLES [facility] [place] [address] * CT Angiogram Aortic Lower Extremity Runoff (07/14/2024 11:57 PM EDT) WORKSTATION ID [id number] DH RAD Anatomical Region Laterality Modality Abdomen [...] who have questions please contact the health care technician that requested your imaging first. ? Electronically signed by: Geovanna Ray MD, [facility] ??([phone]), at 07/15/2024 1:13 AM Narrative 07/15/2024 1:13 AM EDT EXAMINATION: CT [...] 2.6 cm vessel length at and just [id number], similar to prior. Anterior tibial artery: No [...] the intravenous administration of contrast. 149 cc [id number]. Maximum intensity projection (MIP) were reformatted. 3-D [...] 2.6 cm vessel length at and just [id number], similar toprior. Anterior tibial artery: No stenosis. [...] patients who have questions please contactthe health care technician that requested your imaging first. Electronically signed by: Geovanna Ray MD, [facility]([phone]), at 07/15/2024 1:13 AM Thony Garcia MD IMG CT ORDERABLES * XR Foot Min 3 views Left (Generic) (07/14/2024 9:11 PM EDT) Fibroblast Signature WORKSTATION ID [id number] RAD Anatomical Region Laterality Modality Foot Left [...] who have questions please contact the health care technician that requested your imaging first. ? Electronically signed by: Geovanna Ray MD, [facility] ??([phone]), at 07/14/2024 10:26 PM Narrative 07/14/2024 10:26 PM EDT EXAMINATION: XR [...] patients who have questions please contactthe health care technician that requested your imaging first. Electronically signed by: Geovanna Ray MD, [facility]([phone]), at 07/14/2024 10:26 PM Arthur Patel DO IMG DX ORDERABLES * Lactate Whole Blood POC (07/14/2024 7:41 PM EDT) Lactate, Whole Blood 1.1 0.5 - 2.2 mmol/L 07/14/2024 7:42 PM EDT [facility] Blood ARTERIAL BLOOD / Unknown 07/14/2024 7:41 PM EDT 07/14/2024 7:42 PM EDT Unknown POINT OF CARE TEST O RDERABLES [facility] [place] [address] * (ABNORMAL) Basic Metabolic Panel (07/14/2024 7:39 PM EDT) Pathologist [facility] Glucose 341(H) 65 - 199 mg/dL 07/14/2024 8:13 PM EDT [facility] Comment:Glucose Concentratio n >=200 mg/dL plus symptoms is consistent with Diabetes Mellitus. Blood Urea Nitrogen 6(L) 10 - 20 mg/dL 07/14/2024 8:13 PM EDT [facility] Creatinine 0.53(L) 0.80 - 1.50 mg/dL 07/14/2024 8:13 PM EDT [facility] Sodium 137 135 - 145 mMol/L 07/14/2024 8:13 PM EDT [facility] Potassium 3.7 3.5 - 5.0 mMol/L 07/14/2024 8:13 PM EDT [facility] Chloride 101 98 - 107 mMol/L 07/14/2024 8:13 PM EDT [facility] Carbon Dioxide 23 22 - 31 mMol/L 07/14/2024 8:13 PM EDT [facility] Anion Gap 13 5 - 15 mMol/L 07/14/2024 8:13 PM EDT [facility] Calcium 8.6 8.5 - 10.5 mg/dL 07/14/2024 8:13 PM EDT [facility] Est Glomerular Filtration Rate - Male 122 mL/min/1. 73 m?? 07/14/2024 8:13 PM EDT [facility] Comment: This patient's estimated [...] PM EDT Arthur Patel DO CHEMISTRY ORDERABLES [facility] [place] [address] * (ABNORMAL) CBC (with Diff) (07/14/2024 7:39 PM EDT) White Blood Cell 8.69 4.00 - 9.50 x10(3)/mc L 07/14/2024 7:50 PM EDT [facility] Red Blood Cell 4.01(L) 4.58 - 5.54 x10(6)/mc L 07/14/2024 7:50 PM EDT [facility] Hemoglobin 11.7(L) 13.7 - 16.5 g/dL 07/14/2024 7:50 PM EDT [facility] Hematocrit 34.5(L) 40.5 - 48.5 % 07/14/2024 7:50 PM EDT [facility] Mean Cell Volume 86.0 82.9 - 93.1 fL 07/14/2024 7:50 PM EDT [facility] Mean Cell Hemoglobin 29.2 27.5 - 32.1 pg 07/14/2024 7:50 PM EDT [facility] Mean Cell Hemoglobin Concentration 33.9 32.0 - 35.7 g/dL 07/14/2024 7:50 PM [facility] Platelet 313 145 - 357 x10(3)/mc L 07/14/2024 7:50 PM [facility] Mean Platelet Volume 9.5 7.6 - 12.9 fL 07/14/2024 7:50 PM [facility] RDW Standard Deviation 39.5 36.0 - 45.0 fL 07/14/2024 7:50 PM [facility] RDW coefficient of variation 12.6 11.4 - 13.8 % 07/14/2024 7:50 PM [facility] NRBC% auto 0.0 % 07/14/2024 7:50 PM [facility] NRBC Absolute 0.00 0.00 - 0.00 x10(3)/mc L 07/14/2024 7:50 PM [facility] Neutrophil % 67.3 % 07/14/2024 7:50 PM [facility] Neutrophil Absolute (ANC) - Automated 5.85 1.70 - 6.10 x10(3)/mc L 07/14/2024 7:50 PM [facility] Lymph % 23.4 % 07/14/2024 7:50 PM [facility] Lymph Absolute 2.03 0.90 - 3.20 x10(3)/mc L 07/14/2024 7:50 PM [facility] Monocyte % 6.8 % 07/14/2024 7:50 PM [facility] Monocyte Absolute 0.59 0.30 - 0.90 x10(3)/mc L 07/14/2024 7:50 PM [facility] Eos % 1.7 % 07/14/2024 7:50 PM [facility] Eos Absolute 0.15 0.00 - 0.40 x10(3)/mc L 07/14/2024 7:50 PM EDT [facility] Basophil % 0.3 % 07/14/2024 7:50 PM EDT [facility] Baso Absolute 0.03 0.00 - 0.10 x10(3)/mc L 07/14/2024 7:50 PM EDT [facility] Immature Gran % 0.5 % 7:50 PM EDT [facility] Immature Gran Absolute 0.04 0.00 - 0.04 x10(3)/mc L 07/14/2024 7:50 PM EDT [facility] Blood VENOUS BLOOD SPECIMEN / Unknown Venipuncture / Unknown 07/14/2024 7:39 PM EDT 07/14/2024 7:46 PM EDT Arthur Patel DO HEMATOLOGY ORDERABLE S [facility] [place] [address] documented in this encounter Visit Diagnoses Diagnosis Peripheral artery disease- Primary Peripheral vascular disease, unspecified Cellulitis of foot, left Cellulitis and abscess of foot, except toes Peripheral artery disease Peripheral vascular disease, unspecified Critical limb ischemia of left lower extremity documented in this encounter Admitting Diagnoses Diagnosis Peripheral [...] with any scheduled bowel medications ordered., Routine ceFAZolin (Ancef) 2 g vial attach to sodium chloride 0.9% 100 mL Mini-Bag Plus 2 g, Intravenous, ONCE, 1 dose, On Angelita 07/20/24 at 0945, Administer over 30 Minutes, Redose every 4 hours if CrCl is greater than 20 mL/min. Redose every 8 hours if CrCl is less than 20 mL/min., Angio/IR (Day of Procedure), Indication for (Active or Suspected): Prophylaxis New Bag 07/20/2024 9:48 AM EDT 2 g 200 mL/ hr dextrose 10% infusion 250 mL, at 1,000 mL/hr, Intravenous, EVERY 15 MIN PRN, Starting on 07/16/24 at 0039, Until Wed07/21/24 at 2209, For [...] insulin orders before administering the next dose. fentaNYL (pf) (50 mcg/mL) multi-dose injection 25-50 mcg 25-50 mcg, Intravenous, EVERY 3 MIN PRN, [...] 50 mcg/dose, 250 mcg/hour, Angio/IR (Intra-Procedure), Routine Given 07/20/2024 10:02 AM EDT 25 mcg Given 07/20/2024 9:58 AM EDT 50 mcg Given 07/20/2024 9:48 AM EDT 25 mcg glucagon (Glucagen) (1 mg/mL) injection solution 1 [...] tube = 37.5 grams.), Routine heparin (porcine) (5,000 units/1 mL) subcutaneous injection 5,000 Units 5,000 Units, Subcutaneous, EVERY 8 HOURS SCHEDULED, First dose on Wed07/14/24 at 2225, Until Discontinued, Routine Given 07/15/2024 1:17 PM EDT 5,000 Unit s Given 07/15/2024 8:32 AM EDT 5,000 Units Given 07/15/2024 12:26 AM EDT 5,000 Units heparin (porcine) (5,000 units/1 mL) subcutaneous injection 5,000 Units 5,000 Units, Subcutaneous, EVERY 8 HOURS SCHEDULED, First dose on Wed07/19/24 at 2200, Until Discontinued, Routine Given 07/20/2024 1:21 PM EDT 5,000 Unit s Given 07/20/2024 6:25 AM EDT 5,000 Units Given 07/19/2024 9:11 PM EDT 5,000 Units heparin (porcine) 50 units/mL in dextrose 5% 500 mL infusion 0-5,000 Units/hr (0-100 mL/hr), Intravenous, CONTINUOUS, Starting on Wed07/15/24 at 1415, Until Wed07/19/24 at 1149, Begin infusion at 1,800 units [...] - Per Protocol , Routine New Bag 07/19/2024 2:16 AM EDT 1,700 Units/hr 34 mL/hr New Bag 07/18/2024 11:55 AM EDT 1,700 Units/hr 34 mL/hr New Bag 07/17/2024 9:03 PM EDT 1,700 Units/hr 34 mL/hr heparin (porcine) 50 units/mL in dextrose 5% 500 mL infusion 500 Units/hr (10 mL/hr), Intravenous, CONTINUOUS, Starting on Angelita 07/20/24 at 1630, Until Wed07/21/24 at 1613, Routine New Bag 07/20/2024 5:20 PM EDT 500 Units/hr 10 mL/hr insulin glargine-ygfn (Semglee) (100 unit/mL) subcutaneous injection vial 28 Units 28 Units, Subcutaneous, NIGHTLY, First dose on Wed07/16/24 at 0130, Until Discontinued, Routine Given 07/16/2024 1:21 AM EDT 28 Units insulin glargine-ygfn (Semglee) (100 unit/mL) subcutaneous injection vial 35 Units 35 Units, Subcutaneous, NIGHTLY, First dose on Wed07/14/24 at 2330, Until Discontinued, Routine Given 07/15/2024 12:32 AM EDT 35 Units insulin glargine-ygfn (Semglee) (100 unit/mL) subcutaneous injection vial 45 Units 45 Units, Subcutaneous, NIGHTLY, First dose (after last modification) on Wed07/16/24 at 2100, Until Discontinued, Routine Given 07/16/2024 8:50 PM EDT 45 Units insulin glargine-ygfn (Semglee) (100 unit/mL) subcutaneous injection vial 50 Units 50 Units, Subcutaneous, NIGHTLY, First dose (after last modification) on Wed07/17/24 at 2100, Until Discontinued, Routine Given 07/20/2024 8:19 PM EDT 50 Units Given 07/19/2024 8:08 PM EDT 50 Units Given 07/18/2024 9:00 PM EDT 50 Units insulin lispro (HumaLOG;Admelog) (100 unit/mL) subcutaneous injection vial 0-15 Units 0-15 Units, Subcutaneous, 3 TIMES DAILY WITH MEALS, First dose (after last modification) on Wed07/17/24 at 1200, Until Discontinued, MEAL ASSOCIATED Give 1 unit for every 5 grams carbohydrate. Hold if not eating or if BG less than 70 mg/dL. , Routine Given 07/17/2024 5:00 PM EDT 14 Units Right Arm Given 07/17/2024 1:11 PM EDT 13 Units insulin lispro (HumaLOG;Admelog) (100 unit/mL) subcutaneous injection vial 0-15 Units 0-15 Units, Subcutaneous, 3 TIMES DAILY PRN, Starting on Wed07/17/24 at 0916, Until Wed07/18/24 at 0727, with snacks, SNACK ASSOCIATED Give 1 unit for every 5 grams carbohydrate. Hold if not eating or if BG less than 70 mg/dL., Routine Given 07/18/2024 3:41 AM EDT 6 Units Given 07/17/2024 4:15 PM EDT 9 Units Le ft Arm insulin lispro (HumaLOG;Admelog) (100 unit/mL) subcutaneous injection [...] lispro (HumaLOG;Admelog) (100 unit/mL) subcutaneous injection vial 0-4 Units 0-4 Units, Subcutaneous, 3 TIMES DAILY PRN, Starting on 07/15/24 at 1530, Until 07/16/24 at 0038, with snacks, SNACK ASSOCIATED Give 1 unit for every 8 grams carbohydrate. Hold if not eating or if BG less than 70 mg/dL., Routine Given 07/15/2024 11:45 PM EDT 1 Units Given 07/15/2024 8:39 PM EDT 4 Units insulin lispro (HumaLOG;Admelog) (100 unit/mL) subcutaneous injection vial 0-8 Units 0-8 Units, Subcutaneous, 3 TIMES DAILY WITH MEALS, First dose on 07/15/24 at 1700, Until Discontinued, MEAL ASSOCIATED Give 1 unit: 8 grams of carbohydrate Hold if not eating or if BG less than 70 mg/dL., Routine Given 07/15/2024 4:46 PM EDT 4 Units insulin lispro (HumaLOG;Admelog) (100 unit/mL) subcutaneous injection vial 0-8 Units 0-8 Units, Subcutaneous, 3 TIMES DAILY WITH MEALS, First dose on Wed07/16/24 at 0800, Until Discontinued, MEAL ASSOCIATED Give 1 unit for every 6 grams carbohydrate. Hold if not eating or if BG less than 70 mg/dL. , Routine Given 07/17/2024 8:23 AM EDT 8 Units Given 07/16/2024 6:05 PM EDT 7 Units Given 07/16/2024 2:02 PM EDT 8 Units insulin lispro (HumaLOG;Admelog) [...] Given 07/21/2024 4:09 AM EDT 2 Units insulin lispro (HumaLOG;Admelog) (100 unit/mL) subcutaneous injection vial 1-6 Units 1-6 Units, Subcutaneous, 3 TIMES DAILY BEFORE MEALS, First dose on 07/15/24 at 1630, Until Discontinued, CORRECTION BOLUS [1-6 Units] Moderate [...] 240 mg/dL in 2 hours., Routine Given 07/15/2024 4:45 PM EDT 6 Units insulin lispro (HumaLOG;Admelog) (100 unit/mL) subcutaneous injection vial 1-6 Units 1-6 Units, Subcutaneous, EVERY 4 HOURS, First dose (after last modification) on 07/15/24 at 2200, Until Discontinued, CORRECTION BOLUS [1-6 Units] Moderate [...] 240 mg/dL in 2 hours., Routine Given 07/16/2024 12:06 AM EDT 6 Units Given 07/15/2024 10:02 PM EDT 6 Units insulin lispro (HumaLOG;Admelog) (100 unit/mL) subcutaneous injection vial 1-6 Units 1-6 Units, Subcutaneous, EVERY 4 HOURS SCHEDULED, First dose (after last modification) on 07/16/24 at 0400, Until Discontinued, CORRECTION BOLUS [1-6 Units] Moderate [...] 240 mg/dL in 2 hours., Routine Given 07/18/2024 3:22 AM EDT 4 Units Given 07/18/2024 12:44 AM EDT 4 Units Given 07/17/2024 9:11 PM EDT 6 Units insulin lispro (HumaLOG;Admelog) (100 unit/mL) subcutaneous injection vial 2-12 Units 2-12 Units, Subcutaneous, EVERY 4 HOURS SCHEDULED, First dose on 07/15/24 at 0000, Until Discontinued, CORRECTION BOLUS [2-12 Units] Resistant Sliding Scale (BG in mg/dL) Correction Factor 10 (1 unit of insulin is expected to drop the glucose 10 mg/dL) ?? BG 140 - 160 Give 2 units BG 161 - 180 Give 4 units BG 181 - 200 Give 6 units BG 201 - 220 Give 8 units BG 221 - 240 Give 10 units BG greater than 240, give 12 units and recheck BG in 2 hours. - If recheck BG is LESS than 240, give no insulin and resume schedule. - If recheck BG is GREATER than or EQUAL to 240, give 12 units and repeat BG in 2 hours (no more than 3 times) & call for new insulin orders. DO NOT hold if NPO, unless specifically directed to do so by written order. ?? Per Inpatient Subcutaneous Insulin Policy, recheck a BG of greater than 240 mg/dL in 2 hours, Routine Given 07/15/2024 1:18 PM EDT 10 Units Given 07/15/2024 8:35 AM EDT 2 Units Given 07/15/2024 4:45 AM EDT 10 Units iodixanoL (Visipaque) (320 mg/mL) injection solution 1-400 mL 1-400 mL, Intra-arterial, ONCE, 1 dose, On Angelita 07/20/24 at 1015, For intra-procedural use by proceduralist., Angio/IR (Intra-Procedure), Routine Given 07/20/2024 10:15 AM EDT 30 mLs iohexoL (Omnipaque) (350 mg/mL) solution 0-200 mL 0-200 mL, Intravenous, ONCE PRN, 1 dose, Starting on Wed07/14/24 at 2357, Until Wed07/14/24 at 2358, Per Protocol, Warning Vesicant/Irritant Medication , Radiology Contrast, Routine Given 07/14/2024 11:58 PM EDT 149 mLs lactulose (Chronulac) (0.67 gram/mL) oral liquid 20 [...] any scheduled bowel medications ordered. , Routine lidocaine (Xylocaine) 1% (10 mg/mL) injection 10 mg 10 mg, Subcutaneous, ONCE, 1 dose, On Angelita 07/20/24 at 0945, For use in Interventional Radiology (IR) only for procedure with direct provider supervision and verbal order., Angio/IR (Intra-Procedure), Routine Given 07/20/2024 9:57 AM EDT 10 mg 20-Other (document i n comment section) losartan (Cozaar) tablet 50 mg 50 mg, [...] with any scheduled bowel medications ordered., Routine magnesium sulfate 2 g in sterile water 50 mL infusion 2 g, Intravenous, ONCE, 1 dose, On 07/17/24 at 0615, Administer over 120 Minutes New Bag 07/17/2024 6:24 AM EDT 2 g 25 mL/hr metoprolol succinate XL (Toprol-XL) tablet 25 mg 25 mg, Oral, DAILY, First dose on 07/15/24 at 0900, Until Discontinued, DO NOT CRUSH OR OPEN, Routine Given 07/21/2024 9:50 AM EDT 25 mg Given 07/20/2024 1:21 PM EDT 25 mg Given 07/19/2024 1:03 PM EDT 25 mg midazolam (pf) (Versed) (1 mg/mL) multi-dose injection 0.5-1 mg 0.5-1 mg, Intravenous, EVERY 3 MIN PRN, [...] 1 mg/dose, 5 mg/hour., Angio/IR (Intra-Procedure), Routine Given 07/20/2024 10:02 AM EDT 0.5 mg Given 07/20/2024 9:59 AM EDT 0.5 mg Given 07/20/2024 9:49 AM EDT 1 mg ondansetron (pf) (Zofran) (2 mg/mL) injection 4 mg 4 mg, Intravenous, EVERY 8 HOURS PRN, Starting on 07/14/24 at 2208, Until Wed07/21/24 at 2209, Nausea, [...] in 45 minutes if ineffective. , Routine oxyCODONE (Roxicodone) tablet 5 mg 5 mg, Oral, ONCE PRN, 1 dose, Starting on Angelita 07/20/24 at 0356, Until Angelita 07/20/24 at 0412, Pain, Routine Given 07/20/2024 4:12 AM EDT 5 mg pantoprazole EC (Protonix) tablet 40 mg 40 mg, Oral, DAILY, First dose on Wed07/15/24 at 0900, Until Discontinued Given 07/21/2024 9:50 AM EDT 40 mg Given 07/20/2024 1:21 PM EDT 40 mg Given 07/18/2024 8:37 AM EDT 40 mg piperacillin-tazobactam (Zosyn) 3.375 g vial attach to sodium chloride 0.9% 50 mL Mini-Bag Plus 3.375 g, Intravenous, [employer]EL[employer] TO O.R., 1 dose, On Wed07/14/24 at 2330, Administer over 4 Hours, Warning Vesicant/Irritant Medication Do not administer or Y-site with lactated ringers., Indication for (Active or Suspected): Skin/Skin Structure New Bag 07/14/2024 10:43 PM EDT 3.375 g 12.5 mL/hr piperacillin-tazobactam (Zosyn) 3.375 g vial attach to sodium chloride 0.9% 50 mL Mini-Bag Plus 3.375 g, Intravenous, EVERY 8 HOURS, First dose on Wed07/16/24 at 1230, Until Discontinued, Administer over 4 Hours, Warning Vesicant/Irritant Medication Per weaver hand labeling, do not administer or Y-site with [...] any scheduled bowel medications ordered. , Routine potassium chloride 10 mEq in sterile water 100 mL infusion 10 mEq, Intravenous, EVERY 2 HOURS, 2 doses, First dose on Wed07/16/24 at 1130, Last dose on Wed07/16/24 at 1330, Administer over 60 Minutes, Warning Vesicant/Irritant Medication New Bag 07/16/2024 11:37 AM EDT 10 mEq 100 mL/hr potassium chloride ER (Klor-Con M) crystal tablet 20 mEq 20 mEq, Oral, ONCE, 1 dose, On Wed07/16/24 at 1130, 20 mEq tablet may be dissolved in water for administration potassium chloride ER particle/crystal tablets (Klor-Con M) may be broken in half and each half swallowed separately. Tablets can be dissolved in ~4 ounces of water; allow ~2 minutes to dissolve, stir well and drink immediately. Do not crush, chew, or suck on tablet., Routine Given 07/16/2024 11:36 AM EDT 20 mEq potassium chloride ER (Klor-Con M) crystal tablet 40 mEq 40 mEq, Oral, ONCE, 1 dose, On Wed07/16/24 at 1300, May dissolve if unable to swallow ER tablet. potassium chloride ER particle/crystal tablets (Klor-Con M) may be broken in half and each half swallowed separately. Tablets can be dissolved in ~4 ounces of water; allow ~2 minutes to dissolve, stir well and drink immediately. Do not crush, chew, or suck on tablet., Routine Given 07/16/2024 12:26 PM EDT 40 mEq potassium chloride ER (Klor-Con M) crystal tablet 40 mEq 40 mEq, Oral, ONCE, 1 dose, On Wed07/17/24 at 0615, potassium chloride ER particle/crystal tablets (Klor-Con M) may be broken in half and each half swallowed separately. Tablets can be dissolved in ~4 ounces of water; allow ~2 minutes to dissolve, stir well and drink immediately. Do not crush, chew, or suck on tablet., Routine Given 07/17/2024 6:24 AM EDT 40 mEq prochlorperazine (Compazine) (5 mg/mL) injection 10 mg [...] Given 07/19/2024 8:08 PM EDT 5 mLs vancomycin (Vancocin) 1.25 gram in dextrose 5% 250 mL infusion 1.25 g, Intravenous, at 200 mL/hr, EVERY 8 HOURS, First dose on Wed07/14/24 at 2300, Until Discontinued, Maximum infusion rate is 1 gram/hour. If flushing of the face, neck, upper body, arms, and/or back occurs decrease infusion rate by 50% to reduce the severity of symptoms. This medication may have an associated drug lab level. Please see MAR for scheduled level. Warning Vesicant/Irritant Medication , Routine, Indication for (Active or Suspected): Skin/Skin Structure New Bag 07/18/2024 8:35 AM EDT 1.25 g 200 mL/hr New Bag 07/18/2024 2:43 AM EDT 1.25 g 200 mL/hr New Bag 07/17/2024 4:08 PM EDT 1.25 g 200 mL/hr venlafaxine (Effexor) tablet 225 mg 225 mg, [...] 81 mg, Oral, DAILY, First dose on Wed07/15/24 at 0900, Until Discontinued, Routine 0857 (MAR Hold - Provider: Admin Adt - Reason: Transfer to a Procedural area)0900 (Automatically Held - Provider: Admin Adt)1206 (MAR Unhold - Provider: Admin Adt)1303 (Given - Provider: Enid Johnson LPN) 1321 (Given - Provider: Lauren Zavala RN) 0951 (Given - Provider: Nava Huggins, DAVID) atorvastatin (Lipitor) tablet 80 mg 80 mg, Oral, EVERY EVENING, First dose on Wed07/14/24 at 2225, Until Discontinued, Routine 0857 (MAR Hold - Provider: Admin Adt - Reason: Transfer to a Procedural area)1206 (JAN Unhold - Provider: Admin Adt)1725 (Given - Provider: Gavin Rudd, RN) 1613 (Given - Provider: Jaja Diallo, RN) 1714 (Given - Provider: Nava Huggins, DAVID) ceFAZolin (Ancef) 2 g vial attach to sodium chloride 0.9% 100 mL Mini-Bag Plus (COMPLETED) 2 g, Intravenous, ONCE, 1 dose, On Wed07/20/24 at 0945, Administer over 30 Minutes, Redose every 4 hours if CrCl is greater than 20 mL/min. Redose every 8 hours if CrCl is less than 20 mL/min., Angio/IR (Day of Procedure), Indication for (Active or Suspected): Prophylaxis 0948 (New Bag - Provider: Hailey Nick, RN)1018 (Stopped - Provider: Lauren Zavala, RN) heparin (porcine) (5,000 units/1 mL) subcutaneous injection 5,000 Units (CANCELED) 5,000 Units, Subcutaneous, EVERY 8 HOURS SCHEDULED, First dose on Wed07/19/24 at 2200, Until Discontinued, Routine 2111 (Given - Provider: Anabel Jonas, RN) 0625 (Given - Provider: Anabel Jonas, RN)1321 (Given - Provider: Lauren Zavala, DAVID) insulin glargine-ygfn (Semglee) (100 unit/mL) subcutaneous [...] Routine 0800 (Not Given - Provider: Gavin Rudd RN - Reason: NPO)0857 (MAR Hold - Provider: Admin Adt - Reason: Transfer to a Procedural area)1200 (Automatically Held - Provider: Admin Adt)1206 (MAR Unhold - Provider: Admin Adt)1800 (Given - Provider: Gavin Rudd, DAVID) 0800 (Not Given - Provider: Lauren Zavala, DAVID - Reason: NPO)1400 (Given - Provider: Lauren Zavala, DAVID)1757 (Given - Provider: Lauren Zavala, RN) 0957 (Given - Provider: Nava Huggins, RN)1305 [...] Admin Adt)1725 (Given - Provider: Gavin Rudd, RN - Comment: [phone])1939 (Given - Provider: Anabel Jonas, RN - Comment: [phone] (Given - Provider: Anabel Jonas, RN - Comment: [phone]) 0101 (Given - Provider: Marycruz Tirado RN - Comment: 2 hr recheck [phone])0342 (Given - Provider: Anabel Jonas RN - Comment: [phone])0800 (Not Given - Provider: Lauren Zavala RN - Reason: Order parameters not met)1200 (Not Given - Provider: Lauren Zavala RN - Reason: Order parameters not met)1614 (Given - Provider: Jaja Diallo RN)2018 (Given - Provider: Anabel Jonas RN - Comment: [phone]) 0005 (Given - Provider: Carlos Enrique Knowles RN)0409 (Given - Provider: Carlos Enrique Knowles RN)0956 (Given - Provider: Nava Huggins, RN - Comment: [phone])1305 (Given - Provider: Nava Huggins, DAVID)1600 (Due) iodixanoL (Visipaque) (320 mg/mL) injection solution [...] supervision and verbal order., Angio/IR (Intra-Procedure), Routine 09 (Given - Provider: Dolly Dan MD - [...] Admin Adt) 1321 (Given - Provider: Lauren Zavala, DAVID) 0950 (Given - Provider: Nava Huggins, DAVID) piperacillin-tazobactam (Zosyn) 3.375 g vial attach to sodium chloride 0.9% 50 mL Mini-Bag Plus 3.375 g, Intravenous, EVERY 8 HOURS, First dose on 07/16/24 at 1230, Until Discontinued, Administer over 4 Hours, Warning Vesicant/Irritant Medication Per weaver hand labeling, do not administer or Y-site with lactated ringers., Indication for (Active or Suspected): Sinusitis/Pharyngitis 0147 (Stopped - Provider: Cecilia Cm RN)0419 (New Bag - Provider: Cecilia Cm RN)0819 (Stopped - Provider: Gavin Rudd RN)0857 (JAN Hold - Provider: Admin Adt - Reason: Transfer to a Procedural area)1206 (MAR Unhold - Provider: Admin Adt)1305 (New Bag - Provider: Enid Johnson LPN)1705 (Stopped - Provider: Gavin Rudd RN)1939 (New Bag - Provider: Anabel Jonas RN)2341 (Stopped - Provider: Anabel Jonas, RN) 0412 (New Bag - Provider: Anabel Jonas RN)0812 (Stopped - Provider: Lauren Zavala RN)1302 (New Bag - Provider: Lauren Zavala RN)1702 (Stopped - Provider: Lauren Zavala, DAVID)203 (New Bag - Provider: Anabel Jonas RN) 0037 (Stopped - Provider: Carlos Enrique Knowles RN)0409 (New Bag - Provider: Carlos Enrique Knowles RN)0809 (Stopped - Provider: Nava Huggins, DAVID)1307 (New Bag - Provider: Nava Huggins RN)1707 (Stopped - Provider: Nava Huggins RN) protriptyline (Vivactil) tablet 10 mg 10 mg, Oral, 3 TIMES DAILY, First dose on Wed07/17/24 at 1200, Until Discontinued, Routine 0857 (MAR Hold - [...] next dose)1613 (Given - Provider: Jaja Diallo RN)2027 (Given - Provider: Anabel Jonas RN) 1109 (Given - Provider: Nava Huggins RN - Comment: missing medication rx notified)1522 (Given - Provider: Nava Huggins RN) rivaroxaban (Xarelto) tablet 20 mg 20 mg, Oral, DAILY, First dose on Wed07/21/24 at 1730, Until Discontinued, Routine, rivaroxaban (Xarelto) Indication: Peripheral Artery Disease, Stable 175 (Given - Provider: Nava Huggins, RN) senna-docusate (Pericolace) 8.6-50 mg per tablet 2 tablet 2 tablet, Oral, 2 TIMES DAILY, First dose on Wed07/15/24 at 1450, Until Discontinued, Hold for loose stool. , Routine 0857 (JAN Hold - Provider: Admin Adt - Reason: Transfer to a Procedural area)0900 (Automatically Held - Provider: Admin Adt)1206 (JAN Unhold - Provider: Admin Adt)1304 (Not Given - Provider: Enid Johnson LPN - Reason: Patient/family refused)2100 (Not Given - Provider: Anabel Jonas RN - Reason: Patient/family refused) 132 (Given - Provider: Lauren Zavala, DAVID)2026 (Given - Provider: Anabel Jonas RN) 0950 (Given - Provider: Nava Huggins, DAVID) sodium chloride 0.9 % (flush) (BD PosiFlush Normal Saline 0.9) flush 5 mL 5 mL, Intravenous, 2 TIMES DAILY, First dose on Wed07/14/24 at 2225, Until Discontinued, Routine 0857 (JAN Hold - Provider: Admin Adt - Reason: Transfer to a Procedural area)0900 (Automatically Held - Provider: Admin Adt)1206 (JAN Unhold - Provider: Admin Adt)2007 (Given - Provider: Anabel Jonas RN) 0900 (Due)2099 (Given - Provider: Anabel Jonas RN) 0954 (Given - Provider: Nava Huggins, RN) venlafaxine (Effexor) tablet 225 mg 225 mg, Oral, DAILY, First dose on Wed07/17/24 at 0900, Until Discontinued, Routine 0857 (JAN Hold - Provider: Admin Adt - Reason: Transfer to a Procedural area)0900 (Automatically Held - Provider: Admin Adt)1206 (JAN Unhold - Provider: Admin Adt)1306 (Given - Provider: Enid Johnson LPN) 1322 (Given - Provider: Lauren Zavala, DAVID) 1111 (Given - Provider: Nava Huggins RN - Comment: missing medication rx notified) [...] 0216 (New Bag - Provider: Lindsey Haddad RN)0816 (JAN Hold - Provider: Admin Adt - [...] Routine 1720 (New Bag - Provider: Lauren Zavala, RN) 1759 (Stopped - Provider: Nava Huggins, [...] Provider: Admin Adt)2305 (Given - Provider: Anabel Jonas, DAVID) 0409 (Given - Provider: Carlos Enrique Knowles, RN)0954 (Given - Provider: Nava Huggins, DAVID) bisacodyL (Dulcolax) suppository 10 mg(Linked Group 3) [...] area)1206 (JAN Unhold - Provider: Admin Adt) bisacodyl EC [...] area)1206 (JAN Unhold - Provider: Admin Adt) BUPivacaine (pf) [...] Routine 0948 (Given - Provider: Hailey Nick, RN)0958 (Given - Provider: Hailey Nick, RN)1002 (Given - Provider: Hailey Nick, RN) glucagon (Glucagen) (1 mg/mL) injection solution 1 [...] administering the next dose. , Routine 0857 (MAR Hold - Provider: [...] of tube = 37.5 grams.), Routine 0857 (JAN Hold - Provider: Admin Adt - Reason: Transfer to a Procedural area)1206 ([facility] Unhold - Provider: Admin Adt) insulin lispro (HumaLOG;Admelog) (100 unit/mL) subcutaneous injection vial 0-20 Units 0-20 Units, Subcutaneous, 3 TIMES DAILY PRN, Starting on Wed07/18/24 at 0726, Until Wed07/21/24 at 2209, with snacks, [employer]NACK [employer] Give 1 unit for every 4 grams carbohydrate. Hold if not eating or if BG less than 70 mg/dL., Routine 0857 (JAN Hold - Provider: Admin Adt - Reason: Transfer to a Procedural area)1206 ([facility] Unhold - Provider: Admin Adt) lactulose (Chronulac) (0.67 gram/mL) oral liquid 20 g(Linked Group 3) 20 g, Oral, DAILY PRN, Starting on 07/15/24 at 1431, Until Wed07/21/24 at 2209, Constipation, Give if no BM 24 hr after prior interventions or if BM is desired within 2 hr. Give concomitantly with any scheduled bowel medications ordered, Routine 0857 ([facility] Hold - Provider: Admin Adt - Reason: Transfer to a Procedural area)1206 ([facility] Unhold - Provider: Admin Adt) lactulose (Chronulac) [...] scheduled bowel medications ordered. , Routine 0857 ([facility] Hold - Provider: Admin Adt - Reason: Transfer to a Procedural area)1206 ([facility] Unhold - Provider: Admin Adt) lidocaine (Xylocaine) 1% (10 mg/mL) injection 3 mg 3 mg (0.3 mL), Subcutaneous, ONCE PRN, 1 dose, Starting on Wed07/14/24 at 2208, Until Wed07/21/24 at 2209, for discomfort with PIV insertion, Routine 0857 ([facility] Hold - Provider: Admin Adt - Reason: Transfer to a Procedural area)1206 ([facility] Unhold - Provider: Admin Adt) magnesium citrate [...] any scheduled bowel medications ordered., Routine 0857 ([facility] Hold - Provider: Admin Adt - Reason: Transfer to a Procedural area)1206 ([facility] Unhold - Provider: Admin Adt) melatonin tablet 3 mg 3 mg, Oral, NIGHTLY PRN, Starting on Wed07/14/24 at 2208, Until Wed07/21/24 at 2209, Sleep, Sleep, Routine 0857 (JAN Hold - Provider: Admin Adt - Reason: Transfer to a Procedural area)1206 (JAN Unhold - Provider: Admin Adt) midazolam (pf) [...] Routine 0949 (Given - Provider: Hailey Nick, RN)0959 (Given - Provider: Hailey Nick, RN)1002 (Given - Provider: Hailey Nick, RN) ondansetron (pf) (Zofran) (2 mg/mL) injection 4 mg(Linked Group 5) 4 mg, Intravenous, EVERY 8 HOURS PRN, Starting on Wed07/14/24 at 2208, Until Wed07/21/24 at 2209, Nausea, 4 mg,Oral,EVERY 8 HOURS PRN, Nausea,Vomiting If multiple antiemetics are ordered, use ondansetron first. May repeat times one in 30 minutes if ineffective. 0857 (JAN Hold - Provider: Admin Adt - Reason: Transfer to a Procedural area)1206 (JAN Unhold - Provider: Admin Adt) ondansetron ODT (Zofran-ODT) disintegrating tablet 4 mg(Linked Group 5) 4 mg, Oral, EVERY 8 HOURS PRN, Starting on Wed07/14/24 at 2208, Until Wed07/21/24 at 2209, Nausea, If multiple antiemetics are ordered, use ondansetron first. PO Preferred. If patient unable to take PO, may give IV if ordered. May repeat times one in 45 minutes if ineffective. , Routine 0857 ([facility] Hold - Provider: Admin Adt - Reason: Transfer to a Procedural area)1206 ([facility] Unhold - Provider: Admin Adt) oxyCODONE (Roxicodone) tablet 5 mg (COMPLETED) 5 mg, Oral, ONCE PRN, 1 dose, Starting on Angelita 07/20/24 at 0356, Until Angelita 07/20/24 at 0412, Pain, Routine 0412 (Given - Provider: Aanbel Jonas RN) polyethylene glycoL (Miralax) packet 17 g(Linked Group 3) 17 g, Oral, DAILY PRN, Starting on 07/15/24 at 1431, Until 07/21/24 at 2209, Constipation, Give if no BM within last 24 hr. Give concomitantly with any scheduled bowel medications ordered. , Routine 0857 ([facility] Hold - Provider: Admin Adt - Reason: Transfer to a Procedural area)1206 ([facility] Unhold - Provider: Admin Adt) prochlorperazine (Compazine) (5 mg/mL) injection 10 mg(Linked Group 6) 10 mg, Intravenous, EVERY 6 HOURS PRN, Starting on Wed07/14/24 at 2208, Until Wed07/21/24 at 2209, Nausea, Nausea/Vomiting, If multiple antiemetics are ordered, use ondansetron first. If ondansetron ineffective use prochlorperazine. Only give IV if unable to take PO, Routine 0857 ([facility] Hold - Provider: Admin Adt - Reason: Transfer to a Procedural area)1206 ([facility] Unhold - Provider: Admin Adt) prochlorperazine (Compazine) tablet 10 mg(Linked Group 6) 10 mg, Oral, EVERY 6 HOURS PRN, Starting on Wed07/14/24 at 2208, Until Wed07/21/24 at 2209, Nausea, Nausea/Vomiting, If multiple antiemetics are ordered, use ondansetron first. If ondansetron ineffective use prochlorperazine. PO Preferred. If patient unable to take PO, may give IV if ordered., Routine 0857 ([facility] Hold - Provider: Admin Adt - Reason: Transfer to a Procedural area)1206 ([facility] Unhold - Provider: Admin Adt) sodium chloride [...] CONTINUOUS, Starting on 07/15/24 at 1415, Until Wed07/19/24 at 1149, Begin infusion at 1,800 units [...] PROTOCOL, Starting on 07/15/24 at 1359, Until Wed07/19/24 at 1149, Per Protocol, START ADJUSTMENT SCHEDULE [...] on 07/15/24 at 1431, Until Wed07/21/24 at 2208, Constipation, Give if no BM within last 24 hr. Give concomitantly with any scheduled bowel medications ordered. , Routine And bisacodyL (Dulcolax) suppository 10 mgJump to med 10 mg, Rectal, DAILY PRN, Starting on 07/15/24 at 1431, Until Wed07/21/24 at 2208, Constipation, Give if no BM within last 24 hr and rectal fullness is reported or assessed. Give concomitantly with any scheduled bowel medications ordered. , Routine And bisacodyl EC (Dulcolax) tablet 10 mgJump to med 10 mg, Oral, 2 TIMES DAILY PRN, Starting on 07/15/24 at 1431, Until Wed07/21/24 at 2208, Constipation, Give if no BM after 24 hr after prior interventions. BM expected in 6-8 hours. If BM desired sooner, use next ordered agent. Give concomitantly with any scheduled bowel medications ordered., Routine And lactulose (Chronulac) (0.67 gram/mL) oral liquid 20 gJump to med 20 g, Oral, DAILY PRN, Starting on 07/15/24 at 1431, Until Wed07/21/24 at 220, Constipation, Give if no BM 24 hr after prior interventions or if BM is desired within 2 hr. Give concomitantly with any scheduled bowel medications ordered, Routine And lactulose (Chronulac) (0.67 gram/mL) oral liquid 20 gJump to med 20 g, Oral, DAILY PRN, Starting on 07/15/24 at 1431, Until Wed07/21/24 at 220, Constipation, Give an additional (2nd) dose of [...] at 2208, Until Wed07/21/24 at 220, Nausea, If multiple antiemetics are ordered, use [...] Routine documented in this encounter Care Teams Software Engineer Developer Relationship Specialty Start Date End Date None None PCP - General 05/27/24 documented as of this encounter
--- OUTSIDE RECORDS SUMMARY | 2024-07-25 15:02 | XMS_ITS | Encounter Summary ---
Author Organization [facility] Address [facility] [place] [address] Care Team Providers Care Electric Range Assembler Name Role Phone Guanako Gusman MD Primary Care Provider [phone] Reason for Visit * Reason Comments Medication Refill Encounter Details Date Type Department Care Team (Late st Contact Info) Description 12/29/2014 Refill Cardiology at [address] [phone] Amy Joshi PA [facility] [address] Medication Refill Social History Tobacco Use Types [...] AM EDT Hospital Encounter [place] [phone] Lisette Maldonado MD [facility] [place] [address] 08/01/2024 7:30 AM EDT - 08/01/2024 1:43 PM EDT Surgery [place] [address] Lisette Maldonado MD [facility] [place] [address] @BYPASS GRAFT, FEM-ANT TIBIAL, -POST TIBIAL, -PERONEAL, -DP W\ SYNTHETIC CONDUIT (WRVU 23.66) Scheduled Procedures Name Priority Associated Diagnoses Date/Ti me @BYPASS GRAFT, FEM-ANT TIBIA L, -POST TIBIAL, -PERONEAL, -DP W\ SYNTHETIC CONDUIT (WRVU 23.66) [facility]TI 08/01/2024 7:30 AM EDT documented as of this encounter Visit Diagnoses Not on filedocumented in this encounter Care Teams Electric Range Assembler Relationship Specialty Start Date End Date Guanako Gusman MD [address] [facility] [place] [address] PCP - General 02/27/19 05/26/24 documented as of this encounter
--- OUTSIDE RECORDS SUMMARY | 2024-07-25 15:02 | XMS_ITS | Encounter Summary ---
Author Organization [facility] Address [facility] [place] [address] Care Team Providers Care Electric Crane Operator Name Role Phone None Primary Care Provider Unavailabl e Encounter Details Date Type Department Care Team (Late st Contact Info) Description 05/28/2024 Telephone [place] [phone] Dolly Dan MD [facility] [place] [address] Social History Tobacco Use Types Packs/Day Years Used Date Smoking Tobacco: Every Day Cigarettes 1 25 Started: 12/28/1986; Last attempted to quit: 12/28/2011 Alcohol Use Standard Drinks/Week Comments No 0 (1 standard drink = 0.6 oz pur e alcohol) [facility] Utilities Answer Date Recorded In the past 12 months has [facility] [employer], gas, oil, or water [employer] threatened to shut off services in your [...] any time in the past 12 m [facility], were you homeless or living [...] PM EDT I received a call from [facility] regarding Lux Dixon. This is a 49-year-old [...] intact. The patient will be transferred to [facility] ED for further evaluation and determine whether his symptoms are related to vascular disease. documented in this encounter Plan of Treatment Upcoming Encounters Date Type Department Care Team (Latest Contact Info) Description 08/01/2024 7:30 AM EDT Hospital Encounter [place] [address] Lisette Maldonado MD [facility] [place] [address] 08/01/2024 7:30 AM EDT - 08/01/2024 1:43 PM EDT Surgery [place] [address] Lisette Maldonado MD [facility] [place] [address] @BYPASS GRAFT, FEM-ANT TIBIAL, -POST TIBIAL, -PERONEAL, -DP W\ SYNTHETIC CONDUIT (WRVU 23.66) Scheduled Procedures Name Priority Associated Diagnoses Date/Ti me @BYPASS GRAFT, FEM-ANT TIBIA L, -POST TIBIAL, -PERONEAL, -DP W\ SYNTHETIC CONDUIT (WRVU 23.66) [facility] 08/01/2024 7:30 AM EDT documented as of this encounter Visit Diagnoses Not on filedocumented in this encounter Care Teams Electric Crane Operator Relationship Specialty Start Date End Date None None PCP - General 05/27/24 documented as of this encounter
--- OUTSIDE RECORDS SUMMARY | 2024-07-25 15:02 | XMS_ITS | Encounter Summary ---
Author Organization [facility] Address [facility] [place] [address] Care Team Providers Care Environmental Health And Safety Intern Name Role Phone None Primary Care Provider Unavailabl e Encounter Details Date Type Department Care Team (Late st Contact Info) Description 05/28/2024 11:55 AM EDT Ancillary Procedure Radiology Library at [facility] [place] [address] Jerry Marin MD [facility] [place] [address] Social History Tobacco Use Types Packs/Day Years Used Date Smoking Tobacco: Every Day Cigarettes 1 25 Started: 12/28/1986; Last attempted to quit: 12/28/2011 Alcohol Use Standard Drinks/Week Comments No 0 (1 standard drink = 0.6 oz pur e alcohol) [facility] Utilities Answer Date Recorded In the past 12 months has e [employer], gas, oil, or water [employer] threatened to shut off services in your [...] were you homeless or living in a mcfp (including now)? No 05/29/2024 DH IPV Inpatient [...] AM EDT Hospital Encounter [place] [address] Lisette Maldonado MD [facility] [place] [address] 08/01/2024 7:30 AM EDT - 08/01/2024 1:43 PM EDT Surgery [place] [address] Lisette Maldonado MD [facility] [place] [address] @BYPASS GRAFT, FEM-ANT TIBIAL, -POST TIBIAL, -PERONEAL, [...] & Pelvis (05/28/2024 11:50 AM EDT) Narrative VICKIE - 05/28/2024 11:50 AM EDT This exam is auto-finalizing. It's purpose is for storage only. Jerry Marin MD IMG FILM LIBRARY ORD ERABLES Performing Organization Address City/State/[facility] Co de Phone Number [place], [place] documented in this encounter Visit Diagnoses Not on filedocumented in this encounter Care Teams Environmental Health And Safety Intern Relationship Specialty Start Date End Date None None PCP - General 05/27/24 documented as of this encounter
--- OUTSIDE RECORDS SUMMARY | 2024-07-25 15:02 | XMS_ITS | Encounter Summary ---
Author Organization [facility] Address [facility] [place] [address] Care Team Providers Care Weatherization Installer Name Role Phone None Primary Care Provider Unavailabl e Encounter Details Date Type Department Care Team (Latest Contact Info) Description 05/30/2024 Travel Social History Tobacco Use Types Packs/Day Years Used Date Smoking Tobacco: Every Day Cigarettes 1 25 Started: 12/28/1986; Last attempted to quit: 12/28/2011 Alcohol Use Standard Drinks/Week Comments No 0 (1 standard drink = 0.6 oz pur e alcohol) [facility] Utilities Answer Date Recorded In the [...] any time in the past 12 m [facility], were you homeless or living in a alf (including now)? No 05/29/2024 DH IPV Inpatient [...] AM EDT Hospital Encounter [place] [address] Lisette Maldonado MD [facility] [place] [place] [address] 08/01/2024 7:30 AM EDT - 08/01/2024 1:43 PM EDT Surgery [place] [address] Lisette Maldonado MD [facility] [place] [address] @BYPASS GRAFT, FEM-ANT TIBIAL, -POST TIBIAL, -PERONEAL, -DP W\ SYNTHETIC CONDUIT (WRVU 23.66) Scheduled Procedures Name Priority Associated Diagnoses Date/Ti me @BYPASS GRAFT, FEM-ANT TIBIA L, -POST TIBIAL, -PERONEAL, -DP W\ SYNTHETIC CONDUIT (WRVU 23.66) [facility]TI 08/01/2024 7:30 AM EDT documented as of this encounter Visit Diagnoses Not on filedocumented in this encounter Care Teams Weatherization Installer Relationship Specialty Start Date End Date None None PCP - General 05/27/24 documented as of this encounter
--- OUTSIDE RECORDS SUMMARY | 2024-07-25 15:02 | XMS_ITS | Encounter Summary ---
Author Organization [facility] [place] [address] Care Team Providers Care Box Turner Name Role Phone None Primary Care Provider Unavailabl e Reason for Referral * Diagnostic Test (Routine) - Authorized Specialty Diagnoses / Procedures Referred By Contac t Referred To Contact Diagnoses Limb ischemia Critical limb ischemia of left lower extremity Procedures Arterial Duplex Leg, Unil Preston Dee MD [facility] [place] [address] [facility] Vascular Lab [address] [place] [phone] Referral ID Status Reason Start Date Expiration Date Visits Requested Visits Authorized [id number] Authorized Specialty Service Requested 06/02/2024 06/02/2025 1 1 * Diagnostic Test (Routine) - Authorized Specialty Diagnoses / Procedures Referred By Contac t Referred To Contact Diagnoses Limb ischemia Procedures ELEN, legs, multiple levels Preston Dee MD [facility] [place] [address] [facility] Vascular Lab [address] [place] [phone] Referral ID Status Reason Start Date Expiration Date Visits Requested Visits Authorized [id number] Authorized Specialty Service Requested 06/02/2024 06/02/2025 1 1 Reason for Visit * Reason Comments Circulatory Problem * Auth/Cert (Routine) Specialty Diagnoses / Procedures Referred By Contac t Referred To Contact Diagnoses Limb ischemia Critical limb ischemia of left lower extremity calf pain Procedures ER IPI Jerry Marin MD [facility] [place] [address] [facility] Referral ID Status Reason Start Date Expiration Date Visits Re quested Visits Authorized [id number] 1 1 Encounter Details Date Type Department Care Team (Latest Contact Info) Description 05/28/2024 5:40 PM EDT - 06/02/2024 6:45 PM EDT Hospital Encounter Surgical Unit Level 4 [place] [id number] Arthur Patel [facility] [place] [address] Jerry Marin MD [facility] [place] [address] Limb ischemia; Critical limb ischemia of left lower extremity Discharge Disposition: Home Social History Tobacco Use Types Packs/Day Years Used Date Smoking Tobacco: Every Day Cigarettes 1 25 Started: 12/28/1986; Last attempted to quit: 12/28/2011 Alcohol Use Standard Drinks/Week Comments No 0 (1 standard drink = 0.6 oz pur e alcohol) [facility] Utilities Answer Date Recorded In the past 12 months has [employer], gas, oil, or water [employer] threatened to shut off services in your [...] any time in the past 12 m [facility], were you homeless or living in [...] use, narcolepsy/cataplexy, who initially presented to [facility] ED with c/o 3d acute onset left calf pain. CTA revealed short segment popliteal occlusion with distal reconstitution. On arrival to [facility] he is hemodynamically normal on RA. He [...] to date on transfer documentation from [facility]. Hospital Course: Geovanna was immediately started on [...] 05/30/2024 11:20 AM) Result Value WORKSTATION ID [id number] NM Pharmacologic Stress and Rest Myocardial Perfusion (Exam End: 05/30/2024 10:40 AM) Result Value WORKSTATION ID [id number] Impression 1. There is a small sized, [...] who have questions please contact the health healthcare recruiter that requested your imaging first. Lower Extremity w Contrast Left (Exam End: 05/30/2024 7:27 PM) Result Value WORKSTATION ID [id number] Impression 1. Occlusion of the popliteal artery [...] who have questions please contact the health healthcare recruiter that requested your imaging first. Labs: Recent Results (from the past 72 [...] Left Result Value Ref Range WORKSTATION ID [id number] Rapid Drug Screen, Urine (IVAN Request) Result [...] Negative mcL Appearance UA Clear Clear Spec [place] UA >=1.030 (A) 1.005 - 1.030 Color [...] Text Report Department: Vascular Surgery Lab Patient: [id number] (GEOVANNA DIXON) CPT: 69007 Referring Physician: JERRY MARIN Phone: Indications: Left [...] thrombosis. Comparison: No previous study in our va scular lab database for comparison. Electronically Signed [...] 65 - 199 mg/dL MRSA PCR Screen ([facility]/CGP/APD/[place]) Specimen: Nasopharyngeal Swab Specimen Type->Nasopharyngeal Swab Result Value Ref Range MRSA Result Negative Negative MRSA Interp Methicillin-resistant Staphylococcus aureus (MRSA) is NOT DETECTED The MRSA target DNA sequences (mec and SCC) were not detected within the acceptable ranges using the Xpert MRSA NxG on the GeneXpert Dx System (Purplu). This suggests the absence of MRSA in the patient specimen submitted for testing. This test is cleared by the U.S. Food and Drug Administration for clinical use and its performance characteristics have been verified by the [facility] at [facility]. This result does not rule out the [...] Process Instructions: There is no in-house vascular incinerator plant laborer available on weeknights (5pm-8am), weekends, or holidays. IF THIS IS A REQUEST FOR AN EMERGENT STUDY DURING THOSE HOURS, please have the senior provider responsible for the patient page the Vascular Surgery Fellow/Senior Resident control room helper to discuss options. Scheduling Instructions: Questions: Indication for study/signs & symptoms: L poplital artery occlusion and PAD Question to be answered: Adequacy of LLE perfusion Preferred location?: [facility] Clinics Arterial Duplex Leg, Unil [VAS32 Custom] 07/03/2024 (Approximate) 01/02/2025 Process Instructions: There is no in-house vascular incinerator plant laborer available on weeknights (5pm-8am), weekends, or holidays. IF THIS IS A REQUEST FOR AN EMERGENT STUDY DURING THOSE HOURS, please have the senior provider responsible for the patient page the Vascular Surgery Fellow/Senior Resident control room helper to discuss options. Scheduling Instructions: Questions: Indication for study/signs & symptoms: L popliteal occlusion in setting of PAD Question to be answered: adequate arterial flow in lower leg, particularly near site of occlusion Laterality: Left Is there a LEFT LOWER EXTREMITY graft?: No Lower limb left segments: Popliteal Common Femoral Profunda Superficial Femoral Tibial Is there a stent?: No Preferred location?: [facility] Clinics Anticoagulation & Antiplatelet: Anticoagulation: Agent: Xarelto 2.5mg BID Indication: Left popliteal artery occlusion Intended Duration: Indefinitely, will discuss at follow-up appointment Antiplatelet: Agent: Aspirin 81mg Indication: CAD Intended Duration: Indefinitely For questions regarding these medications, please contact Vascular Surgery at [phone]. For issues on weeknights after 5pm and weekends please call [phone] and ask for the Vascular Fellow kuldeep. [...] For any problems or questions please call [phone] For issues on weeknights after 5pm and weekends please call [phone] and ask for the Vascular Fellow control room helper. Vascular Surgery Contact Information: For any problems or questions please call [phone] For issues on weeknights after 5pm and weekends please call [phone] and ask for the Vascular Fellow control room helper. documented in this encounter Discharge Instructions * [...] to have your insulin doses adjusted. Recovery Resources/[address] [id number] [email or web address] Hours Wed through Wednesday 8:00am to 2:00 [...] For any problems or questions please call [phone] For issues on weeknights after 5pm and weekends please call [phone] and ask for the Vascular Fellow control room helper. * Attachments The following attachments cannot be sent through Care Everywhere. * Direct Oral Anticoagulants: Non-Vitamin K Antagonist (German) documented in this encounter Medications at Time [...] for 5 days. 10 tablet 06/02/2024 06/07/2024 insulin needles, disposable, 32 gauge x /32 NeedleIndications:d iabetes mellitus Inject 1 each subcutaneously 4 times daily. Indications: diabetes 400 each 06/02/2024 07/21/2024 insulin glargine (Lantus) 100 unit/mL (3 mL) pen Inject 35 Units subcutaneously nightly. 3 mL 11 06/02/2024 07/21/2024 methylphenidate (Ritalin) 20 mg tablet Take 20 mg by mouth 3 times daily. 05/02/2024 07/21/2024 Blood Sugar Diagnostic (FREESTYLE LITE STRIPS) test stripIndications:pr ediabetes s/p CABG by Other route 2 times daily. 1 box = 100 test strips Indications: prediabetes s/p CABG 100 each 1 01/08/2012 07/21/2024 documented as of this encounter Progress Notes * Preston Dee MD - 06/01/2024 11:43 AM EDT Vascular Surgery Progress Note Geovanna Dixon Jr. is a 49 y.o. male with PMH of CAD s/p 2V CABG (2012), DM, HTN, HLD, obesity, substance abuse, narcolepsy/cataplexy, who initially presented to [facility] ED with c/o 3d acute onset left calf pain. CTA revealed short segment popliteal occlusion with distal reconstitution. On arrival to [facility] he is hemodynamically normal on RA. He [...] to date on transfer documentation from [facility]. Active Hospital Problems Diagnosis Critical limb ischemia [...] 4.2 CL 102 99 99 98 CO2 BUN 7* 7* 7* 9* CREATININE 0.54* 0.55* 0.58* 0.56* PHOS 3.2 3.1 3.8 2.9 CALCIUM 9.2 9.0 9.1 8.7 Microbiology: Microbiology Results (Last 30 days) No results found for the last 720 hours. Imaging: ABIs Department: Vascular Surgery Lab Patient: [id number] (GEOVANNA DIXON) CPT: 54848 Referring Physician: JERRY MARIN Phone: Indications: PAD [...] Cards recs Preston Dee MD 06/01/2024 Pager: [phone] * Anabel Castelan MD - 06/01/2024 11:42 [...] 0817 06/01/24 0813 06/01/24 0643 05/31/24 2326 05/31/242027 05/31/24 1631 05/31/24 1243 05/31/24 0819 05/31/24 [...] nutritional counseling for which one of our wire machine cutter met with him on 05/31. Glargine has [...] with Dr. Reno. Anabel Castelan MD. PGY4 [facility] Endocrinology 20 minutes of this 35 minute [...] abuse, narcolepsy/cataplexy, who initially presented to [facility] ED with c/o 3d acute onset left [...] an evening meal which is usually takeout (grinder operator external tool or pizza). Drinks up to 18 cans of Moun tain Dew/day or 1.5 gallons of milk daily. Bindu Ritter RD * Preston Dee MD - 05/31/2024 12:13 PM EDT Vascular Surgery Progress Note Geovanna Dixon Jr. is a 49 y.o. male with PMH of CAD s/p 2V CABG (2012), DM, HTN, HLD, obesity, substance abuse, narcolepsy/cataplexy, who initially presented to [facility] ED with c/o 3d acute onset left calf pain. CTA revealed short segment popliteal occlusion with distal reconstitution. On arrival to [facility] he is hemodynamically normal on RA. He [...] to date on transfer documentation from [facility]. Active Hospital Problems Diagnosis Critical limb ischemia [...] improved on heparin, but L medial calf kettle tender. No changes in level of pain [...] Imaging: ABIs Department: Vascular Surgery Lab Patient: [id number] (GEOVANNA DIXON) CPT: 44560 Referring Physician: JERRY MARIN Phone: Indications: PAD [...] Cards recs Preston Dee MD 05/31/2024 Pager: [phone] * Flip, Anabel Wilson MD - 05/31/2024 8:49 AM EDT Follow [...] islet cell antibodies Will place consult for package delivery driver to further discuss nutritional modifications Patient case discussed with Dr. Reno. Anabel Castelan MD PGY4 [facility] Endocrinology 20 minutes of this 35 minute [...] abuse, narcolepsy/cataplexy, who initially presented to [facility] ED with c/o 3d acute onset left calf pain. CTA revealed short segment popliteal occlusion with distal reconstitution. On arrival to [facility] he is hemodynamically normal on RA. He [...] to date on transfer documentation from [facility]. Active Hospital Problems Diagnosis Critical limb ischemia [...] improved on heparin, but L medial calf kettle tender - HDS, afebrile Objective: Temp: [36.3 [...] Imaging: ABIs Department: Vascular Surgery Lab Patient: [id number] (GEOVANNA DIXON) CPT: 09435 Referring Physician: JERRY MARIN Phone: Indications: PAD [...] Cards recs Preston Dee MD 05/30/2024 Pager: [phone] * Vibha Benson, CREATIVE LEAD - 05/29/2024 11:48 AM EDT Vascular Surgery Progress Note Geovanna Dixon Jr. is a 49 y.o. male with PMH of CAD s/p 2V CABG (2012), DM, HTN, HLD, obesity, substance abuse, narcolepsy/cataplexy, who initially presented to [facility] ED with c/o 3d acute onset left calf pain. CTA revealed short segment popliteal occlusion with distal reconstitution. On arrival to [facility] he is hemodynamically normal on RA. He [...] to date on transfer documentation from [facility]. Active Hospital Problems Diagnosis Critical limb ischemia [...] Microbiology: ABIs Department: Vascular Surgery Lab Patient: [id number] (GEOVANNA DIXON) CPT: 75488 Referring Physician: JERRY MARIN Phone: Indications: PAD [...] ASA Statin Vibha Benson APRN 05/29/2024 Pager: [phone] documented in this encounter H&P Notes * Lili Tapia MD - 05/28/2024 6:33 PM EDT [facility] Department of Vascular Surgery History & Physical Patient Name: Geovanna Dixon Jr. MR#: [id number] : 1975 Admission Date: 05/28/2024 Indication for Admission: LLE ALI History of Present Illness: Geovanna Dixon Jr. is a 49 y.o. male with PMH of CAD s/p 2V CABG (2012), DM, HTN, HLD, obesity, substance abuse, narcolepsy/cataplexy, who initially presented to [facility] ED with c/o 3d acute onset left calf pain. CTA revealed short segment popliteal occlusion with distal reconstitution. On arrival to [facility] he is hemodynamically normal on RA. He [...] to date on transfer documentation from [facility]. Past Medical History: Past Medical History: Diagnosis [...] VEIN GRAFT performed by INNA TOVAR at [facility] OR PRO ENDOSCOPY W/VIDEO-ASST VEIN HARVEST, CABG 01/04/2012 ENDOSCOPIC HARVEST VEIN(S) FOR CABG performed by INNA TOVAR at [facility] OR Home Medications: Current Outpatient [...] abuse, narcolepsy/cataplexy, who initially presented to [facility] ED with c/o 3d acute onset left [...] MD 05/28/2024 Vascular Surgery Service Team pager #[phone] documented in this encounter ED Notes * [...] male pmh CAD with two-vessel CABG in 2011, hypertension, hyperlipidemia, narcolepsy, diabetes who presents to the Emergency Department as a transfer from [facility] for left foot ischemia. CT angiogram at [...] for: ED Course as of 05/28/24 190 Elle May 28, 2024 1819 Paged vascular surgery 1820 Vascular surgery recommending heparin drip [phone] paged [phone] Surgery to see 1836 WBC: 7.0 1836 RBC: 4.67 1836 Lactate WB: 1.6 1900 Glucose Lvl(!): 286 1900 Creatinine(!): 0.53 No orders to display Procedures Assessment and Plan: 49 y.o. male transferred from [facility] for popliteal artery occlusion resulting in decreased [...] with the patient. Juan Santana MD Resident 05/29/24 0054 Associated attestation - Arthur Patel DO - [...] my separate note. 49-year-old male transfer from [facility] for left foot ischemia with CT angiogram showing occlusive thrombus in left popliteal with some collaterals. Patient was started on heparin, admitted to vascular surgery service. Did this case involve critical care? No * Hortensia Paul RN - 05/28/2024 5:44 PM EDT Sending [...] Yes/No STROKE ALERT: Last Known Well Time: [place] Stroke Scale: + / - FAST-ED Score: TRAUMA ALERT: T9 Alert Consult Lowest Documented BP Transporting Service: Time of Departure: ETA: * María Ugalde MD - 05/28/2024 4:41 PM EDT . EM attending brief transfer acceptance note: Geovanna Dixon is a 49 y.o. who I accepted in transfer from [facility] for rule out left foot ischemia. Patient [...] to transfer were discussed María Ugalde MD 05/28/248 documented in this encounter Miscellaneous Notes * [...] abuse, narcolepsy/cataplexy, who initially presented to [facility] ED with c/o 3d acute onset left [...] therapeutic upon check with AM labs, continues [id number]/30ml/hr. Pt continues on Telemetry, noted NSR every [...] pain controlled with scheduled and PRN meds, adjunct faculty for medical terminology to be found in JAN. Q4 neurovascular assessments unchanged, redness to left [...] Pain controlled with scheduled and PRN meds, adjunct faculty for medical terminology to be found in JAN. Patient went [...] abuse, narcolepsy/cataplexy, who initially presented to [facility] ED with c/o 3d acute onset left [...] from the original note were not included. [facility] [place] [address] [place] [phone] CARDIOLOGY CONSULT NOTE Date of Consultation: 05/29/2024 [...] abuse, narcolepsy/cataplexy, who initially presented to [facility] ED with c/o 3d acute onset left [...] NSTEMI in 2012, at the time showed HEALTH TEACHER of proximal LAD, HEALTH TEACHER proximal right, 90% LCX. MARTINEZ-LAD patent and [...] Surgical Unit Level 4 Wing D at [facility] Office Visit from 03/08/2012 in Cardiothoracic Surgery [...] abuse, narcolepsy/cataplexy, who initially presented to [facility] ED with c/o 3d acute onset left calf pain. CTA revealed short segment popliteal occlusion with distal reconstitution. Cardiology consulted regarding preoperative risk stratification. Vascular surgery plans for surgical revascularization. He has a notable cardiac history listed above, transthoracic echocardiogram notable for mildly reduced LVEF with inferior wall hypokinesis. Thisis explained by his known history of an occluded SVG-RPDA graft with a HEALTH TEACHER of his right coronary artery. He has [...] abuse, narcolepsy/cataplexy who initially presented to [facility] ED with complaints of 3 days of acute left calf pain. CTA revealed short segment popliteal occlusion with distal reconstitution. He was transferred to [facility] on 05/28/2024 for further management. We are being consulted to assist with diabetes management for poorly controlled DM and to provide a review of pageant director diabetes care. Diabetes History: Geovanna Dixon Jr. [...] sec Lactate, whole blood, send to lab ([facility] Result Value Ref Range Lactate WB 1.6 0.5 - 2.2 mmol/L Type and screen ([facility]) Result Value Ref Range ABORH Type A [...] Value Ref Range T&S only valid at [facility] Hosp POCT Glucose Result Value Ref Range [...] distal reconstitution on CTA. While at [facility] patient found to have blood glucose approx 490-500. He was transferred to [facility] on 05/28/2024 for further management. We are being consulted to assist with diabetes management for poorly controlled DM and to provide a review of pageant director diabetes care. Diabetes is not currently well [...] diabetes education as well as nutritional counseling manager of procurement diabetes care: Medications - Outpatient treatment regimen recommendations pending based on the hospital course. Monitoring - continue BG tid ac & hs Diet - low fat/low carb diet Exercise - weight-bearing exercise 30 min/day, as tolerated Provider - patient requires establishment with new PCP or pharmacy intern for continued medication management Thank you for allowing us to provide care for your patient. Anabel Castelan MD [facility] Endocrinology Associated attestation - Karen Reno MD [...] MD Professor * Initial Assessments - Tanmay Andrade, DENISSE - 05/29/2024 10:56 AM EDT Office of [...] surrogate would be surrogate decision maker per [place] surrogate decision making law. (Only good for 180 days) Any patient receiving care in [place] must abide by [place] law. The hierarchy for surrogate decision making [...] (i) The agent with financial power of prosecuting attorney or a conservator appointed in accordance [...] homeless or living in a correction (including now)?: No In the past 12 [...] Current DME: none Home Address confirmed as: [address] [place] [address] [place] [address] Social & Family Supports: All names listed [...] Pertinent/Service Specific Information: Health/Prescription Coverage: [facility] Insurance: [facility] Payor: [facility] / Plan: [employer] MANAGED MEDICARE PPO / Product Type: *No Product type* / Secondary Insurance: N/A ONLY if patient has Medicare A&B - Does this patient have secondary insurance?: No ; Why not?: Costs Prescription Coverage: Yes Preferred Pharmacy: [id number] - [facility], [place] - [address] [facility] [address] [facility] [address] Status: Patient is a : No Primary Care Provider listed: Guanako Gusman MD (Inactive) [phone] Patient/Caregiver Goals of Treatment: How long will [...] and coordination of care as indicated. DENISSE Atsorga Care Management #[id number] * Plan of Care [...] Identify and Manage Fall Risk Flowsheets (Taken 05/28/20242299 by Maribel Lazo RN) Safety Promotion/Fall Prevention: [...] as Appropriate) * Consult Note - Allen Oroan RPH - 05/29/2024 4:00 AM EDT [facility] Home Medication List Update for Medication Reconciliation [...] reconciled by the provider. Please contact the [facility] Reconciliation Pharmacist at for any questions. [...] AM EDT Hospital Encounter [place] [address] Lisette Maldonado MD [facility] [place] [address] 08/01/2024 7:30 AM EDT - 08/01/2024 1:43 PM EDT Surgery [place] [address] Lisette Maldonado MD [facility] [place] [place] [address] @BYPASS GRAFT, FEM-ANT TIBIAL, -POST TIBIAL, -PERONEAL, [...] (ABNORMAL) POCT Glucose (06/02/2024 4:12 PM EDT) Glucose, POC 203(H) 65 - 199 mg/dL [facility] Comment: Supplemental ranges: <140 mg/dL before meals <180 mg/dL all other times of the day Blood 06/02/2024 4:12 PM EDT 06/02/2024 4:12 PM EDT Jerry Marin MD POINT OF CARE TEST O RDERABLES Performing Organization Address City/State/[facility] Co de Phone Number [facility] [place] [place] [address] * (ABNORMAL) POCT Glucose (06/02/2024 1:47 PM EDT) Glucose, POC 306(H) 65 - 199 mg/dL [facility] Comment: Supplemental ranges: <140 mg/dL before meals <180 mg/dL all other times of the day Blood 06/02/2024 1:47 PM EDT 06/02/2024 1:47 PM EDT Jerry Marin MD POINT OF CARE TEST O RDERAHERNANDEZ Performing Organization Address [facility] Co de Phone Number [facility] [place] [address] * (ABNORMAL) POCT Glucose (06/02/2024 11:28 AM EDT) Glucose, POC 270(H) 65 - 199 mg/dL [facility] Comment: Supplemental ranges: <140 mg/dL before meals <180 mg/dL all other times of the day Blood 06/02/2024 11:2 8 AM EDT 06/02/2024 11:28 AM EDT Jerry Marin MD POINT OF CARE TEST O GILDA Performing Organization Address [facility] Co de Phone Number [facility] [place] [address] * (ABNORMAL) POCT Glucose (06/02/2024 8:59 AM EDT) Glucose, POC 299(H) 65 - 199 mg/dL [facility] Comment: Supplemental ranges: <140 mg/dL before meals <180 mg/dL all other times of the day Blood 06/02/2024 8:59 AM EDT 06/02/2024 8:59 AM EDT Jerry Marin MD POINT OF CARE TEST O GILDA Performing Organization Address [facility] [facility] Co de Phone Number [facility] [place] [place] [address] * (ABNORMAL) Differential, Automated (06/02/2024 1:52 AM EDT) Neutrophil % 75.2 % [facility] Neutrophil Absolute 9.62(H) 1.70 - 6.10 x10(3)/mc L [facility] Lymph % 12.7 % [facility] Lymphocytes Abs 1.6 0.9 - 3.2 x10(3)/mc L [facility] Monocyte % 7.8 % [facility] Monocyte Abs 1.0(H) 0.3 - 0.9 x10(3)/[facility] Eos % 1.1 % [facility] Eosinophils Abs 0.1 0.0 - 0.4 x10(3)/[facility] Basophil % 0.9 % [facility] Baso Absolute 0.1 0.0 - 0.1 x10(3)/[facility] Immature Gran % 2.30 % [facility] Comment: Immature granulocytes(IG's)percentage and absolute count will include metamyelocytes, myelocytes, and promyelocytes. Blood smears from CBCs yielding IG's will be scanned manually for concordance. If this scan disagrees with the automated IG or if promyelocytes are noted, a manual differential will be performed. Immature Gran Absolute 0.29(H) 0.00 - 0.04 x10(3)/[facility] Blood 06/02/2024 1:52 AM EDT 06/02/2024 2:06 AM EDT Narrative Resulting Agency Comment Spec In Lab Lili Tapia MD HEMATOLOGY ORDERA BLES [facility] [place] [address] * (ABNORMAL) Hemogram (06/02/2024 1:52 AM EDT) White Blood Cell 12.8(H) 4.0 - 9.5 x10(3)/[facility] Red Blood Cell 4.56(L) 4.58 - 5.54 x10(6)/[facility] Hemoglobin 13.7 13.7 - 16.5 g/dL [facility] Hematocrit 39.0(L) 40.5 - 48.5 % [facility] Mean Cell Volume 85.5 82.9 - 93.[address] [facility] Mean Cell Hemoglobin 30.0 27.5 - 32.[address] [facility] Mean Cell Hemoglobin Concentration 35.1 32.0 - 35.7 g/dL [facility] Platelet 283 145 - 357 x10(3)/mc L [facility] RDW Standard Deviation 35.7(L) 36.0 - 45.[address] [facility] RDW coefficient of variation 11.6 11.4 - 13.8 % [facility] Mean Platelet Volume 10.2 7.6 - 12.[address] [facility] NRBC% auto 0.0 % [facility] NRBC Absolute 0.000 0.000 - 0.000 x10(3)/mc L [facility] Blood 06/02/2024 1:52 AM EDT 06/02/2024 2:06 AM EDT Narrative Resulting Agency Comment Spec In Lab Lili Tapia MD HEMATOLOGY ORDERA BLES [facility] [place] [place] [address] * Heparin (unfractionated) Level (06/02/2024 1:52 AM EDT) UF Heparin 0.35 IU/mL [facility] Comment: Heparin (anti-Xa) levels [...] DO HEMATOLOGY ORDERABLE S Performing Organization Address [facility]/ZIP Co de Phone Number [facility] [place] [address] * Phosphorus (06/02/2024 1:52 AM EDT) Phosphorus 3.3 2.5 - 4.5 mg/dL [facility] Blood 06/02/2024 1:52 AM EDT 06/02/2024 2:06 AM EDT Narrative Resulting Agency Comment Spec In Lab Jerry Marin MD CHEMISTRY ORDERABLES Performing Organization Address [facility] de Phone Number [facility] [place] [address] * Magnesium (06/02/2024 1:52 AM EDT) Magnesium 0.81 0.69 - 1.07 mmol/L [facility] Blood 06/02/2024 1:52 AM EDT 06/02/2024 2:06 AM EDT Narrative Resulting Agency Comment Spec In Lab Jerry Marin MD CHEMISTRY ORDERABLES Performing Organization Address [facility] Co de Phone Number [facility] [place] [address] * (ABNORMAL) Basic Metabolic Panel (non-fasting) (06/02/2024 1:52 AM EDT) Glucose 165 65 - 199 mg/dL [facility] Comment:Diabetes: >=200 mg/d L plus symptoms Blood Urea Nitrogen 7(L) 10 - 20 mg/dL [facility] Creatinine 0.52(L) 0.80 - 1.50 mg/dL [facility] Sodium 137 135 - 145 mmol/L [facility] Potassium 4.0 3.5 - 5.0 mmol/L [facility] Comment: Please note: ??Patients with WBC >100,000 may have falsely elevated Potassium levels. ??For accurate Potassium quantification in these patients send serum separator tube (gold top) for subsequent determinations. ??Contact the Clinical Chemistry Laboratory if there are any questions. Chloride 102 98 - 107 mmol/L [facility] Carbon Dioxide 23 22 - 31 mmol/L [facility] Anion Gap 12 5 - 15 mmol/L [facility] Calcium 9.5 8.5 - 10.5 mg/dL [facility] Est Glomerular Filtration Rate 123 >=60 mL/min/1. 73 m?? [facility] Comment: This patient's estimated GFR [...] In Lab Jerry Marin MD CHEMISTRY ORDERABLES [facility] [place] [place] [address] * (ABNORMAL) POCT Glucose (06/01/2024 7:45 PM EDT) Glucose, POC 225(H) 65 - 199 mg/dL [facility] Comment: Supplemental ranges: <140 mg/dL before meals <180 mg/dL all other times of the day Blood 06/01/2024 7:45 PM EDT 06/01/2024 7:45 PM EDT Jerry Marin MD POINT OF CARE TEST O RDERABLES Performing Organization Address [facility] Co de Phone Number [facility] [place] [address] * POCT Glucose (06/01/2024 4:45 PM EDT) Glucose, POC 178 65 - 199 mg/dL [facility] Comment: Supplemental ranges: <140 mg/dL before meals <180 mg/dL all other times of the day Blood 06/01/2024 4:45 PM EDT 06/01/2024 4:45 PM EDT Jerry Marin MD POINT OF CARE TEST O RDERABLES Performing Organization Address [facility] de Phone Number [facility] [place] [address] * POCT Glucose (06/01/2024 2:32 PM EDT) Glucose, POC 195 65 - 199 mg/dL [facility] Comment: Supplemental ranges: <140 mg/dL before meals <180 mg/dL all other times of the day Blood 06/01/2024 2:32 PM EDT 06/01/2024 2:32 PM EDT Jerry Marin MD POINT OF CARE TEST O RDERABLES Performing Organization Address [facility] Co de Phone Number [facility] [place] [address] * MRSA PCR Screen ([facility]/CGP/APD/NLH) (06/01/2024 1:42 PM EDT) MRSA PCR Negative Negative [facility] MRSA (Interp) Methicillin-resist ant Staphylococcus aureus (MRSA) is NOT DETECTED The MRSA target DNA sequences (mec and SCC) were not detected within the acceptable ranges using the Xpert MRSA NxG on the GeneXpert Dx System (Cepheid). This suggests the absence of MRSA in the patient specimen submitted for testing. This test is cleared by the U.S. Food and Drug Administration for clinical use and its performance characteristics have been verified by the [facility] at [facility]. This result does not rule out the presence of any other organisms. Rare false negative results may occur if MRSA is present at low concentrations with much higher concentrations of other organisms including MRSE or S. aureus with an empty SCC cassette. [facility] Comment: [VERIFIED DATE]06.02.24 Verified By:Gloria Jonas (Electronic Signature) Nasopharyngeal Swab 06/01/20 1:42 PM EDT 06/01/2024 3:11 PM EDT Comment:Specimen Type->Nasop haryngeal Swab Narrative Resulting Agency Comment Spec In Lab Jerry Marin MD MOLECULAR ORDERABLES Performing Organization Address [facility] Co de Phone Number [facility] [place] [address] * (ABNORMAL) POCT Glucose (06/01/2024 11:49 AM EDT) Glucose, POC 264(H) 65 - 199 mg/dL [facility] Comment: Supplemental ranges: <140 mg/dL before meals <180 mg/dL all other times of the day Blood 06/01/2024 11:4 9 AM EDT 06/01/2024 11:49 AM EDT Jerry Marin MD POINT OF CARE TEST O RDERABLES Performing Organization Address [facility] Co de Phone Number [facility] [place] [address] * (ABNORMAL) POCT Glucose (06/01/2024 8:17 AM EDT) Glucose, POC 288(H) 65 - 199 mg/dL [facility] Comment: Supplemental ranges: <140 mg/dL before meals <180 mg/dL all other times of the day Blood 06/01/2024 8:17 AM EDT 06/01/2024 8:17 AM EDT Jerry Marin MD POINT OF CARE TEST O GILDA Performing Organization Address [facility] Co de Phone Number [facility] [place] [address] * (ABNORMAL) POCT Glucose (06/01/2024 8:13 AM EDT) Glucose, POC 358(H) 65 - 199 mg/dL [facility] Comment: Supplemental ranges: <140 mg/dL before meals <180 mg/dL all other times of the day Blood 06/01/2024 8:13 AM EDT 06/01/2024 8:13 AM EDT Jerry Marin MD POINT OF CARE TEST O GILDA Performing Organization Address [facility] Co de Phone Number [facility] [place] [place] [address] * (ABNORMAL) POCT Glucose (06/01/2024 6:43 AM EDT) Glucose, POC 296(H) 65 - 199 mg/dL [facility] Comment: Supplemental ranges: <140 mg/dL before meals <180 mg/dL all other times of the day Blood 06/01/2024 6:43 AM EDT 06/01/2024 6:43 AM EDT Jerry Marin MD POINT OF CARE TEST O GILDA Performing Organization Address City/[facility] Co de Phone Number [facility] [place] [place] [address] * (ABNORMAL) Differential, Automated (06/01/2024 6:12 AM EDT) Neutrophil % 73.0 % [facility] Neutrophil Absolute 8.65(H) 1.70 - 6.10 x10(3)/mc L [facility] Lymph % 15.2 % [facility] Lymphocytes Abs 1.8 0.9 - 3.2 x10(3)/[facility] Monocyte % 7.7 % [facility] Monocyte Abs 0.9 0.3 - 0.9 x10(3)/[facility] Eos % 1.4 % [facility] Eosinophils Abs 0.2 0.0 - 0.4 x10(3)/[facility] Basophil % 1.2 % [facility] Baso Absolute 0.1 0.0 - 0.1 x10(3)/[facility] Immature Gran % 1.50 % [facility] Comment: Immature granulocytes(IG's)percentage and absolute count will include metamyelocytes, myelocytes, and promyelocytes. Blood smears from CBCs yielding IG's will be scanned manually for concordance. If this scan disagrees with the automated IG or if promyelocytes are noted, a manual differential will be performed. Immature Gran Absolute 0.18(H) 0.00 - 0.04 x10(3)/[facility] Blood 06/01/2024 6:12 AM EDT 06/01/2024 6:43 AM EDT Narrative Resulting Agency Comment Spec In Lab Lili Tapia MD HEMATOLOGY ORDERA BLES [facility] [place] [place] [address] * (ABNORMAL) Hemogram (06/01/2024 6:12 AM EDT) White Blood Cell 11.8(H) 4.0 - 9.5 x10(3)/[facility] Red Blood Cell 4.66 4.58 - 5.54 x10(6)/[facility] Hemoglobin 14.1 13.7 - 16.5 g/dL [facility] Hematocrit 39.6(L) 40.5 - 48.5 % [facility] Mean Cell Volume 85.0 82.9 - 93.[address] [facility] Mean Cell Hemoglobin 30.3 27.5 - 32.[address] [facility] Mean Cell Hemoglobin Concentration 35.6 32.0 - 35.7 g/dL [facility] Platelet 264 145 - 357 x10(3)/mc L [facility] RDW Standard Deviation 35.0(L) 36.0 - 45.[address] [facility] RDW coefficient of variation 11.4 11.4 - 13.8 % [facility] Mean Platelet Volume 10.8 7.6 - 12.[address] [facility] NRBC% auto 0.0 % [facility] NRBC Absolute 0.000 0.000 - 0.000 x10(3)/mc L [facility] Blood 06/01/2024 6:12 AM EDT 06/01/2024 6:43 AM EDT Narrative Resulting Agency Comment Spec In Lab Lili Tapia MD HEMATOLOGY ORDERA BLES Performing Organization Address City/[facility]/ZIP Co de Phone Number [facility] [place] [address] * Phosphorus (06/01/2024 6:12 AM EDT) Phosphorus 3.2 2.5 - 4.5 mg/dL [facility] Blood 06/01/2024 6:12 AM EDT 06/01/2024 6:43 AM EDT Narrative Resulting Agency Comment Spec In Lab Jerry Marin MD CHEMISTRY ORDERABLES Performing Organization Address City/[facility]/ZIP Co de Phone Number [facility] [place] [address] * Magnesium (06/01/2024 6:12 AM EDT) Magnesium 0.87 0.69 - 1.07 mmol/L [facility] Blood 06/01/2024 6:12 AM EDT 06/01/2024 6:43 AM EDT Narrative Resulting Agency Comment Spec In Lab Jerry Marin MD CHEMISTRY ORDERABLES [facility] [place] [address] * (ABNORMAL) Basic Metabolic Panel (non-fasting) (06/01/2024 6:12 AM EDT) Glucose 300(H) 65 - 199 mg/dL [facility] Comment:Diabetes: >=200 mg/d L plus symptoms Blood Urea Nitrogen 7(L) 10 - 20 mg/dL [facility] Creatinine 0.54(L) 0.80 - 1.50 mg/dL [facility] Sodium 135 135 - 145 mmol/L [facility] Potassium 4.1 3.5 - 5.0 mmol/L [facility] Comment: Please note: ??Patients with WBC >100,000 may have falsely elevated Potassium levels. ??For accurate Potassium quantification in these patients send serum separator tube (gold top) for subsequent determinations. ??Contact the Clinical Chemistry Laboratory if there are any questions. Chloride 102 98 - 107 mmol/L [facility] Carbon Dioxide 22 22 - 31 mmol/L [facility] Anion Gap 11 5 - 15 mmol/L [facility] Calcium 9.2 8.5 - 10.5 mg/dL [facility] Est Glomerular Filtration Rate 121 >=60 mL/min/1. 73 m?? [facility] Comment: This patient's estimated GFR [...] Marin MD CHEMISTRY ORDERABLES Performing Organization Address City/[facility]/ZIP Co de Phone Number [facility] [place] [place] [address] * POCT Glucose (05/31/2024 11:26 PM EDT) Glucose, POC 168 65 - 199 mg/dL [facility] Comment: Supplemental ranges: <140 mg/dL before meals <180 mg/dL all other times of the day Blood 05/31/2024 11:2 6 PM EDT 05/31/2024 11:26 PM EDT Jerry Marin MD POINT OF CARE TEST O RDERABLES Performing Organization Address [facility] Co de Phone Number [facility] [place] [place] [address] * (ABNORMAL) POCT Glucose (05/31/2024 8:28 PM EDT) Glucose, POC 248(H) 65 - 199 mg/dL [facility] Comment: Supplemental ranges: <140 mg/dL before meals <180 mg/dL all other times of the day Blood 05/31/2024 8:28 PM EDT 05/31/2024 8:28 PM EDT Jerry Marin MD POINT OF CARE TEST O RDERABLES Performing Organization Address City/[facility] Co de Phone Number [facility] [place] [place] [address] * POCT Glucose (05/31/2024 4:31 PM EDT) Glucose, POC 187 65 - 199 mg/dL [facility] Comment: Supplemental ranges: <140 mg/dL before meals <180 mg/dL all other times of the day Blood 05/31/2024 4:31 PM EDT 05/31/2024 4:31 PM EDT Jerry Marin MD POINT OF CARE TEST O GILDA Performing Organization Address City/[facility]/ZIP Co de Phone Number [facility] [place] [place] [address] * (ABNORMAL) POCT Glucose (05/31/2024 12:43 PM EDT) Glucose, POC 200(H) 65 - 199 mg/dL [facility] Comment: Supplemental ranges: <140 mg/dL before meals <180 mg/dL all other times of the day Blood 05/31/2024 12:4 3 PM EDT 05/31/2024 12:43 PM EDT Jerry Marin MD POINT OF CARE TEST O GILDA Performing Organization Address [facility] Co de Phone Number [facility] [place] [place] [address] * (ABNORMAL) POCT Glucose (05/31/2024 8:19 AM EDT) Glucose, POC 232(H) 65 - 199 mg/dL [facility] Comment: Supplemental ranges: <140 mg/dL before meals <180 mg/dL all other times of the day Blood 05/31/2024 8:19 AM EDT 05/31/2024 8:19 AM EDT Jerry Marin MD POINT OF CARE TEST O GILDA Performing Organization Address City/[facility]/ZIP Co de Phone Number [facility] [place] [place] [address] * Duplex for DVT, Leg, Unilat (05/31/2024 7:35 AM EDT) VB Text Report Department: Vascular Surgery Lab Patient: [id number] (GEOVANNA DIXON) CPT: 24305 Referring Physician: JERRY MARIN ?? Phone: Indications: [...] AM EDT Jerry Marin MD VASCULAR ORDERABLES Performing Organization Address City/[facility]/ZIP Co de Phone Number [facility] * (ABNORMAL) POCT Glucose (05/31/2024 6:53 AM EDT) Glucose, POC 261(H) 65 - 199 mg/dL [facility] Comment: Supplemental ranges: <140 mg/dL before meals <180 mg/dL all other times of the day Blood 05/31/2024 6:53 AM EDT 05/31/2024 6:53 AM EDT Jerry Marin MD POINT OF CARE TEST O RDERABLES Performing Organization Address City/[facility]/ZIP Co de Phone Number [facility] [place] [address] * (ABNORMAL) Differential, Automated (05/31/2024 5:26 AM EDT) Neutrophil % 75.1 % [facility] Neutrophil Absolute 9.03(H) 1.70 - 6.10 x10(3)/ L [facility] Lymph % 14.4 % [facility] Lymphocytes Abs 1.7 0.9 - 3.2 x10(3)/[facility] Monocyte % 6.2 % [facility] Monocyte Abs 0.8 0.3 - 0.9 x10(3)/ L [facility] Eos % 2.1 % [facility] Eosinophils Abs 0.2 0.0 - 0.4 x10(3)/[facility] Basophil % 1.0 % [facility] Baso Absolute 0.1 0.0 - 0.1 x10(3)/[facility] Immature Gran % 1.20 % [facility] Comment: Immature granulocytes(IG's)percentage and absolute count will include metamyelocytes, myelocytes, and promyelocytes. Blood smears from CBCs yielding IG's will be scanned manually for concordance. If this scan disagrees with the automated IG or if promyelocytes are noted, a manual differential will be performed. Immature Gran Absolute 0.14(H) 0.00 - 0.04 x10(3)/[facility] Blood 05/31/2024 5:26 AM EDT 05/31/2024 5:58 AM EDT Narrative Resulting Agency Comment Spec In Lab Lili Tapia MD HEMATOLOGY ORDERA BLES [facility] [place] [place] [address] * (ABNORMAL) Hemogram (05/31/2024 5:26 AM EDT) Pathologist [facility] White Blood Cell 12.0(H) 4.0 - 9.5 x10(3)/ L [facility] Red Blood Cell 4.66 4.58 - 5.54 x10(6)/mc L [facility] Hemoglobin 13.6(L) 13.7 - 16.5 g/dL [facility] Hematocrit 39.1(L) 40.5 - 48.5 % [facility] Mean Cell Volume 83.9 82.9 - 93.[address] [facility] Mean Cell Hemoglobin 29.2 27.5 - 32.[address] [facility] Mean Cell Hemoglobin Concentration 34.8 32.0 - 35.7 g/dL [facility] Platelet 246 145 - 357 x10(3)/mc L [facility] RDW Standard Deviation 35.0(L) 36.0 - 45.[address] [facility] RDW coefficient of variation 11.5 11.4 - 13.8 % [facility] Mean Platelet Volume 11.9 7.6 - 12.9 [facility] NRBC% auto 0.0 % [facility] NRBC Absolute 0.000 0.000 - 0.000 x10(3)/mc L [facility] Blood 05/31/2024 5:26 AM EDT 05/31/2024 5:58 AM EDT Narrative Resulting Agency Comment Spec In Lab Lili Tapia MD HEMATOLOGY ORDERA BLES Performing Organization Address City/State/[facility] Co de Phone Number [facility] [place] [address] * Heparin (unfractionated) Level (05/31/2024 5:26 AM EDT) UF Heparin 0.36 IU/mL [facility] Comment: Specimen drawn more than one [...] DO HEMATOLOGY ORDERABLE S Performing Organization Address [facility] Co de Phone Number [facility] [place] [address] * Phosphorus (05/31/2024 5:26 AM EDT) Phosphorus 3.1 2.5 - 4.5 mg/dL [facility] Blood 05/31/2024 5:26 AM EDT 05/31/2024 5:58 AM EDT Narrative Resulting Agency Comment Spec In Lab Jerry Marin MD CHEMISTRY ORDERABLES Performing Organization Address [facility] Co de Phone Number [facility] [place] [place] [address] * Magnesium (05/31/2024 5:26 AM EDT) Magnesium 0.83 0.69 - 1.07 mmol/L [facility] Blood 05/31/2024 5:26 AM EDT 05/31/2024 5:58 AM EDT Narrative Resulting Agency Comment Spec In Lab Jerry Marin MD CHEMISTRY ORDERABLES Performing Organization Address [facility] Co de Phone Number [facility] [place] [place] [address] * (ABNORMAL) Basic Metabolic Panel (non-fasting) (05/31/2024 5:26 AM EDT) Glucose 273(H) 65 - 199 mg/dL [facility] Comment:Diabetes: >=200 mg/d L plus symptoms Blood Urea Nitrogen 7(L) 10 - 20 mg/dL [facility] Creatinine 0.55(L) 0.80 - 1.50 mg/dL [facility] Sodium 133(L) 135 - 145 mmol/L [facility] Potassium 3.9 3.5 - 5.0 mmol/L [facility] Comment: Please note: ??Patients with WBC >100,000 may have falsely elevated Potassium levels. ??For accurate Potassium quantification in these patients send serum separator tube (gold top) for subsequent determinations. ??Contact the Clinical Chemistry Laboratory if there are any questions. Chloride 99 98 - 107 mmol/L [facility] Carbon Dioxide 22 22 - 31 mmol/L [facility] Anion Gap 12 5 - 15 mmol/L [facility] Calcium 9.0 8.5 - 10.5 mg/dL [facility] Est Glomerular Filtration Rate 121 >=60 mL/min/1. 73 m?? [facility] Comment: This patient's estimated GFR [...] In Lab Jerry Marin MD CHEMISTRY ORDERABLES [facility] [place] [id number] * LDL Cholesterol, Direct (05/31/2024 5:26 AM EDT) LDL Cholesterol, Direct 86 mg/dL [facility] Comment: Desirable: ? <100 mg/dL Above Desirable: 100-129 mg/dL Borderline High: 130-159 mg/dL High: ?160-189 mg/dL Very High: ? >ux=273 mg/dL If not reaching LDL goals on [...] In Lab Jerry Marin MD CHEMISTRY ORDERABLES [facility] [place] [place] [address] * HDL/Cholesterol Profile (05/31/2024 5:26 AM EDT) Cholesterol, Total 156 mg/dL [facility] Comment: Desirable: ? <200 mg/dL Borderline High: 200-239 mg/dL Higher: ?>zq=474 mg/dL HDL Cholesterol 33 mg/dL [facility] LABORATORY Comment: Females: High Risk: <50 mg/dL Males: High Risk: <40 mg/dL Lipid Interpretation See Note [facility] Comment: It is important to [...] even lower. ACC/AHA Guidelines (most recently Johann alvarez al. [facility] 08/11/22): For individuals with atherosclerotic cardiovascular disease (ASCVD)or LDL >xb=817 mg/dL, use a high-intensity statin (40-80 mg [...] In Lab Jerry Marin MD CHEMISTRY ORDERABLES [facility] [place] [place] [address] * (ABNORMAL) Rapid Drug Screen w/o Confirmation, Urine (05/31/2024 5:00 AM EDT) Pathologist [facility] Barbiturates Screen, Urine None Detected None Detected [facility] Comment: The barbiturate screen detects [...] Benzodiazepines Screen, Urine None Detected None Detected [facility] Comment: The benzodiazepines screen detects [...] Cocaine Screen, Urine Presumptive Pos(A) None Detected [facility] Comment: The cocaine metabolites screen detects benzoylecgonine (Cocaine Metabolite) at concentrations >150 ng/mL. A ? Presumptive Positive? result indicates that the screening result was positive but has not yet been confirmed by a highly-specific method. As with any screen, occasional false positive results from cross-reacting substances may occur. Not for Medico-Legal Purposes. Methadone Metabolites Screen, Urine None Detected None Detected [facility] Comment: The methadone metabolite screen detects EDDP (major methadone metabolite) at concentrations >100 ng/mL. A ? Presumptive Positive? result indicates that the screening result was positive but has not yet been confirmed by a highly-specific method. As with any screen, occasional false positive results from cross-reacting substances may occur. Not for Medico-Legal Purposes. Opiate Screen, Urine None Detected None Detected [facility] Comment: The opiates screen detects [...] Cannabinoid Screen, Urine None Detected None Detected [facility] Comment: The marijuana metabolites screen detects the THC metabolite (67-zep-6-carboxy-delta 9-THC) at concentrations >20 ng/mL. A ? Presumptive Positive? result indicates that the screening result was positive but has not yet been confirmed by a highly-specific method. As with any screen, occasional false positive results from cross-reacting substances may occur. Not for Medico-Legal Purposes. Oxycodone Screen, Urine Presumptive Pos(A) None Detected [facility] Comment: The oxycodone screen detects oxycodone and oxymorphone at concentrations >100 ng/mL. A ? Presumptive Positive? result indicates that the screening result was positive but has not yet been confirmed by a highly-specific method. As with any screen, occasional false positive results from cross-reacting substances may occur. Not for Medico-Legal Purposes. Buprenorphine Screen, Urine None Detected None Detected [facility] Comment: The buprenorphine screen detects [...] characteristics of this test were determined by [facility] in accordance with CLIA requirements. This laboratory is qualified under CLIA to perform high-complexity testing. Fentanyl Screen, Urine None Detected None Detected [facility] Comment: The fentanyl screen detects [...] characteristics of this test were determined by [facility] in accordance with CLIA requirements. This laboratory is qualified under CLIA to perform high-complexity testing. Tricyclics Screen, Urine Presumptive Pos(A) None Detected [facility] Comment: The tricyclics screen detects [...] characteristics of this test were determined by [facility] in accordance with CLIA requirements. This laboratory is qualified under CLIA to perform high-complexity testing. Ethanol Screen, Urine None Detected None Detected [facility] Comment:This urine ethanol a ssay detects ethanol at concentrations >/= 100 mg/L. Amphetamines Screen, Urine None Detected None Detected [facility] Comment: The amphetamine screen detects d-amphetamine and d-methamphetamine at concentrations >300 ng/mL. A ? Presumptive Positive? result indicates that the screening result was positive but has not yet been confirmed by a highly-specific method. As with any screen, occasional false positive results from cross-reacting substances may occur. Not for Medico-Legal Purposes. Creatinine Specimen Validity Test, Urine 58 >=20 mg/dL [facility] Chromate Specimen Validity Test, Urine <2.0 <=49.9 mg/L [facility] Nitrite Specimen Validity Test, Urine <50 <=499 mg/L [facility] Oxidant Specimen Validity Test, Urine 10 <=199 mg/L [facility] pH Specimen Validity Test, Urine 6.8 3.0 - 10.9 [facility] Adulterants Screen, Urine None Detected None Detected [facility] Comment:No adulteration of t his urine sample was detected. Urine 05/31/2024 5:00 AM EDT 05/31/2024 5:31 AM EDT Narrative Resulting Agency Comment Spec In Lab Rubio Grimaldo MD CHEMISTRY ORDERABL ES [facility] [place] [address] * (ABNORMAL) Urinalysis without microscopic (05/31/2024 5:00 AM EDT) Glucose, Urine Dipstick >=1000(Criti masoud) Negative mg/dL [facility] Comment: Urinalysis result NOT critical without a combination of Glucose greater than or equal to 500 mg/dL AND Ketones greater than or equal to 80 mg/dL Protein, Urine Dipstick Negative Negative mg/dL [facility] Bilirubin, Urine Dipstick Negative Negative mg/dL [facility] Comment: Clinical correlation required for positive Urine Bilirubin results as false positive may occur with some drugs and drug related products. If a false positive is suspected a serum total bilirubin should be considered if clinically indicated. Urobilinogen, Urine Dipstick Normal Normal mg/dL [facility] pH, Urn (dipstick) 7.0 5.0 - 8.0 [facility] Blood, Urine Dipstick Negative Negative mg/dL [facility] Ketone, Urine Dipstick Negative Negative mg/dL [facility] Nitrite, Urine Dipstick Negative Negative [facility] Leukocytes, Urine Dipstick Negative Negative [facility] Appearance, Urine Dipstick Clear Clear [facility] Specific [place] Urine Automated >=1.030(A) 1.005 - 1.030 [facility] Color, Urine Dipstick Yellow Yellow [facility] Urine 05/31/2024 5:00 AM EDT 05/31/2024 5:31 AM EDT Narrative Resulting Agency Comment Spec In Lab Jerry Marin MD URINE ORDERABLES [facility] [place] [address] * Rapid Drug Screen, Urine (IVAN Request) (05/31/2024 5:00 AM EDT) IVAN Conf Requested No [facility] IVAN Requested See Comment [facility] Comment:Refer to Rapid Drug Screen w/o Confirmation, Urine for results. Urine 05/31/2024 5:00 AM EDT 05/31/2024 5:31 AM EDT Narrative Resulting Agency Comment Spec In Lab Jerry Marin MD URINE ORDERABLES [facility] [place] [address] * CT Lower Extremity w Contrast Left (05/30/2024 7:27 PM EDT) WORKSTATION ID [id number] RAD Anatomical Region Laterality Modality Hip, Leg, [...] who have questions please contact the health healthcare recruiter that requested your imaging first. ? Narrative [...] patients who have questions please contactthe health healthcare recruiter that requested your imaging first. Jerry Marin MD IMG CT ORDERABLES * POCT Glucose (05/30/2024 5:41 PM EDT) Glucose, POC 164 65 - 199 mg/dL [facility] Comment: Supplemental ranges: <140 mg/dL before meals <180 mg/dL all other times of the day Blood 05/30/2024 5:41 PM EDT 05/30/2024 5:41 PM EDT Jerry Marin MD POINT OF CARE TEST O RDERABLES Performing Organization Address City/[facility]/ZIP Co de Phone Number [facility] [place] [address] * Phosphorus (05/30/2024 4:47 PM EDT) Phosphorus 3.8 2.5 - 4.5 mg/dL [facility] Blood 05/30/2024 4:47 PM EDT 05/30/2024 4:58 PM EDT Narrative Resulting Agency Comment Spec In Lab Jerry Marin MD CHEMISTRY ORDERABLES Performing Organization Address City/[facility]/ZIP Co de Phone Number [facility] [place] [address] * Magnesium (05/30/2024 4:47 PM EDT) Magnesium 0.86 0.69 - 1.07 mmol/L [facility] Blood 05/30/2024 4:47 PM EDT 05/30/2024 4:58 PM EDT Narrative Resulting Agency Comment Spec In Lab Jerry Marin MD CHEMISTRY ORDERABLES Performing Organization Address [facility]/ZIP Co de Phone Number [facility] [place] [address] * (ABNORMAL) Basic Metabolic Panel (non-fasting) (05/30/2024 4:47 PM EDT) Glucose 192 65 - 199 mg/dL [facility] Comment:Diabetes: >=200 mg/d L plus symptoms Blood Urea Nitrogen 7(L) 10 - 20 mg/dL [facility] Creatinine 0.58(L) 0.80 - 1.50 mg/dL [facility] Sodium 134(L) 135 - 145 mmol/L [facility] Potassium 3.9 3.5 - 5.0 mmol/L [facility] Comment: Please note: ??Patients with WBC >100,000 may have falsely elevated Potassium levels. ??For accurate Potassium quantification in these patients send serum separator tube (gold top) for subsequent determinations. ??Contact the Clinical Chemistry Laboratory if there are any questions. Chloride 99 98 - 107 mmol/L [facility] Carbon Dioxide 24 22 - 31 mmol/L [facility] Anion Gap 11 5 - 15 mmol/L [facility] Calcium 9.1 8.5 - 10.5 mg/dL [facility] Est Glomerular Filtration Rate 119 >=60 mL/min/1. 73 m?? [facility] Comment: This patient's estimated GFR [...] In Lab Jerry Marin MD CHEMISTRY ORDERABLES [facility] [place] [address] * (ABNORMAL) POCT Glucose (05/30/2024 12:42 PM EDT) Pathologist [facility] Glucose, POC 200(H) 65 - 199 mg/dL [facility] Comment: Supplemental ranges: <140 mg/dL before meals <180 mg/dL all other times of the day Blood 05/30/2024 12:4 2 PM EDT 05/30/2024 12:42 PM EDT Jerry Marin MD POINT OF CARE TEST O RDERABLES [facility] [place] [address] * NM Pharmacologic Stress CT Component (05/30/2024 11:20 AM EDT) [facility] [employer] WORKSTATION ID [id number] RAD Anatomical Region Laterality Modality Nuclear Medicine Narrative [...] who have questions please contact the health healthcare recruiter that requested your imaging first. ? Procedure [...] patients who have questions please contactthe health healthcare recruiter that requested your imaging first. Jerry Marin MD [facility]LES * Nuclear Pharmacologic Stress Cardiology (05/30/2024 10:48 AM EDT) Anatomical Region Laterality Modality Other Jerry Marin MD CARDIAC SERVICES ORD ERABLES * NM Pharmacologic Stress and Rest Myocardial Perfusion (05/30/2024 10:40 AM EDT) WORKSTATION ID [id number] [facility] Anatomical Region Laterality Modality Nuclear Medicine Impressions [...] who have questions please contact the health healthcare recruiter that requested your imaging first. ? Narrative [...] patients who have questions please contactthe health healthcare recruiter that requested your imaging first. Jerry Marin MD IMG [place] ORDERABLES * (ABNORMAL) POCT Glucose (05/30/2024 7:49 AM EDT) Glucose, POC 216(H) 65 - 199 mg/dL [facility] Comment: Supplemental ranges: <140 mg/dL before meals <180 mg/dL all other times of the day Blood 05/30/2024 7:49 AM EDT 05/30/2024 7:49 AM EDT Jerry Marin MD POINT OF CARE TEST O RDERABLES Performing Organization Address [facility]/ZIP Co de Phone Number [facility] [place] [address] * (ABNORMAL) POCT Glucose (05/30/2024 6:39 AM EDT) Glucose, POC 238(H) 65 - 199 mg/dL [facility] Comment: Supplemental ranges: <140 mg/dL before meals <180 mg/dL all other times of the day Blood 05/30/2024 6:39 AM EDT 05/30/2024 6:39 AM EDT Jerry Marin MD POINT OF CARE TEST O RDERABLES Performing Organization Address City/[facility]/ZIP Co de Phone Number [facility] [place] [place] [address] * (ABNORMAL) Differential, Automated (05/30/2024 12:39 AM EDT) Neutrophil % 68.3 % [facility] Neutrophil Absolute 6.33(H) 1.70 - 6.10 x10(3)/mc L [facility] Lymph % 21.9 % [facility] Lymphocytes Abs 2.0 0.9 - 3.2 x10(3)/ L [facility] Monocyte % 6.1 % [facility] Monocyte Abs 0.6 0.3 - 0.9 x10(3)/[facility] Eos % 2.5 % [facility] Eosinophils Abs 0.2 0.0 - 0.4 x10(3)/[facility] Basophil % 0.8 % [facility] Baso Absolute 0.1 0.0 - 0.1 x10(3)/[facility] Immature Gran % 0.40 % [facility] Comment: Immature granulocytes(IG's)percentage and absolute count will include metamyelocytes, myelocytes, and promyelocytes. Blood smears from CBCs yielding IG's will be scanned manually for concordance. If this scan disagrees with the automated IG or if promyelocytes are noted, a manual differential will be performed. Immature Gran Absolute 0.04 0.00 - 0.04 x10(3)/[facility] Blood 05/30/2024 12:3 9 AM EDT 05/30/2024 12:54 AM EDT Narrative Resulting Agency Comment Spec In Lab Lili Tapia MD HEMATOLOGY ORDERA BLES [facility] [place] [address] * (ABNORMAL) Hemogram (05/30/2024 12:39 AM EDT) White Blood Cell 9.3 4.0 - 9.5 x10(3)/[facility] Red Blood Cell 4.51(L) 4.58 - 5.54 x10(6)/[facility] Hemoglobin 13.3(L) 13.7 - 16.5 g/dL [facility] Hematocrit 38.3(L) 40.5 - 48.5 % [facility] Mean Cell Volume 84.9 82.9 - 93.[address] [facility] Mean Cell Hemoglobin 29.5 27.5 - 32.[address] [facility] Mean Cell Hemoglobin Concentration 34.7 32.0 - 35.7 g/dL [facility] Platelet 193 145 - 357 x10(3)/mc L [facility] RDW Standard Deviation 35.1(L) 36.0 - 45.[address] [facility] RDW coefficient of variation 11.4 11.4 - 13.8 % [facility] Mean Platelet Volume 11.4 7.6 - 12.[address] [facility] NRBC% auto 0.0 % [facility] NRBC Absolute 0.000 0.000 - 0.000 x10(3)/mc L [facility] Blood 05/30/2024 12:3 9 AM EDT 05/30/2024 12:54 AM EDT Narrative Resulting Agency Comment Spec In Lab Lili Tapia MD HEMATOLOGY ORDERA BLES Performing Organization Address City/[facility]/ZIP Co de Phone Number [facility] [place] [address] * Phosphorus (05/30/2024 12:39 AM EDT) Phosphorus 2.9 2.5 - 4.5 mg/dL [facility] Blood 05/30/2024 12:3 9 AM EDT 05/30/2024 12:54 AM EDT Narrative Resulting Agency Comment Spec In Lab Jerry Marin MD CHEMISTRY ORDERABLES Performing Organization Address City/[facility]/ZIP Co de Phone Number [facility] [place] [place] [address] * Magnesium (05/30/2024 12:39 AM EDT) Magnesium 0.82 0.69 - 1.07 mmol/L [facility] Blood 05/30/2024 12:3 9 AM EDT 05/30/2024 12:54 AM EDT Narrative Resulting Agency Comment Spec In Lab Jerry Marin MD CHEMISTRY ORDERABLES [facility] [place] [address] * (ABNORMAL) Basic Metabolic Panel (non-fasting) (05/30/2024 12:39 AM EDT) Glucose 383(H) 65 - 199 mg/dL [facility] Comment:Diabetes: >=200 mg/d L plus symptoms Blood Urea Nitrogen 9(L) 10 - 20 mg/dL [facility] Creatinine 0.56(L) 0.80 - 1.50 mg/dL [facility] Sodium 132(L) 135 - 145 mmol/L [facility] Potassium 4.2 3.5 - 5.0 mmol/L [facility] Comment: Please note: ??Patients with WBC >100,000 may have falsely elevated Potassium levels. ??For accurate Potassium quantification in these patients send serum separator tube (gold top) for subsequent determinations. ??Contact the Clinical Chemistry Laboratory if there are any questions. Chloride 98 98 - 107 mmol/L [facility] Carbon Dioxide 22 22 - 31 mmol/L [facility] Anion Gap 12 5 - 15 mmol/L [facility] Calcium 8.7 8.5 - 10.5 mg/dL [facility] Est Glomerular Filtration Rate 120 >=60 mL/min/1. 73 m?? [facility] Comment: This patient's estimated GFR [...] Marin MD CHEMISTRY ORDERABLES Performing Organization Address [facility] Co de Phone Number [facility] [place] [address] * Heparin (unfractionated) Level (05/30/2024 12:39 AM EDT) UF Heparin 0.51 IU/mL [facility] Comment: Heparin (anti-Xa) levels [...] DO HEMATOLOGY ORDERABLE S Performing Organization Address [facility]/ZIP Co de Phone Number [facility] [place] [address] * Lower extremity vein map, bilat (05/29/2024 8:01 PM EDT) VB Text Report Department: Vascular Surgery Lab Patient: [id number] (GEOVANNA DIXON) CPT: 16370 Referring Physician: JERRY MARIN ?? Phone: Indications: [...] Text Report Department: Vascular Surgery Lab Patient: [id number] (GEOVANNA DIXON) CPT: 85809 Referring Physician: JERRY MARIN ?? Phone: Indications: [...] Jerry Marin MD VASCULAR ORDERABLES [facility] * Islet Antigen 2 Antibody (05/29/2024 7:55 PM EDT) Ia-2 Ab (MAY) 0.00 <=0.02 nmol/L [facility] Comment: ADDITIONAL INFORMATION This test was developed and its performance characteristics determined by [facility] in a manner consistent with CLIA requirements. This test has not been cleared or approved by the U.S. Food and Drug Administration. Test Performed by: [facility] - [address] [address] Card Cutter: Varun Steen Ph.D.; CLIA# [id number] Blood 05/29/2024 7:55 PM EDT 05/30/2024 8:43 AM EDT Narrative Resulting Agency Comment Spec In Lab Jerry Marin MD CHEMISTRY ORDERABLES Performing Organization Address [facility] de Phone Number [facility] [place] [address] * TSH (05/29/2024 7:55 PM EDT) Thyroid Stimulating Hormone 1.03 0.27 - 4.20 mcIU/mL [facility] Comment: Reference Interval (mcIU/mL): Females: ??First Trimester: 0.23-3.88 ??Second Trimester: 0.22-3.90 ??Third Trimester: 0.44-4.66 Blood 05/29/2024 7:55 PM EDT 05/29/2024 8:00 PM EDT Narrative Resulting Agency Comment Spec In Lab Jerry Marin MD CHEMISTRY ORDERABLES Performing Organization Address [facility] Co de Phone Number [facility] [place] [address] * GAD65 Antibody Assay (05/29/2024 7:55 PM EDT) Gad65 Ab (MARCH) 0.00 <=0.02 nmol/L [facility] Comment: ADDITIONAL INFORMATION This test was developed and its performance characteristics determined by [facility] in a manner consistent with CLIA requirements. This test has not been cleared or approved by the U.S. Food and Drug Administration. Test Performed by: [facility] - [address] [address] Card Cutter: Varun Steen Ph.D.; CLIA# [id number] Blood 05/29/2024 7:55 PM EDT 05/30/2024 8:43 AM EDT Narrative Resulting Agency Comment Spec In Lab Jerry Marin MD LAB SEND OUT ORDERAB LES Performing Organization Address City/[facility]/ZIP Co de Phone Number [facility] [place] [address] * Heparin (unfractionated) Level (05/29/2024 5:35 PM EDT) [facility] UF Heparin 0.50 IU/mL [facility] Comment: Heparin (anti-Xa) levels [...] DO HEMATOLOGY ORDERABLE S Performing Organization Address City/[facility]/ZIP Co de Phone Number [facility] [place] [address] * (ABNORMAL) POCT Glucose (05/29/2024 4:12 PM EDT) Glucose, POC 235(H) 65 - 199 mg/dL [facility] Comment: Supplemental ranges: <140 mg/dL before meals <180 mg/dL all other times of the day Blood 05/29/2024 4:12 PM EDT 05/29/2024 4:12 PM EDT Jerry Marin MD POINT OF CARE TEST O RDERABLES Performing Organization Address [facility] Co de Phone Number [facility] [place] [address] * EKG 12 Lead (05/29/2024 2:51 PM EDT) Ventricular rate 85 BPM MUSE SYSTEM Atrial Rate 85 BPM MUSE SYSTEM P-R Interval 156 ms MUSE SYSTEM QRS Duration 114 ms MUSE SYSTEM Q-T Interval 384 ms MUSE SYSTEM QTC Calculated (Bezet) 456 ms MUSE SYSTEM Calculated P [place] 16 degrees MUSE SYSTEM Calculated R [place] 21 degrees MUSE SYSTEM Calculated T [place] 15 degrees MUSE SYSTEM INTERPRETATION Normal sinus rhythm Normal ECG When compared with ECG of 28-MAY-2024 19:54, Premature ventricular complexes are no longer Present Confirmed by MD Dian, Asad ([id number]) on 05/30/2024 1:27:54 PM MUSE SYSTEM 05/29/2024 2:51 PM EDT 05/30/2024 1:27 PM EDT Vibha Benson APRN ECG ORDERABLES Performing Organization Address [facility] Co de Phone Number MUSE SYSTEM * ECHO COMPLETE W CONTRAST (05/29/2024 1:29 PM EDT) Anatomical Region Laterality Modality Cardiac Other 05/29/2024 10:3 3 AM EDT Narrative 05/29/2024 2:27 PM [place]T [address] [place] [address] ? Echocardiogram Report Name: GEOVANNA DIXON JR. ? Study Date: 05/29/2024 10:33 AM ? Patient Location: [id number] A : 1975 ? Height: 178 cm ? Account: [id number] Age: 49 yrs ? Weight: 102 kg Gender: Male ?BSA: 2.2 m2 Ordering Physician: JERRY MARIN Referring Physician: KAM SKINNER Performed By: Melina Marinelli RDCS Reason For Study: Limb ischemia Exam Location: [facility]. Interpretation Summary -Left ventricular systolic function is mildly reduced. The left ventricular ejection fraction is 47% by Stacy's biplane. There is akinesis of the inferior wall. -The right ventricle is of normal size. Right ventricular systolic function is normal. -No significant valvular disease noted on this study. -Compared with the previous echo performed on 08/21/23, the ejection fraction has decreased. Procedure Complete-[id number]. An agitated saline bubble contrast study was [...] Note Deandre Jones MD - 05/29/2024 [address] [place] [address] Echocardiogram Report Name: GEOVANNA DIXON JR. Study Date: 0:33 AM Patient Location: [id number] A : 1975 Height: 178 cm Account: [id number] Age: 49 yrs Weight: 102 kg Gender: Male BSA: 2.2 m2 Ordering Physician: JERRY MARIN Referring Physician: KAM SKINNER Performed By: Melina Marinelli RDCS Reason For Study: Limb ischemia Exam Location: [facility]. Interpretation Summary -Left ventricular systolic function is mildly reduced. The leftventricular ejection fraction is 47% by Stacy's biplane. There is akinesis of theinferior wall. -The right ventricle is of normal size. Right ventricular systolicfunction is normal. -No significant valvular disease noted on this study. -Compared with the previous echo performed on 08/21/23, the ejectionfraction has decreased. Procedure Complete-31222. An agitated saline bubble contrast study was [...] (ABNORMAL) POCT Glucose (05/29/2024 1:23 PM EDT) Glucose, POC 249(H) 65 - 199 mg/dL [facility] Comment: Supplemental ranges: <140 mg/dL before meals <180 mg/dL all other times of the day Blood 05/29/2024 1:23 PM EDT 05/29/2024 1:23 PM EDT Jerry Marin MD POINT OF CARE TEST O RDERABLES Performing Organization Address City/[facility]/ZIP Co de Phone Number [facility] [place] [address] * Heparin (unfractionated) Level (05/29/2024 9:52 AM EDT) UF Heparin 0.76 IU/mL [facility] Comment: Heparin (anti-Xa) levels [...] Lab Arthur Patel DO HEMATOLOGY ORDERABLE S [facility] [place] [address] * POCT Glucose (05/29/2024 8:48 AM EDT) Glucose, POC 157 65 - 199 mg/dL [facility] Comment: Supplemental ranges: <140 mg/dL before meals <180 mg/dL all other times of the day Blood 05/29/2024 8:48 AM EDT 05/29/2024 8:48 AM EDT Jerry Marin MD POINT OF CARE TEST O GILDA Performing Organization Address [facility] Co de Phone Number [facility] [place] [address] * (ABNORMAL) POCT Glucose (05/29/2024 4:00 AM EDT) Glucose, POC 218(H) 65 - 199 mg/dL [facility] Comment: Supplemental ranges: <140 mg/dL before meals <180 mg/dL all other times of the day Blood 05/29/2024 4:00 AM EDT 05/29/2024 4:00 AM EDT Jerry Marin MD POINT OF CARE TEST O GILDA Performing Organization Address [facility] Co de Phone Number [facility] [place] [address] * (ABNORMAL) POCT Glucose (05/29/2024 2:47 AM EDT) Glucose, POC 214(H) 65 - 199 mg/dL [facility] Comment: Supplemental ranges: <140 mg/dL before meals <180 mg/dL all other times of the day Blood 05/29/2024 2:47 AM EDT 05/29/2024 2:47 AM EDT Jerry Marin MD POINT OF CARE TEST O GILDA Performing Organization Address [facility] Co de Phone Number [facility] [place] [address] * (ABNORMAL) Hemoglobin A1c (05/29/2024 2:13 AM EDT) Hemoglobin A1c 12.6(H) 4.3 - 5.6 % [facility] Comment: Reference Range: 4.3 - [...] Mellitus, Diabetes Care 2013; 36: Suppl. 1, S59-77 Estimated Average Glucose 316 mg/dL [facility] Blood 05/29/2024 2:13 AM EDT 05/29/2024 8:03 AM EDT Narrative Resulting Agency Comment Spec In Lab Jerry Marin MD CHEMISTRY ORDERABLES [facility] [place] [address] * (ABNORMAL) Differential, Automated (05/29/2024 2:13 AM EDT) Neutrophil % 54.8 % [facility] Neutrophil Absolute 5.63 1.70 - 6.10 x10(3)/mc L [facility] Lymph % 34.0 % [facility] Lymphocytes Abs 3.5(H) 0.9 - 3.2 x10(3)/mc L [facility] Monocyte % 6.7 % [facility] Monocyte Abs 0.7 0.3 - 0.9 x10(3)/mc L [facility] Eos % 3.3 % [facility] Eosinophils Abs 0.3 0.0 - 0.4 x10(3)/mc L [facility] Basophil % 0.9 % [facility] Baso Absolute 0.1 0.0 - 0.1 x10(3)/mc L [facility] Immature Gran % 0.30 % [facility] Comment: Immature granulocytes(IG's)percentage and absolute count will include metamyelocytes, myelocytes, and promyelocytes. Blood smears from CBCs yielding IG's will be scanned manually for concordance. If this scan disagrees with the automated IG or if promyelocytes are noted, a manual differential will be performed. Immature Gran Absolute 0.03 0.00 - 0.04 x10(3)/mc L [facility] Blood 05/29/2024 2:13 AM EDT 05/29/2024 2:27 AM EDT Narrative Resulting Agency Comment Spec In Lab Lili Tapia MD HEMATOLOGY ORDERA BLES [facility] [place] [address] * (ABNORMAL) Hemogram (05/29/2024 2:13 AM EDT) White Blood Cell 10.3(H) 4.0 - 9.5 x10(3)/[facility] Red Blood Cell 4.74 4.58 - 5.54 x10(6)/[facility] Hemoglobin 14.2 13.7 - 16.5 g/dL [facility] Hematocrit 40.4(L) 40.5 - 48.5 % [facility] Mean Cell Volume 85.2 82.9 - 93.[address] [facility] Mean Cell Hemoglobin 30.0 27.5 - 32.[address] [facility] Mean Cell Hemoglobin Concentration 35.1 32.0 - 35.7 g/dL [facility] Platelet 158 145 - 357 x10(3)/[facility] RDW Standard Deviation 35.4(L) 36.0 - 45.0 [facility] RDW coefficient of variation 11.4 11.4 - 13.8 % [facility] Mean Platelet Volume 10.6 7.6 - 12.9 [facility] NRBC% auto 0.0 % [facility] NRBC Absolute 0.000 0.000 - 0.000 x10(3)/ L [facility] Blood 05/29/2024 2:13 AM EDT 05/29/2024 2:27 AM EDT Narrative Resulting Agency Comment Spec In Lab Lili Tapia MD HEMATOLOGY ORDERA BLES Performing Organization Address [facility] Co de Phone Number [facility] [place] [address] * (ABNORMAL) Heparin (unfractionated) Level (05/29/2024 2:13 AM EDT) UF Heparin 1.19(Crit ical) IU/mL [facility] Comment: Critical Result called by ?? [...] DO HEMATOLOGY ORDERABLE S Performing Organization Address [facility]/ZIP Co de Phone Number [facility] [place] [address] * Phosphorus (05/29/2024 2:13 AM EDT) Phosphorus 2.5 2.5 - 4.5 mg/dL [facility] Blood 05/29/2024 2:13 AM EDT 05/29/2024 2:27 AM EDT Narrative Resulting Agency Comment Spec In Lab Jerry Marin MD CHEMISTRY ORDERABLES Performing Organization Address City/[facility]/ZIP Co de Phone Number [facility] [place] [address] * Magnesium (05/29/2024 2:13 AM EDT) Magnesium 0.77 0.69 - 1.07 mmol/L [facility] Blood 05/29/2024 2:13 AM EDT 05/29/2024 2:27 AM EDT Narrative Resulting Agency Comment Spec In Lab Jerry Marin MD CHEMISTRY ORDERABLES Performing Organization Address [facility] Co de Phone Number [facility] [place] [address] * (ABNORMAL) Basic Metabolic Panel (non-fasting) (05/29/2024 2:13 AM EDT) Glucose 251(H) 65 - 199 mg/dL [facility] Comment:Diabetes: >=200 mg/d L plus symptoms Blood Urea Nitrogen 11 10 - 20 mg/dL [facility] Creatinine 0.52(L) 0.80 - 1.50 mg/dL [facility] Sodium 138 135 - 145 mmol/L [facility] Potassium 3.3(L) 3.5 - 5.0 mmol/L [facility] Comment: Please note: ??Patients with WBC >100,000 may have falsely elevated Potassium levels. ??For accurate Potassium quantification in these patients send serum separator tube (gold top) for subsequent determinations. ??Contact the Clinical Chemistry Laboratory if there are any questions. Chloride 102 98 - 107 mmol/L [facility] Carbon Dioxide 25 22 - 31 mmol/L [facility] Anion Gap 11 5 - 15 mmol/L [facility] Calcium 9.0 8.5 - 10.5 mg/dL [facility] Est Glomerular Filtration Rate 123 >=60 mL/min/1. 73 m?? [facility] Comment: This patient's estimated GFR [...] Marin MD CHEMISTRY ORDERABLES Performing Organization Address [facility] Co de Phone Number [facility] [place] [address] * (ABNORMAL) POCT Glucose (05/29/2024 12:25 AM EDT) Pathologist [facility] Glucose, POC 253(H) 65 - 199 mg/dL [facility] Comment: Supplemental ranges: <140 mg/dL before meals <180 mg/dL all other times of the day Blood 05/29/2024 12:2 5 AM EDT 05/29/2024 12:25 AM EDT Jerry Marin MD POINT OF CARE TEST O RDERABLES Performing Organization Address [facility] Co de Phone Number [facility] [place] [address] * EKG 12 Lead (05/28/2024 7:54 PM EDT) Ventricular rate 78 BPM MUSE SYSTEM Atrial Rate 78 BPM MUSE SYSTEM P-R Interval 156 ms MUSE SYSTEM QRS Duration 110 ms MUSE SYSTEM Q-T Interval 408 ms MUSE SYSTEM QTC Calculated (Bezet) 465 ms MUSE SYSTEM Calculated R [place] 6 degrees MUSE SYSTEM Calculated T [place] 8 degrees MUSE SYSTEM INTERPRETATION Sinus rhythm Occasional Premature ventricular complexes Cannot rule out Anterior infarct , age undetermined Abnormal ECG When compared with ECG of 22-AUG-2013 07:45, Premature ventricular complexes are now Present Confirmed by MD Olivarez Jose ([id number]) on 05/29/2024 5:47:25 AM MUSE SYSTEM 05/28/2024 7:54 PM EDT 05/29/2024 5:47 AM EDT Arthur Jorge AG ECG ORDERABLES MUSE SYSTEM * Type and Screen Validity (05/28/2024 6:20 PM EDT) T&S only valid at [facility]AT[facility] Comment:This Type and Screen result is only valid at the [facility] Blood 05/28/2024 6:20 PM EDT 05/28/2024 6:24 PM EDT Narrative Resulting Agency Comment Spec In Lab María Ugalde MD BLOOD BANK LAB ORDER RANDELL [facility] [place] [id number] * ABORH Recheck Status (05/28/2024 6:20 PM EDT) [facility] Type Recheck Completed [facility] Blood 05/28/2024 6:20 PM EDT 05/28/2024 6:24 PM EDT Narrative Resulting Agency Comment Spec In Lab María Ugalde MD BLOOD BANK LAB ORDER RANDELL [facility] [place] [place] [address] * Gold Tube HOLD (05/28/2024 6:20 PM EDT) Pathologist [facility] Gold Hold Sample in lab. [facility] Blood Venous Draw / Unknown 05/28/2024 6:20 PM EDT 05/28/2024 6:25 PM EDT Juan Santana MD CHEMISTRY ORDERABLES Performing Organization Address City/[facility]/ZIP Co de Phone Number [facility] [place] [address] * Differential, Automated (05/28/2024 6:20 PM EDT) Neutrophil % 56.3 % [facility] Neutrophil Absolute 3.94 1.70 - 6.10 x10(3)/[facility] Lymph % 32.7 % [facility] Lymphocytes Abs 2.3 0.9 - 3.2 x10(3)/[facility] Monocyte % 6.7 % [facility] Monocyte Abs 0.5 0.3 - 0.9 x10(3)/[facility] Eos % 3.0 % [facility] Eosinophils Abs 0.2 0.0 - 0.4 x10(3)/[facility] Basophil % 1.0 % [facility] Baso Absolute 0.1 0.0 - 0.1 x10(3)/[facility] Immature Gran % 0.30 % [facility] Comment: Immature granulocytes(IG's)percentage and absolute count will include metamyelocytes, myelocytes, and promyelocytes. Blood smears from CBCs yielding IG's will be scanned manually for concordance. If this scan disagrees with the automated IG or if promyelocytes are noted, a manual differential will be performed. Immature Gran Absolute 0.02 0.00 - 0.04 x10(3)/[facility] Blood 05/28/2024 6:20 PM EDT 05/28/2024 6:24 PM EDT Narrative Resulting Agency Comment Spec In Lab Juan Santana MD HEMATOLOGY ORDERABLE S Performing Organization Address City/[facility]/ZIP Co de Phone Number [facility] [place] [place] [address] * (ABNORMAL) Hemogram (05/28/2024 6:20 PM EDT) White Blood Cell 7.0 4.0 - 9.5 x10(3)/mc L [facility] Red Blood Cell 4.67 4.58 - 5.54 x10(6)/mc L [facility] Hemoglobin 14.1 13.7 - 16.5 g/dL [facility] Hematocrit 39.7(L) 40.5 - 48.5 % [facility] Mean Cell Volume 85.0 82.9 - 93.[address] [facility] Mean Cell Hemoglobin 30.2 27.5 - 32.[address] [facility] Mean Cell Hemoglobin Concentration 35.5 32.0 - 35.7 g/dL [facility] Platelet 162 145 - 357 x10(3)/mc L [facility] RDW Standard Deviation 35.3(L) 36.0 - 45.[address] [facility] RDW coefficient of variation 11.5 11.4 - 13.8 % [facility] Mean Platelet Volume 10.8 7.6 - 12.[address] [facility] NRBC% auto 0.0 % [facility] NRBC Absolute 0.000 0.000 - 0.000 x10(3)/mc L [facility] Blood 05/28/2024 6:20 PM EDT 05/28/2024 6:24 PM EDT Narrative Resulting Agency Comment Spec In Lab Juan Santana MD HEMATOLOGY ORDERABLE S [facility] [place] [address] * Type and screen (MC/CGP/BABITA) (05/28/2024 6:20 PM EDT) Pathologist [facility] ABORH Type A POSITIVE [facility] Patient BB History Found [facility] Expires at [id number] on: 05-31-2024 [facility] Ab Screen Interp Negative [facility] Blood 05/28/2024 6:20 PM EDT 05/28/2024 6:[address] [facility] - 05/28/2024 6:20 PM EDT This Type and Screen result is only valid at the [facility] Resulting Agency Comment Spec In Lab María Ugalde MD BLOOD BANK LAB ORDER RANDELL [facility] [place] [place] [address] * Lactate, whole blood, send to lab ([facility] (05/28/2024 6:20 PM EDT) Lactate WB 1.6 0.5 - 2.2 mmol/L [facility] Blood 05/28/2024 6:20 PM EDT 05/28/2024 6:23 PM EDT Narrative Resulting Agency Comment Spec In Lab Arthur Patel DO CHEMISTRY ORDERABLES Performing Organization Address [facility]/ZIP Co de Phone Number [facility] [place] [address] * APTT (05/28/2024 6:20 PM EDT) Partial Thromboplastin Time 26 25 - [address] [facility] Comment: The PTT is NOT appropriate for heparin monitoring. Use the Anti-Xa level for heparin monitoring (HEP UFH) or LMWH monitoring (HEP LMW). A PTT less than 37 seconds generally indicates adequate hemostasis. Blood 05/28/2024 6:20 PM EDT 05/28/2024 6:24 PM EDT Narrative Resulting Agency Comment Spec In Lab Arthur Patel DO HEMATOLOGY ORDERABLE S Performing Organization Address City/[facility]/ZIP Co de Phone Number [facility] [place] [address] * Prothrombin Time (05/28/2024 6:20 PM EDT) Prothrombin Time 10.6 9.4 - 12.[address] [facility] International Normalization Ratio 0.9 [facility] Comment: An INR <2.0 indicates [...] Lab Arthur Patel DO HEMATOLOGY ORDERABLE S [facility] [place] [address] * (ABNORMAL) Basic Metabolic Panel (non-fasting) (05/28/2024 6:20 PM EDT) Glucose 286(H) 65 - 199 mg/dL [facility] Comment:Diabetes: >=200 mg/d L plus symptoms Blood Urea Nitrogen 9(L) 10 - 20 mg/dL [facility] Creatinine 0.53(L) 0.80 - 1.50 mg/dL [facility] Sodium 135 135 - 145 mmol/L [facility] Potassium 3.9 3.5 - 5.0 mmol/L [facility] Comment: Please note: ??Patients with WBC >100,000 may have falsely elevated Potassium levels. ??For accurate Potassium quantification in these patients send serum separator tube (gold top) for subsequent determinations. ??Contact the Clinical Chemistry Laboratory if there are any questions. Chloride 99 98 - 107 mmol/L [facility] Carbon Dioxide 25 22 - 31 mmol/L [facility] Anion Gap 11 5 - 15 mmol/L [facility] Calcium 9.2 8.5 - 10.5 mg/dL [facility] Est Glomerular Filtration Rate 122 >=60 mL/min/1. 73 m?? [facility] Comment: This patient's estimated GFR [...] Patel DO CHEMISTRY ORDERABLES Performing Organization Address City/[facility]/ZIP Co de Phone Number [facility] [place] [address] * (ABNORMAL) POCT Glucose (05/28/2024 5:46 PM EDT) [facility] Signature Glucose, POC 262(H) 65 - 199 mg/dL [facility] Comment: Supplemental ranges: <140 mg/dL before meals <180 mg/dL all other times of the day Blood 05/28/2024 5:46 PM EDT 05/28/2024 5:46 PM EDT Emergency Dept POINT OF CARE TEST ORDERABLES [facility] [place] [place] [address] documented in this encounter Visit Diagnoses Diagnosis [...] on Wed05/29/24 at 1700, Until Discontinued, Routine Given 06/02/2024 4:07 PM EDT 80 mg Given 06/01/2024 4:40 PM EDT 80 mg Given 05/31/2024 4:04 PM EDT 80 mg benzonatate (Tessalon) capsule 100 mg 100 mg, Oral, 3 TIMES DAILY, First dose on Wed05/28/24 at 2110, Until Discontinued, DO NOT CRUSH [...] Wed05/28/24 at 1943, Until Wed06/02/24 at 2045, for discomfort with PIV insertion, Routine losartan [...] on Wed05/30/24 at 1627, Until Wed06/02/24 at 2045, Opioid Reversal, Please provide if patient is [...] Oral, DAILY WITH BREAKFAST, First dose on 05/29/24 at 0800, Until Discontinued, DO NOT CRUSH [...] Anuj Liu RN)2350 (Given - Provider: Lizett iSmmons, DAVID) 0538 (Given - Provider: Lizett Simmons RN)1143 (Given - Provider: Anuj Liu RN)1745 (Given - Provider: Anuj Liu RN) aspirin EC tablet 81 mg 81 mg, Oral, DAILY, First dose on Wed05/28/24 at 2003, Until Discontinued, Routine 0819 (Given - Provider: Anuj Liu RN) 0812 (Given - Provider: Venus Issa, DAVID) 0839 [...] Oral, 3 TIMES DAILY, First dose on Wed05/28/24 at 2110, Until Discontinued, DO NOT CRUSH [...] LPN)2019 (New Bag - Provider: Lizett Simmons RN)9 (Stopped - Provider: Lizett Simmons RN) 0436 (New Bag - Provider: Lizett Simmons RN)0506 (Stopped - Provider: Lizett Simmons RN)1143 (New Bag - Provider: Anuj Liu RN)1213 (Stopped - Provider: Anuj Liu RN) cholecalciferoL (Vitamin D3) tablet 1,000 Units 1,000 Units, Oral, DAILY, First dose on Wed05/29/24 at 0900, Until Discontinued, 40 units is equivalent to 1 mcg of cholecalciferol., Routine 0819 (Given - Provider: Anuj Liu RN) 08 (Given - Provider: Venus Issa RN) 0839 (Given - Provider: Anuj Liu RN) HYDROmorphone (Dilaudid) (0.5 mg/0.5 mL) injection syringe 0.3 mg (COMPLETED) 0.3 mg, Intravenous, ONCE, 1 dose, On Wed05/31/24 at 0830, Please give immediately prior to going for Duplex ultrasound., Routine 08 (Given - Provider: Anuj Liu RN) insulin glargine-ygfn (Semglee) (100 unit/mL) subcutaneous injection vial 20 Units (CANCELED) 20 Units, Subcutaneous, DAILY, First dose (after last modification) on Wed05/30/24 at 0930, Until Discontinued, Routine 08 (Given - Provider: Anuj Liu RN) 08 (Given - Provider: Venus Issa RN) insulin glargine-ygfn (Semglee) (100 unit/mL) subcutaneous injection vial 28 Units 28 Units, Subcutaneous, DAILY, First dose (after last modification) on Wed06/02/24 at 0900, Until Discontinued, Routine 09 (Given - Provider: Anuj Liu RN) insulin [...] Provider: Anuj Liu RN - Comment: BG 200)1636 (Given - Provider: Lalitha Hernandez LPN - Comment: [id number])2031 (Given - Provider: Maribel Lazo, DAVID) 0819 (Given - Provider: Venus Issa RN - Comment: Bg 288)1151 (Given - Provider: Anuj Liu RN - Comment: BG 264)1646 (Given - Provider: Anuj Liu RN - Comment: BG 178)2022 (Given - Provider: Lizett Simmons, DAVID) 0730 (Not Given - Provider: Anuj Liu RN - Reason: See comment - Comment: No [employer] ARCHITECT on the unit, due to short staffing, [...] Venus Issa RN) 0840 (Given - Provider: nAuj Liu RN) methylphenidate (Ritalin) tablet 20 mg [...] Liu RN) 0812 (Given - Provider: Venus Issa, DAVID) 0839 [...] RN) 0812 (Patch Removed - Provider: Venus Issa, DAVID)0814 (Patch Applied - Provider: Venus Issa RN) 08 (Patch Removed - Provider: Anuj Liu RN)0846 [...] - Provider: Lizett Simmons RN - Comment: Vilma UOneil) 0900 (Patch (dose and location) verified - Provider: Anuj Liu RN) oxyCODONE (Roxicodone) tablet 5 mg (COMPLETED) 5 mg, Oral, ONCE, 1 dose, On Wed05/31/24 at 0830, Please give roughly one hour prior to going for Duplex ultrasound this morning once placed on schedule, can give in addition to his currently ordered PRN oxycodone. , Routine 0819 (Given - Provider: Anuj Liu RN) pantoprazole EC (Protonix) tablet 40 mg 40 mg, Oral, DAILY, First dose on Wed05/29/24 at 0900, Until Discontinued, DO NOT CRUSH OR OPEN, Routine 0818 (Given - Provider: Anuj Liu RN) 08 (Given - Provider: Venus Issa RN) 0838 (Given - Provider: Anuj Liu RN) senna-docusate (Pericolace) 8.6-50 mg per tablet 2 tablet 2 tablet, Oral, 2 TIMES DAILY, First dose on Wed05/28/24 at 2100, Until Discontinued, Hold for loose stool. , Routine 08 (Given - Provider: Anuj Liu RN)2032 (Given - Provider: Maribel Lazo, DAVID) 08 (Given - Provider: Venus Issa, DAVID)2019 (Given - Provider: Lizett Simmons RN) 0839 (Given - Provider: Anuj Liu RN) sodium chloride 0.9 % (flush) (BD PosiFlush Normal Saline 0.9) flush 5 mL 5 mL, Intravenous, 2 TIMES DAILY, First dose on Wed05/28/24 at 2100, Until Discontinued, Routine 08 (Given - Provider: Anuj Liu RN)2032 (Given - Provider: Maribel Lazo, DAVID) 08 (Given - Provider: Venus Issa, DAVID)2020 (Given - Provider: Lizett Simmons RN) 09 (Given - Provider: Anuj Liu RN) venlafaxine XR (Effexor-XR) capsule 225 mg 225 mg, Oral, DAILY WITH BREAKFAST, First dose on Wed05/29/24 at 0800, Until Discontinued, DO NOT CRUSH OR OPEN, Routine 817 (Given - Provider: Anuj Liu RN) 08 [...] Routine 1501 (New Bag - Provider: Anuj Liu RN) 0629 (New Bag - Provider: Maribel Lazo RN)2235 (New Bag - Provider: Lizett Simmons RN) 1037 (Stopped - Provider: Anuj Liu RN) PRN Medication Order 05/31/2024 06/01/2024 06/02/2024 dextrose 10% infusion(Linked Group 4) 250 mL, at 1,000 mL/hr, Intravenous, EVERY 15 MIN PRN, Starting on 05/29/24 at 1514, Until Wed06/02/24 at 2045, For [...] For pain 7-10 give 0.4mg dilaudid., Routine 0818 (Given - Provider: Venus Issa RN) insulin lispro (HumaLOG;Admelog) (100 unit/mL) subcutaneous injection vial 1-13 Units 1-13 Units, Subcutaneous, 3 TIMES DAILY PRN, Starting on Angelita 06/01/24 at 1123, Until Wed06/02/24 at 2044, with snacks, [employer] Give 1 unit for every 6 grams carbohydrate. Hold if not eating or if BG less than 70 mg/dL., Routine 1342 (Given - Provider: Anuj Liu, DAVID)1648 (Given - Provider: Anuj Liu RN) lidocaine (Xylocaine) 1% (10 mg/mL) injection 3 mg 3 mg (0.3 mL), Subcutaneous, ONCE PRN, 1 dose, Starting on Wed05/28/24 at 1943, Until Wed06/02/24 at 2044, for discomfort with PIV insertion, Routine naloxone (Narcan) (0.4 mg/mL) injection 0.4 mg 0.4 mg, Intravenous, ONCE PRN, 1 dose, Starting on 05/30/24 at 1627, Until Wed06/02/24 at 2044, Opioid [...] Maribel Lazo RN)1508 (Given - Provider: Anuj Liu RN)2034 (Given - Provider: Maribel Lazo RN) 0045 (Given - Provider: Maribel Lazo RN)0448 (Given - Provider: Maribel Lazo RN)1245 (Given - Provider: Anuj Liu, RN)1640 (Given - Provider: Anuj Liu, DAVID)2019 (Given - Provider: Lizett Simmons, DAVID) 0232 (Given - Provider: Lizett Simmons, DAVID)0840 (Given - Provider: Anuj Liu, RN)1342 (Given - Provider: Anuj Liu RN) [...] Routine documented in this encounter Care Teams Box Turner Relationship Specialty Start Date End Date None None PCP - General 05/27/24 documented as of this encounter
--- OUTSIDE RECORDS SUMMARY | 2024-07-25 15:02 | XMS_ITS | Encounter Summary ---
Author Organization [facility] Address [facility] [place] [address] Care Team Providers Care Plant And Equipment Worker Name Role Phone Guanako Gusman MD Primary Care Provider [phone] Reason for Visit * Reason Onset Date Comments Medication Refill 08/25/2013 Encounter Details Date Type Department Care Team (Late st Contact Info) Description 08/25/2013 Refill Cardiology at [address] [address] Sarthak Pollard MD [facility] [place] [address] Medication Refill Social History Tobacco Use Types [...] is covered on his plan. Per Jaye OK to change to Dexilant, called in 30mg daily. documented in this encounter Plan of Treatment Upcoming Encounters Date Type Department Care Team (Latest Contact Info) Description 08/01/2024 7:30 AM EDT Hospital Encounter [place] [address] Lisette Maldonado MD [facility] [place] [address] 08/01/2024 7:30 AM EDT - 08/01/2024 1:43 PM EDT Surgery [place] [address] Lisette Maldonado MD [facility] [place] [address] @BYPASS GRAFT, FEM-ANT TIBIAL, -POST TIBIAL, -PERONEAL, -DP W\ SYNTHETIC CONDUIT (WRVU 23.66) Scheduled Procedures Name Priority Associated Diagnoses Date/Ti me @BYPASS GRAFT, FEM-ANT TIBIA L, -POST TIBIAL, -PERONEAL, -DP W\ SYNTHETIC CONDUIT (WRVU 23.66) CLTI 08/01/2024 7:30 AM EDT documented as of this encounter Visit Diagnoses Diagnosis CAD (coronary artery disease)- Primary Coronary atherosclerosis of unspecified type of vessel, clark's point or graft documented in this encounter Care Teams Plant And Equipment Worker Relationship Specialty Start Date End Date Guanako Gusman MD PCP - General 12/29/11 02/26/19 documented as of this encounter
--- OUTSIDE RECORDS SUMMARY | 2024-07-25 15:02 | XMS_ITS | Encounter Summary ---
Author Organization [facility] Address [facility] [place] [address] Care Team Providers Care Support Dba Name Role Phone None Primary Care Provider Unavailabl e Encounter Details Date Type Department Care Team (Latest Contact Info) Description 05/28/2024 Travel Social History Tobacco Use Types Packs/Day Years Used Date Smoking Tobacco: Every Day Cigarettes 1 25 Started: 12/28/1986; Last attempted to quit: 12/28/2011 Alcohol Use Standard Drinks/Week Comments No 0 (1 standard drink = 0.6 oz pur e alcohol) [facility] Utilities Answer Date Recorded In [...] time in the past 12 m [facility], were you homeless or living in a [...] AM EDT Hospital Encounter [place] [address] Lisette Maldonado MD [facility] [place] [place] [address] 08/01/2024 7:30 AM EDT - 08/01/2024 1:43 PM EDT Surgery [place] [address] Lisette Maldonado MD [facility] [place] [address] @BYPASS GRAFT, FEM-ANT TIBIAL, -POST TIBIAL, -PERONEAL, -DP W\ SYNTHETIC CONDUIT (WRVU 23.66) Scheduled Procedures Name Priority Associated Diagnoses Date/Ti me @BYPASS GRAFT, FEM-ANT TIBIA L, -POST TIBIAL, -PERONEAL, -DP W\ SYNTHETIC CONDUIT (WRVU 23.66) [facility] 08/01/2024 7:30 AM EDT documented as of this encounter Visit Diagnoses Not on filedocumented in this encounter Care Teams Support Dba Relationship Specialty Start Date End Date None None PCP - General 05/27/24 documented as of this encounter
--- OUTSIDE RECORDS SUMMARY | 2024-07-25 15:03 | XMS_ITS | Encounter Summary ---
Author Organization [facility] Address [facility] [place] [address] Care Team Providers Care Security Systems Manager Name Role Phone Guanako Gusman MD Primary Care Provider [phone] Reason for Visit * Reason Comments Follow Up Surgery Encounter Details Date Type Department Care Team (Late st Contact Info) Description 02/09/2012 11:00 AM EDT Office [place] [address] Inna Tovar MD [facility] CARDIOTHORACIC [place] [address] Chest pain; S/P CABG (coronary artery bypass [...] FOR CABG performed by INNA TOVAR at [facility] MAIN OR ??? Cabg, artery-vein, single 01/04/2012 @CABG, VENOUS & ARTERIAL GRAFT;SINGLE VEIN GRAFT performed by INNA TOVAR at [facility] MAIN OR Outpatient prescriptions marked as [...] AM EDT Hospital Encounter [place] [address] Lisette Maldonado MD [facility] DR VASCULAR [place] [address] 08/01/2024 7:30 AM EDT - 08/01/2024 1:43 PM EDT Surgery [place] [address] Lisette Maldonado MD [facility] VASCULAR [place] [address] @BYPASS GRAFT, FEM-ANT TIBIAL, -POST TIBIAL, -PERONEAL, [...] (Bezet) 453 ms MUSE SYSTEM Calculated P Garfield 41 degrees MUSE SYSTEM Calculated R [place] 25 degrees MUSE SYSTEM Calculated T Gar[place] 74 degrees MUSE SYSTEM INTERPRETATION Sinus tachycardia [...] status documented in this encounter Care Teams Security Systems Manager Relationship Specialty Start Date End Date Guanako Gusman MD PCP - General 12/29/11 02/26/19 documented as of this encounter
--- OUTSIDE RECORDS SUMMARY | 2024-07-25 15:03 | XMS_ITS | Encounter Summary ---
Author Organization [facility] Address [facility] [place] [address] Care Team Providers Care Glassware Maker Demonstrator Name Role Phone Guanako Gusman MD Primary Care Provider [phone] Reason for Visit * Reason Onset Date Comments Follow-up 01/18/2012 Called patient t o follow up on smoking cessation counseling done while he was inpatient. Encounter Details Date Type Department Care Team (Late st Contact Info) Description 01/18/2012 Telephone [place] [address] Vibha Martines APRN [facility] [place] [address] Follow-up (Called patient to follow up on [...] He wanted to continue to go [place]. We agreed that I would call him [...] AM EDT Hospital Encounter [place] [address] Lisette Maldonado MD [facility] [place] [address] 08/01/2024 7:30 AM EDT - 08/01/2024 1:43 PM EDT Surgery [place] [address] Lisette Maldonado MD [facility] [place] [address] @BYPASS GRAFT, FEM-ANT TIBIAL, -POST TIBIAL, -PERONEAL, -DP W\ SYNTHETIC CONDUIT (WRVU 23.66) Scheduled Procedures Name Priority Associated Diagnoses Date/Ti me @BYPASS GRAFT, FEM-ANT TIBIA L, -POST TIBIAL, -PERONEAL, -DP W\ SYNTHETIC CONDUIT (WRVU 23.66) CLTI 08/01/2024 7:30 AM EDT documented as of this encounter Visit Diagnoses Not on filedocumented in this encounter Care Teams Glassware Maker Demonstrator Relationship Specialty Start Date End Date Guanako Gusman MD PCP - General 12/29/11 02/26/19 documented as of this encounter
--- OUTSIDE RECORDS SUMMARY | 2024-07-25 15:03 | XMS_ITS | Encounter Summary ---
Author Organization [facility] Address [facility] [place] [address] Care Team Providers Care Veterinary Technologist Name Role Phone Guanako Gusman MD Primary Care Provider [phone] Reason for Visit * Reason Comments Follow Up Surgery Encounter Details Date Type Department Care Team (Late st Contact Info) Description 03/08/2012 10:00 AM EDT Office Visit [place] [address] Inna Tovar MD [facility] [place] [address] S/P CABG (coronary artery bypass graft) (Primary [...] Since discharge, he has been doing fairly well except for sternal pain. This was severe in the past, and is slowly getting better. He still has pain, mainly at the level of the xyphoid, with movement. He is sleeping somewhat better .Hehas had no nightmares. He has been reasonably [...] FOR CABG performed by INNA TOVAR at [facility] MAIN OR ??? Cabg, artery-vein, single 01/04/2012 @CABG, VENOUS & ARTERIAL GRAFT;SINGLE VEIN GRAFT performed by INNA TOVAR at [facility] MAIN OR Outpatient prescriptions marked as taking [...] AM EDT Hospital Encounter [place] [address] Lisette Maldonado MD [facility] [place] [address] 08/01/2024 7:30 AM EDT - 08/01/2024 1:43 PM EDT Surgery [place] [phone] Lisette Maldonado MD [facility] [place] [address] @BYPASS GRAFT, FEM-ANT TIBIAL, -POST TIBIAL, -PERONEAL, [...] status documented in this encounter Care Teams Veterinary Technologist Relationship Specialty Start Date End Date Guanako Gusman MD PCP - General 12/29/11 02/26/19 documented as of this encounter
--- OUTSIDE RECORDS SUMMARY | 2024-07-25 15:03 | XMS_ITS | Encounter Summary ---
Author Organization [facility] Address [facility] [place] [address] Care Team Providers Care Book Author Name Role Phone Guanako Gusman MD Primary Care Provider [phone] Encounter Details Date Type Department Care Team (Late st Contact Info) Description 01/26/2012 Orders Only [place] [address] Benjamin Lockwood, PA [facility] DR CARDIOTHORACIC [place] [address] Social History Tobacco Use Types Packs/Day Years [...] AM EDT Hospital Encounter [place] [address] Lisette Maldonado MD [facility] [place] [address] 08/01/2024 7:30 AM EDT - 08/01/2024 1:43 PM EDT Surgery [place] [address] Lisette Maldonado MD [facility] [place] [address] @BYPASS GRAFT, FEM-ANT TIBIAL, -POST TIBIAL, -PERONEAL, -DP W\ SYNTHETIC CONDUIT (WRVU 23.66) Scheduled Procedures Name Priority Associated Diagnoses Date/Ti me @BYPASS GRAFT, FEM-ANT TIBIA L, -POST TIBIAL, -PERONEAL, -DP W\ SYNTHETIC CONDUIT (WRVU 23.66) CLTI 08/01/2024 7:30 AM EDT documented as of this encounter Visit Diagnoses Not on filedocumented in this encounter Care Teams Book Author Relationship Specialty Start Date End Date Guanako Gusman MD PCP - General 12/29/11 02/26/19 documented as of this encounter
--- OUTSIDE RECORDS SUMMARY | 2024-07-25 15:03 | XMS_ITS | Encounter Summary ---
Author Organization [facility] Address [facility] Jean Marie [facility] [place] [address] Care Team Providers Care Marketing Communications Coordinator Name Role Phone Patric Al MD Primary Care Provider [phone] Reason for Visit * Reason Onset Date Comments Medication Refill 01/11/2012 Encounter Details Date Type Department Care Team (Late st Contact Info) Description 01/11/2012 Refill Cardiothoracic Surgery [place] [id number] Zak Yoo III, PA [facility] [place] [address] Social History Tobacco Use Types Packs/Day Years [...] - 01/11/2012 4:59 PM EST TELEPHONE NOTE [id number] y.o. Date of call: 01/11/2012CABG X [...] Jr. Home Medication Instructions CRAIG: Printed on:01/11/12 1676 Medication Information HYDROmorphone (DILAUDID) 4 mg tablet [...] all instructions. DW Dr. Major-Attending available. Dr. Moralse will be updated today. Signed: ZAK YOO III, PA-C [facility] Section of Cardiothoracic Surgery Date: 01/11/12 PATRIC AL MD documented in this encounter Plan of Treatment Upcoming Encounters Date Type Department Care Team (Latest Contact Info) Description 08/01/2024 7:30 AM EDT Hospital Encounter [place] [address] Lisette Maldonado MD [facility] [place] [address] 08/01/2024 7:30 AM EDT - 08/01/2024 1:43 PM EDT Surgery [place] [phone] Lisette Maldonado MD [facility] [place] [address] @BYPASS GRAFT, FEM-ANT TIBIAL, -POST TIBIAL, -PERONEAL, -DP W\ SYNTHETIC CONDUIT (WRVU 23.66) Scheduled Procedures Name Priority Associated Diagnoses Date/Ti me @BYPASS GRAFT, FEM-ANT TIBIA L, -POST TIBIAL, -PERONEAL, -DP W\ SYNTHETIC CONDUIT (WRVU 23.66) CLTI 08/01/2024 7:30 AM EDT documented as of this encounter Visit Diagnoses Not on filedocumented in this encounter Care Teams Marketing Communications Coordinator Relationship Specialty Start Date End Date Patric Al MD PCP - General 12/29/11 02/26/19 documented as of this encounter
--- OUTSIDE RECORDS SUMMARY | 2024-07-25 15:03 | XMS_ITS | Encounter Summary ---
Author Organization [facility] Address [facility] [place] [address] Care Team Providers Care Medication Assistant Name Role Phone Guanako Gusman MD Primary Care Provider [phone] Encounter Details Date Type Department Care Team (Late st Contact Info) Description 02/09/2012 10:27 AM EDT - 02/09/2012 11:59 PM EDT Hospital Encounter XRay at [address] [place] [address] Chest pain Social History Tobacco Use Types [...] Sig Dispensed Refills Start Date End Date Lancets (FREESTYLE LANCETS) MiscIndications:predi abetes now s/p [...] for Pain. 40 tablet 0 02/09/2012 03/08/2012 Blood Sugar Diagnostic (FREESTYLE LITE STRIPS) test stripIndications:pred iabetes s/p CABG by Other route 2 times daily. 1 box = 100 test strips Indications: prediabetes s/p CABG 100 each 1 01/08/2012 07/21/2024 aspirin 81 mg chewable tablet Take 81 [...] AM EDT Hospital Encounter [place] [address] Lisette Maldonado MD [facility] [place] [address] 08/01/2024 7:30 AM EDT - 08/01/2024 1:43 PM EDT Surgery [place] [phone] Lisette Maldonado MD [facility] [place] [address] @BYPASS GRAFT, FEM-ANT TIBIAL, -POST TIBIAL, -PERONEAL, [...] unspecified documented in this encounter Care Teams Medication Assistant Relationship Specialty Start Date End Date Guanako Gusman MD PCP - General 12/29/11 02/26/19 documented as of this encounter
--- OUTSIDE RECORDS SUMMARY | 2024-07-25 15:03 | XMS_ITS | Encounter Summary ---
Author Organization [facility] Address [facility] [place] [address] Care Team Providers Care Harness Installer Name Role Phone Guanako Gusman MD Primary Care Provider [phone] Encounter Details Date Type Department Care Team (Late st Contact Info) Description 08/20/2013 Telephone Cardiology at [address] [phone] Luz Horvath MD [facility] [place] [address] Social History Tobacco Use Types Packs/Day Years [...] Transfer call from Dr. Akanksha Torres at [facility]. 38 yo s/p recent CABG 2 (MARTINEZ-> LAD, SVG-> PDA), noncompliance, poorly controlled [...] 70s, 99% on 2 L. Transfer to [facility] for mgmt of UA/NSTEMI in noncompliant diabetic with recent CABG. Likely cardiac cath tomorrow. documented in this encounter Plan of Treatment Upcoming Encounters Date Type Department Care Team (Latest Contact Info) Description 08/01/2024 7:30 AM EDT Hospital Encounter [place] [address] Lisette Maldonado MD [facility] [place] [address] 08/01/2024 7:30 AM EDT - 08/01/2024 1:43 PM EDT Surgery [place] [address] Lisette Maldonado MD [facility] [place] [address] @BYPASS GRAFT, FEM-ANT TIBIAL, -POST TIBIAL, -PERONEAL, -DP W\ SYNTHETIC CONDUIT (WRVU 23.66) Scheduled Procedures Name Priority Associated Diagnoses Date/Ti me @BYPASS GRAFT, FEM-ANT TIBIA L, -POST TIBIAL, -PERONEAL, -DP W\ SYNTHETIC CONDUIT (WRVU 23.66) CLTI 08/01/2024 7:30 AM EDT documented as of this encounter Visit Diagnoses Not on filedocumented in this encounter Care Teams Harness Installer Relationship Specialty Start Date End Date Guanako Gusman MD PCP - General 12/29/11 02/26/19 documented as of this encounter
--- OUTSIDE RECORDS SUMMARY | 2024-07-25 15:03 | XMS_ITS | Encounter Summary ---
Author Organization [facility] Address [facility] [place] [address] Care Team Providers Care Independent Film Maker Name Role Phone Guanako Gusman MD Primary Care Provider [phone] Reason for Visit * Reason Onset Date Comments Sweats 01/16/2012 Encounter Details Date Type Department Care Team (Late st Contact Info) Description 01/16/2012 Telephone Cardiology at [address] [address] Maninder Brennan MD [facility] [place] [address] Sweats Social History Tobacco Use Types Packs/Day [...] HTN, hyperlipidemia, smoking, and narcolepsy calls the [facility] stating that he has been experiencing 'cold [...] AM EDT Hospital Encounter [place] [address] Lisette Maldonado MD [facility] [place] [address] 08/01/2024 7:30 AM EDT - 08/01/2024 1:43 PM EDT Surgery [place] [address] Lisette Maldonado MD [facility] [place] [address] @BYPASS GRAFT, FEM-ANT TIBIAL, -POST TIBIAL, -PERONEAL, -DP W\ SYNTHETIC CONDUIT (WRVU 23.66) Scheduled Procedures Name Priority Associated Diagnoses Date/Ti me @BYPASS GRAFT, FEM-ANT TIBIA L, -POST TIBIAL, -PERONEAL, -DP W\ SYNTHETIC CONDUIT (WRVU 23.66) CLTI 08/01/2024 7:30 AM EDT documented as of this encounter Visit Diagnoses Not on filedocumented in this encounter Care Teams Independent Film Maker Relationship Specialty Start Date End Date Guanako Gusman MD PCP - General 12/29/11 02/26/19 documented as of this encounter
--- OUTSIDE RECORDS SUMMARY | 2024-07-25 15:03 | XMS_ITS | Encounter Summary ---
Author Organization [facility] Address [facility] Jean Marie britton [place] [id number] Care Team Providers Care Eight Section Blower Name Role Phone Patric Al MD Primary Care Provider [phone] Reason for Referral * (Routine) - Closed by system - Referral Specialty Diagnoses / Procedures Referred By Contac t Referred To Contact Cardiac Rehabilitation Diagnoses NSTEMI (non-ST elevated myocardial infarction) Sarthak Pollard MD [facility] [place] [address] Referral ID Status Reason Start Date Expiration Date Visits Requested Visits Authorized [id number] Closed by system - Referral Evaluate and Treat 3 02/18/2014 1 1 Encounter Details Date Type Department Care Team (Latest Contact Info) Description 08/20/2013 12:58 PM EDT - 08/22/2013 3:38 PM EDT Hospital Encounter Inter[place] [address] Asad Biggs MD [facility] [place] [address] Sarthak Pollard MD [facility] [place] [address] Chest pain; Coronary artery disease; ACS (acute [...] appointments: -During 8am-5pm Wednesday through Wednesday call [phone] to speak with a nurse in the cardiology clinic -All other times call [phone] and ask to speak to the fish hatchery specialist ground crew lines person. Return to work/ usual actvities: 1 week, as tolerated. No squatting or lifting more than 10 pounds until then. Driving: No driving for 48 hours after catheterization. Follow up Appointments: PCP: PATRIC AL MD at [phone] to see you on WednesdayAugust 28 at 10:50 am. Nailer Hand, Dr. Oseguera, to see you on 09/20/14 at noon. Please call [phone] with questions. Diabetes medication instructions You should [...] * CHEST PAIN (ANGINA): AFTER YOUR VISIT (FAROESE) * CORONARY ARTERY DISEASE: AFTER YOUR VISIT (FAROESE) * DIABETES DIET GUIDELINES: AFTER YOUR VISIT (FAROESE) * HEART ATTACK: AFTER YOUR VISIT (FAROESE) * HEMOGLOBIN A1C: ABOUT THIS TEST (FAROESE) * HOME BLOOD GLUCOSE TEST: ABOUT THIS TEST (FAROESE) * CARDIAC CATHETERIZATION: AFTER YOUR VISIT (FAROESE) documented in this encounter Medications at Time of Discharge Medication Sig Dispensed Refills Start Date End Date aspirin 81 mg EC tablet Take 1 tablet by mouth daily. 30 tablet 11 08/22/2013 nitroGLYcerin (NITROSTAT) 0.[address] 1 tablet under the tongue daily as needed for Chest pain. 25 tablet 1 08/22/2013 Lancets (FREESTYLE LANCETS) MiscIndications:pred iabetes now s/p [...] 1 tablet by mouth daily. 60 tablet 08/22/2013 05/29/2024 insulin glargine (LANTUS) pen injection Inject 10 Units subcutaneously nightly. 3 mL 08/22/2013 06/02/2024 metFORMIN (GLUCOPHAGE) 500 mg tablet Take 1 tablet by mouth daily. 30 tablet 11 08/22/2013 06/02/2024 pantoprazole (PROTONIX) 40 mg tablet Take 1 tablet by mouth daily. 30 tablet 11 08/22/2013 08/25/2013 metoprolol tartrate (LOPRESSOR) 50 mg tablet Take 50 mg by mouth 2 times daily. 05/29/2024 Blood Sugar Diagnostic (FREESTYLE LITE STRIPS) test stripIndications:pre diabetes s/p CABG by Other route 2 times daily. 1 box = 100 test strips Indications: prediabetes s/p CABG 100 each 1 01/08/2012 07/21/2024 senna-docusate (PERICOLACE) 8.6-50 mg per tablet Take [...] Patient is a 38 y/o man from [place], [place]. He is disabled and on Social [...] Office of Care Management (OCM) / Clinical Social Sciences Chair (CRC)/ Initial Assessment Discussed patient with Provider [...] to drive with medication. 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 CURRENT FUNCTIONAL STATUS: same SOCIAL / FAMILY [...] he has Medicare D for prescriptions. Uses [facility] in [facility] CURRENT HOME/COMMUNITY SERVICES/EQUIPMENT: None ABRASIVE MIXER REFERRAL: Notified Alexandru SALCEDO regarding pt's [place]. Pt's [place] Medicaid is not active per Alexandru Casas MSW. PRIMARY CARE PHYSICIAN: PATRIC AL MD ALEJANDRA [phone] [facility] [id number] POTENTIAL DISCHARGE NEEDS: None identified at this [...] while hospitalized. Awaiting Endocrine consult. Calista Jaimes PROPAGATOR LABORER CRC/Jaye Dennison MSN BSN RN CRC Office of Care Managment Pager [phone] . * Padma Marquez I, RD - 08/22/2013 11:42 AM EDT Nutrition Services Education Note Diet Rx: [facility]/Low Fat Patient Active Problem List Diagnosis Code [...] loss options discussed Phase II Referral: [facility] Activity Summary: By discharge, patient will be [...] up with PCP or Dr Bird in [place] I reviewed the patient with and agree with the recommendations and plans * Sarthak Pollard MD - 08/22/2013 7:18 AM EDT Inpatient Cardiology Progress Note Patient Name: Lux Viet Dixon Jr. 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 [DISCONTINUED] sodium chloride 0.9% Stopped (08/20/13 3165) Physical Exam: Vital Signs: Last value Range [...] 201 198 247 Recent Labs Basename 08/21/13 035 INR 1.0 Recent Labs Basename 08/22/13 0403 [...] 2v CABG and recurrent angina, +NSTEMI pending [facility]. Stable. Plan: 1. CAD/ CABGx2, stable [...] discussed with Dr. Pollard. JUSTIN OROSCO Pager [phone] 08/22/2013 Cardiology Attending Note: I interviewed and [...] as oral agents. He lives in the [facility]. We will set him up to see Dr. Reji Lucia or one of his colleagues. Time spent at bedside and coordinating care: 35 mins. Sarthak Pollard MD, MS Staff Nailer Hand Pager [phone] * Latonya Sanders - 08/21/2013 10:28 PM [...] pulses are palpable. Latonya Sanders MD # [id number] * Sarthak Pollard MD - 08/21/2013 8:36 AM EDT Inpatient Cardiology Progress Note Patient Name: Lux Dixon Jr. 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 Coronary artery disease Priority: High NSTEMI 12-29-2011 Cath - LAD, PDA and Distal Circ Disease CABG 01-04-2012 (MARTINEZ-LAD, SVG-PDA) ??? TR (tricuspid regurgitation), mild Mild ME ??? CAD (coronary artery disease) 2009 , [...] mcg/min (08/21/13215) ??? heparin 2,150 Units/hr (08/21/13 5187) ??? sodium chloride 0.9% Stopped (08/20/13 207) Physical Exam: Vital Signs: Last value Range [...] 2v CABG and recurrent angina, +NSTEMI pending [facility]. Plan: 1. CAD/ CABGx2, [facility] today Needs risk factors addressed Has [...] to his RPDA and occlusion of his [place] RCA since that time of his last [...] 35 mins. Sarthak Pollard MD, MS Staff Nailer Hand Pager [phone] * Reny Kent RN - 08/20/2013 10:08 [...] notifiedto call RN if pain increases again. 2300) Per pre cath orders there are multiple orders for Normal saline to infuse. One states 75ml/hr and the other states for 200ml/hr to be started at midnight. Dr. Golden states to release the one for 200ml/hr anywhere between 00 and 0200. 0310) Patient alerted senior staff specialized employment that he is experiencing 3/10 left arm pain and a headache. [B/P 151/59]. Dr. Golden states to increase nitroglycerin gtt to 50mcg/min. Continue to monitor patient comfort. * Michelle Chong RN - 08/20/2013 3:00 PM EDT Complaining of 30/10 Chest Pain Radiating To Left arm Nitro Gtt Started Per 106/60 hr 69 nitro [facility] pain Level is 11/17 118/58 65 ekg ordered documented in this encounter H&P Notes * Eben Bingham MD - 08/20/2013 3:12 PM EDT Cardiology Admission H & P Patient Name: Lux Dixon Jr. MRN No - [id number] Date of - 1975 Age - 38 [...] MARTINEZ-LAD, SVG-PDA and Obesity transferred from [facility] because of CP which started yesterday while [...] relieved after 1 shot of morphine [place]. His work showed NSR ECG w/o ST changes, elevated 2nd set of trop and negative D-dimer, wbc of 15K, normal electrolytes, glucose of 546, normal BUN/cr. He was utypc213 of plavix and started on heparin gtt. He had some CP on arrival to [facility] which was 11-3/10. ECG was normal. Dr. Horvath suggested to [...] FOR CABG performed by INNA TOVAR at [facility] OR ??? Cabg, artery-vein, single 01/04/2012 @CABG, VENOUS & ARTERIAL GRAFT;SINGLE VEIN GRAFT performed by INNA TOVAR at [facility] OR Family History: Family History Problem [...] CABG MARTINEZ-LAD, SVG-PDA in 2011 transferred from [place] because of CP which is different than his previous episode of CP. This time pain started in arm and radiating to chest and is also mild 1-. He also drove for 6 hrs yesterday. He had positive tropsat [place] although his ECG was negative. The pain relieved after leaning forward. I have above mentioned DD and also his d-dimer at [place] was negative so low prob of PE. I would admit for ACS and cont heparin. i would also keep him NPO and starting on nitro drip per Dr. Horvath's rec. Admit to telemetry Cycle bio-markers Repeat EKG Continue aspirin, simvastatin, metoprolol, plavix 300 mg x1 (given at [place]) and heparin Check fasting lipid profile and [...] was reviewed and signed. 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 Diabetes History: Lux Dixon Jr. [...] of SVG to RPDA and occlusion of [place] RCA. LVEDP 21. PCI of mid and [...] up with PCP or Dr Bird in [place] ??? Obesity Weight is 130.5 Kg [...] in 2011 and obesity transferred from [facility] for chest pain which started the day [...] or vomiting. Hospital Course: On admission to [facility], he had CP on arrival to [facility] which was 1-01/15. ECG was normal. He [...] occlusion of SVG to RPDA, occlusion of [place] RCA. The SVG to RCA was not [...] up with PCP or Dr Bird in [place] Smoking cessation was advised & discussed. [...] appointments: -During 8am-5pm Wednesday through Wednesday call [phone] to speak with a nurse in the cardiology clinic -All other times call [phone] and ask to speak to the fish hatchery specialist ground crew lines person. Return to work/ usual actvities: 1 week, as tolerated. No squatting or lifting more than 10 pounds until then. Driving: No driving for 48 hours after catheterization. Follow up Appointments: PCP: PATRIC AL MD at [phone] to see you on WednesdayAugust 28 at 10:50 am. Nailer Hand, Dr. Oseguera, to see you on 09/20/14 at noon. Please call [phone] with questions. Diabetes medication instructions You should [...] Complete By Expires Referral to Cardiac Rehab [[id number] Custom] Process Instructions: If no progress note charted, please enter Clinical details in comments. Scheduling Instructions: Comments: Pt will participate in cardiac rehab @ [facility] Questions: Responses: Reason for referral NSTEMI Provider Contact Information: JALEN Billingsley NP Dr Bruce Andrus [phone] Discharge References/Attachments: Discharge References/Attachments CHEST PAIN (ANGINA): AFTER YOUR VISIT (FAROESE) CORONARY ARTERY DISEASE: AFTER YOUR VISIT (FAROESE) DIABETES DIET GUIDELINES: AFTER YOUR VISIT (FAROESE) HEART ATTACK: AFTER YOUR VISIT (FAROESE) HEMOGLOBIN A1C: ABOUT THIS TEST (FAROESE) HOME BLOOD GLUCOSE TEST: ABOUT THIS TEST (FAROESE) Signed: JUSTIN OROSCO Pager [phone] DATE: 08/22/2013 * Miscellaneous - Provider, Scanning - 08/20/2013 2:59 PM EDT * Miscellaneous - Provider, Scanning - 08/20/2013 2:58 PM EDT documented in this encounter Plan of Treatment Upcoming Encounters Date Type Department Care Team (Latest Contact Info) Description 08/01/2024 7:30 AM EDT Hospital Encounter [place] [address] Lisette Maldonado MD [facility] [place] [address] 08/01/2024 7:30 AM EDT - 08/01/2024 1:43 PM EDT [place] [address] Lisette Maldonado MD [facility] [place] [address] @BYPASS GRAFT, FEM-ANT TIBIAL, -POST TIBIAL, -PERONEAL, -DP W\ SYNTHETIC CONDUIT (WRVU 23.66) Scheduled Orders Name Type Priority Associated Diagnoses Orde r Schedule EKG 12 Lead ECG STAT Chest pain One Time for 1 Occurrences starting 08/20/2013 until 08/20/2013 Scheduled Procedures Name Priority Associated Diagnoses Date/Ti me @BYPASS GRAFT, FEM-ANT TIBIA L, -POST TIBIAL, -PERONEAL, -DP W\ SYNTHETIC CONDUIT (WRVU 23.66) CLTI 08/01/2024 7:30 AM EDT Scheduled Referrals Name Type Priority Associated Diagnoses Orde r Schedule Referral to Cardiac Rehab Outpatient Referral Routine NSTEMI (non-ST elevated myocardial infarction) Ordered: 08/22/2013 documented as of this encounter Procedures Procedure Name Priority Date/Time Associated Diagnosis Comments LAP MACHINE TENDER SCAN 08/24/2013 11:52 AM EDT POCT GLUCOSE Routine 08/22/2013 11:52 AM EDT POCT GLUCOSE Routine 08/22/2013 7:47 AM EDT EKG 12-LEAD Routine 08/22/2013 7:45 AM EDT Chest pain BMP W/FASTING GLUCOSE Routine 08/22/2013 4:03 AM EDT DIFFERENTIAL, AUTOMATED Routine 08/22/20 4:03 AM EDT CARDIAC ENZYMES ([facility]) Routine 08/22/2013 4:03 AM EDT CBC (WITH DIFF) Routine 08/22/2013 4:03 AM EDT POCT GLUCOSE Routine 08/21/2013 10:43 PM EDT POCT GLUCOSE Routine 08/21/2013 8:28 PM EDT CARDIAC ENZYMES ([facility]) STAT 08/21/2013 6:36 PM EDT POCT GLUCOSE [...] Routine 08/21/20 3:53 AM EDT CARDIAC ENZYMES ([facility]) Routine 08/21/2013 3:53 AM EDT APTT Routine [...] STAT 08/20/2013 11:51 PM EDT CARDIAC ENZYMES ([facility]) STAT 08/20/2013 9:40 PM EDT XR CHEST [...] 08/20/2013 1: 45 PM EDT CARDIAC ENZYMES ([facility]) Routine 08/20/2013 1:45 PM EDT APTT Routine 08/20/2013 1:45 PM EDT PROTHROMBIN TIME Routine 08/20/2013 1:45 PM EDT CBC (WITH DIFF) Routine 08/20/2013 1:45 PM EDT MAGNESIUM Routine 08/20/2013 1:45 PM EDT BASIC METABOLIC PANEL Routine 08/20/2013 1:45 PM EDT POCT GLUCOSE Routine 08/20/2013 1:23 PM EDT documented in this encounter Results * SCAN DOC: LAP MACHINE TENDER (08/24/2013 11:52 AM EDT) Anatomical Region Laterality Modality Other Narrative 08/24/2013 12:55 PM EDT Procedure Note Provider, Scanning - 08/24/2013 11:52 AM EDT Scanning Provider MEDIA MGR SCAN EXT O RDR/RSLT * (ABNORMAL) POCT Glucose (08/22/2013 11:52 AM EDT) [facility] Glucose, POC 225(H) 60 - 199 mg/dL [facility] Comment: Supplemental ranges: <110 mg/dL before meals <200 mg/dL all other times of the day Blood specimen (specimen) 08/22/2013 11:52 AM EDT 08/22/2013 11:52 AM EDT Asad Biggs MD POINT OF CARE TEST O RDERABLES Performing Organization Address [facility] Phone Number [facility] * POCT Glucose (08/22/2013 7:47 AM EDT) Glucose, POC 199 60 - 199 mg/dL [facility] Comment: Supplemental ranges: <110 mg/dL before meals <200 mg/dL all other times of the day Blood specimen (specimen) 08/22/2013 7:47 AM EDT 08/22/2013 7:47 AM EDT Asad Biggs MD POINT OF CARE TEST O RDERABLES Performing Organization Address [facility] Phone Number [facility] * EKG 12 Lead (08/22/2013 7:45 AM EDT) Ventricular rate 79 BPM MUSE SYSTEM Atrial Rate 79 BPM MUSE SYSTEM P-R Interval 182 ms MUSE SYSTEM QRS Duration 108 ms MUSE SYSTEM Q-T Interval 406 ms MUSE SYSTEM QTC Calculated (Bezet) 465 ms MUSE SYSTEM Calculated P Dunning 57 degrees MUSE SYSTEM Calculated R Dunning 23 degrees MUSE SYSTEM Calculated T Dunning 2 degrees MUSE SYSTEM INTERPRETATION Normal sinus rhythm Cannot rule out Inferior infarct , age undetermined When compared with ECG of 21-AUG-2013 14:53, Borderline criteria for Inferior infarct are now present Confirmed by Pablito Torres MD ([id number]) on 08/23/2013 10:09:45 AM MUSE SYSTEM 08/22/2013 7:45 AM EDT 08/23/2013 10:09 AM EDT Tim Uribe MD ECG ORDERABLES Performing Organization Address [facility] Phone Number MUSE SYSTEM * (ABNORMAL) Differential, Automated (08/22/2013 4:03 AM EDT) Neutrophil % 67.6 34.0 - 71.0 % CERNER ROBYENNIUM Neutrophil Absolute 6.79(H) 1.50 - 6.30 x10(3)/mc [...] % 0.60 0.00 - 0.66 % [facility]ERNER ROBYENNIUM Comment: Immature granulocytes(IG's)percentage and absolute count will include metamyelocytes, myelocytes, and promyelocytes. Blood smears from CBCs yielding IG's will be scanned manually for concordance. If this scan disagrees with the automated IG or if promyelocytes are noted, a manual differential will be performed. Immature Gran Absolute 0.06(H) 0.00 - 0.05 x10(3)/mc L ARIAN CERDAIUM Blood specimen (specimen) 08/22/2013 4:03 AM EDT 08/22/2013 4:42 AM EDT Tim Uribe MD HEMATOLOGY ORDERAB LES ARIAN NELSON * (ABNORMAL) BMP w/fasting Glucose (08/22/2013 4:03 AM EDT) Pathologist [facility] Glucose Fasting 170(H) 65 - 99 mg/dL [facility] PRASHANTIUM Comment: ?Fasting* Glucose Interpretive Criteria Normal ?65-99 [...] of Diabetes Mellitus, Position Statement from the [place] Diabetes Association. ??Diabetes Care, Volume 33, Supplement 1, Nov 2009 Blood Urea Nitrogen 6(L) 10 - 20 mg/dL CERNER MILLENNIUM Creatinine 0.62(L) 0.80 - 1.50 mg/dL CERNER MILLENNIUM Comment: Please note that the pediatric reference intervals supplied above were not validated at [facility]. Results from pediatric patients should be interpreted [...] MD CHEMISTRY ORDERABL ES Performing Organization Address [facility] Co de Phone Number ARIAN CAENNIUM * (ABNORMAL) Cardiac Enzymes (08/22/2013 4:03 AM EDT) Troponin-T 0.95(H) <=0.03 ng/mL ARIAN MILLENNIUM Comment: 0.03 ng/mL: Represents the 99th percentile upper reference limit for normals. >0.03 ng/mL: Elevated cardiac troponin T level indicative of myocardial damage. Diagnosis of acute, evolving or recent [place] requires a typical rise and gradual fall [...] consensus document of the Joint Society of Cardiology/[place] College of Cardiology Committee for the redefinition of myocardial infarction. Journal of the [place] College of Cardiology 2000; 36: 959-969] Creatine Kinase 455(H) 0 - 200 unit/L ARIAN CERDAIUM Blood specimen (specimen) 08/22/2013 4:03 AM EDT 08/22/2013 4:42 AM EDT Narrative Resulting Agency Comment Spec In Lab Tim Uribe MD CHEMISTRY ORDERABL ES Performing Organization Address [facility]/ZIP Co de Phone Number ARIAN CAENNIUM * (ABNORMAL) CBC (with Diff) (08/22/2013 4:03 AM EDT) White Blood Cell 10.0 4.0 - 10.0 x10(3)/mc L CERNER MILLENNIUM Red Blood Cell 4.17(L) 4.63 - 6.08 x10(6)/mc L [facility] Hemoglobin 12.7(L) 13.7 - 17.5 gm/dL [facility] Hematocrit 37.7(L) 40.0 - 51.0 % [facility] Mean Cell Volume 90.4 79.0 - 92.[address] [facility] Mean Cell Hemoglobin 30.5 25.6 - 32.[address] [facility] Mean Cell Hemoglobin Concentration 33.7 32.0 - 36.5 gm/dL [facility] Platelet 201 145 - 370 x10(3)/mc L [facility] RDW Standard Deviation 40.4 35.0 - 46.[address] [facility] RDW coefficient of variation 12.4 10.9 - 14.4 % [facility] Mean Platelet Volume 11.2 9.0 - 12.[address] Blood specimen (specimen) 08/22/2013 4:03 AM EDT 08/22/2013 4:42 AM EDT Narrative Resulting Agency Comment Spec In Lab Tim Uribe MD HEMATOLOGY ORDERAB LES Performing Organization Address City/[facility]/ZIP Co de Phone Number [facility] * POCT Glucose (08/21/2013 10:43 PM EDT) Glucose, POC 193 60 - 199 mg/dL [facility] Comment: Supplemental ranges: <110 mg/dL before meals <200 mg/dL all other times of the day Blood specimen (specimen) 08/21/2013 10:43 PM EDT 08/21/2013 10:43 PM EDT Asad Biggs MD POINT OF CARE TEST O RDERABLES Performing Organization Address [facility] Co de Phone Number [facility] * (ABNORMAL) POCT Glucose (08/21/2013 8:28 PM EDT) Glucose, POC 259(H) 60 - 199 mg/dL [facility] Comment: Supplemental ranges: <110 mg/dL before meals <200 mg/dL all other times of the day Blood specimen (specimen) 08/21/2013 8:28 PM EDT 08/21/2013 8:28 PM EDT Asad Biggs MD POINT OF CARE TEST O RDERABLES Performing Organization Address [facility] de Phone Number [facility] [employer] * (ABNORMAL) Cardiac Enzymes (08/21/2013 6:36 PM EDT) Troponin-T 0.93(H) <=0.03 ng/mL [facility] Comment: 0.03 ng/mL: Represents the 99th percentile upper reference limit for normals. >0.03 ng/mL: Elevated cardiac troponin T level indicative of myocardial damage. Diagnosis of acute, evolving or recent [place] requires a typical rise and gradual fall [...] consensus document of the Joint Society of Cardiology/[place] College of Cardiology Committee for the redefinition of myocardial infarction. Journal of the [place] College of [employer]iology 2000; 36: 959-969] Creatine Kinase 594(H) 0 - 200 unit/L [facility] Blood specimen (specimen) 08/21/2013 6:36 PM EDT 08/21/2013 6:47 PM EDT Narrative Resulting Agency Comment Spec In Lab Sarthak Pollard MD CHEMISTRY ORDERABLES Performing Organization Address [facility] Co de Phone Number [facility] [employer] * POCT Glucose (08/21/2013 4:25 PM EDT) Glucose, POC 138 60 - 199 mg/dL [facility] [employer] Comment: Supplemental ranges: <110 mg/dL before meals <200 mg/dL all other times of the day Blood specimen (specimen) 08/21/2013 4:25 PM EDT 08/21/2013 4:25 PM EDT Asad Biggs MD POINT OF CARE TEST O RDERABLES Performing Organization Address [facility] Co de Phone Number [facility] * EKG 12 Lead (08/21/2013 2:53 PM EDT) Ventricular rate 75 BPM MUSE SYSTEM Atrial Rate 75 BPM MUSE SYSTEM P-R Interval 172 ms MUSE SYSTEM QRS Duration 106 ms MUSE SYSTEM Q-T Interval 388 ms MUSE SYSTEM QTC Calculated (Bezet) 433 ms MUSE SYSTEM Calculated P Dunning 11 degrees MUSE SYSTEM Calculated R Dunning 35 degrees MUSE SYSTEM Calculated T Dunning 1 degrees MUSE SYSTEM INTERPRETATION Normal sinus rhythm Normal ECG When compared with ECG of 21-AUG-2013 02:54, No significant change was found Confirmed by Pablito Torres MD ([id number]) on 08/22/2013 3:01:48 PM MUSE SYSTEM 08/21/2013 2:53 PM EDT 08/22/2013 3:01 PM EDT Tim Uribe MD ECG ORDERABLES Performing Organization Address [facility] Co de Phone Number MUSE SYSTEM * Cardiac Catheterization (08/21/2013 2:38 PM EDT) Anatomical Region Laterality Modality Other Narrative 08/21/2013 7:29 PM EDT Procedure Note Provider, Scanning - 08/21/2013 3:30 PM EDT Asad Biggs MD CARDIAC CATH ORDERAB LES * (ABNORMAL) POCT Glucose (08/21/2013 11:37 AM EDT) Pathologist [facility] Glucose, POC 200(H) 60 - 199 mg/dL [facility] Comment: Supplemental ranges: <110 mg/dL before meals <200 mg/dL all other times of the day Blood specimen (specimen) 08/21/2013 11:37 AM EDT 08/21/2013 11:37 AM EDT Asad Biggs MD POINT OF CARE TEST O RDERABLES Performing Organization Address [facility] Co de Phone Number [facility] * (ABNORMAL) APTT (08/21/2013 11:09 AM EDT) Partial Thromboplastin Time 63(H) 25 - 35 sec [facility] Comment: Recommended therapeutic PTT range for full dose unfractionated heparin is 80-114 seconds. Blood specimen (specimen) 08/21/2013 11:09 AM EDT 08/21/2013 11:42 AM EDT Narrative Resulting Agency Comment Spec In Lab Asad Biggs MD HEMATOLOGY ORDERABLE S Performing Organization Address [facility] de Phone Number [facility] * Echocardiogram Transthoracic(Leb) (08/21/2013 9:16 AM EDT) EF 65 HEARTLAB SYSTEM Anatomical Region Laterality Modality Other 08/21/2013 Narrative 08/21/2013 9:51 AM EDT Procedure: ? Transthoracic Echocardiogram Patient: ? QUIANA Llanos ?(Age): 1975(38) Med Rec#: ?[id number] ? Sex: ?M ? Site Loc: ?[facility] ? Ht / Wt: ??180(cm)/127(kg) Pt. Loc: ? Adult Floor ?BSA: ?2.52 Study Date: ?08/21/2013 ? Pt. Type: Inpatient Tape: ? Referring: Eben Bingham Referring: AKANKSHA CAI Laser Print Operator: Patric Blunt RUST Interpreting Fellow: Luca Wilson ([id number]) Diagnosis: ??Chest pain (786.50) CPT Code(s): ??Echo Full (95154), ??Spectral Doppler (62050), ??Color Doppler (29164), Indication(s): ??Chest Pain Rhythm: HR ?BP ?121/62 [...] ? Mid-Inferior ?Normal ? Mid-Inferoseptal ?Normal ? [place]-Septal ? Normal ? [place]-Anterior ? Normal ? [place]-Lateral ?Normal ? [place]-Inferior ? Normal ? [place]-Tip ?Normal ? Chambers ?Value ?Units (Range) ? [...] 08/21/2013 09:50:27 Images reviewed and interpretation verified [facility] Resulting Agency Comment [id number] Procedure Note Umair Brock MD - 08/21/2013 Procedure: Transthoracic Echocardiogram Patient: QUIANA Llanos (Age): 1975(38) Med Rec#: [id number] Sex: M Site Loc: [facility] Ht / Wt: 180(cm)/127(kg) Pt. Loc: Adult Floor BSA: 2.52 Study Date: 08/21/2013 Pt. Type: Inpatient Tape: Referring: Eben Bingham Referring: AKANKSHA CAI Laser Print Operator: Patric Blunt RUST Interpreting Fellow: Luca Wilson ([id number]) Diagnosis: Chest pain (786.50) CPT Code(s): Echo Full (37879), Spectral Doppler (02710), Color Doppler (57285), Indication(s): Chest Pain Rhythm: HR BP 121/62 [...] Normal Mid-Posterolateral Normal Mid-Inferior Normal Mid-Inferoseptal Normal [place]-Septal Normal [place]-Anterior Normal [place]-Lateral Normal [place]-Inferior Normal [place]-Tip Normal Chambers Value Units (Range) LV EF [...] 08/21/2013 09:50:27 Images reviewed and interpretation verified [facility] Eben Ruiz MD ECHO ORDERABLES * (ABNORMAL) POCT Glucose (08/21/2013 8:33 AM EDT) Glucose, POC 202(H) 60 - 199 mg/dL [facility] Comment: Supplemental ranges: <110 mg/dL before meals <200 mg/dL all other times of the day Blood specimen (specimen) 08/21/2013 8:33 AM EDT 08/21/2013 8:33 AM EDT Asad Biggs MD POINT OF CARE TEST O RDERABLES Performing Organization Address [facility] Co de Phone Number [facility] [employer] TechnologyMETHODIST [facility] * (ABNORMAL) APTT (08/21/2013 3:53 AM EDT) Partial Thromboplastin Time 61(H) 25 - 35 sec [facility] Comment: Recommended therapeutic PTT range for full dose unfractionated heparin is 80-114 seconds. Blood specimen (specimen) 08/21/2013 3:53 AM EDT 08/21/2013 4:00 AM EDT Narrative Resulting Agency Comment Spec In Lab Eben Ruiz MD HEMATOLOGY ORDERABLE S Performing Organization Address City/[facility] Co de Phone Number [facility] [employer] TechnologyMETHOD[facility] * (ABNORMAL) Differential, Automated (08/21/2013 3:53 AM [...] Absolute 0.04 0.00 - 0.05 x10(3)/mc L CERBRIAN CAENNIUM Blood specimen (specimen) 08/21/2013 3:53 AM EDT 08/21/2013 4:00 AM EDT Eben Ruiz MD HEMATOLOGY ORDERABLE S ARIAN NELSON * (ABNORMAL) Cardiac Enzymes (08/21/2013 3:53 AM EDT) Troponin-T 1.06(H) <=0.03 ng/mL CERNER MILLENNIUM Comment: 0.03 ng/mL: Represents the 99th percentile upper reference limit for normals. >0.03 ng/mL: Elevated cardiac troponin T level indicative of myocardial damage. Diagnosis of acute, evolving or recent [place] requires a typical rise and gradual fall [...] consensus document of the Joint Society of Cardiology/[place] College [employer] Cardiology Committee for the redefinition of myocardial infarction. Journal of the [place] College of [employer]iology 2000; 36: 959-969] Creatine Kinase 777(H) 0 - 200 unit/L [facility] TechnologyMETHOD[facility] Blood specimen (specimen) 08/21/2013 3:53 AM EDT 08/21/2013 4:00 AM EDT Narrative Resulting Agency Comment Spec In Lab Eben Ruiz MD CHEMISTRY ORDERABLES [facility] * (ABNORMAL) BMP w/fasting Glucose (08/21/2013 3:53 AM EDT) Glucose Fasting 230(H) 65 - 99 mg/dL [facility] MILLENNIUM Comment: ?Fasting* Glucose Interpretive Criteria Normal [...] of Diabetes Mellitus, Position Statement from the [place] Diabetes Association. ??Diabetes Care, Volume 33, Supplement 1, Nov 2009 Blood Urea Nitrogen 15 10 - 20 mg/dL CERNER MILLENNIUM Creatinine 0.67(L) 0.80 - 1.50 mg/dL CERNER MILLENNIUM Comment: Please note that the pediatric reference intervals supplied above were not validated at [facility]. Results from pediatric patients should be interpreted [...] Ruiz MD CHEMISTRY ORDERABLES ARIAN NELSON * (ABNORMAL) CBC (with Diff) (08/21/2013 3:53 [...] Lab Asad Biggs MD HEMATOLOGY ORDERABLE S ARIAN NELSON * Prothrombin Time (08/21/2013 3:53 AM EDT) [facility] Signature Prothrombin Time 13.5 12.0 - 15.0 sec [facility] ROBYENNIUM Comment: [facility] Transfusion Committee Guidelines: INR less than 2.0, PTT less than OR equal to 43.5 seconds, or Fibrinogen greater than or equal to 100 mg/dl indicate adequate procoagulant activity for hemostasis in patients without underlying bleeding disorders. International Normalization Ratio 1.0 0.9 - 1.1 [facility] CAENNIUM Blood specimen (specimen) 08/21/2013 3:53 AM EDT 08/21/2013 4:00 AM EDT Narrative Resulting Agency Comment Spec In Lab Asad Biggs MD HEMATOLOGY ORDERABLE S ARIAN NELSON * (ABNORMAL) Triglyceride (08/21/2013 3:53 AM EDT) Triglyceride 733(H) <=149 mg/dL [facility] Comment: Reference Range: Normal triglycerides: ??<150 mg/dL Borderline high: ??150-199 mg/dL High: ??200-499 mg/dL Very high: ??>hs=278 mg/dL ELISEO 2001; 285(19):3267-5403 Blood specimen (specimen) 08/21/2013 3:53 AM EDT 08/21/2013 4:00 AM EDT Narrative Resulting Agency Comment Spec In Lab Eben Ruiz MD CHEMISTRY ORDERABLES [facility] * (ABNORMAL) HDL/Cholesterol Profile (08/21/2013 3:53 AM EDT) Cholesterol, Total 218(H) <=199 mg/dL [facility] Comment: Recommendations of the NCEP Adult Treatment Panel for the following risk cutoff thresholds for the [place] population: Desirable: <200 mg/dL Borderline High: 200-239 mg/dL High: > or = 240 mg/dL HDL Cholesterol 24(L) >=40 mg/dL [facility] Comment: Reference range: ??Low HDL: ?? < 40 mg/dL ??Normal: ?40-60 mg/dL ??Desirable: > 60 mg/dL ELISEO 2001; 285(19):2858-7056 Cholesterol/HDL Ratio 9.1 ratio [facility] Comment: A Cholesterol to HDL ratio below 4:1 is desirable. ??Studies suggest that increased CAD risk occurs at ratios above 5 for females and above 6 for men. ? [place] Heart Association ??(http://www.americanheart.org) ? Jazmine Int Med, 1994; 121:641 ? AM J Med, 1998; 105(1A):48S Blood specimen (specimen) 08/21/2013 3:53 AM EDT 08/21/2013 4:00 AM EDT Narrative Resulting Agency Comment Spec In Lab Digant Otilia V, MD CHEMISTRY ORDERABLES Performing Organization Address [facility] de Phone Number [facility] * (ABNORMAL) LDL Cholesterol, Direct (08/21/2013 3:53 AM EDT) [facility] LDL Cholesterol, Direct 107(H) <=99 mg/dL [facility] Comment: The National Cholesterol Education Program (NCEP) has set the following guidelines for LDL Cholesterol: Reference range: ?? Optimal: ?<100 mg/dL ?? Near Optimal/Above Optimal: ?? 100-129 mg/dL ?? Borderline high: ?130-159 mg/dL ?? High: ? 160-189 mg/dL ?? Very high: ?>oi=201 mg/dL ELISEO 2001: 285(11):6746-3647 Blood specimen (specimen) 08/21/2013 3:53 AM EDT 08/21/2013 4:00 AM EDT Narrative Resulting Agency Comment Spec In Lab Eben Ruiz MD CHEMISTRY ORDERABLES Performing Organization Address [facility] de Phone Number [facility] * (ABNORMAL) Hemoglobin A1c (08/21/2013 3:53 AM EDT) [facility] Hemoglobin A1c 10.0(H) 4.3 - 6.1 % [facility] Comment: The [place] Diabetes Association (ADA) has stated that HbA1c [...] 1:S11-S66. Estimated Average Glucose 240 mg/dL [facility] Comment: eAG equivalents for HbA1c percentages: HbA1c(%) [...] into estimated average glucose values. ??Diabetes Care 2008:31(8):9679-9058. Blood specimen (specimen) 08/21/2013 3:53 AM EDT 08/21/2013 4:00 AM EDT Narrative Resulting Agency Comment Spec In Lab Eben Ruiz MD CHEMISTRY ORDERABLES [facility] * EKG 12 Lead (08/21/2013 2:54 AM EDT) Ventricular rate 68 BPM MUSE SYSTEM Atrial Rate 68 BPM MUSE SYSTEM P-R Interval 188 ms MUSE SYSTEM QRS Duration 104 ms MUSE SYSTEM Q-T Interval 406 ms MUSE SYSTEM QTC Calculated (Bezet) 431 ms MUSE SYSTEM Calculated P Dunning 4 degrees MUSE SYSTEM Calculated R Dunning 28 degrees MUSE SYSTEM Calculated T Dunning 21 degrees MUSE SYSTEM INTERPRETATION Normal sinus rhythm Nonspecific T wave abnormality Abnormal ECG When compared with ECG of 20-AUG-2013 15:19, No significant change was found Confirmed by Pablito Torres MD ([id number]) on 08/21/2013 12:56:35 PM MUSE SYSTEM 08/21/2013 2:54 AM EDT 08/21/2013 12:56 PM EDT Eben Ruiz MD ECG ORDERABLES Performing Organization Address [facility] Co de Phone Number MUSE SYSTEM * (ABNORMAL) POCT Glucose (08/21/2013 1:59 AM EDT) Glucose, POC 262(H) 60 - 199 mg/dL [facility] Comment: Supplemental ranges: <110 mg/dL before meals <200 mg/dL all other times of the day Blood specimen (specimen) 08/21/2013 1:59 AM EDT 08/21/2013 1:59 AM EDT Asad Biggs MD POINT OF CARE TEST O RDERABLES Performing Organization Address [facility] Phone Number [facility] * (ABNORMAL) POCT Glucose (08/20/2013 11:54 PM EDT) Glucose, POC 290(H) 60 - 199 mg/dL [facility] Comment: Supplemental ranges: <110 mg/dL before meals <200 mg/dL all other times of the day Blood specimen (specimen) 08/20/2013 11:54 PM EDT 08/20/2013 11:54 PM EDT Asad Biggs MD POINT OF CARE TEST O RDERABLES Performing Organization Address [facility] Co de Phone Number [facility] * APTT (08/20/2013 11:51 PM EDT) Partial Thromboplastin Time 35 25 - 35 sec ARIAN NELSON Comment: Recommended therapeutic PTT range for full dose unfractionated heparin is 80-114 seconds. Blood specimen (specimen) 08/20/2013 11:51 PM EDT 08/21/2013 12:01 AM EDT Narrative Resulting Agency Comment Spec In Lab Asad Biggs MD HEMATOLOGY ORDERABLE S Performing Organization Address [facility] Co de Phone Number ARIAN [employer] * (ABNORMAL) Cardiac Enzymes (08/20/2013 9:40 PM EDT) Troponin-T 0.74(H) <=0.03 ng/mL ARIAN NELSON Comment: 0.03 ng/mL: Represents the 99th percentile upper reference limit for normals. >0.03 ng/mL: Elevated cardiac troponin T level indicative of myocardial damage. Diagnosis of acute, evolving or recent [place] requires a typical rise and gradual fall [...] consensus document of the Joint Society of Cardiology/[place] College [employer] Cardiology Committee for the redefinition of myocardial infarction. Journal of the [place] College of Cardiology 2000; 36: 959-969] Creatine Kinase 828(H) 0 - 200 unit/L JILLIANBRIAN CERDAKEENA Blood specimen (specimen) 08/20/2013 9:40 PM EDT 08/20/2013 9:47 PM EDT Narrative Resulting Agency Comment Spec In Lab Eben Ruiz MD CHEMISTRY ORDERABLES Performing Organization Address [facility] Co de Phone Number ARIAN [employer] * XR chest routine PA & lateral [...] Glucose, POC 200(H) 60 - 199 mg/dL [facility] Comment: Supplemental ranges: <110 mg/dL before meals <200 mg/dL all other times of the day Blood specimen (specimen) 08/20/2013 8:26 PM EDT 08/20/2013 8:26 PM EDT Asad Biggs MD POINT OF CARE TEST O RDERABLES [facility] * (ABNORMAL) POCT Glucose (08/20/2013 5:03 PM EDT) Glucose, POC 230(H) 60 - 199 mg/dL [facility] Comment: Supplemental ranges: <110 mg/dL before meals <200 mg/dL all other times of the day Blood specimen (specimen) 08/20/2013 5:03 PM EDT 08/20/2013 5:03 PM EDT Asad Biggs MD POINT OF CARE TEST O RDERABLES Performing Organization Address City/[facility]/ZIP Co de Phone Number CERBRIAN CAENNIUM * EKG 12 Lead (08/20/2013 3:19 PM EDT) Ventricular rate 68 BPM MUSE SYSTEM Atrial Rate 68 BPM MUSE SYSTEM P-R Interval 182 ms MUSE SYSTEM QRS Duration 100 ms MUSE SYSTEM Q-T Interval 410 ms MUSE SYSTEM QTC Calculated (Bezet) 435 ms MUSE SYSTEM Calculated P Dunning 3 degrees MUSE SYSTEM Calculated R Dunning 19 degrees MUSE SYSTEM Calculated T Dunning 35 degrees MUSE SYSTEM INTERPRETATION Normal sinus rhythm Cannot rule out Inferior infarct (cited on or before 30-DEC-2011) When compared with ECG of 09-FEB-2012 10:55, Vent. rate has decreased BY ??34 BPM T wave inversion no longer evident in Anterior leads Confirmed by Brian DE [facility] ([id number]) on 08/20/2013 5:30:42 PM MUSE SYSTEM 08/20/2013 3:19 PM EDT 08/20/2013 5:30 PM EDT Asad Biggs MD ECG ORDERABLES Performing Organization Address City/[facility]/ZIP Co de Phone Number MUSE SYSTEM * (ABNORMAL) Differential, Automated (08/20/2013 [...] Abs 0.2 0.0 - 0.5 x10(3)/mc L [facility] MILLENNIUM Basophil % 0.3 0.0 - 2.0 % CERNER MILLENNIUM Baso Absolute 0.0 0.0 - 0.2 x10(3)/mc L [facility] MILLENNIUM Immature Gran % 0.30 0.00 - 0.66 % [facility] Comment: Immature granulocytes(IG's)percentage and absolute count will include metamyelocytes, myelocytes, and promyelocytes. Blood smears from CBCs yielding IG's will be scanned manually for concordance. If this scan disagrees with the automated IG or if promyelocytes are noted, a manual differential will be performed. Immature Gran Absolute 0.04 0.00 - 0.05 x10(3)/mc L [facility] Blood specimen (specimen) 08/20/2013 1:45 PM EDT 08/20/2013 1:45 PM EDT Asad Biggs MD HEMATOLOGY ORDERABLE S Performing Organization Address [facility] Co de Phone Number [facility] * Magnesium (08/20/2013 1:45 PM EDT) Pathologist [facility] Magnesium 0.74 0.69 - 1.07 mmol/L [facility] Blood specimen (specimen) 08/20/2013 1:45 PM EDT 08/20/2013 1:54 PM EDT Narrative Resulting Agency Comment Spec In Lab Asad Biggs MD CHEMISTRY ORDERABLES Performing Organization Address [facility] Co de Phone Number [facility] * (ABNORMAL) Cardiac Enzymes (08/20/2013 1:45 PM EDT) Troponin-T 0.34(H) <=0.03 ng/mL [facility] Comment: 0.03 ng/mL: Represents the 99th percentile upper reference limit for normals. >0.03 ng/mL: Elevated cardiac troponin T level indicative of myocardial damage. Diagnosis of acute, evolving or recent [place] requires a typical rise and gradual fall [...] consensus document of the Joint Society of Cardiology/[place] College [employer] Cardiology Committee for the redefinition of myocardial infarction. Journal of the [place] College of Cardiology 2000; 36: 959-969] Creatine Kinase 505(H) 0 - 200 unit/L CERNER MILLENNIUM Blood specimen (specimen) 08/20/2013 1:45 PM EDT 08/20/2013 1:54 PM EDT Narrative Resulting Agency Comment Spec In Lab Asad Biggs MD CHEMISTRY ORDERABLES [facility] [employer]YARYIUM * (ABNORMAL) Basic Metabolic Panel (non-fasting) (08/20/2013 1:45 PM EDT) [facility] Glucose 246(H) 60 - 199 mg/dL CERNER MILLENNIUM Comment:Diabetes: >=200 mg/d L plus symptoms Blood Urea Nitrogen 15 10 - 20 mg/dL CERNER MILLENNIUM Creatinine 0.68(L) 0.80 - 1.50 mg/dL CERNER MILLENNIUM Comment: Please note that the pediatric reference intervals supplied above were not validated at [facility] [place]. Results from pediatric patients should be interpreted [...] Biggs MD CHEMISTRY ORDERABLES Performing Organization Address [facility] Co de Phone Number ARIAN CERDAIUM * (ABNORMAL) APTT (08/20/2013 1:45 PM EDT) Partial Thromboplastin Time 40(H) 25 - 35 sec CERBRIAN MILLENNIUM Comment: Recommended therapeutic PTT range for full dose unfractionated heparin is 80-114 seconds. Blood specimen (specimen) 08/20/2013 1:45 PM EDT 08/20/2013 1:45 PM EDT Narrative Resulting Agency Comment Spec In Lab Asad Biggs MD HEMATOLOGY ORDERABLE S Performing Organization Address [facility] Co de Phone Number ARIAN ROBYYARYIUM * Prothrombin Time (08/20/2013 1:45 PM EDT) Prothrombin Time 13.7 12.0 - 15.0 sec CERRBIAN MILLENNIUM Comment: [facility] Transfusion Committee Guidelines: INR less than 2.0, PTT less than OR equal to 43.5 seconds, or Fibrinogen greater than or equal to 100 mg/dl indicate adequate procoagulant activity for hemostasis in patients without underlying bleeding disorders. International Normalization Ratio 1.0 0.9 - 1.1 CERBRIAN MILLENNIUM Blood specimen (specimen) 08/20/2013 1:45 PM EDT 08/20/2013 1:45 PM EDT Narrative Resulting Agency Comment Spec In Lab Asad Biggs MD HEMATOLOGY ORDERABLE S Performing Organization Address [facility] Co de Phone Number [facility] * D-Dimer, Quantitative (08/20/2013 1:45 PM EDT) Pathologist [facility] D-Dimer <200 0 - 500 FEU ng/ml [facility] MILLVETER[facility] PHOENIXIUM Comment: The D-Dimer assay is used to [...] MD HEMATOLOGY ORDERABLE S Performing Organization Address [facility] de Phone Number [facility] * (ABNORMAL) CBC (with Diff) (08/20/2013 1:45 PM EDT) Pathologist [facility] White Blood Cell 12.2(H) 4.0 - 10.0 [...] of variation 12.3 10.9 - 14.4 % ARIAN CERDAIUM Mean Platelet Volume 11.4 9.0 - 12.0 fL ARIAN CERDAIUM Blood specimen (specimen) 08/20/2013 1:45 PM EDT 08/20/2013 1:45 PM EDT Narrative Resulting Agency Comment Spec In Lab Asad Biggs MD HEMATOLOGY ORDERABLE S Performing Organization Address [facility] Co de Phone Number ARIAN CERDAIUM * Lavender Tube HOLD (08/20/2013 1:45 PM EDT) Lavender Hold Sample in lab. ARIAN CERDAIUM Blood specimen (specimen) 08/20/2013 1:45 PM EDT 08/20/2013 1:45 PM EDT Asad Biggs MD HEMATOLOGY ORDERABLE S Performing Organization Address [facility] de Phone Number ARIAN CERDAIUM * Blue Tube HOLD (08/20/2013 1:45 PM EDT) Blue Hold Sample in lab. ARIAN CERDAIUM Blood specimen (specimen) 08/20/2013 1:45 PM EDT 08/20/2013 1:45 PM EDT Asad Biggs MD HEMATOLOGY ORDERABLE S Performing Organization Address [facility] de Phone Number ARIAN CERDAIUM * Green Tube HOLD (08/20/2013 1:45 PM EDT) Green Hold Sample in lab. ARIAN CERDAIUM Blood specimen (specimen) 08/20/2013 1:45 PM EDT 08/20/2013 1:45 PM EDT Asad Biggs MD CHEMISTRY ORDERABLES Performing Organization Address City/[facility] Co de Phone Number ARIAN CERDAIUM * (ABNORMAL) POCT Glucose (08/20/2013 1:23 PM EDT) Glucose, POC 243(H) 60 - 199 mg/dL [facility]BRIAN [facility] Comment: Supplemental ranges: <110 mg/dL before meals <200 mg/dL all other times of the day Blood specimen (specimen) 08/20/2013 1:23 PM EDT 08/20/2013 1:23 PM EDT Asad Biggs MD POINT OF CARE TEST O RDERABLES [facility] documented in this encounter Visit Diagnoses Diagnosis NSTEMI (non-ST elevated myocardial infarction)- Primary Acute myocardial infarction, subendocardial infarction, episode of care unspecified Chest pain Chest pain, unspecified Coronary artery disease Coronary atherosclerosis of unspecified type of vessel, [place] or graft ACS (acute coronary syndrome) Intermediate coronary syndrome SOB (shortness of breath) Shortness of breath NSTEMI (non-ST elevated myocardial infarction) Acute myocardial infarction, subendocardial infarction, episode of care unspecified HTN (hypertension) Unspecified essential hypertension Hyperlipidemia Other and unspecified hyperlipidemia 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 , Routine 183 (Given - Provider: Sana Bella RN)2021 (Given - Provider: Reny Kent RN) 0838 (Given - Provider: Lola Tipton RN - Comment: pt was having echo)1203 (Given - Provider: Lola Tipton RN)1627 (Not Given - Provider: Lola Tipton RN [...] RN) 0858 (Given - Provider: Lola Tipton RN)2036 (Given - Provider: Allen Tavarez RN) 0858 (Given - Provider: Roxanna Mcallister) pantoprazole (PROTONIX) tablet 40 mg 40 mg, Oral, DAILY, First dose on Wed08/21/13 at 1815, Until Discontinued, Restricted to patients on clopidpgrel (PLAVIX) who require a proton pump inhibitor 1917 (Given - Provider: Lola Tipton RN) 0858 (Given - Provider: Roxanna Mcallister) potassium chloride (K-DUR/KLOR-CON) extended release tablet 40 mEq (COMPLETED) 40 mEq, Oral, ONCE, 1 dose, On Wed08/22/13 at 0745, STAT 0858 (Given - Provid er: Roxanna Mcallister) sertraline (ZOLOFT) tablet 50 mg (CANCELED) 50 mg, Oral, DAILY, First dose on 08/20/13 at 1700, Until Discontinued, Routine 1837 (Given - Provider: Sana Bella RN) 0900 (Given - Provider: Lola Tipton RN) 0859 (Given - Provider: Roxanna Mcallister) simvastatin (ZOCOR) tablet 20 mg (CANCELED) 20 mg, Oral, EVERY EVENING, First dose on 08/20/13 at 1700, Until Discontinued 1837 (Given - Provider: Sana Bella RN) 1711 [...] RN) 0345 (Not Given - Provider: Allen Tavarez, RN - Reason: Contraindicated - Comment: previously flushed) sodium chloride 0.9 % flush 5 mL (CANCELED) 5 mL, Intravenous, EVERY 12 HOURS, First dose on Wed08/21/13 at 0200, Until Discontinued, Cath (Day of Procedure), Routine 0144 (Given - Provider: Reny Kent RN)1400 (Not Given - Provider: Lola Tipton RN - Reason: Patient not available) 0200 (Given - Provider: Allen Tavarez, DAVID)1400 (Due) sodium chloride 0.9 % flush 5 [...] than 145 sec X 2 - call housekeeper nanny See [employer] dosing guidance for aPTT values [...] Kent RN)1152 (New Bag - Provider: Lola Tipton, DAVID)1319 (Stopped - Provider: Evy Sánchez RN) sodium chloride 0.9% infusion (CANCELED) 1,000 mL, at 100 mL/hr, Intravenous, CONTINUOUS, Starting on Wed08/20/13 at 1545, Until Wed08/21/13 at 1441 1556 (New Bag - Provider: Sana Bella, DAVID)2155 (Stopped - Provider: Reny Kent RN - Comment: stop per Dr. Golden) 1000 (Canceled Entry - Provider: Lola Tipton, DAVID)1050 (Canceled Entry - Provider: Lola Tipton RN) sodium chloride 0.9% infusion (CANCELED) 100 mL/hr, Intravenous, CONTINUOUS, Starting on Wed08/21/13 at 0200, Until Wed08/21/13 at 1742, Cath (Day of Procedure) 0155 (New Bag - Provider: Reny Kent RN)0906 (New Bag - Provider: Lola Tipton, RN)1050 (Rate/Dose Change - Provider: Lola Tipton [...] in sodium chloride 0.9% 50 mL infusion (EIGHT SECTION BLOWER) (CANCELED) CONTINUOUS PRN, Starting on Wed08/21/13 at [...] (Intra-Procedure), Routine 1347 (Given - Provider: Angel Finley, DAVID)1412 (Given - Provider: Fredrick Villegas RN) flu [...] Routine documented in this encounter Care Teams Eight Section Blower Relationship Specialty Start Date End Date Patric Al MD PCP - General 12/29/11 02/26/19 documented as of this encounter
--- OUTSIDE RECORDS SUMMARY | 2024-07-25 15:03 | XMS_ITS | Encounter Summary ---
Author Organization [facility] Address [facility] [place] [address] Care Team Providers Care Laboratory Equipment Cleaner Name Role Phone Patric Al MD Primary Care Provider [phone] Encounter Details Date Type Department Care Team (Late st Contact Info) Description 08/21/2013 11:35 AM EDT - 08/21/2013 12:35 PM EDT [place] [address] Sarthak Kahn MD [facility] [place] [address] CARDIAC CATHETERIZATION Social History Tobacco Use Types [...] appointments: -During 8am-5pm Wednesday through Wednesday call [phone] to speak with a nurse in the cardiology clinic -All other times call [phone] and ask to speak to the band saw runner tower control operator. Return to work/ usual actvities: 1 week, as tolerated. No squatting or lifting more than 10 pounds until then. Driving: No driving for 48 hours after catheterization. Follow up Appointments: PCP: PATRIC AL MD at [phone] to see you on WednesdayAugust 28 at 10:50 am. Cnmt, Dr. Oseguera, to see you on 09/20/14 at noon. Please call [phone] with questions. Diabetes medication instructions You should [...] * CHEST PAIN (ANGINA): AFTER YOUR VISIT (CROATIAN) * CORONARY ARTERY DISEASE: AFTER YOUR VISIT (CROATIAN) * DIABETES DIET GUIDELINES: AFTER YOUR VISIT (CROATIAN) * HEART ATTACK: AFTER YOUR VISIT (CROATIAN) * HEMOGLOBIN A1C: ABOUT THIS TEST (CROATIAN) * HOME BLOOD GLUCOSE TEST: ABOUT THIS TEST (CROATIAN) * CARDIAC CATHETERIZATION: AFTER YOUR VISIT (CROATIAN) documented in this encounter Medications at Time [...] Patient is a 38 y/o man from [place], [place]. He is disabled and on Social [...] Office of Care Management (OCM) / Clinical Software Security Consultant (CRC)/ Initial Assessment Discussed patient with Provider [...] to drive with medication. 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 CURRENT FUNCTIONAL STATUS: same SOCIAL / FAMILY [...] D for prescriptions. Uses [facility] CURRENT HOME/COMMUNITY SERVICES/EQUIPMENT: None PRODUCT SAFETY MANAGER REFERRAL: Notified PRODUCT SAFETY MANAGERAlexandru regarding pt's [place] Medicaid. Pt's [place] Medicaid is not active per Alexandru SALCEDO. PRIMARY CARE PHYSICIAN: PATRIC AL MD ALEJANDRA [address] [facility] [id number] POTENTIAL DISCHARGE NEEDS: None identified at this [...] while hospitalized. Awaiting Endocrine consult. Calista Jaimes SAP BPC DEVELOPER CRC/Jaye Dennison MSN BSN RN CRC Office of Care Managment Pager [phone] . * Padma Marquez I, RD - 08/22/2013 11:42 AM EDT Nutrition Services Education Note Diet Rx: [facility]/Low Fat Patient Active Problem List Diagnosis [...] Weight loss options discussed Phase II Referral: [facility] Activity Summary: By discharge, patient will [...] up with PCP or Dr Bird in [place] I reviewed the patient with and agree with the recommendations and plans * Sarthak Pollard MD - 08/22/2013 7:18 AM EDT Inpatient Cardiology Progress Note Patient Name: Lux Dixon Jr. Service: EXECUTIVE VICE PRESIDENT / PA Responsible Attending: Dr Pollard Reason [...] 2v CABG and recurrent angina, +NSTEMI pending [facility]. Stable. Plan: 1. CAD/ CABGx2, stable [...] discussed with Dr. Pollard. JUSTIN OROSCO Pager [phone] 08/22/2013 Cardiology Attending Note: I interviewed and [...] as oral agents. He lives in the [facility]. We will set him up to see Dr. Reji Lucia or one of his colleagues. Time spent at bedside and coordinating care: 35 mins. Sarthak Pollard MD, MS Staff Cnmt Pager [phone] * Latonya Sanders - 08/21/2013 10:28 PM [...] pulses are palpable. Latonya Sanders MD # [id number] * Sarthak Pollard MD - 08/21/2013 8:36 AM EDT Inpatient Cardiology Progress Note Patient Name: Lux Dixon Jr. 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 Coronary artery disease Priority: High NSTEMI 12-29-2011 Cath - LAD, PDA and Distal Circ Disease CABG 01-04-2012 (MARTINEZ-LAD, SVG-PDA) ??? TR (tricuspid regurgitation), mild Mild [place] ??? CAD (coronary artery disease) 2009 , [...] mcg/min (08/21/13215) ??? heparin 2,150 Units/hr (08/21/13 9191) ??? sodium chloride 0.9% Stopped (08/20/13 3110) Physical Exam: Vital Signs: Last value Range [...] 2v CABG and recurrent angina, +NSTEMI pending [facility]. Plan: 1. CAD/ CABGx2, [facility] today Needs risk factors addressed Has [...] to his RPDA and occlusion of his [place] RCA since that time of his last [...] 35 mins. Sarthak Pollard MD, MS Staff Cnmt Pager [phone] * Reny Kent RN - 08/20/2013 10:08 [...] between 00 and 0200. 0310) Patient alerted wait staff that he is experiencing 3/10 left arm [...] Name: Lux Dixon Jr. MRN No - [id number] Date of - 1975 Age - 38 [...] CABG MARTINEZ-LAD, SVG-PDA and Obesity transferred from [facility] because of CP which started yesterday [...] relieved after 1 shot of morphine at [place]. His work showed NSR ECG w/o ST changes, elevated 2nd set of trop and negative D-dimer, wbc of 15K, normal electrolytes, glucose of 546, normal BUN/cr. He was kiccp205 of plavix and started on heparin gtt. He had some CP on arrival to [facility] which was . ECG was normal. Dr. [...] FOR CABG performed by INNA TOVAR at [facility] MA[facility] OR ??? Cabg, artery-vein, single 01/04/2012 @CABG, VENOUS & ARTERIAL GRAFT;SINGLE VEIN GRAFT performed by INNA TOVAR at [facility] MA[facility] OR Family History: Family History [...] CABG MARTINEZ-LAD, SVG-PDA in 2011 transferred from [place] because of CP which is different than his previous episode of CP. This time pain started in arm and radiating to chest and is also mild 1-3 /10. He also drove for 6 hrs yesterday. He had positive tropsat [place] although his ECG was negative. The pain relieved after leaning forward. I have above mentioned DD and also his d-dimer at [place] was negative so low prob of PE. I would admit for ACS and cont heparin. i would also keep him NPO and starting on nitro drip per Dr. Horvath's rec. Admit to telemetry Cycle bio-markers Repeat EKG Continue aspirin, simvastatin, metoprolol, plavix 300 mg x1 (given at [place]) and heparin Check fasting lipid profile and [...] was reviewed and signed. DM - at [place] his A1c was 6 Holding metformin and [...] clinical decision making Provider: Eben Bingham Pager: [phone] documented in this encounter Procedure Notes * Provider, Scanning - 08/24/2013 11:52 AM EDTAssociated Order(s): SCAN DOC: BATTER MIXER HELPER * Provider, Scanning - 08/21/2013 3:30 PM [...] management and to provide a reviewof his skilled nursing diabetes plan. Diabetes History: Lux Dixon Jr. [...] 01-04-2012 (MARTINEZ-LAD, SVG-PDA) Cardiac Cath 08/21/13: [patent MARTINZE to LAD, occlusion of SVG to RPDA and occlusion of [place] RCA. LVEDP 21. PCI of mid and [...] up with PCP or Dr Bird in [place] ??? Obesity Weight is 130.5 Kg [...] SVG-PDA in 2011 and obesity transferred from [facility] for chest pain which started the [...] or vomiting. Hospital Course: On admission to [facility], he had CP on arrival to [facility] which was 1-3/10. ECG was normal. He [...] occlusion of SVG to RPDA, occlusion of [place] RCA. The SVG to RCA was not [...] up with PCP or Dr Bird in [place] Smoking cessation was advised & discussed. [...] appointments: -During 8am-5pm Wednesday through Wednesday call [phone] to speak with a nurse in the cardiology clinic -All other times call [phone] and ask to speak to the band saw runner tower control operator. Return to work/ usual actvities: 1 week, as tolerated. No squatting or lifting more than 10 pounds until then. Driving: No driving for 48 hours after catheterization. Follow up Appointments: PCP: PATRIC AL MD at [phone] to see you on WednesdayAugust 28 at 10:50 am. Cnmt, Dr. Oseguera, to see you on 09/20/14 at noon. Please call [phone] with questions. Diabetes medication instructions You should [...] Complete By Expires Referral to Cardiac Rehab [[id number] Custom] Process Instructions: If no progress note charted, please enter Clinical details in comments. Scheduling Instructions: Comments: Pt will participate in cardiac rehab @ [facility] Questions: Responses: Reason for referral NSTEMI Provider Contact Information: JALEN Billingsley NP Dr Bruce Andrus [phone] Discharge References/Attachments: Discharge References/Attachments CHEST PAIN (ANGINA): AFTER YOUR VISIT (CROATIAN) CORONARY ARTERY DISEASE: AFTER YOUR VISIT (CROATIAN) DIABETES DIET GUIDELINES: AFTER YOUR VISIT (CROATIAN) HEART ATTACK: AFTER YOUR VISIT (CROATIAN) HEMOGLOBIN A1C: ABOUT THIS TEST (CROATIAN) HOME BLOOD GLUCOSE TEST: ABOUT THIS TEST (CROATIAN) Signed: JUSTIN OROSCO Pager [phone] DATE: 08/22/2013 * Miscellaneous - Provider, Scanning - 08/20/2013 2:59 PM EDT * Miscellaneous - Provider, Scanning - 08/20/2013 2:58 PM EDT documented in this encounter Plan of Treatment Upcoming Encounters Date Type Department Care Team (Latest Contact Info) Description 08/01/2024 7:30 AM EDT Hospital Encounter [place] [address] Lisette Maldonado MD [facility] [place] [address] 08/01/2024 7:30 AM EDT - 08/01/2024 1:43 PM EDT Surgery [place] [address] Lisette Maldonado MD [facility] [place] [address] @BYPASS GRAFT, FEM-ANT TIBIAL, -POST TIBIAL, -PERONEAL, [...] Procedure Name Priority Date/Time Associated Diagnosis Comments BATTER MIXER HELPER SCAN 08/24/2013 11:52 AM EDT POCT GLUCOSE Routine 08/22/2013 11:52 AM EDT POCT GLUCOSE Routine 08/22/2013 7:47 AM EDT EKG 12-LEAD Routine 08/22/2013 7:45 AM EDT Chest pain BMP W/FASTING GLUCOSE Routine 08/22/2013 4:03 AM EDT DIFFERENTIAL, AUTOMATED Routine 08/22/20 4:03 AM EDT CARDIAC ENZYMES ([facility]/CGP) Routine 08/22/2013 4:03 AM EDT CBC (WITH DIFF) Routine 08/22/2013 4:03 AM EDT POCT GLUCOSE Routine 08/21/2013 10:43 PM EDT POCT GLUCOSE Routine 08/21/2013 8:28 PM EDT CARDIAC ENZYMES ([facility]/CGP) STAT 08/21/2013 6:36 PM EDT POCT [...] Routine 08/21/20 3:53 AM EDT CARDIAC ENZYMES ([facility]/CG[facility]) Routine 08/21/2013 3:53 AM EDT APTT [...] STAT 08/20/2013 11:51 PM EDT CARDIAC ENZYMES ([facility]) STAT 08/20/2013 9:40 PM EDT XR [...] 08/20/2013 1: 45 PM EDT CARDIAC ENZYMES ([facility]) Routine 08/20/2013 1:45 PM EDT APTT Routine 08/20/2013 1:45 PM EDT PROTHROMBIN TIME Routine 08/20/2013 1:45 PM EDT CBC (WITH DIFF) Routine 08/20/2013 1:45 PM EDT MAGNESIUM Routine 08/20/2013 1:45 PM EDT BASIC METABOLIC PANEL Routine 08/20/2013 1:45 PM EDT POCT GLUCOSE Routine 08/20/2013 1:23 PM EDT documented in this encounter Results * SCAN DOC: BATTER MIXER HELPER (08/24/2013 11:52 AM EDT) Anatomical Region Laterality Modality Other Narrative 08/24/2013 12:55 PM EDT Procedure Note Provider, Scanning - 08/24/2013 11:52 AM EDT Scanning Provider MEDIA MGR SCAN EXT O RDR/RSLT * (ABNORMAL) POCT Glucose (08/22/2013 11:52 AM EDT) Glucose, POC 225(H) 60 - 199 mg/dL ARIAN NELSON Comment: Supplemental ranges: <110 mg/dL before meals <200 mg/dL all other times of the day Blood specimen (specimen) 08/22/2013 11:52 AM EDT 08/22/2013 11:52 AM EDT Asad Biggs MD POINT OF CARE TEST O RDERABLES ARIAN NELSON * POCT Glucose (08/22/2013 7:47 AM EDT) Glucose, POC 199 60 - 199 mg/dL ARIAN NELSON Comment: Supplemental ranges: <110 mg/dL before meals <200 mg/dL all other times of the day Blood specimen (specimen) 08/22/2013 7:47 AM EDT 08/22/2013 7:47 AM EDT Asad Biggs MD POINT OF CARE TEST O RDERABLES CERBRIAN CAENNIUM * EKG 12 Lead (08/22/2013 7:45 AM EDT) Ventricular rate 79 BPM MUSE SYSTEM Atrial Rate 79 BPM MUSE SYSTEM P-R Interval 182 ms MUSE SYSTEM QRS Duration 108 ms MUSE SYSTEM Q-T Interval 406 ms MUSE SYSTEM QTC Calculated (Bezet) 465 ms MUSE SYSTEM Calculated P [place] 57 degrees MUSE SYSTEM Calculated R [place] 23 degrees MUSE SYSTEM Calculated T [place] 2 degrees MUSE SYSTEM INTERPRETATION Normal sinus rhythm Cannot rule out Inferior infarct , age undetermined When compared with ECG of 21-AUG-2013 14:53, Borderline criteria for Inferior infarct are now present Confirmed by Brian DE Pablito ([id number]) on 08/23/2013 10:09:45 AM MUSE SYSTEM 08/22/2013 7:45 AM EDT 08/23/2013 10:09 AM EDT Tim Uribe MD ECG ORDERABLES Performing Organization Address [facility]/ZIP Co de Phone Number MUSE SYSTEM * [...] Absolute 0.0 0.0 - 0.2 x10(3)/mc L [facility] Immature Gran % 0.60 0.00 - 0.66 % [facility] MILLENNIUM Comment: Immature granulocytes(IG's)percentage and absolute count will include metamyelocytes, myelocytes, and promyelocytes. Blood smears from CBCs yielding IG's will be scanned manually for concordance. If this scan disagrees with the automated IG or if promyelocytes are noted, a manual differential will be performed. Immature Gran Absolute 0.06(H) 0.00 - 0.05 x10(3)/mc L [facility] MILLENNIUM Blood specimen (specimen) 08/22/2013 4:03 AM EDT 08/22/2013 4:42 AM EDT Tim Uribe MD HEMATOLOGY ORDERAB LES [facility] * (ABNORMAL) BMP w/fasting Glucose (08/22/2013 4:03 AM EDT) Glucose Fasting 170(H) 65 - 99 mg/dL [facility] Comment: ?Fasting* Glucose Interpretive Criteria Normal ?65-99 [...] of Diabetes Mellitus, Position Statement from the [place] Diabetes Association. ??Diabetes Care, Volume 33, Supplement 1, Nov 2009 Blood Urea Nitrogen 6(L) 10 - 20 mg/dL [facility] Creatinine 0.62(L) 0.80 - 1.50 mg/dL [facility] Comment: Please note that the pediatric reference intervals supplied above were not validated at [facility]. Results from pediatric patients should be [...] Lab Tim Uribe MD CHEMISTRY ORDERABL ES CERBRIAN NELSON * (ABNORMAL) Cardiac Enzymes (08/22/2013 4:03 AM EDT) Troponin-T 0.95(H) <=0.03 ng/mL CERNER MILLENNIUM Comment: 0.03 ng/mL: Represents the 99th percentile upper reference limit for normals. >0.03 ng/mL: Elevated cardiac troponin T level indicative of myocardial damage. Diagnosis of acute, evolving or recent [place] requires a typical rise and gradual fall [...] consensus document of the Joint Society of Cardiology/[place] College of Cardiology Committee for the redefinition of myocardial infarction. Journal of the [place] College of Cardiology 2000; 36: 959-969] Creatine Kinase 455(H) 0 - 200 unit/L [facility]ER MILLENNIUM Blood specimen (specimen) 08/22/2013 4:03 AM EDT 08/22/2013 4:42 AM EDT Narrative Resulting Agency Comment Spec In Lab Tim Uribe MD CHEMISTRY ORDERABL ES [facility] MILLENNIUM * (ABNORMAL) CBC (with Diff) (08/22/2013 4:03 [...] MD HEMATOLOGY ORDERAB LES Performing Organization Address [facility] de Phone Number [facility] * POCT Glucose (08/21/2013 10:43 PM EDT) Glucose, POC 193 60 - 199 mg/dL [facility] Comment: Supplemental ranges: <110 mg/dL before meals <200 mg/dL all other times of the day Blood specimen (specimen) 08/21/2013 10:43 PM EDT 08/21/2013 10:43 PM EDT Asad Biggs MD POINT OF CARE TEST O RDERABLES Performing Organization Address [facility] Phone Number [facility] * (ABNORMAL) POCT Glucose (08/21/2013 8:28 PM EDT) Glucose, POC 259(H) 60 - 199 mg/dL [facility] Comment: Supplemental ranges: <110 mg/dL before meals <200 mg/dL all other times of the day Blood specimen (specimen) 08/21/2013 8:28 PM EDT 08/21/2013 8:28 PM EDT Asad Biggs MD POINT OF CARE TEST O RDERABLES Performing Organization Address [facility] Phone Number [facility] * (ABNORMAL) Cardiac Enzymes (08/21/2013 6:36 PM EDT) Troponin-T 0.93(H) <=0.03 ng/mL [facility] Comment: 0.03 ng/mL: Represents the 99th percentile upper reference limit for normals. >0.03 ng/mL: Elevated cardiac troponin T level indicative of myocardial damage. Diagnosis of acute, evolving or recent [place] requires a typical rise and gradual fall [...] consensus document of the Joint Society of Cardiology/[place] College of Cardiology Committee for the redefinition of myocardial infarction. Journal of the [place] College of Cardiology 2000; 36: 959-969] Creatine Kinase 594(H) 0 - 200 unit/L [facility] Blood specimen (specimen) 08/21/2013 6:36 PM EDT 08/21/2013 6:47 PM EDT Narrative Resulting Agency Comment Spec In Lab Sarthak Pollard MD CHEMISTRY ORDERABLES Performing Organization Address [facility] Co de Phone Number [email or web address] * POCT Glucose (08/21/2013 4:25 PM EDT) Pathologist [facility] Glucose, POC 138 60 - 199 mg/dL [facility] Comment: Supplemental ranges: <110 mg/dL before meals <200 mg/dL all other times of the day Blood specimen (specimen) 08/21/2013 4:25 PM EDT 08/21/2013 4:25 PM EDT Asda Biggs MD POINT OF CARE TEST O RDERABLES Performing Organization Address [facility] Co de Phone Number [email or web address] * EKG 12 Lead (08/21/2013 2:53 PM EDT) Ventricular rate 75 BPM MUSE SYSTEM Atrial Rate 75 BPM MUSE SYSTEM P-R Interval 172 ms MUSE SYSTEM QRS Duration 106 ms MUSE SYSTEM Q-T Interval 388 ms MUSE SYSTEM QTC Calculated (Bezet) 433 ms MUSE SYSTEM Calculated P [place] 11 degrees MUSE SYSTEM Calculated R [place] 35 degrees MUSE SYSTEM Calculated T [place] 1 degrees MUSE SYSTEM INTERPRETATION Normal sinus rhythm Normal ECG When compared with ECG of 21-AUG-2013 02:54, No significant change was found Confirmed by Pablito Torres MD ([id number]) on 08/22/2013 3:01:48 PM MUSE SYSTEM 08/21/2013 2:53 PM EDT 08/22/2013 3:01 PM EDT Tim Uribe MD ECG ORDERABLES Performing Organization Address [facility] Co de Phone Number MUSE SYSTEM * Cardiac Catheterization (08/21/2013 2:38 PM EDT) Anatomical Region Laterality Modality Other Narrative 08/21/2013 7:29 PM EDT Procedure Note Provider, Scanning - 08/21/2013 3:30 PM EDT Asad Biggs MD CARDIAC CATH ORDERAB LES * (ABNORMAL) POCT Glucose (08/21/2013 11:37 AM EDT) Glucose, POC 200(H) 60 - 199 mg/dL [facility] Comment: Supplemental ranges: <110 mg/dL before meals <200 mg/dL all other times of the day Blood specimen (specimen) 08/21/2013 11:37 AM EDT 08/21/2013 11:37 AM EDT Asad Biggs MD POINT OF CARE TEST O RDERABLES Performing Organization Address [facility] de Phone Number [facility] [employer] [facility] * (ABNORMAL) APTT (08/21/2013 11:09 AM EDT) Partial Thromboplastin Time 63(H) 25 - 35 sec [facility] Comment: Recommended therapeutic PTT range for full dose unfractionated heparin is 80-114 seconds. Blood specimen (specimen) 08/21/2013 11:09 AM EDT 08/21/2013 11:42 AM EDT Narrative Resulting Agency Comment Spec In Lab Asad Biggs MD HEMATOLOGY ORDERABLE S Performing Organization Address [facility] Co de Phone Number [facility] [employer] [facility] * Echocardiogram Transthoracic(Leb) (08/21/2013 9:16 AM EDT) EF 65 HEART[facility] SYSTEM Anatomical Region Laterality Modality Other 08/21/2013 Narrative 08/21/2013 9:51 AM EDT Procedure: ? Transthoracic Echocardiogram Patient: ? QUIANA Llanos ?(Age): 1975(38) Med Rec#: ?[id number] ? Sex: ?M ? Site Loc: ?[facility] ? Ht / Wt: ??180(cm)/127(kg) Pt. Loc: ? Adult Floor ?BSA: ?2.52 Study Date: ?08/21/2013 ? Pt. Type: Inpatient Tape: ? Referring: Eben Bingham Referring: AKANKSHA CAI Credit Manager: Patric Blunt [facility] Interpreting Fellow: Luca Wilson ([id number]) Diagnosis: ??Chest pain (786.50) CPT Code(s): ??Echo Full (23277), ??Spectral Doppler (57697), ??Color Doppler (82922), Indication(s): ??Chest Pain Rhythm: HR ?BP ?121/62 [...] ? Mid-Inferior ?Normal ? Mid-Inferoseptal ?Normal ? [place]-Septal ? Normal ? [place]-Anterior ? Normal ? [place]-Lateral ?Normal ? [place]-Inferior ? Normal ? [place]-Tip ?Normal ? Chambers ?Value ?Units (Range) ? [...] 08/21/2013 09:50:27 Images reviewed and interpretation verified [facility] Resulting Agency Comment [id number] Procedure Note Umair Brock MD - 08/21/2013 Procedure: Transthoracic Echocardiogram Patient: QUIANA Llanos (Age): 1975(38) Med Rec#: [id number] Sex: M Site Loc: [facility] Ht / Wt: 180(cm)/127(kg) Pt. Loc: Adult Floor BSA: 2.52 Study Date: 08/21/2013 Pt. Type: Inpatient Tape: Referring: Eben Bingham Referring: AKANKSHA CIA Credit Manager: Patric Blunt [facility] Interpreting Fellow: Luca Wilson ([id number]) Diagnosis: Chest pain (786.50) CPT Code(s): Echo Full (19550), Spectral Doppler (85447), Color Doppler (80488), Indication(s): Chest Pain Rhythm: HR BP 121/62 [...] Normal Mid-Posterolateral Normal Mid-Inferior Normal Mid-Inferoseptal Normal [place]-Septal Normal [place]-Anterior Normal [place]-Lateral Normal [place]-Inferior Normal [place]-Tip Normal Chambers Value Units (Range) LV EF [...] 08/21/2013 09:50:27 Images reviewed and interpretation verified [facility] Eben Ruiz MD ECHO ORDERABLES * (ABNORMAL) POCT Glucose (08/21/2013 8:33 AM EDT) Glucose, POC 202(H) 60 - 199 mg/dL [facility] MILLENNIUM Comment: Supplemental ranges: <110 mg/dL before meals <200 mg/dL all other times of the day Blood specimen (specimen) 08/21/2013 8:33 AM EDT 08/21/2013 8:33 AM EDT Asad Biggs MD POINT OF CARE TEST O RDERABLES [facility] * (ABNORMAL) APTT (08/21/2013 3:53 AM EDT) Partial Thromboplastin Time 61(H) 25 - 35 sec [facility] MILLENNIUM Comment: Recommended therapeutic PTT range for full dose unfractionated heparin is 80-114 seconds. Blood specimen (specimen) 08/21/2013 3:53 AM EDT 08/21/2013 4:00 AM EDT Narrative Resulting Agency Comment Spec In Lab Eben Ruiz MD HEMATOLOGY ORDERABLE S Performing Organization Address City/[facility]/ZIP Co de Phone Number [facility] MILLENNIUM * (ABNORMAL) Differential, Automated (08/21/2013 3:53 AM [...] EDT Eben Ruiz MD HEMATOLOGY ORDERABLE S [facility] [employer] [facility] * (ABNORMAL) Cardiac Enzymes (08/21/2013 3:53 AM EDT) Troponin-T 1.06(H) <=0.03 ng/mL [facility] MILLENNIUM Comment: 0.03 ng/mL: Represents the 99th percentile upper reference limit for normals. >0.03 ng/mL: Elevated cardiac troponin T level indicative of myocardial damage. Diagnosis of acute, evolving or recent [place] requires a typical rise and gradual fall [...] consensus document of the Joint Society of Cardiology/[place] College of Cardiology Committee for the redefinition of myocardial infarction. Journal of the [place] College of Cardiology 2000; 36: 959-969] Creatine Kinase 777(H) 0 - 200 unit/L [facility] MILLENNIUM Blood specimen (specimen) 08/21/2013 3:53 AM EDT 08/21/2013 4:00 AM EDT Narrative Resulting Agency Comment Spec In Lab Eben Ruiz MD CHEMISTRY ORDERABLES [facility] MILLENNI[facility] * (ABNORMAL) BMP w/fasting Glucose (08/21/2013 3:53 [...] of Diabetes Mellitus, Position Statement from the [place] Diabetes Association. ??Diabetes Care, Volume 33, Supplement 1, Nov 2009 Blood Urea Nitrogen 15 10 - 20 mg/dL CERNER MILLENNIUM Creatinine 0.67(L) 0.80 - 1.50 mg/dL CERNER MILLENNIUM Comment: Please note that the pediatric reference intervals supplied above were not validated at [facility]. Results from pediatric patients should be [...] In Lab Eben Ruiz MD CHEMISTRY ORDERABLES [facility] * (ABNORMAL) CBC (with Diff) (08/21/2013 3:53 [...] MD HEMATOLOGY ORDERABLE S Performing Organization Address [facility] de Phone Number [facility] * Prothrombin Time (08/21/2013 3:53 AM EDT) Prothrombin Time 13.5 12.0 - 15.0 sec [facility] Comment: [facility] Transfusion Committee Guidelines: INR less than 2.0, PTT less than OR equal to 43.5 seconds, or Fibrinogen greater than or equal to 100 mg/dl indicate adequate procoagulant activity for hemostasis in patients without underlying bleeding disorders. International Normalization Ratio 1.0 0.9 - 1.1 [facility] Blood specimen (specimen) 08/21/2013 3:53 AM EDT 08/21/2013 4:00 AM EDT Narrative Resulting Agency Comment Spec In Lab Asad Biggs MD HEMATOLOGY ORDERABLE S Performing Organization Address [facility] Phone Number [facility] * (ABNORMAL) Triglyceride (08/21/2013 3:53 AM EDT) Triglyceride 733(H) <=149 mg/dL [facility] Comment: Reference Range: Normal triglycerides: ??<150 mg/dL Borderline high: ??150-199 mg/dL High: ??200-499 mg/dL Very high: ??>zb=896 mg/dL ELISEO 2001; 285(19):9106-0224 Blood specimen (specimen) 08/21/2013 3:53 AM EDT 08/21/2013 4:00 AM EDT Narrative Resulting Agency Comment Spec In Lab Eben Ruiz MD CHEMISTRY ORDERABLES Performing Organization Address [facility] de Phone Number [facility] * (ABNORMAL) HDL/Cholesterol Profile (08/21/2013 3:53 AM EDT) Cholesterol, Total 218(H) <=199 mg/dL [facility] Comment: Recommendations of the NCEP Adult Treatment Panel for the following risk cutoff thresholds for the [place] population: Desirable: <200 mg/dL Borderline High: 200-239 mg/dL High: > or = 240 mg/dL HDL Cholesterol 24(L) >=40 mg/dL [facility] Comment: Reference range: ??Low HDL: ?? < 40 mg/dL ??Normal: ?40-60 mg/dL ??Desirable: > 60 mg/dL ELISEO 2001; 285(19):8138-5454 Cholesterol/HDL Ratio 9.1 ratio [facility] Comment: A Cholesterol to HDL ratio below 4:1 is desirable. ??Studies suggest that increased CAD risk occurs at ratios above 5 for females and above 6 for men. ? [place] Heart Association ??(http://www.americanheart.org) ? Jazmine Int Med, 1994; 121:641 ? AM J Med, 1998; 105(1A):48S Blood specimen (specimen) 08/21/2013 3:53 AM EDT 08/21/2013 4:00 AM EDT Narrative Resulting Agency Comment Spec In Lab Eben Ruiz MD CHEMISTRY ORDERABLES [facility] * (ABNORMAL) LDL Cholesterol, Direct (08/21/2013 3:53 AM EDT) LDL Cholesterol, Direct 107(H) <=99 mg/dL [facility] Comment: The National Cholesterol Education Program (NCEP) has set the following guidelines for LDL Cholesterol: Reference range: ?? Optimal: ?<100 mg/dL ?? Near Optimal/Above Optimal: ?? 100-129 mg/dL ?? Borderline high: ?130-159 mg/dL ?? High: ? 160-189 mg/dL ?? Very high: ?>ao=395 mg/dL ELISEO 2001: 285(66):0137-2324 Blood specimen (specimen) 08/21/2013 3:53 AM EDT 08/21/2013 4:00 AM EDT Narrative Resulting Agency Comment Spec In Lab Eben Ruiz MD CHEMISTRY ORDERABLES [facility] * (ABNORMAL) Hemoglobin A1c (08/21/2013 3:53 AM EDT) Hemoglobin A1c 10.0(H) 4.3 - 6.1 % [facility] Comment: The [place] Diabetes Association (ADA) has stated that HbA1c [...] 2013:36;suppl 1:S11-S66. Estimated Average Glucose 240 mg/dL [facility] Comment: eAG equivalents for HbA1c percentages: HbA1c(%) [...] into estimated average glucose values. ??Diabetes Care 2008:31(8):9334-2448. Blood specimen (specimen) 08/21/2013 3:53 AM EDT 08/21/2013 4:00 AM EDT Narrative Resulting Agency Comment Spec In Lab Eben Ruiz MD CHEMISTRY ORDERABLES Performing Organization Address [facility] Co de Phone Number [facility] * EKG 12 Lead (08/21/2013 2:54 AM EDT) Ventricular rate 68 BPM MUSE SYSTEM Atrial Rate 68 BPM MUSE SYSTEM P-R Interval 188 ms MUSE SYSTEM QRS Duration 104 ms MUSE SYSTEM Q-T Interval 406 ms MUSE SYSTEM QTC Calculated (Bezet) 431 ms MUSE SYSTEM Calculated P [place] 4 degrees MUSE SYSTEM Calculated R [place] 28 degrees MUSE SYSTEM Calculated T [place] 21 degrees MUSE SYSTEM INTERPRETATION Normal sinus rhythm Nonspecific T wave abnormality Abnormal ECG When compared with ECG of 20-AUG-2013 15:19, No significant change was found Confirmed by Pablito Torres MD ([id number]) on 08/21/2013 12:56:35 PM MUSE SYSTEM 08/21/2013 2:54 AM EDT 08/21/2013 12:56 PM EDT Eben Ruiz MD ECG ORDERABLES Performing Organization Address [facility] Co de Phone Number MUSE SYSTEM * (ABNORMAL) POCT Glucose (08/21/2013 1:59 AM EDT) Glucose, POC 262(H) 60 - 199 mg/dL [facility] Comment: Supplemental ranges: <110 mg/dL before meals <200 mg/dL all other times of the day Blood specimen (specimen) 08/21/2013 1:59 AM EDT 08/21/2013 1:59 AM EDT Asad Biggs MD POINT OF CARE TEST O RDERAHERNANDEZ Performing Organization Address [facility] de Phone Number ARIAN [facility] * (ABNORMAL) POCT Glucose (08/20/2013 11:54 PM EDT) Glucose, POC 290(H) 60 - 199 mg/dL [facility] Comment: Supplemental ranges: <110 mg/dL before meals <200 mg/dL all other times of the day Blood specimen (specimen) 08/20/2013 11:54 PM EDT 08/20/2013 11:54 PM EDT Asad Biggs MD POINT OF CARE TEST O GILDA Performing Organization Address [facility] Phone Number ARIAN [facility] * APTT (08/20/2013 11:51 PM EDT) Partial Thromboplastin Time 35 25 - 35 sec [facility] [employer] [facility] Comment: Recommended therapeutic PTT range for full dose unfractionated heparin is 80-114 seconds. Blood specimen (specimen) 08/20/2013 11:51 PM EDT 08/21/2013 12:01 AM EDT Narrative Resulting Agency Comment Spec In Lab Asad Biggs MD HEMATOLOGY ORDERABLE S Performing Organization Address [facility] de Phone Number ARIAN [facility] * (ABNORMAL) Cardiac Enzymes (08/20/2013 9:40 PM EDT) Troponin-T 0.74(H) <=0.03 ng/mL [facility] Comment: 0.03 ng/mL: Represents the 99th percentile upper reference limit for normals. >0.03 ng/mL: Elevated cardiac troponin T level indicative of myocardial damage. Diagnosis of acute, evolving or recent VA requires a typical rise and gradual fall [...] consensus document of the Joint Society of Cardiology/[place] College [employer] Cardiology Committee for the redefinition of myocardial infarction. Journal of the [place] College of Cardiology 2000; 36: 959-969] Creatine Kinase 828(H) 0 - 200 unit/L ARIAN CERDAIUM Blood specimen (specimen) 08/20/2013 9:40 PM EDT 08/20/2013 9:47 PM EDT Narrative Resulting Agency Comment Spec In Lab Eben Ruiz MD CHEMISTRY ORDERABLES ARIAN CERDAIUM * XR chest routine PA & lateral [...] Glucose, POC 200(H) 60 - 199 mg/dL [facility] Comment: Supplemental ranges: <110 mg/dL before meals <200 mg/dL all other times of the day Blood specimen (specimen) 08/20/2013 8:26 PM EDT 08/20/2013 8:26 PM EDT Asad Biggs MD POINT OF CARE TEST O RDERABLES Performing Organization Address [facility] Co de Phone Number [facility] * (ABNORMAL) POCT Glucose (08/20/2013 5:03 PM EDT) Pathologist [facility] Glucose, POC 230(H) 60 - 199 mg/dL [facility] Comment: Supplemental ranges: <110 mg/dL before meals <200 mg/dL all other times of the day Blood specimen (specimen) 08/20/2013 5:03 PM EDT 08/20/2013 5:03 PM EDT Asad Biggs MD POINT OF CARE TEST O RDERABLES Performing Organization Address [facility] Co de Phone Number [facility] * EKG 12 Lead (08/20/2013 3:19 PM EDT) Ventricular rate 68 BPM MUSE SYSTEM Atrial Rate 68 BPM MUSE SYSTEM P-R Interval 182 ms MUSE SYSTEM QRS Duration 100 ms MUSE SYSTEM Q-T Interval 410 ms MUSE SYSTEM QTC Calculated (Bezet) 435 ms MUSE SYSTEM Calculated P [place] 3 degrees MUSE SYSTEM Calculated R [place] 19 degrees MUSE SYSTEM Calculated T [place] 35 degrees MUSE SYSTEM INTERPRETATION Normal sinus rhythm Cannot rule out Inferior infarct (cited on or before 30-DEC-2011) When compared with ECG of 09-FEB-2012 10:55, Vent. rate has decreased BY ??34 BPM T wave inversion no longer evident in Anterior leads Confirmed by Torres MD, Pablito ([id number]) on 08/20/2013 5:30:42 PM MUSE SYSTEM [...] Asad Biggs MD HEMATOLOGY ORDERABLE S ARIAN CERDAIUM * Magnesium (08/20/2013 1:45 PM EDT) Magnesium 0.74 0.69 - 1.07 mmol/L CERBRIAN CAENNIUM Blood specimen (specimen) 08/20/2013 1:45 PM EDT 08/20/2013 1:54 PM EDT Narrative Resulting Agency Comment Spec In Lab Asad Biggs MD CHEMISTRY ORDERABLES Performing Organization Address [facility] Co de Phone Number ARIAN CERDAIUM * (ABNORMAL) Cardiac Enzymes (08/20/2013 1:45 PM EDT) Troponin-T 0.34(H) <=0.03 ng/mL CERBRIAN CAENNIUM Comment: 0.03 ng/mL: Represents the 99th percentile upper reference limit for normals. >0.03 ng/mL: Elevated cardiac troponin T level indicative of myocardial damage. Diagnosis of acute, evolving or recent VA requires a typical rise and gradual fall [...] consensus document of the Joint Society of Cardiology/[place] College of Cardiology Committee for the redefinition of myocardial infarction. Journal of the [place] College of Cardiology 2000; 36: 959-969] Creatine Kinase 505(H) 0 - 200 unit/L CERBRIAN CAENNIUM Blood specimen (specimen) 08/20/2013 1:45 PM EDT 08/20/2013 1:54 PM EDT Narrative Resulting Agency Comment Spec In Lab Asad Biggs MD CHEMISTRY ORDERABLES Performing Organization Address City/[facility]/ZIP Co de Phone Number CERNER MILLENNIUM * (ABNORMAL) Basic Metabolic Panel (non-fasting) (08/20/2013 1:45 PM EDT) [facility] Signature Glucose 246(H) 60 - 199 mg/dL CERNER MILLENNIUM Comment:Diabetes: >=200 mg/d L plus symptoms Blood Urea Nitrogen 15 10 - 20 mg/dL CERNER MILLENNIUM Creatinine 0.68(L) 0.80 - 1.50 mg/dL CERNER MILLENNIUM Comment: Please note that the pediatric reference intervals supplied above were not validated at [facility]. Results from pediatric patients should be [...] Biggs MD CHEMISTRY ORDERABLES Performing Organization Address City/[facility] de Phone Number [facility]AN [facility] * (ABNORMAL) APTT (08/20/2013 1:45 PM EDT) Partial Thromboplastin Time 40(H) 25 - 35 sec [facility] Comment: Recommended therapeutic PTT range for full dose unfractionated heparin is 80-114 seconds. Blood specimen (specimen) 08/20/2013 1:45 PM EDT 08/20/2013 1:45 PM EDT Narrative Resulting Agency Comment Spec In Lab Asad Biggs MD HEMATOLOGY ORDERABLE S Performing Organization Address [facility] Phone Number [facility] * Prothrombin Time (08/20/2013 1:45 PM EDT) Prothrombin Time 13.7 12.0 - 15.0 sec [facility] Comment: [facility] Transfusion Committee Guidelines: INR less than 2.0, PTT less than OR equal to 43.5 seconds, or Fibrinogen greater than or equal to 100 mg/dl indicate adequate procoagulant activity for hemostasis in patients without underlying bleeding disorders. International Normalization Ratio 1.0 0.9 - 1.1 [facility] Blood specimen (specimen) 08/20/2013 1:45 PM EDT 08/20/2013 1:45 PM EDT Narrative Resulting Agency Comment Spec In Lab Asad Biggs MD HEMATOLOGY ORDERABLE S Performing Organization Address [facility] de Phone Number [facility] * D-Dimer, Quantitative (08/20/2013 1:45 PM EDT) D-Dimer <200 0 - 500 FEU ng/ml [facility] Comment: The D-Dimer assay is used to [...] Asad Biggs MD HEMATOLOGY ORDERABLE S CERNER ROBYENNIUM * (ABNORMAL) CBC (with Diff) (08/20/2013 1:45 [...] Platelet Volume 11.4 9.0 - 12.0 fL CERNER MILLENNIUM Blood specimen (specimen) 08/20/2013 1:45 PM EDT 08/20/2013 1:45 PM EDT Narrative Resulting Agency Comment Spec In Lab Asad Biggs MD HEMATOLOGY ORDERABLE S CERBRIAN CERDAIUM * Lavender Tube HOLD (08/20/2013 1:45 PM EDT) Lavender Hold Sample in lab. CERNER MILLENNIUM Blood specimen (specimen) 08/20/2013 1:45 PM EDT 08/20/2013 1:45 PM EDT Asad Biggs MD HEMATOLOGY ORDERABLE S Performing Organization Address [facility] de Phone Number ARIAN NELSON * Blue Tube HOLD (08/20/2013 1:45 PM EDT) Blue Hold Sample in lab. [facility] Blood specimen (specimen) 08/20/2013 1:45 PM EDT 08/20/2013 1:45 PM EDT Asad Biggs MD HEMATOLOGY ORDERABLE S Performing Organization Address [facility] de Phone Number ARIAN NELSON * Green Tube HOLD (08/20/2013 1:45 PM EDT) Green Hold Sample in lab. [facility] Blood specimen (specimen) 08/20/2013 1:45 PM EDT 08/20/2013 1:45 PM EDT Asad Biggs MD CHEMISTRY ORDERABLES Performing Organization Address [facility] de Phone Number ARIAN NELSON * (ABNORMAL) POCT Glucose (08/20/2013 1:23 PM EDT) Glucose, POC 243(H) 60 - 199 mg/dL [facility] Comment: Supplemental ranges: <110 mg/dL before meals <200 mg/dL all other times of the day Blood specimen (specimen) 08/20/2013 1:23 PM EDT 08/20/2013 1:23 PM EDT Asad Biggs MD POINT OF CARE TEST O RDERABLES Performing Organization Address [facility] Co de Phone Number ARIAN NELSON documented in this encounter Visit Diagnoses Not on filedocumented in this encounter Administered Medications Inactive Administered Medications - up to 3 most recent administrations Medication Order MAR Action Action Date Dose Rate Site acetaminophen (TYLENOL) tablet 1,000 mg 1,000 mg, Oral, EVERY 6 HOURS PRN, Starting on 08/20/13 at 1528, Until Tu08/22/13 at 1741, Pain, Maximum dose of acetaminophen [...] in sodium chloride 0.9% 50 mL infusion (DESK ATTENDANT) CONTINUOUS PRN, Starting on Wed08/21/13 at 1345, [...] than 145 sec X 2 - call assistant housekeeping manager See Bolus dosing guidance for aPTT values [...] BEFORE MEALS & NIGHTLY, First dose on 08/20/13 at 1630, Until Discontinued, CORRECTION BOLUS [...] at [facility]SH) 0900 (Given - Provider: Lola Tipton, DAVID) aspirin EC tablet 81 mg 81 mg, [...] RN) 0858 (Given - Provider: Lola Tipton, DAVID) glimepiride (AMARYL) tablet 2 mg 2 mg, [...] Tipton RN - Comment: pt was having echo)120 (Given - Provider: Lola Tipton, DAVID)162 (Not Given - Provider: Lola Tipton RN - Reason: Order parameters not met)2036 (Given - Provider: Allen Tavarez, DAVID) 0857 (Given - Provider: Roxanna Mcallister)1208 (Given [...] Lola Tipton RN)2036 (Given - Provider: Allen Tavarez, DAVID) 0858 [...] Kent RN)1215 (Not Given - Provider: Lola Tipton, DAVID - Reason: Patient not available) venlafaxine (EFFEXOR-XR) [...] than 145 sec X 2 - call assistant housekeeping manager See Bolus dosing guidance for aPTT values less than 80 seconds under PRN medications, Routine 1330 (New Bag - Provider: Sana M Truell, RN)1841 (Rate/Dose Change - Provider: Sana Bella [...] Tipton RN)1050 (Canceled Entry - Provider: Lola Tipton, DAVID) sodium chloride 0.9% infusion (CANCELED) 100 mL/hr, [...] in sodium chloride 0.9% 50 mL infusion (DESK ATTENDANT) (CANCELED) CONTINUOUS PRN, Starting on Wed08/21/13 at [...] Angel Finley RN)1412 (Given - Provider: Fredrick Villegas, DAVID) flu vaccine (36 mos+) (PF) (FLUZONE) 45 [...] Routine documented in this encounter Care Teams Laboratory Equipment Cleaner Relationship Specialty Start Date End Date Patric Al MD PCP - General 12/29/11 02/26/19 documented as of this encounter
--- OUTSIDE RECORDS SUMMARY | 2024-07-25 15:04 | XMS_ITS | Encounter Summary ---
Author Organization [facility] Address [facility] Jean Marie britton [place] [id number] Care Team Providers Care Child And Family Services Worker Name Role Phone Patric Al MD Primary Care Provider [phone] Reason for Referral * (Routine) - Closed by system - unspecified Specialty Diagnoses / Procedures Referred By Contac t Referred To Contact Diagnoses Chest pain Sarthak Pollard MD [facility] [place] [address] Referral ID Status Reason Start Date Expiration Date Visits Requested Visits Authorized [id number] Closed by system - unspecified Evaluate and Treat 01/08/2012 07/06/2012 1 1 Encounter Details Date Type Department Care Team (Latest Contact Info) Description 12/29/2011 8:26 PM EST - 01/08/2012 2:58 PM EST Hospital Encounter Intermediate [place] [address] Andi Rene MD [facility] [address] Sarthak Pollard MD [facility] [place] [address] Inna Tovar MD [facility] [place] [address] Chest pain Discharge Disposition: Home with VNA [...] Discharge Instructions * Discharge Instructions* Darcie Lange, COPIER FIELD SERVICE TECHNICIAN - 01/08/2012 12:11 PM EST Geovanna Dixon . 1975 [id number] New Diagnosis of Pre-Diabetes For discharge should [...] Some considerations about using metformin in Prediabetics: [place] Diabetes Prevention Program (DPP) as well as other minor studies and meta-analyses has convincingly demonstrated the efficacy of metformin in this patient group [pre-diabetics]. In addition, results of the 10 year DPP follow up have recently been published, demonstrating the shelter safety and sustainability of metformin treatment benefits [...] - will be starting Cardiac rehab at [facility], encouraged to increase physical activity as advised by cardiologists Weight Loss - A 7% weight loss could significantly improve his BG control Tobacco cessation - There is growing evidence that cigarette smokers are more prone than the general population to develop T2DM. Increase in insulin resistance with tobacco use. Darcie Lange APRN [facility] Endocrinology Diabetes Management [phone] * Patient Instructions* Ricky Graham PA - [...] Anne Tovar and/or the Cardiothoracic Surgery Physician National Expansion Recruiter Team may be reached at . Activity [...] Dr. Inna Tovar. You may use a [place] Track or treadmill but avoid any pulling [...] friends, go to a movie, go to jew, etc. Heavy activities: No hunting, skiing, jogging, [...] would be to continue to go [place]. He has quit this way before and [...] only 10% of those who quit [place] are able to be successful. The calculated savings once he quits smoking would be $54 a week, $234 a month, and $2803 a year. If he quits now his savings will be $28,030 in 10 years. The patient was provided with a [facility] Smoking Cessation packet and the contents have been reviewed with him. The patient now has the Quit line number for [place] and has also been encouraged to use this ifneeded for support. In addition he was in agreement with a referral to the [place] Quitnetwork and a referral was faxed to them on his behalf. Patient has been advised to contact Florencio Martines APRN with any questions or if he [...] tablet Take 225 mg by mouth daily. Blood Sugar Diagnostic [...] given to patient. Discharge summary faxed to [facility] and receipt confirmed via phone. Patient discharged [...] with family support. Pt to f/u w/ and cardiac PT on an outpatient basis Equipment needs: none ADEBAYO MCGARRY, TANK TRUCK ENGINE MECHANIC Pager: [phone] Physical Therapy Rehabilitation Department * Michelle Chong [...] services. Patient would like VNA services through [facility] [employer] [facility] [employer]. PHONE: [phone] FAX: [phone]. Referral made via E-discharge. Please see home care orders that must be included in discharge summary for VN services to start. Patient has glucometer and supplies at bedside. Pt. Denies any further needs from [facility]. Pt. Gets scripts through [place] Medicaid with co-pay. He denies any concerns related to co-pay. * Darcie Lange, COPIER FIELD SERVICE TECHNICIAN - 01/07/2012 9:57 AM EST Geovanna Dixon . 1975 [id number] PATRIC AL MD Follow Up Diabetes Consult [...] Some considerations about using metformin in Prediabetics: [place] Diabetes Prevention Program (DPP) as well as other minor studies and meta-analyses has convincingly demonstrated the efficacy of metformin in this patient group [pre-diabetics]. In addition, results of the 10 year DPP follow up have recently been published, demonstrating the shelter safety and sustainability of metformin treatment benefits [...] - will be starting Cardiac rehab at [facility], encouraged to increase physical activity as advised [...] sensitive Novolog correction only Darcie Lange APRN [facility] Endocrinology Diabetes Management [phone] Pager [phone] This case was discussed with Dr. Christina Brody. 25 min time spent in patient care with 20 counseling, seeing patient, changing orders and discussion with the patient and the primary team as well as nursing. * Inna Tovar MD - 01/07/2012 9:39 AM EST Cardiac Surgery Progress Note: ID: [id number] 36/M POD #[address] Tovar [...] healing well Tubes/Lines/Drains: PIV Recent Labs Basename 01/07/12 0411 01/05/12 0200 01/04/12 2100 01/04/12 1528 01/04/12 1425 [...] -- -- 364 356 Recent Labs Basename 01/07/12 0411 01/06/12 0959 01/05/12 0200 01/04/12 2100 ??? NA [...] results found for this basename: phart, po2art, ilg2eup Assessment/Plan: Pathway. Neuro: ambulating on own per [...] home. 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 OR ??? Cabg, artery-vein, single 01/04/2012 @CABG, VENOUS & ARTERIAL GRAFT;SINGLE VEIN GRAFT performed by INNA TOVAR at [facility] OR Outpatient prescriptions marked as taking [...] yes Date: 12/29/11 Why then: Admission to [facility] What will be different this time: Just [...] in places where it is forbidden ex jew No Yes 0 3. Which cigarette would [...] would be to continue to go [place]. He has quit this way before and it lasted several years, so he has a history of being successful with this method. He also pointed out that his father and an uncle quit (for now over 10 years) by going [place]. I told him that it is difficult to recommend a quit method that has a 90% failure rate, but that said, it is his choice and that I would provide him with a toolkit of information so that he will be as knowledgeable as possible about nicotineaddiction and how to stay quit. And we do know that 10% of those who quit [place] are able to be successful. I calculated and shared with him that his savings once he quits smoking would be $54 a week, $234 amonth, and $2803 a year. If he quits now his savings will be $28,030 in 10 years. The patient has also been provided with a [facility] Smoking Cessation packet and the contents have been reviewed with him. The patient now has the Quit line number for [place] and has also been encouraged to use this if needed for support. In addition he was in agreement with a referral to the [place] Quitnetworkand I have FAXed a referral to [...] Nutrition Intervention: Hospital Day 9 Diet Order: [facility] Appetite: fair Food allergies: none Chewing/Swallowing difficulty: none Height: (cm) 180.3 Weight: (kg) 127.9 01/06/12 Wt hx: (kg) 124.5 12/29/11 BMI: 38.4 Education: [facility] dietary guidelines. Tips To Better Food Intake (Protein) dietary guidelines. Verbalized good understanding. Education material, with means of contact provided. Assessment: Patient verbalized good understanding of protein needs for healing as well as [facility] Heart Healthy guidelines. I have added high protein snacks between meals and CIB shakes to meal trays for extra protein/nutrition. Nutrition Plan: Diet: [facility] Recommend Daily Multi Vitamins. Added high protein snacks. CIB w/skim milk shakes three times per day. Encourage good po intake. Monitor weight. Support and encouragement provided. Nutrition services to follow weekly thru hospital course unless consulted in the interim. ACOSTA SMALL * Inna Tovar MD - 01/06/2012 1:50 PM EST Cardiac Surgery In Patient Progress Note Patient Name: Geovanna Dixon Jr. : [id number] MR#: [id number] Admitted: 12/29/2011 Hospital Day 8 days Problem [...] DM Dispo: ICCU. Physical Therapy. On pathway IR * Taylor Hamlin RN - 01/06/2012 10:11 AM EST [facility] CARDIAC REHABILITATION Geovanna Viet Dixon Jr. was seen today regarding participation in outpatient Phase 2 Cardiac Rehabilitation at [facility] . A referral will be sent to this program. The patient was given contact information and should expect to be contacted by the program within 1-2 weeks after discharge from [facility]. IR * Kareen Mendoza PT - 01/05/2012 [...] CABG performed by INNA TOVAR at [facility] OR ??? Cabg, artery-vein, single 01/04/2012 @CABG, VENOUS & ARTERIAL GRAFT;SINGLE VEIN GRAFT performed by INNA TOVAR at [facility] OR Social History: Patient lives with [...] minutes brief evaluation KAREEN MENDOZA, PT Pager: [phone] Physical Therapy Rehabilitation Department Camille Blake MD - 01/05/2012 10:12 AM EST Progress [...] 124.3 kg (274 lb 0.5 oz) 12/29/11 210 124.5 kg (274 lb 7.6 oz) CBC [...] A: medical plan still evolving. P: This global technical writer or colleague from the Office of [...] AM EST CARDIOLOGY INPATIENT PROGRESS NOTE Geovanna Shahmonika Heart SUMMARY: Geovanna Dixon JrFlorencio is a 36 [...] 0915) ??? sodium chloride 0.9% 30 mL/hr (12/30/1193) PRN Meds:.heparin (porcine), sodium chloride 0.9%, fentaNYL [...] FULL CODE Paola Akers PGY 1 Pager [phone] Attending Addendum: I spoke with the patient and his family briefly this am. I agree with the principal findings. The impression and plan incorporate my input. No contraindication to surgery today. Sarthak Pollard MD [facility] pager [phone] * Sarthak Pollard MD - 01/03/2012 11:08 AM EST CARDIOLOGY INPATIENT PROGRESS NOTE Geovanna Viet Dixon Jr. SUMMARY: Geovanna Dixon JrFlorencio is [...] 124.3 kg (274 lb 0.5 oz) 12/29/11 210 124.5 kg (274 lb 7.6 oz) MEDICATIONS: [...] risk of aggravating CAD. Sarthak Pollard MD [facility] pager [phone] * Bal John MD - 01/02/2012 3:10 [...] confirms his findings. Of note today: Mr. Dixon's throat feels better. He has been afebrile. [...] Cristina Ambriz MD PGY1, Internal Medicine Pager [phone] 01/02/2012 Attending Addendum: I have interviewed and examined the patient. I agree with the principal findings. The impression and plan incorporate my input. As above, doing well. Will keep on heparin until surgery. No angina, HF, bleeding, or evidence of HIT. Sarthak Pollard MD [facility] pager [phone] * Inna Tovar MD - 01/01/2012 3:17 PM EST Please see Dr. Major's note from 12/31/11 for full details. Briefly, Mr. Dixon developed unstable angina and ruled in for [place]. Cath shows severe 3 vessel disease. Echo [...] 124.3 kg (274 lb 0.5 oz) 12/29/11 210 124.5 kg (274 lb 7.6 oz) MEDICATIONS: [...] mg BID Paola Akers PGY 1 Pager [phone] Attending Addendum: I have interviewed and examined the patient. I agree with the principal findings. The impression and plan incorporate my input. He is disappointed that his surgery has been postponed until Wednesday butunderstands. He remains cp free. I've reviewed his angiograms and believe he needs to stay on heparin until surgery. All questions answered. Sarthak Pollard MD [facility] pager [phone] * Andi Rene MD - 12/31/2011 5:20 [...] for chest pain as a transfer from [facility] - Cardiac cath yesterday showed significant [...] mg BID Paola Akers PGY 1 Pager [phone] Cardiology Attending Progress Note Addendum: I have [...] would like to attend cardiac rehab at [facility] in [facility]. We will meet him again after [...] off unit to XRAY with transpo & ONLINE ADVERTISING MANAGER. documented in this encounter H&P Notes * Herman Loyd RN - 01/05/2012 12:44 PM EST [facility] , report to [facility]. * Inna Tovar [...] Lives on social security in house in [facility] with two children (18 and 4, and one step child) Active pack per day smoker (27pack year history) No etoh No drugs Enjoys riding motorcycles and hunting He is NOT a amish FHx: Heart disease on both sides of the family Father's side with multiple uncles with MO's, one at age of 40 Mother's side with uncle at age 50 from [place] Diabetes in mother ROS: Positive headache, nausea [...] 13.2 12/29/2011 PTT 31 12/30/2011 Troponins at [facility]: 0.05-->0.03 Imaging: Echo 12/30/11: 1. The left [...] loss were emphasized as they relate to shelter patency of his grafts. He should receive smoking cessation counseling donya. One post op consideration will be vent wean and respiratory status given likely underlying CAMILLA and his known narcolepsy. Pre op orders written, heparin gtt to stop personnel research scientist to OR. Pt seen and interviewed with [...] +active 25 pack year smoker comes to [facility] from [facility] for evaluation of [...] history (both paternal grandparents passing away from [facility] and paternal aunts/uncles with histories of CAD). [...] FULL Provider: REMIGIO CERON MD Pager #: [phone] documented in this encounter Procedure Notes * Provider, Scanning - 01/10/2012 1:46 PM ESTAssociated Order(s): SCAN DOC: NURSE INFORMATICIST * Provider, Scanning - 01/10/2012 1:46 PM [...] PM EST * Miscellaneous - Provider, Scanning 01/10/2012 1:46 PM EST * Miscellaneous - Provider, Scanning - 01/10/2012 1:46 PM EST * Consult Note - Darcie Lange APRN - 01/06/2012 3:45 PM EST Geovanna Dixon Jr. 1975 [id number] Inpatient Endocrinology Glucose Management Consult Date of [...] and to provide a review of his shelter diabetes plan. Diabetes History: Geovanna Dixon Jr. has NO history of diabetes, + for a family history of diabetes on mother's side and some on father's. Family history is also very significant for coronary artery disease. He stated that he has been tested in the past for diabetes but told that he does have diabetes, uncertain on A1C #. As per [facility] labs last A1C = 6.1% which suggests [...] Diabetes Care: Medications: None Monitoring: None Diet: [facility] Healthy No Known Allergies Past Medical History: [...] considerations about using metformin in Prediabetics: ?? [place] Diabetes Prevention Program (DPP) as well as other minor studies and meta-analyses hasconvincingly demonstrated the efficacy of metformin in this patient group [pre-diabetics]. In addition, results of the 10 year DPP follow up have recently been published, demonstrating the prepress operator safety and sustainability of metformin treatment [...] - will be starting Cardiac rehab at [facility], encouraged to increase physical activity as advised [...] metformin 500 mg QD Darcie Lange APRN [facility] Endocrinology Diabetes Management [phone] Pager [phone] This case was discussed with Dr. Christina [...] effusion or hematoma. Hospital Course: Geovanna Dixon JrFlorencio was admitted to [facility] on 12/29/2011 to the cardiologyservice for [...] Medications: Geovanna Dixon Jr. Home Medication Instructions CRAIG:[id number] Printed on:01/08/12 3295 Medication Information simvastatin (ZOCOR) 20 mg tablet [...] Anne Tovar and/or the Cardiothoracic Surgery Physician National Expansion Recruiter Team may be reached at . Activity [...] Dr. Inna Tovar. You may use a [place] Track or treadmill but avoid any pulling [...] friends, go to a movie, go to jew, etc. Heavy activities: No hunting, skiing, jogging, [...] would be to continue to go [place]. He has quit this way before and [...] only 10% of those who quit [place] are able to be successful. The calculated savings once he quits smoking would be $54 a week, $234 a month, and $2803 a year. If he quits now his savings will be $28,030 in 10 years. The patient was provided with a [facility] Smoking Cessation packet and the contents have been reviewed with him. The patient now has the Quit line number for [place] and has also been encouraged to use [...] Some considerations about using metformin in Prediabetics: [place] Diabetes Prevention Program (DPP) as well as other minor studies and meta-analyses has convincingly demonstrated the efficacy of metformin in this patient group [pre-diabetics]. In addition, results of the 10 year DPP follow up have recently been published, demonstrating the prepress operator safety and sustainability of metformin treatment [...] - will be starting Cardiac rehab at [facility], encouraged to increase physical activity as advised by cardiologists Weight Loss - A 7% weight loss could significantly improve his BG control Tobacco cessation - There is growing evidence that cigarette smokers are more prone than the general population to develop T2DM. Increase in insulin resistance with tobacco use. Darcie Lange APRN [facility] Endocrinology Diabetes Management [phone] Medications: Take only those medications listed on [...] should resume a low fat, low cholesterol, [place] Heart Association Diet. Driving: No driving for [...] in outpatient Phase 2 Cardiac Rehabilitation at [facility] . A referral will be sent to this program. He was given contact information and shouldexpect to be contacted by the program within 1-2 weeks after discharge from [facility]. Arrangements for VNA/home care: PATIENT'S LOCATION: Geovanna Dixon Jr. [address] [place] [address] [place] [address] There is no home phone number on file. Telephone Information: In discussion with the attending physician, it is certified that this patient is under their care and that they, or a nurse practitioner, clinical nurse specialist or physician's temporary administrative assistant who is working directly with them, [...] for services as follows: HOME HEALTH AGENCY: [facility] [employer]. PHONE: [phone] FAX: [phone] RN orders: Cardiopulmonary assessment, incisional assessment, assess [...] issues please call the Cardiac SurgeryOffice at [phone] FOR MEDICARE ONLY: (please delete this section if not Medicare) In discussion with the attending physician, it is certified that the clinical findings support thatthis patient is homebound (i.e. absences from home require considerable and taxing effort and are for medical reasons or episcopalian services of infrequently or of short duration [...] nurse practitioner, clinical nurse specialist or physician's temporary administrative assistant who is working directly with them, [...] effort and are for medical reasons or episcopalian services of infrequently or of short duration when for other reasons) Please note that any additional orders needs or changes will need to be obtained from this patient's PCP: PATRIC AL MD [phone] All VNA agencies which cover the area of patient's residence have been reviewed, either verbally feli writing, and patient/family have chosen the indicated home health care agency for home services. Comments: Questions: Responses: Agency name and contact information [facility] Patient location post discharge home What services are requested Start date 01/10/2012 Responsible MD post discharge contact info PCP RN to remove chest tube sutures on or after 01/13/12. Signed: Ricky Graham PA-C [facility] Section of Cardiothoracic Surgery Date: 01/08/12 CC: MD CARLOS MENDEZ [facility] [address] [place] [phone] * Op Note - Inna Tovar MD - 01/04/2012 3:55 PM EST [facility] Operative Note Patient Name: Geovanna Dixon Jr. : [id number] MR#: [id number] Case Date: 01/04/2012 Surgeon: Surgeon(s) and Role: [...] enlarged. There was diffuse disease in all napaimute vessels. The OFELIA and vein were of excellent quality. The lungs had early emphysematous changes. Procedure Details: The patient was brought to the operating room and given general anesthesia. A Eden-Haley catheter, radial arterial line, and Mendez catheter [...] fter inspection for adequate hemostasis, two #28 Montserratian chest tubes were placed and brought out [...] Note Patient Name: Geovanna Dixon Jr. 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 No recent out door activities or [...] likely. (Leukocytosis may be r/t stress of [place].) Bacteremia as a complication of his cath, [...] right groin area and reports a headache. aware. Will continue to monitor. * Miscellaneous - Provider, Scanning - 12/29/2011 10:32 PM EST * Miscellaneous - Provider, Scanning - 12/29/2011 10:32 PM EST documented in this encounter Plan of Treatment Upcoming Encounters Date Type Department Care Team (Latest Contact Info) Description 08/01/2024 7:30 AM EDT Hospital Encounter [place] [address] Lisette Maldonado MD [facility] [place] [place] [address] 08/01/2024 7:30 AM EDT - 08/01/2024 1:43 PM EDT Surgery [place] [phone] Lisette Maldonado MD [facility] [place] [address] @BYPASS GRAFT, FEM-ANT TIBIAL, -POST TIBIAL, -PERONEAL, [...] EST LAB SCAN 01/10/2012 1:46 PM EST NURSE INFORMATICIST SCAN 01/10/2012 1:46 PM EST CARDIAC CATH [...] 2:05 AM EST DIFFERENTIAL, AUTOMATED Routine 01/05/20 2:00 AM EST CARDIAC ENZYMES ([facility]/CGP) Routine 01/05/2012 2:00 AM EST CREATININE Routine [...] 12/30/2011 4:25 PM EST TYPE AND SCREEN ([facility]/CGP/BABITA) Routine 12/30/2011 4:14 PM EST CARDIAC ENZYMES ([facility]/CGP) STAT 12/30/2011 2:08 PM EST APTT STAT 12/30/2011 2:08 PM EST HIV SCREEN, 4TH GENERATION ([facility]/CGP/APD/NLH) Routine 12/30/2011 10:18 AM EST ECHOCARDIOGRAM TRANSTHORACIC [...] Routine 12/30/2011 7:07 AM EST CARDIAC ENZYMES ([facility]/CGP) STAT 12/30/2011 5:45 AM EST APTT STAT [...] 12/29/19 12 11:29 PM EST CARDIAC ENZYMES ([facility]/CGP) STAT 12/29/2011 11:29 PM EST APTT STAT [...] (Bezet) 453 ms MUSE SYSTEM Calculated P Aneta 41 degrees MUSE SYSTEM Calculated R Aneta 25 degrees MUSE SYSTEM Calculated T Aneta 74 degrees MUSE SYSTEM INTERPRETATION Sinus tachycardia [...] SCAN EXT O RDR/RSLT * SCAN DOC: NURSE INFORMATICIST (01/10/2012 1:46 PM EST) Anatomical Region Laterality Modality Other Narrative 01/11/2012 8:32 AM EST Procedure Note Provider, Scanning - 01/10/2012 1:46 PM EST Scanning Provider MEDIA MGR SCAN EXT O RDR/RSLT * POCT GLUCOSE LAB USE ONLY (01/08/2012 12:00 PM EST) Glucose, POC 106 60 - 199 mg/dL [facility] Comment: Supplemental ranges: <110 mg/dL before meals <200 mg/dL all other times of the day Blood specimen (specimen) 01/08/2012 12:00 PM EST 01/08/2012 12:00 PM EST Andi Rene MD POINT OF CARE TEST O RDERABLES Performing Organization Address [facility] Co de Phone Number [facility] * Potassium (01/08/2012 10:05 AM EST) Potassium 4.2 3.5 - 5.0 mmol/L [facility] Comment: Please note: ??Patients with WBC [...] Tovar MD CHEMISTRY ORDERABLES Performing Organization Address City/[facility]/ZIP Co de Phone Number [facility] * POCT GLUCOSE LAB USE ONLY (01/08/2012 7:21 AM EST) Glucose, POC 144 60 - 199 mg/dL [facility] Comment: Supplemental ranges: <110 mg/dL before meals <200 mg/dL all other times of the day Blood specimen (specimen) 01/08/2012 7:21 AM EST 01/08/2012 7:21 AM EST Andi Rene MD POINT OF CARE TEST O GILDA Performing Organization Address [facility] de Phone Number [facility] * POCT GLUCOSE LAB USE ONLY (01/07/2012 8:43 PM EST) Glucose, POC 179 60 - 199 mg/dL [facility] Comment: Supplemental ranges: <110 mg/dL before meals <200 mg/dL all other times of the day Blood specimen (specimen) 01/07/2012 8:43 PM EST 01/07/2012 8:43 PM EST Andi Rene MD POINT OF CARE TEST O GILDA Performing Organization Address [facility] de Phone Number [facility] * POCT GLUCOSE LAB USE ONLY (01/07/2012 4:47 PM EST) Glucose, POC 128 60 - 199 mg/dL [facility] Comment: Supplemental ranges: <110 mg/dL before meals <200 mg/dL all other times of the day Blood specimen (specimen) 01/07/2012 4:47 PM EST 01/07/2012 4:47 PM EST Andi Rene MD POINT OF CARE TEST O GILDA Performing Organization Address [facility] de Phone Number [facility] * Potassium (01/07/2012 11:42 AM EST) Potassium 3.6 3.5 - 5.0 mmol/L [facility] Comment: Please note: ??Patients with WBC [...] Tovar MD CHEMISTRY ORDERABLES Performing Organization Address [facility] Co de Phone Number [employer] * POCT GLUCOSE LAB USE ONLY (01/07/2012 11:41 AM EST) [facility] Glucose, POC 114 60 - 199 mg/dL [facility] [employer] Comment: Supplemental ranges: <110 mg/dL before meals <200 mg/dL all other times of the day Blood specimen (specimen) 01/07/2012 11:41 AM EST 01/07/2012 11:41 AM EST Andi Rene MD POINT OF CARE TEST O RDERABLES Performing Organization Address [facility] de Phone Number [employer] * XR chest routine PA & lateral [...] EST Sarthak Pollard MD HEMATOLOGY ORDERABLE S [facility] M[facility] * (ABNORMAL) Basic Metabolic Panel (non-fasting) (01/07/2012 4:11 AM EST) Pathologist [facility] Glucose 127 60 - 199 mg/dL CERNER [...] In Lab Sarthak Pollard MD CHEMISTRY ORDERABLES [facility] * (ABNORMAL) CBC (with Diff) (01/07/2012 4:11 [...] 30 - 300 Clinical Albuminuria ?? >300 *[place] [employer]. Diabetic Nephropathy. Diabetes Care 1997;(Suppl 1):S24-S27 Exercise within 24 hour, infection, fever, CHF, marked hyperglycemia, and marked hypertension may elevate urinary albumin excretion over baseline values. Urine specimen (specimen) 01/06/2012 9:03 PM EST 01/06/2012 10:28 PM EST Narrative Resulting Agency Comment Spec In Lab Inna Tovar MD URINE ORDERABLES Performing Organization Address [facility] de Phone Number [facility] * POCT GLUCOSE LAB USE ONLY (01/06/2012 7:46 PM EST) Glucose, POC 127 60 - 199 mg/dL [facility] Comment: Supplemental ranges: <110 mg/dL before meals <200 mg/dL all other times of the day Blood specimen (specimen) 01/06/2012 7:46 PM EST 01/06/2012 7:46 PM EST Andi Rene MD POINT OF CARE TEST O RDTYESHA Performing Organization Address [facility] Phone Number [facility] * POCT GLUCOSE LAB USE ONLY (01/06/2012 4:24 PM EST) Glucose, POC 131 60 - 199 mg/dL [facility] Comment: Supplemental ranges: <110 mg/dL before meals <200 mg/dL all other times of the day Blood specimen (specimen) 01/06/2012 4:24 PM EST 01/06/2012 4:24 PM EST Andi Rene MD POINT OF CARE TEST O GILDA Performing Organization Address [facility] Phone Number [facility] * POCT GLUCOSE LAB USE ONLY (01/06/2012 12:06 PM EST) Glucose, POC 160 60 - 199 mg/dL [facility] Comment: Supplemental ranges: <110 mg/dL before meals <200 mg/dL all other times of the day Blood specimen (specimen) 01/06/2012 12:06 PM EST 01/06/2012 12:06 PM EST Andi Rene MD POINT OF CARE TEST O GILDA Performing Organization Address [facility] de Phone Number [facility] * Potassium (01/06/2012 9:59 AM EST) Potassium 4.0 3.5 - 5.0 mmol/L [facility] Comment: Please note: ??Patients with WBC [...] Tovar MD CHEMISTRY ORDERABLES Performing Organization Address [facility] Co de Phone Number [facility] * POCT GLUCOSE LAB USE ONLY (01/06/2012 6:53 AM EST) Glucose, POC 168 60 - 199 mg/dL [facility] Comment: Supplemental ranges: <110 mg/dL before meals <200 mg/dL all other times of the day Blood specimen (specimen) 01/06/2012 6:53 AM EST 01/06/2012 6:53 AM EST Andi Rene MD POINT OF CARE TEST O RDERAHERNANDEZ Performing Organization Address [facility] Phone Number [facility] * POCT GLUCOSE LAB USE ONLY (01/06/2012 5:03 AM EST) Glucose, POC 147 60 - 199 mg/dL [facility] Comment: Supplemental ranges: <110 mg/dL before meals <200 mg/dL all other times of the day Blood specimen (specimen) 01/06/2012 5:03 AM EST 01/06/2012 5:03 AM EST Andi Rene MD POINT OF CARE TEST O RDTYESHA Performing Organization Address [facility] Co de Phone Number [facility] * POCT GLUCOSE LAB USE ONLY (01/06/2012 3:16 AM EST) Glucose, POC 126 60 - 199 mg/dL [facility] Comment: Supplemental ranges: <110 mg/dL before meals <200 mg/dL all other times of the day Blood specimen (specimen) 01/06/2012 3:16 AM EST 01/06/2012 3:16 AM EST Andi Rene MD POINT OF CARE TEST O RDERAHERNANDEZ Performing Organization Address [facility] de Phone Number [facility] * POCT GLUCOSE LAB USE ONLY (01/06/2012 1:12 AM EST) Glucose, POC 135 60 - 199 mg/dL [facility] Comment: Supplemental ranges: <110 mg/dL before meals <200 mg/dL all other times of the day Blood specimen (specimen) 01/06/2012 1:12 AM EST 01/06/2012 1:12 AM EST Anid Rene MD POINT OF CARE TEST O GILDA Performing Organization Address [facility] de Phone Number [facility] * POCT GLUCOSE LAB USE ONLY (01/05/2012 11:52 PM EST) Glucose, POC 133 60 - 199 mg/dL [facility] Comment: Supplemental ranges: <110 mg/dL before meals <200 mg/dL all other times of the day Blood specimen (specimen) 01/05/2012 11:52 PM EST 01/05/2012 11:52 PM EST Andi Rene MD POINT OF CARE TEST O RDERAHERNANDEZ Performing Organization Address [facility] de Phone Number [facility] * POCT GLUCOSE LAB USE ONLY (01/05/2012 10:54 PM EST) Glucose, POC 130 60 - 199 mg/dL [facility] Comment: Supplemental ranges: <110 mg/dL before meals <200 mg/dL all other times of the day Blood specimen (specimen) 01/05/2012 10:54 PM EST 01/05/2012 10:54 PM EST Andi Rene MD POINT OF CARE TEST O RDERAHERNANDEZ Performing Organization Address [facility] de Phone Number [facility] * POCT GLUCOSE LAB USE ONLY (01/05/2012 9:51 PM EST) Glucose, POC 132 60 - 199 mg/[facility] Comment: Supplemental ranges: <110 mg/dL before meals <200 mg/dL all other times of the day Blood specimen (specimen) 01/05/2012 9:51 PM EST 01/05/2012 9:51 PM EST Andi Rene MD POINT OF CARE TEST O GILDA Performing Organization Address [facility] de Phone Number [facility] * POCT GLUCOSE LAB USE ONLY (01/05/2012 8:50 PM EST) Glucose, POC 126 60 - 199 mg/dL [facility] Comment: Supplemental ranges: <110 mg/dL before meals <200 mg/dL all other times of the day Blood specimen (specimen) 01/05/2012 8:50 PM EST 01/05/2012 8:50 PM EST Andi Rene MD POINT OF CARE TEST O GILDA Performing Organization Address [facility] de Phone Number [facility] * POCT GLUCOSE LAB USE ONLY (01/05/2012 8:07 PM EST) Glucose, POC 126 60 - 199 mg/dL [facility] Comment: Supplemental ranges: <110 mg/dL before meals <200 mg/dL all other times of the day Blood specimen (specimen) 01/05/2012 8:07 PM EST 01/05/2012 8:07 PM EST Andi Rene MD POINT OF CARE TEST O RDERAHERNANDEZ Performing Organization Address [facility] Co de Phone Number [facility] * POCT GLUCOSE LAB USE ONLY (01/05/2012 6:57 PM EST) Glucose, POC 137 60 - 199 mg/dL [facility] Comment: Supplemental ranges: <110 mg/dL before meals <200 mg/dL all other times of the day Blood specimen (specimen) 01/05/2012 6:57 PM EST 01/05/2012 6:57 PM EST Andi Rene MD POINT OF CARE TEST O GILDA Performing Organization Address [facility] Co de Phone Number [facility] * POCT GLUCOSE LAB USE ONLY (01/05/2012 4:59 PM EST) Glucose, POC 147 60 - 199 mg/dL [facility] Comment: Supplemental ranges: <110 mg/dL before meals <200 mg/dL all other times of the day Blood specimen (specimen) 01/05/2012 4:59 PM EST 01/05/2012 4:59 PM EST Andi Rene MD POINT OF CARE TEST O GILDA Performing Organization Address [facility] de Phone Number [facility] * POCT GLUCOSE LAB USE ONLY (01/05/2012 1:05 PM EST) Glucose, POC 154 60 - 199 mg/dL [facility] Comment: Supplemental ranges: <110 mg/dL before meals <200 mg/dL all other times of the day Blood specimen (specimen) 01/05/2012 1:05 PM EST 01/05/2012 1:05 PM EST Andi Rene MD POINT OF CARE TEST O GILDA Performing Organization Address [facility] Co de Phone Number [facility] * POCT GLUCOSE LAB USE ONLY (01/05/2012 12:42 PM EST) Glucose, POC 148 60 - 199 mg/dL [facility] Comment: Supplemental ranges: <110 mg/dL before meals <200 mg/dL all other times of the day Blood specimen (specimen) 01/05/2012 12:42 PM EST 01/05/2012 12:42 PM EST Andi Rene MD POINT OF CARE TEST O RDERAHERNANDEZ Performing Organization Address [facility] Co de Phone Number [facility] * POCT GLUCOSE LAB USE ONLY (01/05/2012 9:54 AM EST) Glucose, POC 145 60 - 199 mg/dL [facility] Comment: Supplemental ranges: <110 mg/dL before meals <200 mg/dL all other times of the day Blood specimen (specimen) 01/05/2012 9:54 AM EST 01/05/2012 9:54 AM EST Andi Rene MD POINT OF CARE TEST O GILDA Performing Organization Address [facility] de Phone Number [facility] * POCT GLUCOSE LAB USE ONLY (01/05/2012 8:00 AM EST) Glucose, POC 168 60 - 199 mg/dL [facility] Comment: Supplemental ranges: <110 mg/dL before meals <200 mg/dL all other times of the day Blood specimen (specimen) 01/05/2012 8:00 AM EST 01/05/2012 8:00 AM EST Andi Rene MD POINT OF CARE TEST O DIMITRIERAHERNANDEZ Performing Organization Address [facility] de Phone Number [facility] * POCT GLUCOSE LAB USE ONLY (01/05/2012 5:58 AM EST) Glucose, POC 164 60 - 199 mg/dL [facility] Comment: Supplemental ranges: <110 mg/dL before meals <200 mg/dL all other times of the day Blood specimen (specimen) 01/05/2012 5:58 AM EST 01/05/2012 5:58 AM EST Andi Rene MD POINT OF CARE TEST O RDERABLES Performing Organization Address [facility] Co de Phone Number [facility] * POCT GLUCOSE LAB USE ONLY (01/05/2012 4:12 AM EST) Glucose, POC 148 60 - 199 mg/dL [facility] Comment: Supplemental ranges: <110 mg/dL before meals <200 mg/dL all other times of the day Blood specimen (specimen) 01/05/2012 4:12 AM EST 01/05/2012 4:12 AM EST Andi Rene MD POINT OF CARE TEST O RDERAHERNANDEZ Performing Organization Address [facility] de Phone Number [facility] * POCT GLUCOSE LAB USE ONLY (01/05/2012 2:05 AM EST) Glucose, POC 148 60 - 199 mg/dL [facility] Comment: Supplemental ranges: <110 mg/dL before meals <200 mg/dL all other times of the day Blood specimen (specimen) 01/05/2012 2:05 AM EST 01/05/2012 2:05 AM EST Andi Rene MD POINT OF CARE TEST O RDERABLES Performing Organization Address [facility] de Phone Number [facility] * (ABNORMAL) DIFFERENTIAL, AUTOMATED (01/05/2012 2:00 AM EST) Neutrophil % 79.0(H) 34.0 - 71.0 % [facility] Neutrophil Absolute 19.40(H) 1.50 - 6.30 x10(3)/mc L [facility] MILLENNIUM Lymph % 7.6(L) 19.0 - 53.0 % [facility] MILL[facility]NI[facility] Lymphocytes Abs 1.9 1.0 - 3.6 x10(3)/mc L [facility] Monocyte % 9.0 4.0 - 13.0 % [facility] MILLEN[facility]UM Monocyte Abs 2.2(H) 0.2 - 1.0 [...] EST Sarthak Pollard MD HEMATOLOGY ORDERABLE S ARIAN NELSON * (ABNORMAL) Cardiac Enzymes (01/05/2012 2:00 AM EST) Troponin-T 0.39(H) <=0.03 ng/mL [facility]ILLENNIUM Comment: 0.03 ng/mL: Represents the 99th percentile upper reference limit for normals. >0.03 ng/mL: Elevated cardiac troponin T level indicative of myocardial damage. Diagnosis of acute, evolving or recent MO requires a typical rise and gradual fall [...] Creatine Kinase 436(H) 0 - 200 unit/L [facility] Blood specimen (specimen) 01/05/2012 2:00 AM EST 01/05/2012 2:11 AM EST Narrative Resulting Agency Comment Spec In Lab Sarthak Pollard MD CHEMISTRY ORDERABLES Performing Organization Address [facility] de Phone Number [facility] * Potassium (01/05/2012 2:00 AM EST) Potassium 4.4 3.5 - 5.0 mmol/L [facility] Comment: Please note: ??Patients with WBC [...] Pollard MD CHEMISTRY ORDERABLES Performing Organization Address [facility] Phone Number [facility] * (ABNORMAL) Glucose, fasting (01/05/2012 2:00 AM EST) Glucose Fasting 148(H) 65 - 99 mg/dL [facility] Comment: ?Fasting* Glucose Interpretive Criteria Normal [...] In Lab Sarthak Pollard MD CHEMISTRY ORDERABLES [facility] * Creatinine, serum (01/05/2012 2:00 AM EST) Creatinine 0.86 0.80 - 1.50 mg/dL [facility] [employer] Est Glomerular Filtration Rate >60 >=60 [facility] Comment: The National Kidney Disease Education Program [...] Pollard MD CHEMISTRY ORDERABLES Performing Organization Address [facility] de Phone Number [facility]ER[facility] CAENNI[facility] * BUN (01/05/2012 2:00 AM EST) Blood Urea Nitrogen 10 10 - 20 mg/dL [facility] MILLENNIUM Blood specimen (specimen) 01/05/2012 2:00 AM EST 01/05/2012 2:11 AM EST Narrative Resulting Agency Comment Spec In Lab Sarthak Pollard MD CHEMISTRY ORDERABLES Performing Organization Address [facility] de Phone Number [facility]ERBRIAN MILLENNIUM * [...] MD HEMATOLOGY ORDERABLE S Performing Organization Address City/[facility]/ZIP Co de Phone Number [facility] * POCT GLUCOSE LAB USE ONLY (01/04/2012 11:58 PM EST) Glucose, POC 136 60 - 199 mg/dL [facility] Comment: Supplemental ranges: <110 mg/dL before meals <200 mg/dL all other times of the day Blood specimen (specimen) 01/04/2012 11:58 PM EST 01/04/2012 11:58 PM EST Andi Rene MD POINT OF CARE TEST O RDERABLES Performing Organization Address [facility] Phone Number [facility] * POCT GLUCOSE LAB USE ONLY (01/04/2012 9:00 PM EST) Glucose, POC 143 60 - 199 mg/dL [facility] Comment: Supplemental ranges: <110 mg/dL before meals <200 mg/dL all other times of the day Blood specimen (specimen) 01/04/2012 9:00 PM EST 01/04/2012 9:00 PM EST Andi Rene MD POINT OF CARE TEST O GILDA Performing Organization Address [facility] Phone Number [facility] * GLUCOSE, RANDOM (01/04/2012 9:00 PM EST) Glucose 128 60 - 199 mg/dL [facility] Comment:Diabetes: >=200 mg/d L plus symptoms Blood specimen (specimen) 01/04/2012 9:00 PM EST 01/04/2012 9:08 PM EST Narrative Resulting Agency Comment Spec In Lab Sarthak Pollard MD CHEMISTRY ORDERABLES Performing Organization Address [facility] Phone Number [facility] * (ABNORMAL) Hemoglobin (01/04/2012 9:00 PM EST) Hemoglobin 13.6(L) 13.7 - 17.5 gm/dL [facility] Blood specimen (specimen) 01/04/2012 9:00 PM EST 01/04/2012 9:08 PM EST Narrative Resulting Agency Comment Spec In Lab Sarthak Pollard MD HEMATOLOGY ORDERABLE S Performing Organization Address [facility] Co de Phone Number ARIAN CERDAIUM * Potassium (01/04/2012 9:00 PM EST) Potassium [...] Pollard MD CHEMISTRY ORDERABLES Performing Organization Address [facility] Co de Phone Number [facility] CAENNIUM * (ABNORMAL) BLOOD GAS 2 ARTERIAL (01/04/2012 6:47 PM EST) pH, Arterial 7.33(L) [facility]ERNER MILLENNIUM PCO2, Arterial 47(H) mmHg CERNE R MILLENNIUM PO2, Arterial 109(H) mmHg [facility]ER MILLENNIUM Bicarbonate, Arterial 24.1 mmol/L [facility]ER MILLENNIUM Base Excess, Arterial -1.9 mmol/L [facility]ILL[facility] Hgb Blood Gas 14.1 gm/dL [facility] MILLENNIUM Comment: Total Hemoglobin (in gm/dL) [place] [facility] [place] ranges: ?Age ?Reference Range Less than [...] GAS 2 ARTERIAL (01/04/2012 6:21 PM EST) [facility] pH, Arterial 7.32(L) CERNER MILLENNIUM PCO2, Arterial 49(H) mmHg CERNE R MILLENNIUM PO2, Arterial 100 mmHg [facility]ER MILLENNIUM Bicarbonate, Arterial 25.0 mmol/L [facility] MILLENNIUM Base Excess, Arterial -1.2 mmol/L [facility] MILLENNIUM Hgb Blood Gas 14.1 gm/dL [facility] Comment: Total Hemoglobin (in gm/dL) ?[place] [facility] [place]ematology ranges: ?Age ?Reference Range Less than [...] Comment: Total Hemoglobin (in gm/dL) ?[place] [facility] [place]ematology ranges: ?Age ?Reference Range Less than [...] (Bezet) 455 ms MUSE SYSTEM Calculated P Aneta 48 degrees MUSE SYSTEM Calculated R Aneta 23 degrees MUSE SYSTEM Calculated T Aneta 71 degrees MUSE SYSTEM INTERPRETATION Normal sinus rhythm Normal ECG When compared with ECG of 30-DEC-2011 17:24, Vent. rate has decreased BY ??35 BPM Minimal criteria for Inferior infarct are no longer Present Nonspecific T wave abnormality, improved in Anterolateral leads Confirmed by fellow MD Steve, Luca ([id number]) on 01/05/2012 10:22:57 AM Confirmed by MD [...] mmHg [facility]ER MILLENNIUM Comment: Noted by electrical instrument technician. MTF PO2, Arterial 145(H) mmHg [facility]ERNER MILLENNIUM Bicarbonate, Arterial 25.5 mmol/L [facility]ER MILLENNIUM Base Excess, Arterial -0.7 mmol/L [facility] MILLENNIUM Hgb Blood Gas 11.1(L) gm/dL [facility] MILLENNIUM Comment: Total Hemoglobin (in gm/dL) ?[place] [facility] [place]ematology ranges: ?Age ?Reference Range Less than [...] CARE TEST O RDERABLES Performing Organization Address [facility] de Phone Number [facility] * THROMBIN TIME (01/04/2012 3:28 PM EST) Thrombin Time 17 15 - [address] [facility] Blood specimen (specimen) 01/04/2012 3:28 PM EST 01/04/2012 3:28 PM EST Narrative Resulting Agency Comment Spec In Lab Sarthak Pollard MD HEMATOLOGY ORDERABLE S Performing Organization Address [facility] de Phone Number [facility] * FIBRINOGEN (01/04/2012 3:28 PM EST) Fibrinogen 364 200 - 470 mg/dL [facility] MILLENNIUM Comment:Called by: Monika, Read back by: AKANKSHA SAMPSON, Date/Time:01/04/12 15:45. Blood specimen (specimen) 01/04/2012 3:28 PM EST 01/04/2012 3:28 PM EST Narrative Resulting Agency Comment Spec In Lab Sarthak Pollard MD HEMATOLOGY ORDERABLE S Performing Organization Address [facility] Co de Phone Number ARIAN CERDAIUM * APTT (01/04/2012 3:28 PM EST) Partial Thromboplastin Time 30 25 - 35 sec [facility]ERBRIAN MILLENNIUM Comment: Recommended therapeutic PTT range for full dose unfractionated heparin is 80-114 seconds. Blood specimen (specimen) 01/04/2012 3:28 PM EST 01/04/2012 3:28 PM EST Narrative Resulting Agency Comment Spec In Lab Sarthak Pollard MD HEMATOLOGY ORDERABLE S Performing Organization Address [facility] de Phone Number ARIAN CAENNIUM * (ABNORMAL) PROTHROMBIN TIME (01/04/2012 3:28 PM EST) Prothrombin Time 17.8(H) 11.9 - 14.7 sec [facility]ERBRIAN MILLENNIUM Comment: [facility] Transfusion Committee Guidelines: INR less than 2.0, PTT less than OR equal to 43.5 seconds, or Fibrinogen greater than or equal to 100 mg/dl indicate adequate procoagulant activity for hemostasis in patients without underlying bleeding disorders. International Normalization Ratio 1.4(H) 0.9 - 1.1 ARIAN ROBYENNIUM Blood specimen (specimen) 01/04/2012 3:28 PM EST 01/04/2012 3:28 PM EST Narrative Resulting Agency Comment Spec In Lab Sarthak Pollard MD HEMATOLOGY ORDERABLE S Performing Organization Address [facility] Co de Phone Number [facility]AN CAENNIUM * [...] mmHg [facility]ER MILLENNIUM Comment: Noted by electrical instrument technician. MTF PO2, Arterial 296(H) mmHg CERNER MILLENNIUM Bicarbonate, Arterial 26.3(H) mmol/L [facility]ERNER MILLENNIUM Base Excess, Arterial 0.1 mmol/L [facility]ER MILLENNIUM Hgb Blood Gas 10.2(L) gm/dL [facility]ER MILLENNIUM Comment: Total Hemoglobin (in gm/dL) ?[place] [facility] [place]emat[place] ranges: ?Age ?Reference Range Less than [...] CARE TEST O RDERABLES Performing Organization Address [facility] Co de Phone Number CERBRIAN CAENNIUM * FIBRINOGEN (01/04/2012 2:25 PM EST) Fibrinogen 356 200 - 470 mg/dL CERNER MILLENNIUM Comment:Called by: LEILANI, Read back by: AKANKSHA CAMILLA, Date/Time:01/04/12 14:49. Blood specimen (specimen) 01/04/2012 2:25 PM EST 01/04/2012 2:32 PM EST Narrative Resulting Agency Comment Spec In Lab Sarthak Pollard MD HEMATOLOGY ORDERABLE S Performing Organization Address [facility] de Phone Number CERBRIAN CAENNIUM * PLATELET COUNT (01/04/2012 2:25 PM EST) Platelet 281 145 - 370 x10(3)/mcL CERNER MILLENNIUM Blood specimen (specimen) 01/04/2012 2:25 PM EST 01/04/2012 2:32 PM EST Narrative Resulting Agency Comment Spec In Lab Sarthak Pollard MD HEMATOLOGY ORDERABLE S Performing Organization Address [facility] de Phone Number CERNER MILLENNIUM * (ABNORMAL) BLOOD GAS 2 ARTERIAL (01/04/2012 12:59 PM EST) pH, Arterial 7.36 CERNER MILLENNIUM PCO2, Arterial 48(H) mmHg CERNE R MILLENNIUM PO2, Arterial 197(H) mmHg CERNER MILLENNIUM Bicarbonate, Arterial 26.7(H) mmol/L CERNER MILLENNIUM Base Excess, Arterial 1.3 mmol/L CERNER MILLENNIUM Hgb Blood Gas 13.9 gm/dL CERNER MILLENNIUM Comment: Total Hemoglobin (in gm/dL) ?[place] [facility] [place]ematology ranges: ?Age ?Reference Range Less than [...] (01/04/2012 12:05 PM EST) Dispensed? Yes ARIAN NELSON Blood specimen (specimen) 01/04/2012 12:05 PM EST 01/04/2012 12:01 PM EST Narrative Resulting Agency Comment Spec In Lab Inna Tovar MD BLOOD BANK PRODUCT O RDERABLES ARIAN NELSON * Prepare RBC (01/04/2012 12:05 PM EST) Dispensed? Yes ARIAN NELSON Blood specimen (specimen) 01/04/2012 12:05 PM EST 01/04/2012 12:01 PM EST Narrative Resulting Agency Comment Spec In Lab Inna Tovar MD BLOOD BANK PRODUCT O RDERABLES ARIAN CERDAIUM * (ABNORMAL) DIFFERENTIAL, MANUAL (01/04/2012 4:40 AM [...] 0.0 - 0.2 x10(3)/mc L CERNER MILLENNIUM [place] Absolute Manual 0.3(H) 0.0 - 0.0 x10(3)/mc [...] HEMATOLOGY ORDERABLE S ARIAN CERDAIUM * (ABNORMAL) BMP w/fasting Glucose (01/04/2012 4:40 [...] Rene MD CHEMISTRY ORDERABLES Performing Organization Address [facility]/ZIP Co de Phone Number CERNER ROBYENNIUM * (ABNORMAL) CBC (with Diff) (01/04/2012 4:40 [...] MD HEMATOLOGY ORDERABLE S Performing Organization Address City/[facility]/ZIP Co de Phone Number ARIAN CERDAIUM * (ABNORMAL) APTT (01/04/2012 4:40 AM EST) Partial Thromboplastin Time 103(H) 25 - 35 sec CERNER MILLENNIUM Comment: Recommended therapeutic PTT range for full dose unfractionated heparin is 80-114 seconds. Blood specimen (specimen) 01/04/2012 4:40 AM EST 01/04/2012 4:52 AM EST Narrative Resulting Agency Comment Spec In Lab Sarthak Pollard MD HEMATOLOGY ORDERABLE S Performing Organization Address City/[facility]/ZIP Co de Phone Number CERNER MILLENNIUM * (ABNORMAL) APTT (01/03/2012 7:38 PM EST) Partial Thromboplastin Time 98(H) 25 - 35 sec CERNER MILLENNIUM Comment: Recommended therapeutic PTT range for full dose unfractionated heparin is 80-114 seconds. Blood specimen (specimen) 01/03/2012 7:38 PM EST 01/03/2012 7:53 PM EST Narrative Resulting Agency Comment Spec In Lab Sarthak Pollard MD HEMATOLOGY ORDERABLE S Performing Organization Address [facility] Co de Phone Number CERNER [...] MD HEMATOLOGY ORDERABLE S Performing Organization Address [facility] Co de Phone Number CERNER [...] Pollard MD BLOOD BANK LAB ORDER RANDELL CERNER ROBYENNIUM * ABO/RH TYPING (01/03/2012 6:15 AM EST) ABORH Type A Pos CERNER MILLENNIUM Blood specimen (specimen) 01/03/2012 6:15 AM EST 01/03/2012 6:35 AM EST Narrative Resulting Agency Comment Spec In Lab Sarthak Pollard MD BLOOD BANK LAB ORDER RANDELL ARIAN NELSON * (ABNORMAL) APTT (01/03/2012 6:15 AM EST) Partial Thromboplastin Time 96(H) 25 - 35 sec [facility] Comment: Recommended therapeutic PTT range for full dose unfractionated heparin is 80-114 seconds. Blood specimen (specimen) 01/03/2012 6:15 AM EST 01/03/2012 6:23 AM EST Narrative Resulting Agency Comment Spec In Lab Sarthak Pollard MD HEMATOLOGY ORDERABLE S Performing Organization Address City/[facility]/ZIP Co de Phone Number ARIAN NELSON * (ABNORMAL) BMP w/fasting Glucose (01/03/2012 6:15 AM EST) Glucose Fasting 116(H) 65 - 99 mg/dL [facility] Comment: ?Fasting* Glucose Interpretive Criteria Normal [...] Cell 12.0(H) 4.0 - 10.0 x10(3)/mc L [facility] M[facility] Red Blood Cell 4.68 4.63 - 6.08 x10(6)/mc L [facility] M[facility] Hemoglobin 14.1 13.7 - 17.5 gm/dL [facility] M[facility] Hematocrit 40.8 40.0 - 51.0 % CERNER MILLENNIUM Mean Cell Volume 87.2 79.0 - 92.0 fL [facility] Mean Cell Hemoglobin 30.1 25.6 - 32.2 pg CERNER MILLENNIUM Mean Cell Hemoglobin Concentration 34.6 32.0 - 36.5 gm/dL [facility] M[facility] Platelet 295 145 - 370 x10(3)/mc L [facility] M[facility] RDW Standard Deviation 40.5 35.0 - 46.0 fL [facility] M[facility] RDW coefficient of variation 12.6 10.9 - 14.4 % [facility] M[facility] Mean Platelet Volume 9.9 9.0 - 12.0 fL [facility] MILLENNIUM Blood specimen (specimen) 01/03/2012 6:15 AM EST 01/03/2012 6:23 AM EST Narrative Resulting Agency Comment Spec In Lab Remigio Ceron MD HEMATOLOGY ORDERABLE S Performing Organization Address [facility] de Phone Number [facility] * (ABNORMAL) APTT (01/02/2012 11:21 PM EST) Partial Thromboplastin Time 69(H) 25 - 35 sec [facility] Comment: Recommended therapeutic PTT range for full dose unfractionated heparin is 80-114 seconds. Blood specimen (specimen) 01/02/2012 11:21 PM EST 01/02/2012 11:24 PM EST Narrative Resulting Agency Comment Spec In Lab Sarthak Pollard MD HEMATOLOGY ORDERABLE S Performing Organization Address [facility] Co de Phone Number [facility] * (ABNORMAL) APTT (01/02/2012 5:32 PM EST) Partial Thromboplastin Time 53(H) 25 - 35 sec [facility] Comment: Recommended therapeutic PTT range for full dose unfractionated heparin is 80-114 seconds. Blood specimen (specimen) 01/02/2012 5:32 PM EST 01/02/2012 5:38 PM EST Narrative Resulting Agency Comment Spec In Lab Sarthak Pollard MD HEMATOLOGY ORDERABLE S CERNER MILLENNIUM * (ABNORMAL) APTT (01/02/2012 11:56 AM EST) Partial Thromboplastin Time 46(H) 25 - 35 sec CERNER MILLENNIUM Comment: Recommended therapeutic PTT range for full dose unfractionated heparin is 80-114 seconds. Blood specimen (specimen) 01/02/2012 11:56 AM EST 01/02/2012 12:05 PM EST Narrative Resulting Agency Comment Spec In Lab Sarthak Pollard MD HEMATOLOGY ORDERABLE S Performing Organization Address City/[facility]/ZIP Co de Phone Number CERNER MILLENNIUM * (ABNORMAL) DIFFERENTIAL, AUTOMATED (01/02/2012 6:02 AM [...] Gran % 1.00(H) 0.00 - 0.66 % [facility] Comment: Immature granulocytes(IG's)percentage and absolute count will include metamyelocytes, myelocytes, and promyelocytes. Blood smears from CBCs yielding IG's will be scanned manually for concordance. If this scan disagrees with the automated IG or if promyelocytes are noted, a manual differential will be performed. Immature Gran Absolute 0.10(H) 0.00 - 0.05 x10(3)/mc L [facility] Blood specimen (specimen) 01/02/2012 6:02 AM EST 01/02/2012 6:29 AM EST Remigio Ceron MD HEMATOLOGY ORDERABLE S Performing Organization Address [facility] Co de Phone Number [facility] * (ABNORMAL) APTT (01/02/2012 6:02 AM EST) Partial Thromboplastin Time 42(H) 25 - 35 sec [facility] Comment: Recommended therapeutic PTT range for full dose unfractionated heparin is 80-114 seconds. Blood specimen (specimen) 01/02/2012 6:02 AM EST 01/02/2012 6:29 AM EST Narrative Resulting Agency Comment Spec In Lab Sarthak Pollard MD HEMATOLOGY ORDERABLE S Performing Organization Address [facility] de Phone Number [facility] * (ABNORMAL) BMP w/fasting Glucose (01/02/2012 6:02 AM EST) Glucose Fasting 113(H) 65 - 99 mg/dL [facility] Comment: ?Fasting* Glucose Interpretive Criteria Normal [...] S CERBRIAN CAENNIUM * (ABNORMAL) APTT (01/02/2012 12:23 AM [...] HEMATOLOGY ORDERABLE S ARIAN CERDAIUM * APTT (01/01/2012 6:37 PM EST) Partial Thromboplastin Time 32 25 - 35 sec CERNER MILLENNIUM Comment: Recommended therapeutic PTT range for full dose unfractionated heparin is 80-114 seconds. Blood specimen (specimen) 01/01/2012 6:37 PM EST 01/01/2012 6:43 PM EST Narrative Resulting Agency Comment Spec In Lab Sarthak Pollard MD HEMATOLOGY ORDERABLE S Performing Organization Address [facility] Phone Number [facility] * POCT GLUCOSE LAB USE ONLY (01/01/2012 12:02 PM EST) Glucose, POC 99 60 - 199 mg/dL [facility] Comment: Supplemental ranges: <110 mg/dL before meals <200 mg/dL all other times of the day Blood specimen (specimen) 01/01/2012 12:02 PM EST 01/01/2012 12:02 PM EST Andi Rene MD POINT OF CARE TEST O RDERABLES Performing Organization Address [facility] Phone Number [facility] * (ABNORMAL) APTT (01/01/2012 11:59 AM EST) Partial Thromboplastin Time 108(H) 25 - 35 sec [facility] Comment: Recommended therapeutic PTT range for full dose unfractionated heparin is 80-114 seconds. Blood specimen (specimen) 01/01/2012 11:59 AM EST 01/01/2012 12:06 PM EST Narrative Resulting Agency Comment Spec In Lab Andi Rene MD HEMATOLOGY ORDERABLE S Performing Organization Address [facility] Phone Number [facility] * XR chest routine PA & [...] ORDERABLE S ARIAN NELSON * (ABNORMAL) APTT (01/01/2012 5:19 AM EST) Partial Thromboplastin Time 105(H) 25 - 35 sec CERBRIAN MILLYARYIUM Comment: Recommended therapeutic PTT range for full dose unfractionated heparin is 80-114 seconds. Blood specimen (specimen) 01/01/2012 5:19 AM EST 01/01/2012 5:36 AM EST Narrative Resulting Agency Comment Spec In Lab Remigio Ceron MD HEMATOLOGY ORDERABLE S ARIAN NELSON * (ABNORMAL) BMP w/fasting Glucose (01/01/2012 5:19 AM EST) Glucose Fasting 121(H) 65 - 99 mg/dL [facility] Comment: ?Fasting* Glucose Interpretive Criteria Normal [...] MD HEMATOLOGY ORDERABLE S Performing Organization Address City/[facility]/ZIP Co de Phone Number ARIAN CERDAIUM * (ABNORMAL) APTT (12/31/2011 11:01 PM EST) Partial Thromboplastin Time 72(H) 25 - 35 sec CERNER MILLENNIUM Comment: Recommended therapeutic PTT range for full dose unfractionated heparin is 80-114 seconds. Blood specimen (specimen) 12/31/2011 11:01 PM EST 12/31/2011 11:18 PM EST Narrative Resulting Agency Comment Spec In Lab Andi Rene MD HEMATOLOGY ORDERABLE S Performing Organization Address City/[facility]/ZIP Co de Phone Number [facility] PRASHANTIUM * Upper Respiratory Culture Throat (12/31/2011 9:55 PM EST) Upper Respiratory Culture ? Patient Name: ZACK HEART, GEOVANNA Llanos ? Ordered By: ANDI RENE ? MR#: [id number] ?LOC: ??[facility] ? /Sex: ??1975 (36 years), ? Male ? PROCEDURE: Upper Respiratory Culture ?SOURCE: Throat ? COLLECTED: 12/31/2011 21:55 ? STARTED: 12/31/2011 22:16 ? FINAL REPORT ? Final Report ? Verified:2011 08:12 ? Beta Hemolytic Streptococci, Group A isolated ? PRELIMINARY REPORT ? Preliminary Report ? Verified:2011 09:46 ? Beta Hemolytic Streptococci, Group A isolated ? ARIAN NELSON Specimen from throat (specimen) 12/31/2011 9:55 PM EST 12/31/2011 10:16 PM EST Narrative Resulting Agency Comment Spec In Lab Andi Rene MD MICROBIOLOGY - GENER AL ORDERABLES ARIAN NELSON * (ABNORMAL) APTT (12/31/2011 4:34 PM EST) Partial Thromboplastin Time 66(H) 25 - 35 sec ARIAN NELSON Comment: Recommended therapeutic PTT range for full dose unfractionated heparin is 80-114 seconds. Blood specimen (specimen) 12/31/2011 4:34 PM EST 12/31/2011 4:39 PM EST Narrative Resulting Agency Comment Spec In Lab Andi Rene MD HEMATOLOGY ORDERABLE S [facility]AN [facility] * Duplex Study for DVT, Bilat legs (12/31/2011 11:07 AM EST) VB Text Report Department: Vascular Surgery Lab Patient: [id number] (GEOVANNA DIXON) CPT Code: 26201 ICD-9: 780.6 Referring Physician: ANDI RENE Indication: [...] EST) Smear Review Report ? [facility] ? Provider: ?? ANDI RENE ?Pt. Name: ?? GEOVANNA DIXON JR ? Acc #: ?[id number] ? Pt. ? Col Date: ?? 12/31/2011 [...] correlation is indicated. ? Dictated by: ??Katrin Chakraboryt MD ? Hematopathology Fellow ? As the [...] Lab Andi Rene MD HEMATOLOGY ORDERABLE S [facility] ROBYENNIUM * Lactate Dehydrogenase (12/31/2011 9:44 AM EST) Lactate Dehydrogenase 123 110 - 220 unit/L CERNER MILLENNIUM Blood specimen (specimen) 12/31/2011 9:44 AM EST 12/31/2011 10:12 AM EST Narrative Resulting Agency Comment Spec In Lab Andi Rene MD CHEMISTRY ORDERABLES ARIAN CERDAIUM * Peripheral Smear Review (12/31/2011 9:44 AM EST) Peripheral Smear Review See Comment CERNER MILLENNIUM Comment: When completed by the Pathologist, report [id number] will display under Hematology Reports. Blood specimen (specimen) 12/31/2011 9:44 AM EST 12/31/2011 10:12 AM EST Narrative Resulting Agency Comment Spec In Lab Andi Rene MD HEMATOLOGY ORDERABLE S Performing Organization Address City/[facility]/ZIP Co de Phone Number ARIAN CERDAIUM * (ABNORMAL) APTT (12/31/2011 9:44 AM EST) Partial Thromboplastin Time 50(H) 25 - 35 sec CERNER MILLENNIUM Comment: Recommended therapeutic PTT range for full dose unfractionated heparin is 80-114 seconds. Blood specimen (specimen) 12/31/2011 9:44 AM EST 12/31/2011 10:12 AM EST Narrative Resulting Agency Comment Spec In Lab Andi Rene MD HEMATOLOGY ORDERABLE S Performing Organization Address City/[facility]/ZIP Co de Phone Number ARIAN CERDAIUM * (ABNORMAL) DIFFERENTIAL, AUTOMATED (12/31/2011 3:38 AM [...] Gran % 0.40 0.00 - 0.66 % [facility] MILLENNIUM Comment: Immature granulocytes(IG's)percentage and absolute count will include metamyelocytes, myelocytes, and promyelocytes. Blood smears from CBCs yielding IG's will be scanned manually for concordance. If this scan disagrees with the automated IG or if promyelocytes are noted, a manual differential will be performed. Immature Gran Absolute 0.08(H) 0.00 - 0.05 x10(3)/mc L [facility] MILLENNIUM Blood specimen (specimen) 12/31/2011 3:38 AM EST 12/31/2011 3:50 AM EST Remigio Ceron MD HEMATOLOGY ORDERABLE S Performing Organization Address [facility]/ZIP Co de Phone Number [facility] * (ABNORMAL) APTT (12/31/2011 3:38 AM EST) Partial Thromboplastin Time 47(H) 25 - 35 sec [facility] Comment: Recommended therapeutic PTT range for full dose unfractionated heparin is 80-114 seconds. Blood specimen (specimen) 12/31/2011 3:38 AM EST 12/31/2011 3:50 AM EST Narrative Resulting Agency Comment Spec In Lab Andi Rene MD HEMATOLOGY ORDERABLE S Performing Organization Address [facility]/ZIP Co de Phone Number [facility] * (ABNORMAL) BMP w/fasting Glucose (12/31/2011 3:38 AM EST) Glucose Fasting 114(H) 65 - 99 mg/dL [facility] Comment: ?Fasting* Glucose Interpretive Criteria Normal [...] MD HEMATOLOGY ORDERABLE S Performing Organization Address [facility] de Phone Number [facility] * (ABNORMAL) APTT (12/30/2011 9:02 PM EST) Partial Thromboplastin Time 37(H) 25 - 35 sec [facility] Comment: Recommended therapeutic PTT range for full dose unfractionated heparin is 80-114 seconds. Blood specimen (specimen) 12/30/2011 9:02 PM EST 12/30/2011 9:10 PM EST Narrative Resulting Agency Comment Spec In Lab Andi Rene MD HEMATOLOGY ORDERABLE S Performing Organization Address [facility] de Phone Number [facility] * EKG 12 Lead (12/30/2011 5:24 PM EST) Ventricular rate 107 BPM MUSE SYSTEM Atrial Rate 107 BPM MUSE SYSTEM P-R Interval 160 ms MUSE SYSTEM QRS Duration 104 ms MUSE SYSTEM Q-T Interval 310 ms MUSE SYSTEM QTC Calculated (Bezet) 413 ms MUSE SYSTEM Calculated P Aneta 24 degrees MUSE SYSTEM Calculated R Aneta 25 degrees MUSE SYSTEM Calculated T Aneta 54 degrees MUSE SYSTEM INTERPRETATION Sinus tachycardia Cannot rule out Inferior infarct , age undetermined Nonspecific T wave abnormality Abnormal ECG When compared with ECG of 29-DEC-2011 23:13, No significant change was found Confirmed by MD VAIBHAV, SARTHAK ([id number]) on 12/31/2011 10:51:02 AM MUSE SYSTEM 12/30/2011 5:24 PM EST 12/31/2011 10:51 AM EST Andi Rene MD ECG ORDERABLES Performing Organization Address [facility] de Phone Number MUSE SYSTEM * Blood culture (12/30/2011 5:04 PM EST) Blood Culture ? Patient Name: GEOVANNA DIXON JR ?Ordered By: ANDI RENE ? MR#: [id number] ?LOC: ??[facility] ? /Sex: ??1975 (36 years), ? Male ? PROCEDURE: Blood Culture ?SOURCE: Blood ? COLLECTED: 12/30/2011 17:04 ?FREE TEXT SOURCE: LAC ? STARTED: 12/30/2011 17:31 ? FINAL REPORT ? Final Report ? Verified:2011 15:07 ? No growth at 5 days. ? PRELIMINARY REPORT ? Preliminary Report ? Verified:2011 23:07 ? No growth at 4 days. ? ARIAN CERDAIUM Blood specimen (specimen) 12/30/2011 5:04 PM EST 12/30/2011 5:31 PM EST Narrative Resulting Agency Comment Spec In Lab Andi Rene MD MICROBIOLOGY - BLOOD ORDERABLES ARIAN CAENNIUM * Blood culture (12/30/2011 4:51 PM EST) Blood Culture ? Patient Name: ZACK REYNA, GEOVANNA Llanos ?Ordered By: ANDI RENE ? MR#: [id number] ?LOC: ??[facility] ? /Sex: ??1975 (36 years), [...] Rene MD MICROBIOLOGY - BLOOD ORDERABLES ARIAN MILLENNIUM * (ABNORMAL) DIFFERENTIAL, AUTOMATED (12/30/2011 4:25 [...] 4:25 PM EST) Ab Screen Interp Negative CERNER ROBYENNIUM Expires at [phone] on: [id number] CERNER MILLENNIUM Blood specimen (specimen) 12/30/2011 4:25 PM EST 12/30/2011 4:36 PM EST Narrative Resulting Agency Comment Spec In Lab Andi Rene MD BLOOD BANK LAB ORDER RANDELL ARIAN CERDAIUM * ABO/RH TYPING (12/30/2011 4:25 PM EST) ABORH Type A Pos CERNER MILLENNIUM Blood specimen (specimen) 12/30/2011 4:25 PM EST 12/30/2011 4:36 PM EST Narrative Resulting Agency Comment Spec In Lab Andi Rene MD BLOOD BANK LAB ORDER RANDELL ARIAN CAENNIUM * Glucose, random (12/30/2011 4:25 PM EST) Glucose 126 60 - 199 mg/dL CERNER MILLENNIUM Comment:Diabetes: >=200 mg/d L plus symptoms Blood specimen (specimen) 12/30/2011 4:25 PM EST 12/30/2011 4:43 PM EST Narrative Resulting Agency Comment Spec In Lab Andi Rene MD CHEMISTRY ORDERABLES Performing Organization Address City/[facility]/ZIP Co de Phone Number CERBRIAN CAENNIUM [...] MD HEMATOLOGY ORDERABLE S Performing Organization Address City/[facility]/ZIP Co de Phone Number ARIAN NELSON * APTT (12/30/2011 2:08 PM EST) Partial Thromboplastin Time 31 25 - 35 sec [facility] Comment: Recommended therapeutic PTT range for full dose unfractionated heparin is 80-114 seconds. Blood specimen (specimen) 12/30/2011 2:08 PM EST 12/30/2011 2:27 PM EST Narrative Resulting Agency Comment Spec In Lab Andi Rene MD HEMATOLOGY ORDERABLE S Performing Organization Address [facility] Co de Phone Number ARIAN NELSON * Cardiac Enzymes (12/30/2011 2:08 PM EST) Troponin-T 0.03 <=0.03 ng/mL [facility] Comment: 0.03 ng/mL: Represents the 99th percentile upper reference limit for normals. >0.03 ng/mL: Elevated cardiac troponin T level indicative of myocardial damage. Diagnosis of acute, evolving or recent MO requires a typical rise and gradual fall [...] Creatine Kinase 72 0 - 200 unit/L [facility] Blood specimen (specimen) 12/30/2011 2:08 PM EST 12/30/2011 2:27 PM EST Narrative Resulting Agency Comment Spec In Lab Remigio Ceron MD CHEMISTRY ORDERABLES [facility] * HIV (12/30/2011 10:18 AM EST) Pathologist [facility] HIV 1/2 Ab Negative [facility] Blood specimen (specimen) 12/30/2011 10:18 AM EST 12/30/2011 10:28 AM EST Narrative Resulting Agency Comment Spec In Lab Andi Rene MD CHEMISTRY ORDERABLES Performing Organization Address [facility] Co de Phone Number [facility] * Echo Transthoracic (Complete) (12/30/2011 9:47 AM EST) [facility] EF 55 HEARTLAB SYSTEM Anatomical Region Laterality Modality Other 12/30/2011 Narrative 12/30/2011 10:02 AM EST Procedure: ? Transthoracic Echocardiogram Patient: ? ZACK AUSTIN P ?(Age): 1975(36) Med Rec#: ?[id number] ? Sex: ?M ? Site Loc[facility] ? Ht / Wt: ??180(cm)/124(kg) Pt. Loc: ? Adult Floor ?BSA: ?2.41 Study Date: ?12/30/2011 ? Pt. Type: Inpatient Tape: ? Referring: Remigio Ceron Garment Finisher: Benjamin Lundberg Diagnosis: ??Chest pain (786.50) CPT Code(s): ??Spectral Doppler (69819), ??Color Doppler (00341), ??Echo Full (15105), Indication(s): ??Chest Pain Rhythm: HR ?BP ?106/60 [...] Images reviewed and interpretation verified [facility] Cardiac Ultrasound Laboratory Procedure Note Zak Coley MD - 12/30/2011 Procedure: Transthoracic Echocardiogram Patient: ZACK Llanos DOB(Age): 1975(36) Med Rec#: [id number] Sex: M Site Loc: [facility] Ht / Wt: 180(cm)/124(kg) Pt. Loc: Adult Floor BSA: 2.41 Study Date: 12/30/2011 Pt. Type: Inpatient Tape: Referring: Remigio Ceron Garment Finisher: Benjamin Lundberg Diagnosis: Chest pain (786.50) CPT Code(s): Spectral Doppler (73812), Color Doppler (68021), Echo Full (90158), Indication(s): Chest Pain Rhythm: HR BP 106/60 [...] Images reviewed and interpretation verified [facility] Cardiac Ultrasound Laboratory Remigio Ceron MD ECHO [...] Urine Dipstick Clear Clear CERNER MILLENNIUM Specific [place] Urine Automated 1.019 1.002 - 1.030 CERNER [...] MILLENNIUM * Rapid Qual Drug Screen, Urine ([facility] (12/30/2011 9:32 AM EST) U IVAN Screen [...] testing device is being used in the [facility] Chemistry Laboratory. Please contact the chemistry laboratory at [phone] with questions. Urine specimen (specimen) 12/30/2011 9:32 AM EST 12/30/2011 9:45 AM EST Narrative Resulting Agency Comment Spec In Lab Andi Rene MD URINE ORDERABLES [facility] * Urine culture Clean Catch Urine (12/30/2011 9:31 AM EST) Urine Culture ? Patient Name: GEOVANNA DIXON JR ?Ordered By: ANDI RENE ? MR#: [id number] ?LOC: ??[facility] ? /Sex: ?? 4 (36 [...] Spec In Lab Andi S Anju DE MICROBIOLOGY - GENER AL ORDERABLES CERNER MILLENNIUM [...] MD HEMATOLOGY ORDERABLE S Performing Organization Address [facility] Co de Phone Number [facility] * (ABNORMAL) CBC (with Diff) (12/30/2011 [...] MD HEMATOLOGY ORDERABLE S Performing Organization Address [facility] Co de Phone Number ARIAN CERDAIUM * [...] into estimated average glucose values. ??Diabetes Care 2008:31(8):2783-1141. Blood specimen (specimen) 12/30/2011 7:07 AM EST 12/30/2011 7:18 AM EST Narrative Resulting Agency Comment Spec In Lab Remigio Ceron MD CHEMISTRY ORDERABLES Performing Organization Address [facility] Co de Phone Number [employer] [facility] [employer] * (ABNORMAL) APTT (12/30/2011 5:45 AM EST) Partial Thromboplastin Time 45(H) 25 - 35 sec CERBRIAN MILLYARYIUM Comment: Recommended therapeutic PTT range for full dose unfractionated heparin is 80-114 seconds. Blood specimen (specimen) 12/30/2011 5:45 AM EST 12/30/2011 6:10 AM EST Narrative Resulting Agency Comment Spec In Lab Andi Rene MD HEMATOLOGY ORDERABLE S Performing Organization Address [facility] de Phone Number CERBRIAN [employer] * (ABNORMAL) Glucose, fasting (12/30/2011 5:45 AM EST) Glucose Fasting 108(H) 65 - 99 mg/dL [facility] Comment: ?Fasting* Glucose Interpretive Criteria Normal [...] Ceron MD CHEMISTRY ORDERABLES Performing Organization Address [facility] de Phone Number [facility] * (ABNORMAL) Triglyceride (12/30/2011 5:45 AM EST) Triglyceride 245(H) <=149 mg/dL [facility] Comment: Reference Range: Normal triglycerides: ??<150 mg/dL Borderline high: ??150-199 mg/dL High: ??200-499 mg/dL Very high: ??>uu=627 mg/dL ELISEO 2001; 285(19):[id number] Blood specimen (specimen) 12/30/2011 5:45 AM EST 12/30/2011 6:10 AM EST Narrative Resulting Agency Comment Spec In Lab Remigio Ceron MD CHEMISTRY ORDERABLES Performing Organization Address [facility] de Phone Number [facility] * (ABNORMAL) HDL/Cholesterol Profile (12/30/2011 5:45 AM EST) Cholesterol, Total 170 <=199 mg/dL [facility] Comment: Recommendations of the NCEP Adult Treatment Panel for the following risk cutoff thresholds for the [place] population: Desirable: <200 mg/dL Borderline High: 200-239 mg/dL High: > or = 240 mg/dL HDL Cholesterol 36(L) >=40 mg/dL [facility] Comment: Reference range: ??Low HDL: ?? < 40 mg/dL ??Normal: ?40-60 mg/dL ??Desirable: > 60 mg/dL ELISEO 2001; 285(19):6645-6413 Cholesterol/HDL Ratio 4.7 ratio [facility] Comment: A Cholesterol to HDL ratio [...] In Lab Remigio Ceron MD CHEMISTRY ORDERABLES [facility] * (ABNORMAL) LDL Cholesterol, Direct (12/30/2011 5:45 AM EST) LDL Cholesterol, Direct 110(H) <=99 mg/dL [facility] Comment: The National Cholesterol Education Program (NCEP) has set the following guidelines for LDL Cholesterol: Reference range: ?? Optimal: ?<100 mg/dL ?? Near Optimal/Above Optimal: ?? 100-129 mg/dL ?? Borderline high: ?130-159 mg/dL ?? High: ? 160-189 mg/dL ?? Very high: ?>vc=446 mg/dL ELISEO 2001: 285(55):[id number] Blood specimen (specimen) 12/30/2011 5:45 AM EST 12/30/2011 6:10 AM EST Narrative Resulting Agency Comment Spec In Lab Remigio Ceron MD CHEMISTRY ORDERABLES Performing Organization Address [facility] de Phone Number ARIAN NELSON * (ABNORMAL) Cardiac Enzymes (12/30/2011 5:45 AM EST) Troponin-T 0.05(H) <=0.03 ng/mL ARIAN NELSON Comment: 0.03 ng/mL: Represents the 99th percentile upper reference limit for normals. >0.03 ng/mL: Elevated cardiac troponin T level indicative of myocardial damage. Diagnosis of acute, evolving or recent MO requires a typical rise and gradual fall [...] Ceron MD CHEMISTRY ORDERABLES Performing Organization Address [facility] de Phone Number ARIAN NELSON * XR [...] PERIPHERAL BLOOD (12/29/2011 11:29 PM EST) Pathologist [facility] Plat estimate Normal CERNER MILLENNIUM RBC Morphology Normal CERNE R MILLENNIUM Blood specimen (specimen) 12/29/2011 11:29 PM EST 12/29/2011 11:35 PM EST Narrative Resulting Agency Comment Spec In Lab Remigio Ceron MD HEMATOLOGY ORDERABLE S ARIAN CERDAIUM * (ABNORMAL) DIFFERENTIAL, AUTOMATED (12/29/2011 11:29 PM [...] S ARIAN NELSON * (ABNORMAL) Cardiac Enzymes (12/29/2011 11:29 PM EST) Troponin-T 0.08(H) <=0.03 ng/mL CERNER MILLENNIUM Comment: 0.03 ng/mL: Represents the 99th percentile upper reference limit for normals. >0.03 ng/mL: Elevated cardiac troponin T level indicative of myocardial damage. Diagnosis of acute, evolving or recent MO requires a typical rise and gradual fall [...] Ceron MD CHEMISTRY ORDERABLES Performing Organization Address [facility] Phone Number ARIAN CERDAIUM * Prothrombin Time (12/29/2011 11:29 PM EST) Prothrombin Time 13.2 11.9 - 14.7 sec CERNER MILLENNIUM Comment: [facility] Transfusion Committee Guidelines: INR less than 2.0, [...] MD HEMATOLOGY ORDERABLE S Performing Organization Address [facility] Co de Phone Number ARIAN CERDAIUM * Hepatic Function Panel (12/29/2011 11:29 PM [...] Ceron MD CHEMISTRY ORDERABLES Performing Organization Address [facility] de Phone Number ARIAN CERDAIUM * pro-Brain Natriuretic Peptide (12/29/2011 11:29 PM EST) NT-proBNP 114 <=125 pg/mL ARIAN CAENNIUM Blood specimen (specimen) 12/29/2011 11:29 PM EST 12/29/2011 11:34 PM EST Narrative Resulting Agency Comment Spec In Lab Remigio Ceron MD CHEMISTRY ORDERABLES Performing Organization Address [facility] de Phone Number ARIAN CAENNIUM * TSH (12/29/2011 11:29 PM EST) Thyroid Stimulating Hormone 0.39 0.27 - 4.20 mcIU/mL CERBRIAN CAENNIUM Blood specimen (specimen) 12/29/2011 11:29 PM EST 12/29/2011 11:34 PM EST Narrative Resulting Agency Comment Spec In Lab Remigio Ceron MD CHEMISTRY ORDERABLES Performing Organization Address [facility] de Phone Number ARIAN CAENNIUM * Phosphorus (12/29/2011 11:29 PM EST) Phosphorus 3.1 2.5 - 4.5 mg/dL CERBRIAN CAENNIUM Blood specimen (specimen) 12/29/2011 11:29 PM EST 12/29/2011 11:34 PM EST Narrative Resulting Agency Comment Spec In Lab Remigio Ceron MD CHEMISTRY ORDERABLES Performing Organization Address [facility] Co de Phone Number CERNER MILLENNIUM * Magnesium (12/29/2011 11:29 PM EST) Magnesium [...] Platelet Volume 10.5 9.0 - 12.0 fL [facility] MILLENNIUM Blood specimen (specimen) 12/29/2011 11:29 PM EST 12/29/2011 11:34 PM EST Narrative Resulting Agency Comment Spec In Lab Remigio Ceron MD HEMATOLOGY ORDERABLE S Performing Organization Address [facility] de Phone Number [facility] * APTT (12/29/2011 11:29 PM EST) Partial Thromboplastin Time 34 25 - 35 sec [facility] Comment: Recommended therapeutic PTT range for full dose unfractionated heparin is 80-114 seconds. Blood specimen (specimen) 12/29/2011 11:29 PM EST 12/29/2011 11:34 PM EST Narrative Resulting Agency Comment Spec In Lab Remigio Ceron MD HEMATOLOGY ORDERABLE S Performing Organization Address [facility] de Phone Number [facility] * EKG 12 Lead (12/29/2011 11:13 PM EST) Ventricular rate 108 BPM MUSE SYSTEM Atrial Rate 108 BPM MUSE SYSTEM P-R Interval 150 ms MUSE SYSTEM QRS Duration 106 ms MUSE SYSTEM Q-T Interval 340 ms MUSE SYSTEM QTC Calculated (Bezet) 455 ms MUSE SYSTEM Calculated P Aneta 19 degrees MUSE SYSTEM Calculated R Aneta 31 degrees MUSE SYSTEM Calculated T Aneta 51 degrees MUSE SYSTEM INTERPRETATION Sinus tachycardia Nonspecific T wave abnormality Abnormal ECG No previous ECGs available Confirmed by Madi FORD MD, Saulo ([id number]) on 12/30/2011 2:22:07 PM MUSE SYSTEM 12/29/2011 11:1 3 PM EST 12/30/2011 2:22 PM EST Remigio Ceron MD ECG ORDERABLES Performing Organization Address [facility] Phone Number MUSE SYSTEM documented in this encounter Visit Diagnoses Diagnosis Chest pain- Primary Chest pain, unspecified HTN (hypertension) Unspecified essential hypertension Hyperlipidemia Other and unspecified hyperlipidemia Depression Depressive disorder, not elsewhere classified 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 Coronary artery disease Coronary atherosclerosis of unspecified type of vessel, napaimute or graft documented in this encounter Administered [...] dose on Wed01/04/12 at 2100, Until Discontinued, [place] teeth., Routine Given 01/05/2012 9:00 AM EST [...] Intravenous, 2 TIMES DAILY, First dose on Tu01/05/12 at 1200, Until Discontinued Given 01/07/2012 9:00 [...] at 2046, Until Wed12/29/11 at 2100, MATIAS Acosta Override heparin (porcine) injection 2,000-4,000 Units 2,000-4,000 [...] than 145 sec X 2 - call supervisor [facility] house See Bolus dosing guidance for aPTT values [...] than 145 sec X 2 - call supervisor [facility] [place] See Bolus dosing guidance for aPTT values [...] than 145 sec X 2 - call supervisor hide house See Bolus dosing guidance for aPTT values [...] SCHEDULED, First dose (after last modification) on Angelita 12/31/11 at 0045, Until Discontinued, Hold for [...] Million Units, Intramuscular, ONCE, 1 dose, On Wed01/02/12 at 1600, Routine Given 01/02/2012 4:00 PM [...] 40 mEq, Oral, ONCE, 1 dose, On Angelita 12/31/11 at 0715, Routine Given 12/31/2011 11:48 AM [...] BP less than 90 mmHg . Call supervisor hide house for additional fluid orders: pager #[phone]. Rate/Dose Verify 01/05/2012 2:00 AM EST 125 [...] on Wed01/05/12 at 2100, Until Discontinued, Routine 09 (Given - Provider: [...] 2004 (Given - Provider: Hermila Dumas RN) 0900 (Given - Provider: Sangita Self, DAVID) protriptyline (VIVACTIL) tablet 10 mg (CANCELED) 10 mg, Oral, 3 TIMES DAILY, First dose on Wed01/05/12 at 1100, Until Discontinued, Patient using own, Routine 09 (Given - Provider: Michelle Chong RN)1500 (Given - Provider: Michelle Chong RN)2008 (Given - Provider: Hermila Dumas RN) 0900 (Given - Provider: Michelle Chong RN)1500 (Given - Provider: Michelle Chong RN)2000 (Given - Provider: Hermila Dumas RN) 0900 (Given - Provider: Sangita Self RN) senna-docusate [...] Discontinued 031 (Given - Provider: Hermila Dumas RN)1114 (Given - Provider: Michelle Chong, DAVID)2009 (Given - Provider: Hermila Dumas RN) 314 (Given - Provider: Hermila Dumas RN)1114 (Given - Provider: Michelle Chong RN)2000 (Given - Provider: Hermila Dumas RN) 314 (Given - Provider: Hermila Dumas RN)1114 (Given - Provider: Sangita Self RN) venlafaxine [...] Routine documented in this encounter Care Teams Child And Family Services Worker Relationship Specialty Start Date End Date Patric Al MD PCP - General 12/29/11 02/26/19 documented as of this encounter
--- OUTSIDE RECORDS SUMMARY | 2024-07-25 15:04 | XMS_ITS | Encounter Summary ---
Author Organization Formerly [facility] [place] [address] Care Team Providers Care Food Safety Manager Name Role Phone Guanako Gusman MD Primary Care Provider [phone] Encounter Details Date Type Department Care Team (Late st Contact Info) Description 01/04/2012 [place] [phone] Unknown None Social History Tobacco Use Types [...] AM EDT Hospital Encounter [place] [phone] Lisette Maldonado MD [facility] [place] [address] 08/01/2024 7:30 AM EDT - 08/01/2024 1:43 PM EDT Surgery [place] [phone] Lisette Maldonado MD [facility] [place] [address] @BYPASS GRAFT, FEM-ANT TIBIAL, -POST TIBIAL, -PERONEAL, [...] Procedure: ? Transesophageal Echocardiogram Patient: ? QUIANA AUSTIN P ?(Age): () ? Med Rec#: ?[id number] ? Sex: ? Site Loc: ? Ht / Wt: ??(cm)/(kg) ? Pt. Loc: ?BSA: ? Study Date: ?01/04/2012 ? Pt. Type: Tape: ? Referring: BASILIO Referring: Alfonso Morales Reading: Rodrigo Montgomery ([id number]) Performing: Rodrigo oMntgomery ([id number]) Belly Dump Driver: KEVIN Diagnosis:CPT Code(s): Indication(s):Rhythm: SUMMARY: 1. Intraoperative [...] ? Mid-Inferior ?Normal ? Mid-Inferoseptal ?Normal ? [place]-Septal ? Normal ? [place]-Anterior ? Normal ? [place]-Lateral ?Normal ? [place]-Inferior ? Normal ? [place]-Tip ?Normal ? Chambers ?Value ?Units (Range) ? LV EF Est ? 60 ? % (55 to 80) ? This report has been electronically signed by: Rodrigo Montgomery MD ? 01/04/2012 15:48:22 Images reviewed and interpretation verified [facility] Cardiac [facility] Procedure Note Unknown - 01/04/2012 Procedure: Transesophageal Echocardiogram Patient: QUIANA MILLIGAN(Age): () Med Rec#: [id number] Sex: Site Loc: Ht / Wt: (cm)/(kg) Pt. Loc: BSA: Study Date: 01/04/2012 Pt. Type: Tape: Referring: BASILIO Referring: Alfonso Morales Reading: Rodrigo Montgomery ([id number]) Performing: Rodrigo Montgomery ([id number]) Belly Dump Driver: EKVIN Diagnosis:CPT Code(s): Indication(s):Rhythm: SUMMARY: 1. Intraoperative HELEN [...] Normal Mid-Posterolateral Normal Mid-Inferior Normal Mid-Inferoseptal Normal [place]-Septal Normal [place]-Anterior Normal [place]-Lateral Normal [place]-Inferior Normal [place]-Tip Normal Chambers Value Units (Range) LV EF Est 60 % (55 to 80) This report has been electronically signed by: Rodrigo Montgomery MD 01/04/2012 15:48:22 Images reviewed and interpretation verified [facility] Cardiac Ul[facility] Unknown ECHO ORDERABLES documented in this encounter Visit Diagnoses Not on filedocumented in this encounter Care Teams Food Safety Manager Relationship Specialty Start Date End Date Guanako Gusman MD PCP - General 12/29/11 02/26/19 documented as of this encounter
--- OUTSIDE RECORDS SUMMARY | 2024-07-25 15:05 | XMS_ITS | Encounter Summary ---
Author Organization [facility] Address [facility] [place] [address] Care Team Providers Care Adult Ministries Director Name Role Phone Guanako Gusman MD Primary Care Provider [phone] Encounter Details Date Type Department Care Team (Late st Contact Info) Description 01/01/2012 11:59 PM EST Anesthesia Event [place] [phone] Reny Melchor MD [facility] [place] [address] Anesthesia Record Procedure Summary Procedure Name Responsible Anesthesiologist Anesthesia Start Time Anesthesia Stop Time @CABG; 3 VENOUS GRAFTS & ARTERIAL GRAFT (WRVU 10.49) Events No events on file. Meds * Agents No agents on file. * Blood No blood administrations on file. Lines, Drains, and Airways Type Details Placement Removal Wound 07/15/24; 1900; Y; L eft; first toe; neuropathic wound/ulcer 07/15/24 1900 by Jay Ignacio RN Wound 07/15/24; 1900; Y; L eft; fifth toe; neuropathic wound/ulcer 07/15/24 190 by Jay Ignacio RN Incision 07/19/24; 0946; [...] ROS comment: +TOB Cardiovascular (+) hypertension, past DE, CAD, angina, WHITTAKER, (-) CHF ROS comment: [...] AM EDT Hospital Encounter [place] [phone] Lisette Maldonado MD [facility] [place] [address] 08/01/2024 7:30 AM EDT - 08/01/2024 1:43 PM EDT Surgery [place] [phone] Lisette Maldonado MD [facility] [place] [address] @BYPASS GRAFT, FEM-ANT TIBIAL, -POST TIBIAL, -PERONEAL, -DP W\ SYNTHETIC CONDUIT (WRVU 23.66) Scheduled Procedures Name Priority Associated Diagnoses Date/Ti me @BYPASS GRAFT, FEM-ANT TIBIA L, -POST TIBIAL, -PERONEAL, -DP W\ SYNTHETIC CONDUIT (WRVU 23.66) [facility] 08/01/2024 7:30 AM EDT documented as of this encounter Visit Diagnoses Not on filedocumented in this encounter Care Teams Adult Ministries Director Relationship Specialty Start Date End Date Guanako Gusman MD PCP - General 12/29/11 02/26/19 documented as of this encounter
--- OUTSIDE RECORDS SUMMARY | 2024-07-25 15:05 | XMS_ITS | Encounter Summary ---
Author Organization [facility] Address [facility] [place] [address] Care Team Providers Care Clothes Drier Repairer Name Role Phone Patric Al MD Primary Care Provider [phone] Encounter Details Date Type Department Care Team (Late st Contact Info) Description 01/04/2012 12:18 PM EST - 01/04/2012 4:46 PM EST [place] [address] Inna Tovar MD [facility] [place] [address] ENDOSCOPIC HARVEST VEIN(S) FOR CABG (WRVU 0.31) [...] 12:11 PM EST Geovanna Dixon Jr. 1975 [id number] New Diagnosis of Pre-Diabetes For discharge should [...] Some considerations about using metformin in Prediabetics: [place] Diabetes Prevention Program (DPP) as well as other minor studies and meta-analyses has convincingly demonstrated the efficacy of metformin in this patient group [pre-diabetics]. In addition, results of the 10 year DPP follow up have recently been published, demonstrating the skilled nursing safety and sustainability of metformin treatment benefits [...] will be starting Cardiac rehab at [facility], encouraged to increase physical activity as advised by cardiologists Weight Loss - A 7% weight loss could significantly improve his BG control Tobacco cessation - There is growing evidence that cigarette smokers are more prone than the general population to develop T2DM. Increase in insulin resistance with tobacco use. Darcie Lange APRN [facility] Endocrinology Diabetes Management [phone] * Patient Instructions* Ricky Graham PA - [...] Anne Tovar and/or the Cardiothoracic Surgery Physician Talk Show Host Team may be reached at . Activity [...] Dr. Inna Tovar. You may use a [place] Track or treadmill but avoid any pulling [...] friends, go to a movie, go to denominational, etc. Heavy activities: No hunting, skiing, jogging, [...] would be to continue to go [place]. He has quit this way before and [...] only 10% of those who quit [place] are able to be successful. The calculated savings once he quits smoking would be $54 a week, $234 a month, and $2803 a year. If he quits now his savings will be $28,030 in 10 years. The patient was provided with a [facility] Smoking Cessation packet and the contents have been reviewed with him. The patient now has the Quit line number for [place] and has also been encouraged to use this ifneeded for support. In addition he was in agreement with a referral to the [place] Quitnetwork and a referral was faxed to them on his behalf. Patient has been advised to contact Mrs. Maislen, PAPER DELIVERER with any questions or if he wants [...] given to patient. [facility]. Patient discharged [...] outpatient basis Equipment needs: none ADEBAYO MCGARRY, HIDE BUYER Pager: [phone] Physical Therapy Rehabilitation Department * Michelle Chong [...] services. Patient would like VNA services through [facility]. PHONE: [phone] FAX: [phone]. Referral made via E-discharge. Please see home care orders that must be included in discharge summary for VN services to start. Patient has glucometer and supplies at bedside. Pt. Denies any further needs from [facility]. Pt. Gets scripts through [place] Medicaid with co-pay. He denies any concerns related to co-pay. * Darcie Lange, RESHMA - 01/07/2012 9:57 AM EST Geovanna Dixon Jr. 1975 [id number] PATRIC AL MD Follow Up Diabetes Consult [...] Some considerations about using metformin in Prediabetics: [place] Diabetes Prevention Program (DPP) as well as other minor studies and meta-analyses has convincingly demonstrated the efficacy of metformin in this patient group [pre-diabetics]. In addition, results of the 10 year DPP follow up have recently been published, demonstrating the skilled nursing safety and sustainability of metformin treatment benefits [...] will be starting Cardiac rehab at [facility], encouraged to increase physical activity as advised [...] sensitive Novolog correction only Darcie Lange APRN [facility] Endocrinology Diabetes Management [phone] Pager [phone] This case was discussed with Dr. Christina Brody. 25 min time spent in patient care with 20 counseling, seeing patient, changing orders and discussion with the patient and the primary team as well as nursing. * Inna Tovar MD - 01/07/2012 9:39 AM EST Cardiac Surgery Progress Note: ID: [id number] 36/M POD #[address] Tovar [...] results found for this basename: phart, po2art, nmo0ahg Assessment/Plan: Pathway. Neuro: ambulating on own per [...] home. (ie take out the trash or miner pick his child) Objective:Pt was seen today for [...] interventions: 30 minutes NAM TRINIDAD, PT Pager: [phone] Physical Therapy Rehabilitation Department * Vibha Martines APRN - 01/06/2012 4:25 PM EST TOBACCO TREATMENT NOTE 01/06/2012 Name: Geovanna Dixon Date of : 1975 Patient Active Problem [...] FOR CABG performed by INNA TOVAR at [facility] OR ??? Cabg, artery-vein, single 01/04/2012 @CABG, VENOUS & ARTERIAL GRAFT;SINGLE VEIN GRAFT performed by INNA TOVAR at [facility] OR Outpatient prescriptions marked as [...] Dis Paternal Grandfather Reason for visit: Geovanna Llanos Zack Winter was referred by Dr. Tovar for smoking [...] yes Date: 12/29/11 Why then: Admission to [facility] What will be different this time: Just [...] in places where it is forbidden ex denominational No Yes 0 3. Which cigarette would [...] would be to continue to go [place]. He has quit this way before and it lasted several years, so he has a history of being successful with this method. He also pointed out that his father and an uncle quit (for now over 10 years) by going [place]. I told him that it is difficult to recommend a quit method that has a 90% failure rate, but that said, it is his choice and that I would provide him with a toolkit of information so that he will be as knowledgeable as possible about nicotineaddiction and how to stay quit. And we do know that 10% of those who quit [place] are able to be successful. I calculated and shared with him that his savings once he quits smoking would be $54 a week, $234 amonth, and $2803 a year. If he quits now his savings will be $28,030 in 10 years. The patient has also been provided with a [facility] Smoking Cessation packet and the contents have been reviewed with him. The patient now has the Quit line number for [place] and has also been encouraged to use this if needed for support. In addition he was in agreement with a referral to the [place] Quitnetworkand I have FAXed a referral to [...] Nutrition Intervention: Hospital Day 9 Diet Order: [facility] Appetite: fair Food allergies: none Chewing/Swallowing difficulty: none Height: (cm) 180.3 Weight: (kg) 127.9 01/06/12 Wt hx: (kg) 124.5 12/29/11 BMI: 38.4 Education: [facility] dietary guidelines. Tips To Better Food Intake (Protein) dietary guidelines. Verbalized good understanding. Education material, with means of contact provided. Assessment: Patient verbalized good understanding of protein needs for healing as well as [facility] Heart Healthy guidelines. I have added high protein snacks between meals and CIB shakes to meal trays for extra protein/nutrition. Nutrition Plan: Diet: [facility] Recommend Daily Multi Vitamins. Added high protein snacks. CIB w/skim milk shakes three times per day. Encourage good po intake. Monitor weight. Support and encouragement provided. Nutrition services to follow weekly thru hospital course unless consulted in the interim. ACOSTA SMALL * Inna Tovar MD - 01/06/2012 1:50 PM EST Cardiac Surgery In Patient Progress Note Patient Name: Geovanna Dixon Jr. : [id number] MR#: [id number] Admitted: 12/29/2011 Hospital Day 8 days Problem [...] Hamlin RN - 01/06/2012 10:11 AM EST [facility] CARDIAC REHABILITATION Geovanna Dixon Jr. was seen today regarding participation in outpatient Phase 2 Cardiac Rehabilitation at [facility] . A referral will be sent to this program. The patient was given contact information and should expect to be contacted by the program within 1-2 weeks after discharge from [facility]. * Kareen Mendoza, PT - 01/05/2012 3:59 [...] FOR CABG performed by INNA TOVAR at [facility] OR ??? Cabg, artery-vein, single 01/04/2012 @CABG, VENOUS & ARTERIAL GRAFT;SINGLE VEIN GRAFT performed by INNA TOVAR at [facility] OR Social History: Patient lives [...] minutes brief evaluation KAREEN MENDOZA, PT Pager: [phone] Physical Therapy Rehabilitation Department * Camille Angulo [...] MD Financial Concerns: insured via Medicare and [place] [employer] Transportation: With family members. Father was in room also and said he could drive as could step-daughter. Anticipated Services at Discharge: will require re-assessment closer to time of d/c. May need VNA. A: medical plan still evolving. P: This magazine writer or colleague from the Office of [...] FULL CODE Paola Akers PGY 1 Pager [phone] Attending Addendum: I spoke with the patient and his family briefly this am. I agree with the principal findings. The impression and plan incorporate my input. No contraindication to surgery today. Sarthak Pollard MD [facility] pager [phone] * Sarthak Pollard MD - 01/03/2012 11:08 [...] risk of aggravating CAD. Sarthak Pollard MD [facility] pager [phone] * Bal John MD - 01/02/2012 3:10 [...] confirms his findings. Of note today: Mr. Zack's throat feels better. He has been afebrile. [...] ??? sodium chloride 0.9% 30 mL/hr (12/30/11 09) ??? DISCONTD: heparin 2,850 Units/hr (01/01/12 0457) [...] Cristina Ambriz MD PGY1, Internal Medicine Pager [phone] 01/02/2012 Attending Addendum: I have interviewed and examined the patient. I agree with the principal findings. The impression and plan incorporate my input. As above, doing well. Will keep on heparin until surgery. No angina, HF, bleeding, or evidence of HIT. Sarthak Pollard MD [facility] pager [phone] * Inna Tovar MD - 01/01/2012 3:17 PM EST Please see Dr. Major's note from 12/31/11 for full details. Briefly, Mr. Dixon developed unstable angina and ruled in for AZ. Cath shows severe 3 vessel disease. Echo [...] Geovanna Viet Dixon Jr. SUMMARY: Geovanna Dixon Jr. is [...] mg BID Paola Akers PGY 1 Pager [phone] Attending Addendum: I have interviewed and examined the patient. I agree with the principal findings. The impression and plan incorporate my input. He is disappointed that his surgery has been postponed until Wednesday butunderstands. He remains cp free. I've reviewed his angiograms and believe he needs to stay on heparin until surgery. All questions answered. Sarthak Pollard MD [facility] pager [phone] * Andi Rene MD - 12/31/2011 5:20 [...] for chest pain as a transfer from [facility] - Cardiac cath yesterday showed significant 3 [...] mg BID Paola Akers PGY 1 Pager [phone] Cardiology Attending Progress Note Addendum: I have [...] would like to attend cardiac rehab at [facility] in [facility]. We will meet him again after [...] off unit to XRAY with transpo & ENTERTAINMENT DIRECTOR. documented in this encounter H&P Notes * [...] with three vessel coronary disease HPI: Mr. iDxon has a significant family history of early [...] alleviate the pain. He eventually presented to [facility] on Wednesday wherehe had elevated [...] Lives on social security in house in [facility] with two children (18 and 4, and one step child) Active pack per day smoker (27pack year history) No etoh No drugs Enjoys riding motorcycles and hunting He is NOT a FHx: Heart disease on both sides of the family Father's side with multiple uncles with AZ's, one at age of 40 Mother's side with uncle at age 50 from [place] Diabetes in mother ROS: Positive headache, nausea [...] 13.2 12/29/2011 PTT 31 12/30/2011 Troponins at [facility]: 0.05-->0.03 Imaging: Echo 12/30/11: 1. The left [...] loss were emphasized as they relate to watcher automat long goods patency of his grafts. He should receive smoking cessation counseling donya. One post op consideration will be vent wean and respiratory status given likely underlying CAMILLA and his known narcolepsy. 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 Pt seen and interviewed with [...] +active 25 pack year smoker comes to [facility] from [facility] for evaluation of intermittent CP since [...] history (both paternal grandparents passing away from [facility] and paternal aunts/uncles with histories [...] FULL Provider: REMIGIO CERON MD Pager #: [phone] documented in this encounter Procedure Notes * Provider, Scanning - 01/10/2012 1:46 PM ESTAssociated Order(s): SCAN DOC: DINKEY SKINNER * Provider, Scanning - 01/10/2012 1:46 PM [...] EST * Consult Note - Darcie Lange, PAPER DELIVERER - 01/06/2012 3:45 PM EST Geovanna Dixon Jr. 1975 [id number] Inpatient Endocrinology Glucose Management Consult Date of Consultation: 01/06/2012 Place of Consultation: [facility] Consult Requested by: Dr. Tovar, [place] Surgery Reason for Consultation: Geovanna Dixon Jr. is a 36 y.o. male who was admitted on 12/29/2011 for the diagnosis of CAD now s/p CABG x2 with Dr. Tovar, POD #2. We are asked to see him to assist with diabetes management and to provide a review of his watcher automat long goods diabetes plan. Diabetes History: Geovanna Dixon Jr. has NO history of diabetes, + for a family history of diabetes on mother's side and some on father's. Family history is also very significant for coronary artery disease. He stated that he has been tested in the past for diabetes but told that he does have diabetes, uncertain on A1C #. As per [facility] labs last A1C = 6.1% which [...] Diabetes Care: Medications: None Monitoring: None Diet: [facility] Healthy No Known Allergies Past Medical History: [...] considerations about using metformin in Prediabetics: ?? [place] Diabetes Prevention Program (DPP) as well as other minor studies and meta-analyses hasconvincingly demonstrated the efficacy of metformin in this patient group [pre-diabetics]. In addition, results of the 10 year DPP follow up have recently been published, demonstrating the watcher automat long goods safety and sustainability of metformin treatment benefits [...] will be starting Cardiac rehab at [facility], encouraged to increase physical activity as advised [...] metformin 500 mg QD Darcie Lange APRN [facility] Endocrinology Diabetes Management [phone] Pager [phone] This case was discussed with Dr. Christina Brdoy. 35 min time spent in patient care [...] alleviate the pain. He eventually presented to [facility] on Wednesday where he had [...] Course: Geovanna Dixon Jr. was admitted to [facility] on 12/29/2011 to the cardiologyservice for [...] stable. He was seen by endocrinology for [facility] history of diabetes. He has been told [...] Medications: Geovanna Dixon Jr. Home Medication Instructions CRAIG:[id number] Printed on:01/08/12 9643 Medication Information simvastatin (ZOCOR) 20 mg tablet [...] Anne Tovar and/or the Cardiothoracic Surgery Physician Talk Show Host Team may be reached at . Activity [...] Dr. Inna Tovar. You may use a [place] Track or treadmill but avoid any pulling [...] friends, go to a movie, go to denominational, etc. Heavy activities: No hunting, skiing, jogging, [...] would be to continue to go [place]. He has quit this way before and [...] only 10% of those who quit [place] are able to be successful. The calculated savings once he quits smoking would be $54 a week, $234 a month, and $2803 a year. If he quits now his savings will be $28,030 in 10 years. The patient was provided with a [facility] Smoking Cessation packet and the contents have been reviewed with him. The patient now has the Quit line number for [place] and has also been encouraged to use this ifneeded for support. In addition he was in agreement with a referral to the [place] Quitnetwork and a referral was faxed to [...] Some considerations about using metformin in Prediabetics: [place] Diabetes Prevention Program (DPP) as well as other minor studies and meta-analyses has convincingly demonstrated the efficacy of metformin in this patient group [pre-diabetics]. In addition, results of the 10 year DPP follow up have recently been published, demonstrating the watcher automat long goods safety and sustainability of metformin treatment benefits [...] will be starting Cardiac rehab at [facility], encouraged to increase physical activity as advised by cardiologists Weight Loss - A 7% weight loss could significantly improve his BG control Tobacco cessation - There is growing evidence that cigarette smokers are more prone than the general population to develop T2DM. Increase in insulin resistance with tobacco use. Darcie Lange APRN [facility] Endocrinology Diabetes Management [phone] Medications: Take only those medications listed on [...] should resume a low fat, low cholesterol, [place] Heart Association Diet. Driving: No driving for [...] in outpatient Phase 2 Cardiac Rehabilitation at [facility] . A referral will be sent to this program. He was given contact information and shouldexpect to be contacted by the program within 1-2 weeks after discharge from [facility]. Arrangements for VNA/home care: PATIENT'S LOCATION: Geovanna Dixon Jr. [address] [place] [address] There is no home phone number on file. Telephone Information: In discussion with the attending physician, it is certified that this patient is under their care and that they, or a nurse practitioner, clinical nurse specialist or physician's certified pharmacist assistant who is working directly with them, [...] for services as follows: HOME HEALTH AGENCY: [facility]. PHONE: [phone] FAX: [phone] RN orders: Cardiopulmonary assessment, incisional assessment, assess [...] issues please call the Cardiac SurgeryOffice at [phone] FOR MEDICARE ONLY: (please delete this section if not Medicare) In discussion with the attending physician, it is certified that the clinical findings support thatthis patient is homebound (i.e. absences from home require considerable and taxing effort and are for medical reasons or worship services of infrequently or of short duration [...] nurse practitioner, clinical nurse specialist or physician's certified pharmacist assistant who is working directly with them, [...] effort and are for medical reasons or worship services of infrequently or of short duration when for other reasons) Please note that any additional orders needs or changes will need to be obtained from this patient's PCP: PATRIC AL MD [phone] All VNA agencies which cover the area [...] or after 01/13/12. Signed: Ricky Graham PA-C [facility] Section of Cardiothoracic Surgery Date: 01/08/12 CC: MD [facility] [address] [place] [address] * Op Note - Inna Tovar MD - 01/04/2012 3:55 PM EST [facility] Operative Note Patient Name: Geovanna Dixon Jr. : [id number] MR#: [id number] Case Date: 01/04/2012 Surgeon: Surgeon(s) and Role: [...] enlarged. There was diffuse disease in all [place] vessels. The OFELIA and vein were of excellent quality. The lungs had early emphysematous changes. Procedure Details: The patient was brought to the operating room and given general anesthesia. A Columbus-Haley catheter, radial arterial line, and Mendez catheter [...] fter inspection for adequate hemostasis, two #28 Albanian chest tubes were placed and brought out [...] Note Patient Name: Geovanna Dixon Jr. 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 No recent out door activities or [...] likely. (Leukocytosis may be r/t stress of [place].) Bacteremia as a complication of his cath, [...] AM EDT Hospital Encounter [place] [address] Lisette Maldonado MD [facility] [place] [address] 08/01/2024 7:30 AM EDT - 08/01/2024 1:43 PM EDT Surgery [place] [address] Lisette Maldonado MD [facility] [place] [address] @BYPASS GRAFT, FEM-ANT TIBIAL, -POST TIBIAL, -PERONEAL, [...] EST LAB SCAN 01/10/2012 1:46 PM EST DINKEY SKINNER SCAN 01/10/2012 1:46 PM EST CARDIAC CATH [...] 12/30/2011 4:25 PM EST TYPE AND SCREEN ([facility]/CGP/BABITA) Routine 12/30/2011 4:14 PM EST CARDIAC ENZYMES ([facility]/CGP) STAT 12/30/2011 2:08 PM EST APTT STAT 12/30/2011 2:08 PM EST HIV SCREEN, 4TH GENERATION ([facility]/CGP/APD/NLH) Routine 12/30/2011 10:18 AM EST ECHOCARDIOGRAM TRANSTHORACIC [...] Routine 12/30/2011 7:07 AM EST CARDIAC ENZYMES ([facility]/CGP) STAT 12/30/2011 5:45 AM EST APTT STAT [...] 12/29/19 12 11:29 PM EST CARDIAC ENZYMES ([facility]/CGP) STAT 12/29/2011 11:29 PM EST APTT STAT [...] (Bezet) 453 ms MUSE SYSTEM Calculated P [place] 41 degrees MUSE SYSTEM Calculated R [place] 25 degrees MUSE SYSTEM Calculated T [place] 74 degrees MUSE SYSTEM INTERPRETATION Sinus tachycardia Inferior infarct , age undetermined Nonspecific T wave abnormality Abnormal ECG When compared with ECG of 04-JAN-2012 16:26, Inferior infarct is now Present Inverted T waves have replaced nonspecific T wave abnormality in Anterior leads Confirmed by MD BENITES BRUCE ([id number]) on 02/09/2012 4:00:55 PM MUSE SYSTEM [...] SCAN EXT O RDR/RSLT * SCAN DOC: DINKEY SKINNER (01/10/2012 1:46 PM EST) Anatomical Region Laterality Modality Other Narrative 01/11/2012 8:32 AM EST Procedure Note Provider, Scanning - 01/10/2012 1:46 PM EST Scanning Provider MEDIA MGR SCAN EXT O RDR/RSLT * POCT GLUCOSE LAB USE ONLY (01/08/2012 12:00 PM EST) [facility] Glucose, POC 106 60 - 199 mg/dL [facility] Comment: Supplemental ranges: <110 mg/dL before meals <200 mg/dL all other times of the day Blood specimen (specimen) 01/08/2012 12:00 PM EST 01/08/2012 12:00 PM EST Andi Rene MD POINT OF CARE TEST O GILDA Performing Organization Address [facility] Co de Phone Number [facility] * Potassium (01/08/2012 10:05 AM EST) Potassium 4.2 3.5 - 5.0 mmol/L [facility] Comment: Please note: ??Patients with WBC >100,000 [...] Tovar MD CHEMISTRY ORDERABLES Performing Organization Address [facility] Co de Phone Number [facility] * POCT GLUCOSE LAB USE ONLY (01/08/2012 7:21 AM EST) Glucose, POC 144 60 - 199 mg/dL [facility] Comment: Supplemental ranges: <110 mg/dL before meals <200 mg/dL all other times of the day Blood specimen (specimen) 01/08/2012 7:21 AM EST 01/08/2012 7:21 AM EST Andi Rene MD POINT OF CARE TEST Stephanie VO Performing Organization Address [facility] Co de Phone Number [facility] * POCT GLUCOSE LAB USE ONLY (01/07/2012 8:43 PM EST) Glucose, POC 179 60 - 199 mg/dL [facility] Comment: Supplemental ranges: <110 mg/dL before meals <200 mg/dL all other times of the day Blood specimen (specimen) 01/07/2012 8:43 PM EST 01/07/2012 8:43 PM EST Andi Rene MD POINT OF CARE TEST O GILDA Performing Organization Address [facility] Phone Number [facility] * POCT GLUCOSE LAB USE ONLY (01/07/2012 4:47 PM EST) Glucose, POC 128 60 - 199 mg/dL [facility] Comment: Supplemental ranges: <110 mg/dL before meals <200 mg/dL all other times of the day Blood specimen (specimen) 01/07/2012 4:47 PM EST 01/07/2012 4:47 PM EST Andi Rene MD POINT OF CARE TEST O GILDA Performing Organization Address [facility] Phone Number [facility] * Potassium (01/07/2012 11:42 AM EST) Potassium 3.6 3.5 - 5.0 mmol/L [facility] Comment: Please note: ??Patients with WBC >100,000 [...] Tovar MD CHEMISTRY ORDERABLES Performing Organization Address [facility] de Phone Number [facility] * POCT GLUCOSE LAB USE ONLY (01/07/2012 11:41 AM EST) Glucose, POC 114 60 - 199 mg/dL [facility] Comment: Supplemental ranges: <110 mg/dL before meals <200 mg/dL all other times of the day Blood specimen (specimen) 01/07/2012 11:41 AM EST 01/07/2012 11:41 AM EST Andi Rene MD POINT OF CARE TEST O RDERABLES ARIAN NELSON * XR chest routine PA [...] Platelet Volume 9.5 9.0 - 12.0 fL [facility] MILLENNIUM Blood specimen (specimen) 01/07/2012 4:11 AM EST 01/07/2012 4:17 AM EST Narrative Resulting Agency Comment Spec In Lab Sarthak Pollard MD HEMATOLOGY ORDERABLE S Performing Organization Address [facility] de Phone Number [facility] * Microalbumin, urine, random (01/06/2012 9:03 PM EST) Creatinine, Urine 136 mg/dL CE R[facility] MILLENNIUM Albumin, Urine 14.4 mg/L CERNE R MILLENNIUM Albumin / Creatinin Ratio, Urine 11 mcg/mg Cr [facility] MILLENNIUM Comment: Reference Range* Random collection (mcg/mg creatinine) Normal ?<30 Microalbuminuria ?? 30 - 300 Clinical Albuminuria ?? >300 *[employer] [employer]. Diabetic Nephropathy. Diabetes Care 1997;(Suppl 1):S24-S27 Exercise within 24 hour, infection, fever, CHF, marked hyperglycemia, and marked hypertension may elevate urinary albumin excretion over baseline values. Urine specimen (specimen) 01/06/2012 9:03 PM EST 01/06/2012 10:28 PM EST Narrative Resulting Agency Comment Spec In Lab Inna Tovar MD URINE ORDERABLES Performing Organization Address [facility] de Phone Number [facility] * POCT GLUCOSE LAB USE ONLY (01/06/2012 7:46 PM EST) Glucose, POC 127 60 - 199 mg/dL [facility] Comment: Supplemental ranges: <110 mg/dL before meals <200 mg/dL all other times of the day Blood specimen (specimen) 01/06/2012 7:46 PM EST 01/06/2012 7:46 PM EST Andi Rene MD POINT OF CARE TEST O RDERABLES Performing Organization Address [facility] Co de Phone Number [facility] * POCT GLUCOSE LAB USE ONLY (01/06/2012 4:24 PM EST) Glucose, POC 131 60 - 199 mg/dL [facility] Comment: Supplemental ranges: <110 mg/dL before meals <200 mg/dL all other times of the day Blood specimen (specimen) 01/06/2012 4:24 PM EST 01/06/2012 4:24 PM EST Andi Rene MD POINT OF CARE TEST O GILDA Performing Organization Address [facility] de Phone Number [facility] * POCT GLUCOSE LAB USE ONLY (01/06/2012 12:06 PM EST) Glucose, POC 160 60 - 199 mg/dL [facility] Comment: Supplemental ranges: <110 mg/dL before meals <200 mg/dL all other times of the day Blood specimen (specimen) 01/06/2012 12:06 PM EST 01/06/2012 12:06 PM EST Andi Rene MD POINT OF CARE TEST Stephanie VO Performing Organization Address [facility] Phone Number [facility] * Potassium (01/06/2012 9:59 AM EST) Potassium 4.0 3.5 - 5.0 mmol/L [facility] Comment: Please note: ??Patients with WBC >100,000 [...] Tovar MD CHEMISTRY ORDERABLES Performing Organization Address [facility] de Phone Number [facility] * POCT GLUCOSE LAB USE ONLY (01/06/2012 6:53 AM EST) Glucose, POC 168 60 - 199 mg/dL [facility] Comment: Supplemental ranges: <110 mg/dL before meals <200 mg/dL all other times of the day Blood specimen (specimen) 01/06/2012 6:53 AM EST 01/06/2012 6:53 AM EST Andi Rene MD POINT OF CARE TEST O RDTYESHA Performing Organization Address [facility] de Phone Number [facility] * POCT GLUCOSE LAB USE ONLY (01/06/2012 5:03 AM EST) Glucose, POC 147 60 - 199 mg/dL [facility] Comment: Supplemental ranges: <110 mg/dL before meals <200 mg/dL all other times of the day Blood specimen (specimen) 01/06/2012 5:03 AM EST 01/06/2012 5:03 AM EST Andi Rene MD POINT OF CARE TEST O GILDA Performing Organization Address [facility] de Phone Number [facility] * POCT GLUCOSE LAB USE ONLY (01/06/2012 3:16 AM EST) Glucose, POC 126 60 - 199 mg/dL [facility] Comment: Supplemental ranges: <110 mg/dL before meals <200 mg/dL all other times of the day Blood specimen (specimen) 01/06/2012 3:16 AM EST 01/06/2012 3:16 AM EST Andi Rene MD POINT OF CARE TEST O GILDA Performing Organization Address [facility] de Phone Number [facility] * POCT GLUCOSE LAB USE ONLY (01/06/2012 1:12 AM EST) Glucose, POC 135 60 - 199 mg/dL [facility] Comment: Supplemental ranges: <110 mg/dL before meals <200 mg/dL all other times of the day Blood specimen (specimen) 01/06/2012 1:12 AM EST 01/06/2012 1:12 AM EST Andi Rene MD POINT OF CARE TEST O RDERAHERNANDEZ Performing Organization Address [facility] de Phone Number [facility] * POCT GLUCOSE LAB USE ONLY (01/05/2012 11:52 PM EST) Glucose, POC 133 60 - 199 mg/dL [facility] Comment: Supplemental ranges: <110 mg/dL before meals <200 mg/dL all other times of the day Blood specimen (specimen) 01/05/2012 11:52 PM EST 01/05/2012 11:52 PM EST Andi Rene MD POINT OF CARE TEST O GILDA Performing Organization Address [facility] Phone Number [facility] * POCT GLUCOSE LAB USE ONLY (01/05/2012 10:54 PM EST) Glucose, POC 130 60 - 199 mg/dL [facility] Comment: Supplemental ranges: <110 mg/dL before meals <200 mg/dL all other times of the day Blood specimen (specimen) 01/05/2012 10:54 PM EST 01/05/2012 10:54 PM EST Andi Rene MD POINT OF CARE TEST O GILDA Performing Organization Address [facility] de Phone Number [facility] * POCT GLUCOSE LAB USE ONLY (01/05/2012 9:51 PM EST) Glucose, POC 132 60 - 199 mg/dL [facility] Comment: Supplemental ranges: <110 mg/dL before meals <200 mg/dL all other times of the day Blood specimen (specimen) 01/05/2012 9:51 PM EST 01/05/2012 9:51 PM EST Andi Rene MD POINT OF CARE TEST O RDERAHERNANDEZ Performing Organization Address [facility] Co de Phone Number [facility] MILLENNIUM * POCT GLUCOSE LAB USE ONLY (01/05/2012 8:50 PM EST) Glucose, POC 126 60 - 199 mg/dL [facility] Comment: Supplemental ranges: <110 mg/dL before meals <200 mg/dL all other times of the day Blood specimen (specimen) 01/05/2012 8:50 PM EST 01/05/2012 8:50 PM EST Andi Rene MD POINT OF CARE TEST O GILDA Performing Organization Address [facility] Co de Phone Number [facility] * POCT GLUCOSE LAB USE ONLY (01/05/2012 8:07 PM EST) Glucose, POC 126 60 - 199 mg/dL [facility] Comment: Supplemental ranges: <110 mg/dL before meals <200 mg/dL all other times of the day Blood specimen (specimen) 01/05/2012 8:07 PM EST 01/05/2012 8:07 PM EST Andi Rene MD POINT OF CARE TEST O GILDA Performing Organization Address [facility] de Phone Number [facility] * POCT GLUCOSE LAB USE ONLY (01/05/2012 6:57 PM EST) Glucose, POC 137 60 - 199 mg/dL [facility] Comment: Supplemental ranges: <110 mg/dL before meals <200 mg/dL all other times of the day Blood specimen (specimen) 01/05/2012 6:57 PM EST 01/05/2012 6:57 PM EST Andi Rene MD POINT OF CARE TEST O GILDA Performing Organization Address [facility] de Phone Number [facility] * POCT GLUCOSE LAB USE ONLY (01/05/2012 4:59 PM EST) Glucose, POC 147 60 - 199 mg/dL [facility] Comment: Supplemental ranges: <110 mg/dL before meals <200 mg/dL all other times of the day Blood specimen (specimen) 01/05/2012 4:59 PM EST 01/05/2012 4:59 PM EST Andi Rene MD POINT OF CARE TEST O GILDA Performing Organization Address [facility] de Phone Number [facility]DIGN[facility] * POCT GLUCOSE LAB USE ONLY (01/05/2012 1:05 PM EST) Glucose, POC 154 60 - 199 mg/dL [facility] MILLENNIUM Comment: Supplemental ranges: <110 mg/dL before meals <200 mg/dL all other times of the day Blood specimen (specimen) 01/05/2012 1:05 PM EST 01/05/2012 1:05 PM EST Andi Rene MD POINT OF CARE TEST O GILDA Performing Organization Address [facility] Phone Number [facility] * POCT GLUCOSE LAB USE ONLY (01/05/2012 12:42 PM EST) Glucose, POC 148 60 - 199 mg/dL [facility] MILLENNIUM Comment: Supplemental ranges: <110 mg/dL before meals <200 mg/dL all other times of the day Blood specimen (specimen) 01/05/2012 12:42 PM EST 01/05/2012 12:42 PM EST Andi Rene MD POINT OF CARE TEST O GILDA Performing Organization Address [facility] de Phone Number [facility] * POCT GLUCOSE LAB USE ONLY (01/05/2012 9:54 AM EST) Glucose, POC 145 60 - 199 mg/dL [facility] Comment: Supplemental ranges: <110 mg/dL before meals <200 mg/dL all other times of the day Blood specimen (specimen) 01/05/2012 9:54 AM EST 01/05/2012 9:54 AM EST Andi Rene MD POINT OF CARE TEST O RDTYESHA Performing Organization Address [facility] Co de Phone Number [facility] * POCT GLUCOSE LAB USE ONLY (01/05/2012 8:00 AM EST) Glucose, POC 168 60 - 199 mg/dL [facility] Comment: Supplemental ranges: <110 mg/dL before meals <200 mg/dL all other times of the day Blood specimen (specimen) 01/05/2012 8:00 AM EST 01/05/2012 8:00 AM EST Andi Rene MD POINT OF CARE TEST O GILDA Performing Organization Address [facility] de Phone Number [facility] * POCT GLUCOSE LAB USE ONLY (01/05/2012 5:58 AM EST) Glucose, POC 164 60 - 199 mg/dL [facility] Comment: Supplemental ranges: <110 mg/dL before meals <200 mg/dL all other times of the day Blood specimen (specimen) 01/05/2012 5:58 AM EST 01/05/2012 5:58 AM EST Andi Rene MD POINT OF CARE TEST O GILDA Performing Organization Address [facility] Phone Number [facility] * POCT GLUCOSE LAB USE ONLY (01/05/2012 4:12 AM EST) Glucose, POC 148 60 - 199 mg/dL [facility] Comment: Supplemental ranges: <110 mg/dL before meals <200 mg/dL all other times of the day Blood specimen (specimen) 01/05/2012 4:12 AM EST 01/05/2012 4:12 AM EST Andi Rene MD POINT OF CARE TEST O RDERAHERNANDEZ Performing Organization Address [facility] Co de Phone Number [facility] * POCT GLUCOSE LAB USE ONLY (01/05/2012 [...] (ABNORMAL) DIFFERENTIAL, AUTOMATED (01/05/2012 2:00 AM EST) Pathologist [facility] Neutrophil % 79.0(H) 34.0 - 71.0 % [...] EST Sarthak Pollard MD HEMATOLOGY ORDERABLE S Performing Organization Address [facility] Co de Phone Number [facility] * (ABNORMAL) Cardiac Enzymes (01/05/2012 2:00 AM EST) Troponin-T 0.39(H) <=0.03 ng/mL [facility] Comment: 0.03 ng/mL: Represents the 99th percentile upper reference limit for normals. >0.03 ng/mL: Elevated cardiac troponin T level indicative of myocardial damage. Diagnosis of acute, evolving or recent [place] requires a typical rise and gradual fall [...] consensus document of the Joint Society of Cardiology/[place] College [employer] Committee for the redefinition of myocardial infarction. Journal of the [place] College [employer] 2000; 36: 959-969] Creatine Kinase 436(H) 0 - 200 unit/L [facility] Blood specimen (specimen) 01/05/2012 2:00 AM EST 01/05/2012 2:11 AM EST Narrative Resulting Agency Comment Spec In Lab Sarthak Pollard MD CHEMISTRY ORDERABLES Performing Organization Address [facility]/ZIP Co de Phone Number ARIAN NELSON * Potassium (01/05/2012 2:00 AM EST) Potassium 4.4 3.5 - 5.0 mmol/L [facility] Comment: Please note: ??Patients with WBC >100,000 [...] Pollard MD CHEMISTRY ORDERABLES Performing Organization Address [facility] de Phone Number [facility] * (ABNORMAL) Glucose, fasting (01/05/2012 2:00 AM EST) Glucose Fasting 148(H) 65 - 99 mg/dL [facility] Comment: ?Fasting* Glucose Interpretive Criteria Normal ?65-99 [...] of Diabetes Mellitus, Position Statement from the [place] [employer]. ??Diabetes Care, Volume 33, Supplement 1, Nov 2009 Blood specimen (specimen) 01/05/2012 2:00 AM EST 01/05/2012 2:11 AM EST Narrative Resulting Agency Comment Spec In Lab Sarthak Pollard MD CHEMISTRY ORDERABLES Performing Organization Address [facility] de Phone Number [facility] * Creatinine, serum (01/05/2012 2:00 AM EST) Creatinine 0.86 0.80 - 1.50 mg/dL [facility] Est Glomerular Filtration Rate >60 >=60 [facility] Comment: The National Kidney Disease Education Program [...] Pollard MD CHEMISTRY ORDERABLES Performing Organization Address [facility] de Phone Number [facility] * BUN (01/05/2012 2:00 AM EST) Blood Urea Nitrogen 10 10 - 20 mg/dL [facility] Blood specimen (specimen) 01/05/2012 2:00 AM EST 01/05/2012 2:11 AM EST Narrative Resulting Agency Comment Spec In Lab Sarthak Pollard MD CHEMISTRY ORDERABLES Performing Organization Address [facility] Co de Phone Number [facility] * (ABNORMAL) CBC (with Diff) (01/05/2012 2:00 AM EST) White Blood Cell 24.6(H) 4.0 - 10.0 x10(3)/mc L [facility] MILLENNIUM Red Blood Cell 4.27(L) 4.63 - 6.08 x10(6)/mc L [facility] Hemoglobin 12.8(L) 13.7 - 17.5 gm/dL [facility] Hematocrit 37.9(L) 40.0 - 51.0 % [facility] Mean Cell Volume 88.8 79.0 - 92.0 fL [facility] Mean Cell Hemoglobin 30.0 25.6 - 32.2 pg [facility] Mean Cell Hemoglobin Concentration 33.8 32.0 - 36.5 gm/dL [facility] Platelet 294 145 - 370 x10(3)/mc L [facility] RDW Standard Deviation 42.2 35.0 - 46.0 fL [facility] RDW coefficient of variation 13.0 10.9 - 14.4 % [facility] Mean Platelet Volume 9.7 9.0 - 12.0 fL [facility] Blood specimen (specimen) 01/05/2012 2:00 AM EST 01/05/2012 2:11 AM EST Narrative Resulting Agency Comment Spec In Lab Sarthak Pollard MD HEMATOLOGY ORDERABLE S Performing Organization Address [facility] Co de Phone Number [facility] * POCT GLUCOSE LAB USE ONLY (01/04/2012 11:58 PM EST) Glucose, POC 136 60 - 199 mg/dL [facility] Comment: Supplemental ranges: <110 mg/dL before meals <200 mg/dL all other times of the day Blood specimen (specimen) 01/04/2012 11:58 PM EST 01/04/2012 11:58 PM EST Andi Rene MD POINT OF CARE TEST O RDERABLES Performing Organization Address [facility] Co de Phone Number [facility] * POCT GLUCOSE LAB USE ONLY (01/04/2012 9:00 PM EST) Glucose, POC 143 60 - 199 mg/dL [facility] Comment: Supplemental ranges: <110 mg/dL before meals <200 mg/dL all other times of the day Blood specimen (specimen) 01/04/2012 9:00 PM EST 01/04/2012 9:00 PM EST Andi Rene MD POINT OF CARE TEST O RDERABLES Performing Organization Address [facility] de Phone Number [facility] * GLUCOSE, RANDOM (01/04/2012 9:00 PM EST) Glucose 128 60 - 199 mg/dL [facility] Comment:Diabetes: >=200 mg/d L plus symptoms Blood specimen (specimen) 01/04/2012 9:00 PM EST 01/04/2012 9:08 PM EST Narrative Resulting Agency Comment Spec In Lab Sarthak Pollard MD CHEMISTRY ORDERABLES Performing Organization Address [facility] Phone Number [facility] * (ABNORMAL) Hemoglobin (01/04/2012 9:00 PM EST) Hemoglobin 13.6(L) 13.7 - 17.5 gm/dL [facility] Blood specimen (specimen) 01/04/2012 9:00 PM EST 01/04/2012 9:08 PM EST Narrative Resulting Agency Comment Spec In Lab Sarthak Pollard MD HEMATOLOGY ORDERABLE S Performing Organization Address [facility] Phone Number [facility] * Potassium (01/04/2012 9:00 PM EST) Potassium 4.7 3.5 - 5.0 mmol/L [facility] Comment: Please note: ??Patients with WBC >100,000 [...] Comment: Total Hemoglobin (in gm/dL) ?Based on [facility] Hematology ranges: ?Age ?Reference Range Less than [...] Comment: Total Hemoglobin (in gm/dL) ?Based on [facility] Hematology ranges: ?Age ?Reference Range Less than [...] Comment: Total Hemoglobin (in gm/dL) ?Based on [facility] Hematology ranges: ?Age ?Reference Range Less than [...] CARE TEST O RDERABLES Performing Organization Address [facility] Co de Phone Number [facility] * EKG 12 Lead (01/04/2012 4:26 PM EST) Ventricular rate 72 BPM MUSE SYSTEM Atrial Rate 72 BPM MUSE SYSTEM P-R Interval 174 ms MUSE SYSTEM QRS Duration 96 ms MUSE SYSTEM Q-T Interval 416 ms MUSE SYSTEM QTC Calculated (Bezet) 455 ms MUSE SYSTEM Calculated P [place] 48 degrees MUSE SYSTEM Calculated R [place] 23 degrees MUSE SYSTEM Calculated T [place] 71 degrees MUSE SYSTEM INTERPRETATION Normal sinus rhythm Normal ECG When compared with ECG of 30-DEC-2011 17:24, Vent. rate has decreased BY ??35 BPM Minimal criteria for Inferior infarct are no longer Present Nonspecific T wave abnormality, improved in Anterolateral leads Confirmed by fellow MD Steve, Luca ([id number]) on 01/05/2012 10:22:57 AM Confirmed by MD DELMIS, SARTHAK ([id number]) on 01/05/2012 1:30:02 PM MUSE SYSTEM 01/04/2012 4:26 PM EST 01/05/2012 1:30 PM EST Sarthak Pollard MD ECG ORDERABLES Performing Organization Address City/[facility]/ZIP Co de Phone Number MUSE SYSTEM * [...] EST Sarthak Pollard MD HEMATOLOGY ORDERABLE S [facility] * (ABNORMAL) BLOOD GAS 2 ARTERIAL (01/04/2012 3:28 PM EST) pH, Arterial 7.32(L) [facility] PCO2, Arterial 51(Critica l) mmHg [facility] Comment: Noted by instrumentation and controls technician. MTF PO2, Arterial 145(H) mmHg [facility] Bicarbonate, Arterial 25.5 mmol/L [facility] Base Excess, Arterial -0.7 mmol/L [facility] Hgb Blood Gas 11.1(L) gm/dL [facility] Comment: Total Hemoglobin (in gm/dL) ?Based on [facility] Hematology ranges: ?Age ?Reference Range Less than [...] CARE TEST O RDERABLES Performing Organization Address [facility] Co de Phone Number [facility] * THROMBIN TIME (01/04/2012 3:28 PM EST) Thrombin Time 17 15 - 20 sec [facility] Blood specimen (specimen) 01/04/2012 3:28 PM EST 01/04/2012 3:28 PM EST Narrative Resulting Agency Comment Spec In Lab Sarthak Pollard MD HEMATOLOGY ORDERABLE S Performing Organization Address [facility] Phone Number [facility] * FIBRINOGEN (01/04/2012 3:28 PM EST) Fibrinogen 364 200 - 470 mg/dL [facility] Comment:Called by: LEILANI, Read back by: AKANKSHA SAMPSON, Date/Time:01/04/12 15:45. Blood specimen (specimen) 01/04/2012 3:28 PM EST 01/04/2012 3:28 PM EST Narrative Resulting Agency Comment Spec In Lab Sarthak Pollard MD HEMATOLOGY ORDERABLE S Performing Organization Address [facility] Phone Number [facility] * APTT (01/04/2012 3:28 PM EST) Partial Thromboplastin Time 30 25 - 35 sec [facility] Comment: Recommended therapeutic PTT range for full dose unfractionated heparin is 80-114 seconds. Blood specimen (specimen) 01/04/2012 3:28 PM EST 01/04/2012 3:28 PM EST Narrative Resulting Agency Comment Spec In Lab Sarthak Pollard MD HEMATOLOGY ORDERABLE S Performing Organization Address [facility]/ZIP Co de Phone Number CERNER MILLENNIUM * (ABNORMAL) PROTHROMBIN TIME (01/04/2012 3:28 PM EST) Prothrombin Time 17.8(H) 11.9 - 14.7 sec [facility]ERN[facility] MILLENNIUM Comment: [facility] Transfusion Committee Guidelines: INR less than [...] ORDERABLE S ARIAN CERDAIUM * (ABNORMAL) CBC (WITH DIFF) (01/04/2012 3:28 [...] mmHg [facility]ERNER MILLENNIUM Comment: Noted by instrumentation and controls technician. MTF PO2, Arterial 296(H) mmHg CERNER MILLENNIUM Bicarbonate, Arterial 26.3(H) mmol/L CERNER MILLENNIUM Base Excess, Arterial 0.1 mmol/L [facility]ERN[facility] MILLENNIUM Hgb Blood Gas 10.2(L) gm/dL [facility]ERN[facility] MILLENNIUM Comment: Total Hemoglobin (in gm/dL) ?Based on [facility] Hematology ranges: ?Age ?Reference Range Less than [...] CARE TEST O RDERABLES Performing Organization Address City/[facility]/ZIP Co de Phone Number [facility] * FIBRINOGEN (01/04/2012 2:25 PM EST) Fibrinogen 356 200 - 470 mg/dL [facility] Comment:Called by: [facility], Read back by: AKANKSHA SAMPSON, Date/Time:01/04/12 14:49. Blood specimen (specimen) 01/04/2012 2:25 PM EST 01/04/2012 2:32 PM EST Narrative Resulting Agency Comment Spec In Lab Sarthak Pollard MD HEMATOLOGY ORDERABLE S Performing Organization Address City/[facility]/ZIP Co de Phone Number [facility] * PLATELET COUNT (01/04/2012 2:25 PM EST) [...] Comment: Total Hemoglobin (in gm/dL) ?Based on [facility] Hematology ranges: ?Age ?Reference Range Less than [...] CARE TEST O GILDA Performing Organization Address [facility] Co de Phone Number ARIAN NELSON * Prepare Coag Factors (Non-Hemophilia) (01/04/2012 12:05 PM EST) Dispensed? Yes ARIAN NELSON Blood specimen (specimen) 01/04/2012 12:05 PM EST 01/04/2012 12:01 PM EST Narrative Resulting Agency Comment Spec In Lab Inna Tovar MD BLOOD BANK PRODUCT O RDERAHERNANDEZ Performing Organization Address [facility] Co de Phone Number ARIAN NELSON * Prepare RBC (01/04/2012 12:05 PM EST) Dispensed? Yes ARIAN CERDAIUM Blood specimen (specimen) 01/04/2012 12:05 PM EST 01/04/2012 12:01 PM EST Narrative Resulting Agency Comment Spec In Lab Inna Tovar MD BLOOD BANK PRODUCT O RDERABLES [facility]ERNER MILLENNIUM * (ABNORMAL) DIFFERENTIAL, MANUAL (01/04/2012 4:40 AM [...] 0.0 - 0.2 x10(3)/mc L CERNER MILLENNIUM [place] Absolute Manual 0.3(H) 0.0 - 0.0 x10(3)/mc [...] ARIAN CAENNIUM * (ABNORMAL) BMP w/fasting Glucose (01/04/2012 4:40 [...] of Diabetes Mellitus, Position Statement from the [place] [employer]. ??Diabetes Care, Volume 33, Supplement [...] In Lab Andi Rene MD CHEMISTRY ORDERABLES [facility] * (ABNORMAL) CBC (with Diff) (01/04/2012 4:40 [...] MD HEMATOLOGY ORDERABLE S Performing Organization Address [facility] de Phone Number [facility] * (ABNORMAL) APTT (01/04/2012 4:40 AM EST) Partial Thromboplastin Time 103(H) 25 - 35 sec [facility] Comment: Recommended therapeutic PTT range for full dose unfractionated heparin is 80-114 seconds. Blood specimen (specimen) 01/04/2012 4:40 AM EST 01/04/2012 4:52 AM EST Narrative Resulting Agency Comment Spec In Lab Sarthak Pollard MD HEMATOLOGY ORDERABLE S Performing Organization Address [facility] de Phone Number [facility] * (ABNORMAL) APTT (01/03/2012 7:38 PM EST) Partial Thromboplastin Time 98(H) 25 - 35 sec [facility] Comment: Recommended therapeutic PTT range for full dose unfractionated heparin is 80-114 seconds. Blood specimen (specimen) 01/03/2012 7:38 PM EST 01/03/2012 7:53 PM EST Narrative Resulting Agency Comment Spec In Lab Sarthak Pollard MD HEMATOLOGY ORDERABLE S Performing Organization Address [facility] Co de Phone Number [facility] * (ABNORMAL) APTT (01/03/2012 12:17 PM EST) [...] MD HEMATOLOGY ORDERABLE S Performing Organization Address [facility] Phone Number [facility] * ANTIBODY SCREEN (01/03/2012 6:15 AM EST) Ab Screen Interp Negative [facility] Expires at [id number] on: [id number] [facility] Blood specimen (specimen) 01/03/2012 6:15 AM EST 01/03/2012 6:35 AM EST Narrative Resulting Agency Comment Spec In Lab Sarthak Pollard MD BLOOD BANK LAB ORDER RANDELL Performing Organization Address [facility] Phone Number [facility] * ABO/RH TYPING (01/03/2012 6:15 AM EST) ABORH Type A Pos [facility] Blood specimen (specimen) 01/03/2012 6:15 AM EST 01/03/2012 6:35 AM EST Narrative Resulting Agency Comment Spec In Lab Sarthak Pollard MD BLOOD BANK LAB ORDER RANDELL Performing Organization Address [facility] Phone Number [facility] * (ABNORMAL) APTT (01/03/2012 6:15 AM EST) Partial Thromboplastin Time 96(H) 25 - 35 sec [facility] Comment: Recommended therapeutic PTT range for full dose unfractionated heparin is 80-114 seconds. Blood specimen (specimen) 01/03/2012 6:15 AM EST 01/03/2012 6:23 AM EST Narrative Resulting Agency Comment Spec In Lab Sarthak Pollard MD HEMATOLOGY ORDERABLE S Performing Organization Address [facility] de Phone Number [facility] * (ABNORMAL) BMP w/fasting Glucose (01/03/2012 6:15 [...] of Diabetes Mellitus, Position Statement from the [place] [employer]. ??Diabetes Care, Volume 33, Supplement [...] MD HEMATOLOGY ORDERABLE S Performing Organization Address [facility] Co de Phone Number ARIAN CAENNIUM * (ABNORMAL) APTT (01/02/2012 11:21 PM EST) Partial Thromboplastin Time 69(H) 25 - 35 sec CERNER MILLENNIUM Comment: Recommended therapeutic PTT range for full dose unfractionated heparin is 80-114 seconds. Blood specimen (specimen) 01/02/2012 11:21 PM EST 01/02/2012 11:24 PM EST Narrative Resulting Agency Comment Spec In Lab Sarthak Pollard MD HEMATOLOGY ORDERABLE S Performing Organization Address [facility] Phone Number CERBRIAN CAENNIUM * (ABNORMAL) APTT (01/02/2012 5:32 PM EST) Partial Thromboplastin Time 53(H) 25 - 35 sec [facility]ERN[facility] MILLENNIUM Comment: Recommended therapeutic PTT range for full dose unfractionated heparin is 80-114 seconds. Blood specimen (specimen) 01/02/2012 5:32 PM EST 01/02/2012 5:38 PM EST Narrative Resulting Agency Comment Spec In Lab Sarthak Pollard MD HEMATOLOGY ORDERABLE S Performing Organization Address [facility] de Phone Number CERBRIAN CAENNIUM * (ABNORMAL) APTT (01/02/2012 11:56 [...] CERBRIAN MILLENNIUM * (ABNORMAL) BMP w/fasting Glucose (01/02/2012 [...] of Diabetes Mellitus, Position Statement from the [place] [employer]. ??Diabetes Care, Volume 33, Supplement [...] ARIAN CERDAIUM * (ABNORMAL) CBC (with Diff) (01/02/2012 6:02 [...] MD HEMATOLOGY ORDERABLE S Performing Organization Address City/[facility]/ZIP Co de Phone Number [facility] * (ABNORMAL) APTT (01/02/2012 12:23 AM EST) Partial Thromboplastin Time 36(H) 25 - 35 sec CERNER MILLENNIUM Comment: Recommended therapeutic PTT range for full dose unfractionated heparin is 80-114 seconds. Blood specimen (specimen) 01/02/2012 12:23 AM EST 01/02/2012 12:28 AM EST Narrative Resulting Agency Comment Spec In Lab Sarthak Pollard MD HEMATOLOGY ORDERABLE S Performing Organization Address City/[facility]/ZIP Co de Phone Number [facility] * (ABNORMAL) DIFFERENTIAL, AUTOMATED (01/01/2012 6:37 PM [...] Hemoglobin Concentration 34.4 32.0 - 36.5 gm/dL [facility] Platelet 262 145 - 370 x10(3)/mc L [facility] RDW Standard Deviation 41.6 35.0 - 46.0 fL [facility] RDW coefficient of variation 12.9 10.9 - 14.4 % [facility] Mean Platelet Volume 10.1 9.0 - 12.0 fL [facility] Blood specimen (specimen) 01/01/2012 6:37 PM EST 01/01/2012 6:43 PM EST Narrative Resulting Agency Comment Spec In Lab Sarthak Pollard MD HEMATOLOGY ORDERABLE S Performing Organization Address [facility] Co de Phone Number [facility] * APTT (01/01/2012 6:37 PM EST) Pathologist [facility] Partial Thromboplastin Time 32 25 - 35 sec [facility] Comment: Recommended therapeutic PTT range for full dose unfractionated heparin is 80-114 seconds. Blood specimen (specimen) 01/01/2012 6:37 PM EST 01/01/2012 6:43 PM EST Narrative Resulting Agency Comment Spec In Lab Sarthak Pollard MD HEMATOLOGY ORDERABLE S Performing Organization Address [facility] Phone Number [facility] * POCT GLUCOSE LAB USE ONLY (01/01/2012 12:02 PM EST) Pathologist [facility] Glucose, POC 99 60 - 199 mg/dL [facility] Comment: Supplemental ranges: <110 mg/dL before meals <200 mg/dL all other times of the day Blood specimen (specimen) 01/01/2012 12:02 PM EST 01/01/2012 12:02 PM EST Andi Rene MD POINT OF CARE TEST O RDERABLES Performing Organization Address [facility] Co de Phone Number [facility] * (ABNORMAL) APTT (01/01/2012 11:59 AM EST) Partial Thromboplastin Time 108(H) 25 - 35 sec [facility]ERN[facility] MILLENNIUM Comment: Recommended therapeutic PTT range for full dose unfractionated heparin is 80-114 seconds. Blood specimen (specimen) 01/01/2012 11:59 AM EST 01/01/2012 12:06 PM EST Narrative Resulting Agency Comment Spec In Lab Andi Rene MD HEMATOLOGY ORDERABLE S ARIAN CERDAIUM * XR chest routine PA [...] Absolute 0.07(H) 0.00 - 0.05 x10(3)/mc L [facility] Blood specimen (specimen) 01/01/2012 5:19 AM EST 01/01/2012 5:36 AM EST Remigio Ceron MD HEMATOLOGY ORDERABLE S Performing Organization Address [facility] Co de Phone Number [facility] * (ABNORMAL) APTT (01/01/2012 5:19 AM EST) Partial Thromboplastin Time 105(H) 25 - 35 sec [facility] Comment: Recommended therapeutic PTT range for full dose unfractionated heparin is 80-114 seconds. Blood specimen (specimen) 01/01/2012 5:19 AM EST 01/01/2012 5:36 AM EST Narrative Resulting Agency Comment Spec In Lab Remigio Ceron MD HEMATOLOGY ORDERABLE S Performing Organization Address [facility] Co de Phone Number [facility] * (ABNORMAL) BMP w/fasting Glucose (01/01/2012 5:19 [...] of Diabetes Mellitus, Position Statement from the [place] [employer]. ??Diabetes Care, Volume 33, Supplement [...] MD HEMATOLOGY ORDERABLE S Performing Organization Address [facility]/ZIP Co de Phone Number [facility] * (ABNORMAL) APTT (12/31/2011 11:01 PM EST) Partial Thromboplastin Time 72(H) 25 - 35 sec [facility] Comment: Recommended therapeutic PTT range for full dose unfractionated heparin is 80-114 seconds. Blood specimen (specimen) 12/31/2011 11:01 PM EST 12/31/2011 11:18 PM EST Narrative Resulting Agency Comment Spec In Lab Andi Rene MD HEMATOLOGY ORDERABLE S Performing Organization Address [facility] de Phone Number [facility] * Upper Respiratory Culture Throat (12/31/2011 9:55 PM EST) Upper Respiratory Culture ? Patient Name: ZACK JR., GEOVANNA P ? Ordered By: ANDI RENE ? MR#: [id number] ?LOC: ??[facility] ? /Sex: ??1975 (36 years), ? Male ? PROCEDURE: Upper Respiratory Culture ?SOURCE: Throat ? COLLECTED: 12/31/2011 21:55 ? STARTED: 12/31/2011 22:16 ? FINAL REPORT ? Final Report ? Verified:2011 08:12 ? Beta Hemolytic Streptococci, Group A isolated ? PRELIMINARY REPORT ? Preliminary Report ? Verified:2011 09:46 ? Beta Hemolytic Streptococci, Group A isolated ? [facility] Specimen from throat (specimen) 12/31/2011 9:55 PM EST 12/31/2011 10:16 PM EST Narrative Resulting Agency Comment Spec In Lab Andi Rene MD MICROBIOLOGY - GENER AL ORDERABLES Performing Organization Address [facility] Co de Phone Number [facility] * (ABNORMAL) APTT (12/31/2011 4:34 PM EST) Partial Thromboplastin Time 66(H) 25 - 35 sec [facility] Comment: Recommended therapeutic PTT range for full dose unfractionated heparin is 80-114 seconds. Blood specimen (specimen) 12/31/2011 4:34 PM EST 12/31/2011 4:39 PM EST Narrative Resulting Agency Comment Spec In Lab Andi Rene MD HEMATOLOGY ORDERABLE S Performing Organization Address [facility] Co de Phone Number [facility] * Duplex Study for DVT, Bilat legs (12/31/2011 11:07 AM EST) VB Text Report Department: Vascular Surgery Lab Patient: [id number] (ZACK, GEOVANNA) CPT Code: 90554 ICD-9: 780.6 Referring Physician: ANDI RENE Indication: [...] 10:39 AM EST) Smear Review Report ? [facility] ? Provider: ?? ANDI RENE ?Pt. Name: ?? ZACK REYNA, GEOVANNA [place] ? Acc #: ?[id number] ? Pt. ? Col Date: ?? 12/31/2011 [...] Verified by: ? Juan Carlos DE, Song Flores. ? Hematopathologist ? (Electronic Signature) ? The [...] ? and confirm Dr. Katrin Chakraborty's diagnosis. JILLIANBRIAN CAPETR 12/31/2011 10:3 9 AM EST Andi Rene MD HEMATOLOGY ORDERABLE S [facility] * (ABNORMAL) DIFFERENTIAL, MANUAL (12/31/2011 9:44 AM [...] 9:44 AM EST 12/31/2011 10:12 AM EST Andiemely Rene MD HEMATOLOGY ORDERABLE S CERNER MILLENNIUM [...] Hemoglobin Concentration 33.9 32.0 - 36.5 gm/dL [facility] Platelet 236 145 - 370 x10(3)/mc L [facility] RDW Standard Deviation 42.7 35.0 - 46.0 fL [facility] RDW coefficient of variation 13.1 10.9 - 14.4 % [facility] Mean Platelet Volume 10.4 9.0 - 12.0 fL [facility] Blood specimen (specimen) 12/31/2011 9:44 AM EST 12/31/2011 10:12 AM EST Narrative Resulting Agency Comment Spec In Lab Andi Rene MD HEMATOLOGY ORDERABLE S Performing Organization Address [facility] de Phone Number [facility] * Lactate Dehydrogenase (12/31/2011 9:44 AM EST) Lactate Dehydrogenase 123 110 - 220 unit/L [facility] Blood specimen (specimen) 12/31/2011 9:44 AM EST 12/31/2011 10:12 AM EST Narrative Resulting Agency Comment Spec In Lab Andi Rene MD CHEMISTRY ORDERABLES Performing Organization Address [facility] de Phone Number [facility] * Peripheral Smear Review (12/31/2011 9:44 AM EST) Peripheral Smear Review See Comment [facility] Comment: When completed by the Pathologist, report [id number] will display under Hematology Reports. Blood specimen (specimen) 12/31/2011 9:44 AM EST 12/31/2011 10:12 AM EST Narrative Resulting Agency Comment Spec In Lab Andi Rene MD HEMATOLOGY ORDERABLE S Performing Organization Address [facility] de Phone Number [facility] * (ABNORMAL) APTT (12/31/2011 9:44 AM EST) Partial Thromboplastin Time 50(H) 25 - 35 sec [facility] Comment: Recommended therapeutic PTT range [...] S ARIAN CERDAIUM * (ABNORMAL) APTT (12/31/2011 3:38 AM EST) Partial Thromboplastin Time 47(H) 25 - 35 sec [facility]NIUM Comment: Recommended therapeutic PTT range for full dose unfractionated heparin is 80-114 seconds. Blood specimen (specimen) 12/31/2011 3:38 AM EST 12/31/2011 3:50 AM EST Narrative Resulting Agency Comment Spec In Lab Andi Rene MD HEMATOLOGY ORDERABLE S Performing Organization Address City/[facility]/ZIP Co de Phone Number ARIAN NELSON * (ABNORMAL) BMP w/fasting Glucose (12/31/2011 3:38 [...] of Diabetes Mellitus, Position Statement from the [place] [employer]. ??Diabetes Care, Volume 33, Supplement [...] ARIAN NELSON * (ABNORMAL) CBC (with Diff) (12/31/2011 3:38 [...] ORDERABLE S ARIAN CAENNIUM * (ABNORMAL) APTT (12/30/2011 9:02 PM EST) Partial Thromboplastin Time 37(H) 25 - 35 sec [facility]ILL[facility]NI[facility] Comment: Recommended therapeutic PTT range for full dose unfractionated heparin is 80-114 seconds. Blood specimen (specimen) 12/30/2011 9:02 PM EST 12/30/2011 9:10 PM EST Narrative Resulting Agency Comment Spec In Lab Andi Rene MD HEMATOLOGY ORDERABLE S [facility] * EKG 12 Lead (12/30/2011 5:24 PM EST) Ventricular rate 107 BPM MUSE SYSTEM Atrial Rate 107 BPM MUSE SYSTEM P-R Interval 160 ms MUSE SYSTEM QRS Duration 104 ms MUSE SYSTEM Q-T Interval 310 ms MUSE SYSTEM QTC Calculated (Bezet) 413 ms MUSE SYSTEM Calculated P [place] 24 degrees MUSE SYSTEM Calculated R [place] 25 degrees MUSE SYSTEM Calculated T [place] 54 degrees MUSE SYSTEM INTERPRETATION Sinus tachycardia [...] JR ?Ordered By: ANDI RENE ? MR#: [id number] ?LOC: [facility] ? /Sex: ??1975 (36 years), [...] JR ?Ordered By: ANDI RENE ? MR#: [id number] ?LOC: [facility] ? /Sex: ??1975 (36 years), [...] MD HEMATOLOGY ORDERABLE S Performing Organization Address [facility] de Phone Number [facility] * ANTIBODY SCREEN (12/30/2011 4:25 PM EST) Ab Screen Interp Negative [facility] Expires at [id number] on: [id number] [facility] Blood specimen (specimen) 12/30/2011 4:25 PM EST 12/30/2011 4:36 PM EST Narrative Resulting Agency Comment Spec In Lab Andi Rene MD BLOOD BANK LAB ORDER RANDELL Performing Organization Address [facility] Phone Number [facility] * ABO/RH TYPING (12/30/2011 4:25 PM EST) ABORH Type A Pos [facility] Blood specimen (specimen) 12/30/2011 4:25 PM EST 12/30/2011 4:36 PM EST Narrative Resulting Agency Comment Spec In Lab Andi Rene MD BLOOD BANK LAB ORDER RANDELL Performing Organization Address [facility] Phone Number [facility] * Glucose, random (12/30/2011 4:25 PM EST) Glucose 126 60 - 199 mg/dL [facility] Comment:Diabetes: >=200 mg/d L plus symptoms Blood specimen (specimen) 12/30/2011 4:25 PM EST 12/30/2011 4:43 PM EST Narrative Resulting Agency Comment Spec In Lab Andi Rene MD CHEMISTRY ORDERABLES Performing Organization Address [facility] Phone Number [facility] * (ABNORMAL) CBC (with Diff) (12/30/2011 4:25 [...] MD HEMATOLOGY ORDERABLE S Performing Organization Address City/[facility] Co de Phone Number [facility] * APTT (12/30/2011 2:08 PM EST) Partial Thromboplastin Time 31 25 - 35 sec [facility] Comment: Recommended therapeutic PTT range for full dose unfractionated heparin is 80-114 seconds. Blood specimen (specimen) 12/30/2011 2:08 PM EST 12/30/2011 2:27 PM EST Narrative Resulting Agency Comment Spec In Lab Andi Rene MD HEMATOLOGY ORDERABLE S [facility] * Cardiac Enzymes (12/30/2011 2:08 PM EST) Pathologist [facility] Troponin-T 0.03 <=0.03 ng/mL [facility] Comment: 0.03 ng/mL: Represents the 99th percentile upper reference limit for normals. >0.03 ng/mL: Elevated cardiac troponin T level indicative of myocardial damage. Diagnosis of acute, evolving or recent [place] requires a typical rise and gradual fall [...] consensus document of the Joint Society of Cardiology/[place] [employer] Committee for the redefinition of myocardial infarction. Journal of the [place] [employer] 2000; 36: 959-969] Creatine Kinase 72 0 - 200 unit/L [facility] Blood specimen (specimen) 12/30/2011 2:08 PM EST 12/30/2011 2:27 PM EST Narrative Resulting Agency Comment Spec In Lab Remigio Ceron MD CHEMISTRY ORDERABLES Performing Organization Address [facility] Co de Phone Number [facility] * HIV (12/30/2011 10:18 AM EST) Pathologist [facility] [place] HIV 1/2 Ab Negative [facility] Blood specimen (specimen) 12/30/2011 10:18 AM EST 12/30/2011 10:28 AM EST Narrative Resulting Agency Comment Spec In Lab Andi Rene MD CHEMISTRY ORDERABLES Performing Organization Address City/[facility]/ZIP Co de Phone Number [facility] * Echo Transthoracic (Complete) (12/30/2011 9:47 AM EST) [facility] EF 55 HEARTLAB SYSTEM Anatomical Region Laterality Modality Other 12/30/2011 Narrative 12/30/2011 10:02 AM EST Procedure: ? Transthoracic Echocardiogram Patient: ? ZACK Llanos ?(Age): 1975(36) Med Rec#: ?[id number] ? Sex: ?M ? Site Loc: ?[facility] ? Ht / Wt: ??180(cm)/124(kg) Pt. Loc: ? Adult Floor ?BSA: ?2.41 Study Date: ?12/30/2011 ? Pt. Type: Inpatient Tape: ? Referring: Remigio Ceron Clicker Operator: Benjamin Lundberg Diagnosis: ??Chest pain (786.50) CPT Code(s): ??Spectral Doppler (92238), ??Color Doppler (53517), ??Echo Full (91805), Indication(s): ??Chest Pain Rhythm: HR ?BP ?106/60 [...] 12/30/2011 10:01:28 Images reviewed and interpretation verified [facility]iac [facility]trasound [facility] Procedure Note Zak Coley MD - 12/30/2011 Procedure: Transthoracic Echocardiogram Patient: ZACK Llanos (Age): 1975(36) Med Rec#: [id number] Sex: M Site Loc: [facility] Ht / Wt: 180(cm)/124(kg) Pt. Loc: Adult Floor BSA: 2.41 Study Date: 12/30/2011 Pt. Type: Inpatient Tape: Referring: Remigio Ceron Clicker Operator: Benjamin Lundberg Diagnosis: Chest pain (786.50) CPT Code(s): Spectral Doppler (66190), Color Doppler (86107), Echo Full (82663), Indication(s): Chest Pain Rhythm: HR BP 106/60 [...] 12/30/2011 10:01:28 Images reviewed and interpretation verified [facility]ound [facility] Remigio Ceron MD ECHO ORDERABLES * (ABNORMAL) Urinalysis with microscopic (12/30/2011 9:32 AM EST) Pathologist [facility] [place] Glucose, Urine Dipstick Negative Negative mg/dL CERNER [...] Urine Dipstick Clear Clear CERNER MILLENNIUM Specific [place] Urine Automated 1.019 1.002 - 1.030 CERNER [...] In Lab Andi Rene MD URINE ORDERABLES [facility] * Rapid Qual Drug Screen, Urine ([facility]) (12/30/2011 9:32 AM EST) Pathologist [facility] U IVAN Screen See Note [facility] Comment: Urine drug of abuse results: ?Amphetamines [...] testing device is being used in the [facility] Chemistry Laboratory. Please contact the chemistry laboratory at [phone] with questions. Urine specimen (specimen) 12/30/2011 9:32 AM EST 12/30/2011 9:45 AM EST Narrative Resulting Agency Comment Spec In Lab Andi Rene MD URINE ORDERABLES [facility] * Urine culture Clean Catch Urine (12/30/2011 9:31 AM EST) Urine Culture ? Patient Name: ZACK GEOVANNA Llanos ?Ordered By: ANDI RENE ? MR#: [id number] ?LOC: ??[facility] ? /Sex: ?? 4 (36 [...] EST Remigio Ceron MD HEMATOLOGY ORDERABLE S CERBRIAN CERDAIUM * (ABNORMAL) CBC (with Diff) (12/30/2011 [...] Hemoglobin Concentration 33.7 32.0 - 36.5 gm/dL ARIAN NELSON Platelet 230 145 - 370 x10(3)/mc L ARIAN NELSON RDW Standard Deviation 42.2 35.0 - 46.0 fL ARIAN NELSON RDW coefficient of variation 13.0 10.9 - 14.4 % ARIAN NELSON Mean Platelet Volume 10.6 9.0 - 12.0 fL ARIAN NELSON Blood specimen (specimen) 12/30/2011 7:07 AM EST 12/30/2011 7:18 AM EST Narrative Resulting Agency Comment Spec In Lab Remigio Ceron MD HEMATOLOGY ORDERABLE S ARIAN NELSON * Hemoglobin A1c (12/30/2011 7:07 AM EST) Hemoglobin A1c 6.1 4.3 - 6.1 % ARIAN NELSON Estimated Average Glucose 128 mg/dL ARIAN NELSON Comment: eAG equivalents for [...] into estimated average glucose values. ??Diabetes Care 2008:31(8):2886-3796. Blood specimen (specimen) 12/30/2011 7:07 AM EST 12/30/2011 7:18 AM EST Narrative Resulting Agency Comment Spec In Lab Remigio Ceron MD CHEMISTRY ORDERABLES Performing Organization Address [facility] de Phone Number [facility] * (ABNORMAL) APTT (12/30/2011 5:45 AM EST) Partial Thromboplastin Time 45(H) 25 - 35 sec [facility] Comment: Recommended therapeutic PTT range for full dose unfractionated heparin is 80-114 seconds. Blood specimen (specimen) 12/30/2011 5:45 AM EST 12/30/2011 6:10 AM EST Narrative Resulting Agency Comment Spec In Lab Andi Rene MD HEMATOLOGY ORDERABLE S Performing Organization Address [facility] de Phone Number [facility] * (ABNORMAL) Glucose, fasting (12/30/2011 5:45 AM EST) Glucose Fasting 108(H) 65 - 99 mg/dL [facility] Comment: ?Fasting* Glucose Interpretive Criteria Normal ?65-99 [...] of Diabetes Mellitus, Position Statement from the [place] Diabetes Association. ??Diabetes Care, Volume 33, Supplement 1, Nov 2009 Blood specimen (specimen) 12/30/2011 5:45 AM EST 12/30/2011 6:10 AM EST Narrative Resulting Agency Comment Spec In Lab Remigio Ceron MD CHEMISTRY ORDERABLES Performing Organization Address [facility] de Phone Number [facility] * (ABNORMAL) Triglyceride (12/30/2011 5:45 AM EST) Triglyceride 245(H) <=149 mg/dL [facility] Comment: Reference Range: Normal triglycerides: ??<150 mg/dL Borderline high: ??150-199 mg/dL High: ??200-499 mg/dL Very high: ??>nq=453 mg/dL ELISEO 2001; 285(19):5044-0226 Blood specimen (specimen) 12/30/2011 5:45 AM EST 12/30/2011 6:10 AM EST Narrative Resulting Agency Comment Spec In Lab Remigio Ceron MD CHEMISTRY ORDERABLES Performing Organization Address [facility] de Phone Number [facility] * (ABNORMAL) HDL/Cholesterol Profile (12/30/2011 5:45 AM EST) Cholesterol, Total 170 <=199 mg/dL [facility] Comment: Recommendations of the NCEP Adult Treatment Panel for the following risk cutoff thresholds for the [place] population: Desirable: <200 mg/dL Borderline High: 200-239 mg/dL High: > or = 240 mg/dL HDL Cholesterol 36(L) >=40 mg/dL [facility] Comment: Reference range: ??Low HDL: ?? < 40 mg/dL ??Normal: ?40-60 mg/dL ??Desirable: > 60 mg/dL ELISEO 2001; 285(19):3739-5998 Cholesterol/HDL Ratio 4.7 ratio [facility] Comment: A Cholesterol to HDL ratio below 4:1 is desirable. ??Studies suggest that increased CAD risk occurs at ratios above 5 for females and above 6 for men. ? [place] Heart Association ??(http://www.americanheart.org) ? Jazmine Int Med, 1994; 121:641 ? AM J Med, 1998; 105(1A):48S Blood specimen (specimen) 12/30/2011 5:45 AM EST 12/30/2011 6:10 AM EST Narrative Resulting Agency Comment Spec In Lab Remigio Ceron MD CHEMISTRY ORDERABLES Performing Organization Address [facility] Co de Phone Number [facility] * (ABNORMAL) LDL Cholesterol, Direct (12/30/2011 5:45 AM EST) LDL Cholesterol, Direct 110(H) <=99 mg/dL [facility] Comment: The National Cholesterol Education Program (NCEP) has set the following guidelines for LDL Cholesterol: Reference range: ?? Optimal: ?<100 mg/dL ?? Near Optimal/Above Optimal: ?? 100-129 mg/dL ?? Borderline high: ?130-159 mg/dL ?? High: ? 160-189 mg/dL ?? Very high: ?>gx=647 mg/dL ELISEO 2001: 285(19):2363-3414 Blood specimen (specimen) 12/30/2011 5:45 AM EST 12/30/2011 6:10 AM EST Narrative Resulting Agency Comment Spec In Lab Remigio Ceron MD CHEMISTRY ORDERABLES Performing Organization Address [facility] Co de Phone Number [facility] * (ABNORMAL) Cardiac Enzymes (12/30/2011 5:45 AM EST) Troponin-T 0.05(H) <=0.03 ng/mL [facility] Comment: 0.03 ng/mL: Represents the 99th percentile upper reference limit for normals. >0.03 ng/mL: Elevated cardiac troponin T level indicative of myocardial damage. Diagnosis of acute, evolving or recent [place] requires a typical rise and gradual fall [...] consensus document of the Joint Society of Cardiology/[place] College of Cardiology Committee for the redefinition of myocardial infarction. Journal of the [place] College of Cardiology 2000; 36: 959-969] Creatine Kinase 82 0 - 200 unit/L ARIAN CERDAIUM Blood specimen (specimen) 12/30/2011 5:45 AM EST [...] x10(3)/mc L ARIAN CERDAIUM Blood specimen (specimen) 12/29/2011 11:29 PM EST 12/29/2011 11:34 PM EST Remigio Ceron MD HEMATOLOGY ORDERABLE S Performing Organization Address [facility] Co de Phone Number ARIAN NELSON * (ABNORMAL) Cardiac Enzymes (12/29/2011 11:29 PM EST) Troponin-T 0.08(H) <=0.03 ng/mL [facility] Comment: 0.03 ng/mL: Represents the 99th percentile upper reference limit for normals. >0.03 ng/mL: Elevated cardiac troponin T level indicative of myocardial damage. Diagnosis of acute, evolving or recent [place] requires a typical rise and gradual fall [...] consensus document of the Joint Society of Cardiology/[place] College of Cardiology Committee for the redefinition of myocardial infarction. Journal of the [place] College of Cardiology 2000; 36: 959-969] Creatine Kinase 86 0 - 200 unit/L [facility] Blood specimen (specimen) 12/29/2011 11:29 PM EST 12/29/2011 11:34 PM EST Narrative Resulting Agency Comment Spec In Lab Remigio Ceron MD CHEMISTRY ORDERABLES Performing Organization Address [facility] Co de Phone Number ARIAN NELSON * Prothrombin Time (12/29/2011 11:29 PM EST) Prothrombin Time 13.2 11.9 - 14.7 sec CERNER MILLENNIUM Comment: [facility] Transfusion Committee Guidelines: INR less than [...] MD HEMATOLOGY ORDERABLE S Performing Organization Address [facility] de Phone Number CERBRIAN CAENNIUM * Hepatic Function Panel (12/29/2011 11:29 PM EST) Pathologist [facility] Protein, Total 7.3 6.4 - 8.3 gm/dL [...] Ceron MD CHEMISTRY ORDERABLES Performing Organization Address [facility] Co de Phone Number ARIAN CERDAIUM * pro-Brain Natriuretic Peptide (12/29/2011 11:29 PM EST) Pathologist [facility] NT-proBNP 114 <=125 pg/mL CERNER MILLENNIUM Blood specimen (specimen) 12/29/2011 11:29 PM EST 12/29/2011 11:34 PM EST Narrative Resulting Agency Comment Spec In Lab Remigio Ceron MD CHEMISTRY ORDERABLES CERBRIAN CERDAIUM * TSH (12/29/2011 11:29 PM EST) Thyroid Stimulating Hormone 0.39 0.27 - 4.20 mcIU/mL CERNER MILLENNIUM Blood specimen (specimen) 12/29/2011 11:29 PM EST 12/29/2011 11:34 PM EST Narrative Resulting Agency Comment Spec In Lab Remigio Ceron MD CHEMISTRY ORDERABLES ARIAN CAENNIUM * Phosphorus (12/29/2011 11:29 PM EST) Pathologist [facility] Phosphorus 3.1 2.5 - 4.5 mg/dL CERNER MILLENNIUM Blood specimen (specimen) 12/29/2011 11:29 PM EST 12/29/2011 11:34 PM EST Narrative Resulting Agency Comment Spec In Lab Remigio Ceron MD CHEMISTRY ORDERABLES Performing Organization Address [facility] Co de Phone Number ARIAN CAENNIUM * Magnesium (12/29/2011 11:29 PM EST) Pathologist [facility] Magnesium 0.83 0.69 - 1.07 mmol/L CERNER MILLENNIUM Blood specimen (specimen) 12/29/2011 11:29 PM EST 12/29/2011 11:34 PM EST Narrative Resulting Agency Comment Spec In Lab Remigio Ceron MD CHEMISTRY ORDERABLES Performing Organization Address City/[facility]/ZIP Co de Phone Number CERBRIAN CAENNIUM * (ABNORMAL) Basic [...] Ceron MD CHEMISTRY ORDERABLES Performing Organization Address City/[facility]/ZIP Co de Phone Number ARIAN CERDAIUM * (ABNORMAL) CBC (with Diff) (12/29/2011 11:29 [...] MD HEMATOLOGY ORDERABLE S ARIAN NELSON * APTT (12/29/2011 11:29 PM EST) Partial Thromboplastin Time 34 25 - 35 sec CERNER MILLENNIUM Comment: Recommended therapeutic PTT range for full dose unfractionated heparin is 80-114 seconds. Blood specimen (specimen) 12/29/2011 11:29 PM EST 12/29/2011 11:34 PM EST Narrative Resulting Agency Comment Spec In Lab Remigio Ceron MD HEMATOLOGY ORDERABLE S Performing Organization Address City/[facility]/ZIP Co de Phone Number ARIAN NELSON * EKG 12 Lead (12/29/2011 11:13 PM EST) Ventricular rate 108 BPM MUSE SYSTEM Atrial Rate 108 BPM MUSE SYSTEM P-R Interval 150 ms MUSE SYSTEM QRS Duration 106 ms MUSE SYSTEM Q-T Interval 340 ms MUSE SYSTEM QTC Calculated (Bezet) 455 ms MUSE SYSTEM Calculated P [place] 19 degrees MUSE SYSTEM Calculated R [place] 31 degrees MUSE SYSTEM Calculated T [place] 51 degrees MUSE SYSTEM INTERPRETATION Sinus tachycardia Nonspecific T wave abnormality Abnormal ECG No previous ECGs available Confirmed by Madi FORD MD, Nathaniel (58) on 12/30/2011 2:22:07 PM MUSE SYSTEM 12/29/2011 11:1 3 PM EST 12/30/2011 2:22 PM EST Remigio Ceron MD ECG ORDERABLES Performing Organization Address City/[facility]/ZIP Co de Phone Number MUSE SYSTEM documented [...] Chong RN) 1000 (Given - Provider: Sangita Self, DAVID) insulin aspart (NOVOLOG) PEN injection 1-4 Units [...] Discontinued, Routine 1100 (Given - Provider: Sangita Sefl RN) metoprolol tartrate (LOPRESSOR) tablet 25 mg 25 mg, Oral, EVERY 12 HOURS SCHEDULED (2 times per day), First dose on Wed01/05/12 at 1200, Until Discontinued, Routine 09 (Given - Provider: Michelle Chong RN)2008 (Given - Provider: Hermila Dumas, DAVID) 09 (Given - Provider: Michelle Chong RN)2000 [...] 0900 (Given - Provider: Sangita Self RN) protriptyline [...] dose on Wed01/05/12 at 1915, Until Discontinued 0315 (Given - Provider: Hermila Dumas RN)1115 [...] For pain when taking by mouth, Routine 2038 (Given - Provider: Hermila Dumas RN)0305 (Given - Provider: Hermila Dumas RN - Comment: sternal)0610 (Given - Provider: Hermila Dumas RN)0920 (Given - Provider: Michelle Chong RN)1313 (Given - Provider: Annabella Gonzales)1725 (Given - Provider: Michelle Chong RN)2038 (Given - Provider: Hermila Dumas RN)235 (Given - Provider: Hermila Dumas RN) 0300 (Given - Provider: Hermila Dumas RN)0605 (Given - Provider: Hermila Dumas RN)0916 (Given - Provider: Michelle Chong, DAVID)1623 (Given - Provider: Michelle Chong, RN)2000 (Given - Provider: Hermila Dumas RN)2352 [...] Routine documented in this encounter Care Teams Clothes Drier Repairer Relationship Specialty Start Date End Date Patric Al MD PCP - General 12/29/11 02/26/19 documented as of this encounter
--- OUTSIDE RECORDS SUMMARY | 2024-07-25 15:05 | XMS_ITS | Encounter Summary ---
Author Organization [facility] Address [facility] [place] [address] Care Team Providers Care Emergency Preparedness Manager Name Role Phone Guanako Gusman MD Primary Care Provider [phone] Encounter Details Date Type Department Care Team (Late st Contact Info) Description 01/04/2012 12:13 PM EST Anesthesia [place] [phone] Rodrigo Montgomery MD [facility] [place] [address] Anesthesia Record Procedure Summary Procedure Name Responsible [...] internal jugular vein; (placed by /Ruiz); 01/04/12; 2205 01/04/12 0000 by Akanksha Tracy RN 01/04/12 2205 by Grace Kuhn RN (RETIRED) Central Line Assessment/Interventio n - single lumen 01/04/12 0000 by Akanksha Tracy RN 01/05/12 1026 by Jeannine Pichardo RN Drain/Device Site 01/04/12; Right (7mm sabrian drain w bulb reservoir); leg; 01/05/12; 0200 [...] by Akanksha Tracy RN 01/05/12 1500 by Mateo, Tavia E, RN (RETIRED) Non-Surgical Airway Size: 8 mm; Removal Date: 01/04/12; Removal Time: 191301/04/12 0000 by Vangie Catsro, TARIK 01/04/121913 by Bhumi Goldberg RCP documented in [...] 01/06/2012 8:17 AM EST Patient: Lux Dixon Jr. Procedure(s) Performed: ENDOSCOPIC HARVEST VEIN(S) FOR CABG; @CABG, VENOUS & ARTERIAL GRAFT;SINGLE VEIN GRAFT Patient location: [facility] Surgical Floor Post-op pain: Adequate analgesia Post-op [...] ROS comment: +TOB Cardiovascular (+) hypertension, past [place], CAD, angina, WHITTAKER, (-) valvular problems/murmurs and [...] AM EDT Hospital Encounter [place] [address] Lisette Maldonado MD [facility] [place] [address] 08/01/2024 7:30 AM EDT - 08/01/2024 1:43 PM EDT Surgery [place] [address] Lisette Maldonado MD [facility] [place] [address] @BYPASS GRAFT, FEM-ANT TIBIAL, -POST TIBIAL, -PERONEAL, -DP W\ SYNTHETIC CONDUIT (WRVU 23.66) Scheduled Procedures Name Priority Associated Diagnoses Date/Ti me @BYPASS GRAFT, FEM-ANT TIBIA L, -POST TIBIAL, -PERONEAL, -DP W\ SYNTHETIC CONDUIT (WRVU 23.66) [facility] 08/01/2024 7:30 AM EDT documented as of this encounter Visit Diagnoses Not on filedocumented in this encounter Care Teams Emergency Preparedness Manager Relationship Specialty Start Date End Date Guanako Gusman MD PCP - General 12/29/11 02/26/19 documented as of this encounter
--- OUTSIDE RECORDS SUMMARY | 2024-07-25 15:05 | XMS_ITS | Encounter Summary ---
Author Organization [facility] [place] [address] Care Team Providers Care Director Of Instruction Name Role Phone uGanako Gusman MD Primary Care Provider Encounter Details Date Type Department Care Team (Late st Contact Info) Description 12/31/2011 2:00 PM EST Office Visit [place] [phone] Dai Iglesias, [place] Social History Tobacco Use Types Packs/Day Years [...] AM EDT Hospital Encounter [place] [phone] Lisette Maldonado MD [facility] [place] [address] 08/01/2024 7:30 AM EDT - 08/01/2024 1:43 PM EDT Surgery [place] [phone] Lisette Maldonado MD [facility] [place] [address] @BYPASS GRAFT, FEM-ANT TIBIAL, -POST TIBIAL, -PERONEAL, -DP W\ SYNTHETIC CONDUIT (WRVU 23.66) Scheduled Procedures Name Priority Associated Diagnoses Date/Ti me @BYPASS GRAFT, FEM-ANT TIBIA L, -POST TIBIAL, -PERONEAL, -DP W\ SYNTHETIC CONDUIT (WRVU 23.66) [facility] 08/01/2024 7:30 AM EDT documented as of this encounter Visit Diagnoses Not on filedocumented in this encounter Care Teams Director Of Instruction Relationship Specialty Start Date End Date Guanako Gusman MD PCP - General 12/29/11 02/26/19 documented as of this encounter
--- OUTSIDE RECORDS SUMMARY | 2024-07-25 15:06 | XMS_ITS | Encounter Summary ---
Author Organization [facility] Address [address] [place] [address] Care Team Providers Care Warehouse Administrative Assistant Name Role Phone Cameron Patel SAMPLE BUILDER Primary Care Provider [phone] Encounter Details Date Type Department Care Team (Late st Contact Info) Description 11/23/2005 Office Visit [facility] - [facility] [address] [place] [address] Jorge Urrutia MD [address] [place] [address] Social History Tobacco Use Types Packs/Day Years Used Date Smoking Tobacco: Never Assessed Sex and Gender Information Value Date Recorded Sex Assigned at Not on file Gender Identity Not on file Sexual Orientation Not on file documented as of this encounter Progress Notes * Jorge Urrutia MD - 01/07/20102024 EST [facility] - Physician Summary Registration Date/Time: 11/23/2005 [...] pain. No fever or nasal discharge. Treatment [employer]: Took Tylenol and ibuprofen. Symptoms did not [...] followup. Patientverbalized understanding. Written instructions provided in Tanzanian. The patient was discharged home. The patient left the Emergency Department ambulatory and via private vehicle. Patient driving. Patient has no belongings. Departure time: 15:23. --1523 Annette Collazo R.N. Locked/Released at 11/23/2005 15:23 by Annette Collazo R.N. documented in this encounter Plan of Treatment Not on file documented as of this encounter Visit Diagnoses Not on filedocumented in this encounter Care Teams Warehouse Administrative Assistant Relationship Specialty Start Date End Date Cameron Patel NP [address] [facility] [place] [address] PCP - General 10/22/09 documented as of this encounter
--- OUTSIDE RECORDS SUMMARY | 2024-07-25 15:06 | XMS_ITS | Encounter Summary ---
Author Organization [facility] Address [address] [place] [address] Care Team Providers Care Lead Ios Developer Name Role Phone Jorge Cameron Llanos PHLEBOTOMY SERVICES REPRESENTATIVE Primary Care Provider [phone] Encounter Details Date Type Department Care Team (Late st Contact Info) Description 12/03/2022 Lab Requisition [facility] Pathology & Laboratory Medicine - [address] [address] Outr Resulting Lab, Provider Social History Tobacco [...] 4th Generation Negative Negative 12/04/2022 9:22 EST [facility] Comment:If acute HIV-1 infec tion is suspected in a high risk patient, submit plasma specimen for HIV-1 RNA quantitation test. Blood VENOUS BLOOD / Unknown 12/02/2022 11:40 EST 12/03/2022 17:37 EST Narrative [facility] - 12/04/2022 9:22 EST Fourth Generation assay performed on the Siemens PeerSpaceaur XPT. Provider Outr Resulting Lab IMMUNOLOGY A ND SEROLOGY ORDERABLES [facility] [address] [place] [address] documented in this encounter Visit Diagnoses Not on filedocumented in this encounter Care Teams Lead Ios Developer Relationship Specialty Start Date End Date Cameron Patel, PHLEBOTOMY SERVICES REPRESENTATIVE [address] [facility] [place] [phone] PCP - General 10/22/09 documented as of this encounter
--- OUTSIDE RECORDS SUMMARY | 2024-07-25 15:06 | XMS_ITS | Encounter Summary ---
Author Organization [facility] Address [address] [place] [address] Care Team Providers Care Cytology Laboratory Manager Name Role Phone Unavailable Primary Care Provider Unavailabl e Encounter Details Date Type Department Care Team (Late st Contact Info) Description 11/23/2005 14:17 [facility] Hospital Encounter [address] [address] Jorge Urrutia MD [address] [place] [phone] Social History Tobacco Use Types Packs/Day Years [...]
--- OUTSIDE RECORDS SUMMARY | 2024-07-25 15:06 | XMS_ITS | Encounter Summary ---
Author Organization [facility] Address [address] [place] [address] Care Team Providers Care Commercial Singer Name Role Phone Cameron Patel PREFINISH OPERATOR Primary Care Provider [phone] Encounter Details Date Type Department Care Team (Late st Contact Info) Description 12/03/2022 Lab Requisition [facility] Pathology & Laboratory Medicine - [address] [address] Outr Resulting Lab, Provider Social History Tobacco [...] Negative Negative 12/04/2022 8:56 EST [facility] Blood VENOUS BLOOD / Unknown 12/02/2022 11:40 EST 12/03/2022 17:36 EST Provider Outr Resulting Lab CHEMISTRY & BLOOD GAS ORDERABLES [facility] [address] [place] [address] documented in this encounter Visit Diagnoses Not on filedocumented in this encounter Care Teams Commercial Singer Relationship Specialty Start Date End Date Cameron Patel, PREFINISH OPERATOR [address] [facility] [place] [id number] PCP - General 10/22/09 documented as of this encounter
--- OUTSIDE RECORDS SUMMARY | 2024-07-25 15:06 | XMS_ITS | Encounter Summary ---
Author Organization [facility] Address [facility] [place] [address] Care Team Providers Care Business Excellence Leader Name Role Phone Guanako Gusman MD Primary Care Provider [phone] Encounter Details Date Type Department Care Team (Late st Contact Info) Description 12/29/2011 Orders Only Cardiology at [address] [address] Sarthak Pollard MD [facility] CARDIOLOGY [place], [place] [id number] Social History Tobacco Use Types Packs/Day Years [...] AM EDT Hospital Encounter [place] [phone] Lisette Maldonado MD [facility] [place] [address] 08/01/2024 7:30 AM EDT - 08/01/2024 1:43 PM EDT [place] [address] Lisette Maldonado MD [facility] [place] [address] @BYPASS GRAFT, FEM-ANT TIBIAL, -POST TIBIAL, -PERONEAL, [...] EST) 12/29/2011 10:0 0 AM EST Narrative RAD - 04/18/2014 2:53 PM EDT This is a non-reportable exam. Procedure Note Claude Euceda - 04/18/2014 This is a non-reportable exam. Sarthak Pollard MD IMG FILM LIBRARY ORD ERABLES [facility] [address] [facility] [place] [address] documented in this encounter Visit Diagnoses Not on filedocumented in this encounter Care Teams Business Excellence Leader Relationship Specialty Start Date End Date Guanako Gusman MD PCP - General 12/29/11 02/26/19 documented as of this encounter
--- OUTSIDE RECORDS SUMMARY | 2024-07-25 15:06 | XMS_ITS | Clinical Summary ---
Author Organization [facility] Address [address] [place] [address] Care Team Providers Care Horticultural Therapist Name Role Phone JorgeCameron Viet DIRECTOR OF PROMOTIONS Primary Care Provider [phone] Medications Medication Sig Dispensed Refills Start Date [...] 3-dose series) 04/14 COVID-19 Vaccine (2022-24 season) 2024 Hepatitis C Screen Completed 12/02/2022 Procedures Procedure Name Priority Date/Time Associated Diagnosis Comments HEPATITIS C AB W REFLEX TO HCV RNA BY PCR Routine 12/02/2022 11:40 EST from Last 3 Months or Most Recently Relevant to Health Maintenance Results * HEPATITIS C AB W REFLEX TO HCV RNA BY PCR (12/02/2022 11:40 EST) Hep C Antibody Negative Negative 12/04/2022 8:56 EST [facility] Blood VENOUS BLOOD / Unknown 12/02/2022 11:40 EST 12/03/2022 17:36 EST Provider Outr Resulting Lab CHEMISTRY & BLOOD GAS ORDERABLES [facility] [address] [place] [address] from Last 3 Months or Most Recently Relevant to Health Maintenance Care Teams Horticultural Therapist Relationship Specialty Start Date End Date Cameron Patel, DIRECTOR OF PROMOTIONS [address] [place] [address] PCP - General 10/22/09
--- OUTSIDE RECORDS SUMMARY | 2024-07-25 15:06 | XMS_ITS | Encounter Summary ---
Author Organization [facility] Address [address] [place] [address] Care Team Providers Care Job Press Operator Name Role Phone Unavailable Primary Care Provider Unavailabl e Encounter Details Date Type Department Care Team (Latest Contact Info) Description 03/09/2008 10:00 EDT - 03/09/2008 11:59 EDT Hospital Encounter [facility] - Other [address] [place] [address] AttarianWil MD [address] [address] Discharge Disposition: Auto Discharge Social [...] QUIANA, GEOVANNA P ? Accession #: ? [id number] ? : ? 1975 (Age: 34) ??M [...] tissue with a ? pinpoint lumen. ??Two housing management representative cross sections are submitted as (A). ? Received in formalin labelled Quiana Geovanna and L vas def is a 0.8 cm in ? length by 0.2 cm in diameter firm, white, focally light maynard tubular segment of ?? tissue with a pinpoint lumen. ??Two housing management representative cross sections of the specimen are submitted as (B). (Mary Anne Cheng)/mpl ? End of Report ? [facility] 10/17/2009 10/18/2009 9:3 4 EST Guanako Gusman MD PATHOLOGY ORDERABLES [facility] [address] [place] [address] * ORBITS FOR FOREIGN BODY (03/09/2008 10:17 EDT) Anatomical Region Laterality Modality Other 03/09/2008 10:1 7 EDT Narrative 04/21/2009 11:08 EDT acc wet read please call [phone] with results metal mover needs orbits prior to mri ORBITS FOR FOREIGN BODY ??March 09, 2008 10:17:00 AM Signs and Symptoms: ??acc wet read please call [phone] with results metal mover needs orbits prior to mri. Two views of the orbits show no metallic foreign body. Procedure Note Song Hall MD - 04/21/2009 acc wet read please call [phone] with results metal mover needs orbits prior to mri ORBITS FOR FOREIGN BODY March 09, 2008 10:17:00 AM Signs and Symptoms: acc wet read please call [phone] with results metal mover needs orbits prior to mri. Two views of the orbits show no metallic foreign body. Wil Llanos Attarian MD [facility] ORDERABLES documented in this encounter Visit Diagnoses Not on filedocumented in this encounter
--- OUTSIDE RECORDS SUMMARY | 2024-07-25 15:06 | XMS_ITS | Encounter Summary ---
Author Organization [facility] Address [address] [place] [address] Care Team Providers Care Solar Sales Consultant Name Role Phone Cameron Patel CONSUMER LOAN PROCESSOR Primary Care Provider [phone] Encounter Details Date Type Department Care Team (Late st Contact Info) Description 05/27/2010 Abstract Used for ABSTRACTING Data [phone] Cameron Patel CONSUMER LOAN PROCESSOR [address] [facility] [place] [address] Social History Tobacco Use Types [...] mouth. added in this encounter Care Teams Solar Sales Consultant Relationship Specialty Start Date End Date Cameron Patel NP [address] [place] [address] PCP - General 10/22/09 documented as of this encounter
--- OUTSIDE RECORDS SUMMARY | 2024-07-25 15:06 | XMS_ITS | Encounter Summary ---
Author Organization [facility] [place] [address] Care Team Providers Care Broadcast Journalist Name Role Phone Patric Al MD Primary Care Provider [phone] Encounter Details Date Type Department Care Team (Late st Contact Info) Description 12/30/2011 9:30 AM EST - 12/30/2011 10:51 AM EST [place] [address] Sarthak Esposito MD [facility] [place] [address] CARDIAC CATHETERIZATION Social History Tobacco Use Types [...] 12:11 PM EST Geovanna Dixon Jr. 1975 [id number] New Diagnosis of Pre-Diabetes For discharge should [...] Some considerations about using metformin in Prediabetics: [place] Diabetes Prevention Program (DPP) as well as other minor studies and meta-analyses has convincingly demonstrated the efficacy of metformin in this patient group [pre-diabetics]. In addition, results of the 10 year DPP follow up have recently been published, demonstrating the moth exterminator safety and sustainability of metformin treatment [...] will be starting Cardiac rehab at [facility] [place], encouraged to increase physical activity as advised by cardiologists Weight Loss - A 7% weight loss could significantly improve his BG control Tobacco cessation - There is growing evidence that cigarette smokers are more prone than the general population to develop T2DM. Increase in insulin resistance with tobacco use. Darcie Lange APRN [facility] Endocrinology Diabetes Management [phone] * Patient Instructions* Ricky Graham PA - [...] Anne Tovar and/or the Cardiothoracic Surgery Physician Gas Tender Team may be reached at . Activity [...] Dr. Inna Tovar. You may use a [place] or treadmill but avoid any pulling [...] friends, go to a movie, go to hinduism, etc. Heavy activities: No hunting, skiing, jogging, [...] would be to continue to go [place]. He has quit this way before and [...] only 10% of those who quit [place] are able to be successful. The calculated savings once he quits smoking would be $54 a week, $234 a month, and $2803 a year. If he quits now his savings will be $28,030 in 10 years. The patient was provided with a [facility] Smoking Cessation packet and the contents have [...] given to patient. Discharge summary faxed to [facility] and receipt confirmed via phone. Patient discharged [...] outpatient basis Equipment needs: none ADEBAYO Cunningham GARRETT, EYELET ROW MARKER Pager: [phone] Physical Therapy Rehabilitation Department * Michelle Chong [...] services. Patient would like VNA services through [facility]. PHONE: [phone] FAX: [phone]. Referral made via E-discharge. Please see home care orders that must be included in discharge summary for VN services to start. Patient has glucometer and supplies at bedside. Pt. Denies any further needs from CRC. Pt. Gets scripts through [place] Medicaid with co-pay. He denies any concerns related to co-pay. * Darcie Lange, OIL PROGRAM COMPLIANCE SPECIALIST - 01/07/2012 9:57 AM EST Geovanna Dixon Jr. 1975 [id number] PATRIC AL MD Follow Up Diabetes Consult [...] Some considerations about using metformin in Prediabetics: [place] Diabetes Prevention Program (DPP) as well as other minor studies and meta-analyses has convincingly demonstrated the efficacy of metformin in this patient group [pre-diabetics]. In addition, results of the 10 year DPP follow up have recently been published, demonstrating the [place] safety and sustainability of metformin treatment benefits [...] will be starting Cardiac rehab at [facility] [place], encouraged to increase physical activity as advised [...] sensitive Novolog correction only Darcie Lange APRN [facility] Endocrinology Diabetes Management [phone] Pager [phone] This case was discussed with Dr. Christina Brody. 25 min time spent in patient care with 20 counseling, seeing patient, changing orders and discussion with the patient and the primary team as well as nursing. * Inna Tovar MD - 01/07/2012 9:39 AM EST Cardiac Surgery Progress Note: ID: [id number] 36/M POD #[address] Tovar [...] -- [phone] Recent Labs Basename 01/07/12 04101/06/12 0959 01/05/12 0200 01/04/12 2100 ??? NA [...] results found for this basename: phart, po2art, [id number] Assessment/Plan: Pathway. Neuro: ambulating on own per [...] home. (ie take out the trash or package pick up his child) Objective:Pt was seen today for [...] interventions: 30 minutes NAM TRINIDAD, PT Pager: [phone] Physical Therapy Rehabilitation Department * Vibha Martines [...] FOR CABG performed by INNA TOVAR at [facility] MAIN OR ??? Cabg, artery-vein, single 01/04/2012 @CABG, VENOUS & ARTERIAL GRAFT;SINGLE VEIN GRAFT performed by INNA TOVAR at [facility] MA[facility] OR Outpatient prescriptions marked as [...] yes Date: 12/29/11 Why then: Admission to [facility] What will be different this time: Just [...] in places where it is forbidden ex hinduism No Yes 0 3. Which cigarette would [...] would be to continue to go [place]. He has quit this way before and it lasted several years, so he has a history of being successful with this method. He also pointed out that his father and an uncle quit (for now over 10 years) by going [place]. I told him that it is difficult to recommend a quit method that has a 90% failure rate, but that said, it is his choice and that I would provide him with a toolkit of information so that he will be as knowledgeable as possible about nicotineaddiction and how to stay quit. And we do know that 10% of those who quit [place] are able to be successful. I calculated and shared with him that his savings once he quits smoking would be $54 a week, $234 amonth, and $2803 a year. If he quits now his savings will be $28,030 in 10 years. The patient has also been provided with a [facility] Smoking Cessation packet and the contents have been reviewed with him. The patient now has the Quit line number for [place] and has also been encouraged to use this if needed for support. In addition he was in agreement with a referral to the [place] Quitnetworkand I have FAXed a referral to [...] Nutrition Intervention: Hospital Day 9 Diet Order: [facility] Appetite: fair Food allergies: none Chewing/Swallowing difficulty: none Height: (cm) 180.3 Weight: (kg) 127.9 01/06/12 Wt hx: (kg) 124.5 12/29/11 BMI: 38.4 Education: [facility] dietary guidelines. Tips To Better Food Intake (Protein) dietary guidelines. Verbalized good understanding. Education material, with means of contact provided. Assessment: Patient verbalized good understanding of protein needs for healing as well as [facility] Heart Healthy guidelines. I have added high protein snacks between meals and CIB shakes to meal trays for extra protein/nutrition. Nutrition Plan: Diet: [facility] Recommend Daily Multi Vitamins. Added high protein snacks. CIB w/skim milk shakes three times per day. Encourage good po intake. Monitor weight. Support and encouragement provided. Nutrition services to follow weekly thru hospital course unless consulted in the interim. ACOSTA SMALL * Inna Tovar MD - 01/06/2012 1:50 PM EST Cardiac Surgery In Patient Progress Note Patient Name: Geovanna Dixon Jr. : [id number] MR#: [id number] Admitted: 12/29/2011 Hospital Day 8 days Problem [...] Subjective and 24 hr events: -Transferred to [facility] - No BM - Pain about a [...] Hamlin RN - 01/06/2012 10:11 AM EST [facility] CARDIAC REHABILITATION Geovanna Dixon Jr. was seen today regarding participation in outpatient Phase 2 Cardiac Rehabilitation at [facility] . A referral will be sent to this program. The patient was given contact information and should expect to be contacted by the program within 1-2 weeks after discharge from [facility]. * Kareen Mendoza, PT - 01/05/2012 3:59 [...] FOR CABG performed by INNA TOVAR at [facility] OR ??? Cabg, artery-vein, single 01/04/2012 @CABG, VENOUS & ARTERIAL GRAFT;SINGLE VEIN GRAFT performed by INNA TOVAR at [facility] OR Social History: Patient lives [...] minutes brief evaluation KAREEN MENDOZA, PT Pager: [phone] Physical Therapy Rehabilitation Department * Camille Angulo [...] A: medical plan still evolving. P: This development writer or colleague from the Office of [...] 0440 01/03/12 0615 01/02/12 0602 12/30/11 1625 2/21/12 2329 ??? NA 135 138 139 -- [...] Famotidine 20 mg BID FULL CODE Paola Delphine PGY 1 Pager [phone] Attending Addendum: I spoke with the patient and his family briefly this am. I agree with the principal findings. The impression and plan incorporate my input. No contraindication to surgery today. Sarthak Pollard MD [facility] pager [phone] * Sarthak Pollard MD - 01/03/2012 11:08 [...] risk of aggravating CAD. Sarthak Pollard MD [facility] pager [phone] * Bal John MD - 01/02/2012 3:10 [...] confirms his findings. Of note today: Mr. Dixon'cate throat feels better. He has been afebrile. [...] ??F) Oral 84 16 98 % - 01/01/12 2012 109/75 mmHg 36.6 ??C (97.9 ??F) - [...] Cristina Ambriz MD PGY1, Internal Medicine Pager [phone] 01/02/2012 Attending Addendum: I have interviewed and examined the patient. I agree with the principal findings. The impression and plan incorporate my input. As above, doing well. Will keep on heparin until surgery. No angina, HF, bleeding, or evidence of HIT. Sarthak Pollard MD [facility] pager [phone] * Inna Tovar MD - 01/01/2012 3:17 PM EST Please see Dr. Major's note from 12/31/11 for full details. Briefly, Mr. Dioxn developed unstable angina and ruled in for GA. Cath shows severe 3 vessel disease. Echo [...] 99/61 mmHg 36.6 ??C (97.9 ??F) - 18 97 % - 12/31/11 1115 113/73 [...] mg BID Paola Akers PGY 1 Pager [phone] Attending Addendum: I have interviewed and examined the patient. I agree with the principal findings. The impression and plan incorporate my input. He is disappointed that his surgery has been postponed until Wednesday butunderstands. He remains cp free. I've reviewed his angiograms and believe he needs to stay on heparin until surgery. All questions answered. Sarthak Pollard MD [facility] pager [phone] * Andi Rene MD - 12/31/2011 5:20 [...] mg BID Paola Akers PGY 1 Pager [phone] Cardiology Attending Progress Note Addendum: I have [...] would like to attend cardiac rehab at [facility] in [facility]. We will meet him [...] Call saucedo within reach, family at bedside. 4026) Patient off unit to XRAY with transpo & ADVERTISING EDITOR. documented in this encounter H&P Notes * [...] alleviate the pain. He eventually presented to [facility] on Wednesday wherehe had elevated [...] motorcycles and hunting He is NOT a mu-ism FHx: Heart disease on both sides of the family Father's side with multiple uncles with GA's, one at age of 40 Mother's side with uncle at age 50 from [place] Diabetes in mother ROS: Positive headache, nausea [...] 13.2 12/29/2011 PTT 31 12/30/2011 Troponins at [facility]: 0.05-->0.03 Imaging: Echo 12/30/11: 1. The left [...] loss were emphasized as they relate to moth exterminator patency of his grafts. He should receive smoking cessation counseling donya. One post op consideration will be vent wean and respiratory status given likely underlying CAMILLA and his known narcolepsy. Pre op orders written, heparin gtt to stop distribution lineman to OR. Pt seen and interviewed with [...] +active 25 pack year smoker comes to [facility] from [facility] for evaluation of intermittent CP since [...] history (both paternal grandparents passing away from [facility] and paternal aunts/uncles with histories of CAD). [...] FULL Provider: REMIGIO CERON MD Pager #: [phone] documented in this encounter Procedure Notes * Provider, Scanning - 01/10/2012 1:46 PM ESTAssociated Order(s): SCAN DOC: LINE PILOT * Provider, Scanning - 01/10/2012 1:46 PM [...] EST * Consult Note - Darcie Lange, OIL PROGRAM COMPLIANCE SPECIALIST - 01/06/2012 3:45 PM EST Geovanna Dixon Jr. 1975 [id number] Inpatient Endocrinology Glucose Management Consult Date of Consultation: 01/06/2012 Place of Consultation: [facility] Consult Requested by: Dr. Tovar, CT Surgery Reason for Consultation: Geovanna Dixon Jr. is a 36 y.o. male who was admitted on 12/29/2011 for the diagnosis of CAD now s/p CABG x2 with Dr. Tovar, POD #2. We are asked to see him to assist with diabetes management and to provide a [place] of [place] [facility] [place] diabetes plan. Diabetes History: Geovanna Dixon Jr. has NO history of diabetes, + for a family history of diabetes on mother's side and some on father's. Family history is also very significant for coronary artery disease. He stated that he has been tested in the past for diabetes but told that he does have diabetes, uncertain on A1C #. As per [facility] labs last A1C = 6.1% which suggests [...] Diabetes Care: Medications: None Monitoring: None Diet: [facility] Healthy No Known Allergies Past Medical History: [...] considerations about using metformin in Prediabetics: ?? [place] Diabetes Prevention Program (DPP) as well as other minor studies and meta-analyses hasconvincingly demonstrated the efficacy of metformin in this patient group [pre-diabetics]. In addition, results of the 10 year DPP follow up have recently been published, demonstrating the [place] [facility] [place] safety and sustainability of metformin treatment benefits [...] will be starting Cardiac rehab at [facility] [place], encouraged to increase physical activity as advised [...] start of metformin 500 mg QD Darcie M. Nazario OIL PROGRAM COMPLIANCE SPECIALIST [facility] Endocrinology Diabetes Management [phone] Pager [phone] This case was discussed with Dr. Christina [...] alleviate the pain. He eventually presented to [facility] on Wednesday where he had [...] Course: Geovanna Dixon JrFlorencio was admitted to [facility] on 12/29/2011 to the cardiologyservice for [...] Medications: Geovanna Dixon Jr. Home Medication Instructions CRAIG:[id number] Printed on:01/08/12 5482 Medication Information simvastatin (ZOCOR) 20 mg tablet [...] Anne Tovar and/or the Cardiothoracic Surgery Physician Gas Tender Team may be reached at . Activity [...] Dr. Inna Tovar. You may use a [place] or treadmill but avoid any pulling [...] friends, go to a movie, go to hinduism, etc. Heavy activities: No hunting, skiing, jogging, [...] would be to continue to go [place]. He has quit this way before and [...] only 10% of those who quit [place] are able to be successful. The calculated savings once he quits smoking would be $54 a week, $234 a month, and $2803 a year. If he quits now his savings will be $28,030 in 10 years. The patient was provided with a [facility] Smoking Cessation packet and the contents have been reviewed with him. The patient now has the Quit line number for [place] and has also been encouraged to use this ifneeded for support. In addition he was in agreement with a referral to the [place] Quitnetwork and a referral was faxed to [...] Some considerations about using metformin in Prediabetics: [place] Diabetes Prevention Program (DPP) as well as other minor studies and meta-analyses has convincingly demonstrated the efficacy of metformin in this patient group [pre-diabetics]. In addition, results of the 10 year DPP follow up have recently been published, demonstrating the [place] [facility] [place] safety and sustainability of metformin treatment benefits [...] will be starting Cardiac rehab at [facility] [place], encouraged to increase physical activity as advised by cardiologists Weight Loss - A 7% weight loss could significantly improve his BG control Tobacco cessation - There is growing evidence that cigarette smokers are more prone than the general population to develop T2DM. Increase in insulin resistance with tobacco use. Darcie Lange APRN [facility] Endocrinology Diabetes Management [phone] Medications: Take only those medications listed on [...] should resume a low fat, low cholesterol, [place] Heart Association Diet. Driving: No driving for [...] in outpatient Phase 2 Cardiac Rehabilitation at [facility] . A referral will be sent to this program. He was given contact information and shouldexpect to be contacted by the program within 1-2 weeks after discharge from [facility]. Arrangements for VNA/home care: PATIENT'S LOCATION: Geovanna Dixon Jr. [address] [place] [address] There is no home phone number on file. Telephone Information: In discussion with the attending physician, it is certified that this patient is under their care and that they, or a nurse practitioner, clinical nurse specialist or physician's customer support assistant who is working directly with them, [...] for services as follows: HOME HEALTH AGENCY: [facility]. PHONE: [phone] FAX: [phone] RN orders: Cardiopulmonary assessment, incisional assessment, assess [...] issues please call the Cardiac SurgeryOffice at [phone] FOR MEDICARE ONLY: (please delete this section if not Medicare) In discussion with the attending physician, it is certified that the clinical findings support thatthis patient is homebound (i.e. absences from home require considerable and taxing effort and are for medical reasons or latter-day services of infrequently or of short duration [...] nurse practitioner, clinical nurse specialist or physician's customer support assistant who is working directly with them, [...] effort and are for medical reasons or latter-day services of infrequently or of short duration when for other reasons) Please note that any additional orders needs or changes will need to be obtained from this patient's PCP: PATRIC AL MD [phone] All VNA agencies which cover the area of patient's residence have been reviewed, either verbally feli writing, and patient/family have chosen the indicated home health care agency for home services. Comments: Questions: Responses: Agency name and contact information [facility] Patient location post discharge home What services are requested Start date 01/10/2012 Responsible MD post discharge contact info PCP RN to remove chest tube sutures on or after 01/13/12. Signed: Ricky Graham PA-C [facility] Section of Cardiothoracic Surgery Date: 01/08/12 CC: MD CARLOS MENDEZ [facility] EMERGENCY DEPT [address] [place] [id number] * Op Note - Inna Tovar MD - 01/04/2012 3:55 PM EST [facility] Operative Note Patient Name: Geovanna Dixon Jr. : [id number] MR#: [id number] Case Date: 01/04/2012 Surgeon: Surgeon(s) and Role: [...] enlarged. There was diffuse disease in all northway vessels. The OFELIA and vein were of excellent quality. The lungs had early emphysematous changes. Procedure Details: The patient was brought to the operating room and given general anesthesia. A [place]Haley catheter, radial arterial line, and Mendez catheter [...] fter inspection for adequate hemostasis, two #28 [place] chest tubes were placed and brought out [...] Note Patient Name: Geovanna Dixon Jr. : [id number] MR#: [id number] Case Date: 01/04/2012 Surgeon: Surgeon(s) and Role: [...] Dixon Jr. at the request of Dr eRne for the evaluation of fever and leucocytosis Admission date: 12/29/2011 HPI: Geovanna Dixon Jr. is a 36 y.o. 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 No recent out door activities or [...] likely. (Leukocytosis may be r/t stress of GA.) Bacteremia as a complication of his cath, [...] AM EDT Hospital Encounter [place] [address] Lisette Maldonado MD [facility] [place] [address] 08/01/2024 7:30 AM EDT - 08/01/2024 1:43 PM EDT Surgery [place] [address] Lisette Maldonado MD [facility] [place] [address] @BYPASS GRAFT, FEM-ANT TIBIAL, -POST TIBIAL, -PERONEAL, [...] EST LAB SCAN 01/10/2012 1:46 PM EST LINE PILOT SCAN 01/10/2012 1:46 PM EST CARDIAC CATH [...] Routine 12/30/2011 4:14 PM EST CARDIAC ENZYMES ([facility]/CGP) STAT 12/30/2011 2:08 PM EST APTT STAT 12/30/2011 2:08 PM EST HIV SCREEN, 4TH GENERATION ([facility]/CGP/APD/NLH) Routine 12/30/2011 10:18 AM EST ECHOCARDIOGRAM TRANSTHORACIC Routine 12/30/2011 9:47 AM EST Chest pain CARDIAC CATHETERIZATION 12/30/19 9:38 AM EST CHEST PAIN RAPID DRUG SCREEN W/O CONFIRMATION, URINE Routine 12/30/2011 9:32 AM EST URINALYSIS WITH REFLEX CULTURE Routine 12/30/2011 9:32 AM EST URINE CULTURE Routine 12/30/2011 9:31 AM EST DIFFERENTIAL, AUTOMATED Routine 12/30/19 12 7:07 AM EST CBC (WITH DIFF) Routine 12/30/2011 7:07 AM EST HEMOGLOBIN A1C Routine 12/30/2011 7:07 AM EST CARDIAC ENZYMES ([facility]/CGP) STAT 12/30/2011 5:45 AM EST APTT STAT [...] (Bezet) 453 ms MUSE SYSTEM Calculated P [place] 41 degrees MUSE SYSTEM Calculated R [place] 25 degrees MUSE SYSTEM Calculated T [place] 74 degrees MUSE SYSTEM INTERPRETATION Sinus tachycardia [...] SCAN EXT O RDR/RSLT * SCAN DOC: LINE PILOT (01/10/2012 1:46 PM EST) Anatomical Region Laterality Modality Other Narrative 01/11/2012 8:32 AM EST Procedure Note Provider, Scanning - 01/10/2012 1:46 PM EST Scanning Provider MEDIA MGR SCAN EXT O RDR/RSLT * POCT GLUCOSE LAB USE ONLY (01/08/2012 12:00 PM EST) [facility] Glucose, POC 106 60 - 199 mg/dL [facility] Comment: Supplemental ranges: <110 mg/dL before meals <200 mg/dL all other times of the day Blood specimen (specimen) 01/08/2012 12:00 PM EST 01/08/2012 12:00 PM EST Andi Rene MD POINT OF CARE TEST O RDERABLES Performing Organization Address [facility] Phone Number [facility] * Potassium (01/08/2012 10:05 AM EST) Potassium 4.2 3.5 - 5.0 mmol/L [facility] Comment: Please note: ??Patients with WBC [...] Tovar MD CHEMISTRY ORDERABLES Performing Organization Address [facility] Phone Number [facility] * POCT GLUCOSE LAB USE ONLY (01/08/2012 7:21 AM EST) Glucose, POC 144 60 - 199 mg/dL [facility] Comment: Supplemental ranges: <110 mg/dL before meals <200 mg/dL all other times of the day Blood specimen (specimen) 01/08/2012 7:21 AM EST 01/08/2012 7:21 AM EST Andi Rene MD POINT OF CARE TEST O GILDA Performing Organization Address [facility] Phone Number [facility] * POCT GLUCOSE LAB USE ONLY (01/07/2012 8:43 PM EST) Glucose, POC 179 60 - 199 mg/dL [facility] Comment: Supplemental ranges: <110 mg/dL before meals <200 mg/dL all other times of the day Blood specimen (specimen) 01/07/2012 8:43 PM EST 01/07/2012 8:43 PM EST Andi Rene MD POINT OF CARE TEST O GILDA Performing Organization Address [facility] de Phone Number [facility] * POCT GLUCOSE LAB USE ONLY (01/07/2012 4:47 PM EST) Glucose, POC 128 60 - 199 mg/dL [facility] Comment: Supplemental ranges: <110 mg/dL before meals <200 mg/dL all other times of the day Blood specimen (specimen) 01/07/2012 4:47 PM EST 01/07/2012 4:47 PM EST Andi Rene MD POINT OF CARE TEST O RDERAHERNANDEZ Performing Organization Address [facility] de Phone Number [facility] * Potassium (01/07/2012 11:42 AM EST) Potassium 3.6 3.5 - 5.0 mmol/L [facility] Comment: Please note: ??Patients with WBC [...] Tovar MD CHEMISTRY ORDERABLES Performing Organization Address [facility] de Phone Number [facility] * POCT GLUCOSE LAB USE ONLY (01/07/2012 11:41 AM EST) Glucose, POC 114 60 - 199 mg/dL [facility] Comment: Supplemental ranges: <110 mg/dL before meals <200 mg/dL all other times of the day Blood specimen (specimen) 01/07/2012 11:41 AM EST 01/07/2012 11:41 AM EST Andi Rene MD POINT OF CARE TEST O RDERABLES Performing Organization Address [facility] de Phone Number [facility] * XR chest routine PA & [...] LAB USE ONLY (01/07/2012 8:00 AM EST) [facility] Glucose, POC 116 60 - 199 mg/dL [facility] Comment: Supplemental ranges: <110 mg/dL before meals <200 mg/dL all other times of the day Blood specimen (specimen) 01/07/2012 8:00 AM EST 01/07/2012 8:00 AM EST Andi Melchor Anju DE POINT OF CARE TEST O RDERABLES CERNER [...] MD HEMATOLOGY ORDERABLE S Performing Organization Address [facility] de Phone Number [facility] * Microalbumin, urine, random (01/06/2012 9:03 PM EST) Creatinine, Urine 136 mg/dL CE RNER MILLENNIUM Albumin, Urine 14.4 mg/L CERNE R MILLENNIUM Albumin / Creatinin Ratio, Urine 11 mcg/mg Cr [facility]ERN[facility] MILLENNIUM Comment: Reference Range* Random collection (mcg/mg creatinine) Normal ?<30 Microalbuminuria ?? 30 - 300 Clinical Albuminuria ?? >300 *[place] Diabetes Association. Diabetic Nephropathy. Diabetes Care 1997;(Suppl 1):S24-S27 Exercise within 24 hour, infection, fever, CHF, marked hyperglycemia, and marked hypertension may elevate urinary albumin excretion over baseline values. Urine specimen (specimen) 01/06/2012 9:03 PM EST 01/06/2012 10:28 PM EST Narrative Resulting Agency Comment Spec In Lab Inna Tovar MD URINE ORDERABLES Performing Organization Address [facility] de Phone Number [facility] * POCT GLUCOSE LAB USE ONLY (01/06/2012 7:46 PM EST) Glucose, POC 127 60 - 199 mg/dL [facility] Comment: Supplemental ranges: <110 mg/dL before meals <200 mg/dL all other times of the day Blood specimen (specimen) 01/06/2012 7:46 PM EST 01/06/2012 7:46 PM EST Andi Rene MD POINT OF CARE TEST O RDERABLES Performing Organization Address [facility] Co de Phone Number [facility] * POCT GLUCOSE LAB USE ONLY (01/06/2012 4:24 PM EST) Glucose, POC 131 60 - 199 mg/dL [facility] Comment: Supplemental ranges: <110 mg/dL before meals <200 mg/dL all other times of the day Blood specimen (specimen) 01/06/2012 4:24 PM EST 01/06/2012 4:24 PM EST Andi Rene MD POINT OF CARE TEST O RDERAHERNANDEZ Performing Organization Address [facility] de Phone Number [facility] * POCT GLUCOSE LAB USE ONLY (01/06/2012 12:06 PM EST) Glucose, POC 160 60 - 199 mg/dL [facility] Comment: Supplemental ranges: <110 mg/dL before meals <200 mg/dL all other times of the day Blood specimen (specimen) 01/06/2012 12:06 PM EST 01/06/2012 12:06 PM EST Andi Rene MD POINT OF CARE TEST O GILDA Performing Organization Address [facility] Phone Number [facility] * Potassium (01/06/2012 9:59 AM EST) Potassium 4.0 3.5 - 5.0 mmol/L [facility] Comment: Please note: ??Patients with WBC [...] Tovar MD CHEMISTRY ORDERABLES Performing Organization Address [facility] de Phone Number [facility] * POCT GLUCOSE LAB USE ONLY (01/06/2012 6:53 AM EST) Glucose, POC 168 60 - 199 mg/dL [facility] Comment: Supplemental ranges: <110 mg/dL before meals <200 mg/dL all other times of the day Blood specimen (specimen) 01/06/2012 6:53 AM EST 01/06/2012 6:53 AM EST Andi Rene MD POINT OF CARE TEST O RDERABLES Performing Organization Address [facility] de Phone Number [facility] * POCT GLUCOSE LAB USE ONLY (01/06/2012 5:03 AM EST) Glucose, POC 147 60 - 199 mg/dL [facility] Comment: Supplemental ranges: <110 mg/dL before meals <200 mg/dL all other times of the day Blood specimen (specimen) 01/06/2012 5:03 AM EST 01/06/2012 5:03 AM EST Andi Rene MD POINT OF CARE TEST O RDERAHERNANDEZ Performing Organization Address [facility] Phone Number [facility] * POCT GLUCOSE LAB USE ONLY (01/06/2012 3:16 AM EST) Glucose, POC 126 60 - 199 mg/dL [facility] Comment: Supplemental ranges: <110 mg/dL before meals <200 mg/dL all other times of the day Blood specimen (specimen) 01/06/2012 3:16 AM EST 01/06/2012 3:16 AM EST Andi Rene MD POINT OF CARE TEST O RDERAHERNANDEZ Performing Organization Address [facility] de Phone Number [facility] * POCT GLUCOSE LAB USE ONLY (01/06/2012 1:12 AM EST) Glucose, POC 135 60 - 199 mg/dL [facility] Comment: Supplemental ranges: <110 mg/dL before meals <200 mg/dL all other times of the day Blood specimen (specimen) 01/06/2012 1:12 AM EST 01/06/2012 1:12 AM EST Andi Rene MD POINT OF CARE TEST O RDERABLES Performing Organization Address [facility] de Phone Number [facility] * POCT GLUCOSE LAB USE ONLY (01/05/2012 11:52 PM EST) Glucose, POC 133 60 - 199 mg/dL [facility] Comment: Supplemental ranges: <110 mg/dL before meals <200 mg/dL all other times of the day Blood specimen (specimen) 01/05/2012 11:52 PM EST 01/05/2012 11:52 PM EST Andi Rene MD POINT OF CARE TEST O GILDA Performing Organization Address [facility] Co de Phone Number [facility] * POCT GLUCOSE LAB USE ONLY (01/05/2012 10:54 PM EST) Glucose, POC 130 60 - 199 mg/dL [facility] Comment: Supplemental ranges: <110 mg/dL before meals <200 mg/dL all other times of the day Blood specimen (specimen) 01/05/2012 10:54 PM EST 01/05/2012 10:54 PM EST Andi Rene MD POINT OF CARE TEST Stephanie VO Performing Organization Address [facility] Co de Phone Number [facility] * POCT GLUCOSE LAB USE ONLY (01/05/2012 9:51 PM EST) Glucose, POC 132 60 - 199 mg/dL [facility] Comment: Supplemental ranges: <110 mg/dL before meals <200 mg/dL all other times of the day Blood specimen (specimen) 01/05/2012 9:51 PM EST 01/05/2012 9:51 PM EST Andi Rene MD POINT OF CARE TEST O GILDA Performing Organization Address [facility] de Phone Number [facility] * POCT GLUCOSE LAB USE ONLY (01/05/2012 8:50 PM EST) Glucose, POC 126 60 - 199 mg/dL [facility] Comment: Supplemental ranges: <110 mg/dL before meals <200 mg/dL all other times of the day Blood specimen (specimen) 01/05/2012 8:50 PM EST 01/05/2012 8:50 PM EST Andi Rene MD POINT OF CARE TEST O RDERAHERNANDEZ Performing Organization Address [facility] Phone Number [facility] * POCT GLUCOSE LAB USE ONLY (01/05/2012 8:07 PM EST) Glucose, POC 126 60 - 199 mg/dL [facility] Comment: Supplemental ranges: <110 mg/dL before meals <200 mg/dL all other times of the day Blood specimen (specimen) 01/05/2012 8:07 PM EST 01/05/2012 8:07 PM EST Andi Rene MD POINT OF CARE TEST O RDERAHERNANDEZ Performing Organization Address [facility] Phone Number [facility] * POCT GLUCOSE LAB USE ONLY (01/05/2012 6:57 PM EST) Glucose, POC 137 60 - 199 mg/dL [facility] Comment: Supplemental ranges: <110 mg/dL before meals <200 mg/dL all other times of the day Blood specimen (specimen) 01/05/2012 6:57 PM EST 01/05/2012 6:57 PM EST Andi Rene MD POINT OF CARE TEST O RDERAHERNANDEZ Performing Organization Address [facility] Phone Number [facility] * POCT GLUCOSE LAB USE ONLY (01/05/2012 4:59 PM EST) Glucose, POC 147 60 - 199 mg/dL [facility] MILLENNIUM Comment: Supplemental ranges: <110 mg/dL before meals <200 mg/dL all other times of the day Blood specimen (specimen) 01/05/2012 4:59 PM EST 01/05/2012 4:59 PM EST Andi Rene MD POINT OF CARE TEST O RDERAHERNANDEZ Performing Organization Address [facility] Co de Phone Number [facility] * POCT GLUCOSE LAB USE ONLY (01/05/2012 1:05 PM EST) Glucose, POC 154 60 - 199 mg/dL [facility] Comment: Supplemental ranges: <110 mg/dL before meals <200 mg/dL all other times of the day Blood specimen (specimen) 01/05/2012 1:05 PM EST 01/05/2012 1:05 PM EST Andi Rene MD POINT OF CARE TEST O GILDA Performing Organization Address [facility] de Phone Number [facility] * POCT GLUCOSE LAB USE ONLY (01/05/2012 12:42 PM EST) Glucose, POC 148 60 - 199 mg/dL [facility] Comment: Supplemental ranges: <110 mg/dL before meals <200 mg/dL all other times of the day Blood specimen (specimen) 01/05/2012 12:42 PM EST 01/05/2012 12:42 PM EST Andi Rene MD POINT OF CARE TEST O GILDA Performing Organization Address [facility] de Phone Number [facility] * POCT GLUCOSE LAB USE ONLY (01/05/2012 9:54 AM EST) Glucose, POC 145 60 - 199 mg/dL [facility] Comment: Supplemental ranges: <110 mg/dL before meals <200 mg/dL all other times of the day Blood specimen (specimen) 01/05/2012 9:54 AM EST 01/05/2012 9:54 AM EST Andi Rene MD POINT OF CARE TEST O RDERAHERNANDEZ Performing Organization Address [facility] Co de Phone Number [facility] * POCT GLUCOSE LAB USE ONLY (01/05/2012 8:00 AM EST) Glucose, POC 168 60 - 199 mg/dL [facility] Comment: Supplemental ranges: <110 mg/dL before meals <200 mg/dL all other times of the day Blood specimen (specimen) 01/05/2012 8:00 AM EST 01/05/2012 8:00 AM EST Andi Rene MD POINT OF CARE TEST O GILDA Performing Organization Address [facility] Co de Phone Number [facility] * POCT GLUCOSE LAB USE ONLY (01/05/2012 5:58 AM EST) Glucose, POC 164 60 - 199 mg/dL [facility] Comment: Supplemental ranges: <110 mg/dL before meals <200 mg/dL all other times of the day Blood specimen (specimen) 01/05/2012 5:58 AM EST 01/05/2012 5:58 AM EST Andi Rene MD POINT OF CARE TEST O GILDA Performing Organization Address [facility] Co de Phone Number [facility] * POCT GLUCOSE LAB USE ONLY (01/05/2012 4:12 AM EST) Glucose, POC 148 60 - 199 mg/dL [facility] Comment: Supplemental ranges: <110 mg/dL before meals <200 mg/dL all other times of the day Blood specimen (specimen) 01/05/2012 4:12 AM EST 01/05/2012 4:12 AM EST Andi Rene MD POINT OF CARE TEST O GILDA Performing Organization Address [facility] Co de Phone Number [facility] * POCT GLUCOSE LAB USE ONLY (01/05/2012 2:05 AM EST) Glucose, POC 148 60 - 199 mg/dL [facility] Comment: Supplemental ranges: <110 mg/dL before meals <200 mg/dL all other times of the day Blood specimen (specimen) 01/05/2012 2:05 AM EST 01/05/2012 2:05 AM EST Andi Rene MD POINT OF CARE TEST O RDERABLES Performing Organization Address City/State/[facility] Co de Phone Number CERNER MILLENNIUM [...] MD HEMATOLOGY ORDERABLE S Performing Organization Address City/State/[facility] de Phone Number ARIAN NELSON * (ABNORMAL) Cardiac Enzymes (01/05/2012 2:00 AM EST) Troponin-T 0.39(H) <=0.03 ng/mL [facility] Comment: 0.03 ng/mL: Represents the 99th percentile upper reference limit for normals. >0.03 ng/mL: Elevated cardiac troponin T level indicative of myocardial damage. Diagnosis of acute, evolving or recent GA requires a typical rise and gradual fall [...] consensus document of the Joint Society of Cardiology/[place] College of Cardiology Committee for the redefinition of myocardial infarction. Journal of the [place] College of Cardiology 2000; 36: 959-969] Creatine Kinase 436(H) 0 - 200 unit/L [facility] [employer] Blood specimen (specimen) 01/05/2012 2:00 AM EST 01/05/2012 2:11 AM EST Narrative Resulting Agency Comment Spec In Lab Sarthak Pollard MD CHEMISTRY ORDERABLES Performing Organization Address [facility] de Phone Number [facility] NEL[facility] * Potassium (01/05/2012 2:00 AM EST) Potassium 4.4 3.5 - 5.0 mmol/L [facility] [employer] Comment: Please note: ??Patients with WBC >100,000 [...] Pollard MD CHEMISTRY ORDERABLES Performing Organization Address [facility] Co de Phone Number [facility] * (ABNORMAL) Glucose, fasting (01/05/2012 2:00 AM EST) Glucose Fasting 148(H) 65 - 99 mg/dL [facility] Comment: ?Fasting* Glucose Interpretive Criteria Normal [...] of Diabetes Mellitus, Position Statement from the [place] Diabetes Association. ??Diabetes Care, Volume 33, Supplement 1, Nov 2009 Blood specimen (specimen) 01/05/2012 2:00 AM EST 01/05/2012 2:11 AM EST Narrative Resulting Agency Comment Spec In Lab Sarthak Pollard MD CHEMISTRY ORDERABLES Performing Organization Address [facility] de Phone Number [facility] * Creatinine, serum (01/05/2012 2:00 AM EST) Creatinine 0.86 0.80 - 1.50 mg/dL [facility] Est Glomerular Filtration Rate >60 >=60 [facility] Comment: The National Kidney Disease Education [...] Pollard MD CHEMISTRY ORDERABLES Performing Organization Address [facility] de Phone Number ARIAN CAENNIUM * BUN (01/05/2012 2:00 AM EST) Blood Urea Nitrogen 10 10 - 20 mg/dL CERNER MILLENNIUM Blood specimen (specimen) 01/05/2012 2:00 AM EST 01/05/2012 2:11 AM EST Narrative Resulting Agency Comment Spec In Lab Sarthak Pollard MD CHEMISTRY ORDERABLES Performing Organization Address [facility] Co de Phone Number CERBRIAN CAENNIUM * (ABNORMAL) CBC (with Diff) (01/05/2012 2:00 AM EST) White Blood Cell 24.6(H) 4.0 - 10.0 x10(3)/mc L CERNER MILLENNIUM Red Blood Cell 4.27(L) 4.63 - 6.08 x10(6)/mc L CERN[facility] MILLENNIUM Hemoglobin 12.8(L) 13.7 - 17.5 gm/dL CERNER MILLENNIUM Hematocrit 37.9(L) 40.0 - 51.0 % [facility] Mean Cell Volume 88.8 79.0 - 92.0 fL [facility] Mean Cell Hemoglobin 30.0 25.6 - 32.2 pg [facility] Mean Cell Hemoglobin Concentration 33.8 32.0 - 36.5 gm/dL [facility] MILLENNIUM Platelet 294 145 - 370 x10(3)/mc L [facility] MILLEN[facility]UM RDW Standard Deviation 42.2 35.0 - 46.0 fL [facility] MILL[facility]UM RDW coefficient of variation 13.0 10.9 - 14.4 % [facility] MILLENNIUM Mean Platelet Volume 9.7 9.0 - 12.0 fL [facility] Blood specimen (specimen) 01/05/2012 2:00 AM EST 01/05/2012 2:11 AM EST Narrative Resulting Agency Comment Spec In Lab Sarthak Pollard MD HEMATOLOGY ORDERABLE S Performing Organization Address [facility] Co de Phone Number [facility] * POCT GLUCOSE LAB USE ONLY (01/04/2012 11:58 PM EST) Glucose, POC 136 60 - 199 mg/dL [facility] Comment: Supplemental ranges: <110 mg/dL before meals <200 mg/dL all other times of the day Blood specimen (specimen) 01/04/2012 11:58 PM EST 01/04/2012 11:58 PM EST Andi Rene MD POINT OF CARE TEST O RDERABLES Performing Organization Address [facility] Co de Phone Number [facility] * POCT GLUCOSE LAB USE ONLY (01/04/2012 9:00 PM EST) Glucose, POC 143 60 - 199 mg/dL [facility] Comment: Supplemental ranges: <110 mg/dL before meals <200 mg/dL all other times of the day Blood specimen (specimen) 01/04/2012 9:00 PM EST 01/04/2012 9:00 PM EST Andi Rene MD POINT OF CARE TEST O RDERABLES Performing Organization Address [facility] de Phone Number [facility] * GLUCOSE, RANDOM (01/04/2012 9:00 PM EST) Pathologist [facility] Glucose 128 60 - 199 mg/dL [facility] Comment:Diabetes: >=200 mg/d L plus symptoms Blood specimen (specimen) 01/04/2012 9:00 PM EST 01/04/2012 9:08 PM EST Narrative Resulting Agency Comment Spec In Lab Sarthak Pollard MD CHEMISTRY ORDERABLES Performing Organization Address [facility] Phone Number [facility] * (ABNORMAL) Hemoglobin (01/04/2012 9:00 PM EST) Pathologist [facility] Hemoglobin 13.6(L) 13.7 - 17.5 gm/dL [facility] Blood specimen (specimen) 01/04/2012 9:00 PM EST 01/04/2012 9:08 PM EST Narrative Resulting Agency Comment Spec In Lab Sarthak Pollard MD HEMATOLOGY ORDERABLE S Performing Organization Address [facility] Phone Number [facility] * Potassium (01/04/2012 9:00 PM EST) [facility] Potassium 4.7 3.5 - 5.0 mmol/L [facility] Comment: Please note: ??Patients with WBC [...] Pollard MD CHEMISTRY ORDERABLES Performing Organization Address [facility] Phone Number [facility] * (ABNORMAL) BLOOD GAS 2 ARTERIAL (01/04/2012 6:47 PM EST) pH, Arterial 7.33(L) CERNER MILLENNIUM PCO2, Arterial 47(H) mmHg CERNE R MILLENNIUM PO2, Arterial 109(H) mmHg CERNER MILLENNIUM Bicarbonate, Arterial 24.1 mmol/L CERN[facility] MILLENNIUM Base Excess, Arterial -1.9 mmol/L [facility]ERN[facility] MILLENNIUM Hgb Blood Gas 14.1 gm/dL [facility]ERN[facility] MILLENNIUM Comment: Total Hemoglobin (in gm/dL) ?Based on [facility] Hematology ranges: ?Age ?Reference Range Less than [...] Comment: Total Hemoglobin (in gm/dL) ?Based on [facility] Hematology ranges: ?Age ?Reference Range Less than [...] GAS 2 ARTERIAL (01/04/2012 4:30 PM EST) [facility] pH, Arterial 7.35(L) CERNER MILLENNIUM PCO2, Arterial 46(H) mmHg CERNE R MILLENNIUM PO2, Arterial 223(H) mmHg CERNER MILLENNIUM Bicarbonate, Arterial 25.1 mmol/L CERNER MILLENNIUM Base Excess, Arterial -0.4 mmol/L CERNER MILLENNIUM Hgb Blood Gas Not Perf 13.7 - 17.5 gm/dL [facility] MILLENNIUM Comment: Total Hemoglobin (in gm/dL) ?Based on [facility] Hematology ranges: ?Age ?Reference Range Less than [...] POINT OF CARE TEST O RDERABLES CERNER ROBYENNIUM * EKG 12 Lead (01/04/2012 4:26 PM EST) Ventricular rate 72 BPM MUSE SYSTEM Atrial Rate 72 BPM MUSE SYSTEM P-R Interval 174 ms MUSE SYSTEM QRS Duration 96 ms MUSE SYSTEM Q-T Interval 416 ms MUSE SYSTEM QTC Calculated (Bezet) 455 ms MUSE SYSTEM Calculated P [place] 48 degrees MUSE SYSTEM Calculated R [place] 23 degrees MUSE SYSTEM Calculated T [place] 71 degrees MUSE SYSTEM INTERPRETATION Normal sinus rhythm Normal ECG When compared with ECG of 30-DEC-2011 17:24, Vent. rate has decreased BY ??35 BPM Minimal criteria for Inferior infarct are no longer Present Nonspecific T wave abnormality, improved in Anterolateral leads Confirmed by fellow MD Steve, Luca ([id number]) on 01/05/2012 10:22:57 AM Confirmed by MD [...] l) mmHg [facility] MILLENNIUM Comment: Noted by optical instrument assembly supervisor. MTF PO2, Arterial 145(H) mmHg CERNER MILLENNIUM Bicarbonate, Arterial 25.5 mmol/L CERNER MILLENNIUM Base Excess, Arterial -0.7 mmol/L CERNER MILLENNIUM Hgb Blood Gas 11.1(L) gm/dL [facility] MILLENNIUM Comment: Total Hemoglobin (in gm/dL) ?Based on [facility] Hematology ranges: ?Age ?Reference Range Less than [...] PM EST 01/04/2012 3:28 PM EST Andi S Rene MD POINT OF CARE TEST O RDERABLES Performing Organization Address [facility] Co de Phone Number [facility] * THROMBIN TIME (01/04/2012 3:28 PM EST) Thrombin Time 17 15 - [address] [facility] Blood specimen (specimen) 01/04/2012 3:28 PM EST 01/04/2012 3:28 PM EST Narrative Resulting Agency Comment Spec In Lab Sarthak Pollard MD HEMATOLOGY ORDERABLE S Performing Organization Address [facility] de Phone Number [facility] * FIBRINOGEN (01/04/2012 3:28 PM EST) Fibrinogen 364 200 - 470 mg/dL [facility] Comment:Called by: LEILANI, Read back by: AKANKSHA SAMPSON, Date/Time:01/04/12 15:45. Blood specimen (specimen) 01/04/2012 3:28 PM EST 01/04/2012 3:28 PM EST Narrative Resulting Agency Comment Spec In Lab Sarthak Pollard MD HEMATOLOGY ORDERABLE S Performing Organization Address [facility] Phone Number [facility] * APTT (01/04/2012 3:28 PM EST) Partial Thromboplastin Time 30 25 - [address] [facility] Comment: Recommended therapeutic PTT range for full dose unfractionated heparin is 80-114 seconds. Blood specimen (specimen) 01/04/2012 3:28 PM EST 01/04/2012 3:28 PM EST Narrative Resulting Agency Comment Spec In Lab Sarthak Pollard MD HEMATOLOGY ORDERABLE S Performing Organization Address [facility] Phone Number [facility] * (ABNORMAL) PROTHROMBIN TIME (01/04/2012 3:28 PM EST) Prothrombin Time 17.8(H) 11.9 - 14.[address] [facility] Comment: [facility] Transfusion Committee Guidelines: INR less than [...] MD HEMATOLOGY ORDERABLE S Performing Organization Address City/[facility] Co de Phone Number CERNER MILLENNIUM * (ABNORMAL) CBC (WITH DIFF) (01/04/2012 [...] HEMATOLOGY ORDERABLE S CERBRIAN MILLENNIUM * (ABNORMAL) BLOOD GAS 2 ARTERIAL (01/04/2012 2:28 PM EST) [facility] pH, Arterial 7.31(L) CERNER MILLENNIUM PCO2, Arterial 53(Critica l) mmHg CERNER MILLENNIUM Comment: Noted by optical instrument assembly supervisor. MTF PO2, Arterial 296(H) mmHg CERNER MILLENNIUM Bicarbonate, Arterial 26.3(H) mmol/L CERNER MILLENNIUM Base Excess, Arterial 0.1 mmol/L CERNER MILLENNIUM Hgb Blood Gas 10.2(L) gm/dL CERNER MILLENNIUM Comment: Total Hemoglobin (in gm/dL) ?Based on [facility] Hematology ranges: ?Age ?Reference Range Less than [...] CARE TEST O RDERABLES Performing Organization Address [facility] Co de Phone Number [facility] * FIBRINOGEN (01/04/2012 2:25 PM EST) Fibrinogen 356 200 - 470 mg/dL [facility] Comment:Called by: [facility], Read back by: AKANKSHA SAMPSON, Date/Time:01/04/12 14:49. Blood specimen (specimen) 01/04/2012 2:25 PM EST 01/04/2012 2:32 PM EST Narrative Resulting Agency Comment Spec In Lab Sarthak Pollard MD HEMATOLOGY ORDERABLE S Performing Organization Address [facility] Co de Phone Number [facility] * PLATELET COUNT (01/04/2012 2:25 PM EST) Platelet 281 145 - 370 x10(3)/mcL [facility]ERNER MILLENNIUM Blood specimen (specimen) 01/04/2012 2:25 PM EST 01/04/2012 2:32 PM EST Narrative Resulting Agency Comment Spec In Lab Sarthak Pollard MD HEMATOLOGY ORDERABLE S [facility] MILLENNI[facility] * (ABNORMAL) BLOOD GAS 2 ARTERIAL (01/04/2012 12:59 PM EST) [facility] Signature pH, Arterial 7.36 CERNER MILLENNIUM PCO2, Arterial 48(H) mmHg CERNE R MILLENNIUM PO2, Arterial 197(H) mmHg [facility]ERNER [facility]ILL[facility]NI[facility] Bicarbonate, Arterial 26.7(H) mmol/L [facility]ILL[facility]NI[facility] Base Excess, Arterial 1.3 mmol/L [facility] Hgb Blood Gas 13.9 gm/dL [facility] MILLENNI[facility] Comment: Total Hemoglobin (in gm/dL) ?Based on [facility] Hematology ranges: ?Age ?Reference Range Less than [...] CARE TEST O GILDA Performing Organization Address City/[facility] Co de Phone Number ARIAN CERDAIUM * Prepare Coag Factors (Non-Hemophilia) (01/04/2012 12:05 PM EST) Dispensed? Yes ARIAN CERDAIUM Blood specimen (specimen) 01/04/2012 12:05 PM EST 01/04/2012 12:01 PM EST Narrative Resulting Agency Comment Spec In Lab Inna Tovar MD BLOOD BANK PRODUCT O GILDA Performing Organization Address City/[facility] Co de Phone Number ARIAN CERDAIUM * Prepare RBC (01/04/2012 12:05 PM EST) Dispensed? Yes ARIAN CERDAIUM Blood specimen (specimen) 01/04/2012 12:05 PM EST 01/04/2012 12:01 PM EST Narrative Resulting Agency Comment Spec In Lab Inna Tovar MD BLOOD BANK PRODUCT O RDERAHERNANDEZ ARIAN CERDAIUM * (ABNORMAL) DIFFERENTIAL, MANUAL (01/04/2012 [...] 0.0 - 0.2 x10(3)/mc L CERNER MILLENNIUM [place] Absolute Manual 0.3(H) 0.0 - 0.0 x10(3)/mc [...] BMP w/fasting Glucose (01/04/2012 4:40 AM EST) [facility] Glucose Fasting 113(H) 65 - 99 [...] of Diabetes Mellitus, Position Statement from the [place] [employer]. ??Diabetes Care, Volume 33, Supplement [...] In Lab Andi Rene MD CHEMISTRY ORDERABLES [facility] ROBYENNIUM * (ABNORMAL) CBC (with Diff) (01/04/2012 [...] MD HEMATOLOGY ORDERABLE S Performing Organization Address [facility] de Phone Number [facility] * (ABNORMAL) APTT (01/04/2012 4:40 AM EST) Partial Thromboplastin Time 103(H) 25 - 35 sec [facility] Comment: Recommended therapeutic PTT range for full dose unfractionated heparin is 80-114 seconds. Blood specimen (specimen) 01/04/2012 4:40 AM EST 01/04/2012 4:52 AM EST Narrative Resulting Agency Comment Spec In Lab Sarthak Pollard MD HEMATOLOGY ORDERABLE S Performing Organization Address [facility] de Phone Number [facility] * (ABNORMAL) APTT (01/03/2012 7:38 PM EST) Partial Thromboplastin Time 98(H) 25 - [address] [facility] Comment: Recommended therapeutic PTT range for full dose unfractionated heparin is 80-114 seconds. Blood specimen (specimen) 01/03/2012 7:38 PM EST 01/03/2012 7:53 PM EST Narrative Resulting Agency Comment Spec In Lab Sarthak Pollard MD HEMATOLOGY ORDERABLE S Performing Organization Address [facility] de Phone Number [facility] * (ABNORMAL) APTT (01/03/2012 12:17 PM EST) Partial Thromboplastin Time 101(H) 25 - 35 sec [facility] Comment: Recommended therapeutic PTT range for [...] 6:15 AM EST) Ab Screen Interp Negative [facility] Expires at [id number] on: [id number] [facility] Blood specimen (specimen) 01/03/2012 6:15 AM EST 01/03/2012 6:35 AM EST Narrative Resulting Agency Comment Spec In Lab Sarthak Pollard MD BLOOD BANK LAB ORDER RANDELL Performing Organization Address [facility] Co de Phone Number [facility] * ABO/RH TYPING (01/03/2012 6:15 AM EST) ABORH Type A Pos [facility] Blood specimen (specimen) 01/03/2012 6:15 AM EST 01/03/2012 6:35 AM EST Narrative Resulting Agency Comment Spec In Lab Sarthak Pollard MD BLOOD BANK LAB ORDER RANDELL Performing Organization Address [facility] de Phone Number [facility] * (ABNORMAL) APTT (01/03/2012 6:15 AM EST) Partial Thromboplastin Time 96(H) 25 - [address] [facility] Comment: Recommended therapeutic PTT range for full dose unfractionated heparin is 80-114 seconds. Blood specimen (specimen) 01/03/2012 6:15 AM EST 01/03/2012 6:23 AM EST Narrative Resulting Agency Comment Spec In Lab Sarthak Pollard MD HEMATOLOGY ORDERABLE S Performing Organization Address [facility] de Phone Number [facility] * (ABNORMAL) BMP w/fasting Glucose (01/03/2012 6:15 AM EST) Glucose Fasting 116(H) 65 - 99 mg/dL [facility] Comment: ?Fasting* Glucose Interpretive Criteria Normal [...] of Diabetes Mellitus, Position Statement from the [place] [employer]. ??Diabetes Care, Volume 33, Supplement [...] Rene MD CHEMISTRY ORDERABLES Performing Organization Address City/State/[facility] Co de Phone Number CERNER MILLENNIUM [...] MD HEMATOLOGY ORDERABLE S Performing Organization Address City/[facility]/ZIP Co de Phone Number CERBRIAN CAENNIUM * (ABNORMAL) APTT (01/02/2012 11:21 PM EST) Partial Thromboplastin Time 69(H) 25 - 35 sec CERNER MILLENNIUM Comment: Recommended therapeutic PTT range for full dose unfractionated heparin is 80-114 seconds. Blood specimen (specimen) 01/02/2012 11:21 PM EST 01/02/2012 11:24 PM EST Narrative Resulting Agency Comment Spec In Lab Sarthak Pollard MD HEMATOLOGY ORDERABLE S Performing Organization Address [facility] Co de Phone Number [facility] * (ABNORMAL) APTT (01/02/2012 5:32 PM EST) Partial Thromboplastin Time 53(H) 25 - 35 sec [facility] MILLENNIUM Comment: Recommended therapeutic PTT range for full dose unfractionated heparin is 80-114 seconds. Blood specimen (specimen) 01/02/2012 5:32 PM EST 01/02/2012 5:38 PM EST Narrative Resulting Agency Comment Spec In Lab Sarthak Pollard MD HEMATOLOGY ORDERABLE S Performing Organization Address [facility] Co de Phone Number [facility] * (ABNORMAL) APTT (01/02/2012 11:56 AM EST) Partial Thromboplastin Time 46(H) 25 - 35 sec [facility]ERNER MILLENNIUM Comment: Recommended therapeutic PTT range for full dose unfractionated heparin is 80-114 seconds. Blood specimen (specimen) 01/02/2012 11:56 AM EST 01/02/2012 12:05 PM EST Narrative Resulting Agency Comment Spec In Lab Sarthak Pollard MD HEMATOLOGY ORDERABLE S Performing Organization Address City/[facility] Co de Phone Number CERBRIAN CAENNIUM * [...] of Diabetes Mellitus, Position Statement from the [place] [employer]. ??Diabetes Care, Volume 33, Supplement [...] In Lab Andi Rene MD CHEMISTRY ORDERABLES [facility] * (ABNORMAL) CBC (with Diff) (01/02/2012 [...] MD HEMATOLOGY ORDERABLE S Performing Organization Address City/[facility]/ZIP Co de Phone Number CERNER MILLENNIUM * (ABNORMAL) APTT (01/02/2012 12:23 AM EST) Partial Thromboplastin Time 36(H) 25 - 35 sec CERNER MILLENNIUM Comment: Recommended therapeutic PTT range for full dose unfractionated heparin is 80-114 seconds. Blood specimen (specimen) 01/02/2012 12:23 AM EST 01/02/2012 12:28 AM EST Narrative Resulting Agency Comment Spec In Lab Sarthak Pollard MD HEMATOLOGY ORDERABLE S Performing Organization Address [facility] Co de Phone Number CERNER MILLENNI[facility] * (ABNORMAL) DIFFERENTIAL, AUTOMATED (01/01/2012 [...] EST Sarthak Pollard MD HEMATOLOGY ORDERABLE S [facility] M[facility] * (ABNORMAL) CBC (with Diff) (01/01/2012 [...] of variation 12.9 10.9 - 14.4 % [facility] Mean Platelet Volume 10.1 9.0 - 12.0 fL [facility] Blood specimen (specimen) 01/01/2012 6:37 PM EST 01/01/2012 6:43 PM EST Narrative Resulting Agency Comment Spec In Lab Sarthak Pollard MD HEMATOLOGY ORDERABLE S Performing Organization Address [facility] Co de Phone Number [facility] * APTT (01/01/2012 6:37 PM EST) Partial Thromboplastin Time 32 25 - [address] [facility] Comment: Recommended therapeutic PTT range for full dose unfractionated heparin is 80-114 seconds. Blood specimen (specimen) 01/01/2012 6:37 PM EST 01/01/2012 6:43 PM EST Narrative Resulting Agency Comment Spec In Lab Sarthak Pollard MD HEMATOLOGY ORDERABLE S Performing Organization Address [facility] de Phone Number [facility] * POCT GLUCOSE LAB USE ONLY (01/01/2012 12:02 PM EST) Glucose, POC 99 60 - 199 mg/dL [facility] Comment: Supplemental ranges: <110 mg/dL before meals <200 mg/dL all other times of the day Blood specimen (specimen) 01/01/2012 12:02 PM EST 01/01/2012 12:02 PM EST Andi Rene MD POINT OF CARE TEST O RDERABLES Performing Organization Address [facility] Co de Phone Number [facility] * (ABNORMAL) APTT (01/01/2012 11:59 AM EST) Partial Thromboplastin Time 108(H) 25 - [address] [facility] Comment: Recommended therapeutic PTT range for [...] MD HEMATOLOGY ORDERABLE S Performing Organization Address [facility] Co de Phone Number [facility] * (ABNORMAL) APTT (01/01/2012 5:19 AM EST) Partial Thromboplastin Time 105(H) 25 - [address] [facility] Comment: Recommended therapeutic PTT range for full dose unfractionated heparin is 80-114 seconds. Blood specimen (specimen) 01/01/2012 5:19 AM EST 01/01/2012 5:36 AM EST Narrative Resulting Agency Comment Spec In Lab Remigio Ceron MD HEMATOLOGY ORDERABLE S Performing Organization Address [facility] de Phone Number [facility] * (ABNORMAL) BMP w/fasting Glucose (01/01/2012 5:19 AM EST) Glucose Fasting 121(H) 65 - 99 mg/dL [facility] Comment: ?Fasting* Glucose Interpretive Criteria Normal [...] of Diabetes Mellitus, Position Statement from the [place] [employer]. ??Diabetes Care, Volume 33, Supplement [...] MD HEMATOLOGY ORDERABLE S Performing Organization Address [facility] Co de Phone Number [facility] * (ABNORMAL) APTT (12/31/2011 11:01 PM EST) Partial Thromboplastin Time 72(H) 25 - 35 sec [facility] Comment: Recommended therapeutic PTT range for full dose unfractionated heparin is 80-114 seconds. Blood specimen (specimen) 12/31/2011 11:01 PM EST 12/31/2011 11:18 PM EST Narrative Resulting Agency Comment Spec In Lab Andi Rene MD HEMATOLOGY ORDERABLE S Performing Organization Address [facility] de Phone Number [facility] * Upper Respiratory Culture Throat (12/31/2011 9:55 PM EST) Upper Respiratory Culture ? Patient Name: ZACK REYNA., GEOVANNA Viet ? Ordered By: ANDI RENE ? MR#: [id number] ?LOC: ??[facility] ? /Sex: ??1975 (36 years), ? Male ? PROCEDURE: Upper Respiratory Culture ?SOURCE: Throat ? COLLECTED: 12/31/2011 21:55 ? STARTED: 12/31/2011 22:16 ? FINAL REPORT ? Final Report ? Verified:2011 08:12 ? Beta Hemolytic Streptococci, Group A isolated ? PRELIMINARY REPORT ? Preliminary Report ? Verified:2011 09:46 ? Beta Hemolytic Streptococci, Group A isolated ? [facility] Specimen from throat (specimen) 12/31/2011 9:55 PM EST 12/31/2011 10:16 PM EST Narrative Resulting Agency Comment Spec In Lab Andi Rene MD MICROBIOLOGY - GENER AL ORDERABLES Performing Organization Address [facility] de Phone Number [facility] * (ABNORMAL) APTT (12/31/2011 4:34 PM EST) Pathologist [facility] Partial Thromboplastin Time 66(H) 25 - [address] [facility] Comment: Recommended therapeutic PTT range for full dose unfractionated heparin is 80-114 seconds. Blood specimen (specimen) 12/31/2011 4:34 PM EST 12/31/2011 4:39 PM EST Narrative Resulting Agency Comment Spec In Lab Andi Rene MD HEMATOLOGY ORDERABLE S Performing Organization Address [facility] Phone Number [facility] * Duplex Study for DVT, Bilat legs (12/31/2011 11:07 AM EST) Pathologist [facility] VB Text Report Department: Vascular Surgery Lab Patient: [id number] (GEOVANNA DIXON) CPT Code: 85776 ICD-9: 780.6 Referring Physician: ANDI RENE Indication: [...] 10:39 AM EST) Smear Review Report ? [facility] ? Provider: ?? ANDI RENE ?Pt. Name: ?? ZACK REYNA, GEOVANNA Llanos ? Acc #: ?[id number] ? Pt. ? Col Date: ?? 12/31/2011 [...] AM EST 12/31/2011 10:12 AM EST Andi Cate Rene MD HEMATOLOGY ORDERABLE S [facility] MILLEN[facility] * (ABNORMAL) CBC (WITH DIFF) (12/31/2011 [...] of variation 13.1 10.9 - 14.4 % [facility] Mean Platelet Volume 10.4 9.0 - 12.[address] [facility] Blood specimen (specimen) 12/31/2011 9:44 AM EST 12/31/2011 10:12 AM EST Narrative Resulting Agency Comment Spec In Lab Andi Rene MD HEMATOLOGY ORDERABLE S Performing Organization Address [facility] de Phone Number [facility] * Lactate Dehydrogenase (12/31/2011 9:44 AM EST) Lactate Dehydrogenase 123 110 - 220 unit/L [facility] Blood specimen (specimen) 12/31/2011 9:44 AM EST 12/31/2011 10:12 AM EST Narrative Resulting Agency Comment Spec In Lab Andi Rene MD CHEMISTRY ORDERABLES Performing Organization Address [facility] de Phone Number [facility] * Peripheral Smear Review (12/31/2011 9:44 AM EST) Peripheral Smear Review See Comment [facility] Comment: When completed by the Pathologist, report [id number] will display under Hematology Reports. Blood specimen (specimen) 12/31/2011 9:44 AM EST 12/31/2011 10:12 AM EST Narrative Resulting Agency Comment Spec In Lab Andi Rene MD HEMATOLOGY ORDERABLE S Performing Organization Address [facility] de Phone Number [facility] * (ABNORMAL) APTT (12/31/2011 9:44 AM EST) Partial Thromboplastin Time 50(H) 25 - [address] [facility] Comment: Recommended therapeutic PTT range for [...] S CERNER MILLENNIUM * (ABNORMAL) APTT (12/31/2011 3:38 AM EST) Partial Thromboplastin Time 47(H) 25 - 35 sec CERNER MILLENNIUM Comment: Recommended therapeutic PTT range for full dose unfractionated heparin is 80-114 seconds. Blood specimen (specimen) 12/31/2011 3:38 AM EST 12/31/2011 3:50 AM EST Narrative Resulting Agency Comment Spec In Lab Andi Rene MD HEMATOLOGY ORDERABLE S [facility] ROBYENNIUM * (ABNORMAL) BMP w/fasting Glucose (12/31/2011 3:38 [...] of Diabetes Mellitus, Position Statement from the [place] [employer]. ??Diabetes Care, Volume 33, Supplement [...] MILLENNIUM Hemoglobin 13.4(L) 13.7 - 17.5 gm/dL [facility] Hematocrit 39.0(L) 40.0 - 51.0 % CERNER MILLENNIUM Mean Cell Volume 88.6 79.0 - 92.0 fL CERNER MILLENNIUM Mean Cell Hemoglobin 30.5 25.6 - 32.2 pg CERNER MILLENNIUM Mean Cell Hemoglobin Concentration 34.4 32.0 - 36.5 gm/dL [facility] Platelet 223 145 - 370 x10(3)/mc L CERNER MILLENNIUM RDW Standard Deviation 42.0 35.0 - 46.0 fL [facility] RDW coefficient of variation 13.1 10.9 - 14.4 % [facility] Mean Platelet Volume 10.3 9.0 - 12.0 fL [facility] MILLENNIUM Blood specimen (specimen) 12/31/2011 3:38 AM EST 12/31/2011 3:50 AM EST Narrative Resulting Agency Comment Spec In Lab Remigio Ceron MD HEMATOLOGY ORDERABLE S Performing Organization Address [facility] Co de Phone Number [facility] * (ABNORMAL) APTT (12/30/2011 9:02 PM EST) Pathologist [facility] Partial Thromboplastin Time 37(H) 25 - 35 sec [facility] ROBYENNIUM Comment: Recommended therapeutic PTT range for full dose unfractionated heparin is 80-114 seconds. Blood specimen (specimen) 12/30/2011 9:02 PM EST 12/30/2011 9:10 PM EST Narrative Resulting Agency Comment Spec In Lab Andi Rene MD HEMATOLOGY ORDERABLE S Performing Organization Address [facility] Co de Phone Number [facility] * EKG 12 Lead (12/30/2011 5:24 PM EST) Ventricular rate 107 BPM MUSE SYSTEM Atrial Rate 107 BPM MUSE SYSTEM P-R Interval 160 ms MUSE SYSTEM QRS Duration 104 ms MUSE SYSTEM Q-T Interval 310 ms MUSE SYSTEM QTC Calculated (Bezet) 413 ms MUSE SYSTEM Calculated P [place] 24 degrees MUSE SYSTEM Calculated R [place] 25 degrees MUSE SYSTEM Calculated T [place] 54 degrees MUSE SYSTEM INTERPRETATION Sinus tachycardia Cannot rule out Inferior infarct , age undetermined Nonspecific T wave abnormality Abnormal ECG When compared with ECG of 29-DEC-2011 23:13, No significant change was found Confirmed by MD ESPOSITO BRUCE ([id number]) on 12/31/2011 10:51:02 AM MUSE SYSTEM 12/30/2011 5:24 PM EST 12/31/2011 10:51 AM EST Andi Rene MD ECG ORDERABLES MUSE SYSTEM * Blood culture (12/30/2011 5:04 PM EST) Blood Culture ? Patient Name: GEOVANNA DIXON JR ?Ordered By: ANDI RENE ? MR#: [id number] ?LOC: ??[facility] ? /Sex: ??1975 (36 years), [...] EST) Blood Culture ? Patient Name: ZACK GEOVANNA REYNA ?Ordered By: ANDI RENE ? MR#: [id number] ?LOC: ??[facility] ? /Sex: ??1975 (36 years), [...] Lab Andi S Anju DE MICROBIOLOGY - BLOOD ORDERABLES CERBRIAN CAENNIUM * (ABNORMAL) DIFFERENTIAL, AUTOMATED (12/30/2011 4:25 [...] MD HEMATOLOGY ORDERABLE S Performing Organization Address City/[facility] Co de Phone Number [facility] * ANTIBODY SCREEN (12/30/2011 4:25 PM EST) Ab Screen Interp Negative [facility] Expires at [id number] on: [id number] [facility] Blood specimen (specimen) 12/30/2011 4:25 PM EST 12/30/2011 4:36 PM EST Narrative Resulting Agency Comment Spec In Lab Andi Rene MD BLOOD BANK LAB ORDER RANDELL Performing Organization Address [facility] Phone Number [facility] * ABO/RH TYPING (12/30/2011 4:25 PM EST) Pathologist [facility] ABORH Type A Pos [facility] Blood specimen (specimen) 12/30/2011 4:25 PM EST 12/30/2011 4:36 PM EST Narrative Resulting Agency Comment Spec In Lab Andi Rene MD BLOOD BANK LAB ORDER RANDELL Performing Organization Address [facility] de Phone Number [facility] * Glucose, random (12/30/2011 4:25 PM EST) Pathologist [facility] Glucose 126 60 - 199 mg/dL [facility] Comment:Diabetes: >=200 mg/d L plus symptoms Blood specimen (specimen) 12/30/2011 4:25 PM EST 12/30/2011 4:43 PM EST Narrative Resulting Agency Comment Spec In Lab Andi Rene MD CHEMISTRY ORDERABLES Performing Organization Address [facility] Co de Phone Number [facility] * (ABNORMAL) CBC (with Diff) (12/30/2011 4:25 PM EST) Pathologist [facility] White Blood Cell 18.8(H) 4.0 - 10.0 x10(3)/mc L [facility]ERNER MILLENNIUM Red Blood Cell 4.47(L) 4.63 - 6.08 x10(6)/mc L [facility] M[facility] Hemoglobin 13.7 13.7 - 17.5 gm/dL [facility] Hematocrit 39.7(L) 40.0 - 51.0 % [facility] Mean Cell Volume 88.8 79.0 - 92.0 fL [facility] Mean Cell Hemoglobin 30.6 25.6 - 32.2 pg [facility] Mean Cell Hemoglobin Concentration 34.5 32.0 - 36.5 gm/dL [facility] Platelet 223 145 - 370 x10(3)/mc L [facility] MILL[facility] RDW Standard Deviation 42.6 35.0 - 46.0 fL [facility] RDW coefficient of variation 13.2 10.9 - 14.4 % [facility] Mean Platelet Volume 10.5 9.0 - 12.0 fL [facility] Blood specimen (specimen) 12/30/2011 4:25 PM EST 12/30/2011 4:43 PM EST Narrative Resulting Agency Comment Spec In Lab Andi Rene MD HEMATOLOGY ORDERABLE S Performing Organization Address [facility] Co de Phone Number [facility] * APTT (12/30/2011 2:08 PM EST) Pathologist [facility] Partial Thromboplastin Time 31 25 - [address] [facility] Comment: Recommended therapeutic PTT range for full dose unfractionated heparin is 80-114 seconds. Blood specimen (specimen) 12/30/2011 2:08 PM EST 12/30/2011 2:27 PM EST Narrative Resulting Agency Comment Spec In Lab Andi Rene MD HEMATOLOGY ORDERABLE S Performing Organization Address City/[facility]/ZIP Co de Phone Number [facility] * Cardiac Enzymes (12/30/2011 2:08 PM EST) Pathologist [facility] Troponin-T 0.03 <=0.03 ng/mL [facility] Comment: 0.03 ng/mL: Represents the 99th percentile upper reference limit for normals. >0.03 ng/mL: Elevated cardiac troponin T level indicative of myocardial damage. Diagnosis of acute, evolving or recent GA requires a typical rise and gradual fall [...] consensus document of the Joint Society of Cardiology/Finnish College of Cardiology Committee for the redefinition of myocardial infarction. Journal of the [place] College of Cardiology 2000; 36: 959-969] Creatine Kinase 72 0 - 200 unit/L ARIAN NELSON Blood specimen (specimen) 12/30/2011 2:08 PM EST 12/30/2011 2:27 PM EST Narrative Resulting Agency Comment Spec In Lab Remigio Ceron MD CHEMISTRY ORDERABLES Performing Organization Address [facility] Co de Phone Number [facility]AN [facility] * HIV (12/30/2011 10:18 AM EST) HIV 1/2 Ab Negative [facility]AN [facility] Blood specimen (specimen) 12/30/2011 10:18 AM EST 12/30/2011 10:28 AM EST Narrative Resulting Agency Comment Spec In Lab Andi Rene MD CHEMISTRY ORDERABLES Performing Organization Address [facility] Co de Phone Number [facility] * Echo Transthoracic (Complete) (12/30/2011 9:47 AM EST) EF 55 HEARTLAB SYSTEM Anatomical Region Laterality Modality Other 12/30/2011 Narrative 12/30/2011 10:02 AM EST Procedure: ? Transthoracic Echocardiogram Patient: ? ZACK AUSTIN P ?(Age): 1975(36) Med Rec#: ?[id number] ? Sex: ?M ? Site Loc: ?[facility] ? Ht / Wt: ??180(cm)/124(kg) Pt. Loc: ? Adult Floor ?BSA: ?2.41 Study Date: ?12/30/2011 ? Pt. Type: Inpatient Tape: ? Referring: Remigio Ceron Rn Clinical Documentation Specialist: Benjamin Lundberg Diagnosis: ??Chest pain (786.50) CPT Code(s): ??Spectral Doppler (46765), ??Color Doppler (83929), ??Echo Full (72293), Indication(s): ??Chest Pain Rhythm: HR ?BP ?106/60 [...] 12/30/2011 10:01:28 Images reviewed and interpretation verified [facility] Cardiac Ultrasound Laboratory Procedure Note Zak Coley MD - 12/30/2011 Procedure: Transthoracic Echocardiogram Patient: ZACK Llanos DOB(Age): 1975(36) Med Rec#: [id number] Sex: M Site Loc: [facility] Ht / Wt: 180(cm)/124(kg) Pt. Loc: Adult Floor BSA: 2.41 Study Date: 12/30/2011 Pt. Type: Inpatient Tape: Referring: Remigio Ceron Rn Clinical Documentation Specialist: Benjamin Lundberg Diagnosis: Chest pain (786.50) CPT Code(s): Spectral Doppler (51172), Color Doppler (60271), Echo Full (22552), Indication(s): Chest Pain Rhythm: HR BP 106/60 [...] 12/30/2011 10:01:28 Images reviewed and interpretation verified [facility] Cardiac Ultrasound Laboratory Remigio Ceron MD ECHO ORDERABLES * (ABNORMAL) Urinalysis with microscopic (12/30/2011 9:32 AM EST) Pathologist [facility] Glucose, Urine Dipstick Negative Negative mg/dL CERNER [...] Urine Dipstick Clear Clear CERNER MILLENNIUM Specific [place] Urine Automated 1.019 1.002 - 1.030 CERNER [...] MILLENNIUM * Rapid Qual Drug Screen, Urine ([facility]) (12/30/2011 9:32 AM EST) Pathologist [facility] U IVAN Screen See Note CERNER MILLENNIUM [...] testing device is being used in the [facility] Chemistry Laboratory. Please contact the chemistry laboratory at [phone] with questions. Urine specimen (specimen) 12/30/2011 9:32 AM EST 12/30/2011 9:45 AM EST Narrative Resulting Agency Comment Spec In Lab Andi Rene MD URINE ORDERABLES Performing Organization Address City/State/[facility] Co mi Phone Number [facility] * Urine culture Clean Catch Urine (12/30/2011 9:31 AM EST) Urine Culture ? Patient Name: GEOVANNA DIXON JR ?Ordered By: ANDI RENE ? MR#: [id number] ?LOC: ??[facility] ? /Sex: ?? 4 (36 [...] EST Remigio Ceron MD HEMATOLOGY ORDERABLE S [facility] MILLENNIUM * (ABNORMAL) CBC (with [...] variation 13.0 10.9 - 14.4 % [facility] Mean Platelet Volume 10.6 9.0 - 12.0 fL ARIAN NELSON Blood specimen (specimen) 12/30/2011 7:07 AM EST 12/30/2011 7:18 AM EST Narrative Resulting Agency Comment Spec In Lab Remigio Ceron MD HEMATOLOGY ORDERABLE S ARIAN NELSON * Hemoglobin A1c (12/30/2011 7:07 AM EST) Hemoglobin A1c 6.1 4.3 - 6.1 % [facility] Estimated Average Glucose 128 mg/dL [facility] Comment: eAG equivalents for HbA1c percentages: [...] ADA website: ??http://professional.diabetes.org/glucosecalculator.aspx Reference: James MCMAHON, Kayli Cunningham, Doretha R, et al. ??Translating the A1C assay into estimated average glucose values. ??Diabetes Care 2008:31(8):7854-9858. Blood specimen (specimen) 12/30/2011 7:07 AM EST 12/30/2011 7:18 AM EST Narrative Resulting Agency Comment Spec In Lab Remigio Ceron MD CHEMISTRY ORDERABLES Performing Organization Address [facility] Phone Number [facility] * (ABNORMAL) APTT (12/30/2011 5:45 AM EST) Partial Thromboplastin Time 45(H) 25 - [address] [facility] Comment: Recommended therapeutic PTT range for full dose unfractionated heparin is 80-114 seconds. Blood specimen (specimen) 12/30/2011 5:45 AM EST 12/30/2011 6:10 AM EST Narrative Resulting Agency Comment Spec In Lab Andi Rene MD HEMATOLOGY ORDERABLE S Performing Organization Address [facility] Phone Number [facility] * (ABNORMAL) Glucose, fasting (12/30/2011 5:45 AM EST) Glucose Fasting 108(H) 65 - 99 mg/dL [facility] Comment: ?Fasting* Glucose Interpretive Criteria Normal [...] of Diabetes Mellitus, Position Statement from the [place] Diabetes Association. ??Diabetes Care, Volume 33, Supplement 1, Nov 2009 Blood specimen (specimen) 12/30/2011 5:45 AM EST 12/30/2011 6:10 AM EST Narrative Resulting Agency Comment Spec In Lab Remigio Ceron MD CHEMISTRY ORDERABLES [facility] * (ABNORMAL) Triglyceride (12/30/2011 5:45 AM EST) Triglyceride 245(H) <=149 mg/dL [facility] Comment: Reference Range: Normal triglycerides: ??<150 mg/dL Borderline high: ??150-199 mg/dL High: ??200-499 mg/dL Very high: ??>ay=290 mg/dL ELISEO 2001; 285(19):9661-1782 Blood specimen (specimen) 12/30/2011 5:45 AM EST 12/30/2011 6:10 AM EST Narrative Resulting Agency Comment Spec In Lab Remigio Ceron MD CHEMISTRY ORDERABLES Performing Organization Address [facility] Co de Phone Number [facility] * (ABNORMAL) HDL/Cholesterol Profile (12/30/2011 5:45 AM EST) Cholesterol, Total 170 <=199 mg/dL [facility] Comment: Recommendations of the NCEP Adult Treatment Panel for the following risk cutoff thresholds for the [place] population: Desirable: <200 mg/dL Borderline High: 200-239 mg/dL High: > or = 240 mg/dL HDL Cholesterol 36(L) >=40 mg/dL [facility] Comment: Reference range: ??Low HDL: ?? < 40 mg/dL ??Normal: ?40-60 mg/dL ??Desirable: > 60 mg/dL ELISEO 2001; 285(19):6282-4698 Cholesterol/HDL Ratio 4.[address] [facility] Comment: A Cholesterol to HDL ratio below 4:1 is desirable. ??Studies suggest that increased CAD risk occurs at ratios above 5 for females and above 6 for men. ? [place] Heart Association ??(http://www.americanheart.org) ? Jazmine Int Med, 1994; 121:641 ? AM J Med, 1998; 105(1A):48S Blood specimen (specimen) 12/30/2011 5:45 AM EST 12/30/2011 6:10 AM EST Narrative Resulting Agency Comment Spec In Lab Remigio Ceron MD CHEMISTRY ORDERABLES Performing Organization Address [facility] de Phone Number [facility] * (ABNORMAL) LDL Cholesterol, Direct (12/30/2011 5:45 AM EST) LDL Cholesterol, Direct 110(H) <=99 mg/dL [facility] Comment: The National Cholesterol Education Program (NCEP) has set the following guidelines for LDL Cholesterol: Reference range: ?? Optimal: ?<100 mg/dL ?? Near Optimal/Above Optimal: ?? 100-129 mg/dL ?? Borderline high: ?130-159 mg/dL ?? High: ? 160-189 mg/dL ?? Very high: ?>ut=462 mg/dL ELISEO 2001: 285(19):3124-2446 Blood specimen (specimen) 12/30/2011 5:45 AM EST 12/30/2011 6:10 AM EST Narrative Resulting Agency Comment Spec In Lab Remigio Ceron MD CHEMISTRY ORDERABLES Performing Organization Address [facility] de Phone Number [facility] * (ABNORMAL) Cardiac Enzymes (12/30/2011 5:45 AM EST) Pathologist [facility] Troponin-T 0.05(H) <=0.03 ng/mL [facility] Comment: 0.03 ng/mL: Represents the 99th percentile upper reference limit for normals. >0.03 ng/mL: Elevated cardiac troponin T level indicative of myocardial damage. Diagnosis of acute, evolving or recent GA requires a typical rise and gradual fall [...] consensus document of the Joint Society of Cardiology/[place] College of Cardiology Committee for the redefinition of myocardial infarction. Journal of the [place] College of Cardiology 2000; 36: 959-969] Creatine [...] MD HEMATOLOGY ORDERABLE S Performing Organization Address [facility] Co de Phone Number ARIAN NELSON * (ABNORMAL) Cardiac Enzymes (12/29/2011 11:29 PM EST) Troponin-T 0.08(H) <=0.03 ng/mL [facility] Comment: 0.03 ng/mL: Represents the 99th percentile upper reference limit for normals. >0.03 ng/mL: Elevated cardiac troponin T level indicative of myocardial damage. Diagnosis of acute, evolving or recent GA requires a typical rise and gradual fall [...] consensus document of the Joint Society of Cardiology/[place] College of Cardiology Committee for the redefinition of myocardial infarction. Journal of the [place] College of Cardiology 2000; 36: 959-969] Creatine Kinase 86 0 - 200 unit/L ARIAN NELSON Blood specimen (specimen) 12/29/2011 11:29 PM EST 12/29/2011 11:34 PM EST Narrative Resulting Agency Comment Spec In Lab Remigio Ceron MD CHEMISTRY ORDERABLES Performing Organization Address [facility]/ZIP Co de Phone Number ARIAN NELSON * Prothrombin Time (12/29/2011 11:29 PM EST) Prothrombin Time 13.2 11.9 - 14.7 sec ARIAN NELSON Comment: [facility] Transfusion Committee Guidelines: INR less than [...] MD HEMATOLOGY ORDERABLE S Performing Organization Address [facility] Co de Phone Number CERBRIAN CAENNIUM * Hepatic [...] Ceron MD CHEMISTRY ORDERABLES Performing Organization Address [facility] de Phone Number CERBRIAN CAENNIUM * pro-Brain Natriuretic Peptide (12/29/2011 11:29 PM EST) NT-proBNP 114 <=125 pg/mL CERNER MILLENNIUM Blood specimen (specimen) 12/29/2011 11:29 PM EST 12/29/2011 11:34 PM EST Narrative Resulting Agency Comment Spec In Lab Remigio Ceron MD CHEMISTRY ORDERABLES Performing Organization Address [facility] Co de Phone Number ARIAN CAENNIUM * TSH (12/29/2011 11:29 PM EST) Thyroid Stimulating Hormone 0.39 0.27 - 4.20 mcIU/mL CERNER MILLENNIUM Blood specimen (specimen) 12/29/2011 11:29 PM EST 12/29/2011 11:34 PM EST Narrative Resulting Agency Comment Spec In Lab Remigio Ceron MD CHEMISTRY ORDERABLES Performing Organization Address [facility] Co de Phone Number CERNER ROBYENNIUM * Phosphorus (12/29/2011 11:29 PM EST) Phosphorus 3.1 2.5 - 4.5 mg/dL CERNER MILLENNIUM Blood specimen (specimen) 12/29/2011 11:29 PM EST 12/29/2011 11:34 PM EST Narrative Resulting Agency Comment Spec In Lab Remigio Ceron MD CHEMISTRY ORDERABLES Performing Organization Address [facility] Co de Phone Number CERNER ROBYENNIUM * Magnesium (12/29/2011 11:29 PM EST) Magnesium 0.83 0.69 - 1.07 mmol/L CERNER MILLENNIUM Blood specimen (specimen) 12/29/2011 11:29 PM EST 12/29/2011 11:34 PM EST Narrative Resulting Agency Comment Spec In Lab Remigio Ceron MD CHEMISTRY ORDERABLES Performing Organization Address [facility] Co de Phone Number CERNER MILLENNIUM [...] MD HEMATOLOGY ORDERABLE S Performing Organization Address [facility] Co de Phone Number [facility] * APTT (12/29/2011 11:29 PM EST) Partial Thromboplastin Time 34 25 - 35 sec [facility] MILLENNIUM Comment: Recommended therapeutic PTT range for full dose unfractionated heparin is 80-114 seconds. Blood specimen (specimen) 12/29/2011 11:29 PM EST 12/29/2011 11:34 PM EST Narrative Resulting Agency Comment Spec In Lab Remigio Ceron MD HEMATOLOGY ORDERABLE S Performing Organization Address City/[facility] Co de Phone Number [facility] * EKG 12 Lead (12/29/2011 11:13 PM EST) Ventricular rate 108 BPM MUSE SYSTEM Atrial Rate 108 BPM MUSE SYSTEM P-R Interval 150 ms MUSE SYSTEM QRS Duration 106 ms MUSE SYSTEM Q-T Interval 340 ms MUSE SYSTEM QTC Calculated (Bezet) 455 ms MUSE SYSTEM Calculated P [place] 19 degrees MUSE SYSTEM Calculated R [place] 31 degrees MUSE SYSTEM Calculated T [place] 51 degrees MUSE SYSTEM INTERPRETATION Sinus tachycardia Nonspecific T wave abnormality Abnormal ECG No previous ECGs available Confirmed by Madi FROD MD, Nathaniel ([id number]) on 12/30/2011 2:22:07 PM [...] Routine 09 (Given - Provider: Michelle Chong RN)1499 (Given - Provider: Michelle Chong RN)2008 (Given - Provider: Hermila Dumas RN) 899 (Given - Provider: Michelle Chong RN)1499 (Given - Provider: Michelle Chong RN)2000 (Given - Provider: Hermila uDmas RN) 09 (Given - Provider: Sangita Self RN) senna-docusate (PERICOLACE) 8.6-50 mg per tablet 2 tablet 2 tablet, Oral, DAILY, First dose on Wed01/05/12 at 2100, Until Discontinued, Post-op day 1, Routine 2008 (Given - Provider: Hermila Dumas RN) 2000 (Given - Provider: Hermila Dumas, DAVID) sertraline (ZOLOFT) tablet 50 mg (CANCELED) 50 mg, Oral, DAILY, First dose on Wed01/05/12 at 1015, Until Discontinued, Routine 2009 (Given - Provider: Hermila Dumas RN) 2000 (Given - Provider: Hermila Dumas, DAVID) simvastatin (ZOCOR) tablet 20 mg (CANCELED) 20 [...] Routine documented in this encounter Care Teams Broadcast Journalist Relationship Specialty Start Date End Date Patric Al MD PCP - General 12/29/11 02/26/19 documented as of this encounter
--- OUTSIDE RECORDS SUMMARY | 2024-07-25 15:06 | XMS_ITS | Encounter Summary ---
Author Organization [facility] Address [address] [place] [address] Care Team Providers Care Towboat Pilot Name Role Phone Unavailable Primary Care Provider Unavailabl e Encounter Details Date Type Department Care Team (Late st Contact Info) Description 03/09/2008 Before PRISM Converted Visit (Maple) [facility] - [facility] conversion [address] [place] [address] Wil Tay MD [address] [id number] Social History Tobacco Use Types Packs/Day Years Used Date Smoking Tobacco: Never Assessed Sex and Gender Information Value Date Recorded Sex Assigned at Not on file Gender Identity Not on file Sexual Orientation Not on file documented as of this encounter Progress Notes * Wil Tay* MD SANTINO - 08/09/2009 0909 EDT March 09, 2008 Anna Hoang MD [facility] [address] [address] Dear Anna: Thank you for referring Mr. [...] and an EEG that was normal in [place], [place]. He currently is taking a [...] He denies symptoms of restless legs. His Nova sleepiness is 23/24. PAST MEDICAL HISTORY Hypertension. He has just recently developed hypertension. He did not respond well to lisinopril, so he is currently on Cozaar and this has been helping his blood pressure some. It has not worsened his cataplexy any. ALLERGIES No known drug allergies. MEDICATIONS Cozaar, methylphenidate, amphetamine, clomipramine, Provigil, Effexor, Viagra, Rolaids, and Tylenol. SOCIAL HISTORY He has a 81-[id number]-[id number] history of smoking, which is a lot for a young man like him. He drinks 8-12 cups of coffee a day. No other caffeine intake. No alcohol. No drug use. 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 Coordination: Normal vlmpvm-kv-[id number] and soynvn-wp-rfuw and rapid alternating movements. DTRs are +2 [...] hometown. 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, [place] [address]* documented in this encounter Plan of Treatment Not on file documented as of this encounter Visit Diagnoses Not on filedocumented in this encounter
--- OUTSIDE RECORDS SUMMARY | 2024-07-25 15:06 | XMS_ITS | Referral Summary ---
Author Organization [facility] Address [address] [place] [address] Care Team Providers Care Body Wirer Name Role Phone Jorge Cameron Viet FINAL CIGAR AND BOX EXAMINER Primary Care Provider [phone] Medications Medication Sig Dispensed Refills Start Date [...] C Antibody Negative Negative 12/04/2022 8:56 EST [facility] Blood VENOUS BLOOD / Unknown 12/02/2022 11:40 EST 12/03/2022 17:36 EST Provider Outr Resulting Lab CHEMISTRY & BLOOD GAS ORDERABLES [facility] [address] [place] [address] from Last 3 Months or Most Recently Relevant to Health Maintenance Care Teams Body Wirer Relationship Specialty Start Date End Date Cameron Patel, FINAL CIGAR AND BOX EXAMINER [address] [facility] [place] [phone] PCP - General 10/22/09
--- OUTSIDE RECORDS SUMMARY | 2024-07-25 15:06 | XMS_ITS | Encounter Summary ---
Author Organization [facility] Address [address] [place] [address] Care Team Providers Care Director Life Insurance Name Role Phone Jorge Cameron Llanos STEM THRESHING MACHINE OPERATOR Primary Care Provider [phone] Encounter Details Date Type Department Care Team (Late st Contact Info) Description 10/02/2020 Lab Requisition [facility] Pathology & Laboratory Medicine - [address] [address] Outr Resulting Lab, Provider Social History Tobacco [...] 4th Generation Negative Negative 10/22/2020 13:59 EST [facility] Comment: If acute HIV-1 infection is suspected in a high risk ??patient, submit plasma specimen for HIV-1 RNA quantitation test. Fourth Generation assay performed on the Siemens Centaur. Blood VENOUS BLOOD / Unknown 09/19/2020 16:00 EST 10/22/2020 7:12 EST Provider Outr Resulting Lab IMMUNOLOGY A ND SEROLOGY ORDERABLES [facility] [address] [place] [address] documented in this encounter Visit Diagnoses Not on filedocumented in this encounter Care Teams Director Life Insurance Relationship Specialty Start Date End Date Cameron Patel, STEM THRESHING MACHINE OPERATOR [address] [facility] [place] [phone] PCP - General 10/22/09 documented as of this encounter
[2024-07-25 16:57] LABS: Vitamin D 25 Total 17.1 ng/mL (30-100)
== END 2024-07-25 14:56 | disposition home or self-care (01) ==
LOC: NCHCN 14:55
PROVIDERS: PCP Family Medicine; Visit Provider Student in an Organized Health Care Education/Training Program
DX: E55.9 Vitamin D deficiency, unspecified (principal)
CPT/HCPCS: 82306

== ENCOUNTER 2024-09-20 08:11 | Emergency (ER) | payer OTHER, MEDICAID, SELFPAY ==
[2024-09-20 08:13] VITALS: BP 147/82; PULSE 119; RESP 16; TEMP 36.6; O2SAT 97
--- OUTSIDE RECORDS SUMMARY | 2024-09-20 08:20 | XMS_ITS | Encounter Summary ---
Author Organization [facility] [place] [address] Care Team Providers Care Music Professor Name Role Phone Charles Romero Primary Care Provider + Reason for Visit * Consultation (Urgent) - Closed Specialty Diagnoses / Procedures Referred By Contac t Referred To Contact Cardiology Diagnoses History of heart failure History of non-ST elevation myocardial infarction (NSTEMI) Critical limb ischemia of left lower extremity H/O heart failure and NSTEMI, HFmrEF, Cardiomyopathy, Hx of CABG. PMH critical limb ischemia of left lower extremity. Vibha Benson APRN [facility] [place] [address] [facility] [address] [place] [id number] Referral ID Status Reason Start Date Expiration Date V isits Requested Visits Authorized [id number] Closed Consult, Test & Treat 08/28/2024 08/28/2025 1 1 Encounter Details Date Type Department Care Team (Late st Contact Info) Description 09/18/2024 11:20 AM EST Office Visit Cardiology at [address] [phone] Josh Olivarez MD [facility] [place] [address] Coronary artery disease, unspecified vessel or lesion type, unspecified whether angina present, unspecified whether [place] or transplanted heart Social History Tobacco Use Types Packs/Day Years Used Date Smoking Tobacco: Every Day Cigarettes 1 25 Started: 12/28/1986; Last attempted to quit: 12/28/2011 Smokeless Tobacco: Never Alcohol Use Standard Drinks/Week Comments No 0 (1 standard drink = 0.6 oz pur e alcohol) [facility] Utilities Answer Date Recorded In the past 12 months has th e electric, gas, oil, or water company threatened to shut off services in your home? No 08/02/2024 Hunger Vital Sign Answer Date Recorded Within the past 12 months, y ou worried that your food would run out before you got the money to buy more. Never true 08/02/20 Within the past 12 months, t he food you bought just didn't last and you didn't have money to get more. Never true 08/02/2024 PRAPARE - Transportation Answer Date Re corded In the past 12 months, has l ack of transportation kept you from medical appointments or from getting medications? No 07/10 In the past 12 months, has l ack of transportation kept you from meetings, work, or from getting things needed for daily living? No 08/02/2024 Housing Stability Vital Sign Answer Carlos Enrique e Recorded In the last 12 months, was t here a time when you were not able to pay the mortgage or rent on time? No 08/02/2024 In the past 12 months, how m any times have you moved where you were living? 1 08/02/2024 At any time in the past 12 m [facility], were you homeless or living in a detention (including now)? No 08/02/2024 IPV Inpatient Questions Answer Date Recorded Does Anyone Try to Keep You From Having Contact with Others or Doing Things Outside Your Home? no 08/01/2024 Feels Threatened by Someone no 07/10 Feels Unsafe at Home or Work/School no 08/01/2024 Physical Signs of Abuse Present no 08/01/2024 Sex and Gender Information Value Date Recorded Sex Assigned at Not on file Gender Identity Not on file Sexual Orientation Not on file documented as of this encounter Last Filed Vital Signs Vital Sign Reading Time Taken Comments Blood Pressure 115/77 09/18/2024 11:23 AM EST Pulse 82 09/18/2024 11:23 AM EST Temperature - - Respiratory Rate - - Oxygen Saturation 96% 09/18/2024 11:23 AM EST Inhaled Oxygen Concentration - - Weight 104.8 kg (231 lb) 09/18/2024 11:23 AM EST Height 179.1 cm (5' 10.5) 09/18/2024 11:[address] Body Mass Index 32.68 09/18/2024 11:23 AM EST documented in this encounter Progress Notes * Josh Olivarez MD - 09/18/2024 11:20 AM EST Images from the original note were not included. [facility] [place] [address] [place] [address] CARDIOLOGY OUTPATIENT PROGRESS NOTE PRIMARY CARE PROVIDER: JUSTIN Roberson REFERRING PROVIDER: Vibha Benson PROBLEM LIST: Patient Active Problem List Diagnosis 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 (SVG to PDA closed 08/2013) NSTEMI 12-29-2011 Cath - LAD, PDA and Distal Circ Disease CABG 01-04-2012 (MARTINEZ-LAD, SVG-PDA) Cardiac Cath 08/21/13: [patent MARTINEZ to LAD, occlusion of SVG to RPDA and occlusion of [place] RCA. LVEDP 21. PCI of mid and distal LCX (Xience) Echocardiogram 08/21/13: LVEF 65% PAD (peripheral artery disease) Peripheral artery disease Critical limb ischemia of left lower extremity Diabetes mellitus HBAIC 10 this admission. Per [...] up with PCP or Dr Bird in [facility] Obesity Weight is 130.5 Kg on 08/22/13 NSTEMI (non-ST elevated myocardial infarction) , NSTEMI, [facility] HTN (hypertension) Hyperlipidemia Depression Narcolepsy MEDICATIONS: Current Outpatient Medications Medication Sig Dispense Refill senna-docusate (Pericolace) 8.6-50 mg Tablet Take 2 tablets by mouth 2 times daily. 60 tablet 11 freestyle lite strips 1 strip by Other route 3 times daily. Use as instructed Indications: [id number] each 1 FreeStyle Lancets 28 gauge Misc 1 each by Other route 3 times daily. Indications: diabetes 100 each0 metFORMIN (Glucophage) 1,000 mg tablet Take 1 tablet by mouth 2 times daily (with meals). Indications: type 2 diabetes mellitus 180 tablet 1 Lantus Solostar U-100 Insulin 100 unit/mL (3 mL) pen Inject 50 Units subcutaneously daily. Indications: type 2 diabetes mellitus 15 mL 1 insulin needles, disposable, 32 gauge x 5/32 Needle Inject 1 each subcutaneously daily. Indications: diabetes 100 each 1 insulin lispro (humaLOG KwikPen) 100 unit/mL Insulin Pen Inject 5-25 Units subcutaneously 3 times daily (with meals). Indications: type 2 diabetes mellitus, whatver the most affordable version is forhis insurance 15 mL 1 insulin glargine (Lantus) 100 unit/mL (3 mL) pen Inject 50 Units subcutaneously nightly. 3 mL 11 rivaroxaban (Xarelto) 20 mg tablet Take 1 tablet by mouth daily. 30 tablet 11 losartan (Cozaar) 50 mg tablet Take 1 tablet by mouth daily. 90 tablet 3 metoprolol succinate XL (Toprol-XL) 25 mg ER 24 hr tablet Take 1 tablet by mouth daily. 30 tablet 12 atorvastatin (Lipitor) 80 mg tablet Take 1 tablet by mouth every evening. 90 tablet 3 insulin lispro (humaLOG KwikPen) 100 unit/mL Insulin Pen Inject SQ 3 times daily before meals: 10 unit meal dose plus sliding scale 1:20>140 - see insulin chart for instructions Indications: type 2 diabetes mellitus 15 mL 0 aspirin EC 81 mg EC (DR) tablet Take 1 tablet by mouth daily. 30 tablet 3 omeprazole 20 mg Tablet,Rapid Dissolve, DR Take by mouth Daily at Noon. Lancets (FREESTYLE LANCETS) Misc by Other route 2 times daily as needed. 1 box = 100 lancets Indications: prediabetes now s/p CABG 100 each 11 acetaminophen (TYLENOL) 500 mg tablet Take 2 tablets by mouth every 6 hours as needed for Pain. 30 tablet protriptyline (VIVACTIL) 5 mg tablet Take 10 mg by mouth every 8 hours. venlafaxine (EFFEXOR) 75 mg tablet Take 225 mg by mouth daily. oxyCODONE (Roxicodone) 5 mg tablet Take 1 tablet by mouth every 4 hours as needed for Pain (severe pain refractory to Tyelnol). (Patient not taking: Reported on 08/28/2024) 10 tablet 0 metFORMIN (Glucophage) 500 mg tablet Take 2 tablets by mouth 2 times daily. (Patient not taking: Reported on 09/18/2024) 120 tablet 0 dulaglutide (Trulicity) 1.5 mg/0.5 mL Pen Injector Inject 0.5 mLs subcutaneously once a week. Indications: type 2 diabetes mellitus (Patient not taking: Reported on 08/28/2024) 2 mL 11 empagliflozin (Jardiance) 25 mg tablet Take 1 tablet by mouth daily. (Patient not taking: Reported on 08/28/2024) 30 tablet 0 nitroGLYcerin (NITROSTAT) 0.[address] 1 tablet under the tongue daily as needed for Chest pain. (Patient not taking: Reported on 08/28/2024) 25 tablet 1 No current facility-administered medications for this visit. Subjective: Patient ID: Lux Dixon Jr. is a 49 y.o. patient of JUSTIN Roberson. HPI: Came to the clinic today for a follow-up after undergoing vascular surgery because of critical limbischemia. He denies any cardiac complaints at this point denying angina, CHF manifestations, syncope or presyncope and his leg appear to be healing satisfactorily. Unfortunately he continues to smoke. He is status post CABG x 2 with SVG to the PDA known to be close in 08/27/2015. REVIEW OF SYSTEMS: Unchanged from prior records Family History: Family History Problem Relation Age of Onset Coronary Artery Disease Mother Coronary Artery Disease Paternal Aunt Coronary Artery Disease Paternal Uncle Coronary Artery Disease Paternal Grandmother Coronary Artery Disease Paternal Grandfather Social History: Social History Socioeconomic History Marital status: Spouse name: Not on file Number of children: Not on file Years of education: Not on file Highest education level: Not on file Occupational History Not on file Tobacco Use Smoking status: Every Day Current packs/day: 0.00 Average packs/day: 1 pack/day for 25.0 years (25.0 ttl pk-yrs) Types: Cigarettes Start date: 12/28/1986 Last attempt to quit: 12/28/2011 Years since quittin.7 Smokeless tobacco: Never Substance and Sexual Activity Alcohol use: No Drug use: No Sexual activity: Not on file Other Topics Concern Not on file Social History Narrative Not on file Social Determinants of Health Financial Resource Strain: Not on file Food Insecurity: No Food Insecurity (08/02/2024) Hunger Vital Sign Worried About Running Out of Food in the Last Year: Never true Ran Out of Food in the Last Year: Never true Transportation Needs: No Transportation Needs (08/02/2024) PRAPARE - Transportation Lack of Transportation (Medical): No Lack of Transportation (Non-Medical): No Physical Activity: Not on file Intimate Partner Violence: Not At Risk (08/01/2024) IPV Inpatient Questions Prevent Contact with Others: no Feels Threatened by Someone: no Feels Unsafe at Home: no Physical Signs of Abuse Present: no Housing Stability: Low Risk (08/02/2024) Housing Stability Vital Sign Unable to Pay for Housing in the Last Year: No Number of Times Moved in the Last Year: 1 Homeless in the Last Year: No Objective: PHYSICAL EXAM: BP 115/77 Pulse 82 Ht 179.1 cm (5' 10.5) Wt 104.8 kg (231 lb) SpO2 96% BMI 32.68 kg/m?? , Body mass index is 32.68 kg/m??. General: Pleasant. No distress. Skin: Warm and dry. HEENT: Anicteric sclera. Neck: JVP not elevated. No AJR. No carotid bruits. Chest: Clear to auscultation Heart: No heave. Regularly regular rhythm. Normal S1 and S2. No gallops. No murmurs. Abdomen: Nondistended. Soft. Nontender. Extremities: No edema. MAKE READY MECHANIC: Normal mentation. Psych: Appropriate affect. Labs: Lab Results Component Value Date WBC 10.74 (H) 08/03/2024 WBC 11.20 (H) 08/02/2024 WBC 12.8 (H) 06/02/2024 WBC 11.8 (H) 06/01/2024 HGB 12.5 (L) 08/03/2024 HGB 12.0 (L) 08/02/2024 HGB 13.7 06/02/2024 HGB 14.1 06/01/2024 PLATELET 309 08/03/2024 PLATELET 330 08/02/2024 PLATELET 283 06/02/2024 PLATELET 264 06/01/2024 NA 135 08/03/2024 NA 138 08/02/2024 NA 138 07/21/2024 NA 137 06/02/2024 NA 135 06/01/2024 NA 133 (L) 05/31/2024 K 3.9 08/03/2024 K 3.7 08/02/2024 K 4.0 06/02/2024 K 4.1 06/01/2024 CL 100 08/03/2024 CL 102 08/02/2024 CL 102 06/02/2024 CL 102 06/01/2024 CO2 26 08/03/2024 CO2 24 08/02/2024 CO2 23 06/02/2024 CO2 22 06/01/2024 BUN 10 08/03/2024 BUN 11 08/02/2024 BUN 7 (L) 06/02/2024 BUN 7 (L) 06/01/2024 CREATININE 0.50 (L) 08/03/2024 CREATININE 0.56 (L) 08/02/2024 CREATININE 0.52 (L) 06/02/2024 CREATININE 0.54 (L) 06/01/2024 CHLPL 114 07/18/2024 CHLPL 156 05/31/2024 CHLPL 218 (H) 08/21/2013 HDL 38 07/18/2024 HDL 33 05/31/2024 HDL 24 (L) 08/21/2013 CHOLHDL 9.1 08/21/2013 CHOLHDL 4.7 12/30/2011 TRIG 733 (H) 08/21/2013 TRIG 245 (H) 12/30/2011 Assessment and Plan: #1 coronary artery disease Claims to be asymptomatic. Status post bypass with 1 bypass to the PDA known to be close since August 2023. A myocardial perfusion study in 05/30/2024 revealed a small fixed perfusion defect in the apical anterior and apex regions there was no ischemia. Continue same regimen #2 peripheral arterial disease with critical limb ischemia status post left iliofemoral endarterectomy, left femoral to below-knee popliteal artery bypass. Doing well, managed by surgery #3 tobacco dependency Long discussion about the importance of cigarette cessation #4 hypertension #5 diabetes mellitus #6 hyperlipidemia Thank you for the opportunity to participate in this patient's cardiovascular care. All questions were answered and I look forward to the next visit. Josh Olivarez MD documented in this encounter Plan of Treatment Scheduled Referrals Name Type Priority Associated Diagnoses Order Schedule Referral to Cardiology Outpatient Referral Urgent Critical limb ischemia of left lower extremity Ordered: 08/28/2024 documented as of this encounter Visit Diagnoses Diagnosis Coronary artery disease, unspecified vessel or lesion type, unspecified whether angina present, unspecified whether [place] or transplanted heart documented in this encounter Care Teams Music Professor Relationship Specialty Start Date End Date Charles Romero [place] [address] [place] [address] PCP - General Internal Medicine 09/18/24 documented as of this encounter
--- OUTSIDE RECORDS SUMMARY | 2024-09-20 08:20 | XMS_ITS | Encounter Summary ---
Author Organization [facility] [place] [address] Care Team Providers Care Personnel Adviser Name Role Phone Charles Romero Primary Care Provider + Encounter Details Date Type Department Care Team (Latest Contact Info) Description 09/18/2024 Travel Social History Tobacco Use Types Packs/Day Years Used Date Smoking Tobacco: Every Day Cigarettes 12 02 Started: 12/28/1986; Last attempted to quit: 12/28/2011 Smokeless Tobacco: Never Alcohol Use Standard Drinks/Week Comments No 0 (1 standard drink = 0.6 oz pur e alcohol) [facility] Utilities Answer Date Recorded In the past 12 months has th e electric, gas, oil, or water company threatened to shut off services in your home? No 08/02/2024 Hunger Vital Sign Answer Date Recorded Within the past 12 months, y ou worried that your food would run out before you got the money to buy more. Never true 08/02/20 24 Within the past 12 months, t [...] any time in the past 12 m [facility], were you homeless or living in a group home (including now)? No 08/02/2024 DH IPV Inpatient Questions Answer Date Recorded [...] on filedocumented in this encounter Care Teams Personnel Adviser Relationship Specialty Start Date End Date Charles Romero PA [address] [place] [address] PCP - General Internal Medicine 09/18/24 documented as of this encounter
--- OUTSIDE RECORDS SUMMARY | 2024-09-20 08:20 | XMS_ITS | Encounter Summary ---
Author Organization [facility] Address [facility] [place] [address] Care Team Providers Care Crew Director Name Role Phone None Primary Care Provider Unavailabl e Encounter Details Date Type Department Care Team (Late st Contact Info) Description 09/06/2024 [address]phone [address] [facility] [place] [phone] Fallon Lemus RN Social History Tobacco Use Types Packs/Day Years Used Date Smoking Tobacco: Every Day Cigarettes 1 25 Started: 12/28/1986; Last attempted to quit: 12/28/2011 Smokeless Tobacco: Never Alcohol Use Standard Drinks/Week Comments No 0 (1 standard drink = 0.6 oz pur e alcohol) [facility] Utilities Answer Date Recorded In the past [...] any time in the past 12 m [facility], were you homeless or living in a penitentiary (including now)? No 08/02/2024 DH IPV Inpatient [...] Telephone Encounter - Fallon Lemus RN - 09/06/2024 11:21 AM EDT Incoming call from Luis Enrique with [facility] reporting that 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 Luis Enrique reported there is a dry, yellowish brown scab over the area. No redness or drainage. Lux 5th toe nail has fungus growing under it. Luis Enrique reported he has advised Lux to see a production support specialist for care for the fifth toe nail. Wound care for the second toe amp site currently includes painting with betadine and wrapping with gauze followed by an candice wrap. Luis Enrique reports that the diabetic shoe that Lux had been wearing is broken and unusable. Luis Enrique would like to know if the orders can be changed to: daily painting of first toe, second toe ampsite, and 5th toe with betadine, use of a band-aid over second toe amp site instead of gauze wrap and use of tubigrip or regular socks and own shoes. Luis Enrique was advised that a message would be sent to Dr. Dickson and any new orders would be faxed to [facility] at [phone]. Luis Enrique verbalized understanding. DAVID Viverosfood service director [facility] documented in this encounter Plan of Treatment Not on file documented as of this encounter Visit Diagnoses Not on filedocumented in this encounter Care Teams Crew Director Relationship Specialty Start Date End Date None None PCP - General 05/27/24 09/17/24 documented as of this encounter
--- OUTSIDE RECORDS SUMMARY | 2024-09-20 08:20 | XMS_ITS | Clinical Summary ---
Author Organization Formerly [facility], Later [facility] Address [facility] [place] [address] Care Team Providers Care Lining Repairer Name Role Phone Charles Romero Primary Care Provider + Allergies No known active allergies Medications Medication Sig Dispensed Refills Start Date End Date Status protriptyline (VIVACTIL) 5 mg tablet Take 10 mg by mouth every 8 hours. Active venlafaxine (EFFEXOR) 75 mg tablet Take 225 mg by mouth daily. Active Lancets (FREESTYLE LANCETS) MiscIndications:p rediabetes now s/p CABG by Other route 2 times daily as needed. 1 box = 100 lancets Indications: prediabetes now s/p CABG 100 each 11 01/08/2012 Active acetaminophen (TYLENOL) 500 mg tablet Take 2 tablets by mouth every 6 hours as needed for Pain. 30 tablet 01/08/2012 Active nitroGLYcerin (NITROSTAT) 0.[address] 1 tablet under the tongue daily as needed for Chest pain. 25 tablet 1 08/22/2013 Active Additional Information Patient not taking.Reported on 08/28/2024 omeprazole 20 mg Tablet,Rapid Dissolve, DR Take [...] 2 times daily. 120 tablet 06/02/2024 Active Additional Information Patient not taking.Reported on 09/18/2024 dulaglutide (Trulicity) 1.5 mg/0.5 mL Pen InjectorIndicatio ns:type 2 diabetes mellitus Inject 0.5 mLs subcutaneously once a week. Indications: type 2 diabetes mellitus 2 mL 11 06/02/2024 Active Additional Information Patient not taking.Reported on 08/28/2024 empagliflozin (Jardiance) 25 mg tablet Take 1 tablet by mouth daily. 30 tablet 06/02/2024 Active Additional Information Patient not taking.Reported on 08/28/2024 aspirin EC 81 mg EC (DR) tablet Take 1 tablet by mouth daily. 30 tablet 3 06/03/2024 Active freestyle lite stripsIndications :diabetes mellitus 1 strip by Other route 3 times daily. Use as instructed Indications: diabetes 100 each 1 07/21/2024 Active FreeStyle Lancets 28 gauge MiscIndications:d iabetes mellitus 1 each by Other route 3 times daily. Indications: diabetes 100 each 07/21/2024 Active metFORMIN (Glucophage) 1,000 mg tabletIndications :type 2 diabetes mellitus Take 1 tablet by mouth 2 times daily (with meals). Indications: type 2 diabetes mellitus 180 tablet 1 07/21/2024 Active Lantus Solostar U-100 Insulin 100 unit/mL (3 mL) penIndications:ty pe 2 diabetes mellitus Inject 50 Units subcutaneously daily. Indications: type 2 diabetes mellitus 15 mL 1 07/21/2024 Active insulin needles, disposable, 32 gauge x 5/32 NeedleIndications :diabetes mellitus Inject 1 each subcutaneously daily. Indications: diabetes 100 each 07/21/2024 Active insulin lispro (humaLOG KwikPen) 100 unit/mL Insulin PenIndications:ty pe 2 diabetes mellitus,whatver the most affordable version is for his insurance Inject 5-25 Units subcutaneously 3 times daily (with meals). Indications: type 2 diabetes mellitus, whatver the most affordable version is for his insurance 15 mL 1 07/21/2024 Active insulin glargine (Lantus) 100 unit/mL (3 mL) pen Inject 50 Units subcutaneously nightly. 3 mL 11 07/21/2024 Active rivaroxaban (Xarelto) 20 mg tablet Take 1 tablet by mouth daily. 30 tablet 11 07/21/2024 Active oxyCODONE (Roxicodone) 5 mg tablet Take 1 tablet by mouth every 4 hours as needed for Pain (severe pain refractory to Tyelnol). 10 tablet 08/03/2024 Active Additional Information Patient not taking.Reported on 08/28/2024 senna-docusate (Pericolace) 8.6-50 mg Tablet Take 2 tablets by mouth 2 times daily. 60 tablet 11 08/03/2024 Active Active Problems Problem Noted Date Diagnosed Date PAD (peripheral artery disease) 08/01/2024 Peripheral artery disease 07/14/2024 Critical limb ischemia [...] up with PCP or Dr Bird in [place] Obesity 08/22/2013 Overview (08/22/2013): Weight is 130.5 Kg on 08/22/13 NSTEMI (non-ST elevated myocardial infarction) 1 Overview (08/21/2013): , NSTEMI, [facility] 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 (SVG to PDA closed 08/27 13) 01/06/2012 Overview (08/22/2013): NSTEMI 12-29-2011 Cath - LAD, PDA and Distal Circ Disease CABG 01-04-2012 (MARTINEZ-LAD, SVG-PDA) Cardiac Cath 08/21/13: [patent MARTINEZ to LAD, occlusion of SVG to RPDA and occlusion of cocopah RCA. LVEDP . PCI of mid and distal LCX (Xience) Echocardiogram 08/21/13: LVEF 65% HTN (hypertension) 12/29/2011 Hyperlipidemia 12/29/2011 Depression 12/29/2011 Narcolepsy 12/29/2011 Encounters Date Type Department Care Team Description 09/18/2024 11:20 AM EST Office Visit Cardiology at [address] [phone] Josh Olivarez MD Coronary artery disease, unspecified vessel or lesion type, unspecified whether angina present, unspecified whether cocopah or transplanted heart 09/18/2024 Travel 09/06/2024 Notes [place] [address] Fallon Lemus RN 09/06/2024 [place] [address] Fallon Lemus RN 08/29/2024 Orders [place] [address] Viviana Resendiz APRN Heart failure with mildly reduced ejection fraction (HFmrEF); Cardiomyopathy, unspecified type; Hx of CABG 08/28/2024 2:00 PM EDT Office [place] [address] Kimberli Dickson MD PAD (peripheral artery disease) 08/28/2024 1:00 PM EDT Tech [place] [address] Erick Jama [place] Critical limb ischemia of left lower extremity 08/28/2024 Travel 08/28/2024 Orders [place] [address] Hermila White APRN Critical limb ischemia of left lower extremity 08/28/2024 Orders [place] [address] Vibha Tierney APRN Critical limb ischemia of left lower extremity 08/17/2024 3:30 PM EDT Office [place] [address] Viviana Resendiz APRN PAD (peripheral artery disease); Encounter for post surgical wound check; Status post amputation of lesser toe of left foot 08/17/2024 Travel 08/01/2024 7:30 AM EDT - 08/01/2024 1:43 PM EDT [place] [address] Lisette Maldonado MD @BYPASS GRAFT, FEM-ANT TIBIAL, -POST TIBIAL, -PERONEAL, -DP W\ SYNTHETIC CONDUIT (WRVU 23.66) 08/01/2024 7:28 AM EDT Anesthesia Event Main Operating Room [place] [id number] Cornelius Church MD Maliszewski, Matthew S, CHERYL 08/01/2024 5:32 AM EDT - 08/03/2024 4:45 PM EDT Hospital Encounter Surgical Unit Level 4 [place] [address] Lisette Maldonado MD Critical limb ischemia of left lower extremity; PAD (peripheral artery disease); Peripheral artery disease Discharge Disposition: Home with VNA 07/27/2024 Tele[place] [address] Lisette Maldonado MD Peer To Peer (Per 5 day protocol please be advised that prior auth is still pending review with the patient's insurance company. Will continue to update as more information returns) 07/24/2024 [place] [address] Fallon Lemus RN 07/20/2024 Travel 07/19/2024 8:57 AM EDT Anesthesia [place] [phone] Penny Mathias MD DinsdDiana caldwell Susanne 07/19/2024 8:45 AM EDT - 07/19/2024 10:21 AM EDT Surgery [place] [address] Pastora Garcia MD AMPUTATION TOE, METATARSO-PHALANGEAL JOINT (WRVU 3.51) 07/18/2024 5:26 PM EDT Anesthesia [place] [address] Jules Rivera MD Hawke, Aaron D, DO 07/14/2024 6:07 PM EDT - 07/21/2024 7:15 PM EDT Hospital Encounter Surgical Unit Level 4 [place] [address] Pastora Garcia MD Cellulitis of foot, left; Peripheral artery disease; Critical limb ischemia of left lower extremity Discharge Disposition: Home from Last 3 Months Immunizations Name Administration [...] attempted to quit: 12/28/2011 Smokeless Tobacco: Never Tobacco Cessation:Ready to Q uit: No; Counseling Given: Not Answered Alcohol Use Standard Drinks/Week Comments No 0 (1 standard drink = 0.6 oz pur e alcohol) [facility] Utilities Answer Date Recorded In the past 12 months has [employer], gas, oil, or water [employer] threatened to shut off services in your [...] any time in the past 12 m [facility], were you homeless or living in a senior care (including now)? No 08/02/2024 DH IPV Inpatient [...] Pulse 82 09/18/2024 11:23 AM EST Temperature 36.3 ??C (97.3 ??F) 08/03/2024 8:02 AM ED T Respiratory Rate 16 08/03/2024 8:02 AM EDT Oxygen Saturation 96% 09/18/2024 11:23 AM EST Inhaled Oxygen Concentration - - Weight 104.8 kg (231 lb) 09/18/2024 11:23 AM EST Height 179.1 cm (5' 10.5) 09/18/2024 11:[address] Body Mass Index 32.68 09/18/2024 11:23 AM EST Plan of Treatment Health Maintenance Due Date Last Done Comments CT Colonography 1974 Colonoscopy 1974 Colorectal Cancer Screening 1974 FIT DNA 1974 FIT 1974 Sigmoidoscopy (10 year) with FIT yearly 1974 Sigmoidoscopy 1974 Pneumococcal Vaccine: At-Ris k 5-64yrs (1 of 2 - PCV) 1980 DM Opthalmology Exam 1984 Hepatitis C Screening 1992 Hepatitis B vaccine (0-59 yr s) (1) 1993 Tetanus/Diphtheria/Pertussis Vaccines (1 - Tdap) 1993 DM Urine Microalbumin yearly 01/05/2013 01/06/2012 Zoster vaccine (1 of 2) 2024 Covid-19 Vaccine (1 - 2023-2 5 season) 2024 Influenza (Flu) vaccine (1 o f 1 - Influenza standard series) 07/09/2024 08/22/2013 DM Hemoglobin A1c 08/29/2024 05/29/2024, , 12/30/2011 DM Creatinine yearly 08/03/2025 08/03/2024, 08/02/2024, 07/21/2024, Additional history exists Lipid Screening Discontinued 07/18/2024, 05/09, 08/21/2013, Additional history exists HIV screen Completed 08/01/2024, 12/30/2011 Medical Devices Implanted Type Area Residential Mortgage Underwriter Device Identifier Shelf Expiration Date Model / Serial / Lot Cable,Sternal ([id number]) - [id number] Implanted:Qty : 1 on 01/04/2012 at [facility] IMPLANTS N/A: Chest [employer] - [id number] 09/03/2016 [id number] / [id number] / [id number] Cable,Sternal ,Single ([id number]) - [id number] Implanted:Qty : 1 on 01/04/2012 at [facility] IMPLANTS N/A: Chest [employer] - [id number] 09/03/2016 [id number] / [id number] / [id number] Graft Soft Tissue 0.8x8cm Square Bovine Xenosure ([id number]) (Autoreq) - [id number] Implanted:Qty : 1 on 08/01/2024 by Lisette Maldonado MD at [facility] IMPLANTS Left: Arterial [employer] - LEIMAITRE 01/05/2030 E0.8P8 / 0000 / [id number] Description:left femoral art wei Graft Vascular [id number] Straight Heparin Coated Thin Wall ([id number]) - [id number] Implanted:Qty : 1 on 08/01/2024 by Lisette Maldonado MD at [facility] IMPLANTS Left: Leg [employer] - [employer] AN [id number] 04/05/2027 [id number] / [id number] / Description:fem-tib (upper l eg to lower leg) vascular bypass graft Graft Bone Filler 20ml Calcium Sulfate Powder Injectable ([id number]) - [id number] Implanted:Qty : 1 on 08/01/2024 by Lisette Maldonado MD at [facility] IMPLANTS Left: Leg [employer] - BI[employer]I [id number] 01/05/2027 620-020 / / [id number] Description:mixed with 1 g v ancomycin Procedures Procedure Name Priority Date/Time Associated Diagnosis Comments UNILATERAL BYPASS GRAFT ASSESS Routine 08/28/2024 12:55 PM EDT Critical limb ischemia of left lower extremity POC, GLUCOSE Routine 08/03/2024 12:27 PM EDT POC, GLUCOSE Routine 08/03/2024 8:06 AM EDT PHOSPHORUS Routine 08/03/2024 4:41 AM EDT MAGNESIUM Routine 08/03/2024 4:41 AM EDT BASIC METABOLIC PANEL Routine 08/03/2024 4:41 AM EDT CBC (WITH DIFF) Routine 08/03/2024 4:41 AM EDT POC, GLUCOSE Routine 08/03/2024 3:58 AM EDT POC, GLUCOSE Routine 08/02/2024 11:06 PM EDT POC, GLUCOSE Routine 08/02/2024 7:46 PM EDT POC, GLUCOSE Routine 08/02/2024 5:17 PM EDT POC, GLUCOSE Routine 08/02/2024 12:44 PM EDT POC, GLUCOSE Routine 08/02/2024 7:43 AM EDT PHOSPHORUS Routine 08/02/2024 3:49 AM EDT MAGNESIUM Routine 08/02/2024 3:49 AM EDT BASIC METABOLIC PANEL Routine 08/02/2024 3:49 AM EDT CBC (WITH DIFF) Routine 08/02/2024 3:49 AM EDT POC, GLUCOSE Routine 08/02/2024 3:08 AM EDT POC, GLUCOSE Routine 08/02/2024 12:07 AM EDT POC, GLUCOSE Routine 08/01/2024 7:52 PM EDT POC, GLUCOSE Routine 08/01/2024 4:28 PM EDT SCAN DOC: TELEMETRY STRIPS 08/01/2024 11:46 AM EDT POC, GLUCOSE Routine 08/01/2024 11:26 AM EDT POC, GLUCOSE Routine 08/01/2024 10:17 AM EDT BLOOD GAS ARTERIAL POC Routine 08/01/2024 8:04 AM EDT Bypass Graft Othr, Fem-Tibial ([id number]) 08/01/2024 7:34 AM EDT CLTI POC, GLUCOSE Routine 08/01/2024 6:23 AM EDT BYPASS GRAFT, FEM-ANT TIBIAL, -POST TIBIAL, -PERONEAL, -DP W\ SYNTHETIC CONDUIT Routine 08/01/2024 6:03 AM EDT IMPLANTABLE DEVICES SCAN 08/01/2024 12:00 AM EDT POC, GLUCOSE Routine 07/21/2024 3:43 PM EDT [...] VASCULAR SURGERY Routine 07/20/2024 10:41 AM EDT POC, GLUCOSE Routine 07/20/2024 8:12 AM EDT [...] 11:24 AM EDT ANAEROBIC CULTURE STAT 07/19/2024 9:5 1 AM EDT BONE CULTURE STAT 07/19/2024 9:51 AM EDT BONE CULTURE, AEROBIC & ANAEROBIC STAT 07/19/2024 9:51 AM EDT AFB CULTURE STAT 07/19/2024 9:51 AM EDT FUNGUS CULTURE STAT 07/19/2024 9:51 AM EDT SURGICAL PATHOLOGY Routine 07/19/2024 9: 49 AM EDT Amputation Toe, Mt-P Jt ([id number]) 07/19/2024 8:57 AM EDT peripheral artery disease [...] 4:41 PM EDT VANCOMYCIN, TROUGH Timed 07/15/2024 2: 19 PM EDT POC, GLUCOSE Routine 07/15/2024 1:16 [...] (WITH DIFF) STAT 07/14/2024 7:39 PM EDT HEMOGLOBIN A1C Routine 05/29/2024 2:13 AM EDT U ALBUMIN/CRE RATIO Timed 01/06/2012 9 :03 PM EST from Last 3 Months or Most Recently Relevant to Health Maintenance Results * Unilat Bypass Graft Assess (08/28/2024 12:55 PM EDT) VB Text Report Department: Vascular Surgery Lab Patient: [id number] (GEOVANNA DIXON) CPT: 22714 Referring Physician: HERMILA SNIDER ?? Phone: Indications: s/p left iliofemoral endarterectomy and left femoral to below-knee popliteal artery bypass with 7 mm ringed PTFE Findings: Left ?PSV (cm/s) ??EDV ?? Common Femoral Artery, Mid ? 173 ?? 18 ?? Popliteal Artery, Below Knee ? 105 ?? 10 ?? Left Fem-Pop BK SEGMENT ?PSV (cm/s) ??EDV ??Location ? Left Inflow Artery (Graft) ?173 ?? 18 ??Common Femoral, Left ? Inflow Anastomosis, Left ? 78 ?0 ??Common Femoral, Left ? Left Proximal Graft ?55 ?0 ? Left High Thigh (Graft) ?61 ?0 ? Left Mid Thigh (Graft) ? 60 ?0 ? Left Low Thigh (Graft) ? 53 ?1 ? Left Near Knee (Graft) ? 54 ?0 ? Left Distal Graft ?43 ?3 ? Outflow Anastomosis, Left ?82 ?9 ??Popliteal, Below Knee Left ?? Left Outflow Artery (Graft) ? 105 ?? 10 ??Popliteal, Below Knee Left ?? Interpretation: Left- Widely patent fem-bk pop bypass graft with no evidence of stenosis. Comparison: ??No previous study in our vascular lab database for comparison. Electronically Signed by: KIMBERLI DICKSON on 2024-08-28 02:36:03 PM [facility] VB Text Report End of Report [facility] 08/28/2024 12:5 5 PM EDT Hermila White APRN VASCULAR ORDERABLE S [facility] * POC, GLUCOSE (08/03/2024 12:27 PM EDT) Only the most recent of62 resultswithin the time period is included. Glucometer, POC 81 65 - 199 mg/dL 08/03/2024 12:27 PM EDT [facility] Comment:Supplemental ranges: <140 mg/dL before meals <180 mg/dL all other times of the day. Blood CAPILLARY BLOOD / Unknown 08/03/2024 12:27 PM EDT 08/03/2024 12:27 PM EDT Lisette Maldonado MD POINT OF CARE TEST ORDERABLES [facility] [place] [address] * (ABNORMAL) CBC (with Diff) (08/03/2024 4:41 AM EDT) Only the most recent of10 resultswithin the time period is included. White Blood Cell 10.74(H) 4.00 - 9.50 x10(3)/mc L 08/03/2024 4:57 AM EDT [facility] Red Blood Cell 4.23(L) 4.58 - 5.54 x10(6)/mc L 08/03/2024 4:57 AM EDT [facility] Hemoglobin 12.5(L) 13.7 - 16.5 g/dL 08/03/2024 4:57 AM T [facility] Hematocrit 38.5(L) 40.5 - 48.5 % 08/03/2024 4:57 AM EDT [facility] Mean Cell Volume 91.0 82.9 - 93.1 fL 08/03/2024 4:57 AM EDT [facility] Mean Cell Hemoglobin 29.6 27.5 - 32.1 pg 08/03/2024 4:57 AM EDT [facility] Mean Cell Hemoglobin Concentration 32.5 32.0 - 35.7 g/dL 08/03/2024 4:57 AM EDT [facility] Platelet 309 145 - 357 x10(3)/mc L 08/03/2024 4:57 AM EDT [facility] Mean Platelet Volume 9.7 7.6 - 12.9 fL 08/03/2024 4:[facility] Standard Deviation 44.0 36.0 - 45.0 fL 08/03/2024 4:57 AM [facility] RDW coefficient of variation 13.3 11.4 - 13.8 % 08/03/2024 4:57 AM [facility] NRBC% auto 0.0 % 08/03/2024 4:57 AM [facility] NRBC Absolute <0.01 <0.01 x10(3)/mc L 08/03/2024 4:57 AM [facility] Neutrophil % 71.7 % 08/03/2024 4:57 AM [facility] Neutrophil Absolute (ANC) - Automated 7.71(H) 1.70 - 6.10 x10(3)/mc L 08/03/2024 4:57 AM [facility] Lymph % 18.5 % 08/03/2024 4:57 AM [facility] Lymph Absolute 1.99 0.90 - 3.20 x10(3)/mc L 08/03/2024 4:57 AM [facility] Monocyte % 7.2 % 08/03/2024 4:57 AM [facility] Monocyte Absolute 0.77 0.30 - 0.90 x10(3)/mc L 08/03/2024 4:57 AM [facility] Eos % 1.5 % 08/03/2024 4:57 AM [facility] Eos Absolute 0.16 0.00 - 0.40 x10(3)/mc L 08/03/2024 4:57 AM [facility] Basophil % 0.6 % 08/03/2024 4:57 AM [facility] Baso Absolute 0.06 0.00 - 0.10 x10(3)/mc L 08/03/2024 4:57 AM [facility] Immature Gran % 0.5 % 4:57 AM [facility] Immature Gran Absolute 0.05(H) 0.00 - 0.04 x10(3)/mc L 08/03/2024 4:57 AM EDT [facility] Blood VENOUS BLOOD SPECIMEN / Unknown IP Care Team Draw / Unknown 08/03/2024 4:41 AM EDT 08/03/2024 4:51 AM EDT Lisette Maldonado MD HEMATOLOGY ORDERAB LES Performing Organization Address City/[facility]/ZIP Co de Phone Number [facility] [place] [address] * Phosphorus (08/03/2024 4:41 AM EDT) Only the most recent of8 resultswithin the time period is included. Phosphorus 3.4 2.5 - 4.5 mg/dL 08/03/2024 5:22 AM EDT [facility] Blood VENOUS BLOOD SPECIMEN / Unknown IP Care Team Draw / Unknown 08/03/2024 4:41 AM EDT 08/03/2024 4:51 AM EDT Lisette Maldonado MD CHEMISTRY ORDERABL ES Performing Organization Address [facility] Co de Phone Number [facility] [place] [address] * Magnesium (08/03/2024 4:41 AM EDT) Only the most recent of8 resultswithin the time period is included. Magnesium 0.81 0.69 - 1.07 mMol/L 08/03/2024 5:22 AM EDT [facility] Blood VENOUS BLOOD SPECIMEN / Unknown IP Care Team Draw / Unknown 08/03/2024 4:41 AM EDT 08/03/2024 4:51 AM EDT Lisette Maldonado MD CHEMISTRY ORDERABL ES Performing Organization Address City/[facility]/ZIP Co de Phone Number [facility] [place] [address] * (ABNORMAL) Basic Metabolic Panel (08/03/2024 4:41 AM EDT) Only the most recent of10 resultswithin the time period is included. Glucose 179 65 - 199 mg/dL 08/03/2024 6:51 AM [facility] Comment:Glucose Concentratio n >=200 mg/dL plus symptoms is consistent with Diabetes Mellitus. Blood Urea Nitrogen 10 10 - 20 mg/dL 08/03/2024 6:51 AM [facility] Creatinine 0.50(L) 0.80 - 1.50 mg/dL 08/03/2024 6:51 AM [facility] Sodium 135 135 - 145 mMol/L 08/03/2024 6:51 AM [facility] Potassium 3.9 3.5 - 5.0 mMol/L 08/03/2024 6:51 AM [facility] Chloride 100 98 - 107 mMol/L 08/03/2024 6:51 AM [facility] Carbon Dioxide 26 22 - 31 mMol/L 08/03/2024 6:51 AM [facility] Anion Gap 9 5 - 15 mMol/L 08/03/2024 6:51 AM [facility] Calcium 9.6 8.5 - 10.5 mg/dL 08/03/2024 6:51 AM [facility] Est Glomerular Filtration Rate - Male 124 mL/min/1. 73 m?? 08/03/2024 6:51 AM [facility] Comment: This patient's estimated GFR [...] Unknown IP Care Team Draw / Unknown 08/03/2024 4:41 AM EDT 08/03/2024 4:51 AM EDT Lisette Maldonado MD CHEMISTRY ORDERABL ES [facility] [place] [address] * Scan Doc: Telemetry Strips (08/01/2024 11:46 AM EDT) Narrative 08/01/2024 11:46 AM EDT Ordered by an unspecified provider. Scanning Provider MEDIA MGR SCAN EXT O RDR/RSLT * (ABNORMAL) Blood Gas, Arterial POC (08/01/2024 8:04 AM EDT) pH, Arterial 7.36 7.35 - 7.45 08/01/2024 9:26 AM EDT [facility] PCO2, Arterial 43 35 - 45 mmHg 08/01/2024 9:26 AM EDT [facility] PO2, Arterial 211(H) 85 - 104 mmHg 08/01/2024 9:26 AM EDT [facility] Bicarbonate, Arterial 23.5 20.0 - 26.0 mmol/L 08/01/2024 9:26 AM EDT [facility] Base Excess, Arterial -2.1 -3.0 - 3.0 mmol/L 08/01/2024 9:26 AM EDT [facility] Hemoglobin, Arterial 12.9(L) 13.7 - 16.5 g/dL 08/01/2024 9:26 AM EDT [facility] Oxyhemoglobin, Arterial 96.6 94.0 - 97.0 % 08/01/2024 9:26 AM EDT [facility] Carboxyhemoglobin , Arterial 2.3 % 08/01/2024 9:26 AM EDT [facility] Comment: Nonsmokers: 0.5-1.5% COHB ?? Smokers: Variable ??but usually less than 10% ?? Toxic: 20-30% COHB ?? Lethal: Greater than 60% COHB Methemoglobin, Arterial 0.2 <=1.5 % 08/01/2024 9:26 AM EDT [facility] Sodium, Arterial 137 135 - 145 mmol/L 08/01/2024 9:26 AM EDT [facility] Potassium, Arterial 3.8 3.5 - 5.0 mmol/L 08/01/2024 9:26 AM EDT [facility] Chloride, Arterial 105 98 - 107 mmol/L 08/01/2024 9:26 AM EDT [facility] Lactate, Arterial 2.1 0.5 - 2.2 mmol/L 08/01/2024 9:26 AM EDT [facility] IONIZED CALCIUM, ARTERIAL 1.15 1.15 - 1.33 mmol/L 08/01/2024 9:26 AM EDT [facility] Glucose, Arterial 164 65 - 199 mg/dL 08/01/2024 9:26 AM EDT [facility] Comment:Glucose Concentratio n >=200 mg/dL plus symptoms is consistent with Diabetes Mellitus. Blood ARTERIAL BLOOD / Unknown 08/01/2024 8:04 AM EDT 08/01/2024 9:26 AM EDT Lisette Maldonado MD POINT OF CARE TEST ORDERABLES [facility] [place] [address] * Scan Doc: Implantable Devices (08/01/2024 12:00 AM EDT) Narrative 08/01/2024 12:00 AM EDT Ordered by an unspecified provider. Scanning Provider MEDIA MGR SCAN EXT O RDR/RSLT * Vein Map Arm, Bilateral (07/20/2024 10:48 AM EDT) VB Text Report Department: Vascular Surgery Lab Patient: [id number] (GEOVANNA DIXON) CPT: 90367 Referring Physician: PASTORA GARCIA ?? Indications: Patient [...] Pastora Garcia MD VASCULAR ORDERABLES [facility] * VS Arteriogram Lower Extremity Vascular Surgery (07/20/2024 10:41 AM EDT) Anatomical Region Laterality Modality X-Ray Angiograph y Narrative 07/31/2024 10:06 AM EDT Vascular Surgery Procedure Note Name: Geovanna Dixon Jr. : 1975 Pre-procedure Dx: LLE CLTI Post-procedure Dx: Same Procedure: 1. Right femoral arterial access 2. Selective catheterization of left common iliac artery, external iliac artery 3. Left lower extremity angiogram 4. Mynx closure Surgeons: Anabel Finney MD - vascular surgeon Dolly Dan MD - vascular surgery resident Anesthesia: Conscious sedation, local 6 cc 1% lidocaine Medications: Fentanyl: 100 mcg ?? Versed: 2 mg Antibiotics: 2 gm Ancef [...] patient has been previously admitted to the [facility] Vascular Surgery service on 05/28 - 06/02 [...] Left SFA with mild proximal stenosis and focal irregularity around Brad's canal. Profunda patent with mild stenosis proximal to first branch point. Short segment occlusion of above knee popliteal artery with reconstitution of below knee popliteal artery from collateral filling from AT. PT and AT appear patent with minimal disease, fills to foot. - Closure device: Mynx Technical Procedure: ?? The patient was correctly identified in the pre-procedure holding area. ?? After a discussion of the risks and benefits, operative consent was obtained. ??The patient was brought to the angio suite and placed supine upon the angio table. The patient was prepped and draped in the usual sterile fashion. A time-out was performed by the attending surgeon. Retrograde percutaneous access was obtained in the right common femoral artery via micropuncture technique under ultrasound and flouroscopic guidance after infiltration with local anesthetic. This was then up-sized to a 10 cm 5F sheath over a J-wire. The wire was advanced into the infra-renal aorta. A 5F omni-flush catheter was advanced into the infrarenal aorta over the wire. The wire and catheter were then used to selectively catheterize the left common iliac artery. The wire and catheter were advanced down to the common femoral artery. The left lower extremity was then imaged in stations. ??Findings are as described above. The sheath was removed with the assistance of a Mynx closure device and manual pressure was held over the puncture site for 10 minutes. Hemostasis was satisfactory. The puncture site was dressed with a dry gauze and tegaderm. Dr. Finney, the attending surgeon, was scrubbed and present for the entire procedure. ??Due to the painful nature of the procedure, split doses of fentanyl and Versed were administered by the IR nurse during continuous monitoring of pulse, blood pressure and oxygen saturation. Closure method: Mynx Complications: None apparent Disposition: To recovery, flat for 2 hours Attending Attestation I was the attending physician supervising the resident/fellow in the above care and I was present with the resident/fellow for the entire procedure. I was present during the intraservice time as documented by the sedation RN. Anabel Finney MD, MPH [facility] Vascular Surgery ? Pastora Garcia MD IMG IR ORDERABLES * Anaerobic Culture (07/19/2024 9:51 AM EDT) Anaerobic Culture No anaerobic organisms isolated 07/23/2024 3:24 PM EDT [facility] Bone STRUCTURE OF TOE OF LEFT FOOT / Unknown 07/19/2024 9:51 AM EDT Comment:PERIPHERAL ARTERY DI SEASE Pastora Garcia MD MICROBIOLOGY - GENER AL ORDERABLES Performing Organization Address [facility] Co de Phone Number [facility] [place] [address] * Bone Culture (07/19/2024 9:51 AM EDT) Bone Culture No growth 07/23/2024 12:36 PM EDT [facility] Gram Stain No neutrophils seen 07/23/2024 12:36 PM EDT [facility] Gram Stain No microorganisms seen 07/23/2024 12:36 PM EDT [facility] Bone STRUCTURE OF TOE OF LEFT FOOT / Unknown 07/19/2024 9:51 AM EDT Comment:PERIPHERAL ARTERY DI SEASE Pastora Garcia MD MICROBIOLOGY - GENER AL ORDERABLES Performing Organization Address [facility] Co de Phone Number [facility] [place] [address] * AFB culture (07/19/2024 9:51 AM EDT) Acid Fast Bacilli Culture No acid fast bacilli isolated at 8 weeks. 09/13/2024 11:02 AM EST [facility] Bone STRUCTURE OF TOE OF LEFT FOOT / Unknown 07/19/2024 9:51 AM EDT 07/19/2024 10:08 AM EDT Comment:PERIPHERAL ARTERY DI SEASE Pastora Garcia MD MICROBIOLOGY - GENER AL ORDERABLES Performing Organization Address [facility] Co de Phone Number [facility] [place] [address] * Fungus culture (07/19/2024 9:51 AM EDT) Fungus Culture No fungus isolated 08/22/2024 9:08 AM EDT [facility] Bone STRUCTURE OF TOE OF LEFT FOOT / Unknown 07/19/2024 9:51 AM EDT 07/19/2024 10:08 AM EDT Comment:PERIPHERAL ARTERY DI SEASE Pastora Garcia MD MICROBIOLOGY - GENER AL ORDERABLES [facility] [address] * Surgical Pathology (07/19/2024 9:49 AM EDT) Case Report Surgical Pathology Report ? Case: [id number] ? Authorizing Provider: ??Pastora Garcia MD ?Collected: ? 07/19/2024 0949 ? Ordering Location: ? Main Operating Room [facility] ?? Received: ?07/19/2024 1009 ? [facility] ? Pathologist: ? Benjamin Shen MD ? Specimen: ?Toe(s), Left Foot, LEFT 2ND TOE (PERM) ? 07/26/2024 1:24 PM EDT [facility] Final Diagnosis A - Left second toe; amputated through the proximal phalanx: - Gangrenous necrosis; amputation margin appears uninvolved. - Largely detached nail. 07/26/2024 1:24 PM EDT [facility] Clinical Information PROVIDED: PERIPHERAL ARTERY DISEASE. 07/26/2024 1:24 PM EDT [facility] Gross Description A. Toe(s), Left Foot, LEFT 2ND TOE (PERM). A - Labeled/Fixative : Left second toe, fresh. Quantity/Size: Single, 4.3 cm in length by 2.4 cm in diameter Tissue Description: Digit amputation with a resected end through the proximal phalanx. Lesion: No lesion grossly identified. Nail: Present (1.6 x 1.3 x 0.4 cm) maynard-purple, thickened and mostly detached. Skin: There is maynard-purple, dusky discoloration surrounding the nail at the distal aspect of the digit occupying an area measuring 2.3 x 2.2 cm, coming within 1.8 cm of the nearest skin and soft tissue resection margin. Bone: The distal phalanx is maynard-pink with small cavitary spaces ranging from <0.1 to 0.2 cm in greatest dimension, observed. Sections/Process ing: Blocks submitted for decalcification: A1-A2. Escapement Matcher sections in 2 cassettes as follows: A1-A2: Complete longitudinal section of digit cmk 07/26/2024 1:24 PM EDT [facility] Result Note Routine 07/26/2024 1:24 PM T [facility] Tissue STRUCTURE OF TOE OF LEFT FOOT / Unknown 07/19/2024 9:49 AM EDT 07/19/2024 10:09 AM EDT Comment:PERIPHERAL ARTERY DI SEASE Pastora Garcia MD PATHOLOGY/CYTOLOGY O RDERABLES Performing Organization Address [facility] Co de Phone Number [facility] [address] * Heparin (unfractionated) Level (07/19/2024 6:29 AM EDT) Only the most recent of7 resultswithin the time period is included. UF Heparin 0.42 IU/mL 07/19/2024 6:44 AM EDT [facility] Comment: Heparin (anti-Xa) levels should [...] EDT Pastora Garcia MD HEMATOLOGY ORDERABLE S Performing Organization Address [facility]/ZIP Co de Phone Number [facility] [place] [address] * Vancomycin Level, Random (07/18/2024 8:01 AM EDT) Vancomycin, Random 17.2 mg/L 2023 9:40 AM EDT [facility] Comment:This level is for de termination of the patient's vancomycin jyti-mdeuf-hjy-curve (AUC) value. Contact the inpatient pharmacy for interpretation. Blood VENOUS BLOOD SPECIMEN / Unknown IP Care Team Draw / Unknown 07/18/2024 8:01 AM EDT 07/18/2024 8:39 AM EDT Pastora Garcia MD CHEMISTRY ORDERABLES Performing Organization Address [facility] Co de Phone Number [facility] [address] * LDL Cholesterol, Direct (07/18/2024 3:33 AM EDT) LDL Cholesterol, Direct 65 mg/dL 07/18/2024 4:50 AM EDT [facility] Comment: Desirable: <100 mg/dL Above [...] Garcia MD CHEMISTRY ORDERABLES Performing Organization Address [facility] Co de Phone Number [facility] [address] * HDL/Cholesterol Profile (07/18/2024 3:33 AM EDT) Cholesterol, Total 114 mg/dL 07/18/2024 4:50 AM EDT [facility] Comment: Desirable: < 200 mg/dL Borderline High: 200 - 239 mg/dL High: > or = 240 mg/dL HDL Cholesterol 38 mg/dL 4:50 AM T [facility] Comment:Males: High Risk: <4 0 mg/dL Non-HDL Cholesterol 76 mg/dL 07/18/2024 4:50 AM EDT [facility] Comment: Desirable: <130 mg/dL Above Desirable: 130-159 mg/dL Borderline High: 160-189 mg/dL High: 190-219 mg/dL Very High: > or = 220 mg/dL Blood VENOUS BLOOD SPECIMEN / Unknown IP Care Team Draw / Unknown 07/18/2024 3:33 AM EDT 07/18/2024 4:21 AM EDT [facility] - 07/18/2024 4:50 AM [...] ACC/AHA Guidelines (most recently Johann et al. [facility] 08/11/22): * For individuals with atherosclerotic cardiovascular [...] artery disease) Pastora Garcia MD CHEMISTRY ORDERABLES [facility] [place] [phone] * ELEN, legs, multiple levels (07/17/2024 6:31 AM EDT) VB Text Report Department: Vascular Surgery Lab Patient: [id number] (GEOVANNA DIXON) CPT: 79591 Referring Physician: VIBHA TIERNEY ?? Indications: PAD [...] ? Dorsalis Pedis (Ankle) Artery ?83 ?0.55 ??Crockett-Biphasic ? Posterior Tibial (Ankle) Artery ??87 ?0.57 [...] of2 resultswithin the time period is included. Pathologist [facility] Potassium 3.9 3.5 - 5.0 mMol/L 07/16/2024 4:15 PM EDT [facility] Blood VENOUS BLOOD SPECIMEN / Unknown IP Care Team Draw / Unknown 07/16/2024 3:39 PM EDT 07/16/2024 3:47 PM EDT Hermila White APRN CHEMISTRY ORDERABL ES [facility] [place] [address] * MRSA PCR Screen (07/16/2024 2:07 PM EDT) Pathologist [facility] MRSA PCR Not Detected 07/17/2024 6:04 PM EDT [facility] Swab BOTH ANTERIOR NARES / Unknown Non Blood Collection / Unknown 07/16/2024 2:07 PM EDT 07/16/2024 2:13 PM EDT Narrative [facility] - 07/17/2024 6:04 PM EDT This test was performed using the Xpert MRSA NxG test kit and is run on the [employer] GeneXpert Dx System. This test is cleared by the U.S. Food and Drug Administration for clinical use and its performance characteristics have been verified by the [employer] [facility] at [facility]. This test was performed using the Xpert MRSA NxG test kit and is run on the [employer] GeneXpert Dx System. This test is cleared by the U.S. Food and Drug Administration for clinical use and its performance characteristics have been verified by the [employer] [facility] [employer] [facility] at [facility]. Hremila White APRN MOLECULAR ORDERABL ES Performing Organization Address City/[facility]/ZIP Co de Phone Number [facility] [place] [address] * (ABNORMAL) Vancomycin, trough (07/15/2024 2:19 PM EDT) [facility] Vancomycin, Trough 9.7(L) 10.0 - 20.0 mg/L 07/15/2024 3:28 PM EDT [facility] Comment: Varies according to infection source. Blood VENOUS BLOOD SPECIMEN / Unknown IP Care Team Draw / Unknown 07/15/2024 2:19 PM EDT 07/15/2024 3:00 PM EDT Pastora Garcia MD CHEMISTRY ORDERABLES Performing Organization Address City/[facility]/ZIP Co de Phone Number [facility] [address] * CT Angiogram Aortic Lower Extremity Runoff (07/14/2024 11:57 PM EDT) [facility] Signature WORKSTATION ID [id number] DH RAD Anatomical Region Laterality Modality Abdomen [...] who have questions please contact the health pet caregiver that requested your imaging first. ? Electronically signed by: Geovanna Ray MD, [facility] ??([phone]), at 07/15/2024 1:13 AM Narrative 07/15/2024 1:13 [...] 2.6 cm vessel length at and just axdfu-ebj-yruc, similar to prior. Anterior tibial artery: No [...] the intravenous administration of contrast. 149 cc [id number]. Maximum intensity projection (MIP) were reformatted. 3-D [...] 2.6 cm vessel length at and just tvooc-snt-ewij, similar toprior. Anterior tibial artery: No stenosis. [...] patients who have questions please contactthe health pet caregiver that requested your imaging first. Electronically signed by: Geovanna Ray MD, [facility]([phone]), at 07/15/2024 1:13 AM Pastora Garcia MD IMG CT ORDERABLES * XR Foot Min 3 views Left (Generic) (07/14/2024 9:11 PM EDT) WORKSTATION ID [id number] RAD Anatomical Region Laterality Modality Foot Left [...] who have questions please contact the health pet caregiver that requested your imaging first. ? Electronically signed by: Geovanna Ray MD, [facility] ??([phone]), at 07/14/2024 10:26 PM Narrative 07/14/2024 10:26 [...] patients who have questions please contactthe health pet caregiver that requested your imaging first. Electronically signed by: Geovanna Ray MD, [facility]([phone]), at 07/14/2024 10:26 PM Arthur Patel DO IMG DX ORDERABLES * Lactate Whole Blood POC (07/14/2024 7:41 PM EDT) Lactate, Whole Blood 1.1 0.5 - 2.2 mmol/L 07/14/2024 7:42 PM EDT [facility] Blood ARTERIAL BLOOD / Unknown 07/14/2024 7:41 PM EDT 07/14/2024 7:42 PM EDT Unknown POINT OF CARE TEST O RDERABLES [facility] [place] [address] * (ABNORMAL) Hemoglobin A1c (05/29/2024 2:13 AM EDT) Hemoglobin A1c 12.6(H) 4.3 - 5.6 % [facility] Comment: Reference Range: 4.3 - [...] Mellitus, Diabetes Care 2013; 36: Suppl. 1, S67-68 Estimated Average Glucose 316 mg/dL [facility] Blood 05/29/2024 2:13 AM EDT 05/29/2024 8:03 AM EDT Narrative Resulting Agency Comment Spec In Lab Jerry Marin MD CHEMISTRY ORDERABLES Performing Organization Address [facility] Co de Phone Number [facility] [place] [address] * Microalbumin, urine, random (01/06/2012 9:03 PM EST) Creatinine, Urine 136 mg/dL CE RNER MILLENNIUM Albumin, Urine 14.4 mg/L CERNE R MILLENNIUM Albumin / Creatinin Ratio, Urine 11 mcg/mg Cr CERNER MILLENNIUM Comment: Reference Range* Random collection (mcg/mg creatinine) Normal ?<30 Microalbuminuria ?? 30 - 300 Clinical Albuminuria ?? >300 *[place] [employer]. Diabetic Nephropathy. Diabetes Care 1997;(Suppl 1):S24-S27 Exercise within 24 hour, infection, fever, CHF, marked hyperglycemia, and marked hypertension may elevate urinary albumin excretion over baseline values. Urine specimen (specimen) 01/06/2012 9:03 PM EST 01/06/2012 10:28 PM EST Narrative Resulting Agency Comment Spec In Lab Alfonso Morales MD URINE ORDERABLES Performing Organization Address [facility] Co de Phone Number ARIAN CAENNIUM from Last 3 Months or Most Recently Relevant to Health Maintenance Advance Directives * Attempt Cardiopulmonary Resuscitation - Inpatient (Latest Code Status on File) Date Activated Date Inactivated Comments 08/01/2024 11:36 AM 08/03/2024 6:45 PM Question Answer Comments Code Status decision made by: Patient Content of discussion: Patient wants to live * Attempt Cardiopulmonary Resuscitation - Inpatient Date Activated Date Inactivated Comments 07/14/2024 9:58 [...] is based on Patients wishes. Care Teams Lining Repairer Relationship Specialty Start Date End Date Charles Romero [place] [address] PCP - General Internal Medicine 09/18/24
--- OUTSIDE RECORDS SUMMARY | 2024-09-20 08:20 | XMS_ITS | Encounter Summary ---
Author Organization [facility] Address [facility] [place] [address] Care Team Providers Care Water Main Installer Helper Name Role Phone None Primary Care Provider Unavailabl e Encounter Details Date Type Department Care Team (Late st Contact Info) Description 09/06/2024 Notes Only Vascular Surgery at [facility] [place] [address] Fallon Lemus RN Social History Tobacco Use Types Packs/Day Years Used Date Smoking Tobacco: Every Day Cigarettes 1 25 Started: 12/28/1986; Last attempted to quit: 12/28/2011 Smokeless Tobacco: Never Alcohol Use Standard Drinks/Week Comments No 0 (1 standard drink = 0.6 oz pur e alcohol) [facility] Utilities Answer Date Recorded In [...] were you homeless or living in a custodial (including now)? No 08/02/2024 DH IPV Inpatient [...] as of this encounter Progress Notes * Fallon Lemus RN - 09/06/2024 2:44 PM EDT Spoke with Dr. Dicksno regarding the earlier call from [place]. Wound dressing should be as follows: Daily: [place] 1st and 5th toe with Betadine [place] 2nd to amp site with Betadine Cover amp site wound with band-aid Wrap leg with candice wrap Patient to continue wearing off loading shoe until wound completely healed. Spoke with Lux's mother and advised that a new off-loading shoe would be sent to them. This note will be routed to [facility] DAVID Viveroscorporate [facility] documented in this encounter Plan of Treatment Not on file documented as of this encounter Visit Diagnoses Not on filedocumented in this encounter Care Teams Water Main Installer Helper Relationship Specialty Start Date End Date None None PCP - General 05/27/24 09/17/24 documented as of this encounter
--- OUTSIDE RECORDS SUMMARY | 2024-09-20 08:21 | XMS_ITS | Encounter Summary ---
Author Organization [place] [address] Care Team Providers Care Keno Manager Name Role Phone None Primary Care Provider Unavailabl e Encounter Details Date Type Department Care Team (Latest Contact Info) Description 08/28/2024 Travel Social History Tobacco Use Types Packs/Day Years Used Date Smoking Tobacco: Every Day Cigarettes 1 25 Started: 12/28/1986; Last attempted to quit: 12/28/2011 Smokeless Tobacco: Never Alcohol Use Standard Drinks/Week Comments No 0 (1 standard drink = 0.6 oz pur e alcohol) [facility] Utilities Answer Date Recorded In [...] in the past 12 m [facility], were you homeless or living in a retirement (including now)? No 08/02/2024 DH IPV Inpatient [...] on filedocumented in this encounter Care Teams Keno Manager Relationship Specialty Start Date End Date None None PCP - General 05/27/24 09/17/24 documented as of this encounter
--- OUTSIDE RECORDS SUMMARY | 2024-09-20 08:21 | XMS_ITS | Encounter Summary ---
Author Organization [facility] Address [facility] [place] [address] Care Team Providers Care Airport Maintenance Chief Name Role Phone None Primary Care Provider Unavailabl e Encounter Details Date Type Department Care Team (Late st Contact Info) Description 08/28/2024 1:00 PM EDT Tech [place] [id number] Erick Jama [place] Critical limb ischemia of left lower extremity Social History Tobacco Use Types Packs/Day Years [...] were you homeless or living in a [place] facility (including now)? No 08/02/2024 DH IPV Inpatient [...] left lower extremity documented in this encounter Results * Unilat Bypass Graft Assess (08/28/2024 12:55 PM EDT) VB Text Report Department: Vascular Surgery Lab Patient: [id number] (GEOVANNA ARAYA) CPT: 11062 Referring Physician: DAGO SNIDER ?? Phone: Indications: s/p left iliofemoral [...] database for comparison. Electronically Signed by: KIMBERLI PETERSON on 2024-08-28 02:36:03 PM [facility] VB Text Report End of Report [facility] 08/28/2024 12:5 5 PM EDT Dago White OBSERVATION ASSISTANT VASCULAR ORDERABLE S [facility] documented in this encounter Visit Diagnoses Diagnosis Critical limb ischemia of left lower extremity documented in this encounter Care Teams Airport Maintenance Chief Relationship Specialty Start Date End Date None None PCP - General 05/27/24 09/17/24 documented as of this encounter
--- OUTSIDE RECORDS SUMMARY | 2024-09-20 08:21 | XMS_ITS | Encounter Summary ---
Author Organization Counts Include [facility] Address [facility] [place] [address] Care Team Providers Care Middle Stitcher Name Role Phone None Primary Care Provider Unavailabl e Encounter Details Date Type Department Care Team (Late st Contact Info) Description 07/24/2024 Telephone Vascular Surgery at [facility] [place] [phone] Fallon Lemus RN Social History Tobacco Use Types Packs/Day Years Used Date Smoking Tobacco: Every Day Cigarettes 1 25 Started: 12/28/1986; Last attempted to quit: 12/28/2011 Alcohol Use Standard Drinks/Week Comments No 0 (1 standard drink = 0.6 oz pur e alcohol) [facility] Utilities Answer Date Recorded In the [...] in the past 12 m [facility], were you homeless or living in a custodial (including now)? No 07/17/2024 DH IPV Inpatient [...] on filedocumented in this encounter Care Teams Middle Stitcher Relationship Specialty Start Date End Date None None PCP - General 05/27/24 09/17/24 documented as of this encounter
--- OUTSIDE RECORDS SUMMARY | 2024-09-20 08:21 | XMS_ITS | Encounter Summary ---
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 (Revascularization) Goal: Acceptable Pain Control Outcome: Ongoing (Interventions Implemented as Appropriate) Intervention: Prevent or Manage Pain Flowsheets Taken 08/02/20241945 Diversional Activities: television smartphone Taken 08/01/20242126 Pain Management Interventions: [id number] dosing utilized care clustered pain management plan reviewed with patient/caregiver pillow support provided position adjusted prescribed exercises encouraged quiet environment facilitated Problem: Tissue Perfusion Altered (Revascularization) Goal: Effective Tissue Perfusion Outcome: Ongoing (Interventions Implemented as Appropriate) Intervention: Optimize Tissue Perfusion Flowsheets (Taken 08/02/20241945) Body Position: weight shifting Problem: Diabetes Comorbidity Goal: Blood Glucose Level Within Targeted Range Outcome: Ongoing (Interventions Implemented as Appropriate) Intervention: Monitor and Manage Glycemia Flowsheets (Taken 08/02/20241945) Glycemic Management: blood glucose monitored Problem: Hypertension Comorbidity Goal: Blood Pressure in Desired Range Outcome: Ongoing (Interventions Implemented as Appropriate) Intervention: Maintain Blood Pressure Management Flowsheets (Taken 08/02/20241945) Medication Review/Management: medications reviewed Syncope Management: position changed slowly * Consult Note - Roxane Zhu MSW - 08/02/2024 11:59 AM EDT Social Work Response to Consult Consult: Nursing consult to Social Work Ordered at: 08/01/24 6395 Reason for Consult: Substance / alcohol abuse Reason for Consult? Patient has scored positive for Audit or DAST assessments Reason for Consult Substance / alcohol abuse Additional information Admitted to cocaine use Social Work Response: LAW WRITER reviewed chart. DAST score of 3. CONTROL SYSTEMS DESIGNER to see for DAST. However, LAW WRITER gave pt Consumer???s Guide for Substance Use Treatment in the [facility]. Pt refuses tx but accepted booklet to read. Follow Up Needed: Nothing further regarding this consult as CONTROL SYSTEMS DESIGNER will see pt due to DAST score. DENISSE Olivo * Care Management - Roxane Zhu MSW - 08/02/2024 11:54 AM EDT OFFICE OF CARE MANAGEMENT PROGRESS NOTE LOS: Hospital Day 1 day Chart reviewed, care reviewed with primary team and at interdisciplinary rounds. Patient continues to meet inpatient level of care related to: PAD (peripheral artery disease) Functional status prior to admission: Independent Home Environment: Others in the home: sibling(s), other relative(s). Current Living Arrangements: home/apartment/condo. Accessibility Concerns: 2 level home includng basement. Current Functional Ability: assistive equipment- standard walker DME used at home: crutches DME Needed at Discharge: tbd Patient is insured through: Primary Insurance: [place] MANA[employer]ED MEDICARE Payor: [employer]ED MEDICARE / Plan: [place] [employer]NA[employer]ED MEDICARE PPO / Product Type: *No Product type* / Secondary Insurance: N/A Last Physical Therapy Recommendation: with Last Occupational Therapy Recommendation: with Plan for discharge is: return home with family Agency Referrals: tbd Transportation: family\friend Barriers to discharge: none reported Plan going forward: return home with family Anticipated Date of Discharge: 08/03/2024 DENISSE Olivo * Initial Assessments - Roxane Zhu MSW - 08/02/2024 11:49 AM EDT Office of Care Management Initial Assessment DENISSE Luciano reviewed record and discussed patient with Care Team. Source of Information: Team, bedside nurse, medical record, and Patient, Chart Review LAW WRITER Introduced self/reviewed role; services accepted. Admitted From: Home Reason for Hospitalization: Leg pain Past medical History: Past Medical History: Diagnosis Date Depression Hyperlipidemia Hypertension Narcolepsy Obesity Hospitalizations Within the Past 30 Days: planned readmission Current Decision-Making Capacity: Self If AD's have not been completed the following surrogate would be surrogate decision maker per [place] decision making law. (Only good for 180 days) Any patient receiving care in [place] must abide by [place] law. The hierarchy for surrogate decision making [...] (i) The agent with financial power of employment law attorney or a conservator appointed in accordance with RSA 464-A. (j) The guardian of the patient???s estate. Advance Care Planning: Attempt Cardiopulmonary Resuscitation - Inpatient <no information> -Advanced Directive: No, declines Current Coping/Education/Information Needs: Coping ok Current Functional Ability: Assistive Equipment (Walker - standard) Functional Status Prior to Admission: Independent Prior ADLs & IADLs: Independent with all ADLs & IADLs Home Environment: Others in the home: sibling(s), other relative(s). Current Living Arrangements: home/apartment/condo. Accessibility Concerns:2 level home includng basement. In the last 12 months, was there a time when you were not able to pay the mortgage or rent on time?: No In the past 12 months, how many times have you moved where you were living?: 1 At any time in the past 12 months, were you homeless or living in a fci (including now)?: No In the past 12 months has the [employer], gas, oil, or water [employer] threatened to shut off services in your [...] needed for daily living?: No Current DME: chilo Home Address confirmed as: [address] [address] Social & Family Supports: All names listed below confirmed with patient as current and correct Extended Emergency Contact Information Primary Emergency Contact: Rene Dixon Relation: Spouse Secondary Emergency Contact: Cony Barrientos Relation: Mother Current Care Provided by: self Provides Primary Care For: no one Caregiver if needed: Quality of Family relationships: helpful, involved Community Resources being provided currently: none Behavioral Health History: Depression Substance Use/Abuse confirmed: Social History Tobacco Use Smoking Status Every Day Current packs/day: 0.00 Average packs/day: 1 pack/day for 25.0 years (25.0 ttl pk-yrs) Types: Cigarettes Start date: 12/28/1986 Last attempt to quit: 12/28/2011 Years since quittin.6 Smokeless Tobacco Never In the past year have you used an illegal drug or used a prescription medication for non-medical reasons?: Yes (cocaine) DAST Score: 3 0 No problems reported [...] points: Addiction likely Other Pertinent/Service Specific Information: Provided pt Consumer???s Guide for Substance Use Treatment in the [facility]. Refuses sub tx but took the booklet to read over Health/Prescription Coverage: Primary Insurance: [employer]ED MEDICARE [facility] / Plan: [employer]ED MEDICARE PPO / Product Type: *No Product type* / Secondary Insurance: N/A ; Prescription Coverage: Yes [place] [facility] [place], [place] - [address] [address] [facility] - [place], [place] - [address] [place] [id number] [place] Status: Patient is a : No Primary Care Provider: Pt has new PCP but cannot remember who it is Patient/Caregiver Goals of Treatment: Return home with family Potential Needs for Transition of Care: none Agency Referrals: tbd Transportation: no concerns Transportation Anticipated: family or friend will provide Concerns to be Addressed: denies needs/concerns at this time Assessment: Patient is admitted to Surgical service for PAD (peripheral artery disease) Plan going forward: Return home with family Care Management team will continue to follow and assist with discharge planing and coordination of care as indicated. DENISSE Olivo * Plan of Care - Jeramy Escobar RN - 08/02/2024 11:49 AM EDT OUTCOME EVALUATION NOTE: OUTCOME SUMMARY: Pt. Alert and oriented. VSS. Pt. Encouraged to ambulate to chair, achieved. BS elevated, aware. Pt. Verbalizes pain in the groin area, unrelieved by pain medication. aware, ordered lidocaine patches. Scott removed, voided twice in urinal. Voided with encouragement, not much sensation. Pt. Is encouraged to ask questions and verbalizes understanding PLAN MOVING FORWARD: Ambulation BS management Pulse Check INDIVIDUALIZED FALL PREVENTION INTERVENTIONS: Patient-specific fall risk factors per assessment: [current deficits]: weak on foot Assistance [level of assistance required for transfers and ambulation]: supervision Supervision [direct monitoring required during toileting and ADLs]: minimal Surveillance [continuous indirect monitoring]: masleonoro Patient-specific fall prevention interventions for sensory deficits provided, if applicable: [X] No CARE PLAN GOAL OUTCOME EVALUATION: Problem: Fall Injury Risk Goal: Absence of Fall and Fall-Related Injury Outcome: Ongoing (Interventions Implemented as Appropriate) Problem: Adult Inpatient Plan of Care Goal: [...] Outcome: Ongoing (Interventions Implemented as Appropriate) Problem: Diabetes Comorbidity Goal: Blood Glucose Level Within Targeted Range Outcome: Ongoing (Interventions Implemented as Appropriate) Problem: Hypertension Comorbidity Goal: Blood Pressure in Desired Range Outcome: Ongoing (Interventions Implemented as Appropriate) * Consult Note - Lilli Santana RD - 08/02/2024 9:48 AM EDT Nutrition Initial Note Lux Dixon Jr. is a 49 y.o. male admitted with history of CAD s/p CABG, DM, obesity, NSTEMI, HTN, HLD, depression, tobacco use, substance use and left foot pain who presents to [facility] for left lowerextremity bypass. Previous admission at [facility] (07/14-07/21). 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 Incision made at the PIP joint space, amputation performed at the transmetatarsal space. Per H&P note 07/14, patient had also been previously admitted to the [facility] Vascular Surgery service on 05/28 - 06/02 of this year for short segment left popliteal occlusion. He was treated with a heparin drip with improvement, was also treated for cellulitis of his LLE. Interval History No data found. Reason for Assessment: MST Evaluation Nutrition Recommendations: Continue carbohydrate control diet level 2 as appropriate Glucerna PRN (chocolate) Monitoring and Evaluation Document % PO intake in flowsheets Weights to trend Monitor BGs Monitor BM Current Nutrition Regimen: Active Orders Diet Carb Control diet 60/60/75 CHO counting level 2 Frequency: Effective Now Number of Occurrences: Until Specified Assessment: Lab Results Component Value Date NA 138 08/02/2024 NA 137 06/02/2024 K 3.7 08/02/2024 K 4.0 06/02/2024 CL 102 08/02/2024 CL 102 06/02/2024 CO2 24 08/02/2024 CO2 23 06/02/2024 BUN 11 08/02/2024 BUN 7 (L) 06/02/2024 CREATININE 0.56 (L) 08/02/2024 CREATININE 0.52 (L) 06/02/2024 ESTGFR 123 06/02/2024 MAGNESIUM 0.72 08/02/2024 MAGNESIUM 0.81 06/02/2024 CALCIUM 9.0 08/02/2024 CALCIUM 9.5 06/02/2024 PHOS 3.3 08/02/2024 PHOS 3.3 06/02/2024 HA1C 12.6 (H) 05/29/2024 Lab Results Component Value Date POCGLU 228 (H) 08/02/2024 POCGLU 160 08/02/2024 POCGLU 151 08/02/2024 POCGLU 121 08/02/2024 POCGLU 234 (H) 08/01/2024 POCGLU 144 08/01/2024 Patient Lines/Drains/Airways Status Active Nutritional LDAs Name Placement date Placement time Site Days PIV 08/01/24 0637 20 gauge metacarpal vein (top of hand), left 08/01/24 0637 -- 1 PIV 08/01/24 0750 18 gauge cephalic vein (lateral side of arm), right 08/01/24 0750 -- 1 Oxygen Therapy / Airway Device: None (Room air) Shift Pressure Injury Prevention Occiput: No Injury Thoracic Spine: No Injury Sacral: No Injury Ischial - left: No Injury Ischial - right: No Injury Heel - left: No Injury Heel - right: No Injury Elbow - left: No Injury Elbow - right: No Injury Device Sites: sonia Last Bowel Movement: 07/30/24 (per pt report) Intake/Output Summary (Last 24 hours) at 08/02/2024 1350 Last data filed at 08/02/2024 1123 Gross per 24 hour Intake 500 ml Output 2100 ml Net -1600 ml Relevant medications: Insulin regimen: glargine 50 units; sliding scale lispro (1-6 units) Protonix Micronutrient repletion 40 mEq Potassium chloride oral tablet - given 08/02 Anthropometrics: Admit Weight: 101.61 kg Estimated body mass index is 32.14 kg/m?? as calculated from the following: Height as of this encounter: 177.8 cm (5' 10). Weight as of this encounter: 101.6 kg (224 lb). [place] Body Weight (IBW) (kg): 75.45 Wt Readings from Last 10 Encounters: 08/01/24 101.6 kg (224 lb) 07/14/24 99.8 kg (220 lb) 06/02/24 102.1 kg (225 lb 1.4 oz) 03/08/12 (!) 122.9 kg (271 lb) 02/09/12 (!) 121.6 kg (268 lb) Patient Vitals for the past 168 hrs: Weight 08/01/24 0615 101.6 kg (224 lb) Estimated / Assessed Needs: Fluid Requirements: Estimated Fluid Requirement Method: Weight Based Method Weight Based Method: 30 Weight Based Calculation: 2190 mL Kcal / K - 2190 Kcal (25 Kcal/Kg - 30 Kcal/Kg) Estimated Protein Needs: 110 g - 146 g (1.5 g/Kg - 2.0 g/Kg) Nutrition intake and intake history / interview: Saw pt at bedside. 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 Pt did not provide specific meal examples. Pt does not take vitamin/mineral or protein supplements at home. Confirms that he haslost weight over the last few years and stated this was intentional as he has changed his eating habits. Stated his UBW was 280# and is now ~223# (however, did note he was ~211# at a doctors visit last week). Per chart, pt does not appear to have clinically significant weight loss x 2 months. Per flowsheets, pt has eaten ice cream and saltine crackers since admission. Denies n/v, diarrhea, constipation, but does experience acid reflux. Lux received Ensure ONS during previous admission and enjoyed these - mortgage underwriter offered to send Glucerna as a lower carbohydrate option pt was agreeable to this(mortgage underwriter sent one today for pt to trial). Pt did not have any nutrition questions at this time. During recent admission, received diabetes education - Per RD note 05/31, pt reported eating 2 meals/day (breakfast and dinner) and snacking throughout the day. Breakfast may be Fruity Raisa with milk or eggs and morris plus 20 oz orange juice. Snacks on chips, ice cream, candy (Nerds clusters) throughout the day and eats an evening meal which is usually takeout (grinder set up operator jig or pizza). Drinks up to 18 cans of Mountain Dew/day or 1.5 gallons of milk daily. No data found. Nutrition Focused Physical Exam: Performed . Subcutaneous Fat Loss Orbital region: None present Upper arm region (triceps/biceps): Mild Thoracic and Lumbar regions (ribs, lower back, and maxillary line): None present Lean Muscle Loss Nondenominational region (temporalis muscle): Mild Clavicle bone region (pectoralis major): Mild Dorsal hand (interosseous muscle): None present Shoulder (deltoid): Mild Scapular bone region (latissimus dorsi, trapezius muscles): Not assessed Thigh region (quadriceps muscle): Mild (right leg only) Posterior calf region (gastrocnemius muscle): Mild (right leg only) Fluid Accumulation Fluid Accumulation: Not assessed Malnutrition Diagnosis: Not identified (LALO Ayala J Parenteral Enteral Nutr. 2011; 36(3): 273-83) Nutrition to continue to follow up while inpatient Lilli Santana, MS, RD, LD Clinical Nutrition * Plan of Care - Lauren Zavala RN - 08/01/2024 11:07 PM EDT OUTCOME SUMMARY: Pt A&Ox4, able to make needs known, uses call saucedo appropriately, appropriate with staff. VSS. Afebrile. No c/o nausea. Pt voiding adequate amounts via scott. Per pt unable to pass gas. C/o incisional pain and soreness. Pain intermittently well controlled with scheduled meds and PRN oxycodone with breakthrough doses administered. Incisions CDI. No s/s of hematoma noted. MD paged for snack coverage insulin. No new orders. Call saucedo in reach, verbalized understanding of POC, Will continue with the current plan of care and update as indicated. Patient Vitals for the past 8 hrs: BP Temp Temp src Resp SpO2 Height 08/02/24 0313 126/82 -- -- 18 98 % -- 08/02/24 0007 132/85 36.6 ??C (97.9 ??F) Oral 18 97 % -- 08/01/24 2209 -- -- -- -- -- 177.8 cm (5' 10) PLAN MOVING FORWARD: Encourage independence. Encourage fluids/nutrition. Maintain pain control. Bed rest, HOB<30 INDIVIDUALIZED FALL PREVENTION INTERVENTIONS: Patient-specific fall risk factors per assessment: [current deficits]: Tethering of lines, Narcotics, new environment, recent surgery, assistive devices, generalized weakness Assistance [level of assistance required for transfers and ambulation]: Bedrest per MD orders, independent with bed mobility Supervision [direct monitoring required during toileting and ADLs]: Eyes on Surveillance [continuous indirect monitoring]: Room near nurses station purposeful rounding call saucedo in reach Patient-specific fall prevention interventions for sensory deficits provided, if applicable: [X] Yes, environmental modifications, lights adjusted to task, non- skid socks CPG GOAL OUTCOME EVALUATION: Ongoing Problem: Fall Injury Risk Goal: Absence of Fall and Fall-Related Injury Outcome: Ongoing (Interventions Implemented as Appropriate) Intervention: Identify and Manage Contributors Flowsheets (Taken 08/01/20242126) Medication Review/Management: medications reviewed Self-Care Promotion: independence encouraged BADL personal objects within reach Intervention: Promote Injury-Free Environment Flowsheets (Taken 08/01/20242126) Safety Promotion/Fall Prevention: activity supervised safety round/check completed fall prevention program maintained Problem: Adult Inpatient Plan of Care Goal: Plan of Care Review Outcome: Ongoing (Interventions Implemented as Appropriate) Flowsheets (Taken 08/01/20242304) Plan of Care Reviewed With: patient Progress: no change Goal: Patient-Specific Goal (Individualized) Outcome: Ongoing (Interventions Implemented as Appropriate) Flowsheets (Taken 08/01/20242304) Anxieties, Fears or Concerns: nothing Individualized Care Needs (what matters): food tonight Patient-Specific Goals (Include Timeframe): pain<5 tonight and sleep Goal: Absence of Hospital-Acquired Illness or Injury Outcome: Ongoing (Interventions Implemented as Appropriate) Intervention: Identify and Manage Fall Risk Flowsheets (Taken 08/01/20242126) Safety Promotion/Fall Prevention: activity supervised safety round/check completed fall prevention program maintained Intervention: Prevent Skin Injury Flowsheets (Taken 08/01/20242126) Body Position: weight shifting Intervention: Prevent and Manage VTE (Venous Thromboembolism) Risk Flowsheets (Taken 08/01/20242126) VTE Prevention/Management: (called distribution for SCD pump) anticoagulant therapy SCDs on intermittently Intervention: Prevent Infection Flowsheets (Taken 08/01/20242126) Infection Prevention: rest/sleep promoted personal protective equipment utilized hand hygiene promoted Goal: Optimal Comfort and Wellbeing Outcome: Ongoing (Interventions Implemented as Appropriate) Intervention: Provide Person-Centered Care Flowsheets (Taken 08/01/20242126) Trust Relationship/Rapport: care explained choices provided questions encouraged reassurance provided thoughts/feelings acknowledged Goal: Readiness for Transition of Care Outcome: Ongoing (Interventions Implemented as Appropriate) Problem: Bleeding (Revascularization) Goal: Absence of Bleeding Outcome: Ongoing (Interventions Implemented as Appropriate) Intervention: Monitor and Manage Bleeding Flowsheets (Taken 08/01/20242126) Bleeding Management: dressing monitored Problem: Bowel Motility Impaired (Revascularization) Goal: Effective Bowel Elimination Outcome: Ongoing (Interventions Implemented as Appropriate) Intervention: Enhance Bowel Motility and Elimination Flowsheets (Taken 08/01/20242126) Bowel Motility Enhancement: fluid intake encouraged oral intake encouraged Bowel Elimination Management: hygiene measures promoted toileting offered Problem: Infection (Revascularization) Goal: Absence of Infection Signs and Symptoms Outcome: Ongoing (Interventions Implemented as Appropriate) Intervention: Prevent or Manage Infection Flowsheets (Taken 08/01/20242126) Fever Reduction/Comfort Measures: lightweight clothing lightweight bedding Infection Management: aseptic technique maintained Problem: Ongoing Anesthesia Effects (Revascularization) Goal: Anesthesia/Sedation Recovery Outcome: Ongoing (Interventions Implemented as Appropriate) Intervention: Optimize Anesthesia Recovery Flowsheets (Taken 08/01/20242126) Reorientation Measures: clock in view glasses use encouraged Safety Promotion/Fall Prevention: activity supervised safety round/check completed fall prevention program maintained Problem: Pain (Revascularization) Goal: Acceptable Pain Control Outcome: Ongoing (Interventions Implemented as Appropriate) Intervention: Prevent or Manage Pain Flowsheets (Taken 08/01/20242126) Diversional Activities: television smartphone Pain Management Interventions: [id number] dosing utilized care clustered pain management plan reviewed with patient/caregiver pillow support provided position adjusted prescribed exercises encouraged quiet environment facilitated Problem: Postoperative Nausea and Vomiting (Revascularization) Goal: Nausea and Vomiting Relief Outcome: Ongoing (Interventions Implemented as Appropriate) Intervention: Prevent or Manage Nausea and Vomiting Flowsheets (Taken 08/01/2024 2305) Nausea/Vomiting Interventions: stimuli minimized Problem: Postoperative Urinary Retention (Revascularization) Goal: Effective Urinary Elimination Outcome: Ongoing (Interventions Implemented as Appropriate) Intervention: Monitor and Manage Urinary Retention Flowsheets (Taken 08/01/20242126) Urinary Elimination Promotion: catheter patency maintained Problem: Tissue Perfusion Altered (Revascularization) Goal: Effective Tissue Perfusion Outcome: Ongoing (Interventions Implemented as Appropriate) Intervention: Optimize Tissue Perfusion Flowsheets (Taken 08/01/20242126) Body Position: weight shifting Problem: Diabetes Comorbidity Goal: Blood Glucose Level Within Targeted Range Outcome: Ongoing (Interventions Implemented as Appropriate) Intervention: Monitor and Manage Glycemia Flowsheets (Taken 08/01/20242126) Glycemic Management: blood glucose monitored Note: paged for meal and snack coverage Problem: Hypertension Comorbidity Goal: Blood Pressure in Desired Range Outcome: Ongoing (Interventions Implemented as Appropriate) Intervention: Maintain Blood Pressure Management Flowsheets (Taken 08/01/20242126) Medication Review/Management: medications reviewed Syncope Management: position changed slowly * Plan of Care - Jeramy Escobar RN - 08/01/2024 4:05 PM EDT OUTCOME EVALUATION NOTE: OUTCOME SUMMARY: Pt. Arrived to the floor from PACU with family. Pt was alert and oriented but lethargic. Pt. Hypotensive in the 70-80's sys. aware. Bolus of LR ordered and delivered. Pt. Endorses some pain in leg. Pulses palatable. Currently on bedrest. Scott in place. Pt. And family educated on POC and encouraged to ask questions. PLAN MOVING FORWARD: VSS [employer] INDIVIDUALIZED FALL PREVENTION INTERVENTIONS: Patient-specific fall risk factors per assessment: [current deficits]: on bedrest Assistance [level of assistance required for transfers and ambulation]: bedrest Supervision [direct monitoring required during toileting and ADLs]: scott Surveillance [continuous indirect monitoring]: masimo Patient-specific fall prevention interventions for sensory deficits provided, if applicable: [X] No CARE PLAN GOAL OUTCOME EVALUATION: Problem: Fall Injury Risk Goal: Absence of Fall and Fall-Related Injury Outcome: Ongoing (Interventions Implemented as Appropriate) Problem: Adult Inpatient Plan of Care Goal: Plan of Care Review Outcome: Ongoing (Interventions Implemented as Appropriate) Goal: Patient-Specific Goal (Individualized) Outcome: Ongoing (Interventions Implemented as Appropriate) Goal: Absence of Hospital-Acquired Illness or Injury Outcome: Ongoing (Interventions Implemented as Appropriate) Goal: Optimal Comfort and Wellbeing Outcome: Ongoing (Interventions Implemented as Appropriate) Goal: Readiness for Transition of Care Outcome: Ongoing (Interventions Implemented as Appropriate) * Op Note - Lisette Maldonado MD - 08/01/2024 8:30 AM EDT [facility] Operative Note Patient Name: Lux Dixon Jr. : [id number] MR#: [id number] Case Date: 08/01/2024 Surgeon: Surgeons and Role: * Lisette Maldonado MD - Primary * Cristiano Jones MD - Resident - Assisting * Dennis Guzman MD - Fellow - Assisting Preoperative diagnosis: CLTI Postoperative diagnosis: CLTI Procedure(s) (LRB): @BYPASS GRAFT, FEM-ANT TIBIAL, -POST TIBIAL, -PERONEAL, -DP W\ SYNTHETIC CONDUIT (WRVU 23.66) (Left) Left iliofemoral endarterectomy Left femoral to below-knee popliteal artery bypass with 7mm ringed PTFE Anesthesia: General Estimated Blood Loss: 137 mL Specimens removed during surgery: None Drains:None Heparin/Protamine: 14,000u/40mg Urine: 1.3L IVF: 1.5L crystalloid Surgical Closure: Primary Closure - skin incision is completely closed without any wires, santa, drains or other devices Disposition: awakened from anesthesia, extubated and taken to the recovery room in a stable condition, having suffered no apparent untoward event. Condition: doing well without problems (Please see the Surgical Encounter Summary for any Implant and Specimen details pertinent to this patient.) Findings: Left distal external iliac proximal femoral arteries with mixed calcified>atheromatousplaque. Left below-knee popliteal artery diseased, but with sizeable lumen. Above procedures performed. Palpable DP at the end of the case, strong pulse/biphasic signal in the profunda. HPI/Surgical Indications: 49 y.o. male with a history of CAD s/p CABG, DM, obesity, NSTEMI, HTN, HLD, depression, tobacco use, substance use and left foot pain with ulcers who presents to [facility] for left lower extremity bypass. Procedure Description: After informed consent was obtained the patient was brought back to the operating room and placed supine on the OR table. General anesthesia was induced and the patient was intubated with an ETT. Additional support lines (scott, arterial line, PIVs) were placed. Preoperative antibiotics were given. A timeout was performed. Attention was then turned to the patient's left leg, which was prepped and draped in the standard sterile fashion. A longitudinal incision was made overlying the patient's left common femoral artery. Subcutaneous tissue was divided with a combination of electrocautery and sharp dissection with metzenbaums. The distal external iliac, superficial femor al, profunda and circumflex arteries were circumferentially dissected and encircled with vessel loops. Next, an incision was made along the medial aspect of the patient's left calf. Subcutaneous tissue and fascia were divided with cautery. The above-knee popliteal artery was identified; it was diseased, but with a decent Doppler signal and adequate lumen diameter. This was circumferentially dissected and encircled with vessel loops. A tunnel was created between the two incisions in an anatomic position. The 7mm ringed PTFE was tunneled. Systemic heparin was given. We then turned to the distal anastomosis. The popliteal artery was clamped proximal and distal. An arteriotomy was made along the popliteal artery with an 11-blade. The PTFE was spatulated. The distal anastomosis was created using 6 gortex suture in a running fashion. Prior to completion of the anastomosis the arteries were flu shed. Attention was then turned to the groin incision. The EIA, profunda, SFA and circumflex arteries were clamped. A longitudinal arteriotomy was made on the anterior surface of the common femoral artery and extended with Pott's scissors onto the external iliac proximally and the SFA distally. Theexternal iliac, FO[employer]ING MACHINE OPERATOR and proximal SFA were endarterectomized in the standard fashion. The profunda femoral was eversion endarterectomized. Two taking sutures of 7-0 prolene were placed on the profundaorigin to secure thin residual plaque. The arteriotomy was closed with bovine pericardial patch angioplasty using 5-0 prolene in a running fashion. Prior to completion of the anastomosis the arterieswere all flushed to expel debris and air. The anastomosis was completed and attention was turned to the proximal bypass anastomosis. An incision was created in the center of the bovine patch and extended for a length of 2cm. The PTFE was cut to proper size with the length straight and spatulated. The proximal anastomosis was completed with 6 Gortex suture in a running fashion. Once again, prior to completion of the anastomosis the arteries and graft were flushed. The anastomosis was complete and all clamps were removed. There was a graft-dependent DP pulse on the foot and excellent Doppler signals in the profunda and distal popliteal arteries. Satisfied with these results, Protamine was given. Hemostasis was ensured with thrombin-soaked gelfoam and floseal. The wounds were then closed in multiple layers of interrupted 3-0 vicryl sutures, with application of vancomycin beads between layers. The skin was closed with running 4-0 monocryl in a subcuticular fashion. The wounds were then cleansed and dressed. The patient was awoken, extubated and taken to PACU in stable condition. All counts were reported to be correct. Surgical Infection Prevention Bundle Used? Yes Infection present at time of surgery? No Pre-operative IV antibiotics: Ceftriaxone Attestation: Case Date: 08/01/2024 I was present and I participated during the entire procedure (does not need to include opening and closing). Lisette Maldonado MD 08/01/2024 documented in this encounter Plan of Treatment Scheduled Referrals Name Type Priority Associated Diagnoses Orde r Schedule Referral to Home Health Outpatient Referral Routine Critical limb ischemia of left lower extremity Ordered: 08/03/2024 documented as of this encounter Procedures Procedure Name Priority Date/Time Associated Diagnosis Comments POC, GLUCOSE Routine 08/03/2024 12:27 PM EDT POC, GLUCOSE Routine 08/03/2024 8:06 AM EDT CBC (WITH DIFF) Routine 08/03/2024 4:41 AM EDT PHOSPHORUS Routine 08/03/2024 4:41 AM EDT MAGNESIUM Routine 08/03/2024 4:41 AM EDT BASIC METABOLIC PANEL Routine 08/03/2024 4:41 AM EDT POC, GLUCOSE Routine 08/03/2024 3:58 AM EDT POC, GLUCOSE Routine 08/02/2024 11:06 PM EDT POC, GLUCOSE Routine 08/02/2024 7:46 PM EDT POC, GLUCOSE Routine 08/02/2024 5:17 PM EDT POC, GLUCOSE Routine 08/02/2024 12:44 PM EDT POC, GLUCOSE Routine 08/02/2024 7:43 AM EDT CBC (WITH DIFF) Routine 08/02/2024 3:49 AM EDT PHOSPHORUS Routine 08/02/2024 3:49 AM EDT MAGNESIUM Routine 08/02/2024 3:49 AM EDT BASIC METABOLIC PANEL Routine 08/02/2024 3:49 AM EDT POC, GLUCOSE Routine 08/02/2024 3:08 AM EDT POC, GLUCOSE Routine 08/02/2024 12:07 AM EDT POC, GLUCOSE Routine 08/01/2024 7:52 PM EDT POC, GLUCOSE Routine 08/01/2024 4:28 PM EDT POC, GLUCOSE Routine 08/01/2024 11:26 AM EDT POC, GLUCOSE Routine 08/01/2024 10:17 AM EDT BLOOD GAS ARTERIAL POC Routine 08/01/2024 8:04 AM EDT Bypass Graft Othr, Fem-Tibial ([id number]) 08/01/2024 7:34 AM EDT CLTI POC, GLUCOSE Routine 08/01/2024 6:23 AM EDT BYPASS GRAFT, FEM-ANT TIBIAL, -POST TIBIAL, -PERONEAL, -DP W\ SYNTHETIC CONDUIT Routine 08/01/2024 6:03 AM EDT IMPLANTABLE DEVICES SCAN 08/01/2024 12:00 AM EDT documented in this encounter Results * POC, GLUCOSE (08/03/2024 12:27 PM EDT) [facility] Glucometer, POC 81 65 - 199 mg/dL 08/03/2024 12:27 PM EDT [facility] Comment:Supplemental ranges: <140 mg/dL before meals <180 mg/dL all other times of the day. Blood CAPILLARY BLOOD / Unknown 08/03/2024 12:27 PM EDT 08/03/2024 12:27 PM EDT Lisette Maldonado MD POINT OF CARE TEST ORDERABLES [facility] [place] [address] * POC, GLUCOSE (08/03/2024 8:06 AM EDT) Glucometer, POC 137 65 - 199 mg/dL 08/03/2024 8:06 AM EDT [facility] Comment:Supplemental ranges: <140 mg/dL before meals <180 mg/dL all other times of the day. Blood CAPILLARY BLOOD / Unknown 08/03/2024 8:06 AM EDT 08/03/2024 8:06 AM EDT Lisette Maldonado MD POINT OF CARE TEST ORDERABLES Performing Organization Address City/[facility]/ZIP Co de Phone Number [facility] [place] [address] * Phosphorus (08/03/2024 4:41 AM EDT) Phosphorus 3.4 2.5 - 4.5 mg/dL 08/03/2024 5:22 AM EDT [facility] Blood VENOUS BLOOD SPECIMEN / Unknown IP Care Team Draw / Unknown 08/03/2024 4:41 AM EDT 08/03/2024 4:51 AM EDT Lisette Maldonado MD CHEMISTRY ORDERABL ES Performing Organization Address City/[facility]/ZIP Co de Phone Number [facility] [place] [address] * Magnesium (08/03/2024 4:41 AM EDT) Magnesium 0.81 0.69 - 1.07 mMol/L 08/03/2024 5:22 AM EDT [facility] Blood VENOUS BLOOD SPECIMEN / Unknown IP Care Team Draw / Unknown 08/03/2024 4:41 AM EDT 08/03/2024 4:51 AM EDT Lisette Maldonado MD CHEMISTRY ORDERABL ES [facility] [place] [address] * (ABNORMAL) Basic Metabolic Panel (08/03/2024 4:41 AM EDT) Glucose 179 65 - 199 mg/dL 08/03/2024 6:51 AM EDT [facility] Comment:Glucose Concentratio n >=200 mg/dL plus symptoms is consistent with Diabetes Mellitus. Blood Urea Nitrogen 10 10 - 20 mg/dL 08/03/2024 6:51 AM EDT [facility] Creatinine 0.50(L) 0.80 - 1.50 mg/dL 08/03/2024 6:51 AM [facility] Sodium 135 135 - 145 mMol/L 08/03/2024 6:[facility] Potassium 3.9 3.5 - 5.0 mMol/L 08/03/2024 6:51 AM [facility] Chloride 100 98 - 107 mMol/L 08/03/2024 6:51 AM [facility] Carbon Dioxide 26 22 - 31 mMol/L 08/03/2024 6:51 AM [facility] Anion Gap 9 5 - 15 mMol/L 08/03/2024 6:51 AM [facility] Calcium 9.6 8.5 - 10.5 mg/dL 08/03/2024 6:51 AM [facility] Est Glomerular Filtration Rate - Male 124 mL/min/1. 73 m?? 08/03/2024 6:51 AM [facility] Comment: This patient's estimated GFR [...] EDT Lisette Maldonado MD CHEMISTRY ORDERABL ES [facility] [place] [address] * (ABNORMAL) CBC (with Diff) (08/03/2024 4:41 AM EDT) White Blood Cell 10.74(H) 4.00 - 9.50 x10(3)/mc L 08/03/2024 4:57 AM EDT [facility] Red Blood Cell 4.23(L) 4.58 - 5.54 x10(6)/mc L 08/03/2024 4:57 AM EDT [facility] Hemoglobin 12.5(L) 13.7 - 16.5 g/dL 08/03/2024 4:57 AM T [facility] Hematocrit 38.5(L) 40.5 - 48.5 % 08/03/2024 4:57 AM EDT [facility] Mean Cell Volume 91.0 82.9 - 93.1 fL 08/03/2024 4:57 AM T [facility] Mean Cell Hemoglobin 29.6 27.5 - 32.1 pg 08/03/2024 4:57 AM EDT [facility] Mean Cell Hemoglobin Concentration 32.5 32.0 - 35.7 g/dL 08/03/2024 4:57 AM EDT [facility] Platelet 309 145 - 357 x10(3)/mc L 08/03/2024 4:57 AM EDT [facility] Mean Platelet Volume 9.7 7.6 - 12.9 fL 08/03/2024 4:57 AM EDT [facility] RDW Standard Deviation 44.0 36.0 - 45.0 fL 08/03/2024 4:57 AM [facility] RDW coefficient of variation 13.3 11.4 - 13.8 % 08/03/2024 4:57 AM [facility] NRBC% auto 0.0 % 08/03/2024 4:57 AM [facility] NRBC Absolute <0.01 <0.01 x10(3)/mc L 08/03/2024 4:57 AM [facility] Neutrophil % 71.7 % 08/03/2024 4:57 AM [facility] Neutrophil Absolute (ANC) - Automated 7.71(H) 1.70 - 6.10 x10(3)/mc L 08/03/2024 4:57 AM [facility] Lymph % 18.5 % 08/03/2024 4:57 AM [facility] Lymph Absolute 1.99 0.90 - 3.20 x10(3)/mc L 08/03/2024 4:57 AM [facility] Monocyte % 7.2 % 08/03/2024 4:57 AM [facility] Monocyte Absolute 0.77 0.30 - 0.90 x10(3)/mc L 08/03/2024 4:57 AM [facility] Eos % 1.5 % 08/03/2024 4:57 AM [facility] Eos Absolute 0.16 0.00 - 0.40 x10(3)/mc L 08/03/2024 4:57 AM [facility] Basophil % 0.6 % 08/03/2024 4:57 AM [facility] Baso Absolute 0.06 0.00 - 0.10 x10(3)/mc L 08/03/2024 4:57 AM [facility] Immature Gran % 0.5 % 4:57 AM [facility] Immature Gran Absolute 0.05(H) 0.00 - 0.04 x10(3)/mc L 08/03/2024 4:57 AM EDT [facility] Blood VENOUS BLOOD SPECIMEN / Unknown IP Care Team Draw / Unknown 08/03/2024 4:41 AM EDT 08/03/2024 4:51 AM EDT Lisette Maldonado MD HEMATOLOGY ORDERAB LES Performing Organization Address City/[facility] Co de Phone Number [facility] [place] [address] * (ABNORMAL) POC, GLUCOSE (08/03/2024 3:58 AM EDT) Glucometer, POC 200(H) 65 - 199 mg/dL 08/03/2024 3:58 AM EDT [facility] Comment:Supplemental ranges: <140 mg/dL before meals <180 mg/dL all other times of the day. Blood CAPILLARY BLOOD / Unknown 08/03/2024 3:58 AM EDT 08/03/2024 3:58 AM EDT Lisette Maldonado MD POINT OF CARE TEST ORDERABLES Performing Organization Address [facility] Co de Phone Number [facility] [place] [address] * POC, GLUCOSE (08/02/2024 11:06 PM EDT) Glucometer, POC 194 65 - 199 mg/dL 08/02/2024 11:07 PM EDT [facility] Comment:Supplemental ranges: <140 mg/dL before meals <180 mg/dL all other times of the day. Blood CAPILLARY BLOOD / Unknown 08/02/2024 11:06 PM EDT 08/02/2024 11:07 PM EDT Lisette Maldonado MD POINT OF CARE TEST ORDERABLES Performing Organization Address City/[facility] Co de Phone Number [facility] [place] [address] * (ABNORMAL) POC, GLUCOSE (08/02/2024 7:46 PM EDT) Glucometer, POC 226(H) 65 - 199 mg/dL 08/02/2024 7:46 PM EDT [facility] Comment:Supplemental ranges: <140 mg/dL before meals <180 mg/dL all other times of the day. Blood CAPILLARY BLOOD / Unknown 08/02/2024 7:46 PM EDT 08/02/2024 7:46 PM EDT Lisette Maldonado MD POINT OF CARE TEST ORDERABLES [facility] [place] [address] * (ABNORMAL) POC, GLUCOSE (08/02/2024 5:17 PM EDT) Glucometer, POC 236(H) 65 - 199 mg/dL 08/02/2024 5:17 PM EDT [facility] Comment:Supplemental ranges: <140 mg/dL before meals <180 mg/dL all other times of the day. Blood CAPILLARY BLOOD / Unknown 08/02/2024 5:17 PM EDT 08/02/2024 5:17 PM EDT Lisette Maldonado MD POINT OF CARE TEST ORDERABLES [facility] [place] [address] * (ABNORMAL) POC, GLUCOSE (08/02/2024 12:44 PM EDT) Glucometer, POC 228(H) 65 - 199 mg/dL 08/02/2024 12:45 PM EDT [facility] Comment:Supplemental ranges: <140 mg/dL before meals <180 mg/dL all other times of the day. Blood CAPILLARY BLOOD / Unknown 08/02/2024 12:44 PM EDT 08/02/2024 12:45 PM EDT Lisette Maldonado MD POINT OF CARE TEST ORDERABLES Performing Organization Address [facility] Co de Phone Number [facility] [place] [address] * POC, GLUCOSE (08/02/2024 7:43 AM EDT) Glucometer, POC 160 65 - 199 mg/dL 08/02/2024 7:43 AM EDT [facility] Comment:Supplemental ranges: <140 mg/dL before meals <180 mg/dL all other times of the day. Blood CAPILLARY BLOOD / Unknown 08/02/2024 7:43 AM EDT 08/02/2024 7:43 AM EDT Lisette Maldonado MD POINT OF CARE TEST ORDERABLES Performing Organization Address [facility] Co de Phone Number [facility] [place] [address] * Phosphorus (08/02/2024 3:49 AM EDT) Phosphorus 3.3 2.5 - 4.5 mg/dL 08/02/2024 4:53 AM EDT [facility] Blood VENOUS BLOOD SPECIMEN / Unknown IP Care Team Draw / Unknown 08/02/2024 3:49 AM EDT 08/02/2024 4:24 AM EDT Lisette Maldonado MD CHEMISTRY ORDERABL ES Performing Organization Address City/[facility]/ZIP Co de Phone Number [facility] [place] [address] * Magnesium (08/02/2024 3:49 AM EDT) Magnesium 0.72 0.69 - 1.07 mMol/L 08/02/2024 6:53 AM EDT [facility] Blood VENOUS BLOOD SPECIMEN / Unknown IP Care Team Draw / Unknown 08/02/2024 3:49 AM EDT 08/02/2024 4:24 AM EDT Lisette Maldonado MD CHEMISTRY ORDERABL ES [facility] [place] [address] * (ABNORMAL) Basic Metabolic Panel (08/02/2024 3:49 AM EDT) Glucose 136 65 - 199 mg/dL 08/02/2024 4:53 AM EDT [facility] Comment:Glucose Concentratio n >=200 mg/dL plus symptoms is consistent with Diabetes Mellitus. Blood Urea Nitrogen 11 10 - 20 mg/dL 08/02/2024 4:53 AM [facility] Creatinine 0.56(L) 0.80 - 1.50 mg/dL 08/02/2024 4:53 AM [facility] Sodium 138 135 - 145 mMol/L 08/02/2024 4:53 AM [facility] Potassium 3.7 3.5 - 5.0 mMol/L 08/02/2024 4:53 AM [facility] Chloride 102 98 - 107 mMol/L 08/02/2024 4:53 AM [facility] Carbon Dioxide 24 22 - 31 mMol/L 08/02/2024 4:53 AM [facility] Anion Gap 12 5 - 15 mMol/L 08/02/2024 4:53 AM [facility] Calcium 9.0 8.5 - 10.5 mg/dL 08/02/2024 4:53 AM [facility] Est Glomerular Filtration Rate - Male 120 mL/min/1. 73 m?? 08/02/2024 4:53 AM [facility] Comment: This patient's estimated GFR [...] Unknown IP Care Team Draw / Unknown 08/02/2024 3:49 AM EDT 08/02/2024 4:24 AM EDT Lisette Maldonado MD CHEMISTRY ORDERABL ES [facility] [place] [address] * (ABNORMAL) CBC (with Diff) (08/02/2024 3:49 AM EDT) White Blood Cell 11.20(H) 4.00 - 9.50 x10(3)/mc L 08/02/2024 4:30 AM EDT [facility] Red Blood Cell 4.14(L) 4.58 - 5.54 x10(6)/mc L 08/02/2024 4:30 AM EDT [facility] Hemoglobin 12.0(L) 13.7 - 16.5 g/dL 08/02/2024 4:30 AM [facility] Hematocrit 37.7(L) 40.5 - 48.5 % 08/02/2024 4:30 AM T [facility] Mean Cell Volume 91.1 82.9 - 93.1 fL 08/02/2024 4:30 AM [facility] Mean Cell Hemoglobin 29.0 27.5 - 32.1 pg 08/02/2024 4:30 AM [facility] Mean Cell Hemoglobin Concentration 31.8(L) 32.0 - 35.7 g/dL 08/02/2024 4:30 AM [facility] Platelet 330 145 - 357 x10(3)/mc L 08/02/2024 4:30 AM [facility] Mean Platelet Volume 10.1 7.6 - 12.9 fL 08/02/2024 4:30 AM [facility] RDW Standard Deviation 44.7 36.0 - 45.0 fL 08/02/2024 4:30 AM [facility] RDW coefficient of variation 13.4 11.4 - 13.8 % 08/02/2024 4:30 AM [facility] NRBC% auto 0.0 % 08/02/2024 4:30 AM [facility] NRBC Absolute <0.01 <0.01 x10(3)/mc L 08/02/2024 4:30 AM [facility] Neutrophil % 71.9 % 08/02/2024 4:30 AM [facility] Neutrophil Absolute (ANC) - Automated 8.04(H) 1.70 - 6.10 x10(3)/mc L 08/02/2024 4:30 AM [facility] Lymph % 19.7 % 08/02/2024 4:30 AM [facility] Lymph Absolute 2.21 0.90 - 3.20 x10(3)/mc L 08/02/2024 4:30 AM [facility] Monocyte % 5.7 % 08/02/2024 4:30 AM [facility] Monocyte Absolute 0.64 0.30 - 0.90 x10(3)/mc L 08/02/2024 4:30 AM [facility] Eos % 1.6 % 08/02/2024 4:30 AM [facility] Eos Absolute 0.18 0.00 - 0.40 x10(3)/mc L 08/02/2024 4:30 AM [facility] Basophil % 0.7 % 08/02/2024 4:30 AM [facility] Baso Absolute 0.08 0.00 - 0.10 x10(3)/mc L 08/02/2024 4:30 AM EDT [facility] Immature Gran % 0.4 % 4:30 AM EDT [facility] Immature Gran Absolute 0.05(H) 0.00 - 0.04 x10(3)/mc L 08/02/2024 4:30 AM EDT [facility] Blood VENOUS BLOOD SPECIMEN / Unknown IP Care Team Draw / Unknown 08/02/2024 3:49 AM EDT 08/02/2024 4:24 AM EDT Lisette Maldonado MD HEMATOLOGY ORDERAB LES Performing Organization Address City/[facility]/ZIP Co de Phone Number [facility] [place] [address] * POC, GLUCOSE (08/02/2024 3:08 AM EDT) Glucometer, POC 151 65 - 199 mg/dL 08/02/2024 3:08 AM EDT [facility] Comment:Supplemental ranges: <140 mg/dL before meals <180 mg/dL all other times of the day. Blood CAPILLARY BLOOD / Unknown 08/02/2024 3:08 AM EDT 08/02/2024 3:08 AM EDT Lisette Maldonado MD POINT OF CARE TEST ORDERABLES [facility] [place] [address] * POC, GLUCOSE (08/02/2024 12:07 AM EDT) Glucometer, POC 121 65 - 199 mg/dL 08/02/2024 12:07 AM EDT [facility] Comment:Supplemental ranges: <140 mg/dL before meals <180 mg/dL all other times of the day. Blood CAPILLARY BLOOD / Unknown 08/02/2024 12:07 AM EDT 08/02/2024 12:08 AM EDT Lisette Maldonado MD POINT OF CARE TEST ORDERABLES [facility] [place] [address] * (ABNORMAL) POC, GLUCOSE (08/01/2024 7:52 PM EDT) Glucometer, POC 234(H) 65 - 199 mg/dL 08/01/2024 7:52 PM EDT [facility] Comment:Supplemental ranges: <140 mg/dL before meals <180 mg/dL all other times of the day. Blood CAPILLARY BLOOD / Unknown 08/01/2024 7:52 PM EDT 08/01/2024 7:52 PM EDT Lisette Maldonado MD POINT OF CARE TEST ORDERABLES Performing Organization Address City/[facility]/ZIP Co de Phone Number [facility] [place] [address] * POC, GLUCOSE (08/01/2024 4:28 PM EDT) Glucometer, POC 144 65 - 199 mg/dL 08/01/2024 4:30 PM EDT [facility] Comment:Supplemental ranges: <140 mg/dL before meals <180 mg/dL all other times of the day. Blood CAPILLARY BLOOD / Unknown 08/01/2024 4:28 PM EDT 08/01/2024 4:30 PM EDT Lisette Maldonado MD POINT OF CARE TEST ORDERABLES [facility] [place] [address] * (ABNORMAL) POC, GLUCOSE (08/01/2024 11:26 AM EDT) Glucometer, POC 208(H) 65 - 199 mg/dL 08/01/2024 11:26 AM EDT [facility] Comment:Supplemental ranges: <140 mg/dL before meals <180 mg/dL all other times of the day. Blood CAPILLARY BLOOD / Unknown 08/01/2024 11:26 AM EDT 08/01/2024 11:26 AM EDT Lisette Maldonado MD POINT OF CARE TEST ORDERABLES [facility] [place] [address] * POC, GLUCOSE (08/01/2024 10:17 AM EDT) Glucometer, POC 82 65 - 199 mg/dL 08/01/2024 10:18 AM EDT [facility] Comment:Supplemental ranges: <140 mg/dL before meals <180 mg/dL all other times of the day. Blood CAPILLARY BLOOD / Unknown 08/01/2024 10:17 AM EDT 08/01/2024 10:18 AM EDT Lisette Maldonado MD POINT OF CARE TEST ORDERABLES [facility] [place] [address] * (ABNORMAL) Blood Gas, Arterial POC (08/01/2024 8:04 AM EDT) pH, Arterial 7.36 7.35 - 7.45 08/01/2024 9:26 AM EDT [facility] PCO2, Arterial 43 35 - 45 mmHg 08/01/2024 9:26 AM EDT [facility] PO2, Arterial 211(H) 85 - 104 mmHg 08/01/2024 9:26 AM EDT [facility] Bicarbonate, Arterial 23.5 20.0 - 26.0 mmol/L 08/01/2024 9:26 AM EDT [facility] Base Excess, Arterial -2.1 -3.0 - 3.0 mmol/L 08/01/2024 9:26 AM EDT [facility] Hemoglobin, Arterial 12.9(L) 13.7 - 16.5 g/dL 08/01/2024 9:26 AM EDT [facility] Oxyhemoglobin, Arterial 96.6 94.0 - 97.0 % 08/01[facility]24 [facility] Carboxyhemoglobin , Arterial 2.3 % 08/01/2024 9:26 AM EDT [facility] Comment: Nonsmokers: 0.5-1.5% COHB ?? Smokers: Variable ??but usually less than 10% ?? Toxic: 20-30% COHB ?? Lethal: Greater than 60% COHB Methemoglobin, Arterial 0.2 <=1.5 % 08/01/2024 9:26 AM EDT [facility] Sodium, Arterial 137 135 - 145 mmol/L 08/01/2024 9:26 AM EDT [facility] Potassium, Arterial 3.8 3.5 - 5.0 mmol/L 08/01/2024 9:26 AM EDT [facility] Chloride, Arterial 105 98 - 107 mmol/L 08/01/2024 9:26 AM EDT [facility] Lactate, Arterial 2.1 0.5 - 2.2 mmol/L 08/01/2024 9:26 AM EDT [facility] IONIZED CALCIUM, ARTERIAL 1.15 1.15 - 1.33 mmol/L 08/01/2024 9:26 AM EDT [facility] Glucose, Arterial 164 65 - 199 mg/dL 08/01/2024 9:26 AM EDT [facility] Comment:Glucose Concentratio n >=200 mg/dL plus symptoms is consistent with Diabetes Mellitus. Blood ARTERIAL BLOOD / Unknown 08/01/2024 8:04 AM EDT 08/01/2024 9:26 AM EDT Lisette Maldonado MD POINT OF CARE TEST ORDERABLES [facility] [place] [address] * (ABNORMAL) POC, GLUCOSE (08/01/2024 6:23 AM EDT) Glucometer, POC 208(H) 65 - 199 mg/dL 08/01/2024 6:24 AM EDT [facility] Comment:Supplemental ranges: <140 mg/dL before meals <180 mg/dL all other times of the day. Blood CAPILLARY BLOOD / Unknown 08/01/2024 6:23 AM EDT 08/01/2024 6:25 AM EDT Lisette Maldonado MD POINT OF CARE TEST ORDERABLES [facility] [place] [address] * Scan Doc: Implantable Devices (08/01/2024 12:00 AM EDT) Narrative 08/01/2024 12:00 AM EDT Ordered by an unspecified provider. Scanning Provider MEDIA MGR SCAN EXT O RDR/RSLT documented in this encounter Visit Diagnoses Not on filedocumented in this encounter Admitting Diagnoses Diagnosis PAD (peripheral artery disease) Peripheral vascular disease, unspecified documented in this encounter Administered Medications Inactive Administered Medications - up to 3 most recent administrations Medication Order MAR Action Action Date Dose Rate Site acetaminophen (Tylenol) tablet 975 mg 975 mg, Oral, EVERY 6 HOURS SCHEDULED, First dose on Wed08/01/24 at 1415, Until Discontinued, When ordered for pain, acetaminophen should be given even when other ordered pain medications are indicated. Maximum dose of acetaminophen is 4,000 mg from all sources in 24 hours. , Routine Given 08/03/2024 3:18 PM EDT 975 mg Given 08/03/2024 8:22 AM EDT 975 mg Given 08/03/2024 3:08 AM EDT 975 mg aspirin EC tablet 81 mg 81 mg, Oral, DAILY, First dose on Wed08/01/24 at 1415, Until Discontinued, Routine Given 08/03/2024 8:22 AM EDT 81 mg Given 08/02/2024 8:26 AM EDT 81 mg Given 08/01/2024 2:38 PM EDT 81 mg atorvastatin (Lipitor) tablet 80 mg 80 mg, Oral, EVERY EVENING, First dose on Wed08/01/24 at 1700, Until Discontinued, Routine Given 08/02/2024 5:09 PM EDT 80 mg Given 08/01/2024 5:58 PM EDT 80 mg bisacodyL (Dulcolax) suppository 10 mg 10 mg, Rectal, DAILY PRN, Starting on Wed08/01/24 at 1359, Until Angelita 08/03/24 at 1845, Constipation, Give if no BM within last 24 hr and rectal fullness is reported or assessed. Give concomitantly with any scheduled bowel medications ordered. , Routine bisacodyL EC (Dulcolax) tablet 10 mg 10 mg, Oral, 2 TIMES DAILY PRN, Starting on Wed08/01/24 at 1359, Until Angelita 08/03/24 at 1845, Constipation, Give if no BM after 24 hr after prior interventions. BM expected in 6-8 hours. If BM desired sooner, use next ordered agent. Give concomitantly with any scheduled bowel medications ordered., Routine dextrose 10% infusion 250 mL, at 1,000 mL/hr, Intravenous, EVERY 15 MIN PRN, Starting on Wed08/01/24 at 1359, Until Angelita 08/03/24 at 1845, For BG 50-70 mg/dL: Oral treatment preferred: [...] insulin orders before administering the next dose. gelatin adsorbable 100 (Gelfoam) sponge PRN, Starting on Wed08/01/24 at 0938, Until Wed08/01/24 at 1353, Intra-Operative (Intra-Procedure), Routine Given 08/01/2024 10:39 AM EDT 1 each 19- Surgical Site Given 08/01/2024 9:38 AM EDT 2 each 19 - Surgical Site glucagon (Glucagen) (1 mg/mL) injection solution 1 mg 1 mg, Intramuscular, EVERY 15 MIN PRN, Starting on Wed08/01/24 at 1359, Until Angelita 08/03/24 at 1845, Low blood sugar, For BG 50-70 mg/dL: [...] Buccal, EVERY 15 MIN PRN, Starting on Wed08/01/24 at 1359, Until Angelita 08/03/24 at 1845, Low blood sugar, For BG 50-70 mg/dL: [...] Units 50 Units, Subcutaneous, NIGHTLY, First dose on Wed08/01/24 at 2100, Until Discontinued, Routine Given 08/02/2024 8:11 PM EDT 50 Units Given 08/01/2024 9:07 PM EDT 50 Units insulin lispro (HumaLOG;Admelog) (100 unit/mL) subcutaneous injection vial 0-19 Units 0-19 Units, Subcutaneous, 3 TIMES DAILY WITH MEALS, First dose on Wed08/03/24 at 0800, Until Discontinued, MEAL ASSOCIATED Give 1 unit: 4 grams of carbohydrate Hold if not eating or if BG less than 70 mg/dL., Routine Given 08/03/2024 1:03 PM EDT 16 Units Given 08/03/2024 8:23 AM EDT 15 Units insulin lispro (HumaLOG;Admelog) (100 unit/mL) subcutaneous injection vial 0-19 Units 0-19 Units, Subcutaneous, 3 TIMES DAILY PRN, Starting on Wed08/02/24 at 1857, Until Wed08/03/24 at 1845, with snacks, SNACK ASSOCIATED Give 1 unit for every 4 grams carbohydrate. Hold if not eating or if BG less than 70 mg/dL., Routine insulin lispro (HumaLOG;Admelog) (100 unit/mL) subcutaneous injection vial 1-6 Units 1-6 Units, Subcutaneous, EVERY 4 HOURS SCHEDULED, First dose (after last modification) on Wed08/02/24 at 2000, Until Discontinued, CORRECTION BOLUS [1-11 Units] Custom [...] mg/dL in 2 hours , Routine Given 08/03/2024 4:05 AM EDT 5 Units Given 08/02/2024 11:07 PM EDT 4 Units Given 08/02/2024 8:11 PM EDT 6 Units lactulose (Chronulac) (0.67 gram/mL) oral liquid 20 g 20 g, Oral, DAILY PRN, Starting on Wed08/01/24 at 1359, Until Wed08/03/24 at 1845, Constipation, Give if no BM 24 hr after prior interventions or if BM is desired within 2 hr. Give concomitantly with any scheduled bowel medications ordered, Routine lactulose (Chronulac) (0.67 gram/mL) oral liquid 20 g 20 g, Oral, DAILY PRN, Starting on Wed08/01/24 at 1359, Until Wed08/03/24 at 1845, Constipation, Give an additional (2nd) dose of lactulose 2 hr after 1st dose if still no BM. Disregard if 1st dose of lactulose not ordered. Give concomitantly with any scheduled bowel medications ordered. , Routine lidocaine (Lidoderm) 5% patch 1 patch 1 patch, Transdermal, Administer over 12 Hours, EVERY 24 HOURS, First dose on Wed08/02/24 at 1800, Until Discontinued, Apply patch(es) for 12 hours, and then remove for 12 hours., Routine Patch Applied 08/02/2024 5:10 PM EDT 1 patch 19- Surgical Site losartan (Cozaar) tablet 50 mg 50 mg, Oral, DAILY, First dose on Wed08/02/24 at 0900, Until Discontinued, Hold for SBP <100, Routine Given 08/03/2024 8:23 AM EDT 50 mg Given 08/02/2024 8:26 AM EDT 50 mg magnesium citrate oral liquid 296 mL 296 mL, Oral, ONCE PRN, 1 dose, Starting on Wed08/01/24 at 1359, Until Angelita 08/03/24 at 1845, Constipation, Give if no BM 2 hr after previous interventions. If 2 hr after mag citrate there is still no BM, see order for tap water enema, if placed. Give concomitantly with any scheduled bowel medications ordered., Routine metoprolol succinate XL (Toprol-XL) tablet 25 mg 25 mg, Oral, DAILY, First dose on Wed08/02/24 at 0900, Until Discontinued, DO NOT CRUSH OR OPEN, hold for SBP <100, Routine Given 08/03/2024 8:23 AM EDT 25 mg Given 08/02/2024 8:26 AM EDT 25 mg oxyCODONE (Roxicodone) tablet 10 mg 10 mg, Oral, EVERY 4 HOURS PRN, Starting on Wed08/01/24 at 1328, Until Angelita 08/03/24 at 1845, Pain, severe pain (7-10), If multiple routes of administration ordered, oral route first line., Recovery (Recovery-Hospital Unit), Routine Given 08/03/2024 8:22 AM EDT 10 mg Given 08/03/2024 3:08 AM EDT 10 mg Given 08/02/2024 8:12 PM EDT 10 mg oxyCODONE (Roxicodone) tablet 5 mg 5 mg, Oral, EVERY 4 HOURS PRN, Starting on Wed08/01/24 at 1328, Until Wed08/03/24 at 1845, Pain, moderate pain (4-6), For adults, may give in place of other agent(s) ordered for pain (7-10) at patient request. If multiple routes of administration ordered, oral route first line., Recovery (Recovery-Hospital Unit), Routine oxyCODONE (Roxicodone) tablet 5 mg 5 mg, Oral, EVERY 4 HOURS PRN, Starting on Wed08/01/24 at 1328, Until Wed08/03/24 at 1845, Pain, Breakthrough pain rescue dose, For moderate or severe pain (4-10) unrelieved at least 60 minutes after initial PRN dose was administered Max 3 doses/24 hours. If pain still unrelieved after 3rd rescue dose within 24 hours, contact provider. If multiple routes of administration ordered, oral route first line., Recovery (Recovery-Hospital Unit), Routine Given 08/03/2024 5:55 AM EDT 5 mg Given 08/02/2024 10:11 PM EDT 5 mg Given 08/02/2024 2:50 PM EDT 5 mg pantoprazole EC (Protonix) tablet 40 mg 40 mg, Oral, DAILY, First dose on Wed08/01/24 at 1415, Until Discontinued, DO NOT CRUSH OR OPEN Given 08/03/2024 8:23 AM EDT 40 mg Given 08/02/2024 8:26 AM EDT 40 mg Given 08/01/2024 2:37 PM EDT 40 mg polyethylene glycoL (Miralax) packet 17 g 17 g, Oral, DAILY PRN, Starting on Wed08/01/24 at 1359, Until Wed08/03/24 at 1845, Constipation, Give if no BM within last 24 hr. Give concomitantly with any scheduled bowel medications ordered. , Routine protriptyline (Vivactil) tablet 10 mg 10 mg, Oral, EVERY 8 HOURS, First dose on Wed08/01/24 at 1445, Until Discontinued, Routine Given 08/03/2024 3:19 PM EDT 10 mg Given 08/03/2024 5:55 AM EDT 10 mg Given 08/02/2024 10:09 PM EDT 10 mg rivaroxaban (Xarelto) tablet 20 mg 20 mg, Oral, DAILY, First dose on 08/03/24 at 1200, Until Discontinued, Routine, rivaroxaban (Xarelto) Indication: Other Indication, Please document indication (see Lexicomp for detailed information on dosages and warnings/precautions): s/p fempop bypass Given 08/03/2024 1:03 PM EDT 20 mg senna-docusate (Pericolace) 8.6-50 mg per tablet 2 tablet 2 tablet, Oral, 2 TIMES DAILY, First dose on Wed08/01/24 at 1415, Until Discontinued, Hold for loose stool. , Routine Given 08/03/2024 8:23 AM EDT 2 tablets Given 08/02/2024 8:26 AM EDT 2 tablets Given 08/01/2024 2:38 PM EDT 2 tablets sodium chloride 0.9 % (flush) (BD PosiFlush Normal Saline 0.9) flush 5 mL 5 mL, Intravenous, 2 TIMES DAILY, First dose on Wed08/01/24 at 1415, Until Discontinued, Recovery (Recovery-Hospital Unit), Routine Given 08/03/2024 8:22 AM EDT 5 mLs Given 08/02/2024 8:18 PM EDT 20 mLs Given 08/01/2024 9:13 PM EDT 5 mLs thrombin (Bovine) (Thrombinar) kit PRN, Starting on Wed08/01/24 at 0939, Until Wed08/01/24 at 1353, Intra-Operative (Intra-Procedure) Given 08/01/2024 10:39 AM EDT 20,000 Units 19- Surgical Site Given 08/01/2024 9:39 AM EDT 40,000 Units 19- Surgical Site vancomycin (Vancocin) injection PRN, Starting on Wed08/01/24 at 1033, Until Wed08/01/24 at 1353, Intra-Operative (Intra-Procedure), Routine Given 08/01/2024 10:33 AM EDT 1 g 19- Surgical Site documented in this encounter Active and Recently Administered Medications Times are shown in EDT. Scheduled Medication Order 08/01/2024 08/02/2024 08/03/2024 acetaminophen (Tylenol) tablet 975 mg 975 mg, Oral, EVERY 6 HOURS SCHEDULED, First dose on Wed08/01/24 at 1415, Until Discontinued, When ordered for pain, acetaminophen should be given even when other ordered pain medications are indicated. Maximum dose of acetaminophen is 4,000 mg from all sources in 24 hours. , Routine 1438 (Given - Provider: Jeramy Escobar RN)1758 (Given - Provider: Jeramy Escobar RN) 0302 (Given - Provider: Lauren Zavala, DAVID)0826 (Given - Provider: Jeramy Escobar RN)1450 (Given - Provider: Jeramy Escobar RN)2011 (Given - Provider: Lauren Zavala RN) 0308 (Given - Provider: Lauren Zavala RN)0822 (Given - Provider: Jeramy Escobar RN)1518 (Given - Provider: Jeramy Escobar RN) aspirin EC tablet 81 mg 81 mg, Oral, DAILY, First dose on Wed08/01/24 at 1415, Until Discontinued, Routine 1438 (Given - Provider: Jeramy Escobar RN) 0826 (Given - Provider: Jeramy Escobar RN) 0822 (Given - Provider: Jeramy Escobar RN) atorvastatin (Lipitor) tablet 80 mg 80 mg, Oral, EVERY EVENING, First dose on Wed08/01/24 at 1700, Until Discontinued, Routine 1758 (Given - Provider: Jeramy Escobar RN) 1709 (Given - Provider: Jeramy Escobar RN) heparin (porcine) (5,000 units/1 mL) subcutaneous injection 5,000 Units (CANCELED) 5,000 Units, Subcutaneous, EVERY 8 HOURS SCHEDULED, First dose on Wed08/01/24 at 1415, Until Discontinued, Routine 1437 (Given - Provider: Jeramy Esocbar RN)2113 (Given - Provider: Isabel Smart RN) 0551 (Given - Provider: Lauren Zavala RN)1450 (Given - Provider: Jeramy Escobar RN)2209 (Given - Provider: Lauren Zavala RN) 0555 (Given - Provider: Lauren Zavala, DAVID) insulin glargine-ygfn (Semglee) (100 unit/mL) subcutaneous injection vial 50 Units 50 Units, Subcutaneous, NIGHTLY, First dose on Wed08/01/24 at 2100, Until Discontinued, Routine 2106 (Given - Provider: Lauren Zavala, RN) 2010 (Given - Provider: Lauren Zavala, RN) insulin lispro (HumaLOG;Admelog) (100 unit/mL) subcutaneous injection vial 0-19 Units 0-19 Units, Subcutaneous, 3 TIMES DAILY WITH MEALS, First dose on Wed08/03/24 at 0800, Until Discontinued, MEAL ASSOCIATED Give 1 unit: 4 grams of carbohydrate Hold if not eating or if BG less than 70 mg/dL., Routine 822 (Given - Provider: Jeramy Escobar RN)1302 (Given - Provider: Jeramy Escobar RN) insulin lispro (HumaLOG;Admelog) (100 unit/mL) subcutaneous injection vial 1-6 Units (CANCELED) 1-6 Units, Subcutaneous, EVERY 4 HOURS SCHEDULED, First dose on Wed08/01/24 at 1600, Until Discontinued, CORRECTION BOLUS [1-6 Units] Moderate [...] than 240 mg/dL in 2 hours., Routine 1637 (Given - Provider: Jeramy Escobar RN)2058 (Given - Provider: Lauren Zavala, DAVID) insulin lispro (HumaLOG;Admelog) (100 unit/mL) subcutaneous injection vial 1-6 Units (CANCELED) 1-6 Units, Subcutaneous, EVERY 4 HOURS SCHEDULED, First dose (after last modification) on 9/25/24 at 0000, Until Discontinued, CORRECTION BOLUS [1-6 [...] of greater than 240 mg/dL in 2 hours. , Routine 0000 (Not Given - Provider: Lauren Zavala RN - Reason: Order parameters not met)0400 (Given - Provider: Lauren Zavala RN)0828 (Given - Provider: Jeramy Escobar, DAVID)1246 (Given - Provider: Jeramy Escobar, DAVID)1718 (Given - Provider: Jeramy Escobar, DAVID) insulin lispro (HumaLOG;Admelog) (100 unit/mL) subcutaneous injection vial 1-6 Units(Linked Group 1) 1-6 Units, Subcutaneous, EVERY 4 HOURS SCHEDULED, First dose (after last modification) on Wed08/02/24 at 2000, Until Discontinued, CORRECTION BOLUS [1-11 Units] Custom [...] 240 mg/dL in 2 hours , Routine 2010 (Given - Provider: Lauren Zavala RN)2307 (Given - Provider: Lauren Zavala RN) 0405 (Given - Provider: Lauren Zavala RN)0800 (Hold - Provider: Jeramy Escobar RN - Reason: Contraindicated)1200 (Not Given - Provider: Jeramy Escobar RN - Reason: Contraindicated)1600 (Due) lactated Ringers 1,000 mL IV bolus (COMPLETED) at 250 mL/hr, Intravenous, ONCE, 1 dose, On Wed08/01/24 at 1445 1446 (New Bag - Provider: Jeramy Escobar RN)1846 (Stopped - Provider: Jeramy Escobar RN) lidocaine (Lidoderm) 5% patch 1 patch 1 patch, Transdermal, Administer over 12 Hours, EVERY 24 HOURS, First dose on Wed08/02/24 at 1800, Until Discontinued, Apply patch(es) for 12 hours, and then remove for 12 hours., Routine 1710 (Patch Applied - Provider: Jeramy Escobar RN) 0510 (Patch Removed - Provider: Lauren Zavala RN) losartan (Cozaar) tablet 50 mg 50 mg, Oral, DAILY, First dose on Wed08/02/24 at 0900, Until Discontinued, Hold for SBP <100, Routine 825 (Given - Provider: Jeramy Escobar RN) 08 (Given - Provider: Jeramy Escobar RN) metoprolol succinate XL (Toprol-XL) tablet 25 mg 25 mg, Oral, DAILY, First dose on Wed08/02/24 at 0900, Until Discontinued, DO NOT CRUSH OR OPEN, hold for SBP <100, Routine 825 (Given - Provider: Jeramy Escobar RN) 08 (Given - Provider: Jeramy Escobar RN) pantoprazole EC (Protonix) tablet 40 mg 40 mg, Oral, DAILY, First dose on Wed08/01/24 at 1415, Until Discontinued, DO NOT CRUSH OR OPEN 1437 (Given - Provider: Jeramy Escobar RN) 0826 (Given - Provider: Jeramy Escobar RN) 0823 (Given - Provider: Jeramy Escobar RN) potassium chloride ER (Klor-Con M) crystal tablet 40 mEq (COMPLETED) 40 mEq, Oral, ONCE, 1 dose, On Wed08/02/24 at 0615, May dissolve if unable to swallow ER tablet. potassium chloride ER particle/crystal tablets (Klor-Con M) may be broken in half and each half swallowed separately. Tablets can be dissolved in ~4 ounces of water; allow ~2 minutes to dissolve, stir well and drink immediately. Do not crush, chew, or suck on tablet., Routine 0555 (Given - Provider: Lauren Zavala RN) protriptyline (Vivactil) tablet 10 mg 10 mg, Oral, EVERY 8 HOURS, First dose on Wed08/01/24 at 1445, Until Discontinued, Routine 1445 (Hold - Provider: Jeramy Escobar RN - Reason: Contraindicated)2240 (Given - Provider: Lauren Zavala RN) 0555 (Given - Provider: Lauren Zavala RN)1450 (Given - Provider: Jeramy Escobar RN)2209 (Given - Provider: Lauren Zavala RN) 0555 (Given - Provider: Lauren Zavala RN)1519 (Given - Provider: Jeramy Escobar RN) rivaroxaban (Xarelto) tablet 20 mg 20 mg, Oral, DAILY, First dose on Wed08/03/24 at 1200, Until Discontinued, Routine, rivaroxaban (Xarelto) Indication: Other Indication, Please document indication (see Lexicomp for detailed information on dosages and warnings/precautions): s/p fempop bypass 1303 (Given - Provider: Jeramy Escobar RN) senna-docusate (Pericolace) 8.6-50 mg per tablet 2 tablet 2 tablet, Oral, 2 TIMES DAILY, First dose on Wed08/01/24 at 1415, Until Discontinued, Hold for loose stool. , Routine 1438 (Given - Provider: Jeramy Escobar RN)2100 (Not Given - Provider: Lauren Zavala RN - Reason: Patient/family refused) 0826 (Given - Provider: Jeramy Escobar, RN)2099 (Not Given - Provider: Lauren Zavlaa RN - Reason: Patient/family refused) 0823 (Given - Provider: Jeramy Escobar, DAVID) sodium chloride 0.9 % (flush) (BD PosiFlush Normal Saline 0.9) flush 5 mL 5 mL, Intravenous, 2 TIMES DAILY, First dose on Wed08/01/24 at 1415, Until Discontinued, Recovery (Recovery-Hospital Unit), Routine 1446 (Given - Provider: Jeramy Escobar, RN)211 (Given - Provider: Isabel Smart, RN) 09 (Not Given - Provider: Jeramy Escobar, DAVID - Reason: Contraindicated)2017 (Given - Provider: Lauren Zavala RN) 08 (Given - Provider: Jeramy Escobar RN) Continuous Medication Order 08/01/2024 08/02/2024 08/03/2024 lactated ringers infusion (CANCELED) 1,000 mL, at 100 mL/hr, Intravenous, CONTINUOUS, Starting on Wed08/01/24 at 0630, Until Wed08/01/24 at 1327, Day of Surgery (Day of Procedure) 0638 (New Bag - Provider: Windy Zaragoza RN) PRN Medication Order 08/01/2024 08/02/2024 08/03/2024 bisacodyL (Dulcolax) suppository 10 mg(Linked Group 2) 10 mg, Rectal, DAILY PRN, Starting on Wed08/01/24 at 1359, Until Angelita 08/03/24 at 1845, Constipation, Give if no BM within last 24 hr and rectal fullness is reported or assessed. Give concomitantly with any scheduled bowel medications ordered. , Routine bisacodyL EC (Dulcolax) tablet 10 mg(Linked Group 2) 10 mg, Oral, 2 TIMES DAILY PRN, Starting on Wed08/01/24 at 1359, Until Angelita 08/03/24 at 1845, Constipation, Give if no BM after 24 hr after prior interventions. BM expected in 6-8 hours. If BM desired sooner, use next ordered agent. Give concomitantly with any scheduled bowel medications ordered., Routine dextrose 10% infusion(Linked Group 3) 250 mL, at 1,000 mL/hr, Intravenous, EVERY 15 MIN PRN, Starting on Wed08/01/24 at 1359, Until Angeliat 08/03/24 at 1845, For BG 50-70 mg/dL: Oral treatment preferred: [...] insulin orders before administering the next dose. gelatin adsorbable 100 (Gelfoam) sponge (CANCELED) PRN, Starting on Wed08/01/24 at 0938, Until Wed08/01/24 at 1353, Intra-Operative (Intra-Procedure), Routine 0938 (Given - Provider: Lisette Maldonado MD - Comment: mixed with thrombin 40k)1039 (Given - Provider: Lisette Maldonado MD - Comment: mixed with 20k thrombin) glucagon (Glucagen) (1 mg/mL) injection solution 1 mg(Linked Group 3) 1 mg, Intramuscular, EVERY 15 MIN PRN, Starting on Wed08/01/24 at 1359, Until Angelita 08/03/24 at 1845, Low blood sugar, For BG 50-70 mg/dL: [...] Routine glucose (Glutose) 40% oral geL(Linked Group 3) 15-30 g of glucose, Buccal, EVERY 15 MIN PRN, Starting on Wed08/01/24 at 1359, Until Wed08/03/24 at 1845, Low blood sugar, For BG 50-70 mg/dL: [...] tube = 37.5 grams.), Routine HYDROmorphone (Dilaudid) (0.2 mg/1 mL) injection syringe 0.2 mg 0.2 mg, Intravenous, ONCE PRN, 3 doses, Starting on Wed08/01/24 at 1359, Until Wed08/03/24 at 1845, Pain, breakthrough pain, For severe pain of 7-10 unrelieved at least 60 minutes after oxyCODONE oral rescue dose. If pain still unrelieved after HYDROmorphone dose, contact provider., Recovery (Recovery-Hospital Unit), Routine insulin lispro (HumaLOG;Admelog) (100 unit/mL) subcutaneous injection vial 0-19 Units 0-19 Units, Subcutaneous, 3 TIMES DAILY PRN, Starting on Wed08/02/24 at 1857, Until Wed08/03/24 at 1845, with snacks, SNACK ASSOCIATED Give 1 unit for every 4 grams carbohydrate. Hold if not eating or if BG less than 70 mg/dL., Routine lactulose (Chronulac) (0.67 gram/mL) oral liquid 20 g(Linked Group 2) 20 g, Oral, DAILY PRN, Starting on Wed08/01/24 at 1359, Until Wed08/03/24 at 1845, Constipation, Give if no BM 24 hr after prior interventions or if BM is desired within 2 hr. Give concomitantly with any scheduled bowel medications ordered, Routine lactulose (Chronulac) (0.67 gram/mL) oral liquid 20 g(Linked Group 2) 20 g, Oral, DAILY PRN, Starting on Wed08/01/24 at 1359, Until Wed08/03/24 at 1845, Constipation, Give an additional (2nd) dose of lactulose 2 hr after 1st dose if still no BM. Disregard if 1st dose of lactulose not ordered. Give concomitantly with any scheduled bowel medications ordered. , Routine lidocaine (Xylocaine) 1% (10 mg/mL) injection 3 mg 3 mg (0.3 mL), Subcutaneous, ONCE PRN, 1 dose, Starting on Wed08/01/24 at 1359, Until Wed08/03/24 at 1845, for discomfort with PIV insertion, Recovery (Recovery-Hospital Unit), Routine magnesium citrate oral liquid 296 mL(Linked Group 2) 296 mL, Oral, ONCE PRN, 1 dose, Starting on Wed08/01/24 at 1359, Until Angelita 08/03/24 at 1845, Constipation, Give if no BM 2 hr after previous interventions. If 2 hr after mag citrate there is still no BM, see order for tap water enema, if placed. Give concomitantly with any scheduled bowel medications ordered., Routine naloxone (Narcan) (0.4 mg/mL) injection 0.2 mg 0.2 mg, Intravenous, EVERY 2 MIN PRN, Starting on Wed08/01/24 at 1359, Until Angelita 08/03/24 at 1845, Opioid Reversal, Naloxone (NARCAN) 0.2 mg Intravenous PRN RESP RATE less than 10 OR SEDATION greater than or equal to 3, Clinician Dir. IF PATIENT ON OPIOIDS NEEDED FOR RESPIRATORY RATE LESS THAN 10 OR PASERO 4 OR MINIMALLY RESPONSIVE TO VERBAL OR PHYSICAL STIMULATION, Recovery (Recovery-Hospital Unit), Routine oxyCODONE (Roxicodone) tablet 10 mg(Linked Group 4) 10 mg, Oral, EVERY 4 HOURS PRN, Starting on Wed08/01/24 at 1328, Until Angelita 08/03/24 at 1845, Pain, severe pain (7-10), If multiple routes of administration ordered, oral route first line., Recovery (Recovery-Hospital Unit), Routine 1331 (Given - Provider: Shannon Haney RN)7 (Given - Provider: Lauren Zavala RN) 301 (Given - Provider: Lauren Zavala RN)08 (Given - Provider: Jeramy Escobar, DAVID)123 (Given - Provider: Jeramy Escobar, RN)2011 (Given - Provider: Lauren Zavala RN) 030 (Given - Provider: Lauren Zavala RN)08 (Given - Provider: Jeramy Escobar, DAVID) oxyCODONE (Roxicodone) tablet 5 mg(Linked Group 4) 5 mg, Oral, EVERY 4 HOURS PRN, Starting on Wed08/01/24 at 1328, Until Angelita 08/03/24 at 1845, Pain, moderate pain (4-6), For adults, may give in place of other agent(s) ordered for pain (7-10) at patient request. If multiple routes of administration ordered, oral route first line., Recovery (Recovery-Hospital Unit), Routine 1331 (See Alternative - Provider: Shannon Haney RN)2127 (See Alternative - Provider: Lauren Zavala, DAVID) 0302 (See Alternative - Provider: Lauren Zavala RN)0825 (See Alternative - Provider: Jeramy Escobar RN)1238 (See Alternative - Provider: Jeramy Escobar, DAVID)2011 (See Alternative - Provider: Lauren Zavala, DAVID) 0308 (See Alternative - Provider: Lauren Zavala RN)0822 (See Alternative - Provider: Jeramy Escobar RN) oxyCODONE (Roxicodone) tablet 5 mg 5 mg, Oral, EVERY 4 HOURS PRN, Starting on Wed08/01/24 at 1328, Until Angelita 08/03/24 at 1845, Pain, Breakthrough pain rescue dose, For moderate or severe pain (4-10) unrelieved at least 60 minutes after initial PRN dose was administered Max 3 doses/24 hours. If pain still unrelieved after 3rd rescue dose within 24 hours, contact provider. If multiple routes of administration ordered, oral route first line., Recovery (Recovery-Hospital Unit), Routine 1437 (Given - Provider: Jeramy Escobar RN)2242 (Given - Provider: Lauren Zavala RN) 0551 (Given - Provider: Lauren Zavala RN)1450 (Given - Provider: Jeramy Escobar RN)2211 (Given - Provider: Lauren Zavala, DAVID) 0555 (Given - Provider: Lauren Zavala, DAVID) polyethylene glycoL (Miralax) packet 17 g(Linked Group 2) 17 g, Oral, DAILY PRN, Starting on Wed08/01/24 at 1359, Until Angelita 08/03/24 at 1845, Constipation, Give if no BM within last 24 hr. Give concomitantly with any scheduled bowel medications ordered. , Routine sodium chloride 0.9 % (flush) (BD PosiFlush Normal Saline 0.9) flush 5-20 mL 5-20 mL, Intravenous, EVERY 1 MIN PRN, Starting on Wed08/01/24 at 1359, Until Angelita 08/03/24 at 1845, flush, Flush pertains to all indwelling lines. Flush per protocol found in the job aid using the link provided on this medication record., Recovery (Recovery-Hospital Unit), Routine thrombin (Bovine) (Thrombinar) kit (CANCELED) PRN, Starting on Wed08/01/24 at 0939, Until Wed08/01/24 at 1353, Intra-Operative (Intra-Procedure) 0939 (Given - Provider: Lisette Maldonado MD - Comment: mixed with gelfoam)1039 (Given - Provider: Lisette Maldonado MD - Comment: mixed with gelfoam) vancomycin (Vancocin) injection (CANCELED) PRN, Starting on Wed08/01/24 at 1033, Until Wed08/01/24 at 1353, Intra-Operative (Intra-Procedure), Routine 1033 (Given - Provider: Lisette Maldonado MD - Comment: mixed into stimulan bead paste. beads deposited into wound) Linked Groups Order Group 1: POCT Fingerstick Glucose (CANCELED) Routine, EVERY 4 HOURS, First occurrence on Wed08/02/24 at 1999, Until Specified, Consider choosing EVERY 4 HOURS as frequency for: - Type 1 Diabetes - At least 24 hours after coming off an insulin drip - At least 24 hours after admission for DKA - Hypoglycemia unawareness - Patients who are otherwise unstable Select the same frequency for the correction bolus insulin order And insulin lispro (HumaLOG;Admelog) (100 unit/mL) subcutaneous injection vial 1-6 UnitsJump to med 1-6 Units, Subcutaneous, EVERY 4 HOURS SCHEDULED, First dose (after last modification) on Wed08/02/24 at 1999, Until Discontinued, CORRECTION BOLUS [1-11 Units] Custom [...] in 2 hours , Routine Group 2: polyethylene glycoL (Miralax) packet 17 gJump to med 17 g, Oral, DAILY PRN, Starting on Wed08/01/24 at 1359, Until Wed08/03/24 at 1845, Constipation, Give if no BM within last 24 hr. Give concomitantly with any scheduled bowel medications ordered. , Routine And bisacodyL (Dulcolax) suppository 10 mgJump to med 10 mg, Rectal, DAILY PRN, Starting on Wed08/01/24 at 1359, Until Wed08/03/24 at 1845, Constipation, Give if no BM within last 24 hr and rectal fullness is reported or assessed. Give concomitantly with any scheduled bowel medications ordered. , Routine And bisacodyL EC (Dulcolax) tablet 10 mgJump to med 10 mg, Oral, 2 TIMES DAILY PRN, Starting on Wed08/01/24 at 1359, Until Angelita 08/03/24 at 1845, Constipation, Give if no BM after 24 hr after prior interventions. BM expected in 6-8 hours. If BM desired sooner, use next ordered agent. Give concomitantly with any scheduled bowel medications ordered., Routine And lactulose (Chronulac) (0.67 gram/mL) oral liquid 20 gJump to med 20 g, Oral, DAILY PRN, Starting on Wed08/01/24 at 1359, Until Angelita 08/03/24 at 1845, Constipation, Give if no BM 24 hr after prior interventions or if BM is desired within 2 hr. Give concomitantly with any scheduled bowel medications ordered, Routine And lactulose (Chronulac) (0.67 gram/mL) oral liquid 20 gJump to med 20 g, Oral, DAILY PRN, Starting on Wed08/01/24 at 1359, Until Angelita 08/03/24 at 1845, Constipation, Give an additional (2nd) dose of lactulose 2 hr after 1st dose if still no BM. Disregard if 1st dose of lactulose not ordered. Give concomitantly with any scheduled bowel medications ordered. , Routine And magnesium citrate oral liquid 296 mLJump to med 296 mL, Oral, ONCE PRN, 1 dose, Starting on Wed08/01/24 at 1359, Until Angelita 08/03/24 at 1845, Constipation, Give if no BM 2 hr after previous interventions. If 2 hr after mag citrate there is still no BM, see order for tap water enema, if placed. Give concomitantly with any scheduled bowel medications ordered., Routine And Tap water enema (CANCELED) Routine, DAILY PRN, Starting on Wed08/01/24 at 1359, Until Specified, Give if no BM in at least 24 hr and all other ordered bowel regimen medications have been unsuccessful. Give concomitantly with any scheduled bowel medications ordered. Group 3: glucose (Glutose) 40% oral geLJump to med 15-30 g of glucose, Buccal, EVERY 15 MIN PRN, Starting on Wed08/01/24 at 1359, Until Angelita 08/03/24 at 1845, Low blood sugar, For BG 50-70 mg/dL: [...] Intravenous, EVERY 15 MIN PRN, Starting on Wed08/01/24 at 1359, Until Angelita 08/03/24 at 1845, For BG 50-70 mg/dL: Oral treatment preferred: [...] Intramuscular, EVERY 15 MIN PRN, Starting on Wed08/01/24 at 1359, Until Angelita 08/03/24 at 1845, Low blood sugar, For BG 50-70 mg/dL: [...] administering the next dose. , Routine Group 4: oxyCODONE (Roxicodone) tablet 5 mgJump to med 5 mg, Oral, EVERY 4 HOURS PRN, Starting on Wed08/01/24 at 1328, Until Angelita 08/03/24 at 1845, Pain, moderate pain (4-6), For adults, may give in place of other agent(s) ordered for pain (7-10) at patient request. If multiple routes of administration ordered, oral route first line., Recovery (Recovery-Hospital Unit), Routine Or oxyCODONE (Roxicodone) tablet 10 mgJump to med 10 mg, Oral, EVERY 4 HOURS PRN, Starting on Wed08/01/24 at 1328, Until Angelita 08/03/24 at 1845, Pain, severe pain (7-10), If multiple routes of administration ordered, oral route first line., Recovery (Recovery-Hospital Unit), Routine documented in this encounter Care Teams Cook House Supervisor Relationship Specialty Start Date End Date None None PCP - General 05/27/24 09/17/24 documented as of this encounter
--- OUTSIDE RECORDS SUMMARY | 2024-09-20 08:21 | XMS_ITS | Encounter Summary ---
Author Organization [facility] Address [facility] [place] [address] Care Team Providers Care Substation Operator Helper Name Role Phone None Primary Care Provider Unavailabl e Encounter Details Date Type Department Care Team (Late st Contact Info) Description 08/17/2024 3:30 PM EDT Office [place] [address] Viviana Resendiz, [facility] [place] [address] PAD (peripheral artery disease); Encounter for post surgical wound check; Status post amputation of lesser toe of left foot Social History Tobacco Use Types Packs/Day Years Used Date Smoking Tobacco: Every Day Cigarettes 25 Started: 12/28/1986; Last attempted to quit: 12/28/2011 Smokeless Tobacco: Never Alcohol Use Standard Drinks/Week Comments No 0 (1 standard drink = 0.6 oz pur e alcohol) [facility] Utilities Answer Date Recorded In the past 12 months has e [employer], gas, oil, or water [employer] threatened to shut off services in your [...] living in a correction (including now)? No 08/02/2024 DH IPV Inpatient [...] Sign Reading Time Taken Comments Blood Pressure 133/86 08/17/2024 3:33 PM EDT Pulse 104 08/17/2024 3:33 PM EDT Temperature - - Respiratory Rate - - Oxygen Saturation - - Inhaled Oxygen Concentration - - Weight 99.8 kg (220 lb) 08/17/2024 3:33 PM EDT r eported Height 179.1 cm (5' 10.5) 08/17/2024 3:33 PM ED T reported Body Mass Index 31.12 08/17/2024 3:33 PM EDT documented in this encounter Progress Notes * Viviana Resendiz, FRUIT DISTRIBUTOR - 08/17/2024 3:30 PM EDT Images from the original note were not included. Vascular Follow-Up Reason for Visit: Lux Dixon Florencio is a 49 y.o. male presenting for wound check. HPI: 49 y.o. male with PMH: HTN, HLD, NSTEMI, CAD s/p CABG (12/2011), DM, BMI 31.83, PAD s/p L iliofem endart and L fem-BK pop bypass (08/01/2024). Mr. Dixon presents to clinic for wound check of his left groin incision, left first toe ulcer, and left second toe amputation. He denies signs/symptoms of infection: Fever, chills.he denies purulence, warmth, erythema, edema, pain of the wounds. He denies claudication, rest pain, CP, SOB, stroke/TIA symptoms. He continues to take aspirin, Xarelto, statin daily. He has former cigarette use, quit in 2011. Prior Vascular Hx: 08/01/2024: Left iliofemoral endarterectomy, Left femoral to below-knee popliteal artery bypass with 7mm ringed PTFE ([place]) Atherosclerotic RF: DM (Y) HTN (Y) CAD (Y) CHF (N) HLD (Y) CVA (N) Tobacco (N) Problem List: Patient Active Problem List Diagnosis Code HTN (hypertension) I10 Hyperlipidemia E78.5 Depression F32.A Narcolepsy G47.419 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 (SVG to PDA closed 08/2013) I25.10 NSTEMI (non-ST elevated myocardial infarction) I21.4 Diabetes mellitus E11.9 Obesity E66.9 Critical limb ischemia of left lower extremity I70.222 Peripheral artery disease I73.9 PAD (peripheral artery disease) I73.9 Medications: Current Outpatient Medications on File Prior to Visit Medication Sig Dispense Refill senna-docusate (Pericolace) 8.6-50 mg Tablet Take 2 tablets by mouth 2 times daily. 60 tablet 11 freestyle lite strips 1 strip by Other route 3 times daily. Use as instructed Indications: [id number] each 1 FreeStyle Lancets 28 gauge Misc [...] 1 insulin needles, disposable, 32 gauge x /32 Needle Inject 1 each subcutaneously daily. Indications: [...] type 2 diabetes mellitus 15 mL 0 metFORMIN (Glucophage) 500 mg tablet Take 2 tablets by mouth 2 times daily. 120 tablet 0 dulaglutide (Trulicity) 1.5 mg/0.5 mL Pen Injector Inject 0.5 mLs subcutaneously once a week. Indications: type 2 diabetes mellitus 2 mL 11 empagliflozin (Jardiance) 25 mg tablet Take 1 tablet by mouth daily. 30 tablet 0 aspirin EC 81 mg EC (DR) tablet Take 1 tablet by mouth daily. 30 tablet 3 omeprazole 20 mg Tablet,Rapid Dissolve, DR Take by mouth Daily at Noon. nitroGLYcerin (NITROSTAT) 0.[address] 1 tablet under the tongue daily as needed for Chest pain. 25 tablet 1 Lancets (FREESTYLE LANCETS) Misc by Other [...] to Tyelnol). (Patient not taking: Reported on 08/17/2024) 10 tablet 0 No current facility-administered medications on file prior to visit. Review of Systems: All other ROS negative except as noted in HPI. Physical Exam: BP 133/86 (BP Location (NBP): Left arm, Patient Position: Sitting, BP Cuff Sizes: Adult (25-34 cm)) Pulse (!) 104 Ht 179.1 cm (5' 10.5) Comment: reported Wt 99.8 kg (220 lb) Comment: reported BMI 31.12 kg/m?? GEN: Alert and appears stated age. Cooperative. In NAD. HEENT: Normocephalic and atraumatic. CV: RRR. Pulm: Respiratory rate and effort WNL. Abd: No palpable aortic pulse or abdominal mass. Soft, non-distended, non-tender to palpation. Skin: Color, texture, turgor normal. No rashes or lesions. Neuro: No gross sensory or motor abnormality. Extremities: Bilateral UE and LE warm and pink. No edema. Vascular Exam: Palpable L femoral and pedal pulses. Left groin wound healing well, no signs or symptoms of infection. Left first toe ulcer superficial, no drainage, no signs or symptoms of infection. Left second toe amputation wound with dry scab and sutures intact. No signs/symptoms of infection Left fifth toe with dry eschar. No signs or symptoms of infection Labs: No results found for this or any previous visit (from the past 24 hour(s)). Studies: None today. Assessment/Plan: 49 y.o. male with PMH of HTN, HLD, NSTEMI, CAD s/p CABG (12/2011), DM, BMI 31.83, PAD s/p L iliofem endart and L fem-BK pop bypass (08/01/2024). Mr. Dixon is doing well. His wounds have no signs or symptoms of infection. We will continue to paint the wounds with Betadine on a daily basis and I advised the patient to continue wearing the offloading shoe. He is taking his medications consistently and is not smoking. Plan: - Continue to paint wounds with Betadine daily - Follow-up with Dr. Dickson and studies on 08/28/2024 - Monitor for signs/symptoms of infection, contact clinic with any questions/concerns prior to nextappointment. Future Appointments Date Time Provider Department Center 08/28/2024 1:00 PM Erick Jama [place] [facility] 08/28/2024 2:00 PM Marko Dickson MD [facility] Viviana Resendiz APRN Department of Vascular Surgery documented in this encounter Plan of Treatment Not on file documented as of this encounter Visit Diagnoses Diagnosis PAD (peripheral artery disease) Peripheral vascular disease, unspecified Encounter for post surgical wound check Status post amputation of lesser toe of left foot documented in this encounter Care Teams Substation Operator Helper Relationship Specialty Start Date End Date None None PCP - General 05/27/24 09/17/24 documented as of this encounter
--- OUTSIDE RECORDS SUMMARY | 2024-09-20 08:21 | XMS_ITS | Encounter Summary ---
Author Organization [facility] Address [facility] [place] [address] Care Team Providers Care Miter Saw Operator Name Role Phone None Primary Care Provider Unavailabl e Reason for Referral * Diagnostic Test (Routine) - New Request Specialty Diagnoses / Procedures Referred By Bharathac t Referred To Contact Diagnoses PAD (peripheral artery disease) Procedures ELEN, legs, multiple levels Marko Dickson MD [facility] [place] [address] [facility] Vascular Lab [address] [place] [phone] Referral ID Status Reason Start Date Expiration Date Visits Requested Visits Authorized [id number] New Request Specialty Service Requested 4 08/28/2025 1 1 * Diagnostic Test (Routine) - Pending Review Specialty Diagnoses / Procedures Referred By Contac t Referred To Contact Diagnoses PAD (peripheral artery disease) Procedures Unilat Bypass Graft Assess Marko Dickson MD [facility] [place] [address] [facility] Vascular Lab [address] [place] [phone] Referral ID Status Reason Start Date Expiration Date Visits Requested Visits Authorized [id number] Pending Review Specialty Service Requested 4 08/28/2025 1 1 Encounter Details Date Type Department Care Team (Late st Contact Info) Description 08/28/2024 2:00 PM EDT Office [place] [address] Marko Dickson MD [facility] [place] [address] PAD (peripheral artery disease) Social History Tobacco Use Types Packs/Day Years Used Date Smoking Tobacco: Every Day Cigarettes 25 Started: 12/28/1986; Last attempted to quit: 12/28/2011 Smokeless Tobacco: Never Alcohol Use Standard Drinks/Week Comments No 0 (1 standard drink = 0.6 oz pur e alcohol) [facility] Utilities Answer Date Recorded In the [...] any time in the past 12 m [facility], were you homeless or living in a [facility] (including now)? No 08/02/2024 [facility] Inpatient Questions Answer Date Recorded Does Anyone [...] Sign Reading Time Taken Comments Blood Pressure 105/75 08/28/2024 1:38 PM EDT Pulse 87 08/28/2024 1:38 PM EDT Temperature - - Respiratory Rate - - Oxygen Saturation - - Inhaled Oxygen Concentration - - Weight 102.1 kg (225 lb) 08/28/2024 1:38 PM EDT Height 179.1 cm (5' 10.5) 08/28/2024 1:38 PM ED T Body Mass Index 31.83 08/28/2024 1:38 PM EDT documented in this encounter Progress Notes * Marko Dickson MD - 08/28/2024 2:00 PM EDT OUTPATIENT VASCULAR SURGERY CONSULTATION Reason for Visit: PAD 07/19/24 L 2nd amp (ERIC) 08/01/24 L SOUND MIXER TEA, L SOUND MIXER to BK pop with PTFE (ERIC) History of Present Illness: Geovanna Araya Jr. is a 49 y.o. male with a history of CAD s/p CABG, DM,obesity, NSTEMI, HTN, HLD, depression, tobacco use, substance use and left foot pain with ulcers who now follows up for his left lower extremity bypass. Patient has been Betadine painting his fifth toe, second toe amputation site, and his first toe. Hehas been using his offloading shoe. And wrapping the foot in Kerlix. He is here with his mom and has no complaints. He remains on his aspirin and Xarelto. He's no interest in cutting back on his tobacco use. Atherosclerotic Risk Factors: (y) DM (y) HTN (y) CAD (n) CHF (y) Hyperlipidemia (n) CVA reports that he has been smoking cigarettes. He started smoking about 37 years ago. He has a 25 pack-year smoking history. He has never used smokeless tobacco. Patient Active Problem List Diagnosis Code HTN (hypertension) I10 Hyperlipidemia E78.5 Depression F32.A Narcolepsy G47.419 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 (SVG to PDA closed 08/2013) I25.10 NSTEMI (non-ST elevated myocardial infarction) I21.4 Diabetes mellitus E11.9 Obesity E66.9 Critical limb ischemia of left lower extremity I70.222 Peripheral artery disease I73.9 PAD (peripheral artery disease) I73.9 Current Outpatient Medications: senna-docusate (Pericolace) 8.6-50 mg Tablet, Take 2 tablets by mouth 2 times daily., Disp: 60 tablet, Rfl: 11 freestyle lite strips, 1 strip by Other route 3 times daily. Use as instructed Indications: diabetes, Disp: 100 each, Rfl: 1 FreeStyle Lancets 28 gauge Misc, 1 each by Other route 3 times daily. Indications: diabetes, Disp: 100 each, Rfl: 0 metFORMIN (Glucophage) 1,000 mg tablet, Take 1 tablet by mouth 2 times daily (with meals). Indications: type 2 diabetes mellitus, Disp: 180 tablet, Rfl: 1 Lantus Solostar U-100 Insulin 100 unit/mL (3 mL) pen, Inject 50 Units subcutaneously daily. Indications: type 2 diabetes mellitus, Disp: 15 mL, Rfl: 1 insulin needles, disposable, 32 gauge x 5/32 Needle, Inject 1 each subcutaneously daily. Indications: diabetes, Disp: 100 each, Rfl: 1 insulin lispro (humaLOG KwikPen) 100 unit/mL Insulin Pen, Inject 5-25 Units subcutaneously 3 times daily (with meals). Indications: type 2 diabetes mellitus, whatver the most affordable version is for his insurance, Disp: 15 mL, Rfl: 1 insulin glargine (Lantus) 100 unit/mL (3 mL) pen, Inject 50 Units subcutaneously nightly., Disp: 3 mL, Rfl: 11 rivaroxaban (Xarelto) 20 mg tablet, Take 1 tablet by mouth daily., Disp: 30 tablet, Rfl: 11 losartan (Cozaar) 50 mg tablet, Take 1 tablet by mouth daily., Disp: 90 tablet, Rfl: 3 metoprolol succinate XL (Toprol-XL) 25 mg ER 24 hr tablet, Take 1 tablet by mouth daily., Disp: 30 tablet, Rfl: 12 atorvastatin (Lipitor) 80 mg tablet, Take 1 tablet by mouth every evening., Disp: 90 tablet, Rfl: 3 insulin lispro (humaLOG KwikPen) 100 unit/mL Insulin Pen, Inject SQ 3 times daily before meals: 10 unit meal dose plus sliding scale 1:20>140 - see insulin chart for instructions Indications: type2 diabetes mellitus, Disp: 15 mL, Rfl: 0 metFORMIN (Glucophage) 500 mg tablet, Take 2 tablets by mouth 2 times daily., Disp: 120 tablet, Rfl: 0 aspirin EC 81 mg EC (DR) tablet, Take 1 tablet by mouth daily., Disp: 30 tablet, Rfl: 3 omeprazole 20 mg Tablet,Rapid Dissolve, DR, Take by mouth Daily at Noon., Disp: , Rfl: Lancets (FREESTYLE LANCETS) Misc, by Other route 2 times daily as needed. 1 box = 100 lancets Indications: prediabetes now s/p CABG, Disp: 100 each, Rfl: 11 acetaminophen (TYLENOL) 500 mg tablet, Take 2 tablets by mouth every 6 hours as needed for Pain., Disp: 30 tablet, Rfl: protriptyline (VIVACTIL) 5 mg tablet, Take 10 mg by mouth every 8 hours., Disp: , Rfl: venlafaxine (EFFEXOR) 75 mg tablet, Take 225 mg by mouth daily., Disp: , Rfl: oxyCODONE (Roxicodone) 5 mg tablet, Take 1 tablet by mouth every 4 hours as needed for Pain (severepain refractory to Tyelnol). (Patient not taking: Reported on 08/28/2024), Disp: 10 tablet, Rfl: 0 dulaglutide (Trulicity) 1.5 mg/0.5 mL Pen Injector, Inject 0.5 mLs subcutaneously once a week. Indications: type 2 diabetes mellitus (Patient not taking: Reported on 08/28/2024), Disp: 2 mL, Rfl: 11 empagliflozin (Jardiance) 25 mg tablet, Take 1 tablet by mouth daily. (Patient not taking: Reportedon 08/28/2024), Disp: 30 tablet, Rfl: 0 nitroGLYcerin (NITROSTAT) 0.4 mg SL tablet, Place 1 tablet under the tongue daily as needed for Chest pain. (Patient not taking: Reported on 08/28/2024), Disp: 25 tablet, Rfl: 1 No Known Allergies Physical Exam: BP 105/75 (BP Location (NBP): Left arm, Patient Position: Sitting, BP Cuff Sizes: Adult (25-34 cm)) Pulse 87 Ht 179.1 cm (5' 10.5) Wt 102.1 kg (225 lb) BMI 31.83 kg/m?? General - NAD, appears stated age Extremities - Warm, pink, no edema, brisk capillary refill, LLE incisions well healed from bypass, left foot sutures still in place from 2nd toe amp, betadine on 1st, 2nd, 5th toes. All appear to be healing well. Labs: Recent Results (from the past 72 hour(s)) Unilat Bypass Graft Assess Result Value Ref Range VB Text Report Department: Vascular Surgery Lab Patient: [id number] (GEOVANNA ARAYA) CPT: 04382 Referring Physician: DAGO SNIDER Phone: Indications: s/p left iliofemoral endarterectomy and left femoral to below-knee popliteal artery bypass with 7 mm ringed PTFE Findings: Left PSV (cm/s) EDV Common Femoral Artery, Mid 173 18 Popliteal Artery, Below Knee 105 10 Left Fem-Pop BK SEGMENT PSV (cm/s) EDV Location Left Inflow Artery (Graft) 173 18 Common Femoral, Left Inflow Anastomosis, Left 78 0 Common Femoral, Left Left Proximal Graft 55 0 Left High Thigh (Graft) 61 0 Left Mid Thigh (Graft) 60 0 Left Low Thigh (Graft) 53 1 Left Near Knee (Graft) 54 0 Left Distal Graft 43 3 Outflow Anastomosis, Left 82 9 Popliteal, Below Knee Left Left Outflow Artery (Graft) 105 10 Popliteal, Below Knee Left Interpretation: Left- Widely patent fem-bk pop bypass graft with no evidence of stenosis. Comparison: No previous study in our vascular lab database for comparison. VB Text Report End of Report Assessment and Plan: 49 y.o. male with LLE CLTI s/p L 2nd toe amp and L SOUND MIXER TEA with SOUND MIXER to BK Pop bypass with PTFE. - cont asa/xarelto - cont off loading shoe, and keeping foot clean and dry - sutures removed from 2nd toe amp site - f/u 6months with repeat duplex US documented in this encounter Plan of Treatment Not on file documented as of this encounter Visit Diagnoses Diagnosis PAD (peripheral artery disease) Peripheral vascular disease, unspecified documented in this encounter Care Teams Miter Saw Operator Relationship Specialty Start Date End Date None None PCP - General 05/27/24 09/17/24 documented as of this encounter
--- OUTSIDE RECORDS SUMMARY | 2024-09-20 08:21 | XMS_ITS | Encounter Summary ---
Author Organization [facility] [place] [address] Care Team Providers Care Jute Bag Clipper Name Role Phone None Primary Care Provider Unavailabl e Encounter Details Date Type Department Care Team (Latest Contact Info) Description 08/17/2024 Travel Social History Tobacco Use Types Packs/Day Years Used Date Smoking Tobacco: Every Day Cigarettes 1 25 Started: 12/28/1986; Last attempted to quit: 12/28/2011 Smokeless Tobacco: Never Alcohol Use Standard Drinks/Week Comments No 0 (1 standard drink = 0.6 oz pur e alcohol) [facility] Utilities Answer Date Recorded [...] any time in the past 12 m [facility], were you homeless or living in a longterm (including now)? No 08/02/2024 [facility] IPV Inpatient [...] on filedocumented in this encounter Care Teams Jute Bag Clipper Relationship Specialty Start Date End Date None None PCP - General 05/27/24 09/17/24 documented as of this encounter
--- OUTSIDE RECORDS SUMMARY | 2024-09-20 08:21 | XMS_ITS | Encounter Summary ---
Author Organization [facility] [place] [address] Care Team Providers Care Gyro Mechanic Name Role Phone None Primary Care Provider Unavailabl e Reason for Referral * Consultation (Urgent) - Closed Specialty Diagnoses / Procedures Referred By Contac t Referred To Contact Cardiology Diagnoses History of heart failure History of non-ST elevation myocardial infarction (NSTEMI) Critical limb ischemia of left lower extremity H/O heart failure and NSTEMI, HFmrEF, Cardiomyopathy, Hx of CABG. H critical limb ischemia of left lower extremity. Vibha Benson APRN [facility] [place] [address] [facility] Cardiology [address] [place] [phone] Referral ID Status Reason Start Date Expiration Date V isits Requested Visits Authorized [id number] Closed Consult, Test & Treat 08/28/2024 08/28/2025 1 1 Encounter Details Date Type Department Care Team (Late st Contact Info) Description 08/28/2024 Orders [place] [address] [facility] [place] [place] [address] Critical limb ischemia of left lower extremity Social History Tobacco Use Types Packs/Day Years Used Date Smoking Tobacco: Every Day Cigarettes 1 25 Started: 12/28/1986; Last attempted to quit: 12/28/2011 Smokeless Tobacco: Never Alcohol Use Standard Drinks/Week Comments No 0 (1 standard drink = 0.6 oz pur e alcohol) [facility] Utilities Answer Date Recorded In [...] any time in the past 12 m [facility], were you homeless or living in a [facility] (including now)? No 08/02/2024 IPV Inpatient Questions [...] as of this encounter Plan of Treatment Scheduled Referrals Name Type Priority Associated Diagnoses Order Schedule Referral to Cardiology Outpatient Referral Urgent Critical limb ischemia of left lower extremity Ordered: 08/28/2024 documented as of this encounter Visit Diagnoses Diagnosis Critical limb ischemia of left lower extremity documented in this encounter Care Teams Gyro Mechanic Relationship Specialty Start Date End Date None None PCP - General 05/27/24 09/17/24 documented as of this encounter
--- OUTSIDE RECORDS SUMMARY | 2024-09-20 08:21 | XMS_ITS | Encounter Summary ---
Author Organization [facility] [place] [address] Care Team Providers Care Motion Picture Camera Operator Name Role Phone None Primary Care Provider Unavailabl e Reason for Referral * Diagnostic Test (Routine) - New Request Specialty Diagnoses / Procedures Referred By Contedy t Referred To Contact Diagnoses Critical limb ischemia of left lower extremity Procedures Unilat Bypass Graft Assess Dago White APRN [facility] [place] [address] [facility] Vascular Lab [address] [place] [address] Referral ID Status Reason Start Date Expiration Date Visits Requested Visits Authorized [id number] New Request Specialty Service Requested 08/28/2025 1 1 Encounter Details Date Type Department Care Team (Late st Contact Info) Description 08/28/2024 Orders [place] [phone] Dago White APRN [facility] [place] [address] Critical limb ischemia of left lower extremity Social History Tobacco Use Types Packs/Day Years Used Date Smoking Tobacco: Every Day Cigarettes 1 25 Started: 12/28/1986; Last attempted to quit: 12/28/2011 Smokeless Tobacco: Never Alcohol Use Standard Drinks/Week Comments No 0 (1 standard drink = 0.6 oz pur e alcohol) [facility] Utilities Answer Date Recorded In [...] in the past 12 m [facility], were you homeless or living in a care home (including now)? No 08/02/2024 IPV Inpatient Questions [...] on file documented as of this encounter Results * Unilat Bypass Graft Assess (08/28/2024 12:55 PM EDT) VB Text Report Department: Vascular Surgery Lab Patient: [id number] (GEOVANNA ARAYA) CPT: 62419 Referring Physician: DAGO SNIDER ?? Phone: Indications: [...] 08/28/2024 12:5 5 PM EDT Dago White APRN [facility]ASCULAR [facility] documented in this encounter Visit Diagnoses Diagnosis Critical limb ischemia of left lower extremity documented in this encounter Care Teams Motion Picture Camera Operator Relationship Specialty Start Date End Date None None PCP - General 05/27/24 09/17/24 documented as of this encounter
--- OUTSIDE RECORDS SUMMARY | 2024-09-20 08:21 | XMS_ITS | Encounter Summary ---
Author Organization [facility] Address [facility] [place] [address] Care Team Providers Care Wellness Consultant Name Role Phone Charles Romero Primary Care Provider + Reason for Visit * Reason Onset Date Comments Peer To Peer 07/27/2024 Per 5 day protoc ol please be advised that prior auth is still pending review with the patient's insurance company. Will continue to update as more information returns Encounter Details Date Type Department Care Team (Late st Contact Info) Description 07/27/2024 Telephone [place] [phone] Lisette Maldonado MD [facility] [place] [address] Peer To Peer (Per 5 day protocol please be advised that prior auth is still pending review with the patient's insurance company. Will continue to update as more information returns) Social History Tobacco Use Types Packs/Day Years Used Date Smoking Tobacco: Every Day Cigarettes 1 25 Started: 12/28/1986; Last attempted to quit: 12/28/2011 Alcohol Use Standard Drinks/Week Comments No 0 (1 standard drink = 0.6 oz pur e alcohol) [facility] Utilities Answer Date Recorded In [...] were you homeless or living in a assisted (including now)? No 07/17/2024 DH IPV Inpatient [...] encounter Miscellaneous Notes * Telephone Encounter - Lizette Glass - 07/27/2024 7:22 AM EDTSummary: DOS: 08/01/2024 Per 5 day protocol please be advised that prior auth is still pending review with the patient's insurance company. Will continue to update as more information returns documented in this encounter Plan of Treatment Not on file documented as of this encounter Visit Diagnoses Not on filedocumented in this encounter Care Teams Wellness Consultant Relationship Specialty Start Date End Date Charles Romero PA [facility] [address] PCP - General Internal Medicine 09/18/24 documented as of this encounter
--- OUTSIDE RECORDS SUMMARY | 2024-09-20 08:21 | XMS_ITS | Encounter Summary ---
Author Organization [facility] Address [facility] [place] [address] Care Team Providers Care Environmental Change Analyst Name Role Phone None Primary Care Provider Unavailabl e Reason for Referral * Consultation (Urgent) - Duplicate Referral Specialty Diagnoses / Procedures Referred By Contac t Referred To Contact Cardiology Diagnoses Heart failure with mildly reduced ejection fraction (HFmrEF) Cardiomyopathy, unspecified type Hx of CABG S/P D/C - HFmrEF, Cardiomyopathy, Hx of CABG Viviana Resendiz APRN [facility] [address] [facility] Cardiology [address] [place] [phone] Referral ID Status Reason Start Date Expiration Date Visits Requested Visits Authorized [id number] Duplicate Referral Consult, Test & Treat 4 08/29/2025 1 1 Encounter Details Date Type Department Care Team (Late st Contact Info) Description 08/29/2024 Orders [place] [address] Viviana Resendiz APRN [facility] [place] [address] Heart failure with mildly reduced ejection fraction (HFmrEF); Cardiomyopathy, unspecified type; Hx of CABG Social History Tobacco Use Types Packs/Day Years [...] you homeless or living in a senior living (including now)? No 08/02/2024 DH IPV Inpatient [...] Associated Diagnoses Orde r Schedule Referral to Cardiology Outpatient Referral Urgent Heart failure with mildly reduced ejection fraction (HFmrEF) Cardiomyopathy, unspecified type Hx of CABG Ordered: 08/29/2024 documented as of this encounter Visit Diagnoses Diagnosis Heart failure with mildly reduced ejection fraction (HFmrEF) Cardiomyopathy, unspecified type Hx of CABG Postsurgical aortocoronary bypass status documented in this encounter Care Teams Environmental Change Analyst Relationship Specialty Start Date End Date None None PCP - General 05/27/24 09/17/24 documented as of this encounter
--- OUTSIDE RECORDS SUMMARY | 2024-09-20 08:21 | XMS_ITS | Encounter Summary ---
Author Organization [facility] Jean Marie britton [place] [id number] Care Team Providers Care Environment Artist Name Role Phone None Primary Care Provider Unavailabl e Reason for Visit * Auth/Cert (Routine) Specialty Diagnoses / Procedures Referred By Contac t Referred To Contact Diagnoses CLTI Procedures PRO BYPASS GRAFT OTHR, FEM-TIBIAL @BYPASS GRAFT, FEM-ANT TIBIAL, -POST TIBIAL, -PERONEAL, -DP W\ SYNTHETIC CONDUIT (WRVU 23.66) Lisette Maldonado MD [facility] [place] [address] [facility] Referral ID Status Reason Start Date Expiration Date Visits Re quested Visits Authorized [id number] 1 1 Encounter Details Date Type Department Care Team (Late st Contact Info) Description 08/01/2024 7:28 AM EDT Anesthesia [place] [id number] Cornelius Church MD [facility] [place] [address] Marko Mckeon CRNA [facility] [place] [address] Anesthesia Record Procedure Summary Procedure Name Responsible Anesthesiologist Anesthesia Start Time Anesthesia Stop Time @BYPASS GRAFT, FEM-ANT TIBIAL, -POST TIBIAL, -PERONEAL, -DP W\ SYNTHETIC CONDUIT (WRVU 23.66) (Left: Leg) Cornelius Church MD 08/01/24 0728 08/01/24 1115 Events Date Time Event Comment 08/01/2024 0714 0728 AN Verify 0728 Start 0728 An Start Data 0739 An Induction 0741 An Intubation 0750 Anesthesia Ready 0817 ABG Data Arterial Blood Gas result: pH 7.35 pCO2 43 pO2 210 %O2 Sat 98% FiO2 50% HCO3 23.5 BE -2.1 Hb 12.9 K 3.83 Glucose 164 Lactate 2.08 0826 Procedure Start 09 Break/Relief In I assumed ca re for Break Relief before which we: 1. Identified the patient 2. Identified the responsible provider(s) 3. Reviewed the pertinent medical history 4. Discussed the surgical plan and course 5. Reviewed intra-op anesthesia management and issues during anesthesia 6. Set expectations for the relief (and/or post-procedure) period 7. Allowed opportunity for questions and acknowledgement of understanding Cornelius Church MD 1107 Procedure Stop 1109 Extubation/LMA Out 1115 an stop data 1115 Recovery or ICU Handoff Bronwyn ent care was transferred to the destination unit staff after review of the patient's medical history, current anesthetic/surgical status and plan, according to the Provider Handoff Checklist. 1115 Stop Meds Name Total midazolam 2 mg fentaNYL 100 mcg lidocaine IV 50 mg propofoL 200 mg rocuronium 130 mg ondansetron 4 mg sugammadex 200 mg PHENYLephrine INF 3,340 mcg cefTRIAXone 2 g HYDROmorphone 1 mg dexmedeTOMIDine 4 mcg/mL 16 mcg heparin 14,000 Units protamine 40 mg lactated ringers 1,000 mL sodium chloride 0.9% 500 mL * Agents Name O2 * Blood No blood administrations on file. Lines, Drains, and Airways Type Details Placement Removal Wound 07/15/24; 0; Y; L eft; first toe; neuropathic wound/ulcer 07/15/241899 by Jay Ignacio RN Wound 07/15/24; 1900; Y; L eft; fifth toe; neuropathic wound/ulcer 07/15/241899 by Jay Ignacio RN Incision 07/19/24; 0946; Left ; second toe 07/19/24 0946 by Alan Tobias RN PIV 08/01/24; 0637; nlmu-kvd-nbxono catheter system; 20 gauge; metacarpal vein (top of hand), left; Anatomical Landmarks; brian zaragoza; distraction, tolerated well, appears comfortable 08/01/24 0637 by Brian Zaragoza, RN PIV 08/01/24; 0750; 18 g auge; cephalic vein (lateral side of arm), right; Lynnette 08/01/24 0750 by Marko Mckeon, CHERYL Incision 08/01/24; 0832; Left , lower, medial; leg; vertical 08/01/24 0832 by Smooth Parson RN Incision 08/01/24; 0833; Left ; groin; vertical 08/01/24 0833 by Smooth Parson RN Incision 07/20/24; 1030; ante rior, Right; groin; non-laparascopic puncture; LDA not present upon assessment; 08/02/24; 203007/20/24 1030 by Hailey Nick RN 08/02/242030 by Lauren Zavala RN ETT Mask Ventilation: Ad junct (2); ETT Type: Cuffed; ETT Size: 8 mm; Mac Blade: 3; Notes: Asleep, Pre-O2, Stylette; Attempts: 1; Laryngoscopy Grade: 1; ETT Placement Verified By: Auscultation, Capnometry, Visual; Secured at Teeth: 22 cm; Inserted by: Linda; Removal Date: 08/01/24; Removal Time: 1109 08/01/24 0741 by Marko Mckeon, IMPROVEMENT AUDITOR 08/01/24 1109 by Marko Mckeon CRNA Arterial Line 08/01/24; 0750; radi al artery, left; 20 gauge; continuous blood pressure monitoring, frequent blood gas measurement; Linda; Sterile Prep, Sterile Gloves; 08/01/24; 181508/01/24 0750 by Marko Mckeon, IMPROVEMENT AUDITOR 08/01/24 181 by Jeramy Escobar RN Urethral Catheter 08/01/24; 0758; Surg wei longer than 2 hours; indwelling double lumen catheter; 100% silicone; 14; inserted at [facility]; 1; 10; 10; (lube); drainage bag; 08/02/24; 0645 08/01/24 0758 by Smooth Parson RN 08/02/24 0645 by Lauren Zavala RN documented in this encounter Social History Tobacco Use Types Packs/Day Years Used Date Smoking Tobacco: Every Day Cigarettes 12 02 Started: 12/28/1986; Last attempted to quit: 12/28/2011 Smokeless Tobacco: Never Alcohol Use Standard Drinks/Week Comments No 0 (1 standard drink = 0.6 oz pur e alcohol) [facility] Utilities Answer Date Recorded In [...] time in the past 12 m [facility], were you homeless or living in a longterm (including now)? No 08/02/2024 IPV Inpatient Questions Answer Date Recorded Does Anyone Try to Keep You From Having Contact with Others or Doing Things Outside Your Home? no 08/01/2024 Feels Threatened by Someone no 09/2 02/2024 Feels Unsafe at Home or Work/School no 08/01/2024 Physical Signs of Abuse Present no 08/01/2024 Sex and Gender Information Value Date Recorded Sex Assigned at Not on file Gender Identity Not on file Sexual Orientation Not on file documented as of this encounter OR Notes * Anesthesia Postprocedure Evaluation - Cornelius Church MD - 08/01/2024 12:43 PM EDT Department of Anesthesiology Post-procedure Note Patient: Lux Dixon Jr. Procedure Summary Date: 08/01/24 Room / Location: [facility] OR [address] [place] [address] MAIN OR Anesthesia Start: 727 Anesthesia Stop: 1114 Procedure: @BYPASS GRAFT, FEM-ANT TIBIAL, -POST TIBIAL, -PERONEAL, -DP W\ SYNTHETIC CONDUIT (WRVU 23.66) (Left: Leg) Diagnosis: (CLTI) Surgeons: Lisette Maldonado MD Responsible Provider: Cornelius Church MD Anesthesia Type: general ASA Status: 3 All Anesthesia Providers: Anesthesiologist: Cornelius Church MD IMPROVEMENT AUDITOR: Marko Mckeon CRNA Vitals Value Taken Time BP 107/65 08/01/24 1315 Temp 36.5 ??C (97.7 ??F) 08/01/24 1315 Pulse 84 08/01/24 1324 Resp 19 08/01/24 1324 SpO2 98 % 08/01/24 1349 Pain Level 9 08/01/24 1331 Vitals shown include unfiled device data. Patient Location: PACU/[facility] Level of Consciousness: Awake and Alert Pain Management: Pain Being Addressed PONV: None Cardiovascular Status: Hemodynamically Stable Respiratory Status: Stable Respiratory Status Postoperative Fluid Status: Intravascular EUvolemia Possible Anesthetic Complications: NONE apparent at time of evaluation Final Primary Anesthesia Type: General (The anesthetic type performed was the same as planned.) Comments: * Anesthesia Preprocedure Evaluation - Cornelius Church MD - 08/01/2024 4:53 AM EDT Pre-Anesthesia Evaluation for: Lux Dixon Jr. a 49 y.o. male. Procedure(s): @BYPASS GRAFT, FEM-ANT TIBIAL, -POST TIBIAL, -PERONEAL, -DP W\ SYNTHETIC CONDUIT (WRVU 23.66) Patient Active Problem List Diagnosis Date Noted ??? 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 (SVG to PDA closed 08/2013) 01/06/2012 ??? Peripheral artery disease 07/14/2024 ??? Critical limb ischemia [...] w/o bowel resection ([facility]) ??? PRO AMPUTATION TOE, MT-P JT Left 07/19/2024 AMPUTATION TOE, METATARSO-PHALANGEAL JOINT (WRVU 3.51) performed by Thony Garcia MD at [facility] MAIN OR ??? PRO CABG, ARTERY-VEIN, SINGLE 01/04/2012 @CABG, VENOUS & ARTERIAL GRAFT;SINGLE VEIN GRAFT performed by INNA TOVAR at [facility] MAIN OR ??? PRO ENDOSCOPY W/VIDEO-ASST VEIN HARVEST, CABG 01/04/2012 ENDOSCOPIC HARVEST VEIN(S) FOR CABG performed by INNA TOVAR at [facility] MAIN OR ??? VS ARTERIOGRAM LOWER EXTREMITY VASCULAR SURGERY 07/20/2024 VS Arteriogram Lower Extremity Vascular Surgery 07/20/2024 Taylor Ruiz MD [facility] INTERVENTIONL RAD Social History Tobacco Use ??? Smoking status: Every Day Current packs/day: 0.00 Average packs/day: 1 pack/day for 25.0 years (25.0 ttl pk-yrs) Types: Cigarettes Start date: 12/28/1986 Last attempt to quit: 12/28/2011 Years since quittin.6 ??? Smokeless tobacco: Not on file Substance Use Topics ??? Alcohol use: No Social History Substance and Sexual Activity Drug Use No No Known Allergies Medications: MAR and/or home medications have been reviewed. Physical Exam: Preprocedure Vitals Current as of 08/01/24 0453 No BP, pulse, respiration, SpO2, or temperature recorded. Height: 177.8 cm (5' 10) (07/14/24) Weight: 99.8 kg (220 lb) (07/14/24) BMI: 31.56 IBW: 73 kg (160 lb 15 oz) Airway Assessment: Mallampati: II Cardiovascular Assessment: Rhythm: regular Rate: normal Pulmonary Assessment: unlabored breathing Dental Assessment: (+) edentulous Misc Assessment: IV access: Peripheral line Last Filed Perioperative Cognitive Screening Value Time User 4AT TOTAL Score: 0 05/31/2024 7:25 PM Maribel Quinn RN Anesthesia Plan: ASA 3 general, with a(n) intravenous induction 49 y.o.male (100 kg/BMI 32) h/o HTN, HL, DM2, (SGLT2i), depression, CAD s/p 2v CABG (2011, SVG to PDA known closed 08/2013), tobacco use, cocaine use, obesity, narcolepsy, and chronic limb ischemia of LLE s/p toe amps now scheduled for LLE bypass graft. Patient denies significant GERD, recent URI symptoms and is appropriately NPO. Nuc Stress (05/30) FINDINGS: There is a small in size, moderate in intensity fixed defect involving the apical anterior, true apex, and apical inferior segments. No dilation of the LV cavity with stress (TID 1.08). Functional analysis: Myocardial function: There is mildly reduced LV systolic function. Left ventricular ejection fraction: 48 % (normal greater than than 50%). Activity status: ADR:No Known Allergies Recent Labs: Lab Results Component Value Date WBC 10.11 (H) 07/21/2024 WBC 12.8 (H) 06/02/2024 RBC 4.52 (L) 07/21/2024 RBC 4.56 (L) 06/02/2024 HGB 13.2 (L) 07/21/2024 HGB 13.7 06/02/2024 HCT 39.7 (L) 07/21/2024 HCT 39.0 (L) 06/02/2024 MCV 87.8 07/21/2024 MCV 85.5 06/02/2024 MCH 29.2 07/21/2024 MCH 30.0 06/02/2024 MCHC 33.2 07/21/2024 MCHC 35.1 06/02/2024 PLATELET 405 (H) 07/21/2024 PLATELET 283 06/02/2024 RDWCV 13.2 07/21/2024 RDWCV 11.6 06/02/2024 Lab Results Component Value Date/Time NA 138 07/21/2024 05:55 AM NA 137 06/02/2024 01:52 AM K 4.1 07/21/2024 05:55 AM K 4.0 06/02/2024 01:52 AM CL 103 07/21/2024 05:55 AM CL 102 06/02/2024 01:52 AM CO2 23 07/21/2024 05:55 AM CO2 23 06/02/2024 01:52 AM BUN 12 07/21/2024 05:55 AM BUN 7 (L) 06/02/2024 01:52 AM CREATININE 0.55 (L) 07/21/2024 05:55 AM CREATININE 0.52 (L) 06/02/2024 01:52 AM T&S Status: Not active Anesthetic Hx: Prior GA for toe amp Airway Hx: LMA 5 Plan: GETA, postinduction kimberlee, PIV access The patient was informed of the risks, benefits and alternatives of anesthesia. These risks included, but were not limited to, prolonged intubation, post- operative nausea and/or vomiting, pain, sore throat, dental/lip trauma, and other rare but serious complications such as major organ damage, awareness, severe allergic reactions, position-related nerve injuries, and need blood transfusions. The patient accepts that additional procedures and/or escalation of care may be necessary as dictated bythe course of the procedure/anesthetic. All questions sought and answered. Consent was signed and placed in chart. Region - Other Informed Consent: Anesthetic plan and risks discussed with patient. Plan discussed with IMPROVEMENT AUDITOR. Anesthesia Screening documented in this encounter Plan of Treatment Not on file documented as of this encounter Visit Diagnoses Not on filedocumented in this encounter Administered Medications Inactive Administered Medications - up to 3 most recent administrations Medication Order MAR Action Action Date Dose Rate Site cefTRIAXone (Rocephin) injection Intravenous, PRN, Starting on Wed08/01/24 at 0805, Until Wed08/01/24 at 1115, Anesthesia Intra-op, Routine Given 08/01/2024 8:05 AM EDT 2 g dexmedeTOMIDine (Precedex) (4 mcg/mL) bolus injection (Anesthsia) Intravenous, PRN, Starting on Wed08/01/24 at 0858, Until Wed08/01/24 at 1115, Anesthesia Intra-op, Routine Given 08/01/2024 10:51 AM EDT 8 mcg Given 08/01/2024 8:58 AM EDT 8 mcg fentaNYL (pf) (50 mcg/mL) multi-dose injection Intravenous, PRN, Starting on Wed08/01/24 at 0827, Until Wed08/01/24 at 1115, Anesthesia Intra-op, Routine Given 08/01/2024 8:27 AM EDT 100 mcg heparin (porcine) (1,000 units/mL) injection Intravenous, PRN, Starting on Wed08/01/24 at 0900, Until Wed08/01/24 at 1115, Anesthesia Intra-op, Routine Given 08/01/2024 9:42 AM EDT 2,000 Uni ts Given 08/01/2024 9:10 AM EDT 2,000 Units Given 08/01/2024 9:00 AM EDT 10,000 Units HYDROmorphone (Dilaudid) (2 mg/mL) multi-dose injection solution Intravenous, PRN, Starting on Wed08/01/24 at 0830, Until Wed08/01/24 at 1115, Anesthesia Intra-op, Routine Given 08/01/2024 10:55 AM EDT 0.5 mg Given 08/01/2024 8:30 AM EDT 0.5 mg lactated ringers infusion Intravenous, CONTINUOUS PRN, Starting on Wed08/01/24 at 0728, Until Wed08/01/24 at 1115, Anesthesia Intra-op New Bag 08/01/2024 9:04 AM EDT New Bag 08/01/2024 7:28 AM EDT lidocaine (pf) (Xylocaine) (20 mg/mL) 2% injection syringe Intravenous, PRN, Starting on Wed08/01/24 at 0803, Until Wed08/01/24 at 1115, Anesthesia Intra-op, Routine Given 08/01/2024 8:03 AM EDT 50 mg midazolam (pf) (Versed) (1 mg/mL) multi-dose injection Intravenous, PRN, Starting on Wed08/01/24 at 0730, Until Wed08/01/24 at 1115, Anesthesia Intra-op, Routine Given 08/01/2024 7:30 AM EDT 2 mg ondansetron (pf) (Zofran) (2 mg/mL) injection Intravenous, PRN, Starting on Wed08/01/24 at 1043, Until Wed08/01/24 at 1115, Anesthesia Intra-op, Routine Given 08/01/2024 10:43 AM EDT 4 mg PHENYLephrine (Erik-Synephrine) (80 mcg/mL) in sodium chloride 0.9% 250 mL infusion Intravenous, CONTINUOUS PRN, Starting on Wed08/01/24 at 0750, Until Wed08/01/24 at 1115, Anesthesia Intra-op, Routine Restarted 08/01/2024 9:22 AM EDT 20 mcg/min 15 mL/hr New Bag 08/01/2024 7:50 AM EDT 50 mcg/min 37.5 mL/hr propofoL (Diprivan) 10 mg/mL bolus injection (Anesthesia) Intravenous, PRN, Starting on Wed08/01/24 at 0803, Until Wed08/01/24 at 1115, Anesthesia Intra-op Given 08/01/2024 8:03 AM EDT 200 mg protamine (10 mg/mL) injection Intravenous, PRN, Starting on Wed08/01/24 at 1028, Until Wed08/01/24 at 1115, Anesthesia Intra-op, Routine Given 08/01/2024 10:28 AM EDT 40 mg rocuronium (Zemuron) (10 mg/mL) multi-dose injection Intravenous, PRN, Starting on Wed08/01/24 at 0803, Until Wed08/01/24 at 1115, Anesthesia Intra-op, Routine Given 08/01/2024 10:24 AM EDT 20 mg Given 08/01/2024 9:37 AM EDT 20 mg Given 08/01/2024 8:42 AM EDT 20 mg sodium chloride 0.9% infusion Intravenous, CONTINUOUS PRN, Starting on Wed08/01/24 at 0750, Until Wed08/01/24 at 1115, Anesthesia Intra-op New Bag 08/01/2024 7:50 AM EDT sugammadex (Bridion) 100 mg/mL injection Intravenous, PRN, Starting on Wed08/01/24 at 1050, Until Wed08/01/24 at 1115, Anesthesia Intra-op, Routine Given 08/01/2024 10:50 AM EDT 200 mg documented in this encounter Care Teams Environment Artist Relationship Specialty Start Date End Date None None PCP - General 05/27/24 09/17/24 documented as of this encounter
--- OUTSIDE RECORDS SUMMARY | 2024-09-20 08:21 | XMS_ITS | Encounter Summary ---
Author Organization [facility] Address [facility] [place] [address] Care Team Providers Care Porcelain Technician Name Role Phone None Primary Care Provider Unavailabl e Reason for Referral * Home Health Care (Routine) - Authorized Specialty Diagnoses / Procedures Referred By William moses Referred To Contact Diagnoses Critical limb ischemia of left lower extremity María Carranza APRN [facility] [place] [address] [facility] [address] [place] [address] Referral ID Status Reason Start Date Expiration Date Visits Requested Visits Authorized [id number] Authorized Consult, Test & Treat 08/03/2024 01/30/2025 999 999 Reason for Visit * Auth/Cert (Routine) Specialty Diagnoses / Procedures Referred By William moses Referred To Contact Diagnoses CLTI Procedures PRO BYPASS GRAFT OTHR, FEM-TIBIAL @BYPASS GRAFT, FEM-ANT TIBIAL, -POST TIBIAL, -PERONEAL, -DP W\ SYNTHETIC CONDUIT (WRVU 23.66) Lisette Maldonado MD [facility] [place] [address] [facility] Referral ID Status Reason Start Date Expiration Date Visits Re quested Visits Authorized [id number] 1 1 Encounter Details Date Type Department Care Team (Latest Contact Info) Description 08/01/2024 5:32 AM EDT - 08/03/2024 4:45 PM EDT Hospital Encounter Surgical Unit Level 4 Wing D at [facility] [place] [id number] Lisette Maldonado MD [facility] [place] [address] Critical limb ischemia of left lower extremity; PAD (peripheral artery disease); Peripheral artery disease Discharge Disposition: Home with VNA Social History Tobacco Use Types Packs/Day Years Used Date Smoking Tobacco: Every Day Cigarettes 12 02 Started: 12/28/1986; Last attempted to quit: 12/28/2011 Smokeless Tobacco: Never Tobacco Cessation:Ready to Q uit: No; Counseling Given: Not Answered Alcohol Use Standard Drinks/Week Comments No 0 (1 standard drink = 0.6 oz pur e alcohol) [facility] Utilities Answer Date Recorded In the past 12 months has th e [place], gas, oil, or water eReplicant threatened to shut off services in your [...] any time in the past 12 m [facility], were you homeless or living in [...] Sign Reading Time Taken Comments Blood Pressure 120/70 08/03/2024 8:02 AM EDT Pulse 85 08/01/2024 1:15 PM EDT Temperature 36.3 ??C (97.3 ??F) 08/03/2024 8:02 AM ED T Respiratory Rate 16 08/03/2024 8:02 AM EDT Oxygen Saturation 93% 08/03/2024 8:02 AM EDT Inhaled Oxygen Concentration - - Weight 105.5 kg (232 lb 9.4 oz) 08/02/2024 2:54 PM EDT Height 177.8 cm (5' 10) 08/01/2024 10: 09 PM EDT Body Mass Index 33.37 08/01/2024 10:09 PM [...] and left foot pain who presents to [facility] for left lower extremity bypass Previously from 07/21 discharge H&P: Lux Dixon Jr. is a 49 y.o. male with history of CAD s/p CABG, DM, obesity, NSTEMI, HTN, HLD, depression, tobacco use, substance use who presents to the ED today with concern for left foot pain and color changes. Vascular Surgery consulted due to concern for left foot gangrene with infection. Alyssia, patient has been previously admitted to the [facility] Vascular Surgery [...] Process Instructions: There is no in-house vascular seed laboratory assistant available on weeknights (5pm-8am), weekends, or holidays. IF THIS IS A REQUEST FOR AN EMERGENT STUDY DURING THOSE HOURS, please have the senior provider responsible for the patient page the Vascular Surgery Fellow/Senior Resident concession stand attendant to discuss options. Scheduling Instructions: Questions: Graft description/location: s/p BL femoral endarterectomies with illiac stent grafts Indication for study/signs & symptoms: improved patency/flow Question to be answered: improved patency/flow Preferred location?: [facility] Clinics Referral to Home Health [[id number] Custom] As directed Process Instructions: If no progress note charted, please enter Clinical details in comments. Scheduling Instructions: Comments: Please evaluate Lux Dixon Jr. for admission to Home Health. [address] [facility] [id number] (home) Date of : 1975 Inpatient DOCUMENTATION FOR VNA SERVICES (INCLUDING THOSE PATIENTS WITH MEDICARE COVERAGE REQUIRING HOME VNA SERVICES AND/OR HOSPICE SERVICES) PATIENT'S LOCATION: Lux Dixon Jr. [address] [facility] [id number] (home) Cell: Telephone Information: Head Cook's Name: self In discussion with the attending physician, it is certified that this patient is under their care and that they, or a Nurse Practitioner, Clinical Nurse specialist or Physician Machine Bunch Maker who is working directly with them, had [...] SACHIN bandage daily) HOME HEALTH CARE AGENCY: [facility]. [address] [place] [id number] START OF CARE: within 24-48 hours of [...] For any problems or questions please call [phone] For issues on weeknights after 5pm and weekends please call [phone] and ask for the Vascular Fellow concession stand attendant. documented in this encounter Discharge Instructions * Patient Instructions* María Carranza APRN - 07/24/2024 9:40 AM EDT Patient Instructions [...] For any problems or questions please call [phone] For issues on weeknights after 5pm and weekends please call [phone] and ask for the Vascular Fellow concession stand attendant. documented in this encounter Medications at Time [...] 07/21/2024 insulin needles, disposable, 32 gauge x 32 NeedleIndications:d iabetes mellitus Inject 1 each subcutaneously [...] 30 tablet 3 06/03/2024 omeprazole 20 mg Tablet,Anibal Barney DR Take by mouth Daily at Noon. [...] 08/01/[address] Lisette Maldonado MD. Per note, Lux Dixon Jr. is a 49 y.o. male with a history of CAD s/p CABG, DM, obesity, NSTEMI, HTN, HLD, depression, tobacco use, substance use and left foot pain who presents to [facility] for left iliofemoral endarterectomy and left femoral [...] 3.51) performed by Thony Garcia MD at [facility] MAIN OR PRO BYPASS GRAFT OTHR, FEM-TIBIAL Left 08/01/2024 @BYPASS GRAFT, FEM-ANT TIBIAL, -POST TIBIAL, -PERONEAL, -DP W\ SYNTHETIC CONDUIT (WRVU 23.66) performed by Lisette Maldonado MD at [facility] MA[facility] OR PRO CABG, ARTERY-VEIN, SINGLE 01/04/2012 @CABG, VENOUS & ARTERIAL GRAFT;SINGLE VEIN GRAFT performed by INNA TOVAR at [facility] MAIN OR PRO ENDOSCOPY W/VIDEO-ASST VEIN HARVEST, CABG 01/04/2012 ENDOSCOPIC HARVEST VEIN(S) FOR CABG performed by INNA TOVAR at [facility] MAIN OR VS ARTERIOGRAM LOWER EXTREMITY VASCULAR SURGERY 07/20/2024 VS Arteriogram Lower Extremity Vascular Surgery 07/20/2024 Taylor Ruiz MD [facility] INTERVENTIONL RAD Active Non-Hospital Problems Diagnosis CAD [...] reach, and all needs met. Assessment: Lux Dixon Jr. was seen today for physical [...] ray PT, Doctor of Physical Therapy Pager: [phone] Physical Therapy Inpatient Rehabilitation Department * María Carranza, DIRECTOR CASE MANAGEMENT - 08/03/2024 11:30 AM EDT Vascular Surgery Progress Note Lux Dixon Jr. is a 49 y.o. male with a history of CAD s/p CABG, DM, obesity, NSTEMI, HTN, HLD, depression, tobacco use, substance use and left foot pain who presents to [facility] for left iliofemoral endarterectomy and left femoral [...] Intravenous BID acetaminophen 975 mg Oral Q6H [facility] senna-docusate 2 tablet Oral BID insulin glargine (Lantus;Semglee) (100 unit/mL) subcutaneous injection 50 Units Subcutaneous Nightly heparin (porcine) 5,000 Units Subcutaneous Q8H [facility] Operations This Hospitalization 08/01: Left iliofemoral endarterectomy Left femoral to below-knee popliteal artery bypass with 7mm ringed PTFE Interim - HDS, NAEO, pain well controlled, 100% trays, BM ELEMENTARY READING SPECIALIST - WBC 10.7 (11.2), Hgb 12.5 (12), [...] K 3.9 3.7 CL 100 102 CO2 24 BUN 10 11 CREATININE 0.50* 0.56* PHOS [...] daily Dispo: Floor, anticipate discharge pending PT/OT eval María Carranza APRN 08/03/2024 Pager: [phone] * Alicja Montague MD - 08/02/2024 1:29 PM EDT Vascular Surgery Progress Note Patient ID Lux Dixon Jr. is a 49 y.o. male with a history of CAD s/p CABG, DM, obesity, NSTEMI, HTN, HLD, depression, tobacco use, substance use and left foot pain who presents to [facility] for left iliofemoral endarterectomy and left femoral [...] UOP adequate Alicja Montague MD Vascular Surgery 08/01/24 * Shannon Haney RN - 08/01/2024 11:46 AM EDT 1142: Report received from DAVID Reyes; care assumed. VSS on 6L simple mask. 1315: Phase 2 criteria met. Report given to L4WD DAVID Deshpande. * Amy Almaraz RN - 08/01/2024 [...] and left foot pain who presents to [facility] for left lower extremity bypass S: Lux [...] 3.51) performed by Thony Garcia MD at [facility] MA[facility] OR PRO CABG, ARTERY-VEIN, SINGLE 01/04/2012 @CABG, VENOUS & ARTERIAL GRAFT;SINGLE VEIN GRAFT performed by INNA TOVAR at [facility] MA[facility] OR PRO ENDOSCOPY W/VIDEO-ASST VEIN HARVEST, CABG 01/04/2012 ENDOSCOPIC HARVEST VEIN(S) FOR CABG performed by INNA TOVAR at [facility] MA[facility] OR Social History Socioeconomic History Marital [...] Intimate Partner Violence: Not At Risk (07/14/2024) IPV Inpatient Questions Prevent Contact with Others: [...] 149 Dorsalis Pedis (Ankle) Artery 83 0.55 [place]-Biphasic Posterior Tibial (Ankle) Artery 87 0.57 Monophasic [...] and left foot pain who presents to [facility] for left lower extremity bypass. Will proceed with planned operation. -Consent signed, questions answered -Preop checklist complete Dennis Guzman MD Vascular Fellow PGY7, pager [phone] Associated attestation - Lisette Maldonado MD - [...] - 08/03/2024 2:40 PM EDT Home with [facility] CARE MANAGEMENT FINAL DISCHARGE NOTE Chart reviewed, care reviewed with primary team and at interdisciplinary rounds. Patient is medically ready for discharge to [facility]. Needs for Transition of Care: Plan for discharge is: Agency Referrals & Follow-up Care: Contact information for follow-up [address] [address] Transportation: family or friend will provide Functional status prior to admission: Independent Home Environment: Others in the home: sibling(s), other relative(s). Current Living Arrangements: home/apartment/condo. Accessibility Concerns:2 level home includng basement. Current Functional Ability: Assistive Equipment DME used at home: crutches Patient is insured through: Primary Insurance: [employer] MANAGED MEDICARE Payor: [employer] MANAGED MEDICARE / Plan: [employer] MANAGED MEDICARE PPO / Product Type: *No [...] where referrals are placed. Provided patient with [facility] Star Quality Rating for Home care hand out. Patient requests referral to : [facility]. [address] [place] [id number] Expected date of discharge: 08/03. Referral routed to the Billing And Accounting Staff Assistant for matching with agency/vendor and to provide [...] television smartphone Taken 08/01/20242126 Pain Management Interventions: [id number] dosing utilized care clustered pain management plan [...] consult to Social Work Ordered at: 08/01/24 8403 Reason for Consult: Substance / alcohol abuse Reason for Consult? Patient has scored positive for Audit or DAST assessments Reason for Consult Substance / alcohol abuse Additional information Admitted to cocaine use Social Work Response: CEMENTER MACHINE APPLICATOR reviewed chart. DAST score of 3. DIRECTOR CASE MANAGEMENT to see for DAST. However, CEMENTER MACHINE APPLICATOR gave pt Consumer???s Guide for Substance Use Treatment in the [facility]. Pt refuses tx but accepted booklet to read. Follow Up Needed: Nothing further regarding this consult as DIRECTOR CASE MANAGEMENT will see pt due to DAST score. [...] tbd Patient is insured through: Primary Insurance: [employer] MANAGED MEDICARE Payor: [employer] MANAGED MEDICARE / Plan: [employer] MANAGED MEDICARE [...] nurse, medical record, and Patient, Chart Review DENISSE Introduced self/reviewed role; services accepted. Admitted From: Home Reason for Hospitalization: Leg pain Past medical History: Past Medical History: Diagnosis Date Depression Hyperlipidemia Hypertension Narcolepsy Obesity Hospitalizations Within the Past 30 Days: planned readmission Current Decision-Making Capacity: Self If AD's have not been completed the following surrogate would be surrogate decision maker per [place] surrogate decision making law. (Only good for 180 days) Any patient receiving care in [place] must abide by [place] law. The hierarchy for surrogate decision making [...] (i) The agent with financial power of environmental attorney or a conservator appointed in accordance [...] homeless or living in a retirement (including now)?: No In the past 12 months has the electric, gas, oil, or water [employer] threatened to shut off services in your [...] Current DME: [employer] Home Address confirmed as: [address] [place] [address] Social & Family Supports: All names listed below confirmed with patient as current and correct Extended Emergency Contact Information Primary Emergency Contact: Rene Dixon Relation: Spouse Secondary Emergency Contact: Cony Barrientos [place] Relation: Mother Current Care Provided by: self [...] Guide for Substance Use Treatment in the [facility]. Refuses sub tx but took the booklet to read over Health/Prescription Coverage: Primary Insurance: [employer] MANAGED MEDICARE Payor: [employer] MEDICARE / Plan: [employer] MANAGED MEDICARE PPO / Product Type: *No Product type* / Secondary Insurance: N/A ; Prescription Coverage: Yes Preferred Pharmacy: [place] [facility] - [place], [place] - [address] [facility] [address] [facility] [address] [facility] - [place], [place] - [address] [place] [address] Status: Patient is a : No Primary [...] to ambulate to chair, achieved. BS elevated, MD aware. Pt. Verbalizes pain in the groin [...] and ADLs]: minimal Surveillance [continuous indirect monitoring]: masimo Patient-specific fall [...] and left foot pain who presents to [facility] for left lowerextremity bypass. Previous admission at [facility] (07/14-07/21). 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 Incision made at the PIP joint space, amputation performed at the transmetatarsal space. Per H&P note 07/14, patient had also been previously admitted to the [facility] Vascular Surgery [...] Elbow - right: No Injury Device Sites: scott Last Bowel Movement: 07/30/24 (per pt report) [...] of this encounter: 101.6 kg (224 lb). [place] Body Weight (IBW) (kg): 75.45 Wt Readings [...] at bedside. Lux reports a good appetite ELEMENTARY READING SPECIALIST with 3 meals/day. Pt did not provide [...] during previous admission and enjoyed these - casualty underwriter offered to send Glucerna as a lower carbohydrate option pt was agreeable to this(casualty underwriter sent one today for pt to [...] an evening meal which is usually takeout (precision thread grinder operator or pizza). Drinks up to 18 cans of Mountain Dew/day or 1.5 gallons of milk daily. No data found. Nutrition Focused Physical Exam: Performed . Subcutaneous Fat Loss Orbital region: None present Upper arm region (triceps/biceps): Mild Thoracic and Lumbar regions (ribs, lower back, and maxillary line): None present Lean Muscle Loss Taylor region (temporalis muscle): Mild Clavicle bone region [...] continue to follow up while inpatient Lilli Santana MS, RD, LD Clinical Nutrition * Plan [...] Diversional Activities: television smartphone Pain Management Interventions: [id number] dosing utilized care clustered pain management plan [...] and ADLs]: scott Surveillance [continuous indirect monitoring]: maso Patient-specific fall prevention interventions for sensory deficits [...] Maldonado MD - 08/01/2024 8:30 AM EDT [facility] Operative Note Patient Name: Lux Dixon Jr. : [id number] MR#: [id number] Case Date: 08/01/2024 Surgeon: Surgeons and Role: [...] foot pain with ulcers who presents to [facility] for left lower extremity bypass. Procedure Description: [...] proximally and the SFA distally. Theexternal iliac, RENEWABLE ENERGY DIVISION MANAGER and proximal SFA were endarterectomized in the [...] 8:04 AM EDT Bypass Graft Othr, Fem-Tibial ([id number]) 08/01/2024 7:34 AM EDT CLTI POC, GLUCOSE Routine 08/01/2024 6:23 AM EDT BYPASS GRAFT, FEM-ANT TIBIAL, -POST TIBIAL, -PERONEAL, -DP W\ SYNTHETIC CONDUIT Routine 08/01/2024 6:03 AM EDT IMPLANTABLE DEVICES SCAN 08/01/2024 12:00 AM EDT documented in this encounter Results * POC, GLUCOSE (08/03/2024 12:27 PM EDT) Glucometer, POC 81 65 - 199 mg/dL 08/03/2024 12:27 PM EDT [facility] Comment:Supplemental ranges: <140 mg/dL before meals <180 mg/dL all other times of the day. Blood CAPILLARY BLOOD / Unknown 08/03/2024 12:27 PM EDT 08/03/2024 12:27 PM EDT Lisette Maldonado MD POINT OF CARE TEST ORDERABLES [facility] [place] [address] * POC, GLUCOSE (08/03/2024 8:06 AM EDT) Glucometer, POC 137 65 - 199 mg/dL 08/03/2024 8:06 AM EDT [facility] Comment:Supplemental ranges: <140 mg/dL before meals <180 mg/dL all other times of the day. Blood CAPILLARY BLOOD / Unknown 08/03/2024 8:06 AM EDT 08/03/2024 8:06 AM EDT Lisette Maldonado MD POINT OF CARE TEST ORDERABLES [facility] [place] [address] * Phosphorus (08/03/2024 4:41 AM EDT) Phosphorus 3.4 2.5 - 4.5 mg/dL 08/03/2024 5:22 AM EDT [facility] Blood VENOUS BLOOD SPECIMEN / Unknown IP Care Team Draw / Unknown 08/03/2024 4:41 AM EDT 08/03/2024 4:51 AM EDT Lisette Maldonado MD CHEMISTRY ORDERABL ES [facility] [place] [address] * Magnesium (08/03/2024 4:41 AM EDT) Magnesium 0.81 0.69 - 1.07 mMol/L 08/03/2024 5:22 AM EDT [facility] Blood VENOUS BLOOD SPECIMEN / Unknown IP Care Team Draw / Unknown 08/03/2024 4:41 AM EDT 08/03/2024 4:51 AM EDT Lisette Maldonado MD CHEMISTRY ORDERABL ES Performing Organization Address City/[facility]/ZIP Co de Phone Number [facility] [place] [address] * (ABNORMAL) Basic Metabolic Panel (08/03/2024 4:41 AM EDT) Glucose 179 65 - 199 mg/dL 08/03/2024 6:51 AM EDT [facility] Comment:Glucose Concentratio n >=200 mg/dL plus symptoms is consistent with Diabetes Mellitus. Blood Urea Nitrogen 10 10 - 20 mg/dL 08/03/2024 6:51 AM EDT [facility] Creatinine 0.50(L) 0.80 - 1.50 mg/dL 08/03/2024 6:51 AM EDT [facility] Sodium 135 135 - 145 mMol/L 08/03/2024 6:51 AM EDT [facility] Potassium 3.9 3.5 - 5.0 mMol/L 08/03/2024 6:51 AM EDT [facility] Chloride 100 98 - 107 mMol/L 08/03/2024 6:51 AM EDT [facility] Carbon Dioxide 26 22 - 31 mMol/L 08/03/2024 6:51 AM EDT [facility] Anion Gap 9 5 - 15 mMol/L 08/03/2024 6:51 AM EDT [facility] Calcium 9.6 8.5 - 10.5 mg/dL 08/03/2024 6:51 AM EDT [facility] Est Glomerular Filtration Rate - Male 124 mL/min/1. 73 m?? 08/03/2024 6:51 AM EDT [facility] Comment: This [...] EDT Lisette Maldonado MD CHEMISTRY ORDERABL ES [facility] [place] [address] * (ABNORMAL) CBC (with Diff) (08/03/2024 4:41 AM EDT) White Blood Cell 10.74(H) 4.00 - 9.50 x10(3)/mc L 08/03/2024 4:57 AM EDT [facility] Red Blood Cell 4.23(L) 4.58 - 5.54 x10(6)/mc L 08/03/2024 4:57 AM EDT [facility] Hemoglobin 12.5(L) 13.7 - 16.5 g/dL 08/03/2024 4:57 AM EDT [facility] Hematocrit 38.5(L) 40.5 - 48.5 % 08/03/2024 4:57 AM [facility] Mean Cell Volume 91.0 82.9 - 93.1 fL 08/03/2024 4:57 AM [facility] Mean Cell Hemoglobin 29.6 27.5 - 32.1 pg 08/03/2024 4:57 AM [facility] Mean Cell Hemoglobin Concentration 32.5 32.0 - 35.7 g/dL 08/03/2024 4:57 AM [facility] Platelet 309 145 - 357 x10(3)/mc L 08/03/2024 4:57 AM [facility] Mean Platelet Volume 9.7 7.6 - 12.9 fL 08/03/2024 4:57 AM [facility] RDW Standard Deviation 44.0 36.0 - 45.0 fL 08/03/2024 4:57 AM [facility] RDW coefficient of variation 13.3 11.4 - 13.8 % 08/03/2024 4:57 AM [facility] NRBC% auto 0.0 % 08/03/2024 4:57 AM [facility] NRBC Absolute <0.01 <0.01 x10(3)/mc L 08/03/2024 4:57 AM [facility] Neutrophil % 71.7 % 08/03/2024 4:57 AM [facility] Neutrophil Absolute (ANC) - Automated 7.71(H) 1.70 - 6.10 x10(3)/mc L 08/03/2024 4:57 AM [facility] Lymph % 18.5 % 08/03/2024 4:57 AM [facility] Lymph Absolute 1.99 0.90 - 3.20 x10(3)/mc L 08/03/2024 4:57 AM [facility] Monocyte % 7.2 % 08/03/2024 4:57 AM [facility] Monocyte Absolute 0.77 0.30 - 0.90 x10(3)/mc L 08/03/2024 4:57 AM EDT [facility] Eos % 1.5 % 08/03/2024 4:57 AM EDT [facility] Eos Absolute 0.16 0.00 - 0.40 x10(3)/mc L 08/03/2024 4:57 AM EDT [facility] Basophil % 0.6 % 08/03/2024 4:57 AM EDT [facility] Baso Absolute 0.06 0.00 - 0.10 x10(3)/mc L 08/03/2024 4:57 AM EDT [facility] Immature Gran % 0.5 % 4:57 AM EDT [facility] Immature Gran Absolute 0.05(H) 0.00 - 0.04 x10(3)/mc L 08/03/2024 4:57 AM EDT [facility] Blood VENOUS BLOOD SPECIMEN / Unknown IP Care Team Draw / Unknown 08/03/2024 4:41 AM EDT 08/03/2024 4:51 AM EDT Lisette Maldonado MD HEMATOLOGY ORDERAB LES [facility] [place] [address] * (ABNORMAL) POC, GLUCOSE (08/03/2024 3:58 AM EDT) [facility] Signature Glucometer, POC 200(H) 65 - 199 mg/dL 08/03/2024 3:58 AM EDT [facility] Comment:Supplemental ranges: <140 mg/dL before meals <180 mg/dL all other times of the day. Blood CAPILLARY BLOOD / Unknown 08/03/2024 3:58 AM EDT 08/03/2024 3:58 AM EDT Lisette Maldonado MD POINT OF CARE TEST ORDERABLES [facility] [place] [address] * POC, GLUCOSE (08/02/2024 11:06 PM EDT) Glucometer, POC 194 65 - 199 mg/dL 08/02/2024 11:07 PM EDT [facility] Comment:Supplemental ranges: <140 mg/dL before meals <180 mg/dL all other times of the day. Blood CAPILLARY BLOOD / Unknown 08/02/2024 11:06 PM EDT 08/02/2024 11:07 PM EDT Lisette Maldonado MD POINT OF CARE TEST ORDERABLES Performing Organization Address City/[facility]/ZIP Co de Phone Number [facility] [place] [address] * (ABNORMAL) POC, GLUCOSE (08/02/2024 7:46 PM EDT) Glucometer, POC 226(H) 65 - 199 mg/dL 08/02/2024 7:46 PM EDT [facility] Comment:Supplemental ranges: <140 mg/dL before meals <180 mg/dL all other times of the day. Blood CAPILLARY BLOOD / Unknown 08/02/2024 7:46 PM EDT 08/02/2024 7:46 PM EDT Lisette Maldonado MD POINT OF CARE TEST ORDERABLES [facility] [place] [address] * (ABNORMAL) POC, GLUCOSE (08/02/2024 5:17 PM EDT) Glucometer, POC 236(H) 65 - 199 mg/dL 08/02/2024 5:17 PM EDT [facility] Comment:Supplemental ranges: <140 mg/dL before meals <180 mg/dL all other times of the day. Blood CAPILLARY BLOOD / Unknown 08/02/2024 5:17 PM EDT 08/02/2024 5:17 PM EDT Lisette Maldonado MD POINT OF CARE TEST ORDERABLES Performing Organization Address [facility] Co de Phone Number [facility] [place] [address] * (ABNORMAL) POC, GLUCOSE (08/02/2024 12:44 PM EDT) Glucometer, POC 228(H) 65 - 199 mg/dL 08/02/2024 12:45 PM EDT [facility] Comment:Supplemental ranges: <140 mg/dL before meals <180 mg/dL all other times of the day. Blood CAPILLARY BLOOD / Unknown 08/02/2024 12:44 PM EDT 08/02/2024 12:45 PM EDT Lisette Maldonado MD POINT OF CARE TEST ORDERABLES Performing Organization Address [facility] Co de Phone Number [facility] [place] [address] * POC, GLUCOSE (08/02/2024 7:43 AM EDT) Glucometer, POC 160 65 - 199 mg/dL 08/02/2024 7:43 AM EDT [facility] Comment:Supplemental ranges: <140 mg/dL before meals <180 mg/dL all other times of the day. Blood CAPILLARY BLOOD / Unknown 08/02/2024 7:43 AM EDT 08/02/2024 7:43 AM EDT Lisette Maldonado MD POINT OF CARE TEST ORDERABLES Performing Organization Address City/[facility] Co de Phone Number [facility] [place] [address] * Phosphorus (08/02/2024 3:49 AM EDT) Phosphorus 3.3 2.5 - 4.5 mg/dL 08/02/2024 4:53 AM EDT [facility] Blood VENOUS BLOOD SPECIMEN / Unknown IP Care Team Draw / Unknown 08/02/2024 3:49 AM EDT 08/02/2024 4:24 AM EDT Lisette Maldonado MD CHEMISTRY ORDERABL ES Performing Organization Address [facility]/ZIP Co de Phone Number [facility] [place] [address] * Magnesium (08/02/2024 3:49 AM EDT) Magnesium 0.72 0.69 - 1.07 mMol/L 08/02/2024 6:53 AM EDT [facility] Blood VENOUS BLOOD SPECIMEN / Unknown IP Care Team Draw / Unknown 08/02/2024 3:49 AM EDT 08/02/2024 4:24 AM EDT Lisette Maldonado MD CHEMISTRY ORDERABL ES Performing Organization Address City/[facility]/ZIP Co de Phone Number [facility] [place] [address] * (ABNORMAL) Basic Metabolic Panel (08/02/2024 3:49 AM EDT) Glucose 136 65 - 199 mg/dL 08/02/2024 4:53 AM EDT [facility] Comment:Glucose Concentratio n >=200 mg/dL plus symptoms is consistent with Diabetes Mellitus. Blood Urea Nitrogen 11 10 - 20 mg/dL 08/02/2024 4:53 AM EDT [facility] Creatinine 0.56(L) 0.80 - 1.50 mg/dL 08/02/2024 4:53 AM EDT [facility] Sodium 138 135 - 145 mMol/L 08/02/2024 4:53 AM EDT [facility] Potassium 3.7 3.5 - 5.0 mMol/L 08/02/2024 4:53 AM EDT [facility] Chloride 102 98 - 107 mMol/L 08/02/2024 4:53 AM EDT [facility] Carbon Dioxide 24 22 - 31 mMol/L 08/02/2024 4:53 AM EDT [facility] Anion Gap 12 5 - 15 mMol/L 08/02/2024 4:53 AM EDT [facility] Calcium 9.0 8.5 - 10.5 mg/dL 08/02/2024 4:53 AM EDT [facility] Est Glomerular Filtration Rate - Male 120 mL/min/1. 73 m?? 08/02/2024 4:53 AM EDT [facility] Comment: This [...] EDT Lisette Maldonado MD CHEMISTRY ORDERABL ES [facility] [place] [address] * (ABNORMAL) CBC (with Diff) (08/02/2024 3:49 AM EDT) White Blood Cell 11.20(H) 4.00 - 9.50 x10(3)/mc L 08/02/2024 4:30 AM EDT [facility] Red Blood Cell 4.14(L) 4.58 - 5.54 x10(6)/mc L 08/02/2024 4:30 AM EDT [facility] Hemoglobin 12.0(L) 13.7 - 16.5 g/dL 08/02/2024 4:30 AM [facility] Hematocrit 37.7(L) 40.5 - 48.5 % 08/02/2024 4:30 AM [facility] Mean Cell Volume 91.1 82.9 - 93.1 fL 08/02/2024 4:30 AM [facility] Mean Cell Hemoglobin 29.0 27.5 - 32.1 pg 08/02/2024 4:30 AM [facility] Mean Cell Hemoglobin Concentration 31.8(L) 32.0 - 35.7 g/dL 08/02/2024 4:30 AM [facility] Platelet 330 145 - 357 x10(3)/mc L 08/02/2024 4:30 AM [facility] Mean Platelet Volume 10.1 7.6 - 12.9 fL 08/02/2024 4:30 AM [facility] RDW Standard Deviation 44.7 36.0 - 45.0 fL 08/02/2024 4:30 AM [facility] RDW coefficient of variation 13.4 11.4 - 13.8 % 08/02/2024 4:30 AM [facility] NRBC% auto 0.0 % 08/02/2024 4:30 AM [facility] NRBC Absolute <0.01 <0.01 x10(3)/mc L 08/02/2024 4:30 AM [facility] Neutrophil % 71.9 % 08/02/2024 4:30 AM [facility] Neutrophil Absolute (ANC) - Automated 8.04(H) 1.70 - 6.10 x10(3)/mc L 08/02/2024 4:30 AM [facility] Lymph % 19.7 % 08/02/2024 4:30 AM [facility] Lymph Absolute 2.21 0.90 - 3.20 x10(3)/mc L 08/02/2024 4:30 AM EDT [facility] Monocyte % 5.7 % 08/02/2024 4:30 AM EDT [facility] Monocyte Absolute 0.64 0.30 - 0.90 x10(3)/mc L 08/02/2024 4:30 AM EDT [facility] Eos % 1.6 % 08/02/2024 4:30 AM EDT [facility] Eos Absolute 0.18 0.00 - 0.40 x10(3)/mc L 08/02/2024 4:30 AM EDT [facility] Basophil % 0.7 % 08/02/2024 4:30 AM EDT [facility] Baso Absolute 0.08 0.00 - 0.10 x10(3)/mc L 08/02/2024 4:30 AM EDT [facility] Immature Gran % 0.4 % 4:30 AM EDT [facility] Immature Gran Absolute 0.05(H) 0.00 - 0.04 x10(3)/mc L 08/02/2024 4:30 AM EDT [facility] Blood VENOUS BLOOD SPECIMEN / Unknown IP Care Team Draw / Unknown 08/02/2024 3:49 AM EDT 08/02/2024 4:24 AM EDT Lisette Maldonado MD HEMATOLOGY ORDERAB LES [facility] [place] [address] * POC, GLUCOSE (08/02/2024 3:08 AM EDT) [facility] Signature Glucometer, POC 151 65 - 199 mg/dL 08/02/2024 3:08 AM EDT [facility] Comment:Supplemental ranges: <140 mg/dL before meals <180 mg/dL all other times of the day. Blood CAPILLARY BLOOD / Unknown 08/02/2024 3:08 AM EDT 08/02/2024 3:08 AM EDT Lisette Maldonado MD POINT OF CARE TEST ORDERABLES Performing Organization Address City/[facility]/ZIP Co de Phone Number [facility] [place] [address] * POC, GLUCOSE (08/02/2024 12:07 AM EDT) Glucometer, POC 121 65 - 199 mg/dL 08/02/2024 12:07 AM EDT [facility] Comment:Supplemental ranges: <140 mg/dL before meals <180 mg/dL all other times of the day. Blood CAPILLARY BLOOD / Unknown 08/02/2024 12:07 AM EDT 08/02/2024 12:08 AM EDT Lisette Maldonado MD POINT OF CARE TEST ORDERABLES Performing Organization Address [facility] Co de Phone Number [facility] [place] [address] * (ABNORMAL) POC, GLUCOSE (08/01/2024 7:52 PM EDT) Glucometer, POC 234(H) 65 - 199 mg/dL 08/01/2024 7:52 PM EDT [facility] Comment:Supplemental ranges: <140 mg/dL before meals <180 mg/dL all other times of the day. Blood CAPILLARY BLOOD / Unknown 08/01/2024 7:52 PM EDT 08/01/2024 7:52 PM EDT Lisette Maldonado MD POINT OF CARE TEST ORDERABLES [facility] [place] [address] * POC, GLUCOSE (08/01/2024 4:28 PM EDT) Glucometer, POC 144 65 - 199 mg/dL 08/01/2024 4:30 PM EDT [facility] Comment:Supplemental ranges: <140 mg/dL before meals <180 mg/dL all other times of the day. Blood CAPILLARY BLOOD / Unknown 08/01/2024 4:28 PM EDT 08/01/2024 4:30 PM EDT Lisette Maldonado MD POINT OF CARE TEST ORDERABLES Performing Organization Address City/[facility]/ZIP Co de Phone Number [facility] [place] [address] * (ABNORMAL) POC, GLUCOSE (08/01/2024 11:26 AM EDT) Glucometer, POC 208(H) 65 - 199 mg/dL 08/01/2024 11:26 AM EDT [facility] Comment:Supplemental ranges: <140 mg/dL before meals <180 mg/dL all other times of the day. Blood CAPILLARY BLOOD / Unknown 08/01/2024 11:26 AM EDT 08/01/2024 11:26 AM EDT Lisette Maldoando MD POINT OF CARE TEST ORDERABLES Performing Organization Address City/[facility] Co de Phone Number [facility] [place] [address] * POC, GLUCOSE (08/01/2024 10:17 AM EDT) Glucometer, POC 82 65 - 199 mg/dL 08/01/2024 10:18 AM EDT [facility] Comment:Supplemental ranges: <140 mg/dL before meals <180 mg/dL all other times of the day. Blood CAPILLARY BLOOD / Unknown 08/01/2024 10:17 AM EDT 08/01/2024 10:18 AM EDT Lisette Maldonado MD POINT OF CARE TEST ORDERABLES Performing Organization Address City/[facility]/ZIP Co de Phone Number [facility] [place] [address] * (ABNORMAL) Blood Gas, Arterial POC ([facility]01[facility]24 [facility] pH, Arterial 7.36 7.35 - 7.45 08/01/2024 9:26 AM [facility] PCO2, Arterial 43 35 - 45 mmHg 08/01/2024 9:26 AM [facility] PO2, Arterial 211(H) 85 - 104 mmHg 08/01/2024 9:26 AM [facility] Bicarbonate, Arterial 23.5 20.0 - 26.0 mmol/L 08/01/2024 9:26 AM [facility] Base Excess, Arterial -2.1 -3.0 - 3.0 mmol/L 08/01/2024 9:26 AM [facility] Hemoglobin, Arterial 12.9(L) 13.7 - 16.5 g/dL 08/01/2024 9:26 AM [facility] Oxyhemoglobin, Arterial 96.6 94.0 - 97.0 % 08/01/2024 9:26 AM [facility] Carboxyhemoglobin , Arterial 2.3 % 08/01/2024 9:26 AM [facility] Comment: Nonsmokers: 0.5-1.5% COHB ?? Smokers: Variable ??but usually less than 10% ?? Toxic: 20-30% COHB ?? Lethal: Greater than 60% COHB Methemoglobin, Arterial 0.2 <=1.5 % 08/01/2024 9:26 AM [facility] Sodium, Arterial 137 135 - 145 mmol/L 08/01/2024 9:26 AM [facility] Potassium, Arterial 3.8 3.5 - 5.0 mmol/L 08/01/2024 9:26 AM [facility] Chloride, Arterial 105 98 - 107 mmol/L 08/01/2024 9:26 AM [facility] Lactate, Arterial 2.1 0.5 - 2.2 mmol/L 08/01/2024 9:26 AM EDT [facility] IONIZED CALCIUM, ARTERIAL 1.15 1.15 - 1.33 mmol/L 08/01/2024 9:26 AM EDT [facility] Glucose, Arterial 164 65 - 199 mg/dL 08/01/2024 9:26 AM EDT [facility] Comment:Glucose Concentratio n >=200 mg/dL plus symptoms is consistent with Diabetes Mellitus. Blood ARTERIAL BLOOD / Unknown 08/01/2024 8:04 AM EDT 08/01/2024 9:26 AM EDT Lisette Maldonado MD POINT OF CARE TEST ORDERABLES [facility] [place] [address] * (ABNORMAL) POC, GLUCOSE (08/01/2024 6:23 AM EDT) Glucometer, POC 208(H) 65 - 199 mg/dL 08/01/2024 6:24 AM EDT [facility] Comment:Supplemental ranges: <140 mg/dL before meals <180 mg/dL all other times of the day. Blood CAPILLARY BLOOD / Unknown 08/01/2024 6:23 AM EDT 08/01/2024 6:25 AM EDT Lisette Maldonado MD POINT OF CARE TEST ORDERABLES [facility] [place] [address] * Scan Doc: Implantable Devices (08/01/2024 12:00 AM EDT) Narrative 08/01/2024 12:00 AM EDT Ordered by an unspecified provider. Scanning Provider MEDIA MGR SCAN EXT O RDR/RSLT documented in this encounter Visit Diagnoses Diagnosis PAD (peripheral artery disease)- Primary Peripheral vascular disease, unspecified Critical limb ischemia of left lower extremity PAD (peripheral artery disease) Peripheral vascular disease, unspecified Peripheral artery disease Peripheral vascular disease, unspecified documented in this encounter Admitting Diagnoses Diagnosis PAD [...] Wed08/01/24 at 1359, Until Wed08/03/24 at 1845, For BG 50-70 mg/dL: Oral [...] at 1415, Until Discontinued, Routine Given 08/03/2024 5:55 AM EDT 5,000 Unit s Given 08/02/2024 10:09 PM EDT 5,000 Units Given 08/02/2024 2:50 PM EDT 5,000 Units insulin glargine-ygfn (Semglee) (100 unit/mL) subcutaneous [...] 240 mg/dL in 2 hours., Routine Given 08/01/2024 8:59 PM EDT 5 Units Given 08/01/2024 4:38 PM EDT 1 Units insulin lispro (HumaLOG;Admelog) (100 unit/mL) subcutaneous injection vial 1-6 Units 1-6 Units, Subcutaneous, EVERY 4 HOURS SCHEDULED, First dose (after last modification) on Wed08/02/24 at 0000, Until Discontinued, CORRECTION BOLUS [1-6 [...] 240 mg/dL in 2 hours. , Routine Given 08/02/2024 5:18 PM EDT 5 Units Given 08/02/2024 12:46 PM EDT 5 Units Given 08/02/2024 8:28 AM EDT 1 Units insulin lispro (HumaLOG;Admelog) (100 unit/mL) subcutaneous [...] Given 08/02/2024 8:11 PM EDT 6 Units lactated Ringers 1,000 mL IV bolus at 250 mL/hr, Intravenous, ONCE, 1 dose, On Wed08/01/24 at 1445 New Bag 08/01/2024 2:46 PM EDT 250 mL/hr lactated ringers infusion 1,000 mL, at 100 mL/hr, Intravenous, CONTINUOUS, Starting on Wed08/01/24 at 0630, Until Wed08/01/24 at 1327, Day of Surgery (Day of Procedure) New Bag 08/01/2024 6:38 AM EDT 1,000 mLs 100 mL/hr lactulose (Chronulac) (0.67 gram/mL) oral liquid 20 [...] bowel medications ordered. , Routine potassium chloride ER (Klor-Con M) crystal tablet [...] chew, or suck on tablet., Routine Given 08/02/2024 5:55 AM EDT 40 mEq protriptyline (Vivactil) tablet 10 mg 10 mg, [...] Given 08/01/2024 9:13 PM EDT 5 mLs documented in this encounter Active and Recently [...] Escobar RN) 0302 (Given - Provider: Lauren Zavala RN)0826 (Given - Provider: Jeramy Escobar RN)1450 (Given - Provider: Jeramy Esocbar RN)2011 (Given - Provider: Lauren Zavala RN) [...] Discontinued, Routine 1437 (Given - Provider: Jeramy Escobar RN)211 (Given - Provider: Isabel Smart RN) 0551 (Given - Provider: Lauren Zavala RN)1450 (Given - Provider: Jeramy Escobar RN)220 (Given - Provider: Lauren Zavala RN) 0555 (Given - Provider: Lauren Zavala, DAVID) insulin glargine-ygfn (Semglee) (100 unit/mL) subcutaneous injection vial 50 Units 50 Units, Subcutaneous, NIGHTLY, First dose on Wed08/01/24 at 2100, Until Discontinued, Routine 210 (Given - Provider: Lauren Zavala, DAVID) 2010 (Given - Provider: Lauren Zavala, DAVID) insulin lispro (HumaLOG;Admelog) (100 unit/mL) subcutaneous injection vial 0-19 Units 0-19 Units, Subcutaneous, 3 TIMES DAILY WITH MEALS, First dose on Wed08/03/24 at 0800, Until Discontinued, MEAL ASSOCIATED Give 1 unit: 4 grams of carbohydrate Hold if not eating or if BG less than 70 mg/dL., Routine 0823 (Given - Provider: Jeramy Escobar RN)1303 (Given - Provider: Jeramy Escobar RN) insulin [...] than 240 mg/dL in 2 hours., Routine 163 (Given - Provider: Jeramy Escobar RN)2058 (Given - Provider: Lauren Zavala RN) insulin lispro (HumaLOG;Admelog) (100 unit/mL) subcutaneous injection vial 1-6 Units (CANCELED) 1-6 Units, Subcutaneous, EVERY 4 HOURS SCHEDULED, First dose (after last modification) on Wed08/02/24 at 0000, Until Discontinued, CORRECTION BOLUS [1-6 [...] Zavala RN)0828 (Given - Provider: Jeramy Escobar, RN)1246 (Given - Provider: Jeramy Escobar, RN)1718 (Given - Provider: Jeramy Escobar, RN) insulin lispro (HumaLOG;Admelog) (100 unit/mL) subcutaneous [...] Routine 2010 (Given - Provider: Lauren Zavala RN)230 (Given - Provider: Lauren Zavala RN) 040 (Given - Provider: Lauren Zavala RN)0800 (Hold - Provider: Jeramy Escobra RN - Reason: Contraindicated)1200 (Not Given - [...] Until Discontinued, Hold for SBP <100, Routine 0826 (Given - Provider: Jeramy Escobar RN) 0823 (Given - Provider: Jeramy Escobar RN) metoprolol succinate XL (Toprol-XL) tablet 25 mg 25 mg, Oral, DAILY, First dose on Wed08/02/24 at 0900, Until Discontinued, DO NOT CRUSH OR OPEN, hold for SBP <100, Routine 0826 (Given - Provider: Jeramy Escobar RN) 0823 (Given - Provider: Jeramy Escobar RN) pantoprazole [...] 40 mEq, Oral, ONCE, 1 dose, On 9/25/24 at 0615, May dissolve if unable to [...] Patient/family refused) 0826 (Given - Provider: Jeramy Escobar RN)2100 (Not Given - Provider: Lauren Zavala RN - Reason: Patient/family refused) 0823 (Given - Provider: Jeramy Escobar RN) sodium chloride 0.9 % (flush) (BD PosiFlush Normal Saline 0.9) flush 5 mL 5 mL, Intravenous, 2 TIMES DAILY, First dose on Wed08/01/24 at 1415, Until Discontinued, Recovery (Recovery-Hospital Unit), Routine 1446 (Given - Provider: Jeramy Escobar, RN)2112 (Given - Provider: Isabel Smart RN) 09 (Not Given - Provider: Jeramy Escobar, RN - Reason: Contraindicated)2017 (Given - Provider: Lauren Zavala RN) 08 (Given - Provider: Jeramy Escobar, DAVID) Continuous Medication Order 08/01/2024 08/02/2024 08/03/2024 lactated [...] Intravenous, EVERY 15 MIN PRN, Starting on e 08/01/24 at 1359, Until Angelita 08/03/24 at 1845, [...] Routine 1331 (Given - Provider: Shannon Haney RN)2126 (Given - Provider: Lauren Zavala, DAVID) 0302 (Given - Provider: Lauren Zavala, DAVID)0825 (Given - Provider: Jeramy Escobar, DAVID)1238 (Given - Provider: Jeramy Escobar, DAVID)2011 (Given - Provider: Lauren Zavala, DAVID) 0308 (Given - Provider: Lauren Zavala, DAVID)0822 (Given - Provider: Jeramy Escobar, DAVID) oxyCODONE [...] 1331 (See Alternative - Provider: Shannon Haney RN)2126 (See Alternative - Provider: Lauren Zavala RN) 0302 (See Alternative - Provider: Lauren Zavala RN)0825 (See Alternative - Provider: Jeramy Escobar RN)1238 (See Alternative - Provider: Jeramy Escobar RN)2011 (See Alternative - Provider: Lauren Zavala RN) 0308 (See Alternative - Provider: Lauren Zavala [...] Jeramy Escobar RN)2211 (Given - Provider: Lauren Zavala RN) 0555 (Given - Provider: Lauren Zavala RN) polyethylene glycoL (Miralax) packet 17 g(Linked [...] Wed08/01/24 at 1359, Until Wed08/03/24 at 1845, For BG 50-70 mg/dL: Oral [...] Routine documented in this encounter Care Teams Porcelain Technician Relationship Specialty Start Date End Date None None PCP - General 05/27/24 09/17/24 documented as of this encounter
--- OUTSIDE RECORDS SUMMARY | 2024-09-20 08:22 | XMS_ITS | Encounter Summary ---
Author Organization [facility] [place] [address] Care Team Providers Care All Around Gear Machine Operator Name Role Phone None Primary Care Provider Unavailabl e Reason for Visit * Auth/Cert (Routine) Specialty Diagnoses / Procedures Referred By Contac t Referred To Contact Diagnoses Peripheral artery disease Ischemic foot Procedures EMERGENCY KIMBERLYI Thony Garcia MD [facility] DR [place] [address] [facility] Referral ID Status Reason Start Date Expiration Date Visits Re quested Visits Authorized [id number] 1 1 Encounter Details Date Type Department Care Team (Late st Contact Info) Description 07/19/2024 8:57 AM EDT Anesthesia Event [place] [id number] Penny Mathias MD [facility] DR ANESTHESIOLOGY [place] [address] Diana Patiño Anesthesia Record Procedure Summary Procedure [...] toe 07/19/24 0946 by Alan Tobias RN Wound 07/15/24; 1900; Y; L eft; second toe; neuropathic wound/ulcer; 2nd toe amp; LDA not present upon assessment; 07/19/24; 2151 07/15/24 190 by Jay Ignacio RN 07/19/24 215 by Taylor Jonas RN PIV 07/16/24; 1845; qief-hld-axoxrw catheter system; 22 gauge, 1.75 in length; median vein (underside of arm), left; Ultrasound Guidance; Yes - US guidance used but Image NOT saved; Erick Ponce RN, VAS; distraction, tolerated well, appears comfortable; 0; site symptomatic; 07/21/24; 0008 07/16/24 1845 by Erick Ponce RN 07/21/24 0008 by Carlos Enrique Knowles RN PIV 07/18/24; 1027; nlns-gvl-mlyyfh catheter system; 22 gauge, 1.75 in length; cephalic vein (lateral side of arm), right; Ultrasound Guidance; Yes - US guidance used but Image NOT saved; Kwabena Chávez RN VAS; distraction, tolerated well; 07/21/24; 1747 07/18/24 1027 by Jorge Torres RN 07/21/24 1747 by Nava Huggins, RN Supraglottic Mask Ventilation: Ad junct (2); [...] drink = 0.6 oz pur e alcohol) [facility] Utilities Answer Date Recorded In the [...] any time in the past 12 m [facility], were you homeless or living in a care home (including now)? No 07/17/2024 IPV Inpatient Questions [...] Procedure Summary Date: 07/19/24 Room / Location: [address] MAIN OR Anesthesia Start: 856 Anesthesia Stop: 1111 Procedure: AMPUTATION TOE, METATARSO-PHALANGEAL JOINT (WRVU 3.51) (Left: Toe) Diagnosis: (peripheral artery disease) Surgeons: Thony Garcia MD Responsible Provider: Penny Mathias MD Anesthesia Type: general ASA Status: 3 All Anesthesia Providers: Anesthesiologist: Penny Mathias MD Student Nurse College Archivist: Diana Patiño Vitals Value Taken Time BP 132/91 07/19/24 1145 Temp 36.1 ??C (97 ??F) 07/19/24 1109 Pulse 82 07/19/24 1145 Resp 15 07/19/24 1145 SpO2 93 % 07/19/24 1145 Pain Level 0 07/19/24 1145 Patient Location: PACU/[facility] Level of Consciousness: Awake and Alert Pain [...] VEIN GRAFT performed by INNA TOVAR at [facility] MAIN OR PRO ENDOSCOPY W/VIDEO-ASST VEIN HARVEST, CABG 01/04/2012 ENDOSCOPIC HARVEST VEIN(S) FOR CABG performed by INNA TOVAR at [facility] MAIN OR Social History Tobacco Use [...] mg documented in this encounter Care Teams All Around Gear Machine Operator Relationship Specialty Start Date End Date None None PCP - General 05/27/24 09/17/24 documented as of this encounter
--- OUTSIDE RECORDS SUMMARY | 2024-09-20 08:22 | XMS_ITS | Encounter Summary ---
Author Organization [facility] [place] [address] Care Team Providers Care Industrial Hygiene Engineer Name Role Phone None Primary Care Provider Unavailabl e Reason for Visit * Reason Comments Hospital Transfer * Auth/Cert (Routine) Specialty Diagnoses / Procedures Referred By Contac t Referred To Contact Diagnoses Peripheral artery disease Ischemic foot Procedures EMERGENCY IPI Thony Garcia MD [facility] [place] [address] [facility] Referral ID Status Reason Start Date Expiration Date Visits Re quested Visits Authorized [id number] 1 1 Encounter Details Date Type Department Care Team (Latest Contact Info) Description 07/14/2024 6:07 PM EDT - 07/21/2024 7:15 PM EDT Hospital Encounter Surgical Unit Level 4 [place] [id number] Thony Garcia MD [facility] [place] [address] Cellulitis of foot, left; Peripheral artery disease; Critical limb ischemia of left lower extremity Discharge Disposition: Home Social History Tobacco Use Types Packs/Day Years Used Date Smoking Tobacco: Every Day Cigarettes 1 25 Started: 12/28/1986; Last attempted to quit: 12/28/2011 Alcohol Use Standard Drinks/Week Comments No 0 (1 standard drink = 0.6 oz pur e alcohol) [facility] Utilities Answer Date Recorded In the past 12 months has [employer] gas, oil, or water company threatened to [...] documented in this encounter Discharge Summaries * Vibha Tierney APRN - 07/21/2024 3:34 PM EDT Images from the original note were not included. Inpatient - Discharge Summary Patient Name: Geovanna Dixon Jr. Patient Age: 49 y.o. Birthdate: 1975 Admit date: 07/14/2024 Discharge date and time: 07/21/2024 Attending Physician: Thony Garcia MD Discharging Provider: Vibha Tierney APRN Discharging Service: Vascular Surgery Operations/Major Procedures: 07/19/24: LEFT second toe transmetatarsal amputation, closed 07/20/24: Angiogram Active Hospital Problems: Active Hospital Problems Diagnosis Peripheral artery [...] has been previously admitted to the [facility] service on 05/28 - 06/02 [...] weeks ago. Denies alcohol use. Hospital Course: Patient admitted to Vascular Surgery and started on broad spectrum IV antibiotics and therapeutic heparin gtt. MRSA PCR was negative, IV vancomycin was discontinued. Cardiology was consulted for preop optimization and risk stratification, please see final assessment below. Diabetes Management was consulted for blood glucose Insulin recommendations. Patient to OR on 07/19/24 for above procedure: Findings: Dry gangrene appreciated of the left seconddigit. Local field block performed with 4 cc of Marcaine 0.25%. Incision made at the PIP joint space, amputation performed at the transmetatarsal space. Soft feeling bone distal phalanx but no evidence of infection/ pus. Proximal bone culture obtained from the left second metatarsal. At this regionthere was hard, healthy feeling bone appreciated. Close primarily, covered with bacitracin, Xeroform, fluffs and Kerlix Patient to IR on 07/20/24 for angiogram, formal report not available for findings. Patient remained HDS and afebrile, AUOP, tolerating PO and had well managed pain. Patient worked with PT OT who cleared him for discharge to home. Patient was transitioned from heparin drip to Xarelto on day of discharge. He will take Augmentin twice daily until he returns on 08/01/24 for his revascularization. He is deemed medically ready for discharge to home. PHYSICAL EXAM: GEN: resting comfortably, NAD CHEST: comfortable work of breathing on RA CV: regular rate ABD: soft, nondistended EXTR: Left foot with dressing, cdi without strikethrough. Toe D2 TMA closed, sutures intact, no signs of infection or surrounding erythema. Well approximated. No visualized drainage, no palpable fluctuance. Patient is able to demonstrate movement of his toes and feet. Sensation intact distally. Vascular: Femoral pulses bilateral. PT and DP signals bilateral. NEURO: awake and alert, grossly intact, nonfocal, follows commands CARDIOLOGY CONSULT Assessment/Recommendations: Geovanna Dixon Jr. is a 49 y.o. male with a past medical history of CAD s/p 2V CABG (12/2011) with known patent MARTINEZ-LAD, occluded SVG-RPDA, and PCI to LCX (2012), HFmrEF / ischemic cardiomyopathy (LVEF 47%), T2DM, HTN, HLD, obesity, tobacco/substance abuse, narcolepsy/cataplexy, who initially presented to [facility] ED with left foot wounds/cellulitis and concern for limb ischemia who [facility]. Recent admit 05/2024 for short segment left popliteal occlusion; he was treated with a heparin drip and antibiotics for cellulitis with improvement. He was discharged on Xarelto 2.5mg BID, aspirin and short course of Augmentin with instructions to be seen in 1 mo [facility], which he did not show for [...] of an occluded SVG-RPDA graft with a FABRIC DESIGNER of his right coronary artery. He has [...] as an outpatient - Encourage smoking cessation Important Studies and Lab Data: Labs: CBC Lab Results Component Value Date White Blood Cell 10.11 (H) 07/21/2024 Hemoglobin 13.2 (L) 07/21/2024 Hematocrit 39.7 (L) 07/21/2024 Platelet 405 (H) 07/21/2024 Lab Results Component Value Date Sodium 138 07/21/2024 Potassium 4.1 07/21/2024 Chloride 103 07/21/2024 Carbon Dioxide 23 07/21/2024 Blood Urea Nitrogen 12 07/21/2024 Creatinine 0.55 (L) 07/21/2024 Glucose 172 07/21/2024 ABIs 9/9/24: Findings: Right Pressure (mm Hg) ELEN Waveform TBI Brachial Artery 152 Dorsalis Pedis (Ankle) Artery 167 1.10 Triphasic Posterior Tibial (Ankle) Artery 168 1.11 Triphasic Great Toe 141 0.93 Left Pressure (mm Hg) ELEN Waveform TBI Brachial Artery 149 Dorsalis Pedis (Ankle) Artery 83 0.55 [place]-Biphasic Posterior Tibial (Ankle) Artery 87 0.57 Monophasic [...] change compared to previous exam on 05/29/24. CTA aortic lower extremity runoff 07/14/2024 IMPRESSION [...] tissues between the first and second metatarsals. Discharge Condition: stable Discharge to: Home Future Appointments and Orders Future Orders Complete By [employer] [EQ161 Custom] As directed Process Instructions: Scheduling Instructions: Comments: Geovanna Dixon Jr. [address] [facility] [address] [phone] (home) Telephone Information: Diagnosis: deconditioning with Unsteady gait Significant weakness, ataxia or gait abnormality Patient's: Hgt: Ht Readings from Last 1 Encounters: 07/14/24 : 177.8 cm (5' 10) Wgt: Wt Readings from Last 1 Encounters: 07/14/24 : 99.8 kg (220 lb) VENDOR: [employer] Ordering: Front wheel walker Deliver to [facility] hospital room #: 448A Questions: Device Needed: WALKER (E0143) Patient Height (cm): 177.8 cm (5' 10) Patient Weight: 99.8 kg (220 lb) Diagnosis: Weakness of extremity Anticoagulation & Antiplatelet: Anticoagulation: Agent: xarelto 2omg Indication: arterial patency Intended Duration: TBC Antiplatelet: Agent: ASA Indication: ASCVD Intended Duration: life long For questions regarding these medications, please contact: vascular surgery Discharge Medications: Your Medications New Medications Dose Details amoxicillin-clavulanate 875-125 mg tablet Commonly known as: Augmentin Take 1 tablet by mouth 2 times daily for 12 days. 1 tablet Quantity: 24 tablet Refills: 0 freestyle lite strips 1 strip by Other route 3 times daily. Use as instructed Indications: diabetes Generic drug: blood sugar diagnostic strips Replaces: blood sugar diagnostic strips Strip 1 each Quantity: 100 each Refills: 1 rivaroxaban 20 mg tablet Commonly known as: Xarelto Take 1 tablet by mouth daily. 20 mg Quantity: 30 tablet Refills: 11 Continued medications with new dosing Dose Details * insulin lispro 100 unit/mL Insulin Pen Commonly known as: humaLOG KwikPen Inject SQ 3 times daily before meals: 10 unit meal dose plus sliding scale 1:20>140 - see insulin chart for instructions Indications: type 2 diabetes mellitus What changed: Another medication with the same name was added. Make sure you understand how and when to take each. Quantity: 15 mL Refills: 0 * insulin lispro 100 unit/mL Insulin Pen Commonly known as: humaLOG KwikPen Inject 5-25 Units subcutaneously 3 times daily (with meals). Indications: type 2 diabetes mellitus,whatver the most affordable version is for his insurance What changed: You were already taking a medication with the same name, and this prescription was added. Make sure you understand how and when to take each. 5-25 Units Quantity: 15 mL Refills: 1 insulin needles (disposable) 32 gauge x 5/32 Needle Inject 1 each subcutaneously daily. Indications: diabetes What changed: when to take this 1 each Quantity: 100 each Refills: 1 * lancets Misc Commonly known as: FreeStyle Lancets by Other route 2 times daily as needed. 1 box = 100 lancets Indications: prediabetes now s/p CABG What changed: Another medication with the same name was added. Make sure you understand how and when to take each. Quantity: 100 each Refills: 11 * FreeStyle Lancets 28 gauge Misc 1 each by Other route 3 times daily. Indications: diabetes Generic drug: lancets What changed: You were already taking a medication with the same name, and this prescription was added. Make sure you understand how and when to take each. 1 each Quantity: 100 each Refills: 0 * Lantus Solostar U-100 Insulin 100 unit/mL (3 mL) pen Inject 50 Units subcutaneously daily. Indications: type 2 diabetes mellitus Generic drug: insulin glargine What changed: You were already taking a medication with the same name, and this prescription was added. Make sure you understand how and when to take each. 50 Units Quantity: 15 mL Refills: 1 * insulin glargine 100 unit/mL (3 mL) pen Commonly known as: Lantus Inject 50 Units subcutaneously nightly. What changed: how much to take 50 Units Quantity: 3 mL Refills: 11 * metFORMIN 500 mg tablet Commonly known as: Glucophage Take 2 tablets by mouth 2 times daily. What changed: Another medication with the same name was added. Make sure you understand how and when to take each. 1,000 mg Quantity: 120 tablet Refills: 0 * metFORMIN 1,000 mg tablet Commonly known as: Glucophage Take 1 tablet by mouth 2 times daily (with meals). Indications: type 2 diabetes mellitus What changed: You were already taking a medication with the same name, and this prescription was added. Make sure you understand how and when to take each. 1,000 mg Quantity: 180 tablet Refills: 1 * This list has 8 medication(s) that [...] 1,000 mg Quantity: 30 tablet Refills: 0 * aspirin EC 81 mg EC (DR) tablet Take 1 tablet by mouth daily. 81 mg Quantity: 30 tablet Refills: 11 * aspirin EC 81 mg EC (DR) tablet Take 1 tablet by mouth daily. 81 mg Quantity: 30 tablet Refills: 3 atorvastatin 80 mg tablet Commonly known as: Lipitor Take 1 tablet by mouth every evening. 80 mg Quantity: 90 tablet Refills: 3 empagliflozin 25 mg tablet Commonly known as: Jardiance Take 1 tablet by mouth daily. 25 mg Quantity: 30 tablet Refills: 0 losartan 50 mg tablet Commonly [...] every 8 hours. 10 mg Refills: 0 Trulicity 1.5 mg/0.5 mL Pen Injector Inject 0.5 mLs subcutaneously once a week. Indications: type 2 diabetes mellitus Generic drug: dulaglutide 1.5 mg Quantity: 2 mL Refills: 11 venlafaxine 75 mg tablet Commonly known as: Effexor Take 225 mg by mouth daily. 225 mg Refills: 0 * This list has 2 medication(s) that are the same as other medications prescribed for you. Read thedirections carefully, and ask your doctor or other care provider to review them with you. STOPPED Medications blood sugar diagnostic strips Strip Commonly known as: freestyle lite strips Replaced by: freestyle lite strips methylphenidate 20 mg tablet Commonly known as: Ritalin Updated Allergies/ADRs: No Known Allergies Follow-up Recommendations for Providers: Will return on 08/01/24 for revascularization. Instructions Given to Patient at Discharge: Patient [...] Blood thinner have been sent to your [facility] in [facility]. Anticoagulation: xarelto 20 mg daily Call [...] For any problems or questions please call [phone] For issues on weeknights after 5pm and weekends please call [phone] and ask for the Vascular Fellow air support control officer. Geovanna-for your diabetes! Most important thing is [...] day to have your insulin doses adjusted. Vibha Tierney APRN documented in this encounter Discharge Instructions * Discharge Instructions* Vibha Tierney APRN - 07/20/2024 10:13 AM EDT [facility] Interventional Radiology Post Angiography Instructions Procedure: VS [...] or hoildays, call and ask for the president celebrity acquistion air support control officer. OR Vascular Department at until 4:45pm. After 4:45pm call and ask for the Vascular resident air support control officer. 10. If you are a diabetic and [...] will be scheduled for revascularization on 08/01/24. Chetna receive a phone call from our OR coordinator with instructions for how to proceed. You will be on an antibiotic until we see you again. Prescriptions for the antibiotic and Blood thinner have been sent to your [facility] in [facility]. Anticoagulation: xarelto 20 mg daily Call [...] For any problems or questions please call [phone] For issues on weeknights after 5pm and weekends please call [phone] and ask for the Vascular Fellow air support control officer. Geovanna-for your diabetes! Most important thing is [...] instructed Indications: diabetes 100 each 1 07/21/2024 FreeStyle Lancets 28 gauge MiscIndications:shilpa betes mellitus 1 each by Other route 3 times daily. Indications: diabetes 100 each 07/21/2024 metFORMIN (Glucophage) 1,000 mg tabletIndications:t ype 2 diabetes mellitus Take 1 tablet by mouth 2 times daily (with meals). Indications: type 2 diabetes mellitus 180 tablet 1 07/21/2024 Lantus Solostar U-100 Insulin 100 unit/mL [...] for 12 days. 24 tablet 08/03/2024 08/15/2024 amoxicillin-clavula florence (Augmentin) 875-125 mg tablet Take 1 tablet by mouth 2 times daily for 12 days. 24 tablet 07/21/2024 08/03/2024 aspirin 81 mg EC tablet Take 1 tablet by mouth daily. 30 tablet 11 08/22/2013 08/03/2024 documented as of this encounter Progress Notes [...] to HCP Completion of AVS * Thuy Jiang APRN - 07/21/2024 12:26 PM EDT Images from [...] Carb Controlled 60/60/75g Monitoring: BG Q4 Discharge Planning/long-term diabetes care: Medications - Outpatient treatment regimen [...] 3.51) performed by Thony Garcia MD at [facility] MAIN OR PRO CABG, ARTERY-VEIN, SINGLE 01/04/2012 @CABG, VENOUS & ARTERIAL GRAFT;SINGLE VEIN GRAFT performed by INNA TOVAR at [facility] MAIN OR PRO ENDOSCOPY W/VIDEO-ASST VEIN HARVEST, CABG 01/04/2012 ENDOSCOPIC HARVEST VEIN(S) FOR CABG performed by INNA TOVAR at [facility] MAIN OR Active Non-Hospital Problems Diagnosis [...] weight bearing in forefoot offloading shoe LLE isamar duff Balance: Sitting Static: good, independent Sitting Dynamic: [...] Anne PT, Doctor of Physical Therapy Pager: [phone] Physical Therapy Inpatient Rehabilitation Department * Carlos [...] Anne PT, Doctor of Physical Therapy Pager: [phone] Physical Therapy Inpatient Rehabilitation Department * Hailey Nick RN - 07/20/2024 10:00 AM EDT ANGIO NURSING DATABASE Name: Geovanna Dixon Jr. Date of : 1975 AGE: 49 y.o. Address: [address] [facility] [address] Phone: [phone] (home) Mobile: Telephone Information: Referring Provider: Herminio [...] (H) 07/20/2024 PLATELET 283 06/02/2024 * Thuy Jiang, BORE MILL OPERATOR FOR PLASTIC - 07/20/2024 8:49 AM EDT Images from [...] [phone] ASSESSMENT Geovanna Dixon is a 49 y.o. years old male [...] Carb Controlled 60/60/75g Monitoring: BG Q4 Discharge Planning/long-term diabetes care: Medications - Outpatient treatment regimen [...] AM EDT Vascular Surgery Pre-Angio Note Geovanna Dixon Jr. HPI: Geovanna Dixon Jr. is a 49 [...] vial 1-11 Units 1-11 Units Subcutaneous Q4H [facility] Cristiano Jones MD 5 Units at 07/20/24 0342 insulin [...] 10% infusion 250 mL Intravenous Q15 Min KENNEDYN Cristiano Jones MD Or glucagon (Glucagen) (1 [...] Q6H PRN Cristiano Jones MD No current [facility]-ordered outpatient medications on file. Allergies No Known [...] ASA II Rubio Grimaldo MD Vascular Surgery [facility] Vascular Surgery Floor Pager: [phone] Vascular Surgery Consult Pager: [phone] * Rubio Grimaldo MD - 07/20/2024 8:00 AM EDT Vascular Surgery Progress Note Geovanna [...] has been previously admitted to the [facility] service on 05/28 - 06/02 [...] Hyperlipidemia Depression Narcolepsy Scheduled Medications: insulin lispro 1-11 Units Subcutaneous Q4H JOSE insulin lispro 0-20 Units Subcutaneous TID WC insulin glargine (Lantus;Semglee) (100 unit/mL) subcutaneous injection 50 Units Subcutaneous Nightly protriptyline 10 mg Oral TID piperacillin-tazobactam 3.375 g Intravenous Q8H senna-docusate 2 tablet Oral BID aspirin EC 81 mg Oral Daily atorvastatin 80 mg Oral QPM losartan 50 mg Oral Daily metoprolol succinate XL 25 mg Oral Daily pantoprazole EC 40 mg Oral Daily venlafaxine 225 mg Oral Daily sodium chloride 0.9 % (flush) 5 mL Intravenous BID Operations This Hospitalization: 07/19: left D2 TMA, closed 24-Hour Interval Events / Subjective: - NAEO, HDS, +440 since adm, BM 07/17, self void - WBC 16 (13), otherwise labs stable - MRSA - negative Objective: Temp: [36.1 ??C (96.9 ??F)-36.9 ??C (98.4 ??F)] Heart Rate: [74-78] Resp: [8-20] BP: (112-160)/(75-101) SpO2: [93 %-100 %] Heart Rate from SpO2: [73 bpm-91 bpm] BMI: Weight: 99.8 kg (220 lb) (07/14/24 2226) BMI (Calculated): 31.56 BMI Classification: Obese Intake/Output Summary (Last 24 hours) at 07/20/20242040 Last data filed at 07/20/2024 1800 Gross per 24 hour Intake 2850 ml Output 2500 ml Net 350 ml PHYSICAL EXAM: GEN: resting comfortably, NAD CHEST: comfortable work of breathing on RA CV: regular rate ABD: soft, nondistended EXTR: Left foot with dressing, cdi without strikethrough. Toe D2 TMA closed, sutures intact, no signs of infection or surrounding erythema. Well approximated. No visualized drainage, no palpable fluctuance. Patient is able to demonstrate movement of his toes and feet. Sensation intact distally. Vascular: Femoral pulses bilateral. PT and DP signals bilateral. NEURO: awake and alert, grossly intact, nonfocal, follows commands Labs: Recent Labs 07/20/24 03407/19/2434407/18/24 033 WBC 16.61* 12.45* 11.56* HGB 13.0* 13.6* 13.4* HCT 39.2* 41.0 40.2* PLATELET 458* 421* 392* Recent Labs 07/20/24 03407/19/24 03407/18/24 033 NA 135 138 136 K 4.2 3.9 4.3 CL 102 103 101 CO2 21* 23 23 BUN 12 7* 8* CREATININE 0.53* 0.56* 0.53* PHOS 3.4 4.3 3.7 CALCIUM 9.4 9.6 9.2 Microbiology: Microbiology Results (last 7 days) Procedure Component Value - Date/Time Anaerobic Culture [[id number]] Collected: 07/19/24950 Lab Status: Preliminary result Specimen: Bone from Toe(s), Left Foot Updated: 07/20/24 1420 Anaerobic Culture No anaerobic organisms isolated to date Fungus culture [[id number]] Collected: 07/19/24950 Lab Status: Preliminary result Specimen: Bone from Toe(s), Left Foot Updated: 07/20/24 0931 Fungus Culture No fungus isolated to date Bone Culture [[id number]] Collected: 07/19/24950 Lab Status: Preliminary result Specimen: Bone from Toe(s), Left Foot Updated: 07/20/24 0650 Bone Culture No growth to date Gram Stain No neutrophils seen No microorganisms seen MRSA PCR Screen [[id number]] (Normal) Collected: 07/16/24 1407 Lab Status: Final result Specimen: Swab from Nares Updated: 07/17/24 1804 MRSA PCR Not Detected Narrative: This test was performed using the Xpert MRSA NxG test kit and is run on the [employer] Dx System. This test is cleared by the U.S. Food and Drug Administration for clinical use and its performance characteristics have been verified by the [facility] at [facility]. This test was performed using the Xpert MRSA NxG test kit and is run on the [employer]pert Dx System. This test is cleared by the U.S. Food and Drug Administration for clinical use and its performance characteristics have been verified by the [facility] [employer] [facility] at [facility]. New Studies: ABIs 07/17/24: Findings: Right Pressure (mm Hg) ELEN Waveform TBI Brachial Artery 152 Dorsalis Pedis (Ankle) Artery 167 1.10 Triphasic Posterior Tibial (Ankle) Artery 168 1.11 Triphasic Great Toe 141 0.93 Left Pressure (mm Hg) ELEN Waveform TBI Brachial Artery 149 Dorsalis Pedis (Ankle) Artery 83 0.55 [place]-Biphasic Posterior Tibial (Ankle) Artery 87 0.57 Monophasic [...] have questions please contact the health hospice care consultant that requested your imaging first. Angiogram Aortic [...] 2.6 cm vessel length at and just [id number], similar to prior. Anterior tibial artery: No [...] have questions please contact the health hospice care consultant that requested your imaging first. Assessment & [...] of left D2 TMA, closed on 07/19. He tolerated the procedure well and offers no complaints this morning. He will go to IR today for LLE angiogram. PLAN BY SYSTEM N: protriptyline, venlafaxine, prn tylenol CV: losartan, metoprolol, atorvastatin, cardiology consulted, appreciate recs Pulm: IS GI: protonix, bowel reg, prn compazine, prn zofran /FE: ID: [email or web address] Heme: resume hep gtt after IR, aspirin, SCDs Diet: NPO for OR, resume CCD level 2 when returns from OR/IR Endo: SS insulin DISPO: Floor, will need inpatient services for at least 24hours Code status: Full Rubio Grimaldo MD 07/20/2024 Pager: [phone] * MinFallon MD - 07/19/2024 3:21 PM EDT Post-Operative Check Geovanna Dixon Jr. is a 49 y.o. male s/p Procedure(s): AMPUTATION Left 2nd TOE, METATARSO-PHALANGEAL JOINT (WRVU 3.51) S: Pain controlled. No nausea/vomiting. No chest pain or SOB. Has not ambulated yet or voided yet. Staying NPO for possible angio later today. O: Temp: [36.1 ??C (97 ??F)-36.4 ??C (97.5 ??F)] Heart Rate: [77-82] Resp: [11-15] BP: (128-138)/(86-93) SpO2: [93 %-100 %] Heart Rate from SpO2: [77 bpm-85 bpm] I/O last 3 completed shifts: In: 3795.3 [P.O.:650; I.V.:2795.3; IV Piggyback:350] Out: 5225 [Urine:5225] I/O this shift: In: 600 [I.V.:600] Out: 0 Recent Results (from the past 24 hour(s)) POC, GLUCOSE Result Value Ref Range Glucometer, POC 185 65 - 199 mg/dL POC, GLUCOSE Result Value Ref Range Glucometer, POC 186 65 - 199 mg/dL Magnesium Result Value Ref Range Magnesium 0.89 0.69 - 1.07 mMol/L Phosphorus Result Value Ref Range Phosphorus 4.3 2.5 - 4.5 mg/dL CBC (with Diff) Result Value Ref Range White Blood Cell 12.45 (H) 4.00 - 9.50 x10(3)/mcL Red Blood Cell 4.72 4.58 - 5.54 x10(6)/mcL Hemoglobin 13.6 (L) 13.7 - 16.5 g/dL Hematocrit 41.0 40.5 - 48.5 % Mean Cell Volume 86.9 82.9 - 93.1 fL Mean Cell Hemoglobin 28.8 27.5 - 32.1 pg Mean Cell Hemoglobin Concentration 33.2 32.0 - 35.7 g/dL Platelet 421 (H) 145 - 357 x10(3)/mcL Mean Platelet Volume 9.4 7.6 - 12.9 fL RDW Standard Deviation 41.3 36.0 - 45.0 fL RDW coefficient of variation 13.1 11.4 - 13.8 % NRBC% auto 0.0 % NRBC Absolute 0.00 0.00 - 0.00 x10(3)/mcL Neutrophil % 66.6 % Neutrophil Absolute (ANC) - Automated 8.29 (H) 1.70 - 6.10 x10(3)/mcL Lymph % 22.6 % Lymph Absolute 2.81 0.90 - 3.20 x10(3)/mcL Monocyte % 7.5 % Monocyte Absolute 0.93 (H) 0.30 - 0.90 x10(3)/mcL Eos % 1.9 % Eos Absolute 0.24 0.00 - 0.40 x10(3)/mcL Basophil % 0.8 % Baso Absolute 0.10 0.00 - 0.10 x10(3)/mcL Immature Gran % 0.6 % Immature Gran Absolute 0.08 (H) 0.00 - 0.04 x10(3)/mcL Basic Metabolic Panel Result Value Ref Range Glucose 117 65 - 199 mg/dL Blood Urea Nitrogen 7 (L) 10 - 20 mg/dL Creatinine 0.56 (L) 0.80 - 1.50 mg/dL Sodium 138 135 - 145 mMol/L Potassium 3.9 3.5 - 5.0 mMol/L Chloride 103 98 - 107 mMol/L Carbon Dioxide 23 22 - 31 mMol/L Anion Gap 12 5 - 15 mMol/L Calcium 9.6 8.5 - 10.5 mg/dL Est Glomerular Filtration Rate - Male 120 mL/min/1.73 m?? POC, GLUCOSE Result Value Ref Range Glucometer, POC 118 65 - 199 mg/dL Heparin (unfractionated) Level Result Value Ref Range UF Heparin 0.42 IU/mL POC, GLUCOSE Result Value Ref Range Glucometer, POC 195 65 - 199 mg/dL Bone Culture Specimen: Toe(s), Left Foot; Bone Result Value Ref Range Gram Stain No neutrophils seen Gram Stain No microorganisms seen POC, GLUCOSE Result Value Ref Range Glucometer, POC 111 65 - 199 mg/dL POC, GLUCOSE Result Value Ref Range Glucometer, POC 143 65 - 199 mg/dL Physical Exam Gen: AOx3, NAD, resting comfortably CVS: Normal HR Resp: Breathing comfortably on RA Abd: Soft, non tender, nondistended Ext: SCDs in place, L foot wrapped with kerlex, c/d/i AP Geovanna Dixon Jr. is a 49 y.o. male s/p Left 2nd toe amputation, metatarsophalangeal joint currently in stable condition and recovering well. Remains NPO for possible angiogram later today. - NPO diet (Give Meds) - Pain well controlled - Hemodynamically stable - UOP unmeasured, has not voided since surgery Fallon Oliva MD 07/19/2024 * Cynthia Solorzano RN - 07/19/2024 11:42 AM EDT Handoff from DAVID Howard. Patient alert, VSS. 1147 Report called to DAVID Alonso. * Oli Call PT - 07/19/2024 10:33 AM EDT Physical Therapy Note Pt in the OR this morning, please update activity orders as appropriate post today's procedures. PT will follow up as appropriate. Thanks. Oli Call, PT Beeper# [phone] * María Carranza APRN - 07/19/2024 9:54 [...] has been previously admitted to the [facility] service on 05/28 - 06/02 [...] 38.8* PLATELET 421* 392* 367* Recent Labs 07/19/2434407/18/2433207/17/2434107/16/24 1539 NA 138 136 135 -- K 3.9 4.3 3.7 3.9 CL 103 101 103 -- CO2 23 23 21* -- BUN 7* 8* 9* -- CREATININE 0.56* 0.53* 0.49* -- PHOS 4.3 3.7 3.6 -- CALCIUM 9.6 9.2 9.1 -- Microbiology: Microbiology Results (last 7 days) Procedure Component Value - Date/Time MRSA PCR Screen [[id number]] (Normal) Collected: 07/16/24 1407 Lab Status: Final result Specimen: Swab from Nares Updated: 07/17/241803 MRSA PCR Not Detected Narrative: This test was performed using the Xpert MRSA NxG test kit and is run on the [employer] Shared Dx System. This test is cleared by the U.S. Food and Drug Administration for clinical use and its performance characteristics have been verified by the [facility] at [facility]. This test was performed using the Xpert MRSA NxG test kit and is run on the [employer] Dx System. This test is cleared by the U.S. Food and Drug Administration for clinical use and its performance characteristics have been verified by the [facility] at [facility]. New Studies: ABIs 07/17/24: Findings: Right Pressure (mm Hg) ELEN Waveform TBI Brachial Artery 152 Dorsalis Pedis (Ankle) Artery 167 1.10 Triphasic Posterior Tibial (Ankle) Artery 168 1.11 Triphasic Great Toe 141 0.93 Left Pressure (mm Hg) ELEN Waveform TBI Brachial Artery 149 Dorsalis Pedis (Ankle) Artery 83 0.55 [place]-Biphasic Posterior Tibial (Ankle) Artery 87 0.57 Monophasic [...] have questions please contact the health hospice care consultant that requested your imaging first. Angiogram Aortic [...] 2.6 cm vessel length at and just [id number], similar to prior. Anterior tibial artery: No [...] have questions please contact the health hospice care consultant that requested your imaging first. Assessment & [...] status: Full María Carranza APRN 07/19/2024 Pager: [phone] * Oli Call, PT - 07/18/2024 12:53 [...] possible need for different footwear. Assessment: Geovanna Llanos Zack was seen today for physical therapy treatment [...] 13 ; functional mobility OLI CALL, PT Pager:[phone] Physical Therapy Inpatient Rehabilitation Department * Pj, Fallon Melchor MD - 07/18/2024 10:33 AM EDT Vascular Surgery Progress Note Geovanna [...] has been previously admitted to the [facility] service on 05/28 - 06/02 [...] Hyperlipidemia Depression Narcolepsy Scheduled Medications: insulin lispro 1-11 Units Subcutaneous Q4H JOSE insulin lispro 0-20 Units Subcutaneous TID WC insulin glargine (Lantus;Semglee) (100 unit/mL) subcutaneous injection 50 Units Subcutaneous Nightly protriptyline 10 mg Oral TID piperacillin-tazobactam 3.375 g Intravenous Q8H senna-docusate 2 [...] Movement: 07/15/24 Objective: Temp: [36.4 ??C (97.5 ??F)-36.9 ??C (98.4 ??F)] Heart Rate: [86-96] Resp: [16-18] BP: (135-162)/(84-101) SpO2: [96 %-98 %] Heart Rate from SpO2: [79 bpm-91 bpm] BMI: Weight: 99.8 kg (220 lb) (07/14/24 2226) BMI (Calculated): 31.56 BMI Classification: Obese Intake/Output Summary (Last 24 hours) at 07/18/2024 1033 Last data filed at 07/18/2024 0625 Gross per 24 hour Intake 2601.7 ml Output 600 ml Net 2001.7 ml PHYSICAL EXAM: GEN: resting comfortably, NAD [...] intact, nonfocal, follows commands Labs: Recent Labs 07/18/24 0333 07/17/24 0342 07/16/24 0207 WBC 11.56* 11.02* 11.08* HGB 13.4* 13.1* 12.7* HCT 40.2* 38.8* 36.6* PLATELET 392* 367* 363* Recent Labs 07/18/24 0333 07/17/24 0342 07/16/24 1539 07/16/24 0415 07/16/24 0207 NA 136 135 -- -- 135 K 4.3 3.7 3.9 3.2* -- CL 101 103 -- -- 101 CO2 23 21* -- -- 22 BUN 8* 9* -- -- 8* CREATININE 0.53* 0.49* -- -- 0.42* PHOS 3.7 3.6 -- 3.7 -- CALCIUM 9.2 9.1 -- -- 9.0 Microbiology: - MRSA PCR pending New Studies: ABIs 07/17/24: Findings: Right Pressure (mm Hg) ELEN Waveform TBI Brachial Artery 152 Dorsalis Pedis (Ankle) Artery 167 1.10 Triphasic Posterior Tibial (Ankle) Artery 168 1.11 Triphasic Great Toe 141 0.93 Left Pressure (mm Hg) ELEN Waveform TBI Brachial Artery 149 Dorsalis Pedis (Ankle) Artery 83 0.55 [place]-Biphasic Posterior Tibial (Ankle) Artery 87 0.57 Monophasic [...] have questions please contact the health hospice care consultant that requested your imaging first. Angiogram Aortic [...] 2.6 cm vessel length at and just [id number], similar to prior. Anterior tibial artery: No [...] have questions please contact the health hospice care consultant that requested your imaging first. Assessment & [...] sugar control, further workup and operative planning. ABIs yesterday demonstrated moderate lower extremity arterial occlusive disease to the ankle and moderately severe disease in the foot. Plan for LLE angio and L 2nd toe amputation when OR scheduling permits. DM following for insulin management. MRSA negative, will d/c vancomycin and continue zosyn.BMP normalized sodium. Cards consulting for pre and postoperative risk management. PLAN BY SYSTEM N: protriptyline, venlafaxine, prn tylenol CV: losartan, metoprolol, atorvastatin Pulm: IS GI: protonix, bowel reg, prn compazine, prn zofran /FE: ID: [email or web address] Heme: hep gtt, aspirin, SCDs Endo: SS insulin DISPO: Floor, will need inpatient services for at least 24hours Code status: Full Fallon Oliva MD 07/18/2024 Vascular Surgery p.[phone] * Lakeisha Berry, BORE MILL OPERATOR FOR PLASTIC - 07/18/2024 10:00 AM EDT Glucose Management Team Inpatient Progress Note HPI Geovanna Dixon Jr. is a 49 y.o. male from [place], [place], with PMH significant for T2DM IDDM [...] management and to provide a review of long term care phlebotomist diabetes care. 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 Lakeisha Berry, RESHMA, DNP, -[facility] Inpatient Diabetes Management Team Team pager #[phone] (DRAFT) Diabetes Discharge Instructions & Recommendations Check [...] TOVAR at [facility] MAIN OR PRO ENDOSCOPY W/VIDEO-ASST VEIN HARVEST, CABG 01/04/2012 ENDOSCOPIC HARVEST VEIN(S) FOR CABG performed by INNA TOVAR at [facility] MAIN OR Social History: Home set-up: [...] Physical Therapy: 25 Billing Code: evaluation OLI ACLL, PT Pager: [phone] Physical Therapy Inpatient Rehabilitation Department * Lakeisha Berry, BORE MILL OPERATOR FOR PLASTIC - 07/17/2024 2:00 PM EDT Glucose Management Team Inpatient Progress Note HPI Geovanna Dixon Jr. is a 49 y.o. male from [place], [place], with PMH significant for T2DM IDDM [...] management and to provide a review of half-way diabetes care. Original consult completed: 07/15 by [...] Carb Controlled 60/60/75g Monitoring: BG Q4 Discharge Planning/long-term diabetes care: Medications - Outpatient treatment regimen [...] the consulting service. Lakeisha Berry APRN, DENISSE, -[facility] Inpatient Diabetes Management Team Team pager #[phone] * Hermila White APRN - 07/17/2024 7:45 [...] has been previously admitted to the [facility] [place] service on 05/28 - 06/02 [...] WC insulin lispro 1-6 Units Subcutaneous Q4H [facility] insulin glargine (Lantus;Semglee) (100 unit/mL) subcutaneous injection [...] nonfocal, follows commands Labs: Recent Labs 07/17/24 03407/16/24 0207 07/15/24 0045 07/14/241938 WBC 11.02* 11.08* [...] have questions please contact the health hospice care consultant that requested your imaging first. Angiogram Aortic [...] 2.6 cm vessel length at and just oszcg-civ-ihis, similar to prior. Anterior tibial artery: No [...] have questions please contact the health hospice care consultant that requested your imaging first. 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 MANAGER) - Glargine 50 units nightly; meal associated lispro ICR 1:6g; moderate correction scale q4hrs - Diabetes management team consult, appreciate recommendations - Home meds: Losartan, metoprolol, protriptyline, PPI, venlafaxine - Full code Hermila White APRN 07/17/2024 Pager: [phone] * Dai Carter RN - 07/17/2024 2:43 [...] has been previously admitted to the [facility] service on 05/28 - 06/02 [...] 363* [phone] Recent Labs 07/16/24 0415 07/16/2420607/15/244407/14/241938 NA -- 135 132* 137 K [...] have questions please contact the health hospice care consultant that requested your imaging first. Angiogram Aortic [...] 2.6 cm vessel length at and just [id number], similar to prior. Anterior tibial artery: No [...] have questions please contact the health hospice care consultant that requested your imaging first. Assessment & Plan: Geovnana Dixon Jr. is a 49 y.o. male [...] (patient unsure whether he was taking this CLINICAL ENGINEERING MANAGER) - Glargine 45 units nightly; meal associated lispro ICR 1:6g; moderate correction scale q4hrs - Diabetes management team consult, appreciate recommendations - Home meds: Losartan, metoprolol, protriptyline, PPI, venlafaxine - Full code Hermila White APRN 07/16/2024 Pager: [phone] * Dayanara Grover MD - 07/16/2024 8:52 [...] management and to provide a review of half-way diabetes care. Objective Temp: [36.8 ??C (98.2 [...] will need outpatient follow up at [facility] endocrine clinic. He lives in [place], but notes he has a truck [...] team (vascular surgery). Dayanara Grover PGY-5 [facility] Endocrinology Associated attestation - Karen Reno MD [...] regarding elevated blood sugars * Hermila White, BORE MILL OPERATOR FOR PLASTIC - 07/15/2024 2:16 PM EDT Images from [...] has been previously admitted to the [facility] Vascular Surgery service on 05/28 - 06/02 [...] or shortness of breath. - Last BM CLINICAL ENGINEERING MANAGER Objective: Temp: [36.4 ??C (97.5 ??F)-36.7 ??C [...] have questions please contact the health hospice care consultant that requested your imaging first. Angiogram Aortic [...] 2.6 cm vessel length at and just qtfqb-uye-yoka, similar to prior. Anterior tibial artery: No [...] have questions please contact the health hospice care consultant that requested your imaging first. 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 MANAGER) - Glargine 28 units nightly; meal associated lispro ICR 1:8g; moderate correction scale to [id number] - Diabetes management team consult - Home meds: Losartan, metoprolol, protriptyline, PPI, venlafaxine - Full code Hermila White APRN 07/15/2024 Pager: [phone] documented in this encounter H&P Notes * Dejah Marshall MD - 07/14/2024 10:16 PM EDT Images from the original note were not included. Vascular Surgery H&P Note Patient Name: Geovanna Dixon Jr. MR#: [id number] : 1975 Admission Date: 07/14/2024 History of [...] has been previously admitted to the [facility] V[facility] Surgery service on 05/28 - 06/02 [...] TOVAR at [facility] MAIN OR PRO ENDOSCOPY W/VIDEO-ASST VEIN HARVEST, CABG 01/04/2012 ENDOSCOPIC HARVEST VEIN(S) FOR CABG performed by INNA TOVAR at [facility] MAIN OR Home Medications: Current Outpatient [...] output data in the 24 hours ending 07/15/24416 Carb Control diet 60/60/75 CHO counting level [...] LACTATEVEN 1.1 No results for input(s): PHART, OEX5KSP, PO2ART, HBY8VZH in the last 72 hours. Studies: No [...] Dejah Marshall MD 07/15/2024 Vascular Surgery Service p.[phone] documented in this encounter Nursing Notes * [...] care plan were discussed with the patient. Llao Greenberg PA 07/14/242151 * Dejah Carrillo RN - 07/14/2024 4:47 PM EDT Sending Facility: [facility] Reason for Transfer: Vascular consult Report: Hx ischemic ulcer and DM T2. Has trouble getting to appointments at [facility] due to long drive. Decreased cap refill L left with streaking and decreased pulses. Lactate 3.2. Glucose 630. Given 10u of regular insulin, 500ml NS, 2g Cefepime, 1.5 vanc. 20g L AC. Vital Signs: Pulse: 97 B/P: 138/94 Resp: RA SPO2: 97% O2 LPM: RA GCS: 15 BGL: Temp: 36.8c Transporting Service: [place] Time of Departure: 1650 ETA: 1800 documented [...] Process Patient is insured through: Primary Insurance: [employer] MA[employer]GED MEDICARE Payor: [employer]ED MEDICARE / Plan: [employer]ED MEDICARE PPO / Product Type: *No Product type* / Secondary Insurance: N/A Prescription Coverage: Yes This plan was formulated with input from patient and team. All are in agreement with plan. IMM on shared list for RS to deliver. Phu Kennedy SUPERVISOR ENGRAVING silo erector [phone] * Plan of Care - Carlos Enrique [...] Knowles RN * Plan of Care - Lauern Zavala RN - 07/20/2024 4:59 PM EDT [...] (Interventions Implemented as Appropriate) Flowsheets (Taken 07/20/2024 3309) Plan of Care Reviewed With: patient Progress: [...] Intervention: Optimize Anesthesia Recovery Flowsheets Taken 07/20/2024 1654 Reorientation Measures: clock in view family pictures [...] has been previously admitted to the [facility] V[facility] Surgery service on 05/28 - 06/02 [...] determined. Anticipated Date of Discharge: 07/24/2024 Cristina Turner, RN, BSN * Plan of Care - [...] Implemented as Appropriate) * Op Note - Cristiano Jones MD - 07/19/2024 10:11 AM EDT [facility] Operative Note Patient Name: Geovanna Dixon Jr. : [id number] MR#: [id number] Case Date: 07/19/2024 Surgeon: Surgeons and Role: * Thony Garcia MD - Primary * Cristiano Jones MD - Resident - Assisting Preoperative diagnosis: peripheral artery disease Postoperative diagnosis: * No post-op diagnosis entered * Procedure(s) (LRB): AMPUTATION TOE, METATARSO-PHALANGEAL JOINT (WRVU 3.51) (Left) LEFT second toe transmetatarsal amputation, closed Findings: Dry gangrene appreciated of the left second digit. Local field block performed with 4 cc of Marcaine 0.25%. Incision made at the PIP joint space, amputation performed at the transmetatarsalspace. Soft feeling bone distal phalanx but no evidence of infection/ pus. Proximal bone culture obtained from the left second metatarsal. At this region there was hard, healthy feeling bone appreciated. Close primarily, covered with bacitracin, Xeroform, fluffs and Kerlix Anesthesia: General Estimated Blood Loss: 2cc Specimens removed during surgery: ID Type Source Tests Collected by Time Destination 1 : LEFT 2ND TOE (PERM) Tissue Toe(s), Left [place] [id number] A : LEFT PROXIMAL 2ND METATARSAL Bone Toe(s), Left Foot FUNGUS CULTURE, AFB CULTURE, BONE CULTURE, AEROBIC & ANAEROBIC Thony Garcia MD 07/19/2024 0951 Drains: None Surgical Closure: Other Than Primary Closure - deep and superficial layers are left completely openduring original surgery Disposition: awakened from anesthesia, extubated and taken to the recovery room in a stable condition, having suffered no apparent untoward event. Condition: doing well without problems (Please see the Surgical Encounter Summary for any Implant and Specimen details pertinent to this patient.) HPI/Surgical Indications: Geovanna Dixon Jr. is a 49 y.o. 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 Presents to the operatingroom for planned left second toe amputation Procedure Description: Geovanna Dixon Jr. was greeted in the inpatient unit. The risks of the operation were reviewed. After answering questions the patient was consented for left second toe amputation. The patient was brought to the operating room where they were placed supine on the operating room table. Moderate sedation was given. After the patient was secured on the operating room table a time out was taken at which point the patients name, procedure and correct operative site were verified. After verification of the aforementioned criteria, the patients left foot and second toe was prepared in a sterile fashion using an iodine prep solution. A field block was performed with 4 cc of Marcaine 0.25%. Adequate block was ensured using a clamp to pinch the skin. The toe was then marked witha skin marker at the planned incision line. A number 10 blade scalpel was used to incise the toe saleem fish-mouth pattern around the lateral and medial borders of the toe. The toe was then dislocated from its joint and delivered from the table. Hemostasis was obtained using electrocautery. A rongeurwas then used to further trim back the bone and to remove any articular cartilage which was present. Once trimmed back, electrocautery was again used to ensure hemostasis. The wound bed was copiouslyirrigated using 0.9% saline. The skin and subcutaneous flaps approximated well and were stayed together using a series of simple Vicryl for the deep layer and vertical mattress sutures with 3-0 prolene. This brought the skin edges together quite nicely. The toe was then padded with xerofoam gauze, several fluffs and then wrapped with a kerlix gauze. Dr. Garcia was scrubbed and present for the entire procedure. Geovanna Dixon Jr. was then brought out of moderate sedation and brought back to the PACU area in stable condition. Surgical Infection Prevention Bundle Used? N/A Associated attestation - Thony Garcia MD - 07/25/2024 10:27 PM EDT Attestation: Case Date: 07/19/2024 I was present and I participated during the entire procedure (does not need to include opening and closing). THONY GARCIA MD 07/25/2024 * Plan of Care - Cecilia Cm [...] 0 BMs this shift. Necrotic toes remained TATYANA. Pt ambulated to the restroom overnight with [...] have. Alternately, during off-hours you may call [phone] to contact a pharmacist. * Plan of [...] SUMMARY: Patient A&Ox4. VSS on RA. 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 Patient to vasc lab [...] has been previously admitted to the [facility] V[facility] Surgery serviceon 05/28 - 06/02 of [...] TOVAR at [facility] MAIN OR PRO ENDOSCOPY W/VIDEO-ASST VEIN HARVEST, CABG 01/04/2012 ENDOSCOPIC HARVEST VEIN(S) FOR CABG performed by INNA TOVAR at [facility] MAIN OR Active Non-Hospital Problems Diagnosis [...] only Total Minutes, Occupational Therapy: 23 (evaluation ([id number])) OT Evaluation Code Rationale: Diagnosis & Pertinent Co-Morbidities affecting Plan of Care: see PMHx Occupational Profile & Client History: Brief Expanded Extensive X Assessment of Occupational Performance: 1-3 performance deficits X 3-5 performance deficits 5 + performance deficits Clinical Decision Making: Low Moderate High X Clinical decision making of low complexity using standardized patient assessment instrument and measurable assessment of functional outcome. Pager: [phone] Camille Holloway OT 07/17/2024 Occupational Therapy Rehabilitation [...] surrogate would be surrogate decision maker per [place] surrogate decision making law. (Only good for 180 days) Any patient receiving care in [place] must abide by [place] law. The hierarchy for surrogate decision making [...] (i) The agent with financial power of real estate attorney or a conservator appointed in accordance [...] In the past 12 months has the [employer] gas, oil, or water [employer] threatened to shut off services in your [...] Current DME: none Home Address confirmed as: [address], [place], [place] Social & Family Supports: All names listed [...] points: Addiction likely Other Pertinent/Service Specific Information: living coach to see patient. Hx of cocaine use Health/Prescription Coverage: Primary nsurance: [employer] MANAGED MEDICARE Payor: [employer] MEDICARE / Plan: [employer] MA[employer]GED MEDICARE PPO / Product Type: *No Product type* / Secondary Insurance: N/A ONLY if patient has Medicare A&B - Does this patient have secondary insurance?: No ; Why not?: Managed Medicare Prescription Coverage: Yes Preferred Pharmacy: [facility] - [place], [place] - [address] [place] [address] [facility] [address] [facility] - [place], [place] - [address] [address] Status: Patient is a : No Primary [...] dry andstable, no open areas, no drainage. [place] with povidone- iodine daily and leave open [...] or the wound care team on pager [phone] with skin and wound care concerns or questions. * Consult Note - Cynthia Carreon - 07/17/2024 11:00 AM EDT PT sleeping RC will return. * Consult Note - Angel Oliva MD - 07/17/2024 8:52 AM EDT Images from the original note were not included. [facility] [address] CARDIOLOGY CONSULT NOTE Date of Consultation: 07/17/2024 [...] tobacco/substance abuse, narcolepsy/cataplexy, who initially presented to [facility] ED with left foot wounds/cellulitis and concern for limb ischemia who was transferred to [facility] for vascular surgery assessment. Recent admit 05/2024 [...] has been previously admitted to the [facility] Vascular Surgery service on 05/28 - 06/02 [...] Medications: insulin lispro 0-15 Units Subcutaneous TID insulin glargine (Lantus;Semglee) (100 unit/mL) subcutaneous injection [...] Intake/Output Summary (Last 24 hours) at 07/17/2024 09 Last data filed at 07/17/2024 0624 Gross [...] tobacco/substance abuse, narcolepsy/cataplexy, who initially presented to [facility] ED with left foot wounds/cellulitis and concern for limb ischemia [facility]. Recent admit 05/2024 for short segment left popliteal occlusion; he was treated with a heparin drip and antibiotics for cellulitis with improvement. He was discharged on Xarelto 2.5mg BID, aspirin and short course of Augmentin with instructions to be seen in 1 mo [facility], which he did not show for [...] of an occluded SVG-RPDA graft with a FABRIC DESIGNER of his right coronary artery. He has [...] questions or concerns arise. Angel Oliva MD, [facility] Staff Bond Runner * Plan of Care - Lauren Mitchell RN - 07/16/2024 3:04 PM EDT OUTCOME EVALUATION NOTE: OUTCOME SUMMARY: VSS on RA. No complaints of pain. Voiding adequate amounts via urinal. Pulses doppler bilaterally, wounds on left foot GENERAL ADMINISTRATOR. C/o numbness to LLE. PLAN MOVING FORWARD: [...] management and to provide a review of half-way diabetes care. Diabetes History: Geovanna Dixon Jr. [...] will need outpatient follow up at [facility] endocrine clinic. He lives in [place], but notes he has a truck [...] team (vascular surgery). Dayanara Grover PGY-5 [facility] Endocrinology Associated attestation - Karen Reno MD [...] seen eye doctor in years, his triglycerides [id number] was very high, needs recheck and aggressive [...] STAT 07/19/2024 9:5 1 AM EDT BONE CULTURE, AEROBIC & ANAEROBIC STAT 07/19/2024 9:51 AM EDT BONE CULTURE STAT 07/19/2024 9:51 AM EDT AFB CULTURE STAT 07/19/2024 9:51 AM EDT FUNGUS CULTURE STAT 07/19/2024 9:51 AM EDT SURGICAL PATHOLOGY Routine 07/19/2024 9: 49 AM EDT Amputation Toe, Mt-P Jt ([id number]) 07/19/2024 8:57 AM EDT peripheral artery disease [...] - 199 mg/dL 07/21/2024 3:44 PM EDT [facility] Comment:Supplemental ranges: <140 mg/dL before meals <180 mg/dL all other times of the day. Blood CAPILLARY BLOOD / Unknown 07/21/2024 3:43 PM EDT 07/21/2024 3:44 PM EDT Thony Garcia MD POINT OF CARE TEST O GILDA Performing Organization Address [facility] Co de Phone Number [facility] [place] [address] * (ABNORMAL) POC, GLUCOSE (07/21/2024 12:18 PM EDT) Glucometer, POC 247(H) 65 - 199 mg/dL 07/21/2024 12:20 PM EDT [facility] Comment:Supplemental ranges: <140 mg/dL before meals <180 mg/dL all other times of the day. Blood CAPILLARY BLOOD / Unknown 07/21/2024 12:18 PM EDT 07/21/2024 12:20 PM EDT Thony Garcia MD POINT OF CARE TEST O RDERAHERNANDEZ Performing Organization Address City/[facility]/ZIP Co de Phone Number [facility] [place] [address] * POC, GLUCOSE (07/21/2024 8:37 AM EDT) Glucometer, POC 163 65 - 199 mg/dL 07/21/2024 8:38 AM EDT [facility] Comment:Supplemental ranges: <140 mg/dL before meals <180 mg/dL all other times of the day. Blood CAPILLARY BLOOD / Unknown 07/21/2024 8:37 AM EDT 07/21/2024 8:38 AM EDT Thony Garcia MD POINT OF CARE TEST O RDERABLES [facility] [place] [address] * (ABNORMAL) Basic Metabolic Panel (07/21/2024 5:55 AM EDT) Glucose 172 65 - 199 mg/dL 07/21/2024 6:45 AM EDT [facility] Comment:Glucose Concentratio n >=200 mg/dL plus symptoms is consistent with Diabetes Mellitus. Blood Urea Nitrogen 12 10 - 20 mg/dL 07/21/2024 6:45 AM T [facility] Creatinine 0.55(L) 0.80 - 1.50 mg/dL 07/21/2024 6:45 [facility] Sodium 138 135 - 145 mMol/L 07/21/2024 6:45 AM EDT [facility] Potassium 4.1 3.5 - 5.0 mMol/L 07/21/2024 6:45 AM [facility] Chloride 103 98 - 107 mMol/L 07/21/2024 6:45 AM [facility] Carbon Dioxide 23 22 - 31 mMol/L 07/21/2024 6:45 AM [facility] Anion Gap 12 5 - 15 mMol/L 07/21/2024 6:45 AM [facility] Calcium 9.4 8.5 - 10.5 mg/dL 07/21/2024 6:45 AM EDT [facility] Est Glomerular Filtration Rate - Male 121 mL/min/1. 73 m?? 07/21/2024 6:45 AM EDT [facility] Comment: This patient's estimated GFR [...] AM EDT Thony Garcia MD CHEMISTRY ORDERABLES [facility] [place] [phone] * (ABNORMAL) CBC (with Diff) (07/21/2024 5:55 AM EDT) White Blood Cell 10.11(H) 4.00 - 9.50 x10(3)/mc L 07/21/2024 6:17 AM EDT [facility] Red Blood Cell 4.52(L) 4.58 - 5.54 x10(6)/mc L 07/21/2024 6:17 AM EDT [facility] Hemoglobin 13.2(L) 13.7 - 16.5 g/dL 07/21/2024 6:17 AM EDT [facility] Hematocrit 39.7(L) 40.5 - 48.5 % 07/21/2024 6:17 AM EDT [facility] Mean Cell Volume 87.8 82.9 - 93.1 fL 07/21/2024 6:17 AM [facility] Mean Cell Hemoglobin 29.2 27.5 - 32.1 pg 07/21/2024 6:17 AM [facility] Mean Cell Hemoglobin Concentration 33.2 32.0 - 35.7 g/dL 07/21/2024 6:17 AM [facility] Platelet 405(H) 145 - 357 x10(3)/mc L 07/21/2024 6:17 AM [facility] Mean Platelet Volume 9.3 7.6 - 12.9 fL 07/21/2024 6:17 AM [facility] RDW Standard Deviation 42.2 36.0 - 45.0 fL 07/21/2024 6:17 AM [facility] RDW coefficient of variation 13.2 11.4 - 13.8 % 07/21/2024 6:17 AM [facility] NRBC% auto 0.0 % 07/21/2024 6:17 AM [facility] NRBC Absolute 0.00 0.00 - 0.00 x10(3)/mc L 07/21/2024 6:17 AM [facility] Neutrophil % 64.5 % 07/21/2024 6:17 AM [facility] Neutrophil Absolute (ANC) - Automated 6.52(H) 1.70 - 6.10 x10(3)/mc L 07/21/2024 6:17 AM [facility] Lymph % 24.3 % 07/21/2024 6:17 AM [facility] Lymph Absolute 2.46 0.90 - 3.20 x10(3)/mc L 07/21/2024 6:17 AM [facility] Monocyte % 8.4 % 07/21/2024 6:17 AM [facility] Monocyte Absolute 0.85 0.30 - 0.90 x10(3)/mc L 07/21/2024 6:17 AM [facility] Eos % 1.6 % 07/21/2024 6:17 AM EDT [facility] Eos Absolute 0.16 0.00 - 0.40 x10(3)/mc L 07/21/2024 6:17 AM EDT [facility] Basophil % 0.7 % 07/21/2024 6:17 AM EDT [facility] Baso Absolute 0.07 0.00 - 0.10 x10(3)/mc L 07/21/2024 6:17 AM EDT [facility] Immature Gran % 0.5 % 6:17 AM EDT [facility] Immature Gran Absolute 0.05(H) 0.00 - 0.04 x10(3)/mc L 07/21/2024 6:17 AM EDT [facility] Blood VENOUS BLOOD SPECIMEN / Unknown IP Care Team Draw / Unknown 07/21/2024 5:55 AM EDT 07/21/2024 6:13 AM EDT Thony Garcia MD HEMATOLOGY ORDERABLE S [facility] [place] [address] * Phosphorus (07/21/2024 5:55 AM EDT) Phosphorus 3.9 2.5 - 4.5 mg/dL 07/21/2024 6:45 AM EDT [facility] Blood VENOUS BLOOD SPECIMEN / Unknown IP Care Team Draw / Unknown 07/21/2024 5:55 AM EDT 07/21/2024 6:13 AM EDT Thony Garcia MD CHEMISTRY ORDERABLES [facility] [place] [address] * Magnesium (07/21/2024 5:55 AM EDT) Magnesium 0.82 0.69 - 1.07 mMol/L 07/21/2024 6:45 AM EDT [facility] Blood VENOUS BLOOD SPECIMEN / Unknown IP Care Team Draw / Unknown 07/21/2024 5:55 AM EDT 07/21/2024 6:13 AM EDT Thony Garcia MD CHEMISTRY ORDERABLES [facility] [place] [address] * POC, GLUCOSE (07/21/2024 3:57 AM EDT) Glucometer, POC 163 65 - 199 mg/dL 07/21/2024 4:01 AM EDT [facility] Comment:Supplemental ranges: <140 mg/dL before meals <180 mg/dL all other times of the day. Blood CAPILLARY BLOOD / Unknown 07/21/2024 3:57 AM EDT 07/21/2024 4:01 AM EDT Thony Garcia MD POINT OF CARE TEST O RDERABLES [facility] [place] [address] * POC, GLUCOSE (07/20/2024 11:54 PM EDT) Glucometer, POC 190 65 - 199 mg/dL 07/20/2024 11:58 PM EDT [facility] Comment:Supplemental ranges: <140 mg/dL before meals <180 mg/dL all other times of the day. Blood CAPILLARY BLOOD / Unknown 07/20/2024 11:54 PM EDT 07/20/2024 11:58 PM EDT Thony Garcia MD POINT OF CARE TEST O RDERABLES [facility] [place] [address] * POC, GLUCOSE (07/20/2024 8:17 PM EDT) Glucometer, POC 166 65 - 199 mg/dL 07/20/2024 8:17 PM EDT [facility] Comment:Supplemental ranges: <140 mg/dL before meals <180 mg/dL all other times of the day. Blood CAPILLARY BLOOD / Unknown 07/20/2024 8:17 PM EDT 07/20/2024 8:18 PM EDT Thony Garcia MD POINT OF CARE TEST O GILDA Performing Organization Address [facility] Co de Phone Number [facility] [place] [address] * (ABNORMAL) POC, GLUCOSE (07/20/2024 3:51 PM EDT) Glucometer, POC 218(H) 65 - 199 mg/dL 07/20/2024 3:51 PM EDT [facility] Comment:Supplemental ranges: <140 mg/dL before meals <180 mg/dL all other times of the day. Blood CAPILLARY BLOOD / Unknown 07/20/2024 3:51 PM EDT 07/20/2024 3:51 PM EDT Thony Garcia MD POINT OF CARE TEST O GILDA Performing Organization Address [facility] Co de Phone Number [facility] [place] [address] * POC, GLUCOSE (07/20/2024 10:55 AM EDT) Glucometer, POC 96 65 - 199 mg/dL 07/20/2024 10:56 AM EDT [facility] Comment:Supplemental ranges: <140 mg/dL before meals <180 mg/dL all other times of the day. Blood CAPILLARY BLOOD / Unknown 07/20/2024 10:55 AM EDT 07/20/2024 10:56 AM EDT Thony Garcia MD POINT OF CARE TEST O GILDA Performing Organization Address City/State/[facility] Co de Phone Number [facility] [place] [address] * Vein Map Arm, Bilateral (07/20/2024 10:48 AM EDT) Pathologist [facility] VB Text Report Department: Vascular Surgery Lab Patient: [id number] (GEOVANNA DIXON) CPT: 54912 Referring Physician: THONY GARCIA ?? Indications: Patient [...] AM EDT Thony Garcia MD VASCULAR ORDERABLES [facility] * VS [...] has been previously admitted to the [facility] [place] on 05/28 - 06/02 [...] the sedation RN. Anabel Finney MD, MPH [facility] [place] ? Thony Garcia MD IMG IR ORDERABLES * POC, GLUCOSE (07/20/2024 8:12 AM EDT) Glucometer, POC 119 65 - 199 mg/dL 07/20/2024 8:12 AM EDT [facility] Comment:Supplemental ranges: <140 mg/dL before meals <180 mg/dL all other times of the day. Blood CAPILLARY BLOOD / Unknown 07/20/2024 8:12 AM EDT 07/20/2024 8:12 AM EDT Thony Garcia MD POINT OF CARE TEST O RDERABLES [facility] [place] [address] * (ABNORMAL) CBC (with Diff) (07/20/2024 3:42 AM EDT) White Blood Cell 16.61(H) 4.00 - 9.50 x10(3)/mc L 07/20/2024 4:23 [facility] Red Blood Cell 4.44(L) 4.58 - 5.54 x10(6)/mc L 07/20/2024 4:23 AM [facility] Hemoglobin 13.0(L) 13.7 - 16.5 g/dL 07/20/2024 4:23 AM [facility] Hematocrit 39.2(L) 40.5 - 48.5 % 07/20/2024 4:23 AM [facility] Mean Cell Volume 88.3 82.9 - 93.1 fL 07/20/2024 4:23 AM [facility] Mean Cell Hemoglobin 29.3 27.5 - 32.1 pg 07/20/2024 4:23 AM [facility] Mean Cell Hemoglobin Concentration 33.2 32.0 - 35.7 g/dL 07/20/2024 4:23 AM [facility] Platelet 458(H) 145 - 357 x10(3)/mc L 07/20/2024 4:23 AM [facility] Mean Platelet Volume 9.5 7.6 - 12.9 fL 07/20/2024 4:23 AM [facility] RDW Standard Deviation 42.5 36.0 - 45.0 fL 07/20/2024 4:23 AM [facility] RDW coefficient of variation 13.2 11.4 - 13.8 % 07/20/2024 4:23 AM [facility] NRBC% auto 0.0 % 07/20/2024 4:23 AM [facility] NRBC Absolute 0.00 0.00 - 0.00 x10(3)/mc L 07/20/2024 4:23 AM [facility] Neutrophil % 74.2 % 07/20/2024 4:23 AM [facility] Neutrophil Absolute (ANC) - Automated 12.32(H) 1.70 - 6.10 x10(3)/mc L 07/20/2024 4:23 AM [facility] Lymph % 16.5 % 07/20/2024 4:23 AM [facility] Lymph Absolute 2.74 0.90 - 3.20 x10(3)/mc L 07/20/2024 4:23 AM [facility] Monocyte % 7.5 % 07/20/2024 4:23 AM [facility] Monocyte Absolute 1.25(H) 0.30 - 0.90 x10(3)/mc L 07/20/2024 4:23 AM [facility] Eos % 0.8 % 07/20/2024 4:23 AM [facility] Eos Absolute 0.14 0.00 - 0.40 x10(3)/mc L 07/20/2024 4:23 AM [facility] Basophil % 0.4 % 07/20/2024 4:23 AM [facility] Baso Absolute 0.06 0.00 - 0.10 x10(3)/mc L 07/20/2024 4:23 AM EDT [facility] Immature Gran % 0.6 % 4:23 AM EDT [facility] Immature Gran Absolute 0.10(H) 0.00 - 0.04 x10(3)/mc L 07/20/2024 4:23 AM EDT [facility] Blood VENOUS BLOOD SPECIMEN / Unknown IP Care Team Draw / Unknown 07/20/2024 3:42 AM EDT 07/20/2024 4:09 AM EDT Thony Garcia MD HEMATOLOGY ORDERABLE S [facility] [place] [address] * (ABNORMAL) POC, GLUCOSE (07/20/2024 3:41 AM EDT) Glucometer, POC 204(H) 65 - 199 mg/dL 07/20/2024 3:41 AM EDT [facility] Comment:Supplemental ranges: <140 mg/dL before meals <180 mg/dL all other times of the day. Blood CAPILLARY BLOOD / Unknown 07/20/2024 3:41 AM EDT 07/20/2024 3:41 AM EDT Thony Garcia MD POINT OF CARE TEST O RDERABLES [facility] [place] [address] * (ABNORMAL) Basic Metabolic Panel (07/20/2024 3:41 AM EDT) Glucose 209(H) 65 - 199 mg/dL 07/20/2024 5:00 AM EDT [facility] Comment:Glucose Concentratio n >=200 mg/dL plus symptoms is consistent with Diabetes Mellitus. Blood Urea Nitrogen 12 10 - 20 mg/dL 07/20/2024 5:00 AM [facility] Creatinine 0.53(L) 0.80 - 1.50 mg/dL 07/20/2024 5:00 AM [facility] Sodium 135 135 - 145 mMol/L 07/20/2024 5:00 AM [facility] Potassium 4.2 3.5 - 5.0 mMol/L 07/20/2024 5:00 AM [facility] Chloride 102 98 - 107 mMol/L 07/20/2024 5:00 AM [facility] Carbon Dioxide 21(L) 22 - 31 mMol/L 07/20/2024 5:00 AM [facility] Anion Gap 12 5 - 15 mMol/L 07/20/2024 5:00 AM [facility] Calcium 9.4 8.5 - 10.5 mg/dL 07/20/2024 5:00 AM [facility] Est Glomerular Filtration Rate - Male 122 mL/min/1. 73 m?? 07/20/2024 5:00 AM [facility] Comment: This patient's estimated [...] AM EDT Thony Garcia MD CHEMISTRY ORDERABLES [facility] [place] [address] * Phosphorus (07/20/2024 3:41 AM EDT) Phosphorus 3.4 2.5 - 4.5 mg/dL 07/20/2024 4:40 AM EDT [facility] Blood VENOUS BLOOD SPECIMEN / Unknown IP Care Team Draw / Unknown 07/20/2024 3:41 AM EDT 07/20/2024 4:09 AM EDT Thony Garcia MD CHEMISTRY ORDERABLES [facility] [place] [address] * Magnesium (07/20/2024 3:41 AM EDT) Pathologist [facility] Magnesium 0.90 0.69 - 1.07 mMol/L 07/20/2024 4:40 AM EDT [facility] Blood VENOUS BLOOD SPECIMEN / Unknown IP Care Team Draw / Unknown 07/20/2024 3:41 AM EDT 07/20/2024 4:09 AM EDT Thony Garcia MD CHEMISTRY ORDERABLES Performing Organization Address [facility] Co de Phone Number [facility] [place] [address] * (ABNORMAL) POC, GLUCOSE (07/20/2024 12:56 AM EDT) [facility] Glucometer, POC 342(H) 65 - 199 mg/dL 07/20/2024 12:58 AM EDT [facility] Comment:Supplemental ranges: <140 mg/dL before meals <180 mg/dL all other times of the day. Blood CAPILLARY BLOOD / Unknown 07/20/2024 12:56 AM EDT 07/20/2024 12:58 AM EDT Thony Garcia MD POINT OF CARE TEST O RDERABLES Performing Organization Address City/[facility]/ZIP Co de Phone Number [facility] [place] [address] * (ABNORMAL) POC, GLUCOSE (07/19/2024 11:04 PM EDT) Glucometer, POC 296(H) 65 - 199 mg/dL 07/19/2024 11:05 PM EDT [facility] Comment:Supplemental ranges: <140 mg/dL before meals <180 mg/dL all other times of the day. Blood CAPILLARY BLOOD / Unknown 07/19/2024 11:04 PM EDT 07/19/2024 11:05 PM EDT Thony Garcia MD POINT OF CARE TEST O GILDA [facility] [place] [address] * (ABNORMAL) POC, GLUCOSE (07/19/2024 7:38 PM EDT) Glucometer, POC 251(H) 65 - 199 mg/dL 07/19/2024 7:39 PM EDT [facility] Comment:Supplemental ranges: <140 mg/dL before meals <180 mg/dL all other times of the day. Blood CAPILLARY BLOOD / Unknown 07/19/2024 7:38 PM EDT 07/19/2024 7:39 PM EDT Thony Garcia MD POINT OF CARE TEST O GILDA [facility] [place] [address] * POC, GLUCOSE (07/19/2024 4:48 PM EDT) Glucometer, POC 171 65 - 199 mg/dL 07/19/2024 4:49 PM EDT [facility] Comment:Supplemental ranges: <140 mg/dL before meals <180 mg/dL all other times of the day. Blood CAPILLARY BLOOD / Unknown 07/19/2024 4:48 PM EDT 07/19/2024 4:49 PM EDT Thony Garcia MD POINT OF CARE TEST O RDERABLES Performing Organization Address City/[facility]/ZIP Co de Phone Number [facility] [place] [address] * POC, GLUCOSE (07/19/2024 12:21 PM EDT) Glucometer, POC 143 65 - 199 mg/dL 07/19/2024 12:22 PM EDT [facility] Comment:Supplemental ranges: <140 mg/dL before meals <180 mg/dL all other times of the day. Blood CAPILLARY BLOOD / Unknown 07/19/2024 12:21 PM EDT 07/19/2024 12:22 PM EDT Thony Garcia MD POINT OF CARE TEST O RDERAHERNANDEZ Performing Organization Address [facility] Co de Phone Number [facility] [place] [address] * POC, GLUCOSE (07/19/2024 11:24 AM EDT) Glucometer, POC 111 65 - 199 mg/dL 07/19/2024 11:24 AM EDT [facility] Comment:Supplemental ranges: <140 mg/dL before meals <180 mg/dL all other times of the day. Blood CAPILLARY BLOOD / Unknown 07/19/2024 11:24 AM EDT 07/19/2024 11:24 AM EDT Thony Garcia MD POINT OF CARE TEST O RDTYESHA Performing Organization Address City/[facility]/ZIP Co de Phone Number [facility] [place] [address] * Anaerobic Culture (07/19/2024 9:51 AM EDT) Anaerobic Culture No anaerobic organisms isolated 07/23/2024 3:24 PM EDT [facility] Bone STRUCTURE OF TOE OF LEFT FOOT / Unknown 07/19/2024 9:51 AM EDT Comment:PERIPHERAL ARTERY DI SEASE Thony Garcia MD MICROBIOLOGY - GENER AL ORDERABLES Performing Organization Address [facility] Co de Phone Number [facility] [place] [address] * Bone Culture (07/19/2024 9:51 AM EDT) Bone Culture No growth 07/23/2024 12:36 PM EDT [facility] Gram Stain No neutrophils seen 07/23/2024 12:36 PM EDT [facility] Gram Stain No microorganisms seen 07/23/2024 12:36 PM EDT [facility] Bone STRUCTURE OF TOE OF LEFT FOOT / Unknown 07/19/2024 9:51 AM EDT Comment:PERIPHERAL ARTERY DI SEASE Thony Garcia MD MICROBIOLOGY - GENER AL ORDERABLES Performing Organization Address [facility] Co de Phone Number [facility] [place] [address] * AFB culture (07/19/2024 9:51 AM EDT) Acid Fast Bacilli Culture No acid fast bacilli isolated at 8 weeks. 09/13/2024 11:02 AM EST [facility] Bone STRUCTURE OF TOE OF LEFT FOOT / Unknown 07/19/2024 9:51 AM EDT 07/19/2024 10:08 AM EDT Comment:PERIPHERAL ARTERY DI SEASE Thony Garcia MD MICROBIOLOGY - GENER AL ORDERABLES Performing Organization Address City/[facility] Co de Phone Number [facility] [place] [address] * Fungus culture (07/19/2024 9:51 AM EDT) Fungus Culture No fungus isolated 08/22/2024 9:08 AM EDT [facility] Bone STRUCTURE OF TOE OF LEFT FOOT / Unknown 07/19/2024 9:51 AM EDT 07/19/2024 10:08 AM EDT Comment:PERIPHERAL ARTERY DI SEASE Thony Garcia MD MICROBIOLOGY - GENER AL ORDERABLES [facility] [place] [address] * Surgical Pathology (07/19/2024 9:49 AM EDT) Case Report Surgical Pathology Report ? Case: [id number] ? Authorizing Provider: ??Thony Garcia MD ?Collected: ? 07/19/2024 0949 ? Ordering Location: ? Main Operating Room [facility] ?? Received: ?07/19/2024 1009 ? [facility] ? Hospital ? Pathologist: ? Benjamin Shen MD ? Specimen: ?Toe(s), Left Foot, LEFT 2ND TOE (PERM) ? 07/26/2024 1:24 PM EDT [facility] Final Diagnosis A - Left second toe; amputated through the proximal phalanx: - Gangrenous necrosis; amputation margin appears uninvolved. - Largely detached nail. 07/26/2024 1:24 PM EDT [facility] Clinical Information PROVIDED: PERIPHERAL ARTERY DISEASE. 07/26/2024 1:24 PM EDT [facility] Gross Description A. Toe(s), Left [...] Sections/Process ing: Blocks submitted for decalcification: A1-A2. Pick Up Driver sections in 2 cassettes as follows: A1-A2: Complete longitudinal section of digit cmk 07/26/2024 1:24 PM EDT [facility] Result Note Routine 07/26/2024 1:24 PM EDT [facility] Tissue STRUCTURE OF TOE OF LEFT FOOT / Unknown 07/19/2024 9:49 AM EDT 07/19/2024 10:09 AM EDT Comment:PERIPHERAL ARTERY DI SEASE Thony Garcia MD PATHOLOGY/CYTOLOGY O GILDA [facility] [place] [address] * POC, GLUCOSE (07/19/2024 7:21 AM EDT) Glucometer, POC 195 65 - 199 mg/dL 07/19/2024 7:22 AM EDT [facility] Comment:Supplemental ranges: <140 mg/dL before meals <180 mg/dL all other times of the day. Blood CAPILLARY BLOOD / Unknown 07/19/2024 7:21 AM EDT 07/19/2024 7:22 AM EDT Thony Garcia MD POINT OF CARE TEST O GILDA Performing Organization Address City/[facility] Co de Phone Number [facility] [place] [address] * Heparin (unfractionated) Level (07/19/2024 6:29 AM EDT) UF Heparin 0.42 IU/mL 07/19/2024 6:44 AM EDT [facility] Comment: Heparin (anti-Xa) levels should [...] EDT Thony Garcia MD HEMATOLOGY ORDERABLE S [facility] [place] [address] * POC, GLUCOSE (07/19/2024 4:24 AM EDT) Glucometer, POC 118 65 - 199 mg/dL 07/19/2024 4:24 AM EDT [facility] Comment:Supplemental ranges: <140 mg/dL before meals <180 mg/dL all other times of the day. Blood CAPILLARY BLOOD / Unknown 07/19/2024 4:24 AM EDT 07/19/2024 4:24 AM EDT Thony Garcia MD POINT OF CARE TEST O RDERABLES Performing Organization Address City/[facility]/ZIP Co de Phone Number [facility] [place] [address] * (ABNORMAL) Basic Metabolic Panel (07/19/2024 3:45 AM EDT) Glucose 117 65 - 199 mg/dL 07/19/2024 4:40 AM EDT [facility] Comment:Glucose Concentratio n >=200 mg/dL plus symptoms is consistent with Diabetes Mellitus. Blood Urea Nitrogen 7(L) 10 - 20 mg/dL 07/19/2024 4:40 AM EDT [facility] Creatinine 0.56(L) 0.80 - 1.50 mg/dL 07/19/2024 4:40 AM EDT [facility] Sodium 138 135 - 145 mMol/L 07/19/2024 4:40 AM EDT [facility] Potassium 3.9 3.5 - 5.0 mMol/L 07/19/2024 4:40 AM EDT [facility] Chloride 103 98 - 107 mMol/L 07/19/2024 4:40 AM EDT [facility] Carbon Dioxide 23 22 - 31 mMol/L 07/19/2024 4:40 AM EDT [facility] Anion Gap 12 5 - 15 mMol/L 07/19/2024 4:40 AM EDT [facility] [facility] Calcium 9.6 8.5 - 10.5 mg/dL 07/19/2024 4:40 AM EDT [facility] Est Glomerular Filtration Rate - Male 120 mL/min/1. 73 m?? 07/19/2024 4:40 AM EDT [facility] Comment: This patient's estimated GFR [...] AM EDT Thony Garcia MD CHEMISTRY ORDERABLES [facility] [place] [address] * (ABNORMAL) CBC (with Diff) (07/19/2024 3:45 AM EDT) White Blood Cell 12.45(H) 4.00 - 9.50 x10(3)/mc L 07/19/2024 4:09 AM EDT [facility] Red Blood Cell 4.72 4.58 - 5.54 x10(6)/mc L 07/19/2024 4:09 AM [facility] Hemoglobin 13.6(L) 13.7 - 16.5 g/dL 07/19/2024 4:09 AM [facility] Hematocrit 41.0 40.5 - 48.5 % 07/19/2024 4:09 AM [facility] Mean Cell Volume 86.9 82.9 - 93.1 fL 07/19/2024 4:09 AM [facility] Mean Cell Hemoglobin 28.8 27.5 - 32.1 pg 07/19/2024 4:09 AM [facility] Mean Cell Hemoglobin Concentration 33.2 32.0 - 35.7 g/dL 07/19/2024 4:09 AM [facility] Platelet 421(H) 145 - 357 x10(3)/mc L 07/19/2024 4:09 AM [facility] Mean Platelet Volume 9.4 7.6 - 12.9 fL 07/19/2024 4:09 AM [facility] RDW Standard Deviation 41.3 36.0 - 45.0 fL 07/19/2024 4:09 AM [facility] RDW coefficient of variation 13.1 11.4 - 13.8 % 07/19/2024 4:09 AM [facility] NRBC% auto 0.0 % 07/19/2024 4:09 AM [facility] NRBC Absolute 0.00 0.00 - 0.00 x10(3)/mc L 07/19/2024 4:09 AM [facility] Neutrophil % 66.6 % 07/19/2024 4:09 AM [facility] Neutrophil Absolute (ANC) - Automated 8.29(H) 1.70 - 6.10 x10(3)/mc L 07/19/2024 4:09 AM [facility] Lymph % 22.6 % 07/19/2024 4:09 AM [facility] Lymph Absolute 2.81 0.90 - 3.20 x10(3)/mc L 07/19/2024 4:09 AM EDT [facility] Monocyte % 7.5 % 07/19/2024 4:09 AM EDT [facility] Monocyte Absolute 0.93(H) 0.30 - 0.90 x10(3)/mc L 07/19/2024 4:09 AM EDT [facility] Eos % 1.9 % 07/19/2024 4:09 AM EDT [facility] Eos Absolute 0.24 0.00 - 0.40 x10(3)/mc L 07/19/2024 4:09 AM EDT [facility] Basophil % 0.8 % 07/19/2024 4:09 AM EDT [facility] Baso Absolute 0.10 0.00 - 0.10 x10(3)/mc L 07/19/2024 4:09 AM EDT [facility] Immature Gran % 0.6 % 4:09 AM EDT [facility] Immature Gran Absolute 0.08(H) 0.00 - 0.04 x10(3)/mc L 07/19/2024 4:09 AM EDT [facility] Blood VENOUS BLOOD SPECIMEN / Unknown IP Care Team Draw / Unknown 07/19/2024 3:45 AM EDT 07/19/2024 4:00 AM EDT Thony Garcia MD HEMATOLOGY ORDERABLE S [facility] [place] [address] * Phosphorus (07/19/2024 3:45 AM EDT) Phosphorus 4.3 2.5 - 4.5 mg/dL 07/19/2024 4:40 AM EDT [facility] Blood VENOUS BLOOD SPECIMEN / Unknown IP Care Team Draw / Unknown 07/19/2024 3:45 AM EDT 07/19/2024 4:00 AM EDT Thony Garcia MD CHEMISTRY ORDERABLES Performing Organization Address City/[facility] Co de Phone Number [facility] [place] [address] * Magnesium (07/19/2024 3:45 AM EDT) Magnesium 0.89 0.69 - 1.07 mMol/L 07/19/2024 4:40 AM EDT [facility] Blood VENOUS BLOOD SPECIMEN / Unknown IP Care Team Draw / Unknown 07/19/2024 3:45 AM EDT 07/19/2024 4:00 AM EDT Thony Garcia MD CHEMISTRY ORDERABLES Performing Organization Address [facility] Co de Phone Number [facility] [place] [address] * POC, GLUCOSE (07/19/2024 12:01 AM EDT) Glucometer, POC 186 65 - 199 mg/dL 07/19/2024 12:02 AM EDT [facility] Comment:Supplemental ranges: <140 mg/dL before meals <180 mg/dL all other times of the day. Blood CAPILLARY BLOOD / Unknown 07/19/2024 12:01 AM EDT 07/19/2024 12:02 AM EDT Thony Garcia MD POINT OF CARE TEST O RDERABLES Performing Organization Address City/[facility]/ZIP Co de Phone Number [facility] [place] [address] * POC, GLUCOSE (07/18/2024 9:46 PM EDT) Glucometer, POC 185 65 - 199 mg/dL 07/18/2024 9:47 PM EDT [facility] Comment:Supplemental ranges: <140 mg/dL before meals <180 mg/dL all other times of the day. Blood CAPILLARY BLOOD / Unknown 07/18/2024 9:46 PM EDT 07/18/2024 9:47 PM EDT Thony Garcia MD POINT OF CARE TEST O GILDA Performing Organization Address City/[facility]/ZIP Co de Phone Number [facility] [place] [address] * POC, GLUCOSE (07/18/2024 3:20 PM EDT) Glucometer, POC 134 65 - 199 mg/dL 07/18/2024 3:20 PM EDT [facility] Comment:Supplemental ranges: <140 mg/dL before meals <180 mg/dL all other times of the day. Blood CAPILLARY BLOOD / Unknown 07/18/2024 3:20 PM EDT 07/18/2024 3:21 PM EDT Thony Garcia MD POINT OF CARE TEST O GILDA Performing Organization Address [facility] Co de Phone Number [facility] [place] [address] * (ABNORMAL) POC, GLUCOSE (07/18/2024 11:53 AM EDT) Glucometer, POC 244(H) 65 - 199 mg/dL 07/18/2024 11:53 AM EDT [facility] Comment:Supplemental ranges: <140 mg/dL before meals <180 mg/dL all other times of the day. Blood CAPILLARY BLOOD / Unknown 07/18/2024 11:53 AM EDT 07/18/2024 11:54 AM EDT Thony Garcia MD POINT OF CARE TEST O GILDA Performing Organization Address City/[facility]/ZIP Co de Phone Number [facility] [place] [address] * Vancomycin Level, Random (07/18/2024 8:01 AM EDT) Vancomycin, Random 17.2 mg/L 2023 9:40 AM EDT [facility] Comment:This level is for de termination of the patient's vancomycin pyge-nzbit-ilb-curve (AUC) value. Contact the inpatient pharmacy for interpretation. Blood VENOUS BLOOD SPECIMEN / Unknown IP Care Team Draw / Unknown 07/18/2024 8:01 AM EDT 07/18/2024 8:39 AM EDT Thony Garcia MD CHEMISTRY ORDERABLES Performing Organization Address [facility] Co de Phone Number [facility] [place] [address] * POC, GLUCOSE (07/18/2024 7:21 AM EDT) Glucometer, POC 177 65 - 199 mg/dL 07/18/2024 7:22 AM EDT [facility] Comment:Supplemental ranges: <140 mg/dL before meals <180 mg/dL all other times of the day. Blood CAPILLARY BLOOD / Unknown 07/18/2024 7:21 AM EDT 07/18/2024 7:22 AM EDT Thony Garcia MD POINT OF CARE TEST O RDERABLES Performing Organization Address [facility] de Phone Number [facility] [place] [address] * Heparin (unfractionated) Level (07/18/2024 3:33 AM EDT) UF Heparin 0.35 IU/mL 07/18/2024 4:42 AM EDT [facility] Comment: Heparin (anti-Xa) levels should [...] EDT Thony Garcia MD HEMATOLOGY ORDERABLE S [facility] [place] [address] * (ABNORMAL) Basic Metabolic Panel (07/18/2024 3:33 AM EDT) Glucose 170 65 - 199 mg/dL 07/18/2024 4:50 AM EDT [facility] Comment:Glucose Concentratio n >=200 mg/dL plus symptoms is consistent with Diabetes Mellitus. Blood Urea Nitrogen 8(L) 10 - 20 mg/dL 07/18/2024 4:50 AM EDT [facility] Creatinine 0.53(L) 0.80 - 1.50 mg/dL [facility]24 [facility] S[facility] 136 135 - 145 mMol/L 07/18/2024 4:[facility] Potassium 4.3 3.5 - 5.0 mMol/L 07/18/2024 4:50 [facility] Chloride 101 98 - 107 mMol/L 07/18/2024 4:50 [facility] Carbon Dioxide 23 22 - 31 mMol/L 07/18/2024 4:[facility] Anion Gap 12 5 - 15 mMol/L 07/18/2024 4:50 AM [facility] Calcium 9.2 8.5 - 10.5 mg/dL 07/18/2024 4:50 AM EDT [facility] Est Glomerular Filtration Rate - Male 122 mL/min/1. 73 m?? 07/18/2024 4:50 AM EDT [facility] Comment: This patient's estimated GFR [...] AM EDT Thony Garcia MD CHEMISTRY ORDERABLES [facility] [place] [address] * (ABNORMAL) CBC (with Diff) (07/18/2024 3:33 AM EDT) White Blood Cell 11.56(H) 4.00 - 9.50 x10(3)/mc L 07/18/2024 4:26 AM EDT [facility] Red Blood Cell 4.55(L) 4.58 - 5.54 x10(6)/mc L 07/18/2024 4:26 AM EDT [facility] Hemoglobin 13.4(L) 13.7 - 16.5 g/dL 07/18/2024 4:26 AM EDT [facility] Hematocrit 40.2(L) 40.5 - 48.5 % 07/18/2024 4:26 AM EDT [facility] Mean Cell Volume 88.4 82.9 - 93.1 fL 07/18/2024 4:26 AM [facility] Mean Cell Hemoglobin 29.5 27.5 - 32.1 pg 07/18/2024 4:26 AM [facility] Mean Cell Hemoglobin Concentration 33.3 32.0 - 35.7 g/dL 07/18/2024 4:26 AM [facility] Platelet 392(H) 145 - 357 x10(3)/mc L 07/18/2024 4:26 AM [facility] Mean Platelet Volume 10.2 7.6 - 12.9 fL 07/18/2024 4:26 AM [facility] RDW Standard Deviation 42.0 36.0 - 45.0 fL 07/18/2024 4:26 AM [facility] RDW coefficient of variation 13.1 11.4 - 13.8 % 07/18/2024 4:26 AM [facility] NRBC% auto 0.0 % 07/18/2024 4:26 AM [facility] NRBC Absolute 0.00 0.00 - 0.00 x10(3)/mc L 07/18/2024 4:26 AM [facility] Neutrophil % 68.4 % 07/18/2024 4:26 AM [facility] Neutrophil Absolute (ANC) - Automated 7.91(H) 1.70 - 6.10 x10(3)/mc L 07/18/2024 4:26 AM [facility] Lymph % 21.3 % 07/18/2024 4:26 AM [facility] Lymph Absolute 2.46 0.90 - 3.20 x10(3)/mc L 07/18/2024 4:26 AM [facility] Monocyte % 7.2 % 07/18/2024 4:26 AM [facility] Monocyte Absolute 0.83 0.30 - 0.90 x10(3)/mc L 07/18/2024 4:26 AM [facility] Eos % 1.7 % 07/18/2024 4:26 AM EDT [facility] Eos Absolute 0.20 0.00 - 0.40 x10(3)/mc L 07/18/2024 4:26 AM EDT [facility] Basophil % 0.8 % 07/18/2024 4:26 AM EDT [facility] Baso Absolute 0.09 0.00 - 0.10 x10(3)/mc L 07/18/2024 4:26 AM EDT [facility] Immature Gran % 0.6 % 4:26 AM EDT [facility] Immature Gran Absolute 0.07(H) 0.00 - 0.04 x10(3)/mc L 07/18/2024 4:26 AM EDT [facility] Blood VENOUS BLOOD SPECIMEN / Unknown IP Care Team Draw / Unknown 07/18/2024 3:33 AM EDT 07/18/2024 4:21 AM EDT Thony Garcia MD HEMATOLOGY ORDERABLE S [facility] [place] [address] * Phosphorus (07/18/2024 3:33 AM EDT) Phosphorus 3.7 2.5 - 4.5 mg/dL 07/18/2024 4:50 AM EDT [facility] Blood VENOUS BLOOD SPECIMEN / Unknown IP Care Team Draw / Unknown 07/18/2024 3:33 AM EDT 07/18/2024 4:21 AM EDT Thony Garcia MD CHEMISTRY ORDERABLES [facility] [place] [address] * Magnesium (07/18/2024 3:33 AM EDT) Magnesium 0.88 0.69 - 1.07 mMol/L 07/18/2024 4:50 AM EDT [facility] Blood VENOUS BLOOD SPECIMEN / Unknown IP Care Team Draw / Unknown 07/18/2024 3:33 AM EDT 07/18/2024 4:21 AM EDT Thony Garcia MD CHEMISTRY ORDERABLES Performing Organization Address [facility] Co de Phone Number [facility] [place] [address] * LDL Cholesterol, Direct (07/18/2024 3:33 AM EDT) LDL Cholesterol, Direct 65 mg/dL 07/18/2024 4:50 AM EDT [facility] Comment: Desirable: <100 mg/dL Above [...] Garcia MD CHEMISTRY ORDERABLES Performing Organization Address [facility] Co de Phone Number [facility] [place] [address] * HDL/Cholesterol Profile (07/18/2024 3:33 AM EDT) Cholesterol, Total 114 mg/dL 07/18/2024 4:50 AM EDT [facility] Comment: Desirable: < 200 mg/dL Borderline High: 200 - 239 mg/dL High: > or = 240 mg/dL HDL Cholesterol 38 mg/dL 4:50 AM T [facility] Comment:Males: High Risk: <4 0 mg/dL Non-HDL Cholesterol 76 mg/dL 07/18/2024 4:50 AM EDT [facility] Comment: Desirable: <130 mg/dL Above Desirable: 130-159 mg/dL Borderline High: 160-189 mg/dL High: 190-219 mg/dL Very High: > or = 220 mg/dL Blood VENOUS BLOOD SPECIMEN / Unknown IP Care Team Draw / Unknown 07/18/2024 3:33 AM EDT 07/18/2024 4:21 AM EDT [facility] - 07/18/2024 4:50 AM EDT [...] ACC/AHA Guidelines (most recently Johann et al. [facility] 08/11/22): * For individuals with atherosclerotic cardiovascular [...] Garcia MD CHEMISTRY ORDERABLES Performing Organization Address [facility] Co de Phone Number [facility] [place] [address] * (ABNORMAL) POC, GLUCOSE (07/18/2024 3:21 AM EDT) Glucometer, POC 200(H) 65 - 199 mg/dL 07/18/2024 3:22 AM EDT [facility] Comment:Supplemental ranges: <140 mg/dL before meals <180 mg/dL all other times of the day. Blood CAPILLARY BLOOD / Unknown 07/18/2024 3:21 AM EDT 07/18/2024 3:22 AM EDT Thony Garcia MD POINT OF CARE TEST O RDERABLES Performing Organization Address [facility]/ZIP Co de Phone Number [facility] [place] [address] * (ABNORMAL) POC, GLUCOSE (07/18/2024 12:44 AM EDT) Glucometer, POC 216(H) 65 - 199 mg/dL 07/18/2024 12:44 AM EDT [facility] Comment:Supplemental ranges: <140 mg/dL before meals <180 mg/dL all other times of the day. Blood CAPILLARY BLOOD / Unknown 07/18/2024 12:44 AM EDT 07/18/2024 12:44 AM EDT Thony Garcia MD POINT OF CARE TEST O GILDA Performing Organization Address [facility] Co de Phone Number [facility] [place] [address] * (ABNORMAL) POC, GLUCOSE (07/17/2024 9:02 PM EDT) Glucometer, POC 294(H) 65 - 199 mg/dL 07/17/2024 9:02 PM EDT [facility] Comment:Supplemental ranges: <140 mg/dL before meals <180 mg/dL all other times of the day. Blood CAPILLARY BLOOD / Unknown 07/17/2024 9:02 PM EDT 07/17/2024 9:03 PM EDT Thony Garcia MD POINT OF CARE TEST O GILDA Performing Organization Address [facility] Co de Phone Number [facility] [place] [address] * (ABNORMAL) POC, GLUCOSE (07/17/2024 4:07 PM EDT) Glucometer, POC 219(H) 65 - 199 mg/dL 07/17/2024 4:07 PM EDT [facility] Comment:Supplemental ranges: <140 mg/dL before meals <180 mg/dL all other times of the day. Blood CAPILLARY BLOOD / Unknown 07/17/2024 4:07 PM EDT 07/17/2024 4:07 PM EDT Thony Garcia MD POINT OF CARE TEST O RDTYESHA Performing Organization Address City/[facility] Co de Phone Number [facility] [place] [address] * (ABNORMAL) POC, GLUCOSE (07/17/2024 11:31 AM EDT) Glucometer, POC 255(H) 65 - 199 mg/dL 07/17/2024 11:32 AM EDT [facility] Comment:Supplemental ranges: <140 mg/dL before meals <180 mg/dL all other times of the day. Blood CAPILLARY BLOOD / Unknown 07/17/2024 11:31 AM EDT 07/17/2024 11:32 AM EDT Thony Garcia MD POINT OF CARE TEST O DIMITRIERAHERNANDEZ Performing Organization Address [facility] Co de Phone Number [facility] [place] [address] * POC, GLUCOSE (07/17/2024 7:38 AM EDT) Glucometer, POC 112 65 - 199 mg/dL 07/17/2024 7:38 AM EDT [facility] Comment:Supplemental ranges: <140 mg/dL before meals <180 mg/dL all other times of the day. Blood CAPILLARY BLOOD / Unknown 07/17/2024 7:38 AM EDT 07/17/2024 7:38 AM EDT Thony Garcia MD POINT OF CARE TEST O GILDA Performing Organization Address City/[facility]/ZIP Co de Phone Number [facility] [place] [address] * ELEN, legs, multiple levels (07/17/2024 6:31 AM EDT) VB Text Report Department: Vascular Surgery Lab Patient: [id number] (GEOVANNA DIXON) CPT: 95419 Referring Physician: VIBHA TIERNEY ?? Indications: PAD [...] ? Dorsalis Pedis (Ankle) Artery ?83 ?0.55 ??[place]-Biphasic ? Posterior Tibial (Ankle) Artery ??87 ?0.57 [...] - 199 mg/dL 07/17/2024 4:12 AM EDT [facility] Comment:Supplemental ranges: <140 mg/dL before meals <180 mg/dL all other times of the day. Blood CAPILLARY BLOOD / Unknown 07/17/2024 4:12 AM EDT 07/17/2024 4:12 AM EDT Thony Garcia MD POINT OF CARE TEST O RDERABLES Performing Organization Address [facility] Co de Phone Number [facility] [place] [address] * Heparin (unfractionated) Level (07/17/2024 3:42 AM EDT) UF Heparin 0.42 IU/mL 07/17/2024 4:38 AM EDT [facility] Comment: Heparin (anti-Xa) levels should [...] HEMATOLOGY ORDERABLE S Performing Organization Address City/[facility]/ZIP Co de Phone Number [facility] [place] [address] * Phosphorus (07/17/2024 3:42 AM EDT) Phosphorus 3.6 2.5 - 4.5 mg/dL 07/17/2024 4:47 AM EDT [facility] Blood VENOUS BLOOD SPECIMEN / Unknown IP Care Team Draw / Unknown 07/17/2024 3:42 AM EDT 07/17/2024 4:15 AM EDT Thony Garcia MD CHEMISTRY ORDERABLES Performing Organization Address City/[facility]/ZIP Co de Phone Number [facility] [place] [address] * Magnesium (07/17/2024 3:42 AM EDT) Magnesium 0.78 0.69 - 1.07 mMol/L 07/17/2024 4:47 AM EDT [facility] Blood VENOUS BLOOD SPECIMEN / Unknown IP Care Team Draw / Unknown 07/17/2024 3:42 AM EDT 07/17/2024 4:15 AM EDT Thony Garcia MD CHEMISTRY ORDERABLES Performing Organization Address [facility] Co de Phone Number [facility] [place] [address] * (ABNORMAL) Basic Metabolic Panel (07/17/2024 3:42 AM EDT) Glucose 225(H) 65 - 199 mg/dL 07/17/2024 4:47 AM EDT [facility] Comment:Glucose Concentratio n >=200 mg/dL plus symptoms is consistent with Diabetes Mellitus. Blood Urea Nitrogen 9(L) 10 - 20 mg/dL 07/17/2024 4:47 AM EDT [facility] Creatinine 0.49(L) 0.80 - 1.50 mg/dL 07/17/2024 4:47 AM EDT [facility] Sodium 135 135 - 145 mMol/L 07/17/2024 4:47 AM EDT [facility] Potassium 3.7 3.5 - 5.0 mMol/L 07/17/2024 4:47 AM EDT [facility] Chloride 103 98 - 107 mMol/L 07/17/2024 4:47 AM EDT [facility] Carbon Dioxide 21(L) 22 - 31 mMol/L 07/17/2024 4:47 AM EDT [facility] Anion Gap 11 5 - 15 mMol/L 07/17/2024 4:47 AM EDT [facility] Calcium 9.1 8.5 - 10.5 mg/dL 07/17/2024 4:47 AM EDT [facility] Est Glomerular Filtration Rate - Male 125 mL/min/1. 73 m?? 07/17/2024 4:47 AM EDT [facility] Comment: This patient's estimated GFR [...] AM EDT Thony Garcia MD CHEMISTRY ORDERABLES [facility] [place] [address] * (ABNORMAL) CBC (with Diff) (07/17/2024 3:42 AM EDT) White Blood Cell 11.02(H) 4.00 - 9.50 x10(3)/mc L 07/17/2024 4:21 AM EDT [facility] Red Blood Cell 4.43(L) 4.58 - 5.54 x10(6)/mc L 07/17/2024 4:21 AM EDT [facility] Hemoglobin 13.1(L) 13.7 - 16.5 g/dL 07/17/2024 4:21 AM EDT [facility] Hematocrit 38.8(L) 40.5 - 48.5 % 07/17/2024 4:21 AM [facility] Mean Cell Volume 87.6 82.9 - 93.1 fL 07/17/2024 4:21 AM [facility] Mean Cell Hemoglobin 29.6 27.5 - 32.1 pg 07/17/2024 4:21 AM [facility] Mean Cell Hemoglobin Concentration 33.8 32.0 - 35.7 g/dL 07/17/2024 4:21 AM [facility] Platelet 367(H) 145 - 357 x10(3)/mc L 07/17/2024 4:21 AM [facility] Mean Platelet Volume 9.7 7.6 - 12.9 fL 07/17/2024 4:21 AM [facility] RDW Standard Deviation 41.5 36.0 - 45.0 fL 07/17/2024 4:21 AM [facility] RDW coefficient of variation 13.0 11.4 - 13.8 % 07/17/2024 4:21 AM [facility] NRBC% auto 0.0 % 07/17/2024 4:21 AM [facility] NRBC Absolute 0.00 0.00 - 0.00 x10(3)/mc L 07/17/2024 4:21 AM [facility] Neutrophil % 70.4 % 07/17/2024 4:21 AM [facility] Neutrophil Absolute (ANC) - Automated 7.76(H) 1.70 - 6.10 x10(3)/mc L 07/17/2024 4:21 AM [facility] Lymph % 20.9 % 07/17/2024 4:21 AM [facility] Lymph Absolute 2.30 0.90 - 3.20 x10(3)/mc L 07/17/2024 4:21 AM [facility] Monocyte % 6.0 % 07/17/2024 4:21 AM EDT [facility] Monocyte Absolute 0.66 0.30 - 0.90 x10(3)/mc L 07/17/2024 4:21 AM EDT [facility] Eos % 1.6 % 07/17/2024 4:21 AM EDT [facility] Eos Absolute 0.18 0.00 - 0.40 x10(3)/mc L 07/17/2024 4:21 AM EDT [facility] Basophil % 0.5 % 07/17/2024 4:21 AM EDT [facility] Baso Absolute 0.05 0.00 - 0.10 x10(3)/mc L 07/17/2024 4:21 AM EDT [facility] Immature Gran % 0.6 % 4:21 AM EDT [facility] Immature Gran Absolute 0.07(H) 0.00 - 0.04 x10(3)/mc L 07/17/2024 4:21 AM EDT [facility] Blood VENOUS BLOOD SPECIMEN / Unknown IP Care Team Draw / Unknown 07/17/2024 3:42 AM EDT 07/17/2024 4:15 AM EDT Thony Garcia MD HEMATOLOGY ORDERABLE S [facility] [address] * (ABNORMAL) POC, GLUCOSE (07/17/2024 2:25 AM EDT) [facility] Signature Glucometer, POC 262(H) 65 - 199 mg/dL 07/17/2024 2:25 AM EDT [facility] Comment:Supplemental ranges: <140 mg/dL before meals <180 mg/dL all other times of the day. Blood CAPILLARY BLOOD / Unknown 07/17/2024 2:25 AM EDT 07/17/2024 2:25 AM EDT Thony Garcia MD POINT OF CARE TEST O RDERABLES [facility] [place] [address] * (ABNORMAL) POC, GLUCOSE (07/17/2024 12:19 AM EDT) Glucometer, POC 262(H) 65 - 199 mg/dL 07/17/2024 12:19 AM EDT [facility] Comment:Supplemental ranges: <140 mg/dL before meals <180 mg/dL all other times of the day. Blood CAPILLARY BLOOD / Unknown 07/17/2024 12:19 AM EDT 07/17/2024 12:20 AM EDT Thony Garcia MD POINT OF CARE TEST O RDERABLES Performing Organization Address City/[facility]/ZIP Co de Phone Number [facility] [place] [address] * (ABNORMAL) POC, GLUCOSE (07/16/2024 8:22 PM EDT) Glucometer, POC 217(H) 65 - 199 mg/dL 07/16/2024 8:23 PM EDT [facility] Comment:Supplemental ranges: <140 mg/dL before meals <180 mg/dL all other times of the day. Blood CAPILLARY BLOOD / Unknown 07/16/2024 8:22 PM EDT 07/16/2024 8:23 PM EDT Thony Garcia MD POINT OF CARE TEST O RDERABLES [facility] [place] [address] * POC, GLUCOSE (07/16/2024 3:47 PM EDT) Glucometer, POC 184 65 - 199 mg/dL 07/16/2024 3:47 PM EDT [facility] Comment:Supplemental ranges: <140 mg/dL before meals <180 mg/dL all other times of the day. Blood CAPILLARY BLOOD / Unknown 07/16/2024 3:47 PM EDT 07/16/2024 3:48 PM EDT Thony Garcia MD POINT OF CARE TEST O RDERABLES Performing Organization Address [facility]/ZIP Co de Phone Number [facility] [place] [address] * Heparin (unfractionated) Level (07/16/2024 3:39 PM EDT) UF Heparin 0.47 IU/mL 07/16/2024 4:24 PM EDT [facility] Comment: Heparin (anti-Xa) levels should [...] HEMATOLOGY ORDERABLE S Performing Organization Address City/[facility]/ZIP Co de Phone Number [facility] [place] [address] * Potassium (07/16/2024 3:39 PM EDT) Potassium 3.9 3.5 - 5.0 mMol/L 07/16/2024 4:15 PM EDT [facility] Blood VENOUS BLOOD SPECIMEN / Unknown IP Care Team Draw / Unknown 07/16/2024 3:39 PM EDT 07/16/2024 3:47 PM EDT Hermila White RESHMA CHEMISTRY ORDERABL ES Performing Organization Address [facility]/ZIP Co de Phone Number [facility] [place] [address] * MRSA PCR Screen (07/16/2024 2:07 PM EDT) [facility] MRSA PCR Not Detected 07/17/2024 6:04 PM EDT [facility] Swab BOTH ANTERIOR NARES / Unknown Non Blood Collection / Unknown 07/16/2024 2:07 PM EDT 07/16/2024 2:13 PM EDT Narrative [facility] - 07/17/2024 6:04 PM EDT This test was performed using the Xpert MRSA NxG test kit and is run on the [employer] GeneXpert Dx System. This test is cleared by the U.S. Food and Drug Administration for clinical use and its performance characteristics have been verified by the [facility] at [facility]. This test was performed using the Xpert MRSA NxG test kit and is run on the [employer] GeneXpert Dx System. This test is cleared by the U.S. Food and Drug Administration for clinical use and its performance characteristics have been verified by the [facility] at [facility]. Hermila White RESHMA MOLECULAR ORDERABL ES Performing Organization Address City/[facility]/ZIP Co de Phone Number [facility] [place] [address] * POC, GLUCOSE (07/16/2024 1:33 PM EDT) [facility] Glucometer, POC 183 65 - 199 mg/dL 07/16/2024 1:33 PM EDT [facility] Comment:Supplemental ranges: <140 mg/dL before meals <180 mg/dL all other times of the day. Blood CAPILLARY BLOOD / Unknown 07/16/2024 1:33 PM EDT 07/16/2024 1:33 PM EDT Thony Garcia MD POINT OF CARE TEST Stephanie VO Performing Organization Address [facility] Co de Phone Number [facility] [place] [address] * (ABNORMAL) POC, GLUCOSE (07/16/2024 11:41 AM EDT) Pathologist [facility] Glucometer, POC 259(H) 65 - 199 mg/dL 07/16/2024 11:41 AM EDT [facility] Comment:Supplemental ranges: <140 mg/dL before meals <180 mg/dL all other times of the day. Blood CAPILLARY BLOOD / Unknown 07/16/2024 11:41 AM EDT 07/16/2024 11:41 AM EDT Thony Garcia MD POINT OF CARE TEST Stephanie VO Performing Organization Address [facility] Co de Phone Number [facility] [place] [address] * Heparin (unfractionated) Level (07/16/2024 9:41 AM EDT) [facility] UF Heparin 0.60 IU/mL 07/16/2024 9:54 AM EDT [facility] Comment: Heparin (anti-Xa) levels should [...] MD HEMATOLOGY ORDERABLE S Performing Organization Address [facility] Co de Phone Number [facility] [place] [address] * (ABNORMAL) POC, GLUCOSE (07/16/2024 7:10 AM EDT) Glucometer, POC 205(H) 65 - 199 mg/dL 07/16/2024 7:11 AM EDT [facility] Comment:Supplemental ranges: <140 mg/dL before meals <180 mg/dL all other times of the day. Blood CAPILLARY BLOOD / Unknown 07/16/2024 7:10 AM EDT 07/16/2024 7:11 AM EDT Thony Garcia MD POINT OF CARE TEST O RDERABLES Performing Organization Address [facility] Co de Phone Number [facility] [place] [address] * (ABNORMAL) Potassium (07/16/2024 4:15 AM EDT) Potassium 3.2(L) 3.5 - 5.0 mMol/L 07/16/2024 4:53 AM EDT [facility] Blood VENOUS BLOOD SPECIMEN / Unknown IP Care Team Draw / Unknown 07/16/2024 4:15 AM EDT 07/16/2024 4:23 AM EDT Thony Garcia MD CHEMISTRY ORDERABLES Performing Organization Address City/[facility]/ZIP Co de Phone Number [facility] [place] [address] * Phosphorus (07/16/2024 4:15 AM EDT) Phosphorus 3.7 2.5 - 4.5 mg/dL 07/16/2024 4:53 AM EDT [facility] Blood VENOUS BLOOD SPECIMEN / Unknown IP Care Team Draw / Unknown 07/16/2024 4:15 AM EDT 07/16/2024 4:23 AM EDT Thony Garcia MD CHEMISTRY ORDERABLES Performing Organization Address [facility] Co de Phone Number [facility] [place] [address] * POC, GLUCOSE (07/16/2024 4:14 AM EDT) Glucometer, POC 187 65 - 199 mg/dL 07/16/2024 4:17 AM EDT [facility] Comment:Supplemental ranges: <140 mg/dL before meals <180 mg/dL all other times of the day. Blood CAPILLARY BLOOD / Unknown 07/16/2024 4:14 AM EDT 07/16/2024 4:17 AM EDT Thony Garcia MD POINT OF CARE TEST O RDERABLES Performing Organization Address [facility] Co de Phone Number [facility] [place] [address] * (ABNORMAL) POC, GLUCOSE (07/16/2024 2:07 AM EDT) Glucometer, POC 254(H) 65 - 199 mg/dL 07/16/2024 2:08 AM EDT [facility] Comment:Supplemental ranges: <140 mg/dL before meals <180 mg/dL all other times of the day. Blood CAPILLARY BLOOD / Unknown 07/16/2024 2:07 AM EDT 07/16/2024 2:08 AM EDT Thony Garcia MD POINT OF CARE TEST O RDERABLES Performing Organization Address City/[facility] Co de Phone Number [facility] [place] [address] * Heparin (unfractionated) Level (07/16/2024 2:07 AM EDT) UF Heparin 0.72 IU/mL 07/16/2024 2:36 AM EDT [facility] Comment: Heparin (anti-Xa) levels should [...] HEMATOLOGY ORDERABLE S Performing Organization Address City/[facility] Co de Phone Number [facility] [place] [address] * Magnesium (07/16/2024 2:07 AM EDT) Magnesium 0.83 0.69 - 1.07 mMol/L 07/16/2024 2:47 AM EDT [facility] Blood VENOUS BLOOD SPECIMEN / Unknown IP Care Team Draw / Unknown 07/16/2024 2:07 AM EDT 07/16/2024 2:14 AM EDT Thony Garcia MD CHEMISTRY ORDERABLES Performing Organization Address City/[facility]/ZIP Co de Phone Number [facility] [place] [address] * (ABNORMAL) Basic Metabolic Panel (07/16/2024 2:07 AM EDT) Glucose 248(H) 65 - 199 mg/dL 07/16/2024 2:57 AM [facility] Comment:Glucose Concentratio n >=200 mg/dL plus symptoms is consistent with Diabetes Mellitus. Blood Urea Nitrogen 8(L) 10 - 20 mg/dL 07/16/2024 2:57 AM [facility] Creatinine 0.42(L) 0.80 - 1.50 mg/dL 07/16/2024 2:57 AM [facility] Sodium 135 135 - 145 mMol/L 07/16/2024 2:57 AM [facility] Potassium 07/16/2024 2:57 AM [facility] Comment:Unable to report due to hemolysis Chloride 101 98 - 107 mMol/L 07/16/2024 2:57 AM [facility] Carbon Dioxide 22 22 - 31 mMol/L 07/16/2024 2:57 AM [facility] Anion Gap 12 5 - 15 mMol/L 07/16/2024 2:57 AM [facility] Calcium 9.0 8.5 - 10.5 mg/dL 07/16/2024 2:57 AM [facility] Est Glomerular Filtration Rate - Male 131 mL/min/1. 73 m?? 07/16/2024 2:57 AM [facility] Comment: This patient's estimated [...] AM EDT Thony Garcia MD CHEMISTRY ORDERABLES [facility] [place] [address] * (ABNORMAL) CBC (with Diff) (07/16/2024 2:07 AM EDT) White Blood Cell 11.08(H) 4.00 - 9.50 x10(3)/mc L 07/16/2024 2:23 AM EDT [facility] Red Blood Cell 4.29(L) 4.58 - 5.54 x10(6)/mc L 07/16/2024 2:23 AM EDT [facility] Hemoglobin 12.7(L) 13.7 - 16.5 g/dL 07/16/2024 2:23 AM EDT [facility] Hematocrit 36.6(L) 40.5 - 48.5 % 07/16/2024 2:23 AM EDT [facility] Mean Cell Volume 85.3 82.9 - 93.1 fL 07/16/2024 2:23 AM EDT [facility] Mean Cell Hemoglobin 29.6 27.5 - 32.1 pg 07/16/2024 2:23 AM EDT [facility] Mean Cell Hemoglobin Concentration 34.7 32.0 - 35.7 g/dL 07/16/2024 2:23 AM EDT [facility] Platelet 363(H) 145 - 357 x10(3)/mc L 07/16/2024 2:23 AM EDT [facility] Mean Platelet Volume 10.3 7.6 - 12.9 fL 07/16/2024 2:23 AM EDT [facility] RDW Standard Deviation 39.2 36.0 - 45.0 fL 07/16/2024 2:23 AM EDT [facility] RDW coefficient of variation 12.7 11.4 - 13.8 % 07/16/2024 2:23 AM [facility] NRBC% auto 0.0 % 07/16/2024 2:23 AM [facility] NRBC Absolute 0.00 0.00 - 0.00 x10(3)/mc L 07/16/2024 2:23 AM [facility] Neutrophil % 66.2 % 07/16/2024 2:23 AM [facility] Neutrophil Absolute (ANC) - Automated 7.33(H) 1.70 - 6.10 x10(3)/mc L 07/16/2024 2:23 AM [facility] Lymph % 24.2 % 07/16/2024 2:23 AM [facility] Lymph Absolute 2.68 0.90 - 3.20 x10(3)/mc L 07/16/2024 2:23 AM [facility] Monocyte % 6.9 % 07/16/2024 2:23 AM [facility] Monocyte Absolute 0.77 0.30 - 0.90 x10(3)/mc L 07/16/2024 2:23 AM [facility] Eos % 1.6 % 07/16/2024 2:23 AM [facility] Eos Absolute 0.18 0.00 - 0.40 x10(3)/mc L 07/16/2024 2:23 AM [facility] Basophil % 0.6 % 07/16/2024 2:23 AM [facility] Baso Absolute 0.07 0.00 - 0.10 x10(3)/mc L 07/16/2024 2:23 AM [facility] Immature Gran % 0.5 % 2:23 AM [facility] Immature Gran Absolute 0.05(H) 0.00 - 0.04 x10(3)/mc L 07/16/2024 2:23 AM [facility] Blood VENOUS BLOOD SPECIMEN / Unknown IP Care Team Draw / Unknown 07/16/2024 2:07 AM EDT 07/16/2024 2:14 AM EDT Thony Garcia MD HEMATOLOGY ORDERABLE S Performing Organization Address [facility] Co de Phone Number [facility] [place] [address] * (ABNORMAL) POC, GLUCOSE (07/16/2024 12:04 AM EDT) Glucometer, POC 324(H) 65 - 199 mg/dL 07/16/2024 12:05 AM EDT [facility] Comment:Supplemental ranges: <140 mg/dL before meals <180 mg/dL all other times of the day. Blood CAPILLARY BLOOD / Unknown 07/16/2024 12:04 AM EDT 07/16/2024 12:05 AM EDT Thony Garcia MD POINT OF CARE TEST O RDERABLES Performing Organization Address [facility] Co de Phone Number [facility] [place] [address] * (ABNORMAL) POC, GLUCOSE (07/15/2024 8:36 PM EDT) Glucometer, POC 274(H) 65 - 199 mg/dL 07/15/2024 8:36 PM EDT [facility] Comment:Supplemental ranges: <140 mg/dL before meals <180 mg/dL all other times of the day. Blood CAPILLARY BLOOD / Unknown 07/15/2024 8:36 PM EDT 07/15/2024 8:36 PM EDT Thony Garcia MD POINT OF CARE TEST O RDERABLES Performing Organization Address City/[facility]/ZIP Co de Phone Number [facility] [place] [address] * Heparin (unfractionated) Level (07/15/2024 8:21 PM EDT) UF Heparin 0.55 IU/mL 07/15/2024 8:42 PM EDT [facility] Comment: Heparin (anti-Xa) levels should [...] MD HEMATOLOGY ORDERABLE S Performing Organization Address [facility] Co de Phone Number [facility] [place] [address] * (ABNORMAL) POC, GLUCOSE (07/15/2024 4:41 PM EDT) [facility] Glucometer, POC 275(H) 65 - 199 mg/dL 07/15/2024 4:42 PM EDT [facility] Comment:Supplemental ranges: <140 mg/dL before meals <180 mg/dL all other times of the day. Blood CAPILLARY BLOOD / Unknown 07/15/2024 4:41 PM EDT 07/15/2024 4:42 PM EDT Thony Garcia MD POINT OF CARE TEST O RDERABLES Performing Organization Address City/[facility]/ZIP Co de Phone Number [facility] [place] [address] * (ABNORMAL) Vancomycin, trough (07/15/2024 2:19 PM EDT) Vancomycin, Trough 9.7(L) 10.0 - 20.0 mg/L 07/15/2024 3:28 PM EDT [facility] Comment: Varies according to infection source. Blood VENOUS BLOOD SPECIMEN / Unknown IP Care Team Draw / Unknown 07/15/2024 2:19 PM EDT 07/15/2024 3:00 PM EDT Thony Garcia MD CHEMISTRY ORDERABLES Performing Organization Address City/[facility]/ZIP Co de Phone Number [facility] [place] [address] * (ABNORMAL) POC, GLUCOSE (07/15/2024 1:16 PM EDT) Glucometer, POC 223(H) 65 - 199 mg/dL 07/15/2024 1:17 PM EDT [facility] Comment:Supplemental ranges: <140 mg/dL before meals <180 mg/dL all other times of the day. Blood CAPILLARY BLOOD / Unknown 07/15/2024 1:16 PM EDT 07/15/2024 1:18 PM EDT Thony Garcia MD POINT OF CARE TEST O RDERABLES [facility] [place] [place] [address] * POC, GLUCOSE (07/15/2024 8:34 AM EDT) Glucometer, POC 133 65 - 199 mg/dL 07/15/2024 8:35 AM EDT [facility] Comment:Supplemental ranges: <140 mg/dL before meals <180 mg/dL all other times of the day. Blood CAPILLARY BLOOD / Unknown 07/15/2024 8:34 AM EDT 07/15/2024 8:35 AM EDT Thony Garcia MD POINT OF CARE TEST O RDERABLES [facility] [place] [place] [address] * (ABNORMAL) POC, GLUCOSE (07/15/2024 4:44 AM EDT) Glucometer, POC 224(H) 65 - 199 mg/dL 07/15/2024 4:44 AM EDT [facility] Comment:Supplemental ranges: <140 mg/dL before meals <180 mg/dL all other times of the day. Blood CAPILLARY BLOOD / Unknown 07/15/2024 4:44 AM EDT 07/15/2024 4:44 AM EDT Thony Garcia MD POINT OF CARE TEST O RDERABLES Performing Organization Address City/[facility]/ZIP Co de Phone Number [facility] [place] [address] * (ABNORMAL) POC, GLUCOSE (07/15/2024 2:48 AM EDT) Glucometer, POC 281(H) 65 - 199 mg/dL 07/15/2024 2:48 AM EDT [facility] Comment:Supplemental ranges: <140 mg/dL before meals <180 mg/dL all other times of the day. Blood CAPILLARY BLOOD / Unknown 07/15/2024 2:48 AM EDT 07/15/2024 2:48 AM EDT Thony Garcia MD POINT OF CARE TEST O RDERAHERNANDEZ [facility] [place] [address] * (ABNORMAL) Basic Metabolic Panel (07/15/2024 12:45 AM EDT) Glucose 309(H) 65 - 199 mg/dL 07/15/2024 1:28 AM EDT [facility] Comment:Glucose Concentratio n >=200 mg/dL plus symptoms is consistent with Diabetes Mellitus. Blood Urea Nitrogen 8(L) 10 - 20 mg/dL 07/15/2024 1:28 AM [facility] Creatinine 0.80 0.80 - 1.50 mg/dL 07/15/2024 1:28 AM [facility] Sodium 132(L) 135 - 145 mMol/L 07/15/2024 1:28 AM [facility] Potassium 3.7 3.5 - 5.0 mMol/L 07/15/2024 1:28 AM [facility] Chloride 99 98 - 107 mMol/L 07/15/2024 1:28 AM [facility] Carbon Dioxide 20(L) 22 - 31 mMol/L 07/15/2024 1:28 AM [facility] Anion Gap 13 5 - 15 mMol/L 07/15/2024 1:28 AM [facility] Calcium 8.5 8.5 - 10.5 mg/dL 07/15/2024 1:28 AM [facility] Est Glomerular Filtration Rate - Male 108 mL/min/1. 73 m?? 07/15/2024 1:28 AM [facility] Comment: This patient's estimated [...] AM EDT Thony Garcia MD CHEMISTRY ORDERABLES [facility] [place] [address] * (ABNORMAL) CBC (with Diff) (07/15/2024 12:45 AM EDT) White Blood Cell 11.70(H) 4.00 - 9.50 x10(3)/mc L 07/15/2024 1:05 AM EDT [facility] Red Blood Cell 4.13(L) 4.58 - 5.54 x10(6)/mc L 07/15/2024 1:05 AM EDT [facility] Hemoglobin 12.1(L) 13.7 - 16.5 g/dL 07/15/2024 [facility] Hematocrit 35.7(L) 40.5 - 48.5 % 07/15/2024 1:05 AM EDT [facility] Mean Cell Volume 86.4 82.9 - 93.1 fL 07/15/2024 1:05 AM EDT [facility] Mean Cell Hemoglobin 29.3 27.5 - 32.1 pg 07/15/2024 1:05 AM EDT [facility] Mean Cell Hemoglobin Concentration 33.9 32.0 - 35.7 g/dL 07/15/2024 1:05 AM EDT [facility] Platelet 322 145 - 357 x10(3)/mc L 07/15/2024 1:05 AM EDT [facility] Mean Platelet Volume 9.9 7.6 - 12.9 fL 07/15/2024 1:05 [facility] RDW Standard Deviation 40.2 36.0 - 45.0 fL 07/15/2024 1:05 [facility] RDW coefficient of variation 12.9 11.4 - 13.8 % 07/15/2024 1:05 AM [facility] NRBC% auto 0.0 % 07/15/2024 1:05 AM [facility] NRBC Absolute 0.00 0.00 - 0.00 x10(3)/mc L 07/15/2024 1:05 AM EDT [facility] Neutrophil % 74.9 % 07/15/2024 1:05 AM [facility] Neutrophil Absolute (ANC) - Automated 8.75(H) 1.70 - 6.10 x10(3)/mc L 07/15/2024 1:05 AM EDT [facility] Lymph % 16.3 % 07/15/2024 1:05 AM EDT [facility] Lymph Absolute 1.91 0.90 - 3.20 x10(3)/mc L 07/15/2024 1:05 AM T [facility] Monocyte % 6.6 % 07/15/2024 1:05 [facility] Monocyte Absolute 0.77 0.30 - 0.90 x10(3)/mc L 07/15/2024 1:05 AM EDT [facility] Eos % 1.5 % 07/15/2024 1:05 [facility] Eos Absolute 0.18 0.00 - 0.40 x10(3)/mc L 07/15/2024 1:05 AM T [facility] Basophil % 0.3 % 07/15/2024 1:05 AM T [facility] Baso Absolute 0.04 0.00 - 0.10 x10(3)/mc L 07/15/2024 1:05 AM EDT [facility] Immature Gran % 0.4 % 1:05 AM [facility] Immature Gran Absolute 0.05(H) 0.00 - 0.04 x10(3)/mc L 07/15/2024 1:05 AM [facility] Blood VENOUS BLOOD SPECIMEN / Unknown IP Care Team Draw / Unknown 07/15/2024 12:45 AM EDT 07/15/2024 1:00 AM EDT Thony Garcia MD HEMATOLOGY ORDERABLE S Performing Organization Address City/[facility]/ZIP Co de Phone Number [facility] [place] [address] * (ABNORMAL) POC, GLUCOSE (07/15/2024 12:29 AM EDT) Glucometer, POC 394(H) 65 - 199 mg/dL 07/15/2024 12:30 AM EDT [facility] Comment:Supplemental ranges: <140 mg/dL before meals <180 mg/dL all other times of the day. Blood CAPILLARY BLOOD / Unknown 07/15/2024 12:29 AM EDT 07/15/2024 12:30 AM EDT Thony Garcia MD POINT OF CARE TEST O RDERABLES Performing Organization Address [facility]/ZIP Co de Phone Number [facility] [place] [address] * CT Angiogram Aortic Lower Extremity Runoff (07/14/2024 11:57 PM EDT) WORKSTATION ID [id number] DH RAD Anatomical Region Laterality Modality Abdomen [...] have questions please contact the health hospice care consultant that requested your imaging first. ? Narrative [...] 2.6 cm vessel length at and just [id number], similar to prior. Anterior tibial artery: No [...] the intravenous administration of contrast. 149 cc [id number]. Maximum intensity projection (MIP) were reformatted. 3-D [...] 2.6 cm vessel length at and just [id number], similar toprior. Anterior tibial artery: No stenosis. [...] who have questions please contactthe health hospice care consultant that requested your imaging first. Thony Garcia MD IMG CT ORDERABLES * XR Foot Min 3 views Left (Generic) (07/14/2024 9:11 PM EDT) WORKSTATION ID [id number] RAD Anatomical Region Laterality Modality Foot Left [...] have questions please contact the health hospice care consultant that requested your imaging first. ? Narrative [...] who have questions please contactthe health hospice care consultant that requested your imaging first. Arthur Patel DO IMG DX ORDERABLES * Lactate Whole Blood POC (07/14/2024 7:41 PM EDT) Lactate, Whole Blood 1.1 0.5 - 2.2 mmol/L 07/14/2024 7:42 PM EDT [facility] Blood ARTERIAL BLOOD / Unknown 07/14/2024 7:41 PM EDT 07/14/2024 7:42 PM EDT Unknown POINT OF CARE TEST O RDERABLES [facility] [address] [place] [address] * (ABNORMAL) Basic Metabolic Panel (07/14/2024 7:39 PM EDT) Glucose 341(H) 65 - 199 mg/dL 07/14/2024 8:13 PM EDT [facility] Comment:Glucose Concentratio n >=200 mg/dL plus symptoms is consistent with Diabetes Mellitus. Blood Urea Nitrogen 6(L) 10 - 20 mg/dL 07/14/2024 8:13 PM EDT [facility] Creatinine 0.53(L) 0.80 - 1.50 mg/dL 07/14/2024 8:13 PM EDT [facility] Sodium 137 135 - 145 mMol/L 07/14/2024 8:13 PM EDT [facility] Potassium 3.7 3.5 - 5.0 mMol/L 07/14/2024 8:13 PM EDT [facility] Chloride 101 98 - 107 mMol/L 07/14/2024 8:13 PM EDT [facility] Carbon Dioxide 23 22 - 31 mMol/L 07/14/2024 8:13 PM EDT [facility] Anion Gap 13 5 - 15 mMol/L 07/14/2024 8:13 PM EDT [facility] Calcium 8.6 8.5 - 10.5 mg/dL 07/14/2024 8:13 PM EDT [facility] Est Glomerular Filtration Rate - Male 122 mL/min/1. 73 m?? 07/14/2024 8:13 PM EDT [facility] Comment: This patient's estimated GFR [...] Patel DO CHEMISTRY ORDERABLES Performing Organization Address City/State/[facility] Co de Phone Number [facility] [place] [address] * (ABNORMAL) CBC (with Diff) (07/14/2024 7:39 PM EDT) White Blood Cell 8.69 4.00 - 9.50 x10(3)/mc L 07/14/2024 7:50 PM EDT [facility] Red Blood Cell 4.01(L) 4.58 - 5.54 x10(6)/mc L 07/14/2024 7:50 PM EDT [facility] Hemoglobin 11.7(L) 13.7 - 16.5 g/dL 07/14/2024 7:50 PM EDT [facility] Hematocrit 34.5(L) 40.5 - 48.5 % 07/14/2024 7:50 PM EDT [facility] Mean Cell Volume 86.0 82.9 - 93.1 fL 07/14/2024 7:50 PM EDT [facility] Mean Cell Hemoglobin 29.2 27.5 - 32.1 pg 07/14/2024 7:50 PM [facility] Mean Cell Hemoglobin Concentration 33.9 32.0 - 35.7 g/dL 07/14/2024 7:50 PM [facility] Platelet 313 145 - 357 x10(3)/mc L 07/14/2024 7:50 PM [facility] Mean Platelet Volume 9.5 7.6 - 12.9 fL 07/14/2024 7:50 PM [facility] RDW Standard Deviation 39.5 36.0 - 45.0 fL 07/14/2024 7:50 PM [facility] RDW coefficient of variation 12.6 11.4 - 13.8 % 07/14/2024 7:50 PM [facility] NRBC% auto 0.0 % 07/14/2024 7:50 PM [facility] NRBC Absolute 0.00 0.00 - 0.00 x10(3)/mc L 07/14/2024 7:50 PM [facility] Neutrophil % 67.3 % 07/14/2024 7:50 PM [facility] Neutrophil Absolute (ANC) - Automated 5.85 1.70 - 6.10 x10(3)/mc L 07/14/2024 7:50 PM [facility] Lymph % 23.4 % 07/14/2024 7:50 PM [facility] Lymph Absolute 2.03 0.90 - 3.20 x10(3)/mc L 07/14/2024 7:50 PM [facility] Monocyte % 6.8 % 07/14/2024 7:50 PM [facility] Monocyte Absolute 0.59 0.30 - 0.90 x10(3)/mc L 07/14/2024 7:50 PM [facility] Eos % 1.7 % 07/14/2024 7:50 PM [facility] Eos Absolute 0.15 0.00 - 0.40 x10(3)/mc L 07/14/2024 7:50 PM EDT [facility] Basophil % 0.3 % 07/14/2024 7:50 PM EDT [facility] Baso Absolute 0.03 0.00 - 0.10 x10(3)/mc L 07/14/2024 7:50 PM EDT [facility] Immature Gran % 0.5 % 7:50 PM EDT [facility] Immature Gran Absolute 0.04 0.00 - 0.04 x10(3)/mc L 07/14/2024 7:50 PM EDT [facility] Blood VENOUS BLOOD SPECIMEN / Unknown Venipuncture / Unknown 07/14/2024 7:39 PM EDT 07/14/2024 7:46 PM EDT Arthur Patel DO HEMATOLOGY ORDERABLE S [facility] [place] [address] documented in this encounter Visit Diagnoses Diagnosis [...] Units/hr (10 mL/hr), Intravenous, CONTINUOUS, Starting on Wed07/20/24 at 1630, Until Wed07/21/24 at 1613, Routine [...] PRN, Starting on 07/15/24 at 1530, Until Wed07/16/24 at 0038, with snacks, SNACK ASSOCIATED Give 1 unit for every 8 grams carbohydrate. Hold if not eating or if BG less than 70 mg/dL., Routine Given 07/15/2024 11:45 PM EDT 1 Units Given 07/15/2024 8:39 PM EDT 4 Units insulin lispro (HumaLOG;Admelog) (100 unit/mL) subcutaneous injection vial 0-8 Units 0-8 Units, Subcutaneous, 3 TIMES DAILY WITH MEALS, First dose on Wed07/15/24 at 1700, Until Discontinued, MEAL ASSOCIATED Give [...] TIMES DAILY BEFORE MEALS, First dose on Wed07/15/24 at 1630, Until Discontinued, CORRECTION BOLUS [1-6 [...] Intravenous, ONCE PRN, 1 dose, Starting on 07/14/24 at 2357, Until Wed07/14/24 at 2358, Per [...] Oral, EVERY 8 HOURS PRN, Starting on 07/14/24 [...] 50 mL Mini-Bag Plus 3.375 g, Intravenous, PROFESSOR OF COMMUNICATION ARTS TO O.R., 1 dose, On Wed07/14/24 at [...] over 4 Hours, Warning Vesicant/Irritant Medication Per broom worker labeling, do not administer or Y-site with [...] 2 HOURS, 2 doses, First dose on 07/16/24 at 1130, Last dose on 07/16/24 at 1330, Administer over 60 Minutes, Warning Vesicant/Irritant Medication New Bag 07/16/2024 11:37 AM EDT 10 mEq 100 mL/hr potassium chloride ER (Klor-Con M) crystal tablet 20 mEq 20 mEq, Oral, ONCE, 1 dose, On 07/16/24 at 1130, 20 mEq tablet may be [...] 40 mEq, Oral, ONCE, 1 dose, On 07/16/24 at 1300, May dissolve if unable to [...] 40 mEq, Oral, ONCE, 1 dose, On 07/17/24 at 0615, potassium chloride ER particle/crystal tablets [...] an associated drug lab level. Please see JAN for scheduled level. Warning Vesicant/Irritant Medication , [...] Wed07/15/24 at 0900, Until Discontinued, Routine 0857 (JAN Hold - Provider: Admin Adt - Reason: Transfer to a Procedural area)0900 (Automatically Held - Provider: Admin Adt)1206 (JAN Unhold - Provider: Admin Adt)1303 (Given - Provider: Enid Johnson LPN) 1321 (Given - Provider: Lauren Zavala RN) 0951 (Given - Provider: Nava Huggins RN) atorvastatin (Lipitor) tablet 80 mg 80 [...] Nick, RN)1018 (Stopped - Provider: Lauren Zavala, DAVID) heparin (porcine) (5,000 units/1 mL) subcutaneous injection 5,000 Units (CANCELED) 5,000 Units, Subcutaneous, EVERY 8 HOURS SCHEDULED, First dose on Wed07/19/24 at 2200, Until Discontinued, Routine 2111 (Given - Provider: Anabel Jonas, DAVID) 0625 (Given - Provider: Anabel Jonas, DAVID)1321 (Given - Provider: Lauren Zavala, DAVID) insulin glargine-ygfn (Semglee) (100 unit/mL) subcutaneous injection vial 50 Units 50 Units, Subcutaneous, NIGHTLY, First dose (after last modification) on Wed07/17/24 at 2100, Until Discontinued, Routine 0857 (JAN Hold - Provider: Admin Adt - Reason: Transfer to a Procedural area)1206 (JAN Unhold - Provider: Admin Adt)2007 (Given - Provider: Anabel Jonas, DAVID) 2019 (Given - Provider: Anabel Jonas RN) insulin lispro (HumaLOG;Admelog) (100 unit/mL) subcutaneous [...] Provider: Gavin Rudd RN - Reason: NPO)0857 (JAN Hold - Provider: Admin Adt - Reason: Transfer to a Procedural area)1200 (Automatically Held - Provider: Admin Adt)1206 (JAN Unhold - Provider: Admin Adt)1800 (Given - Provider: Gavin Rudd, DAVID) 0800 (Not Given - Provider: Lauren Zavala RN - Reason: NPO)1400 (Given - Provider: Lauren Zavala, RN)1757 (Given - Provider: Lauren Zavala, RN) 0957 (Given - Provider: Nava Huggins, DAVID)1305 (Given - Provider: Nava Huggins, DAVID)1700 (Due) insulin lispro (HumaLOG;Admelog) (100 unit/mL) subcutaneous [...] Cm RN)0420 (Not Given - Provider: Cecilia Cm, RN - Reason: Order parameters not met)0748 (Given - Provider: Gavin Rudd, RN - Comment: BG 195)0857 (MAR Hold [...] Knowles, RN)0409 (Given - Provider: Carlos Enrique Knowles, RN)0956 (Given - Provider: Nava Huggins, DAVID [...] Zavala RN) 0950 (Given - Provider: Nava Huggins RN) metoprolol succinate XL (Toprol-XL) tablet 25 [...] Lauren Zavala RN) 0950 (Given - Provider: Nvaa Huggins, DAIVD) piperacillin-tazobactam (Zosyn) 3.375 g vial attach to sodium chloride 0.9% 50 mL Mini-Bag Plus 3.375 g, Intravenous, EVERY 8 HOURS, First dose on 07/16/24 at 1230, Until Discontinued, Administer over 4 Hours, Warning Vesicant/Irritant Medication Per broom worker labeling, do not administer or Y-site with [...] Enid Johnson LPN)1705 (Stopped - Provider: Gavin Rudd, DAVID)1939 (New Bag - Provider: Anabel Jonas RN)2341 (Stopped - Provider: Anabel Jonas RN) 0412 (New Bag - Provider: Anabel Jonas RN)0812 (Stopped - Provider: Lauren Zavala, DAVID)1302 (New Bag - Provider: Lauren Zavala, DAVID)1702 (Stopped - Provider: Lauren Zavala RN)2037 (New Bag - Provider: Anabel Jonas RN) 0037 (Stopped - Provider: Carlos Enrique Knowles RN)0409 (New Bag - Provider: Carlos Enrique Knowles RN)0809 (Stopped - Provider: Nava Huggins RN)1307 (New Bag - Provider: Nava Huggins, DAVID)1707 (Stopped - Provider: Nava Huggins, DAVID) protriptyline (Vivactil) tablet 10 mg 10 mg, [...] rx notified)1522 (Given - Provider: Nava Huggins, RN) rivaroxaban (Xarelto) tablet 20 mg 20 mg, Oral, DAILY, First dose on Wed07/21/24 at 1730, Until Discontinued, Routine, rivaroxaban (Xarelto) Indication: Peripheral Artery Disease, Stable 1759 (Given - Provider: Nava Huggins, RN) senna-docusate [...] Admin Adt)2007 (Given - Provider: Anabel Jonas, DAVID) 0900 (Due)2100 (Given - Provider: Anabel Jonas, RN) 0954 (Given - Provider: Nava Huggins, [...] LPN) 1322 (Given - Provider: Lauren Zavala, RN) 1111 (Given - Provider: Nava Huggins, DAVID - Comment: missing medication rx notified) Continuous [...] Routine 0216 (New Bag - Provider: Lindsey Haddad, RN)0857 (JAN Hold - Provider: Admin Adt [...] Starting on Angelita 07/20/24 at 1630, Until 07/21/24 at 1613, Routine 1720 (New Bag - [...] DAVID) 0409 (Given - Provider: Carlos Enrique Knowles RN)0954 (Given - Provider: Nava Huggins, DAVID) [...] Procedural area)1206 (MAR Unhold - Provider: Admin Adt) fentaNYL (pf) [...] PRN, Starting on 07/16/24 at 0039, Until 07/21/24 at 2209, Low blood sugar, For BG [...] area)1206 (JAN Unhold - Provider: Admin Adt) insulin lispro (HumaLOG;Admelog) (100 unit/mL) subcutaneous injection vial 0-20 Units 0-20 Units, Subcutaneous, 3 TIMES DAILY PRN, Starting on Tu07/18/24 at 0726, Until Wed07/21/24 at 2209, with snacks, SNACK ASSOCIATED Give 1 unit for every 4 grams carbohydrate. Hold if not eating or if BG less than 70 mg/dL., Routine 0857 ([facility] Hold - Provider: Admin Adt - Reason: Transfer to a Procedural area)1206 ([facility] Unhold - Provider: Admin Adt) lactulose (Chronulac) (0.67 gram/mL) oral liquid 20 g(Linked Group 3) 20 g, Oral, DAILY PRN, Starting on 07/15/24 at 1431, Until Wed07/21/24 at 2209, Constipation, Give if no BM 24 hr after prior interventions or if BM is desired within 2 hr. Give concomitantly with any scheduled bowel medications ordered, Routine 0857 ([facility] Hold - Provider: Admin Adt - Reason: Transfer to a Procedural area)1206 ([facility] Unhold - Provider: Admin Adt) lactulose [...] scheduled bowel medications ordered. , Routine 0857 ([facility] Hold - Provider: Admin Adt - Reason: Transfer to a Procedural area)1206 ([facility] Unhold - Provider: Admin Adt) lidocaine (Xylocaine) 1% (10 mg/mL) injection 3 mg 3 mg (0.3 mL), Subcutaneous, ONCE PRN, 1 dose, Starting on Wed07/14/24 at 2208, Until Wed07/21/24 at 2209, for discomfort with PIV insertion, Routine 0857 ([facility] Hold - Provider: Admin Adt - Reason: Transfer to a Procedural area)1206 ([facility] Unhold - Provider: Admin Adt) magnesium [...] any scheduled bowel medications ordered., Routine 0857 ([facility] Hold - Provider: Admin Adt - Reason: Transfer to a Procedural area)1206 ([facility] Unhold - Provider: Admin Adt) melatonin [...] 45 minutes if ineffective. , Routine 0857 (MAR Hold - Provider: Admin Adt - Reason: Transfer to a Procedural area)1206 ([facility] Unhold - Provider: Admin Adt) oxyCODONE (Roxicodone) tablet 5 mg (COMPLETED) 5 mg, Oral, ONCE PRN, 1 dose, Starting on Angelita 07/20/24 at 0356, Until Angelita 07/20/24 at 0412, Pain, Routine 0412 (Given - Provider: Anabel Jonas RN) polyethylene glycoL (Miralax) packet 17 g(Linked Group 3) 17 g, Oral, DAILY PRN, Starting on 07/15/24 at 1431, Until Wed07/21/24 at 2209, Constipation, Give if no BM within last 24 hr. Give concomitantly with any scheduled bowel medications ordered. , Routine 0857 ([facility] Hold - Provider: Admin Adt - Reason: Transfer to a Procedural area)1206 ([facility] Unhold - Provider: Admin Adt) prochlorperazine (Compazine) (5 mg/mL) injection 10 mg(Linked Group 6) 10 mg, Intravenous, EVERY 6 HOURS PRN, Starting on Wed07/14/24 at 2208, Until Wed07/21/24 at 2209, Nausea, Nausea/Vomiting, If multiple antiemetics are ordered, use ondansetron first. If ondansetron ineffective use prochlorperazine. Only give IV if unable to take PO, Routine 0857 ([facility] Hold - Provider: Admin Adt - Reason: Transfer to a Procedural area)1206 ([facility] Unhold - Provider: Admin Adt) prochlorperazine (Compazine) tablet 10 mg(Linked Group 6) 10 mg, Oral, EVERY 6 HOURS PRN, Starting on Wed07/14/24 at 2208, Until Wed07/21/24 at 2209, Nausea, Nausea/Vomiting, If multiple antiemetics are ordered, use ondansetron first. If ondansetron ineffective use prochlorperazine. PO Preferred. If patient unable to take PO, may give IV if ordered., Routine 0857 ([facility] Hold - Provider: Admin Adt - [...] at 220, Constipation, Give if no BM within last 24 hr. Give concomitantly with any scheduled bowel medications ordered. , Routine And bisacodyL (Dulcolax) suppository 10 mgJump to med 10 mg, Rectal, DAILY PRN, Starting on 07/15/24 at 1431, Until Wed07/21/24 at 220, Constipation, Give if no BM within last [...] PRN, Starting on Wed07/14/24 at 2208, Until 07/21/24 at 2209, Nausea, Nausea/Vomiting, If multiple antiemetics are ordered, use ondansetron first. If ondansetron ineffective use prochlorperazine. Only give IV if unable to take PO, Routine documented in this encounter Care Teams Industrial Hygiene Engineer Relationship Specialty Start Date End Date None None PCP - General 05/27/24 09/17/24 documented as of this encounter
--- OUTSIDE RECORDS SUMMARY | 2024-09-20 08:22 | XMS_ITS | Encounter Summary ---
Author Organization [facility] [place] [address] Care Team Providers Care Marriage Counselor Minister Name Role Phone None Primary Care Provider Unavailabl e Encounter Details Date Type Department Care Team (Latest Contact Info) Description 07/20/2024 Travel Social History Tobacco Use Types Packs/Day Years Used Date Smoking Tobacco: Every Day Cigarettes 1 25 Started: 12/28/1986; Last attempted to quit: 12/28/2011 Alcohol Use Standard Drinks/Week Comments No 0 (1 standard drink = 0.6 oz pur e alcohol) [facility] Utilities Answer Date Recorded In [...] time in the past 12 m [facility], were you homeless or living in a long term (including now)? No 07/17/2024 DH IPV Inpatient [...] on filedocumented in this encounter Care Teams Marriage Counselor Minister Relationship Specialty Start Date End Date None None PCP - General 05/27/24 09/17/24 documented as of this encounter
--- OUTSIDE RECORDS SUMMARY | 2024-09-20 08:23 | XMS_ITS | Encounter Summary ---
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 [place] [address] [facility] Referral ID Status Reason Start Date Expiration Date Visits Re quested Visits Authorized [id number] 1 1 Encounter Details Date Type Department Care Team (Late st Contact Info) Description 07/19/2024 8:45 AM EDT - 07/19/2024 10:21 AM EDT Surgery [place] [address] Thony Garcia MD [facility] [place] [address] AMPUTATION TOE, METATARSO-PHALANGEAL JOINT (WRVU 3.51) Social History Tobacco Use Types Packs/Day Years Used Date Smoking Tobacco: Every Day Cigarettes 1 25 Started: 12/28/1986; Last attempted to quit: 12/28/2011 Alcohol Use Standard Drinks/Week Comments No 0 (1 standard drink = 0.6 oz pur e alcohol) [facility] Utilities Answer Date Recorded In the past 12 months has [employer] electric, gas, oil, or water company threatened [...] [place] (including now)? No 07/17/2024 DH IPV Inpatient [...] included. Inpatient - Discharge Summary Patient Name: Geovnana Dixon Jr. Patient Age: 49 y.o. Birthdate: [...] patient has been previously admitted to the [facility] Vascular Surgery service on 05/28 - 06/02 [...] tobacco/substance abuse, narcolepsy/cataplexy, who initially presented to [facility] ED with left foot wounds/cellulitis and concern for limb ischemia [facility]. Recent admit 05/2024 for short segment left popliteal occlusion; he was treated with a heparin drip and antibiotics for cellulitis with improvement. He was discharged on Xarelto 2.5mg BID, aspirin and short course of Augmentin with instructions to be seen in 1 mo [facility], which he did not show [...] of an occluded SVG-RPDA graft with a REHAB DIRECTOR OCCUPATIONAL THERAPIST of his right coronary artery. He has [...] 0.55 (L) 07/21/2024 Glucose 172 07/21/2024 ABIs 07/17/24: Findings: Right Pressure (mm Hg) ELEN Waveform TBI Brachial Artery 152 Dorsalis Pedis (Ankle) Artery 167 1.10 Triphasic Posterior Tibial (Ankle) Artery 168 1.11 Triphasic Great Toe 141 0.93 Left Pressure (mm Hg) ELEN Waveform TBI Brachial Artery 149 Dorsalis Pedis (Ankle) Artery 83 0.55 [place]-Biphasic Posterior Tibial (Ankle) Artery 87 0.57 Monophasic [...] Appointments and Orders Future Orders Complete By [employer] [EQ161 Custom] As directed Process Instructions: Scheduling Instructions: Comments: Geovanna Dixon Jr. [address] [facility] [address] [phone] (home) Telephone Information: Diagnosis: deconditioning with Unsteady gait Significant weakness, ataxia or gait abnormality Patient's: Hgt: Ht Readings from Last 1 Encounters: 07/14/24 : 177.8 cm (5' 10) Wgt: Wt Readings from Last 1 Encounters: 07/14/24 : 99.8 kg (220 lb) VENDOR: [employer] Ordering: Front wheel walker Deliver to 's hospital room #: 448A Questions: Device Needed: [...] Blood thinner have been sent to your [facility] in [facility]. Anticoagulation: xarelto 20 mg daily [...] For any problems or questions please call [phone] For issues on weeknights after 5pm and weekends please call [phone] and ask for the Vascular Fellow concreting supervisor. Geovanna-for your diabetes! Most important thing is [...] Tierney APRN - 07/20/2024 10:13 AM EDT [facility] Interventional Radiology Post Angiography Instructions Procedure: [...] hoildays, call and ask for the president mortgage company concreting supervisor. OR Vascular Department at until 4:45pm. After 4:45pm call [phone] and ask for the Vascular resident concreting supervisor. 10. If you are a diabetic and [...] Blood thinner have been sent to your [facility] in [facility]. Anticoagulation: xarelto 20 mg daily [...] For any problems or questions please call [phone] For issues on weeknights after 5pm and weekends please call [phone] and ask for the Vascular Fellow concreting supervisor. Geovanna-for your diabetes! Most important thing is [...] by mouth 2 times daily. 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: Medications - Outpatient treatment regimen [...] MD at [facility] MAIN OR PRO CABG, ARTERY-VEIN, SINGLE 01/04/2012 @CABG, VENOUS & ARTERIAL GRAFT;SINGLE VEIN GRAFT performed by INNA TOVAR at [facility] MAIN OR PRO ENDOSCOPY W/VIDEO-ASST VEIN HARVEST, CABG 01/04/2012 ENDOSCOPIC HARVEST VEIN(S) FOR CABG performed by INNA TOVAR at [facility] MAIN OR Active Non-Hospital Problems Diagnosis CAD [...] 12:16-12:54 Total Time: 38 minutes; re-evaluation Dominique Anne, PT, Doctor of Physical Therapy Pager: [phone] Physical Therapy Inpatient Rehabilitation Department * Carlos [...] Anne PT, Doctor of Physical Therapy Pager: [phone] Physical Therapy Inpatient Rehabilitation Department * Hailey Nick RN - 07/20/2024 10:00 AM EDT ANGIO NURSING DATABASE Name: Geovanna Dixon Jr. Date of : 1975 AGE: 49 y.o. 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 male with CLTI who presents to for LLE angiogram with possible intervention. Past [...] vial 1-11 Units 1-11 Units Subcutaneous Q[facility]H [facility] Cristiano Jones MD 5 Units at 07/20/24 [...] Q6H PRN Cristiano Jones MD No current [facility]-ordered outpatient medications on file. Allergies No Known [...] ASA II Rubio Grimaldo MD Vascular Surgery [facility] Vascular Surgery Floor Pager: [phone] Vascular Surgery Consult Pager: [phone] * Rubio Grimaldo MD - 07/20/2024 8:00 [...] patient has been previously admitted to the [facility] Vascular Surgery service on 05/28 - 06/02 [...] nonfocal, follows commands Labs: Recent Labs 07/20/24 03407/19/24 03407/18/24 0333 WBC 16.61* 12.45* 11.56* HGB 13.0* 13.6* 13.4* HCT 39.2* 41.0 40.2* PLATELET 458* 421* 392* Recent Labs 07/20/24 03407/19/24 0345 07/18/24 0333 NA 135 138 136 K 4.2 3.9 4.3 CL 102 103 101 CO2 21* 23 23 BUN 12 7* 8* CREATININE 0.53* 0.56* 0.53* PHOS 3.4 4.3 3.7 CALCIUM 9.4 9.6 9.2 Microbiology: Microbiology Results (last 7 days) Procedure Component Value - Date/Time Anaerobic Culture [[id number]] Collected: 07/19/24950 Lab Status: Preliminary result Specimen: Bone from Toe(s), Left Foot Updated: 07/20/24 1420 Anaerobic Culture No anaerobic organisms isolated to date Fungus culture [[id number]] Collected: 07/19/24950 Lab Status: Preliminary result Specimen: Bone from Toe(s), Left Foot Updated: 07/20/24 0931 Fungus Culture No fungus isolated to date Bone Culture [[id number]] Collected: 07/19/24950 Lab Status: Preliminary result Specimen: Bone from Toe(s), Left Foot Updated: 07/20/24 0650 Bone Culture No growth to date Gram Stain No neutrophils seen No microorganisms seen MRSA PCR Screen [[id number]] (Normal) Collected: 07/16/24 1407 Lab Status: Final result Specimen: Swab from Nares Updated: 07/17/24 1804 MRSA PCR Not Detected Narrative: This test was performed using the Xpert MRSA NxG test kit and is run on the ModriaXpert Dx System. This test is cleared by the U.S. Food and Drug Administration for clinical use and its performance characteristics have been verified by the Clinical [employer] [facility] [employer] [facility] at [facility]. This test was performed using the Xpert MRSA NxG test kit and is run on the ModriaXpert Dx System. This test is cleared by the U.S. Food and Drug Administration for clinical use and its performance characteristics have been verified by the Clinical [employer] [facility] [employer] [facility] at [facility]. New Studies: ABIs 07/17/24: Findings: Right Pressure (mm Hg) ELEN Waveform TBI Brachial Artery 152 Dorsalis Pedis (Ankle) Artery 167 1.10 Triphasic Posterior Tibial (Ankle) Artery 168 1.11 Triphasic Great Toe 141 0.93 Left Pressure (mm Hg) ELEN Waveform TBI Brachial Artery 149 Dorsalis Pedis (Ankle) Artery 83 0.55 [place]-Biphasic Posterior Tibial (Ankle) Artery 87 0.57 Monophasic [...] who have questions please contact the health director of career resources that requested your imaging first. Electronically signed by: Geovanna Ray MD, [facility] ([phone]), at 07/14/2024 10:[address] Angiogram Aortic [...] 2.6 cm vessel length at and just eeayt-lhs-coao, similar to prior. Anterior tibial artery: No [...] who have questions please contact the health director of career resources that requested your imaging first. Electronically signed by: Geovanna Ray MD, [facility] ([phone]), at 07/15/2024 1:13 AM Assessment & Plan: [...] status: Full Rubio Grimaldo MD 07/20/2024 Pager: [phone] * Pj, Fallon Melchor MD - 07/19/2024 3:21 PM EDT Post-Operative [...] as appropriate. Thanks. Oli Call, ELDON Beeper# [id number] * María Carranza APRN - 07/19/2024 9:54 [...] patient has been previously admitted to the [facility] Vascular Surgery service on 05/28 - 06/02 [...] Component Value - Date/Time MRSA PCR Screen [[id number]] (Normal) Collected: 07/16/24 1407 Lab Status: Final result Specimen: Swab from Nares Updated: 07/17/241803 MRSA PCR Not Detected Narrative: This test was performed using the Xpert MRSA NxG test kit and is run on the sezmi GeneXpert Dx System. This test is cleared by the U.S. Food and Drug Administration for clinical use and its performance characteristics have been verified by the [employer] [facility] [employer] [facility] at [facility]. This test was performed using the Xpert MRSA NxG test kit and is run on the ModriaXCaliopa Dx System. This test is cleared by the U.S. Food and Drug Administration for clinical use and its performance characteristics have been verified by the Clinical [employer] [facility] [employer] [facility] at [facility]. New Studies: ABIs 07/17/24: Findings: Right Pressure (mm Hg) ELEN Waveform TBI Brachial Artery 152 Dorsalis Pedis (Ankle) Artery 167 1.10 Triphasic Posterior Tibial (Ankle) Artery 168 1.11 Triphasic Great Toe 141 0.93 Left Pressure (mm Hg) ELEN Waveform TBI Brachial Artery 149 Dorsalis Pedis (Ankle) Artery 83 0.55 [place]-Biphasic Posterior Tibial (Ankle) Artery 87 0.57 Monophasic [...] who have questions please contact the health director of career resources that requested your imaging first. Electronically signed by: Geovanna Ray MD, [facility] ([phone]), at 07/14/2024 10:[address] Angiogram Aortic [...] 2.6 cm vessel length at and just urscx-ssd-jrjs, similar to prior. Anterior tibial artery: No [...] who have questions please contact the health director of career resources that requested your imaging first. Electronically signed by: Geovanna Ray MD, [facility] ([phone]), at 07/15/2024 1:13 AM Assessment & Plan: [...] status: Full María Carranza APRN 07/19/2024 Pager: [phone] * Oli Call, PT - 07/18/2024 12:53 [...] possible need for different footwear. Assessment: Geovanna Viet Dixon Jr. was seen today for [...] 13 ; functional mobility OLI CALL, PT Pager:[phone] Physical Therapy Inpatient Rehabilitation Department * Fallon Oliva MD - 07/18/2024 10:33 AM EDT Vascular [...] patient has been previously admitted to the [facility] Vascular Surgery service on 05/28 - 06/02 [...] 149 Dorsalis Pedis (Ankle) Artery 83 0.55 [place]-Biphasic Posterior Tibial (Ankle) Artery 87 0.57 Monophasic [...] who have questions please contact the health director of career resources that requested your imaging first. Electronically signed by: Geovanna aRy MD, [facility] ([phone]), at 07/14/2024 10:[address] Angiogram Aortic [...] 2.6 cm vessel length at and just dolps-qdq-ggwn, similar to prior. Anterior tibial artery: No [...] who have questions please contact the health director of career resources that requested your imaging first. Electronically signed by: Geovanna Ray MD, [facility] ([phone]), at 07/15/2024 1:13 AM Assessment & Plan: [...] 07/18/2024 Vascular Surgery [phone] * Lakeisha Berry, CERTIFIED DETENTION DEPUTY - 07/18/2024 10:00 AM EDT Glucose Management Team Inpatient Progress Note HPI Geovanna Dixon Jr. is a 49 y.o. 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 Lakeisha Berry, RESHMA, DNP, -[facility] Inpatient Diabetes Management Team Team pager #[phone] (DRAFT) Diabetes Discharge Instructions & Recommendations Check [...] TOVAR at [facility] MAIN OR PRO ENDOSCOPY W/VIDEO-ASST VEIN HARVEST, CABG 01/04/2012 ENDOSCOPIC HARVEST VEIN(S) FOR CABG performed by INNA TOVAR at [facility] MAIN OR Social History: Home set-up: Lives [...] Total Minutes, Physical Therapy: 25 Billing Code: amy CALL, PT Pager: [phone] Physical Therapy Inpatient Rehabilitation Department * Lakeisha Berry, CERTIFIED DETENTION DEPUTY - 07/17/2024 2:00 PM EDT Glucose Management Team Inpatient Progress Note HPI Geovanna Dixon Jr. is a 49 y.o. 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 Original consult completed: 07/15 by [...] 205* 187 254* 324* ASSESSMENT Geovanna Dixon Florencio is a 49 y.o. 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 Lakeisha Berry APRN, DENISSE, -[facility] Inpatient Diabetes Management Team Team pager #[phone] * Hermila White APRN - 07/17/2024 7:45 [...] patient has been previously admitted to the [facility] Vascular Surgery service on 05/28 - 06/02 [...] WC insulin lispro 1-6 Units Subcutaneous Q4H [facility] insulin glargine (Lantus;Semglee) (100 unit/mL) subcutaneous [...] intact, nonfocal, follows commands Labs: Recent Labs 07/17/2434107/16/24 0207 07/15/24 0045 07/14/241938 WBC 11.02* 11.08* [...] who have questions please contact the health director of career resources that requested your imaging first. Electronically signed by: Geovanna Ray MD, [facility] ([phone]), at 07/14/2024 10:[address] Angiogram Aortic [...] 2.6 cm vessel length at and just gjtur-yoq-rusi, similar to prior. Anterior tibial artery: No [...] who have questions please contact the health director of career resources that requested your imaging first. Electronically signed by: Geovanna Ray MD, [facility] ([phone]), at 07/15/2024 1:13 AM Assessment & Plan: [...] (patient unsure whether he was taking this TEMPERATURE REGULATOR) - Glargine 50 units nightly; meal associated lispro ICR 1:6g; moderate correction scale q4hrs - Diabetes management team consult, appreciate recommendations - Home meds: Losartan, metoprolol, protriptyline, PPI, venlafaxine - Full code Hermila White, RESHMA 07/17/2024 Pager: [phone] * Dai Carter RN - 07/17/2024 2:43 [...] patient has been previously admitted to the [facility] Vascular Surgery service on 05/28 - 06/02 [...] who have questions please contact the health director of career resources that requested your imaging first. Electronically signed by: Geovanna Ray MD, [facility] ([phone]), at 07/14/2024 10:[address] Angiogram Aortic [...] 2.6 cm vessel length at and just vcjnu-mai-toid, similar to prior. Anterior tibial artery: No [...] who have questions please contact the health director of career resources that requested your imaging first. Electronically signed by: Geovanna Ray MD, [facility] ([phone]), at 07/15/2024 1:13 AM Assessment & Plan: [...] (patient unsure whether he was taking this TEMPERATURE REGULATOR) - Glargine 45 units nightly; meal associated lispro ICR 1:6g; moderate correction scale q4hrs - Diabetes management team consult, appreciate recommendations - Home meds: Losartan, metoprolol, protriptyline, PPI, venlafaxine - Full code Hermila White APRN 07/16/2024 Pager: [phone] * Dayanara Grover MD - 07/16/2024 8:52 [...] management and to provide a review of detention diabetes care. Objective Temp: [36.8 ??C (98.2 [...] he will need outpatient follow up at [facility] endocrine clinic. He lives in [facility], but notes he has a [...] primary team (vascular surgery). Dayanara Grover PGY-5 [facility] Endocrinology Associated attestation - Karen Reno MD [...] regarding elevated blood sugars * Hermila White, CERTIFIED DETENTION DEPUTY - 07/15/2024 2:16 PM EDT Images from [...] patient has been previously admitted to the [facility] Vascular Surgery service on 05/28 - 06/02 [...] or shortness of breath. - Last BM TEMPERATURE REGULATOR Objective: Temp: [36.4 ??C (97.5 ??F)-36.7 ??C [...] who have questions please contact the health director of career resources that requested your imaging first. Electronically signed by: Geovanna Ray MD, [facility] ([phone]), at 07/14/2024 10:[address] Angiogram Aortic [...] 2.6 cm vessel length at and just nznqf-wmr-lnmn, similar to prior. Anterior tibial artery: No [...] who have questions please contact the health director of career resources that requested your imaging first. Electronically signed by: Geovanna Ray MD, [facility] ([phone]), at 07/15/2024 1:13 AM Assessment & Plan: [...] (patient unsure whether he was taking this TEMPERATURE REGULATOR) - Glargine 28 units nightly; meal associated lispro ICR 1:8g; moderate correction scale to [id number] - Diabetes management team consult - Home meds: Losartan, metoprolol, protriptyline, PPI, venlafaxine - Full code Hermila White APRN 07/15/2024 Pager: [phone] documented in this encounter H&P Notes * Dejah Marshall MD - 07/14/2024 10:16 PM EDT Images from the original note were not included. Vascular Surgery H&P Note Patient Name: Geovanna Dixon Jr. MR#: [id number] : 1975 Admission Date: 07/14/2024 History of [...] patient has been previously admitted to the [facility] Vascular Surgery service on 05/28 - 06/02 [...] TOVAR at [facility] MAIN OR PRO ENDOSCOPY W/VIDEO-ASST VEIN HARVEST, CABG 01/04/2012 ENDOSCOPIC HARVEST VEIN(S) FOR CABG performed by INNA TOVAR at [facility] MAIN OR Home Medications: Current Outpatient Medications [...] data in the 24 hours ending 07/15/24 041 Carb Control diet 60/60/75 CHO counting level [...] LACTATEVEN 1.1 No results for input(s): PHART, HFF5GPY, PO2ART, IOT6HPY in the last 72 hours. Studies: No [...] - 07/14/2024 4:47 PM EDT Sending Facility: [facility] Reason for Transfer: Vascular consult Report: Hx ischemic ulcer and DM T2. Has trouble getting to appointments at [facility] due to long drive. Decreased cap refill L left with streaking and decreased pulses. Lactate 3.2. Glucose 630. Given 10u of regular insulin, 500ml NS, 2g Cefepime, 1.5 vanc. 20g L AC. Vital Signs: Pulse: 97 B/P: 138/94 Resp: RA SPO2: 97% O2 LPM: RA GCS: 15 BGL: Temp: 36.8c Transporting Service: [place] Time of Departure: 1650 ETA: 1800 documented [...] Process Patient is insured through: Primary Insurance: [employer] MA[employer]ED [employer]ARE Payor: [employer] / Plan: [employer] PPO / Product Type: *No Product type* / Secondary Insurance: N/A Prescription Coverage: Yes This plan was formulated with input from patient and team. All are in agreement with plan. IMM on shared list for [facility] to deliver. 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 [phone] * Plan of Care - Carlos Enrique [...] (Interventions Implemented as Appropriate) Flowsheets (Taken 07/20/2024 7054) Plan of Care Reviewed With: patient Progress: [...] Promotion: independence encouraged BADL personal objects within [facility] safe use of adaptive equipment encouraged Intervention: [...] Prevention: activity supervised assistive device/personal items within [facility] fall prevention program maintained nonskid shoes/slippers when [...] patient has been previously admitted to the [facility] Vascular Surgery service on 05/28 - 06/02 [...] Jones MD - 07/19/2024 10:11 AM EDT [facility] Operative Note Patient Name: Geovanna Viet Dixon Jr. : [id number] MR#: [id number] Case Date: 07/19/2024 Surgeon: Surgeons and Role: [...] have. Alternately, during off-hours you may call [phone] to contact a pharmacist. * Plan of [...] patient has been previously admitted to the [facility] Vascular Surgery serviceon 05/28 - 06/02 of [...] TOVAR at [facility] MAIN OR PRO ENDOSCOPY W/VIDEO-ASST VEIN HARVEST, CABG 01/04/2012 ENDOSCOPIC HARVEST VEIN(S) FOR CABG performed by INNA TOVAR at [facility] MAIN OR Active Non-Hospital Problems Diagnosis CAD [...] only Total Minutes, Occupational Therapy: 23 (evaluation ([id number])) OT Evaluation Code Rationale: Diagnosis & Pertinent Co-Morbidities affecting Plan of Care: see PMHx Occupational Profile & Client History: Brief Expanded Extensive X Assessment of Occupational Performance: 1-3 performance deficits X 3-5 performance deficits 5 + performance deficits Clinical Decision Making: Low Moderate High X Clinical decision making of low complexity using standardized patient assessment instrument and measurable assessment of functional outcome. Pager: [phone] Camille Holloway OT 07/17/2024 Occupational Therapy Rehabilitation [...] 180 days) Any patient receiving care in [place] must abide by [place] law. The hierarchy [...] (i) The agent with financial power of state attorney or a conservator appointed in accordance [...] in a [place] health [place] facility (including now)?: No In the past 12 months has the [place] [employer] gas, oil, or water [employer] threatened to shut off services in your [...] DME: none Home Address confirmed as: [address], [place], [place] Social & Family Supports: All names [...] points: Addiction likely Other Pertinent/Service Specific Information: technology coach to see patient. Hx of cocaine use Health/Prescription Coverage: Primary nsurance: [employer] MA[employer]GED MEDICARE Payor: [employer] MEDICARE / Plan: [employer]ED MEDICARE PPO / Product Type: *No Product type* / Secondary Insurance: N/A ONLY if patient has Medicare A&B - Does this patient have secondary insurance?: No ; Why not?: Managed Medicare Prescription Coverage: Yes Preferred Pharmacy: [id number] - [place], [place] - [address] [facility] [address] [address] - [place], [place] - [address] [address] [place] Status: Patient is a : No Primary [...] dry andstable, no open areas, no drainage. Mark with povidone- iodine daily and leave open [...] or the wound care team on pager [phone] with skin and wound care concerns or questions. * Consult Note - Cynthia Carreon - 07/17/2024 11:00 AM EDT PT sleeping RC will return. * Consult Note - Angel Oliva MD - 07/17/2024 8:52 AM EDT Images from the original note were not included. [facility] Cardi[facility] [place] [id number] CARDIOLOGY CONSULT NOTE Date of Consultation: 07/17/2024 [...] tobacco/substance abuse, narcolepsy/cataplexy, who initially presented to [facility] ED with left foot wounds/cellulitis and concern for limb ischemia who was transferred to [facility] for vascular surgery assessment. Recent admit 05/2024 [...] patient has been previously admitted to the [facility] Vascular Surgery service on 05/28 - 06/02 [...] Wing D at [facility] ED to Hosp-Admission (Discharged) from 05/28/2024 in Surgical Unit Level 4 Wing D at [facility] Weight 99.8 kg (220 lb) [...] tobacco/substance abuse, narcolepsy/cataplexy, who initially presented to [facility] ED with left foot wounds/cellulitis and concern for limb ischemia [facility]. Recent admit 05/2024 for short segment left popliteal occlusion; he was treated with a heparin drip and antibiotics for cellulitis with improvement. He was discharged on Xarelto 2.5mg BID, aspirin and short course of Augmentin with instructions to be seen in 1 mo [facility], which he did not show [...] of an occluded SVG-RPDA graft with a REHAB DIRECTOR OCCUPATIONAL THERAPIST of his right coronary artery. He has [...] questions or concerns arise. Angel Oliva MD, [facility] Staff Ornamental Iron Worker Helper * Plan of Care - Lauren Mitchell RN - 07/16/2024 3:04 PM EDT OUTCOME EVALUATION NOTE: OUTCOME SUMMARY: VSS on RA. No complaints of pain. Voiding adequate amounts via urinal. 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 C/o numbness to LLE. PLAN MOVING FORWARD: [...] management and to provide a review of detention diabetes care. Diabetes History: Geovanna Dixon Jr. [...] he will need outpatient follow up at [facility] endocrine clinic. He lives in [facility], but notes he has a [...] primary team (vascular surgery). Dayanara Grover PGY-5 [facility] Endocrinology Associated attestation - Karen Reno MD [...] seen eye doctor in years, his triglycerides [id number] was very high, needs recheck and aggressive [...] 49 AM EDT Amputation Toe, Mt-P Jt ([id number]) 07/19/2024 8:57 AM EDT peripheral artery disease [...] - 199 mg/dL 07/21/2024 3:44 PM EDT [facility] Comment:Supplemental ranges: <140 mg/dL before meals <180 mg/dL all other times of the day. Blood CAPILLARY BLOOD / Unknown 07/21/2024 3:43 PM EDT 07/21/2024 3:44 PM EDT Thony Garcia MD POINT OF CARE TEST O GILDA Performing Organization Address [facility] Co de Phone Number [facility] [place] [address] * (ABNORMAL) POC, GLUCOSE (07/21/2024 12:18 PM EDT) Glucometer, POC 247(H) 65 - 199 mg/dL 07/21/2024 12:20 PM EDT [facility] Comment:Supplemental ranges: <140 mg/dL before meals <180 mg/dL all other times of the day. Blood CAPILLARY BLOOD / Unknown 07/21/2024 12:18 PM EDT 07/21/2024 12:20 PM EDT Thony Garcia MD POINT OF CARE TEST O RDERABLES Performing Organization Address City/[facility]/ZIP Co de Phone Number [facility] [place] [address] * POC, GLUCOSE (07/21/2024 8:37 AM EDT) Glucometer, POC 163 65 - 199 mg/dL 07/21/2024 8:38 AM EDT [facility] Comment:Supplemental ranges: <140 mg/dL before meals <180 mg/dL all other times of the day. Blood CAPILLARY BLOOD / Unknown 07/21/2024 8:37 AM EDT 07/21/2024 8:38 AM EDT Thony Garcia MD POINT OF CARE TEST O RDERABLES [facility] [place] [address] * (ABNORMAL) Basic Metabolic Panel (07/21/2024 5:55 AM EDT) Glucose 172 65 - 199 mg/dL 07/21/2024 6:45 AM EDT [facility] Comment:Glucose Concentratio n >=200 mg/dL plus symptoms is consistent with Diabetes Mellitus. Blood Urea Nitrogen 12 10 - 20 mg/dL 07/21/2024 6:45 AM [facility] Creatinine 0.55(L) 0.80 - 1.50 mg/dL 07/21/2024 6:45 [facility] Sodium 138 135 - 145 mMol/L 07/21/2024 6:45 AM [facility] Potassium 4.1 3.5 - 5.0 mMol/L 07/21/2024 6:45 AM [facility] Chloride 103 98 - 107 mMol/L 07/21/2024 6:45 AM [facility] Carbon Dioxide 23 22 - 31 mMol/L 07/21/2024 6:45 AM [facility] Anion Gap 12 5 - 15 mMol/L 07/21/2024 6:45 AM [facility] Calcium 9.4 8.5 - 10.5 mg/dL 07/21/2024 6:45 AM [facility] Est Glomerular Filtration Rate - Male 121 mL/min/1. 73 m?? 07/21/2024 6:45 AM EDT [facility] Comment: This patient's estimated [...] AM EDT Thony Garcia MD CHEMISTRY ORDERABLES [facility] [place] [address] * (ABNORMAL) CBC (with Diff) (07/21/2024 5:55 AM EDT) White Blood Cell 10.11(H) 4.00 - 9.50 x10(3)/mc L 07/21/2024 6:17 AM EDT [facility] Red Blood Cell 4.52(L) 4.58 - 5.54 x10(6)/mc L 07/21/2024 6:17 AM EDT [facility] Hemoglobin 13.2(L) 13.7 - 16.5 g/dL 07/21/2024 6:17 AM T [facility] Hematocrit 39.7(L) 40.5 - 48.5 % 07/21/2024 6:17 AM EDT [facility] Mean Cell Volume 87.8 82.9 - 93.1 fL 07/21/2024 6:17 AM EDT [facility] Mean Cell Hemoglobin 29.2 27.5 - 32.1 pg 07/21/2024 6:17 AM [facility] Mean Cell Hemoglobin Concentration 33.2 32.0 - 35.7 g/dL 07/21/2024 6:17 AM [facility] Platelet 405(H) 145 - 357 x10(3)/mc L 07/21/2024 6:17 AM [facility] Mean Platelet Volume 9.3 [...] % 1.6 % 07/21/2024 6:17 AM EDT [facility] Eos Absolute 0.16 0.00 - 0.40 x10(3)/mc L 07/21/2024 6:17 AM EDT [facility] Basophil % 0.7 % 07/21/2024 6:17 AM EDT [facility] Baso Absolute 0.07 0.00 - 0.10 x10(3)/mc L 07/21/2024 6:17 AM EDT [facility] Immature Gran % 0.5 % 6:17 AM EDT [facility] Immature Gran Absolute 0.05(H) 0.00 - 0.04 x10(3)/mc L 07/21/2024 6:17 AM EDT [facility] Blood VENOUS BLOOD SPECIMEN / Unknown IP Care Team Draw / Unknown 07/21/2024 5:55 AM EDT 07/21/2024 6:13 AM EDT Thony Garcia MD HEMATOLOGY ORDERABLE S [facility] [place] [address] * Phosphorus (07/21/2024 5:55 AM EDT) Phosphorus 3.9 2.5 - 4.5 mg/dL 07/21/2024 6:45 AM EDT [facility] Blood VENOUS BLOOD SPECIMEN / Unknown IP Care Team Draw / Unknown 07/21/2024 5:55 AM EDT 07/21/2024 6:13 AM EDT Thony Garcia MD CHEMISTRY ORDERABLES [facility] [place] [address] * Magnesium (07/21/2024 5:55 AM EDT) Magnesium 0.82 0.69 - 1.07 mMol/L 07/21/2024 6:45 AM EDT [facility] Blood VENOUS BLOOD SPECIMEN / Unknown IP Care Team Draw / Unknown 07/21/2024 5:55 AM EDT 07/21/2024 6:13 AM EDT Thony Garcia MD CHEMISTRY ORDERABLES [facility] [place] [address] * POC, GLUCOSE (07/21/2024 3:57 AM EDT) Glucometer, POC 163 65 - 199 mg/dL 07/21/2024 4:01 AM EDT [facility] Comment:Supplemental ranges: <140 mg/dL before meals <180 mg/dL all other times of the day. Blood CAPILLARY BLOOD / Unknown 07/21/2024 3:57 AM EDT 07/21/2024 4:01 AM EDT Thony Garcia MD POINT OF CARE TEST O RDERABLES Performing Organization Address City/[facility]/ZIP Co de Phone Number [facility] [place] [address] * POC, GLUCOSE (07/20/2024 11:54 PM EDT) Glucometer, POC 190 65 - 199 mg/dL 07/20/2024 11:58 PM EDT [facility] Comment:Supplemental ranges: <140 mg/dL before meals <180 mg/dL all other times of the day. Blood CAPILLARY BLOOD / Unknown 07/20/2024 11:54 PM EDT 07/20/2024 11:58 PM EDT Thony Garcia MD POINT OF CARE TEST O RDERABLES [facility] [place] [address] * POC, GLUCOSE (07/20/2024 8:17 PM EDT) Glucometer, POC 166 65 - 199 mg/dL 07/20/2024 8:17 PM EDT [facility] Comment:Supplemental ranges: <140 mg/dL before meals <180 mg/dL all other times of the day. Blood CAPILLARY BLOOD / Unknown 07/20/2024 8:17 PM EDT 07/20/2024 8:18 PM EDT Thony Garcia MD POINT OF CARE TEST O GILDA Performing Organization Address [facility] Co de Phone Number [facility] [place] [address] * (ABNORMAL) POC, GLUCOSE (07/20/2024 3:51 PM EDT) Glucometer, POC 218(H) 65 - 199 mg/dL 07/20/2024 3:51 PM EDT [facility] Comment:Supplemental ranges: <140 mg/dL before meals <180 mg/dL all other times of the day. Blood CAPILLARY BLOOD / Unknown 07/20/2024 3:51 PM EDT 07/20/2024 3:51 PM EDT Thony Garcia MD POINT OF CARE TEST O GILDA Performing Organization Address [facility] Co de Phone Number [facility] [place] [address] * POC, GLUCOSE (07/20/2024 10:55 AM EDT) Glucometer, POC 96 65 - 199 mg/dL 07/20/2024 10:56 AM EDT [facility] Comment:Supplemental ranges: <140 mg/dL before meals <180 mg/dL all other times of the day. Blood CAPILLARY BLOOD / Unknown 07/20/2024 10:55 AM EDT 07/20/2024 10:56 AM EDT Thony Garcia MD POINT OF CARE TEST O GILDA Performing Organization Address City/[facility] Co de Phone Number [facility] [place] [address] * Vein Map Arm, Bilateral (07/20/2024 10:48 AM EDT) [facility] Text Report Department: Vascular Surgery Lab Patient: [id number] (GEOVANNA DIXON) CPT: 16491 Referring Physician: THONY GARCIA ?? Indications: Patient [...] patient has been previously admitted to the [facility] Vascular Surgery service on 05/28 - 06/02 [...] the sedation RN. Anabel Finney MD, MPH [facility] Vascular Surgery ? Thony Garcia MD IMG IR ORDERABLES * POC, GLUCOSE (07/20/2024 8:12 AM EDT) Glucometer, POC 119 65 - 199 mg/dL 07/20/2024 8:12 AM EDT [facility] Comment:Supplemental ranges: <140 mg/dL before meals <180 mg/dL all other times of the day. Blood CAPILLARY BLOOD / Unknown 07/20/2024 8:12 AM EDT 07/20/2024 8:12 AM EDT Thony Garcia MD POINT OF CARE TEST O RDERABLES [facility] [place] [address] * (ABNORMAL) CBC (with Diff) (07/20/2024 3:42 AM EDT) White Blood Cell 16.61(H) 4.00 - 9.50 x10(3)/mc L 07/20/2024 4:23 AM EDT [facility] Red Blood Cell 4.44(L) 4.58 - 5.54 x10(6)/mc L 07/20/2024 4:23 AM [facility] Hemoglobin 13.0(L) 13.7 - 16.5 g/dL 07/20/2024 4:23 AM [facility] Hematocrit 39.2(L) 40.5 - 48.5 % 07/20/2024 4:23 AM [facility] Mean Cell Volume 88.3 82.9 - 93.1 fL 07/20/2024 4:23 AM [facility] Mean Cell Hemoglobin 29.3 [...] Neutrophil % 74.2 % 07/20/2024 4:23 AM [facility] Neutrophil Absolute (ANC) - Automated 12.32(H) 1.70 - 6.10 x10(3)/mc L 07/20/2024 4:23 AM [facility] Lymph % 16.5 % 07/20/2024 4:23 AM [facility] Lymph Absolute 2.74 0.90 - 3.20 x10(3)/mc L 07/20/2024 4:23 AM [facility] Monocyte % 7.5 % 07/20/2024 4:23 AM [facility] Monocyte Absolute 1.25(H) 0.30 - 0.90 x10(3)/mc L 07/20/2024 4:23 AM [facility] Eos % 0.8 % 07/20/2024 4:23 AM [facility] Eos Absolute 0.14 0.00 - 0.40 x10(3)/mc L 07/20/2024 4:23 AM [facility] Basophil % 0.4 % 07/20/2024 4:23 AM [facility] Baso Absolute 0.06 0.00 - 0.10 x10(3)/mc L 07/20/2024 4:23 AM EDT [facility] Immature Gran % 0.6 % 4:23 AM EDT [facility] Immature Gran Absolute 0.10(H) 0.00 - 0.04 x10(3)/mc L 07/20/2024 4:23 AM EDT [facility] Blood VENOUS BLOOD SPECIMEN / Unknown IP Care Team Draw / Unknown 07/20/2024 3:42 AM EDT 07/20/2024 4:09 AM EDT Thony Garcia MD HEMATOLOGY ORDERABLE S [facility] [place] [address] * (ABNORMAL) POC, GLUCOSE (07/20/2024 3:41 AM EDT) Glucometer, POC 204(H) 65 - 199 mg/dL 07/20/2024 3:41 AM EDT [facility] Comment:Supplemental ranges: <140 mg/dL before meals <180 mg/dL all other times of the day. Blood CAPILLARY BLOOD / Unknown 07/20/2024 3:41 AM EDT 07/20/2024 3:41 AM EDT Thony Garcia MD POINT OF CARE TEST O RDERABLES [facility] [place] [address] * (ABNORMAL) Basic Metabolic Panel (07/20/2024 3:41 AM EDT) Glucose 209(H) 65 - 199 mg/dL 07/20/2024 5:00 AM EDT [facility] Comment:Glucose Concentratio n >=200 mg/dL plus symptoms is consistent with Diabetes Mellitus. Blood Urea Nitrogen 12 10 - 20 mg/dL 07/20/2024 5:00 AM EDT [facility] Creatinine 0.53(L) 0.80 - 1.50 mg/dL 07/20/2024 5:00 AM [facility] Sodium 135 135 - 145 mMol/L 07/20/2024 5:00 AM [facility] Potassium 4.2 3.5 - 5.0 mMol/L 07/20/2024 5:00 AM [facility] Chloride 102 98 - 107 mMol/L 07/20/2024 5:00 AM [facility] Carbon Dioxide 21(L) 22 - 31 mMol/L 07/20/2024 5:00 AM [facility] Anion Gap 12 5 - 15 mMol/L 07/20/2024 5:00 AM [facility] Calcium 9.4 8.5 - 10.5 mg/dL 07/20/2024 5:00 AM [facility] Est Glomerular Filtration Rate - Male 122 mL/min/1. 73 m?? 07/20/2024 5:00 AM [facility] [...] AM EDT Thony Garcia MD CHEMISTRY ORDERABLES [facility] [place] [address] * Phosphorus (07/20/2024 3:41 AM EDT) Phosphorus 3.4 2.5 - 4.5 mg/dL 07/20/2024 4:40 AM EDT [facility] Blood VENOUS BLOOD SPECIMEN / Unknown IP Care Team Draw / Unknown 07/20/2024 3:41 AM EDT 07/20/2024 4:09 AM EDT Thony Garcia MD CHEMISTRY ORDERABLES Performing Organization Address City/[facility]/ZIP Co de Phone Number [facility] [place] [address] * Magnesium (07/20/2024 3:41 AM EDT) Pathologist [facility] Magnesium 0.90 0.69 - 1.07 mMol/L 07/20/2024 4:40 AM EDT [facility] Blood VENOUS BLOOD SPECIMEN / Unknown IP Care Team Draw / Unknown 07/20/2024 3:41 AM EDT 07/20/2024 4:09 AM EDT Thony Garcia MD CHEMISTRY ORDERABLES Performing Organization Address [facility] Co de Phone Number [facility] [place] [address] * (ABNORMAL) POC, GLUCOSE (07/20/2024 12:56 AM EDT) [facility] Glucometer, POC 342(H) 65 - 199 mg/dL 07/20/2024 12:58 AM EDT [facility] Comment:Supplemental ranges: <140 mg/dL before meals <180 mg/dL all other times of the day. Blood CAPILLARY BLOOD / Unknown 07/20/2024 12:56 AM EDT 07/20/2024 12:58 AM EDT Thony Garcia MD POINT OF CARE TEST O RDERABLES Performing Organization Address City/[facility]/ZIP Co de Phone Number [facility] [place] [address] * (ABNORMAL) POC, GLUCOSE (07/19/2024 11:04 PM EDT) Glucometer, POC 296(H) 65 - 199 mg/dL 07/19/2024 11:05 PM EDT [facility] Comment:Supplemental ranges: <140 mg/dL before meals <180 mg/dL all other times of the day. Blood CAPILLARY BLOOD / Unknown 07/19/2024 11:04 PM EDT 07/19/2024 11:05 PM EDT Thony Garcia MD POINT OF CARE TEST O GILDA Performing Organization Address City/[facility] Co de Phone Number [facility] [place] [address] * (ABNORMAL) POC, GLUCOSE (07/19/2024 7:38 PM EDT) Glucometer, POC 251(H) 65 - 199 mg/dL 07/19/2024 7:39 PM EDT [facility] Comment:Supplemental ranges: <140 mg/dL before meals <180 mg/dL all other times of the day. Blood CAPILLARY BLOOD / Unknown 07/19/2024 7:38 PM EDT 07/19/2024 7:39 PM EDT Thony Garcia MD POINT OF CARE TEST O DIMITRIERAHERNANDEZ [facility] [place] [address] * POC, GLUCOSE (07/19/2024 4:48 PM EDT) Glucometer, POC 171 65 - 199 mg/dL 07/19/2024 4:49 PM EDT [facility] Comment:Supplemental ranges: <140 mg/dL before meals <180 mg/dL all other times of the day. Blood CAPILLARY BLOOD / Unknown 07/19/2024 4:48 PM EDT 07/19/2024 4:49 PM EDT Thony Garcia MD POINT OF CARE TEST O RDERABLES Performing Organization Address City/[facility] Co de Phone Number [facility] [place] [address] * POC, GLUCOSE (07/19/2024 12:21 PM EDT) Glucometer, POC 143 65 - 199 mg/dL 07/19/2024 12:22 PM EDT [facility] Comment:Supplemental ranges: <140 mg/dL before meals <180 mg/dL all other times of the day. Blood CAPILLARY BLOOD / Unknown 07/19/2024 12:21 PM EDT 07/19/2024 12:22 PM EDT Thony Garcia MD POINT OF CARE TEST O RDERAHERNANDEZ Performing Organization Address [facility] Co de Phone Number [facility] [place] [address] * POC, GLUCOSE (07/19/2024 11:24 AM EDT) Glucometer, POC 111 65 - 199 mg/dL 07/19/2024 11:24 AM EDT [facility] Comment:Supplemental ranges: <140 mg/dL before meals <180 mg/dL all other times of the day. Blood CAPILLARY BLOOD / Unknown 07/19/2024 11:24 AM EDT 07/19/2024 11:24 AM EDT Thony Garcia MD POINT OF CARE TEST O GILDA Performing Organization Address City/[facility] Co de Phone Number [facility] [place] [address] * Anaerobic Culture (07/19/2024 9:51 AM EDT) Anaerobic Culture No anaerobic organisms isolated 07/23/2024 3:24 PM EDT [facility] Bone STRUCTURE OF TOE OF LEFT FOOT / Unknown 07/19/2024 9:51 AM EDT Comment:PERIPHERAL ARTERY DI SEASE Thony Garcia MD MICROBIOLOGY - GENER AL ORDERABLES Performing Organization Address [facility] Co de Phone Number [facility] [place] [address] * Bone Culture (07/19/2024 9:51 AM EDT) Bone Culture No growth 07/23/2024 12:36 PM EDT [facility] Gram Stain No neutrophils seen 07/23/2024 12:36 PM EDT [facility] Gram Stain No microorganisms seen 07/23/2024 12:36 PM EDT [facility] Bone STRUCTURE OF TOE OF LEFT FOOT / Unknown 07/19/2024 9:51 AM EDT Comment:PERIPHERAL ARTERY DI SEASE Thony Garcia MD MICROBIOLOGY - GENER AL ORDERABLES Performing Organization Address [facility] Co de Phone Number [facility] [place] [address] * AFB culture (07/19/2024 9:51 AM EDT) Acid Fast Bacilli Culture No acid fast bacilli isolated at 8 weeks. 09/13/2024 11:02 AM EST [facility] Bone STRUCTURE OF TOE OF LEFT FOOT / Unknown 07/19/2024 9:51 AM EDT 07/19/2024 10:08 AM EDT Comment:PERIPHERAL ARTERY DI SEASE Thony Garcia MD MICROBIOLOGY - GENER AL ORDERABLES Performing Organization Address City/[facility] Co de Phone Number [facility] [place] [address] * Fungus culture (07/19/2024 9:51 AM EDT) Fungus Culture No fungus isolated 08/22/2024 9:08 AM EDT [facility] Bone STRUCTURE OF TOE OF LEFT FOOT / Unknown 07/19/2024 9:51 AM EDT 07/19/2024 10:08 AM EDT Comment:PERIPHERAL ARTERY DI SEASE Thony Garcia MD MICROBIOLOGY - GENER AL ORDERABLES [facility] [place] [address] * Surgical Pathology (07/19/2024 9:49 AM EDT) Case Report Surgical Pathology Report ? Case: [id number] ? Authorizing Provider: ??Thony Garcia MD ?Collected: ? 07/19/2024 0949 ? Ordering Location: ? Main Operating Room [facility] ?? Received: ?07/19/2024 1009 ? [facility] ? Pathologist: ? Benjamin Shen MD ? Specimen: ?Toe(s), Left Foot, LEFT 2ND TOE (PERM) ? 07/26/2024 1:24 PM EDT [facility] Final Diagnosis A - Left second toe; amputated through the proximal phalanx: - Gangrenous necrosis; amputation margin appears uninvolved. - Largely detached nail. 07/26/2024 1:24 PM EDT [facility] Clinical Information PROVIDED: PERIPHERAL ARTERY DISEASE. 07/26/2024 1:24 PM EDT [facility] Gross Description A. Toe(s), Left [...] Sections/Process ing: Blocks submitted for decalcification: A1-A2. Supervisor Scrap Preparation sections in 2 cassettes as follows: A1-A2: Complete longitudinal section of digit cmk 07/26/2024 1:24 PM EDT [facility] Result Note Routine 07/26/2024 1:24 PM T [facility] Tissue STRUCTURE OF TOE OF LEFT FOOT / Unknown 07/19/2024 9:49 AM EDT 07/19/2024 10:09 AM EDT Comment:PERIPHERAL ARTERY DI SEASE Thony Garcia MD PATHOLOGY/CYTOLOGY O GILDA Performing Organization Address [facility]/ZIP Co de Phone Number [facility] [place] [address] * POC, GLUCOSE (07/19/2024 7:21 AM EDT) Glucometer, POC 195 65 - 199 mg/dL 07/19/2024 7:22 AM EDT [facility] Comment:Supplemental ranges: <140 mg/dL before meals <180 mg/dL all other times of the day. Blood CAPILLARY BLOOD / Unknown 07/19/2024 7:21 AM EDT 07/19/2024 7:22 AM EDT Thony Garcia MD POINT OF CARE TEST O GILDA Performing Organization Address [facility] Co de Phone Number [facility] [place] [address] * Heparin (unfractionated) Level (07/19/2024 6:29 AM EDT) UF Heparin 0.42 IU/mL 07/19/2024 6:44 AM EDT [facility] Comment: Heparin (anti-Xa) [...] EDT Thony Garcia MD HEMATOLOGY ORDERABLE S [facility] [place] [address] * POC, GLUCOSE (07/19/2024 4:24 AM EDT) Glucometer, POC 118 65 - 199 mg/dL 07/19/2024 4:24 AM EDT [facility] Comment:Supplemental ranges: <140 mg/dL before meals <180 mg/dL all other times of the day. Blood CAPILLARY BLOOD / Unknown 07/19/2024 4:24 AM EDT 07/19/2024 4:24 AM EDT Thony Garcia MD POINT OF CARE TEST O RDERABLES Performing Organization Address City/[facility]/ZIP Co de Phone Number [facility] [place] [address] * (ABNORMAL) Basic Metabolic Panel (07/19/2024 3:45 AM EDT) Glucose 117 65 - 199 mg/dL 07/19/2024 4:40 AM EDT [facility] Comment:Glucose Concentratio n >=200 mg/dL plus symptoms is consistent with Diabetes Mellitus. Blood Urea Nitrogen 7(L) 10 - 20 mg/dL 07/19/2024 4:40 AM EDT [facility] Creatinine 0.56(L) 0.80 - 1.50 mg/dL 07/19/2024 4:40 AM EDT [facility] Sodium 138 135 - 145 mMol/L 07/19/2024 4:40 AM EDT [facility] Potassium 3.9 3.5 - 5.0 mMol/L 07/19/2024 4:40 AM EDT [facility] Chloride 103 98 - 107 mMol/L 07/19/2024 4:40 AM EDT [facility] Carbon Dioxide 23 22 - 31 mMol/L 07/19/2024 4:40 AM EDT [facility] Anion Gap 12 5 - 15 mMol/L 07/19/2024 4:40 AM EDT [facility] Calcium 9.6 8.5 - 10.5 mg/dL 07/19/2024 4:40 AM EDT [facility] Est Glomerular Filtration Rate - Male 120 mL/min/1. 73 m?? 07/19/2024 4:40 AM EDT [facility] Comment: This patient's estimated [...] AM EDT Thony Garcia MD CHEMISTRY ORDERABLES [facility] [place] [address] * (ABNORMAL) CBC (with Diff) (07/19/2024 3:45 AM EDT) White Blood Cell 12.45(H) 4.00 - 9.50 x10(3)/mc L 07/19/2024 4:09 AM EDT [facility] Red Blood Cell 4.72 4.58 - 5.54 x10(6)/mc L 07/19/2024 4:09 AM EDT [facility] Hemoglobin 13.6(L) 13.7 - 16.5 [...] 3.20 x10(3)/mc L 07/19/2024 4:09 AM EDT [facility] Monocyte % 7.5 % 07/19/2024 4:09 AM EDT [facility] Monocyte Absolute 0.93(H) 0.30 - 0.90 x10(3)/mc L 07/19/2024 4:09 AM EDT [facility] Eos % 1.9 % 07/19/2024 4:09 AM EDT [facility] Eos Absolute 0.24 0.00 - 0.40 x10(3)/mc L 07/19/2024 4:09 AM EDT [facility] Basophil % 0.8 % 07/19/2024 4:09 AM EDT [facility] Baso Absolute 0.10 0.00 - 0.10 x10(3)/mc L 07/19/2024 4:09 AM EDT [facility] Immature Gran % 0.6 % 4:09 AM EDT [facility] Immature Gran Absolute 0.08(H) 0.00 - 0.04 x10(3)/mc L 07/19/2024 4:09 AM EDT [facility] Blood VENOUS BLOOD SPECIMEN / Unknown IP Care Team Draw / Unknown 07/19/2024 3:45 AM EDT 07/19/2024 4:00 AM EDT Thony Garcia MD HEMATOLOGY ORDERABLE S [facility] [place] [address] * Phosphorus (07/19/2024 3:45 AM EDT) Phosphorus 4.3 2.5 - 4.5 mg/dL 07/19/2024 4:40 AM EDT [facility] Blood VENOUS BLOOD SPECIMEN / Unknown IP Care Team Draw / Unknown 07/19/2024 3:45 AM EDT 07/19/2024 4:00 AM EDT Thony Garcia MD CHEMISTRY ORDERABLES Performing Organization Address City/[facility]/ZIP Co de Phone Number [facility] [place] [address] * Magnesium (07/19/2024 3:45 AM EDT) Magnesium 0.89 0.69 - 1.07 mMol/L 07/19/2024 4:40 AM EDT [facility] Blood VENOUS BLOOD SPECIMEN / Unknown IP Care Team Draw / Unknown 07/19/2024 3:45 AM EDT 07/19/2024 4:00 AM EDT Thony Garcia MD CHEMISTRY ORDERABLES Performing Organization Address [facility] Co de Phone Number [facility] [place] [address] * POC, GLUCOSE (07/19/2024 12:01 AM EDT) Glucometer, POC 186 65 - 199 mg/dL 07/19/2024 12:02 AM EDT [facility] Comment:Supplemental ranges: <140 mg/dL before meals <180 mg/dL all other times of the day. Blood CAPILLARY BLOOD / Unknown 07/19/2024 12:01 AM EDT 07/19/2024 12:02 AM EDT Thony Garcia MD POINT OF CARE TEST O RDERABLES Performing Organization Address City/[facility]/ZIP Co de Phone Number [facility] [place] [address] * POC, GLUCOSE (07/18/2024 9:46 PM EDT) Glucometer, POC 185 65 - 199 mg/dL 07/18/2024 9:47 PM EDT [facility] Comment:Supplemental ranges: <140 mg/dL before meals <180 mg/dL all other times of the day. Blood CAPILLARY BLOOD / Unknown 07/18/2024 9:46 PM EDT 07/18/2024 9:47 PM EDT Thony Garcia MD POINT OF CARE TEST O GILDA Performing Organization Address [facility] Co de Phone Number [facility] [place] [address] * POC, GLUCOSE (07/18/2024 3:20 PM EDT) Glucometer, POC 134 65 - 199 mg/dL 07/18/2024 3:20 PM EDT [facility] Comment:Supplemental ranges: <140 mg/dL before meals <180 mg/dL all other times of the day. Blood CAPILLARY BLOOD / Unknown 07/18/2024 3:20 PM EDT 07/18/2024 3:21 PM EDT Thony Garcia MD POINT OF CARE TEST O GILDA Performing Organization Address [facility] Co de Phone Number [facility] [place] [address] * (ABNORMAL) POC, GLUCOSE (07/18/2024 11:53 AM EDT) Glucometer, POC 244(H) 65 - 199 mg/dL 07/18/2024 11:53 AM EDT [facility] Comment:Supplemental ranges: <140 mg/dL before meals <180 mg/dL all other times of the day. Blood CAPILLARY BLOOD / Unknown 07/18/2024 11:53 AM EDT 07/18/2024 11:54 AM EDT Thony Garcia MD POINT OF CARE TEST O GILDA Performing Organization Address City/[facility] Co de Phone Number [facility] [place] [address] * Vancomycin Level, Random (07/18/2024 8:01 AM EDT) Vancomycin, Random 17.2 mg/L 2023 9:40 AM EDT [facility] Comment:This level is for de termination of the patient's vancomycin leev-tkuvu-dof-curve (AUC) value. Contact the inpatient pharmacy for interpretation. Blood VENOUS BLOOD SPECIMEN / Unknown IP Care Team Draw / Unknown 07/18/2024 8:01 AM EDT 07/18/2024 8:39 AM EDT Thony Garcia MD CHEMISTRY ORDERABLES Performing Organization Address [facility] Co de Phone Number [facility] [place] [address] * POC, GLUCOSE (07/18/2024 7:21 AM EDT) Glucometer, POC 177 65 - 199 mg/dL 07/18/2024 7:22 AM EDT [facility] Comment:Supplemental ranges: <140 mg/dL before meals <180 mg/dL all other times of the day. Blood CAPILLARY BLOOD / Unknown 07/18/2024 7:21 AM EDT 07/18/2024 7:22 AM EDT Thony Garcia MD POINT OF CARE TEST O RDERABLES Performing Organization Address [facility] de Phone Number [facility] [place] [address] * Heparin (unfractionated) Level (07/18/2024 3:33 AM EDT) UF Heparin 0.35 IU/mL 07/18/2024 4:42 AM EDT [facility] Comment: Heparin (anti-Xa) [...] EDT Thony Garcia MD HEMATOLOGY ORDERABLE S [facility] [place] [address] * (ABNORMAL) Basic Metabolic Panel (07/18/2024 3:33 AM EDT) Glucose 170 65 - 199 mg/dL 07/18/2024 4:50 AM EDT [facility] Comment:Glucose Concentratio n >=200 mg/dL plus symptoms is consistent with Diabetes Mellitus. Blood Urea Nitrogen 8(L) 10 - 20 mg/dL 07/18/2024 4:50 AM [facility] Creatinine 0.53(L) 0.80 - 1.50 mg/dL 07/18/2024 4:50 AM [facility] Sodium 136 135 - 145 mMol/L 07/18/2024 4:[facility] Potassium 4.3 3.5 - 5.0 mMol/L 07/18/2024 4:50 AM [facility] Chloride 101 98 - 107 mMol/L 07/18/2024 4:50 AM [facility] Carbon Dioxide 23 22 - 31 mMol/L 07/18/2024 4:50 [facility] Anion Gap 12 5 - 15 mMol/L 07/18/2024 4:50 AM [facility] Calcium 9.2 8.5 - 10.5 mg/dL 07/18/2024 4:50 AM EDT [facility] Est Glomerular Filtration Rate - Male 122 mL/min/1. 73 m?? 07/18/2024 4:50 AM EDT [facility] Comment: This patient's estimated [...] AM EDT Thony Garcia MD CHEMISTRY ORDERABLES [facility] [place] [address] * (ABNORMAL) CBC (with Diff) (07/18/2024 3:33 AM EDT) White Blood Cell 11.56(H) 4.00 - 9.50 x10(3)/mc L 07/18/2024 4:26 AM EDT [facility] Red Blood Cell 4.55(L) 4.58 - 5.54 x10(6)/mc L 07/18/2024 4:26 AM EDT [facility] Hemoglobin 13.4(L) 13.7 - 16.5 g/dL 07/18/2024 4:26 AM EDT [facility] Hematocrit 40.2(L) 40.5 - 48.5 % 07/18/2024 4:26 AM EDT [facility] Mean Cell Volume 88.4 82.9 - 93.1 fL 07/18/2024 4:26 AM [facility] Mean Cell Hemoglobin 29.5 [...] % 1.7 % 07/18/2024 4:26 AM EDT [facility] Eos Absolute 0.20 0.00 - 0.40 x10(3)/mc L 07/18/2024 4:26 AM EDT [facility] Basophil % 0.8 % 07/18/2024 4:26 AM EDT [facility] Baso Absolute 0.09 0.00 - 0.10 x10(3)/mc L 07/18/2024 4:26 AM EDT [facility] Immature Gran % 0.6 % 4:26 AM EDT [facility] Immature Gran Absolute 0.07(H) 0.00 - 0.04 x10(3)/mc L 07/18/2024 4:26 AM EDT [facility] Blood VENOUS BLOOD SPECIMEN / Unknown IP Care Team Draw / Unknown 07/18/2024 3:33 AM EDT 07/18/2024 4:21 AM EDT Thony Garcia MD HEMATOLOGY ORDERABLE S [facility] [place] [address] * Phosphorus (07/18/2024 3:33 AM EDT) Phosphorus 3.7 2.5 - 4.5 mg/dL 07/18/2024 4:50 AM EDT [facility] Blood VENOUS BLOOD SPECIMEN / Unknown IP Care Team Draw / Unknown 07/18/2024 3:33 AM EDT 07/18/2024 4:21 AM EDT Thony Garcia MD CHEMISTRY ORDERABLES [facility] [place] [address] * Magnesium (07/18/2024 3:33 AM EDT) Magnesium 0.88 0.69 - 1.07 mMol/L 07/18/2024 4:50 AM EDT [facility] Blood VENOUS BLOOD SPECIMEN / Unknown IP Care Team Draw / Unknown 07/18/2024 3:33 AM EDT 07/18/2024 4:21 AM EDT Thony Garcia MD CHEMISTRY ORDERABLES Performing Organization Address [facility] Co de Phone Number [facility] [place] [address] * LDL Cholesterol, Direct (07/18/2024 3:33 AM EDT) LDL Cholesterol, Direct 65 mg/dL 07/18/2024 4:50 AM EDT [facility] Comment: Desirable: <100 mg/dL Above [...] Garcia MD CHEMISTRY ORDERABLES Performing Organization Address [facility] Co de Phone Number [facility] [place] [address] * HDL/Cholesterol Profile (07/18/2024 3:33 AM EDT) Cholesterol, Total 114 mg/dL 07/18/2024 4:50 AM [facility] Comment: Desirable: < 200 mg/dL Borderline High: 200 - 239 mg/dL High: > or = 240 mg/dL HDL Cholesterol 38 mg/dL 4:50 AM [facility] Comment:Males: High Risk: <4 0 mg/dL Non-HDL Cholesterol 76 mg/dL 07/18/2024 4:50 AM [facility] Comment: Desirable: <130 mg/dL Above Desirable: 130-159 mg/dL Borderline High: 160-189 mg/dL High: 190-219 mg/dL Very High: > or = 220 mg/dL Blood VENOUS BLOOD SPECIMEN / Unknown IP Care Team Draw / Unknown 07/18/2024 3:33 AM EDT 07/18/2024 4:21 AM EDT [facility] - 07/18/2024 4:50 AM EDT [...] ACC/AHA Guidelines (most recently Johann et [facility] 08/11/22): * For individuals with atherosclerotic cardiovascular [...] Garcia MD CHEMISTRY ORDERABLES Performing Organization Address [facility] Co de Phone Number [facility] [place] [address] * (ABNORMAL) POC, GLUCOSE (07/18/2024 3:21 AM EDT) Glucometer, POC 200(H) 65 - 199 mg/dL 07/18/2024 3:22 AM EDT [facility] Comment:Supplemental ranges: <140 mg/dL before meals <180 mg/dL all other times of the day. Blood CAPILLARY BLOOD / Unknown 07/18/2024 3:21 AM EDT 07/18/2024 3:22 AM EDT Thony Garcia MD POINT OF CARE TEST O RDERABLES Performing Organization Address [facility]/ZIP Co de Phone Number [facility] [place] [address] * (ABNORMAL) POC, GLUCOSE (07/18/2024 12:44 AM EDT) Glucometer, POC 216(H) 65 - 199 mg/dL 07/18/2024 12:44 AM EDT [facility] Comment:Supplemental ranges: <140 mg/dL before meals <180 mg/dL all other times of the day. Blood CAPILLARY BLOOD / Unknown 07/18/2024 12:44 AM EDT 07/18/2024 12:44 AM EDT Thony Garcia MD POINT OF CARE TEST O GILDA Performing Organization Address [facility] Co de Phone Number [facility] [place] [address] * (ABNORMAL) POC, GLUCOSE (07/17/2024 9:02 PM EDT) Glucometer, POC 294(H) 65 - 199 mg/dL 07/17/2024 9:02 PM EDT [facility] Comment:Supplemental ranges: <140 mg/dL before meals <180 mg/dL all other times of the day. Blood CAPILLARY BLOOD / Unknown 07/17/2024 9:02 PM EDT 07/17/2024 9:03 PM EDT Thony Garcia MD POINT OF CARE TEST O GILDA Performing Organization Address [facility] Phone Number [facility] [place] [address] * (ABNORMAL) POC, GLUCOSE (07/17/2024 4:07 PM EDT) Glucometer, POC 219(H) 65 - 199 mg/dL 07/17/2024 4:07 PM EDT [facility] Comment:Supplemental ranges: <140 mg/dL before meals <180 mg/dL all other times of the day. Blood CAPILLARY BLOOD / Unknown 07/17/2024 4:07 PM EDT 07/17/2024 4:07 PM EDT Thony Garcia MD POINT OF CARE TEST O GILDA Performing Organization Address [facility] Co de Phone Number [facility] [place] [address] * (ABNORMAL) POC, GLUCOSE (07/17/2024 11:31 AM EDT) Glucometer, POC 255(H) 65 - 199 mg/dL 07/17/2024 11:32 AM EDT [facility] Comment:Supplemental ranges: <140 mg/dL before meals <180 mg/dL all other times of the day. Blood CAPILLARY BLOOD / Unknown 07/17/2024 11:31 AM EDT 07/17/2024 11:32 AM EDT Thony Garcia MD POINT OF CARE TEST O GILDA Performing Organization Address [facility] Co de Phone Number [facility] [place] [address] * POC, GLUCOSE (07/17/2024 7:38 AM EDT) Glucometer, POC 112 65 - 199 mg/dL 07/17/2024 7:38 AM EDT [facility] Comment:Supplemental ranges: <140 mg/dL before meals <180 mg/dL all other times of the day. Blood CAPILLARY BLOOD / Unknown 07/17/2024 7:38 AM EDT 07/17/2024 7:38 AM EDT Thony Garcia MD POINT OF CARE TEST O GILDA Performing Organization Address City/[facility]/ZIP Co de Phone Number [facility] [place] [address] * ELEN, legs, multiple levels (07/17/2024 6:31 AM EDT) VB Text Report Department: Vascular Surgery Lab Patient: [id number] (GEOVANNA DIXON) CPT: 38697 Referring Physician: VIBHA TIERNEY ?? Indications: PAD [...] ? Dorsalis Pedis (Ankle) Artery ?83 ?0.55 ??[place]-Biphasic ? Posterior Tibial (Ankle) Artery ??87 ?0.57 [...] 0.57 ? 0.38(+.14) ---- Electronically Signed by: EHRMILA VÁSQUEZ on 2024-07-17 05:20:51 PM [facility] VB Text Report End of Report [facility] 07/17/2024 6:31 AM EDT Vibha Tierney APRN VASCULAR ORDERABLE S [facility] * (ABNORMAL) POC, GLUCOSE (07/17/2024 4:12 AM EDT) Glucometer, POC 205(H) 65 - 199 mg/dL 07/17/2024 4:12 AM EDT [facility] Comment:Supplemental ranges: <140 mg/dL before meals <180 mg/dL all other times of the day. Blood CAPILLARY BLOOD / Unknown 07/17/2024 4:12 AM EDT 07/17/2024 4:12 AM EDT Thony Garcia MD POINT OF CARE TEST O RDERABLES Performing Organization Address [facility] Co de Phone Number [facility] [place] [address] * Heparin (unfractionated) Level (07/17/2024 3:42 AM EDT) UF Heparin 0.42 IU/mL 07/17/2024 4:38 AM EDT [facility] Comment: Heparin (anti-Xa) [...] MD HEMATOLOGY ORDERABLE S Performing Organization Address City/[facility]/ZIP Co de Phone Number [facility] [place] [address] * Phosphorus (07/17/2024 3:42 AM EDT) Phosphorus 3.6 2.5 - 4.5 mg/dL 07/17/2024 4:47 AM EDT [facility] Blood VENOUS BLOOD SPECIMEN / Unknown IP Care Team Draw / Unknown 07/17/2024 3:42 AM EDT 07/17/2024 4:15 AM EDT Thony Garcia MD CHEMISTRY ORDERABLES Performing Organization Address City/[facility]/ZIP Co de Phone Number [facility] [place] [address] * Magnesium (07/17/2024 3:42 AM EDT) Magnesium 0.78 0.69 - 1.07 mMol/L 07/17/2024 4:47 AM EDT [facility] Blood VENOUS BLOOD SPECIMEN / Unknown IP Care Team Draw / Unknown 07/17/2024 3:42 AM EDT 07/17/2024 4:15 AM EDT Thony Garcia MD CHEMISTRY ORDERABLES Performing Organization Address [facility] Co de Phone Number [facility] [place] [address] * (ABNORMAL) Basic Metabolic Panel (07/17/2024 3:42 AM EDT) Glucose 225(H) 65 - 199 mg/dL 07/17/2024 4:47 AM EDT [facility] Comment:Glucose Concentratio n >=200 mg/dL plus symptoms is consistent with Diabetes Mellitus. Blood Urea Nitrogen 9(L) 10 - 20 mg/dL 07/17/2024 4:47 AM EDT [facility] Creatinine 0.49(L) 0.80 - 1.50 mg/dL 07/17/2024 4:47 AM EDT [facility] Sodium 135 135 - 145 mMol/L 07/17/2024 4:47 AM EDT [facility] Potassium 3.7 3.5 - 5.0 mMol/L 07/17/2024 4:47 AM EDT [facility] Chloride 103 98 - 107 mMol/L 07/17/2024 4:47 AM EDT [facility] Carbon Dioxide 21(L) 22 - 31 mMol/L 07/17/2024 4:47 AM EDT [facility] Anion Gap 11 5 - 15 mMol/L 07/17/2024 4:47 AM EDT [facility] Calcium 9.1 8.5 - 10.5 mg/dL 07/17/2024 4:47 AM EDT [facility] Est Glomerular Filtration Rate - Male 125 mL/min/1. 73 m?? 07/17/2024 4:47 AM EDT [facility] Comment: This patient's estimated [...] AM EDT Thony Garcia MD CHEMISTRY ORDERABLES [facility] [place] [address] * (ABNORMAL) CBC (with Diff) (07/17/2024 3:42 AM EDT) White Blood Cell 11.02(H) 4.00 - 9.50 x10(3)/mc L 07/17/2024 4:21 AM EDT [facility] Red Blood Cell 4.43(L) 4.58 - 5.54 x10(6)/mc L 07/17/2024 4:21 AM EDT [facility] Hemoglobin 13.1(L) 13.7 - 16.5 g/dL 07/17/2024 4:21 AM EDT [facility] Hematocrit 38.8(L) 40.5 - 48.5 % 07/17/2024 4:21 AM [facility] Mean Cell Volume 87.6 [...] 0.90 x10(3)/mc L 07/17/2024 4:21 AM EDT [facility] Eos % 1.6 % 07/17/2024 4:21 AM EDT [facility] Eos Absolute 0.18 0.00 - 0.40 x10(3)/mc L 07/17/2024 4:21 AM EDT [facility] Basophil % 0.5 % 07/17/2024 4:21 AM EDT [facility] Baso Absolute 0.05 0.00 - 0.10 x10(3)/mc L 07/17/2024 4:21 AM EDT [facility] Immature Gran % 0.6 % 4:21 AM EDT [facility] Immature Gran Absolute 0.07(H) 0.00 - 0.04 x10(3)/mc L 07/17/2024 4:21 AM EDT [facility] Blood VENOUS BLOOD SPECIMEN / Unknown IP Care Team Draw / Unknown 07/17/2024 3:42 AM EDT 07/17/2024 4:15 AM EDT Thony Garcia MD HEMATOLOGY ORDERABLE S [facility] [place] [address] * (ABNORMAL) POC, GLUCOSE (07/17/2024 2:25 AM EDT) [facility] Signature Glucometer, POC 262(H) 65 - 199 mg/dL 07/17/2024 2:25 AM EDT [facility] Comment:Supplemental ranges: <140 mg/dL before meals <180 mg/dL all other times of the day. Blood CAPILLARY BLOOD / Unknown 07/17/2024 2:25 AM EDT 07/17/2024 2:25 AM EDT Thony Garcia MD POINT OF CARE TEST O RDERABLES [facility] [place] [address] * (ABNORMAL) POC, GLUCOSE (07/17/2024 12:19 AM EDT) Glucometer, POC 262(H) 65 - 199 mg/dL 07/17/2024 12:19 AM EDT [facility] Comment:Supplemental ranges: <140 mg/dL before meals <180 mg/dL all other times of the day. Blood CAPILLARY BLOOD / Unknown 07/17/2024 12:19 AM EDT 07/17/2024 12:20 AM EDT Thony Garcia MD POINT OF CARE TEST O RDERABLES Performing Organization Address City/[facility]/ZIP Co de Phone Number [facility] [place] [address] * (ABNORMAL) POC, GLUCOSE (07/16/2024 8:22 PM EDT) Glucometer, POC 217(H) 65 - 199 mg/dL 07/16/2024 8:23 PM EDT [facility] Comment:Supplemental ranges: <140 mg/dL before meals <180 mg/dL all other times of the day. Blood CAPILLARY BLOOD / Unknown 07/16/2024 8:22 PM EDT 07/16/2024 8:23 PM EDT Thony Garcia MD POINT OF CARE TEST O RDERABLES [facility] [place] [address] * POC, GLUCOSE (07/16/2024 3:47 PM EDT) Glucometer, POC 184 65 - 199 mg/dL 07/16/2024 3:47 PM EDT [facility] Comment:Supplemental ranges: <140 mg/dL before meals <180 mg/dL all other times of the day. Blood CAPILLARY BLOOD / Unknown 07/16/2024 3:47 PM EDT 07/16/2024 3:48 PM EDT Thony Garcia MD POINT OF CARE TEST O RDERABLES Performing Organization Address [facility] Co de Phone Number [facility] [place] [address] * Heparin (unfractionated) Level (07/16/2024 3:39 PM EDT) UF Heparin 0.47 IU/mL 07/16/2024 4:24 PM EDT [facility] Comment: Heparin (anti-Xa) [...] MD HEMATOLOGY ORDERABLE S Performing Organization Address City/[facility]/ZIP Co de Phone Number [facility] [place] [address] * Potassium (07/16/2024 3:39 PM EDT) Potassium 3.9 3.5 - 5.0 mMol/L 07/16/2024 4:15 PM EDT [facility] Blood VENOUS BLOOD SPECIMEN / Unknown IP Care Team Draw / Unknown 07/16/2024 3:39 PM EDT 07/16/2024 3:47 PM EDT Hermila White RESHMA CHEMISTRY ORDERABL ES Performing Organization Address [facility] Co de Phone Number [facility] [place] [address] * MRSA PCR Screen (07/16/2024 2:07 PM EDT) [facility] MRSA PCR Not Detected 07/17/2024 6:04 PM EDT [facility] Swab BOTH ANTERIOR NARES / Unknown Non Blood Collection / Unknown 07/16/2024 2:07 PM EDT 07/16/2024 2:13 PM EDT Narrative [facility] - 07/17/2024 6:04 PM EDT This test was performed using the Xpert MRSA NxG test kit and is run on the [employer] GeneXpert Dx System. This test is cleared by the U.S. Food and Drug Administration for clinical use and its performance characteristics have been verified by the [facility]. This test was performed using the Xpert MRSA NxG test kit and is run on the [employer] GeneXpert Dx System. This test is cleared by the U.S. Food and Drug Administration for clinical use and its performance characteristics have been verified by the [facility] at [facility]. Hermilajean claude White RESHMA MOLECULAR ORDERABL ES Performing Organization Address City/[facility] Co de Phone Number [facility] [place] [address] * POC, GLUCOSE (07/16/2024 1:33 PM EDT) Pathologist [facility] Glucometer, POC [phone] 199 mg/dL 07/16/2024 1:33 PM EDT [facility] Comment:Supplemental ranges: <140 mg/dL before meals <180 mg/dL all other times of the day. Blood CAPILLARY BLOOD / Unknown 07/16/2024 1:33 PM EDT 07/16/2024 1:33 PM EDT Thony Garcia MD POINT OF CARE TEST Stephanie VO Performing Organization Address [facility] Co de Phone Number [facility] [place] [address] * (ABNORMAL) POC, GLUCOSE (07/16/2024 11:41 AM EDT) Glucometer, POC 259(H) 65 - 199 mg/dL 07/16/2024 11:41 AM EDT [facility] Comment:Supplemental ranges: <140 mg/dL before meals <180 mg/dL all other times of the day. Blood CAPILLARY BLOOD / Unknown 07/16/2024 11:41 AM EDT 07/16/2024 11:41 AM EDT Thony Garcia MD POINT OF CARE TEST Stephanie VO Performing Organization Address [facility] Co de Phone Number [facility] [place] [address] * Heparin (unfractionated) Level (07/16/2024 9:41 AM EDT) [facility] UF Heparin 0.60 IU/mL 07/16/2024 9:54 AM EDT [facility] Comment: Heparin (anti-Xa) [...] HEMATOLOGY ORDERABLE S Performing Organization Address [facility] Co de Phone Number [facility] [place] [address] * (ABNORMAL) POC, GLUCOSE (07/16/2024 7:10 AM EDT) Glucometer, POC 205(H) 65 - 199 mg/dL 07/16/2024 7:11 AM EDT [facility] Comment:Supplemental ranges: <140 mg/dL before meals <180 mg/dL all other times of the day. Blood CAPILLARY BLOOD / Unknown 07/16/2024 7:10 AM EDT 07/16/2024 7:11 AM EDT Thony Garcia MD POINT OF CARE TEST O RDERABLES Performing Organization Address [facility] Co de Phone Number [facility] [place] [address] * (ABNORMAL) Potassium (07/16/2024 4:15 AM EDT) Potassium 3.2(L) 3.5 - 5.0 mMol/L 07/16/2024 4:53 AM EDT [facility] Blood VENOUS BLOOD SPECIMEN / Unknown IP Care Team Draw / Unknown 07/16/2024 4:15 AM EDT 07/16/2024 4:23 AM EDT Thony Garcia MD CHEMISTRY ORDERABLES Performing Organization Address [facility] Co de Phone Number [facility] [place] [address] * Phosphorus (07/16/2024 4:15 AM EDT) Phosphorus 3.7 2.5 - 4.5 mg/dL 07/16/2024 4:53 AM EDT [facility] Blood VENOUS BLOOD SPECIMEN / Unknown IP Care Team Draw / Unknown 07/16/2024 4:15 AM EDT 07/16/2024 4:23 AM EDT Thony Garcia MD CHEMISTRY ORDERABLES Performing Organization Address City/[facility]/ZIP Co de Phone Number [facility] [place] [address] * POC, GLUCOSE (07/16/2024 4:14 AM EDT) Glucometer, POC 187 65 - 199 mg/dL 07/16/2024 4:17 AM EDT [facility] Comment:Supplemental ranges: <140 mg/dL before meals <180 mg/dL all other times of the day. Blood CAPILLARY BLOOD / Unknown 07/16/2024 4:14 AM EDT 07/16/2024 4:17 AM EDT Thony Garcia MD POINT OF CARE TEST O RDERABLES Performing Organization Address City/[facility]/ZIP Co de Phone Number [facility] [place] [address] * (ABNORMAL) POC, GLUCOSE (07/16/2024 2:07 AM EDT) Glucometer, POC 254(H) 65 - 199 mg/dL 07/16/2024 2:08 AM EDT [facility] Comment:Supplemental ranges: <140 mg/dL before meals <180 mg/dL all other times of the day. Blood CAPILLARY BLOOD / Unknown 07/16/2024 2:07 AM EDT 07/16/2024 2:08 AM EDT Thony Garcia MD POINT OF CARE TEST O RDERABLES Performing Organization Address City/[facility]/ZIP Co de Phone Number [facility] [place] [address] * Heparin (unfractionated) Level (07/16/2024 2:07 AM EDT) UF Heparin 0.72 IU/mL 07/16/2024 2:36 AM EDT [facility] Comment: Heparin (anti-Xa) [...] MD HEMATOLOGY ORDERABLE S Performing Organization Address City/[facility]/ZIP Co de Phone Number [facility] [place] [address] * Magnesium (07/16/2024 2:07 AM EDT) Pathologist [facility] Magnesium 0.83 0.69 - 1.07 mMol/L 07/16/2024 2:47 AM EDT [facility] Blood VENOUS BLOOD SPECIMEN / Unknown IP Care Team Draw / Unknown 07/16/2024 2:07 AM EDT 07/16/2024 2:14 AM EDT Thony Garcia MD CHEMISTRY ORDERABLES Performing Organization Address City/[facility]/ZIP Co de Phone Number [facility] [place] [address] * (ABNORMAL) Basic Metabolic Panel (07/16/2024 2:07 [...] AM EDT Thony Garcia MD CHEMISTRY ORDERABLES [facility] [place] [address] * (ABNORMAL) CBC (with Diff) (07/16/2024 2:07 AM EDT) White Blood Cell 11.08(H) 4.00 - 9.50 x10(3)/mc L 07/16/2024 2:23 AM EDT [facility] Red Blood Cell 4.29(L) 4.58 - 5.54 x10(6)/mc L 07/16/2024 2:23 AM EDT [facility] Hemoglobin 12.7(L) 13.7 - 16.5 g/dL 07/16/2024 2:23 AM EDT [facility] Hematocrit 36.6(L) 40.5 - 48.5 % 07/16/2024 2:23 AM EDT [facility] Mean Cell Volume 85.3 82.9 - 93.1 fL 07/16/2024 2:23 AM EDT [facility] Mean Cell Hemoglobin 29.6 27.5 - 32.1 pg 07/16/2024 2:23 AM EDT [facility] Mean Cell Hemoglobin Concentration 34.7 32.0 - 35.7 g/dL 07/16/2024 2:23 AM EDT [facility] Platelet 363(H) 145 - 357 x10(3)/mc L 07/16/2024 2:23 AM EDT [facility] Mean Platelet Volume 10.3 7.6 - 12.9 fL 07/16/2024 2:23 AM EDT [facility] RDW Standard Deviation 39.2 36.0 - 45.0 fL 07/16/2024 2:[facility] coefficient of variation 12.7 11.4 - 13.8 % 07/16/2024 2:23 AM [facility] [...] HEMATOLOGY ORDERABLE S Performing Organization Address [facility]/ZIP Co de Phone Number [facility] [place] [address] * (ABNORMAL) POC, GLUCOSE (07/16/2024 12:04 AM EDT) Glucometer, POC 324(H) 65 - 199 mg/dL 07/16/2024 12:05 AM EDT [facility] Comment:Supplemental ranges: <140 mg/dL before meals <180 mg/dL all other times of the day. Blood CAPILLARY BLOOD / Unknown 07/16/2024 12:04 AM EDT 07/16/2024 12:05 AM EDT Thony Garcia MD POINT OF CARE TEST O RDERAHERNANDEZ Performing Organization Address [facility]/ZIP Co de Phone Number [facility] [place] [address] * (ABNORMAL) POC, GLUCOSE (07/15/2024 8:36 PM EDT) Glucometer, POC 274(H) 65 - 199 mg/dL 07/15/2024 8:36 PM EDT [facility] Comment:Supplemental ranges: <140 mg/dL before meals <180 mg/dL all other times of the day. Blood CAPILLARY BLOOD / Unknown 07/15/2024 8:36 PM EDT 07/15/2024 8:36 PM EDT Thony Garcia MD POINT OF CARE TEST O GILDA Performing Organization Address City/[facility]/ZIP Co de Phone Number [facility] [place] [address] * Heparin (unfractionated) Level (07/15/2024 8:21 PM EDT) UF Heparin 0.55 IU/mL 07/15/2024 8:42 PM EDT [facility] Comment: Heparin (anti-Xa) [...] HEMATOLOGY ORDERABLE S Performing Organization Address [facility] Co de Phone Number [facility] [place] [address] * (ABNORMAL) POC, GLUCOSE (07/15/2024 4:41 PM EDT) Pathologist [facility] Glucometer, POC 275(H) 65 - 199 mg/dL 07/15/2024 4:42 PM EDT [facility] Comment:Supplemental ranges: <140 mg/dL before meals <180 mg/dL all other times of the day. Blood CAPILLARY BLOOD / Unknown 07/15/2024 4:41 PM EDT 07/15/2024 4:42 PM EDT Thony Garcia MD POINT OF CARE TEST O RDERABLES Performing Organization Address [facility]/ZIP Co de Phone Number [facility] [place] [address] * (ABNORMAL) Vancomycin, trough (07/15/2024 2:19 PM EDT) Vancomycin, Trough 9.7(L) 10.0 - 20.0 mg/L 07/15/2024 3:28 PM EDT [facility] Comment: Varies according to infection source. Blood VENOUS BLOOD SPECIMEN / Unknown IP Care Team Draw / Unknown 07/15/2024 2:19 PM EDT 07/15/2024 3:00 PM EDT Thony Garcia MD CHEMISTRY ORDERABLES Performing Organization Address [facility] Co de Phone Number [facility] [place] [address] * (ABNORMAL) POC, GLUCOSE (07/15/2024 1:16 PM EDT) Glucometer, POC 223(H) 65 - 199 mg/dL 07/15/2024 1:17 PM EDT [facility] Comment:Supplemental ranges: <140 mg/dL before meals <180 mg/dL all other times of the day. Blood CAPILLARY BLOOD / Unknown 07/15/2024 1:16 PM EDT 07/15/2024 1:18 PM EDT Thony Garcia MD POINT OF CARE TEST O RDERABLES Performing Organization Address City/[facility]/ZIP Co de Phone Number [facility] [place] [address] * POC, GLUCOSE (07/15/2024 8:34 AM EDT) Glucometer, POC 133 65 - 199 mg/dL 07/15/2024 8:35 AM EDT [facility] Comment:Supplemental ranges: <140 mg/dL before meals <180 mg/dL all other times of the day. Blood CAPILLARY BLOOD / Unknown 07/15/2024 8:34 AM EDT 07/15/2024 8:35 AM EDT Thony Garcia MD POINT OF CARE TEST O RDERABLES [facility] [place] [address] * (ABNORMAL) POC, GLUCOSE (07/15/2024 4:44 AM EDT) Glucometer, POC 224(H) 65 - 199 mg/dL 07/15/2024 4:44 AM EDT [facility] Comment:Supplemental ranges: <140 mg/dL before meals <180 mg/dL all other times of the day. Blood CAPILLARY BLOOD / Unknown 07/15/2024 4:44 AM EDT 07/15/2024 4:44 AM EDT Thony Garcia MD POINT OF CARE TEST O RDERABLES Performing Organization Address [facility]/ZIP Co de Phone Number [facility] [place] [address] * (ABNORMAL) POC, GLUCOSE (07/15/2024 2:48 AM EDT) Glucometer, POC 281(H) 65 - 199 mg/dL 07/15/2024 2:48 AM EDT [facility] Comment:Supplemental ranges: <140 mg/dL before meals <180 mg/dL all other times of the day. Blood CAPILLARY BLOOD / Unknown 07/15/2024 2:48 AM EDT 07/15/2024 2:48 AM EDT Thony Garcia MD POINT OF CARE TEST O RDERABLES [facility] [place] [address] * (ABNORMAL) Basic Metabolic Panel (07/15/2024 12:45 AM EDT) Glucose 309(H) 65 - 199 mg/dL 07/15/2024 1:28 AM EDT [facility] Comment:Glucose Concentratio n >=200 [...] AM EDT Thony Garcia MD CHEMISTRY ORDERABLES [facility] [place] [address] * (ABNORMAL) CBC (with Diff) (07/15/2024 12:45 AM EDT) White Blood Cell 11.70(H) 4.00 - 9.50 x10(3)/mc L 07/15/2024 1:05 AM EDT [facility] Red Blood Cell 4.13(L) 4.58 - 5.54 x10(6)/mc L 07/15/2024 1:05 AM EDT [facility] Hemoglobin 12.1(L) 13.7 - 16.5 g/dL 07/15/2024 1:05 AM [facility] Hematocrit 35.7(L) 40.5 - 48.5 % 07/15/2024 1:05 AM [facility] Mean Cell Volume 86.4 82.9 - 93.1 fL 07/15/2024 1:05 AM [facility] Mean Cell Hemoglobin 29.3 27.5 - 32.1 pg 07/15/2024 1:05 AM [facility] Mean Cell Hemoglobin Concentration 33.9 32.0 - 35.7 g/dL 07/15/2024 1:05 AM [facility] Platelet 322 145 - 357 x10(3)/mc L 07/15/2024 1:05 AM [facility] Mean Platelet Volume 9.9 7.6 - 12.9 fL 07/15/2024 1:05 AM [facility] RDW Standard Deviation 40.2 36.0 - 45.0 fL 07/15/2024 1:05 AM [facility] RDW coefficient of variation 12.9 11.4 - 13.8 % 07/15/2024 1:05 AM [facility] NRBC% auto 0.0 % 07/15/2024 1:05 AM [facility] NRBC Absolute 0.00 0.00 - 0.00 x10(3)/mc L 07/15/2024 1:05 AM EDT [facility] Neutrophil % 74.9 % 07/15/2024 1:05 AM [facility] Neutrophil Absolute (ANC) - Automated 8.75(H) 1.70 - 6.10 x10(3)/mc L 07/15/2024 1:05 AM EDT [facility] Lymph % 16.3 % 07/15/2024 1:05 AM EDT [facility] Lymph Absolute 1.91 0.90 - 3.20 x10(3)/mc L 07/15/2024 1:05 AM EDT [facility] Monocyte % 6.6 % 07/15/2024 1:05 AM [facility] Monocyte Absolute 0.77 0.30 - 0.90 x10(3)/mc L 07/15/2024 1:05 AM EDT [facility] Eos % 1.5 % 07/15/2024 1:05 AM EDT [facility] Eos Absolute 0.18 0.00 - 0.40 x10(3)/mc L 07/15/2024 1:05 AM EDT [facility] Basophil % 0.3 % 07/15/2024 1:05 AM EDT [facility] Baso Absolute 0.04 0.00 - 0.10 x10(3)/mc L 07/15/2024 1:05 AM EDT [facility] Immature Gran % 0.4 % 1:05 AM [facility] Immature Gran Absolute 0.05(H) 0.00 - 0.04 x10(3)/mc L 07/15/2024 1:05 AM [facility] Blood VENOUS BLOOD SPECIMEN / Unknown IP Care Team Draw / Unknown 07/15/2024 12:45 AM EDT 07/15/2024 1:00 AM EDT Thony Garcia MD HEMATOLOGY ORDERABLE S [facility] [place] [address] * (ABNORMAL) POC, GLUCOSE (07/15/2024 12:29 AM EDT) Glucometer, POC 394(H) 65 - 199 mg/dL 07/15/2024 12:30 AM EDT [facility] Comment:Supplemental ranges: <140 mg/dL before meals <180 mg/dL all other times of the day. Blood CAPILLARY BLOOD / Unknown 07/15/2024 12:29 AM EDT 07/15/2024 12:30 AM EDT Thony Garcia MD POINT OF CARE TEST O RDERABLES Performing Organization Address City/[facility]/ZIP Co de Phone Number [facility] [place] [address] * CT Angiogram Aortic Lower Extremity Runoff (07/14/2024 11:57 PM EDT) WORKSTATION ID [id number] RAD Anatomical Region Laterality Modality Abdomen Computed [...] who have questions please contact the health director of career resources that requested your imaging first. ? Electronically signed by: Geovanna Ray MD, [facility] ??([phone]), at 07/15/2024 1:13 AM Narrative 07/15/2024 1:13 [...] 2.6 cm vessel length at and just [id number], similar to prior. Anterior tibial artery: No [...] the intravenous administration of contrast. 149 cc [id number]. Maximum intensity projection (MIP) were reformatted. 3-D [...] 2.6 cm vessel length at and just [id number], similar toprior. Anterior tibial artery: No stenosis. [...] patients who have questions please contactthe health director of career resources that requested your imaging first. Thony Garcia MD IMG CT ORDERABLES * XR Foot Min 3 views Left (Generic) (07/14/2024 9:11 PM EDT) WORKSTATION ID [id number] RAD Anatomical Region Laterality Modality Foot Left [...] who have questions please contact the health director of career resources that requested your imaging first. ? Electronically signed by: Geovanna Ray MD, [facility] ??([phone]), at 07/14/2024 10:26 PM Narrative 07/14/2024 10:26 [...] patients who have questions please contactthe health director of career resources that requested your imaging first. Electronically signed by: Geovanna Ray MD, [facility]([phone]), at 07/14/2024 10:26 PM Arthur Patel DO IMG DX ORDERABLES * Lactate Whole Blood POC (07/14/2024 7:41 PM EDT) Pathologist [facility] Lactate, Whole Blood 1.1 0.5 - 2.2 mmol/L 07/14/2024 7:42 PM EDT [facility] Blood ARTERIAL BLOOD / Unknown 07/14/2024 7:41 PM EDT 07/14/2024 7:42 PM EDT Unknown POINT OF CARE TEST O RDERABLES [facility] [place] [address] * (ABNORMAL) Basic Metabolic Panel (07/14/2024 7:39 PM EDT) Pathologist [facility] Glucose 341(H) 65 - 199 mg/dL 07/14/2024 8:13 PM EDT [facility] Comment:Glucose Concentratio n >=200 mg/dL plus symptoms is consistent with Diabetes Mellitus. Blood Urea Nitrogen 6(L) 10 - 20 mg/dL 07/14/2024 8:13 PM EDT [facility] Creatinine 0.53(L) 0.80 - 1.50 mg/dL 07/14/2024 8:13 PM EDT [facility] Sodium 137 135 - 145 mMol/L 07/14/2024 8:13 PM EDT [facility] Potassium 3.7 3.5 - 5.0 mMol/L 07/14/2024 8:13 PM EDT [facility] Chloride 101 98 - 107 mMol/L 07/14/2024 8:13 PM EDT [facility] Carbon Dioxide 23 22 - 31 mMol/L 07/14/2024 8:13 PM EDT [facility] Anion Gap 13 5 - 15 mMol/L 07/14/2024 8:13 PM EDT [facility] Calcium 8.6 8.5 - 10.5 mg/dL 07/14/2024 8:13 PM EDT [facility] Est Glomerular Filtration Rate - Male 122 mL/min/1. 73 m?? 07/14/2024 8:13 PM EDT [facility] Comment: This patient's estimated [...] Patel DO CHEMISTRY ORDERABLES Performing Organization Address City/State/[facility] Co de Phone Number [facility] [place] [address] * (ABNORMAL) CBC (with Diff) (07/14/2024 7:39 PM EDT) White Blood Cell 8.69 4.00 - 9.50 x10(3)/mc L 07/14/2024 7:50 PM EDT [facility] Red Blood Cell 4.01(L) 4.58 - 5.54 x10(6)/mc L 07/14/2024 7:50 PM EDT [facility] Hemoglobin 11.7(L) 13.7 - 16.5 g/dL 07/14/2024 7:50 PM EDT [facility] Hematocrit 34.5(L) 40.5 - 48.5 % 07/14/2024 7:50 PM EDT [facility] Mean Cell Volume 86.0 82.9 - 93.1 fL 07/14/2024 7:50 PM EDT [facility] Mean Cell Hemoglobin 29.2 27.5 - 32.1 pg 07/14/2024 7:50 PM [facility] [...] 0.40 x10(3)/mc L 07/14/2024 7:50 PM EDT [facility] Basophil % 0.3 % 07/14/2024 7:50 PM EDT [facility] Baso Absolute 0.03 0.00 - 0.10 x10(3)/mc L 07/14/2024 7:50 PM EDT [facility] Immature Gran % 0.5 % 7:50 PM EDT [facility] Immature Gran Absolute 0.04 0.00 - 0.04 x10(3)/mc L 07/14/2024 7:50 PM EDT [facility] Blood VENOUS BLOOD SPECIMEN / Unknown Venipuncture / Unknown 07/14/2024 7:39 PM EDT 07/14/2024 7:46 PM EDT Arthur Patel DO HEMATOLOGY ORDERABLE S [facility] [place] [address] documented in this encounter Visit Diagnoses Not [...] over 4 Hours, Warning Vesicant/Irritant Medication Per quality assurance practice manager labeling, do not administer or Y-site with [...] DAVID) 0951 (Given - Provider: Nava Huggins, DAVID) atorvastatin (Lipitor) tablet 80 mg 80 mg, Oral, EVERY EVENING, First dose on Wed07/14/24 at 2225, Until Discontinued, Routine 0857 (JAN Hold - Provider: Admin Adt - Reason: Transfer to a Procedural area)1206 (JAN Unhold - Provider: Admin Adt)1725 (Given - Provider: Gavin Rudd RN) 1613 (Given - Provider: Jaja Diallo, DAVID) 1714 (Given - Provider: Nava Huggins, RN) ceFAZolin (Ancef) 2 g vial attach [...] Adt)2007 (Given - Provider: Anabel Jonas, RN) 2018 (Given - Provider: Anabel Jonas, DAVID) insulin lispro (HumaLOG;Admelog) (100 unit/mL) subcutaneous [...] Provider: Admin Adt)1800 (Given - Provider: Gavin Rudd RN) 0800 (Not Given - Provider: Lauren Zavala RN - Reason: NPO)1400 (Given - Provider: Lauren Zavala RN)1757 (Given - Provider: Lauren Zavala, DAVID) 0957 (Given - Provider: Nava Huggins, DAVID)1305 [...] parameters not met)1614 (Given - Provider: Jaja Diallo, DAVID)2018 (Given - Provider: Anabel Jonas RN - [...] area)0900 (Automatically Held - Provider: Admin Adt)1206 ([facility] Unhold - Provider: Admin Adt)1303 (Given - Provider: Enid Johnson LPN) 1321 (Given - Provider: Lauren Zavala, DAVID) 0950 (Given - Provider: Nava Huggins, DAVID) pantoprazole EC (Protonix) tablet 40 mg 40 mg, Oral, DAILY, First dose on 07/15/24 at 0900, Until Discontinued 0857 ([facility] Hold - Provider: Admin Adt - Reason: Transfer to a Procedural area)0900 (Automatically Held - Provider: Admin Adt)1206 ([facility] Unhold - Provider: Admin Adt) 1321 (Given - Provider: Lauren Zavala, RN) 0950 (Given - Provider: Nava Huggins, RN) piperacillin-tazobactam (Zosyn) 3.375 g vial attach to sodium chloride 0.9% 50 mL Mini-Bag Plus 3.375 g, Intravenous, EVERY 8 HOURS, First dose on Wed07/16/24 at 1230, Until Discontinued, Administer over 4 Hours, Warning Vesicant/Irritant Medication Per quality assurance practice manager labeling, do not administer or Y-site with [...] Rudd, DAVID)1939 (New Bag - Provider: Anabel Jonas, DAVID)2341 (Stopped - Provider: Anabel Jonas, DAVID) 0412 (New Bag - Provider: Anabel Jonas RN)0812 (Stopped - Provider: Lauren Zavala, DAVID)1302 (New Bag - Provider: Lauren Zavala, DAVID)1702 (Stopped - Provider: Lauren Zavala, DAVID)2037 (New Bag - Provider: Anabel Jonas RN) 0037 (Stopped - Provider: Carlos Enrique Knowles, DAVID)0409 (New Bag - Provider: Carlos Enrique Knowles RN)0809 (Stopped - Provider: Nava Huggins, RN)1307 (New Bag - Provider: Nava Huggins, RN)1707 (Stopped - Provider: Nava Huggins, RN) protriptyline (Vivactil) tablet 10 mg 10 mg, Oral, 3 TIMES DAILY, First dose on Wed07/17/24 at 1200, Until Discontinued, Routine 0857 (MAR Hold - Provider: Admin Adt - Reason: Transfer to a Procedural area)0900 (Automatically Held - Provider: Admin Adt)1206 (MAR Unhold - Provider: Admin Adt)1305 (Given - Provider: Enid Johnson LPN)1500 (Not Given - Provider: Gavin Rudd RN - Reason: See comment - Comment: Not given due to first dose was given late because of being in the OR)2005 (Given - Provider: Anabel Jonas, DAVID) 0900 (Not Given - Provider: Lauren Zavala RN - Reason: See comment - Comment: too close to next dose)1613 (Given - Provider: Jaja Diallo RN)202 (Given - Provider: Anabel Jonas, DAVID) 1109 (Given - Provider: Nava Huggins, DAVID - Comment: missing medication rx notified)1522 (Given [...] refused) 1321 (Given - Provider: Lauren Zavala RN)202 (Given - Provider: Anabel Jonas RN) 0950 [...] Adt)2007 (Given - Provider: Anabel Jonas, RN) 0900 (Due)2100 (Given - Provider: Anabel Jonas, [...] Zavala RN) 1759 (Stopped - Provider: Nava Huggins RN) PRN Medication Order 07/19/2024 07/20/2024 07/21/2024 [...] Provider: Admin Adt)2305 (Given - Provider: Anabel L Jonas, DAVID) 0409 (Given - Provider: Carlos [...] Nick, DAVID)0958 (Given - Provider: Hailey Nick, RN)1002 (Given [...] area)1206 (MAR Unhold - Provider: Admin Adt) glucose (Glutose) [...] Reason: Transfer to a Procedural area)1206 ([facility] Unhold - Provider: Admin Adt) insulin lispro (HumaLOG;Admelog) (100 unit/mL) subcutaneous injection vial 0-20 Units 0-20 Units, Subcutaneous, 3 TIMES DAILY PRN, Starting on Wed07/18/24 at 0726, Until Wed07/21/24 at 2209, with snacks, [employer] Give 1 unit for every 4 grams carbohydrate. Hold if not eating or if BG less than 70 mg/dL., Routine 08 ([facility] Hold - Provider: Admin Adt - Reason: Transfer to a Procedural area)1206 ([facility] Unhold - Provider: Admin Adt) lactulose (Chronulac) (0.67 gram/mL) oral liquid 20 g(Linked Group 3) 20 g, Oral, DAILY PRN, Starting on 07/15/24 at 1431, Until Wed07/21/24 at 2209, Constipation, Give if no BM 24 hr after prior interventions or if BM is desired within 2 hr. Give concomitantly with any scheduled bowel medications ordered, Routine 08 ([facility] Hold - Provider: Admin Adt - Reason: Transfer to a Procedural area)1206 ([facility] Unhold - Provider: Admin Adt) [...] Reason: Transfer to a Procedural area)1206 ([facility] Unhold - Provider: Admin Adt) lidocaine (Xylocaine) 1% (10 mg/mL) injection 3 mg 3 mg (0.3 mL), Subcutaneous, ONCE PRN, 1 dose, Starting on Wed07/14/24 at 2208, Until Wed07/21/24 at 2209, for discomfort with PIV insertion, Routine 0857 ([facility] Hold - Provider: Admin Adt - Reason: Transfer to a Procedural area)1206 ([facility] CENTER Unhold - Provider: Admin Adt) [...] scheduled bowel medications ordered., Routine 0857 ([facility] Hold - Provider: Admin Adt - Reason: Transfer to a Procedural area)1206 ([facility] Unhold - Provider: Admin Adt) melatonin tablet 3 mg 3 mg, Oral, NIGHTLY PRN, Starting on Wed07/14/24 at 2208, Until Wed07/21/24 at 2209, Sleep, Sleep, Routine 0857 ([facility] Hold - Provider: Admin Adt - Reason: Transfer to a Procedural area)1206 ([facility] Unhold - Provider: Admin Adt) midazolam (pf) (Versed) (1 mg/mL) multi-dose injection 0.5-1 mg (CANCELED) 0.5-1 mg, Intravenous, EVERY 3 MIN PRN, Starting on Angelita 07/20/24 at 0918, Until Angleita 07/20/24 at 1142, Sedation, For use in [...] Nick, DAVID)0959 (Given - Provider: Hailey Nick, RN)1002 (Given - Provider: Hailey Nick, RN) ondansetron (pf) (Zofran) (2 mg/mL) injection 4 mg(Linked Group 5) 4 mg, Intravenous, EVERY 8 HOURS PRN, Starting on Wed07/14/24 at 2208, Until Wed07/21/24 at 2209, Nausea, 4 mg,Oral,EVERY 8 HOURS PRN, Nausea,Vomiting If multiple antiemetics are ordered, use ondansetron first. May repeat times one in 30 minutes if ineffective. 0857 ([facility] Hold - Provider: Admin Adt - Reason: Transfer to a Procedural area)1206 ([facility] Unhold - Provider: Admin Adt) ondansetron ODT [...] minutes if ineffective. , Routine 0857 ([facility] Hold - Provider: Admin Adt - Reason: Transfer to a Procedural area)1206 ([facility] Unhold - Provider: Admin Adt) [...] bowel medications ordered. , Routine 0857 ([facility] Hold - Provider: Admin Adt - Reason: Transfer to a Procedural area)1206 ([facility] Unhold - Provider: Admin Adt) prochlorperazine (Compazine) (5 mg/mL) injection 10 mg(Linked Group 6) 10 mg, Intravenous, EVERY 6 HOURS PRN, Starting on Wed07/14/24 at 2208, Until Wed07/21/24 at 2209, Nausea, Nausea/Vomiting, If multiple antiemetics are ordered, use ondansetron first. If ondansetron ineffective use prochlorperazine. Only give IV if unable to take PO, Routine 0857 ([facility] Hold - Provider: Admin Adt - Reason: Transfer to a Procedural area)1206 ([facility] Unhold - Provider: Admin Adt) prochlorperazine (Compazine) tablet 10 mg(Linked Group 6) 10 mg, Oral, EVERY 6 HOURS PRN, Starting on Wed07/14/24 at 2208, Until Wed07/21/24 at 2209, Nausea, Nausea/Vomiting, If multiple antiemetics are ordered, use ondansetron first. If ondansetron ineffective use prochlorperazine. PO Preferred. If patient unable to take PO, may give IV if ordered., Routine 0857 ([facility] Hold - Provider: Admin Adt - Reason: Transfer to a Procedural area)1206 ([facility] Unhold - Provider: Admin Adt) sodium chloride 0.9 % (flush) (BD PosiFlush Normal Saline 0.9) flush 5-20 mL 5-20 mL, Intravenous, EVERY 1 MIN PRN, Starting on Wed07/14/24 at 2208, Until Wed07/21/24 at 2209, flush, Flush pertains to all indwelling lines. Flush per protocol found in the job aid using the link provided on this medication record., Routine 0857 ([facility] Hold - Provider: Admin Adt - Reason: Transfer to a Procedural area)1206 ([facility] Unhold - Provider: Admin Adt) Linked Groups [...] on 07/16/24 at 0039, Until Wed07/21/24 at 220, Low blood sugar, For BG 50-70 mg/dL: [...] Routine documented in this encounter Care Teams Fiberglass Boat Builder Relationship Specialty Start Date End Date None None PCP - General 05/27/24 09/17/24 documented as of this encounter
--- OUTSIDE RECORDS SUMMARY | 2024-09-20 08:23 | XMS_ITS | Encounter Summary ---
Author Organization [facility] Address [facility] [place] [address] Care Team Providers Care Criminal Lawyer Name Role Phone None Primary Care Provider Unavailabl e Encounter Details Date Type Department Care Team (Late st Contact Info) Description 07/18/2024 5:26 PM EDT Anesthesia [place] [id number] Jules Rivera MD [facility] DR [place] [address] Jonnathan Scott DO [facility] DR [place] [address] Anesthesia Record Procedure Summary Procedure Name Responsible [...] by Alan Tobias RN PIV 08/01/24; 0637; over -the-needle catheter system; 20 gauge; metacarpal vein (top of hand), left; Anatomical Landmarks; brian zaragoza; distraction, tolerated well, appears comfortable 08/01/24 0637 by Brian Zaragoza RN PIV 08/01/24; 0750; 18 g auge; cephalic vein (lateral side of arm), right; Lynnette 08/01/24 0750 by Marko Mckeon CRNA Incision 08/01/24; 0832; Left , lower, medial; leg; vertical 08/01/24 0832 by Smooth Parson RN Incision 08/01/24; 0833; Left ; groin; vertical 08/01/24 0833 by Smooth Parson, RN documented in this encounter Social History Tobacco Use Types Packs/Day Years Used Date Smoking Tobacco: Every Day Cigarettes 1 25 Started: 12/28/1986; Last attempted to quit: 12/28/2011 Alcohol Use Standard Drinks/Week Comments No 0 (1 standard drink = 0.6 oz pur e alcohol) [facility] Utilities Answer Date Recorded In the past 12 months has th e [email or web address], gas, oil, or water [employer] threatened to shut off services in your [...] any time in the past [address] [facility], were you homeless or living in a half-way (including now)? No 07/17/2024 DH IPV Inpatient [...] 3:14 PM EDT Pre-Anesthesia Evaluation for: Lux Viet Dixon Jr. a 49 y.o. male. Procedure(s): [...] VEIN GRAFT performed by INNA TOVAR at [facility] MAIN OR ??? PRO ENDOSCOPY W/VIDEO-ASST VEIN HARVEST, CABG 01/04/2012 ENDOSCOPIC HARVEST VEIN(S) FOR CABG performed by INNA TOVAR at [facility] MAIN OR Social History Tobacco Use ??? [...] on filedocumented in this encounter Care Teams Criminal Lawyer Relationship Specialty Start Date End Date None None PCP - General 05/27/24 09/17/24 documented as of this encounter
--- OUTSIDE RECORDS SUMMARY | 2024-09-20 08:23 | XMS_ITS | Encounter Summary ---
Author Organization [facility] [place] [address] Care Team Providers Care Chainstitch Sewing Machine Operator Name Role Phone None Primary Care Provider Unavailabl e Encounter Details Date Type Department Care Team (Late st Contact Info) Description 06/03/2024 Notes Only [facility] [employer] [place] [address] Christy Lim Social History Tobacco Use Types Packs/Day Years Used Date Smoking Tobacco: Every Day Cigarettes 1 25 Started: 12/28/1986; Last attempted to quit: 12/28/2011 Alcohol Use Standard Drinks/Week Comments No 0 (1 standard drink = 0.6 oz pur e alcohol) [facility] Utilities Answer Date Recorded In [...] were you homeless or living in a long-term (including now)? No 05/29/2024 IPV Inpatient Questions [...] Lim - 06/03/2024 2:07 PM EDT JUAN TELEVISION MAINTENANCE WORKER FOLLOW UP: Patient Type: Emergency Department Did the patient participate in scheduled follow up?: No Reason patient did not follow up?: Lost to follow up [facility] attempted to contact Pt at [phone] (M). Number is disconnected, unable to reach Pt. Services have ended. MARKO Zuniga ED Recovery Support Pager # [phone] documented in this encounter Plan of Treatment Not on file documented as of this encounter Visit Diagnoses Not on filedocumented in this encounter Care Teams Chainstitch Sewing Machine Operator Relationship Specialty Start Date End Date None None PCP - General 05/27/24 09/17/24 documented as of this encounter
--- OUTSIDE RECORDS SUMMARY | 2024-09-20 08:24 | XMS_ITS | Encounter Summary ---
Author Organization [facility] Address [facility] [place] [address] Care Team Providers Care Intervention Analyst Name Role Phone None Primary Care Provider Unavailabl e Encounter Details Date Type Department Care Team (Late st Contact Info) Description 05/28/2024 Telephone [place] [phone] Dolly Dan MD [facility] [place] [address] Social History Tobacco Use Types Packs/Day Years Used Date Smoking Tobacco: Every Day Cigarettes 1 25 Started: 12/28/1986; Last attempted to quit: 12/28/2011 Alcohol Use Standard Drinks/Week Comments No 0 (1 standard drink = 0.6 oz pur e alcohol) [facility] Utilities Answer Date Recorded In the past 12 months has [facility] [employer], gas, oil, or water [employer] threatened to shut off services in your [...] any time in the past 12 m [facility], were you homeless or living in a longterm (including now)? No 05/29/2024 IPV Inpatient Questions [...] PM EDT I received a call from [facility] regarding Lux Dixon. This is a [...] intact. The patient will be transferred to [facility] ED for further evaluation and determine whether his symptoms are related to vascular disease. documented in this encounter Plan of Treatment Not on file documented as of this encounter Visit Diagnoses Not on filedocumented in this encounter Care Teams Intervention Analyst Relationship Specialty Start Date End Date None None PCP - General 05/27/24 09/17/24 documented as of this encounter
--- OUTSIDE RECORDS SUMMARY | 2024-09-20 08:24 | XMS_ITS | Encounter Summary ---
Author Organization [facility] Address [facility] Jean Marie britton [place] [id number] Care Team Providers Care Stage Technician Name Role Phone Patric Al MD Primary Care Provider [phone] Reason for Referral * (Routine) - Closed by system - Referral Specialty Diagnoses / Procedures Referred By Contac t Referred To Contact Cardiac Rehabilitation Diagnoses NSTEMI (non-ST elevated myocardial infarction) Sarthak Pollard MD [facility] [place] [address] Referral ID Status Reason Start Date Expiration Date Visits Requested Visits Authorized [id number] Closed by system - Referral Evaluate and Treat 3 02/18/2014 1 1 Encounter Details Date Type Department Care Team (Latest Contact Info) Description 08/20/2013 12:58 PM EDT - 08/22/2013 3:38 PM EDT Hospital Encounter Intermediate [place] [address] Asad Biggs MD [facility] [place] [address] Sarthak Pollard MD [facility] [place] [address] Chest pain; Coronary artery disease; ACS (acute [...] appointments: -During 8am-5pm Wednesday through Wednesday call [phone] to speak with a nurse in the cardiology clinic -All other times call [phone] and ask to speak to the galley stripper business solutions architect. Return to work/ usual actvities: 1 week, as tolerated. No squatting or lifting more than 10 pounds until then. Driving: No driving for 48 hours after catheterization. Follow up Appointments: PCP: PATRIC AL MD at [phone] to see you on WednesdayAugust 28 at 10:50 am. Consumer Education Specialist, Dr. Oseguera, to see you on 09/20/14 at noon. Please call [phone] with questions. Diabetes medication instructions You should [...] juice or regular (not diet) soda 6 [employer] small box of raisins 4 glucose tablets [...] * CHEST PAIN (ANGINA): AFTER YOUR VISIT (TOGOLESE) * CORONARY ARTERY DISEASE: AFTER YOUR VISIT (TOGOLESE) * DIABETES DIET GUIDELINES: AFTER YOUR VISIT (TOGOLESE) * HEART ATTACK: AFTER YOUR VISIT (TOGOLESE) * HEMOGLOBIN A1C: ABOUT THIS TEST (TOGOLESE) * HOME BLOOD GLUCOSE TEST: ABOUT THIS TEST (TOGOLESE) * CARDIAC CATHETERIZATION: AFTER YOUR VISIT (TOGOLESE) documented in this encounter Medications at Time of Discharge Medication Sig Dispensed Refills Start Date End Date Lancets (FREESTYLE LANCETS) MiscIndications:pred iabetes now s/p [...] tablet Take 225 mg by mouth daily. nitroGLYcerin (NITROSTAT) 0.[address] 1 tablet under the tongue daily as needed for Chest pain. 25 tablet 1 08/22/2013 aspirin 81 mg EC tablet Take 1 tablet by mouth daily. 30 tablet 11 08/22/2013 08/03/2024 clopidogrel (PLAVIX) 75 mg tablet Take 1 [...] Patient is a 38 y/o man from [place], [place]. He is disabled and on Social [...] Office of Care Management (OCM) / Clinical Nutrition Counselor (CRC)/ Initial Assessment Discussed patient with Provider [...] to drive with medication. No assistive devices TREKKING GUIDE. CURRENT FUNCTIONAL STATUS: same SOCIAL / FAMILY [...] he has Medicare D for prescriptions. Uses [facility] in [place] CURRENT HOME/COMMUNITY SERVICES/EQUIPMENT: None [employer] REFERRAL: Notified Alexandru SALCEDO Cook regarding pt's [place] Medicaid. Pt's [place] Medicaid is not active per Alexandru Casas [employer]. PRIMARY CARE PHYSICIAN: PATRIC AL MD ALEJANDRA [phone] [facility] [id number] POTENTIAL DISCHARGE NEEDS: None identified at this time. PATIENT/FAMILY EDUCATION NEEDS: Pt is new diabetic and will need education on his home regime before discharge. Endocrine consulting. ANTICIPATED BARRIERS TO DISCHARGE: none TRANSPORTATION @ D/C: Friend Hermila to supply transportation home PLAN: CRC will continue to monitor progress, follow for continuity of care and assist with discharge planning while hospitalized. Awaiting Endocrine consult. Cailsta Jaimes RETURNED ITEM CLERK CRC/Jaye Dennison MSN BSN RN CRC Office of Care Managment Pager [phone] . * Padma Marquez I, RD - 08/22/2013 11:42 AM EDT Nutrition Services Education Note Diet Rx: [facility]/Low Fat Patient Active Problem [...] Weight loss options discussed Phase II Referral: [facility] Activity Summary: By discharge, patient will be [...] up with PCP or Dr Bird in [place] I reviewed the patient with and agree with the recommendations and plans * Sarthak Pollard MD - 08/22/2013 7:18 AM EDT Inpatient Cardiology Progress Note Patient Name: Lux Dixon Service: EMERGENCY SPILL RESPONSE TECHNICIAN / PA Responsible Attending: Dr Pollard Reason for continued hospitalization: Evaluation and management of NSTEMI S/p cardiac catheterization, PCI of LCX, being seen by Cardiac Rehabilitation [facility] 10, Endocrine consulted Active Problems: Active [...] 2v CABG and recurrent angina, +NSTEMI pending [facility]. Stable. Plan: 1. CAD/ CABGx2, stable [...] discussed with Dr. Pollard. JUSTIN OROSCO Pager [phone] 08/22/2013 Cardiology Attending Note: I interviewed and [...] as oral agents. He lives in the [facility]. We will set him up to see Dr. Reji Lucia or one of his colleagues. Time spent at bedside and coordinating care: 35 mins. Sarthak Pollard MD, MS Staff Consumer Education Specialist Pager [phone] * Latonya Sanders - 08/21/2013 10:28 PM [...] Femoral and pedal pulses are palpable. Latonya aSnders MD # [id number] * Sarthak Pollard MD - 08/21/2013 8:36 AM EDT Inpatient Cardiology Progress Note Patient Name: Lux Dixon Jr. Service: EMERGENCY SPILL RESPONSE TECHNICIAN / PA Responsible Attending: Dr Pollard Reason for continued hospitalization: Evaluation and management of NSTEMI Active Problems: Active Hospital Problems Diagnosis ??? Coronary artery disease Priority: High NSTEMI 12-29-2011 Cath - LAD, PDA and Distal Circ Disease CABG 01-04-2012 (MARTINEZ-LAD, SVG-PDA) ??? TR (tricuspid regurgitation), mild Mild [place] ??? CAD (coronary artery disease) 2009 , [...] Infusions: ??? sodium chloride 0.9% 200 mL/hr (08/21/13905) ??? nitroGLYcerin 50 mcg/min (08/21/13215) ??? heparin 2,150 Units/hr (08/21/13 8829) ??? sodium chloride 0.9% Stopped (08/20/132154) Physical Exam: Vital Signs: Last value Range [...] 2v CABG and recurrent angina, +NSTEMI pending [facility]. Plan: 1. CAD/ CABGx2, [facility] today Needs risk factors addressed Has [...] to his RPDA and occlusion of his chenega RCA since that time of his last [...] at bedside and coordinating care: 35 mins. aSrthak Pollard MD, MS Staff Consumer Education Specialist Pager [phone] * Reny Kent RN - 08/20/2013 10:08 [...] 200ml/hr to be started at midnight. Dr. Godlen states to release the one for 200ml/hr anywhere between 00 and 0200. 0310) Patient alerted staff reporter that he is experiencing 3/10 left arm pain and a headache. [B/P 151/59]. Dr. Golden states to increase nitroglycerin gtt to 50mcg/min. Continue to monitor patient comfort. * Michelle Chong RN - 08/20/2013 3:00 PM EDT Complaining of 30/10 Chest Pain Radiating To Left arm Nitro Gtt Started Per 106/60 hr 69 [facility] pain Level is 11/17 118/58 65 ekg ordered documented in this encounter H&P Notes * Eben Bingham MD - 08/20/2013 3:12 PM EDT Cardiology Admission H & P Patient Name: Lux Dixon Jr. MRN No - [id number] Date of - 1975 Age - 38 [...] CABG MARTINEZ-LAD, SVG-PDA and Obesity transferred from [facility] because of CP which started yesterday while [...] relieved after 1 shot of morphine at [place]. His work showed NSR ECG w/o ST changes, elevated 2nd set of trop and negative D-dimer, wbc of 15K, normal electrolytes, glucose of 546, normal BUN/cr. He was urxam943 of plavix and started on heparin gtt. He had some CP on arrival to [facility] which was 11-3/10. ECG [...] FOR CABG performed by INNA TOVAR at [facility] ??? Cabg, artery-vein, single 01/04/2012 @CABG, VENOUS & ARTERIAL GRAFT;SINGLE VEIN GRAFT performed by INNA TOVAR at [facility] Family History: Family History Problem [...] CABG MARTINEZ-LAD, SVG-PDA in 2011 transferred from [place] because of CP which is different than his previous episode of CP. This time pain started in arm and radiating to chest and is also mild 1-. He also drove for 6 hrs yesterday. He had positive tropsat [place] although his ECG was negative. The pain relieved after leaning forward. I have above mentioned DD and also his d-dimer at [place] was negative so low prob of PE. I would admit for ACS and cont heparin. i would also keep him NPO and starting on nitro drip per Dr. Horvath's rec. Admit to telemetry Cycle bio-markers Repeat EKG Continue aspirin, simvastatin, metoprolol, plavix 300 mg x1 (given at [place]) and heparin Check fasting lipid profile and [...] was reviewed and signed. DM - at [place] his A1c was 6 Holding metformin and [...] clinical decision making Provider: Eben Bingham Pager: [phone] documented in this encounter Procedure Notes * Provider, Scanning - 08/24/2013 11:52 AM EDTAssociated Order(s): SCAN DOC: MELTER CASTER * Provider, Scanning - 08/21/2013 3:30 PM [...] management and to provide a reviewof his detention diabetes plan. Diabetes History: Lux Dixon Jr. [...] of SVG to RPDA and occlusion of chenega RCA. LVEDP 21. PCI of mid and [...] up with PCP or Dr Bird in [place] ??? Obesity Weight is 130.5 Kg [...] SVG-PDA in 2011 and obesity transferred from [facility] for chest pain which started the day [...] or vomiting. Hospital Course: On admission to [facility], he had CP on arrival to [facility] which was 1-01/15. ECG [...] occlusion of SVG to RPDA, occlusion of chenega RCA. The SVG to RCA was not [...] up with PCP or Dr Bird in [place] Smoking cessation was advised & discussed. [...] appointments: -During 8am-5pm Wednesday through Wednesday call [phone] to speak with a nurse in the cardiology clinic -All other times call [phone] and ask to speak to the galley stripper business solutions architect. Return to work/ usual actvities: 1 week, as tolerated. No squatting or lifting more than 10 pounds until then. Driving: No driving for 48 hours after catheterization. Follow up Appointments: PCP: PATRIC AL MD at [phone] to see you on WednesdayAugust 28 at 10:50 am. Consumer Education Specialist, Dr. Oseguera, to see you on 09/20/14 at noon. Please call [phone] with questions. Diabetes medication instructions You should [...] Complete By Expires Referral to Cardiac Rehab [[id number] Custom] Process Instructions: If no progress note charted, please enter Clinical details in comments. Scheduling Instructions: Comments: Pt will participate in cardiac rehab @ [facility] Questions: Responses: Reason for referral NSTEMI Provider Contact Information: JALEN Billingsley NP Dr Bruce Andrus [phone] Discharge References/Attachments: Discharge References/Attachments CHEST PAIN (ANGINA): AFTER YOUR VISIT (TOGOLESE) CORONARY ARTERY DISEASE: AFTER YOUR VISIT (TOGOLESE) DIABETES DIET GUIDELINES: AFTER YOUR VISIT (TOGOLESE) HEART ATTACK: AFTER YOUR VISIT (TOGOLESE) HEMOGLOBIN A1C: ABOUT THIS TEST (TOGOLESE) HOME BLOOD GLUCOSE TEST: ABOUT THIS TEST (TOGOLESE) Signed: JUSTIN OROSCO Pager [phone] DATE: 08/22/2013 * Miscellaneous - Provider, Scanning [...] Procedure Name Priority Date/Time Associated Diagnosis Comments MELTER CASTER SCAN 08/24/2013 11:52 AM EDT POCT GLUCOSE Routine 08/22/2013 11:52 AM EDT POCT GLUCOSE Routine 08/22/2013 7:47 AM EDT EKG 12-LEAD Routine 08/22/2013 7:45 AM EDT Chest pain BMP W/FASTING GLUCOSE Routine 08/22/2013 4:03 AM EDT DIFFERENTIAL, AUTOMATED Routine 08/22/20 4:03 AM EDT CARDIAC ENZYMES ([facility]P) Routine 08/22/2013 4:03 AM EDT CBC (WITH DIFF) Routine 08/22/2013 4:03 AM EDT POCT GLUCOSE Routine 08/21/2013 10:43 PM EDT POCT GLUCOSE Routine 08/21/2013 8:28 PM EDT CARDIAC ENZYMES ([facility]/CGP) STAT 08/21/2013 6:36 PM [...] STAT 08/20/2013 11:51 PM EDT CARDIAC ENZYMES ([facility]/CGP) STAT 08/20/2013 9:40 PM [...] 08/20/2013 1: 45 PM EDT CARDIAC ENZYMES ([facility]P) Routine 08/20/2013 1:45 PM EDT APTT Routine 08/20/2013 1:45 PM EDT PROTHROMBIN TIME Routine 08/20/2013 1:45 PM EDT CBC (WITH DIFF) Routine 08/20/2013 1:45 PM EDT MAGNESIUM Routine 08/20/2013 1:45 PM EDT BASIC METABOLIC PANEL Routine 08/20/2013 1:45 PM EDT POCT GLUCOSE Routine 08/20/2013 1:23 PM EDT documented in this encounter Results * SCAN DOC: MELTER CASTER (08/24/2013 11:52 AM EDT) Anatomical Region Laterality Modality Other Narrative 08/24/2013 12:55 PM EDT Procedure Note Provider, Scanning - 08/24/2013 11:52 AM EDT Scanning Provider MEDIA MGR SCAN EXT O RDR/RSLT * (ABNORMAL) POCT Glucose (08/22/2013 11:52 AM EDT) Glucose, POC 225(H) 60 - 199 mg/dL [facility] Comment: Supplemental ranges: <110 mg/dL before meals <200 mg/dL all other times of the day Blood specimen (specimen) 08/22/2013 11:52 AM EDT 08/22/2013 11:52 AM EDT Asad Biggs MD POINT OF CARE TEST O RDTYESHA Performing Organization Address [facility] de Phone Number [facility] [employer] (acquired by [employer] in 2014)[facility] * POCT Glucose (08/22/2013 7:47 AM EDT) Glucose, POC 199 60 - 199 mg/dL [facility] Comment: Supplemental ranges: <110 mg/dL before meals <200 mg/dL all other times of the day Blood specimen (specimen) 08/22/2013 7:47 AM EDT 08/22/2013 7:47 AM EDT Asad Biggs MD POINT OF CARE TEST O RDERAHERNANDEZ Performing Organization Address [facility] Co de Phone Number [facility] * EKG 12 Lead (08/22/2013 7:45 AM EDT) Ventricular rate 79 BPM MUSE SYSTEM Atrial Rate 79 BPM MUSE SYSTEM P-R Interval 182 ms MUSE SYSTEM QRS Duration 108 ms MUSE SYSTEM Q-T Interval 406 ms MUSE SYSTEM QTC Calculated (Bezet) 465 ms MUSE SYSTEM Calculated P [place] 57 degrees MUSE SYSTEM Calculated R [place] 23 degrees MUSE SYSTEM Calculated T [place] 2 degrees MUSE SYSTEM INTERPRETATION Normal sinus [...] EDT Tim Uribe MD HEMATOLOGY ORDERAB LES [facility] MILLENNIUM * (ABNORMAL) BMP w/fasting Glucose (08/22/2013 4:03 [...] of Diabetes Mellitus, Position Statement from the [place] [employer] Association. ??Diabetes Care, Volume 33, Supplement 1, Nov 2009 Blood Urea Nitrogen 6(L) 10 - 20 mg/dL [facility] MILLENNIUM Creatinine 0.62(L) 0.80 - 1.50 mg/dL [facility] MILLENNIUM Comment: Please note that the pediatric reference intervals supplied above were not validated at [facility]. Results from pediatric patients [...] damage. Diagnosis of acute, evolving or recent ME requires a typical rise and gradual fall [...] consensus document of the Joint Society of Cardiology/[place] College of Cardiology Committee for the redefinition of myocardial infarction. Journal of the [place] College [employer]iology 2000; 36: 959-969] Creatine Kinase 455(H) 0 - 200 unit/L [facility]ERNER MILLENNIUM Blood specimen (specimen) 08/22/2013 4:03 AM EDT 08/22/2013 4:42 AM EDT Narrative Resulting Agency Comment Spec In Lab Tim Uribe MD CHEMISTRY ORDERABL ES Performing Organization Address [facility]/ZIP Co de Phone Number CERBRIAN Managed by [employer] * (ABNORMAL) CBC (with Diff) (08/22/2013 4:03 [...] Lab Tim Uribe MD HEMATOLOGY ORDERAB LES [facility]ER[facility] NELSON * POCT Glucose (08/21/2013 10:43 PM EDT) Glucose, POC 193 60 - 199 mg/dL [facility] Comment: Supplemental ranges: <110 mg/dL before meals <200 mg/dL all other times of the day Blood specimen (specimen) 08/21/2013 10:43 PM EDT 08/21/2013 10:43 PM EDT Asad Biggs MD POINT OF CARE TEST O GILDA Performing Organization Address [facility] Co de Phone Number ARIAN NELSON * (ABNORMAL) POCT Glucose (08/21/2013 8:28 PM EDT) Glucose, POC 259(H) 60 - 199 mg/dL [facility] Comment: Supplemental ranges: <110 mg/dL before meals <200 mg/dL all other times of the day Blood specimen (specimen) 08/21/2013 8:28 PM EDT 08/21/2013 8:28 PM EDT Asad Biggs MD POINT OF CARE TEST O GILDA Performing Organization Address [facility] Co de Phone Number ARIAN NELSON * (ABNORMAL) Cardiac Enzymes (08/21/2013 6:36 PM EDT) Troponin-T 0.93(H) <=0.03 ng/mL [facility] Comment: 0.03 ng/mL: Represents the 99th percentile upper reference limit for normals. >0.03 ng/mL: Elevated cardiac troponin T level indicative of myocardial damage. Diagnosis of acute, evolving or recent ME requires a typical rise and gradual fall [...] consensus document of the Joint Society of Cardiology/[place] College of Cardiology Committee for the redefinition of myocardial infarction. Journal of the [place] College of [employer]iology 2000; 36: 959-969] Creatine Kinase 594(H) 0 - 200 unit/L [facility] Blood specimen (specimen) 08/21/2013 6:36 PM EDT 08/21/2013 6:47 PM EDT Narrative Resulting Agency Comment Spec In Lab Sarthak Pollard MD CHEMISTRY ORDERABLES Performing Organization Address [facility] de Phone Number [facility] * POCT Glucose (08/21/2013 4:25 PM EDT) Pathologist [facility] Glucose, POC 138 60 - 199 mg/dL [facility] Comment: Supplemental ranges: <110 mg/dL before meals <200 mg/dL all other times of the day Blood specimen (specimen) 08/21/2013 4:25 PM EDT 08/21/2013 4:25 PM EDT Asad Biggs MD POINT OF CARE TEST O RDERABLES Performing Organization Address [facility] Phone Number [facility] * EKG 12 Lead (08/21/2013 2:53 PM EDT) Ventricular rate 75 BPM MUSE SYSTEM Atrial Rate 75 BPM MUSE SYSTEM P-R Interval 172 ms MUSE SYSTEM QRS Duration 106 ms MUSE SYSTEM Q-T Interval 388 ms MUSE SYSTEM QTC Calculated (Bezet) 433 ms MUSE SYSTEM Calculated P [place] 11 degrees MUSE SYSTEM Calculated R [place] 35 degrees MUSE SYSTEM Calculated T [place] 1 degrees MUSE SYSTEM INTERPRETATION Normal sinus rhythm Normal ECG When compared with ECG of 21-AUG-2013 02:54, No significant change was found Confirmed by Pablito Torres MD ([id number]) on 08/22/2013 3:01:48 PM MUSE SYSTEM 08/21/2013 2:53 PM EDT 08/22/2013 3:01 PM EDT Tim Uribe MD ECG ORDERABLES Performing Organization Address [facility]/ZIP Co de Phone Number MUSE SYSTEM * Cardiac Catheterization (08/21/2013 2:38 PM EDT) Anatomical Region Laterality Modality Other Narrative 08/21/2013 7:29 PM EDT Procedure Note Provider, Karina - 08/21/2013 3:30 PM EDT Asad Biggs MD CARDIAC CATH ORDERAB LES * (ABNORMAL) POCT Glucose (08/21/2013 11:37 AM EDT) Glucose, POC 200(H) 60 - 199 mg/dL [facility] Managed by [facility] Comment: Supplemental ranges: <110 mg/dL before meals <200 mg/dL all other times of the day Blood specimen (specimen) 08/21/2013 11:37 AM EDT 08/21/2013 11:37 AM EDT Asad Biggs MD POINT OF CARE TEST O RDERABLES Performing Organization Address [facility] de Phone Number Time[facility]RI[facility] [employer] (acquired by [employer] in 2014)[facility]. [facility]ib[facility] * (ABNORMAL) APTT (08/21/2013 11:09 AM EDT) Partial Thromboplastin Time 63(H) 25 - 35 sec [facility] Managed by [facility] Comment: Recommended therapeutic PTT range for full dose unfractionated heparin is 80-114 seconds. Blood specimen (specimen) 08/21/2013 11:09 AM EDT 08/21/2013 11:42 AM EDT Narrative Resulting Agency Comment Spec In Lab Asad Biggs MD HEMATOLOGY ORDERABLE S Performing Organization Address [facility] de Phone Number TimefulBRIAN [employer] * Echocardiogram Transthoracic(Leb) (08/21/2013 9:16 AM EDT) EF 65 HEARTLAB SYSTEM Anatomical Region Laterality Modality Other 08/21/2013 Narrative 08/21/2013 9:51 AM EDT Procedure: ? Transthoracic Echocardiogram Patient: ? QUIANA Llanos ?(Age): 1975(38) Med Rec#: ?[id number] ? Sex: ?M ? Site Loc: ?[facility] ? Ht / Wt: ??180(cm)/127(kg) Pt. Loc: ? Adult Floor ?BSA: ?2.52 Study Date: ?08/21/2013 ? Pt. Type: Inpatient Tape: ? Referring: Eben Bingham Referring: AKANKSHA CAI Design Painter: Patric Blunt [facility] Interpreting Fellow: Luca Wilson ([id number]) Diagnosis: ??Chest pain (786.50) CPT Code(s): ??Echo Full (92259), ??Spectral Doppler (53878), ??Color Doppler (27906), Indication(s): ??Chest Pain Rhythm: HR ?BP ?121/62 [...] ? Mid-Inferior ?Normal ? Mid-Inferoseptal ?Normal ? [place]-Septal ? Normal ? [place]-Anterior ? Normal ? [place]-Lateral ?Normal ? [place]-Inferior ? Normal ? [place]-Tip ?Normal ? Chambers ?Value ?Units (Range) ? [...] 08/21/2013 09:50:27 Images reviewed and interpretation verified [facility] Cardiac Ultrasound Laboratory Resulting Agency Comment [id number] Procedure Note Umair Brock MD - 08/21/2013 Procedure: Transthoracic Echocardiogram Patient: QUIANA Llanos (Age): 1975(38) Med Rec#: [id number] Sex: M Site Loc: [facility] Ht / Wt: 180(cm)/127(kg) Pt. Loc: Adult Floor BSA: 2.52 Study Date: 08/21/2013 Pt. Type: Inpatient Tape: Referring: Eben Bingham Referring: AKANKSHA CAI Design Painter: Patric Blunt [facility] Interpreting Fellow: Luca Wilson ([id number]) Diagnosis: Chest pain (786.50) CPT Code(s): Echo Full (67333), Spectral Doppler (78942), Color Doppler (32588), Indication(s): Chest Pain Rhythm: HR BP 121/62 [...] Normal Mid-Posterolateral Normal Mid-Inferior Normal Mid-Inferoseptal Normal [place]-Septal Normal [place]-Anterior Normal [place]-Lateral Normal [place]-Inferior Normal [place]-Tip Normal Chambers Value Units (Range) LV EF [...] 08/21/2013 09:50:27 Images reviewed and interpretation verified [facility] Cardiac Ultrasound Laboratory Eben Ruiz MD ECHO ORDERABLES * (ABNORMAL) POCT Glucose (08/21/2013 8:33 AM EDT) Glucose, POC 202(H) 60 - 199 mg/dL [facility] Comment: Supplemental ranges: <110 mg/dL before meals <200 mg/dL all other times of the day Blood specimen (specimen) 08/21/2013 8:33 AM EDT 08/21/2013 8:33 AM EDT Asad Biggs MD POINT OF CARE TEST O RDERABLES CERNER ROBYENNIUM * (ABNORMAL) APTT (08/21/2013 3:53 AM EDT) Partial Thromboplastin Time 61(H) 25 - 35 sec [facility] MILLENNIUM Comment: Recommended therapeutic PTT range for full dose unfractionated heparin is 80-114 seconds. Blood specimen (specimen) 08/21/2013 3:53 AM EDT 08/21/2013 4:00 AM EDT Narrative Resulting Agency Comment Spec In Lab Eben Ruiz MD HEMATOLOGY ORDERABLE S CERBRIAN CAENNIUM * (ABNORMAL) Differential, Automated (08/21/2013 [...] 0.04 0.00 - 0.05 x10(3)/mc L CERBRIAN CERDAIUM Blood specimen (specimen) 08/21/2013 3:53 AM EDT 08/21/2013 4:00 AM EDT Eben Ruiz MD HEMATOLOGY ORDERABLE S Performing Organization Address [facility]/ZIP Co de Phone Number ARIAN CADomino Street * (ABNORMAL) Cardiac Enzymes (08/21/2013 3:53 AM EDT) Troponin-T 1.06(H) <=0.03 ng/mL ARIAN CAApakauIUM Comment: 0.03 ng/mL: Represents the 99th percentile upper reference limit for normals. >0.03 ng/mL: Elevated cardiac troponin T level indicative of myocardial damage. Diagnosis of acute, evolving or recent ME requires a typical rise and gradual fall [...] consensus document of the Joint Society of Cardiology/[place] College [employer] Cardiology Committee for the redefinition of myocardial infarction. Journal of the [place] College of [employer]iology 2000; 36: 959-969] Creatine Kinase 777(H) 0 - 200 unit/L [employer]ILL[employer] Blood specimen (specimen) 08/21/2013 3:53 AM EDT 08/21/2013 4:00 AM EDT Narrative Resulting Agency Comment Spec In Lab Eben Ruiz MD CHEMISTRY ORDERABLES Performing Organization Address [facility]/ZIP Co de Phone Number ARIAN [employer] * (ABNORMAL) BMP w/fasting Glucose (08/21/2013 3:53 AM EDT) [facility] Glucose Fasting 230(H) 65 - 99 mg/dL [...] of Diabetes Mellitus, Position Statement from the [place] Diabetes Association. ??Diabetes Care, Volume 33, Supplement 1, Nov 2009 Blood Urea Nitrogen 15 10 - 20 mg/dL CERNER MILLENNIUM Creatinine 0.67(L) 0.80 - 1.50 mg/dL CERNER MILLENNIUM Comment: Please note that the pediatric reference intervals supplied above were not validated at [facility] [place]. Results from pediatric patients [...] MD CHEMISTRY ORDERABLES Performing Organization Address [facility] Co de Phone Number CERNER MILLENNIUM [...] Prothrombin Time 13.5 12.0 - 15.0 sec [facility] Comment: [facility] Transfusion Committee Guidelines: INR less than 2.0, PTT less than OR equal to 43.5 seconds, or Fibrinogen greater than or equal to 100 mg/dl indicate adequate procoagulant activity for hemostasis in patients without underlying bleeding disorders. International Normalization Ratio 1.0 0.9 - 1.1 [facility] Blood specimen (specimen) 08/21/2013 3:53 AM EDT 08/21/2013 4:00 AM EDT Narrative Resulting Agency Comment Spec In Lab Asad Biggs MD HEMATOLOGY ORDERABLE S Performing Organization Address [facility] Co de Phone Number [facility] * (ABNORMAL) Triglyceride (08/21/2013 3:53 AM EDT) Triglyceride 733(H) <=149 mg/dL [facility] Comment: Reference Range: Normal triglycerides: ??<150 mg/dL Borderline high: ??150-199 mg/dL High: ??200-499 mg/dL Very high: ??>et=562 mg/dL ELISEO 2001; 285(28):4510-8857 Blood specimen (specimen) 08/21/2013 3:53 AM EDT 08/21/2013 4:00 AM EDT Narrative Resulting Agency Comment Spec In Lab Eben Ruiz MD CHEMISTRY ORDERABLES Performing Organization Address [facility] Co de Phone Number [facility] * (ABNORMAL) HDL/Cholesterol Profile (08/21/2013 3:53 AM EDT) Cholesterol, Total 218(H) <=199 mg/dL [facility] Comment: Recommendations of the NCEP Adult Treatment Panel for the following risk cutoff thresholds for the [place] population: Desirable: <200 mg/dL Borderline High: 200-239 mg/dL High: > or = 240 mg/dL HDL Cholesterol 24(L) >=40 mg/dL [facility] Comment: Reference range: ??Low HDL: ?? < 40 mg/dL ??Normal: ?40-60 mg/dL ??Desirable: > 60 mg/dL ELISEO 2001; 285(19):9162-7869 Cholesterol/HDL Ratio 9.1 ratio [facility] Comment: A Cholesterol to HDL ratio below 4:1 is desirable. ??Studies suggest that increased CAD risk occurs at ratios above 5 for females and above 6 for men. ? [place] Heart Association ??(http://www.americanheart.org) ? Jazmine Int Med, 1994; 121:641 ? AM J Med, 1998; 105(1A):48S Blood specimen (specimen) 08/21/2013 3:53 AM EDT 08/21/2013 4:00 AM EDT Narrative Resulting Agency Comment Spec In Lab Eben Ruiz MD CHEMISTRY ORDERABLES [facility] * (ABNORMAL) LDL Cholesterol, Direct (08/21/2013 3:53 AM EDT) LDL Cholesterol, Direct 107(H) <=99 mg/dL [facility] Comment: The National Cholesterol Education Program (NCEP) has set the following guidelines for LDL Cholesterol: Reference range: ?? Optimal: ?<100 mg/dL ?? Near Optimal/Above Optimal: ?? 100-129 mg/dL ?? Borderline high: ?130-159 mg/dL ?? High: ? 160-189 mg/dL ?? Very high: ?>eq=089 mg/dL ELISEO 2001: 285(19):5990-5739 Blood specimen (specimen) 08/21/2013 3:53 AM EDT 08/21/2013 4:00 AM EDT Narrative Resulting Agency Comment Spec In Lab Eben Ruiz MD CHEMISTRY ORDERABLES [facility] * (ABNORMAL) Hemoglobin A1c (08/21/2013 3:53 AM EDT) Hemoglobin A1c 10.0(H) 4.3 - 6.1 % [facility] Comment: The [place] Diabetes Association (ADA) has stated that HbA1c [...] 2013:36;suppl 1:S11-S66. Estimated Average Glucose 240 mg/dL [facility] Comment: eAG equivalents for HbA1c percentages: HbA1c(%) [...] into estimated average glucose values. ??Diabetes Care 2008:31(8):6650-3040. Blood specimen (specimen) 08/21/2013 3:53 AM EDT 08/21/2013 4:00 AM EDT Narrative Resulting Agency Comment Spec In Lab Eben Ruiz MD CHEMISTRY ORDERABLES Performing Organization Address [facility] de Phone Number [facility] [employer] * EKG 12 Lead (08/21/2013 2:54 AM EDT) Ventricular rate 68 BPM MUSE SYSTEM Atrial Rate 68 BPM MUSE SYSTEM P-R Interval 188 ms MUSE SYSTEM QRS Duration 104 ms MUSE SYSTEM Q-T Interval 406 ms MUSE SYSTEM QTC Calculated (Bezet) 431 ms MUSE SYSTEM Calculated P [place] 4 degrees MUSE SYSTEM Calculated R [place] 28 degrees MUSE SYSTEM Calculated T [place] 21 degrees MUSE SYSTEM INTERPRETATION Normal sinus rhythm Nonspecific T wave abnormality Abnormal ECG When compared with ECG of 20-AUG-2013 15:19, No significant change was found Confirmed by Brian DE [facility] (49) on 08/21/2013 12:56:35 PM MUSE SYSTEM 08/21/2013 2:54 AM EDT 08/21/2013 12:56 PM EDT Eben Ruiz MD ECG ORDERABLES Performing Organization Address [facility] de Phone Number MUSE SYSTEM * (ABNORMAL) POCT Glucose (08/21/2013 1:59 AM EDT) Glucose, POC 262(H) 60 - 199 mg/dL [facility] [employer] (acquired by [employer] in 2014)[facility] Comment: Supplemental ranges: <110 mg/dL before meals <200 mg/dL all other times of the day Blood specimen (specimen) 08/21/2013 1:59 AM EDT 08/21/2013 1:59 AM EDT Asad Biggs MD POINT OF CARE TEST O GILDA Performing Organization Address [facility] de Phone Number ARIAN NELSON * (ABNORMAL) POCT Glucose (08/20/2013 11:54 PM EDT) Glucose, POC 290(H) 60 - 199 mg/dL [facility] Comment: Supplemental ranges: <110 mg/dL before meals <200 mg/dL all other times of the day Blood specimen (specimen) 08/20/2013 11:54 PM EDT 08/20/2013 11:54 PM EDT Asad Biggs MD POINT OF CARE TEST O GILDA Performing Organization Address [facility] de Phone Number [facility] * APTT (08/20/2013 11:51 PM EDT) Partial Thromboplastin Time 35 25 - 35 sec [facility] Comment: Recommended therapeutic PTT range for full dose unfractionated heparin is 80-114 seconds. Blood specimen (specimen) 08/20/2013 11:51 PM EDT 08/21/2013 12:01 AM EDT Narrative Resulting Agency Comment Spec In Lab Asad Biggs MD HEMATOLOGY ORDERABLE S Performing Organization Address [facility] Phone Number [facility] * (ABNORMAL) Cardiac Enzymes (08/20/2013 9:40 PM EDT) Troponin-T 0.74(H) <=0.03 ng/mL [facility] Comment: 0.03 ng/mL: Represents the 99th percentile upper reference limit for normals. >0.03 ng/mL: Elevated cardiac troponin T level indicative of myocardial damage. Diagnosis of acute, evolving or recent ME requires a typical rise and gradual fall [...] consensus document of the Joint Society of Cardiology/[place] College [employer] Cardiology Committee for the redefinition of myocardial infarction. Journal of the [place] College of Cardiology 2000; 36: 959-969] Creatine [...] Glucose, POC 200(H) 60 - 199 mg/dL [facility] Comment: Supplemental ranges: <110 mg/dL before meals <200 mg/dL all other times of the day Blood specimen (specimen) 08/20/2013 8:26 PM EDT 08/20/2013 8:26 PM EDT Asad Biggs MD POINT OF CARE TEST O RDERABLES Performing Organization Address [facility] de Phone Number [facility] * (ABNORMAL) POCT Glucose (08/20/2013 5:03 PM EDT) Pathologist [facility] Glucose, POC 230(H) 60 - 199 mg/dL [facility] Comment: Supplemental ranges: <110 mg/dL before meals <200 mg/dL all other times of the day Blood specimen (specimen) 08/20/2013 5:03 PM EDT 08/20/2013 5:03 PM EDT Asad Biggs MD POINT OF CARE TEST O RDERAHERNANDEZ Performing Organization Address [facility] de Phone Number [facility] * EKG 12 Lead (08/20/2013 3:19 PM EDT) Pathologist [facility] Ventricular rate 68 BPM MUSE SYSTEM Atrial Rate 68 BPM MUSE SYSTEM P-R Interval 182 ms MUSE SYSTEM QRS Duration 100 ms MUSE SYSTEM Q-T Interval 410 ms MUSE SYSTEM QTC Calculated (Bezet) 435 ms MUSE SYSTEM Calculated P [place] 3 degrees MUSE SYSTEM Calculated R [place] 19 degrees MUSE SYSTEM Calculated T [place] 35 degrees MUSE SYSTEM INTERPRETATION Normal sinus [...] EDT Asad Biggs MD HEMATOLOGY ORDERABLE S CERNER MILLENNIUM * Magnesium (08/20/2013 1:45 PM EDT) Magnesium 0.74 0.69 - 1.07 mmol/L ARIAN NELSON Blood specimen (specimen) 08/20/2013 1:45 PM EDT 08/20/2013 1:54 PM EDT Narrative Resulting Agency Comment Spec In Lab Asad Biggs MD CHEMISTRY ORDERABLES Performing Organization Address [facility] de Phone Number ARIAN NELSON * (ABNORMAL) Cardiac Enzymes (08/20/2013 1:45 PM EDT) Troponin-T 0.34(H) <=0.03 ng/mL ARIAN NELSON Comment: 0.03 ng/mL: Represents the 99th percentile upper reference limit for normals. >0.03 ng/mL: Elevated cardiac troponin T level indicative of myocardial damage. Diagnosis of acute, evolving or recent ME requires a typical rise and gradual fall [...] consensus document of the Joint Society of Cardiology/[place] College of Cardiology Committee for the redefinition of myocardial infarction. Journal of the [place] College of Cardiology 2000; 36: 959-969] Creatine Kinase 505(H) 0 - 200 unit/L ARIAN NELSON Blood specimen (specimen) 08/20/2013 1:45 PM EDT 08/20/2013 1:54 PM EDT Narrative Resulting Agency Comment Spec In Lab Asad Biggs MD CHEMISTRY ORDERABLES Performing Organization Address [facility] de Phone Number ARIAN NELSON * (ABNORMAL) Basic Metabolic Panel (non-fasting) (08/20/2013 1:45 PM EDT) Glucose 246(H) 60 - 199 mg/dL ARIAN NELSON Comment:Diabetes: >=200 mg/d L plus symptoms Blood Urea Nitrogen 15 10 - 20 mg/dL CERNER MILLENNIUM Creatinine 0.68(L) 0.80 - 1.50 mg/dL CERNER MILLENNIUM Comment: Please note that the pediatric reference intervals supplied above were not validated at [facility] [place]. Results from pediatric patients [...] In Lab Asad Biggs MD CHEMISTRY ORDERABLES [facility]RI[facility] * (ABNORMAL) APTT (08/20/2013 1:45 PM EDT) Partial Thromboplastin Time 40(H) 25 - 35 sec CERNER MILLENNIUM Comment: Recommended therapeutic PTT range for full dose unfractionated heparin is 80-114 seconds. Blood specimen (specimen) 08/20/2013 1:45 PM EDT 08/20/2013 1:45 PM EDT Narrative Resulting Agency Comment Spec In Lab Asad Biggs MD HEMATOLOGY ORDERABLE S Performing Organization Address [facility] de Phone Number ARIAN NELSON * Prothrombin Time (08/20/2013 1:45 PM EDT) Prothrombin Time 13.7 12.0 - 15.0 sec [facility] Comment: [facility] Transfusion Committee Guidelines: INR less than 2.0, PTT less than OR equal to 43.5 seconds, or Fibrinogen greater than or equal to 100 mg/dl indicate adequate procoagulant activity for hemostasis in patients without underlying bleeding disorders. International Normalization Ratio 1.0 0.9 - 1.1 [facility] Blood specimen (specimen) 08/20/2013 1:45 PM EDT 08/20/2013 1:45 PM EDT Narrative Resulting Agency Comment Spec In Lab Asad Biggs MD HEMATOLOGY ORDERABLE S Performing Organization Address [facility] Phone Number ARIAN NELSON * D-Dimer, Quantitative (08/20/2013 1:45 PM EDT) D-Dimer <200 0 - 500 FEU ng/ml ARIAN [facility] Comment: The D-Dimer assay is used to [...] HEMATOLOGY ORDERABLE S Performing Organization Address [facility] de Phone Number CERNER MILLENNIUM * (ABNORMAL) CBC (with Diff) (08/20/2013 1:45 PM EDT) Pathologist [facility] White Blood Cell 12.2(H) 4.0 - 10.0 x10(3)/mc L [facility] MILLENNIUM Red Blood Cell 4.75 4.63 - 6.08 x10(6)/mc L CERNER MILLENNIUM Hemoglobin 14.7 13.7 - 17.5 gm/dL [facility] MILL[facility]UM Hematocrit 42.3 40.0 - 51.0 % CERNER MILLENNIUM Mean Cell Volume 89.1 79.0 - 92.0 fL CERNER MILLENNIUM Mean Cell Hemoglobin 30.9 25.6 - 32.2 pg [facility] MILLENNIUM Mean Cell Hemoglobin Concentration 34.8 32.0 - 36.5 gm/dL [facility] MILLENNIUM Platelet 247 145 - 370 x10(3)/mc L CERNER MILLENNIUM RDW Standard Deviation 39.1 35.0 - 46.0 fL CERNER MILLENNIUM RDW coefficient of variation 12.3 10.9 - 14.4 % CERNER MILLENNIUM Mean Platelet Volume 11.4 9.0 - 12.0 fL CERBRIAN MILLENNIUM Blood specimen (specimen) 08/20/2013 1:45 PM EDT 08/20/2013 1:45 PM EDT Narrative Resulting Agency Comment Spec In Lab Asad Biggs MD HEMATOLOGY ORDERABLE S ARIAN CERDAIUM * Lavender Tube HOLD (08/20/2013 1:45 PM EDT) Pathologist [facility] Lavender Hold Sample in lab. ARIAN CAENNIUM Blood specimen (specimen) 08/20/2013 1:45 PM EDT 08/20/2013 1:45 PM EDT Asad Biggs MD HEMATOLOGY ORDERABLE S ARIAN CAENNIUM * Blue Tube HOLD (08/20/2013 1:45 PM EDT) Pathologist [facility] Blue Hold Sample in lab. CERNER MILLENNIUM Blood specimen (specimen) 08/20/2013 1:45 PM EDT 08/20/2013 1:45 PM EDT Asad Biggs MD HEMATOLOGY ORDERABLE S Performing Organization Address [facility] de Phone Number ARIAN NELSON * Green Tube HOLD (08/20/2013 1:45 PM EDT) Green Hold Sample in lab. ARIAN NELSON Blood specimen (specimen) 08/20/2013 1:45 PM EDT 08/20/2013 1:45 PM EDT Asad Biggs MD CHEMISTRY ORDERABLES Performing Organization Address [facility] Phone Number ARIAN NELSON * (ABNORMAL) POCT Glucose (08/20/2013 1:23 PM EDT) Glucose, POC 243(H) 60 - 199 mg/dL ARIAN NELSON Comment: Supplemental ranges: <110 mg/dL before meals <200 mg/dL all other times of the day Blood specimen (specimen) 08/20/2013 1:23 PM EDT 08/20/2013 1:23 PM EDT Asad Biggs MD POINT OF CARE TEST O RDERABLES Performing Organization Address [facility] de Phone Number ARIAN NELSON documented in this encounter Visit Diagnoses Diagnosis NSTEMI (non-ST elevated myocardial infarction)- Primary Acute myocardial infarction, subendocardial infarction, episode of care unspecified Chest pain Chest pain, unspecified Coronary artery disease Coronary atherosclerosis of unspecified type of vessel, chenega or graft ACS (acute coronary syndrome) Intermediate coronary syndrome SOB (shortness of breath) Shortness of breath NSTEMI (non-ST elevated myocardial infarction) Acute myocardial infarction, subendocardial infarction, episode of care unspecified HTN (hypertension) Unspecified essential hypertension Hyperlipidemia Other and unspecified hyperlipidemia 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 (SVG to PDA closed 08/2013) Coronary atherosclerosis of unspecified type of vessel, chenega or graft Diabetes mellitus Type II or [...] than 145 sec X 2 - call editor house organ See Bolus dosing guidance for aPTT values [...] 50 mg, Oral, DAILY, First dose on [place] 08/20/13 at 1700, Until Discontinued, Routine Given 08/22/2013 8:5 9 AM EDT 50 mg Given 08/21/2013 9:00 AM EDT 50 mg Given 08/20/2013 6:37 PM EDT 50 mg simvastatin (ZOCOR) tablet 20 mg 20 mg, Oral, EVERY EVENING, First dose on [place] 08/20/13 at 1700, Until Discontinued Given 08/21/2013 5:11 PM EDT 20 mg Given 08/20/2013 6:37 PM EDT 20 mg sodium chloride 0.9 % flush 5 mL 5 mL, Intravenous, EVERY 12 HOURS, First dose on [place] 08/20/13 at 1545, Until Discontinued Given 08/20/2013 3:30 PM EDT 5 mLs sodium chloride 0.9 % flush 5 mL 5 mL, Intravenous, EVERY 12 HOURS, First dose on [place] 08/20/13 at 1545, Until Discontinued, Routine Given 08/21/2013 3:45 PM EDT 5 mLs Given 08/20/2013 3:30 PM EDT 5 mLs sodium chloride 0.9 % flush 5 mL 5 mL, Intravenous, EVERY 12 HOURS, First dose on [facility] 08/21/13 at 0200, Until Discontinued, Cath (Day of [...] , Routine 183 (Given - Provider: Sana Bella, DAVID)2021 (Given - Provider: Reny Kent RN) 0838 (Given - Provider: Lola Tipton, DAVID - Comment: pt was having echo)120 (Given [...] dose on Wed08/20/13 at 1700, Until Discontinued 1837 (Given - [...] than 145 sec X 2 - call editor house organ See Bolus dosing guidance for aPTT values less than 80 seconds under PRN medications, Routine 1330 (New Bag - Provider: Sana Bella RN)1841 (Rate/Dose Change - Provider: Sana Bella RN) 0032 (Rate/Dose Change - Provider: Reny Kent RN)0542 (Rate/Dose Change - Provider: Reny Kent RN)0552 (New Bag - Provider: Reny Kent RN)1230 (Stopped - Provider: Lola Tipton RN) nitroGLYcerin 50 mg in dextrose 5% 250 mL infusion (CANCELED) 10 mcg/min (rounded to 3 mL/hr), Intravenous, CONTINUOUS, Starting on 08/20/13 at 1500, Until Wed08/21/13 at 1525, Maximum [...] in sodium chloride 0.9% 50 mL infusion (TRUCK RENTAL MANAGER) (CANCELED) CONTINUOUS PRN, Starting on Wed08/21/13 at [...] Routine documented in this encounter Care Teams Stage Technician Relationship Specialty Start Date End Date Patric Al MD PCP - General 12/29/11 02/26/19 documented as of this encounter
--- OUTSIDE RECORDS SUMMARY | 2024-09-20 08:24 | XMS_ITS | Encounter Summary ---
Author Organization [facility] Address [facility] [place] [address] Care Team Providers Care Mainspring Former Name Role Phone None Primary Care Provider Unavailabl e Encounter Details Date Type Department Care Team (Late st Contact Info) Description 05/28/2024 11:55 AM EDT Ancillary Procedure Radiology Library at [facility] [place] [address] Jerry Marin MD [facility] [place] [address] Social History Tobacco Use Types Packs/Day Years Used Date Smoking Tobacco: Every Day Cigarettes 1 25 Started: 12/28/1986; Last attempted to quit: 12/28/2011 Alcohol Use Standard Drinks/Week Comments No 0 (1 standard drink = 0.6 oz pur e alcohol) [facility] Utilities Answer Date Recorded In the past 12 months has [facility] [employer], gas, oil, or water [employer] threatened to shut off services in your [...] any time in the past 12 m [facility], were you homeless or living in a jail (including now)? No 05/29/2024 IPV Inpatient Questions [...] MD IMG FILM LIBRARY ORD ERABLES VICKIE [place] documented in this encounter Visit Diagnoses Not on filedocumented in this encounter Care Teams Mainspring Former Relationship Specialty Start Date End Date None None PCP - General 05/27/24 09/17/24 documented as of this encounter
--- OUTSIDE RECORDS SUMMARY | 2024-09-20 08:24 | XMS_ITS | Encounter Summary ---
Author Organization [facility] Address [facility] [place] [address] Care Team Providers Care Locker Operator Name Role Phone Guanako Gusman MD Primary Care Provider [phone] Reason for Visit * Reason Comments Follow Up Surgery Encounter Details Date Type Department Care Team (Late st Contact Info) Description 03/08/2012 10:00 AM EDT Office Visit [place] [address] Inna Tovar MD [facility] [place] [address] S/P CABG (coronary artery bypass graft) (Primary [...] [facility] MA[facility] OR ??? Cabg, artery-vein, single 01/04/2012 @CABG, VENOUS & ARTERIAL GRAFT;SINGLE VEIN GRAFT performed by INNA TOVAR at [facility] MAIN OR Outpatient prescriptions marked as [...] status documented in this encounter Care Teams Locker Operator Relationship Specialty Start Date End Date Guanako Gusman MD PCP - General 12/29/11 02/26/19 documented as of this encounter
--- OUTSIDE RECORDS SUMMARY | 2024-09-20 08:24 | XMS_ITS | Encounter Summary ---
Author Organization [facility] Address [facility] [place] [address] Care Team Providers Care Credit Charge Authorizer Name Role Phone Guanako Gusman MD Primary Care Provider [phone] Encounter Details Date Type Department Care Team (Late st Contact Info) Description 08/20/2013 Telephone Cardiology at [address] [phone] Luz Horvath MD [facility] [place] [address] Social History Tobacco Use Types Packs/Day Years [...] Transfer call from Dr. Akanksha Torres at [facility]. 38 yo s/p recent CABG 2 [...] 99% on [address] [facility] for mgmt of UA/NSTEMI in noncompliant diabetic with recent CABG. Likely cardiac cath tomorrow. documented in this encounter Plan of Treatment Not on file documented as of this encounter Visit Diagnoses Not on filedocumented in this encounter Care Teams Credit Charge Authorizer Relationship Specialty Start Date End Date Guanako Gusman MD PCP - General 12/29/11 02/26/19 documented as of this encounter
--- OUTSIDE RECORDS SUMMARY | 2024-09-20 08:24 | XMS_ITS | Encounter Summary ---
Author Organization [facility] [place] [address] Care Team Providers Care Raw Shellfish Preparer Name Role Phone Guanako Gusman MD Primary Care Provider [phone] Reason for Visit * Reason Comments Medication Refill Encounter Details Date Type Department Care Team (Late st Contact Info) Description 12/29/2014 Refill Cardiology at [address] [phone] Amy Joshi, JUSTIN [address] [address] Medication Refill Social History Tobacco Use Types [...] on filedocumented in this encounter Care Teams Raw Shellfish Preparer Relationship Specialty Start Date End Date Guanako Gusman MD [address] [place] [id number] PCP - General 02/27/19 05/26/24 documented as of this encounter
--- OUTSIDE RECORDS SUMMARY | 2024-09-20 08:24 | XMS_ITS | Encounter Summary ---
Author Organization [facility] Address [facility] [place] [address] Care Team Providers Care Research Home Economist Name Role Phone Patric Al MD Primary Care Provider [phone] Encounter Details Date Type Department Care Team (Late st Contact Info) Description 08/21/2013 11:35 AM EDT - 08/21/2013 12:35 PM EDT [place] [address] Sarthak Kahn MD [facility] [place] [address] CARDIAC CATHETERIZATION Social History Tobacco Use Types [...] appointments: -During 8am-5pm Wednesday through Wednesday call [phone] to speak with a nurse in the cardiology clinic -All other times call [phone] and ask to speak to the bicycle inspector manager completions. Return to work/ usual actvities: 1 week, as tolerated. No squatting or lifting more than 10 pounds until then. Driving: No driving for 48 hours after catheterization. Follow up Appointments: PCP: PATRIC AL MD at [phone] to see you on WednesdayAugust 28 at 10:50 am. Supervisor Shipping Room, Dr. Oseguera, to see you on 09/20/14 at noon. Please call [phone] with questions. Diabetes medication instructions You should [...] * CHEST PAIN (ANGINA): AFTER YOUR VISIT (PORTUGUESE) * CORONARY ARTERY DISEASE: AFTER YOUR VISIT (PORTUGUESE) * DIABETES DIET GUIDELINES: AFTER YOUR VISIT (PORTUGUESE) * HEART ATTACK: AFTER YOUR VISIT (PORTUGUESE) * HEMOGLOBIN A1C: ABOUT THIS TEST (PORTUGUESE) * HOME BLOOD GLUCOSE TEST: ABOUT THIS TEST (PORTUGUESE) * CARDIAC CATHETERIZATION: AFTER YOUR VISIT (PORTUGUESE) documented in this encounter Medications at Time [...] Patient is a 38 y/o man from [place], [place]. He is disabled and on Social [...] Office of Care Management (OCM) / Clinical Plastics Engineering Teacher (CRC)/ Initial Assessment Discussed patient with Provider [...] to drive with medication. No assistive devices PULLER OVER. CURRENT FUNCTIONAL STATUS: same SOCIAL / FAMILY [...] D for prescriptions. Uses [facility] in [facility] CURRENT HOME/COMMUNITY SERVICES/EQUIPMENT: None SIZER HAND REFERRAL: Notified SIZER HANDAlexandru regarding pt's [place]. Pt's [place] Medicaid is not active per Alexandru SALCEDO. PRIMARY CARE PHYSICIAN: PATRIC AL MD ALEJANDRA [phone] / [facility] [id number] POTENTIAL DISCHARGE NEEDS: None identified at this [...] while hospitalized. Awaiting Endocrine consult. Calista Jaimes RECORD CHANGER TESTER CRC/Jaye FORTUNE BSN RN CRC Office of Care Managment Pager [phone] . * Padma Marquez I, DIMITRI - 08/22/2013 11:42 AM EDT Nutrition Services Education Note Diet Rx: [facility]/Low Fat Patient Active Problem List Diagnosis [...] Weight loss options discussed Phase II Referral: [facility] Activity Summary: By discharge, patient will be [...] Recent Labs Basename 08/22/13 0747 08/21/13 2243 08/21/138 08/21/13 1625 08/21/13 1137 08/21/13 0833 08/21/13 [...] up with PCP or Dr Bird in [place] I reviewed the patient with and agree with the recommendations and plans * Sarthak Pollard MD - 08/22/2013 7:18 AM EDT Inpatient Cardiology Progress Note Patient Name: Lux Dixon Jr. Service: COMPUTER PERIPHERAL EQUIPMENT OPERATOR / PA Responsible Attending: Dr Pollard Reason for continued hospitalization: Evaluation and management of NSTEMI S/p cardiac catheterization, PCI of LCX, being seen by Cardiac Rehabilitation [facility], Endocrine consulted Active Problems: Active Hospital [...] 2v CABG and recurrent angina, +NSTEMI pending [facility]. Stable. Plan: 1. CAD/ CABGx2, stable [...] discussed with Dr. Pollard. JUSTIN OROSCO Pager [phone] 08/22/2013 Cardiology Attending Note: I interviewed and [...] as oral agents. He lives in the Located within [facility]. We will set him up to see Dr. Reji Lucia or one of his colleagues. Time spent at bedside and coordinating care: 35 mins. Sarthak Pollard MD, MS Staff Supervisor Shipping Room Pager [phone] * Latonya Sanders - 08/21/2013 10:28 PM [...] pulses are palpable. Latonya Sanders MD # [id number] * Sarthak Pollard MD - 08/21/2013 8:36 AM EDT Inpatient Cardiology Progress Note Patient Name: Lux Dixon Jr. 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 Coronary artery disease Priority: High NSTEMI 12-29-2011 Cath - LAD, PDA and Distal Circ Disease CABG 01-04-2012 (MARTINEZ-LAD, SVG-PDA) ??? TR (tricuspid regurgitation), mild Mild WA ??? CAD (coronary artery disease) 2009 v CABG (MARTINEZ-LAD, SVG-PDA) ??? ACS (acute [...] mcg/min (08/21/13215) ??? heparin 2,150 Units/hr (08/21/13 0581) ??? sodium chloride 0.9% Stopped (08/20/13 3005) Physical Exam: Vital Signs: Last value Range [...] 2v CABG and recurrent angina, +NSTEMI pending [facility]. Plan: 1. CAD/ CABGx2, [facility] today Needs risk factors addressed Has [...] to his RPDA and occlusion of his kaibab RCA since that time of his last [...] mins. Sarthak Pollard MD, MS Staff Supervisor Shipping Room Pager [phone] * Reny Kent RN - 08/20/2013 10:08 [...] for 200ml/hr anywhere between 00 and 0200. 309) Patient alerted medical staff coordinator that he is experiencing 3/10 left arm pain and a headache. [B/P 151/59]. Dr. Golden states to increase nitroglycerin gtt to 50mcg/min. Continue to monitor patient comfort. * Michelle Chong RN - 08/20/2013 3:00 PM EDT Complaining of 30/10 Chest Pain Radiating To Left arm Nitro Gtt Started Per MD 106/60 hr 69 nitro Stated At 20mcg 1515 pain Level is 11/17 118/58 65 ekg ordered documented in this encounter H&P Notes * Eben Bingham MD - 08/20/2013 3:12 PM EDT Cardiology Admission H & P Patient Name: Lux Dixon Jr. MRN No - [id number] Date of - 1975 Age - 38 [...] CABG MARTINEZ-LAD, SVG-PDA and Obesity transferred from [facility] because of CP which started yesterday while [...] relieved after 1 shot of morphine at [place]. His work showed NSR ECG w/o ST changes, elevated 2nd set of trop and negative D-dimer, wbc of 15K, normal electrolytes, glucose of 546, normal BUN/cr. He was of plavix and started on heparin gtt. He had some CP on arrival to [facility] which was . ECG was normal. [...] FOR CABG performed by INNA TOVAR at [facility] MAIN OR ??? Cabg, artery-vein, single 01/04/2012 @CABG, VENOUS & ARTERIAL GRAFT;SINGLE VEIN GRAFT performed by INNA TOVAR at [facility] MA[facility] OR Family History: Family History [...] CABG MARTINEZ-LAD, SVG-PDA in 2011 transferred from [place] because of CP which is different than his previous episode of CP. This time pain started in arm and radiating to chest and is also mild 1-3 /10. He also drove for 6 hrs yesterday. He had positive tropsat [place] although his ECG was negative. The pain relieved after leaning forward. I have above mentioned DD and also his d-dimer at [place] was negative so low prob of PE. I would admit for ACS and cont heparin. i would also keep him NPO and starting on nitro drip per Dr. Horvath's rec. Admit to telemetry Cycle bio-markers Repeat EKG Continue aspirin, simvastatin, metoprolol, plavix 300 mg x1 (given at [place]) and heparin Check fasting lipid profile and [...] was reviewed and signed. 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 Diabetes History: Lux Dixon Jr. [...] of SVG to RPDA and occlusion of kaibab RCA. LVEDP . PCI of mid and [...] up with PCP or Dr Bird in [place] ??? Obesity Weight is 130.5 Kg [...] SVG-PDA in 2011 and obesity transferred from [facility] for chest pain which started the day [...] or vomiting. Hospital Course: On admission to [facility], he had CP on arrival to [facility] which was 1-3/10. ECG was normal. [...] occlusion of SVG to RPDA, occlusion of kaibab RCA. The SVG to RCA was not [...] up with PCP or Dr Bird in [place] Smoking cessation was advised & discussed. [...] appointments: -During 8am-5pm Wednesday through Wednesday call [phone] to speak with a nurse in the cardiology clinic -All other times call [phone] and ask to speak to the bicycle inspector manager completions. Return to work/ usual actvities: 1 week, as tolerated. No squatting or lifting more than 10 pounds until then. Driving: No driving for 48 hours after catheterization. Follow up Appointments: PCP: PATRIC AL MD at [phone] to see you on WednesdayAugust 28 at 10:50 am. Supervisor Shipping Room, Dr. Oseguera, to see you on 09/20/14 at noon. Please call [phone] with questions. Diabetes medication instructions You should [...] juice or regular (not diet) soda 6 Presdos small box of raisins 4 glucose tablets [...] Complete By Expires Referral to Cardiac Rehab [[id number] Custom] Process Instructions: If no progress note charted, please enter Clinical details in comments. Scheduling Instructions: Comments: Pt will participate in cardiac rehab @ [facility] Questions: Responses: Reason for referral NSTEMI Provider Contact Information: JALEN Billingsley NP Dr Bruce Andrus [phone] Discharge References/Attachments: Discharge References/Attachments CHEST PAIN (ANGINA): AFTER YOUR VISIT (PORTUGUESE) CORONARY ARTERY DISEASE: AFTER YOUR VISIT (PORTUGUESE) DIABETES DIET GUIDELINES: AFTER YOUR VISIT (PORTUGUESE) HEART ATTACK: AFTER YOUR VISIT (PORTUGUESE) HEMOGLOBIN A1C: ABOUT THIS TEST (PORTUGUESE) HOME BLOOD GLUCOSE TEST: ABOUT THIS TEST (PORTUGUESE) Signed: JUSTIN OROSCO Pager [phone] DATE: 08/22/2013 * Miscellaneous - Provider, Scanning [...] Procedure Name Priority Date/Time Associated Diagnosis Comments SUPERVISOR PIT AND AUXILIARIES SCAN 08/24/2013 11:52 AM EDT POCT GLUCOSE Routine 08/22/2013 11:52 AM EDT POCT GLUCOSE Routine 08/22/2013 7:47 AM EDT EKG 12-LEAD Routine 08/22/2013 7:45 AM EDT Chest pain BMP W/FASTING GLUCOSE Routine 08/22/2013 4:03 AM EDT DIFFERENTIAL, AUTOMATED Routine 08/22/20 4:03 AM EDT CARDIAC ENZYMES ([facility]/CGP) Routine 08/22/2013 4:03 AM EDT CBC (WITH DIFF) Routine 08/22/2013 4:03 AM EDT POCT GLUCOSE Routine 08/21/2013 10:43 PM EDT POCT GLUCOSE Routine 08/21/2013 8:28 PM EDT CARDIAC ENZYMES ([facility]/CGP) STAT 08/21/2013 6:36 PM EDT POCT [...] Routine 08/21/20 3:53 AM EDT CARDIAC ENZYMES ([facility]/CGP) Routine 08/21/2013 3:53 AM EDT APTT [...] STAT 08/20/2013 11:51 PM EDT CARDIAC ENZYMES ([facility]/CGP) STAT 08/20/2013 9:40 PM EDT XR [...] 08/20/2013 1: 45 PM EDT CARDIAC ENZYMES ([facility]/CGP) Routine 08/20/2013 1:45 PM EDT APTT Routine 08/20/2013 1:45 PM EDT PROTHROMBIN TIME Routine 08/20/2013 1:45 PM EDT CBC (WITH DIFF) Routine 08/20/2013 1:45 PM EDT MAGNESIUM Routine 08/20/2013 1:45 PM EDT BASIC METABOLIC PANEL Routine 08/20/2013 1:45 PM EDT POCT GLUCOSE Routine 08/20/2013 1:23 PM EDT documented in this encounter Results * SCAN DOC: SUPERVISOR PIT AND AUXILIARIES (08/24/2013 11:52 AM EDT) Anatomical Region Laterality Modality Other Narrative 08/24/2013 12:55 PM EDT Procedure Note Provider, Scanning - 08/24/2013 11:52 AM EDT Scanning Provider MEDIA MGR SCAN EXT O RDR/RSLT * (ABNORMAL) POCT Glucose (08/22/2013 11:52 AM EDT) [facility] Glucose, POC 225(H) 60 - 199 mg/dL [facility] Comment: Supplemental ranges: <110 mg/dL before meals <200 mg/dL all other times of the day Blood specimen (specimen) 08/22/2013 11:52 AM EDT 08/22/2013 11:52 AM EDT Asad Biggs MD POINT OF CARE TEST O RDERABLES Performing Organization Address [facility] Phone Number [facility] * POCT Glucose (08/22/2013 7:47 AM EDT) Pathologist [facility] Glucose, POC 199 60 - 199 mg/dL [facility] Comment: Supplemental ranges: <110 mg/dL before meals <200 mg/dL all other times of the day Blood specimen (specimen) 08/22/2013 7:47 AM EDT 08/22/2013 7:47 AM EDT Asad Biggs MD POINT OF CARE TEST O RDERABLES Performing Organization Address [facility] Phone Number [facility] * EKG 12 Lead (08/22/2013 7:45 AM EDT) [facility] Ventricular rate 79 BPM MUSE SYSTEM Atrial Rate 79 BPM MUSE SYSTEM P-R Interval 182 ms MUSE SYSTEM QRS Duration 108 ms MUSE SYSTEM Q-T Interval 406 ms MUSE SYSTEM QTC Calculated (Bezet) 465 ms MUSE SYSTEM Calculated P Dav[place] 57 degrees MUSE SYSTEM Calculated R [place] 23 degrees MUSE SYSTEM Calculated T [place] 2 degrees MUSE SYSTEM INTERPRETATION Normal sinus rhythm Cannot rule out Inferior infarct , age undetermined When compared with ECG of 21-AUG-2013 14:53, Borderline criteria for Inferior infarct are now present Confirmed by Pablito Torres MD ([id number]) on 08/23/2013 10:09:45 AM MUSE SYSTEM 08/22/2013 7:45 AM EDT 08/23/2013 10:09 AM EDT Tim Uribe MD ECG ORDERABLES Performing Organization Address [facility] Phone Number MUSE SYSTEM * [...] Absolute 0.06(H) 0.00 - 0.05 x10(3)/mc L [facility] Blood specimen (specimen) 08/22/2013 4:03 AM EDT 08/22/2013 4:42 AM EDT Tim Uribe MD HEMATOLOGY ORDERAB LES [facility] * (ABNORMAL) BMP w/fasting Glucose (08/22/2013 [...] of Diabetes Mellitus, Position Statement from the [place] Diabetes Association. ??Diabetes Care, Volume 33, Supplement 1, Nov 2009 Blood Urea Nitrogen 6(L) 10 - 20 mg/dL CERNER MILLENNIUM Creatinine 0.62(L) 0.80 - 1.50 mg/dL CERNER MILLENNIUM Comment: Please note that the pediatric reference intervals supplied above were not validated at [facility]. Results from pediatric patients should be [...] MD CHEMISTRY ORDERABL ES Performing Organization Address [facility] Co de Phone Number ARIAN NELSON * (ABNORMAL) Cardiac Enzymes (08/22/2013 4:03 AM EDT) Troponin-T 0.95(H) <=0.03 ng/mL ARIAN CERDAIUM Comment: 0.03 ng/mL: Represents the 99th percentile upper reference limit for normals. >0.03 ng/mL: Elevated cardiac troponin T level indicative of myocardial damage. Diagnosis of acute, evolving or recent CO requires a typical rise and gradual fall [...] consensus document of the Joint Society of Cardiology/[place] College of Cardiology Committee for the redefinition of myocardial infarction. Journal of the [place] College of Cardiology 2000; 36: 959-969] Creatine Kinase 455(H) 0 - 200 unit/L ARIAN NELSON Blood specimen (specimen) 08/22/2013 4:03 AM EDT 08/22/2013 4:42 AM EDT Narrative Resulting Agency Comment Spec In Lab Tim Uribe MD CHEMISTRY ORDERABL ES Performing Organization Address [facility]/ZIP Co de Phone Number ARIAN NELSON * (ABNORMAL) CBC (with Diff) (08/22/2013 4:03 AM EDT) White Blood Cell 10.0 4.0 - 10.0 x10(3)/mc L [facility] MILLENNIUM Red Blood Cell 4.17(L) 4.63 - 6.08 x10(6)/mc L [facility] Hemoglobin 12.7(L) 13.7 - 17.5 gm/dL [facility] Hematocrit 37.7(L) 40.0 - 51.0 % [facility] Mean Cell Volume 90.4 79.0 - 92.0 fL [facility] Mean Cell Hemoglobin 30.5 25.6 - 32.2 pg [facility] Mean Cell Hemoglobin Concentration 33.7 32.0 - 36.5 gm/dL [facility] Platelet 201 145 - 370 x10(3)/mc L [facility] RDW Standard Deviation 40.4 35.0 - 46.0 fL [facility] RDW coefficient of variation 12.4 10.9 - 14.4 % [facility] Mean Platelet Volume 11.2 9.0 - 12.0 fL [facility] Blood specimen (specimen) 08/22/2013 4:03 AM EDT 08/22/2013 4:42 AM EDT Narrative Resulting Agency Comment Spec In Lab Tim Uribe MD HEMATOLOGY ORDERAB LES Performing Organization Address City/[facility]/ZIP Co de Phone Number [facility] * POCT Glucose (08/21/2013 10:43 PM EDT) Glucose, POC 193 60 - 199 mg/dL [facility] Comment: Supplemental ranges: <110 mg/dL before meals <200 mg/dL all other times of the day Blood specimen (specimen) 08/21/2013 10:43 PM EDT 08/21/2013 10:43 PM EDT Asad Biggs MD POINT OF CARE TEST O RDERABLES Performing Organization Address City/[facility]/ZIP Co de Phone Number [facility] * (ABNORMAL) POCT Glucose (08/21/2013 8:28 PM EDT) Glucose, POC 259(H) 60 - 199 mg/dL [facility] Comment: Supplemental ranges: <110 mg/dL before meals <200 mg/dL all other times of the day Blood specimen (specimen) 08/21/2013 8:28 PM EDT 08/21/2013 8:28 PM EDT Asad Biggs MD POINT OF CARE TEST O RDERABLES Performing Organization Address [facility] de Phone Number [facility] [employer] * (ABNORMAL) Cardiac Enzymes (08/21/2013 6:36 PM EDT) Troponin-T 0.93(H) <=0.03 ng/mL [facility] Comment: 0.03 ng/mL: Represents the 99th percentile upper reference limit for normals. >0.03 ng/mL: Elevated cardiac troponin T level indicative of myocardial damage. Diagnosis of acute, evolving or recent CO requires a typical rise and gradual fall [...] consensus document of the Joint Society of Cardiology/[place] College of Cardiology Committee for the redefinition of myocardial infarction. Journal of the [place] College of Cardiology 2000; 36: 959-969] Creatine Kinase 594(H) 0 - 200 unit/L [facility] Blood specimen (specimen) 08/21/2013 6:36 PM EDT 08/21/2013 6:47 PM EDT Narrative Resulting Agency Comment Spec In Lab Sarthak Pollard MD CHEMISTRY ORDERABLES Performing Organization Address [facility] Co de Phone Number [facility] [employer] * POCT Glucose (08/21/2013 4:25 PM EDT) Glucose, POC 138 60 - 199 mg/dL [facility] Comment: Supplemental ranges: <110 mg/dL before meals <200 mg/dL all other times of the day Blood specimen (specimen) 08/21/2013 4:25 PM EDT 08/21/2013 4:25 PM EDT Asad Biggs MD POINT OF CARE TEST O RDERABLES Performing Organization Address [facility] Co de Phone Number [facility] * EKG 12 Lead (08/21/2013 2:53 PM EDT) Ventricular rate 75 BPM MUSE SYSTEM Atrial Rate 75 BPM MUSE SYSTEM P-R Interval 172 ms MUSE SYSTEM QRS Duration 106 ms MUSE SYSTEM Q-T Interval 388 ms MUSE SYSTEM QTC Calculated (Bezet) 433 ms MUSE SYSTEM Calculated P [place] 11 degrees MUSE SYSTEM Calculated R [place] 35 degrees MUSE SYSTEM Calculated T [place] 1 degrees MUSE SYSTEM INTERPRETATION Normal sinus rhythm Normal ECG When compared with ECG of 21-AUG-2013 02:54, No significant change was found Confirmed by Pablito Torres MD ([id number]) on 08/22/2013 3:01:48 PM MUSE SYSTEM 08/21/2013 2:53 PM EDT 08/22/2013 3:01 PM EDT iTm Uribe MD ECG ORDERABLES Performing Organization Address [facility] Co de Phone Number MUSE SYSTEM * Cardiac Catheterization (08/21/2013 2:38 PM EDT) Anatomical Region Laterality Modality Other Narrative 08/21/2013 7:29 PM EDT Procedure Note Provider, Scanning - 08/21/2013 3:30 PM EDT Asad Biggs MD CARDIAC CATH ORDERAB LES * (ABNORMAL) POCT Glucose (08/21/2013 11:37 AM EDT) Glucose, POC 200(H) 60 - 199 mg/dL [facility] Comment: Supplemental ranges: <110 mg/dL before meals <200 mg/dL all other times of the day Blood specimen (specimen) 08/21/2013 11:37 AM EDT 08/21/2013 11:37 AM EDT Asad Biggs MD POINT OF CARE TEST O RDERABLES Performing Organization Address [facility] Co de Phone Number [facility] * (ABNORMAL) APTT (08/21/2013 11:09 AM EDT) Partial Thromboplastin Time 63(H) 25 - 35 sec [facility] Comment: Recommended therapeutic PTT range for full dose unfractionated heparin is 80-114 seconds. Blood specimen (specimen) 08/21/2013 11:09 AM EDT 08/21/2013 11:42 AM EDT Narrative Resulting Agency Comment Spec In Lab Asad Biggs MD HEMATOLOGY ORDERABLE S Performing Organization Address [facility] de Phone Number [facility] * Echocardiogram Transthoracic(Leb) (08/21/2013 9:16 AM EDT) EF 65 HEARTLAB SYSTEM Anatomical Region Laterality Modality Other 08/21/2013 Narrative 08/21/2013 9:51 AM EDT Procedure: ? Transthoracic Echocardiogram Patient: ? QUIANA Llanos ?(Age): 1975(38) Med Rec#: ?[id number] ? Sex: ?M ? Site Loc: ?[facility] ? Ht / Wt: ??180(cm)/127(kg) Pt. Loc: ? Adult Floor ?BSA: ?2.52 Study Date: ?08/21/2013 ? Pt. Type: Inpatient Tape: ? Referring: Eben Binghma Referring: AKANKSHA CAI Accounts Receivable Analyst: Patric Blunt [facility] Interpreting Fellow: Luca Wilson ([id number]) Diagnosis: ??Chest pain (786.50) CPT Code(s): ??Echo Full (61258), ??Spectral Doppler (79763), ??Color Doppler (73467), Indication(s): ??Chest Pain Rhythm: HR ?BP ?121/62 [...] ? Mid-Inferior ?Normal ? Mid-Inferoseptal ?Normal ? Baxley-Septal ? Normal ? Baxley-Anterior ? Normal ? Baxley-Lateral ?Normal ? Baxley-Inferior ? Normal ? Baxley-Tip ?Normal ? Chambers ?Value ?Units (Range) ? [...] 08/21/2013 09:50:27 Images reviewed and interpretation verified [facility] Cardiac Ultrasound Laboratory Resulting Agency Comment [id number] Procedure Note Umair Brock MD - 08/21/2013 Procedure: Transthoracic Echocardiogram Patient: QUIANA Llanos (Age): 1975(38) Med Rec#: [id number] Sex: M Site Loc: [facility] Ht / Wt: 180(cm)/127(kg) Pt. Loc: Adult Floor BSA: 2.52 Study Date: 08/21/2013 Pt. Type: Inpatient Tape: Referring: Eben Bingham Referring: AKANKSHA CAI Accounts Receivable Analyst: Patric Blunt [facility] Interpreting Fellow: Luca Wilson ([id number]) Diagnosis: Chest pain (786.50) CPT Code(s): Echo Full (37003), Spectral Doppler (35251), Color Doppler (86208), Indication(s): Chest Pain Rhythm: HR BP 121/62 [...] Normal Mid-Posterolateral Normal Mid-Inferior Normal Mid-Inferoseptal Normal Baxley-Septal Normal Baxley-Anterior Normal Baxley-Lateral Normal Baxley-Inferior Normal Baxley-Tip Normal Chambers Value Units (Range) LV EF [...] 08/21/2013 09:50:27 Images reviewed and interpretation verified [facility] Cardiac Ultrasound Laboratory Eben Ruiz MD ECHO ORDERABLES * (ABNORMAL) POCT Glucose (08/21/2013 8:33 AM EDT) Pathologist [facility] Glucose, POC 202(H) 60 - 199 mg/dL [facility] Comment: Supplemental ranges: <110 mg/dL before meals <200 mg/dL all other times of the day Blood specimen (specimen) 08/21/2013 8:33 AM EDT 08/21/2013 8:33 AM EDT Asad Biggs MD POINT OF CARE TEST O RDERABLES Performing Organization Address [facility] Co de Phone Number [facility] * (ABNORMAL) APTT (08/21/2013 3:53 AM EDT) Partial Thromboplastin Time 61(H) 25 - 35 sec [facility] Comment: Recommended therapeutic PTT range for full dose unfractionated heparin is 80-114 seconds. Blood specimen (specimen) 08/21/2013 3:53 AM EDT 08/21/2013 4:00 AM EDT Narrative Resulting Agency Comment Spec In Lab Eben Ruiz MD HEMATOLOGY ORDERABLE S Performing Organization Address City/[facility]/ZIP Co de Phone Number [facility] * (ABNORMAL) Differential, Automated (08/21/2013 3:53 AM [...] 0.04 0.00 - 0.05 x10(3)/mc L CERNER ROBYENNIUM Blood specimen (specimen) 08/21/2013 3:53 AM EDT 08/21/2013 4:00 AM EDT Eben Ruiz MD HEMATOLOGY ORDERABLE S ARIAN NELSON * (ABNORMAL) Cardiac Enzymes (08/21/2013 3:53 AM EDT) Troponin-T 1.06(H) <=0.03 ng/mL CERNER MILLENNIUM Comment: 0.03 ng/mL: Represents the 99th percentile upper reference limit for normals. >0.03 ng/mL: Elevated cardiac troponin T level indicative of myocardial damage. Diagnosis of acute, evolving or recent CO requires a typical rise and gradual fall [...] consensus document of the Joint Society of Cardiology/[place] College of Cardiology Committee for the redefinition of myocardial infarction. Journal of the [place] College of Cardiology 2000; 36: 959-969] Creatine Kinase 777(H) 0 - 200 unit/L [facility] Blood specimen (specimen) 08/21/2013 3:53 AM EDT 08/21/2013 4:00 AM EDT Narrative Resulting Agency Comment Spec In Lab Eben Ruiz MD CHEMISTRY ORDERABLES [facility] * (ABNORMAL) BMP w/fasting Glucose (08/21/2013 3:53 AM EDT) Glucose Fasting 230(H) 65 - 99 mg/dL [facility] MarketVibeENNIUM Comment: ?Fasting* Glucose Interpretive Criteria Normal ?65-99 [...] of Diabetes Mellitus, Position Statement from the [place] Diabetes Association. ??Diabetes Care, Volume 33, Supplement 1, Nov 2009 Blood Urea Nitrogen 15 10 - 20 mg/dL [facility] Creatinine 0.67(L) 0.80 - 1.50 mg/dL CERNER MILLENNIUM Comment: Please note that the pediatric reference intervals supplied above were not validated at [facility]. Results from pediatric patients should be [...] Platelet Volume 11.1 9.0 - 12.0 fL [facility] MILLENNIUM Blood specimen (specimen) 08/21/2013 3:53 AM EDT 08/21/2013 4:00 AM EDT Narrative Resulting Agency Comment Spec In Lab Asad Biggs MD HEMATOLOGY ORDERABLE S ARIAN CERDAIUM * Prothrombin Time (08/21/2013 3:53 AM EDT) Prothrombin Time 13.5 12.0 - 15.0 sec [facility] Comment: [facility] Transfusion Committee Guidelines: INR less than 2.0, PTT less than OR equal to 43.5 seconds, or Fibrinogen greater than or equal to 100 mg/dl indicate adequate procoagulant activity for hemostasis in patients without underlying bleeding disorders. International Normalization Ratio 1.0 0.9 - 1.1 [facility] Blood specimen (specimen) 08/21/2013 3:53 AM EDT 08/21/2013 4:00 AM EDT Narrative Resulting Agency Comment Spec In Lab Asad Biggs MD HEMATOLOGY ORDERABLE S ARIAN CERDAIUM * (ABNORMAL) Triglyceride (08/21/2013 3:53 AM EDT) Triglyceride 733(H) <=149 mg/dL [facility] Comment: Reference Range: Normal triglycerides: ??<150 mg/dL Borderline high: ??150-199 mg/dL High: ??200-499 mg/dL Very high: ??>zp=457 mg/dL ELISEO 2001; 285(19):8169-1003 Blood specimen (specimen) 08/21/2013 3:53 AM EDT 08/21/2013 4:00 AM EDT Narrative Resulting Agency Comment Spec In Lab Eben Ruiz MD CHEMISTRY ORDERABLES [facility] * (ABNORMAL) HDL/Cholesterol Profile (08/21/2013 3:53 AM EDT) Cholesterol, Total 218(H) <=199 mg/dL [facility] Comment: Recommendations of the NCEP Adult Treatment Panel for the following risk cutoff thresholds for the [place] population: Desirable: <200 mg/dL Borderline High: 200-239 mg/dL High: > or = 240 mg/dL HDL Cholesterol 24(L) >=40 mg/dL [facility] Comment: Reference range: ??Low HDL: ?? < 40 mg/dL ??Normal: ?40-60 mg/dL ??Desirable: > 60 mg/dL ELISEO 2001; 285(19):1002-8827 Cholesterol/HDL Ratio 9.1 ratio [facility] ROBYHONORHE[facility] Comment: A Cholesterol to HDL ratio below 4:1 is desirable. ??Studies suggest that increased CAD risk occurs at ratios above 5 for females and above 6 for men. ? [place] Heart Association ??(http://www.americanheart.org) ? Jazmine Int Med, 1994; 121:641 ? AM J Med, 1998; 105(1A):48S Blood specimen (specimen) 08/21/2013 3:53 AM EDT 08/21/2013 4:00 AM EDT Narrative Resulting Agency Comment Spec In Lab Eben Ruiz MD CHEMISTRY ORDERABLES Performing Organization Address [facility] de Phone Number [facility] * (ABNORMAL) LDL Cholesterol, Direct (08/21/2013 3:53 AM EDT) LDL Cholesterol, Direct 107(H) <=99 mg/dL [facility] Comment: The National Cholesterol Education Program (NCEP) has set the following guidelines for LDL Cholesterol: Reference range: ?? Optimal: ?<100 mg/dL ?? Near Optimal/Above Optimal: ?? 100-129 mg/dL ?? Borderline high: ?130-159 mg/dL ?? High: ? 160-189 mg/dL ?? Very high: ?>pb=815 mg/dL ELISEO 2001: 28519):[id number] Blood specimen (specimen) 08/21/2013 3:53 AM EDT 08/21/2013 4:00 AM EDT Narrative Resulting Agency Comment Spec In Lab Eben Ruiz MD CHEMISTRY ORDERABLES Performing Organization Address [facility] de Phone Number [facility] * (ABNORMAL) Hemoglobin A1c (08/21/2013 3:53 AM EDT) [facility] Hemoglobin A1c 10.0(H) 4.3 - 6.1 % [facility] Comment: The [place] Diabetes Association (ADA) has stated that HbA1c [...] Estimated Average Glucose 240 mg/dL [facility] Comment: eAG equivalents for HbA1c percentages: HbA1c(%) [...] into estimated average glucose values. ??Diabetes Care 2008:31(8):5133-6800. Blood specimen (specimen) 08/21/2013 3:53 AM EDT 08/21/2013 4:00 AM EDT Narrative Resulting Agency Comment Spec In Lab Eben Ruiz MD CHEMISTRY ORDERABLES [facility] * EKG 12 Lead (08/21/2013 2:54 AM EDT) Ventricular rate 68 BPM MUSE SYSTEM Atrial Rate 68 BPM MUSE SYSTEM P-R Interval 188 ms MUSE SYSTEM QRS Duration 104 ms MUSE SYSTEM Q-T Interval 406 ms MUSE SYSTEM QTC Calculated (Bezet) 431 ms MUSE SYSTEM Calculated P [place] 4 degrees MUSE SYSTEM Calculated R [place] 28 degrees MUSE SYSTEM Calculated T [place] 21 degrees MUSE SYSTEM INTERPRETATION Normal sinus rhythm Nonspecific T wave abnormality Abnormal ECG When compared with ECG of 20-AUG-2013 15:19, No significant change was found Confirmed by Pablito Torres MD (49) on 08/21/2013 12:56:35 PM MUSE SYSTEM 08/21/2013 2:54 AM EDT 08/21/2013 12:56 PM EDT Eben Ruiz MD ECG ORDERABLES Performing Organization Address City/[facility]/ZIP Co de Phone Number MUSE SYSTEM * (ABNORMAL) POCT Glucose (08/21/2013 1:59 AM EDT) Glucose, POC 262(H) 60 - 199 mg/dL [facility] Comment: Supplemental ranges: <110 mg/dL before meals <200 mg/dL all other times of the day Blood specimen (specimen) 08/21/2013 1:59 AM EDT 08/21/2013 1:59 AM EDT Asad Biggs MD POINT OF CARE TEST O RDERABLES Performing Organization Address [facility] de Phone Number [facility] * (ABNORMAL) POCT Glucose (08/20/2013 11:54 PM EDT) Glucose, POC 290(H) 60 - 199 mg/dL [facility] Comment: Supplemental ranges: <110 mg/dL before meals <200 mg/dL all other times of the day Blood specimen (specimen) 08/20/2013 11:54 PM EDT 08/20/2013 11:54 PM EDT Asad Biggs MD POINT OF CARE TEST O RDERABLES Performing Organization Address [facility] Co de Phone Number [facility] * APTT (08/20/2013 11:51 PM EDT) Partial Thromboplastin Time 35 25 - 35 sec [facility] Comment: Recommended therapeutic PTT range for full dose unfractionated heparin is 80-114 seconds. Blood specimen (specimen) 08/20/2013 11:51 PM EDT 08/21/2013 12:01 AM EDT Narrative Resulting Agency Comment Spec In Lab Asad Biggs MD HEMATOLOGY ORDERABLE S Performing Organization Address [facility] Phone Number ARIAN NELSON * (ABNORMAL) Cardiac Enzymes (08/20/2013 9:40 PM EDT) [facility] Signature Troponin-T 0.74(H) <=0.03 ng/mL ARIAN NELSON Comment: 0.03 ng/mL: Represents the 99th percentile upper reference limit for normals. >0.03 ng/mL: Elevated cardiac troponin T level indicative of myocardial damage. Diagnosis of acute, evolving or recent CO requires a typical rise and gradual fall [...] consensus document of the Joint Society of Cardiology/[place] College of Cardiology Committee for the redefinition of myocardial infarction. Journal of the [place] College of Cardiology 2000; 36: 959-969] Creatine Kinase 828(H) 0 - 200 unit/L ARIAN MarketVibeYARYKEENA Blood specimen (specimen) 08/20/2013 9:40 PM EDT 08/20/2013 9:47 PM EDT Narrative Resulting Agency Comment Spec In Lab Eben Ruiz MD CHEMISTRY ORDERABLES Performing Organization Address [facility] Co de Phone Number ARIAN [...] 200(H) 60 - 199 mg/dL [facility] Comment: Supplemental ranges: <110 mg/dL before meals <200 mg/dL all other times of the day Blood specimen (specimen) 08/20/2013 8:26 PM EDT 08/20/2013 8:26 PM EDT Asad Biggs MD POINT OF CARE TEST O RDERABLES [facility] * (ABNORMAL) POCT Glucose (08/20/2013 5:03 PM EDT) Glucose, POC 230(H) 60 - 199 mg/dL [facility] Comment: Supplemental ranges: <110 mg/dL before meals [...] (Bezet) 435 ms MUSE SYSTEM Calculated P [place] 3 degrees MUSE SYSTEM Calculated R [place] 19 degrees MUSE SYSTEM Calculated T [place] 35 degrees MUSE SYSTEM INTERPRETATION Normal sinus rhythm Cannot rule out Inferior infarct (cited on or before 30-DEC-2011) When compared with ECG of 09-FEB-2012 10:55, Vent. rate has decreased BY ??34 BPM T wave inversion no longer evident in Anterior leads Confirmed by Brian DE, [facility] (49) on 08/20/2013 5:30:42 PM MUSE SYSTEM 08/20/2013 3:19 PM EDT 08/20/2013 5:30 PM EDT Asad Biggs MD ECG ORDERABLES Performing Organization Address City/[facility]/ZIP Co de Phone Number MUSE SYSTEM * [...] Gran % 0.30 0.00 - 0.66 % [facility] MILLENNIUM Comment: Immature granulocytes(IG's)percentage and absolute count will include metamyelocytes, myelocytes, and promyelocytes. Blood smears from CBCs yielding IG's will be scanned manually for concordance. If this scan disagrees with the automated IG or if promyelocytes are noted, a manual differential will be performed. Immature Gran Absolute 0.04 0.00 - 0.05 x10(3)/mc L [facility] Blood specimen (specimen) 08/20/2013 1:45 PM EDT 08/20/2013 1:45 PM EDT Asad Biggs MD HEMATOLOGY ORDERABLE S Performing Organization Address [facility] de Phone Number [facility] * Magnesium (08/20/2013 1:45 PM EDT) Pathologist [facility] Magnesium 0.74 0.69 - 1.07 mmol/L [facility] Blood specimen (specimen) 08/20/2013 1:45 PM EDT 08/20/2013 1:54 PM EDT Narrative Resulting Agency Comment Spec In Lab Asad Biggs MD CHEMISTRY ORDERABLES Performing Organization Address [facility] de Phone Number [facility] * (ABNORMAL) Cardiac Enzymes (08/20/2013 1:45 PM EDT) Troponin-T 0.34(H) <=0.03 ng/mL [facility] Comment: 0.03 ng/mL: Represents the 99th percentile upper reference limit for normals. >0.03 ng/mL: Elevated cardiac troponin T level indicative of myocardial damage. Diagnosis of acute, evolving or recent CO requires a typical rise and gradual fall [...] consensus document of the Joint Society of Cardiology/[place] College of Cardiology Committee for the redefinition of myocardial infarction. Journal of the [place] College of Cardiology 2000; 36: 959-969] Creatine Kinase 505(H) 0 - 200 unit/L CERNER MILLENNIUM Blood specimen (specimen) 08/20/2013 1:45 PM EDT 08/20/2013 1:54 PM EDT Narrative Resulting Agency Comment Spec In Lab Asad Biggs MD CHEMISTRY ORDERABLES [facility] [employer] * (ABNORMAL) Basic Metabolic Panel (non-fasting) (08/20/2013 1:45 PM EDT) [facility] Glucose 246(H) 60 - 199 mg/dL CERNER MILLENNIUM Comment:Diabetes: >=200 mg/d L plus symptoms Blood Urea Nitrogen 15 10 - 20 mg/dL CERNER MILLENNIUM Creatinine 0.68(L) 0.80 - 1.50 mg/dL CERNER MILLENNIUM Comment: Please note that the pediatric reference intervals supplied above were not validated at [facility]. Results from pediatric patients should be [...] Biggs MD CHEMISTRY ORDERABLES Performing Organization Address [facility] Co de Phone Number CERBRIAN Market[employer]ibeENNIUM * (ABNORMAL) APTT (08/20/2013 1:45 PM EDT) Partial Thromboplastin Time 40(H) 25 - 35 sec CERNER MILLENNIUM Comment: Recommended therapeutic PTT range for full dose unfractionated heparin is 80-114 seconds. Blood specimen (specimen) 08/20/2013 1:45 PM EDT 08/20/2013 1:45 PM EDT Narrative Resulting Agency Comment Spec In Lab Asad Biggs MD HEMATOLOGY ORDERABLE S Performing Organization Address [facility] Co de Phone Number ARIAN CAENNIUM * Prothrombin Time (08/20/2013 1:45 PM EDT) Prothrombin Time 13.7 12.0 - 15.0 sec CERNER MILLENNIUM Comment: [facility] Transfusion Committee Guidelines: INR less than 2.0, PTT less than OR equal to 43.5 seconds, or Fibrinogen greater than or equal to 100 mg/dl indicate adequate procoagulant activity for hemostasis in patients without underlying bleeding disorders. International Normalization Ratio 1.0 0.9 - 1.1 CERNER MILLENNIUM Blood specimen (specimen) 08/20/2013 1:45 PM EDT 08/20/2013 1:45 PM EDT Narrative Resulting Agency Comment Spec In Lab Asad Biggs MD HEMATOLOGY ORDERABLE S Performing Organization Address [facility] Co de Phone Number ARIAN NELSON * D-Dimer, Quantitative (08/20/2013 1:45 PM EDT) Pathologist [facility] D-Dimer <200 0 - 500 FEU ng/ml [facility] Comment: The D-Dimer assay is used to [...] MD HEMATOLOGY ORDERABLE S Performing Organization Address [facility] Co de Phone Number ARIAN NELSON * (ABNORMAL) CBC (with Diff) (08/20/2013 1:45 PM EDT) Pathologist [facility] White Blood Cell 12.2(H) 4.0 - 10.0 [...] MD HEMATOLOGY ORDERABLE S Performing Organization Address [facility] Co de Phone Number ARIAN CERDAIUM * Lavender Tube HOLD (08/20/2013 1:45 PM EDT) Lavender Hold Sample in lab. ARIAN CERDAIUM Blood specimen (specimen) 08/20/2013 1:45 PM EDT 08/20/2013 1:45 PM EDT Asad Biggs MD HEMATOLOGY ORDERABLE S Performing Organization Address [facility] Co de Phone Number ARIAN CERDAIUM * Blue Tube HOLD (08/20/2013 1:45 PM EDT) Blue Hold Sample in lab. ARIAN CERDAIUM Blood specimen (specimen) 08/20/2013 1:45 PM EDT 08/20/2013 1:45 PM EDT Asad Biggs MD HEMATOLOGY ORDERABLE S Performing Organization Address [facility] Co de Phone Number ARIAN CERDAIUM * Green Tube HOLD (08/20/2013 1:45 PM EDT) Green Hold Sample in lab. ARIAN CERDAIUM Blood specimen (specimen) 08/20/2013 1:45 PM EDT 08/20/2013 1:45 PM EDT Asad Biggs MD CHEMISTRY ORDERABLES Performing Organization Address City/[facility]/ZIP Co de Phone Number ARIAN CERDAIUM * (ABNORMAL) POCT Glucose (08/20/2013 1:23 PM EDT) Pathologist [facility] Glucose, POC 243(H) 60 - 199 mg/dL [facility] Comment: Supplemental ranges: <110 mg/dL before meals <200 mg/dL all other times of the day Blood specimen (specimen) 08/20/2013 1:23 PM EDT 08/20/2013 1:23 PM EDT Asad Biggs MD POINT OF CARE TEST O RDERABLES [facility] documented in this encounter Visit Diagnoses [...] in sodium chloride 0.9% 50 mL infusion (CLAIMS SPECIALIST) CONTINUOUS PRN, Starting on Wed08/21/13 at 1345, [...] on 08/20/13 at 1700, Until Discontinued, Routine Given 08/22/2013 8:5 9 AM EDT 50 mg Given 08/21/2013 9:00 AM EDT 50 mg Given 08/20/2013 6:37 PM EDT 50 mg simvastatin (ZOCOR) tablet 20 mg 20 mg, Oral, EVERY EVENING, First dose on 08/20/13 at 1700, Until Discontinued Given 08/21/2013 5:11 PM EDT 20 mg Given 08/20/2013 6:37 PM EDT 20 mg sodium chloride 0.9 % flush 5 mL 5 mL, Intravenous, EVERY 12 HOURS, First dose on 08/20/13 at 1545, Until Discontinued Given 08/20/2013 3:30 PM EDT 5 mLs sodium chloride 0.9 % flush 5 mL 5 mL, Intravenous, EVERY 12 HOURS, First dose on 08/20/13 at 1545, Until Discontinued, Routine Given 08/21/2013 3:45 PM EDT 5 mLs Given 08/20/2013 3:30 PM EDT 5 mLs sodium chloride 0.9 % flush 5 mL 5 mL, Intravenous, EVERY 12 HOURS, First dose on 08/21/13 at 0200, Until Discontinued, Cath (Day of Procedure), Routine Given 08/22/2013 2:00 AM EDT 5 mLs Given 08/21/2013 1:44 AM EDT 5 mLs sodium chloride 0.9 % flush 5 mL 5 mL, Intravenous, EVERY 12 HOURS, First dose on 08/21/13 at 0015, Until Discontinued, Cath (Day of [...] 1 dose 0013 (Given - Provider: Reny M Houdegbe, RN) insulin glargine (LANTUS) PEN injection 10 Units 10 Units, Subcutaneous, NIGHTLY, First dose on Wed08/21/13 at 2100, Until Discontinued, Routine 2046 (Given - Provider: Allen Tavarez RN) metFORMIN (GLUCOPHAGE) tablet 500 mg 500 mg, [...] Discontinued, Routine 1836 (Given - Provider: Sana Bella RN) 0900 (Given - Provider: Lola Tipton RN) 0859 (Given - Provider: Roxanna Mcallister) simvastatin (ZOCOR) tablet 20 mg (CANCELED) 20 mg, Oral, EVERY EVENING, First dose on Wed08/20/13 at 1700, Until Discontinued 1836 (Given - Provider: Sana Bella RN) 171 (Given - Provider: Lola Tipton RN) sodium [...] in sodium chloride 0.9% 50 mL infusion (CLAIMS SPECIALIST) (CANCELED) CONTINUOUS PRN, Starting on Wed08/21/13 [...] Routine documented in this encounter Care Teams Research Home Economist Relationship Specialty Start Date End Date Patric Al MD PCP - General 12/29/11 02/26/19 documented as of this encounter
--- OUTSIDE RECORDS SUMMARY | 2024-09-20 08:24 | XMS_ITS | Encounter Summary ---
Author Organization [facility] Address [facility] [place] [address] Care Team Providers Care Upsetter Helper Name Role Phone Guanako Gusman MD Primary Care Provider [phone] Reason for Visit * Reason Onset Date Comments Medication Refill 08/25/2013 Encounter Details Date Type Department Care Team (Late st Contact Info) Description 08/25/2013 Refill Cardiology at [address] [id number] Sarthak Pollard MD [facility] [place] [address] Medication Refill Social History Tobacco Use Types [...] Coronary atherosclerosis of unspecified type of vessel, [place] or graft documented in this encounter Care Teams Upsetter Helper Relationship Specialty Start Date End Date Guanako Gusman MD PCP - General 12/29/11 02/26/19 documented as of this encounter
--- OUTSIDE RECORDS SUMMARY | 2024-09-20 08:24 | XMS_ITS | Encounter Summary ---
Author Organization [facility], [facility] [place] [address] Care Team Providers Care Compliance Manager Name Role Phone None Primary Care Provider Unavailabl e Encounter Details Date Type Department Care Team (Latest Contact Info) Description 05/30/2024 Travel Social History Tobacco Use Types Packs/Day Years Used Date Smoking Tobacco: Every Day Cigarettes 1 25 Started: 12/28/1986; Last attempted to quit: 12/28/2011 Alcohol Use Standard Drinks/Week Comments No 0 (1 standard drink = 0.6 oz pur e alcohol) [facility] Utilities Answer Date Recorded In the [...] time in the past 12 m [facility], were you homeless or living in a halfway (including now)? No 05/29/2024 DH IPV Inpatient [...] on filedocumented in this encounter Care Teams Compliance Manager Relationship Specialty Start Date End Date None None PCP - General 05/27/24 09/17/24 documented as of this encounter
--- OUTSIDE RECORDS SUMMARY | 2024-09-20 08:24 | XMS_ITS | Encounter Summary ---
Author Organization [facility] [place] [address] Care Team Providers Care Extractive Metallurgist Name Role Phone None Primary Care Provider Unavailabl e Reason for Referral * Diagnostic Test (Routine) - Authorized Specialty Diagnoses / Procedures Referred By Contac t Referred To Contact Diagnoses Limb ischemia Critical limb ischemia of left lower extremity Procedures Arterial Duplex Leg, Unil Preston Dee MD [facility] [place] [address] [facility] Lab [address] [place] [phone] Referral ID Status Reason Start Date Expiration Date Visits Requested Visits Authorized [id number] Authorized Specialty Service Requested 06/02/2024 06/02/2025 1 1 * Diagnostic Test (Routine) - Authorized Specialty Diagnoses / Procedures Referred By Contac t Referred To Contact Diagnoses Limb ischemia Procedures ELEN, legs, multiple levels Preston Dee MD [facility] [place] [address] [facility] [address] [place] [phone] Referral ID Status Reason Start Date Expiration Date Visits Requested Visits Authorized [id number] Authorized Specialty Service Requested 06/02/2024 06/02/2025 1 1 Reason for Visit * Reason Comments Circulatory Problem * Auth/Cert (Routine) Specialty Diagnoses / Procedures Referred By Contac t Referred To Contact Diagnoses Limb ischemia Critical limb ischemia of left lower extremity calf pain Procedures ER IPI Jerry Marin MD [facility] [place] [address] [facility] Referral ID Status Reason Start Date Expiration Date Visits Re quested Visits Authorized [id number] 1 1 Encounter Details Date Type Department Care Team (Latest Contact Info) Description 05/28/2024 5:40 PM EDT - 06/02/2024 6:45 PM EDT Hospital Encounter Surgical Unit Level 4 [place] [phone] Arthur Patel [facility] [place] [address] Jerry Marin MD [facility] [place] [address] Limb ischemia; Critical limb ischemia of left lower extremity Discharge Disposition: Home Social History Tobacco Use Types Packs/Day Years Used Date Smoking Tobacco: Every Day Cigarettes 1 25 Started: 12/28/1986; Last attempted to quit: 12/28/2011 Alcohol Use Standard Drinks/Week Comments No 0 (1 standard drink = 0.6 oz pur e alcohol) [facility] Utilities Answer Date Recorded In the past 12 months has [employer], [employer], oil, or water [email or web address] threatened to shut off services in your [...] medical appointments or from getting medications? No 07/2 12/2023 In the past 12 months, has l [...] any time in the past 12 m the [facility], were you homeless or living in a [place] care facility (including now)? No 05/29/2024 [facility] IPV Inpatient [...] use, narcolepsy/cataplexy, who initially presented to [facility] ED with c/o 3d acute onset left calf pain. CTA revealed short segment popliteal occlusion with distal reconstitution. On arrival to [facility] he is hemodynamically normal on RA. He [...] to date on transfer documentation from [facility]. Hospital Course: Geovanna was immediately started [...] 05/30/2024 11:20 AM) Result Value WORKSTATION ID [id number] NM Pharmacologic Stress and Rest Myocardial Perfusion (Exam End: 05/30/2024 10:40 AM) Result Value WORKSTATION ID [id number] Impression 1. There is a small sized, [...] have questions please contact the health care provider that requested your imaging first. Electronically signed by: Angel Oliva MD, [facility] ([phone]), at 05/30/2024 2:[address] Lower Extremity w Contrast Left (Exam End: 05/30/2024 7:27 PM) Result Value WORKSTATION ID [id number] Impression 1. Occlusion of the popliteal artery [...] have questions please contact the health care provider that requested your imaging first. Electronically signed by: Ignacia Chi MD, [facility] ([phone]), at 05/31/2024 3:33 PM Labs: Recent Results [...] Left Result Value Ref Range WORKSTATION ID [id number] Rapid Drug Screen, Urine (IVAN Request) Result [...] Negative mcL Appearance UA Clear Clear Spec [place] UA >=1.030 (A) 1.005 - 1.030 Color [...] Text Report Department: Vascular Surgery Lab Patient: [id number] (GEOVANNA DIXON) CPT: 45709 Referring Physician: JERRY MARIN Phone: Indications: Left [...] 65 - 199 mg/dL MRSA PCR Screen ([facility]/CGP/APD/[place]) Specimen: Nasopharyngeal Swab Specimen Type->Nasopharyngeal Swab Result Value Ref Range MRSA Result Negative Negative MRSA Interp Methicillin-resistant Staphylococcus aureus (MRSA) is NOT DETECTED The MRSA target DNA sequences (mec and SCC) were not detected within the acceptable ranges using the Xpert MRSA NxG on the GeneXpert Dx System (People and Pages). This suggests the absence of MRSA in the patient specimen submitted for testing. This test is cleared by the U.S. Food and Drug Administration for clinical use and its performance characteristics have been verified by the [facility] at [facility]. This result does not rule out the [...] Process Instructions: There is no in-house vascular manager lab available on weeknights (5pm-8am), weekends, or holidays. IF THIS IS A REQUEST FOR AN EMERGENT STUDY DURING THOSE HOURS, please have the senior provider responsible for the patient page the Vascular Surgery Fellow/Senior Resident youth corrections officer to discuss options. Scheduling Instructions: Questions: Indication for study/signs & symptoms: L poplital artery occlusion and PAD Question to be answered: Adequacy of LLE perfusion Preferred location?: [facility] Arterial Duplex Leg, Unil [VAS32 Custom] 07/03/2024 (Approximate) 01/02/2025 Process Instructions: There is no in-house vascular manager lab available on weeknights (5pm-8am), weekends, or holidays. IF THIS IS A REQUEST FOR AN EMERGENT STUDY DURING THOSE HOURS, please have the senior provider responsible for the patient page the Vascular Surgery Fellow/Senior Resident youth corrections officer to discuss options. Scheduling Instructions: Questions: Indication for study/signs & symptoms: L popliteal occlusion in setting of PAD Question to be answered: adequate arterial flow in lower leg, particularly near site of occlusion Laterality: Left Is there a LEFT LOWER EXTREMITY graft?: No Lower limb left segments: Popliteal Common Femoral Profunda Superficial Femoral Tibial Is there a stent?: No Preferred location?: [facility] Clinics Anticoagulation & Antiplatelet: Anticoagulation: Agent: Xarelto 2.5mg BID Indication: Left popliteal artery occlusion Intended Duration: Indefinitely, will discuss at follow-up appointment Antiplatelet: Agent: Aspirin 81mg Indication: CAD Intended Duration: Indefinitely For questions regarding these medications, please contact Vascular Surgery at [phone]. For issues on weeknights after 5pm and weekends please call [phone] and ask for the Vascular Fellow kuldeep. [...] For any problems or questions please call [phone] For issues on weeknights after 5pm and weekends please call [phone] and ask for the Vascular Fellow youth corrections officer. Vascular Surgery Contact Information: For any problems or questions please call [phone] For issues on weeknights after 5pm and weekends please call [phone] and ask for the Vascular Fellow youth corrections officer. documented in this encounter Discharge Instructions * [...] to have your insulin doses adjusted. Recovery Resources/[address] [address] [email or web address] Hours Wed through Wednesday 8:00am to 2:00 [...] For any problems or questions please call [phone] For issues on weeknights after 5pm and weekends please call [phone] and ask for the Vascular Fellow youth corrections officer. * Attachments The following attachments cannot be sent through Care Everywhere. * Direct Oral Anticoagulants: Non-Vitamin K Antagonist (Estonian) documented in this encounter Medications at Time [...] tablet Take 225 mg by mouth daily. metFORMIN (Glucophage) 500 mg tablet Take 2 [...] 06/07/2024 insulin needles, disposable, 32 gauge x 5/32 NeedleIndications:d iabetes mellitus Inject 1 each subcutaneously 4 times daily. Indications: diabetes 400 each 06/02/2024 07/21/2024 insulin glargine (Lantus) 100 unit/mL (3 mL) pen Inject 35 Units subcutaneously nightly. 3 mL 11 06/02/2024 07/21/2024 methylphenidate (Ritalin) 20 mg tablet Take 20 mg by mouth 3 times daily. 05/02/2024 07/21/2024 aspirin 81 mg EC tablet Take 1 tablet by mouth daily. 30 tablet 11 08/22/2013 08/03/2024 Blood Sugar Diagnostic (FREESTYLE LITE STRIPS) test [...] abuse, narcolepsy/cataplexy, who initially presented to [facility] ED with c/o 3d acute onset left calf pain. CTA revealed short segment popliteal occlusion with distal reconstitution. On arrival to [facility] he is hemodynamically normal on RA. He [...] to date on transfer documentation from [facility]. Active Hospital Problems Diagnosis Critical limb [...] Imaging: ABIs Department: Vascular Surgery Lab Patient: [id number] (GEOVANNA DIXON) CPT: 37681 Referring Physician: JERRY MARIN Phone: Indications: PAD [...] Cards recs Preston Dee MD 06/01/2024 Pager: [phone] * Anabel Castelan MD - 06/01/2024 11:42 [...] 0817 06/01/24 0813 06/01/24 0643 05/31/24 2326 05/31/248 05/31/24 1631 05/31/24 1243 05/31/24 0819 05/31/24 [...] nutritional counseling for which one of our quality control analyst met with him on 05/31. Glargine has [...] with Dr. Reno. Anabel Castelan MD. PGY4 [facility] Endocrinology 20 minutes of this 35 minute [...] abuse, narcolepsy/cataplexy, who initially presented to [facility] ED with c/o 3d acute onset [...] an evening meal which is usually takeout (notch grinder or pizza). Drinks up to 18 cans of Moun tain Dew/day or 1.5 gallons of milk daily. Bindu Ritter RD * Preston Dee MD - 05/31/2024 12:13 PM EDT Vascular Surgery Progress Note Geovanna Dixon Jr. is a 49 y.o. male with PMH of CAD s/p 2V CABG (2012), DM, HTN, HLD, obesity, substance abuse, narcolepsy/cataplexy, who initially presented to [facility] ED with c/o 3d acute onset left calf pain. CTA revealed short segment popliteal occlusion with distal reconstitution. On arrival to [facility] he is hemodynamically normal on RA. He [...] to date on transfer documentation from [facility]. 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 No changes in level of pain [...] Imaging: ABIs Department: Vascular Surgery Lab Patient: [id number] (GEOVANNA DIXON) CPT: 38410 Referring Physician: JERRY MARIN Phone: Indications: PAD [...] concern for possible self-injection using PIV on 7/23 PM soon after his visitor left - Carb control diet - Daily labs replete PRN - ASA, statin, Losartan, and metoprolol per Cards recs Preston Dee MD 05/31/2024 Pager: [phone] * Flip, Anabel Wilson MD - 05/31/2024 [...] islet cell antibodies Will place consult for american indian policy specialist to further discuss nutritional modifications Patient case discussed with Dr. Reno. Anabel Castelan MD PGY4 [facility] Endocrinology 20 minutes of this 35 minute [...] abuse, narcolepsy/cataplexy, who initially presented to [facility] ED with c/o 3d acute onset left calf pain. CTA revealed short segment popliteal occlusion with distal reconstitution. On arrival to [facility] he is hemodynamically normal on RA. He [...] to date on transfer documentation from [facility]. 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 is a 49 y.o. male with PMH of CAD s/p 2V CABG (2012), DM, HTN, HLD, obesity, substance abuse, narcolepsy/cataplexy, who initially presented to [facility] ED with c/o 3d acute onset left calf pain. CTA revealed short segment popliteal occlusion with distal reconstitution. On arrival to [facility] he is hemodynamically normal on RA. He [...] to date on transfer documentation from [facility]. Active Hospital Problems Diagnosis Critical limb [...] Microbiology: ABIs Department: Vascular Surgery Lab Patient: [id number] (GEOVANNA DIXON) CPT: 28960 Referring Physician: JERRY MARIN Phone: Indications: PAD [...] ASA Statin Vibha Benson APRN 05/29/2024 Pager: [phone] documented in this encounter H&P Notes * Lili Tapia MD - 05/28/2024 6:33 PM EDT [facility] Department of Vascular Surgery History & Physical Patient Name: Geovanna Dixon Jr. MR#: [id number] : 1975 Admission Date: 05/28/2024 Indication for Admission: LLE ALI History of Present Illness: Geovanna Dixon Jr. is a 49 y.o. male with PMH of CAD s/p 2V CABG (2012), DM, HTN, HLD, obesity, substance abuse, narcolepsy/cataplexy, who initially presented to [facility] ED with c/o 3d acute onset left calf pain. CTA revealed short segment popliteal occlusion with distal reconstitution. On arrival to [facility] he is hemodynamically normal on RA. He [...] to date on transfer documentation from [facility]. Past Medical History: Past Medical History: [...] GRAFT performed by INNA TOVAR at [facility] MA[facility] OR PRO ENDOSCOPY W/VIDEO-ASST VEIN HARVEST, CABG 01/04/2012 ENDOSCOPIC HARVEST VEIN(S) FOR CABG performed by INNA TOVAR at [facility] OR Home Medications: Current Outpatient [...] abuse, narcolepsy/cataplexy, who initially presented to [facility] ED with c/o 3d acute onset [...] thrombus. Proceed with pre-operative optimization, CT chest Soledad and anticipate OR for revasc pending clinical [...] MD 05/28/2024 Vascular Surgery Service Team pager #[phone] documented in this encounter ED Notes * [...] the Emergency Department as a transfer from [facility] for left foot ischemia. CT angiogram [...] 1820 Vascular surgery recommending heparin drip [phone] paged [phone] Surgery to see 183 WBC: 7.0 1836 RBC: 4.67 1836 Lactate WB: 1.6 1900 Glucose Lvl(!): 286 1900 Creatinine(!): 0.53 No orders to display Procedures Assessment and Plan: 49 y.o. male transferred from [facility] for popliteal artery occlusion resulting in [...] my separate note. 49-year-old male transfer from [facility] for left foot ischemia with CT angiogram [...] Yes/No STROKE ALERT: Last Known Well Time: [place] Stroke Scale: + / - FAST-ED Score: TRAUMA ALERT: T9 Alert Consult Lowest Documented BP Transporting Service: Time of Departure: ETA: * María Ugalde MD - 05/28/2024 4:41 PM EDT . EM attending brief transfer acceptance note: Geovanna Llanos Zack is a 49 y.o. who I accepted in transfer from [facility] for rule out left foot ischemia. [...] abuse, narcolepsy/cataplexy, who initially presented to [facility] ED with c/o 3d acute onset [...] therapeutic upon check with AM labs, continues [id number]/30ml/hr. Pt continues on Telemetry, noted NSR every [...] pain controlled with scheduled and PRN meds, medical claims specialist to be found in [place]. Q4 neurovascular [...] Pain controlled with scheduled and PRN meds, medical claims specialist to be found in [place]. Patient went [...] abuse, narcolepsy/cataplexy, who initially presented to [facility] ED with c/o 3d acute onset [...] from the original note were [place] [phone] CARDIOLOGY CONSULT NOTE Date of Consultation: 05/29/2024 [...] abuse, narcolepsy/cataplexy, who initially presented to [facility] ED with c/o 3d acute onset [...] NSTEMI in 2012, at the time showed CHARGEMASTER SPECIALIST of proximal LAD, CHARGEMASTER SPECIALIST proximal right, 90% LCX. MARTINEZ-LAD patent and [...] Daily heparin (porcine) infusion 1,600 Units/hr (05/29/24 09) lactated Ringers 1,000 mL (05/29/24 0941) Physical [...] Surgical Unit Level 4 Wing D at [facility] Office Visit from 03/08/2012 in Cardiothoracic [...] abuse, narcolepsy/cataplexy, who initially presented to [facility] ED with c/o 3d acute onset left calf pain. CTA revealed short segment popliteal occlusion with distal reconstitution. Cardiology consulted regarding preoperative risk stratification. Vascular surgery plans for surgical revascularization. He has a notable cardiac history listed above, transthoracic echocardiogram notable for mildly reduced LVEF with inferior wall hypokinesis. Thisis explained by his known history of an occluded SVG-RPDA graft with a CHARGEMASTER SPECIALIST of his right coronary artery. He has [...] abuse, narcolepsy/cataplexy who initially presented to [facility] ED with complaints of 3 days of acute left calf pain. CTA revealed short segment popliteal occlusion with distal reconstitution. He was transferred to [facility] on 05/28/2024 for further management. We are being consulted to assist with diabetes management for poorly controlled DM and to provide a review of termite helper diabetes care. Diabetes History: Geovanna Dixon Jr. [...] sec Lactate, whole blood, send to lab ([facility] Result Value Ref Range Lactate WB 1.6 0.5 - 2.2 mmol/L Type and screen ([facility]) Result Value Ref Range ABORH Type A [...] Value Ref Range T&S only valid at [facility] Hosp POCT Glucose Result Value Ref Range [...] distal reconstitution on CTA. While at [facility] patient found to have blood glucose approx 490-500. He was transferred to [facility] on 05/28/2024 for further management. We are being consulted to assist with diabetes management for poorly controlled DM and to provide a review of termite helper diabetes care. Diabetes is not currently well [...] diabetes education as well as nutritional counseling ad terminal makeup operator diabetes care: Medications - Outpatient treatment regimen recommendations pending based on the hospital course. Monitoring - continue BG tid ac & hs Diet - low fat/low carb diet Exercise - weight-bearing exercise 30 min/day, as tolerated Provider - patient requires establishment with new PCP or delicate fabrics presser for continued medication management Thank you for allowing us to provide care for your patient. Anabel Castelan MD [facility] Endocrinology Associated attestation - Karen Reno MD [...] surrogate would be surrogate decision maker per [place] surrogate decision making law. (Only good for 180 days) Any patient receiving care in [place] must abide by [place] law. The hierarchy for surrogate decision making [...] (i) The agent with financial power of trade mark attorney or a conservator appointed in accordance [...] Current DME: none Home Address confirmed as: [address] [place] [address] [facility] [address] Social & Family Supports: All names listed [...] Pertinent/Service Specific Information: Health/Prescription Coverage: Primary Insurance: [employer] MANAGED MEDICARE Payor: [employer] MANAGED MEDICARE / Plan: [employer] MANAGED MEDICARE PPO / Product Type: *No Product type* / Secondary Insurance: N/A ONLY if patient has Medicare A&B - Does this patient have secondary insurance?: No ; Why not?: Costs Prescription Coverage: Yes Preferred Pharmacy: [id number] - [place], [place] - [address] [address] [address] [place] Status: Patient is a : No Primary Care Provider listed: Guanako Gusman MD (Inactive) [phone] Patient/Caregiver Goals of Treatment: How long will [...] Orona RPH - 05/29/2024 4:00 AM EDT [facility] Home Medication List Update for Medication [...] reconciled by the provider. Please contact the [facility] Medication Reconciliation Pharmacist at for any questions. Allen M Vorke, RPH * ED Triage - Debby Chawla [...] SCREEN ([facility]) STAT 05/28/2024 6:20 PM EDT BASIC METABOLIC PANEL STAT 05/28/2024 6:20 PM EDT POCT GLUCOSE Routine 05/28/2024 5:46 PM EDT documented in this encounter Results * (ABNORMAL) POCT Glucose (06/02/2024 4:12 PM EDT) [facility] Glucose, POC 203(H) 65 - 199 mg/dL [facility] Comment: Supplemental ranges: <140 mg/dL before meals <180 mg/dL all other times of the day Blood 06/02/2024 4:12 PM EDT 06/02/2024 4:12 PM EDT Jerry Marin MD POINT OF CARE TEST O GILDA Performing Organization Address [facility]/ZIP Co de Phone Number [facility] [place] [address] * (ABNORMAL) POCT Glucose (06/02/2024 1:47 PM EDT) Glucose, POC 306(H) 65 - 199 mg/dL [facility] Comment: Supplemental ranges: <140 mg/dL before meals <180 mg/dL all other times of the day Blood 06/02/2024 1:47 PM EDT 06/02/2024 1:47 PM EDT Jerry Marin MD POINT OF CARE TEST O GILDA Performing Organization Address [facility] Co de Phone Number [facility] [place] [address] * (ABNORMAL) POCT Glucose (06/02/2024 11:28 AM EDT) Glucose, POC 270(H) 65 - 199 mg/dL [facility] Comment: Supplemental ranges: <140 mg/dL before meals <180 mg/dL all other times of the day Blood 06/02/2024 11:2 8 AM EDT 06/02/2024 11:28 AM EDT Jerry Marin MD POINT OF CARE TEST O GILDA Performing Organization Address [facility] Co de Phone Number [facility] [place] [address] * (ABNORMAL) POCT Glucose (06/02/2024 8:59 AM EDT) Glucose, POC 299(H) 65 - 199 mg/dL [facility] Comment: Supplemental ranges: <140 mg/dL before meals <180 mg/dL all other times of the day Blood 06/02/2024 8:59 AM EDT 06/02/2024 8:59 AM EDT Jerry Marin MD POINT OF CARE TEST O RDERABLES [facility] [place] [address] * (ABNORMAL) Differential, Automated (06/02/2024 1:52 AM EDT) Neutrophil % 75.2 % [facility] Neutrophil Absolute 9.62(H) 1.70 - 6.10 x10(3)/ L [facility] Lymph % 12.7 % [facility] Lymphocytes Abs 1.6 0.9 - 3.2 x10(3)/[facility] Monocyte % 7.8 % [facility] Monocyte Abs 1.0(H) 0.3 - 0.9 x10(3)/ L [facility] Eos % 1.1 % [facility] Eosinophils Abs 0.1 0.0 - 0.4 x10(3)/[facility] Basophil % 0.9 % [facility] Baso Absolute 0.1 0.0 - 0.1 x10(3)/ L [facility] Immature Gran % 2.30 % [facility] Comment: Immature granulocytes(IG's)percentage and absolute count will include metamyelocytes, myelocytes, and promyelocytes. Blood smears from CBCs yielding IG's will be scanned manually for concordance. If this scan disagrees with the automated IG or if promyelocytes are noted, a manual differential will be performed. Immature Gran Absolute 0.29(H) 0.00 - 0.04 x10(3)/mc L [facility] Blood 06/02/2024 1:52 AM EDT 06/02/2024 2:06 AM EDT Narrative Resulting Agency Comment Spec In Lab Lili Tapia MD HEMATOLOGY ORDERA BLES [facility] [place] [address] * (ABNORMAL) Hemogram (06/02/2024 1:52 AM EDT) White Blood Cell 12.8(H) 4.0 - 9.5 x10(3)/mc L [facility] Red Blood Cell 4.56(L) 4.58 - 5.54 x10(6)/mc L [facility] Hemoglobin 13.7 13.7 - 16.5 g/dL [facility] Hematocrit 39.0(L) 40.5 - 48.5 % [facility] Mean Cell Volume 85.5 82.9 - 93.1 fL [facility] Mean Cell Hemoglobin 30.0 27.5 - 32.1 pg [facility] Mean Cell Hemoglobin Concentration 35.1 32.0 - 35.7 g/dL [facility] Platelet 283 145 - 357 x10(3)/mc L [facility] RDW Standard Deviation 35.7(L) 36.0 - 45.0 [facility] RDW coefficient of variation 11.6 11.4 - 13.8 % [facility] Mean Platelet Volume 10.2 7.6 - 12.9 [facility] NRBC% auto 0.0 % [facility] NRBC Absolute 0.000 0.000 - 0.000 x10(3)/mc L [facility] Blood 06/02/2024 1:52 AM EDT 06/02/2024 2:06 AM EDT Narrative Resulting Agency Comment Spec In Lab Lili Tapia MD HEMATOLOGY ORDERA BLES [facility] [place] [address] * Heparin (unfractionated) Level (06/02/2024 1:52 AM EDT) Pathologist [facility] UF Heparin 0.35 IU/mL [facility] Comment: Heparin (anti-Xa) levels [...] Lab Arthur Patel DO HEMATOLOGY ORDERABLE S [facility] [place] [address] * Phosphorus (06/02/2024 1:52 AM EDT) [facility] Phosphorus 3.3 2.5 - 4.5 mg/dL [facility] Blood 06/02/2024 1:52 AM EDT 06/02/2024 2:06 AM EDT Narrative Resulting Agency Comment Spec In Lab Jerry Marin MD CHEMISTRY ORDERABLES [facility] [place] [address] * Magnesium (06/02/2024 1:52 AM EDT) [facility] Magnesium 0.81 0.69 - 1.07 mmol/L [facility] Blood 06/02/2024 1:52 AM EDT 06/02/2024 2:06 AM EDT Narrative Resulting Agency Comment Spec In Lab Jerry Marin MD CHEMISTRY ORDERABLES [facility] [place] [address] * (ABNORMAL) Basic Metabolic Panel (non-fasting) (06/02/2024 1:52 AM EDT) Glucose 165 65 - 199 mg/dL [facility] Comment:Diabetes: >=200 mg/d L plus symptoms Blood Urea Nitrogen 7(L) 10 - 20 mg/dL [facility] Creatinine 0.52(L) 0.80 - 1.50 mg/dL [facility] Sodium 137 135 - 145 mmol/L [facility] Potassium 4.0 3.5 - 5.0 mmol/L [facility] Comment: Please note: ??Patients with WBC >100,000 may have falsely elevated Potassium levels. ??For accurate Potassium quantification in these patients send serum separator tube (gold top) for subsequent determinations. ??Contact the Clinical Chemistry Laboratory if there are any questions. Chloride 102 98 - 107 mmol/L [facility] Carbon Dioxide 23 22 - 31 mmol/L [facility] Anion Gap 12 5 - 15 mmol/L [facility] Calcium 9.5 8.5 - 10.5 mg/dL [facility] Est Glomerular Filtration Rate 123 >=60 mL/min/1. 73 m?? [facility] Comment: This patient's estimated [...] Marin MD CHEMISTRY ORDERABLES Performing Organization Address [facility] Co de Phone Number [facility] [place] [address] * (ABNORMAL) POCT Glucose (06/01/2024 7:45 PM EDT) Glucose, POC 225(H) 65 - 199 mg/dL [facility] Comment: Supplemental ranges: <140 mg/dL before meals <180 mg/dL all other times of the day Blood 06/01/2024 7:45 PM EDT 06/01/2024 7:45 PM EDT Jerry Marin MD POINT OF CARE TEST O RDERABLES Performing Organization Address [facility] Co de Phone Number [facility] [place] [address] * POCT Glucose (06/01/2024 4:45 PM EDT) Glucose, POC 178 65 - 199 mg/dL [facility] Comment: Supplemental ranges: <140 mg/dL before meals <180 mg/dL all other times of the day Blood 06/01/2024 4:45 PM EDT 06/01/2024 4:45 PM EDT Jerry Marin MD POINT OF CARE TEST O GILDA Performing Organization Address [facility] Co de Phone Number [facility] [place] [address] * POCT Glucose (06/01/2024 2:32 PM EDT) Glucose, POC 195 65 - 199 mg/dL [facility] Comment: Supplemental ranges: <140 mg/dL before meals <180 mg/dL all other times of the day Blood 06/01/2024 2:32 PM EDT 06/01/2024 2:32 PM EDT Jerry Marin MD POINT OF CARE TEST O RDERABLES Performing Organization Address [facility] Co de Phone Number [facility] [place] [address] * MRSA PCR Screen ([facility]CGP/APD/NLH) (06/01/2024 1:42 PM EDT) [facility] MRSA PCR Negative Negative [facility] MRSA (Interp) Methicillin-resist ant Staphylococcus aureus (MRSA) is NOT DETECTED The MRSA target DNA sequences (mec and SCC) were not detected within the acceptable ranges using the Xpert MRSA NxG on the GeneXpert Dx System ([employer]). This suggests the absence of MRSA in the patient specimen submitted for testing. This test is cleared by the U.S. Food and Drug Administration for clinical use and its performance characteristics have been verified by the [facility] at [facility]. This result does not rule out the presence of any other organisms. Rare false negative results may occur if MRSA is present at low concentrations with much higher concentrations of other organisms including MRSE or S. aureus with an empty SCC cassette. [facility] Comment: [VERIFIED DATE]06.02.24 Verified By:Gloria Jonas (Electronic Signature) Nasopharyngeal Swab 06/01/20 1:42 PM EDT 06/01/2024 3:11 PM EDT Comment:Specimen Type->Nasop haryngeal Swab Narrative Resulting Agency Comment Spec In Lab Jerry Marin MD MOLECULAR ORDERABLES Performing Organization Address [facility] Co de Phone Number [facility] [place] [address] * (ABNORMAL) POCT Glucose (06/01/2024 11:49 AM EDT) Pathologist [facility] Glucose, POC 264(H) 65 - 199 mg/dL [facility] Comment: Supplemental ranges: <140 mg/dL before meals <180 mg/dL all other times of the day Blood 06/01/2024 11:4 9 AM EDT 06/01/2024 11:49 AM EDT Jerry Marin MD POINT OF CARE TEST O GILDA Performing Organization Address City/[facility]/ZIP Co de Phone Number [facility] [place] [address] * (ABNORMAL) POCT Glucose (06/01/2024 8:17 AM EDT) Glucose, POC 288(H) 65 - 199 mg/dL [facility] Comment: Supplemental ranges: <140 mg/dL before meals <180 mg/dL all other times of the day Blood 06/01/2024 8:17 AM EDT 06/01/2024 8:17 AM EDT Jerry Marin MD POINT OF CARE TEST O GILDA Performing Organization Address [facility] Co de Phone Number [facility] [place] [address] * (ABNORMAL) POCT Glucose (06/01/2024 8:13 AM EDT) Glucose, POC 358(H) 65 - 199 mg/dL [facility] Comment: Supplemental ranges: <140 mg/dL before meals <180 mg/dL all other times of the day Blood 06/01/2024 8:13 AM EDT 06/01/2024 8:13 AM EDT Jerry Marin MD POINT OF CARE TEST O GILDA Performing Organization Address City/[facility]/ZIP Co de Phone Number [facility] [place] [address] * (ABNORMAL) POCT Glucose (06/01/2024 6:43 AM EDT) Glucose, POC 296(H) 65 - 199 mg/dL [facility] Comment: Supplemental ranges: <140 mg/dL before meals <180 mg/dL all other times of the day Blood 06/01/2024 6:43 AM EDT 06/01/2024 6:43 AM EDT Jerry Marin MD POINT OF CARE TEST O RDERABLES [facility] [place] [address] * (ABNORMAL) Differential, Automated (06/01/2024 6:12 AM EDT) [facility] Neutrophil % 73.0 % [facility] Neutrophil Absolute 8.65(H) 1.70 - 6.10 x10(3)/mc L [facility] Lymph % 15.2 % [facility] Lymphocytes Abs 1.8 0.9 - 3.2 x10(3)/mc L [facility] Monocyte % 7.7 % [facility] Monocyte Abs 0.9 0.3 - 0.9 x10(3)/mc L [facility] Eos % 1.4 % [facility] Eosinophils Abs 0.2 0.0 - 0.4 x10(3)/mc L [facility] Basophil % 1.2 % [facility] Baso Absolute 0.1 0.0 - 0.1 x10(3)/mc L [facility] Immature Gran % 1.50 % [facility] Comment: Immature granulocytes(IG's)percentage and absolute count will include metamyelocytes, myelocytes, and promyelocytes. Blood smears from CBCs yielding IG's will be scanned manually for concordance. If this scan disagrees with the automated IG or if promyelocytes are noted, a manual differential will be performed. Immature Gran Absolute 0.18(H) 0.00 - 0.04 x10(3)/mc L [facility] Blood 06/01/2024 6:12 AM EDT 06/01/2024 6:43 AM EDT Narrative Resulting Agency Comment Spec In Lab Lili Tapia MD HEMATOLOGY ORDERA BLES [facility] [place] [address] * (ABNORMAL) Hemogram (06/01/2024 6:12 AM EDT) White Blood Cell 11.8(H) 4.0 - 9.5 x10(3)/[facility] Red Blood Cell 4.66 4.58 - 5.54 x10(6)/ L [facility] Hemoglobin 14.1 13.7 - 16.5 g/dL [facility] Hematocrit 39.6(L) 40.5 - 48.5 % [facility] Mean Cell Volume 85.0 82.9 - 93.1 fL [facility] Mean Cell Hemoglobin 30.3 27.5 - 32.1 pg [facility] Mean Cell Hemoglobin Concentration 35.6 32.0 - 35.7 g/dL [facility] Platelet 264 145 - 357 x10(3)/[facility] RDW Standard Deviation 35.0(L) 36.0 - 45.0 [facility] RDW coefficient of variation 11.4 11.4 - 13.8 % [facility] Mean Platelet Volume 10.8 7.6 - 12.9 fL [facility] NRBC% auto 0.0 % [facility] NRBC Absolute 0.000 0.000 - 0.000 x10(3)/ L [facility] Blood 06/01/2024 6:12 AM EDT 06/01/2024 6:43 AM EDT Narrative Resulting Agency Comment Spec In Lab Lili Tapia MD HEMATOLOGY ORDERA BLES Performing Organization Address City/[facility]/ZIP Co de Phone Number [facility] [place] [address] * Phosphorus (06/01/2024 6:12 AM EDT) Pathologist [facility] Phosphorus 3.2 2.5 - 4.5 mg/dL [facility] Blood 06/01/2024 6:12 AM EDT 06/01/2024 6:43 AM EDT Narrative Resulting Agency Comment Spec In Lab Jerry Marin MD CHEMISTRY ORDERABLES Performing Organization Address [facility] Co de Phone Number [facility] [place] [address] * Magnesium (06/01/2024 6:12 AM EDT) [facility] Magnesium 0.87 0.69 - 1.07 mmol/L [facility] Blood 06/01/2024 6:12 AM EDT 06/01/2024 6:43 AM EDT Narrative Resulting Agency Comment Spec In Lab Jerry Marin MD CHEMISTRY ORDERABLES Performing Organization Address [facility] Co de Phone Number [facility] [place] [address] * (ABNORMAL) Basic Metabolic Panel (non-fasting) (06/01/2024 6:12 AM EDT) Pathologist [facility] Glucose 300(H) 65 - 199 mg/dL [facility] Comment:Diabetes: >=200 mg/d L plus symptoms Blood Urea Nitrogen 7(L) 10 - 20 mg/dL [facility] Creatinine 0.54(L) 0.80 - 1.50 mg/dL [facility] Sodium 135 135 - 145 mmol/L [facility] Potassium 4.1 3.5 - 5.0 mmol/L [facility] Comment: Please note: ??Patients with WBC >100,000 may have falsely elevated Potassium levels. ??For accurate Potassium quantification in these patients send serum separator tube (gold top) for subsequent determinations. ??Contact the Clinical Chemistry Laboratory if there are any questions. Chloride 102 98 - 107 mmol/L [facility] Carbon Dioxide 22 22 - 31 mmol/L [facility] Anion Gap 11 5 - 15 mmol/L [facility] Calcium 9.2 8.5 - 10.5 mg/dL [facility] Est Glomerular Filtration Rate 121 >=60 mL/min/1. 73 m?? [facility] Comment: This patient's estimated [...] Marin MD CHEMISTRY ORDERABLES Performing Organization Address [facility]/ZIP Co de Phone Number [facility] [place] [address] * POCT Glucose (05/31/2024 11:26 PM EDT) Glucose, POC 168 65 - 199 mg/dL [facility] Comment: Supplemental ranges: <140 mg/dL before meals <180 mg/dL all other times of the day Blood 05/31/2024 11:2 6 PM EDT 05/31/2024 11:26 PM EDT Jerry Marin MD POINT OF CARE TEST O RDERABLES Performing Organization Address City/[facility]/ZIP Co de Phone Number [facility] [place] [address] * (ABNORMAL) POCT Glucose (05/31/2024 8:28 PM EDT) Glucose, POC 248(H) 65 - 199 mg/dL [facility] Comment: Supplemental ranges: <140 mg/dL before meals <180 mg/dL all other times of the day Blood 05/31/2024 8:28 PM EDT 05/31/2024 8:28 PM EDT Jerry Marin MD POINT OF CARE TEST O GILDA Performing Organization Address [facility] Co de Phone Number [facility] [place] [address] * POCT Glucose (05/31/2024 4:31 PM EDT) Glucose, POC 187 65 - 199 mg/dL [facility] Comment: Supplemental ranges: <140 mg/dL before meals <180 mg/dL all other times of the day Blood 05/31/2024 4:31 PM EDT 05/31/2024 4:31 PM EDT Jerry Marin MD POINT OF CARE TEST O GILDA Performing Organization Address [facility] Co de Phone Number [facility] [place] [address] * (ABNORMAL) POCT Glucose (05/31/2024 12:43 PM EDT) Glucose, POC 200(H) 65 - 199 mg/dL [facility] Comment: Supplemental ranges: <140 mg/dL before meals <180 mg/dL all other times of the day Blood 05/31/2024 12:4 3 PM EDT 05/31/2024 12:43 PM EDT Jerry Marin MD POINT OF CARE TEST O RDERAHERNANDEZ Performing Organization Address City/[facility]/ZIP Co de Phone Number [facility] [place] [address] * (ABNORMAL) POCT Glucose (05/31/2024 8:19 AM EDT) Glucose, POC 232(H) 65 - 199 mg/dL [facility] Comment: Supplemental ranges: <140 mg/dL before meals <180 mg/dL all other times of the day Blood 05/31/2024 8:19 AM EDT 05/31/2024 8:19 AM EDT Jerry Marin MD POINT OF CARE TEST O RDERABLES Performing Organization Address City/[facility]/ZIP Co de Phone Number [facility] [place] [address] * Duplex for DVT, Leg, Unilat (05/31/2024 7:35 AM EDT) VB Text Report Department: Vascular Surgery Lab Patient: [id number] (GEOVANNA DIXON) CPT: 48050 Referring Physician: JERRY MARIN ?? Phone: Indications: [...] Glucose, POC 261(H) 65 - 199 mg/dL [facility] Comment: Supplemental ranges: <140 mg/dL before meals <180 mg/dL all other times of the day Blood 05/31/2024 6:53 AM EDT 05/31/2024 6:53 AM EDT Jerry Marin MD POINT OF CARE TEST O RDERABLES Performing Organization Address [facility] Co de Phone Number [facility] [place] [address] * (ABNORMAL) Differential, Automated (05/31/2024 5:26 AM EDT) [facility] Neutrophil % 75.1 % [facility] Neutrophil Absolute 9.03(H) 1.70 - 6.10 x10(3)/mc L [facility] Lymph % 14.4 % [facility] Lymphocytes Abs 1.7 0.9 - 3.2 x10(3)/mc L [facility] Monocyte % 6.2 % [facility] Monocyte Abs 0.8 0.3 - 0.9 x10(3)/mc L [facility] Eos % 2.1 % [facility] Eosinophils Abs 0.2 0.0 - 0.4 x10(3)/mc L [facility] Basophil % 1.0 % [facility] Baso Absolute 0.1 0.0 - 0.1 x10(3)/mc L [facility] Immature Gran % 1.20 % [facility] Comment: Immature granulocytes(IG's)percentage and absolute count will include metamyelocytes, myelocytes, and promyelocytes. Blood smears from CBCs yielding IG's will be scanned manually for concordance. If this scan disagrees with the automated IG or if promyelocytes are noted, a manual differential will be performed. Immature Gran Absolute 0.14(H) 0.00 - 0.04 x10(3)/ L [facility] Blood 05/31/2024 5:26 AM EDT 05/31/2024 5:58 AM EDT Narrative Resulting Agency Comment Spec In Lab Lili Tapia MD HEMATOLOGY ORDERA BLES [facility] [place] [address] * (ABNORMAL) Hemogram (05/31/2024 5:26 AM EDT) White Blood Cell 12.0(H) 4.0 - 9.5 x10(3)/[facility] Red Blood Cell 4.66 4.58 - 5.54 x10(6)/[facility] Hemoglobin 13.6(L) 13.7 - 16.5 g/dL [facility] Hematocrit 39.1(L) 40.5 - 48.5 % [facility] Mean Cell Volume 83.9 82.9 - 93.1 [facility] Mean Cell Hemoglobin 29.2 27.5 - 32.1 pg [facility] Mean Cell Hemoglobin Concentration 34.8 32.0 - 35.7 g/dL [facility] Platelet 246 145 - 357 x10(3)/ L [facility] RDW Standard Deviation 35.0(L) 36.0 - 45.0 [facility] RDW coefficient of variation 11.5 11.4 - 13.8 % [facility] Mean Platelet Volume 11.9 7.6 - 12.9 [facility] NRBC% auto 0.0 % [facility] NRBC Absolute 0.000 0.000 - 0.000 x10(3)/ L [facility] Blood 05/31/2024 5:26 AM EDT 05/31/2024 5:58 AM EDT Narrative Resulting Agency Comment Spec In Lab Lili Tapia MD HEMATOLOGY ORDERA BLES Performing Organization Address [facility]/ZIP Co de Phone Number [facility] [place] [address] * Heparin (unfractionated) Level (05/31/2024 5:26 AM EDT) UF Heparin 0.36 IU/mL [facility] Comment: Specimen drawn more [...] DO HEMATOLOGY ORDERABLE S Performing Organization Address City/[facility]/ZIP Co de Phone Number [facility] [place] [address] * Phosphorus (05/31/2024 5:26 AM EDT) Phosphorus 3.1 2.5 - 4.5 mg/dL [facility] Blood 05/31/2024 5:26 AM EDT 05/31/2024 5:58 AM EDT Narrative Resulting Agency Comment Spec In Lab Jerry Marin MD CHEMISTRY ORDERABLES Performing Organization Address City/[facility]/ZIP Co de Phone Number [facility] [place] [address] * Magnesium (05/31/2024 5:26 AM EDT) Pathologist [facility] Magnesium 0.83 0.69 - 1.07 mmol/L [facility] Blood 05/31/2024 5:26 AM EDT 05/31/2024 5:58 AM EDT Narrative Resulting Agency Comment Spec In Lab Jerry Marin MD CHEMISTRY ORDERABLES Performing Organization Address [facility] Co de Phone Number [facility] [place] [address] * (ABNORMAL) Basic Metabolic Panel (non-fasting) (05/31/2024 5:26 AM EDT) Glucose 273(H) 65 - 199 mg/dL [facility] Comment:Diabetes: >=200 mg/d L plus symptoms Blood Urea Nitrogen 7(L) 10 - 20 mg/dL [facility] Creatinine 0.55(L) 0.80 - 1.50 mg/dL [facility] Sodium 133(L) 135 - 145 mmol/L [facility] Potassium 3.9 3.5 - 5.0 mmol/L [facility] Comment: Please note: ??Patients with WBC >100,000 may have falsely elevated Potassium levels. ??For accurate Potassium quantification in these patients send serum separator tube (gold top) for subsequent determinations. ??Contact the Clinical Chemistry Laboratory if there are any questions. Chloride 99 98 - 107 mmol/L [facility] Carbon Dioxide 22 22 - 31 mmol/L [facility] Anion Gap 12 5 - 15 mmol/L [facility] Calcium 9.0 8.5 - 10.5 mg/dL [facility] Est Glomerular Filtration Rate 121 >=60 mL/min/1. 73 m?? [facility] Comment: This patient's estimated [...] In Lab Jerry Marin MD CHEMISTRY ORDERABLES [facility] [place] [address] * LDL Cholesterol, Direct (05/31/2024 5:26 AM EDT) Pathologist [facility] LDL Cholesterol, Direct 86 mg/dL [facility] Comment: Desirable: ? <100 mg/dL Above Desirable: 100-129 mg/dL Borderline High: 130-159 mg/dL High: ?160-189 mg/dL Very High: ? >yf=395 mg/dL If not reaching LDL goals on [...] In Lab Jerry Marin MD CHEMISTRY ORDERABLES [facility] [place] [address] * HDL/Cholesterol Profile (05/31/2024 5:26 AM EDT) Cholesterol, Total 156 mg/dL [facility] Comment: Desirable: ? <200 mg/dL Borderline High: 200-239 mg/dL Higher: ?>gi=247 mg/dL HDL Cholesterol 33 mg/dL [facility] Comment: Females: High Risk: <50 mg/dL Males: High Risk: <40 mg/dL Lipid Interpretation See Note [facility] Comment: It is important [...] ACC/AHA Guidelines (most recently Johann et al. [facility] 08/11/22): For individuals with atherosclerotic cardiovascular disease (ASCVD)or LDL >zo=435 mg/dL, use a high-intensity statin (40-80 mg [...] In Lab Jerry Marin MD CHEMISTRY ORDERABLES [facility] [place] [address] * (ABNORMAL) Rapid Drug Screen w/o Confirmation, Urine (05/31/2024 5:00 AM EDT) Barbiturates Screen, Urine None Detected None Detected [facility] Comment: The barbiturate screen [...] Benzodiazepines Screen, Urine None Detected None Detected [facility] [facility] Comment: The benzodiazepines screen [...] Cocaine Screen, Urine Presumptive Pos(A) None Detected [facility] Comment: The cocaine metabolites screen detects benzoylecgonine (Cocaine Metabolite) at concentrations >150 ng/mL. A ? Presumptive Positive? result indicates that the screening result was positive but has not yet been confirmed by a highly-specific method. As with any screen, occasional false positive results from cross-reacting substances may occur. Not for Medico-Legal Purposes. Methadone Metabolites Screen, Urine None Detected None Detected [facility] Comment: The methadone metabolite screen detects EDDP (major methadone metabolite) at concentrations >100 ng/mL. A ? Presumptive Positive? result indicates that the screening result was positive but has not yet been confirmed by a highly-specific method. As with any screen, occasional false positive results from cross-reacting substances may occur. Not for Medico-Legal Purposes. Opiate Screen, Urine None Detected None Detected [facility] Comment: The opiates screen [...] Cannabinoid Screen, Urine None Detected None Detected [facility] Comment: The marijuana metabolites screen detects the THC metabolite (48-bzj-1-carboxy-delta 9-THC) at concentrations >20 ng/mL. A ? Presumptive Positive? result indicates that the screening result was positive but has not yet been confirmed by a highly-specific method. As with any screen, occasional false positive results from cross-reacting substances may occur. Not for Medico-Legal Purposes. Oxycodone Screen, Urine Presumptive Pos(A) None Detected [facility] Comment: The oxycodone screen detects oxycodone and oxymorphone at concentrations >100 ng/mL. A ? Presumptive Positive? result indicates that the screening result was positive but has not yet been confirmed by a highly-specific method. As with any screen, occasional false positive results from cross-reacting substances may occur. Not for Medico-Legal Purposes. Buprenorphine Screen, Urine None Detected None Detected [facility] Comment: The buprenorphine screen [...] characteristics of this test were determined by [facility] in accordance with CLIA requirements. This laboratory is qualified under CLIA to perform high-complexity testing. Fentanyl Screen, Urine None Detected None Detected [facility] Comment: The fentanyl screen [...] characteristics of this test were determined by [facility] in accordance with CLIA requirements. This laboratory is qualified under CLIA to perform high-complexity testing. Tricyclics Screen, Urine Presumptive Pos(A) None Detected [facility] Comment: The tricyclics screen [...] characteristics of this test were determined by [facility] in accordance with CLIA requirements. This laboratory is qualified under CLIA to perform high-complexity testing. Ethanol Screen, Urine None Detected None Detected [facility] Comment:This urine ethanol a ssay detects ethanol at concentrations >/= 100 mg/L. Amphetamines Screen, Urine None Detected None Detected [facility] Comment: The amphetamine screen detects d-amphetamine and d-methamphetamine at concentrations >300 ng/mL. A ? Presumptive Positive? result indicates that the screening result was positive but has not yet been confirmed by a highly-specific method. As with any screen, occasional false positive results from cross-reacting substances may occur. Not for Medico-Legal Purposes. Creatinine Specimen Validity Test, Urine 58 >=20 mg/dL [facility] Chromate Specimen Validity Test, Urine <2.0 <=49.9 mg/L [facility] Nitrite Specimen Validity Test, Urine <50 <=499 mg/L [facility] Oxidant Specimen Validity Test, Urine 10 <=199 mg/L [facility] pH Specimen Validity Test, Urine 6.8 3.0 - 10.9 [facility] Adulterants Screen, Urine None Detected None Detected [facility] Comment:No adulteration of t his urine sample was detected. Urine 05/31/2024 5:00 AM EDT 05/31/2024 5:31 AM EDT Narrative Resulting Agency Comment Spec In Lab Rubio Grimaldo MD CHEMISTRY ORDERABL ES [facility] [place] [phone] * (ABNORMAL) Urinalysis without microscopic (05/31/2024 5:00 AM EDT) Glucose, Urine Dipstick >=1000(Criti masoud) Negative mg/dL [facility] Comment: Urinalysis result NOT critical without a combination of Glucose greater than or equal to 500 mg/dL AND Ketones greater than or equal to 80 mg/dL Protein, Urine Dipstick Negative Negative mg/dL [facility] Bilirubin, Urine Dipstick Negative Negative mg/dL [facility] Comment: Clinical correlation required for positive Urine Bilirubin results as false positive may occur with some drugs and drug related products. If a false positive is suspected a serum total bilirubin should be considered if clinically indicated. Urobilinogen, Urine Dipstick Normal Normal mg/dL [facility] pH, Urn (dipstick) 7.0 5.0 - 8.0 [facility] Blood, Urine Dipstick Negative Negative mg/dL [facility] Ketone, Urine Dipstick Negative Negative mg/dL [facility] Nitrite, Urine Dipstick Negative Negative [facility] Leukocytes, Urine Dipstick Negative Negative mcL [facility] Appearance, Urine Dipstick Clear Clear [facility] Specific [place] Urine Automated >=1.030(A) 1.005 - 1.030 [facility] Color, Urine Dipstick Yellow Yellow [facility] Urine 05/31/2024 5:00 AM EDT 05/31/2024 5:31 AM EDT Narrative Resulting Agency Comment Spec In Lab Jerry Marin MD URINE ORDERABLES Performing Organization Address [facility] de Phone Number [facility] [place] [address] * Rapid Drug Screen, Urine (IVAN Request) (05/31/2024 5:00 AM EDT) Pathologist [employer] IVAN Conf Requested No [facility] IVAN Requested See Comment [facility] Comment:Refer to Rapid Drug Screen w/o Confirmation, Urine for results. Urine 05/31/2024 5:00 AM EDT 05/31/2024 5:31 AM EDT Narrative Resulting Agency Comment Spec In Lab Jerry Marin MD URINE ORDERABLES Performing Organization Address [facility] Co de Phone Number [facility] [place] [phone] * CT Lower Extremity w Contrast Left (05/30/2024 7:27 PM EDT) [employer] WORKSTATION ID [id number] [facility] Anatomical Region Laterality Modality Hip, Leg, Knee, [...] have questions please contact the health care provider that requested your imaging first. ? Electronically signed by: Ignacia Chi MD, [facility] ([phone]), at 05/31/2024 3:33 PM Narrative 05/31/2024 3:33 [...] who have questions please contactthe health care provider that requested your imaging first. Electronically signed by: Ignacia Chi MD, [facility]([phone]), at 05/31/2024 3:33 PM Jerry Marin MD IMG CT ORDERABLES * POCT Glucose (05/30/2024 5:41 PM EDT) Glucose, POC 164 65 - 199 mg/dL [facility] Comment: Supplemental ranges: <140 mg/dL before meals <180 mg/dL all other times of the day Blood 05/30/2024 5:41 PM EDT 05/30/2024 5:41 PM EDT Jerry Marin MD POINT OF CARE TEST O RDERABLES Performing Organization Address [facility] Co de Phone Number [facility] [place] [address] * Phosphorus (05/30/2024 4:47 PM EDT) Phosphorus 3.8 2.5 - 4.5 mg/dL [facility] Blood 05/30/2024 4:47 PM EDT 05/30/2024 4:58 PM EDT Narrative Resulting Agency Comment Spec In Lab Jerry Marin MD CHEMISTRY ORDERABLES Performing Organization Address [facility]/State/ZIP Co de Phone Number [facility] [place] [address] * Magnesium (05/30/2024 4:47 PM EDT) Magnesium 0.86 0.69 - 1.07 mmol/L [facility] Blood 05/30/2024 4:47 PM EDT 05/30/2024 4:58 PM EDT Narrative Resulting Agency Comment Spec In Lab Jerry Marin MD CHEMISTRY ORDERABLES [facility] [place] [address] * (ABNORMAL) Basic Metabolic Panel (non-fasting) (05/30/2024 4:47 PM EDT) Glucose 192 65 - 199 mg/dL [facility] Comment:Diabetes: >=200 mg/d L plus symptoms Blood Urea Nitrogen 7(L) 10 - 20 mg/dL [facility] Creatinine 0.58(L) 0.80 - 1.50 mg/dL [facility] Sodium 134(L) 135 - 145 mmol/L [facility] Potassium 3.9 3.5 - 5.0 mmol/L [facility] Comment: Please note: ??Patients with WBC >100,000 may have falsely elevated Potassium levels. ??For accurate Potassium quantification in these patients send serum separator tube (gold top) for subsequent determinations. ??Contact the Clinical Chemistry Laboratory if there are any questions. Chloride 99 98 - 107 mmol/L [facility] Carbon Dioxide 24 22 - 31 mmol/L [facility] Anion Gap 11 5 - 15 mmol/L [facility] Calcium 9.1 8.5 - 10.5 mg/dL [facility] Est Glomerular Filtration Rate 119 >=60 mL/min/1. 73 m?? [facility] Comment: This patient's estimated [...] Marin MD CHEMISTRY ORDERABLES Performing Organization Address [facility] Co de Phone Number [facility] [place] [address] * (ABNORMAL) POCT Glucose (05/30/2024 12:42 PM EDT) [employer] Glucose, POC 200(H) 65 - 199 mg/dL [facility] Comment: Supplemental ranges: <140 mg/dL before meals <180 mg/dL all other times of the day Blood 05/30/2024 12:4 2 PM EDT 05/30/2024 12:42 PM EDT Jerry Marin MD POINT OF CARE TEST O RDERABLES Performing Organization Address [facility] Co nc Phone Number [facility] [place] [address] * NM Pharmacologic Stress CT Component (05/30/2024 11:20 AM EDT) [employer] WORKSTATION ID [id number] RAD Anatomical Region Laterality Modality Nuclear Medicine [...] have questions please contact the health care provider that requested your imaging first. ? Electronically signed by: Angel Oliva MD, [facility] ([phone]), at 05/30/2024 2:34 PM Procedure Note Angel [...] who have questions please contactthe health care provider that requested your imaging first. Electronically signed by: Angel Oliva MD, [facility]([phone]), at 05/30/2024 2:34 PM Jerry Marin MD IMG [place] ORDERABLES * Nuclear Pharmacologic Stress Cardiology (05/30/2024 10:48 AM EDT) Anatomical Region Laterality Modality Other Jerry Marin MD CARDIAC SERVICES ORD ERABLES * NM Pharmacologic Stress and Rest Myocardial Perfusion (05/30/2024 10:40 AM EDT) WORKSTATION ID [id number] [facility] Anatomical Region Laterality Modality Nuclear Medicine Impressions [...] have questions please contact the health care provider that requested your imaging first. ? Electronically signed by: Angel Oliva MD, [facility] ([phone]), at 05/30/2024 2:33 PM Narrative 05/30/2024 2:33 [...] who have questions please contactthe health care provider that requested your imaging first. Electronically signed by: Angel Oliva MD, [facility]([phone]), at 05/30/2024 2:33 PM Jerry Marin MD IMG [place] ORDERABLES * (ABNORMAL) POCT Glucose (05/30/2024 7:49 AM EDT) Glucose, POC 216(H) 65 - 199 mg/dL [facility] Comment: Supplemental ranges: <140 mg/dL before meals <180 mg/dL all other times of the day Blood 05/30/2024 7:49 AM EDT 05/30/2024 7:49 AM EDT Jerry Marin MD POINT OF CARE TEST O RDERABLES [facility] [place] [address] * (ABNORMAL) POCT Glucose (05/30/2024 6:39 AM EDT) Glucose, POC 238(H) 65 - 199 mg/dL [facility] Comment: Supplemental ranges: <140 mg/dL before meals <180 mg/dL all other times of the day Blood 05/30/2024 6:39 AM EDT 05/30/2024 6:39 AM EDT Jerry Marin MD POINT OF CARE TEST O RDERABLES [facility] [place] [address] * (ABNORMAL) Differential, Automated (05/30/2024 12:39 AM EDT) Neutrophil % 68.3 % [facility] Neutrophil Absolute 6.33(H) 1.70 - 6.10 x10(3)/mc L [facility] Lymph % 21.9 % [facility] Lymphocytes Abs 2.0 0.9 - 3.2 x10(3)/mc L [facility] Monocyte % 6.1 % [facility] Monocyte Abs 0.6 0.3 - 0.9 x10(3)/mc L [facility] Eos % 2.5 % [facility] Eosinophils Abs 0.2 0.0 - 0.4 x10(3)/mc L [facility] Basophil % 0.8 % [facility] Baso Absolute 0.1 0.0 - 0.1 x10(3)/mc L [facility] Immature Gran % 0.40 % [facility] Comment: Immature granulocytes(IG's)percentage and absolute count will include metamyelocytes, myelocytes, and promyelocytes. Blood smears from CBCs yielding IG's will be scanned manually for concordance. If this scan disagrees with the automated IG or if promyelocytes are noted, a manual differential will be performed. Immature Gran Absolute 0.04 0.00 - 0.04 x10(3)/mc L [facility] Blood 05/30/2024 12:3 9 AM EDT 05/30/2024 12:54 AM EDT Narrative Resulting Agency Comment Spec In Lab Lili Tapia MD HEMATOLOGY ORDERA BLES [facility] [place] [address] * (ABNORMAL) Hemogram (05/30/2024 12:39 AM EDT) White Blood Cell 9.3 4.0 - 9.5 x10(3)/[facility] Red Blood Cell 4.51(L) 4.58 - 5.54 x10(6)/ L [facility] Hemoglobin 13.3(L) 13.7 - 16.5 g/dL [facility] Hematocrit 38.3(L) 40.5 - 48.5 % [facility] Mean Cell Volume 84.9 82.9 - 93.1 [facility] Mean Cell Hemoglobin 29.5 27.5 - 32.1 pg [facility] Mean Cell Hemoglobin Concentration 34.7 32.0 - 35.7 g/dL [facility] Platelet 193 145 - 357 x10(3)/[facility] RDW Standard Deviation 35.1(L) 36.0 - 45.0 [facility] RDW coefficient of variation 11.4 11.4 - 13.8 % [facility] Mean Platelet Volume 11.4 7.6 - 12.9 [facility] NRBC% auto 0.0 % [facility] NRBC Absolute 0.000 0.000 - 0.000 x10(3)/[facility] Blood 05/30/2024 12:3 9 AM EDT 05/30/2024 12:54 AM EDT Narrative Resulting Agency Comment Spec In Lab Lili Tapia MD HEMATOLOGY ORDERA BLES Performing Organization Address City/[facility]/ZIP Co de Phone Number [facility] [place] [address] * Phosphorus (05/30/2024 12:39 AM EDT) Phosphorus 2.9 2.5 - 4.5 mg/dL [facility] Blood 05/30/2024 12:3 9 AM EDT 05/30/2024 12:54 AM EDT Narrative Resulting Agency Comment Spec In Lab Jerry Marin MD CHEMISTRY ORDERABLES Performing Organization Address [facility] Co de Phone Number [facility] [place] [address] * Magnesium (05/30/2024 12:39 AM EDT) Magnesium 0.82 0.69 - 1.07 mmol/L [facility] Blood 05/30/2024 12:3 9 AM EDT 05/30/2024 12:54 AM EDT Narrative Resulting Agency Comment Spec In Lab Jerry Marin MD CHEMISTRY ORDERABLES Performing Organization Address [facility] Co de Phone Number [facility] [place] [address] * (ABNORMAL) Basic Metabolic Panel (non-fasting) (05/30/2024 12:39 AM EDT) Glucose 383(H) 65 - 199 mg/dL [facility] Comment:Diabetes: >=200 mg/d L plus symptoms Blood Urea Nitrogen 9(L) 10 - 20 mg/dL [facility] Creatinine 0.56(L) 0.80 - 1.50 mg/dL [facility] Sodium 132(L) 135 - 145 mmol/L [facility] Potassium 4.2 3.5 - 5.0 mmol/L [facility] Comment: Please note: ??Patients with WBC >100,000 may have falsely elevated Potassium levels. ??For accurate Potassium quantification in these patients send serum separator tube (gold top) for subsequent determinations. ??Contact the Clinical Chemistry Laboratory if there are any questions. Chloride 98 98 - 107 mmol/L [facility] Carbon Dioxide 22 22 - 31 mmol/L [facility] Anion Gap 12 5 - 15 mmol/L [facility] Calcium 8.7 8.5 - 10.5 mg/dL [facility] Est Glomerular Filtration Rate 120 >=60 mL/min/1. 73 m?? [facility] Comment: This patient's estimated [...] In Lab Jerry Marin MD CHEMISTRY ORDERABLES [facility] [place] [address] * Heparin (unfractionated) Level (05/30/2024 12:39 AM EDT) UF Heparin 0.51 IU/mL [facility] Comment: Heparin (anti-Xa) levels [...] DO HEMATOLOGY ORDERABLE S Performing Organization Address [facility]/ZIP Co de Phone Number [facility] [place] [address] * Lower extremity vein map, bilat (05/29/2024 8:01 PM EDT) VB Text Report Department: Vascular Surgery Lab Patient: [id number] (GEOVANNA DIXON) CPT: 76501 Referring Physician: JERRY MARIN ?? Phone: Indications: [...] Text Report Department: Vascular Surgery Lab Patient: [id number] (GEOVANNA DIXON) CPT: 61387 Referring Physician: JERRY MARIN ?? Phone: Indications: [...] Marin MD VASCULAR ORDERABLES Performing Organization Address [facility] Co de Phone Number [id number] * Islet Antigen 2 Antibody (05/29/2024 7:55 PM EDT) Ia-2 Ab (MARCH) 0.00 <=0.02 nmol/L [facility] Comment: ADDITIONAL INFORMATION This test was developed and its performance characteristics determined by [facility] in a manner consistent with CLIA requirements. This test has not been cleared or approved by the U.S. Food and Drug Administration. Test Performed by: [facility] [place] [address] Zinc Chloride Operator: Varun Steen Ph.D.; CLIA# [id number] Blood 05/29/2024 7:55 PM EDT 05/30/2024 8:43 AM EDT Narrative Resulting Agency Comment Spec In Lab Jerry Marin MD CHEMISTRY ORDERABLES Performing Organization Address City/[facility] Co de Phone Number [facility] [place] [address] * TSH (05/29/2024 7:55 PM EDT) Thyroid Stimulating Hormone 1.03 0.27 - 4.20 mcIU/mL [facility] Comment: Reference Interval (mcIU/mL): Females: ??First Trimester: 0.23-3.88 ??Second Trimester: 0.22-3.90 ??Third Trimester: 0.44-4.66 Blood 05/29/2024 7:55 PM EDT 05/29/2024 8:00 PM EDT Narrative Resulting Agency Comment Spec In Lab Jerry Marin MD CHEMISTRY ORDERABLES Performing Organization Address [facility] de Phone Number [facility] [place] [address] * GAD65 Antibody Assay (05/29/2024 7:55 PM EDT) Gad65 Ab (MARCH) 0.00 <=0.02 nmol/L [facility] Comment: ADDITIONAL INFORMATION This test was developed and its performance characteristics determined by [facility] in a manner consistent with CLIA requirements. This test has not been cleared or approved by the U.S. Food and Drug Administration. Test Performed by: [facility] [place] [address] Zinc Chloride Operator: Varun Steen Ph.D.; CLIA# [id number] Blood 05/29/2024 7:55 PM EDT 05/30/2024 8:43 AM EDT Narrative Resulting Agency Comment Spec In Lab Jerry Marin MD LAB SEND OUT ORDERAB LES Performing Organization Address [facility] de Phone Number [facility] [place] [address] * Heparin (unfractionated) Level (05/29/2024 5:35 PM EDT) Pathologist [facility] UF Heparin 0.50 IU/mL [facility] Comment: Heparin (anti-Xa) levels [...] DO HEMATOLOGY ORDERABLE S Performing Organization Address [facility] Co de Phone Number [facility] [place] [address] * (ABNORMAL) POCT Glucose (05/29/2024 4:12 PM EDT) Glucose, POC 235(H) 65 - 199 mg/dL [facility] Comment: Supplemental ranges: <140 mg/dL before meals <180 mg/dL all other times of the day Blood 05/29/2024 4:12 PM EDT 05/29/2024 4:12 PM EDT Jerry Marin MD POINT OF CARE TEST O RDERABLES Performing Organization Address [facility] Co de Phone Number [facility] [place] [address] * EKG 12 Lead (05/29/2024 2:51 PM EDT) Ventricular rate 85 BPM MUSE SYSTEM Atrial Rate 85 BPM MUSE SYSTEM P-R Interval 156 ms MUSE SYSTEM QRS Duration 114 ms MUSE SYSTEM Q-T Interval 384 ms MUSE SYSTEM QTC Calculated (Bezet) 456 ms MUSE SYSTEM Calculated P [place] 16 degrees MUSE SYSTEM Calculated R [place] 21 degrees MUSE SYSTEM Calculated T [place] 15 degrees MUSE SYSTEM INTERPRETATION Normal sinus rhythm Normal ECG When compared with ECG of 28-MAY-2024 19:54, Premature ventricular complexes are no longer Present Confirmed by MD Dian, Asad ([id number]) on 05/30/2024 1:27:54 PM MUSE SYSTEM 05/29/2024 2:51 PM EDT 05/30/2024 1:27 PM EDT Vibha Benson APRN ECG ORDERABLES MUSE SYSTEM * ECHO COMPLETE W CONTRAST (05/29/2024 1:29 PM EDT) Anatomical Region Laterality Modality Cardiac Other 05/29/2024 10:3 3 AM EDT Narrative 05/29/2024 2:27 PM EDT [address] [place] [address] ? Echocardiogram Report Name: GEOVANNA DIXON JR. ? Study Date: 05/29/2024 10:33 AM ? Patient Location: [id number] A : 1975 ? Height: 178 cm ? Account: [id number] Age: 49 yrs ? Weight: 102 kg Gender: Male ?BSA: 2.2 m2 Ordering Physician: JERRY MARIN Referring Physician: KAM SKINNER Performed By: Melina Marinelli RDCS Reason For Study: Limb ischemia Exam Location: [facility]. Interpretation Summary -Left ventricular systolic function is mildly reduced. The left ventricular ejection fraction is 47% by Stacy's biplane. There is akinesis of the inferior wall. -The right ventricle is of normal size. Right ventricular systolic function is normal. -No significant valvular disease noted on this study. -Compared with the previous echo performed on 08/21/23, the ejection fraction has decreased. Procedure Complete-[id number]. An agitated saline bubble contrast study was [...] Deandre Jones MD - 05/29/2024 [address] [place] [address] Echocardiogram Report Name: GEOVANNA DIXON JR. Study Date: 410:33 AM Patient Location: [id number] A : 1975 Height: 178 cm Account: [id number] Age: 49 yrs Weight: 102 kg Gender: Male BSA: 2.2 m2 Ordering Physician: JERRY MARIN Referring Physician: KAM SKINNER Performed By: Melina Marinelli RDCS Reason For Study: Limb ischemia Exam Location: [facility]. Interpretation Summary -Left ventricular systolic function is mildly reduced. The leftventricular ejection fraction is 47% by Stacy's biplane. There is akinesis of theinferior wall. -The right ventricle is of normal size. Right ventricular systolicfunction is normal. -No significant valvular disease noted on this study. -Compared with the previous echo performed on 08/21/23, the ejectionfraction has decreased. Procedure Complete-[id number]. An agitated saline bubble contrast study was [...] (ABNORMAL) POCT Glucose (05/29/2024 1:23 PM EDT) [facility] Glucose, POC 249(H) 65 - 199 mg/dL [facility] Comment: Supplemental ranges: <140 mg/dL before meals <180 mg/dL all other times of the day Blood 05/29/2024 1:23 PM EDT 05/29/2024 1:23 PM EDT Jerry Marin MD POINT OF CARE TEST O RDERABLES [facility] [place] [address] * Heparin (unfractionated) Level (05/29/2024 9:52 AM EDT) [facility] UF Heparin 0.76 IU/mL [facility] Comment: Heparin (anti-Xa) levels [...] Lab Arthur Patel DO HEMATOLOGY ORDERABLE S [facility] [place] [address] * POCT Glucose (05/29/2024 8:48 AM EDT) Glucose, POC 157 65 - 199 mg/dL [facility] Comment: Supplemental ranges: <140 mg/dL before meals <180 mg/dL all other times of the day Blood 05/29/2024 8:48 AM EDT 05/29/2024 8:48 AM EDT Jerry Marin MD POINT OF CARE TEST O GILDA Performing Organization Address [facility]/ZIP Co de Phone Number [facility] [place] [address] * (ABNORMAL) POCT Glucose (05/29/2024 4:00 AM EDT) Glucose, POC 218(H) 65 - 199 mg/dL [facility] Comment: Supplemental ranges: <140 mg/dL before meals <180 mg/dL all other times of the day Blood 05/29/2024 4:00 AM EDT 05/29/2024 4:00 AM EDT Jerry Marin MD POINT OF CARE TEST O DIMITRIERAHERNANDEZ Performing Organization Address [facility]/ZIP Co de Phone Number [facility] [place] [address] * (ABNORMAL) POCT Glucose (05/29/2024 2:47 AM EDT) Glucose, POC 214(H) 65 - 199 mg/dL [facility] Comment: Supplemental ranges: <140 mg/dL before meals <180 mg/dL all other times of the day Blood 05/29/2024 2:47 AM EDT 05/29/2024 2:47 AM EDT Jerry Marin MD POINT OF CARE TEST O RDERABLES Performing Organization Address [facility] Co de Phone Number [facility] [place] [address] * (ABNORMAL) Hemoglobin A1c (05/29/2024 2:13 AM EDT) Hemoglobin A1c 12.6(H) 4.3 - 5.6 % [facility] Comment: Reference Range: 4.3 [...] Mellitus, Diabetes Care 2013; 36: Suppl. 1, S6774 Estimated Average Glucose 316 mg/dL [facility] Blood 05/29/2024 2:13 AM EDT 05/29/2024 8:03 AM EDT Narrative Resulting Agency Comment Spec In Lab Jerry Marin MD CHEMISTRY ORDERABLES Performing Organization Address [facility] Co de Phone Number [facility] [place] [address] * (ABNORMAL) Differential, Automated (05/29/2024 2:13 AM EDT) Neutrophil % 54.8 % [facility] Neutrophil Absolute 5.63 1.70 - 6.10 x10(3)/mc L [facility] Lymph % 34.0 % [facility] Lymphocytes Abs 3.5(H) 0.9 - 3.2 x10(3)/mc L [facility] Monocyte % 6.7 % [facility] Monocyte Abs 0.7 0.3 - 0.9 x10(3)/[facility] Eos % 3.3 % [facility] Eosinophils Abs 0.3 0.0 - 0.4 x10(3)/[facility] Basophil % 0.9 % [facility] Baso Absolute 0.1 0.0 - 0.1 x10(3)/[facility] Immature Gran % 0.30 % [facility] Comment: Immature granulocytes(IG's)percentage and absolute count will include metamyelocytes, myelocytes, and promyelocytes. Blood smears from CBCs yielding IG's will be scanned manually for concordance. If this scan disagrees with the automated IG or if promyelocytes are noted, a manual differential will be performed. Immature Gran Absolute 0.03 0.00 - 0.04 x10(3)/[facility] Blood 05/29/2024 2:13 AM EDT 05/29/2024 2:27 AM EDT Narrative Resulting Agency Comment Spec In Lab Lili Tapia MD HEMATOLOGY ORDERA BLES [facility] [place] [address] * (ABNORMAL) Hemogram (05/29/2024 2:13 AM EDT) White Blood Cell 10.3(H) 4.0 - 9.5 x10(3)/[facility] Red Blood Cell 4.74 4.58 - 5.54 x10(6)/[facility] Hemoglobin 14.2 13.7 - 16.5 g/dL [facility] Hematocrit 40.4(L) 40.5 - 48.5 % [facility] Mean Cell Volume 85.2 82.9 - 93.1 fL [facility] Mean Cell Hemoglobin 30.0 27.5 - 32.1 pg [facility] Mean Cell Hemoglobin Concentration 35.1 32.0 - 35.7 g/dL [facility] Platelet 158 145 - 357 x10(3)/mc L [facility] RDW Standard Deviation 35.4(L) 36.0 - 45.0 fL [facility] RDW coefficient of variation 11.4 11.4 - 13.8 % [facility] Mean Platelet Volume 10.6 7.6 - 12.9 fL [facility] NRBC% auto 0.0 % [facility] NRBC Absolute 0.000 0.000 - 0.000 x10(3)/mc L [facility] Blood 05/29/2024 2:13 AM EDT 05/29/2024 2:27 AM EDT Narrative Resulting Agency Comment Spec In Lab Lili Tapia MD HEMATOLOGY ORDERA BLES [facility] [place] [id number] * (ABNORMAL) Heparin (unfractionated) Level (05/29/2024 2:13 AM EDT) UF Heparin 1.19(Crit ical) IU/mL [facility] Comment: Critical Result called [...] DO HEMATOLOGY ORDERABLE S Performing Organization Address [facility] Co de Phone Number [facility] [place] [address] * Phosphorus (05/29/2024 2:13 AM EDT) Phosphorus 2.5 2.5 - 4.5 mg/dL [facility] Blood 05/29/2024 2:13 AM EDT 05/29/2024 2:27 AM EDT Narrative Resulting Agency Comment Spec In Lab Jerry Marin MD CHEMISTRY ORDERABLES Performing Organization Address [facility] de Phone Number [facility] [place] [address] * Magnesium (05/29/2024 2:13 AM EDT) Magnesium 0.77 0.69 - 1.07 mmol/L [facility] Blood 05/29/2024 2:13 AM EDT 05/29/2024 2:27 AM EDT Narrative Resulting Agency Comment Spec In Lab Jerry Marin MD CHEMISTRY ORDERABLES Performing Organization Address [facility] de Phone Number [facility] [place] [address] * (ABNORMAL) Basic Metabolic Panel (non-fasting) (05/29/2024 2:13 AM EDT) Glucose 251(H) 65 - 199 mg/dL [facility] Comment:Diabetes: >=200 mg/d L plus symptoms Blood Urea Nitrogen 11 10 - 20 mg/dL [facility] Creatinine 0.52(L) 0.80 - 1.50 mg/dL [facility] Sodium 138 135 - 145 mmol/L [facility] Potassium 3.3(L) 3.5 - 5.0 mmol/L [facility] Comment: Please note: ??Patients with WBC >100,000 may have falsely elevated Potassium levels. ??For accurate Potassium quantification in these patients send serum separator tube (gold top) for subsequent determinations. ??Contact the Clinical Chemistry Laboratory if there are any questions. Chloride 102 98 - 107 mmol/L [facility] Carbon Dioxide 25 22 - 31 mmol/L [facility] Anion Gap 11 5 - 15 mmol/L [facility] Calcium 9.0 8.5 - 10.5 mg/dL [facility] Est Glomerular Filtration Rate 123 >=60 mL/min/1. 73 m?? [facility] Comment: This patient's estimated [...] In Lab Jerry Marin MD CHEMISTRY ORDERABLES [facility] [place] [address] * (ABNORMAL) POCT Glucose (05/29/2024 12:25 AM EDT) Glucose, POC 253(H) 65 - 199 mg/dL [facility] Comment: Supplemental ranges: <140 mg/dL before meals <180 mg/dL all other times of the day Blood 05/29/2024 12:2 5 AM EDT 05/29/2024 12:25 AM EDT Jerry Marin MD POINT OF CARE TEST O RDERABLES Performing Organization Address [facility] Co de Phone Number [facility] [place] [address] * EKG 12 Lead (05/28/2024 7:54 PM EDT) Ventricular rate 78 BPM MUSE SYSTEM Atrial Rate 78 BPM MUSE SYSTEM P-R Interval 156 ms MUSE SYSTEM QRS Duration 110 ms MUSE SYSTEM Q-T Interval 408 ms MUSE SYSTEM QTC Calculated (Bezet) 465 ms MUSE SYSTEM Calculated R [place] 6 degrees MUSE SYSTEM Calculated T [place] 8 degrees MUSE SYSTEM INTERPRETATION Sinus rhythm Occasional Premature ventricular complexes Cannot rule out Anterior infarct , age undetermined Abnormal ECG When compared with ECG of 22-AUG-2013 07:45, Premature ventricular complexes are now Present Confirmed by MD Sher, Josh ([id number]) on 05/29/2024 5:47:25 AM MUSE SYSTEM 05/28/2024 7:54 PM EDT 05/29/2024 5:47 AM EDT Arthur Patel DO ECG ORDERABLES Performing Organization Address [facility] de Phone Number MUSE SYSTEM * Type and Screen Validity (05/28/2024 6:20 PM EDT) T&S only valid at [facility] Comment:This Type and Screen result is only valid at the [facility] Blood 05/28/2024 6:20 PM EDT 05/28/2024 6:24 PM EDT Narrative Resulting Agency Comment Spec In Lab María Ugalde MD BLOOD BANK LAB ORDER RANDELL Performing Organization Address City/[facility] Co de Phone Number [facility] [place] [phone] * ABORH Recheck Status (05/28/2024 6:20 PM EDT) ABORH Type Recheck Completed [facility] Blood 05/28/2024 6:20 PM EDT 05/28/2024 6:24 PM EDT Narrative Resulting Agency Comment Spec In Lab María Ugalde MD BLOOD BANK LAB ORDER RANDELL Performing Organization Address City/[facility]/ZIP Co de Phone Number [facility] [place] [address] * Gold Tube HOLD (05/28/2024 6:20 PM EDT) [facility] Gold Hold Sample in lab. [facility] Blood Venous Draw / Unknown 05/28/2024 6:20 PM EDT 05/28/2024 6:25 PM EDT Juan Santana MD CHEMISTRY ORDERABLES Performing Organization Address City/[facility]/ZIP Co de Phone Number [facility] [place] [address] * Differential, Automated (05/28/2024 6:20 PM EDT) [facility] Neutrophil % 56.3 % [facility] Neutrophil Absolute 3.94 1.70 - 6.10 x10(3)/[facility] Lymph % 32.7 % [facility] Lymphocytes Abs 2.3 0.9 - 3.2 x10(3)/[facility] Monocyte % 6.7 % [facility] Monocyte Abs 0.5 0.3 - 0.9 x10(3)/[facility] Eos % 3.0 % [facility] Eosinophils Abs 0.2 0.0 - 0.4 x10(3)/[facility] Basophil % 1.0 % [facility] Baso Absolute 0.1 0.0 - 0.1 x10(3)/[facility] Immature Gran % 0.30 % [facility] Comment: Immature granulocytes(IG's)percentage and absolute count will include metamyelocytes, myelocytes, and promyelocytes. Blood smears from CBCs yielding IG's will be scanned manually for concordance. If this scan disagrees with the automated IG or if promyelocytes are noted, a manual differential will be performed. Immature Gran Absolute 0.02 0.00 - 0.04 x10(3)/mcL [facility] Blood 05/28/2024 6:20 PM EDT 05/28/2024 6:24 PM EDT Narrative Resulting Agency Comment Spec In Lab Juan Santana MD HEMATOLOGY ORDERABLE S [facility] [place] [address] * (ABNORMAL) Hemogram (05/28/2024 6:20 PM EDT) White Blood Cell 7.0 4.0 - 9.5 x10(3)/mc L [facility] Red Blood Cell 4.67 4.58 - 5.54 x10(6)/mc L [facility] Hemoglobin 14.1 13.7 - 16.5 g/dL [facility] Hematocrit 39.7(L) 40.5 - 48.5 % [facility] Mean Cell Volume 85.0 82.9 - 93.1 fL [facility] Mean Cell Hemoglobin 30.2 27.5 - 32.1 pg [facility] Mean Cell Hemoglobin Concentration 35.5 32.0 - 35.7 g/dL [facility] Platelet 162 145 - 357 x10(3)/mc L [facility] RDW Standard Deviation 35.3(L) 36.0 - 45.0 [facility] RDW coefficient of variation 11.5 11.4 - 13.8 % [facility] Mean Platelet Volume 10.8 7.6 - 12.9 [facility] NRBC% auto 0.0 % [facility] NRBC Absolute 0.000 0.000 - 0.000 x10(3)/mc L [facility] Blood 05/28/2024 6:20 PM EDT 05/28/2024 6:24 PM EDT Narrative Resulting Agency Comment Spec In Lab Juan Santana MD HEMATOLOGY ORDERABLE S Performing Organization Address City/[facility]/ZIP Co de Phone Number [facility] [place] [address] * Type and screen ([facility] (05/28/2024 6:20 PM EDT) ABORH Type A POSITIVE [facility] Patient BB History Found [facility] Expires at [id number] on: 05-31-2024 [facility] Ab Screen Interp Negative [facility] Blood 05/28/2024 6:20 PM EDT 05/28/2024 6:20 PM EDT Narrative [facility] - 05/28/2024 6:20 PM EDT This Type and Screen result is only valid at the [facility] Resulting Agency Comment Spec In Lab María Ugalde MD BLOOD BANK LAB ORDER RANDELL Performing Organization Address [facility]/ZIP Co de Phone Number [facility] [place] [address] * Lactate, whole blood, send to lab ([facility] (05/28/2024 6:20 PM EDT) Lactate WB 1.6 0.5 - 2.2 mmol/L [facility] Blood 05/28/2024 6:20 PM EDT 05/28/2024 6:23 PM EDT Narrative Resulting Agency Comment Spec In Lab Arthur Patel DO CHEMISTRY ORDERABLES [facility] [place] [address] * APTT (05/28/2024 6:20 PM EDT) Partial Thromboplastin Time 26 25 - 37 sec [facility] Comment: The PTT is NOT appropriate for heparin monitoring. Use the Anti-Xa level for heparin monitoring (HEP UFH) or LMWH monitoring (HEP LMW). A PTT less than 37 seconds generally indicates adequate hemostasis. Blood 05/28/2024 6:20 PM EDT 05/28/2024 6:24 PM EDT Narrative Resulting Agency Comment Spec In Lab Arthur Patel DO HEMATOLOGY ORDERABLE S Performing Organization Address [facility] Co de Phone Number [facility] [place] [address] * Prothrombin Time (05/28/2024 6:20 PM EDT) Prothrombin Time 10.6 9.4 - 12.5 sec [facility] International Normalization Ratio 0.9 [facility] Comment: An INR <2.0 [...] Resulting Agency Comment Spec In Lab Arthur Jorge HEMATOLOGY ORDERABLE S Performing Organization Address [facility]/ZIP Co de Phone Number [facility] [place] [address] * (ABNORMAL) Basic Metabolic Panel (non-fasting) (05/28/2024 6:20 PM EDT) Glucose 286(H) 65 - 199 mg/dL [facility] Comment:Diabetes: >=200 mg/d L plus symptoms Blood Urea Nitrogen 9(L) 10 - 20 mg/dL [facility] Creatinine 0.53(L) 0.80 - 1.50 mg/dL [facility] Sodium 135 135 - 145 mmol/L [facility] Potassium 3.9 3.5 - 5.0 mmol/L [facility] Comment: Please note: ??Patients with WBC >100,000 may have falsely elevated Potassium levels. ??For accurate Potassium quantification in these patients send serum separator tube (gold top) for subsequent determinations. ??Contact the Clinical Chemistry Laboratory if there are any questions. Chloride 99 98 - 107 mmol/L [facility] Carbon Dioxide 25 22 - 31 mmol/L [facility] Anion Gap 11 5 - 15 mmol/L [facility] Calcium 9.2 8.5 - 10.5 mg/dL [facility] Est Glomerular Filtration Rate 122 >=60 mL/min/1. 73 m?? [facility] Comment: This patient's estimated [...] In Lab Arthur Patel DO CHEMISTRY ORDERABLES [facility] [place] [address] * (ABNORMAL) POCT Glucose (05/28/2024 5:46 PM EDT) [facility] Signature Glucose, POC 262(H) 65 - 199 mg/dL [facility] Comment: Supplemental ranges: <140 mg/dL before meals <180 mg/dL all other times of the day Blood 05/28/2024 5:46 PM EDT 05/28/2024 5:46 PM EDT Emergency Dept POINT OF CARE TEST ORDERABLES Performing Organization Address City/State/[facility] Co de Phone Number [facility] [place] [address] documented in this encounter Visit Diagnoses Diagnosis [...] HOURS SCHEDULED, First dose on Wed05/28/24 at 2002, Until Discontinued, Administer for pain [...] on Wed05/28/24 at 2003, Until Discontinued, Routine Given 06/02/2024 [...] on Wed05/30/24 at 1928, Until Wed05/30/24 at 192, Per Protocol, Warning Vesicant/Irritant Medication , Radiology [...] Patient/family refused) 0812 (Given - Provider: Venus Issa, DAVID)1640 (Given - Provider: Anuj Liu RN)2020 (Given [...] Liu RN) 0825 (Given - Provider: Venus Issa RN) insulin [...] Provider: Anuj Liu RN)1742 (Given - Provider: Anju Liu RN) insulin lispro (HumaLOG;Admelog) (100 unit/mL) [...] - Provider: Lalitha Hernandez LPN - Comment: [id number])203 (Given - Provider: Maribel Lazo RN) 0819 (Given - Provider: Venus Issa RN - Comment: Bg 288)1151 (Given - Provider: Anuj Liu RN - Comment: BG 264)1646 (Given - Provider: Anuj Liu RN - Comment: BG 178)2022 (Given - Provider: Lizett Simmons RN) 0730 (Not Given - Provider: Anuj Liu RN - Reason: See comment - Comment: No ACTION FINISHER on the unit, due to short staffing, [...] 0812 (Given - Provider: Venus Issa, DAVID) 0840 (Given - Provider: Anuj Liu RN) methylphenidate (Ritalin) tablet 20 mg 20 mg, Oral, 3 TIMES DAILY BEFORE MEALS, First dose on Wed05/29/24 at 0730, Until Discontinued, Routine 0634 (Given - Provider: Maribel Lazo RN)1244 (Given - Provider: Anuj Liu RN)1604 (Given - Provider: Anuj Lui RN) 0638 (Given - Provider: Maribel Lazo [...] location) verified - Provider: Maribel Lazo RN) 09 (Patch (dose and location) verified - Provider: Venus Issa RN)2099 (Patch (dose and location) verified - Provider: [...] 817 (Given - Provider: Anuj Liu RN) 811 (Given - Provider: Venus Issa, DAVID) 08 (Given - Provider: Anuj Liu RN) senna-docusate (Pericolace) 8.6-50 mg per tablet 2 tablet 2 tablet, Oral, 2 TIMES DAILY, First dose on Wed05/28/24 at 2100, Until Discontinued, Hold for loose stool. , Routine 817 (Given - Provider: Anuj Liu RN)2032 (Given - Provider: Maribel Lazo RN) 08 (Given - Provider: Venus Issa, DAVID)2019 (Given - Provider: Lizett Simmons, DAVID) 0839 (Given - Provider: Anuj Liu RN) sodium chloride 0.9 % (flush) (BD PosiFlush Normal Saline 0.9) flush 5 mL 5 mL, Intravenous, 2 TIMES DAILY, First dose on Wed05/28/24 at 2100, Until Discontinued, Routine 833 (Given - Provider: Anuj Liu RN)2032 (Given [...] Issa RN) 0839 (Given - Provider: Anuj Liu, DAVID) Continuous Medication Order 05/31/2024 06/01/2024 06/02/2024 heparin [...] Routine 1501 (New Bag - Provider: Anuj Liu, RN) 0629 (New Bag - Provider: Maribel [...] For pain 7-10 give 0.4mg dilaudid., Routine 817 (Given - Provider: Venus Issa RN) insulin lispro (HumaLOG;Admelog) (100 unit/mL) subcutaneous injection vial 1-13 Units 1-13 Units, Subcutaneous, 3 TIMES DAILY PRN, Starting on Wed06/01/24 at 1123, Until Wed06/02/24 at 2044, with snacks, [employer] Give 1 unit for every 6 grams carbohydrate. Hold if not eating or if BG less than 70 mg/dL., Routine 1342 (Given - Provider: Anuj Liu RN)1648 (Given - Provider: Anuj Liu RN) lidocaine [...] Anuj Liu RN)2020 (Given - Provider: Lizett Simmons, DAVID) 0232 (Given - Provider: Lizett Simmons RN)0840 [...] Intravenous, BOLUS PER HEPARIN PROTOCOL, Starting on 05/28/24 at 1953, Until Wed06/02/24 at 0917, Per [...] Routine documented in this encounter Care Teams Extractive Metallurgist Relationship Specialty Start Date End Date None None PCP - General 05/27/24 09/17/24 documented as of this encounter
--- OUTSIDE RECORDS SUMMARY | 2024-09-20 08:24 | XMS_ITS | Encounter Summary ---
Author Organization [facility] [place] [address] Care Team Providers Care Slot Manager Name Role Phone None Primary Care Provider Unavailabl e Encounter Details Date Type Department Care Team (Latest Contact Info) Description 05/28/2024 Travel Social History Tobacco Use Types Packs/Day Years Used Date Smoking Tobacco: Every Day Cigarettes 1 25 Started: 12/28/1986; Last attempted to quit: 12/28/2011 Alcohol Use Standard Drinks/Week Comments No 0 (1 standard drink = 0.6 oz pur e alcohol) [facility] Utilities Answer Date Recorded In the past [...] time in the past 12 m [facility], were you homeless or living in a group home (including now)? No 05/29/2024 DH IPV Inpatient [...] on filedocumented in this encounter Care Teams Slot Manager Relationship Specialty Start Date End Date None None PCP - General 05/27/24 09/17/24 documented as of this encounter
--- OUTSIDE RECORDS SUMMARY | 2024-09-20 08:25 | XMS_ITS | Encounter Summary ---
Author Organization Formerly [facility] Address [facility] [place] [address] Care Team Providers Care Heater Mechanic Name Role Phone Guanako Gusman MD Primary Care Provider [phone] Reason for Visit * Reason Onset Date Comments Follow-up 01/18/2012 Called patient t o follow up on smoking cessation counseling done while he was inpatient. Encounter Details Date Type Department Care Team (Late st Contact Info) Description 01/18/2012 Telephone Cardiothoracic [place] [address] Vibha Martines APRN [facility] [place] [address] Follow-up (Called patient to follow up on [...] He wanted to continue to go [place]. We agreed that I would call him [...] on filedocumented in this encounter Care Teams Heater Mechanic Relationship Specialty Start Date End Date Guanako Gusman MD PCP - General 12/29/11 02/26/19 documented as of this encounter
--- OUTSIDE RECORDS SUMMARY | 2024-09-20 08:25 | XMS_ITS | Encounter Summary ---
Author Organization [facility] Address [facility] [place] [address] Care Team Providers Care Biomedical Equipment Specialist Name Role Phone Guanako Gusman MD Primary Care Provider [phone] Encounter Details Date Type Department Care Team (Late st Contact Info) Description 02/09/2012 10:27 AM EDT - 02/09/2012 11:59 PM EDT Hospital Encounter XRay at [address] [place] [address] Chest pain Social History Tobacco Use Types [...] unspecified documented in this encounter Care Teams Biomedical Equipment Specialist Relationship Specialty Start Date End Date Guanako Gusman MD PCP - General 12/29/11 02/26/19 documented as of this encounter
--- OUTSIDE RECORDS SUMMARY | 2024-09-20 08:25 | XMS_ITS | Encounter Summary ---
Author Organization [facility] Address [facility] [place] [address] Care Team Providers Care Zigzag Machine Operator Name Role Phone Guanako Gusman MD Primary Care Provider Reason for Visit * Reason Comments Follow Up Surgery Encounter Details Date Type Department Care Team (Late st Contact Info) Description 02/09/2012 11:00 AM EDT Office Visit [place] [address] Inna Tovar MD [facility] [place] [address] Chest pain; S/P CABG (coronary artery bypass [...] performed by INNA TOVAR at [facility] OR ??? Cabg, artery-vein, single 01/04/2012 @CABG, VENOUS & ARTERIAL GRAFT;SINGLE VEIN GRAFT performed by INNA TOVAR at [facility] OR Outpatient prescriptions marked as taking [...] (Bezet) 453 ms MUSE SYSTEM Calculated P [place] 41 degrees MUSE SYSTEM Calculated R [place] 25 degrees MUSE SYSTEM Calculated T [place] 74 degrees MUSE SYSTEM INTERPRETATION Sinus tachycardia [...] status documented in this encounter Care Teams Zigzag Machine Operator Relationship Specialty Start Date End Date Guanako Gusman MD PCP - General 12/29/11 02/26/19 documented as of this encounter
--- OUTSIDE RECORDS SUMMARY | 2024-09-20 08:25 | XMS_ITS | Encounter Summary ---
Author Organization [facility] Address [facility] [place] [address] Care Team Providers Care Colliery Clerk Name Role Phone Guanako Gusman MD Primary Care Provider [phone] Reason for Visit * Reason Onset Date Comments Sweats 01/16/2012 Encounter Details Date Type Department Care Team (Late st Contact Info) Description 01/16/2012 Telephone Cardiology at [address] [phone] Maninder Brennan MD [facility] [address] Sweats Social History Tobacco Use Types Packs/Day [...] on filedocumented in this encounter Care Teams Colliery Clerk Relationship Specialty Start Date End Date Guanako Gusman MD PCP - General 12/29/11 02/26/19 documented as of this encounter
--- OUTSIDE RECORDS SUMMARY | 2024-09-20 08:25 | XMS_ITS | Encounter Summary ---
Author Organization [facility] Address [facility] [place] [address] Care Team Providers Care Deputy Clerk Of Court Name Role Phone Guanako Gusman MD Primary Care Provider [phone] Encounter Details Date Type Department Care Team (Late st Contact Info) Description 01/26/2012 Orders Only [place] [address] Benjamin Lockwood, PA [facility] [place] [address] Social History Tobacco Use Types Packs/Day Years [...] on filedocumented in this encounter Care Teams Deputy Clerk Of Court Relationship Specialty Start Date End Date Guanako Gusman MD PCP - General 12/29/11 02/26/19 documented as of this encounter
--- OUTSIDE RECORDS SUMMARY | 2024-09-20 08:25 | XMS_ITS | Encounter Summary ---
Author Organization [facility] Address [facility] [place] [address] Care Team Providers Care Applications Engineer Manufacturing Name Role Phone Partic Al MD Primary Care Provider [phone] Reason for Visit * Reason Onset Date Comments Medication Refill 01/11/2012 Encounter Details Date Type Department Care Team (Late st Contact Info) Description 01/11/2012 Refill Cardioth[place]acic [place] [address] Zak Yoo III, PA [facility] [place]OTH[place]AC[place] [address] Social History Tobacco Use Types Packs/Day Years [...] - 01/11/2012 4:59 PM EST TELEPHONE NOTE [id number] y.o. Date of call: 01/11/2012CABG X [...] Jr. Home Medication Instructions CRAIG: Printed on:01/11/12 2834 Medication Information HYDROmorphone (DILAUDID) 4 mg tablet [...] updated today. Signed: ZAK YOO III, PA-C [facility] Section of Cardiothoracic Surgery Date: 01/11/12 PATRIC AL MD documented in this encounter Plan of Treatment Not on file documented as of this encounter Visit Diagnoses Not on filedocumented in this encounter Care Teams Applications Engineer Manufacturing Relationship Specialty Start Date End Date Patric Al MD PCP - General 12/29/11 02/26/19 documented as of this encounter
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
--- OUTSIDE RECORDS SUMMARY | 2024-09-20 08:26 | XMS_ITS | Encounter Summary ---
Author Organization [facility] Address [facility] Jean Marie britton [place] [id number] Care Team Providers Care Sign Language Teacher Name Role Phone Patric Al MD Primary Care Provider [phone] Reason for Referral * (Routine) - Closed by system - unspecified Specialty Diagnoses / Procedures Referred By Contac t Referred To Contact Diagnoses Chest pain Sarthak Pollard MD [facility] [place] [address] Referral ID Status Reason Start Date Expiration Date Visits Requested Visits Authorized [id number] Closed by system - unspecified Evaluate and Treat 01/08/2012 07/06/2012 1 1 Encounter Details Date Type Department Care Team (Latest Contact Info) Description 12/29/2011 8:26 PM EST - 01/08/2012 2:58 PM EST Hospital Encounter Intermediate Cardiac Care Unit [place] [phone] Andi Rene MD [facility] [place] [address] Sarthak Pollard MD [facility] [place] [address] Inna Tovar MD [facility] [place] [address] Chest pain Discharge Disposition: Home with VNA [...] Discharge Instructions * Discharge Instructions* Darcie Lange, ENGINEERING AIDE - 01/08/2012 12:11 PM EST Geovanna Shahmonika Ordoñez. 1975 [id number] New Diagnosis of Pre-Diabetes For discharge should [...] Some considerations about using metformin in Prediabetics: [place] Diabetes Prevention Program (DPP) as well as other minor studies and meta-analyses has convincingly demonstrated the efficacy of metformin in this patient group [pre-diabetics]. In addition, results of the 10 year DPP follow up have recently been published, demonstrating the usp safety and sustainability of metformin treatment benefits [...] - will be starting Cardiac rehab at [facility], encouraged to increase physical activity as advised by cardiologists Weight Loss - A 7% weight loss could significantly improve his BG control Tobacco cessation - There is growing evidence that cigarette smokers are more prone than the general population to develop T2DM. Increase in insulin resistance with tobacco use. Darcie Lange APRN [facility] Endocrinology Diabetes Management [phone] * Patient Instructions* Ricky Graham PA - [...] Anne Tovar and/or the Cardiothoracic Surgery Physician Display Fabricator Team may be reached at . Activity [...] Dr. Inna Tovar. You may use a [place] Track or treadmill but avoid any pulling [...] friends, go to a movie, go to hoahaoism, etc. Heavy activities: No hunting, skiing, jogging, [...] would be to continue to go [place]. He has quit this way before and [...] only 10% of those who quit [place] are able to be successful. The calculated savings once he quits smoking would be $54 a week, $234 a month, and $2803 a year. If he quits now his savings will be $28,030 in 10 years. The patient was provided with a [facility] Smoking Cessation packet and the contents have [...] given to patient. Discharge summary faxed to [facility] and receipt confirmed via phone. Patient discharged [...] outpatient basis Equipment needs: none ADEBAYO MCGARRY, APPEALS COURT ASSOCIATE JUSTICE Pager: [phone] Physical Therapy Rehabilitation Department * Michelle Chong [...] services. Patient would like VNA services through [facility]. PHONE: [phone] FAX: [phone]. Referral made via E-discharge. Please see home care orders that must be included in discharge summary for VN services to start. Patient has glucometer and supplies at bedside. Pt. Denies any further needs from CRC. Pt. Gets scripts through [place] Medicaid with co-pay. He denies any concerns related to co-pay. * Darcie Lange APRN - 01/07/2012 9:57 AM EST Geovanna Dixon . 1975 [id number] PATRIC AL MD Follow Up Diabetes Consult [...] Some considerations about using metformin in Prediabetics: [place] Diabetes Prevention Program (DPP) as well as other minor studies and meta-analyses has convincingly demonstrated the efficacy of metformin in this patient group [pre-diabetics]. In addition, results of the 10 year DPP follow up have recently been published, demonstrating the usp safety and sustainability of metformin treatment benefits [...] - will be starting Cardiac rehab at [facility], encouraged to increase physical activity [...] send home with glucometer - reviewed with Zack and pending home prescriptions for new freestyle lite Continue with QID sensitive Novolog correction only Darcie Lange APRN [facility] Endocrinology Diabetes Management [phone] Pager [phone] This case was discussed with Dr. Christina Brody. 25 min time spent in patient care with 20 counseling, seeing patient, changing orders and discussion with the patient and the primary team as well as nursing. * Inna Tovar MD - 01/07/2012 9:39 AM EST Cardiac Surgery Progress Note: ID: [id number] 36/M POD #[address] Tovar [...] results found for this basename: phart, po2art, fzd7zof Assessment/Plan: Pathway. Neuro: ambulating on own per [...] (ie take out the trash or pickle maker his child) Objective:Pt was seen today [...] interventions: 30 minutes NAM TRINIDAD, PT Pager: [phone] Physical Therapy Rehabilitation Department * Vibha Martines [...] Date: 12/29/11 Why then: Admission to [facility] What will be different this time: Just [...] in places where it is forbidden ex hoahaoism No Yes 0 3. Which cigarette would [...] (m2) 2.53 m2 Physical Exam: (per Dr. Dacey's exam today) Heart: RR&R Lungs: Decreased sounds [...] would be to continue to go [place]. He has quit this way before and it lasted several years, so he has a history of being successful with this method. He also pointed out that his father and an uncle quit (for now over 10 years) by going [place]. I told him that it is difficult to recommend a quit method that has a 90% failure rate, but that said, it is his choice and that I would provide him with a toolkit of information so that he will be as knowledgeable as possible about nicotineaddiction and how to stay quit. And we do know that 10% of those who quit [place] are able to be successful. I calculated and shared with him that his savings once he quits smoking would be $54 a week, $234 amonth, and $2803 a year. If he quits now his savings will be $28,030 in 10 years. The patient has also been provided with a [facility] Smoking Cessation packet and the contents have been reviewed with him. The patient now has the Quit line number for [place] and has also been encouraged to use this if needed for support. In addition he was in agreement with a referral to the [place] Quitnetworkand I have FAXed a referral to [...] Intervention: Hospital Day 9 Diet Order: [facility] Appetite: fair Food allergies: none Chewing/Swallowing difficulty: none Height: (cm) 180.3 Weight: (kg) 127.9 01/06/12 Wt hx: (kg) 124.5 12/29/11 BMI: 38.4 Education: [facility] dietary guidelines. Tips To Better Food Intake (Protein) dietary guidelines. Verbalized good understanding. Education material, with means of contact provided. Assessment: Patient verbalized good understanding of protein needs for healing as well as [facility] Heart Healthy guidelines. I have added high protein snacks between meals and CIB shakes to meal trays for extra protein/nutrition. Nutrition Plan: Diet: [facility] Recommend Daily Multi Vitamins. Added high protein snacks. CIB w/skim milk shakes three times per day. Encourage good po intake. Monitor weight. Support and encouragement provided. Nutrition services to follow weekly thru hospital course unless consulted in the interim. ACOSTA SMALL * Inna Tovar MD - 01/06/2012 1:50 PM EST Cardiac Surgery In Patient Progress Note Patient Name: Geovanna Dixon Jr. : [id number] MR#: [id number] Admitted: 12/29/2011 Hospital Day 8 days Problem [...] RN - 01/06/2012 10:11 AM EST [facility] CARDIAC REHABILITATION Geovanna Viet Dixon Jr. was seen today regarding participation in outpatient Phase 2 Cardiac Rehabilitation at [facility] . A referral will be sent to this program. The patient was given contact information and should expect to be contacted by the program within 1-2 weeks after discharge from [facility]. IR * Kareen Mendoza PT - 01/05/2012 [...] TOVAR at [facility] MAIN OR Social History: Patient lives with [...] minutes brief evaluation KAREEN MENDOZA, PT Pager: [phone] Physical Therapy Rehabilitation Department * Camille Angulo [...] A: medical plan still evolving. P: This copywriter or colleague from the Office of Care [...] ??? sodium chloride 0.9% 30 mL/hr (12/30/11 7195) PRN Meds:.heparin (porcine), sodium chloride 0.9%, fentaNYL [...] FULL CODE Paola Akers PGY 1 Pager [phone] Attending Addendum: I spoke with the patient and his family briefly this am. I agree with the principal findings. The impression and plan incorporate my input. No contraindication to surgery today. Sarthak Pollard MD [facility] pager [phone] * Sarthak Pollard MD - 01/03/2012 11:08 [...] risk of aggravating CAD. Sarthak Pollard MD [facility] pager [phone] * Bal John MD - 01/02/2012 3:10 [...] bumped due to OR time, rescheduled for Bennie. - will stay on heparin gtt until [...] Cristina Ambriz MD PGY1, Internal Medicine Pager [phone] 01/02/2012 Attending Addendum: I have interviewed and examined the patient. I agree with the principal findings. The impression and plan incorporate my input. As above, doing well. Will keep on heparin until surgery. No angina, HF, bleeding, or evidence of HIT. Sarthak Pollard MD [facility] pager [phone] * Inna Tovar MD - 01/01/2012 3:17 PM EST Please see Dr. Major's note from 12/31/11 for full details. Briefly, Mr. Dixon developed unstable angina and ruled in for AL. Cath shows severe 3 vessel disease. Echo [...] Infusions: ??? sodium chloride 0.9% 1,000 mL (12/30/11914) ??? sodium chloride 0.9% 30 mL/hr (12/30/11954) ??? heparin 2,850 Units/hr (01/01/12 0457) ??? heparin 1,900 Units/hr (12/30/11 06) PRN Meds:.sodium chloride 0.9%, fentaNYL (PF), iohexol, [...] mg BID Paola Akers PGY 1 Pager [phone] Attending Addendum: I have interviewed and examined the patient. I agree with the principal findings. The impression and plan incorporate my input. He is disappointed that his surgery has been postponed until Wednesday butunderstands. He remains cp free. I've reviewed his angiograms and believe he needs to stay on heparin until surgery. All questions answered. Sarthak Pollard MD [facility] pager [phone] * Andi Rene MD - 12/31/2011 5:20 [...] on telemetry - CABG either tomorrow or Bennie # Fevers - Cultures sent, pending - Rapid strep, throat culture - Appreciate ID recs # Prophylaxis - DVT: Heparin gtt - GI: Famotidine 20 mg BID Paola Akers PGY 1 Pager [phone] Cardiology Attending Progress Note Addendum: I have [...] would like to attend cardiac rehab at [facility] in [facility]. We [...] off unit to XRAY with transpo & BILINGUAL CALL CENTER REPRESENTATIVE. documented in this encounter H&P Notes * Herman Loyd RN - 01/05/2012 12:44 PM EST [facility] , report to Camilla. * [...] alleviate the pain. He eventually presented to [facility] on Wednesday wherehe had [...] - exploratory laparotomy w/o bowel resection ([facility] J') Medications prior to admission that will be [...] motorcycles and hunting He is NOT a muslim FHx: Heart disease on both sides of the family Father's side with multiple uncles with AL's, one at age of 40 Mother's side with uncle at age 50 from AL Diabetes in mother ROS: Positive headache, nausea [...] 12/29/2011 PTT 31 12/30/2011 Troponins at [facility]: 0.05-->0.03 Imaging: Echo 12/30/11: 1. The left [...] loss were emphasized as they relate to usp patency of his grafts. He should receive smoking cessation counseling donya. One post op consideration will be vent wean and respiratory status given likely underlying CAMILLA and his known narcolepsy. Pre op orders written, heparin gtt to stop professional advisor to OR. Pt seen and interviewed with [...] 25 pack year smoker comes to [facility] from [facility] for evaluation of intermittent [...] history (both paternal grandparents passing away from [facility] and paternal aunts/uncles with histories of [...] FULL Provider: REMIGIO CERON MD Pager #: [phone] documented in this encounter Procedure Notes * Provider, Karina - 01/10/2012 1:46 PM ESTAssociated Order(s): SCAN DOC: PEDIATRIC PSYCHIATRIST * Provider, Karina - 01/10/2012 1:46 PM ESTAssociated Order(s): SCAN [...] 3:45 PM EST Geovanna Dixon Jr. 1975 [id number] Inpatient Endocrinology Glucose Management Consult Date of [...] and to provide a review of his usp diabetes plan. Diabetes History: Geovanna Dixon Jr. [...] Care: Medications: None Monitoring: None Diet: [facility] Healthy No Known Allergies Past Medical History: [...] considerations about using metformin in Prediabetics: ?? [place] Diabetes Prevention Program (DPP) as well as other minor studies and meta-analyses hasconvincingly demonstrated the efficacy of metformin in this patient group [pre-diabetics]. In addition, results of the 10 year DPP follow up have recently been published, demonstrating the usp safety and sustainability of metformin treatment benefits [...] - will be starting Cardiac rehab at [facility], encouraged to increase physical activity [...] 500 mg QD Darcie Lange APRN [facility] Endocrinology Diabetes Management [phone] Pager [phone] This case was discussed with Dr. Christina [...] alleviate the pain. He eventually presented to [facility] on Wednesday where he [...] Geovanna Llanos Zack Heart was admitted to [facility] on 12/29/2011 to the cardiologyservice for [...] Medications: Geovanna Dixon Jr. Home Medication Instructions CRAIG:[id number] Printed on:01/08/12 1204 Medication Information simvastatin (ZOCOR) 20 mg tablet [...] Anne Tovar and/or the Cardiothoracic Surgery Physician Display Fabricator Team may be reached at . Activity [...] Dr. Inna Tovar. You may use a [place] Track or treadmill but avoid any pulling [...] friends, go to a movie, go to hoahaoism, etc. Heavy activities: No hunting, skiing, jogging, [...] would be to continue to go [place]. He has quit this way before and [...] only 10% of those who quit [place] are able to be successful. The calculated savings once he quits smoking would be $54 a week, $234 a month, and $2803 a year. If he quits now his savings will be $28,030 in 10 years. The patient was provided with a [facility] Smoking Cessation packet and the contents have been reviewed with him. The patient now has the Quit line number for [place] and has also been encouraged to use [...] Some considerations about using metformin in Prediabetics: [place] Diabetes Prevention Program (DPP) as well as other minor studies and meta-analyses has convincingly demonstrated the efficacy of metformin in this patient group [pre-diabetics]. In addition, results of the 10 year DPP follow up have recently been published, demonstrating the usp safety and sustainability of metformin treatment benefits [...] - will be starting Cardiac rehab at [facility], encouraged to increase physical activity as advised by cardiologists Weight Loss - A 7% weight loss could significantly improve his BG control Tobacco cessation - There is growing evidence that cigarette smokers are more prone than the general population to develop T2DM. Increase in insulin resistance with tobacco use. Darcie Lange APRN [facility] Endocrinology Diabetes Management [phone] Medications: Take only those medications listed on [...] should resume a low fat, low cholesterol, [place] Heart Association Diet. Driving: No driving for [...] to see your primary care physician, PATRIC LA MD, in two weeks. You will return to clinic to see Dr. Inna Tovar in 4 weeks and will have a CXR and EKG at that time. A letter with the details of this appointment will be mailed to you. Cardiac Rehabilitation: Geovanna Dixon Jr. was seen regarding participation in outpatient Phase 2 Cardiac Rehabilitation at [facility] . A referral will be sent to this program. He was given contact information and shouldexpect to be contacted by the program within 1-2 weeks after discharge from [facility]. Arrangements for VNA/home care: PATIENT'S LOCATION: Geovanna Dixon Jr. [address] [place] [address] [place] [id number] There is no home phone number on file. Telephone Information: In discussion with the attending physician, it is certified that this patient is under their care and that they, or a nurse practitioner, clinical nurse specialist or physician's admissions assistant who is working directly with them, [...] for services as follows: HOME HEALTH AGENCY: [facility]. PHONE: [phone] FAX: [phone] RN orders: Cardiopulmonary assessment, incisional assessment, assess [...] issues please call the Cardiac SurgeryOffice at [phone] FOR MEDICARE ONLY: (please delete this section if not Medicare) In discussion with the attending physician, it is certified that the clinical findings support thatthis patient is homebound (i.e. absences from home require considerable and taxing effort and are for medical reasons or methodist services of infrequently or of short duration [...] nurse practitioner, clinical nurse specialist or physician's admissions assistant who is working directly with them, [...] effort and are for medical reasons or methodist services of infrequently or of short duration when for other reasons) Please note that any additional orders needs or changes will need to be obtained from this patient's PCP: PATRIC AL MD [phone] All VNA agencies which cover the area of patient's residence have been reviewed, either verbally feli writing, and patient/family have chosen the indicated home health care agency for home services. Comments: Questions: Responses: Agency name and contact information [facility] Patient location post discharge home What services are requested Start date 01/10/2012 Responsible MD post discharge contact info PCP RN to remove chest tube sutures on or after 01/13/12. Signed: Ricky Graham PA-C [facility] Section of Cardiothoracic Surgery Date: 01/08/12 CC: MD CARLOS MENDEZ [facility] EMERGENCY DEPT [address] [place] [address] [place] [address] * Op Note - Inna Tovar MD - 01/04/2012 3:55 PM EST [facility] Operative Note Patient Name: Geovanna Dixon Jr. : [id number] MR#: [id number] Case Date: 01/04/2012 Surgeon: Surgeon(s) and Role: [...] enlarged. There was diffuse disease in all capitan grande band vessels. The OFELIA and vein were of excellent quality. The lungs had early emphysematous changes. Procedure Details: The patient was brought to the operating room and given general anesthesia. A [place]-Haley catheter, radial arterial line, and Mendez catheter [...] fter inspection for adequate hemostasis, two #28 Pashto chest tubes were placed and brought out [...] Note Patient Name: Geovanna Dixon Jr. 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 No recent out door activities or [...] pharyngitis on exam, with recent exposure to infantgrankarenauconsueloter who had pneumonia. The patient denies rigors, cough, myalgia but admits to headache which he associates with reducing his caffeine intake recently. He has not had flu vaccine. Other than his throat there are no focal signs suggesting a source of infection. It's possible he has strep throat, although viral infection is probably more likely. (Leukocytosis may be r/t stress of AL.) Bacteremia as a complication of his cath, [...] EST LAB SCAN 01/10/2012 1:46 PM EST PEDIATRIC PSYCHIATRIST SCAN 01/10/2012 1:46 PM EST CARDIAC CATH [...] 01/05/20 12 2:00 AM EST CARDIAC ENZYMES ([facility]) Routine 01/05/2012 2:00 AM EST CREATININE Routine [...] 12:23 AM EST DIFFERENTIAL, AUTOMATED Routine 01/01/20 6:37 PM EST APTT STAT 01/01/2012 6:37 [...] 12/30/2011 4:14 PM EST CARDIAC ENZYMES ([facility]) STAT 12/30/2011 2:08 PM EST APTT STAT 12/30/2011 2:08 PM EST HIV SCREEN, 4TH GENERATION ([facility]/APD/NLH) Routine 12/30/2011 10:18 AM EST ECHOCARDIOGRAM TRANSTHORACIC [...] 12/30/2011 7:07 AM EST CARDIAC ENZYMES ([facility]) STAT 12/30/2011 5:45 AM EST APTT STAT [...] 12/29/19 12 11:29 PM EST CARDIAC ENZYMES ([facility]) STAT 12/29/2011 11:29 PM EST APTT STAT [...] (Bezet) 453 ms MUSE SYSTEM Calculated P [place] 41 degrees MUSE SYSTEM Calculated R [place] 25 degrees MUSE SYSTEM Calculated T [place] 74 degrees MUSE SYSTEM INTERPRETATION Sinus tachycardia [...] SCAN EXT O RDR/RSLT * SCAN DOC: PEDIATRIC PSYCHIATRIST (01/10/2012 1:46 PM EST) Anatomical Region Laterality Modality Other Narrative 01/11/2012 8:32 AM EST Procedure Note Provider, Scanning - 01/10/2012 1:46 PM EST Scanning Provider MEDIA MGR SCAN EXT O RDR/RSLT * POCT GLUCOSE LAB USE ONLY (01/08/2012 12:00 PM EST) [facility] Glucose, POC 106 60 - 199 mg/dL [facility] Comment: Supplemental ranges: <110 mg/dL before meals <200 mg/dL all other times of the day Blood specimen (specimen) 01/08/2012 12:00 PM EST 01/08/2012 12:00 PM EST Andi Rene MD POINT OF CARE TEST O RDERABLES [facility] * Potassium (01/08/2012 10:05 AM EST) Potassium 4.2 3.5 - 5.0 mmol/L [facility] Comment: Please note: ??Patients with WBC [...] Tovar MD CHEMISTRY ORDERABLES Performing Organization Address [facility] Phone Number [facility] * POCT GLUCOSE LAB USE ONLY (01/08/2012 7:21 AM EST) Glucose, POC 144 60 - 199 mg/dL [facility] Comment: Supplemental ranges: <110 mg/dL before meals <200 mg/dL all other times of the day Blood specimen (specimen) 01/08/2012 7:21 AM EST 01/08/2012 7:21 AM EST Andi Rene MD POINT OF CARE TEST O RDTYESHA Performing Organization Address [facility] Phone Number [facility] * POCT GLUCOSE LAB USE ONLY (01/07/2012 8:43 PM EST) Glucose, POC 179 60 - 199 mg/dL [facility] Comment: Supplemental ranges: <110 mg/dL before meals <200 mg/dL all other times of the day Blood specimen (specimen) 01/07/2012 8:43 PM EST 01/07/2012 8:43 PM EST Andi Rene MD POINT OF CARE TEST O RDERAHERNANDEZ Performing Organization Address [facility] de Phone Number [facility] * POCT GLUCOSE LAB USE ONLY (01/07/2012 4:47 PM EST) Glucose, POC 128 60 - 199 mg/dL [facility] Comment: Supplemental ranges: <110 mg/dL before meals <200 mg/dL all other times of the day Blood specimen (specimen) 01/07/2012 4:47 PM EST 01/07/2012 4:47 PM EST Andi Rene MD POINT OF CARE TEST O GILDA Performing Organization Address [facility] [facility] de Phone Number [facility] * Potassium (01/07/2012 11:42 AM EST) Potassium 3.6 3.5 - 5.0 mmol/L [facility] Comment: Please note: ??Patients with WBC [...] Tovar MD CHEMISTRY ORDERABLES Performing Organization Address [facility] Phone Number [facility] * POCT GLUCOSE LAB USE ONLY (01/07/2012 11:41 AM EST) Glucose, POC 114 60 - 199 mg/dL [facility] Comment: Supplemental ranges: <110 mg/dL before meals <200 mg/dL all other times of the day Blood specimen (specimen) 01/07/2012 11:41 AM EST 01/07/2012 11:41 AM EST Andi Rene MD POINT OF CARE TEST O GILDA Performing Organization Address [facility] de Phone Number [facility] * XR chest routine PA & [...] LAB USE ONLY (01/07/2012 8:00 AM EST) [facility] Glucose, POC 116 60 - 199 mg/dL [facility] Comment: Supplemental ranges: <110 mg/dL [...] Lab Sarthak Pollard MD CHEMISTRY ORDERABLES CERBRIAN CAENNIUM * (ABNORMAL) CBC (with Diff) (01/07/2012 4:11 [...] MD HEMATOLOGY ORDERABLE S Performing Organization Address [facility] Co de Phone Number [facility] * Microalbumin, urine, random (01/06/2012 9:03 PM EST) Creatinine, Urine 136 mg/dL [facility]ID[facility] MILLENNIUM Albumin, Urine 14.4 mg/L CERNE R MILLENNIUM Albumin / Creatinin Ratio, Urine 11 mcg/mg Cr CERNER MILLENNIUM Comment: Reference Range* Random collection (mcg/mg creatinine) Normal ?<30 Microalbuminuria ?? 30 - 300 Clinical Albuminuria ?? >300 *[place] [employer]. Diabetic Nephropathy. Diabetes Care 1997;(Suppl 1):S24-S27 Exercise within 24 hour, infection, fever, CHF, marked hyperglycemia, and marked hypertension may elevate urinary albumin excretion over baseline values. Urine specimen (specimen) 01/06/2012 9:03 PM EST 01/06/2012 10:28 PM EST Narrative Resulting Agency Comment Spec In Lab Inna Tovar MD URINE ORDERABLES Performing Organization Address [facility] Co de Phone Number [facility] * POCT GLUCOSE LAB USE ONLY (01/06/2012 7:46 PM EST) Glucose, POC 127 60 - 199 mg/dL [facility] Comment: Supplemental ranges: <110 mg/dL before meals <200 mg/dL all other times of the day Blood specimen (specimen) 01/06/2012 7:46 PM EST 01/06/2012 7:46 PM EST Andi Rene MD POINT OF CARE TEST O RDERABLES Performing Organization Address [facility] Co de Phone Number [facility] * POCT GLUCOSE LAB USE ONLY (01/06/2012 4:24 PM EST) Glucose, POC 131 60 - 199 mg/dL [facility] Comment: Supplemental ranges: <110 mg/dL before meals <200 mg/dL all other times of the day Blood specimen (specimen) 01/06/2012 4:24 PM EST 01/06/2012 4:24 PM EST Andi Rene MD POINT OF CARE TEST O GILDA Performing Organization Address [facility] Phone Number [facility] * POCT GLUCOSE LAB USE ONLY (01/06/2012 12:06 PM EST) Glucose, POC 160 60 - 199 mg/dL [facility] Comment: Supplemental ranges: <110 mg/dL before meals <200 mg/dL all other times of the day Blood specimen (specimen) 01/06/2012 12:06 PM EST 01/06/2012 12:06 PM EST Andi Rene MD POINT OF CARE TEST O GILDA Performing Organization Address [facility] Phone Number [facility] * Potassium (01/06/2012 9:59 AM EST) Potassium 4.0 3.5 - 5.0 mmol/L [facility] Comment: Please note: ??Patients with WBC [...] Tovar MD CHEMISTRY ORDERABLES Performing Organization Address [facility] de Phone Number [facility] * POCT GLUCOSE LAB USE ONLY (01/06/2012 6:53 AM EST) Glucose, POC 168 60 - 199 mg/dL [facility] Comment: Supplemental ranges: <110 mg/dL before meals <200 mg/dL all other times of the day Blood specimen (specimen) 01/06/2012 6:53 AM EST 01/06/2012 6:53 AM EST Andi S Rene MD POINT OF CARE TEST O RDERAHERNANDEZ Performing Organization Address [facility] Co de Phone Number [facility] * POCT GLUCOSE LAB USE ONLY (01/06/2012 5:03 AM EST) Glucose, POC 147 60 - 199 mg/dL [facility] Comment: Supplemental ranges: <110 mg/dL before meals <200 mg/dL all other times of the day Blood specimen (specimen) 01/06/2012 5:03 AM EST 01/06/2012 5:03 AM EST Andi Rene MD POINT OF CARE TEST O GILDA Performing Organization Address [facility] de Phone Number [facility] * POCT GLUCOSE LAB USE ONLY (01/06/2012 3:16 AM EST) Glucose, POC 126 60 - 199 mg/dL [facility] Comment: Supplemental ranges: <110 mg/dL before meals <200 mg/dL all other times of the day Blood specimen (specimen) 01/06/2012 3:16 AM EST 01/06/2012 3:16 AM EST Andi Rene MD POINT OF CARE TEST O GILDA Performing Organization Address [facility] de Phone Number [facility] * POCT GLUCOSE LAB USE ONLY (01/06/2012 1:12 AM EST) Glucose, POC 135 60 - 199 mg/dL [facility] Comment: Supplemental ranges: <110 mg/dL before meals <200 mg/dL all other times of the day Blood specimen (specimen) 01/06/2012 1:12 AM EST 01/06/2012 1:12 AM EST Andi Rene MD POINT OF CARE TEST O RDERAHERNANDEZ Performing Organization Address [facility]/ZIP Co de Phone Number [facility] * POCT GLUCOSE LAB USE ONLY (01/05/2012 11:52 PM EST) Glucose, POC 133 60 - 199 mg/dL [facility] Comment: Supplemental ranges: <110 mg/dL before meals <200 mg/dL all other times of the day Blood specimen (specimen) 01/05/2012 11:52 PM EST 01/05/2012 11:52 PM EST Andi Rene MD POINT OF CARE TEST O GILDA Performing Organization Address [facility] de Phone Number [facility] * POCT GLUCOSE LAB USE ONLY (01/05/2012 10:54 PM EST) Glucose, POC 130 60 - 199 mg/dL [facility] Comment: Supplemental ranges: <110 mg/dL before meals <200 mg/dL all other times of the day Blood specimen (specimen) 01/05/2012 10:54 PM EST 01/05/2012 10:54 PM EST Andi Rene MD POINT OF CARE TEST O GILDA Performing Organization Address [facility] de Phone Number [facility] * POCT GLUCOSE LAB USE ONLY (01/05/2012 9:51 PM EST) Glucose, POC 132 60 - 199 mg/dL [facility] Comment: Supplemental ranges: <110 mg/dL before meals <200 mg/dL all other times of the day Blood specimen (specimen) 01/05/2012 9:51 PM EST 01/05/2012 9:51 PM EST Andi Rene MD POINT OF CARE TEST O DIMITRIERAHERNANDEZ Performing Organization Address [facility] de Phone Number [facility] * POCT GLUCOSE LAB USE ONLY (01/05/2012 8:50 PM EST) Glucose, POC 126 60 - 199 mg/dL [facility] Comment: Supplemental ranges: <110 mg/dL before meals <200 mg/dL all other times of the day Blood specimen (specimen) 01/05/2012 8:50 PM EST 01/05/2012 8:50 PM EST Andi Rene MD POINT OF CARE TEST O RDTYESHA Performing Organization Address [facility] Co de Phone Number [facility] * POCT GLUCOSE LAB USE ONLY (01/05/2012 8:07 PM EST) Glucose, POC 126 60 - 199 mg/dL [facility] Comment: Supplemental ranges: <110 mg/dL before meals <200 mg/dL all other times of the day Blood specimen (specimen) 01/05/2012 8:07 PM EST 01/05/2012 8:07 PM EST Andi Rene MD POINT OF CARE TEST O GILDA Performing Organization Address [facility] de Phone Number [facility] * POCT GLUCOSE LAB USE ONLY (01/05/2012 6:57 PM EST) Glucose, POC 137 60 - 199 mg/dL [facility] Comment: Supplemental ranges: <110 mg/dL before meals <200 mg/dL all other times of the day Blood specimen (specimen) 01/05/2012 6:57 PM EST 01/05/2012 6:57 PM EST Andi Rene MD POINT OF CARE TEST O GILDA Performing Organization Address [facility] Co de Phone Number [facility] * POCT GLUCOSE LAB USE ONLY (01/05/2012 4:59 PM EST) Glucose, POC 147 60 - 199 mg/dL [facility] Comment: Supplemental ranges: <110 mg/dL before meals <200 mg/dL all other times of the day Blood specimen (specimen) 01/05/2012 4:59 PM EST 01/05/2012 4:59 PM EST Andi Rene MD POINT OF CARE TEST O RDERABLES Performing Organization Address [facility]/ZIP Co de Phone Number [facility] * POCT GLUCOSE LAB USE ONLY (01/05/2012 1:05 PM EST) Glucose, POC 154 60 - 199 mg/dL [facility] Comment: Supplemental ranges: <110 mg/dL before meals <200 mg/dL all other times of the day Blood specimen (specimen) 01/05/2012 1:05 PM EST 01/05/2012 1:05 PM EST Andi Rene MD POINT OF CARE TEST O RDERAHERNANDEZ Performing Organization Address [facility] Co de Phone Number [facility] * POCT GLUCOSE LAB USE ONLY (01/05/2012 12:42 PM EST) Glucose, POC 148 60 - 199 mg/dL [facility] Comment: Supplemental ranges: <110 mg/dL before meals <200 mg/dL all other times of the day Blood specimen (specimen) 01/05/2012 12:42 PM EST 01/05/2012 12:42 PM EST Andi Rene MD POINT OF CARE TEST O GILDA Performing Organization Address [facility] Co de Phone Number [facility] * POCT GLUCOSE LAB USE ONLY (01/05/2012 9:54 AM EST) Glucose, POC 145 60 - 199 mg/dL [facility] Comment: Supplemental ranges: <110 mg/dL before meals <200 mg/dL all other times of the day Blood specimen (specimen) 01/05/2012 9:54 AM EST 01/05/2012 9:54 AM EST Andi Rene MD POINT OF CARE TEST O RDERAHERNANDEZ Performing Organization Address [facility] Co de Phone Number [facility] * POCT GLUCOSE LAB USE ONLY (01/05/2012 8:00 AM EST) Glucose, POC 168 60 - 199 mg/dL [facility] Comment: Supplemental ranges: <110 mg/dL before meals <200 mg/dL all other times of the day Blood specimen (specimen) 01/05/2012 8:00 AM EST 01/05/2012 8:00 AM EST Andi Rene MD POINT OF CARE TEST O RDERAHERNANDEZ Performing Organization Address [facility] de Phone Number [facility] * POCT GLUCOSE LAB USE ONLY (01/05/2012 5:58 AM EST) Glucose, POC 164 60 - 199 mg/dL [facility] [employer] Comment: Supplemental ranges: <110 mg/dL before meals <200 mg/dL all other times of the day Blood specimen (specimen) 01/05/2012 5:58 AM EST 01/05/2012 5:58 AM EST Andi Rene MD POINT OF CARE TEST O DIMITRIERAHERNANDEZ Performing Organization Address [facility] de Phone Number [facility] [employer] * POCT GLUCOSE LAB USE ONLY (01/05/2012 4:12 AM EST) Glucose, POC 148 60 - 199 mg/dL [facility] [employer] Comment: Supplemental ranges: <110 mg/dL before meals <200 mg/dL all other times of the day Blood specimen (specimen) 01/05/2012 4:12 AM EST 01/05/2012 4:12 AM EST Andi Rene MD POINT OF CARE TEST O RDERAHERNANDEZ Performing Organization Address [facility] de Phone Number [facility] * POCT GLUCOSE LAB USE ONLY (01/05/2012 2:05 AM EST) Glucose, POC 148 60 - 199 mg/dL [facility] MILLENNIUM Comment: Supplemental ranges: <110 [...] HEMATOLOGY ORDERABLE S [facility]ERNER MILLENNIUM * (ABNORMAL) Cardiac Enzymes (01/05/2012 2:00 AM EST) Troponin-T 0.39(H) <=0.03 ng/mL [facility] Comment: 0.03 ng/mL: Represents the 99th percentile upper reference limit for normals. >0.03 ng/mL: Elevated cardiac troponin T level indicative of myocardial damage. Diagnosis of acute, evolving or recent AL requires a typical rise and gradual fall [...] consensus document of the Joint Society of Cardiology/[place] College [employer]iology Committee for the redefinition of myocardial infarction. Journal of the [place] College [employer]iology 2000; 36: 959-969] Creatine Kinase 436(H) 0 - 200 unit/L [facility] Blood specimen (specimen) 01/05/2012 2:00 AM EST 01/05/2012 2:11 AM EST Narrative Resulting Agency Comment Spec In Lab Sarthak Pollard MD CHEMISTRY ORDERABLES ARIAN NELSON * Potassium (01/05/2012 2:00 AM EST) Pathologist [facility] Potassium 4.4 3.5 - 5.0 mmol/L [facility] Comment: Please note: ??Patients with WBC [...] Pollard MD CHEMISTRY ORDERABLES Performing Organization Address [facility] de Phone Number ARIAN NELSON * (ABNORMAL) Glucose, fasting (01/05/2012 2:00 AM EST) Glucose Fasting 148(H) 65 - 99 mg/dL [facility] Comment: ?Fasting* Glucose Interpretive Criteria Normal [...] of Diabetes Mellitus, Position Statement from the [place] Diabetes Association. ??Diabetes Care, Volume 33, Supplement 1, Nov 2009 Blood specimen (specimen) 01/05/2012 2:00 AM EST 01/05/2012 2:11 AM EST Narrative Resulting Agency Comment Spec In Lab Sarthak Pollard MD CHEMISTRY ORDERABLES Performing Organization Address [facility] Phone Number ARIAN NELSON * Creatinine, serum (01/05/2012 2:00 AM EST) Creatinine 0.86 0.80 - 1.50 mg/dL [facility] Est Glomerular Filtration Rate >60 >=60 [facility] Comment: The National Kidney Disease Education [...] Pollard MD CHEMISTRY ORDERABLES Performing Organization Address [facility] de Phone Number CERBRIAN CAENNIUM * BUN (01/05/2012 2:00 AM EST) Blood Urea Nitrogen 10 10 - 20 mg/dL [facility] MILLENNIUM Blood specimen (specimen) 01/05/2012 2:00 AM EST 01/05/2012 2:11 AM EST Narrative Resulting Agency Comment Spec In Lab Sarthak Pollard MD CHEMISTRY ORDERABLES Performing Organization Address [facility] de Phone Number [facility] ROBY[facility] * (ABNORMAL) CBC (with Diff) (01/05/2012 2:00 [...] Platelet Volume 9.7 9.0 - 12.0 fL [facility] MILL[facility] Blood specimen (specimen) 01/05/2012 2:00 AM EST 01/05/2012 2:11 AM EST Narrative Resulting Agency Comment Spec In Lab Sarthak Pollard MD HEMATOLOGY ORDERABLE S Performing Organization Address [facility] de Phone Number [facility] * POCT GLUCOSE LAB USE ONLY (01/04/2012 11:58 PM EST) Glucose, POC 136 60 - 199 mg/dL [facility] Comment: Supplemental ranges: <110 mg/dL before meals <200 mg/dL all other times of the day Blood specimen (specimen) 01/04/2012 11:58 PM EST 01/04/2012 11:58 PM EST Andi Rene MD POINT OF CARE TEST O GILDA Performing Organization Address [facility] Co de Phone Number [facility] * POCT GLUCOSE LAB USE ONLY (01/04/2012 9:00 PM EST) Glucose, POC 143 60 - 199 mg/dL [facility] Comment: Supplemental ranges: <110 mg/dL before meals <200 mg/dL all other times of the day Blood specimen (specimen) 01/04/2012 9:00 PM EST 01/04/2012 9:00 PM EST Andi Rene MD POINT OF CARE TEST O RDERABLES Performing Organization Address [facility] de Phone Number [facility] * GLUCOSE, RANDOM (01/04/2012 9:00 PM EST) Glucose 128 60 - 199 mg/dL [facility] Comment:Diabetes: >=200 mg/d L plus symptoms Blood specimen (specimen) 01/04/2012 9:00 PM EST 01/04/2012 9:08 PM EST Narrative Resulting Agency Comment Spec In Lab Sarthak Pollard MD CHEMISTRY ORDERABLES Performing Organization Address [facility] Phone Number [facility] * (ABNORMAL) Hemoglobin (01/04/2012 9:00 PM EST) Hemoglobin 13.6(L) 13.7 - 17.5 gm/dL [facility] Blood specimen (specimen) 01/04/2012 9:00 PM EST 01/04/2012 9:08 PM EST Narrative Resulting Agency Comment Spec In Lab Sarthak Pollard MD HEMATOLOGY ORDERABLE S Performing Organization Address [facility] Phone Number [facility] * Potassium (01/04/2012 9:00 PM EST) Potassium 4.7 3.5 - 5.0 mmol/L [facility] Comment: Please note: ??Patients with WBC [...] Pollard MD CHEMISTRY ORDERABLES Performing Organization Address [facility] de Phone Number [facility] * (ABNORMAL) BLOOD GAS 2 ARTERIAL (01/04/2012 6:47 PM EST) pH, Arterial 7.33(L) [facility]ILL[facility] PCO2, Arterial 47(H) mmHg CERNE R MILLENNIUM PO2, Arterial 109(H) mmHg [facility]ER MILLENNIUM Bicarbonate, Arterial 24.1 mmol/L [facility]ERNER MILLENNIUM Base Excess, Arterial -1.9 mmol/L [facility] Hgb Blood Gas 14.1 gm/dL [facility]ILL[facility]NI[facility] Comment: Total Hemoglobin (in gm/dL) ?[place] [facility] [place] ranges: ?Age ?Reference Range Less than [...] Total Hemoglobin (in gm/dL) ?Based [place] [facility] [place] ranges: ?Age ?Reference Range Less than [...] IMPRESSION: Expected early postoperative findings. Ricky ANDERSON [facility] DX ORDERABLES * (ABNORMAL) BLOOD GAS 2 ARTERIAL (01/04/2012 4:30 PM EST) pH, Arterial 7.35(L) [facility]ERNER MILLENNIUM PCO2, Arterial 46(H) mmHg CERNE R MILLENNIUM PO2, Arterial 223(H) mmHg [facility]ERNER MILLENNIUM Bicarbonate, Arterial 25.1 mmol/L [facility]ERNER MILLENNIUM Base Excess, Arterial -0.4 mmol/L [facility]ERNER MILLENNIUM Hgb Blood Gas Not Perf 13.7 - 17.5 gm/dL [facility]ILL[facility] Comment: Total Hemoglobin (in gm/dL) ?Based [place] [facility] [place]ematology ranges: ?Age ?Reference Range Less than [...] CARE TEST O RDERABLES Performing Organization Address [facility]/ZIP Co de Phone Number CERNER MILLENNIUM * EKG 12 Lead (01/04/2012 4:26 PM EST) Ventricular rate 72 BPM MUSE SYSTEM Atrial Rate 72 BPM MUSE SYSTEM P-R Interval 174 ms MUSE SYSTEM QRS Duration 96 ms MUSE SYSTEM Q-T Interval 416 ms MUSE SYSTEM QTC Calculated (Bezet) 455 ms MUSE SYSTEM Calculated P [place] 48 degrees MUSE SYSTEM Calculated R [place] 23 degrees MUSE SYSTEM Calculated T [place] 71 degrees MUSE SYSTEM INTERPRETATION Normal sinus rhythm Normal ECG When compared with ECG of 30-DEC-2011 17:24, Vent. rate has decreased BY ??35 BPM Minimal criteria for Inferior infarct are no longer Present Nonspecific T wave abnormality, improved in Anterolateral leads Confirmed by fellow MD Steve, Luca ([id number]) on 01/05/2012 10:22:57 AM Confirmed by MD DELMIS, SARTHAK ([id number]) on 01/05/2012 1:30:02 PM MUSE SYSTEM 01/04/2012 4:26 PM EST 01/05/2012 1:30 PM EST Sarthak Pollard MD ECG ORDERABLES Performing Organization Address [facility] Co de Phone Number MUSE [...] l) mmHg [facility]ERNER MILLENNIUM Comment: Noted by supervisor instrument mechanics. MTF PO2, Arterial 145(H) mmHg CERNER MILLENNIUM Bicarbonate, Arterial 25.5 mmol/L CERNER MILLENNIUM Base Excess, Arterial -0.7 mmol/L CERNER MILLENNIUM Hgb Blood Gas 11.1(L) gm/dL [facility] MILL[facility]NI[facility] Comment: Total Hemoglobin (in gm/dL) ?Based [place] [facility] [place]ematology ranges: ?Age ?Reference Range Less than [...] CARE TEST O RDERABLES Performing Organization Address [facility] de Phone Number [facility] * THROMBIN TIME (01/04/2012 3:28 PM EST) Thrombin Time 17 15 - 20 sec [facility] Blood specimen (specimen) 01/04/2012 3:28 PM EST 01/04/2012 3:28 PM EST Narrative Resulting Agency Comment Spec In Lab Sarthak Pollard MD HEMATOLOGY ORDERABLE S Performing Organization Address [facility] de Phone Number [facility] * FIBRINOGEN (01/04/2012 3:28 PM EST) Fibrinogen 364 200 - 470 mg/dL [facility] Comment:Called by: LEILANI, Read back by: AKANKSHA SAMPSON, Date/Time:01/04/12 15:45. Blood specimen (specimen) 01/04/2012 3:28 PM EST 01/04/2012 3:28 PM EST Narrative Resulting Agency Comment Spec In Lab Sarthak Pollard MD HEMATOLOGY ORDERABLE S Performing Organization Address [facility] Phone Number [facility] * APTT (01/04/2012 3:28 PM EST) Partial Thromboplastin Time 30 25 - 35 sec [facility] Comment: Recommended therapeutic PTT range for full dose unfractionated heparin is 80-114 seconds. Blood specimen (specimen) 01/04/2012 3:28 PM EST 01/04/2012 3:28 PM EST Narrative Resulting Agency Comment Spec In Lab Sarthak Pollard MD HEMATOLOGY ORDERABLE S Performing Organization Address [facility] de Phone Number [facility] * (ABNORMAL) PROTHROMBIN TIME (01/04/2012 3:28 PM EST) Prothrombin Time 17.8(H) 11.9 - 14.7 sec [facility] Comment: [facility] Transfusion Committee Guidelines: INR less than [...] HEMATOLOGY ORDERABLE S ARIAN CAENNIUM * (ABNORMAL) BLOOD GAS 2 ARTERIAL (01/04/2012 2:28 PM EST) pH, Arterial 7.31(L) CERNER MILLENNIUM PCO2, Arterial 53(Critica l) mmHg [facility] Comment: Noted by supervisor instrument mechanics. MTF PO2, Arterial 296(H) mmHg CERNER MILLENNIUM Bicarbonate, Arterial 26.3(H) mmol/L CERNER MILLENNIUM Base Excess, Arterial 0.1 mmol/L CERNER MILLENNIUM Hgb Blood Gas 10.2(L) gm/dL CERNER MILLENNIUM Comment: Total Hemoglobin (in gm/dL) ?[place] [facility] [place] ranges: ?Age ?Reference Range Less than [...] CARE TEST O RDERABLES Performing Organization Address [facility] Phone Number [facility] * FIBRINOGEN (01/04/2012 2:25 PM EST) Fibrinogen 356 200 - 470 mg/dL [facility] Comment:Called by: [facility], Read back by: AKANKSHA SAMPSON, Date/Time:01/04/12 14:49. Blood specimen (specimen) 01/04/2012 2:25 PM EST 01/04/2012 2:32 PM EST Narrative Resulting Agency Comment Spec In Lab Sarthak Pollard MD HEMATOLOGY ORDERABLE S Performing Organization Address [facility] de Phone Number [facility] * PLATELET COUNT (01/04/2012 2:25 PM EST) Platelet 281 145 - 370 x10(3)/mcL [facility] Blood specimen (specimen) 01/04/2012 2:25 PM EST 01/04/2012 2:32 PM EST Narrative Resulting Agency Comment Spec In Lab Sarthak Pollard MD HEMATOLOGY ORDERABLE S Performing Organization Address [facility]/ZIP Co de Phone Number CERNER MILLENNIUM * (ABNORMAL) BLOOD GAS 2 ARTERIAL (01/04/2012 12:59 PM EST) [facility] Signature pH, Arterial 7.36 CERNER MILLENNIUM PCO2, Arterial 48(H) mmHg CERNE R MILLENNIUM PO2, Arterial 197(H) mmHg CERNER MILLENNIUM Bicarbonate, Arterial 26.7(H) mmol/L CERNER MILLENNIUM Base Excess, Arterial 1.3 mmol/L CERNER MILLENNIUM Hgb Blood Gas 13.9 gm/dL CERNER MILLENNIUM Comment: Total Hemoglobin (in gm/dL) ?[place] [facility] [place]ematology ranges: ?Age ?Reference Range Less than [...] CARE TEST O RDERAHERNANDEZ Performing Organization Address [facility] Co de Phone Number [facility] * Prepare Coag Factors (Non-Hemophilia) (01/04/2012 12:05 PM EST) Dispensed? Yes ARIAN CERDAIUM Blood specimen (specimen) 01/04/2012 12:05 PM EST 01/04/2012 12:01 PM EST Narrative Resulting Agency Comment Spec In Lab Inna Tovar MD BLOOD BANK PRODUCT O RDERAHERNANDEZ Performing Organization Address [facility] Co de Phone Number ARIAN CERDAIUM * Prepare RBC (01/04/2012 12:05 PM EST) Dispensed? Yes ARIAN CERDAIUM Blood specimen (specimen) 01/04/2012 12:05 PM EST 01/04/2012 12:01 PM EST Narrative Resulting Agency Comment Spec In Lab Inna Tovar MD BLOOD BANK PRODUCT O RDERABLES Performing Organization Address [facility]/ZIP Co de Phone Number [facility] PRASHANTIUM * (ABNORMAL) DIFFERENTIAL, MANUAL (01/04/2012 4:40 AM [...] 0.0 - 0.2 x10(3)/mc L CERNER MILLENNIUM [place] Absolute Manual 0.3(H) 0.0 - 0.0 x10(3)/mc [...] BMP w/fasting Glucose (01/04/2012 4:40 AM EST) [facility] Glucose Fasting 113(H) 65 - 99 [...] of Diabetes Mellitus, Position Statement from the [place] [employer]. ??Diabetes Care, Volume 33, Supplement [...] MD HEMATOLOGY ORDERABLE S Performing Organization Address [facility] Co de Phone Number [facility] MILLENNIUM * (ABNORMAL) APTT (01/04/2012 4:40 AM EST) Partial Thromboplastin Time 103(H) 25 - 35 sec [facility] MILLENNIUM Comment: Recommended therapeutic PTT range for full dose unfractionated heparin is 80-114 seconds. Blood specimen (specimen) 01/04/2012 4:40 AM EST 01/04/2012 4:52 AM EST Narrative Resulting Agency Comment Spec In Lab Sarthak Pollard MD HEMATOLOGY ORDERABLE S Performing Organization Address [facility] de Phone Number [facility] * (ABNORMAL) APTT (01/03/2012 7:38 PM EST) Partial Thromboplastin Time 98(H) 25 - 35 sec [facility] MILLENNIUM Comment: Recommended therapeutic PTT range for full dose unfractionated heparin is 80-114 seconds. Blood specimen (specimen) 01/03/2012 7:38 PM EST 01/03/2012 7:53 PM EST Narrative Resulting Agency Comment Spec In Lab Sarthak Pollard MD HEMATOLOGY ORDERABLE S Performing Organization Address [facility] Co de Phone Number [facility] * (ABNORMAL) APTT (01/03/2012 12:17 PM EST) Partial Thromboplastin Time 101(H) 25 - 35 sec [facility] MILLENNIUM Comment: Recommended therapeutic PTT range for [...] AM EST) Ab Screen Interp Negative [facility] Expires at [id number] on: [id number] C[facility]ER [facility] Blood specimen (specimen) 01/03/2012 6:15 AM EST 01/03/2012 6:35 AM EST Narrative Resulting Agency Comment Spec In Lab Sarthak Pollard MD BLOOD BANK LAB ORDER RANDELL Performing Organization Address [facility]/ZIP Co de Phone Number [facility] * ABO/RH TYPING (01/03/2012 6:15 AM EST) ABORH Type A Pos [facility] Blood specimen (specimen) 01/03/2012 6:15 AM EST 01/03/2012 6:35 AM EST Narrative Resulting Agency Comment Spec In Lab Sarthak Pollard MD BLOOD BANK LAB ORDER RANDELL Performing Organization Address [facility] Co de Phone Number [facility] * (ABNORMAL) APTT (01/03/2012 6:15 AM EST) Partial Thromboplastin Time 96(H) 25 - 35 sec [facility] Comment: Recommended therapeutic PTT range for full dose unfractionated heparin is 80-114 seconds. Blood specimen (specimen) 01/03/2012 6:15 AM EST 01/03/2012 6:23 AM EST Narrative Resulting Agency Comment Spec In Lab Sarthak Pollard MD HEMATOLOGY ORDERABLE S Performing Organization Address [facility] Co de Phone Number [facility] * (ABNORMAL) BMP w/fasting Glucose (01/03/2012 6:15 AM EST) Glucose Fasting 116(H) 65 - 99 mg/dL [facility] Comment: ?Fasting* Glucose Interpretive Criteria Normal [...] of Diabetes Mellitus, Position Statement from the [place] [employer]. ??Diabetes Care, Volume 33, Supplement [...] Narrative Resulting Agency Comment Spec In Lab Remigoi Ceron MD HEMATOLOGY ORDERABLE S CERNER MILLENNIUM * (ABNORMAL) APTT (01/02/2012 11:21 PM EST) Partial Thromboplastin Time 69(H) 25 - 35 sec [facility] Comment: Recommended therapeutic PTT range for full dose unfractionated heparin is 80-114 seconds. Blood specimen (specimen) 01/02/2012 11:21 PM EST 01/02/2012 11:24 PM EST Narrative Resulting Agency Comment Spec In Lab Sarthak Pollard MD HEMATOLOGY ORDERABLE S Performing Organization Address [facility] Co de Phone Number [facility] * (ABNORMAL) APTT (01/02/2012 5:32 PM EST) Partial Thromboplastin Time 53(H) 25 - 35 sec [facility] Comment: Recommended therapeutic PTT range for full dose unfractionated heparin is 80-114 seconds. Blood specimen (specimen) 01/02/2012 5:32 PM EST 01/02/2012 5:38 PM EST Narrative Resulting Agency Comment Spec In Lab Sarthak Pollard MD HEMATOLOGY ORDERABLE S Performing Organization Address [facility] de Phone Number [facility] * (ABNORMAL) APTT (01/02/2012 11:56 AM EST) Partial Thromboplastin Time 46(H) 25 - 35 sec [facility] Comment: Recommended therapeutic PTT range for full dose unfractionated heparin is 80-114 seconds. Blood specimen (specimen) 01/02/2012 11:56 AM EST 01/02/2012 12:05 PM EST Narrative Resulting Agency Comment Spec In Lab Sarthak Pollard MD HEMATOLOGY ORDERABLE S Performing Organization Address [facility] Co de Phone Number [facility] * (ABNORMAL) DIFFERENTIAL, AUTOMATED (01/02/2012 6:02 AM EST) Neutrophil % 64.4 34.0 - 71.0 % [facility] Neutrophil Absolute 6.49(H) 1.50 - 6.30 [...] Thromboplastin Time 42(H) 25 - 35 sec ARIAN CAENNIUM Comment: [...] of Diabetes Mellitus, Position Statement from the [place] [employer]. ??Diabetes Care, Volume 33, Supplement [...] In Lab Andi Rene MD CHEMISTRY ORDERABLES [facility] * (ABNORMAL) CBC (with Diff) (01/02/2012 6:02 [...] Resulting Agency Comment Spec In Lab Remigio Ceorn MD HEMATOLOGY ORDERABLE S Performing Organization Address City/[facility]/ZIP Co de Phone Number CERNER MILLENNIUM [...] City/[facility]/ZIP Co de Phone Number CERBRIAN CAENNIUM [...] EST Sarthak Pollard MD HEMATOLOGY ORDERABLE S [facility] MILLENNIUM * (ABNORMAL) CBC (with Diff) (01/01/2012 [...] of variation 12.9 10.9 - 14.4 % [facility] Mean Platelet Volume 10.1 9.0 - 12.0 fL [facility] Blood specimen (specimen) 01/01/2012 6:37 PM EST 01/01/2012 6:43 PM EST Narrative Resulting Agency Comment Spec In Lab Sarthak Pollard MD HEMATOLOGY ORDERABLE S Performing Organization Address [facility] Phone Number [facility] * APTT (01/01/2012 6:37 PM EST) Partial Thromboplastin Time 32 25 - 35 sec [facility] Comment: Recommended therapeutic PTT range for full dose unfractionated heparin is 80-114 seconds. Blood specimen (specimen) 01/01/2012 6:37 PM EST 01/01/2012 6:43 PM EST Narrative Resulting Agency Comment Spec In Lab Sarthak Pollard MD HEMATOLOGY ORDERABLE S Performing Organization Address [facility] Phone Number [facility] * POCT GLUCOSE LAB USE ONLY (01/01/2012 12:02 PM EST) Glucose, POC 99 60 - 199 mg/dL [facility] Comment: Supplemental ranges: <110 mg/dL before meals <200 mg/dL all other times of the day Blood specimen (specimen) 01/01/2012 12:02 PM EST 01/01/2012 12:02 PM EST Andi Rene MD POINT OF CARE TEST O RDERABLES Performing Organization Address [facility] de Phone Number [facility] * (ABNORMAL) APTT (01/01/2012 11:59 AM EST) Partial Thromboplastin Time 108(H) 25 - 35 sec [facility] Comment: Recommended therapeutic PTT range [...] Absolute 0.0 0.0 - 0.2 x10(3)/mc L [facility] Immature Gran % 0.50 0.00 - 0.66 % [facility] Comment: Immature granulocytes(IG's)percentage and absolute count will include metamyelocytes, myelocytes, and promyelocytes. Blood smears from CBCs yielding IG's will be scanned manually for concordance. If this scan disagrees with the automated IG or if promyelocytes are noted, a manual differential will be performed. Immature Gran Absolute 0.07(H) 0.00 - 0.05 x10(3)/mc L [facility] Blood specimen (specimen) 01/01/2012 5:19 AM EST 01/01/2012 5:36 AM EST Remigio Ceron MD HEMATOLOGY ORDERABLE S [facility] * (ABNORMAL) APTT (01/01/2012 5:19 AM EST) Partial Thromboplastin Time 105(H) 25 - 35 sec [facility] Comment: Recommended therapeutic PTT range for full dose unfractionated heparin is 80-114 seconds. Blood specimen (specimen) 01/01/2012 5:19 AM EST 01/01/2012 5:36 AM EST Narrative Resulting Agency Comment Spec In Lab Remigio Ceron MD HEMATOLOGY ORDERABLE S [facility] * (ABNORMAL) BMP w/fasting Glucose (01/01/2012 5:19 AM EST) Glucose Fasting 121(H) 65 - 99 mg/dL [facility] Comment: ?Fasting* Glucose Interpretive Criteria Normal [...] of Diabetes Mellitus, Position Statement from the [place] [employer]. ??Diabetes Care, Volume 33, Supplement [...] Lab Remigio Ceron MD HEMATOLOGY ORDERABLE S [facility] * (ABNORMAL) APTT (12/31/2011 11:01 PM EST) Partial Thromboplastin Time 72(H) 25 - 35 sec [facility] Comment: Recommended therapeutic PTT range for full dose unfractionated heparin is 80-114 seconds. Blood specimen (specimen) 12/31/2011 11:01 PM EST 12/31/2011 11:18 PM EST Narrative Resulting Agency Comment Spec In Lab Andi Rene MD HEMATOLOGY ORDERABLE S Performing Organization Address [facility] de Phone Number [facility] * Upper Respiratory Culture Throat (12/31/2011 9:55 PM EST) Upper Respiratory Culture ? Patient Name: ZACK HEART, GEOVANNA [place] ? Ordered By: ANDI RENE ? MR#: [id number] ?LOC: ??[facility] ? /Sex: ??1975 (36 years), ? Male ? PROCEDURE: Upper Respiratory Culture ?SOURCE: Throat ? COLLECTED: 12/31/2011 21:55 ? STARTED: 12/31/2011 22:16 ? FINAL REPORT ? Final Report ? Verified:2011 08:12 ? Beta Hemolytic Streptococci, Group A isolated ? PRELIMINARY REPORT ? Preliminary Report ? Verified:2011 09:46 ? Beta Hemolytic Streptococci, Group A isolated ? [facility] Specimen from throat (specimen) 12/31/2011 9:55 PM EST 12/31/2011 10:16 PM EST Narrative Resulting Agency Comment Spec In Lab Andi Rene MD MICROBIOLOGY - GENER AL ORDERABLES Performing Organization Address [facility] de Phone Number [facility] * (ABNORMAL) APTT (12/31/2011 4:34 PM EST) Partial Thromboplastin Time 66(H) 25 - 35 sec [facility] Comment: Recommended therapeutic PTT range for full dose unfractionated heparin is 80-114 seconds. Blood specimen (specimen) 12/31/2011 4:34 PM EST 12/31/2011 4:39 PM EST Narrative Resulting Agency Comment Spec In Lab Andi Rene MD HEMATOLOGY ORDERABLE S Performing Organization Address [facility] Phone Number [facility] * Duplex Study for DVT, Bilat legs (12/31/2011 11:07 AM EST) Pathologist [facility] VB Text Report Department: Vascular Surgery Lab Patient: [id number] (GEOVANNA DIXON) CPT Code: 06700 ICD-9: 780.6 Referring Physician: ANDI RENE Indication: [...] AM EST) Smear Review Report ? [facility] ? Provider: ?? ANDI RENE ?Pt. Name: ?? ZACK ORDOÑEZ, GEOVANNA Llanos ? Acc #: ?[id number] ? Pt. ? Col Date: ?? 12/31/2011 [...] CERNER MILLENNIUM 12/31/2011 10:3 9 AM EST Andiviet Rene MD HEMATOLOGY ORDERABLE S CERNER MILLENNIUM [...] of variation 13.1 10.9 - 14.4 % [facility] Mean Platelet Volume 10.4 9.0 - 12.0 fL [facility] Blood specimen (specimen) 12/31/2011 9:44 AM EST 12/31/2011 10:12 AM EST Narrative Resulting Agency Comment Spec In Lab Andi Rene MD HEMATOLOGY ORDERABLE S Performing Organization Address [facility] de Phone Number [facility] * Lactate Dehydrogenase (12/31/2011 9:44 AM EST) Lactate Dehydrogenase 123 110 - 220 unit/L [facility] Blood specimen (specimen) 12/31/2011 9:44 AM EST 12/31/2011 10:12 AM EST Narrative Resulting Agency Comment Spec In Lab Andi Rene MD CHEMISTRY ORDERABLES Performing Organization Address [facility] Phone Number [facility] * Peripheral Smear Review (12/31/2011 9:44 AM EST) Peripheral Smear Review See Comment [facility] Comment: When completed by the Pathologist, report [id number] will display under Hematology Reports. Blood specimen (specimen) 12/31/2011 9:44 AM EST 12/31/2011 10:12 AM EST Narrative Resulting Agency Comment Spec In Lab Andi Rene MD HEMATOLOGY ORDERABLE S Performing Organization Address [facility] de Phone Number [facility] * (ABNORMAL) APTT (12/31/2011 9:44 AM EST) Partial Thromboplastin Time 50(H) 25 - 35 sec [facility] Comment: Recommended therapeutic PTT range for full dose unfractionated heparin is 80-114 seconds. Blood specimen (specimen) 12/31/2011 9:44 AM EST 12/31/2011 10:12 AM EST Narrative Resulting Agency Comment Spec In Lab Adni Rene MD HEMATOLOGY ORDERABLE S [facility]ERBRI[facility] MILLENNIUM * (ABNORMAL) DIFFERENTIAL, AUTOMATED (12/31/2011 3:38 [...] ORDERABLE S [facility]ER[facility] CAENNI[facility] * (ABNORMAL) APTT (12/31/2011 3:38 AM EST) Partial Thromboplastin Time 47(H) 25 - 35 sec CERNER MILLENNIUM Comment: Recommended therapeutic PTT range for full dose unfractionated heparin is 80-114 seconds. Blood specimen (specimen) 12/31/2011 3:38 AM EST 12/31/2011 3:50 AM EST Narrative Resulting Agency Comment Spec In Lab Andi Cate Rene MD HEMATOLOGY ORDERABLE S CERNER MILLENNIUM * (ABNORMAL) BMP w/fasting Glucose (12/31/2011 3:38 [...] of Diabetes Mellitus, Position Statement from the [place] [employer]. ??Diabetes Care, Volume 33, Supplement [...] Platelet Volume 10.3 9.0 - 12.0 fL [facility] MILLENNIUM Blood specimen (specimen) 12/31/2011 3:38 AM EST 12/31/2011 3:50 AM EST Narrative Resulting Agency Comment Spec In Lab Remigio Ceron MD HEMATOLOGY ORDERABLE S Performing Organization Address City/[facility]/ZIP Co de Phone Number ARIAN NELSON * (ABNORMAL) APTT (12/30/2011 9:02 PM EST) Partial Thromboplastin Time 37(H) 25 - 35 sec [facility] Comment: Recommended therapeutic PTT range for full dose unfractionated heparin is 80-114 seconds. Blood specimen (specimen) 12/30/2011 9:02 PM EST 12/30/2011 9:10 PM EST Narrative Resulting Agency Comment Spec In Lab Andi Rene MD HEMATOLOGY ORDERABLE S [facility] * EKG 12 Lead (12/30/2011 5:24 PM EST) Ventricular rate 107 BPM MUSE SYSTEM Atrial Rate 107 BPM MUSE SYSTEM P-R Interval 160 ms MUSE SYSTEM QRS Duration 104 ms MUSE SYSTEM Q-T Interval 310 ms MUSE SYSTEM QTC Calculated (Bezet) 413 ms MUSE SYSTEM Calculated P [place] 24 degrees MUSE SYSTEM Calculated R [place] 25 degrees MUSE SYSTEM Calculated T [place] 54 degrees MUSE SYSTEM INTERPRETATION Sinus tachycardia [...] Blood Culture ? Patient Name: ZACK GEOVANNA ORDOÑEZ ?Ordered By: ANDI RENE ? MR#: [id number] ?LOC: [facility] ? /Sex: ??1975 (36 years), [...] [place] ?Ordered By: ANDI RENE ? MR#: [id number] ?LOC: [facility] ? /Sex: ??1975 (36 years), [...] Narrative Resulting Agency Comment Spec In Lab Adniemely Rene MD MICROBIOLOGY - BLOOD ORDERABLES CERNER [...] PM EST 12/30/2011 4:43 PM EST Andi S Rene MD HEMATOLOGY ORDERABLE S Performing Organization Address City/[facility]/ZIP Co de Phone Number [facility] * ANTIBODY SCREEN (12/30/2011 4:25 PM EST) Ab Screen Interp Negative [facility] Expires at [id number] on: [id number] [facility] Blood specimen (specimen) 12/30/2011 4:25 PM EST 12/30/2011 4:36 PM EST Narrative Resulting Agency Comment Spec In Lab Andi Rene MD BLOOD BANK LAB ORDER RANDELL Performing Organization Address [facility] Co de Phone Number [facility] * ABO/RH TYPING (12/30/2011 4:25 PM EST) Pathologist [facility] ABORH Type A Pos [facility] Blood specimen (specimen) 12/30/2011 4:25 PM EST 12/30/2011 4:36 PM EST Narrative Resulting Agency Comment Spec In Lab Andi Rene MD BLOOD BANK LAB ORDER RANDELL Performing Organization Address [facility] Co de Phone Number [facility] * Glucose, random (12/30/2011 4:25 PM EST) Pathologist [facility] Glucose 126 60 - 199 mg/dL [facility] Comment:Diabetes: >=200 mg/d L plus symptoms Blood specimen (specimen) 12/30/2011 4:25 PM EST 12/30/2011 4:43 PM EST Narrative Resulting Agency Comment Spec In Lab Andi Rene MD CHEMISTRY ORDERABLES Performing Organization Address [facility] Co de Phone Number [facility] * (ABNORMAL) CBC (with Diff) (12/30/2011 4:25 PM EST) Pathologist [facility] White Blood Cell 18.8(H) 4.0 - 10.0 x10(3)/mc L [facility] Red Blood Cell 4.47(L) 4.63 - 6.08 x10(6)/mc L [facility] MILLEN[facility]UM Hemoglobin 13.7 13.7 - 17.5 gm/dL [facility] MILLENNIUM Hematocrit 39.7(L) 40.0 - 51.0 % [facility] MILLENNIUM Mean Cell Volume 88.8 79.0 - 92.0 fL [facility] MILLENNIUM Mean Cell Hemoglobin 30.6 25.6 - 32.2 pg [facility] MILLENNIUM Mean Cell Hemoglobin Concentration 34.5 32.0 - 36.5 gm/dL [facility] MILLENNIUM Platelet 223 145 - 370 x10(3)/mc L [facility] MILLENNIUM RDW Standard Deviation 42.6 35.0 - 46.0 fL [facility] MILLENNIUM RDW coefficient of variation 13.2 10.9 - 14.4 % [facility] MILLENNIUM Mean Platelet Volume 10.5 9.0 - 12.0 fL [facility] Blood specimen (specimen) 12/30/2011 4:25 PM EST 12/30/2011 4:43 PM EST Narrative Resulting Agency Comment Spec In Lab Andi Rene MD HEMATOLOGY ORDERABLE S Performing Organization Address [facility] de Phone Number [facility] * APTT (12/30/2011 2:08 PM EST) Partial Thromboplastin Time 31 25 - 35 sec [facility] Comment: Recommended therapeutic PTT range for full dose unfractionated heparin is 80-114 seconds. Blood specimen (specimen) 12/30/2011 2:08 PM EST 12/30/2011 2:27 PM EST Narrative Resulting Agency Comment Spec In Lab Andi Rene MD HEMATOLOGY ORDERABLE S Performing Organization Address [facility] Co de Phone Number [facility] * Cardiac Enzymes (12/30/2011 2:08 PM EST) Troponin-T 0.03 <=0.03 ng/mL [facility] Comment: 0.03 ng/mL: Represents the 99th percentile upper reference limit for normals. >0.03 ng/mL: Elevated cardiac troponin T level indicative of myocardial damage. Diagnosis of acute, evolving or recent AL requires a typical rise and gradual fall [...] consensus document of the Joint Society of Cardiology/[place] College of Cardiology Committee for the redefinition of myocardial infarction. Journal of the [place] College of Cardiology 2000; 36: 959-969] Creatine Kinase 72 0 - 200 unit/L ARIAN CERDAIUM Blood specimen (specimen) 12/30/2011 2:08 PM EST 12/30/2011 2:27 PM EST Narrative Resulting Agency Comment Spec In Lab Remigio Ceron MD CHEMISTRY ORDERABLES Performing Organization Address [facility] Co de Phone Number ARIAN CERDAIUM * HIV (12/30/2011 10:18 AM EST) HIV 1/2 Ab Negative ARIAN CERDAIUM Blood specimen (specimen) 12/30/2011 10:18 AM EST 12/30/2011 10:28 AM EST Narrative Resulting Agency Comment Spec In Lab Andi Rene MD CHEMISTRY ORDERABLES Performing Organization Address [facility] Co de Phone Number ARIAN CERDAIUM * Echo Transthoracic (Complete) (12/30/2011 9:47 AM EST) EF 55 HEARTLAB SYSTEM Anatomical Region Laterality Modality Other 12/30/2011 Narrative 12/30/2011 10:02 AM EST Procedure: ? Transthoracic Echocardiogram Patient: ? ZACK AUSTIN P ?(Age): 1975(36) Med Rec#: ?[id number] ? Sex: ?M ? [place] [place] Ht / Wt: ??180(cm)/124(kg) Pt. Loc: ? Adult Floor ?BSA: ?2.41 Study Date: ?12/30/2011 ? Pt. Type: Inpatient Tape: ? Referring: Remigio Ceron File Clerk Data Entry: Benjamin Lundberg Diagnosis: ??Chest pain (786.50) CPT Code(s): ??Spectral Doppler (41592), ??Color Doppler (17269), ??Echo Full (78003), Indication(s): ??Chest Pain Rhythm: HR ?BP ?106/60 [...] report has been electronically signed by: Zak Guerrero. MD Brijesh ? 12/30/2011 10:01:28 Images reviewed and interpretation verified [facility] Cardiac Ultrasound Laboratory Procedure Note Zak Coley MD - 12/30/2011 Procedure: Transthoracic Echocardiogram Patient: ZACK MILLIGAN(Age): 1975(36) Med Rec#: [id number] Sex: M [place] [facility] Ht / Wt: 180(cm)/124(kg) Pt. Loc: Adult Floor BSA: 2.41 Study Date: 12/30/2011 Pt. Type: Inpatient Tape: Referring: Remigio Ceron File Clerk Data Entry: Benjamin Lundberg Diagnosis: Chest pain (786.50) CPT Code(s): Spectral Doppler (93971), Color Doppler (14411), Echo Full (01841), Indication(s): Chest Pain Rhythm: HR BP 106/60 [...] 10:01:28 Images reviewed and interpretation verified [facility] Cardiac Ultrasound Laboratory Remigio Ceron [...] Urine Dipstick Clear Clear CERNER MILLENNIUM Specific [place] Urine Automated 1.019 1.002 - 1.030 CERNER [...] In Lab Andi Rene MD URINE ORDERABLES [facility] MILLENNIUM * Rapid Qual Drug Screen, Urine ([facility] (12/30/2011 9:32 AM EST) Pathologist [facility] U IVAN Screen See Note CERNER MILLENNIUM [...] device is being used in the [facility] Chemistry Laboratory. Please contact the chemistry laboratory at [phone] with questions. Urine specimen (specimen) 12/30/2011 9:32 AM EST 12/30/2011 9:45 AM EST Narrative Resulting Agency Comment Spec In Lab Andi Rene MD URINE ORDERABLES Performing Organization Address City/State/[facility] Phone Number [id number] MILLENNIUM * Urine culture Clean Catch Urine (12/30/2011 9:31 AM EST) Urine Culture ? Patient Name: GEOVANNA DIXON JR Viet ?Ordered By: ANDI RENE ? MR#: [id number] ?LOC: ??[facility] ? /Sex: ?? 4 ([birth year] [...] EST Remigio Ceron MD HEMATOLOGY ORDERABLE S [facility] MILLENNIUM * (ABNORMAL) CBC (with [...] Platelet Volume 10.6 9.0 - 12.0 fL [facility] Blood specimen (specimen) 12/30/2011 7:07 AM EST 12/30/2011 7:18 AM EST Narrative Resulting Agency Comment Spec In Lab Remigio Ceron MD HEMATOLOGY ORDERABLE S ARIAN NELSON * Hemoglobin A1c (12/30/2011 7:07 AM EST) Hemoglobin A1c 6.1 4.3 - 6.1 % [facility] Estimated Average Glucose 128 mg/dL [facility] Comment: eAG equivalents for HbA1c [...] into estimated average glucose values. ??Diabetes Care 2008:31(8):3219-6196. Blood specimen (specimen) 12/30/2011 7:07 AM EST 12/30/2011 7:18 AM EST Narrative Resulting Agency Comment Spec In Lab Remigio Ceron MD CHEMISTRY ORDERABLES Performing Organization Address [facility] Phone Number [facility] * (ABNORMAL) APTT (12/30/2011 5:45 AM EST) Partial Thromboplastin Time 45(H) 25 - 35 sec [facility] Comment: Recommended therapeutic PTT range for full dose unfractionated heparin is 80-114 seconds. Blood specimen (specimen) 12/30/2011 5:45 AM EST 12/30/2011 6:10 AM EST Narrative Resulting Agency Comment Spec In Lab Andi Rene MD HEMATOLOGY ORDERABLE S Performing Organization Address [facility] Phone Number ARIAN [facility] * (ABNORMAL) Glucose, fasting (12/30/2011 5:45 AM EST) Glucose Fasting 108(H) 65 - 99 mg/dL [facility] Comment: ?Fasting* Glucose Interpretive Criteria Normal [...] of Diabetes Mellitus, Position Statement from the [place] Diabetes Association. ??Diabetes Care, Volume 33, Supplement 1, Nov 2009 Blood specimen (specimen) 12/30/2011 5:45 AM EST 12/30/2011 6:10 AM EST Narrative Resulting Agency Comment Spec In Lab Remigio Ceron MD CHEMISTRY ORDERABLES Performing Organization Address [facility] Phone Number [facility] ROBYENNIUM * (ABNORMAL) Triglyceride (12/30/2011 5:45 AM EST) Triglyceride 245(H) <=149 mg/dL [facility] Comment: Reference Range: Normal triglycerides: ??<150 mg/dL Borderline high: ??150-199 mg/dL High: ??200-499 mg/dL Very high: ??>bh=809 mg/dL ELISEO 2001; 285(19):6321-1580 Blood specimen (specimen) 12/30/2011 5:45 AM EST 12/30/2011 6:10 AM EST Narrative Resulting Agency Comment Spec In Lab Remigio Ceron MD CHEMISTRY ORDERABLES [facility] * (ABNORMAL) HDL/Cholesterol Profile (12/30/2011 5:45 AM EST) Cholesterol, Total 170 <=199 mg/dL [facility] Comment: Recommendations of the NCEP Adult Treatment Panel for the following risk cutoff thresholds for the [place] population: Desirable: <200 mg/dL Borderline High: 200-239 mg/dL High: > or = 240 mg/dL HDL Cholesterol 36(L) >=40 mg/dL [facility] Comment: Reference range: ??Low HDL: ?? < 40 mg/dL ??Normal: ?40-60 mg/dL ??Desirable: > 60 mg/dL ELISEO 2001; 285(19):3532-3308 Cholesterol/HDL Ratio 4.7 ratio [facility] Comment: A Cholesterol to HDL ratio below 4:1 is desirable. ??Studies suggest that increased CAD risk occurs at ratios above 5 for females and above 6 for men. ? [place] Heart Association ??(http://www.americanheart.org) ? Jazmine Int Med, 1994; 121:641 ? AM J Med, 1998; 105(1A):48S Blood specimen (specimen) 12/30/2011 5:45 AM EST 12/30/2011 6:10 AM EST Narrative Resulting Agency Comment Spec In Lab Remigio Ceron MD CHEMISTRY ORDERABLES Performing Organization Address [facility] de Phone Number [facility] * (ABNORMAL) LDL Cholesterol, Direct (12/30/2011 5:45 AM EST) Pathologist [facility] LDL Cholesterol, Direct 110(H) <=99 mg/dL [facility] Comment: The National Cholesterol Education Program (NCEP) has set the following guidelines for LDL Cholesterol: Reference range: ?? Optimal: ?<100 mg/dL ?? Near Optimal/Above Optimal: ?? 100-129 mg/dL ?? Borderline high: ?130-159 mg/dL ?? High: ? 160-189 mg/dL ?? Very high: ?>fp=420 mg/dL ELISEO 2001: 285(19):7353-1972 Blood specimen (specimen) 12/30/2011 5:45 AM EST 12/30/2011 6:10 AM EST Narrative Resulting Agency Comment Spec In Lab Remigio Ceron MD CHEMISTRY ORDERABLES Performing Organization Address [facility] de Phone Number [facility] * (ABNORMAL) Cardiac Enzymes (12/30/2011 5:45 AM EST) [facility] Troponin-T 0.05(H) <=0.03 ng/mL [facility] Comment: 0.03 ng/mL: Represents the 99th percentile upper reference limit for normals. >0.03 ng/mL: Elevated cardiac troponin T level indicative of myocardial damage. Diagnosis of acute, evolving or recent AL requires a typical rise and gradual fall [...] consensus document of the Joint Society of Cardiology/[place] College of Cardiology Committee for the redefinition of myocardial infarction. Journal of the [place] College of Cardiology 2000; 36: 959-969] Creatine [...] (12/29/2011 11:29 PM EST) Plat estimate Normal ARIAN CAENNIUM RBC Morphology Normal CERNE R ROBYENNIUM Blood specimen (specimen) 12/29/2011 11:29 PM [...] x10(3)/mc L CERNER ROBYENNIUM Blood specimen (specimen) 12/29/2011 11:29 PM EST 12/29/2011 11:34 PM EST Remigio Ceron MD HEMATOLOGY ORDERABLE S Performing Organization Address [facility] Co de Phone Number ARIAN NELSON * (ABNORMAL) Cardiac Enzymes (12/29/2011 11:29 PM EST) Troponin-T 0.08(H) <=0.03 ng/mL ARIAN [employer] Comment: 0.03 ng/mL: Represents the 99th percentile upper reference limit for normals. >0.03 ng/mL: Elevated cardiac troponin T level indicative of myocardial damage. Diagnosis of acute, evolving or recent AL requires a typical rise and gradual fall [...] consensus document of the Joint Society of Cardiology/[place] College of Cardiology Committee for the redefinition of myocardial infarction. Journal of the [place] College of Cardiology 2000; 36: 959-969] Creatine Kinase 86 0 - 200 unit/L ARIAN LoudrKEENA Blood specimen (specimen) 12/29/2011 11:29 PM EST 12/29/2011 11:34 PM EST Narrative Resulting Agency Comment Spec In Lab Remigio Ceron MD CHEMISTRY ORDERABLES Performing Organization Address [facility] Co de Phone Number ARIAN NELSON * Prothrombin Time (12/29/2011 11:29 PM EST) Prothrombin Time 13.2 11.9 - 14.7 sec ARIAN [employer] Comment: [facility] Transfusion Committee Guidelines: INR less than [...] Lab Remigio Ceron MD HEMATOLOGY ORDERABLE S [facility] MILLENNIUM * Hepatic Function Panel (12/29/2011 11:29 PM [...] Ceron MD CHEMISTRY ORDERABLES Performing Organization Address [facility] Co de Phone Number CERNER ROBYENNIUM * pro-Brain Natriuretic Peptide (12/29/2011 11:29 PM EST) NT-proBNP 114 <=125 pg/mL CERNER MILLENNIUM Blood specimen (specimen) 12/29/2011 11:29 PM EST 12/29/2011 11:34 PM EST Narrative Resulting Agency Comment Spec In Lab Remigio Ceron MD CHEMISTRY ORDERABLES [facility] ROBYENNIUM * TSH (12/29/2011 11:29 PM EST) Thyroid Stimulating Hormone 0.39 0.27 - 4.20 mcIU/mL CERNER MILLENNIUM Blood specimen (specimen) 12/29/2011 11:29 PM EST 12/29/2011 11:34 PM EST Narrative Resulting Agency Comment Spec In Lab Remigio Ceron MD CHEMISTRY ORDERABLES Performing Organization Address [facility] Phone Number CERBRIAN CAENNIUM * Phosphorus (12/29/2011 11:29 PM EST) Phosphorus 3.1 2.5 - 4.5 mg/dL CERNER MILLENNIUM Blood specimen (specimen) 12/29/2011 11:29 PM EST 12/29/2011 11:34 PM EST Narrative Resulting Agency Comment Spec In Lab Remigio Ceron MD CHEMISTRY ORDERABLES Performing Organization Address [facility] Phone Number CERBRIAN CAENNIUM * Magnesium (12/29/2011 11:29 PM EST) Magnesium 0.83 0.69 - 1.07 mmol/L CERNER MILLENNIUM Blood specimen (specimen) 12/29/2011 11:29 PM EST 12/29/2011 11:34 PM EST Narrative Resulting Agency Comment Spec In Lab Remigio Ceron MD CHEMISTRY ORDERABLES Performing Organization Address [facility] de Phone Number CERBRIAN CAENNIUM * [...] Cell 18.5(H) 4.0 - 10.0 x10(3)/mc L [facility] MILLENNIUM Red Blood Cell 4.50(L) 4.63 - 6.08 x10(6)/mc L [facility] MILLENNIUM Hemoglobin 13.9 13.7 - 17.5 gm/dL [facility] MILLENNIUM Hematocrit 39.6(L) 40.0 - 51.0 % CERNER MILLENNIUM Mean Cell Volume 88.0 79.0 - 92.0 fL CERNER MILLENNIUM Mean Cell Hemoglobin 30.9 25.6 - 32.2 pg CERNER MILLENNIUM Mean Cell Hemoglobin Concentration 35.1 32.0 - 36.5 gm/dL [facility] MILLENNIUM Platelet 221 145 - 370 x10(3)/mc L [facility] MILLENNIUM RDW Standard Deviation 42.0 35.0 - 46.0 fL CERNER MILLENNIUM RDW coefficient of variation 13.0 10.9 - 14.4 % CERNER MILLENNIUM Mean Platelet Volume 10.5 9.0 - 12.0 fL [facility] MILLENNIUM Blood specimen (specimen) 12/29/2011 11:29 PM EST 12/29/2011 11:34 PM EST Narrative Resulting Agency Comment Spec In Lab Remigio Ceron MD HEMATOLOGY ORDERABLE S Performing Organization Address [facility] de Phone Number [facility] * APTT (12/29/2011 11:29 PM EST) Partial Thromboplastin Time 34 25 - 35 sec [facility] MILLENNIUM Comment: Recommended therapeutic PTT range for full dose unfractionated heparin is 80-114 seconds. Blood specimen (specimen) 12/29/2011 11:29 PM EST 12/29/2011 11:34 PM EST Narrative Resulting Agency Comment Spec In Lab Remigio Ceron MD HEMATOLOGY ORDERABLE S Performing Organization Address [facility] Co de Phone Number [facility] * EKG 12 Lead (12/29/2011 11:13 PM EST) Ventricular rate 108 BPM MUSE SYSTEM Atrial Rate 108 BPM MUSE SYSTEM P-R Interval 150 ms MUSE SYSTEM QRS Duration 106 ms MUSE SYSTEM Q-T Interval 340 ms MUSE SYSTEM QTC Calculated (Bezet) 455 ms MUSE SYSTEM Calculated P [place] 19 degrees MUSE SYSTEM Calculated R [place] 31 degrees MUSE SYSTEM Calculated T [place] 51 degrees MUSE SYSTEM INTERPRETATION Sinus tachycardia [...] Coronary atherosclerosis of unspecified type of vessel, capitan grande band or graft documented in this encounter Administered [...] dose on Wed01/04/12 at 2100, Until Discontinued, [employer] teeth., Routine Given 01/05/2012 9:00 AM EST [...] than 145 sec X 2 - call charhouse worker See Bolus dosing guidance for aPTT values [...] than 145 sec X 2 - call charhouse worker See Bolus dosing guidance for aPTT values [...] than 145 sec X 2 - call charhouse worker See Bolus dosing guidance for aPTT values [...] BP less than 90 mmHg . Call charhouse worker for additional fluid orders: pager #[phone]. Rate/Dose Verify 01/05/2012 2:00 AM EST 125 [...] 1 dose, On Angelita 01/07/12 at 1015 1015 (Given - Provider: Michelle [...] on Wed01/05/12 at 1200, Until Discontinued, Routine 899 (Given - Provider: Michelle Chong RN)2008 (Given - Provider: Hermila Dumas RN) 899 (Given - Provider: Michelle Chong RN)2000 (Given [...] Routine 899 (Given - Provider: Michelle Chong RN)1499 [...] Provider: Hermila Dumas RN)0605 (Given - Provider: Hremila Dumas RN)0916 (Given - Provider: Michelle Chong [...] Routine documented in this encounter Care Teams Sign Language Teacher Relationship Specialty Start Date End Date Patric Al MD PCP - General 12/29/11 02/26/19 documented as of this encounter
--- OUTSIDE RECORDS SUMMARY | 2024-09-20 08:26 | XMS_ITS | Encounter Summary ---
Author Organization [facility] Address [facility] [place] [address] Care Team Providers Care Loom Fixer Supervisor Name Role Phone Guanako Gusman MD Primary Care Provider [phone] Encounter Details Date Type Department Care Team (Late st Contact Info) Description 01/04/2012 [place] [id number] Unknown None Social History Tobacco Use Types [...] QUIANA Llanos ?(Age): () ? Med Rec#: ?[id number] ? Sex: ? Site Loc: ? Ht / Wt: ??(cm)/(kg) ? Pt. Loc: ?BSA: ? Study Date: ?01/04/2012 ? Pt. Type: Tape: ? Referring: BASILIO Referring: Alfonso Morales Reading: Rodrigo Montgomery ([id number]) Performing: Rodrigo Montgomery ([id number]) Oil Separator: KEVIN Diagnosis:CPT Code(s): Indication(s):Rhythm: SUMMARY: 1. Intraoperative [...] ? Mid-Inferior ?Normal ? Mid-Inferoseptal ?Normal ? [place]-Septal ? Normal ? [place]-Anterior ? Normal ? [place]-Lateral ?Normal ? [place]-Inferior ? Normal ? [place]-Tip ?Normal ? Chambers ?Value ?Units (Range) ? LV EF Est ? 60 ? % (55 to 80) ? This report has been electronically signed by: Rodrigo Montgomery MD ? 01/04/2012 15:48:22 Images reviewed and interpretation verified [facility] Cardiac Ultrasound Laboratory Procedure Note Unknown - 01/04/2012 Procedure: Transesophageal Echocardiogram Patient: QUIANA MILLIGAN(Age): () Med Rec#: [id number] Sex: Site Loc: Ht / Wt: (cm)/(kg) Pt. Loc: BSA: Study Date: 01/04/2012 Pt. Type: Tape: Referring: BASILIO Referring: Alfonso Morales Reading: Rodrigo Montgomery ([id number]) Performing: Rodrigo Montgomery ([id number]) Oil Separator: KEVIN Diagnosis:CPT Code(s): Indication(s):Rhythm: SUMMARY: 1. Intraoperative [...] Normal Mid-Posterolateral Normal Mid-Inferior Normal Mid-Inferoseptal Normal [place]-Septal Normal [place]-Anterior Normal [place]-Lateral Normal [place]-Inferior Normal [place]-Tip Normal Chambers Value Units (Range) LV EF Est 60 % (55 to 80) This report has been electronically signed by: Rodrigo Montgomery MD 01/04/2012 15:48:22 Images reviewed and interpretation verified [facility] Cardiac Ultrasound Laboratory Unknown ECHO ORDERABLES documented in this encounter Visit Diagnoses Not on filedocumented in this encounter Care Teams Loom Fixer Supervisor Relationship Specialty Start Date End Date Guanako Gusman MD PCP - General 12/29/11 02/26/19 documented as of this encounter
--- OUTSIDE RECORDS SUMMARY | 2024-09-20 08:27 | XMS_ITS | Encounter Summary ---
Author Organization [facility] Address [facility] [place] [address] Care Team Providers Care Embedded Systems Designer Name Role Phone Guanako Gusman MD Primary Care Provider [phone] Encounter Details Date Type Department Care Team (Late st Contact Info) Description 01/04/2012 12:13 PM EST Anesthesia Event [place] [id number] Rodrigo Montgomery MD [facility] [place] [address] Anesthesia Record Procedure Summary Procedure Name Responsible [...] to dependent drainage (placed by Mari); 01/06/12; 03101/04/12 0000 by Akanksha Tracy RN 01/06/12 0315 [...] 01/04/12; Removal Time: 191301/04/12 0000 by Vangie Castro RRT 01/04/121913 by Bhumi Goldberg RCP documented in [...] & ARTERIAL GRAFT;SINGLE VEIN GRAFT Patient location: [facility] Surgical Floor Post-op pain: Adequate analgesia Post-op [...] ROS comment: +TOB Cardiovascular (+) hypertension, past [place], CAD, angina, WHITTAKER, (-) valvular problems/murmurs and [...] on filedocumented in this encounter Care Teams Embedded Systems Designer Relationship Specialty Start Date End Date Guanako Gusman MD PCP - General 12/29/11 02/26/19 documented as of this encounter
--- OUTSIDE RECORDS SUMMARY | 2024-09-20 08:27 | XMS_ITS | Encounter Summary ---
Author Organization [facility] [place] [address] Care Team Providers Care Forgeman Helper Name Role Phone Guanako Gusman MD Primary Care Provider [phone] Encounter Details Date Type Department Care Team (Late st Contact Info) Description 12/31/2011 2:00 PM EST Office [place] [address] Dai Iglesias [place] Social History Tobacco Use Types Packs/Day [...] on filedocumented in this encounter Care Teams Forgeman Helper Relationship Specialty Start Date End Date Guanako Gusman MD PCP - General 12/29/11 02/26/19 documented as of this encounter
--- OUTSIDE RECORDS SUMMARY | 2024-09-20 08:27 | XMS_ITS | Encounter Summary ---
Author Organization [facility] Address [facility] [place] [address] Care Team Providers Care Display Designer Outside Name Role Phone Guanako Gusman MD Primary Care Provider [phone] Encounter Details Date Type Department Care Team (Late st Contact Info) Description 01/01/2012 11:59 PM EST Anesthesia Event [place] [phone] Reny Melchor MD [facility] [place] [address] Anesthesia Record Procedure Summary Procedure Name Responsible [...] vein (top of hand), left; Anatomical Landmarks; windy zaragoza; distraction, tolerated well, appears comfortable 08/01/24 0637 by Windy Zaragoza, RN PIV 08/01/24; 0750; 18 g auge; cephalic vein (lateral side of arm), right; Lynnette 08/01/24 0750 by Marko Mckeon CRNA Incision 08/01/24; 0832; Left , lower, medial; leg; vertical 08/01/24 0832 by Smooth Parson RN Incision 08/01/24; 0833; Left ; groin; vertical 08/01/24 0833 by Smooth Parson RN documented in this encounter Social History [...] ROS comment: +TOB Cardiovascular (+) hypertension, past [place], CAD, angina, WHITTAKER, (-) CHF ROS comment: [...] on filedocumented in this encounter Care Teams Display Designer Outside Relationship Specialty Start Date End Date Guanako Gusman MD PCP - General 12/29/11 02/26/19 documented as of this encounter
--- OUTSIDE RECORDS SUMMARY | 2024-09-20 08:27 | XMS_ITS | Encounter Summary ---
Author Organization [facility] Address [facility] [place] [address] Care Team Providers [address] Glassware Replacer Name Role Phone Patric Al MD Primary Care Provider [phone] Encounter Details Date Type Department Care Team (Late st Contact Info) Description 12/30/2011 9:30 AM EST - 12/30/2011 10:51 AM EST Surgery Vending [place] [address] Sarthak Oliveros MD [facility] [address] [place] [address] CARDIAC CATHETERIZATION Social History Tobacco Use Types [...] 12:11 PM EST Geovanna Dixon Jr. 1975 [id number] New Diagnosis of Pre-Diabetes For discharge should [...] Some considerations about using metformin in Prediabetics: [place] Diabetes Prevention Program (DPP) as well as other minor studies and meta-analyses has convincingly demonstrated the efficacy of metformin in this patient group [pre-diabetics]. 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 Increase in insulin resistance with tobacco use. Darcie Lange APRN [facility] Endocrinology Diabetes Management [phone] * Patient Instructions* Ricky Graham PA - [...] Anne Tovar and/or the Cardiothoracic Surgery Physician Laborer Shipyard Team may be reached at . Activity [...] Dr. Inna Tovar. You may use a Bowler Track or treadmill but avoid any pulling [...] friends, go to a movie, go to bahai, etc. Heavy activities: No hunting, skiing, jogging, [...] would be to continue to go Cold Breeding. He has quit this way before and [...] only 10% of those who quit Cold Breeding are able to be successful. The calculated savings once he quits smoking would be $54 a week, $234 a month, and $2803 a year. If he quits now his savings will be $28,030 in 10 years. The patient was provided with a [facility] Smoking Cessation packet and the contents have been reviewed with him. The patient now has the Quit line number for [place] and has also been encouraged to use [...] given to patient. Discharge summary faxed to [facility] and receipt confirmed via phone. Patient discharged [...] outpatient basis Equipment needs: none ADEBAYO MCGARRY, XIN Pager: [phone] Physical Therapy Rehabilitation Department * Michelle Chong [...] services. Patient would like VNA services through [facility]. PHONE: [phone] FAX: [phone]. Referral made via E-discharge. Please see home care orders that must be included in discharge summary for VN services to start. Patient has glucometer and supplies at bedside. Pt. Denies any further needs from CRC. Pt. Gets scripts through [place] Medicaid with co-pay. He denies any concerns related to co-pay. * Andreageorgiana Skinner, NETWORK OPERATIONS LEAD - 01/07/2012 9:57 AM EST Geovanna Dixon Jr. 1975 [id number] PATRIC [place] MD Follow Up Diabetes Consult [...] Some considerations about using metformin in Prediabetics: [place] Diabetes Prevention Program (DPP) as well as other minor studies and meta-analyses has convincingly demonstrated the efficacy of metformin in this patient group [pre-diabetics]. 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 Christina Brody. 25 min time spent in patient care with 20 counseling, seeing patient, changing orders and discussion with the patient and the primary team as well as nursing. * Inna Tovar MD - 01/07/2012 9:39 AM EST Cardiac Surgery Progress Note: ID: [id number] 36/M POD #[address] Tovar [...] results found for this basename: phart, po2art, pgi2cno Assessment/Plan: Pathway. Neuro: ambulating on own per [...] present. Plan D/C tomorrow or Wednesday. * JulianaNam, PT - 01/07/2012 12:00 AM EST Physical [...] home. (ie take out the trash or order picker/assembler his child) Objective:Pt was seen today for [...] interventions: 30 minutes NAM TRINIDAD, PT Pager: [phone] Physical Therapy Rehabilitation Department IR * Vibha Martines APRN - 01/06/2012 4:25 [...] FOR CABG performed by INNA TOVAR at [facility] MAIN OR ??? Cabg, artery-vein, single 01/04/2012 @CABG, VENOUS & ARTERIAL GRAFT;SINGLE VEIN GRAFT performed by INNA TOVAR at [facility] MAIN OR Outpatient prescriptions marked [...] yes Date: 12/29/11 Why then: Admission to [facility] What will be different this time: Just [...] in places where it is forbidden ex bahai No Yes 0 3. Which cigarette would [...] would be to continue to go Cold Breeding. He has quit this way before and it lasted several years, so he has a history of being successful with this method. He also pointed out that his father and an uncle quit (for now over 10 years) by going Cold Breeding. I told him that it is difficult to recommend a quit method that has a 90% failure rate, but that said, it is his choice and that I would provide him with a toolkit of information so that he will be as knowledgeable as possible about nicotineaddiction and how to stay quit. And we do know that 10% of those who quit Cold Breeding are able to be successful. I calculated and shared with him that his savings once he quits smoking would be $54 a week, $234 amonth, and $2803 a year. If he quits now his savings will be $28,030 in 10 years. The patient has also been provided with a [facility] Smoking Cessation packet and the contents have been reviewed with him. The patient now has the Quit line number for [place] and has also been encouraged to use this if needed for support. In addition he was in agreement with a referral to the [place] Quitnetworkand I have FAXed a referral to [...] Nutrition Intervention: Hospital Day 9 Diet Order: [facility] Appetite: fair Food allergies: none Chewing/Swallowing difficulty: none Height: (cm) 180.3 Weight: (kg) 127.9 01/06/12 Wt hx: (kg) 124.5 12/29/11 BMI: 38.4 Education: [facility] dietary guidelines. Tips To Better Food Intake (Protein) dietary guidelines. Verbalized good understanding. Education material, with means of contact provided. Assessment: Patient verbalized good understanding of protein needs for healing as well as [facility] Heart Healthy guidelines. I have added high protein snacks between meals and CIB shakes to meal trays for extra protein/nutrition. Nutrition Plan: Diet: [facility] Recommend Daily Multi Vitamins. Added high protein snacks. CIB w/skim milk shakes three times per day. Encourage good po intake. Monitor weight. Support and encouragement provided. Nutrition services to follow weekly thru hospital course unless consulted in the interim. ACOSTA SMALL * Inna Tovar MD - 01/06/2012 1:50 PM EST Cardiac Surgery In Patient Progress Note Patient Name: Geovanna Dixon Jr. : [id number] MR#: [id number] Admitted: 12/29/2011 Hospital Day 8 days Problem [...] Hamlin RN - 01/06/2012 10:11 AM EST [facility] CARDIAC REHABILITATION Geovanna Dixon Jr. was seen today regarding participation in outpatient Phase 2 Cardiac Rehabilitation at [facility] . A referral will be sent to this program. The patient was given contact information and should expect to be contacted by the program within 1-2 weeks after discharge from [facility]. * Kareen Mendoza, PT - 01/05/2012 3:59 [...] FOR CABG performed by INNA TOVAR at [facility] MAIN OR ??? Cabg, artery-vein, single 01/04/2012 @CABG, VENOUS & ARTERIAL GRAFT;SINGLE VEIN GRAFT performed by INNA TOVAR at [facility] MAIN OR Social History: Patient lives [...] minutes brief evaluation KAREEN MENDOZA, PT Pager: [phone] Physical Therapy Rehabilitation Department * Camille Angulo [...] A: medical plan still evolving. P: This newspaper writer or colleague from the Office of [...] FULL CODE Paola Akers PGY 1 Pager [phone] Attending Addendum: I spoke with the patient and his family briefly this am. I agree with the principal findings. The impression and plan incorporate my input. No contraindication to surgery today. Sarthak Pollard MD [facility] pager [phone] * Sarthak Pollard MD - 01/03/2012 11:08 [...] risk of aggravating CAD. Sarthak Pollard MD [facility] pager [phone] * Bal John MD - 01/02/2012 3:10 [...] ??F) Oral 84 16 98 % - 02/24/12 2012 109/75 mmHg 36.6 ??C (97.9 ??F) [...] 0647) ??? sodium chloride 0.9% 1,000 mL (12/30/1115) [...] Cristina Ambriz MD PGY1, Internal Medicine Pager [phone] 01/02/2012 Attending Addendum: I have interviewed and examined the patient. I agree with the principal findings. The impression and plan incorporate my input. As above, doing well. Will keep on heparin until surgery. No angina, HF, bleeding, or evidence of HIT. Sarthak Pollard MD [facility] pager [phone] * Inna Tovar MD - 01/01/2012 3:17 PM EST Please see Dr. Major's note from 12/31/11 for full details. Briefly, Mr. Dixon developed unstable angina and ruled in for MS. Cath shows severe 3 vessel disease. Echo [...] mg BID Paola Akers PGY 1 Pager [phone] Attending Addendum: I have interviewed and examined the patient. I agree with the principal findings. The impression and plan incorporate my input. He is disappointed that his surgery has been postponed until Wednesday butunderstands. He remains cp free. I've reviewed his angiograms and believe he needs to stay on heparin until surgery. All questions answered. Sarthak Pollard MD [facility] pager [phone] * Andi Rene MD - 12/31/2011 5:20 PM EST CARDIOLOGY INPATIENT PROGRESS NOTE Geovanna Llanos Zack Heart SUMMARY: Geovanna Dixon JrFlorencio is a 36 y.o. male with: NSTEMI, fevers, cath showed severe 3 vessel disease, now being evaluated for CABG Patient Active Problem List Diagnoses Code ??? Chest pain 786.50F ??? HTN (hypertension) 401.9AF ??? Hyperlipidemia 272.4S ??? Depression 311L ??? Narcolepsy 347.00B 24 HOUR EVENTS: - Admitted yesterday for chest pain as a transfer from [facility] - Cardiac cath yesterday showed significant [...] mg BID Paola Akers PGY 1 Pager [phone] Cardiology Attending Progress Note Addendum: I have [...] would like to attend cardiac rehab at [facility] in [facility]. We will meet him again [...] Call saucedo within reach, family at bedside. [phone]) Patient off unit to XRAY with transpo & CONCIERGE RECEPTIONIST. documented in this encounter H&P Notes * [...] Lives on social security in house in [facility] with two children (18 and 4, and one step child) Active pack per day smoker (27pack year history) No etoh No drugs Enjoys riding motorcycles and hunting He is NOT a church FHx: Heart disease on both sides of the family Father's side with multiple uncles with MS's, one at age of 40 Mother's side with uncle at age 50 from MS Diabetes in mother ROS: Positive headache, nausea [...] 13.2 12/29/2011 PTT 31 12/30/2011 Troponins at [facility]: 0.05-->0.03 Imaging: Echo 12/30/11: 1. The left [...] loss were emphasized as they relate to long-term patency of his grafts. He should receive smoking cessation counseling donya. One post op consideration will be vent wean and respiratory status given likely underlying CAMILLA and his known narcolepsy. Pre op orders written, heparin gtt to stop advanced manufacturing consultant to OR. Pt seen and interviewed with [...] +active 25 pack year smoker comes to [facility] from [facility] for evaluation of intermittent CP since [...] history (both paternal grandparents passing away from [facility] and paternal aunts/uncles with histories of [...] FULL Provider: REMIGIO CERON MD Pager #: [phone] documented in this encounter Procedure Notes * Provider, Scanning - 01/10/2012 1:46 PM ESTAssociated Order(s): SCAN DOC: OIL FIELD WORKER * Provider, Scanning - 01/10/2012 1:46 PM [...] EST * Consult Note - Darcie Lange, NETWORK OPERATIONS LEAD - 01/06/2012 3:45 PM EST Geovanna Dixon Jr. 1975 [id number] Inpatient Endocrinology Glucose Management Consult Date of Consultation: 01/06/2012 Place of Consultation: [facility] Consult Requested by: Dr. Tovar, MD Surgery Reason for Consultation: Geovanna Dixon Jr. is a 36 y.o. male who was admitted on 12/29/2011 for the diagnosis of CAD now s/p CABG x2 with Dr. Tovar, POD #2. 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 Diabetes History: Geovanna Dixon Jr. [...] Diabetes Care: Medications: None Monitoring: None Diet: [facility] Healthy No Known Allergies Past Medical History: [...] considerations about using metformin in Prediabetics: ?? [place] Diabetes Prevention Program (DPP) as well as other minor studies and meta-analyses hasconvincingly demonstrated the efficacy of metformin in this patient group [pre-diabetics]. In addition, results of the 10 year DPP follow up have recently been published, demonstrating the long-term safety and sustainability of metformin treatment benefits [...] - will be starting Cardiac rehab at [facility], encouraged to increase physical activity as [...] metformin 500 mg QD Darcie Lange APRN [facility] Endocrinology Diabetes Management [phone] Pager [phone] This case was discussed with Dr. Christina [...] urine output * Plan of Care - Jeaninne Pichardo RN - 01/04/2012 5:36 PM EST [...] postoperative effusion or hematoma. Hospital Course: Geovanna Shahmonika Heart was admitted to [facility] on 12/29/2011 to the cardiologyservice for [...] Medications: Geovanna Dixon Jr. Home Medication Instructions CRAIG:[id number] Printed on:01/08/12 1206 Medication Information simvastatin (ZOCOR) 20 mg tablet [...] Anne Tovar and/or the Cardiothoracic Surgery Physician Laborer Shipyard Team may be reached at . Activity [...] Dr. Inna Tovar. You may use a Bowler Track or treadmill but avoid any pulling [...] friends, go to a movie, go to bahai, etc. Heavy activities: No hunting, skiing, jogging, [...] would be to continue to go Cold Breeding. He has quit this way before and [...] only 10% of those who quit Cold Breeding are able to be successful. The calculated savings once he quits smoking would be $54 a week, $234 a month, and $2803 a year. If he quits now his savings will be $28,030 in 10 years. The patient was provided with a [facility] Smoking Cessation packet and the contents have been reviewed with him. The patient now has the Quit line number for [place] and has also been encouraged to use this ifneeded for support. In addition he was in agreement with a referral to the [place] Quitnetwork and a referral was faxed to [...] Some considerations about using metformin in Prediabetics: [place] Diabetes Prevention Program (DPP) as well as other minor studies and meta-analyses has convincingly demonstrated the efficacy of metformin in this patient group [pre-diabetics]. In addition, results of the 10 year DPP follow up have recently been published, demonstrating the long-term safety and sustainability of metformin treatment benefits [...] - will be starting Cardiac rehab at [facility], encouraged to increase physical activity as advised by cardiologists Weight Loss - A 7% weight loss could significantly improve his BG control Tobacco cessation - There is growing evidence that cigarette smokers are more prone than the general population to develop T2DM. Increase in insulin resistance with tobacco use. Darcie Lange APRN [facility] Endocrinology Diabetes Management [phone] Medications: Take only those medications listed on [...] should resume a low fat, low cholesterol, [place] Heart Association Diet. Driving: No driving for [...] in outpatient Phase 2 Cardiac Rehabilitation at [facility] . A referral will be sent to this program. He was given contact information and shouldexpect to be contacted by the program within 1-2 weeks after discharge from [facility]. Arrangements for VNA/home care: PATIENT'S LOCATION: Geovanna Dixon Jr. [address] [place] [address] There is no home phone number on file. Telephone Information: In discussion with the attending physician, it is certified that this patient is under their care and that they, or a nurse practitioner, clinical nurse specialist or physician's captain's assistant who is working directly with them, [...] for services as follows: HOME HEALTH AGENCY: [facility]. PHONE: [phone] FAX: [phone] RN orders: Cardiopulmonary assessment, incisional assessment, assess [...] issues please call the Cardiac SurgeryOffice at [phone] FOR MEDICARE ONLY: (please delete this section [...] nurse practitioner, clinical nurse specialist or physician's captain's assistant who is working directly with them, [...] from this patient's PCP: PATRIC [place] MD [phone] All VNA agencies which cover the area of patient's residence have been reviewed, either verbally feli writing, and patient/family have chosen the indicated home health care agency for home services. Comments: Questions: Responses: Agency name and contact information [facility] Patient location post discharge home What services are requested Start date 01/10/2012 Responsible MD post discharge contact info PCP RN to remove chest tube sutures on or after 01/13/12. Signed: Ricky Graham PA-C [facility] Section of Cardiothoracic Surgery Date: 01/08/12 CC: MD CARL[facility] MEN[facility]Z [facility] EMERGENCY DEPT [address] [place] [address] [place] [address] * Op Note - Inna Tovar MD - 01/04/2012 3:55 PM EST [facility] Operative Note Patient Name: Geovanna Dixon Jr. : [id number] MR#: [id number] Case Date: 01/04/2012 Surgeon: Surgeon(s) and Role: [...] enlarged. There was diffuse disease in all tribe vessels. The OFELIA and vein were of excellent quality. The lungs had early emphysematous changes. Procedure Details: The patient was brought to the operating room and given general anesthesia. A Warbranch-Haley catheter, radial arterial line, and Mendez catheter [...] for adequate hemostasis, two #28 Citizen Of [place] chest tubes were placed and brought out [...] Note Patient Name: Geovanna Dixon Jr. : [id number] MR#: [id number] Case Date: 01/04/2012 Surgeon: Surgeon(s) and Role: [...] Htn, Hld and nicotine dependence transferred from 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 No recent out door activities [...] likely. (Leukocytosis may be r/t stress of MS.) Bacteremia as a complication of his cath, [...] EST LAB SCAN 01/10/2012 1:46 PM EST OIL FIELD WORKER SCAN 01/10/2012 1:46 PM EST CARDIAC CATH [...] 12/30/2011 4:25 PM EST TYPE AND SCREEN ([facility]/CGP/BABITA) Routine 12/30/2011 4:14 PM EST CARDIAC ENZYMES ([facility]/CGP) STAT 12/30/2011 2:08 PM EST APTT STAT 12/30/2011 2:08 PM EST HIV SCREEN, 4TH GENERATION ([facility]/CGP/APD/NLH) Routine 12/30/2011 10:18 AM EST ECHOCARDIOGRAM TRANSTHORACIC [...] Routine 12/30/2011 7:07 AM EST CARDIAC ENZYMES ([facility]/CGP) STAT 12/30/2011 5:45 AM EST APTT STAT [...] (Bezet) 453 ms MUSE SYSTEM Calculated P [place] 41 degrees MUSE SYSTEM Calculated R [place] 25 degrees MUSE SYSTEM Calculated T [place] 74 degrees MUSE SYSTEM INTERPRETATION Sinus tachycardia [...] SCAN EXT O RDR/RSLT * SCAN DOC: OIL FIELD WORKER (01/10/2012 1:46 PM EST) Anatomical Region Laterality Modality Other Narrative 01/11/2012 8:32 AM EST Procedure Note Provider, Scanning - 01/10/2012 1:46 PM EST Scanning Provider MEDIA MGR SCAN EXT O RDR/RSLT * POCT GLUCOSE LAB USE ONLY (01/08/2012 12:00 PM EST) Glucose, POC 106 60 - 199 mg/dL [facility] Comment: Supplemental ranges: <110 mg/dL before meals <200 mg/dL all other times of the day Blood specimen (specimen) 01/08/2012 12:00 PM EST 01/08/2012 12:00 PM EST Andi Rene MD POINT OF CARE TEST O RDERABLES Performing Organization Address [facility] Co de Phone Number [facility] * Potassium (01/08/2012 10:05 AM EST) Potassium 4.2 3.5 - 5.0 mmol/L [facility] Comment: Please note: ??Patients with [...] Tovar MD CHEMISTRY ORDERABLES Performing Organization Address City/[facility] Co de Phone Number [facility] * POCT GLUCOSE LAB USE ONLY (01/08/2012 7:21 AM EST) Glucose, POC 144 60 - 199 mg/dL [facility] Comment: Supplemental ranges: <110 mg/dL before meals <200 mg/dL all other times of the day Blood specimen (specimen) 01/08/2012 7:21 AM EST 01/08/2012 7:21 AM EST Andi Rene MD POINT OF CARE TEST O GILDA Performing Organization Address [facility] de Phone Number [facility] * POCT GLUCOSE LAB USE ONLY (01/07/2012 8:43 PM EST) Glucose, POC 179 60 - 199 mg/dL [facility] Comment: Supplemental ranges: <110 mg/dL before meals <200 mg/dL all other times of the day Blood specimen (specimen) 01/07/2012 8:43 PM EST 01/07/2012 8:43 PM EST Andi Rene MD POINT OF CARE TEST O GILDA Performing Organization Address [facility] de Phone Number [facility] * POCT GLUCOSE LAB USE ONLY (01/07/2012 4:47 PM EST) Glucose, POC 128 60 - 199 mg/dL [facility] Comment: Supplemental ranges: <110 mg/dL before meals <200 mg/dL all other times of the day Blood specimen (specimen) 01/07/2012 4:47 PM EST 01/07/2012 4:47 PM EST Andi Rene MD POINT OF CARE TEST O GILDA Performing Organization Address [facility] Phone Number [facility] * Potassium (01/07/2012 11:42 AM EST) Potassium 3.6 3.5 - 5.0 mmol/L [facility] Comment: Please note: ??Patients with [...] Tovar MD CHEMISTRY ORDERABLES Performing Organization Address [facility] Co de Phone Number [facility] [facility] POCT GLUCOSE LAB USE ONLY (01/07/2012 11:41 AM EST) Glucose, POC 114 60 - 199 mg/dL [facility] Comment: Supplemental ranges: <110 mg/dL before meals <200 mg/dL all other times of the day Blood specimen (specimen) 01/07/2012 11:41 AM EST 01/07/2012 11:41 AM EST Andi Rene MD POINT OF CARE TEST O RDERABLES Performing Organization Address [facility] Co de Phone Number [facility] * XR chest routine PA & lateral [...] USE ONLY (01/07/2012 8:00 AM EST) Pathologist [facility] [place] Glucose, POC 116 60 - 199 mg/dL CERNER MILLENNIUM Comment: Supplemental ranges: <110 mg/dL before meals <200 mg/dL all other times of the day Blood specimen (specimen) 01/07/2012 8:00 AM EST 01/07/2012 8:00 AM EST Andi Rene MD POINT OF CARE TEST O RDERABLES CERNER MILLENNIUM * (ABNORMAL) DIFFERENTIAL, AUTOMATED (01/07/2012 4:11 AM EST) Pathologist [facility] [place] Neutrophil % 78.1(H) 34.0 - 71.0 % [...] Lab Sarthak Pollard MD CHEMISTRY ORDERABLES ARIAN CERDAIUM * (ABNORMAL) CBC (with Diff) (01/07/2012 [...] HEMATOLOGY ORDERABLE S Performing Organization Address City/[facility] Co de Phone Number CERNER MILLENNIUM * Microalbumin, urine, random (01/06/2012 9:03 PM EST) Creatinine, Urine 136 mg/dL CE RNER MILLENNIUM Albumin, Urine 14.4 mg/L CERNE R MILLENNIUM Albumin / Creatinin Ratio, Urine 11 mcg/mg Cr CERNER MILLENNIUM Comment: Reference Range* Random collection (mcg/mg creatinine) Normal ?<30 Microalbuminuria ?? 30 - 300 Clinical Albuminuria ?? >300 *[place] [employer]. Diabetic Nephropathy. Diabetes Care 1997;(Suppl 1):S24-S27 Exercise within 24 hour, infection, fever, CHF, marked hyperglycemia, and marked hypertension may elevate urinary albumin excretion over baseline values. Urine specimen (specimen) 01/06/2012 9:03 PM EST 01/06/2012 10:28 PM EST Narrative Resulting Agency Comment Spec In Lab Inna Tovar MD URINE ORDERABLES Performing Organization Address City/[facility]/ZIP Co de Phone Number CERNER MILLENNIUM * POCT GLUCOSE LAB USE ONLY (01/06/2012 7:46 PM EST) Glucose, POC 127 60 - 199 mg/dL [facility] Comment: Supplemental ranges: <110 mg/dL before meals <200 mg/dL all other times of the day Blood specimen (specimen) 01/06/2012 7:46 PM EST 01/06/2012 7:46 PM EST Andi Rene MD POINT OF CARE TEST O GILDA Performing Organization Address [facility] de Phone Number [facility] * POCT GLUCOSE LAB USE ONLY (01/06/2012 4:24 PM EST) Glucose, POC 131 60 - 199 mg/dL [facility] Comment: Supplemental ranges: <110 mg/dL before meals <200 mg/dL all other times of the day Blood specimen (specimen) 01/06/2012 4:24 PM EST 01/06/2012 4:24 PM EST Andi Rene MD POINT OF CARE TEST O GILDA Performing Organization Address [facility] de Phone Number [facility] * POCT GLUCOSE LAB USE ONLY (01/06/2012 12:06 PM EST) Glucose, POC 160 60 - 199 mg/dL [facility] Comment: Supplemental ranges: <110 mg/dL before meals <200 mg/dL all other times of the day Blood specimen (specimen) 01/06/2012 12:06 PM EST 01/06/2012 12:06 PM EST Andi Rene MD POINT OF CARE TEST O GILDA Performing Organization Address [facility] de Phone Number [facility] * Potassium (01/06/2012 9:59 AM EST) Potassium 4.0 3.5 - 5.0 mmol/L [facility] Comment: Please note: ??Patients with [...] Tovar MD CHEMISTRY ORDERABLES Performing Organization Address [facility] Phone Number [facility] * POCT GLUCOSE LAB USE ONLY (01/06/2012 6:53 AM EST) Glucose, POC 168 60 - 199 mg/dL [facility] [employer] Comment: Supplemental ranges: <110 mg/dL before meals <200 mg/dL all other times of the day Blood specimen (specimen) 01/06/2012 6:53 AM EST 01/06/2012 6:53 AM EST Andi Rene MD POINT OF CARE TEST O RDERAHERNANDEZ Performing Organization Address [facility] de Phone Number [facility] [employer] * POCT GLUCOSE LAB USE ONLY (01/06/2012 5:03 AM EST) Glucose, POC 147 60 - 199 mg/dL [facility] Comment: Supplemental ranges: <110 mg/dL before meals <200 mg/dL all other times of the day Blood specimen (specimen) 01/06/2012 5:03 AM EST 01/06/2012 5:03 AM EST Andi Rene MD POINT OF CARE TEST O RDERAHERNANDEZ Performing Organization Address [facility] de Phone Number [facility] * POCT GLUCOSE LAB USE ONLY (01/06/2012 3:16 AM EST) Glucose, POC 126 60 - 199 mg/dL [facility] BrandictedENNIUM Comment: Supplemental ranges: <110 mg/dL before meals <200 mg/dL all other times of the day Blood specimen (specimen) 01/06/2012 3:16 AM EST 01/06/2012 3:16 AM EST Andi Rene MD POINT OF CARE TEST O RDERAHERNANDEZ Performing Organization Address [facility] Co de Phone Number [facility] * POCT GLUCOSE LAB USE ONLY (01/06/2012 1:12 AM EST) Glucose, POC 135 60 - 199 mg/dL [facility] Comment: Supplemental ranges: <110 mg/dL before meals <200 mg/dL all other times of the day Blood specimen (specimen) 01/06/2012 1:12 AM EST 01/06/2012 1:12 AM EST Andi Rene MD POINT OF CARE TEST O GILDA Performing Organization Address [facility] Phone Number [facility] * POCT GLUCOSE LAB USE ONLY (01/05/2012 11:52 PM EST) Glucose, POC 133 60 - 199 mg/dL [facility] Comment: Supplemental ranges: <110 mg/dL before meals <200 mg/dL all other times of the day Blood specimen (specimen) 01/05/2012 11:52 PM EST 01/05/2012 11:52 PM EST Andi Rene MD POINT OF CARE TEST O RDTYESHA Performing Organization Address [facility] de Phone Number [facility]HON[facility] * POCT GLUCOSE LAB USE ONLY (01/05/2012 10:54 PM EST) Glucose, POC 130 60 - 199 mg/dL [facility] Comment: Supplemental ranges: <110 mg/dL before meals <200 mg/dL all other times of the day Blood specimen (specimen) 01/05/2012 10:54 PM EST 01/05/2012 10:54 PM EST Andi Rene MD POINT OF CARE TEST O RDERAHERNANDEZ Performing Organization Address [facility] Co de Phone Number [facility]ON[facility] * POCT GLUCOSE LAB USE ONLY (01/05/2012 9:51 PM EST) Glucose, POC 132 60 - 199 mg/dL [facility] Comment: Supplemental ranges: <110 mg/dL before meals <200 mg/dL all other times of the day Blood specimen (specimen) 01/05/2012 9:51 PM EST 01/05/2012 9:51 PM EST Andi Rene MD POINT OF CARE TEST O GILDA Performing Organization Address [facility] Co de Phone Number [facility] * POCT GLUCOSE LAB USE ONLY (01/05/2012 8:50 PM EST) Glucose, POC 126 60 - 199 mg/dL [facility] Comment: Supplemental ranges: <110 mg/dL before meals <200 mg/dL all other times of the day Blood specimen (specimen) 01/05/2012 8:50 PM EST 01/05/2012 8:50 PM EST Andi Rene MD POINT OF CARE TEST O GILDA Performing Organization Address [facility] de Phone Number [facility] * POCT GLUCOSE LAB USE ONLY (01/05/2012 8:07 PM EST) Glucose, POC 126 60 - 199 mg/dL [facility] Comment: Supplemental ranges: <110 mg/dL before meals <200 mg/dL all other times of the day Blood specimen (specimen) 01/05/2012 8:07 PM EST 01/05/2012 8:07 PM EST Andi Rene MD POINT OF CARE TEST O GILDA Performing Organization Address [facility] de Phone Number [facility] * POCT GLUCOSE LAB USE ONLY (01/05/2012 6:57 PM EST) Glucose, POC 137 60 - 199 mg/dL [facility] Comment: Supplemental ranges: <110 mg/dL before meals <200 mg/dL all other times of the day Blood specimen (specimen) 01/05/2012 6:57 PM EST 01/05/2012 6:57 PM EST Andi Rene MD POINT OF CARE TEST O GILDA Performing Organization Address [facility] de Phone Number [facility] * POCT GLUCOSE LAB USE ONLY (01/05/2012 4:59 PM EST) Glucose, POC 147 60 - 199 mg/dL [facility] Comment: Supplemental ranges: <110 mg/dL before meals <200 mg/dL all other times of the day Blood specimen (specimen) 01/05/2012 4:59 PM EST 01/05/2012 4:59 PM EST Andi Rene MD POINT OF CARE TEST O GILDA Performing Organization Address [facility] de Phone Number [facility] * POCT GLUCOSE LAB USE ONLY (01/05/2012 1:05 PM EST) Glucose, POC 154 60 - 199 mg/dL [facility] MILLENNIUM Comment: Supplemental ranges: <110 mg/dL before meals <200 mg/dL all other times of the day Blood specimen (specimen) 01/05/2012 1:05 PM EST 01/05/2012 1:05 PM EST Andi Rene MD POINT OF CARE TEST O GILDA Performing Organization Address [facility] de Phone Number [facility] BrandictedHON[facility] * POCT GLUCOSE LAB USE ONLY (01/05/2012 12:42 PM EST) Glucose, POC 148 60 - 199 mg/dL [facility] MILLENNIUM Comment: Supplemental ranges: <110 mg/dL before meals <200 mg/dL all other times of the day Blood specimen (specimen) 01/05/2012 12:42 PM EST 01/05/2012 12:42 PM EST Andi Rene MD POINT OF CARE TEST O RDERAHERNANDEZ Performing Organization Address [facility]/ZIP Co de Phone Number [facility] * POCT GLUCOSE LAB USE ONLY (01/05/2012 9:54 AM EST) Glucose, POC 145 60 - 199 mg/dL [facility] Comment: Supplemental ranges: <110 mg/dL before meals <200 mg/dL all other times of the day Blood specimen (specimen) 01/05/2012 9:54 AM EST 01/05/2012 9:54 AM EST Andi Rene MD POINT OF CARE TEST O RDTYESHA Performing Organization Address [facility] de Phone Number [facility] * POCT GLUCOSE LAB USE ONLY (01/05/2012 8:00 AM EST) Glucose, POC 168 60 - 199 mg/dL [facility] Comment: Supplemental ranges: <110 mg/dL before meals <200 mg/dL all other times of the day Blood specimen (specimen) 01/05/2012 8:00 AM EST 01/05/2012 8:00 AM EST Andi Rene MD POINT OF CARE TEST O RDTYESHA Performing Organization Address [facility] de Phone Number [facility] * POCT GLUCOSE LAB USE ONLY (01/05/2012 5:58 AM EST) Glucose, POC 164 60 - 199 mg/dL [facility] Comment: Supplemental ranges: <110 mg/dL before meals <200 mg/dL all other times of the day Blood specimen (specimen) 01/05/2012 5:58 AM EST 01/05/2012 5:58 AM EST Andi Rene MD POINT OF CARE TEST O RDERAHERNANDEZ Performing Organization Address [facility] Co de Phone Number [facility] * POCT GLUCOSE LAB USE ONLY (01/05/2012 4:12 AM EST) Glucose, POC 148 60 - 199 mg/dL CERNER MILLENNIUM Comment: Supplemental ranges: <110 mg/dL before meals <200 mg/dL all other times of the day Blood specimen (specimen) 01/05/2012 4:12 AM EST 01/05/2012 4:12 AM EST Andi Rene MD POINT OF CARE TEST O RDTYESHA Performing Organization Address [facility] Co de Phone Number CERBRIAN CAENNIUM * POCT GLUCOSE LAB USE ONLY (01/05/2012 2:05 AM EST) Glucose, POC 148 60 - 199 mg/dL CERBANNER ROBYENNIUM Comment: Supplemental ranges: <110 mg/dL before meals <200 mg/dL all other times of the day Blood specimen (specimen) 01/05/2012 2:05 AM EST 01/05/2012 2:05 AM EST Andi Rene MD POINT OF CARE TEST O GILDA Performing Organization Address [facility] de Phone Number CERBRIAN CAENNIUM * (ABNORMAL) DIFFERENTIAL, AUTOMATED (01/05/2012 2:00 AM EST) Pathologist [facility] [place] Neutrophil % 79.0(H) 34.0 - 71.0 % [...] damage. Diagnosis of acute, evolving or recent MS requires a typical rise and gradual fall [...] consensus document of the Joint Society of Cardiology/[place] [employer] Committee for the redefinition of myocardial infarction. Journal of the [place] [employer] 2000; 36: 959-969] Creatine Kinase 436(H) 0 - 200 unit/L CERNER MILLENNIUM Blood specimen (specimen) 01/05/2012 2:00 AM EST 01/05/2012 2:11 AM EST Narrative Resulting Agency Comment Spec In Lab Sarthak Pollard MD CHEMISTRY ORDERABLES Performing Organization Address [facility] de Phone Number [facility] * Potassium (01/05/2012 2:00 AM EST) Potassium 4.4 3.5 - 5.0 mmol/L [facility] Comment: Please note: ??Patients with [...] Pollard MD CHEMISTRY ORDERABLES Performing Organization Address [facility] de Phone Number [facility] * (ABNORMAL) Glucose, fasting (01/05/2012 2:00 AM EST) Glucose Fasting 148(H) 65 - 99 mg/dL [facility] Comment: ?Fasting* Glucose Interpretive Criteria [...] of Diabetes Mellitus, Position Statement from the [place] [employer]. ??Diabetes Care, Volume 33, Supplement 1, Nov 2009 Blood specimen (specimen) 01/05/2012 2:00 AM EST 01/05/2012 2:11 AM EST Narrative Resulting Agency Comment Spec In Lab Sarthak Pollard MD CHEMISTRY ORDERABLES Performing Organization Address [facility] Co de Phone Number ARIAN NELSON * Creatinine, serum (01/05/2012 2:00 AM EST) Creatinine 0.86 0.80 - 1.50 mg/dL [facility] Est Glomerular Filtration Rate >60 >=60 [facility] Comment: The National Kidney Disease Education Program [...] Pollard MD CHEMISTRY ORDERABLES Performing Organization Address City/[facility]/ZIP Co de Phone Number ARIAN NELSON * BUN (01/05/2012 2:00 AM EST) Blood Urea Nitrogen 10 10 - 20 mg/dL CERNER MILLENNIUM Blood specimen (specimen) 01/05/2012 2:00 AM EST 01/05/2012 2:11 AM EST Narrative Resulting Agency Comment Spec In Lab Sarthak Pollard MD CHEMISTRY ORDERABLES Performing Organization Address [facility]/ZIP Co de Phone Number ARIAN CAENNIUM * (ABNORMAL) CBC (with Diff) (01/05/2012 [...] HEMATOLOGY ORDERABLE S Performing Organization Address City/[facility]/ZIP Co de Phone Number ARIAN CERDAIUM [...] CARE TEST O RDERABLES Performing Organization Address [facility] de Phone Number [facility] * POCT GLUCOSE LAB USE ONLY (01/04/2012 9:00 PM EST) Glucose, POC 143 60 - 199 mg/dL [facility] Comment: Supplemental ranges: <110 mg/dL before meals <200 mg/dL all other times of the day Blood specimen (specimen) 01/04/2012 9:00 PM EST 01/04/2012 9:00 PM EST Andi Rene MD POINT OF CARE TEST O RDERABLES Performing Organization Address [facility] Phone Number [facility] * GLUCOSE, RANDOM (01/04/2012 9:00 PM EST) Glucose 128 60 - 199 mg/dL [facility] Comment:Diabetes: >=200 mg/d L plus symptoms Blood specimen (specimen) 01/04/2012 9:00 PM EST 01/04/2012 9:08 PM EST Narrative Resulting Agency Comment Spec In Lab Sarthak Pollard MD CHEMISTRY ORDERABLES Performing Organization Address [facility] Phone Number [facility] ROBYYARYI[facility] * (ABNORMAL) Hemoglobin (01/04/2012 9:00 PM EST) Hemoglobin 13.6(L) 13.7 - 17.5 gm/dL [facility] ROBYYARYI[facility] Blood specimen (specimen) 01/04/2012 9:00 PM EST 01/04/2012 9:08 PM EST Narrative Resulting Agency Comment Spec In Lab Sarthak Pollard MD HEMATOLOGY ORDERABLE S Performing Organization Address [facility] Phone Number [facility] MILLENNIUM * Potassium (01/04/2012 9:00 PM EST) Potassium [...] Comment: Total Hemoglobin (in gm/dL) ?Based on [facility] Hematology ranges: ?Age ?Reference Range Less than [...] Comment: Total Hemoglobin (in gm/dL) ?Based on [facility] Hematology ranges: ?Age ?Reference Range Less than [...] Comment: Total Hemoglobin (in gm/dL) ?Based on [facility] Hematology ranges: ?Age ?Reference Range Less than [...] POINT OF CARE TEST O RDERABLES CERBRIAN CERDAIUM * EKG 12 Lead (01/04/2012 4:26 PM EST) Ventricular rate 72 BPM MUSE SYSTEM Atrial Rate 72 BPM MUSE SYSTEM P-R Interval 174 ms MUSE SYSTEM QRS Duration 96 ms MUSE SYSTEM Q-T Interval 416 ms MUSE SYSTEM QTC Calculated (Bezet) 455 ms MUSE SYSTEM Calculated P [place] 48 degrees MUSE SYSTEM Calculated R [place] 23 degrees MUSE SYSTEM Calculated T [place] 71 degrees MUSE SYSTEM INTERPRETATION Normal sinus rhythm Normal ECG When compared with ECG of 30-DEC-2011 17:24, Vent. rate has decreased BY ??35 BPM Minimal criteria for Inferior infarct are no longer Present Nonspecific T wave abnormality, improved in Anterolateral leads Confirmed by fellow MD Wilson Deven ([id number]) on 01/05/2012 10:22:57 AM Confirmed by MD BENITES BRUCE ([id number]) on 01/05/2012 1:30:02 PM MUSE SYSTEM 01/04/2012 [...] GAS 2 ARTERIAL (01/04/2012 3:28 PM EST) [facility] pH, Arterial 7.32(L) CERNER MILLENNIUM PCO2, Arterial 51(Critica l) mmHg CERNER MILLENNIUM Comment: Noted by gyroscopic instrument mechanic. MTF PO2, Arterial 145(H) mmHg CERNER MILLENNIUM Bicarbonate, Arterial 25.5 mmol/L CERNER MILLENNIUM Base Excess, Arterial -0.7 mmol/L CERNER MILLENNIUM Hgb Blood Gas 11.1(L) gm/dL CERNER MILLENNIUM Comment: Total Hemoglobin (in gm/dL) ?Based on [facility] Hematology ranges: ?Age ?Reference Range Less than [...] CARE TEST O RDERABLES Performing Organization Address [facility] de Phone Number [facility] * THROMBIN TIME (01/04/2012 3:28 PM EST) Thrombin Time 17 15 - 20 sec [facility] Blood specimen (specimen) 01/04/2012 3:28 PM EST 01/04/2012 3:28 PM EST Narrative Resulting Agency Comment Spec In Lab Sarthak Pollard MD HEMATOLOGY ORDERABLE S Performing Organization Address [facility] de Phone Number [facility] * FIBRINOGEN (01/04/2012 3:28 PM EST) Fibrinogen 364 200 - 470 mg/dL [facility] Comment:Called by: [facility], Read back by: AKANKSHA SAMPSON, Date/Time:01/04/12 15:45. Blood specimen (specimen) 01/04/2012 3:28 PM EST 01/04/2012 3:28 PM EST Narrative Resulting Agency Comment Spec In Lab Sarthak Pollard MD HEMATOLOGY ORDERABLE S Performing Organization Address [facility] de Phone Number ARIAN CERDAIUM * APTT (01/04/2012 3:28 PM EST) Partial Thromboplastin Time 30 25 - 35 sec CERNER MILLENNIUM Comment: Recommended therapeutic PTT range for full dose unfractionated heparin is 80-114 seconds. Blood specimen (specimen) 01/04/2012 3:28 PM EST 01/04/2012 3:28 PM EST Narrative Resulting Agency Comment Spec In Lab Sarthak Pollard MD HEMATOLOGY ORDERABLE S Performing Organization Address [facility] Phone Number ARIAN CERDAIUM * (ABNORMAL) PROTHROMBIN TIME (01/04/2012 3:28 PM EST) Prothrombin Time 17.8(H) 11.9 - 14.7 sec CERBRIAN MILLENNIUM Comment: [facility] Transfusion Committee Guidelines: INR less than 2.0, PTT less than OR equal to 43.5 seconds, or Fibrinogen greater than or equal to 100 mg/dl indicate adequate procoagulant activity for hemostasis in patients without underlying bleeding disorders. International Normalization Ratio 1.4(H) 0.9 - 1.1 CERBRIAN CAENNIUM Blood specimen (specimen) 01/04/2012 3:28 PM EST 01/04/2012 3:28 PM EST Narrative Resulting Agency Comment Spec In Lab Sarthak Pollard MD HEMATOLOGY ORDERABLE S Performing Organization Address [facility] de Phone Number ARIAN CERDAIUM * (ABNORMAL) CBC (WITH DIFF) [...] l) mmHg CERNER MILLENNIUM Comment: Noted by gyroscopic instrument mechanic. MTF PO2, Arterial 296(H) mmHg CERNER MILLENNIUM Bicarbonate, Arterial 26.3(H) mmol/L CERNER MILLENNIUM Base Excess, Arterial 0.1 mmol/L CERNER MILLENNIUM Hgb Blood Gas 10.2(L) gm/dL CERNER MILLENNIUM Comment: Total Hemoglobin (in gm/dL) ?Based on [facility] Hematology ranges: ?Age ?Reference Range Less than [...] Comment: Total Hemoglobin (in gm/dL) ?Based on [facility] Hematology ranges: ?Age ?Reference Range Less than [...] POINT OF CARE TEST O RDERABLES ARIAN CAENNIUM * Prepare Coag Factors (Non-Hemophilia) (01/04/2012 12:05 PM EST) Dispensed? Yes CERNER ROBYENNIUM Blood specimen (specimen) 01/04/2012 12:05 PM EST 01/04/2012 12:01 PM EST Narrative Resulting Agency Comment Spec In Lab Inna Tovar MD BLOOD BANK PRODUCT O RDERABLES ARIAN CERDAIUM * Prepare RBC (01/04/2012 12:05 PM EST) Dispensed? Yes CERBRIAN CAENNIUM Blood specimen (specimen) 01/04/2012 12:05 PM EST 01/04/2012 12:01 PM EST Narrative Resulting Agency Comment Spec In Lab Inna Tovar MD BLOOD BANK PRODUCT O RDERABLES Performing Organization Address City/[facility] Co de Phone Number ARIAN [...] 0.0 - 0.2 x10(3)/mc L CERNER MILLENNIUM [place] Absolute Manual 0.3(H) 0.0 - 0.0 x10(3)/mc [...] of Diabetes Mellitus, Position Statement from the [place] [employer]. ??Diabetes Care, Volume 33, Supplement [...] Narrative Resulting Agency Comment Spec In Lab Andiemely Rene MD CHEMISTRY ORDERABLES CERBANNER [facility] * (ABNORMAL) CBC (with Diff) (01/04/2012 4:40 [...] MD HEMATOLOGY ORDERABLE S Performing Organization Address [facility] Co de Phone Number CERNER MILLENNIUM * (ABNORMAL) APTT (01/04/2012 4:40 AM EST) Partial Thromboplastin Time 103(H) 25 - 35 sec CERNER MILLENNIUM Comment: Recommended therapeutic PTT range for full dose unfractionated heparin is 80-114 seconds. Blood specimen (specimen) 01/04/2012 4:40 AM EST 01/04/2012 4:52 AM EST Narrative Resulting Agency Comment Spec In Lab Sarthak Pollard MD HEMATOLOGY ORDERABLE S Performing Organization Address City/[facility]/ZIP Co de Phone Number CERNER MILLENNIUM [...] HEMATOLOGY ORDERABLE S Performing Organization Address City/[facility]/ZIP Co de Phone Number CERNER MILLENNIUM [...] HEMATOLOGY ORDERABLE S Performing Organization Address City/[facility] Co de Phone Number CERNER [...] MD HEMATOLOGY ORDERABLE S Performing Organization Address [facility] Co de Phone Number ARIAN CERDAIUM * ANTIBODY SCREEN (01/03/2012 6:15 AM EST) Ab Screen Interp Negative ARIAN CERDAIUM Expires at [phone] on: [id number] ARIAN CERDAIUM Blood specimen (specimen) 01/03/2012 6:15 AM EST 01/03/2012 6:35 AM EST Narrative Resulting Agency Comment Spec In Lab Sarthak Pollard MD BLOOD BANK LAB ORDER RANDELL Performing Organization Address [facility] de Phone Number ARIAN NELSON * ABO/RH TYPING (01/03/2012 6:15 AM EST) ABORH Type A Pos CERBRIAN CERDAIUM Blood specimen (specimen) 01/03/2012 6:15 AM EST 01/03/2012 6:35 AM EST Narrative Resulting Agency Comment Spec In Lab Sarthak Pollard MD BLOOD BANK LAB ORDER RANDELL Performing Organization Address City/[facility] Co de Phone Number ARIAN CERDAIUM * (ABNORMAL) APTT (01/03/2012 6:15 AM EST) Partial Thromboplastin Time 96(H) 25 - 35 sec ARIAN CERDAIUM Comment: Recommended therapeutic PTT range for full [...] of Diabetes Mellitus, Position Statement from the [place] [employer] Association. ??Diabetes Care, Volume 33, Supplement [...] In Lab Andi Rene MD CHEMISTRY ORDERABLES JILLIANBRIAN CAYARYIUM * (ABNORMAL) CBC (with Diff) (01/03/2012 6:15 [...] MD HEMATOLOGY ORDERABLE S Performing Organization Address [facility]/ZIP Co de Phone Number [facility] ROBYENNIUM * (ABNORMAL) APTT (01/02/2012 11:21 PM EST) Partial Thromboplastin Time 69(H) 25 - [address] [facility] MILLENNIUM Comment: Recommended therapeutic PTT range for full dose unfractionated heparin is 80-114 seconds. Blood specimen (specimen) 01/02/2012 11:21 PM EST 01/02/2012 11:24 PM EST Narrative Resulting Agency Comment Spec In Lab Sarthak Pollard MD HEMATOLOGY ORDERABLE S Performing Organization Address City/[facility]/ZIP Co de Phone Number CERBANNER ROBYENNIUM * (ABNORMAL) APTT (01/02/2012 5:32 PM EST) Partial Thromboplastin Time 53(H) 25 - 35 sec CERNER MILLENNIUM Comment: Recommended therapeutic PTT range for full dose unfractionated heparin is 80-114 seconds. Blood specimen (specimen) 01/02/2012 5:32 PM EST 01/02/2012 5:38 PM EST Narrative Resulting Agency Comment Spec In Lab Sarthak Pollard MD HEMATOLOGY ORDERABLE S ARIAN CAENNIUM * (ABNORMAL) APTT (01/02/2012 11:56 AM EST) Partial Thromboplastin Time 46(H) 25 - 35 sec CERNER MILLENNIUM Comment: Recommended therapeutic PTT range for full dose unfractionated heparin is 80-114 seconds. Blood specimen (specimen) 01/02/2012 11:56 AM EST 01/02/2012 12:05 PM EST Narrative Resulting Agency Comment Spec In Lab Sarthak Pollard MD HEMATOLOGY ORDERABLE S CERBRIAN CAENNIUM * (ABNORMAL) DIFFERENTIAL, AUTOMATED (01/02/2012 [...] Absolute 0.10(H) 0.00 - 0.05 x10(3)/mc L [facility] Blood specimen (specimen) 01/02/2012 6:02 AM EST 01/02/2012 6:29 AM EST Remigio Ceron MD HEMATOLOGY ORDERABLE S Performing Organization Address [facility] de Phone Number [facility] * (ABNORMAL) APTT (01/02/2012 6:02 AM EST) Partial Thromboplastin Time 42(H) 25 - 35 sec [facility] Comment: Recommended therapeutic PTT range for full dose unfractionated heparin is 80-114 seconds. Blood specimen (specimen) 01/02/2012 6:02 AM EST 01/02/2012 6:29 AM EST Narrative Resulting Agency Comment Spec In Lab Sarthak Pollard MD HEMATOLOGY ORDERABLE S Performing Organization Address [facility] Phone Number [facility] * (ABNORMAL) BMP w/fasting Glucose (01/02/2012 6:02 AM EST) Glucose Fasting 113(H) 65 - 99 mg/dL [facility] Comment: ?Fasting* Glucose Interpretive Criteria [...] of Diabetes Mellitus, Position Statement from the [place] Diabetes Association. ??Diabetes Care, Volume 33, Supplement 1, Nov 2009 Blood Urea Nitrogen 10 10 - 20 mg/dL [facility] Creatinine 0.68(L) 0.80 - 1.50 mg/dL CERNER [...] S ARIAN CERDAIUM * (ABNORMAL) APTT (01/02/2012 12:23 AM EST) [...] (with Diff) (01/01/2012 6:37 PM EST) Pathologist [facility] [place] White Blood Cell 11.0(H) 4.0 - 10.0 [...] MD HEMATOLOGY ORDERABLE S Performing Organization Address [facility] de Phone Number [facility] * APTT (01/01/2012 6:37 PM EST) [facility] Partial Thromboplastin Time 32 25 - 35 sec CERNER MILLENNIUM Comment: Recommended therapeutic PTT range for full dose unfractionated heparin is 80-114 seconds. Blood specimen (specimen) 01/01/2012 6:37 PM EST 01/01/2012 6:43 PM EST Narrative Resulting Agency Comment Spec In Lab Sarthak Pollard MD HEMATOLOGY ORDERABLE S Performing Organization Address [facility] Co de Phone Number [facility] * POCT GLUCOSE LAB USE ONLY (01/01/2012 12:02 PM EST) Glucose, POC 99 60 - 199 mg/dL [facility] Comment: Supplemental ranges: <110 mg/dL before meals <200 mg/dL all other times of the day Blood specimen (specimen) 01/01/2012 12:02 PM EST 01/01/2012 12:02 PM EST Andi Rene MD POINT OF CARE TEST O RDERABLES Performing Organization Address [facility] Co de Phone Number [facility] * (ABNORMAL) APTT (01/01/2012 11:59 AM EST) Pathologist [facility] [place] Partial Thromboplastin Time 108(H) 25 - 35 sec [facility] Comment: Recommended therapeutic PTT range for full dose unfractionated heparin is 80-114 seconds. Blood specimen (specimen) 01/01/2012 11:59 AM EST 01/01/2012 12:06 PM EST Narrative Resulting Agency Comment Spec In Lab Andi Rene MD HEMATOLOGY ORDERABLE S Performing Organization Address [facility] Phone Number [facility] * XR chest routine PA & lateral [...] CERNER MILLENNIUM * (ABNORMAL) BMP w/fasting Glucose (01/01/2012 [...] of Diabetes Mellitus, Position Statement from the [place] [employer]. ??Diabetes Care, Volume 33, Supplement [...] Lab Andi Rene MD CHEMISTRY ORDERABLES ARIAN CAYARYIUM * (ABNORMAL) CBC (with Diff) (01/01/2012 5:19 AM EST) White Blood Cell 15.3(H) 4.0 - 10.0 x10(3)/mc L CERNER MILLENNIUM Red Blood Cell 4.09(L) 4.63 - 6.08 x10(6)/mc L CERNER MILLENNIUM Hemoglobin 12.4(L) 13.7 - 17.5 gm/dL ARIAN MILLENNIUM Hematocrit 36.0(L) 40.0 - 51.0 % [...] MD HEMATOLOGY ORDERABLE S Performing Organization Address [facility]/ZIP Co de Phone Number CERNER ROBYENNIUM * (ABNORMAL) APTT (12/31/2011 11:01 PM EST) Partial Thromboplastin Time 72(H) 25 - 35 sec CERNER MILLENNIUM Comment: Recommended therapeutic PTT range for full dose unfractionated heparin is 80-114 seconds. Blood specimen (specimen) 12/31/2011 11:01 PM EST 12/31/2011 11:18 PM EST Narrative Resulting Agency Comment Spec In Lab Andi Rene MD HEMATOLOGY ORDERABLE S Performing Organization Address [facility]/ZIP Co de Phone Number ARIAN CERDAIUM * Upper Respiratory Culture Throat (12/31/2011 9:55 PM EST) Upper Respiratory Culture ? Patient Name: ZACK HEART, GEOVANNA Llanos ? Ordered By: ANDI RENE ? MR#: [id number] ?LOC: ??[facility] ? /Sex: ??1975 (36 years), ? Male ? PROCEDURE: Upper Respiratory Culture ?SOURCE: Throat ? COLLECTED: 12/31/2011 21:55 ? STARTED: 12/31/2011 22:16 ? FINAL REPORT ? Final Report ? Verified:2011 08:12 ? Beta Hemolytic Streptococci, Group A isolated ? PRELIMINARY REPORT ? Preliminary Report ? Verified:2011 09:46 ? Beta Hemolytic Streptococci, Group A isolated ? CERNER MILLENNIUM Specimen from throat (specimen) 12/31/2011 9:55 PM EST 12/31/2011 10:16 PM EST Narrative Resulting Agency Comment Spec In Lab Andi Rene MD MICROBIOLOGY - GENER AL ORDERABLES Performing Organization Address [facility] Co de Phone Number [facility] ROBYBiotixIUM * (ABNORMAL) APTT (12/31/2011 4:34 PM EST) Partial Thromboplastin Time 66(H) 25 - 35 sec CERNER MILLENNIUM Comment: Recommended therapeutic PTT range for full dose unfractionated heparin is 80-114 seconds. Blood specimen (specimen) 12/31/2011 4:34 PM EST 12/31/2011 4:39 PM EST Narrative Resulting Agency Comment Spec In Lab Andi Rene MD HEMATOLOGY ORDERABLE S Performing Organization Address [facility] Co de Phone Number [facility] MILLENNIUM * Duplex Study for DVT, Bilat legs (12/31/2011 11:07 AM EST) VB Text Report Department: Vascular Surgery Lab Patient: [id number] (ZACKGEOVANNA) CPT Code: 79920 ICD-9: 780.6 Referring Physician: ANDI RENE Indication: [...] AM EST Andi Rene MD VASCULAR ORDERABLES Performing Organization Address City/State/[facility] Co de Phone Number [email or web address] * SMEAR REVIEW REPORT (12/31/2011 10:39 AM EST) Smear Review Report ? [facility] ? Provider: ?? ANDI RENE ?Pt. Name: ?? ZACK JR GEOVANNA Viet ? Acc #: ?[id number] ? Pt. ? Col Date: ?? 12/31/2011 [...] MILLENNIUM 12/31/2011 10:3 9 AM EST Andi S Anju DE HEMATOLOGY ORDERABLE S [...] Spec In Lab Andi S Rene MD HEMATOLOGY ORDERABLE S CERNER MILLENNIUM [...] CERBRIAN MILLENNIUM * (ABNORMAL) CBC (WITH DIFF) (12/31/2011 [...] MD HEMATOLOGY ORDERABLE S Performing Organization Address [facility] de Phone Number [facility] * Lactate Dehydrogenase (12/31/2011 9:44 AM EST) Lactate Dehydrogenase 123 110 - 220 unit/L CERNER MILLENNIUM Blood specimen (specimen) 12/31/2011 9:44 AM EST 12/31/2011 10:12 AM EST Narrative Resulting Agency Comment Spec In Lab nAdi Rene MD CHEMISTRY ORDERABLES Performing Organization Address City/[facility] Co de Phone Number [facility] * Peripheral Smear Review (12/31/2011 9:44 AM EST) Peripheral Smear Review See Comment CERNER MILLENNIUM Comment: When completed by the Pathologist, report [id number] will display under Hematology Reports. Blood specimen (specimen) 12/31/2011 9:44 AM EST 12/31/2011 10:12 AM EST Narrative Resulting Agency Comment Spec In Lab Andi Rene MD HEMATOLOGY ORDERABLE S CERNER MILLENNIUM * (ABNORMAL) APTT (12/31/2011 9:44 AM [...] Gran % 0.40 0.00 - 0.66 % [facility] Comment: Immature granulocytes(IG's)percentage and absolute count will include metamyelocytes, myelocytes, and promyelocytes. Blood smears from CBCs yielding IG's will be scanned manually for concordance. If this scan disagrees with the automated IG or if promyelocytes are noted, a manual differential will be performed. Immature Gran Absolute 0.08(H) 0.00 - 0.05 x10(3)/mc L [facility] Blood specimen (specimen) 12/31/2011 3:38 AM EST 12/31/2011 3:50 AM EST Remigio Ceron MD HEMATOLOGY ORDERABLE S Performing Organization Address [facility] Co de Phone Number [facility] * (ABNORMAL) APTT (12/31/2011 3:38 AM EST) Partial Thromboplastin Time 47(H) 25 - 35 sec [facility] Comment: Recommended therapeutic PTT range for full dose unfractionated heparin is 80-114 seconds. Blood specimen (specimen) 12/31/2011 3:38 AM EST 12/31/2011 3:50 AM EST Narrative Resulting Agency Comment Spec In Lab Andi Rene MD HEMATOLOGY ORDERABLE S Performing Organization Address [facility] de Phone Number [facility] * (ABNORMAL) BMP w/fasting Glucose (12/31/2011 3:38 AM EST) Glucose Fasting 114(H) 65 - 99 mg/dL [facility] Comment: ?Fasting* Glucose Interpretive Criteria [...] of Diabetes Mellitus, Position Statement from the [place] Diabetes [employer]. ??Diabetes Care, Volume 33, Supplement [...] Thromboplastin Time 37(H) 25 - [address] [facility] BrandictedHONORHEALTH SC[facility]SD[facility] OS[facility] MEDICAL CENTERSookasa Comment: Recommended therapeutic PTT range for full dose unfractionated heparin is 80-114 seconds. Blood specimen (specimen) 12/30/2011 9:02 PM EST 12/30/2011 9:10 PM EST Narrative Resulting Agency Comment Spec In Lab Andi Rene MD HEMATOLOGY ORDERABLE S Performing Organization Address [facility] de Phone Number [facility] * EKG 12 Lead (12/30/2011 5:24 PM EST) Ventricular rate 107 BPM MUSE SYSTEM Atrial Rate 107 BPM MUSE SYSTEM P-R Interval 160 ms MUSE SYSTEM QRS Duration 104 ms MUSE SYSTEM Q-T Interval 310 ms MUSE SYSTEM QTC Calculated (Bezet) 413 ms MUSE SYSTEM Calculated P [place] 24 degrees MUSE SYSTEM Calculated R [place] 25 degrees MUSE SYSTEM Calculated T [place] 54 degrees MUSE SYSTEM INTERPRETATION Sinus tachycardia Cannot rule out Inferior infarct , age undetermined Nonspecific T wave abnormality Abnormal ECG When compared with ECG of 29-DEC-2011 23:13, No significant change was found Confirmed by MD VAIBHAV, SARTHAK ([id number]) on 12/31/2011 10:51:02 AM MUSE SYSTEM 12/30/2011 5:24 PM EST 12/31/2011 10:51 AM EST Andi Rene MD ECG ORDERABLES Performing Organization Address [facility] de Phone Number MUSE SYSTEM * Blood culture (12/30/2011 5:04 PM EST) Blood Culture ? Patient Name: GEOVANNA DIXON JR ?Ordered By: ANDI RENE ? MR#: [id number] ?LOC: ??[facility] ? /Sex: ??1975 (36 years), ? Male ? PROCEDURE: Blood Culture ?SOURCE: Blood ? COLLECTED: 12/30/2011 17:04 ?FREE TEXT SOURCE: LAC ? STARTED: 12/30/2011 17:31 ? FINAL REPORT ? Final Report ? Verified:2011 15:07 ? No growth at 5 days. ? PRELIMINARY REPORT ? Preliminary Report ? Verified:2011 23:07 ? No growth at 4 days. ? ARIAN CAHONORHEALTH SCOTTSD[facility] OSBORN MEDICAL CENTERIUM Blood specimen (specimen) 12/30/2011 5:04 PM EST 12/30/2011 5:31 PM EST Narrative Resulting Agency Comment Spec In Lab Andi Rene MD MICROBIOLOGY - BLOOD ORDERABLES [facility] * Blood culture (12/30/2011 4:51 PM EST) Blood Culture ? Patient Name: ZACK REYNA, GEOVANNA Llanos ?Ordered By: ANDI RENE ? MR#: [id number] ?LOC: ??[facility] ? /Sex: ??1975 (36 years), [...] Abs 0.0 0.0 - 0.5 x10(3)/mc L CERBRIAN MILLENNIUM Basophil % 0.2 0.0 - 2.0 % CERBRIAN CAENNIUM Baso Absolute 0.0 0.0 - 0.2 x10(3)/mc L CERBRIAN CAENNIUM Immature Gran % 0.20 0.00 - 0.66 % CERBRIAN CAENNIUM Comment: Immature granulocytes(IG's)percentage and absolute count will [...] HEMATOLOGY ORDERABLE S Performing Organization Address City/[facility] de Phone Number ARIAN CERDAIUM * ANTIBODY SCREEN (12/30/2011 4:25 PM EST) Ab Screen Interp Negative ARIAN CERDAIUM Expires at [phone] on: [id number] ARIAN CERDAIUM Blood specimen (specimen) 12/30/2011 4:25 PM EST 12/30/2011 4:36 PM EST Narrative Resulting Agency Comment Spec In Lab Andi Rene MD BLOOD BANK LAB ORDER RANDELL Performing Organization Address City/[facility] de Phone Number ARIAN NELSON * ABO/RH TYPING (12/30/2011 4:25 PM EST) ABORH Type A Pos RAIAN CERDAIUM Blood specimen (specimen) 12/30/2011 4:25 PM EST 12/30/2011 4:36 PM EST Narrative Resulting Agency Comment Spec In Lab Andi Rene MD BLOOD BANK LAB ORDER RANDELL Performing Organization Address City/[facility] de Phone Number ARIAN CAENNIUM * Glucose, random (12/30/2011 4:25 PM EST) Glucose 126 60 - 199 mg/dL CERNER MILLENNIUM Comment:Diabetes: >=200 mg/d L plus symptoms Blood specimen (specimen) 12/30/2011 4:25 PM EST 12/30/2011 4:43 PM EST Narrative Resulting Agency Comment Spec In Lab Andi Rene MD CHEMISTRY ORDERABLES Performing Organization Address [facility] de Phone Number ARIAN CERDAIUM * [...] HEMATOLOGY ORDERABLE S Performing Organization Address City/[facility]/ZIP Co de Phone Number ARIAN CERDAIUM * APTT (12/30/2011 2:08 PM EST) [facility] Partial Thromboplastin Time 31 25 - [address] [facility] ROBYHONORHEALTH SCOTTSD[facility] OS[facility]ORN MEDICAL CENTERKEENA Comment: Recommended therapeutic PTT range for full dose unfractionated heparin is 80-114 seconds. Blood specimen (specimen) 12/30/2011 2:08 PM EST 12/30/2011 2:27 PM EST Narrative Resulting Agency Comment Spec In Lab Andi Rene MD HEMATOLOGY ORDERABLE S Performing Organization Address [facility] Co de Phone Number [facility] ROBYHONORHE[facility] SC[facility]ENTERKEENA * Cardiac Enzymes (12/30/2011 2:08 PM EST) [facility] Troponin-T 0.03 <=0.03 ng/mL [facility] Comment: 0.03 ng/mL: Represents the 99th percentile upper reference limit for normals. >0.03 ng/mL: Elevated cardiac troponin T level indicative of myocardial damage. Diagnosis of acute, evolving or recent MS requires a typical rise and gradual fall [...] consensus document of the Joint Society of Cardiology/[place] College [employer] Committee for the redefinition of myocardial infarction. Journal of the [place] College [employer]iology 2000; 36: 959-969] Creatine Kinase 72 0 - 200 unit/L [facility] ROBYHONORHE[facility] SC[facility] CENTERKEENA Blood specimen (specimen) 12/30/2011 2:08 PM EST 12/30/2011 2:27 PM EST Narrative Resulting Agency Comment Spec In Lab Remigio Ceron MD CHEMISTRY ORDERABLES Performing Organization Address [facility] Co de Phone Number [facility] * HIV (12/30/2011 10:18 AM EST) Pathologist [facility] [place] HIV 1/2 Ab Negative CERBRIAN NELSON Blood specimen (specimen) 12/30/2011 10:18 AM EST 12/30/2011 10:28 AM EST Narrative Resulting Agency Comment Spec In Lab Andi Rene MD CHEMISTRY ORDERABLES ARIAN NELSON * Echo Transthoracic (Complete) (12/30/2011 9:47 AM EST) EF 55 [facility] Anatomical Region Laterality Modality Other 12/30/2011 Narrative 12/30/2011 10:02 AM EST Procedure: ? Transthoracic Echocardiogram Patient: ? ZACK Llanos ?(Age): 1975(36) Med Rec#: ?[id number] ? Sex: ?M ? Site Loc: ?[facility] ? Ht / Wt: ??180(cm)/124(kg) Pt. Loc: ? Adult Floor ?BSA: ?2.41 Study Date: ?12/30/2011 ? Pt. Type: Inpatient Tape: ? Referring: Remigio Ceron Concierge Manager: Benjamin Lundberg Diagnosis: ??Chest pain (786.50) CPT Code(s): ??Spectral Doppler (64071), ??Color Doppler (75560), ??Echo Full (06287), Indication(s): ??Chest Pain Rhythm: HR ?BP ?106/60 [...] 12/30/2011 10:01:28 Images reviewed and interpretation verified [facility] Cardiac Ultrasound Laboratory Procedure Note Zak Coley MD - 12/30/2011 Procedure: Transthoracic Echocardiogram Patient: ZACK Llanos DOB(Age): 1975(36) Med Rec#: [id number] Sex: M Site Loc: [facility] Ht / Wt: 180(cm)/124(kg) Pt. Loc: Adult Floor BSA: 2.41 Study Date: 12/30/2011 Pt. Type: Inpatient Tape: Referring: Remigio Ceron Concierge Manager: Benjamin Lundberg Diagnosis: Chest pain (786.50) CPT Code(s): Spectral Doppler (72402), Color Doppler (37249), Echo Full (87087), Indication(s): Chest Pain Rhythm: HR BP 106/60 [...] 12/30/2011 10:01:28 Images reviewed and interpretation verified [facility] Cardiac Ultrasound Laboratory Remigio Ceron MD [...] Urine Dipstick Clear Clear CERNER MILLENNIUM Specific [employer] Urine Automated 1.019 1.002 - 1.030 CERNER MILLENNIUM Color, Urine Dipstick Yellow Yellow CERNER MILLENNIUM RBC, Urine Not Present 0 - 3 CERNER MILLENNIUM WBC, Urine 1 0 - 3 /HPF ARIAN ROBYPETR Transitional Epithelial Cells, Urine <1 <=1 /HPF ARIAN ROBYPETR Urine specimen (specimen) 12/30/2011 9:32 AM EST 12/30/2011 9:45 AM EST Narrative Resulting Agency Comment Spec In Lab Andi Rene MD URINE ORDERABLES ARIAN NELSON * Rapid Qual Drug Screen, Urine ([facility]) (12/30/2011 9:32 AM EST) U IVAN Screen See Note ARIAN NELSON Comment: Urine drug of abuse results: [...] testing device is being used in the [facility] Chemistry Laboratory. Please contact the chemistry laboratory at [phone] with questions. Urine specimen (specimen) 12/30/2011 9:32 AM EST 12/30/2011 9:45 AM EST Narrative Resulting Agency Comment Spec In Lab Andi Rene MD URINE ORDERABLES ARIAN NELSON * Urine culture Clean Catch Urine (12/30/2011 9:31 AM EST) Urine Culture ? Patient Name: ZACK REYNA, GEOVANNA Llanos ?Ordered By: ANDI RENE ? MR#: [id number] ?LOC: ??[facility] ? /Sex: ?? 4 (36 [...] Lab Remigio Ceron MD HEMATOLOGY ORDERABLE S [facility] * Hemoglobin A1c (12/30/2011 7:07 AM EST) Pathologist [facility] [place] Hemoglobin A1c 6.1 4.3 - 6.1 % CERNER MILLENNIUM Estimated Average Glucose 128 mg/dL [facility] Comment: eAG equivalents for HbA1c percentages: HbA1c(%) [...] into estimated average glucose values. ??Diabetes Care 2008:31(8):5404-0369. Blood specimen (specimen) 12/30/2011 7:07 AM EST 12/30/2011 7:18 AM EST Narrative Resulting Agency Comment Spec In Lab Remigio Ceron MD CHEMISTRY ORDERABLES Performing Organization Address [facility] de Phone Number [facility] BrandictedSCRIP[facility] * (ABNORMAL) APTT (12/30/2011 5:45 AM EST) Partial Thromboplastin Time 45(H) 25 - 35 sec [facility] Comment: Recommended therapeutic PTT range for full dose unfractionated heparin is 80-114 seconds. Blood specimen (specimen) 12/30/2011 5:45 AM EST 12/30/2011 6:10 AM EST Narrative Resulting Agency Comment Spec In Lab Andi Rene MD HEMATOLOGY ORDERABLE S Performing Organization Address [facility] de Phone Number [facility] * (ABNORMAL) Glucose, fasting (12/30/2011 5:45 AM EST) Glucose Fasting 108(H) 65 - 99 mg/dL [facility] Comment: ?Fasting* Glucose Interpretive Criteria [...] of Diabetes Mellitus, Position Statement from the [place] [employer]. ??Diabetes Care, Volume 33, Supplement 1, Nov 2009 Blood specimen (specimen) 12/30/2011 5:45 AM EST 12/30/2011 6:10 AM EST Narrative Resulting Agency Comment Spec In Lab Remigio Ceron MD CHEMISTRY ORDERABLES Performing Organization Address [facility] de Phone Number [facility] * (ABNORMAL) Triglyceride (12/30/2011 5:45 AM EST) Triglyceride 245(H) <=149 mg/dL [facility] Comment: Reference Range: Normal triglycerides: ??<150 mg/dL Borderline high: ??150-199 mg/dL High: ??200-499 mg/dL Very high: ??>vj=598 mg/dL ELISEO 2001; 285(19):5361-8236 Blood specimen (specimen) 12/30/2011 5:45 AM EST 12/30/2011 6:10 AM EST Narrative Resulting Agency Comment Spec In Lab Remigio Ceron MD CHEMISTRY ORDERABLES Performing Organization Address [facility] de Phone Number [facility] * (ABNORMAL) HDL/Cholesterol Profile (12/30/2011 5:45 AM EST) Cholesterol, Total 170 <=199 mg/dL [facility] Comment: Recommendations of the NCEP Adult Treatment Panel for the following risk cutoff thresholds for the [place] population: Desirable: <200 mg/dL Borderline High: 200-239 mg/dL High: > or = 240 mg/dL HDL Cholesterol 36(L) >=40 mg/dL [facility] Comment: Reference range: ??Low HDL: ?? < 40 mg/dL ??Normal: ?40-60 mg/dL ??Desirable: > 60 mg/dL ELISEO 2001; 285(19):9551-2042 Cholesterol/HDL Ratio 4.7 ratio [facility] Comment: A Cholesterol to HDL ratio below 4:1 is desirable. ??Studies suggest that increased CAD risk occurs at ratios above 5 for females and above 6 for men. ? [place] [employer] ??(http://www.americanheart.org) ? Jazmine Int Med, 1994; 121:641 ? AM J Med, 1998; 105(1A):48S Blood specimen (specimen) 12/30/2011 5:45 AM EST 12/30/2011 6:10 AM EST Narrative Resulting Agency Comment Spec In Lab Remigio Ceron MD CHEMISTRY ORDERABLES [facility] * (ABNORMAL) LDL Cholesterol, Direct (12/30/2011 5:45 AM EST) LDL Cholesterol, Direct 110(H) <=99 mg/dL [facility] Comment: The National Cholesterol Education Program (NCEP) has set the following guidelines for LDL Cholesterol: Reference range: ?? Optimal: ?<100 mg/dL ?? Near Optimal/Above Optimal: ?? 100-129 mg/dL ?? Borderline high: ?130-159 mg/dL ?? High: ? 160-189 mg/dL ?? Very high: ?>fn=264 mg/dL ELISEO 2001: 285(19):3780-1966 Blood specimen (specimen) 12/30/2011 5:45 AM EST 12/30/2011 6:10 AM EST Narrative Resulting Agency Comment Spec In Lab Remigio Ceron MD CHEMISTRY ORDERABLES Performing Organization Address [facility] de Phone Number ARIAN NELSON * (ABNORMAL) Cardiac Enzymes (12/30/2011 5:45 AM EST) Troponin-T 0.05(H) <=0.03 ng/mL ARI[facility] NELSON Comment: 0.03 ng/mL: Represents the 99th percentile upper reference limit for normals. >0.03 ng/mL: Elevated cardiac troponin T level indicative of myocardial damage. Diagnosis of acute, evolving or recent MS requires a typical rise and gradual fall [...] consensus document of the Joint Society of Cardiology/[place] [employer] Committee for the redefinition of myocardial infarction. Journal of the [place] [employer] 2000; 36: 959-969] Creatine Kinase 82 0 - 200 unit/L ARIAN NELSON Blood specimen (specimen) 12/30/2011 5:45 AM EST 12/30/2011 6:10 AM EST Narrative Resulting Agency Comment Spec In Lab Remigio Ceron MD CHEMISTRY ORDERABLES Performing Organization Address [facility] Co de Phone Number ARIAN [...] PERIPHERAL BLOOD (12/29/2011 11:29 PM EST) Pathologist [facility] Plat estimate Normal CERNER MILLENNIUM RBC Morphology [...] damage. Diagnosis of acute, evolving or recent MS requires a typical rise and gradual fall [...] consensus document of the Joint Society of Cardiology/[place] [employer] Committee for the redefinition of myocardial infarction. Journal of the [place] [employer] 2000; 36: 959-969] Creatine Kinase 86 0 - 200 unit/L CERNER MILLENNIUM Blood specimen (specimen) 12/29/2011 11:29 PM EST 12/29/2011 11:34 PM EST Narrative Resulting Agency Comment Spec In Lab Remigio Ceron MD CHEMISTRY ORDERABLES Performing Organization Address [facility] de Phone Number ARIAN CERDAIUM * Prothrombin Time (12/29/2011 11:29 PM EST) Prothrombin Time 13.2 11.9 - 14.7 sec CERNER MILLENNIUM Comment: [facility] Transfusion Committee Guidelines: INR less than [...] MD HEMATOLOGY ORDERABLE S Performing Organization Address [facility] Phone Number ARIAN NELSON * Hepatic Function [...] Ceron MD CHEMISTRY ORDERABLES Performing Organization Address [facility] Co de Phone Number ARIAN NELSON * pro-Brain Natriuretic Peptide (12/29/2011 11:29 PM EST) NT-proBNP 114 <=125 pg/mL ARIAN CERDAIUM Blood specimen (specimen) 12/29/2011 11:29 PM EST 12/29/2011 11:34 PM EST Narrative Resulting Agency Comment Spec In Lab Remigio Ceron MD CHEMISTRY ORDERABLES Performing Organization Address [facility] Co de Phone Number ARIAN NELSON * TSH (12/29/2011 11:29 PM EST) Thyroid Stimulating Hormone 0.39 0.27 - 4.20 mcIU/mL ARIAN NELSON Blood specimen (specimen) 12/29/2011 11:29 PM EST 12/29/2011 11:34 PM EST Narrative Resulting Agency Comment Spec In Lab Remigio Ceron MD CHEMISTRY ORDERABLES Performing Organization Address [facility] de Phone Number ARIAN NELSON * Phosphorus (12/29/2011 11:29 PM EST) Phosphorus 3.1 2.5 - 4.5 mg/dL ARIAN NELSON Blood specimen (specimen) 12/29/2011 11:29 PM EST 12/29/2011 11:34 PM EST Narrative Resulting Agency Comment Spec In Lab Remigio Ceron MD CHEMISTRY ORDERABLES Performing Organization Address [facility] Co de Phone Number ARIAN CERDAIUM * Magnesium (12/29/2011 11:29 PM EST) Magnesium 0.83 0.69 - 1.07 mmol/L ARIAN CERDAIUM Blood specimen (specimen) 12/29/2011 11:29 [...] MD HEMATOLOGY ORDERABLE S Performing Organization Address [facility] Phone Number [facility] * APTT (12/29/2011 11:29 PM EST) Partial Thromboplastin Time 34 25 - 35 sec [facility] Comment: Recommended therapeutic PTT range for full dose unfractionated heparin is 80-114 seconds. Blood specimen (specimen) 12/29/2011 11:29 PM EST 12/29/2011 11:34 PM EST Narrative Resulting Agency Comment Spec In Lab Remigio Ceron MD HEMATOLOGY ORDERABLE S Performing Organization Address [facility] Phone Number [facility] * EKG 12 Lead (12/29/2011 11:13 PM EST) Ventricular rate 108 BPM MUSE SYSTEM Atrial Rate 108 BPM MUSE SYSTEM P-R Interval 150 ms MUSE SYSTEM QRS Duration 106 ms MUSE SYSTEM Q-T Interval 340 ms MUSE SYSTEM QTC Calculated (Bezet) 455 ms MUSE SYSTEM Calculated P [place] 19 degrees MUSE SYSTEM Calculated R [place] 31 degrees MUSE SYSTEM Calculated T [place] 51 degrees MUSE SYSTEM INTERPRETATION Sinus tachycardia Nonspecific T wave abnormality Abnormal ECG No previous ECGs available Confirmed by Madi FORD MD, Saulo ([id number]) on 12/30/2011 2:22:07 PM MUSE SYSTEM 12/29/2011 11:1 3 PM EST 12/30/2011 2:22 PM EST Remigio Ceron MD ECG ORDERABLES Performing Organization Address [facility] Phone Number MUSE SYSTEM documented in this [...] Chong RN)2100 (Not Given - Provider: Hermila Dumas, DAVID - Reason: Order parameters not met) 0730 [...] RN) 0900 (Given - Provider: Michelle Chong RN)2000 (Given - Provider: Hermila Dumas RN) 0900 (Given - Provider: Sangita Self RN) potassium chloride (K-DUR) tablet 20 mEq (CANCELED) 20 mEq, Oral, 2 TIMES DAILY, First dose on Wed01/05/12 at 2100, Until Discontinued, Routine 0900 (Given - Provider: Michelle Chong RN)2008 (Given - Provider: Hermila Dumas RN) 09 (Given - Provider: Michelle Chong RN) potassium [...] 1100, Until Discontinued, Patient using own, Routine 0900 (Given - Provider: Michelle Chong RN)1500 [...] Discontinued 314 (Given - Provider: Hermila Dumas RN)1115 (Given - Provider: Michelle Chong RN)2009 (Given - Provider: Hermila Dumas RN) 0315 (Given - Provider: Hermila Dumas RN)1114 (Given [...] For pain when taking by mouth, Routine 2023 (Given - Provider: Hermila Dumas RN)0305 (Given - Provider: Hermila Dumas RN - Comment: sternal)0610 (Given - Provider: Hermila Dumas RN)0920 (Given - Provider: Michelle Chong RN)1313 (Given - Provider: Annabella Gonzales)1725 (Given - Provider: Michelle Chong RN)203 (Given - Provider: Hermila Dumas RN)2359 (Given [...] Routine documented in this encounter Care Teams [employer] Relationship Specialty Start Date End Date Patric Al MD PCP - General 12/29/11 02/26/19 documented as of this encounter
--- OUTSIDE RECORDS SUMMARY | 2024-09-20 08:27 | XMS_ITS | Encounter Summary ---
Author Organization [facility] Address [facility] [place] [address] Care Team Providers Care Metal Building Assembler Name Role Phone Patric Al MD Primary Care Provider [phone] Encounter Details Date Type Department Care Team (Late st Contact Info) Description 01/04/2012 12:18 PM EST - 01/04/2012 4:46 PM EST Surgery [place] [address] Inna Tovar MD [facility] [place] [address] ENDOSCOPIC HARVEST VEIN(S) FOR CABG (WRVU 0.31) [...] 12:11 PM EST Geovanna Dixon Jr. 1975 [id number] New Diagnosis of Pre-Diabetes For discharge should [...] Some considerations about using metformin in Prediabetics: [place] Diabetes Prevention Program (DPP) as well as [...] - will be starting Cardiac rehab at [facility], encouraged to increase physical activity as advised by cardiologists Weight Loss - A 7% weight loss could significantly improve his BG control Tobacco cessation - There is growing evidence that cigarette smokers are more prone than the general population to develop T2DM. Increase in insulin resistance with tobacco use. Darcie Lange APRN [facility] Endocrinology Diabetes Management [phone] * Patient Instructions* Ricky Graham PA - [...] Anne Tovar and/or the Cardiothoracic Surgery Physician Premix Concrete Batcher Team may be reached at . Activity [...] Dr. Inna Tovar. You may use a Albers Track or treadmill but avoid any pulling [...] friends, go to a movie, go to anglican, etc. Heavy activities: No hunting, skiing, jogging, [...] would be to continue to go [place]. He has quit this way before and [...] only 10% of those who quit [place] are able to be successful. The calculated savings once he quits smoking would be $54 a week, $234 a month, and $2803 a year. If he quits now his savings will be $28,030 in 10 years. The patient was provided with a [facility] Smoking Cessation packet and the contents have been reviewed with him. The patient now has the Quit line number for [place] and has also been encouraged to use this ifneeded for support. In addition he was in agreement with a referral to the [place] Quitnetwork and a referral was faxed to [...] given to patient. Discharge summary faxed to [facility] and receipt confirmed via phone. Patient [...] outpatient basis Equipment needs: none ADEBAYO MCGARRY, ANGLE FURNACEMAN Pager: [phone] Physical Therapy Rehabilitation Department * Michelle Chong [...] services. Patient would like VNA services through [facility]. PHONE: [phone] FAX: [phone]. Referral made via E-discharge. Please see home care orders that must be included in discharge summary for VN services to start. Patient has glucometer and supplies at bedside. Pt. Denies any further needs from [facility]. Pt. Gets scripts through [place] Medicaid with co-pay. He denies any concerns related to co-pay. * Darcie Lange APRN - 01/07/2012 9:57 AM EST Geovanna Dixon Jr. 1975 [id number] PATRIC AL MD Follow Up Diabetes Consult [...] Some considerations about using metformin in Prediabetics: [place] Diabetes Prevention Program (DPP) as well as other minor studies and meta-analyses has convincingly demonstrated the efficacy of metformin in this patient group [pre-diabetics]. In addition, results of the 10 year DPP follow up have recently been published, demonstrating the rodent exterminator safety and sustainability of metformin treatment [...] - will be starting Cardiac rehab at [facility], encouraged to increase physical activity as [...] sensitive Novolog correction only Darcie Lange APRN [facility] Endocrinology Diabetes Management [phone] Pager [phone] This case was discussed with Dr. Christina Brody. 25 min time spent in patient care with 20 counseling, seeing patient, changing orders and discussion with the patient and the primary team as well as nursing. * Inna Tovar MD - 01/07/2012 9:39 AM EST Cardiac Surgery Progress Note: ID: [id number] 36/M POD #[address] Tovar [...] results found for this basename: phart, po2art, lul8bma Assessment/Plan: Pathway. Neuro: ambulating on own per [...] home. (ie take out the trash or fruit or nut picker his child) Objective:Pt was seen today [...] interventions: 30 minutes NAM TRINIDAD, PT Pager: [phone] Physical Therapy Rehabilitation Department * Vihba Martines APRN - 01/06/2012 4:25 PM EST [...] CABG performed by INNA TOVAR at [facility] MAIN OR ??? Cabg, artery-vein, single 01/04/2012 @CABG, VENOUS & ARTERIAL GRAFT;SINGLE VEIN GRAFT performed by INNA TOVAR at [facility] MAIN OR Outpatient prescriptions marked [...] Paternal Grandfather Reason for visit: Geovanna Dixon JrFlorencio was referred by Dr. Tovar for smoking [...] yes Date: 12/29/11 Why then: Admission to [facility] What will be different this time: Just [...] scale of 0(Not at all important)-10(Highest importantance): 10/ NICOTINE DEPENDENCE Fagerstrom Score: 5 0 Points 1Points 2 Points 3 Points Score 1.How soon after you wake do you smoke your first cigarette? After 60 minutes 31-60 minutes minutes 6-30 minutes Within 5 minutes 3 2. Do you find it difficult to refrain from smoking in places where it is forbidden ex anglican No Yes 0 3. Which cigarette would [...] would be to continue to go [place]. He has quit this way before and it lasted several years, so he has a history of being successful with this method. He also pointed out that his father and an uncle quit (for now over 10 years) by going [place]. I told him that it is difficult to recommend a quit method that has a 90% failure rate, but that said, it is his choice and that I would provide him with a toolkit of information so that he will be as knowledgeable as possible about nicotineaddiction and how to stay quit. And we do know that 10% of those who quit [place] are able to be successful. I calculated and shared with him that his savings once he quits smoking would be $54 a week, $234 amonth, and $2803 a year. If he quits now his savings will be $28,030 in 10 years. The patient has also been provided with a [facility] Smoking Cessation packet and the contents have been reviewed with him. The patient now has the Quit line number for [place] and has also been encouraged to use this if needed for support. In addition he was in agreement with a referral to the [place] Quitnetworkand I have FAXed a referral to [...] Nutrition Intervention: Hospital Day 9 Diet Order: [facility] Appetite: fair Food allergies: none Chewing/Swallowing difficulty: none Height: (cm) 180.3 Weight: (kg) 127.9 01/06/12 Wt hx: (kg) 124.5 12/29/11 BMI: 38.4 Education: [facility] dietary guidelines. Tips To Better Food Intake (Protein) dietary guidelines. Verbalized good understanding. Education material, with means of contact provided. Assessment: Patient verbalized good understanding of protein needs for healing as well as [facility] Heart Healthy guidelines. I have added high protein snacks between meals and CIB shakes to meal trays for extra protein/nutrition. Nutrition Plan: Diet: [facility] Recommend Daily Multi Vitamins. Added high protein snacks. CIB w/skim milk shakes three times per day. Encourage good po intake. Monitor weight. Support and encouragement provided. Nutrition services to follow weekly thru hospital course unless consulted in the interim. ACOSTA SMALL * Inna Tovar MD - 01/06/2012 1:50 PM EST Cardiac Surgery In Patient Progress Note Patient Name: Geovanna Dixon Jr. : [id number] MR#: [id number] Admitted: 12/29/2011 Hospital Day 8 days Problem [...] Hamlin, RN - 01/06/2012 10:11 AM EST [facility] CARDIAC REHABILITATION Geovanna Dixon Jr. was seen today regarding participation in outpatient Phase 2 Cardiac Rehabilitation at [facility] . A referral will be sent to this program. The patient was given contact information and should expect to be contacted by the program within 1-2 weeks after discharge from [facility]. * Kareen Mendoza, PT - 01/05/2012 3:59 [...] CABG performed by INNA TOVAR at [facility] MAIN OR ??? Cabg, artery-vein, single 01/04/2012 @CABG, VENOUS & ARTERIAL GRAFT;SINGLE VEIN GRAFT performed by INNA TOVAR at [facility] MAIN OR Social History: Patient [...] minutes brief evaluation KAREEN MENDOZA, PT Pager: [phone] Physical Therapy Rehabilitation Department * Camille Angulo [...] Heme: asa Endo: insulin gtt Dispo: CVCC-->floor IR * Rosie Anand RN - 01/04/2012 3:06 [...] MD Financial Concerns: insured via Medicare and [place] [employer] Transportation: With family members. Father was in room also and said he could drive as could step-daughter. Anticipated Services at Discharge: will require re-assessment closer to time of d/c. May need VNA. A: medical plan still evolving. P: This conventional mortgage underwriter or colleague from the Office of [...] GI: Famotidine 20 mg BID FULL CODE Katerynalori Delphine PGY 1 Pager [phone] Attending Addendum: I spoke with the patient and his family briefly this am. I agree with the principal findings. The impression and plan incorporate my input. No contraindication to surgery today. Sarthak Pollard MD [facility] pager [phone] * Sarthak Pollard MD - 01/03/2012 11:08 AM EST CARDIOLOGY INPATIENT PROGRESS NOTE Geovanna Dixon Jr. SUMMARY: Geoavnna Dixon Jr. is a 36 y.o. male [...] risk of aggravating CAD. Sarthak Pollard MD [facility] pager [phone] * Bal John MD - 01/02/2012 3:10 [...] (12/30/1115) ??? sodium chloride 0.9% 30 mL/hr (12/30/11 [...] Cristina Ambriz MD PGY1, Internal Medicine Pager [phone] 01/02/2012 Attending Addendum: I have interviewed and examined the patient. I agree with the principal findings. The impression and plan incorporate my input. As above, doing well. Will keep on heparin until surgery. No angina, HF, bleeding, or evidence of HIT. Sarthak Pollard MD [facility] pager [phone] * Inna Tovar MD - 01/01/2012 3:17 PM EST Please see Dr. Major's note from 12/31/11 for full details. Briefly, Mr. Dixon developed unstable angina and ruled in for NC. Cath shows severe 3 vessel disease. Echo [...] EST CARDIOLOGY INPATIENT PROGRESS NOTE Geovanna Shahmonika Winter SUMMARY: Geovanna Dixon Jr. is a 36 [...] mg BID Paola Akers PGY 1 Pager [phone] Attending Addendum: I have interviewed and examined the patient. I agree with the principal findings. The impression and plan incorporate my input. He is disappointed that his surgery has been postponed until Wednesday butunderstands. He remains cp free. I've reviewed his angiograms and believe he needs to stay on heparin until surgery. All questions answered. Sarthak Pollard MD [facility] pager [phone] * Andi Rene MD - 12/31/2011 5:20 [...] for chest pain as a transfer from [facility] - Cardiac cath yesterday showed [...] - GI: Famotidine 20 mg BID Paola Delphine PGY 1 Pager [phone] Cardiology Attending Progress Note Addendum: I have [...] would like to attend cardiac rehab at [facility] in [facility]. We will meet him again [...] Call saucedo within reach, family at bedside. [phone]) Patient off unit to XRAY with transpo & ICER MACHINE. documented in this encounter H&P Notes * [...] alleviate the pain. He eventually presented to [facility] on Wednesday wherehe had elevated [...] Lives on social security in house in [facility] with two children (18 and 4, and one step child) Active pack per day smoker (27pack year history) No etoh No drugs Enjoys riding motorcycles and hunting He is NOT a zoroastrian FHx: Heart disease on both sides of the family Father's side with multiple uncles with NC's, one at age of 40 Mother's side with uncle at age 50 from [place] Diabetes in mother ROS: Positive headache, nausea [...] 13.2 12/29/2011 PTT 31 12/30/2011 Troponins at [facility]: 0.05-->0.03 Imaging: Echo 12/30/11: 1. The left [...] op orders written, heparin gtt to stop radio division captain to OR. Pt seen and interviewed with [...] +active 25 pack year smoker comes to [facility] from [facility] for evaluation of intermittent CP [...] the hospital at about 4 PM on Sol[place] late afternoon. In addition to his CP, [...] history (both paternal grandparents passing away from [facility] and paternal aunts/uncles with histories [...] counseling Code Status - FULL Provider: REMIGIO ECRON MD Pager #: [phone] documented in this encounter Procedure Notes * Provider, Scanning - 01/10/2012 1:46 PM ESTAssociated Order(s): SCAN DOC: FINAL ASSEMBLY AND PACKING SUPERVISOR * Provider, Scanning - 01/10/2012 1:46 PM [...] EST * Consult Note - Darcie Lange, NATURAL REMEDY CONSULTANT - 01/06/2012 3:45 PM EST Geovanna Dixon Jr. 1975 [id number] Inpatient Endocrinology Glucose Management Consult Date of Consultation: 01/06/2012 Place of Consultation: [facility] Consult Requested by: Dr. Tovar, [place] Surgery Reason for Consultation: Geovanna Dixon Jr. [...] diabetes, uncertain on A1C #. As per [facility] labs last A1C = 6.1% which [...] Diabetes Care: Medications: None Monitoring: None Diet: [facility] Healthy No Known Allergies Past Medical History: [...] considerations about using metformin in Prediabetics: ?? [place] Diabetes Prevention Program (DPP) as well as other minor studies and meta-analyses hasconvincingly demonstrated the efficacy of metformin in this patient group [pre-diabetics]. In addition, results of the 10 year DPP follow up have recently been published, demonstrating the rodent exterminator safety and sustainability of metformin treatment [...] - will be starting Cardiac rehab at [facility], encouraged to increase physical activity as [...] metformin 500 mg QD Darcie Lange APRN [facility] Endocrinology Diabetes Management [phone] Pager [phone] This case was discussed with Dr. Christina [...] alleviate the pain. He eventually presented to [facility] on Wednesday where he had [...] Course: Geovanna Dixon Jr. was admitted to [facility] on 12/29/2011 to the cardiologyservice for [...] Medications: Geovanna Dixon Jr. Home Medication Instructions CRAIG:[id number] Printed on:01/08/12 4072 Medication Information simvastatin (ZOCOR) 20 mg tablet [...] Anne Tovar and/or the Cardiothoracic Surgery Physician Premix Concrete Batcher Team may be reached at . Activity [...] Dr. Inna Tovar. You may use a Albers Track or treadmill but avoid any pulling [...] friends, go to a movie, go to anglican, etc. Heavy activities: No hunting, skiing, jogging, [...] would be to continue to go [place]. He has quit this way before and [...] only 10% of those who quit [place] are able to be successful. The calculated savings once he quits smoking would be $54 a week, $234 a month, and $2803 a year. If he quits now his savings will be $28,030 in 10 years. The patient was provided with a [facility] Smoking Cessation packet and the contents have been reviewed with him. The patient now has the Quit line number for [place] and has also been encouraged to use this ifneeded for support. In addition he was in agreement with a referral to the [place] Quitnetwork and a referral was faxed to [...] Some considerations about using metformin in Prediabetics: [place] Diabetes Prevention Program (DPP) as well as other minor studies and meta-analyses has convincingly demonstrated the efficacy of metformin in this patient group [pre-diabetics]. In addition, results of the 10 year DPP follow up have recently been published, demonstrating the rodent exterminator safety and sustainability of metformin treatment [...] - will be starting Cardiac rehab at [facility], encouraged to increase physical activity as advised by cardiologists Weight Loss - A 7% weight loss could significantly improve his BG control Tobacco cessation - There is growing evidence that cigarette smokers are more prone than the general population to develop T2DM. Increase in insulin resistance with tobacco use. Darcie Lange APRN [facility] Endocrinology Diabetes Management [phone] Medications: Take only those medications listed on [...] should resume a low fat, low cholesterol, [place] Heart Association Diet. Driving: No driving for [...] in outpatient Phase 2 Cardiac Rehabilitation at [facility] . A referral will be sent to this program. He was given contact information and shouldexpect to be contacted by the program within 1-2 weeks after discharge from [facility]. Arrangements for VNA/home care: PATIENT'S LOCATION: Geovanna Dixon Jr. [address] [place] [address] There is no home phone number on file. Telephone Information: In discussion with the attending physician, it is certified that this patient is under their care and that they, or a nurse practitioner, clinical nurse specialist or physician's assistant manager of operations who is working directly with them, had [...] for services as follows: HOME HEALTH AGENCY: [facility]. PHONE: [phone] FAX: [phone] RN orders: Cardiopulmonary assessment, incisional assessment, assess [...] issues please call the Cardiac SurgeryOffice at [phone] FOR MEDICARE ONLY: (please delete this section if not Medicare) In discussion with the attending physician, it is certified that the clinical findings support thatthis patient is homebound (i.e. absences from home require considerable and taxing effort and are for medical reasons or restoration services of infrequently or of short duration [...] nurse practitioner, clinical nurse specialist or physician's assistant manager of operations who is working directly with them, had [...] effort and are for medical reasons or restoration services of infrequently or of short duration when for other reasons) Please note that any additional orders needs or changes will need to be obtained from this patient's PCP: PATRIC AL MD [phone] All VNA agencies which cover the area of patient's residence have been reviewed, either verbally feli writing, and patient/family have chosen the indicated home health care agency for home services. Comments: Questions: Responses: Agency name and contact information [facility] Patient location post discharge home What services are requested Start date 01/10/2012 Responsible MD post discharge contact info PCP RN to remove chest tube sutures on or after 01/13/12. Signed: Ricky Graham PA-C [facility] Section of Cardiothoracic Surgery Date: 01/08/12 CC: MD [facility] EMERGENCY DEPT [address] [place] [address] [place] [address] * Op Note - Inna Tovar MD - 01/04/2012 3:55 PM EST [facility] Operative Note Patient Name: Geovanna Dixon Jr. : [id number] MR#: [id number] Case Date: 01/04/2012 Surgeon: Surgeon(s) and Role: [...] enlarged. There was diffuse disease in all round valley vessels. The OFELIA and vein were of excellent quality. The lungs had early emphysematous changes. Procedure Details: The patient was brought to the operating room and given general anesthesia. A Pinon-Haley catheter, radial arterial line, and Mendez catheter [...] fter inspection for adequate hemostasis, two #28 Serbian chest tubes were placed and brought out [...] Note Patient Name: Geovanna Dixon Jr. : [id number] MR#: [id number] Case Date: 01/04/2012 Surgeon: Surgeon(s) and Role: * INNA TOVAR MD - Primary * JUSTIN ZUNIGA - Resident-Lesser Role Preoperative diagnosis: Coronary Artery Disease Postoperative diagnosis: Coronary Artery Disease Procedure(s): ENDOSCOPIC VEIN HARVEST CABG X 2 (HOLLEY-LAD, SVG-PDA) Anesthesia: General Estimated Blood Loss: Cell Saver Used Findings: Heart slightly enlarged. Diffuse disease in vessels. OEFLIA, vein excellent. Lungs with early emphysematous changes. 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 No recent out door activities or [...] likely. (Leukocytosis may be r/t stress of NC.) Bacteremia as a complication of his cath, [...] EST LAB SCAN 01/10/2012 1:46 PM EST FINAL ASSEMBLY AND PACKING SUPERVISOR SCAN 01/10/2012 1:46 PM EST CARDIAC CATH [...] Routine 01/05/20 2:00 AM EST CARDIAC ENZYMES ([facility]/CGP) Routine 01/05/2012 2:00 AM EST CREATININE Routine [...] 12/30/2011 4:25 PM EST TYPE AND SCREEN ([facility]/CGP/BABITA) Routine 12/30/2011 4:14 PM EST CARDIAC ENZYMES ([facility]/CGP) STAT 12/30/2011 2:08 PM EST APTT STAT 12/30/2011 2:08 PM EST HIV SCREEN, 4TH GENERATION ([facility]/CGP/APD/NLH) Routine 12/30/2011 10:18 AM EST ECHOCARDIOGRAM TRANSTHORACIC [...] Routine 12/30/2011 7:07 AM EST CARDIAC ENZYMES ([facility]/CGP) STAT 12/30/2011 5:45 AM EST APTT STAT [...] 12/29/19 12 11:29 PM EST CARDIAC ENZYMES ([facility]/CGP) STAT 12/29/2011 11:29 PM EST APTT STAT [...] (Bezet) 453 ms MUSE SYSTEM Calculated P Dinosaur 41 degrees MUSE SYSTEM Calculated R Dinosaur 25 degrees MUSE SYSTEM Calculated T Dinosaur 74 degrees MUSE SYSTEM INTERPRETATION Sinus tachycardia [...] SCAN EXT O RDR/RSLT * SCAN DOC: FINAL ASSEMBLY AND PACKING SUPERVISOR (01/10/2012 1:46 PM EST) Anatomical Region Laterality Modality Other Narrative 01/11/2012 8:32 AM EST Procedure Note Provider, Scanning - 01/10/2012 1:46 PM EST Scanning Provider MEDIA MGR SCAN EXT O RDR/RSLT * POCT GLUCOSE LAB USE ONLY (01/08/2012 12:00 PM EST) Glucose, POC 106 60 - 199 mg/dL [facility] Comment: Supplemental ranges: <110 mg/dL before meals <200 mg/dL all other times of the day Blood specimen (specimen) 01/08/2012 12:00 PM EST 01/08/2012 12:00 PM EST Andi Rene MD POINT OF CARE TEST O RDERABLES Performing Organization Address [facility] Co de Phone Number [facility] * Potassium (01/08/2012 10:05 AM EST) [facility] Potassium 4.2 3.5 - 5.0 mmol/L [facility] Comment: Please note: ??Patients with [...] Tovar MD CHEMISTRY ORDERABLES Performing Organization Address [facility] Co de Phone Number [facility] * POCT GLUCOSE LAB USE ONLY (01/08/2012 7:21 AM EST) Glucose, POC 144 60 - 199 mg/dL [facility] Comment: Supplemental ranges: <110 mg/dL before meals <200 mg/dL all other times of the day Blood specimen (specimen) 01/08/2012 7:21 AM EST 01/08/2012 7:21 AM EST Andi Rene MD POINT OF CARE TEST O GILDA Performing Organization Address [facility] de Phone Number [facility] * POCT GLUCOSE LAB USE ONLY (01/07/2012 8:43 PM EST) Glucose, POC 179 60 - 199 mg/dL [facility] Comment: Supplemental ranges: <110 mg/dL before meals <200 mg/dL all other times of the day Blood specimen (specimen) 01/07/2012 8:43 PM EST 01/07/2012 8:43 PM EST Andi Rene MD POINT OF CARE TEST O GILDA Performing Organization Address [facility] [facility] de Phone Number [facility] * POCT GLUCOSE LAB USE ONLY (01/07/2012 4:47 PM EST) Glucose, POC 128 60 - 199 mg/dL [facility] Comment: Supplemental ranges: <110 mg/dL before meals <200 mg/dL all other times of the day Blood specimen (specimen) 01/07/2012 4:47 PM EST 01/07/2012 4:47 PM EST Andi Rene MD POINT OF CARE TEST O GILDA Performing Organization Address [facility] de Phone Number [facility] * Potassium (01/07/2012 11:42 AM EST) Potassium 3.6 3.5 - 5.0 mmol/L [facility] Comment: Please note: ??Patients with [...] Tovar MD CHEMISTRY ORDERABLES Performing Organization Address [facility] Co de Phone Number [facility] * POCT GLUCOSE LAB USE ONLY (01/07/2012 11:41 AM EST) Glucose, POC 114 60 - 199 mg/dL [facility] Comment: Supplemental ranges: <110 mg/dL before meals <200 mg/dL all other times of the day Blood specimen (specimen) 01/07/2012 11:41 AM EST 01/07/2012 11:41 AM EST Andi Rene MD POINT OF CARE TEST O RDERABLES Performing Organization Address [facility] de Phone Number [facility] * XR chest routine PA & lateral [...] or postoperative mediastinal hematoma. ?? Procedure Note Czum, Lay M, MD - 01/07/2012 TWO-VIEW CHEST: INDICATION: Status [...] Panel (non-fasting) (01/07/2012 4:11 AM EST) Pathologist [facility] Glucose 127 60 - 199 mg/dL CERNER [...] Sarthak Pollard MD HEMATOLOGY ORDERABLE S [facility]ER [facility] * Microalbumin, urine, random (01/06/2012 9:03 PM EST) Creatinine, Urine 136 mg/dL DANIA HERNANDEZER MILLENNIUM Albumin, Urine 14.4 mg/L CERNE R MILLENNIUM Albumin / Creatinin Ratio, Urine 11 mcg/mg Cr CERNER MILLENNIUM Comment: Reference Range* Random collection (mcg/mg creatinine) Normal ?<30 Microalbuminuria ?? 30 - 300 Clinical Albuminuria ?? >300 *[place] Diabetes Association. Diabetic Nephropathy. Diabetes Care 1997;(Suppl 1):S24-S27 Exercise within 24 hour, infection, fever, CHF, marked hyperglycemia, and marked hypertension may elevate urinary albumin excretion over baseline values. Urine specimen (specimen) 01/06/2012 9:03 PM EST 01/06/2012 10:28 PM EST Narrative Resulting Agency Comment Spec In Lab Inna Tovar MD URINE ORDERABLES Performing Organization Address [facility] Phone Number [facility] * POCT GLUCOSE LAB USE ONLY (01/06/2012 7:46 PM EST) Glucose, POC 127 60 - 199 mg/dL [facility] Comment: Supplemental ranges: <110 mg/dL before meals <200 mg/dL all other times of the day Blood specimen (specimen) 01/06/2012 7:46 PM EST 01/06/2012 7:46 PM EST Andi Rene MD POINT OF CARE TEST O RDERABLES Performing Organization Address [facility] Phone Number [facility] * POCT GLUCOSE LAB USE ONLY (01/06/2012 4:24 PM EST) Glucose, POC 131 60 - 199 mg/dL [facility] Comment: Supplemental ranges: <110 mg/dL before meals <200 mg/dL all other times of the day Blood specimen (specimen) 01/06/2012 4:24 PM EST 01/06/2012 4:24 PM EST Andi Rene MD POINT OF CARE TEST O RDERAHERNANDEZ Performing Organization Address [facility] de Phone Number [facility] * POCT GLUCOSE LAB USE ONLY (01/06/2012 12:06 PM EST) Glucose, POC 160 60 - 199 mg/dL [facility] Comment: Supplemental ranges: <110 mg/dL before meals <200 mg/dL all other times of the day Blood specimen (specimen) 01/06/2012 12:06 PM EST 01/06/2012 12:06 PM EST Andi Rene MD POINT OF CARE TEST O RDERABLES Performing Organization Address [facility] Co de Phone Number [facility] PRASH[facility] * Potassium (01/06/2012 9:59 AM EST) Potassium 4.0 3.5 - 5.0 mmol/L [facility] Comment: Please note: ??Patients with [...] Tovar MD CHEMISTRY ORDERABLES Performing Organization Address [facility] [place] Phone Number [facility] * POCT GLUCOSE LAB USE ONLY (01/06/2012 6:53 AM EST) Glucose, POC 168 60 - 199 mg/dL [facility] Comment: Supplemental ranges: <110 mg/dL before meals <200 mg/dL all other times of the day Blood specimen (specimen) 01/06/2012 6:53 AM EST 01/06/2012 6:53 AM EST Andi Rene MD POINT OF CARE TEST O RDTYESHA Performing Organization Address [facility] Phone Number [facility] * POCT GLUCOSE LAB USE ONLY (01/06/2012 5:03 AM EST) Glucose, POC 147 60 - 199 mg/dL [facility] Comment: Supplemental ranges: <110 mg/dL before meals <200 mg/dL all other times of the day Blood specimen (specimen) 01/06/2012 5:03 AM EST 01/06/2012 5:03 AM EST Andi Rene MD POINT OF CARE TEST O RDERAHERNANDEZ Performing Organization Address [facility] [place] Phone Number [facility] * POCT GLUCOSE LAB USE ONLY (01/06/2012 3:16 AM EST) Glucose, POC 126 60 - 199 mg/dL [facility] Comment: Supplemental ranges: <110 mg/dL before meals <200 mg/dL all other times of the day Blood specimen (specimen) 01/06/2012 3:16 AM EST 01/06/2012 3:16 AM EST Andi Rene MD POINT OF CARE TEST O GILDA Performing Organization Address [facility] de Phone Number [facility] * POCT GLUCOSE LAB USE ONLY (01/06/2012 1:12 AM EST) Glucose, POC 135 60 - 199 mg/dL [facility] Comment: Supplemental ranges: <110 mg/dL before meals <200 mg/dL all other times of the day Blood specimen (specimen) 01/06/2012 1:12 AM EST 01/06/2012 1:12 AM EST Andi Rene MD POINT OF CARE TEST O GILDA Performing Organization Address [facility] de Phone Number [facility] * POCT GLUCOSE LAB USE ONLY (01/05/2012 11:52 PM EST) Glucose, POC 133 60 - 199 mg/dL [facility] Comment: Supplemental ranges: <110 mg/dL before meals <200 mg/dL all other times of the day Blood specimen (specimen) 01/05/2012 11:52 PM EST 01/05/2012 11:52 PM EST Andi eRne MD POINT OF CARE TEST O GILDA Performing Organization Address [facility] Co de Phone Number [facility] * POCT GLUCOSE LAB USE ONLY (01/05/2012 10:54 PM EST) Glucose, POC 130 60 - 199 mg/dL [facility] Comment: Supplemental ranges: <110 mg/dL before meals <200 mg/dL all other times of the day Blood specimen (specimen) 01/05/2012 10:54 PM EST 01/05/2012 10:54 PM EST Andi Rene MD POINT OF CARE TEST O RDTYESHA Performing Organization Address [facility] de Phone Number [facility] * POCT GLUCOSE LAB USE ONLY (01/05/2012 9:51 PM EST) Glucose, POC 132 60 - 199 mg/dL [facility] Comment: Supplemental ranges: <110 mg/dL before meals <200 mg/dL all other times of the day Blood specimen (specimen) 01/05/2012 9:51 PM EST 01/05/2012 9:51 PM EST Andi Rene MD POINT OF CARE TEST O GILDA Performing Organization Address [facility] Phone Number [facility] * POCT GLUCOSE LAB USE ONLY (01/05/2012 8:50 PM EST) Glucose, POC 126 60 - 199 mg/dL [facility] Comment: Supplemental ranges: <110 mg/dL before meals <200 mg/dL all other times of the day Blood specimen (specimen) 01/05/2012 8:50 PM EST 01/05/2012 8:50 PM EST Andi Rene MD POINT OF CARE TEST O GILDA Performing Organization Address [facility] de Phone Number [facility] * POCT GLUCOSE LAB USE ONLY (01/05/2012 8:07 PM EST) Glucose, POC 126 60 - 199 mg/dL [facility] Comment: Supplemental ranges: <110 mg/dL before meals <200 mg/dL all other times of the day Blood specimen (specimen) 01/05/2012 8:07 PM EST 01/05/2012 8:07 PM EST Andi Rene MD POINT OF CARE TEST O GILDA Performing Organization Address [facility] de Phone Number [facility] * POCT GLUCOSE LAB USE ONLY (01/05/2012 6:57 PM EST) Glucose, POC 137 60 - 199 mg/dL [facility] Comment: Supplemental ranges: <110 mg/dL before meals <200 mg/dL all other times of the day Blood specimen (specimen) 01/05/2012 6:57 PM EST 01/05/2012 6:57 PM EST Andi Rene MD POINT OF CARE TEST O GILDA Performing Organization Address [facility] Co de Phone Number [facility] * POCT GLUCOSE LAB USE ONLY (01/05/2012 4:59 PM EST) Glucose, POC 147 60 - 199 mg/dL [facility] Comment: Supplemental ranges: <110 mg/dL before meals <200 mg/dL all other times of the day Blood specimen (specimen) 01/05/2012 4:59 PM EST 01/05/2012 4:59 PM EST Andi Rene MD POINT OF CARE TEST Stephanie VO Performing Organization Address [facility] de Phone Number [facility] * POCT GLUCOSE LAB USE ONLY (01/05/2012 1:05 PM EST) Glucose, POC 154 60 - 199 mg/dL [facility] Comment: Supplemental ranges: <110 mg/dL before meals <200 mg/dL all other times of the day Blood specimen (specimen) 01/05/2012 1:05 PM EST 01/05/2012 1:05 PM EST Andi Rene MD POINT OF CARE TEST O DIMITRIERAHERNANDEZ Performing Organization Address [facility] de Phone Number [facility] * POCT GLUCOSE LAB USE ONLY (01/05/2012 12:42 PM EST) Glucose, POC 148 60 - 199 mg/dL [facility] Comment: Supplemental ranges: <110 mg/dL before meals <200 mg/dL all other times of the day Blood specimen (specimen) 01/05/2012 12:42 PM EST 01/05/2012 12:42 PM EST Andi Rene MD POINT OF CARE TEST O GILDA Performing Organization Address [facility] de Phone Number [facility] * POCT GLUCOSE LAB USE ONLY (01/05/2012 9:54 AM EST) Glucose, POC 145 60 - 199 mg/dL [facility] Comment: Supplemental ranges: <110 mg/dL before meals <200 mg/dL all other times of the day Blood specimen (specimen) 01/05/2012 9:54 AM EST 01/05/2012 9:54 AM EST Andi Rene MD POINT OF CARE TEST O GILDA Performing Organization Address [facility] de Phone Number [facility] * POCT GLUCOSE LAB USE ONLY (01/05/2012 8:00 AM EST) Glucose, POC 168 60 - 199 mg/dL [facility] Comment: Supplemental ranges: <110 mg/dL before meals <200 mg/dL all other times of the day Blood specimen (specimen) 01/05/2012 8:00 AM EST 01/05/2012 8:00 AM EST Andi Rene MD POINT OF CARE TEST O GILDA Performing Organization Address [facility] Co de Phone Number [facility] * POCT GLUCOSE LAB USE ONLY (01/05/2012 5:58 AM EST) Glucose, POC 164 60 - 199 mg/dL [facility] MILLENNIUM Comment: Supplemental ranges: <110 mg/dL before meals <200 mg/dL all other times of the day Blood specimen (specimen) 01/05/2012 5:58 AM EST 01/05/2012 5:58 AM EST Andi Rene MD POINT OF CARE TEST O RDERAHERNANDEZ Performing Organization Address [facility] Co de Phone Number [facility] * POCT GLUCOSE LAB USE ONLY (01/05/2012 4:12 AM EST) Glucose, POC 148 60 - 199 mg/dL [facility] Comment: Supplemental ranges: <110 mg/dL before meals <200 mg/dL all other times of the day Blood specimen (specimen) 01/05/2012 4:12 AM EST 01/05/2012 4:12 AM EST Andi Rene MD POINT OF CARE TEST O GILDA Performing Organization Address [facility] de Phone Number [facility] * POCT GLUCOSE LAB USE ONLY (01/05/2012 2:05 AM EST) Glucose, POC 148 60 - 199 mg/dL [facility] Comment: Supplemental ranges: <110 mg/dL before meals <200 mg/dL all other times of the day Blood specimen (specimen) 01/05/2012 2:05 AM EST 01/05/2012 2:05 AM EST Andi Rene MD POINT OF CARE TEST O GILDA Performing Organization Address [facility] Phone Number [facility] * (ABNORMAL) DIFFERENTIAL, AUTOMATED (01/05/2012 2:00 AM [...] damage. Diagnosis of acute, evolving or recent NC requires a typical rise and gradual fall [...] consensus document of the Joint Society of Cardiology/[place] College of Cardiology Committee for the redefinition of myocardial infarction. Journal of the [place] College of Cardiology 2000; 36: 959-969] Creatine Kinase 436(H) 0 - 200 unit/L [facility] Blood specimen (specimen) 01/05/2012 2:00 AM EST 01/05/2012 2:11 AM EST Narrative Resulting Agency Comment Spec In Lab Sarthak Pollard MD CHEMISTRY ORDERABLES Performing Organization Address [facility] de Phone Number [facility] * Potassium (01/05/2012 2:00 AM EST) Potassium 4.4 3.5 - 5.0 mmol/L [facility] Comment: Please note: ??Patients with [...] Pollard MD CHEMISTRY ORDERABLES Performing Organization Address [facility] de Phone Number [facility] * (ABNORMAL) Glucose, fasting (01/05/2012 2:00 AM EST) Glucose Fasting 148(H) 65 - 99 mg/dL [facility] Comment: ?Fasting* Glucose Interpretive Criteria [...] of Diabetes Mellitus, Position Statement from the [place] Diabetes Association. ??Diabetes Care, Volume 33, Supplement 1, Nov 2009 Blood specimen (specimen) 01/05/2012 2:00 AM EST 01/05/2012 2:11 AM EST Narrative Resulting Agency Comment Spec In Lab Sarthak Pollard MD CHEMISTRY ORDERABLES [facility] * Creatinine, serum (01/05/2012 2:00 AM EST) Creatinine 0.86 0.80 - 1.50 mg/dL CERNER MILLENNIUM Est Glomerular Filtration Rate >60 >=60 [facility] Comment: The National Kidney Disease Education [...] Pollard MD CHEMISTRY ORDERABLES Performing Organization Address [facility] de Phone Number [facility]ERBRIAN MILLEN[facility] * BUN (01/05/2012 2:00 AM EST) Blood Urea Nitrogen 10 10 - 20 mg/dL [facility]ER MILLENNI[facility] Blood specimen (specimen) 01/05/2012 2:00 AM EST 01/05/2012 2:11 AM EST Narrative Resulting Agency Comment Spec In Lab Sarthak Pollard MD CHEMISTRY ORDERABLES Performing Organization Address [facility] de Phone Number [facility]ILL[facility] * (ABNORMAL) CBC (with Diff) (01/05/2012 2:00 AM EST) Pathologist [facility] White Blood Cell 24.6(H) 4.0 - 10.0 [...] MD HEMATOLOGY ORDERABLE S Performing Organization Address [place]/[facility] Co de Phone Number CERNER MILLENNIUM * POCT GLUCOSE LAB USE ONLY (01/04/2012 11:58 PM EST) Glucose, POC 136 60 - 199 mg/dL [facility] Comment: Supplemental ranges: <110 mg/dL before meals <200 mg/dL all other times of the day Blood specimen (specimen) 01/04/2012 11:58 PM EST 01/04/2012 11:58 PM EST Andi Rene MD POINT OF CARE TEST O RDERABLES Performing Organization Address [facility] Phone Number [facility] * POCT GLUCOSE LAB USE ONLY (01/04/2012 9:00 PM EST) Glucose, POC 143 60 - 199 mg/dL [facility] Comment: Supplemental ranges: <110 mg/dL before meals <200 mg/dL all other times of the day Blood specimen (specimen) 01/04/2012 9:00 PM EST 01/04/2012 9:00 PM EST Andi Rene MD POINT OF CARE TEST O GILDA Performing Organization Address [facility] Phone Number [facility] * GLUCOSE, RANDOM (01/04/2012 9:00 PM EST) Glucose 128 60 - 199 mg/dL [facility] Comment:Diabetes: >=200 mg/d L plus symptoms Blood specimen (specimen) 01/04/2012 9:00 PM EST 01/04/2012 9:08 PM EST Narrative Resulting Agency Comment Spec In Lab Sarthak Pollard MD CHEMISTRY ORDERABLES Performing Organization Address [facility] Phone Number [facility] * (ABNORMAL) Hemoglobin (01/04/2012 9:00 PM EST) Hemoglobin 13.6(L) 13.7 - 17.5 gm/dL [facility] Blood specimen (specimen) 01/04/2012 9:00 PM EST 01/04/2012 9:08 PM EST Narrative Resulting Agency Comment Spec In Lab Sarthak Pollard MD HEMATOLOGY ORDERABLE S ARIAN NELSON * Potassium (01/04/2012 9:00 PM [...] Pollard MD CHEMISTRY ORDERABLES Performing Organization Address [facility] Co de Phone Number ARIAN NELSON * (ABNORMAL) BLOOD GAS 2 ARTERIAL (01/04/2012 6:47 PM EST) pH, Arterial 7.33(L) CERNER MILLENNIUM PCO2, Arterial 47(H) mmHg CERNE R MILLENNIUM PO2, Arterial 109(H) mmHg CERNER MILLENNIUM Bicarbonate, Arterial 24.1 mmol/L CERNER MILLENNIUM Base Excess, Arterial -1.9 mmol/L [facility]ERNER MILL[facility] Hgb Blood Gas 14.1 gm/dL CERNER MILLENNIUM Comment: Total Hemoglobin (in gm/dL) ?Based on [facility] Hematology ranges: ?Age ?Reference Range Less than [...] Comment: Total Hemoglobin (in gm/dL) ?Based on [facility] Hematology ranges: ?Age ?Reference Range Less than [...] Comment: Total Hemoglobin (in gm/dL) ?Based on [facility] Hematology ranges: ?Age ?Reference Range Less than [...] (Bezet) 455 ms MUSE SYSTEM Calculated P Dinosaur 48 degrees MUSE SYSTEM Calculated R Dinosaur 23 degrees MUSE SYSTEM Calculated T Dinosaur 71 degrees MUSE SYSTEM INTERPRETATION Normal sinus rhythm Normal ECG When compared with ECG of 30-DEC-2011 17:24, Vent. rate has decreased BY ??35 BPM Minimal criteria for Inferior infarct are no longer Present Nonspecific T wave abnormality, improved in Anterolateral leads Confirmed by fellow MD Steve, Luca ([id number]) on 01/05/2012 10:22:57 AM Confirmed by MD BENITES BRUCE ([id number]) on 01/05/2012 1:30:02 PM MUSE SYSTEM [...] l) mmHg CERNER MILLENNIUM Comment: Noted by precision instrument maker. MTF PO2, Arterial 145(H) mmHg CERNER MILLENNIUM Bicarbonate, Arterial 25.5 mmol/L CERNER MILLENNIUM Base Excess, Arterial -0.7 mmol/L CERNER MILLENNIUM Hgb Blood Gas 11.1(L) gm/dL CERNER MILLENNIUM Comment: Total Hemoglobin (in gm/dL) ?Based on [facility] Hematology ranges: ?Age ?Reference Range Less than [...] CARE TEST O RDERABLES Performing Organization Address [facility] Co de Phone Number [facility] * THROMBIN TIME (01/04/2012 3:28 PM EST) Thrombin Time 17 15 - 20 sec [facility] Blood specimen (specimen) 01/04/2012 3:28 PM EST 01/04/2012 3:28 PM EST Narrative Resulting Agency Comment Spec In Lab Sarthak Pollard MD HEMATOLOGY ORDERABLE S Performing Organization Address [facility] Co de Phone Number [facility] * FIBRINOGEN (01/04/2012 3:28 PM EST) Fibrinogen 364 200 - 470 mg/dL CERNER MILLENNIUM Comment:Called by: [facility], Read back by: AKANKSHA SAMPSON, Date/Time:01/04/12 15:45. Blood specimen (specimen) 01/04/2012 3:28 PM EST 01/04/2012 3:28 PM EST Narrative Resulting Agency Comment Spec In Lab Sarthak Pollard MD HEMATOLOGY ORDERABLE S Performing Organization Address [facility] Phone Number ARIAN CAENNIUM * APTT (01/04/2012 3:28 PM EST) Partial Thromboplastin Time 30 25 - 35 sec [facility] Comment: Recommended therapeutic PTT range for full dose unfractionated heparin is 80-114 seconds. Blood specimen (specimen) 01/04/2012 3:28 PM EST 01/04/2012 3:28 PM EST Narrative Resulting Agency Comment Spec In Lab Sarthak Pollard MD HEMATOLOGY ORDERABLE S Performing Organization Address [facility] Phone Number ARIAN CAENNIUM * (ABNORMAL) PROTHROMBIN TIME (01/04/2012 3:28 PM EST) Prothrombin Time 17.8(H) 11.9 - 14.7 sec [facility] Comment: [facility] Transfusion Committee Guidelines: INR less than 2.0, PTT less than OR equal to 43.5 seconds, or Fibrinogen greater than or equal to 100 mg/dl indicate adequate procoagulant activity for hemostasis in patients without underlying bleeding disorders. International Normalization Ratio 1.4(H) 0.9 - 1.1 [facility] MILLENNIUM Blood specimen (specimen) 01/04/2012 3:28 PM EST 01/04/2012 3:28 PM EST Narrative Resulting Agency Comment Spec In Lab Sarthak Pollard MD HEMATOLOGY ORDERABLE S Performing Organization Address [facility] de Phone Number ARIAN CAENNIUM * (ABNORMAL) [...] l) mmHg CERNER MILLENNIUM Comment: Noted by precision instrument maker. MTF PO2, Arterial 296(H) mmHg CERNER MILLENNIUM Bicarbonate, Arterial 26.3(H) mmol/L CERNER MILLENNIUM Base Excess, Arterial 0.1 mmol/L CERNER MILLENNIUM Hgb Blood Gas 10.2(L) gm/dL CERNER MILLENNIUM Comment: Total Hemoglobin (in gm/dL) ?Based on [facility] Hematology ranges: ?Age ?Reference Range Less than [...] CARE TEST O RDERABLES CERBRIAN CAENNIUM * FIBRINOGEN (01/04/2012 2:25 PM EST) Fibrinogen 356 200 - 470 mg/dL CERNER MILLENNIUM Comment:Called by: LEILANI, Read back by: AKANKSHA CAMILLA, Date/Time:01/04/12 14:49. Blood specimen (specimen) 01/04/2012 2:25 PM EST 01/04/2012 2:32 PM EST Narrative Resulting Agency Comment Spec In Lab Sarthak Pollard MD HEMATOLOGY ORDERABLE S Performing Organization Address [facility] Co de Phone Number CERBRIAN CAENNIUM * PLATELET COUNT (01/04/2012 2:25 PM EST) Platelet 281 145 - 370 x10(3)/mcL CERNER MILLENNIUM Blood specimen (specimen) 01/04/2012 2:25 PM EST 01/04/2012 2:32 PM EST Narrative Resulting Agency Comment Spec In Lab Sarthak Pollard MD HEMATOLOGY ORDERABLE S Performing Organization Address [facility] Co de Phone Number CERNER ROBYENNIUM * (ABNORMAL) BLOOD GAS 2 ARTERIAL (01/04/2012 12:59 PM EST) pH, Arterial 7.36 CERNER MILLENNIUM PCO2, Arterial 48(H) mmHg CERNE R MILLENNIUM PO2, Arterial 197(H) mmHg CERNER MILLENNIUM Bicarbonate, Arterial 26.7(H) mmol/L CERNER MILLENNIUM Base Excess, Arterial 1.3 mmol/L CERNER MILLENNIUM Hgb Blood Gas 13.9 gm/dL CERNER MILLENNIUM Comment: Total Hemoglobin (in gm/dL) ?Based on [facility] Hematology ranges: ?Age ?Reference Range Less than [...] BANK PRODUCT O RDERABLES Performing Organization Address [facility] Co de Phone Number ARIAN NELSON * Prepare RBC (01/04/2012 12:05 PM EST) Dispensed? Yes ARIAN NELSON Blood specimen (specimen) 01/04/2012 12:05 PM EST 01/04/2012 12:01 PM EST Narrative Resulting Agency Comment Spec In Lab Inna Tovar MD BLOOD BANK PRODUCT O RDERABLES Performing Organization Address [facility] Co de Phone Number ARIAN NELSON * (ABNORMAL) DIFFERENTIAL, MANUAL (01/04/2012 4:40 AM [...] 0.0 - 0.2 x10(3)/mc L CERNER MILLENNIUM [place] Absolute Manual 0.3(H) 0.0 - 0.0 x10(3)/mc [...] of Diabetes Mellitus, Position Statement from the [place] [employer] Association. ??Diabetes Care, Volume 33, Supplement [...] Rene MD CHEMISTRY ORDERABLES Performing Organization Address City/[facility]/ZIP Co de Phone Number CERNER MILLENNIUM * [...] ORDERABLE S ARIAN NELSON * (ABNORMAL) APTT (01/04/2012 4:40 AM EST) Partial Thromboplastin Time 103(H) 25 - 35 sec CERNER MILLENNIUM Comment: Recommended therapeutic PTT range for full dose unfractionated heparin is 80-114 seconds. Blood specimen (specimen) 01/04/2012 4:40 AM EST 01/04/2012 4:52 AM EST Narrative Resulting Agency Comment Spec In Lab Sarthak Pollard MD HEMATOLOGY ORDERABLE S Performing Organization Address City/[facility]/ZIP Co de Phone Number CERNER MILLENNIUM * (ABNORMAL) APTT (01/03/2012 7:38 PM EST) Partial Thromboplastin Time 98(H) 25 - 35 sec CERNER MILLENNIUM Comment: Recommended therapeutic PTT range for full dose unfractionated heparin is 80-114 seconds. Blood specimen (specimen) 01/03/2012 7:38 PM EST 01/03/2012 7:53 PM EST Narrative Resulting Agency Comment Spec In Lab Sarthak Pollard MD HEMATOLOGY ORDERABLE S Performing Organization Address [facility] de Phone Number CERNER MILLENNIUM * (ABNORMAL) APTT (01/03/2012 12:17 PM EST) Partial Thromboplastin Time 101(H) 25 - 35 sec CERNER MILLENNIUM Comment: Recommended therapeutic PTT range for full dose unfractionated heparin is 80-114 seconds. Blood specimen (specimen) 01/03/2012 12:17 PM EST 01/03/2012 12:26 PM EST Narrative Resulting Agency Comment Spec In Lab Sarthak Pollard MD HEMATOLOGY ORDERABLE S Performing Organization Address [facility] Co de Phone Number CERNER MILLENNIUM [...] MD HEMATOLOGY ORDERABLE S Performing Organization Address [facility] de Phone Number ARIAN CERDAIUM * ANTIBODY SCREEN (01/03/2012 6:15 AM EST) Ab Screen Interp Negative CERBRIAN CAENNIUM Expires at [phone] on: [id number] CERNER ROBYENNIUM Blood specimen (specimen) 01/03/2012 6:15 AM EST 01/03/2012 6:35 AM EST Narrative Resulting Agency Comment Spec In Lab Sarthak Pollard MD BLOOD BANK LAB ORDER RANDELL Performing Organization Address [facility] de Phone Number ARIAN CERDAIUM * ABO/RH TYPING (01/03/2012 6:15 AM EST) ABORH Type A Pos CERNER ROBYENNIUM Blood specimen (specimen) 01/03/2012 6:15 AM EST 01/03/2012 6:35 AM EST Narrative Resulting Agency Comment Spec In Lab Sarthak Pollard MD BLOOD BANK LAB ORDER RANDELL Performing Organization Address City/[facility]/ZIP Co de Phone Number CERNER MILLENNIUM * [...] of Diabetes Mellitus, Position Statement from the [place] [employer]. ??Diabetes Care, Volume 33, Supplement [...] Lab Andi Rene MD CHEMISTRY ORDERABLES CERBRIAN CERDAIUM * (ABNORMAL) CBC (with Diff) (01/03/2012 6:15 [...] Hemoglobin Concentration 34.6 32.0 - 36.5 gm/dL [facility] Platelet 295 145 - 370 x10(3)/mc L [facility] RDW Standard Deviation 40.5 35.0 - 46.0 fL [facility] RDW coefficient of variation 12.6 10.9 - 14.4 % [facility] Mean Platelet Volume 9.9 9.0 - 12.0 fL [facility] MILLENNIUM Blood specimen (specimen) 01/03/2012 6:15 AM EST 01/03/2012 6:23 AM EST Narrative Resulting Agency Comment Spec In Lab Remigio Ceron MD HEMATOLOGY ORDERABLE S Performing Organization Address City/[facility]/ZIP Co de Phone Number [facility] * (ABNORMAL) APTT (01/02/2012 11:21 PM EST) Partial Thromboplastin Time 69(H) 25 - 35 sec [facility] Comment: Recommended therapeutic PTT range for full dose unfractionated heparin is 80-114 seconds. Blood specimen (specimen) 01/02/2012 11:21 PM EST 01/02/2012 11:24 PM EST Narrative Resulting Agency Comment Spec In Lab Sarthak Pollard MD HEMATOLOGY ORDERABLE S [facility] * (ABNORMAL) APTT (01/02/2012 5:32 PM EST) Partial Thromboplastin Time 53(H) 25 - 35 sec [facility] Comment: Recommended therapeutic PTT range [...] MD HEMATOLOGY ORDERABLE S Performing Organization Address City/[facility]/ZIP Co de Phone Number CERNER MILLENNIUM * [...] Absolute 0.10(H) 0.00 - 0.05 x10(3)/mc L [facility] Blood specimen (specimen) 01/02/2012 6:02 AM EST 01/02/2012 6:29 AM EST Remigio Ceron MD HEMATOLOGY ORDERABLE S Performing Organization Address [facility] Phone Number [facility] * (ABNORMAL) APTT (01/02/2012 6:02 AM EST) Partial Thromboplastin Time 42(H) 25 - 35 sec [facility] Comment: Recommended therapeutic PTT range for full dose unfractionated heparin is 80-114 seconds. Blood specimen (specimen) 01/02/2012 6:02 AM EST 01/02/2012 6:29 AM EST Narrative Resulting Agency Comment Spec In Lab Sarthak Pollard MD HEMATOLOGY ORDERABLE S Performing Organization Address [facility] Phone Number [facility] * (ABNORMAL) BMP w/fasting Glucose (01/02/2012 6:02 AM EST) Glucose Fasting 113(H) 65 - 99 mg/dL [facility] Comment: ?Fasting* Glucose Interpretive Criteria [...] of Diabetes Mellitus, Position Statement from the [place] [employer]. ??Diabetes Care, Volume 33, Supplement [...] EST Sarthak Pollard MD HEMATOLOGY ORDERABLE S [facility] ROB[facility] * (ABNORMAL) CBC (with Diff) (01/01/2012 6:37 [...] MD HEMATOLOGY ORDERABLE S Performing Organization Address [facility] Phone Number [facility] * POCT GLUCOSE LAB USE ONLY (01/01/2012 12:02 PM EST) Glucose, POC 99 60 - 199 mg/dL [facility] Comment: Supplemental ranges: <110 mg/dL before meals <200 mg/dL all other times of the day Blood specimen (specimen) 01/01/2012 12:02 PM EST 01/01/2012 12:02 PM EST Andi Rene MD POINT OF CARE TEST O RDERABLES Performing Organization Address [facility] Phone Number [facility] * (ABNORMAL) APTT (01/01/2012 11:59 AM EST) Partial Thromboplastin Time 108(H) 25 - 35 sec [facility] Comment: Recommended therapeutic PTT range for full dose unfractionated heparin is 80-114 seconds. Blood specimen (specimen) 01/01/2012 11:59 AM EST 01/01/2012 12:06 PM EST Narrative Resulting Agency Comment Spec In Lab Andi Rene MD HEMATOLOGY ORDERABLE S Performing Organization Address [facility] Phone Number [facility] * XR chest routine PA [...] of Diabetes Mellitus, Position Statement from the [place] [employer]. ??Diabetes Care, Volume 33, Supplement [...] MD HEMATOLOGY ORDERABLE S Performing Organization Address City/[facility] Co de Phone Number [facility] * (ABNORMAL) APTT (12/31/2011 11:01 PM EST) Partial Thromboplastin Time 72(H) 25 - 35 sec [facility] MILLENNIUM Comment: Recommended therapeutic PTT range for full dose unfractionated heparin is 80-114 seconds. Blood specimen (specimen) 12/31/2011 11:01 PM EST 12/31/2011 11:18 PM EST Narrative Resulting Agency Comment Spec In Lab Andi Rene MD HEMATOLOGY ORDERABLE S Performing Organization Address City/[facility] Co de Phone Number [facility] * Upper Respiratory Culture Throat (12/31/2011 9:55 PM EST) Upper Respiratory Culture ? Patient Name: ZACK , GEOVANNA Llanos ? Ordered By: ANDI RENE ? MR#: [id number] ?LOC: ??[facility] ? /Sex: ??1975 (36 years), [...] Rene MD MICROBIOLOGY - GENER AL ORDERABLES [facility] * (ABNORMAL) APTT (12/31/2011 4:34 PM EST) Partial Thromboplastin Time 66(H) 25 - 35 sec ARIAN ROBYPETR Comment: Recommended therapeutic PTT range for full dose unfractionated heparin is 80-114 seconds. Blood specimen (specimen) 12/31/2011 4:34 PM EST 12/31/2011 4:39 PM EST Narrative Resulting Agency Comment Spec In Lab Andi Rene MD HEMATOLOGY ORDERABLE S ARIAN NELSON * Duplex Study for DVT, Bilat legs (12/31/2011 11:07 AM EST) VB Text Report Department: Vascular Surgery Lab Patient: [id number] (GEOVANNA DIXON) CPT Code: 76955 ICD-9: 780.6 Referring Physician: ANDI RENE Indication: [...] AM EST) Smear Review Report ? [facility] ? Provider: ?? ANDI RENE ?Pt. Name: ?? GEOVANNA DIXON JR P ? Acc #: ?[id number] ? Pt. ? Col Date: ?? 12/31/2011 [...] CERNER MILLENNIUM 12/31/2011 10:3 9 AM EST Andichristina Rene MD HEMATOLOGY ORDERABLE S CERNER MILLENNIUM [...] Andi S Anju DE HEMATOLOGY ORDERABLE S CERBRIAN CAENNIUM * (ABNORMAL) DIFFERENTIAL, AUTOMATED (12/31/2011 9:44 AM [...] MD HEMATOLOGY ORDERABLE S Performing Organization Address [facility]/ZIP Co de Phone Number ARIAN CERDAIUM * Lactate Dehydrogenase (12/31/2011 9:44 AM EST) Lactate Dehydrogenase 123 110 - 220 unit/L CERNER MILLENNIUM Blood specimen (specimen) 12/31/2011 9:44 AM EST 12/31/2011 10:12 AM EST Narrative Resulting Agency Comment Spec In Lab Andi Rene MD CHEMISTRY ORDERABLES ARIAN CERDAIUM * Peripheral Smear Review (12/31/2011 9:44 AM EST) Peripheral Smear Review See Comment CERBRIAN CAENNIUM Comment: When completed by the Pathologist, report [id number] will display under Hematology Reports. Blood specimen (specimen) 12/31/2011 9:44 AM EST 12/31/2011 10:12 AM EST Narrative Resulting Agency Comment Spec In Lab Andi Rene MD HEMATOLOGY ORDERABLE S Performing Organization Address [facility] Co de Phone Number ARIAN NELSON * (ABNORMAL) APTT (12/31/2011 9:44 AM EST) Pathologist [facility] Partial Thromboplastin Time 50(H) 25 - 35 sec ARIAN ROBYENNIUM Comment: Recommended therapeutic PTT range for full dose unfractionated heparin is 80-114 seconds. Blood specimen (specimen) 12/31/2011 9:44 AM EST 12/31/2011 10:12 AM EST Narrative Resulting Agency Comment Spec In Lab Andi Rene MD HEMATOLOGY ORDERABLE S Performing Organization Address [facility] Co de Phone Number ARIAN CERDAIUM * (ABNORMAL) DIFFERENTIAL, AUTOMATED (12/31/2011 3:38 AM EST) Pathologist [facility] Neutrophil % 76.0(H) 34.0 - 71.0 % [...] Gran % 0.40 0.00 - 0.66 % [facility] Comment: Immature granulocytes(IG's)percentage and absolute count will include metamyelocytes, myelocytes, and promyelocytes. Blood smears from CBCs yielding IG's will be scanned manually for concordance. If this scan disagrees with the automated IG or if promyelocytes are noted, a manual differential will be performed. Immature Gran Absolute 0.08(H) 0.00 - 0.05 x10(3)/mc L [facility] Blood specimen (specimen) 12/31/2011 3:38 AM EST 12/31/2011 3:50 AM EST Remigio Ceron MD HEMATOLOGY ORDERABLE S Performing Organization Address [facility]/ZIP Co de Phone Number [facility] * (ABNORMAL) APTT (12/31/2011 3:38 AM EST) Partial Thromboplastin Time 47(H) 25 - 35 sec [facility] Comment: Recommended therapeutic PTT range for full dose unfractionated heparin is 80-114 seconds. Blood specimen (specimen) 12/31/2011 3:38 AM EST 12/31/2011 3:50 AM EST Narrative Resulting Agency Comment Spec In Lab Andi Rene MD HEMATOLOGY ORDERABLE S Performing Organization Address [facility] Co de Phone Number [facility] * (ABNORMAL) BMP w/fasting Glucose (12/31/2011 3:38 AM EST) Glucose Fasting 114(H) 65 - 99 mg/dL [facility] Comment: ?Fasting* Glucose Interpretive Criteria [...] of Diabetes Mellitus, Position Statement from the [place] [employer]. ??Diabetes Care, Volume 33, Supplement [...] MD HEMATOLOGY ORDERABLE S Performing Organization Address [facility] Co de Phone Number [facility] * (ABNORMAL) APTT (12/30/2011 9:02 PM EST) Partial Thromboplastin Time 37(H) 25 - 35 sec [facility] Comment: Recommended therapeutic PTT range for full dose unfractionated heparin is 80-114 seconds. Blood specimen (specimen) 12/30/2011 9:02 PM EST 12/30/2011 9:10 PM EST Narrative Resulting Agency Comment Spec In Lab Andi Rene MD HEMATOLOGY ORDERABLE S Performing Organization Address [facility] de Phone Number [facility] * EKG 12 Lead (12/30/2011 5:24 PM EST) Ventricular rate 107 BPM MUSE SYSTEM Atrial Rate 107 BPM MUSE SYSTEM P-R Interval 160 ms MUSE SYSTEM QRS Duration 104 ms MUSE SYSTEM Q-T Interval 310 ms MUSE SYSTEM QTC Calculated (Bezet) 413 ms MUSE SYSTEM Calculated P Dinosaur 24 degrees MUSE SYSTEM Calculated R Dinosaur 25 degrees MUSE SYSTEM Calculated T Dinosaur 54 degrees MUSE SYSTEM INTERPRETATION Sinus tachycardia Cannot rule out Inferior infarct , age undetermined Nonspecific T wave abnormality Abnormal ECG When compared with ECG of 29-DEC-2011 23:13, No significant change was found Confirmed by MD VAIBHAV, SARTHAK ([id number]) on 12/31/2011 10:51:02 AM MUSE SYSTEM 12/30/2011 5:24 PM EST 12/31/2011 10:51 AM EST Andi Rene MD ECG ORDERABLES Performing Organization Address [facility] Co de Phone Number MUSE SYSTEM * Blood culture (12/30/2011 5:04 PM EST) Blood Culture ? Patient Name: GEOVANNA DIXON JR ?Ordered By: ANDI RENE ? MR#: [id number] ?LOC: ??[facility] ? /Sex: ??1975 (36 years), [...] Resulting Agency Comment Spec In Lab Andi Rnee MD MICROBIOLOGY - BLOOD ORDERABLES ARIAN NELSON * Blood culture (12/30/2011 4:51 PM EST) Blood Culture ? Patient Name: ZACK GEOVANNA REYNA ?Ordered By: ANDI RENE ? MR#: [id number] ?LOC: ??[facility] ? /Sex: ??1975 (36 years), [...] PM EST) ABORH Type A Pos ARIAN CAENNIUM Blood specimen (specimen) 12/30/2011 4:25 PM EST 12/30/2011 4:36 PM EST Narrative Resulting Agency Comment Spec In Lab Andi Rene MD BLOOD BANK LAB ORDER RANDELL ARIAN CERDAIUM * Glucose, random (12/30/2011 4:25 PM EST) Glucose 126 60 - 199 mg/dL CERNER MILLENNIUM Comment:Diabetes: >=200 mg/d L plus symptoms Blood specimen (specimen) 12/30/2011 4:25 PM EST 12/30/2011 4:43 PM EST Narrative Resulting Agency Comment Spec In Lab Andi Rene MD CHEMISTRY ORDERABLES Performing Organization Address [facility] de Phone Number ARIAN CAENNIUM * (ABNORMAL) [...] MD HEMATOLOGY ORDERABLE S Performing Organization Address [facility]/ZIP Co de Phone Number ARIAN NELSON * APTT (12/30/2011 2:08 PM EST) Partial Thromboplastin Time 31 25 - 35 sec [facility] Comment: Recommended therapeutic PTT range for full dose unfractionated heparin is 80-114 seconds. Blood specimen (specimen) 12/30/2011 2:08 PM EST 12/30/2011 2:27 PM EST Narrative Resulting Agency Comment Spec In Lab Andi Rene MD HEMATOLOGY ORDERABLE S Performing Organization Address [facility] Co de Phone Number ARIAN NELSON * Cardiac Enzymes (12/30/2011 2:08 PM EST) Troponin-T 0.03 <=0.03 ng/mL [facility] Comment: 0.03 ng/mL: Represents the 99th percentile upper reference limit for normals. >0.03 ng/mL: Elevated cardiac troponin T level indicative of myocardial damage. Diagnosis of acute, evolving or recent NC requires a typical rise and gradual fall [...] consensus document of the Joint Society of Cardiology/[place] College of Cardiology Committee for the redefinition of myocardial infarction. Journal of the [place] College of Cardiology 2000; 36: 959-969] Creatine Kinase 72 0 - 200 unit/L [facility] Blood specimen (specimen) 12/30/2011 2:08 PM EST 12/30/2011 2:27 PM EST Narrative Resulting Agency Comment Spec In Lab Remigio Ceron MD CHEMISTRY ORDERABLES Performing Organization Address [facility] Co de Phone Number [facility] * HIV (12/30/2011 10:18 AM EST) Pathologist [facility] HIV 1/2 Ab Negative [facility] Blood specimen (specimen) 12/30/2011 10:18 AM EST 12/30/2011 10:28 AM EST Narrative Resulting Agency Comment Spec In Lab Andi Rene MD CHEMISTRY ORDERABLES Performing Organization Address [facility] Co de Phone Number [facility] * Echo Transthoracic (Complete) (12/30/2011 9:47 AM EST) Pathologist [facility] EF 55 HEARTLAB SYSTEM Anatomical Region Laterality Modality Other 12/30/2011 Narrative 12/30/2011 10:02 AM EST Procedure: ? Transthoracic Echocardiogram Patient: ? ZACK Llanos ?(Age): 1975(36) Med Rec#: ?[id number] ? Sex: ?M ? Site Loc: ?[facility] ? Ht / Wt: ??180(cm)/124(kg) Pt. Loc: ? Adult Floor ?BSA: ?2.41 Study Date: ?12/30/2011 ? Pt. Type: Inpatient Tape: ? Referring: Remigio Ceron Scheduling Specialist: Benjamin Lundberg Diagnosis: ??Chest pain (786.50) CPT Code(s): ??Spectral Doppler (41637), ??Color Doppler (42961), ??Echo Full (09768), Indication(s): ??Chest Pain Rhythm: HR ?BP ?106/60 [...] 10:01:28 Images reviewed and interpretation verified [facility] Cardiac Ultrasound Laboratory Procedure Note Zak Coley MD - 12/30/2011 Procedure: Transthoracic Echocardiogram Patient: ZACK MILLIGAN(Age): 1975(36) Med Rec#: [id number] Sex: M Site Loc: [facility] Ht / Wt: 180(cm)/124(kg) Pt. Loc: Adult Floor BSA: 2.41 Study Date: 12/30/2011 Pt. Type: Inpatient Tape: Referring: Remigio Ceron Scheduling Specialist: Benjamin Lundberg Diagnosis: Chest pain (786.50) CPT Code(s): Spectral Doppler (03605), Color Doppler (72290), Echo Full (07273), Indication(s): Chest Pain Rhythm: HR BP 106/60 [...] 10:01:28 Images reviewed and interpretation verified [facility] Cardiac Ultrasound Laboratory Remigio Ceron MD [...] Urine Dipstick Clear Clear CERNER MILLENNIUM Specific [place] Urine Automated 1.019 1.002 - 1.030 CERNER [...] In Lab Andi Rene MD URINE ORDERABLES [facility] ROB[facility] * Rapid Qual Drug Screen, Urine ([facility]) (12/30/2011 9:32 AM EST) U IVAN Screen [...] testing device is being used in the [facility] Chemistry Laboratory. Please contact the chemistry laboratory at [phone] with questions. Urine specimen (specimen) 12/30/2011 9:32 AM EST 12/30/2011 9:45 AM EST Narrative Resulting Agency Comment Spec In Lab Andi Rene MD URINE ORDERABLES ARIAN NELSON * Urine culture Clean Catch Urine (12/30/2011 9:31 AM EST) Urine Culture ? Patient Name: GEOVANNA DIXON JR ?Ordered By: ANDI RENE ? MR#: [id number] ?LOC: ??ICCU ? /Sex: ?? 4 (36 [...] Comment Spec In Lab Andiemely Rene MD MICROBIOLOGY - GENER AL ORDERABLES [...] MD HEMATOLOGY ORDERABLE S Performing Organization Address [facility]/ZIP Co de Phone Number ARIAN NELSON * Hemoglobin A1c (12/30/2011 7:07 [...] into estimated average glucose values. ??Diabetes Care 2008:31(8):7341-2884. Blood specimen (specimen) 12/30/2011 7:07 AM EST 12/30/2011 7:18 AM EST Narrative Resulting Agency Comment Spec In Lab Remigio Ceron MD CHEMISTRY ORDERABLES Performing Organization Address [facility] de Phone Number [facility] * (ABNORMAL) APTT (12/30/2011 5:45 AM EST) Partial Thromboplastin Time 45(H) 25 - 35 sec [facility] Comment: Recommended therapeutic PTT range for full dose unfractionated heparin is 80-114 seconds. Blood specimen (specimen) 12/30/2011 5:45 AM EST 12/30/2011 6:10 AM EST Narrative Resulting Agency Comment Spec In Lab Andi Rene MD HEMATOLOGY ORDERABLE S Performing Organization Address [facility] de Phone Number [facility] * (ABNORMAL) Glucose, fasting (12/30/2011 5:45 AM EST) Glucose Fasting 108(H) 65 - 99 mg/dL [facility] Comment: ?Fasting* Glucose Interpretive Criteria [...] of Diabetes Mellitus, Position Statement from the [place] Diabetes Association. ??Diabetes Care, Volume 33, Supplement 1, Nov 2009 Blood specimen (specimen) 12/30/2011 5:45 AM EST 12/30/2011 6:10 AM EST Narrative Resulting Agency Comment Spec In Lab Remigio Ceron MD CHEMISTRY ORDERABLES Performing Organization Address [facility] Co de Phone Number [facility] * (ABNORMAL) Triglyceride (12/30/2011 5:45 AM EST) Triglyceride 245(H) <=149 mg/dL [facility] Comment: Reference Range: Normal triglycerides: ??<150 mg/dL Borderline high: ??150-199 mg/dL High: ??200-499 mg/dL Very high: ??>ls=209 mg/dL ELISEO 2001; 285(19):7322-3509 Blood specimen (specimen) 12/30/2011 5:45 AM EST 12/30/2011 6:10 AM EST Narrative Resulting Agency Comment Spec In Lab Remigio Ceron MD CHEMISTRY ORDERABLES Performing Organization Address [facility] Co de Phone Number [facility] * (ABNORMAL) HDL/Cholesterol Profile (12/30/2011 5:45 AM EST) Cholesterol, Total 170 <=199 mg/dL [facility] Comment: Recommendations of the NCEP Adult Treatment Panel for the following risk cutoff thresholds for the [place] population: Desirable: <200 mg/dL Borderline High: 200-239 mg/dL High: > or = 240 mg/dL HDL Cholesterol 36(L) >=40 mg/dL [facility] Comment: Reference range: ??Low HDL: ?? < 40 mg/dL ??Normal: ?40-60 mg/dL ??Desirable: > 60 mg/dL ELISEO 2001; 285(19):8929-6869 Cholesterol/HDL Ratio 4.7 ratio [facility] Comment: A Cholesterol to HDL ratio below 4:1 is desirable. ??Studies suggest that increased CAD risk occurs at ratios above 5 for females and above 6 for men. ? [place] Heart Association ??(http://www.americanheart.org) ? Jazmine Int Med, 1994; 121:641 ? AM J Med, 1998; 105(1A):48S Blood specimen (specimen) 12/30/2011 5:45 AM EST 12/30/2011 6:10 AM EST Narrative Resulting Agency Comment Spec In Lab Remigio Ceron MD CHEMISTRY ORDERABLES [facility] * (ABNORMAL) LDL Cholesterol, Direct (12/30/2011 5:45 AM EST) LDL Cholesterol, Direct 110(H) <=99 mg/dL [facility] Comment: The National Cholesterol Education Program (NCEP) has set the following guidelines for LDL Cholesterol: Reference range: ?? Optimal: ?<100 mg/dL ?? Near Optimal/Above Optimal: ?? 100-129 mg/dL ?? Borderline high: ?130-159 mg/dL ?? High: ? 160-189 mg/dL ?? Very high: ?>aj=497 mg/dL ELISEO 2001: 28519):1179-1507 Blood specimen (specimen) 12/30/2011 5:45 AM EST 12/30/2011 6:10 AM EST Narrative Resulting Agency Comment Spec In Lab Remigio Ceron MD CHEMISTRY ORDERABLES Performing Organization Address [facility] de Phone Number ARIAN NELSON * (ABNORMAL) Cardiac Enzymes (12/30/2011 5:45 AM EST) Troponin-T 0.05(H) <=0.03 ng/mL ARIAN NELSON Comment: 0.03 ng/mL: Represents the 99th percentile upper reference limit for normals. >0.03 ng/mL: Elevated cardiac troponin T level indicative of myocardial damage. Diagnosis of acute, evolving or recent NC requires a typical rise and gradual fall [...] consensus document of the Joint Society of Cardiology/[place] College of Cardiology Committee for the redefinition of myocardial infarction. Journal of the [place] College of Cardiology 2000; 36: 959-969] Creatine Kinase 82 0 - 200 unit/L ARIAN NELSON Blood specimen (specimen) 12/30/2011 5:45 AM EST 12/30/2011 6:10 AM EST Narrative Resulting Agency Comment Spec In Lab Remigio Ceron MD CHEMISTRY ORDERABLES Performing Organization Address [facility] de Phone Number ARIAN NELSON * XR [...] PERIPHERAL BLOOD (12/29/2011 11:29 PM EST) Pathologist [facility] Plat estimate Normal CERNER MILLENNIUM RBC Morphology Normal CERNE R MILLENNIUM Blood specimen (specimen) 12/29/2011 11:29 PM EST 12/29/2011 11:35 PM EST Narrative Resulting Agency Comment Spec In Lab Remigio Ceron MD HEMATOLOGY ORDERABLE S CERNER MILLENNIUM * (ABNORMAL) DIFFERENTIAL, AUTOMATED (12/29/2011 11:29 PM EST) Pathologist [facility] Neutrophil % 86.3(H) 34.0 - 71.0 % [...] EST Remigio Ceron MD HEMATOLOGY ORDERABLE S [facility] * (ABNORMAL) Cardiac Enzymes (12/29/2011 11:29 PM EST) Troponin-T 0.08(H) <=0.03 ng/mL CERNER MILLENNIUM Comment: 0.03 ng/mL: Represents the 99th percentile upper reference limit for normals. >0.03 ng/mL: Elevated cardiac troponin T level indicative of myocardial damage. Diagnosis of acute, evolving or recent NC requires a typical rise and gradual fall [...] consensus document of the Joint Society of Cardiology/[place] College of Cardiology Committee for the redefinition of myocardial infarction. Journal of the [place] College of Cardiology 2000; 36: 959-969] Creatine Kinase 86 0 - 200 unit/L CERNER MILLENNIUM Blood specimen (specimen) 12/29/2011 11:29 PM EST 12/29/2011 11:34 PM EST Narrative Resulting Agency Comment Spec In Lab Remigio Ceron MD CHEMISTRY ORDERABLES Performing Organization Address [facility] de Phone Number ARIAN CERDAIUM * Prothrombin Time (12/29/2011 11:29 PM EST) Prothrombin Time 13.2 11.9 - 14.7 sec CERNER MILLENNIUM Comment: [facility] Transfusion Committee Guidelines: INR less [...] MD HEMATOLOGY ORDERABLE S Performing Organization Address [facility] de Phone Number ARIAN NELSON * Hepatic [...] Ceron MD CHEMISTRY ORDERABLES Performing Organization Address [facility] Co de Phone Number CERNER ROBYENNIUM * pro-Brain Natriuretic Peptide (12/29/2011 11:29 PM EST) NT-proBNP 114 <=125 pg/mL CERNER MILLENNIUM Blood specimen (specimen) 12/29/2011 11:29 PM EST 12/29/2011 11:34 PM EST Narrative Resulting Agency Comment Spec In Lab Remigio Ceron MD CHEMISTRY ORDERABLES Performing Organization Address [facility] Co de Phone Number CERNER ROBYENNIUM * TSH (12/29/2011 11:29 PM EST) Thyroid Stimulating Hormone 0.39 0.27 - 4.20 mcIU/mL CERNER MILLENNIUM Blood specimen (specimen) 12/29/2011 11:29 PM EST 12/29/2011 11:34 PM EST Narrative Resulting Agency Comment Spec In Lab Remigio Ceron MD CHEMISTRY ORDERABLES Performing Organization Address [facility] Co de Phone Number CERNER ROBYENNIUM * Phosphorus (12/29/2011 11:29 PM EST) Phosphorus 3.1 2.5 - 4.5 mg/dL CERNER MILLENNIUM Blood specimen (specimen) 12/29/2011 11:29 PM EST 12/29/2011 11:34 PM EST Narrative Resulting Agency Comment Spec In Lab Remigio Ceron MD CHEMISTRY ORDERABLES Performing Organization Address [facility] Co de Phone Number CERNER ROBYENNIUM * Magnesium (12/29/2011 11:29 PM EST) Magnesium 0.83 0.69 - 1.07 mmol/L CERNER MILLENNIUM Blood specimen (specimen) 12/29/2011 11:29 PM EST 12/29/2011 11:34 PM EST Narrative Resulting Agency Comment Spec In Lab Remigio Ceron MD CHEMISTRY ORDERABLES CERNER ROBYENNIUM * (ABNORMAL) Basic Metabolic Panel (non-fasting) (12/29/2011 [...] Platelet Volume 10.5 9.0 - 12.0 fL CERBRIAN CAENNIUM Blood specimen (specimen) 12/29/2011 11:29 PM EST 12/29/2011 11:34 PM EST Narrative Resulting Agency Comment Spec In Lab Remigio Ceron MD HEMATOLOGY ORDERABLE S Performing Organization Address [facility] de Phone Number [facility] * APTT (12/29/2011 11:29 PM EST) Partial Thromboplastin Time 34 25 - 35 sec [facility] Comment: Recommended therapeutic PTT range for full dose unfractionated heparin is 80-114 seconds. Blood specimen (specimen) 12/29/2011 11:29 PM EST 12/29/2011 11:34 PM EST Narrative Resulting Agency Comment Spec In Lab Remigio Ceron MD HEMATOLOGY ORDERABLE S Performing Organization Address [facility] de Phone Number [facility] * EKG 12 Lead (12/29/2011 11:13 PM EST) Ventricular rate 108 BPM MUSE SYSTEM Atrial Rate 108 BPM MUSE SYSTEM P-R Interval 150 ms MUSE SYSTEM QRS Duration 106 ms MUSE SYSTEM Q-T Interval 340 ms MUSE SYSTEM QTC Calculated (Bezet) 455 ms MUSE SYSTEM Calculated P Dinosaur 19 degrees MUSE SYSTEM Calculated R Dinosaur 31 degrees MUSE SYSTEM Calculated T Dinosaur 51 degrees MUSE SYSTEM INTERPRETATION Sinus tachycardia Nonspecific T wave abnormality Abnormal ECG No previous ECGs available Confirmed by Madi FORD MD, Nathaniel (58) on 12/30/2011 2:22:07 PM MUSE SYSTEM 12/29/2011 11:1 3 PM EST 12/30/2011 2:22 PM EST Remigio Ceron MD ECG ORDERABLES Performing Organization Address [facility] de Phone Number MUSE SYSTEM documented in [...] Michelle Chong, DAVID)1800 (Given - Provider: Michelle Chong, DAVID) 0000 [...] Discontinued, Routine 0900 (Given - Provider: Michelle Chnog RN)2008 (Given - Provider: Hermila Dumas RN) [...] Provider: Hermila Dumas RN)2352 (Given - Provider: Hemrila Dumas RN) 0100 (Given - Provider: Hermila [...] Routine documented in this encounter Care Teams Metal Building Assembler Relationship Specialty Start Date End Date Patric Al MD PCP - General 12/29/11 02/26/19 documented as of this encounter
--- OUTSIDE RECORDS SUMMARY | 2024-09-20 08:28 | XMS_ITS | Encounter Summary ---
Author Organization [facility] Address [address] [place] [address] Care Team Providers Care Court Crier Name Role Phone Unavailable Primary Care Provider Unavailabl e Encounter Details Date Type Department Care Team (Late st Contact Info) Description 03/09/2008 Before PRISM Converted Visit (Maple) [facility] - Maple conversion [address] [place] [address] Wil Tay MD [address] [address] Social History Tobacco Use Types Packs/Day Years Used Date Smoking Tobacco: Never Assessed Sex and Gender Information Value Date Recorded Sex Assigned at Not on file Legal Sex Male 18:37 EST Gender Identity Not on file Sexual Orientation Not on file documented as of this encounter Progress Notes * Wil Tay* MD SANTINO - 08/09/2009 0909 EDT March 09, 2008 Anna Hoang MD [facility] [address] [address] Dear Anna: Thank you for referring Mr. [...] and an EEG that was normal in [place], [place]. He currently is taking a [...] He denies symptoms of restless legs. His [place] sleepiness is 23/24. PAST MEDICAL HISTORY Hypertension. He has just recently developed hypertension. He did not respond well to lisinopril, so he is currently on Cozaar and this has been helping his blood pressure some. It has not worsened his cataplexy any. ALLERGIES No known drug allergies. MEDICATIONS Cozaar, methylphenidate, amphetamine, clomipramine, Provigil, Effexor, Viagra, Rolaids, and Tylenol. SOCIAL HISTORY He has a 23-nonm-zxhv history of smoking, which is a lot for a young man like him. He drinks 8-12 cups of coffee a day. No other caffeine intake. No alcohol. No drug use. 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 Coordination: Normal [id number]-jl-ozianv and ndifns-ip-xgjm and rapid alternating movements. DTRs are +2 [...] his hometown. 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, [place] [address]* documented in this encounter Plan of Treatment Not on file documented as of this encounter Visit Diagnoses Not on filedocumented in this encounter
--- OUTSIDE RECORDS SUMMARY | 2024-09-20 08:28 | XMS_ITS | Clinical Summary ---
Author Organization [facility] Address [address] [place] [address] Care Team Providers Care Contractor Field Hauling Name Role Phone Cameron Patel Viet VAULT MANAGER Primary Care Provider [phone] Medications LOSARTAN POTASSIUM (COZAAR ORAL) Take by mouth. A ctive METHENAM/ME BLUE/BA/SALICY/ HYO (METHYLPHEN ORAL) Take by mouth. Activ e UNABLE TO FIND Amphetamine unspecified Active CLOMIPRAMINE HCL (CLOMIPRAMINE ORAL) Take by mouth. Activ e MODAFINIL (PROVIGIL ORAL) Take by mouth. Active VENLAFAXINE HCL (EFFEXOR ORAL) Take by mouth. Active SILDENAFIL CITRATE (VIAGRA ORAL) Take by mouth. Activ e CALCIUM CARBONATE/MAG HYDROX (ROLAIDS ORAL) Take by mouth. Activ e ACETAMINOPHEN (TYLENOL ORAL) Take by mouth. Active [...] - 19+ 3-dose series) 04/14 COVID-19 Vaccine ( - 2023- season) 2024 Hepatitis C Screen Completed 12/02/2022 Procedures Procedure Name Priority Date/Time Associated Diagnosis Comments HEPATITIS C AB W REFLEX TO HCV RNA BY PCR Routine 12/02/2022 11:40 EST from Last 3 Months or Most Recently Relevant to Health Maintenance Results * HEPATITIS C AB W REFLEX TO HCV RNA BY PCR (12/02/2022 11:40 EST) Hep C Antibody Negative Negative 12/04/2022 8:56 EST [facility] Blood VENOUS BLOOD / Unknown 12/02/2022 11:40 EST 12/03/2022 17:36 EST us Provider Outr Resulting Lab CHEMISTRY & BLOOD GA S ORDERABLES Final Result [facility] [address] [place] [address] from Last 3 Months or Most Recently Relevant to Health Maintenance Care Teams Contractor Field Hauling Relationship Specialty Start Date End Date Cameron Patel, VAULT MANAGER [address] [place] [phone] PCP - General 10/22/09
--- OUTSIDE RECORDS SUMMARY | 2024-09-20 08:28 | XMS_ITS | Encounter Summary ---
Author Organization [facility] Address [address] [place] [address] Care Team Providers Care Customer Energy Specialist Name Role Phone JorgeAinsleytierra Llanos ORDER TO DELIVERY SUPERVISOR Primary Care Provider Encounter Details Date Type Department Care Team (Late st Contact Info) Description 12/03/2022 Lab Requisition [facility] Pathology & Laboratory Medicine - [address] [address] Outr Resulting Lab, Provider Social History Tobacco [...] C Antibody Negative Negative 12/04/2022 8:56 EST [facility] Blood VENOUS BLOOD / Unknown 12/02/2022 11:40 EST 12/03/2022 17:36 EST us Provider Outr Resulting Lab CHEMISTRY & BLOOD GA S ORDERABLES Final Result [facility] [address] [place] [address] documented in this encounter Visit Diagnoses Not on filedocumented in this encounter Care Teams Customer Energy Specialist Relationship Specialty Start Date End Date Cameron Patel, ORDER TO DELIVERY SUPERVISOR [address] [place] [phone] PCP - General 10/22/09 documented as of this encounter
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
--- OUTSIDE RECORDS SUMMARY | 2024-09-20 08:28 | XMS_ITS | Referral Summary ---
Author Organization [facility] Address [address] [place] [address] Care Team Providers Care Pelt Shearer Name Role Phone JorgeCameron Viet PROJECT COORDINATOR Primary Care Provider [phone] Medications LOSARTAN POTASSIUM (COZAAR ORAL) Take by [...] C Antibody Negative Negative 12/04/2022 8:56 EST [facility] Blood VENOUS BLOOD / Unknown 12/02/2022 11:40 EST 12/03/2022 17:36 EST us Provider Outr Resulting Lab CHEMISTRY & BLOOD GA S ORDERABLES Final Result [facility] [address] [place] [address] from Last 3 Months or Most Recently Relevant to Health Maintenance Care Teams Pelt Shearer Relationship Specialty Start Date End Date Cameron Patel, PROJECT COORDINATOR [address] [facility] [place] [phone] PCP - General 10/22/09
--- OUTSIDE RECORDS SUMMARY | 2024-09-20 08:28 | XMS_ITS | Encounter Summary ---
Author Organization [facility] Address [address] [place] [address] Care Team Providers Care Hydraulic Auto Jack Mechanic Name Role Phone JorgeAinsleytierra Llanos CRIMINAL JUSTICE FACULTY Primary Care Provider [phone] Encounter Details Date Type Department Care Team (Late st Contact Info) Description 12/03/2022 Lab Requisition [facility] Pathology & Laboratory Medicine - [address] [address] Outr Resulting Lab, Provider Social History Tobacco [...] 4th Generation Negative Negative 12/04/2022 9:22 EST [facility] Comment:If acute HIV-1 infec tion is suspected in a high risk patient, submit plasma specimen for HIV-1 RNA quantitation test. Blood VENOUS BLOOD / Unknown 12/02/2022 11:40 EST 12/03/2022 17:37 EST Narrative [facility] - 12/04/2022 9:22 EST Fourth Generation assay performed on the Siemens Centaur XPT. us Provider Outr Resulting Lab IMMUNOLOGY AND SEROL OGY ORDERABLES Final Result [facility] [address] [place] [address] documented in this encounter Visit Diagnoses Not on filedocumented in this encounter Care Teams Hydraulic Auto Jack Mechanic Relationship Specialty Start Date End Date Cameron Patel, CRIMINAL JUSTICE FACULTY [address] [place] [phone] PCP - General 10/22/09 documented as of this encounter
--- OUTSIDE RECORDS SUMMARY | 2024-09-20 08:28 | XMS_ITS | Encounter Summary ---
Author Organization [facility] Address [address] [place] [address] Care Team Providers Care Shipping/Receiving Clerk Name Role Phone Unavailable Primary Care Provider Unavailabl e Encounter Details Date Type Department Care Team (Late st Contact Info) Description 11/23/2005 14:17 EST Hospital Encounter [address] [address] Jorge Urrutia MD [address] [place] [phone] Social History Tobacco Use Types Packs/Day Years [...]
--- OUTSIDE RECORDS SUMMARY | 2024-09-20 08:28 | XMS_ITS | Encounter Summary ---
Author Organization [facility] Address [address] [place] [address] Care Team Providers Care Yard Rigger Name Role Phone Unavailable Primary Care Provider Unavailabl e Encounter Details Date Type Department Care Team (Latest Contact Info) Description 03/09/2008 10:00 EDT - 03/09/2008 11:59 EDT Hospital Encounter [facility] - Other [address] [place] [address] Attarian, Wil Llanos MD [address] [address] Discharge Disposition: Auto Discharge Social [...] reading/interpreti ng unformatted reports. ? Name: ? GEOVANNA ARAYA ? Accession #: ? [id number] ? : ? 1975 (Age: 34) ??M [...] Gross Description: ? Received in formalin labelled Zack, Geovanna and R vas def is a 1.2 cm in length by 0.2 cm in diameter firm, white, tubular segment of tissue with a ? pinpoint lumen. ??Two player services representative cross sections are submitted as (A). ? Received in formalin labelled Zack Geovanna and L vas def is a 0.8 cm in ? length by 0.2 cm in diameter firm, white, focally light maynard tubular segment of ?? tissue with a pinpoint lumen. ??Two player services representative cross sections of the specimen are submitted as (B). (Mary Anne Cheng)/mpl ? End of Report ? 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 Two views of the orbits show no metallic foreign body. Procedure Note Song Hall MD - 04/21/2009 acc wet read please call [phone] with results sheet metal lay out worker needs orbits prior to mri ORBITS FOR FOREIGN BODY March 09, 2008 10:17:00 AM Signs and Symptoms: acc wet read please call [phone] with results sheet metal lay out worker needs orbits prior to mri. Two views of the orbits show no metallic foreign body. us Wil Llanos Attleeanna DE IMG DIAGNOSTIC IMAGING ORDER RANDELL Final Result documented in this encounter Visit Diagnoses Not on filedocumented in this encounter
--- OUTSIDE RECORDS SUMMARY | 2024-09-20 08:28 | XMS_ITS | Encounter Summary ---
Author Organization [facility] Address [address] [place] [address] Care Team Providers Care Cytotechnologist/Histotechnologist Name Role Phone Cameron Patel GUEST ASSOCIATE Primary Care Provider [phone] Encounter Details Date Type Department Care Team (Late st Contact Info) Description 05/27/2010 Abstract Used for ABSTRACTING Data [phone] Cameron Patel, GUEST ASSOCIATE [address] [place] [address] Social History Tobacco Use Types [...] may reflect changes made after this encounter. ACETAMINOPHEN (TYLENOL ORAL) Take by mouth. CALCIUM CARBONATE/MAG HYDROX (ROLAIDS ORAL) Take by mouth. SILDENAFIL CITRATE (VIAGRA ORAL) Take by mouth. VENLAFAXINE HCL (EFFEXOR ORAL) Take by mouth. MODAFINIL (PROVIGIL ORAL) Take by mouth. CLOMIPRAMINE HCL (CLOMIPRAMINE ORAL) Take by mouth. UNABLE TO FIND Amphetamine unspecified METHENAM/ME BLUE/BA/SALICY/H YO (METHYLPHEN ORAL) Take by mouth. LOSARTAN POTASSIUM (COZAAR ORAL) Take by mouth. added in this encounter Care Teams Cytotechnologist/Histotechnologist Relationship Specialty Start Date End Date Cameron Patel GUEST ASSOCIATE [address] [place] [address] PCP - General 10/22/09 documented as of this encounter
--- OUTSIDE RECORDS SUMMARY | 2024-09-20 08:28 | XMS_ITS | Encounter Summary ---
[facility] Address [facility] [place] [address] Care Team Providers Care Flat Hammerer Name Role Phone Guanako Gusman MD Primary Care Provider [phone] Encounter Details Date Type Department Care Team (Late st Contact Info) Description 12/29/2011 Orders Only Cardiology at [address] [phone] Sarthak Pollard MD [facility] [address] Social History Tobacco Use Types Packs/Day Years [...] is a non-reportable exam. Sarthak Pollard MD [facility]RARY ORD ERABLES RAD [address] [facility] [place] [place] [address] documented in this encounter Visit Diagnoses Not on filedocumented in this encounter Care Teams Flat Hammerer Relationship Specialty Start Date End Date Guanako Gusman MD PCP - General 12/29/11 02/26/19 documented as of this encounter
--- OUTSIDE RECORDS SUMMARY | 2024-09-20 08:28 | XMS_ITS | Encounter Summary ---
Author Organization [facility] Address [address] [place] [address] Care Team Providers Care Dry Goods Inspector Name Role Phone JorgeAinsleytierra Llanos ELECTRIC GAS APPLIANCES DEMONSTRATOR Primary Care Provider [phone] Encounter Details Date Type Department Care Team (Late st Contact Info) Description 10/02/2020 Lab Requisition [facility] Pathology & Laboratory Medicine - [address] [address] Outr Resulting Lab, Provider Social History Tobacco [...] 4th Generation Negative Negative 10/22/2020 13:59 EST [facility] Comment: If acute HIV-1 infection is suspected in a high risk ??patient, submit plasma specimen for HIV-1 RNA quantitation test. Fourth Generation assay performed on the Siemens Centaur. Blood VENOUS BLOOD / Unknown 09/19/2020 16:00 EST 10/22/2020 7:12 EST us Provider Outr Resulting Lab IMMUNOLOGY AND SEROL OGY ORDERABLES Final Result [facility] [address] [place] [address] documented in this encounter Visit Diagnoses Not on filedocumented in this encounter Care Teams Dry Goods Inspector Relationship Specialty Start Date End Date Cameron Patel, ELECTRIC GAS APPLIANCES DEMONSTRATOR [address] [facility] [place] [phone] PCP - General 10/22/09 documented as of this encounter
--- NOTE | 2024-09-20 08:30 | DI.CT_ITS ---
Exam(s) CT LOWER EXTREMITY LT CTA EXAM: CT LOWER EXTREMITY LT CTA CLINICAL HISTORY: Recent sx, leg pain. TECHNIQUE: Imaging Protocol: Axial CT angiography was performed with multi-slice acquisition and mu lti-planar and/or 3D reconstructions. CONTRAST MATERIAL: Intravenous: Omnipaque 350 Contrast volume:100 ml Contrast route:IV - Oral: No COMPARISON: CT CT ABD AORTA CTA W RUNOFF from 05/28/2024 FINDINGS: Vascular Structures: Pelvis: Left iliac Artery: Scattered calcification but no evidence of significant stenosis. Patient is status post femoral popliteal bypass surgery. The graft is patent throughout. There is s urrounding fluid. No evidence of extravasation. No drainable collections. [place] superficial femor al artery shows shows multifocal calcification and moderate stenosis. 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 At the level of the trifurcation and distally, the vessels are patent. Soft Tissues: Mild stranding in the left inguinal region consistent with recent surgery. Few small l ymph nodes are present. IMPRESSION: Status post left femoral-popliteal bypass graft. The graft is patent. No extravasation. Fluid seen along the course of the graft. Vessels are patent to the feet. Findings called to [facility] provider RADIATION DOSE DELIVERED: 529.64mGy.cm Total DLP DATA REPOSITORY: All CT scans at this facility are submitted to the National Radiology Data Registry (NRDR) Dose Index Registry (DIR) with the [employer] (ACR). RADIATION OPTIMIZATION: All CT scans at this facility use at least one of these dose optimization te chniques: automated exposure control; mA and/or kV adjustment per patient size (includes targeted exa ms where dose is matched to clinical indication); or iterative reconstruction.
[2024-09-20] MEDS: Normal Saline Flush 10 ML SYR IVP (08:47)
[2024-09-20 08:51] LABS: Abs Immature Grans 0.11 10^3/uL (0.0-0.06); Absolute Basophil Count 0.08 10^3/uL (0.0-0.2); Absolute Lymphocyte Count 1.42 10^3/uL (1.2-3.4); Basophils % 0.4 %; Eosinophils % 0.5 %; HCT 43.6 % (40.0-50.0); HGB 14.6 g/dL (13.5-17.5); Immature Grans % 0.6 %; Lymphocytes % 7.1 %; MCH 29.6 pg (27.0-33.0); MCHC 33.5 % (32.0-36.0); MCV 88 fL (80-95); MPV 9.8 fL (8.0-11.0); Monocytes % 5.2 %; Neutrophils % 86.2 %; Platelet Count 274 10^3/uL (130-400); RBC 4.93 10^6/uL (4.36-5.78); RDW 12.6 % (11.8-14.1); RDW-SD 41.1 fL; WBC 19.96 10^3/uL (4.4-10.8)
[2024-09-20 08:52] LABS: Absolute Monocyte Count 1.04 10^3/uL (0.1-0.8); Absolute Neutrophil Count 17.21 10^3/uL (1.2-6.7)
[2024-09-20 09:06] LABS: ALT 21 U/L (16-63); AST 8 U/L (15-37); Albumin 3.7 g/dL (3.4-5.0); Alkaline Phosphatase 127 U/L (46-116); Anion Gap 9.4 mmol/L (3-11); BUN 15 mg/dL (7-18); Bilirubin, Total 0.26 mg/dL (0.2-1.0); CO2 26.6 mmol/L (21.0-32.0); CREATININE 0.9 mg/dL (0.70-1.30); Calcium 9.3 mg/dL (8.5-10.1); Chloride 99 mmol/L (98-107); Estimated GFR 104.05 (mL/min/1.73m2); Glucose 259 mg/dL (74-106); Potassium 4.2 mmol/L (3.5-5.1); Sodium 135 mmol/L (136-145); Total Protein 7.8 g/dL (6.4-8.2)
[2024-09-20 09:13] LABS: PTT Activated 26.2 sec (23.6-32.8)
[2024-09-20] MEDS: Normal Saline - Diluent 50 ML VIAL IJ (09:30)
[2024-09-20] MEDS: Omnipaque 350 MG/ML 500 ML BTL-Imaging package 100 ML IJ (09:31)
[2024-09-20 10:21] LABS: Bilirubin Negative (Negative); Blood Negative (Negative); Clarity Clear (Clear); Glucose 500 mg/dL (Negative); Ketones 15 mg/dL (Negative); Leukocyte Esterase Negative (Negative); Nitrite Negative (Negative); Specific Gravity 1.025 (1.005-1.025); Urobilinogen 0.2 mg/dL (Up to 0.2)
[2024-09-20] MEDS: HYDROcodone 5/Acetaminophen 325 TAB PO (10:21)
[2024-09-20] MEDS: Ketorolac 15 MG/ML VIAL IVP (10:22)
[2024-09-20 10:24] VITALS: BP 132/103; PULSE 110; RESP 16; O2SAT 96
[2024-09-20 10:49] LABS: *AMPHETAMINES SCREEN URINE Negative (Negative); *BARBITURATES SCREEN URINE Negative (Negative); *BENZODIAZEPINES SCREEN URINE Negative (Negative); Cannabinoids THC Negative (Negative); Cocaine Screen,Urine Positive (Negative); METHADONE URINE SCREEN Negative (Negative); OPIATES URINE SCREEN Negative (Negative)
[2024-09-20 10:52] LABS: Tricyclic Antidepressants Positive (Negative)
== END 2024-09-20 10:57 | disposition home or self-care (01) ==
PROVIDERS: Emergency Provider Registered Nurse Emergency; PCP Student in an Organized Health Care Education/Training Program
DX: M79.662 Pain in left lower leg (principal); E11.40 Type 2 diabetes mellitus with diabetic neuropathy, unspecified; I10 Essential (primary) hypertension; E78.5 Hyperlipidemia, unspecified; I25.10 Atherosclerotic heart disease of native coronary artery without angina pectoris; F17.210 Nicotine dependence, cigarettes, uncomplicated; Z95.1 Presence of aortocoronary bypass graft; Z95.5 Presence of coronary angioplasty implant and graft; Z79.4 Long term (current) use of insulin; Z79.84 Long term (current) use of oral hypoglycemic drugs; Z79.85 Long-term (current) use of injectable non-insulin antidiabetic drugs
CPT/HCPCS: 36415; 73706; 80053; 80307; 96374; 99285; 81003; 85025; 85610; 85730; 99284; J1885

== ENCOUNTER 2024-09-26 08:43 | Emergency (ER) | payer OTHER, MEDICAID, SELFPAY ==
[2024-09-26] VITALS (26 sets, daily range): BP systolic 111–165; BP diastolic 63–97; PULSE 84–120; RESP 11–28; TEMP 37.2–38.2; O2SAT 93–98
--- NOTE | 2024-09-26 | DI.CT_ITS ---
Exam(s) CT LOWER EXTREMITY RT W EXAM: CT LOWER EXTREMITY RT W CLINICAL HISTORY: ordered per Radiologist, RECONSTRUCTION IMAGES. TECHNIQUE: Imaging Protocol: Axial computed tomography images with coronal and sagittal reformatted images were created and reviewed. CONTRAST MATERIAL: COMPARISON: CT CT LOWER EXTREMITY LT W from 09/26/2024 FINDINGS: Recons performed for visualization of both sides of the pelvis. See separate definitive dictation. IMPRESSION: As above. There should be no charge for this examination RADIATION DOSE DELIVERED: Total DLP DATA REPOSITORY: All CT scans at this facility are submitted to the National Radiology Data Registry (NRDR) Dose Index Registry (DIR) with the [employer] (ACR). RADIATION OPTIMIZATION: All CT scans at this facility use at least one of these dose optimization te chniques: automated exposure control; mA and/or kV adjustment per patient size (includes targeted exa ms where dose is matched to clinical indication); or iterative reconstruction.
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
--- NOTE | 2024-09-26 09:14 | DI.CT_ITS ---
Exam(s) CT LOWER EXTREMITY LT W EXAM: CT LOWER EXTREMITY LT W CLINICAL HISTORY: Left inguinal incision swelling. TECHNIQUE: Imaging Protocol: Axial computed tomography images with coronal and sagittal reformatted images were created and reviewed. CONTRAST MATERIAL: Intravenous: Omnipaque 350 Contrast volume:100 mL contrast route:IV - Oral: None COMPARISON: CT CT LOWER EXTREMITY LT CTA from 09/20/2024 FINDINGS: There is a bypass graft extending caudally from the left groin femoral artery. There is an abnormal fluid collection consistent with abscess in the groin and this abnormal fluid collection is continuou s caudally around the entire length of the graft, also including gas throughout length and this is co ntinuous beyond the field of view of this study which is at the knee level. There is very prominent infectious process surrounds the graft throughout its entire length and is quite large in diameter av eraging 4 cm. There does not appear to be extension of the infectious process into the left hemipelvis The graft itself appears to be probably patent IMPRESSION: Prominent abscess extending from the left groin operative site and along the entire length of the gra ft, down to and below the knee level. Vascular surgery consultation recommended. Report called by myself to ER physician 09/26/2024 10:35 a.m. RADIATION DOSE DELIVERED: 934.61mGy.cm Total DLP DATA REPOSITORY: All CT scans at this facility are submitted to the National Radiology Data Registry (NRDR) Dose Index Registry (DIR) with the [employer] (ACR). RADIATION OPTIMIZATION: All CT scans at this facility use at least one of these dose optimization te chniques: automated exposure control; mA and/or kV adjustment per patient size (includes targeted exa ms where dose is matched to clinical indication); or iterative reconstruction.
[2024-09-26] MEDS: Omnipaque 350 MG/ML 500 ML BTL-Imaging package 100 ML IJ (09:34)
[2024-09-26] MEDS: Normal Saline - Diluent 50 ML VIAL IJ (09:40)
[2024-09-26 09:44] LABS: Abs Immature Grans 0.28 10^3/uL (0.0-0.06); HCT 40.4 % (40.0-50.0); HGB 13.9 g/dL (13.5-17.5); MCH 28.9 pg (27.0-33.0); MCHC 34.4 % (32.0-36.0); MCV 84 fL (80-95); MPV 9.1 fL (8.0-11.0); Platelet Count 279 10^3/uL (130-400); RBC 4.81 10^6/uL (4.36-5.78); RDW 12.3 % (11.8-14.1); RDW-SD 37.7 fL
[2024-09-26 09:45] LABS: Lactate 3.6 mmol/L (0.6-1.4)
--- NOTE | 2024-09-26 09:45 | DI.RAD_ITS ---
Exam(s) XR CHEST 1V IN DI DEPT EXAM: XR CHEST 1V IN DI DEPT CLINICAL HISTORY: Sepsis. TECHNIQUE: 2D digital imaging was performed. COMPARISON: CR CHEST 2 VIEWS PA,LAT from 10/24/2016 FINDINGS: Single AP portable view. Sternotomy wires and evidence of previous CABG again noted. Heart size is upper normal. The mediastinum is not widened. Lungs are clear. No infiltrates nor obvious pleural effusions. No pulmonary edema. IMPRESSION: No acute pulmonary findings on this single AP portable view of the chest. Previous sternotomy/CABG. DATA REPOSITORY: RADIATION DOSE DELIVERED:
[2024-09-26 09:58] LABS: Anion Gap 13.4 mmol/L (3-11); BUN 10 mg/dL (7-18); CO2 24.6 mmol/L (21.0-32.0); Calcium 9.5 mg/dL (8.5-10.1); Chloride 88 mmol/L (98-107); Estimated GFR 91.69 (mL/min/1.73m2); Glucose 285 mg/dL (74-106); Potassium 3.5 mmol/L (3.5-5.1); Sodium 126 mmol/L (136-145)
--- NOTE | 2024-09-26 10:06 | NUR.NOTE ---
Nursing Note: Handoff to Bel HERNANDEZ at 1000. Pt just arriving back from CT scan. Meds primed and ready to hang, plan to insert second line. Dr. Helms speaking with about transfer and updated on patient condition.
[2024-09-26 10:29] LABS: Absolute Basophil Count 0.22 10^3/uL (0.0-0.2); Absolute Lymphocyte Count 1.08 10^3/uL (1.2-3.4); Absolute Monocyte Count 1.51 10^3/uL (0.1-0.8); Absolute Neutrophil Count 18.71 10^3/uL (1.2-6.7); Atypical Lymphocytes % 0 %; Bands % 8 %
[2024-09-26] MEDS: ACETAMINOPHEN 1,000 MG/100 ML BAG 400 MG IVPB (10:32)
[2024-09-26] MEDS: CEFEPIME 2 GM in Normal Saline 100 ML IVPB (10:33)
[2024-09-26] MEDS: Normal Saline 500 ML IV ×2 (10:33→11:35)
[2024-09-26] MEDS: VANCOMYCIN/WATER (PEG) 2 GM/400 ML BAG IV (11:34)
[2024-09-26 11:42] LABS: Bilirubin Negative (Negative); Blood Trace-intact (Negative); Clarity Clear (Clear); Glucose 500 mg/dL (Negative); Ketones 40 mg/dL (Negative); Leukocyte Esterase Negative (Negative); Nitrite Positive (Negative)
[2024-09-26 11:56] LABS: Lactate 2.5 mmol/L (0.6-1.4)
[2024-09-26 11:57] LABS: Bacteria Many HPF (Negative); C & S Indicated? Yes; Casts 0-2 Coarse Granular LPF (Negative); Crystals Negative HPF (Negative); Epithelial Cells Few HPF (Negative); Mucus Negative (Negative); Other Cells Negative (Negative)
--- NOTE | 2024-09-27 07:18 | ED.FU.B_ITS ---
Date of service: 09/27/24 Time of Service: 07:18 Follow Up Plan: Notified by lab of positive blood cultures, gram-positive cocci aerobic and anaerobic bottle sent 1, aerobic bottle set 2. On review of this chart the patient has been transferred to [facility] ICU under the care of vascular surgery, [facility] notified of this lab finding. Anita Knight MD
--- NOTE | 2024-09-27 07:18 | W.ED.FU ---
Date of service: 09/27/24 Time of Service: 07:18 Follow Up Plan: Notified by lab of positive blood cultures, gram-positive cocci aerobic and anaerobic bottle sent 1, aerobic bottle set 2. On review of this chart the patient has been transferred to [facility] ICU under the care of vascular surgery, [facility] notified of this lab finding. Anita Knight MD
--- NOTE | 2024-09-28 11:06 | NUR.NOTE ---
Faxed positive specimen results to [facility] from the Lab
== END 2024-09-26 12:46 | disposition short-term general hospital (02) ==
LOC: ER 08:48
PROVIDERS: Emergency Provider Emergency Medicine; PCP Student in an Organized Health Care Education/Training Program
DX: T81.41XA Infection following a procedure, superficial incisional surgical site, initial encounter (principal); T81.44XA Sepsis following a procedure, initial encounter; A41.9 Sepsis, unspecified organism; E11.9 Type 2 diabetes mellitus without complications; Z79.4 Long term (current) use of insulin; Z79.84 Long term (current) use of oral hypoglycemic drugs; Z79.85 Long-term (current) use of injectable non-insulin antidiabetic drugs; Z79.82 Long term (current) use of aspirin
CPT/HCPCS: 36415; 76882; 80048; 87040; 87077; 93971; 96365; 96368; 96375; 99285; 71045; 73701; 81003; 81015; 83605; 85025; 87086; 87186; J0131; J0692; J3372

== ENCOUNTER 2024-10-16 18:17 | Outpatient (REF) | payer OTHER, MEDICAID, SELFPAY ==
[2024-10-16 13:30] LABS: Abs Immature Grans 0.03 10^3/uL (0.0-0.06); Absolute Eosinophil Count 0.22 10^3/uL (0.0-0.7); Absolute Monocyte Count 0.75 10^3/uL (0.1-0.8); Absolute Neutrophil Count 7.06 10^3/uL (1.2-6.7); Basophils % 0.9 %; HCT 33.8 % (40.0-50.0); HGB 10.8 g/dL (13.5-17.5); Immature Grans % 0.3 %; Lymphocytes % 25.8 %; MCH 29.1 pg (27.0-33.0); MCV 91 fL (80-95); MPV 9.8 fL (8.0-11.0); Monocytes % 6.8 %; Neutrophils % 64.2 %; Platelet Count 512 10^3/uL (130-400); RBC 3.71 10^6/uL (4.36-5.78); RDW 14.2 % (11.8-14.1); RDW-SD 47.2 fL; WBC 10.99 10^3/uL (4.4-10.8)
[2024-10-16 13:32] LABS: Absolute Lymphocyte Count 2.84 10^3/uL (1.2-3.4)
[2024-10-16 13:40] LABS: ALT 22 U/L (16-63); AST 12 U/L (15-37); Alkaline Phosphatase 124 U/L (46-116); Anion Gap 11.6 mmol/L (3-11); BUN 17 mg/dL (7-18); CO2 26.4 mmol/L (21.0-32.0); CREATININE 0.9 mg/dL (0.70-1.30); Chloride 103 mmol/L (98-107); Creatine Kinase 39 U/L (39-308); Estimated GFR 104.05 (mL/min/1.73m2); Glucose 124 mg/dL (74-106); Potassium 4.3 mmol/L (3.5-5.1); Sodium 141 mmol/L (136-145); Total Protein 6.9 g/dL (6.4-8.2)
== END 2024-10-16 18:18 | disposition home or self-care (01) ==
LOC: LBN 18:17
PROVIDERS: PCP Student in an Organized Health Care Education/Training Program; Visit Provider Internal Medicine Infectious Disease
DX: T82.7XXA Infection and inflammatory reaction due to other cardiac and vascular devices, implants and grafts, initial encounter (principal)
CPT/HCPCS: 80053; 82550; 85025

== ENCOUNTER 2024-10-20 12:29 | Emergency (ER) | payer OTHER, MEDICAID, SELFPAY ==
[2024-10-20 12:33] VITALS: BP 141/84; PULSE 100; RESP 18; TEMP 36.6; O2SAT 97
--- OUTSIDE RECORDS SUMMARY | 2024-10-20 12:37 | XMS_ITS | Encounter Summary ---
Author Organization [facility] [place] [address] Care Team Providers Care Vacuum Metalizer Operator Name Role Phone Charles Romero Primary Care Provider + Encounter Details Date Type Department Care Team (Latest Contact Info) Description 10/19/2024 Travel Social History Tobacco Use Types Packs/Day Years Used Date Smoking Tobacco: Every Day Cigarettes 1 25 Started: 12/28/1986; Last attempted to quit: 12/28/2011 Smokeless Tobacco: Never Comments:Quit 09/2024 Alcohol Use Standard Drinks/Week Comments No 0 (1 standard drink = 0.6 oz pur e alcohol) [facility] Utilities Answer Date Recorded In the past 12 months has th e electric, gas, oil, or water company threatened to shut off services in your home? No 09/27/2024 Hunger Vital Sign Answer Date Recorded Within the past 12 months, y ou worried that your food would run out before you got the money to buy more. Never true 09/27/20 24 Within the past 12 months, t he food you bought just didn't last and you didn't have money to get more. Never true 09/27/2024 PRAPARE - Transportation Answer Date Re corded In the past 12 months, has l ack of transportation kept you from medical appointments or from getting medications? No 09/09 In the past 12 months, has l ack of transportation kept you from meetings, work, or from getting things needed for daily living? No 09/27/2024 Housing Stability Vital Sign Answer Carlos Enrique e Recorded In the last 12 months, was t here a time when you were not able to pay the mortgage or rent on time? No 09/27/2024 In the past 12 months, how m any times have you moved where you were living? 1 09/27/2024 At any time in the past 12 m ont, were you homeless or living in a usp (including now)? No 09/27/2024 IPV Inpatient Questions Answer Date Recorded Does Anyone Try to Keep You From Having Contact with Others or Doing Things Outside Your Home? no 09/27/2024 Feels Threatened by Someone no 09/09 Feels Unsafe at Home or Work/School no 09/27/2024 Physical Signs of Abuse Present no 09/27/2024 Sex and Gender Information Value Date Recorded Sex Assigned at Not on file Gender Identity Not on file Sexual Orientation Not on file documented as of this encounter Plan of Treatment Upcoming Encounters Date Type Department Care Team (Late st Contact Info) Description 10/23/2024 1:00 PM EST Appointment XRay at [address] [place] [phone] Isabela Hayward APRN [facility] [place] [address] 11/09/2024 1:30 PM EST Office [place] [phone] Isabela Hayward APRN [facility] [place] [address] 11/10/2024 10:00 AM EST Office Visit [place] [phone] Dai Whitman APRN 11/21/2024 2:15 PM EST Office [place] [phone] Dayanara Grover MD [facility] [place] [address] documented as of this encounter Visit Diagnoses Not on filedocumented in this encounter Care Teams Vacuum Metalizer Operator Relationship Specialty Start Date End Date Charles Romero [place] [address] PCP - General Internal Medicine 09/18/24 documented as of this encounter
--- OUTSIDE RECORDS SUMMARY | 2024-10-20 12:37 | XMS_ITS | Encounter Summary ---
Author Organization [facility] Address [facility] [place] [address] Care Team Providers Care Cook Box Filler Name Role Phone Charles Romero Primary Care Provider + Encounter Details Date Type Department Care Team (Late st Contact Info) Description 10/20/2024 External Results [place] [phone] Shannon Tyler, [employer] TE[employer] MRSA bacteremia Social History Tobacco Use Types Packs/Day Years Used Date Smoking Tobacco: Every Day Cigarettes 1 25 Started: 12/28/1986; Last attempted to quit: 12/28/2011 Smokeless Tobacco: Never Comments:Quit 09/2024 Alcohol Use Standard Drinks/Week Comments No 0 (1 standard drink = 0.6 oz pur e alcohol) [facility] Utilities Answer Date Recorded In the past 12 months has [employer], gas, oil, or water [employer] threatened to shut off services in your [...] living in a long-term (including now)? No 09/27/2024 IPV Inpatient Questions [...] 10/23/2024 1:00 PM EST Appointment XRay at [address] [place] [phone] Isabela Hayward [facility] [place] [address] 11/09/2024 1:30 PM EST Office [place] [phone] Isabela Hayward [facility] [place] [address] 11/10/2024 10:00 AM EST Office Visit [place] [phone] Dai Whitman APRN 11/21/2024 2:15 PM EST Office [place] [phone] Dayanara Grover MD [facility] [place] [address] documented as of this encounter Procedures Procedure Name Priority Date/Time Associated Diagnosis Comments CBC (WITH DIFF) Routine 10/16/2024 MRSA bacteremia CK Routine 10/16/2024 MRSA bacteremia COMPREHENSIVE METABOLIC PANEL Routine 10/16/2024 MRSA bacteremia documented in this encounter Results * (ABNORMAL) CBC (with Diff) (10/16/2024) WBC - External 10.99(H) [facility] RBC - External 3.71(L) [facility] Hemoglobin - External 10.8(L) [facility] Hematocrit - External 33.8(L) [facility] MCV - External 91 [facility] MCH - External 29.1 [facility] MCHC - External 32.0 [facility] RDWCV - External 14.2(H) [facility] Platelets - External 512(H) [facility] MPV - External 9.8 [facility] NRBC % - External 0.0 [facility] NRBC Abs - External 0.0 [facility] Neutrophils % - External 64.2 [facility] Lymphocytes % - External 25.8 [facility] Monocytes % - External 6.8 [facility] Eosinophils % - External 2.0 [facility] Basophils % - External 0.9 [facility] Immature Gran % - External 0.3 [facility] Neutr ABS (ANC) - External 7.06(H) [facility] Lymphocyte ABS - External 2.84 [facility] Monocyte ABS - External 0.75 [facility] Eosinophil ABS - External 0.22 [facility] Basophil ABS - External 0.10 [facility] Blood VENOUS BLOOD SPECIMEN / Unknown 10/16/2024 Amaya Hernandez MD HEMATOLOGY ORDERABLE S Performing Organization Address City/[facility]/ZIP Co de Phone Number [address] [place], [place] [address] [phone] * CK (10/16/2024) CK, Total - External 39 [facility] Blood VENOUS BLOOD SPECIMEN / Unknown 10/16/2024 Amaya Hernandez MD CHEMISTRY ORDERABLES Performing Organization Address City/[facility]/ZIP Co de Phone Number [address] [place], [place] [address] [phone] * (ABNORMAL) Comprehensive metabolic panel Non-fasting (10/16/2024) Glucose Lvl - External 124(H) [facility] Blood Urea Nitrogen - External 17 [facility] Creatinine - External 0.9 [facility] EGFR - External 104.05 [facility] Anion Gap - External 11.6(H) [facility] Sodium - External 141 [facility] Potassium - External 4.3 [facility] Chloride - External 103 [facility] CO2 - External 26.4 [facility] Calcium - External 9.0 [facility] Protein, Total - External 6.9 [facility] Albumin - External 3.0(L) [facility] Total Bilirubin - External 0.20 [facility] Alk Phos - External 124(H) [facility] AST (SGOT) - External 12 [facility] ALT (SGPT) - External 22 [facility] Blood VENOUS BLOOD SPECIMEN / Unknown 10/16/2024 Amaya Hernandez MD CHEMISTRY ORDERABLES Performing Organization Address City/[facility]/ZIP Co de Phone Number [address] [place], [place] [address] [phone] documented in this encounter Visit Diagnoses Diagnosis MRSA bacteremia Bacteremia documented in this encounter Care Teams Cook Box Filler Relationship Specialty Start Date End Date Charles Romero PA Carlene [place] [address] PCP - General Internal Medicine 09/18/24 documented as of this encounter
--- OUTSIDE RECORDS SUMMARY | 2024-10-20 12:37 | XMS_ITS | Encounter Summary ---
Author Organization [facility] [place] [address] Care Team Providers Care Finish Painter Name Role Phone Charles Romero Primary Care Provider + Encounter Details Date Type Department Care Team (Late st Contact Info) Description 10/13/2024 [place] [phone] Libia Nuno MA Social History Tobacco Use Types Packs/Day Years Used Date Smoking Tobacco: Every Day Cigarettes 1 25 Started: 12/28/1986; Last attempted to quit: 12/28/2011 Smokeless Tobacco: Never Alcohol Use Standard Drinks/Week Comments No 0 (1 standard drink = 0.6 oz pur e alcohol) [facility] Utilities Answer Date Recorded In the past 12 months has e [employer], gas, oil, or water [employer] threatened to shut off services in your [...] living in a residential (including now)? No 09/27/2024 IPV Inpatient Questions [...] encounter Miscellaneous Notes * Telephone Encounter - Libia Nuno MA - 10/13/2024 11:10 AM EST Images from the original note were not included. Accessed [facility] chart due to the following: Received the PA request below. Our team does not handle the Pas for this department. Messaged Vascular nurse pool as PCP is not one of ours. documented in this encounter Plan of Treatment Upcoming Encounters Date Type Department Care Team (Late st Contact Info) Description 10/23/2024 1:00 PM EST Appointment XRay at [address] [place] [phone] Isabela Hayward APRN [facility] [place] [address] 11/09/2024 1:30 PM EST Office Visit Infectious Disease at [facility] [place] [phone] Isabela Hayward, [facility] [place] [address] 11/10/2024 10:00 AM EST Office Visit [place] [phone] Dai Whitman APRN 11/21/2024 2:15 PM EST Office [place] [phone] Dayanara Grover MD [facility] [place] [address] documented as of this encounter Visit Diagnoses Not on filedocumented in this encounter Care Teams Finish Painter Relationship Specialty Start Date End Date Charles Romero PA [facility] [place] [address] PCP - General Internal Medicine 09/18/24 documented as of this encounter
--- OUTSIDE RECORDS SUMMARY | 2024-10-20 12:37 | XMS_ITS | Encounter Summary ---
Author Organization [facility] Address [facility] [place] [address] Care Team Providers Care Tinning Equipment Tender Name Role Phone Charles Romero Primary Care Provider + Encounter Details Date Type Department Care Team (Late st Contact Info) Description 10/20/2024 Telephone [place] [phone] Isabela Hayward APRN [facility] [place] [address] Social History Tobacco Use Types Packs/Day Years Used Date Smoking Tobacco: Every Day Cigarettes 1 25 Started: 12/28/1986; Last attempted to quit: 12/28/2011 Smokeless Tobacco: Never Comments:Quit 09/2024 Alcohol Use Standard Drinks/Week Comments No 0 (1 standard drink = 0.6 oz pur e alcohol) [facility] Utilities Answer Date Recorded In the past 12 months has [employer] electric, gas, oil, or water company threatened [...] any time in the past 12 m [facility], were you homeless or living in a senior care (including now)? No 09/27/2024 IPV Inpatient Questions [...] encounter Miscellaneous Notes * Telephone Encounter - Omari Weaversa Chávez - 10/20/2024 10:23 AM EST CLINIC PHONE COVERAGE: Reason for Call: Change appointment date from 11/09/24 to 11/10/24 PCP: JUSTIN Roberson / Treating provider: Isabela Hayward APRN Message: Cony called and stated patient has another appointment on 11/10/24 at 10:00 am. Mom hoped that this appointment on 11/09/24 can be changed to the 3rd, after his 10:00 am appointment. Mom stated takes 2 hours just to get to [facility]. Caller Name (If other than patient): Cony Patient Callback number: [phone]. Best time you are available: Any Route Per Clinic Coverage Page documented in this encounter Plan of Treatment Upcoming Encounters Date Type Department Care Team (Late st Contact Info) Description 10/23/2024 1:00 PM EST Appointment XRay at [address] [place] [address] Isabela Hayward, [facility] [place] [address] 11/09/2024 1:30 PM EST Office Visit Infectious Disease at [place] [phone] Isabela Hayward, [facility] [place] [address] 11/10/2024 10:00 AM EST Office Visit Vascular Surgery at [place] [phone] Dai Whitman APRN 11/21/2024 2:15 PM EST Office [place] [phone] Dayanara Grover MD [facility] [place] [address] documented as of this encounter Visit Diagnoses Not on filedocumented in this encounter Care Teams Tinning Equipment Tender Relationship Specialty Start Date End Date Charles Romero PA [facility] [place] [address] PCP - General Internal Medicine 09/18/24 documented as of this encounter
--- OUTSIDE RECORDS SUMMARY | 2024-10-20 12:37 | XMS_ITS | Encounter Summary ---
Author Organization [facility] Address [facility] [place] [address] Care Team Providers Care Senior Javascript Developer Name Role Phone Charles Romero Primary Care Provider + Encounter Details Date Type Department Care Team (Late st Contact Info) Description 10/19/2024 11:50 AM EST Office Visit [place] [address] Isabela Hayward APRN [facility] [place] [address] Bacteremia; Vascular graft infection, subsequent encounter; MRSA infection (methicillin-resistant Staphylococcus aureus); PICC line infiltration, initial encounter; 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 No 09/27/2024 IPV Inpatient Questions [...] as of this encounter Progress Notes * Isabela Hayward, POSTAL MAIL CARRIER - 10/19/2024 11:50 AM ESTSummary: ID OPAT interim visit ..INFECTIOUS DISEASE CLINIC - OUTPATIENT FOLLOW UP Chief Complaint: Bacteremia, Endovascular Graft Infection Microorganism(s): MRSA Antimicrobial Therapy: Daptomycin 700 mg IV daily History of Present Illness: Lux Shahmonika Winter is a 49 y.o. male current smoker, with PMH of coronary artery disease s/p CABG, T2DM, hypertension dyslipidemia, and symptomatic peripheral arterial disease s/p L iliofemoral endarterectomy with below the knee popliteal artery bypass with PTFE insertion 08/01/2024, who was admitted 09/26 - 10/10/2024 with L-sided groin pain and found to have MRSA bacteremia and endovascular graft infection. Per chart, patient initially went to OSH with L groin pain. Lab work notable for WBC = 21, lactic acid = 3.6. CT scan done showed an abscess from the left groin operative site to the entire left graft down by the knee and patient was transferred to for a higher level of care. Initially, patient was treated with broad-spectrum antibiotic therapy (IV Vancomycin plus Cefepime). He was brought to the OR on the day of admission where he underwent explantation of the infected bypass graft. Per the intraoperative note, there was significant purulence under pressure surrounding the entire bypass graft. Of note, approximately 1 cm of the stump of the PTFE cuff was left in place. Blood cultures drawn on admission grew MRSA. ID was consulted for antibiotic guidance and management and recommended continuing with Vancomycin as monotherapy with pharmacy assisted dosing. Mr. Dixon returned to the OR 09/28/2024 where he underwent excisional debridement, washout of L groin, sartorius flap, L great saphenous vein harvest, resection of prior femoral patch and PTFE graft hoods (fully explanted). Patient RTOR 09/29 and 10/02/2024 for continued surgical washouts as part of his ongoing management. ECHO done 10/04/2024 showed no obvious vegetation, however did show segmental wall motion abnormalities. HELEN deferred as patient planned to have a minimum 6- week course of antimicrobial therapy. Near discharge, ID recommended switching to Daptomycin for ease of dosing at home. Patient had PICCline placed TONIA 10/06/2024 and he was discharged via OPAT program. Patient presents today, onsite, for his ID interim visit to evaluate progress and response to long-term IV antimicrobial therapy. ROS: Mr. Dixon states he is feeling, pretty good, since discharge . He came onsite to clinic today because, the PICC line was broken, it came apart in my sleep. He reports it had been working well, however, today, when he woke up, he noticed that the tubing was undone, cap was off and clamp undone. Denies bleeding but knew that PICC was compromised. After evaluation by OPAT RN, decision made to pull PICC line. Patient states he is eating well and his appetite is, very good. He also states he is drinking plenty of fluids. Patient reports the wound VAC L groin is working well and is still pulling out secretions, but less than when it was first put on. Patient states he was seen by Vascular Surgery today for follow-upand reports that they were pleased with his progress and appearance of the wound. He states he willsee them again next week. In addition, patient: Denies fevers, chills, night sweats, headache, dizziness Denies chest pain, palpitations Denies shortness of breath, cough Denies abdominal pain, nausea/vomiting, constipation/diarrhea Denies hematuria, dysuria Denies rash Denies myalgias, muscle cramping Medications: Current Outpatient Medications Medication Sig Note Dispense Refill insulin lispro (humaLOG KwikPen) 100 unit/mL Insulin Pen Inject SQ 3 times daily before meals: 8-16unit meal dose plus sliding scale 1:15>150 - see insulin chart for instructions Indications: type 2 diabetes mellitus 15 mL 0 Lantus Solostar U-100 Insulin 100 unit/mL (3 mL) pen Inject 25 Units subcutaneously 2 times daily. Indications: type 2 diabetes mellitus 15 mL 1 DAPTOmycin (Cubicin) 350 mg injection solution Inject 700 mg into the vein daily for 32 days. EOT 11/10/24 64 each 0 sodium chloride 0.9 %, flush, (BD PosiFlush Normal Saline 0.9) Syringe Inject 10 mLs into the vein as needed (For Line Patency - See Instructions). FLUSH PROTOCOL WITH MEDICATIONS (SASH): Before med infusion: flush with NS 10 mL. After med infusion: flush with NS 10 mL then heparin (10 units/mL) 3 mL. Additional Lumens: flush twice daily & PRN with NS 10 mL and then heparin (10 units/mL) 3 mL. // WITH BLOOD WITHDRAWAL: Before blood draw: flush with NS 10 mL. After blood draw: flush with NS 20 mL and then heparin (10 units/mL) 3 mL. // FLUSH WITHOUT MEDICATION: Twice Daily & PRN: flushwith NS 10 mL and then heparin (10 units/mL) 3 mL 100 each PRN heparin flush, porcine, 10 unit/mL Solution Inject 3 mLs into the vein as needed (For Line Patency - See Instructions). FLUSH PROTOCOL WITH MEDICATIONS (SASH): Before med infusion: flush with NS 10 mL. After med infusion: flush with NS 10 mL then heparin (10 units/mL) 3 mL. Additional Lumens: flushtwice daily & PRN with NS 10 mL and then heparin (10 units/mL) 3 mL. // WITH BLOOD WITHDRAWAL: B efore blood draw: flush with NS 10 mL. After blood draw: flush with NS 20 mL and then heparin (10 units/mL) 3 mL. // FLUSH WITHOUT MEDICATION: Twice Daily & PRN: flush with NS 10 mL and then heparin (10 units/mL) 3 mL 100 each PRN alteplase (Cathflo) 2 mg Recon Soln Instill reconstituted alteplase (Cathflo) 2 mg per instillation(based on volume of lumen). May repeat x1 per occlusion 1 each PRN methylphenidate (Ritalin) 20 mg tablet Take 20 mg by mouth 3 times daily. amLODIPine (Norvasc) 5 mg tablet Take 5 mg by mouth daily. lisinopriL (Zestril) 40 mg tablet Take 40 mg by mouth daily. rOPINIRole (Requip) 0.25 mg tablet Take 0.5 mg by mouth every evening. oxyCODONE (Roxicodone) 5 mg tablet Take 1 tablet by mouth every 4 hours as needed for Pain (severe pain refractory to Tyelnol). (Patient not taking: Reported on 08/28/2024) 10 tablet 0 senna-docusate (Pericolace) 8.6-50 mg Tablet Take 2 tablets by mouth 2 times daily. 60 tablet 11 freestyle lite strips 1 strip by Other route 3 times daily. Use as instructed Indications: [id number] each 1 FreeStyle Lancets 28 gauge Misc 1 each by Other route 3 times daily. Indications: diabetes 100 each0 metFORMIN (Glucophage) 1,000 mg tablet Take 1 tablet by mouth 2 times daily (with meals). Indications: type 2 diabetes mellitus 180 tablet 1 insulin needles, disposable, 32 gauge x [...] 50 Units subcutaneously nightly. 3 mL 11 losartan (Cozaar) 50 mg tablet Take 1 tablet by mouth daily. 90 tablet 3 metoprolol succinate XL (Toprol-XL) 25 mg ER 24 hr tablet Take 1 tablet by mouth daily. 30 tablet 12 dulaglutide (Trulicity) 1.5 mg/0.5 mL Pen Injector Inject 0.5 mLs subcutaneously once a week. Indications: type 2 diabetes mellitus (Patient not taking: Reported on 10/19/2024) 2 mL 11 empagliflozin (Jardiance) 25 mg tablet Take 1 tablet by mouth daily. (Patient not taking: Reported on 10/19/2024) 30 tablet 0 aspirin EC 81 mg EC (DR) tablet Take 1 tablet by mouth daily. 30 tablet 3 omeprazole 20 mg Tablet,Rapid Dissolve, DR Take 40 mg by mouth Daily at Noon. nitroGLYcerin (NITROSTAT) 0.[address] 1 tablet under the tongue daily as needed for Chest pain. (Patient not taking: Reported on 08/28/2024) 25 tablet 1 Lancets (FREESTYLE LANCETS) Misc [...] tablet Take 225 mg by mouth daily. 05/28/2024: Unable to obtain this medication for a few weeks does report taking it daily when he can afford it. Allergies: No Known Allergies Past Medical History: Diagnosis Date Depression Hyperlipidemia Hypertension Narcolepsy Obesity Physical Exam: General: Patient seen in ID clinic exam room in no distress. Alert and oriented, pleasant and cooperative HEENT: Normocephalic, atraumatic. PERRLA, EOMs intact, Sclerae anicteric, non- hemorrhagic. No nasalsecretions. Oropharynx clear, mucous membranes moist, many missing teeth Neck: Supple, no decreased ROM, no thyromegaly, no lymphadenopathy Cardiovascular: RRR, S1 S2, no extra sounds Pulmonary: Non-labored respirations. No wheezing, rhonchi, or crackles Abdomen: BS + 4 quadrants, Non-distended, soft, non-tender Ext: Moves all extremities well. Wound VAC in place L groin to suction Skin: No rash seen Neuro: Alert and oriented to person, place, time, and situation. No facial droop. No dysarthria Psych: Normal affect Labs: 10/10/2024: WBC = 11.57 w/ANC = 7.08, Hb = 11.1, Plts = 823 BUN = 12, creatinine = 0.57 ALT/AST - not done CPK = 32 unit/L Lab Results Component Value Date WBC 11.57 (H) 10/10/2024 HGB 11.1 (L) 10/10/2024 HCT 33.5 (L) 10/10/2024 MCV 89.3 10/10/2024 PLATELET 823 (H) 10/10/2024 Lab Results Component Value Date NA 138 10/10/2024 NA 137 06/02/2024 K 4.1 10/10/2024 K 4.0 06/02/2024 CL 103 10/10/2024 CL 102 06/02/2024 CO2 25 10/10/2024 CO2 23 06/02/2024 BUN 19 10/10/2024 BUN 7 (L) 06/02/2024 CREATININE 0.57 (L) 10/10/2024 CREATININE 0.52 (L) 06/02/2024 GLUCOSE 125 10/10/2024 GLUCOSE 165 06/02/2024 GLUCFASTING 170 (H) 08/22/2013 CALCIUM 9.4 10/10/2024 CALCIUM 9.5 06/02/2024 ESTGFR 119 10/10/2024 ESTGFR 123 06/02/2024 Lab Results Component Value Date ALT 14 09/26/2024 AST 16 09/26/2024 ALKPHOS 160 (H) 09/26/2024 BILITOT 0.4 09/26/2024 BILIDIR 0.2 09/26/2024 ALBUMIN 3.1 (L) 09/26/2024 PROT 7.0 09/26/2024 Microbiology: Reviewed Imaging: Reviewed Assessment: From an ID perspective, the patient is doing well AEB no s/s infection (F/C, night sweats, headaches, dizziness, poor appetite, malaise, etc). His WBC = 11.57 with ANC = 7.08 this week and that is ofundetermined significance. Unfortunately, his PICC line needed removal today as the tubing came apart and was open to air and clamp was undone x several hours. He is scheduled for a new PICC line in Vascular Access on Wednesday10/23/2024. We will bridge him with TMP/SMX DS 2 PO bid for 5 days, then continue with IV Daptomycin once new PICC is in. In addition, patient is tolerating long-term IV antimicrobial therapy well AEB no SEs and stable lab work. CPK = 32 unit/L this week. Patient has an EOT appointment scheduled with this provider, 11/09/2024. Projected end date for IV antibiotic therapy is 11/10/2024. Plan: D/C PICC line - done by OPAT RN Appointment in IR 10/23/2024, for new PICC line HOLD Daptomycin for now Bridge with TMP/SMX 2 tabs PO bid. Start today Restart IV antimicrobial therapy with Daptomycin 700 mg IV daily on 10/24/2024 Continue weekly lab work: CBC w/diff, CMP, and CPK EOT visit is scheduled Patient's ID Attending, Dr. Hernandez, apprised of above I spent a total of 30 minutes with the patient, including my review of medical records prior to thevisit, [id number] evaluation and counseling, clinical decision making, coordination of care and documentation. Isabela Hayward APRN, Infectious Disease 10/19/2024 11:45 AM documented in this encounter Plan of Treatment Upcoming Encounters Date Type Department Care Team (Late st Contact Info) Description 10/23/2024 1:00 PM EST Appointment XRay at [address] [place] [address] Isabela Hayward APRN [facility] [place] [address] 11/09/2024 1:30 PM EST Office Visit Infectious Disease at [facility] [place] [place] [address] Isabela Hayward APRN [facility] [place] [address] 11/10/2024 10:00 AM EST Office Visit Vascular Surgery at [place] [phone] Dai Whitman APRN 11/21/2024 2:15 PM EST Office [place] [phone] Dayanara Grover MD [facility] [place] [address] documented as of this encounter Visit Diagnoses Diagnosis Bacteremia Vascular graft infection, subsequent encounter MRSA infection (methicillin-resistant Staphylococcus aureus) Methicillin resistant Staphylococcus aureus in conditions classified elsewhere and of unspecified site PICC line infiltration, initial encounter 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
--- OUTSIDE RECORDS SUMMARY | 2024-10-20 12:37 | XMS_ITS | Encounter Summary ---
Author Organization [facility] [place] [address] Care Team Providers Care Footwear Machinery Instructor Name Role Phone Charles Romero Primary Care Provider + Encounter Details Date Type Department Care Team (Late st Contact Info) Description 10/11/2024 Telephone [place] [phone] Vangie Kumar, RN Social History Tobacco Use Types Packs/Day Years Used Date Smoking Tobacco: Every Day Cigarettes 1 25 Started: 12/28/1986; Last attempted to quit: 12/28/2011 Smokeless Tobacco: Never Alcohol Use Standard Drinks/Week Comments No 0 (1 standard drink = 0.6 oz pur e alcohol) [facility] Utilities Answer Date Recorded In the past 12 months has e [employer], gas, oil, or water [employer] threatened to shut off services in your home? No 09/27/2024 Hunger Vital Sign Answer Date Recorded Within the past 12 months, y ou worried that your food would run out before you got the money to buy more. Never true 09/27/20 Within the past 12 months, t he [...] any time in the past [address] [place], were you homeless or living in a assisted (including now)? No 09/27/2024 IPV Inpatient Questions [...] encounter Miscellaneous Notes * Telephone Encounter - Vangie Kumar RN - 10/11/2024 2:38 PM EST Career Services Assistant took a phone call from this patient's mom as she was calling to clarify discharge medications for her son. Career Services Assistant reached out to the inpatient HOME THEATER EXPERT's and asked for some clarification. Career Services Assistant then passed on to the mom that he should not take jardiance until the wounds are healed. He should not take trulicity until someone can adjust his insulin and he sees either his PCP or endo. She verbalized an understanding. They know to reach out if any further problems. They have appointment with PCP on 10/25/24. documented in this encounter Plan of Treatment Upcoming Encounters Date Type Department Care Team (Late st Contact Info) Description 10/23/2024 1:00 PM EST Appointment XRay at [address] [place] [address] Isabela Hayward, P[employer]MENT [employer] [facility] [place] [address] 11/09/2024 1:30 PM EST Office [place] [phone] Isabela Hayward, [employer] [place] [address] 11/10/2024 10:00 AM EST Office [place] [phone] Dai [place] APRN 11/21/2024 2:15 PM EST Office Visit Endocrinology at [place] [phone] Dayanara Grover MD [facility] [place] [address] documented as of this encounter Visit Diagnoses Not on filedocumented in this encounter Care Teams Footwear Machinery Instructor Relationship Specialty Start Date End Date Charles Romero PA [facility] [place] [address] PCP - General Internal Medicine 09/18/24 documented as of this encounter
--- OUTSIDE RECORDS SUMMARY | 2024-10-20 12:37 | XMS_ITS | Clinical Summary ---
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 03/07/2024 Active losartan (Cozaar) 50 mg tablet Take 1 tablet by mouth daily. 90 tablet 3 06/03/2024 Active metoprolol succinate XL (Toprol-XL) 25 mg ER 24 hr tablet Take 1 tablet by mouth daily. 30 tablet 12 06/03/2024 Active dulaglutide (Trulicity) 1.5 mg/0.5 mL Pen InjectorIndicati ons:type 2 diabetes mellitus Inject 0.5 mLs subcutaneously once a week. Indications: type 2 diabetes mellitus 2 mL 11 06/02/2024 Active Additional Information Patient not taking.Reported on 10/19/2024 empagliflozin (Jardiance) 25 mg tablet Take 1 tablet by mouth daily. 30 tablet 06/02/2024 Active Additional Information Patient not taking.Reported on 10/19/2024 aspirin EC 81 mg EC (DR) tablet [...] 2 diabetes mellitus 180 tablet 07/21/2024 Active insulin needles, disposable, 32 gauge [...] Units subcutaneously nightly. 3 mL 07/21/2024 Active oxyCODONE (Roxicodone) 5 mg tablet Take 1 tablet by mouth every 4 hours as needed for Pain (severe pain refractory to Tyelnol). 10 tablet 08/03/2024 Active Additional Information Patient not taking.Reported on 08/28/2024 senna-docusate (Pericolace) 8.6-50 mg Tablet Take 2 tablets by mouth 2 times daily. 60 tablet 11 08/03/2024 Active methylphenidate (Ritalin) 20 mg tablet Take 20 mg by mouth 3 times daily. Active amLODIPine (Norvasc) 5 mg tablet Take 5 mg by mouth daily. Active lisinopriL (Zestril) 40 mg tablet Take 40 mg by mouth daily. Active rOPINIRole (Requip) 0.25 mg tablet Take 0.5 mg by mouth every evening. Active DAPTOmycin (Cubicin) 350 mg injection solution Inject 700 mg into the vein daily for 32 days. EOT 11/10/24 64 each 10/09/2024 11/10/2024 Active sodium chloride 0.9 %, flush, (BD PosiFlush Normal Saline 0.9) Syringe Inject 10 mLs into the vein as needed (For Line Patency - See Instructions). FLUSH PROTOCOL WITH MEDICATIONS ([facility]): Before med infusion: flush with NS 10 [...] heparin (10 units/mL) 3 mL 100 each 10/09/2024 Active heparin flush, porcine, 10 unit/mL Solution Inject 3 mLs into the vein as needed (For Line Patency - See Instructions). FLUSH PROTOCOL WITH MEDICATIONS ([facility]): Before med infusion: flush with NS 10 [...] heparin (10 units/mL) 3 mL 100 each 10/09/2024 Active alteplase (Cathflo) 2 mg Recon Soln Instill reconstituted alteplase (Cathflo) 2 mg per instillation (based on volume of lumen). May repeat x1 per occlusion 1 each 10/09/2024 Active insulin lispro (humaLOG KwikPen) 100 unit/mL Insulin PenIndications:t ype 2 diabetes mellitus Inject SQ 3 times daily before meals: 8-16 unit meal dose plus sliding scale 1:15>150 - see insulin chart for instructions Indications: type 2 diabetes mellitus 15 mL 10/10/2024 Active Lantus Solostar U-100 Insulin 100 unit/mL (3 mL) penIndications:t ype 2 diabetes mellitus Inject 25 Units subcutaneously 2 times daily. Indications: type 2 diabetes mellitus 15 mL 1 10/10/2024 Active sulfamethoxazole -trimethoprim DS (Bactrim DS) 800-160 mg tablet Take 2 tablets by mouth 2 times daily for 4 days. 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 Vascular graft infection, initial encounter 09/08 PAD (peripheral artery disease) 08/01/2024 Peripheral artery [...] up with PCP or Dr Bird in [place] Obesity 08/22/2013 Overview (08/22/2013): Weight is 130.5 Kg on 08/22/13 NSTEMI (non-ST elevated myocardial infarction) 1 Overview (08/21/2013): , NSTEMI, C 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 (SVG to PDA closed 08/27 13) 01/06/2012 Overview (08/22/2013): NSTEMI 12-29-2011 Cath - LAD, PDA and Distal Circ Disease CABG 01-04-2012 (MARTINEZ-LAD, SVG-PDA) Cardiac Cath 08/21/13: [patent MARTINEZ to LAD, occlusion of SVG to RPDA and occlusion of samish RCA. LVEDP 21. PCI of mid and distal LCX (Xience) Echocardiogram 08/21/13: LVEF 65% HTN (hypertension) 12/29/2011 Hyperlipidemia 12/29/2011 Depression 12/29/2011 Narcolepsy 12/29/2011 Encounters Date Type Department Care Team Description 10/20/2024 External Results [place] [phone] Shannon Tyler LNA MRSA bacteremia 10/20/2024 Telephone [place] [phone] Isabela Hayward APRN 10/19/2024 11:50 AM EST Office [place] [phone] Isabela Hayward APRN Bacteremia; Vascular graft infection, subsequent encounter; MRSA infection (methicillin-resistan t Staphylococcus aureus); PICC line infiltration, initial encounter; nursing home current use of antibiotics 10/19/2024 11:30 AM EST Clinical Support [place] [phone] Vascular graft infection, initial encounter [T82.7XXA] 10/19/2024 10:00 AM EST Office [place] [phone] Dai Whitman APRN Critical limb ischemia of left lower extremity; Infection of vascular bypass graft, sequela 10/19/2024 Orders [place] [phone] Isabela Hayward APRN Vascular graft infection, initial encounter 10/19/2024 Travel 10/13/2024 [place] [address] Libia Nuno MA 10/11/2024 Telephone [place] [address] Vangie Kumar RN 10/07/2024 Notes [place] [address] Amaya Hernandez MD 10/04/2024 3:38 PM EST - 10/04/2024 5:32 PM EST Surgery Main Operating Room [place] [phone] Kimberli Dickson MD DEBRIDEMENT SKIN AND SUBCU, LOWER EXTREMITY (WRVU 1.01) 10/04/2024 3:08 PM EST Anesthesia Event Main Operating Room [place] [phone] Isabel Longoria MD Chaimberg, Kathleen H, MD 10/04/2024 9:15 AM EST Anesthesia Event Main Operating Room [place] [phone] Michelle Crawford CRNA 10/02/2024 1:24 PM EST Anesthesia Event Main Operating Room [place] [phone] Kodi Richardson MD 10/02/2024 1:14 PM EST - 10/02/2024 2:48 PM EST Surgery [place] [phone] Hermila Mccormick MD DEBRIDEMENT SKIN, SUBCU, MUSCLE, LOWER EXTREMITY (WRVU 2.7) 09/29/2024 11:59 PM EST Anesthesia [place] [address] Penny Mathias MD 09/29/2024 2:11 PM EST - 09/29/2024 3:47 PM EST Surgery [place] [address] Anabel Finney MD @[facility] W\O SURGICAL REPAIR, FEMORAL ARTERY - JENNIFER (WRVU 7.5) 09/29/2024 2:07 PM EST Anesthesia [place] [address] Penny Mathias MD Maliszewski, Matthew S, CRNA 09/28/2024 11:29 AM EST Anesthesia [place] [address] Isabel Longoria MD 09/28/2024 10:25 AM EST - 09/28/2024 12:15 PM EST Surgery Main Operating Room [place] [phone] Hayley Torres MD REV. FEM. ANASTOMOSIS OF SYN. BYPASS GRAFT USING NONAUTOGENOUS PATCH ANGIOPLASTY-JENNIFER (WRVU 23.15) 09/27/2024 3:47 PM EST Anesthesia Event [place] [address] Joaquina Amor MD Hartmann, Patrick R, MD 09/27/2024 3:10 PM EST - 09/27/2024 5:00 PM EST Surgery Main Operating Room [place] [phone] Hayley Torres MD DEBRIDEMENT SKIN AND SUBCU, LOWER EXTREMITY (WRVU 1.01) 09/26/2024 3:53 PM EST Anesthesia Event Main Operating Room [place] [phone] Marco Santana MD Peck, Meredith T, DO 09/26/2024 3:22 PM EST - 09/26/2024 6:45 PM EST Surgery [place] [address] Hayley Torres MD EXCISION OF INFECTED GRAFT FROM LOWER EXTREMITY (WRVU 9.53) 09/26/2024 2:08 PM EST - 10/10/2024 5:11 PM EST Hospital Encounter Surgical Unit Level 4 Wing D at [place] [address] Kimberli Dickson MD Beach, Jocelyn M, MD Vascular graft infection, initial encounter; PAD (peripheral artery disease); Critical limb ischemia of left lower extremity; MRSA bacteremia; QT prolongation Discharge Disposition: Home with VNA 09/26/2024 1:55 PM EST Ancillary Procedure Radiology Library at [facility] [address] [place] [address] Kimberli Dickson MD 09/26/2024 10:25 AM EST Ancillary Procedure Radiology Library at [facility] [address] [place] [address] Kimberli Dickson MD 09/26/2024 Telephone Vascular Surgery at [place] [address] Kimberli Dickson MD 09/26/2024 Notes Only Vascular Surgery at [place] [address] Kimberli Dickson MD 09/25/2024 Telephone Vascular Surgery at [place] [address] Fallon Lemus, RN 09/21/2024 Telephone Vascular Surgery at [place] [address] Lovely Huitron, RN 09/20/2024 Ancillary Procedure Radiology Library at [facility] [address] [phone] Kimberli Dickson MD 09/18/2024 11:20 AM EST Office Visit Cardiology at [place] [address] Josh Olivarez MD Coronary artery disease, unspecified vessel or lesion type, unspecified whether angina present, unspecified whether samish or transplanted heart 09/18/2024 Travel 09/06/2024 Notes [place] [address] Fallon Lemus RN 09/06/2024 Telephone [place] [address] Fallon Lemus RN 08/29/2024 Orders [place] [address] Viivana Resendiz APRN Heart failure with mildly reduced ejection fraction (HFmrEF); Cardiomyopathy, unspecified type; Hx of CABG 08/28/2024 2:00 PM EDT Office [place] [address] Kimberli Dickson MD PAD (peripheral artery disease) 08/28/2024 1:00 PM EDT Tech [place] [address] Erick Jama [place] Critical limb ischemia of left lower extremity 08/28/2024 Travel 08/28/2024 [place] [address] Hermila White APRN Critical limb ischemia of left lower extremity 08/28/2024 Orders [place] [address] Vibha Benson APRN Critical limb ischemia of left lower extremity 08/17/2024 3:30 PM EDT Office [place] [address] Viviana Resendiz APRN PAD (peripheral artery disease); Encounter for post surgical wound check; Status post amputation of lesser toe of left foot 08/17/2024 Travel 08/01/2024 7:30 AM EDT - 08/01/2024 1:43 PM EDT Surgery [place] [address] Lisette Maldonado MD @BYPASS GRAFT, FEM-ANT TIBIAL, -POST TIBIAL, -PERONEAL, -DP W\ SYNTHETIC CONDUIT (WRVU 23.66) 08/01/2024 7:28 AM EDT Anesthesia Event Main Operating Room [place] [phone] Cornelius Church MD Maliszewski, Matthew S, CHERYL 08/01/2024 5:32 AM EDT - 08/03/2024 4:45 PM EDT Hospital Encounter Surgical Unit Level [place] [address] Lisette Maldonado MD Critical limb ischemia of left lower extremity; PAD (peripheral artery disease); Peripheral artery disease Discharge Disposition: Home with VNA 07/27/2024 Telephone [place] [address] Lisette Maldonado MD Peer To Peer (Per 5 day protocol please be advised that prior auth is still pending review with the patient's insurance company. Will continue to update as more information returns) 07/24/2024 Telephone Vascular Surgery at [place] [phone] Fallon Lemus RN 07/14/2024 6:07 PM EDT - 07/21/2024 7:15 PM EDT Hospital Encounter Surgical Unit Level [place] [phone] Thony Garcia MD Cellulitis of foot, left; Peripheral [...] Tobacco: Never Tobacco Cessation:Ready to Q uit: Not Asked; Counseling Given: Not Answered Comments:Quit 09/2024 Alcohol Use Standard Drinks/Week Comments No 0 (1 standard drink = 0.6 oz pur e alcohol) [facility] Utilities Answer Date Recorded In [...] any time in the past 12 m [facility], were you homeless or living in a senior care (including now)? No 09/27/2024 DH IPV Inpatient Questions Answer Date Recorded [...] Sign Reading Time Taken Comments Blood Pressure 115/79 10/10/2024 4:24 PM EST Pulse 92 10/07/2024 3:25 PM EST Temperature 36.6 ??C (97.9 ??F) 10/10/2024 4:24 PM ES T Respiratory Rate 18 10/10/2024 4:24 PM EST Oxygen Saturation 93% 10/10/2024 4:24 PM EST Inhaled Oxygen Concentration - - Weight 103.4 kg (228 lb) 10/19/2024 9:48 AM EST Height 179.1 cm (5' 10.5) 10/19/2024 9:48 AM ES T Body Mass Index 32.25 10/19/2024 9:48 AM EST Plan of Treatment Upcoming Encounters Date Type Department Care Team (Late st Contact Info) Description 10/23/2024 1:00 PM EST Appointment XRay at [address] [place] [phone] Isabela Hayward, UNDERGROUND UTILITY LOCATOR [facility] [place] [address] 11/09/2024 1:30 PM EST Office [place] [phone] Isabela Hayward, [facility] [place] [address] 11/10/2024 10:00 AM EST Office [place] [phone] Dai Whitman APRN 11/21/2024 2:15 PM EST Office [place] [phone] Dayanara Grover MD [facility] [place] [address] Health Maintenance Due Date Last Done Comments CT Colonography 1974 Colonoscopy 1974 Colorectal Cancer Screening 1974 FIT DNA 1974 FIT 1974 Sigmoidoscopy (10 year) with FIT yearly 1974 Sigmoidoscopy 1974 Pneumococcal Vaccine: At-Ris k 5-64yrs (1 of 2 - PCV) 1980 DM Opthalmology Exam 1984 Hepatitis C Screening 1992 Hepatitis B vaccine (0-59 yrs) (1) 1993 Tetanus/Diphtheria/Pertussis Vaccines (1 - Tdap) 1993 DM Urine Microalbumin yearly 01/05/2013 01/06/2012 Zoster vaccine (1 of 2) 2024 Covid-19 Vaccine (1 - 2023-2 5 season) 2024 Influenza (Flu) vaccine (1 o f 1 - Influenza standard series) 07/09/2024 08/22/2013 DM Hemoglobin A1c 12/29/2024 09/28/2024, , 08/21/2013, Additional history exists DM Creatinine yearly 10/16/2025 10/16/2024, 10/10/2024, 10/09/2024, Additional history exists Lipid Screening 07/18/2029 07/18/2024, 05/09, 08/21/2013, Additional history exists HIV screen Completed 09/28/2024, 09/08, 08/01/2024, Additional history exists Medical Devices Implanted Type Area Mat Machine Tender Device Identifier Shelf Expiration Date Model / Serial / Lot DequanSternal ([id number]) - [id number] Implanted:Qty : 1 on 01/04/2012 at [facility] IMPLANTS N/A: Chest [employer] - [id number] 09/03/2016 [id number] / [id number] / [id number] Cable,Sternal ,Single ([id number]) - [id number] Implanted:Qty : 1 on 01/04/2012 at [facility] IMPLANTS N/A: Chest [employer] - [id number] 09/03/2016 [id number] / [id number] / [id number] Graft Soft Tissue 0.8x8cm Square Bovine Xenosure ([id number]) (Autoreq) - [id number] Implanted:Qty : 1 on 08/01/2024 by Lisette Maldonado MD at [facility] IMPLANTS Left: Arterial [employer] - LEIMAITRE 01/05/2030 E0.8P8 / 0000 / [id number] Description:left femoral art wei Graft Vascular [id number] Straight Heparin Coated Thin Wall ([id number]) - [id number] Implanted:Qty : 1 on 08/01/2024 by Lisette Maldonado MD at [facility] IMPLANTS Left: Leg [employer] - [employer] AN [id number] 04/05/2027 [id number] / [id number] / Description:fem-tib (upper l eg to lower leg) vascular bypass graft Graft Bone Filler 20ml Calcium Sulfate Powder Injectable ([id number]) - [id number] Implanted:Qty : 1 on 08/01/2024 by Lisette Maldonado MD at [facility] IMPLANTS Left: Leg [employer] - BI[employer]I [id number] 01/05/2027 620-020 / / [id number] Description:mixed with 1 g v ancomycin Procedures Procedure Name Priority Date/Time Associated Diagnosis Comments CBC (WITH DIFF) Routine 10/16/2024 MRSA bacteremia CK Routine 10/16/2024 MRSA bacteremia COMPREHENSIVE METABOLIC PANEL Routine 10/16/2024 MRSA bacteremia LAB SCAN 10/16/2024 12:00 AM EST POC, GLUCOSE Routine 10/10/2024 4:27 PM EST POC, GLUCOSE Routine 10/10/2024 11:10 AM EST POC, GLUCOSE Routine 10/10/2024 7:46 AM EST POC, GLUCOSE Routine 10/10/2024 6:11 AM EST CK Add-On 10/10/2024 12:33 AM EST CBC (WITH DIFF) Routine 10/10/2024 12:33 AM EST BASIC METABOLIC PANEL Routine 10/10/2024 12:33 AM EST PHOSPHORUS Routine 10/10/2024 12:33 AM EST MAGNESIUM Routine 10/10/2024 12:33 AM EST POC, GLUCOSE Routine 10/10/2024 12:31 AM EST POC, GLUCOSE Routine 10/09/2024 8:16 PM EST POC, GLUCOSE Routine 10/09/2024 3:[address] PICC LINE: CONTACT VASCULAR ACCESS Routine 10/09/2024 1:55 PM EST XR PICC PLACEMENT OVER 5 YEARS (IV TEAM) Routine 10/09/2024 1:55 PM EST POC, GLUCOSE Routine 10/09/2024 11:40 AM EST POC, GLUCOSE Routine 10/09/2024 7:35 AM EST POC, GLUCOSE Routine 10/09/2024 4:26 AM EST CBC (WITH DIFF) Routine 10/09/2024 12:45 AM EST BASIC METABOLIC PANEL Routine 10/09/2024 12:45 AM EST PHOSPHORUS Routine 10/09/2024 12:45 AM EST MAGNESIUM Routine 10/09/2024 12:45 AM EST POC, GLUCOSE Routine 10/09/2024 12:11 AM EST POC, GLUCOSE Routine 10/08/2024 7:25 PM EST POC, GLUCOSE Routine 10/08/2024 5:54 PM EST POC, GLUCOSE Routine 10/08/2024 4:08 PM EST POC, GLUCOSE Routine 10/08/2024 12:44 PM EST POC, GLUCOSE Routine 10/08/2024 8:30 AM EST VANCOMYCIN LEVEL, RANDOM Timed 10/08/2024 5:59 AM EST POC, GLUCOSE Routine 10/08/2024 4:02 AM EST CK Routine 10/08/2024 12:08 AM EST CBC (WITH DIFF) Routine 10/08/2024 12:08 AM EST BASIC METABOLIC PANEL Routine 10/08/2024 12:08 AM EST PHOSPHORUS Routine 10/08/2024 12:08 AM EST MAGNESIUM Routine 10/08/2024 12:08 AM EST POC, GLUCOSE Routine 10/08/2024 12:05 AM EST POC, GLUCOSE Routine 10/07/2024 8:29 PM EST POC, GLUCOSE Routine 10/07/2024 4:33 PM EST POC, GLUCOSE Routine 10/07/2024 10:58 AM EST POC, GLUCOSE Routine 10/07/2024 7:42 AM EST SCAN DOC: TELEMETRY STRIPS 10/07/2024 7:23 AM EST POC, GLUCOSE Routine 10/07/2024 3:58 AM EST CBC (WITH DIFF) Routine 10/07/2024 12:06 AM EST BASIC METABOLIC PANEL Routine 10/07/2024 12:06 AM EST PHOSPHORUS Routine 10/07/2024 12:06 AM EST MAGNESIUM Routine 10/07/2024 12:06 AM EST POC, GLUCOSE Routine 10/07/2024 12:04 AM EST SCAN DOC: TELEMETRY STRIPS 10/06/2024 8:59 PM EST POC, GLUCOSE Routine 10/06/2024 7:24 PM EST POC, GLUCOSE Routine 10/06/2024 5:32 PM EST XR PICC PLACEMENT OVER 5 YEARS (IV TEAM) Routine 10/06/2024 3:[address] PICC LINE: CONTACT VASCULAR ACCESS Routine 10/06/2024 2:57 PM EST POC, GLUCOSE Routine 10/06/2024 12:12 PM EST SCAN DOC: TELEMETRY STRIPS 10/06/2024 10:05 AM EST POC, GLUCOSE Routine 10/06/2024 7:34 AM EST POC, GLUCOSE Routine 10/06/2024 3:29 AM EST VANCOMYCIN LEVEL, RANDOM Add-On 10/06/2024 12:03 AM EST CBC (WITH DIFF) Routine 10/06/2024 12:03 AM EST BASIC METABOLIC PANEL Routine 10/06/2024 12:03 AM EST PHOSPHORUS Routine 10/06/2024 12:03 AM EST MAGNESIUM Routine 10/06/2024 12:03 AM EST POC, GLUCOSE Routine 10/06/2024 12:02 AM EST SCAN DOC: TELEMETRY STRIPS 10/05/2024 7:42 PM EST POC, GLUCOSE Routine 10/05/2024 7:22 PM EST POC, GLUCOSE Routine 10/05/2024 5:35 PM EST POC, GLUCOSE Routine 10/05/2024 3:57 PM EST POC, GLUCOSE Routine 10/05/2024 11:50 AM EST SCAN DOC: TELEMETRY STRIPS 10/05/2024 7:51 AM EST POC, GLUCOSE Routine 10/05/2024 7:51 AM EST POC, GLUCOSE Routine 10/05/2024 4:18 AM EST CBC (WITH DIFF) Routine 10/04/2024 11:50 PM EST BASIC METABOLIC PANEL Routine 10/04/2024 11:50 PM EST PHOSPHORUS Routine 10/04/2024 11:50 PM EST MAGNESIUM Routine 10/04/2024 11:50 PM EST POC, GLUCOSE Routine 10/04/2024 11:36 PM EST SCAN DOC: TELEMETRY STRIPS 10/04/2024 10:22 PM EST POC, GLUCOSE Routine 10/04/2024 7:32 PM EST EKG 12-LEAD Routine 10/04/2024 7:14 PM EST QT prolongation POC, GLUCOSE Routine 10/04/2024 5:07 PM EST POC, GLUCOSE Routine 10/04/2024 4:49 PM EST SCAN DOC: TELEMETRY STRIPS 10/04/2024 4:28 PM EST Debridement, Skin, Sub-Q Tissue ([id number]) 10/04/2024 3:10 PM EST Status post explant of infected left SALICYLIC ACID BLENDER-BK pop bypass graft DEBRIDEMENT SKIN AND SUBCU, LOWER EXTREMITY Routine 10/04/2024 1:46 PM EST INCISION & DRAINAGE ABSCESS OR HEMATOMA, THIGH, KNEE SUPERFICIAL Routine 10/04/2024 12:27 PM EST INCISION & DRAINAGE, LEG OR ANKLE, DEEP ABSCESS OR HEMATOMA Routine 10/04/2024 12:25 PM EST EXCISION OF INFECTED GRAFT FROM LOWER EXTREMITY Routine 10/04/2024 12:25 PM EST POC, GLUCOSE Routine 10/04/2024 11:49 AM EST SCAN DOC: TELEMETRY STRIPS 10/04/2024 9:58 AM EST VANCOMYCIN, TROUGH Timed 10/04/2024 7: 53 AM EST POC, GLUCOSE Routine 10/04/2024 7:51 AM EST POC, GLUCOSE Routine 10/04/2024 3:53 AM EST CBC (WITH DIFF) Routine 10/04/2024 12:08 AM EST BASIC METABOLIC PANEL Routine 10/04/2024 12:08 AM EST PHOSPHORUS Routine 10/04/2024 12:08 AM EST MAGNESIUM Routine 10/04/2024 12:08 AM EST POC, GLUCOSE Routine 10/04/2024 12:01 AM EST SCAN DOC: TELEMETRY STRIPS 10/03/2024 9:48 PM EST POC, GLUCOSE Routine 10/03/2024 7:56 PM EST POC, GLUCOSE Routine 10/03/2024 5:29 PM EST POC, GLUCOSE Routine 10/03/2024 12:54 PM EST POC, GLUCOSE Routine 10/03/2024 7:59 AM EST SCAN DOC: TELEMETRY STRIPS 10/03/2024 7:27 AM EST POC, GLUCOSE Routine 10/03/2024 5:32 AM EST POC, GLUCOSE Routine 10/03/2024 4:16 AM EST POC, GLUCOSE Routine 10/03/2024 2:02 AM EST CBC (WITH DIFF) Routine 10/03/2024 12:27 AM EST BASIC METABOLIC PANEL Routine 10/03/2024 12:27 AM EST PHOSPHORUS Routine 10/03/2024 12:27 AM EST MAGNESIUM Routine 10/03/2024 12:27 AM EST POC, GLUCOSE Routine 10/03/2024 12:13 AM EST POC, GLUCOSE Routine 10/02/2024 8:17 PM EST POC, GLUCOSE Routine 10/02/2024 6:22 PM EST POC, GLUCOSE Routine 10/02/2024 5:01 PM EST SCAN DOC: TELEMETRY STRIPS 10/02/2024 3:06 PM EST POC, GLUCOSE Routine 10/02/2024 3:05 PM EST Debridement Muscle And Fascia 20 Sq Cm/< ([id number]) 10/02/2024 1:28 PM EST Infected LLE graft explant DEBRIDEMENT SKIN, SUBCU, MUSCLE, LOWER EXTREMITY Routine 10/02/2024 12:36 PM EST POC, GLUCOSE Routine 10/02/2024 11:12 AM EST POC, GLUCOSE Routine 10/02/2024 8:12 AM EST POC, GLUCOSE Routine 10/02/2024 4:19 AM EST PHOSPHORUS Routine 10/02/2024 12:41 AM EST MAGNESIUM Routine 10/02/2024 12:41 AM EST BASIC METABOLIC PANEL STAT 10/02/2024 12:41 AM EST CBC (WITH DIFF) STAT 10/02/2024 12:41 AM EST POC, GLUCOSE Routine 10/02/2024 12:40 AM EST POC, GLUCOSE Routine 10/01/2024 8:11 PM EST POC, GLUCOSE Routine 10/01/2024 6:00 PM EST POC, GLUCOSE Routine 10/01/2024 3:53 PM EST POC, GLUCOSE Routine 10/01/2024 2:25 PM EST POC, GLUCOSE Routine 10/01/2024 11:43 AM EST POC, GLUCOSE Routine 10/01/2024 9:43 AM EST POC, GLUCOSE Routine 10/01/2024 7:48 AM EST POC, GLUCOSE Routine 10/01/2024 4:25 AM EST PHOSPHORUS Add-On 10/01/2024 2:02 AM EST SCAN, PERIPHERAL BLOOD FABIO 2:02 AM EST MAGNESIUM Routine 10/01/2024 2:02 AM EST BASIC METABOLIC PANEL STAT 10/01/2024 2:02 AM EST CBC (WITH DIFF) STAT 10/01/2024 2:02 AM EST POC, GLUCOSE Routine 10/01/2024 12:32 AM EST POC, GLUCOSE Routine 09/30/2024 7:37 PM EST POC, GLUCOSE Routine 09/30/2024 4:29 PM EST POC, GLUCOSE Routine 09/30/2024 12:16 PM EST POC, GLUCOSE Routine 09/30/2024 7:58 AM EST POTASSIUM Routine 09/30/2024 6:27 AM EST VANCOMYCIN, TROUGH Timed 09/30/2024 6: 27 AM EST POC, GLUCOSE Routine 09/30/2024 3:51 AM EST MAGNESIUM Routine 09/29/2024 11:52 PM EST BASIC METABOLIC PANEL STAT 09/29/2024 11:52 PM EST CBC (WITH DIFF) STAT 09/29/2024 11:52 PM EST POC, GLUCOSE Routine 09/29/2024 11:51 PM EST BLOOD CULTURE Routine 09/29/2024 9:24 PM EST MRSA bacteremia BLOOD CULTURE Routine 09/29/2024 9:24 PM EST POC, GLUCOSE Routine 09/29/2024 7:35 PM EST POC, GLUCOSE Routine 09/29/2024 6:48 PM EST POC, GLUCOSE Routine 09/29/2024 4:06 PM EST DEBRIDEMENT SKIN, SUBCU, MUSCLE, LOWER EXTREMITY Routine 09/29/2024 3:07 PM EST EXPLORATION W\O SURGICAL REPAIR, FEMORAL ARTERY - JENNIFER Routine 09/29/2024 3:06 PM EST Debridement Muscle And Fascia 20 Sq Cm/< ([id number]) 09/29/2024 2:06 PM EST explanted LLE infected graft Exploration Not Followed By Surg Lower Extremity Artery ([id number]) 09/29/2024 2:06 PM EST explanted LLE infected graft POC, GLUCOSE Routine 09/29/2024 11:49 AM EST INCISION & DRAINAGE ABSCESS OR HEMATOMA, THIGH, KNEE SUPERFICIAL Routine 09/29/2024 11:03 AM EST INCISION & DRAINAGE, LEG OR ANKLE, DEEP ABSCESS OR HEMATOMA Routine 09/29/2024 11:02 AM EST POC, GLUCOSE Routine 09/29/2024 7:53 AM EST POC, GLUCOSE Routine 09/29/2024 3:45 AM EST HEMOGLOBIN A1C Add-On 09/28/2024 11:51 PM EST MAGNESIUM Routine 09/28/2024 11:51 PM EST BASIC METABOLIC PANEL STAT 09/28/2024 11:51 PM EST CBC (WITH DIFF) STAT 09/28/2024 11:51 PM EST POC, GLUCOSE Routine 09/28/2024 11:45 PM EST POC, GLUCOSE Routine 09/28/2024 10:00 PM EST POC, GLUCOSE Routine 09/28/2024 7:51 PM EST BLOOD CULTURE Routine 09/28/2024 5:49 PM EST EXCISION OF INFECTED GRAFT FROM LOWER EXTREMITY Routine 09/28/2024 5:33 PM EST FLAP, PEDICLE,W OR W/O TRANSFER, LEGS Routine 09/28/2024 5:32 PM EST HARVEST SAPHENOUS VEIN Routine 5:32 PM EST POC, GLUCOSE Routine 09/28/2024 4:42 PM EST BLOOD GAS ARTERIAL POC Routine 3:16 PM EST SURGICAL PATHOLOGY Routine 09/28/2024 2: 10 PM EST Excision, Infec Graft, Extremity ([id number]) 09/28/2024 11:28 AM EST Infected explanted left leg bypass graft Form Skin Pedicle Flap Scalp, Arm, Leg ([id number]) 09/28/2024 11:28 AM EST Infected explanted left leg bypass graft Unlisted Procedure Vascular Surgery ([id number]) 09/28/2024 11:28 AM EST Infected explanted left leg bypass graft Revision Femoral Anast Bpg Groin Open W/Nonautog Patch Graft ([id number]) 09/28/2024 11:28 AM EST Infected explanted left leg bypass graft POTASSIUM Routine 09/28/2024 10:45 AM EST REV. FEM. ANAST. BYPASS GRAFT, JENNIFER, NONAUTO PATCH ANGIO Routine 09/28/2024 8:42 AM EST POC, GLUCOSE Routine 09/28/2024 7:57 AM EST ELEN, LEGS, MULTIPLE LEVELS STAT 09/28/2024 7:44 AM EST Vascular graft infection, initial encounter PAD (peripheral artery disease) Critical limb ischemia of left lower extremity ECHO LMTD W/O CONTRAST W LMTD SPEC DOPP COLOR DOPP Routine 09/28/2024 7:35 AM EST Vascular graft infection, initial encounter MRSA bacteremia VANCOMYCIN, TROUGH Timed 09/28/2024 6: 44 AM EST POTASSIUM Routine 09/28/2024 4:55 AM EST POC, GLUCOSE Routine 09/28/2024 3:54 AM EST MAGNESIUM Routine 09/27/2024 11:58 PM EST BASIC METABOLIC PANEL STAT 09/27/2024 11:58 PM EST CBC (WITH DIFF) STAT 09/27/2024 11:58 PM EST POC, GLUCOSE Routine 09/27/2024 11:46 PM EST BLOOD CULTURE STAT 09/27/2024 9:33 PM EST POC, GLUCOSE Routine 09/27/2024 7:51 PM EST HEMOGRAM STAT 09/27/2024 5:55 PM EST POC, GLUCOSE Routine 09/27/2024 5:48 PM EST ANAEROBIC CULTURE Routine 09/27/2024 4:5 4 PM EST TISSUE CULTURE, AEROBIC & ANAEROBIC Routine 09/27/2024 4:54 PM EST AFB CULTURE Routine 09/27/2024 4:54 PM EST TISSUE CULTURE Routine 09/27/2024 4:54 PM EST FUNGUS CULTURE Routine 09/27/2024 4:54 PM EST I&D Deep Abscess Bursa/Hematoma Thigh/Knee Region ([id number]) 09/27/2024 3:45 PM EST Infected explanted left leg bypass graft Drain Lower Leg Deep Absc/Hematoma ([id number]) 09/27/2024 3:45 PM EST Infected explanted left leg bypass graft Excision, Infec Graft, Extremity ([id number]) 09/27/2024 3:45 PM EST Infected explanted left leg bypass graft Debridement, Skin, Sub-Q Tissue ([id number]) 09/27/2024 3:45 PM EST Infected explanted left leg bypass graft POC, GLUCOSE Routine 09/27/2024 3:23 PM EST POC, GLUCOSE Routine 09/27/2024 11:29 AM EST DEBRIDEMENT SKIN AND SUBCU, LOWER EXTREMITY Routine 09/27/2024 11:[address] LOWER EXTREMITY W CONTRAST LEFT STAT 09/27/2024 9:16 AM EST POC, GLUCOSE Routine 09/27/2024 7:51 AM EST POTASSIUM Routine 09/27/2024 7:51 AM EST MRSA PCR SCREEN Routine 09/27/2024 7:51 AM EST POTASSIUM Routine 09/27/2024 5:05 AM EST POC, GLUCOSE Routine 09/27/2024 3:52 AM EST POC, GLUCOSE Routine 09/27/2024 1:59 AM EST MAGNESIUM Routine 09/27/2024 12:01 AM EST BASIC METABOLIC PANEL STAT 09/27/2024 12:01 AM EST CBC (WITH DIFF) STAT 09/27/2024 12:01 AM EST POC, GLUCOSE Routine 09/26/2024 11:59 PM EST SCAN DOC: TELEMETRY STRIPS 09/26/2024 8:55 PM EST POC, GLUCOSE Routine 09/26/2024 7:34 PM EST BLOOD CULTURE STAT 09/26/2024 6:45 PM EST SONICATED TISSUE/IMPLANT CULTURE Routine 09/26/2024 5:16 PM EST ANAEROBIC CULTURE STAT 09/26/2024 5:0 2 PM EST ABSCESS/WOUND ASPIRATE CULTURE STAT 09/26/2024 5:02 PM EST ABSCESS/WOUND ASP CULTURE, AEROBIC AND ANAEROBIC STAT 09/26/2024 5:02 PM EST AFB CULTURE STAT 09/26/2024 5:02 PM EST FUNGUS CULTURE STAT 09/26/2024 5:02 PM EST ANAEROBIC CULTURE STAT 09/26/2024 4:5 0 PM EST ABSCESS/WOUND ASPIRATE CULTURE STAT 09/26/2024 4:50 PM EST ABSCESS/WOUND ASP CULTURE, AEROBIC AND ANAEROBIC STAT 09/26/2024 4:50 PM EST FUNGUS CULTURE STAT 09/26/2024 4:50 PM EST BLOOD GAS ARTERIAL POC Routine 4:43 PM EST POC, GLUCOSE Routine 09/26/2024 4:29 PM EST I&D Deep Abscess Bursa/Hematoma Thigh/Knee Region ([id number]) 09/26/2024 3:52 PM EST left infected femoral to below knee bypass graft Drain Lower Leg Deep Absc/Hematoma ([id number]) 09/26/2024 3:52 PM EST left infected femoral to below knee bypass graft Excision, Infec Graft, Extremity ([id number]) 09/26/2024 3:52 PM EST left infected femoral to below knee bypass graft BLOOD GAS VENOUS POC Routine 09/26/2024 3:28 PM EST EXCISION OF INFECTED GRAFT FROM LOWER EXTREMITY Routine 09/26/2024 2:46 PM EST ABORH RECHECK (PATIENT HISTORY FOUND) Routine 09/26/2024 2:39 PM EST TYPE AND SCREEN (MC/CGP/BABITA) STAT 09/26/2024 2:39 PM EST SCAN, PERIPHERAL BLOOD STAT 2:39 PM EST HEPATIC FUNCTION PANEL Add-On 2:39 PM EST PHOSPHORUS STAT 09/26/2024 2:39 PM EST MAGNESIUM STAT 09/26/2024 2:39 PM EST BASIC METABOLIC PANEL STAT 09/26/2024 2:39 PM EST CBC (WITH DIFF) STAT 09/26/2024 2:39 PM EST FIBRINOGEN STAT 09/26/2024 2:39 PM EST HC PARTIAL THROMBOPLASTIN TIME STAT 09/26/2024 2:39 PM EST PROTHROMBIN TIME STAT 09/26/2024 2:39 PM EST POC, GLUCOSE Routine 09/26/2024 2:36 PM EST BLOOD CULTURE STAT 09/26/2024 2:22 PM EST REQUEST FOR 2ND READ CT LOWER EXTREMITY Routine 09/26/2024 1:50 PM EST FILM LIBRARY STORAGE ONLY CT LOWER EXTREMITY Routine 09/26/2024 10:21 AM EST FILM LIBRARY STORAGE ONLY CT LOWER EXTREMITY Routine 09/20/2024 12:00 AM EST UNILATERAL BYPASS GRAFT ASSESS Routine 08/28/2024 12:55 [...] AM EDT BLOOD GAS ARTERIAL POC Routine 8:04 AM EDT Bypass Graft Othr, Fem-Tibial ([id number]) 08/01/2024 7:34 AM EDT CLTI POC, GLUCOSE [...] POC, GLUCOSE Routine 07/21/2024 3:57 AM EDT HDL/CHOL PROFILE Routine 07/18/2024 3:33 AM EDT U ALBUMIN/CRE RATIO Timed 01/06/2012 9 :03 PM EST HELEN complete wo contrast ([id number]) nstemi afib from Last 3 Months or Most Recently Relevant to Health Maintenance Results * Scan Doc: Lab (10/16/2024 12:00 AM EST) Narrative 10/16/2024 12:00 AM EST Ordered by an unspecified provider. Scanning Provider MEDIA MGR SCAN EXT O RDR/RSLT * (ABNORMAL) CBC (with Diff) (10/16/2024) Only the most recent of19 resultswithin the time period is included. WBC - External 10.99(H) [facility] RBC - External 3.71(L) [facility] Hemoglobin - External 10.8(L) [facility] Hematocrit - External 33.8(L) [facility] MCV - External 91 [facility] MCH - External 29.1 [facility] MCHC - External 32.0 [facility] RDWCV - External 14.2(H) [facility] Platelets - External 512(H) [facility] MPV - External 9.8 [facility] NRBC % - External 0.0 [facility] NRBC Abs - External 0.0 [facility] Neutrophils % - External 64.2 [facility] Lymphocytes % - External 25.8 [facility] Monocytes % - External 6.8 [facility] Eosinophils % - External 2.0 [facility] Basophils % - External 0.9 [facility] Immature Gran % - External 0.3 [facility] Neutr ABS (ANC) - External 7.06(H) [facility] Lymphocyte ABS - External 2.84 [facility] Monocyte ABS - External 0.75 [facility] Eosinophil ABS - External 0.22 [facility] Basophil ABS - External 0.10 [facility] Blood VENOUS BLOOD SPECIMEN / Unknown 10/16/2024 Amaya Hernandez MD HEMATOLOGY ORDERABLE S Performing Organization Address City/[facility]/ZIP Co de Phone Number [address] [place], [place] [address] [phone] * CK (10/16/2024) Only the most recent of3 resultswithin the time period is included. CK, Total - External 39 [facility] Blood VENOUS BLOOD SPECIMEN / Unknown 10/16/2024 Amaya Hernandez MD CHEMISTRY ORDERABLES [address] [place], [place] [address] [phone] * (ABNORMAL) Comprehensive metabolic panel Non-fasting (10/16/2024) Glucose Lvl - External 124(H) [facility] Blood Urea Nitrogen - External 17 [facility] Creatinine - External 0.9 [facility] EGFR - External 104.05 [facility] Anion Gap - External 11.6(H) [facility] Sodium - External 141 [facility] Potassium - External 4.3 [facility] Chloride - External 103 [facility] CO2 - External 26.4 [facility] Calcium - External 9.0 [facility] Protein, Total - External 6.9 [facility] Albumin - External 3.0(L) [facility] Total Bilirubin - External 0.20 [facility] Alk Phos - External 124(H) [facility] AST (SGOT) - External 12 [facility] ALT (SGPT) - External 22 [facility] Blood VENOUS BLOOD SPECIMEN / Unknown 10/16/2024 Amaya Hernandez MD CHEMISTRY ORDERABLES [address] [place], [place] [address] [phone] * POC, GLUCOSE (10/10/2024 4:27 PM EST) Only the most recent of118 resultswithin the time period is included. Glucometer, POC 172 65 - 199 mg/dL 10/10/2024 4:27 PM EST [facility] Comment:Supplemental ranges: <140 mg/dL before meals <180 mg/dL all other times of the day. Blood CAPILLARY BLOOD / Unknown 10/10/2024 4:27 PM EST 10/10/2024 4:27 PM EST Hayely Torres MD POINT OF CARE TEST O RDERABLES [facility] [place] [address] * Phosphorus (10/10/2024 12:33 AM EST) Only the most recent of14 resultswithin the time period is included. Phosphorus 3.8 2.5 - 4.5 mg/dL 10/10/2024 1:12 AM EST [facility] Blood VENOUS BLOOD SPECIMEN / Unknown Venipuncture / Unknown 10/10/2024 12:33 AM EST 10/10/2024 12:43 AM EST Hayley Torres MD CHEMISTRY ORDERABLES Performing Organization Address City/[facility] Co de Phone Number [facility] [place] [address] * Magnesium (10/10/2024 12:33 AM EST) Only the most recent of18 resultswithin the time period is included. Magnesium 0.81 0.69 - 1.07 mMol/L 10/10/2024 1:12 AM EST [facility] Blood VENOUS BLOOD SPECIMEN / Unknown Venipuncture / Unknown 10/10/2024 12:33 AM EST 10/10/2024 12:43 AM EST Hayley Torres MD CHEMISTRY ORDERABLES Performing Organization Address City/[facility] Co de Phone Number [facility] [place] [address] * (ABNORMAL) Basic Metabolic Panel (10/10/2024 12:33 AM EST) Only the most recent of18 resultswithin the time period is included. Glucose 125 65 - 199 mg/dL 10/10/2024 1:12 AM EST [facility] Comment:Glucose Concentratio n >=200 mg/dL plus symptoms is consistent with Diabetes Mellitus. Blood Urea Nitrogen 19 10 - 20 mg/dL 10/10/2024 1:12 AM EST [facility] Creatinine 0.57(L) 0.80 - 1.50 mg/dL 10/10/2024 1:12 AM EST [facility] Sodium 138 135 - 145 mMol/L 10/10/2024 1:12 AM EST [facility] Potassium 4.1 3.5 - 5.0 mMol/L 10/10/2024 1:12 AM [facility] Chloride 103 98 - 107 mMol/L 10/10/2024 1:12 AM [facility] Carbon Dioxide 25 22 - 31 mMol/L 10/10/2024 1:12 AM [facility] Anion Gap 10 5 - 15 mMol/L 10/10/2024 1:12 AM [facility] Calcium 9.4 8.5 - 10.5 mg/dL 10/10/2024 1:12 AM [facility] Est Glomerular Filtration Rate - Male 119 mL/min/1. 73 m?? 10/10/2024 1:12 AM [facility] Comment: This patient's estimated GFR was [...] BLOOD SPECIMEN / Unknown Venipuncture / Unknown 10/10/2024 12:33 AM EST 10/10/2024 12:43 AM EST Hayley Torres MD CHEMISTRY ORDERABLES [facility] [place] [address] * Place PICC Line: Contact Vascular Access Page [phone] Extremity to exclude: No restrictions; Is PICC procedure required PRIOR to patients discharge? Yes (10/09/2024 1:55 PM EST) Narrative Shaper And Presser, Jorge R, RN - 10/09/2024 1:55 PM EST Jorge Torres RN ? 10/09/2024 ??1:57 PM PICC/Midline Insertion Procedure Note Indications: Anti-infective This insertion was to replace a malfunctioning catheter. This insertion was due to a suspected line-associated infection. Location of Procedure: X-Ray Room 11 Risks and Benefits: The risks and benefits of this procedure were reviewed and informed consent was obtained obtained. Time Out: Prior to the start of the procedure, the patient's identity, intended procedure, site/side, correct patient positioning and presence of the site navneet was confirmed as applicable. The medical history and chart were reviewed to rule out potential contraindications to the planned procedure. Hand Hygiene: The lens inserter did perform hand hygiene prior to line insertion. Catheter type: PICC Lot number: [id number] Procedure Technique: Skin was prepped with chlorhexidine. Skin preparation agent was completely dry at the time of first skin puncture. The following barrier precaution methods were used:large sterile drape, maske/eye shield, large sterile gown, sterile gloves, and cap. 3 ml of 1% Lidocaine was used for skin wheal. Ultrasound was used for guidance. ??Radiographic contrast agent was not injected for vein identification. Procedure Details: Order received for catheter placement. A 4 Fr. single lumen Bard Power catheter was placed into the left basilic vein over a 0.018 inch guidewire using modified seldinger technique and fluoroscopy. Arm circumference was 32 cm at 2 cm above the insertion site. Final catheter length (with trimming): 50 cm Internal: 50 cm External: 0 cm Tip in SVC per Dr. Hamilton. The line was not placed over a guidewire. Post Procedure: Diagnosis: Vascular graft infection Blood return noted on aspiration of line after placement confirmed. 10 mls of normal saline infused free flowing to gravity via PICC after insertion. Sterile dressing applied: CHG Impregnated Tegaderm. Findings: The patient did tolerate the procedure well. No Complications. Procedure Comments: Successful PICC insertion Jorge Torres RN 10/09/2024 María Carranza APRN PROCEDURE/MINOR SURGICAL ORDERABLES * XR PICC Placement Over 5 Years with Imaging Guidance (IV Team) (10/09/2024 1:55 PM EST) Only the most recent of2 resultswithin the time period is included. WORKSTATION ID [id number] [facility] Anatomical Region Laterality Modality N/A Radio Fluoroscop y Impressions 10/09/2024 3:30 PM EST Left-sided PICC line with tip projected at the level of the superior cavoatrial junction or just into the right atrium. Thank you for letting us participate in the care of this patient. ??If you are a health care provider and have any questions regarding this report, please contact the number below. ??For patients who have questions please contact the health career services officer that requested your imaging first. ? Electronically signed by: Terell Salvador MD, [facility] ([phone]), at 10/09/2024 3:30 PM Narrative 10/09/2024 3:30 PM EST EXAMINATION: XR PICC PLACEMENT OVER 5 YEARS WITH IMAGING GUIDANCE (IV TEAM) CLINICAL HISTORY: Confirmation of PICC line placement TECHNIQUE: C-arm placement of PICC line. Limited view of the line tip only. COMPARISON: PICC line spot view 10/06/2024. FINDINGS: Intraprocedural frontal radiograph of the mediastinum demonstrates a left PICC line, with the catheter tip projected at the level of the superior cavoatrial junction or just into the right atrium. Multiple sternal wires are seen. Procedure Note Terell Salvador MD - 10/09/2024 EXAMINATION: XR PICC PLACEMENT OVER 5 YEARS WITH IMAGING GUIDANCE (IVTEAM) CLINICAL HISTORY: Confirmation of PICC line placement TECHNIQUE: C-arm placement of PICC line. Limited view of the line tiponly. COMPARISON: PICC line spot view 10/06/2024. FINDINGS: Intraprocedural frontal radiograph of the mediastinumdemonstrates a left PICC line, with the catheter tip projected at the level of thesuperior cavoatrial junction or just into the right atrium. Multiple sternal wiresare seen. IMPRESSION Left-sided PICC line with tip projected at the level of the superior cavoatrial junction or just into the right atrium. Thank you for letting us participate in the care of this patient. If youare a health care provider and have any questions regarding this report,please contact the number below. For patients who have questions please contactthe health career services officer that requested your imaging first. Electronically signed by: Terell Salvador MD, [facility]([phone]), at 10/09/2024 3:30 PM María Carranza APRN IMG FLUORO [facility] * Vancomycin Level, Random (10/08/2024 5:59 AM EST) Only the most recent of2 resultswithin the time period is included. Vancomycin, Random 6.8 mg/L 2023 7:58 AM EST [facility] Comment:This level is for de termination of the patient's vancomycin tjrm-tdadd-mwm-curve (AUC) value. Contact the inpatient pharmacy for interpretation. Blood VENOUS BLOOD SPECIMEN / Unknown Venipuncture / Unknown 10/08/2024 5:59 AM EST 10/08/2024 7:29 AM EST Hayley Torres MD CHEMISTRY ORDERABLES [facility] [place] [address] * Scan Doc: Telemetry Strips (10/07/2024 7:23 AM EST) Only the most recent of13 resultswithin the time period is included. Narrative 10/07/2024 7:23 AM EST Ordered by an unspecified provider. Scanning Provider MEDIA MGR SCAN EXT O RDR/RSLT * Place PICC Line: Contact Vascular Access Page [phone] Extremity to exclude: No restrictions; Is PICC procedure required PRIOR to patients discharge? Yes (10/06/2024 2:57 PM EST) Narrative Dominique Holman RN - 10/06/2024 2:57 PM EST Dominique Holman RN ? 10/06/2024 ??3:00 PM PICC/Midline Insertion Procedure Note Indications: Access This insertion was not to replace a malfunctioning catheter. This insertion was not due to a suspected line-associated infection. Location of Procedure: X-Ray Room 11 Risks and Benefits: The risks and benefits of this procedure were reviewed and informed consent was obtained obtained. Time Out: Prior to the start of the procedure, the patient's identity, intended procedure, site/side, correct patient positioning and presence of the site navneet was confirmed as applicable. The medical history and chart were reviewed to rule out potential contraindications to the planned procedure. Hand Hygiene: The lens inserter did perform hand hygiene prior to line insertion. Catheter type: PICC Lot number: [id number] Procedure Technique: Skin was prepped with chlorhexidine. Skin preparation agent was completely dry at the time of first skin puncture. The following barrier precaution methods were used:large sterile drape, maske/eye shield, large sterile gown, sterile gloves, and cap. 5 ml of 1% Lidocaine was used for skin wheal. Ultrasound was used for guidance. ??Radiographic contrast agent was not injected for vein identification. Procedure Details: Order received for catheter placement. A 5 Fr. double lumen Bard Power catheter was placed into the right basilic vein over a 0.018 inch guidewire using modified seldinger technique and fluoroscopy. Arm circumference was 36.5 cm at 2 cm above the insertion site. Final catheter length (with trimming): 40 cm Internal: 40 cm External: 0 cm Tip in cavoatrial junction ??per Dr Weiner. The line was not placed over a guidewire. Post Procedure: Diagnosis: Graft infection Blood return noted on aspiration of line after placement confirmed. 5 mls of normal saline infused free flowing to gravity via PICC after insertion. Sterile dressing applied: CHG Impregnated Tegaderm. Findings: The patient did tolerate the procedure well. No Complications. Procedure Comments: Successful PICC placement Dominique Holman RN 10/06/2024 Vibha Benson APRN PROCEDURE/MINOR GORE RGICAL ORDERABLES * EKG 12 Lead (10/04/2024 7:14 PM EST) Pathologist [facility] Ventricular rate 81 BPM MUSE SYSTEM Atrial Rate 81 BPM MUSE SYSTEM P-R Interval 174 ms MUSE SYSTEM QRS Duration 112 ms MUSE SYSTEM Q-T Interval 422 ms MUSE SYSTEM QTC Calculated (Bezet) 490 ms MUSE SYSTEM Calculated P Sycamore 34 degrees MUSE SYSTEM Calculated R [place]camore 11 degrees MUSE SYSTEM Calculated T [place]camore 59 degrees MUSE SYSTEM INTERPRETATION Normal sinus rhythm Cannot rule out Inferior infarct , age undetermined Nonspecific T wave abnormality Borderline ECG When compared with ECG of 29-MAY-2024 14:51, Nonspecific T wave abnormality now evident in Lateral leads Confirmed by MD Robert, Deandre Guadarrama ([id number]) on 10/05/2024 3:35:42 PM MUSE SYSTEM 10/04/2024 7:14 PM EST 10/05/2024 3:35 PM EST Hayley Torres MD ECG ORDERABLES Performing Organization Address City/[facility]/ZIP Co de Phone Number MUSE SYSTEM * Vancomycin, trough (10/04/2024 7:53 AM EST) Only the most recent of3 resultswithin the time period is included. Pathologist [facility] Vancomycin, Trough 19.8 10.0 - 20.0 mg/L 10/04/2024 9:16 AM EST [facility] Comment: Varies according to infection source. Blood VENOUS BLOOD SPECIMEN / Unknown Venipuncture / Unknown 10/04/2024 7:53 AM EST 10/04/2024 8:11 AM EST Hayley Torres MD CHEMISTRY ORDERABLES [facility] [place] [address] * (ABNORMAL) Scan, Peripheral Blood (10/01/2024 2:02 AM EST) Only the most recent of2 resultswithin the time period is included. [facility] RBC Morphology Abnormal 10/01/2024 2:55 AM EST [facility] Platelet Estimate Increased(A) Normal 10/01 2:55 AM EST [facility] Polychromasia Present 10/01/2024 2:55 AM EST [facility] Platelet Clumps Present(A) (none) 2:55 AM EST [facility] Blood VENOUS BLOOD SPECIMEN / Unknown Venipuncture / Unknown 10/01/2024 2:02 AM EST 10/01/2024 2:10 AM EST Hayley Torres MD HEMATOLOGY ORDERABLE S Performing Organization Address City/[facility]/ZIP Co de Phone Number [facility] [place] [address] * Potassium (09/30/2024 6:27 AM EST) Only the most recent of5 resultswithin the time period is included. Potassium 3.9 3.5 - 5.0 mMol/L 09/30/2024 7:10 AM EST [facility] Blood VENOUS BLOOD SPECIMEN / Unknown Venipuncture / Unknown 09/30/2024 6:27 AM EST 09/30/2024 6:35 AM EST Hayley Torres MD CHEMISTRY ORDERABLES Performing Organization Address City/[facility]/ZIP Co de Phone Number [facility] [place] [address] * Blood culture (09/29/2024 9:24 PM EST) Only the most recent of6 resultswithin the time period is included. Blood Culture No growth at 120 hours 10/04/2024 11:01 PM EST [facility] Blood VENOUS BLOOD SPECIMEN / Unknown Venipuncture / Unknown 09/29/2024 9:24 PM EST 09/29/2024 9:34 PM EST Hayley Torres MD MICROBIOLOGY - BLOOD ORDERABLES Performing Organization Address City/[facility]/ZIP Co de Phone Number [facility] [place] [address] * (ABNORMAL) Hemoglobin A1c (09/28/2024 11:51 PM EST) Pathologist [facility] Hemoglobin A1c 9.7(H) 4.3 - 5.6 % 09/29/2024 9:54 AM [facility] Comment: Per ADA guidelines, without clear symptoms of hyperglycemia or a random plasma glucose >199 mg/dL, a single abnormal A1c measurement cannot be used to diagnose diabetes mellitus. The diagnosis must be confirmed by either 1) a concurrent abnormal fasting plasma glucose or impaired response to oral glucose tolerance testing, or 2) an additional abnormal A1c, impaired fasting plasma glucose, or impaired response to oral glucose tolerance testing on a different day. A1c results obtained on patients with altered red blood cell turnover may not be bilingual inside sales representative of glycemic control. Reference Interval: 4.3 - 5.6% 5.7 - 6.4%: Consistent with prediabetes >=6.5%: Consistent with diagnosis of diabetes mellitus Estimated Average Glucose 232 mg/dL 09/29/2024 9:54 AM [facility] Blood VENOUS BLOOD SPECIMEN / Unknown Venipuncture / Unknown 09/28/2024 11:51 PM EST 09/28/2024 11:56 PM EST Hayley Torres MD CHEMISTRY ORDERABLES [facility] [place] [address] * (ABNORMAL) Blood Gas, Arterial POC (09/28/2024 3:16 PM EST) Only the most recent of3 resultswithin the time period is included. pH, Arterial 7.42 7.35 - 7.45 09/28/2024 3:17 PM [facility] PCO2, Arterial 39 35 - 45 mmHg 09/28/2024 3:17 PM [facility] PO2, Arterial 103 85 - 104 mmHg 09/28/2024 3:17 PM [facility] Bicarbonate, Arterial 24.8 20.0 - 26.0 mmol/L 09/28/2024 3:17 PM [facility] Base Excess, Arterial 0.2 -3.0 - 3.0 mmol/L 09/28/2024 3:17 PM [facility] Hemoglobin, Arterial 10.9(L) 13.7 - 16.5 g/dL 09/28/2024 3:17 PM [facility] Oxyhemoglobin, Arterial 97.1(H) 94.0 - 97.0 % 09/28/2024 3:17 PM [facility] Carboxyhemoglobin , Arterial 0.1 % 09/28/2024 3:17 PM [facility] Comment: Nonsmokers: 0.5-1.5% COHB ?? Smokers: Variable ??but usually less than 10% ?? Toxic: 20-30% COHB ?? Lethal: Greater than 60% COHB Methemoglobin, Arterial 0.2 <=1.5 % 09/28/2024 3:17 PM [facility] Sodium, Arterial 131(L) 135 - 145 mmol/L 09/28/2024 3:17 PM [facility] Potassium, Arterial 3.8 3.5 - 5.0 mmol/L 09/28/2024 3:17 PM [facility] Chloride, Arterial 99 98 - 107 mmol/L 09/28/2024 3:17 PM [facility] Lactate, Arterial 1.1 0.5 - 2.2 mmol/L 09/28/2024 3:17 PM [facility] IONIZED CALCIUM, ARTERIAL 1.08(L) 1.15 - 1.33 mmol/L 09/28/2024 3:17 PM [facility] Glucose, Arterial 163 65 - 199 mg/dL 09/28/2024 3:17 PM [facility] Comment:Glucose Concentratio n >=200 mg/dL plus symptoms is consistent with Diabetes Mellitus. Blood ARTERIAL BLOOD / Unknown 09/28/2024 3:16 PM EST 09/28/2024 3:17 PM EST Hayley Torres MD POINT OF CARE TEST O RDERABLES [facility] [place] [address] * Surgical Pathology (09/28/2024 2:10 PM EST) Case Report Surgical Pathology Report ? Case: [id number] ? Authorizing Provider: ??Hayley Torres MD ? Collected: ? 09/28/2024 1410 ? Ordering Location: ? Main Operating Room [facility] ?? Received: ?09/28/2024 1644 ? [facility] ? Hospital ? Pathologist: ? Aziza Packer MD ? Specimens: ?? A) - Leg, Left, Left femoral proximal graft ? B) - Leg, Left, Left distal BK pop graft ? 10/02/2024 8:17 AM [facility] Final Diagnosis A. Graft, left leg, femoral proximal, excision: - Gross surgical pathology examination. B. Graft, left leg, distal BK pop, excision: - Gross surgical pathology examination. 10/02/2024 8:17 AM [facility] Clinical Information A. Leg, Left, Left femoral proximal graft Left femoral proximal graft B. Leg, Left, Left distal BK pop graft Left distal BK pop graft 10/02/2024 8:17 AM [facility] Gross Description A. Leg, Left, Left femoral proximal graft. A - Labeled/Fixa tive: Left femoral proximal graft, fresh. Quantity/Siz e: Two, 3.0 x 1.3 x 0.9 cm and 4.5 x 0.8 x 0.2 cm. Tissue Description: Irregular fragments of synthetic vascular graft with embedded suture material. Sections/Pro cessing: No sections submitted, gross diagnosis only sns B. Leg, Left, Left distal BK pop graft. B - Labeled/Fixa tive: Left distal BK pop graft, fresh. Quantity/Siz e: Two, 1.5 x 1.0 x 0.5 cm and 1.7 x 1.2 x 0.6 cm. Tissue Description: Segments of synthetic vascular graft with embedded suture material. Sections/Pro cessing: No sections submitted, gross diagnosis only sns 10/02/2024 8:17 AM [facility] Result Note Routine 10/02/2024 8:17 AM [facility] Grocery Team Member STRUCTURE OF LEFT LOWER LIMB / Unknown 09/28/2024 2:10 PM EST 09/28/2024 4:44 PM EST Comment:Left femoral proxima l graft Biomedical device (physical object) STRUCTURE OF LEFT LOWER LIMB / Unknown 09/28/2024 2:17 PM EST 09/28/2024 4:44 PM EST Comment:Left distal BK pop g raft Hayley Torres MD PATHOLOGY/CYTOLOGY O RDERABLES [facility] [place] [id number] * ELEN, legs, multiple levels (09/28/2024 7:44 AM EST) VB Text Report Department: Vascular Surgery Lab Patient: [id number] (GEOVANNA DIXON) CPT: 98035 Referring Physician: HERMILA SNIDER ?? Phone: Indications: PAD, ? change Diabetes mellitus: Yes Findings: Right ?Pressure (mm Hg) ?? ELEN ??Waveform ?TBI ?? Dorsalis Pedis (Ankle) Artery ?131 ? 1.07 ??Triphasic ? Posterior Tibial (Ankle) Artery ??142 ? 1.16 ??Triphasic ? Great Toe ?94 ? 0.77 ?? Left ? Pressure (mm Hg) ?? ELEN ??Waveform ? TBI ?? Brachial Artery ?122 ? Dorsalis Pedis (Ankle) Artery ?37 ?0.30 ??Monophasic ? Posterior Tibial (Ankle) Artery ??36 ?0.30 ??Monophasic ? Great Toe ?0 ? 0.00 ?? Interpretation: RIGHT: No significant lower extremity arterial occlusive disease identified at rest. Normal ankle/brachial pressure ratios and ankle Doppler waveforms. No significant change compared to previous exam on 07/17/2024. LEFT: Severe lower extremity arterial occlusive disease. Toe waveform is absent. Significant deterioration compared to previous exam on 07/17/2024. Previous ABIs with change from previous value: Date ?RIGHT DP ?? RIGHT PT ?? RT GR TOE ??RT Sec TOE ??1.10 ? 1.17 ? 0.88 ? ---- ??1.10( .00) 1.11(-.06) 0.93(+.05) ---- Current ? 1.07(-.03) 1.16(+.05) 0.77(-.16) ---- Date ?LEFT DP ?LEFT PT ?LT GR TOE LT Sec TOE ??---- ? ---- ? 0.24 ? ---- ??0.55 ? 0.57 ? 0.38(+.14) ---- Current ? 0.30(-.25) 0.30(-.27) 0.00(-.38) ---- Electronically Signed by: ANABEL FINNEY on 2024-09-28 08:59:54 AM [facility] VB Text Report End of Report [facility] 09/28/2024 7:44 AM EST Hermila White APRN VASCULAR ORDERABLE S [facility] * ECHO LMTD W/O CONTRAST W LMTD SPEC DOPP COLOR DOPP (09/28/2024 7:35 AM EST) Anatomical Region Laterality Modality Cardiac Other 09/28/2024 6:56 AM EST Narrative 09/28/2024 9:15 AM EST [address] [place] [address] ? Echocardiogram Report Name: GEOVANNA DIXON JR ?Study Date: 09/28/2024 06:56 AMBP: 132/75 mmHg ? Patient Location: ^IC08^A : 1975 ? Height: 179 cm ? Account: [id number] Age: 49 yrs ? Weight: 108 kg Gender: Male ?BSA: 2.3 m2 Ordering Physician: Kimberli Dickson MD Referring Physician: PATRIC GILES Performed By: Faiza Cole Reason For Study: Vascular graft infection, initial encounter; MRSA bacteremia Interpreting Fellow: Jame Lares. Exam Location: [facility]. Interpretation Summary -Limited study performed for bacteremia - Left ventricle is mildly dilated. LV diastolic diameter 6.2 cm. Wall thickness is normal. Left ventricular systolic function is mildly reduced. Left ventricular ejection fraction is estimated visually at 45-50%. There are segmental wall motion abnormalities in the inferior wall and inferoseptum. -The right ventricle is of normal size. Right ventricular systolic function is normal. - The left atrium is normal. The right atrium is probably normal. - No evidence of vegetation on the aortic, mitral, or tricuspid valve. No significant valvular regurgitation. - Compared to prior echo from 05/29/2024, no significant changes. Procedure Limited - 49478. Doppler - 61519. Color Doppler - 70422. Suboptimal quality. This study is limited because of inadequate apical windows. There is normal sinus rhythm. Left Ventricle Left ventricle is mildly dilated. LV diastolic diameter 6.3 cm. Wall thickness is normal. Left ventricular systolic function is mildly reduced. Left ventricular ejection fraction is estimated visually at 45-50%. There are segmental wall motion abnormalities. Right Ventricle The right ventricle is of normal size. Right ventricular systolic function is normal. Left Atrium The left atrium is normal. The interatrial septum is not well visualized. Right Atrium The right atrium is probably normal in size. Aortic Valve The aortic valve is structurally and functionally normal. The aortic valve is probably trileaflet. There is no evidence for a vegetation on the aortic valve. There is no aortic stenosis. There is no aortic regurgitation. Mitral Valve The mitral valve is structurally and functionally normal. There is no evidence for a vegetation on the mitral valve. There is trace mitral regurgitation. Tricuspid Valve The tricuspid valve is structurally and functionally normal. There is trace tricuspid regurgitation. Pulmonic Valve The pulmonic valve appears to be structurally and functionally normal. There is no vegetation noted on the pulmonic valve. Venous Inferior vena cava is normal in size. Inferior vena cava collapse greater than 50% with respiration. Pericardium/Pleural There is no pericardial effusion. Hemodynamics Pulmonary artery hypertension could not be assessed due to inadequate tricuspid regurgitation jet. Left ventricular diastolic function is indeterminate. ? 2D Measurements ? Volumes ?IVSd: 1.0 cm ? LAV(MOD-bp) Indexed: ?LVIDd: 6.2 cm ?27.7 ml/m2 ?LVIDs: 4.7 cm ?LVPWd: 1.0 cm ?RWT: 0.33 {ratio} ?LV mass(C)d: 263.3 grams ?LV mass(C)dI: 116.5 grams/m2 ?Ao root diam: 3.8 cm ?Ao root diam index: 1.7 Doppler LV V1 VTI: 17.9 cm MV E max luis e: 101.0 cm/sec MV A max luis e: 102.6 cm/sec MV E/A: 0.98 Lat Peak E' Luis E: 13.1 cm/sec E/e' (lat): 7.7 Med Peak E' Luis E: 8.4 cm/sec E/e' (med): 12.0 E/e' Average: 9.9 I ?WMSI = 1.31 ? % Normal = 81 ?Segments ??Size X - Cannot ?? 1 - Normal ?? 2 - ? 3 - Akinetic 4 - ?1-2 ? small Interpret ? Hypokinetic ?Dyskinetic ?? 3-5 ? moderate 5 - ? 6-14 ?large Aneurysmal ?15-16 ?? diffuse Procedure Note David Lomeli MD - 09/28/2024 [address] [place] [address] Echocardiogram Report Name: GEOVANNA DIXON JR Study Date: 406:56 AMBP: 132/75 mmHg Patient Location:[facility]^ : 1975 Height: 179 cm Account: [id number] Age: 49 yrs Weight: 108 kg Gender: Male BSA: 2.3 m2 Ordering Physician: Kimberli Dickson MD Referring Physician: PATRIC GILES Performed By: Faiza Cole Reason For Study: Vascular graft infection, initial encounter; MRSAbacteremia Interpreting Fellow: Jame Lares. Exam Location: [facility]. Interpretation Summary -Limited study performed for bacteremia - Left ventricle is mildly dilated. LV diastolic diameter 6.2 cm. Wallthickness is normal. Left ventricular systolic function is mildly reduced. Leftventricular ejection fraction is estimated visually at 45-50%. There are segmentalwall motion abnormalities in the inferior wall and inferoseptum. -The right ventricle is of normal size. Right ventricular systolicfunction is normal. - The left atrium is normal. The right atrium is probably normal. - No evidence of vegetation on the aortic, mitral, or tricuspid valve.No significant valvular regurgitation. - Compared to prior echo from 05/29/2024, no significant changes. Procedure Limited - 45084. Doppler - 22273. Color Doppler - 06353. Suboptimalquality. This study is limited because of inadequate apical windows. There is normalsinus rhythm. Left Ventricle Left ventricle is mildly dilated. LV diastolic diameter 6.3 cm. Wallthickness is normal. Left ventricular systolic function is mildly reduced. Leftventricular ejection fraction is estimated visually at 45-50%. There are segmentalwall motion abnormalities. Right Ventricle The right ventricle is of normal size. Right ventricular systolic functionis normal. Left Atrium The left atrium is normal. The interatrial septum is not wellvisualized. Right Atrium The right atrium is probably normal in size. Aortic Valve The aortic valve is structurally and functionally normal. The aortic valveis probably trileaflet. There is no evidence for a vegetation on the aorticvalve. There is no aortic stenosis. There is no aortic regurgitation. Mitral Valve The mitral valve is structurally and functionally normal. There is noevidence for a vegetation on the mitral valve. There is trace mitral regurgitation. Tricuspid Valve The tricuspid valve is structurally and functionally normal. There istrace tricuspid regurgitation. Pulmonic Valve The pulmonic valve appears to be structurally and functionally normal.There is no vegetation noted on the pulmonic valve. Venous Inferior vena cava is normal in size. Inferior vena cava collapse greaterthan 50% with respiration. Pericardium/Pleural There is no pericardial effusion. Hemodynamics Pulmonary artery hypertension could not be assessed due to inadequatetricuspid regurgitation jet. Left ventricular diastolic function is indeterminate. 2D Measurements Volumes IVSd: 1.0 cm LAV(MOD-bp)Indexed: LVIDd: 6.2 cm 27.7 ml/m2 LVIDs: 4.7 cm LVPWd: 1.0 cm RWT: 0.33 {ratio} LV mass(C)d: 263.3 grams LV mass(C)dI: 116.5 grams/m2 Ao root diam: 3.8 cm Ao root diam index: 1.7 Doppler LV V1 VTI: 17.9 cm MV E max luis e: 101.0 cm/sec MV A max luis e: 102.6 cm/sec MV E/A: 0.98 Lat Peak E' Luis E: 13.1 cm/sec E/e' (lat): 7.7 Med Peak E' Luis E: 8.4 cm/sec E/e' (med): 12.0 E/e' Average: 9.9 I WMSI = 1.31 % Normal = 81 SegmentsSize X - Cannot 1 - Normal 2 - 3 - Akinetic 4 - 1-2small Interpret Hypokinetic Dyskinetic 3-5moderate 5 - 6-14large Aneurysmal 15-16diffuse Kimberli Dickson MD ECHO ORDERABLES * (ABNORMAL) Hemogram (09/27/2024 5:55 PM EST) Pathologist [facility] White Blood Cell 19.38(H) 4.00 - 9.50 x10(3)/mc L 09/27/2024 6:16 PM EST [facility] Red Blood Cell 3.76(L) 4.58 - 5.54 x10(6)/mc L 09/27/2024 6:16 PM [facility] Hemoglobin 11.0(L) 13.7 - 16.5 g/dL 09/27/2024 6:16 PM [facility] Hematocrit 31.6(L) 40.5 - 48.5 % 09/27/2024 6:16 PM [facility] Mean Cell Volume 84.0 82.9 - 93.1 fL 09/27/2024 6:16 PM [facility] Mean Cell Hemoglobin 29.3 27.5 - 32.1 pg 09/27/2024 6:16 PM [facility] Mean Cell Hemoglobin Concentration 34.8 32.0 - 35.7 g/dL 09/27/2024 6:16 PM [facility] Platelet 322 145 - 357 x10(3)/mc L 09/27/2024 6:16 PM [facility] Mean Platelet Volume 9.4 7.6 - 12.9 fL 09/27/2024 6:16 PM [facility] RDW Standard Deviation 39.4 36.0 - 45.0 fL 09/27/2024 6:16 PM [facility] RDW coefficient of variation 13.0 11.4 - 13.8 % 09/27/2024 6:16 PM [facility] NRBC% auto 0.0 % 09/27/2024 6:16 PM [facility] NRBC Absolute <0.01 <0.01 x10(3)/mc L 09/27/2024 6:16 PM [facility] Blood VENOUS BLOOD SPECIMEN / Unknown Venipuncture / Unknown 09/27/2024 5:55 PM EST 09/27/2024 6:05 PM EST Kimberli Dickson MD HEMATOLOGY ORDERABLE S [facility] [place] [address] * Anaerobic Culture (09/27/2024 4:54 PM EST) Only the most recent of3 resultswithin the time period is included. Anaerobic Culture No anaerobic organisms isolated 10/01/2024 3:54 PM EST [facility] Tissue STRUCTURE OF LEFT THIGH / Unknown 09/27/2024 4:54 PM EST Comment:Infected explanted l eft leg bypass graft Hayley Torres MD MICROBIOLOGY - GENER AL ORDERABLES [facility] [place] [address] * (ABNORMAL) Tissue Culture, Aerobic Only (09/27/2024 4:54 PM EST) Tissue Culture Rare Methicillin Resistant Staphylococcus aureus(A) VITEK 2 METHOD 10/01/2024 1:18 PM EST [facility] Gram Stain Few Neutrophils seen 10/01/2024 1:18 PM EST [facility] Gram Stain No microorganisms seen 10/01/2024 1:18 PM EST [facility] Tissue STRUCTURE OF LEFT THIGH / Unknown 09/27/2024 4:54 PM EST 09/27/2024 5:23 PM EST Comment:Infected explanted l eft leg bypass graft Narrative Organism Antibiotic Method Susceptibility Methicillin Resistant Staphylococcus aureus Ciprofloxacin VITEK 2 METHOD <=0.5 ug/ml: Susceptible Methicillin Resistant Staphylococcus aureus Clindamycin VITEK 2 METHOD >=8.0 ug/ml: Resistant Methicillin Resistant Staphylococcus aureus Gentamicin VITEK 2 METHOD <=0.5 ug/ml: Susceptible Comment:Gentamicin i s not appropriate for monotherapy for gram-positive infections. Methicillin Resistant Staphylococcus aureus Linezolid VITEK 2 METHOD 2.0 ug/ml: Susceptible Methicillin Resistant Staphylococcus aureus Oxacillin VITEK 2 METHOD >=4.0 ug/ml: Resistant Methicillin Resistant Staphylococcus aureus Trimethoprim/Sulfa VITEK 2 METHOD <=10.0 ug/ml: Susceptible Methicillin Resistant Staphylococcus aureus Tetracycline VITEK 2 METHOD <=1.0 ug/ml: Susceptible Comment:Based on tet racycline susceptibility, this organism is considered susceptible to doxycycline. Methicillin Resistant Staphylococcus aureus Vancomycin VITEK 2 METHOD 1.0 ug/ml: Susceptible Hayley Torres MD MICROBIOLOGY - GENER AL ORDERABLES [facility] [place] [address] * CT Lower Extremity w Contrast Left (09/27/2024 9:16 AM EST) WORKSTATION ID [id number] [facility] Anatomical Region Laterality Modality Hip, Leg, Knee, Thigh, Ankle, Foot Left Computed Tomography Impressions 09/27/2024 10:48 AM EST IMPRESSION: 1. ??Interval explant of LEFT femoral bypass graft with 2 open wounds and partial drainage of perigraft abscess. 2. ??A residual deep-seated abscess collection extends from proximal and thigh to proximal calf. This abscess contains air and an irregular enhancing rim. 3. ??No CT findings of osteomyelitis or septic arthritis. Thank you for letting us participate in the care of this patient. ??If you are a health care provider and have any questions regarding this report, please contact the number below. ??For patients who have questions please contact the health career services officer that requested your imaging first. ? Narrative 09/27/2024 10:48 AM EST EXAMINATION: CT LOWER EXTREMITY W CONTRAST LEFT CLINICAL HISTORY: assess for retained fluid collection prior to OR today, entered by ordering service TECHNIQUE: Postcontrast axial CT images of the LEFT pelvis, LEFT hip and LEFT lower extremity [iliac crest to toes] lower extremity, iliac crest were acquired. Sagittal and coronal reformats were created. intravenous contrast: ??110 ml Omnipaque 350. COMPARISON: CT September 26 2024. There is a left femoral bypass graft extending from the left common femoral artery below the inferior margin of the study. ??There is a large abscess surrounding the bypass graft and extending from the left common femoral artery along the entire visualized course of the bypass graft and extending below the inferior margin of the study. ??Findings are consistent with graft infection, but the inferior extent of infection is unknown FINDINGS: OSSEOUS STRUCTURES: No acute fracture, periostitis, pathologic fracture or focal lesion of bone. SOFT TISSUES: 2 open wounds are present. #1 open wound In LEFT/pelvis Interval explant of femoral bypass graft and drainage of the abscess surrounding the graft. There are packings and drains in the open wound which exposes the femoral neurovascular bundle adjacent to surgical plate cameron. The surgical drain travels superficial to the vastus medialis muscle. The abscess fluid in the upper thigh and along the surgical drain are resolved.. A residual loculated the fluid collection traveling along the previous bypass graft tract is approximately 25 x 35 mm diameter. This abscess is wedged between the vastus medialis and adductor Mick muscle. This tracks into the popliteal fossa and contains air and fluid level and a thick and enhancing rim. #2 open wound in medial proximal calf this open wound is located approximately 6 to 7 cm distal to the knee joint line. It drains the distal end of the long deep abscess traveling along the removed bypass graft. Most of the fluid collection in the calf is drained. ABSCESS: The previously noted abscess started from inguinal canal to mid calf. The fluid collection in the inguinal canal and proximal calf is resolved. Only a small sliver of abscess remains in the upper calf. Persistent long segment of deep-seated abscess at 13 cm inferior to the greater trochanter and ends at 7 cm inferior to the knee joint line. JOINTS: LEFT hip joint marginal osteophytes and preserved hip joint space, unchanged LEFT knee joint-normal alignment without effusion or findings of septic arthritis. LEFT ankle joint-normal spacing and alignment. MUSCLES: Normal bulk and density. PELVIS Unchanged fully color catheter in collapsed urinary bladder. Unchanged enlarged LEFT inguinal lymph nodes with a maximal measurement of 12 mm. No free air, free fluid, abscess, enlarged lymph nodes or soft tissue mass. Vessels: Limited evaluation due to phase of contrast administration.. Procedure Note Ignacia Chi MD - 09/27/2024 EXAMINATION: CT LOWER EXTREMITY W CONTRAST LEFT CLINICAL HISTORY: assess for retained fluid collection prior to ORtoday, entered by ordering service TECHNIQUE: Postcontrast axial CT images of the LEFT pelvis, LEFT hip andLEFT lower extremity [iliac crest to toes] lower extremity, iliac crest were acquired. Sagittal and coronal reformats were created. intravenous contrast: 110 ml Omnipaque 350. COMPARISON: CT September 26 2024. There is a left femoral bypass graft extending from the left commonfemoral artery below the inferior margin of the study. There is a large abscess surrounding the bypass graft and extending from the left common femoralartery along the entire visualized course of the bypass graft and extending belowthe inferior margin of the study. Findings are consistent with graftinfection, but the inferior extent of infection is unknown FINDINGS: OSSEOUS STRUCTURES: No acute fracture, periostitis, pathologic fracture or focal lesion ofbone. SOFT TISSUES: 2 open wounds are present. #1 open wound In LEFT/pelvis Interval explant of femoral bypass graft and drainage of the abscesssurrounding the graft. There are packings and drains in the open wound which exposesthe femoral neurovascular bundle adjacent to surgical plate cameron. Thesurgical drain travels superficial to the vastus medialis muscle. The abscess fluid in the upper thigh and along the surgical drain areresolved.. A residual loculated the fluid collection traveling along the previousbypass graft tract is approximately 25 x 35 mm diameter. This abscess is wedgedbetween the vastus medialis and adductor Mick muscle. This tracks into thepopliteal fossa and contains air and fluid level and a thick and enhancing rim. #2 open wound in medial proximal calf this open wound is located approximately 6 to 7 cm distal to the kneejoint line. It drains the distal end of the long deep abscess traveling alongthe removed bypass graft. Most of the fluid collection in the calf isdrained. ABSCESS: The previously noted abscess started from inguinal canal to mid calf. The fluid collection in the inguinal canal and proximal calf is resolved.Only a small sliver of abscess remains in the upper calf. Persistent long segment of deep-seated abscess at 13 cm inferior to thegreater trochanter and ends at 7 cm inferior to the knee joint line. JOINTS: LEFT hip joint marginal osteophytes and preserved hip joint space,unchanged LEFT knee joint-normal alignment without effusion or findings of septic arthritis. LEFT ankle joint-normal spacing and alignment. MUSCLES: Normal bulk and density. PELVIS Unchanged fully color catheter in collapsed urinary bladder. Unchanged enlarged LEFT inguinal lymph nodes with a maximal measurement of12 mm. No free air, free fluid, abscess, enlarged lymph nodes or soft tissuemass. Vessels: Limited evaluation due to phase of contrast administration.. IMPRESSION IMPRESSION: 1. Interval explant of LEFT femoral bypass graft with 2 open wounds andpartial drainage of perigraft abscess. 2. A residual deep-seated abscess collection extends from proximal andthigh to proximal calf. This abscess contains air and an irregular enhancing rim. 3. No CT findings of osteomyelitis or septic arthritis. Thank you for letting us participate in the care of this patient. If youare a health care provider and have any questions regarding this report,please contact the number below. For patients who have questions please contactthe health career services officer that requested your imaging first. Rose Wright UNDERGROUND UTILITY LOCATOR IMG CT ORDERABL ES * (ABNORMAL) MRSA PCR Screen (09/27/2024 7:51 AM EST) MRSA PCR Detected(A ) 09/27/2024 11:56 AM EST [facility] Swab BOTH ANTERIOR NARES / Unknown Non Blood Collection / Unknown 09/27/2024 7:51 AM EST 09/27/2024 8:05 AM EST Narrative [facility] - 09/27/2024 11:56 AM EST This test was performed using the Xpert MRSA NxG test kit and is run on the [employer] GeneXpert Dx System. This test is cleared by the U.S. Food and Drug Administration for clinical use and its performance characteristics have been verified by the [facility] at [facility]. Kimberli Dickson MD MOLECULAR ORDERABLES [facility] [place] [address] * (ABNORMAL) Sonicated Tissue/Implant Culture (09/26/2024 5:16 PM EST) Sonicated Tissue/Implan t Culture Methicillin Resistant Staphylococcus aureus(A) VITEK 2 METHOD 09/30/2024 1:49 PM EST [facility] Comment: isolated from broth culture. Susceptibilities previously reported. Vascular Graft STRUCTURE OF LEFT LOWER LIMB / Unknown Non Blood Collection / Unknown 09/26/2024 5:16 PM EST 09/26/2024 5:45 PM EST Kimberli Dickson MD MICROBIOLOGY - GENER AL ORDERABLES [facility] [place] [address] * (ABNORMAL) Abscess/Wound Aspirate Culture, Aerobic Only (09/26/2024 5:02 PM EST) Only the most recent of2 resultswithin the time period is included. Abscess/Wound Aspirate Culture Many Methicillin Resistant Staphylococcus aureus(A) VITEK 2 METHOD 09/30/2024 1:37 PM EST [facility] Gram Stain Many neutrophils(A) 09/30/2024 1:37 PM EST [facility] Gram Stain Many Gram positive cocci(A) 09/30/2024 1:37 PM EST [facility] Abscess STRUCTURE OF LEFT KNEE REGION / Unknown Non Blood Collection / Unknown 09/26/2024 5:02 PM EST Comment:Left Below Knee popl iteal fluid Please perform Gram stain if not included in order Narrative Organism Antibiotic Method Susceptibility Methicillin Resistant Staphylococcus aureus Ciprofloxacin VITEK 2 METHOD <=0.5 ug/ml: Susceptible Methicillin Resistant Staphylococcus aureus Clindamycin VITEK 2 METHOD >=8.0 ug/ml: Resistant Methicillin Resistant Staphylococcus aureus Gentamicin VITEK 2 METHOD <=0.5 ug/ml: Susceptible Comment:Gentamicin i s not appropriate for monotherapy for gram-positive infections. Methicillin Resistant Staphylococcus aureus Linezolid VITEK 2 METHOD 2.0 ug/ml: Susceptible Methicillin Resistant Staphylococcus aureus Oxacillin VITEK 2 METHOD >=4.0 ug/ml: Resistant Methicillin Resistant Staphylococcus aureus Trimethoprim/Sulfa VITEK 2 METHOD <=10.0 ug/ml: Susceptible Methicillin Resistant Staphylococcus aureus Tetracycline VITEK 2 METHOD <=1.0 ug/ml: Susceptible Comment:Based on tet racycline susceptibility, this organism is considered susceptible to doxycycline. Methicillin Resistant Staphylococcus aureus Vancomycin VITEK 2 METHOD 1.0 ug/ml: Susceptible Hayley Torres MD MICROBIOLOGY - GENER AL ORDERABLES [facility] [place] [address] * (ABNORMAL) Blood Gas, Venous POC (09/26/2024 3:28 PM EST) pH, Venous 7.43(H) 7.32 - 7.42 09/26/2024 3:30 PM EST [facility] PCO2, Venous 41 38 - 58 mmHg 09/26/2024 3:30 PM EST [facility] PO2, Venous 18 16 - 65 mmHg 09/26/2024 3:30 PM [facility] Bicarbonate, Venous 26.6 22 - 31 mmol/L 09/26/2024 3:30 PM EST [facility] Base Excess, Venous 2.3 1.9 - 4.5 mmol/L 09/26/2024 3:30 PM [facility] Hemoglobin, Venous 12.4(L) 13.7 - 16.5 g/dL 09/26/2024 3:30 PM EST [facility] Oxyhemoglobin, Venous 26.8 % 09/26/2024 3:30 PM [facility] Carboxyhemoglobin , Venous 1.0 % 09/26/2024 3:30 PM [facility] Comment: Nonsmokers: 0.5-1.5% COHB ?? Smokers: Variable ??but usually less than 10% ?? Toxic: 20-30% COHB ?? Lethal: Greater than 60% COHB Methemoglobin, Venous 0.4 <=1.5 % 09/26/2024 3:30 PM EST [facility] Sodium, Venous 127(L) 135 - 145 mmol/L 09/26/2024 3:30 PM EST [facility] Potassium, Venous 3.3(L) 3.5 - 5.0 mmol/L 09/26/2024 3:30 PM EST [facility] Chloride, Venous 91(L) 98 - 107 mmol/L 09/26/2024 3:30 PM EST [facility] Glucose, Venous 259(H) 65 - 199 mg/dL 09/26/2024 3:30 PM EST [facility] Comment:Glucose Concentratio n >=200 mg/dL plus symptoms is consistent with Diabetes Mellitus. Lactate, Venous 2.2 0.5 - 2.2 mmol/L 09/26/2024 3:30 PM [facility] Ionized Calcium, Venous 1.09(L) 1.15 - 1.33 mmol/L 09/26/2024 3:30 PM EST [facility] Blood VENOUS BLOOD SPECIMEN / Unknown 09/26/2024 3:28 PM EST 09/26/2024 3:30 PM EST Kimberli Dickson MD POINT OF CARE TEST O RDERABLES [facility] [place] [address] * ABORH RECHECK (PATIENT HISTORY FOUND) (09/26/2024 2:39 PM EST) ABORH Recheck Progress Complete 09/26/2024 5:01 PM EST [facility] Blood VENOUS BLOOD SPECIMEN / Unknown Venipuncture / Unknown 09/26/2024 2:39 PM EST 09/26/2024 2:56 PM EST Kimberli Dickson MD BLOOD BANK LAB ORDER RANDELL [facility] [place] [address] * APTT (09/26/2024 2:39 PM EST) Partial Thromboplastin Time 36 25 - 37 sec 09/26/2024 3:09 PM EST [facility] Comment: The PTT is NOT appropriate for heparin monitoring. Use the Anti-Xa level for heparin monitoring (HEP UFH) or LMWH monitoring (HEP LMW). A PTT less than 37 seconds generally indicates adequate hemostasis. Blood VENOUS BLOOD SPECIMEN / Unknown Venipuncture / Unknown 09/26/2024 2:39 PM EST 09/26/2024 2:50 PM EST Kimberli Dickson MD HEMATOLOGY ORDERABLE S Performing Organization Address [facility] Co de Phone Number [facility] [place] [address] * (ABNORMAL) Prothrombin Time (09/26/2024 2:39 PM EST) Prothrombin Time 21.6(H) 9.4 - 12.5 sec 09/26/2024 3:09 PM EST [facility] International Normalization Ratio 1.9 <=4.9 09/26/2024 3:09 PM EST [facility] Comment: An INR < 2.0 indicates adequate procoagulant activity for hemostasis in most patients without underlying bleeding disorders, though the INR may not adequately reflect hemostatic capacity in patients with liver disease and synthetic impairment. The recommended target INR range for therapeutic anticoagulation is 2.0 - 3.0 for most applications, though lower and higher ranges may be appropriate depending on clinical circumstances. Blood VENOUS BLOOD SPECIMEN / Unknown Venipuncture / Unknown 09/26/2024 2:39 PM EST 09/26/2024 2:50 PM EST Kimberli Dickson MD HEMATOLOGY ORDERABLE S Performing Organization Address [facility] Co de Phone Number [facility] [place] [address] * (ABNORMAL) Fibrinogen (09/26/2024 2:39 PM EST) Fibrinogen >1,000(H) 200 - 393 mg/dL 09/26/2024 3:09 PM EST [facility] Comment: A fibrinogen level >100 mg/dL is adequate for hemostasis in most patients without underlying bleeding disorders. Blood VENOUS BLOOD SPECIMEN / Unknown Venipuncture / Unknown 09/26/2024 2:39 PM EST 09/26/2024 2:50 PM EST Kimberli Dickson MD HEMATOLOGY ORDERABLE S [facility] [place] [address] * Type and screen ([facility]P/BABITA) (09/26/2024 2:39 PM EST) Pathologist [facility] ABORH Type A POSITIVE 09/26/2024 3:45 PM EST [facility] PATIENT HISTORY Found 09/26/2024 3:45 PM EST [facility] Expires at [id number] on: 09/29/2024 09/26/2024 3:45 PM EST [facility] ANTIBODY SCREEN AUTOMATED Negative 09/26/2024 3:45 PM EST [facility] T&S only valid at [facility] 09/26/2024 3:45 PM EST [facility] Blood VENOUS BLOOD SPECIMEN / Unknown Venipuncture / Unknown 09/26/2024 2:39 PM EST 09/26/2024 2:56 PM EST Narrative [facility] - 09/26/2024 3:45 PM EST This Type and Screen result is only valid at the [facility] Kimberli Dickson MD BLOOD BANK LAB ORDER RANDELL [facility] [place] [address] * (ABNORMAL) Hepatic Function Panel (09/26/2024 2:39 PM EST) [facility] Albumin 3.1(L) 3.2 - 5.2 g/dL 09/26/2024 4:23 PM EST [facility] Aspartate Aminotransferase 16 <=39 unit/L 09/26/2024 4:23 PM EST [facility] Alanine Aminotransferase 14 0 - 55 unit/L 09/26/2024 4:23 PM EST [facility] Alkaline Phosphatase 160(H) 40 - 130 unit/L 09/26/2024 4:23 PM EST [facility] Bilirubin, Total 0.4 <=1.3 mg/dL 09/26/2024 4:23 PM EST [facility] Bilirubin, Direct 0.2 0.0 - 0.3 mg/dL 09/26/2024 4:23 PM EST [facility] Protein, Total 7.0 6.1 - 8.0 g/dL 09/26/2024 4:23 PM EST [facility] Blood VENOUS BLOOD SPECIMEN / Unknown Venipuncture / Unknown 09/26/2024 2:39 PM EST 09/26/2024 2:50 PM EST Kimberli Dickson MD CHEMISTRY ORDERABLES Performing Organization Address City/State/[facility] Co de Phone Number [facility] [place] [address] * Request For 2nd Read CT Lower Extremity (09/26/2024 1:50 PM EST) WORKSTATION ID [id number] [facility] Anatomical Region Laterality Modality Hip, Leg, Knee, Thigh, Ankle, Foot SO Impressions 09/26/2024 3:01 PM EST 1. ??There is a left femoral bypass graft extending from the left common femoral artery below the inferior margin of the study. ??There is a large abscess surrounding the bypass graft and extending from the left common femoral artery along the entire visualized course of the bypass graft and extending below the inferior margin of the study. ??Findings are consistent with graft infection, but the inferior extent of infection is unknown. 2. ??Phase of contrast is not optimized to evaluate the patency of the left femoral bypass graft. ??There appears to be at least some degree of thrombus formation within the graft at multiple sites. ??Since the bypass graft also extends below the inferior margin of the study, the graft is incompletely evaluated. 3. ??Multiple enlarged left inguinal and left external iliac lymph nodes are presumed to be reactive in the context of left femoral graft infection. Thank you for letting us participate in the care of this patient. ??If you are a health care provider and have any questions regarding this report, please contact the number below. ??For patients who have questions please contact the health career services officer that requested your imaging first. ? Electronically signed by: Lisette Bruno MD, [facility] ([phone]), at 09/26/2024 3:01 PM Narrative 09/26/2024 3:01 PM EST EXAMINATION: REQUEST FOR 2ND READ CT LOWER EXTREMITY CLINICAL HISTORY: Pt s/p LLE femoral-below knee popliteal bypass with PTFE graft, c/f infection surrounding graft, en route to [facility] for possible vascular surgery intervention; Sending Institution [facility]; Date of exam [id number]; I believe a reinterpretation of this exam may alter care of Patient. Yes (as entered by ordering provider in the order requisition) TECHNIQUE: CT of the bilateral femurs was performed without IV contrast contrast. ??Coronal and sagittal reformats of each femur was performed. ??This study was performed in an outside facility, and images were submitted for outside film review. COMPARISON: CT angiogram of the bilateral legs July 14, 2024 FINDINGS: Left: There is a bypass graft from the left common femoral artery extending below the inferior margin of the study. ??There is a soft tissue fluid and gas collection extending from the common femoral artery down to the most inferior margin of the study and extending below the inferior margin of the study, consistent with an abscess surrounding the bypass graft, consistent with graft infection. The phase of contrast is not optimized to evaluate the patency of the graft. There are some sites where there appears to be at least some degree of thrombus formation within the graft, for example on series 3, image 8 and 641, 652, 649, 832. No other rim-enhancing fluid collection is seen. No knee joint effusion. No hip joint effusion. ??Normal alignment of the left hip. ??Incomplete imaging of the left knee. ??No acute fracture. ??No destructive bone lesion. The quadriceps tendon is intact. There are multiple enlarged left inguinal and left external iliac lymph nodes. Right: Normal bulk and attenuation of the visualized muscles. ??No rim-enhancing soft tissue collection. Normal alignment of the right hip. ??No right hip joint effusion. ??Incompletely imaged right knee. ??The right knee joint effusion. The quadriceps tendon is intact. ??After sclerotic calcification of the right common femoral artery and the right superficial femoral artery. Other findings: There are bilateral vasectomy clips. Procedure Note SinLisette MD - 09/26/2024 EXAMINATION: REQUEST FOR 2ND READ CT LOWER EXTREMITY CLINICAL HISTORY: Pt s/p LLE femoral-below knee popliteal bypass withPTFE graft, c/f infection surrounding graft, en route to [facility] for possiblevascular surgery intervention; Sending Institution [facility]; Date of exam [id number]; Ibelieve a reinterpretation of this exam may alter care of Patient. Yes (as enteredby ordering provider in the order requisition) TECHNIQUE: CT of the bilateral femurs was performed without IV contrast contrast.Coronal and sagittal reformats of each femur was performed. This study wasperformed in an outside facility, and images were submitted for outside film review. COMPARISON: CT angiogram of the bilateral legs July 14, 2024 FINDINGS: Left: There is a bypass graft from the left common femoral artery extendingbelow the inferior margin of the study. There is a soft tissue fluid and gascollection extending from the common femoral artery down to the most inferior marginof the study and extending below the inferior margin of the study, consistentwith an abscess surrounding the bypass graft, consistent with graft infection. The phase of contrast is not optimized to evaluate the patency of thegraft. There are some sites where there appears to be at least some degree ofthrombus formation within the graft, for example on series 3, image 8 and 641, 652,649, 832. No other rim-enhancing fluid collection is seen. No knee joint effusion. No hip joint effusion. Normal alignment of the left hip. Incompleteimaging of the left knee. No acute fracture. No destructive bone lesion. The quadriceps tendon is intact. There are multiple enlarged left inguinal and left external iliac lymphnodes. Right: Normal bulk and attenuation of the visualized muscles. Norim-enhancing soft tissue collection. Normal alignment of the right hip. No right hip joint effusion.Incompletely imaged right knee. The right knee joint effusion. The quadriceps tendon is intact. After sclerotic calcification of theright common femoral artery and the right superficial femoral artery. Other findings: There are bilateral vasectomy clips. IMPRESSION 1. There is a left femoral bypass graft extending from the left commonfemoral artery below the inferior margin of the study. There is a large abscess surrounding the bypass graft and extending from the left common femoralartery along the entire visualized course of the bypass graft and extending belowthe inferior margin of the study. Findings are consistent with graftinfection, but the inferior extent of infection is unknown. 2. Phase of contrast is not optimized to evaluate the patency of theleft femoral bypass graft. There appears to be at least some degree ofthrombus formation within the graft at multiple sites. Since the bypass graftalso extends below the inferior margin of the study, the graft isincompletely evaluated. 3. Multiple enlarged left inguinal and left external iliac lymph nodesare presumed to be reactive in the context of left femoral graft infection. Thank you for letting us participate in the care of this patient. If youare a health care provider and have any questions regarding this report,please contact the number below. For patients who have questions please contactthe health career services officer that requested your imaging first. Electronically signed by: Lisette Bruno MD, [facility]([phone]), at 09/26/2024 3:01 PM Kimberli EL OUTSIDE INTERPRE TATION ORDERABLES * Film Library- Storage Only CT Lower Extremity (09/26/2024 10:21 AM EST) Only the most recent of2 resultswithin the time period is included. Narrative RAD - 09/26/2024 10:21 AM EST This exam is auto-finalizing. It's purpose is for storage only. Kimberli EL FILM LIBRARY ORD ERABLES [facility] Andrez ND * Unilat Bypass Graft Assess (08/28/2024 12:55 PM EDT) VB Text Report Department: Vascular Surgery Lab Patient: [id number] (GEOVANNA DIXON) CPT: 13116 Referring Physician: HERMILA SNIDER ?? Phone: Indications: [...] White APRN VASCULAR ORDERABLE S VASCUBASE * Scan Doc: Implantable Devices (08/01/2024 12:00 AM EDT) Narrative 08/01/2024 12:00 AM EDT Ordered by an unspecified provider. Scanning Provider MEDIA MGR SCAN EXT O RDR/RSLT * HDL/Cholesterol Profile (07/18/2024 3:33 AM EDT) Cholesterol, Total 114 mg/dL 07/18/2024 4:50 AM EDT [facility] Comment: Desirable: < 200 mg/dL Borderline High: 200 - 239 mg/dL High: > or = 240 mg/dL HDL Cholesterol 38 mg/dL 4:50 AM EDT [facility] Comment:Males: High Risk: <4 0 mg/dL Non-HDL Cholesterol 76 mg/dL 07/18/2024 4:50 AM EDT [facility] Comment: Desirable: <130 mg/dL Above Desirable: 130-159 mg/dL Borderline High: 160-189 mg/dL High: 190-219 mg/dL Very High: > or = 220 mg/dL Blood VENOUS BLOOD SPECIMEN / Unknown IP Care Team Draw / Unknown 07/18/2024 3:33 AM EDT 07/18/2024 4:21 AM EDT [facility] - 07/18/2024 4:50 AM EDT It [...] ACC/AHA Guidelines (most recently Johann et al. [facility] 08/11/22): * For individuals with atherosclerotic [...] Garcia MD CHEMISTRY ORDERABLES Performing Organization Address [facility] de Phone Number [facility] [place] [address] * Microalbumin, urine, random (01/06/2012 9:03 PM EST) Creatinine, Urine 136 mg/dL CE RNER MILLENNIUM Albumin, Urine 14.4 mg/L CERNE R MILLENNIUM Albumin / Creatinin Ratio, Urine 11 mcg/mg Cr CERNER MILLENNIUM Comment: Reference Range* Random collection (mcg/mg creatinine) Normal ?<30 Microalbuminuria ?? 30 - 300 Clinical Albuminuria ?? >300 *[place] [employer]. Diabetic Nephropathy. Diabetes Care 1997;(Suppl 1):S24-S27 Exercise within 24 hour, infection, fever, CHF, marked hyperglycemia, and marked hypertension may elevate urinary albumin excretion over baseline values. Urine specimen (specimen) 01/06/2012 9:03 PM EST 01/06/2012 10:28 PM EST Narrative Resulting Agency Comment Spec In Lab Alfonso Morales MD URINE ORDERABLES Performing Organization Address [facility] de Phone Number CERNER MILLENNIUM from Last 3 Months or Most Recently Relevant to Health Maintenance Advance Directives Documents on File Type Date Recorded Patient Accountant Supervisor Expl anation Personal Accountant Supervisor 09/20/2024 2:23 PM cony gabriel * Attempt Cardiopulmonary Resuscitation - Inpatient (Latest Code Status on File) Date Activated Date Inactivated Comments 09/26/2024 2:31 PM 10/10/2024 7:17 PM Question Answer Comments Code Status decision made by: Patient * Attempt Cardiopulmonary Resuscitation - Inpatient Date Activated Date Inactivated Comments 09/26/2024 2:19 PM 09/26/2024 2:31 PM Question Answer Comments Code Status decision made by: Patient * Attempt Cardiopulmonary Resuscitation - Inpatient Date Activated Date Inactivated Comments 08/01/2024 11:36 [...] Patient Content of discussion: CPR, intubation OK Care Teams Hand Roller Engraver Relationship Specialty Start Date End Date Charles Romero PA [facility] [place] [address] PCP - General Internal Medicine 09/18/24
--- OUTSIDE RECORDS SUMMARY | 2024-10-20 12:37 | XMS_ITS | Encounter Summary ---
Author Organization [facility] Address [facility] [place] [address] Care Team Providers Care Fast Food Crew Lead Name Role Phone Charles Romero Primary Care Provider + Encounter Details Date Type Department Care Team (Late st Contact Info) Description 10/19/2024 Orders Only [place] [address] Isabela Hayward APRN [facility] [place] [address] Vascular graft infection, initial encounter Social History Tobacco Use Types Packs/Day Years Used Date Smoking Tobacco: Every Day Cigarettes 1 25 Started: 12/28/1986; Last attempted to quit: 12/28/2011 Smokeless Tobacco: Never Comments:Quit 09/2024 Alcohol Use Standard Drinks/Week Comments No 0 (1 standard drink = 0.6 oz pur e alcohol) [facility] Utilities Answer Date Recorded In the past 12 months has [employer] electric, gas, oil, or water company threatened [...] time in the past 12 m [facility], were you homeless or living in a long term (including now)? No 09/27/2024 IPV Inpatient Questions [...] 10/23/2024 1:00 PM EST Appointment XRay at [address] [place] [address] Isabela Hayward APRN [facility] [place] [address] 11/09/2024 1:30 PM EST Office Visit [place] [phone] Isabela Hayward APRN [facility] [place] [address] 11/10/2024 10:00 AM EST Office Visit [place] [phone] Dai Whitman APRN 11/21/2024 2:15 PM EST Office [place] [address] Dayanara Grover MD [facility] [place] [address] Scheduled Orders Name Type Priority Associated Diagnoses Orde r Schedule XR PICC Placement Over 5 Years with Imaging Guidance (IV Team) Imaging Routine Vascular graft infection, initial encounter Expected: 10/23/2024, Expires: 11/19/2024 Place PICC Line: Contact Vascular Access Page [phone] Procedures Routine Vascular graft infection, initial encounter Expected: 10/23/2024, Expires: 11/19/2024 documented as of this encounter Visit Diagnoses Diagnosis Vascular graft infection, initial encounter documented in this encounter Care Teams Fast Food Crew Lead Relationship Specialty Start Date End Date Charles Romero [place] [address] [place] [address] PCP - General Internal Medicine 09/18/24 documented as of this encounter
--- OUTSIDE RECORDS SUMMARY | 2024-10-20 12:37 | XMS_ITS | Encounter Summary ---
Author Organization [facility] [place] [address] Care Team Providers Care Operations Team Leader Name Role Phone Charles Romero Primary Care Provider + Encounter Details Date Type Department Care Team (Latest Contact Info) Description 10/19/2024 11:30 AM EST Clinical Support [place] [phone] Vascular graft infection, initial encounter [T82.7XXA] Social History Tobacco Use Types Packs/Day Years Used Date Smoking Tobacco: Every Day Cigarettes 1 25 Started: 12/28/1986; Last attempted to quit: 12/28/2011 Smokeless Tobacco: Never Comments:Quit 09/2024 Alcohol Use Standard Drinks/Week Comments No 0 (1 standard drink = 0.6 oz pur e alcohol) [facility] Utilities Answer Date Recorded In the past 12 months has e [employer], gas, oil, or water [employer] threatened to shut off services in your [...] any time in the past 12 m [facility], were you homeless or living [...] 10/23/2024 1:00 PM EST Appointment XRay at [address] [place] [phone] Isabela Hayward, [facility] [place] [address] 11/09/2024 1:30 PM EST Office [place] [phone] Isabela Hayward, [facility] [place] [address] 11/10/2024 10:00 AM EST Office [place] [phone] Dai Whitman APRN 11/21/2024 2:15 PM EST Office [place] [address] Dayanara Grover MD [facility] [place] [address] documented as of this encounter Visit Diagnoses Diagnosis Vascular graft infection, initial encounter [T82.7XXA] documented in this encounter Care Teams Operations Team Leader Relationship Specialty Start Date End Date Charles Romero PA [facility] [place] [address] PCP - General Internal Medicine 09/18/24 documented as of this encounter
--- OUTSIDE RECORDS SUMMARY | 2024-10-20 12:37 | XMS_ITS | Encounter Summary ---
Author Organization [facility] [place] [address] Care Team Providers Care Room Service Manager Name Role Phone Charles Romero Primary Care Provider + Encounter Details Date Type Department Care Team (Late st Contact Info) Description 10/19/2024 10:00 AM EST Office Visit [place] [address] Dai Whitman APRN Critical limb ischemia of left lower extremity; Infection of vascular bypass graft, sequela Social History Tobacco Use Types Packs/Day Years Used Date Smoking Tobacco: Every Day Cigarettes 1 25 Started: 12/28/1986; Last attempted to quit: 12/28/2011 Smokeless Tobacco: Never Tobacco Cessation:Ready to Q uit: Not Asked; Counseling Given: Not Answered Comments:Quit 09/2024 Alcohol Use Standard Drinks/Week Comments No 0 (1 standard drink = 0.6 oz pur e alcohol) [facility] Utilities Answer Date Recorded In the past [...] in the past [address] [facility], were you homeless or living in a long-term (including now)? No 09/27/2024 DH IPV Inpatient [...] Sign Reading Time Taken Comments Blood Pressure - - Pulse - - Temperature - - Respiratory Rate - - Oxygen Saturation - - Inhaled Oxygen Concentration - - Weight 103.4 kg (228 lb) 10/19/2024 9:48 AM EST Height 179.1 cm (5' 10.5) 10/19/2024 9:48 AM ES T Body Mass Index 32.25 10/19/2024 9:48 AM EST documented in this encounter Progress Notes * Dai Whitman, ASSISTANT FINANCE DIRECTOR - 10/19/2024 10:00 AM EST Images from the original note were not included. Vascular Follow-Up Reason for Visit: hospital check HPI: Lux Llanos Zack Winter is a 49 y.o. male with PMH of HTN, HLD, NSTEMI, CAD s/p CABG (12/2011), DM, obesity, PAD s/p L iliofemoral endart and L fem-BK pop bypass and L 2nd toe amputation who was transferred from [facility] given concern for infected left fem-BK popliteal PTFE bypass. At the OSH, he underwent CT LLE with contrast that demonstrated fluid surrounding the graft and he was initiated on vancomycin and cefepime. He was noted to have a lactate of 3.6. He states that he continues to take aspirin as well as Xarelto for bypass Patient denies CVA or TIA since last clinic appointment. Denies episodes of unilateral extremity weakness, facial droop, acute change in vision or speech. No complaint of UE pain, tissue loss or fatigue. Denies BLE claudication, rest pain, He has incision to right RLE. Denies chest pain and dyspneapresently. Prior Vascular Hx: 07/19/2024: Left 2nd toe amputation 08/01/2024: Left iliofemoral endarterectomy and left femoral to below-knee popliteal artery bypass with 7mm ringed PTFE 09/26/24: Explant of infected LEFT MARKET RESEARCH ANALYST to below-knee popliteal artery PTFE bypass graft, Incision and drainage, and washout of LEFT groin, medial thigh, and medial calf wounds ([place]) 09/27/24: Evacuation of abscess in left posterior thigh compartment via AK popliteal incision. Irrigation of left groin and calf incision sites ([place]) 09/28/24: LEFT great saphenous vein harvest, Removal of left common femoral and below knee popliteal artery PFTE graft willard and common femoral bovine pericardial patch, Vein patch angioplasty of LEFTcommon femoral artery and below-knee popliteal artery, Rotational sartorius muscle flap placement over LEFT femoral artery, Excisional debridement, washout, and LEFT groin wound VAC placement ([place]) 09/29/24: EXPLORATION W\O SURGICAL REPAIR, Left FEMORAL ARTERY ,DEBRIDEMENT SKIN, SUBCU, MUSCLE, LOWER EXTREMITY ([place]) 10/02/24: LLE DEBRIDEMENT ([place]) 10/04/24: LLE DEBRIDEMENT ([place]) Atherosclerotic RF: DM (+) HTN (+) CAD (-) CHF (-) HLD (+) CVA (-) Tobacco (-) Problem List: Patient Active Problem List Diagnosis Code HTN (hypertension) I10 Hyperlipidemia E78.5 Depression F32.A Narcolepsy G47.419 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 (SVG to PDA closed 08/2013) I25.10 NSTEMI (non-ST elevated myocardial infarction) I21.4 Diabetes mellitus E11.9 Obesity E66.9 Critical limb ischemia of left lower extremity I70.222 Peripheral artery disease I73.9 PAD (peripheral artery disease) I73.9 Vascular graft infection, initial encounter T82.7XXA Medications: Current Outpatient Medications on File Prior to Visit Medication Sig Dispense Refill venlafaxine (EFFEXOR) 75 mg tablet Take 225 mg by mouth daily. insulin lispro (humaLOG KwikPen) 100 unit/mL Insulin [...] - See Instructions). FLUSH PROTOCOL WITH MEDICATIONS (SAS): Before med infusion: flush with NS 10 [...] 3 times daily. Use as instructed Indications: [id number] each 1 FreeStyle Lancets 28 gauge Misc [...] 10 mg by mouth every 8 hours. No current facility-administered medications on file prior to visit. Review of Systems: All other ROS negative except as noted in HPI. Physical Exam: Ht 179.1 cm (5' 10.5) Wt 103.4 kg (228 lb) BMI 32.25 kg/m?? GEN: Alert and appears stated age. Cooperative. In NAD. HEENT: Normocephalic and atraumatic. CV: RRR. S1/S2 present. Pulm: Clear to auscultation bilaterally. Abd: No palpable aortic pulse or abdominal mass. Soft, non-distended, non-tender to palpation. Skin: Color, texture, turgor normal. No rashes or lesions. Neuro: No gross sensory or motor abnormality. Extremities: Bilateral UE and LE warm and pink. No edema. No wounds. Vascular Exam: Femoral right 2/2, Left non palpable due to wound location. Radial 2/2, DP/PT pulse + by doppler LLE incision present x 4 Left Groin Left medial leg *Left medial thigh incision picture did not save Studies: No results found for this or any previous visit (from the past 72 hour(s)). Assessment/Plan: 49 y.o. male DM, obesity, PAD s/p L iliofemoral endart and L fem-BK pop bypass andL 2nd toe amputation who was transferred from [facility] given concern for infected left fem-BK poplitealPTFE bypass. HE was admitted from [facility] for concern for infection and underwent multiple debridements. He was discharged home with VNA with OPAT and wound vac therpay. There area no s/s of infection noted on exam today, the wounds are beefy red with granulation tissue present, the distal calf wound has smooth pink tissue, I will apply the wound vac to this area as well so that the wound vac can stimulate granulation tissue and manage exudate. There was minimal pain during the dressing change. The wound to the left upper thigh and left groin were bridged together, the wounds to the left lower thigh and left medial calf were bridged together. There were a totalof 7 pieces of black foam that were used for the 4 incision/wound sites. Negative pressure wound therapy was resumed at - 125mmHg, excellent seal was obtained. Negative pressure wound therapy dressing was applied as follows: Apply Skin prep to the periwound skin. 3 pieces of black were removed from the wound bed. 7 pieces of black foam, were applied to the 4 medial LLE and bridged together Cover kaelyn-wound skin were covered with thin film drape. Cut a quarter size hole in the thin film drape over the sponge and apply trac pad over the hole. Attach Trac pad tubing to the canister tubing, and set suction at 125 mmHg continuous suction. Be sure Excellent seal is obtained Dai Whitman APRN Section [facility] Wound Care orders/instructions LLE Negative pressure wound therapy dressing was applied as follows: Apply Skin prep to the periwound skin. 3 pieces of black were removed from the wound bed. The incisions were pictured framed with drape 7 pieces of black foam, were applied to the 4 medial LLE and bridged together Cover kaelyn-wound skin were covered with thin film drape. Cut a quarter size hole in the thin film drape over the sponge and apply trac pad over the hole. Attach Trac pad tubing to the canister tubing, and set suction at 125 mmHg continuous suction. Be sure Excellent seal is obtained Food and Nutrition Services Nutrition for Wound Healing It is very important to eat more protein, calories, vitamins and minerals when you have wounds or are recovering from surgery. During this time, your body requires more nutrition as it works hard to heal and fight infection. Calories In order for your body to heal wounds,you may need to eat more. Talk to your dietitian about how many calories you should be eating during this time. Protein Your body needs extra protein in order to heal and make new tissue. Great sources of protein include: Cottage cheese Eggs Fish Legumes Milk Meat Nuts Poultry Soy Yogurt Be sure to include at least one protein source each time you eat. Fluids Good hydration is also important for healing wounds. Include water or non sugary drinks in your diet, unless your doctor tells you to limit your fluid intake. Blood Sugar If you have diabetes, it is very important to control your blood sugar. This can help speed-up wound healing and lower your risk of infection. Vitamins and Minerals Certain vitamins and minerals can help build new tissue and maintain healthy skin. Eating a healthyand balanced diet helps to provide enough of these vitamins and minerals. Examples of these foods include: Vitamin A Apricot Broccoli Cantaloupe Carrots Eggs Kale Liver Spinach Sweet potato Papaya Pumpkin Winter Squash Vitamin C Strawberries Bok Ryan Broccoli [place] sprouts Cabbage Kiwi Zinc Beans Eggs Fish Lentils Milk Oranges Papaya Sweet saucedo peppers Tomatoes Nuts and seeds Poultry Red meat Seafood Be sure to talk with your doctor before taking any supplements or alternative medicine. Please report to the Emergency Department if you develop signs/symptoms of infection, this may include the following: Fever Sweats Chills Nausea, Vomiting or Diarrhea: general malaise Spiking Blood Glucose levels, unprovoked Around the wound site: Redness Warmth Purulent drainage Malodor documented in this encounter Plan of Treatment Upcoming Encounters Date Type Department Care Team (Late st Contact Info) Description 10/23/2024 1:00 PM EST Appointment XRay at [address] [place] [address] Isabela Hayward, RESHMA [facility] [place] [address] 11/09/2024 1:30 PM EST Office Visit Infectious Disease at [place] [phone] Isabela Hayward, [facility] [place] [address] 11/10/2024 10:00 AM EST Office Visit Vascular Surgery at [place] [phone] Dai Whitman APRN 11/21/2024 2:15 PM EST Office Visit [place] [phone] Dayanara Grover MD [facility] [place] [address] documented as of this encounter Visit Diagnoses Diagnosis Critical limb ischemia of left lower extremity Infection of vascular bypass graft, sequela documented in this encounter Care Teams Room Service Manager Relationship Specialty Start Date End Date Charles Romero PA [facility] [place] [address] PCP - General Internal Medicine 09/18/24 documented as of this encounter
--- OUTSIDE RECORDS SUMMARY | 2024-10-20 12:39 | XMS_ITS | Encounter Summary ---
Author Organization [facility] Address [facility] [place] [address] Care Team Providers Care Nurses Director Name Role Phone Charles Romero Primary Care Provider + Encounter Details Date Type Department Care Team (Late st Contact Info) Description 10/07/2024 Notes [place] [address] Amaya Hernandez MD [facility] [place] [address] Social History Tobacco Use Types Packs/Day Years Used Date Smoking Tobacco: Every Day Cigarettes 1 25 Started: 12/28/1986; Last attempted to quit: 12/28/2011 Smokeless Tobacco: Never Alcohol Use Standard Drinks/Week Comments No 0 (1 standard drink = 0.6 oz pur e alcohol) [facility] Utilities Answer Date Recorded In the past 12 months has e electric, gas, oil, or water [employer] threatened to shut off services in your [...] living in a intermediate (including now)? No 09/27/2024 DH IPV Inpatient [...] as of this encounter Progress Notes * Amaya Hernandez MD - 10/07/2024 8:02 PM EST Images from the original note were not included. DEPARTMENT OF INFECTIOUS DISEASE & INTERNATIONAL HEALTH INFECTIOUS DISEASE PROGRESS NOTE Reason for follow up Finalize OPAT plan: 49 man with MRSA bacteremia from endovascular graft infection, s/p complete explantation on 09/28. He has cleared blood cultures on IV vancomycin and is nearing time to discharge on OPAT. Major 24 Hour Events MRSA is documented as daptomycin susceptible, permitting a switch from IV vancomycin to daptomycin 8 -10mg/kg IV q 24h Subjective Patient to be fully examined by me on 10/08 Review of systems All negative except for what is stated above Antimicrobials Vancomycin IV Physical Exam Temp: [36.4 ??C (97.5 ??F)-36.8 ??C (98.2 ??F)] Heart Rate: [80-94] Resp: [12-22] BP: (129-143)/(79-90) SpO2: [95 %-98 %] Heart Rate from SpO2: [81 bpm-98 bpm] Pending exam 10/08 Laboratory CBC: Recent Labs 10/07/24 0006 10/06/24 0003 10/04/24 2350 WBC 11.27* 12.26* 12.73* HGB 10.1* 10.1* 9.8* PLATELET 789* 772* 709* Chemistry: Recent Labs 10/07/24 0006 10/06/24 0003 10/04/24 2350 NA 139 139 140 K 4.0 4.3 3.9 CL 104 103 105 CO2 BUN 18 13 CREATININE 0.61* 0.85 0.55* GLUCOSE 145 94 104 Recent Labs 10/07/24 0006 10/06/24 0003 10/04/24 2350 CALCIUM 9.0 8.8 9.0 MAGNESIUM 0.85 0.83 0.89 PHOS 4.2 4.3 4.2 LFT's: Recent Labs 09/26/24 1439 BILITOT 0.4 BILIDIR 0.2 ALBUMIN 3.1* ALKPHOS 160* ALT 14 AST 16 Microbiology Microbiology Results (last 7 days) No results found for the last 168 hours. Blood cultures + MRSA 09/26 and 09/27 Blood cultures - 09/28 and 09/29 Blood culture [[id number]] (Abnormal) (Susceptibility) Collected: 09/26/24 1422 Lab Status: Edited Result - FINAL Specimen: Blood, Venous Updated: 10/07/24 0740 Blood Culture Methicillin Resistant Staphylococcus aureus Comment: detected by PCR Isolate saved. If future testing is required, contact the Microbiology Technology Adoption Manager. Gram Stain Aerobic Bottle: Gram positive cocci in clusters Susceptibility Methicillin Resistant Staphylococcus aureus MINIMUM INHIBITORY CONCENTRATION VITEK 2 METHOD Clindamycin Resistant Daptomycin Susceptible Gentamicin Susceptible [1] Linezolid Susceptible Oxacillin Resistant Trimethoprim/Sulfa Susceptible Vancomycin Susceptible Notable Imaging/Studies: All reviewed PICC placed 10/06 Summary 49 yo man with MRSA bacteremia due to vascular graft infection; graft fully explanted and bacteremia cleared on 09/27. He has been on vancomycin for approximately 10 days and is ready to switch to IVdaptomycin for convenience of dosing and preservation of renal function. Recommendations D/c Vancomycin Start daptomycin 8 mg/kg IV dailyX 6 weeks EOT November 10, 2024 Check CK at baseline and weekly Weekly cmp, cbc OPAT engagement on Wednesday by ID team Until discharge please continue: -Daily monitoring of CBC -Monitor ABX toxicity with CBC and CMP -Temperature curve -Repeat blood cultures if temperature greater than 100.4 -Rest of management per primary team Thank you for allowing us to participate in the care of this patient. Infectious diseases team will: Continue to follow [x] Engage OPAT team on Wednesday morning [x] Amaya Hernandez MD Infectious Disease Staff Physician Mobile number [phone] 10/07/24 documented in this encounter Plan of Treatment Upcoming Encounters Date Type Department Care Team (Late st Contact Info) Description 10/23/2024 1:00 PM EST Appointment XRay at [address] [place] [address] Isabela Hayward, [facility] [place] [address] 11/09/2024 1:30 PM EST Office Visit Infectious Disease [place] [phone] Isabela Hayward, [facility] [place] [address] 11/10/2024 10:00 AM EST Office Visit Vascular Surgery [place] [phone] Dai Whitman, RESHMA 11/21/2024 2:15 PM EST Office Visit Endocrinology [place] [phone] Dayanara Grover MD [facility] [place] [address] documented as of this encounter Visit Diagnoses Not on filedocumented in this encounter Care Teams Nurses Director Relationship Specialty Start Date End Date Charles Romero [place] [place] [address] PCP - General Internal Medicine 09/18/24 documented as of this encounter
--- OUTSIDE RECORDS SUMMARY | 2024-10-20 12:39 | XMS_ITS | Encounter Summary ---
Author Organization [facility] [place] [address] Care Team Providers Care Flight Steward Name Role Phone Charles Romero Primary Care Provider + Reason for Visit * Auth/Cert (Routine) Specialty Diagnoses / Procedures Referred By William t Referred To Contact Diagnoses Vascular graft infection, initial encounter Sepsis [A41.9] T82.7XXA Procedures EMERGENCY IPI Angel Gonsalez MD [facility] [place] [address] [facility] Referral ID Status Reason Start Date Expiration Date Visits Re quested Visits Authorized [id number] 1 1 Encounter Details Date Type Department Care Team (Late st Contact Info) Description 10/04/2024 3:08 PM EST Anesthesia Event [place] [address] Isabel Longoria MD [facility] [place] [address] Lizett Mackay MD [facility] [place] [address] Anesthesia Record Procedure Summary Procedure Name Responsible Anesthesiologist Anesthesia Start Time Anesthesia Stop Time DEBRIDEMENT SKIN AND SUBCU, LOWER EXTREMITY (WRVU 1.01) (Left: Leg) Isabel Longoria MD 10/04/24 1508 10/04/24 1627 Events Date Time Event Comment 10/04/2024 1346 1508 AN Verify 1508 Start 1510 An Start Data 1514 Anesthesia Ready 1518 Handoff Intra-procedure anesthesia care was transferred after review of the patient's history, current anesthetic/surgical status and procedural plan, anticipated issues and expected post-operative course (including disposition.) Isabel Longoria MD 1613 an stop data 1627 Recovery or ICU Handoff Bronwyn ent care was transferred to the destination unit staff after review of the patient's medical history, current anesthetic/surgical status and plan, according to the Provider Handoff Checklist. 1627 Stop Meds Name Total midazolam 4 mg fentaNYL 100 mcg propofoL 50 mg dexmedeTOMIDine 4 mcg/mL 40 mcg HYDROmorphone 1 mg lactated ringers 700 mL * Agents Name O2 Air N2O Sevoflurane (et) O2 Auxiliary Flowmeter 2 * Blood No blood administrations on file. Lines, Drains, and Airways Type Details Placement Removal Incision 09/26/24; 1650; Left ; groin 09/26/24 1650 by Candie Tatum RN Incision 09/26/24; 1700; Left , medial, lower; leg 09/26/24 1700 by Candie Tatum RN Incision 09/26/24; 1726; Left , medial; thigh 09/26/24 1726 by Linda Pollock RN Closed/Suction Drain 09/30/24; 0843; Lef t, Proximal; Thigh; Bulb 09/30/24 0843 by Heidi Mobley RN NPWT 10/04/24; 1557; othe r (see comments) (left groin, left upper thigh and left calf all Y'd to one vac); 1 black sponge in left groin, left upper thigh and left calf incision 10/04/24 1557 by Linda Pollock RN Incision 07/19/24; 0946; Left ; second toe; 10/06/24; 0942 07/19/24 0946 by Alan Tobias RN 10/06/24 0942 by Liana Mccormack RN Incision 09/28/24; 1329; Left , medial, upper; leg; vertical; duplicate wound; 10/05/24; 1019 09/28/24 1329 by Smooth Parson RN 10/05/24 1019 by Liana Mccormack RN Intentionally Retained Foreign Objects 09/29/24; 1459; Dr Ruiz; Other (Comment) (Proximal left leg incision); Proximal; 1 white sponge, 1 black sponge; 10/04/24; 1550 09/29/24 1459 by Linda Pollock RN 10/04/24 1550 by Linda Pollock RN Intentionally Retained Foreign Objects 09/29/24; 1502; Dr Ruiz; Other (Comment) (Left leg distal incision); Distal; 1 white sponge, 1 black sponge; 10/04/24; 1550 09/29/24 1502 by Linda Pollock RN 10/04/24 1550 by Linda Pollock RN NPWT 09/29/24; 1504; Left , anterior; leg; 1 white sponge, 1 black sponge; 10/04/24; 1538 09/29/24 1504 by Linda Pollock RN 10/04/24 1538 by Linda Pollock RN Drain/Device Site 10/02/24; 1424; Left ; medial; thigh; (15F round drain with bulb); removed by [employer] OPERATOR; 10/09/24; 1000 10/02/24 1424 by Guanako Laio RN 10/09/24 1000 by Indira Tracey RN PIV 10/04/24; 1115; motg-apf-moiyqp catheter system; 22 gauge; basilic vein (medial side of arm), left; Anatomical Landmarks; US Not Used; Jazmín Mccormack; tolerated well, appears comfortable; 1; basilic vein (medial side of arm), left (distal to site); 10/06/24; 1351 10/04/24 1115 by Liana Mccormack RN 10/06/24 1351 by Liana Mccormack RN Open Drain 10/04/24; 1554; Dist al, Left; Thigh; (1 inch yung) 10/04/24 1554 by Linda Pollock RN 10/06/24 0900 by Liana Mccormack RN Intentionally Retained Foreign Objects 10/04/24; 1559; Dr Dickson; (1 black sponge in each: left groin, left upper thigh, left calf); Left; 1 black sponge in each: left groin, left upper thigh, left calf; 10/06/24; 0942; inaccurate documentation - wound vac dressings 10/04/24 1559 by Linda Pollock RN 10/06/24 0942 by Liana Mccormack RN Closed/Suction Drain 10/04/24; 1600 (jt hardeep in OR); Left, Lateral; Thigh; Bulb; (Duplicated LDA) 10/04/24 1600 by Vibha Guerrero RN 10/04/24 1636 by Vibha Guerrero RN documented in this encounter Social History Tobacco Use Types Packs/Day Years Used Date Smoking Tobacco: Every Day Cigarettes 1 25 Started: 12/28/1986; Last attempted to quit: 12/28/2011 Smokeless Tobacco: Never Alcohol Use Standard Drinks/Week Comments No 0 (1 standard drink = 0.6 oz pur e alcohol) [facility] Utilities Answer Date Recorded In the past 12 months has th e [employer], gas, oil, or water [employer] threatened to shut off services in your [...] time in the past 12 m [facility], were you homeless or living in a snf (including now)? No 09/27/2024 DH IPV Inpatient [...] OR Notes * Anesthesia Postprocedure Evaluation - Isabel Longoria MD - 10/04/2024 5:59 PM EST Department of Anesthesiology Post-procedure Note Patient: Lux Dixon Jr. Procedure Summary Date: 10/04/24 Room / Location: [facility] OR [address] [place] [address] MAIN OR Anesthesia Start: 1508 Anesthesia Stop: 162 Procedure: DEBRIDEMENT SKIN AND SUBCU, LOWER EXTREMITY (WRVU 1.01) (Left: Leg) Diagnosis: (Status post explant of infected left [employer]KER-BK pop bypass graft) Surgeons: Marko Dickson MD Responsible Provider: Isabel Longoria MD Anesthesia Type: general ASA Status: 4 All Anesthesia Providers: Anesthesiologist: Lizett Mackay MD; Isabel Longoria MD DIRECTOR OF MATERIALS MANAGEMENT: Tato Bhatt CRNA Vitals Value Taken Time BP 134/75 10/04/24 1700 Temp 36.2 ??C (97.2 ??F) 10/04/24 1700 Pulse 75 10/04/24 1712 Resp 11 10/04/24 1712 SpO2 98 % 10/04/24 1712 Pain Level 0 10/04/24 1700 Vitals shown include unfiled device data. Patient Location: PACU/[facility] Level of Consciousness: Awake and Alert Pain Management: Satisfactory Analgesia PONV: None Cardiovascular Status: At Baseline and Hemodynamically Stable Respiratory Status: At Baseline and Room Air Postoperative Fluid Status: Intravascular EUvolemia Possible Anesthetic Complications: NONE apparent at time of evaluation Final Primary Anesthesia Type: MAC (The anesthetic type performed was the same as planned.) Comments: Isabel Longoria MD * Anesthesia Preprocedure Evaluation - Lizett Mackay MD - 10/04/2024 1:43 PM EST Pre-Anesthesia Evaluation for: Lux Dixon . a 49 y.o. male. Procedure(s): DEBRIDEMENT SKIN, SUBCU, MUSCLE, LOWER EXTREMITY (WRVU 2.7) Patient Active Problem List Diagnosis Date Noted 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 (SVG to PDA closed 08/2013) 01/06/2012 *Vascular graft infection, initial encounter 09/26/2024 PAD (peripheral artery disease) 08/01/2024 Peripheral artery [...] 3.51) performed by Thony Garcia MD at [facility] MAIN OR PRO BYPASS GRAFT OTHR, FEM-TIBIAL Left 08/01/2024 @BYPASS GRAFT, FEM-ANT TIBIAL, -POST TIBIAL, -PERONEAL, -DP W\ SYNTHETIC CONDUIT (WRVU 23.66) performed by Lisette Maldonado MD at [facility] MAIN OR PRO CABG, ARTERY-VEIN, SINGLE 01/04/2012 @CABG, VENOUS & ARTERIAL GRAFT;SINGLE VEIN GRAFT performed by INNA TOVAR at [facility] MAIN OR PRO DEBRIDEMENT MUSCLE AND FASCIA 20 SQ CM/< Left 09/29/2024 DEBRIDEMENT SKIN, SUBCU, MUSCLE, LOWER EXTREMITY (WRVU 2.7) performed by Taylor Ruiz MD at [facility] MAIN OR PRO DEBRIDEMENT MUSCLE AND FASCIA 20 SQ CM/< Left 10/02/2024 DEBRIDEMENT SKIN, SUBCU, MUSCLE, LOWER EXTREMITY (WRVU 2.7) performed by Hermila Mccormick MDat [facility] MAIN OR PRO DEBRIDEMENT SUBCUTANEOUS TISSUE 20 SQCM/< Left 09/27/2024 DEBRIDEMENT SKIN AND SUBCU, LOWER EXTREMITY (WRVU 1.01) performed by Hayley Torres MD at [facility] MAIN OR PRO DRAIN LOWER LEG DEEP ABSC/HEMATOMA Left 09/26/2024 INCISION & DRAINAGE, LEG OR ANKLE, DEEP ABSCESS OR HEMATOMA (WRVU 5.23) performed by Hayley Torres MD at [facility] MAIN OR PRO DRAIN LOWER LEG DEEP ABSC/HEMATOMA 09/27/2024 INCISION & DRAINAGE, LEG OR ANKLE, DEEP ABSCESS OR HEMATOMA (WRVU 5.23) performed by Hayley Torres MD at [facility] OR PRO ENDOSCOPY W/VIDEO-ASST VEIN HARVEST, CABG 01/04/2012 ENDOSCOPIC HARVEST VEIN(S) FOR CABG performed by INNA TOVAR at [facility] MAIN OR PRO EXCISION, INFEC GRAFT, EXTREMITY Left 09/26/2024 EXCISION OF INFECTED GRAFT FROM LOWER EXTREMITY (WRVU 9.53) performed by Hayley Torres MD at [facility] OR PRO EXCISION, INFEC GRAFT, EXTREMITY Left 09/28/2024 EXCISION OF INFECTED GRAFT FROM LOWER EXTREMITY (WRVU 9.53) performed by Hayley Torres MD at [facility] OR PRO EXCISION, INFEC GRAFT, EXTREMITY 09/27/2024 EXCISION OF INFECTED GRAFT FROM LOWER EXTREMITY (WRVU 9.53) performed by Hayley Torres MD at [facility] MAIN OR PRO EXPLORATION NOT FOLLOWED BY SURG LOWER EXTREMITY ARTERY Left 09/29/2024 @EXPLORATION W\O SURGICAL REPAIR, FEMORAL ARTERY - JENNIFER (WRVU 7.5) performed by Taylor Ruiz MD at [facility] MAIN OR PRO FORM SKIN PEDICLE FLAP SCALP, ARM, LEG 09/28/2024 FLAP, PEDICLE,W OR W/O TRANSFER, LEGS (WRVU 10.12) performed by Hayley Torres MD at [facility] MAIN OR PRO I&D DEEP ABSCESS BURSA/HEMATOMA THIGH/KNEE REGION Left 09/26/2024 INCISION & DRAINAGE ABSCESS OR HEMATOMA, THIGH, KNEE SUPERFICIAL (WRVU 6.78) performed by Hayley Torres MD at [facility] MAIN OR PRO I&D DEEP ABSCESS BURSA/HEMATOMA THIGH/KNEE REGION 09/27/2024 INCISION & DRAINAGE ABSCESS OR HEMATOMA, THIGH, KNEE SUPERFICIAL (WRVU 6.78) performed by Hayley Torres MD at [facility] MAIN OR PRO REVISION FEMORAL ANAST BPG GROIN OPEN W/NONAUTOG PATCH GRAFT Left 09/28/2024 REV. FEM. ANASTOMOSIS OF SYN. BYPASS GRAFT USING NONAUTOGENOUS PATCH ANGIOPLASTY-JENNIFER (WRVU 23.15) performed by Hayley Torres MD at [facility] MAIN OR PRO UNLISTED PROCEDURE VASCULAR SURGERY Left 09/28/2024 HARVEST SAPHENOUS VEIN (WRVU 13.24) performed by Hayley Torres MD at [facility] MAIN OR VS ARTERIOGRAM LOWER EXTREMITY VASCULAR SURGERY 07/20/2024 VS Arteriogram Lower Extremity Vascular Surgery 07/20/2024 Taylor Ruiz MD [facility] INTERVENTIONL RAD Social History Tobacco Use Smoking status: Every Day Current packs/day: 0.00 Average packs/day: 1 pack/day for 25.0 years (25.0 ttl pk-yrs) Types: Cigarettes Start date: 12/28/1986 Last attempt to quit: 12/28/2011 Years since quittin.7 Smokeless tobacco: Never Substance Use Topics Alcohol use: No Social History Substance and Sexual Activity Drug Use No No Known Allergies Medications: MAR and/or home medications have been reviewed. Physical Exam: Preprocedure Vitals Current as of 09/29/24 1322 BP: Pulse: 76 Resp: 16 SpO2: 96 Temp: 36.7 ??C (98.1 ??F) Height: 179.1 cm (5' 10.51) (09/26/24) Weight: 104.1 kg (229 lb 8 oz) (09/29/24) BMI: 32.45 IBW: 74.2 kg (163 lb 8.5 oz) Last edited 09/29/24 1200 by RG Currently displaying vitals information from multiple entries within 180 minutes of most recent vitals. Airway Assessment: Mallampati: I TM distance: >3 FB Neck ROM: full Cardiovascular Assessment: Rhythm: regular Rate: normal (+) murmur Pulmonary Assessment: breath sounds clear to auscultation Dental Assessment: (+) edentulous Misc Assessment: IV access: Peripheral line and A-line Last Filed Perioperative Cognitive Screening Value Time User 4AT TOTAL Score: 0 05/31/2024 7:25 PM Maribel Quinn RN Anesthesia Plan: ASA 4 general, with a(n) intravenous induction 49M with CAD s/p 2v CABG (2011, SVG to PDA known closed 08/2013), HTN, HLD, DM2, (SGLT2i), depression, tobacco use, cocaine use, obesity BMI 33, narcolepsy, and chronic limb ischemia of LLE s/p toe amps and LLE bypass graft now admitted with graft infection s/p explant and washout on 09/26 & 09/27,, and for dressing change. AnesHx: Multiple previous recent anesthetics without apparent complication. Airway: MV with oral airway, DL x 1 with MAC 4, grade 1 view, 8.0 ETT @22cm CVHx: ECHO 09/29/24: Interpretation Summary -Limited study performed for bacteremia [...] prior echo from 05/29/2024, no significant changes. Surgeon requesting trial MAC for dressing change in anticipation of transitioning to bedside vac changes. Serial consent on file. Region - Other Informed Consent: Anesthetic plan and risks discussed with patient. Plan discussed with attending and DIRECTOR OF MATERIALS MANAGEMENT. Anesthesia Screening documented in this encounter Plan of Treatment Upcoming Encounters Date Type Department Care Team (Late st Contact Info) Description 10/23/2024 1:00 PM EST Appointment XRay at [address] [place] [address] Iasbela Hayward, RESHMA [facility] [place] [address] 11/09/2024 1:30 PM EST Office [place] [address] Isabela Hayward, [employer] OPERATOR [facility] [place] [address] 11/10/2024 10:00 AM EST Office [place] [phone] Dai Whitman, [employer] OPERATOR 11/21/2024 2:15 PM EST Office [place] [phone] Dayanara Grover MD [facility] [place] [address] documented as of this encounter Visit Diagnoses Not on filedocumented in this encounter Administered Medications Inactive Administered Medications - up to 3 most recent administrations Medication Order MAR Action Action Date Dose Rate Site dexmedeTOMIDine (Precedex) (4 mcg/mL) bolus injection (Anesthsia) Intravenous, PRN, Starting on Wed10/04/24 at 1516, Until Wed10/04/24 at 1630, Anesthesia Intra-op, Routine Given 10/04/2024 3:41 PM EST 8 mcg Given 10/04/2024 3:24 PM EST 8 mcg Given 10/04/2024 3:21 PM EST 12 mcg fentaNYL (pf) (50 mcg/mL) multi-dose injection Intravenous, PRN, Starting on Wed10/04/24 at 1514, Until Wed10/04/24 at 1630, Anesthesia Intra-op, Routine Given 10/04/2024 3:27 PM EST 25 mcg Given 10/04/2024 3:24 PM EST 25 mcg Given 10/04/2024 3:17 PM EST 25 mcg HYDROmorphone (Dilaudid) (2 mg/mL) multi-dose injection solution Intravenous, PRN, Starting on Wed10/04/24 at 1455, Until Wed10/04/24 at 1630, Anesthesia Intra-op, Routine Given 10/04/2024 3:52 PM EST 0.5 mg Given 10/04/2024 2:55 PM EST 0.5 mg lactated ringers infusion Intravenous, CONTINUOUS PRN, Starting on Wed10/04/24 at 1508, Until Wed10/04/24 at 1630, Anesthesia Intra-op New Bag 10/04/2024 3:08 PM EST midazolam (pf) (Versed) (1 mg/mL) multi-dose injection Intravenous, PRN, Starting on Wed10/04/24 at 1516, Until Wed10/04/24 at 1630, Anesthesia Intra-op, Routine Given 10/04/2024 3:35 PM EST 2 mg Given 10/04/2024 3:16 PM EST 2 mg propofoL (Diprivan) 10 mg/mL bolus injection (Anesthesia) Intravenous, PRN, Starting on Wed10/04/24 at 1551, Until Wed10/04/24 at 1630, Anesthesia Intra-op Given 10/04/2024 3:51 PM EST 50 mg documented in this encounter Care Teams Flight Steward Relationship Specialty Start Date End Date Charles Romero PA [address] [place] [address] PCP - General Internal Medicine 09/18/24 documented as of this encounter
--- OUTSIDE RECORDS SUMMARY | 2024-10-20 12:39 | XMS_ITS | Encounter Summary ---
Author Organization [facility] [place] [address] Care Team Providers Care Warehouse Worker Name Role Phone Charles Romero Primary Care Provider + Reason for Referral * Consultation (Routine) - Authorized Specialty Diagnoses / Procedures Referred By Contac t Referred To Contact Infectious Diseases Diagnoses MRSA bacteremia Amaya Hernandze MD [facility] [place] [address] Amaya Hernandez MD [facility] [place] [address] Referral ID Status Reason Start Date Expiration Date Visits Requested Visits Authorized [id number] Authorized Assume Subset of Care 10/09/2024 10/09/2025 1 1 * Home Health Care (Routine) - Authorized Specialty Diagnoses / Procedures Referred By Contac t Referred To Contact Diagnoses Vascular graft infection, initial encounter María Carranza APRN [facility] [address] [facility] [place] [address] Referral ID Status Reason Start Date Expiration Date Visits Requested Visits Authorized [id number] Authorized Consult, Test & Treat 10/10/2024 04/08/2025 999 999 Reason for Visit * Auth/Cert (Routine) Specialty Diagnoses / Procedures Referred By Contac t Referred To Contact Diagnoses Vascular graft infection, initial encounter Sepsis [A41.9] T82.7XXA Procedures EMERGENCY IPI Angel Gonsalez MD [facility] [place] [address] [facility] Referral ID Status Reason Start Date Expiration Date Visits Re quested Visits Authorized [id number] 1 1 Encounter Details Date Type Department Care Team (Latest Contact Info) Description 09/26/2024 2:08 PM EST - 10/10/2024 5:11 PM EST Hospital Encounter Surgical Unit Level 4 [place] [id number] Marko Dickson MD [facility] [place] [address] Hayley Torres MD [facility] [place] [address] Vascular graft infection, initial encounter; PAD (peripheral artery disease); Critical limb ischemia of left lower extremity; MRSA bacteremia; QT prolongation Discharge Disposition: Home with VNA Social History Tobacco Use Types Packs/Day Years Used Date Smoking Tobacco: Every Day Cigarettes 1 25 Started: 12/28/1986; Last attempted to quit: 12/28/2011 Smokeless Tobacco: Never Alcohol Use Standard Drinks/Week Comments No 0 (1 standard drink = 0.6 oz pur e alcohol) [facility] Utilities Answer Date Recorded In [...] time in the past 12 m [facility], were you homeless or living in a custodial (including now)? No 09/27/2024 DH IPV Inpatient [...] EST Inhaled Oxygen Concentration - - Weight 105 kg (231 lb 7.7 oz) 09/30/2024 12:00 A M EST Height 179.1 cm (5' 10.51) 09/26/2024 2:[address] Body Mass Index 32.73 09/26/2024 2:36 PM EST documented in this encounter Discharge Summaries * María Carranza APRN - 10/10/2024 9:06 AM EST Images from the original note were not included. Inpatient - Discharge Summary Patient Name: Geovanna Dixon Jr. Patient Age: 49 y.o. Birthdate: 1975 Admit date: 09/26/2024 Discharge date and time: 10/10/24 1:06 PM Attending Physician: Hayley Torres MD Discharging Provider: María Carranza APRN Discharging Service: Vascular Surgery Operations/Major Procedures: 09/26/24: Explant of infected LEFT [employer] to below-knee popliteal artery PTFE bypass graft Incision and drainage, and washout of LEFT groin, medial thigh, and medial calf wounds Surgeon: Surgeons and Role: * Hayley Torres MD - Primary * Dolly Dan MD - Resident - Assisting * Ken Moeller MD - Resident - Assisting 09/27/24: Evacuation of abscess in left posterior thigh compartment via AK popliteal incision. Irrigation of left groin and calf incision sites Surgeon: Surgeons and Role: * Hayley Torres MD - Primary * Cristino Meeks MD - Resident - Assisting * Anabel Finney MD - Assisting Attending 09/28/24: LEFT great saphenous vein harvest Removal of left common femoral and below knee popliteal artery PFTE graft willard and common femoral bovine pericardial patch Vein patch angioplasty of LEFT common femoral artery and below-knee popliteal artery Rotational sartorius muscle flap placement over LEFT femoral artery Excisional debridement, washout, and LEFT groin wound VAC placement Surgeon: Surgeons and Role: * Hayley Torres MD - Primary * Ken Moeller MD - Resident - Assisting * Anabel Finney MD - Assisting Attending 09/29/24: @EXPLORATION W\O SURGICAL REPAIR, FEMORAL ARTERY - JENNIFER (WRVU 7.5) (Left) DEBRIDEMENT SKIN, SUBCU, MUSCLE, LOWER EXTREMITY (WRVU 2.7) (Left) Surgeon: Surgeons and Role: * Anabel Finney MD - Primary * Tato Aguirre MD - Fellow - Assisting 10/02/24: DEBRIDEMENT SKIN, SUBCU, MUSCLE, LOWER EXTREMITY (WRVU 2.7) (Left) Surgeon: Surgeons and Role: * Hermila Mccormick MD - Primary * Cristino Meeks MD - Resident - Assisting * Tato Aguirre MD - Fellow - Assisting 10/04/24: DEBRIDEMENT SKIN AND SUBCU, LOWER EXTREMITY (WRVU 1.01) (Left) Surgeon: Surgeons and Role: * Marko Dickson MD - Primary * Cristino Meeks MD - Resident - Assisting Active Hospital Problems: Active Hospital Problems Diagnosis Vascular graft infection, initial encounter Resolved Hospital Problems No resolved problems to display. Active Non Hospital Problems: Active Non-Hospital Problems Diagnosis 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 (SVG to PDA closed 08/2013) PAD (peripheral artery disease) Peripheral artery disease Critical limb ischemia of left lower extremity Diabetes mellitus Obesity NSTEMI (non-ST elevated myocardial infarction) HTN (hypertension) Hyperlipidemia Depression Narcolepsy History of Presentation: Geovanna Dixon Jr. is a 49 y.o. male with a history of HTN, HLD, NSTEMI, CAD s/p CABG (12/2011), DM,obesity, PAD s/p L iliofem endart and L fem-BK pop bypass and L 2nd toe amputation who was transferred from [facility] given concern for infected left fem-BK popliteal PTFE bypass. At the OSH, he underwentCT LLE with contrast that demonstrated fluid surrounding the graft and he was initiated on vancomycin and cefepime. He was noted to have a lactate of 3.6. He states that he noticed his left groin has some swelling and some drainage about a week ago that then extended down his leg over the course of the week. He states that he presented to the clinic (unclear where) but was not given an antibiotic. He states that he continues to take aspirin as well as Xarelto for his bypass. He states that he is not felt any fevers, chills, nausea, vomiting, chest pain, shortness of breath or abdominal pain. He states that he still able to walk around but has difficulty given that he has left groin and thigh fullness and pain. He states that he is able to feel his entire left leg and foot. He last ate this morning at 7 AM. He states that he stopped smoking 1 week ago. Prior vascular history 08/01/2024: Left iliofemoral endarterectomy and left femoral to below-knee popliteal artery bypass with 7mm ringed PTFE 07/19/2024: Left 2nd toe amputation Anticoagulation: Xarelto, bypass patency Antiplatelet: Aspirin Hospital Course: 09/26/24: In Surgery: Findings: Large volume of purulence surrounding entire bypass graft at proximal and distal anastomoses as well as within the tunnel. One medial thigh incision made in addition to groin and medial calf incisions in order to evacuate abscess. Hoods of PTFE bypass graft left attached to proximal and distal anastomoses. Doppler signal in left PT and patient was motor/sensory intact on case completion. Patient admitted to hospital for post-operative monitoring and pain management. He did not require pressors for HDS. Did not require transfusion. Mendez removed 10/03 with adequate UOP and pain well controlled. Infectious Disease consulted on 09/27 for c/f graft infection. See recommendations below and final recs as outlined. Diabetes management team consulted 09/27 for help with inpatient glucose management secondary to diabetes. See recommendations below and final recs as outlined. Returned to OR on 09/27: In Surgery: Findings: Left groin 1 white sponge removed and left groin PTFE cuff and patch appearedto be intact. Left calf incision site Kerlix removed and PTFE cuff noted to be intact. Left AK popliteal incision made and thigh explored via blunt dissection to abscess pocket that was at the posterior thigh compartment, which 100cc of purulent fluid was evacuated, tissue culture sent. Tissue in gr oin and calf incision site appeared to be less infected, albeit purulent fluid continued to accumulate until abscess pocket was evacuated. 2x new yung drains placed that connected AK popliteal site incision with groin (1x drain there) and calf incision (1x drain there). Left groin site had vancomycin paste and 1 white sponge placed. Tunnels had vancomycin paste injected. Incision sites packed with betadine Kerlix then ABD then leg wrapped in Kerlix. Patient re-admitted to hospital for post-operative monitoring and pain management. Returned to OR on 09/28: In Surgery: Findings: - Significant inflammation and scarring around femoral and below-knee popliteal arteries making extremely dissection challenging. - Prior bovine pericardial patch and PTFE willard over the [employer] was unincorporated. - Resection of prior femoral patch and PTFE graft hoods at femoral and below- knee popliteal arteries, and patch angioplasty with harvested left great saphenous vein. - Sartorius flap mobilized to cover the left femoral artery with RAY drain placed in potential space. - Significant thrombus in prior bypass graft tunnels irrigated out. - One white and one black sponge in left groin, and VAC attached to -75 mmHg suction. - Doppler signal in left PT on case completion. Nutrition consulted on 09/29/24 for concern of malnutrition. See formal recommendations and assessment below. Patient re-admitted to hospital for post-operative monitoring and pain management. Returned to OR on 09/29/24: In Surgery: Findings: One black and one white sponge removed from left groin incision. Wounds irrigated with copious sterile saline through red rubber catheter with evacuation of hematoma but no additional purulent fluid identified. Left sartorius flap re-mobilized and explored. Wound copiously irrigated. Flap inset with interrupted vicryl sutures. Superior aspect of the femoral incision closed with interrupted vicryls, cameron One white sponge placed deep in femoral wound followed by one black sponge. Most inferior wound at BK pop exposure site dressed with one white and black sponge. Penroses remained in place. Patient admitted to hospital for post-operative monitoring and pain management. Worked with PT/OT services, whose recommendations are below. Returned to OR on 10/02/24: Findings: Left lower extremity wound irrigated- small volume fibrinous exudate removed from upper two wounds. Otherwise wounds appeared healthy. Sartorius flap healthy and starting to adhere. Yung drains removed with replacement of 15 Fr jose drains x2 through undermining tunnels- brought out through medial stab incisions 3 black sponges and two white sponges placed into superior and inferior wounds Approximately 20 cm?? of subcutaneous tissue fat and muscle were debrided. Returned to OR on 10/04: In Surgery: Findings: All left leg incision sites are clean with small amount of fibrinous exudate that was bluntly debrided and copiously irrigated with normal saline. Left sartorius flap is healthy. No artery visualized in groin or calf incisions. 2 RAY drains remained, the one RAY drain that is medial was trimmed back so that it laid flat in the groin. Left groin wound had 1 black sponge placed Left proximal thigh wound had 1 black sponge placed Left distal thigh wound had 1 new 1-inch yung drain placed to the posterior thigh compartment then packed with a WTD Kerlix and dressed with 4x4 gauze then ABD pad then with Medipore tape. Left calf wound had 1 black sponge placed. Wound vac to L groin, L medial thigh and L medial upper calf changed on 10/08/24. See note and pictures below. WTD dressing medial L thigh changed 10/10/24. Remains with one sartorius drain from L groin with small amount of serous drainage. MR for discharge on 10/10/24 as he has been HDS with baseline and adequate pain control, VS, UOP, POintake, mobility, wound healing and ambulation status without fever or s/s infection. He will f/u in clinic in one week for wound check. He will discharge on Aspirin 81 mg daily. Physical Exam: GEN: Alert and appears stated age. Cooperative. In NAD. HEENT: Normocephalic and atraumatic. CV: Regular rate. Pulm: Breathing comfortably on room air. 95% Abd: Soft, non-distended, non-tender to palpation. Skin: Color, texture, turgor normal. No rashes or lesions. Neuro: No gross sensory or motor abnormality. Extremities: L groin incision sites with drains with minimal serosanguinous drainage. Wound vacs sponge x 3 present, holding suction well. Dressings changed at bedside, applied with ABD pads; securedwith medipore tape, no LLE erythema or edema. RAY drain x 2, small amount SS drainage Vascular: DP and PT signals present Consultations: Infectious Disease 09/27/24: Geovanna Dixon JrFlorencio is a 49 y.o. male with a history of coronary artery disease status post CABG, hypertension dyslipidemia diabetes, peripheral arterial disease who underwent a left lower extremity femoral to below-knee popliteal artery bypass on 08/01/2024. Unfortunately, he has developed a vasculargraft associated infection with MRSA. Blood cultures are positive and we anticipate the wound cultures to be positive with this organism. He still has PTFE graft stumps in place; if there is any to remove the remaining stumps in the following OR visits that will help with source control. As he has positive blood cultures would recommend at least a TTE. Recommendations: Stop piperacillin-tazobactam Continue with vancomycin, pharmacy assisted dosing If able, remove PTFE stumps TTE given the bacteremia to evaluate valve function Repeat blood cultures Recommendations discussed with primary treating team. Thank you very much for this interesting consult and allowing me to participate in this patient's care. The Infectious Disease consult service will continue to follow patient. Do not hesitate to page with any further questions or concerns. 10/07/24: Infectious Disease: Summary 49 yo man with MRSA bacteremia [...] participate in the care of this patient. Diabetes Management: 09/27/24: Assessment: Geovanna Llanos Zack OrdoñezFlorencio is a 49 y.o. male with PMH of CAD c/b NSTEMI in 2011 now s/p 2v CABG and PCI x2, HFrEF (LVEF 47% in May 2024), HTN, HLD, insulin dependent diabetes, narcolepsy, substance use (cocaine), and PAD c/b critical limb ischemia of his left-lower extremity now s/p LEFT femoral to below-knee popliteal artery bypass on 08/01/[address] Dickson who now presents to the surgical ICU for treatment and evaluation of sepsis 2/2 vascular graft associated infection. A1C will be updated with morning labs, this summer elevated at 12.6% suggesting an average glucose of 315. Since his discharge he h as been using basal bolus insulin and blood sugars were mostly in 100s until more recently when they elevated to 200s. Currently has variability of blood glucose levels while hospitalized requiring adjustment of insulin regimen and DM medications. Anesthesia in to june Wasserman, we discussed avoiding dexamethasone if possible, provider indicatedhe could use Zofran to avoid the steroid induced insulin resistance we often see following dex in the OR. Geovanna seems to be doing well with basal bolus insulin at home. Referral should be placed for out patient endocrinology at time of discharge. I would suggest a return to weight based insulin dosing until Geovanna is eating. Using Weight based using 0.7 x wt in kg as TDD or 71 units. We anticipate 50% of this is required as basal insulin dosing, glargine 35 units. Based on rule of 500 carb ratio calculates to 1:7 and correction to moderate scale (ISF 20). Plan: 1. Lantus 35 units qd 2. Meal-associated Lispro 1unit: 7 gm carb ratio for each meal 3. Correction Lispro, ISF 20 4. Diet: NPO 5. Monitoring: q4 Discharge Considerations: Please place referral for outpatient endocrinology for Dr. Grover. Medications - Outpatient treatment regimen recommendations pending based on the hospital course. Monitoring - continue BG tid ac & hs Diet - low fat/low carb diet Exercise - weight-bearing exercise 30 min/day, as tolerated 10/09/24: Diabetes Management ASSESSMENT Geovanna Dixon Jr. is a 49 y.o. male with PMH of CAD c/b NSTEMI in 2011 now s/p 2v CABG and PCI x2, HFrEF (LVEF 47% in May 2024), HTN, HLD, insulin dependent diabetes, narcolepsy, substance use (cocaine), and PAD c/b critical limb ischemia of his left-lower extremity now s/p LEFT femoral to below-knee popliteal artery bypass on 08/01/[address] Dickson who now presents to the surgical ICU for treatment and evaluation of sepsis 2/2 vascular graft associated infection. A1C updated and 9.7%,down from12.6% this summer. Since his discharge he has been using basal bolus insulin and blood sugars were mostly in 100s until more recently when they elevated to 200s. Currently has variability of blood glucose levels while hospitalized requiring adjustment of insulin regimen and DM medications PLAN Lantus- 25 units BID, Lispro 1:5 insulin to carbohydrate ratio Lispro for correction q 4 hours based on a correction factor of moderate Diet NPO Monitoring: Q4 FOR D/C: Diabetes Discharge Instructions & Recommendations Check blood sugars when you wake up, before meals, bedtime, anytime you don't feel well. Restart Metformin 1000mg twice daily with meals Hold Jardiance until your wounds are healed. See new Lantus and Humalog doses below - you should be taking Humalog 3 times daily before meals. IF YOU EVER GO back on Trulicity, your Humalog doses will [...] for insulin glargine (Lantus) Insulin (LONG ACTING) TWICE A DAY Please inject Lantus 25 units every evening and 25 units in the AM If your fasting blood sugars are above 150mg/dl two days in a row, please increase your night time Lantus by 2 units. If your fasting blood sugars are below 90mg/dl two days in a row, please decrease your night time Lantus by 2 units. This dose now becomes your new daily dose unless it need to be further adjusted based on future glucose readings. Instructions for insulin lispro (Humalog) Mealtime & Correction Insulin Test your blood sugar ideally 15 minute before you plan to eat. We think your insulin to carb ratiois one unit cover 5 grams of carbohydrates Estimate the size of meal (normal, big, small): Normal meal (60-70g carbs) Please inject a base dose of Humalog 12 units with meals. If you are eating a larger meal (80-100g), please increase your Humalog to 16 units. If you are eating a smaller meal (45-60g), please decrease your Humalog to 8 units. If you are not eating any [...] BG 141 - 155 ADD 1 unit to the food insulin BG 156 - 170 ADD 2 units to the food insulin BG 171 - 185 ADD 3 units to the food insulin BG 186 - 200 ADD 4 units to the food insulin BG 201 - 215 ADD 5 units to the food insulin BG 216 - 230 ADD 6 units to the food insulin BG 231 - 245 ADD 7 units to the food insulin BG 246 - 260 ADD 8 units to the food insulin BG 261 - 275 ADD 9 unitsto the food insulin BG 276 - 290 ADD 10 units to the food insulin BG greater than 290, ADD 11 units [...] day to have your insulin doses adjusted. .What should you know about eating carbs? Managing the amount of carbohydrate (carbs) you eat is an important part of healthy meals when you have diabetes. Carbohydrate is found in many foods. Learn which foods have carbs. And learn the amounts of carbs in different foods. Bread, cereal, pasta, and rice have about 15 grams of carbs in a serving. A serving is 1 slice of bread (1 ounce), ?? cup of cooked cereal, or 1/3 cup of cooked pasta or rice. Fruits have 15 grams of carbs in a serving. A serving is 1 small fresh fruit, such as an apple or orange; ?? of a banana; ?? cup of cooked or canned fruit; ?? cup of fruit juice; 1 cup of melon or raspberries; or 2 tablespoons of dried fruit. Milk and cu-xoocn-phhbl yogurt have 15 grams of carbs in a serving. A serving is 1 cup of milk or 3/4 cup (6 oz) of wy-wtzsb-tqxzm yogurt. Starchy vegetables have 15 grams of carbs in a serving. A serving is ?? cup of mashed potatoes or sweet potato; 1 cup winter squash; ?? of a small baked potato; ?? cup of cooked beans; or ?? cup cooked corn or green peas. Learn how much carbs to eat each day and at each meal. A dietitian or certified medicine aide can teach you how to keep track of the amount of carbs you eat. This is called carbohydrate counting. If you are not sure how to count carbohydrate grams, use the plate method to plan meals. It is a quick way to make sure that you have a balanced meal. It also can help you manage the amount of carbohydrate you eat at meals. Divide your plate by types of foods. Put non-starchy vegetables on half the plate, meat or other protein food on one-quarter of the plate, and a grain or starchy vegetable in the final quarter of theplate. To this you can add a small piece of fruit and 1 cup of milk or yogurt, depending on how many carbs you are supposed to eat at a meal. Try to eat about the same amount of carbs at each meal. Do not save up your daily allowance of carbs to eat at one meal. Proteins have very little or no carbs. Examples of proteins are beef, chicken, turkey, fish, eggs, tofu, cheese, cottage cheese, and peanut butter. 09/29/24: Nutrition Services Nutrition NPO Note Geovanna Dixon Jr. is a 49 y.o. male with pmhx of CAD c/b NSTEMI in 2012 now s/p 2v CABG and PCI x2,HFrEF HTN, HLD, insulin dependent diabetes, narcolepsy, substance use (cocaine), and PAD c/b critical limb ischemia of his left-lower extremity now s/p LEFT femoral to below-knee popliteal artery bypass on 08/01/[address] Dickson who now presents to the surgical ICU for treatment and evaluation of sepsis 2/2 vascular graft associated infection. Patient has been on NPO or on a clear liquid diet only for 4 days, increasing risk for malnutrition. Patient has ordered 1 meal since admit, 100% po intake per flowsheets Limit NPO time as able If clinically unable to advance oral diet consider consult to Nutrition Services to evaluate for potential nutrition support. Nutrition Services 10/03/24: Reason for intervention: follow up Nutrition Plan: Continue Diet Plan Encourage good PO Insulin, mag-ox, magnesium sulfate, Klor ConM noted Monitor Weight Geovanna Dixon Jr. was scheduled for a f/u nutrition evaluation. Educational Administration Teacher met pt at bedside. Pt sharedthat his appetite is good. He reports that he isn't overly hungry but eats 100% of his meals. Per documentation pt has excellent PO intakes recorded at 2x 100% over the past 4 days. According to dining services software they have ordered an average ~1143 kcals/day and ~63g protein/day within the same duration.Pt's wt is trending up at the moment. He reports that his UBW is 228. Please continue toenter meal intake percentages and update and trend weights to allow for ongoing assessment of weight changes. Clinical Nutrition to monitor and follow. Physical Therapy: 10/09/24: Assessment: Geovanna Dixon Jr. is hospital day #13 s/p multiple LLE surgical procedures, MRSA bacteremia, PICC line and will have out-patient antibiotics and wound VAC. Prior PT messaged Vascular teamto clarify that pt no longer needs to wear off loading shoe for L foot and now is AAT/OOB. He is demonstrating independence with transfers and gait with walker. He managed climbing up/down single step and able to enter family's home. He should do well with expected dc to home with his family support. Goals met, cleared PT for DC home. Inpatient Physical Therapy Plan: discharge inpatient Physical Therapy services ; goals met. Discharge Recommendations: Based on current findings- home (sister & [id number] home) Consult Recommendations: No other consults recommended at this time. Equipment needs: None (has walker) Occupational Therapy: 10/09/24: Document Type: contact Total Minutes, Occupational Therapy: 8 Reason: Met with patient this afternoon, reports that he is independent in room with ADLs and has no concerns related to OT at this time. OT to complete orders. Wound Vac Change 10/08/14: Wound Vac Change Procedure Note Procedure Details: Patient was given pain medication prior to procedure. Wound vac negative pressure therapy was paused and 10cc of 1% lidocaine was administered through the wound vac tubing for additional analgesia. Starting with the left groin wound, plastic and 1 black sponge were removed from the wound carefully with the use of saline bullets to minimize tissue damage. The proximal aspect of the left groin wound was probed with a sterile q-tip deep to the subcutaneous tissue to determine the extent of the wound that required packing. Wound edges were windowed with plastic adhesive to protect skin edges. Wound measurements were obtained, see photos included in chart. 1 piece of Black sponge was used to pack in wound, taking care to pack deep to the subcutaneous tissue proximally, with a bridge for virginie pad placement and covered by plastic. The sponge was exposed and virginie pad placed, and 125 mmHg continuous negative pressure therapy was initiated on the left groin wound without issue. We then repeated the wound vac sponge removal process for both the distal left thigh wound and the left leg wound,removing 1 black sponge from each. A total of 3 black sponges were removed. At the completion of the procedure, 125mmHg continuous negative pressure therapy was initiated on each wound without signs of leakage. The patient tolerated the procedure well with no complications. Vital signs stable. Estimated Blood Loss: None Karolyn Hudson MD Vascular Surgery, [id number] 10/09/24 Important Studies and Lab Data: Labs: TTE 09/28/24: Interpretation Summary -Limited study performed for bacteremia [...] 05/29/2024, no significant changes. Procedure Limited - 46778. Doppler - 57879. Color Doppler - 22221. Suboptimal quality. This study is limited because [...] indeterminate. 2D Measurements Volumes IVSd: 1.0 cm LAV(MOD-bp) Indexed: LVIDd: 6.2 cm 27.7 ml/m2 LVIDs: 4.7 cm LVPWd: 1.0 cm RWT: 0.33 LV mass(C)d: 263.3 grams LV mass(C)dI: 116.5 grams/m2 Ao root diam: 3.8 cm Ao root diam index: 1.7 Doppler LV V1 VTI: 17.9 cm MV E max annabelle: 101.0 cm/sec MV A max annabelle: 102.6 cm/sec MV E/A: 0.98 Lat Peak E' Annabelle: 13.1 cm/sec E/e' (lat): 7.7 Med Peak E' Annabelle: 8.4 cm/sec E/e' (med): 12.0 E/e' Average: 9.9 I WMSI = 1.31 % Normal = 81 09/28/24: ELEN Diabetes mellitus: Yes Findings: Right Pressure (mm Hg) ELEN Waveform TBI Dorsalis Pedis (Ankle) Artery 131 1.07 Triphasic Posterior Tibial (Ankle) Artery 142 1.16 Triphasic Great Toe 94 0.77 Left Pressure (mm Hg) ELEN Waveform TBI Brachial Artery 122 Dorsalis Pedis (Ankle) Artery 37 0.30 Monophasic Posterior Tibial (Ankle) Artery 36 0.30 Monophasic Great Toe 0 0.00 Interpretation: RIGHT: No significant lower extremity arterial occlusive disease identified at rest. Normal ankle/brachial pressure ratios and ankle Doppler waveforms. No significant change compared to previous exam on 07/17/2024. LEFT: Severe lower extremity arterial occlusive disease. Toe waveform is absent. Significant deterioration compared to previous exam on 07/17/2024. CT LE 2nd read 09/26/24: FINDINGS: Left: There is a bypass graft from the left common femoral artery extending below the inferior margin of the study. There is a soft tissue fluid and gas [...] on series 3, image 8 and 641, 352, 374, 802. No other rim-enhancing fluid collection is seen. No knee joint effusion. No hip joint effusion. Normal alignment of the left hip. Incomplete imaging of the left knee. No acute fracture. No destructive bone lesion. The quadriceps tendon is intact. There are multiple enlarged left inguinal and left external iliac lymph nodes. Right: Normal bulk and attenuation of the visualized muscles. No rim-enhancing soft tissue collection. Normal alignment of the right hip. No right hip joint effusion. Incompletely imaged right knee. The right knee joint effusion. The quadriceps tendon is intact. After sclerotic calcification of the right common femoral [...] below the inferior margin of the study. Findings are consistent with graft infection, but the inferior extent of infection is unknown. 2. Phase of contrast is not optimized to evaluate the patency of the left femoral bypass graft. There appears to be at least some degree of thrombus formation within the graft at multiple sites. Since the bypass graft also extends below the inferior margin of the study, the graft is incompletely evaluated. 3. Multiple enlarged left inguinal and left external iliac lymph nodes are presumed to be reactive in the context of left femoral graft infection. 09/27/24: CT LLE FINDINGS: OSSEOUS STRUCTURES: No acute fracture, periostitis, [...] wedged between the vastus medialis and adductor Randolph muscle. This tracks into the popliteal fossa [...] and partial drainage of perigraft abscess. 2. A residual deep-seated abscess collection extends from proximal and thigh to proximal calf. This abscess contains air and an irregular enhancing rim. 3. No CT findings of osteomyelitis or septic arthritis. Discharge Condition: stable Discharge to: Home Future Appointments and Orders Future Appointments and Orders Future Appointments Provider Department Dept Phone 10/19/2024 2:30 PM Isabela Hayward APRN Infectious Disease at [facility] Arrive at: Home [phone] To view instructions for your video visit, click here, or visit this website: [email or web address] If you have not previously downloaded the [facility] patient portal software, [employer], please do so by clicking one of the links below or searching in your device's lobito store. Accruent devices 11/09/2024 1:30 PM Isabela Hayward APRN Infectious Disease at [facility] Arrive at: Enrollment Clerk Area [phone] 11/21/2024 2:15 PM Dayanara Grover MD Endocrinology at [facility] Arrive at: Enrollment Clerk Area 3A [phone] Future Orders Complete By Expires CBC (with Diff) [NTG726 Custom] 10/17/2024 12/11/2024 Process Instructions: INCLUDES: WBC, RBC, Hgb, Hct, Platelets, RBC Indices and Differential Scheduling Instructions: Comments: Questions: OPAT: Order / Recommendation for Post Discharge IV Antibiotic Management [APL187 CPT(R)] As directed Process Instructions: If no progress note charted, please enter Clinical details in comments. Scheduling Instructions: Comments: - If this order was signed greater than 72 hours prior to [facility] discharge, please call to confirm the accuracy of this order. Please Fax all results to: [facility] Program Infectious Disease Section [facility], [facility], [place] [address] FAX: - After hours, please contact the Infectious Disease Physician circulation tender at . - Line care instructions - see flush/heparin orders. Facilities may follow organizational policies/practices regarding heparin. - intermediate for medication administration/mold yard supervisor and catheter care/maintenance authorized. - CVC/PICC Dressing Change weekly and PRN Please use CHG or Bio Patch RN: Please care for PICC line including dressing changes weekly and prn. Please draw labs every Wednesday and PRN and fax results to [facility] at [phone]. Please draw labs off PICC line. Please see [facility] for lab draw details. Please RN visit for IV ABX teaching and ongoing assessment. [facility] for Medication Administration/Hookup and catheter care/maintenance: - Teach Patient/Caregiver goals/self-monitoring/therapy administration to independence per the Nursing Care Plan. - intermediate visit frequency; initial, weekly and 2 PRN visits for complications and/or issueswith therapy for the duration of therapy. - Insert/maintain/replace/remove vascular access device as needed when clinically appropriate and per the Nursing Care Plan. ( PIV: 22 - 24 qauqe) - Change VAD dressing, extension set and needleless connector weekly and 2 PRN visits for complications and/or issues with therapy for the duration of therapy. Disinfect site with CHG or Betadine/alcohol, may use antimicrobial patch to site routinely or as needed. - If ordered, may draw labs via Central line or peripherally and flushed per orders. 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 on 09/28 Microorganisms being treated: MRSA Special Instructions: Antibiotic: Daptomycin 700mg IV daily Start date: 10/09/2024 Anticipated stop date: 11/10/2024 Labs: Q Wednesday: CBC/Diff, CMP Q Wednesday CPK Attending Responsible for IV Antimicrobials: Amaya Hernandez MD Referral for Outpatient Antibiotics [ZHM9918 CPT(R)] As directed Process Instructions: Scheduling Instructions: Comments: See OPAT orders Questions: Vendor / contact information: [facility] Patient location post discharge: Home Service requested: IV abx Start date: Responsible MD post discharge contact info: PCP Referral to Home Health [REF34 Custom] As directed Process Instructions: If no progress note charted, please enter Clinical details in comments. Scheduling Instructions: Comments: Please evaluate Geovanna Dixno Jr. for admission to Home Health. [address] [facility] [address] Phone Number: [phone] (home) Date of : 1975 Inpatient DOCUMENTATION FOR VNA SERVICES (INCLUDING THOSE PATIENTS WITH MEDICARE COVERAGE REQUIRING HOME VNA SERVICES AND/OR HOSPICE SERVICES) PATIENT'S LOCATION: Geovanna Dixon Jr. [address] [facility] [address] [phone] (home) Cell: Telephone Information: Belt Back Operator's Name: Geovanna In discussion with the attending physician, it is certified that this patient is under their care and that they, or a Nurse Practitioner, Clinical Nurse specialist or Physician Industrial Retrofit Designer who is working directly with them, had a face to face encounter that meets the physician face to face encounter requirements with this patient on 10/10/24 The encounter with the patient was in whole, or in part, for the following medical condition, whichis the primary reason for home health care services: physical therapy and occupational therapy for deconditioning and strengthening, nursing care for infusions and wound care In discussion with the provider, it is certified that, based on their findings, the following services are medically necessary for home health services. To provide the following care/treatments with the clinical findings supporting the need for services as follows: HOME CARE ORDERS: RN ORDERS: Assess vital signs, cardiopulmonary status, nutrition, hydration, elimination -Additional Orders: Assess wound or incision: Please change wound vac 3x weekly, MWF. Each site has 1 black sponge - Groin, medial thigh and medial calf are Y connected to device. Please report any sanguinous drainage. Please perform wet to dry dressings for medial thigh wound just below medial wound vac site. These should be daily. Please cover with dry gauze and medipore tape. Patient has one remaining RAY drain to bulb suction in left groin. Please report excessive, malodorous or sanguinous drainage. He should strip the drain daily and report drainage more than 30 mL in a 24 hour period. His cameron can remain open to air. PT ORDERS: Continue rehab for endurance, gait stability and strength with mobility and transfers. Home safety evaluation. Home exercise program if appropriate. OT ORDERS: Assess and continue rehab for managing ADLs. HOME HEALTH CARE AGENCY: [facility]. [address] [place] [address] START OF CARE: within 24-48 hours of discharge Patient has Medicare Please note that any additional orders needs or changes will need to be obtained from this patient's PCP: JUSTIN Roberson [address] [facility] [address] . All VNA agencies which cover the area of patient's residence have been reviewed, either verbally or in writing, andpatient/family have chosen the home health care agency noted. Questions: Disciplines Requested: Nursing Physical Therapy Occupational Therapy Recurring Lab Work Interval Expires CBC (with Diff) [[id number] Custom] Once a week until 12/10/2024 12/10/2024 Process Instructions: Scheduling Instructions: Comments: Questions: CK [LAB62 Custom] Once a week until 12/10/2024 12/10/2024 Process Instructions: Scheduling Instructions: Comments: Questions: Comprehensive metabolic panel Non-fasting [LAB17 Custom] Once a week until 12/10/2024 12/10/2024 Process Instructions: Scheduling Instructions: Comments: Questions: Fasting required?: Non-fasting Anticoagulation & Antiplatelet: Anticoagulation: none Antiplatelet: Aspirin 81 mg Indication: flow, vessel patency Intended Duration: lifetime For any problems or questions please call [phone] For issues on weeknights after 5pm and weekends please call [phone] and ask for the Vascular Fellow circulation tender. Discharge Medications: Your Medications New Medications Dose Details alteplase 2 mg Recon Soln Commonly known as: Cathflo Instill reconstituted alteplase (Cathflo) 2 mg per instillation (based on volume of lumen). May repeat x1 per occlusion Quantity: 1 each Refills: PRN DAPTOmycin 350 mg injection solution Commonly known as: Cubicelysia Inject 700 mg into the vein daily for 32 days. EOT 11/10/24 700 mg Quantity: 64 each Refills: 0 heparin flush (porcine) 10 unit/mL Solution Inject 3 mLs into [...] and then heparin (10 units/mL) 3 mL 3 mL Quantity: 100 each Refills: PRN sodium chloride 0.9 % (flush) Syringe Commonly known as: BD PosiFlush Normal Saline 0.9 Inject 10 mLs into the vein as needed (For Line Patency - See Instructions). FLUSH PROTOCOL WITH MEDICATIONS ([facility]): Before med infusion: flush with NS [...] (10 units/mL) 3 mL. // FLUSH WITHOUT MEDICATION:Twice Daily & PRN: flush with NS 10 mL and then heparin (10 units/mL) 3 mL 10 mL Quantity: 100 each Refills: PRN Continued medications with new dosing Dose Details * insulin glargine 100 unit/mL (3 mL) pen Commonly known as: Lantus Inject 50 Units subcutaneously nightly. What changed: Another medication with the same name was changed. Make sure you understand how and when to take each. 50 Units Quantity: 3 mL Refills: 11 * Lantus Solostar U-100 Insulin 100 unit/mL (3 mL) pen Inject 25 Units subcutaneously 2 times daily. Indications: type 2 diabetes mellitus Generic drug: insulin glargine What changed: how much to take when to take this 25 Units Quantity: 15 mL Refills: 1 * insulin lispro 100 unit/mL Insulin Pen Commonly known as: humaLOG KwikPen Inject 5-25 Units subcutaneously 3 times daily (with meals). Indications: type 2 diabetes mellitus,whatver the most affordable version is for his insurance What changed: Another medication with the same name was changed. Make sure you understand how and when to take each. 5-25 Units Quantity: 15 mL Refills: 1 * insulin lispro 100 unit/mL Insulin Pen Commonly known as: humaLOG KwikPen Inject SQ 3 times daily before meals: 8-16 unit meal dose plus sliding scale 1:15>150 - see insulin chart for instructions Indications: type 2 diabetes mellitus What changed: additional instructions Quantity: 15 mL Refills: 0 metFORMIN 1,000 mg tablet Commonly known as: Glucophage Take 1 tablet by mouth 2 times daily (with meals). Indications: type 2 diabetes mellitus What changed: Another medication with the same name was removed. Continue taking this medication, and follow the directions you see here. 1,000 mg Quantity: 180 tablet Refills: 1 * This list has 4 medication(s) that are the same as other medications prescribed for you. Read thedirections carefully, and ask your doctor or other care provider to review them with you. Continued medications, unchanged Dose Details acetaminophen 500 mg tablet Commonly known as: Tylenol Take 2 tablets by mouth every 6 hours as needed for Pain. 1,000 mg Quantity: 30 tablet Refills: 0 amLODIPine 5 mg tablet Commonly known as: Norvasc Take 5 mg by mouth daily. 5 mg Refills: 0 aspirin EC 81 mg EC (DR) tablet Take 1 tablet by mouth daily. 81 mg Quantity: 30 tablet Refills: 3 empagliflozin 25 mg tablet Commonly known as: Jardiance Take 1 tablet by mouth daily. 25 mg Quantity: 30 tablet Refills: 0 freestyle lite strips 1 strip by Other route 3 times daily. Use as instructed Indications: diabetes Generic drug: blood sugar diagnostic strips 1 each Quantity: 100 each Refills: 1 insulin needles (disposable) 32 gauge [...] 1 each Quantity: 100 each Refills: 0 lisinopriL 40 mg tablet Commonly known as: Zestril Take 40 mg by mouth daily. 40 mg Refills: 0 losartan 50 mg tablet Commonly known as: Cozaar Take 1 tablet by mouth daily. 50 mg Quantity: 90 tablet Refills: 3 methylphenidate 20 mg tablet Commonly known as: Ritalin Take 20 mg by mouth 3 times daily. 20 mg Refills: 0 metoprolol succinate XL 25 mg ER 24 hr tablet Commonly known as: Toprol-XL Take 1 tablet by mouth daily. 25 mg Quantity: 30 tablet Refills: 12 omeprazole 20 mg Tablet,Rapid Dissolve, DR Take 40 mg by mouth Daily at Noon. 40 mg Refills: 0 protriptyline 5 mg tablet Commonly known as: Vivactil Take 10 mg by mouth every 8 hours. 10 mg Refills: 0 rOPINIRole 0.25 mg tablet Commonly known as: Requip Take 0.5 mg by mouth every evening. 0.5 mg Refills: 0 senna-docusate 8.6-50 mg Tablet Commonly known as: Pericolace Take 2 tablets by mouth 2 times daily. 2 tablet Quantity: 60 tablet Refills: 11 Trulicity 1.5 mg/0.5 mL [...] to review them with you. STOPPED Medications atorvastatin 80 mg tablet Commonly known as: Lipitor rivaroxaban 20 mg tablet Commonly known as: Xarelto UNREVIEWED medications - Discuss With Your Provider Dose Details nitroGLYcerin 0.4 mg sublingual tablet Commonly known as: Nitrostat Place 1 tablet under the tongue daily as needed for Chest pain. 0.4 mg Quantity: 25 tablet Refills: 1 oxyCODONE 5 mg tablet Commonly known as: Roxicodone Take 1 tablet by mouth every 4 hours as needed for Pain (severe pain refractory to Tyelnol). 5 mg Quantity: 10 tablet Refills: 0 Updated Allergies/ADRs: No Known Allergies Follow-up Recommendations for Providers: - Please follow up on wound management and healing - incision with vicryl and cameron. Please assess at one week wound check Instructions Given to Patient at Discharge: Patient Instructions Patient Instructions You were admitted after having an infection to your graft. You underwent multiple surgeries. All ofthis went very well. Your physician will want you to be seen in approximately 1 weeks for a wound check. All of this will be ordered and sent to you in the mail. If for some reason you don't receive this within a week or so please call our office as your followup is very important. You have been ordered blood work with your appointment in one week. You can get this completed at 3L at [facility] prior to your scheduled appointment. Stop atorvastatin while you are taking your IV antibiotics. You may restart this once IV antibiotics are finished. Anticoagulation: none. Continue taking Aspirin 81 mg daily Call your doctor if: Any fever, any drainage, redness or separation of your incisions, increased pain or change in temperature of your leg Activity level: up as tolerated but watch for swelling of your leg. Manage this with leg elevation,toes higher than your nose. Diet: resume your previous regular diet Driving: none right now with pain medication use Shower/Bath: you may shower and wash on days when your home health nurse will visit to change your wound vac dressings. Please try to avoid direct water to your wound vac sites, wrap leg in plastic as tolerated. Can disconnect from wound vac suction device for less than two hours for shower/sponge bath. Please coordinate this approximately an hour before home care arrives so they can change/address any saturation. NO bathing or immersing yourself in water. Wound care: Please change wound vac 3x weekly, MWF. Each site has 1 black sponge - Groin, medial thigh and medial calf are Y connected to device. Please report any sanguinous drainage. Please perform wet to dry dressings for medial thigh wound just below medial wound vac site. These should be daily. Please cover with dry gauze and medipore tape. Patient has one remaining RAY drain to bulb suction in left groin. Please report excessive, malodorous or sanguinous drainage. He should strip the drain daily and report drainage more than 30 mL in a 24 hour period. His cameron can remain open to air. For any problems or questions please call [phone] For issues on weeknights after 5pm and weekends please call [phone] and ask for the Vascular Fellow circulation tender. documented in this encounter Discharge Instructions * Discharge Instructions* Thuy Jiang APRN - 10/10/2024 8:26 AM EST FOR D/C: Diabetes Discharge Instructions & Recommendations Check blood sugars when you wake up, before meals, bedtime, anytime you don't feel well. Restart Metformin 1000mg twice daily with meals Hold Jardiance until your wounds are healed. See new Lantus and Humalog doses below - you should be taking Humalog 3 times daily before meals. IF YOU EVER GO back on Trulicity, your Humalog doses will [...] for insulin glargine (Lantus) Insulin (LONG ACTING) TWICE A DAY Please inject Lantus 25 units every evening and 25 units in the AM If your fasting blood sugars are above 150mg/dl two days in a row, please increase your night time Lantus by 2 units. If your fasting blood sugars are below 90mg/dl two days in a row, please decrease your night time Lantus by 2 units. This dose now becomes your new daily dose unless it need to be further adjusted based on future glucose readings. Instructions for insulin lispro (Humalog) Mealtime & Correction Insulin Test your blood sugar ideally 15 minute before you plan to eat. We think your insulin to carb ratiois one unit cover 5 grams of carbohydrates Estimate the size of meal (normal, big, small): Normal meal (60-70g carbs) Please inject a base dose of Humalog 12 units with meals. If you are eating a larger meal (80-100g), please increase your Humalog to 16 units. If you are eating a smaller meal (45-60g), please decrease your Humalog to 8 units. If you are not eating any [...] BG 141 - 155 ADD 1 unit to the food insulin BG 156 - 170 ADD 2 units to the food insulin BG 171 - 185 ADD 3 units to the food insulin BG 186 - 200 ADD 4 units to the food insulin BG 201 - 215 ADD 5 units to the food insulin BG 216 - 230 ADD 6 units to the food insulin BG 231 - 245 ADD 7 units to the food insulin BG 246 - 260 ADD 8 units to the food insulin BG 261 - 275 ADD 9 unitsto the food insulin BG 276 - 290 ADD 10 units to the food insulin BG greater than 290, ADD 11 units [...] day to have your insulin doses adjusted. .What should you know about eating carbs? Managing the amount of carbohydrate (carbs) you eat is an important part of healthy meals when you have diabetes. Carbohydrate is found in many foods. Learn which foods have carbs. And learn the amounts of carbs in different foods. Bread, cereal, pasta, and rice have about 15 grams of carbs in a serving. A serving is 1 slice of bread (1 ounce), ?? cup of cooked cereal, or 1/3 cup of cooked pasta or rice. Fruits have 15 grams of carbs in a serving. A serving is 1 small fresh fruit, such as an apple or orange; ?? of a banana; ?? cup of cooked or canned fruit; ?? cup of fruit juice; 1 cup of melon or raspberries; or 2 tablespoons of dried fruit. Milk and [id number] yogurt have 15 grams of carbs in a serving. A serving is 1 cup of milk or 3/4 cup (6 oz) of hx-[id number]-[id number] yogurt. Starchy vegetables have 15 grams of carbs in a serving. A serving is ?? cup of mashed potatoes or sweet potato; 1 cup winter squash; ?? of a small baked potato; ?? cup of cooked beans; or ?? cup cooked corn or green peas. Learn how much carbs to eat each day and at each meal. A dietitian or certified medicine aide can teach you how to keep track of the amount of carbs you eat. This is called carbohydrate counting. If you are not sure how to count carbohydrate grams, use the plate method to plan meals. It is a quick way to make sure that you have a balanced meal. It also can help you manage the amount of carbohydrate you eat at meals. Divide your plate by types of foods. Put non-starchy vegetables on half the plate, meat or other protein food on one-quarter of the plate, and a grain or starchy vegetable in the final quarter of theplate. To this you can add a small piece of fruit and 1 cup of milk or yogurt, depending on how many carbs you are supposed to eat at a meal. Try to eat about the same amount of carbs at each meal. Do not save up your daily allowance of carbs to eat at one meal. Proteins have very little or no carbs. Examples of proteins are beef, chicken, turkey, fish, eggs, tofu, cheese, cottage cheese, and peanut butter. * Patient Instructions* María Carranza APRN - 10/03/2024 10:05 AM EST Patient Instructions You were admitted after having an infection to your graft. You underwent multiple surgeries. All ofthis went very well. Your physician will want you to be seen in approximately 1 weeks for a wound check. All of this will be ordered and sent to you in the mail. If for some reason you don't receive this within a week or so please call our office as your followup is very important. You have been ordered blood work with your appointment in one week. You can get this completed at 3L at [facility] prior to your scheduled appointment. Stop atorvastatin while you are taking your IV antibiotics. You may restart this once IV antibiotics are finished. Anticoagulation: none. Continue taking Aspirin 81 mg daily Call your doctor if: Any fever, any drainage, redness or separation of your incisions, increased pain or change in temperature of your leg Activity level: up as tolerated but watch for swelling of your leg. Manage this with leg elevation,toes higher than your nose. Diet: resume your previous regular diet Driving: none right now with pain medication use Shower/Bath: you may shower and wash on days when your home health nurse will visit to change your wound vac dressings. Please try to avoid direct water to your wound vac sites, wrap leg in plastic as tolerated. Can disconnect from wound vac suction device for less than two hours for shower/sponge bath. Please coordinate this approximately an hour before home care arrives so they can change/address any saturation. NO bathing or immersing yourself in water. Wound care: Please change wound vac 3x weekly, MWF. Each site has 1 black sponge - Groin, medial thigh and medial calf are Y connected to device. Please report any sanguinous drainage. Please perform wet to dry dressings for medial thigh wound just below medial wound vac site. These should be daily. Please cover with dry gauze and medipore tape. Patient has one remaining RAY drain to bulb suction in left groin. Please report excessive, malodorous or sanguinous drainage. He should strip the drain daily and report drainage more than 30 mL in a 24 hour period. His cameron can remain open to air. For any problems or questions please call [phone] For issues on weeknights after 5pm and weekends please call [phone] and ask for the Vascular Fellow circulation tender. documented in this encounter Medications at Time of Discharge Medication Sig Dispensed Refills Start Date End Date insulin lispro (humaLOG KwikPen) 100 unit/mL Insulin PenIndications:type 2 diabetes mellitus Inject SQ 3 times daily before meals: 8-16 unit meal dose plus sliding scale 1:15>150 - see insulin chart for instructions Indications: type 2 diabetes mellitus 15 mL 10/10/2024 Lantus Solostar U-100 Insulin 100 unit/mL (3 mL) penIndications:type 2 diabetes mellitus Inject 25 Units subcutaneously 2 times daily. Indications: type 2 diabetes mellitus 15 mL 1 10/10/2024 DAPTOmycin (Cubicin) 350 mg injection solution Inject 700 mg into the vein daily for 32 days. EOT 11/10/24 64 each 10/09/2024 11/10/2024 sodium chloride 0.9 %, flush, (BD PosiFlush [...] (10 units/mL) 3 mL 100 each 10/09/2024 heparin flush, porcine, 10 unit/mL Solution Inject [...] (10 units/mL) 3 mL 100 each 10/09/2024 alteplase (Cathflo) 2 mg Recon Soln Instill reconstituted alteplase (Cathflo) 2 mg per instillation (based on volume of lumen). May repeat x1 per occlusion 1 each 10/09/2024 methylphenidate (Ritalin) 20 mg tablet Take 20 [...] pain refractory to Tyelnol). 10 tablet 08/03/2024 senna-docusate (Pericolace) 8.6-50 mg Tablet Take 2 [...] 2 diabetes mellitus 180 tablet 1 07/21/2024 insulin needles, disposable, 32 gauge [...] 50 Units subcutaneously nightly. 3 mL 07/21/2024 losartan (Cozaar) 50 mg tablet Take 1 tablet by mouth daily. 90 tablet 3 06/03/2024 metoprolol succinate XL (Toprol-XL) 25 mg ER 24 hr tablet Take 1 tablet by mouth daily. 30 tablet 12 06/03/2024 dulaglutide (Trulicity) 1.5 mg/0.5 mL Pen InjectorIndications [...] mg by mouth Daily at Noon. 03/07/2024 nitroGLYcerin (NITROSTAT) 0.[address] [...] as of this encounter Progress Notes * Milly Lomeli RN - 10/10/2024 12:42 PM EST Infectious Disease/OPAT Program Teaching Visit Met with patient at bedside to discuss discharge on IV ABX. Patient given and reviewed OPAT package including OPAT order, PICC line care including dressing changes weekly & prn, weekly & prn labs, potential issues, what they might mean and who to contact. Reviewed roles and responsibilities of [employer] and infusion vendor. Contact information for ID and Vascular team/clinic, [employer] and infusion vendor given to pt. Discussed f/u appointments in ID 5C clinic, telephone and tele health. Pt verbalized understanding. All questions answered. IV & PO ABX Medications: Daptomycin 700mg IV daily Start/anticipated end date: 10/10/24-11/10/24 [employer]: [place] [facility] vendor: [employer] [facility] IV Access: 4 Fr. single lumen Bard Power catheter was placed into the left basilic vein over a 0.018 inch guidewire using modified seldinger technique and fluoroscopy. Arm circumference was 32 cm at 2 cm above the insertion site. Final catheter length (with trimming): 50 cm Internal: 50 cm External: 0 cm Placed: 10/09/24 Plan: discharge on OPAT program when medically ready. F/u: Apts are made Weekly labs CPK CRP CMP CBC/diff * Thuy Jiang APRN - 10/10/2024 8:17 AM EST Images from the original note were not included. .Follow Up Diabetes Consult Patient Interview Going home-discussed and reviewed discharge plan Insulin plan reviewed and updated Has 2 types of metformin plan and ER I advised choose one and use Says has 2 types of short acting insulin-I said choose one-we have been using humalog/lispro/ See PCP and bring all to the office when you see them with your blood sugars Objective Temp: [36.4 ??C (97.5 ??F)-37.2 ??C (99 ??F)] Heart Rate: -- Resp: [18] BP: (122-136)/(77-93) SpO2: [97 %-99 %] Heart Rate from SpO2: [90 bpm-102 bpm] Current Regimen Lantus- 25 units BID, Lispro 1:5 insulin to carbohydrate ratio Lispro for correction q 4 hours based on a correction factor of moderate Diet NPO Monitoring: Q4 Recent Glucose Levels Recent Labs 10/10/24 0746 10/10/24 0611 10/10/24 0031 10/09/24 2016 10/09/24 1557 10/09/24 1140 10/09/24 0735 10/09/24 0426 10/09/24 0011 10/08/24 1925 10/08/24 1754 10/08/24 1608 POCGLU 141 127 119 104 120 180 215* 175 157 157 198 281* ASSESSMENT Geovanna Dixon Jr. is a 49 y.o. male with PMH of CAD c/b NSTEMI in 2011 now s/p 2v CABG and PCI x2, HFrEF (LVEF 47% in May 2024), HTN, HLD, insulin dependent diabetes, narcolepsy, substance use (cocaine), and PAD c/b critical limb ischemia of his left-lower extremity now s/p LEFT femoral to below-knee popliteal artery bypass on 08/01/[address] Dickson who now presents to the surgical ICU for treatment and evaluation of sepsis 2/2 vascular graft associated infection. A1C updated and 9.7%,down from12.6% this summer. Since his discharge he has been using basal bolus insulin and blood sugars were mostly in 100s until more recently when they elevated to 200s. Currently has variability of blood glucose levels while hospitalized requiring adjustment of insulin regimen and DM medications PLAN Lantus- 25 units BID, Lispro 1:5 insulin to carbohydrate ratio Lispro for correction q 4 hours based on a correction factor of moderate Diet NPO Monitoring: Q4 FOR D/C: Diabetes Discharge Instructions & Recommendations Check blood sugars when you wake up, before meals, bedtime, anytime you don't feel well. Restart Metformin 1000mg twice daily with meals Hold Jardiance until your wounds are healed. See new Lantus and Humalog doses below - you should be taking Humalog 3 times daily before meals. IF YOU EVER GO back on Trulicity, your Humalog doses will [...] for insulin glargine (Lantus) Insulin (LONG ACTING) TWICE A DAY Please inject Lantus 25 units every evening and 25 units in the AM If your fasting blood sugars are above 150mg/dl two days in a row, please increase your night time Lantus by 2 units. If your fasting blood sugars are below 90mg/dl two days in a row, please decrease your night time Lantus by 2 units. This dose now becomes your new daily dose unless it need to be further adjusted based on future glucose readings. Instructions for insulin lispro (Humalog) Mealtime & Correction Insulin Test your blood sugar ideally 15 minute before you plan to eat. We think your insulin to carb ratiois one unit cover 5 grams of carbohydrates Estimate the size of meal (normal, big, small): Normal meal (60-70g carbs) Please inject a base dose of Humalog 12 units with meals. If you are eating a larger meal (80-100g), please increase your Humalog to 16 units. If you are eating a smaller meal (45-60g), please decrease your Humalog to 8 units. If you are not eating any [...] BG 141 - 155 ADD 1 unit to the food insulin BG 156 - 170 ADD 2 units to the food insulin BG 171 - 185 ADD 3 units to the food insulin BG 186 - 200 ADD 4 units to the food insulin BG 201 - 215 ADD 5 units to the food insulin BG 216 - 230 ADD 6 units to the food insulin BG 231 - 245 ADD 7 units to the food insulin BG 246 - 260 ADD 8 units to the food insulin BG 261 - 275 ADD 9 unitsto the food insulin BG 276 - 290 ADD 10 units to the food insulin BG greater than 290, ADD 11 units [...] day to have your insulin doses adjusted. .What should you know about eating carbs? Managing the amount of carbohydrate (carbs) you eat is an important part of healthy meals when you have diabetes. Carbohydrate is found in many foods. Learn which foods have carbs. And learn the amounts of carbs in different foods. Bread, cereal, pasta, and rice have about 15 grams of carbs in a serving. A serving is 1 slice of bread (1 ounce), ?? cup of cooked cereal, or 1/3 cup of cooked pasta or rice. Fruits have 15 grams of carbs in a serving. A serving is 1 small fresh fruit, such as an apple or orange; ?? of a banana; ?? cup of cooked or canned fruit; ?? cup of fruit juice; 1 cup of melon or raspberries; or 2 tablespoons of dried fruit. Milk and mr-qpqee-xyasj yogurt have 15 grams of carbs in a serving. A serving is 1 cup of milk or 3/4 cup (6 oz) of hz-dqbgd-qqxcj yogurt. Starchy vegetables have 15 grams of carbs in a serving. A serving is ?? cup of mashed potatoes or sweet potato; 1 cup winter squash; ?? of a small baked potato; ?? cup of cooked beans; or ?? cup cooked corn or green peas. Learn how much carbs to eat each day and at each meal. A dietitian or certified medicine aide can teach you how to keep track of the amount of carbs you eat. This is called carbohydrate counting. If you are not sure how to count carbohydrate grams, use the plate method to plan meals. It is a quick way to make sure that you have a balanced meal. It also can help you manage the amount of carbohydrate you eat at meals. Divide your plate by types of foods. Put non-starchy vegetables on half the plate, meat or other protein food on one-quarter of the plate, and a grain or starchy vegetable in the final quarter of theplate. To this you can add a small piece of fruit and 1 cup of milk or yogurt, depending on how many carbs you are supposed to eat at a meal. Try to eat about the same amount of carbs at each meal. Do not save up your daily allowance of carbs to eat at one meal. Proteins have very little or no carbs. Examples of proteins are beef, chicken, turkey, fish, eggs, tofu, cheese, cottage cheese, and peanut butter. We will call about getting you to see us in clinic (Dr Grover) 40 minutes of this 50 minute visit was spent with the patient in counseling on diabetes and treatment plan, reviewing all glucose and insulin data as well as relevant laboratory results with the patient, and coordination of care on the inpatient unit including nursing and primary team. * Fabián Burrows OT - 10/09/2024 3:33 PM EST Occupational Therapy Note Document Type: contact Total Minutes, Occupational Therapy: 8 Reason: Met with patient this afternoon, reports that he is independent in room with ADLs and has no concerns related to OT at this time. OT to complete orders. Pager: [phone] Fabián Burrows OT 10/09/2024 Occupational Therapy Rehabilitation Department * Karolyn Hudson MD - 10/09/2024 12:57 PM EST Images from the original note were not included. Wound Vac Change Procedure Note Procedure Details: Patient was given pain medication prior to procedure. Wound vac negative pressure therapy was paused and 10cc of 1% lidocaine was administered through the wound vac tubing for additional analgesia. Starting with the left groin wound, plastic and 1 black sponge were removed from the wound carefully with the use of saline bullets to minimize tissue damage. The proximal aspect of the left groin wound was probed with a sterile q-tip deep to the subcutaneous tissue to determine the extent of the wound that required packing. Wound edges were windowed with plastic adhesive to protect skin edges. Wound measurements were obtained, see photos included in chart. 1 piece of Black sponge was used to pack in wound, taking care to pack deep to the subcutaneous tissue proximally, with a bridge for virginie pad placement and covered by plastic. The sponge was exposed and virginie pad placed, and 125 mmHg continuous negative pressure therapy was initiated on the left groin wound without issue. We then repeated the wound vac sponge removal process for both the distal left thigh wound and the left leg wound,removing 1 black sponge from each. A total of 3 black sponges were removed. At the completion of the procedure, 125mmHg continuous negative pressure therapy was initiated on each wound without signs of leakage. The patient tolerated the procedure well with no complications. Vital signs stable. Estimated Blood Loss: None Karolyn Hudson MD Vascular Surgery, [id number] 10/09/24 * Terry Jimenez, PT - 10/09/2024 12:02 PM EST Physical Therapy Visit #2 Patient profile: Geovanna Dixon Jr. is a 49 y.o. male with a history of HTN, HLD, NSTEMI, CAD s/p CABG (12/2011), DM,obesity, PAD s/p L iliofem endart and L fem-BK pop bypass and L 2nd toe amputation who was transferred from [facility], 09/26/24 given concern for infected left fem-BK popliteal PTFE bypass. He is now s/p an explant of an infected left femoral-below knee popliteal artery bypass graft (09/26), I/D groin abscess (09/27), L GSV harvest, vein patch angioplasty, L [employer] and BK pop w/ sartorius flap L fem, I/D, 09/29 L sartorius flap revision, vac change. 10/03/24 NPO at [facility] for OR wound exploration. Wound vac off due to not holding suction. White sponge removed from incision on rounding. WTD dressings applied. Pain controlled. Will reach out to IDtoday to see if they want HELEN now or after antibiotic therapy. Yousif to return to OR tomorrow for washout and wound vac replacement. Prior vascular history 08/01/2024: Left iliofemoral endarterectomy and left femoral to below-knee popliteal artery bypass with 7mm ringed PTFE 07/19/2024: Left 2nd toe amputation Per Vascular surgery Operations this hospitalization: 09/26/2024: explant of infected left femoral-below knee popliteal artery bypass graft 09/27/2024: Evacuation of abscess in left posterior thigh compartment via AK popliteal incision Irrigation of left groin and calf incision sites 09/28/2024: left great saphenous vein harvest, vein patch angioplasty L common femoral artery and BK popliteal artery, sartorius flap placement over L femoral artery, excisional debridement and washout of L groin with wound vac placement 09/29/2024: repeat exploration of L femoral artery and LLE washout, wound vac placement L calf 10/02/24 DEBRIDEMENT SKIN, SUBCU, MUSCLE, LOWER EXTREMITY (WRVU 2.7) (Left) Interval History: 10/04 OR L LE I&D vac dressing change, 2 RAY drains. 10/06 bedside VAC dressing change. 10/06 PICC line placed. MRSA bacteremia and ID finalize OPAT; infusion center vs home. 10/09 VAC dressing change @ bedside. Social History: . Lives with sister and brother in law. One story home. One STEP without a railing Baseline Mobility: Pt has been using a FWW and L forefoot offloading shoe but not strictly, since toe amputation in July. Pt was unclear if he still needed to use the off loading shoe or not. Pt does help out withcooking and cleaning. His sister had a recent ankle/foot surgery. He drives. He is disabled and does not work. Equipment at home: FWW, cane, crutches, L forefoot offloading shoe. Fall history: none reported Precautions/Special Considerations: LLE with 3 JPs; wound vac L ant hip incision; Bleeding precautions; leukocytosis 15.33; Anemia with hgb 10.3, 10/03; PIV. Vascular team messaged 10/03/24 and pt does not need to wear off loading shoe or heel wt bear on LLE (received this information after the rehab session). Activity Orders: up in chair, bedrest orders removed 10/03. Diet: Carb control Mobility and Positioning Recommendations: Pt. to utilize FWW for transfers & gait; cont with nursing until DC. Encourage up to chair for meal times as able. Progress with ambulation, using FWW, shoes on feet preferred (does not need to wear off loading shoe on LLE, per Vascular team 10/03/24), as cleared by the surgical team. He will have family bring inL shoe (only has R here). Amb in hospital socks until footwear arrives. Subjective: ???I can walk and climb stairs but then I'd love to shave @ the sink after I'm done with you.?? Objective: Pt seen for functional mobility; preparing for DC. He mentions he'll stay with sister and [id number] upon DC. Pt resting in bed upon my entry to his room: Pain: only c/o was L calf mm's pulling when he tried to put L foot flat. Skin: L ant hip prevena vac, 1 jps LLE, CDI dressings over L medial calf and thigh incisions (secured with x span). L 2nd toe amp, healed skin. Multiple tatoos. Bed Mobility: got OOB independently. MD arrived to room to change wound VAC so he got back into bedand deferred shaving, transfer into bed (I). Transfers: Sit >< Stand: able to rise and lower from EOB to walker independently. Gait: Reminded he doesn't need the off-loading shoe on L O, I don't? He demonstrated independencewalking with FWW in his room and practiced up & down step twice then walked to BR as he was hoping to stand @ sink to shave. I noticed he kept L foot ahead and only putting wt on forefoot but could get L foot flat except then felt calf muscles pulling. Stairs: Demonstrated independence with walker up & down platform step twice leading up with R and down with L, [id number]. Balance: Sitting: NORMAL- EOB unsupported good postural control. Standing Dynamic / Gait: GOOD- walker as he felt L calf mm's pulling. Education: patient educated on leading up stair/step with stronger R LE and down with L LE first, he demonstrated understanding; using walker for balance. He only has 1 step to enter home. Patient status & mobility discussed with RN. Pt left sitting up in bed as MD arrived to change wound VAC dressings. Assessment: Geovanna Viet Dixon Jr. is hospital day #13 s/p multiple LLE surgical procedures, MRSA bacteremia, PICC line and will have out-patient antibiotics and wound VAC. Prior PT messaged Vascular teamto clarify that pt no longer needs to wear off loading shoe for L foot and now is AAT/OOB. He is demonstrating independence with transfers and gait with walker. He managed climbing up/down single step and able to enter family's home. He should do well with expected dc to home with his family support. Goals met, cleared PT for DC home. Inpatient Physical Therapy Plan: discharge inpatient Physical Therapy services ; goals met. Discharge Recommendations: Based on current findings- home (sister & ateiehk-jz-qjn's home) Consult Recommendations: No other consults recommended at this time. Equipment needs: None (has walker) Goals: To be achieved by 10/15/24: MET Pt. to perform bed mobility with modified independence. Pt. to perform sit<>stand transfers with modified independence using LRAD . Pt. to ambulate >100 feet with modified independence using a shoes for protection and LRAD . Pt. to ambulate up/down 1 step/stairs using LRAD with supervision. Pt will tolerate progression towards upright with stable vital signs. Time IN / OUT: 11:40-11:55 Total Time: 15 (TE-F) minutes TERRY JIMENEZ PT Pager: [phone] Physical Therapy Inpatient Rehabilitation Department * María Carranza APRN - 10/09/2024 11:14 AM EST Images from the original note were not included. Vascular Surgery Progress Note Geovanna Dixon Jr. is a 49 y.o. male with history of HTN, HLD, NSTEMI, CAD s/p CABG (12/2011), DM, obesity, PAD s/p L iliofem endart and L fem-BK pop bypass and L 2nd toe amputation who was transferred from [facility] given concern for infected left fem-BK popliteal PTFE bypass. At the OSH, he underwent CT LLE with contrast that demonstrated fluid surrounding the graft and he was initiated on vancomycinand cefepime. He was noted to have a lactate of 3.6. He stated that he noticed his left groin has some swelling and some drainage about a week ago that then extended down his leg over the course of the week. He stated that he presented to the clinic (unclear where) but was not given an antibiotic. Has continued to take aspirin as well as Xarelto for his bypass and stopped smoking 1 week ago. He presented to [facility] on 09/26 and went to the OR for an urgent washout and explant of the graft, with plans for serial return to the OR as indicated for definitive management. Prior vascular history 08/01/2024: Left iliofemoral endarterectomy and left femoral to below-knee popliteal artery bypass with 7mm ringed PTFE 07/19/2024: Left 2nd toe amputation Anticoagulation: Xarelto, bypass patency Antiplatelet: Aspirin Active Hospital Problems Diagnosis Vascular graft infection, initial encounter Resolved Hospital Problems No resolved problems to display. Active Non-Hospital Problems Diagnosis 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 (SVG to PDA closed 08/2013) PAD (peripheral artery disease) Peripheral artery disease Critical limb ischemia of left lower extremity Diabetes mellitus Obesity NSTEMI (non-ST elevated myocardial infarction) HTN (hypertension) Hyperlipidemia Depression Narcolepsy Scheduled Medications: polyethylene glycoL (MIRALAX) oral powder 17 g Oral BID senna-docusate 3 tablet Oral BID DAPTOmycin 8 mg/kg/dose (Adjusted) Intravenous Q24H melatonin 3 mg Oral Nightly metoprolol succinate XL 25 mg Oral Daily losartan 50 mg Oral Daily magnesium oxide 400 mg Oral BID protriptyline 10 mg Oral TID insulin glargine (Lantus;Semglee) (100 unit/mL) subcutaneous injection 25 Units Subcutaneous BID insulin lispro 1-6 Units Subcutaneous Q4H JOSE insulin lispro 0-11 Units Subcutaneous TID WC acetaminophen 975 mg Oral Q6H JOSE atorvastatin 80 mg Oral QPM aspirin EC 81 mg Oral Daily methylphenidate 20 mg Oral TID pantoprazole EC 40 mg Oral Daily venlafaxine XR 225 mg Oral Daily heparin (porcine) 5,000 Units Subcutaneous Q8H JOSE lidocaine 1 patch Transdermal Q24H Operations this hospitalization: 09/26/2024: explant of infected left femoral-below knee popliteal artery bypass graft 09/27/2024: Evacuation of abscess in left posterior thigh compartment via AK popliteal incision Irrigation of left groin and calf incision sites 09/28/2024: left great saphenous vein harvest, vein patch angioplasty L common femoral artery and BK popliteal artery, sartorius flap placement over L femoral artery, excisional debridement and washout of L groin with wound vac placement 09/29/2024: repeat exploration of L femoral artery and LLE washout, wound vac placement L calf 10/02/24 DEBRIDEMENT SKIN, SUBCU, MUSCLE, LOWER EXTREMITY (WRVU 2.7) (Left) 24 hour events/Subjective - NAEON, HDS, BM 10/08 - WBC 11.2(10.2) - cultures NGTD Objective: Temp: [36.3 ??C (97.3 ??F)-37 ??C (98.6 ??F)] Heart Rate: -- Resp: [18] BP: (117-143)/(80-90) SpO2: [97 %-98 %] Heart Rate from SpO2: [87 bpm-101 bpm] BMI: Weight: 105 kg (231 lb 7.7 oz) (09/30/24 0000) BMI (Calculated): 32.36 BMI Classification: Obese Intake/Output Summary (Last 24 hours) at 10/08/2024 1527 Last data filed at 10/08/2024 0832 Gross per 24 hour Intake -- Output 3453 ml Net -3453 ml PHYSICAL EXAM: GEN: Alert and appears stated age. Cooperative. In NAD. HEENT: Normocephalic and atraumatic. CV: Regular rate. Pulm: Breathing comfortably on room air. 95% Abd: Soft, non-distended, non-tender to palpation. Skin: Color, texture, turgor normal. No rashes or lesions. Neuro: No gross sensory or motor abnormality. Extremities: L groin incision sites with drains with minimal serosanguinous drainage. Wound vacs sponge x 3 present, holding suction well. Dressings changed at bedside, applied with ABD pads; securedwith medipore tape, no LLE erythema or edema. RAY drain x 2, small amount SS drainage Vascular: DP and PT signals present Labs: Recent Labs 10/08/24710/07/246 10/06/24 0003 WBC 10.35* 11.27* 12.26* HGB 10.2* 10.1* 10.1* HCT 31.7* 30.9* 30.9* PLATELET 778* 789* 772* Recent Labs 10/08/248 10/07/24 0006 10/06/24 0003 NA 135 139 139 K 3.8 4.0 4.3 CL 101 104 103 CO2 25 25 22 BUN 19 18 17 CREATININE 0.60* 0.61* 0.85 PHOS 3.4 4.2 4.3 CALCIUM 9.2 9.0 8.8 Microbiology: Microbiology Results (last 7 days) Procedure Component Value - Date/Time Blood culture [[id number]] (Abnormal) (Susceptibility) Collected: 09/26/24 1422 Lab Status: Edited Result - FINAL Specimen: Blood, Venous Updated: 10/07/24 0740 Blood Culture Methicillin Resistant Staphylococcus aureus Comment: detected by PCR Isolate saved. If future testing is required, contact the Microbiology Senior Systems Developer. Gram Stain Aerobic Bottle: Gram positive cocci in clusters Susceptibility Methicillin Resistant Staphylococcus aureus MINIMUM INHIBITORY CONCENTRATION VITEK 2 METHOD Clindamycin Resistant Daptomycin Susceptible Gentamicin Susceptible [1] Linezolid Susceptible Oxacillin Resistant Trimethoprim/Sulfa Susceptible Vancomycin Susceptible [1] Gentamicin is not appropriate for monotherapy for gram-positive infections. AFB culture [[id number]] Collected: 09/27/24 1654 Lab Status: Preliminary result Specimen: Tissue from Thigh, Left Updated: 10/05/24 1201 Acid Fast Bacilli Culture No acid fast bacilli isolated at 1 week. Acid Fast Stain No acid fast bacilli seen Blood culture [[id number]] Collected: 09/29/242123 Lab Status: Final result Specimen: Blood, Venous Updated: 10/04/24 2301 Blood Culture No growth at 120 hours Blood culture [[id number]] Collected: 09/29/242123 Lab Status: Final result Specimen: Blood, Venous Updated: 10/04/24 2301 Blood Culture No growth at 120 hours AFB culture [[id number]] Collected: 09/26/24 1702 Lab Status: Preliminary result Specimen: Abscess from Knee, Left Updated: 10/04/24 1201 Acid Fast Bacilli Culture No acid fast bacilli isolated at 1 week. Acid Fast Stain No acid fast bacilli seen Blood culture [[id number]] Collected: 09/28/24 1749 Lab Status: Final result Specimen: Blood, Venous Updated: 10/03/24 1901 Blood Culture No growth at 120 hours New Studies: - None Assessment & Plan: Geovanna Dixon Jr. is a 49 y.o. male with a history of HTN, HLD, NSTEMI, CAD s/p CABG (12/2011), DM,obesity, PAD s/p L iliofem endart and L fem-BK pop bypass and L 2nd toe amputation who was transferred from [facility] given concern for infected left fem-BK popliteal PTFE bypass. 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 10/09/24: Progressing well post surgically. Will pull medial thigh drain today, retain sartorius flap drain along with wound vac x 3 sponges ([facility] has approved for home vac) and WTD dressing medial thigh. PICC re-wire tentatively today, more likely tomorrow based on scheduled with single lumen for OPAT on d/c. Working with care management for options including possible infusion center. MR for discharge; pending OPAT plan with infusion center vs home. Plan: - Continue to monitor RAY drain output - OOB, AAT - Vac change M W F - ID consulted, appreciate recs, +MRSA from wound, blood cultures has cleared, ID recs Dapto 700mg daily, EOT 11/10/24 - Continue aspirin and statin - Tylenol, PRN oxy for pain control - DM management consulted, appreciate recs - Daily labs, replete PRN . - SQH ppx - ISS - Diet today: carb control 45/45/60 level1; supplements ensure TID; Anticoagulation: SQH TID for DVT prophylaxis Antiplatelet: ASA 81mg daily María Carranza APRN 10/08/2024 Pager: * Tika Louise RN - 10/08/2024 1:45 PM ESTSummary: PICC LINE DRAINAGE Images from the original note were not included. PICC Dressing Change [ ] 24 hour [ ] Weekly [x ] PRN PICC dressing change completed as per [facility] protocol. Positive pressure displacement connector (Max Plus) was changed. Mid arm circumference: [39 ] cm at [ 2 ] cm above the insertion site. External catheter measurement: [ 0 ] cm. Internal catheter measurement (per insertion note): [ ] cm. Dressing type: [ X ] Transparent with CHG [ ] Transparent with biopatch [ ] Other Site condition: [ ] Site is without redness, drainage, edema and pain/tenderness. [ X ] Other:site with clear/ yellow tinged drainage noted, leaking outside CHG gel border and dressing noted to be bubbling up. Procedure was tolerated: [X ] Well [ ] Other BEFORE: AFTER: * Vibha Benson APRN - 10/08/2024 8:42 AM EST Images from the original note were not included. Vascular Surgery Progress Note Geovanna Dixon Jr. is a 49 y.o. male with history of HTN, HLD, NSTEMI, CAD s/p CABG (12/2011), DM, obesity, PAD s/p L iliofem endart and L fem-BK pop bypass and L 2nd toe amputation who was transferred from [facility] given concern for infected left fem-BK popliteal PTFE bypass. At the OSH, he underwent CT LLE with contrast that demonstrated fluid surrounding the graft and he was initiated on vancomycinand cefepime. He was noted to have a lactate of 3.6. He stated that he noticed his left groin has some swelling and some drainage about a week ago that then extended down his leg over the course of the week. He stated that he presented to the clinic (unclear where) but was not given an antibiotic. Has continued to take aspirin as well as Xarelto for his bypass and stopped smoking 1 week ago. He presented to [facility] on 09/26 and went to the OR for an urgent washout and explant of the graft, with plans for serial return to the OR as indicated for definitive management. Prior vascular history 08/01/2024: Left iliofemoral endarterectomy and left femoral to below-knee popliteal artery bypass with 7mm ringed PTFE 07/19/2024: Left 2nd toe amputation Anticoagulation: Xarelto, bypass patency Antiplatelet: Aspirin Active Hospital Problems Diagnosis Vascular graft infection, initial encounter Resolved Hospital Problems No resolved problems to display. Active Non-Hospital Problems Diagnosis 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 (SVG to PDA closed 08/2013) PAD (peripheral artery disease) Peripheral artery disease Critical limb ischemia of left lower extremity Diabetes mellitus Obesity NSTEMI (non-ST elevated myocardial infarction) HTN (hypertension) Hyperlipidemia Depression Narcolepsy Scheduled Medications: polyethylene glycoL (MIRALAX) oral powder 17 g Oral BID senna-docusate 3 tablet Oral BID DAPTOmycin 8 mg/kg/dose (Adjusted) Intravenous Q24H melatonin 3 mg Oral Nightly metoprolol succinate XL 25 mg Oral Daily losartan 50 mg Oral Daily magnesium oxide 400 mg Oral BID protriptyline 10 mg Oral TID insulin glargine (Lantus;Semglee) (100 unit/mL) subcutaneous injection 25 Units Subcutaneous BID insulin lispro 1-6 Units Subcutaneous Q4H JOSE insulin lispro 0-11 Units Subcutaneous TID WC acetaminophen 975 mg Oral Q6H JOSE atorvastatin 80 mg Oral QPM aspirin EC 81 mg Oral Daily methylphenidate 20 mg Oral TID pantoprazole EC 40 mg Oral Daily venlafaxine XR 225 mg Oral Daily heparin (porcine) 5,000 Units Subcutaneous Q8H JOSE lidocaine 1 patch Transdermal Q24H Operations this hospitalization: 09/26/2024: explant of infected left femoral-below knee popliteal artery bypass graft 09/27/2024: Evacuation of abscess in left posterior thigh compartment via AK popliteal incision Irrigation of left groin and calf incision sites 09/28/2024: left great saphenous vein harvest, vein patch angioplasty L common femoral artery and BK popliteal artery, sartorius flap placement over L femoral artery, excisional debridement and washout of L groin with wound vac placement 09/29/2024: repeat exploration of L femoral artery and LLE washout, wound vac placement L calf 10/02/24 DEBRIDEMENT SKIN, SUBCU, MUSCLE, LOWER EXTREMITY (WRVU 2.7) (Left) 24 hour events/Subjective - NAEON - HDS - WBC 11 to 10 - Last Bowel Movement: 10/03/24 bowel reg increased 10/07 Objective: Temp: [36.5 ??C (97.7 ??F)-37 ??C (98.6 ??F)] Heart Rate: [92-94] Resp: [16-18] BP: (129-143)/(79-89) SpO2: [97 %-98 %] Heart Rate from SpO2: [87 bpm-98 bpm] BMI: Weight: 105 kg (231 lb 7.7 oz) (09/30/24 0000) BMI (Calculated): 32.36 BMI Classification: Obese Intake/Output Summary (Last 24 hours) at 10/08/2024 0842 Last data filed at 10/08/2024 0809 Gross per 24 hour Intake 550 ml Output 3213 ml Net -2663 ml PHYSICAL EXAM: GEN: Alert and appears stated age. Cooperative. In NAD. HEENT: Normocephalic and atraumatic. CV: Regular rate. Pulm: Breathing comfortably on room air. 95% Abd: Soft, non-distended, non-tender to palpation. Skin: Color, texture, turgor normal. No rashes or lesions. Neuro: No gross sensory or motor abnormality. Extremities: L groin incision sites with drains with minimal serosanguinous drainage. Wound vacs sponge x 3 present, holding suction well. Dressings changed at bedside, applied with ABD pads; securedwith medipore tape, no LLE erythema or edema. RAY drain x 2, small amount SS drainage Vascular: DP and PT signals present Labs: Recent Labs 10/08/248 10/07/246 10/06/24 0003 WBC 10.35* 11.27* 12.26* HGB 10.2* 10.1* 10.1* HCT 31.7* 30.9* 30.9* PLATELET 778* 789* 772* Recent Labs 10/08/248 10/07/246 10/06/24 0003 NA 135 139 139 K 3.8 4.0 4.3 CL 101 104 103 CO2 25 25 22 BUN 19 18 17 CREATININE 0.60* 0.61* 0.85 PHOS 3.4 4.2 4.3 CALCIUM 9.2 9.0 8.8 Microbiology: Microbiology Results (last 7 days) Procedure Component Value - Date/Time Blood culture [[id number]] (Abnormal) (Susceptibility) Collected: 09/26/24 1422 Lab Status: Edited Result - FINAL Specimen: Blood, Venous Updated: 10/07/24 0740 Blood Culture Methicillin Resistant Staphylococcus aureus Comment: detected by PCR Isolate saved. If future testing is required, contact the Microbiology Senior Systems Developer. Gram Stain Aerobic Bottle: Gram positive cocci in clusters Susceptibility Methicillin Resistant Staphylococcus aureus MINIMUM INHIBITORY CONCENTRATION VITEK 2 METHOD Clindamycin Resistant Daptomycin Susceptible Gentamicin Susceptible [1] Linezolid Susceptible Oxacillin Resistant Trimethoprim/Sulfa Susceptible Vancomycin Susceptible [1] Gentamicin is not appropriate for monotherapy for gram-positive infections. AFB culture [[id number]] Collected: 09/27/241653 Lab Status: Preliminary result Specimen: Tissue from Thigh, Left Updated: 10/05/24 1201 Acid Fast Bacilli Culture No acid fast bacilli isolated at 1 week. Acid Fast Stain No acid fast bacilli seen Blood culture [[id number]] Collected: 09/29/242123 Lab Status: Final result Specimen: Blood, Venous Updated: 10/04/24 2301 Blood Culture No growth at 120 hours Blood culture [[id number]] Collected: 09/29/242123 Lab Status: Final result Specimen: Blood, Venous Updated: 10/04/24 2301 Blood Culture No growth at 120 hours AFB culture [[id number]] Collected: 09/26/24 170 Lab Status: Preliminary result Specimen: Abscess from Knee, Left Updated: 10/04/24 1201 Acid Fast Bacilli Culture No acid fast bacilli isolated at 1 week. Acid Fast Stain No acid fast bacilli seen Blood culture [[id number]] Collected: 09/28/24 1749 Lab Status: Final result Specimen: Blood, Venous Updated: 10/03/24 1901 Blood Culture No growth at 120 hours Blood culture [[id number]] (Abnormal) Collected: 09/27/242132 Lab Status: Final result Specimen: Blood, Venous Updated: 10/02/24 0804 Blood Culture Methicillin Resistant Staphylococcus aureus Comment: Susceptibilities previously reported. Gram Stain Aerobic Bottle: Gram positive cocci in clusters Tissue Culture, Aerobic & Anaerobic [[id number]] Collected: 09/27/241653 Lab Status: Final result Specimen: Tissue from Thigh, Left Updated: 10/01/24 1554 Narrative: The following orders were created for panel order Tissue Culture, Aerobic & Anaerobic. Procedure Abnormality Status --------- ------ Tissue Culture, Aerobic ...[[id number]] Anaerobic Culture[[id number]] Final result Please view results for these tests on the individual orders. Anaerobic Culture [[id number]] Collected: 09/27/241653 Lab Status: Final result Specimen: Tissue from Thigh, Left Updated: 10/01/24 155 Anaerobic Culture No anaerobic organisms isolated Tissue Culture, Aerobic Only [[id number]] (Abnormal) (Susceptibility) Collected: 09/27/24 3208 Lab Status: Final result Specimen: Tissue from Thigh, Left Updated: 10/01/24 1318 Tissue Culture Rare Methicillin Resistant Staphylococcus aureus Gram Stain Few Neutrophils seen No microorganisms seen Susceptibility Methicillin Resistant Staphylococcus aureus VITEK 2 METHOD Ciprofloxacin Susceptible Clindamycin Resistant Gentamicin Susceptible [1] Linezolid Susceptible Oxacillin Resistant Tetracycline Susceptible [2] Trimethoprim/Sulfa Susceptible Vancomycin Susceptible [1] Gentamicin is not appropriate for monotherapy for gram-positive infections. [2] Based on tetracycline susceptibility, this organism is considered susceptible to doxycycline. New Studies: - None Assessment & Plan: Geovanna Dixon Jr. is a 49 y.o. male with a history of HTN, HLD, NSTEMI, CAD s/p CABG (12/2011), DM,obesity, PAD s/p L iliofem endart and L fem-BK pop bypass and L 2nd toe amputation who was transferred from [facility] given concern for infected left fem-BK popliteal PTFE bypass. 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 10/08/24 Doing well postoperatively. Dressings changed at bedside today, next wound vac change tomorrow. ID recs finalized OPAT Dapto 700mg Q 24 EOT 11/10/24. PICC in place for discharge. PT cleared for home with supervision. Will give PRN laxative in addtion to increased scheduled bowel reg, no BM 10/03.. Likely will be MR early this week. Plan: - Continue to monitor RAY drain output - OOB, AAT - Vac change M W F - ID consulted, appreciate recs, +MRSA from wound, blood cultures has cleared, ID recs Dapto 700mg daily, EOT 11/10/24 - Continue aspirin and statin - Tylenol, PRN oxy for pain control - DM management consulted, appreciate recs - Daily labs, replete PRN . - SQH ppx - ISS - Diet today: carb control 45/45/60 level1; supplements ensure TID; Anticoagulation: SQH TID for DVT prophylaxis Antiplatelet: ASA 81mg daily Vibha C Marcelino, MANAGEMENT LEAD 10/08/2024 Pager: [phone] * Vibha Benson APRN - 10/07/2024 8:52 AM EST Images from the original note were not included. Vascular Surgery Progress Note Geovanna Dixon Jr. is a 49 y.o. male with history of HTN, HLD, NSTEMI, CAD s/p CABG (12/2011), DM, obesity, PAD s/p L iliofem endart and L fem-BK pop bypass and L 2nd toe amputation who was transferred from [facility] given concern for infected left fem-BK popliteal PTFE bypass. At the OSH, he underwent CT LLE with contrast that demonstrated fluid surrounding the graft and he was initiated on vancomycinand cefepime. He was noted to have a lactate of 3.6. He stated that he noticed his left groin has some swelling and some drainage about a week ago that then extended down his leg over the course of the week. He stated that he presented to the clinic (unclear where) but was not given an antibiotic. Has continued to take aspirin as well as Xarelto for his bypass and stopped smoking 1 week ago. He presented to [facility] on 09/26 and went to the OR for an urgent washout and explant of the graft, with plans for serial return to the OR as indicated for definitive management. Prior vascular history 08/01/2024: Left iliofemoral endarterectomy and left femoral to below-knee popliteal artery bypass with 7mm ringed PTFE 07/19/2024: Left 2nd toe amputation Anticoagulation: Xarelto, bypass patency Antiplatelet: Aspirin Active Hospital Problems Diagnosis Vascular graft infection, initial encounter Resolved Hospital Problems No resolved problems to display. Active Non-Hospital Problems Diagnosis 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 (SVG to PDA closed 08/2013) PAD (peripheral artery disease) Peripheral artery disease Critical limb ischemia of left lower extremity Diabetes mellitus Obesity NSTEMI (non-ST elevated myocardial infarction) HTN (hypertension) Hyperlipidemia Depression Narcolepsy Scheduled Medications: vancomycin 1 g Intravenous Q8H melatonin 3 mg Oral Nightly polyethylene glycoL (MIRALAX) oral powder 17 g Oral Daily metoprolol succinate XL 25 mg Oral Daily losartan 50 mg Oral Daily magnesium oxide 400 mg Oral BID protriptyline 10 mg Oral TID insulin glargine (Lantus;Semglee) (100 unit/mL) subcutaneous injection 25 Units Subcutaneous BID insulin lispro 1-6 Units Subcutaneous Q4H JOSE insulin lispro 0-11 Units Subcutaneous TID WC acetaminophen 975 mg Oral Q6H JOSE atorvastatin 80 mg Oral QPM aspirin EC 81 mg Oral Daily methylphenidate 20 mg Oral TID pantoprazole EC 40 mg Oral Daily senna-docusate 2 tablet Oral BID venlafaxine XR 225 mg Oral Daily heparin (porcine) 5,000 Units Subcutaneous Q8H JOSE lidocaine 1 patch Transdermal Q24H Operations this hospitalization: 09/26/2024: explant of infected left femoral-below knee popliteal artery bypass graft 09/27/2024: Evacuation of abscess in left posterior thigh compartment via AK popliteal incision Irrigation of left groin and calf incision sites 09/28/2024: left great saphenous vein harvest, vein patch angioplasty L common femoral artery and BK popliteal artery, sartorius flap placement over L femoral artery, excisional debridement and washout of L groin with wound vac placement 09/29/2024: repeat exploration of L femoral artery and LLE washout, wound vac placement L calf 10/02/24 DEBRIDEMENT SKIN, SUBCU, MUSCLE, LOWER EXTREMITY (WRVU 2.7) (Left) 24 hour events/Subjective - NAEON - HDS - WBC 12 to 11 - tolerated bedside vac change yesterday with PO premed - Last Bowel Movement: 10/03/24 Objective: Temp: [36.4 ??C (97.5 ??F)-36.8 ??C (98.2 ??F)] Heart Rate: [80-94] Resp: [12-22] BP: (122-143)/(82-93) SpO2: [95 %-98 %] Heart Rate from SpO2: [81 bpm-95 bpm] BMI: Weight: 105 kg (231 lb 7.7 oz) (09/30/24 0000) BMI (Calculated): 32.36 BMI Classification: Obese Intake/Output Summary (Last 24 hours) at 10/07/2024 0852 Last data filed at 10/07/2024 0800 Gross per 24 hour Intake 1893 ml Output 4521 ml Net -2628 ml PHYSICAL EXAM: GEN: Alert and appears stated age. Cooperative. In NAD. HEENT: Normocephalic and atraumatic. CV: Regular rate. Pulm: Breathing comfortably on room air. 95% Abd: Soft, non-distended, non-tender to palpation. Skin: Color, texture, turgor normal. No rashes or lesions. Neuro: No gross sensory or motor abnormality. Extremities: L groin incision sites with drains with minimal serosanguinous drainage. Wound vacs present, holding suction well. Dressings changed at bedside, applied with ABD pads; secured with medipore tape, no LLE erythema or edema. RAY drain x 2, minimal SS drainage Vascular: DP and PT signals present Labs: Recent Labs 10/07/24 0006 10/06/24 0003 10/04/24 2350 WBC 11.27* 12.26* 12.73* HGB 10.1* 10.1* 9.8* HCT 30.9* 30.9* 30.6* PLATELET 789* 772* 709* Recent Labs 10/07/24 0006 10/06/24 0003 10/04/24 2350 NA 139 139 140 K 4.0 4.3 3.9 CL 104 103 105 CO2 25 22 24 BUN 18 17 13 CREATININE 0.61* 0.85 0.55* PHOS 4.2 4.3 4.2 CALCIUM 9.0 8.8 9.0 Microbiology: Microbiology Results (last 7 days) Procedure Component Value - Date/Time Blood culture [[id number]] (Abnormal) (Susceptibility) Collected: 09/26/24 1422 Lab Status: Edited Result - FINAL Specimen: Blood, Venous Updated: 10/07/24 0740 Blood Culture Methicillin Resistant Staphylococcus aureus Comment: detected by PCR Isolate saved. If future testing is required, contact the Microbiology Senior Systems Developer. Gram Stain Aerobic Bottle: Gram positive cocci in clusters Susceptibility Methicillin Resistant Staphylococcus aureus MINIMUM INHIBITORY CONCENTRATION VITEK 2 METHOD Clindamycin Resistant Daptomycin Susceptible Gentamicin Susceptible [1] Linezolid Susceptible Oxacillin Resistant Trimethoprim/Sulfa Susceptible Vancomycin Susceptible [1] Gentamicin is not appropriate for monotherapy for gram-positive infections. AFB culture [[id number]] Collected: 09/27/24 1654 Lab Status: Preliminary result Specimen: Tissue from Thigh, Left Updated: 10/05/24 1201 Acid Fast Bacilli Culture No acid fast bacilli isolated at 1 week. Acid Fast Stain No acid fast bacilli seen Blood culture [[id number]] Collected: 09/29/242123 Lab Status: Final result Specimen: Blood, Venous Updated: 10/04/24 2301 Blood Culture No growth at 120 hours Blood culture [[id number]] Collected: 09/29/242123 Lab Status: Final result Specimen: Blood, Venous Updated: 10/04/24 2301 Blood Culture No growth at 120 hours AFB culture [[id number]] Collected: 09/26/24 1702 Lab Status: Preliminary result Specimen: Abscess from Knee, Left Updated: 10/04/24 1201 Acid Fast Bacilli Culture No acid fast bacilli isolated at 1 week. Acid Fast Stain No acid fast bacilli seen Blood culture [[id number]] Collected: 09/28/24 1749 Lab Status: Final result Specimen: Blood, Venous Updated: 10/03/24 1901 Blood Culture No growth at 120 hours Blood culture [[id number]] (Abnormal) Collected: 09/27/242132 Lab Status: Final result Specimen: Blood, Venous Updated: 10/02/24 0804 Blood Culture Methicillin Resistant Staphylococcus aureus Comment: Susceptibilities previously reported. Gram Stain Aerobic Bottle: Gram positive cocci in clusters Tissue Culture, Aerobic & Anaerobic [[id number]] Collected: 09/27/241653 Lab Status: Final result Specimen: Tissue from Thigh, Left Updated: 10/01/24 1554 Narrative: The following orders were created for panel order Tissue Culture, Aerobic & Anaerobic. Procedure Abnormality Status --------- ------ Tissue Culture, Aerobic ...[[id number]] Anaerobic Culture[[id number]] Final result Please view results for these tests on the individual orders. Anaerobic Culture [[id number]] Collected: 09/27/241653 Lab Status: Final result Specimen: Tissue from Thigh, Left Updated: 10/01/24 1554 Anaerobic Culture No anaerobic organisms isolated Tissue Culture, Aerobic Only [[id number]] (Abnormal) (Susceptibility) Collected: 09/27/241653 Lab Status: Final result Specimen: Tissue from Thigh, Left Updated: 10/01/24 1318 Tissue Culture Rare Methicillin Resistant Staphylococcus aureus Gram Stain Few Neutrophils seen No microorganisms seen Susceptibility Methicillin Resistant Staphylococcus aureus VITEK 2 METHOD Ciprofloxacin Susceptible Clindamycin Resistant Gentamicin Susceptible [1] Linezolid Susceptible Oxacillin Resistant Tetracycline Susceptible [2] Trimethoprim/Sulfa Susceptible Vancomycin Susceptible [1] Gentamicin is not appropriate for monotherapy for gram-positive infections. [2] Based on tetracycline susceptibility, this organism is considered susceptible to doxycycline. Blood culture [[id number]] (Abnormal) Collected: 09/26/24 1845 Lab Status: Final result Specimen: Blood, Venous Updated: 10/01/24 0658 Blood Culture Methicillin Resistant Staphylococcus aureus Comment: isolated. Susceptibilities previously reported. Gram Stain Aerobic Bottle: Gram positive cocci in clusters Abscess/Wound Aspirate Culture, Aerobic & Anaerobic [[id number]] (Abnormal) Collected: 09/26/24 165 Lab Status: Final result Specimen: Abscess from Groin, Left Updated: 09/30/24 1551 Narrative: The following orders were created for panel order Abscess/Wound Aspirate Culture, Aerobic & Anaerobic. Procedure Abnormality Status --------- ------ Abscess/Wound Aspirate C...[[id number]] Abnormal Final result Anaerobic Culture[[id number]] Final result Please view results for these tests on the individual orders. Anaerobic Culture [[id number]] Collected: 09/26/24 165 Lab Status: Final result Specimen: Abscess from Groin, Left Updated: 09/30/24 1551 Anaerobic Culture No anaerobic organisms isolated Abscess/Wound Aspirate Culture, Aerobic & Anaerobic [[id number]] (Abnormal) Collected: 09/26/24 170 Lab Status: Final result Specimen: Abscess from Knee, Left Updated: 09/30/24 1551 Narrative: The following orders were created for panel order Abscess/Wound Aspirate Culture, Aerobic & Anaerobic. Procedure Abnormality Status --------- ------ Abscess/Wound Aspirate C...[[id number]] Abnormal Final result Anaerobic Culture[[id number]] Final result Please view results for these tests on the individual orders. Anaerobic Culture [[id number]] Collected: 09/26/24 1702 Lab Status: Final result Specimen: Abscess from Knee, Left Updated: 09/30/24 1551 Anaerobic Culture No anaerobic organisms isolated Sonicated Tissue/Implant Culture [[id number]] (Abnormal) Collected: 09/26/24 1716 Lab Status: Final result Specimen: Vascular Graft from Leg, Left Updated: 09/30/24 1349 Sonicated Tissue/Implant Culture Methicillin Resistant Staphylococcus aureus Comment: isolated from broth culture. Susceptibilities previously reported. Abscess/Wound Aspirate Culture, Aerobic Only [[id number]] (Abnormal) (Susceptibility) Collected: 09/26/24 1702 Lab Status: Final result Specimen: Abscess from Knee, Left Updated: 09/30/24 1337 Abscess/Wound Aspirate Culture Many Methicillin Resistant Staphylococcus aureus Gram Stain Many neutrophils Many Gram positive cocci Susceptibility Methicillin Resistant Staphylococcus aureus VITEK 2 METHOD Ciprofloxacin Susceptible Clindamycin Resistant Gentamicin Susceptible [1] Linezolid Susceptible Oxacillin Resistant Tetracycline Susceptible [2] Trimethoprim/Sulfa Susceptible Vancomycin Susceptible [1] Gentamicin is not appropriate for monotherapy for gram-positive infections. [2] Based on tetracycline susceptibility, this organism is considered susceptible to doxycycline. Abscess/Wound Aspirate Culture, Aerobic Only [[id number]] (Abnormal) (Susceptibility) Collected: 09/26/24 1650 Lab Status: Final result Specimen: Abscess from Groin, Left Updated: 09/30/24 1336 Abscess/Wound Aspirate Culture Many Methicillin Resistant Staphylococcus aureus Gram Stain Many neutrophils Many Gram positive cocci Susceptibility Methicillin Resistant Staphylococcus aureus VITEK 2 METHOD Ciprofloxacin Susceptible Clindamycin Resistant Gentamicin Susceptible [1] Linezolid Susceptible Oxacillin Resistant Tetracycline Susceptible [2] Trimethoprim/Sulfa Susceptible Vancomycin Susceptible [1] Gentamicin is not appropriate for monotherapy for gram-positive infections. [2] Based on tetracycline susceptibility, this organism is considered susceptible to doxycycline. New Studies: - None Assessment & Plan: Geovanna Dixon Jr. is a 49 y.o. male with a history of HTN, HLD, NSTEMI, CAD s/p CABG (12/2011), DM,obesity, PAD s/p L iliofem endart and L fem-BK pop bypass and L 2nd toe amputation who was transferred from [facility] given concern for infected left fem-BK popliteal PTFE bypass. 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 10/07/24 Doing well postoperatively. Dressings changed at bedside today, tolerated wound vac changeat bedside 10/06. ID recs fto be finalized as MRSA isolate is sensitive to Dapto. WIll begin dispo planning as he may be MR as soon as early next week Plan: - Continue to monitor RAY drain output - OOB, AAT - Vac change M W F - ID consulted, appreciate recs - +MRSA from wound, ID recs Vancomycin (09/26-); dc'ed Zosyn (09/26-09/28) - Continue aspirin and statin - Tylenol, PRN oxy for pain control - DM management consulted, appreciate recs - Daily labs, replete PRN . - SQH ppx - ISS - Diet today: carb control 45/45/60 level1; supplements ensure TID; Anticoagulation: SQH TID for DVT prophylaxis Antiplatelet: ASA 81mg daily Vibha Benson APRN 10/07/2024 Pager: [phone] * Jessica Renae, PT - 10/06/2024 3:21 PM EST 10/06/24 1519 Evaluation & Treatment Document Type contact Comment, Session Not Performed Attempted to see pt.. He was eating and had visitors in the room. Ptstated he would mobilize later with nursing. Spoke to nurse who stated they would have pt walk and get into the chair. Messaged Surgical team who did update post op orders to activity as tolerate. PTto follow up early next week. * Benjamin Iniguez MD - 10/06/2024 11:05 AM EST Images from the original note were not included. WOUND VAC APPLICATION NOTE Current wound vacs removed to reveal 3 open wounds measuring 8cm x 7cm x 3cm, 8.5cm x 3.5cm x 1.5cmand 10cm x 3cm x 1.5cm with budding granulation tissue present and clean wound base without surrounding erythema. Photos of the wound are filed under Scan Docs[facility]. 1 piece of black sponge cut to fit into each wound base. Covered with tegaderm drape. Lillypad attached and set to continuous negative pressure 125mmHg without evidence of leaks. Tegaderm drape dated and measurements noted. Anticipate bedside wound vac changes tbd. Benjamin Iniguez MD General Surgery 10/06/2024 11:06 AM * Benjamin Iniguez MD - 10/06/2024 11:03 AM EST Images from the original note were not included. Vascular Surgery Progress Note Geovanna Dixon Jr. is a 49 y.o. male with history of HTN, HLD, NSTEMI, CAD s/p CABG (12/2011), DM, obesity, PAD s/p L iliofem endart and L fem-BK pop bypass and L 2nd toe amputation who was transferred from [facility] given concern for infected left fem-BK popliteal PTFE bypass. At the OSH, he underwent CT LLE with contrast that demonstrated fluid surrounding the graft and he was initiated on vancomycinand cefepime. He was noted to have a lactate of 3.6. He stated that he noticed his left groin has some swelling and some drainage about a week ago that then extended down his leg over the course of the week. He stated that he presented to the clinic (unclear where) but was not given an antibiotic. Has continued to take aspirin as well as Xarelto for his bypass and stopped smoking 1 week ago. He presented to [facility] on 09/26 and went to the OR for an urgent washout and explant of the graft, with plans for serial return to the OR as indicated for definitive management. Prior vascular history 08/01/2024: Left iliofemoral endarterectomy and left femoral to below-knee popliteal artery bypass with 7mm ringed PTFE 07/19/2024: Left 2nd toe amputation Anticoagulation: Xarelto, bypass patency Antiplatelet: Aspirin Active Hospital Problems Diagnosis Vascular graft infection, initial encounter Resolved Hospital Problems No resolved problems to display. Active Non-Hospital Problems Diagnosis 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 (SVG to PDA closed 08/2013) PAD (peripheral artery disease) Peripheral artery disease Critical limb ischemia of left lower extremity Diabetes mellitus Obesity NSTEMI (non-ST elevated myocardial infarction) HTN (hypertension) Hyperlipidemia Depression Narcolepsy Scheduled Medications: vancomycin 1 g Intravenous Q8H melatonin 3 mg Oral Nightly polyethylene glycoL (MIRALAX) oral powder 17 g Oral Daily metoprolol succinate XL 25 mg Oral Daily losartan 50 mg Oral Daily magnesium oxide 400 mg Oral BID protriptyline 10 mg Oral TID insulin glargine (Lantus;Semglee) (100 unit/mL) subcutaneous injection 25 Units Subcutaneous BID insulin lispro 1-6 Units Subcutaneous Q4H JOSE insulin lispro 0-11 Units Subcutaneous TID WC acetaminophen 975 mg Oral Q6H JOSE atorvastatin 80 mg Oral QPM aspirin EC 81 mg Oral Daily methylphenidate 20 mg Oral TID pantoprazole EC 40 mg Oral Daily senna-docusate 2 tablet Oral BID venlafaxine XR 225 mg Oral Daily heparin (porcine) 5,000 Units Subcutaneous Q8H JOSE lidocaine 1 patch Transdermal Q24H Operations this hospitalization: 09/26/2024: explant of infected left femoral-below knee popliteal artery bypass graft 09/27/2024: Evacuation of abscess in left posterior thigh compartment via AK popliteal incision Irrigation of left groin and calf incision sites 09/28/2024: left great saphenous vein harvest, vein patch angioplasty L common femoral artery and BK popliteal artery, sartorius flap placement over L femoral artery, excisional debridement and washout of L groin with wound vac placement 09/29/2024: repeat exploration of L femoral artery and LLE washout, wound vac placement L calf 10/02/24 DEBRIDEMENT SKIN, SUBCU, MUSCLE, LOWER EXTREMITY (WRVU 2.7) (Left) 24 hour events/Subjective - NAEON - HDS - Last Bowel Movement: 10/03/24 Objective: Temp: [36.3 ??C (97.4 ??F)-37 ??C (98.6 ??F)] Heart Rate: [78-95] Resp: [9-21] BP: (119-158)/(74-93) SpO2: [93 %-98 %] Heart Rate from SpO2: [76 bpm-99 bpm] BMI: Weight: 105 kg (231 lb 7.7 oz) (09/30/24 0000) BMI (Calculated): 32.36 BMI Classification: Obese Intake/Output Summary (Last 24 hours) at 10/06/2024 1103 Last data filed at 10/06/2024 1012 Gross per 24 hour Intake 2638 ml Output 5186 ml Net -2548 ml PHYSICAL EXAM: GEN: Alert and appears stated age. Cooperative. In NAD. HEENT: Normocephalic and atraumatic. CV: Regular rate. Pulm: Breathing comfortably on room air. 95% Abd: Soft, non-distended, non-tender to palpation. Skin: Color, texture, turgor normal. No rashes or lesions. Neuro: No gross sensory or motor abnormality. Extremities: L groin incision sites with drains with minimal serosanguinous drainage. Wound vacs present, holding suction well. Dressings changed at bedside, applied with ABD pads; secured with medipore tape, no LLE erythema or edema. Vascular: DP and PT signals present Labs: Recent Labs 10/06/24 0003 10/04/24 2350 10/04/24 0008 WBC 12.26* 12.73* 12.58* HGB 10.1* 9.8* 9.4* HCT 30.9* 30.6* 28.8* PLATELET 772* 709* 670* Recent Labs 10/06/24 0003 10/04/24 2350 10/04/24 0008 NA 139 140 138 K 4.3 3.9 4.4 CL 103 105 105 CO2 BUN 17 13 19 CREATININE 0.85 0.55* 0.56* PHOS 4.3 4.2 3.7 CALCIUM 8.8 9.0 8.7 Microbiology: Microbiology Results (last 7 days) Procedure Component Value - Date/Time AFB culture [[id number]] Collected: 09/27/24 165 Lab Status: Preliminary result Specimen: Tissue from Thigh, Left Updated: 10/05/24 1201 Acid Fast Bacilli Culture No acid fast bacilli isolated at 1 week. Acid Fast Stain No acid fast bacilli seen Blood culture [[id number]] Collected: 09/29/242123 Lab Status: Final result Specimen: Blood, Venous Updated: 10/04/24 2301 Blood Culture No growth at 120 hours Blood culture [[id number]] Collected: 09/29/242123 Lab Status: Final result Specimen: Blood, Venous Updated: 10/04/24 2301 Blood Culture No growth at 120 hours AFB culture [[id number]] Collected: 09/26/24 1702 Lab Status: Preliminary result Specimen: Abscess from Knee, Left Updated: 10/04/24 1201 Acid Fast Bacilli Culture No acid fast bacilli isolated at 1 week. Acid Fast Stain No acid fast bacilli seen Blood culture [[id number]] Collected: 09/28/24 1749 Lab Status: Final result Specimen: Blood, Venous Updated: 10/03/24 1901 Blood Culture No growth at 120 hours Blood culture [[id number]] (Abnormal) Collected: 09/27/242132 Lab Status: Final result Specimen: Blood, Venous Updated: 10/02/24 0804 Blood Culture Methicillin Resistant Staphylococcus aureus Comment: Susceptibilities previously reported. Gram Stain Aerobic Bottle: Gram positive cocci in clusters Tissue Culture, Aerobic & Anaerobic [[id number]] Collected: 09/27/241653 Lab Status: Final result Specimen: Tissue from Thigh, Left Updated: 10/01/24 1554 Narrative: The following orders were created for panel order Tissue Culture, Aerobic & Anaerobic. Procedure Abnormality Status --------- ------ Tissue Culture, Aerobic ...[[id number]] Anaerobic Culture[[id number]] Final result Please view results for these tests on the individual orders. Anaerobic Culture [[id number]] Collected: 09/27/241653 Lab Status: Final result Specimen: Tissue from Thigh, Left Updated: 10/01/24 1554 Anaerobic Culture No anaerobic organisms isolated Tissue Culture, Aerobic Only [[id number]] (Abnormal) (Susceptibility) Collected: 09/27/241653 Lab Status: Final result Specimen: Tissue from Thigh, Left Updated: 10/01/24 1318 Tissue Culture Rare Methicillin Resistant Staphylococcus aureus Gram Stain Few Neutrophils seen No microorganisms seen Susceptibility Methicillin Resistant Staphylococcus aureus VITEK 2 METHOD Ciprofloxacin Susceptible Clindamycin Resistant Gentamicin Susceptible [1] Linezolid Susceptible Oxacillin Resistant Tetracycline Susceptible [2] Trimethoprim/Sulfa Susceptible Vancomycin Susceptible [1] Gentamicin is not appropriate for monotherapy for gram-positive infections. [2] Based on tetracycline susceptibility, this organism is considered susceptible to doxycycline. Blood culture [[id number]] (Abnormal) (Susceptibility) Collected: 09/26/24 1422 Lab Status: Edited Specimen: Blood, Venous Updated: 10/01/24 0658 Blood Culture Methicillin Resistant Staphylococcus aureus Comment: detected by PCR Isolate saved. If future testing is required, contact the Microbiology Senior Systems Developer. Gram Stain Aerobic Bottle: Gram positive cocci in clusters Susceptibility Methicillin Resistant Staphylococcus aureus VITEK 2 METHOD Clindamycin Resistant Gentamicin Susceptible [1] Linezolid Susceptible Oxacillin Resistant Trimethoprim/Sulfa Susceptible Vancomycin Susceptible [1] Gentamicin is not appropriate for monotherapy for gram-positive infections. Blood culture [[id number]] (Abnormal) Collected: 09/26/24 1845 Lab Status: Final result Specimen: Blood, Venous Updated: 10/01/24 0658 Blood Culture Methicillin Resistant Staphylococcus aureus Comment: isolated. Susceptibilities previously reported. Gram Stain Aerobic Bottle: Gram positive cocci in clusters Abscess/Wound Aspirate Culture, Aerobic & Anaerobic [[id number]] (Abnormal) Collected: 09/26/24 1650 Lab Status: Final result Specimen: Abscess from Groin, Left Updated: 09/30/24 1551 Narrative: The following orders were created for panel order Abscess/Wound Aspirate Culture, Aerobic & Anaerobic. Procedure Abnormality Status --------- ------ Abscess/Wound Aspirate C...[[id number]] Abnormal Final result Anaerobic Culture[[id number]] Final result Please view results for these tests on the individual orders. Anaerobic Culture [[id number]] Collected: 09/26/24 1650 Lab Status: Final result Specimen: Abscess from Groin, Left Updated: 09/30/24 1551 Anaerobic Culture No anaerobic organisms isolated Abscess/Wound Aspirate Culture, Aerobic & Anaerobic [[id number]] (Abnormal) Collected: 09/26/24 1702 Lab Status: Final result Specimen: Abscess from Knee, Left Updated: 09/30/24 1551 Narrative: The following orders were created for panel order Abscess/Wound Aspirate Culture, Aerobic & Anaerobic. Procedure Abnormality Status --------- ------ Abscess/Wound Aspirate C...[[id number]] Abnormal Final result Anaerobic Culture[[id number]] Final result Please view results for these tests on the individual orders. Anaerobic Culture [[id number]] Collected: 09/26/24 1702 Lab Status: Final result Specimen: Abscess from Knee, Left Updated: 09/30/24 1551 Anaerobic Culture No anaerobic organisms isolated Sonicated Tissue/Implant Culture [[id number]] (Abnormal) Collected: 09/26/24 1716 Lab Status: Final result Specimen: Vascular Graft from Leg, Left Updated: 09/30/24 1349 Sonicated Tissue/Implant Culture Methicillin Resistant Staphylococcus aureus Comment: isolated from broth culture. Susceptibilities previously reported. Abscess/Wound Aspirate Culture, Aerobic Only [[id number]] (Abnormal) (Susceptibility) Collected: 09/26/24 1702 Lab Status: Final result Specimen: Abscess from Knee, Left Updated: 09/30/24 1337 Abscess/Wound Aspirate Culture Many Methicillin Resistant Staphylococcus aureus Gram Stain Many neutrophils Many Gram positive cocci Susceptibility Methicillin Resistant Staphylococcus aureus VITEK 2 METHOD Ciprofloxacin Susceptible Clindamycin Resistant Gentamicin Susceptible [1] Linezolid Susceptible Oxacillin Resistant Tetracycline Susceptible [2] Trimethoprim/Sulfa Susceptible Vancomycin Susceptible [1] Gentamicin is not appropriate for monotherapy for gram-positive infections. [2] Based on tetracycline susceptibility, this organism is considered susceptible to doxycycline. Abscess/Wound Aspirate Culture, Aerobic Only [[id number]] (Abnormal) (Susceptibility) Collected: 09/26/24 1650 Lab Status: Final result Specimen: Abscess from Groin, Left Updated: 09/30/24 1336 Abscess/Wound Aspirate Culture Many Methicillin Resistant Staphylococcus aureus Gram Stain Many neutrophils Many Gram positive cocci Susceptibility Methicillin Resistant Staphylococcus aureus VITEK 2 METHOD Ciprofloxacin Susceptible Clindamycin Resistant Gentamicin Susceptible [1] Linezolid Susceptible Oxacillin Resistant Tetracycline Susceptible [2] Trimethoprim/Sulfa Susceptible Vancomycin Susceptible [1] Gentamicin is not appropriate for monotherapy for gram-positive infections. [2] Based on tetracycline susceptibility, this organism is considered susceptible to doxycycline. New Studies: - None Assessment & Plan: Geovanna Dixon Jr. is a 49 y.o. male with a history of HTN, HLD, NSTEMI, CAD s/p CABG (12/2011), DM,obesity, PAD s/p L iliofem endart and L fem-BK pop bypass and L 2nd toe amputation who was transferred from [facility] given concern for infected left fem-BK popliteal PTFE bypass. 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 10/06/24 Doing well postoperatively. Dressings changed at bedside today, ID recs for long-term abx noted, will commence d/c planning. For bedside wound vac change today. Plan: - Continue to monitor RAY drain output - Continue to monitor BP, augmenting antihypertensive regimen as indicated -- Metoprolol succinate 25mg daily (10/01) -- Losartan 50mg daily (10/01) - OOB, AAT - Vac change today at bedside - ID consulted, appreciate recs - +MRSA from wound, ID recs Vancomycin (09/26-); dc'ed Zosyn (09/26-09/28) - Continue aspirin and statin - Tylenol, PRN oxy for pain control - DM management consulted, appreciate recs - Daily labs, replete PRN goal K 4.0; Mg 1.0 - SQH ppx - ISS - Diet today: carb control 45/45/60 level1; supplements ensure TID; Anticoagulation: SQH TID for DVT prophylaxis Antiplatelet: ASA 81mg daily Benjamin Iniguez MD 10/06/2024 Pager: [phone] * Benjamin Iniguez MD - 10/05/2024 7:42 AM EST Images from the original note were not included. Vascular Surgery Progress Note Geovanna Dixon Jr. is a 49 y.o. male with history of HTN, HLD, NSTEMI, CAD s/p CABG (12/2011), DM, obesity, PAD s/p L iliofem endart and L fem-BK pop bypass and L 2nd toe amputation who was transferred from [facility] given concern for infected left fem-BK popliteal PTFE bypass. At the OSH, he underwent CT LLE with contrast that demonstrated fluid surrounding the graft and he was initiated on vancomycinand cefepime. He was noted to have a lactate of 3.6. He stated that he noticed his left groin has some swelling and some drainage about a week ago that then extended down his leg over the course of the week. He stated that he presented to the clinic (unclear where) but was not given an antibiotic. Has continued to take aspirin as well as Xarelto for his bypass and stopped smoking 1 week ago. He presented to [facility] on 09/26 and went to the OR for an urgent washout and explant of the graft, with plans for serial return to the OR as indicated for definitive management. Prior vascular history 08/01/2024: Left iliofemoral endarterectomy and left femoral to below-knee popliteal artery bypass with 7mm ringed PTFE 07/19/2024: Left 2nd toe amputation Anticoagulation: Xarelto, bypass patency Antiplatelet: Aspirin Active Hospital Problems Diagnosis Vascular graft infection, initial encounter Resolved Hospital Problems No resolved problems to display. Active Non-Hospital Problems Diagnosis 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 (SVG to PDA closed 08/2013) PAD (peripheral artery disease) Peripheral artery disease Critical limb ischemia of left lower extremity Diabetes mellitus Obesity NSTEMI (non-ST elevated myocardial infarction) HTN (hypertension) Hyperlipidemia Depression Narcolepsy Scheduled Medications: vancomycin 1.25 g Intravenous Q8H melatonin 3 mg Oral Nightly polyethylene glycoL (MIRALAX) oral powder 17 g Oral Daily metoprolol succinate XL 25 mg Oral Daily losartan 50 mg Oral Daily magnesium oxide 400 mg Oral BID protriptyline 10 mg Oral TID insulin glargine (Lantus;Semglee) (100 unit/mL) subcutaneous injection 25 Units Subcutaneous BID insulin lispro 1-6 Units Subcutaneous Q4H JOSE insulin lispro 0-11 Units Subcutaneous TID WC acetaminophen 975 mg Oral Q6H JOSE atorvastatin 80 mg Oral QPM aspirin EC 81 mg Oral Daily methylphenidate 20 mg Oral TID pantoprazole EC 40 mg Oral Daily senna-docusate 2 tablet Oral BID venlafaxine XR 225 mg Oral Daily heparin (porcine) 5,000 Units Subcutaneous Q8H JOSE lidocaine 1 patch Transdermal Q24H Operations this hospitalization: 09/26/2024: explant of infected left femoral-below knee popliteal artery bypass graft 09/27/2024: Evacuation of abscess in left posterior thigh compartment via AK popliteal incision Irrigation of left groin and calf incision sites 09/28/2024: left great saphenous vein harvest, vein patch angioplasty L common femoral artery and BK popliteal artery, sartorius flap placement over L femoral artery, excisional debridement and washout of L groin with wound vac placement 09/29/2024: repeat exploration of L femoral artery and LLE washout, wound vac placement L calf 10/02/24 DEBRIDEMENT SKIN, SUBCU, MUSCLE, LOWER EXTREMITY (WRVU 2.7) (Left) 24 hour events/Subjective - Had debridement and washout in the OR yesterday - EKG ordered overnight d/t concerns about QT prolongation, NSR - Last Bowel Movement: 10/03/24 Objective: Temp: [36.2 ??C (97.2 ??F)-36.7 ??C (98.1 ??F)] Heart Rate: [73-88] Resp: [10-22] BP: (121-160)/(75-102) SpO2: [94 %-100 %] Heart Rate from SpO2: [73 bpm-89 bpm] BMI: Weight: 105 kg (231 lb 7.7 oz) (09/30/24 0000) BMI (Calculated): 32.36 BMI Classification: Obese Intake/Output Summary (Last 24 hours) at 10/05/2024 0742 Last data filed at 10/05/2024 0519 Gross per 24 hour Intake 1782 ml Output 3945 ml Net -2163 ml PHYSICAL EXAM: GEN: Alert and appears stated age. Cooperative. In NAD. HEENT: Normocephalic and atraumatic. CV: Regular rate. Pulm: Breathing comfortably on room air. 95% Abd: Soft, non-distended, non-tender to palpation. Skin: Color, texture, turgor normal. No rashes or lesions. Neuro: No gross sensory or motor abnormality. Extremities: L groin incision sites with drains with minimal serosanguinous drainage. Wound vacs present, holding suction well. Dressings changed at bedside, applied with ABD pads; secured with medipore tape, no LLE erythema or edema. Vascular: DP and PT signals present Labs: Recent Labs 10/04/240 10/04/24 0008 10/03/24 0027 WBC 12.73* 12.58* 15.33* HGB 9.8* 9.4* 10.4* HCT 30.6* 28.8* 31.2* PLATELET 709* 670* 693* Recent Labs 10/04/24 2350 10/04/24 0008 10/03/24 0027 NA 140 138 136 K 3.9 4.4 4.1 CL 105 105 103 CO2 20* BUN 13 19 15 CREATININE 0.55* 0.56* 0.51* PHOS 4.2 3.7 3.5 CALCIUM 9.0 8.7 8.4* Microbiology: Microbiology Results (last 7 days) Procedure Component Value - Date/Time Blood culture [[id number]] Collected: 09/29/242123 Lab Status: Final result Specimen: Blood, Venous Updated: 10/04/24 2301 Blood Culture No growth at 120 hours Blood culture [[id number]] Collected: 09/29/242123 Lab Status: Final result Specimen: Blood, Venous Updated: 10/04/24 2301 Blood Culture No growth at 120 hours AFB culture [[id number]] Collected: 09/26/24 1702 Lab Status: Preliminary result Specimen: Abscess from Knee, Left Updated: 10/04/24 1201 Acid Fast Bacilli Culture No acid fast bacilli isolated at 1 week. Acid Fast Stain No acid fast bacilli seen Blood culture [[id number]] Collected: 09/28/24 1749 Lab Status: Final result Specimen: Blood, Venous Updated: 10/03/24 1901 Blood Culture No growth at 120 hours Blood culture [[id number]] (Abnormal) Collected: 09/27/24 2133 Lab Status: Final result Specimen: Blood, Venous Updated: 10/02/24 0804 Blood Culture Methicillin Resistant Staphylococcus aureus Comment: Susceptibilities previously reported. Gram Stain Aerobic Bottle: Gram positive cocci in clusters Tissue Culture, Aerobic & Anaerobic [[id number]] Collected: 09/27/24 1654 Lab Status: Final result Specimen: Tissue from Thigh, Left Updated: 10/01/24 1554 Narrative: The following orders were created for panel order Tissue Culture, Aerobic & Anaerobic. Procedure Abnormality Status --------- ------ Tissue Culture, Aerobic ...[[id number]] Anaerobic Culture[[id number]] Final result Please view results for these tests on the individual orders. Anaerobic Culture [[id number]] Collected: 09/27/24 165 Lab Status: Final result Specimen: Tissue from Thigh, Left Updated: 10/01/24 1554 Anaerobic Culture No anaerobic organisms isolated Tissue Culture, Aerobic Only [[id number]] (Abnormal) (Susceptibility) Collected: 09/27/24 165 Lab Status: Final result Specimen: Tissue from Thigh, Left Updated: 10/01/24 1318 Tissue Culture Rare Methicillin Resistant Staphylococcus aureus Gram Stain Few Neutrophils seen No microorganisms seen Susceptibility Methicillin Resistant Staphylococcus aureus VITEK 2 METHOD Ciprofloxacin Susceptible Clindamycin Resistant Gentamicin Susceptible [1] Linezolid Susceptible Oxacillin Resistant Tetracycline Susceptible [2] Trimethoprim/Sulfa Susceptible Vancomycin Susceptible [1] Gentamicin is not appropriate for monotherapy for gram-positive infections. [2] Based on tetracycline susceptibility, this organism is considered susceptible to doxycycline. Blood culture [[id number]] (Abnormal) (Susceptibility) Collected: 09/26/24 1422 Lab Status: Final result Specimen: Blood, Venous Updated: 10/01/24 0658 Blood Culture Methicillin Resistant Staphylococcus aureus Comment: detected by PCR Isolate saved. If future testing is required, contact the Microbiology Senior Systems Developer. Gram Stain Aerobic Bottle: Gram positive cocci in clusters Susceptibility Methicillin Resistant Staphylococcus aureus VITEK 2 METHOD Clindamycin Resistant Gentamicin Susceptible [1] Linezolid Susceptible Oxacillin Resistant Trimethoprim/Sulfa Susceptible Vancomycin Susceptible [1] Gentamicin is not appropriate for monotherapy for gram-positive infections. Blood culture [[id number]] (Abnormal) Collected: 09/26/24 1845 Lab Status: Final result Specimen: Blood, Venous Updated: 10/01/24 0658 Blood Culture Methicillin Resistant Staphylococcus aureus Comment: isolated. Susceptibilities previously reported. Gram Stain Aerobic Bottle: Gram positive cocci in clusters Abscess/Wound Aspirate Culture, Aerobic & Anaerobic [[id number]] (Abnormal) Collected: 09/26/24 1650 Lab Status: Final result Specimen: Abscess from Groin, Left Updated: 09/30/24 1551 Narrative: The following orders were created for panel order Abscess/Wound Aspirate Culture, Aerobic & Anaerobic. Procedure Abnormality Status --------- ------ Abscess/Wound Aspirate C...[[id number]] Abnormal Final result Anaerobic Culture[[id number]] Final result Please view results for these tests on the individual orders. Anaerobic Culture [[id number]] Collected: 09/26/24 1650 Lab Status: Final result Specimen: Abscess from Groin, Left Updated: 09/30/24 1551 Anaerobic Culture No anaerobic organisms isolated Abscess/Wound Aspirate Culture, Aerobic & Anaerobic [[id number]] (Abnormal) Collected: 09/26/24 1702 Lab Status: Final result Specimen: Abscess from Knee, Left Updated: 09/30/24 1551 Narrative: The following orders were created for panel order Abscess/Wound Aspirate Culture, Aerobic & Anaerobic. Procedure Abnormality Status --------- ------ Abscess/Wound Aspirate C...[[id number]] Abnormal Final result Anaerobic Culture[[id number]] Final result Please view results for these tests on the individual orders. Anaerobic Culture [[id number]] Collected: 09/26/24 1702 Lab Status: Final result Specimen: Abscess from Knee, Left Updated: 09/30/24 1551 Anaerobic Culture No anaerobic organisms isolated Sonicated Tissue/Implant Culture [[id number]] (Abnormal) Collected: 09/26/24 1716 Lab Status: Final result Specimen: Vascular Graft from Leg, Left Updated: 09/30/24 1349 Sonicated Tissue/Implant Culture Methicillin Resistant Staphylococcus aureus Comment: isolated from broth culture. Susceptibilities previously reported. Abscess/Wound Aspirate Culture, Aerobic Only [[id number]] (Abnormal) (Susceptibility) Collected: 09/26/24 1702 Lab Status: Final result Specimen: Abscess from Knee, Left Updated: 09/30/24 1337 Abscess/Wound Aspirate Culture Many Methicillin Resistant Staphylococcus aureus Gram Stain Many neutrophils Many Gram positive cocci Susceptibility Methicillin Resistant Staphylococcus aureus VITEK 2 METHOD Ciprofloxacin Susceptible Clindamycin Resistant Gentamicin Susceptible [1] Linezolid Susceptible Oxacillin Resistant Tetracycline Susceptible [2] Trimethoprim/Sulfa Susceptible Vancomycin Susceptible [1] Gentamicin is not appropriate for monotherapy for gram-positive infections. [2] Based on tetracycline susceptibility, this organism is considered susceptible to doxycycline. Abscess/Wound Aspirate Culture, Aerobic Only [[id number]] (Abnormal) (Susceptibility) Collected: 09/26/24 165 Lab Status: Final result Specimen: Abscess from Groin, Left Updated: 09/30/24 1336 Abscess/Wound Aspirate Culture Many Methicillin Resistant Staphylococcus aureus Gram Stain Many neutrophils Many Gram positive cocci Susceptibility Methicillin Resistant Staphylococcus aureus VITEK 2 METHOD Ciprofloxacin Susceptible Clindamycin Resistant Gentamicin Susceptible [1] Linezolid Susceptible Oxacillin Resistant Tetracycline Susceptible [2] Trimethoprim/Sulfa Susceptible Vancomycin Susceptible [1] Gentamicin is not appropriate for monotherapy for gram-positive infections. [2] Based on tetracycline susceptibility, this organism is considered susceptible to doxycycline. AFB culture [[id number]] Collected: 09/27/241653 Lab Status: Preliminary result Specimen: Tissue from Thigh, Left Updated: 09/29/24 1201 Acid Fast Bacilli Culture No acid fast bacilli isolated to date. Acid Fast Stain No acid fast bacilli seen Fungus culture [[id number]] Collected: 09/27/241653 Lab Status: Preliminary result Specimen: Tissue from Thigh, Left Updated: 09/28/24 0748 Fungus Culture No fungus isolated to date New Studies: - None Assessment & Plan: Geovanna Dixon Jr. is a 49 y.o. male with a history of HTN, HLD, NSTEMI, CAD s/p CABG (12/2011), DM,obesity, PAD s/p L iliofem endart and L fem-BK pop bypass and L 2nd toe amputation who was transferred from [facility] given concern for infected left fem-BK popliteal PTFE bypass. 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 10/05/24 Doing well postoperatively. Dressings changed at bedside today, ID recs for long-term abx noted, will engage with OPAT team and begin d/c coordination once tentative d/c date is known. Plan: - Continue to monitor RAY drain output - Continue to monitor BP, augmenting antihypertensive regimen as indicated -- Metoprolol succinate 25mg daily (10/01) -- Losartan 50mg daily (10/01) - OOB, AAT - Vac change tomorrow at bedside - ID consulted, appreciate recs - +MRSA from wound, ID recs Vancomycin (09/26-); dc'ed Zosyn (09/26-09/28) - Continue aspirin and statin - Tylenol, PRN oxy for pain control - DM management consulted, appreciate recs - Daily labs, replete PRN goal K 4.0; Mg 1.0 - SQH ppx - ISS - Diet today: carb control 45/45/60 level1; supplements ensure TID; Anticoagulation: SQH TID for DVT prophylaxis Antiplatelet: ASA 81mg daily Benjamin Iniguez MD 10/05/2024 Pager: [phone] Associated attestation - Hayley Torres MD - 10/06/2024 9:25 AM EST I have seen and examined the patient, providing white components as outlined below. I have reviewed the resident???s above note; my evaluation of the patient is below: Recovering well Wounds all clean and granulating in OR Attempting to drain deep cavities for as long as possible to prevent recurrent abscess formation Will plan bedside vac Wednesday. Outpt IV antibiotic planning Tentative plan for DC early next week. Hayley Torres MD * Padma Ramirez MD - 10/04/2024 8:45 PM EST Surgery Post Op Check Geovanna Dixon JrFlorencio is a 49 y.o. male status post LLE debridement S: No nausea/vomiting, chest pain, SOB, pain well controlled, offers no complaints O: Temp: [36.2 ??C (97.2 ??F)-36.7 ??C (98.1 ??F)] Heart Rate: [73-88] Resp: [10-22] BP: (121-143)/(75-92) SpO2: [95 %-100 %] Heart Rate from SpO2: [73 bpm-89 bpm] I/O last 3 completed shifts: In: 3809 [P.O.:1799; I.V.:1260; IV Piggyback:750] Out: 5350 [Urine:4575; Drains:5; Other:65; Blood:5] I/O this shift: In: 12 [I.V.:12] Out: 13 [Drains:11; Other:2] UOP since OR: patient urinating without problems Physical Exam General: NAD, resting comfortably HEENT: PERRL, anicteric sclerae CVS: Regular rate Pulm: Breathing comfortably on RA Abd: soft, non tender, non distended Ext: RLE: No edema. Skin warm and pink. No tissue loss. Brisk capillary refill LLE: No edema. Skin warm and pink. Brisk capillary refill. 2 RAY drains (1 lateral RAY drain for sartorious flap; 1 medial RAY drain that goes into the groin) holding suction with minimal serosanguinousoutput; 3 wound vacs Neuro: nonfocal, moving all extremities. Sensation intact in extremities bilaterally symmetric. Motor function intact in extremities, bilaterally symmetric. Vascular Exam: L DP Present on doppler PT Present on doppler AP: Geovanna Dixon Jr. is a 49 y.o. male status post LLE debridement, currently in stable condition and recovering well. - Pain well controlled - Hemodynamically stable - Diet: Resume regular diet - UOP adequate - Anticoagulation: subq heparin - Antiplatelet: ASA 81 mg - Wound vac not suctioning with 75 mmHg setting so increased to 100 mmHg and it began working properly Padma Ramirez MD Vascular Surgery 10/04/24 * Lynne Leavitt MD - 10/04/2024 7:03 PM EST INFECTIOUS DISEASE FOLLOW-UP NOTE Active ID Issue(s): Vascular graft infection, fully explanted 09/28/2024 MRSA bacteremia Current Antimicrobial(s): Vancomycin I have reviewed available microbiology, laboratory, imaging/radiology/diagnostics. Laboratory: Recent Labs 10/02/24 0041 10/01/24 0202 09/29/24 2352 WBC 10.93* 10.15* 9.54* HGB 9.6* 9.1* 8.7* HCT 28.6* 26.9* 25.8* PLATELET 546* 444* 411* Recent Labs 10/02/24 0041 10/01/24 0202 09/30/24 0627 09/29/24 2352 NA 138 138 -- 138 K 3.9 3.9 3.9 3.4* CL 105 105 -- 103 CO2 24 -- 24 BUN 11 10 -- 9* CREATININE 0.49* 0.47* -- 0.48* Recent Labs 09/26/24 1439 AST 16 ALT 14 ALKPHOS 160* BILITOT 0.4 BILIDIR 0.2 Microbiology: 09/26 BC- MRSA 09/27 BC- MRSA 09/28 BC- NGTD 09/29 BC- NGTD 09/27 Tissue culture -MRSA 09/26- Sonicated tissue, vascular graft-MRSA 09/26 knee aspirate- MRSA Antimicrobials: Vancomycin- Imaging/diagnostics: CT lower ohixbzxga74/20 IMPRESSION: 1. Interval explant of LEFT femoral bypass graft with 2 open wounds and partial drainage of perigraft abscess. 2. A residual deep-seated abscess collection extends from proximal and thigh to proximal calf. This abscess contains air and an irregular enhancing rim. 3. No CT findings of osteomyelitis or septic arthritis. TTE 09/28 Interpretation Summary -Limited study performed for bacteremia [...] or tricuspid valve. No significant valvular regurgitation. 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 He is currently receiving vancomy ezequiel therapy. Repeated blood cultures have shown no growth. He continues to follow up with the vascular team and undergoes wound washes and VAC changes. We would recommend 6 weeks of treatment from the last positive blood culture 09/29 RECOMMENDATIONS: - Recommend to continue with vancomycin pharmacy dose for 6 week from the 11/29 EOT 11/10/2024 - Please call us back once pt will be ready for discharge for OPAT plan Patient discussed with ID attending Dr. Hernandez Thank you for the consult. ID consult service will sign off. Please do not hesitate to page with any questions or concerns. Please page ID John whitehead (pager [phone]) with questions or concerns. Lynne Leavitt MD Fellow, Infectious Disease Pager: [phone] Epic Chat 10/02/2024 This note was created using Potential voice recognition software. Associated attestation - Amaya Hernandez MD - 10/05/2024 12:41 AM EST Images from the original note were not included. ID Attending I reviewed the fellow's history, and I agree with the details as written. The assessment and plan were formulated in discussion with me, and I agree with them as documented. DATA REVIEW Category 1: I have reviewed Labs: Lab Results Component Value Date WBC 12.73 (H) 10/04/2024 WBC 12.8 (H) 06/02/2024 RBC 3.45 (L) 10/04/2024 RBC 4.56 (L) 06/02/2024 HGB 9.8 (L) 10/04/2024 HGB 13.7 06/02/2024 HCT 30.6 (L) 10/04/2024 HCT 39.0 (L) 06/02/2024 MCV 88.7 10/04/2024 MCV 85.5 06/02/2024 MCH 28.4 10/04/2024 MCH 30.0 06/02/2024 MCHC 32.0 10/04/2024 MCHC 35.1 06/02/2024 PLATELET 709 (H) 10/04/2024 PLATELET 283 06/02/2024 RDWCV 14.3 (H) 10/04/2024 RDWCV 11.6 06/02/2024 Micro: Microbiology Results (last 7 days) Procedure Component Value - Date/Time Blood culture [[id number]] Collected: 09/29/242123 Lab Status: Final result Specimen: Blood, Venous Updated: 11/27/24 2301 Blood Culture No growth at 120 hours Blood culture [[id number]] Collected: 09/29/242123 Lab Status: Final result Specimen: Blood, Venous Updated: 10/04/24 2301 Blood Culture No growth at 120 hours AFB culture [[id number]] Collected: 09/26/24 1702 Lab Status: Preliminary result Specimen: Abscess from Knee, Left Updated: 10/04/24 1201 Acid Fast Bacilli Culture No acid fast bacilli isolated at 1 week. Acid Fast Stain No acid fast bacilli seen Blood culture [[id number]] Collected: 09/28/24 1749 Lab Status: Final result Specimen: Blood, Venous Updated: 10/03/24 1901 Blood Culture No growth at 120 hours Blood culture [[id number]] (Abnormal) Collected: 09/27/242132 Lab Status: Final result Specimen: Blood, Venous Updated: 10/02/24 0804 Blood Culture Methicillin Resistant Staphylococcus aureus Comment: Susceptibilities previously reported. Gram Stain Aerobic Bottle: Gram positive cocci in clusters Tissue Culture, Aerobic & Anaerobic [[id number]] Collected: 09/27/241653 Lab Status: Final result Specimen: Tissue from Thigh, Left Updated: 10/01/24 1554 Narrative: The following orders were created for panel order Tissue Culture, Aerobic & Anaerobic. Procedure Abnormality Status --------- ------ Tissue Culture, Aerobic ...[[id number]] Anaerobic Culture[[id number]] Final result Please view results for these tests on the individual orders. Anaerobic Culture [[id number]] Collected: 09/27/241653 Lab Status: Final result Specimen: Tissue from Thigh, Left Updated: 10/01/24 1554 Anaerobic Culture No anaerobic organisms isolated Tissue Culture, Aerobic Only [[id number]] (Abnormal) (Susceptibility) Collected: 09/27/241653 Lab Status: Final result Specimen: Tissue from Thigh, Left Updated: 10/01/24 1318 Tissue Culture Rare Methicillin Resistant Staphylococcus aureus Gram Stain Few Neutrophils seen No microorganisms seen Susceptibility Methicillin Resistant Staphylococcus aureus VITEK 2 METHOD Ciprofloxacin <=0.5 ug/ml Susceptible Clindamycin >=8.0 ug/ml Resistant Gentamicin <=0.5 ug/ml Susceptible [1] Linezolid 2.0 ug/ml Susceptible Oxacillin >=4.0 ug/ml Resistant Tetracycline <=1.0 ug/ml Susceptible [2] Trimethoprim/Sulfa <=10.0 ug/ml Susceptible Vancomycin 1.0 ug/ml Susceptible [1] Gentamicin is not appropriate for monotherapy for gram-positive infections. [2] Based on tetracycline susceptibility, this organism is considered susceptible to doxycycline. Blood culture [[id number]] (Abnormal) (Susceptibility) Collected: 09/26/24 1422 Lab Status: Final result Specimen: Blood, Venous Updated: 10/01/24 0658 Blood Culture Methicillin Resistant Staphylococcus aureus Comment: detected by PCR Isolate saved. If future testing is required, contact the Microbiology Senior Systems Developer. Gram Stain Aerobic Bottle: Gram positive cocci in clusters Susceptibility Methicillin Resistant Staphylococcus aureus VITEK 2 METHOD Clindamycin >=8.0 ug/ml Resistant Gentamicin <=0.5 ug/ml Susceptible [1] Linezolid 2.0 ug/ml Susceptible Oxacillin >=4.0 ug/ml Resistant Trimethoprim/Sulfa <=10.0 ug/ml Susceptible Vancomycin 1.0 ug/ml Susceptible [1] Gentamicin is not appropriate for monotherapy for gram-positive infections. Blood culture [[id number]] (Abnormal) Collected: 09/26/24 1845 Lab Status: Final result Specimen: Blood, Venous Updated: 10/01/24 0658 Blood Culture Methicillin Resistant Staphylococcus aureus Comment: isolated. Susceptibilities previously reported. Gram Stain Aerobic Bottle: Gram positive cocci in clusters Abscess/Wound Aspirate Culture, Aerobic & Anaerobic [[id number]] (Abnormal) Collected: 09/26/24 1650 Lab Status: Final result Specimen: Abscess from Groin, Left Updated: 09/30/24 1551 Narrative: The following orders were created for panel order Abscess/Wound Aspirate Culture, Aerobic & Anaerobic. Procedure Abnormality Status --------- ------ Abscess/Wound Aspirate C...[[id number]] Abnormal Final result Anaerobic Culture[[id number]] Final result Please view results for these tests on the individual orders. Anaerobic Culture [[id number]] Collected: 09/26/24 1650 Lab Status: Final result Specimen: Abscess from Groin, Left Updated: 09/30/24 1551 Anaerobic Culture No anaerobic organisms isolated Abscess/Wound Aspirate Culture, Aerobic & Anaerobic [[id number]] (Abnormal) Collected: 09/26/24 1702 Lab Status: Final result Specimen: Abscess from Knee, Left Updated: 09/30/24 1551 Narrative: The following orders were created for panel order Abscess/Wound Aspirate Culture, Aerobic & Anaerobic. Procedure Abnormality Status --------- ------ Abscess/Wound Aspirate C...[[id number]] Abnormal Final result Anaerobic Culture[[id number]] Final result Please view results for these tests on the individual orders. Anaerobic Culture [[id number]] Collected: 09/26/24 170 Lab Status: Final result Specimen: Abscess from Knee, Left Updated: 09/30/24 1551 Anaerobic Culture No anaerobic organisms isolated Sonicated Tissue/Implant Culture [[id number]] (Abnormal) Collected: 09/26/24 1716 Lab Status: Final result Specimen: Vascular Graft from Leg, Left Updated: 09/30/24 1349 Sonicated Tissue/Implant Culture Methicillin Resistant Staphylococcus aureus Comment: isolated from broth culture. Susceptibilities previously reported. Abscess/Wound Aspirate Culture, Aerobic Only [[id number]] (Abnormal) (Susceptibility) Collected: 09/26/24 170 Lab Status: Final result Specimen: Abscess from Knee, Left Updated: 09/30/24 1337 Abscess/Wound Aspirate Culture Many Methicillin Resistant Staphylococcus aureus Gram Stain Many neutrophils Many Gram positive cocci Susceptibility Methicillin Resistant Staphylococcus aureus VITEK 2 METHOD Ciprofloxacin <=0.5 ug/ml Susceptible Clindamycin >=8.0 ug/ml Resistant Gentamicin <=0.5 ug/ml Susceptible [1] Linezolid 2.0 ug/ml Susceptible Oxacillin >=4.0 ug/ml Resistant Tetracycline <=1.0 ug/ml Susceptible [2] Trimethoprim/Sulfa <=10.0 ug/ml Susceptible Vancomycin 1.0 ug/ml Susceptible [1] Gentamicin is not appropriate for monotherapy for gram-positive infections. [2] Based on tetracycline susceptibility, this organism is considered susceptible to doxycycline. Abscess/Wound Aspirate Culture, Aerobic Only [[id number]] (Abnormal) (Susceptibility) Collected: 09/26/24 1650 Lab Status: Final result Specimen: Abscess from Groin, Left Updated: 09/30/24 1336 Abscess/Wound Aspirate Culture Many Methicillin Resistant Staphylococcus aureus Gram Stain Many neutrophils Many Gram positive cocci Susceptibility Methicillin Resistant Staphylococcus aureus VITEK 2 METHOD Ciprofloxacin <=0.5 ug/ml Susceptible Clindamycin >=8.0 ug/ml Resistant Gentamicin <=0.5 ug/ml Susceptible [1] Linezolid 2.0 ug/ml Susceptible Oxacillin >=4.0 ug/ml Resistant Tetracycline <=1.0 ug/ml Susceptible [2] Trimethoprim/Sulfa <=10.0 ug/ml Susceptible Vancomycin 1.0 ug/ml Susceptible [1] Gentamicin is not appropriate for monotherapy for gram-positive infections. [2] Based on tetracycline susceptibility, this organism is considered susceptible to doxycycline. AFB culture [[id number]] Collected: 09/27/241653 Lab Status: Preliminary result Specimen: Tissue from Thigh, Left Updated: 09/29/24 1201 Acid Fast Bacilli Culture No acid fast bacilli isolated to date. Acid Fast Stain No acid fast bacilli seen Fungus culture [[id number]] Collected: 09/27/241653 Lab Status: Preliminary result Specimen: Tissue from Thigh, Left Updated: 09/28/24 0748 Fungus Culture No fungus isolated to date EKG/echo: reviewed Imaging: [email or web address] External records in - Epic: reviewed Category 3: The ID consult team discussed the management of this patient with and relayed our recommendations to the primary team. HIGH RISK PROBLEM: Acute or chronic illness or injury that poses a threat to life or bodily function (MRSA vascular graft infection s/p explant) HIGH RISK MANAGEMENT OPTION: Drug therapy requiring intensive monitoring for toxicity (Vancomycin IV - monitoring for drug toxicity, monitoring weekly CBC with differential and CMP) Additional comments: WE will ask micro lab to check the MRSA isolate for daptomycin susceptibility,anticipating that when he is ready for OPAT we will need a more convenient regimen than the TID vancomycin he is now getting. For now, please continue IV vancomycin with therapeutic drug monitoring. Thank you for consulting infectious diseases. Amaya Hernandez MD, [facility] Infectious Diseases Staff Physician * Vibha Guerrero RN - 10/04/2024 4:37 PM EST 1623: Pt arrived from OR via bed. Arouses to voice on arrival, simple mask in place, VSS. RAY drain x 2 and wound vac intact. 1653: Pt awake and alert. VS remain stable. Given juice for BG 70. Tolerating PO intake. 1699: Report called to DAVID Gaines. * Fawn CunninghamRESHMA - 10/04/2024 10:22 AM EST Follow Up Diabetes Consult Patient Interview Blood glucose values and insulin use reviewed. A1C improved from 12.6 to 9.7%. glargine 50 units daily at home. NPO for OR today. Dexamethasone in the OR the other day leading to hyperglycemia. If hereceives dexamethasone in OR we recommend keeping glargine insulin orders unchanged though a resistant correction should be put in place for 24 hours to manage the insulin resistance caused by the steroid. If no Dex glargine should be reduced to 20 units BID based on trends. Objective Temp: [36.4 ??C (97.5 ??F)-36.7 ??C (98 ??F)] Heart Rate: [78-95] Resp: [11-19] BP: (105-162)/(77-99) SpO2: [94 %-97 %] Heart Rate from SpO2: [80 bpm-98 bpm] Current Regimen from previous note Lantus:25 units BID, ADJUSTED Lispro 1:5 insulin to carbohydrate ratio - please adjust Lispro for correction q 4 hours based on a correction factor of 20 Diet CC Monitoring: Q4 Recent Glucose Levels Recent Labs 10/04/24 0751 10/04/24 0353 10/04/24 0001 10/03/24 1956 10/03/24 1729 10/03/24 1254 10/03/24 0759 10/03/24 0532 10/03/24 0416 10/03/24 0202 10/03/24 0013 10/02/242016 POCGLU 105 90 132 123 182 128 115 119 152 225* 255* 177 ASSESSMENT Geovanna Viet Dixon Jr. is a 49 y.o. male with PMH of CAD c/b NSTEMI in 2011 now s/p 2v CABG and PCI x2, HFrEF (LVEF 47% in May 2024), HTN, HLD, insulin dependent diabetes, narcolepsy, substance use (cocaine), and PAD c/b critical limb ischemia of his left-lower extremity now s/p LEFT femoral to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 OR PRO REVISION FEMORAL ANAST BPG GROIN OPEN W/NONAUTOG PATCH GRAFT Left 09/28/2024 REV. FEM. ANASTOMOSIS OF SYN. BYPASS GRAFT USING NONAUTOGENOUS PATCH ANGIOPLASTY-JENNIFER (WRVU 23.15) performed by Hayley Torres MD at [facility] MAIN OR PRO UNLISTED PROCEDURE VASCULAR SURGERY Left 09/28/2024 HARVEST SAPHENOUS VEIN (WRVU 13.24) performed by Hayley Torres MD at [facility] MAIN OR VS ARTERIOGRAM LOWER EXTREMITY VASCULAR SURGERY 07/20/2024 VS Arteriogram Lower Extremity Vascular Surgery 07/20/2024 Anabel Finney MD [facility] INTERVENTIONL RAD Active Non-Hospital Problems Diagnosis 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 (SVG to PDA closed 08/2013) PAD (peripheral artery disease) Peripheral artery disease Critical limb ischemia of left lower extremity Diabetes mellitus Obesity NSTEMI (non-ST elevated myocardial infarction) HTN (hypertension) Hyperlipidemia Depression Narcolepsy Social History: . Lives with sister and brother in law. One story home. One ALEJANDRA without a railing Baseline Mobility: Pt has been using a FWW and L forefoot offloading shoe but not strictly, since toe amputation in July. Pt was unclear if he still needed to use the off loading shoe or not. Pt does help out withcooking and cleaning. His sister had a recent ankle/foot surgery. He drives. He is disabled and does not work. Equipment at home: FWW, cane, crutches, L forefoot offloading shoe. Fall history: none reported Precautions/Special Considerations: LLE with 3 JPs; wound vac L ant hip incision; Bleeding precautions; leukocytosis 15.33; Anemia with hgb 10.3, 10/03; PIV. Vascular team messaged 10/03/24 and pt does not need to wear off loading shoe or heel wt bear on LLE (received this information after the rehab session). Activity Orders: up in chair, bedrest orders removed 10/03. Diet: Carb control Mobility and Positioning Recommendations: Pt. to utilize FWW and 1 assist for transfers with nursing. Please encourage up to chair for meal times as able. Can be progressed with ambulation, using FWW, shoes on feet preferred (does not need to wear off loading shoe on LLE, per Vascular team 10/03/24), as cleared by the surgical team. Subjective: ???I am a little dizzy but I have been in bed for at least a weak.?? Objective: Pt seen for evaluation today with PT and OT Pt initially supine in bed. Pain: Pt had no c/o pain.. Vital Signs: HR 88-90s BP sitting EOB 117/86 pre gt and sitting after OOB, 131/78 SPO2 on RA > 97% Mental Status: alert, oriented to person, place, and time Vision: wfls Skin: L ant hip prevena vac, 3 jps LLE, CDI dressings over L medial calf and thigh incisions (secured with x span). L 2nd toe amp, healed skin. Multiple tatoos. Musculoskeletal: ROM: BUE and BLE ROM grossly wfls. L ankle DF ~0-5 degrees (tends to rock forward in PF with off loading shoe). Pt able to use UE and place LEs in alternating figure four position, sitting EOB, to don shoes. Strength: BUE and RLE strength wfls. L DF 5/5. L quad 5/5. At least 3/5 L hip flex. Sensation: Denies sensory deficits. Reports sensation of B feet equal. Bed Mobility: Supine to Sit: HOB ~ 20 degrees, used momentum to sit EOB Sit to Supine: NE Transfers: Sit to Stand: cga of 2 with FWW, L forefoot offloading shoe, R sneaker Stand to Sit: Same as above Gait: Distance: ~50' Device used: FWW, L off loading shoe, R sneaker Level of assist: cga and support of wound vac Gait mechanics: Step to gait pattern, short step lengths, increased time in double limb stance, tends to PF L foot when wearing L forefoot offloading shoe. Stairs: NE Balance: Sitting Static: wfls Sitting Dynamic: wfls Standing Static: cga with FWW, L off loading shoe, R sneaker Standing Dynamic / Gait: Per above Education: patient has been educated on Bed mobility, Transfers, Assistive device/technique, Positioning, Safety , Equipment use, Gait , Role of therapy, Balance, and Discharge planning and verbalizes and needs reinforcement. understanding. Patient status, treatment, and mobility recommendations discussed with nursing. Pt left sitting up in the recliner. X span placed on LLE dressing to hold in place. Assessment: Geovanna Viet Dixon Jr. was seen today for physical therapy and OT evaluation. Pt is HD 8, s/p multiple LLE surgical procedures, as outline above. Pt is below his prior level of function and will benefit from ongoing PT, given the following: acute on chronic medical condition; altered skin integrity; anemia and leukocytosis; risk to bleed; decreased DF ROM; and resulting gait, transfers, bed mobility, balance and endurance limitations. Vascular team was messaged after therapy session and it was clarified that pt no longer needs to wear LLE off loading shoe and that gait should not be advanced until cleared by vascular. PT to f/u 10/06, as post op orders are updated. He should do well with expected dc to home with his family. Vitals were stable despite mild c/o dizziness with uprightactivity. Pt's pain was well controlled. Pt may need a regular post op shoe for LLE as he should not walk barefooted, for some protection to his L foot. . Inpatient Physical Therapy Plan: 2-4 times/wk for balance training, bed mobility training, gait training, patient/family education, range of motion, stair training, strengthening, and transfer training Discharge Recommendations: Based on current findings- home with supervision (and support from family, prn) Consult Recommendations: No other consults recommended at this time. Equipment needs: None Goals: To be achieved by 10/15/24: Pt has adequate DF LLE for heel to toe gait Pt. to perform bed mobility with modified independence. Pt. to perform sit<>stand transfers with modified independence using LRAD . Pt. to ambulate >100 feet with modified independence using a shoes for protection and LRAD . Pt. to ambulate up/down 1 step/stairs using LRAD with supervision. Pt will tolerate progression towards upright with stable vital signs. Patient/family understand and agree with plan as stated above. PT Evaluation Code Rationale: Diagnosis & Pertinent [...] outlined in thisevaluation. Time IN / OUT: 9936-0715 Total Time: 28 minutes; Low EV and TEF JESSICA RENAE PT Pager: [phone] Physical Therapy Inpatient Rehabilitation Department * Rose Wright, MANAGEMENT LEAD - 10/03/2024 7:53 AM EST Images from the original note were not included. Vascular Surgery Progress Note Geovanna Dixon Jr. is a 49 y.o. male with history of HTN, HLD, NSTEMI, CAD s/p CABG (12/2011), DM, obesity, PAD s/p L iliofem endart and L fem-BK pop bypass and L 2nd toe amputation who was transferred from [facility] given concern for infected left fem-BK popliteal PTFE bypass. At the OSH, he underwent CT LLE with contrast that demonstrated fluid surrounding the graft and he was initiated on vancomycinand cefepime. He was noted to have a lactate of 3.6. He stated that he noticed his left groin has some swelling and some drainage about a week ago that then extended down his leg over the course of the week. He stated that he presented to the clinic (unclear where) but was not given an antibiotic. Has continued to take aspirin as well as Xarelto for his bypass and stopped smoking 1 week ago. He presented to [facility] on 09/26 and went to the OR for an urgent washout and explant of the graft, with plans for serial return to the OR as indicated for definitive management. Prior vascular history 08/01/2024: Left iliofemoral endarterectomy and left femoral to below-knee popliteal artery bypass with 7mm ringed PTFE 07/19/2024: Left 2nd toe amputation Anticoagulation: Xarelto, bypass patency Antiplatelet: Aspirin Active Hospital Problems Diagnosis Vascular graft infection, initial encounter Resolved Hospital Problems No resolved problems to display. Active Non-Hospital Problems Diagnosis 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 (SVG to PDA closed 08/2013) PAD (peripheral artery disease) Peripheral artery disease Critical limb ischemia of left lower extremity Diabetes mellitus Obesity NSTEMI (non-ST elevated myocardial infarction) HTN (hypertension) Hyperlipidemia Depression Narcolepsy Scheduled Medications: melatonin 3 mg Oral Nightly polyethylene glycoL (MIRALAX) oral powder 17 g Oral Daily metoprolol succinate XL 25 mg Oral Daily losartan 50 mg Oral Daily magnesium oxide 400 mg Oral BID protriptyline 10 mg Oral TID insulin glargine (Lantus;Semglee) (100 unit/mL) subcutaneous injection 25 Units Subcutaneous BID vancomycin 1.5 g Intravenous Q8H insulin lispro 1-6 Units Subcutaneous Q4H JOSE insulin lispro 0-11 Units Subcutaneous TID WC acetaminophen 975 mg Oral Q6H JOSE atorvastatin 80 mg Oral QPM aspirin EC 81 mg Oral Daily methylphenidate 20 mg Oral TID pantoprazole EC 40 mg Oral Daily senna-docusate 2 tablet Oral BID venlafaxine XR 225 mg Oral Daily heparin (porcine) 5,000 Units Subcutaneous Q8H JOSE lidocaine 1 patch Transdermal Q24H Operations this hospitalization: 09/26/2024: explant of infected left femoral-below knee popliteal artery bypass graft 09/27/2024: Evacuation of abscess in left posterior thigh compartment via AK popliteal incision Irrigation of left groin and calf incision sites 09/28/2024: left great saphenous vein harvest, vein patch angioplasty L common femoral artery and BK popliteal artery, sartorius flap placement over L femoral artery, excisional debridement and washout of L groin with wound vac placement 09/29/2024: repeat exploration of L femoral artery and LLE washout, wound vac placement L calf 10/02/24 DEBRIDEMENT SKIN, SUBCU, MUSCLE, LOWER EXTREMITY (WRVU 2.7) (Left) 24 hour events/Subjective - wound vac not holding suction overnight - NPO tonight for OR tomorrow - WBC 15.3 (10.9) potentially reactive post surgery - bedrest today - hgb 10.4 (9.6) - lower RAY drain not holding suction - Last Bowel Movement: (CUTTING SUPERVISOR) Objective: Temp: [36.4 ??C (97.5 ??F)-37.3 ??C (99.1 ??F)] Heart Rate: [79-96] Resp: [11-] BP: (110-161)/(70-96) SpO2: [92 %-98 %] Heart Rate from SpO2: [78 bpm-96 bpm] BMI: Weight: 105 kg (231 lb 7.7 oz) (09/30/24 0000) BMI (Calculated): 32.36 BMI Classification: Obese Intake/Output Summary (Last 24 hours) at 10/03/2024 0754 Last data filed at 10/03/2024 0747 Gross per 24 hour Intake 3485.15 ml Output 4006 ml Net -520.85 ml PHYSICAL EXAM: GEN: Alert and appears stated age. Cooperative. In NAD. HEENT: Normocephalic and atraumatic. CV: Regular rate. Pulm: Breathing comfortably on room air. 95% Abd: Soft, non-distended, non-tender to palpation. Skin: Color, texture, turgor normal. No rashes or lesions. Neuro: No gross sensory or motor abnormality. Extremities: L groin incision site with 1 abd pad and 4x4s: small serosanguinous drainage, more serous looking; no active bleeding, dressing replaced at bedside. Two open incisions to LLE, dressing WTD applied with ABD pads; secured with medipore tape, no erythema or edema. Vascular: 10/02 LLE DP and PT signals present Labs: Recent Labs 10/03/24 0027 10/02/24 0041 10/01/24 0202 WBC 15.33* 10.93* 10.15* HGB 10.4* 9.6* 9.1* HCT 31.2* 28.6* 26.9* PLATELET 693* 546* 444* Recent Labs 10/03/24 0027 10/02/24 0041 10/01/24 0202 NA 136 138 138 K 4.1 3.9 3.9 CL 103 105 105 CO2 20* 24 BUN 15 11 10 CREATININE 0.51* 0.49* 0.47* PHOS 3.5 4.1 3.9 CALCIUM 8.4* 8.2* 8.1* Microbiology: Microbiology Results (last 7 days) Procedure Component Value - Date/Time Blood culture [[id number]] Collected: 09/29/242123 Lab Status: Preliminary result Specimen: Blood, Venous Updated: 10/02/24 2300 Blood Culture No growth at 72 hours Blood culture [[id number]] Collected: 09/29/242123 Lab Status: Preliminary result Specimen: Blood, Venous Updated: 10/02/24 2300 Blood Culture No growth at 72 hours Blood culture [[id number]] Collected: 09/28/24 1749 Lab Status: Preliminary result Specimen: Blood, Venous Updated: 10/02/24 1901 Blood Culture No growth at 96 hours Blood culture [[id number]] (Abnormal) Collected: 09/27/242132 Lab Status: Final result Specimen: Blood, Venous Updated: 10/02/24 0804 Blood Culture Methicillin Resistant Staphylococcus aureus Comment: Susceptibilities previously reported. Gram Stain Aerobic Bottle: Gram positive cocci in clusters Tissue Culture, Aerobic & Anaerobic [[id number]] Collected: 09/27/241653 Lab Status: Final result Specimen: Tissue from Thigh, Left Updated: 10/01/24 1554 Narrative: The following orders were created for panel order Tissue Culture, Aerobic & Anaerobic. Procedure Abnormality Status --------- ------ Tissue Culture, Aerobic ...[[id number]] Anaerobic Culture[[id number]] Final result Please view results for these tests on the individual orders. Anaerobic Culture [[id number]] Collected: 09/27/241653 Lab Status: Final result Specimen: Tissue from Thigh, Left Updated: 10/01/24 1554 Anaerobic Culture No anaerobic organisms isolated Tissue Culture, Aerobic Only [[id number]] (Abnormal) (Susceptibility) Collected: 09/27/241653 Lab Status: Final result Specimen: Tissue from Thigh, Left Updated: 10/01/24 1318 Tissue Culture Rare Methicillin Resistant Staphylococcus aureus Gram Stain Few Neutrophils seen No microorganisms seen Susceptibility Methicillin Resistant Staphylococcus aureus VITEK 2 METHOD Ciprofloxacin Susceptible Clindamycin Resistant Gentamicin Susceptible [1] Linezolid Susceptible Oxacillin Resistant Tetracycline Susceptible [2] Trimethoprim/Sulfa Susceptible Vancomycin Susceptible [1] Gentamicin is not appropriate for monotherapy for gram-positive infections. [2] Based on tetracycline susceptibility, this organism is considered susceptible to doxycycline. Blood culture [[id number]] (Abnormal) (Susceptibility) Collected: 09/26/24 1422 Lab Status: Final result Specimen: Blood, Venous Updated: 10/01/24 0658 Blood Culture Methicillin Resistant Staphylococcus aureus Comment: detected by PCR Isolate saved. If future testing is required, contact the Microbiology Senior Systems Developer. Gram Stain Aerobic Bottle: Gram positive cocci in clusters Susceptibility Methicillin Resistant Staphylococcus aureus VITEK 2 METHOD Clindamycin Resistant Gentamicin Susceptible [1] Linezolid Susceptible Oxacillin Resistant Trimethoprim/Sulfa Susceptible Vancomycin Susceptible [1] Gentamicin is not appropriate for monotherapy for gram-positive infections. Blood culture [[id number]] (Abnormal) Collected: 09/26/24 1845 Lab Status: Final result Specimen: Blood, Venous Updated: 10/01/24 0658 Blood Culture Methicillin Resistant Staphylococcus aureus Comment: isolated. Susceptibilities previously reported. Gram Stain Aerobic Bottle: Gram positive cocci in clusters Abscess/Wound Aspirate Culture, Aerobic & Anaerobic [[id number]] (Abnormal) Collected: 09/26/24 1650 Lab Status: Final result Specimen: Abscess from Groin, Left Updated: 09/30/24 1551 Narrative: The following orders were created for panel order Abscess/Wound Aspirate Culture, Aerobic & Anaerobic. Procedure Abnormality Status --------- ------ Abscess/Wound Aspirate C...[[id number]] Abnormal Final result Anaerobic Culture[[id number]] Final result Please view results for these tests on the individual orders. Anaerobic Culture [[id number]] Collected: 09/26/24 1650 Lab Status: Final result Specimen: Abscess from Groin, Left Updated: 09/30/24 1551 Anaerobic Culture No anaerobic organisms isolated Abscess/Wound Aspirate Culture, Aerobic & Anaerobic [[id number]] (Abnormal) Collected: 09/26/24 1702 Lab Status: Final result Specimen: Abscess from Knee, Left Updated: 09/30/24 1551 Narrative: The following orders were created for panel order Abscess/Wound Aspirate Culture, Aerobic & Anaerobic. Procedure Abnormality Status --------- ------ Abscess/Wound Aspirate C...[[id number]] Abnormal Final result Anaerobic Culture[[id number]] Final result Please view results for these tests on the individual orders. Anaerobic Culture [[id number]] Collected: 09/26/24 170 Lab Status: Final result Specimen: Abscess from Knee, Left Updated: 09/30/24 1551 Anaerobic Culture No anaerobic organisms isolated Sonicated Tissue/Implant Culture [[id number]] (Abnormal) Collected: 09/26/24 1716 Lab Status: Final result Specimen: Vascular Graft from Leg, Left Updated: 09/30/24 1349 Sonicated Tissue/Implant Culture Methicillin Resistant Staphylococcus aureus Comment: isolated from broth culture. Susceptibilities previously reported. Abscess/Wound Aspirate Culture, Aerobic Only [[id number]] (Abnormal) (Susceptibility) Collected: 09/26/24 170 Lab Status: Final result Specimen: Abscess from Knee, Left Updated: 09/30/24 1337 Abscess/Wound Aspirate Culture Many Methicillin Resistant Staphylococcus aureus Gram Stain Many neutrophils Many Gram positive cocci Susceptibility Methicillin Resistant Staphylococcus aureus VITEK 2 METHOD Ciprofloxacin Susceptible Clindamycin Resistant Gentamicin Susceptible [1] Linezolid Susceptible Oxacillin Resistant Tetracycline Susceptible [2] Trimethoprim/Sulfa Susceptible Vancomycin Susceptible [1] Gentamicin is not appropriate for monotherapy for gram-positive infections. [2] Based on tetracycline susceptibility, this organism is considered susceptible to doxycycline. Abscess/Wound Aspirate Culture, Aerobic Only [[id number]] (Abnormal) (Susceptibility) Collected: 09/26/24 1650 Lab Status: Final result Specimen: Abscess from Groin, Left Updated: 09/30/24 1336 Abscess/Wound Aspirate Culture Many Methicillin Resistant Staphylococcus aureus Gram Stain Many neutrophils Many Gram positive cocci Susceptibility Methicillin Resistant Staphylococcus aureus VITEK 2 METHOD Ciprofloxacin Susceptible Clindamycin Resistant Gentamicin Susceptible [1] Linezolid Susceptible Oxacillin Resistant Tetracycline Susceptible [2] Trimethoprim/Sulfa Susceptible Vancomycin Susceptible [1] Gentamicin is not appropriate for monotherapy for gram-positive infections. [2] Based on tetracycline susceptibility, this organism is considered susceptible to doxycycline. AFB culture [[id number]] Collected: 09/27/24 1654 Lab Status: Preliminary result Specimen: Tissue from Thigh, Left Updated: 09/29/24 1201 Acid Fast Bacilli Culture No acid fast bacilli isolated to date. Acid Fast Stain No acid fast bacilli seen AFB culture [[id number]] Collected: 09/26/24 1702 Lab Status: Preliminary result Specimen: Abscess from Knee, Left Updated: 09/29/24 1201 Acid Fast Bacilli Culture No acid fast bacilli isolated to date. Acid Fast Stain No acid fast bacilli seen Fungus culture [[id number]] Collected: 09/27/24 1654 Lab Status: Preliminary result Specimen: Tissue from Thigh, Left Updated: 09/28/24 0748 Fungus Culture No fungus isolated to date MRSA PCR Screen [[id number]] (Abnormal) Collected: 09/27/24 0751 Lab Status: Final result Specimen: Swab from Nares Updated: 09/27/24 1156 MRSA PCR Detected Narrative: This test was performed using the Xpert MRSA NxG test kit and is run on the [employer] Dx System. This test is cleared by the U.[place]. Food and Drug Administration for clinical use and its performance characteristics have been verified by the [facility] at [facility]. Fungus culture [[id number]] Collected: 09/26/24 1650 Lab Status: Preliminary result Specimen: Abscess from Groin, Left Updated: 09/27/24 0727 Fungus Culture No fungus isolated to date Fungus culture [[id number]] Collected: 09/26/24 1702 Lab Status: Preliminary result Specimen: Abscess from Knee, Left Updated: 09/27/24 0727 Fungus Culture No fungus isolated to date New Studies: - None Assessment & Plan: Geovanna Dixon Jr. is a 49 y.o. male with a history of HTN, HLD, NSTEMI, CAD s/p CABG (12/2011), DM,obesity, PAD s/p L iliofem endart and L fem-BK pop bypass and L 2nd toe amputation who was transferred from [facility] given concern for infected left fem-BK popliteal PTFE bypass. 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 10/03/24 NPO at [facility] for OR wound exploration. Wound vac off due to not holding suction. White sponge removed from incision on rounding. WTD dressings applied. Pain controlled. Will reach out to IDtoday to see if they want HELEN now or after antibiotic therapy. Plan: - Return to OR tomorrow for washout and wound vac replacement - F/u ID recs - Continue to trend CBCs - Continue to monitor RAY drain output - Continue to monitor BP, augmenting antihypertensive regimen as indicated -- Metoprolol succinate 25mg daily (10/01) -- Losartan 50mg daily (10/01) -- Consider adding back on home amlodipine - Vascular Surgery service, Stepdown LOC - VS/NV q2h - Bedrest, HOB ~ 30 - q48 hour BC until clear - Maintain mendez while on bedrest - ID consulted, appreciate recs - +MRSA from wound, ID recs Vancomycin (09/26-); dc'ed Zosyn (09/26-09/28) - Continue aspirin and statin - Tylenol, PRN oxy for pain control - DM management consulted, appreciate recs - Daily labs, replete PRN goal K 4.0; Mg 1.0 - SQH ppx - ISS - Diet today: carb control 45/45/60 level1; supplements ensure TID; NPO for OR 10/04 Anticoagulation: SQH TID for DVT prophylaxis Antiplatelet: ASA 81mg daily Rose Wright APRN 10/03/2024 Pager: [phone] * Padma Ramirez MD - 10/02/2024 7:42 PM EST Surgery Post Op Check Geovanna Dixon Jr. is a 49 y.o. male status post LLE debridement S: No nausea/vomiting, chest pain, SOB, pain well controlled, offers no complaints O: Temp: [36.4 ??C (97.5 ??F)-37.3 ??C (99.1 ??F)] Heart Rate: [79-96] Resp: [11-17] BP: (110-157)/(70-95) SpO2: [92 %-98 %] Heart Rate from SpO2: [79 bpm-96 bpm] I/O last 3 completed shifts: In: 5394.1 [P.O.:2230; I.V.:2164.1; IV Piggyback:1000] Out: 7189 [Urine:6910; Drains:68; Other:8; Blood:3] No intake/output data recorded. UOP since OR: 475 cc Physical Exam General: NAD, resting comfortably HEENT: anicteric sclerae CVS: Regular rate Pulm: Breathing comfortably on RA Abd: soft, non tender, non distended Ext: RLE: No edema. Skin warm and pink. No tissue loss. Brisk capillary refill LLE: No edema. Skin warm and pink. Wound vacs present in left inguinal region and on medial left lower leg, both holding suction. RAY drains in left inguinal region holding suction with minimal serousoutput. RAY drain in medial left lower leg not holding suction (unchanged from OR per OP note) with minimal serosanguinous output. Dressing covering medial thigh incision c/d/I. Neuro: nonfocal, moving all extremities. Sensation intact in extremities bilaterally symmetric. Motor function intact in extremities, bilaterally symmetric. Vascular Exam: L DP 2/2 PT 2/2 AP: Geovanna Dixon Jr. is a 49 y.o. male status post LLE debridement currently in stable condition and recovering well. - Pain well controlled - Hemodynamically stable - Diet: Resume carb control diet - Mednez in place - UOP adequate - Anticoagulation: subq heparin - Antiplatelet: ASA 81 Padma Ramirez MD Vascular Surgery 10/02/24 * Saul Conteh RN - 10/02/2024 3:53 PM EST 1501: Pt arrived from the OR in a bed with service and anesthesia in attendance. Monitors attached.Alarms on and audible. LLE with wound vac at continuous 75 suction . L medial thigh dressing C/D/I.3 Left leg RAY drains remain in place. 1600: Phase II criteria met. Patient is alert and oriented X4. VSS on RA. No c/o nausea and pain. Mendez in place with adequate urine output. Wound vac remains in place. Neurovascular assessment unchanged. Handoff given to ICU 4S RN. * Jennifer Marie OT - 10/02/2024 11:30 AM EST OT contact note 10/02/24 0720 Evaluation & Treatment Document Type contact Total Minutes, Occupational Therapy 0 Comment, Session Not Performed OT consult received. EDH reviewed. Pt is on bedrest with return to the OR today. OT will follow up post-op as appropriate. Thank you for this consult. JENNIFER MARIE OT [id number] * Joanie Silverio, PT - 10/02/2024 10:19 AM EST Physical Therapy Contact Note Consult received and chart reviewed. Patient remains on bedrest, awaiting OR today. Will follow up for PT evaluation once activity orders updated. Please page with any questions or concerns. Joanie Silverio PT, DPT, GCS Pager: [phone] 10/02/24 Inpatient Rehabilitation Department * Hermila White APRN - 10/02/2024 9:29 AM EST Images from the original note were not included. Vascular Surgery Progress Note Geovanna Dixon Jr. is a 49 y.o. male with history of HTN, HLD, NSTEMI, CAD s/p CABG (12/2011), DM, obesity, PAD s/p L iliofem endart and L fem-BK pop bypass and L 2nd toe amputation who was transferred from [facility] given concern for infected left fem-BK popliteal PTFE bypass. At the OSH, he underwent CT LLE with contrast that demonstrated fluid surrounding the graft and he was initiated on vancomycinand cefepime. He was noted to have a lactate of 3.6. He stated that he noticed his left groin has some swelling and some drainage about a week ago that then extended down his leg over the course of the week. He stated that he presented to the clinic (unclear where) but was not given an antibiotic. Has continued to take aspirin as well as Xarelto for his bypass and stopped smoking 1 week ago. He presented to [facility] on 09/26 and went to the OR for an urgent washout and explant of the graft, with plans for serial return to the OR as indicated for definitive management. Prior vascular history 08/01/2024: Left iliofemoral endarterectomy and left femoral to below-knee popliteal artery bypass with 7mm ringed PTFE 07/19/2024: Left 2nd toe amputation Anticoagulation: Xarelto, bypass patency Antiplatelet: Aspirin Active Hospital Problems Diagnosis Vascular graft infection, initial encounter Resolved Hospital Problems No resolved problems to display. Active Non-Hospital Problems Diagnosis 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 (SVG to PDA closed 08/2013) PAD (peripheral artery disease) Peripheral artery disease Critical limb ischemia of left lower extremity Diabetes mellitus Obesity NSTEMI (non-ST elevated myocardial infarction) HTN (hypertension) Hyperlipidemia Depression Narcolepsy Scheduled Medications: melatonin 3 mg Oral Nightly metoprolol succinate XL 25 mg Oral Daily losartan 50 mg Oral Daily magnesium oxide 400 mg Oral BID protriptyline 10 mg Oral TID insulin glargine (Lantus;Semglee) (100 unit/mL) subcutaneous injection 25 Units Subcutaneous BID vancomycin 1.5 g Intravenous Q8H insulin lispro 1-6 Units Subcutaneous Q4H JOSE insulin lispro 0-11 Units Subcutaneous TID WC acetaminophen 975 mg Oral Q6H JOSE atorvastatin 80 mg Oral QPM aspirin EC 81 mg Oral Daily methylphenidate 20 mg Oral TID pantoprazole EC 40 mg Oral Daily senna-docusate 2 tablet Oral BID venlafaxine XR 225 mg Oral Daily heparin (porcine) 5,000 Units Subcutaneous Q8H JOSE lidocaine 1 patch Transdermal Q24H Operations this hospitalization: 09/26/2024: explant of infected left femoral-below knee popliteal artery bypass graft 09/27/2024: Evacuation of abscess in left posterior thigh compartment via AK popliteal incision Irrigation of left groin and calf incision sites 09/28/2024: left great saphenous vein harvest, vein patch angioplasty L common femoral artery and BK popliteal artery, sartorius flap placement over L femoral artery, excisional debridement and washout of L groin with wound vac placement 09/29/2024: repeat exploration of L femoral artery and LLE washout, wound vac placement L calf 24 hour events/Subjective - No acute events overnight - RAY drain with decreased output, 60ccs from 130ccs - Leukocytosis 10.93 from 10.15 - Hgb 9.6 from 9.1 - Last Bowel Movement: (CUTTING SUPERVISOR) Objective: Temp: [36.2 ??C (97.1 ??F)-36.9 ??C (98.5 ??F)] Heart Rate: [78-97] Resp: [13-20] BP: (133-162)/(81-98) SpO2: [93 %-98 %] Heart Rate from SpO2: [78 bpm-94 bpm] BMI: Weight: 105 kg (231 lb 7.7 oz) (09/30/24 0000) BMI (Calculated): 32.36 BMI Classification: Obese Intake/Output Summary (Last 24 hours) at 10/02/2024 0929 Last data filed at 10/02/2024 0800 Gross per 24 hour Intake 3814.1 ml Output 4762 ml Net -947.9 ml PHYSICAL EXAM: GEN: Alert and appears stated age. Cooperative. In NAD. HEENT: Normocephalic and atraumatic. CV: Regular rate. Pulm: Breathing comfortably on room air. Abd: Soft, non-distended, non-tender to palpation. Skin: Color, texture, turgor normal. No rashes or lesions. Neuro: No gross sensory or motor abnormality. Extremities: L groin incision site with 1 abd pad and 4x4s: small to moderate serosanguinous drainage, more serous looking; no active bleeding, dressing replaced at bedside. Superior aspect of groin incision with yung drains and wound vac to suction and incision well-approximated with cameron, no erythema or edema. Calf incision c/d/i with wound vac to suction Vascular: LLE DP and PT signals present Labs: Recent Labs 10/02/24 0041 10/01/24 0202 09/29/24 2352 WBC 10.93* 10.15* 9.54* HGB 9.6* 9.1* 8.7* HCT 28.6* 26.9* 25.8* PLATELET 546* 444* 411* Recent Labs 10/02/24 0041 10/01/24 0202 09/30/24 0627 09/29/24 2352 NA 138 138 -- 138 K 3.9 3.9 3.9 3.4* CL 105 105 -- 103 CO2 24 -- 24 BUN 11 10 -- 9* CREATININE 0.49* 0.47* -- 0.48* PHOS 4.1 3.9 -- -- CALCIUM 8.2* 8.1* -- 8.1* Microbiology: Microbiology Results (last 7 days) Procedure Component Value - Date/Time Blood culture [[id number]] (Abnormal) Collected: 09/27/242132 Lab Status: Final result Specimen: Blood, Venous Updated: 10/02/24 0804 Blood Culture Methicillin Resistant Staphylococcus aureus Comment: Susceptibilities previously reported. Gram Stain Aerobic Bottle: Gram positive cocci in clusters Blood culture [[id number]] Collected: 09/29/242123 Lab Status: Preliminary result Specimen: Blood, Venous Updated: 10/01/24 230 Blood Culture No growth at 48 hours Blood culture [[id number]] Collected: 09/29/242123 Lab Status: Preliminary result Specimen: Blood, Venous Updated: 10/01/24 230 Blood Culture No growth at 48 hours Blood culture [[id number]] Collected: 09/28/24 174 Lab Status: Preliminary result Specimen: Blood, Venous Updated: 10/01/24 1901 Blood Culture No growth at 72 hours Tissue Culture, Aerobic & Anaerobic [[id number]] Collected: 09/27/241653 Lab Status: Final result Specimen: Tissue from Thigh, Left Updated: 10/01/24 155 Narrative: The following orders were created for panel order Tissue Culture, Aerobic & Anaerobic. Procedure Abnormality Status --------- ------ Tissue Culture, Aerobic ...[[id number]] Anaerobic Culture[[id number]] Final result Please view results for these tests on the individual orders. Anaerobic Culture [[id number]] Collected: 09/27/241653 Lab Status: Final result Specimen: Tissue from Thigh, Left Updated: 10/01/24 155 Anaerobic Culture No anaerobic organisms isolated Tissue Culture, Aerobic Only [[id number]] (Abnormal) (Susceptibility) Collected: 09/27/241653 Lab Status: Final result Specimen: Tissue from Thigh, Left Updated: 10/01/24 1318 Tissue Culture Rare Methicillin Resistant Staphylococcus aureus Gram Stain Few Neutrophils seen No microorganisms seen Susceptibility Methicillin Resistant Staphylococcus aureus VITEK 2 METHOD Ciprofloxacin Susceptible Clindamycin Resistant Gentamicin Susceptible [1] Linezolid Susceptible Oxacillin Resistant Tetracycline Susceptible [2] Trimethoprim/Sulfa Susceptible Vancomycin Susceptible [1] Gentamicin is not appropriate for monotherapy for gram-positive infections. [2] Based on tetracycline susceptibility, this organism is considered susceptible to doxycycline. Blood culture [[id number]] (Abnormal) (Susceptibility) Collected: 09/26/24 1422 Lab Status: Final result Specimen: Blood, Venous Updated: 10/01/24 0658 Blood Culture Methicillin Resistant Staphylococcus aureus Comment: detected by PCR Isolate saved. If future testing is required, contact the Microbiology Senior Systems Developer. Gram Stain Aerobic Bottle: Gram positive cocci in clusters Susceptibility Methicillin Resistant Staphylococcus aureus VITEK 2 METHOD Clindamycin Resistant Gentamicin Susceptible [1] Linezolid Susceptible Oxacillin Resistant Trimethoprim/Sulfa Susceptible Vancomycin Susceptible [1] Gentamicin is not appropriate for monotherapy for gram-positive infections. Blood culture [[id number]] (Abnormal) Collected: 09/26/24 1845 Lab Status: Final result Specimen: Blood, Venous Updated: 10/01/24 0658 Blood Culture Methicillin Resistant Staphylococcus aureus Comment: isolated. Susceptibilities previously reported. Gram Stain Aerobic Bottle: Gram positive cocci in clusters Abscess/Wound Aspirate Culture, Aerobic & Anaerobic [[id number]] (Abnormal) Collected: 09/26/24 1650 Lab Status: Final result Specimen: Abscess from Groin, Left Updated: 09/30/24 1551 Narrative: The following orders were created for panel order Abscess/Wound Aspirate Culture, Aerobic & Anaerobic. Procedure Abnormality Status --------- ------ Abscess/Wound Aspirate C...[[id number]] Abnormal Final result Anaerobic Culture[[id number]] Final result Please view results for these tests on the individual orders. Anaerobic Culture [[id number]] Collected: 09/26/24 1650 Lab Status: Final result Specimen: Abscess from Groin, Left Updated: 09/30/24 1551 Anaerobic Culture No anaerobic organisms isolated Abscess/Wound Aspirate Culture, Aerobic & Anaerobic [[id number]] (Abnormal) Collected: 09/26/24 1702 Lab Status: Final result Specimen: Abscess from Knee, Left Updated: 09/30/24 1551 Narrative: The following orders were created for panel order Abscess/Wound Aspirate Culture, Aerobic & Anaerobic. Procedure Abnormality Status --------- ------ Abscess/Wound Aspirate C...[[id number]] Abnormal Final result Anaerobic Culture[[id number]] Final result Please view results for these tests on the individual orders. Anaerobic Culture [[id number]] Collected: 09/26/24 1702 Lab Status: Final result Specimen: Abscess from Knee, Left Updated: 09/30/24 1551 Anaerobic Culture No anaerobic organisms isolated Sonicated Tissue/Implant Culture [[id number]] (Abnormal) Collected: 09/26/24 1716 Lab Status: Final result Specimen: Vascular Graft from Leg, Left Updated: 09/30/24 1349 Sonicated Tissue/Implant Culture Methicillin Resistant Staphylococcus aureus Comment: isolated from broth culture. Susceptibilities previously reported. Abscess/Wound Aspirate Culture, Aerobic Only [[id number]] (Abnormal) (Susceptibility) Collected: 09/26/24 1702 Lab Status: Final result Specimen: Abscess from Knee, Left Updated: 09/30/24 1337 Abscess/Wound Aspirate Culture Many Methicillin Resistant Staphylococcus aureus Gram Stain Many neutrophils Many Gram positive cocci Susceptibility Methicillin Resistant Staphylococcus aureus VITEK 2 METHOD Ciprofloxacin Susceptible Clindamycin Resistant Gentamicin Susceptible [1] Linezolid Susceptible Oxacillin Resistant Tetracycline Susceptible [2] Trimethoprim/Sulfa Susceptible Vancomycin Susceptible [1] Gentamicin is not appropriate for monotherapy for gram-positive infections. [2] Based on tetracycline susceptibility, this organism is considered susceptible to doxycycline. Abscess/Wound Aspirate Culture, Aerobic Only [[id number]] (Abnormal) (Susceptibility) Collected: 09/26/24 1650 Lab Status: Final result Specimen: Abscess from Groin, Left Updated: 09/30/24 1336 Abscess/Wound Aspirate Culture Many Methicillin Resistant Staphylococcus aureus Gram Stain Many neutrophils Many Gram positive cocci Susceptibility Methicillin Resistant Staphylococcus aureus VITEK 2 METHOD Ciprofloxacin Susceptible Clindamycin Resistant Gentamicin Susceptible [1] Linezolid Susceptible Oxacillin Resistant Tetracycline Susceptible [2] Trimethoprim/Sulfa Susceptible Vancomycin Susceptible [1] Gentamicin is not appropriate for monotherapy for gram-positive infections. [2] Based on tetracycline susceptibility, this organism is considered susceptible to doxycycline. AFB culture [[id number]] Collected: 09/27/24 1654 Lab Status: Preliminary result Specimen: Tissue from Thigh, Left Updated: 09/29/24 1201 Acid Fast Bacilli Culture No acid fast bacilli isolated to date. Acid Fast Stain No acid fast bacilli seen AFB culture [[id number]] Collected: 09/26/24 170 Lab Status: Preliminary result Specimen: Abscess from Knee, Left Updated: 09/29/24 1201 Acid Fast Bacilli Culture No acid fast bacilli isolated to date. Acid Fast Stain No acid fast bacilli seen Fungus culture [[id number]] Collected: 09/27/24 1654 Lab Status: Preliminary result Specimen: Tissue from Thigh, Left Updated: 09/28/24 0748 Fungus Culture No fungus isolated to date MRSA PCR Screen [[id number]] (Abnormal) Collected: 09/27/24 0751 Lab Status: Final result Specimen: Swab from Nares Updated: 09/27/24 1156 MRSA PCR Detected Narrative: This test was performed using the Xpert MRSA NxG test kit and is run on the [employer] GeneXpert Dx System. This test is cleared by the [place]. Food and Drug Administration for clinical use and its performance characteristics have been verified by the [facility] at [facility]. Fungus culture [[id number]] Collected: 09/26/24 1650 Lab Status: Preliminary result Specimen: Abscess from Groin, Left Updated: 09/27/24 0727 Fungus Culture No fungus isolated to date Fungus culture [[id number]] Collected: 09/26/24 170 Lab Status: Preliminary result Specimen: Abscess from Knee, Left Updated: 09/27/24 0727 Fungus Culture No fungus isolated to date New Studies: - None Assessment & Plan: Geovanna Dixon Jr. is a 49 y.o. male with a history of HTN, HLD, NSTEMI, CAD s/p CABG (12/2011), DM,obesity, PAD s/p L iliofem endart and L fem-BK pop bypass and L 2nd toe amputation who was transferred from [facility] given concern for infected left fem-BK popliteal PTFE bypass. 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 Plan: - Return to OR today for washout and wound vac replacement - F/u ID recs - Continue to trend CBCs - Continue to monitor RAY drain output - Continue to monitor BP, augmenting antihypertensive regimen as indicated -- Metoprolol succinate 25mg daily (10/01) -- Losartan 50mg daily (10/01) -- Consider adding back on home amlodipine - Vascular Surgery service, Stepdown LOC - VS/NV q2h - Bedrest, HOB ~ 30 - q48 hour BC until clear - Maintain mendez while on bedrest - ID consulted, appreciate recs - +MRSA from wound, ID recs Vancomycin (09/26-); dc'ed Zosyn (09/26-09/28) - Continue aspirin and statin - Tylenol, PRN oxy for pain control - DM management consulted, appreciate recs - Daily labs, replete PRN goal K 4.0; Mg 1.0 - SQH ppx - ISS - Diet today: NPO for OR Anticoagulation: SQH TID for DVT prophylaxis Antiplatelet: ASA 81mg daily Hermila White APRN 10/02/2024 Pager: [phone] * María Carranza APRN - 10/01/2024 8:41 AM EST Images from the original note were not included. Vascular Surgery Progress Note Geovanna Dixon Jr. is a 49 y.o. male with history of HTN, HLD, NSTEMI, CAD s/p CABG (12/2011), DM, obesity, PAD s/p L iliofem endart and L fem-BK pop bypass and L 2nd toe amputation who was transferred from [facility] given concern for infected left fem-BK popliteal PTFE bypass. At the OSH, he underwent CT LLE with contrast that demonstrated fluid surrounding the graft and he was initiated on vancomycinand cefepime. He was noted to have a lactate of 3.6. He stated that he noticed his left groin has some swelling and some drainage about a week ago that then extended down his leg over the course of the week. He stated that he presented to the clinic (unclear where) but was not given an antibiotic. Has continued to take aspirin as well as Xarelto for his bypass and stopped smoking 1 week ago. He presented to [facility] on 09/26 and went to the OR for an urgent washout and explant of the graft, with plans for serial return to the OR as indicated for definitive management. Prior vascular history 08/01/2024: Left iliofemoral endarterectomy and left femoral to below-knee popliteal artery bypass with 7mm ringed PTFE 07/19/2024: Left 2nd toe amputation Anticoagulation: Xarelto, bypass patency Antiplatelet: Aspirin Active Hospital Problems Diagnosis Vascular graft infection, initial encounter Resolved Hospital Problems No resolved problems to display. Active Non-Hospital Problems Diagnosis 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 (SVG to PDA closed 08/2013) PAD (peripheral artery disease) Peripheral artery disease Critical limb ischemia of left lower extremity Diabetes mellitus Obesity NSTEMI (non-ST elevated myocardial infarction) HTN (hypertension) Hyperlipidemia Depression Narcolepsy Scheduled Medications: metoprolol succinate XL 25 mg Oral Daily losartan 50 mg Oral Daily magnesium oxide 400 mg Oral BID polyethylene glycoL (MIRALAX) oral powder 17 g Oral Daily protriptyline 10 mg Oral TID insulin glargine (Lantus;Semglee) (100 unit/mL) subcutaneous injection 25 Units Subcutaneous BID vancomycin 1.5 g Intravenous Q8H insulin lispro 1-6 Units Subcutaneous Q4H JOSE insulin lispro 0-11 Units Subcutaneous TID WC acetaminophen 975 mg Oral Q6H JOSE atorvastatin 80 mg Oral QPM aspirin EC 81 mg Oral Daily methylphenidate 20 mg Oral TID pantoprazole EC 40 mg Oral Daily senna-docusate 2 tablet Oral BID venlafaxine XR 225 mg Oral Daily heparin (porcine) 5,000 Units Subcutaneous Q8H JOSE lidocaine 1 patch Transdermal Q24H Operations this hospitalization: 09/26/2024: explant of infected left femoral-below knee popliteal artery bypass graft 09/27/2024: Evacuation of abscess in left posterior thigh compartment via AK popliteal incision Irrigation of left groin and calf incision sites 09/28/2024: left great saphenous vein harvest, vein patch angioplasty L common femoral artery and BK popliteal artery, sartorius flap placement over L femoral artery, excisional debridement and washout of L groin with wound vac placement 09/29/2024: repeat exploration of L femoral artery and LLE washout, wound vac placement L calf 24 hour events/Subjective - gentle irrigation at BSD today with light serosang drainage, no purulence or malodor noted - NAEO, SBP 151-186; home metoprolol restarted, hydralazine x 1 overnight - WBC 10.1(9.5) - lytes WNL - BM CUTTING SUPERVISOR (09/26) - BC NGTD Objective: Temp: [36.6 ??C (97.9 ??F)-37.2 ??C (99 ??F)] Heart Rate: [76-97] Resp: [13-23] BP: (140-186)/(71-90) SpO2: [93 %-100 %] Heart Rate from SpO2: [77 bpm-91 bpm] BMI: Weight: 105 kg (231 lb 7.7 oz) (09/30/24 0000) BMI (Calculated): 32.36 BMI Classification: Obese Intake/Output Summary (Last 24 hours) at 10/01/2024 0841 Last data filed at 10/01/2024 0701 Gross per 24 hour Intake 3286.3 ml Output 4636 ml Net -1349.7 ml PHYSICAL EXAM: GEN: Alert and appears stated age. Cooperative. In NAD. HEENT: Normocephalic and atraumatic. CV: Regular rate. Pulm: Breathing on room air. 96% Abd: Soft, non-distended, non-tender to palpation. Skin: Color, texture, turgor normal. No rashes or lesions. Neuro: No gross sensory or motor abnormality. Extremities: L groin incision site with abd pad with small to moderate serosanguinous drainage moreserous looking; no active bleeding, dressing replaced at bedside. Superior aspect of groin incisionwith yung drains and wound vac to suction and incision well-approximated with cameron, no erythema or edema. Calf incision c/d/I with wound vac to suction Vascular: LLE DP and PT signals present Labs: Recent Labs 10/01/24 0202 09/29/24 2352 09/28/24 2351 WBC 10.15* 9.54* 12.76* HGB 9.1* 8.7* 8.5* HCT 26.9* 25.8* 24.7* PLATELET 444* 411* 331 Recent Labs 10/01/24 0202 09/30/24 0627 09/29/24 2352 09/28/24 2351 09/28/24 1045 NA 138 -- 138 137 -- K 3.9 3.9 3.4* 3.2* 4.6 CL 105 -- 103 105 -- CO2 24 -- 24 21* -- BUN 10 -- 9* 6* -- CREATININE 0.47* -- 0.48* 0.52* -- PHOS 3.9 -- -- -- -- CALCIUM 8.1* -- 8.1* 6.7* -- Microbiology: Microbiology Results (last 7 days) Procedure Component Value - Date/Time Blood culture [[id number]] (Abnormal) (Susceptibility) Collected: 09/26/24 1422 Lab Status: Final result Specimen: Blood, Venous Updated: 10/01/24 0658 Blood Culture Methicillin Resistant Staphylococcus aureus Comment: detected by PCR Isolate saved. If future testing is required, contact the Microbiology Senior Systems Developer. Gram Stain Aerobic Bottle: Gram positive cocci in clusters Susceptibility Methicillin Resistant Staphylococcus aureus VITEK 2 METHOD Clindamycin Resistant Gentamicin Susceptible [1] Linezolid Susceptible Oxacillin Resistant Trimethoprim/Sulfa Susceptible Vancomycin Susceptible [1] Gentamicin is not appropriate for monotherapy for gram-positive infections. Blood culture [[id number]] (Abnormal) Collected: 09/26/24 1845 Lab Status: Final result Specimen: Blood, Venous Updated: 10/01/24 0658 Blood Culture Methicillin Resistant Staphylococcus aureus Comment: isolated. Susceptibilities previously reported. Gram Stain Aerobic Bottle: Gram positive cocci in clusters Blood culture [[id number]] Collected: 09/29/242123 Lab Status: Preliminary result Specimen: Blood, Venous Updated: 09/30/24 2301 Blood Culture No Growth at 18-24 hrs. Blood culture [[id number]] Collected: 09/29/242123 Lab Status: Preliminary result Specimen: Blood, Venous Updated: 09/30/24 2301 Blood Culture No Growth at 18-24 hrs. Blood culture [[id number]] Collected: 09/28/24 1749 Lab Status: Preliminary result Specimen: Blood, Venous Updated: 09/30/24 1901 Blood Culture No growth at 48 hours Abscess/Wound Aspirate Culture, Aerobic & Anaerobic [[id number]] (Abnormal) Collected: 09/26/24 1650 Lab Status: Final result Specimen: Abscess from Groin, Left Updated: 09/30/24 1551 Narrative: The following orders were created for panel order Abscess/Wound Aspirate Culture, Aerobic & Anaerobic. Procedure Abnormality Status --------- ------ Abscess/Wound Aspirate C...[[id number]] Abnormal Final result Anaerobic Culture[[id number]] Final result Please view results for these tests on the individual orders. Anaerobic Culture [[id number]] Collected: 09/26/24 165 Lab Status: Final result Specimen: Abscess from Groin, Left Updated: 09/30/24 1551 Anaerobic Culture No anaerobic organisms isolated Abscess/Wound Aspirate Culture, Aerobic & Anaerobic [[id number]] (Abnormal) Collected: 09/26/24 1702 Lab Status: Final result Specimen: Abscess from Knee, Left Updated: 09/30/24 1551 Narrative: The following orders were created for panel order Abscess/Wound Aspirate Culture, Aerobic & Anaerobic. Procedure Abnormality Status --------- ------ Abscess/Wound Aspirate C...[[id number]] Abnormal Final result Anaerobic Culture[[id number]] Final result Please view results for these tests on the individual orders. Anaerobic Culture [[id number]] Collected: 09/26/24 1702 Lab Status: Final result Specimen: Abscess from Knee, Left Updated: 09/30/24 1551 Anaerobic Culture No anaerobic organisms isolated Sonicated Tissue/Implant Culture [[id number]] (Abnormal) Collected: 09/26/24 1716 Lab Status: Final result Specimen: Vascular Graft from Leg, Left Updated: 09/30/24 1349 Sonicated Tissue/Implant Culture Methicillin Resistant Staphylococcus aureus Comment: isolated from broth culture. Susceptibilities previously reported. Abscess/Wound Aspirate Culture, Aerobic Only [[id number]] (Abnormal) (Susceptibility) Collected: 09/26/24 1702 Lab Status: Final result Specimen: Abscess from Knee, Left Updated: 09/30/24 1337 Abscess/Wound Aspirate Culture Many Methicillin Resistant Staphylococcus aureus Gram Stain Many neutrophils Many Gram positive cocci Susceptibility Methicillin Resistant Staphylococcus aureus VITEK 2 METHOD Ciprofloxacin Susceptible Clindamycin Resistant Gentamicin Susceptible [1] Linezolid Susceptible Oxacillin Resistant Tetracycline Susceptible [2] Trimethoprim/Sulfa Susceptible Vancomycin Susceptible [1] Gentamicin is not appropriate for monotherapy for gram-positive infections. [2] Based on tetracycline susceptibility, this organism is considered susceptible to doxycycline. Abscess/Wound Aspirate Culture, Aerobic Only [[id number]] (Abnormal) (Susceptibility) Collected: 09/26/24 1650 Lab Status: Final result Specimen: Abscess from Groin, Left Updated: 09/30/24 1336 Abscess/Wound Aspirate Culture Many Methicillin Resistant Staphylococcus aureus Gram Stain Many neutrophils Many Gram positive cocci Susceptibility Methicillin Resistant Staphylococcus aureus VITEK 2 METHOD Ciprofloxacin Susceptible Clindamycin Resistant Gentamicin Susceptible [1] Linezolid Susceptible Oxacillin Resistant Tetracycline Susceptible [2] Trimethoprim/Sulfa Susceptible Vancomycin Susceptible [1] Gentamicin is not appropriate for monotherapy for gram-positive infections. [2] Based on tetracycline susceptibility, this organism is considered susceptible to doxycycline. Blood culture [[id number]] (Abnormal) Collected: 09/27/24 2133 Lab Status: Preliminary result Specimen: Blood, Venous Updated: 09/30/24 0718 Blood Culture Methicillin Resistant Staphylococcus aureus Comment: Susceptibilities previously reported. Gram Stain Aerobic Bottle: Gram positive cocci in clusters AFB culture [[id number]] Collected: 09/27/241653 Lab Status: Preliminary result Specimen: Tissue from Thigh, Left Updated: 09/29/24 1201 Acid Fast Bacilli Culture No acid fast bacilli isolated to date. Acid Fast Stain No acid fast bacilli seen AFB culture [[id number]] Collected: 09/26/24 1702 Lab Status: Preliminary result Specimen: Abscess from Knee, Left Updated: 09/29/24 1201 Acid Fast Bacilli Culture No acid fast bacilli isolated to date. Acid Fast Stain No acid fast bacilli seen Tissue Culture, Aerobic Only [[id number]] (Abnormal) (Susceptibility) Collected: 09/27/24 165 Lab Status: Preliminary result Specimen: Tissue from Thigh, Left Updated: 09/29/24 1106 Tissue Culture Rare Methicillin Resistant Staphylococcus aureus Gram Stain Few Neutrophils seen No microorganisms seen Susceptibility Methicillin Resistant Staphylococcus aureus VITEK 2 METHOD Ciprofloxacin Susceptible Clindamycin Resistant Gentamicin Susceptible [1] Linezolid Susceptible Oxacillin Resistant Tetracycline Susceptible [2] Trimethoprim/Sulfa Susceptible Vancomycin Susceptible [1] Gentamicin is not appropriate for monotherapy for gram-positive infections. [2] Based on tetracycline susceptibility, this organism is considered susceptible to doxycycline. Anaerobic Culture [[id number]] Collected: 09/27/241653 Lab Status: Preliminary result Specimen: Tissue from Thigh, Left Updated: 09/28/24 1355 Anaerobic Culture No anaerobic organisms isolated to date Fungus culture [[id number]] Collected: 09/27/241653 Lab Status: Preliminary result Specimen: Tissue from Thigh, Left Updated: 09/28/24 0748 Fungus Culture No fungus isolated to date MRSA PCR Screen [[id number]] (Abnormal) Collected: 09/27/24 0751 Lab Status: Final result Specimen: Swab from Nares Updated: 09/27/24 1156 MRSA PCR Detected Narrative: This test was performed using the Xpert MRSA NxG test kit and is run on the [employer] Dx System. This test is cleared by the U.S. Food and Drug Administration for clinical use and its performance characteristics have been verified by the [facility] at [facility]. Fungus culture [[id number]] Collected: 09/26/241649 Lab Status: Preliminary result Specimen: Abscess from Groin, Left Updated: 09/27/24 0727 Fungus Culture No fungus isolated to date Fungus culture [[id number]] Collected: 09/26/24 1702 Lab Status: Preliminary result Specimen: Abscess from Knee, Left Updated: 09/27/24 0727 Fungus Culture No fungus isolated to date New Studies: ELEN 09/28/24: Diabetes mellitus: Yes Findings: Right Pressure (mm Hg) ELEN Waveform TBI Dorsalis Pedis (Ankle) Artery 131 1.07 Triphasic Posterior Tibial (Ankle) Artery 142 1.16 Triphasic Great Toe 94 0.77 Left Pressure (mm Hg) ELEN Waveform TBI Brachial Artery 122 Dorsalis Pedis (Ankle) Artery 37 0.30 Monophasic Posterior Tibial (Ankle) Artery 36 0.30 Monophasic Great Toe 0 0.00 Interpretation: RIGHT: No significant lower extremity arterial occlusive disease identified at rest. Normal ankle/brachial pressure ratios and ankle Doppler waveforms. No significant change compared to previous exam on 07/17/2024. LEFT: Severe lower extremity arterial occlusive disease. Toe waveform is absent. Significant deterioration compared to previous exam on 07/17/2024. Assessment & Plan: Geovanna Dixon Jr. is a 49 y.o. male with a history of HTN, HLD, NSTEMI, CAD s/p CABG (12/2011), DM,obesity, PAD s/p L iliofem endart and L fem-BK pop bypass and L 2nd toe amputation who was transferred from [facility] given concern for infected left fem-BK popliteal PTFE bypass. 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 10/01/24: Tolerated gentle irrigation with saline at BSD today with clear to mildly serosang drainage - no purulence or malodor noted and patient tolerated well. Will plan for NPO at [facility] for return Sylwia tomorrow. Hypertensive overnight, home metoprolol added back. Consider home amlodipine as well, continue to hold home lisinopril. Plan: - Vascular Service, Stepdown LOC - VS/NV q 2 - Bedrest, HOB ~ 30 - q48 hour BC until clear - Maintain mendez while bed rest - +MRSA from wound, ID recs Vancomycin (09/26-); dc'ed zosyn (09/26-09/28) - Continue aspirin and statin - Tylenol, PRN oxy for pain control - ID consulted, appreciate recs - DM management consulted, appreciate recs - Daily labs, replete PRN goal K 4.0; Mg 1.0 - SQH ppx - ISS - diet today; NPO at [facility] for OR Tuesday 10/02 Anticoagulation: SQH TID Antiplatelet: ASA 81 María Carranza APRN 10/01/2024 Pager: [phone] * Karolyn Hudson MD - 09/30/2024 11:21 AM EST Images from the original note were not included. Vascular Surgery Progress Note Patient ID Geovanna Dixon Jr. is a 49 y.o. male with history of HTN, HLD, NSTEMI, CAD s/p CABG (12/2011), DM, obesity, PAD s/p L iliofem endart and L fem-BK pop bypass and L 2nd toe amputation who was transferred from [facility] given concern for infected left fem-BK popliteal PTFE bypass. At the OSH, he underwent CT LLE with contrast that demonstrated fluid surrounding the graft and he was initiated on vancomycinand cefepime. He was noted to have a lactate of 3.6. He stated that he noticed his left groin has some swelling and some drainage about a week ago that then extended down his leg over the course of the week. He stated that he presented to the clinic (unclear where) but was not given an antibiotic. Has continued to take aspirin as well as Xarelto for his bypass and stopped smoking 1 week ago. He presented to [facility] on 09/26 and went to the OR for an urgent washout and explant of the graft, with plans for serial return to the OR as indicated for definitive management. Prior vascular history 08/01/2024: Left iliofemoral endarterectomy and left femoral to below-knee popliteal artery bypass with 7mm ringed PTFE 07/19/2024: Left 2nd toe amputation Operations this hospitalization: 09/26/2024: explant of infected left femoral-below knee popliteal artery bypass graft 09/27/2024: Evacuation of abscess in left posterior thigh compartment via AK popliteal incision Irrigation of left groin and calf incision sites 09/28/2024: left great saphenous vein harvest, vein patch angioplasty L common femoral artery and BK popliteal artery, sartorius flap placement over L femoral artery, excisional debridement and washout of L groin with wound vac placement 09/29/2024: repeat exploration of L femoral artery and LLE washout, wound vac placement L calf Anticoagulation: Xarelto, bypass patency Antiplatelet: Aspirin Active Hospital Problems Diagnosis Vascular graft infection, initial encounter Resolved Hospital Problems No resolved problems to display. Active Non-Hospital Problems Diagnosis 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 (SVG to PDA closed 08/2013) PAD (peripheral artery disease) Peripheral artery disease Critical limb ischemia of left lower extremity Diabetes mellitus Obesity NSTEMI (non-ST elevated myocardial infarction) HTN (hypertension) Hyperlipidemia Depression Narcolepsy Scheduled Medications: polyethylene glycoL (MIRALAX) oral powder 17 g Oral Daily metoproloL tartrate 12.5 mg Oral 2 times per day protriptyline 10 mg Oral TID insulin glargine (Lantus;Semglee) (100 unit/mL) subcutaneous injection 25 Units Subcutaneous BID vancomycin 1.5 g Intravenous Q8H insulin lispro 1-6 Units Subcutaneous Q4H JOSE insulin lispro 0-11 Units Subcutaneous TID WC acetaminophen 975 mg Oral Q6H JOSE atorvastatin 80 mg Oral QPM aspirin EC 81 mg Oral Daily methylphenidate 20 mg Oral TID pantoprazole EC 40 mg Oral Daily senna-docusate 2 tablet Oral BID venlafaxine XR 225 mg Oral Daily heparin (porcine) 5,000 Units Subcutaneous Q8H JOSE lidocaine 1 patch Transdermal Q24H 24 hour events/Subjective - repeat washout yesterday, doing well post-operatively. Pain overall well-controlled - tolerating diet. Encouraged protein shakes - WBC downtrending 9.54 (12.76), Hgb 8.7 (8.5) - continues on vanc per ID, blood cx with NGTD Objective BMI: Weight: 105 kg (231 lb 7.7 oz) (09/30/24 0000) BMI (Calculated): 32.36 BMI Classification: Obese Intake/Output Summary (Last 24 hours) at 09/30/2024 1122 Last data filed at 09/30/2024 1000 Gross per 24 hour Intake 2632 ml Output 1631 ml Net 1001 ml Temp: [36.3 ??C (97.3 ??F)-36.9 ??C (98.4 ??F)] Heart Rate: [76-89] Resp: [12-22] BP: (157)/(71) SpO2: [92 %-97 %] Heart Rate from SpO2: [76 bpm-91 bpm] Physical Exam: GEN: Alert and appears stated age. Cooperative. In NAD. HEENT: Normocephalic and atraumatic. CV: Regular rate. Pulm: Breathing on room air. 96% Abd: Soft, non-distended, non-tender to palpation. Skin: Color, texture, turgor normal. No rashes or lesions. Neuro: No gross sensory or motor abnormality. Extremities: L groin incision site with abd pad with small to moderate serosanguinous drainage moreserous looking; no active bleeding, dressing replaced at bedside. Superior aspect of groin incisionwith yung drains and wound vac to suction and incision well-approximated with cameron, no erythema or edema. Calf incision c/d/I with wound vac to suction Vascular: LLE DP and PT signals present Labs Last 3 wbc, hgb, hct plt Recent Labs 09/29/24 2352 09/28/24 2351 09/27/24 2358 WBC 9.54* 12.76* 17.15* HGB 8.7* 8.5* 10.4* HCT 25.8* 24.7* 30.5* PLATELET 411* 331 316 Microbiology Microbiology Results (last 7 days) Procedure Component Value - Date/Time Blood culture [[id number]] (Abnormal) Collected: 09/27/24 2133 Lab Status: Preliminary result Specimen: Blood, Venous Updated: 09/30/24 0718 Blood Culture Methicillin Resistant Staphylococcus aureus Comment: Susceptibilities previously reported. Gram Stain Aerobic Bottle: Gram positive cocci in clusters Blood culture [[id number]] Collected: 09/28/24 1749 Lab Status: Preliminary result Specimen: Blood, Venous Updated: 09/29/24 1901 Blood Culture No Growth at 18-24 hrs. AFB culture [[id number]] Collected: 09/27/24 1654 Lab Status: Preliminary result Specimen: Tissue from Thigh, Left Updated: 09/29/24 1201 Acid Fast Bacilli Culture No acid fast bacilli isolated to date. Acid Fast Stain No acid fast bacilli seen AFB culture [[id number]] Collected: 09/26/24 1702 Lab Status: Preliminary result Specimen: Abscess from Knee, Left Updated: 09/29/24 1201 Acid Fast Bacilli Culture No acid fast bacilli isolated to date. Acid Fast Stain No acid fast bacilli seen Sonicated Tissue/Implant Culture [[id number]] (Abnormal) Collected: 09/26/24 1716 Lab Status: Preliminary result Specimen: Vascular Graft from Leg, Left Updated: 09/29/24 1132 Sonicated Tissue/Implant Culture Methicillin Resistant Staphylococcus aureus Comment: isolated from broth culture. Susceptibilities previously reported. Tissue Culture, Aerobic Only [[id number]] (Abnormal) (Susceptibility) Collected: 09/27/24 1654 Lab Status: Preliminary result Specimen: Tissue from Thigh, Left Updated: 09/29/24 1106 Tissue Culture Rare Methicillin Resistant Staphylococcus aureus Gram Stain Few Neutrophils seen No microorganisms seen Susceptibility Methicillin Resistant Staphylococcus aureus VITEK 2 METHOD Ciprofloxacin Susceptible Clindamycin Resistant Gentamicin Susceptible [1] Linezolid Susceptible Oxacillin Resistant Tetracycline Susceptible [2] Trimethoprim/Sulfa Susceptible Vancomycin Susceptible [1] Gentamicin is not appropriate for monotherapy for gram-positive infections. [2] Based on tetracycline susceptibility, this organism is considered susceptible to doxycycline. Blood culture [[id number]] (Abnormal) Collected: 09/26/24 1845 Lab Status: Preliminary result Specimen: Blood, Venous Updated: 09/29/24 0719 Blood Culture Methicillin Resistant Staphylococcus aureus Comment: isolated. Susceptibilities previously reported. Gram Stain Aerobic Bottle: Gram positive cocci in clusters Blood culture [[id number]] (Abnormal) (Susceptibility) Collected: 09/26/24 1422 Lab Status: Preliminary result Specimen: Blood, Venous Updated: 09/29/24 0717 Blood Culture Methicillin Resistant Staphylococcus aureus Comment: detected by PCR Isolate saved. If future testing is required, contact the Microbiology Senior Systems Developer. Gram Stain Aerobic Bottle: Gram positive cocci in clusters Susceptibility Methicillin Resistant Staphylococcus aureus VITEK 2 METHOD Clindamycin Resistant Gentamicin Susceptible [1] Linezolid Susceptible Oxacillin Resistant Trimethoprim/Sulfa Susceptible Vancomycin Susceptible [1] Gentamicin is not appropriate for monotherapy for gram-positive infections. Anaerobic Culture [[id number]] Collected: 09/27/24 1654 Lab Status: Preliminary result Specimen: Tissue from Thigh, Left Updated: 09/28/24 1355 Anaerobic Culture No anaerobic organisms isolated to date Abscess/Wound Aspirate Culture, Aerobic Only [[id number]] (Abnormal) (Susceptibility) Collected: 09/26/24 1702 Lab Status: Preliminary result Specimen: Abscess from Knee, Left Updated: 09/28/24 1039 Abscess/Wound Aspirate Culture Many Methicillin Resistant Staphylococcus aureus Gram Stain Many neutrophils Many Gram positive cocci Susceptibility Methicillin Resistant Staphylococcus aureus VITEK 2 METHOD Ciprofloxacin Susceptible Clindamycin Resistant Gentamicin Susceptible [1] Linezolid Susceptible Oxacillin Resistant Tetracycline Susceptible [2] Trimethoprim/Sulfa Susceptible Vancomycin Susceptible [1] Gentamicin is not appropriate for monotherapy for gram-positive infections. [2] Based on tetracycline susceptibility, this organism is considered susceptible to doxycycline. Abscess/Wound Aspirate Culture, Aerobic Only [[id number]] (Abnormal) (Susceptibility) Collected: 09/26/24 1650 Lab Status: Preliminary result Specimen: Abscess from Groin, Left Updated: 09/28/24 1037 Abscess/Wound Aspirate Culture Many Methicillin Resistant Staphylococcus aureus Gram Stain Many neutrophils Many Gram positive cocci Susceptibility Methicillin Resistant Staphylococcus aureus VITEK 2 METHOD Ciprofloxacin Susceptible Clindamycin Resistant Gentamicin Susceptible [1] Linezolid Susceptible Oxacillin Resistant Tetracycline Susceptible [2] Trimethoprim/Sulfa Susceptible Vancomycin Susceptible [1] Gentamicin is not appropriate for monotherapy for gram-positive infections. [2] Based on tetracycline susceptibility, this organism is considered susceptible to doxycycline. Fungus culture [[id number]] Collected: 09/27/241653 Lab Status: Preliminary result Specimen: Tissue from Thigh, Left Updated: 09/28/24 0748 Fungus Culture No fungus isolated to date MRSA PCR Screen [[id number]] (Abnormal) Collected: 09/27/24 0751 Lab Status: Final result Specimen: Swab from Nares Updated: 09/27/24 1156 MRSA PCR Detected Narrative: This test was performed using the Xpert MRSA NxG test kit and is run on the [employer] Dx System. This test is cleared by the U.S. Food and Drug Administration for clinical use and its performance characteristics have been verified by the [facility] at [facility]. Anaerobic Culture [[id number]] Collected: 09/26/241649 Lab Status: Preliminary result Specimen: Abscess from Groin, Left Updated: 09/27/24 1142 Anaerobic Culture No anaerobic organisms isolated to date Anaerobic Culture [[id number]] Collected: 09/26/241701 Lab Status: Preliminary result Specimen: Abscess from Knee, Left Updated: 09/27/24 1142 Anaerobic Culture No anaerobic organisms isolated to date Fungus culture [[id number]] Collected: 09/26/241649 Lab Status: Preliminary result Specimen: Abscess from Groin, Left Updated: 09/27/24 0727 Fungus Culture No fungus isolated to date Fungus culture [[id number]] Collected: 09/26/241701 Lab Status: Preliminary result Specimen: Abscess from Knee, Left Updated: 09/27/24 0727 Fungus Culture No fungus isolated to date New Studies Results for orders placed or performed during the hospital encounter of 09/26/[address] CT Lower Extremity (Exam End: 09/26/2024 1:50 PM) Result Value WORKSTATION ID [id number] Impression 1. There is a left femoral bypass graft extending from the left common femoral artery below the inferior margin of the study. There is a large abscess surrounding the bypass graft and extending from the left common femoral artery along the entire visualized course of the bypass graft and extending below the inferior margin of the study. Findings are consistent with graft infection, but the inferior extent of infection is unknown. 2. Phase of contrast is not optimized to evaluate the patency of the left femoral bypass graft. There appears to be at least some degree of thrombus formation within the graft at multiple sites. Since the bypass graft also extends below the inferior margin of the study, the graft is incompletely evaluated. 3. Multiple enlarged left inguinal and [...] questions please contact the health director of health care marketing that requested your imaging first. Lower Extremity w Contrast Left (Exam End: 09/27/2024 9:16 AM) Result Value WORKSTATION ID [id number] Impression IMPRESSION: 1. Interval explant of LEFT femoral bypass graft with 2 open wounds and partial drainage of perigraft abscess. 2. A residual [...] questions please contact the health director of health care marketing that requested your imaging first. 09/28 ABIs Interpretation: RIGHT: No significant lower extremity arterial occlusive disease identified at rest. Normal ankle/brachial pressure ratios and ankle Doppler waveforms. No significant change compared to previous exam on 07/17/2024. LEFT: Severe lower extremity arterial occlusive disease. Toe waveform is absent. Significant deterioration compared to previous exam on 07/17/2024. Previous ABIs with change from previous value: Date RIGHT DP RIGHT PT RT GR TOE RT Sec TOE 1.10 1.17 0.88 ---- 1.10( .00) 1.11(-.06) 0.93(+.05) ---- Current 1.07(-.03) 1.16(+.05) 0.77(-.16) ---- Date LEFT DP LEFT PT LT GR TOE LT Sec TOE ---- ---- 0.24 ---- 0.55 0.57 0.38(+.14) ---- Current 0.30(-.25) 0.30(-.27) 0.00(-.38) ---- Assessment & Plan Geovanna Dixon Jr. is a 49 y.o. male with a history of HTN, HLD, NSTEMI, CAD s/p CABG (12/2011), DM,obesity, PAD s/p L iliofem endart and L fem-BK pop bypass and L 2nd toe amputation who was transferred from [facility] given concern for infected left fem-BK popliteal PTFE bypass. He is now s/p an explantof an infected left femoral-below knee popliteal artery bypass graft as well as a return to the OR f or an I&D. Significant purulence under pressure was seen intraoperatively, surrounding the entire bypass at proximal and distal anastomoses as well as the tunnel. There were previously retained grafts left at proximal and distal anastomoses and a Yung drain placed from left groin to left thigh. The retained grafts have since been removed, with Yung drains in the L groin and thigh and also with two wound vacs one in the left groin and one in the left calf incision. Plan to RTOR on Wednesday for further exploration, possible closure. In the meantime the plan is to continue to closely monitor his blood cultures, continuous recommendations from ID greatly appreciated. Will also plan to control his pain and monitor his overall clinical status over the weekend. Patient on list for possible OR today for wash out. Pain is controlled at this time. Hgb 8.5 from 10.4 today no signs of bleeding continue to monitor. Of note, all of his graft is out. ID will be notified to make aware. Per attending, daily BC until cleared. Recommend addition of protein shakes to his diet to optimize his protein intake and overall nutritional status to promote wound healing. 09/30/24 : plan to replete lytes PRN, treat pain with current regimen, optimize nutrition, q48hr blood cultures until clear. Transition to step-down status - ABIs- done - CTA with lower extremity- done - Bedrest - q48 hour BC until clear - Maintain mendez while bed rest - +MRSA from wound, ID recs Vancomycin (09/26-); dc'ed zosyn (09/26-09/28) - Continue aspirin and statin - Tylenol, PRN oxy for pain control - ID consulted, appreciate recs - DM management consulted, appreciate recs - Daily labs, replete PRN goal K 4.0; Mg 1.0 - SQH ppx - ISS Karolyn Hudson MD Vascular Surgery 09/30/24 [id number] * Angel Gonsalez MD - 09/30/2024 10:06 AM EST Critical Care Attending Daily Progress Note This patient was seen and examined on daily ICU rounds. Presentation: 49 y.o. male with PMH of CAD c/b NSTEMI in 2011 now s/p 2v CABG and PCI x2, HFrEF (LVEF 47% in May2024), HTN, HLD, insulin dependent diabetes, narcolepsy, substance use (cocaine), and PAD c/b critical limb ischemia of his left-lower extremity now s/p LEFT femoral to below-knee popliteal artery bypass on 08/01/24. Admitted 09/26/24 to SICU for treatment and evaluation of sepsis 2/2 vascular graftassociated infection. Procedures: 09/26/2024: explant of infected left femoral-below knee popliteal artery bypass graft 09/27/2024: evacuation of abscess in left posterior thigh, irrigation and debridement L groin and calf incision sites 09/28/24: debridemtn removal of remaining PTFE, vein patch to FA, sarotieus flap and VAC palcement 09/29/24: washout and wound VAC 24 Hour Events: No events Assessment, Management, and Decision Making Pt seen and examined with the critical care team with my full assessment and plan by systems as follows: Neuro: Tylenol and oxycodone prn Home medications resumed CV: goal MAP > 65 mmHg Holding home BP meds TTE 09/28 EF 45-50%, no vegetations, no change from 05/29/24 PULM: on RA GI: reg carb control diet NBOs : Na 137 Continue NS Replete K as needed HEME: Goal hgb > 7 Holding home xarelto ID: wbc 12 down from 17.1 09/26 OSH BCX: MRSA, 09/28 and 09/29 NGTD 09/26 Wound Cx: GPC Continue on vanc day 5 Appreciate ID consult ENDO: Hgb A1c 9.7 down from 12.6 05/29/24 Appreciate Diabetes consult: plan for 25 lantus BID and meal associated T/L/D: PIV MSK: PT/OT Prophylaxis: DVT SCDs and SQH, GI PPI (home medication) DISPO: ok for floor status Physical Exam Last value Range last 24hrs Temperature Temp: 36.9 ??C (98.4 ??F) Temp: [36.3 ??C (97.3 ??F)-36.9 ??C (98.4 ??F)] Heart Rate Heart Rate: 84 Heart Rate: [76-89] Blood Pressure BP: 157/71 BP: (157)/(71) Respiratory Rate Resp: 16 Resp: [-] SpO2 SpO2: 97 % SpO2: [92 %-97 %] BMI Body mass index is 32.73 kg/m??. 09/29 0701 - 09/30 0700 In: 2312 [P.O.:400; I.V.:1004] Out: 2166 [Urine:2075; Drains:80] General: awake and alert Lungs: clear Heart: reg Abdomen: soft Extremities: LLE with VAC Neuro: no deficits Recent Labs 09/29/24 2352 09/28/24 23509/27/24 2358 09/27/24 1755 WBC 9.54* 12.76* 17.15* 19.38* HGB 8.7* 8.5* 10.4* 11.0* HCT 25.8* 24.7* 30.5* 31.6* PLATELET 411* 331 316 322 Recent Labs 09/30/24 0627 09/29/24 2352 09/28/24 2351 09/28/24 1045 09/28/24 0455 09/27/24 2358 NA -- 138 137 -- -- 131* K 3.9 3.4* 3.2* 4.6 2.9* 3.2* CL -- 103 105 -- -- 95* CO2 -- 21* -- -- 23 BUN -- 9* 6* -- -- 5* CREATININE -- 0.48* 0.52* -- -- 0.48* GLUCOSE -- 133 204* -- -- 246* CALCIUM -- 8.1* 6.7* -- -- 8.1* MAGNESIUM -- 0.85 0.72 -- -- 0.77 Recent Labs 09/28/24 1516 PHART 7.42 PO2ART 103 [id number] 39 LACTATEART 1.1 BEART 0.2 Is this patient critically ill? Is there a high potential of sudden, clinically significant, or life threatening deterioration? No Is there a need for direct personal assessment and management to treat/prevent multiple vital organfailure/deterioration? No D. Alex Gonsalez MD * Mariya Shi RN - 09/29/2024 10:31 PM EST OUTCOME EVALUATION NOTE: OUTCOME SUMMARY: A&O x4 and follows command in all extremities. Pt reported pain in LLE- PRN meds given with good effect- See MAR. Q1 neurovascular completed- LLE DP/ PT dopplerable. HR ranged from 75-100 NSR. MAP > 65 maintained without intervention. Resp gautam pt on RA. Pt had adequate UO throughout the shift, see flowsheets. No BM. Pt is on carb controlled diet. potassium replaced per protocol. BC collected PLAN MOVING FORWARD: Q2 VS and I/0S Q4 BS Q1 neurovascular checks OR Wednesday? INDIVIDUALIZED FALL PREVENTION INTERVENTIONS: Patient-specific fall risk factors per assessment: [current deficits]: ICU environment, lines and drains, generalized weakness Assistance [level of assistance required for transfers and ambulation]: 2-assist Supervision [direct monitoring required during toileting and ADLs]: hands on Surveillance [continuous indirect monitoring]: ICU monitoring, tele, spo2, hourly rounding Patient-specific fall prevention interventions for sensory deficits provided, if applicable: CARE PLAN GOAL OUTCOME EVALUATION: Problem: Adult [...] Outcome: Ongoing (Interventions Implemented as Appropriate) * Toya Berry MD - 09/29/2024 8:08 PM EST Geovanna Dixon Jr. is a 49 y.o. male status post repeat LLE debridement. S: No nausea/vomiting, chest pain, SOB, pain well controlled . O: Temp: [36.3 ??C (97.3 ??F)-36.9 ??C (98.4 ??F)] Heart Rate: [76-89] Resp: [12-20] BP: -- SpO2: [92 %-97 %] Heart Rate from SpO2: [76 bpm-89 bpm] I/O last 3 completed shifts: In: 4068 [P.O.:350; I.V.:2575; IV Piggyback:1143] Out: 4701 [Urine:4375; Drains:65; Blood:161] I/O this shift: In: 100 [P.O.:100] Out: 75 [Urine:75] UOP since OR: 150 cc Physical Exam General: NAD, resting comfortably HEENT: PERRL, anicteric sclerae CVS: Regular rate Pulm: Breathing comfortably on RA Abd: soft, non tender, non distended Ext: RLE: No edema. Skin warm and pink. No tissue loss. Brisk capillary refill LLE: No edema. Skin warm and pink. Brisk capillary refill. Gauze dressing c/d/i. Left groin wound vac holding suction. Left groin RAY drain holding suction with serosanguinous output. Neuro: nonfocal, moving all extremities. Sensation intact in extremities bilaterally symmetric. Motor function intact in BLE, although left knee and hip motion limited by pain. Vascular Exam: R L DP Strong Doppler Strong Doppler PT Strong Doppler Strong Doppler AP: Geovanna Dixon Jr. is a 49 y.o. male status post repeat LLE washout. Wound vac remains intact onthe L groin incision. He is doing well post-operatively, appreciate care per ICU team. - Pain well controlled - Bedrest overnight, mendez to remain in place while bedrest - Hemodynamically stable - Diet: Resume regular diet - UOP adequate - Anticoagulation: subq heparin - Antiplatelet: ASA 81 Toya Berry MD Vascular Surgery 09/29/24 * Thuy Jiang APRN - 09/29/2024 2:29 PM EST Images from the original note were not included. .Follow Up Diabetes Consult Patient Interview Geovanna still in ICU and going to OR today. Blood sugars and care reviewed. Has had much better response to split insulin plan in the past 24 hours. Objective Temp: [36.4 ??C (97.5 ??F)-36.9 ??C (98.4 ??F)] Heart Rate: [76-104] Resp: [16-25] BP: -- SpO2: [92 %-97 %] Heart Rate from SpO2: [74 bpm-101 bpm] Current Regimen Lantus:25 units BID, ADJUSTED Lispro 1:5 insulin to carbohydrate ratio - please adjust Lispro for correction q 4 hours based on a correction factor of 20 Diet CC Monitoring: Q4 Recent Glucose Levels Recent Labs 09/29/24 1149 09/29/24 0753 09/29/24 0345 09/28/24 2345 09/28/24 2200 11/21195009/28/24 1642 09/28/24 0757 09/28/24 0354 09/27/24 2346 09/27/24195009/27/24 1748 POCGLU 135 202* 184 238* 287* 243* 203* 192 229* 205* 142 171 ASSESSMENT Geovanna Dixon Jr. is a 49 y.o. male with PMH of CAD c/b NSTEMI in 2011 now s/p 2v CABG and PCI x2, HFrEF (LVEF 47% in May 2024), HTN, HLD, insulin dependent diabetes, narcolepsy, substance use (cocaine), and PAD c/b critical limb ischemia of his left-lower extremity now s/p LEFT femoral to below-knee popliteal artery bypass on 08/01/[address] Dickson who now presents to the surgical ICU for treatment and evaluation of sepsis 2/2 vascular graft associated infection. A1C pending, this summer elevated at 12.6% suggesting an average glucose of 315. Since his discharge he has been using basal bolusinsulin and blood sugars were mostly in 100s until more recently when they elevated to 200s. Currently has variability of blood glucose levels while hospitalized requiring adjustment of insulin regimen and DM medications. PLAN Lantus:25 units BID, ADJUSTED Lispro 1:5 insulin to carbohydrate ratio - please adjust Lispro for correction q 4 hours based on a correction factor of 20 Diet CC Monitoring: Q4 30 minutes of this 35 minute visit was spent with the patient in counseling on diabetes and treatment plan, reviewing all glucose and insulin data as well as relevant laboratory results with the patient, and coordination of care on the inpatient unit including nursing and primary team. * Angel Gonsalez MD - 09/29/2024 12:34 PM EST Critical Care Attending Daily Progress Note This patient was seen and examined on daily ICU rounds. Presentation: 49 y.o. male with PMH of CAD c/b NSTEMI in 2011 now s/p 2v CABG and PCI x2, HFrEF (LVEF 47% in May2024), HTN, HLD, insulin dependent diabetes, narcolepsy, substance use (cocaine), and PAD c/b critical limb ischemia of his left-lower extremity now s/p LEFT femoral to below-knee popliteal artery bypass on 08/01/24. Admitted 09/26/24 to SICU for treatment and evaluation of sepsis 2/2 vascular graftassociated infection. Procedures: 09/26/2024: explant of infected left femoral-below knee popliteal artery bypass graft 09/27/2024: evacuation of abscess in left posterior thigh, irrigation and debridement L groin and calf incision sites 09/28/24: debridemtn removal of remaining PTFE, vein patch to FA, sarotieus flap and VAC palcement 24 Hour Events: No events TTE A line removed Assessment, Management, and Decision Making Pt seen and examined with the critical care team with my full assessment and plan by systems as follows: Neuro: Tylenol and oxycodone prn Home medications resumed CV: goal MAP > 65 mmHg Holding home BP meds ABIs this am Return to OR today TTE 09/28 EF 45-50%, no vegetations, no change from 05/29/24 Q1h neurovascular checks PULM: on RA GI: NPO for OR today : Na 137 Continue NS Replete K as needed HEME: Goal hgb > 7 Holding home xarelto ID: wbc 12 down from 17.1 09/26 OSH BCX: MRSA, plan for repeat BCx 09/28 09/26 Wound Cx: GPC Continue on vanc day 4, stopped zosyn Appreciate ID consult ENDO: Hgb A1c 9.7 down from 12.6 05/29/24 Appreciate Diabetes consult: plan for 25 lantus BID and meal associated T/L/D: PIV MSK: PT/OT Prophylaxis: DVT SCDs and SQH, GI PPI (home medication) DISPO: continue ICU status for close monitoring given concern for left groin vasc bleeding= complication Physical Exam Last value Range last 24hrs Temperature Temp: 36.7 ??C (98.1 ??F) Temp: [36.4 ??C (97.5 ??F)-36.9 ??C (98.4 ??F)] Heart Rate Heart Rate: 76 Heart Rate: [76-104] Blood Pressure BP: 130/81 BP: -- Respiratory Rate Resp: 16 Resp: [16-25] SpO2 SpO2: 96 % SpO2: [92 %-97 %] BMI Body mass index is 32.45 kg/m??. 09/28 701 - 09/29 07 In: 2676 [P.O.:350; I.V.:2090] Out: 3410 [Urine:3125; Drains:35] General: awake and alert Lungs: clear Heart: reg Abdomen: soft Extremities: LLE with KIM wrap, edema but minimal erythema Neuro: no deficits Recent Labs 09/28/24 2351 09/27/24 2358 09/27/24 1755 09/27/24 0001 09/26/24 1439 WBC 12.76* 17.15* 19.38* 23.20* 22.76* HGB 8.5* 10.4* 11.0* 11.7* 12.3* HCT 24.7* 30.5* 31.6* 33.6* 35.0* PLATELET 331 316 322 296 277 PT -- -- -- -- 21.6* INR -- -- -- -- 1.9 PTT -- -- -- -- 36 Recent Labs 09/28/24 2351 09/28/24 1045 09/28/24 0455 09/27/24 2358 09/27/24 0751 09/27/24 0505 09/27/24 0001 09/26/24 1439 NA 137 -- -- 131* -- -- 128* 127* K 3.2* 4.6 2.9* 3.2* 3.5 < > 3.3* 3.4* CL 105 -- -- 95* -- -- 92* 89* CO2 21* -- -- 23 -- -- 23 25 BUN 6* -- -- 5* -- -- 7* 9* CREATININE 0.52* -- -- 0.48* -- -- 0.45* 0.55* GLUCOSE 204* -- -- 246* -- -- 261* 254* CALCIUM 6.7* -- -- 8.1* -- -- 8.5 8.9 MAGNESIUM 0.72 -- -- 0.77 -- -- 0.68* 0.65* PHOS -- -- -- -- -- -- -- 3.2 < > = values in this interval not displayed. Recent Labs 09/28/24 1516 09/26/24 1643 PHART 7.42 7.38 PO2ART 103 96 [id number] 39 41 LACTATEART 1.1 1.7 BEART 0.2 -1.4 Is this patient critically ill? Is there a high potential of sudden, clinically significant, or life threatening deterioration? No Is there a need for direct personal assessment and management to treat/prevent multiple vital organfailure/deterioration? No D. Alex Gonsalez MD * Stacey Thomas MD - 09/29/2024 9:11 AM EST INFECTIOUS DISEASE FOLLOW-UP NOTE Active ID Issue(s): Vascular graft infection, fully explanted 09/28/2024 MRSA bacteremia Antimicrobial Therapy: Vancomycin Intercurrent Events/Subjective Data: Blood cultures from 09/28/2024 NGTD ROTR yesterday where he underwent excisional debridement, washout of L groin, sartorius flap, L great saphenous vein harvest, resection of prior femoral patch and PTFE graft hoods Physical Exam: Last value Range last 24 hrs Temperature Temp: 36.4 ??C (97.5 ??F) Temp: [36.4 ??C (97.5 ??F)-36.9 ??C (98.4 ??F)] Heart Rate Heart Rate: 84 Heart Rate: [76-104] Blood Pressure BP: 130/81 BP: (130)/(81) Respiratory Rate Resp: 23 Resp: [15-25] SpO2 SpO2: 94 % SpO2: [92 %-99 %] General: No acute distress Head: NC AT EENT: EOMI MMM Neck: trachea midline Cardiovascular: RRR Pulmonary: Nonlabored respirations Abdomen: Nontender nondistended Ext: Upper extremity lower extremity warm well-perfused. Left lower extremity is wrapped. Skin: No obvious rashes. No stigmata of endocarditis Neuro: No facial droop or slurring of speech Laboratory: Lab Results Component Value Date WBC 12.76 (H) 09/28/2024 HGB 8.5 (L) 09/28/2024 HCT 24.7 (L) 09/28/2024 PLATELET 331 09/28/2024 Lab Results Component Value Date CREATININE 0.52 (L) 09/28/2024 CREATININE 0.52 (L) 06/02/2024 Lab Results Component Value Date ALT 14 09/26/2024 AST 16 09/26/2024 ALKPHOS 160 (H) 09/26/2024 BILITOT 0.4 09/26/2024 Micro: - Blood Culture: 09/26/2024 MRSA 09/27/2024 GPCs Scheduled Meds: polyethylene glycoL (MIRALAX) oral powder 17 g Oral Daily insulin glargine (Lantus;Semglee) (100 unit/mL) subcutaneous injection 25 Units Subcutaneous BID vancomycin 1.5 g Intravenous Q8H insulin lispro 1-6 Units Subcutaneous Q4H JOSE insulin lispro 0-11 Units Subcutaneous TID WC acetaminophen 975 mg Oral Q6H JOSE atorvastatin 80 mg Oral QPM aspirin EC 81 mg Oral Daily methylphenidate 20 mg Oral TID pantoprazole EC 40 mg Oral Daily senna-docusate 2 tablet Oral BID venlafaxine XR 225 mg Oral Daily heparin (porcine) 5,000 Units Subcutaneous Q8H JOSE lidocaine 1 patch Transdermal Q24H Radiology/Studies/Procedures: Reviewed, echocardiogram without obvious vegetation; However with segmental wall motion abnormalities Impression: Geovanna Dixon Jr. is a 49 y.o.male history of coronary artery disease status post coronary artery bypass grafting, hypertension, dyslipidemia, diabetes mellitus, and peripheral arterial disease. 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 He is currently receiving vancomycin therapy. Blood cultures from September 28, 2024 have shown no growth to date, which is reassuring. HELEN will be deferred for now, as a minimum 6-week course of antimicrobial therapy is anticipated. The patient has demonstrated clinical improvement on vancomycin monotherapy, and in the event of clinical decompensation or blood culture + from 09/28/2024, we would consider transitioning to a combination regimen with daptomycin and ceftaroline.At this time, he may continue with vancomycin, with pharmacy-assisted dosing. He is scheduled to return to the operating room for continued surgical washout as part of his ongoing management. Recommendations: - Continue with vancomycin, pharmacy assisted dosing - Follow up blood cultures - will finalize antibiotic plan once bacteremia clears Recommendations discussed with primary treating team. ID consult service will continue to follow. Please do not hesitate to page with any questions or concerns. Stacey Thomas MD 09/29/2024 9:11 AM * Nunez Renea J, RD - 09/29/2024 7:07 AM EST Nutrition NPO Note Geovanna Dixon Jr. is a 49 y.o. male with pmhx of CAD c/b NSTEMI in 2011 now s/p 2v CABG and PCI x2,HFrEF HTN, HLD, insulin dependent diabetes, narcolepsy, substance use (cocaine), and PAD c/b critical limb ischemia of his left-lower extremity now s/p LEFT femoral to below-knee popliteal artery bypass on 08/01/[address] Dickson who now presents to the surgical ICU for treatment and evaluation of sepsis 2/2 vascular graft associated infection. Patient has been on NPO or on a clear liquid diet only for 4 days, increasing risk for malnutrition. Patient has ordered 1 meal since admit, 100% po intake per flowsheets Limit NPO time as able If clinically unable to advance oral diet consider consult to Nutrition Services to evaluate for potential nutrition support. Visualized patient for overt cachectic appearance: no Active Orders Diet NPO diet (Give Meds) Frequency: Effective Midnight Number of Occurrences: Until Specified Admit Weight: 103.8 kg Estimated body mass index is 32.45 kg/m?? as calculated from the following: Height as of this encounter: 179.1 cm (5' 10.51). Weight as of this encounter: 104.1 kg (229 lb 8 oz). Wt Readings from Last 5 Encounters: 09/29/24 104.1 kg (229 lb 8 oz) 09/18/24 104.8 kg (231 lb) 08/28/24 102.1 kg (225 lb) 08/17/24 99.8 kg (220 lb) 08/02/24 105.5 kg (232 lb 9.4 oz) Patient Vitals for the past 168 hrs: Weight 09/29/24 0000 104.1 kg (229 lb 8 oz) 09/28/24 0000 108.6 kg (239 lb 6.7 oz) 09/27/24 0600 101.8 kg (224 lb 6.9 oz) 09/26/24 1436 103.8 kg (228 lb 13.4 oz) Weight loss: none Thank you, Renea Nunez, MS, RD, LD, [facility] Clinical Nutrition * Mariya Shi RN - 09/28/2024 11:01 PM EST OUTCOME EVALUATION NOTE: OUTCOME SUMMARY: A&O x4 and follows command in all extremities. Pain in LLE managed with scheduled meds- see JAN. Q1 neurovascular completed- LLE DP/ PT dopplerable. HR ranged from 90-110 NSR-ST. MAP > 65 maintained without intervention, SBP goal < 160- Labetalol given x1. Resp gautam pt on RA. Pt had adequate UO throughout the shift, see flowsheets. No BM. Pt is on carb controlled diet- NPO at midnight for OR 09/29. Mg, calcium, and potassium replaced per protocol PLAN MOVING FORWARD: Q2 VS and I/0S Q4 BS Q1 neurovascular checks OR 09/29 INDIVIDUALIZED FALL PREVENTION INTERVENTIONS: Patient-specific fall risk factors per assessment: [current deficits]: ICU environment, lines and drains, generalized weakness Assistance [level of assistance required for transfers and ambulation]: 2-assist Supervision [direct monitoring required during toileting and ADLs]: hands on Surveillance [continuous indirect monitoring]: ICU monitoring, tele, spo2, hourly rounding Patient-specific fall prevention interventions for sensory deficits provided, if applicable: CARE PLAN GOAL OUTCOME EVALUATION: Problem: Adult [...] Outcome: Ongoing (Interventions Implemented as Appropriate) * Padma Ramirez MD - 09/28/2024 8:26 PM EST Surgery Post Op Check Geovanna Dixon Jr. is a 49 y.o. male status post : LEFT great saphenous vein harvest Vein patch angioplasty of LEFT common femoral artery and below-knee popliteal artery Sartorius flap placement over LEFT femoral artery Excisional debridement, washout, and LEFT groin wound VAC placement S: No nausea/vomiting, chest pain, SOB, pain well controlled . O: Temp: [36.8 ??C (98.2 ??F)-36.9 ??C (98.4 ??F)] Heart Rate: [92-101] Resp: [17-23] BP: -- SpO2: [92 %-97 %] Heart Rate from SpO2: [92 bpm-101 bpm] I/O last 3 completed shifts: In: 5030 [P.O.:100; I.V.:4595; IV Piggyback:335] Out: 3960 [Urine:3750; Drains:10; Blood:200] I/O this shift: In: 200 [P.O.:200] Out: 150 [Urine:150] UOP since OR: 150 cc Physical Exam General: NAD, resting comfortably HEENT: PERRL, anicteric sclerae CVS: Regular rate Pulm: Breathing comfortably on RA Abd: soft, non tender, non distended Ext: RLE: No edema. Skin warm and pink. No tissue loss. Brisk capillary refill LLE: No edema. Skin warm and pink. Brisk capillary refill. Gauze dressing c/d/i. Left groin wound vac holding suction. Left groin RAY drain holding suction with serosanguinous output. Neuro: nonfocal, moving all extremities. Sensation intact in extremities bilaterally symmetric. Motor function intact in BLE, although left knee and hip motion limited by pain. Vascular Exam: R L DP 2/2 absent PT 2/2 2/2 AP: Geovanna Dixon Jr. is a 49 y.o. male status post LEFT great saphenous vein harvest, Vein patch angioplasty of LEFT common femoral artery and below-knee popliteal artery, Sartorius flap placement over LEFT femoral artery, Excisional debridement, washout, and LEFT groin wound VAC placement. - Pain well controlled - Hemodynamically stable - Diet: Resume regular diet, NPO at midnight pending OR tomorrow - Mendez to remain in place - UOP adequate - Anticoagulation: subq heparin - Antiplatelet: ASA 81 Padma Ramirez MD Vascular Surgery 09/28/24 * Fawn Cunningham, MANAGEMENT LEAD - 09/28/2024 12:02 PM EST Follow Up Diabetes Consult Patient Interview Blood glucose values and insulin use reviewed. Reviewed BGs and insulin recs with primary team michelle Wasserman. Pt required 101 units of insulin yesterday and fasting BGs are elevated. Home long acting dose is 50 units. With elevated fasting BGs suggest we dose 25 units glargine now and 25 units for this evening. PT back in OR today. Glargine order adjusted. Based on rule of 500, ICR should be adjusted to 1:5. Moderate correction Q 4 hours remains appropriate. Objective Temp: [36.5 ??C (97.7 ??F)-37.4 ??C (99.3 ??F)] Heart Rate: [93-117] Resp: [13-27] BP: (122-151)/(75-82) SpO2: [88 %-99 %] Heart Rate from SpO2: [92 bpm-116 bpm] Current Regimen from previous note 1. Lantus 35 units qd 2. Meal-associated Lispro 1unit: 7 gm carb ratio for each meal 3. Correction Lispro, ISF 20 4. Diet: NPO 5. Monitoring: q4 Recent Glucose Levels Recent Labs 09/28/24 0757 09/28/24 0354 09/27/24 2346 09/27/24 1951 09/27/24 1748 09/27/24 1523 09/27/24 1129 09/27/24 0751 09/27/24 0352 09/27/24 0159 09/26/24 2359 09/26/24 1934 POCGLU 192 229* 205* 142 171 178 181 194 199 219* 251* 204* ASSESSMENT Geovanna Dixon Jr. is a 49 y.o. male with PMH of CAD c/b NSTEMI in 2011 now s/p 2v CABG and PCI x2, HFrEF (LVEF 47% in May 2024), HTN, HLD, insulin dependent diabetes, narcolepsy, substance use (cocaine), and PAD c/b critical limb ischemia of his left-lower extremity now s/p LEFT femoral to below-knee popliteal artery bypass on 08/01/[address] Dickson who now presents to the surgical ICU for treatment and evaluation of sepsis 2/2 vascular graft associated infection. A1C pending, this summer elevated at 12.6% suggesting an average glucose of 315. Since his discharge he has been using basal bolusinsulin and blood sugars were mostly in 100s until more recently when they elevated to 200s. Currently has variability of blood glucose levels while hospitalized requiring adjustment of insulin regimen and DM medications. Reviewed BGs and insulin recs with primary team this morning for Geovanna. Pt required 101 units of insulin yesterday and fasting BGs are elevated. Home long acting dose is 50 units. With elevated fasting BGs suggest we dose 25 units glargine now and 25 units for this evening. Pt back in OR today. Glargine order adjusted. Based on rule of 500, ICR should be adjusted to 1:5. Moderate correction Q 4 hours remains appropriate. PLAN Lantus:25 units BID, ADJUSTED Lispro 1:5 insulin to carbohydrate ratio - please adjust Lispro for correction q 4 hours based on a correction factor of 20 Diet CC Monitoring: Q4 Fawn Cunningham APRN [facility] [place] Endocrinology Diabetes Management Pager [phone] Weekends please page [phone] 35 minutes were spent over the course of the day with this patient encounter including time spent in chart review and relevant lab result review, assessment of and counseling with the patient on diabetes and treatment plan, reviewing all glucose and insulin data, and coordination with the consulting service. * Angel Gonsalez MD - 09/28/2024 9:15 AM EST Critical Care Attending Daily Progress Note This patient was seen and examined on daily ICU rounds. Presentation: 49 y.o. male with PMH of CAD c/b NSTEMI in 2011 now s/p 2v CABG and PCI x2, HFrEF (LVEF 47% in May2024), HTN, HLD, insulin dependent diabetes, narcolepsy, substance use (cocaine), and PAD c/b critical limb ischemia of his left-lower extremity now s/p LEFT femoral to below-knee popliteal artery bypass on 08/01/24. Admitted 09/26/24 to SICU for treatment and evaluation of sepsis 2/2 vascular graftassociated infection. Procedures: 09/26/2024: explant of infected left femoral-below knee popliteal artery bypass graft 09/27/2024: evacuation of abscess in left posterior thigh, irrigation and debridement L groin and calf incision sites 24 Hour Events: No events TTE A line removed Assessment, Management, and Decision Making Pt seen and examined with the critical care team with my full assessment and plan by systems as follows: Neuro: Tylenol and oxycodone prn Home medications resumed CV: goal MAP > 65 mmHg Holding home BP meds ABIs this am Return to OR today TTE 09/28 EF 45-50%, no vegetations, no change from 05/29/24 Q1h neurovascular checks PULM: on RA GI: NPO for OR today : Na 131 Continue NS Replete K HEME: Goal hgb > 7 Holding home xarelto ID: wbc 17.1 down from 09/26 OSH BCX: MRSA, plan for repeat BCx 09/28 09/26 Wound Cx: GPC Continue on vanc day 3, stop zosyn Appreciate ID consult ENDO: 25 glargine this am (home regimen 50 glargine, plus meal associated lispro) Recheck Hgb A1c, most recent 12.6 05/29/24 Appreciate Diabetes consult: plan for 25 lantus BID and meal associated T/L/D: PIV MSK: PT/OT Prophylaxis: DVT SCDs and SQH, GI PPI (home medication) DISPO: OK for transfer to ISCU/floor status once no longer requiring q1h vasc checks Physical Exam Last value Range last 24hrs Temperature Temp: 36.5 ??C (97.7 ??F) Temp: [36.5 ??C (97.7 ??F)-37.4 ??C (99.3 ??F)] Heart Rate Heart Rate: 93 Heart Rate: [93-117] Blood Pressure BP: 122/80 BP: (122-151)/(75-82) Respiratory Rate Resp: 13 Resp: [13-27] SpO2 SpO2: 96 % SpO2: [88 %-98 %] BMI Body mass index is 33.86 kg/m??. 09/27 0701 - 09/28 0700 In: 3332 [P.O.:100; I.V.:3132] Out: 2049 [Urine:1999] General: awake and alert Lungs: clear Heart: reg Abdomen: soft Extremities: LLE with KIM wrap, edema but minimal erythema Neuro: no deficits Recent Labs 09/27/24 2358 09/27/24 1755 09/27/24 0001 09/26/24 1439 WBC 17.15* 19.38* 23.20* 22.76* HGB 10.4* 11.0* 11.7* 12.3* HCT 30.5* 31.6* 33.6* 35.0* PLATELET 316 322 296 277 PT -- -- -- 21.6* INR -- -- -- 1.9 PTT -- -- -- 36 Recent Labs 09/28/24 0455 09/27/24 2358 09/27/24 0751 09/27/24 0505 09/27/24 0001 09/26/24 1439 NA -- 131* -- -- 128* 127* K 2.9* 3.2* 3.5 3.4* 3.3* 3.4* CL -- 95* -- -- 92* 89* CO2 -- 23 -- -- 23 25 BUN -- 5* -- -- 7* 9* CREATININE -- 0.48* -- -- 0.45* 0.55* GLUCOSE -- 246* -- -- 261* 254* CALCIUM -- 8.1* -- -- 8.5 8.9 MAGNESIUM -- 0.77 -- -- 0.68* 0.65* PHOS -- -- -- -- -- 3.2 Recent Labs 09/26/24 1643 PHART 7.38 PO2ART 96 [id number] 41 LACTATEART 1.7 BEART -1.4 Is this patient critically ill? Is there a high potential of sudden, clinically significant, or life threatening deterioration? No Is there a need for direct personal assessment and management to treat/prevent multiple vital organfailure/deterioration? No D. Alex Gonsalez MD * Karolyn Hudson MD - 09/28/2024 7:54 AM EST Images from the original note were not included. Vascular Surgery Progress Note Patient ID Geovanna Dixon Jr. is a 49 y.o. male with history of HTN, HLD, NSTEMI, CAD s/p CABG (12/2011), DM, obesity, PAD s/p L iliofem endart and L fem-BK pop bypass and L 2nd toe amputation who was transferred from [facility] given concern for infected left fem-BK popliteal PTFE bypass. At the OSH, he underwent CT LLE with contrast that demonstrated fluid surrounding the graft and he was initiated on vancomycinand cefepime. He was noted to have a lactate of 3.6. He stated that he noticed his left groin has some swelling and some drainage about a week ago that then extended down his leg over the course of the week. He stated that he presented to the clinic (unclear where) but was not given an antibiotic. Has continued to take aspirin as well as Xarelto for his bypass and stopped smoking 1 week ago. He presented to [facility] on 09/26 and went to the OR for an urgent washout and explant of the graft, with plans for serial return to the OR as indicated for definitive management. Prior vascular history 08/01/2024: Left iliofemoral endarterectomy and left femoral to below-knee popliteal artery bypass with 7mm ringed PTFE 07/19/2024: Left 2nd toe amputation Operations this hospitalization: 09/26/2024: explant of infected left femoral-below knee popliteal artery bypass graft 09/27/2024: evacuation of abscess in left posterior thigh, irrigation and debridement L groin and calf incision sites Anticoagulation: Xarelto, bypass patency Antiplatelet: Aspirin Active Hospital Problems Diagnosis Vascular graft infection, initial encounter Resolved Hospital Problems No resolved problems to display. Active Non-Hospital Problems Diagnosis 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 (SVG to PDA closed 08/2013) PAD (peripheral artery disease) Peripheral artery disease Critical limb ischemia of left lower extremity Diabetes mellitus Obesity NSTEMI (non-ST elevated myocardial infarction) HTN (hypertension) Hyperlipidemia Depression Narcolepsy Scheduled Medications: insulin glargine (Lantus;Semglee) (100 unit/mL) subcutaneous injection 25 Units Subcutaneous BID insulin lispro 1-6 Units Subcutaneous Q4H JOSE insulin lispro 0-11 Units Subcutaneous TID WC acetaminophen 975 mg Oral Q6H JOSE atorvastatin 80 mg Oral QPM aspirin EC 81 mg Oral Daily methylphenidate 20 mg Oral TID pantoprazole EC 40 mg Oral Daily rOPINIRole 0.5 mg Oral QPM senna-docusate 2 tablet Oral BID venlafaxine XR 225 mg Oral Daily vancomycin 1,250 mg Intravenous Q8H heparin (porcine) 5,000 Units Subcutaneous Q8H JOSE lidocaine 1 patch Transdermal Q24H 24 hour events/Subjective - went to OR yesterday for evacuation of L posterior thigh abscess and I&D of L groin and calf incisions - doing well post-op, some serosanguinous drainage in L groin dressings, retained clot near drain sites likely from superficial oozing, dressing changed at bedside this AM. Calf dressings left intact - NPO for repeat washout today - Pain is well controlled overall with tylenol and PRN oxy - AFVSS on RA - Reports no nausea, vomiting, chest pain or shortness of breath - LLE signals difficult to find overnight and this AM. - abscess/wound culture from 09/26 +MRSA- ID consulted, on vanc - pending pre-op ABIs Objective BMI: Weight: 108.6 kg (239 lb 6.7 oz) (09/28/24 0000) BMI (Calculated): 32.36 BMI Classification: Obese Intake/Output Summary (Last 24 hours) at 09/28/2024 0754 Last data filed at 09/28/2024 0600 Gross per 24 hour Intake 3277 ml Output 1950 ml Net 1327 ml Temp: [36.5 ??C (97.7 ??F)-37.4 ??C (99.3 ??F)] Heart Rate: [97-117] Resp: [14-27] BP: (131-151)/(75-82) SpO2: [88 %-98 %] Heart Rate from SpO2: [97 bpm-116 bpm] Physical Exam: GEN: Alert and appears stated age. Cooperative. In NAD. HEENT: Normocephalic and atraumatic. CV: Regular rate. Pulm: Breathing on room air. Abd: Soft, non-distended, non-tender to palpation. Skin: Color, texture, turgor normal. No rashes or lesions. Neuro: No gross sensory or motor abnormality. Extremities: L groin incision site with abd pad with serosanguinous drainage and retained clots, noactive bleeding, dressing replaced at bedside. Superior aspect of groin incision with yung drains, incision well-approximated with cameron, no erythema or edema. Calf incision c/d/I, left open andpacked, did not change dressing this AM. Vascular: Unable to obtain LLE DP and PT. Present DP signal on right foot. Labs Last 3 wbc, hgb, hct plt Recent Labs 09/27/24 2358 09/27/24 1755 09/27/24 0001 WBC 17.15* 19.38* 23.20* HGB 10.4* 11.0* 11.7* HCT 30.5* 31.6* 33.6* PLATELET 316 322 296 Microbiology Microbiology Results (last 7 days) Procedure Component Value - Date/Time Fungus culture [[id number]] Collected: 09/27/241653 Lab Status: Preliminary result Specimen: Tissue from Thigh, Left Updated: 09/28/24 0748 Fungus Culture No fungus isolated to date Blood culture [[id number]] (Abnormal) Collected: 09/26/24 1845 Lab Status: Preliminary result Specimen: Blood, Venous Updated: 09/28/24 0711 Blood Culture Methicillin Resistant Staphylococcus aureus Comment: isolated. Susceptibility testing in progress. Gram Stain Aerobic Bottle: Gram positive cocci in clusters AFB culture [[id number]] Collected: 09/26/24 1702 Lab Status: Preliminary result Specimen: Abscess from Knee, Left Updated: 09/27/24 2335 Acid Fast Stain No acid fast bacilli seen Tissue Culture, Aerobic Only [[id number]] Collected: 09/27/24 165 Lab Status: Preliminary result Specimen: Tissue from Thigh, Left Updated: 09/27/24 1810 Gram Stain Few Neutrophils seen No microorganisms seen Abscess/Wound Aspirate Culture, Aerobic Only [[id number]] (Abnormal) Collected: 09/26/24 170 Lab Status: Preliminary result Specimen: Abscess from Knee, Left Updated: 09/27/24 1520 Abscess/Wound Aspirate Culture Many Staphylococcus aureus Gram Stain Many neutrophils Many Gram positive cocci Abscess/Wound Aspirate Culture, Aerobic Only [[id number]] (Abnormal) Collected: 09/26/241649 Lab Status: Preliminary result Specimen: Abscess from Groin, Left Updated: 09/27/24 1519 Abscess/Wound Aspirate Culture Many Staphylococcus aureus Gram Stain Many neutrophils Many Gram positive cocci Blood culture [[id number]] (Abnormal) Collected: 09/26/24 1422 Lab Status: Preliminary result Specimen: Blood, Venous Updated: 09/27/24 1320 Blood Culture Methicillin Resistant Staphylococcus aureus Comment: detected by PCR Gram Stain Aerobic Bottle: Gram positive cocci in clusters MRSA PCR Screen [[id number]] (Abnormal) Collected: 09/27/24 0751 Lab Status: Final result Specimen: Swab from Nares Updated: 09/27/24 1156 MRSA PCR Detected Narrative: This test was performed using the Xpert MRSA NxG test kit and is run on the [employer] D[employer] System. This test is cleared by the U.S. Food and Drug Administration for clinical use and its performance characteristics have been verified by the [facility] at [facility]. Anaerobic Culture [[id number]] Collected: 09/26/241649 Lab Status: Preliminary result Specimen: Abscess from Groin, Left Updated: 09/27/24 1142 Anaerobic Culture No anaerobic organisms isolated to date Anaerobic Culture [[id number]] Collected: 09/26/241701 Lab Status: Preliminary result Specimen: Abscess from Knee, Left Updated: 09/27/24 1142 Anaerobic Culture No anaerobic organisms isolated to date Fungus culture [[id number]] Collected: 09/26/241649 Lab Status: Preliminary result Specimen: Abscess from Groin, Left Updated: 09/27/24 0727 Fungus Culture No fungus isolated to date Fungus culture [[id number]] Collected: 09/26/241701 Lab Status: Preliminary result Specimen: Abscess from Knee, Left Updated: 09/27/24 0727 Fungus Culture No fungus isolated to date New Studies Results for orders placed or performed during the hospital encounter of 09/26/[address] Read CT Lower Extremity (Exam End: 09/26/2024 1:50 PM) Result Value WORKSTATION ID [id number] Impression 1. There is a left femoral bypass graft extending from the left common femoral artery below the inferior margin of the study. There is a large abscess surrounding the bypass graft and extending from the left common femoral artery along the entire visualized course of the bypass graft and extending below the inferior margin of the study. Findings are consistent with graft infection, but the inferior extent of infection is unknown. 2. Phase of contrast is not optimized to evaluate the patency of the left femoral bypass graft. There appears to be at least some degree of thrombus formation within the graft at multiple sites. Since the bypass graft also extends below the inferior margin of the study, the graft is incompletely evaluated. 3. Multiple enlarged left inguinal and [...] questions please contact the health director of health care marketing that requested your imaging first. Lower Extremity w Contrast Left (Exam End: 09/27/2024 9:16 AM) Result Value WORKSTATION ID [id number] Impression IMPRESSION: 1. Interval explant of LEFT femoral bypass graft with 2 open wounds and partial drainage of perigraft abscess. 2. A residual [...] questions please contact the health director of health care marketing that requested your imaging first. Assessment & Plan Geovanna Dixon Jr. is a 49 y.o. male with a history of HTN, HLD, NSTEMI, CAD s/p CABG (12/2011), DM,obesity, PAD s/p L iliofem endart and L fem-BK pop bypass and L 2nd toe amputation who was transferred from [facility] given concern for infected left fem-BK popliteal PTFE bypass. He is now s/p an explantof an infected left femoral-below knee popliteal artery bypass graft as well as a return to the OR f or an I&D. Significant purulence under pressure was seen intraoperatively, surrounding the entire bypass at proximal and distal anastomoses as well as the tunnel. There are retained grafts left at proximal and distal anastomoses and a Yung drain placed from left groin to left thigh. Doppler signals in left DP and PT on first case completion, however at this point they are difficult to find. Please keep NPO for return to OR for a repeat I&D and exploration of previously infected graftsite, and please obtain ELEN study prior to patient going to the OR today. Wound culture from left groin and left calf incision sent, abscess culture from 09/26 currently positive for MRSA, will continue to follow those- recommendations from the infectious disease team greatly appreciated, and also appreciate great care by the ICU team in managing this complicated case. - NPO for OR today - ABIs to be obtained pre-op, vascular technicians aware, STAT order - CTA with lower extremity runoff pending - Bedrest - Vanc/zosyn (09/26- - Continue aspirin and statin - Tylenol, PRN oxy for pain control - ID consulted, appreciate recs - Daily labs, replete PRN - SQH ppx - ISS Karolyn Hudson MD Vascular Surgery 09/28/24 [id number] * Padma Ramirez MD - 09/27/2024 9:47 PM EST Surgery Post Op Check Geovanna Dixon Jr. is a 49 y.o. male status post Evacuation of abscess in left posterior thigh compartment via AK popliteal incision, Irrigation of left groin and calf incision sites S: No nausea/vomiting, chest pain, SOB, pain well controlled at rest but has significant pain when he moves his left leg. O: Temp: [36.6 ??C (97.9 ??F)-37.4 ??C (99.3 ??F)] Heart Rate: [100-117] Resp: [18-21] BP: -- SpO2: [92 %-98 %] Heart Rate from SpO2: [100 bpm-116 bpm] I/O last 3 completed shifts: In: 4729.6 [P.O.:960; I.V.:3419.6; IV Piggyback:350] Out: 3605 [Urine:3505; Blood:100] I/O this shift: In: 265 [I.V.:265] Out: 100 [Urine:100] UOP since OR: 900 cc Physical Exam General: NAD, resting comfortably HEENT: PERRL, anicteric sclerae CVS: Regular rate Pulm: Breathing comfortably on RA Abd: soft, non tender, non distended Ext: RLE: No edema. Skin warm and pink. No tissue loss. Brisk capillary refill LLE: No edema. Skin warm and pink. Brisk capillary refill. Leg dressed in gauze with significant strikethrough at superior portion. Superior part of dressing taken down. [address] Abd pads with serosanguinous drainage, replaced with fresh Abd pads. Rewrapped superior leg with gauze. Neuro: nonfocal, moving all extremities. Sensation intact in extremities bilaterally symmetric. Motor function intact in BLE, although left knee and hip motion limited by pain. Vascular Exam: R L DP 2/2 absent PT 2/2 absent AP: Geovanna Dixon JrFlorencio is a 49 y.o. male status post Evacuation of abscess in left posterior thigh compartment via AK popliteal incision, Irrigation of left groin and calf incision sites. Currently instable condition and recovering well. - Pain well controlled - Hemodynamically stable - Diet: Resume regular diet, NPO at midnight pending OR tomorrow - Mendez to remain in place - UOP adequate - Anticoagulation: subq heparin - Antiplatelet: ASA 81 Padma Ramirez MD Vascular Surgery 09/27/24 * Kita Hodge - 09/27/2024 3:58 PM EST Cv Tech Encounter Note Patient Name: Geovanna Dixon Jr. : [id number] MR#: [id number] Admit Date: 09/26/2024 2:08 PM Hospital Day 1 day Narrative: Java Web Architect initiated visit with patient during rounds on the unit. Patient indicated that he was not holiness. He reported that he was in less pain than when he arrived at the hospital, and that he has had frequent hospital stays in recent months. Assessment: Patient is coping well with stress of hospitalization at this time. Intervention and Outcome: Introduction of Spiritual Health services. Patient indicated he does not feel a need for a chaplainat this time. Follow-up: As requested by patient Time in Direct Care: 5 minutes Kita Hodge 09/27/2024 * Angel Gonsalez MD - 09/27/2024 9:31 AM EST Critical Care Attending Daily Progress Note This patient was seen and examined on daily ICU rounds. Presentation: 49 y.o. male with PMH of CAD c/b NSTEMI in 2011 now s/p 2v CABG and PCI x2, HFrEF (LVEF 47% in May2024), HTN, HLD, insulin dependent diabetes, narcolepsy, substance use (cocaine), and PAD c/b critical limb ischemia of his left-lower extremity now s/p LEFT femoral to below-knee popliteal artery bypass on 08/01/24. Admitted 09/26/24 to SICU for treatment and evaluation of sepsis 2/2 vascular graftassociated infection. Procedures: 09/26/24 LLE wound debridement and PTFE graft explantation 24 Hour Events: Admitted to ICU Assessment, Management, and Decision Making Pt seen and examined with the critical care team with my full assessment and plan by systems as follows: Neuro: Tylenol and oxycodone prn Home medications resumed CV: goal MAP > 65 mmHg Holding home BP meds PULM: on RA GI: NPO for OR today : Na 128, Change to NS for IVF once current LR bag complete HEME: Goal hgb > 7 Holding home xarelto ID: [id number] down from 27 09/26 OSH BCX: GPC, plan for repeat BCx tomorrow 09/26 Wound Cx: GPC Continue on vanc/zosyn day 2. ID consult ENDO: 25 glargine this am (home regimen 50 glargine, plus meal associated lispro) Recheck Hgb A1c Diabetes consult T/L/D: PIV, A line (keep kimberlee for OR but could be d/c'd after) MSK: PT/OT Prophylaxis: DVT SCDs and SQH, GI PPI (home medication) DISPO: OK for transfer to ISCU/floor status Physical Exam Last value Range last 24hrs Temperature Temp: 36.6 ??C (97.9 ??F) Temp: [36.5 ??C (97.7 ??F)-37 ??C (98.6 ??F)] Heart Rate Heart Rate: (!) 102 Heart Rate: [93-108] Blood Pressure BP: 130/83 BP: (117-130)/(77-84) Respiratory Rate Resp: 24 Resp: [16-28] SpO2 SpO2: 96 % SpO2: [95 %-97 %] BMI Body mass index is 31.74 kg/m??. 09/26 0701 - 09/27 0700 In: 2734.6 [P.O.:960; I.V.:1524.6] Out: 2755 [Urine:2705] General: awake and alert Lungs: clear Heart: reg Abdomen: soft Extremities: LLE with KIM wrap, edema but minimal erythema Neuro: no deficits Recent Labs 09/27/24 0001 09/26/24 1439 WBC 23.20* 22.76* HGB 11.7* 12.3* HCT 33.6* 35.0* PLATELET 296 277 PT -- 21.6* INR -- 1.9 PTT -- 36 Recent Labs 09/27/24 0751 09/27/24 0505 09/27/24 0001 09/26/24 1439 NA -- -- 128* 127* K 3.5 3.4* 3.3* 3.4* CL -- -- 92* 89* CO2 -- -- 23 25 BUN -- -- 7* 9* CREATININE -- -- 0.45* 0.55* GLUCOSE -- -- 261* 254* CALCIUM -- -- 8.5 8.9 MAGNESIUM -- -- 0.68* 0.65* PHOS -- -- -- 3.2 Recent Labs 09/26/24 1643 PHART 7.38 PO2ART 96 [id number] 41 LACTATEART 1.7 BEART -1.4 Is this patient critically ill? Is there a high potential of sudden, clinically significant, or life threatening deterioration? No Is there a need for direct personal assessment and management to treat/prevent multiple vital organfailure/deterioration? No D. Alex Gonsalez MD * Karolyn Hudson MD - 09/27/2024 8:52 AM EST Vascular Surgery Progress Note Patient ID Geovanna Dixon Jr. is a 49 y.o. male with history of HTN, HLD, NSTEMI, CAD s/p CABG (12/2011), DM, obesity, PAD s/p L iliofem endart and L fem-BK pop bypass and L 2nd toe amputation who was transferred from [facility] given concern for infected left fem-BK popliteal PTFE bypass. At the OSH, he underwent CT LLE with contrast that demonstrated fluid surrounding the graft and he was initiated on vancomycinand cefepime. He was noted to have a lactate of 3.6. He stated that he noticed his left groin has some swelling and some drainage about a week ago that then extended down his leg over the course of the week. He stated that he presented to the clinic (unclear where) but was not given an antibiotic. He states that he continues to take aspirin as well as Xarelto for his bypass and stopped smoking 1 week ago. states that he stopped smoking 1 week ago. He presented to [facility] on 09/26 and went to the OR for an urgent washout and explant of the graft, with plans for serial return to the OR as indicated for definitive management. Prior vascular history 08/01/2024: Left iliofemoral endarterectomy and left femoral to below-knee popliteal artery bypass with 7mm ringed PTFE 07/19/2024: Left 2nd toe amputation Operations this hospitalization: 09/26/2024: explant of infected left femoral-below knee popliteal artery bypass graft Anticoagulation: Xarelto, bypass patency Antiplatelet: Aspirin Active Hospital Problems Diagnosis Vascular graft infection, initial encounter Resolved Hospital Problems No resolved problems to display. Active Non-Hospital Problems Diagnosis 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 (SVG to PDA closed 08/2013) PAD (peripheral artery disease) Peripheral artery disease Critical limb ischemia of left lower extremity Diabetes mellitus Obesity NSTEMI (non-ST elevated myocardial infarction) HTN (hypertension) Hyperlipidemia Depression Narcolepsy Scheduled Medications: insulin glargine (Lantus;Semglee) (100 unit/mL) subcutaneous injection 25 Units Subcutaneous Nightly acetaminophen 975 mg Oral Q6H JOSE insulin lispro 2-12 Units Subcutaneous Q4H JOSE piperacillin-tazobactam 3.375 g Intravenous Q8H atorvastatin 80 mg Oral QPM aspirin EC 81 mg Oral Daily methylphenidate 20 mg Oral TID pantoprazole EC 40 mg Oral Daily rOPINIRole 0.5 mg Oral QPM senna-docusate 2 tablet Oral BID venlafaxine XR 225 mg Oral Daily vancomycin 1,250 mg Intravenous Q8H heparin (porcine) 5,000 Units Subcutaneous Q8H JOSE lidocaine 1 patch Transdermal Q24H 24 hour events/Subjective - NAEO, AFVSS on RA overnight - Pain is well controlled overall with tylenol and PRN oxy - dressing changed x2 serosanguinous drainage at left groin incision w/ yung - Reports no nausea, vomiting, chest pain or shortness of breath - LLE signals intermittently difficult to find overnight, able to find them this AM Objective BMI: Weight: 101.8 kg (224 lb 6.9 oz) (09/27/24 0600) BMI (Calculated): 32.36 BMI Classification: Obese Intake/Output Summary (Last 24 hours) at 09/27/2024 0852 Last data filed at 09/27/2024 0800 Gross per 24 hour Intake 2789.6 ml Output 2855 ml Net -65.4 ml Temp: [36.5 ??C (97.7 ??F)-37 ??C (98.6 ??F)] Heart Rate: [93-108] Resp: [16-28] BP: (117-130)/(77-84) SpO2: [95 %-97 %] Heart Rate from SpO2: [93 bpm-106 bpm] Physical Exam: GEN: Alert and appears stated age. Cooperative. In NAD. HEENT: Normocephalic and atraumatic. CV: Regular rate. Pulm: Breathing on room air. Abd: Soft, non-distended, non-tender to palpation. Skin: Color, texture, turgor normal. No rashes or lesions. Neuro: No gross sensory or motor abnormality. Extremities: L groin incision site with abd pad with serosanguinous drainage, replaced at bedside. Superior aspect of RLE incision with yung drain, incision well-approximated with cameron, no erythema or edema. Vascular: Doppler signals present at PT bilaterally, DP on right foot. No DP signal on doppler leftfoot (unchanged from previous vascular exam). Labs Last 3 wbc, hgb, hct plt Recent Labs 09/27/24 0001 09/26/24 1439 08/03/24 0441 WBC 23.20* 22.76* 10.74* HGB 11.7* 12.3* 12.5* HCT 33.6* 35.0* 38.5* PLATELET 296 277 309 Microbiology Pending intraoperative cultures New Studies Pending CT angiogram of left lower extremity Assessment & Plan Geovanna Dixon Jr. is a 49 y.o. male with a history of HTN, HLD, NSTEMI, CAD s/p CABG (12/2011), DM,obesity, PAD s/p L iliofem endart and L fem-BK pop bypass and L 2nd toe amputation who was transferred from [facility] given concern for infected left fem-BK popliteal PTFE bypass. He is now s/p an explantof an infected left femoral-below knee popliteal artery bypass graft. Significant purulence under pr essure was seen intraoperatively, surrounding the entire bypass at proximal and distal anastomoses as well as the tunnel. There are retained grafts left at proximal and distal anastomoses, and a Hooper drain placed from left groin to left thigh. Doppler signals in left DP and PT on case completion, which are still present albeit soft. Wound culture from left groin and left calf incision sent, will continue to follow those- recommendations from the infectious disease team greatly appreciated. He has been NPO for RTOR today for further washout, exploration, and graft explant as indicated. - CTA with lower extremity runoff pending - Bedrest - ABIs and vein mapping - Vanc/lashaun (11/19- - Continue aspirin and statin - Tylenol, PRN oxy for pain control - ID consulted, appreciate recs - Daily labs, replete PRN - SQH ppx - ISS Karolyn Hudson MD Vascular Surgery 09/27/24 [id number] * Padma Ramirez MD - 09/27/2024 12:08 AM EST Vascular Surgery Post Op Check Geovanna Dixon Jr. is a 49 y.o. male status post Explant of infected LEFT femoral-below knee popliteal artery bypass graft S: Reports mild left groin pain. Reports left leg pain has improved significantly post-operatively.Reports no fevers, chills, nausea, vomiting, chest pain, or shortness of breath. Offers no complaints O: Temp: [36.6 ??C (97.9 ??F)-37 ??C (98.6 ??F)] Heart Rate: [93-99] Resp: [19-23] BP: -- SpO2: [95 %-97 %] Heart Rate from SpO2: [94 bpm-99 bpm] I/O last 3 completed shifts: In: 1100 [I.V.:1100] Out: 1850 [Urine:1800; Blood:50] I/O this shift: In: 635.3 [P.O.:360; I.V.:275.3] Out: 380 [Urine:380] Physical Exam: GEN: Alert and appears stated age. Cooperative. In NAD. HEENT: Normocephalic and atraumatic. CV: Regular rate. Pulm: Breathing on room air. Skin: Color, texture, turgor normal. Neuro: Sensation and motor grossly intact Extremities: L groin incision site with abd pad with serosanguinous drainage, replaced at bedside. Superior aspect of RLE incision with yung drain, incision well-approximated with cameron, no erythema or edema. Vascular: Doppler signals present at PT bilaterally, DP on right foot. No DP signal on doppler leftfoot (unchanged from previous vascular exam). AP Geovanna Dixon Jr. is a 49 y.o. male status post Explant of infected LEFT femoral-below knee popliteal artery bypass graft. He is currently in stable condition, pain is well controlled, and recovering well. - SBP goal <160 - Bedrest overnight - Mendez in place - Continue aspirin and statin - Tylenol for pain control - SQH ppx - NPO - ICU status Padma Ramirez MD Vascular Surgery 09/27/24 [id number] documented in this encounter H&P Notes * Angel Gonsalez MD - 09/26/2024 11:45 AM EST Critical Care - Admission Note History of Present Illness: Geovanna Dixon Jr. is a 49 y.o. male with PMH of CAD c/b NSTEMI in 2011 now s/p 2v CABG and PCI x2, HFrEF (LVEF 47% in May 2024), HTN, HLD, insulin dependent diabetes, narcolepsy, substance use (cocaine), and PAD c/b critical limb ischemia of his left-lower extremity now s/p LEFT femoral to below-knee popliteal artery bypass on 08/01/[address] Dickson who now presents to the surgical ICU for treatment and evaluation of sepsis 2/2 vascular graft associated infection. The patient presented to [facility] ED on 09/26 for evaluation of increasing pain and redness of his left-groin site for approximately 1-week. Patient denies weakness, numbness, or paresthesias in his affected extremity and likewise denies noticing any drainage from the site. CT at OSH revealed prominentabscess extending from the left groin operative site and along the entire length of the graft, downto and below the knee level. Labs at OSH revealed WBC elevated to 21.5, lactate 3.6 glucose elevated at 285 mg/dL. The patient was subsequently given 500 cc fluid bolus and started on cefepime and vancomycin. Notably, the patient did not require vasopressor support at any time for blood pressure sup port. He remained hemodynamically stable during his time at [facility] and was transported by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 through: Primary Insurance: [employer]ED MEDICARE Payor: [employer]ICARE / Plan: [employer] MEDICARE PPO / Product Type: *No Product type* / Secondary Insurance: N/A Prescription Coverage: Yes This plan was formulated with input from patient, and team. All are in agreement with plan. Cristina Turner RN, BSN * Plan of Care - Lauren Zavala RN - 10/10/2024 12:15 AM EST OUTCOME SUMMARY: Pt A&Ox4, able to make needs known, uses call saucedo appropriately, appropriate with staff. Awakemajority of shift. States normal to be up all night VSS. Afebrile. No c/o nausea. Pt voiding adequate amounts via urinal. Pt passing gas. Pain well controlled with scheduled meds and PRN oxycodone. Incisions CDI. WV @ 125 to LLE CDI, SS drainage in canister RAY w/Serous drainage in bulb, drsg CDI PICC to LUE CDI. Call saucedo in reach, verbalized understanding of POC, Will continue with the current plan of care and update as indicated. PLAN MOVING FORWARD: Encourage independence. Encourage ambulation. Encourage fluids/nutrition. DC planning Maintain pain control. INDIVIDUALIZED FALL PREVENTION INTERVENTIONS: Patient-specific fall risk factors per assessment: [current deficits]: tethering of lines, Narcotics, assistive devices, generalized weakness Assistance [level of assistance required for transfers and ambulation]: SBA for tethering of lines w/FWW Supervision [direct monitoring required during toileting and ADLs]: eyes on Surveillance [continuous indirect monitoring]: Room near nurses station purposeful rounding call saucedo in reach Patient-specific fall prevention interventions for sensory deficits provided, if applicable: [X] Yes, environmental modifications, lights adjusted to task, non- skid socks CPG GOAL OUTCOME EVALUATION: Ongoing Problem: Adult Inpatient Plan of Care Goal: Plan of Care Review Outcome: Ongoing (Interventions Implemented as Appropriate) Flowsheets (Taken 10/10/202414) Plan of Care Reviewed With: patient Goal: Patient-Specific Goal (Individualized) Outcome: Ongoing (Interventions Implemented as Appropriate) Flowsheets (Taken 10/10/202414) Anxieties, Fears or Concerns: nothing Individualized Care Needs (what matters): nothing Patient-Specific Goals (Include Timeframe): home tomrorrow Goal: Absence of Hospital-Acquired Illness or Injury Outcome: Ongoing (Interventions Implemented as Appropriate) Intervention: Identify and Manage Fall Risk Flowsheets (Taken 10/09/20242015) Safety Promotion/Fall Prevention: activity supervised assistive device/personal items within reach fall prevention program maintained nonskid shoes/slippers when out of bed safety round/check completed Intervention: Prevent Skin Injury Flowsheets (Taken 10/09/20242015) Body Position: position changed independently Intervention: Prevent and Manage VTE (Venous Thromboembolism) Risk Flowsheets (Taken 10/09/20242042) VTE Prevention/Management: (lovenox SQ) anticoagulant therapy Intervention: Prevent Infection Flowsheets (Taken 10/09/20242015) Infection Prevention: environmental surveillance performed hand hygiene promoted rest/sleep promoted personal protective equipment utilized Goal: Optimal Comfort and Wellbeing Outcome: Ongoing (Interventions Implemented as Appropriate) Intervention: Provide Person-Centered Care Flowsheets (Taken 10/09/20242022) Trust Relationship/Rapport: care explained choices provided questions answered questions encouraged reassurance provided thoughts/feelings acknowledged Goal: Readiness for Transition of Care Outcome: Ongoing (Interventions Implemented as Appropriate) Problem: Infection Goal: Absence of Infection Signs and Symptoms Outcome: Ongoing (Interventions Implemented as Appropriate) Intervention: Prevent or Manage Infection Flowsheets Taken 10/09/20242022 Fever Reduction/Comfort Measures: lightweight bedding lightweight clothing Taken 10/09/20242015 Isolation Precautions: protective environment maintained Problem: Fall Injury Risk Goal: Absence of Fall and Fall-Related Injury Outcome: Ongoing (Interventions Implemented as Appropriate) Intervention: Identify and Manage Contributors Flowsheets (Taken 10/09/20242015) Medication Review/Management: medications reviewed Self-Care Promotion: independence encouraged BADL personal objects within reach safe use of adaptive equipment encouraged Intervention: Promote Injury-Free Environment Flowsheets (Taken 10/09/20242015) Safety Promotion/Fall Prevention: activity supervised assistive device/personal items within reach fall prevention program maintained nonskid shoes/slippers when out of bed safety round/check completed Problem: Diabetes Comorbidity Goal: Blood Glucose Level Within Targeted Range Outcome: Ongoing (Interventions Implemented as Appropriate) Intervention: Monitor and Manage Glycemia Flowsheets (Taken 10/09/20242042) Glycemic Management: blood glucose monitored Problem: Hypertension Comorbidity Goal: Blood Pressure in Desired Range Outcome: Ongoing (Interventions Implemented as Appropriate) Intervention: Maintain Blood Pressure Management Flowsheets Taken 10/09/20242022 Syncope Management: position changed slowly Taken 10/09/20242015 Medication Review/Management: medications reviewed Problem: Bleeding (Revascularization) Goal: Absence of Bleeding Outcome: Ongoing (Interventions Implemented as Appropriate) Intervention: Monitor and Manage Bleeding Flowsheets (Taken 10/09/20242015) Bleeding Management: dressing monitored Problem: Infection (Revascularization) Goal: Absence of Infection Signs and Symptoms Outcome: Ongoing (Interventions Implemented as Appropriate) Intervention: Prevent or Manage Infection Flowsheets Taken 10/09/20242022 Fever Reduction/Comfort Measures: lightweight bedding lightweight clothing Taken 10/09/20242015 Infection Management: aseptic technique maintained Problem: Pain (Revascularization) Goal: Acceptable Pain Control Outcome: Ongoing (Interventions Implemented as Appropriate) Intervention: Prevent or Manage Pain Flowsheets Taken 10/09/20242022 Pain Management Interventions: [id number] dosing utilized care clustered diversional activity provided pain management plan reviewed with patient/caregiver pillow support provided premedicated for activity prescribed exercises encouraged quiet environment facilitated Taken 10/09/20242015 Diversional Activities: television Problem: Tissue Perfusion Altered (Revascularization) Goal: Effective Tissue Perfusion Outcome: Ongoing (Interventions Implemented as Appropriate) Intervention: Optimize Tissue Perfusion Flowsheets (Taken 10/09/20242015) Body Position: position changed independently * Plan of Care - Indira Tracey RN - 10/09/2024 6:57 PM EST A&O, denies chest pain and SOB, no tele orders, remains on RA. Continues on Q4 finger sticks per order. Wound Vac and RAY drains changed by MD today at bedside. Patient off unit this afternoon fornew PICC line placement per order. Q4 hr neurovascular checks completed per order. OOB independently. Per pt voiding CYU, LBM 10/08. Frequent checks, safety maintained, please see flowsheet for detailed assessment. Problem: Adult Inpatient Plan of Care Goal: Plan of Care Review Outcome: Ongoing (Interventions Implemented as Appropriate) Goal: Patient-Specific Goal (Individualized) Outcome: Ongoing (Interventions Implemented as Appropriate) Goal: Absence of Hospital-Acquired Illness or Injury Outcome: Ongoing (Interventions Implemented as Appropriate) Intervention: Identify and Manage Fall Risk Flowsheets (Taken 10/09/2024 0900) Safety Promotion/Fall Prevention: assistive device/personal items within reach activity supervised fall prevention program maintained clutter free environment maintained mobility aid in reach lighting adjusted nonskid shoes/slippers when out of bed room organization consistent safety round/check completed Intervention: Prevent Skin Injury Flowsheets (Taken 10/09/2024 0900) Body Position: position changed independently Intervention: Prevent and Manage VTE (Venous Thromboembolism) Risk Flowsheets (Taken 10/09/2024 1600) VTE Prevention/Management: anticoagulant therapy Intervention: Prevent Infection Flowsheets (Taken 10/09/2024899) Infection Prevention: environmental surveillance performed equipment surfaces disinfected hand hygiene promoted personal protective equipment utilized rest/sleep promoted single patient room provided Goal: Optimal Comfort and Wellbeing Outcome: Ongoing (Interventions Implemented as Appropriate) Intervention: Provide Person-Centered Care Flowsheets (Taken 10/09/2024899) Trust Relationship/Rapport: care explained choices provided emotional support provided empathic listening provided questions answered questions encouraged reassurance provided thoughts/feelings acknowledged Goal: Readiness for Transition of Care Outcome: Ongoing (Interventions Implemented as Appropriate) Problem: Infection Goal: Absence of Infection Signs and Symptoms Outcome: Ongoing (Interventions Implemented as Appropriate) Intervention: Prevent or Manage Infection Flowsheets (Taken 10/09/2024899) Fever Reduction/Comfort Measures: lightweight clothing lightweight bedding Isolation Precautions: protective environment maintained Infection Management: aseptic technique maintained Problem: Fall Injury Risk Goal: Absence of Fall and Fall-Related Injury Outcome: Ongoing (Interventions Implemented as Appropriate) Intervention: Identify and Manage Contributors Flowsheets (Taken 10/09/2024899) Medication Review/Management: medications reviewed Self-Care Promotion: independence encouraged BADL personal objects within reach BADL personal routines maintained Intervention: Promote Injury-Free Environment Flowsheets (Taken 10/09/2024899) Safety Promotion/Fall Prevention: assistive device/personal items within reach activity supervised fall prevention program maintained clutter free environment maintained mobility aid in reach lighting adjusted nonskid shoes/slippers when out of bed room organization consistent safety round/check completed Problem: Diabetes Comorbidity Goal: Blood Glucose Level Within Targeted Range Outcome: Ongoing (Interventions Implemented as Appropriate) Intervention: Monitor and Manage Glycemia Flowsheets (Taken 10/09/2024899) Glycemic Management: blood glucose monitored insulin dose matched to carbohydrate intake Problem: Hypertension Comorbidity Goal: Blood Pressure in Desired Range Outcome: Ongoing (Interventions Implemented as Appropriate) Intervention: Maintain Blood Pressure Management Flowsheets (Taken 10/09/2024899) Medication Review/Management: medications reviewed Syncope Management: position changed slowly Problem: Bleeding (Revascularization) Goal: Absence of Bleeding Outcome: Ongoing (Interventions Implemented as Appropriate) Intervention: Monitor and Manage Bleeding Flowsheets (Taken 10/09/2024 0900) Bleeding Management: dressing monitored Problem: Bowel Motility Impaired (Revascularization) Goal: Effective Bowel Elimination Outcome: Ongoing (Interventions Implemented as Appropriate) Intervention: Enhance Bowel Motility and Elimination Flowsheets (Taken 10/09/2024899) Bowel Motility Enhancement: ambulation promoted fluid intake encouraged Bowel Elimination Management: hygiene measures promoted Problem: Infection (Revascularization) Goal: Absence of Infection Signs and Symptoms Outcome: Ongoing (Interventions Implemented as Appropriate) Intervention: Prevent or Manage Infection Flowsheets (Taken 10/09/2024899) Fever Reduction/Comfort Measures: lightweight clothing lightweight bedding Infection Management: aseptic technique maintained Problem: Ongoing Anesthesia Effects (Revascularization) Goal: Anesthesia/Sedation Recovery Outcome: Ongoing (Interventions Implemented as Appropriate) Intervention: Optimize Anesthesia Recovery Flowsheets (Taken 10/09/2024899) Reorientation Measures: calendar in view clock in view Safety Promotion/Fall Prevention: assistive device/personal items within reach activity supervised fall prevention program maintained clutter free environment maintained mobility aid in reach lighting adjusted nonskid shoes/slippers when out of bed room organization consistent safety round/check completed Problem: Pain (Revascularization) Goal: Acceptable Pain Control Outcome: Ongoing (Interventions Implemented as Appropriate) Intervention: Prevent or Manage Pain Flowsheets (Taken 10/09/2024899) Diversional Activities: individual hobbies Pain Management Interventions: care clustered pain management plan reviewed with patient/caregiver pillow support provided position adjusted Problem: Postoperative Nausea and Vomiting (Revascularization) Goal: Nausea and Vomiting Relief Outcome: Ongoing (Interventions Implemented as Appropriate) Intervention: Prevent or Manage Nausea and Vomiting Flowsheets (Taken 10/09/2024899) Nausea/Vomiting Interventions: nausea triggers minimized Problem: Postoperative Urinary Retention (Revascularization) Goal: Effective Urinary Elimination Outcome: Ongoing (Interventions Implemented as Appropriate) Intervention: Monitor and Manage Urinary Retention Flowsheets (Taken 10/09/2024899) Urinary Elimination Promotion: toileting offered Problem: Tissue Perfusion Altered (Revascularization) Goal: Effective Tissue Perfusion Outcome: Ongoing (Interventions Implemented as Appropriate) Intervention: Optimize Tissue Perfusion Flowsheets (Taken 10/09/2024899) Body Position: position changed independently * Plan of Care - Jorge Torres RN - 10/09/2024 1:55 PM EST Images from the original note were not included. [facility] [place] [address] [facility] Vascular Access Service Peripherally Inserted Central Catheter (PICC) Teaching Sheet Peripherally inserted central catheters ([id number]) (PICC) are used when you need IV (intravenous) medicines and fluids. A catheter is a small flexible plastic tube. The catheter is put in througha vein under your skin. A vein is a tube inside your body that carries blood from the body to the heart. The catheter is usually put into a vein on the inside of your upper arm. Then it is threaded up this vein and ends in the blood vessel near your heart. The PICC catheter may be used for taking blood for laboratory tests. You may also get IV fluids andmedicines quickly and easily. Having the catheter may keep your arm from being stuck many times with a needle. The catheter will have 1-3 small tails (tubes) coming from your arm where the catheter was put in. Why do I need a PICC line or midline catheter? PICC lines are used for chcf treatments. PICC lines may be used for up to a year. They are often put in to give you IV medicines at home. You may need a PICC catheter because caregivers cannot use smaller veins in your body. Smaller veins may be damaged, or they may have poor blood flow. Catheters are also used in case of emergency when you would need medicines or fluids very quickly. The following are medicines and treatments you may get when you have a PICC line. ?? Antibiotics. These are medicines to prevent infection. ?? Frequent blood sample collection. ?? IV medicines that would make your smaller veins sore or damaged. ?? Receiving IV fluids for a long period of time. ?? Pain medicine. ?? Total Parenteral Nutrition: This is also called TPN. TPN is a special liquid food that goes directly into your veins. ?? Blood ?? Chemotherapy (Medicine for cancer) What are the benefits of having a PICC line put in? Having a PICC line may keep your arm from being stuck many times with a needle to draw blood or start an IV (intravenous catheter) . Through a PICC catheter, you may have blood taken for tests. You may also get IV fluids and medicines quickly and easily. Small veins can be damaged or irritated by certain drugs or nutritional solutions. A PICC line helps to decrease vein irritation from antibiotics, IV pain drugs, or IV cancer drugs. A PICC line can be left in place when you go home. If you go home with a PICC line in place, home care can be set up via the nurse Pin Inserter to help you. What are possible complications of having a PICC line put in? Some possible complications are: bruising, swelling, or infection in the arm with the PICC line mal-positioned catheter (catheter tip in wrong place) occlusion (blocked catheter) mechanical phlebitis (vein irritation) and thrombosis (clot) Your doctor is the person you should talk to if you have questions about what would happen if you do not choose to have a PICC line put in. Your doctor can talk to you about other choices you may have. What should I expect when it is put in? A written consent that gives you're ok to have it put in needs to be signed after you understand that you are going to have a PICC put in, and all your questions about the procedure have been answered to your satisfaction. This is a safety feature that the hospital practices before doing procedures. An experienced nurse who has been through special training and education will be putting this catheter in. The procedure is done in a specially equipped room in Interventional Radiology on the third floor. The PICC nurse will first talk to you about any questions that you may have. The PICC nurse will explain to you what is going to be done before starting. Once you arrive in the procedure room in Interventional Radiology, the PICC nurse will then set up for the procedure. She will unwrap the sterile kit and open the needed supplies. A gown and mask andgloves will be worn while putting it in. An ultrasound machine will be used to help guide the catheter in the right place. This machine uses a handle with sound waves to find the vein. The area on your arm where the catheter will be put in is then numbed with a medicine put under your skin with a tiny needle. The nurse will then put in the catheter using fluoroscopy (a type of x-ray) as a guide. Once the catheter is in your vein, it will be threaded up your arm to the area beforeyour heart. While it is being threaded, you may be asked to turn your head. When the catheter is in, the nurse will place a small dressing on the site along with a little jerry which will help keep the catheter in place. After the procedure is done, a radiologist (doctor in x-ray department) will look at your x-ray to make sure that the end of the catheter is in proper position to give your fluids and/or medications. What should I expect in the care of my PICC? A dressing that is specially made to prevent infections will be put on. After this, the dressing will only be changed once a week unless it needs it sooner. If you go home with the catheter in, you may take a shower as long as you keep the site dry. You can do this by wearing a specially fitted PICC protector that will be provided to you before dischargefrom the hospital. The dressing at the site must be kept clean and dry. It is important that you watch for signs of infection at the site. Your healthcare provider should be notified if these occur: Redness Swelling Pus Pain at the site Other reasons to notify your healthcare provider are: Catheter becomes partially or totally removed Unable to infuse medication/fluid Unable to draw back blood from the catheter. This may be an early sign that a clot is forming on the end of the catheter. If this occurs, a medicine called Cathflo may be used to dissolve this clot. Ask the PICC nurse or your doctor, any questions you may have so you feel secure in consenting to having a PICC line. References: Vascular Access Device Selection, Insertion, and Management, [employer] 08/12. A Review of the Efficacy, Safety, Use, and Administration of Cathflo, [employer] 2005 * Care Management - Cristina Turner RN - 10/09/2024 11:39 AM EST OFFICE OF CARE MANAGEMENT PROGRESS NOTE LOS: Hospital Day 13 days Chart reviewed, care reviewed with primary team and at interdisciplinary rounds. Medical Decision Maker: Self Financial Decision Maker: Self Functional status prior to admission: Independent Home Environment: Others in the home: sibling(s), other (see comments) (lives with his sister delmy and brother in law). Current Living Arrangements: home/apartment/condo. Accessibility Concerns: . Current Functional Ability: Assistive Person and Equipment DME used at home: none DME Needed at Discharge: No Patient is insured through: Primary Insurance: [employer] MANAGED MEDICARE Payor: [employer] MANAGED MEDICARE / Plan: WELL[employer] MANAGED MEDICARE PPO / Product Type: *No Product type* / Secondary Insurance: N/A Physical Therapy Recommendation: home with supervision (and support from family, prn) with None (10/03/24 1101) Last Occupational Therapy Recommendation: home (w/ family) with None (10/03/24 1055) Plan for discharge is: Home w/ Services Outpatient Agency/Support Group Needs: Homecare agency Agency Choices: VNA for RN/PT/OT Outpatient IV Medications - IV Access: Access Ordered Location: Home, Referred to [facility] Coordination Home Health Services: Occupational Therapy, Physical Therapy, Registered Nurse- will remove PT, OT Agency Referrals: [facility] and [facility] for IV abx. [facility] can come tomorrow for teach. Transportation: family or friend will provide Barriers to discharge: Global: Discharge planning Global Comment: VNA Plan: Patient is not medically ready related to: IV Abx order needed. Teaching from [facility] tomorrow. Pending auth for wound vac. Plan going forward is: Patient will go home with home care, wound vac and IV abx when med ready for discharge. Anticipated Date of Discharge: 10/10/2024 Cristina Turner RN, BSN * Care Management - Cristina Turner RN - 10/09/2024 9:00 AM EST OFFICE OF CARE MANAGEMENT Pin Inserter Follow-up Note Cristina Turner RN reviewed record and discussed patient with Care Team. Patient had been determined to discharge home with [facility] home vac need. Patient plan of care discussed in multidisciplinary rounds and assessment for continuing care and discharge needs. Diagnosis: Vascular graft infection, initial encounter INSURANCE: Payor: [employer] MANAGED MEDICARE / Plan: WELL[employer] MANAGED MEDICARE PPO / Product Type: *No Product type* / SECONDARY INSURANCE: N/A Discharge date planned for 10/09 if medically ready. Current Referral in place: VNA: [facility] Wound vac ordered in [employer] for home wound vac and order emailed to: María for signature. Pin Inserter to follow with team and family to assist with discharge needs when patient ready for discharge. Cristina Turner RN, BSN Case Management * Plan of Care - Jordyn Navas RN - 10/09/2024 7:22 AM EST OUTCOME EVALUATION NOTE: OUTCOME SUMMARY: RAY drain minimal output - more frequent pain overnight but controlled with PRNmeds, some difficultysleeping VSS, Meds/Assessments as charted, Frequent safety checks performed PLAN MOVING FORWARD: Possible DC today INDIVIDUALIZED FALL PREVENTION INTERVENTIONS: Patient-specific fall risk factors per assessment: [current deficits]: Lines/Devices, Recent procedure, High risk medications, Unfamiliar environment, General weakness Assistance [level of assistance required for transfers and ambulation]: Assist x1 w/ RW to Bathroom/BSC Supervision [direct monitoring required during toileting and ADLs]: Supervised Activity Surveillance [continuous indirect monitoring]: Frequent rounding & safety checks Patient-specific fall prevention interventions for sensory deficits provided, if applicable: [X] Yes CARE PLAN GOAL OUTCOME EVALUATION: Problem: [...] Outcome: Ongoing (Interventions Implemented as Appropriate) * Care Management - Cristina Turner RN - 10/09/2024 6:42 AM EST This patient requires infusion therapy. A letter describing our affiliations was reviewed with themand they were educated about their right to choose where referrals are placed. Request referral to [place], [place] for IV abx or . Expected date of discharge: 10/11. Patient will require teaching. Referral routed to the Foreign Language Instructor for matching with agency/vendor and to provide any required information. * Plan of Care - Indira Tracey RN - 10/08/2024 7:34 PM EST A&O, denies chest pain and SOB, no tele orders, remains on RA. Continues on Q4 finger sticks per order. Wound Vac and RAY drains remain place. Q4 hr neurovascular checks completed per order. OOB with SBA and offloading shoe. Voiding CYU, LBM 10/08. Frequent checks, safety maintained, please see flowsheet for detailed assessment. Problem: Adult Inpatient Plan of Care Goal: Plan of Care Review Outcome: Ongoing (Interventions Implemented as Appropriate) Goal: Patient-Specific Goal (Individualized) Outcome: Ongoing (Interventions Implemented as Appropriate) Goal: Absence of Hospital-Acquired Illness or Injury Outcome: Ongoing (Interventions Implemented as Appropriate) Intervention: Identify and Manage Fall Risk Flowsheets (Taken 10/08/2024831) Safety Promotion/Fall Prevention: assistive device/personal items within reach activity supervised clutter free environment maintained fall prevention program maintained mobility aid in reach nonskid shoes/slippers when out of bed room organization consistent safety round/check completed Intervention: Prevent Skin Injury Flowsheets (Taken 10/08/2024831) Body Position: position changed independently Intervention: Prevent and Manage VTE (Venous Thromboembolism) Risk Flowsheets (Taken 10/08/2024 1605) VTE Prevention/Management: anticoagulant therapy Intervention: Prevent Infection Flowsheets (Taken 10/08/2024831) Infection Prevention: environmental surveillance performed equipment surfaces disinfected hand hygiene promoted personal protective equipment utilized single patient room provided rest/sleep promoted Goal: Optimal Comfort and Wellbeing Outcome: Ongoing (Interventions Implemented as Appropriate) Intervention: Provide Person-Centered Care Flowsheets (Taken 10/08/2024831) Trust Relationship/Rapport: emotional support provided care explained choices provided empathic listening provided questions answered questions encouraged thoughts/feelings acknowledged reassurance provided Goal: Readiness for Transition of Care Outcome: Ongoing (Interventions Implemented as Appropriate) Problem: Infection Goal: Absence of Infection Signs and Symptoms Outcome: Ongoing (Interventions Implemented as Appropriate) Intervention: Prevent or Manage Infection Flowsheets (Taken 10/08/2024831) Fever Reduction/Comfort Measures: lightweight bedding lightweight clothing Isolation Precautions: protective environment maintained Infection Management: aseptic technique maintained Problem: Fall Injury Risk Goal: Absence of Fall and Fall-Related Injury Outcome: Ongoing (Interventions Implemented as Appropriate) Intervention: Identify and Manage Contributors Flowsheets (Taken 10/08/2024831) Medication Review/Management: medications reviewed Self-Care Promotion: independence encouraged BADL personal objects within reach BADL personal routines maintained Intervention: Promote Injury-Free Environment Flowsheets (Taken 10/08/2024831) Safety Promotion/Fall Prevention: assistive device/personal items within reach activity supervised clutter free environment maintained fall prevention program maintained mobility aid in reach nonskid shoes/slippers when out of bed room organization consistent safety round/check completed Problem: Diabetes Comorbidity Goal: Blood Glucose Level Within Targeted Range Outcome: Ongoing (Interventions Implemented as Appropriate) Intervention: Monitor and Manage Glycemia Flowsheets (Taken 10/08/2024831) Glycemic Management: blood glucose monitored insulin dose matched to carbohydrate intake Problem: Hypertension Comorbidity Goal: Blood Pressure in Desired Range Outcome: Ongoing (Interventions Implemented as Appropriate) Intervention: Maintain Blood Pressure Management Flowsheets (Taken 10/08/2024831) Medication Review/Management: medications reviewed Syncope Management: position changed slowly Problem: Bleeding (Revascularization) Goal: Absence of Bleeding Outcome: Ongoing (Interventions Implemented as Appropriate) Intervention: Monitor and Manage Bleeding Flowsheets (Taken 10/08/2024831) Bleeding Management: dressing monitored Problem: Bowel Motility Impaired (Revascularization) Goal: Effective Bowel Elimination Outcome: Ongoing (Interventions Implemented as Appropriate) Intervention: Enhance Bowel Motility and Elimination Flowsheets (Taken 10/08/2024831) Bowel Motility Enhancement: fluid intake encouraged ambulation promoted Bowel Elimination Management: hygiene measures promoted relaxation techniques promoted Problem: Infection (Revascularization) Goal: Absence of Infection Signs and Symptoms Outcome: Ongoing (Interventions Implemented as Appropriate) Intervention: Prevent or Manage Infection Flowsheets (Taken 10/08/2024831) Fever Reduction/Comfort Measures: lightweight bedding lightweight clothing Infection Management: aseptic technique maintained Problem: Ongoing Anesthesia Effects (Revascularization) Goal: Anesthesia/Sedation Recovery Outcome: Ongoing (Interventions Implemented as Appropriate) Intervention: Optimize Anesthesia Recovery Flowsheets (Taken 10/08/2024831) Reorientation Measures: calendar in view clock in view Safety Promotion/Fall Prevention: assistive device/personal items within reach activity supervised clutter free environment maintained fall prevention program maintained mobility aid in reach nonskid shoes/slippers when out of bed room organization consistent safety round/check completed Problem: Pain (Revascularization) Goal: Acceptable Pain Control Outcome: Ongoing (Interventions Implemented as Appropriate) Intervention: Prevent or Manage Pain Flowsheets (Taken 10/08/2024831) Diversional Activities: individual hobbies Pain Management Interventions: care clustered diversional activity provided position adjusted lfmeyo-[id number]-[id number] dosing utilized pain management plan reviewed with patient/caregiver pillow support provided Problem: Postoperative Nausea and Vomiting (Revascularization) Goal: Nausea and Vomiting Relief Outcome: Ongoing (Interventions Implemented as Appropriate) Intervention: Prevent or Manage Nausea and Vomiting Flowsheets (Taken 10/08/2024831) Nausea/Vomiting Interventions: nausea triggers minimized Problem: Postoperative Urinary Retention (Revascularization) Goal: Effective Urinary Elimination Outcome: Ongoing (Interventions Implemented as Appropriate) Intervention: Monitor and Manage Urinary Retention Flowsheets (Taken 10/08/2024 0832) Urinary Elimination Promotion: toileting offered Problem: Tissue Perfusion Altered (Revascularization) Goal: Effective Tissue Perfusion Outcome: Ongoing (Interventions Implemented as Appropriate) Intervention: Optimize Tissue Perfusion Flowsheets (Taken 10/08/2024 0832) Body Position: position changed independently * Plan of Care - Misael Bo RN - 10/08/2024 5:44 AM EST OUTCOME EVALUATION NOTE: OUTCOME SUMMARY: AOx4, VSS on RA, pt states no pain. Wound vac and RAY drain sites CDI. PLAN MOVING FORWARD: Wound vac, RAY drains, Pain control INDIVIDUALIZED FALL PREVENTION INTERVENTIONS: Patient-specific fall risk factors per assessment: [current deficits]: Lines/Devices, Recent procedure, High risk medications, Unfamiliar environment, General weakness Assistance [level of assistance required for transfers and ambulation]: Assist x1 w/ RW to Bathroom/BSC Supervision [direct monitoring required during toileting and ADLs]: Supervised Activity Surveillance [continuous indirect monitoring]: Frequent rounding & safety checks Patient-specific fall prevention interventions for sensory deficits provided, if applicable: [X] Yes Problem: Adult Inpatient Plan of Care Goal: [...] Implemented as Appropriate) * Consult Note - Dai Spring RPH - 10/07/2024 9:22 PM EST The pharmacist-managed vancomycin consult service will sign-off and vancomycin therapy, if it is tan continued, must be ordered by the responsible prescriber. Pharmacists??? therapeutic drug monitoring will continue for patients receiving vancomycin. Should specific assistance be needed regarding re-initation or continuation of vancomycin therapy, please page the care area pharmacist with any questions you may have. Alternately, during off-hours you may call [phone] to contact a pharmacist. * Plan of Care - Jordyn Navas RN - 10/07/2024 7:21 PM EST OUTCOME EVALUATION NOTE: OUTCOME SUMMARY: [facility], Meds/Assessments as charted, Frequent safety checks performed PLAN MOVING FORWARD: Wound vac, RAY drains, Pain control INDIVIDUALIZED FALL PREVENTION INTERVENTIONS: Patient-specific fall risk factors per assessment: [current deficits]: Lines/Devices, Recent procedure, High risk medications, Unfamiliar environment, General weakness Assistance [level of assistance required for transfers and ambulation]: Assist x1 w/ RW to Bathroom/BSC Supervision [direct monitoring required during toileting and ADLs]: Supervised Activity Surveillance [continuous indirect monitoring]: Frequent rounding & safety checks Patient-specific fall prevention interventions for sensory deficits provided, if applicable: [X] Yes CARE PLAN GOAL OUTCOME EVALUATION: Problem: [...] as Appropriate) * Plan of Care - Melia Whitehead RN - 10/07/2024 5:07 AM EST Problem: Adult Inpatient Plan of Care Goal: [...] as Appropriate) * Plan of Care - Liana Mccormack RN - 10/06/2024 4:52 PM EST PICC line placed today for chcf ABX. Neurovascular checks unchanged. Good oral intake and urinary output. No BM this shift. Adequate glycemic control. Adequate pain control. Tolerated bedside VAC dressing change. Q4h neurovascular checks, Q4h I/O, VS per unit policy, downgrade to floor status. Problem: Adult Inpatient Plan of Care Goal: [...] as Appropriate) * Plan of Care - Dominique Holman RN - 10/06/2024 2:57 PM EST Images from the [place] [address] [facility] Vascular Access Service Peripherally Inserted Central Catheter (PICC) Teaching Sheet Peripherally inserted central catheters ([id number]-mr-unhi) (PICC) are used when you need IV (intravenous) medicines and fluids. A catheter is a small flexible plastic tube. The catheter is put in througha vein under your skin. A vein is a tube inside your body that carries blood from the body to the heart. The catheter is usually put into a vein on the inside of your upper arm. Then it is threaded up this vein and ends in the blood vessel near your heart. The PICC catheter may be used for taking blood for laboratory tests. You may also get IV fluids andmedicines quickly and easily. Having the catheter may keep your arm from being stuck many times with a needle. The catheter will have 1-3 small tails (tubes) coming from your arm where the catheter was put in. Why do I need a PICC line or midline catheter? PICC lines are used for chcf treatments. PICC lines may be used for up to a year. They are often put in to give you IV medicines at home. You may need a PICC catheter because caregivers cannot use smaller veins in your body. Smaller veins may be damaged, or they may have poor blood flow. Catheters are also used in case of emergency when you would need medicines or fluids very quickly. The following are medicines and treatments you may get when you have a PICC line. ?? Antibiotics. These are medicines to prevent infection. ?? Frequent blood sample collection. ?? IV medicines that would make your smaller veins sore or damaged. ?? Receiving IV fluids for a long period of time. ?? Pain medicine. ?? Total Parenteral Nutrition: This is also called TPN. TPN is a special liquid food that goes directly into your veins. ?? Blood ?? Chemotherapy (Medicine for cancer) What are the benefits of having a PICC line put in? Having a PICC line may keep your arm from being stuck many times with a needle to draw blood or start an IV (intravenous catheter) . Through a PICC catheter, you may have blood taken for tests. You may also get IV fluids and medicines quickly and easily. Small veins can be damaged or irritated by certain drugs or nutritional solutions. A PICC line helps to decrease vein irritation from antibiotics, IV pain drugs, or IV cancer drugs. A PICC line can be left in place when you go home. If you go home with a PICC line in place, home care can be set up via the nurse Pin Inserter to help you. What are possible complications of having a PICC line put in? Some possible complications are: bruising, swelling, or infection in the arm with the PICC line mal-positioned catheter (catheter tip in wrong place) occlusion (blocked catheter) mechanical phlebitis (vein irritation) and thrombosis (clot) Your doctor is the person you should talk to if you have questions about what would happen if you do not choose to have a PICC line put in. Your doctor can talk to you about other choices you may have. What should I expect when it is put in? A written consent that gives you're ok to have it put in needs to be signed after you understand that you are going to have a PICC put in, and all your questions about the procedure have been answered to your satisfaction. This is a safety feature that the hospital practices before doing procedures. An experienced nurse who has been through special training and education will be putting this catheter in. The procedure is done in a specially equipped room in Interventional Radiology on the third floor. The PICC nurse will first talk to you about any questions that you may have. The PICC nurse will explain to you what is going to be done before starting. Once you arrive in the procedure room in Interventional Radiology, the PICC nurse will then set up for the procedure. She will unwrap the sterile kit and open the needed supplies. A gown and mask andgloves will be worn while putting it in. An ultrasound machine will be used to help guide the catheter in the right place. This machine uses a handle with sound waves to find the vein. The area on your arm where the catheter will be put in is then numbed with a medicine put under your skin with a tiny needle. The nurse will then put in the catheter using fluoroscopy (a type of x-ray) as a guide. Once the catheter is in your vein, it will be threaded up your arm to the area beforeyour heart. While it is being threaded, you may be asked to turn your head. When the catheter is in, the nurse will place a small dressing on the site along with a little jerry which will help keep the catheter in place. After the procedure is done, a radiologist (doctor in x-ray department) will look at your x-ray to make sure that the end of the catheter is in proper position to give your fluids and/or medications. What should I expect in the care of my PICC? A dressing that is specially made to prevent infections will be put on. After this, the dressing will only be changed once a week unless it needs it sooner. If you go home with the catheter in, you may take a shower as long as you keep the site dry. You can do this by wearing a specially fitted PICC protector that will be provided to you before dischargefrom the hospital. The dressing at the site must be kept clean and dry. It is important that you watch for signs of infection at the site. Your healthcare provider should be notified if these occur: Redness Swelling Pus Pain at the site Other reasons to notify your healthcare provider are: Catheter becomes partially or totally removed Unable to infuse medication/fluid Unable to draw back blood from the catheter. This may be an early sign that a clot is forming on the end of the catheter. If this occurs, a medicine called Cathflo may be used to dissolve this clot. Ask the PICC nurse or your doctor, any questions you may have so you feel secure in consenting to having a PICC line. References: Vascular Access Device Selection, Insertion, and Management, [employer] 08/12. A Review of the Efficacy, Safety, Use, and Administration of Cathflo, [employer] 2005 * Care Management - Vibha Wahl RN - 10/06/2024 12:28 PM EST OFFICE OF CARE MANAGEMENT PROGRESS NOTE LOS: Hospital Day 10 days Chart reviewed, care reviewed with primary team and at interdisciplinary rounds. Medical Decision Maker: Self Financial Decision Maker: Self Functional status prior to admission: Independent Home Environment: Others in the home: sibling(s), other (see comments) (lives with his sister delmy and brother in law). Current Living Arrangements: home/apartment/condo. Accessibility Concerns: . Current Functional Ability: Assistive Person and Equipment DME used at home: none DME Needed at Discharge: No Patient is insured through: Primary Insurance: WE[employer] MANAGED MEDICARE Payor: [employer] MANAGED MEDICARE / Plan: WELLC[employer] MANAGED MEDICARE PPO / Product Type: *No Product type* / Secondary Insurance: N/A Last Physical Therapy Recommendation: home with supervision (and support from family, prn) with None (10/03/24 1101) Last Occupational Therapy Recommendation: home (w/ family) with None (10/03/24 1055) Plan for discharge is: Home w/ Services Outpatient Agency/Support Group Needs: Homecare agency Agency Choices: VNA for RN/PT/OT Home Health Services: Occupational Therapy, Physical Therapy, Registered Nurse Transportation: family or friend will provide Barriers to discharge: Global: Discharge planning Global Comment: VNA Plan: Patient is not medically ready related to: wound care management and abx management needs. Plan going forward is: Continuing wound vac and IV abx. Anticipated d/c to home early next week w/ VNAservices for RN/PT/OT needs, unclear what abx and vac needs will be. Anticipated Date of Discharge: 10/10/2024 Vibha Wahl RN-BSN-CM Pager: [phone] * Consult Note - Stormy Muller [facility] - 10/06/2024 9:19 AM EST [facility] Pharmacokinetics Note Drug: Vancomycin Pharmacokinetic target: AUC24 (range) 400-600 mg/L.hr Current regimen: 1250 mg IV every 8 hours Geovanna Dixon is a(n) 49 years old male receiving Vancomycin 1250 mg IV every 8 hours for MRSA bacteremia/graft infection Recent measured serum creatinine values: 10/06/2024 00:03 0.85 mg/dL 10/04/2024 23:50 0.55 mg/dL 10/04/2024 00:08 0.56 mg/dL Assessment: Analysis of the most recent level(s) using [employer]igrateRX gives the following patient-specific pharmacokinetic parameters: CL: 5.96 L/hr V: 52.1 L T1/2: 6.26 hours Using these values, the current regimen of Vancomycin 1250 mg IV every 8 hours is predicted to result in a steady-state trough of 18 mg/L and AUC24 of 629 mg/L.hr. At this time we recommend a regimenof 1000 mg IV every 8 hours, which is predicted to result in a steady-state trough of 14.6 mg/L [id number] of 508 mg/L.hr. Recommendations: - SCr has risen and AUC is now above target goal. Reducing dose to Vancomycin 1000 mg IV every 8 hours - Obtain Vancomycin level in ~48 hours - Continue to monitor serum creatinine Stormy Muller * Plan of Care - Melia Whitehead RN - 10/06/2024 5:46 AM EST OUTCOME EVALUATION NOTE: OUTCOME SUMMARY: Patient is AO x 4, VSS on RA.NSR on tele. BP maintained with PRN given 1x. Pain controlled by PRN. Wound vac remains intact - wound vac machine changed due to leak secured and working well. RAY drainswith minimal to no output. Neurovascular check remains the same with palpable pulses intermittent +1 / +2 and with good signal on doppler. Had a hard time getting sleep and was able to dose off around almost 0430 in the morning. AUO overnight. PLAN MOVING FORWARD: BG q4h Neurovascular check q2h Ambulate? INDIVIDUALIZED FALL PREVENTION INTERVENTIONS: Patient-specific fall risk factors per assessment: [current deficits]: lines/ cords, generalized weakness, L leg wounds Assistance [level of assistance required for transfers and ambulation]: 1A w/ walker Supervision [direct monitoring required during toileting and ADLs]: hands on / eyes on Surveillance [continuous indirect monitoring]: ISCU monitors, call light within reach, purposeful rounding, Patient-specific fall prevention interventions for sensory deficits provided, if applicable: [X] N/A CPG GOAL OUTCOME EVALUATION: Problem: Adult Inpatient [...] as Appropriate) * Plan of Care - Liana Mccormack RN - 10/05/2024 5:54 PM EST DP and PT pulses palpable bilaterally, CSMTs bilaterally intact. NPWT sites x3 intact, maintaining adequate suction at 100. Scant ouput from drains x3. Good glycemic control. Good PO intake. Good urinary output. Up to chair for most of the shift. Problem: Adult Inpatient Plan of Care Goal: [...] as Appropriate) * Plan of Care - Cathryn Hankins RN - 10/05/2024 6:13 AM EST OUTCOME EVALUATION NOTE: OUTCOME SUMMARY: Patient is A&Ox4, calm, and cooperative w/ care. VSS on RA. NSR w/ prolonged QTc on tele, EKG done. No c/o of chest pain and/or SOB. Team aware. No BM, but normoactive bowel sounds and passing flatus, refused docusate senna. AUOP. Neurovascular checks unchanged. NPWT continuous setting @100mmHg. PRN oxycodone x1 for pain. PLAN MOVING FORWARD: Stepdown status Q2h neurovascular checks QS VS Q4h FS Abx administration HELEN TBD IINDIVIDUALIZED FALL PREVENTION INTERVENTIONS: Patient-specific fall risk factors per assessment: [current deficits]: Lines, drains, IV, weakness Assistance [level of assistance required for transfers and ambulation]: bed rest Supervision [direct monitoring required during toileting and ADLs]: hands on, eyes on Surveillance [continuous indirect monitoring]: tele, oximeter, room near nursing station, purposeful rounding, call saucedo within reach. Patient-specific fall prevention interventions for sensory deficits provided, if applicable: [X] No CPG GOAL OUTCOME EVALUATION: * Plan of Care - Liana Mccormack RN - 10/04/2024 6:06 PM EST OUTCOME EVALUATION NOTE: OUTCOME SUMMARY: A&Ox4, VSS on RA. No pain. NSR on telemetry. Gr1 late systolic whooshing murmur over aortic andpulmonic areas. NPO for procedure today. DP pulse now palpable in LLE, neurovascular checks otherwise unchanged. NPWT maintaining adequate suction, continuous setting @125. OR today for NPWT change. VSS on return. Tolerating PO intake. No pain. PLAN MOVING FORWARD: Stepdown status Q2h neurovascular checks QS VS HELEN TBD INDIVIDUALIZED FALL PREVENTION INTERVENTIONS: Patient-specific fall risk factors per assessment: [current deficits]: Revascularization, LDA's, LLE surgery, use of ambulatory aid, comorbidities Assistance [level of assistance required for transfers and ambulation]: 1A FWW Supervision [direct monitoring required during toileting and ADLs]: 1A Surveillance [continuous indirect monitoring]: Tele, SPO2, Apnea, rounding, room near nurses station Patient-specific fall prevention [...] Recovery Outcome: Ongoing (Interventions Implemented as Appropriate) * Op Note - Cristino Meeks MD - 10/04/2024 5:01 PM EST [facility] [place] Operative Note Patient Name: Geovanna Dixon : [id number] MR#: [id number] Case Date: 10/04/2024 Surgeon: Surgeons and Role: * Marko Dickson MD - Primary * Cristino Meeks MD - Resident - Assisting Preoperative diagnosis: Status post explant of infected left [employer]-BK pop bypass graft Postoperative diagnosis: Status post explant of infected left [employer]-BK pop bypass graft Procedure(s) (LRB): DEBRIDEMENT SKIN AND SUBCU, LOWER EXTREMITY (WRVU 1.01) (Left) Modifiers: 22: Increased procedural services Findings: All left leg incision sites are clean with small amount of fibrinous exudate that was bluntly debrided and copiously irrigated with normal saline. Left sartorius flap is healthy. No artery visualized in groin or calf incisions. 2 RAY drains remained, the one RAY drain that is medial was trimmed back so that it laid flat in the groin. Left groin wound had 1 black sponge placed (1 black and 1 white removed) Left proximal thigh wound had 1 black sponge placed Left distal thigh wound had 1 new 1-inch yung drain placed to the posterior thigh compartment then packed with a WTD Kerlix and dressed with 4x4 gauze then ABD pad then with Medipore tape. Left calf wound had 1 black sponge placed Anesthesia: General Estimated Blood Loss: 5 mL Specimens removed during surgery: * No specimens in log * Drains: 2 RAY drains (1 lateral RAY drain for sartorious flap; 1 medial RAY drain that goes into the groin); 3 wound vacs Surgical Closure: Other Than Primary Closure - [...] 49 y.o. male with a history of HTN, HLD, NSTEMI, CAD s/p CABG (12/2011), DM, obesity, PAD s/p L iliofem endart and L fem-BK pop bypass and L 2nd toe amputation who was transferred from [facility] given concern for infected left fem-BK popliteal PTFE bypass. He is now s/p an explant of an infected left femoral-below knee popliteal artery bypass graft on 09/26 followed by I/D posterior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 knee popliteal artery bypass graft. HE returns to the OR today for wound vac change and debridement Procedure Description: After informed consent was obtained, the patient was brought to the operating room, and placed on the operating room table in the supine position. General endotracheal anesthesia was induced. The patient's left lower extremity was prepped and draped in the usual sterile fashion. A timeout was performed. The wounds were explored with removal of the sponges as above. The groin incision was explored which appeared to be clean with a minimal amount of serous fluid at most inferior portion along the Yung tunnel. Otherwise, the wound had healthy granulation tissue in the subcutaneous tissues and slightly over the sartorius flap. The remainder of the wounds including the 2 additional skip incision lines as well as the below-knee popliteal artery 1 appeared to be healthy with a similar appearance of some serous fluid in the base. Using a red rubber catheter, we then irrigated out all the wounds by snaking the catheter through the subcutaneous tunnels track. The effluent all appeared to be clear without any evidence of retained hematoma or other fibrinous debris. A minimal amount of sharp excisional debridement with Metzenbaum scissors and a curette were needed for the subcutaneous tissue and muscle with a small amount of fibrinous debris. Approximately 20 cm?? of subcutaneous tissue fat and muscle were debrided. From the second lowest counterincision from the groin, we then attached a 15 Kazakh Jose drain to the Yung drain, and remove the Yung drain, replacing it with the 15 Kazakh Jose drain. In a similar way we did this similar maneuver from the most inferior wound to anterior thigh wound, that was second from the femoral wound. Both of these drains were medialized in a dependent fashion and brought out through the skin. Satisfied with our debridement we then placed 1 white sponge and the femoral wound as well as the below-knee popliteal artery exposure wound followed by a single black sponge in each. A third black sponge was placed as a bridge for the BK pop exposure incision. The VAC systems were connected to suction or holding suction without issue. The more superior drain was holding bulb suction, however the more inferior drain was not. The lateral drain along the sartorius flap dissection that remained in situ. At the end of the case, all needle, sponge, and instrument counts were correct. The patient was awakened from general anesthesia and taken to the postanesthesia care in good condition. Surgical Infection Prevention Bundle Used? N/A Tato Aguirre MD * Care Management - Penny To RN - 10/02/2024 1:48 PM EST OFFICE OF CARE MANAGEMENT PROGRESS NOTE LOS: Hospital Day 6 days Chart reviewed, care reviewed with primary team and at interdisciplinary rounds. Medical Decision Maker: Self Financial Decision Maker: Self Functional status prior to admission: Independent Home Environment: Others in the home: sibling(s), other (see comments) (lives with his sister delmy and brother in law). Current Living Arrangements: home/apartment/condo. Accessibility Concerns: . Current Functional Ability: Completely Dependent DME used at home: none DME Needed at Discharge: No Patient is insured through: Primary Insurance: [employer] MANAGED MEDICARE Payor: [employer]GED MEDICARE / Plan: [employer] MANAGED MEDICARE PPO / Product Type: *No Product type* / Secondary Insurance: N/A Plan for discharge is: Pending Hospital Course and PT/OT Recommendations Outpatient Agency/Support Group Needs: None Home Health Services: Occupational Therapy, Physical Therapy, Registered Nurse Agency Referrals: [facility] [address] [address] Transportation: family or friend will provide Barriers to discharge: Global: Denies needs/concerns at this time Plan: Patient is not medically ready related to: patient is going to the OR today for a washout andremains on blowout precautions. Plan going forward is: when able patient will need to work with PT/OT Anticipated Date of Discharge: 10/10/2024 Penny ROSAS RN Phone: [phone] Pager: [phone] * Plan of Care - Heidi Mobley RN - 10/02/2024 6:41 AM EST OUTCOME EVALUATION NOTE: OUTCOME SUMMARY: Pt A&Ox4 on RA, pain controlled with scheduled tylenol. Patient medicated with melatonin with positive affect. Neurovasc checks remain on changed, reference flowsheets. Pt made NPO at midnight, mendez in place, adequate urine output. PLAN MOVING FORWARD: Q2 Neurovasc Blood sugar Q4 OR today * Plan of Care - Ever Moulton RN - 10/01/2024 6:32 AM EST Pt A&Ox4 on RA, pain controlled with scheduled meds. Neurovasc checks continued per orders, assessment remains unchanged. Mendez in place with increased urine output. Problem: Adult Inpatient Plan of Care Goal: Plan of Care Review Outcome: Ongoing (Interventions Implemented as Appropriate) Goal: Absence of Hospital-Acquired Illness or Injury Outcome: Ongoing (Interventions Implemented as Appropriate) Goal: Optimal Comfort and Wellbeing Outcome: Ongoing (Interventions Implemented as Appropriate) Goal: Readiness for Transition of Care Outcome: Ongoing (Interventions Implemented as Appropriate) * Plan of Care - Heidi Mobley RN - 09/30/2024 5:01 PM EST OUTCOME EVALUATION NOTE: OUTCOME SUMMARY: Pt A&Ox4 on RA, pain controlled with scheduled meds. MAPs >65, Neurovasc checks done per order, assessment remains unchanged - reference flowsheets. Mendez in place with adequate urine output. * Consult Note - Katelyn Oconnor [facility] - 09/30/2024 7:43 AM EST [facility] Pharmacokinetics Note Drug: Vancomycin Pharmacokinetic target: AUC24 (range) 400-600 mg/L.hr Current regimen: 1500 mg IV every 8 hours Geovanna Dixon is a(n) 49 years old male receiving Vancomycin 1500 mg IV every 8 hours for bacteremia Recent measured serum creatinine values: 09/29/2024 23:52 0.48 mg/dL 09/28/2024 23:51 0.52 mg/dL 09/27/2024 23:58 0.48 mg/dL Assessment: Analysis of the most recent level(s) using ubigrateRX gives the following patient-specific pharmacokinetic parameters: CL: 8.48 L/hr V: 56.9 L T1/2: 4.75 hours At this time we recommend continuing current regimen of 1500 mg IV every 8 hours, which is predicted to result in a steady-state trough of 13.4 mg/L and AUC24 of 528 mg/L.hr. Recommendations: - Vancomycin 1500 mg IV every 8 hours - Obtain Vancomycin level 3-5 days - Continue to monitor serum creatinine Katelyn Oconnor * Plan of Care - Candie Plata RN - 09/29/2024 6:30 PM EST OUTCOME SUMMARY: Pt down to OR~1400, returned ~1540. VSS on RA. Denies pain. Q1NV unchanged. PLAN MOVING FORWARD: Pain management as needed. OR Wednesday? * Op Note - Anabel Finney MD - 09/29/2024 2:41 PM EST [facility] Operative Note Patient Name: Geovanna Dixon Jr. : [id number] MR#: [id number] Case Date: 09/29/2024 Surgeon: Surgeons and Role: * Anabel Finney MD - Primary * Tato Aguirre MD - Fellow - Assisting Preoperative diagnosis: explanted LLE infected graft Postoperative diagnosis: explanted LLE infected graft Procedure(s) (LRB): @EXPLORATION W\O SURGICAL REPAIR, FEMORAL ARTERY - JENNIFER (WRVU 7.5) (Left) DEBRIDEMENT SKIN, SUBCU, MUSCLE, LOWER EXTREMITY (WRVU 2.7) (Left) Modifiers: 22: Increased procedural services Findings: One black and one white sponge removed from left groin incision. Wounds irrigated with copious sterile saline through red rubber catheter with evacuation of hematoma but no additional purulent fluid identified. Left sartorius flap re-mobilized and explored. Wound copiously irrigated. Flap inset with interrupted vicryl sutures. Superior aspect of the femoral incision closed with interrupted vicryls, cameron One white sponge placed deep in femoral wound followed by one black sponge. Most inferior wound at BK pop exposure site dressed with one white and black sponge. Penroses remained in place Anesthesia: General Estimated Blood Loss: 11 mL Specimens removed during surgery: None Drains: Wound vac Surgical Closure: Other Than Primary Closure - superficial layers are left completely open during original surgery, deep layers completely closed Disposition: awakened from anesthesia, extubated and taken to the recovery room in a stable condition, having suffered no apparent untoward event. Condition: doing well without problems (Please see the Surgical Encounter Summary for any Implant and Specimen details pertinent to this patient.) HPI/Surgical Indications: farheen Dixon Jr. is a 49 y.o. male with a history of HTN, HLD, NSTEMI, CAD s/p CABG (12/2011), DM, obesity, PAD s/p L iliofem endart and L fem-BK pop bypass and L 2nd toe amputation who was transferred from [facility] given concern for infected left fem-BK popliteal PTFE bypass. He is now s/p an explant of an infected left femoral-below knee popliteal artery bypass graft. Procedure Description: After informed consent was obtained, the patient was brought to the operating room, and placed on the operating room table in the supine position. General endotracheal anesthesia was induced. The patient's left lower extremity was prepped and draped in the usual sterile fashion. A timeout was performed. The wounds were explored with removal of the sponges as above. The groin incision was explored withevacuation of serous fluid and minimal purulence. The previously harvested sartorius flap appeared viable. It was gentle mobilized and explored. The area around the [employer]ING was irrigated copiously. The flap was then inset to cover the femoral vessels in their entirety using interrupted vicryl sutures. Attention was then turned to the more distal wounds. A red rubber catheter was used to copiously irrigate the skip incisions along the track of the previous PTFE bypass with removal of retained hematoma. The wounds were irrigated until the irrigant was fully clear. Hemostasis was excellent. We then turned our attention to the BK pop incision, this was also irrigated copiously and did not appear to have any reaccumulation of purulent material. The superior aspect of the groin incisionw as then closed with interrupted vicryl sutures and cameron. Cameron were also placed at the superior aspect of the BK pop incision. A white sponge covered by a black sponge was placed in the groin incision as well as in the BK pop incision and the vacs were placed to -75 mmHg and did maintain suction. The counter incisions were backed with wet to dry kerlix. The leg was then dressed with dry dressings. At the end of the case, all needle sponge and instrument counts were correct. The patient was awakened from anesthesia and taken to the post anesthesia care unit in good condition. Surgical Infection Prevention Bundle Used? N/A Tato Aguirre MD Vascular Surgery Attending Staff Attestation: Case Date: 09/29/2024 I was present and I participated during the entire procedure (does not need to include opening and closing). Anabel Finney MD 10/01/2024 * Care Management - Penny To RN - 09/29/2024 10:23 AM EST OFFICE OF CARE MANAGEMENT PROGRESS NOTE LOS: Hospital Day 3 days Chart reviewed, care reviewed with primary team and at interdisciplinary rounds. Medical Decision Maker: Self Financial Decision Maker: Self Functional status prior to admission: Independent Home Environment: Others in the home: sibling(s), other (see comments) (lives with his sister delmy and brother in law). Current Living Arrangements: home/apartment/condo. Accessibility Concerns: . Current Functional Ability: Completely Dependent DME used at home: none DME Needed at Discharge: No Patient is insured through: Primary Insurance: [employer] MANAGED MEDICARE Payor: [employer] MANAGED MEDICARE / Plan: [employer]GED MEDICARE PPO / Product Type: *No Product type* / Secondary Insurance: N/A Plan for discharge is: Pending Hospital Course and PT/OT Recommendations Outpatient Agency/Support Group Needs: None Home Health Services: Occupational Therapy, Physical Therapy, Registered Nurse Agency Referrals: [facility] [address] [place] [address] Transportation: family or friend will provide Barriers to discharge: Global: ICU Needs, Denies needs/concerns at this time ICU Needs: Q1 hour interventions Plan: Patient is not medically ready related to: patient went to the OR yesterday for a washout of his graft site, continues with Q1 hour neuro vascular checks, pain control, NPO for return to the ORagain today, ID consult, when able will need to work with PT/OT. Plan going forward is: patient will need to work with PT/OT. VNA is pended. Anticipated Date of Discharge: 10/04/2024 Penny ROSAS, RN CM Phone: [phone] Pager: [phone] * Consult Note - Rose Wright APRN - 09/29/2024 7:23 AM EST Images from the original note were not included. Vascular Surgery Progress Note Patient ID Geovanna Dixon Jr. is a 49 y.o. male with history of HTN, HLD, NSTEMI, CAD s/p CABG (12/2011), DM, obesity, PAD s/p L iliofem endart and L fem-BK pop bypass and L 2nd toe amputation who was transferred from [facility] given concern for infected left fem-BK popliteal PTFE bypass. At the OSH, he underwent CT LLE with contrast that demonstrated fluid surrounding the graft and he was initiated on vancomycinand cefepime. He was noted to have a lactate of 3.6. He stated that he noticed his left groin has some swelling and some drainage about a week ago that then extended down his leg over the course of the week. He stated that he presented to the clinic (unclear where) but was not given an antibiotic. Has continued to take aspirin as well as Xarelto for his bypass and stopped smoking 1 week ago. He presented to [facility] on 09/26 and went to the OR for an urgent washout and explant of the graft, with plans for serial return to the OR as indicated for definitive management. Prior vascular history 08/01/2024: Left iliofemoral endarterectomy and left femoral to below-knee popliteal artery bypass with 7mm ringed PTFE 07/19/2024: Left 2nd toe amputation Operations this hospitalization: 09/26/2024: explant of infected left femoral-below knee popliteal artery bypass graft 09/27/2024: Evacuation of abscess in left posterior thigh compartment via AK popliteal incision Irrigation of left groin and calf incision sites Anticoagulation: Xarelto, bypass patency Antiplatelet: Aspirin Active Hospital Problems Diagnosis Vascular graft infection, initial encounter Resolved Hospital Problems No resolved problems to display. Active Non-Hospital Problems Diagnosis 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 (SVG to PDA closed 08/2013) PAD (peripheral artery disease) Peripheral artery disease Critical limb ischemia of left lower extremity Diabetes mellitus Obesity NSTEMI (non-ST elevated myocardial infarction) HTN (hypertension) Hyperlipidemia Depression Narcolepsy Scheduled Medications: polyethylene glycoL (MIRALAX) oral powder 17 g Oral Daily insulin glargine (Lantus;Semglee) (100 unit/mL) subcutaneous injection 25 Units Subcutaneous BID vancomycin 1.5 g Intravenous Q8H insulin lispro 1-6 Units Subcutaneous Q4H JOSE insulin lispro 0-11 Units Subcutaneous TID WC acetaminophen 975 mg Oral Q6H JOSE atorvastatin 80 mg Oral QPM aspirin EC 81 mg Oral Daily methylphenidate 20 mg Oral TID pantoprazole EC 40 mg Oral Daily senna-docusate 2 tablet Oral BID venlafaxine XR 225 mg Oral Daily heparin (porcine) 5,000 Units Subcutaneous Q8H JOSE lidocaine 1 patch Transdermal Q24H 24 hour events/Subjective - NPO for possible wash out in OR - pain controlled - WBC 12.7 (17.5); Mg 0.72; K 3.2; hgb 8.5 (10.4)- no signs of bleeding - abscess/wound culture from 09/26 +MRSA- ID consulted, on vanc Objective BMI: Weight: 104.1 kg (229 lb 8 oz) (09/29/24 0000) BMI (Calculated): 32.36 BMI Classification: Obese Intake/Output Summary (Last 24 hours) at 09/29/2024 0727 Last data filed at 09/29/2024 0600 Gross per 24 hour Intake 2676 ml Output 3410 ml Net -734 ml Temp: [36.5 ??C (97.7 ??F)-36.9 ??C (98.4 ??F)] Heart Rate: [76-104] Resp: [13-25] BP: (122-130)/(80-81) SpO2: [92 %-99 %] Heart Rate from SpO2: [74 bpm-101 bpm] Physical Exam: GEN: Alert and appears stated age. Cooperative. In NAD. HEENT: Normocephalic and atraumatic. CV: Regular rate. Pulm: Breathing on room air. 96% Abd: Soft, non-distended, non-tender to palpation. Skin: Color, texture, turgor normal. No rashes or lesions. Neuro: No gross sensory or motor abnormality. Extremities: L groin incision site with abd pad with small to moderate serosanguinous drainage moreserous looking; no active bleeding, dressing replaced at bedside. Superior aspect of groin incisionwith yung drains, incision well-approximated with cameron, no erythema or edema. Calf incision c/ d/I, packed WTD covered with ABD pads and wrapped with kerlix Vascular: LLE DP and PT signals present Labs Last 3 wbc, hgb, hct plt Recent Labs 09/28/24 2351 09/27/24 2358 09/27/24 1755 WBC 12.76* 17.15* 19.38* HGB 8.5* 10.4* 11.0* HCT 24.7* 30.5* 31.6* PLATELET [phone] Microbiology Microbiology Results (last 7 days) Procedure Component Value - Date/Time Blood culture [[id number]] (Abnormal) Collected: 09/27/24 2133 Lab Status: Preliminary result Specimen: Blood, Venous Updated: 09/29/24 0721 Blood Culture Methicillin Resistant Staphylococcus aureus Gram Stain Aerobic Bottle: Gram positive cocci in clusters Blood culture [[id number]] (Abnormal) Collected: 09/26/24 1845 Lab Status: Preliminary result Specimen: Blood, Venous Updated: 09/29/24 0719 Blood Culture Methicillin Resistant Staphylococcus aureus Comment: isolated. Susceptibilities previously reported. Gram Stain Aerobic Bottle: Gram positive cocci in clusters Blood culture [[id number]] (Abnormal) (Susceptibility) Collected: 09/26/24 1422 Lab Status: Preliminary result Specimen: Blood, Venous Updated: 09/29/24 0717 Blood Culture Methicillin Resistant Staphylococcus aureus Comment: detected by PCR Isolate saved. If future testing is required, contact the Microbiology Senior Systems Developer. Gram Stain Aerobic Bottle: Gram positive cocci in clusters Susceptibility Methicillin Resistant Staphylococcus aureus VITEK 2 METHOD Clindamycin Resistant Gentamicin Susceptible [1] Linezolid Susceptible Oxacillin Resistant Trimethoprim/Sulfa Susceptible Vancomycin Susceptible [1] Gentamicin is not appropriate for monotherapy for gram-positive infections. AFB culture [[id number]] Collected: 09/27/241653 Lab Status: Preliminary result Specimen: Tissue from Thigh, Left Updated: 09/28/24 2226 Acid Fast Stain No acid fast bacilli seen Anaerobic Culture [[id number]] Collected: 09/27/241653 Lab Status: Preliminary result Specimen: Tissue from Thigh, Left Updated: 09/28/24 1355 Anaerobic Culture No anaerobic organisms isolated to date Sonicated Tissue/Implant Culture [[id number]] Collected: 09/26/24 1716 Lab Status: Preliminary result Specimen: Vascular Graft from Leg, Left Updated: 09/28/24 1323 Sonicated Tissue/Implant Culture Culture in progress Tissue Culture, Aerobic Only [[id number]] (Abnormal) Collected: 09/27/241653 Lab Status: Preliminary result Specimen: Tissue from Thigh, Left Updated: 09/28/24 1049 Tissue Culture Rare Staphylococcus aureus Gram Stain Few Neutrophils seen No microorganisms seen Abscess/Wound Aspirate Culture, Aerobic Only [[id number]] (Abnormal) (Susceptibility) Collected: 09/26/24 1702 Lab Status: Preliminary result Specimen: Abscess from Knee, Left Updated: 09/28/24 1039 Abscess/Wound Aspirate Culture Many Methicillin Resistant Staphylococcus aureus Gram Stain Many neutrophils Many Gram positive cocci Susceptibility Methicillin Resistant Staphylococcus aureus VITEK 2 METHOD Ciprofloxacin Susceptible Clindamycin Resistant Gentamicin Susceptible [1] Linezolid Susceptible Oxacillin Resistant Tetracycline Susceptible [2] Trimethoprim/Sulfa Susceptible Vancomycin Susceptible [1] Gentamicin is not appropriate for monotherapy for gram-positive infections. [2] Based on tetracycline susceptibility, this organism is considered susceptible to doxycycline. Abscess/Wound Aspirate Culture, Aerobic Only [[id number]] (Abnormal) (Susceptibility) Collected: 09/26/24 165 Lab Status: Preliminary result Specimen: Abscess from Groin, Left Updated: 09/28/24 1037 Abscess/Wound Aspirate Culture Many Methicillin Resistant Staphylococcus aureus Gram Stain Many neutrophils Many Gram positive cocci Susceptibility Methicillin Resistant Staphylococcus aureus VITEK 2 METHOD Ciprofloxacin Susceptible Clindamycin Resistant Gentamicin Susceptible [1] Linezolid Susceptible Oxacillin Resistant Tetracycline Susceptible [2] Trimethoprim/Sulfa Susceptible Vancomycin Susceptible [1] Gentamicin is not appropriate for monotherapy for gram-positive infections. [2] Based on tetracycline susceptibility, this organism is considered susceptible to doxycycline. Fungus culture [[id number]] Collected: 09/27/241653 Lab Status: Preliminary result Specimen: Tissue from Thigh, Left Updated: 09/28/24 0748 Fungus Culture No fungus isolated to date AFB culture [[id number]] Collected: 09/26/241701 Lab Status: Preliminary result Specimen: Abscess from Knee, Left Updated: 09/27/24 2335 Acid Fast Stain No acid fast bacilli seen MRSA PCR Screen [[id number]] (Abnormal) Collected: 09/27/24 0751 Lab Status: Final result Specimen: Swab from Nares Updated: 09/27/24 1156 MRSA PCR Detected Narrative: This test was performed using the Xpert MRSA NxG test kit and is run on the [employer] GeneXpert Dx System. This test is cleared by the U.S. Food and Drug Administration for clinical use and its performance characteristics have been verified by the [facility] at [facility]. Anaerobic Culture [[id number]] Collected: 09/26/241649 Lab Status: Preliminary result Specimen: Abscess from Groin, Left Updated: 09/27/24 1142 Anaerobic Culture No anaerobic organisms isolated to date Anaerobic Culture [[id number]] Collected: 09/26/241701 Lab Status: Preliminary result Specimen: Abscess from Knee, Left Updated: 09/27/24 1142 Anaerobic Culture No anaerobic organisms isolated to date Fungus culture [[id number]] Collected: 09/26/241649 Lab Status: Preliminary result Specimen: Abscess from Groin, Left Updated: 09/27/24 0727 Fungus Culture No fungus isolated to date Fungus culture [[id number]] Collected: 09/26/241701 Lab Status: Preliminary result Specimen: Abscess from Knee, Left Updated: 09/27/24 07 Fungus Culture No fungus isolated to date New Studies Results for orders placed or performed during the hospital encounter of 09/26/[address] Lower Extremity (Exam End: 09/26/2024 1:50 PM) Result Value WORKSTATION ID [id number] Impression 1. There is a left femoral bypass graft extending from the left common femoral artery below the inferior margin of the study. There is a large abscess surrounding the bypass graft and extending from the left common femoral artery along the entire visualized course of the bypass graft and extending below the inferior margin of the study. Findings are consistent with graft infection, but the inferior extent of infection is unknown. 2. Phase of contrast is not optimized to evaluate the patency of the left femoral bypass graft. There appears to be at least some degree of thrombus formation within the graft at multiple sites. Since the bypass graft also extends below the inferior margin of the study, the graft is incompletely evaluated. 3. Multiple enlarged left inguinal and [...] questions please contact the health director of health care marketing that requested your imaging first. Lower Extremity w Contrast Left (Exam End: 09/27/2024 9:16 AM) Result Value WORKSTATION ID [id number] Impression IMPRESSION: 1. Interval explant of LEFT femoral bypass graft with 2 open wounds and partial drainage of perigraft abscess. 2. A residual [...] questions please contact the health director of health care marketing that requested your imaging first. 09/28 ABIs Interpretation: RIGHT: No significant lower extremity arterial occlusive disease identified at rest. Normal ankle/brachial pressure ratios and ankle Doppler waveforms. No significant change compared to previous exam on 07/17/2024. LEFT: Severe lower extremity arterial occlusive disease. Toe waveform is absent. Significant deterioration compared to previous exam on 07/17/2024. Previous ABIs with change from previous value: Date RIGHT DP RIGHT PT RT GR TOE RT Sec TOE 1.10 1.17 0.88 ---- 1.10( .00) 1.11(-.06) 0.93(+.05) ---- Current 1.07(-.03) 1.16(+.05) 0.77(-.16) ---- Date LEFT DP LEFT PT LT GR TOE LT Sec TOE ---- ---- 0.24 ---- 0.55 0.57 0.38(+.14) ---- Current 0.30(-.25) 0.30(-.27) 0.00(-.38) ---- Assessment & Plan Geovanna Dixon Jr. is a 49 y.o. male with a history of HTN, HLD, NSTEMI, CAD s/p CABG (12/2011), DM,obesity, PAD s/p L iliofem endart and L fem-BK pop bypass and L 2nd toe amputation who was transferred from [facility] given concern for infected left fem-BK popliteal PTFE bypass. He is now s/p an explantof an infected left femoral-below knee popliteal artery bypass graft as well as a return to the OR f or an I&D. Significant purulence under pressure was seen intraoperatively, surrounding the entire bypass at proximal and distal anastomoses as well as the tunnel. There are retained grafts left at proximal and distal anastomoses and a Yung drain placed from left groin to left thigh. Patient on list for possible OR today for wash out. Pain is controlled at this time. Hgb 8.5 from 10.4 today no signs of bleeding continue to monitor. Of note, all of his graft is out. ID will be notified to make aware. Per attending, daily BC until cleared. 09/29/24 Recommendations today: replete K and Magnesium, NPO for OR. Daily BC until clear. - NPO for OR today - ABIs t111/28 - CTA with lower extremity- done - Bedrest - daily BC until clear - Maintain FC - Vancomycin (09/26--); zosyn (09/26-09/28) - Continue aspirin and statin - Tylenol, PRN oxy for pain control - ID consulted, appreciate recs - DM management consulted, appreciate recs - Daily labs, replete PRN goal K 4.0; Mg 1.0 - SQH ppx - ISS Rose Wright APRN Vascular Surgery 09/29/24 [id number] * Plan of Care - Candie Plata RN - 09/28/2024 6:25 PM EST OUTCOME SUMMARY: Prop gtt titrated to RASS goal, see MAR. Vent settings weaned as tolerated, see flowsheet. PLAN MOVING FORWARD: OR? * Plan of Care - Candie Plata RN - 09/28/2024 6:23 PM EST OUTCOME SUMMARY: Pt taken down to OR for washout ~1120, returned ~1653. VSS on RA. Q1 remained unchanged until 1100. Once pt returned for OR, PT on LLE present on doppler. PLAN MOVING FORWARD: Pain management as needed. OR tomorrow. * Op Note - Hayley Torres MD - 09/28/2024 12:23 PM EST [facility] [place] Operative Note Patient Name: Geovanna Dixon Jr. : [id number] MR#: [id number] Case Date: 09/28/2024 Surgeon: Surgeons and Role: * Hayley Torres MD - Primary * Ken Moeller MD - Resident - Assisting * Anabel Finney MD - Assisting Attending Preoperative diagnosis: Infected explanted left leg bypass graft Postoperative diagnosis: Infected explanted left leg bypass graft Procedure: LEFT great saphenous vein harvest Removal of left common femoral and below knee popliteal artery PFTE graft willard and common femoral bovine pericardial patch Vein patch angioplasty of LEFT common femoral artery and below-knee popliteal artery Rotational sartorius muscle flap placement over LEFT femoral artery Excisional debridement, washout, and LEFT groin wound VAC placement Modifiers: 22: Increased procedural services Findings: - Significant inflammation and scarring around femoral and below-knee popliteal arteries making extremely dissection challenging. - Prior bovine pericardial patch and PTFE willard over the [employer] was unincorporated. - Resection of prior femoral patch and PTFE graft hoods at femoral and below- knee popliteal arteries, and patch angioplasty with harvested left great saphenous vein. - Sartorius flap mobilized to cover the left femoral artery with RAY drain placed in potential space. - Significant thrombus in prior bypass graft tunnels irrigated out. - One white and one black sponge in left groin, and VAC attached to -75 mmHg suction. - Doppler signal in left PT on case completion. Anesthesia: General Estimated Blood Loss: 150 mL Specimens removed during surgery: ID Type Source Tests Collected by Time Destination 1 : Left femoral proximal graft Order Booker Leg, Left SURGICAL PATHOLOGY Hayley Torres MD 09/28/2024 1410 2 : Left distal BK pop graft Order Booker Leg, Left SURGICAL PATHOLOGY Hayley Torres MD 09/28/2024 1417 Drains: RAY drain in left groin to bulb suction, wound VAC in left groin to -75 mmHg suction Surgical Closure: Other Than Primary Closure - superficial layers are left completely open during original surgery, deep layers completely closed Disposition: awakened from anesthesia, extubated and taken to the recovery room in a stable condition, having suffered no apparent untoward event. Condition: doing well without problems (Please see the Surgical Encounter Summary for any Implant and Specimen details pertinent to this patient.) HPI/Surgical Indications: 49M with history of a left [employer]-BK popliteal artery bypass with PTFE performed in July 2024 for a left second toe wound presenting with an infected LLE bypass graft. This graft was partially explanted on 09/26 with significant purulent fluid removed and blood cultures growing MRSA. He presents today for repeat LLE debridement, washout, and complete removal of his prior PTFE bypass graft hoods and femoral bovine pericardial patch after discussion of r/b/a. Procedure Description: After informed consent was obtained the patient was brought back to the operating room and placed supine on the OR table. General anesthesia was induced and the patient was intubated with an ETT. Additional support lines (arterial line, PIVs) were placed. Preoperative antibiotics were given. A timeout was performed. Attention was then turned to the patient's LEFT leg, and the packing from the four prior leg wounds was removed. One white sponge was removed from the left groin wound. The great saphenous vein in the medial left thigh was marked using ultrasound, and we marked a branch of the great saphenous vein in an attempt to preserve future use of the remaining GSV as conduit for revascularization. The left leg was prepped and draped in sterile fashion with beta-dine. We first proceeded to irrigate all four wounds copiously with sterile saline. The PTFE hoods of thepreviously explanted bypass graft were visualized at the proximal and distal anastomoses. We turnedour attention to the left groin, and subcutaneous tissue and dense scar tissue was divided with a combination of electrocautery and sharp dissection with metzenbaums. The left groin was significantlyscarred with dense, adherent tissue given the recency of his bypass surgery. After significant dissection and time, ultimately, the distal external iliac artery, common femoral artery with prior PTFEbypass graft, profunda femoris, and superficial femoral artery were circumferentially dissected and encircled with vessel loops. The prior bovine pericardial patch was noted to be completely unincorporated at this time. In similar fashion, our attention was then turned below the knee and the previous medial calf woundwas explored. Subcutaneous tissue and dense scar tissue was divided with a combination of electrocautery and sharp dissection with metzenbaums, in a similarly challenging fashion given the recency ofhis prior bypass graft. Ultimately, the below-knee popliteal artery proximal to and distal to the prior distal anastomosis were circumferentially dissected and encircled with vessel loops. Next, the great saphenous vein in the medial thigh which had been marked preoperatively was longitudinally incised with a #15 blade scalpel. The subcutaneous tissues overlying the vein were divided with a combination of electrocautery and sharp dissection with metzenbaum scissors. The GSV was dissec nabeel free from all surrounding tissues. All branches were doubly ligated with silk and sharply divided. The vein appeared adequate in caliber and quality and a 3-mm coronary dilator was able to be passed through the vein easily. The vein was opened longitudinally and all valves were identified and sharply removed. The vein was placed in vein solution. Systemic heparin was administered. Next, the [employer], SFA, and DFA were clamped. An 11-blade scalpel was used to excise the PTFE graft willard and the prior bovine pericardial patch, and all prior Prolene sutures were removed. Residual plaque in the arterial lumen was removed using a Bradley elevator. The harvested vein patch was cut to sizeand sewn as a patch angioplasty using 6-0 prolene in a running fashion. The artery was flushed to remove debris prior to completion of the anastomosis. The clamps were removed and hemostasis was satisfactory. Next, the below-knee popliteal artery was clamped proximally and distally. The prior PTFE bypass graft willard was sharply excised with an 11-blade scalpel and all prior Prolene sutures were rem emmanuelle. The harvested vein patch was cut to size and sewn as a patch angioplasty using 6-0 prolene saleem running fashion. The artery was flushed to remove debris prior to completion of the anastomosis. The clamps were removed and hemostasis was satisfactory. A Doppler probe was used to confirm preserved flow and normal waveforms through the SFA, DFA, and below-knee popliteal artery. Protamine was administered. Next, the subcutaneous tissues over the lateral thigh were incised and the dissection was carried out down to the lateral border of the sartorius muscle. The muscle was fully mobilized along the lateral edge up to its insertion at the anterior superior iliac spine. Significant scarring was noted along the course of the muscle and redundant scar tissue was excised. The insertion was incised at thelevel of the lateral tendinous attachments. The muscle at the distal aspect of the incision was similarly mobilized towards the midline with division of the first railroad dining car steward/stewardess, such that the sartorius muscle was free enough to cover the vein patch. The muscle was then secured to the subcutaneous tissues of the medial aspect of the incision with 3-0 Vicryl stitches, with full coverage of the vesselsincluding the vein patch. The lateral aspect of the wound contained space where the sartorius muscle formerly was, and a flat RAY drain was placed in this potential space. Hemostasis at the vein patch sites was obtained with thrombin-soaked gelfoam, Surgicel, and electrocautery, and was satisfactory. All wounds were copiously irrigated and the tunnels from the prior bypass graft were irrigated below the Hooper drains. Significant thrombus burden was expelled in thisprocess. Vancomycin paste was placed in all four wounds. The medial thigh GSV harvest site was closed with cameron. One white sponge and one black sponge were placed in the left groin wound, and connected to -75 mmHg suction. The drain in the left groin wound was attached to bulb suction. The remaining three wounds were packed with iodine-soaked Kerlix gauze and dressed with ABD pads. The entire l eft leg was wrapped in dry Kerlix gauze. The patient was awoken, extubated and taken to PACU in stable condition. All sponge and needle counts were correct at the conclusion of the case. Doppler signals in the left DP and PT were present oncase completion. Dr. Torres, the attending surgeon of record, was present and scrubbed for the duration of the procedure. Surgical Infection Prevention Bundle Used? Yes Infection present at time of surgery? Yes. Pus or purulence seen Pre-operative IV antibiotics: Ceftriaxone Vascular Surgery Attending Staff Attestation: Case Date: 09/28/2024 I was present and I participated during the entire procedure (does not need to include opening and closing). Hayley Torres MD 10/04/2024 * Brief Op Note - Hayley Torres MD - 09/28/2024 12:23 PM EST [facility] [place] Operative Note Patient Name: Geovanna Dixon Jr. : [id number] MR#: [id number] Case Date: 09/28/2024 Surgeon: Surgeons and Role: * Hayley Torres MD - Primary * Ken Moeller MD - Resident - Assisting * Anabel Finney MD - Assisting Attending Preoperative diagnosis: infected explanted left leg bypass graft Postoperative diagnosis: infected explanted left leg bypass graft Procedure: LEFT great saphenous vein harvest Removal of left common femoral and below knee popliteal artery PFTE graft willard and common femoral bovine pericardial patch Vein patch angioplasty of LEFT common femoral artery and below-knee popliteal artery Rotational sartorius muscle flap placement over LEFT femoral artery Excisional debridement, washout, and LEFT groin wound VAC placement Findings: - Significant scarring around femoral and below-knee popliteal arteries making dissection challenging. - Prior bovine pericardial patch over the [employer] was unincorporated. - Resection of prior femoral patch and PTFE graft hoods at femoral and below- knee popliteal arteries, and patch angioplasty with harvested left great saphenous vein. - Sartorius flap mobilized to cover the left femoral artery with RAY drain placed in potential space. - Significant thrombus in prior bypass graft tunnels irrigated out. - One white and one black sponge in left groin, and VAC attached to -75 mmHg suction. - Doppler signal in left PT on case completion. Anesthesia: General Heparin: 14,000 units Protamine: 40 mg Estimated Blood Loss: 150 mL IV Fluids: 1,300 mL Urine Output: 600 mL Specimens removed during surgery: None Drains: RAY drain in left groin to bulb suction, wound VAC in left groin to -75 mmHg suction Surgical Closure: Other Than Primary Closure - deep and superficial layers are left completely openduring original surgery Disposition: awakened from anesthesia, extubated and taken to the recovery room in a stable condition, having suffered no apparent untoward event. Condition: doing well without problems (Please see the Surgical Encounter Summary for any Implant and Specimen details pertinent to this patient.) Surgical Infection Prevention Bundle Used? No * Consult Note - Tea Nguyen, [facility] - 09/28/2024 9:23 AM EST Drug: Vancomycin Pharmacokinetic target: AUC24 (range) 400-600 mg/L.hr Current regimen: 1250 mg IV every 8 hours Geovanna Dixon is a 49 year old male receiving vancomycin 1250 mg IV every 8 hours for bacteremia/graft infection Recent measured serum creatinine values: 09/27/2024 23:58 0.48 mg/dL 09/27/2024 00:01 0.45 mg/dL 09/26/2024 14:39 0.55 mg/dL Assessment: Analysis of the most recent level(s) using [employer] gives the following patient-specific pharmacokinetic parameters: CL: 8.7 L/hr V: 57.9 L T1/2: 4.79 hours Using these values, the current regimen of vancomycin 1250 mg IV every 8 hours is predicted to result in a steady-state trough of 10.8 mg/L and AUC24 of 429 mg/L.hr. At this time we recommend a regimen of 1500 mg IV every 8 hours, which is predicted to result in a steady-state trough of 13.3 mg/L and AUC24 of 513 mg/L.hr. Recommendations: - Vancomycin 1500 mg IV every 8 hours - Obtain vancomycin level 09/30 - Continue to monitor serum creatinine Tea Nguyen * Plan of Care - Mariya Shi V RN - 09/27/2024 11:25 PM EST OUTCOME EVALUATION NOTE: OUTCOME SUMMARY: A&O x4 and follows command in all extremities. Pain in LLE managed with scheduled and PRN meds-see JAN. Q1 neurovascular completed- LLE DP/ PT doppler signal absent, team aware. HR ranged from 90-110 NSR-ST. MAP > 65 maintained without intervention. Resp gautam pt on RA. Pt had adequate UO throughout the shift, see flowsheets. No BM. Pt is on carb controlled diet- NPO at midnight for OR 09/28. Blood cultures done Mg and potassium replaced per protocol LLE dressing changed due to increase in drainage- team aware and assessed at bedside ECHO done at bedside PLAN MOVING FORWARD: Q2 VS and I/0S Q4 BS Q1 neurovascular checks OR 09/28 INDIVIDUALIZED FALL PREVENTION INTERVENTIONS: Patient-specific fall risk factors per assessment: [current deficits]: ICU environment, lines and drains, generalized weakness Assistance [level of assistance required for transfers and ambulation]: 2-assist Supervision [direct monitoring required during toileting and ADLs]: hands on Surveillance [continuous indirect monitoring]: ICU monitoring, tele, spo2, hourly rounding Patient-specific fall prevention interventions for sensory deficits provided, if applicable: CARE PLAN GOAL OUTCOME EVALUATION: Problem: Adult [...] Outcome: Ongoing (Interventions Implemented as Appropriate) * Brief Op Note - Cristino Meeks MD - 09/27/2024 8:15 PM EST Brief Operative Note Patient Name: Geovanna Dixon Jr. : [id number] MR#: [id number] Case Date: 09/27/2024 Surgeon: Surgeons and Role: * Hayley Torres MD - Primary * Cristino Meeks MD - Resident - Assisting * Anabel Finney MD - Assisting Attending Preoperative diagnosis: Infected explanted left leg bypass graft Postoperative diagnosis: Infected explanted left leg bypass graft Procedure(s) (LRB): DEBRIDEMENT SKIN AND SUBCU, LOWER EXTREMITY (WRVU 1.01) (Left) Evacuation of abscess in left posterior thigh compartment via AK popliteal incision Irrigation of left groin and calf incision sites Anesthesia: General Findings: Left groin 1 white sponge removed and left groin PTFE cuff and patch appeared to be intact. Left calf incision site Kerlix removed and PTFE cuff noted to be intact. Left AK popliteal incision made and thigh explored via blunt dissection to abscess pocket that was at the posterior thigh compartment, which 100cc of purulent fluid was evacuated, tissue culture sent. Tissue in groin and calf incision site appeared to be less infected, albeit purulent fluid continued to accumulate until abscess pocket was evacuated. 2x new yung drains placed that connected AK popliteal site incision with groin (1x drain there) and calf incision (1x drain there). Left groin site had vancomycin paste and 1 white sponge placed. Tunnels had vancomycin paste injected. Incision sites packed with betadine Kerlix then ABD then leg wrapped in Kerlix. Complications: None Estimated Blood Loss: 50 mL* No values recorded between 09/27/2024 4:27 PM and 09/27/2024 5:22 PM * Specimens removed during surgery: ID Type Source Tests Collected by Time Destination A : LEFT THIGH ABCESS CAVITY TISSUE Tissue Thigh, Left FUNGUS CULTURE, TISSUE CULTURE, AFB CULTURE,TISSUE CULTURE, AEROBIC & ANAEROBIC Hayley Torres MD 09/27/2024 8032 Fluids: Intraprocedure Crystalloid Total None PRBCs: none (See Anesthesia Record/Report for Other Blood Products) Urine Output: (no urine output recorded) Drains: 2x new yung drains, 1x prior yung drain Disposition: extubated in the OR and taken directly to the ICU in a stable, but guarded condition. Condition: doing well without problems (Please see the Surgical Encounter Summary for any Implant and Specimen details pertinent to this patient.) Surgical Infection Prevention Bundle Used? N/A * Plan of Care - Pamela Eli RN - 09/27/2024 6:38 PM EST OUTCOME EVALUATION NOTE: OUTCOME SUMMARY: Pt A/Ox4, placed on RA this morning. Q1 neurovascular checks completed; LLE DP doppler signal absent, team aware (PT doppler signal intact). Pt denies decreased sensation or tingling in LLE. Mendez patent and draining. PRN pain medications utilized. L groin dressing changed x1 this shift, serosanguineous. RTOR in afternoon, returns to unit extubated, LLE dressings CDI. LLE DP and PT doppler signals now absent, vascular and primary team aware. PLAN MOVING FORWARD: Q1 neurovasc checks Q4 glucose checks Dressing changes PRN RTOR 09/28 Problem: Adult Inpatient Plan of Care Goal: [...] Implemented as Appropriate) * Op Note - Hayley Torres MD - 09/27/2024 4:27 PM EST [facility] [place] Operative Note Patient Name: Geovanna Dixon Jr. : [id number] MR#: [id number] Case Date: 09/26/2024 Surgeon: Surgeons and Role: * Hayley Torres MD - Primary * Dolly Dan MD - Resident - Assisting * Ken Moeller MD - Resident - Assisting Preoperative diagnosis: infected left femoral to below knee bypass graft Postoperative diagnosis: infected left femoral to below knee bypass graft Procedure: Explant of infected LEFT femoral-below knee popliteal artery bypass graft Incision and drainage of abscess left thigh and calf Debridement of fat and subcutaneous tissues left leg Findings: Significant purulence under pressure surrounding entire bypass at proximal and distal anastomoses as well as the tunnel. Femoral artery and BK popliteal artery intact. Cuffs of PTFE graft left at proximal and distal anastomoses with Prolene tag on latter. Yung drain placed from left groin to left thigh. Doppler signals in left DP and PT on case completion. Wound culture from left groin and left calf incision sent. Anesthesia: General Estimated Blood Loss: 50 mL Specimens removed during surgery: ID Type Source Tests Collected by Time Destination A : Left Groin Fluid Abscess Groin, Left FUNGUS CULTURE, ABSCESS/WOUND ASP CULTURE, AEROBIC AND ANAEROBIC Hayley Torres MD 09/26/2024 1650 B : Abscess Knee, Left FUNGUS CULTURE, AFB CULTURE, ABSCESS/WOUND ASP CULTURE, AEROBIC AND ANAEROBIC Hayley Torres MD 09/26/2024 1702 Drains: Hooper drain between left groin to left thigh Surgical Closure: Other Than Primary Closure - deep and superficial layers are left completely openduring original surgery Disposition: awakened from anesthesia, extubated and taken to the recovery room in a stable condition, having suffered no apparent untoward event. Condition: doing well without problems (Please see the Surgical Encounter Summary for any Implant and Specimen details pertinent to this patient.) HPI/Surgical Indications: 49M with history of left [employer]-BK popliteal artery bypass graft with PTFE (July 2024) for left foot tissue loss now presenting with infected bypass graft. Plan for LEFT lower extremity bypass graft explant, other procedures as indicated. Procedure Description: Geovanna Dixon Jr. was brought to the operating room and placed in supine position on the operating room table. A time out was performed to confirm the patient's identity, informed consent, and medical record number, which were all correct. He received a dose of antibiotics within 30 minutes of the incision for SSI prophylaxis as well as an SCD to his right bilateral lower extremity for DVT prophylaxis. All pressure points were appropriately padded and active re-warming measures were taken. There was no indication for additional beta blockade. After the completion of the time out, the patient underwent the uneventful induction of general anesthesia. The abdomen from the umbilicus to the bilateral groins as well as the entire LEFT leg were prepped with chlorhexidine and draped in the usual sterile fashion. A longitudinal incision was madeoverlying the left groin along the prior healed incision with immediate evacuation of significant purulence under pressure. A wound culture of this fluid was sent. The dissection was carried down through the subcutaneous tissues and necrotic lymph nodes were ligated with 2-0 silk ties. The bypass graft was minimally incorporated proximally and was circumferentially dissected. The femoral artery was intact. The graft was clamped proximally and distally and transected, and an approximately 1 cm stump of PTFE cuff was left on the femoral artery. This cuff was oversewn with a 4-0 Prolene suture in Sugar fashion and clipped with a large clip. Next, a longitudinal incision was made overlying the left medial calf along the prior incision, anddissection was similarly carried down through the subcutaneous tissues. The distal bypass graft andthe distal anastomosis were visualized and the below-knee popliteal artery was noted to be hemostatic. A wound culture of purulence at this level was sent. The PTFE graft was transected at this levelwith a 1 cm PTFE cuff, which was clipped with two large clips. A long tail of Prolene suture was left on the PTFE cuff for ease of future identification. Significant purulence was expressible from the thigh along the bypass graft tract, which was noted to be tunneled very posteriorly and intramuscularly. A longitudinal incision was made along the leftmedial distal thigh and dissection was carried down through the subcutaneous tissues. The sartoriusmuscle was identified and reflected medially, and the prior tract of the bypass graft was visualized with purulence evacuated. The SFA had a palpable pulse at this level. The purulent cavity was evacuated at this level and purulence along the tunnel was milked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 EST POC, GLUCOSE Routine 10/04/2024 12:01 AM EST POC, GLUCOSE Routine 10/03/2024 7:56 PM EST POC, GLUCOSE Routine 10/03/2024 5:29 PM EST POC, GLUCOSE Routine 10/03/2024 12:54 PM EST POC, GLUCOSE Routine 10/03/2024 7:59 AM EST POC, GLUCOSE Routine 10/03/2024 5:32 AM EST POC, GLUCOSE Routine 10/03/2024 4:16 AM EST POC, GLUCOSE Routine 10/03/2024 2:02 AM EST CBC (WITH DIFF) Routine 10/03/2024 12:27 AM EST PHOSPHORUS Routine 10/03/2024 12:27 AM EST MAGNESIUM Routine 10/03/2024 12:27 AM EST BASIC METABOLIC PANEL Routine 10/03/2024 12:27 AM EST POC, GLUCOSE Routine 10/03/2024 12:13 AM EST POC, GLUCOSE Routine 10/02/2024 8:17 PM EST POC, GLUCOSE Routine 10/02/2024 6:22 PM EST POC, GLUCOSE Routine 10/02/2024 5:01 PM EST POC, GLUCOSE Routine 10/02/2024 3:05 PM EST Debridement Muscle And Fascia 20 Sq Cm/< (02224) 10/02/2024 1:28 PM EST Infected LLE graft explant DEBRIDEMENT SKIN, SUBCU, MUSCLE, LOWER EXTREMITY Routine 10/02/2024 12:36 PM EST POC, GLUCOSE Routine 10/02/2024 11:12 AM EST POC, GLUCOSE Routine 10/02/2024 8:12 AM EST POC, GLUCOSE Routine 10/02/2024 4:19 AM EST CBC (WITH DIFF) STAT 10/02/2024 12:41 AM EST PHOSPHORUS Routine 10/02/2024 12:41 AM EST MAGNESIUM Routine 10/02/2024 12:41 AM EST BASIC METABOLIC PANEL STAT 10/02/2024 12:41 AM EST POC, GLUCOSE [...] POC, GLUCOSE Routine 10/01/2024 4:25 AM EST SCAN, PERIPHERAL BLOOD FABIO 2:02 AM EST CBC (WITH DIFF) STAT 10/01/2024 2:02 AM EST PHOSPHORUS Add-On 10/01/2024 2:02 AM EST MAGNESIUM Routine 10/01/2024 2:02 AM EST BASIC METABOLIC PANEL STAT 10/01/2024 2:02 AM EST POC, GLUCOSE Routine 10/01/2024 12:32 AM EST POC, GLUCOSE Routine 09/30/2024 7:37 PM EST POC, GLUCOSE Routine 09/30/2024 4:29 PM EST POC, GLUCOSE Routine 09/30/2024 12:16 PM EST POC, GLUCOSE Routine 09/30/2024 7:58 AM EST POTASSIUM Routine 09/30/2024 6:27 AM EST VANCOMYCIN, TROUGH Timed 09/30/2024 6: 27 AM EST POC, GLUCOSE Routine 09/30/2024 3:51 AM EST CBC (WITH DIFF) STAT 09/29/2024 11:52 PM EST MAGNESIUM Routine 09/29/2024 11:52 PM EST BASIC METABOLIC PANEL STAT 09/29/2024 11:52 PM EST POC, GLUCOSE [...] Debridement Muscle And Fascia 20 Sq Cm/< ([id number]) 09/29/2024 2:06 PM EST explanted LLE infected graft Exploration Not Followed By Surg Lower Extremity Artery ([id number]) 09/29/2024 2:06 PM EST explanted LLE infected graft POC, GLUCOSE Routine 09/29/2024 11:49 AM EST INCISION & DRAINAGE ABSCESS OR HEMATOMA, THIGH, KNEE SUPERFICIAL Routine 09/29/2024 11:03 AM EST INCISION & DRAINAGE, LEG OR ANKLE, DEEP ABSCESS OR HEMATOMA Routine 09/29/2024 11:02 AM EST POC, GLUCOSE Routine 09/29/2024 7:53 AM EST POC, GLUCOSE Routine 09/29/2024 3:45 AM EST CBC (WITH DIFF) STAT 09/28/2024 11:51 PM EST MAGNESIUM Routine 09/28/2024 11:51 PM EST HEMOGLOBIN A1C Add-On 09/28/2024 11:51 PM EST BASIC METABOLIC PANEL STAT 09/28/2024 11:51 PM EST POC, GLUCOSE Routine 09/28/2024 11:45 PM EST POC, GLUCOSE Routine 09/28/2024 10:00 PM EST POC, GLUCOSE Routine 09/28/2024 7:51 PM EST BLOOD CULTURE Routine 09/28/2024 5:49 PM EST EXCISION OF INFECTED GRAFT FROM LOWER EXTREMITY Routine 09/28/2024 5:33 PM EST FLAP, PEDICLE,W OR W/O TRANSFER, LEGS Routine 09/28/2024 5:32 PM EST HARVEST SAPHENOUS VEIN Routine 4 5:32 PM EST POC, GLUCOSE Routine 09/28/2024 4:42 PM EST BLOOD GAS ARTERIAL POC Routine 3:16 PM EST SURGICAL PATHOLOGY Routine 09/28/2024 2: 10 PM EST Excision, Infec Graft, Extremity ([id number]) 09/28/2024 11:28 AM EST Infected explanted left leg bypass graft Form Skin Pedicle Flap Scalp, Arm, Leg ([id number]) 09/28/2024 11:28 AM EST Infected explanted left leg bypass graft Unlisted Procedure Vascular Surgery ([id number]) 09/28/2024 11:28 AM EST Infected explanted left leg bypass graft Revision Femoral Anast Bpg Groin Open W/Nonautog Patch Graft ([id number]) 09/28/2024 11:28 AM EST Infected explanted left [...] POC, GLUCOSE Routine 09/28/2024 3:54 AM EST CBC (WITH DIFF) STAT 09/27/2024 11:58 PM EST MAGNESIUM Routine 09/27/2024 11:58 PM EST BASIC METABOLIC PANEL STAT 09/27/2024 11:58 PM EST POC, GLUCOSE [...] EST I&D Deep Abscess Bursa/Hematoma Thigh/Knee Region ([id number]) 09/27/2024 3:45 PM EST Infected explanted left leg bypass graft Drain Lower Leg Deep Absc/Hematoma ([id number]) 09/27/2024 3:45 PM EST Infected explanted left leg bypass graft Excision, Infec Graft, Extremity (24542) 09/27/2024 3:45 PM EST Infected explanted left leg bypass graft Debridement, Skin, Sub-Q Tissue ([id number]) 09/27/2024 3:45 PM EST Infected explanted left leg bypass graft POC, GLUCOSE Routine 09/27/2024 3:23 PM EST POC, GLUCOSE Routine 09/27/2024 11:29 AM EST DEBRIDEMENT SKIN AND SUBCU, LOWER EXTREMITY Routine 09/27/2024 11:[address] LOWER EXTREMITY W CONTRAST LEFT STAT 09/27/2024 9:16 AM EST POC, GLUCOSE Routine 09/27/2024 7:51 AM EST MRSA PCR SCREEN Routine 09/27/2024 7:51 AM EST POTASSIUM Routine 09/27/2024 7:51 AM EST POTASSIUM Routine 09/27/2024 5:05 AM EST POC, GLUCOSE Routine 09/27/2024 3:52 AM EST POC, GLUCOSE Routine 09/27/2024 1:59 AM EST CBC (WITH DIFF) STAT 09/27/2024 12:01 AM EST MAGNESIUM Routine 09/27/2024 12:01 AM EST BASIC METABOLIC PANEL STAT 09/27/2024 12:01 AM EST POC, GLUCOSE Routine 09/26/2024 11:59 PM EST POC, GLUCOSE Routine 09/26/2024 7:34 PM EST BLOOD CULTURE STAT 09/26/2024 6:45 PM EST SONICATED TISSUE/IMPLANT CULTURE Routine 09/26/2024 5:16 PM EST ANAEROBIC CULTURE STAT 09/26/2024 5:0 2 PM EST ABSCESS/WOUND ASP CULTURE, AEROBIC AND ANAEROBIC STAT 09/26/2024 5:02 PM EST AFB CULTURE STAT 09/26/2024 5:02 PM EST ABSCESS/WOUND ASPIRATE CULTURE STAT 09/26/2024 5:02 PM EST FUNGUS CULTURE STAT 09/26/2024 5:02 PM EST ANAEROBIC CULTURE STAT 09/26/2024 4:5 0 PM EST ABSCESS/WOUND ASP CULTURE, AEROBIC AND ANAEROBIC STAT 09/26/2024 4:50 PM EST ABSCESS/WOUND ASPIRATE CULTURE STAT 09/26/2024 4:50 PM EST FUNGUS CULTURE STAT 09/26/2024 4:50 PM EST BLOOD GAS ARTERIAL POC Routine 4:43 PM EST POC, GLUCOSE Routine 09/26/2024 4:29 PM EST I&D Deep Abscess Bursa/Hematoma Thigh/Knee Region ([id number]) 09/26/2024 3:52 PM EST left infected femoral to below knee bypass graft Drain Lower Leg Deep Absc/Hematoma ([id number]) 09/26/2024 3:52 PM EST left infected femoral to below knee bypass graft Excision, Infec Graft, Extremity ([id number]) 09/26/2024 3:52 PM EST left infected femoral to below knee bypass graft BLOOD GAS VENOUS POC Routine 09/26/2024 3:28 PM EST EXCISION OF INFECTED GRAFT FROM LOWER EXTREMITY Routine 09/26/2024 2:46 PM EST ABORH RECHECK (PATIENT HISTORY FOUND) Routine 09/26/2024 2:39 PM EST SCAN, PERIPHERAL BLOOD STAT 2:39 PM EST HC PARTIAL THROMBOPLASTIN TIME STAT 09/26/2024 2:39 PM EST PROTHROMBIN TIME STAT 09/26/2024 2:39 PM EST FIBRINOGEN STAT 09/26/2024 2:39 PM EST CBC (WITH DIFF) STAT 09/26/2024 2:39 PM EST TYPE AND SCREEN ([facility]/CGP/BABITA) STAT 09/26/2024 2:39 PM EST PHOSPHORUS STAT 09/26/2024 2:39 PM EST MAGNESIUM STAT 09/26/2024 2:39 PM EST HEPATIC FUNCTION PANEL Add-On 2:39 PM EST BASIC METABOLIC PANEL STAT 09/26/2024 2:39 PM EST POC, GLUCOSE Routine 09/26/2024 2:36 PM EST BLOOD CULTURE STAT 09/26/2024 2:22 PM EST REQUEST FOR 2ND READ CT LOWER EXTREMITY Routine 09/26/2024 1:50 PM EST HELEN complete wo contrast (22034) nstemi afib documented in this encounter Results * (ABNORMAL) Comprehensive metabolic panel Non-fasting (10/16/2024) Glucose Lvl - External 124(H) [facility] Blood Urea Nitrogen - External 17 [facility] Creatinine - External 0.9 [facility] EGFR - External 104.05 [facility] Anion Gap - External 11.6(H) [facility] Sodium - External 141 [facility] Potassium - External 4.3 [facility] Chloride - External 103 [facility] CO2 - External 26.4 [facility] Calcium - External 9.0 [facility] Protein, Total - External 6.9 [facility] Albumin - External 3.0(L) [facility] Total Bilirubin - External 0.20 [facility] Alk Phos - External 124(H) [facility] AST (SGOT) - External 12 [facility] ALT (SGPT) - External 22 [facility] Blood VENOUS BLOOD SPECIMEN / Unknown 10/16/2024 Amaya Hernandez MD CHEMISTRY ORDERABLES Performing Organization Address City/[facility] Co de Phone Number [address] [phone] * CK (10/16/2024) CK, Total - External 39 [facility] Blood VENOUS BLOOD SPECIMEN / Unknown 10/16/2024 Amaya Hernandez MD CHEMISTRY ORDERABLES Performing Organization Address City/[facility] Co de Phone Number [address] [phone] * (ABNORMAL) CBC (with Diff) (10/16/2024) WBC - External 10.99(H) [facility] RBC - External 3.71(L) [facility] Hemoglobin - External 10.8(L) [facility] Hematocrit - External 33.8(L) [facility] MCV - External 91 [facility] MCH - External 29.1 [facility] MCHC - External 32.0 [facility] RDWCV - External 14.2(H) [facility] Platelets - External 512(H) [facility] MPV - External 9.8 [facility] NRBC % - External 0.0 [facility] NRBC Abs - External 0.0 [facility] Neutrophils % - External 64.2 [facility] Lymphocytes % - External 25.8 [facility] Monocytes % - External 6.8 [facility] Eosinophils % - External 2.0 [facility] Basophils % - External 0.9 [facility] Immature Gran % - External 0.3 [facility] Neutr ABS (ANC) - External 7.06(H) [facility] Lymphocyte ABS - External 2.84 [facility] Monocyte ABS - External 0.75 [facility] Eosinophil ABS - External 0.22 [facility] Basophil ABS - External 0.10 [facility] Blood VENOUS BLOOD SPECIMEN / Unknown 10/16/2024 Amaya Hernandez MD HEMATOLOGY ORDERABLE [place] [id number] [facility] [address] [place] [phone] * POC, GLUCOSE (10/10/2024 4:27 PM EST) Glucometer, POC 172 65 - 199 mg/dL 10/10/2024 4:27 PM EST [facility] Comment:Supplemental ranges: <140 mg/dL before meals <180 mg/dL all other times of the day. Blood CAPILLARY BLOOD / Unknown 10/10/2024 4:27 PM EST 10/10/2024 4:27 PM EST Hayley Torres MD POINT OF CARE TEST O RDERABLES [facility] [place] [address] * POC, GLUCOSE (10/10/2024 11:10 AM EST) Glucometer, POC 174 65 - 199 mg/dL 10/10/2024 11:11 AM EST [facility] Comment:Supplemental ranges: <140 mg/dL before meals <180 mg/dL all other times of the day. Blood CAPILLARY BLOOD / Unknown 10/10/2024 11:10 AM EST 10/10/2024 11:11 AM EST Hayley Torres MD POINT OF CARE TEST O GILDA Performing Organization Address City/[facility] Co de Phone Number [facility] [place] [address] * POC, GLUCOSE (10/10/2024 7:46 AM EST) Glucometer, POC 141 65 - 199 mg/dL 10/10/2024 7:46 AM EST [facility] Comment:Supplemental ranges: <140 mg/dL before meals <180 mg/dL all other times of the day. Blood CAPILLARY BLOOD / Unknown 10/10/2024 7:46 AM EST 10/10/2024 7:46 AM EST Hayley Torres MD POINT OF CARE TEST O GILDA Performing Organization Address [facility] Co de Phone Number [facility] [place] [address] * POC, GLUCOSE (10/10/2024 6:11 AM EST) Glucometer, POC 127 65 - 199 mg/dL 10/10/2024 6:11 AM EST [facility] Comment:Supplemental ranges: <140 mg/dL before meals <180 mg/dL all other times of the day. Blood CAPILLARY BLOOD / Unknown 10/10/2024 6:11 AM EST 10/10/2024 6:11 AM EST Hayley Torres MD POINT OF CARE TEST O GILDA Performing Organization Address City/[facility]/ZIP Co de Phone Number [facility] [place] [address] * CK (10/10/2024 12:33 AM EST) Pathologist [facility] Creatine Kinase 32 0 - 200 unit/L 10/10/2024 8:54 AM [facility] Blood VENOUS BLOOD SPECIMEN / Unknown Venipuncture / Unknown 10/10/2024 12:33 AM EST 10/10/2024 12:43 AM EST María Carranza APRN CHEMISTRY ORDER RANDELL [facility] [address] [place] [address] * (ABNORMAL) CBC (with Diff) (10/10/2024 12:33 AM EST) [facility] White Blood Cell 11.57(H) 4.00 - 9.50 x10(3)/mc L 10/10/2024 12:48 AM [facility] Red Blood Cell 3.75(L) 4.58 - 5.54 x10(6)/mc L 10/10/2024 12:48 AM [facility] Hemoglobin 11.1(L) 13.7 - 16.5 g/dL 10/10/2024 12:48 AM [facility] Hematocrit 33.5(L) 40.5 - 48.5 % 10/10/2024 12:48 AM [facility] Mean Cell Volume 89.3 82.9 - 93.1 fL 10/10/2024 12:48 AM [facility] Mean Cell Hemoglobin 29.6 27.5 - 32.1 pg 10/10/2024 12:48 AM [facility] Mean Cell Hemoglobin Concentration 33.1 32.0 - 35.7 g/dL 10/10/2024 12:48 AM [facility] Platelet 823(H) 145 - 357 x10(3)/mc L 10/10/2024 12:48 AM [facility] Mean Platelet Volume 9.2 7.6 - 12.9 fL 10/10/2024 12:48 AM [facility] RDW Standard Deviation 46.3(H) 36.0 - 45.0 fL 10/10/2024 12:48 AM [facility] RDW coefficient of variation 14.6(H) 11.4 - 13.8 % 10/10/2024 12:48 AM [facility] NRBC% auto 0.0 % 10/10/2024 12:48 AM [facility] NRBC Absolute <0.01 <0.01 x10(3)/mc L 10/10/2024 12:48 AM [facility] Neutrophil % 61.3 % 10/10/2024 12:48 AM [facility] Neutrophil Absolute (ANC) - Automated 7.08(H) 1.70 - 6.10 x10(3)/mc L 10/10/2024 12:48 AM [facility] Lymph % 28.7 % 10/10/2024 12:48 AM [facility] Lymph Absolute 3.32(H) 0.90 - 3.20 x10(3)/mc L 10/10/2024 12:48 AM [facility] Monocyte % 7.0 % 10/10/2024 12:48 [address] [facility] Monocyte Absolute 0.81 0.30 - 0.90 x10(3)/mc L 10/10/2024 12:48 AM [facility] Eos % 1.6 % 10/10/2024 12:48 AM [facility] Eos Absolute 0.19 0.00 - 0.40 x10(3)/mc L 10/10/2024 12:48 AM [facility] Basophil % 1.0 % 10/10/2024 12:48 AM [facility] Baso Absolute 0.12(H) 0.00 - 0.10 x10(3)/mc L 10/10/2024 12:48 AM [facility] Immature Gran % 0.4 % 12:48 AM [facility] Immature Gran Absolute 0.05(H) 0.00 - 0.04 x10(3)/mc L 10/10/2024 12:48 AM [facility] Blood VENOUS BLOOD SPECIMEN / Unknown Venipuncture / Unknown 10/10/2024 12:33 AM EST 10/10/2024 12:43 AM EST Hayley Torres MD HEMATOLOGY ORDERABLE S [facility] [place] [address] * (ABNORMAL) Basic Metabolic Panel (10/10/2024 12:33 AM EST) Glucose 125 65 - 199 mg/dL 10/10/2024 1:12 AM [facility] Comment:Glucose Concentratio n >=200 mg/dL plus symptoms is consistent with Diabetes Mellitus. Blood Urea Nitrogen 19 10 - 20 mg/dL 10/10/2024 1:12 AM [facility] Creatinine 0.57(L) 0.80 - 1.50 mg/dL 10/10/2024 1:12 AM [facility] Sodium 138 135 - 145 mMol/L 10/10/2024 1:12 AM [facility] Potassium 4.1 3.5 - 5.0 mMol/L 10/10/2024 1:12 AM [facility] Chloride 103 98 - 107 mMol/L 10/10/2024 1:12 AM [facility] Carbon Dioxide 25 22 - 31 mMol/L 10/10/2024 1:12 AM [facility] Anion Gap 10 5 - 15 mMol/L 10/10/2024 1:12 AM [facility] Calcium 9.4 8.5 - 10.5 mg/dL 10/10/2024 1:12 AM [facility] Est Glomerular Filtration Rate - Male 119 mL/min/1. 73 m?? 10/10/2024 1:12 AM EST [facility] Comment: This patient's estimated [...] Torres MD CHEMISTRY ORDERABLES Performing Organization Address City/[facility]/ZIP Co de Phone Number [facility] [place] [address] * Phosphorus (10/10/2024 12:33 AM EST) Phosphorus 3.8 2.5 - 4.5 mg/dL 10/10/2024 1:12 AM EST [facility] Blood VENOUS BLOOD SPECIMEN / Unknown Venipuncture / Unknown 10/10/2024 12:33 AM EST 10/10/2024 12:43 AM EST Hayley Torres MD CHEMISTRY ORDERABLES [facility] [place] [address] * Magnesium (10/10/2024 12:33 AM EST) Magnesium 0.81 0.69 - 1.07 mMol/L 10/10/2024 1:12 AM EST [facility] Blood VENOUS BLOOD SPECIMEN / Unknown Venipuncture / Unknown 10/10/2024 12:33 AM EST 10/10/2024 12:43 AM EST Hayley Torres MD CHEMISTRY ORDERABLES Performing Organization Address [facility] Co de Phone Number [facility] [place] [place] [address] * POC, GLUCOSE (10/10/2024 12:31 AM EST) Glucometer, POC 119 65 - 199 mg/dL 10/10/2024 12:32 AM EST [facility] Comment:Supplemental ranges: <140 mg/dL before meals <180 mg/dL all other times of the day. Blood CAPILLARY BLOOD / Unknown 10/10/2024 12:31 AM EST 10/10/2024 12:32 AM EST Hayley Torres MD POINT OF CARE TEST O RDERABLES Performing Organization Address [facility] de Phone Number [facility] [place] [address] * POC, GLUCOSE (10/09/2024 8:16 PM EST) Glucometer, POC 104 65 - 199 mg/dL 10/09/2024 8:16 PM EST [facility] Comment:Supplemental ranges: <140 mg/dL before meals <180 mg/dL all other times of the day. Blood CAPILLARY BLOOD / Unknown 10/09/2024 8:16 PM EST 10/09/2024 8:16 PM EST Hayley Torres MD POINT OF CARE TEST O GILDA Performing Organization Address [facility] Co de Phone Number [facility] [place] [address] * POC, GLUCOSE (10/09/2024 3:57 PM EST) Glucometer, POC 120 65 - 199 mg/dL 10/09/2024 3:57 PM EST [facility] Comment:Supplemental ranges: <140 mg/dL before meals <180 mg/dL all other times of the day. Blood CAPILLARY BLOOD / Unknown 10/09/2024 3:57 PM EST 10/09/2024 3:57 PM EST Hayley Torres MD POINT OF CARE TEST O RDTYESHA [facility] [place] [address] * Place PICC Line: Contact Vascular Access Page [phone] Extremity to exclude: No restrictions; Is PICC procedure required PRIOR to patients discharge? Yes (10/09/2024 1:55 PM EST) Narrative Jorge Torres, DAVID - 10/09/2024 1:55 PM EST Jorge Torres [...] patient positioning and presence of the site tato was confirmed as applicable. The medical history and chart were reviewed to rule out potential contraindications to the planned procedure. Hand Hygiene: The seafood fisherman did perform hand hygiene prior to line insertion. Catheter type: PICC Lot number: [id number] Procedure Technique: Skin was prepped with chlorhexidine. [...] PICC insertion Jorge Torres RN 10/09/2024 María Chávez Lex Dwayne MANAGEMENT LEAD PROCEDURE/MINOR SURGICAL ORDERABLES * XR PICC Placement Over 5 Years with Imaging Guidance (IV Team) (10/09/2024 1:55 PM EST) Total Immersion WORKSTATION ID [id number] RAD Anatomical Region Laterality Modality N/A Radio Fluoroscop [...] questions please contact the health director of health care marketing that requested your imaging first. ? Narrative 10/09/2024 3:30 PM EST EXAMINATION: XR [...] have questions please contactthe health director of health care marketing that requested your imaging first. María Carranza APRN [facility] FRANCHESKA GILBERT * POC, GLUCOSE (10/09/2024 11:40 AM EST) [facility] Glucometer, POC 180 65 - 199 mg/dL 10/09/2024 11:40 AM EST [facility] Comment:Supplemental ranges: <140 mg/dL before meals <180 mg/dL all other times of the day. Blood CAPILLARY BLOOD / Unknown 10/09/2024 11:40 AM EST 10/09/2024 11:41 AM EST Hayley Torres MD POINT OF CARE TEST O RDERABLES [facility] [place] [address] * (ABNORMAL) POC, GLUCOSE (10/09/2024 7:35 AM EST) Glucometer, POC 215(H) 65 - 199 mg/dL 10/09/2024 7:36 AM EST [facility] Comment:Supplemental ranges: <140 mg/dL before meals <180 mg/dL all other times of the day. Blood CAPILLARY BLOOD / Unknown 10/09/2024 7:35 AM EST 10/09/2024 7:36 AM EST Hayley Torres MD POINT OF CARE TEST O GILDA Performing Organization Address [facility]/ZIP Co de Phone Number [facility] [place] [address] * POC, GLUCOSE (10/09/2024 4:26 AM EST) Glucometer, POC 175 65 - 199 mg/dL 10/09/2024 4:26 AM EST [facility] Comment:Supplemental ranges: <140 mg/dL before meals <180 mg/dL all other times of the day. Blood CAPILLARY BLOOD / Unknown 10/09/2024 4:26 AM EST 10/09/2024 4:26 AM EST Hayley Torres MD POINT OF CARE TEST O GILDA Performing Organization Address City/[facility]/ZIP Co de Phone Number [facility] [place] [address] * (ABNORMAL) CBC (with Diff) (10/09/2024 12:45 AM EST) White Blood Cell 11.27(H) 4.00 - 9.50 x10(3)/mc L 10/09/2024 1:31 AM EST [facility] Red Blood Cell 3.74(L) 4.58 - 5.54 x10(6)/mc L 10/09/2024 1:31 AM EST [facility] Hemoglobin 10.8(L) 13.7 - 16.5 g/dL 10/09/2024 1:31 AM EST [facility] Hematocrit 33.5(L) 40.5 - 48.5 % 10/09/2024 1:31 AM [facility] Mean Cell Volume 89.6 82.9 - 93.1 fL 10/09/2024 1:31 AM [facility] Mean Cell Hemoglobin 28.9 27.5 - 32.1 pg 10/09/2024 1:31 AM [facility] Mean Cell Hemoglobin Concentration 32.2 32.0 - 35.7 g/dL 10/09/2024 1:31 AM [facility] Platelet 886(H) 145 - 357 x10(3)/mc L 10/09/2024 1:31 AM [facility] Mean Platelet Volume 9.5 7.6 - 12.9 fL 10/09/2024 1:31 AM [facility] RDW Standard Deviation 47.7(H) 36.0 - 45.0 fL 10/09/2024 1:31 AM [facility] RDW coefficient of variation 14.6(H) 11.4 - 13.8 % 10/09/2024 1:31 AM [facility] NRBC% auto 0.0 % 10/09/2024 1:31 AM [facility] NRBC Absolute <0.01 <0.01 x10(3)/mc L 10/09/2024 1:31 AM [facility] Neutrophil % 61.7 % 10/09/2024 1:31 AM [facility] Neutrophil Absolute (ANC) - Automated 6.95(H) 1.70 - 6.10 x10(3)/mc L 10/09/2024 1:31 AM [facility] Lymph % 28.3 % 10/09/2024 1:31 AM [facility] Lymph Absolute 3.19 0.90 - 3.20 x10(3)/mc L 10/09/2024 1:31 AM [facility] Monocyte % 6.8 % 10/09/2024 1:31 AM [facility] Monocyte Absolute 0.77 0.30 - 0.90 x10(3)/mc L 10/09/2024 1:31 AM [facility] Eos % 1.5 % 10/09/2024 1:31 AM [facility] Eos Absolute 0.17 0.00 - 0.40 x10(3)/mc L 10/09/2024 1:31 AM EST [facility] Basophil % 1.1 % 10/09/2024 1:31 AM [facility] Baso Absolute 0.12(H) 0.00 - 0.10 x10(3)/mc L 10/09/2024 1:31 AM [facility] Immature Gran % 0.6 % 1:31 AM [facility] Immature Gran Absolute 0.07(H) 0.00 - 0.04 x10(3)/mc L 10/09/2024 1:31 AM [facility] Blood VENOUS BLOOD SPECIMEN / Unknown Venipuncture / Unknown 10/09/2024 12:45 AM EST 10/09/2024 1:27 AM EST Hayley Torres MD HEMATOLOGY ORDERABLE S [facility] [place] [address] * (ABNORMAL) Basic Metabolic Panel (10/09/2024 12:45 AM EST) Glucose 135 65 - 199 mg/dL 10/09/2024 1:54 AM [facility] Comment:Glucose Concentratio n >=200 mg/dL plus symptoms is consistent with Diabetes Mellitus. Blood Urea Nitrogen 22(H) 10 - 20 mg/dL 10/09/2024 1:54 AM [facility] Creatinine 0.53(L) 0.80 - 1.50 mg/dL 10/09/2024 1:54 AM [facility] Sodium 138 135 - 145 mMol/L 10/09/2024 1:54 AM [facility] Potassium 4.1 3.5 - 5.0 mMol/L 10/09/2024 1:54 AM [facility] Chloride 102 98 - 107 mMol/L 10/09/2024 1:54 AM [facility] Carbon Dioxide 24 22 - 31 mMol/L 10/09/2024 1:54 AM [facility] Anion Gap 12 5 - 15 mMol/L 10/09/2024 1:54 AM [facility] Calcium 9.4 8.5 - 10.5 mg/dL 10/09/2024 1:54 AM [facility] Est Glomerular Filtration Rate - Male 122 mL/min/1. 73 m?? 10/09/2024 1:54 AM [facility] Comment: This patient's estimated [...] BLOOD SPECIMEN / Unknown Venipuncture / Unknown 10/09/2024 12:45 AM EST 10/09/2024 1:27 AM EST Hayley Torres MD CHEMISTRY ORDERABLES [facility] [place] [address] * Phosphorus (10/09/2024 12:45 AM EST) Phosphorus 3.9 2.5 - 4.5 mg/dL 10/09/2024 1:54 AM [facility] Blood VENOUS BLOOD SPECIMEN / Unknown Venipuncture / Unknown 10/09/2024 12:45 AM EST 10/09/2024 1:27 AM EST Hayley Torres MD CHEMISTRY ORDERABLES Performing Organization Address City/[facility]/ZIP Co de Phone Number [facility] [place] [address] * Magnesium (10/09/2024 12:45 AM EST) Magnesium 0.80 0.69 - 1.07 mMol/L 10/09/2024 1:54 AM EST [facility] Blood VENOUS BLOOD SPECIMEN / Unknown Venipuncture / Unknown 10/09/2024 12:45 AM EST 10/09/2024 1:27 AM EST Hayley Torres MD CHEMISTRY ORDERABLES Performing Organization Address [facility] Co de Phone Number [facility] [place] [address] * POC, GLUCOSE (10/09/2024 12:11 AM EST) Glucometer, POC 157 65 - 199 mg/dL 10/09/2024 12:11 AM EST [facility] Comment:Supplemental ranges: <140 mg/dL before meals <180 mg/dL all other times of the day. Blood CAPILLARY BLOOD / Unknown 10/09/2024 12:11 AM EST 10/09/2024 12:11 AM EST Hayley Torres MD POINT OF CARE TEST O RDERABLES Performing Organization Address City/[facility]/ZIP Co de Phone Number [facility] [place] [address] * POC, GLUCOSE (10/08/2024 7:25 PM EST) Glucometer, POC 157 65 - 199 mg/dL 10/08/2024 7:25 PM EST [facility] Comment:Supplemental ranges: <140 mg/dL before meals <180 mg/dL all other times of the day. Blood CAPILLARY BLOOD / Unknown 10/08/2024 7:25 PM EST 10/08/2024 7:25 PM EST Hayley Torres MD POINT OF CARE TEST O GILDA Performing Organization Address [facility] Co de Phone Number [facility] [place] [address] * POC, GLUCOSE (10/08/2024 5:54 PM EST) Glucometer, POC 198 65 - 199 mg/dL 10/08/2024 5:54 PM EST [facility] Comment:Supplemental ranges: <140 mg/dL before meals <180 mg/dL all other times of the day. Blood CAPILLARY BLOOD / Unknown 10/08/2024 5:54 PM EST 10/08/2024 5:54 PM EST Hayley Torres MD POINT OF CARE TEST O GILDA Performing Organization Address [facility] Phone Number [facility] [place] [address] * (ABNORMAL) POC, GLUCOSE (10/08/2024 4:08 PM EST) Glucometer, POC 281(H) 65 - 199 mg/dL 10/08/2024 4:08 PM EST [facility] Comment:Supplemental ranges: <140 mg/dL before meals <180 mg/dL all other times of the day. Blood CAPILLARY BLOOD / Unknown 10/08/2024 4:08 PM EST 10/08/2024 4:09 PM EST Hayley Torres MD POINT OF CARE TEST O GILDA Performing Organization Address [facility] Co de Phone Number [facility] [place] [address] * POC, GLUCOSE (10/08/2024 12:44 PM EST) Glucometer, POC 146 65 - 199 mg/dL 10/08/2024 12:44 PM EST [facility] Comment:Supplemental ranges: <140 mg/dL before meals <180 mg/dL all other times of the day. Blood CAPILLARY BLOOD / Unknown 10/08/2024 12:44 PM EST 10/08/2024 12:44 PM EST Hayley Torres MD POINT OF CARE TEST O RDERABLES Performing Organization Address [facility] de Phone Number [facility] [place] [address] * POC, GLUCOSE (10/08/2024 8:30 AM EST) Glucometer, POC 172 65 - 199 mg/dL 10/08/2024 8:30 AM EST [facility] Comment:Supplemental ranges: <140 mg/dL before meals <180 mg/dL all other times of the day. Blood CAPILLARY BLOOD / Unknown 10/08/2024 8:30 AM EST 10/08/2024 8:30 AM EST Hayley Torres MD POINT OF CARE TEST O RDNAYEBLES Performing Organization Address [facility] de Phone Number [facility] [place] [address] * Vancomycin Level, Random (10/08/2024 5:59 AM EST) Vancomycin, Random 6.8 mg/L 2023 7:58 AM EST [facility] Comment:This level is for de termination of the patient's vancomycin rqal-ofgrq-nwo-curve (AUC) value. Contact the inpatient pharmacy for interpretation. Blood VENOUS BLOOD SPECIMEN / Unknown Venipuncture / Unknown 10/08/2024 5:59 AM EST 10/08/2024 7:29 AM EST Hayley Torres MD CHEMISTRY ORDERABLES Performing Organization Address [facility] Co de Phone Number [facility] [place] [address] * POC, GLUCOSE (10/08/2024 4:02 AM EST) Pathologist [facility] Glucometer, POC 163 65 - 199 mg/dL 10/08/2024 4:02 AM [facility] Comment:Supplemental ranges: <140 mg/dL before meals <180 mg/dL all other times of the day. Blood CAPILLARY BLOOD / Unknown 10/08/2024 4:02 AM EST 10/08/2024 4:02 AM EST Hayley Torres MD POINT OF CARE TEST O RDERABLES [facility] [place] [address] * (ABNORMAL) CBC (with Diff) (10/08/2024 12:08 AM EST) [facility] White Blood Cell 10.35(H) 4.00 - 9.50 x10(3)/mc L 10/08/2024 12:29 AM [facility] Red Blood Cell 3.53(L) 4.58 - 5.54 x10(6)/mc L 10/08/2024 12:29 AM [facility] Hemoglobin 10.2(L) 13.7 - 16.5 g/dL 10/08/2024 12:29 AM [facility] Hematocrit 31.7(L) 40.5 - 48.5 % 10/08/2024 12:29 AM [facility] Mean Cell Volume 89.8 82.9 - 93.1 fL 10/08/2024 12:29 AM [facility] Mean Cell Hemoglobin 28.9 27.5 - 32.1 pg 10/08/2024 12:29 AM [facility] Mean Cell Hemoglobin Concentration 32.2 32.0 - 35.7 g/dL 10/08/2024 12:29 AM [facility] Platelet 778(H) 145 - 357 x10(3)/mc L 10/08/2024 12:29 AM [facility] Mean Platelet Volume 9.1 7.6 - 12.9 fL 10/08/2024 12:29 AM [facility] RDW Standard Deviation 47.5(H) 36.0 - 45.0 fL 10/08/2024 12:29 AM [facility] RDW coefficient of variation 14.6(H) 11.4 - 13.8 % 10/08/2024 12:29 AM [facility] NRBC% auto 0.0 % 10/08/2024 12:29 AM [facility] NRBC Absolute <0.01 <0.01 x10(3)/mc L 10/08/2024 12:29 AM [facility] Neutrophil % 60.9 % 10/08/2024 12:29 AM [facility] Neutrophil Absolute (ANC) - Automated 6.30(H) 1.70 - 6.10 x10(3)/mc L 10/08/2024 12:29 AM [facility] Lymph % 28.4 % 10/08/2024 12:29 AM [facility] Lymph Absolute 2.94 0.90 - 3.20 x10(3)/mc L 10/08/2024 12:29 AM [facility] Monocyte % 7.2 % 10/08/2024 12:29 AM [facility] Monocyte Absolute 0.75 0.30 - 0.90 x10(3)/mc L 10/08/2024 12:29 AM [facility] Eos % 1.7 % 10/08/2024 12:29 AM [facility] Eos Absolute 0.18 0.00 - 0.40 x10(3)/mc L 10/08/2024 12:29 AM [facility] Basophil % 1.0 % 10/08/2024 12:29 AM [facility] Baso Absolute 0.10 0.00 - 0.10 x10(3)/mc L 10/08/2024 12:29 AM [facility] Immature Gran % 0.8 % 12:29 AM [facility] Immature Gran Absolute 0.08(H) 0.00 - 0.04 x10(3)/mc L 10/08/2024 12:29 AM [facility] Blood VENOUS BLOOD SPECIMEN / Unknown Venipuncture / Unknown 10/08/2024 12:08 AM EST 10/08/2024 12:23 AM EST Hayley Torres MD HEMATOLOGY ORDERABLE S [facility] [address] [place] [address] * (ABNORMAL) Basic Metabolic Panel (10/08/2024 12:08 AM EST) Glucose 151 65 - 199 mg/dL 10/08/2024 12:50 AM [facility] Comment:Glucose Concentratio n >=200 mg/dL plus symptoms is consistent with Diabetes Mellitus. Blood Urea Nitrogen 19 10 - 20 mg/dL 10/08/2024 12:50 AM [facility] Creatinine 0.60(L) 0.80 - 1.50 mg/dL 10/08/2024 12:50 AM [facility] Sodium 135 135 - 145 mMol/L 10/08/2024 12:50 AM [facility] Potassium 3.8 3.5 - 5.0 mMol/L 10/08/2024 12:50 AM [facility] Chloride 101 98 - 107 mMol/L 10/08/2024 12:50 AM [facility] Carbon Dioxide 25 22 - 31 mMol/L 10/08/2024 12:50 AM [facility] Anion Gap 9 5 - 15 mMol/L 10/08/2024 12:50 AM [facility] Calcium 9.2 8.5 - 10.5 mg/dL 10/08/2024 12:50 AM [facility] Est Glomerular Filtration Rate - Male 118 mL/min/1. 73 m?? 10/08/2024 12:50 AM EST [facility] Comment: This patient's estimated [...] SPECIMEN / Unknown Venipuncture / Unknown 10/08/2024 12:08 AM EST 10/08/2024 12:23 AM EST Hayley Torres MD CHEMISTRY ORDERABLES Performing Organization Address City/[facility]/ZIP Co de Phone Number [facility] [place] [address] * Phosphorus (10/08/2024 12:08 AM EST) Phosphorus 3.4 2.5 - 4.5 mg/dL 10/08/2024 12:50 AM EST [facility] Blood VENOUS BLOOD SPECIMEN / Unknown Venipuncture / Unknown 10/08/2024 12:08 AM EST 10/08/2024 12:23 AM EST Hayley Torres MD CHEMISTRY ORDERABLES [facility] [place] [address] * Magnesium (10/08/2024 12:08 AM EST) Magnesium 0.85 0.69 - 1.07 mMol/L 10/08/2024 12:50 AM EST [facility] Blood VENOUS BLOOD SPECIMEN / Unknown Venipuncture / Unknown 10/08/2024 12:08 AM EST 10/08/2024 12:23 AM EST Hayley Torres MD CHEMISTRY ORDERABLES Performing Organization Address City/[facility]/ZIP Co de Phone Number [facility] [place] [address] * CK (10/08/2024 12:08 AM EST) Creatine Kinase 24 0 - 200 unit/L 10/08/2024 12:50 AM EST [facility] Blood VENOUS BLOOD SPECIMEN / Unknown Venipuncture / Unknown 10/08/2024 12:08 AM EST 10/08/2024 12:23 AM EST Hayley Torres MD CHEMISTRY ORDERABLES Performing Organization Address [facility] Co de Phone Number [facility] [place] [address] * POC, GLUCOSE (10/08/2024 12:05 AM EST) Glucometer, POC 100 65 - 199 mg/dL 10/08/2024 12:05 AM EST [facility] Comment:Supplemental ranges: <140 mg/dL before meals <180 mg/dL all other times of the day. Blood CAPILLARY BLOOD / Unknown 10/08/2024 12:05 AM EST 10/08/2024 12:05 AM EST Hayley Torres MD POINT OF CARE TEST O RDERABLES Performing Organization Address City/[facility]/ZIP Co de Phone Number [facility] [place] [address] * POC, GLUCOSE (10/07/2024 8:29 PM EST) Glucometer, POC 107 65 - 199 mg/dL 10/07/2024 8:30 PM EST [facility] Comment:Supplemental ranges: <140 mg/dL before meals <180 mg/dL all other times of the day. Blood CAPILLARY BLOOD / Unknown 10/07/2024 8:29 PM EST 10/07/2024 8:30 PM EST Hayley Torres MD POINT OF CARE TEST O RDERABLES Performing Organization Address [facility] Co de Phone Number [facility] [place] [address] * POC, GLUCOSE (10/07/2024 4:33 PM EST) Glucometer, POC 129 65 - 199 mg/dL 10/07/2024 4:33 PM EST [facility] Comment:Supplemental ranges: <140 mg/dL before meals <180 mg/dL all other times of the day. Blood CAPILLARY BLOOD / Unknown 10/07/2024 4:33 PM EST 10/07/2024 4:34 PM EST Hayley Torres MD POINT OF CARE TEST O GILDA Performing Organization Address [facility] Co de Phone Number [facility] [place] [address] * (ABNORMAL) POC, GLUCOSE (10/07/2024 10:58 AM EST) Glucometer, POC 221(H) 65 - 199 mg/dL 10/07/2024 10:59 AM EST [facility] Comment:Supplemental ranges: <140 mg/dL before meals <180 mg/dL all other times of the day. Blood CAPILLARY BLOOD / Unknown 10/07/2024 10:58 AM EST 10/07/2024 10:59 AM EST Hayley Torres MD POINT OF CARE TEST O GILDA Performing Organization Address City/[facility] Co de Phone Number [facility] [place] [place] [address] * (ABNORMAL) POC, GLUCOSE (10/07/2024 7:42 AM EST) Glucometer, POC 201(H) 65 - 199 mg/dL 10/07/2024 7:42 AM EST [facility] Comment:Supplemental ranges: <140 mg/dL before meals <180 mg/dL all other times of the day. Blood CAPILLARY BLOOD / Unknown 10/07/2024 7:42 AM EST 10/07/2024 7:43 AM EST Hayley Torres MD POINT OF CARE TEST O GILDA Performing Organization Address [facility] Co de Phone Number [facility] [place] [place] [address] * POC, GLUCOSE (10/07/2024 3:58 AM EST) [facility] Glucometer, POC 150 65 - 199 mg/dL 10/07/2024 3:58 AM EST [facility] Comment:Supplemental ranges: <140 mg/dL before meals <180 mg/dL all other times of the day. Blood CAPILLARY BLOOD / Unknown 10/07/2024 3:58 AM EST 10/07/2024 3:58 AM EST Hayley Torres MD POINT OF CARE TEST O GILDA Performing Organization Address [facility] Co de Phone Number [facility] [place] [place] [address] * (ABNORMAL) CBC (with Diff) (10/07/2024 12:06 AM EST) [facility] White Blood Cell 11.27(H) 4.00 - 9.50 x10(3)/mc L 10/07/2024 12:19 AM [facility] Red Blood Cell 3.47(L) 4.58 - 5.54 x10(6)/mc L 10/07/2024 12:19 AM [facility] Hemoglobin 10.1(L) 13.7 - 16.5 g/dL 10/07/2024 12:19 AM [facility] Hematocrit 30.9(L) 40.5 - 48.5 % 10/07/2024 12:19 AM [facility] Mean Cell Volume 89.0 82.9 - 93.1 fL 10/07/2024 12:19 AM [facility] Mean Cell Hemoglobin 29.1 27.5 - 32.1 pg 10/07/2024 12:19 AM [facility] Mean Cell Hemoglobin Concentration 32.7 32.0 - 35.7 g/dL 10/07/2024 12:19 AM [facility] Platelet 789(H) 145 - 357 x10(3)/mc L 10/07/2024 12:19 AM [facility] Mean Platelet Volume 9.0 7.6 - 12.9 fL 10/07/2024 12:19 AM [facility] RDW Standard Deviation 45.7(H) 36.0 - 45.0 fL 10/07/2024 12:19 AM [facility] RDW coefficient of variation 14.3(H) 11.4 - 13.8 % 10/07/2024 12:19 AM [facility] NRBC% auto 0.0 % 10/07/2024 12:19 AM [facility] NRBC Absolute <0.01 <0.01 x10(3)/mc L 10/07/2024 12:19 AM [facility] Neutrophil % 62.9 % 10/07/2024 12:19 AM [facility] Neutrophil Absolute (ANC) - Automated 7.09(H) 1.70 - 6.10 x10(3)/mc L 10/07/2024 12:19 AM [facility] Lymph % 28.3 % 10/07/2024 12:19 AM [facility] Lymph Absolute 3.19 0.90 - 3.20 x10(3)/mc L 10/07/2024 12:19 AM [facility] Monocyte % 5.7 % 10/07/2024 12:19 AM [facility] Monocyte Absolute 0.64 0.30 - 0.90 x10(3)/mc L 10/07/2024 12:19 [address] [facility] Eos % 1.5 % 10/07/2024 12:19 [address] [facility] Eos Absolute 0.17 0.00 - 0.40 x10(3)/mc L 10/07/2024 12:19 AM [facility] Basophil % 0.7 % 10/07/2024 12:19 [address] [facility] Baso Absolute 0.08 0.00 - 0.10 x10(3)/mc L 10/07/2024 12:19 AM [facility] Immature Gran % 0.9 % 12:19 AM [facility] Immature Gran Absolute 0.10(H) 0.00 - 0.04 x10(3)/mc L 10/07/2024 12:19 AM [facility] Blood VENOUS BLOOD SPECIMEN / Unknown Venipuncture / Unknown 10/07/2024 12:06 AM EST 10/07/2024 12:11 AM EST Hayley Torres MD HEMATOLOGY ORDERABLE S Performing Organization Address City/State/[facility] Co de Phone Number [facility] [place] [address] * (ABNORMAL) Basic Metabolic Panel (10/07/2024 12:06 AM EST) Glucose 145 65 - 199 mg/dL 10/07/2024 12:40 AM [facility] Comment:Glucose Concentratio n >=200 mg/dL plus symptoms is consistent with Diabetes Mellitus. Blood Urea Nitrogen 18 10 - 20 mg/dL 10/07/2024 12:40 AM [facility] Creatinine 0.61(L) 0.80 - 1.50 mg/dL 10/07/2024 12:40 AM [facility] Sodium 139 135 - 145 mMol/L 10/07/2024 12:40 AM [facility] Potassium 4.0 3.5 - 5.0 mMol/L 10/07/2024 12:40 [address] [facility] Chloride 104 98 - 107 mMol/L 10/07/2024 12:40 AM [facility] Carbon Dioxide 25 22 - 31 mMol/L 10/07/2024 12:40 AM EST [facility] Anion Gap 10 5 - 15 mMol/L 10/07/2024 12:40 AM EST [facility] Calcium 9.0 8.5 - 10.5 mg/dL 10/07/2024 12:40 AM EST [facility] Est Glomerular Filtration Rate - Male 117 mL/min/1. 73 m?? 10/07/2024 12:40 AM EST [facility] Comment: This patient's estimated [...] BLOOD SPECIMEN / Unknown Venipuncture / Unknown 10/07/2024 12:06 AM EST 10/07/2024 12:11 AM EST Hayley Torres MD CHEMISTRY ORDERABLES [facility] [place] [address] * Phosphorus (10/07/2024 12:06 AM EST) Phosphorus 4.2 2.5 - 4.5 mg/dL 10/07/2024 12:40 AM EST [facility] Blood VENOUS BLOOD SPECIMEN / Unknown Venipuncture / Unknown 10/07/2024 12:06 AM EST 10/07/2024 12:11 AM EST Hayley Torres MD CHEMISTRY ORDERABLES [facility] [place] [address] * Magnesium (10/07/2024 12:06 AM EST) Magnesium 0.85 0.69 - 1.07 mMol/L 10/07/2024 12:40 AM EST [facility] Blood VENOUS BLOOD SPECIMEN / Unknown Venipuncture / Unknown 10/07/2024 12:06 AM EST 10/07/2024 12:11 AM EST Hayley Torres MD CHEMISTRY ORDERABLES Performing Organization Address [facility] Co de Phone Number [facility] [place] [address] * POC, GLUCOSE (10/07/2024 12:04 AM EST) Glucometer, POC 149 65 - 199 mg/dL 10/07/2024 12:04 AM EST [facility] Comment:Supplemental ranges: <140 mg/dL before meals <180 mg/dL all other times of the day. Blood CAPILLARY BLOOD / Unknown 10/07/2024 12:04 AM EST 10/07/2024 12:05 AM EST Hayley Torres MD POINT OF CARE TEST O RDERABLES Performing Organization Address [facility]/ZIP Co de Phone Number [facility] [place] [address] * POC, GLUCOSE (10/06/2024 7:24 PM EST) Glucometer, POC 151 65 - 199 mg/dL 10/06/2024 7:24 PM EST [facility] Comment:Supplemental ranges: <140 mg/dL before meals <180 mg/dL all other times of the day. Blood CAPILLARY BLOOD / Unknown 10/06/2024 7:24 PM EST 10/06/2024 7:24 PM EST Hayley Torres MD POINT OF CARE TEST O RDERAHERNANDEZ [facility] [place] [address] * POC, GLUCOSE (10/06/2024 5:32 PM EST) Glucometer, POC 126 65 - 199 mg/dL 10/06/2024 5:32 PM EST [facility] Comment:Supplemental ranges: <140 mg/dL before meals <180 mg/dL all other times of the day. Blood CAPILLARY BLOOD / Unknown 10/06/2024 5:32 PM EST 10/06/2024 5:32 PM EST Hayley Torres MD POINT OF CARE TEST O RDERABLES [facility] [place] [address] * XR PICC Placement Over 5 Years with Imaging Guidance (IV Team) (10/06/2024 3:04 PM EST) Pathologist [employer] WORKSTATION ID [id number] RAD Anatomical Region Laterality Modality N/A Radio Fluoroscop y Impressions 10/06/2024 3:43 PM EST Right PICC in satisfactory position. I have personally reviewed the image(s) and the resident's interpretation and agree with the findings, Charles Hamilton MD at 10/06/2024 3:43 PM Thank you for letting us participate in the care of this patient. ??If you are a health care provider and have any questions regarding this report, please contact the number below. ??For patients who have questions please contact the health director of health care marketing that requested your imaging first. ? Narrative 10/06/2024 3:43 PM EST EXAMINATION: XR PICC PLACEMENT OVER 5 YEARS WITH IMAGING GUIDANCE (IV TEAM) CLINICAL HISTORY: Confirmation of PICC line placement TECHNIQUE: C-arm placement of PICC line. Limited view of the line tip only. COMPARISON: None FINDINGS: Intraprocedural frontal radiograph of the mediastinum demonstrates a right PICC line, with the catheter tip projected at the cavoatrial junction. Procedure Note Charles Hamilton MD - 10/06/2024 EXAMINATION: XR PICC PLACEMENT OVER 5 YEARS WITH IMAGING GUIDANCE (IVTEAM) CLINICAL HISTORY: Confirmation of PICC line placement TECHNIQUE: C-arm placement of PICC line. Limited view of the line tiponly. COMPARISON: None FINDINGS: Intraprocedural frontal radiograph of the mediastinumdemonstrates a right PICC line, with the catheter tip projected at the cavoatrialjunction. IMPRESSION Right PICC in satisfactory position. I have personally reviewed the image(s) and the resident's interpretationand agree with the findings, Charles Hamilton MD at 10/06/2024 3:43 PM Thank you for letting us participate in the care of this patient. If youare a health care provider and have any questions regarding this report,please contact the number below. For patients who have questions please contactthe health director of health care marketing that requested your imaging first. Hayley Torres MD IMG FLUORO ORDERABLE S * Place PICC Line: Contact Vascular Access Page [phone] Extremity to exclude: No restrictions; Is PICC procedure required PRIOR to patients discharge? Yes (10/06/2024 2:57 PM EST) Narrative Dominique Holmna, RN - 10/06/2024 2:57 PM EST Dominique [...] patient positioning and presence of the site tato was confirmed as applicable. The medical history and chart were reviewed to rule out potential contraindications to the planned procedure. Hand Hygiene: The seafood fisherman did perform hand hygiene prior to line insertion. Catheter type: PICC Lot number: [id number] Procedure Technique: Skin was prepped with chlorhexidine. [...] Benson APRN PROCEDURE/MINOR GORE RGICAL ORDERABLES * POC, GLUCOSE (10/06/2024 12:12 PM EST) [facility] Glucometer, POC 137 65 - 199 mg/dL 10/06/2024 12:12 PM EST [facility] Comment:Supplemental ranges: <140 mg/dL before meals <180 mg/dL all other times of the day. Blood CAPILLARY BLOOD / Unknown 10/06/2024 12:12 PM EST 10/06/2024 12:12 PM EST Hayley Torres MD POINT OF CARE TEST O GILDA Performing Organization Address [facility] Co de Phone Number [facility] [place] [address] * (ABNORMAL) POC, GLUCOSE (10/06/2024 7:34 AM EST) Glucometer, POC 209(H) 65 - 199 mg/dL 10/06/2024 7:34 AM EST [facility] Comment:Supplemental ranges: <140 mg/dL before meals <180 mg/dL all other times of the day. Blood CAPILLARY BLOOD / Unknown 10/06/2024 7:34 AM EST 10/06/2024 7:34 AM EST Hayley Torres MD POINT OF CARE TEST O GILDA Performing Organization Address [facility] Co de Phone Number [facility] [place] [address] * POC, GLUCOSE (10/06/2024 3:29 AM EST) Glucometer, POC 151 65 - 199 mg/dL 10/06/2024 3:29 AM EST [facility] Comment:Supplemental ranges: <140 mg/dL before meals <180 mg/dL all other times of the day. Blood CAPILLARY BLOOD / Unknown 10/06/2024 3:29 AM EST 10/06/2024 3:29 AM EST Hayley Torres MD POINT OF CARE TEST O GILDA Performing Organization Address [facility] Co de Phone Number [facility] [place] [address] * Vancomycin Level, Random (10/06/2024 12:03 AM EST) Vancomycin, Random 20.5 mg/L 2023 9:[address] [facility] Comment:This level is for de termination of the patient's vancomycin oikv-ubpev-jwp-curve (AUC) value. Contact the inpatient pharmacy for interpretation. Blood VENOUS BLOOD SPECIMEN / Unknown Venipuncture / Unknown 10/06/2024 12:03 AM EST 10/06/2024 12:15 AM EST Hayley Torres MD CHEMISTRY ORDERABLES [facility] [place] [address] * (ABNORMAL) CBC (with Diff) (10/06/2024 12:03 AM EST) White Blood Cell 12.26(H) 4.00 - 9.50 x10(3)/mc L 10/06/2024 12:19 AM [facility] Red Blood Cell 3.49(L) 4.58 - 5.54 x10(6)/mc L 10/06/2024 12:19 AM [facility] Hemoglobin 10.1(L) 13.7 - 16.5 g/dL 10/06/2024 12:19 AM [facility] Hematocrit 30.9(L) 40.5 - 48.5 % 10/06/2024 12:19 AM [facility] Mean Cell Volume 88.5 82.9 - 93.1 fL 10/06/2024 12:19 AM [facility] Mean Cell Hemoglobin 28.9 27.5 - 32.1 pg 10/06/2024 12:19 AM [facility] Mean Cell Hemoglobin Concentration 32.7 32.0 - 35.7 g/dL 10/06/2024 12:19 AM [facility] Platelet 772(H) 145 - 357 x10(3)/mc L 10/06/2024 12:19 AM [facility] Mean Platelet Volume 9.0 7.6 - 12.9 fL 10/06/2024 12:19 AM [facility] RDW Standard Deviation 46.0(H) 36.0 - 45.0 fL 10/06/2024 12:19 [address] [facility] RDW coefficient of variation 14.5(H) 11.4 - 13.8 % 10/06/2024 12:19 AM [facility] NRBC% auto 0.0 % 10/06/2024 12:19 AM [facility] NRBC Absolute <0.01 <0.01 x10(3)/mc L 10/06/2024 12:19 AM [facility] Neutrophil % 66.7 % 10/06/2024 12:19 AM [facility] Neutrophil Absolute (ANC) - Automated 8.18(H) 1.70 - 6.10 x10(3)/mc L 10/06/2024 12:19 AM [facility] Lymph % 24.1 % 10/06/2024 12:19 AM [facility] Lymph Absolute 2.95 0.90 - 3.20 x10(3)/mc L 10/06/2024 12:19 AM [facility] Monocyte % 6.2 % 10/06/2024 12:19 AM [facility] Monocyte Absolute 0.76 0.30 - 0.90 x10(3)/mc L 10/06/2024 12:19 AM [facility] Eos % 1.3 % 10/06/2024 12:19 AM [facility] Eos Absolute 0.16 0.00 - 0.40 x10(3)/mc L 10/06/2024 12:19 AM [facility] Basophil % 0.5 % 10/06/2024 12:19 AM [facility] Baso Absolute 0.06 0.00 - 0.10 x10(3)/mc L 10/06/2024 12:19 AM [facility] Immature Gran % 1.2 % 12:19 AM [facility] Immature Gran Absolute 0.15(H) 0.00 - 0.04 x10(3)/mc L 10/06/2024 12:19 AM [facility] Blood VENOUS BLOOD SPECIMEN / Unknown Venipuncture / Unknown 10/06/2024 12:03 AM EST 10/06/2024 12:15 AM EST Hayley Torres MD HEMATOLOGY ORDERABLE S [facility] [place] [address] * Basic Metabolic Panel (10/06/2024 12:03 AM EST) Glucose 94 65 - 199 mg/dL 10/06/2024 12:44 AM [facility] Comment:Glucose Concentratio n >=200 mg/dL plus symptoms is consistent with Diabetes Mellitus. Blood Urea Nitrogen 17 10 - 20 mg/dL 10/06/2024 12:44 AM [facility] Creatinine 0.85 0.80 - 1.50 mg/dL 10/06/2024 12:44 AM [facility] Sodium 139 135 - 145 mMol/L 10/06/2024 12:44 AM [facility] Potassium 4.3 3.5 - 5.0 mMol/L 10/06/2024 12:44 AM [facility] Chloride 103 98 - 107 mMol/L 10/06/2024 12:44 AM [facility] Carbon Dioxide 22 22 - 31 mMol/L 10/06/2024 12:44 AM [facility] Anion Gap 14 5 - 15 mMol/L 10/06/2024 12:44 AM [facility] Calcium 8.8 8.5 - 10.5 mg/dL 10/06/2024 12:44 AM [facility] Est Glomerular Filtration Rate - Male 106 mL/min/1. 73 m?? 10/06/2024 12:44 AM [facility] Comment: This patient's estimated [...] BLOOD SPECIMEN / Unknown Venipuncture / Unknown 10/06/2024 12:03 AM EST 10/06/2024 12:15 AM EST Hayley Torres MD CHEMISTRY ORDERABLES Performing Organization Address [facility] [place] [address] * Phosphorus (10/06/2024 12:03 AM EST) Phosphorus 4.3 2.5 - 4.5 mg/dL 10/06/2024 12:44 AM EST [facility] Blood VENOUS BLOOD SPECIMEN / Unknown Venipuncture / Unknown 10/06/2024 12:03 AM EST 10/06/2024 12:15 AM EST Hayley Torres MD CHEMISTRY ORDERABLES Performing Organization Address [facility] [place] [address] * Magnesium (10/06/2024 12:03 AM EST) Magnesium 0.83 0.69 - 1.07 mMol/L 10/06/2024 12:44 AM EST [facility] Blood VENOUS BLOOD SPECIMEN / Unknown Venipuncture / Unknown 10/06/2024 12:03 AM EST 10/06/2024 12:15 AM EST Hayley Torres MD CHEMISTRY ORDERABLES Performing Organization Address City/[facility] Co de Phone Number [facility] [place] [address] * POC, GLUCOSE (10/06/2024 12:02 AM EST) Glucometer, POC 98 65 - 199 mg/dL 10/06/2024 12:02 AM EST [facility] Comment:Supplemental ranges: <140 mg/dL before meals <180 mg/dL all other times of the day. Blood CAPILLARY BLOOD / Unknown 10/06/2024 12:02 AM EST 10/06/2024 12:02 AM EST Hayley Torres MD POINT OF CARE TEST O GILDA [facility] [place] [address] * POC, GLUCOSE (10/05/2024 7:22 PM EST) Glucometer, POC 186 65 - 199 mg/dL 10/05/2024 7:23 PM EST [facility] Comment:Supplemental ranges: <140 mg/dL before meals <180 mg/dL all other times of the day. Blood CAPILLARY BLOOD / Unknown 10/05/2024 7:22 PM EST 10/05/2024 7:23 PM EST Hayley Torres MD POINT OF CARE TEST O GILDA [facility] [place] [address] * POC, GLUCOSE (10/05/2024 5:35 PM EST) Glucometer, POC 177 65 - 199 mg/dL 10/05/2024 5:35 PM EST [facility] Comment:Supplemental ranges: <140 mg/dL before meals <180 mg/dL all other times of the day. Blood CAPILLARY BLOOD / Unknown 10/05/2024 5:35 PM EST 10/05/2024 5:35 PM EST Hayley Torres MD POINT OF CARE TEST O RDERAHERNANDEZ Performing Organization Address [facility] Co de Phone Number [facility] [place] [address] * POC, GLUCOSE (10/05/2024 3:57 PM EST) Glucometer, POC 141 65 - 199 mg/dL 10/05/2024 3:57 PM EST [facility] Comment:Supplemental ranges: <140 mg/dL before meals <180 mg/dL all other times of the day. Blood CAPILLARY BLOOD / Unknown 10/05/2024 3:57 PM EST 10/05/2024 3:57 PM EST Hayley Torres MD POINT OF CARE TEST O GILDA Performing Organization Address [facility] de Phone Number [facility] [place] [address] * POC, GLUCOSE (10/05/2024 11:50 AM EST) Glucometer, POC 134 65 - 199 mg/dL 10/05/2024 11:50 AM EST [facility] Comment:Supplemental ranges: <140 mg/dL before meals <180 mg/dL all other times of the day. Blood CAPILLARY BLOOD / Unknown 10/05/2024 11:50 AM EST 10/05/2024 11:50 AM EST Hayley Torres MD POINT OF CARE TEST O GILDA Performing Organization Address [facility] Co de Phone Number [facility] [place] [address] * POC, GLUCOSE (10/05/2024 7:51 AM EST) Glucometer, POC 114 65 - 199 mg/dL 10/05/2024 7:51 AM EST [facility] Comment:Supplemental ranges: <140 mg/dL before meals <180 mg/dL all other times of the day. Blood CAPILLARY BLOOD / Unknown 10/05/2024 7:51 AM EST 10/05/2024 7:51 AM EST Hayley Torres MD POINT OF CARE TEST O GILDA Performing Organization Address City/[facility]/ZIP Co de Phone Number [facility] [place] [address] * POC, GLUCOSE (10/05/2024 4:18 AM EST) Glucometer, POC 147 65 - 199 mg/dL 10/05/2024 4:18 AM [facility] Comment:Supplemental ranges: <140 mg/dL before meals <180 mg/dL all other times of the day. Blood CAPILLARY BLOOD / Unknown 10/05/2024 4:18 AM EST 10/05/2024 4:18 AM EST Hayley Torres MD POINT OF CARE TEST O GILDA Performing Organization Address [facility] Co de Phone Number [facility] [place] [address] * (ABNORMAL) CBC (with Diff) (10/04/2024 11:50 PM EST) White Blood Cell 12.73(H) 4.00 - 9.50 x10(3)/mc L 10/05/2024 12:10 AM [facility] Red Blood Cell 3.45(L) 4.58 - 5.54 x10(6)/mc L 10/05/2024 12:10 AM [facility] Hemoglobin 9.8(L) 13.7 - 16.5 g/dL 10/05/2024 12:10 AM [facility] Hematocrit 30.6(L) 40.5 - 48.5 % 10/05/2024 12:10 AM [facility] Mean Cell Volume 88.7 82.9 - 93.1 fL 10/05/2024 12:10 AM [facility] Mean Cell Hemoglobin 28.4 27.5 - 32.1 pg 10/05/2024 12:10 AM [facility] Mean Cell Hemoglobin Concentration 32.0 32.0 - 35.7 g/dL 10/05/2024 12:10 AM [facility] Platelet 709(H) 145 - 357 x10(3)/mc L 10/05/2024 12:10 AM [facility] Mean Platelet Volume 8.9 7.6 - 12.9 fL 10/05/2024 12:10 AM [facility] RDW Standard Deviation 45.4(H) 36.0 - 45.0 fL 10/05/2024 12:10 AM [facility] RDW coefficient of variation 14.3(H) 11.4 - 13.8 % 10/05/2024 12:10 AM [facility] NRBC% auto 0.0 % 10/05/2024 12:10 AM [facility] NRBC Absolute <0.01 <0.01 x10(3)/mc L 10/05/2024 12:10 AM [facility] Neutrophil % 68.5 % 10/05/2024 12:10 AM [facility] Neutrophil Absolute (ANC) - Automated 8.72(H) 1.70 - 6.10 x10(3)/mc L 10/05/2024 12:10 AM [facility] Lymph % 21.3 % 10/05/2024 12:10 AM [facility] Lymph Absolute 2.71 0.90 - 3.20 x10(3)/mc L 10/05/2024 12:10 AM [facility] Monocyte % 5.5 % 10/05/2024 12:10 AM [facility] Monocyte Absolute 0.70 0.30 - 0.90 x10(3)/mc L 10/05/2024 12:10 AM [facility] Eos % 1.6 % 10/05/2024 12:10 AM [facility] Eos Absolute 0.20 0.00 - 0.40 x10(3)/mc L 10/05/2024 12:10 AM [facility] Basophil % 0.5 % 10/05/2024 12:10 AM [facility] Baso Absolute 0.07 0.00 - 0.10 x10(3)/mc L 10/05/2024 12:10 AM [facility] [facility] Immature Gran % 2.6 % 12:10 AM [facility] Immature Gran Absolute 0.33(H) 0.00 - 0.04 x10(3)/mc L 10/05/2024 12:10 AM [facility] Blood VENOUS BLOOD SPECIMEN / Unknown Venipuncture / Unknown 10/04/2024 11:50 PM EST 10/05/2024 12:03 AM EST Hayley Torres MD HEMATOLOGY ORDERABLE S Performing Organization Address City/State/[facility] Co de Phone Number [facility] [place] [address] * (ABNORMAL) Basic Metabolic Panel (10/04/2024 11:50 PM EST) Glucose 104 65 - 199 mg/dL 10/05/2024 12:35 AM [facility] Comment:Glucose Concentratio n >=200 mg/dL plus symptoms is consistent with Diabetes Mellitus. Blood Urea Nitrogen 13 10 - 20 mg/dL 10/05/2024 12:35 AM [facility] Creatinine 0.55(L) 0.80 - 1.50 mg/dL 10/05/2024 12:35 AM [facility] Sodium 140 135 - 145 mMol/L 10/05/2024 12:35 AM [facility] Potassium 3.9 3.5 - 5.0 mMol/L 10/05/2024 12:35 AM [facility] Chloride 105 98 - 107 mMol/L 10/05/2024 12:35 AM [facility] Carbon Dioxide 24 22 - 31 mMol/L 10/05/2024 12:35 AM EST [facility] Anion Gap 11 5 - 15 mMol/L 10/05/2024 12:35 AM EST [facility] Calcium 9.0 8.5 - 10.5 mg/dL 10/05/2024 12:35 AM EST [facility] Est Glomerular Filtration Rate - Male 121 mL/min/1. 73 m?? 10/05/2024 12:35 AM EST [facility] Comment: This patient's estimated [...] SPECIMEN / Unknown Venipuncture / Unknown 10/04/2024 11:50 PM EST 10/05/2024 12:03 AM EST Hayley Torres MD CHEMISTRY ORDERABLES [facility] [place] [address] * Phosphorus (10/04/2024 11:50 PM EST) Phosphorus 4.2 2.5 - 4.5 mg/dL 10/05/2024 12:35 AM EST [facility] Blood VENOUS BLOOD SPECIMEN / Unknown Venipuncture / Unknown 10/04/2024 11:50 PM EST 10/05/2024 12:03 AM EST Hayley Torres MD CHEMISTRY ORDERABLES [facility] [place] [address] * Magnesium (10/04/2024 11:50 PM EST) Magnesium 0.89 0.69 - 1.07 mMol/L 10/05/2024 12:35 AM EST [facility] Blood VENOUS BLOOD SPECIMEN / Unknown Venipuncture / Unknown 10/04/2024 11:50 PM EST 10/05/2024 12:03 AM EST Hayley Torres MD CHEMISTRY ORDERABLES Performing Organization Address [facility] Co de Phone Number [facility] [place] [address] * POC, GLUCOSE (10/04/2024 11:36 PM EST) Glucometer, POC 121 65 - 199 mg/dL 10/04/2024 11:36 PM EST [facility] Comment:Supplemental ranges: <140 mg/dL before meals <180 mg/dL all other times of the day. Blood CAPILLARY BLOOD / Unknown 10/04/2024 11:36 PM EST 10/04/2024 11:36 PM EST Hayley Torres MD POINT OF CARE TEST O RDERABLES Performing Organization Address [facility] Co de Phone Number [facility] [place] [address] * POC, GLUCOSE (10/04/2024 7:32 PM EST) Glucometer, POC 163 65 - 199 mg/dL 10/04/2024 7:32 PM EST [facility] Comment:Supplemental ranges: <140 mg/dL before meals <180 mg/dL all other times of the day. Blood CAPILLARY BLOOD / Unknown 10/04/2024 7:32 PM EST 10/04/2024 7:32 PM EST Hayley Torres MD POINT OF CARE TEST O RDERABLES Performing Organization Address City/[facility] Co de Phone Number [facility] [place] [address] * EKG 12 Lead (10/04/2024 7:14 PM EST) Ventricular rate 81 BPM MUSE SYSTEM Atrial Rate 81 BPM MUSE SYSTEM P-R Interval 174 ms MUSE SYSTEM QRS Duration 112 ms MUSE SYSTEM Q-T Interval 422 ms MUSE SYSTEM QTC Calculated (Bezet) 490 ms MUSE SYSTEM Calculated P [place] 34 degrees MUSE SYSTEM Calculated R [place] 11 degrees MUSE SYSTEM Calculated T [place] 59 degrees MUSE SYSTEM INTERPRETATION Normal sinus rhythm Cannot rule out Inferior infarct , age undetermined Nonspecific T wave abnormality Borderline ECG When compared with ECG of 29-MAY-2024 14:51, Nonspecific T wave abnormality now evident in Lateral leads Confirmed by MD Robert, Deandre Guadarrama ([id number]) on 10/05/2024 3:35:42 PM MUSE SYSTEM 10/04/2024 7:14 PM EST 10/05/2024 3:35 PM EST Hayley Torres MD ECG ORDERABLES MUSE SYSTEM * POC, GLUCOSE (10/04/2024 5:07 PM EST) Glucometer, POC 95 65 - 199 mg/dL 10/04/2024 5:07 PM EST [facility] Comment:Supplemental ranges: <140 mg/dL before meals <180 mg/dL all other times of the day. Blood CAPILLARY BLOOD / Unknown 10/04/2024 5:07 PM EST 10/04/2024 5:07 PM EST Hayley Torres MD POINT OF CARE TEST O RDERABLES [facility] [place] [address] * POC, GLUCOSE (10/04/2024 4:49 PM EST) Glucometer, POC 70 65 - 199 mg/dL 10/04/2024 4:50 PM EST [facility] Comment:Supplemental ranges: <140 mg/dL before meals <180 mg/dL all other times of the day. Blood CAPILLARY BLOOD / Unknown 10/04/2024 4:49 PM EST 10/04/2024 4:50 PM EST Hayley Torres MD POINT OF CARE TEST O GILDA Performing Organization Address [facility] Co de Phone Number [facility] [place] [address] * POC, GLUCOSE (10/04/2024 11:49 AM EST) Glucometer, POC 93 65 - 199 mg/dL 10/04/2024 11:49 AM EST [facility] Comment:Supplemental ranges: <140 mg/dL before meals <180 mg/dL all other times of the day. Blood CAPILLARY BLOOD / Unknown 10/04/2024 11:49 AM EST 10/04/2024 11:49 AM EST Hayley Torres MD POINT OF CARE TEST O GILDA Performing Organization Address [facility] Co de Phone Number [facility] [place] [address] * Vancomycin, trough (10/04/2024 7:53 AM EST) Pathologist [facility] Vancomycin, Trough 19.8 10.0 - 20.0 mg/L 10/04/2024 9:16 AM EST [facility] Comment: Varies according to infection source. Blood VENOUS BLOOD SPECIMEN / Unknown Venipuncture / Unknown 10/04/2024 7:53 AM EST 10/04/2024 8:11 AM EST Hayley Torres MD CHEMISTRY ORDERABLES Performing Organization Address [facility] Co de Phone Number [facility] [place] [address] * POC, GLUCOSE (10/04/2024 7:51 AM EST) Glucometer, POC 105 65 - 199 mg/dL 10/04/2024 7:52 AM EST [facility] Comment:Supplemental ranges: <140 mg/dL before meals <180 mg/dL all other times of the day. Blood CAPILLARY BLOOD / Unknown 10/04/2024 7:51 AM EST 10/04/2024 7:52 AM EST Hayley Torres MD POINT OF CARE TEST O GILDA Performing Organization Address [facility] Co de Phone Number [facility] [place] [address] * POC, GLUCOSE (10/04/2024 3:53 AM EST) Glucometer, POC 90 65 - 199 mg/dL 10/04/2024 3:53 AM EST [facility] Comment:Supplemental ranges: <140 mg/dL before meals <180 mg/dL all other times of the day. Blood CAPILLARY BLOOD / Unknown 10/04/2024 3:53 AM EST 10/04/2024 3:53 AM EST Hayley Torres MD POINT OF CARE TEST O GILDA Performing Organization Address [facility] Co de Phone Number [facility] [place] [address] * (ABNORMAL) CBC (with Diff) (10/04/2024 12:08 AM EST) [facility] White Blood Cell 12.58(H) 4.00 - 9.50 x10(3)/mc L 10/04/2024 12:51 AM EST [facility] Red Blood Cell 3.28(L) 4.58 - 5.54 x10(6)/mc L 10/04/2024 12:51 AM EST [facility] Hemoglobin 9.4(L) 13.7 - 16.5 g/dL 10/04/2024 12:51 [address] [facility] Hematocrit 28.8(L) 40.5 - 48.5 % 10/04/2024 12:51 AM EST [facility] Mean Cell Volume 87.8 82.9 - 93.1 fL 10/04/2024 12:51 AM [facility] Mean Cell Hemoglobin 28.7 27.5 - 32.1 pg 10/04/2024 12:51 AM [facility] Mean Cell Hemoglobin Concentration 32.6 32.0 - 35.7 g/dL 10/04/2024 12:51 AM [facility] Platelet 670(H) 145 - 357 x10(3)/mc L 10/04/2024 12:51 AM [facility] Mean Platelet Volume 9.1 7.6 - 12.9 fL 10/04/2024 12:51 AM [facility] RDW Standard Deviation 44.8 36.0 - 45.0 fL 10/04/2024 12:51 AM [facility] RDW coefficient of variation 13.9(H) 11.4 - 13.8 % 10/04/2024 12:51 AM [facility] NRBC% auto 0.0 % 10/04/2024 12:51 AM [facility] NRBC Absolute <0.01 <0.01 x10(3)/mc L 10/04/2024 12:51 AM [facility] Neutrophil % 60.3 % 10/04/2024 12:51 AM [facility] Neutrophil Absolute (ANC) - Automated 7.57(H) 1.70 - 6.10 x10(3)/mc L 10/04/2024 12:51 [address] [facility] Lymph % 27.4 % 10/04/2024 12:51 AM [facility] Lymph Absolute 3.45(H) 0.90 - 3.20 x10(3)/mc L 10/04/2024 12:51 AM [facility] Monocyte % 5.4 % 10/04/2024 12:51 AM [facility] Monocyte Absolute 0.68 0.30 - 0.90 x10(3)/mc L 10/04/2024 12:51 AM [facility] Eos % 1.5 % 10/04/2024 12:51 AM [facility] Eos Absolute 0.19 0.00 - 0.40 x10(3)/mc L 10/04/2024 12:51 AM [facility] Basophil % 0.6 % 10/04/2024 12:51 AM [facility] Baso Absolute 0.08 0.00 - 0.10 x10(3)/mc L 10/04/2024 12:51 AM [facility] Immature Gran % 4.8 % 12:51 AM [facility] Immature Gran Absolute 0.61(H) 0.00 - 0.04 x10(3)/mc L 10/04/2024 12:51 AM [facility] Blood VENOUS BLOOD SPECIMEN / Unknown Venipuncture / Unknown 10/04/2024 12:08 AM EST 10/04/2024 12:15 AM EST Hayley Torres MD HEMATOLOGY ORDERABLE S [facility] [place] [phone] * (ABNORMAL) Basic Metabolic Panel (10/04/2024 12:08 AM EST) Glucose 135 65 - 199 mg/dL 10/04/2024 12:53 AM [facility] Comment:Glucose Concentratio n >=200 mg/dL plus symptoms is consistent with Diabetes Mellitus. Blood Urea Nitrogen 19 10 - 20 mg/dL 10/04/2024 12:53 AM [facility] Creatinine 0.56(L) 0.80 - 1.50 mg/dL 10/04/2024 12:53 AM [facility] Sodium 138 135 - 145 mMol/L 10/04/2024 12:53 AM [facility] Potassium 4.4 3.5 - 5.0 mMol/L 10/04/2024 12:53 AM [facility] Chloride 105 98 - 107 mMol/L 10/04/2024 12:53 AM EST [facility] Carbon Dioxide 24 22 - 31 mMol/L 10/04/2024 12:53 AM [facility] Anion Gap 9 5 - 15 mMol/L 10/04/2024 12:53 AM [facility] Calcium 8.7 8.5 - 10.5 mg/dL 10/04/2024 12:53 AM [facility] Est Glomerular Filtration Rate - Male 120 mL/min/1. 73 m?? 10/04/2024 12:53 AM [facility] Comment: This patient's estimated [...] SPECIMEN / Unknown Venipuncture / Unknown 10/04/2024 12:08 AM EST 10/04/2024 12:15 AM EST Hayley Torres MD CHEMISTRY ORDERABLES [facility] [place] [address] * Phosphorus (10/04/2024 12:08 AM EST) Phosphorus 3.7 2.5 - 4.5 mg/dL 10/04/2024 12:53 AM EST [facility] Blood VENOUS BLOOD SPECIMEN / Unknown Venipuncture / Unknown 10/04/2024 12:08 AM EST 10/04/2024 12:15 AM EST Hayley Torres MD CHEMISTRY ORDERABLES [facility] [place] [address] * Magnesium (10/04/2024 12:08 AM EST) Magnesium 0.89 0.69 - 1.07 mMol/L 10/04/2024 12:53 AM EST [facility] Blood VENOUS BLOOD SPECIMEN / Unknown Venipuncture / Unknown 10/04/2024 12:08 AM EST 10/04/2024 12:15 AM EST Hayley Torres MD CHEMISTRY ORDERABLES Performing Organization Address City/[facility]/ZIP Co de Phone Number [facility] [place] [address] * POC, GLUCOSE (10/04/2024 12:01 AM EST) Glucometer, POC 132 65 - 199 mg/dL 10/04/2024 12:02 AM EST [facility] Comment:Supplemental ranges: <140 mg/dL before meals <180 mg/dL all other times of the day. Blood CAPILLARY BLOOD / Unknown 10/04/2024 12:01 AM EST 10/04/2024 12:02 AM EST Hayley Torres MD POINT OF CARE TEST O RDERABLES Performing Organization Address [facility]/ZIP Co de Phone Number [facility] [place] [address] * POC, GLUCOSE (10/03/2024 7:56 PM EST) Glucometer, POC 123 65 - 199 mg/dL 10/03/2024 7:56 PM EST [facility] Comment:Supplemental ranges: <140 mg/dL before meals <180 mg/dL all other times of the day. Blood CAPILLARY BLOOD / Unknown 10/03/2024 7:56 PM EST 10/03/2024 7:57 PM EST Hayley Torres MD POINT OF CARE TEST O RDERABLES [facility] [place] [address] * POC, GLUCOSE (10/03/2024 5:29 PM EST) Glucometer, POC 182 65 - 199 mg/dL 10/03/2024 5:30 PM EST [facility] Comment:Supplemental ranges: <140 mg/dL before meals <180 mg/dL all other times of the day. Blood CAPILLARY BLOOD / Unknown 10/03/2024 5:29 PM EST 10/03/2024 5:30 PM EST Hayley Torres MD POINT OF CARE TEST O GILDA Performing Organization Address City/[facility]/ZIP Co de Phone Number [facility] [place] [address] * POC, GLUCOSE (10/03/2024 12:54 PM EST) Glucometer, POC 128 65 - 199 mg/dL 10/03/2024 12:54 PM EST [facility] Comment:Supplemental ranges: <140 mg/dL before meals <180 mg/dL all other times of the day. Blood CAPILLARY BLOOD / Unknown 10/03/2024 12:54 PM EST 10/03/2024 12:54 PM EST Hayley Torres MD POINT OF CARE TEST O GILDA Performing Organization Address City/[facility]/ZIP Co de Phone Number [facility] [place] [address] * POC, GLUCOSE (10/03/2024 7:59 AM EST) Glucometer, POC 115 65 - 199 mg/dL 10/03/2024 7:59 AM EST [facility] Comment:Supplemental ranges: <140 mg/dL before meals <180 mg/dL all other times of the day. Blood CAPILLARY BLOOD / Unknown 10/03/2024 7:59 AM EST 10/03/2024 7:59 AM EST Hayley Torres MD POINT OF CARE TEST O RDERAHERNANDEZ Performing Organization Address City/[facility] Co de Phone Number [facility] [place] [address] * POC, GLUCOSE (10/03/2024 5:32 AM EST) Glucometer, POC 119 65 - 199 mg/dL 10/03/2024 5:32 AM EST [facility] Comment:Supplemental ranges: <140 mg/dL before meals <180 mg/dL all other times of the day. Blood CAPILLARY BLOOD / Unknown 10/03/2024 5:32 AM EST 10/03/2024 5:32 AM EST Hayley Torres MD POINT OF CARE TEST O GILDA Performing Organization Address [facility] Co de Phone Number [facility] [place] [address] * POC, GLUCOSE (10/03/2024 4:16 AM EST) Glucometer, POC 152 65 - 199 mg/dL 10/03/2024 4:17 AM EST [facility] Comment:Supplemental ranges: <140 mg/dL before meals <180 mg/dL all other times of the day. Blood CAPILLARY BLOOD / Unknown 10/03/2024 4:16 AM EST 10/03/2024 4:17 AM EST Hayley Torres MD POINT OF CARE TEST O GILDA Performing Organization Address City/[facility] Co de Phone Number [facility] [place] [address] * (ABNORMAL) POC, GLUCOSE (10/03/2024 2:02 AM EST) Glucometer, POC 225(H) 65 - 199 mg/dL 10/03/2024 2:02 AM EST [facility] Comment:Supplemental ranges: <140 mg/dL before meals <180 mg/dL all other times of the day. Blood CAPILLARY BLOOD / Unknown 10/03/2024 2:02 AM EST 10/03/2024 2:02 AM EST Hayley Torres MD POINT OF CARE TEST O RDERABLES [facility] [place] [address] * (ABNORMAL) CBC (with Diff) (10/03/2024 12:27 AM EST) White Blood Cell 15.33(H) 4.00 - 9.50 x10(3)/mc L 10/03/2024 12:51 AM [facility] Red Blood Cell 3.59(L) 4.58 - 5.54 x10(6)/mc L 10/03/2024 12:51 AM [facility] Hemoglobin 10.4(L) 13.7 - 16.5 g/dL 10/03/2024 12:51 AM [facility] Hematocrit 31.2(L) 40.5 - 48.5 % 10/03/2024 12:51 AM [facility] Mean Cell Volume 86.9 82.9 - 93.1 fL 10/03/2024 12:51 AM [facility] Mean Cell Hemoglobin 29.0 27.5 - 32.1 pg 10/03/2024 12:51 AM [facility] Mean Cell Hemoglobin Concentration 33.3 32.0 - 35.7 g/dL 10/03/2024 12:51 AM [facility] Platelet 693(H) 145 - 357 x10(3)/mc L 10/03/2024 12:51 AM [facility] Mean Platelet Volume 9.2 7.6 - 12.9 fL 10/03/2024 12:51 AM [facility] RDW Standard Deviation 42.4 36.0 - 45.0 fL 10/03/2024 12:51 AM [facility] RDW coefficient of variation 13.6 11.4 - 13.8 % 10/03/2024 12:51 AM [facility] NRBC% auto 0.0 % 10/03/2024 12:51 AM [facility] NRBC Absolute <0.01 <0.01 x10(3)/mc L 10/03/2024 12:51 AM [facility] Neutrophil % 77.1 % 10/03/2024 12:51 AM [facility] Neutrophil Absolute (ANC) - Automated 11.83(H) 1.70 - 6.10 x10(3)/mc L 10/03/2024 12:51 AM [facility] Lymph % 13.4 % 10/03/2024 12:51 AM [facility] Lymph Absolute 2.05 0.90 - 3.20 x10(3)/mc L 10/03/2024 12:51 AM [facility] Monocyte % 2.9 % 10/03/2024 12:51 AM [facility] Monocyte Absolute 0.45 0.30 - 0.90 x10(3)/mc L 10/03/2024 12:51 AM [facility] Eos % 0.5 % 10/03/2024 12:51 AM [facility] Eos Absolute 0.07 0.00 - 0.40 x10(3)/mc L 10/03/2024 12:51 AM [facility] Basophil % 0.4 % 10/03/2024 12:51 AM [facility] Baso Absolute 0.06 0.00 - 0.10 x10(3)/mc L 10/03/2024 12:51 AM [facility] Immature Gran % 5.7 % 12:51 AM [facility] Immature Gran Absolute 0.87(H) 0.00 - 0.04 x10(3)/mc L 10/03/2024 12:51 AM [facility] Blood VENOUS BLOOD SPECIMEN / Unknown Venipuncture / Unknown 10/03/2024 12:27 AM EST 10/03/2024 12:47 AM EST Hayley Torres MD HEMATOLOGY ORDERABLE S [facility] [place] [address] * (ABNORMAL) Basic Metabolic Panel (10/03/2024 12:27 AM EST) Glucose 208(H) 65 - 199 mg/dL 10/03/2024 1:14 AM EST [facility] Comment:Glucose Concentratio n >=200 mg/dL plus symptoms is consistent with Diabetes Mellitus. Blood Urea Nitrogen 15 10 - 20 mg/dL 10/03/2024 1:14 [address] [facility] Creatinine 0.51(L) 0.80 - 1.50 mg/dL 10/03/2024 1:14 [address] [facility] Sodium 136 135 - 145 mMol/L 10/03/2024 1:14 [address] [facility] Potassium 4.1 3.5 - 5.0 mMol/L 10/03/2024 1:[address] [facility] Chloride 103 98 - 107 mMol/L 10/03/2024 1:14 AM [facility] Carbon Dioxide 20(L) 22 - 31 mMol/L 10/03/2024 1:[address] [facility] Anion Gap 13 5 - 15 mMol/L 10/03/2024 1:14 [address] [facility] Calcium 8.4(L) 8.5 - 10.5 mg/dL 10/03/2024 1:14 AM EST [facility] Est Glomerular Filtration Rate - Male 124 mL/min/1. 73 m?? 10/03/2024 1:14 AM [facility] Comment: This patient's estimated [...] BLOOD SPECIMEN / Unknown Venipuncture / Unknown 10/03/2024 12:27 AM EST 10/03/2024 12:47 AM EST Hayley Torres MD CHEMISTRY ORDERABLES [facility] [place] [address] * Phosphorus (10/03/2024 12:27 AM EST) Phosphorus 3.5 2.5 - 4.5 mg/dL 10/03/2024 1:14 AM EST [facility] Blood VENOUS BLOOD SPECIMEN / Unknown Venipuncture / Unknown 10/03/2024 12:27 AM EST 10/03/2024 12:47 AM EST Hayley Torres MD CHEMISTRY ORDERABLES Performing Organization Address City/[facility]/ZIP Co de Phone Number [facility] [place] [address] * Magnesium (10/03/2024 12:27 AM EST) Magnesium 0.83 0.69 - 1.07 mMol/L 10/03/2024 1:14 AM EST [facility] Blood VENOUS BLOOD SPECIMEN / Unknown Venipuncture / Unknown 10/03/2024 12:27 AM EST 10/03/2024 12:47 AM EST Hayley Torres MD CHEMISTRY ORDERABLES [facility] [place] [address] * (ABNORMAL) POC, GLUCOSE (10/03/2024 12:13 AM EST) Glucometer, POC 255(H) 65 - 199 mg/dL 10/03/2024 12:14 AM EST [facility] Comment:Supplemental ranges: <140 mg/dL before meals <180 mg/dL all other times of the day. Blood CAPILLARY BLOOD / Unknown 10/03/2024 12:13 AM EST 10/03/2024 12:14 AM EST Hayley Torres MD POINT OF CARE TEST O GILDA Performing Organization Address City/[facility]/ZIP Co de Phone Number [facility] [place] [address] * POC, GLUCOSE (10/02/2024 8:17 PM EST) Glucometer, POC 177 65 - 199 mg/dL 10/02/2024 8:17 PM EST [facility] Comment:Supplemental ranges: <140 mg/dL before meals <180 mg/dL all other times of the day. Blood CAPILLARY BLOOD / Unknown 10/02/2024 8:17 PM EST 10/02/2024 8:17 PM EST Hayley Torres MD POINT OF CARE TEST O GILDA Performing Organization Address City/[facility]/ZIP Co de Phone Number [facility] [place] [address] * POC, GLUCOSE (10/02/2024 6:22 PM EST) Glucometer, POC 172 65 - 199 mg/dL 10/02/2024 6:22 PM EST [facility] Comment:Supplemental ranges: <140 mg/dL before meals <180 mg/dL all other times of the day. Blood CAPILLARY BLOOD / Unknown 10/02/2024 6:22 PM EST 10/02/2024 6:22 PM EST Hayley Torres MD POINT OF CARE TEST O GILDA [facility] [place] [place] [address] * POC, GLUCOSE (10/02/2024 5:01 PM EST) Glucometer, POC 104 65 - 199 mg/dL 10/02/2024 5:01 PM EST [facility] Comment:Supplemental ranges: <140 mg/dL before meals <180 mg/dL all other times of the day. Blood CAPILLARY BLOOD / Unknown 10/02/2024 5:01 PM EST 10/02/2024 5:01 PM EST Hayley Torres MD POINT OF CARE TEST O GILDA [facility] [place] [address] * POC, GLUCOSE (10/02/2024 3:05 PM EST) Glucometer, POC 113 65 - 199 mg/dL 10/02/2024 3:06 PM EST [facility] Comment:Supplemental ranges: <140 mg/dL before meals <180 mg/dL all other times of the day. Blood CAPILLARY BLOOD / Unknown 10/02/2024 3:05 PM EST 10/02/2024 3:06 PM EST Hayley Torres MD POINT OF CARE TEST O GILDA [facility] [place] [address] * POC, GLUCOSE (10/02/2024 11:12 AM EST) Glucometer, POC 146 65 - 199 mg/dL 10/02/2024 11:12 AM EST [facility] Comment:Supplemental ranges: <140 mg/dL before meals <180 mg/dL all other times of the day. Blood CAPILLARY BLOOD / Unknown 10/02/2024 11:12 AM EST 10/02/2024 11:12 AM EST Hayley Torres MD POINT OF CARE TEST O RDERAHERNANDEZ Performing Organization Address [facility] Co de Phone Number [facility] [place] [address] * POC, GLUCOSE (10/02/2024 8:12 AM EST) Glucometer, POC 131 65 - 199 mg/dL 10/02/2024 8:12 AM EST [facility] Comment:Supplemental ranges: <140 mg/dL before meals <180 mg/dL all other times of the day. Blood CAPILLARY BLOOD / Unknown 10/02/2024 8:12 AM EST 10/02/2024 8:12 AM EST Hayley Torres MD POINT OF CARE TEST O GILDA Performing Organization Address [facility] de Phone Number [facility] [place] [address] * POC, GLUCOSE (10/02/2024 4:19 AM EST) Glucometer, POC 131 65 - 199 mg/dL 10/02/2024 4:19 AM EST [facility] Comment:Supplemental ranges: <140 mg/dL before meals <180 mg/dL all other times of the day. Blood CAPILLARY BLOOD / Unknown 10/02/2024 4:19 AM EST 10/02/2024 4:19 AM EST Hayley Torres MD POINT OF CARE TEST O GILDA Performing Organization Address City/[facility] Co de Phone Number [facility] [place] [address] * Phosphorus (10/02/2024 12:41 AM EST) Phosphorus 4.1 2.5 - 4.5 mg/dL 10/02/2024 1:21 AM EST [facility] Blood VENOUS BLOOD SPECIMEN / Unknown Venipuncture / Unknown 10/02/2024 12:41 AM EST 10/02/2024 12:45 AM EST Hayley Torres MD CHEMISTRY ORDERABLES [facility] [place] [address] * Magnesium (10/02/2024 12:41 AM EST) Pathologist [facility] Magnesium 0.85 0.69 - 1.07 mMol/L 10/02/2024 1:21 AM [facility] Blood VENOUS BLOOD SPECIMEN / Unknown Venipuncture / Unknown 10/02/2024 12:41 AM EST 10/02/2024 12:45 AM EST Hayley Torres MD CHEMISTRY ORDERABLES Performing Organization Address City/[facility]/ZIP Co de Phone Number [facility] [place] [address] * (ABNORMAL) Basic Metabolic Panel (10/02/2024 12:41 AM EST) [facility] Glucose 113 65 - 199 mg/dL 10/02/2024 1:21 AM [facility] Comment:Glucose Concentratio n >=200 mg/dL plus symptoms is consistent with Diabetes Mellitus. Blood Urea Nitrogen 11 10 - 20 mg/dL 10/02/2024 1:21 AM [facility] Creatinine 0.49(L) 0.80 - 1.50 mg/dL 10/02/2024 1:21 AM [facility] Sodium 138 135 - 145 mMol/L 10/02/2024 1:21 AM [facility] Potassium 3.9 3.5 - 5.0 mMol/L 10/02/2024 1:21 AM [facility] Chloride 105 98 - 107 mMol/L 10/02/2024 1:21 AM [facility] Carbon Dioxide 23 22 - 31 mMol/L 10/02/2024 1:21 AM [facility] Anion Gap 10 5 - 15 mMol/L 10/02/2024 1:21 AM EST [facility] Calcium 8.2(L) 8.5 - 10.5 mg/dL 10/02/2024 1:21 AM [facility] Est Glomerular Filtration Rate - Male 125 mL/min/1. 73 m?? 10/02/2024 1:21 AM [facility] Comment: This patient's estimated [...] BLOOD SPECIMEN / Unknown Venipuncture / Unknown 10/02/2024 12:41 AM EST 10/02/2024 12:45 AM EST Hayley Torres MD CHEMISTRY ORDERABLES [facility] [place] [address] * (ABNORMAL) CBC (with Diff) (10/02/2024 12:41 AM EST) White Blood Cell 10.93(H) 4.00 - 9.50 x10(3)/mc L 10/02/2024 1:04 AM [facility] Red Blood Cell 3.30(L) 4.58 - 5.54 x10(6)/mc L 10/02/2024 1:04 AM [facility] Hemoglobin 9.6(L) 13.7 - 16.5 g/dL 10/02/2024 1:04 AM [facility] Hematocrit 28.6(L) 40.5 - 48.5 % 10/02/2024 1:04 AM [facility] Mean Cell Volume 86.7 82.9 - 93.1 fL 10/02/2024 1:04 AM [facility] Mean Cell Hemoglobin 29.1 27.5 - 32.1 pg 10/02/2024 1:04 AM [facility] Mean Cell Hemoglobin Concentration 33.6 32.0 - 35.7 g/dL 10/02/2024 1:04 AM [facility] Platelet 546(H) 145 - 357 x10(3)/mc L 10/02/2024 1:04 AM [facility] Mean Platelet Volume 9.0 7.6 - 12.9 fL 10/02/2024 1:04 AM [facility] RDW Standard Deviation 42.7 36.0 - 45.0 fL 10/02/2024 1:04 AM [facility] RDW coefficient of variation 13.3 11.4 - 13.8 % 10/02/2024 1:04 AM [facility] NRBC% auto 0.0 % 10/02/2024 1:04 AM [facility] NRBC Absolute <0.01 <0.01 x10(3)/mc L 10/02/2024 1:04 AM [facility] Neutrophil % 58.4 % 10/02/2024 1:04 AM [facility] Neutrophil Absolute (ANC) - Automated 6.38(H) 1.70 - 6.10 x10(3)/mc L 10/02/2024 1:04 AM [facility] Lymph % 23.9 % 10/02/2024 1:04 AM [facility] Lymph Absolute 2.61 0.90 - 3.20 x10(3)/mc L 10/02/2024 1:04 AM [facility] Monocyte % 5.6 % 10/02/2024 1:04 AM [facility] Monocyte Absolute 0.61 0.30 - 0.90 x10(3)/mc L 10/02/2024 1:04 AM [facility] Eos % 1.6 % 10/02/2024 1:04 AM EST [facility] Eos Absolute 0.18 0.00 - 0.40 x10(3)/mc L 10/02/2024 1:04 AM EST [facility] Basophil % 0.8 % 10/02/2024 1:04 AM EST [facility] Baso Absolute 0.09 0.00 - 0.10 x10(3)/mc L 10/02/2024 1:04 AM EST [facility] Immature Gran % 9.7 % 1:04 AM [facility] Immature Gran Absolute 1.06(H) 0.00 - 0.04 x10(3)/mc L 10/02/2024 1:04 AM [facility] Blood VENOUS BLOOD SPECIMEN / Unknown Venipuncture / Unknown 10/02/2024 12:41 AM EST 10/02/2024 12:45 AM EST Hayley Torres MD HEMATOLOGY ORDERABLE S [facility] [place] [address] * POC, GLUCOSE (10/02/2024 12:40 AM EST) Glucometer, POC 116 65 - 199 mg/dL 10/02/2024 12:41 AM EST [facility] Comment:Supplemental ranges: <140 mg/dL before meals <180 mg/dL all other times of the day. Blood CAPILLARY BLOOD / Unknown 10/02/2024 12:40 AM EST 10/02/2024 12:41 AM EST Hayley Torres MD POINT OF CARE TEST O RDERABLES [facility] [place] [address] * POC, GLUCOSE (10/01/2024 8:11 PM EST) Glucometer, POC 123 65 - 199 mg/dL 10/01/2024 8:11 PM EST [facility] Comment:Supplemental ranges: <140 mg/dL before meals <180 mg/dL all other times of the day. Blood CAPILLARY BLOOD / Unknown 10/01/2024 8:11 PM EST 10/01/2024 8:11 PM EST Hayley Torres MD POINT OF CARE TEST O GILDA Performing Organization Address City/[facility]/ZIP Co de Phone Number [facility] [place] [address] * POC, GLUCOSE (10/01/2024 6:00 PM EST) Glucometer, POC 112 65 - 199 mg/dL 10/01/2024 6:00 PM EST [facility] Comment:Supplemental ranges: <140 mg/dL before meals <180 mg/dL all other times of the day. Blood CAPILLARY BLOOD / Unknown 10/01/2024 6:00 PM EST 10/01/2024 6:00 PM EST Hayley Torres MD POINT OF CARE TEST O GILDA Performing Organization Address [facility] Co de Phone Number [facility] [place] [address] * POC, GLUCOSE (10/01/2024 3:53 PM EST) Glucometer, POC 97 65 - 199 mg/dL 10/01/2024 3:53 PM EST [facility] Comment:Supplemental ranges: <140 mg/dL before meals <180 mg/dL all other times of the day. Blood CAPILLARY BLOOD / Unknown 10/01/2024 3:53 PM EST 10/01/2024 3:53 PM EST Hayley Torres MD POINT OF CARE TEST O GILDA Performing Organization Address City/[facility]/ZIP Co de Phone Number [facility] [place] [address] * POC, GLUCOSE (10/01/2024 2:25 PM EST) Glucometer, POC 117 65 - 199 mg/dL 10/01/2024 2:25 PM EST [facility] Comment:Supplemental ranges: <140 mg/dL before meals <180 mg/dL all other times of the day. Blood CAPILLARY BLOOD / Unknown 10/01/2024 2:25 PM EST 10/01/2024 2:25 PM EST Hayley Torres MD POINT OF CARE TEST O GILDA Performing Organization Address [facility] Co de Phone Number [facility] [place] [address] * POC, GLUCOSE (10/01/2024 11:43 AM EST) Glucometer, POC 174 65 - 199 mg/dL 10/01/2024 11:43 AM EST [facility] Comment:Supplemental ranges: <140 mg/dL before meals <180 mg/dL all other times of the day. Blood CAPILLARY BLOOD / Unknown 10/01/2024 11:43 AM EST 10/01/2024 11:43 AM EST Hayley Torres MD POINT OF CARE TEST O GILDA Performing Organization Address [facility]/ZIP Co de Phone Number [facility] [place] [address] * POC, GLUCOSE (10/01/2024 9:43 AM EST) Glucometer, POC 191 65 - 199 mg/dL 10/01/2024 9:43 AM EST [facility] Comment:Supplemental ranges: <140 mg/dL before meals <180 mg/dL all other times of the day. Blood CAPILLARY BLOOD / Unknown 10/01/2024 9:43 AM EST 10/01/2024 9:43 AM EST Hayley Torres MD POINT OF CARE TEST O GILDA [facility] [place] [address] * POC, GLUCOSE (10/01/2024 7:48 AM EST) Glucometer, POC 151 65 - 199 mg/dL 10/01/2024 7:48 AM EST [facility] Comment:Supplemental ranges: <140 mg/dL before meals <180 mg/dL all other times of the day. Blood CAPILLARY BLOOD / Unknown 10/01/2024 7:48 AM EST 10/01/2024 7:48 AM EST Hayley Torres MD POINT OF CARE TEST O RDERAHERNANDEZ Performing Organization Address [facility]/ZIP Co de Phone Number [facility] [place] [address] * POC, GLUCOSE (10/01/2024 4:25 AM EST) Glucometer, POC 133 65 - 199 mg/dL 10/01/2024 4:26 AM EST [facility] Comment:Supplemental ranges: <140 mg/dL before meals <180 mg/dL all other times of the day. Blood CAPILLARY BLOOD / Unknown 10/01/2024 4:25 AM EST 10/01/2024 4:26 AM EST Hayley Torres MD POINT OF CARE TEST O RDERAHERNANDEZ Performing Organization Address City/[facility]/ZIP Co de Phone Number [facility] [place] [address] * Phosphorus (10/01/2024 2:02 AM EST) Phosphorus 3.9 2.5 - 4.5 mg/dL 10/01/2024 7:16 AM EST [facility] Blood VENOUS BLOOD SPECIMEN / Unknown Venipuncture / Unknown 10/01/2024 2:02 AM EST 10/01/2024 2:10 AM EST Hayley Torres MD CHEMISTRY ORDERABLES [facility] [place] [address] * (ABNORMAL) Scan, Peripheral Blood (10/01/2024 2:02 AM EST) Pathologist [facility] RBC Morphology Abnormal 10/01/2024 2:55 AM EST [facility] Platelet Estimate Increased(A) Normal 10/01 2:55 AM EST [facility] Polychromasia Present 10/01/2024 2:55 AM EST [facility] Platelet Clumps Present(A) (none) 2:55 AM EST [facility] Blood VENOUS BLOOD SPECIMEN / Unknown Venipuncture / Unknown 10/01/2024 2:02 AM EST 10/01/2024 2:10 AM EST Hayley Torres MD HEMATOLOGY ORDERABLE S Performing Organization Address [facility]/ZIP Co de Phone Number [facility] [place] [address] * Magnesium (10/01/2024 2:02 AM EST) Pathologist [facility] Magnesium 0.79 0.69 - 1.07 mMol/L 10/01/2024 2:41 AM EST [facility] Blood VENOUS BLOOD SPECIMEN / Unknown Venipuncture / Unknown 10/01/2024 2:02 AM EST 10/01/2024 2:10 AM EST Hayley Torres MD CHEMISTRY ORDERABLES Performing Organization Address City/[facility]/ZIP Co de Phone Number [facility] [place] [address] * (ABNORMAL) Basic Metabolic Panel (10/01/2024 2:02 AM EST) Pathologist [facility] Glucose 122 65 - 199 mg/dL 10/01/2024 2:41 AM EST [facility] Comment:Glucose Concentratio n >=200 mg/dL plus symptoms is consistent with Diabetes Mellitus. Blood Urea Nitrogen 10 10 - 20 mg/dL 10/01/2024 2:41 AM EST [facility] Creatinine 0.47(L) 0.80 - 1.50 mg/dL 10/01/2024 2:41 AM EST [facility] Sodium 138 135 - 145 mMol/L 10/01/2024 2:41 AM [facility] Potassium 3.9 3.5 - 5.0 mMol/L 10/01/2024 2:41 AM EST [facility] Chloride 105 98 - 107 mMol/L 10/01/2024 2:41 AM [facility] Carbon Dioxide 24 22 - 31 mMol/L 10/01/2024 2:41 AM [facility] Anion Gap 9 5 - 15 mMol/L 10/01/2024 2:41 AM [facility] Calcium 8.1(L) 8.5 - 10.5 mg/dL 10/01/2024 2:41 AM [facility] Est Glomerular Filtration Rate - Male 127 mL/min/1. 73 m?? 10/01/2024 2:41 AM [facility] Comment: This patient's estimated [...] 10/01/2024 2:10 AM EST Hayley Torres MD CHEMISTRY ORDERABLES [facility] [place] [address] * (ABNORMAL) CBC (with Diff) (10/01/2024 2:02 AM EST) White Blood Cell 10.15(H) 4.00 - 9.50 x10(3)/mc L 10/01/2024 2:55 AM [facility] Red Blood Cell 3.14(L) 4.58 - 5.54 x10(6)/mc L 10/01/2024 2:55 AM [facility] Hemoglobin 9.1(L) 13.7 - 16.5 g/dL 10/01/2024 2:55 AM [facility] Hematocrit 26.9(L) 40.5 - 48.5 % 10/01/2024 2:55 AM [facility] Mean Cell Volume 85.7 82.9 - 93.1 fL 10/01/2024 2:55 AM [facility] Mean Cell Hemoglobin 29.0 27.5 - 32.1 pg 10/01/2024 2:55 AM [facility] Mean Cell Hemoglobin Concentration 33.8 32.0 - 35.7 g/dL 10/01/2024 2:55 AM [facility] Platelet 444(H) 145 - 357 x10(3)/mc L 10/01/2024 2:55 AM [facility] Mean Platelet Volume 8.9 7.6 - 12.9 fL 10/01/2024 2:55 AM [facility] RDW Standard Deviation 41.2 36.0 - 45.0 fL 10/01/2024 2:55 AM [facility] RDW coefficient of variation 13.2 11.4 - 13.8 % 10/01/2024 2:55 AM [facility] NRBC% auto 0.0 % 10/01/2024 2:55 AM [facility] NRBC Absolute <0.01 <0.01 x10(3)/mc L 10/01/2024 2:55 AM [facility] Neutrophil % 59.5 % 10/01/2024 2:55 AM [facility] Comment:This is an appended report. These results have been appended to a previously preliminary verified report. Neutrophil Absolute (ANC) - Automated 6.05 1.70 - 6.10 x10(3)/mc L 10/01/2024 2:55 AM [facility] Comment:This is an appended report. These results have been appended to a previously preliminary verified report. Lymph % 22.3 % 10/01/2024 2:55 AM [facility] Comment:This is an appended report. These results have been appended to a previously preliminary verified report. Lymph Absolute 2.26 0.90 - 3.20 x10(3)/mc L 10/01/2024 2:55 AM [facility] Comment:This is an appended report. These results have been appended to a previously preliminary verified report. Monocyte % 7.4 % 10/01/2024 2:55 AM [facility] Comment:This is an appended report. These results have been appended to a previously preliminary verified report. Monocyte Absolute 0.75 0.30 - 0.90 x10(3)/mc L 10/01/2024 2:55 AM [facility] Comment:This is an appended report. These results have been appended to a previously preliminary verified report. Eos % 1.8 % 10/01/2024 2:55 AM [facility] Comment:This is an appended report. These results have been appended to a previously preliminary verified report. Eos Absolute 0.18 0.00 - 0.40 x10(3)/mc L 10/01/2024 2:55 AM [facility] Comment:This is an appended report. These results have been appended to a previously preliminary verified report. Basophil % 0.6 % 10/01/2024 2:55 AM [facility] Comment:This is an appended report. These results have been appended to a previously preliminary verified report. Baso Absolute 0.06 0.00 - 0.10 x10(3)/mc L 10/01/2024 2:55 AM EST [facility] Comment:This is an appended report. These results have been appended to a previously preliminary verified report. Immature Gran % 8.4 % 2:55 AM EST [facility] Comment:This is an appended report. These results have been appended to a previously preliminary verified report. Immature Gran Absolute 0.85(H) 0.00 - 0.04 x10(3)/mc L 10/01/2024 2:55 AM EST [facility] Comment:This is an appended report. These results have been appended to a previously preliminary verified report. Blood VENOUS BLOOD SPECIMEN / Unknown Venipuncture / Unknown 10/01/2024 2:02 AM EST 10/01/2024 2:10 AM EST Hayley Torres MD HEMATOLOGY ORDERABLE S Performing Organization Address City/[facility]/ZIP Co de Phone Number [facility] [place] [address] * POC, GLUCOSE (10/01/2024 12:32 AM EST) Glucometer, POC 179 65 - 199 mg/dL 10/01/2024 12:32 AM EST [facility] Comment:Supplemental ranges: <140 mg/dL before meals <180 mg/dL all other times of the day. Blood CAPILLARY BLOOD / Unknown 10/01/2024 12:32 AM EST 10/01/2024 12:32 AM EST Hayley Torres MD POINT OF CARE TEST O RDERABLES Performing Organization Address City/[facility]/ZIP Co de Phone Number [facility] [place] [address] * POC, GLUCOSE (09/30/2024 7:37 PM EST) Glucometer, POC 140 65 - 199 mg/dL 09/30/2024 7:38 PM EST [facility] Comment:Supplemental ranges: <140 mg/dL before meals <180 mg/dL all other times of the day. Blood CAPILLARY BLOOD / Unknown 09/30/2024 7:37 PM EST 09/30/2024 7:38 PM EST Hayley Torres MD POINT OF CARE TEST O GILDA Performing Organization Address City/[facility]/ZIP Co de Phone Number [facility] [place] [address] * POC, GLUCOSE (09/30/2024 4:29 PM EST) Glucometer, POC 126 65 - 199 mg/dL 09/30/2024 4:30 PM EST [facility] Comment:Supplemental ranges: <140 mg/dL before meals <180 mg/dL all other times of the day. Blood CAPILLARY BLOOD / Unknown 09/30/2024 4:29 PM EST 09/30/2024 4:30 PM EST Hayley Torres MD POINT OF CARE TEST O GILDA Performing Organization Address [facility]/ZIP Co de Phone Number [facility] [place] [address] * POC, GLUCOSE (09/30/2024 12:16 PM EST) Glucometer, POC 107 65 - 199 mg/dL 09/30/2024 12:16 PM EST [facility] Comment:Supplemental ranges: <140 mg/dL before meals <180 mg/dL all other times of the day. Blood CAPILLARY BLOOD / Unknown 09/30/2024 12:16 PM EST 09/30/2024 12:16 PM EST Hayley Torres MD POINT OF CARE TEST O GILDA [facility] [place] [address] * POC, GLUCOSE (09/30/2024 7:58 AM EST) Glucometer, POC 92 65 - 199 mg/dL 09/30/2024 7:58 AM EST [facility] Comment:Supplemental ranges: <140 mg/dL before meals <180 mg/dL all other times of the day. Blood CAPILLARY BLOOD / Unknown 09/30/2024 7:58 AM EST 09/30/2024 7:58 AM EST Hayley Torres MD POINT OF CARE TEST O RDERABLES Performing Organization Address City/[facility]/ZIP Co de Phone Number [facility] [place] [address] * Potassium (09/30/2024 6:27 AM EST) Potassium 3.9 3.5 - 5.0 mMol/L 09/30/2024 7:10 AM EST [facility] Blood VENOUS BLOOD SPECIMEN / Unknown Venipuncture / Unknown 09/30/2024 6:27 AM EST 09/30/2024 6:35 AM EST Hayley Torres MD CHEMISTRY ORDERABLES Performing Organization Address [facility] Co de Phone Number [facility] [place] [address] * Vancomycin, trough (09/30/2024 6:27 AM EST) Vancomycin, Trough 14.1 10.0 - 20.0 mg/L 09/30/2024 7:10 AM EST [facility] Comment: Varies according to infection source. Blood VENOUS BLOOD SPECIMEN / Unknown Venipuncture / Unknown 09/30/2024 6:27 AM EST 09/30/2024 6:35 AM EST Hayley Torres MD CHEMISTRY ORDERABLES Performing Organization Address City/[facility] Co de Phone Number [facility] [place] [address] * POC, GLUCOSE (09/30/2024 3:51 AM EST) Glucometer, POC 134 65 - 199 mg/dL 09/30/2024 3:51 AM EST [facility] Comment:Supplemental ranges: <140 mg/dL before meals <180 mg/dL all other times of the day. Blood CAPILLARY BLOOD / Unknown 09/30/2024 3:51 AM EST 09/30/2024 3:51 AM EST Hayley Torres MD POINT OF CARE TEST O RDERABLES Performing Organization Address [facility] [facility] Co de Phone Number [facility] [place] [place] [address] * Magnesium (09/29/2024 11:52 PM EST) Magnesium 0.85 0.69 - 1.07 mMol/L 09/30/2024 12:25 AM [facility] Blood VENOUS BLOOD SPECIMEN / Unknown Venipuncture / Unknown 09/29/2024 11:52 PM EST 09/29/2024 11:58 PM EST Hayley Torres MD CHEMISTRY ORDERABLES Performing Organization Address City/[facility] Co de Phone Number [facility] [place] [address] * (ABNORMAL) Basic Metabolic Panel (09/29/2024 11:52 PM EST) Glucose 133 65 - 199 mg/dL 09/30/2024 12:51 AM [facility] Comment:Glucose Concentratio n >=200 mg/dL plus symptoms is consistent with Diabetes Mellitus. Blood Urea Nitrogen 9(L) 10 - 20 mg/dL 09/30/2024 12:51 AM [facility] Creatinine 0.48(L) 0.80 - 1.50 mg/dL 09/30/2024 12:51 AM [facility] Sodium 138 135 - 145 mMol/L 09/30/2024 12:51 AM [facility] Potassium 3.4(L) 3.5 - 5.0 mMol/L 09/30/2024 12:51 AM [facility] Chloride 103 98 - 107 mMol/L 09/30/2024 12:51 AM [facility] Carbon Dioxide 24 22 - 31 mMol/L 09/30/2024 12:51 AM [facility] Anion Gap 11 5 - 15 mMol/L 09/30/2024 12:51 AM [facility] Calcium 8.1(L) 8.5 - 10.5 mg/dL 09/30/2024 12:51 AM [facility] Est Glomerular Filtration Rate - Male 126 mL/min/1. 73 m?? 09/30/2024 12:51 AM [facility] Comment: This patient's estimated [...] SPECIMEN / Unknown Venipuncture / Unknown 09/29/2024 11:52 PM EST 09/29/2024 11:58 PM EST Hayley Torres MD CHEMISTRY ORDERABLES [facility] [place] [address] * (ABNORMAL) CBC (with Diff) (09/29/2024 11:52 PM EST) White Blood Cell 9.54(H) 4.00 - 9.50 x10(3)/mc L 09/30/2024 12:02 AM [facility] Red Blood Cell 3.04(L) 4.58 - 5.54 x10(6)/mc L 09/30/2024 12:02 AM [facility] Hemoglobin 8.7(L) 13.7 - 16.5 g/dL 09/30/2024 12:02 AM [facility] Hematocrit 25.8(L) 40.5 - 48.5 % 09/30/2024 12:02 AM [facility] Mean Cell Volume 84.9 82.9 - 93.1 fL 09/30/2024 12:02 AM [facility] Mean Cell Hemoglobin 28.6 27.5 - 32.1 pg 09/30/2024 12:02 AM [facility] Mean Cell Hemoglobin Concentration 33.7 32.0 - 35.7 g/dL 09/30/2024 12:02 AM [facility] Platelet 411(H) 145 - 357 x10(3)/mc L 09/30/2024 12:02 AM [facility] Mean Platelet Volume 8.8 7.6 - 12.9 fL 09/30/2024 12:02 AM [facility] RDW Standard Deviation 41.4 36.0 - 45.0 fL 09/30/2024 12:02 AM [facility] RDW coefficient of variation 13.4 11.4 - 13.8 % 09/30/2024 12:02 AM [facility] NRBC% auto 0.0 % 09/30/2024 12:02 AM [facility] NRBC Absolute <0.01 <0.01 x10(3)/mc L 09/30/2024 12:02 AM [facility] Neutrophil % 64.5 % 09/30/2024 12:02 AM [facility] Neutrophil Absolute (ANC) - Automated 6.16(H) 1.70 - 6.10 x10(3)/mc L 09/30/2024 12:02 [address] [facility] Lymph % 23.1 % 09/30/2024 12:02 AM [facility] Lymph Absolute 2.20 0.90 - 3.20 x10(3)/mc L 09/30/2024 12:02 AM [facility] Monocyte % 8.0 % 09/30/2024 12:02 AM [facility] Monocyte Absolute 0.76 0.30 - 0.90 x10(3)/mc L 09/30/2024 12:02 [address] [facility] Eos % 1.5 % 09/30/2024 12:02 AM [facility] Eos Absolute 0.14 0.00 - 0.40 x10(3)/mc L 09/30/2024 12:02 AM [facility] Basophil % 0.3 % 09/30/2024 12:02 AM [facility] Baso Absolute <0.04 0.00 - 0.10 x10(3)/mc L 09/30/2024 12:02 AM [facility] Immature Gran % 2.6 % 12:02 AM [facility] Immature Gran Absolute 0.25(H) 0.00 - 0.04 x10(3)/mc L 09/30/2024 12:02 AM [facility] Blood VENOUS BLOOD SPECIMEN / Unknown Venipuncture / Unknown 09/29/2024 11:52 PM EST 09/29/2024 11:58 PM EST Hayley Torres MD HEMATOLOGY ORDERABLE S [facility] [place] [address] * POC, GLUCOSE (09/29/2024 11:51 PM EST) Glucometer, POC 134 65 - 199 mg/dL 09/29/2024 11:51 PM EST [facility] Comment:Supplemental ranges: <140 mg/dL before meals <180 mg/dL all other times of the day. Blood CAPILLARY BLOOD / Unknown 09/29/2024 11:51 PM EST 09/29/2024 11:51 PM EST Hayley Torres MD POINT OF CARE TEST O RDERABLES Performing Organization Address [facility] Co de Phone Number [facility] [place] [address] * Blood culture (09/29/2024 9:24 PM EST) Blood Culture No growth at 120 hours 10/04/2024 11:01 PM EST [facility] Blood VENOUS BLOOD SPECIMEN / Unknown Venipuncture / Unknown 09/29/2024 9:24 PM EST 09/29/2024 9:34 PM EST Hayley Torres MD MICROBIOLOGY - BLOOD ORDERABLES Performing Organization Address [facility] Co de Phone Number [facility] [place] [address] * Blood culture (09/29/2024 9:24 PM EST) Blood Culture No growth at 120 hours 10/04/2024 11:01 PM EST [facility] Blood VENOUS BLOOD SPECIMEN / Unknown Venipuncture / Unknown 09/29/2024 9:24 PM EST 09/29/2024 9:34 PM EST Marko Dickson MD MICROBIOLOGY - BLOOD ORDERABLES Performing Organization Address [facility] Co de Phone Number [facility] [place] [address] * (ABNORMAL) POC, GLUCOSE (09/29/2024 7:35 PM EST) Glucometer, POC 202(H) 65 - 199 mg/dL 09/29/2024 7:36 PM EST [facility] Comment:Supplemental ranges: <140 mg/dL before meals <180 mg/dL all other times of the day. Blood CAPILLARY BLOOD / Unknown 09/29/2024 7:35 PM EST 09/29/2024 7:36 PM EST Hayley Torres MD POINT OF CARE TEST O RDERABLES Performing Organization Address City/[facility] Co de Phone Number [facility] [place] [address] * POC, GLUCOSE (09/29/2024 6:48 PM EST) Glucometer, POC 161 65 - 199 mg/dL 09/29/2024 6:48 PM EST [facility] Comment:Supplemental ranges: <140 mg/dL before meals <180 mg/dL all other times of the day. Blood CAPILLARY BLOOD / Unknown 09/29/2024 6:48 PM EST 09/29/2024 6:49 PM EST Hayley Torres MD POINT OF CARE TEST O GILDA Performing Organization Address [facility] de Phone Number [facility] [place] [address] * POC, GLUCOSE (09/29/2024 4:06 PM EST) Glucometer, POC 122 65 - 199 mg/dL 09/29/2024 4:06 PM EST [facility] Comment:Supplemental ranges: <140 mg/dL before meals <180 mg/dL all other times of the day. Blood CAPILLARY BLOOD / Unknown 09/29/2024 4:06 PM EST 09/29/2024 4:06 PM EST Hayley Torres MD POINT OF CARE TEST O GILDA Performing Organization Address [facility] Co de Phone Number [facility] [place] [address] * POC, GLUCOSE (09/29/2024 11:49 AM EST) Glucometer, POC 135 65 - 199 mg/dL 09/29/2024 11:49 AM EST [facility] Comment:Supplemental ranges: <140 mg/dL before meals <180 mg/dL all other times of the day. Blood CAPILLARY BLOOD / Unknown 09/29/2024 11:49 AM EST 09/29/2024 11:50 AM EST Hayley Torres MD POINT OF CARE TEST O RDERAHERNANDEZ Performing Organization Address [facility] Co de Phone Number [facility] [place] [address] * (ABNORMAL) POC, GLUCOSE (09/29/2024 7:53 AM EST) Glucometer, POC 202(H) 65 - 199 mg/dL 09/29/2024 7:53 AM EST [facility] Comment:Supplemental ranges: <140 mg/dL before meals <180 mg/dL all other times of the day. Blood CAPILLARY BLOOD / Unknown 09/29/2024 7:53 AM EST 09/29/2024 7:53 AM EST Hayley Torres MD POINT OF CARE TEST O DIMITRIERAHERNANDEZ Performing Organization Address [facility] Co de Phone Number [facility] [place] [address] * POC, GLUCOSE (09/29/2024 3:45 AM EST) Glucometer, POC 184 65 - 199 mg/dL 09/29/2024 3:46 AM EST [facility] Comment:Supplemental ranges: <140 mg/dL before meals <180 mg/dL all other times of the day. Blood CAPILLARY BLOOD / Unknown 09/29/2024 3:45 AM EST 09/29/2024 3:46 AM EST Hayley Torres MD POINT OF CARE TEST O GILDA Performing Organization Address City/[facility] Co de Phone Number [facility] [place] [address] * (ABNORMAL) Hemoglobin A1c (09/28/2024 11:51 PM EST) Hemoglobin A1c 9.7(H) 4.3 - 5.6 % 09/29/2024 9:54 AM EST [facility] Comment: Per ADA guidelines, without clear [...] red blood cell turnover may not be security systems sales representative of glycemic control. Reference Interval: 4.3 - 5.6% 5.7 - 6.4%: Consistent with prediabetes >=6.5%: Consistent with diagnosis of diabetes mellitus Estimated Average Glucose 232 mg/dL 09/29/2024 9:54 AM EST [facility] Blood VENOUS BLOOD SPECIMEN / Unknown Venipuncture / Unknown 09/28/2024 11:51 PM EST 09/28/2024 11:56 PM EST Hayley Torres MD CHEMISTRY ORDERABLES Performing Organization Address City/[facility] Co de Phone Number [facility] [place] [address] * Magnesium (09/28/2024 11:51 PM EST) Magnesium 0.72 0.69 - 1.07 mMol/L 09/29/2024 12:27 AM EST [facility] Blood VENOUS BLOOD SPECIMEN / Unknown Venipuncture / Unknown 09/28/2024 11:51 PM EST 09/28/2024 11:57 PM EST Hayley Torres MD CHEMISTRY ORDERABLES [facility] [place] [address] * (ABNORMAL) Basic Metabolic Panel (09/28/2024 11:51 PM EST) Glucose 204(H) 65 - 199 mg/dL 09/29/2024 12:40 AM EST [facility] Comment:Glucose Concentratio n >=200 mg/dL plus symptoms is consistent with Diabetes Mellitus. Blood Urea Nitrogen 6(L) 10 - 20 mg/dL 09/29/2024 12:40 AM [facility] Creatinine 0.52(L) 0.80 - 1.50 mg/dL 09/29/2024 12:40 AM [facility] Sodium 137 135 - 145 mMol/L 09/29/2024 12:40 AM [facility] Potassium 3.2(L) 3.5 - 5.0 mMol/L 09/29/2024 12:40 AM [facility] Chloride 105 98 - 107 mMol/L 09/29/2024 12:40 AM [facility] Carbon Dioxide 21(L) 22 - 31 mMol/L 09/29/2024 12:40 AM [facility] Anion Gap 11 5 - 15 mMol/L 09/29/2024 12:40 AM [facility] Calcium 6.7(LLL) 8.5 - 10.5 mg/dL 09/29/2024 12:40 AM [facility] Est Glomerular Filtration Rate - Male 123 mL/min/1. 73 m?? 09/29/2024 12:40 AM [facility] Comment: This patient's estimated [...] / Unknown 09/28/2024 11:51 PM EST 09/28/2024 11:57 PM EST Hayley Torres MD CHEMISTRY ORDERABLES [facility] [place] [address] * (ABNORMAL) CBC (with Diff) (09/28/2024 11:51 PM [facility]) White Blood Cell 12.76(H) 4.00 - 9.50 x10(3)/mc L 09/29/2024 12:00 AM [facility] Red Blood Cell 2.90(L) 4.58 - 5.54 x10(6)/mc L 09/29/2024 12:00 AM [facility] Hemoglobin 8.5(L) 13.7 - 16.5 g/dL 09/29/2024 12:00 AM [facility] Hematocrit 24.7(L) 40.5 - 48.5 % 09/29/2024 12:00 AM [facility] Mean Cell Volume 85.2 82.9 - 93.1 fL 09/29/2024 12:00 AM [facility] Mean Cell Hemoglobin 29.3 27.5 - 32.1 pg 09/29/2024 12:00 AM [facility] Mean Cell Hemoglobin Concentration 34.4 32.0 - 35.7 g/dL 09/29/2024 12:00 AM [facility] Platelet 331 145 - 357 x10(3)/mc L 09/29/2024 12:00 AM [facility] Mean Platelet Volume 9.2 7.6 - 12.9 fL 09/29/2024 12:00 AM [facility] RDW Standard Deviation 40.4 36.0 - 45.0 fL 09/29/2024 12:00 AM [facility] RDW coefficient of variation 13.1 11.4 - 13.8 % 09/29/2024 12:00 AM [facility] NRBC% auto 0.0 % 09/29/2024 12:00 AM [facility] NRBC Absolute <0.01 <0.01 x10(3)/mc L 09/29/2024 12:00 AM [facility] Neutrophil % 86.7 % 09/29/2024 12:00 AM [facility] Neutrophil Absolute (ANC) - Automated 11.06(H) 1.70 - 6.10 x10(3)/mc L 09/29/2024 12:00 AM [facility] Lymph % 7.7 % 09/29/2024 12:00 AM [facility] Lymph Absolute 0.98 0.90 - 3.20 x10(3)/mc L 09/29/2024 12:00 AM [facility] Monocyte % 4.0 % 09/29/2024 12:00 AM [facility] Monocyte Absolute 0.51 0.30 - 0.90 x10(3)/mc L 09/29/2024 12:00 AM [facility] Eos % 0.0 % 09/29/2024 12:00 AM [facility] Eos Absolute <0.04 0.00 - 0.40 x10(3)/mc L 09/29/2024 12:00 AM [facility] Basophil % 0.2 % 09/29/2024 12:00 AM [facility] Baso Absolute <0.04 0.00 - 0.10 x10(3)/mc L 09/29/2024 12:00 AM [facility] Immature Gran % 1.4 % 12:00 AM [facility] Immature Gran Absolute 0.18(H) 0.00 - 0.04 x10(3)/mc L 09/29/2024 12:00 AM [facility] Blood VENOUS BLOOD SPECIMEN / Unknown Venipuncture / Unknown 09/28/2024 11:51 PM EST 09/28/2024 11:56 PM EST Hayley Torres MD HEMATOLOGY ORDERABLE S [facility] [place] [address] * (ABNORMAL) POC, GLUCOSE (09/28/2024 11:45 PM EST) Glucometer, POC 238(H) 65 - 199 mg/dL 09/28/2024 11:45 PM EST [facility] Comment:Supplemental ranges: <140 mg/dL before meals <180 mg/dL all other times of the day. Blood CAPILLARY BLOOD / Unknown 09/28/2024 11:45 PM EST 09/28/2024 11:45 PM EST Hayley Torres MD POINT OF CARE TEST O RDERAHERNANDEZ Performing Organization Address City/[facility]/ZIP Co de Phone Number [facility] [place] [address] * (ABNORMAL) POC, GLUCOSE (09/28/2024 10:00 PM EST) Glucometer, POC 287(H) 65 - 199 mg/dL 09/28/2024 10:00 PM EST [facility] Comment:Supplemental ranges: <140 mg/dL before meals <180 mg/dL all other times of the day. Blood CAPILLARY BLOOD / Unknown 09/28/2024 10:00 PM EST 09/28/2024 10:00 PM EST Hayley Torres MD POINT OF CARE TEST O GILDA Performing Organization Address City/[facility]/ZIP Co de Phone Number [facility] [place] [address] * (ABNORMAL) POC, GLUCOSE (09/28/2024 7:51 PM EST) Glucometer, POC 243(H) 65 - 199 mg/dL 09/28/2024 7:52 PM EST [facility] Comment:Supplemental ranges: <140 mg/dL before meals <180 mg/dL all other times of the day. Blood CAPILLARY BLOOD / Unknown 09/28/2024 7:51 PM EST 09/28/2024 7:52 PM EST Hayley Torres MD POINT OF CARE TEST O RDERABLES Performing Organization Address City/[facility]/ZIP Co de Phone Number [facility] [place] [address] * Blood culture (09/28/2024 5:49 PM EST) Blood Culture No growth at 120 hours 10/03/2024 7:01 PM EST [facility] Blood VENOUS BLOOD SPECIMEN / Unknown Venipuncture / Unknown 09/28/2024 5:49 PM EST 09/28/2024 5:53 PM EST Marko Dickson MD MICROBIOLOGY - BLOOD ORDERABLES Performing Organization Address [facility] Co de Phone Number [facility] [place] [address] * (ABNORMAL) POC, GLUCOSE (09/28/2024 4:42 PM EST) Glucometer, POC 203(H) 65 - 199 mg/dL 09/28/2024 4:42 PM EST [facility] Comment:Supplemental ranges: <140 mg/dL before meals <180 mg/dL all other times of the day. Blood CAPILLARY BLOOD / Unknown 09/28/2024 4:42 PM EST 09/28/2024 4:42 PM EST Hayley Torres MD POINT OF CARE TEST O RDERABLES Performing Organization Address [facility]/ZIP Co de Phone Number [facility] [place] [address] * (ABNORMAL) Blood Gas, Arterial POC (09/28/2024 3:16 PM EST) pH, Arterial 7.42 7.35 - 7.45 09/28/2024 3:17 PM EST [facility] PCO2, Arterial 39 35 - 45 mmHg 09/28/2024 3:17 PM EST [facility] PO2, Arterial 103 85 - 104 mmHg 09/28/2024 3:17 PM EST [facility] Bicarbonate, Arterial 24.8 20.0 - 26.0 mmol/L 09/28/2024 3:17 PM [facility] Base Excess, Arterial 0.2 -3.0 - 3.0 mmol/L 09/28/2024 3:17 PM [facility] Hemoglobin, Arterial 10.9(L) 13.7 - 16.5 g/dL 09/28/2024 3:17 PM [facility] Oxyhemoglobin, Arterial 97.1(H) 94.0 - 97.0 % 09/28/2024 3:17 PM [facility] Carboxyhemoglobin , Arterial 0.1 % 09/28/2024 3:17 PM [facility] Comment: Nonsmokers: 0.5-1.5% COHB ?? Smokers: Variable ??but usually less than 10% ?? Toxic: 20-30% COHB ?? Lethal: Greater than 60% COHB Methemoglobin, Arterial 0.2 <=1.5 % 09/28/2024 3:17 PM [facility] Sodium, Arterial 131(L) 135 - 145 mmol/L 09/28/2024 3:17 [address] [facility] Potassium, Arterial 3.8 3.5 - 5.0 mmol/L 09/28/2024 3:17 [address] [facility] Chloride, Arterial 99 98 - 107 mmol/L 09/28/2024 3:17 [address] [facility] Lactate, Arterial 1.1 0.5 - 2.2 mmol/L 09/28/2024 3:17 PM [facility] IONIZED CALCIUM, ARTERIAL 1.08(L) 1.15 - 1.33 mmol/L 09/28/2024 3:17 PM [facility] Glucose, Arterial 163 65 - 199 mg/dL 09/28/2024 3:17 PM [facility] Comment:Glucose Concentratio n >=200 mg/dL plus symptoms is consistent with Diabetes Mellitus. Blood ARTERIAL BLOOD / Unknown 09/28/2024 3:16 PM EST 09/28/2024 3:17 PM EST Hayley Torres MD POINT OF CARE TEST O RDERABLES [facility] [place] [address] * Surgical Pathology (09/28/2024 2:10 PM EST) Case Report Surgical Pathology Report ? Case: [id number] ? Authorizing Provider: ??Hayley Torres MD ? Collected: ? 09/28/2024 1410 ? Ordering Location: ? Main Operating Room [facility] ?? Received: ?09/28/2024 1644 ? [facility] ? Hospital ? Pathologist: ? Aziza Packer MD ? Specimens: ?? A) - Leg, Left, Left femoral proximal graft ? B) - Leg, Left, Left distal BK pop graft ? 10/02/2024 8:17 AM [facility] Final Diagnosis A. Graft, left leg, femoral proximal, excision: - Gross surgical pathology examination. B. Graft, left leg, distal BK pop, excision: - Gross surgical pathology examination. 10/02/2024 8:17 AM [facility] Clinical Information A. Leg, Left, Left femoral proximal graft Left femoral proximal graft B. Leg, Left, Left distal BK pop graft Left distal BK pop graft 10/02/2024 8:17 AM [facility] Gross Description A. Leg, Left, Left [...] sns 10/02/2024 8:17 AM [facility] Result Note Routine 10/02/2024 8:17 AM [facility] Order Booker STRUCTURE OF LEFT LOWER LIMB / Unknown 09/28/2024 2:10 PM EST 09/28/2024 4:44 PM EST Comment:Left femoral proxima l graft Biomedical device (physical object) STRUCTURE OF LEFT LOWER LIMB / Unknown 09/28/2024 2:17 PM EST 09/28/2024 4:44 PM EST Comment:Left distal BK pop g raft Hayley Torres MD PATHOLOGY/CYTOLOGY O RDTYESHA Performing Organization Address City/[facility]/ZIP Co de Phone Number [facility] [place] [address] * Potassium (09/28/2024 10:45 AM EST) Potassium 4.6 3.5 - 5.0 mMol/L 09/28/2024 12:26 PM EST [facility] Blood VENOUS BLOOD SPECIMEN / Unknown Venipuncture / Unknown 09/28/2024 10:45 AM EST 09/28/2024 10:53 AM EST Marko Dickson MD CHEMISTRY ORDERABLES Performing Organization Address [facility] Co de Phone Number [facility] [place] [address] * POC, GLUCOSE (09/28/2024 7:57 AM EST) Glucometer, POC 192 65 - 199 mg/dL 09/28/2024 7:57 AM EST [facility] Comment:Supplemental ranges: <140 mg/dL before meals <180 mg/dL all other times of the day. Blood CAPILLARY BLOOD / Unknown 09/28/2024 7:57 AM EST 09/28/2024 7:57 AM EST Marko Dickson MD POINT OF CARE TEST O RDERABLES Performing Organization Address [facility] Co de Phone Number [facility] [place] [address] * ELEN, legs, multiple levels (09/28/2024 7:44 AM EST) VB Text Report Department: Vascular Surgery Lab Patient: [id number] (GEOVANNA DIXON) CPT: 80408 Referring Physician: HERMILA SNIDER ?? Phone: Indications: [...] EST Narrative 09/28/2024 9:15 AM EST [address] [place] [address] ? Echocardiogram Report Name: GEOVANNA DIXON JR ?Study Date: 09/28/2024 06:56 AMBP: 132/75 mmHg ? Patient Location: ^IC08^A : 1975 ? Height: 179 cm ? Account: [id number] Age: 49 yrs ? Weight: 108 kg Gender: Male ?BSA: 2.3 m2 Ordering Physician: Marko Dickson MD Referring Physician: PATRIC GILES Performed By: Faiza Cole Reason For Study: Vascular graft infection, initial encounter; MRSA bacteremia Interpreting Fellow: Jame Lares. Exam Location: [facility]. Interpretation Summary -Limited study performed for [...] 05/29/2024, no significant changes. Procedure Limited - 33784. Doppler - 84217. Color Doppler - 73350. Suboptimal quality. This study is limited because [...] V1 VTI: 17.9 cm MV E max annabelle: 101.0 cm/sec MV A max annabelle: 102.6 cm/sec MV E/A: 0.98 Lat Peak E' Annabelle: 13.1 cm/sec E/e' (lat): 7.7 Med Peak E' Annabelle: 8.4 cm/sec E/e' (med): 12.0 E/e' Average: 9.9 I ?WMSI = 1.31 ? % Normal = 81 ?Segments ??Size X - Cannot ?? 1 - Normal ?? 2 - ? 3 - Akinetic 4 - ?1-2 ? small Interpret ? Hypokinetic ?Dyskinetic ?? 3-5 ? moderate 5 - ? 6-14 ?large Aneurysmal ?15-16 ?? diffuse Procedure Note David Lomeli MD - 09/28/2024 [address] [place] [address] Echocardiogram Report Name: GEOVANNA DIXON JR Study Date: 406:56 AMBP: 132/75 mmHg Patient Location:[facility]^A : 1975 Height: 179 cm Account: [id number] Age: 49 yrs Weight: 108 kg Gender: Male BSA: 2.3 m2 Ordering Physician: Marko Dickson MD Referring Physician: PATRIC GILES Performed By: Faiza Cole Reason For Study: Vascular graft infection, initial encounter; MRSAbacteremia Interpreting Fellow: Jame Lares. Exam Location: [facility]. Interpretation Summary -Limited study performed for [...] 05/29/2024, no significant changes. Procedure Limited - 44292. Doppler - 81083. Color Doppler - 32530. Suboptimalquality. This study is limited because of [...] V1 VTI: 17.9 cm MV E max annabelle: 101.0 cm/sec MV A max annabelle: 102.6 cm/sec MV E/A: 0.98 Lat Peak E' Annabelle: 13.1 cm/sec E/e' (lat): 7.7 Med Peak E' Annabelle: 8.4 cm/sec E/e' (med): 12.0 E/e' Average: 9.9 I WMSI = 1.31 % Normal = 81 SegmentsSize X - Cannot 1 - Normal 2 - 3 - Akinetic 4 - 1-2small Interpret Hypokinetic Dyskinetic 3-5moderate 5 - 6-14large Aneurysmal 15-16diffuse Marko Dickson MD ECHO ORDERABLES * Vancomycin, trough (09/28/2024 6:44 AM EST) [facility] Vancomycin, Trough 10.0 10.0 - 20.0 mg/L 09/28/2024 7:21 AM EST [facility] Comment: Varies according to infection source. Blood VENOUS BLOOD SPECIMEN / Unknown Venipuncture / Unknown 09/28/2024 6:44 AM EST 09/28/2024 6:49 AM EST Marko Dickson MD CHEMISTRY ORDERABLES [facility] [place] [address] * (ABNORMAL) Potassium (09/28/2024 4:55 AM EST) [facility] Potassium 2.9(LLL) 3.5 - 5.0 mMol/L 09/28/2024 5:31 AM EST [facility] Blood VENOUS BLOOD SPECIMEN / Unknown Venipuncture / Unknown 09/28/2024 4:55 AM EST 09/28/2024 5:01 AM EST Marko Dickson MD CHEMISTRY ORDERABLES Performing Organization Address City/[facility]/ZIP Co de Phone Number [facility] [place] [address] * (ABNORMAL) POC, GLUCOSE (09/28/2024 3:54 AM EST) Glucometer, POC 229(H) 65 - 199 mg/dL 09/28/2024 3:54 AM EST [facility] Comment:Supplemental ranges: <140 mg/dL before meals <180 mg/dL all other times of the day. Blood CAPILLARY BLOOD / Unknown 09/28/2024 3:54 AM EST 09/28/2024 3:54 AM EST Marko Dickson MD POINT OF CARE TEST O RDERABLES Performing Organization Address City/[facility]/ZIP Co de Phone Number [facility] [place] [address] * Magnesium (09/27/2024 11:58 PM EST) Magnesium 0.77 0.69 - 1.07 mMol/L 09/28/2024 12:38 AM EST [facility] Blood VENOUS BLOOD SPECIMEN / Unknown Venipuncture / Unknown 09/27/2024 11:58 PM EST 09/28/2024 12:10 AM EST Hayley Torres MD CHEMISTRY ORDERABLES [facility] [place] [address] * (ABNORMAL) Basic Metabolic Panel (09/27/2024 11:58 PM EST) Glucose 246(H) 65 - 199 mg/dL 09/28/2024 12:38 AM EST [facility] Comment:Glucose Concentratio n >=200 mg/dL plus symptoms is consistent with Diabetes Mellitus. Blood Urea Nitrogen 5(L) 10 - 20 mg/dL 09/28/2024 12:38 AM [facility] Creatinine 0.48(L) 0.80 - 1.50 mg/dL 09/28/2024 12:38 AM [facility] Sodium 131(L) 135 - 145 mMol/L 09/28/2024 12:38 AM [facility] Potassium 3.2(L) 3.5 - 5.0 mMol/L 09/28/2024 12:38 AM [facility] Chloride 95(L) 98 - 107 mMol/L 09/28/2024 12:38 AM [facility] Carbon Dioxide 23 22 - 31 mMol/L 09/28/2024 12:38 AM [facility] Anion Gap 13 5 - 15 mMol/L 09/28/2024 12:38 AM [facility] Calcium 8.1(L) 8.5 - 10.5 mg/dL 09/28/2024 12:38 AM [facility] Est Glomerular Filtration Rate - Male 126 mL/min/1. 73 m?? 09/28/2024 12:38 AM [facility] Comment: This patient's estimated [...] SPECIMEN / Unknown Venipuncture / Unknown 09/27/2024 11:58 PM EST 09/28/2024 12:10 AM EST Hayley Torres MD CHEMISTRY ORDERABLES [facility] [place] [address] * (ABNORMAL) CBC (with Diff) (09/27/2024 11:58 PM EST) White Blood Cell 17.15(H) 4.00 - 9.50 x10(3)/mc L 09/28/2024 12:14 AM [facility] Red Blood Cell 3.64(L) 4.58 - 5.54 x10(6)/mc L 09/28/2024 12:14 AM [facility] Hemoglobin 10.4(L) 13.7 - 16.5 g/dL 09/28/2024 12:14 AM [facility] Hematocrit 30.5(L) 40.5 - 48.5 % 09/28/2024 12:14 AM [facility] Mean Cell Volume 83.8 82.9 - 93.1 fL 09/28/2024 12:14 AM [facility] Mean Cell Hemoglobin 28.6 27.5 - 32.1 pg 09/28/2024 12:14 AM [facility] Mean Cell Hemoglobin Concentration 34.1 32.0 - 35.7 g/dL 09/28/2024 12:14 AM [facility] Platelet 316 145 - 357 x10(3)/mc L 09/28/2024 12:14 AM [facility] Mean Platelet Volume 9.4 7.6 - 12.9 fL 09/28/2024 12:14 AM [facility] RDW Standard Deviation 39.4 36.0 - 45.0 fL 09/28/2024 12:14 AM [facility] RDW coefficient of variation 12.8 11.4 - 13.8 % 09/28/2024 12:14 AM [facility] NRBC% auto 0.0 % 09/28/2024 12:14 AM [facility] NRBC Absolute <0.01 <0.01 x10(3)/mc L 09/28/2024 12:14 AM [facility] Neutrophil % 81.2 % 09/28/2024 12:14 AM [facility] Neutrophil Absolute (ANC) - Automated 13.93(H) 1.70 - 6.10 x10(3)/mc L 09/28/2024 12:14 AM [facility] Lymph % 10.5 % 09/28/2024 12:14 AM [facility] Lymph Absolute 1.80 0.90 - 3.20 x10(3)/mc L 09/28/2024 12:14 AM [facility] Monocyte % 5.7 % 09/28/2024 12:14 AM [facility] Monocyte Absolute 0.98(H) 0.30 - 0.90 x10(3)/mc L 09/28/2024 12:14 AM [facility] Eos % 0.7 % 09/28/2024 12:14 AM [facility] Eos Absolute 0.12 0.00 - 0.40 x10(3)/mc L 09/28/2024 12:14 AM [facility] Basophil % 0.5 % 09/28/2024 12:14 AM [facility] Baso Absolute 0.08 0.00 - 0.10 x10(3)/mc L 09/28/2024 12:14 AM [facility] Immature Gran % 1.4 % 12:14 AM [facility] Immature Gran Absolute 0.24(H) 0.00 - 0.04 x10(3)/mc L 09/28/2024 12:14 AM [facility] Blood VENOUS BLOOD SPECIMEN / Unknown Venipuncture / Unknown 09/27/2024 11:58 PM EST 09/28/2024 12:10 AM EST Hayley Torres MD HEMATOLOGY ORDERABLE S [facility] [place] [address] * (ABNORMAL) POC, GLUCOSE (09/27/2024 11:46 PM EST) Glucometer, POC 205(H) 65 - 199 mg/dL 09/27/2024 11:46 PM EST [facility] Comment:Supplemental ranges: <140 mg/dL before meals <180 mg/dL all other times of the day. Blood CAPILLARY BLOOD / Unknown 09/27/2024 11:46 PM EST 09/27/2024 11:46 PM EST Marko Dickson MD POINT OF CARE TEST O RDERABLES Performing Organization Address [facility] Co de Phone Number [facility] [place] [address] * (ABNORMAL) Blood culture (09/27/2024 9:33 PM EST) [facility] Blood Culture Methicillin Resistant Staphylococcus aureus(Critical) 10/02/2024 8:04 AM EST [facility] Comment:Susceptibilities pre viously reported. Gram Stain Aerobic Bottle: Gram positive cocci in clusters(Critical ) 10/02/2024 8:04 AM EST [facility] Blood VENOUS BLOOD SPECIMEN / Unknown Venipuncture / Unknown 09/27/2024 9:33 PM EST 09/27/2024 9:38 PM EST Marko Dickson MD MICROBIOLOGY - BLOOD ORDERABLES Performing Organization Address [facility]/ZIP Co de Phone Number [facility] [place] [address] * POC, GLUCOSE (09/27/2024 7:51 PM EST) [facility] Glucometer, POC 142 65 - 199 mg/dL 09/27/2024 7:51 PM EST [facility] Comment:Supplemental ranges: <140 mg/dL before meals <180 mg/dL all other times of the day. Blood CAPILLARY BLOOD / Unknown 09/27/2024 7:51 PM EST 09/27/2024 7:51 PM EST Marko Dickson MD POINT OF CARE TEST O RDERABLES [facility] [place] [address] * (ABNORMAL) Hemogram (09/27/2024 5:55 PM EST) White Blood Cell 19.38(H) 4.00 - 9.50 x10(3)/mc L 09/27/2024 6:16 PM EST [facility] Red Blood Cell 3.76(L) 4.58 - 5.54 x10(6)/mc L 09/27/2024 6:16 PM EST [facility] Hemoglobin 11.0(L) 13.7 - 16.5 g/dL 09/27/2024 6:16 PM EST [facility] Hematocrit 31.6(L) 40.5 - 48.5 % 09/27/2024 6:16 PM [facility] Mean Cell Volume 84.0 82.9 - 93.1 fL 09/27/2024 6:16 PM [facility] Mean Cell Hemoglobin 29.3 27.5 - 32.1 pg 09/27/2024 6:16 PM [facility] Mean Cell Hemoglobin Concentration 34.8 32.0 - 35.7 g/dL 09/27/2024 6:16 PM [facility] Platelet 322 145 - 357 x10(3)/mc L 09/27/2024 6:16 PM [facility] Mean Platelet Volume 9.4 7.6 - 12.9 fL 09/27/2024 6:16 PM [facility] RDW Standard Deviation 39.4 36.0 - 45.0 fL 09/27/2024 6:16 PM [facility] RDW coefficient of variation 13.0 11.4 - 13.8 % 09/27/2024 6:16 PM EST [facility] NRBC% auto 0.0 % 09/27/2024 6:16 PM EST [facility] NRBC Absolute <0.01 <0.01 x10(3)/mc L 09/27/2024 6:16 PM EST [facility] Blood VENOUS BLOOD SPECIMEN / Unknown Venipuncture / Unknown 09/27/2024 5:55 PM EST 09/27/2024 6:05 PM EST Marko Dickson MD HEMATOLOGY ORDERABLE S [facility] [place] [address] * POC, GLUCOSE (09/27/2024 5:48 PM EST) Glucometer, POC 171 65 - 199 mg/dL 09/27/2024 5:48 PM EST [facility] Comment:Supplemental ranges: <140 mg/dL before meals <180 mg/dL all other times of the day. Blood CAPILLARY BLOOD / Unknown 09/27/2024 5:48 PM EST 09/27/2024 5:48 PM EST Marko Dickson MD POINT OF CARE TEST O RDERABLES Performing Organization Address City/[facility]/ZIP Co de Phone Number [facility] [address] * Anaerobic Culture (09/27/2024 4:54 PM EST) Anaerobic Culture No anaerobic organisms isolated 10/01/2024 3:54 PM EST [facility] Tissue STRUCTURE OF LEFT THIGH / Unknown 09/27/2024 4:54 PM EST Comment:Infected explanted l eft leg bypass graft Hayley Torres MD MICROBIOLOGY - GENER AL ORDERABLES Performing Organization Address City/[facility]/ZIP Co de Phone Number [facility] [place] [address] * (ABNORMAL) Tissue Culture, Aerobic Only (09/27/2024 4:54 PM EST) Tissue Culture Rare Methicillin Resistant Staphylococcus aureus(A) VITEK 2 METHOD 10/01/2024 1:18 PM EST [facility] Gram Stain Few Neutrophils seen 10/01/2024 1:18 PM EST [facility] Gram Stain No microorganisms seen 10/01/2024 1:18 PM EST [facility] Tissue STRUCTURE OF LEFT THIGH [...] Torres MD MICROBIOLOGY - GENER AL ORDERABLES [facility] [place] [address] * POC, GLUCOSE (09/27/2024 3:23 PM EST) Glucometer, POC 178 65 - 199 mg/dL 09/27/2024 3:23 PM EST [facility] Comment:Supplemental ranges: <140 mg/dL before meals <180 mg/dL all other times of the day. Blood CAPILLARY BLOOD / Unknown 09/27/2024 3:23 PM EST 09/27/2024 3:23 PM EST Marko Dickson MD POINT OF CARE TEST Stephanie VO Performing Organization Address [facility] Co de Phone Number [facility] [place] [address] * POC, GLUCOSE (09/27/2024 11:29 AM EST) Glucometer, POC 181 65 - 199 mg/dL 09/27/2024 11:29 AM EST [facility] Comment:Supplemental ranges: <140 mg/dL before meals <180 mg/dL all other times of the day. Blood CAPILLARY BLOOD / Unknown 09/27/2024 11:29 AM EST 09/27/2024 11:30 AM EST Marko Dickson MD POINT OF CARE TEST Stephanie VO Performing Organization Address [facility] de Phone Number [facility] [place] [address] * CT Lower Extremity w Contrast Left (09/27/2024 9:16 AM EST) WORKSTATION ID [id number] [facility] Anatomical Region Laterality Modality Hip, Leg, Knee, [...] questions please contact the health director of health care marketing that requested your imaging first. ? Narrative [...] wedged between the vastus medialis and adductor Randolph muscle. This tracks into the popliteal fossa [...] have questions please contactthe health director of health care marketing that requested your imaging first. Rose Wright APRN IMG CT ORDERABL ES * POC, GLUCOSE (09/27/2024 7:51 AM EST) [facility] Glucometer, POC 194 65 - 199 mg/dL 09/27/2024 7:51 AM EST [facility] Comment:Supplemental ranges: <140 mg/dL before meals <180 mg/dL all other times of the day. Blood CAPILLARY BLOOD / Unknown 09/27/2024 7:51 AM EST 09/27/2024 7:51 AM EST Marko Dickson MD POINT OF CARE TEST O RDERABLES Performing Organization Address [facility] Co de Phone Number [facility] [place] [address] * (ABNORMAL) MRSA PCR Screen (09/27/2024 7:51 AM EST) Pathologist [facility] MRSA PCR Detected(A ) 09/27/2024 11:56 AM EST [facility] Swab BOTH ANTERIOR NARES / Unknown Non Blood Collection / Unknown 09/27/2024 7:51 AM EST 09/27/2024 8:05 AM EST Narrative [facility] - 09/27/2024 11:56 AM EST This test was performed using the Xpert MRSA NxG test kit and is run on the [employer] GeneXpert Dx System. This test is cleared by the U.S. Food and Drug Administration for clinical use and its performance characteristics have been verified by the [facility] at [facility]. Marko Dickson MD MOLECULAR ORDERABLES Performing Organization Address [facility] Co de Phone Number [facility] [place] [address] * Potassium (09/27/2024 7:51 AM EST) Pathologist [facility] Potassium 3.5 3.5 - 5.0 mMol/L 09/27/2024 9:09 AM EST [facility] Blood VENOUS BLOOD SPECIMEN / Unknown Venipuncture / Unknown 09/27/2024 7:51 AM EST 09/27/2024 8:05 AM EST Marko Dickson MD CHEMISTRY ORDERABLES Performing Organization Address [facility] Co de Phone Number [facility] [address] * (ABNORMAL) Potassium (09/27/2024 5:05 AM EST) Potassium 3.4(L) 3.5 - 5.0 mMol/L 09/27/2024 5:32 AM EST [facility] Blood VENOUS BLOOD SPECIMEN / Unknown Venipuncture / Unknown 09/27/2024 5:05 AM EST 09/27/2024 5:09 AM EST Marko Dickson MD CHEMISTRY ORDERABLES Performing Organization Address [facility] de Phone Number [facility] [place] [address] * POC, GLUCOSE (09/27/2024 3:52 AM EST) Glucometer, POC 199 65 - 199 mg/dL 09/27/2024 3:52 AM EST [facility] Comment:Supplemental ranges: <140 mg/dL before meals <180 mg/dL all other times of the day. Blood CAPILLARY BLOOD / Unknown 09/27/2024 3:52 AM EST 09/27/2024 3:52 AM EST Marko Dickson MD POINT OF CARE TEST O RDERABLES Performing Organization Address [facility] Co de Phone Number [facility] [place] [address] * (ABNORMAL) POC, GLUCOSE (09/27/2024 1:59 AM EST) Glucometer, POC 219(H) 65 - 199 mg/dL 09/27/2024 2:00 AM EST [facility] Comment:Supplemental ranges: <140 mg/dL before meals <180 mg/dL all other times of the day. Blood CAPILLARY BLOOD / Unknown 09/27/2024 1:59 AM EST 09/27/2024 2:00 AM EST Marko Dickson MD POINT OF CARE TEST O RDERABLES [facility] [place] [address] * (ABNORMAL) Magnesium (09/27/2024 12:01 AM EST) Pathologist [facility] Magnesium 0.68(L) 0.69 - 1.07 mMol/L 09/27/2024 12:35 AM [facility] Blood VENOUS BLOOD SPECIMEN / Unknown Venipuncture / Unknown 09/27/2024 12:01 AM EST 09/27/2024 12:05 AM EST Hayley Torres MD CHEMISTRY ORDERABLES Performing Organization Address City/[facility]/ZIP Co de Phone Number [facility] [place] [address] * (ABNORMAL) Basic Metabolic Panel (09/27/2024 12:01 AM EST) Glucose 261(H) 65 - 199 mg/dL 09/27/2024 12:35 AM [facility] Comment:Glucose Concentratio n >=200 mg/dL plus symptoms is consistent with Diabetes Mellitus. Blood Urea Nitrogen 7(L) 10 - 20 mg/dL 09/27/2024 12:35 AM [facility] Creatinine 0.45(L) 0.80 - 1.50 mg/dL 09/27/2024 12:35 AM [facility] Sodium 128(L) 135 - 145 mMol/L 09/27/2024 12:35 AM [facility] Potassium 3.3(L) 3.5 - 5.0 mMol/L 09/27/2024 12:35 AM [facility] Chloride 92(L) 98 - 107 mMol/L 09/27/2024 12:35 AM [facility] Carbon Dioxide 23 22 - 31 mMol/L 09/27/2024 12:35 AM [facility] Anion Gap 13 5 - 15 mMol/L 09/27/2024 12:35 AM EST [facility] Calcium 8.5 8.5 - 10.5 mg/dL 09/27/2024 12:35 AM [facility] Est Glomerular Filtration Rate - Male 128 mL/min/1. 73 m?? 09/27/2024 12:35 AM [facility] Comment: This patient's estimated [...] SPECIMEN / Unknown Venipuncture / Unknown 09/27/2024 12:01 AM EST 09/27/2024 12:05 AM EST Hayley Torres MD CHEMISTRY ORDERABLES [facility] [place] [address] * (ABNORMAL) CBC (with Diff) (09/27/2024 12:01 AM EST) White Blood Cell 23.20(H) 4.00 - 9.50 x10(3)/mc L 09/27/2024 12:10 AM EST [facility] Red Blood Cell 4.07(L) 4.58 - 5.54 x10(6)/mc L 09/27/2024 12:10 AM [facility] Hemoglobin 11.7(L) 13.7 - 16.5 g/dL 09/27/2024 12:10 AM [facility] Hematocrit 33.6(L) 40.5 - 48.5 % 09/27/2024 12:10 AM [facility] Mean Cell Volume 82.6(L) 82.9 - 93.1 fL 09/27/2024 12:10 AM [facility] Mean Cell Hemoglobin 28.7 27.5 - 32.1 pg 09/27/2024 12:10 AM [facility] Mean Cell Hemoglobin Concentration 34.8 32.0 - 35.7 g/dL 09/27/2024 12:10 AM [facility] Platelet 296 145 - 357 x10(3)/mc L 09/27/2024 12:10 AM [facility] Mean Platelet Volume 9.5 7.6 - 12.9 fL 09/27/2024 12:10 AM [facility] RDW Standard Deviation 37.9 36.0 - 45.0 fL 09/27/2024 12:10 AM [facility] RDW coefficient of variation 12.6 11.4 - 13.8 % 09/27/2024 12:10 AM [facility] NRBC% auto 0.0 % 09/27/2024 12:10 AM [facility] NRBC Absolute <0.01 <0.01 x10(3)/mc L 09/27/2024 12:10 AM [facility] Neutrophil % 83.7 % 09/27/2024 12:10 AM [facility] Neutrophil Absolute (ANC) - Automated 19.43(H) 1.70 - 6.10 x10(3)/mc L 09/27/2024 12:10 AM [facility] Lymph % 6.7 % 09/27/2024 12:10 AM [facility] Lymph Absolute 1.56 0.90 - 3.20 x10(3)/mc L 09/27/2024 12:10 AM [facility] Monocyte % 7.8 % 09/27/2024 12:10 AM [facility] Monocyte Absolute 1.80(H) 0.30 - 0.90 x10(3)/mc L 09/27/2024 12:10 AM [facility] Eos % 0.2 % 09/27/2024 12:10 AM EST [facility] Eos Absolute 0.04 0.00 - 0.40 x10(3)/mc L 09/27/2024 12:10 AM EST [facility] Basophil % 0.5 % 09/27/2024 12:10 AM [facility] Baso Absolute 0.12(H) 0.00 - 0.10 x10(3)/mc L 09/27/2024 12:10 AM EST [facility] Immature Gran % 1.1 % 12:10 AM [facility] Immature Gran Absolute 0.25(H) 0.00 - 0.04 x10(3)/mc L 09/27/2024 12:10 AM [facility] Blood VENOUS BLOOD SPECIMEN / Unknown Venipuncture / Unknown 09/27/2024 12:01 AM EST 09/27/2024 12:05 AM EST Hayley Torres MD HEMATOLOGY ORDERABLE S [facility] [place] [address] * (ABNORMAL) POC, GLUCOSE (09/26/2024 11:59 PM EST) Glucometer, POC 251(H) 65 - 199 mg/dL 09/26/2024 11:59 PM EST [facility] Comment:Supplemental ranges: <140 mg/dL before meals <180 mg/dL all other times of the day. Blood CAPILLARY BLOOD / Unknown 09/26/2024 11:59 PM EST 09/26/2024 11:59 PM EST Marko Dickson MD POINT OF CARE TEST O RDERABLES [facility] [place] [place] [address] * (ABNORMAL) POC, GLUCOSE (09/26/2024 7:34 PM EST) Glucometer, POC 204(H) 65 - 199 mg/dL 09/26/2024 7:34 PM EST [facility] Comment:Supplemental ranges: <140 mg/dL before meals <180 mg/dL all other times of the day. Blood CAPILLARY BLOOD / Unknown 09/26/2024 7:34 PM EST 09/26/2024 7:35 PM EST Marko Dickson MD POINT OF CARE TEST O RDERABLES Performing Organization Address [facility] Co de Phone Number [facility] [place] [place] [address] * (ABNORMAL) Blood culture (09/26/2024 6:45 PM EST) Pathologist [facility] Blood Culture Methicillin Resistant Staphylococcus aureus(Critical) 10/01/2024 6:58 AM EST [facility] Comment: isolated. Susceptibilities previously reported. Gram Stain Aerobic Bottle: Gram positive cocci in clusters(Critical ) 10/01/2024 6:58 AM EST [facility] Blood VENOUS BLOOD SPECIMEN / Unknown Venipuncture / Unknown 09/26/2024 6:45 PM EST 09/26/2024 6:48 PM EST Marko Dickson MD MICROBIOLOGY - BLOOD ORDERABLES Performing Organization Address [facility] Co de Phone Number [facility] [place] [address] * (ABNORMAL) Sonicated Tissue/Implant Culture (09/26/2024 5:16 PM EST) Sonicated Tissue/Implan t Culture Methicillin Resistant Staphylococcus aureus(A) VITEK 2 METHOD 09/30/2024 1:49 PM EST [facility] Comment: isolated from broth culture. Susceptibilities previously reported. Vascular Graft STRUCTURE OF LEFT LOWER LIMB / Unknown Non Blood Collection / Unknown 09/26/2024 5:16 PM EST 09/26/2024 5:45 PM EST Marko Dickson MD MICROBIOLOGY - GENER AL ORDERABLES Performing Organization Address City/[facility]/ZIP Co de Phone Number [facility] [place] [address] * Anaerobic Culture (09/26/2024 5:02 PM EST) Anaerobic Culture No anaerobic organisms isolated 09/30/2024 3:51 PM EST [facility] Abscess STRUCTURE OF LEFT KNEE REGION / Unknown Non Blood Collection / Unknown 09/26/2024 5:02 PM EST Comment:Left Below Knee popl iteal fluid Please perform Gram stain if not included in order Hayley Torres MD MICROBIOLOGY - GENER AL ORDERABLES Performing Organization Address [facility]/ZIP Co de Phone Number [facility] [place] [address] * (ABNORMAL) Abscess/Wound Aspirate Culture, Aerobic Only (09/26/2024 5:02 PM EST) Abscess/Wound Aspirate Culture Many Methicillin Resistant Staphylococcus aureus(A) VITEK 2 METHOD 09/30/2024 1:37 PM EST [facility] Gram Stain Many neutrophils(A) 09/30/2024 1:37 PM EST [facility] Gram Stain Many Gram positive cocci(A) 09/30/2024 1:37 PM EST [facility] Abscess STRUCTURE OF LEFT KNEE [...] Torres MD MICROBIOLOGY - GENER AL ORDERABLES Performing Organization Address [facility] Co de Phone Number [facility] [place] [address] * Anaerobic Culture (09/26/2024 4:50 PM EST) Anaerobic Culture No anaerobic organisms isolated 09/30/2024 3:51 PM EST [facility] Abscess LEFT INGUINAL REGION STRUCTURE / Unknown Non Blood Collection / Unknown 09/26/2024 4:50 PM EST Comment:Left Groin Fluid Hayley Torres MD MICROBIOLOGY - GENER AL ORDERABLES Performing Organization Address [facility] Co de Phone Number [facility] [place] [address] * (ABNORMAL) Abscess/Wound Aspirate Culture, Aerobic Only (09/26/2024 4:50 PM EST) Abscess/Wound Aspirate Culture Many Methicillin Resistant Staphylococcus aureus(A) VITEK 2 METHOD 09/30/2024 1:36 PM EST [facility] Gram Stain Many neutrophils(A) 09/30/2024 1:36 PM EST [facility] Gram Stain Many Gram positive cocci(A) 09/30/2024 1:36 PM EST [facility] Abscess LEFT INGUINAL REGION STRUCTURE / Unknown Non Blood Collection / Unknown 09/26/2024 4:50 PM EST Comment:Left Groin Fluid Narrative Organism Antibiotic Method Susceptibility Methicillin Resistant [...] Torres MD MICROBIOLOGY - GENER AL ORDERABLES [facility] [place] [address] * (ABNORMAL) Blood Gas, Arterial POC (09/26/2024 4:43 PM EST) pH, Arterial 7.38 7.35 - 7.45 09/27/2024 7:41 AM [facility] PCO2, Arterial 41 35 - 45 mmHg 09/27/2024 7:41 AM [facility] PO2, Arterial 96 85 - 104 mmHg 09/27/2024 7:41 AM [facility] Bicarbonate, Arterial 23.8 20.0 - 26.0 mmol/L 09/27/2024 7:41 AM [facility] Base Excess, Arterial -1.4 -3.0 - 3.0 mmol/L 09/27/2024 7:41 AM [facility] Hemoglobin, Arterial 12.6(L) 13.7 - 16.5 g/dL 09/27/2024 7:41 AM [facility] Oxyhemoglobin, Arterial 96.2 94.0 - 97.0 % 09/27/2024 7:41 AM [facility] Carboxyhemoglobin , Arterial 0.3 % 09/27/2024 7:41 AM [facility] Comment: Nonsmokers: 0.5-1.5% COHB ?? Smokers: Variable ??but usually less than 10% ?? Toxic: 20-30% COHB ?? Lethal: Greater than 60% COHB Methemoglobin, Arterial 0.3 <=1.5 % 09/27/2024 7:41 AM [facility] Sodium, Arterial 128(L) 135 - 145 mmol/L 09/27/2024 7:41 AM [facility] Potassium, Arterial 3.0(LLL) 3.5 - 5.0 mmol/L 09/27/2024 7:41 AM [facility] Chloride, Arterial 95(L) 98 - 107 mmol/L 09/27/2024 7:41 AM [facility] Lactate, Arterial 1.7 0.5 - 2.2 mmol/L 09/27/2024 7:41 AM [facility] IONIZED CALCIUM, ARTERIAL 1.09(L) 1.15 - 1.33 mmol/L 09/27/2024 7:41 AM [facility] Glucose, Arterial 205(H) 65 - 199 mg/dL 09/27/2024 7:41 AM [facility] Comment:Glucose Concentratio n >=200 mg/dL plus symptoms is consistent with Diabetes Mellitus. Blood ARTERIAL BLOOD / Unknown 09/26/2024 4:43 PM EST 09/27/2024 7:41 AM EST Marko Dickson MD POINT OF CARE TEST O RDERABLES [facility] [place] [place] [address] * (ABNORMAL) POC, GLUCOSE (09/26/2024 4:29 PM EST) [facility] Signature Glucometer, POC 213(H) 65 - 199 mg/dL 09/26/2024 4:30 PM [facility] Comment:Supplemental ranges: <140 mg/dL before meals <180 mg/dL all other times of the day. Blood CAPILLARY BLOOD / Unknown 09/26/2024 4:29 PM EST 09/26/2024 4:30 PM EST Marko Dickson MD POINT OF CARE TEST O RDERABLES [facility] [place] [address] * (ABNORMAL) Blood Gas, Venous POC (09/26/2024 3:28 PM EST) pH, Venous 7.43(H) 7.32 - 7.42 09/26/2024 3:30 PM EST [facility] PCO2, Venous 41 38 - 58 mmHg 09/26/2024 3:30 PM EST [facility] PO2, Venous 18 16 - 65 mmHg 09/26/2024 3:30 PM [facility] Bicarbonate, Venous 26.6 22 - 31 mmol/L 09/26/2024 3:30 PM [facility] Base Excess, Venous 2.3 1.9 - 4.5 mmol/L 09/26/2024 3:30 PM [facility] Hemoglobin, Venous 12.4(L) 13.7 - 16.5 g/dL 09/26/2024 3:30 PM [facility] Oxyhemoglobin, Venous 26.8 % 09/26/2024 3:30 PM [facility] Carboxyhemoglobin , Venous 1.0 % 09/26/2024 3:30 PM EST [facility] Comment: Nonsmokers: 0.5-1.5% COHB ?? Smokers: Variable ??but usually less than 10% ?? Toxic: 20-30% COHB ?? Lethal: Greater than 60% COHB Methemoglobin, Venous 0.4 <=1.5 % 09/26/2024 3:30 PM EST [facility] Sodium, Venous 127(L) 135 - 145 mmol/L 09/26/2024 3:30 PM EST [facility] Potassium, Venous 3.3(L) 3.5 - 5.0 mmol/L 09/26/2024 3:30 PM [facility] Chloride, Venous 91(L) 98 - 107 mmol/L 09/26/2024 3:30 PM [facility] Glucose, Venous 259(H) 65 - 199 mg/dL 09/26/2024 3:30 PM [facility] Comment:Glucose Concentratio n >=200 mg/dL plus symptoms is consistent with Diabetes Mellitus. Lactate, Venous 2.2 0.5 - 2.2 mmol/L 09/26/2024 3:30 PM [facility] Ionized Calcium, Venous 1.09(L) 1.15 - 1.33 mmol/L 09/26/2024 3:30 PM [facility] Blood VENOUS BLOOD SPECIMEN / Unknown 09/26/2024 3:28 PM EST 09/26/2024 3:30 PM EST Marko Dickson MD POINT OF CARE TEST O RDERABLES [facility] [place] [address] * (ABNORMAL) Scan, Peripheral Blood (09/26/2024 2:39 PM EST) RBC Morphology Abnormal 09/26/2024 3:21 PM [facility] Platelet Estimate Normal Normal 09/26/2024 3:21 PM [facility] Microcyte 1-5 /HPF 09/26/2024 3:21 PM [facility] Platelet Clumps Present(A) (none) 3:21 PM [facility] WBC MORPHOLOGY See Comment(A) (none) 09/26/2024 3:21 PM [facility] Comment:Dohle BodiesToxic Gr anulation Blood VENOUS BLOOD SPECIMEN / Unknown Venipuncture / Unknown 09/26/2024 2:39 PM EST 09/26/2024 2:50 PM EST Marko Dickson MD HEMATOLOGY ORDERABLE S [facility] [place] [address] * ABORH RECHECK (PATIENT HISTORY FOUND) (09/26/2024 2:39 PM EST) Pathologist [facility] ABORH Recheck Progress Complete 09/26/2024 5:01 PM EST [facility] Blood VENOUS BLOOD SPECIMEN / Unknown Venipuncture / Unknown 09/26/2024 2:39 PM EST 09/26/2024 2:56 PM EST Marko Dickson MD BLOOD BANK LAB ORDER RANDELL [facility] [place] [address] * (ABNORMAL) Hepatic Function Panel (09/26/2024 2:39 PM EST) [facility] Albumin 3.1(L) 3.2 - 5.2 g/dL 09/26/2024 4:23 PM [facility] Aspartate Aminotransferase 16 <=39 unit/L 09/26/2024 4:23 PM [facility] Alanine Aminotransferase 14 0 - 55 unit/L 09/26/2024 4:23 PM [facility] Alkaline Phosphatase 160(H) 40 - 130 unit/L 09/26/2024 4:23 PM [facility] Bilirubin, Total 0.4 <=1.3 mg/dL 09/26/2024 4:23 PM [facility] Bilirubin, Direct 0.2 0.0 - 0.3 mg/dL 09/26/2024 4:23 PM [facility] Protein, Total 7.0 6.1 - 8.0 g/dL 09/26/2024 4:23 PM EST [facility] Blood VENOUS BLOOD SPECIMEN / Unknown Venipuncture / Unknown 09/26/2024 2:39 PM EST 09/26/2024 2:50 PM EST Marko Dickson MD CHEMISTRY ORDERABLES [facility] [place] [address] * (ABNORMAL) Basic Metabolic Panel (09/26/2024 2:39 PM EST) Glucose 254(H) 65 - 199 mg/dL 09/26/2024 4:32 PM EST [facility] Comment:Glucose Concentratio n >=200 mg/dL plus symptoms is consistent with Diabetes Mellitus. Blood Urea Nitrogen 9(L) 10 - 20 mg/dL 09/26/2024 4:32 PM EST [facility] Creatinine 0.55(L) 0.80 - 1.50 mg/dL 09/26/2024 4:32 PM [facility] Sodium 127(L) 135 - 145 mMol/L 09/26/2024 4:32 PM [facility] Potassium 3.4(L) 3.5 - 5.0 mMol/L 09/26/2024 4:32 PM [facility] Chloride 89(L) 98 - 107 mMol/L 09/26/2024 4:32 PM [facility] Carbon Dioxide 25 22 - 31 mMol/L 09/26/2024 4:32 PM [facility] Anion Gap 13 5 - 15 mMol/L 09/26/2024 4:32 PM EST [facility] Calcium 8.9 8.5 - 10.5 mg/dL 09/26/2024 4:32 PM EST [facility] Est Glomerular Filtration Rate - Male 121 mL/min/1. 73 m?? 09/26/2024 4:32 PM EST [facility] Comment: This patient's estimated [...] 2:39 PM EST 09/26/2024 2:50 PM EST Hayley Torres MD CHEMISTRY ORDERABLES [facility] [place] [address] * (ABNORMAL) CBC (with Diff) (09/26/2024 2:39 PM EST) White Blood Cell 22.76(H) 4.00 - 9.50 x10(3)/mc L 09/26/2024 3:21 PM [facility] Red Blood Cell 4.20(L) 4.58 - 5.54 x10(6)/mc L 09/26/2024 3:21 PM EST [facility] Hemoglobin 12.3(L) 13.7 - 16.5 g/dL 09/26/2024 3:21 PM [facility] Hematocrit 35.0(L) 40.5 - 48.5 % 09/26/2024 3:21 PM [facility] Mean Cell Volume 83.3 82.9 - 93.1 fL 09/26/2024 3:21 PM [facility] Mean Cell Hemoglobin 29.3 27.5 - 32.1 pg 09/26/2024 3:21 PM [facility] Mean Cell Hemoglobin Concentration 35.1 32.0 - 35.7 g/dL 09/26/2024 3:21 PM [facility] Platelet 277 145 - 357 x10(3)/mc L 09/26/2024 3:21 PM [facility] Mean Platelet Volume 9.6 7.6 - 12.9 fL 09/26/2024 3:21 PM [facility] RDW Standard Deviation 37.9 36.0 - 45.0 fL 09/26/2024 3:21 PM [facility] RDW coefficient of variation 12.6 11.4 - 13.8 % 09/26/2024 3:21 PM [facility] NRBC% auto 0.0 % 09/26/2024 3:21 PM [facility] NRBC Absolute <0.01 <0.01 x10(3)/mc L 09/26/2024 3:21 PM [facility] Neutrophil % 84.0 % 09/26/2024 3:21 PM [facility] Comment:This is an appended report. These results have been appended to a previously preliminary verified report. Neutrophil Absolute (ANC) - Automated 19.10(H) 1.70 - 6.10 x10(3)/mc L 09/26/2024 3:21 PM [facility] Comment:This is an appended report. These results have been appended to a previously preliminary verified report. Lymph % 6.2 % 09/26/2024 3:21 PM [facility] Comment:This is an appended report. These results have been appended to a previously preliminary verified report. Lymph Absolute 1.41 0.90 - 3.20 x10(3)/mc L 09/26/2024 3:21 PM [facility] Comment:This is an appended report. These results have been appended to a previously preliminary verified report. Monocyte % 8.1 % 09/26/2024 3:21 PM [facility] Comment:This is an appended report. These results have been appended to a previously preliminary verified report. Monocyte Absolute 1.85(H) 0.30 - 0.90 x10(3)/mc L 09/26/2024 3:21 PM [facility] Comment:This is an appended report. These results have been appended to a previously preliminary verified report. Eos % 0.0 % 09/26/2024 3:21 PM [facility] Comment:This is an appended report. These results have been appended to a previously preliminary verified report. Eos Absolute <0.04 0.00 - 0.40 x10(3)/mc L 09/26/2024 3:21 PM EST [facility] Comment:This is an appended report. These results have been appended to a previously preliminary verified report. Basophil % 0.5 % 09/26/2024 3:21 PM EST [facility] Comment:This is an appended report. These results have been appended to a previously preliminary verified report. Baso Absolute 0.11(H) 0.00 - 0.10 x10(3)/mc L 09/26/2024 3:21 PM EST [facility] Comment:This is an appended report. These results have been appended to a previously preliminary verified report. Immature Gran % 1.2 % 3:21 PM EST [facility] Comment:This is an appended report. These results have been appended to a previously preliminary verified report. Immature Gran Absolute 0.28(H) 0.00 - 0.04 x10(3)/mc L 09/26/2024 3:21 PM EST [facility] Comment:This is an appended report. These results have been appended to a previously preliminary verified report. Blood VENOUS BLOOD SPECIMEN / Unknown Venipuncture / Unknown 09/26/2024 2:39 PM EST 09/26/2024 2:50 PM EST Hayley Torres MD HEMATOLOGY ORDERABLE S [facility] [place] [address] * Phosphorus (09/26/2024 2:39 PM EST) Phosphorus 3.2 2.5 - 4.5 mg/dL 09/26/2024 4:05 PM EST [facility] Blood VENOUS BLOOD SPECIMEN / Unknown Venipuncture / Unknown 09/26/2024 2:39 PM EST 09/26/2024 2:50 PM EST Marko Dickson MD CHEMISTRY ORDERABLES [facility] [place] [address] * (ABNORMAL) Magnesium (09/26/2024 2:39 PM EST) Magnesium 0.65(L) 0.69 - 1.07 mMol/L 09/26/2024 4:05 PM EST [facility] Blood VENOUS BLOOD SPECIMEN / Unknown Venipuncture / Unknown 09/26/2024 2:39 PM EST 09/26/2024 2:50 PM EST Marko Dickson MD CHEMISTRY ORDERABLES Performing Organization Address City/[facility]/ZIP Co de Phone Number [facility] [place] [address] * Type and screen ([facility]/CGP/BABITA) (09/26/2024 2:39 PM EST) Pathologist [facility] ABORH Type A POSITIVE 09/26/2024 3:45 PM EST [facility] PATIENT HISTORY Found 09/26/2024 3:45 PM EST [facility] Expires at [id number] on: 09/29/2024 09/26/2024 3:45 PM EST [facility] ANTIBODY SCREEN AUTOMATED Negative 09/26/2024 3:45 PM EST [facility] T&S only valid at [facility] 09/26/2024 3:45 PM EST [facility] Blood VENOUS BLOOD SPECIMEN / Unknown Venipuncture / Unknown 09/26/2024 2:39 PM EST 09/26/2024 2:56 PM EST Narrative [facility] - 09/26/2024 3:45 PM EST This Type and Screen result is only valid at the [facility] Marko Dickson MD BLOOD BANK LAB ORDER [facility]AN[facility] [place] [address] * (ABNORMAL) Fibrinogen (09/26/2024 2:39 PM EST) Fibrinogen >1,000(H) 200 - 393 mg/dL 09/26/2024 3:09 PM EST [facility] Comment: A fibrinogen level >100 mg/dL is adequate for hemostasis in most patients without underlying bleeding disorders. Blood VENOUS BLOOD SPECIMEN / Unknown Venipuncture / Unknown 09/26/2024 2:39 PM EST 09/26/2024 2:50 PM EST Marko Dickson MD HEMATOLOGY ORDERABLE S Performing Organization Address [facility] Co de Phone Number [facility] [place] [address] * APTT (09/26/2024 2:39 PM EST) Partial Thromboplastin Time 36 25 - 37 sec 09/26/2024 3:09 PM EST [facility] Comment: The PTT is NOT appropriate for heparin monitoring. Use the Anti-Xa level for heparin monitoring (HEP UFH) or LMWH monitoring (HEP LMW). A PTT less than 37 seconds generally indicates adequate hemostasis. Blood VENOUS BLOOD SPECIMEN / Unknown Venipuncture / Unknown 09/26/2024 2:39 PM EST 09/26/2024 2:50 PM EST Marko Dickson MD HEMATOLOGY ORDERABLE S Performing Organization Address City/[facility] Co de Phone Number [facility] [place] [address] * (ABNORMAL) Prothrombin Time (09/26/2024 2:39 PM EST) Prothrombin Time 21.6(H) 9.4 - 12.5 sec 09/26/2024 3:09 PM EST [facility] International Normalization Ratio 1.9 <=4.9 09/26/2024 3:09 PM EST [facility] Comment: An INR < 2.0 [...] 2:39 PM EST 09/26/2024 2:50 PM EST Marko Dickson MD HEMATOLOGY ORDERABLE S Performing Organization Address City/[facility]/ZIP Co de Phone Number [facility] [place] [address] * (ABNORMAL) POC, GLUCOSE (09/26/2024 2:36 PM EST) Glucometer, POC 268(H) 65 - 199 mg/dL 09/26/2024 2:36 PM EST [facility] Comment:Supplemental ranges: <140 mg/dL before meals <180 mg/dL all other times of the day. Blood CAPILLARY BLOOD / Unknown 09/26/2024 2:36 PM EST 09/26/2024 2:36 PM EST Marko Dickson MD POINT OF CARE TEST O RDERABLES Performing Organization Address [facility] Co de Phone Number [facility] [place] [address] * (ABNORMAL) Blood culture (09/26/2024 2:22 PM EST) Blood Culture Methicillin Resistant Staphylococcus aureus(Critical) VITEK 2 METHOD 10/07/2024 7:40 AM EST [facility] Comment: detected by PCR Isolate saved. If future testing is required, contact the Microbiology Senior Systems Developer. Gram Stain Aerobic Bottle: Gram positive cocci in clusters(Critical ) 10/07/2024 7:40 AM EST [facility] Blood VENOUS BLOOD SPECIMEN / Unknown 09/26/2024 2:22 PM EST 09/26/2024 4:32 PM EST Narrative Organism Antibiotic Method Susceptibility Methicillin Resistant Staphylococcus aureus Daptomycin MINIMUM INHIBITORY CONCENTRATION 1 ug/ml: Susceptible Methicillin Resistant Staphylococcus aureus Clindamycin [...] <=10.0 ug/ml: Susceptible Methicillin Resistant Staphylococcus aureus Vancomycin VITEK 2 METHOD 1.0 ug/ml: Susceptible Marko Dickson MD MICROBIOLOGY - BLOOD ORDERABLES [facility] [place] [address] * Request For 2nd Read CT Lower Extremity (09/26/2024 1:50 PM EST) Total Immersion WORKSTATION ID [id number] [facility] Anatomical Region Laterality Modality Hip, Leg, Knee, [...] questions please contact the health director of health care marketing that requested your imaging first. ? Narrative 09/26/2024 3:01 PM EST EXAMINATION: REQUEST FOR 2ND READ CT LOWER EXTREMITY CLINICAL HISTORY: Pt s/p LLE femoral-below knee popliteal bypass with PTFE graft, c/f infection surrounding graft, en route to [facility] [place] for possible vascular surgery intervention; Sending Institution [facility]; Date of exam [id number]; I [...] on series 3, image 8 and 641, 202, 052, 972. No other rim-enhancing fluid collection is seen. [...] There are bilateral vasectomy clips. Procedure Note Lisette Bruno MD - 09/26/2024 EXAMINATION: REQUEST FOR 2ND READ CT LOWER EXTREMITY CLINICAL HISTORY: Pt s/p LLE femoral-below knee popliteal bypass withPTFE graft, c/f infection surrounding graft, en route to [facility] [place] for possiblevascular surgery intervention; Sending Institution [facility]; Date of exam [id number]; Ibelieve [...] on series 3, image 8 and 641, [phone]. No other rim-enhancing fluid collection is seen. [...] have questions please contactthe health director of health care marketing that requested your imaging first. Marko Dickson MD IMG OUTSIDE INTERPRE TATION ORDERABLES documented in this encounter Visit Diagnoses Diagnosis Vascular graft infection, initial encounter- Primary Vascular graft infection, initial encounter PAD (peripheral artery disease) Peripheral vascular disease, unspecified Critical limb ischemia of left lower extremity MRSA bacteremia Bacteremia QT prolongation Nonspecific abnormal electrocardiogram (ECG) (EKG) documented in this encounter Admitting Diagnoses Diagnosis Vascular graft infection, initial encounter documented in this encounter Administered Medications Inactive Administered Medications - up to 3 most recent administrations Medication Order MAR Action Action Date Dose Rate Site acetaminophen (Tylenol) tablet 975 mg 975 mg, Oral, EVERY 6 HOURS SCHEDULED, First dose on Wed09/26/24 at 1500, Until Discontinued, Maximum dose of acetaminophen is 4,000 mg from all sources in 24 hours. When ordered for pain, acetaminophen should be given even when other ordered pain medications are indicated., Routine Given 10/10/2024 11:07 AM EST 975 mg Given 10/10/2024 6:04 AM EST 975 mg Given 10/10/2024 12:32 AM EST 975 mg aspirin EC tablet 81 mg 81 mg, Oral, DAILY, First dose on Wed09/26/24 at 1600, Until Discontinued, Routine Given 10/10/2024 8:31 AM EST 81 mg Given 10/09/2024 9:02 AM EST 81 mg Given 10/08/2024 8:56 AM EST 81 mg atorvastatin (Lipitor) tablet 80 mg 80 mg, Oral, EVERY EVENING, First dose on Wed09/26/24 at 1700, Until Discontinued, Routine Given 10/09/2024 5:0 8 PM EST 80 mg Given 10/08/2024 5:46 PM EST 80 mg Given 10/07/2024 4:34 PM EST 80 mg bisacodyL (Dulcolax) suppository 10 mg 10 mg, Rectal, DAILY PRN, Starting on Wed10/01/24 at 0848, Until Wed10/10/24 at 1912, Constipation, Give if no BM within last 24 hr and rectal fullness is reported or assessed. Give concomitantly with any scheduled bowel medications ordered. , Routine bisacodyL EC (Dulcolax) tablet 10 mg 10 mg, Oral, 2 TIMES DAILY PRN, Starting on Wed10/01/24 at 0848, Until Wed10/10/24 at 1912, Constipation, Give if no BM after 24 hr after prior interventions. BM expected in 6-8 hours. If BM desired sooner, use next ordered agent. Give concomitantly with any scheduled bowel medications ordered., Routine Given 10/07/2024 6:59 PM EST 10 mg Given 10/03/2024 1:00 PM EST 10 mg calcium gluconate 1g in sodium chloride 0.9% 50mL 1 g, Intravenous, EVERY HOUR, 2 doses, First dose on Wed09/29/24 at 0115, Last dose on Wed09/29/24 at 0200, Administer over 60 Minutes, Warning Vesicant/Irritant Medication New Bag 09/29/2024 1:53 AM EST 1 g 50 mL/hr New Bag 09/29/2024 12:51 AM EST 1 g 50 mL/hr DAPTOmycin (Cubicin) 700 mg in sodium chloride 0.9% 64 mL 700 mg (rounded from 692 mg = 8 mg/kg/dose ? 86.5 kg Adjusted weight), Intravenous, at 128 mL/hr, EVERY 24 HOURS, First dose (after last modification) on Wed10/07/24 at 2215, Until Discontinued, Routine, Indication for (Active or Suspected): Bacteremia/Sepsis, Restricted Antibiotic: Please indicate the most appropriate choice: ID Approval by Amaya Purvisgren New Bag 10/09/2024 9:16 PM EST 700 mg 128 mL/hr New Bag 10/08/2024 9:57 PM EST 700 mg 128 mL/hr New Bag 10/07/2024 10:21 PM EST 700 mg 128 mL/hr DAPTOmycin (Cubicin) 700 mg in sodium chloride 0.9% 64 mL 700 mg (rounded from 692 mg = 8 mg/kg/dose ? 86.5 kg Adjusted weight), Intravenous, at 128 mL/hr, EVERY 24 HOURS, First dose (after last modification) on Wed10/10/24 at 1500, Until Discontinued, Routine, Indication for (Active or Suspected): Bacteremia/Sepsis, Restricted Antibiotic: Please indicate the most appropriate choice: ID Approval by Amaya Purvisgren New Bag 10/10/2024 2:46 PM EST 700 mg 128 mL/hr dextrose 50% intravenous solution 25 g 25 g, Intravenous, EVERY 15 MIN PRN, Starting on Wed09/27/24 at 1700, Until Wed10/10/24 at 1912, Low blood sugar, ??Oral treatment preferred For Blood Glucose 50 to 70 mg/dL: ?? -??IF ABLE TO DRINK, give 120 mL juice or regular (not diet) soda - IF NPO, give 15 gram glucose 40% oral gel massaged into buccal mucosa - IF UNCONSCIOUS OR UNCOOPERATIVE, give 25 gram dextrose IV - IF NO IV ACCESS, give 1 mg glucagon IM. For Blood Glucose LESS than 50 mg/dL: ?? -??IF ABLE TO DRINK, give 240 mL juice or regular (not diet) soda - IF NPO, give 30 gram glucose 40% oral gel massaged into buccal mucosa - IF UNCONSCIOUS OR UNCOOPERATIVE, give 25 gram dextrose IV - IF NO IV ACCESS, 1 mg glucagon IM. Recheck BG in 15 minutes. May repeat juice/soda, gel, dextrose or glucagon once per episode. Notify provider if hypoglycemia does not resolve after two treatments. Providers should consider the following: administering longer-acting treatments for the duration of active insulin or hypoglycemia agent for persistent hypoglycemia and re-evaluating active insulin orders before administering the next dose. Warning Vesicant/Irritant Medication , Routine glucagon (Glucagen) (1 mg/mL) injection solution 1 mg 1 mg, Intramuscular, EVERY 15 MIN PRN, Starting on Wed09/27/24 at 1700, Until Wed10/10/24 at 1911, Low blood sugar, ??Oral treatment preferred For Blood Glucose 50 to 70 mg/dL: ?? -??IF ABLE TO DRINK, give 120 mL juice or regular (not diet) soda - IF NPO, give 15 gram glucose 40% oral gel massaged into buccal mucosa - IF UNCONSCIOUS OR UNCOOPERATIVE, give 25 gram dextrose IV - IF NO IV ACCESS, give 1 mg glucagon IM. For Blood Glucose LESS than 50 mg/dL: ?? -??IF ABLE TO DRINK, give 240 mL juice or regular (not diet) soda - IF NPO, give 30 gram glucose 40% oral gel massaged into buccal mucosa - IF UNCONSCIOUS OR UNCOOPERATIVE, give 25 gram dextrose IV - IF NO IV ACCESS, 1 mg glucagon IM. Recheck BG in 15 minutes. May repeat juice/soda, gel, dextrose or glucagon once per episode. Notify provider if hypoglycemia does not resolve after two treatments. Providers should consider the following: administering longer-acting treatments for the duration of active insulin or hypoglycemia agent for persistent hypoglycemia and re-evaluating active insulin orders before administering the next dose., Routine glucose (Glutose) 40% oral geL 15-30 g of glucose, Buccal, EVERY 15 MIN PRN, Starting on Wed09/27/24 at 1700, Until Wed10/10/24 at 1911, Low blood sugar, ??Oral treatment preferred For Blood Glucose 50 to 70 mg/dL: ?? -??IF ABLE TO DRINK, give 120 mL juice or regular (not diet) soda - IF NPO, give 15 gram glucose 40% oral gel massaged into buccal mucosa - IF UNCONSCIOUS OR UNCOOPERATIVE, give 25 gram dextrose IV - IF NO IV ACCESS, give 1 mg glucagon IM. For Blood Glucose LESS than 50 mg/dL: ?? -??IF ABLE TO DRINK, give 240 mL juice or regular (not diet) soda - IF NPO, give 30 gram glucose 40% oral gel massaged into buccal mucosa - IF UNCONSCIOUS OR UNCOOPERATIVE, give 25 gram dextrose IV - IF NO IV ACCESS, 1 mg glucagon IM. Recheck BG in [...] EVERY 8 HOURS SCHEDULED, First dose on Wed09/26/24 at 2200, Until Discontinued, Routine Given 10/10/2024 2:46 PM EST 5,000 Units Given 10/10/2024 6:05 AM EST 5,000 Units Given 10/09/2024 9:16 PM EST 5,000 Units hydrALAZINE (Apresoline) (20 mg/mL) injection 5 mg 5 mg, Intravenous, EVERY 6 HOURS PRN, Starting on Wed10/01/24 at 0219, Until Wed10/10/24 at 1912, High Blood Pressure, Please give for SBP >150 and/ or if new symptoms arise Given 10/06/2024 4:07 AM EST 5 mg Given 10/05/2024 12:05 PM EST 5 mg Given 10/04/2024 6:07 AM EST 5 mg Le ft Arm HYDROmorphone (Dilaudid) (0.5 mg/0.5 mL) injection syringe 0.4 mg 0.4 mg, Intravenous, ONCE, 1 dose, On Wed09/27/24 at 0700, Routine Given 09/27/2024 6:35 AM EST 0.4 mg HYDROmorphone (Dilaudid) (1 mg/mL) injection syringe 1 mg 1 mg, Intravenous, EVERY 4 HOURS PRN, Starting on Wed09/27/24 at 0932, Until Wed10/04/24 at 1652, Pain, Severe Pain (7-10), If multiple routes of administration ordered, oral route first line. If unable to take oral medication(s), may give subcutaneously or intravenously, if ordered., Routine Given 09/27/2024 10:02 AM EST 1 mg insulin glargine-ygfn (Semglee) (100 unit/mL) subcutaneous injection vial 25 Units 25 Units, Subcutaneous, NIGHTLY, First dose on Wed09/27/24 at 0315, Until Discontinued, Routine Given 09/27/2024 3:59 AM EST 25 Units insulin glargine-ygfn (Semglee) (100 unit/mL) subcutaneous injection vial 25 Units 25 Units, Subcutaneous, 2 TIMES DAILY, First dose (after last modification) on Angelita 09/28/24 at 0900, Until Discontinued, Routine Given 10/10/2024 8:34 AM EST 25 Units Given 10/09/2024 8:25 PM EST 25 Units Given 10/09/2024 9:04 AM EST 25 Units insulin glargine-ygfn (Semglee) (100 unit/mL) subcutaneous injection vial 35 Units 35 Units, Subcutaneous, NIGHTLY, First dose (after last modification) on Wed09/27/24 at 2100, Until Discontinued, Routine Given 09/27/2024 9:09 PM EST 35 Unit s insulin lispro (HumaLOG;Admelog) (100 unit/mL) subcutaneous injection vial 0-11 Units 0-11 Units, Subcutaneous, 3 TIMES DAILY WITH MEALS, First dose on Wed09/27/24 at 1730, Until Discontinued, ME[employer] Give 1 unit for every 5 grams carbohydrate. Hold if not eating or if BG less than 70 mg/dL. , Routine Given 10/10/2024 1:33 PM EST 11 Units Given 10/10/2024 8:34 AM EST 11 Units Given 10/09/2024 6:10 PM EST 11 Units insulin lispro (HumaLOG;Admelog) (100 unit/mL) subcutaneous injection vial 1-6 Units 1-6 Units, Subcutaneous, EVERY 4 HOURS SCHEDULED, First dose on Wed09/27/24 at 1730, Until Discontinued, CORRECTION BOLUS [1-6 Units] Moderate [...] 240 mg/dL in 2 hours., Routine Given 10/10/2024 4:32 PM EST 2 Units Given 10/10/2024 11:12 AM EST 2 Units Given 10/10/2024 7:47 AM EST 1 Units insulin lispro (HumaLOG;Admelog) (100 unit/mL) subcutaneous injection vial 2-12 Units 2-12 Units, Subcutaneous, EVERY 4 HOURS SCHEDULED, First dose on Wed09/26/24 at 1600, Until Discontinued, CORRECTION BOLUS [2-12 Units] Resistant [...] 240 mg/dL in 2 hours, Routine Given 09/27/2024 3:23 PM ES T 4 Units Given 09/27/2024 11:30 AM EST 6 Units L eft Arm Given 09/27/2024 7:52 AM EST 6 Units iohexoL (Omnipaque) (350 mg/mL) solution 0-200 mL 0-200 mL, Intravenous, ONCE PRN, 1 dose, Starting on Wed09/27/24 at 0909, Until Wed09/27/24 at 0909, Per Protocol, Warning Vesicant/Irritant Medication , Radiology Contrast, Routine Given 09/27/2024 9:09 AM EST 110 mLs labetaloL (Normodyne) (5 mg/mL) injection solution 20 mg 20 mg, Intravenous, ONCE, 1 dose, On Wed09/29/24 at 0400, Routine Given 09/29/2024 3:40 AM EST 20 mg lactated ringers infusion 100 mL/hr, Intravenous, CONTINUOUS, Starting on Wed09/26/24 at 1530, Until Wed09/26/24 at 2156 New Bag 09/26/2024 7:41 PM EST 100 mL/hr 100 mL/hr New Bag 09/26/2024 3:20 PM EST 100 mL/hr 100 mL/hr lactated ringers infusion 100 mL/hr, Intravenous, CONTINUOUS, Starting on Wed09/27/24 at 0815, Until Wed09/27/24 at 1814 Restarted 09/27/2024 4:13 PM EST New Bag 09/27/2024 3:44 PM EST 100 mL/hr New Bag 09/27/2024 7:54 AM EST 100 mL/hr 100 mL/hr lactulose (Chronulac) (0.67 gram/mL) oral liquid 20 g 20 g, Oral, DAILY PRN, Starting on 10/01/24 at 0848, Until Wed10/10/24 at 1912, Constipation, Give if no BM 24 hr after prior interventions or if BM is desired within 2 hr. Give concomitantly with any scheduled bowel medications ordered, Routine Given 10/03/2024 6:25 PM EST 20 g lactulose (Chronulac) (0.67 gram/mL) oral liquid 20 g 20 g, Oral, DAILY PRN, Starting on Wed10/01/24 at 0848, Until Wed10/10/24 at 1912, Constipation, Give an additional (2nd) dose of lactulose 2 hr after 1st dose if still no BM. Disregard if 1st dose of lactulose not ordered. Give concomitantly with any scheduled bowel medications ordered. , Routine Given 10/08/2024 9:01 AM EST 20 g Given 10/03/2024 2:44 PM EST 20 g lidocaine (Lidoderm) 5% patch 1 patch 1 patch, Transdermal, Administer over 12 Hours, EVERY 24 HOURS, First dose on Tu09/26/24 at 2245, Until Discontinued, Apply patch(es) for 12 hours, and then remove for 12 hours., Routine Patch Applied 10/06/2024 10:23 PM EST 1 patch 15- Thigh Anterior (Left) Patch Applied 10/05/2024 10:25 PM EST 1 patch 17- Thigh Posterior (Left) Patch Applied 10/04/2024 9:45 PM EST 1 patch 17- Thigh Posterior (Left) lidocaine (Xylocaine) 1% (10 mg/mL) injection 100 mg 100 mg (10 mL), Subcutaneous, ONCE, 1 dose, On Wed10/09/24 at 1045, For wound vac change, Routine Given 10/09/2024 12:22 PM EST 100 mg losartan (Cozaar) tablet 50 mg 50 mg, Oral, DAILY, First dose on Wed10/01/24 at 0900, Until Discontinued, Routine Given 10/10/2024 8:32 AM EST 50 mg Given 10/09/2024 9:02 AM EST 50 mg Given 10/08/2024 8:59 AM EST 50 mg magnesium citrate oral liquid 296 mL 296 mL, Oral, ONCE PRN, 1 dose, Starting on 10/01/24 at 0848, Until Wed10/10/24 at 1912, Constipation, Give if no BM 2 hr after previous interventions. If 2 hr after mag citrate there is still no BM, see order for tap water enema, if placed. Give concomitantly with any scheduled bowel medications ordered., Routine magnesium oxide (Mag-Ox) tablet 400 mg 400 mg, Oral, 2 TIMES DAILY, First dose on 09/30/24 at 1200, Until Discontinued, Routine Given 10/10/2024 8:31 AM EST 400 mg Given 10/09/2024 8:23 PM EST 400 mg Given 10/09/2024 9:02 AM EST 400 mg magnesium sulfate 1 g in dextrose 5% 100 mL infusion 1 g, Intravenous, ONCE, 1 dose, On 10/01/24 at 0600, Administer over 60 Minutes New Bag 10/01/2024 6:01 AM EST 1 g 100 mL/hr magnesium sulfate 1 g in dextrose 5% 100 mL infusion 1 g, Intravenous, ONCE, 1 dose, On Wed10/03/24 at 0600, Administer over 60 Minutes New Bag 10/03/2024 6:00 AM EST 1 g 100 mL/hr Right Arm magnesium sulfate 2 g in sterile water 50 mL infusion 2 g, Intravenous, EVERY 2 HOURS PRN, Starting on Wed09/26/24 at 2156, Until Wed10/01/24 at 0543, Administer over 120 Minutes, Hypomagnesemia, Administer one 2 g IV bag, over 120 minutes for serum magnesium of 0.65 - 0.79 mMol/L. New Bag 09/29/2024 12:30 AM EST 2 g 25 mL/hr New Bag 09/28/2024 12:52 AM EST 2 g 25 mL/hr New Bag 09/27/2024 1:15 AM EST 2 g 25 mL/hr melatonin tablet 3 mg 3 mg, Oral, NIGHTLY, First dose on Wed10/02/24 at 0015, Until Discontinued, Routine Given 10/09/2024 8:23 PM EST 3 mg Given 10/08/2024 8:28 PM EST 3 mg Given 10/07/2024 8:23 PM EST 3 mg methylphenidate (Ritalin) tablet 20 mg 20 mg, Oral, 3 TIMES DAILY, First dose on Wed09/26/24 at 1630, Until Discontinued, Routine Given 10/10/2024 4:3 2 PM EST 20 mg Given 10/10/2024 11:07 AM EST 20 mg Given 10/10/2024 7:02 AM EST 20 mg metoprolol succinate XL (Toprol-XL) tablet 25 mg 25 mg, Oral, DAILY, First dose on Wed10/01/24 at 0900, Until Discontinued, DO NOT CRUSH OR OPEN, Routine Given 10/10/2024 8:31 AM EST 25 mg Given 10/09/2024 9:02 AM EST 25 mg Given 10/08/2024 9:00 AM EST 25 mg metoprolol tartrate (Lopressor) tablet 12.5 mg 12.5 mg, Oral, EVERY 12 HOURS SCHEDULED (2 times per day), First dose on Wed09/29/24 at 1000, Until Discontinued, Routine Given 09/30/2024 9:12 PM EST 12.5 mg Given 09/30/2024 8:54 AM EST 12.5 mg Given 09/29/2024 8:48 PM EST 12.5 mg oxyCODONE (Roxicodone) tablet 10 mg 10 mg, Oral, EVERY 4 HOURS PRN, Starting on Wed09/27/24 at 0931, Until Wed10/10/24 at 1912, Pain, severe pain (7-10), If multiple routes of administration ordered, oral route first line., Routine Given 10/08/2024 8:28 PM EST 10 mg Given 10/06/2024 8:42 AM EST 10 mg Given 09/30/2024 1:41 AM EST 10 mg oxyCODONE (Roxicodone) tablet 5 mg 5 mg, Oral, EVERY 4 HOURS PRN, Starting on Wed09/26/24 at 2215, Until Wed09/27/24 at 0937, Pain, Routine Given 09/27/2024 6:07 AM EST 5 mg Given 09/27/2024 2:17 AM EST 5 mg Given 09/26/2024 10:25 PM EST 5 mg oxyCODONE (Roxicodone) tablet 5 mg 5 mg, Oral, ONCE, 1 dose, On Wed09/27/24 at 0430, Routine Given 09/27/2024 4:09 AM EST 5 mg oxyCODONE (Roxicodone) tablet 5 mg 5 mg, Oral, EVERY 4 HOURS PRN, Starting on Wed09/27/24 at 0931, Until Wed10/10/24 at 1912, Pain, moderate pain (4-6), For adults, may give in place of other agent(s) ordered for pain (7-10) at patient request. If multiple routes of administration ordered, oral route first line., Routine Given 10/09/2024 6:28 AM EST 5 mg Given 10/06/2024 3:50 AM EST 5 mg oxyCODONE (Roxicodone) tablet 5 mg 5 mg, Oral, EVERY 4 HOURS PRN, Starting on Wed09/27/24 at 0931, Until Wed10/10/24 at 1912, Pain, Breakthrough pain rescue dose, For moderate or severe pain (4-10) unrelieved at least 60 minutes after initial PRN dose was administered Max 3 doses/24 hours. If pain still unrelieved after 3rd rescue dose within 24 hours, contact provider. If multiple routes of administration ordered, oral route first line., Routine Given 10/09/2024 8:23 PM EST 5 mg Given 10/09/2024 1:48 AM EST 5 mg Given 10/07/2024 5:12 PM EST 5 mg pantoprazole EC (Protonix) tablet 40 mg 40 mg, Oral, DAILY, First dose on Wed09/26/24 at 1600, Until Discontinued, DO NOT CRUSH OR OPEN Given 10/10/2024 8:31 AM EST 40 mg Given 10/09/2024 9:02 AM EST 40 mg Given 10/08/2024 9:00 AM EST 40 mg piperacillin-tazobactam (Zosyn) 3.375 g vial attach to sodium chloride 0.9% 50 mL Mini-Bag Plus 3.375 g, Intravenous, EVERY 8 HOURS, 5 doses, First dose on Wed09/26/24 at 1500, Last dose on Wed09/27/24 at 1500, Administer over 4 Hours, Warning Vesicant/Irritant Medication Per organ pipe maker metal labeling, do not administer or Y-site with lactated ringers., 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 Give concomitantly with any scheduled bowel medications ordered. , Routine Given 10/07/2024 6:59 PM EST 17 g polyethylene glycoL (Miralax) packet 17 g 17 g, Oral, DAILY, First dose on Wed10/02/24 at 1015, Until Discontinued, Routine Given 10/03/2024 8:32 AM EST 17 g Given 10/02/2024 10:11 AM EST 17 g polyethylene glycoL (Miralax) packet 17 g 17 g, Oral, 2 TIMES DAILY, First dose (after last modification) on 10/07/24 at 0915, Until Discontinued, Routine potassium chloride 10 mEq in sterile water 100 mL infusion 10 mEq, Intravenous, EVERY 1 HOUR PRN, Starting on Angelita 09/28/24 at 0532, Until 09/30/24 at 1017, Administer over 60 Minutes, hypokalemia, Administer 6 doses, each over 60 minutes for serum potassium (mMol/L) of 2.8 - 3.2 New Bag 09/29/2024 5:57 AM EST 10 mEq 100 mL/hr New Bag 09/29/2024 4:56 AM EST 10 mEq 100 mL/hr New Bag 09/29/2024 3:58 AM EST 10 mEq 100 mL/hr potassium chloride ER (Klor-Con M) crystal tablet 20 mEq 20 mEq, Oral, ONCE, 1 dose, On 09/30/24 at 1200, potassium chloride ER particle/crystal tablets (Klor-Con M) may be broken in half and each half swallowed separately. Tablets can be dissolved in ~4 ounces of water; allow ~2 minutes to dissolve, stir well and drink immediately. Do not crush, chew, or suck on tablet., Routine Given 09/30/2024 12:02 PM EST 20 mEq potassium chloride ER (Klor-Con M) crystal tablet 20 mEq 20 mEq, Oral, ONCE, 1 dose, On 10/01/24 at 0630, potassium chloride ER particle/crystal tablets (Klor-Con M) may be broken in half and each half swallowed separately. Tablets can be dissolved in ~4 ounces of water; allow ~2 minutes to dissolve, stir well and drink immediately. Do not crush, chew, or suck on tablet., Routine Given 10/01/2024 6:16 AM EST 20 mEq potassium chloride ER (Klor-Con M) crystal tablet 20 mEq 20 mEq, Oral, ONCE, 1 dose, On 10/02/24 at 1015, potassium chloride ER particle/crystal tablets (Klor-Con M) may be broken in half and each half swallowed separately. Tablets can be dissolved in ~4 ounces of water; allow ~2 minutes to dissolve, stir well and drink immediately. Do not crush, chew, or suck on tablet., Routine Given 10/02/2024 10:11 AM EST 20 mEq potassium chloride ER (Klor-Con M) crystal tablet 40-60 mEq 40-60 mEq, Oral, PER POTASSIUM PROTOCOL, Starting on 09/30/24 at 0101, Until 10/01/24 at 0543, potassium replenishment, DO NOT CRUSH OR OPEN For serum potassium (mMol/L) of 3.3-3.8 administer Potassium oral liquid or ER tablets 40 mEq. For serum potassium (mMol/L) of 2.8-3.2 administer Potassium oral liquid or ER tablets 60 mEq. For serum potassium less than 2.8 Call provider for potassium dosing. potassium chloride ER particle/crystal tablets (Klor-Con M) may be broken in half and each half swallowed separately. Tablets can be dissolved in ~4 ounces of water; allow ~2 minutes to dissolve, stir well and drink immediately. Do not crush, chew, or suck on tablet., Routine Given 09/30/2024 1:36 AM EST 40 mEq potassium chloride ER (Klor-Con M) crystal tablet 60 mEq 60 mEq, Oral, ONCE, 1 dose, On 09/27/24 at 0130, potassium chloride ER particle/crystal tablets (Klor-Con M) may be broken in half and each half swallowed separately. Tablets can be dissolved in ~4 ounces of water; allow ~2 minutes to dissolve, stir well and drink immediately. Do not crush, chew, or suck on tablet., Routine Given 09/27/2024 1:15 AM EST 60 mEq potassium chloride ER (Klor-Con M) crystal tablet 60 mEq 60 mEq, Oral, ONCE, 1 dose, On Angelita 09/28/24 at 0100, potassium chloride ER particle/crystal tablets (Klor-Con M) may be broken in half and each half swallowed separately. Tablets can be dissolved in ~4 ounces of water; allow ~2 minutes to dissolve, stir well and drink immediately. Do not crush, chew, or suck on tablet., Routine Given 09/28/2024 12:49 AM EST 60 mEq protriptyline (Vivactil) tablet 10 mg 10 mg, Oral, 3 TIMES DAILY, First dose on Wed09/29/24 at 1500, Until Discontinued, Routine Given 10/10/2024 2:46 PM EST 10 mg Given 10/10/2024 8:36 AM EST 10 mg Given 10/09/2024 9:16 PM EST 10 mg senna-docusate (Pericolace) 8.6-50 mg per tablet 2 tablet 2 tablet, Oral, 2 TIMES DAILY, First dose on Wed09/26/24 at 2100, Until Discontinued, Routine Given 10/03/2024 8:32 AM EST 2 tablets Given 10/02/2024 8:22 PM EST 2 tablets Given 10/02/2024 8:14 AM EST 2 tablets senna-docusate (Pericolace) 8.6-50 mg per tablet 3 tablet 3 tablet, Oral, 2 TIMES DAILY, First dose (after last modification) on Wed10/07/24 at 0915, Until Discontinued, Routine Given 10/10/2024 8:31 AM EST 3 table ts Given 10/08/2024 8:29 PM EST 3 tablets Given 10/08/2024 8:56 AM EST 3 tablets sodium chloride 0.9% infusion 100 mL/hr, Intravenous, CONTINUOUS, Starting on Wed09/27/24 at 1800, Until Wed09/28/24 at 1759 New Bag 09/27/2024 5:54 PM EST 100 mL/hr 100 mL/hr tiZANidine (Zanaflex) tablet 4 mg 4 mg, Oral, ONCE, 1 dose, On Wed10/04/24 at 0115, Routine Given 10/04/2024 1:07 AM EST 4 mg vancomycin (Vancocin) 1 gram in sodium chloride 0.9% 250 mL infusion 1 g, Intravenous, at 250 mL/hr, ONCE, 1 dose, On Wed09/26/24 at 1530, Maximum infusion rate is 1 gram/hour. If flushing of the face, neck, upper body, arms, and/or back occurs decrease infusion rate by 50% to reduce the severity of symptoms. This medication may have an associated drug lab level. Please see MAR for scheduled level. Warning Vesicant/Irritant Medication , Routine, Indication for (Active or Suspected): Other (See comment) Given 09/26/2024 4:18 PM EST 1 g New Bag 09/26/2024 3:30 PM EST 1 g 250 mL/hr vancomycin (Vancocin) 1 gram in sodium chloride 0.9% 250 mL infusion 1 g, Intravenous, at 250 mL/hr, EVERY 8 HOURS, First dose (after last modification) on Wed10/06/24 at 1200, Until Discontinued, Maximum infusion rate is 1 gram/hour. If flushing of the face, neck, upper body, arms, and/or back occurs decrease infusion rate by 50% to reduce the severity of symptoms. This medication may have an associated drug lab level. Please see MAR for scheduled level. Warning Vesicant/Irritant Medication , Routine, Indication for (Active or Suspected): Bacteremia/Sepsis New Bag 10/07/2024 3:19 PM EST 1 g 2 50 mL/hr New Bag 10/07/2024 6:35 AM EST 1 g 250 mL/hr New Bag 10/06/2024 10:23 PM EST 1 g 250 mL/hr vancomycin (Vancocin) 1.25 gram in dextrose 5% 250 mL infusion 1,250 mg, Intravenous, at 200 mL/hr, EVERY 8 HOURS, First dose on Wed09/27/24 at 0000, Until Discontinued, Maximum infusion rate is 1 gram/hour. If flushing of the face, neck, upper body, arms, and/or back occurs decrease infusion rate by 50% to reduce the severity of symptoms. This medication may have an associated drug lab level. Please see MAR for scheduled level. Warning Vesicant/Irritant Medication , Routine, Indication for (Active or Suspected): Bacteremia/Sepsis New Bag 09/28/2024 8:53 AM EST 1,250 mg 200 mL/hr New Bag 09/27/2024 11:37 PM EST 1,250 mg 200 mL/hr New Bag 09/27/2024 3:19 PM EST 1,250 mg 200 mL/hr vancomycin (Vancocin) 1.25 gram in dextrose 5% 250 mL infusion 1.25 g, Intravenous, at 200 mL/hr, EVERY 8 HOURS, First dose (after last modification) on Wed10/04/24 at 1800, Until Discontinued, Maximum infusion rate is 1 gram/hour. If flushing of the face, neck, upper body, arms, and/or back occurs decrease infusion rate by 50% to reduce the severity of symptoms. This medication may have an associated drug lab level. Please see MAR for scheduled level. Warning Vesicant/Irritant Medication , Routine, Indication for (Active or Suspected): Bacteremia/Sepsis New Bag 10/06/2024 1:57 AM EST 1.25 g 200 mL/hr New Bag 10/05/2024 5:10 PM EST 1.25 g 200 mL/hr New Bag 10/05/2024 9:21 AM EST 1.25 g 200 mL/hr vancomycin (Vancocin) 1.5 gram in sodium chloride 0.9% 500 mL infusion 1.5 g, Intravenous, at 333.3 mL/hr, EVERY 8 HOURS, First dose (after last modification) on Wed09/28/24 at 1600, Until Discontinued, Maximum infusion rate is 1 gram/hour. If flushing of the face, neck, upper body, arms, and/or back occurs decrease infusion rate by 50% to reduce the severity of symptoms. This medication may have an associated drug lab level. Please see MAR for scheduled level. Warning Vesicant/Irritant Medication , Routine, Indication for (Active or Suspected): Bacteremia/Sepsis New Bag 10/04/2024 10:04 AM EST 1.5 g 333.3 mL/hr 10/04/2024 12:16 AM EST 1.5 g 333.3 mL/hr New 10/03/2024 4:57 PM EST 1.5 g 333.3 mL/hr venlafaxine XR (Effexor-XR) capsule 225 mg 225 mg, Oral, DAILY, First dose on Wed09/26/24 at 1600, Until Discontinued, DO NOT CRUSH OR OPEN, Routine Given 10/10/2024 8:32 AM EST 225 mg Given 10/09/2024 9:02 AM EST 225 mg Given 10/08/2024 8:59 AM EST 225 mg documented in this encounter Active and Recently Administered Medications Times are shown in EST. Scheduled Medication Order 10/08/2024 10/09/2024 10/10/2024 acetaminophen (Tylenol) tablet 975 mg 975 mg, Oral, EVERY 6 HOURS SCHEDULED, First dose on Wed09/26/24 at 1500, Until Discontinued, Maximum dose of acetaminophen is 4,000 mg from all sources in 24 hours. When ordered for pain, acetaminophen should be given even when other ordered pain medications are indicated., Routine 0604 (Given - Provider: Misael Bo RN)1254 (Given - Provider: Indira Tracey RN)1746 (Given - Provider: Indira Tracey RN) 0035 (Given - Provider: Jordyn Navas RN)0616 (Given - Provider: Jordyn Navas RN)1222 (Given - Provider: Indira Tracey RN)1708 (Given - Provider: Jeana Cabrera LPN) 0032 (Given - Provider: Lauren Zavala RN)0604 (Given - Provider: Lauren Zavala RN)1107 (Given - Provider: Terell Araiza RN) aspirin EC tablet 81 mg 81 mg, Oral, DAILY, First dose on Wed09/26/24 at 1600, Until Discontinued, Routine 0856 (Given - Provider: Indira Tracey RN) 0902 (Given - Provider: Jaja Diallo RN) 0831 (Given - Provider: Terell Araiza RN) atorvastatin (Lipitor) tablet 80 mg (CANCELED) 80 mg, Oral, EVERY EVENING, First dose on Wed09/26/24 at 1700, Until Discontinued, Routine 1746 (Given - Provider: Indira Tracey RN) 1708 (Given - Provider: Jeana Cabrera LPN) DAPTOmycin (Cubicin) 700 mg in sodium chloride 0.9% 64 mL (CANCELED) 700 mg (rounded from 692 mg = 8 mg/kg/dose ? 86.5 kg Adjusted weight), Intravenous, at 128 mL/hr, EVERY 24 HOURS, First dose (after last modification) on Wed10/07/24 at 2215, Until Discontinued, Routine, Indication for (Active or Suspected): Bacteremia/Sepsis, Restricted Antibiotic: Please indicate the most appropriate choice: ID Approval by Amaya Hernandez [id number] (New Bag - Provider: Jordyn Navas RN)2226 (Stopped - Provider: Jordyn Navas RN) 2115 (New Bag - Provider: Lauren Zavala RN)2146 (Stopped - Provider: Lauren Zavala, DAVID) DAPTOmycin (Cubicin) 700 mg in sodium chloride 0.9% 64 mL 700 mg (rounded from 692 mg = 8 mg/kg/dose ? 86.5 kg Adjusted weight), Intravenous, at 128 mL/hr, EVERY 24 HOURS, First dose (after last modification) on Wed10/10/24 at 1500, Until Discontinued, Routine, Indication for (Active or Suspected): Bacteremia/Sepsis, Restricted Antibiotic: Please indicate the most appropriate choice: ID Approval by Amaya Hernandez [id number] (New Bag - Provider: Teerll Araiza, RN)1516 (Stopped - Provider: Terell Araiza RN) heparin (porcine) (5,000 units/1 mL) subcutaneous injection 5,000 Units 5,000 Units, Subcutaneous, EVERY 8 HOURS SCHEDULED, First dose on Wed09/26/24 at 2200, Until Discontinued, Routine 0604 (Given - Provider: Misael Bo RN)1420 (Given - Provider: Indira Tracey RN)2157 (Given - Provider: Jordyn Navas RN) 0615 (Given - Provider: Jordyn Navas, DAVID)1415 (Given - Provider: Indira Tracey, DAVID)2116 (Given - Provider: Lauren Zavala RN) 0605 (Given - Provider: Lauren Zavala RN)1446 (Given - Provider: Terell Araiza, RN) insulin glargine-ygfn (Semglee) (100 unit/mL) subcutaneous injection vial 25 Units 25 Units, Subcutaneous, 2 TIMES DAILY, First dose (after last modification) on Wed09/28/24 at 0900, Until Discontinued, Routine 0903 (Given - Provider: Indira Tracey RN)2030 (Given - Provider: Jordyn Navas RN) 0904 (Given - Provider: Jaja Diallo RN)202 (Given - Provider: Lauren Zavala RN) 0834 (Given - Provider: Terell Araiza, RN) insulin lispro (HumaLOG;Admelog) (100 unit/mL) subcutaneous injection vial 0-11 Units 0-11 Units, Subcutaneous, 3 TIMES DAILY WITH MEALS, First dose on Wed09/27/24 at 1730, Until Discontinued, [employer] Give 1 unit for every 5 grams carbohydrate. Hold if not eating or if BG less than 70 mg/dL. , Routine 0930 (Given - Provider: Indira Tracey RN)1421 (Given - Provider: Indira Tracey, DAVID)1754 (Given - Provider: Indira Tracey, DAVID) 0800 (Given - Provider: Jaja Diallo RN)1409 (Given - Provider: Indira Tracey RN - Comment: patient ate late lunch)1810 (Given - Provider: Indira Tracey RN) 0834 (Given - Provider: Terell Araiza, RN)1333 (Given - Provider: Terell Araiza RN)1700 (Due) insulin lispro (HumaLOG;Admelog) (100 unit/mL) subcutaneous injection vial 1-6 Units(Linked Group 1) 1-6 Units, Subcutaneous, EVERY 4 HOURS SCHEDULED, First dose on Wed09/27/24 at 1730, Until Discontinued, CORRECTION BOLUS [1-6 Units] Moderate [...] than 240 mg/dL in 2 hours., Routine 0000 (Not Given - Provider: Misael Bo RN - Reason: Order parameters not met)0402 (Given - Provider: Misael Bo RN)0904 (Given - Provider: Indira Tracey RN)1420 (Given - Provider: Indira Tracey RN)1609 (Given - Provider: Indira Tracey RN)2030 (Given - Provider: Jordyn Navas RN) 0035 (Given - Provider: Jordyn Navas RN)0400 (Not Given - Provider: Jordyn Navas RN - Reason: Patient/family refused)0903 (Given - Provider: Jaja Diallo, DAVID)1225 (Given - Provider: Indira Tracey RN)1600 (Not Given - Provider: Indira Tracey RN - Reason: Order parameters not met)2000 (Not Given - Provider: Lauren Zavala RN - Reason: Order parameters not met) 0000 (Not Given - Provider: Lauren Zavala RN - Reason: Order parameters not met)0400 (Not Given - Provider: Lauren Zavala RN - Reason: Order parameters not met)0747 (Given - Provider: Terell Araiza RN - Comment: BG 141)1112 (Given - Provider: Terell Araiza RN - Comment: BG 174)1632 (Given - Provider: Terell Araiza RN) lidocaine (Lidoderm) 5% patch 1 patch 1 patch, Transdermal, Administer over 12 Hours, EVERY 24 HOURS, First dose on Wed09/26/24 at 2245, Until Discontinued, Apply patch(es) for 12 hours, and then remove for 12 hours., Routine 215 (Not Given - Provider: Jordyn Navas RN - Reason: Patient/family refused) 2245 (Not Given - Provider: Lauren Zavala RN - Reason: Patient/family refused) lidocaine (Xylocaine) 1% (10 mg/mL) injection 100 mg (COMPLETED) 100 mg (10 mL), Subcutaneous, ONCE, 1 dose, On Wed10/09/24 at 1045, For wound vac change, Routine 1222 (Given - Provider: Indira Tracey RN) losartan (Cozaar) tablet 50 mg 50 mg, Oral, DAILY, First dose on Wed10/01/24 at 0900, Until Discontinued, Routine 0859 (Given - Provider: Indira Tracey RN) 0902 (Given - Provider: Jaja Diallo, DAVID) 0832 (Given - Provider: Terell Araiza RN) magnesium oxide (Mag-Ox) tablet 400 mg 400 mg, Oral, 2 TIMES DAILY, First dose on Wed09/30/24 at 1200, Until Discontinued, Routine 0900 (Given - Provider: Indira Tracey RN)2027 (Given - Provider: Jordyn Navas RN) 09 (Given - Provider: Jaja Diallo RN)2022 (Given - Provider: Lauren Zavala RN) 0831 (Given - Provider: Terell Araiza RN) melatonin tablet 3 mg 3 mg, Oral, NIGHTLY, First dose on Wed10/02/24 at 0015, Until Discontinued, Routine 2027 (Given - Provider: Jordyn Navas RN) 2022 (Given - Provider: Lauren Zavala, DAVID) methylphenidate (Ritalin) tablet 20 mg 20 mg, Oral, 3 TIMES DAILY, First dose on Wed09/26/24 at 1630, Until Discontinued, Routine 0856 (Given - Provider: Indira Tracey RN)1253 (Given - Provider: Indira Tracey RN)1746 (Given - Provider: Indira Tracey RN - Comment: based on previous dose) 0637 (Given - Provider: Jordyn Navas RN)1222 (Given - Provider: Indira Tracey RN)1708 (Given - Provider: Jeana Cabrera LPN) 0702 (Given - Provider: Lauren Zavala RN)1107 (Given - Provider: Terell Araiza RN)1632 (Given - Provider: Terell Araiza RN) metoprolol succinate XL (Toprol-XL) tablet 25 mg 25 mg, Oral, DAILY, First dose on Wed10/01/24 at 0900, Until Discontinued, DO NOT CRUSH OR OPEN, Routine 0900 (Given - Provider: Indira Tracey RN) 09 (Given - Provider: Jaja Diallo RN) 0831 (Given - Provider: Terell Araiza RN) pantoprazole EC (Protonix) tablet 40 mg 40 mg, Oral, DAILY, First dose on Wed09/26/24 at 1600, Until Discontinued, DO NOT CRUSH OR OPEN 0900 (Given - Provider: Indira Tracey RN) 09 (Given - Provider: Jaja Diallo RN) 0831 (Given - Provider: Terell Araiza RN) polyethylene glycoL (Miralax) packet 17 g 17 g, Oral, 2 TIMES DAILY, First dose (after last modification) on Wed10/07/24 at 0915, Until Discontinued, Routine 0900 (Not Given - Provider: Indira Tracey RN - Reason: Patient/family refused)2099 (Not Given - Provider: Jordyn Navas RN - Reason: Patient/family refused) 09 (Not Given - Provider: Jaja Diallo RN - Reason: Patient/family refused)2099 (Not Given - Provider: Lauren Zavala RN - Reason: Patient/family refused) 0900 (Not Given - Provider: Terell Araiza RN - Reason: Patient/family refused) protriptyline (Vivactil) tablet 10 mg 10 mg, Oral, 3 TIMES DAILY, First dose on Wed09/29/24 at 1500, Until Discontinued, Routine 0900 (Given - Provider: Indira Tracey RN)1602 (Given - Provider: Indira Tracey RN)203 (Given - Provider: Jordyn Navas RN) 0903 (Given - Provider: Jaja Diallo RN)1711 (Given - Provider: Jeana Cabrera LPN)2116 (Given - Provider: Lauren Zavala RN) 0836 (Given - Provider: Terell Araiza RN)1446 (Given - Provider: Terell Araiza RN) senna-docusate (Pericolace) 8.6-50 mg per tablet 3 tablet 3 tablet, Oral, 2 TIMES DAILY, First dose (after last modification) on 10/07/24 at 0915, Until Discontinued, Routine 0856 (Given - Provider: Indira Traecy RN)2028 (Given - Provider: Jordyn Navas RN) 09 (Not Given - Provider: Jaja Diallo RN - Reason: Patient/family refused)2100 (Not Given - Provider: Lauren Zavala RN - Reason: Patient/family refused) 0831 (Given - Provider: Terell Araiza RN) venlafaxine XR (Effexor-XR) capsule 225 mg 225 mg, Oral, DAILY, First dose on Wed09/26/24 at 1600, Until Discontinued, DO NOT CRUSH OR OPEN, Routine 0859 (Given - Provider: Indira Tracey, RN) 0902 (Given - Provider: Jaja Diallo, DAVID) 0832 (Given - Provider: Terell Araiza, DAVID) PRN Medication Order 10/08/2024 10/09/2024 10/10/2024 bisacodyL (Dulcolax) suppository 10 mg(Linked Group 2) 10 mg, Rectal, DAILY PRN, Starting on Wed10/01/24 at 0848, Until Wed10/10/24 at 1912, Constipation, Give if no BM within last 24 hr and rectal fullness is reported or assessed. Give concomitantly with any scheduled bowel medications ordered. , Routine bisacodyL EC (Dulcolax) tablet 10 mg(Linked Group 2) 10 mg, Oral, 2 TIMES DAILY PRN, Starting on Wed10/01/24 at 0848, Until Wed10/10/24 at 191, Constipation, Give if no BM after 24 hr after prior interventions. BM expected in 6-8 hours. If BM desired sooner, use next ordered agent. Give concomitantly with any scheduled bowel medications ordered., Routine dextrose 50% intravenous solution 25 g(Linked Group 3) 25 g, Intravenous, EVERY 15 MIN PRN, Starting on Wed09/27/24 at 1700, Until Wed10/10/24 at 1912, Low blood sugar, ??Oral treatment preferred For Blood Glucose 50 to 70 mg/dL: ?? -??IF ABLE TO DRINK, give 120 mL juice or regular (not diet) soda - IF NPO, give 15 gram glucose 40% oral gel massaged into buccal mucosa - IF UNCONSCIOUS OR UNCOOPERATIVE, give 25 gram dextrose IV - IF NO IV ACCESS, give 1 mg glucagon IM. For Blood Glucose LESS than 50 mg/dL: ?? -??IF ABLE TO DRINK, give 240 mL juice or regular (not diet) soda - IF NPO, give 30 gram glucose 40% oral gel massaged into buccal mucosa - IF UNCONSCIOUS OR UNCOOPERATIVE, give 25 gram dextrose IV - IF NO IV ACCESS, 1 mg glucagon IM. Recheck BG in 15 minutes. May repeat juice/soda, gel, dextrose or glucagon once per episode. Notify provider if hypoglycemia does not resolve after two treatments. Providers should consider the following: administering longer-acting treatments for the duration of active insulin or hypoglycemia agent for persistent hypoglycemia and re-evaluating active insulin orders before administering the next dose. Warning Vesicant/Irritant Medication , Routine glucagon (Glucagen) (1 mg/mL) injection solution 1 mg(Linked Group 3) 1 mg, Intramuscular, EVERY 15 MIN PRN, Starting on Wed09/27/24 at 1700, Until Wed10/10/24 at 1911, Low blood sugar, ??Oral treatment preferred For Blood Glucose 50 to 70 mg/dL: ?? -??IF ABLE TO DRINK, give 120 mL juice or regular (not diet) soda - IF NPO, give 15 gram glucose 40% oral gel massaged into buccal mucosa - IF UNCONSCIOUS OR UNCOOPERATIVE, give 25 gram dextrose IV - IF NO IV ACCESS, give 1 mg glucagon IM. For Blood Glucose LESS than 50 mg/dL: ?? -??IF ABLE TO DRINK, give 240 mL juice or regular (not diet) soda - IF NPO, give 30 gram glucose 40% oral gel massaged into buccal mucosa - IF UNCONSCIOUS OR UNCOOPERATIVE, give 25 gram dextrose IV - IF NO IV ACCESS, 1 mg glucagon IM. Recheck BG in 15 minutes. May repeat juice/soda, gel, dextrose or glucagon once per episode. Notify provider if hypoglycemia does not resolve after two treatments. Providers should consider the following: administering longer-acting treatments for the duration of active insulin or hypoglycemia agent for persistent hypoglycemia and re-evaluating active insulin orders before administering the next dose., Routine glucose (Glutose) 40% oral geL(Linked Group 3) 15-30 g of glucose, Buccal, EVERY 15 MIN PRN, Starting on Wed09/27/24 at 1700, Until Wed10/10/24 at 1911, Low blood sugar, ??Oral treatment preferred For Blood Glucose 50 to 70 mg/dL: ?? -??IF ABLE TO DRINK, give 120 mL juice or regular (not diet) soda - IF NPO, give 15 gram glucose 40% oral gel massaged into buccal mucosa - IF UNCONSCIOUS OR UNCOOPERATIVE, give 25 gram dextrose IV - IF NO IV ACCESS, give 1 mg glucagon IM. For Blood Glucose LESS than 50 mg/dL: ?? -??IF ABLE TO DRINK, give 240 mL juice or regular (not diet) soda - IF NPO, give 30 gram glucose 40% oral gel massaged into buccal mucosa - IF UNCONSCIOUS OR UNCOOPERATIVE, give 25 gram dextrose IV - IF NO IV ACCESS, 1 mg glucagon IM. Recheck BG in [...] weight of tube = 37.5 grams.), Routine hydrALAZINE (Apresoline) (20 mg/mL) injection 5 mg 5 mg, Intravenous, EVERY 6 HOURS PRN, Starting on Wed10/01/24 at 0219, Until Wed10/10/24 at 1911, High Blood Pressure, Please give for SBP >150 and/ or if new symptoms arise lactulose (Chronulac) (0.67 gram/mL) oral liquid 20 g(Linked Group 2) 20 g, Oral, DAILY PRN, Starting on Wed10/01/24 at 0848, Until Wed10/10/24 at 1911, Constipation, Give if no BM 24 hr after prior interventions or if BM is desired within 2 hr. Give concomitantly with any scheduled bowel medications ordered, Routine lactulose (Chronulac) (0.67 gram/mL) oral liquid 20 g(Linked Group 2) 20 g, Oral, DAILY PRN, Starting on 10/01/24 at 0848, Until Wed10/10/24 at 1911, Constipation, Give an additional (2nd) dose of lactulose 2 hr after 1st dose if still no BM. Disregard if 1st dose of lactulose not ordered. Give concomitantly with any scheduled bowel medications ordered. , Routine 900 (Given - Provider: Indira Tracey RN) magnesium citrate oral liquid 296 mL(Linked Group 2) 296 mL, Oral, ONCE PRN, 1 dose, Starting on Wed10/01/24 at 0848, Until Wed10/10/24 at 1911, Constipation, Give if no BM 2 hr after previous interventions. If 2 hr after mag citrate there is still no BM, see order for tap water enema, if placed. Give concomitantly with any scheduled bowel medications ordered., Routine oxyCODONE (Roxicodone) tablet 10 mg(Linked Group 4) 10 mg, Oral, EVERY 4 HOURS PRN, Starting on Wed09/27/24 at 0931, Until Wed10/10/24 at 1912, Pain, severe pain (7-10), If multiple routes of administration ordered, oral route first line., Routine 2027 (Given - Provider: Jordyn Navas RN) 627 (See Alternative - Provider: Jordyn Navas RN) oxyCODONE (Roxicodone) tablet 5 mg(Linked Group 4) 5 mg, Oral, EVERY 4 HOURS PRN, Starting on Wed09/27/24 at 0931, Until Wed10/10/24 at 1912, Pain, moderate pain (4-6), For adults, may give in place of other agent(s) ordered for pain (7-10) at patient request. If multiple routes of administration ordered, oral route first line., Routine 2027 (See Alternative - Provider: Jordyn Navas RN) 627 (Given - Provider: Jordyn Navas RN - Comment: prior to dressing change) oxyCODONE (Roxicodone) tablet 5 mg 5 mg, Oral, EVERY 4 HOURS PRN, Starting on Wed09/27/24 at 0931, Until Wed10/10/24 at 1912, Pain, Breakthrough pain rescue dose, For moderate or severe pain (4-10) unrelieved at least 60 minutes after initial PRN dose was administered Max 3 doses/24 hours. If pain still unrelieved after 3rd rescue dose within 24 hours, contact provider. If multiple routes of administration ordered, oral route first line., Routine 147 (Given - Provider: Jordyn Navas RN)2022 (Given - Provider: Lauren Zavala RN) polyethylene glycoL (Miralax) packet 17 g(Linked Group 2) 17 g, Oral, DAILY PRN, Starting on Wed10/01/24 at 0848, Until Wed10/10/24 at 1912, Constipation, Give if no BM within last 24 hr. Give concomitantly with any scheduled bowel medications ordered. , Routine Linked Groups Order Group 1: POCT Fingerstick Glucose (CANCELED) Routine, EVERY 4 HOURS, First occurrence on Wed09/27/24 at 1710, Until Specified, Consider choosing EVERY 4 HOURS [...] EVERY 4 HOURS SCHEDULED, First dose on Wed09/27/24 at 1730, Until Discontinued, CORRECTION BOLUS [1-6 Units] Moderate [...] than 240 mg/dL in 2 hours., Routine Group 2: polyethylene glycoL (Miralax) packet 17 gJump to med 17 g, Oral, DAILY PRN, Starting on Wed10/01/24 at 0848, Until Wed10/10/24 at 191, Constipation, Give if no BM within last 24 hr. Give concomitantly with any scheduled bowel medications ordered. , Routine And bisacodyL (Dulcolax) suppository 10 mgJump to med 10 mg, Rectal, DAILY PRN, Starting on 10/01/24 at 0848, Until Wed10/10/24 at 1912, Constipation, Give if no BM within last 24 hr and rectal fullness is reported or assessed. Give concomitantly with any scheduled bowel medications ordered. , Routine And bisacodyL EC (Dulcolax) tablet 10 mgJump to med 10 mg, Oral, 2 TIMES DAILY PRN, Starting on 10/01/24 at 0848, Until Wed10/10/24 at 1911, Constipation, Give if no BM after 24 hr after prior interventions. BM expected in 6-8 hours. If BM desired sooner, use next ordered agent. Give concomitantly with any scheduled bowel medications ordered., Routine And lactulose (Chronulac) (0.67 gram/mL) oral liquid 20 gJump to med 20 g, Oral, DAILY PRN, Starting on 10/01/24 at 0848, Until Wed10/10/24 at 1911, Constipation, Give if no BM 24 hr after prior interventions or if BM is desired within 2 hr. Give concomitantly with any scheduled bowel medications ordered, Routine And lactulose (Chronulac) (0.67 gram/mL) oral liquid 20 gJump to med 20 g, Oral, DAILY PRN, Starting on Wed10/01/24 at 0848, Until Wed10/10/24 at 1911, Constipation, Give an additional (2nd) dose of lactulose 2 hr after 1st dose if still no BM. Disregard if 1st dose of lactulose not ordered. Give concomitantly with any scheduled bowel medications ordered. , Routine And magnesium citrate oral liquid 296 mLJump to med 296 mL, Oral, ONCE PRN, 1 dose, Starting on 10/01/24 at 0848, Until Wed10/10/24 at 1911, Constipation, Give if no BM 2 hr after previous interventions. If 2 hr after mag citrate there is still no BM, see order for tap water enema, if placed. Give concomitantly with any scheduled bowel medications ordered., Routine And Tap water enema (CANCELED) Routine, DAILY PRN, Starting on Wed10/01/24 at 0848, Until Specified, Give if no BM in at least 24 hr and all other ordered bowel regimen medications have been unsuccessful. Give concomitantly with any scheduled bowel medications ordered. Group 3: glucose (Glutose) 40% oral geLJump to med 15-30 g of glucose, Buccal, EVERY 15 MIN PRN, Starting on Wed09/27/24 at 1700, Until Wed10/10/24 at 1911, Low blood sugar, ??Oral treatment preferred For Blood Glucose 50 to 70 mg/dL: ?? -??IF ABLE TO DRINK, give 120 mL juice or regular (not diet) soda - IF NPO, give 15 gram glucose 40% oral gel massaged into buccal mucosa - IF UNCONSCIOUS OR UNCOOPERATIVE, give 25 gram dextrose IV - IF NO IV ACCESS, give 1 mg glucagon IM. For Blood Glucose LESS than 50 mg/dL: ?? -??IF ABLE TO DRINK, give 240 mL juice or regular (not diet) soda - IF NPO, give 30 gram glucose 40% oral gel massaged into buccal mucosa - IF UNCONSCIOUS OR UNCOOPERATIVE, give 25 gram dextrose IV - IF NO IV ACCESS, 1 mg glucagon IM. Recheck BG in [...] tube = 37.5 grams.), Routine Or dextrose 50% intravenous solution 25 gJump to med 25 g, Intravenous, EVERY 15 MIN PRN, Starting on Wed09/27/24 at 1700, Until Wed10/10/24 at 1912, Low blood sugar, ??Oral treatment preferred For Blood Glucose 50 to 70 mg/dL: ?? -??IF ABLE TO DRINK, give 120 mL juice or regular (not diet) soda - IF NPO, give 15 gram glucose 40% oral gel massaged into buccal mucosa - IF UNCONSCIOUS OR UNCOOPERATIVE, give 25 gram dextrose IV - IF NO IV ACCESS, give 1 mg glucagon IM. For Blood Glucose LESS than 50 mg/dL: ?? -??IF ABLE TO DRINK, give 240 mL juice or regular (not diet) soda - IF NPO, give 30 gram glucose 40% oral gel massaged into buccal mucosa - IF UNCONSCIOUS OR UNCOOPERATIVE, give 25 gram dextrose IV - IF NO IV ACCESS, 1 mg glucagon IM. Recheck BG in 15 minutes. May repeat juice/soda, gel, dextrose or glucagon once per episode. Notify provider if hypoglycemia does not resolve after two treatments. Providers should consider the following: administering longer-acting treatments for the duration of active insulin or hypoglycemia agent for persistent hypoglycemia and re-evaluating active insulin orders before administering the next dose. Warning Vesicant/Irritant Medication , Routine Or glucagon (Glucagen) (1 mg/mL) injection solution 1 mgJump to med 1 mg, Intramuscular, EVERY 15 MIN PRN, Starting on Wed09/27/24 at 1700, Until Wed10/10/24 at 191, Low blood sugar, ??Oral treatment preferred For Blood Glucose 50 to 70 mg/dL: ?? -??IF ABLE TO DRINK, give 120 mL juice or regular (not diet) soda - IF NPO, give 15 gram glucose 40% oral gel massaged into buccal mucosa - IF UNCONSCIOUS OR UNCOOPERATIVE, give 25 gram dextrose IV - IF NO IV ACCESS, give 1 mg glucagon IM. For Blood Glucose LESS than 50 mg/dL: ?? -??IF ABLE TO DRINK, give 240 mL juice or regular (not diet) soda - IF NPO, give 30 gram glucose 40% oral gel massaged into buccal mucosa - IF UNCONSCIOUS OR UNCOOPERATIVE, give 25 gram dextrose IV - IF NO IV ACCESS, 1 mg glucagon IM. Recheck BG in 15 minutes. May repeat juice/soda, gel, dextrose or glucagon once per episode. Notify provider if hypoglycemia does not resolve after two treatments. Providers should consider the following: administering longer-acting treatments for the duration of active insulin or hypoglycemia agent for persistent hypoglycemia and re-evaluating active insulin orders before administering the next dose., Routine Group 4: oxyCODONE (Roxicodone) tablet 5 mgJump to med 5 mg, Oral, EVERY 4 HOURS PRN, Starting on Wed09/27/24 at 0931, Until Wed10/10/24 at 191, Pain, moderate pain (4-6), For adults, may give in place of other agent(s) ordered for pain (7-10) at patient request. 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
--- OUTSIDE RECORDS SUMMARY | 2024-10-20 12:40 | XMS_ITS | Encounter Summary ---
Author Organization [facility] [place] [address] Care Team Providers Care Mechanical Design Technician Name Role Phone Charles Romero Primary Care Provider + Reason for Visit * Auth/Cert (Routine) Specialty Diagnoses / Procedures Referred By William moses Referred To Contact Diagnoses Vascular graft infection, initial encounter Sepsis [A41.9] T82.7XXA Procedures EMERGENCY IPI Angel Gonsalez MD [facility] [place] [address] [facility] Referral ID Status Reason Start Date Expiration Date Visits Re quested Visits Authorized [id number] 1 1 Encounter Details Date Type Department Care Team (Late st Contact Info) Description 10/04/2024 3:38 PM EST - 10/04/2024 5:32 PM EST Surgery [place] [address] Marko Dickson MD [facility] [place] [address] DEBRIDEMENT SKIN AND SUBCU, LOWER EXTREMITY (WRVU 1.01) Social History Tobacco Use Types Packs/Day Years Used Date Smoking Tobacco: Every Day Cigarettes 1 25 Started: 12/28/1986; Last attempted to quit: 12/28/2011 Smokeless Tobacco: Never Alcohol Use Standard Drinks/Week Comments No 0 (1 standard drink = 0.6 oz pur e alcohol) [facility] Utilities Answer Date Recorded In the [...] were you homeless or living in a chcf (including now)? No 09/27/2024 DH IPV Inpatient [...] Sign Reading Time Taken Comments Blood Pressure 134/75 10/04/2024 5:00 PM EST Pulse 74 10/04/2024 5:00 PM EST Temperature 36.2 ??C (97.2 ??F) 10/04/2024 5:00 PM ES T Respiratory Rate 12 10/04/2024 5:00 PM EST Oxygen Saturation 97% 10/04/2024 5:00 PM EST Inhaled Oxygen Concentration - - [...] Operations/Major Procedures: 09/26/24: Explant of infected LEFT CORK TILE FLOOR LAYER to below-knee popliteal artery PTFE bypass graft [...] 2nd toe amputation who was transferred from [facility] given concern for infected left fem-BK popliteal [...] pericardial patch and PTFE willard over the CORK TILE FLOOR LAYER was unincorporated. - Resection of prior femoral patch and PTFE graft hoods at femoral and below- knee popliteal arteries, and patch angioplasty with harvested left great saphenous vein. - Sartorius flap mobilized to cover the left femoral artery with RYA drain placed in potential space. - Significant [...] present Consultations: Infectious Disease 09/27/24: Geovanna Dixon Jr. is a 49 y.o. [...] this patient. Diabetes Management: 09/27/24: Assessment: Geovanna Dixon Jr. is a 49 [...] juice or regular (not diet) soda 6 Candi Controlss small box of raisins 4 glucose tablets [...] 2 tablespoons of dried fruit. Milk and ya-dxfxb-shcpw yogurt have 15 grams of carbs in a serving. A serving is 1 cup of milk or 3/4 cup (6 oz) of zp-yinwn-yqbak yogurt. Starchy vegetables have 15 grams of carbs in a serving. A serving is ?? cup of mashed potatoes or sweet potato; 1 cup winter squash; ?? of a small baked potato; ?? cup of cooked beans; or ?? cup cooked corn or green peas. Learn how much carbs to eat each day and at each meal. A dietitian or certified midwife can teach you how to keep track [...] was scheduled for a f/u nutrition evaluation. Product Transfer Pumper met pt at bedside. Pt sharedthat his [...] Based on current findings- home (sister & twrattw-oz-cil's home) Consult Recommendations: No other consults recommended [...] Loss: None Karolyn Hudson MD Vascular Surgery, 2903 10/09/24 Important Studies and Lab Data: Labs: [...] 05/29/2024, no significant changes. Procedure Limited - 77043. Doppler - 04859. Color Doppler - 44525. Suboptimal quality. This study is limited because [...] on series 3, image 8 and 641, 842, 317, 632. No other rim-enhancing fluid collection is seen. [...] wedged between the vastus medialis and adductor [place] muscle. This tracks into the popliteal fossa [...] PM Isabela Hayward APRN Infectious Disease at [facility] Arrive at: Home [phone] To view instructions for your video visit, click here, or visit this website: [email or web address] If you have not previously downloaded the [facility] patient portal software, [employer], please do so by clicking one of the links below or searching in your device's lobito store. [email or web address] devices 11/09/2024 1:30 PM Isabela Hayward APRN Infectious Disease at [facility] Arrive at: Canvas Worker Apprentice Area [phone] 11/21/2024 2:15 PM Dayanara Grover MD Endocrinology at [facility] Arrive at: Canvas Worker Apprentice Area 3A [phone] Future Orders Complete By Expires CBC (with Diff) [CIL470 Custom] 10/17/2024 12/11/2024 Process Instructions: INCLUDES: WBC, RBC, Hgb, Hct, Platelets, RBC Indices and Differential Scheduling Instructions: Comments: Questions: OPAT: Order / Recommendation for Post Discharge IV Antibiotic Management [BWO011 CPT(R)] As directed Process Instructions: If no progress note charted, please enter Clinical details in comments. Scheduling Instructions: Comments: - If this order was signed greater than 72 hours prior to [facility] discharge, please call to confirm the accuracy of this order. Please Fax all results to: OPAT Program Infectious Disease Section [facility], [place] [address] FAX: - After hours, please contact the Infectious Disease Physician furniture salesperson at . - Line care instructions - see flush/heparin orders. Facilities may follow organizational policies/practices regarding heparin. - senior living for medication administration/supervisor furnace process and catheter care/maintenance authorized. - CVC/PICC Dressing Change weekly and PRN Please use CHG or Bio Patch RN: Please care for PICC line including dressing changes weekly and prn. Please draw labs every Wednesday and PRN and fax results to OPAT at [phone]. Please draw labs off PICC line. [facility]. Please RN visit for IV ABX teaching and ongoing assessment. Long Term for Medication Administration/Hookup and catheter care/maintenance: - Teach Patient/Caregiver goals/self-monitoring/therapy administration to independence per the Nursing Care Plan. - senior living visit frequency; initial, weekly and 2 PRN [...] Amaya Hernandez MD Referral for Outpatient Antibiotics [TOG4703 CPT(R)] As directed Process Instructions: Scheduling Instructions: Comments: See OPAT orders Questions: Vendor / contact information: [facility] Patient location post discharge: Home Service requested: IV abx Start date: Responsible MD post discharge contact info: PCP Referral to Home Health [REF34 Custom] As directed Process Instructions: If no progress note charted, please enter Clinical details in comments. Scheduling Instructions: Comments: Please evaluate Geovanna Dixon Jr. for admission to Home Health. [address] [place] [address] Phone Number: [phone] (home) Date of : 1975 Inpatient DOCUMENTATION FOR VNA SERVICES (INCLUDING THOSE PATIENTS WITH MEDICARE COVERAGE REQUIRING HOME VNA SERVICES AND/OR HOSPICE SERVICES) PATIENT'S LOCATION: Geovanna Dixon Jr. [address] [place] [address] [phone] (home) Cell: Telephone Information: Pipe Supervisor's Name: Geoavnna In discussion with the attending physician, it is certified that this patient is under their care and that they, or a Nurse Practitioner, Clinical Nurse specialist or Physician Nut Former who is working directly with them, had [...] for managing ADLs. HOME HEALTH CARE AGENCY: [facility] [address] [place] [address] START OF CARE: within 24-48 hours of discharge Patient has Medicare Please note that any additional orders needs or changes will need to be obtained from this patient's PCP: JUSTIN Roberson [address] [facility] [address] . All VNA agencies which cover the area of patient's residence have been reviewed, either verbally or in writing, andpatient/family have chosen the home health care agency noted. Questions: Disciplines Requested: Nursing Physical Therapy Occupational Therapy Recurring Lab Work Interval Expires CBC (with Diff) [[id number] Custom] Once a week until 12/10/2024 12/10/2024 [...] For any problems or questions please call [phone] For issues on weeknights after 5pm and weekends please call [phone] and ask for the Vascular Fellow furniture salesperson. Discharge Medications: Your Medications New Medications Dose Details alteplase 2 mg Recon Soln Commonly known as: Cathflo Instill reconstituted alteplase (Cathflo) 2 mg per instillation (based on volume of lumen). May repeat x1 per occlusion Quantity: 1 each Refills: PRN DAPTOmycin 350 mg injection solution Commonly known as: Cubicin Inject 700 mg into the vein daily for 32 days. EOT 11/10/24 700 mg Quantity: 64 each Refills: 0 heparin flush (porcine) 10 unit/mL Solution Inject 3 mLs into the vein as needed (For Line Patency - See Instructions). FLUSH PROTOCOL WITH MEDICATIONS ([facility]): Before med infusion: flush with NS 10 [...] - See Instructions). FLUSH PROTOCOL WITH MEDICATIONS ([facility]): Before med infusion: flush with NS 10 [...] can get this completed at 3L at [facility] prior to your scheduled appointment. Stop atorvastatin [...] For any problems or questions please call [phone] For issues on weeknights after 5pm and weekends please call [phone] and ask for the Vascular Fellow furniture salesperson. documented in this encounter Discharge Instructions * [...] 2 tablespoons of dried fruit. Milk and ty-lhkly-zfcue yogurt have 15 grams of carbs in a serving. A serving is 1 cup of milk or 3/4 cup (6 oz) of kg-kjyzm-sjlez yogurt. Starchy vegetables have 15 grams of carbs in a serving. A serving is ?? cup of mashed potatoes or sweet potato; 1 cup winter squash; ?? of a small baked potato; ?? cup of cooked beans; or ?? cup cooked corn or green peas. Learn how much carbs to eat each day and at each meal. A dietitian or certified midwife can teach you how to keep track [...] can get this completed at 3L at [facility] prior to your scheduled appointment. Stop atorvastatin [...] For any problems or questions please call [phone] For issues on weeknights after 5pm and weekends please call [phone] and ask for the Vascular Fellow furniture salesperson. documented in this encounter Medications at Time [...] - See Instructions). FLUSH PROTOCOL WITH MEDICATIONS ([facility]): Before med infusion: flush with NS 10 [...] - See Instructions). FLUSH PROTOCOL WITH MEDICATIONS ([facility]): Before med infusion: flush with NS 10 [...] type 2 diabetes mellitus 180 tablet 07/21/2024 insulin needles, disposable, 32 gauge x [...] type 2 diabetes mellitus 2 mL 06/02/2024 empagliflozin (Jardiance) 25 mg tablet Take 1 tablet by mouth daily. 30 tablet 06/02/2024 aspirin EC 81 mg EC (DR) tablet Take 1 tablet by mouth daily. 30 tablet 3 06/03/2024 omeprazole 20 mg Tablet,Rapid Dissolve, Take 40 mg by mouth Daily at [...] to contact. Reviewed roles and responsibilities of VACUUM SPINDLE SANDER and infusion vendor. Contact information for ID and Vascular team/clinic, VACUUM SPINDLE SANDER and infusion vendor given to pt. Discussed f/u appointments in ID 5C clinic, telephone and tele health. Pt verbalized understanding. All questions answered. IV & PO ABX Medications: Daptomycin 700mg IV daily Start/anticipated end date: 10/10/24-11/10/24 VACUUM SPINDLE SANDER: [place] Infusion vendor: [facility] Care IV Access: 4 Fr. single lumen Bard [...] graft associated infection. A1C updated and 9.7%,down from.6% this summer. Since his discharge he has [...] 2 tablespoons of dried fruit. Milk and fy-cfwcr-fjtmn yogurt have 15 grams of carbs in a serving. A serving is 1 cup of milk or 3/4 cup (6 oz) of so-gsbmk-upria yogurt. Starchy vegetables have 15 grams of carbs in a serving. A serving is ?? cup of mashed potatoes or sweet potato; 1 cup winter squash; ?? of a small baked potato; ?? cup of cooked beans; or ?? cup cooked corn or green peas. Learn how much carbs to eat each day and at each meal. A dietitian or certified midwife can teach you how to keep track [...] inpatient unit including nursing and primary team. IR * Fabián Burrows OT - 10/09/2024 3:33 PM EST Occupational Therapy Note Document Type: contact Total Minutes, Occupational Therapy: 8 Reason: Met with patient this afternoon, reports that he is independent in room with ADLs and has no concerns related to OT at this time. OT to complete orders. Pager: [phone] Fabián Burrows OT 10/09/2024 Occupational Therapy Rehabilitation [...] Loss: None Karolyn Hudson MD Vascular Surgery, 0639 10/09/24 * Terry Jimenez, PT - 10/09/2024 12:02 PM EST Physical Therapy Visit #2 Patient profile: Geovanna Dixon Jr. is a 49 y.o. male with a history of HTN, HLD, NSTEMI, CAD s/p CABG (12/2011), DM,obesity, PAD s/p L iliofem endart and L fem-BK pop bypass and L 2nd toe amputation who was transferred from [facility], 09/26/24 given concern for infected left fem-BK popliteal PTFE bypass. He is now s/p an explant of an infected left femoral-below knee popliteal artery bypass graft (09/26), I/D groin abscess (09/27), L GSV harvest, vein patch angioplasty, L CORK TILE FLOOR LAYER and BK pop w/ sartorius flap L fem, I/D, 09/29 L sartorius flap revision, vac change. 10/03/24 NPO at [facility] for OR wound exploration. Wound [...] He mentions he'll stay with sister and fhmadaz-wk-uus upon DC. Pt resting in bed upon [...] up with R and down with L, ivxj-el-rihr. Balance: Sitting: NORMAL- EOB unsupported good postural [...] to change wound VAC dressings. Assessment: Geovanna Dixon Jr. is hospital day [...] Based on current findings- home (sister & kebrzxu-xn-aru's home) Consult Recommendations: No other consults recommended [...] 11:40-11:55 Total Time: 15 (TE-F) minutes TERRY JIMENEZ, PT Pager: [phone] Physical Therapy Inpatient Rehabilitation Department * María Carranza, COMBAT INFORMATION CENTER OFFICER - 10/09/2024 11:14 AM EST Images from the original note were not included. Vascular Surgery Progress Note Geovanna Dixon Jr. is a 49 y.o. 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 He presented to [facility] on 09/26 and went to the OR [...] Daily heparin (porcine) 5,000 Units Subcutaneous Q8H [facility] lidocaine 1 patch Transdermal Q24H Operations this [...] and PT signals present Labs: Recent Labs 10/08/24 0008 10/07/24 0006 10/06/24 0003 WBC 10.35* 11.27* 12.26* HGB 10.2* 10.1* 10.1* HCT 31.7* 30.9* 30.9* PLATELET 778* 789* 772* Recent Labs 10/08/24 0008 10/07/24 0006 10/06/24 0003 NA 135 139 139 K 3.8 4.0 4.3 CL 101 104 103 CO2 25 25 22 BUN 19 18 17 CREATININE 0.60* 0.61* 0.85 PHOS 3.4 4.2 4.3 CALCIUM 9.2 9.0 8.8 Microbiology: Microbiology Results (last 7 days) Procedure Component Value - Date/Time Blood culture [[id number]] (Abnormal) (Susceptibility) Collected: 09/26/24 1422 Lab Status: Edited Result - FINAL Specimen: Blood, Venous Updated: 10/07/24 0740 Blood Culture Methicillin Resistant Staphylococcus aureus Comment: detected by PCR Isolate saved. If future testing is required, contact the Microbiology Fish Cutting Machine Operator. Gram Stain Aerobic Bottle: Gram positive cocci in clusters Susceptibility Methicillin Resistant Staphylococcus aureus MINIMUM INHIBITORY CONCENTRATION VITEK 2 METHOD Clindamycin Resistant Daptomycin Susceptible Gentamicin Susceptible [1] Linezolid Susceptible Oxacillin Resistant Trimethoprim/Sulfa Susceptible Vancomycin Susceptible [1] Gentamicin is not appropriate for monotherapy for gram-positive infections. AFB culture [[id number]] Collected: 09/27/24 1654 Lab Status: Preliminary result Specimen: Tissue from Thigh, Left Updated: 10/05/24 1201 Acid Fast Bacilli Culture No acid fast bacilli isolated at 1 week. Acid Fast Stain No acid fast bacilli seen Blood culture [[id number]] Collected: 09/29/242123 Lab Status: Final result Specimen: Blood, Venous Updated: 10/04/24 2301 Blood Culture No growth at 120 hours Blood culture [[id number]] Collected: 09/29/242123 Lab Status: Final result Specimen: Blood, Venous Updated: 10/04/24 2301 Blood Culture No growth at 120 hours AFB culture [[id number]] Collected: 09/26/24 1702 Lab Status: Preliminary result Specimen: Abscess from Knee, Left Updated: 10/04/24 1201 Acid Fast Bacilli Culture No acid fast bacilli isolated at 1 week. Acid Fast Stain No acid fast bacilli seen Blood culture [[id number]] Collected: 09/28/24 1749 Lab Status: Final result [...] 2nd toe amputation who was transferred from [facility] given concern for infected left fem-BK popliteal PTFE bypass. He is now s/p an explantof an infected left femoral-below knee popliteal artery bypass graft (09/26), I/D groin abscess (), L GSV harvest, vein patch angioplasty, L CORK TILE FLOOR LAYER and BK pop w/ sartorius flap L fem, I/D, 09/29 L sartorius flap revision, vac change. 10/09/24: Progressing well post surgically. Will pull medial thigh drain today, retain sartorius flap drain along with wound vac x 3 sponges ([facility] has approved for home vac) and WTD [...] PRN PICC dressing change completed as per [facility] protocol. Positive pressure displacement connector (Max Plus) [...] 2nd toe amputation who was transferred from [facility] given concern for infected left fem-BK popliteal [...] smoking 1 week ago. He presented to [facility] on 09/26 and went to the OR [...] PT signals present Labs: Recent Labs 10/08/248 10/07/24 0006 10/06/24 0003 WBC 10.35* 11.27* 12.26* HGB [...] Procedure Component Value - Date/Time Blood culture [[id number]] (Abnormal) (Susceptibility) Collected: 09/26/24 1422 Lab Status: Edited Result - FINAL Specimen: Blood, Venous Updated: 10/07/24 0740 Blood Culture Methicillin Resistant Staphylococcus aureus Comment: detected by PCR Isolate saved. If future testing is required, contact the Microbiology Fish Cutting Machine Operator. Gram Stain Aerobic Bottle: Gram positive cocci in clusters Susceptibility Methicillin Resistant Staphylococcus aureus MINIMUM INHIBITORY CONCENTRATION VITEK 2 METHOD Clindamycin Resistant Daptomycin Susceptible Gentamicin Susceptible [1] Linezolid Susceptible Oxacillin Resistant Trimethoprim/Sulfa Susceptible Vancomycin Susceptible [1] Gentamicin is not appropriate for monotherapy for gram-positive infections. AFB culture [[id number]] Collected: 09/27/24 165 Lab Status: Preliminary result Specimen: Tissue from Thigh, Left Updated: 10/05/24 1201 Acid Fast Bacilli Culture No acid fast bacilli isolated at 1 week. Acid Fast Stain No acid fast bacilli seen Blood culture [[id number]] Collected: 09/29/242123 Lab Status: Final result Specimen: Blood, Venous Updated: 10/04/24 2301 Blood Culture No growth at 120 hours Blood culture [[id number]] Collected: 09/29/242123 Lab Status: Final result Specimen: Blood, Venous Updated: 10/04/24 2301 Blood Culture No growth at 120 hours AFB culture [[id number]] Collected: 09/26/24 1702 Lab Status: Preliminary result Specimen: Abscess from Knee, Left Updated: 10/04/24 1201 Acid Fast Bacilli Culture No acid fast bacilli isolated at 1 week. Acid Fast Stain No acid fast bacilli seen Blood culture [[id number]] Collected: 09/28/24 1749 Lab Status: Final result Specimen: Blood, Venous Updated: 10/03/24 1901 Blood Culture No growth at 120 hours Blood culture [[id number]] (Abnormal) Collected: 09/27/24 2133 Lab Status: Final result Specimen: Blood, Venous Updated: 10/02/24 0804 Blood Culture Methicillin Resistant Staphylococcus aureus Comment: Susceptibilities previously reported. Gram Stain Aerobic Bottle: Gram positive cocci in clusters Tissue Culture, Aerobic & Anaerobic [[id number]] Collected: 09/27/241653 Lab Status: Final result Specimen: Tissue from Thigh, Left Updated: 10/01/24 1554 Narrative: The following orders were created for panel order Tissue Culture, Aerobic & Anaerobic. Procedure Abnormality Status --------- ------ Tissue Culture, Aerobic ...[[id number]] Anaerobic Culture[[id number]] Final result Please view results for these tests on the individual orders. Anaerobic Culture [[id number]] Collected: 09/27/241653 Lab Status: Final result Specimen: Tissue from Thigh, Left Updated: 10/01/24 1554 Anaerobic Culture No anaerobic organisms isolated Tissue Culture, Aerobic Only [[id number]] (Abnormal) (Susceptibility) Collected: 09/27/241653 Lab Status: Final [...] 2nd toe amputation who was transferred from [facility] given concern for infected left fem-BK popliteal PTFE bypass. He is now s/p an explantof an infected left femoral-below knee popliteal artery bypass graft (09/26), I/D groin abscess (), L GSV harvest, vein patch angioplasty, L CORK TILE FLOOR LAYER and BK pop w/ sartorius flap L [...] Antiplatelet: ASA 81mg daily Vibha Benson APRN 10/08/2024 Pager: [phone] * Vibha Benson APRN - 10/07/2024 8:52 AM EST Images from the original note were not included. Vascular Surgery Progress Note Geovanna Dixon Jr. is a 49 y.o. 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 He presented to [facility] on 09/26 and went to the OR [...] Procedure Component Value - Date/Time Blood culture [[id number]] (Abnormal) (Susceptibility) Collected: 09/26/24 1422 Lab Status: Edited Result - FINAL Specimen: Blood, Venous Updated: 10/07/24 0740 Blood Culture Methicillin Resistant Staphylococcus aureus Comment: detected by PCR Isolate saved. If future testing is required, contact the Microbiology Fish Cutting Machine Operator. Gram Stain Aerobic Bottle: Gram positive cocci in clusters Susceptibility Methicillin Resistant Staphylococcus aureus MINIMUM INHIBITORY CONCENTRATION VITEK 2 METHOD Clindamycin Resistant Daptomycin Susceptible Gentamicin Susceptible [1] Linezolid Susceptible Oxacillin Resistant Trimethoprim/Sulfa Susceptible Vancomycin Susceptible [1] Gentamicin is not appropriate for monotherapy for gram-positive infections. AFB culture [[id number]] Collected: 09/27/24 165 Lab Status: Preliminary result Specimen: Tissue from Thigh, Left Updated: 10/05/24 1201 Acid Fast Bacilli Culture No acid fast bacilli isolated at 1 week. Acid Fast Stain No acid fast bacilli seen Blood culture [[id number]] Collected: 09/29/242123 Lab Status: Final result Specimen: Blood, Venous Updated: 10/04/24 2301 Blood Culture No growth at 120 hours Blood culture [[id number]] Collected: 09/29/242123 Lab Status: Final result Specimen: Blood, Venous Updated: 10/04/24 2301 Blood Culture No growth at 120 hours AFB culture [[id number]] Collected: 09/26/24 1702 Lab Status: Preliminary result Specimen: Abscess from Knee, Left Updated: 10/04/24 1201 Acid Fast Bacilli Culture No acid fast bacilli isolated at 1 week. Acid Fast Stain No acid fast bacilli seen Blood culture [[id number]] Collected: 09/28/24 1749 Lab Status: Final result Specimen: Blood, Venous Updated: 10/03/24 1901 Blood Culture No growth at 120 hours Blood culture [[id number]] (Abnormal) Collected: 09/27/24 2133 Lab Status: Final result Specimen: Blood, Venous Updated: 10/02/24 0804 Blood Culture Methicillin Resistant Staphylococcus aureus Comment: Susceptibilities previously reported. Gram Stain Aerobic Bottle: Gram positive cocci in clusters Tissue Culture, Aerobic & Anaerobic [[id number]] Collected: 09/27/24 165 Lab Status: Final result Specimen: Tissue from Thigh, Left Updated: 10/01/24 1554 Narrative: The following orders were created for panel order Tissue Culture, Aerobic & Anaerobic. Procedure Abnormality Status --------- ------ Tissue Culture, Aerobic ...[[id number]] Anaerobic Culture[[id number]] Final result Please view results for these tests on the individual orders. Anaerobic Culture [[id number]] Collected: 09/27/24 165 Lab Status: Final result Specimen: Tissue from Thigh, Left Updated: 10/01/24 1554 Anaerobic Culture No anaerobic organisms isolated Tissue Culture, Aerobic Only [[id number]] (Abnormal) (Susceptibility) Collected: 09/27/24 165 Lab Status: [...] is considered susceptible to doxycycline. Blood culture [[id number]] (Abnormal) Collected: 09/26/24 1845 Lab Status: Final result Specimen: Blood, Venous Updated: 10/01/24 0658 Blood Culture Methicillin Resistant Staphylococcus aureus Comment: isolated. Susceptibilities previously reported. Gram Stain Aerobic Bottle: Gram positive cocci in clusters Abscess/Wound Aspirate Culture, Aerobic & Anaerobic [[id number]] (Abnormal) Collected: 09/26/241649 Lab Status: Final result Specimen: Abscess from Groin, Left Updated: 09/30/24 155 Narrative: The following orders were created for panel order Abscess/Wound Aspirate Culture, Aerobic & Anaerobic. Procedure Abnormality Status --------- ------ Abscess/Wound Aspirate C...[[id number]] Abnormal Final result Anaerobic Culture[[id number]] Final result Please view results for these tests on the individual orders. Anaerobic Culture [[id number]] Collected: 09/26/24 165 Lab Status: Final result Specimen: Abscess from Groin, Left Updated: 09/30/24 155 Anaerobic Culture No anaerobic organisms isolated Abscess/Wound Aspirate Culture, Aerobic & Anaerobic [[id number]] (Abnormal) Collected: 09/26/24 1702 Lab Status: Final result Specimen: Abscess from Knee, Left Updated: 09/30/24 1551 Narrative: The following orders were created for panel order Abscess/Wound Aspirate Culture, Aerobic & Anaerobic. Procedure Abnormality Status --------- ------ Abscess/Wound Aspirate C...[[id number]] Abnormal Final result Anaerobic Culture[[id number]] Final result Please view results for these tests on the individual orders. Anaerobic Culture [[id number]] Collected: 09/26/24 1702 Lab Status: Final result Specimen: Abscess from Knee, Left Updated: 09/30/24 1551 Anaerobic Culture No anaerobic organisms isolated Sonicated Tissue/Implant Culture [[id number]] (Abnormal) Collected: 09/26/24 1716 Lab Status: Final result Specimen: Vascular Graft from Leg, Left Updated: 09/30/24 1349 Sonicated Tissue/Implant Culture Methicillin Resistant Staphylococcus aureus Comment: isolated from broth culture. Susceptibilities previously reported. Abscess/Wound Aspirate Culture, Aerobic Only [[id number]] (Abnormal) (Susceptibility) Collected: 09/26/24 1702 Lab Status: [...] to doxycycline. Abscess/Wound Aspirate Culture, Aerobic Only [[id number]] (Abnormal) (Susceptibility) Collected: 09/26/24 1650 Lab Status: [...] Studies: - None Assessment & Plan: Geovanna Llanos Zack JrFlorencio is a 49 y.o. male with a history of HTN, HLD, NSTEMI, CAD s/p CABG (12/2011), DM,obesity, PAD s/p L iliofem endart and L fem-BK pop bypass and L 2nd toe amputation who was transferred from [facility] given concern for infected left fem-BK popliteal PTFE bypass. He is now s/p an explantof an infected left femoral-below knee popliteal artery bypass graft (09/26), I/D groin abscess (), L GSV harvest, vein patch angioplasty, L CORK TILE FLOOR LAYER and BK pop w/ sartorius flap L [...] 81mg daily Vibha Benson APRN 10/07/2024 Pager: [phone] * Karina-Jessica Mcrae, PT - 10/06/2024 3:21 PM EST 10/06/24 1722 Evaluation & Treatment Document Type contact Comment, [...] Iniguez MD General Surgery 10/06/2024 11:06 AM IR * Benjamin Iniguez MD - 10/06/2024 11:03 AM EST Images from the original note were not included. Vascular Surgery Progress Note Geovanna Dixon Jr. is a 49 y.o. 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 He presented to [facility] on 09/26 and went to the OR [...] signals present Labs: Recent Labs 10/06/24 0003 10/04/240 10/04/24 0008 WBC 12.26* 12.73* 12.58* HGB 10.1* 9.8* 9.4* HCT 30.9* 30.6* 28.8* PLATELET 772* 709* 670* Recent Labs 10/06/24 0003 10/04/24 2350 10/04/24 0008 NA 139 140 138 K 4.3 3.9 4.4 CL 103 105 105 CO2 24 BUN 17 13 19 CREATININE 0.85 0.55* 0.56* PHOS 4.3 4.2 3.7 CALCIUM 8.8 9.0 8.7 Microbiology: Microbiology Results (last 7 days) Procedure Component Value - Date/Time AFB culture [[id number]] Collected: 09/27/241653 Lab Status: Preliminary result Specimen: Tissue from Thigh, Left Updated: 10/05/24 1201 Acid Fast Bacilli Culture No acid fast bacilli isolated at 1 week. Acid Fast Stain No acid fast bacilli seen Blood culture [[id number]] Collected: 09/29/242123 Lab Status: Final result Specimen: Blood, Venous Updated: 10/04/24 2301 Blood Culture No growth at 120 hours Blood culture [[id number]] Collected: 09/29/242123 Lab Status: Final result Specimen: Blood, Venous Updated: 10/04/24 2301 Blood Culture No growth at 120 hours AFB culture [[id number]] Collected: 09/26/24 170 Lab Status: Preliminary result Specimen: Abscess from Knee, Left Updated: 10/04/24 1201 Acid Fast Bacilli Culture No acid fast bacilli isolated at 1 week. Acid Fast Stain No acid fast bacilli seen Blood culture [[id number]] Collected: 09/28/24 1749 Lab Status: Final result Specimen: Blood, Venous Updated: 10/03/24 1901 Blood Culture No growth at 120 hours Blood culture [[id number]] (Abnormal) Collected: 09/27/242132 Lab Status: Final result Specimen: Blood, Venous Updated: 10/02/24 0804 Blood Culture Methicillin Resistant Staphylococcus aureus Comment: Susceptibilities previously reported. Gram Stain Aerobic Bottle: Gram positive cocci in clusters Tissue Culture, Aerobic & Anaerobic [[id number]] Collected: 09/27/241653 Lab Status: Final result Specimen: Tissue from Thigh, Left Updated: 10/01/24 1554 Narrative: The following orders were created for panel order Tissue Culture, Aerobic & Anaerobic. Procedure Abnormality Status --------- ------ Tissue Culture, Aerobic ...[[id number]] Anaerobic Culture[[id number]] Final result Please view results for these tests on the individual orders. Anaerobic Culture [[id number]] Collected: 09/27/241653 Lab Status: Final result Specimen: Tissue from Thigh, Left Updated: 10/01/24 1554 Anaerobic Culture No anaerobic organisms isolated Tissue Culture, Aerobic Only [[id number]] (Abnormal) (Susceptibility) Collected: 09/27/24 1654 Lab Status: [...] is considered susceptible to doxycycline. Blood culture [[id number]] (Abnormal) (Susceptibility) Collected: 09/26/24 1422 Lab Status: Edited Specimen: Blood, Venous Updated: 10/01/24 0658 Blood Culture Methicillin Resistant Staphylococcus aureus Comment: detected by PCR Isolate saved. If future testing is required, contact the Microbiology Fish Cutting Machine Operator. Gram Stain Aerobic Bottle: Gram positive cocci in clusters Susceptibility Methicillin Resistant Staphylococcus aureus VITEK 2 METHOD Clindamycin Resistant Gentamicin Susceptible [1] Linezolid Susceptible Oxacillin Resistant Trimethoprim/Sulfa Susceptible Vancomycin Susceptible [1] Gentamicin is not appropriate for monotherapy for gram-positive infections. Blood culture [[id number]] (Abnormal) Collected: 09/26/24 1845 Lab Status: Final result Specimen: Blood, Venous Updated: 10/01/24 0658 Blood Culture Methicillin Resistant Staphylococcus aureus Comment: isolated. Susceptibilities previously reported. Gram Stain Aerobic Bottle: Gram positive cocci in clusters Abscess/Wound Aspirate Culture, Aerobic & Anaerobic [[id number]] (Abnormal) Collected: 09/26/24 165 Lab Status: Final result Specimen: Abscess from Groin, Left Updated: 09/30/24 1551 Narrative: The following orders were created for panel order Abscess/Wound Aspirate Culture, Aerobic & Anaerobic. Procedure Abnormality Status --------- ------ Abscess/Wound Aspirate C...[[id number]] Abnormal Final result Anaerobic Culture[[id number]] Final result Please view results for these tests on the individual orders. Anaerobic Culture [[id number]] Collected: 09/26/24 165 Lab Status: Final result Specimen: Abscess from Groin, Left Updated: 09/30/24 1551 Anaerobic Culture No anaerobic organisms isolated Abscess/Wound Aspirate Culture, Aerobic & Anaerobic [[id number]] (Abnormal) Collected: 09/26/24 1702 Lab Status: Final result Specimen: Abscess from Knee, Left Updated: 09/30/24 1551 Narrative: The following orders were created for panel order Abscess/Wound Aspirate Culture, Aerobic & Anaerobic. Procedure Abnormality Status --------- ------ Abscess/Wound Aspirate C...[[id number]] Abnormal Final result Anaerobic Culture[[id number]] Final result Please view results for these tests on the individual orders. Anaerobic Culture [[id number]] Collected: 09/26/24 1702 Lab Status: Final result Specimen: Abscess from Knee, Left Updated: 09/30/24 1551 Anaerobic Culture No anaerobic organisms isolated Sonicated Tissue/Implant Culture [[id number]] (Abnormal) Collected: 09/26/24 1716 Lab Status: Final result Specimen: Vascular Graft from Leg, Left Updated: 09/30/24 1349 Sonicated Tissue/Implant Culture Methicillin Resistant Staphylococcus aureus Comment: isolated from broth culture. Susceptibilities previously reported. Abscess/Wound Aspirate Culture, Aerobic Only [[id number]] (Abnormal) (Susceptibility) Collected: 09/26/24 1702 Lab Status: [...] to doxycycline. Abscess/Wound Aspirate Culture, Aerobic Only [[id number]] (Abnormal) (Susceptibility) Collected: 09/26/24 1650 Lab Status: [...] 2nd toe amputation who was transferred from [facility] given concern for infected left fem-BK popliteal PTFE bypass. He is now s/p an explantof an infected left femoral-below knee popliteal artery bypass graft (09/26), I/D groin abscess (), L GSV harvest, vein patch angioplasty, L CORK TILE FLOOR LAYER and BK pop w/ sartorius flap L [...] 81mg daily Benjamin Iniguez MD 10/06/2024 Pager: [phone] * Benjamin Iniguez MD - 10/05/2024 7:42 AM EST Images from the original note were not included. Vascular Surgery Progress Note Geovanna Dixon Jr. is a 49 y.o. 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 He presented to [facility] on 09/26 and went to the OR [...] Daily heparin (porcine) 5,000 Units Subcutaneous Q8H [facility] lidocaine 1 patch Transdermal Q24H Operations this [...] and PT signals present Labs: Recent Labs 10/04/24234910/04/24710/03/24 0027 WBC 12.73* 12.58* 15.33* HGB 9.8* 9.4* 10.4* HCT 30.6* 28.8* 31.2* PLATELET 709* 670* 693* Recent Labs 10/04/24234910/04/248 10/03/24 0027 NA 140 138 136 K 3.9 4.4 4.1 CL 105 105 103 CO2 20* BUN 13 19 15 CREATININE 0.55* 0.56* 0.51* PHOS 4.2 3.7 3.5 CALCIUM 9.0 8.7 8.4* Microbiology: Microbiology Results (last 7 days) Procedure Component Value - Date/Time Blood culture [[id number]] Collected: 09/29/242123 Lab Status: Final result Specimen: Blood, Venous Updated: 10/04/24 230 Blood Culture No growth at 120 hours Blood culture [[id number]] Collected: 09/29/242123 Lab Status: Final result Specimen: Blood, Venous Updated: 10/04/24 230 Blood Culture No growth at 120 hours AFB culture [[id number]] Collected: 09/26/24 1702 Lab Status: Preliminary result Specimen: Abscess from Knee, Left Updated: 10/04/24 1201 Acid Fast Bacilli Culture No acid fast bacilli isolated at 1 week. Acid Fast Stain No acid fast bacilli seen Blood culture [[id number]] Collected: 09/28/24 1749 Lab Status: Final result Specimen: Blood, Venous Updated: 10/03/24 1901 Blood Culture No growth at 120 hours Blood culture [[id number]] (Abnormal) Collected: 09/27/242132 Lab Status: Final result Specimen: Blood, Venous Updated: 10/02/24 0804 Blood Culture Methicillin Resistant Staphylococcus aureus Comment: Susceptibilities previously reported. Gram Stain Aerobic Bottle: Gram positive cocci in clusters Tissue Culture, Aerobic & Anaerobic [[id number]] Collected: 09/27/241653 Lab Status: Final result Specimen: Tissue from Thigh, Left Updated: 10/01/24 1554 Narrative: The following orders were created for panel order Tissue Culture, Aerobic & Anaerobic. Procedure Abnormality Status --------- ------ Tissue Culture, Aerobic ...[[id number]] Anaerobic Culture[[id number]] Final result Please view results for these tests on the individual orders. Anaerobic Culture [[id number]] Collected: 09/27/241653 Lab Status: Final result Specimen: Tissue from Thigh, Left Updated: 10/01/24 1554 Anaerobic Culture No anaerobic organisms isolated Tissue Culture, Aerobic Only [[id number]] (Abnormal) (Susceptibility) Collected: 09/27/241653 Lab Status: Final [...] is considered susceptible to doxycycline. Blood culture [[id number]] (Abnormal) (Susceptibility) Collected: 09/26/24 1422 Lab Status: Final result Specimen: Blood, Venous Updated: 10/01/24 0658 Blood Culture Methicillin Resistant Staphylococcus aureus Comment: detected by PCR Isolate saved. If future testing is required, contact the Microbiology Fish Cutting Machine Operator. Gram Stain Aerobic Bottle: Gram positive cocci in clusters Susceptibility Methicillin Resistant Staphylococcus aureus VITEK 2 METHOD Clindamycin Resistant Gentamicin Susceptible [1] Linezolid Susceptible Oxacillin Resistant Trimethoprim/Sulfa Susceptible Vancomycin Susceptible [1] Gentamicin is not appropriate for monotherapy for gram-positive infections. Blood culture [[id number]] (Abnormal) Collected: 09/26/24 1845 Lab Status: Final result Specimen: Blood, Venous Updated: 10/01/24 0658 Blood Culture Methicillin Resistant Staphylococcus aureus Comment: isolated. Susceptibilities previously reported. Gram Stain Aerobic Bottle: Gram positive cocci in clusters Abscess/Wound Aspirate Culture, Aerobic & Anaerobic [[id number]] (Abnormal) Collected: 09/26/24 165 Lab Status: Final result Specimen: Abscess from Groin, Left Updated: 09/30/24 1551 Narrative: The following orders were created for panel order Abscess/Wound Aspirate Culture, Aerobic & Anaerobic. Procedure Abnormality Status --------- ------ Abscess/Wound Aspirate C...[[id number]] Abnormal Final result Anaerobic Culture[[id number]] Final result Please view results for these tests on the individual orders. Anaerobic Culture [[id number]] Collected: 09/26/241649 Lab Status: Final result Specimen: Abscess from Groin, Left Updated: 09/30/24 1551 Anaerobic Culture No anaerobic organisms isolated Abscess/Wound Aspirate Culture, Aerobic & Anaerobic [[id number]] (Abnormal) Collected: 09/26/24 170 Lab Status: Final result Specimen: Abscess from Knee, Left Updated: 09/30/24 1551 Narrative: The following orders were created for panel order Abscess/Wound Aspirate Culture, Aerobic & Anaerobic. Procedure Abnormality Status --------- ------ Abscess/Wound Aspirate C...[[id number]] Abnormal Final result Anaerobic Culture[[id number]] Final result Please view results for these tests on the individual orders. Anaerobic Culture [[id number]] Collected: 09/26/24 170 Lab Status: Final result Specimen: Abscess from Knee, Left Updated: 09/30/24 1551 Anaerobic Culture No anaerobic organisms isolated Sonicated Tissue/Implant Culture [[id number]] (Abnormal) Collected: 09/26/24 1716 Lab Status: Final result Specimen: Vascular Graft from Leg, Left Updated: 09/30/24 1349 Sonicated Tissue/Implant Culture Methicillin Resistant Staphylococcus aureus Comment: isolated from broth culture. Susceptibilities previously reported. Abscess/Wound Aspirate Culture, Aerobic Only [[id number]] (Abnormal) (Susceptibility) Collected: 09/26/24 1702 Lab Status: [...] to doxycycline. Abscess/Wound Aspirate Culture, Aerobic Only [[id number]] (Abnormal) (Susceptibility) Collected: 09/26/241649 Lab Status: Final result Specimen: [...] is considered susceptible to doxycycline. AFB culture [[id number]] Collected: 09/27/241653 Lab Status: Preliminary result Specimen: Tissue from Thigh, Left Updated: 09/29/24 1201 Acid Fast Bacilli Culture No acid fast bacilli isolated to date. Acid Fast Stain No acid fast bacilli seen Fungus culture [[id number]] Collected: 09/27/241653 Lab Status: Preliminary result Specimen: [...] 2nd toe amputation who was transferred from [facility] given concern for infected left fem-BK popliteal PTFE bypass. He is now s/p an explantof an infected left femoral-below knee popliteal artery bypass graft (09/26), I/D groin abscess (), L GSV harvest, vein patch angioplasty, L CORK TILE FLOOR LAYER and BK pop w/ sartorius flap L [...] 81mg daily Benjamin Iniguez MD 10/05/2024 Pager: [phone] Associated attestation - Hayley Torres MD - [...] microbiology, laboratory, imaging/radiology/diagnostics. Laboratory: Recent Labs 10/02/24 00410/01/2420109/29/24 2352 WBC 10.93* 10.15* 9.54* HGB 9.6* [...] aspirate- MRSA Antimicrobials: Vancomycin- Imaging/diagnostics: CT lower htfayfdpy47/20 IMPRESSION: 1. Interval explant of LEFT femoral [...] valve. No significant valvular regurgitation. Impression: Geovanna Elham Dixon Jr. is a 49-year-old male who underwent a left lower extremity hhqzlwa-nb-zmwfv-kneepopliteal artery bypass on August 01, 2024, and [...] any questions or concerns. Please page ID Green team (pager [phone]) with questions or concerns. Lynne Leavitt MD Fellow, Infectious Disease Pager: [phone] Epic Chat 10/02/2024 This note was created using Clone) voice recognition software. Associated attestation - Amaya [...] Procedure Component Value - Date/Time Blood culture [[id number]] Collected: 09/29/242123 Lab Status: Final result Specimen: Blood, Venous Updated: 10/04/24 2301 Blood Culture No growth at 120 hours Blood culture [[id number]] Collected: 09/29/242123 Lab Status: Final result Specimen: Blood, Venous Updated: 10/04/24 2301 Blood Culture No growth at 120 hours AFB culture [[id number]] Collected: 09/26/24 170 Lab Status: Preliminary result Specimen: Abscess from Knee, Left Updated: 10/04/24 120 Acid Fast Bacilli Culture No acid fast bacilli isolated at 1 week. Acid Fast Stain No acid fast bacilli seen Blood culture [[id number]] Collected: 09/28/24 1749 Lab Status: Final result Specimen: Blood, Venous Updated: 10/03/24 1901 Blood Culture No growth at 120 hours Blood culture [[id number]] (Abnormal) Collected: 09/27/242132 Lab Status: Final result Specimen: Blood, Venous Updated: 10/02/24 0804 Blood Culture Methicillin Resistant Staphylococcus aureus Comment: Susceptibilities previously reported. Gram Stain Aerobic Bottle: Gram positive cocci in clusters Tissue Culture, Aerobic & Anaerobic [[id number]] Collected: 09/27/241653 Lab Status: Final result Specimen: Tissue from Thigh, Left Updated: 10/01/24 155 Narrative: The following orders were created for panel order Tissue Culture, Aerobic & Anaerobic. Procedure Abnormality Status --------- ------ Tissue Culture, Aerobic ...[[id number]] Anaerobic Culture[[id number]] Final result Please view results for these tests on the individual orders. Anaerobic Culture [[id number]] Collected: 09/27/241653 Lab Status: Final result Specimen: Tissue from Thigh, Left Updated: 10/01/24 155 Anaerobic Culture No anaerobic organisms isolated Tissue Culture, Aerobic Only [[id number]] (Abnormal) (Susceptibility) Collected: 11/20/24 1654 Lab Status: Final result Specimen: Tissue [...] is considered susceptible to doxycycline. Blood culture [[id number]] (Abnormal) (Susceptibility) Collected: 09/26/24 1422 Lab Status: Final result Specimen: Blood, Venous Updated: 10/01/24 0658 Blood Culture Methicillin Resistant Staphylococcus aureus Comment: detected by PCR Isolate saved. If future testing is required, contact the Microbiology Fish Cutting Machine Operator. Gram Stain Aerobic Bottle: Gram positive cocci in clusters Susceptibility Methicillin Resistant Staphylococcus aureus VITEK 2 METHOD Clindamycin >=8.0 ug/ml Resistant Gentamicin <=0.5 ug/ml Susceptible [1] Linezolid 2.0 ug/ml Susceptible Oxacillin >=4.0 ug/ml Resistant Trimethoprim/Sulfa <=10.0 ug/ml Susceptible Vancomycin 1.0 ug/ml Susceptible [1] Gentamicin is not appropriate for monotherapy for gram-positive infections. Blood culture [[id number]] (Abnormal) Collected: 09/26/24 1845 Lab Status: Final result Specimen: Blood, Venous Updated: 10/01/24 0658 Blood Culture Methicillin Resistant Staphylococcus aureus Comment: isolated. Susceptibilities previously reported. Gram Stain Aerobic Bottle: Gram positive cocci in clusters Abscess/Wound Aspirate Culture, Aerobic & Anaerobic [[id number]] (Abnormal) Collected: 09/26/24 1650 Lab Status: Final result Specimen: Abscess from Groin, Left Updated: 09/30/24 1551 Narrative: The following orders were created for panel order Abscess/Wound Aspirate Culture, Aerobic & Anaerobic. Procedure Abnormality Status --------- ------ Abscess/Wound Aspirate C...[[id number]] Abnormal Final result Anaerobic Culture[[id number]] Final result Please view results for these tests on the individual orders. Anaerobic Culture [[id number]] Collected: 09/26/24 1650 Lab Status: Final result Specimen: Abscess from Groin, Left Updated: 09/30/24 1551 Anaerobic Culture No anaerobic organisms isolated Abscess/Wound Aspirate Culture, Aerobic & Anaerobic [[id number]] (Abnormal) Collected: 09/26/24 1702 Lab Status: Final result Specimen: Abscess from Knee, Left Updated: 09/30/24 1551 Narrative: The following orders were created for panel order Abscess/Wound Aspirate Culture, Aerobic & Anaerobic. Procedure Abnormality Status --------- ------ Abscess/Wound Aspirate C...[[id number]] Abnormal Final result Anaerobic Culture[[id number]] Final result Please view results for these tests on the individual orders. Anaerobic Culture [[id number]] Collected: 09/26/24 170 Lab Status: Final result Specimen: Abscess from Knee, Left Updated: 09/30/24 1551 Anaerobic Culture No anaerobic organisms isolated Sonicated Tissue/Implant Culture [[id number]] (Abnormal) Collected: 09/26/24 1716 Lab Status: Final result Specimen: Vascular Graft from Leg, Left Updated: 09/30/24 1349 Sonicated Tissue/Implant Culture Methicillin Resistant Staphylococcus aureus Comment: isolated from broth culture. Susceptibilities previously reported. Abscess/Wound Aspirate Culture, Aerobic Only [[id number]] (Abnormal) (Susceptibility) Collected: 09/26/24 170 Lab Status: [...] to doxycycline. Abscess/Wound Aspirate Culture, Aerobic Only [[id number]] (Abnormal) (Susceptibility) Collected: 09/26/241649 Lab Status: Final result Specimen: [...] is considered susceptible to doxycycline. AFB culture [[id number]] Collected: 09/27/241653 Lab Status: Preliminary result Specimen: Tissue from Thigh, Left Updated: 09/29/24 1201 Acid Fast Bacilli Culture No acid fast bacilli isolated to date. Acid Fast Stain No acid fast bacilli seen Fungus culture [[id number]] Collected: 09/27/241653 Lab Status: Preliminary result Specimen: [...] for consulting infectious diseases. Amaya Hernandez MD, [facility] Infectious Diseases Staff Physician * Vibha Guerrero RN - 10/04/2024 4:37 PM EST 1623: Pt arrived from OR via bed. Arouses to voice on arrival, simple mask in place, VSS. RAY drain x 2 and wound vac intact. 1653: Pt awake and alert. VS remain stable. Given juice for BG 70. Tolerating PO intake. 1700: Report called to DAVID Gaines. * Fawn Cunningham APRN - 10/04/2024 10:22 AM EST Follow Up [...] 119 152 225* 255* 177 ASSESSMENT Geovanna Dixon Jr. is a 49 [...] Diet NPO Monitoring: Q4 Fawn Cunningham APRN [facility] Endocrinology Diabetes Management Pager [phone] Weekends please page [phone] 35 minutes were spent over the course [...] 2nd toe amputation who was transferred from [facility] given concern for infected left fem-BK popliteal [...] smoking 1 week ago. He presented to [facility] on 09/26 and went to the OR [...] Daily heparin (porcine) 5,000 Units Subcutaneous Q8H [facility] lidocaine 1 patch Transdermal Q24H Operations this [...] ??C (98 ??F)] Heart Rate: [78-95] Resp: [-] BP: (105-162)/(77-99) SpO2: [94 %-97 %] Heart [...] signals present Labs: Recent Labs 10/04/24 0008 10/03/247 10/02/24 0041 WBC 12.58* 15.33* 10.93* HGB [...] Procedure Component Value - Date/Time Blood culture [[id number]] Collected: 09/29/242123 Lab Status: Preliminary result Specimen: Blood, Venous Updated: 10/03/24 230 Blood Culture No growth at 96 hours Blood culture [[id number]] Collected: 09/29/242123 Lab Status: Preliminary result Specimen: Blood, Venous Updated: 10/03/24 2301 Blood Culture No growth at 96 hours Blood culture [[id number]] Collected: 09/28/24 1749 Lab Status: Final result Specimen: Blood, Venous Updated: 10/03/24 1901 Blood Culture No growth at 120 hours Blood culture [[id number]] (Abnormal) Collected: 09/27/242132 Lab Status: Final result Specimen: Blood, Venous Updated: 10/02/24 0804 Blood Culture Methicillin Resistant Staphylococcus aureus Comment: Susceptibilities previously reported. Gram Stain Aerobic Bottle: Gram positive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 Updated: 09/28/24 0748 Fungus Culture No fungus isolated to date MRSA PCR Screen [[id number]] (Abnormal) Collected: 09/27/24 0751 Lab Status: Final result Specimen: Swab from Nares Updated: 09/27/24 1156 MRSA PCR Detected Narrative: This test was performed using the Xpert MRSA NxG test kit and is run on the [employer] GeneXpert Dx System. This test is cleared by the U.S. Food and Drug Administration for clinical use and its performance characteristics have been verified by the [facility] at [facility]. Fungus culture [[id number]] Collected: 09/26/241649 Lab Status: Preliminary result Specimen: Abscess from Groin, Left Updated: 09/27/24 0727 Fungus Culture No fungus isolated to date Fungus culture [[id number]] Collected: 09/26/241701 Lab Status: Preliminary result Specimen: [...] 2nd toe amputation who was transferred from [facility] given concern for infected left fem-BK popliteal PTFE bypass. He is now s/p an explantof an infected left femoral-below knee popliteal artery bypass graft (09/26), I/D groin abscess (), L GSV harvest, vein patch angioplasty, L CORK TILE FLOOR LAYER and BK pop w/ sartorius flap L [...] 81mg daily Hermila White APRN 10/02/2024 Pager: [phone] * María Carranza APRN - 10/01/2024 8:41 AM EST Images from the original note were not included. Vascular Surgery Progress Note Geovanna Dixon Jr. is a 49 y.o. 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 He presented to [facility] on 09/26 and went to the OR [...] WBC 10.1(9.5) - lytes WNL - BM MEDICAL NURSE (09/26) - BC NGTD Objective: Temp: [36.6 [...] and PT signals present Labs: Recent Labs 10/01/2420109/29/24235109/28/242350 WBC 10.15* 9.54* 12.76* HGB 9.1* 8.7* 8.5* HCT 26.9* 25.8* 24.7* PLATELET 444* 411* 331 Recent Labs 10/01/2420109/30/24 0609/29/24235109/28/24235009/28/24 1045 NA 138 -- 138 137 -- K 3.9 3.9 3.4* 3.2* 4.6 CL 105 -- 103 105 -- CO2 24 -- * -- BUN 10 -- 9* 6* -- CREATININE 0.47* -- 0.48* 0.52* -- PHOS 3.9 -- -- -- -- CALCIUM 8.1* -- 8.1* 6.7* -- Microbiology: Microbiology Results (last 7 days) Procedure Component Value - Date/Time Blood culture [[id number]] (Abnormal) (Susceptibility) Collected: 09/26/24 1422 Lab Status: Final result Specimen: Blood, Venous Updated: 10/01/24 06 Blood Culture Methicillin Resistant Staphylococcus aureus Comment: detected by PCR Isolate saved. If future testing is required, contact the Microbiology Fish Cutting Machine Operator. Gram Stain Aerobic Bottle: Gram positive cocci in clusters Susceptibility Methicillin Resistant Staphylococcus aureus VITEK 2 METHOD Clindamycin Resistant Gentamicin Susceptible [1] Linezolid Susceptible Oxacillin Resistant Trimethoprim/Sulfa Susceptible Vancomycin Susceptible [1] Gentamicin is not appropriate for monotherapy for gram-positive infections. Blood culture [[id number]] (Abnormal) Collected: 09/26/24 1845 Lab Status: Final result Specimen: Blood, Venous Updated: 10/01/24 0658 Blood Culture Methicillin Resistant Staphylococcus aureus Comment: isolated. Susceptibilities previously reported. Gram Stain Aerobic Bottle: Gram positive cocci in clusters Blood culture [[id number]] Collected: 09/29/242123 Lab Status: Preliminary result Specimen: Blood, Venous Updated: 09/30/24 2301 Blood Culture No Growth at 18-24 hrs. Blood culture [[id number]] Collected: 09/29/24 2124 Lab Status: Preliminary result Specimen: Blood, Venous Updated: 09/30/24 2301 Blood Culture No Growth at 18-24 hrs. Blood culture [[id number]] Collected: 09/28/24 1749 Lab Status: Preliminary result Specimen: Blood, Venous Updated: 09/30/24 1901 Blood Culture No growth at 48 hours Abscess/Wound Aspirate Culture, Aerobic & Anaerobic [[id number]] (Abnormal) Collected: 09/26/24 1650 Lab Status: Final result Specimen: Abscess from Groin, Left Updated: 09/30/24 1551 Narrative: The following orders were created for panel order Abscess/Wound Aspirate Culture, Aerobic & Anaerobic. Procedure Abnormality Status --------- ------ Abscess/Wound Aspirate C...[[id number]] Abnormal Final result Anaerobic Culture[[id number]] Final result Please view results for these tests on the individual orders. Anaerobic Culture [[id number]] Collected: 09/26/24 165 Lab Status: Final result Specimen: Abscess from Groin, Left Updated: 09/30/24 1551 Anaerobic Culture No anaerobic organisms isolated Abscess/Wound Aspirate Culture, Aerobic & Anaerobic [[id number]] (Abnormal) Collected: 09/26/24 1702 Lab Status: Final result Specimen: Abscess from Knee, Left Updated: 09/30/24 1551 Narrative: The following orders were created for panel order Abscess/Wound Aspirate Culture, Aerobic & Anaerobic. Procedure Abnormality Status --------- ------ Abscess/Wound Aspirate C...[[id number]] Abnormal Final result Anaerobic Culture[[id number]] Final result Please view results for these tests on the individual orders. Anaerobic Culture [[id number]] Collected: 09/26/24 170 Lab Status: Final result Specimen: Abscess from Knee, Left Updated: 09/30/24 1551 Anaerobic Culture No anaerobic organisms isolated Sonicated Tissue/Implant Culture [[id number]] (Abnormal) Collected: 09/26/24 1716 Lab Status: Final result Specimen: Vascular Graft from Leg, Left Updated: 09/30/24 1349 Sonicated Tissue/Implant Culture Methicillin Resistant Staphylococcus aureus Comment: isolated from broth culture. Susceptibilities previously reported. Abscess/Wound Aspirate Culture, Aerobic Only [[id number]] (Abnormal) (Susceptibility) Collected: 09/26/24 1702 Lab Status: [...] to doxycycline. Abscess/Wound Aspirate Culture, Aerobic Only [[id number]] (Abnormal) (Susceptibility) Collected: 09/26/24 1650 Lab Status: [...] is considered susceptible to doxycycline. Blood culture [[id number]] (Abnormal) Collected: 09/27/24 2133 Lab Status: Preliminary result Specimen: Blood, Venous Updated: 09/30/24 0718 Blood Culture Methicillin Resistant Staphylococcus aureus Comment: Susceptibilities previously reported. Gram Stain Aerobic Bottle: Gram positive cocci in clusters AFB culture [[id number]] Collected: 09/27/24 1654 Lab Status: Preliminary result Specimen: Tissue from Thigh, Left Updated: 09/29/24 1201 Acid Fast Bacilli Culture No acid fast bacilli isolated to date. Acid Fast Stain No acid fast bacilli seen AFB culture [[id number]] Collected: 09/26/24 1702 Lab Status: Preliminary result Specimen: Abscess from Knee, Left Updated: 09/29/24 1201 Acid Fast Bacilli Culture No acid fast bacilli isolated to date. Acid Fast Stain No acid fast bacilli seen Tissue Culture, Aerobic Only [[id number]] (Abnormal) (Susceptibility) Collected: 09/27/241653 Lab Status: Preliminary result Specimen: [...] is considered susceptible to doxycycline. Anaerobic Culture [[id number]] Collected: 09/27/241653 Lab Status: Preliminary result Specimen: Tissue from Thigh, Left Updated: 09/28/24 1355 Anaerobic Culture No anaerobic organisms isolated to date Fungus culture [[id number]] Collected: 09/27/241653 Lab Status: Preliminary result Specimen: Tissue from Thigh, Left Updated: 09/28/24 0748 Fungus Culture No fungus isolated to date MRSA PCR Screen [[id number]] (Abnormal) Collected: 09/27/24 0751 Lab Status: Final result Specimen: Swab from Nares Updated: 09/27/24 1156 MRSA PCR Detected Narrative: This test was performed using the Xpert MRSA NxG test kit and is run on the [employer] GeneXComputeNext Dx System. This test is cleared by the U.S. Food and Drug Administration for clinical use and its performance characteristics have been verified by the [facility] at [facility]. Fungus culture [[id number]] Collected: 09/26/24 165 Lab Status: Preliminary result Specimen: Abscess from Groin, Left Updated: 09/27/24 0727 Fungus Culture No fungus isolated to date Fungus culture [[id number]] Collected: 09/26/24 1702 Lab Status: Preliminary result [...] 2nd toe amputation who was transferred from [facility] given concern for infected left fem-BK popliteal PTFE bypass. He is now s/p an explantof an infected left femoral-below knee popliteal artery bypass graft (09/26), I/D groin abscess (), L GSV harvest, vein patch angioplasty, L CORK TILE FLOOR LAYER and BK pop w/ sartorius flap L fem, I/D, 09/29 L sartorius flap revision, vac change. 10/01/24: Tolerated gentle irrigation with saline at BSD today with clear to mildly serosang drainage - no purulence or malodor noted and patient tolerated well. Will plan for NPO at [facility] for return [facility] tomorrow. Hypertensive overnight, home [...] - ISS - diet today; NPO at [facility] for OR Tuesday 10/02 Anticoagulation: SQH TID Antiplatelet: ASA 81 María Carranza, [employer] OFFICER 10/01/2024 Pager: [phone] * Karolyn Hudson MD - 09/30/2024 11:21 AM EST Images from the original note were not included. Vascular Surgery Progress Note Patient ID Geovanna Dixon Jr. is a 49 y.o. 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 He presented to [facility] on 09/26 and went to the OR [...] hct plt Recent Labs 09/29/24 2352 09/28/24 23509/27/24 235 WBC 9.54* 12.76* 17.15* HGB 8.7* 8.5* 10.4* HCT 25.8* 24.7* 30.5* PLATELET 411* 331 316 Microbiology Microbiology Results (last 7 days) Procedure Component Value - Date/Time Blood culture [[id number]] (Abnormal) Collected: 09/27/24 2133 Lab Status: Preliminary result Specimen: Blood, Venous Updated: 09/30/24 0718 Blood Culture Methicillin Resistant Staphylococcus aureus Comment: Susceptibilities previously reported. Gram Stain Aerobic Bottle: Gram positive cocci in clusters Blood culture [[id number]] Collected: 09/28/24 1749 Lab Status: Preliminary result Specimen: Blood, Venous Updated: 09/29/24 1901 Blood Culture No Growth at 18-24 hrs. AFB culture [[id number]] Collected: 09/27/24 1654 Lab Status: Preliminary result Specimen: Tissue from Thigh, Left Updated: 09/29/24 1201 Acid Fast Bacilli Culture No acid fast bacilli isolated to date. Acid Fast Stain No acid fast bacilli seen AFB culture [[id number]] Collected: 09/26/24 1702 Lab Status: Preliminary result Specimen: Abscess from Knee, Left Updated: 09/29/24 1201 Acid Fast Bacilli Culture No acid fast bacilli isolated to date. Acid Fast Stain No acid fast bacilli seen Sonicated Tissue/Implant Culture [[id number]] (Abnormal) Collected: 09/26/24 1716 Lab Status: Preliminary result Specimen: Vascular Graft from Leg, Left Updated: 09/29/24 1132 Sonicated Tissue/Implant Culture Methicillin Resistant Staphylococcus aureus Comment: isolated from broth culture. Susceptibilities previously reported. Tissue Culture, Aerobic Only [[id number]] (Abnormal) (Susceptibility) Collected: 09/27/24 1654 Lab Status: [...] is considered susceptible to doxycycline. Blood culture [[id number]] (Abnormal) Collected: 09/26/24 1845 Lab Status: Preliminary result Specimen: Blood, Venous Updated: 09/29/24 0719 Blood Culture Methicillin Resistant Staphylococcus aureus Comment: isolated. Susceptibilities previously reported. Gram Stain Aerobic Bottle: Gram positive cocci in clusters Blood culture [[id number]] (Abnormal) (Susceptibility) Collected: 09/26/24 1422 Lab Status: Preliminary result Specimen: Blood, Venous Updated: 09/29/24 0717 Blood Culture Methicillin Resistant Staphylococcus aureus Comment: detected by PCR Isolate saved. If future testing is required, contact the Microbiology Fish Cutting Machine Operator. Gram Stain Aerobic Bottle: Gram positive cocci in clusters Susceptibility Methicillin Resistant Staphylococcus aureus VITEK 2 METHOD Clindamycin Resistant Gentamicin Susceptible [1] Linezolid Susceptible Oxacillin Resistant Trimethoprim/Sulfa Susceptible Vancomycin Susceptible [1] Gentamicin is not appropriate for monotherapy for gram-positive infections. Anaerobic Culture [[id number]] Collected: 09/27/24 1654 Lab Status: Preliminary result Specimen: Tissue from Thigh, Left Updated: 09/28/24 1355 Anaerobic Culture No anaerobic organisms isolated to date Abscess/Wound Aspirate Culture, Aerobic Only [[id number]] (Abnormal) (Susceptibility) Collected: 09/26/24 1702 Lab Status: [...] to doxycycline. Abscess/Wound Aspirate Culture, Aerobic Only [[id number]] (Abnormal) (Susceptibility) Collected: 09/26/241649 Lab Status: Preliminary result Specimen: [...] is considered susceptible to doxycycline. Fungus culture [[id number]] Collected: 09/27/241653 Lab Status: Preliminary result Specimen: Tissue from Thigh, Left Updated: 09/28/24 0748 Fungus Culture No fungus isolated to date MRSA PCR Screen [[id number]] (Abnormal) Collected: 09/27/24 0751 Lab Status: Final result Specimen: Swab from Nares Updated: 09/27/24 1156 MRSA PCR Detected Narrative: This test was performed using the Xpert MRSA NxG test kit and is run on the [employer] GeneXpert Dx System. This test is cleared by the U.S. Food and Drug Administration for clinical use and its performance characteristics have been verified by the [facility] at [facility]. Anaerobic Culture [[id number]] Collected: 09/26/241649 Lab Status: Preliminary result Specimen: Abscess from Groin, Left Updated: 09/27/24 1142 Anaerobic Culture No anaerobic organisms isolated to date Anaerobic Culture [[id number]] Collected: 09/26/24 1702 Lab Status: Preliminary result Specimen: Abscess from Knee, Left Updated: 09/27/24 1142 Anaerobic Culture No anaerobic organisms isolated to date Fungus culture [[id number]] Collected: 09/26/241649 Lab Status: Preliminary result Specimen: Abscess from Groin, Left Updated: 09/27/24 0727 Fungus Culture No fungus isolated to date Fungus culture [[id number]] Collected: 09/26/24 1702 Lab Status: Preliminary result Specimen: Abscess from Knee, Left Updated: 09/27/24 0744 Fungus Culture No fungus isolated to date New Studies Results for orders placed or performed during the hospital encounter of 09/26/24 Request For 2nd Read CT Lower Extremity (Exam End: 09/26/2024 1:50 PM) Result Value WORKSTATION ID [id number] Impression 1. There is a left femoral [...] who have questions please contact the health patient care specialist that requested your imaging first. Electronically signed by: Lisette Bruno MD, [facility] ([phone]), at 09/26/2024 3:[address] Lower Extremity w Contrast Left (Exam End: 09/27/2024 9:16 AM) Result Value WORKSTATION ID [id number] Impression IMPRESSION: 1. Interval explant of LEFT [...] who have questions please contact the health patient care specialist that requested your imaging first. 09/28 ABIs [...] 2nd toe amputation who was transferred from [facility] given concern for infected left fem-BK popliteal [...] BP: (157)/(71) Respiratory Rate Resp: 16 Resp: [12-22] SpO2 SpO2: 97 % SpO2: [92 %-97 %] BMI Body mass index is 32.73 kg/m??. 09/29 0701 - 09/30 0700 In: 2312 [P.O.:400; I.V.:1004] Out: 2166 [Urine:2074; Drains:80] General: awake and alert Lungs: clear Heart: reg Abdomen: soft Extremities: LLE with VAC Neuro: no deficits Recent Labs 09/29/24 23509/28/24235009/27/24235709/27/24 1755 WBC 9.54* 12.76* 17.15* 19.38* HGB 8.7* 8.5* 10.4* 11.0* HCT 25.8* 24.7* 30.5* 31.6* PLATELET 411* 331 316 322 Recent Labs 09/30/24 0627 09/29/24 23509/28/24 23509/28/24 1045 09/28/24 0455 09/27/242357 NA -- 138 137 -- -- 131* K 3.9 3.4* 3.2* 4.6 2.9* 3.2* CL -- 103 105 -- -- 95* CO2 -- 24 21* -- -- 23 BUN -- 9* 6* -- -- 5* CREATININE -- 0.48* 0.52* -- -- 0.48* GLUCOSE -- 133 204* -- -- 246* CALCIUM -- 8.1* 6.7* -- -- 8.1* MAGNESIUM -- 0.85 0.72 -- -- 0.77 Recent Labs 09/28/24 1516 PHART 7.42 PO2ART 103 [id number] 39 LACTATEART 1.1 BEART 0.2 Is this [...] - 09/29/2024 8:08 PM EST Geovanna Dixon is a 49 y.o. male status post [...] 0753 09/29/24 0345 09/28/24 2345 09/28/24 2200 09/28/24 1951 09/28/24 1642 09/28/24 0757 09/28/24 0354 09/27/24 2346 09/27/24 1951 09/27/24 1748 POCGLU 135 202* 184 238* 287* [...] erythema Neuro: no deficits Recent Labs 09/28/24 23509/27/24235709/27/24 1755 09/27/24 0001 09/26/24 1439 WBC 12.76* 17.15* 19.38* 23.20* 22.76* HGB 8.5* 10.4* 11.0* 11.7* 12.3* HCT 24.7* 30.5* 31.6* 33.6* 35.0* PLATELET 331 316 322 296 277 PT -- -- -- -- 21.6* INR -- -- -- -- 1.9 PTT -- -- -- -- 36 Recent Labs 09/28/24 23509/28/24 1045 09/28/24 0455 09/27/24 23509/27/24 0751 09/27/24 0505 09/27/24 0001 09/26/24 1439 [...] 1643 PHART 7.42 7.38 PO2ART 103 96 [id number] 39 41 LACTATEART 1.1 1.7 BEART 0.2 [...] Stacey Thomas MD 09/29/2024 9:11 AM * Renea Nunez, RD - 09/29/2024 7:07 AM EST Nutrition [...] Thank you, Renea Nunez, MS, RD, LD, [facility] Clinical Nutrition * Mariya Shi RN - 09/28/2024 11:01 PM EST OUTCOME EVALUATION NOTE: OUTCOME SUMMARY: A&O x4 and follows command in all extremities. Pain in LLE managed with scheduled meds- see MAR. Q1 neurovascular completed- LLE DP/ PT [...] Ramirez MD Vascular Surgery 09/28/24 * Fawn Cunningham APRN - 09/28/2024 12:02 PM EST Follow Up Diabetes Consult Patient Interview Blood glucose values and insulin use reviewed. Reviewed BGs and insulin recs with primary team thismorning for Geovanna. Pt required 101 units of [...] Diet CC Monitoring: Q4 Fawn Cunningham APRN [facility] Endocrinology Diabetes Management Pager [phone] Weekends please page [phone] 35 minutes were spent over the course [...] 0700 In: 3332 [P.O.:100; I.V.:3132] Out: 2049 [Urine:2000] General: awake and alert Lungs: clear Heart: [...] Labs 09/26/24 1643 PHART 7.38 PO2ART 96 [id number] 41 LACTATEART 1.7 BEART -1.4 Is this [...] 2nd toe amputation who was transferred from [facility] given concern for infected left fem-BK popliteal [...] smoking 1 week ago. He presented to [facility] on 09/26 and went to the OR [...] Procedure Component Value - Date/Time Fungus culture [[id number]] Collected: 09/27/24 1654 Lab Status: Preliminary result Specimen: Tissue from Thigh, Left Updated: 09/28/24 0748 Fungus Culture No fungus isolated to date Blood culture [[id number]] (Abnormal) Collected: 09/26/24 1845 Lab Status: Preliminary result Specimen: Blood, Venous Updated: 09/28/24 0711 Blood Culture Methicillin Resistant Staphylococcus aureus Comment: isolated. Susceptibility testing in progress. Gram Stain Aerobic Bottle: Gram positive cocci in clusters AFB culture [[id number]] Collected: 09/26/24 170 Lab Status: Preliminary result Specimen: Abscess from Knee, Left Updated: 09/27/24 2335 Acid Fast Stain No acid fast bacilli seen Tissue Culture, Aerobic Only [[id number]] Collected: 09/27/24 165 Lab Status: Preliminary result Specimen: Tissue from Thigh, Left Updated: 09/27/24 1810 Gram Stain Few Neutrophils seen No microorganisms seen Abscess/Wound Aspirate Culture, Aerobic Only [[id number]] (Abnormal) Collected: 09/26/24 170 Lab Status: Preliminary result Specimen: Abscess from Knee, Left Updated: 09/27/24 1520 Abscess/Wound Aspirate Culture Many Staphylococcus aureus Gram Stain Many neutrophils Many Gram positive cocci Abscess/Wound Aspirate Culture, Aerobic Only [[id number]] (Abnormal) Collected: 09/26/241649 Lab Status: Preliminary result Specimen: Abscess from Groin, Left Updated: 09/27/24 1519 Abscess/Wound Aspirate Culture Many Staphylococcus aureus Gram Stain Many neutrophils Many Gram positive cocci Blood culture [[id number]] (Abnormal) Collected: 09/26/24 1422 Lab Status: Preliminary result Specimen: Blood, Venous Updated: 09/27/24 1320 Blood Culture Methicillin Resistant Staphylococcus aureus Comment: detected by PCR Gram Stain Aerobic Bottle: Gram positive cocci in clusters MRSA PCR Screen [[id number]] (Abnormal) Collected: 09/27/24 0751 Lab Status: Final result Specimen: Swab from Nares Updated: 09/27/24 1156 MRSA PCR Detected Narrative: This test was performed using the Xpert MRSA NxG test kit and is run on the [employer] GeneXpert Dx System. This test is cleared by the U.S. Food and Drug Administration for clinical use and its performance characteristics have been verified by the [facility] at [facility]. Anaerobic Culture [[id number]] Collected: 09/26/24 165 Lab Status: Preliminary result Specimen: Abscess from Groin, Left Updated: 09/27/24 1142 Anaerobic Culture No anaerobic organisms isolated to date Anaerobic Culture [[id number]] Collected: 09/26/24 170 Lab Status: Preliminary result Specimen: Abscess from Knee, Left Updated: 09/27/24 1142 Anaerobic Culture No anaerobic organisms isolated to date Fungus culture [[id number]] Collected: 09/26/24 1650 Lab Status: Preliminary result Specimen: Abscess from Groin, Left Updated: 09/27/24726 Fungus Culture No fungus isolated to date Fungus culture [[id number]] Collected: 09/26/24 1702 Lab Status: Preliminary result Specimen: Abscess from Knee, Left Updated: 09/27/24726 Fungus Culture No fungus isolated to date New Studies Results for orders placed or performed during the hospital encounter of 09/26/24 Request For 2nd Read CT Lower Extremity (Exam End: 09/26/2024 1:50 PM) Result Value WORKSTATION ID [id number] Impression 1. There is a left femoral [...] who have questions please contact the health patient care specialist that requested your imaging first. Electronically signed by: Lisette Bruno MD, [facility] ([phone]), at 09/26/2024 3:[address] Lower Extremity w Contrast Left (Exam End: 09/27/2024 9:16 AM) Result Value WORKSTATION ID [id number] Impression IMPRESSION: 1. Interval explant of LEFT [...] who have questions please contact the health patient care specialist that requested your imaging first. Electronically signed by: Ignacia Chi MD, [facility] ([phone]), at 09/27/2024 10:48 AM Assessment & Plan Geovanna Dixon Jr. is a 49 y.o. male with a history of HTN, HLD, NSTEMI, CAD s/p CABG (12/2011), DM,obesity, PAD s/p L iliofem endart and L fem-BK pop bypass and L 2nd toe amputation who was transferred from [facility] given concern for infected left fem-BK popliteal [...] Superior part of dressing taken down. [address] [place] [address] place. Abd pads with serosanguinous drainage, replaced with fresh Abd pads. Rewrapped superior leg with gauze. Neuro: nonfocal, moving all extremities. Sensation intact in extremities bilaterally symmetric. Motor function intact in BLE, although left knee and hip motion limited by pain. Vascular Exam: R L DP 2/2 absent PT 2/2 absent AP: Geovanna Dixon Jr. is a 49 [...] Kita Hodge - 09/27/2024 3:58 PM EST Validation Leader Encounter Note Patient Name: Geovanna Dixon Jr. : [id number] MR#: [id number] Admit Date: 09/26/2024 2:08 PM Hospital Day 1 day Narrative: Financing Analyst initiated visit with patient during rounds on the unit. Patient indicated that he was not lutheran. He reported that he was in less [...] Labs 09/26/24 1643 PHART 7.38 PO2ART 96 XNS4NTW 41 LACTATEART 1.7 BEART -1.4 Is this [...] 2nd toe amputation who was transferred from [facility] given concern for infected left fem-BK popliteal [...] smoking 1 week ago. He presented to [facility] on 09/26 and went to the OR [...] Subcutaneous Nightly acetaminophen 975 mg Oral Q6H OJSE insulin lispro 2-12 Units Subcutaneous Q4H JOSE [...] 2nd toe amputation who was transferred from [facility] given concern for infected left fem-BK popliteal PTFE bypass. He is now s/p an explantof an infected left femoral-below knee popliteal artery bypass graft. Significant purulence under pr essure was seen intraoperatively, surrounding the entire bypass at proximal and distal anastomoses as well as the tunnel. There are retained grafts left at proximal and distal anastomoses, and a [place] drain placed from left groin to left [...] Bedrest - ABIs and vein mapping - Vanc/zosyn (09/26- - Continue aspirin and [...] graft associated infection. The patient presented to [facility] ED on 09/26 for evaluation of increasing [...] remained hemodynamically stable during his time at [facility] and was transported by ground to [facility] for vascular surgery consultation. Patient was admitted [...] 3.51) performed by Thony Garcia MD at [facility] MAIN OR PRO BYPASS GRAFT OTHR, FEM-TIBIAL Left 08/01/2024 @BYPASS GRAFT, FEM-ANT TIBIAL, -POST TIBIAL, -PERONEAL, -DP W\ SYNTHETIC CONDUIT (WRVU 23.66) performed by Lisette Maldonado MD at [facility] MAIN OR PRO CABG, ARTERY-VEIN, SINGLE 01/04/2012 @CABG, VENOUS & ARTERIAL GRAFT;SINGLE VEIN GRAFT performed by INNA TOVAR at [facility] MAIN OR PRO ENDOSCOPY W/VIDEO-ASST VEIN HARVEST, CABG 01/04/2012 ENDOSCOPIC HARVEST VEIN(S) FOR CABG performed by INNA TOVAR at [facility] MAIN OR VS ARTERIOGRAM LOWER EXTREMITY VASCULAR SURGERY 07/20/2024 VS Arteriogram Lower Extremity Vascular Surgery 07/20/2024 Anabel Finney MD [facility] INTERVENTIONL RAD Prior To Admission Medications: Medications [...] 3 times daily. Use as instructed Indications: [id number] each 1 Past Week FreeStyle Lancets 28 [...] mellitus, whatver the most affordable version is forPOLYBONA insurance 15 mL 1 Past Week insulin [...] 200 - 393 mg/dL Type and screen ([facility]/CGP/BABITA) Result Value Ref Range ABORH Type A POSITIVE PATIENT HISTORY Found Expires at 2359 on: 09/29/2024 ANTIBODY SCREEN AUTOMATED Negative T&S only valid at [facility] LAB CBC (with Diff) Result Value Ref [...] 09/26/2024 1:50 PM) Result Value WORKSTATION ID [id number] Impression 1. There is a left femoral [...] who have questions please contact the health patient care specialist that requested your imaging first. Electronically signed by: Lisette Bruno MD, [facility] ([phone]), at 09/26/2024 3:01 PM Assessment/Plan: Geovanna Dixon Jr. is a 49 [...] to the planned procedure. Hand Hygiene: The payment manager did perform hand hygiene prior to line insertion. Catheter type: PICC Lot number: [id number] Procedure Technique: Skin was prepped with chlorhexidine. [...] to the planned procedure. Hand Hygiene: The payment manager did perform hand hygiene prior to line insertion. Catheter type: PICC Lot number: [id number] Procedure Technique: Skin was prepped with chlorhexidine. [...] Miscellaneous Notes * Plan of Care - Terell Araiza RN - 10/10/2024 5:08 PM EST [...] on, Arms Reach Surveillance [continuous indirect monitoring]: Cami Purposeful Rounding Patient-specific fall prevention interventions for [...] (Revascularization) Goal: Acceptable Pain Control 10/10/20241706 by Terell Araiza RN Outcome: Outcome (s) achieved 10/10/2024 133 by Terell Araiza RN Outcome: Ongoing (Interventions Implemented as Appropriate) Problem: Tissue Perfusion Altered (Revascularization) Goal: Effective Tissue Perfusion 10/10/2024 1707 by Terell Araiza RN Outcome: Outcome (s) [...] abx and wound vac. Teaching done by [facility] withsister at 10am. Confirmed VNA visit. Delivery confirmed for tomorrow afternoon. Home Vac: I have called [facility] Inventory and they they have now delivered the home Act[employer]ac serial # [id number]. Pt reviewed the [facility] Act[employer]ac Proof of Delivery/Assignment of Benefits (POD/AOB)form and signed it; she has copy of this and the [facility] Patient Copy letter along with the supplies, I will fax copy of the POD/AOB to [facility]. Needs for Transition of Care: Plan for discharge is: Home w/ Services Outpatient Agency/Support Group Needs: Homecare agency Outpatient IV Medications - IV Access: Access Ordered Location: Home, Referred to [facility] Coordination, Referred to [facility] Services: Occupational Therapy, Physical Therapy, Registered Nurse Agency Referrals & Follow-up Care: Contact information [place] [facility] [place] [address] [facility] [id number] Transportation: family or friend will provide Functional status prior to admission: Independent Home Environment: Others in the home: sibling(s), other (see comments) (lives with his sister delmy and brother in law). Current Living Arrangements: home/apartment/condo. Accessibility Concerns: . Current Functional Ability: Assistive Person and Equipment DME used at home: none Other DME Needs: Wound Vac Provider: [facility] Patient is insured through: Primary Insurance: [employer] MA[employer]ED MEDICARE Payor: [place] [employer] MEDICARE / Plan: [employer] MEDICARE PPO / Product Type: *No Product type* / Secondary Insurance: N/A Prescription Coverage: Yes This plan was formulated with input from patient, and team. All are in agreement with plan. Cristina Turner, RN, BSN * Plan of Care - Lauren aZvala RN - 10/10/2024 12:15 AM EST OUTCOME [...] Pain Flowsheets Taken 10/09/20242022 Pain Management Interventions: oghtea-pru-azlns dosing utilized care clustered diversional activity provided [...] Identify and Manage Fall Risk Flowsheets (Taken 10/09/2024899) Safety Promotion/Fall Prevention: assistive device/personal items within reach activity supervised fall prevention program maintained clutter free environment maintained mobility aid in reach lighting adjusted nonskid shoes/slippers when out of bed room organization consistent safety round/check completed Intervention: Prevent Skin Injury Flowsheets (Taken 10/09/2024899) Body Position: position changed independently Intervention: Prevent [...] Intervention: Monitor and Manage Bleeding Flowsheets (Taken 10/09/2024899) Bleeding Management: dressing monitored Problem: Bowel Motility [...] Appropriate) Intervention: Optimize Tissue Perfusion Flowsheets (Taken 10/09/2024 0900) Body Position: position changed independently * Plan of Care - Jorge Torres RN - 10/09/2024 1:55 PM EST Images from the original note were not included. [facility] [place] [address] [facility] Vascular Access Service Peripherally Inserted Central Catheter (PICC) Teaching Sheet Peripherally inserted central catheters (wxid-cb-jmxw) (PICC) are used when you need IV [...] midline catheter? PICC lines are used for nursing home treatments. PICC lines may be used for [...] can be set up via the nurse Datapower Consultant to help you. What are possible complications [...] Efficacy, Safety, Use, and Administration of Cathflo, [employer] 2005 * Care Management - Cristina [...] Access: Access Ordered Location: Home, Referred to [facility] Coordination Home Health Services: Occupational Therapy, Physical Therapy, Registered Nurse- will remove PT, OT Agency Referrals: [facility] and [facility] for IV abx. [facility] can come tomorrow [...] 9:00 AM EST OFFICE OF CARE MANAGEMENT Datapower Consultant Follow-up Note Cristina Turner RN reviewed record and discussed patient with Care Team. Patient had been determined to discharge home with [facility] home vac need. Patient plan of care discussed in multidisciplinary rounds and assessment for continuing care and discharge needs. Diagnosis: Vascular graft infection, initial encounter INSURANCE: Payor: [employer]ED MEDICARE / Plan: [employer] MEDIC[employer] PPO / Product Type: *No Product type* / SECONDARY INSURANCE: N/A Discharge date planned for 10/09 if medically ready. Current Referral in place: VNA: [facility] Wound vac ordered in [employer] for home wound vac and order emailed to: María for signature. Datapower Consultant to follow with team and family to assist with discharge needs when patient ready for discharge. Cristina Turner RN, BSN Case Management * Plan of Care - Jordyn Navas RN - 10/09/2024 7:22 AM EST OUTCOME EVALUATION NOTE: OUTCOME SUMMARY: RYA drain minimal output - more frequent pain [...] where referrals are placed. Request referral to [place], [place] for IV abx or . Expected date of discharge: 10/11. Patient will require teaching. Referral routed to the Tank Car Mechanic for matching with agency/vendor and to provide [...] Identify and Manage Fall Risk Flowsheets (Taken 10/08/2024 08) Safety Promotion/Fall Prevention: assistive device/personal items within reach activity supervised clutter free environment maintained fall prevention program maintained mobility aid in reach nonskid shoes/slippers when out of bed room organization consistent safety round/check completed Intervention: Prevent Skin Injury Flowsheets (Taken 10/08/2024 08) Body Position: position changed independently Intervention: Prevent and Manage VTE (Venous Thromboembolism) Risk Flowsheets (Taken 10/08/2024 1605) VTE Prevention/Management: anticoagulant therapy Intervention: Prevent Infection Flowsheets (Taken 10/08/2024 08) Infection Prevention: environmental surveillance performed equipment surfaces disinfected hand hygiene promoted personal protective equipment utilized single patient room provided rest/sleep promoted Goal: Optimal Comfort and Wellbeing Outcome: Ongoing (Interventions Implemented as Appropriate) Intervention: Provide Person-Centered Care Flowsheets (Taken 10/08/2024 08) Trust Relationship/Rapport: emotional support provided care explained choices provided empathic listening provided questions answered questions encouraged thoughts/feelings acknowledged reassurance provided Goal: Readiness for Transition of Care Outcome: Ongoing (Interventions Implemented as Appropriate) Problem: Infection Goal: Absence of Infection Signs and Symptoms Outcome: Ongoing (Interventions Implemented as Appropriate) Intervention: Prevent or Manage Infection Flowsheets (Taken 10/08/2024 08) Fever Reduction/Comfort Measures: lightweight bedding lightweight clothing Isolation Precautions: protective environment maintained Infection Management: aseptic technique maintained Problem: Fall Injury Risk Goal: Absence of Fall and Fall-Related Injury Outcome: Ongoing (Interventions Implemented as Appropriate) Intervention: Identify and Manage Contributors Flowsheets (Taken 10/08/2024 0832) Medication Review/Management: medications reviewed Self-Care Promotion: independence encouraged BADL personal objects within reach BADL personal routines maintained Intervention: Promote Injury-Free Environment Flowsheets (Taken 10/08/2024 08) Safety Promotion/Fall Prevention: assistive device/personal items within reach activity supervised clutter free environment maintained fall prevention program maintained mobility aid in reach nonskid shoes/slippers when out of bed room organization consistent safety round/check completed Problem: Diabetes Comorbidity Goal: Blood Glucose Level Within Targeted Range Outcome: Ongoing (Interventions Implemented as Appropriate) Intervention: Monitor and Manage Glycemia Flowsheets (Taken 10/08/2024 08) Glycemic Management: blood glucose monitored insulin dose matched to carbohydrate intake Problem: Hypertension Comorbidity Goal: Blood Pressure in Desired Range Outcome: Ongoing (Interventions Implemented as Appropriate) Intervention: Maintain Blood Pressure Management Flowsheets (Taken 10/08/2024 08) Medication Review/Management: medications reviewed Syncope Management: position changed slowly Problem: Bleeding (Revascularization) Goal: Absence of Bleeding Outcome: Ongoing (Interventions Implemented as Appropriate) Intervention: Monitor and Manage Bleeding Flowsheets (Taken 10/08/2024 08) Bleeding Management: dressing monitored Problem: Bowel Motility Impaired (Revascularization) Goal: Effective Bowel Elimination Outcome: Ongoing (Interventions Implemented as Appropriate) Intervention: Enhance Bowel Motility and Elimination Flowsheets (Taken 10/08/2024 08) Bowel Motility Enhancement: fluid intake encouraged ambulation promoted Bowel Elimination Management: hygiene measures promoted relaxation techniques promoted Problem: Infection (Revascularization) Goal: Absence of Infection Signs and Symptoms Outcome: Ongoing (Interventions Implemented as Appropriate) Intervention: Prevent or Manage Infection Flowsheets (Taken 10/08/2024 08) Fever Reduction/Comfort Measures: lightweight bedding lightweight clothing Infection Management: aseptic technique maintained Problem: Ongoing Anesthesia Effects (Revascularization) Goal: Anesthesia/Sedation Recovery Outcome: Ongoing (Interventions Implemented as Appropriate) Intervention: Optimize Anesthesia Recovery Flowsheets (Taken 10/08/2024 08) Reorientation Measures: calendar in view clock in view Safety Promotion/Fall Prevention: assistive device/personal items within reach activity supervised clutter free environment maintained fall prevention program maintained mobility aid in reach nonskid shoes/slippers when out of bed room organization consistent safety round/check completed Problem: Pain (Revascularization) Goal: Acceptable Pain Control Outcome: Ongoing (Interventions Implemented as Appropriate) Intervention: Prevent or Manage Pain Flowsheets (Taken 10/08/2024 08) Diversional Activities: individual hobbies Pain Management Interventions: care clustered diversional activity provided position adjusted sxopap-gva-ekkyd dosing utilized pain management plan reviewed with patient/caregiver pillow support provided Problem: Postoperative Nausea and Vomiting (Revascularization) Goal: Nausea and Vomiting Relief Outcome: Ongoing (Interventions Implemented as Appropriate) Intervention: Prevent or Manage Nausea and Vomiting Flowsheets (Taken 10/08/2024 08) Nausea/Vomiting Interventions: nausea triggers minimized Problem: Postoperative Urinary Retention (Revascularization) Goal: Effective Urinary Elimination Outcome: Ongoing (Interventions Implemented as Appropriate) Intervention: Monitor and Manage Urinary Retention Flowsheets (Taken 10/08/2024 08) Urinary Elimination Promotion: toileting offered Problem: Tissue Perfusion Altered (Revascularization) Goal: Effective Tissue Perfusion Outcome: Ongoing (Interventions Implemented as Appropriate) Intervention: Optimize Tissue Perfusion Flowsheets (Taken 10/08/2024 08) Body Position: position changed independently * Plan [...] have. Alternately, during off-hours you may call [phone] to contact a pharmacist. * Plan of [...] PM EST PICC line placed today for nursing home ABX. Neurovascular checks unchanged. Good oral intake [...] from the [place] [address] [facility] Vascular Access Service Peripherally Inserted Central Catheter (PICC) Teaching Sheet Peripherally inserted central catheters (mcqj-ug-ecac) (PICC) are used when you need IV [...] midline catheter? PICC lines are used for nursing home treatments. PICC lines may be used for [...] can be set up via the nurse Datapower Consultant to help you. What are possible complications [...] Vascular Access Device Selection, Insertion, and Management, [employer] Access Systems 08/12. A Review of the Efficacy, Safety, Use, and Administration of Cathflo, [employer] 2005 * Care Management - Vibha [...] No Patient is insured through: Primary Insurance: [employer]ED MED[employer]ARE Payor: [employer]ARE / Plan: [employer] MED[employer]ARE PPO / Product Type: *No [...] of Discharge: 10/10/2024 Vibha Wahl RN-BSN-CM Pager: [phone] * Consult Note - Stormy Muller [facility] - 10/06/2024 9:19 AM EST Pending Sale To [facility] Pharmacokinetics Note Drug: Vancomycin Pharmacokinetic target: AUC24 (range) 400-600 mg/L.hr Current regimen: 1250 mg IV every 8 hours Geovanna Dixon is a(n) 49 years old male receiving Vancomycin 1250 mg IV every 8 hours for MRSA bacteremia/graft infection Recent measured serum creatinine values: 10/06/2024 00:03 0.85 mg/dL 10/04/2024 23:50 0.55 mg/dL 10/04/2024 00:08 0.56 mg/dL Assessment: Analysis of the most recent level(s) using [employer]rum[employer] gives the following patient-specific pharmacokinetic parameters: CL: [...] in a steady-state trough of 14.6 mg/L [id number] of 508 mg/L.hr. Recommendations: - SCr has [...] Meeks MD - 10/04/2024 5:01 PM EST [facility] Operative Note Patient Name: Geovanna Dixon Jr. : [id number] MR#: [id number] Case Date: 10/04/2024 Surgeon: Surgeons and Role: * Marko Dickson MD - Primary * Cristino Meeks MD - Resident - Assisting Preoperative diagnosis: Status post explant of infected left CORK TILE FLOOR LAYER-BK pop bypass graft Postoperative diagnosis: Status post explant of infected left CORK TILE FLOOR LAYER-BK pop bypass graft Procedure(s) (LRB): DEBRIDEMENT SKIN [...] 2nd toe amputation who was transferred from [facility] given concern for infected left fem-BK popliteal PTFE bypass. He is now s/p an explant of an infected left femoral-below knee popliteal artery bypass graft on 09/26 followed by I/D posterior thigh abscess on 09/27 then left GSV harvest, total explant of remaining PTFE then vein patch angioplasty of the left CORK TILE FLOOR LAYER and BK popliteal artery on 09/28 then [...] Note Patient Name: Geovanna Dixon Jr. : [id number] MR#: [id number] Case Date: 10/04/2024 Surgeon: Surgeons and Role: * Marko Dickson MD - Primary * Cristino Meeks MD - Resident - Assisting Preoperative diagnosis: Status post explant of infected left CORK TILE FLOOR LAYER-BK pop bypass graft Postoperative diagnosis: Status post explant of infected left CORK TILE FLOOR LAYER-BK pop bypass graft Procedure(s) (LRB): DEBRIDEMENT SKIN [...] No Patient is insured through: Primary Insurance: [employer]ED MEDICARE Payor: [employer]ARE / Plan: [employer] MED[employer]ARE PPO / Product Type: *No [...] Therapy, Physical Therapy, Registered Nurse Agency Referrals: [facility] Transportation: family or friend will provide Barriers [...] Anticipated Date of Discharge: 10/10/2024 Cristina Turner, DAVID, BSN * Consult Note - Yolande Estrada - 10/04/2024 10:45 AM EST BIT Evaluation Referral source: Admission screening Reason for referral: Other: Follow up of DAST/AUDIT score Interventions delivered: Patient declined Plan: BIT will sign off. If patient would like BIT to reengage please page BIT @ [phone] * Consult Note - Vangie Chandra [facility] - 10/04/2024 10:42 AM EST Pending Sale To [facility] Pharmacokinetics Note Drug: Vancomycin Pharmacokinetic target: AUC24 (range) 400-600 mg/L.hr Current regimen: 1500 mg IV every 8 hours Geovanna Dixon is a(n) 49 years old male receiving Vancomycin 1500 mg IV every 8 hours for graft infection Recent measured serum creatinine values: 10/04/2024 00:08 0.56 mg/dL 10/03/2024 00:27 0.51 mg/dL 10/02/2024 00:41 0.49 mg/dL Assessment: Analysis of the most recent level(s) using [employer]rummer gives the following patient-specific pharmacokinetic parameters: CL: [...] Chandra * Plan of Care - Cathryn Hankins, RN - 10/04/2024 6:49 AM EST OUTCOME [...] of Care Goal: Plan of Care Review 10/03/2024 1905 by Cathryn Hankins, RN Outcome: Ongoing (Interventions Implemented as Appropriate) 10/03/2024 0651 by Cathryn Hankins, RN Outcome: Ongoing (Interventions Implemented as Appropriate) [...] in his care. * Initial Assessments - Bishnu Jorge Remy, OT - 10/03/2024 10:55 AM EST Occupational Therapy Evaluation Patient profile: Geovanna Dixon Jr. is a 49 y.o. male with a history of HTN, HLD, NSTEMI, CAD s/p CABG (12/2011), DM, obesity, PAD s/p L iliofem endart and L fem-BK pop bypass and L 2nd toe amputationwho was transferred from [facility] given concern for infected left fem-BK popliteal PTFE bypass. He is now s/p an explant of an infected left femoral-below knee popliteal artery bypass graft (09/26), I/D groin abscess (09/27), L GSV harvest, vein patch angioplasty, L CORK TILE FLOOR LAYER and BK pop w/ sartorius flap L fem, I/D, 09/29 L sartorius flap revision, vac change. 10/03/24 NPO at [facility] for OR wound exploration. Wound [...] 3.51) performed by Thony Garcia MD at [facility] MAIN OR PRO BYPASS GRAFT OTHR, FEM-TIBIAL Left 08/01/2024 @BYPASS GRAFT, FEM-ANT TIBIAL, -POST TIBIAL, -PERONEAL, -DP W\ SYNTHETIC CONDUIT (WRVU 23.66) performed by Lisette Maldonado MD at [facility] MAIN OR PRO CABG, ARTERY-VEIN, SINGLE 01/04/2012 @CABG, VENOUS & ARTERIAL GRAFT;SINGLE VEIN GRAFT performed by INNA TOVAR at [facility] MAIN OR PRO DEBRIDEMENT MUSCLE AND FASCIA 20 SQ CM/< Left 09/29/2024 DEBRIDEMENT SKIN, SUBCU, MUSCLE, LOWER EXTREMITY (WRVU 2.7) performed by Anabel Finney MD at [facility] MAIN OR PRO DEBRIDEMENT MUSCLE AND FASCIA 20 SQ CM/< Left 10/02/2024 DEBRIDEMENT SKIN, SUBCU, MUSCLE, LOWER EXTREMITY (WRVU 2.7) performed by Hermila Mccormick MDat [facility] MA[facility] OR PRO DEBRIDEMENT SUBCUTANEOUS TISSUE 20 SQCM/< Left 09/27/2024 DEBRIDEMENT SKIN AND SUBCU, LOWER EXTREMITY (WRVU 1.01) performed by Hayley Torres MD at [facility] MAIN OR PRO DRAIN LOWER LEG DEEP ABSC/HEMATOMA Left 09/26/2024 INCISION & DRAINAGE, LEG OR ANKLE, DEEP ABSCESS OR HEMATOMA (WRVU 5.23) performed by Hayley Torres MD at [facility] OR PRO ENDOSCOPY W/VIDEO-ASST VEIN HARVEST, CABG 01/04/2012 ENDOSCOPIC HARVEST VEIN(S) FOR CABG performed by INNA TOVAR at [facility] MAIN OR PRO EXCISION, INFEC GRAFT, EXTREMITY Left 09/26/2024 EXCISION OF INFECTED GRAFT FROM LOWER EXTREMITY (WRVU 9.53) performed by Hayley Torres MD at [facility] MAIN OR PRO EXCISION, INFEC GRAFT, EXTREMITY Left 09/28/2024 EXCISION OF INFECTED GRAFT FROM LOWER EXTREMITY (WRVU 9.53) performed by Hayley Torres MD at [facility] MAIN OR PRO EXPLORATION NOT FOLLOWED BY SURG LOWER EXTREMITY ARTERY Left 09/29/2024 @EXPLORATION W\O SURGICAL REPAIR, FEMORAL ARTERY - JENNIFER (WRVU 7.5) performed by Anabel Finney MD at [facility] MAIN OR PRO FORM SKIN PEDICLE FLAP SCALP, ARM, LEG 09/28/2024 FLAP, PEDICLE,W OR W/O TRANSFER, LEGS (WRVU 10.12) performed by Hayley Torres MD at [facility] MAIN OR PRO I&D DEEP ABSCESS BURSA/HEMATOMA THIGH/KNEE REGION Left 09/26/2024 INCISION & DRAINAGE ABSCESS OR HEMATOMA, THIGH, KNEE SUPERFICIAL (WRVU 6.78) performed by Hayley Torres MD at [facility] MAIN OR PRO REVISION FEMORAL ANAST BPG GROIN OPEN W/NONAUTOG PATCH GRAFT Left 09/28/2024 REV. FEM. ANASTOMOSIS OF SYN. BYPASS GRAFT USING NONAUTOGENOUS PATCH ANGIOPLASTY-JENNIFER (WRVU 23.15) performed by Hayley Torres MD at [facility] MAIN OR PRO UNLISTED PROCEDURE VASCULAR SURGERY Left 09/28/2024 HARVEST SAPHENOUS VEIN (WRVU 13.24) performed by Hayley Torres MD at [facility] MAIN OR VS ARTERIOGRAM LOWER EXTREMITY VASCULAR SURGERY 07/20/2024 VS Arteriogram Lower Extremity Vascular Surgery 07/20/2024 Anabel Finney MD [facility] INTERVENTIONL RAD Social History: Patient lives w/ [...] Pt issued and educated on use of moss gatherer for moss gatherer lower items. Self-feeding: Independent Grooming: Set up [...] been seen for occupational therapy evaluation. Geovanna Dixon Jr. presents with the following performance [...] Discharge planning Total Minutes, Occupational Therapy: 35 ([id number]) OT Evaluation Code Rationale: Diagnosis & Pertinent Co-Morbidities affecting Plan of Care: see PMHx Occupational Profile & Client History: Brief Expanded Extensive x Assessment of Occupational Performance: 1-3 performance deficits 3-5 performance deficits x 5 + performance deficits Clinical Decision Making: Low Moderate High x Clinical decision making of low complexity using standardized patient assessment instrument and measurable assessment of functional outcome. Pager: [phone] Jorge Goetz OT 10/03/2024 Occupational Therapy Rehabilitation [...] Mccormick MD - 10/02/2024 2:06 PM EST [facility] [place] Patient Name: Geovanna Dixon Jr. : [id number] MR#: [id number] Case Date: 10/02/2024 Surgeon: Surgeons and Role: [...] 2nd toe amputation who was transferred from [facility] given concern for infected left fem-BK popliteal [...] fluid at most inferior portion along the [place] tunnel. Otherwise, the wound had healthy granulation [...] the groin, we then attached a 15 [place] Jose drain to the [place] drain, and remove the Yung drain, replacing it with the 15 [place] Jose drain. In a similar way we [...] through: Primary Insurance: [employer] MANAGED MEDICARE Payor: [employer] MANAGED MEDICARE / Plan: [employer] MA[employer]GED MEDICARE PPO / Product Type: *No Product type* / Secondary Insurance: N/A Plan for discharge is: Pending Hospital Course and PT/OT Recommendations Outpatient Agency/Support Group Needs: None Home Health Services: Occupational Therapy, Physical Therapy, Registered Nurse Agency Referrals: [facility]. [address] [place] [address] Transportation: family or friend will provide Barriers to discharge: Global: Denies needs/concerns at this time Plan: Patient is not medically ready related to: patient is going to the OR today for a washout andremains on blowout precautions. Plan going forward is: when able patient will need to work with PT/OT Anticipated Date of Discharge: 10/10/2024 Penny ROSAS, RN Phone: [phone] Pager: [phone] * Plan of Care - Heidi Mobley [...] output. * Consult Note - Katelyn Oconnor [facility] - 09/30/2024 7:43 AM EST Pending Sale To [facility] Pharmacokinetics Note Drug: Vancomycin Pharmacokinetic target: AUC24 (range) 400-600 mg/L.hr Current regimen: 1500 mg IV every 8 hours Geovanna Dixon is a(n) 49 years old male receiving Vancomycin 1500 mg IV every 8 hours for bacteremia Recent measured serum creatinine values: 09/29/2024 23:52 0.48 mg/dL 09/28/2024 23:51 0.52 mg/dL 09/27/2024 23:58 0.48 mg/dL Assessment: Analysis of the most recent level(s) using Yahoo!RX gives the following patient-specific pharmacokinetic parameters: CL: [...] Finney MD - 09/29/2024 2:41 PM EST [facility] [place] Patient Name: Geovanna Dixon Jr. : [id number] MR#: [id number] Case Date: 09/29/2024 Surgeon: Surgeons and Role: * Anabel Finney MD - Primary * CarlaTato leary MD - Fellow - Assisting Preoperative diagnosis: [...] 2nd toe amputation who was transferred from [facility] given concern for infected left fem-BK popliteal [...] mobilized and explored. The area around the CORK TILE FLOOR LAYER was irrigated copiously. The flap was then [...] closed with interrupted vicryl sutures and cameron. [place] were also placed at the superior aspect [...] No Patient is insured through: Primary Insurance: [employer] MANAGED MEDICARE Payor: [employer] MANAGED MEDICARE / Plan: [employer] MANAGED MEDICARE PPO / Product Type: *No Product type* / Secondary Insurance: N/A Plan for discharge is: Pending Hospital Course and PT/OT Recommendations Outpatient Agency/Support Group Needs: None Home Health Services: Occupational Therapy, Physical Therapy, Registered Nurse Agency Referrals: [facility] [address] [place] [address] Transportation: family or friend will provide Barriers [...] pended. Anticipated Date of Discharge: 10/04/2024 Penny ROSAS RN CM Phone: [phone] Pager: [phone] * Consult Note - Rose Wright APRN [...] 2nd toe amputation who was transferred from [facility] given concern for infected left fem-BK popliteal [...] smoking 1 week ago. He presented to [facility] on 09[place]26 and went to the OR [...] Procedure Component Value - Date/Time Blood culture [[id number]] (Abnormal) Collected: 09/27/242132 Lab Status: Preliminary result Specimen: Blood, Venous Updated: 09/29/24 0721 Blood Culture Methicillin Resistant Staphylococcus aureus Gram Stain Aerobic Bottle: Gram positive cocci in clusters Blood culture [[id number]] (Abnormal) Collected: 09/26/24 1845 Lab Status: Preliminary result Specimen: Blood, Venous Updated: 09/29/24 0719 Blood Culture Methicillin Resistant Staphylococcus aureus Comment: isolated. Susceptibilities previously reported. Gram Stain Aerobic Bottle: Gram positive cocci in clusters Blood culture [[id number]] (Abnormal) (Susceptibility) Collected: 09/26/24 1422 Lab Status: Preliminary result Specimen: Blood, Venous Updated: 09/29/24 0717 Blood Culture Methicillin Resistant Staphylococcus aureus Comment: detected by PCR Isolate saved. If future testing is required, contact the Microbiology Fish Cutting Machine Operator. Gram Stain Aerobic Bottle: Gram positive cocci in clusters Susceptibility Methicillin Resistant Staphylococcus aureus VITEK 2 METHOD Clindamycin Resistant Gentamicin Susceptible [1] Linezolid Susceptible Oxacillin Resistant Trimethoprim/Sulfa Susceptible Vancomycin Susceptible [1] Gentamicin is not appropriate for monotherapy for gram-positive infections. AFB culture [[id number]] Collected: 09/27/24 165 Lab Status: Preliminary result Specimen: Tissue from Thigh, Left Updated: 09/28/24 2226 Acid Fast Stain No acid fast bacilli seen Anaerobic Culture [[id number]] Collected: 09/27/24 165 Lab Status: Preliminary result Specimen: Tissue from Thigh, Left Updated: 09/28/24 1355 Anaerobic Culture No anaerobic organisms isolated to date Sonicated Tissue/Implant Culture [[id number]] Collected: 09/26/24 1716 Lab Status: Preliminary result Specimen: Vascular Graft from Leg, Left Updated: 09/28/24 1323 Sonicated Tissue/Implant Culture Culture in progress Tissue Culture, Aerobic Only [[id number]] (Abnormal) Collected: 09/27/24 165 Lab Status: Preliminary result Specimen: Tissue from Thigh, Left Updated: 09/28/24 1049 Tissue Culture Rare Staphylococcus aureus Gram Stain Few Neutrophils seen No microorganisms seen Abscess/Wound Aspirate Culture, Aerobic Only [[id number]] (Abnormal) (Susceptibility) Collected: 09/26/24 1702 Lab Status: [...] to doxycycline. Abscess/Wound Aspirate Culture, Aerobic Only [[id number]] (Abnormal) (Susceptibility) Collected: 09/26/241649 Lab Status: Preliminary result Specimen: [...] is considered susceptible to doxycycline. Fungus culture [[id number]] Collected: 09/27/24 165 Lab Status: Preliminary result Specimen: Tissue from Thigh, Left Updated: 09/28/24 0748 Fungus Culture No fungus isolated to date AFB culture [[id number]] Collected: 09/26/241701 Lab Status: Preliminary result Specimen: Abscess from Knee, Left Updated: 09/27/24 2335 Acid Fast Stain No acid fast bacilli seen MRSA PCR Screen [[id number]] (Abnormal) Collected: 09/27/24 0751 Lab Status: Final result Specimen: Swab from Nares Updated: 09/27/24 1156 MRSA PCR Detected Narrative: This test was performed using the Xpert MRSA NxG test kit and is run on the [employer] GeneXpert Dx System. This test is cleared by the U.S. Food and Drug Administration for clinical use and its performance characteristics have been verified by the [facility] at [facility]. Anaerobic Culture [[id number]] Collected: 09/26/241649 Lab Status: Preliminary result Specimen: Abscess from Groin, Left Updated: 09/27/24 1142 Anaerobic Culture No anaerobic organisms isolated to date Anaerobic Culture [[id number]] Collected: 09/26/24 170 Lab Status: Preliminary result Specimen: Abscess from Knee, Left Updated: 09/27/24 1142 Anaerobic Culture No anaerobic organisms isolated to date Fungus culture [[id number]] Collected: 09/26/24 1650 Lab Status: Preliminary result Specimen: Abscess from Groin, Left Updated: 09/27/24726 Fungus Culture No fungus isolated to date Fungus culture [[id number]] Collected: 09/26/24 1702 Lab Status: Preliminary result Specimen: Abscess from Knee, Left Updated: 09/27/24726 Fungus Culture No fungus isolated to date New Studies Results for orders placed or performed during the hospital encounter of 09/26/[address] Read CT Lower Extremity (Exam End: 09/26/2024 1:50 PM) Result Value WORKSTATION ID [id number] Impression 1. There is a left femoral [...] who have questions please contact the health patient care specialist that requested your imaging first. Electronically signed by: Lisette Bruno MD, [facility] ([phone]), at 09/26/2024 3:[address] Lower Extremity w Contrast Left (Exam End: 09/27/2024 9:16 AM) Result Value WORKSTATION ID [id number] Impression IMPRESSION: 1. Interval explant of LEFT [...] who have questions please contact the health patient care specialist that requested your imaging first. Electronically signed by: Ignacia Chi MD, [facility] ([phone]), at 09/27/2024 10:48 AM 09/28 ABIs Interpretation: RIGHT: No significant lower [...] 2nd toe amputation who was transferred from [facility] given concern for infected left fem-BK popliteal [...] at proximal and distal anastomoses and a [place] drain placed from left groin to left [...] Torres MD - 09/28/2024 12:23 PM EST [facility] Operative Note Patient Name: Geovanna Dixon Jr. : [id number] MR#: [id number] Case Date: 09/28/2024 Surgeon: Surgeons and Role: [...] pericardial patch and PTFE willard over the CORK TILE FLOOR LAYER was unincorporated. - Resection of prior femoral [...] Destination 1 : Left femoral proximal graft Second Hand Paper Machine Leg, Left SURGICAL PATHOLOGY Hayley Torres MD 09/28/2024 1410 2 : Left distal BK pop graft Second Hand Paper Machine Leg, Left SURGICAL PATHOLOGY Hayley Torres MD [...] Indications: 49M with history of a left CORK TILE FLOOR LAYER-BK popliteal artery bypass with PTFE performed in [...] solution. Systemic heparin was administered. Next, the CORK TILE FLOOR LAYER, SFA, and DFA were clamped. An 11-blade scalpel was used to excise the PTFE graft willard and the prior bovine pericardial patch, and all prior Prolene sutures were removed. Residual plaque in the arterial lumen was removed using a [place] elevator. The harvested vein patch was cut [...] the midline with division of the first veterinary livestock inspector, such that the sartorius muscle was free [...] prior bypass graft were irrigated below the Yung drains. Significant thrombus burden was expelled in [...] Torres MD - 09/28/2024 12:23 PM EST [facility] [place]ative Note Patient Name: Geovanna Dxion Jr. : [id number] MR#: [id number] Case Date: 09/28/2024 Surgeon: Surgeons and Role: [...] - Prior bovine pericardial patch over the CORK TILE FLOOR LAYER was unincorporated. - Resection of prior femoral [...] No * Consult Note - Tea Nguyen, [facility] - 09/28/2024 9:23 AM EST Drug: Vancomycin [...] Analysis of the most recent level(s) using Yahoo!RX gives the following patient-specific pharmacokinetic parameters: CL: [...] * Plan of Care - Mariya Shi RN - 09/27/2024 11:25 PM EST OUTCOME EVALUATION NOTE: OUTCOME SUMMARY: A&O x4 and follows command in all extremities. Pain in LLE managed with scheduled and PRN meds-see MAR. Q1 neurovascular completed- LLE DP/ PT doppler [...] Note Patient Name: Geovanna Dixon Jr. : [id number] MR#: [id number] Case Date: 09/27/2024 Surgeon: Surgeons and Role: [...] & ANAEROBIC Hayley Torres MD 09/27/2024 1654 Fluids: Intraprocedure Crystalloid Total None PRBCs: none [...] Torres MD - 09/27/2024 4:27 PM EST [facility] Operative Note Patient Name: Geovanna Dixon Jr. : [id number] MR#: [id number] Case Date: 09/26/2024 Surgeon: Surgeons and Role: [...] distal anastomoses with Prolene tag on latter. [place] drain placed from left groin to left [...] ANAEROBIC Hayley Torres MD 09/26/2024 1702 Drains: [place] drain between left groin to left thigh [...] HPI/Surgical Indications: 49M with history of left CORK TILE FLOOR LAYER-BK popliteal artery bypass graft with PTFE (July [...] the tunnel was milked out. A 0.5 Yung drain was used to maintain patency of [...] Torres MD - 09/27/2024 4:27 PM EST [facility] Operative Note Patient Name: Geovanna Dixon Jr. : [id number] MR#: [id number] Case Date: 09/27/2024 Surgeon: Surgeons and Role: [...] 2nd toe amputation who was transferred from [facility] given concern for infected left fem-BK popliteal [...] smoking 1 week ago. He presented to [facility] on 09/26 and went to the OR [...] instrument counts were correct times two. Dr. Burton was available for the entirety of the [...] management and to provide a review of nursing home diabetes care. Glargine 25 units administered this [...] outpatient diabetes regimen: Diabetes Provider: PCP in [facility] Medications: Lantus 50 units, lispro 10 [...] Q8H JOSE lidocaine 1 patch Transdermal Q24H Infusions: lactated Ringers 100 mL/hr (09/27/24 0754) sodium chloride 0.9% PRN: potassium chloride ER [...] Cunningham APRN Endocrinology Diabetes Management Service Pager: [phone] Weekends please page [phone] 80 minute visit was spent in counseling [...] surrogate would be surrogate decision maker per [place] surrogate decision making law. (Only good for 180 days) Any patient receiving care in [place] must abide by [place] law. The hierarchy for surrogate decision making [...] The agent with financial power of employment attorney or a conservator appointed in accordance [...] were you homeless or living in a chcf (including now)?: No In the past 12 months has the [employer], gas, oil, or water [employer] threatened to shut off services in your [...] DME: none Home Address confirmed as: [address] [place] [address] Social & Family Supports: All names listed [...] his home before. Health/Prescription Coverage: Primary Insurance: [employer] MANAGED MEDICARE Payor: [employer] MANAGED MEDICARE / Plan: [facility] PPO / Product Type: *No Product type* / Secondary Insurance: N/A ; Prescription Coverage: Yes Preferred Pharmacy: [facility] - [place], [place] - [address] [facility] [address] [facility] [address] [facility] - [place], [place] - [address] [address] [place], [place] - [address] [place] [address] [address] [facility] [address] [facility] [address] Status: Patient is a : No Primary Care Provider confirmed: JUSTIN Roberson [phone] Patient/Caregiver Goals of Treatment: patient will need [...] where referrals are placed. Provided patient with [facility] Star Quality Rating handout. They have requested referrals to: [facility] [employer]. [address] [place] [address] Expected date of discharge: TBD Referral routed to the Tank Car Mechanic for matching with agency/vendor and to provide [...] and coordination of care as indicated. Penny ROSAS, RN Phone: [phone] Pager: [phone] * Consult Note - Stacey Thomas MD [...] extremity aching prompting him to go to [facility]. The groin pain dissipated. About a week later on 09/26 he developed left-sided groin pain prompting him to go to [facility] once again. Lab work notable for WBC count of 21, lactic acid 3.6. He underwent evaluation with a CT scan demonstrating an abscess from the left groin operative site the entire left of the graft down by the knee. He was transferred to [facility] for further care and he was [...] 3.51) performed by Thony Garcia MD at [facility] MAIN OR PRO BYPASS GRAFT OTHR, FEM-TIBIAL Left 08/01/2024 @BYPASS GRAFT, FEM-ANT TIBIAL, -POST TIBIAL, -PERONEAL, -DP W\ SYNTHETIC CONDUIT (WRVU 23.66) performed by Lisette Maldonado MD at [facility] MAIN OR PRO CABG, ARTERY-VEIN, SINGLE 01/04/2012 @CABG, VENOUS & ARTERIAL GRAFT;SINGLE VEIN GRAFT performed by INNA TOVAR at [facility] MAIN OR PRO ENDOSCOPY W/VIDEO-ASST VEIN HARVEST, CABG 01/04/2012 ENDOSCOPIC HARVEST VEIN(S) FOR CABG performed by INNA TOVAR at [facility] MAIN OR VS ARTERIOGRAM LOWER EXTREMITY VASCULAR SURGERY 07/20/2024 VS Arteriogram Lower Extremity Vascular Surgery 07/20/2024 Anabel Finney MD [facility] INTERVENTIONL RAD Medications: potassium chloride ER (Klor-Con [...] Continuous Infusions: lactated Ringers 100 mL/hr (09/27/24 2594) sodium chloride 0.9% PRN Meds:.potassium chloride ER [...] PRN oxycodone. FSBG completed, SSI given per JAN, MD aware of high glucose levels, long acting insulin added & administered per orders. q1h neurovsac checks completed, +Doppler signal in BLE @ 2000 & 2100. LLE DP signal absent on 0 assessment, Vascular MD @ bedside & CC team aware. Pt reported decreased sensation in LLE, MD aware. LLE PT signal absent on 0200 assessment, Vascular MD @ bedside & CC team aware. PLAN MOVING FORWARD: q1h NV checks Dressing change @ bedside RTOR 09/28 CPG GOAL OUTCOME EVALUATION: Ongoing * Plan of Care - Pamela Eli RN - 09/26/2024 4:58 PM EST OUTCOME EVALUATION NOTE: OUTCOME SUMMARY: Patient admitted to SICU as a transfer from [facility] for suspected graft infection/sepsis. A/Ox4, able to [...] Torres MD - 09/26/2024 4:50 PM EST [facility] Operative Note Patient Name: Geovanna Dixon Jr. 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 Postoperative diagnosis: left infected femoral to below knee bypass graft Procedure: Explant of infected LEFT CORK TILE FLOOR LAYER to below-knee popliteal artery PTFE bypass graft [...] Indications: 49M with history of a left CORK TILE FLOOR LAYER-BK popliteal artery bypass with PTFE performed in [...] tunnel using a large Amy clamp, and [place] drains were used to prevent the tunnel [...] 2nd toe amputation who was transferred from [facility] given concern for infected left fem-BK popliteal [...] 3.51) performed by Thony Garcia MD at [facility] MAIN OR PRO BYPASS GRAFT OTHR, FEM-TIBIAL Left 08/01/2024 @BYPASS GRAFT, FEM-ANT TIBIAL, -POST TIBIAL, -PERONEAL, -DP W\ SYNTHETIC CONDUIT (WRVU 23.66) performed by Lisette Maldonado MD at [facility] MAIN OR PRO CABG, ARTERY-VEIN, SINGLE 01/04/2012 @CABG, VENOUS & ARTERIAL GRAFT;SINGLE VEIN GRAFT performed by INNA TOVAR at [facility] MAIN OR PRO ENDOSCOPY W/VIDEO-ASST VEIN HARVEST, CABG 01/04/2012 ENDOSCOPIC HARVEST VEIN(S) FOR CABG performed by INNA TOVAR at [facility] MAIN OR VS ARTERIOGRAM LOWER EXTREMITY VASCULAR SURGERY 07/20/2024 VS Arteriogram Lower Extremity Vascular Surgery 07/20/2024 Anabel Finney MD [facility] INTERVENTIONL RAD Social Hx: Social History Socioeconomic [...] 3 times daily. Use as instructed Indications: [id number] each 1 FreeStyle Lancets 28 gauge Misc [...] 3.7 4.1 CL 100 102 103 CO2 24 23 BUN 10 11 12 CREATININE [...] 2nd toe amputation who was transferred from [facility] given concern for infected left fem-BK popliteal [...] 10/23/2024 1:00 PM EST Appointment XRay at [address] [place] [phone] Isabela Hayward APRN [facility] INFECTIOUS DISEASE [place] [address] 11/09/2024 1:30 PM EST Office Visit [place] [address] Isabela Hayward, COMBAT INFORMATION CENTER OFFICER [facility] [place] [address] 11/10/2024 10:00 AM EST Office Visit [place] [phone] Dai Whitman, RESHMA 11/21/2024 2:15 PM EST Office Visit [place] [phone] Dayanara Grover MD [facility] [place] [address] Pending Results Name Type Priority Associated Diagnoses [...] 4:49 PM EST Debridement, Skin, Sub-Q Tissue (24572) 10/04/2024 3:10 PM EST Status post explant of infected left CORK TILE FLOOR LAYER-BK pop bypass graft DEBRIDEMENT SKIN AND SUBCU, [...] POC, GLUCOSE Routine 10/02/2024 3:05 PM EST DEBRIDEMENT SKIN, SUBCU, MUSCLE, LOWER [...] - JENNIFER Routine 09/29/2024 3:06 PM EST POC, GLUCOSE Routine 09/29/2024 11:49 AM EST [...] PM EST BLOOD GAS ARTERIAL POC Routine 4 3:16 PM EST SURGICAL PATHOLOGY Routine 09/28/2024 2: 10 PM EST POTASSIUM Routine 09/28/2024 10:45 AM EST REV. [...] FUNGUS CULTURE Routine 09/27/2024 4:54 PM EST POC, GLUCOSE Routine 09/27/2024 3:23 PM EST [...] POC, GLUCOSE Routine 09/26/2024 4:29 PM EST BLOOD GAS VENOUS POC Routine 09/26/2024 3:28 [...] LOWER EXTREMITY Routine 09/26/2024 1:50 PM EST documented in this encounter Results * (ABNORMAL) Comprehensive metabolic panel Non-fasting (10/16/2024) Glucose Lvl - External 124(H) [facility] Blood Urea Nitrogen - External 17 [facility] Creatinine - External 0.9 [facility] EGFR - External 104.05 [facility] Anion Gap - External 11.6(H) [facility] Sodium - External 141 [facility] Potassium - External 4.3 [facility] Chloride - External 103 [facility] CO2 - External 26.4 [facility] Calcium - External 9.0 [facility] Protein, Total - External 6.9 [facility] Albumin - External 3.0(L) [facility] Total Bilirubin - External 0.20 [facility] Alk Phos - External 124(H) [facility] AST (SGOT) - External 12 [facility] ALT (SGPT) - External 22 [facility] Blood VENOUS BLOOD SPECIMEN / Unknown 10/16/2024 Amaya Hernandez MD CHEMISTRY ORDERABLES [place] [id number] [facility] [address] [place] [phone] * CK (10/16/2024) CK, Total - External 39 [facility] Blood VENOUS BLOOD SPECIMEN / Unknown 10/16/2024 Amaya Hernandez MD CHEMISTRY ORDERABLES [place] [id number] [facility] [address] [place] [address] [phone] * (ABNORMAL) CBC (with Diff) (10/16/2024) WBC - External 10.99(H) [facility] RBC - External 3.71(L) [facility] Hemoglobin - External 10.8(L) [facility] Hematocrit - External 33.8(L) [facility] MCV - External 91 [facility] MCH - External 29.1 [facility] MCHC - External 32.0 [facility] RDWCV - External 14.2(H) [facility] Platelets - External 512(H) [facility] MPV - External 9.8 [facility] NRBC % - External 0.0 [facility] NRBC Abs - External 0.0 [facility] Neutrophils % - External 64.2 [facility] Lymphocytes % - External 25.8 [facility] Monocytes % - External 6.8 [facility] Eosinophils % - External 2.0 [facility] Basophils % - External 0.9 [facility] Immature Gran % - External 0.3 [facility] Neutr ABS (ANC) - External 7.06(H) [facility] Lymphocyte ABS - External 2.84 [facility] Monocyte ABS - External 0.75 [facility] Eosinophil ABS - External 0.22 [facility] Basophil ABS - External 0.10 [facility] Blood VENOUS BLOOD SPECIMEN / Unknown 10/16/2024 Amaya Hernandez MD HEMATOLOGY ORDERABLE S [address] [place] [address] [phone] * POC, GLUCOSE (10/10/2024 4:27 PM EST) Glucometer, POC 172 65 - 199 mg/dL 10/10/2024 4:27 PM EST [facility] Comment:Supplemental ranges: <140 mg/dL before meals <180 mg/dL all other times of the day. Blood CAPILLARY BLOOD / Unknown 10/10/2024 4:27 PM EST 10/10/2024 4:27 PM EST Hayley Torres MD POINT OF CARE TEST O GILDA [facility] [place] [address] * POC, GLUCOSE (10/10/2024 11:10 AM EST) Glucometer, POC 174 65 - 199 mg/dL 10/10/2024 11:11 AM EST [facility] Comment:Supplemental ranges: <140 mg/dL before meals <180 mg/dL all other times of the day. Blood CAPILLARY BLOOD / Unknown 10/10/2024 11:10 AM EST 10/10/2024 11:11 AM EST Hayley Torres MD POINT OF CARE TEST O GILDA Performing Organization Address City/[facility]/ZIP Co de Phone Number [facility] [place] [address] * POC, GLUCOSE (10/10/2024 7:46 AM EST) Glucometer, POC 141 65 - 199 mg/dL 10/10/2024 7:46 AM EST [facility] Comment:Supplemental ranges: <140 mg/dL before meals <180 mg/dL all other times of the day. Blood CAPILLARY BLOOD / Unknown 10/10/2024 7:46 AM EST 10/10/2024 7:46 AM EST Hayley Torres MD POINT OF CARE TEST O GILDA [facility] [place] [address] * POC, GLUCOSE (10/10/2024 6:11 AM EST) Pathologist [facility] Glucometer, POC 127 65 - 199 mg/dL 10/10/2024 6:11 AM EST [facility] Comment:Supplemental ranges: <140 mg/dL before meals <180 mg/dL all other times of the day. Blood CAPILLARY BLOOD / Unknown 10/10/2024 6:11 AM EST 10/10/2024 6:11 AM EST Hayley Torres MD POINT OF CARE TEST O RDERABLES [facility] [place] [address] * CK (10/10/2024 12:33 AM EST) [facility] Creatine Kinase 32 0 - 200 unit/L 10/10/2024 8:54 AM [facility] Blood VENOUS BLOOD SPECIMEN / Unknown Venipuncture / Unknown 10/10/2024 12:33 AM EST 10/10/2024 12:43 AM EST María Carranza APRN CHEMISTRY ORDER RANDELL Performing Organization Address City/[facility]/ZIP Co de Phone Number [facility] [place] [address] * (ABNORMAL) CBC (with Diff) (10/10/2024 12:33 AM EST) [facility] White Blood Cell 11.57(H) 4.00 - 9.50 [...] Eos % 1.6 % 10/10/2024 12:48 AM EST [facility] Eos Absolute 0.19 0.00 - 0.40 [...] EST Hayley Torres MD HEMATOLOGY ORDERABLE S [facility] [place] [address] * (ABNORMAL) Basic Metabolic Panel (10/10/2024 12:33 [...] 3.5 - 5.0 mMol/L 10/10/2024 1:12 AM EST [facility] Chloride 103 98 - 107 [...] 8.5 - 10.5 mg/dL 10/10/2024 1:12 AM EST [facility] Est Glomerular Filtration Rate - Male 119 mL/min/1. 73 m?? 10/10/2024 1:12 AM [facility] [...] AM EST Hayley Torres MD CHEMISTRY ORDERABLES [facility] [place] [address] * Phosphorus (10/10/2024 12:33 AM EST) Phosphorus 3.8 2.5 - 4.5 mg/dL 10/10/2024 1:12 AM [facility] Blood VENOUS BLOOD SPECIMEN / Unknown Venipuncture / Unknown 10/10/2024 12:33 AM EST 10/10/2024 12:43 AM EST Hayley Torres MD CHEMISTRY ORDERABLES Performing Organization Address City/[facility] Co de Phone Number [facility] [place] [address] * Magnesium (10/10/2024 12:33 AM EST) Magnesium 0.81 0.69 - 1.07 mMol/L 10/10/2024 1:12 AM EST [facility] Blood VENOUS BLOOD SPECIMEN / Unknown Venipuncture / Unknown 10/10/2024 12:33 AM EST 10/10/2024 12:43 AM EST Hayley Torres MD CHEMISTRY ORDERABLES Performing Organization Address [facility] Co de Phone Number [facility] [place] [address] * POC, GLUCOSE (10/10/2024 12:31 AM EST) Glucometer, POC 119 65 - 199 mg/dL 10/10/2024 12:32 AM EST [facility] Comment:Supplemental ranges: <140 mg/dL before meals <180 mg/dL all other times of the day. Blood CAPILLARY BLOOD / Unknown 10/10/2024 12:31 AM EST 10/10/2024 12:32 AM EST Hayley Torres MD POINT OF CARE TEST O RDERABLES Performing Organization Address City/[facility] Co de Phone Number [facility] [place] [address] * POC, GLUCOSE (10/09/2024 8:16 PM EST) Glucometer, POC 104 65 - 199 mg/dL 10/09/2024 8:16 PM EST [facility] Comment:Supplemental ranges: <140 mg/dL before meals <180 mg/dL all other times of the day. Blood CAPILLARY BLOOD / Unknown 10/09/2024 8:16 PM EST 10/09/2024 8:16 PM EST Hayley Torres MD POINT OF CARE TEST O RDERAHERNANDEZ Performing Organization Address [facility] Co de Phone Number [facility] [place] [address] * POC, GLUCOSE (10/09/2024 3:57 PM EST) Glucometer, POC 120 65 - 199 mg/dL 10/09/2024 3:57 PM EST [facility] Comment:Supplemental ranges: <140 mg/dL before meals <180 mg/dL all other times of the day. Blood CAPILLARY BLOOD / Unknown 10/09/2024 3:57 PM EST 10/09/2024 3:57 PM EST Hayley Torres MD POINT OF CARE TEST O GILDA Performing Organization Address [facility] Co de Phone Number [facility] [place] [address] * Place PICC Line: Contact Vascular Access Page [phone] Extremity to exclude: No restrictions; Is PICC procedure required PRIOR to patients discharge? Yes (10/09/2024 1:55 PM EST) Narrative Jorge Torres RN - 10/09/2024 1:55 PM EST Jorge [...] to the planned procedure. Hand Hygiene: The payment manager did perform hand hygiene prior to line insertion. Catheter type: PICC Lot number: [id number] Procedure Technique: Skin was prepped with chlorhexidine. [...] Guidance (IV Team) (10/09/2024 1:55 PM EST) [employer] WORKSTATION ID [id number] RAD Anatomical Region Laterality Modality N/A Radio [...] who have questions please contact the health patient care specialist that requested your imaging first. ? Electronically signed by: Terell Salvador MD, [facility] ([phone]), at 10/09/2024 3:30 PM Narrative 10/09/2024 3:30 [...] patients who have questions please contactthe health patient care specialist that requested your imaging first. Electronically signed by: Terell Salvador MD, [facility]([phone]), at 10/09/2024 3:30 PM María Carranza APRN IMG FRANCHESKA [facility]ERT * POC, GLUCOSE (10/09/2024 11:40 AM EST) [facility] Glucometer, POC 180 65 - 199 mg/dL 10/09/2024 11:40 AM EST [facility] Comment:Supplemental ranges: <140 mg/dL before meals <180 mg/dL all other times of the day. Blood CAPILLARY BLOOD / Unknown 10/09/2024 11:40 AM EST 10/09/2024 11:41 AM EST Hayley Torres MD POINT OF CARE TEST O GILDA [facility] [place] [address] * (ABNORMAL) POC, GLUCOSE (10/09/2024 7:35 AM EST) Glucometer, POC 215(H) 65 - 199 mg/dL 10/09/2024 7:36 AM EST [facility] Comment:Supplemental ranges: <140 mg/dL before meals <180 mg/dL all other times of the day. Blood CAPILLARY BLOOD / Unknown 10/09/2024 7:35 AM EST 10/09/2024 7:36 AM EST Hayley Torres MD POINT OF CARE TEST O GILDA Performing Organization Address [facility] Co de Phone Number [facility] [place] [address] * POC, GLUCOSE (10/09/2024 4:26 AM EST) Glucometer, POC 175 65 - 199 mg/dL 10/09/2024 4:26 AM EST [facility] Comment:Supplemental ranges: <140 mg/dL before meals <180 mg/dL all other times of the day. Blood CAPILLARY BLOOD / Unknown 10/09/2024 4:26 AM EST 10/09/2024 4:26 AM EST Hayley Torres MD POINT OF CARE TEST O GILDA Performing Organization Address City/[facility]/ZIP Co de Phone Number [facility] [place] [address] * (ABNORMAL) CBC (with Diff) (10/09/2024 12:45 AM EST) White Blood Cell 11.27(H) 4.00 - 9.50 x10(3)/mc L 10/09/2024 1:31 AM [facility] Red Blood Cell 3.74(L) 4.58 - 5.54 x10(6)/mc L 10/09/2024 1:31 AM [facility] Hemoglobin 10.8(L) 13.7 - 16.5 g/dL 10/09/2024 1:31 AM [facility] - 0.40 x10(3)/mc L 10/09/2024 1:31 AM [facility] Basophil % 1.1 % 10/09/2024 1:31 [...] EST Hayley Torres MD HEMATOLOGY ORDERABLE S [facility] [place] [address] * (ABNORMAL) Basic Metabolic Panel (10/09/2024 12:45 [...] Torres MD CHEMISTRY ORDERABLES Performing Organization Address [facility] Co de Phone Number [facility] [place] [address] * Phosphorus (10/09/2024 12:45 AM EST) Phosphorus 3.9 2.5 - 4.5 mg/dL 10/09/2024 1:54 AM EST [facility] Blood VENOUS BLOOD SPECIMEN / Unknown Venipuncture / Unknown 10/09/2024 12:45 AM EST 10/09/2024 1:27 AM EST Hayley Torres MD CHEMISTRY ORDERABLES Performing Organization Address [facility] Co de Phone Number [facility] [place] [address] * Magnesium (10/09/2024 12:45 AM EST) Magnesium 0.80 0.69 - 1.07 mMol/L 10/09/2024 1:54 AM EST [facility] Blood VENOUS BLOOD SPECIMEN / Unknown Venipuncture / Unknown 10/09/2024 12:45 AM EST 10/09/2024 1:27 AM EST Hayley Torres MD CHEMISTRY ORDERABLES Performing Organization Address City/[facility] Co de Phone Number [facility] [place] [address] * POC, GLUCOSE (10/09/2024 12:11 AM EST) Glucometer, POC 157 65 - 199 mg/dL 10/09/2024 12:11 AM EST [facility] Comment:Supplemental ranges: <140 mg/dL before meals <180 mg/dL all other times of the day. Blood CAPILLARY BLOOD / Unknown 10/09/2024 12:11 AM EST 10/09/2024 12:11 AM EST Hayley Torres MD POINT OF CARE TEST O GILDA Performing Organization Address City/[facility]/ZIP Co de Phone Number [facility] [place] [address] * POC, GLUCOSE (10/08/2024 7:25 PM EST) Glucometer, POC 157 65 - 199 mg/dL 10/08/2024 7:25 PM EST [facility] Comment:Supplemental ranges: <140 mg/dL before meals <180 mg/dL all other times of the day. Blood CAPILLARY BLOOD / Unknown 10/08/2024 7:25 PM EST 10/08/2024 7:25 PM EST Hayley Torres MD POINT OF CARE TEST O GILDA Performing Organization Address [facility] Co de Phone Number [facility] [place] [address] * POC, GLUCOSE (10/08/2024 5:54 PM EST) Glucometer, POC 198 65 - 199 mg/dL 10/08/2024 5:54 PM EST [facility] Comment:Supplemental ranges: <140 mg/dL before meals <180 mg/dL all other times of the day. Blood CAPILLARY BLOOD / Unknown 10/08/2024 5:54 PM EST 10/08/2024 5:54 PM EST Hayley Torres MD POINT OF CARE TEST O GILDA Performing Organization Address City/[facility]/ZIP Co de Phone Number [facility] [place] [address] * (ABNORMAL) POC, GLUCOSE (10/08/2024 4:08 PM EST) Glucometer, POC 281(H) 65 - 199 mg/dL 10/08/2024 4:08 PM EST [facility] Comment:Supplemental ranges: <140 mg/dL before meals <180 mg/dL all other times of the day. Blood CAPILLARY BLOOD / Unknown 10/08/2024 4:08 PM EST 10/08/2024 4:09 PM EST Hayley Torres MD POINT OF CARE TEST O GILDA Performing Organization Address City/[facility]/ZIP Co de Phone Number [facility] [place] [address] * POC, GLUCOSE (10/08/2024 12:44 PM EST) Glucometer, POC 146 65 - 199 mg/dL 10/08/2024 12:44 PM EST [facility] Comment:Supplemental ranges: <140 mg/dL before meals <180 mg/dL all other times of the day. Blood CAPILLARY BLOOD / Unknown 10/08/2024 12:44 PM EST 10/08/2024 12:44 PM EST Hayley Torres MD POINT OF CARE TEST O GILDA Performing Organization Address [facility] Co de Phone Number [facility] [place] [address] * POC, GLUCOSE (10/08/2024 8:30 AM EST) Glucometer, POC 172 65 - 199 mg/dL 10/08/2024 8:30 AM EST [facility] Comment:Supplemental ranges: <140 mg/dL before meals <180 mg/dL all other times of the day. Blood CAPILLARY BLOOD / Unknown 10/08/2024 8:30 AM EST 10/08/2024 8:30 AM EST Hayley Torres MD POINT OF CARE TEST O GILDA Performing Organization Address City/[facility]/ZIP Co de Phone Number [facility] [place] [address] * Vancomycin Level, Random (10/08/2024 5:59 AM EST) Vancomycin, Random 6.8 mg/L 2023 7:58 AM EST [facility] Comment:This level is for de termination of the patient's vancomycin gsrs-xfbzn-yvr-curve (AUC) value. Contact the inpatient pharmacy for interpretation. Blood VENOUS BLOOD SPECIMEN / Unknown Venipuncture / Unknown 10/08/2024 5:59 AM EST 10/08/2024 7:29 AM EST Hayley Torres MD CHEMISTRY ORDERABLES Performing Organization Address City/[facility]/ZIP Co de Phone Number [facility] [place] [address] * POC, GLUCOSE (10/08/2024 4:02 AM EST) [facility] Glucometer, POC 163 65 - 199 mg/dL 10/08/2024 4:02 AM EST [facility] Comment:Supplemental ranges: <140 mg/dL before meals <180 mg/dL all other times of the day. Blood CAPILLARY BLOOD / Unknown 10/08/2024 4:02 AM EST 10/08/2024 4:02 AM EST Hayley Torres MD POINT OF CARE TEST O RDERABLES Performing Organization Address [facility] Co de Phone Number [facility] [place] [address] * (ABNORMAL) CBC (with Diff) (10/08/2024 12:08 AM EST) White Blood Cell 10.35(H) 4.00 - 9.50 x10(3)/mc L 10/08/2024 12:29 AM EST [facility] Red Blood Cell 3.53(L) 4.58 - 5.54 x10(6)/mc L 10/08/2024 12:29 AM EST [facility] Hemoglobin 10.2(L) 13.7 - 16.5 g/dL 10/08/2024 12:29 AM EST [facility] Hematocrit 31.7(L) 40.5 - 48.5 % [...] Neutrophil % 60.9 % 10/08/2024 12:29 AM [facility] Neutrophil Absolute (ANC) - Automated 6.30(H) 1.70 [...] - 0.90 x10(3)/mc L 10/08/2024 12:29 AM EST [facility] Eos % 1.7 % 10/08/2024 12:29 AM EST [facility] Eos Absolute 0.18 0.00 - 0.40 x10(3)/mc L 10/08/2024 12:29 AM EST [facility] Basophil % 1.0 % 10/08/2024 12:29 [...] MD HEMATOLOGY ORDERABLE S Performing Organization Address City/State/[facility] Co de Phone Number [facility] [place] [address] * (ABNORMAL) Basic Metabolic Panel (10/08/2024 12:08 [...] 118 mL/min/1. 73 m?? 10/08/2024 12:50 AM [facility] [...] AM EST Hayley Torres MD CHEMISTRY ORDERABLES [facility] [place] [address] * Phosphorus (10/08/2024 12:08 AM EST) Phosphorus 3.4 2.5 - 4.5 mg/dL 10/08/2024 12:50 AM EST [facility] Blood VENOUS BLOOD SPECIMEN / Unknown Venipuncture / Unknown 10/08/2024 12:08 AM EST 10/08/2024 12:23 AM EST Hayley Torres MD CHEMISTRY ORDERABLES Performing Organization Address [facility]/ZIP Co de Phone Number [facility] [place] [address] * Magnesium (10/08/2024 12:08 AM EST) Magnesium 0.85 0.69 - 1.07 mMol/L 10/08/2024 12:50 AM EST [facility] Blood VENOUS BLOOD SPECIMEN / Unknown Venipuncture / Unknown 10/08/2024 12:08 AM EST 10/08/2024 12:23 AM EST Hayley Torres MD CHEMISTRY ORDERABLES Performing Organization Address [facility] Co de Phone Number [facility] [place] [address] * CK (10/08/2024 12:08 AM EST) Creatine Kinase 24 0 - 200 unit/L 10/08/2024 12:50 AM EST [facility] Blood VENOUS BLOOD SPECIMEN / Unknown Venipuncture / Unknown 10/08/2024 12:08 AM EST 10/08/2024 12:23 AM EST Hayley Torres MD CHEMISTRY ORDERABLES Performing Organization Address [facility] Co de Phone Number [facility] [place] [address] * POC, GLUCOSE (10/08/2024 12:05 AM EST) Glucometer, POC 100 65 - 199 mg/dL 10/08/2024 12:05 AM EST [facility] Comment:Supplemental ranges: <140 mg/dL before meals <180 mg/dL all other times of the day. Blood CAPILLARY BLOOD / Unknown 10/08/2024 12:05 AM EST 10/08/2024 12:05 AM EST Hayley Torres MD POINT OF CARE TEST O RDERABLES Performing Organization Address [facility] Co de Phone Number [facility] [place] [address] * POC, GLUCOSE (10/07/2024 8:29 PM EST) Glucometer, POC 107 65 - 199 mg/dL 10/07/2024 8:30 PM EST [facility] Comment:Supplemental ranges: <140 mg/dL before meals <180 mg/dL all other times of the day. Blood CAPILLARY BLOOD / Unknown 10/07/2024 8:29 PM EST 10/07/2024 8:30 PM EST Hayley Torres MD POINT OF CARE TEST O RDERAHERNANDEZ Performing Organization Address [facility] de Phone Number [facility] [place] [address] * POC, GLUCOSE (10/07/2024 4:33 PM EST) Glucometer, POC 129 65 - 199 mg/dL 10/07/2024 4:33 PM EST [facility] Comment:Supplemental ranges: <140 mg/dL before meals <180 mg/dL all other times of the day. Blood CAPILLARY BLOOD / Unknown 10/07/2024 4:33 PM EST 10/07/2024 4:34 PM EST Hayley Torres MD POINT OF CARE TEST O RDERAHERNANDEZ Performing Organization Address [facility] Co de Phone Number [facility] [place] [address] * (ABNORMAL) POC, GLUCOSE (10/07/2024 10:58 AM EST) Glucometer, POC 221(H) 65 - 199 mg/dL 10/07/2024 10:59 AM EST [facility] Comment:Supplemental ranges: <140 mg/dL before meals <180 mg/dL all other times of the day. Blood CAPILLARY BLOOD / Unknown 10/07/2024 10:58 AM EST 10/07/2024 10:59 AM EST Hayley Torres MD POINT OF CARE TEST O GILDA Performing Organization Address [facility] Co de Phone Number [facility] [place] [address] * (ABNORMAL) POC, GLUCOSE (10/07/2024 7:42 AM EST) Glucometer, POC 201(H) 65 - 199 mg/dL 10/07/2024 7:42 AM EST [facility] Comment:Supplemental ranges: <140 mg/dL before meals <180 mg/dL all other times of the day. Blood CAPILLARY BLOOD / Unknown 10/07/2024 7:42 AM EST 10/07/2024 7:43 AM EST Hayley Torres MD POINT OF CARE TEST O GILDA Performing Organization Address [facility] Co de Phone Number [facility] [place] [address] * POC, GLUCOSE (10/07/2024 3:58 AM EST) Glucometer, POC 150 65 - 199 mg/dL 10/07/2024 3:58 AM EST [facility] Comment:Supplemental ranges: <140 mg/dL before meals <180 mg/dL all other times of the day. Blood CAPILLARY BLOOD / Unknown 10/07/2024 3:58 AM EST 10/07/2024 3:58 AM EST Hayley Torres MD POINT OF CARE TEST O GILDA Performing Organization Address City/[facility] Co de Phone Number [facility] [place] [address] * (ABNORMAL) CBC (with Diff) (10/07/2024 12:06 AM EST) White Blood Cell 11.27(H) 4.00 [...] EST Hayley Torres MD HEMATOLOGY ORDERABLE S [facility] [place] [address] * (ABNORMAL) Basic Metabolic Panel (10/07/2024 12:06 [...] 22 - 31 mMol/L 10/07/2024 12:40 AM [facility] Anion Gap 10 5 - 15 mMol/L 10/07/2024 12:40 [address] [facility] Calcium 9.0 8.5 - 10.5 mg/dL 10/07/2024 12:40 [address] [facility] Est Glomerular Filtration Rate - Male 117 mL/min/1. 73 m?? 10/07/2024 12:40 AM [facility] [...] AM EST Hayley Torres MD CHEMISTRY ORDERABLES [facility] [place] [address] * Phosphorus (10/07/2024 12:06 AM EST) Phosphorus 4.2 2.5 - 4.5 mg/dL 10/07/2024 12:40 AM EST [facility] Blood VENOUS BLOOD SPECIMEN / Unknown Venipuncture / Unknown 10/07/2024 12:06 AM EST 10/07/2024 12:11 AM EST Hayley Torres MD CHEMISTRY ORDERABLES Performing Organization Address City/[facility]/ZIP Co de Phone Number [facility] [place] [address] * Magnesium (10/07/2024 12:06 AM EST) Magnesium 0.85 0.69 - 1.07 mMol/L 10/07/2024 12:40 AM EST [facility] Blood VENOUS BLOOD SPECIMEN / Unknown Venipuncture / Unknown 10/07/2024 12:06 AM EST 10/07/2024 12:11 AM EST Hayley Torres MD CHEMISTRY ORDERABLES Performing Organization Address [facility] Co de Phone Number [facility] [place] [address] * POC, GLUCOSE (10/07/2024 12:04 AM EST) Glucometer, POC 149 65 - 199 mg/dL 10/07/2024 12:04 AM EST [facility] Comment:Supplemental ranges: <140 mg/dL before meals <180 mg/dL all other times of the day. Blood CAPILLARY BLOOD / Unknown 10/07/2024 12:04 AM EST 10/07/2024 12:05 AM EST Hayley Torres MD POINT OF CARE TEST O RDERABLES Performing Organization Address City/[facility]/ZIP Co de Phone Number [facility] [place] [address] * POC, GLUCOSE (10/06/2024 7:24 PM EST) Glucometer, POC 151 65 - 199 mg/dL 10/06/2024 7:24 PM EST [facility] Comment:Supplemental ranges: <140 mg/dL before meals <180 mg/dL all other times of the day. Blood CAPILLARY BLOOD / Unknown 10/06/2024 7:24 PM EST 10/06/2024 7:24 PM EST Hayley Torres MD POINT OF CARE TEST O GILDA Performing Organization Address [facility] Co de Phone Number [facility] [place] [address] * POC, GLUCOSE (10/06/2024 5:32 PM EST) Glucometer, POC 126 65 - 199 mg/dL 10/06/2024 5:32 PM EST [facility] Comment:Supplemental ranges: <140 mg/dL before meals <180 mg/dL all other times of the day. Blood CAPILLARY BLOOD / Unknown 10/06/2024 5:32 PM EST 10/06/2024 5:32 PM EST Hayley Torres MD POINT OF CARE TEST O GILDA Performing Organization Address City/[facility] Co de Phone Number [facility] [place] [address] * XR PICC Placement Over 5 Years with Imaging Guidance (IV Team) (10/06/2024 3:04 PM EST) WORKSTATION ID [id number] RAD Anatomical Region Laterality Modality N/A Radio [...] who have questions please contact the health patient care specialist that requested your imaging first. ? Electronically signed by: Charles Hamilton MD, [facility] ??([phone]), at 10/06/2024 3:43 PM Narrative 10/06/2024 3:43 PM EST EXAMINATION: XR [...] patients who have questions please contactthe health patient care specialist that requested your imaging first. Electronically signed by: Charles Hamilton MD, [facility]([phone]), at 10/06/2024 3:43 PM Haylye Torres MD IMG FLUORO ORDERABLE S * Place PICC Line: Contact Vascular Access Page [phone] Extremity to exclude: No restrictions; Is PICC [...] to the planned procedure. Hand Hygiene: The payment manager did perform hand hygiene prior to line insertion. Catheter type: PICC Lot number: [id number] Procedure Technique: Skin was prepped with chlorhexidine. [...] * POC, GLUCOSE (10/06/2024 12:12 PM EST) Glucometer, POC 137 65 - 199 mg/dL 10/06/2024 12:12 PM EST [facility] Comment:Supplemental ranges: <140 mg/dL before meals <180 mg/dL all other times of the day. Blood CAPILLARY BLOOD / Unknown 10/06/2024 12:12 PM EST 10/06/2024 12:12 PM EST Hayley Torres MD POINT OF CARE TEST O GILDA Performing Organization Address [facility] Co de Phone Number [facility] [place] [address] * (ABNORMAL) POC, GLUCOSE (10/06/2024 7:34 AM EST) Glucometer, POC 209(H) 65 - 199 mg/dL 10/06/2024 7:34 AM EST [facility] Comment:Supplemental ranges: <140 mg/dL before meals <180 mg/dL all other times of the day. Blood CAPILLARY BLOOD / Unknown 10/06/2024 7:34 AM EST 10/06/2024 7:34 AM EST Hayley Torres MD POINT OF CARE TEST O RDERAHERNANDEZ Performing Organization Address City/[facility]/ZIP Co de Phone Number [facility] [place] [address] * POC, GLUCOSE (10/06/2024 3:29 AM EST) Glucometer, POC 151 65 - 199 mg/dL 10/06/2024 3:29 AM EST [facility] Comment:Supplemental ranges: <140 mg/dL before meals <180 mg/dL all other times of the day. Blood CAPILLARY BLOOD / Unknown 10/06/2024 3:29 AM EST 10/06/2024 3:29 AM EST Hayley Torres MD POINT OF CARE TEST O RDERABLES Performing Organization Address City/[facility]/ZIP Co de Phone Number [facility] [place] [address] * Vancomycin Level, Random (10/06/2024 12:03 AM EST) Pathologist [facility] Vancomycin, Random 20.5 mg/L 2023 9:00 AM EST [facility] Comment:This level is for de termination of the patient's vancomycin fkdc-kqwyz-eyh-curve (AUC) value. Contact the inpatient pharmacy for interpretation. Blood VENOUS BLOOD SPECIMEN / Unknown Venipuncture / Unknown 10/06/2024 12:03 AM EST 10/06/2024 12:15 AM EST Hayley Torres MD CHEMISTRY ORDERABLES Performing Organization Address City/[facility]/ZIP Co de Phone Number [facility] [place] [address] * (ABNORMAL) CBC (with Diff) (10/06/2024 12:03 AM EST) Pathologist [facility] White Blood Cell 12.26(H) 4.00 - 9.50 [...] Eos % 1.3 % 10/06/2024 12:19 AM EST [facility] Eos Absolute 0.16 0.00 - 0.40 x10(3)/mc L 10/06/2024 12:19 AM EST [facility] Basophil % 0.5 % 10/06/2024 12:19 [...] EST Hayley Torres MD HEMATOLOGY ORDERABLE S [facility] [place] [address] * Basic Metabolic Panel (10/06/2024 12:03 AM [...] AM EST Hayley Torres MD CHEMISTRY ORDERABLES [facility] [place] [address] * Phosphorus (10/06/2024 12:03 AM EST) Phosphorus 4.3 2.5 - 4.5 mg/dL 10/06/2024 12:44 AM [facility] Blood VENOUS BLOOD SPECIMEN / Unknown Venipuncture / Unknown 10/06/2024 12:03 AM EST 10/06/2024 12:15 AM EST Hayley Torres MD CHEMISTRY ORDERABLES [facility] [place] [address] * Magnesium (10/06/2024 12:03 AM EST) Magnesium 0.83 0.69 - 1.07 mMol/L 10/06/2024 12:44 AM EST [facility] Blood VENOUS BLOOD SPECIMEN / Unknown Venipuncture / Unknown 10/06/2024 12:03 AM EST 10/06/2024 12:15 AM EST Hayley Torres MD CHEMISTRY ORDERABLES Performing Organization Address City/[facility]/ZIP Co de Phone Number [facility] [place] [address] * POC, GLUCOSE (10/06/2024 12:02 AM EST) Glucometer, POC 98 65 - 199 mg/dL 10/06/2024 12:02 AM EST [facility] Comment:Supplemental ranges: <140 mg/dL before meals <180 mg/dL all other times of the day. Blood CAPILLARY BLOOD / Unknown 10/06/2024 12:02 AM EST 10/06/2024 12:02 AM EST Hayley Torres MD POINT OF CARE TEST O RDERABLES Performing Organization Address [facility]/ZIP Co de Phone Number [facility] [place] [address] * POC, GLUCOSE (10/05/2024 7:22 PM EST) Glucometer, POC 186 65 - 199 mg/dL 10/05/2024 7:23 PM EST [facility] Comment:Supplemental ranges: <140 mg/dL before meals <180 mg/dL all other times of the day. Blood CAPILLARY BLOOD / Unknown 10/05/2024 7:22 PM EST 10/05/2024 7:23 PM EST Hayley Torres MD POINT OF CARE TEST O RDERABLES [facility] [place] [address] * POC, GLUCOSE (10/05/2024 5:35 PM EST) Glucometer, POC 177 65 - 199 mg/dL 10/05/2024 5:35 PM EST [facility] Comment:Supplemental ranges: <140 mg/dL before meals <180 mg/dL all other times of the day. Blood CAPILLARY BLOOD / Unknown 10/05/2024 5:35 PM EST 10/05/2024 5:35 PM EST Hayley Torres MD POINT OF CARE TEST O GILDA Performing Organization Address City/[facility]/ZIP Co de Phone Number [facility] [place] [address] * POC, GLUCOSE (10/05/2024 3:57 PM EST) Glucometer, POC 141 65 - 199 mg/dL 10/05/2024 3:57 PM EST [facility] Comment:Supplemental ranges: <140 mg/dL before meals <180 mg/dL all other times of the day. Blood CAPILLARY BLOOD / Unknown 10/05/2024 3:57 PM EST 10/05/2024 3:57 PM EST Hayley Torres MD POINT OF CARE TEST O GILDA Performing Organization Address City/[facility]/ZIP Co de Phone Number [facility] [place] [address] * POC, GLUCOSE (10/05/2024 11:50 AM EST) Glucometer, POC 134 65 - 199 mg/dL 10/05/2024 11:50 AM EST [facility] Comment:Supplemental ranges: <140 mg/dL before meals <180 mg/dL all other times of the day. Blood CAPILLARY BLOOD / Unknown 10/05/2024 11:50 AM EST 10/05/2024 11:50 AM EST Hayley Torres MD POINT OF CARE TEST O RDERAHERNANDEZ Performing Organization Address [facility] Co de Phone Number [facility] [place] [address] * POC, GLUCOSE (10/05/2024 7:51 AM EST) Glucometer, POC 114 65 - 199 mg/dL 10/05/2024 7:51 AM EST [facility] Comment:Supplemental ranges: <140 mg/dL before meals <180 mg/dL all other times of the day. Blood CAPILLARY BLOOD / Unknown 10/05/2024 7:51 AM EST 10/05/2024 7:51 AM EST Hayley Torres MD POINT OF CARE TEST O GILDA Performing Organization Address [facility] de Phone Number [facility] [place] [address] * POC, GLUCOSE (10/05/2024 4:18 AM EST) Glucometer, POC 147 65 - 199 mg/dL 10/05/2024 4:18 AM EST [facility] Comment:Supplemental ranges: <140 mg/dL before meals <180 mg/dL all other times of the day. Blood CAPILLARY BLOOD / Unknown 10/05/2024 4:18 AM EST 10/05/2024 4:18 AM EST Hayley Torres MD POINT OF CARE TEST O GILDA Performing Organization Address [facility] Co de Phone Number [facility] [place] [address] * (ABNORMAL) CBC (with Diff) (10/04/2024 11:50 PM EST) White Blood Cell 12.73(H) 4.00 - 9.50 x10(3)/mc L 10/05/2024 12:10 AM EST [facility] Red Blood Cell 3.45(L) 4.58 - [...] EST Hayley Torres MD HEMATOLOGY ORDERABLE S [facility] [place] [address] * (ABNORMAL) Basic Metabolic Panel (10/04/2024 11:50 [...] 22 - 31 mMol/L 10/05/2024 12:35 AM [facility] Anion Gap 11 5 - 15 mMol/L 10/05/2024 12:35 AM [facility] Calcium 9.0 8.5 - 10.5 mg/dL 10/05/2024 12:35 AM [facility] Est Glomerular Filtration Rate - Male 121 mL/min/1. 73 m?? 10/05/2024 12:35 AM [facility] [...] AM EST Hayley Torres MD CHEMISTRY ORDERABLES [facility] [place] [address] * Phosphorus (10/04/2024 11:50 PM EST) Phosphorus 4.2 2.5 - 4.5 mg/dL 10/05/2024 12:35 AM [facility] Blood VENOUS BLOOD SPECIMEN / Unknown Venipuncture / Unknown 10/04/2024 11:50 PM EST 10/05/2024 12:03 AM EST Hayley Torres MD CHEMISTRY ORDERABLES [facility] [place] [address] * Magnesium (10/04/2024 11:50 PM EST) [facility] Magnesium 0.89 0.69 - 1.07 mMol/L 10/05/2024 12:35 AM [facility] Blood VENOUS BLOOD SPECIMEN / Unknown Venipuncture / Unknown 10/04/2024 11:50 PM EST 10/05/2024 12:03 AM EST Hayley Torres MD CHEMISTRY ORDERABLES Performing Organization Address City/[facility]/ZIP Co de Phone Number [facility] [place] [address] * POC, GLUCOSE (10/04/2024 11:36 PM EST) [facility] Glucometer, POC 121 65 - 199 mg/dL 10/04/2024 11:36 PM EST [facility] Comment:Supplemental ranges: <140 mg/dL before meals <180 mg/dL all other times of the day. Blood CAPILLARY BLOOD / Unknown 10/04/2024 11:36 PM EST 10/04/2024 11:36 PM EST Hayley Torres MD POINT OF CARE TEST O RDERABLES [facility] [place] [address] * POC, GLUCOSE (10/04/2024 7:32 PM EST) [facility] Glucometer, POC 163 65 - 199 mg/dL 10/04/2024 7:32 PM EST [facility] Comment:Supplemental ranges: <140 mg/dL before meals <180 mg/dL all other times of the day. Blood CAPILLARY BLOOD / Unknown 10/04/2024 7:32 PM EST 10/04/2024 7:32 PM EST Hayley Torres MD POINT OF CARE TEST O RDERABLES Performing Organization Address [facility] Co de Phone Number [facility] [place] [address] * EKG 12 Lead (10/04/2024 7:14 PM EST) Ventricular rate 81 BPM MUSE SYSTEM Atrial Rate 81 BPM MUSE SYSTEM P-R Interval 174 ms MUSE SYSTEM QRS Duration 112 ms MUSE SYSTEM Q-T Interval 422 ms MUSE SYSTEM QTC Calculated (Bezet) 490 ms MUSE SYSTEM Calculated P [place] 34 degrees MUSE SYSTEM Calculated R [place] 11 degrees MUSE SYSTEM Calculated T [place] 59 degrees MUSE SYSTEM INTERPRETATION Normal sinus rhythm Cannot rule out Inferior infarct , age undetermined Nonspecific T wave abnormality Borderline ECG When compared with ECG of 29-MAY-2024 14:51, Nonspecific T wave abnormality now evident in Lateral leads Confirmed by MD Robert, Deandre Guadarrama ([id number]) on 10/05/2024 3:35:42 PM MUSE SYSTEM 10/04/2024 7:14 PM EST 10/05/2024 3:35 PM EST Hayley Torres MD ECG ORDERABLES Performing Organization Address [facility] Co de Phone Number MUSE SYSTEM * POC, GLUCOSE (10/04/2024 5:07 PM EST) Glucometer, POC 95 65 - 199 mg/dL 10/04/2024 5:07 PM EST [facility] Comment:Supplemental ranges: <140 mg/dL before meals <180 mg/dL all other times of the day. Blood CAPILLARY BLOOD / Unknown 10/04/2024 5:07 PM EST 10/04/2024 5:07 PM EST Hayley Torres MD POINT OF CARE TEST O RDERABLES Performing Organization Address City/[facility] Co de Phone Number [facility] [place] [address] * POC, GLUCOSE (10/04/2024 4:49 PM EST) Glucometer, POC 70 65 - 199 mg/dL 10/04/2024 4:50 PM EST [facility] Comment:Supplemental ranges: <140 mg/dL before meals <180 mg/dL all other times of the day. Blood CAPILLARY BLOOD / Unknown 10/04/2024 4:49 PM EST 10/04/2024 4:50 PM EST Hayley Torres MD POINT OF CARE TEST O RDERAHERNANDEZ Performing Organization Address [facility] Co de Phone Number [facility] [place] [address] * POC, GLUCOSE (10/04/2024 11:49 AM EST) Glucometer, POC 93 65 - 199 mg/dL 10/04/2024 11:49 AM EST [facility] Comment:Supplemental ranges: <140 mg/dL before meals <180 mg/dL all other times of the day. Blood CAPILLARY BLOOD / Unknown 10/04/2024 11:49 AM EST 10/04/2024 11:49 AM EST Hayley Torres MD POINT OF CARE TEST O RDTYESHA Performing Organization Address City/[facility]/ZIP Co de Phone Number [facility] [place] [address] * Vancomycin, trough (10/04/2024 7:53 AM EST) Vancomycin, Trough 19.8 10.0 - 20.0 mg/L 10/04/2024 9:16 AM EST [facility] Comment: Varies according to infection source. Blood VENOUS BLOOD SPECIMEN / Unknown Venipuncture / Unknown 10/04/2024 7:53 AM EST 10/04/2024 8:11 AM EST Hayley Torres MD CHEMISTRY ORDERABLES Performing Organization Address [facility] Co de Phone Number [facility] [place] [address] * POC, GLUCOSE (10/04/2024 7:51 AM EST) Glucometer, POC 105 65 - 199 mg/dL 10/04/2024 7:52 AM EST [facility] Comment:Supplemental ranges: <140 mg/dL before meals <180 mg/dL all other times of the day. Blood CAPILLARY BLOOD / Unknown 10/04/2024 7:51 AM EST 10/04/2024 7:52 AM EST Hayley Torres MD POINT OF CARE TEST O RDERABLES Performing Organization Address [facility] Co de Phone Number [facility] [place] [address] * POC, GLUCOSE (10/04/2024 3:53 AM EST) Glucometer, POC 90 65 - 199 mg/dL 10/04/2024 3:53 AM EST [facility] Comment:Supplemental ranges: <140 mg/dL before meals <180 mg/dL all other times of the day. Blood CAPILLARY BLOOD / Unknown 10/04/2024 3:53 AM EST 10/04/2024 3:53 AM EST Hayley Torres MD POINT OF CARE TEST O GILDA Performing Organization Address [facility] Co de Phone Number [facility] [place] [address] * (ABNORMAL) CBC (with Diff) (10/04/2024 12:08 AM EST) White Blood Cell 12.58(H) 4.00 - 9.50 x10(3)/mc L 10/04/2024 12:51 AM [facility] Red Blood Cell 3.28(L) 4.58 - 5.54 x10(6)/mc L 10/04/2024 12:51 AM [facility] Hemoglobin 9.4(L) 13.7 - 16.5 g/dL 10/04/2024 12:51 AM [facility] Hematocrit 28.8(L) 40.5 - 48.5 % 10/04/2024 12:51 AM [facility] Mean Cell Volume 87.8 [...] EST Hayley Torres MD HEMATOLOGY ORDERABLE S [facility] [place] [address] * (ABNORMAL) Basic Metabolic Panel (10/04/2024 12:08 [...] 98 - 107 mMol/L 10/04/2024 12:53 AM [facility] AM EST Hayley Torres MD CHEMISTRY ORDERABLES [facility] [place] [address] * Phosphorus (10/04/2024 12:08 AM EST) Phosphorus 3.7 2.5 - 4.5 mg/dL 10/04/2024 12:53 AM EST [facility] Blood VENOUS BLOOD SPECIMEN / Unknown Venipuncture / Unknown 10/04/2024 12:08 AM EST 10/04/2024 12:15 AM EST Hayley Torres MD CHEMISTRY ORDERABLES [facility] [place] [address] * Magnesium (10/04/2024 12:08 AM EST) Magnesium 0.89 0.69 - 1.07 mMol/L 10/04/2024 12:53 AM EST [facility] Blood VENOUS BLOOD SPECIMEN / Unknown Venipuncture / Unknown 10/04/2024 12:08 AM EST 10/04/2024 12:15 AM EST Hayley Torres MD CHEMISTRY ORDERABLES Performing Organization Address [facility]/ZIP Co de Phone Number [facility] [place] [address] * POC, GLUCOSE (10/04/2024 12:01 AM EST) Glucometer, POC 132 65 - 199 mg/dL 10/04/2024 12:02 AM EST [facility] Comment:Supplemental ranges: <140 mg/dL before meals <180 mg/dL all other times of the day. Blood CAPILLARY BLOOD / Unknown 10/04/2024 12:01 AM EST 10/04/2024 12:02 AM EST Hayley Torres MD POINT OF CARE TEST O RDERABLES Performing Organization Address City/[facility]/ZIP Co de Phone Number [facility] [place] [address] * POC, GLUCOSE (10/03/2024 7:56 PM EST) Glucometer, POC 123 65 - 199 mg/dL 10/03/2024 7:56 PM EST [facility] Comment:Supplemental ranges: <140 mg/dL before meals <180 mg/dL all other times of the day. Blood CAPILLARY BLOOD / Unknown 10/03/2024 7:56 PM EST 10/03/2024 7:57 PM EST Hayley Torres MD POINT OF CARE TEST O DIMITRIERAHERNANDEZ Performing Organization Address City/[facility] Co de Phone Number [facility] [place] [address] * POC, GLUCOSE (10/03/2024 5:29 PM EST) Glucometer, POC 182 65 - 199 mg/dL 10/03/2024 5:30 PM EST [facility] Comment:Supplemental ranges: <140 mg/dL before meals <180 mg/dL all other times of the day. Blood CAPILLARY BLOOD / Unknown 10/03/2024 5:29 PM EST 10/03/2024 5:30 PM EST Hayley Torres MD POINT OF CARE TEST O GILDA Performing Organization Address [facility] Co de Phone Number [facility] [place] [address] * POC, GLUCOSE (10/03/2024 12:54 PM EST) Glucometer, POC 128 65 - 199 mg/dL 10/03/2024 12:54 PM EST [facility] Comment:Supplemental ranges: <140 mg/dL before meals <180 mg/dL all other times of the day. Blood CAPILLARY BLOOD / Unknown 10/03/2024 12:54 PM EST 10/03/2024 12:54 PM EST Hayley Torres MD POINT OF CARE TEST O GILDA [facility] [place] [address] * POC, GLUCOSE (10/03/2024 7:59 AM EST) Glucometer, POC 115 65 - 199 mg/dL 10/03/2024 7:59 AM EST [facility] Comment:Supplemental ranges: <140 mg/dL before meals <180 mg/dL all other times of the day. Blood CAPILLARY BLOOD / Unknown 10/03/2024 7:59 AM EST 10/03/2024 7:59 AM EST Hayley Torres MD POINT OF CARE TEST O GILDA Performing Organization Address [facility] de Phone Number [facility] [place] [address] * POC, GLUCOSE (10/03/2024 5:32 AM EST) Glucometer, POC 119 65 - 199 mg/dL 10/03/2024 5:32 AM EST [facility] Comment:Supplemental ranges: <140 mg/dL before meals <180 mg/dL all other times of the day. Blood CAPILLARY BLOOD / Unknown 10/03/2024 5:32 AM EST 10/03/2024 5:32 AM EST Hayley Torres MD POINT OF CARE TEST O GILDA Performing Organization Address [facility] Co de Phone Number [facility] [place] [address] * POC, GLUCOSE (10/03/2024 4:16 AM EST) Glucometer, POC 152 65 - 199 mg/dL 10/03/2024 4:17 AM EST [facility] Comment:Supplemental ranges: <140 mg/dL before meals <180 mg/dL all other times of the day. Blood CAPILLARY BLOOD / Unknown 10/03/2024 4:16 AM EST 10/03/2024 4:17 AM EST Hayley Torres MD POINT OF CARE TEST O RDERAHERNANDEZ [facility] [place] [address] * (ABNORMAL) POC, GLUCOSE (10/03/2024 2:02 AM EST) Glucometer, POC 225(H) 65 - 199 mg/dL 10/03/2024 2:02 AM EST [facility] Comment:Supplemental ranges: <140 mg/dL before meals <180 mg/dL all other times of the day. Blood CAPILLARY BLOOD / Unknown 10/03/2024 2:02 AM EST 10/03/2024 2:02 AM EST Hayley Torres MD POINT OF CARE TEST O GILDA [facility] [place] [address] * (ABNORMAL) CBC (with Diff) (10/03/2024 12:27 AM EST) [facility] Signature White Blood Cell 15.33(H) 4.00 - 9.50 [...] Basophil % 0.4 % 10/03/2024 12:51 AM EST [facility] Baso Absolute 0.06 0.00 - [...] MD HEMATOLOGY ORDERABLE S Performing Organization Address City/State/[facility] Co de Phone Number [facility] [place] [address] * (ABNORMAL) Basic Metabolic Panel (10/03/2024 12:27 AM EST) Glucose 208(H) 65 - 199 mg/dL 10/03/2024 1:14 AM [facility] 5 - 15 mMol/L 10/03/2024 1:14 AM EST [facility] Calcium 8.4(L) 8.5 - 10.5 mg/dL 10/03/2024 1:14 AM EST [facility] Est Glomerular Filtration Rate - Male 124 mL/min/1. 73 m?? 10/03/2024 1:14 AM EST [facility] Comment: This patient's estimated GFR [...] Torres MD CHEMISTRY ORDERABLES Performing Organization Address City/[facility]/ZIP Co de Phone Number [facility] [place] [address] * Phosphorus (10/03/2024 12:27 AM EST) Phosphorus 3.5 2.5 - 4.5 mg/dL 10/03/2024 1:14 AM EST [facility] Blood VENOUS BLOOD SPECIMEN / Unknown Venipuncture / Unknown 10/03/2024 12:27 AM EST 10/03/2024 12:47 AM EST Hayley Torres MD CHEMISTRY ORDERABLES [facility] [place] [address] * Magnesium (10/03/2024 12:27 AM EST) Magnesium 0.83 0.69 - 1.07 mMol/L 10/03/2024 1:14 AM EST [facility] Blood VENOUS BLOOD SPECIMEN / Unknown Venipuncture / Unknown 10/03/2024 12:27 AM EST 10/03/2024 12:47 AM EST Hayley Torres MD CHEMISTRY ORDERABLES [facility] [place] [address] * (ABNORMAL) POC, GLUCOSE (10/03/2024 12:13 AM EST) Glucometer, POC 255(H) 65 - 199 mg/dL 10/03/2024 12:14 AM EST [facility] Comment:Supplemental ranges: <140 mg/dL before meals <180 mg/dL all other times of the day. Blood CAPILLARY BLOOD / Unknown 10/03/2024 12:13 AM EST 10/03/2024 12:14 AM EST Hayley Torres MD POINT OF CARE TEST O RDERABLES Performing Organization Address City/[facility]/ZIP Co de Phone Number [facility] [place] [address] * POC, GLUCOSE (10/02/2024 8:17 PM EST) Glucometer, POC 177 65 - 199 mg/dL 10/02/2024 8:17 PM EST [facility] Comment:Supplemental ranges: <140 mg/dL before meals <180 mg/dL all other times of the day. Blood CAPILLARY BLOOD / Unknown 10/02/2024 8:17 PM EST 10/02/2024 8:17 PM EST Hayley Torres MD POINT OF CARE TEST O RDERABLES [facility] [place] [address] * POC, GLUCOSE (10/02/2024 6:22 PM EST) Glucometer, POC 172 65 - 199 mg/dL 10/02/2024 6:22 PM EST [facility] Comment:Supplemental ranges: <140 mg/dL before meals <180 mg/dL all other times of the day. Blood CAPILLARY BLOOD / Unknown 10/02/2024 6:22 PM EST 10/02/2024 6:22 PM EST Hayley Torres MD POINT OF CARE TEST O GILDA Performing Organization Address City/[facility]/ZIP Co de Phone Number [facility] [place] [address] * POC, GLUCOSE (10/02/2024 5:01 PM EST) Glucometer, POC 104 65 - 199 mg/dL 10/02/2024 5:01 PM EST [facility] Comment:Supplemental ranges: <140 mg/dL before meals <180 mg/dL all other times of the day. Blood CAPILLARY BLOOD / Unknown 10/02/2024 5:01 PM EST 10/02/2024 5:01 PM EST Hayley Torres MD POINT OF CARE TEST O GILDA Performing Organization Address City/[facility]/ZIP Co de Phone Number [facility] [place] [address] * POC, GLUCOSE (10/02/2024 3:05 PM EST) Glucometer, POC 113 65 - 199 mg/dL 10/02/2024 3:06 PM EST [facility] Comment:Supplemental ranges: <140 mg/dL before meals <180 mg/dL all other times of the day. Blood CAPILLARY BLOOD / Unknown 10/02/2024 3:05 PM EST 10/02/2024 3:06 PM EST Hayley Torres MD POINT OF CARE TEST O GILDA [facility] [place] [address] * POC, GLUCOSE (10/02/2024 11:12 AM EST) Glucometer, POC 146 65 - 199 mg/dL 10/02/2024 11:12 AM EST [facility] Comment:Supplemental ranges: <140 mg/dL before meals <180 mg/dL all other times of the day. Blood CAPILLARY BLOOD / Unknown 10/02/2024 11:12 AM EST 10/02/2024 11:12 AM EST Hayley Torres MD POINT OF CARE TEST O GILDA Performing Organization Address City/[facility]/ZIP Co de Phone Number [facility] [place] [place] [address] * POC, GLUCOSE (10/02/2024 8:12 AM EST) Glucometer, POC 131 65 - 199 mg/dL 10/02/2024 8:12 AM EST [facility] Comment:Supplemental ranges: <140 mg/dL before meals <180 mg/dL all other times of the day. Blood CAPILLARY BLOOD / Unknown 10/02/2024 8:12 AM EST 10/02/2024 8:12 AM EST Hayley Torres MD POINT OF CARE TEST O GILDA [facility] [place] [place] [address] * POC, GLUCOSE (10/02/2024 4:19 AM EST) Glucometer, POC 131 65 - 199 mg/dL 10/02/2024 4:19 AM EST [facility] Comment:Supplemental ranges: <140 mg/dL before meals <180 mg/dL all other times of the day. Blood CAPILLARY BLOOD / Unknown 10/02/2024 4:19 AM EST 10/02/2024 4:19 AM EST Hayley Torres MD POINT OF CARE TEST O RDERABLES [facility] [place] [address] * Phosphorus (10/02/2024 12:41 AM EST) Pathologist [facility] Phosphorus 4.1 2.5 - 4.5 mg/dL 10/02/2024 1:21 AM EST [facility] Blood VENOUS BLOOD SPECIMEN / Unknown Venipuncture / Unknown 10/02/2024 12:41 AM EST 10/02/2024 12:45 AM EST Hayley Torres MD CHEMISTRY ORDERABLES Performing Organization Address City/[facility]/ZIP Co de Phone Number [facility] [place] [place] [address] * Magnesium (10/02/2024 12:41 AM EST) Pathologist [facility] Magnesium 0.85 0.69 - 1.07 mMol/L 10/02/2024 1:21 AM EST [facility] Blood VENOUS BLOOD SPECIMEN / Unknown Venipuncture / Unknown 10/02/2024 12:41 AM EST 10/02/2024 12:45 AM EST Hayley Torres MD CHEMISTRY ORDERABLES [facility] [place] [place] [address] * (ABNORMAL) Basic Metabolic Panel (10/02/2024 12:41 AM EST) Glucose 113 65 - 199 mg/dL 10/02/2024 1:21 AM EST [facility] Comment:Glucose Concentratio n >=200 mg/dL plus symptoms is consistent with Diabetes Mellitus. Blood Urea Nitrogen 11 10 - 20 mg/dL 10/02/2024 1:21 AM EST [facility] Creatinine 0.49(L) 0.80 - 1.50 mg/dL 10/02/2024 1:21 AM EST [facility] Sodium 138 135 - 145 [...] 5 - 15 mMol/L 10/02/2024 1:21 AM [facility] Calcium 8.2(L) 8.5 - 10.5 mg/dL [...] AM EST Hayley Torres MD CHEMISTRY ORDERABLES [facility] [place] [place] [address] * (ABNORMAL) CBC (with Diff) (10/02/2024 12:41 [...] Eos % 1.6 % 10/02/2024 1:04 AM [facility] Eos Absolute 0.18 0.00 - 0.40 x10(3)/mc L 10/02/2024 1:04 AM [facility] Basophil % 0.8 % 10/02/2024 1:04 AM [facility] Baso Absolute 0.09 0.00 - 0.10 x10(3)/mc L 10/02/2024 1:04 AM [facility] Immature Gran % 9.7 % 1:04 AM [facility] Immature Gran Absolute 1.06(H) 0.00 - 0.04 x10(3)/mc L 10/02/2024 1:04 AM [facility] Blood VENOUS BLOOD SPECIMEN / Unknown Venipuncture / Unknown 10/02/2024 12:41 AM EST 10/02/2024 12:45 AM EST Hayley Torres MD HEMATOLOGY ORDERABLE S [facility] [place] [place] [address] * POC, GLUCOSE (10/02/2024 12:40 AM EST) Glucometer, POC 116 65 - 199 mg/dL 10/02/2024 12:41 AM [facility] Comment:Supplemental ranges: <140 mg/dL before meals <180 mg/dL all other times of the day. Blood CAPILLARY BLOOD / Unknown 10/02/2024 12:40 AM EST 10/02/2024 12:41 AM EST Hayley Torres MD POINT OF CARE TEST O GILDA Performing Organization Address City/[facility]/ZIP Co de Phone Number [facility] [place] [place] [address] * POC, GLUCOSE (10/01/2024 8:11 PM EST) Glucometer, POC 123 65 - 199 mg/dL 10/01/2024 8:11 PM EST [facility] Comment:Supplemental ranges: <140 mg/dL before meals <180 mg/dL all other times of the day. Blood CAPILLARY BLOOD / Unknown 10/01/2024 8:11 PM EST 10/01/2024 8:11 PM EST aHyley Torres MD POINT OF CARE TEST O GILDA Performing Organization Address City/[facility]/ZIP Co de Phone Number [facility] [place] [address] * POC, GLUCOSE (10/01/2024 6:00 PM EST) Glucometer, POC 112 65 - 199 mg/dL 10/01/2024 6:00 PM EST [facility] Comment:Supplemental ranges: <140 mg/dL before meals <180 mg/dL all other times of the day. Blood CAPILLARY BLOOD / Unknown 10/01/2024 6:00 PM EST 10/01/2024 6:00 PM EST Hayley Torres MD POINT OF CARE TEST O GILDA [facility] [place] [place] [address] * POC, GLUCOSE (10/01/2024 3:53 PM EST) Glucometer, POC 97 65 - 199 mg/dL 10/01/2024 3:53 PM EST [facility] Comment:Supplemental ranges: <140 mg/dL before meals <180 mg/dL all other times of the day. Blood CAPILLARY BLOOD / Unknown 10/01/2024 3:53 PM EST 10/01/2024 3:53 PM EST Hayley Torres MD POINT OF CARE TEST O GILDA Performing Organization Address City/[facility] Co de Phone Number [facility] [place] [address] * POC, GLUCOSE (10/01/2024 2:25 PM EST) Glucometer, POC 117 65 - 199 mg/dL 10/01/2024 2:25 PM EST [facility] Comment:Supplemental ranges: <140 mg/dL before meals <180 mg/dL all other times of the day. Blood CAPILLARY BLOOD / Unknown 10/01/2024 2:25 PM EST 10/01/2024 2:25 PM EST Hayley Torres MD POINT OF CARE TEST O GILDA Performing Organization Address [facility] Co de Phone Number [facility] [place] [address] * POC, GLUCOSE (10/01/2024 11:43 AM EST) Glucometer, POC 174 65 - 199 mg/dL 10/01/2024 11:43 AM EST [facility] Comment:Supplemental ranges: <140 mg/dL before meals <180 mg/dL all other times of the day. Blood CAPILLARY BLOOD / Unknown 10/01/2024 11:43 AM EST 10/01/2024 11:43 AM EST Hayley Torres MD POINT OF CARE TEST O GILDA Performing Organization Address City/[facility] Co de Phone Number [facility] [place] [address] * POC, GLUCOSE (10/01/2024 9:43 AM EST) Glucometer, POC 191 65 - 199 mg/dL 10/01/2024 9:43 AM EST [facility] Comment:Supplemental ranges: <140 mg/dL before meals <180 mg/dL all other times of the day. Blood CAPILLARY BLOOD / Unknown 10/01/2024 9:43 AM EST 10/01/2024 9:43 AM EST Hayley Torres MD POINT OF CARE TEST O GILDA Performing Organization Address City/[facility] Co de Phone Number [facility] [place] [address] * POC, GLUCOSE (10/01/2024 7:48 AM EST) Glucometer, POC 151 65 - 199 mg/dL 10/01/2024 7:48 AM EST [facility] Comment:Supplemental ranges: <140 mg/dL before meals <180 mg/dL all other times of the day. Blood CAPILLARY BLOOD / Unknown 10/01/2024 7:48 AM EST 10/01/2024 7:48 AM EST Hayley Torres MD POINT OF CARE TEST O GILDA Performing Organization Address [facility] Co de Phone Number [facility] [place] [address] * POC, GLUCOSE (10/01/2024 4:25 AM EST) Glucometer, POC 133 65 - 199 mg/dL 10/01/2024 4:26 AM EST [facility] Comment:Supplemental ranges: <140 mg/dL before meals <180 mg/dL all other times of the day. Blood CAPILLARY BLOOD / Unknown 10/01/2024 4:25 AM EST 10/01/2024 4:26 AM EST Hayley Torres MD POINT OF CARE TEST O RDERABLES [facility] [place] [address] * Phosphorus (10/01/2024 2:02 AM EST) Pathologist [facility] Phosphorus 3.9 2.5 - 4.5 mg/dL 10/01/2024 7:16 AM EST [facility] Blood VENOUS BLOOD SPECIMEN / Unknown Venipuncture / Unknown 10/01/2024 2:02 AM EST 10/01/2024 2:10 AM EST Hayley Torres MD CHEMISTRY ORDERABLES Performing Organization Address [facility]/ZIP Co de Phone Number [facility] [place] [address] * (ABNORMAL) Scan, Peripheral Blood (10/01/2024 2:02 AM EST) [facility] RBC Morphology Abnormal 10/01/2024 2:55 AM EST [facility] Platelet Estimate Increased(A) Normal 10/01 2:55 AM EST [facility] Polychromasia Present 10/01/2024 2:55 AM EST [facility] Platelet Clumps Present(A) (none) 2:55 AM EST [facility] Blood VENOUS BLOOD SPECIMEN / Unknown Venipuncture / Unknown 10/01/2024 2:02 AM EST 10/01/2024 2:10 AM EST Hayley Torres MD HEMATOLOGY ORDERABLE S Performing Organization Address City/[facility]/ZIP Co de Phone Number [facility] [place] [address] * Magnesium (10/01/2024 2:02 AM EST) Pathologist [facility] Magnesium 0.79 0.69 - 1.07 mMol/L 10/01/2024 2:41 AM EST [facility] Blood VENOUS BLOOD SPECIMEN / Unknown Venipuncture / Unknown 10/01/2024 2:02 AM EST 10/01/2024 2:10 AM EST Hayley Torres MD CHEMISTRY ORDERABLES [facility] [place] [address] * (ABNORMAL) Basic Metabolic Panel (10/01/2024 2:02 AM EST) Glucose 122 65 - 199 mg/dL 10/01/2024 2:41 AM [facility] Comment:Glucose Concentratio n >=200 mg/dL plus symptoms is consistent with Diabetes Mellitus. Blood Urea Nitrogen 10 10 - 20 mg/dL 10/01/2024 2:41 AM [facility] Creatinine 0.47(L) 0.80 - 1.50 mg/dL 10/01/2024 2:41 AM [facility] Sodium 138 135 - 145 mMol/L 10/01/2024 2:41 AM [facility] Potassium 3.9 3.5 - 5.0 mMol/L 10/01/2024 2:41 AM [facility] AM EST Hayley Torres MD CHEMISTRY ORDERABLES [facility] [place] [address] * (ABNORMAL) CBC (with Diff) (10/01/2024 2:02 [...] - 0.40 x10(3)/mc L 10/01/2024 2:55 AM EST [facility] Comment:This is an appended report. These results have been appended to a previously preliminary verified report. Basophil % 0.6 % 10/01/2024 2:55 AM EST [facility] Comment:This is an appended report. These results have been appended to a previously preliminary verified report. Baso Absolute 0.06 0.00 - 0.10 x10(3)/mc L 10/01/2024 2:55 AM EST [facility] Comment:This is an appended report. These results have been appended to a previously preliminary verified report. Immature Gran % 8.4 % 2:55 AM EST [facility] Comment:This is an appended report. These results have been appended to a previously preliminary verified report. Immature Gran Absolute 0.85(H) 0.00 - 0.04 x10(3)/mc L 10/01/2024 2:55 AM EST [facility] Comment:This is an appended report. These results have been appended to a previously preliminary verified report. Blood VENOUS BLOOD SPECIMEN / Unknown Venipuncture / Unknown 10/01/2024 2:02 AM EST 10/01/2024 2:10 AM EST Hayley Torres MD HEMATOLOGY ORDERABLE S [facility] [place] [address] * POC, GLUCOSE (10/01/2024 12:32 AM EST) Glucometer, POC 179 65 - 199 mg/dL 10/01/2024 12:32 AM EST [facility] Comment:Supplemental ranges: <140 mg/dL before meals <180 mg/dL all other times of the day. Blood CAPILLARY BLOOD / Unknown 10/01/2024 12:32 AM EST 10/01/2024 12:32 AM EST Hayley Torres MD POINT OF CARE TEST O GILDA Performing Organization Address [facility] Co de Phone Number [facility] [place] [address] * POC, GLUCOSE (09/30/2024 7:37 PM EST) Glucometer, POC 140 65 - 199 mg/dL 09/30/2024 7:38 PM EST [facility] Comment:Supplemental ranges: <140 mg/dL before meals <180 mg/dL all other times of the day. Blood CAPILLARY BLOOD / Unknown 09/30/2024 7:37 PM EST 09/30/2024 7:38 PM EST Hayley Torres MD POINT OF CARE TEST O GILDA Performing Organization Address [facility] Co de Phone Number [facility] [place] [address] * POC, GLUCOSE (09/30/2024 4:29 PM EST) Glucometer, POC 126 65 - 199 mg/dL 09/30/2024 4:30 PM EST [facility] Comment:Supplemental ranges: <140 mg/dL before meals <180 mg/dL all other times of the day. Blood CAPILLARY BLOOD / Unknown 09/30/2024 4:29 PM EST 09/30/2024 4:30 PM EST Hayley Torres MD POINT OF CARE TEST O GILDA Performing Organization Address City/[facility]/ZIP Co de Phone Number [facility] [place] [address] * POC, GLUCOSE (09/30/2024 12:16 PM EST) Glucometer, POC 107 65 - 199 mg/dL 09/30/2024 12:16 PM EST [facility] Comment:Supplemental ranges: <140 mg/dL before meals <180 mg/dL all other times of the day. Blood CAPILLARY BLOOD / Unknown 09/30/2024 12:16 PM EST 09/30/2024 12:16 PM EST Hayley Torres MD POINT OF CARE TEST O RDERABLES Performing Organization Address City/[facility]/ZIP Co de Phone Number [facility] [place] [address] * POC, GLUCOSE (09/30/2024 7:58 AM EST) Glucometer, POC 92 65 - 199 mg/dL 09/30/2024 7:58 AM EST [facility] Comment:Supplemental ranges: <140 mg/dL before meals <180 mg/dL all other times of the day. Blood CAPILLARY BLOOD / Unknown 09/30/2024 7:58 AM EST 09/30/2024 7:58 AM EST Hayley Torres MD POINT OF CARE TEST O GILDA Performing Organization Address [facility] Co de Phone Number [facility] [place] [address] * Potassium (09/30/2024 6:27 AM EST) Potassium 3.9 3.5 - 5.0 mMol/L 09/30/2024 7:10 AM EST [facility] Blood VENOUS BLOOD SPECIMEN / Unknown Venipuncture / Unknown 09/30/2024 6:27 AM EST 09/30/2024 6:35 AM EST Hayley Torres MD CHEMISTRY ORDERABLES Performing Organization Address City/[facility] Co de Phone Number [facility] [place] [address] * Vancomycin, trough (09/30/2024 6:27 AM EST) Vancomycin, Trough 14.1 10.0 - 20.0 mg/L 09/30/2024 7:10 AM EST [facility] Comment: Varies according to infection source. Blood VENOUS BLOOD SPECIMEN / Unknown Venipuncture / Unknown 09/30/2024 6:27 AM EST 09/30/2024 6:35 AM EST Hayley Torres MD CHEMISTRY ORDERABLES Performing Organization Address City/[facility]/ZIP Co de Phone Number [facility] [place] [address] * POC, GLUCOSE (09/30/2024 3:51 AM EST) Glucometer, POC 134 65 - 199 mg/dL 09/30/2024 3:51 AM EST [facility] Comment:Supplemental ranges: <140 mg/dL before meals <180 mg/dL all other times of the day. Blood CAPILLARY BLOOD / Unknown 09/30/2024 3:51 AM EST 09/30/2024 3:51 AM EST Hayley Torres MD POINT OF CARE TEST O RDERABLES Performing Organization Address City/[facility]/ZIP Co de Phone Number [facility] [place] [address] * Magnesium (09/29/2024 11:52 PM EST) Magnesium 0.85 0.69 - 1.07 mMol/L 09/30/2024 12:25 AM EST [facility] Blood VENOUS BLOOD SPECIMEN / Unknown Venipuncture / Unknown 09/29/2024 11:52 PM EST 09/29/2024 11:58 PM EST Hayley Torres MD CHEMISTRY ORDERABLES Performing Organization Address City/[facility]/ZIP Co de Phone Number [facility] [place] [address] * (ABNORMAL) Basic Metabolic Panel (09/29/2024 11:52 PM EST) Glucose 133 65 - 199 mg/dL 09/30/2024 12:51 AM EST [facility] Comment:Glucose Concentratio n >=200 mg/dL [...] PM EST Hayley Torres MD CHEMISTRY ORDERABLES [facility] [place] [address] * (ABNORMAL) CBC (with Diff) (09/29/2024 11:52 [...] EST Hayley Torres MD HEMATOLOGY ORDERABLE S [facility] [place] [address] * POC, GLUCOSE (09/29/2024 11:51 PM EST) Glucometer, POC 134 65 - 199 mg/dL 09/29/2024 11:51 PM EST [facility] Comment:Supplemental ranges: <140 mg/dL before meals <180 mg/dL all other times of the day. Blood CAPILLARY BLOOD / Unknown 09/29/2024 11:51 PM EST 09/29/2024 11:51 PM EST Hayley Torres MD POINT OF CARE TEST O RDERABLES [facility] [place] [address] * Blood culture (09/29/2024 9:24 PM EST) Blood Culture No growth at 120 hours 10/04/2024 11:01 PM EST [facility] Blood VENOUS BLOOD SPECIMEN / Unknown Venipuncture / Unknown 09/29/2024 9:24 PM EST 09/29/2024 9:34 PM EST Hayley Torres MD MICROBIOLOGY - BLOOD ORDERABLES [facility] [place] [address] * Blood culture (09/29/2024 9:24 PM EST) Blood Culture No growth at 120 hours 10/04/2024 11:01 PM EST [facility] Blood VENOUS BLOOD SPECIMEN / Unknown Venipuncture / Unknown 09/29/2024 9:24 PM EST 09/29/2024 9:34 PM EST Marko Dickson MD MICROBIOLOGY - BLOOD ORDERABLES [facility] [place] [address] * (ABNORMAL) POC, GLUCOSE (09/29/2024 7:35 PM EST) Glucometer, POC 202(H) 65 - 199 mg/dL 09/29/2024 7:36 PM EST [facility] Comment:Supplemental ranges: <140 mg/dL before meals <180 mg/dL all other times of the day. Blood CAPILLARY BLOOD / Unknown 09/29/2024 7:35 PM EST 09/29/2024 7:36 PM EST Hayley Torres MD POINT OF CARE TEST O GILDA [facility] [place] [address] * POC, GLUCOSE (09/29/2024 6:48 PM EST) Glucometer, POC 161 65 - 199 mg/dL 09/29/2024 6:48 PM EST [facility] Comment:Supplemental ranges: <140 mg/dL before meals <180 mg/dL all other times of the day. Blood CAPILLARY BLOOD / Unknown 09/29/2024 6:48 PM EST 09/29/2024 6:49 PM EST Hayley Torres MD POINT OF CARE TEST O GILDA [facility] [place] [address] * POC, GLUCOSE (09/29/2024 4:06 PM EST) Glucometer, POC 122 65 - 199 mg/dL 09/29/2024 4:06 PM EST [facility] Comment:Supplemental ranges: <140 mg/dL before meals <180 mg/dL all other times of the day. Blood CAPILLARY BLOOD / Unknown 09/29/2024 4:06 PM EST 09/29/2024 4:06 PM EST Hayley Torres MD POINT OF CARE TEST O RDERABLES Performing Organization Address [facility] Co de Phone Number [facility] [place] [address] * POC, GLUCOSE (09/29/2024 11:49 AM EST) Glucometer, POC 135 65 - 199 mg/dL 09/29/2024 11:49 AM EST [facility] Comment:Supplemental ranges: <140 mg/dL before meals <180 mg/dL all other times of the day. Blood CAPILLARY BLOOD / Unknown 09/29/2024 11:49 AM EST 09/29/2024 11:50 AM EST Hayley Torres MD POINT OF CARE TEST O RDERAHERNANDEZ Performing Organization Address [facility] de Phone Number [facility] [place] [address] * (ABNORMAL) POC, GLUCOSE (09/29/2024 7:53 AM EST) Glucometer, POC 202(H) 65 - 199 mg/dL 09/29/2024 7:53 AM EST [facility] Comment:Supplemental ranges: <140 mg/dL before meals <180 mg/dL all other times of the day. Blood CAPILLARY BLOOD / Unknown 09/29/2024 7:53 AM EST 09/29/2024 7:53 AM EST Hayley Torres MD POINT OF CARE TEST O RDERAHERNANDEZ Performing Organization Address [facility] Co de Phone Number [facility] [place] [address] * POC, GLUCOSE (09/29/2024 3:45 AM EST) Glucometer, POC 184 65 - 199 mg/dL 09/29/2024 3:46 AM EST [facility] Comment:Supplemental ranges: <140 mg/dL before meals <180 mg/dL all other times of the day. Blood CAPILLARY BLOOD / Unknown 09/29/2024 3:45 AM EST 09/29/2024 3:46 AM EST Hayley Torres MD POINT OF CARE TEST O RDERABLES [facility] [place] [address] * (ABNORMAL) Hemoglobin A1c (09/28/2024 11:51 PM EST) Hemoglobin A1c 9.7(H) 4.3 - 5.6 % 09/29/2024 9:54 AM EST [facility] Comment: Per ADA guidelines, without [...] red blood cell turnover may not be outside sales account representative of glycemic control. Reference Interval: 4.3 - 5.6% 5.7 - 6.4%: Consistent with prediabetes >=6.5%: Consistent with diagnosis of diabetes mellitus Estimated Average Glucose 232 mg/dL 09/29/2024 9:54 AM EST [facility] Blood VENOUS BLOOD SPECIMEN / Unknown Venipuncture / Unknown 09/28/2024 11:51 PM EST 09/28/2024 11:56 PM EST Hayley Torres MD CHEMISTRY ORDERABLES [facility] [place] [address] * Magnesium (09/28/2024 11:51 PM EST) Magnesium 0.72 0.69 - 1.07 mMol/L 09/29/2024 12:27 AM EST [facility] Blood VENOUS BLOOD SPECIMEN / Unknown Venipuncture / Unknown 09/28/2024 11:51 PM EST 09/28/2024 11:57 PM EST Hayley Torers MD CHEMISTRY ORDERABLES [facility] [place] [address] * (ABNORMAL) Basic Metabolic Panel (09/28/2024 11:51 PM EST) Glucose 204(H) 65 - 199 mg/dL 09/29/2024 12:40 AM [facility] PM EST Hayley Torres MD CHEMISTRY ORDERABLES [facility] [place] [address] * (ABNORMAL) CBC (with Diff) (09/28/2024 11:51 PM EST) White Blood Cell 12.76(H) 4.00 - 9.50 [...] - 0.04 x10(3)/mc L 09/29/2024 12:00 AM EST [facility] Blood VENOUS BLOOD SPECIMEN / Unknown Venipuncture / Unknown 09/28/2024 11:51 PM EST 09/28/2024 11:56 PM EST Hayley Torres MD HEMATOLOGY ORDERABLE S Performing Organization Address City/[facility]/ZIP Co de Phone Number [facility] [place] [address] * (ABNORMAL) POC, GLUCOSE (09/28/2024 11:45 PM EST) Glucometer, POC 238(H) 65 - 199 mg/dL 09/28/2024 11:45 PM EST [facility] Comment:Supplemental ranges: <140 mg/dL before meals <180 mg/dL all other times of the day. Blood CAPILLARY BLOOD / Unknown 09/28/2024 11:45 PM EST 09/28/2024 11:45 PM EST Hayley Torres MD POINT OF CARE TEST O GILDA Performing Organization Address [facility] Co de Phone Number [facility] [place] [address] * (ABNORMAL) POC, GLUCOSE (09/28/2024 10:00 PM EST) Glucometer, POC 287(H) 65 - 199 mg/dL 09/28/2024 10:00 PM EST [facility] Comment:Supplemental ranges: <140 mg/dL before meals <180 mg/dL all other times of the day. Blood CAPILLARY BLOOD / Unknown 09/28/2024 10:00 PM EST 09/28/2024 10:00 PM EST Hayley Torres MD POINT OF CARE TEST O GILDA Performing Organization Address City/[facility]/ZIP Co de Phone Number [facility] [place] [address] * (ABNORMAL) POC, GLUCOSE (09/28/2024 7:51 PM EST) Glucometer, POC 243(H) 65 - 199 mg/dL 09/28/2024 7:52 PM EST [facility] Comment:Supplemental ranges: <140 mg/dL before meals <180 mg/dL all other times of the day. Blood CAPILLARY BLOOD / Unknown 09/28/2024 7:51 PM EST 09/28/2024 7:52 PM EST Hayley Torres MD POINT OF CARE TEST O GILDA Performing Organization Address [facility] Co de Phone Number [facility] [place] [address] * Blood culture (09/28/2024 5:49 PM EST) Blood Culture No growth at 120 hours 10/03/2024 7:01 PM EST [facility] Blood VENOUS BLOOD SPECIMEN / Unknown Venipuncture / Unknown 09/28/2024 5:49 PM EST 09/28/2024 5:53 PM EST Marko Dickson MD MICROBIOLOGY - BLOOD ORDERABLES Performing Organization Address [facility] Co de Phone Number [facility] [place] [address] * (ABNORMAL) POC, GLUCOSE (09/28/2024 4:42 PM EST) Glucometer, POC 203(H) 65 - 199 mg/dL 09/28/2024 4:42 PM EST [facility] Comment:Supplemental ranges: <140 mg/dL before meals <180 mg/dL all other times of the day. Blood CAPILLARY BLOOD / Unknown 09/28/2024 4:42 PM EST 09/28/2024 4:42 PM EST Hayley Torres MD POINT OF CARE TEST O GILDA Performing Organization Address City/[facility]/ZIP Co de Phone Number [facility] [place] [address] * (ABNORMAL) Blood Gas, Arterial POC (09/28/2024 3:16 PM EST) pH, Arterial 7.42 7.35 - 7.45 09/28/2024 3:17 PM [facility] PCO2, Arterial 39 35 - 45 mmHg 09/28/2024 3:17 PM [facility] PO2, Arterial 103 85 - 104 mmHg 09/28/2024 3:17 PM [facility] Bicarbonate, Arterial 24.8 20.0 - 26.0 [...] 0.5 - 2.2 mmol/L 09/28/2024 3:17 PM EST [facility] IONIZED CALCIUM, ARTERIAL 1.08(L) 1.15 - 1.33 mmol/L 09/28/2024 3:17 PM EST [facility] Glucose, Arterial 163 65 - 199 mg/dL 09/28/2024 3:17 PM EST [facility] Comment:Glucose Concentratio n >=200 mg/dL plus symptoms is consistent with Diabetes Mellitus. Blood ARTERIAL BLOOD / Unknown 09/28/2024 3:16 PM EST 09/28/2024 3:17 PM EST Hayley Torres MD POINT OF CARE TEST O RDERABLES Performing Organization Address [facility]/State/[facility] Co de Phone Number [facility] [place] [address] * Surgical Pathology (09/28/2024 2:10 PM EST) Case Report Surgical Pathology Report ? Case: [id number] ? Authorizing Provider: ??Hayley Torres MD ? Collected: ? 09/28/2024 1410 ? Ordering Location: ? Main Operating Room [facility] ?? Received: ?09/28/2024 1644 ? [facility] ? Hospital ? Pathologist: ? Aziza Packer [...] gross diagnosis only sns 10/02/2024 8:17 AM EST [facility] Result Note Routine 10/02/2024 8:17 AM EST [facility] Second Hand [employer] Machine STRUCTURE OF LEFT LOWER LIMB / Unknown 09/28/2024 2:10 PM EST 09/28/2024 4:44 PM EST Comment:Left femoral proxima l graft Biomedical device (physical object) STRUCTURE OF LEFT LOWER LIMB / Unknown 09/28/2024 2:17 PM EST 09/28/2024 4:44 PM EST Comment:Left distal BK pop g raft Hayley Torres MD PATHOLOGY/CYTOLOGY O RDERABLES [facility] [place] [address] * Potassium (09/28/2024 10:45 AM EST) Potassium 4.6 3.5 - 5.0 mMol/L 09/28/2024 12:26 PM EST [facility] Blood VENOUS BLOOD SPECIMEN / Unknown Venipuncture / Unknown 09/28/2024 10:45 AM EST 09/28/2024 10:53 AM EST Marko Dickson MD CHEMISTRY ORDERABLES [facility] [place] [address] * POC, GLUCOSE (09/28/2024 7:57 AM EST) Glucometer, POC 192 65 - 199 mg/dL 09/28/2024 7:57 AM EST [facility] Comment:Supplemental ranges: <140 mg/dL before meals <180 mg/dL all other times of the day. Blood CAPILLARY BLOOD / Unknown 09/28/2024 7:57 AM EST 09/28/2024 7:57 AM EST Marko Dickson MD POINT OF CARE TEST O RDERABLES [facility] [place] [address] * ELEN, legs, multiple levels (09/28/2024 7:44 AM EST) VB Text Report Department: Vascular Surgery Lab Patient: [id number] (GEOVANNA DIXON) CPT: [id number] Referring Physician: HERMILA SNIDER ?? Phone: Indications: [...] Report VASCUBASE 09/28/2024 7:44 AM EST Hermila Kyler White APRN VASCULAR ORDERABLE S VASCUBASE * ECHO LMTD W/O CONTRAST W LMTD SPEC DOPP COLOR DOPP (09/28/2024 7:35 AM EST) Anatomical Region Laterality Modality Cardiac Other 09/28/2024 6:56 AM EST Narrative 09/28/2024 9:15 AM EST [address] [place] [address] ? Echocardiogram Report Name: GEOVANNA DIXON JR ?Study Date: 09/28/2024 06:56 AMBP: 132/75 mmHg ? Patient Location: ^IC08^A : 1975 ? Height: 179 cm ? Account: [id number] Age: 49 yrs ? Weight: 108 kg Gender: Male ?BSA: 2.3 m2 Ordering Physician: Marko Dickson MD Referring Physician: PATRIC GILES Performed By: Faiza Cole Reason For Study: Vascular graft infection, initial encounter; MRSA bacteremia Interpreting Fellow: Jame Lares. Exam Location: [facility]. Interpretation Summary -Limited study performed for [...] 05/29/2024, no significant changes. Procedure Limited - 47115. Doppler - 29573. Color Doppler - 84256. Suboptimal quality. This study is limited because [...] Note David Lomeli MD - 09/28/2024 [address] [place] [address] Echocardiogram Report Name: GEOVANNA DIXON, JR Study Date: 406:56 AMBP: 132/75 mmHg Patient Location:[facility]^ : 1975 Height: 179 cm Account: [id number] Age: 49 yrs Weight: 108 kg Gender: Male BSA: 2.3 m2 Ordering Physician: Marko Dickson MD Referring Physician: PATRIC GILES Performed By: Faiza Cole Reason For Study: Vascular graft infection, initial encounter; MRSAbacteremia Interpreting Fellow: Jame Lares. Exam Location: [facility]. Interpretation Summary -Limited study performed for [...] 05/29/2024, no significant changes. Procedure Limited - 23023. Doppler - 65776. Color Doppler - 52681. Suboptimalquality. This study is limited because of [...] * Vancomycin, trough (09/28/2024 6:44 AM EST) Vancomycin, Trough 10.0 10.0 - 20.0 mg/L 09/28/2024 7:21 AM EST [facility] Comment: Varies according to infection source. Blood VENOUS BLOOD SPECIMEN / Unknown Venipuncture / Unknown 09/28/2024 6:44 AM EST 09/28/2024 6:49 AM EST Marko Dickson MD CHEMISTRY ORDERABLES Performing Organization Address [facility]/ZIP Co de Phone Number [facility] [place] [address] * (ABNORMAL) Potassium (09/28/2024 4:55 AM EST) Potassium 2.9(LLL) 3.5 - 5.0 mMol/L 09/28/2024 5:31 AM EST [facility] Blood VENOUS BLOOD SPECIMEN / Unknown Venipuncture / Unknown 09/28/2024 4:55 AM EST 09/28/2024 5:01 AM EST Marko Dickson MD CHEMISTRY ORDERABLES Performing Organization Address [facility] Co de Phone Number [facility] [place] [address] * (ABNORMAL) POC, GLUCOSE (09/28/2024 3:54 AM EST) Glucometer, POC 229(H) 65 - 199 mg/dL 09/28/2024 3:54 AM EST [facility] Comment:Supplemental ranges: <140 mg/dL before meals <180 mg/dL all other times of the day. Blood CAPILLARY BLOOD / Unknown 09/28/2024 3:54 AM EST 09/28/2024 3:54 AM EST Marko Dickson MD POINT OF CARE TEST O RDERABLES Performing Organization Address [facility] Co de Phone Number [facility] [place] [address] * Magnesium (09/27/2024 11:58 PM EST) Magnesium 0.77 0.69 - 1.07 mMol/L 09/28/2024 12:38 AM EST [facility] Blood VENOUS BLOOD SPECIMEN / Unknown Venipuncture / Unknown 09/27/2024 11:58 PM EST 09/28/2024 12:10 AM EST Halyey Torres MD CHEMISTRY ORDERABLES [facility] [place] [address] * (ABNORMAL) Basic Metabolic Panel (09/27/2024 11:58 PM EST) Glucose 246(H) 65 - 199 mg/dL 09/28/2024 12:38 AM EST [facility] Comment:Glucose Concentratio n >=200 mg/dL [...] AM EST Hayley Torres MD CHEMISTRY ORDERABLES [facility] [place] [address] * (ABNORMAL) CBC (with Diff) (09/27/2024 11:58 [...] - 0.10 x10(3)/mc L 09/28/2024 12:14 AM EST [facility] Immature Gran % 1.4 % 12:14 AM EST [facility] Immature Gran Absolute 0.24(H) 0.00 - 0.04 x10(3)/mc L 09/28/2024 12:14 AM EST [facility] Blood VENOUS BLOOD SPECIMEN / Unknown Venipuncture / Unknown 09/27/2024 11:58 PM EST 09/28/2024 12:10 AM EST Hayley Torres MD HEMATOLOGY ORDERABLE S [facility] [place] [address] * (ABNORMAL) POC, GLUCOSE (09/27/2024 11:46 PM EST) Glucometer, POC 205(H) 65 - 199 mg/dL 09/27/2024 11:46 PM EST [facility] Comment:Supplemental ranges: <140 mg/dL before meals <180 mg/dL all other times of the day. Blood CAPILLARY BLOOD / Unknown 09/27/2024 11:46 PM EST 09/27/2024 11:46 PM EST Marko Dickson MD POINT OF CARE TEST O RDERABLES [facility] [place] [address] * (ABNORMAL) Blood culture (09/27/2024 9:33 PM EST) Blood Culture Methicillin Resistant Staphylococcus aureus(Critical) 10/02/2024 8:04 AM EST [facility] Comment:Susceptibilities pre viously reported. Gram Stain Aerobic Bottle: Gram positive cocci in clusters(Critical ) 10/02/2024 8:04 AM EST [facility] Blood VENOUS BLOOD SPECIMEN / Unknown Venipuncture / Unknown 09/27/2024 9:33 PM EST 09/27/2024 9:38 PM EST Marko Dickson MD MICROBIOLOGY - BLOOD ORDERABLES [facility] [place] [address] * POC, GLUCOSE (09/27/2024 7:51 PM EST) Glucometer, POC 142 65 - 199 mg/dL 09/27/2024 7:51 PM EST [facility] Comment:Supplemental ranges: <140 mg/dL before meals <180 mg/dL all other times of the day. Blood CAPILLARY BLOOD / Unknown 09/27/2024 7:51 PM EST 09/27/2024 7:51 PM EST Marko Dickson MD POINT OF CARE TEST O RDERABLES Performing Organization Address City/[facility]/ZIP Co de Phone Number [facility] [place] [address] * (ABNORMAL) Hemogram (09/27/2024 5:55 PM EST) [facility] White Blood Cell 19.38(H) 4.00 - 9.50 x10(3)/mc L 09/27/2024 6:16 PM [facility] Red Blood Cell 3.76(L) 4.58 - 5.54 x10(6)/mc L 09/27/2024 6:16 PM EST [facility] Hemoglobin 11.0(L) 13.7 - 16.5 g/dL 09/27/2024 6:16 PM [facility] Hematocrit 31.6(L) 40.5 - 48.5 % [...] 32.0 - 35.7 g/dL 09/27/2024 6:16 PM EST [facility] Platelet 322 145 - 357 [...] CENTER LABORATORY NRBC% auto 0.0 % 09/27/2024 6:16 PM [facility] NRBC Absolute <0.01 <0.01 x10(3)/mc L 09/27/2024 6:16 PM [facility] Blood VENOUS BLOOD SPECIMEN / Unknown Venipuncture / Unknown 09/27/2024 5:55 PM EST 09/27/2024 6:05 PM EST Marko Dickson MD HEMATOLOGY ORDERABLE S [facility] [place] [address] * POC, GLUCOSE (09/27/2024 5:48 PM EST) [facility] Signature Glucometer, POC 171 65 - 199 mg/dL 09/27/2024 5:48 PM EST [facility] Comment:Supplemental ranges: <140 mg/dL before meals <180 mg/dL all other times of the day. Blood CAPILLARY BLOOD / Unknown 09/27/2024 5:48 PM EST 09/27/2024 5:48 PM EST Marko Dickson MD POINT OF CARE TEST O RDERABLES [facility] [place] [address] * Anaerobic Culture (09/27/2024 4:54 PM EST) Anaerobic Culture No anaerobic organisms isolated 10/01/2024 3:54 PM EST [facility] Tissue STRUCTURE OF LEFT THIGH / Unknown 09/27/2024 4:54 PM EST Comment:Infected explanted l eft leg bypass graft Hayley Torres MD MICROBIOLOGY - GENER AL ORDERABLES [facility] [place] [address] * (ABNORMAL) Tissue Culture, Aerobic Only (09/27/2024 4:54 PM EST) Tissue Culture Rare Methicillin Resistant Staphylococcus aureus(A) VITEK 2 METHOD 10/01/2024 1:18 PM EST [facility] Gram Stain Few Neutrophils seen 10/01/2024 1:18 PM EST [facility] Gram Stain No microorganisms seen 10/01/2024 1:18 PM EST [facility] Tissue STRUCTURE OF LEFT THIGH [...] Vancomycin VITEK 2 METHOD 1.0 ug/ml: Susceptible Halyey Torres MD MICROBIOLOGY - GENER AL ORDERABLES Performing Organization Address [facility] Co de Phone Number [facility] [place] [address] * POC, GLUCOSE (09/27/2024 3:23 PM EST) Glucometer, POC 178 65 - 199 mg/dL 09/27/2024 3:23 PM EST [facility] Comment:Supplemental ranges: <140 mg/dL before meals <180 mg/dL all other times of the day. Blood CAPILLARY BLOOD / Unknown 09/27/2024 3:23 PM EST 09/27/2024 3:23 PM EST Marko Dickson MD POINT OF CARE TEST O GILDA Performing Organization Address [facility] Co de Phone Number [facility] [place] [address] * POC, GLUCOSE (09/27/2024 11:29 AM EST) Glucometer, POC 181 65 - 199 mg/dL 09/27/2024 11:29 AM EST [facility] Comment:Supplemental ranges: <140 mg/dL before meals <180 mg/dL all other times of the day. Blood CAPILLARY BLOOD / Unknown 09/27/2024 11:29 AM EST 09/27/2024 11:30 AM EST Marko Dickson MD POINT OF CARE TEST O GILDA Performing Organization Address [facility] Co de Phone Number [facility] [place] [address] * CT Lower Extremity w Contrast Left (09/27/2024 9:16 AM EST) WORKSTATION ID [id number] RAD Anatomical Region Laterality Modality Hip, Leg, [...] who have questions please contact the health patient care specialist that requested your imaging first. ? Electronically signed by: Ignacia Chi MD, [facility] ([phone]), at 09/27/2024 10:48 AM Narrative 09/27/2024 10:48 AM EST EXAMINATION: CT [...] is wedgedbetween the vastus medialis and adductor [place] muscle. This tracks into thepopliteal fossa and [...] patients who have questions please contactthe health patient care specialist that requested your imaging first. [facility] OFFICER IMG CT ORDERABL ES * POC, GLUCOSE (09/27/2024 7:51 AM EST) [facility] Glucometer, POC 194 65 - 199 mg/dL 09/27/2024 7:51 AM EST [facility] Comment:Supplemental ranges: <140 mg/dL before meals <180 mg/dL all other times of the day. Blood CAPILLARY BLOOD / Unknown 09/27/2024 7:51 AM EST 09/27/2024 7:51 AM EST Marko Dickson MD POINT OF CARE TEST O RDERABLES Performing Organization Address City/[facility] Co de Phone Number [facility] [place] [id number] * (ABNORMAL) MRSA PCR Screen (09/27/2024 7:51 AM EST) [facility] MRSA PCR Detected(A ) 09/27/2024 11:56 AM EST [facility] Swab BOTH ANTERIOR NARES / Unknown Non Blood Collection / Unknown 09/27/2024 7:51 AM EST 09/27/2024 8:05 AM EST Narrative [facility] - 09/27/2024 11:56 AM EST This test was performed using the Xpert MRSA NxG test kit and is run on the [employer] GeneXpert Dx System. This test is cleared by the U.S. Food and Drug Administration for clinical use and its performance characteristics have been verified by the [facility] at [facility]. Marko Dickson MD MOLECULAR ORDERABLES [facility] [place] [address] * Potassium (09/27/2024 7:51 AM EST) Potassium 3.5 3.5 - 5.0 mMol/L 09/27/2024 9:09 AM EST [facility] Blood VENOUS BLOOD SPECIMEN / Unknown Venipuncture / Unknown 09/27/2024 7:51 AM EST 09/27/2024 8:05 AM EST Marko Dickson MD CHEMISTRY ORDERABLES Performing Organization Address [facility] de Phone Number [facility] [place] [address] * (ABNORMAL) Potassium (09/27/2024 5:05 AM EST) Potassium 3.4(L) 3.5 - 5.0 mMol/L 09/27/2024 5:32 AM EST [facility] Blood VENOUS BLOOD SPECIMEN / Unknown Venipuncture / Unknown 09/27/2024 5:05 AM EST 09/27/2024 5:09 AM EST Marko Dickson MD CHEMISTRY ORDERABLES Performing Organization Address [facility] Co de Phone Number [facility] [place] [address] * POC, GLUCOSE (09/27/2024 3:52 AM EST) Glucometer, POC 199 65 - 199 mg/dL 09/27/2024 3:52 AM EST [facility] Comment:Supplemental ranges: <140 mg/dL before meals <180 mg/dL all other times of the day. Blood CAPILLARY BLOOD / Unknown 09/27/2024 3:52 AM EST 09/27/2024 3:52 AM EST Marko Dickson MD POINT OF CARE TEST O RDERABLES [facility] [place] [address] * (ABNORMAL) POC, GLUCOSE (09/27/2024 1:59 AM EST) Glucometer, POC 219(H) 65 - 199 mg/dL 09/27/2024 2:00 AM EST [facility] Comment:Supplemental ranges: <140 mg/dL before meals <180 mg/dL all other times of the day. Blood CAPILLARY BLOOD / Unknown 09/27/2024 1:59 AM EST 09/27/2024 2:00 AM EST Marko Dickson MD POINT OF CARE TEST O RDERABLES [facility] [place] [address] * (ABNORMAL) Magnesium (09/27/2024 12:01 AM EST) Pathologist [facility] Magnesium 0.68(L) 0.69 - 1.07 mMol/L 09/27/2024 12:35 AM EST [facility] Blood VENOUS BLOOD SPECIMEN / Unknown Venipuncture / Unknown 09/27/2024 12:01 AM EST 09/27/2024 12:05 AM EST Hayley Torres MD CHEMISTRY ORDERABLES [facility] [place] [address] * (ABNORMAL) Basic Metabolic Panel (09/27/2024 12:01 AM EST) Glucose 261(H) 65 - 199 mg/dL 09/27/2024 12:35 AM EST [facility] Comment:Glucose Concentratio n >=200 mg/dL plus symptoms is consistent with Diabetes Mellitus. Blood Urea Nitrogen 7(L) 10 - 20 mg/dL 09/27/2024 12:35 AM EST [facility] Creatinine 0.45(L) 0.80 - 1.50 mg/dL 09/27/2024 12:35 AM EST [facility] Sodium 128(L) 135 - 145 mMol/L [...] 5 - 15 mMol/L 09/27/2024 12:35 AM [facility] Calcium 8.5 8.5 - [...] AM EST Hayley Torres MD CHEMISTRY ORDERABLES [facility] [place] [address] * (ABNORMAL) CBC (with Diff) (09/27/2024 12:01 AM EST) White Blood Cell 23.20(H) 4.00 - 9.50 x10(3)/mc L 09/27/2024 12:10 AM [facility] Red Blood Cell 4.07(L) 4.58 - [...] - 6.10 x10(3)/mc L 09/27/2024 12:10 AM EST [facility] Lymph % 6.7 % 09/27/2024 12:10 AM EST [facility] Lymph Absolute 1.56 0.90 - 3.20 x10(3)/mc L 09/27/2024 12:10 AM [facility] Monocyte % 7.8 % 09/27/2024 12:10 AM [facility] Monocyte Absolute 1.80(H) 0.30 - 0.90 x10(3)/mc L 09/27/2024 12:10 AM [facility] Eos % 0.2 % 09/27/2024 12:10 AM [facility] Eos Absolute 0.04 0.00 - 0.40 x10(3)/mc L 09/27/2024 12:10 AM [facility] Basophil % 0.5 % 09/27/2024 12:10 AM [facility] Baso Absolute 0.12(H) 0.00 - 0.10 x10(3)/mc L 09/27/2024 12:10 AM [facility] Immature Gran % 1.1 % 12:10 AM [facility] Immature Gran Absolute 0.25(H) 0.00 - 0.04 x10(3)/mc L 09/27/2024 12:10 AM [facility] Blood VENOUS BLOOD SPECIMEN / Unknown Venipuncture / Unknown 09/27/2024 12:01 AM EST 09/27/2024 12:05 AM EST Hayley Torres MD HEMATOLOGY ORDERABLE S [facility] [place] [address] * (ABNORMAL) POC, GLUCOSE (09/26/2024 11:59 PM EST) Glucometer, POC 251(H) 65 - 199 mg/dL 09/26/2024 11:59 PM EST [facility] Comment:Supplemental ranges: <140 mg/dL before meals <180 mg/dL all other times of the day. Blood CAPILLARY BLOOD / Unknown 09/26/2024 11:59 PM EST 09/26/2024 11:59 PM EST Marko Dickson MD POINT OF CARE TEST O GILDA [facility] [place] [address] * (ABNORMAL) POC, GLUCOSE (09/26/2024 7:34 PM EST) Glucometer, POC 204(H) 65 - 199 mg/dL 09/26/2024 7:34 PM EST [facility] Comment:Supplemental ranges: <140 mg/dL before meals <180 mg/dL all other times of the day. Blood CAPILLARY BLOOD / Unknown 09/26/2024 7:34 PM EST 09/26/2024 7:35 PM EST Marko Dickson MD POINT OF CARE TEST Stephanie VO Performing Organization Address City/[facility]/ZIP Co de Phone Number [facility] [place] [address] * (ABNORMAL) Blood culture (09/26/2024 6:45 PM EST) Blood Culture Methicillin Resistant Staphylococcus aureus(Critical) 10/01/2024 6:58 AM EST [facility] Comment: isolated. Susceptibilities previously reported. Gram Stain Aerobic Bottle: Gram positive cocci in clusters(Critical ) 10/01/2024 6:58 AM EST [facility] Blood VENOUS BLOOD SPECIMEN / Unknown Venipuncture / Unknown 09/26/2024 6:45 PM EST 09/26/2024 6:48 PM EST Marko Dickson MD MICROBIOLOGY - BLOOD ORDERABLES [facility] [place] [address] * (ABNORMAL) Sonicated Tissue/Implant Culture (09/26/2024 5:16 PM EST) Sonicated Tissue/Implan t Culture Methicillin Resistant Staphylococcus aureus(A) VITEK 2 METHOD 09/30/2024 1:49 PM EST [facility] Comment: isolated from broth culture. Susceptibilities previously reported. Vascular Graft STRUCTURE OF LEFT LOWER LIMB / Unknown Non Blood Collection / Unknown 09/26/2024 5:16 PM EST 09/26/2024 5:45 PM EST Marko Dickson MD MICROBIOLOGY - GENER AL ORDERABLES [facility] [place] [address] * Anaerobic Culture (09/26/2024 5:02 PM EST) Anaerobic Culture No anaerobic organisms isolated 09/30/2024 3:51 PM EST [facility] Abscess STRUCTURE OF LEFT KNEE REGION / Unknown Non Blood Collection / Unknown 09/26/2024 5:02 PM EST Comment:Left Below Knee popl iteal fluid Please perform Gram stain if not included in order Hayley Torres MD MICROBIOLOGY - GENER AL ORDERABLES [facility] [place] [address] * (ABNORMAL) Abscess/Wound Aspirate Culture, Aerobic Only (09/26/2024 5:02 PM EST) Abscess/Wound Aspirate Culture Many Methicillin Resistant Staphylococcus aureus(A) VITEK 2 METHOD 09/30/2024 1:37 PM EST [facility] Gram Stain Many neutrophils(A) 09/30/2024 1:37 PM EST [facility] Gram Stain Many Gram positive cocci(A) 09/30/2024 1:37 PM EST [facility] Abscess STRUCTURE OF LEFT KNEE [...] - GENER AL ORDERABLES Performing Organization Address City/[facility]/ZIP Co de Phone Number [facility] [place] [address] * Anaerobic Culture (09/26/2024 4:50 PM EST) Anaerobic Culture No anaerobic organisms isolated 09/30/2024 3:51 PM EST [facility] Abscess LEFT INGUINAL REGION STRUCTURE / Unknown Non Blood Collection / Unknown 09/26/2024 4:50 PM EST Comment:Left Groin Fluid Hayley Torres MD MICROBIOLOGY - GENER AL ORDERABLES Performing Organization Address City/[facility]/ZIP Co de Phone Number [facility] [place] [address] * (ABNORMAL) Abscess/Wound Aspirate Culture, Aerobic Only (09/26/2024 4:50 PM EST) Abscess/Wound Aspirate Culture Many Methicillin Resistant Staphylococcus aureus(A) VITEK 2 METHOD 09/30/2024 1:36 PM EST [facility] Gram Stain Many neutrophils(A) 09/30/2024 1:36 PM EST [facility] Gram Stain Many Gram positive cocci(A) 09/30/2024 1:36 PM [facility] Abscess LEFT INGUINAL REGION STRUCTURE / [...] Torres MD MICROBIOLOGY - GENER AL ORDERABLES [facility] [place] [address] * (ABNORMAL) Blood Gas, Arterial POC (09/26/2024 [...] Dickson MD POINT OF CARE TEST O GILDA [facility] [place], [place] [id number] * (ABNORMAL) POC, GLUCOSE (09/26/2024 4:29 PM EST) Glucometer, POC 213(H) 65 - 199 mg/dL 09/26/2024 4:30 PM EST [facility] Comment:Supplemental ranges: <140 mg/dL before meals <180 mg/dL all other times of the day. Blood CAPILLARY BLOOD / Unknown 09/26/2024 4:29 PM EST 09/26/2024 4:30 PM EST Marko Dickson MD POINT OF CARE TEST O GILDA Performing Organization Address City/[facility]/ZIP Co de Phone Number [facility] [place] [place] [address] * (ABNORMAL) Blood Gas, Venous POC (09/26/2024 3:28 PM EST) pH, Venous 7.43(H) 7.32 - 7.42 09/26/2024 3:30 PM EST [facility] PCO2, Venous 41 38 - 58 mmHg 09/26/2024 3:30 PM [facility] PO2, Venous 18 16 - 65 [...] Venous 1.0 % 09/26/2024 3:30 PM EST [facility] Comment: Nonsmokers: 0.5-1.5% COHB ?? Smokers: Variable ??but usually less than 10% ?? Toxic: 20-30% COHB ?? Lethal: Greater than 60% COHB Methemoglobin, Venous 0.4 <=1.5 % 09/26/2024 3:30 PM EST [facility] Sodium, Venous 127(L) 135 - 145 mmol/L 09/26/2024 3:30 PM EST [facility] Potassium, Venous 3.3(L) 3.5 - [...] MD POINT OF CARE TEST O RDERABLES [facility] [place] [address] * (ABNORMAL) Scan, Peripheral Blood (09/26/2024 2:39 PM EST) RBC Morphology Abnormal 09/26/2024 3:21 PM [facility] Platelet Estimate Normal Normal 09/26/2024 3:21 PM [facility] Microcyte 1-5 /HPF 09/26/2024 3:21 PM EST [facility] Platelet Clumps Present(A) (none) 3:21 PM EST [facility] WBC MORPHOLOGY See Comment(A) (none) 09/26/2024 3:21 PM EST [facility] Comment:Dohle BodiesToxic Gr anulation Blood VENOUS BLOOD SPECIMEN / Unknown Venipuncture / Unknown 09/26/2024 2:39 PM EST 09/26/2024 2:50 PM EST Marko Dickson MD HEMATOLOGY ORDERABLE S [facility] [place] [address] * ABORH RECHECK (PATIENT HISTORY FOUND) (09/26/2024 2:39 PM EST) [facility] ABORH Recheck Progress Complete 09/26/2024 5:01 PM EST [facility] Blood VENOUS BLOOD SPECIMEN / Unknown Venipuncture / Unknown 09/26/2024 2:39 PM EST 09/26/2024 2:56 PM EST Marko Dickson MD BLOOD BANK LAB ORDER RANDELL Performing Organization Address City/[facility]/ZIP Co de Phone Number [facility] [place] [address] * (ABNORMAL) Hepatic Function Panel (09/26/2024 2:39 PM EST) [facility] Albumin 3.1(L) 3.2 - 5.2 g/dL 09/26/2024 4:23 PM EST [facility] Aspartate Aminotransferase 16 <=39 unit/L 09/26/2024 4:23 PM EST [facility] Alanine Aminotransferase 14 0 - 55 unit/L 09/26/2024 4:23 PM EST [facility] Alkaline Phosphatase 160(H) 40 - 130 unit/L 09/26/2024 4:23 PM EST [facility] Bilirubin, Total 0.4 <=1.3 mg/dL 09/26/2024 4:23 PM [facility] Bilirubin, Direct 0.2 0.0 - 0.3 mg/dL 09/26/2024 4:23 PM [facility] Protein, Total 7.0 6.1 - 8.0 g/dL 09/26/2024 4:23 PM [facility] Blood VENOUS BLOOD SPECIMEN / Unknown Venipuncture / Unknown 09/26/2024 2:39 PM EST 09/26/2024 2:50 PM EST Marko Dickson MD CHEMISTRY ORDERABLES [facility] [place] [address] * (ABNORMAL) Basic Metabolic Panel (09/26/2024 2:39 PM EST) Glucose 254(H) 65 - 199 mg/dL 09/26/2024 4:32 PM [facility] Comment:Glucose Concentratio n >=200 mg/dL plus symptoms is consistent with Diabetes Mellitus. Blood Urea Nitrogen 9(L) 10 - 20 mg/dL 09/26/2024 4:32 PM [facility] 5 - 15 mMol/L 09/26/2024 4:32 PM [facility] Calcium 8.9 8.5 - 10.5 mg/dL 09/26/2024 4:32 PM EST [facility] Est Glomerular Filtration Rate - Male 121 mL/min/1. 73 m?? 09/26/2024 4:32 PM EST [facility] Comment: This patient's estimated GFR [...] PM EST Hayley Torres MD CHEMISTRY ORDERABLES [facility] [place] [address] * (ABNORMAL) CBC (with Diff) (09/26/2024 2:39 PM EST) White Blood Cell 22.76(H) 4.00 - 9.50 x10(3)/mc L 09/26/2024 3:21 PM EST [facility] Red Blood Cell 4.20(L) 4.58 - 5.54 x10(6)/mc L 09/26/2024 3:21 PM EST [facility] Hemoglobin 12.3(L) 13.7 - 16.5 [...] - 0.40 x10(3)/mc L 09/26/2024 3:21 PM [facility] Comment:This is an appended report. These results have been appended to a previously preliminary verified report. Basophil % 0.5 % 09/26/2024 3:21 PM [facility] Comment:This is an appended report. These results have been appended to a previously preliminary verified report. Baso Absolute 0.11(H) 0.00 - 0.10 x10(3)/mc L 09/26/2024 3:21 PM [facility] Comment:This is an appended report. These results have been appended to a previously preliminary verified report. Immature Gran % 1.2 % 3:21 PM [facility] Comment:This is an appended report. These results have been appended to a previously preliminary verified report. Immature Gran Absolute 0.28(H) 0.00 - 0.04 x10(3)/mc L 09/26/2024 3:21 PM [facility] Comment:This is an appended report. These results have been appended to a previously preliminary verified report. Blood VENOUS BLOOD SPECIMEN / Unknown Venipuncture / Unknown 09/26/2024 2:39 PM EST 09/26/2024 2:50 PM EST Hayley Torres MD HEMATOLOGY ORDERABLE S Performing Organization Address City/[facility]/ZIP Co de Phone Number [facility] [place] [address] * Phosphorus (09/26/2024 2:39 PM EST) [facility] Phosphorus 3.2 2.5 - 4.5 mg/dL 09/26/2024 4:05 PM EST [facility] Blood VENOUS BLOOD SPECIMEN / Unknown Venipuncture / Unknown 09/26/2024 2:39 PM EST 09/26/2024 2:50 PM EST Marko Dickson MD CHEMISTRY ORDERABLES Performing Organization Address City/[facility]/ZIP Co de Phone Number [facility] [place] [address] * (ABNORMAL) Magnesium (09/26/2024 2:39 PM EST) [facility] Magnesium 0.65(L) 0.69 - 1.07 mMol/L 09/26/2024 4:05 PM EST [facility] Blood VENOUS BLOOD SPECIMEN / Unknown Venipuncture / Unknown 09/26/2024 2:39 PM EST 09/26/2024 2:50 PM EST Marko Dickson MD CHEMISTRY ORDERABLES Performing Organization Address City/[facility]/ZIP Co de Phone Number [facility] [place] [address] * Type and screen ([facility]/CGP/BABITA) (09/26/2024 2:39 PM EST) [facility] ABORH Type A POSITIVE 09/26/2024 3:45 PM EST [facility] PATIENT HISTORY Found 09/26/2024 3:45 PM EST [facility] Expires at [id number] on: 09/29/2024 09/26/2024 3:45 PM EST [facility] ANTIBODY SCREEN AUTOMATED Negative 09/26/2024 3:45 PM EST [facility] T&S only valid at [facility] 09/26/2024 3:45 PM EST [facility] Blood VENOUS BLOOD SPECIMEN / Unknown Venipuncture / Unknown 09/26/2024 2:39 PM EST 09/26/2024 2:56 PM EST Narrative [facility] - 09/26/2024 3:45 PM EST This Type and Screen result is only valid at the [facility] Marko Dickson MD BLOOD BANK LAB ORDER RANDELL Performing Organization Address City/[facility] Co de Phone Number [facility] [place] [address] * (ABNORMAL) Fibrinogen (09/26/2024 2:39 PM EST) [facility] Fibrinogen >1,000(H) 200 - 393 mg/dL 09/26/2024 3:09 PM EST [facility] Comment: A fibrinogen level >100 mg/dL is adequate for hemostasis in most patients without underlying bleeding disorders. Blood VENOUS BLOOD SPECIMEN / Unknown Venipuncture / Unknown 09/26/2024 2:39 PM EST 09/26/2024 2:50 PM EST Marko Dickson MD HEMATOLOGY ORDERABLE S Performing Organization Address [facility] de Phone Number [facility] [place] [address] * APTT (09/26/2024 2:39 PM EST) Pathologist [facility] Partial Thromboplastin Time 36 25 - 37 sec 09/26/2024 3:09 PM EST [facility] Comment: The PTT is NOT appropriate for heparin monitoring. Use the Anti-Xa level for heparin monitoring (HEP UFH) or LMWH monitoring (HEP LMW). A PTT less than 37 seconds generally indicates adequate hemostasis. Blood VENOUS BLOOD SPECIMEN / Unknown Venipuncture / Unknown 09/26/2024 2:39 PM EST 09/26/2024 2:50 PM EST Marko Dickson MD HEMATOLOGY ORDERABLE S Performing Organization Address City/[facility] Co de Phone Number [facility] [place] [address] * (ABNORMAL) Prothrombin Time (09/26/2024 2:39 PM EST) [facility] Prothrombin Time 21.6(H) 9.4 - 12.5 sec 09/26/2024 3:09 PM EST [facility] International Normalization Ratio 1.9 <=4.9 09/26/2024 3:09 PM EST [facility] Comment: An INR < 2.0 [...] MD HEMATOLOGY ORDERABLE S Performing Organization Address [facility]/ZIP Co de Phone Number [facility] [place] [address] * (ABNORMAL) POC, GLUCOSE (09/26/2024 2:36 PM EST) [facility] Glucometer, POC 268(H) 65 - 199 mg/dL 09/26/2024 2:36 PM EST [facility] Comment:Supplemental ranges: <140 mg/dL before meals <180 mg/dL all other times of the day. Blood CAPILLARY BLOOD / Unknown 09/26/2024 2:36 PM EST 09/26/2024 2:36 PM EST Marko Dickson MD POINT OF CARE TEST O RDERABLES [facility] [place] [address] * (ABNORMAL) Blood culture (09/26/2024 2:22 PM EST) Blood Culture Methicillin Resistant Staphylococcus aureus(Critical) VITEK 2 METHOD 10/07/2024 7:40 AM EST [facility] Comment: detected by PCR Isolate saved. If future testing is required, contact the Microbiology Fish Cutting Machine Operator. Gram Stain Aerobic Bottle: Gram positive cocci in clusters(Critical ) 10/07/2024 7:40 AM EST [facility] Blood VENOUS BLOOD SPECIMEN / [...] MICROBIOLOGY - BLOOD ORDERABLES Performing Organization Address City/State/[facility] Co de Phone Number [facility] [place] [address] * Request For 2nd Read CT Lower Extremity (09/26/2024 1:50 PM EST) WORKSTATION ID [id number] RAD Anatomical Region Laterality Modality Hip, Leg, [...] who have questions please contact the health patient care specialist that requested your imaging first. ? Electronically signed by: Lisette Bruno MD, [facility] ([phone]), at 09/26/2024 3:01 PM Narrative 09/26/2024 3:01 PM EST EXAMINATION: REQUEST FOR 2ND READ CT LOWER EXTREMITY CLINICAL HISTORY: Pt s/p LLE femoral-below knee popliteal bypass with PTFE graft, c/f infection surrounding graft, en route to [facility] for possible vascular surgery intervention; Sending Institution [facility]; Date of exam 20240926; I believe a [...] on series 3, image 8 and 641, 012, 505, 222. No other rim-enhancing fluid collection is seen. [...] c/f infection surrounding graft, en route to [facility] for possiblevascular surgery intervention; Sending Institution [facility]; Date of exam [id number]; Ibelieve a reinterpretation [...] on series 3, image 8 and 641, [phone], [phone]. No other rim-enhancing fluid collection is seen. [...] patients who have questions please contactthe health patient care specialist that requested your imaging first. Electronically signed by: Lisette Bruno MD, [facility]([phone]), at 09/26/2024 3:01 PM Marko Dickson MD IMG OUTSIDE INTERPRE TATION ORDERABLES documented in this encounter Visit Diagnoses Not on filedocumented in this encounter Admitting Diagnoses Diagnosis Vascular [...] Given 10/08/2024 8:56 AM EST 81 mg bisacodyL (Dulcolax) suppository 10 mg 10 [...] Given 10/03/2024 1:00 PM EST 10 mg DAPTOmycin (Cubicin) 700 mg in sodium chloride 0.9% 64 mL 700 mg (rounded from 692 mg = 8 mg/kg/dose ? 86.5 kg Adjusted weight), Intravenous, at 128 mL/hr, EVERY 24 HOURS, First dose (after last modification) on Wed10/10/24 at 1500, Until Discontinued, Routine, Indication for (Active or Suspected): Bacteremia/Sepsis, Restricted Antibiotic: Please indicate the most appropriate choice: ID Approval by Amaya Duncan 10/10/2024 2:46 PM EST 700 mg 128 [...] AM EST 5 mg Le ft Arm insulin glargine-ygfn (Semglee) (100 unit/mL) subcutaneous injection vial 25 Units 25 Units, Subcutaneous, 2 TIMES DAILY, First dose (after last modification) on Wed09/28/24 at 0900, Until Discontinued, Routine Given 10/10/2024 8:34 AM EST 25 Units Given 10/09/2024 8:25 PM EST 25 Units Given 10/09/2024 9:04 AM EST 25 Units insulin lispro (HumaLOG;Admelog) (100 unit/mL) subcutaneous [...] Given 10/10/2024 7:47 AM EST 1 Units lactulose (Chronulac) (0.67 gram/mL) oral liquid [...] EST 1 patch 17- Thigh Posterior (Left) losartan (Cozaar) tablet 50 mg 50 mg, Oral, DAILY, First dose on 10/01/24 at 0900, Until Discontinued, Routine Given 10/10/2024 [...] on Wed09/30/24 at 1200, Until Discontinued, Routine Given 10/10/2024 8:31 AM EST 400 mg Given 10/09/2024 8:23 PM EST 400 mg Given 10/09/2024 9:02 AM EST 400 mg melatonin tablet 3 mg 3 mg, Oral, [...] Given 10/08/2024 9:00 AM EST 25 mg oxyCODONE (Roxicodone) tablet 10 mg 10 mg, Oral, EVERY 4 HOURS PRN, Starting on Wed09/27/24 at 0931, Until Wed10/10/24 at 191, Pain, severe pain (7-10), If multiple routes [...] at 0931, Until Wed10/10/24 at 191, Pain, Breakthrough pain rescue dose, For moderate [...] Given 10/08/2024 9:00 AM EST 40 mg polyethylene glycoL (Miralax) packet 17 [...] on Wed10/07/24 at 0915, Until Discontinued, Routine protriptyline (Vivactil) tablet 10 mg 10 mg, Oral, 3 TIMES DAILY, First dose on Wed09/29/24 at 1500, Until Discontinued, Routine Given 10/10/2024 2:4 6 PM EST 10 mg Given 10/10/2024 8:36 AM EST 10 mg Given 10/09/2024 9:16 PM EST 10 mg senna-docusate (Pericolace) 8.6-50 mg per tablet 3 tablet 3 tablet, Oral, 2 TIMES DAILY, First dose (after last modification) on Wed10/07/24 at 0915, Until Discontinued, Routine Given 10/10/2024 8:31 AM EST 3 table ts Given 10/08/2024 8:29 PM EST 3 tablets Given 10/08/2024 8:56 AM EST 3 tablets venlafaxine XR (Effexor-XR) capsule 225 mg 225 [...] Lauren Zavala RN)0604 (Given - Provider: Lauren Zavala, DAVID)1107 (Given - Provider: Terell Araiza, RN) aspirin EC tablet 81 mg 81 [...] RN) 2115 (New Bag - Provider: Lauren Zavala, DAVID)2145 (Stopped - Provider: Lauren Zavala RN) DAPTOmycin (Cubicin) 700 mg in sodium chloride [...] Amaya Hernandez 1446 (New Bag - Provider: Terell Araiza, RN)1516 (Stopped - Provider: Terell Araiza RN) heparin (porcine) (5,000 units/1 mL) subcutaneous injection 5,000 Units 5,000 Units, Subcutaneous, EVERY 8 HOURS SCHEDULED, First dose on Wed09/26/24 at 2200, Until Discontinued, Routine 0604 (Given - Provider: Misael Bo RN)1420 (Given - Provider: Indira Tracey RN)2157 (Given - Provider: Jordyn Navas, DAVID) 0615 (Given - Provider: Jordyn Navas, DAVID)1415 (Given - Provider: Indira Tracey RN)2116 (Given - Provider: Lauren Zavala, DAVID) 0605 (Given - Provider: Lauren Zavala, DAVID)1446 (Given - Provider: Terell Araiza RN) insulin glargine-ygfn (Semglee) (100 unit/mL) subcutaneous injection vial 25 Units 25 Units, Subcutaneous, 2 TIMES DAILY, First dose (after last modification) on Wed09/28/24 at 0900, Until Discontinued, Routine 0903 (Given - Provider: Indira Tracey RN)2029 (Given - Provider: Jordyn Navas RN) 09 (Given - Provider: Jaja Diallo, DAVID)202 (Given - Provider: Lauren Zavala, DAVID) 0834 (Given - Provider: Terell Araiza RN) insulin lispro (HumaLOG;Admelog) (100 unit/mL) subcutaneous injection vial 0-11 Units 0-11 Units, Subcutaneous, 3 TIMES DAILY WITH MEALS, First dose on Wed09/27/24 at 1730, Until Discontinued, MEAL ASSOCIATED Give 1 unit for every 5 grams carbohydrate. Hold if not eating or if BG less than 70 mg/dL. , Routine 0930 (Given - Provider: Indira Tracey RN)1421 (Given - Provider: Indira Tracey RN)1754 (Given - Provider: Indira Tracey RN) 0800 (Given - Provider: Jaja Diallo RN)1409 (Given - Provider: Indira Tracey RN - Comment: patient ate late lunch)1810 (Given - Provider: Indira Tracey RN) 0834 (Given - Provider: Terell Araiza, RN)1333 (Given - Provider: Terell Araiza, RN)1700 (Due) insulin lispro (HumaLOG;Admelog) (100 unit/mL) [...] Indira Tracey RN)1420 (Given - Provider: Indira Tracey, DAVID)1609 (Given - Provider: Indira Tracey, DAVID)2030 (Given - Provider: Jordyn Navas, DAVID) 0035 (Given - Provider: Jordyn Navas, DAVID)0400 (Not Given - Provider: Jordyn Navas, DAVID - Reason: Patient/family refused)0903 (Given - Provider: Jaja Diallo RN)1225 (Given - Provider: Indira Tracey RN)1600 (Not [...] and then remove for 12 hours., Routine 2157 (Not Given - Provider: Jordyn Navas RN [...] RN)2027 (Given - Provider: Jordyn Navas RN) 0902 (Given - Provider: Jaja Diallo, DAVID)202 (Given - Provider: Lauren Zavala RN) 0831 (Given - Provider: Terell Araiza, RN) melatonin tablet 3 mg 3 mg, Oral, NIGHTLY, First dose on Wed10/02/24 at 0015, Until Discontinued, Routine 2027 (Given - Provider: Jordyn Navas RN) 2022 (Given - Provider: Lauren Zavala RN) methylphenidate (Ritalin) tablet 20 mg 20 [...] 0900 (Given - Provider: Indira Tracey RN) 0902 (Given - Provider: Jaja Diallo RN) 0831 (Given - Provider: Terell Araiza, RN) pantoprazole EC (Protonix) tablet 40 mg 40 mg, Oral, DAILY, First dose on Wed09/26/24 at 1600, Until Discontinued, DO NOT CRUSH OR OPEN 0900 (Given - Provider: Indira Tracey RN) 0902 (Given - Provider: Jaja Diallo, DAVID) 0831 (Given - Provider: Terell Araiza, RN) polyethylene glycoL (Miralax) packet 17 g 17 g, Oral, 2 TIMES DAILY, First dose (after last modification) on Wed10/07/24 at 0915, Until Discontinued, Routine 0900 (Not Given - Provider: Indira Tracey RN - Reason: Patient/family refused)2100 (Not Given - Provider: Jordyn Navas RN - Reason: Patient/family refused) 0900 (Not Given - Provider: Jaja Diallo RN [...] RN) 0903 (Given - Provider: Jaja Diallo RN)171 (Given - Provider: Jeana Cabrera LPN)2116 (Given - Provider: Lauren Zavala RN) 0836 (Given - Provider: Terell Araiza RN)1446 (Given - Provider: Terell Araiza RN) senna-docusate (Pericolace) 8.6-50 mg per tablet 3 tablet 3 tablet, Oral, 2 TIMES DAILY, First dose (after last modification) on Wed10/07/24 at 0915, Until Discontinued, Routine 0856 (Given - Provider: Indira Tracey RN)2028 (Given - Provider: Jordyn Navas RN) 0902 (Not Given - Provider: Jaja Diallo RN - Reason: Patient/family refused)2100 (Not Given - Provider: Lauren Zavala RN - Reason: Patient/family refused) 0831 (Given - Provider: Terell Araiza RN) venlafaxine XR (Effexor-XR) capsule 225 mg 225 mg, Oral, DAILY, First dose on Wed09/26/24 at 1600, Until Discontinued, DO NOT CRUSH OR OPEN, Routine 0859 (Given - Provider: Indira Tracey RN) 0902 (Given - Provider: Jaja Daillo RN) 0832 (Given - Provider: Terell Araiza RN) PRN Medication Order 10/08/2024 10/09/2024 10/10/2024 bisacodyL (Dulcolax) suppository 10 mg(Linked Group 2) 10 mg, Rectal, DAILY PRN, Starting on Wed10/01/24 at 0848, Until Wed10/10/24 at 1911, Constipation, Give if no BM within last [...] at 0931, Until Wed10/10/24 at 191, Pain, Breakthrough pain rescue dose, For moderate [...] at 1911, Constipation, Give if no BM within last 24 hr. Give concomitantly with any scheduled bowel medications ordered. , Routine And bisacodyL (Dulcolax) suppository 10 mgJump to med 10 mg, Rectal, DAILY PRN, Starting on Wed10/01/24 at 0848, Until Wed10/10/24 at 1911, Constipation, Give if no BM within last [...] enema (CANCELED) Routine, DAILY PRN, Starting on 10/01/24 at 0848, Until Specified, Give if no [...] on Wed09/27/24 at 0931, Until Wed10/10/24 at 1911, Pain, moderate pain (4-6), For adults, may give in place of other agent(s) ordered for pain (7-10) at patient request. If multiple routes of administration ordered, oral route first line., Routine Or oxyCODONE (Roxicodone) tablet 10 mgJump to med 10 mg, Oral, EVERY 4 HOURS PRN, Starting on Wed09/27/24 at 0931, Until Wed10/10/24 at 1911, Pain, severe pain (7-10), If multiple routes of administration ordered, oral route first line., Routine documented in this encounter Care Teams Mechanical Design Technician Relationship Specialty Start Date End Date Charles Romero [place] [address] PCP - General Internal Medicine 11/11/24 documented as of this encounter
--- OUTSIDE RECORDS SUMMARY | 2024-10-20 12:41 | XMS_ITS | Encounter Summary ---
[place] [address] Care Team Providers Care Molding Press Operator Name Role Phone Charles Romero Primary Care Provider + Encounter Details Date Type Department Care Team (Late st Contact Info) Description 10/04/2024 9:15 AM EST Anesthesia Event [place] [address] Michelle Crawford [facility] DR [place] [address] Anesthesia Record Procedure Summary Procedure Name Responsible Anesthesiologist Anesthesia Start Time Anesthesia Stop Time TRANSESOPHAGEAL ECHOCARDIOGRAM (WRVU 2.3) Events No events on file. Meds * Agents No agents on file. * Blood No blood administrations on file. Lines, Drains, and Airways Type Details Placement Removal Incision 09/26/24; 1650; Left; groin 09/08 08/01 1650 by Candie Tatum RN Incision 09/26/24; 1700; Left , medial, lower; leg 09/26/24 1700 by Candie Tatum RN Incision 09/26/24; 1726; Left , medial; thigh 09/26/24 1726 by Linda Pollock RN Closed/Suction Drain 09/30/24; 0843; Lef t, Proximal; Thigh; Bulb 09/30/24 0843 by Heidi Mobley, RN NPWT 10/04/24; 1557; othe r (see comments) (left groin, left upper thigh and left calf all Y'd to one vac); 1 black sponge in left groin, left upper thigh and left calf incision 10/04/24 1557 by Linda Pollock RN Wound 10/06/24; 0900; Left , anterior, distal; thigh; other (see comments) (vertical paula drain site); Paula drain site 10/06/24 0900 by Liana Mccormack RN documented in this encounter Social History Tobacco Use Types Packs/Day Years Used Date Smoking Tobacco: Every Day Cigarettes 1 25 Started: 12/28/1986; Last attempted to quit: 12/28/2011 Smokeless Tobacco: Never Alcohol Use Standard Drinks/Week Comments No 0 (1 standard drink = 0.6 oz pur e alcohol) [facility] Utilities Answer Date Recorded In the past 12 months has th e [employer], gas, oil, or water [employer] threatened to shut off services in your [...] living in a correction (including now)? No 09/27/2024 DH IPV Inpatient [...] 10/23/2024 1:00 PM EST Appointment XRay at [address] [place] [address] Isabela Hayward, [facility] [place] [address] 11/09/2024 1:30 PM EST Office Visit Infectious Disease at [place] [phone] Isabela Hayward, [facility] [place] [address] 11/10/2024 10:00 AM EST Office Visit Vascular Surgery at [place] [phone] Dai Whitman APRN 11/21/2024 2:15 PM EST Office Visit Endocrinology at [place] [phone] Dayanara Grover MD [facility] [place] [address] documented as of this encounter Visit Diagnoses Not on filedocumented in this encounter Care Teams Molding Press Operator Relationship Specialty Start Date End Date [place] [address] PCP - General Internal Medicine 09/18/24 documented as of this encounter
--- OUTSIDE RECORDS SUMMARY | 2024-10-20 12:41 | XMS_ITS | Encounter Summary ---
Author Organization [facility]ly [facility] [place] [address] Care Team Providers Care Investment Sales Assistant Name Role Phone Charles Romero Primary Care Provider + Reason for Visit * Auth/Cert (Routine) Specialty Diagnoses / Procedures Referred By William moses Referred To Contact Diagnoses Vascular graft infection, initial encounter Sepsis [A41.9] T82.7XXA Procedures EMERGENCY IPI Angel Gonsalez MD [facility] [place] [address] [facility] Referral ID Status Reason Start Date Expiration Date Visits Re quested Visits Authorized [id number] 1 1 Encounter Details Date Type Department Care Team (Late st Contact Info) Description 10/02/2024 1:24 PM EST Anesthesia [place] [address] Kodi Richardson MD [facility] [place] [address] Anesthesia Record Procedure Summary Procedure Name Responsible Anesthesiologist Anesthesia Start Time Anesthesia Stop Time DEBRIDEMENT SKIN, SUBCU, MUSCLE, LOWER EXTREMITY (WRVU 2.7) (Left) Kodi Richardson MD 10/02/24 1324 10/02/24 1502 Events Date Time Event Comment 10/02/2024 1236 1324 AN Verify 1324 Start 1331 An Start Data 1337 An Induction 1339 An Intubation 1339 Anesthesia Ready 1408 Break/Relief In I assumed ca re for Break Relief before which we: 1. Identified the patient 2. Identified the responsible provider(s) 3. Reviewed the pertinent medical history 4. Discussed the surgical plan and course 5. Reviewed intra-op anesthesia management and issues during anesthesia 6. Set expectations for the relief (and/or post-procedure) period 7. Allowed opportunity for questions and acknowledgement of understanding Marko Mckeon, [employer] RET[employer]IT ARCHITECT 1424 Break/Relief Out 1454 Extubation/LMA Out 1458 an stop data 1501 Recovery or ICU Handoff Bronwyn ent care was transferred to the destination unit staff after review of the patient's medical history, current anesthetic/surgical status and plan, according to the Provider Handoff Checklist. 1502 Stop Meds Name Total propofoL 300 mg propofol INF 276.8 mg rocuronium 50 mg sugammadex 200 mg dexAMETHasone 4 mg ondansetron 4 mg fentaNYL 100 mcg lactated ringers 500 mL * Agents [...] Bulb 09/30/24 0843 by Heidi Mobley RN Incision 07/19/24; 0946; Left ; second toe; 10/06/24; 0942 07/19/24 0946 by Alan Tobias RN 10/06/24 0942 by Liana Mccormack RN PIV 09/26/24; 1200; [id number] catheter system; 18 gauge; median cubital vein (antecubital fossa), left; [facility]; site symptomatic; 10/04/24; 1100 09/26/24 1200 by Pamela Eli RN 10/04/24 1100 by Liana Mccormack RN PIV 09/26/24; 1534; 20 gauge; basilic vein (medial side of arm), right; site symptomatic; 10/04/24; 1100 09/26/24 1534 by Pamela Eli RN 10/04/24 1100 by Liana Mccomrack RN Urethral Catheter 09/26/24; 1620; Surg wei longer than 2 hours, Physician order, Need for intraoperative urine output monitoring; Immobility without alternative; indwelling double lumen catheter; hydrophilic coated, latex; 14; inserted at [facility]; 1; 5; 10; none; drainage bag; 10/03/24; 1102 09/26/24 1620 by Candie Tatum RN 10/03/24 1102 by Audrey Valdes RN Open Drain 09/27/24; 1704; Left , Anterior; Groin; (1/2 MARGA) 09/27/24 1704 by Ignacia Vazquez RN 10/02/24 1428 by Thuy Bennett RN Open Drain 09/27/24; 1704; Left , Anterior, Medial; Thigh; (1/2 MARGA) 09/27/24 1704 by Ignacia Vazquez RN 10/02/24 1429 by Thuy Bennett RN Open Drain 09/27/24; 1705; Left , Anterior, Distal; Thigh; (1/2 MARGA) 09/27/24 1705 by Ignacia Vazquez RN 10/02/24 1429 by Thuy Bennett RN Incision 09/28/24; 1329; Left , medial, [...] RN 10/04/24 1538 by Linda Pollock RN ETT Mask Ventilation: Ea sy (1); ETT Type: Cuffed, Oral; ETT Size: 7.5 mm; Mac Blade: 4; Notes: Asleep, Pre-O2, Stylette; Attempts: 1; Laryngoscopy Grade: 1; ETT Placement Verified By: Auscultation, Capnometry, Visual; Secured at Teeth: 23 cm; Inserted by: Leona LUNA; Removal Date: 10/02/24; Removal Time: 1454 10/02/24 1339 by Dai Delgadillo CRNA 10/02/24 1454 by Dai Delgadillo CRNA Drain/Device Site 10/02/24; 1424; Left ; medial; thigh; (15F round drain with bulb); removed by MALE INFERTILITY SPECIALIST; 10/09/24; 1000 10/02/24 1424 by Guanako Liao RN 10/09/24 1000 by Indira Tracey RN Drain/Device Site 10/02/24; 1425; Left ; lower; leg; (15F round drain with bulb); removed - not present on assessment; 10/04/24; 0802 10/02/24 1425 by Guanako Liao RN 10/04/24 0802 by Liana Mccormack RN documented in this encounter Social History Tobacco Use Types Packs/Day Years Used Date Smoking Tobacco: Every Day Cigarettes 1 25 Started: 12/28/1986; Last attempted to quit: 12/28/2011 Smokeless Tobacco: Never Alcohol Use Standard Drinks/Week Comments No 0 (1 standard drink = 0.6 oz pur e alcohol) [facility] Utilities Answer Date Recorded In [...] in the past 12 m [facility], were you homeless or living in a senior living (including now)? No 09/27/2024 IPV Inpatient Questions [...] OR Notes * Anesthesia Postprocedure Evaluation - Kodi Richardson MD - 10/02/2024 4:09 PM EST Department of Anesthesiology Post-procedure Note Patient: Lux Dixon Jr. Procedure Summary Date: 10/02/24 Room / Location: [facility] OR [facility] MAIN OR Anesthesia Start: 1324 Anesthesia Stop: 1502 Procedure: DEBRIDEMENT SKIN, SUBCU, MUSCLE, LOWER EXTREMITY (WRVU 2.7) (Left) Diagnosis: (Infected LLE graft explant) Surgeons: Hermila Mccormick MD Responsible Provider: Kodi Richardson MD Anesthesia Type: general ASA Status: 4 All Anesthesia Providers: Anesthesiologist: Kodi Richardson MD [employer] ARCHITECT: Dai Delgadillo CRNA Vitals Value Taken Time BP 145/89 10/02/24 1559 Temp 37.3 ??C (99.1 ??F) 10/02/24 1600 Pulse 80 10/02/24 1600 Resp 12 10/02/24 1600 SpO2 96 % 10/02/24 1559 Pain Level 0 10/02/24 1600 Vitals shown include unfiled device data. Patient Location: PACU/[facility] Level of Consciousness: Awake and Alert Pain Management: Satisfactory Analgesia PONV: None Cardiovascular Status: Hemodynamically Stable Respiratory Status: Stable Respiratory Status Postoperative Fluid Status: Intravascular EUvolemia Possible Anesthetic Complications: NONE apparent at time of evaluation Final Primary Anesthesia Type: General (The anesthetic type performed was the same as planned.) Comments: * Anesthesia Preprocedure Evaluation - Kodi Richardson MD - 10/02/2024 12:35 PM EST Pre-Anesthesia Evaluation for: Lux Llanos Zack Winter a 49 y.o. male. Procedure(s): DEBRIDEMENT SKIN, [...] 3.51) performed by Thony Garcia MD at [facility] MAIN OR PRO BYPASS GRAFT OTHR, FEM-TIBIAL Left 08/01/2024 @BYPASS GRAFT, FEM-ANT TIBIAL, -POST TIBIAL, -PERONEAL, -DP W\ SYNTHETIC CONDUIT (WRVU 23.66) performed by Lisette Maldonado MD at [facility] MAIN OR PRO CABG, ARTERY-VEIN, SINGLE 01/04/2012 @CABG, VENOUS & ARTERIAL GRAFT;SINGLE VEIN GRAFT performed by INNA TOVAR at [facility] MAIN OR PRO DEBRIDEMENT MUSCLE AND FASCIA 20 SQ CM/< Left 09/29/2024 DEBRIDEMENT SKIN, SUBCU, MUSCLE, LOWER EXTREMITY (WRVU 2.7) performed by Taylor Ruiz MD at [facility] MAIN OR PRO DEBRIDEMENT SUBCUTANEOUS TISSUE 20 SQCM/< Left 09/27/2024 DEBRIDEMENT SKIN AND SUBCU, LOWER EXTREMITY (WRVU 1.01) performed by Hayley Torres MD at [facility] MAIN OR PRO DRAIN LOWER LEG DEEP ABSC/HEMATOMA Left 09/26/2024 INCISION & DRAINAGE, LEG OR ANKLE, DEEP ABSCESS OR HEMATOMA (WRVU 5.23) performed by Hayley Torres MD at [facility] OR [facility] ENDOSCOPY W/VIDEO-ASST VEIN HARVEST, CABG 01/04/2012 ENDOSCOPIC HARVEST VEIN(S) FOR CABG performed by INNA TOVAR at [facility] MAIN OR PRO EXCISION, INFEC GRAFT, EXTREMITY Left 09/26/2024 EXCISION OF INFECTED GRAFT FROM LOWER EXTREMITY (WRVU 9.53) performed by Hayley Torres MD at [facility] OR PRO EXCISION, INFEC GRAFT, EXTREMITY Left 09/28/2024 EXCISION OF INFECTED GRAFT FROM LOWER EXTREMITY (WRVU 9.53) performed by Hayley Torres MD at [facility] MAIN OR PRO EXPLORATION NOT FOLLOWED BY SURG LOWER EXTREMITY ARTERY Left 09/29/2024 @EXPLORATION W\O SURGICAL REPAIR, FEMORAL ARTERY - JENNIFER (WRVU 7.5) performed by Taylor Ruiz MD at [facility] MAIN OR PRO FORM SKIN PEDICLE FLAP SCALP, ARM, LEG 09/28/2024 FLAP, PEDICLE,W OR W/O TRANSFER, LEGS (WRVU 10.12) performed by Hayley oTrres MD at [facility] MAIN OR PRO I&D DEEP ABSCESS BURSA/HEMATOMA THIGH/KNEE REGION Left 09/26/2024 INCISION & DRAINAGE ABSCESS OR HEMATOMA, THIGH, KNEE SUPERFICIAL (WRVU 6.78) performed by Hayley Torres MD at [facility] MAIN OR PRO REVISION FEMORAL ANAST BPG GROIN OPEN W/NONAUTOG PATCH GRAFT Left 09/28/2024 REV. FEM. ANASTOMOSIS OF SYN. BYPASS GRAFT USING NONAUTOGENOUS PATCH ANGIOPLASTY-JENNIFER (WRVU 23.15) performed by Hayley Torres MD at [facility] MAIN OR PRO UNLISTED PROCEDURE VASCULAR SURGERY Left 09/28/2024 HARVEST SAPHENOUS VEIN (WRVU 13.24) performed by Hayley Torres MD at [facility] MAIN OR VS ARTERIOGRAM LOWER EXTREMITY VASCULAR SURGERY 07/20/2024 VS Arteriogram Lower Extremity Vascular Surgery 07/20/2024 Taylor Ruiz MD [facility] INTERVENTIONL RAD Social History Tobacco Use Smoking [...] s/p explant and washout on 09/26 & 09/27 now s/f repeat debridement of LLE with Dr. Ruiz. AnesHx: Multiple previous recent anesthetics without apparent [...] prior echo from 05/29/2024, no significant changes. Plan: GA w/ LMA vs ETT Standard ASA monitors + existing arterial line Adequate PIV access Patient seen and evaluated at bedside. Serial consent on file. Confirmed plan with patient at bedside. Region - Other Informed Consent: Anesthetic plan and risks discussed with patient. Plan discussed with attending and COMM[employer] RET[employer]IT ARCHITECT. Anesthesia Screening documented in this encounter Plan of Treatment Upcoming Encounters Date Type Department Care Team (Late st Contact Info) Description 10/23/2024 1:00 PM EST Appointment XRay at [address] [place] [phone] Isabela Hayward, MALE INFERTILITY SPECIALIST [facility] [place] [address] 11/09/2024 1:30 PM EST Office [place] [phone] Isabela Hayward, MALE INFERTILITY SPECIALIST [facility] [place] [address] 11/10/2024 10:00 AM EST Office [place] [phone] Dai Whitman, [facility] 11/21/2024 2:15 PM EST Office [place] [phone] Dayanara Grover MD [facility] [place] [address] documented as of this encounter Visit Diagnoses Not on filedocumented in this encounter Administered Medications Inactive Administered Medications - up to 3 most recent administrations Medication Order MAR Action Action Date Dose Rate Site dexAMETHasone (Decadron) injection Intravenous, PRN, Starting on Wed10/02/24 at 1347, Until Wed10/02/24 at 1609, Anesthesia Intra-op, Routine Given 10/02/2024 1:47 PM EST 4 mg fentaNYL (pf) (50 mcg/mL) multi-dose injection Intravenous, PRN, Starting on Wed10/02/24 at 1438, Until Wed10/02/24 at 1609, Anesthesia Intra-op, Routine Given 10/02/2024 2:43 PM EST 50 mcg Given 10/02/2024 2:38 PM EST 50 mcg lactated ringers infusion Intravenous, CONTINUOUS PRN, Starting on Wed10/02/24 at 1324, Until Wed10/02/24 at 1609, Anesthesia Intra-op New Bag 10/02/2024 1:24 PM EST ondansetron (pf) (Zofran) (2 mg/mL) injection Intravenous, PRN, Starting on Wed10/02/24 at 1441, Until Wed10/02/24 at 1609, Anesthesia Intra-op, Routine Given 10/02/2024 2:41 PM EST 4 mg propofoL (Diprivan) (10 mg/mL) infusion Intravenous, CONTINUOUS PRN, Starting on Wed10/02/24 at 1337, Until Wed10/02/24 at 1609, Anesthesia Intra-op, Routine New Bag 10/02/2024 1:37 PM EST 50 mcg/kg/min 25.95 mL/hr propofoL (Diprivan) 10 mg/mL bolus injection (Anesthesia) Intravenous, PRN, Starting on Wed10/02/24 at 1337, Until Wed10/02/24 at 1609, Anesthesia Intra-op Given 10/02/2024 1:37 PM EST 300 mg rocuronium (Zemuron) (10 mg/mL) multi-dose injection Intravenous, PRN, Starting on Wed10/02/24 at 1338, Until Wed10/02/24 at 1609, Anesthesia Intra-op, Routine Given 10/02/2024 1:38 PM EST 50 mg sugammadex (Bridion) 100 mg/mL injection Intravenous, PRN, Starting on Wed10/02/24 at 1441, Until Wed10/02/24 at 1609, Anesthesia Intra-op, Routine Given 10/02/2024 2:41 PM EST 200 mg documented in this encounter Care Teams Investment Sales Assistant Relationship Specialty Start Date End Date Charles Romero [place] [address] PCP - General Internal Medicine 09/18/24 documented as of this encounter
--- OUTSIDE RECORDS SUMMARY | 2024-10-20 12:42 | XMS_ITS | Encounter Summary ---
Author Organization [facility]ly [facility] [place] [address] Care Team Providers Care Steel Manager Name Role Phone Charles Romero Primary Care Provider + Reason for Visit * Auth/Cert (Routine) Specialty Diagnoses / Procedures Referred By William t Referred To Contact Diagnoses Vascular graft infection, initial encounter Sepsis [A41.9] T82.7XXA Procedures EMERGENCY IPI Angel Gonsalez MD [facility] [place] [address] [facility] Referral ID Status Reason Start Date Expiration Date Visits Re quested Visits Authorized [id number] 1 1 Encounter Details Date Type Department Care Team (Late st Contact Info) Description 09/29/2024 2:07 PM EST Anesthesia [place] [address] Penny Mathias MD [facility] [place] [address] Marko Mckeon CRNA [facility] [place] [address] Anesthesia Record Procedure Summary Procedure Name Responsible Anesthesiologist Anesthesia Start Time Anesthesia Stop Time @EXPLORATION W\O SURGICAL REPAIR, FEMORAL ARTERY - JENNIFER (WRVU 7.5) (Left: Leg) Penny Mathias MD 09/29/24 1407 09/29/24 1516 Events Date Time Event Comment 09/29/2024 1346 1407 AN Verify 1407 Start 1407 An Start Data 1418 An Induction 1424 An Intubation 1424 Anesthesia Ready 1441 Procedure Start 1515 Extubation/LMA Out 1515 Procedure Stop 1515 an stop data 1515 Recovery or ICU Handoff Bronwyn ent care was transferred to the destination unit staff after review of the patient's medical history, current anesthetic/surgical status and plan, according to the Provider Handoff Checklist. 1516 Stop Meds Name Total lidocaine IV 100 mg propofoL 200 mg rocuronium 80 mg sugammadex 200 mg ondansetron 4 mg PHENYLephrine INF 200 mcg HYDROmorphone 0.5 mg lactated ringers 200 mL * Agents Name O2 * Blood No blood administrations on file. Lines, Drains, and Airways Type Details Placement Removal Incision 09/26/24; 1650; Left ; groin 09/26/24 1650 by Candie Tatum RN Incision 09/26/24; 1700; Left , medial, lower; leg 09/26/24 1700 by Candie Tatum RN Incision 09/26/24; 1726; Left , medial; thigh 09/26/24 1726 by Linda Pollock RN Incision 07/19/24; 0946; Left ; second toe; 10/06/24; 0942 07/19/24 0946 by Alan Tobias RN 10/06/24 0942 by Liana Mccormack RN PIV 09/26/24; 1200; wztq-hud-ntaapq catheter system; 18 gauge; median cubital vein (antecubital fossa), left; [facility]; site symptomatic; 10/04/24; 1100 09/26/24 1200 by Pamela Eli RN 10/04/24 1100 by Liana Mccormack RN PIV 09/26/24; 1534; 20 gauge; basilic vein (medial side of arm), right; site symptomatic; 10/04/24; 1100 09/26/24 1534 by Pamela Eli RN 10/04/24 1100 by Liana Mccormack RN PIV 09/26/24; 1620; nmzj-pof-xxzjxf catheter system; 14 gauge; median cubital vein (antecubital fossa), right; Ultrasound Guidance; Pat Esther; 10/02/24; 1000 09/26/24 1620 by Jules Christopher CRNA 10/02/24 1000 by Cyndi Castro RN Urethral Catheter 09/26/24; 1620; Surg wei longer than 2 hours, Physician order, Need for intraoperative urine output monitoring; Immobility without alternative; indwelling double lumen catheter; hydrophilic coated, latex; 14; inserted at [facility]; 1; 5; 10; none; drainage bag; 10/03/24; [...] RN 10/02/24 1429 by Thuy Bennett RN Intentionally Retained Foreign Objects 09/27/24; 1708; DR. TORRES; Other (Comment) (GROIN); Left; WHITE WOUND VAC SPONGE X1; 09/29/24; 1446; Dr Ruiz 09/27/24 1708 by Ignacia Vazquez RN 09/29/24 1446 by Linda Pollock RN Arterial Line 09/28/24; 1200; radi al artery, left; placed in OR; 10/01/24; 1017 09/28/24 1200 by Candie Plata RN 10/01/24 1017 by Cyndi Castro RN Incision 09/28/24; 1329; Left , medial, upper; leg; vertical; duplicate wound; 10/05/24; 1019 09/28/24 1329 by Smooth Parson RN 10/05/24 1019 by Liana Mccormack RN NPWT 09/28/24 (planced in OR); 1735; Left; groin; 10/02/24 09/28/24 1735 by Candie Plata RN 10/02/24 0000 by Thuy Bennett RN ETT Mask Ventilation: Adjunct (2); ETT Type: Cuffed, Oral; ETT Size: 7.5 mm; Mac Blade: 3; Notes: Asleep, Pre-O2, Stylette; Attempts: 1; Laryngoscopy Grade: 1; ETT Placement Verified By: Auscultation, Capnometry, Visual; Secured at Teeth: 23 cm; Inserted by: Linda; Removal Date: 09/29/24; Removal Time: 15109/29/24 1424 by Marko Mckeon, SHEARING SHED WORKER 09/29/24 1515 by Marko Mckeon CRNA Intentionally Retained Foreign Objects 09/29/24; 1459; Dr [...] RN 10/04/24 1538 by Linda Pollock RN documented in this encounter Social History [...] in the past 12 m [facility], were you homeless or living in a prison (including now)? No 09/27/2024 IPV Inpatient Questions [...] Postprocedure Evaluation - Penny Mathias MD - 09/29/2024 4:42 PM EST Department of Anesthesiology Post-procedure Note Patient: Lux Dixon Jr. Procedure Summary Date: 09/29/24 Room / Location: [facility] OR [facility] MAIN OR Anesthesia Start: 1407 Anesthesia Stop: 1516 Procedures: @EXPLORATION W\O SURGICAL REPAIR, FEMORAL ARTERY - JENNIFER (WRVU 7.5) (Left: Leg) DEBRIDEMENT SKIN, SUBCU, MUSCLE, LOWER EXTREMITY (WRVU 2.7) (Left) Diagnosis: (explanted LLE infected graft) Surgeons: Taylor Ruiz MD Responsible Provider: Penny Mathias MD Anesthesia Type: general ASA Status: 4 All Anesthesia Providers: Anesthesiologist: Penny Mathias MD SHEARING SHED WORKER: Marko Mckeon CRNA Vitals Value Taken Time BP Temp 36.5 ??C (97.7 ??F) 09/29/24 1600 Pulse 74 09/29/24 1642 Resp 14 09/29/24 1642 SpO2 95 % 09/29/24 1642 Pain Level 0 09/29/24 1600 Vitals shown include unfiled device data. Patient Location: ICU Level of Consciousness: Awake and Alert Pain Management: Satisfactory Analgesia PONV: None Cardiovascular Status: At Baseline and Hemodynamically Stable Respiratory Status: At Baseline and Room Air Postoperative Fluid Status: Intravascular EUvolemia Possible Anesthetic Complications: NONE apparent at time of evaluation Final Primary Anesthesia Type: General (The anesthetic type performed was the same as planned.) Comments: Patient is awake, alert and comfortable. He tolerated procedure well without complication. Penny Mathias MD * Anesthesia Preprocedure Evaluation - Penny Mathias MD - 09/29/2024 1:22 PM EST Pre-Anesthesia Evaluation for: Lux Dixon Jr. a 49 y.o. male. Procedure(s): DEBRIDEMENT SKIN, SUBCU, MUSCLE, LOWER EXTREMITY (WRVU 2.7) Patient Active Problem List Diagnosis Date Noted ??? 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 (SVG to PDA closed 08/2013) 01/06/2012 ??? *Vascular graft infection, initial encounter 09/26/2024 ??? PAD (peripheral artery disease) 08/01/2024 ??? Peripheral artery disease 07/14/2024 ??? Critical [...] 3.51) performed by Thony Garcia MD at [facility] OR ??? PRO BYPASS GRAFT OTHR, FEM-TIBIAL Left 08/01/2024 @BYPASS GRAFT, FEM-ANT TIBIAL, -POST TIBIAL, -PERONEAL, -DP W\ SYNTHETIC CONDUIT (WRVU 23.66) performed by Lisette Maldonado MD at [facility] OR ??? PRO CABG, ARTERY-VEIN, SINGLE 01/04/2012 @CABG, VENOUS & ARTERIAL GRAFT;SINGLE VEIN GRAFT performed by INNA TOVAR at [facility] OR ? ? PRO DEBRIDEMENT SUBCUTANEOUS TISSUE 20 SQCM/< Left 09/27/2024 DEBRIDEMENT SKIN AND SUBCU, LOWER EXTREMITY (WRVU 1.01) performed by Hayley Torres MD at [facility] OR ??? PRO DRAIN LOWER LEG DEEP ABSC/HEMATOMA Left 09/26/2024 INCISION & DRAINAGE, LEG OR ANKLE, DEEP ABSCESS OR HEMATOMA (WRVU 5.23) performed by Hayley Torres MD at [facility] OR ??? PRO ENDOSCOPY W/VIDEO-ASST VEIN HARVEST, CABG 01/04/2012 ENDOSCOPIC HARVEST VEIN(S) FOR CABG performed by INNA TOVAR at [facility] OR ??? PRO EXCISION, INFEC GRAFT, EXTREMITY Left 09/26/2024 EXCISION OF INFECTED GRAFT FROM LOWER EXTREMITY (WRVU 9.53) performed by Hayley Torres MD at [facility] MAIN OR ? ? PRO I&D DEEP ABSCESS BURSA/HEMATOMA THIGH/KNEE REGION Left 09/26/2024 INCISION & DRAINAGE ABSCESS OR HEMATOMA, THIGH, KNEE SUPERFICIAL (WRVU 6.78) performed by Hayley Torres MD at [facility] MAIN OR ??? VS ARTERIOGRAM LOWER EXTREMITY VASCULAR SURGERY 07/20/2024 VS Arteriogram Lower Extremity Vascular Surgery 07/20/2024 Taylor Ruiz MD [facility] INTERVENTIONL RAD Social History Tobacco Use ??? Smoking status: Every Day Current packs/day: 0.00 Average packs/day: 1 pack/day for 25.0 years (25.0 ttl pk-yrs) Types: Cigarettes Start date: 12/28/1986 Last attempt to quit: 12/28/2011 Years since quittin.7 ??? Smokeless tobacco: Never Substance Use Topics ??? Alcohol use: No [...] with patient. Plan discussed with attending and SHEARING SHED WORKER. Anesthesia Screening documented in this encounter Plan of Treatment Upcoming Encounters Date Type Department Care Team (Late st Contact Info) Description 10/23/2024 1:00 PM EST Appointment XRay at [address] [place] [address] Isabela Hayward APRN [facility] [place] [address] 11/09/2024 1:30 PM EST Office Visit Infectious Disease at [facility] [place] [place] [phone] Isabela Hayward, INFORMATION SYSTEMS SPECIALIST [facility] [place] [address] 11/10/2024 10:00 AM EST Office [place] [phone] Dai Whitman, INFORMATION SYSTEMS SPECIALIST 11/21/2024 2:15 PM EST Office [place] [phone] Dayanara Grover MD [facility] [place] [address] documented as of this encounter Visit Diagnoses Not on filedocumented in this encounter Administered Medications Inactive Administered Medications - up to 3 most recent administrations Medication Order MAR Action Action Date Dose Rate Site HYDROmorphone (Dilaudid) (2 mg/mL) multi-dose injection solution Intravenous, PRN, Starting on Wed09/29/24 at 1439, Until Wed09/29/24 at 1516, Anesthesia Intra-op, Routine Given 09/29/2024 2:39 PM EST 0.5 mg lactated ringers infusion Intravenous, CONTINUOUS PRN, Starting on Wed09/29/24 at 1407, Until Wed09/29/24 at 1516, Anesthesia Intra-op New Bag 09/29/2024 2:07 PM EST lidocaine (pf) (Xylocaine) (20 mg/mL) 2% injection syringe Intravenous, PRN, Starting on Wed09/29/24 at 1418, Until Wed09/29/24 at 1516, Anesthesia Intra-op, Routine Given 09/29/2024 2:18 PM EST 100 mg ondansetron (pf) (Zofran) (2 mg/mL) injection Intravenous, PRN, Starting on Wed09/29/24 at 1455, Until Wed09/29/24 at 1516, Anesthesia Intra-op, Routine Given 09/29/2024 2:55 PM EST 4 mg PHENYLephrine (Erik-Synephrine) (80 mcg/mL) in sodium chloride 0.9% 250 mL infusion Intravenous, CONTINUOUS PRN, Starting on Wed09/29/24 at 1416, Until Wed09/29/24 at 1516, Anesthesia Intra-op, Routine New Bag 09/29/2024 2:16 PM EST 20 mcg/min 15 mL/hr propofoL (Diprivan) 10 mg/mL bolus injection (Anesthesia) Intravenous, PRN, Starting on Wed09/29/24 at 1420, Until Wed09/29/24 at 1516, Anesthesia Intra-op Given 09/29/2024 2:23 PM EST 50 mg Given 09/29/2024 2:20 PM EST 150 mg rocuronium (Zemuron) (10 mg/mL) multi-dose injection Intravenous, PRN, Starting on Wed09/29/24 at 1422, Until Wed09/29/24 at 1516, Anesthesia Intra-op, Routine Given 09/29/2024 2:22 PM EST 80 mg sugammadex (Bridion) 100 mg/mL injection Intravenous, PRN, Starting on Wed09/29/24 at 1455, Until Wed09/29/24 at 1516, Anesthesia Intra-op, Routine Given 09/29/2024 2:55 PM EST 200 mg documented in this encounter Care Teams Steel Manager Relationship Specialty Start Date End Date Charles Romero PA [facility] [place] [address] PCP - General Internal Medicine 09/18/24 documented as of this encounter
--- OUTSIDE RECORDS SUMMARY | 2024-10-20 12:42 | XMS_ITS | Encounter Summary ---
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 Name Role Phone Charles Romero Primary Care Provider + Reason for Visit * Auth/Cert (Routine) Specialty Diagnoses / Procedures Referred By William moses Referred To Contact Diagnoses Vascular graft infection, initial encounter Sepsis [A41.9] T82.7XXA Procedures EMERGENCY IPI Angel Gonsalez MD [facility] [place] [address] [facility] Referral ID Status Reason Start Date Expiration Date Visits Re quested Visits Authorized [id number] 1 1 Encounter Details Date Type Department Care Team (Late st Contact Info) Description 10/02/2024 1:14 PM EST - 10/02/2024 2:48 PM EST Surgery [place] [address] Hermila Mccormick MD [facility] [place] [address] DEBRIDEMENT SKIN, SUBCU, MUSCLE, LOWER EXTREMITY (WRVU 2.7) Social History Tobacco Use Types Packs/Day Years Used Date Smoking Tobacco: Every Day Cigarettes 12 02 Started: 12/28/1986; Last attempted to quit: 12/28/2011 Smokeless Tobacco: Never Alcohol Use Standard Drinks/Week Comments No 0 (1 standard drink = 0.6 oz pur e alcohol) [facility] Utilities Answer Date Recorded In the past [...] any time in the past 12 m [facility], were you homeless or living in a intermediate (including now)? No 09/27/2024 IPV Inpatient Questions [...] Sign Reading Time Taken Comments Blood Pressure 153/91 10/02/2024 12:00 PM EST Pulse 82 10/02/2024 12:00 PM EST Temperature 36.6 ??C (97.9 ??F) 10/02/2024 12:[address] Respiratory Rate 17 10/02/2024 12:00 PM EST Oxygen Saturation 98% 10/02/2024 12:00 PM EST Inhaled Oxygen Concentration - - [...] Operations/Major Procedures: 09/26/24: Explant of infected LEFT SOUND MIXER to below-knee popliteal artery PTFE bypass graft [...] 2nd toe amputation who was transferred from [facility] given concern for infected left fem-BK popliteal [...] pericardial patch and PTFE willard over the SOUND MIXER was unincorporated. - Resection of prior femoral [...] 2 tablespoons of dried fruit. Milk and iu-zfspy-yyomk yogurt have 15 grams of carbs in a serving. A serving is 1 cup of milk or 3/4 cup (6 oz) of zo-ryggx-rnhkp yogurt. Starchy vegetables have 15 grams of carbs in a serving. A serving is ?? cup of mashed potatoes or sweet potato; 1 cup winter squash; ?? of a small baked potato; ?? cup of cooked beans; or ?? cup cooked corn or green peas. Learn how much carbs to eat each day and at each meal. A dietitian or certified vehicle fire investigator can teach you how to keep track [...] was scheduled for a f/u nutrition evaluation. Turn Sewer met pt at bedside. Pt sharedthat his [...] Based on current findings- home (sister & feawcad-gj-epx's home) Consult Recommendations: No other consults recommended [...] Loss: None Karolyn Hudson MD Vascular Surgery, [id number] 10/09/24 Important Studies and Lab Data: Labs: [...] 05/29/2024, no significant changes. Procedure Limited - 99023. Doppler - 17227. Color Doppler - 14811. Suboptimal quality. This study is limited because [...] on series 3, image 8 and 641, 362, 721, 882. No other rim-enhancing fluid collection is seen. [...] PM Isabela Hayward APRN Infectious Disease at [facility] Arrive at: Home [phone] To view instructions for your video visit, click here, or visit this website: [email or web address] If you have not previously downloaded the [facility] patient portal software, [employer], please do so by clicking one of the links below or searching in your device's lobito store. [employer] devices 11/09/2024 1:30 PM Isabela Hayward APRN Infectious Disease at [facility] Arrive at: Respiratory Assistant Area [phone] 11/21/2024 2:15 PM Dayanara Grover MD Endocrinology at [facility] Arrive at: Respiratory Assistant Area 3A [phone] Future Orders Complete By Expires CBC (with Diff) [BSL181 Custom] 10/17/2024 12/11/2024 Process Instructions: INCLUDES: WBC, RBC, Hgb, Hct, Platelets, RBC Indices and Differential Scheduling Instructions: Comments: Questions: OPAT: Order / Recommendation for Post Discharge IV Antibiotic Management [BTK006 CPT(R)] As directed Process Instructions: If no progress note charted, please enter Clinical details in comments. Scheduling Instructions: Comments: - If this order was signed greater than 72 hours prior to [facility] discharge, please call to confirm the accuracy of this order. Please Fax all results to: [facility] Program Infectious Disease Section [facility], [place] [address] FAX: - After hours, please contact the Infectious Disease Physician sales person at . - Line care instructions - see flush/heparin orders. Facilities may follow organizational policies/practices regarding heparin. - care home for medication administration/supervisor shearing and catheter care/maintenance authorized. - CVC/PICC Dressing Change weekly and PRN Please use CHG or Bio Patch RN: Please care for PICC line including dressing changes weekly and prn. Please draw labs every Wednesday and PRN and fax results to [facility] at [phone]. Please draw labs off PICC line. [facility]. Please RN visit for IV ABX teaching and ongoing assessment. Correction for Medication Administration/Hookup and catheter care/maintenance: - Teach Patient/Caregiver goals/self-monitoring/therapy administration to independence per the Nursing Care Plan. - care home visit frequency; initial, weekly and 2 PRN [...] Amaya Hernandez MD Referral for Outpatient Antibiotics [YFN6818 CPT(R)] As directed Process Instructions: Scheduling Instructions: [...] Jr. for admission to Home Health. [address] [facility] [address] Phone Number: [phone] (home) Date of : 1975 Inpatient DOCUMENTATION FOR VNA SERVICES (INCLUDING THOSE PATIENTS WITH MEDICARE COVERAGE REQUIRING HOME VNA SERVICES AND/OR HOSPICE SERVICES) PATIENT'S LOCATION: Geovanna Dixon Jr. [address] [facility] [address] [phone] (home) Cell: Telephone Information: Anaesthesiologist's Name: Geovanna In discussion with the attending physician, it is certified that this patient is under their care and that they, or a Nurse Practitioner, Clinical Nurse specialist or Physician Supervisor Furnace Room who is working directly with them, had [...] for managing ADLs. HOME HEALTH CARE AGENCY: [facility]. [address] [place] [address] START OF CARE: within 24-48 hours of discharge Patient has Medicare Please note that any additional orders needs or changes will need to be obtained from this patient's PCP: JUSTIN Roberson [address] [facility] [address] . All VNA agencies which cover the area of patient's residence have been reviewed, either verbally or in writing, andpatient/family have chosen the home health care agency noted. Questions: Disciplines Requested: Nursing Physical Therapy Occupational Therapy Recurring Lab Work Interval Expires CBC (with Diff) [BKJ214 Custom] Once a week until 12/10/2024 12/10/2024 [...] For any problems or questions please call [phone] For issues on weeknights after 5pm and weekends please call [phone] and ask for the Vascular Fellow sales person. Discharge Medications: Your Medications New Medications Dose [...] - See Instructions). FLUSH PROTOCOL WITH MEDICATIONS ([facility]): Before med infusion: flush with NS 10 [...] - See Instructions). FLUSH PROTOCOL WITH MEDICATIONS ([facility]): Before med infusion: flush with NS 10 [...] can get this completed at 3L at [facility] prior to your scheduled appointment. Stop atorvastatin [...] For any problems or questions please call [phone] For issues on weeknights after 5pm and weekends please call [phone] and ask for the Vascular Fellow sales person. documented in this encounter Discharge Instructions * [...] 2 tablespoons of dried fruit. Milk and sa-qcfxb-idpka yogurt have 15 grams of carbs in a serving. A serving is 1 cup of milk or 3/4 cup (6 oz) of op-efrun-wpxqx yogurt. Starchy vegetables have 15 grams of carbs in a serving. A serving is ?? cup of mashed potatoes or sweet potato; 1 cup winter squash; ?? of a small baked potato; ?? cup of cooked beans; or ?? cup cooked corn or green peas. Learn how much carbs to eat each day and at each meal. A dietitian or certified vehicle fire investigator can teach you how to keep track [...] can get this completed at 3L at [facility] prior to your scheduled appointment. Stop atorvastatin [...] For any problems or questions please call [phone] For issues on weeknights after 5pm and weekends please call [phone] and ask for the Vascular Fellow sales person. documented in this encounter Medications at Time [...] - See Instructions). FLUSH PROTOCOL WITH MEDICATIONS ([facility]): Before med infusion: flush with NS 10 [...] - See Instructions). FLUSH PROTOCOL WITH MEDICATIONS ([facility]): Before med infusion: flush with NS 10 [...] to contact. Reviewed roles and responsibilities of CALLIOPE PLAYER and infusion vendor. Contact information for ID and Vascular team/clinic, CALLIOPE PLAYER and infusion vendor given to pt. Discussed f/u appointments in ID 5C clinic, telephone and tele health. Pt verbalized understanding. All questions answered. IV & PO ABX Medications: Daptomycin 700mg IV daily Start/anticipated end date: 10/10/24-11/10/24 CALLIOPE PLAYER: Bao Infusion vendor: [facility] Care IV Access: 4 Fr. [...] 2 tablespoons of dried fruit. Milk and il-phqqu-ehwwi yogurt have 15 grams of carbs in a serving. A serving is 1 cup of milk or 3/4 cup (6 oz) of ir-fbeno-pbseb yogurt. Starchy vegetables have 15 grams of carbs in a serving. A serving is ?? cup of mashed potatoes or sweet potato; 1 cup winter squash; ?? of a small baked potato; ?? cup of cooked beans; or ?? cup cooked corn or green peas. Learn how much carbs to eat each day and at each meal. A dietitian or certified vehicle fire investigator can teach you how to keep track [...] this time. OT to complete orders. Pager: [phone] Fabián Burrows OT 10/09/2024 Occupational Therapy Rehabilitation Department IR * Karolyn Hudson MD - 10/09/2024 12:57 [...] Loss: None Karolyn Hudson MD Vascular Surgery, 8817 10/09/24 * Terry Jimenez, PT - 10/09/2024 12:02 PM EST Physical Therapy Visit #2 Patient profile: Geovanna Dixon Jr. is a 49 y.o. male with a history of HTN, HLD, NSTEMI, CAD s/p CABG (12/2011), DM,obesity, PAD s/p L iliofem endart and L fem-BK pop bypass and L 2nd toe amputation who was transferred from [facility], 09/26/24 given concern for infected left fem-BK popliteal PTFE bypass. He is now s/p an explant of an infected left femoral-below knee popliteal artery bypass graft (09/26), I/D groin abscess (09/27), L GSV harvest, vein patch angioplasty, L SOUND MIXER and BK pop w/ sartorius flap L fem, I/D, 09/29 L sartorius flap revision, vac change. 10/03/24 NPO at [facility] for OR wound exploration. Wound vac off [...] He mentions he'll stay with sister and vzqdbiu-rv-vta upon DC. Pt resting in bed upon [...] up with R and down with L, hvmw-oh-whdq. Balance: Sitting: NORMAL- EOB unsupported good postural [...] Based on current findings- home (sister & iklyiww-pi-emx's home) Consult Recommendations: No other consults recommended [...] 15 (TE-F) minutes TERRY JIMENEZ PT Pager: [phone] Physical Therapy Inpatient Rehabilitation Department * María [...] 2nd toe amputation who was transferred from [facility] given concern for infected left fem-BK popliteal [...] smoking 1 week ago. He presented to [facility] on 09/26 and went to the OR [...] JOSE insulin lispro 0-11 Units Subcutaneous TID acetaminophen 975 mg Oral Q6H JOSE atorvastatin 80 mg Oral QPM aspirin EC 81 mg Oral Daily methylphenidate 20 mg Oral TID pantoprazole EC 40 mg Oral Daily venlafaxine XR 225 mg Oral Daily heparin (porcine) 5,000 Units Subcutaneous Q8H [facility] lidocaine 1 patch Transdermal Q24H Operations this [...] Procedure Component Value - Date/Time Blood culture [[id number]] (Abnormal) (Susceptibility) Collected: 09/26/24 1422 Lab Status: Edited Result - FINAL Specimen: Blood, Venous Updated: 10/07/24 0740 Blood Culture Methicillin Resistant Staphylococcus aureus Comment: detected by PCR Isolate saved. If future testing is required, contact the Microbiology Evp Strategy. Gram Stain Aerobic Bottle: Gram positive cocci in clusters Susceptibility Methicillin Resistant Staphylococcus aureus MINIMUM INHIBITORY CONCENTRATION VITEK 2 METHOD Clindamycin Resistant Daptomycin Susceptible Gentamicin Susceptible [1] Linezolid Susceptible Oxacillin Resistant Trimethoprim/Sulfa Susceptible Vancomycin Susceptible [1] Gentamicin is not appropriate for monotherapy for gram-positive infections. AFB culture [[id number]] Collected: 09/27/24 1654 Lab Status: Preliminary result Specimen: Tissue from Thigh, Left Updated: 10/05/24 1201 Acid Fast Bacilli Culture No acid fast bacilli isolated at 1 week. Acid Fast Stain No acid fast bacilli seen Blood culture [[id number]] Collected: 09/29/242123 Lab Status: Final result Specimen: Blood, Venous Updated: 10/04/24 2301 Blood Culture No growth at 120 hours Blood culture [[id number]] Collected: 09/29/242123 Lab Status: Final result Specimen: Blood, Venous Updated: 10/04/24 2301 Blood Culture No growth at 120 hours AFB culture [[id number]] Collected: 09/26/24 1702 Lab Status: Preliminary result Specimen: Abscess from Knee, Left Updated: 10/04/24 1201 Acid Fast Bacilli Culture No acid fast bacilli isolated at 1 week. Acid Fast Stain No acid fast bacilli seen Blood culture [[id number]] Collected: 09/28/24 1749 Lab Status: Final result [...] 2nd toe amputation who was transferred from [facility] given concern for infected left fem-BK popliteal PTFE bypass. He is now s/p an explantof an infected left femoral-below knee popliteal artery bypass graft (09/26), I/D groin abscess (), L GSV harvest, vein patch angioplasty, L SOUND MIXER and BK pop w/ sartorius flap L fem, I/D, 09/29 L sartorius flap revision, vac change. 10/09/24: Progressing well post surgically. Will pull medial thigh drain today, retain sartorius flap drain along with wound vac x 3 sponges ([facility] has approved for home vac) and WTD [...] PRN PICC dressing change completed as per [facility] protocol. Positive pressure displacement connector (Max Plus) [...] 2nd toe amputation who was transferred from [facility] given concern for infected left fem-BK popliteal [...] smoking 1 week ago. He presented to [facility] on 09/26 and went to the OR [...] and PT signals present Labs: Recent Labs 10/08/24710/07/24510/06/24 0003 WBC 10.35* 11.27* 12.26* HGB 10.2* 10.1* 10.1* HCT 31.7* 30.9* 30.9* PLATELET 778* 789* 772* Recent Labs 10/08/24710/07/246 10/06/24 0003 NA 135 139 139 K 3.8 4.0 4.3 CL 101 104 103 CO2 25 25 22 BUN 19 18 17 CREATININE 0.60* 0.61* 0.85 PHOS 3.4 4.2 4.3 CALCIUM 9.2 9.0 8.8 Microbiology: Microbiology Results (last 7 days) Procedure Component Value - Date/Time Blood culture [[id number]] (Abnormal) (Susceptibility) Collected: 09/26/24 1422 Lab Status: Edited Result - FINAL Specimen: Blood, Venous Updated: 10/07/24 0740 Blood Culture Methicillin Resistant Staphylococcus aureus Comment: detected by PCR Isolate saved. If future testing is required, contact the Microbiology Evp Strategy. Gram Stain Aerobic Bottle: Gram positive cocci in clusters Susceptibility Methicillin Resistant Staphylococcus aureus MINIMUM INHIBITORY CONCENTRATION VITEK 2 METHOD Clindamycin Resistant Daptomycin Susceptible Gentamicin Susceptible [1] Linezolid Susceptible Oxacillin Resistant Trimethoprim/Sulfa Susceptible Vancomycin Susceptible [1] Gentamicin is not appropriate for monotherapy for gram-positive infections. AFB culture [[id number]] Collected: 09/27/24 165 Lab Status: Preliminary result Specimen: Tissue from Thigh, Left Updated: 10/05/24 1201 Acid Fast Bacilli Culture No acid fast bacilli isolated at 1 week. Acid Fast Stain No acid fast bacilli seen Blood culture [[id number]] Collected: 09/29/242123 Lab Status: Final result Specimen: Blood, Venous Updated: 10/04/24 2301 Blood Culture No growth at 120 hours Blood culture [[id number]] Collected: 09/29/242123 Lab Status: Final result Specimen: Blood, Venous Updated: 10/04/24 2301 Blood Culture No growth at 120 hours AFB culture [[id number]] Collected: 09/26/24 1702 Lab Status: Preliminary result Specimen: Abscess from Knee, Left Updated: 10/04/24 1201 Acid Fast Bacilli Culture No acid fast bacilli isolated at 1 week. Acid Fast Stain No acid fast bacilli seen Blood culture [[id number]] Collected: 09/28/24 1749 Lab Status: Final result Specimen: Blood, Venous Updated: 10/03/24 1901 Blood Culture No growth at 120 hours Blood culture [[id number]] (Abnormal) Collected: 09/27/24 2133 Lab Status: Final result Specimen: Blood, Venous Updated: 10/02/24 0804 Blood Culture Methicillin Resistant Staphylococcus aureus Comment: Susceptibilities previously reported. Gram Stain Aerobic Bottle: Gram positive cocci in clusters Tissue Culture, Aerobic & Anaerobic [[id number]] Collected: 09/27/241653 Lab Status: Final result Specimen: Tissue from Thigh, Left Updated: 10/01/24 1554 Narrative: The following orders were created for panel order Tissue Culture, Aerobic & Anaerobic. Procedure Abnormality Status --------- ------ Tissue Culture, Aerobic ...[[id number]] Anaerobic Culture[[id number]] Final result Please view results for these tests on the individual orders. Anaerobic Culture [[id number]] Collected: 09/27/241653 Lab Status: Final result Specimen: Tissue from Thigh, Left Updated: 10/01/24 1554 Anaerobic Culture No anaerobic organisms isolated Tissue Culture, Aerobic Only [[id number]] (Abnormal) (Susceptibility) Collected: 09/27/241653 Lab Status: Final [...] 2nd toe amputation who was transferred from [facility] given concern for infected left fem-BK popliteal PTFE bypass. He is now s/p an explantof an infected left femoral-below knee popliteal artery bypass graft (09/26), I/D groin abscess (), L GSV harvest, vein patch angioplasty, L SOUND MIXER and BK pop w/ sartorius flap L [...] 81mg daily Vibha Benson APRN 10/08/2024 Pager: [phone] * Vibha Benson APRN - 10/07/2024 8:52 AM EST Images from the original note were not included. Vascular Surgery Progress Note Geovanna Dixon Jr. is a 49 y.o. 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 He presented to [facility] [place] and went to the OR [...] Procedure Component Value - Date/Time Blood culture [[id number]] (Abnormal) (Susceptibility) Collected: 09/26/24 1422 Lab Status: Edited Result - FINAL Specimen: Blood, Venous Updated: 10/07/24 0740 Blood Culture Methicillin Resistant Staphylococcus aureus Comment: detected by PCR Isolate saved. If future testing is required, contact the Microbiology Evp Strategy. Gram Stain Aerobic Bottle: Gram positive cocci in clusters Susceptibility Methicillin Resistant Staphylococcus aureus MINIMUM INHIBITORY CONCENTRATION VITEK 2 METHOD Clindamycin Resistant Daptomycin Susceptible Gentamicin Susceptible [1] Linezolid Susceptible Oxacillin Resistant Trimethoprim/Sulfa Susceptible Vancomycin Susceptible [1] Gentamicin is not appropriate for monotherapy for gram-positive infections. AFB culture [[id number]] Collected: 09/27/24 1654 Lab Status: Preliminary result Specimen: Tissue from Thigh, Left Updated: 10/05/24 1201 Acid Fast Bacilli Culture No acid fast bacilli isolated at 1 week. Acid Fast Stain No acid fast bacilli seen Blood culture [[id number]] Collected: 09/29/242123 Lab Status: Final result Specimen: Blood, Venous Updated: 10/04/24 2301 Blood Culture No growth at 120 hours Blood culture [[id number]] Collected: 09/29/242123 Lab Status: Final result Specimen: Blood, Venous Updated: 10/04/24 2301 Blood Culture No growth at 120 hours AFB culture [[id number]] Collected: 09/26/24 1702 Lab Status: Preliminary result Specimen: Abscess from Knee, Left Updated: 10/04/24 1201 Acid Fast Bacilli Culture No acid fast bacilli isolated at 1 week. Acid Fast Stain No acid fast bacilli seen Blood culture [[id number]] Collected: 09/28/24 1749 Lab Status: Final result Specimen: Blood, Venous Updated: 10/03/24 1901 Blood Culture No growth at 120 hours Blood culture [[id number]] (Abnormal) Collected: 09/27/24 2133 Lab Status: Final result Specimen: Blood, Venous Updated: 10/02/24 0804 Blood Culture Methicillin Resistant Staphylococcus aureus Comment: Susceptibilities previously reported. Gram Stain Aerobic Bottle: Gram positive cocci in clusters Tissue Culture, Aerobic & Anaerobic [[id number]] Collected: 09/27/24 165 Lab Status: Final result Specimen: Tissue from Thigh, Left Updated: 10/01/24 1554 Narrative: The following orders were created for panel order Tissue Culture, Aerobic & Anaerobic. Procedure Abnormality Status --------- ------ Tissue Culture, Aerobic ...[[id number]] Anaerobic Culture[[id number]] Final result Please view results for these tests on the individual orders. Anaerobic Culture [[id number]] Collected: 09/27/24 165 Lab Status: Final result Specimen: Tissue from Thigh, Left Updated: 10/01/24 1554 Anaerobic Culture No anaerobic organisms isolated Tissue Culture, Aerobic Only [[id number]] (Abnormal) (Susceptibility) Collected: 09/27/24 165 Lab Status: [...] is considered susceptible to doxycycline. Blood culture [[id number]] (Abnormal) Collected: 09/26/24 1845 Lab Status: Final result Specimen: Blood, Venous Updated: 10/01/24 0658 Blood Culture Methicillin Resistant Staphylococcus aureus Comment: isolated. Susceptibilities previously reported. Gram Stain Aerobic Bottle: Gram positive cocci in clusters Abscess/Wound Aspirate Culture, Aerobic & Anaerobic [[id number]] (Abnormal) Collected: 09/26/241649 Lab Status: Final result Specimen: Abscess from Groin, Left Updated: 09/30/24 155 Narrative: The following orders were created for panel order Abscess/Wound Aspirate Culture, Aerobic & Anaerobic. Procedure Abnormality Status --------- ------ Abscess/Wound Aspirate C...[[id number]] Abnormal Final result Anaerobic Culture[[id number]] Final result Please view results for these tests on the individual orders. Anaerobic Culture [[id number]] Collected: 09/26/24 165 Lab Status: Final result Specimen: Abscess from Groin, Left Updated: 09/30/24 1551 Anaerobic Culture No anaerobic organisms isolated Abscess/Wound Aspirate Culture, Aerobic & Anaerobic [[id number]] (Abnormal) Collected: 09/26/24 1702 Lab Status: Final result Specimen: Abscess from Knee, Left Updated: 09/30/24 1551 Narrative: The following orders were created for panel order Abscess/Wound Aspirate Culture, Aerobic & Anaerobic. Procedure Abnormality Status --------- ------ Abscess/Wound Aspirate C...[[id number]] Abnormal Final result Anaerobic Culture[[id number]] Final result Please view results for these tests on the individual orders. Anaerobic Culture [[id number]] Collected: 09/26/24 1702 Lab Status: Final result Specimen: Abscess from Knee, Left Updated: 09/30/24 1551 Anaerobic Culture No anaerobic organisms isolated Sonicated Tissue/Implant Culture [[id number]] (Abnormal) Collected: 09/26/24 1716 Lab Status: Final result Specimen: Vascular Graft from Leg, Left Updated: 09/30/24 1349 Sonicated Tissue/Implant Culture Methicillin Resistant Staphylococcus aureus Comment: isolated from broth culture. Susceptibilities previously reported. Abscess/Wound Aspirate Culture, Aerobic Only [[id number]] (Abnormal) (Susceptibility) Collected: 09/26/24 1702 Lab Status: [...] to doxycycline. Abscess/Wound Aspirate Culture, Aerobic Only [[id number]] (Abnormal) (Susceptibility) Collected: 09/26/24 1650 Lab Status: [...] Studies: - None Assessment & Plan: Geovanna Viet Dixon Jr. is a 49 y.o. male with a history of HTN, HLD, NSTEMI, CAD s/p CABG (12/2011), DM,obesity, PAD s/p L iliofem endart and L fem-BK pop bypass and L 2nd toe amputation who was transferred from [facility] given concern for infected left fem-BK popliteal PTFE bypass. He is now s/p an explantof an infected left femoral-below knee popliteal artery bypass graft (09/26), I/D groin abscess (), L GSV harvest, vein patch angioplasty, L SOUND MIXER and BK pop w/ sartorius flap L [...] 81mg daily Vibha Benson APRN 10/07/2024 Pager: [phone] * Karina-Jessica Mcrae, PT - 10/06/2024 3:21 PM EST 10/06/24 4227 Evaluation & Treatment Document Type contact Comment, [...] 2nd toe amputation who was transferred from [facility] given concern for infected left fem-BK popliteal [...] smoking 1 week ago. [place] [facility] went to the OR [...] Procedure Component Value - Date/Time AFB culture [[id number]] Collected: 09/27/241653 Lab Status: Preliminary result Specimen: Tissue from Thigh, Left Updated: 10/05/24 1201 Acid Fast Bacilli Culture No acid fast bacilli isolated at 1 week. Acid Fast Stain No acid fast bacilli seen Blood culture [[id number]] Collected: 09/29/242123 Lab Status: Final result Specimen: Blood, Venous Updated: 10/04/24 2301 Blood Culture No growth at 120 hours Blood culture [[id number]] Collected: 09/29/242123 Lab Status: Final result Specimen: Blood, Venous Updated: 10/04/24 2301 Blood Culture No growth at 120 hours AFB culture [[id number]] Collected: 09/26/24 170 Lab Status: Preliminary result Specimen: Abscess from Knee, Left Updated: 10/04/24 1201 Acid Fast Bacilli Culture No acid fast bacilli isolated at 1 week. Acid Fast Stain No acid fast bacilli seen Blood culture [[id number]] Collected: 09/28/24 1749 Lab Status: Final result Specimen: Blood, Venous Updated: 10/03/24 1901 Blood Culture No growth at 120 hours Blood culture [[id number]] (Abnormal) Collected: 09/27/242132 Lab Status: Final result Specimen: Blood, Venous Updated: 10/02/24 0804 Blood Culture Methicillin Resistant Staphylococcus aureus Comment: Susceptibilities previously reported. Gram Stain Aerobic Bottle: Gram positive cocci in clusters Tissue Culture, Aerobic & Anaerobic [[id number]] Collected: 09/27/241653 Lab Status: Final result Specimen: Tissue from Thigh, Left Updated: 10/01/24 1554 Narrative: The following orders were created for panel order Tissue Culture, Aerobic & Anaerobic. Procedure Abnormality Status --------- ------ Tissue Culture, Aerobic ...[[id number]] Anaerobic Culture[[id number]] Final result Please view results for these tests on the individual orders. Anaerobic Culture [[id number]] Collected: 09/27/241653 Lab Status: Final result Specimen: Tissue from Thigh, Left Updated: 10/01/24 1554 Anaerobic Culture No anaerobic organisms isolated Tissue Culture, Aerobic Only [[id number]] (Abnormal) (Susceptibility) Collected: 09/27/24 1654 Lab Status: [...] is considered susceptible to doxycycline. Blood culture [[id number]] (Abnormal) (Susceptibility) Collected: 09/26/24 1422 Lab Status: Edited Specimen: Blood, Venous Updated: 10/01/24 0658 Blood Culture Methicillin Resistant Staphylococcus aureus Comment: detected by PCR Isolate saved. If future testing is required, contact the Microbiology Evp Strategy. Gram Stain Aerobic Bottle: Gram positive cocci in clusters Susceptibility Methicillin Resistant Staphylococcus aureus VITEK 2 METHOD Clindamycin Resistant Gentamicin Susceptible [1] Linezolid Susceptible Oxacillin Resistant Trimethoprim/Sulfa Susceptible Vancomycin Susceptible [1] Gentamicin is not appropriate for monotherapy for gram-positive infections. Blood culture [[id number]] (Abnormal) Collected: 09/26/24 1845 Lab Status: Final result Specimen: Blood, Venous Updated: 10/01/24 0658 Blood Culture Methicillin Resistant Staphylococcus aureus Comment: isolated. Susceptibilities previously reported. Gram Stain Aerobic Bottle: Gram positive cocci in clusters Abscess/Wound Aspirate Culture, Aerobic & Anaerobic [[id number]] (Abnormal) Collected: 09/26/24 165 Lab Status: Final result Specimen: Abscess from Groin, Left Updated: 09/30/24 1551 Narrative: The following orders were created for panel order Abscess/Wound Aspirate Culture, Aerobic & Anaerobic. Procedure Abnormality Status --------- ------ Abscess/Wound Aspirate C...[[id number]] Abnormal Final result Anaerobic Culture[[id number]] Final result Please view results for these tests on the individual orders. Anaerobic Culture [[id number]] Collected: 09/26/24 165 Lab Status: Final result Specimen: Abscess from Groin, Left Updated: 09/30/24 1551 Anaerobic Culture No anaerobic organisms isolated Abscess/Wound Aspirate Culture, Aerobic & Anaerobic [[id number]] (Abnormal) Collected: 09/26/24 170 Lab Status: Final result Specimen: Abscess from Knee, Left Updated: 09/30/24 1551 Narrative: The following orders were created for panel order Abscess/Wound Aspirate Culture, Aerobic & Anaerobic. Procedure Abnormality Status --------- ------ Abscess/Wound Aspirate C...[[id number]] Abnormal Final result Anaerobic Culture[[id number]] Final result Please view results for these tests on the individual orders. Anaerobic Culture [[id number]] Collected: 09/26/24 170 Lab Status: Final result Specimen: Abscess from Knee, Left Updated: 09/30/24 1551 Anaerobic Culture No anaerobic organisms isolated Sonicated Tissue/Implant Culture [[id number]] (Abnormal) Collected: 09/26/24 1716 Lab Status: Final result Specimen: Vascular Graft from Leg, Left Updated: 09/30/24 1349 Sonicated Tissue/Implant Culture Methicillin Resistant Staphylococcus aureus Comment: isolated from broth culture. Susceptibilities previously reported. Abscess/Wound Aspirate Culture, Aerobic Only [[id number]] (Abnormal) (Susceptibility) Collected: 09/26/24 170 Lab Status: [...] to doxycycline. Abscess/Wound Aspirate Culture, Aerobic Only [[id number]] (Abnormal) (Susceptibility) Collected: 09/26/24 1650 Lab Status: [...] 2nd toe amputation who was transferred from [facility] given concern for infected left fem-BK popliteal PTFE bypass. He is now s/p an explantof an infected left femoral-below knee popliteal artery bypass graft (09/26), I/D groin abscess (), L GSV harvest, vein patch angioplasty, L SOUND MIXER and BK pop w/ sartorius flap L [...] 81mg daily Benjamin Iniguez MD 10/06/2024 Pager: [phone] * Benjamin Iniguez MD - 10/05/2024 7:42 AM EST Images from the original note were not included. Vascular Surgery Progress Note Geovanna Dixon Jr. is a 49 y.o. 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 [place] [facility] and went to the OR [...] BID insulin lispro 1-6 Units Subcutaneous Q4H [facility] insulin lispro 0-11 Units Subcutaneous TID WC [...] 4.4 4.1 CL 105 105 103 CO2 * BUN 13 19 15 CREATININE 0.55* 0.56* 0.51* PHOS 4.2 3.7 3.5 CALCIUM 9.0 8.7 8.4* Microbiology: Microbiology Results (last 7 days) Procedure Component Value - Date/Time Blood culture [[id number]] Collected: 09/29/242123 Lab Status: Final result Specimen: Blood, Venous Updated: 10/04/24 230 Blood Culture No growth at 120 hours Blood culture [[id number]] Collected: 09/29/242123 Lab Status: Final result Specimen: Blood, Venous Updated: 10/04/24 230 Blood Culture No growth at 120 hours AFB culture [[id number]] Collected: 09/26/24 1702 Lab Status: Preliminary result Specimen: Abscess from Knee, Left Updated: 10/04/24 1201 Acid Fast Bacilli Culture No acid fast bacilli isolated at 1 week. Acid Fast Stain No acid fast bacilli seen Blood culture [[id number]] Collected: 09/28/24 1749 Lab Status: Final result Specimen: Blood, Venous Updated: 10/03/24 1901 Blood Culture No growth at 120 hours Blood culture [[id number]] (Abnormal) Collected: 09/27/242132 Lab Status: Final result Specimen: Blood, Venous Updated: 10/02/24 0804 Blood Culture Methicillin Resistant Staphylococcus aureus Comment: Susceptibilities previously reported. Gram Stain Aerobic Bottle: Gram positive cocci in clusters Tissue Culture, Aerobic & Anaerobic [[id number]] Collected: 09/27/241653 Lab Status: Final result Specimen: Tissue from Thigh, Left Updated: 10/01/24 1554 Narrative: The following orders were created for panel order Tissue Culture, Aerobic & Anaerobic. Procedure Abnormality Status --------- ------ Tissue Culture, Aerobic ...[[id number]] Anaerobic Culture[[id number]] Final result Please view results for these tests on the individual orders. Anaerobic Culture [[id number]] Collected: 09/27/241653 Lab Status: Final result Specimen: Tissue from Thigh, Left Updated: 10/01/24 1554 Anaerobic Culture No anaerobic organisms isolated Tissue Culture, Aerobic Only [[id number]] (Abnormal) (Susceptibility) Collected: 09/27/241653 Lab Status: Final [...] is considered susceptible to doxycycline. Blood culture [[id number]] (Abnormal) (Susceptibility) Collected: 09/26/24 1422 Lab Status: Final result Specimen: Blood, Venous Updated: 10/01/24 0658 Blood Culture Methicillin Resistant Staphylococcus aureus Comment: detected by PCR Isolate saved. If future testing is required, contact the Microbiology Evp Strategy. Gram Stain Aerobic Bottle: Gram positive cocci in clusters Susceptibility Methicillin Resistant Staphylococcus aureus VITEK 2 METHOD Clindamycin Resistant Gentamicin Susceptible [1] Linezolid Susceptible Oxacillin Resistant Trimethoprim/Sulfa Susceptible Vancomycin Susceptible [1] Gentamicin is not appropriate for monotherapy for gram-positive infections. Blood culture [[id number]] (Abnormal) Collected: 09/26/24 1845 Lab Status: Final result Specimen: Blood, Venous Updated: 10/01/24 0658 Blood Culture Methicillin Resistant Staphylococcus aureus Comment: isolated. Susceptibilities previously reported. Gram Stain Aerobic Bottle: Gram positive cocci in clusters Abscess/Wound Aspirate Culture, Aerobic & Anaerobic [[id number]] (Abnormal) Collected: 09/26/241649 Lab Status: Final result Specimen: Abscess from Groin, Left Updated: 09/30/24 1551 Narrative: The following orders were created for panel order Abscess/Wound Aspirate Culture, Aerobic & Anaerobic. Procedure Abnormality Status --------- ------ Abscess/Wound Aspirate C...[[id number]] Abnormal Final result Anaerobic Culture[[id number]] Final result Please view results for these tests on the individual orders. Anaerobic Culture [[id number]] Collected: 09/26/241649 Lab Status: Final result Specimen: Abscess from Groin, Left Updated: 09/30/24 1551 Anaerobic Culture No anaerobic organisms isolated Abscess/Wound Aspirate Culture, Aerobic & Anaerobic [[id number]] (Abnormal) Collected: 09/26/24 170 Lab Status: Final result Specimen: Abscess from Knee, Left Updated: 09/30/24 1551 Narrative: The following orders were created for panel order Abscess/Wound Aspirate Culture, Aerobic & Anaerobic. Procedure Abnormality Status --------- ------ Abscess/Wound Aspirate C...[[id number]] Abnormal Final result Anaerobic Culture[[id number]] Final result Please view results for these tests on the individual orders. Anaerobic Culture [[id number]] Collected: 09/26/24 170 Lab Status: Final result Specimen: Abscess from Knee, Left Updated: 09/30/24 1551 Anaerobic Culture No anaerobic organisms isolated Sonicated Tissue/Implant Culture [[id number]] (Abnormal) Collected: 09/26/24 1716 Lab Status: Final result Specimen: Vascular Graft from Leg, Left Updated: 09/30/24 1349 Sonicated Tissue/Implant Culture Methicillin Resistant Staphylococcus aureus Comment: isolated from broth culture. Susceptibilities previously reported. Abscess/Wound Aspirate Culture, Aerobic Only [[id number]] (Abnormal) (Susceptibility) Collected: 09/26/24 170 Lab Status: [...] to doxycycline. Abscess/Wound Aspirate Culture, Aerobic Only [[id number]] (Abnormal) (Susceptibility) Collected: 09/26/24 165 Lab Status: [...] is considered susceptible to doxycycline. AFB culture [[id number]] Collected: 09/27/241653 Lab Status: Preliminary result Specimen: Tissue from Thigh, Left Updated: 09/29/24 1201 Acid Fast Bacilli Culture No acid fast bacilli isolated to date. Acid Fast Stain No acid fast bacilli seen Fungus culture [[id number]] Collected: 09/27/241653 Lab Status: Preliminary result Specimen: [...] 2nd toe amputation who was transferred from [facility] given concern for infected left fem-BK popliteal PTFE bypass. He is now s/p an explantof an infected left femoral-below knee popliteal artery bypass graft (09/26), I/D groin abscess (), L GSV harvest, vein patch angioplasty, L SOUND MIXER and BK pop w/ sartorius flap L [...] 81mg daily Benjamin Iniguez MD 10/05/2024 Pager: [phone] Associated attestation - Hayley Torres MD - [...] Ramirez MD Vascular Surgery 10/04/24 * Lynne eLavitt MD - 10/04/2024 7:03 PM EST INFECTIOUS [...] 3.4* CL 105 105 -- 103 CO2 23 24 -- 24 BUN 11 10 -- 9* CREATININE 0.49* 0.47* -- 0.48* Recent Labs 09/26/24 1439 AST 16 ALT 14 ALKPHOS 160* BILITOT 0.4 BILIDIR 0.2 Microbiology: 09/26 BC- MRSA 09/27 BC- MRSA 09/28 BC- NGTD 09/29 BC- NGTD 09/27 Tissue culture -MRSA 09/26- Sonicated tissue, vascular graft-MRSA 09/26 knee aspirate- MRSA Antimicrobials: Vancomycin- Imaging/diagnostics: CT lower avhjniqba34/20 IMPRESSION: 1. Interval explant of LEFT femoral [...] No significant valvular regurgitation. Impression: Geovanna Dixon Jr. is a 49-year-old male who underwent a left lower extremity gvjgcsr-vi-whgqh-kneepopliteal artery bypass on August 01, 2024, and [...] concerns. Please page ID Green team (pager [phone]) with questions or concerns. Lynne Leavitt MD Fellow, Infectious Disease Pager: [phone] Epic Chat 10/02/2024 This note was created using [employer]) voice recognition software. Associated attestation - Amaya [...] Procedure Component Value - Date/Time Blood culture [[id number]] Collected: 09/29/242123 Lab Status: Final result Specimen: Blood, Venous Updated: 10/04/24 2301 Blood Culture No growth at 120 hours Blood culture [[id number]] Collected: 09/29/242123 Lab Status: Final result Specimen: Blood, Venous Updated: 10/04/24 2301 Blood Culture No growth at 120 hours AFB culture [[id number]] Collected: 09/26/24 170 Lab Status: Preliminary result Specimen: Abscess from Knee, Left Updated: 10/04/24 120 Acid Fast Bacilli Culture No acid fast bacilli isolated at 1 week. Acid Fast Stain No acid fast bacilli seen Blood culture [[id number]] Collected: 09/28/24 174 Lab Status: Final result Specimen: Blood, Venous Updated: 10/03/24 1901 Blood Culture No growth at 120 hours Blood culture [[id number]] (Abnormal) Collected: 09/27/242132 Lab Status: Final result Specimen: Blood, Venous Updated: 10/02/24 0804 Blood Culture Methicillin Resistant Staphylococcus aureus Comment: Susceptibilities previously reported. Gram Stain Aerobic Bottle: Gram positive cocci in clusters Tissue Culture, Aerobic & Anaerobic [[id number]] Collected: 09/27/241653 Lab Status: Final result Specimen: Tissue from Thigh, Left Updated: 10/01/24 155 Narrative: The following orders were created for panel order Tissue Culture, Aerobic & Anaerobic. Procedure Abnormality Status --------- ------ Tissue Culture, Aerobic ...[[id number]] Anaerobic Culture[[id number]] Final result Please view results for these tests on the individual orders. Anaerobic Culture [[id number]] Collected: 09/27/241653 Lab Status: Final result Specimen: Tissue from Thigh, Left Updated: 10/01/24 155 Anaerobic Culture No anaerobic organisms isolated Tissue Culture, Aerobic Only [[id number]] (Abnormal) (Susceptibility) Collected: 11/20/24 1654 Lab Status: [...] is considered susceptible to doxycycline. Blood culture [[id number]] (Abnormal) (Susceptibility) Collected: 09/26/24 1422 Lab Status: Final result Specimen: Blood, Venous Updated: 10/01/24 0658 Blood Culture Methicillin Resistant Staphylococcus aureus Comment: detected by PCR Isolate saved. If future testing is required, contact the Microbiology Evp Strategy. Gram Stain Aerobic Bottle: Gram positive cocci in clusters Susceptibility Methicillin Resistant Staphylococcus aureus VITEK 2 METHOD Clindamycin >=8.0 ug/ml Resistant Gentamicin <=0.5 ug/ml Susceptible [1] Linezolid 2.0 ug/ml Susceptible Oxacillin >=4.0 ug/ml Resistant Trimethoprim/Sulfa <=10.0 ug/ml Susceptible Vancomycin 1.0 ug/ml Susceptible [1] Gentamicin is not appropriate for monotherapy for gram-positive infections. Blood culture [[id number]] (Abnormal) Collected: 09/26/24 1845 Lab Status: Final result Specimen: Blood, Venous Updated: 10/01/24 0658 Blood Culture Methicillin Resistant Staphylococcus aureus Comment: isolated. Susceptibilities previously reported. Gram Stain Aerobic Bottle: Gram positive cocci in clusters Abscess/Wound Aspirate Culture, Aerobic & Anaerobic [[id number]] (Abnormal) Collected: 09/26/24 1650 Lab Status: Final result Specimen: Abscess from Groin, Left Updated: 09/30/24 1551 Narrative: The following orders were created for panel order Abscess/Wound Aspirate Culture, Aerobic & Anaerobic. Procedure Abnormality Status --------- ------ Abscess/Wound Aspirate C...[[id number]] Abnormal Final result Anaerobic Culture[[id number]] Final result Please view results for these tests on the individual orders. Anaerobic Culture [[id number]] Collected: 09/26/24 1650 Lab Status: Final result Specimen: Abscess from Groin, Left Updated: 09/30/24 1551 Anaerobic Culture No anaerobic organisms isolated Abscess/Wound Aspirate Culture, Aerobic & Anaerobic [[id number]] (Abnormal) Collected: 09/26/24 1702 Lab Status: Final result Specimen: Abscess from Knee, Left Updated: 09/30/24 1551 Narrative: The following orders were created for panel order Abscess/Wound Aspirate Culture, Aerobic & Anaerobic. Procedure Abnormality Status --------- ------ Abscess/Wound Aspirate C...[[id number]] Abnormal Final result Anaerobic Culture[[id number]] Final result Please view results for these tests on the individual orders. Anaerobic Culture [[id number]] Collected: 09/26/24 170 Lab Status: Final result Specimen: Abscess from Knee, Left Updated: 09/30/24 1551 Anaerobic Culture No anaerobic organisms isolated Sonicated Tissue/Implant Culture [[id number]] (Abnormal) Collected: 09/26/24 1716 Lab Status: Final result Specimen: Vascular Graft from Leg, Left Updated: 09/30/24 1349 Sonicated Tissue/Implant Culture Methicillin Resistant Staphylococcus aureus Comment: isolated from broth culture. Susceptibilities previously reported. Abscess/Wound Aspirate Culture, Aerobic Only [[id number]] (Abnormal) (Susceptibility) Collected: 09/26/24 1702 Lab Status: [...] to doxycycline. Abscess/Wound Aspirate Culture, Aerobic Only [[id number]] (Abnormal) (Susceptibility) Collected: 09/26/241649 Lab Status: Final [...] is considered susceptible to doxycycline. AFB culture [[id number]] Collected: 09/27/241653 Lab Status: Preliminary result Specimen: Tissue from Thigh, Left Updated: 09/29/24 1201 Acid Fast Bacilli Culture No acid fast bacilli isolated to date. Acid Fast Stain No acid fast bacilli seen Fungus culture [[id number]] Collected: 09/27/241653 Lab Status: Preliminary result Specimen: [...] for consulting infectious diseases. Amaya Hernandez MD, [facility] Infectious Diseases Staff Physician [...] Diet NPO Monitoring: Q4 Fawn Cunningham APRN [facility] [place]ocrinology Diabetes Management Pager [phone] Weekends please page [phone] 35 minutes were spent over the course [...] 2nd toe amputation who was transferred from [facility] given concern for infected left fem-BK popliteal [...] smoking 1 week ago. [place] [facility] [place] and went to the OR [...] Procedure Component Value - Date/Time Blood culture [[id number]] Collected: 09/29/242123 Lab Status: Preliminary result Specimen: Blood, Venous Updated: 10/03/24 230 Blood Culture No growth at 96 hours Blood culture [[id number]] Collected: 09/29/242123 Lab Status: Preliminary result Specimen: Blood, Venous Updated: 10/03/24 2301 Blood Culture No growth at 96 hours Blood culture [[id number]] Collected: 09/28/24 1749 Lab Status: Final result Specimen: Blood, Venous Updated: 10/03/24 1901 Blood Culture No growth at 120 hours Blood culture [[id number]] (Abnormal) Collected: 09/27/24 213 Lab Status: Final result Specimen: Blood, Venous Updated: 10/02/24 0804 Blood Culture Methicillin Resistant Staphylococcus aureus Comment: Susceptibilities previously reported. Gram Stain Aerobic Bottle: Gram positive cocci in clusters Tissue Culture, Aerobic & Anaerobic [[id number]] Collected: 09/27/24 1654 Lab Status: Final result Specimen: Tissue from Thigh, Left Updated: 10/01/24 1554 Narrative: The following orders were created for panel order Tissue Culture, Aerobic & Anaerobic. Procedure Abnormality Status --------- ------ Tissue Culture, Aerobic ...[[id number]] Anaerobic Culture[[id number]] Final result Please view results for these tests on the individual orders. Anaerobic Culture [[id number]] Collected: 09/27/24 165 Lab Status: Final result Specimen: Tissue from Thigh, Left Updated: 10/01/24 1554 Anaerobic Culture No anaerobic organisms isolated Tissue Culture, Aerobic Only [[id number]] (Abnormal) (Susceptibility) Collected: 09/27/24 165 Lab Status: [...] is considered susceptible to doxycycline. Blood culture [[id number]] (Abnormal) (Susceptibility) Collected: 09/26/24 1422 Lab Status: Final result Specimen: Blood, Venous Updated: 10/01/24 0658 Blood Culture Methicillin Resistant Staphylococcus aureus Comment: detected by PCR Isolate saved. If future testing is required, contact the Microbiology Evp Strategy. Gram Stain Aerobic Bottle: Gram positive cocci in clusters Susceptibility Methicillin Resistant Staphylococcus aureus VITEK 2 METHOD Clindamycin Resistant Gentamicin Susceptible [1] Linezolid Susceptible Oxacillin Resistant Trimethoprim/Sulfa Susceptible Vancomycin Susceptible [1] Gentamicin is not appropriate for monotherapy for gram-positive infections. Blood culture [[id number]] (Abnormal) Collected: 09/26/24 1845 Lab Status: Final result Specimen: Blood, Venous Updated: 10/01/24 0658 Blood Culture Methicillin Resistant Staphylococcus aureus Comment: isolated. Susceptibilities previously reported. Gram Stain Aerobic Bottle: Gram positive cocci in clusters Abscess/Wound Aspirate Culture, Aerobic & Anaerobic [[id number]] (Abnormal) Collected: 09/26/24 1650 Lab Status: Final result Specimen: Abscess from Groin, Left Updated: 09/30/24 1551 Narrative: The following orders were created for panel order Abscess/Wound Aspirate Culture, Aerobic & Anaerobic. Procedure Abnormality Status --------- ------ Abscess/Wound Aspirate C...[[id number]] Abnormal Final result Anaerobic Culture[[id number]] Final result Please view results for these tests on the individual orders. Anaerobic Culture [[id number]] Collected: 09/26/24 1650 Lab Status: Final result Specimen: Abscess from Groin, Left Updated: 09/30/24 1551 Anaerobic Culture No anaerobic organisms isolated Abscess/Wound Aspirate Culture, Aerobic & Anaerobic [[id number]] (Abnormal) Collected: 09/26/24 1702 Lab Status: Final result Specimen: Abscess from Knee, Left Updated: 09/30/24 1551 Narrative: The following orders were created for panel order Abscess/Wound Aspirate Culture, Aerobic & Anaerobic. Procedure Abnormality Status --------- ------ Abscess/Wound Aspirate C...[[id number]] Abnormal Final result Anaerobic Culture[[id number]] Final result Please view results for these tests on the individual orders. Anaerobic Culture [[id number]] Collected: 09/26/24 1702 Lab Status: Final result Specimen: Abscess from Knee, Left Updated: 09/30/24 1551 Anaerobic Culture No anaerobic organisms isolated Sonicated Tissue/Implant Culture [[id number]] (Abnormal) Collected: 09/26/24 1716 Lab Status: Final result Specimen: Vascular Graft from Leg, Left Updated: 09/30/24 1349 Sonicated Tissue/Implant Culture Methicillin Resistant Staphylococcus aureus Comment: isolated from broth culture. Susceptibilities previously reported. Abscess/Wound Aspirate Culture, Aerobic Only [[id number]] (Abnormal) (Susceptibility) Collected: 09/26/24 1702 Lab Status: [...] to doxycycline. Abscess/Wound Aspirate Culture, Aerobic Only [[id number]] (Abnormal) (Susceptibility) Collected: 09/26/24 1650 Lab Status: [...] is considered susceptible to doxycycline. AFB culture [[id number]] Collected: 09/27/24 165 Lab Status: Preliminary result Specimen: Tissue from Thigh, Left Updated: 09/29/24 1201 Acid Fast Bacilli Culture No acid fast bacilli isolated to date. Acid Fast Stain No acid fast bacilli seen AFB culture [[id number]] Collected: 09/26/24 1702 Lab Status: Preliminary result Specimen: Abscess from Knee, Left Updated: 09/29/24 1201 Acid Fast Bacilli Culture No acid fast bacilli isolated to date. Acid Fast Stain No acid fast bacilli seen Fungus culture [[id number]]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 09/26/24 170 Lab Status: Final result Specimen: Abscess from Knee, Left Updated: 09/30/24 1551 Anaerobic Culture No anaerobic organisms isolated Sonicated Tissue/Implant Culture [[id number]] (Abnormal) Collected: 09/26/24 1716 Lab Status: Final result Specimen: Vascular Graft from Leg, Left Updated: 09/30/24 1349 Sonicated Tissue/Implant Culture Methicillin Resistant Staphylococcus aureus Comment: isolated from broth culture. Susceptibilities previously reported. Abscess/Wound Aspirate Culture, Aerobic Only [[id number]] (Abnormal) (Susceptibility) Collected: 09/26/24 1702 Lab Status: [...] to doxycycline. Abscess/Wound Aspirate Culture, Aerobic Only [[id number]] (Abnormal) (Susceptibility) Collected: 09/26/24 1650 Lab Status: [...] is considered susceptible to doxycycline. Blood culture [[id number]] (Abnormal) Collected: 09/27/24 2133 Lab Status: Preliminary result Specimen: Blood, Venous Updated: 09/30/24 0718 Blood Culture Methicillin Resistant Staphylococcus aureus Comment: Susceptibilities previously reported. Gram Stain Aerobic Bottle: Gram positive cocci in clusters AFB culture [[id number]] Collected: 09/27/24 1654 Lab Status: Preliminary result Specimen: Tissue from Thigh, Left Updated: 09/29/24 1201 Acid Fast Bacilli Culture No acid fast bacilli isolated to date. Acid Fast Stain No acid fast bacilli seen AFB culture [[id number]] Collected: 09/26/24 1702 Lab Status: Preliminary result Specimen: Abscess from Knee, Left Updated: 09/29/24 1201 Acid Fast Bacilli Culture No acid fast bacilli isolated to date. Acid Fast Stain No acid fast bacilli seen Tissue Culture, Aerobic Only [[id number]] (Abnormal) (Susceptibility) Collected: 09/27/241653 Lab Status: Preliminary [...] is considered susceptible to doxycycline. Anaerobic Culture [[id number]] Collected: 09/27/241653 Lab Status: Preliminary result Specimen: Tissue from Thigh, Left Updated: 09/28/24 1355 Anaerobic Culture No anaerobic organisms isolated to date Fungus culture [[id number]] Collected: 09/27/241653 Lab Status: Preliminary result Specimen: Tissue from Thigh, Left Updated: 09/28/24 0748 Fungus Culture No fungus isolated to date MRSA PCR Screen [[id number]] (Abnormal) Collected: 09/27/24 0751 Lab Status: Final result Specimen: Swab from Nares Updated: 09/27/24 1156 MRSA PCR Detected Narrative: This test was performed using the Xpert MRSA NxG test kit and is run on the Pixability GeneThinkLink Dx System. This test is cleared by the U.S. Food and Drug Administration for clinical use and its performance characteristics have been verified by the [facility] at [facility]. Fungus culture [[id number]] Collected: 09/26/24 165 Lab Status: Preliminary result Specimen: Abscess from Groin, Left Updated: 09/27/24 0727 Fungus Culture No fungus isolated to date Fungus culture [[id number]] Collected: 09/26/24 1702 Lab Status: Preliminary result [...] previous exam on 07/17/2024. Assessment & Plan: Gevoanna Dixon Jr. is a 49 y.o. male with a history of HTN, HLD, NSTEMI, CAD s/p CABG (12/2011), DM,obesity, PAD s/p L iliofem endart and L fem-BK pop bypass and L 2nd toe amputation who was transferred from [facility] given concern for infected left fem-BK popliteal PTFE bypass. He is now s/p an explantof an infected left femoral-below knee popliteal artery bypass graft (09/26), I/D groin abscess (), L GSV harvest, vein patch angioplasty, L SOUND MIXER and BK pop w/ sartorius flap L fem, I/D, 09/29 L sartorius flap revision, vac change. 10/01/24: Tolerated gentle irrigation with saline at BSD today with clear to mildly serosang drainage - no purulence or malodor noted and patient tolerated well. Will plan for NPO at [facility] for return [place] tomorrow. Hypertensive overnight, home [...] - ISS - diet today; NPO at [facility] for OR Tuesday 10/02 Anticoagulation: SQH TID Antiplatelet: ASA 81 María Carranza, RESHMA 10/01/2024 Pager: [phone] * Karolyn Hudson MD - 09/30/2024 11:21 AM EST Images from the original note were not included. Vascular Surgery Progress Note Patient ID Geovanna Dixon Jr. is a 49 y.o. 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 [place] [facility] [place] and went to the OR [...] 3 wbc, hgb, hct plt Recent Labs 09/29/24235109/28/24235009/27/242357 WBC 9.54* 12.76* 17.15* HGB 8.7* 8.5* 10.4* HCT 25.8* 24.7* 30.5* PLATELET 411* 331 316 Microbiology Microbiology Results (last 7 days) Procedure Component Value - Date/Time Blood culture [[id number]] (Abnormal) Collected: 09/27/24 2133 Lab Status: Preliminary result Specimen: Blood, Venous Updated: 09/30/24 0718 Blood Culture Methicillin Resistant Staphylococcus aureus Comment: Susceptibilities previously reported. Gram Stain Aerobic Bottle: Gram positive cocci in clusters Blood culture [[id number]] Collected: 09/28/24 1749 Lab Status: Preliminary result Specimen: Blood, Venous Updated: 09/29/24 1901 Blood Culture No Growth at 18-24 hrs. AFB culture [[id number]] Collected: 09/27/24 1654 Lab Status: Preliminary result Specimen: Tissue from Thigh, Left Updated: 09/29/24 1201 Acid Fast Bacilli Culture No acid fast bacilli isolated to date. Acid Fast Stain No acid fast bacilli seen AFB culture [[id number]] Collected: 09/26/24 1702 Lab Status: Preliminary result Specimen: Abscess from Knee, Left Updated: 09/29/24 1201 Acid Fast Bacilli Culture No acid fast bacilli isolated to date. Acid Fast Stain No acid fast bacilli seen Sonicated Tissue/Implant Culture [[id number]] (Abnormal) Collected: 09/26/24 1716 Lab Status: Preliminary result Specimen: Vascular Graft from Leg, Left Updated: 09/29/24 1132 Sonicated Tissue/Implant Culture Methicillin Resistant Staphylococcus aureus Comment: isolated from broth culture. Susceptibilities previously reported. Tissue Culture, Aerobic Only [[id number]] (Abnormal) (Susceptibility) Collected: 09/27/24 1654 Lab Status: [...] is considered susceptible to doxycycline. Blood culture [[id number]] (Abnormal) Collected: 09/26/24 1845 Lab Status: Preliminary result Specimen: Blood, Venous Updated: 09/29/24 0719 Blood Culture Methicillin Resistant Staphylococcus aureus Comment: isolated. Susceptibilities previously reported. Gram Stain Aerobic Bottle: Gram positive cocci in clusters Blood culture [[id number]] (Abnormal) (Susceptibility) Collected: 09/26/24 1422 Lab Status: Preliminary result Specimen: Blood, Venous Updated: 09/29/24 0717 Blood Culture Methicillin Resistant Staphylococcus aureus Comment: detected by PCR Isolate saved. If future testing is required, contact the Microbiology Evp Strategy. Gram Stain Aerobic Bottle: Gram positive cocci in clusters Susceptibility Methicillin Resistant Staphylococcus aureus VITEK 2 METHOD Clindamycin Resistant Gentamicin Susceptible [1] Linezolid Susceptible Oxacillin Resistant Trimethoprim/Sulfa Susceptible Vancomycin Susceptible [1] Gentamicin is not appropriate for monotherapy for gram-positive infections. Anaerobic Culture [[id number]] Collected: 09/27/24 1654 Lab Status: Preliminary result Specimen: Tissue from Thigh, Left Updated: 09/28/24 1355 Anaerobic Culture No anaerobic organisms isolated to date Abscess/Wound Aspirate Culture, Aerobic Only [[id number]] (Abnormal) (Susceptibility) Collected: 09/26/24 1702 Lab Status: [...] to doxycycline. Abscess/Wound Aspirate Culture, Aerobic Only [[id number]] (Abnormal) (Susceptibility) Collected: 09/26/241649 Lab Status: Preliminary [...] is considered susceptible to doxycycline. Fungus culture [[id number]] Collected: 09/27/241653 Lab Status: Preliminary result Specimen: Tissue from Thigh, Left Updated: 09/28/24 0748 Fungus Culture No fungus isolated to date MRSA PCR Screen [[id number]] (Abnormal) Collected: 09/27/24 0751 Lab Status: Final result Specimen: Swab from Nares Updated: 09/27/24 1156 MRSA PCR Detected Narrative: This test was performed using the Xpert MRSA NxG test kit and is run on the Pixability GeneXpert Dx System. This test is cleared by the U.S. Food and Drug Administration for clinical use and its performance characteristics have been verified by the [facility] at [facility]. Anaerobic Culture [[id number]] Collected: 09/26/241649 Lab Status: Preliminary result Specimen: Abscess from Groin, Left Updated: 09/27/24 1142 Anaerobic Culture No anaerobic organisms isolated to date Anaerobic Culture [[id number]] Collected: 09/26/24 1702 Lab Status: Preliminary result Specimen: Abscess from Knee, Left Updated: 09/27/24 1142 Anaerobic Culture No anaerobic organisms isolated to date Fungus culture [[id number]] Collected: 09/26/241649 Lab Status: Preliminary result Specimen: Abscess from Groin, Left Updated: 09/27/24 0727 Fungus Culture No fungus isolated to date Fungus culture [[id number]] Collected: 09/26/24 1702 Lab Status: Preliminary result Specimen: Abscess from Knee, Left Updated: 09/27/24726 Fungus Culture No fungus isolated to date New Studies Results for orders placed or performed during the hospital encounter of 09/26/24 Request For 2nd Read CT Lower Extremity (Exam End: 09/26/2024 1:50 PM) Result Value WORKSTATION ID [id number] Impression 1. There is a left femoral [...] have questions please contact the health healthcare technician that requested your imaging first. Lower Extremity w Contrast Left (Exam End: 09/27/2024 9:16 AM) Result Value WORKSTATION ID [id number] Impression IMPRESSION: 1. Interval explant of LEFT [...] have questions please contact the health healthcare technician that requested your imaging first. 09/28 ABIs [...] 2nd toe amputation who was transferred from [facility] given concern for infected left fem-BK popliteal [...] at proximal and distal anastomoses and a [place] drain placed from left groin to left [...] 0700 In: 2312 [P.O.:400; I.V.:1004] Out: 2166 [Urine:5; Drains:80] General: awake and alert Lungs: clear Heart: reg Abdomen: soft Extremities: LLE with VAC Neuro: no deficits Recent Labs 09/29/24 23509/28/24 23509/27/24235709/27/24 1755 WBC 9.54* 12.76* 17.15* 19.38* HGB 8.7* 8.5* 10.4* 11.0* HCT 25.8* 24.7* 30.5* 31.6* PLATELET 411* 331 316 322 Recent Labs 09/30/24 0627 09/29/24 23509/28/24 23509/28/24 1045 09/28/24 0455 09/27/242357 NA -- 138 137 -- -- 131* K 3.9 3.4* 3.2* 4.6 2.9* 3.2* CL -- 103 105 -- -- 95* CO2 -- * -- -- BUN -- 9* 6* -- -- 5* CREATININE -- 0.48* 0.52* -- -- 0.48* GLUCOSE -- 133 204* -- -- 246* CALCIUM -- 8.1* 6.7* -- -- 8.1* MAGNESIUM -- 0.85 0.72 -- -- 0.77 Recent Labs 09/28/24 1516 PHART 7.42 PO2ART 103 [id number] 39 LACTATEART 1.1 BEART 0.2 Is this [...] is 32.45 kg/m??. 09/28 701 - 09/29 700 In: 2676 [P.O.:350; I.V.:2090] Out: 3410 [Urine:3125; [...] Recent Labs 09/28/24 23509/28/24 1045 09/28/24 0455 09/27/24235709/27/24 0751 09/27/24 0505 09/27/24 0001 09/26/24 1439 [...] 1643 PHART 7.42 7.38 PO2ART 103 96 [id number] 39 41 LACTATEART 1.1 1.7 BEART 0.2 -1.4 Is this patient critically ill? Is there a high potential of sudden, clinically significant, or life threatening deterioration? No Is there a need for direct personal assessment and management to treat/prevent multiple vital organfailure/deterioration? No Jena Marie. Alex Gonsalez MD * Stacey Thomas MD [...] segmental wall motion abnormalities Impression: Geovanna Dixon is a 49 y.o.male history of coronary [...] Thank you, Renea Nunez, MS, RD, LD, [facility] Clinical Nutrition * Mariya Shi RN - [...] Diet CC Monitoring: Q4 Fawn Cunningham APRN [facility] Endocrinology Diabetes Management Pager [phone] Weekends please page [phone] 35 minutes were spent over the course [...] Labs 09/26/24 1643 PHART 7.38 PO2ART 96 [id number] 41 LACTATEART 1.7 BEART -1.4 Is this [...] 2nd toe amputation who was transferred from [facility] given concern for infected left fem-BK popliteal [...] smoking 1 week ago. He [place] [facility] [place] and went to the OR [...] Procedure Component Value - Date/Time Fungus culture [[id number]] Collected: 09/27/24 1654 Lab Status: Preliminary result Specimen: Tissue from Thigh, Left Updated: 09/28/24 0748 Fungus Culture No fungus isolated to date Blood culture [[id number]] (Abnormal) Collected: 09/26/24 1845 Lab Status: Preliminary result Specimen: Blood, Venous Updated: 09/28/24 0711 Blood Culture Methicillin Resistant Staphylococcus aureus Comment: isolated. Susceptibility testing in progress. Gram Stain Aerobic Bottle: Gram positive cocci in clusters AFB culture [[id number]] Collected: 09/26/24 170 Lab Status: Preliminary result Specimen: Abscess from Knee, Left Updated: 09/27/24 2335 Acid Fast Stain No acid fast bacilli seen Tissue Culture, Aerobic Only [[id number]] Collected: 09/27/24 165 Lab Status: Preliminary result Specimen: Tissue from Thigh, Left Updated: 09/27/24 1810 Gram Stain Few Neutrophils seen No microorganisms seen Abscess/Wound Aspirate Culture, Aerobic Only [[id number]] (Abnormal) Collected: 09/26/24 170 Lab Status: Preliminary result Specimen: Abscess from Knee, Left Updated: 09/27/24 1520 Abscess/Wound Aspirate Culture Many Staphylococcus aureus Gram Stain Many neutrophils Many Gram positive cocci Abscess/Wound Aspirate Culture, Aerobic Only [[id number]] (Abnormal) Collected: 09/26/241649 Lab Status: Preliminary result Specimen: Abscess from Groin, Left Updated: 09/27/24 1519 Abscess/Wound Aspirate Culture Many Staphylococcus aureus Gram Stain Many neutrophils Many Gram positive cocci Blood culture [[id number]] (Abnormal) Collected: 09/26/24 1422 Lab Status: Preliminary result Specimen: Blood, Venous Updated: 09/27/24 1320 Blood Culture Methicillin Resistant Staphylococcus aureus Comment: detected by PCR Gram Stain Aerobic Bottle: Gram positive cocci in clusters MRSA PCR Screen [[id number]] (Abnormal) Collected: 09/27/24 0751 Lab Status: Final result Specimen: Swab from Nares Updated: 09/27/24 1156 MRSA PCR Detected Narrative: This test was performed using the Xpert MRSA NxG test kit and is run on the Pixability GeneXPDV Dx System. This test is cleared by the U.S. Food and Drug Administration for clinical use and its performance characteristics have been verified by the [facility] at [facility]. Anaerobic Culture [[id number]] Collected: 09/26/24 165 Lab Status: Preliminary result Specimen: Abscess from Groin, Left Updated: 09/27/24 1142 Anaerobic Culture No anaerobic organisms isolated to date Anaerobic Culture [[id number]] Collected: 09/26/24 170 Lab Status: Preliminary result Specimen: Abscess from Knee, Left Updated: 09/27/24 1142 Anaerobic Culture No anaerobic organisms isolated to date Fungus culture [[id number]] Collected: 09/26/24 1650 Lab Status: Preliminary result Specimen: Abscess from Groin, Left Updated: 09/27/24726 Fungus Culture No fungus isolated to date Fungus culture [[id number]] Collected: 09/26/24 1702 Lab Status: Preliminary result Specimen: Abscess from Knee, Left Updated: 09/27/24726 Fungus Culture No fungus isolated to date New Studies Results for orders placed or performed during the hospital encounter of 09/26/24 Request For 2nd Read CT Lower Extremity (Exam End: 09/26/2024 1:50 PM) Result Value WORKSTATION ID [id number] Impression 1. There is a left femoral [...] have questions please contact the health healthcare technician that requested your imaging first. Lower Extremity w Contrast Left (Exam End: 09/27/2024 9:16 AM) Result Value WORKSTATION ID [id number] Impression IMPRESSION: 1. Interval explant of LEFT [...] have questions please contact the health healthcare technician that requested your imaging first. Assessment & Plan Gevoanna Dixon Jr. is a 49 y.o. male with a history of HTN, HLD, NSTEMI, CAD s/p CABG (12/2011), DM,obesity, PAD s/p L iliofem endart and L fem-BK pop bypass and L 2nd toe amputation who was transferred from [facility] given concern for infected left fem-BK popliteal [...] at proximal and distal anastomoses and a [place] drain placed from left groin to left [...] Karolyn Hudson MD Vascular Surgery 09/28/24 [id number] IR * Padma Ramirez MD - 09/27/2024 9:47 [...] Superior part of dressing taken down. [address] Abd pads with serosanguinous [...] Ramirez MD Vascular Surgery 09/27/24 * Kita Hogde - 09/27/2024 3:58 PM EST Awning Maker Encounter Note Patient Name: Geovanna Dixon Jr. : [id number] MR#: [id number] Admit Date: 09/26/2024 2:08 PM Hospital Day 1 day Narrative: Pump Erector initiated visit with patient during rounds on the unit. Patient indicated that he was not oriental orthodox. He reported that he was in less [...] Labs 09/26/24 1643 PHART 7.38 PO2ART 96 [id number] 41 LACTATEART 1.7 BEART -1.4 Is this [...] 2nd toe amputation who was transferred from [facility] given concern for infected left fem-BK popliteal [...] smoking 1 week ago. He presented [place] [facility] [place] and went to the OR [...] 2nd toe amputation who was transferred from [facility] given concern for infected left fem-BK popliteal PTFE bypass. He is now s/p an explantof an infected left femoral-below knee popliteal artery bypass graft. Significant purulence under pr essure was seen intraoperatively, surrounding the entire bypass at proximal and distal anastomoses as well as the tunnel. There are retained grafts left at proximal and distal anastomoses, and a Yung drain placed from left [...] graft associated infection. The patient presented to [facility] ED on 09/26 for evaluation of increasing [...] remained hemodynamically stable during his time at [facility] and was transported by ground [place] [facility] [place] surgery consultation. Patient was admitted [...] 22.8, Na 127, K 3.3, glucose 268, VB.43/41/v/ Patient was subsequently taken to the operative [...] 3.51) performed by Thony Garcia MD at [facility] MAIN OR PRO BYPASS GRAFT OTHR, FEM-TIBIAL Left 08/01/2024 @BYPASS GRAFT, FEM-ANT TIBIAL, -POST TIBIAL, -PERONEAL, -DP W\ SYNTHETIC CONDUIT (WRVU 23.66) performed by Lisette Maldonado MD at [facility] MAIN OR PRO CABG, ARTERY-VEIN, SINGLE 01/04/2012 @CABG, VENOUS & ARTERIAL GRAFT;SINGLE VEIN GRAFT performed by INNA TOVAR at [facility] MAIN OR PRO ENDOSCOPY W/VIDEO-ASST VEIN HARVEST, CABG 01/04/2012 ENDOSCOPIC HARVEST VEIN(S) FOR CABG performed by INNA TOVAR at [facility] MAIN OR VS ARTERIOGRAM LOWER EXTREMITY VASCULAR SURGERY 07/20/2024 VS Arteriogram Lower Extremity Vascular Surgery 07/20/2024 Anabel Finney MD [facility] INTERVENTIONL RAD Prior To Admission Medications: Medications [...] 3 times daily. Use as instructed Indications: [id number] each 1 Past Week FreeStyle Lancets 28 [...] 200 - 393 mg/dL Type and screen ([facility]) Result Value Ref Range ABORH Type A POSITIVE PATIENT HISTORY Found Expires at 2359 on: 09/29/2024 ANTIBODY SCREEN AUTOMATED Negative T&S only valid at [facility] CBC (with Diff) Result Value Ref [...] 09/26/2024 1:50 PM) Result Value WORKSTATION ID [id number] Impression 1. There is a left femoral [...] have questions please contact the health healthcare technician that requested your imaging first. Assessment/Plan: Geovanna [...] to the planned procedure. Hand Hygiene: The inspector precision did perform hand hygiene prior to line insertion. Catheter type: PICC Lot number: [id number] Procedure Technique: Skin was prepped with chlorhexidine. [...] to the planned procedure. Hand Hygiene: The inspector precision did perform hand hygiene prior to line insertion. Catheter type: PICC Lot number: [id number] Procedure Technique: Skin was prepped with chlorhexidine. [...] tomorrow afternoon. Home Vac: I have called [facility] and they they have now delivered the home ActiVac serial # [id number]. Pt reviewed the [facility] ActiVac Proof of Delivery/Assignment of Benefits (POD/AOB)form and signed it; she has copy of this and the [facility] Patient Copy letter along with the supplies, I will fax copy of the POD/AOB to [facility]. Needs for Transition of Care: Plan for discharge is: Home w/ Services Outpatient Agency/Support Group Needs: Homecare agency Outpatient IV Medications - IV Access: Access Ordered Location: Home, Referred to [facility] Coordination, Referred to [facility] Services: Occupational Therapy, Physical Therapy, Registered Nurse Agency Referrals & Follow-up Care: Contact information [place] [facility] [place] [id number] [facility] [id number] Transportation: family or friend will provide Functional status prior to admission: Independent Home Environment: Others in the home: sibling(s), other (see comments) (lives with his sister delmy and brother in law). Current Living Arrangements: home/apartment/condo. Accessibility Concerns: . Current Functional Ability: Assistive Person and Equipment DME used at home: none Other DME Needs: Wound Vac Provider: [facility] Patient is insured through: Primary Insurance: [employer] MANAGED MEDICARE Payor: [employer] MANAGED MEDICARE / Plan: [employer] MANAGED MEDICARE [...] Pain Flowsheets Taken 10/09/20242022 Pain Management Interventions: [id number] dosing utilized care clustered diversional activity provided [...] from the [place] [address] [facility] Vascular Access Service Peripherally Inserted Central Catheter (PICC) Teaching Sheet Peripherally inserted central catheters (mpjx-xy-ndyf) (PICC) are used when you need IV [...] midline catheter? PICC lines are used for local intermodal truck driver treatments. PICC lines may be used for [...] can be set up via the nurse Field Director to help you. What are possible complications [...] Efficacy, Safety, Use, and Administration of Cathflo, [employer] 2005 * Care Management - Cristina [...] MEDICARE Payor: [employer] MANAGED MEDICARE / Plan: [employer] MANAGED MEDICARE PPO / Product Type: *No [...] Access: Access Ordered Location: Home, Referred to [facility] Coordination Home Health Services: Occupational Therapy, Physical Therapy, Registered Nurse- will remove PT, OT Agency Referrals: [facility] and [facility] for IV abx. [facility] can come tomorrow [...] 9:00 AM EST OFFICE OF CARE MANAGEMENT Field Director Follow-up Note Cristina Turner RN reviewed record [...] medically ready. Current Referral in place: VNA: [facility] Wound vac ordered in [employer] System for home wound vac and order emailed to: María for signature. Field Director to follow with team and family to [...] where referrals are placed. Request referral to [place], [place] for IV abx or . Expected date of discharge: 10/11. Patient will require teaching. Referral routed to the Interactive Multimedia Designer for matching with agency/vendor and to provide [...] Prevent or Manage Infection Flowsheets (Taken 10/08/2024 0832) Fever Reduction/Comfort Measures: lightweight bedding lightweight clothing [...] care clustered diversional activity provided position adjusted [id number] dosing utilized pain management plan reviewed with [...] have. Alternately, during off-hours you may call [phone] to contact a pharmacist. * Plan of Care - Jordyn Navas RN - 10/07/2024 7:21 PM EST OUTCOME EVALUATION NOTE: OUTCOME SUMMARY: Transferred to unit at 1730 from [facility], Meds/Assessments as charted, Frequent safety [...] PM EST PICC line placed today for local intermodal truck driver ABX. Neurovascular checks unchanged. Good oral intake [...] from the [place] [address] [facility] Vascular Access Service Peripherally Inserted Central Catheter (PICC) Teaching Sheet Peripherally inserted central catheters (mbyq-sb-zlmg) (PICC) are used when you need IV [...] midline catheter? PICC lines are used for local intermodal truck driver treatments. PICC lines may be used for [...] can be set up via the nurse Field Director to help you. What are possible complications [...] Vascular Access Device Selection, Insertion, and Management, [employer] 08/12. A Review of the Efficacy, Safety, Use, and Administration of Cathflo, [employer] 2005 * Care Management - Vibha [...] No Patient is insured through: Primary Insurance: L[employer] MANAGED MEDICARE Payor: LAFASO MANAGED MEDICARE / Plan: [employer] MANAGED MEDICARE PPO / Product Type: *No [...] of Discharge: 10/10/2024 Vibha Wahl RN-BSN-CM Pager: [phone] * Consult Note - Stormy Muller [facility] - 10/06/2024 9:19 AM EST [facility] Pharmacokinetics Note Drug: Vancomycin Pharmacokinetic target: AUC24 (range) 400-600 mg/L.hr Current regimen: 1250 mg IV every 8 hours Geovanna Dixon is a(n) 49 years old male receiving Vancomycin 1250 mg IV every 8 hours for MRSA bacteremia/graft infection Recent measured serum creatinine values: 10/06/2024 00:03 0.85 mg/dL 10/04/2024 23:50 0.55 mg/dL 10/04/2024 00:08 0.56 mg/dL Assessment: Analysis of the most recent level(s) using [employer] gives the following patient-specific pharmacokinetic parameters: CL: [...] in a steady-state trough of 14.6 mg/L [id number] of 508 mg/L.hr. Recommendations: - SCr has [...] Meeks MD - 10/04/2024 5:01 PM EST [facility] [place] Patient Name: Geovanna Dixon Jr. : [id number] MR#: [id number] Case Date: 10/04/2024 Surgeon: Surgeons and Role: * Marko Dickson MD - Primary * Cristino Meeks MD - Resident - Assisting Preoperative diagnosis: Status post explant of infected left SOUND MIXER-BK pop bypass graft Postoperative diagnosis: Status post explant of infected left SOUND MIXER-BK pop bypass graft Procedure(s) (LRB): DEBRIDEMENT SKIN [...] 2nd toe amputation who was transferred from [facility] given concern for infected left fem-BK popliteal PTFE bypass. He is now s/p an explant of an infected left femoral-below knee popliteal artery bypass graft on 09/26 followed by I/D posterior thigh abscess on 09/27 then left GSV harvest, total explant of remaining PTFE then vein patch angioplasty of the left SOUND MIXER and BK popliteal artery on 09/28 then [...] Note Patient Name: Geovanna Dixon Jr. : [id number] MR#: [id number] Case Date: 10/04/2024 Surgeon: Surgeons and Role: * Marko Dickson MD - Primary * Cristino Meeks MD - Resident - Assisting Preoperative diagnosis: Status post explant of infected left SOUND MIXER-BK pop bypass graft Postoperative diagnosis: Status post explant of infected left SOUND MIXER-BK pop bypass graft Procedure(s) (LRB): DEBRIDEMENT SKIN [...] No Patient is insured through: Primary Insurance: [employer] MANAGED MEDICARE Payor: LAFASO MANAGED MEDICARE / Plan: L[employer] MANAGED MEDICARE PPO / Product Type: *No Product type* / Secondary Insurance: N/A Last Physical Therapy Recommendation: home with supervision (and support from family, prn) with None (10/03/24 1101) Last Occupational Therapy Recommendation: home (w/ family) with None (10/03/24 6374) Plan for discharge is: Pending Hospital Course [...] time. Anticipated Date of Discharge: 10/10/2024 Cristina Turner RN, BSN * Consult Note - Yolande Estrada - 10/04/2024 10:45 AM EST BIT Evaluation Referral source: Admission screening Reason for referral: Other: Follow up of DAST/AUDIT score Interventions delivered: Patient declined Plan: BIT will sign off. If patient would like BIT to reengage please page BIT @ [phone] * Consult Note - Vangie Chandra [facility] - 10/04/2024 10:42 AM EST [facility] Pharmacokinetics Note Drug: Vancomycin Pharmacokinetic target: AUC24 (range) 400-600 mg/L.hr Current regimen: 1500 mg IV every 8 hours Geovanna Dixon is a(n) 49 years old male receiving Vancomycin 1500 mg IV every 8 hours for graft infection Recent measured serum creatinine values: 10/04/2024 00:08 0.56 mg/dL 10/03/2024 00:27 0.51 mg/dL 10/02/2024 00:41 0.49 mg/dL Assessment: Analysis of the most recent level(s) using [employer] gives the following patient-specific pharmacokinetic parameters: CL: [...] his care. * Initial Assessments - Jorge Goetz, OT - 10/03/2024 10:55 AM EST Occupational Therapy Evaluation Patient profile: Geovanna Dixon Jr. is a 49 y.o. male with a history of HTN, HLD, NSTEMI, CAD s/p CABG (12/2011), DM, obesity, PAD s/p L iliofem endart and L fem-BK pop bypass and L 2nd toe amputationwho was transferred from [facility] given concern for infected left fem-BK popliteal PTFE bypass. He is now s/p an explant of an infected left femoral-below knee popliteal artery bypass graft (09/26), I/D groin abscess (09/27), L GSV harvest, vein patch angioplasty, L SOUND MIXER and BK pop w/ sartorius flap L fem, I/D, 09/29 L sartorius flap revision, vac change. 10/03/24 NPO at [facility] for OR wound exploration. Wound vac off [...] 3.51) performed by Thony Garcia MD at [facility] MAIN OR PRO BYPASS GRAFT OTHR, FEM-TIBIAL Left 08/01/2024 @BYPASS GRAFT, FEM-ANT TIBIAL, -POST TIBIAL, -PERONEAL, -DP W\ SYNTHETIC CONDUIT (WRVU 23.66) performed by Lisette Maldonado MD at [facility] MAIN OR PRO CABG, ARTERY-VEIN, SINGLE 01/04/2012 @CABG, VENOUS & ARTERIAL GRAFT;SINGLE VEIN GRAFT performed by INNA TOVAR at [facility] MAIN OR PRO DEBRIDEMENT MUSCLE AND FASCIA 20 SQ CM/< Left 09/29/2024 DEBRIDEMENT SKIN, SUBCU, MUSCLE, LOWER EXTREMITY (WRVU 2.7) performed by Anabel Finney MD at [facility] MAIN OR PRO DEBRIDEMENT MUSCLE AND FASCIA 20 SQ CM/< Left 10/02/2024 DEBRIDEMENT SKIN, SUBCU, MUSCLE, LOWER EXTREMITY (WRVU 2.7) performed by Hermila Mccormick MDat [facility] MAIN OR PRO DEBRIDEMENT SUBCUTANEOUS TISSUE 20 SQCM/< Left 09/27/2024 DEBRIDEMENT SKIN AND SUBCU, LOWER EXTREMITY (WRVU 1.01) performed by Hayley Torres MD at [facility] MAIN OR PRO DRAIN LOWER LEG DEEP ABSC/HEMATOMA Left 09/26/2024 INCISION & DRAINAGE, LEG OR ANKLE, DEEP ABSCESS OR HEMATOMA (WRVU 5.23) performed by Hayley Torres MD at [facility] MAIN OR PRO ENDOSCOPY W/VIDEO-ASST VEIN HARVEST, CABG 01/04/2012 ENDOSCOPIC HARVEST VEIN(S) FOR CABG performed by INNA TOVAR at [facility] MAIN OR PRO EXCISION, INFEC GRAFT, EXTREMITY Left 09/26/2024 EXCISION OF INFECTED GRAFT FROM LOWER EXTREMITY (WRVU 9.53) performed by Hayley Torres MD at [facility] OR PRO EXCISION, INFEC GRAFT, EXTREMITY Left 09/28/2024 EXCISION OF INFECTED GRAFT FROM LOWER EXTREMITY (WRVU 9.53) performed by Hayley Torres MD at [facility] MAIN OR PRO EXPLORATION NOT FOLLOWED BY SURG LOWER EXTREMITY ARTERY Left 09/29/2024 @EXPLORATION W\O SURGICAL REPAIR, FEMORAL ARTERY - JENNIFER (WRVU 7.5) performed by Anabel Finney MD at [facility] MAIN OR PRO FORM SKIN PEDICLE FLAP SCALP, ARM, LEG 09/28/2024 FLAP, PEDICLE,W OR W/O TRANSFER, LEGS (WRVU 10.12) performed by Hayley Torres MD at [facility] MAIN OR PRO I&D DEEP ABSCESS BURSA/HEMATOMA THIGH/KNEE REGION Left 09/26/2024 INCISION & DRAINAGE ABSCESS OR HEMATOMA, THIGH, KNEE SUPERFICIAL (WRVU 6.78) performed by Hayley Torres MD at [facility] MAIN OR PRO REVISION FEMORAL ANAST BPG GROIN OPEN W/NONAUTOG PATCH GRAFT Left 09/28/2024 REV. FEM. ANASTOMOSIS OF SYN. BYPASS GRAFT USING NONAUTOGENOUS PATCH ANGIOPLASTY-JENNIFER (WRVU 23.15) performed by Hayley Torres MD at [facility] MAIN OR PRO UNLISTED PROCEDURE VASCULAR SURGERY Left 09/28/2024 HARVEST SAPHENOUS VEIN (WRVU 13.24) performed by Hayley Torres MD at [facility] MAIN OR VS ARTERIOGRAM LOWER EXTREMITY VASCULAR SURGERY 07/20/2024 VS Arteriogram Lower Extremity Vascular Surgery 07/20/2024 Anabel Finney MD [facility] INTERVENTIONL RAD Social History: Patient lives w/ [...] Pt issued and educated on use of sports physician for sports physician lower items. Self-feeding: Independent Grooming: Set up [...] Discharge planning Total Minutes, Occupational Therapy: 35 ([id number]) OT Evaluation Code Rationale: Diagnosis & Pertinent Co-Morbidities affecting Plan of Care: see PMHx Occupational Profile & Client History: Brief Expanded Extensive x Assessment of Occupational Performance: 1-3 performance deficits 3-5 performance deficits x 5 + performance deficits Clinical Decision Making: Low Moderate High x Clinical decision making of low complexity using standardized patient assessment instrument and measurable assessment of functional outcome. Pager: [phone] Jorge Goetz OT 10/03/2024 Occupational Therapy Rehabilitation [...] Mccormick MD - 10/02/2024 2:06 PM EST [facility] [place] Patient Name: Geovanna Dixon Jr. : [id number] MR#: [id number] Case Date: 10/02/2024 Surgeon: Surgeons and Role: [...] 2nd toe amputation who was transferred from [facility] given concern for infected left fem-BK popliteal [...] the groin, we then attached a 15 [place] Jose drain to the Yung drain, and remove the Yung drain, replacing it with the 15 [place] Jose drain. In a similar way we [...] Therapy, Physical Therapy, Registered Nurse Agency Referrals: [facility]. [address] [place] [address] Transportation: family or friend will provide Barriers to discharge: Global: Denies needs/concerns at this time Plan: Patient is not medically ready related to: patient is going to the OR today for a washout andremains on blowout precautions. Plan going forward is: when able patient will need to work with PT/OT Anticipated Date of Discharge: 10/10/2024 Penny ROSAS RN CM Phone: [phone] Pager: [phone] * Plan of Care - Heidi Mobley [...] output. * Consult Note - Katelyn Oconnor [facility] - 09/30/2024 7:43 AM EST [facility] Pharmacokinetics Note Drug: Vancomycin Pharmacokinetic target: AUC24 (range) 400-600 mg/L.hr Current regimen: 1500 mg IV every 8 hours Geovanna Dixon is a(n) 49 years old male receiving Vancomycin 1500 mg IV every 8 hours for bacteremia Recent measured serum creatinine values: 09/29/2024 23:52 0.48 mg/dL 09/28/2024 23:51 0.52 mg/dL 09/27/2024 23:58 0.48 mg/dL Assessment: Analysis of the most recent level(s) using [employer] gives the following patient-specific pharmacokinetic parameters: CL: [...] Finney MD - 09/29/2024 2:41 PM EST [facility] [place] Patient Name: Geovanna Dixon Jr. : [id number] MR#: [id number] Case Date: 09/29/2024 Surgeon: Surgeons and Role: [...] 2nd toe amputation who was transferred from [facility] given concern for infected left fem-BK popliteal [...] mobilized and explored. The area around the SOUND MIXER was irrigated copiously. The flap was then [...] Therapy, Physical Therapy, Registered Nurse Agency Referrals: [facility] [address] [place] [address] Transportation: family or friend will provide Barriers [...] Discharge: 10/04/2024 Penny ROSAS RN CM Phone: [phone] Pager: [phone] * Consult Note - Rose Wright APRN [...] 2nd toe amputation who was transferred from [facility] given concern for infected left fem-BK popliteal [...] smoking 1 week ago. He presented [place] [facility] [place] and went to the OR [...] Intake/Output Summary (Last 24 hours) at 09/29/2024 07 Last data filed at 09/29/2024 0600 Gross [...] Procedure Component Value - Date/Time Blood culture [[id number]] (Abnormal) Collected: 09/27/242132 Lab Status: Preliminary result Specimen: Blood, Venous Updated: 09/29/24 0721 Blood Culture Methicillin Resistant Staphylococcus aureus Gram Stain Aerobic Bottle: Gram positive cocci in clusters Blood culture [[id number]] (Abnormal) Collected: 09/26/24 1845 Lab Status: Preliminary result Specimen: Blood, Venous Updated: 09/29/24 0719 Blood Culture Methicillin Resistant Staphylococcus aureus Comment: isolated. Susceptibilities previously reported. Gram Stain Aerobic Bottle: Gram positive cocci in clusters Blood culture [[id number]] (Abnormal) (Susceptibility) Collected: 09/26/24 1422 Lab Status: Preliminary result Specimen: Blood, Venous Updated: 09/29/24 0717 Blood Culture Methicillin Resistant Staphylococcus aureus Comment: detected by PCR Isolate saved. If future testing is required, contact the Microbiology [employer]. Gram Stain Aerobic Bottle: Gram positive cocci in clusters Susceptibility Methicillin Resistant Staphylococcus aureus VITEK 2 METHOD Clindamycin Resistant Gentamicin Susceptible [1] Linezolid Susceptible Oxacillin Resistant Trimethoprim/Sulfa Susceptible Vancomycin Susceptible [1] Gentamicin is not appropriate for monotherapy for gram-positive infections. AFB culture [[id number]] Collected: 09/27/24 165 Lab Status: Preliminary result Specimen: Tissue from Thigh, Left Updated: 09/28/24 2226 Acid Fast Stain No acid fast bacilli seen Anaerobic Culture [[id number]] Collected: 09/27/24 165 Lab Status: Preliminary result Specimen: Tissue from Thigh, Left Updated: 09/28/24 1355 Anaerobic Culture No anaerobic organisms isolated to date Sonicated Tissue/Implant Culture [[id number]] Collected: 09/26/24 1716 Lab Status: Preliminary result Specimen: Vascular Graft from Leg, Left Updated: 09/28/24 1323 Sonicated Tissue/Implant Culture Culture in progress Tissue Culture, Aerobic Only [[id number]] (Abnormal) Collected: 09/27/24 1654 Lab Status: Preliminary result Specimen: Tissue from Thigh, Left Updated: 09/28/24 1049 Tissue Culture Rare Staphylococcus aureus Gram Stain Few Neutrophils seen No microorganisms seen Abscess/Wound Aspirate Culture, Aerobic Only [[id number]] (Abnormal) (Susceptibility) Collected: 09/26/24 1702 Lab Status: [...] to doxycycline. Abscess/Wound Aspirate Culture, Aerobic Only [[id number]] (Abnormal) (Susceptibility) Collected: 09/26/241649 Lab Status: Preliminary [...] is considered susceptible to doxycycline. Fungus culture [[id number]] Collected: 09/27/241653 Lab Status: Preliminary result Specimen: Tissue from Thigh, Left Updated: 09/28/24 0748 Fungus Culture No fungus isolated to date AFB culture [[id number]] Collected: 09/26/241701 Lab Status: Preliminary result Specimen: Abscess from Knee, Left Updated: 09/27/24 2335 Acid Fast Stain No acid fast bacilli seen MRSA PCR Screen [[id number]] (Abnormal) Collected: 09/27/24 0751 Lab Status: Final result Specimen: Swab from Nares Updated: 09/27/24 1156 MRSA PCR Detected Narrative: This test was performed using the Xpert MRSA NxG test kit and is run on the [employer] GeneXpert Dx System. This test is cleared by the U.S. Food and Drug Administration for clinical use and its performance characteristics have been verified by the [facility] at [facility]. Anaerobic Culture [[id number]] Collected: 09/26/241649 Lab Status: Preliminary result Specimen: Abscess from Groin, Left Updated: 09/27/24 1142 Anaerobic Culture No anaerobic organisms isolated to date Anaerobic Culture [[id number]] Collected: 09/26/24 170 Lab Status: Preliminary result Specimen: Abscess from Knee, Left Updated: 09/27/24 1142 Anaerobic Culture No anaerobic organisms isolated to date Fungus culture [[id number]] Collected: 09/26/24 1650 Lab Status: Preliminary result Specimen: Abscess from Groin, Left Updated: 09/27/24726 Fungus Culture No fungus isolated to date Fungus culture [[id number]] Collected: 09/26/24 1702 Lab Status: Preliminary result Specimen: Abscess from Knee, Left Updated: 09/27/24726 Fungus Culture No fungus isolated to date New Studies Results for orders placed or performed during the hospital encounter of 09/26/[address] Request For 2nd Read CT Lower Extremity (Exam End: 09/26/2024 1:50 PM) Result Value WORKSTATION ID [id number] Impression 1. There is a left femoral [...] have questions please contact the health healthcare technician that requested your imaging first. Lower Extremity w Contrast Left (Exam End: 09/27/2024 9:16 AM) Result Value WORKSTATION ID [id number] Impression IMPRESSION: 1. Interval explant of LEFT [...] have questions please contact the health healthcare technician that requested your imaging first. 09/28 ABIs [...] 2nd toe amputation who was transferred from [facility] given concern for infected left fem-BK popliteal [...] Torres MD - 09/28/2024 12:23 PM EST [facility] [place] Note Patient Name: Geovanna Dixon Jr. : [id number] MR#: [id number] Case Date: 09/28/2024 Surgeon: Surgeons and Role: [...] pericardial patch and PTFE willard over the SOUND MIXER was unincorporated. - Resection of prior femoral [...] Destination 1 : Left femoral proximal graft Accounts Receivable Specialist Leg, Left SURGICAL PATHOLOGY Hayley Torres MD 09/28/2024 1410 2 : Left distal BK pop graft Accounts Receivable Specialist Leg, Left SURGICAL PATHOLOGY Hayley Torres MD [...] Indications: 49M with history of a left SOUND MIXER-BK popliteal artery bypass with PTFE performed in [...] solution. Systemic heparin was administered. Next, the SOUND MIXER, SFA, and DFA were clamped. An 11-blade scalpel was used to excise the PTFE graft willard and the prior bovine pericardial patch, and all prior Prolene sutures were removed. Residual plaque in the arterial lumen was removed using a Ephraim elevator. The harvested vein patch was cut [...] the midline with division of the first visual designer, such that the sartorius muscle was free [...] Torres MD - 09/28/2024 12:23 PM EST [facility] [place] Note Patient Name: Geovanna Dixon Jr. : [id number] MR#: [id number] Case Date: 09/28/2024 Surgeon: Surgeons and Role: [...] - Prior bovine pericardial patch over the SOUND MIXER was unincorporated. - Resection of prior femoral [...] No * Consult Note - Tea Nguyen, [facility] - 09/28/2024 9:23 AM EST [...] Analysis of the most recent level(s) using Purid[employer]RX gives the following patient-specific pharmacokinetic parameters: CL: [...] 09/30 - Continue to monitor serum creatinine eTa Nguyen * Plan of Care - Mariya [...] Note Patient Name: Geovanna Dixon Jr. : [id number] MR#: [id number] Case Date: 09/27/2024 Surgeon: Surgeons and Role: [...] Torres MD - 09/27/2024 4:27 PM EST [facility] [place] Note Patient Name: Geovanna Dixon Jr. : [id number] MR#: [id number] Case Date: 09/26/2024 Surgeon: Surgeons and Role: [...] distal anastomoses with Prolene tag on latter. [place] drain placed from left groin to left [...] ANAEROBIC Hayley Torres MD 09/26/2024 1702 Drains: [place] drain between left groin to left thigh [...] HPI/Surgical Indications: 49M with history of left SOUND MIXER-BK popliteal artery bypass graft with PTFE (July [...] Torres MD - 09/27/2024 4:27 PM EST [facility] [place] Note Patient Name: Geovanna Dixon Jr. : [id number] MR#: [id number] Case Date: 09/27/2024 Surgeon: Surgeons and Role: [...] 2nd toe amputation who was transferred from [facility] given concern for infected left fem-BK popliteal [...] smoking 1 week ago. 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 Glargine 25 units administered this [...] outpatient diabetes regimen: Diabetes Provider: PCP in [facility] Medications: Lantus 50 units, lispro 10 units [...] Cunningham APRN Endocrinology Diabetes Management Service Pager: [phone] Weekends please page [phone] 80 minute visit was spent in counseling [...] 180 days) Any patient receiving care in [place] must abide by [place] law. The hierarchy [...] (i) The agent with financial power of attorney lawyer or a conservator appointed in accordance with [...] homeless or living in a intermediate (including now)?: No In the past 12 months has the [employer], gas, oil, or water [employer] threatened to shut off services in your [...] DME: none Home Address confirmed as: [address] [facility] [address] Social & Family Supports: All names listed [...] his home before. Health/Prescription Coverage: Primary Insurance: [employer] MANAGED MEDICARE Payor: LAFASO MANAGED MEDICARE / Plan: [facility] PPO / Product Type: *No Product type* / Secondary Insurance: N/A ; Prescription Coverage: Yes Preferred Pharmacy: [facility] - [place], [place] - [address] [address] [facility] [id number] - [place], [place] - [address] [address] [place], [place] - [address] [place] [address] [address] [facility] [address] [facility] [address] [place] Status: Patient is a : No Primary Care Provider confirmed: JUSTIN Roberson [phone] Patient/Caregiver Goals of Treatment: patient will need [...] where referrals are placed. Provided patient with [facility] Star Quality Rating handout. They have requested referrals to: [facility]. [address] [place] [id number] Expected date of discharge: TBD Referral routed to the Interactive Multimedia Designer for matching with agency/vendor and to provide [...] care as indicated. Penny ROSAS, RN Phone: [phone] Pager: [phone] * Consult Note - Stacey Thomas MD [...] extremity aching prompting him to go to [facility]. The groin pain dissipated. About a week later on 09/26 he developed left-sided groin pain prompting him to go to [facility] once again. Lab work notable for WBC count of 21, lactic acid 3.6. He underwent evaluation with a CT scan demonstrating an abscess from the left groin operative site the entire left of the graft down by the knee. He was transferred to [facility] for further care and he was initiated [...] 3.51) performed by Thony Garcia MD at [facility] MAIN OR PRO BYPASS GRAFT OTHR, FEM-TIBIAL Left 08/01/2024 @BYPASS GRAFT, FEM-ANT TIBIAL, -POST TIBIAL, -PERONEAL, -DP W\ SYNTHETIC CONDUIT (WRVU 23.66) performed by Lisette Maldonado MD at [facility] MAIN OR PRO CABG, ARTERY-VEIN, SINGLE 01/04/2012 @CABG, VENOUS & ARTERIAL GRAFT;SINGLE VEIN GRAFT performed by INNA TOVAR at [facility] MAIN OR PRO ENDOSCOPY W/VIDEO-ASST VEIN HARVEST, CABG 01/04/2012 ENDOSCOPIC HARVEST VEIN(S) FOR CABG performed by INNA TOVAR at [facility] MAIN OR VS ARTERIOGRAM LOWER EXTREMITY VASCULAR SURGERY 07/20/2024 VS Arteriogram Lower Extremity Vascular Surgery 07/20/2024 Anabel Finney MD [facility] INTERVENTIONL RAD Medications: potassium chloride ER (Klor-Con [...] & 2100. LLE DP signal absent on 2200 assessment, Vascular MD @ bedside & CC [...] admitted to SICU as a transfer from [facility] for suspected graft infection/sepsis. A/Ox4, able to [...] Torres MD - 09/26/2024 4:50 PM EST [facility] [place] Patient Name: Geovanna Dixon Jr. : [id number] MR#: [id number] Case Date: 09/26/2024 Surgeon: Surgeons and Role: * Hayley Torres MD - Primary * Dolly Dan MD - Resident - Assisting * Ken Moeller MD - Resident - Assisting Preoperative diagnosis: left infected femoral to below knee bypass graft Postoperative diagnosis: left infected femoral to below knee bypass graft Procedure: Explant of infected LEFT SOUND MIXER to below-knee popliteal artery PTFE bypass graft [...] Indications: 49M with history of a left SOUND MIXER-BK popliteal artery bypass with PTFE performed in [...] tunnel using a large Amy clamp, and [place] drains were used to prevent the tunnel [...] 2nd toe amputation who was transferred from [facility] given concern for infected left fem-BK popliteal [...] 3.51) performed by Thony Garcia MD at [facility] MAIN OR PRO BYPASS GRAFT OTHR, FEM-TIBIAL Left 08/01/2024 @BYPASS GRAFT, FEM-ANT TIBIAL, -POST TIBIAL, -PERONEAL, -DP W\ SYNTHETIC CONDUIT (WRVU 23.66) performed by Lisette Maldonado MD at [facility] MAIN OR PRO CABG, ARTERY-VEIN, SINGLE 01/04/2012 @CABG, VENOUS & ARTERIAL GRAFT;SINGLE VEIN GRAFT performed by INNA TOVAR at [facility] MAIN OR PRO ENDOSCOPY W/VIDEO-ASST VEIN HARVEST, CABG 01/04/2012 ENDOSCOPIC HARVEST VEIN(S) FOR CABG performed by INNA TOVAR at [facility] MAIN OR VS ARTERIOGRAM LOWER EXTREMITY VASCULAR SURGERY 07/20/2024 VS Arteriogram Lower Extremity Vascular Surgery 07/20/2024 Anabel Finney MD [facility] INTERVENTIONL RAD Social Hx: Social History Socioeconomic [...] 3 times daily. Use as instructed Indications: [id number] each 1 FreeStyle Lancets 28 gauge Misc [...] 1 insulin needles, disposable, 32 gauge x Needle Inject 1 each subcutaneously daily. Indications: [...] 2nd toe amputation who was transferred from [facility] given concern for infected left fem-BK popliteal [...] 10/23/2024 1:00 PM EST Appointment XRay at [address] [place] [address] Isabela Hayward APRN [facility] [place] [address] 11/09/2024 1:30 PM EST Office Visit [place] [address] Isabela Hayward, DOCUMENT MANAGEMENT CONSULTANT [facility] [place] [address] 11/10/2024 10:00 AM EST Office Visit [place] [address] Dai Whitman APRN 11/21/2024 2:15 PM EST Office [place] [address] Dayanara Grover MD [facility] [place] [address] Pending Results Name Type Priority Associated Diagnoses [...] POC, GLUCOSE Routine 10/04/2024 4:49 PM EST DEBRIDEMENT SKIN AND SUBCU, LOWER EXTREMITY [...] Debridement Muscle And Fascia 20 Sq Cm/< (13381) 10/02/2024 1:28 PM EST Infected LLE graft [...] 09/26/2024 2:39 PM EST TYPE AND SCREEN ([facility]BABITA[place] STAT 09/26/2024 2:39 PM EST PHOSPHORUS STAT [...] Non-fasting (10/16/2024) Glucose Lvl - External 124(H) [facility] Blood Urea Nitrogen - External 17 [facility] Creatinine - External 0.9 [facility] EGFR - External 104.05 [facility] Anion Gap - External 11.6(H) [facility] Sodium - External 141 [facility] Potassium - External 4.3 [facility] Chloride - External 103 [facility] CO2 - External 26.4 [facility] Calcium - External 9.0 [facility] Protein, Total - External 6.9 [facility] Albumin - External 3.0(L) [facility] Total Bilirubin - External 0.20 [facility] Alk Phos - External 124(H) [facility] AST (SGOT) - External 12 [facility] ALT (SGPT) - External 22 [facility] Blood VENOUS BLOOD SPECIMEN / Unknown 10/16/2024 Amaya Hernandez MD CHEMISTRY ORDERABLES [facility] [address] [place] [phone] * CK (10/16/2024) CK, Total - External 39 [facility] Blood VENOUS BLOOD SPECIMEN / Unknown 10/16/2024 Amaya Hernandez MD CHEMISTRY ORDERABLES [place] [id number] [facility] [facility] [address] [place], [place] [address] [phone] * (ABNORMAL) CBC (with Diff) (10/16/2024) WBC - External 10.99(H) [facility] RBC - External 3.71(L) [facility] Hemoglobin - External 10.8(L) [facility] Hematocrit - External 33.8(L) [facility] MCV - External 91 [facility] MCH - External 29.1 [facility] MCHC - External 32.0 [facility] RDWCV - External 14.2(H) [facility] Platelets - External 512(H) [facility] MPV - External 9.8 [facility] NRBC % - External 0.0 [facility] NRBC Abs - External 0.0 [facility] Neutrophils % - External 64.2 [facility] Lymphocytes % - External 25.8 [facility] Monocytes % - External 6.8 [facility] Eosinophils % - External 2.0 [facility] Basophils % - External 0.9 [facility] Immature Gran % - External 0.3 [facility] Neutr ABS (ANC) - External 7.06(H) [facility] Lymphocyte ABS - External 2.84 [facility] Monocyte ABS - External 0.75 [facility] Eosinophil ABS - External 0.22 [facility] Basophil ABS - External 0.10 [facility] Blood VENOUS BLOOD SPECIMEN / Unknown 10/16/2024 Amaya Hernandez MD HEMATOLOGY ORDERABLE S [address] [place], [place] [address] [phone] * POC, GLUCOSE (10/10/2024 4:27 PM EST) Glucometer, POC 172 65 - 199 mg/dL 10/10/2024 4:27 PM EST [facility] Comment:Supplemental ranges: <140 mg/dL before meals <180 mg/dL all other times of the day. Blood CAPILLARY BLOOD / Unknown 10/10/2024 4:27 PM EST 10/10/2024 4:27 PM EST Hayley Torres MD POINT OF CARE TEST O GILDA [facility] [place] [address] * POC, GLUCOSE (10/10/2024 11:10 AM EST) Glucometer, POC 174 65 - 199 mg/dL 10/10/2024 11:11 AM EST [facility] Comment:Supplemental ranges: <140 mg/dL before meals <180 mg/dL all other times of the day. Blood CAPILLARY BLOOD / Unknown 10/10/2024 11:10 AM EST 10/10/2024 11:11 AM EST Hayley Torres MD POINT OF CARE TEST O GILDA Performing Organization Address City/[facility]/ZIP Co de Phone Number [facility] [place] [address] * POC, GLUCOSE (10/10/2024 7:46 AM EST) Glucometer, POC 141 65 - 199 mg/dL 10/10/2024 7:46 AM EST [facility] Comment:Supplemental ranges: <140 mg/dL before meals <180 mg/dL all other times of the day. Blood CAPILLARY BLOOD / Unknown 10/10/2024 7:46 AM EST 10/10/2024 7:46 AM EST Hayley Torres MD POINT OF CARE TEST O GILDA [facility] [place] [address] * POC, GLUCOSE (10/10/2024 6:11 AM EST) Glucometer, POC 127 65 - 199 mg/dL 10/10/2024 6:11 AM EST [facility] Comment:Supplemental ranges: <140 mg/dL before meals <180 mg/dL all other times of the day. Blood CAPILLARY BLOOD / Unknown 10/10/2024 6:11 AM EST 10/10/2024 6:11 AM EST Hayley Torres MD POINT OF CARE TEST O RDERABLES [facility] [place] [place] [address] * CK (10/10/2024 12:33 AM EST) [facility] Creatine Kinase 32 0 - 200 unit/L 10/10/2024 8:54 AM [facility] Blood VENOUS BLOOD SPECIMEN / Unknown Venipuncture / Unknown 10/10/2024 12:33 AM EST 10/10/2024 12:43 AM EST María Carranza APRN CHEMISTRY ORDER RANDELL Performing Organization Address City/[facility]/ZIP Co de Phone Number [facility] [place] [address] * (ABNORMAL) CBC (with Diff) (10/10/2024 12:33 AM EST) [facility] White Blood Cell 11.57(H) 4.00 - 9.50 x10(3)/mc L 10/10/2024 12:48 AM [facility] Red Blood Cell 3.75(L) 4.58 - 5.54 x10(6)/mc L 10/10/2024 12:48 AM EST [facility] Hemoglobin 11.1(L) 13.7 - 16.5 g/dL 10/10/2024 12:48 AM [facility] Hematocrit 33.5(L) 40.5 - 48.5 % 10/10/2024 12:48 AM [facility] Mean Cell Volume 89.3 82.9 - 93.1 fL 10/10/2024 12:48 AM [facility] Mean Cell Hemoglobin 29.6 27.5 - 32.1 pg 10/10/2024 12:48 AM [facility] Mean Cell Hemoglobin Concentration 33.1 32.0 - 35.7 g/dL 10/10/2024 12:48 AM [facility] Platelet 823(H) 145 - 357 x10(3)/mc L 10/10/2024 12:48 AM [facility] Mean Platelet Volume 9.2 7.6 - 12.9 fL 10/10/2024 12:48 AM [facility] RDW Standard Deviation 46.3(H) 36.0 - 45.0 fL 10/10/2024 12:48 AM [facility] RDW coefficient of variation 14.6(H) 11.4 - 13.8 % 10/10/2024 12:48 AM [facility] NRBC% auto 0.0 % 10/10/2024 12:48 AM [facility] NRBC Absolute <0.01 <0.01 x10(3)/mc L 10/10/2024 12:48 AM [facility] Neutrophil % 61.3 % 10/10/2024 12:48 AM [facility] Neutrophil Absolute (ANC) - Automated 7.08(H) 1.70 - 6.10 x10(3)/mc L 10/10/2024 12:48 AM [facility] Lymph % 28.7 % 10/10/2024 12:48 AM [facility] Lymph Absolute 3.32(H) 0.90 - 3.20 x10(3)/mc L 10/10/2024 12:48 AM [facility] Monocyte % 7.0 % 10/10/2024 12:48 AM [facility] Monocyte Absolute 0.81 0.30 - 0.90 x10(3)/mc L 10/10/2024 12:48 AM [facility] Eos % 1.6 % 10/10/2024 12:48 AM [facility] Eos Absolute 0.19 0.00 - 0.40 x10(3)/mc L 10/10/2024 12:48 AM [facility] Basophil % 1.0 % 10/10/2024 12:48 AM [facility] Baso Absolute 0.12(H) 0.00 - 0.10 x10(3)/mc L 10/10/2024 12:48 AM [facility] Immature Gran % 0.4 % 12:48 AM [facility] Immature Gran Absolute 0.05(H) 0.00 - 0.04 x10(3)/mc L 10/10/2024 12:48 AM [facility] Blood VENOUS BLOOD SPECIMEN / Unknown Venipuncture / Unknown 10/10/2024 12:33 AM EST 10/10/2024 12:43 AM EST Hayley Torres MD HEMATOLOGY ORDERABLE S [facility] [place] [address] * (ABNORMAL) Basic Metabolic Panel (10/10/2024 12:33 AM EST) Glucose 125 65 - 199 mg/dL 10/10/2024 1:12 AM [facility] Comment:Glucose Concentratio n >=200 mg/dL plus symptoms is consistent with Diabetes Mellitus. Blood Urea Nitrogen 19 10 - 20 mg/dL 10/10/2024 1:12 AM [facility] Creatinine 0.57(L) 0.80 - 1.50 mg/dL 10/10/2024 1:12 AM [facility] Sodium 138 135 - 145 mMol/L 10/10/2024 1:12 AM [facility] Potassium 4.1 3.5 - 5.0 mMol/L 10/10/2024 1:12 AM EST [facility] Chloride 103 98 - 107 mMol/L 10/10/2024 1:12 AM [facility] Carbon Dioxide 25 22 - 31 mMol/L 10/10/2024 1:12 AM [facility] Anion Gap 10 5 - 15 mMol/L 10/10/2024 1:12 AM EST [facility] Calcium 9.4 8.5 - 10.5 mg/dL 10/10/2024 1:12 AM [facility] Est Glomerular Filtration Rate - Male 119 mL/min/1. 73 m?? 10/10/2024 1:12 AM [facility] Comment: This patient's estimated GFR [...] Torres MD CHEMISTRY ORDERABLES Performing Organization Address City/State/[facility] Co de Phone Number [facility] [address] * Phosphorus (10/10/2024 12:33 AM EST) Phosphorus 3.8 2.5 - 4.5 mg/dL 10/10/2024 1:12 AM [facility] Blood VENOUS BLOOD SPECIMEN / Unknown Venipuncture / Unknown 10/10/2024 12:33 AM EST 10/10/2024 12:43 AM EST Hayley Torres MD CHEMISTRY ORDERABLES Performing Organization Address City/[facility]/ZIP Co de Phone Number [facility] [place] [address] * Magnesium (10/10/2024 12:33 AM EST) Magnesium 0.81 0.69 - 1.07 mMol/L 10/10/2024 1:12 AM EST [facility] Blood VENOUS BLOOD SPECIMEN / Unknown Venipuncture / Unknown 10/10/2024 12:33 AM EST 10/10/2024 12:43 AM EST Hayley Torres MD CHEMISTRY ORDERABLES Performing Organization Address [facility] Co de Phone Number [facility] [place] [address] * POC, GLUCOSE (10/10/2024 12:31 AM EST) Glucometer, POC 119 65 - 199 mg/dL 10/10/2024 12:32 AM EST [facility] Comment:Supplemental ranges: <140 mg/dL before meals <180 mg/dL all other times of the day. Blood CAPILLARY BLOOD / Unknown 10/10/2024 12:31 AM EST 10/10/2024 12:32 AM EST Hayley Torres MD POINT OF CARE TEST O RDERABLES Performing Organization Address City/[facility]/ZIP Co de Phone Number [facility] [place] [address] * POC, GLUCOSE (10/09/2024 8:16 PM EST) Glucometer, POC 104 65 - 199 mg/dL 10/09/2024 8:16 PM EST [facility] Comment:Supplemental ranges: <140 mg/dL before meals <180 mg/dL all other times of the day. Blood CAPILLARY BLOOD / Unknown 10/09/2024 8:16 PM EST 10/09/2024 8:16 PM EST Hayley Torres MD POINT OF CARE TEST O RDERAHERNANDEZ Performing Organization Address [facility] Co de Phone Number [facility] [place] [address] * POC, GLUCOSE (10/09/2024 3:57 PM EST) Glucometer, POC 120 65 - 199 mg/dL 10/09/2024 3:57 PM EST [facility] Comment:Supplemental ranges: <140 mg/dL before meals <180 mg/dL all other times of the day. Blood CAPILLARY BLOOD / Unknown 10/09/2024 3:57 PM EST 10/09/2024 3:57 PM EST Hayley Torres MD POINT OF CARE TEST O GILDA Performing Organization Address [facility] Co de Phone Number [facility] [place] [address] * Place PICC Line: Contact Vascular Access Page [phone] Extremity to exclude: No restrictions; Is PICC [...] to the planned procedure. Hand Hygiene: The inspector precision did perform hand hygiene prior to line insertion. Catheter type: PICC Lot number: [id number] Procedure Technique: Skin was prepped with chlorhexidine. [...] Guidance (IV Team) (10/09/2024 1:55 PM EST) Pathologist [employer] WORKSTATION ID [id number] RAD Anatomical Region Laterality Modality N/A Radio [...] have questions please contact the health healthcare technician that requested your imaging first. ? Electronically signed by: Terell Salvador MD, [facility] ([phone]), at 10/09/2024 3:30 PM Narrative 10/09/2024 3:30 [...] who have questions please contactthe health healthcare technician that requested your imaging first. Electronically signed by: Terell Salvador MD, [facility]([phone]), at 10/09/2024 3:30 PM María Carranza APRN IMG [facility]AN[facility] * POC, GLUCOSE (10/09/2024 11:40 AM EST) [facility] Glucometer, POC 180 65 - 199 mg/dL 10/09/2024 11:40 AM EST [facility] Comment:Supplemental ranges: <140 mg/dL before meals <180 mg/dL all other times of the day. Blood CAPILLARY BLOOD / Unknown 10/09/2024 11:40 AM EST 10/09/2024 11:41 AM EST Hayley Torres MD POINT OF CARE TEST O GILDA Performing Organization Address City/[facility]/ZIP Co de Phone Number [facility] [place] [place] [address] * (ABNORMAL) POC, GLUCOSE (10/09/2024 7:35 AM EST) Glucometer, POC 215(H) 65 - 199 mg/dL 10/09/2024 7:36 AM EST [facility] Comment:Supplemental ranges: <140 mg/dL before meals <180 mg/dL all other times of the day. Blood CAPILLARY BLOOD / Unknown 10/09/2024 7:35 AM EST 10/09/2024 7:36 AM EST Hayley Torres MD POINT OF CARE TEST O GILDA Performing Organization Address [facility]/ZIP Co de Phone Number [facility] [place] [place] [address] * POC, GLUCOSE (10/09/2024 4:26 AM EST) Glucometer, POC 175 65 - 199 mg/dL 10/09/2024 4:26 AM EST [facility] Comment:Supplemental ranges: <140 mg/dL before meals <180 mg/dL all other times of the day. Blood CAPILLARY BLOOD / Unknown 10/09/2024 4:26 AM EST 10/09/2024 4:26 AM EST Hayley Torres MD POINT OF CARE TEST O GILDA Performing Organization Address City/[facility]/ZIP Co de Phone Number [facility] [place] [address] * (ABNORMAL) CBC (with Diff) (10/09/2024 12:45 AM [facility]) White Blood Cell 11.27(H) 4.00 - 9.50 x10(3)/mc L 10/09/2024 1:31 AM [facility] Red Blood Cell 3.74(L) 4.58 - 5.54 x10(6)/mc L 10/09/2024 1:31 AM [facility] Hemoglobin 10.8(L) 13.7 - 16.5 g/dL 10/09/2024 1:31 AM [facility] Hematocrit 33.5(L) 40.5 - 48.5 % 10/09/2024 1:31 AM [facility] Mean Cell Volume 89.6 82.9 - 93.1 fL 10/09/2024 1:31 AM [facility] Mean Cell Hemoglobin 28.9 27.5 - 32.1 pg 10/09/2024 1:31 AM [facility] Mean Cell Hemoglobin Concentration 32.2 32.0 - 35.7 g/dL 10/09/2024 1:31 AM [facility] Platelet 886(H) 145 - 357 x10(3)/mc L 10/09/2024 1:31 AM [facility] Mean Platelet Volume 9.5 7.6 - 12.9 fL 10/09/2024 1:31 AM [facility] RDW Standard Deviation 47.7(H) 36.0 - 45.0 fL 10/09/2024 1:31 AM [facility] RDW coefficient of variation 14.6(H) 11.4 - 13.8 % 10/09/2024 1:31 AM [facility] NRBC% auto 0.0 % 10/09/2024 1:31 AM [facility] NRBC Absolute <0.01 <0.01 x10(3)/mc L 10/09/2024 1:31 AM [facility] Neutrophil % 61.7 % 10/09/2024 1:31 AM [facility] Neutrophil Absolute (ANC) - Automated 6.95(H) 1.70 - 6.10 x10(3)/mc L 10/09/2024 1:31 AM [facility] Lymph % 28.3 % 10/09/2024 1:31 AM [facility] Lymph Absolute 3.19 0.90 - 3.20 x10(3)/mc L 10/09/2024 1:31 AM [facility] Monocyte % 6.8 % 10/09/2024 1:31 AM [facility] Monocyte Absolute 0.77 0.30 - 0.90 x10(3)/mc L 10/09/2024 1:31 AM [facility] Eos % 1.5 % 10/09/2024 1:31 AM [facility] Eos Absolute 0.17 0.00 - 0.40 x10(3)/mc L 10/09/2024 1:31 AM [facility] Basophil % 1.1 % 10/09/2024 1:31 AM [facility] Baso Absolute 0.12(H) 0.00 - 0.10 x10(3)/mc L 10/09/2024 1:31 AM EST [facility] Immature Gran % 0.6 % 1:31 AM [facility] Immature Gran Absolute 0.07(H) 0.00 - 0.04 x10(3)/mc L 10/09/2024 1:31 AM [facility] Blood VENOUS BLOOD SPECIMEN / Unknown Venipuncture / Unknown 10/09/2024 12:45 AM EST 10/09/2024 1:27 AM EST Hayley Torres MD HEMATOLOGY ORDERABLE S [facility] [place] [address] * (ABNORMAL) Basic Metabolic Panel (10/09/2024 12:45 AM EST) Glucose 135 65 - 199 mg/dL 10/09/2024 1:54 AM [facility] Comment:Glucose Concentratio n >=200 mg/dL plus symptoms is consistent with Diabetes Mellitus. Blood Urea Nitrogen 22(H) 10 - 20 mg/dL 10/09/2024 1:54 AM [facility] Creatinine 0.53(L) 0.80 - 1.50 mg/dL 10/09/2024 1:54 AM [facility] Sodium 138 135 - 145 mMol/L 10/09/2024 1:54 AM [facility] Potassium 4.1 3.5 - 5.0 mMol/L 10/09/2024 1:54 AM [facility] Chloride 102 98 - 107 mMol/L 10/09/2024 1:54 AM [facility] Carbon Dioxide 24 22 - 31 mMol/L 10/09/2024 1:54 AM [facility] Anion Gap 12 5 - 15 mMol/L 10/09/2024 1:54 AM [facility] Calcium 9.4 8.5 - 10.5 mg/dL 10/09/2024 1:54 AM [facility] Est Glomerular Filtration Rate - Male 122 mL/min/1. 73 m?? 10/09/2024 1:54 AM [facility] Comment: This patient's estimated GFR [...] Torres MD CHEMISTRY ORDERABLES Performing Organization Address City/[facility]/ZIP Co de Phone Number [facility] [place] [address] * Phosphorus (10/09/2024 12:45 AM EST) Phosphorus 3.9 2.5 - 4.5 mg/dL 10/09/2024 1:54 AM EST [facility] Blood VENOUS BLOOD SPECIMEN / Unknown Venipuncture / Unknown 10/09/2024 12:45 AM EST 10/09/2024 1:27 AM EST Hayley Torres MD CHEMISTRY ORDERABLES Performing Organization Address City/[facility] Co de Phone Number [facility] [place] [address] * Magnesium (10/09/2024 12:45 AM EST) Magnesium 0.80 0.69 - 1.07 mMol/L 10/09/2024 1:54 AM EST [facility] Blood VENOUS BLOOD SPECIMEN / Unknown Venipuncture / Unknown 10/09/2024 12:45 AM EST 10/09/2024 1:27 AM EST Hayley Torres MD CHEMISTRY ORDERABLES Performing Organization Address City/[facility] Co de Phone Number [facility] [place] [address] * POC, GLUCOSE (10/09/2024 12:11 AM EST) Glucometer, POC 157 65 - 199 mg/dL 10/09/2024 12:11 AM EST [facility] Comment:Supplemental ranges: <140 mg/dL before meals <180 mg/dL all other times of the day. Blood CAPILLARY BLOOD / Unknown 10/09/2024 12:11 AM EST 10/09/2024 12:11 AM EST Hayley Torres MD POINT OF CARE TEST O RDERAHERNANDEZ Performing Organization Address City/[facility]/ZIP Co de Phone Number [facility] [place] [place] [address] * POC, GLUCOSE (10/08/2024 7:25 PM EST) Glucometer, POC 157 65 - 199 mg/dL 10/08/2024 7:25 PM EST [facility] Comment:Supplemental ranges: <140 mg/dL before meals <180 mg/dL all other times of the day. Blood CAPILLARY BLOOD / Unknown 10/08/2024 7:25 PM EST 10/08/2024 7:25 PM EST Hayley Torres MD POINT OF CARE TEST O GILDA Performing Organization Address [facility] Co de Phone Number [facility] [place] [place] [address] * POC, GLUCOSE (10/08/2024 5:54 PM EST) Glucometer, POC 198 65 - 199 mg/dL 10/08/2024 5:54 PM EST [facility] Comment:Supplemental ranges: <140 mg/dL before meals <180 mg/dL all other times of the day. Blood CAPILLARY BLOOD / Unknown 10/08/2024 5:54 PM EST 10/08/2024 5:54 PM EST Hayley Torres MD POINT OF CARE TEST O GILDA Performing Organization Address City/[facility]/ZIP Co de Phone Number [facility] [place] [place] [address] * (ABNORMAL) POC, GLUCOSE (10/08/2024 4:08 PM EST) Glucometer, POC 281(H) 65 - 199 mg/dL 10/08/2024 4:08 PM EST [facility] Comment:Supplemental ranges: <140 mg/dL before meals <180 mg/dL all other times of the day. Blood CAPILLARY BLOOD / Unknown 10/08/2024 4:08 PM EST 10/08/2024 4:09 PM EST Hayley Torres MD POINT OF CARE TEST O GILDA Performing Organization Address City/[facility] Co de Phone Number [facility] [place] [address] * POC, GLUCOSE (10/08/2024 12:44 PM EST) Glucometer, POC 146 65 - 199 mg/dL 10/08/2024 12:44 PM EST [facility] Comment:Supplemental ranges: <140 mg/dL before meals <180 mg/dL all other times of the day. Blood CAPILLARY BLOOD / Unknown 10/08/2024 12:44 PM EST 10/08/2024 12:44 PM EST Hayley Torres MD POINT OF CARE TEST O GILDA Performing Organization Address [facility] Co de Phone Number [facility] [place] [address] * POC, GLUCOSE (10/08/2024 8:30 AM EST) Glucometer, POC 172 65 - 199 mg/dL 10/08/2024 8:30 AM EST [facility] Comment:Supplemental ranges: <140 mg/dL before meals <180 mg/dL all other times of the day. Blood CAPILLARY BLOOD / Unknown 10/08/2024 8:30 AM EST 10/08/2024 8:30 AM EST Hayley Torres MD POINT OF CARE TEST O GILDA Performing Organization Address City/[facility] Co de Phone Number [facility] [place] [address] * Vancomycin Level, Random (10/08/2024 5:59 AM EST) Vancomycin, Random 6.8 mg/L 2023 7:58 AM EST [facility] Comment:This level is for de termination of the patient's vancomycin bkuc-xfoor-zxu-curve (AUC) value. Contact the inpatient pharmacy for interpretation. Blood VENOUS BLOOD SPECIMEN / Unknown Venipuncture / Unknown 10/08/2024 5:59 AM EST 10/08/2024 7:29 AM EST Hayley Torres MD CHEMISTRY ORDERABLES Performing Organization Address City/[facility]/ZIP Co de Phone Number [facility] [place] [address] * POC, GLUCOSE (10/08/2024 4:02 AM EST) [facility] Glucometer, POC 163 65 - 199 mg/dL 10/08/2024 4:02 AM EST [facility] Comment:Supplemental ranges: <140 mg/dL before meals <180 mg/dL all other times of the day. Blood CAPILLARY BLOOD / Unknown 10/08/2024 4:02 AM EST 10/08/2024 4:02 AM EST Hayley Torres MD POINT OF CARE TEST O RDERABLES Performing Organization Address City/[facility] Co de Phone Number [facility] [place] [address] * (ABNORMAL) CBC (with Diff) (10/08/2024 12:08 AM EST) White Blood Cell 10.35(H) 4.00 - 9.50 x10(3)/mc L 10/08/2024 12:29 AM EST [facility] Red Blood Cell 3.53(L) 4.58 - 5.54 x10(6)/mc L 10/08/2024 12:29 AM EST [facility] Hemoglobin 10.2(L) 13.7 - 16.5 g/dL 10/08/2024 12:29 AM [facility] Hematocrit 31.7(L) 40.5 - 48.5 % 10/08/2024 12:29 AM [facility] Mean Cell Volume 89.8 82.9 - 93.1 fL 10/08/2024 12:29 AM [facility] Mean Cell Hemoglobin 28.9 27.5 - 32.1 pg 10/08/2024 12:29 AM [facility] Mean Cell Hemoglobin Concentration 32.2 32.0 - 35.7 g/dL 10/08/2024 12:29 AM [facility] Platelet 778(H) 145 - 357 x10(3)/mc L 10/08/2024 12:29 AM [facility] Mean Platelet Volume 9.1 7.6 - 12.9 fL 10/08/2024 12:29 AM [facility] RDW Standard Deviation 47.5(H) 36.0 - 45.0 fL 10/08/2024 12:29 AM [facility] RDW coefficient of variation 14.6(H) 11.4 - 13.8 % 10/08/2024 12:29 AM [facility] NRBC% auto 0.0 % 10/08/2024 12:29 AM [facility] NRBC Absolute <0.01 <0.01 x10(3)/mc L 10/08/2024 12:29 AM [facility] Neutrophil % 60.9 % 10/08/2024 12:29 AM [facility] Neutrophil Absolute (ANC) - Automated 6.30(H) 1.70 - 6.10 x10(3)/mc L 10/08/2024 12:29 AM [facility] Lymph % 28.4 % 10/08/2024 12:29 AM [facility] Lymph Absolute 2.94 0.90 - 3.20 x10(3)/mc L 10/08/2024 12:29 AM [facility] Monocyte % 7.2 % 10/08/2024 12:29 AM [facility] Monocyte Absolute 0.75 0.30 - 0.90 x10(3)/mc L 10/08/2024 12:29 AM [facility] Eos % 1.7 % 10/08/2024 12:29 AM [facility] Eos Absolute 0.18 0.00 - 0.40 x10(3)/mc L 10/08/2024 12:29 AM [facility] Basophil % 1.0 % 10/08/2024 12:29 AM [facility] Baso Absolute 0.10 0.00 - 0.10 x10(3)/mc L 10/08/2024 12:29 AM [facility] Immature Gran % 0.8 % 12:29 AM [facility] Immature Gran Absolute 0.08(H) 0.00 - 0.04 x10(3)/mc L 10/08/2024 12:29 AM [facility] Blood VENOUS BLOOD SPECIMEN / Unknown Venipuncture / Unknown 10/08/2024 12:08 AM EST 10/08/2024 12:23 AM EST Hayley Torres MD HEMATOLOGY ORDERABLE S [facility] [place] [address] * (ABNORMAL) Basic Metabolic Panel (10/08/2024 12:08 AM EST) Glucose 151 65 - 199 mg/dL 10/08/2024 12:50 AM [facility] Comment:Glucose Concentratio n >=200 mg/dL plus symptoms is consistent with Diabetes Mellitus. Blood Urea Nitrogen 19 10 - 20 mg/dL 10/08/2024 12:50 AM [facility] Creatinine 0.60(L) 0.80 - 1.50 mg/dL 10/08/2024 12:50 AM [facility] Sodium 135 135 - 145 mMol/L 10/08/2024 12:50 AM [facility] Potassium 3.8 3.5 - 5.0 mMol/L 10/08/2024 12:50 AM [facility] Chloride 101 98 - 107 mMol/L 10/08/2024 12:50 AM [facility] Carbon Dioxide 25 22 - 31 mMol/L 10/08/2024 12:50 AM [facility] Anion Gap 9 5 - 15 mMol/L 10/08/2024 12:50 AM [facility] Calcium 9.2 8.5 - 10.5 mg/dL 10/08/2024 12:50 AM [facility] Est Glomerular Filtration Rate - Male 118 mL/min/1. 73 m?? 10/08/2024 12:50 AM [facility] Comment: This patient's estimated GFR [...] Torres MD CHEMISTRY ORDERABLES [facility] [place] [place] [address] * Phosphorus (10/08/2024 12:08 AM EST) Phosphorus 3.4 2.5 - 4.5 mg/dL 10/08/2024 12:50 AM [facility] Blood VENOUS BLOOD SPECIMEN / Unknown Venipuncture / Unknown 10/08/2024 12:08 AM EST 10/08/2024 12:23 AM EST Hayley Torres MD CHEMISTRY ORDERABLES Performing Organization Address [facility]/ZIP Co de Phone Number [facility] [place] [address] * Magnesium (10/08/2024 12:08 AM EST) Magnesium 0.85 0.69 - 1.07 mMol/L 10/08/2024 12:50 AM EST [facility] Blood VENOUS BLOOD SPECIMEN / Unknown Venipuncture / Unknown 10/08/2024 12:08 AM EST 10/08/2024 12:23 AM EST Hayley Torres MD CHEMISTRY ORDERABLES Performing Organization Address [facility] Co de Phone Number [facility] [place] [place] [address] * CK (10/08/2024 12:08 AM EST) Creatine Kinase 24 0 - 200 unit/L 10/08/2024 12:50 AM EST [facility] Blood VENOUS BLOOD SPECIMEN / Unknown Venipuncture / Unknown 10/08/2024 12:08 AM EST 10/08/2024 12:23 AM EST Hayley Torres MD CHEMISTRY ORDERABLES Performing Organization Address [facility] Co de Phone Number [facility] [place] [address] * POC, GLUCOSE (10/08/2024 12:05 AM EST) Glucometer, POC 100 65 - 199 mg/dL 10/08/2024 12:05 AM EST [facility] Comment:Supplemental ranges: <140 mg/dL before meals <180 mg/dL all other times of the day. Blood CAPILLARY BLOOD / Unknown 10/08/2024 12:05 AM EST 10/08/2024 12:05 AM EST Hayley Torres MD POINT OF CARE TEST O RDERABLES Performing Organization Address City/State/[facility] Co de Phone Number [facility] [place] [address] * POC, GLUCOSE (10/07/2024 8:29 PM EST) Glucometer, POC 107 65 - 199 mg/dL 10/07/2024 8:30 PM EST [facility] Comment:Supplemental ranges: <140 mg/dL before meals <180 mg/dL all other times of the day. Blood CAPILLARY BLOOD / Unknown 10/07/2024 8:29 PM EST 10/07/2024 8:30 PM EST Hayley Torres MD POINT OF CARE TEST O RDERAHERNANDEZ Performing Organization Address [facility] de Phone Number [facility] [place] [address] * POC, GLUCOSE (10/07/2024 4:33 PM EST) Glucometer, POC 129 65 - 199 mg/dL 10/07/2024 4:33 PM EST [facility] Comment:Supplemental ranges: <140 mg/dL before meals <180 mg/dL all other times of the day. Blood CAPILLARY BLOOD / Unknown 10/07/2024 4:33 PM EST 10/07/2024 4:34 PM EST Hayley Torres MD POINT OF CARE TEST O RDERABLES Performing Organization Address [facility] Co de Phone Number [facility] [place] [place] [address] * (ABNORMAL) POC, GLUCOSE (10/07/2024 10:58 AM EST) Glucometer, POC 221(H) 65 - 199 mg/dL 10/07/2024 10:59 AM EST [facility] Comment:Supplemental ranges: <140 mg/dL before meals <180 mg/dL all other times of the day. Blood CAPILLARY BLOOD / Unknown 10/07/2024 10:58 AM EST 10/07/2024 10:59 AM EST Hayley Torres MD POINT OF CARE TEST O GILDA Performing Organization Address [facility] Co de Phone Number [facility] [place] [address] * (ABNORMAL) POC, GLUCOSE (10/07/2024 7:42 AM EST) Glucometer, POC 201(H) 65 - 199 mg/dL 10/07/2024 7:42 AM EST [facility] Comment:Supplemental ranges: <140 mg/dL before meals <180 mg/dL all other times of the day. Blood CAPILLARY BLOOD / Unknown 10/07/2024 7:42 AM EST 10/07/2024 7:43 AM EST Hayley Torres MD POINT OF CARE TEST O GILDA Performing Organization Address [facility] Co de Phone Number [facility] [place] [place] [address] * POC, GLUCOSE (10/07/2024 3:58 AM EST) Glucometer, POC 150 65 - 199 mg/dL 10/07/2024 3:58 AM EST [facility] Comment:Supplemental ranges: <140 mg/dL before meals <180 mg/dL all other times of the day. Blood CAPILLARY BLOOD / Unknown 10/07/2024 3:58 AM EST 10/07/2024 3:58 AM EST Hayley Torres MD POINT OF CARE TEST O GILDA Performing Organization Address City/[facility] Co de Phone Number [facility] [place] [address] * (ABNORMAL) CBC (with Diff) (10/07/2024 12:06 AM EST) White Blood Cell 11.27(H) 4.00 - 9.50 x10(3)/mc L 10/07/2024 12:19 AM EST [facility] Red Blood Cell 3.47(L) 4.58 - 5.54 x10(6)/mc L 10/07/2024 12:19 AM [facility] Hemoglobin 10.1(L) 13.7 - 16.5 g/dL 10/07/2024 12:19 AM [facility] Hematocrit 30.9(L) 40.5 - 48.5 % 10/07/2024 12:19 AM [facility] Mean Cell Volume 89.0 82.9 - 93.1 fL 10/07/2024 12:19 AM [facility] Mean Cell Hemoglobin 29.1 27.5 - 32.1 pg 10/07/2024 12:19 AM [facility] Mean Cell Hemoglobin Concentration 32.7 32.0 - 35.7 g/dL 10/07/2024 12:19 AM [facility] Platelet 789(H) 145 - 357 x10(3)/mc L 10/07/2024 12:19 AM [facility] Mean Platelet Volume 9.0 7.6 - 12.9 fL 10/07/2024 12:19 AM [facility] RDW Standard Deviation 45.7(H) 36.0 - 45.0 fL 10/07/2024 12:19 AM [facility] RDW coefficient of variation 14.3(H) 11.4 - 13.8 % 10/07/2024 12:19 AM [facility] NRBC% auto 0.0 % 10/07/2024 12:19 AM [facility] NRBC Absolute <0.01 <0.01 x10(3)/mc L 10/07/2024 12:19 AM [facility] Neutrophil % 62.9 % 10/07/2024 12:19 AM [facility] Neutrophil Absolute (ANC) - Automated 7.09(H) 1.70 - 6.10 x10(3)/mc L 10/07/2024 12:19 AM [facility] Lymph % 28.3 % 10/07/2024 12:19 AM [facility] Lymph Absolute 3.19 0.90 - 3.20 x10(3)/mc L 10/07/2024 12:19 AM [facility] Monocyte % 5.7 % 10/07/2024 12:19 AM [facility] Monocyte Absolute 0.64 0.30 - 0.90 x10(3)/mc L 10/07/2024 12:19 AM [facility] Eos % 1.5 % 10/07/2024 12:19 AM [facility] Eos Absolute 0.17 0.00 - 0.40 x10(3)/mc L 10/07/2024 12:19 AM [facility] Basophil % 0.7 % 10/07/2024 12:19 AM [facility] Baso Absolute 0.08 0.00 - 0.10 x10(3)/mc L 10/07/2024 12:19 AM [facility] Immature Gran % 0.9 % 12:19 AM [facility] Immature Gran Absolute 0.10(H) 0.00 - 0.04 x10(3)/mc L 10/07/2024 12:19 AM [facility] Blood VENOUS BLOOD SPECIMEN / Unknown Venipuncture / Unknown 10/07/2024 12:06 AM EST 10/07/2024 12:11 AM EST Hayley Torres MD HEMATOLOGY ORDERABLE S [facility] [place] [address] * (ABNORMAL) Basic Metabolic Panel (10/07/2024 12:06 AM EST) Glucose 145 65 - 199 mg/dL 10/07/2024 12:40 AM [facility] Comment:Glucose Concentratio n >=200 mg/dL plus symptoms is consistent with Diabetes Mellitus. Blood Urea Nitrogen 18 10 - 20 mg/dL 10/07/2024 12:40 AM [facility] Creatinine 0.61(L) 0.80 - 1.50 mg/dL 10/07/2024 12:40 AM [facility] Sodium 139 135 - 145 mMol/L 10/07/2024 12:40 AM [facility] Potassium 4.0 3.5 - 5.0 mMol/L 10/07/2024 12:40 AM [facility] Chloride 104 98 - 107 mMol/L 10/07/2024 12:40 AM [facility] Carbon Dioxide 25 22 - 31 mMol/L 10/07/2024 12:40 AM [facility] Anion Gap 10 5 - 15 mMol/L 10/07/2024 12:40 AM [facility] Calcium 9.0 8.5 - 10.5 mg/dL 10/07/2024 12:40 AM [facility] Est Glomerular Filtration Rate - Male 117 mL/min/1. 73 m?? 10/07/2024 12:40 AM [facility] Comment: This patient's estimated GFR [...] Torres MD CHEMISTRY ORDERABLES [facility] [place] [address] * Phosphorus (10/07/2024 12:06 AM EST) Phosphorus 4.2 2.5 - 4.5 mg/dL 10/07/2024 12:40 AM EST [facility] Blood VENOUS BLOOD SPECIMEN / Unknown Venipuncture / Unknown 10/07/2024 12:06 AM EST 10/07/2024 12:11 AM EST Hayley Torres MD CHEMISTRY ORDERABLES Performing Organization Address City/[facility]/ZIP Co de Phone Number [facility] [place] [address] * Magnesium (10/07/2024 12:06 AM EST) Magnesium 0.85 0.69 - 1.07 mMol/L 10/07/2024 12:40 AM EST [facility] Blood VENOUS BLOOD SPECIMEN / Unknown Venipuncture / Unknown 10/07/2024 12:06 AM EST 10/07/2024 12:11 AM EST Hayley Torres MD CHEMISTRY ORDERABLES Performing Organization Address [facility]/ZIP Co de Phone Number [facility] [place] [address] * POC, GLUCOSE (10/07/2024 12:04 AM EST) Glucometer, POC 149 65 - 199 mg/dL 10/07/2024 12:04 AM EST [facility] Comment:Supplemental ranges: <140 mg/dL before meals <180 mg/dL all other times of the day. Blood CAPILLARY BLOOD / Unknown 10/07/2024 12:04 AM EST 10/07/2024 12:05 AM EST Hayley Torres MD POINT OF CARE TEST O RDERABLES Performing Organization Address City/[facility]/ZIP Co de Phone Number [facility] [place] [place] [address] * POC, GLUCOSE (10/06/2024 7:24 PM EST) Glucometer, POC 151 65 - 199 mg/dL 10/06/2024 7:24 PM EST [facility] Comment:Supplemental ranges: <140 mg/dL before meals <180 mg/dL all other times of the day. Blood CAPILLARY BLOOD / Unknown 10/06/2024 7:24 PM EST 10/06/2024 7:24 PM EST Hayley Torres MD POINT OF CARE TEST O GILDA Performing Organization Address [facility] Co de Phone Number [facility] [place] [place] [address] * POC, GLUCOSE (10/06/2024 5:32 PM EST) Glucometer, POC 126 65 - 199 mg/dL 10/06/2024 5:32 PM EST [facility] Comment:Supplemental ranges: <140 mg/dL before meals <180 mg/dL all other times of the day. Blood CAPILLARY BLOOD / Unknown 10/06/2024 5:32 PM EST 10/06/2024 5:32 PM EST Hayley Torres MD POINT OF CARE TEST O GILDA Performing Organization Address [facility] Co de Phone Number [facility] [place] [address] * XR PICC Placement Over 5 Years with Imaging Guidance (IV Team) (10/06/2024 3:04 PM EST) WORKSTATION ID [id number] DH RAD Anatomical Region Laterality Modality N/A Radio [...] have questions please contact the health healthcare technician that requested your imaging first. ? Electronically signed by: Charles Hamilton MD, [facility] ??([phone]), at 10/06/2024 3:43 PM Narrative 10/06/2024 3:43 [...] who have questions please contactthe health healthcare technician that requested your imaging first. Electronically signed by: Charles Hamilton MD, [facility]([phone]), at 10/06/2024 3:43 PM Hayley Torres MD IMG FLUORO ORDERABLE S * Place PICC Line: Contact Vascular Access Page [phone] Extremity to exclude: No restrictions; Is PICC [...] to the planned procedure. Hand Hygiene: The inspector precision did perform hand hygiene prior to line insertion. Catheter type: PICC Lot number: [id number] Procedure Technique: Skin was prepped with chlorhexidine. [...] CARE TEST O DIMITRIERAHERNANDEZ Performing Organization Address City/[facility]/ZIP Co de Phone Number [facility] [place] [address] * (ABNORMAL) POC, GLUCOSE (10/06/2024 7:34 AM EST) Glucometer, POC 209(H) 65 - 199 mg/dL 10/06/2024 7:34 AM EST [facility] Comment:Supplemental ranges: <140 mg/dL before meals <180 mg/dL all other times of the day. Blood CAPILLARY BLOOD / Unknown 10/06/2024 7:34 AM EST 10/06/2024 7:34 AM EST Hayley Torres MD POINT OF CARE TEST O DIMITRIERAHERNANDEZ [facility] [place] [place] [address] * POC, GLUCOSE (10/06/2024 3:29 AM EST) Glucometer, POC 151 65 - 199 mg/dL 10/06/2024 3:29 AM EST [facility] Comment:Supplemental ranges: <140 mg/dL before meals <180 mg/dL all other times of the day. Blood CAPILLARY BLOOD / Unknown 10/06/2024 3:29 AM EST 10/06/2024 3:29 AM EST Hayley Torres MD POINT OF CARE TEST O RDERABLES Performing Organization Address City/[facility]/ZIP Co de Phone Number [facility] [place] [address] * Vancomycin Level, Random (10/06/2024 12:03 AM EST) Pathologist [facility] Vancomycin, Random 20.5 mg/L 2023 9:00 AM EST [facility] Comment:This level is for de termination of the patient's vancomycin afbu-umiow-rrd-curve (AUC) value. Contact the inpatient pharmacy for interpretation. Blood VENOUS BLOOD SPECIMEN / Unknown Venipuncture / Unknown 10/06/2024 12:03 AM EST 10/06/2024 12:15 AM EST Hayley Torres MD CHEMISTRY ORDERABLES Performing Organization Address City/[facility]/ZIP Co de Phone Number [facility] [place] [place] [address] * (ABNORMAL) CBC (with Diff) (10/06/2024 12:03 AM EST) Pathologist [facility] White Blood Cell 12.26(H) 4.00 - 9.50 x10(3)/mc L 10/06/2024 12:19 AM [facility] Red Blood Cell 3.49(L) 4.58 - 5.54 x10(6)/mc L 10/06/2024 12:19 AM [facility] Hemoglobin 10.1(L) 13.7 - 16.5 g/dL 10/06/2024 12:19 AM [facility] Hematocrit 30.9(L) 40.5 - 48.5 % 10/06/2024 12:19 AM EST [facility] Mean Cell Volume 88.5 82.9 - 93.1 fL 10/06/2024 12:19 AM [facility] Mean Cell Hemoglobin 28.9 27.5 - 32.1 pg 10/06/2024 12:19 AM [facility] Mean Cell Hemoglobin Concentration 32.7 32.0 - 35.7 g/dL 10/06/2024 12:19 AM [facility] Platelet 772(H) 145 - 357 x10(3)/mc L 10/06/2024 12:19 AM [facility] Mean Platelet Volume 9.0 7.6 - 12.9 fL 10/06/2024 12:19 AM [facility] RDW Standard Deviation 46.0(H) 36.0 - 45.0 fL 10/06/2024 12:19 AM [facility] RDW coefficient of variation 14.5(H) 11.4 - 13.8 % 10/06/2024 12:19 AM [facility] NRBC% auto 0.0 % 10/06/2024 12:19 AM [facility] NRBC Absolute <0.01 <0.01 x10(3)/mc L 10/06/2024 12:19 AM [facility] Neutrophil % 66.7 % 10/06/2024 12:19 AM [facility] Neutrophil Absolute (ANC) - Automated 8.18(H) 1.70 - 6.10 x10(3)/mc L 10/06/2024 12:19 AM [facility] Lymph % 24.1 % 10/06/2024 12:19 AM [facility] Lymph Absolute 2.95 0.90 - 3.20 x10(3)/mc L 10/06/2024 12:19 AM [facility] Monocyte % 6.2 % 10/06/2024 12:19 AM [facility] Monocyte Absolute 0.76 0.30 - 0.90 x10(3)/mc L 10/06/2024 12:19 AM [facility] Eos % 1.3 % 10/06/2024 12:19 AM [facility] Eos Absolute 0.16 0.00 - 0.40 x10(3)/mc L 10/06/2024 12:19 AM [facility] Basophil % 0.5 % 10/06/2024 12:19 AM [facility] Baso Absolute 0.06 0.00 - 0.10 x10(3)/mc L 10/06/2024 12:19 AM [facility] Immature Gran % 1.2 % 12:19 AM [facility] Immature Gran Absolute 0.15(H) 0.00 - 0.04 x10(3)/mc L 10/06/2024 12:19 AM [facility] Blood VENOUS BLOOD SPECIMEN / Unknown Venipuncture / Unknown 10/06/2024 12:03 AM EST 10/06/2024 12:15 AM EST Hayley Torres MD HEMATOLOGY ORDERABLE S [facility] [place] [address] * Basic Metabolic Panel (10/06/2024 12:03 AM EST) Glucose 94 65 - 199 mg/dL 10/06/2024 12:44 AM [facility] Comment:Glucose Concentratio n >=200 mg/dL plus symptoms is consistent with Diabetes Mellitus. Blood Urea Nitrogen 17 10 - 20 mg/dL 10/06/2024 12:44 AM [facility] Creatinine 0.85 0.80 - 1.50 mg/dL 10/06/2024 12:44 AM [facility] Sodium 139 135 - 145 mMol/L 10/06/2024 12:44 AM [facility] Potassium 4.3 3.5 - 5.0 mMol/L 10/06/2024 12:44 AM [facility] Chloride 103 98 - 107 mMol/L 10/06/2024 12:44 AM [facility] Carbon Dioxide 22 22 - 31 mMol/L 10/06/2024 12:44 AM [facility] Anion Gap 14 5 - 15 mMol/L 10/06/2024 12:44 AM [facility] Calcium 8.8 8.5 - 10.5 mg/dL 10/06/2024 12:44 AM [facility] Est Glomerular Filtration Rate - Male 106 mL/min/1. 73 m?? 10/06/2024 12:44 AM [facility] Comment: This patient's estimated GFR [...] Torres MD CHEMISTRY ORDERABLES [facility] [place] [address] * Phosphorus (10/06/2024 12:03 AM EST) Phosphorus 4.3 2.5 - 4.5 mg/dL 10/06/2024 12:44 AM [facility] Blood VENOUS BLOOD SPECIMEN / Unknown Venipuncture / Unknown 10/06/2024 12:03 AM EST 10/06/2024 12:15 AM EST Hayley Torres MD CHEMISTRY ORDERABLES [facility] [place] [address] * Magnesium (10/06/2024 12:03 AM EST) Magnesium 0.83 0.69 - 1.07 mMol/L 10/06/2024 12:44 AM EST [facility] Blood VENOUS BLOOD SPECIMEN / Unknown Venipuncture / Unknown 10/06/2024 12:03 AM EST 10/06/2024 12:15 AM EST Hayley Torres MD CHEMISTRY ORDERABLES Performing Organization Address City/[facility]/ZIP Co de Phone Number [facility] [place] [address] * POC, GLUCOSE (10/06/2024 12:02 AM EST) Glucometer, POC 98 65 - 199 mg/dL 10/06/2024 12:02 AM EST [facility] Comment:Supplemental ranges: <140 mg/dL before meals <180 mg/dL all other times of the day. Blood CAPILLARY BLOOD / Unknown 10/06/2024 12:02 AM EST 10/06/2024 12:02 AM EST Hayley Torres MD POINT OF CARE TEST O RDERABLES Performing Organization Address City/[facility]/ZIP Co de Phone Number [facility] [place] [address] * POC, GLUCOSE (10/05/2024 7:22 PM EST) Glucometer, POC 186 65 - 199 mg/dL 10/05/2024 7:23 PM EST [facility] Comment:Supplemental ranges: <140 mg/dL before meals <180 mg/dL all other times of the day. Blood CAPILLARY BLOOD / Unknown 10/05/2024 7:22 PM EST 10/05/2024 7:23 PM EST Hayley Torres MD POINT OF CARE TEST O RDERABLES [facility] [place] [address] * POC, GLUCOSE (10/05/2024 5:35 PM EST) Glucometer, POC 177 65 - 199 mg/dL 10/05/2024 5:35 PM EST [facility] Comment:Supplemental ranges: <140 mg/dL before meals <180 mg/dL all other times of the day. Blood CAPILLARY BLOOD / Unknown 10/05/2024 5:35 PM EST 10/05/2024 5:35 PM EST Hayley Torres MD POINT OF CARE TEST O GILDA [facility] [place] [address] * POC, GLUCOSE (10/05/2024 3:57 PM EST) Glucometer, POC 141 65 - 199 mg/dL 10/05/2024 3:57 PM EST [facility] Comment:Supplemental ranges: <140 mg/dL before meals <180 mg/dL all other times of the day. Blood CAPILLARY BLOOD / Unknown 10/05/2024 3:57 PM EST 10/05/2024 3:57 PM EST Hayley Torres MD POINT OF CARE TEST O GILDA [facility] [place] [place] [address] * POC, GLUCOSE (10/05/2024 11:50 AM EST) Glucometer, POC 134 65 - 199 mg/dL 10/05/2024 11:50 AM EST [facility] Comment:Supplemental ranges: <140 mg/dL before meals <180 mg/dL all other times of the day. Blood CAPILLARY BLOOD / Unknown 10/05/2024 11:50 AM EST 10/05/2024 11:50 AM EST Hayley Torres MD POINT OF CARE TEST O RDERAHERNANDEZ Performing Organization Address [facility] Co de Phone Number [facility] [place] [address] * POC, GLUCOSE (10/05/2024 7:51 AM EST) Glucometer, POC 114 65 - 199 mg/dL 10/05/2024 7:51 AM EST [facility] Comment:Supplemental ranges: <140 mg/dL before meals <180 mg/dL all other times of the day. Blood CAPILLARY BLOOD / Unknown 10/05/2024 7:51 AM EST 10/05/2024 7:51 AM EST Hayley Torres MD POINT OF CARE TEST O GILDA Performing Organization Address [facility] de Phone Number [facility] [place] [address] * POC, GLUCOSE (10/05/2024 4:18 AM EST) Glucometer, POC 147 65 - 199 mg/dL 10/05/2024 4:18 AM EST [facility] Comment:Supplemental ranges: <140 mg/dL before meals <180 mg/dL all other times of the day. Blood CAPILLARY BLOOD / Unknown 10/05/2024 4:18 AM EST 10/05/2024 4:18 AM EST Hayley Torres MD POINT OF CARE TEST O GILDA Performing Organization Address [facility] Co de Phone Number [facility] [place] [address] * (ABNORMAL) CBC (with Diff) (10/04/2024 11:50 PM EST) White Blood Cell 12.73(H) 4.00 - 9.50 x10(3)/mc L 10/05/2024 12:10 AM EST [facility] Red Blood Cell 3.45(L) 4.58 - 5.54 x10(6)/mc L 10/05/2024 12:10 AM [facility] Hemoglobin 9.8(L) 13.7 - 16.5 g/dL 10/05/2024 12:10 AM [facility] Hematocrit 30.6(L) 40.5 - 48.5 % 10/05/2024 12:10 AM [facility] Mean Cell Volume 88.7 82.9 - 93.1 fL 10/05/2024 12:10 AM [facility] Mean Cell Hemoglobin 28.4 27.5 - 32.1 pg 10/05/2024 12:10 AM [facility] Mean Cell Hemoglobin Concentration 32.0 32.0 - 35.7 g/dL 10/05/2024 12:10 AM [facility] Platelet 709(H) 145 - 357 x10(3)/mc L 10/05/2024 12:10 AM [facility] Mean Platelet Volume 8.9 7.6 - 12.9 fL 10/05/2024 12:10 AM [facility] RDW Standard Deviation 45.4(H) 36.0 - 45.0 fL 10/05/2024 12:10 AM [facility] RDW coefficient of variation 14.3(H) 11.4 - 13.8 % 10/05/2024 12:10 AM [facility] NRBC% auto 0.0 % 10/05/2024 12:10 AM [facility] NRBC Absolute <0.01 <0.01 x10(3)/mc L 10/05/2024 12:10 AM [facility] Neutrophil % 68.5 % 10/05/2024 12:10 AM [facility] Neutrophil Absolute (ANC) - Automated 8.72(H) 1.70 - 6.10 x10(3)/mc L 10/05/2024 12:10 AM [facility] Lymph % 21.3 % 10/05/2024 12:10 AM [facility] Lymph Absolute 2.71 0.90 - 3.20 x10(3)/mc L 10/05/2024 12:10 AM EST [facility] Monocyte % 5.5 % 10/05/2024 12:10 AM [facility] Monocyte Absolute 0.70 0.30 - 0.90 x10(3)/mc L 10/05/2024 12:10 AM [facility] Eos % 1.6 % 10/05/2024 12:10 AM [facility] Eos Absolute 0.20 0.00 - 0.40 x10(3)/mc L 10/05/2024 12:10 AM [facility] Basophil % 0.5 % 10/05/2024 12:10 AM [facility] Baso Absolute 0.07 0.00 - 0.10 x10(3)/mc L 10/05/2024 12:10 AM [facility] Immature Gran % 2.6 % 12:10 AM [facility] Immature Gran Absolute 0.33(H) 0.00 - 0.04 x10(3)/mc L 10/05/2024 12:10 AM [facility] Blood VENOUS BLOOD SPECIMEN / Unknown Venipuncture / Unknown 10/04/2024 11:50 PM EST 10/05/2024 12:03 AM EST Hayley Torres MD HEMATOLOGY ORDERABLE S [facility] [place] [address] * (ABNORMAL) Basic Metabolic Panel (10/04/2024 11:50 PM EST) Glucose 104 65 - 199 mg/dL 10/05/2024 12:35 AM [facility] Comment:Glucose Concentratio n >=200 mg/dL plus symptoms is consistent with Diabetes Mellitus. Blood Urea Nitrogen 13 10 - 20 mg/dL 10/05/2024 12:35 AM [facility] Creatinine 0.55(L) 0.80 - 1.50 mg/dL 10/05/2024 12:35 AM [facility] Sodium 140 135 - 145 mMol/L 10/05/2024 12:35 AM [facility] Potassium 3.9 3.5 - 5.0 mMol/L 10/05/2024 12:35 AM [facility] Chloride 105 98 - 107 mMol/L 10/05/2024 12:35 AM [facility] Carbon Dioxide 24 22 - 31 mMol/L 10/05/2024 12:35 AM [facility] Anion Gap 11 5 - 15 mMol/L 10/05/2024 12:35 AM [facility] Calcium 9.0 8.5 - 10.5 mg/dL 10/05/2024 12:35 AM [facility] Est Glomerular Filtration Rate - Male 121 mL/min/1. 73 m?? 10/05/2024 12:35 AM [facility] Comment: This patient's estimated GFR [...] Torres MD CHEMISTRY ORDERABLES [facility] [place] [place] [address] * Phosphorus (10/04/2024 11:50 PM EST) Phosphorus 4.2 2.5 - 4.5 mg/dL 10/05/2024 12:35 AM EST [facility] Blood VENOUS BLOOD SPECIMEN / Unknown Venipuncture / Unknown 10/04/2024 11:50 PM EST 10/05/2024 12:03 AM EST Hayley Torres MD CHEMISTRY ORDERABLES Performing Organization Address City/[facility]/ZIP Co de Phone Number [facility] [place] [address] * Magnesium (10/04/2024 11:50 PM EST) Magnesium 0.89 0.69 - 1.07 mMol/L 10/05/2024 12:35 AM EST [facility] Blood VENOUS BLOOD SPECIMEN / Unknown Venipuncture / Unknown 10/04/2024 11:50 PM EST 10/05/2024 12:03 AM EST Hayley Torres MD CHEMISTRY ORDERABLES Performing Organization Address City/[facility]/ZIP Co de Phone Number [facility] [place] [address] * POC, GLUCOSE (10/04/2024 11:36 PM EST) Glucometer, POC 121 65 - 199 mg/dL 10/04/2024 11:36 PM EST [facility] Comment:Supplemental ranges: <140 mg/dL before meals <180 mg/dL all other times of the day. Blood CAPILLARY BLOOD / Unknown 10/04/2024 11:36 PM EST 10/04/2024 11:36 PM EST Hayley Torres MD POINT OF CARE TEST O RDERABLES Performing Organization Address City/[facility]/ZIP Co de Phone Number [facility] [place] [address] * POC, GLUCOSE (10/04/2024 7:32 PM EST) Glucometer, POC 163 65 - 199 mg/dL 10/04/2024 7:32 PM EST [facility] Comment:Supplemental ranges: <140 mg/dL before meals <180 mg/dL all other times of the day. Blood CAPILLARY BLOOD / Unknown 10/04/2024 7:32 PM EST 10/04/2024 7:32 PM EST Hayley Torres MD POINT OF CARE TEST O RDERABLES Performing Organization Address [facility] Co de Phone Number [facility] [place] [address] * EKG 12 Lead (10/04/2024 7:14 PM EST) Ventricular rate 81 BPM MUSE SYSTEM Atrial Rate 81 BPM MUSE SYSTEM P-R Interval 174 ms MUSE SYSTEM QRS Duration 112 ms MUSE SYSTEM Q-T Interval 422 ms MUSE SYSTEM QTC Calculated (Bezet) 490 ms MUSE SYSTEM Calculated P [place] 34 degrees MUSE SYSTEM Calculated R [place] 11 degrees MUSE SYSTEM Calculated T [place] 59 degrees MUSE SYSTEM INTERPRETATION Normal sinus rhythm Cannot rule out Inferior infarct , age undetermined Nonspecific T wave abnormality Borderline ECG When compared with ECG of 29-MAY-2024 14:51, Nonspecific T wave abnormality now evident in Lateral leads Confirmed by MD Robert, Deandre Guadarrama ([id number]) on 10/05/2024 3:35:42 PM MUSE SYSTEM 10/04/2024 7:14 PM EST 10/05/2024 3:35 PM EST Hayley Torres MD ECG ORDERABLES Performing Organization Address [facility] Co de Phone Number MUSE SYSTEM [...] TEST O RDERABLES Performing Organization Address City/[facility]/ZIP Co de Phone Number [facility] [place] [address] * POC, GLUCOSE (10/04/2024 4:49 PM EST) Glucometer, POC 70 65 - 199 mg/dL 10/04/2024 4:50 PM EST [facility] Comment:Supplemental ranges: <140 mg/dL before meals <180 mg/dL all other times of the day. Blood CAPILLARY BLOOD / Unknown 10/04/2024 4:49 PM EST 10/04/2024 4:50 PM EST Hayley Torres MD POINT OF CARE TEST O GILDA Performing Organization Address [facility] Co de Phone Number [facility] [place] [address] * POC, GLUCOSE (10/04/2024 11:49 AM EST) Glucometer, POC 93 65 - 199 mg/dL 10/04/2024 11:49 AM EST [facility] Comment:Supplemental ranges: <140 mg/dL before meals <180 mg/dL all other times of the day. Blood CAPILLARY BLOOD / Unknown 10/04/2024 11:49 AM EST 10/04/2024 11:49 AM EST Hayley Torres MD POINT OF CARE TEST O GILDA Performing Organization Address City/[facility] Co de Phone Number [facility] [place] [address] * Vancomycin, trough (10/04/2024 7:53 AM EST) Vancomycin, Trough 19.8 10.0 - 20.0 mg/L 10/04/2024 9:16 AM EST [facility] Comment: Varies according to infection source. Blood VENOUS BLOOD SPECIMEN / Unknown Venipuncture / Unknown 10/04/2024 7:53 AM EST 10/04/2024 8:11 AM EST Hayley Torres MD CHEMISTRY ORDERABLES Performing Organization Address [facility] Co de Phone Number [facility] [place] [address] * POC, GLUCOSE (10/04/2024 7:51 AM EST) Glucometer, POC 105 65 - 199 mg/dL 10/04/2024 7:52 AM EST [facility] Comment:Supplemental ranges: <140 mg/dL before meals <180 mg/dL all other times of the day. Blood CAPILLARY BLOOD / Unknown 10/04/2024 7:51 AM EST 10/04/2024 7:52 AM EST Hayley Torres MD POINT OF CARE TEST O RDERABLES Performing Organization Address [facility] de Phone Number [facility] [place] [address] * POC, GLUCOSE (10/04/2024 3:53 AM EST) Glucometer, POC 90 65 - 199 mg/dL 10/04/2024 3:53 AM EST [facility] Comment:Supplemental ranges: <140 mg/dL before meals <180 mg/dL all other times of the day. Blood CAPILLARY BLOOD / Unknown 10/04/2024 3:53 AM EST 10/04/2024 3:53 AM EST Hayley Torres MD POINT OF CARE TEST O GILDA Performing Organization Address [facility] Co de Phone Number [facility] [place] [address] * (ABNORMAL) CBC (with Diff) (10/04/2024 12:08 AM EST) White Blood Cell 12.58(H) 4.00 - 9.50 x10(3)/mc L 10/04/2024 12:51 AM [facility] Red Blood Cell 3.28(L) 4.58 - 5.54 x10(6)/mc L 10/04/2024 12:51 AM [facility] Hemoglobin 9.4(L) 13.7 - 16.5 g/dL 10/04/2024 12:51 AM [facility] Hematocrit 28.8(L) 40.5 - 48.5 % 10/04/2024 12:51 AM [facility] Mean Cell Volume 87.8 82.9 - 93.1 fL 10/04/2024 12:51 AM [facility] Mean Cell Hemoglobin 28.7 27.5 - 32.1 pg 10/04/2024 12:51 AM [facility] Mean Cell Hemoglobin Concentration 32.6 32.0 - 35.7 g/dL 10/04/2024 12:51 AM [facility] Platelet 670(H) 145 - 357 x10(3)/mc L 10/04/2024 12:51 AM [facility] Mean Platelet Volume 9.1 7.6 - 12.9 fL 10/04/2024 12:51 AM [facility] RDW Standard Deviation 44.8 36.0 - 45.0 fL 10/04/2024 12:51 AM [facility] RDW coefficient of variation 13.9(H) 11.4 - 13.8 % 10/04/2024 12:51 AM [facility] NRBC% auto 0.0 % 10/04/2024 12:51 AM [facility] NRBC Absolute <0.01 <0.01 x10(3)/mc L 10/04/2024 12:51 AM [facility] Neutrophil % 60.3 % 10/04/2024 12:51 AM [facility] Neutrophil Absolute (ANC) - Automated 7.57(H) 1.70 - 6.10 x10(3)/mc L 10/04/2024 12:51 AM [facility] Lymph % 27.4 % 10/04/2024 12:51 AM [facility] Lymph Absolute 3.45(H) 0.90 - 3.20 x10(3)/mc L 10/04/2024 12:51 AM [facility] Monocyte % 5.4 % 10/04/2024 12:51 AM [facility] Monocyte Absolute 0.68 0.30 - 0.90 x10(3)/mc L 10/04/2024 12:51 AM [facility] Eos % 1.5 % 10/04/2024 12:51 AM [facility] Eos Absolute 0.19 0.00 - 0.40 x10(3)/mc L 10/04/2024 12:51 AM [facility] Basophil % 0.6 % 10/04/2024 12:51 AM [facility] Baso Absolute 0.08 0.00 - 0.10 x10(3)/mc L 10/04/2024 12:51 AM [facility] Immature Gran % 4.8 % 12:51 AM [facility] Immature Gran Absolute 0.61(H) 0.00 - 0.04 x10(3)/mc L 10/04/2024 12:51 AM [facility] Blood VENOUS BLOOD SPECIMEN / Unknown Venipuncture / Unknown 10/04/2024 12:08 AM EST 10/04/2024 12:15 AM EST Hayley Torres MD HEMATOLOGY ORDERABLE S [facility] [place] [address] * (ABNORMAL) Basic Metabolic Panel (10/04/2024 12:08 AM EST) Glucose 135 65 - 199 mg/dL 10/04/2024 12:53 AM [facility] Comment:Glucose Concentratio n >=200 mg/dL plus symptoms is consistent with Diabetes Mellitus. Blood Urea Nitrogen 19 10 - 20 mg/dL 10/04/2024 12:53 AM [facility] Creatinine 0.56(L) 0.80 - 1.50 mg/dL 10/04/2024 12:53 AM [facility] Sodium 138 135 - 145 mMol/L 10/04/2024 12:53 AM [facility] Potassium 4.4 3.5 - 5.0 mMol/L 10/04/2024 12:53 AM [facility] Chloride 105 98 - 107 mMol/L 10/04/2024 12:53 AM [facility] Carbon Dioxide 24 22 - 31 mMol/L 10/04/2024 12:53 AM [facility] Anion Gap 9 5 - 15 mMol/L 10/04/2024 12:53 AM [facility] Calcium 8.7 8.5 - 10.5 mg/dL 10/04/2024 12:53 AM [facility] Est Glomerular Filtration Rate - Male 120 mL/min/1. 73 m?? 10/04/2024 12:53 AM [facility] Comment: This patient's estimated GFR [...] Torres MD CHEMISTRY ORDERABLES [facility] [place] [id number] * Phosphorus (10/04/2024 12:08 AM EST) Phosphorus 3.7 2.5 - 4.5 mg/dL 10/04/2024 12:53 AM EST [facility] Blood VENOUS BLOOD SPECIMEN / Unknown Venipuncture / Unknown 10/04/2024 12:08 AM EST 10/04/2024 12:15 AM EST Hayley Torres MD CHEMISTRY ORDERABLES Performing Organization Address City/[facility]/ZIP Co de Phone Number [facility] [place] [address] * Magnesium (10/04/2024 12:08 AM EST) Magnesium 0.89 0.69 - 1.07 mMol/L 10/04/2024 12:53 AM EST [facility] Blood VENOUS BLOOD SPECIMEN / Unknown Venipuncture / Unknown 10/04/2024 12:08 AM EST 10/04/2024 12:15 AM EST Hayley Torres MD CHEMISTRY ORDERABLES Performing Organization Address [facility] Co de Phone Number [facility] [place] [address] * POC, GLUCOSE (10/04/2024 12:01 AM EST) Glucometer, POC 132 65 - 199 mg/dL 10/04/2024 12:02 AM EST [facility] Comment:Supplemental ranges: <140 mg/dL before meals <180 mg/dL all other times of the day. Blood CAPILLARY BLOOD / Unknown 10/04/2024 12:01 AM EST 10/04/2024 12:02 AM EST Hayley Torres MD POINT OF CARE TEST O RDERABLES Performing Organization Address City/[facility]/ZIP Co de Phone Number [facility] [place] [address] * POC, GLUCOSE (10/03/2024 7:56 PM EST) Glucometer, POC 123 65 - 199 mg/dL 10/03/2024 7:56 PM EST [facility] Comment:Supplemental ranges: <140 mg/dL before meals <180 mg/dL all other times of the day. Blood CAPILLARY BLOOD / Unknown 10/03/2024 7:56 PM EST 10/03/2024 7:57 PM EST Halyey Torres MD POINT OF CARE TEST O RDERAHERNANDEZ Performing Organization Address [facility] Co de Phone Number [facility] [place] [address] * POC, GLUCOSE (10/03/2024 5:29 PM EST) Glucometer, POC 182 65 - 199 mg/dL 10/03/2024 5:30 PM EST [facility] Comment:Supplemental ranges: <140 mg/dL before meals <180 mg/dL all other times of the day. Blood CAPILLARY BLOOD / Unknown 10/03/2024 5:29 PM EST 10/03/2024 5:30 PM EST Hayley Torres MD POINT OF CARE TEST O GILDA Performing Organization Address [facility] Co de Phone Number [facility] [place] [address] * POC, GLUCOSE (10/03/2024 12:54 PM EST) Glucometer, POC 128 65 - 199 mg/dL 10/03/2024 12:54 PM EST [facility] Comment:Supplemental ranges: <140 mg/dL before meals <180 mg/dL all other times of the day. Blood CAPILLARY BLOOD / Unknown 10/03/2024 12:54 PM EST 10/03/2024 12:54 PM EST Hayley Torres MD POINT OF CARE TEST O DIMITRIERAHERNANDEZ [facility] [place] [address] * POC, GLUCOSE (10/03/2024 7:59 AM EST) Glucometer, POC 115 65 - 199 mg/dL 10/03/2024 7:59 AM EST [facility] Comment:Supplemental ranges: <140 mg/dL before meals <180 mg/dL all other times of the day. Blood CAPILLARY BLOOD / Unknown 10/03/2024 7:59 AM EST 10/03/2024 7:59 AM EST Hayley Torres MD POINT OF CARE TEST O GILDA Performing Organization Address [facility] Co de Phone Number [facility] [place] [address] * POC, GLUCOSE (10/03/2024 5:32 AM EST) Glucometer, POC 119 65 - 199 mg/dL 10/03/2024 5:32 AM EST [facility] Comment:Supplemental ranges: <140 mg/dL before meals <180 mg/dL all other times of the day. Blood CAPILLARY BLOOD / Unknown 10/03/2024 5:32 AM EST 10/03/2024 5:32 AM EST Hayley Torres MD POINT OF CARE TEST O GILDA Performing Organization Address City/[facility] Co de Phone Number [facility] [place] [address] * POC, GLUCOSE (10/03/2024 4:16 AM EST) Glucometer, POC 152 65 - 199 mg/dL 10/03/2024 4:17 AM EST [facility] Comment:Supplemental ranges: <140 mg/dL before meals <180 mg/dL all other times of the day. Blood CAPILLARY BLOOD / Unknown 10/03/2024 4:16 AM EST 10/03/2024 4:17 AM EST Hayley Torres MD POINT OF CARE TEST O GILDA [facility] [place] [address] * (ABNORMAL) POC, GLUCOSE (10/03/2024 2:02 AM EST) Glucometer, POC 225(H) 65 - 199 mg/dL 10/03/2024 2:02 AM EST [facility] Comment:Supplemental ranges: <140 mg/dL before meals <180 mg/dL all other times of the day. Blood CAPILLARY BLOOD / Unknown 10/03/2024 2:02 AM EST 10/03/2024 2:02 AM EST Hayley Torres MD POINT OF CARE TEST O GILDA [facility] [place] [address] * (ABNORMAL) CBC (with Diff) (10/03/2024 12:27 AM EST) [facility] White Blood Cell 15.33(H) 4.00 - 9.50 x10(3)/mc L 10/03/2024 12:51 AM [facility] Red Blood Cell 3.59(L) 4.58 - 5.54 x10(6)/mc L 10/03/2024 12:51 AM [facility] Hemoglobin 10.4(L) 13.7 - 16.5 g/dL 10/03/2024 12:51 AM [facility] Hematocrit 31.2(L) 40.5 - 48.5 % 10/03/2024 12:51 AM [facility] Mean Cell Volume 86.9 82.9 - 93.1 fL 10/03/2024 12:51 AM [facility] Mean Cell Hemoglobin 29.0 27.5 - 32.1 pg 10/03/2024 12:51 AM [facility] Mean Cell Hemoglobin Concentration 33.3 32.0 - 35.7 g/dL 10/03/2024 12:51 AM [facility] Platelet 693(H) 145 - 357 x10(3)/mc L 10/03/2024 12:51 AM [facility] Mean Platelet Volume 9.2 7.6 - 12.9 fL 10/03/2024 12:51 AM [facility] RDW Standard Deviation 42.4 36.0 - 45.0 fL 10/03/2024 12:51 AM [facility] RDW coefficient of variation 13.6 11.4 - 13.8 % 10/03/2024 12:51 AM [facility] NRBC% auto 0.0 % 10/03/2024 12:51 AM [facility] NRBC Absolute <0.01 <0.01 x10(3)/mc L 10/03/2024 12:51 AM [facility] Neutrophil % 77.1 % 10/03/2024 12:51 AM [facility] Neutrophil Absolute (ANC) - Automated 11.83(H) 1.70 - 6.10 x10(3)/mc L 10/03/2024 12:51 AM [facility] Lymph % 13.4 % 10/03/2024 12:51 AM [facility] Lymph Absolute 2.05 0.90 - 3.20 x10(3)/mc L 10/03/2024 12:51 AM [facility] Monocyte % 2.9 % 10/03/2024 12:51 AM [facility] Monocyte Absolute 0.45 0.30 - 0.90 x10(3)/mc L 10/03/2024 12:51 AM [facility] Eos % 0.5 % 10/03/2024 12:51 AM [facility] Eos Absolute 0.07 0.00 - 0.40 x10(3)/mc L 10/03/2024 12:51 AM [facility] Basophil % 0.4 % 10/03/2024 12:51 AM [facility] Baso Absolute 0.06 0.00 - 0.10 x10(3)/mc L 10/03/2024 12:51 AM [facility] Immature Gran % 5.7 % 12:51 AM [facility] Immature Gran Absolute 0.87(H) 0.00 - 0.04 x10(3)/mc L 10/03/2024 12:51 AM [facility] Blood VENOUS BLOOD SPECIMEN / Unknown Venipuncture / Unknown 10/03/2024 12:27 AM EST 10/03/2024 12:47 AM EST Hayley Torres MD HEMATOLOGY ORDERABLE S Performing Organization Address City/State/[facility] Co de Phone Number [facility] [place] [address] * (ABNORMAL) Basic Metabolic Panel (10/03/2024 12:27 AM EST) Glucose 208(H) 65 - 199 mg/dL 10/03/2024 1:14 AM [facility] Comment:Glucose Concentratio n >=200 mg/dL plus symptoms is consistent with Diabetes Mellitus. Blood Urea Nitrogen 15 10 - 20 mg/dL 10/03/2024 1:14 AM [facility] Creatinine 0.51(L) 0.80 - 1.50 mg/dL 10/03/2024 1:14 AM [facility] Sodium 136 135 - 145 mMol/L 10/03/2024 1:14 AM [facility] Potassium 4.1 3.5 - 5.0 mMol/L 10/03/2024 1:14 AM [facility] Chloride 103 98 - 107 mMol/L 10/03/2024 1:14 AM [facility] Carbon Dioxide 20(L) 22 - 31 mMol/L 10/03/2024 1:14 AM [facility] Anion Gap 13 5 - [...] Torres MD CHEMISTRY ORDERABLES [facility] [place] [address] * Phosphorus (10/03/2024 12:27 AM EST) Phosphorus 3.5 2.5 - 4.5 mg/dL 10/03/2024 1:14 AM EST [facility] Blood VENOUS BLOOD SPECIMEN / Unknown Venipuncture / Unknown 10/03/2024 12:27 AM EST 10/03/2024 12:47 AM EST Hayley Torres MD CHEMISTRY ORDERABLES [facility] [place] [address] * Magnesium (10/03/2024 12:27 AM EST) Magnesium 0.83 0.69 - 1.07 mMol/L 10/03/2024 1:14 AM EST [facility] Blood VENOUS BLOOD SPECIMEN / Unknown Venipuncture / Unknown 10/03/2024 12:27 AM EST 10/03/2024 12:47 AM EST Hayley Torres MD CHEMISTRY ORDERABLES [facility] [place] [address] * (ABNORMAL) POC, GLUCOSE (10/03/2024 12:13 AM EST) Glucometer, POC 255(H) 65 - 199 mg/dL 10/03/2024 12:14 AM EST [facility] Comment:Supplemental ranges: <140 mg/dL before meals <180 mg/dL all other times of the day. Blood CAPILLARY BLOOD / Unknown 10/03/2024 12:13 AM EST 10/03/2024 12:14 AM EST Hayley Torres MD POINT OF CARE TEST O RDERABLES Performing Organization Address City/[facility]/ZIP Co de Phone Number [facility] [place] [address] * POC, GLUCOSE (10/02/2024 8:17 PM EST) Glucometer, POC 177 65 - 199 mg/dL 10/02/2024 8:17 PM EST [facility] Comment:Supplemental ranges: <140 mg/dL before meals <180 mg/dL all other times of the day. Blood CAPILLARY BLOOD / Unknown 10/02/2024 8:17 PM EST 10/02/2024 8:17 PM EST Hayley Torres MD POINT OF CARE TEST O RDERABLES [facility] [place] [place] [address] * POC, GLUCOSE (10/02/2024 6:22 PM EST) Glucometer, POC 172 65 - 199 mg/dL 10/02/2024 6:22 PM EST [facility] Comment:Supplemental ranges: <140 mg/dL before meals <180 mg/dL all other times of the day. Blood CAPILLARY BLOOD / Unknown 10/02/2024 6:22 PM EST 10/02/2024 6:22 PM EST Hayley Torres MD POINT OF CARE TEST O GILDA Performing Organization Address City/[facility]/ZIP Co de Phone Number [facility] [place] [address] * POC, GLUCOSE (10/02/2024 5:01 PM EST) Glucometer, POC 104 65 - 199 mg/dL 10/02/2024 5:01 PM EST [facility] Comment:Supplemental ranges: <140 mg/dL before meals <180 mg/dL all other times of the day. Blood CAPILLARY BLOOD / Unknown 10/02/2024 5:01 PM EST 10/02/2024 5:01 PM EST Hayley Torres MD POINT OF CARE TEST O GILDA Performing Organization Address City/[facility]/ZIP Co de Phone Number [facility] [place] [address] * POC, GLUCOSE (10/02/2024 3:05 PM EST) Glucometer, POC 113 65 - 199 mg/dL 10/02/2024 3:06 PM EST [facility] Comment:Supplemental ranges: <140 mg/dL before meals <180 mg/dL all other times of the day. Blood CAPILLARY BLOOD / Unknown 10/02/2024 3:05 PM EST 10/02/2024 3:06 PM EST Hayley Torres MD POINT OF CARE TEST O GILDA [facility] [place] [address] * POC, GLUCOSE (10/02/2024 11:12 AM EST) Glucometer, POC 146 65 - 199 mg/dL 10/02/2024 11:12 AM EST [facility] Comment:Supplemental ranges: <140 mg/dL before meals <180 mg/dL all other times of the day. Blood CAPILLARY BLOOD / Unknown 10/02/2024 11:12 AM EST 10/02/2024 11:12 AM EST Hayley Torres MD POINT OF CARE TEST O GILDA [facility] [place] [address] * POC, GLUCOSE (10/02/2024 8:12 AM EST) Glucometer, POC 131 65 - 199 mg/dL 10/02/2024 8:12 AM EST [facility] Comment:Supplemental ranges: <140 mg/dL before meals <180 mg/dL all other times of the day. Blood CAPILLARY BLOOD / Unknown 10/02/2024 8:12 AM EST 10/02/2024 8:12 AM EST Hayley Torres MD POINT OF CARE TEST O GILDA [facility] [place] [address] * POC, GLUCOSE (10/02/2024 4:19 AM EST) Glucometer, POC 131 65 - 199 mg/dL 10/02/2024 4:19 AM EST [facility] Comment:Supplemental ranges: <140 mg/dL before meals <180 mg/dL all other times of the day. Blood CAPILLARY BLOOD / Unknown 10/02/2024 4:19 AM EST 10/02/2024 4:19 AM EST Hayley Torres MD POINT OF CARE TEST O RDERABLES [facility] [place] [place] [address] * Phosphorus (10/02/2024 12:41 AM EST) Phosphorus 4.1 2.5 - 4.5 mg/dL 10/02/2024 1:21 AM EST [facility] Blood VENOUS BLOOD SPECIMEN / Unknown Venipuncture / Unknown 10/02/2024 12:41 AM EST 10/02/2024 12:45 AM EST Hayley Torres MD CHEMISTRY ORDERABLES Performing Organization Address City/[facility]/ZIP Co de Phone Number [facility] [place] [address] * Magnesium (10/02/2024 12:41 AM EST) Pathologist [facility] Magnesium 0.85 0.69 - 1.07 mMol/L 10/02/2024 1:21 AM EST [facility] Blood VENOUS BLOOD SPECIMEN / Unknown Venipuncture / Unknown 10/02/2024 12:41 AM EST 10/02/2024 12:45 AM EST Hayley Torres MD CHEMISTRY ORDERABLES [facility] [place] [address] * (ABNORMAL) Basic Metabolic Panel (10/02/2024 12:41 [...] 135 - 145 mMol/L 10/02/2024 1:21 AM [facility] Potassium 3.9 3.5 - 5.0 mMol/L 10/02/2024 1:21 AM [facility] Chloride 105 98 - 107 mMol/L 10/02/2024 1:21 AM [facility] Carbon Dioxide 23 22 - 31 mMol/L 10/02/2024 1:21 AM [facility] Anion Gap 10 5 - 15 mMol/L 10/02/2024 1:21 AM [facility] Calcium 8.2(L) 8.5 - 10.5 mg/dL 10/02/2024 1:21 AM [facility] Est Glomerular Filtration Rate - Male 125 mL/min/1. 73 m?? 10/02/2024 1:21 AM [facility] Comment: This patient's estimated GFR [...] Torres MD CHEMISTRY ORDERABLES [facility] [place] [place] [address] * (ABNORMAL) CBC (with Diff) (10/02/2024 12:41 AM EST) White Blood Cell 10.93(H) 4.00 - 9.50 x10(3)/mc L 10/02/2024 1:04 AM [facility] Red Blood Cell 3.30(L) 4.58 - 5.54 x10(6)/mc L 10/02/2024 1:04 AM [facility] Hemoglobin 9.6(L) 13.7 - 16.5 g/dL 10/02/2024 1:04 AM [facility] Hematocrit 28.6(L) 40.5 - 48.5 % 10/02/2024 1:04 AM [facility] Mean Cell Volume 86.7 82.9 - 93.1 fL 10/02/2024 1:04 AM [facility] Mean Cell Hemoglobin 29.1 27.5 - 32.1 pg 10/02/2024 1:04 AM [facility] Mean Cell Hemoglobin Concentration 33.6 32.0 - 35.7 g/dL 10/02/2024 1:04 AM [facility] Platelet 546(H) 145 - 357 x10(3)/mc L 10/02/2024 1:04 AM [facility] Mean Platelet Volume 9.0 7.6 - 12.9 fL 10/02/2024 1:04 AM [facility] RDW Standard Deviation 42.7 36.0 - 45.0 fL 10/02/2024 1:04 AM [facility] RDW coefficient of variation 13.3 11.4 - 13.8 % 10/02/2024 1:04 AM [facility] NRBC% auto 0.0 % 10/02/2024 1:04 AM [facility] NRBC Absolute <0.01 <0.01 x10(3)/mc L 10/02/2024 1:04 AM [facility] Neutrophil % 58.4 % 10/02/2024 1:04 AM [facility] Neutrophil Absolute (ANC) - Automated 6.38(H) 1.70 - 6.10 x10(3)/mc L 10/02/2024 1:04 AM [facility] Lymph % 23.9 % 10/02/2024 1:04 AM [facility] Lymph Absolute 2.61 0.90 - 3.20 x10(3)/mc L 10/02/2024 1:04 AM [facility] Monocyte % 5.6 % 10/02/2024 1:04 AM [facility] Monocyte Absolute 0.61 0.30 - 0.90 x10(3)/mc L 10/02/2024 1:04 AM [facility] Eos % 1.6 % 10/02/2024 1:04 AM [facility] Eos Absolute 0.18 0.00 - 0.40 x10(3)/mc L 10/02/2024 1:04 AM [facility] Basophil % 0.8 % 10/02/2024 1:04 AM [facility] Baso Absolute 0.09 0.00 - 0.10 x10(3)/mc L 10/02/2024 1:04 AM [facility] Immature Gran % 9.7 % 1:04 AM [facility] Immature Gran Absolute 1.06(H) 0.00 - 0.04 x10(3)/mc L 10/02/2024 1:04 AM [facility] Blood VENOUS BLOOD SPECIMEN / Unknown Venipuncture / Unknown 10/02/2024 12:41 AM EST 10/02/2024 12:45 AM EST Hayley Torres MD HEMATOLOGY ORDERABLE S [facility] [place] [address] * POC, GLUCOSE (10/02/2024 12:40 AM EST) [facility] Signature Glucometer, POC 116 65 - 199 mg/dL 10/02/2024 12:41 AM [facility] Comment:Supplemental ranges: <140 mg/dL before meals <180 mg/dL all other times of the day. Blood CAPILLARY BLOOD / Unknown 10/02/2024 12:40 AM EST 10/02/2024 12:41 AM EST Hayley Torres MD POINT OF CARE TEST O GILDA Performing Organization Address City/[facility]/ZIP Co de Phone Number [facility] [place] [address] * POC, GLUCOSE (10/01/2024 8:11 PM EST) Glucometer, POC 123 65 - 199 mg/dL 10/01/2024 8:11 PM EST [facility] Comment:Supplemental ranges: <140 mg/dL before meals <180 mg/dL all other times of the day. Blood CAPILLARY BLOOD / Unknown 10/01/2024 8:11 PM EST 10/01/2024 8:11 PM EST Hayley Torres MD POINT OF CARE TEST O GILDA Performing Organization Address [facility] Co de Phone Number [facility] [place] [address] * POC, GLUCOSE (10/01/2024 6:00 PM EST) Glucometer, POC 112 65 - 199 mg/dL 10/01/2024 6:00 PM EST [facility] Comment:Supplemental ranges: <140 mg/dL before meals <180 mg/dL all other times of the day. Blood CAPILLARY BLOOD / Unknown 10/01/2024 6:00 PM EST 10/01/2024 6:00 PM EST Hayley Torres MD POINT OF CARE TEST O GILDA [facility] [place] [address] * POC, GLUCOSE (10/01/2024 3:53 PM EST) Glucometer, POC 97 65 - 199 mg/dL 10/01/2024 3:53 PM EST [facility] Comment:Supplemental ranges: <140 mg/dL before meals <180 mg/dL all other times of the day. Blood CAPILLARY BLOOD / Unknown 10/01/2024 3:53 PM EST 10/01/2024 3:53 PM EST Hayley Torres MD POINT OF CARE TEST O GILDA Performing Organization Address City/[facility] Co de Phone Number [facility] [place] [address] * POC, GLUCOSE (10/01/2024 2:25 PM EST) Glucometer, POC 117 65 - 199 mg/dL 10/01/2024 2:25 PM EST [facility] Comment:Supplemental ranges: <140 mg/dL before meals <180 mg/dL all other times of the day. Blood CAPILLARY BLOOD / Unknown 10/01/2024 2:25 PM EST 10/01/2024 2:25 PM EST Hayley Torres MD POINT OF CARE TEST O GILDA Performing Organization Address [facility] Co de Phone Number [facility] [place] [address] * POC, GLUCOSE (10/01/2024 11:43 AM EST) Glucometer, POC 174 65 - 199 mg/dL 10/01/2024 11:43 AM EST [facility] Comment:Supplemental ranges: <140 mg/dL before meals <180 mg/dL all other times of the day. Blood CAPILLARY BLOOD / Unknown 10/01/2024 11:43 AM EST 10/01/2024 11:43 AM EST Hayley Torres MD POINT OF CARE TEST O GILDA Performing Organization Address City/[facility] Co de Phone Number [facility] [place] [address] * POC, GLUCOSE (10/01/2024 9:43 AM EST) Glucometer, POC 191 65 - 199 mg/dL 10/01/2024 9:43 AM EST [facility] Comment:Supplemental ranges: <140 mg/dL before meals <180 mg/dL all other times of the day. Blood CAPILLARY BLOOD / Unknown 10/01/2024 9:43 AM EST 10/01/2024 9:43 AM EST Hayley Torres MD POINT OF CARE TEST O RDERAHERNANDEZ Performing Organization Address [facility] Co de Phone Number [facility] [place] [address] * POC, GLUCOSE (10/01/2024 7:48 AM EST) Glucometer, POC 151 65 - 199 mg/dL 10/01/2024 7:48 AM EST [facility] Comment:Supplemental ranges: <140 mg/dL before meals <180 mg/dL all other times of the day. Blood CAPILLARY BLOOD / Unknown 10/01/2024 7:48 AM EST 10/01/2024 7:48 AM EST Hayley Torres MD POINT OF CARE TEST O GILDA Performing Organization Address [facility] Co de Phone Number [facility] [place] [address] * POC, GLUCOSE (10/01/2024 4:25 AM EST) Glucometer, POC 133 65 - 199 mg/dL 10/01/2024 4:26 AM EST [facility] Comment:Supplemental ranges: <140 mg/dL before meals <180 mg/dL all other times of the day. Blood CAPILLARY BLOOD / Unknown 10/01/2024 4:25 AM EST 10/01/2024 4:26 AM EST Hayley Torres MD POINT OF CARE TEST O GILDA [facility] [place] [address] * Phosphorus (10/01/2024 2:02 AM EST) Pathologist [facility] Phosphorus 3.9 2.5 - 4.5 mg/dL 10/01/2024 7:16 AM EST [facility] Blood VENOUS BLOOD SPECIMEN / Unknown Venipuncture / Unknown 10/01/2024 2:02 AM EST 10/01/2024 2:10 AM EST Hayley Torres MD CHEMISTRY ORDERABLES Performing Organization Address City/[facility]/ZIP Co de Phone Number [facility] [place] [address] * (ABNORMAL) Scan, Peripheral Blood (10/01/2024 2:02 AM EST) [facility] RBC Morphology Abnormal 10/01/2024 2:55 AM EST [...] MD HEMATOLOGY ORDERABLE S [facility] [place] [address] * Magnesium (10/01/2024 2:02 AM EST) Pathologist [facility] Magnesium 0.79 0.69 - 1.07 mMol/L 10/01/2024 2:41 AM EST [facility] Blood VENOUS BLOOD SPECIMEN / Unknown Venipuncture / Unknown 10/01/2024 2:02 AM EST 10/01/2024 2:10 AM EST Hayley Torres MD CHEMISTRY ORDERABLES [facility] [place] [address] * (ABNORMAL) Basic Metabolic Panel (10/01/2024 2:02 AM EST) Glucose 122 65 - 199 mg/dL 10/01/2024 2:41 AM EST [facility] Comment:Glucose Concentratio n >=200 mg/dL plus symptoms is consistent with Diabetes Mellitus. Blood Urea Nitrogen 10 10 - 20 mg/dL 10/01/2024 2:41 AM [facility] Creatinine 0.47(L) 0.80 - 1.50 mg/dL 10/01/2024 2:41 AM [facility] Sodium 138 135 - 145 mMol/L 10/01/2024 2:41 AM [facility] Potassium 3.9 3.5 - 5.0 mMol/L 10/01/2024 2:41 AM [facility] Chloride 105 98 - 107 mMol/L 10/01/2024 2:41 AM [facility] Carbon Dioxide 24 22 - 31 mMol/L 10/01/2024 2:41 AM [facility] Anion Gap 9 5 - 15 mMol/L 10/01/2024 2:41 AM [facility] Calcium 8.1(L) 8.5 - 10.5 mg/dL 10/01/2024 2:41 AM [facility] Est Glomerular Filtration Rate - Male 127 mL/min/1. 73 m?? 10/01/2024 2:41 AM [facility] Comment: This patient's estimated GFR [...] Torres MD CHEMISTRY ORDERABLES [facility] [place] [address] * (ABNORMAL) CBC (with Diff) (10/01/2024 2:02 AM EST) White Blood Cell 10.15(H) 4.00 - 9.50 x10(3)/mc L 10/01/2024 2:55 AM [facility] Red Blood Cell 3.14(L) 4.58 - 5.54 x10(6)/mc L 10/01/2024 2:55 AM [facility] Hemoglobin 9.1(L) 13.7 - 16.5 g/dL 10/01/2024 2:55 AM [facility] Hematocrit 26.9(L) 40.5 - 48.5 % 10/01/2024 2:55 AM [facility] Mean Cell Volume 85.7 82.9 - 93.1 fL 10/01/2024 2:55 AM [facility] Mean Cell Hemoglobin 29.0 27.5 - 32.1 pg 10/01/2024 2:55 AM [facility] Mean Cell Hemoglobin Concentration 33.8 32.0 - 35.7 g/dL 10/01/2024 2:55 AM [facility] Platelet 444(H) 145 - 357 x10(3)/mc L 10/01/2024 2:55 AM [facility] Mean Platelet Volume 8.9 7.6 - 12.9 fL 10/01/2024 2:55 AM [facility] RDW Standard Deviation 41.2 36.0 - 45.0 fL 10/01/2024 2:55 AM [facility] RDW coefficient of variation 13.2 11.4 - 13.8 % 10/01/2024 2:55 AM [facility] NRBC% auto 0.0 % 10/01/2024 2:55 AM [facility] NRBC Absolute <0.01 <0.01 x10(3)/mc L 10/01/2024 2:55 AM [facility] Neutrophil % 59.5 % 10/01/2024 2:55 AM [facility] Comment:This is an appended report. These results have been appended to a previously preliminary verified report. Neutrophil Absolute (ANC) - Automated 6.05 1.70 - 6.10 x10(3)/mc L 10/01/2024 2:55 AM [facility] Comment:This is an appended report. These results have been appended to a previously preliminary verified report. Lymph % 22.3 % 10/01/2024 2:55 AM [facility] Comment:This is an appended report. These results have been appended to a previously preliminary verified report. Lymph Absolute 2.26 0.90 - 3.20 x10(3)/mc L 10/01/2024 2:55 AM [facility] Comment:This is an appended report. These results have been appended to a previously preliminary verified report. Monocyte % 7.4 % 10/01/2024 2:55 AM [facility] Comment:This is an appended report. These results have been appended to a previously preliminary verified report. Monocyte Absolute 0.75 0.30 - 0.90 x10(3)/mc L 10/01/2024 2:55 AM [facility] Comment:This is an appended report. These results have been appended to a previously preliminary verified report. Eos % 1.8 % 10/01/2024 2:55 AM [facility] Comment:This is an appended report. [...] MD HEMATOLOGY ORDERABLE S [facility] [place] [address] * POC, GLUCOSE (10/01/2024 12:32 AM EST) Glucometer, POC 179 65 - 199 mg/dL 10/01/2024 12:32 AM EST [facility] Comment:Supplemental ranges: <140 mg/dL before meals <180 mg/dL all other times of the day. Blood CAPILLARY BLOOD / Unknown 10/01/2024 12:32 AM EST 10/01/2024 12:32 AM EST Hayley Torres MD POINT OF CARE TEST O GILDA Performing Organization Address City/[facility] Co de Phone Number [facility] [place] [place] [address] * POC, GLUCOSE (09/30/2024 7:37 PM EST) Glucometer, POC 140 65 - 199 mg/dL 09/30/2024 7:38 PM EST [facility] Comment:Supplemental ranges: <140 mg/dL before meals <180 mg/dL all other times of the day. Blood CAPILLARY BLOOD / Unknown 09/30/2024 7:37 PM EST 09/30/2024 7:38 PM EST Hayley Torres MD POINT OF CARE TEST O GILDA Performing Organization Address [facility] Co de Phone Number [facility] [place] [address] * POC, GLUCOSE (09/30/2024 4:29 PM EST) Glucometer, POC 126 65 - 199 mg/dL 09/30/2024 4:30 PM EST [facility] Comment:Supplemental ranges: <140 mg/dL before meals <180 mg/dL all other times of the day. Blood CAPILLARY BLOOD / Unknown 09/30/2024 4:29 PM EST 09/30/2024 4:30 PM EST Hayely Torres MD POINT OF CARE TEST O GILDA Performing Organization Address City/[facility] Co de Phone Number [facility] [place] [address] * POC, GLUCOSE (09/30/2024 12:16 PM EST) Glucometer, POC 107 65 - 199 mg/dL 09/30/2024 12:16 PM EST [facility] Comment:Supplemental ranges: <140 mg/dL before meals <180 mg/dL all other times of the day. Blood CAPILLARY BLOOD / Unknown 09/30/2024 12:16 PM EST 09/30/2024 12:16 PM EST Hayley Torres MD POINT OF CARE TEST O RDERABLES Performing Organization Address City/[facility] Co de Phone Number [facility] [place] [address] * POC, GLUCOSE (09/30/2024 7:58 AM EST) Glucometer, POC 92 65 - 199 mg/dL 09/30/2024 7:58 AM EST [facility] Comment:Supplemental ranges: <140 mg/dL before meals <180 mg/dL all other times of the day. Blood CAPILLARY BLOOD / Unknown 09/30/2024 7:58 AM EST 09/30/2024 7:58 AM EST Hayley Torres MD POINT OF CARE TEST O RDTYESHA Performing Organization Address [facility]/ZIP Co de Phone Number [facility] [place] [address] * Potassium (09/30/2024 6:27 AM EST) Potassium 3.9 3.5 - 5.0 mMol/L 09/30/2024 7:10 AM EST [facility] Blood VENOUS BLOOD SPECIMEN / Unknown Venipuncture / Unknown 09/30/2024 6:27 AM EST 09/30/2024 6:35 AM EST Hayley Torres MD CHEMISTRY ORDERABLES Performing Organization Address City/[facility]/ZIP Co de Phone Number [facility] [place] [address] * Vancomycin, trough (09/30/2024 6:27 AM EST) Vancomycin, Trough 14.1 10.0 - 20.0 mg/L 09/30/2024 7:10 AM EST [facility] Comment: Varies according to infection source. Blood VENOUS BLOOD SPECIMEN / Unknown Venipuncture / Unknown 09/30/2024 6:27 AM EST 09/30/2024 6:35 AM EST Hayley Torres MD CHEMISTRY ORDERABLES Performing Organization Address City/[facility]/ZIP Co de Phone Number [facility] [place] [address] * POC, GLUCOSE (09/30/2024 3:51 AM EST) Glucometer, POC 134 65 - 199 mg/dL 09/30/2024 3:51 AM EST [facility] Comment:Supplemental ranges: <140 mg/dL before meals <180 mg/dL all other times of the day. Blood CAPILLARY BLOOD / Unknown 09/30/2024 3:51 AM EST 09/30/2024 3:51 AM EST Hayley Torres MD POINT OF CARE TEST O RDERABLES Performing Organization Address City/[facility] Co de Phone Number [facility] [place] [address] * Magnesium (09/29/2024 11:52 PM EST) Pathologist [facility] Magnesium 0.85 0.69 - 1.07 mMol/L 09/30/2024 12:25 AM EST [facility] Blood VENOUS BLOOD SPECIMEN / Unknown Venipuncture / Unknown 09/29/2024 11:52 PM EST 09/29/2024 11:58 PM EST Hayley Torres MD CHEMISTRY ORDERABLES Performing Organization Address City/[facility]/ZIP Co de Phone Number [facility] [place] [place] [address] * (ABNORMAL) Basic Metabolic Panel (09/29/2024 11:52 PM EST) Glucose 133 65 - 199 mg/dL 09/30/2024 12:51 AM EST [facility] Comment:Glucose Concentratio n >=200 mg/dL plus symptoms is consistent with Diabetes Mellitus. Blood Urea Nitrogen 9(L) 10 - 20 mg/dL 09/30/2024 12:51 AM [facility] Creatinine 0.48(L) 0.80 - 1.50 mg/dL 09/30/2024 12:51 AM [facility] Sodium 138 135 - 145 mMol/L 09/30/2024 12:51 AM [facility] Potassium 3.4(L) 3.5 - 5.0 mMol/L 09/30/2024 12:51 AM [facility] Chloride 103 98 - 107 mMol/L 09/30/2024 12:51 AM [facility] Carbon Dioxide 24 22 - 31 mMol/L 09/30/2024 12:51 AM [facility] Anion Gap 11 5 - 15 mMol/L 09/30/2024 12:51 AM [facility] Calcium 8.1(L) 8.5 - 10.5 mg/dL 09/30/2024 12:51 AM [facility] Est Glomerular Filtration Rate - Male 126 mL/min/1. 73 m?? 09/30/2024 12:51 AM [facility] Comment: This patient's estimated GFR [...] Torres MD CHEMISTRY ORDERABLES [facility] [place] [address] * (ABNORMAL) CBC (with Diff) (09/29/2024 11:52 PM EST) White Blood Cell 9.54(H) 4.00 - 9.50 x10(3)/mc L 09/30/2024 12:02 AM [facility] Red Blood Cell 3.04(L) 4.58 - 5.54 x10(6)/mc L 09/30/2024 12:02 AM [facility] Hemoglobin 8.7(L) 13.7 - 16.5 g/dL 09/30/2024 12:02 AM [facility] Hematocrit 25.8(L) 40.5 - 48.5 % 09/30/2024 12:02 AM [facility] Mean Cell Volume 84.9 82.9 - 93.1 fL 09/30/2024 12:02 AM [facility] Mean Cell Hemoglobin 28.6 27.5 - 32.1 pg 09/30/2024 12:02 AM [facility] Mean Cell Hemoglobin Concentration 33.7 32.0 - 35.7 g/dL 09/30/2024 12:02 AM [facility] Platelet 411(H) 145 - 357 x10(3)/mc L 09/30/2024 12:02 AM [facility] Mean Platelet Volume 8.8 7.6 - 12.9 fL 09/30/2024 12:02 AM [facility] RDW Standard Deviation 41.4 36.0 - 45.0 fL 09/30/2024 12:02 AM [facility] RDW coefficient of variation 13.4 11.4 - 13.8 % 09/30/2024 12:02 AM [facility] NRBC% auto 0.0 % 09/30/2024 12:02 AM [facility] NRBC Absolute <0.01 <0.01 x10(3)/mc L 09/30/2024 12:02 AM [facility] Neutrophil % 64.5 % 09/30/2024 12:02 AM [facility] Neutrophil Absolute (ANC) - Automated 6.16(H) 1.70 - 6.10 x10(3)/mc L 09/30/2024 12:02 AM [facility] Lymph % 23.1 % 09/30/2024 12:02 AM [facility] Lymph Absolute 2.20 0.90 - 3.20 x10(3)/mc L 09/30/2024 12:02 AM [facility] Monocyte % 8.0 % 09/30/2024 12:02 AM [facility] Monocyte Absolute 0.76 0.30 - 0.90 x10(3)/mc L 09/30/2024 12:02 AM [facility] Eos % 1.5 % 09/30/2024 12:02 AM [facility] Eos Absolute 0.14 0.00 - 0.40 x10(3)/mc L 09/30/2024 12:02 AM [facility] Basophil % 0.3 % 09/30/2024 12:02 AM [facility] Baso Absolute <0.04 0.00 - 0.10 x10(3)/mc L 09/30/2024 12:02 AM [facility] Immature Gran % 2.6 % 12:02 AM [facility] Immature Gran Absolute 0.25(H) 0.00 - 0.04 x10(3)/mc L 09/30/2024 12:02 AM [facility] Blood VENOUS BLOOD SPECIMEN / Unknown Venipuncture / Unknown 09/29/2024 11:52 PM EST 09/29/2024 11:58 PM EST Hayley Torres MD HEMATOLOGY ORDERABLE S [facility] [place] [address] * POC, GLUCOSE (09/29/2024 11:51 PM EST) Glucometer, POC 134 65 - 199 mg/dL 09/29/2024 11:51 PM EST [facility] Comment:Supplemental ranges: <140 mg/dL before meals <180 mg/dL all other times of the day. Blood CAPILLARY BLOOD / Unknown 09/29/2024 11:51 PM EST 09/29/2024 11:51 PM EST Hayley Torres MD POINT OF CARE TEST O RDERABLES [facility] [place] [address] * Blood culture (09/29/2024 9:24 PM EST) Blood Culture No growth at 120 hours 10/04/2024 11:01 PM EST [facility] Blood VENOUS BLOOD SPECIMEN / Unknown Venipuncture / Unknown 09/29/2024 9:24 PM EST 09/29/2024 9:34 PM EST Hayley Torres MD MICROBIOLOGY - BLOOD ORDERABLES Performing Organization Address City/[facility]/ZIP Co de Phone Number [facility] [place] [address] * Blood culture (09/29/2024 9:24 PM EST) Blood Culture No growth at 120 hours 10/04/2024 11:01 PM EST [facility] Blood VENOUS BLOOD SPECIMEN / Unknown Venipuncture / Unknown 09/29/2024 9:24 PM EST 09/29/2024 9:34 PM EST Marko Dickson MD MICROBIOLOGY - BLOOD ORDERABLES [facility] [place] [address] * (ABNORMAL) POC, GLUCOSE (09/29/2024 7:35 PM EST) Glucometer, POC 202(H) 65 - 199 mg/dL 09/29/2024 7:36 PM EST [facility] Comment:Supplemental ranges: <140 mg/dL before meals <180 mg/dL all other times of the day. Blood CAPILLARY BLOOD / Unknown 09/29/2024 7:35 PM EST 09/29/2024 7:36 PM EST Hayley Torres MD POINT OF CARE TEST O GILDA Performing Organization Address City/[facility]/ZIP Co de Phone Number [facility] [place] [address] * POC, GLUCOSE (09/29/2024 6:48 PM EST) Glucometer, POC 161 65 - 199 mg/dL 09/29/2024 6:48 PM EST [facility] Comment:Supplemental ranges: <140 mg/dL before meals <180 mg/dL all other times of the day. Blood CAPILLARY BLOOD / Unknown 09/29/2024 6:48 PM EST 09/29/2024 6:49 PM EST Hayley Torres MD POINT OF CARE TEST O GILDA Performing Organization Address City/[facility]/ZIP Co de Phone Number [facility] [place] [address] * POC, GLUCOSE (09/29/2024 4:06 PM EST) Glucometer, POC 122 65 - 199 mg/dL 09/29/2024 4:06 PM EST [facility] Comment:Supplemental ranges: <140 mg/dL before meals <180 mg/dL all other times of the day. Blood CAPILLARY BLOOD / Unknown 09/29/2024 4:06 PM EST 09/29/2024 4:06 PM EST Hayley Torres MD POINT OF CARE TEST O RDERABLES Performing Organization Address [facility] Co de Phone Number [facility] [place] [address] * POC, GLUCOSE (09/29/2024 11:49 AM EST) Glucometer, POC 135 65 - 199 mg/dL 09/29/2024 11:49 AM EST [facility] Comment:Supplemental ranges: <140 mg/dL before meals <180 mg/dL all other times of the day. Blood CAPILLARY BLOOD / Unknown 09/29/2024 11:49 AM EST 09/29/2024 11:50 AM EST Hayley Torres MD POINT OF CARE TEST O RDERAHERNANDEZ Performing Organization Address [facility] de Phone Number [facility] [place] [address] * (ABNORMAL) POC, GLUCOSE (09/29/2024 7:53 AM EST) Glucometer, POC 202(H) 65 - 199 mg/dL 09/29/2024 7:53 AM EST [facility] Comment:Supplemental ranges: <140 mg/dL before meals <180 mg/dL all other times of the day. Blood CAPILLARY BLOOD / Unknown 09/29/2024 7:53 AM EST 09/29/2024 7:53 AM EST Hayley Torres MD POINT OF CARE TEST O RDERABLES Performing Organization Address City/[facility] Co de Phone Number [facility] [place] [address] * POC, GLUCOSE (09/29/2024 3:45 AM EST) Glucometer, POC 184 65 - 199 mg/dL 09/29/2024 3:46 AM EST [facility] Comment:Supplemental ranges: <140 mg/dL before meals <180 mg/dL all other times of the day. Blood CAPILLARY BLOOD / Unknown 09/29/2024 3:45 AM EST 09/29/2024 3:46 AM EST Hayley Torres MD POINT OF CARE TEST O RDERABLES [facility] [place] [address] * (ABNORMAL) Hemoglobin A1c (09/28/2024 11:51 PM [...] red blood cell turnover may not be membership sales representative of glycemic control. Reference Interval: 4.3 - 5.6% 5.7 - 6.4%: Consistent with prediabetes >=6.5%: Consistent with diagnosis of diabetes mellitus Estimated Average Glucose 232 mg/dL 09/29/2024 9:54 AM EST [facility] Blood VENOUS BLOOD SPECIMEN / Unknown Venipuncture / Unknown 09/28/2024 11:51 PM EST 09/28/2024 11:56 PM EST Hayley Torres MD CHEMISTRY ORDERABLES [facility] [place] [address] * Magnesium (09/28/2024 11:51 PM EST) Magnesium 0.72 0.69 - 1.07 mMol/L 09/29/2024 12:27 AM EST [facility] Blood VENOUS BLOOD SPECIMEN / Unknown Venipuncture / Unknown 09/28/2024 11:51 PM EST 09/28/2024 11:57 PM EST Hayley Torres MD CHEMISTRY ORDERABLES [facility] [place] [address] * (ABNORMAL) Basic Metabolic Panel (09/28/2024 11:51 PM EST) Glucose 204(H) 65 - 199 mg/dL 09/29/2024 12:40 AM [facility] Comment:Glucose Concentratio n >=200 mg/dL plus symptoms is consistent with Diabetes Mellitus. Blood Urea Nitrogen 6(L) 10 - 20 mg/dL 09/29/2024 12:40 AM [facility] Creatinine 0.52(L) 0.80 - 1.50 mg/dL 09/29/2024 12:40 AM [facility] Sodium 137 135 - 145 mMol/L 09/29/2024 12:40 AM [facility] Potassium 3.2(L) 3.5 - 5.0 mMol/L 09/29/2024 12:40 AM [facility] Chloride 105 98 - 107 mMol/L 09/29/2024 12:40 AM [facility] Carbon Dioxide 21(L) 22 - 31 mMol/L 09/29/2024 12:40 AM [facility] Anion Gap 11 5 - 15 mMol/L 09/29/2024 12:40 AM [facility] Calcium 6.7(LLL) 8.5 - 10.5 mg/dL 09/29/2024 12:40 AM [facility] Est Glomerular Filtration Rate - Male 123 mL/min/1. 73 m?? 09/29/2024 12:40 AM [facility] Comment: This patient's estimated GFR [...] Torres MD CHEMISTRY ORDERABLES [facility] [place] [address] * (ABNORMAL) CBC (with Diff) (09/28/2024 11:51 PM EST) White Blood Cell 12.76(H) 4.00 - 9.50 x10(3)/mc L 09/29/2024 12:00 AM [facility] Red Blood Cell 2.90(L) 4.58 - 5.54 x10(6)/mc L 09/29/2024 12:00 AM [facility] Hemoglobin 8.5(L) 13.7 - 16.5 g/dL 09/29/2024 12:00 AM [facility] Hematocrit 24.7(L) 40.5 - 48.5 % 09/29/2024 12:00 AM [facility] Mean Cell Volume 85.2 82.9 - 93.1 fL 09/29/2024 12:00 AM [facility] Mean Cell Hemoglobin 29.3 27.5 - 32.1 pg 09/29/2024 12:00 AM [facility] Mean Cell Hemoglobin Concentration 34.4 32.0 - 35.7 g/dL 09/29/2024 12:00 AM [facility] Platelet 331 145 - 357 x10(3)/mc L 09/29/2024 12:00 AM [facility] Mean Platelet Volume 9.2 7.6 - 12.9 fL 09/29/2024 12:00 AM [facility] RDW Standard Deviation 40.4 36.0 - 45.0 fL 09/29/2024 12:00 AM [facility] RDW coefficient of variation 13.1 11.4 - 13.8 % 09/29/2024 12:00 AM [facility] NRBC% auto 0.0 % 09/29/2024 12:00 AM [facility] NRBC Absolute <0.01 <0.01 x10(3)/mc L 09/29/2024 12:00 AM [facility] Neutrophil % 86.7 % 09/29/2024 12:00 AM [facility] Neutrophil Absolute (ANC) - Automated 11.06(H) 1.70 - 6.10 x10(3)/mc L 09/29/2024 12:00 AM [facility] Lymph % 7.7 % 09/29/2024 12:00 AM [facility] Lymph Absolute 0.98 0.90 - 3.20 x10(3)/mc L 09/29/2024 12:00 AM [facility] Monocyte % 4.0 % 09/29/2024 12:00 AM [facility] Monocyte Absolute 0.51 0.30 - 0.90 x10(3)/mc L 09/29/2024 12:00 AM [facility] Eos % 0.0 % 09/29/2024 12:00 AM [facility] Eos Absolute <0.04 0.00 - 0.40 x10(3)/mc L 09/29/2024 12:00 AM [facility] Basophil % 0.2 % 09/29/2024 12:00 AM [facility] Baso Absolute <0.04 0.00 - 0.10 x10(3)/mc L 09/29/2024 12:00 AM [facility] Immature Gran % 1.4 % 12:00 AM EST [facility] Immature Gran Absolute 0.18(H) 0.00 - 0.04 x10(3)/mc L 09/29/2024 12:00 AM EST [facility] Blood VENOUS BLOOD SPECIMEN / Unknown Venipuncture / Unknown 09/28/2024 11:51 PM EST 09/28/2024 11:56 PM EST Hayley Torres MD HEMATOLOGY ORDERABLE S [facility] [place] [address] * (ABNORMAL) POC, GLUCOSE (09/28/2024 11:45 PM EST) Glucometer, POC 238(H) 65 - 199 mg/dL 09/28/2024 11:45 PM EST [facility] Comment:Supplemental ranges: <140 mg/dL before meals <180 mg/dL all other times of the day. Blood CAPILLARY BLOOD / Unknown 09/28/2024 11:45 PM EST 09/28/2024 11:45 PM EST Hayley Torres MD POINT OF CARE TEST O GILDA Performing Organization Address [facility]/ZIP Co de Phone Number [facility] [place] [address] * (ABNORMAL) POC, GLUCOSE (09/28/2024 10:00 PM EST) Glucometer, POC 287(H) 65 - 199 mg/dL 09/28/2024 10:00 PM EST [facility] Comment:Supplemental ranges: <140 mg/dL before meals <180 mg/dL all other times of the day. Blood CAPILLARY BLOOD / Unknown 09/28/2024 10:00 PM EST 09/28/2024 10:00 PM EST Hayley Torres MD POINT OF CARE TEST O GILDA Performing Organization Address City/[facility]/ZIP Co de Phone Number [facility] [place] [address] * (ABNORMAL) POC, GLUCOSE (09/28/2024 7:51 PM EST) Glucometer, POC 243(H) 65 - 199 mg/dL 09/28/2024 7:52 PM EST [facility] Comment:Supplemental ranges: <140 mg/dL before meals <180 mg/dL all other times of the day. Blood CAPILLARY BLOOD / Unknown 09/28/2024 7:51 PM EST 09/28/2024 7:52 PM EST Hayley Torres MD POINT OF CARE TEST O GILDA Performing Organization Address [facility]/ZIP Co de Phone Number [facility] [place] [address] * Blood culture (09/28/2024 5:49 PM EST) Pathologist [facility] Blood Culture No growth at 120 hours 10/03/2024 7:01 PM EST [facility] Blood VENOUS BLOOD SPECIMEN / Unknown Venipuncture / Unknown 09/28/2024 5:49 PM EST 09/28/2024 5:53 PM EST Marko Dickson MD MICROBIOLOGY - BLOOD ORDERABLES Performing Organization Address [facility] Co de Phone Number [facility] [place] [address] * (ABNORMAL) POC, GLUCOSE (09/28/2024 4:42 PM EST) Glucometer, POC 203(H) 65 - 199 mg/dL 09/28/2024 4:42 PM EST [facility] Comment:Supplemental ranges: <140 mg/dL before meals <180 mg/dL all other times of the day. Blood CAPILLARY BLOOD / Unknown 09/28/2024 4:42 PM EST 09/28/2024 4:42 PM EST Hayley Torres MD POINT OF CARE TEST O GILDA Performing Organization Address City/[facility]/ZIP Co de Phone Number [facility] [place] [address] * (ABNORMAL) Blood Gas, Arterial POC (09/28/2024 3:16 PM EST) pH, Arterial 7.42 7.35 - 7.45 09/28/2024 3:17 PM [facility] PCO2, Arterial 39 35 - 45 mmHg 09/28/2024 3:17 PM [facility] PO2, Arterial 103 85 - 104 mmHg 09/28/2024 3:17 PM [facility] Bicarbonate, Arterial 24.8 20.0 - 26.0 mmol/L 09/28/2024 3:17 PM [facility] Base Excess, Arterial 0.2 -3.0 - 3.0 mmol/L 09/28/2024 3:17 PM [facility] Hemoglobin, Arterial 10.9(L) 13.7 - 16.5 g/dL 09/28/2024 3:17 PM [facility] Oxyhemoglobin, Arterial 97.1(H) 94.0 - 97.0 % 09/28/2024 3:17 PM [facility] Carboxyhemoglobin , Arterial 0.1 % 09/28/2024 3:17 PM [facility] Comment: Nonsmokers: 0.5-1.5% COHB ?? Smokers: Variable ??but usually less than 10% ?? Toxic: 20-30% COHB ?? Lethal: Greater than 60% COHB Methemoglobin, Arterial 0.2 <=1.5 % 09/28/2024 3:17 PM [facility] Sodium, Arterial 131(L) 135 - 145 mmol/L 09/28/2024 3:17 PM [facility] Potassium, Arterial 3.8 3.5 - 5.0 mmol/L 09/28/2024 3:17 PM [facility] Chloride, Arterial 99 98 - 107 mmol/L 09/28/2024 3:17 PM [facility] Lactate, Arterial 1.1 0.5 - [...] O RDERABLES Performing Organization Address [facility]/State/ZIP Co de Phone Number [facility] [place] [address] * Surgical Pathology (09/28/2024 2:10 PM EST) Case Report Surgical Pathology Report ? Case: [id number] ? Authorizing Provider: ??Hayley Torres MD ? Collected: ? 09/28/2024 1410 ? Ordering Location: ? Main Operating Room [facility] ?? Received: ?09/28/2024 1644 ? [facility] ? Hospital ? Pathologist: ? Aziza Packer MD ? Specimens: ?? A) - Leg, Left, Left femoral proximal graft ? B) - Leg, Left, Left distal BK pop graft ? 10/02/2024 8:17 AM [facility] Final Diagnosis A. Graft, left leg, femoral proximal, excision: - Gross surgical pathology examination. B. Graft, left leg, distal BK pop, excision: - Gross surgical pathology examination. 10/02/2024 8:17 AM [facility] Clinical Information A. Leg, Left, Left femoral proximal graft Left femoral proximal graft B. Leg, Left, Left distal BK pop graft Left distal BK pop graft 10/02/2024 8:17 AM [facility] Gross Description A. Leg, Left, [...] 10/02/2024 8:17 AM EST [facility] Accounts Receivable Specialist STRUCTURE OF LEFT LOWER LIMB / Unknown 09/28/2024 2:10 PM EST 09/28/2024 4:44 PM EST Comment:Left femoral proxima l graft Biomedical device (physical object) STRUCTURE OF LEFT LOWER LIMB / Unknown 09/28/2024 2:17 PM EST 09/28/2024 4:44 PM EST Comment:Left distal BK pop g raft Hayley Torres MD PATHOLOGY/CYTOLOGY O RDERABLES [facility] [place] [address] * Potassium (09/28/2024 10:45 AM EST) Potassium 4.6 3.5 - 5.0 mMol/L 09/28/2024 12:26 PM EST [facility] Blood VENOUS BLOOD SPECIMEN / Unknown Venipuncture / Unknown 09/28/2024 10:45 AM EST 09/28/2024 10:53 AM EST Marko Dickson MD CHEMISTRY ORDERABLES [facility] [place] [address] * POC, GLUCOSE (09/28/2024 7:57 AM EST) Glucometer, POC 192 65 - 199 mg/dL 09/28/2024 7:57 AM EST [facility] Comment:Supplemental ranges: <140 mg/dL before meals <180 mg/dL all other times of the day. Blood CAPILLARY BLOOD / Unknown 09/28/2024 7:57 AM EST 09/28/2024 7:57 AM EST Marko Dickson MD POINT OF CARE TEST O RDERABLES [facility] [place] [address] * ELEN, legs, multiple levels (09/28/2024 7:44 AM EST) VB Text Report Department: Vascular Surgery Lab Patient: [id number] (GEOVANNA DIXON) CPT: 39579 Referring Physician: HERMILA SNIDER ?? Phone: Indications: [...] EST Narrative 09/28/2024 9:15 AM EST [address] [place] [address] ? Echocardiogram Report Name: GEOVANNA DIXON JR ?Study Date: 09/28/2024 06:56 AMBP: 132/75 mmHg ? Patient Location: ^IC08^A : 1975 ? Height: 179 cm ? Account: [id number] Age: 49 yrs ? Weight: 108 kg Gender: Male ?BSA: 2.3 m2 Ordering Physician: Marko Dickson MD Referring Physician: PATRIC GILES Performed By: Faiza Cole Reason For Study: Vascular graft infection, initial encounter; MRSA bacteremia Interpreting Fellow: Jame Lares. Exam Location: [facility]. Interpretation Summary -Limited study performed for bacteremia [...] 05/29/2024, no significant changes. Procedure Limited - 09011. Doppler - 80420. Color Doppler - 89936. Suboptimal quality. This study is limited because [...] Note David Lomeli MD - 09/28/2024 [address] [place] [address] Echocardiogram Report Name: GEOVANNA DIXON JR Study Date: 406:56 AMBP: 132/75 mmHg Patient Location:[facility]^A : 1975 Height: 179 cm Account: [id number] Age: 49 yrs Weight: 108 kg Gender: Male BSA: 2.3 m2 Ordering Physician: Marko Dickson MD Referring Physician: PATRIC GILES Performed By: Faiza Cole Reason For Study: Vascular graft infection, initial encounter; MRSAbacteremia Interpreting Fellow: Jame Lares. Exam Location: [facility]. Interpretation Summary -Limited study performed for bacteremia [...] 05/29/2024, no significant changes. Procedure Limited - 90173. Doppler - 18500. Color Doppler - 83192. Suboptimalquality. This study is limited because of [...] Dickson MD CHEMISTRY ORDERABLES Performing Organization Address [facility]/ZIP Co de Phone Number [facility] [place] [address] * (ABNORMAL) Potassium (09/28/2024 4:55 AM EST) Potassium 2.9(LLL) 3.5 - 5.0 mMol/L 09/28/2024 5:31 AM EST [facility] Blood VENOUS BLOOD SPECIMEN / Unknown Venipuncture / Unknown 09/28/2024 4:55 AM EST 09/28/2024 5:01 AM EST Marko Dickson MD CHEMISTRY ORDERABLES Performing Organization Address [facility] Co de Phone Number [facility] [place] [address] * (ABNORMAL) POC, GLUCOSE (09/28/2024 3:54 AM EST) Glucometer, POC 229(H) 65 - 199 mg/dL 09/28/2024 3:54 AM EST [facility] Comment:Supplemental ranges: <140 mg/dL before meals <180 mg/dL all other times of the day. Blood CAPILLARY BLOOD / Unknown 09/28/2024 3:54 AM EST 09/28/2024 3:54 AM EST Marko Dickson MD POINT OF CARE TEST O RDERABLES Performing Organization Address [facility] Co de Phone Number [facility] [place] [address] * Magnesium (09/27/2024 11:58 PM EST) Magnesium 0.77 0.69 - 1.07 mMol/L 09/28/2024 12:38 AM EST [facility] Blood VENOUS BLOOD SPECIMEN / Unknown Venipuncture / Unknown 09/27/2024 11:58 PM EST 09/28/2024 12:10 AM EST Hayley Torres MD CHEMISTRY ORDERABLES [facility] [place] [address] * (ABNORMAL) Basic Metabolic Panel (09/27/2024 11:58 PM EST) Glucose 246(H) 65 - 199 mg/dL 09/28/2024 12:38 AM EST [facility] Comment:Glucose Concentratio n >=200 mg/dL plus symptoms is consistent with Diabetes Mellitus. Blood Urea Nitrogen 5(L) 10 - 20 mg/dL 09/28/2024 12:38 AM [facility] Creatinine 0.48(L) 0.80 - 1.50 mg/dL 09/28/2024 12:38 AM [facility] Sodium 131(L) 135 - 145 mMol/L 09/28/2024 12:38 AM [facility] Potassium 3.2(L) 3.5 - 5.0 mMol/L 09/28/2024 12:38 AM [facility] Chloride 95(L) 98 - 107 mMol/L 09/28/2024 12:38 AM [facility] Carbon Dioxide 23 22 - 31 mMol/L 09/28/2024 12:38 AM [facility] Anion Gap 13 5 - 15 mMol/L 09/28/2024 12:38 AM [facility] Calcium 8.1(L) 8.5 - 10.5 mg/dL 09/28/2024 12:38 AM [facility] Est Glomerular Filtration Rate - Male 126 mL/min/1. 73 m?? 09/28/2024 12:38 AM [facility] Comment: This patient's estimated GFR [...] Torres MD CHEMISTRY ORDERABLES [facility] [place] [address] * (ABNORMAL) CBC (with Diff) (09/27/2024 11:58 PM EST) White Blood Cell 17.15(H) 4.00 - 9.50 x10(3)/mc L 09/28/2024 12:14 AM [facility] Red Blood Cell 3.64(L) 4.58 - 5.54 x10(6)/mc L 09/28/2024 12:14 AM [facility] Hemoglobin 10.4(L) 13.7 - 16.5 g/dL 09/28/2024 12:14 AM [facility] Hematocrit 30.5(L) 40.5 - 48.5 % 09/28/2024 12:14 AM [facility] Mean Cell Volume 83.8 82.9 - 93.1 fL 09/28/2024 12:14 AM [facility] Mean Cell Hemoglobin 28.6 27.5 - 32.1 pg 09/28/2024 12:14 AM [facility] Mean Cell Hemoglobin Concentration 34.1 32.0 - 35.7 g/dL 09/28/2024 12:14 AM [facility] Platelet 316 145 - 357 x10(3)/mc L 09/28/2024 12:14 AM [facility] Mean Platelet Volume 9.4 7.6 - 12.9 fL 09/28/2024 12:14 AM [facility] RDW Standard Deviation 39.4 36.0 - 45.0 fL 09/28/2024 12:14 AM [facility] RDW coefficient of variation 12.8 11.4 - 13.8 % 09/28/2024 12:14 AM [facility] NRBC% auto 0.0 % 09/28/2024 12:14 AM [facility] NRBC Absolute <0.01 <0.01 x10(3)/mc L 09/28/2024 12:14 AM [facility] Neutrophil % 81.2 % 09/28/2024 12:14 AM [facility] Neutrophil Absolute (ANC) - Automated 13.93(H) 1.70 - 6.10 x10(3)/mc L 09/28/2024 12:14 AM [facility] Lymph % 10.5 % 09/28/2024 12:14 AM [facility] Lymph Absolute 1.80 0.90 - 3.20 x10(3)/mc L 09/28/2024 12:14 AM [facility] Monocyte % 5.7 % 09/28/2024 12:14 AM [facility] Monocyte Absolute 0.98(H) 0.30 - 0.90 x10(3)/mc L 09/28/2024 12:14 AM [facility] Eos % 0.7 % 09/28/2024 12:14 AM [facility] Eos Absolute 0.12 0.00 - 0.40 x10(3)/mc L 09/28/2024 12:14 AM [facility] Basophil % 0.5 % 09/28/2024 12:14 AM [facility] Baso Absolute 0.08 0.00 - 0.10 x10(3)/mc L 09/28/2024 12:14 AM EST [facility] Immature Gran % 1.4 % 12:14 AM [facility] Immature Gran Absolute 0.24(H) 0.00 - 0.04 x10(3)/mc L 09/28/2024 12:14 AM [facility] Blood VENOUS BLOOD SPECIMEN / Unknown Venipuncture / Unknown 09/27/2024 11:58 PM EST 09/28/2024 12:10 AM EST Hayley Torres MD HEMATOLOGY ORDERABLE S [facility] [place] [address] * (ABNORMAL) POC, GLUCOSE (09/27/2024 11:46 PM EST) Glucometer, POC 205(H) 65 - 199 mg/dL 09/27/2024 11:46 PM [facility] Comment:Supplemental ranges: <140 mg/dL before meals <180 mg/dL all other times of the day. Blood CAPILLARY BLOOD / Unknown 09/27/2024 11:46 PM EST 09/27/2024 11:46 PM EST Marko Dickson MD POINT OF CARE TEST O RDERABLES [facility] [place] [address] * (ABNORMAL) Blood culture (09/27/2024 9:33 PM EST) Blood Culture Methicillin Resistant Staphylococcus aureus(Critical) 10/02/2024 8:04 AM [facility] Comment:Susceptibilities pre viously reported. Gram Stain Aerobic Bottle: Gram positive cocci in clusters(Critical ) 10/02/2024 8:04 AM [facility] Blood VENOUS BLOOD SPECIMEN / Unknown Venipuncture / Unknown 09/27/2024 9:33 PM EST 09/27/2024 9:38 PM EST Marko Dickson MD MICROBIOLOGY - BLOOD ORDERABLES Performing Organization Address City/[facility]/ZIP Co de Phone Number [facility] [place] [address] * POC, GLUCOSE (09/27/2024 7:51 PM EST) Glucometer, POC 142 65 - 199 mg/dL 09/27/2024 7:51 PM EST [facility] Comment:Supplemental ranges: <140 mg/dL before meals <180 mg/dL all other times of the day. Blood CAPILLARY BLOOD / Unknown 09/27/2024 7:51 PM EST 09/27/2024 7:51 PM EST Marko Dickson MD POINT OF CARE TEST O RDERABLES Performing Organization Address [facility]/ZIP Co de Phone Number [facility] [place] [address] * (ABNORMAL) Hemogram (09/27/2024 5:55 PM EST) [facility] White Blood Cell 19.38(H) 4.00 - 9.50 x10(3)/mc L 09/27/2024 6:16 PM [facility] Red Blood Cell 3.76(L) 4.58 - 5.54 x10(6)/mc L 09/27/2024 6:16 PM [facility] Hemoglobin 11.0(L) 13.7 - 16.5 g/dL 09/27/2024 6:16 PM [facility] Hematocrit 31.6(L) 40.5 - 48.5 % 09/27/2024 6:16 PM [facility] Mean Cell Volume 84.0 82.9 - 93.1 fL 09/27/2024 6:16 PM [facility] Mean Cell Hemoglobin 29.3 27.5 - 32.1 pg 09/27/2024 6:16 PM [facility] Mean Cell Hemoglobin Concentration 34.8 32.0 - 35.7 g/dL 09/27/2024 6:16 PM EST [facility] Platelet 322 145 - 357 x10(3)/mc L 09/27/2024 6:16 PM [facility] Mean Platelet Volume 9.4 7.6 - 12.9 fL 09/27/2024 6:16 PM [facility] RDW Standard Deviation 39.4 36.0 - 45.0 fL 09/27/2024 6:16 PM [facility] RDW coefficient of variation 13.0 11.4 - 13.8 % 09/27/2024 6:16 PM [facility] NRBC% auto 0.0 % 09/27/2024 6:16 PM [facility] NRBC Absolute <0.01 <0.01 x10(3)/mc L 09/27/2024 6:16 PM [facility] Blood VENOUS BLOOD SPECIMEN / Unknown Venipuncture / Unknown 09/27/2024 5:55 PM EST 09/27/2024 6:05 PM EST Marko Dickson MD HEMATOLOGY ORDERABLE S [facility] [place] [address] * POC, GLUCOSE (09/27/2024 5:48 PM EST) Glucometer, POC 171 65 - 199 mg/dL 09/27/2024 5:48 PM EST [facility] Comment:Supplemental ranges: <140 mg/dL before meals <180 mg/dL all other times of the day. 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 Blood CAPILLARY BLOOD / Unknown 09/27/2024 3:23 PM EST 09/27/2024 3:23 PM EST Marko Dickson MD POINT OF CARE TEST O GILDA Performing Organization Address [facility] de Phone Number [facility] [place] [place] [address] * POC, GLUCOSE (09/27/2024 11:29 AM EST) Glucometer, POC 181 65 - 199 mg/dL 09/27/2024 11:29 AM EST [facility] Comment:Supplemental ranges: <140 mg/dL before meals <180 mg/dL all other times of the day. Blood CAPILLARY BLOOD / Unknown 09/27/2024 11:29 AM EST 09/27/2024 11:30 AM EST Marko Dickson MD POINT OF CARE TEST Stephanie VO Performing Organization Address [facility] Co de Phone Number [facility] [place] [place] [address] * CT Lower Extremity w Contrast Left (09/27/2024 9:16 AM EST) WORKSTATION ID [id number] RAD Anatomical Region Laterality Modality Hip, Leg, [...] have questions please contact the health healthcare technician that requested your imaging first. ? Narrative [...] wedged between the vastus medialis and adductor Matinicus muscle. This tracks into the popliteal fossa [...] who have questions please contactthe health healthcare technician that requested your imaging first. Rose Wright DOCUMENT MANAGEMENT CONSULTANT IMG CT ORDERABL ES * POC, GLUCOSE (09/27/2024 7:51 AM EST) [facility] Glucometer, POC 194 65 - 199 mg/dL 09/27/2024 7:51 AM EST [facility] Comment:Supplemental ranges: <140 mg/dL before meals <180 mg/dL all other times of the day. Blood CAPILLARY BLOOD / Unknown 09/27/2024 7:51 AM EST 09/27/2024 7:51 AM EST Marko Dickson MD POINT OF CARE TEST O RDERABLES Performing Organization Address City/[facility] Co de Phone Number [facility] [place] [address] * (ABNORMAL) MRSA PCR Screen (09/27/2024 7:51 AM EST) [facility] MRSA PCR Detected(A ) 09/27/2024 11:56 AM EST [facility] Swab BOTH ANTERIOR NARES / Unknown Non Blood Collection / Unknown 09/27/2024 7:51 AM EST 09/27/2024 8:05 AM EST Narrative [facility] - 09/27/2024 11:56 AM EST This test was performed using the Xpert MRSA NxG test kit and is run on the [employer] GeneXpert Dx System. This test is cleared by the U.S. Food and Drug Administration for clinical use and its performance characteristics have been verified by the [facility] at [facility]. Marko Dickson MD MOLECULAR ORDERABLES Performing Organization Address City/[facility]/ZIP Co de Phone Number [facility] [place] [address] * Potassium (09/27/2024 7:51 AM EST) Potassium 3.5 3.5 - 5.0 mMol/L 09/27/2024 9:09 AM EST [facility] Blood VENOUS BLOOD SPECIMEN / Unknown Venipuncture / Unknown 09/27/2024 7:51 AM EST 09/27/2024 8:05 AM EST Marko Dickson MD CHEMISTRY ORDERABLES Performing Organization Address [facility] Co de Phone Number [facility] [place] [address] * (ABNORMAL) Potassium (09/27/2024 5:05 AM EST) Potassium 3.4(L) 3.5 - 5.0 mMol/L 09/27/2024 5:32 AM EST [facility] Blood VENOUS BLOOD SPECIMEN / Unknown Venipuncture / Unknown 09/27/2024 5:05 AM EST 09/27/2024 5:09 AM EST Marko Dickson MD CHEMISTRY ORDERABLES Performing Organization Address [facility] Co de Phone Number [facility] [place] [address] * POC, GLUCOSE (09/27/2024 3:52 AM EST) Glucometer, POC 199 65 - 199 mg/dL 09/27/2024 3:52 AM EST [facility] Comment:Supplemental ranges: <140 mg/dL before meals <180 mg/dL all other times of the day. Blood CAPILLARY BLOOD / Unknown 09/27/2024 3:52 AM EST 09/27/2024 3:52 AM EST Marko Dickson MD POINT OF CARE TEST O RDERABLES [facility] [place] [address] * (ABNORMAL) POC, GLUCOSE (09/27/2024 1:59 AM EST) Glucometer, POC 219(H) 65 - 199 mg/dL 09/27/2024 2:00 AM EST [facility] Comment:Supplemental ranges: <140 mg/dL before meals <180 mg/dL all other times of the day. Blood CAPILLARY BLOOD / Unknown 09/27/2024 1:59 AM EST 09/27/2024 2:00 AM EST Marko Dickson MD POINT OF CARE TEST O RDERABLES [facility] [place] [place] [address] * (ABNORMAL) Magnesium (09/27/2024 12:01 AM EST) Magnesium 0.68(L) 0.69 - 1.07 mMol/L 09/27/2024 12:35 AM EST [facility] Blood VENOUS BLOOD SPECIMEN / Unknown Venipuncture / Unknown 09/27/2024 12:01 AM EST 09/27/2024 12:05 AM EST Hayley Torres MD CHEMISTRY ORDERABLES [facility] [place] [address] * (ABNORMAL) Basic Metabolic Panel (09/27/2024 12:01 AM EST) Glucose 261(H) 65 - 199 mg/dL 09/27/2024 12:35 AM EST [facility] Comment:Glucose Concentratio n >=200 mg/dL plus symptoms is consistent with Diabetes Mellitus. Blood Urea Nitrogen 7(L) 10 - 20 mg/dL 09/27/2024 12:35 AM EST [facility] Creatinine 0.45(L) 0.80 - 1.50 mg/dL 09/27/2024 12:35 AM [facility] Sodium 128(L) 135 - 145 mMol/L 09/27/2024 12:35 AM [facility] Potassium 3.3(L) 3.5 - 5.0 mMol/L 09/27/2024 12:35 AM [facility] Chloride 92(L) 98 - 107 mMol/L 09/27/2024 12:35 AM [facility] Carbon Dioxide 23 22 - 31 mMol/L 09/27/2024 12:35 AM [facility] Anion Gap 13 5 - 15 mMol/L 09/27/2024 12:35 AM [facility] Calcium 8.5 8.5 - 10.5 mg/dL 09/27/2024 12:35 AM [facility] Est Glomerular Filtration Rate - Male 128 mL/min/1. 73 m?? 09/27/2024 12:35 AM [facility] Comment: This patient's estimated GFR [...] Torres MD CHEMISTRY ORDERABLES [facility] [place] [address] * (ABNORMAL) CBC (with Diff) (09/27/2024 12:01 AM EST) White Blood Cell 23.20(H) 4.00 - 9.50 x10(3)/mc L 09/27/2024 12:10 AM [facility] Red Blood Cell 4.07(L) 4.58 - 5.54 x10(6)/mc L 09/27/2024 12:10 AM [facility] Hemoglobin 11.7(L) 13.7 - 16.5 g/dL 09/27/2024 12:10 AM [facility] Hematocrit 33.6(L) 40.5 - 48.5 % 09/27/2024 12:10 AM [facility] Mean Cell Volume 82.6(L) 82.9 - 93.1 fL 09/27/2024 12:10 AM [facility] Mean Cell Hemoglobin 28.7 27.5 - 32.1 pg 09/27/2024 12:10 AM [facility] Mean Cell Hemoglobin Concentration 34.8 32.0 - 35.7 g/dL 09/27/2024 12:10 AM [facility] Platelet 296 145 - 357 x10(3)/mc L 09/27/2024 12:10 AM [facility] Mean Platelet Volume 9.5 7.6 - 12.9 fL 09/27/2024 12:10 AM [facility] RDW Standard Deviation 37.9 36.0 - 45.0 fL 09/27/2024 12:10 AM [facility] RDW coefficient of variation 12.6 11.4 - 13.8 % 09/27/2024 12:10 AM [facility] NRBC% auto 0.0 % 09/27/2024 12:10 AM [facility] NRBC Absolute <0.01 <0.01 x10(3)/mc L 09/27/2024 12:10 AM [facility] Neutrophil % 83.7 % 09/27/2024 12:10 AM [facility] Neutrophil Absolute (ANC) - Automated 19.43(H) 1.70 - 6.10 x10(3)/mc L 09/27/2024 12:10 AM [facility] Lymph % 6.7 % 09/27/2024 12:10 AM [facility] Lymph Absolute 1.56 0.90 - 3.20 x10(3)/mc L 09/27/2024 12:10 AM [facility] Monocyte % 7.8 % 09/27/2024 12:10 AM [facility] Monocyte Absolute 1.80(H) 0.30 - 0.90 x10(3)/mc L 09/27/2024 12:10 AM [facility] Eos % 0.2 % 09/27/2024 12:10 AM [facility] Eos Absolute 0.04 0.00 - 0.40 x10(3)/mc L 09/27/2024 12:10 AM [facility] Basophil % 0.5 % 09/27/2024 12:10 AM [facility] Baso Absolute 0.12(H) 0.00 - 0.10 x10(3)/mc L 09/27/2024 12:10 AM [facility] Immature Gran % 1.1 % 12:10 AM [facility] Immature Gran Absolute 0.25(H) 0.00 - 0.04 x10(3)/mc L 09/27/2024 12:10 AM [facility] Blood VENOUS BLOOD SPECIMEN / Unknown Venipuncture / Unknown 09/27/2024 12:01 AM EST 09/27/2024 12:05 AM EST Hayley Torres MD HEMATOLOGY ORDERABLE S [facility] [place] [address] * (ABNORMAL) POC, GLUCOSE (09/26/2024 11:59 PM EST) [facility] Signature Glucometer, POC 251(H) 65 - 199 mg/dL 09/26/2024 11:59 PM EST [facility] Comment:Supplemental ranges: <140 mg/dL before meals <180 mg/dL all other times of the day. Blood CAPILLARY BLOOD / Unknown 09/26/2024 11:59 PM EST 09/26/2024 11:59 PM EST Marko Dickson MD POINT OF CARE TEST O GILDA [facility] [place] [address] * (ABNORMAL) POC, GLUCOSE (09/26/2024 7:34 PM EST) Glucometer, POC 204(H) 65 - 199 mg/dL 09/26/2024 7:34 PM EST [facility] Comment:Supplemental ranges: <140 mg/dL before meals <180 mg/dL all other times of the day. Blood CAPILLARY BLOOD / Unknown 09/26/2024 7:34 PM EST 09/26/2024 7:35 PM EST Marko Dickson MD POINT OF CARE TEST O GILDA Performing Organization Address City/[facility]/ZIP Co de Phone Number [facility] [place] [address] * (ABNORMAL) Blood culture (09/26/2024 6:45 PM [...] MICROBIOLOGY - BLOOD ORDERABLES [facility] [place] [address] * (ABNORMAL) Sonicated Tissue/Implant Culture (09/26/2024 5:16 [...] - GENER AL ORDERABLES [facility] [place] [address] * Anaerobic Culture (09/26/2024 5:02 PM EST) Anaerobic Culture No anaerobic organisms isolated 09/30/2024 3:51 PM EST [facility] Abscess STRUCTURE OF LEFT KNEE REGION / Unknown Non Blood Collection / Unknown 09/26/2024 5:02 PM EST Comment:Left Below Knee popl iteal fluid Please perform Gram stain if not included in order Hayley Torres MD MICROBIOLOGY - GENER AL ORDERABLES [facility] [place] [address] * (ABNORMAL) Abscess/Wound Aspirate Culture, Aerobic Only [...] - GENER AL ORDERABLES Performing Organization Address City/[facility]/ZIP Co de Phone Number [facility] [place] [address] * Anaerobic Culture (09/26/2024 4:50 PM EST) Anaerobic Culture No anaerobic organisms isolated 09/30/2024 3:51 PM EST [facility] Abscess LEFT INGUINAL REGION STRUCTURE / Unknown Non Blood Collection / Unknown 09/26/2024 4:50 PM EST Comment:Left Groin Fluid Hayley Torres MD MICROBIOLOGY - GENER AL ORDERABLES Performing Organization Address City/[facility]/ZIP Co de Phone Number [facility] [place] [address] * (ABNORMAL) Abscess/Wound Aspirate Culture, Aerobic Only (09/26/2024 4:50 PM EST) Abscess/Wound Aspirate Culture Many Methicillin Resistant Staphylococcus aureus(A) VITEK 2 METHOD 09/30/2024 1:36 PM EST [facility] Gram Stain Many neutrophils(A) 09/30/2024 1:36 PM EST [facility] Gram Stain Many Gram positive cocci(A) 09/30/2024 1:36 PM [facility] Abscess LEFT INGUINAL REGION STRUCTURE [...] ug/ml: Susceptible Hayley Torres MD MICROBIOLOGY - [facility] AL ORDERABLES [facility] [place] [address] * (ABNORMAL) Blood Gas, Arterial POC (09/26/2024 4:43 PM EST) pH, Arterial 7.38 7.35 - 7.45 09/27/2024 7:41 AM [facility] PCO2, Arterial 41 35 - 45 mmHg 09/27/2024 7:41 AM [facility] PO2, Arterial 96 85 - 104 mmHg 09/27/2024 7:41 AM [facility] Bicarbonate, Arterial 23.8 20.0 - 26.0 mmol/L 09/27/2024 7:41 AM [facility] Base Excess, Arterial -1.4 -3.0 - 3.0 mmol/L 09/27/2024 7:41 AM [facility] Hemoglobin, Arterial 12.6(L) 13.7 - 16.5 g/dL 09/27/2024 7:41 AM [facility] Oxyhemoglobin, Arterial 96.2 94.0 - 97.0 % 09/27/2024 7:41 AM [facility] Carboxyhemoglobin , Arterial 0.3 % 09/27/2024 7:41 AM [facility] Comment: Nonsmokers: 0.5-1.5% COHB ?? Smokers: Variable ??but usually less than 10% ?? Toxic: 20-30% COHB ?? Lethal: Greater than 60% COHB Methemoglobin, Arterial 0.3 <=1.5 % 09/27/2024 7:41 AM [facility] Sodium, Arterial 128(L) 135 - 145 mmol/L 09/27/2024 7:41 AM [facility] Potassium, Arterial 3.0(LLL) 3.5 - 5.0 mmol/L 09/27/2024 7:41 AM [facility] Chloride, Arterial 95(L) 98 - 107 mmol/L 09/27/2024 7:41 AM [facility] Lactate, Arterial 1.7 0.5 - 2.2 mmol/L 09/27/2024 7:41 AM [facility] IONIZED CALCIUM, ARTERIAL 1.09(L) 1.15 - 1.33 mmol/L 09/27/2024 7:41 AM [facility] Glucose, Arterial 205(H) 65 - 199 mg/dL 09/27/2024 7:41 AM [facility] Comment:Glucose Concentratio n >=200 mg/dL plus symptoms is consistent with Diabetes Mellitus. Blood ARTERIAL BLOOD / Unknown 09/26/2024 4:43 PM EST 09/27/2024 7:41 AM EST Marko J Alef MD POINT OF CARE TEST O GILDA [facility] [place] [address] * (ABNORMAL) POC, GLUCOSE (09/26/2024 4:29 PM EST) Glucometer, POC 213(H) 65 - 199 mg/dL 09/26/2024 4:30 PM EST [facility] Comment:Supplemental ranges: <140 mg/dL before meals <180 mg/dL all other times of the day. Blood CAPILLARY BLOOD / Unknown 09/26/2024 4:29 PM EST 09/26/2024 4:30 PM EST Marko Dickson MD POINT OF CARE TEST O GILDA Performing Organization Address City/[facility]/ZIP Co de Phone Number [facility] [place] [address] * (ABNORMAL) Blood Gas, Venous POC (09/26/2024 3:28 PM EST) pH, Venous 7.43(H) 7.32 - 7.42 09/26/2024 3:30 PM EST [facility] PCO2, Venous 41 38 - 58 mmHg 09/26/2024 3:30 PM [facility] PO2, Venous 18 16 - 65 mmHg 09/26/2024 3:30 PM [facility] Bicarbonate, Venous 26.6 22 - 31 mmol/L 09/26/2024 3:30 PM [facility] Base Excess, Venous 2.3 1.9 - 4.5 mmol/L 09/26/2024 3:30 PM [facility] Hemoglobin, Venous 12.4(L) 13.7 - 16.5 g/dL 09/26/2024 3:30 PM [facility] Oxyhemoglobin, Venous 26.8 % 09/26/2024 3:30 PM [facility] Carboxyhemoglobin , Venous 1.0 % [...] 3.5 - 5.0 mmol/L 09/26/2024 3:30 PM [facility] Chloride, Venous 91(L) 98 - 107 mmol/L 09/26/2024 3:30 PM [facility] Glucose, Venous 259(H) 65 - 199 mg/dL 09/26/2024 3:30 PM EST [facility] Comment:Glucose Concentratio n >=200 mg/dL plus symptoms is consistent with Diabetes Mellitus. Lactate, Venous 2.2 0.5 - 2.2 mmol/L 09/26/2024 3:30 PM [facility] Ionized Calcium, Venous 1.09(L) 1.15 - 1.33 mmol/L 09/26/2024 3:30 PM [facility] Blood VENOUS BLOOD SPECIMEN / Unknown 09/26/2024 3:28 PM EST 09/26/2024 3:30 PM EST Marko Dickson MD POINT OF CARE TEST O RDERABLES [facility] [place] [address] * (ABNORMAL) Scan, Peripheral Blood (09/26/2024 2:39 PM EST) RBC Morphology Abnormal 09/26/2024 3:21 PM EST [facility] Platelet Estimate Normal Normal 09/26/2024 3:21 PM [facility] Microcyte 1-5 /HPF 09/26/2024 3:21 [...] HEMATOLOGY ORDERABLE S Performing Organization Address City/[facility]/ZIP Co de Phone Number [facility] [place] [address] * ABORH RECHECK (PATIENT HISTORY FOUND) (09/26/2024 2:39 PM EST) [facility] ABORH Recheck Progress Complete 09/26/2024 5:01 PM EST [facility] Blood VENOUS BLOOD SPECIMEN / Unknown Venipuncture / Unknown 09/26/2024 2:39 PM EST 09/26/2024 2:56 PM EST Marko Dickson MD BLOOD BANK LAB ORDER RANDELL Performing Organization Address City/[facility]/ZIP Co de Phone Number [facility] [place] [address] * (ABNORMAL) Hepatic Function Panel (09/26/2024 2:39 PM EST) [facility] Albumin 3.1(L) 3.2 - 5.2 g/dL 09/26/2024 4:23 PM EST [facility] Aspartate Aminotransferase 16 <=39 unit/L 09/26/2024 4:23 PM EST [facility] Alanine Aminotransferase 14 0 - 55 unit/L 09/26/2024 4:23 PM EST [facility] Alkaline Phosphatase 160(H) 40 - 130 unit/L 09/26/2024 4:23 PM EST [facility] Bilirubin, Total 0.4 <=1.3 mg/dL 09/26/2024 4:23 PM [facility] Bilirubin, Direct 0.2 0.0 - 0.3 mg/dL 09/26/2024 4:23 PM [facility] Protein, Total 7.0 6.1 - 8.0 g/dL 09/26/2024 4:23 PM [facility] Blood VENOUS BLOOD SPECIMEN / Unknown Venipuncture / Unknown 09/26/2024 2:39 PM EST 09/26/2024 2:50 PM EST Marko Dickson MD CHEMISTRY ORDERABLES [facility] [place] [address] * (ABNORMAL) Basic Metabolic Panel (09/26/2024 2:39 PM EST) Glucose 254(H) 65 - 199 mg/dL 09/26/2024 4:32 PM [facility] Comment:Glucose Concentratio n >=200 mg/dL plus symptoms is consistent with Diabetes Mellitus. Blood Urea Nitrogen 9(L) 10 - 20 mg/dL 09/26/2024 4:32 PM [facility] Creatinine 0.55(L) 0.80 - 1.50 mg/dL 09/26/2024 4:32 PM [facility] Sodium 127(L) 135 - 145 mMol/L 09/26/2024 4:32 PM [facility] Potassium 3.4(L) 3.5 - 5.0 mMol/L 09/26/2024 4:32 PM [facility] Chloride 89(L) 98 - 107 mMol/L 09/26/2024 4:32 PM [facility] Carbon Dioxide 25 22 - 31 mMol/L 09/26/2024 4:32 PM [facility] Anion Gap 13 5 - 15 mMol/L 09/26/2024 4:32 PM [facility] Calcium 8.9 8.5 - 10.5 [...] Torres MD CHEMISTRY ORDERABLES [facility] [place] [address] * (ABNORMAL) CBC (with Diff) (09/26/2024 2:39 PM EST) White Blood Cell 22.76(H) 4.00 - 9.50 x10(3)/mc L 09/26/2024 3:21 PM EST [facility] Red Blood Cell 4.20(L) 4.58 - 5.54 x10(6)/mc L 09/26/2024 3:21 PM EST [facility] Hemoglobin 12.3(L) 13.7 - 16.5 g/dL 09/26/2024 3:21 PM [facility] Hematocrit 35.0(L) 40.5 - 48.5 % 09/26/2024 3:21 PM [facility] Mean Cell Volume 83.3 82.9 - 93.1 fL 09/26/2024 3:21 PM [facility] Mean Cell Hemoglobin 29.3 27.5 - 32.1 pg 09/26/2024 3:21 PM [facility] Mean Cell Hemoglobin Concentration 35.1 32.0 - 35.7 g/dL 09/26/2024 3:21 PM [facility] Platelet 277 145 - 357 x10(3)/mc L 09/26/2024 3:21 PM [facility] Mean Platelet Volume 9.6 7.6 - 12.9 fL 09/26/2024 3:21 PM [facility] RDW Standard Deviation 37.9 36.0 - 45.0 fL 09/26/2024 3:21 PM [facility] RDW coefficient of variation 12.6 11.4 - 13.8 % 09/26/2024 3:21 PM [facility] NRBC% auto 0.0 % 09/26/2024 3:21 PM [facility] NRBC Absolute <0.01 <0.01 x10(3)/mc L 09/26/2024 3:21 PM [facility] Neutrophil % 84.0 % 09/26/2024 3:21 PM [facility] Comment:This is an appended report. These results have been appended to a previously preliminary verified report. Neutrophil Absolute (ANC) - Automated 19.10(H) 1.70 - 6.10 x10(3)/mc L 09/26/2024 3:21 PM [facility] Comment:This is an appended report. These results have been appended to a previously preliminary verified report. Lymph % 6.2 % 09/26/2024 3:21 PM [facility] Comment:This is an appended report. These results have been appended to a previously preliminary verified report. Lymph Absolute 1.41 0.90 - 3.20 x10(3)/mc L 09/26/2024 3:21 PM [facility] Comment:This is an appended report. These results have been appended to a previously preliminary verified report. Monocyte % 8.1 % 09/26/2024 3:21 PM [facility] Comment:This is an appended report. These results have been appended to a previously preliminary verified report. Monocyte Absolute 1.85(H) 0.30 - 0.90 x10(3)/mc L 09/26/2024 3:21 PM [facility] Comment:This is an appended report. These results have been appended to a previously preliminary verified report. Eos % 0.0 % 09/26/2024 3:21 PM [facility] Comment:This is an appended report. These results have been appended to a previously preliminary verified report. Eos Absolute <0.04 0.00 - 0.40 x10(3)/mc L 09/26/2024 3:21 PM [facility] Comment:This is an appended report. These results have been appended to a previously preliminary verified report. Basophil % 0.5 % 09/26/2024 3:21 PM [facility] Comment:This is an appended report. These results have been appended to a previously preliminary verified report. Baso Absolute 0.11(H) 0.00 - 0.10 x10(3)/mc L 09/26/2024 3:21 PM [facility] Comment:This is an appended report. These results have been appended to a previously preliminary verified report. Immature Gran % 1.2 % 3:21 PM [facility] Comment:This is an appended report. These results have been appended to a previously preliminary verified report. Immature Gran Absolute 0.28(H) 0.00 - 0.04 x10(3)/mc L 09/26/2024 3:21 PM [facility] Comment:This is an appended report. These results have been appended to a previously preliminary verified report. Blood VENOUS BLOOD SPECIMEN / Unknown Venipuncture / Unknown 09/26/2024 2:39 PM EST 09/26/2024 2:50 PM EST Hayley Torres MD HEMATOLOGY ORDERABLE S Performing Organization Address City/[facility]/ZIP Co de Phone Number [facility] [place] [address] * Phosphorus (09/26/2024 2:39 PM EST) [facility] Phosphorus 3.2 2.5 - 4.5 mg/dL 09/26/2024 4:05 PM EST [facility] Blood VENOUS BLOOD SPECIMEN / Unknown Venipuncture / Unknown 09/26/2024 2:39 PM EST 09/26/2024 2:50 PM EST Marko Dickson MD CHEMISTRY ORDERABLES Performing Organization Address City/[facility]/ZIP Co de Phone Number [facility] [place] [address] * (ABNORMAL) Magnesium (09/26/2024 2:39 PM EST) [facility] Magnesium 0.65(L) 0.69 - 1.07 mMol/L 09/26/2024 4:05 PM EST [facility] Blood VENOUS BLOOD SPECIMEN / Unknown Venipuncture / Unknown 09/26/2024 2:39 PM EST 09/26/2024 2:50 PM EST Marko Dickson MD CHEMISTRY ORDERABLES Performing Organization Address City/[facility]/ZIP Co de Phone Number [facility] [place] [address] * Type and screen [place] (09/26/2024 2:39 PM EST) [facility] ABORH Type A POSITIVE 09/26/2024 3:45 PM EST [facility] PATIENT HISTORY Found 09/26/2024 3:45 PM EST [facility] Expires at [id number] on: 09/29/2024 09/26/2024 3:45 PM EST [facility] ANTIBODY SCREEN AUTOMATED Negative 09/26/2024 3:45 PM EST [facility] T&S only valid at [facility] 09/26/2024 3:45 PM EST [facility] Blood VENOUS BLOOD SPECIMEN / Unknown Venipuncture / Unknown 09/26/2024 2:39 PM EST 09/26/2024 2:56 PM EST Narrative [facility] - 09/26/2024 3:45 PM EST This Type and Screen result is only valid at the [facility] Marko Dickson MD BLOOD BANK LAB ORDER RANDELL Performing Organization Address City/[facility] Co de Phone Number [facility] [place] [address] * (ABNORMAL) Fibrinogen (09/26/2024 2:39 PM EST) Pathologist [facility] Fibrinogen >1,000(H) 200 - 393 mg/dL 09/26/2024 3:09 PM EST [facility] Comment: A fibrinogen level >100 mg/dL is adequate for hemostasis in most patients without underlying bleeding disorders. Blood VENOUS BLOOD SPECIMEN / Unknown Venipuncture / Unknown 09/26/2024 2:39 PM EST 09/26/2024 2:50 PM EST Marko Dickson MD HEMATOLOGY ORDERABLE S Performing Organization Address [facility] de Phone Number [facility] [place] [address] * APTT (09/26/2024 2:39 PM EST) Partial [...] HEMATOLOGY ORDERABLE S Performing Organization Address City/[facility]/ZIP Co de Phone Number [facility] [place] [address] * (ABNORMAL) Prothrombin Time (09/26/2024 2:39 PM EST) [facility] Prothrombin Time 21.6(H) 9.4 - 12.5 sec [...] HEMATOLOGY ORDERABLE S Performing Organization Address City/[facility]/ZIP Co de Phone Number [facility] [place] [place] [address] * (ABNORMAL) POC, GLUCOSE (09/26/2024 2:36 PM EST) [facility] Glucometer, POC 268(H) 65 - 199 mg/dL 09/26/2024 2:36 PM EST [facility] Comment:Supplemental ranges: <140 mg/dL before meals <180 mg/dL all other times of the day. Blood CAPILLARY BLOOD / Unknown 09/26/2024 2:36 PM EST 09/26/2024 2:36 PM EST Marko Dickson MD POINT OF CARE TEST O RDERABLES [facility] [place] [address] * (ABNORMAL) Blood culture (09/26/2024 2:22 PM EST) [facility] Blood Culture Methicillin Resistant Staphylococcus aureus(Critical) VITEK 2 METHOD 10/07/2024 7:40 AM EST [facility] Comment: detected by PCR Isolate saved. If future testing is required, contact the Microbiology [facility]. Gram Stain Aerobic Bottle: Gram positive cocci [...] MICROBIOLOGY - BLOOD ORDERABLES Performing Organization Address City/State/[facility] Co de Phone Number [facility] [place] [address] * Request For 2nd Read CT Lower Extremity (09/26/2024 1:50 PM EST) Pathologist [employer] WORKSTATION ID [id number] RAD Anatomical Region Laterality Modality Hip, Leg, [...] have questions please contact the health healthcare technician that requested your imaging first. ? Narrative 09/26/2024 3:01 PM EST EXAMINATION: REQUEST FOR 2ND READ CT LOWER EXTREMITY CLINICAL HISTORY: Pt s/p LLE femoral-below knee popliteal bypass with PTFE graft, c/f infection surrounding graft, [place] [facility] [place] possible [place]; Sending Institution [facility]; Date of exam [id number]; I believe a [...] on series 3, image 8 and 641, 752, 346, 872. No other rim-enhancing fluid collection is seen. [...] There are bilateral vasectomy clips. Procedure Note Sin, Lisette Skinner MD - 09/26/2024 EXAMINATION: REQUEST FOR 2ND READ CT LOWER EXTREMITY CLINICAL HISTORY: Pt s/p LLE femoral-below knee popliteal bypass withPTFE graft, c/f infection surrounding graft, [place] [facility] [place]; Sending Institution [facility]; Date of exam [id number]; Ibelieve a reinterpretation [...] on series 3, image 8 and 641, 002,918, 502. No other rim-enhancing fluid collection is seen. [...] who have questions please contactthe health healthcare technician that requested your imaging first. Marko Dickson [...] Lauren Zavala RN)1107 (Given - Provider: Terell Araiza, RN) aspirin [...] 2115 (New Bag - Provider: Lauren Zavala, DAVID)214 (Stopped - Provider: Lauren Zavala RN) DAPTOmycin [...] the most appropriate choice: ID Approval by Amyaa Hernandez 1446 (New Bag - Provider: Terell [...] Navas, DAVID) 0615 (Given - Provider: Jordyn Navas RN)1415 (Given - Provider: Indira Tracey RN)2116 (Given [...] RN)2029 (Given - Provider: Jordyn Navas RN) 0904 (Given - Provider: Jaja Diallo, DAVID)202 (Given [...] DAVID) 0035 (Given - Provider: Jordyn Navas, RN)0400 (Not Given - Provider: Jordyn Navas, RN - Reason: Patient/family refused)0903 (Given - [...] 0859 (Given - Provider: Indira Tracey RN) 09 (Given - Provider: Jaja Diallo, DAVID) 0832 [...] Diallo, DAVID) 0831 (Given - Provider: Terell Araiza RN) polyethylene glycoL (Miralax) packet 17 g 17 g, Oral, 2 TIMES DAILY, First dose (after last modification) on 10/07/24 at 0915, Until Discontinued, Routine 0900 (Not Given - Provider: Indira Tracey RN - Reason: Patient/family refused)2100 (Not Given - Provider: Jordyn Navas RN - Reason: Patient/family refused) 0900 (Not Given - Provider: Jaja Diallo, DAVID - Reason: Patient/family refused)2100 (Not Given - [...] 0902 (Given - Provider: Jaja Diallo RN) 0832 (Given - Provider: Terell Araiza [...] Routine documented in this encounter Care Teams Yarn Texturing Machine Operator Relationship Specialty Start Date End Date Charles Romero [place] [address] PCP - General Internal Medicine 09/18/24 documented as of this encounter
--- OUTSIDE RECORDS SUMMARY | 2024-10-20 12:42 | XMS_ITS | Encounter Summary ---
Author Organization [facility] Address [facility] [place] [address] Care Team Providers Care Jacquard Plate Maker Name Role Phone Charles Romero Primary Care Provider + Encounter Details Date Type Department Care Team (Late st Contact Info) Description 09/29/2024 11:59 PM EST Anesthesia [place] [address] Penny Mathias MD [facility] [place] [address] Anesthesia Record Procedure Summary Procedure Name Responsible Anesthesiologist Anesthesia Start Time Anesthesia Stop Time DEBRIDEMENT SKIN AND SUBCU, LOWER EXTREMITY (WRVU 1.01) (Left) Events No events on file. Meds * [...] calf incision 10/04/24 1557 by Linda Pollock strap machine operator automatic 10/06/24; 0900; Left , anterior, distal; thigh; other (see comments) (vertical yung drain site); Yung drain site 10/06/24 0900 by Liana Mccormack V RN documented in this encounter Social History Tobacco Use Types Packs/Day Years Used Date Smoking Tobacco: Every Day Cigarettes 1 25 Started: 12/28/1986; Last attempted to quit: 12/28/2011 Smokeless Tobacco: Never Alcohol Use Standard Drinks/Week Comments No 0 (1 standard drink = 0.6 oz pur e alcohol) [facility] Utilities Answer Date Recorded In the past 12 months has th e [employer], gas, oil, or water [employer] threatened to shut off services in your [...] in a care home (including now)? No 09/27/2024 IPV Inpatient Questions [...] 10/23/2024 1:00 PM EST Appointment XRay at [address] [place] [address] Isabela Hayward, [facility] [place] [address] 11/09/2024 1:30 PM EST Office Visit Infectious Disease at [place] [phone] Isabela Hayward, [facility] [place] [address] 11/10/2024 10:00 AM EST Office Visit Vascular Surgery at [place] [phone] Dai Whitman APRN 11/21/2024 2:15 PM EST Office [place] [phone] Dayanara Grover MD [facility] [place] [address] documented as of this encounter Visit Diagnoses Not on filedocumented in this encounter Care Teams Jacquard Plate Maker Relationship Specialty Start Date End Date Charles [place] [address] PCP - General Internal Medicine 09/18/24 documented as of this encounter
--- OUTSIDE RECORDS SUMMARY | 2024-10-20 12:44 | XMS_ITS | Encounter Summary ---
Author Organization Formerly [facility] [place] [address] Care Team Providers Care Wire Preparation Worker Name Role Phone Charles Romero Primary Care Provider + Reason for Visit * Auth/Cert (Routine) Specialty Diagnoses / Procedures Referred By William moses Referred To Contact Diagnoses Vascular graft infection, initial encounter Sepsis [A41.9] T82.7XXA Procedures EMERGENCY IPI Angel Gonsalez MD [facility] [place] [address] [facility] Referral ID Status Reason Start Date Expiration Date Visits Re quested Visits Authorized [id number] 1 1 Encounter Details Date Type Department Care Team (Late st Contact Info) Description 09/28/2024 11:29 AM EST Anesthesia [place] [address] Isabel Longoria MD [facility] [place] [address] Anesthesia Record Procedure Summary Procedure Name Responsible Anesthesiologist Anesthesia Start Time Anesthesia Stop Time REV. FEM. ANASTOMOSIS OF SYN. BYPASS GRAFT USING NONAUTOGENOUS PATCH ANGIOPLASTY-JENNIFER (WRVU 23.15) (Left: Leg) Isabel Longoria MD 09/28/24 1129 09/28/24 1641 Events Date Time Event Comment 09/28/2024 0951 1129 AN Verify 1129 Start 1129 An Start Data 1141 An Induction 1143 An Intubation 1200 Break/Relief In I assumed ca re for Break Relief before which we: 1. Identified the patient 2. Identified the responsible provider(s) 3. Reviewed the pertinent medical history 4. Discussed the surgical plan and course 5. Reviewed intra-op anesthesia management and issues during anesthesia 6. Set expectations for the relief (and/or post-procedure) period 7. Allowed opportunity for questions and acknowledgement of understanding Yamilex Souza CRNA 1201 Anesthesia Ready 1219 Procedure Start 1236 Break/Relief Out 1249 Vascular Clamp ON 1445 Vascular Clamp OFF 1632 Extubation/LMA Out 1634 an stop data 1641 Recovery or ICU Handoff Bronwyn ent care was transferred to the destination unit staff after review of the patient's medical history, current anesthetic/surgical status and plan, according to the Provider Handoff Checklist. 1641 Stop Meds Name Total fentaNYL 100 mcg lidocaine IV 100 mg propofoL 270 mg dexmedeTOMIDine 4 mcg/mL 40 mcg rocuronium 110 mg sugammadex 200 mg PHENYLephrine 320 mcg dexAMETHasone 4 mg ondansetron 4 mg HYDROmorphone 2 mg heparin 14,000 Units protamine 40 mg lactated ringers 1,300 mL * Agents Name O2 * Blood [...] by Liana Mccormack RN PIV 09/26/24; 1200; eeuo-ezb-jwsngg catheter system; 18 gauge; median cubital vein (antecubital fossa), left; [facility]; site symptomatic; 10/04/24; 1100 09/26/24 1200 by Pamela Eli RN 10/04/24 1100 by Liana Mccormack RN PIV 09/26/24; 1534; 20 gauge; basilic vein (medial side of arm), right; site symptomatic; 10/04/24; 1100 09/26/24 1534 by Pamela Eli RN 10/04/24 1100 by Liana Mccormack RN PIV 09/26/24; 1620; pdmr-jpk-fhuzoz catheter system; 14 gauge; median cubital vein (antecubital fossa), right; Ultrasound Guidance; Pat Esther; 10/02/24; 1000 09/26/24 1620 by Jules Christopher CRNA 10/02/24 1000 by Cyndi Castro RN Urethral Catheter 09/26/24; 1620; Surg wei longer than 2 hours, Physician order, Need for intraoperative urine output monitoring; Immobility without alternative; indwelling double lumen catheter; hydrophilic coated, latex; 14; inserted at [facility]; 1; 5; 10; none; drainage bag; 10/03/24; [...] RN 09/29/24 1446 by Linda Pollock RN ETT Mask Ventilation: Adjunct (2); ETT Type: Cuffed, Oral; ETT Size: 7.5 mm; Mac Blade: 4; Notes: Asleep, Pre-O2, Stylette; Attempts: 1; Laryngoscopy Grade: 1; ETT Placement Verified By: Auscultation, Capnometry, Visual; Secured at Teeth: 22 cm; Inserted by: rudolph; Removal Date: 09/28/24; Removal Time: 1631 09/28/24 1143 by Yamilex Souza, SHELL CORE AND MOLDING SUPERVISOR 09/28/24 1631 by Yamilex Souza CRNA Arterial Line 09/28/24; 1200; radi al artery, left; placed in OR; 10/01/24; 1017 09/28/24 1200 by Candie Plata RN 10/01/24 1017 by Cyndi Castro RN Incision 09/28/24; 1329; Left , medial, upper; leg; vertical; duplicate wound; 10/05/24; 1019 09/28/24 1329 by Smooth Parson RN 10/05/24 1019 by Liana Mccormack V, RN documented in this encounter Social History Tobacco Use Types Packs/Day Years Used Date Smoking Tobacco: Every Day Cigarettes 1 25 Started: 12/28/1986; Last attempted to quit: 12/28/2011 Smokeless Tobacco: Never Alcohol Use Standard Drinks/Week Comments No 0 (1 standard drink = 0.6 oz pur e alcohol) [facility] Utilities Answer Date Recorded In the past 12 months has e electric, gas, oil, or water Shoutly threatened to shut off services in your [...] any time in the past 12 m [facility], were you homeless or living in [...] Postprocedure Evaluation - Isabel Longoria MD - 09/28/2024 5:01 PM EST Department of Anesthesiology Post-procedure Note Patient: Lux Dixon Jr. Procedure Summary Date: 09/28/24 Room / Location: [facility] OR [address] [place] [address] MAIN OR Anesthesia Start: 1129 Anesthesia Stop: 1641 Procedure: REV. FEM. ANASTOMOSIS OF SYN. BYPASS GRAFT USING NONAUTOGENOUS PATCH ANGIOPLASTY-JENNIFER (WRVU 23.15) (Left: Leg) Diagnosis: (Infected explanted left leg bypass graft) Surgeons: Hayley Torres MD Responsible Provider: Isabel Longoria MD Anesthesia Type: general ASA Status: 3 All Anesthesia Providers: Anesthesiologist: Isabel Longoria MD [employer] C[employer] AND MOLDING SUPERVISOR: Yamilex Souza CRNA Vitals Value Taken Time BP Temp 36.9 ??C (98.4 ??F) 09/28/24 1653 Pulse 92 09/28/24 1701 Resp 15 09/28/24 1701 SpO2 93 % 09/28/24 1701 Pain Level 0 09/28/24 1653 Vitals shown include unfiled device data. Patient Location: ICU Level of Consciousness: Conscious but Sleepy Pain Management: Satisfactory Analgesia PONV: None Cardiovascular Status: At Baseline and Hemodynamically Stable Respiratory Status: Supplemental O2 (NC or FM) Postoperative Fluid Status: Intravascular EUvolemia Possible Anesthetic Complications: NONE apparent at time of evaluation Final Primary Anesthesia Type: General (The anesthetic type performed was the same as planned.) Comments: Isabel Longoria MD * Anesthesia Preprocedure Evaluation - Isabel Longoria MD - 09/28/2024 8:20 AM EST Pre-Anesthesia Evaluation for: Lux Llanos Zack Ordoñez. a 49 y.o. male. Procedure(s): DEBRIDEMENT SKIN AND SUBCU, LOWER EXTREMITY (WRVU 1.01) Patient Active Problem List Diagnosis Date Noted [...] 3.51) performed by Thony Garcia MD at [facility] MAIN OR PRO BYPASS GRAFT OTHR, FEM-TIBIAL Left 08/01/2024 @BYPASS GRAFT, FEM-ANT TIBIAL, -POST TIBIAL, -PERONEAL, -DP W\ SYNTHETIC CONDUIT (WRVU 23.66) performed by Lisette Maldonado MD at [facility] MAIN OR PRO CABG, ARTERY-VEIN, SINGLE 01/04/2012 @CABG, VENOUS & ARTERIAL GRAFT;SINGLE VEIN GRAFT performed by INNA TOVAR at [facility] MAIN OR PRO ENDOSCOPY W/VIDEO-ASST VEIN HARVEST, CABG 01/04/2012 ENDOSCOPIC HARVEST VEIN(S) FOR CABG performed by INNA TVOAR at [facility] MAIN OR PRO EXCISION, INFEC GRAFT, EXTREMITY Left 09/26/2024 EXCISION OF INFECTED GRAFT FROM LOWER EXTREMITY (WRVU 9.53) performed by Hayley Torres MD at [facility] MAIN OR VS ARTERIOGRAM LOWER EXTREMITY VASCULAR SURGERY 07/20/2024 VS Arteriogram Lower Extremity Vascular Surgery 07/20/2024 Taylor Ruiz MD [facility] INTERVENTIONL RAD Social History Tobacco [...] Physical Exam: Preprocedure Vitals Current as of 09/27/24 1437 BP: Pulse: 110 Resp: 19 SpO2: 94 Temp: 37.1 ??C (98.8 ??F) Height: 179.1 cm (5' 10.51) (09/26/24) Weight: 101.8 kg (224 lb 6.9 oz) (09/27/24) BMI: 31.74 IBW: 74.2 kg (163 lb 8.5 oz) Last edited 09/27/24 1400 by Airway Assessment: Mallampati: II TM distance: >3 FB Neck ROM: full Cardiovascular Assessment: Rhythm: regular Rate: normal Pulmonary Assessment: unlabored breathing Dental Assessment: (+) edentulous Misc Assessment: IV access: Peripheral line Last Filed Perioperative Cognitive Screening Value Time User 4AT TOTAL Score: 0 05/31/2024 7:25 PM Maribel Quinn RN Anesthesia Plan: ASA 3 general, with a(n) intravenous induction 49M with CAD s/p 2v CABG (2011, SVG to PDA known closed 08/2013), HTN, HLD, DM2, (SGLT2i), depression, tobacco use, cocaine use, obesity BMI 33, narcolepsy, and chronic limb ischemia of LLE s/p toe amps and LLE bypass graft now admitted with graft infection s/p explant and washout on 09/26 & 09/27 now returning for further graft removal. HDS, On RA. Labs wbc 17.15, Hgb 10.4, Cr 0.48, Na 131, last K 2.9 (repleted) On Vanc (given at 8am next dose 4pm). Cultures growing MRSA. NPO appropriate. Plan for GA w/ ETT, PIV x3, A-line to be replaced for surgery. Serial consented. Region - Other Informed Consent: Anesthetic plan and risks discussed with patient. Plan discussed with SHELL CORE AND MOLDING SUPERVISOR. Anesthesia Screening documented in this encounter Plan of Treatment Upcoming Encounters Date Type Department Care Team (Late st Contact Info) Description 10/23/2024 1:00 PM EST Appointment XRay at [address] [place] [phone] Isabela Hayward, [facility] [place] [address] 11/09/2024 1:30 PM EST Office [place] [phone] Isabela Hayward, [facility] [place] [address] 11/10/2024 10:00 AM EST Office [place] [phone] Dai Whitman APRN 11/21/2024 2:15 PM EST Office [place] [phone] Dayanara Grover MD [facility] [place] [address] documented as of this encounter Visit Diagnoses Not on filedocumented in this encounter Administered Medications Inactive Administered Medications - up to 3 most recent administrations Medication Order MAR Action Action Date Dose Rate Site dexAMETHasone (Decadron) injection Intravenous, PRN, Starting on Angelita 09/28/24 at 1158, Until Angelita 09/28/24 at 1645, Anesthesia Intra-op, Routine Given 09/28/2024 11:58 AM EST 4 mg dexmedeTOMIDine (Precedex) (4 mcg/mL) bolus injection (Anesthsia) Intravenous, PRN, Starting on Angelita 09/28/24 at 1216, Until Angelita 09/28/24 at 1645, Anesthesia Intra-op, Routine Given 09/28/2024 2:41 PM EST 8 mcg Given 09/28/2024 2:38 PM EST 12 mcg Given 09/28/2024 12:19 PM EST 8 mcg fentaNYL (pf) (50 mcg/mL) multi-dose injection Intravenous, PRN, Starting on Angelita 09/28/24 at 1131, Until Angelita 09/28/24 at 1645, Anesthesia Intra-op, Routine Given 09/28/2024 11:31 AM EST 100 mcg heparin (porcine) (1,000 units/mL) injection Intravenous, PRN, Starting on Angelita 09/28/24 at 1350, Until Angelita 09/28/24 at 1645, Anesthesia Intra-op, Routine Given 09/28/2024 2:29 PM EST 2,000 Uni ts Given 09/28/2024 1:58 PM EST 3,000 Units Given 09/28/2024 1:50 PM EST 9,000 Units HYDROmorphone (Dilaudid) (2 mg/mL) multi-dose injection solution Intravenous, PRN, Starting on Angelita 09/28/24 at 1221, Until Angelita 09/28/24 at 1645, Anesthesia Intra-op, Routine Given 09/28/2024 3:45 PM EST 0.5 mg Given 09/28/2024 2:26 PM EST 0.25 mg Given 09/28/2024 2:14 PM EST 0.25 mg lactated ringers infusion Intravenous, CONTINUOUS PRN, Starting on Angelita 09/28/24 at 1130, Until Angelita 09/28/24 at 1645, Anesthesia Intra-op New Bag 09/28/2024 11:30 AM EST lidocaine (pf) (Xylocaine) (20 mg/mL) 2% injection syringe Intravenous, PRN, Starting on Angelita 09/28/24 at 1138, Until Angelita 09/28/24 at 1645, Anesthesia Intra-op, Routine Given 09/28/2024 11:41 AM EST 100 mg ondansetron (pf) (Zofran) (2 mg/mL) injection Intravenous, PRN, Starting on Angelita 09/28/24 at 1532, Until Angelita 09/28/24 at 1645, Anesthesia Intra-op, Routine Given 09/28/2024 3:32 PM EST 4 mg PHENYLephrine in NS (PF) (ADONAY-SYNEPHRINE) 0.8 mg/10 mL (80 mcg/mL) multi-dose injection Syringe Intravenous, PRN, Starting on Angelita 09/28/24 at 1151, Until Angelita 09/28/24 at 1645, Anesthesia Intra-op, Routine Given 09/28/2024 3:00 PM EST 80 mcg Given 09/28/2024 1:37 PM EST 80 mcg Given 09/28/2024 11:51 AM EST 80 mcg propofoL (Diprivan) 10 mg/mL bolus injection (Anesthesia) Intravenous, PRN, Starting on Angelita 09/28/24 at 1138, Until Angelita 09/28/24 at 1645, Anesthesia Intra-op Given 09/28/2024 3:45 PM EST 70 mg Given 09/28/2024 11:41 AM EST 200 mg protamine (10 mg/mL) injection Intravenous, PRN, Starting on Angelita 09/28/24 at 1458, Until Angelita 09/28/24 at 1645, Anesthesia Intra-op, Routine Given 09/28/2024 2:58 PM EST 40 mg rocuronium (Zemuron) (10 mg/mL) multi-dose injection Intravenous, PRN, Starting on Angelita 09/28/24 at 1219, Until Angelita 09/28/24 at 1645, Anesthesia Intra-op, Routine Given 09/28/2024 2:51 PM EST 10 mg Given 09/28/2024 2:15 PM EST 10 mg Given 09/28/2024 1:24 PM EST 20 mg sugammadex (Bridion) 100 mg/mL injection Intravenous, PRN, Starting on Angelita 09/28/24 at 1620, Until Angelita 09/28/24 at 1645, Anesthesia Intra-op, Routine Given 09/28/2024 4:20 PM EST 200 mg documented in this encounter Care Teams Wire Preparation Worker Relationship Specialty Start Date End Date Charles Romero PA [facility] [place] [address] PCP - General Internal Medicine 09/18/24 documented as of this encounter
--- OUTSIDE RECORDS SUMMARY | 2024-10-20 12:44 | XMS_ITS | Encounter Summary ---
Author Organization [facility] [place] [address] Care Team Providers Care Research Animal Facility Supervisor Name Role Phone Charles Romero Primary Care Provider + Reason for Visit * Auth/Cert (Routine) Specialty Diagnoses / Procedures Referred By William moses Referred To Contact Diagnoses Vascular graft infection, initial encounter Sepsis [A41.9] T82.7XXA Procedures EMERGENCY IPI Angel Gonsalez MD [facility] [place] [address] [facility] Referral ID Status Reason Start Date Expiration Date Visits Re quested Visits Authorized [id number] 1 1 Encounter Details Date Type Department Care Team (Late st Contact Info) Description 09/29/2024 2:11 PM EST - 09/29/2024 3:47 PM EST [place] [address] Anabel Finney MD [facility] [place] [address] @EXPLORATION W\O SURGICAL REPAIR, FEMORAL ARTERY - JENNIFER (WRVU 7.5) Social History Tobacco Use Types Packs/Day Years Used Date Smoking Tobacco: Every Day Cigarettes 1 Started: 12/28/1986; Last attempted to quit: 12/28/2011 Smokeless Tobacco: Never Alcohol Use Standard Drinks/Week Comments No 0 (1 standard drink = 0.6 oz pur e alcohol) [facility] Utilities Answer Date Recorded In [...] any time in the past 12 m [facility], were you homeless or living in a alf (including now)? No 09/27/2024 DH IPV Inpatient [...] Sign Reading Time Taken Comments Blood Pressure 130/81 09/28/2024 10:00 AM EST Pulse 81 09/29/2024 3:40 PM EST Temperature 36.5 ??C (97.7 ??F) 09/29/2024 3:40 PM ES T Respiratory Rate 20 09/29/2024 3:40 PM EST Oxygen Saturation 94% 09/29/2024 3:40 PM EST Inhaled Oxygen Concentration - - Weight 104.1 kg (229 lb 8 oz) 09/29/2024 12:00 A M EST Height 179.1 cm [...] Operations/Major Procedures: 09/26/24: Explant of infected LEFT TICK INSPECTOR to below-knee popliteal artery PTFE bypass graft [...] sites Surgeon: Surgeons and Role: * Hayley Torrse MD - Primary * Cristino Meeks MD [...] Depression Narcolepsy History of Presentation: Geovanna Dixon JrFlorencio is a 49 y.o. male with a history of HTN, HLD, NSTEMI, CAD s/p CABG (12/2011), DM,obesity, PAD s/p L iliofem endart and L fem-BK pop bypass and L 2nd toe amputation who was transferred from [facility] given concern for infected left fem-BK [...] pericardial patch and PTFE willard over the TICK INSPECTOR was unincorporated. - Resection of prior femoral [...] 2 tablespoons of dried fruit. Milk and lq-jjzkh-ixzpl yogurt have 15 grams of carbs in a serving. A serving is 1 cup of milk or 3/4 cup (6 oz) of eq-fkais-keymz yogurt. Starchy vegetables have 15 grams of carbs in a serving. A serving is ?? cup of mashed potatoes or sweet potato; 1 cup winter squash; ?? of a small baked potato; ?? cup of cooked beans; or ?? cup cooked corn or green peas. Learn how much carbs to eat each day and at each meal. A dietitian or certified bench jeweler technician can teach you how to keep track [...] was scheduled for a f/u nutrition evaluation. Operational Risk Analyst met pt at bedside. Pt sharedthat his [...] Based on current findings- home (sister & kckqvzf-nn-bwm's home) Consult Recommendations: No other consults recommended [...] Loss: None Karolyn Hudson MD Vascular Surgery, 2366 10/09/24 Important Studies and Lab Data: Labs: [...] 05/29/2024, no significant changes. Procedure Limited - 37521. Doppler - 22014. Color Doppler - 96792. Suboptimal quality. This study is limited because [...] on series 3, image 8 and 641, 972, 484, 422. No other rim-enhancing fluid collection is seen. [...] wedged between the vastus medialis and adductor Dyess muscle. This tracks into the popliteal fossa [...] PM Isabela Hayward APRN Infectious Disease at [facility] Arrive at: Home [phone] To view instructions for your video visit, click here, or visit this website: [email or web address]. If you have not previously downloaded the [facility] patient portal software, Kerecis, please do so by clicking one of the links below or searching in your device's lobito store. [employer] 11/09/2024 1:30 PM Isabela Hayward APRN Infectious Disease at [facility] Arrive at: On Air Director Area [phone] 11/21/2024 2:15 Dayanara Nascimento MD Endocrinology at [facility] Arrive at: On Air Director Area 3A [phone] Future Orders Complete By Expires CBC (with Diff) [[id number] Custom] 10/17/2024 12/11/2024 Process Instructions: INCLUDES: WBC, RBC, Hgb, Hct, Platelets, RBC Indices and Differential Scheduling Instructions: Comments: Questions: OPAT: Order / Recommendation for Post Discharge IV Antibiotic Management [LQF833 CPT(R)] As directed Process Instructions: If no progress note charted, please enter Clinical details in comments. Scheduling Instructions: Comments: - If this order was signed greater than 72 hours prior to [facility] discharge, please call to confirm the accuracy of this order. Please Fax all results to: OPAT Program Infectious Disease Section [facility], [place] [address] FAX: - After hours, please contact the Infectious Disease Physician industrial organizational psychologist at . - Line care instructions - see flush/heparin orders. Facilities may follow organizational policies/practices regarding heparin. - prison for medication administration/monorail hooker and catheter care/maintenance authorized. - CVC/PICC Dressing Change weekly and PRN Please use CHG or Bio Patch RN: Please care for PICC line including dressing changes weekly and prn. Please draw labs every Wednesday and PRN and [facility] at [phone]. Please draw labs off PICC line. [facility]. Please RN visit for IV ABX teaching and ongoing assessment. Snf for Medication Administration/Hookup and catheter care/maintenance: - Teach Patient/Caregiver goals/self-monitoring/therapy administration to independence per the Nursing Care Plan. - prison visit frequency; initial, weekly and 2 PRN [...] Amaya Hernandez MD Referral for Outpatient Antibiotics [FWK9165 CPT(R)] As directed Process Instructions: Scheduling Instructions: [...] Jr. for admission to Home Health. [address] [facility] [address] Phone Number: [phone] (home) Date of : 1975 Inpatient DOCUMENTATION FOR VNA SERVICES (INCLUDING THOSE PATIENTS WITH MEDICARE COVERAGE REQUIRING HOME VNA SERVICES AND/OR HOSPICE SERVICES) PATIENT'S LOCATION: Geovanna Dixon Jr. [address] [facility] [address] [phone] (home) Cell: Telephone Information: Fishing Line Winding Machine Operator's Name: Geovanna In discussion with the attending physician, it is certified that this patient is under their care and that they, or a Nurse Practitioner, Clinical Nurse specialist or Physician Controller Operations And Hr Manager who is working directly with them, had [...] for managing ADLs. HOME HEALTH CARE AGENCY: [facility] [address] [place] [address] START OF CARE: within 24-48 hours of discharge Patient has Medicare Please note that any additional orders needs or changes will need to be obtained from this patient's PCP: JUSTIN Roberson [address] [facility] [address] . All VNA agencies which cover the area of patient's residence have been reviewed, either verbally or in writing, andpatient/family have chosen the home health care agency noted. Questions: Disciplines Requested: Nursing Physical Therapy Occupational Therapy Recurring Lab Work Interval Expires CBC (with Diff) [[id number] Custom] Once a week until 12/10/2024 12/10/2024 [...] For any problems or questions please call [phone] For issues on weeknights after 5pm and weekends please call [phone] and ask for the Vascular Fellow industrial organizational psychologist. Discharge Medications: Your Medications New Medications Dose [...] See Instructions). FLUSH PROTOCOL WITH MEDICATIONS ([facility]): Before med infusion: flush with NS [...] can get this completed at 3L at [facility] prior to your scheduled appointment. Stop atorvastatin [...] For any problems or questions please call [phone] For issues on weeknights after 5pm and weekends please call [phone] and ask for the Vascular Fellow industrial organizational psychologist. documented in this encounter Discharge Instructions * [...] 2 tablespoons of dried fruit. Milk and px-ubsfp-pshgn yogurt have 15 grams of carbs in a serving. A serving is 1 cup of milk or 3/4 cup (6 oz) of id-mspto-yvoso yogurt. Starchy vegetables have 15 grams of carbs in a serving. A serving is ?? cup of mashed potatoes or sweet potato; 1 cup winter squash; ?? of a small baked potato; ?? cup of cooked beans; or ?? cup cooked corn or green peas. Learn how much carbs to eat each day and at each meal. A dietitian or certified bench jeweler technician can teach you how to keep track [...] can get this completed at 3L at [facility] prior to your scheduled appointment. Stop atorvastatin [...] For any problems or questions please call [phone] For issues on weeknights after 5pm and weekends please call [phone] and ask for the Vascular Fellow industrial organizational psychologist. documented in this encounter Medications at Time [...] See Instructions). FLUSH PROTOCOL WITH MEDICATIONS ([facility]): Before med infusion: flush with NS [...] See Instructions). FLUSH PROTOCOL WITH MEDICATIONS ([facility]): Before med infusion: flush with NS [...] to contact. Reviewed roles and responsibilities of HAND SIZER and infusion vendor. Contact information for ID and Vascular team/clinic, HAND SIZER and infusion vendor given to pt. Discussed f/u appointments in ID 5C clinic, telephone and tele health. Pt verbalized understanding. All questions answered. IV & PO ABX Medications: Daptomycin 700mg IV daily Start/anticipated end date: 10/10/24-11/10/24 HAND SIZER: [facility] Infusion vendor: [employer] [facility] IV Access: 4 Fr. single lumen [...] 2 tablespoons of dried fruit. Milk and ye-ibblm-gxtuu yogurt have 15 grams of carbs in a serving. A serving is 1 cup of milk or 3/4 cup (6 oz) of zp-gxfun-uhwli yogurt. Starchy vegetables have 15 grams of carbs in a serving. A serving is ?? cup of mashed potatoes or sweet potato; 1 cup winter squash; ?? of a small baked potato; ?? cup of cooked beans; or ?? cup cooked corn or green peas. Learn how much carbs to eat each day and at each meal. A dietitian or certified bench jeweler technician can teach you how to keep track [...] this time. OT to complete orders. Pager: [phone] Fabián Burrows OT 10/09/2024 Occupational Therapy Rehabilitation [...] 2nd toe amputation who was transferred from [facility], 09/26/24 given concern for infected left fem-BK popliteal PTFE bypass. He is now s/p an explant of an infected left femoral-below knee popliteal artery bypass graft (09/26), I/D groin abscess (09/27), L GSV harvest, vein patch angioplasty, L TICK INSPECTOR and BK pop w/ sartorius flap L fem, I/D, 09/29 L sartorius flap revision, vac change. 10/03/24 NPO at [facility] for OR wound exploration. Wound vac off [...] He mentions he'll stay with sister and owmnlen-ly-lmk upon DC. Pt resting in bed upon [...] up with R and down with L, dimo-qh-uuru. Balance: Sitting: NORMAL- EOB unsupported good postural [...] Based on current findings- home (sister & oltqmva-iq-hue's home) Consult Recommendations: No other consults recommended [...] 15 (TE-F) minutes TERRY JIMENEZ PT Pager: [phone] Physical Therapy Inpatient Rehabilitation Department * María [...] 2nd toe amputation who was transferred from [facility] given concern for infected left fem-BK [...] smoking 1 week ago. He presented to [facility] on 09/26 and went to the OR [...] Procedure Component Value - Date/Time Blood culture [[id number]] (Abnormal) (Susceptibility) Collected: 09/26/24 1422 Lab Status: Edited Result - FINAL Specimen: Blood, Venous Updated: 10/07/24 0740 Blood Culture Methicillin Resistant Staphylococcus aureus Comment: detected by PCR Isolate saved. If future testing is required, contact the Microbiology Brand Marketing Manager. Gram Stain Aerobic Bottle: Gram positive cocci in clusters Susceptibility Methicillin Resistant Staphylococcus aureus MINIMUM INHIBITORY CONCENTRATION VITEK 2 METHOD Clindamycin Resistant Daptomycin Susceptible Gentamicin Susceptible [1] Linezolid Susceptible Oxacillin Resistant Trimethoprim/Sulfa Susceptible Vancomycin Susceptible [1] Gentamicin is not appropriate for monotherapy for gram-positive infections. AFB culture [[id number]] Collected: 09/27/24 1654 Lab Status: Preliminary result Specimen: Tissue from Thigh, Left Updated: 10/05/24 1201 Acid Fast Bacilli Culture No acid fast bacilli isolated at 1 week. Acid Fast Stain No acid fast bacilli seen Blood culture [[id number]] Collected: 09/29/242123 Lab Status: Final result Specimen: Blood, Venous Updated: 10/04/24 2301 Blood Culture No growth at 120 hours Blood culture [[id number]] Collected: 09/29/242123 Lab Status: Final result Specimen: Blood, Venous Updated: 10/04/24 2301 Blood Culture No growth at 120 hours AFB culture [[id number]] Collected: 09/26/24 1702 Lab Status: Preliminary result Specimen: Abscess from Knee, Left Updated: 10/04/24 1201 Acid Fast Bacilli Culture No acid fast bacilli isolated at 1 week. Acid Fast Stain No acid fast bacilli seen Blood culture [[id number]] Collected: 09/28/24 1749 Lab Status: Final result [...] 2nd toe amputation who was transferred from [facility] given concern for infected left fem-BK popliteal PTFE bypass. He is now s/p an explantof an infected left femoral-below knee popliteal artery bypass graft (09/26), I/D groin abscess (), L GSV harvest, vein patch angioplasty, L TICK INSPECTOR and BK pop w/ sartorius flap L fem, I/D, 09/29 L sartorius flap revision, vac change. 10/09/24: Progressing well post surgically. Will pull medial thigh drain today, retain sartorius flap drain along with wound vac x 3 sponges ([facility] has approved for home vac) and WTD [...] PRN PICC dressing change completed as per [facility] protocol. Positive pressure displacement connector (Max Plus) [...] 2nd toe amputation who was transferred from [facility] given concern for infected left fem-BK [...] smoking 1 week ago. He presented to [facility] on 09/26 and went to the OR [...] Procedure Component Value - Date/Time Blood culture [[id number]] (Abnormal) (Susceptibility) Collected: 09/26/24 1422 Lab Status: Edited Result - FINAL Specimen: Blood, Venous Updated: 10/07/24 0740 Blood Culture Methicillin Resistant Staphylococcus aureus Comment: detected by PCR Isolate saved. If future testing is required, contact the Microbiology Brand Marketing Manager. Gram Stain Aerobic Bottle: Gram positive cocci in clusters Susceptibility Methicillin Resistant Staphylococcus aureus MINIMUM INHIBITORY CONCENTRATION VITEK 2 METHOD Clindamycin Resistant Daptomycin Susceptible Gentamicin Susceptible [1] Linezolid Susceptible Oxacillin Resistant Trimethoprim/Sulfa Susceptible Vancomycin Susceptible [1] Gentamicin is not appropriate for monotherapy for gram-positive infections. AFB culture [[id number]] Collected: 09/27/241653 Lab Status: Preliminary result Specimen: Tissue from Thigh, Left Updated: 10/05/24 1201 Acid Fast Bacilli Culture No acid fast bacilli isolated at 1 week. Acid Fast Stain No acid fast bacilli seen Blood culture [[id number]] Collected: 09/29/242123 Lab Status: Final result Specimen: Blood, Venous Updated: 10/04/24 2301 Blood Culture No growth at 120 hours Blood culture [[id number]] Collected: 09/29/242123 Lab Status: Final result Specimen: Blood, Venous Updated: 10/04/24 2301 Blood Culture No growth at 120 hours AFB culture [[id number]] Collected: 09/26/24 1702 Lab Status: Preliminary result Specimen: Abscess from Knee, Left Updated: 10/04/24 1201 Acid Fast Bacilli Culture No acid fast bacilli isolated at 1 week. Acid Fast Stain No acid fast bacilli seen Blood culture [[id number]] Collected: 09/28/24 1749 Lab Status: Final result Specimen: Blood, Venous Updated: 10/03/24 1901 Blood Culture No growth at 120 hours Blood culture [[id number]] (Abnormal) Collected: 09/27/24 2133 Lab Status: Final result Specimen: Blood, Venous Updated: 10/02/24 0804 Blood Culture Methicillin Resistant Staphylococcus aureus Comment: Susceptibilities previously reported. Gram Stain Aerobic Bottle: Gram positive cocci in clusters Tissue Culture, Aerobic & Anaerobic [[id number]] Collected: 09/27/241653 Lab Status: Final result Specimen: Tissue from Thigh, Left Updated: 10/01/24 1554 Narrative: The following orders were created for panel order Tissue Culture, Aerobic & Anaerobic. Procedure Abnormality Status --------- ------ Tissue Culture, Aerobic ...[[id number]] Anaerobic Culture[[id number]] Final result Please view results for these tests on the individual orders. Anaerobic Culture [[id number]] Collected: 09/27/241653 Lab Status: Final result Specimen: Tissue from Thigh, Left Updated: 10/01/24 1554 Anaerobic Culture No anaerobic organisms isolated Tissue Culture, Aerobic Only [[id number]] (Abnormal) (Susceptibility) Collected: 09/27/241653 Lab Status: Final [...] 2nd toe amputation who was transferred from [facility] given concern for infected left fem-BK popliteal PTFE bypass. He is now s/p an explantof an infected left femoral-below knee popliteal artery bypass graft (09/26), I/D groin abscess (), L GSV harvest, vein patch angioplasty, L TICK INSPECTOR and BK pop w/ sartorius flap L [...] 81mg daily Vibha Benson APRN 10/08/2024 Pager: [phone] * Vibha Benson APRN - 10/07/2024 8:52 AM EST Images from the original note were not included. Vascular Surgery Progress Note Geovanna Dixon Jr. is a 49 y.o. 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 He presented to [facility] on 09/26 and went to the OR [...] Procedure Component Value - Date/Time Blood culture [[id number]] (Abnormal) (Susceptibility) Collected: 09/26/24 1422 Lab Status: Edited Result - FINAL Specimen: Blood, Venous Updated: 10/07/24 0740 Blood Culture Methicillin Resistant Staphylococcus aureus Comment: detected by PCR Isolate saved. If future testing is required, contact the Microbiology Brand Marketing Manager. Gram Stain Aerobic Bottle: Gram positive cocci in clusters Susceptibility Methicillin Resistant Staphylococcus aureus MINIMUM INHIBITORY CONCENTRATION VITEK 2 METHOD Clindamycin Resistant Daptomycin Susceptible Gentamicin Susceptible [1] Linezolid Susceptible Oxacillin Resistant Trimethoprim/Sulfa Susceptible Vancomycin Susceptible [1] Gentamicin is not appropriate for monotherapy for gram-positive infections. AFB culture [[id number]] Collected: 09/27/24 165 Lab Status: Preliminary result Specimen: Tissue from Thigh, Left Updated: 10/05/24 1201 Acid Fast Bacilli Culture No acid fast bacilli isolated at 1 week. Acid Fast Stain No acid fast bacilli seen Blood culture [[id number]] Collected: 09/29/242123 Lab Status: Final result Specimen: Blood, Venous Updated: 10/04/24 2301 Blood Culture No growth at 120 hours Blood culture [[id number]] Collected: 09/29/242123 Lab Status: Final result Specimen: Blood, Venous Updated: 10/04/24 2301 Blood Culture No growth at 120 hours AFB culture [[id number]] Collected: 09/26/24 1702 Lab Status: Preliminary result Specimen: Abscess from Knee, Left Updated: 10/04/24 1201 Acid Fast Bacilli Culture No acid fast bacilli isolated at 1 week. Acid Fast Stain No acid fast bacilli seen Blood culture [[id number]] Collected: 09/28/24 1749 Lab Status: Final result Specimen: Blood, Venous Updated: 10/03/24 1901 Blood Culture No growth at 120 hours Blood culture [[id number]] (Abnormal) Collected: 09/27/24 2133 Lab Status: Final result Specimen: Blood, Venous Updated: 10/02/24 0804 Blood Culture Methicillin Resistant Staphylococcus aureus Comment: Susceptibilities previously reported. Gram Stain Aerobic Bottle: Gram positive cocci in clusters Tissue Culture, Aerobic & Anaerobic [[id number]] Collected: 09/27/24 165 Lab Status: Final result Specimen: Tissue from Thigh, Left Updated: 10/01/24 1554 Narrative: The following orders were created for panel order Tissue Culture, Aerobic & Anaerobic. Procedure Abnormality Status --------- ------ Tissue Culture, Aerobic ...[[id number]] Anaerobic Culture[[id number]] Final result Please view results for these tests on the individual orders. Anaerobic Culture [[id number]] Collected: 09/27/24 165 Lab Status: Final result Specimen: Tissue from Thigh, Left Updated: 10/01/24 1554 Anaerobic Culture No anaerobic organisms isolated Tissue Culture, Aerobic Only [[id number]] (Abnormal) (Susceptibility) Collected: 09/27/24 165 Lab Status: [...] is considered susceptible to doxycycline. Blood culture [[id number]] (Abnormal) Collected: 09/26/24 1845 Lab Status: Final result Specimen: Blood, Venous Updated: 10/01/24 0658 Blood Culture Methicillin Resistant Staphylococcus aureus Comment: isolated. Susceptibilities previously reported. Gram Stain Aerobic Bottle: Gram positive cocci in clusters Abscess/Wound Aspirate Culture, Aerobic & Anaerobic [[id number]] (Abnormal) Collected: 09/26/241649 Lab Status: Final result Specimen: Abscess from Groin, Left Updated: 09/30/24 1551 Narrative: The following orders were created for panel order Abscess/Wound Aspirate Culture, Aerobic & Anaerobic. Procedure Abnormality Status --------- ------ Abscess/Wound Aspirate C...[[id number]] Abnormal Final result Anaerobic Culture[[id number]] Final result Please view results for these tests on the individual orders. Anaerobic Culture [[id number]] Collected: 09/26/24 165 Lab Status: Final result Specimen: Abscess from Groin, Left Updated: 09/30/24 1551 Anaerobic Culture No anaerobic organisms isolated Abscess/Wound Aspirate Culture, Aerobic & Anaerobic [[id number]] (Abnormal) Collected: 09/26/24 1702 Lab Status: Final result Specimen: Abscess from Knee, Left Updated: 09/30/24 1551 Narrative: The following orders were created for panel order Abscess/Wound Aspirate Culture, Aerobic & Anaerobic. Procedure Abnormality Status --------- ------ Abscess/Wound Aspirate C...[[id number]] Abnormal Final result Anaerobic Culture[[id number]] Final result Please view results for these tests on the individual orders. Anaerobic Culture [[id number]] Collected: 09/26/24 1702 Lab Status: Final result Specimen: Abscess from Knee, Left Updated: 09/30/24 1551 Anaerobic Culture No anaerobic organisms isolated Sonicated Tissue/Implant Culture [[id number]] (Abnormal) Collected: 09/26/24 1716 Lab Status: Final result Specimen: Vascular Graft from Leg, Left Updated: 09/30/24 1349 Sonicated Tissue/Implant Culture Methicillin Resistant Staphylococcus aureus Comment: isolated from broth culture. Susceptibilities previously reported. Abscess/Wound Aspirate Culture, Aerobic Only [[id number]] (Abnormal) (Susceptibility) Collected: 09/26/24 170 Lab Status: [...] to doxycycline. Abscess/Wound Aspirate Culture, Aerobic Only [[id number]] (Abnormal) (Susceptibility) Collected: 09/26/24 1650 Lab Status: [...] Studies: - None Assessment & Plan: Geovanna P Zack Jr. is a 49 y.o. male with a history of HTN, HLD, NSTEMI, CAD s/p CABG (12/2011), DM,obesity, PAD s/p L iliofem endart and L fem-BK pop bypass and L 2nd toe amputation who was transferred from [facility] given concern for infected left fem-BK popliteal PTFE bypass. He is now s/p an explantof an infected left femoral-below knee popliteal artery bypass graft (09/26), I/D groin abscess (), L GSV harvest, vein patch angioplasty, L TICK INSPECTOR and BK pop w/ sartorius flap L [...] 81mg daily Vibha Benson APRN 10/07/2024 Pager: [phone] * Karina-Jessica Mcrae, PT - 10/06/2024 3:21 PM EST 10/06/24 5933 Evaluation & Treatment Document Type contact Comment, [...] Iniguez MD General Surgery 10/06/2024 11:06 AM Benjamin Noriega MD - 10/06/2024 11:03 AM EST Images from the original note were not included. Vascular Surgery Progress Note Geovanna Dixon Jr. is a 49 y.o. 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 He presented to [facility] on 09/26 and went to the OR [...] Procedure Component Value - Date/Time AFB culture [[id number]] Collected: 09/27/241653 Lab Status: Preliminary result Specimen: Tissue from Thigh, Left Updated: 10/05/24 1201 Acid Fast Bacilli Culture No acid fast bacilli isolated at 1 week. Acid Fast Stain No acid fast bacilli seen Blood culture [[id number]] Collected: 09/29/242123 Lab Status: Final result Specimen: Blood, Venous Updated: 10/04/24 2301 Blood Culture No growth at 120 hours Blood culture [[id number]] Collected: 09/29/242123 Lab Status: Final result Specimen: Blood, Venous Updated: 10/04/24 2301 Blood Culture No growth at 120 hours AFB culture [[id number]] Collected: 09/26/24 170 Lab Status: Preliminary result Specimen: Abscess from Knee, Left Updated: 10/04/24 1201 Acid Fast Bacilli Culture No acid fast bacilli isolated at 1 week. Acid Fast Stain No acid fast bacilli seen Blood culture [[id number]] Collected: 09/28/24 1749 Lab Status: Final result Specimen: Blood, Venous Updated: 10/03/24 1901 Blood Culture No growth at 120 hours Blood culture [[id number]] (Abnormal) Collected: 09/27/242132 Lab Status: Final result Specimen: Blood, Venous Updated: 10/02/24 0804 Blood Culture Methicillin Resistant Staphylococcus aureus Comment: Susceptibilities previously reported. Gram Stain Aerobic Bottle: Gram positive cocci in clusters Tissue Culture, Aerobic & Anaerobic [[id number]] Collected: 09/27/241653 Lab Status: Final result Specimen: Tissue from Thigh, Left Updated: 10/01/24 1554 Narrative: The following orders were created for panel order Tissue Culture, Aerobic & Anaerobic. Procedure Abnormality Status --------- ------ Tissue Culture, Aerobic ...[[id number]] Anaerobic Culture[[id number]] Final result Please view results for these tests on the individual orders. Anaerobic Culture [[id number]] Collected: 09/27/241653 Lab Status: Final result Specimen: Tissue from Thigh, Left Updated: 10/01/24 1554 Anaerobic Culture No anaerobic organisms isolated Tissue Culture, Aerobic Only [[id number]] (Abnormal) (Susceptibility) Collected: 09/27/24 1654 Lab Status: [...] is considered susceptible to doxycycline. Blood culture [[id number]] (Abnormal) (Susceptibility) Collected: 09/26/24 1422 Lab Status: Edited Specimen: Blood, Venous Updated: 10/01/24 0658 Blood Culture Methicillin Resistant Staphylococcus aureus Comment: detected by PCR Isolate saved. If future testing is required, contact the Microbiology Brand Marketing Manager. Gram Stain Aerobic Bottle: Gram positive cocci in clusters Susceptibility Methicillin Resistant Staphylococcus aureus VITEK 2 METHOD Clindamycin Resistant Gentamicin Susceptible [1] Linezolid Susceptible Oxacillin Resistant Trimethoprim/Sulfa Susceptible Vancomycin Susceptible [1] Gentamicin is not appropriate for monotherapy for gram-positive infections. Blood culture [[id number]] (Abnormal) Collected: 09/26/24 1845 Lab Status: Final result Specimen: Blood, Venous Updated: 10/01/24 0658 Blood Culture Methicillin Resistant Staphylococcus aureus Comment: isolated. Susceptibilities previously reported. Gram Stain Aerobic Bottle: Gram positive cocci in clusters Abscess/Wound Aspirate Culture, Aerobic & Anaerobic [[id number]] (Abnormal) Collected: 09/26/24 165 Lab Status: Final result Specimen: Abscess from Groin, Left Updated: 09/30/24 1551 Narrative: The following orders were created for panel order Abscess/Wound Aspirate Culture, Aerobic & Anaerobic. Procedure Abnormality Status --------- ------ Abscess/Wound Aspirate C...[[id number]] Abnormal Final result Anaerobic Culture[[id number]] Final result Please view results for these tests on the individual orders. Anaerobic Culture [[id number]] Collected: 09/26/24 165 Lab Status: Final result Specimen: Abscess from Groin, Left Updated: 09/30/24 1551 Anaerobic Culture No anaerobic organisms isolated Abscess/Wound Aspirate Culture, Aerobic & Anaerobic [[id number]] (Abnormal) Collected: 09/26/24 1702 Lab Status: Final result Specimen: Abscess from Knee, Left Updated: 09/30/24 1551 Narrative: The following orders were created for panel order Abscess/Wound Aspirate Culture, Aerobic & Anaerobic. Procedure Abnormality Status --------- ------ Abscess/Wound Aspirate C...[[id number]] Abnormal Final result Anaerobic Culture[[id number]] Final result Please view results for these tests on the individual orders. Anaerobic Culture [[id number]] Collected: 09/26/24 170 Lab Status: Final result Specimen: Abscess from Knee, Left Updated: 09/30/24 1551 Anaerobic Culture No anaerobic organisms isolated Sonicated Tissue/Implant Culture [[id number]] (Abnormal) Collected: 09/26/24 1716 Lab Status: Final result Specimen: Vascular Graft from Leg, Left Updated: 09/30/24 1349 Sonicated Tissue/Implant Culture Methicillin Resistant Staphylococcus aureus Comment: isolated from broth culture. Susceptibilities previously reported. Abscess/Wound Aspirate Culture, Aerobic Only [[id number]] (Abnormal) (Susceptibility) Collected: 09/26/24 170 Lab Status: [...] to doxycycline. Abscess/Wound Aspirate Culture, Aerobic Only [[id number]] (Abnormal) (Susceptibility) Collected: 09/26/24 1650 Lab Status: [...] 2nd toe amputation who was transferred from [facility] given concern for infected left fem-BK popliteal PTFE bypass. He is now s/p an explantof an infected left femoral-below knee popliteal artery bypass graft (09/26), I/D groin abscess (), L GSV harvest, vein patch angioplasty, L TICK INSPECTOR and BK pop w/ sartorius flap L [...] 81mg daily Benjamin Iniguez MD 10/06/2024 Pager: [phone] * Bejnamin Iniguez MD - 10/05/2024 7:42 AM EST Images from the original note were not included. Vascular Surgery Progress Note Geovanna Dixon Jr. is a 49 y.o. 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 He presented to [facility] on 09/26 and went to the OR [...] and PT signals present Labs: Recent Labs 10/04/24234910/04/248 10/03/24 0027 WBC 12.73* 12.58* 15.33* HGB 9.8* 9.4* 10.4* HCT 30.6* 28.8* 31.2* PLATELET 709* 670* 693* Recent Labs 10/04/24234910/04/24 0008 10/03/24 0027 NA 140 138 136 K 3.9 4.4 4.1 CL 105 105 103 CO2 * BUN 13 19 15 CREATININE 0.55* 0.56* 0.51* PHOS 4.2 3.7 3.5 CALCIUM 9.0 8.7 8.4* Microbiology: Microbiology Results (last 7 days) Procedure Component Value - Date/Time Blood culture [[id number]] Collected: 09/29/242123 Lab Status: Final result Specimen: Blood, Venous Updated: 10/04/24 230 Blood Culture No growth at 120 hours Blood culture [[id number]] Collected: 09/29/242123 Lab Status: Final result Specimen: Blood, Venous Updated: 10/04/24 230 Blood Culture No growth at 120 hours AFB culture [[id number]] Collected: 09/26/24 1702 Lab Status: Preliminary result Specimen: Abscess from Knee, Left Updated: 10/04/24 1201 Acid Fast Bacilli Culture No acid fast bacilli isolated at 1 week. Acid Fast Stain No acid fast bacilli seen Blood culture [[id number]] Collected: 09/28/24 1749 Lab Status: Final result Specimen: Blood, Venous Updated: 10/03/24 1901 Blood Culture No growth at 120 hours Blood culture [[id number]] (Abnormal) Collected: 09/27/242132 Lab Status: Final result Specimen: Blood, Venous Updated: 10/02/24 0804 Blood Culture Methicillin Resistant Staphylococcus aureus Comment: Susceptibilities previously reported. Gram Stain Aerobic Bottle: Gram positive cocci in clusters Tissue Culture, Aerobic & Anaerobic [[id number]] Collected: 09/27/241653 Lab Status: Final result Specimen: Tissue from Thigh, Left Updated: 10/01/24 1554 Narrative: The following orders were created for panel order Tissue Culture, Aerobic & Anaerobic. Procedure Abnormality Status --------- ------ Tissue Culture, Aerobic ...[[id number]] Anaerobic Culture[[id number]] Final result Please view results for these tests on the individual orders. Anaerobic Culture [[id number]] Collected: 09/27/241653 Lab Status: Final result Specimen: Tissue from Thigh, Left Updated: 10/01/24 1554 Anaerobic Culture No anaerobic organisms isolated Tissue Culture, Aerobic Only [[id number]] (Abnormal) (Susceptibility) Collected: 09/27/241653 Lab Status: Final [...] is considered susceptible to doxycycline. Blood culture [[id number]] (Abnormal) (Susceptibility) Collected: 09/26/24 1422 Lab Status: Final result Specimen: Blood, Venous Updated: 10/01/24 0658 Blood Culture Methicillin Resistant Staphylococcus aureus Comment: detected by PCR Isolate saved. If future testing is required, contact the Microbiology Brand Marketing Manager. Gram Stain Aerobic Bottle: Gram positive cocci in clusters Susceptibility Methicillin Resistant Staphylococcus aureus VITEK 2 METHOD Clindamycin Resistant Gentamicin Susceptible [1] Linezolid Susceptible Oxacillin Resistant Trimethoprim/Sulfa Susceptible Vancomycin Susceptible [1] Gentamicin is not appropriate for monotherapy for gram-positive infections. Blood culture [[id number]] (Abnormal) Collected: 09/26/24 1845 Lab Status: Final result Specimen: Blood, Venous Updated: 10/01/24 0658 Blood Culture Methicillin Resistant Staphylococcus aureus Comment: isolated. Susceptibilities previously reported. Gram Stain Aerobic Bottle: Gram positive cocci in clusters Abscess/Wound Aspirate Culture, Aerobic & Anaerobic [[id number]] (Abnormal) Collected: 09/26/241649 Lab Status: Final result Specimen: Abscess from Groin, Left Updated: 09/30/24 1551 Narrative: The following orders were created for panel order Abscess/Wound Aspirate Culture, Aerobic & Anaerobic. Procedure Abnormality Status --------- ------ Abscess/Wound Aspirate C...[[id number]] Abnormal Final result Anaerobic Culture[[id number]] Final result Please view results for these tests on the individual orders. Anaerobic Culture [[id number]] Collected: 09/26/241649 Lab Status: Final result Specimen: Abscess from Groin, Left Updated: 09/30/24 1551 Anaerobic Culture No anaerobic organisms isolated Abscess/Wound Aspirate Culture, Aerobic & Anaerobic [[id number]] (Abnormal) Collected: 09/26/241701 Lab Status: Final result Specimen: Abscess from Knee, Left Updated: 09/30/24 1551 Narrative: The following orders were created for panel order Abscess/Wound Aspirate Culture, Aerobic & Anaerobic. Procedure Abnormality Status --------- ------ Abscess/Wound Aspirate C...[[id number]] Abnormal Final result Anaerobic Culture[[id number]] Final result Please view results for these tests on the individual orders. Anaerobic Culture [[id number]] Collected: 09/26/241701 Lab Status: Final result Specimen: Abscess from Knee, Left Updated: 09/30/24 1551 Anaerobic Culture No anaerobic organisms isolated Sonicated Tissue/Implant Culture [[id number]] (Abnormal) Collected: 09/26/24 1716 Lab Status: Final result Specimen: Vascular Graft from Leg, Left Updated: 09/30/24 1349 Sonicated Tissue/Implant Culture Methicillin Resistant Staphylococcus aureus Comment: isolated from broth culture. Susceptibilities previously reported. Abscess/Wound Aspirate Culture, Aerobic Only [[id number]] (Abnormal) (Susceptibility) Collected: 09/26/24 170 Lab Status: [...] to doxycycline. Abscess/Wound Aspirate Culture, Aerobic Only [[id number]] (Abnormal) (Susceptibility) Collected: 09/26/241649 Lab Status: Final [...] is considered susceptible to doxycycline. AFB culture [[id number]] Collected: 09/27/241653 Lab Status: Preliminary result Specimen: Tissue from Thigh, Left Updated: 09/29/24 1201 Acid Fast Bacilli Culture No acid fast bacilli isolated to date. Acid Fast Stain No acid fast bacilli seen Fungus culture [[id number]] Collected: 09/27/241653 Lab Status: Preliminary result Specimen: [...] 2nd toe amputation who was transferred from [facility] given concern for infected left fem-BK popliteal PTFE bypass. He is now s/p an explantof an infected left femoral-below knee popliteal artery bypass graft (09/26), I/D groin abscess (), L GSV harvest, vein patch angioplasty, L TICK INSPECTOR and BK pop w/ sartorius flap L [...] 81mg daily Benjamin Iniguez MD 10/05/2024 Pager: [phone] Associated attestation - Hayley Torres MD - [...] imaging/radiology/diagnostics. Laboratory: Recent Labs 10/02/24 0041 10/01/24 02009/29/24 2352 WBC 10.93* 10.15* 9.54* HGB 9.6* [...] aspirate- MRSA Antimicrobials: Vancomycin- Imaging/diagnostics: CT lower trojgqdrs87/20 IMPRESSION: 1. Interval explant of LEFT femoral [...] male who underwent a left lower extremity ebmemvj-fo-nvlgs-kneepopliteal artery bypass on August 01, 2024, and [...] concerns. Please page ID Green team (pager [phone]) with questions or concerns. Lynne Leavitt MD Fellow, Infectious Disease Pager: [phone] Epic Chat 10/02/2024 This note was created using [employer]) voice recognition software. Associated attestation - Amaya [...] Procedure Component Value - Date/Time Blood culture [[id number]] Collected: 09/29/242123 Lab Status: Final result Specimen: Blood, Venous Updated: 10/04/24 2301 Blood Culture No growth at 120 hours Blood culture [[id number]] Collected: 09/29/242123 Lab Status: Final result Specimen: Blood, Venous Updated: 10/04/24 2301 Blood Culture No growth at 120 hours AFB culture [[id number]] Collected: 09/26/24 170 Lab Status: Preliminary result Specimen: Abscess from Knee, Left Updated: 10/04/24 120 Acid Fast Bacilli Culture No acid fast bacilli isolated at 1 week. Acid Fast Stain No acid fast bacilli seen Blood culture [[id number]] Collected: 09/28/24 174 Lab Status: Final result Specimen: Blood, Venous Updated: 10/03/24 1901 Blood Culture No growth at 120 hours Blood culture [[id number]] (Abnormal) Collected: 09/27/242132 Lab Status: Final result Specimen: Blood, Venous Updated: 10/02/24 0804 Blood Culture Methicillin Resistant Staphylococcus aureus Comment: Susceptibilities previously reported. Gram Stain Aerobic Bottle: Gram positive cocci in clusters Tissue Culture, Aerobic & Anaerobic [[id number]] Collected: 09/27/24 165 Lab Status: Final result Specimen: Tissue from Thigh, Left Updated: 10/01/24 155 Narrative: The following orders were created for panel order Tissue Culture, Aerobic & Anaerobic. Procedure Abnormality Status --------- ------ Tissue Culture, Aerobic ...[[id number]] Anaerobic Culture[[id number]] Final result Please view results for these tests on the individual orders. Anaerobic Culture [[id number]] Collected: 09/27/241653 Lab Status: Final result Specimen: Tissue from Thigh, Left Updated: 10/01/24 155 Anaerobic Culture No anaerobic organisms isolated Tissue Culture, Aerobic Only [[id number]] (Abnormal) (Susceptibility) Collected: 09/27/24 1654 Lab Status: [...] is considered susceptible to doxycycline. Blood culture [[id number]] (Abnormal) (Susceptibility) Collected: 09/26/24 1422 Lab Status: Final result Specimen: Blood, Venous Updated: 10/01/24 0658 Blood Culture Methicillin Resistant Staphylococcus aureus Comment: detected by PCR Isolate saved. If future testing is required, contact the Microbiology Brand Marketing Manager. Gram Stain Aerobic Bottle: Gram positive cocci in clusters Susceptibility Methicillin Resistant Staphylococcus aureus VITEK 2 METHOD Clindamycin >=8.0 ug/ml Resistant Gentamicin <=0.5 ug/ml Susceptible [1] Linezolid 2.0 ug/ml Susceptible Oxacillin >=4.0 ug/ml Resistant Trimethoprim/Sulfa <=10.0 ug/ml Susceptible Vancomycin 1.0 ug/ml Susceptible [1] Gentamicin is not appropriate for monotherapy for gram-positive infections. Blood culture [[id number]] (Abnormal) Collected: 09/26/24 1845 Lab Status: Final result Specimen: Blood, Venous Updated: 10/01/24 0658 Blood Culture Methicillin Resistant Staphylococcus aureus Comment: isolated. Susceptibilities previously reported. Gram Stain Aerobic Bottle: Gram positive cocci in clusters Abscess/Wound Aspirate Culture, Aerobic & Anaerobic [[id number]] (Abnormal) Collected: 09/26/24 1650 Lab Status: Final result Specimen: Abscess from Groin, Left Updated: 09/30/24 1551 Narrative: The following orders were created for panel order Abscess/Wound Aspirate Culture, Aerobic & Anaerobic. Procedure Abnormality Status --------- ------ Abscess/Wound Aspirate C...[[id number]] Abnormal Final result Anaerobic Culture[[id number]] Final result Please view results for these tests on the individual orders. Anaerobic Culture [[id number]] Collected: 09/26/24 1650 Lab Status: Final result Specimen: Abscess from Groin, Left Updated: 09/30/24 1551 Anaerobic Culture No anaerobic organisms isolated Abscess/Wound Aspirate Culture, Aerobic & Anaerobic [[id number]] (Abnormal) Collected: 09/26/24 170 Lab Status: Final result Specimen: Abscess from Knee, Left Updated: 09/30/24 1551 Narrative: The following orders were created for panel order Abscess/Wound Aspirate Culture, Aerobic & Anaerobic. Procedure Abnormality Status --------- ------ Abscess/Wound Aspirate C...[[id number]] Abnormal Final result Anaerobic Culture[[id number]] Final result Please view results for these tests on the individual orders. Anaerobic Culture [[id number]] Collected: 09/26/24 170 Lab Status: Final result Specimen: Abscess from Knee, Left Updated: 09/30/24 1551 Anaerobic Culture No anaerobic organisms isolated Sonicated Tissue/Implant Culture [[id number]] (Abnormal) Collected: 09/26/24 1716 Lab Status: Final result Specimen: Vascular Graft from Leg, Left Updated: 09/30/24 1349 Sonicated Tissue/Implant Culture Methicillin Resistant Staphylococcus aureus Comment: isolated from broth culture. Susceptibilities previously reported. Abscess/Wound Aspirate Culture, Aerobic Only [[id number]] (Abnormal) (Susceptibility) Collected: 09/26/24 170 Lab Status: [...] to doxycycline. Abscess/Wound Aspirate Culture, Aerobic Only [[id number]] (Abnormal) (Susceptibility) Collected: 09/26/241649 Lab Status: Final [...] is considered susceptible to doxycycline. AFB culture [[id number]] Collected: 09/27/241653 Lab Status: Preliminary result Specimen: Tissue from Thigh, Left Updated: 09/29/24 1201 Acid Fast Bacilli Culture No acid fast bacilli isolated to date. Acid Fast Stain No acid fast bacilli seen Fungus culture [[id number]] Collected: 09/27/241653 Lab Status: Preliminary result Specimen: [...] for consulting infectious diseases. Amaya Hernandez MD, [facility] Infectious Diseases Staff Physician * Vibha Guerrero [...] of moderate Diet NPO Monitoring: Q4 Fawn Cunnignham APRN [facility] Endocrinology Diabetes Management Pager [phone] Weekends please page [phone] minutes were spent over the course [...] 2nd toe amputation who was transferred from [facility] given concern for infected left fem-BK [...] smoking 1 week ago. He presented to [facility] on 09/26 and went to the OR [...] ??C (98 ??F)] Heart Rate: [78-95] Resp: [11-] BP: (105-162)/(77-99) SpO2: [94 %-97 %] Heart [...] and PT signals present Labs: Recent Labs 10/04/24710/03/247 10/02/24 0041 WBC 12.58* 15.33* 10.93* HGB 9.4* 10.4* 9.6* HCT 28.8* 31.2* 28.6* PLATELET 670* 693* 546* Recent Labs 10/04/24710/03/247 10/02/24 0041 NA 138 136 138 K 4.4 4.1 3.9 CL 105 103 105 CO2 24 20* 23 BUN 19 15 11 CREATININE 0.56* 0.51* 0.49* PHOS 3.7 3.5 4.1 CALCIUM 8.7 8.4* 8.2* Microbiology: Microbiology Results (last 7 days) Procedure Component Value - Date/Time Blood culture [[id number]] Collected: 09/29/242123 Lab Status: Preliminary result Specimen: Blood, Venous Updated: 10/03/24 230 Blood Culture No growth at 96 hours Blood culture [[id number]] Collected: 09/29/242123 Lab Status: Preliminary result Specimen: Blood, Venous Updated: 10/03/24 2301 Blood Culture No growth at 96 hours Blood culture [[id number]] Collected: 09/28/24 1749 Lab Status: Final result Specimen: Blood, Venous Updated: 10/03/24 1901 Blood Culture No growth at 120 hours Blood culture [[id number]] (Abnormal) Collected: 09/27/24 213 Lab Status: Final result Specimen: Blood, Venous Updated: 10/02/24 0804 Blood Culture Methicillin Resistant Staphylococcus aureus Comment: Susceptibilities previously reported. Gram Stain Aerobic Bottle: Gram positive cocci in clusters Tissue Culture, Aerobic & Anaerobic [[id number]] Collected: 09/27/24 1654 Lab Status: Final result Specimen: Tissue from Thigh, Left Updated: 10/01/24 1554 Narrative: The following orders were created for panel order Tissue Culture, Aerobic & Anaerobic. Procedure Abnormality Status --------- ------ Tissue Culture, Aerobic ...[[id number]] Anaerobic Culture[[id number]] Final result Please view results for these tests on the individual orders. Anaerobic Culture [[id number]] Collected: 09/27/24 165 Lab Status: Final result Specimen: Tissue from Thigh, Left Updated: 10/01/24 1554 Anaerobic Culture No anaerobic organisms isolated Tissue Culture, Aerobic Only [[id number]] (Abnormal) (Susceptibility) Collected: 09/27/24 165 Lab Status: [...] is considered susceptible to doxycycline. Blood culture [[id number]] (Abnormal) (Susceptibility) Collected: 09/26/24 1422 Lab Status: Final result Specimen: Blood, Venous Updated: 10/01/24 0658 Blood Culture Methicillin Resistant Staphylococcus aureus Comment: detected by PCR Isolate saved. If future testing is required, contact the Microbiology Brand Marketing Manager. Gram Stain Aerobic Bottle: Gram positive cocci in clusters Susceptibility Methicillin Resistant Staphylococcus aureus VITEK 2 METHOD Clindamycin Resistant Gentamicin Susceptible [1] Linezolid Susceptible Oxacillin Resistant Trimethoprim/Sulfa Susceptible Vancomycin Susceptible [1] Gentamicin is not appropriate for monotherapy for gram-positive infections. Blood culture [[id number]] (Abnormal) Collected: 09/26/24 1845 Lab Status: Final result Specimen: Blood, Venous Updated: 10/01/24 0658 Blood Culture Methicillin Resistant Staphylococcus aureus Comment: isolated. Susceptibilities previously reported. Gram Stain Aerobic Bottle: Gram positive cocci in clusters Abscess/Wound Aspirate Culture, Aerobic & Anaerobic [[id number]] (Abnormal) Collected: 09/26/24 1650 Lab Status: Final result Specimen: Abscess from Groin, Left Updated: 09/30/24 1551 Narrative: The following orders were created for panel order Abscess/Wound Aspirate Culture, Aerobic & Anaerobic. Procedure Abnormality Status --------- ------ Abscess/Wound Aspirate C...[[id number]] Abnormal Final result Anaerobic Culture[[id number]] Final result Please view results for these tests on the individual orders. Anaerobic Culture [[id number]] Collected: 09/26/24 1650 Lab Status: Final result Specimen: Abscess from Groin, Left Updated: 09/30/24 1551 Anaerobic Culture No anaerobic organisms isolated Abscess/Wound Aspirate Culture, Aerobic & Anaerobic [[id number]] (Abnormal) Collected: 09/26/24 1702 Lab Status: Final result Specimen: Abscess from Knee, Left Updated: 09/30/24 1551 Narrative: The following orders were created for panel order Abscess/Wound Aspirate Culture, Aerobic & Anaerobic. Procedure Abnormality Status --------- ------ Abscess/Wound Aspirate C...[[id number]] Abnormal Final result Anaerobic Culture[[id number]] Final result Please view results for these tests on the individual orders. Anaerobic Culture [[id number]] Collected: 09/26/24 1702 Lab Status: Final result Specimen: Abscess from Knee, Left Updated: 09/30/24 1551 Anaerobic Culture No anaerobic organisms isolated Sonicated Tissue/Implant Culture [[id number]] (Abnormal) Collected: 09/26/24 1716 Lab Status: Final result Specimen: Vascular Graft from Leg, Left Updated: 09/30/24 1349 Sonicated Tissue/Implant Culture Methicillin Resistant Staphylococcus aureus Comment: isolated from broth culture. Susceptibilities previously reported. Abscess/Wound Aspirate Culture, Aerobic Only [[id number]] (Abnormal) (Susceptibility) Collected: 09/26/24 1702 Lab Status: [...] to doxycycline. Abscess/Wound Aspirate Culture, Aerobic Only [[id number]] (Abnormal) (Susceptibility) Collected: 09/26/24 1650 Lab Status: [...] is considered susceptible to doxycycline. AFB culture [[id number]] Collected: 09/27/24 1654 Lab Status: Preliminary result Specimen: Tissue from Thigh, Left Updated: 09/29/24 1201 Acid Fast Bacilli Culture No acid fast bacilli isolated to date. Acid Fast Stain No acid fast bacilli seen AFB culture [[id number]] Collected: 09/26/24 1702 Lab Status: Preliminary result Specimen: Abscess from Knee, Left Updated: 09/29/24 1201 Acid Fast Bacilli Culture No acid fast bacilli isolated to date. Acid Fast Stain No acid fast bacilli seen Fungus culture [[id number]] Collected: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 susceptible to doxycycline. Blood culture [[id number]] (Abnormal) Collected: 09/27/24 2133 Lab Status: Preliminary result Specimen: Blood, Venous Updated: 09/30/24 0718 Blood Culture Methicillin Resistant Staphylococcus aureus Comment: Susceptibilities previously reported. Gram Stain Aerobic Bottle: Gram positive cocci in clusters AFB culture [[id number]] Collected: 09/27/24 1654 Lab Status: Preliminary result Specimen: Tissue from Thigh, Left Updated: 09/29/24 1201 Acid Fast Bacilli Culture No acid fast bacilli isolated to date. Acid Fast Stain No acid fast bacilli seen AFB culture [[id number]] Collected: 09/26/24 1702 Lab Status: Preliminary result Specimen: Abscess from Knee, Left Updated: 09/29/24 1201 Acid Fast Bacilli Culture No acid fast bacilli isolated to date. Acid Fast Stain No acid fast bacilli seen Tissue Culture, Aerobic Only [[id number]] (Abnormal) (Susceptibility) Collected: 09/27/241653 Lab Status: Preliminary [...] is considered susceptible to doxycycline. Anaerobic Culture [[id number]] Collected: 09/27/241653 Lab Status: Preliminary result Specimen: Tissue from Thigh, Left Updated: 09/28/24 1355 Anaerobic Culture No anaerobic organisms isolated to date Fungus culture [[id number]] Collected: 09/27/241653 Lab Status: Preliminary result Specimen: Tissue from Thigh, Left Updated: 09/28/24 0748 Fungus Culture No fungus isolated to date MRSA PCR Screen [[id number]] (Abnormal) Collected: 09/27/24 0751 Lab Status: Final result Specimen: Swab from Nares Updated: 09/27/24 1156 MRSA PCR Detected Narrative: This test was performed using the Xpert MRSA NxG test kit and is run on the [employer] Dx System. This test is cleared by the U.S. Food and Drug Administration for clinical use and its performance characteristics have been verified by the Clinical Genomics and [facility] Technology Laboratory at [facility]. Fungus culture [[id number]] Collected: 09/26/241649 Lab Status: Preliminary result Specimen: Abscess from Groin, Left Updated: 09/27/24 0727 Fungus Culture No fungus isolated to date Fungus culture [[id number]] Collected: 09/26/24 1702 Lab Status: Preliminary result [...] 2nd toe amputation who was transferred from [facility] given concern for infected left fem-BK popliteal PTFE bypass. He is now s/p an explantof an infected left femoral-below knee popliteal artery bypass graft (09/26), I/D groin abscess (), L GSV harvest, vein patch angioplasty, L TICK INSPECTOR and BK pop w/ sartorius flap L fem, I/D, 09/29 L sartorius flap revision, vac change. 10/01/24: Tolerated gentle irrigation with saline at BSD today with clear to mildly serosang drainage - no purulence or malodor noted and patient tolerated well. Will plan for NPO at [place] for return [place] tomorrow. Hypertensive overnight, home [...] - ISS - diet today; NPO at [facility] for OR Tuesday 10/02 Anticoagulation: SQH TID Antiplatelet: ASA 81 María Carranza, LICENSED STAFF MFT 10/01/2024 Pager: [phone] * Karolyn Hudson MD - 09/30/2024 11:21 AM EST Images from the original note were not included. Vascular Surgery Progress Note Patient ID Geovanna Dixon Jr. is a 49 y.o. 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 He presented to [facility] on 09/26 and went to the OR [...] wbc, hgb, hct plt Recent Labs 09/29/24 23509/28/24 2351 09/27/24 2358 WBC 9.54* 12.76* 17.15* HGB 8.7* 8.5* 10.4* HCT 25.8* 24.7* 30.5* PLATELET 411* 331 316 Microbiology Microbiology Results (last 7 days) Procedure Component Value - Date/Time Blood culture [[id number]] (Abnormal) Collected: 09/27/24 2133 Lab Status: Preliminary result Specimen: Blood, Venous Updated: 09/30/24 0718 Blood Culture Methicillin Resistant Staphylococcus aureus Comment: Susceptibilities previously reported. Gram Stain Aerobic Bottle: Gram positive cocci in clusters Blood culture [[id number]] Collected: 09/28/24 1749 Lab Status: Preliminary result Specimen: Blood, Venous Updated: 09/29/24 1901 Blood Culture No Growth at 18-24 hrs. AFB culture [[id number]] Collected: 09/27/24 1654 Lab Status: Preliminary result Specimen: Tissue from Thigh, Left Updated: 09/29/24 1201 Acid Fast Bacilli Culture No acid fast bacilli isolated to date. Acid Fast Stain No acid fast bacilli seen AFB culture [[id number]] Collected: 09/26/24 1702 Lab Status: Preliminary result Specimen: Abscess from Knee, Left Updated: 09/29/24 1201 Acid Fast Bacilli Culture No acid fast bacilli isolated to date. Acid Fast Stain No acid fast bacilli seen Sonicated Tissue/Implant Culture [[id number]] (Abnormal) Collected: 09/26/24 1716 Lab Status: Preliminary result Specimen: Vascular Graft from Leg, Left Updated: 09/29/24 1132 Sonicated Tissue/Implant Culture Methicillin Resistant Staphylococcus aureus Comment: isolated from broth culture. Susceptibilities previously reported. Tissue Culture, Aerobic Only [[id number]] (Abnormal) (Susceptibility) Collected: 09/27/24 1654 Lab Status: [...] is considered susceptible to doxycycline. Blood culture [[id number]] (Abnormal) Collected: 09/26/24 1845 Lab Status: Preliminary result Specimen: Blood, Venous Updated: 09/29/24 0719 Blood Culture Methicillin Resistant Staphylococcus aureus Comment: isolated. Susceptibilities previously reported. Gram Stain Aerobic Bottle: Gram positive cocci in clusters Blood culture [[id number]] (Abnormal) (Susceptibility) Collected: 09/26/24 1422 Lab Status: Preliminary result Specimen: Blood, Venous Updated: 09/29/24 0717 Blood Culture Methicillin Resistant Staphylococcus aureus Comment: detected by PCR Isolate saved. If future testing is required, contact the Microbiology Brand Marketing Manager. Gram Stain Aerobic Bottle: Gram positive cocci in clusters Susceptibility Methicillin Resistant Staphylococcus aureus VITEK 2 METHOD Clindamycin Resistant Gentamicin Susceptible [1] Linezolid Susceptible Oxacillin Resistant Trimethoprim/Sulfa Susceptible Vancomycin Susceptible [1] Gentamicin is not appropriate for monotherapy for gram-positive infections. Anaerobic Culture [[id number]] Collected: 09/27/24 1654 Lab Status: Preliminary result Specimen: Tissue from Thigh, Left Updated: 09/28/24 1355 Anaerobic Culture No anaerobic organisms isolated to date Abscess/Wound Aspirate Culture, Aerobic Only [[id number]] (Abnormal) (Susceptibility) Collected: 09/26/24 1702 Lab Status: [...] to doxycycline. Abscess/Wound Aspirate Culture, Aerobic Only [[id number]] (Abnormal) (Susceptibility) Collected: 09/26/241649 Lab Status: Preliminary [...] is considered susceptible to doxycycline. Fungus culture [[id number]] Collected: 09/27/241653 Lab Status: Preliminary result Specimen: Tissue from Thigh, Left Updated: 09/28/24 0748 Fungus Culture No fungus isolated to date MRSA PCR Screen [[id number]] (Abnormal) Collected: 09/27/24 0751 Lab Status: Final result Specimen: Swab from Nares Updated: 09/27/24 1156 MRSA PCR Detected Narrative: This test was performed using the Xpert MRSA NxG test kit and is run on the [employer] GeneXpert Dx System. This test is cleared by the U.S. Food and Drug Administration for clinical use and its performance characteristics have been verified by the Clinical Genomics and [facility] Technology Laboratory at [facility]. Anaerobic Culture [[id number]] Collected: 09/26/241649 Lab Status: Preliminary result Specimen: Abscess from Groin, Left Updated: 09/27/24 1142 Anaerobic Culture No anaerobic organisms isolated to date Anaerobic Culture [[id number]] Collected: 09/26/24 1702 Lab Status: Preliminary result Specimen: Abscess from Knee, Left Updated: 09/27/24 1142 Anaerobic Culture No anaerobic organisms isolated to date Fungus culture [[id number]] Collected: 09/26/241649 Lab Status: Preliminary result Specimen: Abscess from Groin, Left Updated: 09/27/24 0727 Fungus Culture No fungus isolated to date Fungus culture [[id number]] Collected: 09/26/24 1702 Lab Status: Preliminary result Specimen: Abscess from Knee, Left Updated: 09/27/24726 Fungus Culture No fungus isolated to date New Studies Results for orders placed or performed during the hospital encounter of 09/26/24 Request For 2nd Read CT Lower Extremity (Exam End: 09/26/2024 1:50 PM) Result Value WORKSTATION ID [id number] Impression 1. There is a left femoral [...] have questions please contact the health pet care associate that requested your imaging first. Lower Extremity w Contrast Left (Exam End: 09/27/2024 9:16 AM) Result Value WORKSTATION ID [id number] Impression IMPRESSION: 1. Interval explant of LEFT [...] have questions please contact the health pet care associate that requested your imaging first. 09/28 ABIs [...] 2nd toe amputation who was transferred from [facility] given concern for infected left fem-BK [...] at proximal and distal anastomoses and a Letcher drain placed from left groin to left thigh. The retained grafts have since been removed, with Letcher drains in the L groin and thigh [...] Neuro: no deficits Recent Labs 09/29/24 23509/28/24 23509/27/24 23509/27/24 1755 WBC 9.54* 12.76* 17.15* 19.38* HGB [...] Labs 09/28/24 1516 PHART 7.42 PO2ART 103 [id number] 39 LACTATEART 1.1 BEART 0.2 Is this [...] Outcome: Ongoing (Interventions Implemented as Appropriate) * Tyoa Berry MD - 09/29/2024 8:08 PM EST [...] erythema Neuro: no deficits Recent Labs 09/28/24 23509/27/24 23509/27/24 1755 09/27/24 0001 09/26/24 1439 WBC 12.76* [...] 1643 PHART 7.42 7.38 PO2ART 103 96 [id number] 39 41 LACTATEART 1.1 1.7 BEART 0.2 -1.4 Is this patient critically ill? Is there a high potential of sudden, clinically significant, or life threatening deterioration? No Is there a need for direct personal assessment and management to treat/prevent multiple vital organfailure/deterioration? No Jean Marie. Alex Gonsalez MD * Stacey Thomas [...] segmental wall motion abnormalities Impression: Geovanna Dixon JrFlorencio is a 49 y.o.male history of coronary [...] Diet CC Monitoring: Q4 Fawn Cunningham APRN [facility] Endocrinology Diabetes Management Pager [phone] Weekends please page [phone] 35 minutes were spent over the course [...] Labs 09/26/24 1643 PHART 7.38 PO2ART 96 [id number] 41 LACTATEART 1.7 BEART -1.4 Is this [...] 2nd toe amputation who was transferred from [facility] given concern for infected left fem-BK [...] smoking 1 week ago. He presented to [facility] on 09/26 and went to the OR [...] Procedure Component Value - Date/Time Fungus culture [[id number]] Collected: 09/27/24 1654 Lab Status: Preliminary result Specimen: Tissue from Thigh, Left Updated: 09/28/24 0748 Fungus Culture No fungus isolated to date Blood culture [[id number]] (Abnormal) Collected: 09/26/24 1845 Lab Status: Preliminary result Specimen: Blood, Venous Updated: 09/28/24 0711 Blood Culture Methicillin Resistant Staphylococcus aureus Comment: isolated. Susceptibility testing in progress. Gram Stain Aerobic Bottle: Gram positive cocci in clusters AFB culture [[id number]] Collected: 09/26/24 1702 Lab Status: Preliminary result Specimen: Abscess from Knee, Left Updated: 09/27/24 2335 Acid Fast Stain No acid fast bacilli seen Tissue Culture, Aerobic Only [[id number]] Collected: 09/27/24 1654 Lab Status: Preliminary result Specimen: Tissue from Thigh, Left Updated: 09/27/24 1810 Gram Stain Few Neutrophils seen No microorganisms seen Abscess/Wound Aspirate Culture, Aerobic Only [[id number]] (Abnormal) Collected: 09/26/24 170 Lab Status: Preliminary result Specimen: Abscess from Knee, Left Updated: 09/27/24 1520 Abscess/Wound Aspirate Culture Many Staphylococcus aureus Gram Stain Many neutrophils Many Gram positive cocci Abscess/Wound Aspirate Culture, Aerobic Only [[id number]] (Abnormal) Collected: 09/26/24 165 Lab Status: Preliminary result Specimen: Abscess from Groin, Left Updated: 09/27/24 1519 Abscess/Wound Aspirate Culture Many Staphylococcus aureus Gram Stain Many neutrophils Many Gram positive cocci Blood culture [[id number]] (Abnormal) Collected: 09/26/24 1422 Lab Status: Preliminary result Specimen: Blood, Venous Updated: 09/27/24 1320 Blood Culture Methicillin Resistant Staphylococcus aureus Comment: detected by PCR Gram Stain Aerobic Bottle: Gram positive cocci in clusters MRSA PCR Screen [[id number]] (Abnormal) Collected: 09/27/24 0751 Lab Status: Final result Specimen: Swab from Nares Updated: 09/27/24 1156 MRSA PCR Detected Narrative: This test was performed using the Xpert MRSA NxG test kit and is run on the [employer] Show [employer]IM Dx System. This test is cleared by the U.S. Food and Drug Administration for clinical use and its performance characteristics have been verified by the Clinical Genomics and [facility] Laboratory at [facility]. Anaerobic Culture [[id number]] Collected: 09/26/24 1650 Lab Status: Preliminary result Specimen: Abscess from Groin, Left Updated: 09/27/24 1142 Anaerobic Culture No anaerobic organisms isolated to date Anaerobic Culture [[id number]] Collected: 09/26/24 1702 Lab Status: Preliminary result Specimen: Abscess from Knee, Left Updated: 09/27/24 1142 Anaerobic Culture No anaerobic organisms isolated to date Fungus culture [[id number]] Collected: 09/26/24 1650 Lab Status: Preliminary result Specimen: Abscess from Groin, Left Updated: 09/27/24726 Fungus Culture No fungus isolated to date Fungus culture [[id number]] Collected: 09/26/24 1702 Lab Status: Preliminary result Specimen: Abscess from Knee, Left Updated: 09/27/24726 Fungus Culture No fungus isolated to date New Studies Results for orders placed or performed during the hospital encounter of 09/26/24 Request For 2nd Read CT Lower Extremity (Exam End: 09/26/2024 1:50 PM) Result Value WORKSTATION ID [id number] Impression 1. There is a left femoral [...] have questions please contact the health pet care associate that requested your imaging first. Lower Extremity w Contrast Left (Exam End: 09/27/2024 9:16 AM) Result Value WORKSTATION ID [id number] Impression IMPRESSION: 1. Interval explant of LEFT [...] have questions please contact the health pet care associate that requested your imaging first. Assessment & Plan Geovanna Dixon Jr. is a 49 y.o. male with a history of HTN, HLD, NSTEMI, CAD s/p CABG (12/2011), DM,obesity, PAD s/p L iliofem endart and L fem-BK pop bypass and L 2nd toe amputation who was transferred from [facility] given concern for infected left fem-BK [...] Karolyn Hudson MD Vascular Surgery 09/28/24 [id number] Padma Yu MD - 09/27/2024 9:47 PM EST Surgery [...] Kita Hodge - 09/27/2024 3:58 PM EST Technical Sales Manager Encounter Note Patient Name: Geovanna Dixon Jr. : [id number] MR#: [id number] Admit Date: 09/26/2024 2:08 PM Hospital Day 1 day Narrative: Automobile Parts Assembler initiated visit with patient during rounds on the unit. Patient indicated that he was not congregational. He reported that he was in less [...] Labs 09/26/24 1643 PHART 7.38 PO2ART 96 [id number] 41 LACTATEART 1.7 BEART -1.4 Is this [...] 2nd toe amputation who was transferred from [facility] given concern for infected left fem-BK [...] smoking 1 week ago. He presented to [facility] on 09/26 and went to the OR [...] 2nd toe amputation who was transferred from [facility] given concern for infected left fem-BK popliteal PTFE bypass. He is now s/p an explantof an infected left femoral-below knee popliteal artery bypass graft. Significant purulence under pr essure was seen intraoperatively, surrounding the entire bypass at proximal and distal anastomoses as well as the tunnel. There are retained grafts left at proximal and distal anastomoses, and a Letcher drain placed from left groin to left [...] graft associated infection. The patient presented to [facility] ED on 09/26 for evaluation of [...] remained hemodynamically stable during his time at [facility] and was transported by ground to [facility] for vascular surgery consultation. Patient was admitted [...] performed by Thony Garcia MD at [facility] MA[facility] OR PRO BYPASS GRAFT OTHR, FEM-TIBIAL Left 08/01/2024 @BYPASS GRAFT, FEM-ANT TIBIAL, -POST TIBIAL, -PERONEAL, -DP W\ SYNTHETIC CONDUIT (WRVU 23.66) performed by Lisette Maldonado MD at [facility] MA[facility] OR PRO CABG, ARTERY-VEIN, SINGLE 01/04/2012 @CABG, VENOUS & ARTERIAL GRAFT;SINGLE VEIN GRAFT performed by INNA TOVAR at [facility] MA[facility] OR PRO ENDOSCOPY W/VIDEO-ASST VEIN HARVEST, CABG 01/04/2012 ENDOSCOPIC HARVEST VEIN(S) FOR CABG performed by INNA TOVAR at [facility] MA[facility] OR VS ARTERIOGRAM LOWER EXTREMITY VASCULAR SURGERY 07/20/2024 VS Arteriogram Lower Extremity Vascular Surgery 07/20/[address] [facility] INTERVENTIONL RAD Prior To Admission Medications: [...] 3 times daily. Use as instructed Indications: [id number] each 1 Past Week FreeStyle Lancets 28 [...] 200 - 393 mg/dL Type and screen ([facility]) Result Value Ref Range ABORH Type A POSITIVE PATIENT HISTORY Found Expires at 2359 on: 09/29/2024 ANTIBODY SCREEN AUTOMATED Negative T&S only valid at [facility] LAB CBC (with Diff) Result Value Ref [...] 09/26/2024 1:50 PM) Result Value WORKSTATION ID [id number] Impression 1. There is a left femoral [...] have questions please contact the health pet care associate that requested your imaging first. Assessment/Plan: Geovanna [...] in this encounter Procedure Notes * Jorge Torres, RN - 10/09/2024 1:55 PM ESTAssociated Order(s): [...] to the planned procedure. Hand Hygiene: The spectrographic analyst did perform hand hygiene prior to line insertion. Catheter type: PICC Lot number: [id number] Procedure Technique: Skin was prepped with chlorhexidine. [...] to the planned procedure. Hand Hygiene: The spectrographic analyst did perform hand hygiene prior to line insertion. Catheter type: PICC Lot number: [id number] Procedure Technique: Skin was prepped with chlorhexidine. [...] tomorrow afternoon. Home Vac: I have called [facility] Inventory and they they have now delivered the home ActiVac serial # [id number]. Pt reviewed the [facility] ActiVac Proof of Delivery/Assignment of Benefits (POD/AOB)form and signed it; she has copy of this and the [facility] Patient Copy letter along with the supplies, I will fax copy of the POD/AOB to [facility]. Needs for Transition of Care: Plan for discharge is: Home w/ Services Outpatient Agency/Support Group Needs: Homecare agency Outpatient IV Medications - IV Access: Access Ordered Location: Home, Referred to [facility] Coordination, Referred to [facility] Services: Occupational Therapy, Physical Therapy, Registered Nurse Agency Referrals & Follow-up Care: [facility] [address] [place] [address] Transportation: family or friend will provide Functional status prior to admission: Independent Home Environment: Others in the home: sibling(s), other (see comments) (lives with his sister delmy and brother in law). Current Living Arrangements: home/apartment/condo. Accessibility Concerns: . Current Functional Ability: Assistive Person and Equipment DME used at home: none Other DME Needs: Wound Vac Provider: [facility] Patient is insured through: Primary Insurance: [employer] MANAGED MEDICARE Payor: [employer] MANAGED MEDICARE / Plan: [employer] MANAGED MEDICARE [...] Pain Flowsheets Taken 10/09/20242022 Pain Management Interventions: sribnw-kjt-myoba dosing utilized care clustered diversional activity provided [...] from the [place] [address] [facility] Vascular Access Service Peripherally Inserted Central Catheter (PICC) Teaching Sheet Peripherally inserted central catheters (yrez-jt-nqft) (PICC) are used when you need IV [...] midline catheter? PICC lines are used for termite technician treatments. PICC lines may be used for [...] can be set up via the nurse Special Projects Coordinator to help you. What are possible complications [...] Efficacy, Safety, Use, and Administration of [employer], [employer] 2005 * Care Management - Cristina [...] MEDICARE Payor: [employer] MANAGED MEDICARE / Plan: [employer] MANAGED MEDICARE PPO / Product Type: *No [...] Access: Access Ordered Location: Home, Referred to [facility] Coordination Home Health Services: Occupational Therapy, Physical Therapy, Registered Nurse- will remove PT, OT Agency Referrals: [facility] and [facility] for IV abx. [facility] can come tomorrow [...] 9:00 AM EST OFFICE OF CARE MANAGEMENT Special Projects Coordinator Follow-up Note Cristina Turner RN reviewed record [...] medically ready. Current Referral in place: VNA: [facility] Wound vac ordered in [employer] System for home wound vac and order emailed to: María for signature. Special Projects Coordinator to follow with team and family to [...] where referrals are placed. Request referral to [place], [place] for IV abx or . Expected date of discharge: 10/11. Patient will require teaching. Referral routed to the Gasket Supervisor for matching with agency/vendor and to provide [...] Identify and Manage Contributors Flowsheets (Taken 10/08/2024 08) Medication Review/Management: medications reviewed Self-Care Promotion: independence [...] care clustered diversional activity provided position adjusted yiqhfl-klj-zvnfb dosing utilized pain management plan reviewed with [...] have. Alternately, during off-hours you may call [phone] to contact a pharmacist. * Plan of Care - Jordyn Navas RN - 10/07/2024 7:21 PM EST OUTCOME EVALUATION NOTE: OUTCOME SUMMARY: [facility], Meds/Assessments as charted, Frequent [...] (Interventions Implemented as Appropriate) * Plan of Tesha - Melia Whitehead RN - 10/07/2024 5:07 [...] PM EST PICC line placed today for termite technician ABX. Neurovascular checks unchanged. Good oral intake [...] from the [place] [address] [facility] hospital Vascular Access Service Peripherally Inserted Central Catheter (PICC) Teaching Sheet Peripherally inserted central catheters (giwr-oq-voic) (PICC) are used when you need IV [...] midline catheter? PICC lines are used for termite technician treatments. PICC lines may be used for [...] can be set up via the nurse Special Projects Coordinator to help you. What are possible complications [...] Vascular Access Device Selection, Insertion, and Management, [employer] Access Systems 08/12. A Review of the Efficacy, Safety, Use, and Administration of [employer], [employer] 2005 * Care Management - Vibha [...] through: Primary Insurance: [employer] MANAGED MEDICARE Payor: [employer] MEDICARE / Plan: [employer] MANAGED MEDICARE PPO / Product Type: *No [...] of Discharge: 10/10/2024 Vibha Wahl RN-BSN-CM Pager: [phone] * Consult Note - Stormy Muller, [facility] - 10/06/2024 9:19 AM EST [facility] Pharmacokinetics Note Drug: Vancomycin Pharmacokinetic target: [...] Analysis of the most recent level(s) using [employer] gives the following patient-specific pharmacokinetic parameters: CL: [...] in a steady-state trough of 14.6 mg/L [id number] of 508 mg/L.hr. Recommendations: - SCr has [...] Meeks MD - 10/04/2024 5:01 PM EST [facility] Operative Note Patient Name: Geovanna Dixon Jr. : [id number] MR#: [id number] Case Date: 10/04/2024 Surgeon: Surgeons and Role: * Marko Dickson MD - Primary * Cristino Meeks MD - Resident - Assisting Preoperative diagnosis: Status post explant of infected left TICK INSPECTOR-BK pop bypass graft Postoperative diagnosis: Status post explant of infected left TICK INSPECTOR-BK pop bypass graft Procedure(s) (LRB): DEBRIDEMENT SKIN [...] 2nd toe amputation who was transferred from [facility] given concern for infected left fem-BK popliteal PTFE bypass. He is now s/p an explant of an infected left femoral-below knee popliteal artery bypass graft on 09/26 followed by I/D posterior thigh abscess on 09/27 then left GSV harvest, total explant of remaining PTFE then vein patch angioplasty of the left TICK INSPECTOR and BK popliteal artery on 09/28 then [...] Note Patient Name: Geovanna Dixon Jr. : [id number] MR#: [id number] Case Date: 10/04/2024 Surgeon: Surgeons and Role: * Marko Dickson MD - Primary * Cristino Meeks MD - Resident - Assisting Preoperative diagnosis: Status post explant of infected left TICK INSPECTOR-BK pop bypass graft Postoperative diagnosis: Status post explant of infected left TICK INSPECTOR-BK pop bypass graft Procedure(s) (LRB): DEBRIDEMENT SKIN [...] No Patient is insured through: Primary Insurance: [employer] MEDICARE Payor: [employer] MEDICARE / Plan: [employer] MANAGED MEDICARE PPO / Product Type: *No Product type* / Secondary Insurance: N/A Last Physical Therapy Recommendation: home with supervision (and support from family, prn) with None (10/03/24 1101) Last Occupational Therapy Recommendation: home (w/ family) with None (10/03/24 0456) Plan for discharge is: Pending Hospital Course [...] BIT to reengage please page BIT @ [phone] * Consult Note - Vangie Chandra [facility] - 10/04/2024 10:42 AM EST [facility] Pharmacokinetics Note Drug: Vancomycin Pharmacokinetic target: AUC24 (range) 400-600 mg/L.hr Current regimen: 1500 mg IV every 8 hours Geovanna Dixon is a(n) 49 years old male receiving Vancomycin 1500 mg IV every 8 hours for graft infection Recent measured serum creatinine values: 10/04/2024 00:08 0.56 mg/dL 10/03/2024 00:27 0.51 mg/dL 10/02/2024 00:41 0.49 mg/dL Assessment: Analysis of the most recent level(s) using [employer] gives the following patient-specific pharmacokinetic parameters: CL: [...] L 2nd toe amputationwho was transferred from [facility] given concern for infected left fem-BK popliteal PTFE bypass. He is now s/p an explant of an infected left femoral-below knee popliteal artery bypass graft (09/26), I/D groin abscess (09/27), L GSV harvest, vein patch angioplasty, L TICK INSPECTOR and BK pop w/ sartorius flap L fem, I/D, 09/29 L sartorius flap revision, vac change. 10/03/24 NPO at [facility] for OR wound exploration. Wound vac off [...] performed by Thony Garcia MD at [facility] OR PRO BYPASS GRAFT OTHR, FEM-TIBIAL Left 08/01/2024 @BYPASS GRAFT, FEM-ANT TIBIAL, -POST TIBIAL, -PERONEAL, -DP W\ SYNTHETIC CONDUIT (WRVU 23.66) performed by Lisette Maldonado MD at [facility] OR PRO CABG, ARTERY-VEIN, SINGLE 01/04/2012 @CABG, VENOUS & ARTERIAL GRAFT;SINGLE VEIN GRAFT performed by INNA TOVAR at [facility] OR PRO DEBRIDEMENT MUSCLE AND FASCIA 20 SQ CM/< Left 09/29/2024 DEBRIDEMENT SKIN, SUBCU, MUSCLE, LOWER EXTREMITY (WRVU 2.7) performed by Anabel Finney MD at [facility] OR PRO DEBRIDEMENT MUSCLE AND FASCIA 20 SQ CM/< Left 10/02/2024 DEBRIDEMENT SKIN, SUBCU, MUSCLE, LOWER EXTREMITY (WRVU 2.7) performed by Hermila Mccormick MDat [facility] PRO DEBRIDEMENT SUBCUTANEOUS TISSUE 20 SQCM/< Left 09/27/2024 DEBRIDEMENT SKIN AND SUBCU, LOWER EXTREMITY (WRVU 1.01) performed by Hayley Torres MD at [facility] OR PRO DRAIN LOWER LEG DEEP ABSC/HEMATOMA Left 09/26/2024 INCISION & DRAINAGE, LEG OR ANKLE, DEEP ABSCESS OR HEMATOMA (WRVU 5.23) performed by Hayley Torres MD at [facility] OR PRO ENDOSCOPY W/VIDEO-ASST VEIN HARVEST, CABG 01/04/2012 ENDOSCOPIC HARVEST VEIN(S) FOR CABG performed by INNA TOVAR at [facility] OR PRO EXCISION, INFEC GRAFT, EXTREMITY Left 09/26/2024 EXCISION OF INFECTED GRAFT FROM LOWER EXTREMITY (WRVU 9.53) performed by Hayley Torres MD at [facility] OR PRO EXCISION, INFEC GRAFT, EXTREMITY Left 09/28/2024 EXCISION OF INFECTED GRAFT FROM LOWER EXTREMITY (WRVU 9.53) performed by Hayley Torres MD at [facility] OR PRO EXPLORATION NOT FOLLOWED BY SURG LOWER EXTREMITY ARTERY Left 09/29/2024 @EXPLORATION W\O SURGICAL REPAIR, FEMORAL ARTERY - JENNIFER (WRVU 7.5) performed by Anabel Finney MD at [facility] OR PRO FORM SKIN PEDICLE FLAP SCALP, ARM, LEG 09/28/2024 FLAP, PEDICLE,W OR W/O TRANSFER, LEGS (WRVU 10.12) performed by Hayley Torres MD at [facility] OR PRO I&D DEEP ABSCESS BURSA/HEMATOMA THIGH/KNEE REGION Left 09/26/2024 INCISION & DRAINAGE ABSCESS OR HEMATOMA, THIGH, KNEE SUPERFICIAL (WRVU 6.78) performed by Hayley Torres MD at [facility] OR PRO REVISION FEMORAL ANAST BPG GROIN OPEN W/NONAUTOG PATCH GRAFT Left 09/28/2024 REV. FEM. ANASTOMOSIS OF SYN. BYPASS GRAFT USING NONAUTOGENOUS PATCH ANGIOPLASTY-JENNIFER (WRVU 23.15) performed by Hayley Torres MD at [facility] OR PRO UNLISTED PROCEDURE VASCULAR SURGERY Left 09/28/2024 HARVEST SAPHENOUS VEIN (WRVU 13.24) performed by Hayley Torres MD at [facility] OR VS ARTERIOGRAM LOWER EXTREMITY VASCULAR SURGERY 07/20/2024 VS Arteriogram Lower Extremity Vascular Surgery 07/20/[address] [facility] INTERVENTIONL RAD Social History: Patient lives [...] Pt issued and educated on use of safety net maker for safety net maker lower items. Self-feeding: Independent Grooming: Set up [...] Discharge planning Total Minutes, Occupational Therapy: 35 ([id number]) OT Evaluation Code Rationale: Diagnosis & Pertinent Co-Morbidities affecting Plan of Care: see PMHx Occupational Profile & Client History: Brief Expanded Extensive x Assessment of Occupational Performance: 1-3 performance deficits 3-5 performance deficits x 5 + performance deficits Clinical Decision Making: Low Moderate High x Clinical decision making of low complexity using standardized patient assessment instrument and measurable assessment of functional outcome. Pager: [phone] Jorge Goetz OT 10/03/2024 Occupational Therapy Rehabilitation [...] Mccormick MD - 10/02/2024 2:06 PM EST [facility] Operative Note Patient Name: Geovanna Dixon Jr. : [id number] MR#: [id number] Case Date: 10/02/2024 Surgeon: Surgeons and Role: [...] 2nd toe amputation who was transferred from [facility] given concern for infected left fem-BK [...] the groin, we then attached a 15 Occitan Jose drain to the Letcher drain, and remove the Letcher drain, replacing it with the 15 Occitan Jose drain. In a similar way we [...] through: Primary Insurance: [employer] MANAGED MEDICARE Payor: [employer] MANAGED MEDICARE / Plan: WE[employer] MANAGED MEDICARE PPO / Product Type: *No Product type* / Secondary Insurance: N/A Plan for discharge is: Pending Hospital Course and PT/OT Recommendations Outpatient Agency/Support Group Needs: None Home Health Services: Occupational Therapy, Physical Therapy, Registered Nurse Agency Referrals: [facility]. [address] [place] [id number] Transportation: family or friend will provide Barriers to discharge: Global: Denies needs/concerns at this time Plan: Patient is not medically ready related to: patient is going to the OR today for a washout andremains on blowout precautions. Plan going forward is: when able patient will need to work with PT/OT Anticipated Date of Discharge: 10/10/2024 Penny ROSAS RN CM Phone: [phone] Pager: [phone] * Plan of Care - Heidi Mobley [...] output. * Consult Note - Katelyn Oconnor [facility] - 09/30/2024 7:43 AM EST [facility] Pharmacokinetics Note Drug: Vancomycin Pharmacokinetic target: AUC24 (range) 400-600 mg/L.hr Current regimen: 1500 mg IV every 8 hours Geovanna Dixon is a(n) 49 years old male receiving Vancomycin 1500 mg IV every 8 hours for bacteremia Recent measured serum creatinine values: 09/29/2024 23:52 0.48 mg/dL 09/28/2024 23:51 0.52 mg/dL 09/27/2024 23:58 0.48 mg/dL Assessment: Analysis of the most recent level(s) using [employer] gives the following patient-specific pharmacokinetic parameters: CL: [...] Finney MD - 09/29/2024 2:41 PM EST [facility] Operative Note Patient Name: Geovanna Dixon Jr. : [id number] MR#: [id number] Case Date: 09/29/2024 Surgeon: Surgeons and Role: [...] 2nd toe amputation who was transferred from [facility] given concern for infected left fem-BK [...] mobilized and explored. The area around the TICK INSPECTOR was irrigated copiously. The flap was then [...] through: Primary Insurance: WE[employer] MANAGED MEDICARE Payor: [employer] MANAGED MEDICARE / Plan: [employer] MANAGED MEDICARE PPO / Product Type: *No Product type* / Secondary Insurance: N/A Plan for discharge is: Pending Hospital Course and PT/OT Recommendations Outpatient Agency/Support Group Needs: None Home Health Services: Occupational Therapy, Physical Therapy, Registered Nurse Agency Referrals: [facility] [address] [place] [address] Transportation: family or friend will provide Barriers [...] Discharge: 10/04/2024 Penny ROSAS RN CM Phone: [phone] Pager: [phone] * Consult Note - Rose Wright APRN [...] 2nd toe amputation who was transferred from [facility] given concern for infected left fem-BK [...] smoking 1 week ago. He presented to [facility] on 09[place]26 and went to the OR [...] Procedure Component Value - Date/Time Blood culture [[id number]] (Abnormal) Collected: 09/27/242132 Lab Status: Preliminary result Specimen: Blood, Venous Updated: 09/29/24 0721 Blood Culture Methicillin Resistant Staphylococcus aureus Gram Stain Aerobic Bottle: Gram positive cocci in clusters Blood culture [[id number]] (Abnormal) Collected: 09/26/24 1845 Lab Status: Preliminary result Specimen: Blood, Venous Updated: 09/29/24 0719 Blood Culture Methicillin Resistant Staphylococcus aureus Comment: isolated. Susceptibilities previously reported. Gram Stain Aerobic Bottle: Gram positive cocci in clusters Blood culture [[id number]] (Abnormal) (Susceptibility) Collected: 09/26/24 1422 Lab Status: Preliminary result Specimen: Blood, Venous Updated: 09/29/24 0717 Blood Culture Methicillin Resistant Staphylococcus aureus Comment: detected by PCR Isolate saved. If future testing is required, contact the Microbiology Brand Marketing Manager. Gram Stain Aerobic Bottle: Gram positive cocci in clusters Susceptibility Methicillin Resistant Staphylococcus aureus VITEK 2 METHOD Clindamycin Resistant Gentamicin Susceptible [1] Linezolid Susceptible Oxacillin Resistant Trimethoprim/Sulfa Susceptible Vancomycin Susceptible [1] Gentamicin is not appropriate for monotherapy for gram-positive infections. AFB culture [[id number]] Collected: 09/27/24 1654 Lab Status: Preliminary result Specimen: Tissue from Thigh, Left Updated: 09/28/24 2226 Acid Fast Stain No acid fast bacilli seen Anaerobic Culture [[id number]] Collected: 09/27/24 1654 Lab Status: Preliminary result Specimen: Tissue from Thigh, Left Updated: 09/28/24 1355 Anaerobic Culture No anaerobic organisms isolated to date Sonicated Tissue/Implant Culture [[id number]] Collected: 09/26/24 1716 Lab Status: Preliminary result Specimen: Vascular Graft from Leg, Left Updated: 09/28/24 1323 Sonicated Tissue/Implant Culture Culture in progress Tissue Culture, Aerobic Only [[id number]] (Abnormal) Collected: 09/27/24 1654 Lab Status: Preliminary result Specimen: Tissue from Thigh, Left Updated: 09/28/24 1049 Tissue Culture Rare Staphylococcus aureus Gram Stain Few Neutrophils seen No microorganisms seen Abscess/Wound Aspirate Culture, Aerobic Only [[id number]] (Abnormal) (Susceptibility) Collected: 09/26/24 1702 Lab Status: [...] to doxycycline. Abscess/Wound Aspirate Culture, Aerobic Only [[id number]] (Abnormal) (Susceptibility) Collected: 09/26/241649 Lab Status: Preliminary [...] is considered susceptible to doxycycline. Fungus culture [[id number]] Collected: 09/27/241653 Lab Status: Preliminary result Specimen: Tissue from Thigh, Left Updated: 09/28/24 0748 Fungus Culture No fungus isolated to date AFB culture [[id number]] Collected: 09/26/24 170 Lab Status: Preliminary result Specimen: Abscess from Knee, Left Updated: 09/27/24 2335 Acid Fast Stain No acid fast bacilli seen MRSA PCR Screen [[id number]] (Abnormal) Collected: 09/27/24 0751 Lab Status: Final result Specimen: Swab from Nares Updated: 09/27/24 1156 MRSA PCR Detected Narrative: This test was performed using the Xpert MRSA NxG test kit and is run on the Trunk Show GeneXAIM Dx System. This test is cleared by the U.S. Food and Drug Administration for clinical use and its performance characteristics have been verified by the [facility] at [facility]. Anaerobic Culture [[id number]] Collected: 09/26/241649 Lab Status: Preliminary result Specimen: Abscess from Groin, Left Updated: 09/27/24 1142 Anaerobic Culture No anaerobic organisms isolated to date Anaerobic Culture [[id number]] Collected: 09/26/24 170 Lab Status: Preliminary result Specimen: Abscess from Knee, Left Updated: 09/27/24 1142 Anaerobic Culture No anaerobic organisms isolated to date Fungus culture [[id number]] Collected: 09/26/24 1650 Lab Status: Preliminary result Specimen: Abscess from Groin, Left Updated: 09/27/24726 Fungus Culture No fungus isolated to date Fungus culture [[id number]] Collected: 09/26/24 1702 Lab Status: Preliminary result Specimen: Abscess from Knee, Left Updated: 09/27/24726 Fungus Culture No fungus isolated to date New Studies Results for orders placed or performed during the hospital encounter of 09/26/[address] Read CT Lower Extremity (Exam End: 09/26/2024 1:50 PM) Result Value WORKSTATION ID [id number] Impression 1. There is a left femoral [...] have questions please contact the health pet care associate that requested your imaging first. Lower Extremity w Contrast Left (Exam End: 09/27/2024 9:16 AM) Result Value WORKSTATION ID [id number] Impression IMPRESSION: 1. Interval explant of LEFT [...] have questions please contact the health pet care associate that requested your imaging first. 09/28 ABIs [...] 2nd toe amputation who was transferred from [facility] given concern for infected left fem-BK [...] Torres MD - 09/28/2024 12:23 PM EST [facility] Operative Note Patient Name: Geovanna Dixon Jr. : [id number] MR#: [id number] Case Date: 09/28/2024 Surgeon: Surgeons and Role: [...] pericardial patch and PTFE willard over the TICK INSPECTOR was unincorporated. - Resection of prior femoral [...] Destination 1 : Left femoral proximal graft Head Up Operator Helper Leg, Left SURGICAL PATHOLOGY Hayley Torres MD 09/28/2024 1410 2 : Left distal BK pop graft Head Up Operator Helper Leg, Left SURGICAL PATHOLOGY Hayley Torres MD [...] Indications: 49M with history of a left TICK INSPECTOR-BK popliteal artery bypass with PTFE performed in [...] solution. Systemic heparin was administered. Next, the TICK INSPECTOR, SFA, and DFA were clamped. An 11-blade scalpel was used to excise the PTFE graft willard and the prior bovine pericardial patch, and all prior Prolene sutures were removed. Residual plaque in the arterial lumen was removed using a [place] elevator. The harvested vein patch was cut [...] the midline with division of the first varnish thinner, such that the sartorius muscle was free [...] prior bypass graft were irrigated below the Letcher drains. Significant thrombus burden was expelled in [...] Torres MD - 09/28/2024 12:23 PM EST [facility] Operative Note Patient Name: Geovanna Dixon Jr. : [id number] MR#: [id number] Case Date: 09/28/2024 Surgeon: Surgeons and Role: [...] - Prior bovine pericardial patch over the TICK INSPECTOR was unincorporated. - Resection of prior femoral [...] No * Consult Note - Tea Nguyen, [facility] - 09/28/2024 9:23 AM EST [...] Analysis of the most recent level(s) using [employer] gives the following patient-specific pharmacokinetic parameters: CL: [...] Note Patient Name: Geovanna Dixon Jr. : [id number] MR#: [id number] Case Date: 09/27/2024 Surgeon: Surgeons and Role: [...] AEROBIC & ANAEROBIC Hayley Torres MD 09/27/2024 0338 Fluids: Intraprocedure Crystalloid Total None PRBCs: none [...] Torres MD - 09/27/2024 4:27 PM EST [facility] Operative Note Patient Name: Geovanna Dixon Jr. : [id number] MR#: [id number] Case Date: 09/26/2024 Surgeon: Surgeons and Role: [...] distal anastomoses with Prolene tag on latter. Letcher drain placed from left groin to left [...] ANAEROBIC Hayley Torres MD 09/26/2024 1702 Drains: Letcher drain between left groin to left thigh [...] HPI/Surgical Indications: 49M with history of left TICK INSPECTOR-BK popliteal artery bypass graft with PTFE (July [...] the tunnel was milked out. A 0.5 Letcher drain was used to maintain patency of [...] Torres MD - 09/27/2024 4:27 PM EST [facility] Operative Note Patient Name: Geovanna Dixon Jr. : [id number] MR#: [id number] Case Date: 09/27/2024 Surgeon: Surgeons and Role: [...] 2nd toe amputation who was transferred from [facility] given concern for infected left fem-BK [...] smoking 1 week ago. He presented to [facility] on 09/26 and went to the OR [...] MD 10/06/2024 * Consult Note - Fawn Cunningham, [facility] - 09/27/2024 2:39 PM EST Images from [...] management and to provide a review of residential diabetes care. Glargine 25 units administered this [...] outpatient diabetes regimen: Diabetes Provider: PCP in [facility] Medications: Lantus 50 units, lispro [...] Cunningham APRN Endocrinology Diabetes Management Service Pager: [phone] Weekends please page [phone] 80 minute visit was spent in counseling [...] surrogate would be surrogate decision maker per [place] surrogate decision making law. (Only good for 180 days) Any patient receiving care in [place] must abide by [place] law. The hierarchy for surrogate decision making [...] (i) The agent with financial power of city attorney or a conservator appointed in accordance [...] homeless or living in a alf (including now)?: No In the past 12 months has the [employer], oil, or water [employer] threatened to shut off services in your [...] DME: none Home Address confirmed as: [address] [address] Social & Family Supports: All names listed [...] his home before. Health/Prescription Coverage: Primary Insurance: [employer] MANAGED MEDICARE Payor: [employer] MANAGED MEDICARE / Plan: [facility] MANAGED MEDICARE PPO / Product Type: *No Product type* / Secondary Insurance: N/A ; Prescription Coverage: Yes Preferred Pharmacy: [facility] - [place], [place] - [address] [facility] [address] [place] [id number] [facility] [address] [place] [address] - [address] [place] [id number] [place], [place] - [address] [place] [address] [address] [facility] [address] [facility] [address] Status: Patient is a : No Primary Care Provider confirmed: JUSTIN Roberson [phone] Patient/Caregiver Goals of Treatment: patient will need [...] where referrals are placed. Provided patient with [facility] Star Quality Rating handout. They have requested referrals to: [facility]. [address] [place] [id number] Expected date of discharge: TBD Referral routed to the Gasket Supervisor for matching with agency/vendor and to provide [...] and coordination of care as indicated. Penny ORSAS, RN Phone: [phone] Pager: [phone] * Consult Note - Stacey Thomas MD [...] extremity aching prompting him to go to [facility]. The groin pain dissipated. About a week later on 09/26 he developed left-sided groin pain prompting him to go to [facility] once again. Lab work notable for WBC count of 21, lactic acid 3.6. He underwent evaluation with a CT scan demonstrating an abscess from the left groin operative site the entire left of the graft down by the knee. He was transferred to [facility] for further care and he was [...] performed by Thony Garcia MD at [facility] MA[facility] OR PRO BYPASS GRAFT OTHR, FEM-TIBIAL Left 08/01/2024 @BYPASS GRAFT, FEM-ANT TIBIAL, -POST TIBIAL, -PERONEAL, -DP W\ SYNTHETIC CONDUIT (WRVU 23.66) performed by Lisette Maldonado MD at [facility] OR PRO CABG, ARTERY-VEIN, SINGLE 01/04/2012 @CABG, VENOUS & ARTERIAL GRAFT;SINGLE VEIN GRAFT performed by INNA TOVAR at [facility] OR PRO ENDOSCOPY W/VIDEO-ASST VEIN HARVEST, CABG 01/04/2012 ENDOSCOPIC HARVEST VEIN(S) FOR CABG performed by INNA TOVAR at [facility] OR VS ARTERIOGRAM LOWER EXTREMITY VASCULAR SURGERY 07/20/2024 VS Arteriogram Lower Extremity Vascular Surgery 07/20/[address] [facility] INTERVENT[facility] RAD Medications: potassium chloride ER [...] Continuous Infusions: lactated Ringers 100 mL/hr (09/27/24 8464) sodium chloride 0.9% PRN Meds:.potassium chloride ER [...] admitted to SICU as a transfer from [facility] for suspected graft infection/sepsis. A/Ox4, able [...] Torres MD - 09/26/2024 4:50 PM EST [facility] Operative Note Patient Name: Geovanna Dixon Jr. : [id number] MR#: [id number] Case Date: 09/26/2024 Surgeon: Surgeons and Role: * Hayley Torres MD - Primary * Dolly Dan MD - Resident - Assisting * Ken Moeller MD - Resident - Assisting Preoperative diagnosis: left infected femoral to below knee bypass graft Postoperative diagnosis: left infected femoral to below knee bypass graft Procedure: Explant of infected LEFT TICK INSPECTOR to below-knee popliteal artery PTFE bypass graft [...] Indications: 49M with history of a left TICK INSPECTOR-BK popliteal artery bypass with PTFE performed in [...] tunnel using a large Amy clamp, and Letcher drains were used to prevent the tunnel [...] 2nd toe amputation who was transferred from [facility] given concern for infected left fem-BK [...] performed by Thony Garcia MD at [facility] MA[facility] OR PRO BYPASS GRAFT OTHR, FEM-TIBIAL Left 08/01/2024 @BYPASS GRAFT, FEM-ANT TIBIAL, -POST TIBIAL, -PERONEAL, -DP W\ SYNTHETIC CONDUIT (WRVU 23.66) performed by Lisette Maldonado MD at [facility] MAIN OR PRO CABG, ARTERY-VEIN, SINGLE 01/04/2012 @CABG, VENOUS & ARTERIAL GRAFT;SINGLE VEIN GRAFT performed by INNA TOVAR at [facility] MA[facility] OR PRO ENDOSCOPY W/VIDEO-ASST VEIN HARVEST, CABG 01/04/2012 ENDOSCOPIC HARVEST VEIN(S) FOR CABG performed by INNA TOVAR at [facility] MA[facility] OR VS ARTERIOGRAM LOWER EXTREMITY VASCULAR SURGERY 07/20/2024 VS Arteriogram Lower Extremity Vascular Surgery 07/20/[address] [facility] INTERVENTIONL RAD Social Hx: Social History [...] 3 times daily. Use as instructed Indications: [id number] each 1 FreeStyle Lancets 28 gauge Misc [...] 2nd toe amputation who was transferred from [facility] given concern for infected left fem-BK [...] 10/23/2024 1:00 PM EST Appointment XRay at [address] [place] [address] Isabela Hayward APRN [facility] [place] [address] 11/09/2024 1:30 PM EST Office Visit Infectious [place] [address] Isabela Hayward APRN [facility] [place] [address] 11/10/2024 10:00 AM EST Office Visit Vascular [place] [address] Dai Whitman APRN 11/21/2024 2:15 PM EST Office Visit [place] [address] Dayanara Grover MD [facility] [place] [address] Pending Results Name Type Priority Associated Diagnoses [...] Debridement Muscle And Fascia 20 Sq Cm/< (51041) 09/29/2024 2:06 PM EST explanted LLE infected graft Exploration Not Followed By Surg Lower Extremity Artery ([id number]) 09/29/2024 2:06 PM EST explanted LLE infected [...] Non-fasting (10/16/2024) Glucose Lvl - External 124(H) [facility] Blood Urea Nitrogen - External 17 [facility] Creatinine - External 0.9 [facility] EGFR - External 104.05 [facility] Anion Gap - External 11.6(H) [facility] Sodium - External 141 [facility] Potassium - External 4.3 [facility] Chloride - External 103 [facility] CO2 - External 26.4 [facility] Calcium - External 9.0 [facility] Protein, Total - External 6.9 [facility] Albumin - External 3.0(L) [facility] Total Bilirubin - External 0.20 [facility] Alk Phos - External 124(H) [facility] AST (SGOT) - External 12 [facility] ALT (SGPT) - External 22 [facility] Blood VENOUS BLOOD SPECIMEN / Unknown 10/16/2024 Amaya Hernandez MD CHEMISTRY ORDERABLES [place] [id number] [facility] [address] [place], [place] [address] [phone] * CK (10/16/2024) CK, Total - External 39 [facility] Blood VENOUS BLOOD SPECIMEN / Unknown 10/16/2024 Amaya Hernandez MD CHEMISTRY ORDERABLES [address] [place] [address] [phone] * (ABNORMAL) CBC (with Diff) (10/16/2024) WBC - External 10.99(H) [facility] RBC - External 3.71(L) [facility] Hemoglobin - External 10.8(L) [facility] Hematocrit - External 33.8(L) [facility] MCV - External 91 [facility] MCH - External 29.1 [facility] MCHC - External 32.0 [facility] RDWCV - External 14.2(H) [facility] Platelets - External 512(H) [facility] MPV - External 9.8 [facility] NRBC % - External 0.0 [facility] NRBC Abs - External 0.0 [facility] Neutrophils % - External 64.2 [facility] Lymphocytes % - External 25.8 [facility] Monocytes % - External 6.8 [facility] Eosinophils % - External 2.0 [facility] Basophils % - External 0.9 [facility] Immature Gran % - External 0.3 [facility] Neutr ABS (ANC) - External 7.06(H) [facility] Lymphocyte ABS - External 2.84 [facility] Monocyte ABS - External 0.75 [facility] Eosinophil ABS - External 0.22 [facility] Basophil ABS - External 0.10 [facility] Blood VENOUS BLOOD SPECIMEN / Unknown 10/16/2024 Amaya Hernandez MD HEMATOLOGY ORDERABLE S [address] [place], [place] [address] [phone] * POC, GLUCOSE (10/10/2024 4:27 PM EST) Glucometer, POC 172 65 - 199 mg/dL 10/10/2024 4:27 PM EST [facility] Comment:Supplemental ranges: <140 mg/dL before meals <180 mg/dL all other times of the day. Blood CAPILLARY BLOOD / Unknown 10/10/2024 4:27 PM EST 10/10/2024 4:27 PM EST Hayley Torres MD POINT OF CARE TEST O GILDA [facility] [place] [address] * POC, GLUCOSE (10/10/2024 11:10 AM EST) Glucometer, POC 174 65 - 199 mg/dL 10/10/2024 11:11 AM EST [facility] Comment:Supplemental ranges: <140 mg/dL before meals <180 mg/dL all other times of the day. Blood CAPILLARY BLOOD / Unknown 10/10/2024 11:10 AM EST 10/10/2024 11:11 AM EST Hayley Torres MD POINT OF CARE TEST O GILDA Performing Organization Address [facility]/ZIP Co de Phone Number [facility] [place] [address] * POC, GLUCOSE (10/10/2024 7:46 AM EST) Glucometer, POC 141 65 - 199 mg/dL 10/10/2024 7:46 AM EST [facility] Comment:Supplemental ranges: <140 mg/dL before meals <180 mg/dL all other times of the day. Blood CAPILLARY BLOOD / Unknown 10/10/2024 7:46 AM EST 10/10/2024 7:46 AM EST Hayley Torres MD POINT OF CARE TEST O GILDA [facility] [place] [address] * POC, GLUCOSE (10/10/2024 6:11 AM EST) Glucometer, POC 127 65 - 199 mg/dL 10/10/2024 6:11 AM EST [facility] Comment:Supplemental ranges: <140 mg/dL before meals <180 mg/dL all other times of the day. Blood CAPILLARY BLOOD / Unknown 10/10/2024 6:11 AM EST 10/10/2024 6:11 AM EST Hayley Torres MD POINT OF CARE TEST O RDERABLES [facility] [place] [address] * CK (10/10/2024 12:33 AM EST) Pathologist [facility] Creatine Kinase 32 0 - 200 unit/L 10/10/2024 8:54 AM EST [facility] Blood VENOUS BLOOD SPECIMEN / Unknown Venipuncture / Unknown 10/10/2024 12:33 AM EST 10/10/2024 12:43 AM EST María Carranza APRN CHEMISTRY ORDER RANDELL [facility] [place] [address] * (ABNORMAL) CBC (with Diff) (10/10/2024 12:33 AM EST) Pathologist [facility] White Blood Cell 11.57(H) 4.00 - 9.50 x10(3)/mc L 10/10/2024 12:48 AM EST [facility] Red Blood Cell 3.75(L) 4.58 - 5.54 x10(6)/mc L 10/10/2024 12:48 AM EST [facility] Hemoglobin 11.1(L) 13.7 - 16.5 g/dL 10/10/2024 12:48 AM EST [facility] Hematocrit 33.5(L) 40.5 - 48.5 % 10/10/2024 12:[address] [facility] Mean Cell Volume 89.3 82.9 - 93.1 fL 10/10/2024 12:[address] [facility] Mean Cell Hemoglobin 29.6 27.5 - 32.1 pg 10/10/2024 12:[address] [facility] Mean Cell Hemoglobin Concentration 33.1 32.0 - 35.7 g/dL 10/10/2024 12:[address] [facility] Platelet 823(H) 145 - 357 x10(3)/mc L 10/10/2024 12:[address] [facility] Mean Platelet Volume 9.2 7.6 - 12.9 fL 10/10/2024 12:[address] [facility] RDW Standard Deviation 46.3(H) 36.0 - 45.0 fL 10/10/2024 12:[address] [facility] RDW coefficient of variation 14.6(H) 11.4 - 13.8 % 10/10/2024 12:[address] [facility] NRBC% auto 0.0 % 10/10/2024 12:[address] [facility] NRBC Absolute <0.01 <0.01 x10(3)/mc L 10/10/2024 12:[address] [facility] Neutrophil % 61.3 % 10/10/2024 12:[address] [facility] Neutrophil Absolute (ANC) - Automated 7.08(H) 1.70 - 6.10 x10(3)/mc L 10/10/2024 12:[address] [facility] Lymph % 28.7 % 10/10/2024 12:[address] [facility] Lymph Absolute 3.32(H) 0.90 - 3.20 x10(3)/mc L 10/10/2024 12:[address] [facility] Monocyte % 7.0 % 10/10/2024 12:[address] [facility] Monocyte Absolute 0.81 0.30 - 0.90 x10(3)/mc L 10/10/2024 12:[address] [facility] Eos % 1.6 % 10/10/2024 12:[address] [facility] Eos Absolute 0.19 0.00 - 0.40 x10(3)/mc L 10/10/2024 12:[address] [facility] Basophil % 1.0 % 10/10/2024 12:[address] [facility] Baso Absolute 0.12(H) 0.00 - 0.10 x10(3)/mc L 10/10/2024 12:[address] [facility] Immature Gran % 0.4 % 12:[address] [facility] Immature Gran Absolute 0.05(H) 0.00 - 0.04 x10(3)/mc L 10/10/2024 12:[address] [facility] Blood VENOUS BLOOD SPECIMEN / Unknown Venipuncture / Unknown 10/10/2024 12:33 AM EST 10/10/2024 12:43 AM EST Hayley Torres MD HEMATOLOGY ORDERABLE S Performing Organization Address City/State/[facility] Co de Phone Number [facility] [place] [address] * (ABNORMAL) Basic Metabolic Panel (10/10/2024 12:33 AM EST) Pathologist [facility] Glucose 125 65 - 199 mg/dL 10/10/2024 1:[address] [facility] Comment:Glucose Concentratio n >=200 mg/dL plus symptoms is consistent with Diabetes Mellitus. Blood Urea Nitrogen 19 10 - 20 mg/dL 10/10/2024 1:[address] [facility] Creatinine 0.57(L) 0.80 - 1.50 mg/dL 10/10/2024 1:[address] [facility] Sodium 138 135 - 145 mMol/L 10/10/2024 1:12 AM EST [facility] Potassium 4.1 3.5 - 5.0 mMol/L 10/10/2024 1:[address] [facility] Chloride 103 98 - 107 mMol/L 10/10/2024 1:[address] [facility] Carbon Dioxide 25 22 - 31 mMol/L 10/10/2024 1:[address] [facility] Anion Gap 10 5 - 15 mMol/L 10/10/2024 1:[address] [facility] Calcium 9.4 8.5 - 10.5 mg/dL 10/10/2024 1:[address] [facility] Est Glomerular Filtration Rate - Male 119 mL/min/1. 73 m?? 10/10/2024 1:[address] [facility] Comment: This patient's estimated GFR [...] AM EST Hayley Torres MD CHEMISTRY ORDERABLES [facility] [place] [address] * Phosphorus (10/10/2024 12:33 AM EST) Phosphorus 3.8 2.5 - 4.5 mg/dL 10/10/2024 1:[address] [facility] Blood VENOUS BLOOD SPECIMEN / Unknown Venipuncture / Unknown 10/10/2024 12:33 AM EST 10/10/2024 12:43 AM EST Hayley Torres MD CHEMISTRY ORDERABLES Performing Organization Address [facility] Co de Phone Number [facility] [place] [address] * Magnesium (10/10/2024 12:33 AM EST) Magnesium 0.81 0.69 - 1.07 mMol/L 10/10/2024 1:12 AM EST [facility] Blood VENOUS BLOOD SPECIMEN / Unknown Venipuncture / Unknown 10/10/2024 12:33 AM EST 10/10/2024 12:43 AM EST Hayley Torres MD CHEMISTRY ORDERABLES Performing Organization Address [facility] Co de Phone Number [facility] [place] [address] * POC, GLUCOSE (10/10/2024 12:31 AM EST) Glucometer, POC 119 65 - 199 mg/dL 10/10/2024 12:32 AM EST [facility] Comment:Supplemental ranges: <140 mg/dL before meals <180 mg/dL all other times of the day. Blood CAPILLARY BLOOD / Unknown 10/10/2024 12:31 AM EST 10/10/2024 12:32 AM EST Hayley Torres MD POINT OF CARE TEST O RDERABLES Performing Organization Address City/[facility] Co de Phone Number [facility] [place] [address] * POC, GLUCOSE (10/09/2024 8:16 PM EST) Glucometer, POC 104 65 - 199 mg/dL 10/09/2024 8:16 PM EST [facility] Comment:Supplemental ranges: <140 mg/dL before meals <180 mg/dL all other times of the day. Blood CAPILLARY BLOOD / Unknown 10/09/2024 8:16 PM EST 10/09/2024 8:16 PM EST Hayley Torres MD POINT OF CARE TEST Stephanie VO Performing Organization Address [facility] Co de Phone Number [facility] [place] [address] * POC, GLUCOSE (10/09/2024 3:57 PM EST) [facility] Signature Glucometer, POC 120 65 - 199 mg/dL 10/09/2024 3:57 PM EST [facility] Comment:Supplemental ranges: <140 mg/dL before meals <180 mg/dL all other times of the day. Blood CAPILLARY BLOOD / Unknown 10/09/2024 3:57 PM EST 10/09/2024 3:57 PM EST Hayley Torres MD POINT OF CARE TEST Stephanie VO Performing Organization Address [facility] Co de Phone Number [facility] [place] [address] * Place PICC Line: Contact Vascular Access Page [phone] Extremity to exclude: No restrictions; Is PICC [...] to the planned procedure. Hand Hygiene: The spectrographic analyst did perform hand hygiene prior to line insertion. Catheter type: PICC Lot number: [id number] Procedure Technique: Skin was prepped with chlorhexidine. [...] Guidance (IV Team) (10/09/2024 1:55 PM EST) [employer] Signature WORKSTATION ID [id number] RAD Anatomical Region Laterality Modality N/A Radio [...] have questions please contact the health pet care associate that requested your imaging first. ? Narrative [...] who have questions please contactthe health pet care associate that requested your imaging first. María Carranza APRN IMG [facility]ORO [facility] * POC, GLUCOSE (10/09/2024 11:40 AM EST) Glucometer, POC 180 65 - 199 mg/dL 10/09/2024 11:40 AM EST [facility] Comment:Supplemental ranges: <140 mg/dL before meals <180 mg/dL all other times of the day. Blood CAPILLARY BLOOD / Unknown 10/09/2024 11:40 AM EST 10/09/2024 11:41 AM EST Hayley Torres MD POINT OF CARE TEST O RDERAHERNANDEZ Performing Organization Address City/[facility]/ZIP Co de Phone Number [facility] [place] [address] * (ABNORMAL) POC, GLUCOSE (10/09/2024 7:35 AM EST) Glucometer, POC 215(H) 65 - 199 mg/dL 10/09/2024 7:36 AM EST [facility] Comment:Supplemental ranges: <140 mg/dL before meals <180 mg/dL all other times of the day. Blood CAPILLARY BLOOD / Unknown 10/09/2024 7:35 AM EST 10/09/2024 7:36 AM EST Hayley Torres MD POINT OF CARE TEST O RDTYESHA Performing Organization Address City/[facility]/ZIP Co de Phone Number [facility] [place] [address] * POC, GLUCOSE (10/09/2024 4:26 AM EST) Glucometer, POC 175 65 - 199 mg/dL 10/09/2024 4:26 AM EST [facility] Comment:Supplemental ranges: <140 mg/dL before meals <180 mg/dL all other times of the day. Blood CAPILLARY BLOOD / Unknown 10/09/2024 4:26 AM EST 10/09/2024 4:26 AM EST Hayley Torres MD POINT OF CARE TEST O RDERAHERNANDEZ [facility] [place] [address] * (ABNORMAL) CBC (with Diff) (10/09/2024 12:45 AM EST) White Blood Cell 11.27(H) 4.00 - 9.50 x10(3)/mc L 10/09/2024 1:[address] [facility] Red Blood Cell 3.74(L) 4.58 - 5.54 x10(6)/mc L 10/09/2024 1:[address] [facility] Hemoglobin 10.8(L) 13.7 - 16.5 g/dL 10/09/2024 1:[address] [facility] Hematocrit 33.5(L) 40.5 - 48.5 % 10/09/2024 1:[address] [facility] Mean Cell Volume 89.6 82.9 - 93.1 fL 10/09/2024 1:[address] [facility] Mean Cell Hemoglobin 28.9 27.5 - 32.1 pg 10/09/2024 1:[address] [facility] Mean Cell Hemoglobin Concentration 32.2 32.0 - 35.7 g/dL 10/09/2024 1:[address] [facility] Platelet 886(H) 145 - 357 x10(3)/mc L 10/09/2024 1:[address] [facility] Mean Platelet Volume 9.5 7.6 - 12.9 fL 10/09/2024 1:[address] [facility] RDW Standard Deviation 47.7(H) 36.0 - 45.0 fL 10/09/2024 1:[address] [facility] RDW coefficient of variation 14.6(H) 11.4 - 13.8 % 10/09/2024 1:[address] [facility] NRBC% auto 0.0 % 10/09/2024 1:[address] [facility] NRBC Absolute <0.01 <0.01 x10(3)/mc L 10/09/2024 1:[address] [facility] Neutrophil % 61.7 % 10/09/2024 1:[address] [facility] Neutrophil Absolute (ANC) - Automated 6.95(H) 1.70 - 6.10 x10(3)/mc L 10/09/2024 1:[address] [facility] Lymph % 28.3 % 10/09/2024 1:[address] [facility] Lymph Absolute 3.19 0.90 - 3.20 x10(3)/mc L 10/09/2024 1:[address] [facility] Monocyte % 6.8 % 10/09/2024 1:[address] [facility] Monocyte Absolute 0.77 0.30 - 0.90 x10(3)/mc L 10/09/2024 1:[address] [facility] Eos % 1.5 % 10/09/2024 1:[address] [facility] Eos Absolute 0.17 0.00 - 0.40 x10(3)/mc L 10/09/2024 1:[address] [facility] Basophil % 1.1 % 10/09/2024 1:[address] [facility] Baso Absolute 0.12(H) 0.00 - 0.10 x10(3)/mc L 10/09/2024 1:[address] [facility] Immature Gran % 0.6 % 1:[address] [facility] Immature Gran Absolute 0.07(H) 0.00 - 0.04 x10(3)/mc L 10/09/2024 1:[address] [facility] Blood VENOUS BLOOD SPECIMEN / Unknown Venipuncture / Unknown 10/09/2024 12:45 AM EST 10/09/2024 1:27 AM EST Hayley Torres MD HEMATOLOGY ORDERABLE S [facility] [place] [address] * (ABNORMAL) Basic Metabolic Panel (10/09/2024 12:45 AM EST) Glucose 135 65 - 199 mg/dL 10/09/2024 1:54 AM EST [facility] Comment:Glucose Concentratio n >=200 mg/dL plus symptoms is consistent with Diabetes Mellitus. Blood Urea Nitrogen 22(H) 10 - 20 mg/dL 10/09/2024 1:[address] [facility] Creatinine 0.53(L) 0.80 - 1.50 mg/dL 10/09/2024 1:[address] [facility] Sodium 138 135 - 145 mMol/L 10/09/2024 1:[address] [facility] Potassium 4.1 3.5 - 5.0 mMol/L 10/09/2024 1:[address] [facility] Chloride 102 98 - 107 mMol/L 10/09/2024 1:[address] [facility] Carbon Dioxide 24 22 - 31 mMol/L 10/09/2024 1:[address] [facility] Anion Gap 12 5 - 15 mMol/L 10/09/2024 1:[address] [facility] Calcium 9.4 8.5 - 10.5 mg/dL 10/09/2024 1:[address] [facility] Est Glomerular Filtration Rate - Male 122 mL/min/1. 73 m?? 10/09/2024 1:[address] [facility] Comment: This patient's estimated GFR [...] Torres MD CHEMISTRY ORDERABLES Performing Organization Address City/[facility]/ZIP Co de Phone Number [facility] [place] [address] * Phosphorus (10/09/2024 12:45 AM EST) Phosphorus 3.9 2.5 - 4.5 mg/dL 10/09/2024 1:54 AM EST [facility] Blood VENOUS BLOOD SPECIMEN / Unknown Venipuncture / Unknown 10/09/2024 12:45 AM EST 10/09/2024 1:27 AM EST Hayley Torres MD CHEMISTRY ORDERABLES Performing Organization Address City/[facility]/ZIP Co de Phone Number [facility] [place] [address] * Magnesium (10/09/2024 12:45 AM EST) Magnesium 0.80 0.69 - 1.07 mMol/L 10/09/2024 1:54 AM EST [facility] Blood VENOUS BLOOD SPECIMEN / Unknown Venipuncture / Unknown 10/09/2024 12:45 AM EST 10/09/2024 1:27 AM EST Hayley Torres MD CHEMISTRY ORDERABLES Performing Organization Address City/[facility]/ZIP Co de Phone Number [facility] [place] [address] * POC, GLUCOSE (10/09/2024 12:11 AM EST) Glucometer, POC 157 65 - 199 mg/dL 10/09/2024 12:11 AM EST [facility] Comment:Supplemental ranges: <140 mg/dL before meals <180 mg/dL all other times of the day. Blood CAPILLARY BLOOD / Unknown 10/09/2024 12:11 AM EST 10/09/2024 12:11 AM EST Hayley Torres MD POINT OF CARE TEST O GILDA Performing Organization Address [facility] Co de Phone Number [facility] [place] [address] * POC, GLUCOSE (10/08/2024 7:25 PM EST) Glucometer, POC 157 65 - 199 mg/dL 10/08/2024 7:25 PM EST [facility] Comment:Supplemental ranges: <140 mg/dL before meals <180 mg/dL all other times of the day. Blood CAPILLARY BLOOD / Unknown 10/08/2024 7:25 PM EST 10/08/2024 7:25 PM EST Hayley Torres MD POINT OF CARE TEST O GILDA Performing Organization Address [facility] Co de Phone Number [facility] [place] [address] * POC, GLUCOSE (10/08/2024 5:54 PM EST) Glucometer, POC 198 65 - 199 mg/dL 10/08/2024 5:54 PM EST [facility] Comment:Supplemental ranges: <140 mg/dL before meals <180 mg/dL all other times of the day. Blood CAPILLARY BLOOD / Unknown 10/08/2024 5:54 PM EST 10/08/2024 5:54 PM EST Hayley Torres MD POINT OF CARE TEST O GILDA Performing Organization Address City/[facility] Co de Phone Number [facility] [place] [address] * (ABNORMAL) POC, GLUCOSE (10/08/2024 4:08 PM EST) Glucometer, POC 281(H) 65 - 199 mg/dL 10/08/2024 4:08 PM EST [facility] Comment:Supplemental ranges: <140 mg/dL before meals <180 mg/dL all other times of the day. Blood CAPILLARY BLOOD / Unknown 10/08/2024 4:08 PM EST 10/08/2024 4:09 PM EST Hayley Torres MD POINT OF CARE TEST O GILDA Performing Organization Address City/[facility]/ZIP Co de Phone Number [facility] [place] [address] * POC, GLUCOSE (10/08/2024 12:44 PM EST) Glucometer, POC 146 65 - 199 mg/dL 10/08/2024 12:44 PM EST [facility] Comment:Supplemental ranges: <140 mg/dL before meals <180 mg/dL all other times of the day. Blood CAPILLARY BLOOD / Unknown 10/08/2024 12:44 PM EST 10/08/2024 12:44 PM EST Hayley Torres MD POINT OF CARE TEST O GILDA Performing Organization Address [facility] Co de Phone Number [facility] [place] [address] * POC, GLUCOSE (10/08/2024 8:30 AM EST) Glucometer, POC 172 65 - 199 mg/dL 10/08/2024 8:30 AM EST [facility] Comment:Supplemental ranges: <140 mg/dL before meals <180 mg/dL all other times of the day. Blood CAPILLARY BLOOD / Unknown 10/08/2024 8:30 AM EST 10/08/2024 8:30 AM EST Hayley Torres MD POINT OF CARE TEST O GILDA Performing Organization Address City/[facility]/ZIP Co de Phone Number [facility] [place] [address] * Vancomycin Level, Random (10/08/2024 5:59 AM EST) Vancomycin, Random 6.8 mg/L 2023 7:58 AM EST [facility] Comment:This level is for de termination of the patient's vancomycin evew-mlgdc-sno-curve (AUC) value. Contact the inpatient pharmacy for interpretation. Blood VENOUS BLOOD SPECIMEN / Unknown Venipuncture / Unknown 10/08/2024 5:59 AM EST 10/08/2024 7:29 AM EST Hayley Torres MD CHEMISTRY ORDERABLES Performing Organization Address City/[facility]/ZIP Co de Phone Number [facility] [place] [address] * POC, GLUCOSE (10/08/2024 4:02 AM EST) [facility] Glucometer, POC 163 65 - 199 mg/dL 10/08/2024 4:02 AM EST [facility] Comment:Supplemental ranges: <140 mg/dL before meals <180 mg/dL all other times of the day. Blood CAPILLARY BLOOD / Unknown 10/08/2024 4:02 AM EST 10/08/2024 4:02 AM EST Hayley Torres MD POINT OF CARE TEST O RDERABLES Performing Organization Address City/[facility]/ZIP Co de Phone Number [facility] [place] [address] * (ABNORMAL) CBC (with Diff) (10/08/2024 12:08 AM EST) Pathologist [facility] White Blood Cell 10.35(H) 4.00 - 9.50 x10(3)/mc L 10/08/2024 12:29 AM EST [facility] Red Blood Cell 3.53(L) 4.58 - 5.54 x10(6)/mc L 10/08/2024 12:29 AM EST [facility] Hemoglobin 10.2(L) 13.7 - 16.5 g/dL 10/08/2024 12:[address] [facility] Hematocrit 31.7(L) 40.5 - 48.5 % 10/08/2024 12:[address] [facility] Mean Cell Volume 89.8 82.9 - 93.1 fL 10/08/2024 12:[address] [facility] Mean Cell Hemoglobin 28.9 27.5 - 32.1 pg 10/08/2024 12:[address] [facility] Mean Cell Hemoglobin Concentration 32.2 32.0 - 35.7 g/dL 10/08/2024 12:[address] [facility] Platelet 778(H) 145 - 357 x10(3)/mc L 10/08/2024 12:[address] [facility] Mean Platelet Volume 9.1 7.6 - 12.9 fL 10/08/2024 12:[address] [facility] RDW Standard Deviation 47.5(H) 36.0 - 45.0 fL 10/08/2024 12:[address] [facility] RDW coefficient of variation 14.6(H) 11.4 - 13.8 % 10/08/2024 12:[address] [facility] NRBC% auto 0.0 % 10/08/2024 12:[address] [facility] NRBC Absolute <0.01 <0.01 x10(3)/mc L 10/08/2024 12:[address] [facility] Neutrophil % 60.9 % 10/08/2024 12:[address] [facility] Neutrophil Absolute (ANC) - Automated 6.30(H) 1.70 - 6.10 x10(3)/mc L 10/08/2024 12:[address] [facility] Lymph % 28.4 % 10/08/2024 12:[address] [facility] Lymph Absolute 2.94 0.90 - 3.20 x10(3)/mc L 10/08/2024 12:[address] [facility] Monocyte % 7.2 % 10/08/2024 12:[address] [facility] Monocyte Absolute 0.75 0.30 - 0.90 x10(3)/mc L 10/08/2024 12:[address] [facility] Eos % 1.7 % 10/08/2024 12:[address] [facility] Eos Absolute 0.18 0.00 - 0.40 x10(3)/mc L 10/08/2024 12:[address] [facility] Basophil % 1.0 % 10/08/2024 12:[address] [facility] Baso Absolute 0.10 0.00 - 0.10 x10(3)/mc L 10/08/2024 12:[address] [facility] Immature Gran % 0.8 % 12:[address] [facility] Immature Gran Absolute 0.08(H) 0.00 - 0.04 x10(3)/mc L 10/08/2024 12:[address] [facility] Blood VENOUS BLOOD SPECIMEN / Unknown Venipuncture / Unknown 10/08/2024 12:08 AM EST 10/08/2024 12:23 AM EST Hayley Trores MD HEMATOLOGY ORDERABLE S [facility] [place] [address] * (ABNORMAL) Basic Metabolic Panel (10/08/2024 12:08 AM EST) Glucose 151 65 - 199 mg/dL 10/08/2024 12:[address] [facility] Comment:Glucose Concentratio n >=200 mg/dL plus symptoms is consistent with Diabetes Mellitus. Blood Urea Nitrogen 19 10 - 20 mg/dL 10/08/2024 12:[address] [facility] Creatinine 0.60(L) 0.80 - 1.50 mg/dL 10/08/2024 12:[address] [facility] Sodium 135 135 - 145 mMol/L 10/08/2024 12:[address] [facility] Potassium 3.8 3.5 - 5.0 mMol/L 10/08/2024 12:[address] [facility] Chloride 101 98 - 107 mMol/L 10/08/2024 12:[address] [facility] Carbon Dioxide 25 22 - 31 mMol/L 10/08/2024 12:[address] [facility] Anion Gap 9 5 - 15 mMol/L 10/08/2024 12:[address] [facility] Calcium 9.2 8.5 - 10.5 mg/dL 10/08/2024 12:[address] [facility] Est Glomerular Filtration Rate - Male 118 mL/min/1. 73 m?? 10/08/2024 12:[address] [facility] Comment: This patient's estimated GFR [...] AM EST Hayley Torres MD CHEMISTRY ORDERABLES [facility] [place] [address] * Phosphorus (10/08/2024 12:08 AM EST) Phosphorus 3.4 2.5 - 4.5 mg/dL 10/08/2024 12:[address] [facility] Blood VENOUS BLOOD SPECIMEN / Unknown Venipuncture / Unknown 10/08/2024 12:08 AM EST 10/08/2024 12:23 AM EST Hayley Torres MD CHEMISTRY ORDERABLES [facility] [place] [address] * Magnesium (10/08/2024 12:08 AM EST) Magnesium 0.85 0.69 - 1.07 mMol/L 10/08/2024 12:50 AM EST [facility] Blood VENOUS BLOOD SPECIMEN / Unknown Venipuncture / Unknown 10/08/2024 12:08 AM EST 10/08/2024 12:23 AM EST Hayley Torres MD CHEMISTRY ORDERABLES Performing Organization Address City/[facility]/ZIP Co de Phone Number [facility] [place] [address] * CK (10/08/2024 12:08 AM EST) Creatine Kinase 24 0 - 200 unit/L 10/08/2024 12:50 AM EST [facility] Blood VENOUS BLOOD SPECIMEN / Unknown Venipuncture / Unknown 10/08/2024 12:08 AM EST 10/08/2024 12:23 AM EST Hayley Torres MD CHEMISTRY ORDERABLES Performing Organization Address City/[facility]/ZIP Co de Phone Number [facility] [place] [address] * POC, GLUCOSE (10/08/2024 12:05 AM EST) Glucometer, POC 100 65 - 199 mg/dL 10/08/2024 12:05 AM EST [facility] Comment:Supplemental ranges: <140 mg/dL before meals <180 mg/dL all other times of the day. Blood CAPILLARY BLOOD / Unknown 10/08/2024 12:05 AM EST 10/08/2024 12:05 AM EST Hayley Torres MD POINT OF CARE TEST O RDERAHERNANDEZ Performing Organization Address City/[facility]/ZIP Co de Phone Number [facility] [place] [address] * POC, GLUCOSE (10/07/2024 8:29 PM EST) Glucometer, POC 107 65 - 199 mg/dL 10/07/2024 8:30 PM EST [facility] Comment:Supplemental ranges: <140 mg/dL before meals <180 mg/dL all other times of the day. Blood CAPILLARY BLOOD / Unknown 10/07/2024 8:29 PM EST 10/07/2024 8:30 PM EST Hayley Torres MD POINT OF CARE TEST O DIMITRIERAHERNANDEZ Performing Organization Address [facility] Co de Phone Number [facility] [place] [address] * POC, GLUCOSE (10/07/2024 4:33 PM EST) Glucometer, POC 129 65 - 199 mg/dL 10/07/2024 4:33 PM EST [facility] Comment:Supplemental ranges: <140 mg/dL before meals <180 mg/dL all other times of the day. Blood CAPILLARY BLOOD / Unknown 10/07/2024 4:33 PM EST 10/07/2024 4:34 PM EST Hayley Torres MD POINT OF CARE TEST O GILDA Performing Organization Address City/[facility]/ZIP Co de Phone Number [facility] [place] [address] * (ABNORMAL) POC, GLUCOSE (10/07/2024 10:58 AM EST) Glucometer, POC 221(H) 65 - 199 mg/dL 10/07/2024 10:59 AM EST [facility] Comment:Supplemental ranges: <140 mg/dL before meals <180 mg/dL all other times of the day. Blood CAPILLARY BLOOD / Unknown 10/07/2024 10:58 AM EST 10/07/2024 10:59 AM EST Hayley Torres MD POINT OF CARE TEST O RDTYESHA Performing Organization Address City/[facility]/ZIP Co de Phone Number [facility] [place] [address] * (ABNORMAL) POC, GLUCOSE (10/07/2024 7:42 AM EST) Glucometer, POC 201(H) 65 - 199 mg/dL 10/07/2024 7:42 AM EST [facility] Comment:Supplemental ranges: <140 mg/dL before meals <180 mg/dL all other times of the day. Blood CAPILLARY BLOOD / Unknown 10/07/2024 7:42 AM EST 10/07/2024 7:43 AM EST Hayley Torres MD POINT OF CARE TEST O GILDA Performing Organization Address [facility]/ZIP Co de Phone Number [facility] [place] [address] * POC, GLUCOSE (10/07/2024 3:58 AM EST) Glucometer, POC 150 65 - 199 mg/dL 10/07/2024 3:58 AM EST [facility] Comment:Supplemental ranges: <140 mg/dL before meals <180 mg/dL all other times of the day. Blood CAPILLARY BLOOD / Unknown 10/07/2024 3:58 AM EST 10/07/2024 3:58 AM EST Hayley Torres MD POINT OF CARE TEST O GILDA Performing Organization Address City/[facility]/ZIP Co de Phone Number [facility] [place] [address] * (ABNORMAL) CBC (with Diff) (10/07/2024 12:06 AM EST) White Blood Cell 11.27(H) 4.00 - 9.50 x10(3)/mc L 10/07/2024 12:[address] [facility] Red Blood Cell 3.47(L) 4.58 - 5.54 x10(6)/mc L 10/07/2024 12:[address] [facility] Hemoglobin 10.1(L) 13.7 - 16.5 g/dL 10/07/2024 12:[address] [facility] Hematocrit 30.9(L) 40.5 - 48.5 % 10/07/2024 12:[address] [facility] Mean Cell Volume 89.0 82.9 - 93.1 fL 10/07/2024 12:[address] [facility] Mean Cell Hemoglobin 29.1 27.5 - 32.1 pg 10/07/2024 12:[address] [facility] Mean Cell Hemoglobin Concentration 32.7 32.0 - 35.7 g/dL 10/07/2024 12:[address] [facility] Platelet 789(H) 145 - 357 x10(3)/mc L 10/07/2024 12:[address] [facility] Mean Platelet Volume 9.0 7.6 - 12.9 fL 10/07/2024 12:[address] [facility] RDW Standard Deviation 45.7(H) 36.0 - 45.0 fL 10/07/2024 12:[address] [facility] RDW coefficient of variation 14.3(H) 11.4 - 13.8 % 10/07/2024 12:[address] [facility] NRBC% auto 0.0 % 10/07/2024 12:[address] [facility] NRBC Absolute <0.01 <0.01 x10(3)/mc L 10/07/2024 12:[address] [facility] Neutrophil % 62.9 % 10/07/2024 12:[address] [facility] Neutrophil Absolute (ANC) - Automated 7.09(H) 1.70 - 6.10 x10(3)/mc L 10/07/2024 12:19 AM EST [facility] Lymph % 28.3 % 10/07/2024 12:[address] [facility] Lymph Absolute 3.19 0.90 - 3.20 x10(3)/mc L 10/07/2024 12:[address] [facility] Monocyte % 5.7 % 10/07/2024 12:[address] [facility] Monocyte Absolute 0.64 0.30 - 0.90 x10(3)/mc L 10/07/2024 12:[address] [facility] Eos % 1.5 % 10/07/2024 12:[address] [facility] Eos Absolute 0.17 0.00 - 0.40 x10(3)/mc L 10/07/2024 12:[address] [facility] Basophil % 0.7 % 10/07/2024 12:[address] [facility] Baso Absolute 0.08 0.00 - 0.10 x10(3)/mc L 10/07/2024 12:[address] [facility] Immature Gran % 0.9 % 12:[address] [facility] Immature Gran Absolute 0.10(H) 0.00 - 0.04 x10(3)/mc L 10/07/2024 12:[address] [facility] Blood VENOUS BLOOD SPECIMEN / Unknown Venipuncture / Unknown 10/07/2024 12:06 AM EST 10/07/2024 12:11 AM EST Hayley Torres MD HEMATOLOGY ORDERABLE S [facility] [place] [address] * (ABNORMAL) Basic Metabolic Panel (10/07/2024 12:06 AM EST) Glucose 145 65 - 199 mg/dL 10/07/2024 12:[address] [facility] Comment:Glucose Concentratio n >=200 mg/dL plus symptoms is consistent with Diabetes Mellitus. Blood Urea Nitrogen 18 10 - 20 mg/dL 10/07/2024 12:[address] [facility] Creatinine 0.61(L) 0.80 - 1.50 mg/dL 10/07/2024 12:[address] [facility] Sodium 139 135 - 145 mMol/L 10/07/2024 12:[address] [facility] Potassium 4.0 3.5 - 5.0 mMol/L 10/07/2024 12:[address] [facility] Chloride 104 98 - 107 mMol/L 10/07/2024 12:[address] [facility] Carbon Dioxide 25 22 - 31 mMol/L 10/07/2024 12:[address] [facility] Anion Gap 10 5 - 15 mMol/L 10/07/2024 12:[address] [facility] Calcium 9.0 8.5 - 10.5 mg/dL 10/07/2024 12:[address] [facility] Est Glomerular Filtration Rate - Male 117 mL/min/1. 73 m?? 10/07/2024 12:[address] [facility] Comment: This patient's estimated GFR [...] Torres MD CHEMISTRY ORDERABLES Performing Organization Address City/[facility]/ZIP Co de Phone Number [facility] [place] [address] * Phosphorus (10/07/2024 12:06 AM EST) Phosphorus 4.2 2.5 - 4.5 mg/dL 10/07/2024 12:40 AM EST [facility] Blood VENOUS BLOOD SPECIMEN / Unknown Venipuncture / Unknown 10/07/2024 12:06 AM EST 10/07/2024 12:11 AM EST Hayley Torres MD CHEMISTRY ORDERABLES Performing Organization Address [facility] Co de Phone Number [facility] [place] [address] * Magnesium (10/07/2024 12:06 AM EST) Magnesium 0.85 0.69 - 1.07 mMol/L 10/07/2024 12:40 AM EST [facility] Blood VENOUS BLOOD SPECIMEN / Unknown Venipuncture / Unknown 10/07/2024 12:06 AM EST 10/07/2024 12:11 AM EST Hayley Torres MD CHEMISTRY ORDERABLES Performing Organization Address [facility] Co de Phone Number [facility] [place] [address] * POC, GLUCOSE (10/07/2024 12:04 AM EST) Glucometer, POC 149 65 - 199 mg/dL 10/07/2024 12:04 AM EST [facility] Comment:Supplemental ranges: <140 mg/dL before meals <180 mg/dL all other times of the day. Blood CAPILLARY BLOOD / Unknown 10/07/2024 12:04 AM EST 10/07/2024 12:05 AM EST Hayley Torres MD POINT OF CARE TEST O RDERABLES [facility] [place] [address] * POC, GLUCOSE (10/06/2024 7:24 PM EST) Glucometer, POC 151 65 - 199 mg/dL 10/06/2024 7:24 PM EST [facility] Comment:Supplemental ranges: <140 mg/dL before meals <180 mg/dL all other times of the day. Blood CAPILLARY BLOOD / Unknown 10/06/2024 7:24 PM EST 10/06/2024 7:24 PM EST Hayley Torres MD POINT OF CARE TEST O GILDA Performing Organization Address [facility] Co de Phone Number [facility] [place] [address] * POC, GLUCOSE (10/06/2024 5:32 PM EST) Glucometer, POC 126 65 - 199 mg/dL 10/06/2024 5:32 PM EST [facility] Comment:Supplemental ranges: <140 mg/dL before meals <180 mg/dL all other times of the day. Blood CAPILLARY BLOOD / Unknown 10/06/2024 5:32 PM EST 10/06/2024 5:32 PM EST Hayley Torres MD POINT OF CARE TEST O GILDA Performing Organization Address [facility] Co de Phone Number [facility] [place] [address] * XR PICC Placement Over 5 Years with Imaging Guidance (IV Team) (10/06/2024 3:04 PM EST) WORKSTATION ID [id number] DH RAD Anatomical Region Laterality Modality N/A [...] have questions please contact the health pet care associate that requested your imaging first. ? Electronically signed by: Charles Hamilton MD, [facility] ??([phone]), at 10/06/2024 3:43 PM Narrative 10/06/2024 3:43 [...] who have questions please contactthe health pet care associate that requested your imaging first. Hayley Torres MD IMG FLUORO ORDERABLE S * Place PICC Line: Contact Vascular Access Page [phone] Extremity to exclude: No restrictions; Is PICC [...] to the planned procedure. Hand Hygiene: The spectrographic analyst did perform hand hygiene prior to line insertion. Catheter type: PICC Lot number: [id number] Procedure Technique: Skin was prepped with chlorhexidine. [...] - 199 mg/dL 10/06/2024 12:12 PM EST [facility] Comment:Supplemental ranges: <140 mg/dL before meals <180 mg/dL all other times of the day. Blood CAPILLARY BLOOD / Unknown 10/06/2024 12:12 PM EST 10/06/2024 12:12 PM EST Hayley Torres MD POINT OF CARE TEST O GILDA Performing Organization Address [facility] Co de Phone Number [facility] [place] [address] * (ABNORMAL) POC, GLUCOSE (10/06/2024 7:34 AM EST) Glucometer, POC 209(H) 65 - 199 mg/dL 10/06/2024 7:34 AM EST [facility] Comment:Supplemental ranges: <140 mg/dL before meals <180 mg/dL all other times of the day. Blood CAPILLARY BLOOD / Unknown 10/06/2024 7:34 AM EST 10/06/2024 7:34 AM EST Hayley Torres MD POINT OF CARE TEST O GILDA Performing Organization Address [facility] Co de Phone Number [facility] [place] [address] * POC, GLUCOSE (10/06/2024 3:29 AM EST) Glucometer, POC 151 65 - 199 mg/dL 10/06/2024 3:29 AM EST [facility] Comment:Supplemental ranges: <140 mg/dL before meals <180 mg/dL all other times of the day. Blood CAPILLARY BLOOD / Unknown 10/06/2024 3:29 AM EST 10/06/2024 3:29 AM EST Hayley Torres MD POINT OF CARE TEST O RDERABLES Performing Organization Address City/[facility] Co de Phone Number [facility] [place] [address] * Vancomycin Level, Random (10/06/2024 12:03 AM EST) Pathologist [facility] Vancomycin, Random 20.5 mg/L 2023 9:00 AM EST [facility] Comment:This level is for de termination of the patient's vancomycin gicu-gzpqz-btl-curve (AUC) value. Contact the inpatient pharmacy for interpretation. Blood VENOUS BLOOD SPECIMEN / Unknown Venipuncture / Unknown 10/06/2024 12:03 AM EST 10/06/2024 12:15 AM EST Hayley Torres MD CHEMISTRY ORDERABLES Performing Organization Address [facility] Co de Phone Number [facility] [place] [address] * (ABNORMAL) CBC (with Diff) (10/06/2024 12:03 AM EST) White Blood Cell 12.26(H) 4.00 - 9.50 x10(3)/mc L 10/06/2024 12:19 AM EST [facility] Red Blood Cell 3.49(L) 4.58 - 5.54 x10(6)/mc L 10/06/2024 12:19 AM EST [facility] Hemoglobin 10.1(L) 13.7 - 16.5 g/dL 10/06/2024 12:[address] [facility] Hematocrit 30.9(L) 40.5 - 48.5 % 10/06/2024 12:[address] [facility] Mean Cell Volume 88.5 82.9 - 93.1 fL 10/06/2024 12:[address] [facility] Mean Cell Hemoglobin 28.9 27.5 - 32.1 pg 10/06/2024 12:[address] [facility] Mean Cell Hemoglobin Concentration 32.7 32.0 - 35.7 g/dL 10/06/2024 12:[address] [facility] Platelet 772(H) 145 - 357 x10(3)/mc L 10/06/2024 12:[address] [facility] Mean Platelet Volume 9.0 7.6 - 12.9 fL 10/06/2024 12:[address] [facility] RDW Standard Deviation 46.0(H) 36.0 - 45.0 fL 10/06/2024 12:[address] [facility] RDW coefficient of variation 14.5(H) 11.4 - 13.8 % 10/06/2024 12:[address] [facility] NRBC% auto 0.0 % 10/06/2024 12:[address] [facility] NRBC Absolute <0.01 <0.01 x10(3)/mc L 10/06/2024 12:[address] [facility] Neutrophil % 66.7 % 10/06/2024 12:[address] [facility] Neutrophil Absolute (ANC) - Automated 8.18(H) 1.70 - 6.10 x10(3)/mc L 10/06/2024 12:[address] [facility] Lymph % 24.1 % 10/06/2024 12:[address] [facility] Lymph Absolute 2.95 0.90 - 3.20 x10(3)/mc L 10/06/2024 12:[address] [facility] Monocyte % 6.2 % 10/06/2024 12:[address] [facility] Monocyte Absolute 0.76 0.30 - 0.90 x10(3)/mc L 10/06/2024 12:[address] [facility] Eos % 1.3 % 10/06/2024 12:[address] [facility] Eos Absolute 0.16 0.00 - 0.40 x10(3)/mc L 10/06/2024 12:[address] [facility] Basophil % 0.5 % 10/06/2024 12:[address] [facility] Baso Absolute 0.06 0.00 - 0.10 x10(3)/mc L 10/06/2024 12:[address] [facility] Immature Gran % 1.2 % 12:[address] [facility] Immature Gran Absolute 0.15(H) 0.00 - 0.04 x10(3)/mc L 10/06/2024 12:[address] [facility] Blood VENOUS BLOOD SPECIMEN / Unknown Venipuncture / Unknown 10/06/2024 12:03 AM EST 10/06/2024 12:15 AM EST Hayley Torres MD HEMATOLOGY ORDERABLE S Performing Organization Address City/State/[facility] Co de Phone Number [facility] [place] [address] * Basic Metabolic Panel (10/06/2024 12:03 AM EST) Glucose 94 65 - 199 mg/dL 10/06/2024 12:[address] [facility] Comment:Glucose Concentratio n >=200 mg/dL plus symptoms is consistent with Diabetes Mellitus. Blood Urea Nitrogen 17 10 - 20 mg/dL 10/06/2024 12:[address] [facility] Creatinine 0.85 0.80 - 1.50 mg/dL 10/06/2024 12:[address] [facility] Sodium 139 135 - 145 mMol/L 10/06/2024 12:[address] [facility] Potassium 4.3 3.5 - 5.0 mMol/L 10/06/2024 12:[address] [facility] Chloride 103 98 - 107 mMol/L 10/06/2024 12:[address] [facility] Carbon Dioxide 22 22 - 31 mMol/L 10/06/2024 12:[address] [facility] Anion Gap 14 5 - 15 mMol/L 10/06/2024 12:[address] [facility] Calcium 8.8 8.5 - 10.5 mg/dL 10/06/2024 12:[address] [facility] Est Glomerular Filtration Rate - Male 106 mL/min/1. 73 m?? 10/06/2024 12:[address] [facility] Comment: This patient's estimated GFR [...] AM EST Hayley Torres MD CHEMISTRY ORDERABLES [facility] [place] [address] * Phosphorus (10/06/2024 12:03 AM EST) Phosphorus 4.3 2.5 - 4.5 mg/dL 10/06/2024 12:[address] [facility] Blood VENOUS BLOOD SPECIMEN / Unknown Venipuncture / Unknown 10/06/2024 12:03 AM EST 10/06/2024 12:15 AM EST Hayley Torres MD CHEMISTRY ORDERABLES Performing Organization Address City/[facility]/ZIP Co de Phone Number [facility] [place] [address] * Magnesium (10/06/2024 12:03 AM EST) Magnesium 0.83 0.69 - 1.07 mMol/L 10/06/2024 12:44 AM EST [facility] Blood VENOUS BLOOD SPECIMEN / Unknown Venipuncture / Unknown 10/06/2024 12:03 AM EST 10/06/2024 12:15 AM EST Hayley Torres MD CHEMISTRY ORDERABLES Performing Organization Address [facility] Co de Phone Number [facility] [place] [address] * POC, GLUCOSE (10/06/2024 12:02 AM EST) Glucometer, POC 98 65 - 199 mg/dL 10/06/2024 12:02 AM EST [facility] Comment:Supplemental ranges: <140 mg/dL before meals <180 mg/dL all other times of the day. Blood CAPILLARY BLOOD / Unknown 10/06/2024 12:02 AM EST 10/06/2024 12:02 AM EST Hayley Torres MD POINT OF CARE TEST O RDERABLES Performing Organization Address City/[facility]/ZIP Co de Phone Number [facility] [place] [address] * POC, GLUCOSE (10/05/2024 7:22 PM EST) Glucometer, POC 186 65 - 199 mg/dL 10/05/2024 7:23 PM EST [facility] Comment:Supplemental ranges: <140 mg/dL before meals <180 mg/dL all other times of the day. Blood CAPILLARY BLOOD / Unknown 10/05/2024 7:22 PM EST 10/05/2024 7:23 PM EST Hayley Torres MD POINT OF CARE TEST O RDERAHERNANDEZ Performing Organization Address City/[facility] Co de Phone Number [facility] [place] [address] * POC, GLUCOSE (10/05/2024 5:35 PM EST) Glucometer, POC 177 65 - 199 mg/dL 10/05/2024 5:35 PM EST [facility] Comment:Supplemental ranges: <140 mg/dL before meals <180 mg/dL all other times of the day. Blood CAPILLARY BLOOD / Unknown 10/05/2024 5:35 PM EST 10/05/2024 5:35 PM EST Hayley Torres MD POINT OF CARE TEST O GILDA Performing Organization Address [facility] Co de Phone Number [facility] [place] [address] * POC, GLUCOSE (10/05/2024 3:57 PM EST) Glucometer, POC 141 65 - 199 mg/dL 10/05/2024 3:57 PM EST [facility] Comment:Supplemental ranges: <140 mg/dL before meals <180 mg/dL all other times of the day. Blood CAPILLARY BLOOD / Unknown 10/05/2024 3:57 PM EST 10/05/2024 3:57 PM EST Hayley Torres MD POINT OF CARE TEST O GILDA Performing Organization Address City/[facility] Co de Phone Number [facility] [place] [address] * POC, GLUCOSE (10/05/2024 11:50 AM EST) Glucometer, POC 134 65 - 199 mg/dL 10/05/2024 11:50 AM EST [facility] Comment:Supplemental ranges: <140 mg/dL before meals <180 mg/dL all other times of the day. Blood CAPILLARY BLOOD / Unknown 10/05/2024 11:50 AM EST 10/05/2024 11:50 AM EST Hayley Torres MD POINT OF CARE TEST O GILDA Performing Organization Address [facility] Co de Phone Number [facility] [place] [address] * POC, GLUCOSE (10/05/2024 7:51 AM EST) Glucometer, POC 114 65 - 199 mg/dL 10/05/2024 7:51 AM EST [facility] Comment:Supplemental ranges: <140 mg/dL before meals <180 mg/dL all other times of the day. Blood CAPILLARY BLOOD / Unknown 10/05/2024 7:51 AM EST 10/05/2024 7:51 AM EST Hayley Torres MD POINT OF CARE TEST O GILDA Performing Organization Address [facility] de Phone Number [facility] [place] [address] * POC, GLUCOSE (10/05/2024 4:18 AM EST) Glucometer, POC 147 65 - 199 mg/dL 10/05/2024 4:18 AM EST [facility] Comment:Supplemental ranges: <140 mg/dL before meals <180 mg/dL all other times of the day. Blood CAPILLARY BLOOD / Unknown 10/05/2024 4:18 AM EST 10/05/2024 4:18 AM EST Hayley Torres MD POINT OF CARE TEST O GILDA Performing Organization Address [facility] Co de Phone Number [facility] [place] [address] * (ABNORMAL) CBC (with Diff) (10/04/2024 11:50 PM EST) White Blood Cell 12.73(H) 4.00 - 9.50 x10(3)/mc L 10/05/2024 12:[address] [facility] Red Blood Cell 3.45(L) 4.58 - 5.54 x10(6)/mc L 10/05/2024 12:[address] [facility] Hemoglobin 9.8(L) 13.7 - 16.5 g/dL 10/05/2024 12:[address] [facility] Hematocrit 30.6(L) 40.5 - 48.5 % 10/05/2024 12:[address] [facility] Mean Cell Volume 88.7 82.9 - 93.1 fL 10/05/2024 12:[address] [facility] Mean Cell Hemoglobin 28.4 27.5 - 32.1 pg 10/05/2024 12:[address] [facility] Mean Cell Hemoglobin Concentration 32.0 32.0 - 35.7 g/dL 10/05/2024 12:[address] [facility] Platelet 709(H) 145 - 357 x10(3)/mc L 10/05/2024 12:[address] [facility] Mean Platelet Volume 8.9 7.6 - 12.9 fL 10/05/2024 12:[address] [facility] RDW Standard Deviation 45.4(H) 36.0 - 45.0 fL 10/05/2024 12:[address] [facility] RDW coefficient of variation 14.3(H) 11.4 - 13.8 % 10/05/2024 12:[address] [facility] NRBC% auto 0.0 % 10/05/2024 12:[address] [facility] NRBC Absolute <0.01 <0.01 x10(3)/mc L 10/05/2024 12:[address] [facility] Neutrophil % 68.5 % 10/05/2024 12:[address] [facility] Neutrophil Absolute (ANC) - Automated 8.72(H) 1.70 - 6.10 x10(3)/mc L 10/05/2024 12:[address] [facility] Lymph % 21.3 % 10/05/2024 12:[address] [facility] Lymph Absolute 2.71 0.90 - 3.20 x10(3)/mc L 10/05/2024 12:[address] [facility] Monocyte % 5.5 % 10/05/2024 12:[address] [facility] Monocyte Absolute 0.70 0.30 - 0.90 x10(3)/mc L 10/05/2024 12:[address] [facility] Eos % 1.6 % 10/05/2024 12:[address] [facility] Eos Absolute 0.20 0.00 - 0.40 x10(3)/mc L 10/05/2024 12:[address] [facility] Basophil % 0.5 % 10/05/2024 12:[address] [facility] Baso Absolute 0.07 0.00 - 0.10 x10(3)/mc L 10/05/2024 12:[address] [facility] Immature Gran % 2.6 % 12:[address] [facility] Immature Gran Absolute 0.33(H) 0.00 - 0.04 x10(3)/mc L 10/05/2024 12:[address] [facility] Blood VENOUS BLOOD SPECIMEN / Unknown Venipuncture / Unknown 10/04/2024 11:50 PM EST 10/05/2024 12:03 AM EST Hayley Torres MD HEMATOLOGY ORDERABLE S [facility] [place] [address] * (ABNORMAL) Basic Metabolic Panel (10/04/2024 11:50 PM EST) Glucose 104 65 - 199 mg/dL 10/05/2024 12:[address] [facility] Comment:Glucose Concentratio n >=200 mg/dL plus symptoms is consistent with Diabetes Mellitus. Blood Urea Nitrogen 13 10 - 20 mg/dL 10/05/2024 12:[address] [facility] Creatinine 0.55(L) 0.80 - 1.50 mg/dL 10/05/2024 12:[address] [facility] Sodium 140 135 - 145 mMol/L 10/05/2024 12:[address] [facility] Potassium 3.9 3.5 - 5.0 mMol/L 10/05/2024 12:[address] [facility] Chloride 105 98 - 107 mMol/L 10/05/2024 12:[address] [facility] Carbon Dioxide 24 22 - 31 mMol/L 10/05/2024 12:[address] [facility] Anion Gap 11 5 - 15 mMol/L 10/05/2024 12:[address] [facility] Calcium 9.0 8.5 - 10.5 mg/dL 10/05/2024 12:[address] [facility] Est Glomerular Filtration Rate - Male 121 mL/min/1. 73 m?? 10/05/2024 12:[address] [facility] Comment: This patient's estimated GFR [...] AM EST Hayley Torres MD CHEMISTRY ORDERABLES [facility] [place] [address] * Phosphorus (10/04/2024 11:50 PM EST) Phosphorus 4.2 2.5 - 4.5 mg/dL 10/05/2024 12:35 AM EST [facility] Blood VENOUS BLOOD SPECIMEN / Unknown Venipuncture / Unknown 10/04/2024 11:50 PM EST 10/05/2024 12:03 AM EST Hayley Torres MD CHEMISTRY ORDERABLES Performing Organization Address City/[facility]/ZIP Co de Phone Number [facility] [place] [address] * Magnesium (10/04/2024 11:50 PM EST) Magnesium 0.89 0.69 - 1.07 mMol/L 10/05/2024 12:35 AM EST [facility] Blood VENOUS BLOOD SPECIMEN / Unknown Venipuncture / Unknown 10/04/2024 11:50 PM EST 10/05/2024 12:03 AM EST Hayley Torres MD CHEMISTRY ORDERABLES Performing Organization Address [facility]/ZIP Co de Phone Number [facility] [place] [address] * POC, GLUCOSE (10/04/2024 11:36 PM EST) Glucometer, POC 121 65 - 199 mg/dL 10/04/2024 11:36 PM EST [facility] Comment:Supplemental ranges: <140 mg/dL before meals <180 mg/dL all other times of the day. Blood CAPILLARY BLOOD / Unknown 10/04/2024 11:36 PM EST 10/04/2024 11:36 PM EST Hayley Torres MD POINT OF CARE TEST O RDERABLES Performing Organization Address City/[facility]/ZIP Co de Phone Number [facility] [place] [address] * POC, GLUCOSE (10/04/2024 7:32 PM EST) Glucometer, POC 163 65 - 199 mg/dL 10/04/2024 7:32 PM EST [facility] Comment:Supplemental ranges: <140 mg/dL before meals <180 mg/dL all other times of the day. Blood CAPILLARY BLOOD / Unknown 10/04/2024 7:32 PM EST 10/04/2024 7:32 PM EST Hayley Torres MD POINT OF CARE TEST O RDERABLES [facility] [place] [address] * EKG 12 Lead (10/04/2024 7:14 PM EST) Ventricular rate 81 BPM MUSE SYSTEM Atrial Rate 81 BPM MUSE SYSTEM P-R Interval 174 ms MUSE SYSTEM QRS Duration 112 ms MUSE SYSTEM Q-T Interval 422 ms MUSE SYSTEM QTC Calculated (Bezet) 490 ms MUSE SYSTEM Calculated P [place] 34 degrees MUSE SYSTEM Calculated R [place] 11 degrees MUSE SYSTEM Calculated T [place] 59 degrees MUSE SYSTEM INTERPRETATION Normal sinus rhythm Cannot rule out Inferior infarct , age undetermined Nonspecific T wave abnormality Borderline ECG When compared with ECG of 29-MAY-2024 14:51, Nonspecific T wave abnormality now evident in Lateral leads Confirmed by MD Robert, Deandre Guadarrama ([id number]) on 10/05/2024 3:35:42 PM MUSE SYSTEM 10/04/2024 7:14 PM EST 10/05/2024 3:35 PM EST Hayley Torres MD ECG ORDERABLES MUSE SYSTEM * POC, GLUCOSE (10/04/2024 5:07 PM EST) Glucometer, POC 95 65 - 199 mg/dL 10/04/2024 5:07 PM EST [facility] Comment:Supplemental ranges: <140 mg/dL before meals <180 mg/dL all other times of the day. Blood CAPILLARY BLOOD / Unknown 10/04/2024 5:07 PM EST 10/04/2024 5:07 PM EST Hayley Torres MD POINT OF CARE TEST O GILDA Performing Organization Address [facility] Co de Phone Number [facility] [place] [address] * POC, GLUCOSE (10/04/2024 4:49 PM EST) Glucometer, POC 70 65 - 199 mg/dL 10/04/2024 4:50 PM EST [facility] Comment:Supplemental ranges: <140 mg/dL before meals <180 mg/dL all other times of the day. Blood CAPILLARY BLOOD / Unknown 10/04/2024 4:49 PM EST 10/04/2024 4:50 PM EST Hayley Torres MD POINT OF CARE TEST O GILDA Performing Organization Address [facility] Co de Phone Number [facility] [place] [address] * POC, GLUCOSE (10/04/2024 11:49 AM EST) Glucometer, POC 93 65 - 199 mg/dL 10/04/2024 11:49 AM EST [facility] Comment:Supplemental ranges: <140 mg/dL before meals <180 mg/dL all other times of the day. Blood CAPILLARY BLOOD / Unknown 10/04/2024 11:49 AM EST 10/04/2024 11:49 AM EST Hayley Torres MD POINT OF CARE TEST O GILDA Performing Organization Address City/[facility] Co de Phone Number [facility] [place] [address] * Vancomycin, trough (10/04/2024 7:53 AM EST) Vancomycin, Trough 19.8 10.0 - 20.0 mg/L 10/04/2024 9:16 AM EST [facility] Comment: Varies according to infection source. Blood VENOUS BLOOD SPECIMEN / Unknown Venipuncture / Unknown 10/04/2024 7:53 AM EST 10/04/2024 8:11 AM EST Hayley Torres MD CHEMISTRY ORDERABLES Performing Organization Address City/[facility]/ZIP Co de Phone Number [facility] [place] [address] * POC, GLUCOSE (10/04/2024 7:51 AM EST) Glucometer, POC 105 65 - 199 mg/dL 10/04/2024 7:52 AM EST [facility] Comment:Supplemental ranges: <140 mg/dL before meals <180 mg/dL all other times of the day. Blood CAPILLARY BLOOD / Unknown 10/04/2024 7:51 AM EST 10/04/2024 7:52 AM EST Hayley oTrres MD POINT OF CARE TEST O RDERABLES Performing Organization Address [facility] Co de Phone Number [facility] [place] [address] * POC, GLUCOSE (10/04/2024 3:53 AM EST) Glucometer, POC 90 65 - 199 mg/dL 10/04/2024 3:53 AM EST [facility] Comment:Supplemental ranges: <140 mg/dL before meals <180 mg/dL all other times of the day. Blood CAPILLARY BLOOD / Unknown 10/04/2024 3:53 AM EST 10/04/2024 3:53 AM EST Hayley Torres MD POINT OF CARE TEST O RDERABLES Performing Organization Address City/[facility]/ZIP Co de Phone Number [facility] [place] [address] * (ABNORMAL) CBC (with Diff) (10/04/2024 12:08 AM EST) White Blood Cell 12.58(H) 4.00 - 9.50 x10(3)/mc L 10/04/2024 12:[address] [facility] Red Blood Cell 3.28(L) 4.58 - 5.54 x10(6)/mc L 10/04/2024 12:[address] [facility] Hemoglobin 9.4(L) 13.7 - 16.5 g/dL 10/04/2024 12:[address] [facility] Hematocrit 28.8(L) 40.5 - 48.5 % 10/04/2024 12:[address] [facility] Mean Cell Volume 87.8 82.9 - 93.1 fL 10/04/2024 12:[address] [facility] Mean Cell Hemoglobin 28.7 27.5 - 32.1 pg 10/04/2024 12:[address] [facility] Mean Cell Hemoglobin Concentration 32.6 32.0 - 35.7 g/dL 10/04/2024 12:[address] [facility] Platelet 670(H) 145 - 357 x10(3)/mc L 10/04/2024 12:[address] [facility] Mean Platelet Volume 9.1 7.6 - 12.9 fL 10/04/2024 12:[address] [facility] RDW Standard Deviation 44.8 36.0 - 45.0 fL 10/04/2024 12:[address] [facility] RDW coefficient of variation 13.9(H) 11.4 - 13.8 % 10/04/2024 12:[address] [facility] NRBC% auto 0.0 % 10/04/2024 12:[address] [facility] NRBC Absolute <0.01 <0.01 x10(3)/mc L 10/04/2024 12:[address] [facility] Neutrophil % 60.3 % 10/04/2024 12:[address] [facility] Neutrophil Absolute (ANC) - Automated 7.57(H) 1.70 - 6.10 x10(3)/mc L 10/04/2024 12:51 AM EST [facility] Lymph % 27.4 % 10/04/2024 12:51 AM EST [facility] Lymph Absolute 3.45(H) 0.90 - 3.20 x10(3)/mc L 10/04/2024 12:51 AM EST [facility] Monocyte % 5.4 % 10/04/2024 12:51 AM EST [facility] Monocyte Absolute 0.68 0.30 - 0.90 x10(3)/mc L 10/04/2024 12:51 AM EST [facility] Eos % 1.5 % 10/04/2024 12:[address] [facility] Eos Absolute 0.19 0.00 - 0.40 x10(3)/mc L 10/04/2024 12:51 AM EST [facility] Basophil % 0.6 % 10/04/2024 12:51 AM EST [facility] Baso Absolute 0.08 0.00 - 0.10 x10(3)/mc L 10/04/2024 12:51 AM EST [facility] Immature Gran % 4.8 % 12:[address] [facility] Immature Gran Absolute 0.61(H) 0.00 - 0.04 x10(3)/mc L 10/04/2024 12:51 AM EST [facility] Blood VENOUS BLOOD SPECIMEN / Unknown Venipuncture / Unknown 10/04/2024 12:08 AM EST 10/04/2024 12:15 AM EST Hayley Torres MD HEMATOLOGY ORDERABLE S [facility] [place] [address] * (ABNORMAL) Basic Metabolic Panel (10/04/2024 12:08 AM EST) Glucose 135 65 - 199 mg/dL 10/04/2024 12:[address] [facility] Comment:Glucose Concentratio n >=200 mg/dL plus symptoms is consistent with Diabetes Mellitus. Blood Urea Nitrogen 19 10 - 20 mg/dL 10/04/2024 12:[address] [facility] Creatinine 0.56(L) 0.80 - 1.50 mg/dL 10/04/2024 12:[address] [facility] Sodium 138 135 - 145 mMol/L 10/04/2024 12:[address] [facility] Potassium 4.4 3.5 - 5.0 mMol/L 10/04/2024 12:[address] [facility] Chloride 105 98 - 107 mMol/L 10/04/2024 12:[address] [facility] Carbon Dioxide 24 22 - 31 mMol/L 10/04/2024 12:[address] [facility] Anion Gap 9 5 - 15 mMol/L 10/04/2024 12:[address] [facility] Calcium 8.7 8.5 - 10.5 mg/dL 10/04/2024 12:[address] [facility] Est Glomerular Filtration Rate - Male 120 mL/min/1. 73 m?? 10/04/2024 12:[address] [facility] Comment: This patient's estimated GFR [...] AM EST Hayley Torres MD CHEMISTRY ORDERABLES [facility] [place] [address] * Phosphorus (10/04/2024 12:08 AM EST) Phosphorus 3.7 2.5 - 4.5 mg/dL 10/04/2024 12:53 AM EST [facility] Blood VENOUS BLOOD SPECIMEN / Unknown Venipuncture / Unknown 10/04/2024 12:08 AM EST 10/04/2024 12:15 AM EST Hayley Torres MD CHEMISTRY ORDERABLES Performing Organization Address [facility] Co de Phone Number [facility] [place] [address] * Magnesium (10/04/2024 12:08 AM EST) Magnesium 0.89 0.69 - 1.07 mMol/L 10/04/2024 12:53 AM EST [facility] Blood VENOUS BLOOD SPECIMEN / Unknown Venipuncture / Unknown 10/04/2024 12:08 AM EST 10/04/2024 12:15 AM EST Hayley Torres MD CHEMISTRY ORDERABLES Performing Organization Address City/[facility]/ZIP Co de Phone Number [facility] [place] [address] * POC, GLUCOSE (10/04/2024 12:01 AM EST) Glucometer, POC 132 65 - 199 mg/dL 10/04/2024 12:02 AM EST [facility] Comment:Supplemental ranges: <140 mg/dL before meals <180 mg/dL all other times of the day. Blood CAPILLARY BLOOD / Unknown 10/04/2024 12:01 AM EST 10/04/2024 12:02 AM EST Hayley Torres MD POINT OF CARE TEST O RDERABLES [facility] [place] [address] * POC, GLUCOSE (10/03/2024 7:56 PM EST) Glucometer, POC 123 65 - 199 mg/dL 10/03/2024 7:56 PM EST [facility] Comment:Supplemental ranges: <140 mg/dL before meals <180 mg/dL all other times of the day. Blood CAPILLARY BLOOD / Unknown 10/03/2024 7:56 PM EST 10/03/2024 7:57 PM EST Hayley Torres MD POINT OF CARE TEST O GILDA Performing Organization Address [facility] de Phone Number [facility] [place] [address] * POC, GLUCOSE (10/03/2024 5:29 PM EST) Glucometer, POC 182 65 - 199 mg/dL 10/03/2024 5:30 PM EST [facility] Comment:Supplemental ranges: <140 mg/dL before meals <180 mg/dL all other times of the day. Blood CAPILLARY BLOOD / Unknown 10/03/2024 5:29 PM EST 10/03/2024 5:30 PM EST Hayley Torres MD POINT OF CARE TEST O GILDA Performing Organization Address [facility] Co de Phone Number [facility] [place] [address] * POC, GLUCOSE (10/03/2024 12:54 PM EST) Glucometer, POC 128 65 - 199 mg/dL 10/03/2024 12:54 PM EST [facility] Comment:Supplemental ranges: <140 mg/dL before meals <180 mg/dL all other times of the day. Blood CAPILLARY BLOOD / Unknown 10/03/2024 12:54 PM EST 10/03/2024 12:54 PM EST Hayley Torres MD POINT OF CARE TEST O RDERAHERNANDEZ Performing Organization Address City/[facility]/ZIP Co de Phone Number [facility] [place] [address] * POC, GLUCOSE (10/03/2024 7:59 AM EST) Glucometer, POC 115 65 - 199 mg/dL 10/03/2024 7:59 AM EST [facility] Comment:Supplemental ranges: <140 mg/dL before meals <180 mg/dL all other times of the day. Blood CAPILLARY BLOOD / Unknown 10/03/2024 7:59 AM EST 10/03/2024 7:59 AM EST Hayley Torres MD POINT OF CARE TEST O GILDA Performing Organization Address [facility] Co de Phone Number [facility] [place] [address] * POC, GLUCOSE (10/03/2024 5:32 AM EST) Glucometer, POC 119 65 - 199 mg/dL 10/03/2024 5:32 AM EST [facility] Comment:Supplemental ranges: <140 mg/dL before meals <180 mg/dL all other times of the day. Blood CAPILLARY BLOOD / Unknown 10/03/2024 5:32 AM EST 10/03/2024 5:32 AM EST Hayley Torres MD POINT OF CARE TEST O GILDA Performing Organization Address City/[facility]/ZIP Co de Phone Number [facility] [place] [address] * POC, GLUCOSE (10/03/2024 4:16 AM EST) Glucometer, POC 152 65 - 199 mg/dL 10/03/2024 4:17 AM EST [facility] Comment:Supplemental ranges: <140 mg/dL before meals <180 mg/dL all other times of the day. Blood CAPILLARY BLOOD / Unknown 10/03/2024 4:16 AM EST 10/03/2024 4:17 AM EST Hayley Torres MD POINT OF CARE TEST O GILDA Performing Organization Address City/[facility]/ZIP Co de Phone Number [facility] [place] [address] * (ABNORMAL) POC, GLUCOSE (10/03/2024 2:02 AM EST) [facility] Glucometer, POC 225(H) 65 - 199 mg/dL 10/03/2024 2:02 AM EST [facility] Comment:Supplemental ranges: <140 mg/dL before meals <180 mg/dL all other times of the day. Blood CAPILLARY BLOOD / Unknown 10/03/2024 2:02 AM EST 10/03/2024 2:02 AM EST Hayley Torres MD POINT OF CARE TEST O GILDA [facility] [place] [address] * (ABNORMAL) CBC (with Diff) (10/03/2024 12:27 AM EST) [facility] White Blood Cell 15.33(H) 4.00 - 9.50 x10(3)/mc L 10/03/2024 12:[address] [facility] Red Blood Cell 3.59(L) 4.58 - 5.54 x10(6)/mc L 10/03/2024 12:[address] [facility] Hemoglobin 10.4(L) 13.7 - 16.5 g/dL 10/03/2024 12:[address] [facility] Hematocrit 31.2(L) 40.5 - 48.5 % 10/03/2024 12:[address] [facility] Mean Cell Volume 86.9 82.9 - 93.1 fL 10/03/2024 12:[address] [facility] Mean Cell Hemoglobin 29.0 27.5 - 32.1 pg 10/03/2024 12:[address] [facility] Mean Cell Hemoglobin Concentration 33.3 32.0 - 35.7 g/dL 10/03/2024 12:[address] [facility] Platelet 693(H) 145 - 357 x10(3)/mc L 10/03/2024 12:[address] [facility] Mean Platelet Volume 9.2 7.6 - 12.9 fL 10/03/2024 12:[address] [facility] RDW Standard Deviation 42.4 36.0 - 45.0 fL 10/03/2024 12:[address] [facility] RDW coefficient of variation 13.6 11.4 - 13.8 % 10/03/2024 12:[address] [facility] NRBC% auto 0.0 % 10/03/2024 12:[address] [facility] NRBC Absolute <0.01 <0.01 x10(3)/mc L 10/03/2024 12:[address] [facility] Neutrophil % 77.1 % 10/03/2024 12:[address] [facility] Neutrophil Absolute (ANC) - Automated 11.83(H) 1.70 - 6.10 x10(3)/mc L 10/03/2024 12:[address] [facility] Lymph % 13.4 % 10/03/2024 12:[address] [facility] Lymph Absolute 2.05 0.90 - 3.20 x10(3)/mc L 10/03/2024 12:[address] [facility] Monocyte % 2.9 % 10/03/2024 12:[address] [facility] Monocyte Absolute 0.45 0.30 - 0.90 x10(3)/mc L 10/03/2024 12:[address] [facility] Eos % 0.5 % 10/03/2024 12:[address] [facility] Eos Absolute 0.07 0.00 - 0.40 x10(3)/mc L 10/03/2024 12:51 AM EST [facility] Basophil % 0.4 % 10/03/2024 12:51 AM EST [facility] Baso Absolute 0.06 0.00 - 0.10 x10(3)/mc L 10/03/2024 12:51 AM EST [facility] Immature Gran % 5.7 % 12:[address] [facility] Immature Gran Absolute 0.87(H) 0.00 - 0.04 x10(3)/mc L 10/03/2024 12:[address] [facility] Blood VENOUS BLOOD SPECIMEN / Unknown Venipuncture / Unknown 10/03/2024 12:27 AM EST 10/03/2024 12:47 AM EST Hayley Torres MD HEMATOLOGY ORDERABLE S [facility] [place] [address] * (ABNORMAL) Basic Metabolic Panel (10/03/2024 12:27 AM EST) Glucose 208(H) 65 - 199 mg/dL 10/03/2024 1:[address] [facility] Comment:Glucose Concentratio n >=200 mg/dL plus symptoms is consistent with Diabetes Mellitus. Blood Urea Nitrogen 15 10 - 20 mg/dL 10/03/2024 1:[address] [facility] Creatinine 0.51(L) 0.80 - 1.50 mg/dL 10/03/2024 1:[address] [facility] Sodium 136 135 - 145 mMol/L 10/03/2024 1:[address] [facility] Potassium 4.1 3.5 - 5.0 mMol/L 10/03/2024 1:[address] [facility] Chloride 103 98 - 107 mMol/L 10/03/2024 1:[address] [facility] Carbon Dioxide 20(L) 22 - 31 mMol/L 10/03/2024 1:14 AM EST [facility] Anion Gap 13 5 - 15 mMol/L 10/03/2024 1:14 AM EST [facility] Calcium 8.4(L) 8.5 - 10.5 mg/dL 10/03/2024 1:14 AM EST [facility] Est Glomerular Filtration Rate - Male 124 mL/min/1. 73 m?? 10/03/2024 1:14 AM EST [facility] Comment: This patient's [...] AM EST Hayley Torres MD CHEMISTRY ORDERABLES [facility] [place] [address] * Phosphorus (10/03/2024 12:27 AM EST) Phosphorus 3.5 2.5 - 4.5 mg/dL 10/03/2024 1:14 AM EST [facility] Blood VENOUS BLOOD SPECIMEN / Unknown Venipuncture / Unknown 10/03/2024 12:27 AM EST 10/03/2024 12:47 AM EST Hayley Torres MD CHEMISTRY ORDERABLES [facility] [place] [address] * Magnesium (10/03/2024 12:27 AM EST) Magnesium 0.83 0.69 - 1.07 mMol/L 10/03/2024 1:14 AM EST [facility] Blood VENOUS BLOOD SPECIMEN / Unknown Venipuncture / Unknown 10/03/2024 12:27 AM EST 10/03/2024 12:47 AM EST Hayley Torres MD CHEMISTRY ORDERABLES [facility] [place] [address] * (ABNORMAL) POC, GLUCOSE (10/03/2024 12:13 AM EST) Glucometer, POC 255(H) 65 - 199 mg/dL 10/03/2024 12:14 AM EST [facility] Comment:Supplemental ranges: <140 mg/dL before meals <180 mg/dL all other times of the day. Blood CAPILLARY BLOOD / Unknown 10/03/2024 12:13 AM EST 10/03/2024 12:14 AM EST Hayley Torres MD POINT OF CARE TEST O RDERABLES Performing Organization Address City/[facility]/ZIP Co de Phone Number [facility] [place] [address] * POC, GLUCOSE (10/02/2024 8:17 PM EST) Glucometer, POC 177 65 - 199 mg/dL 10/02/2024 8:17 PM EST [facility] Comment:Supplemental ranges: <140 mg/dL before meals <180 mg/dL all other times of the day. Blood CAPILLARY BLOOD / Unknown 10/02/2024 8:17 PM EST 10/02/2024 8:17 PM EST Hayley Torres MD POINT OF CARE TEST O RDERAHERNANDEZ [facility] [place] [address] * POC, GLUCOSE (10/02/2024 6:22 PM EST) Glucometer, POC 172 65 - 199 mg/dL 10/02/2024 6:22 PM EST [facility] Comment:Supplemental ranges: <140 mg/dL before meals <180 mg/dL all other times of the day. Blood CAPILLARY BLOOD / Unknown 10/02/2024 6:22 PM EST 10/02/2024 6:22 PM EST Hayley Torres MD POINT OF CARE TEST O GILDA Performing Organization Address City/[facility]/ZIP Co de Phone Number [facility] [place] [address] * POC, GLUCOSE (10/02/2024 5:01 PM EST) Glucometer, POC 104 65 - 199 mg/dL 10/02/2024 5:01 PM EST [facility] Comment:Supplemental ranges: <140 mg/dL before meals <180 mg/dL all other times of the day. Blood CAPILLARY BLOOD / Unknown 10/02/2024 5:01 PM EST 10/02/2024 5:01 PM EST Hayley Torres MD POINT OF CARE TEST O GILDA [facility] [place] [address] * POC, GLUCOSE (10/02/2024 3:05 PM EST) Glucometer, POC 113 65 - 199 mg/dL 10/02/2024 3:06 PM EST [facility] Comment:Supplemental ranges: <140 mg/dL before meals <180 mg/dL all other times of the day. Blood CAPILLARY BLOOD / Unknown 10/02/2024 3:05 PM EST 10/02/2024 3:06 PM EST Hayley Torres MD POINT OF CARE TEST O RDERAHERNANDEZ Performing Organization Address City/[facility] Co de Phone Number [facility] [place] [address] * POC, GLUCOSE (10/02/2024 11:12 AM EST) Glucometer, POC 146 65 - 199 mg/dL 10/02/2024 11:12 AM EST [facility] Comment:Supplemental ranges: <140 mg/dL before meals <180 mg/dL all other times of the day. Blood CAPILLARY BLOOD / Unknown 10/02/2024 11:12 AM EST 10/02/2024 11:12 AM EST Hayley Torres MD POINT OF CARE TEST O GILDA Performing Organization Address [facility] Co de Phone Number [facility] [place] [address] * POC, GLUCOSE (10/02/2024 8:12 AM EST) Glucometer, POC 131 65 - 199 mg/dL 10/02/2024 8:12 AM EST [facility] Comment:Supplemental ranges: <140 mg/dL before meals <180 mg/dL all other times of the day. Blood CAPILLARY BLOOD / Unknown 10/02/2024 8:12 AM EST 10/02/2024 8:12 AM EST Hayley Torres MD POINT OF CARE TEST O GILDA Performing Organization Address City/[facility] Co de Phone Number [facility] [place] [address] * POC, GLUCOSE (10/02/2024 4:19 AM EST) Glucometer, POC 131 65 - 199 mg/dL 10/02/2024 4:19 AM EST [facility] Comment:Supplemental ranges: <140 mg/dL before meals <180 mg/dL all other times of the day. Blood CAPILLARY BLOOD / Unknown 10/02/2024 4:19 AM EST 10/02/2024 4:19 AM EST Hayley Torres MD POINT OF CARE TEST O RDERABLES [facility] [place] [address] * Phosphorus (10/02/2024 12:41 AM EST) Phosphorus 4.1 2.5 - 4.5 mg/dL 10/02/2024 1:21 AM EST [facility] Blood VENOUS BLOOD SPECIMEN / Unknown Venipuncture / Unknown 10/02/2024 12:41 AM EST 10/02/2024 12:45 AM EST Hayley Torres MD CHEMISTRY ORDERABLES Performing Organization Address [facility] Co de Phone Number [facility] [place] [address] * Magnesium (10/02/2024 12:41 AM EST) Magnesium 0.85 0.69 - 1.07 mMol/L 10/02/2024 1:21 AM EST [facility] Blood VENOUS BLOOD SPECIMEN / Unknown Venipuncture / Unknown 10/02/2024 12:41 AM EST 10/02/2024 12:45 AM EST Hayley Torres MD CHEMISTRY ORDERABLES Performing Organization Address City/[facility]/ZIP Co de Phone Number [facility] [place] [address] * (ABNORMAL) Basic Metabolic Panel (10/02/2024 12:41 AM EST) Glucose 113 65 - 199 mg/dL 10/02/2024 1:21 AM EST [facility] Comment:Glucose Concentratio n >=200 mg/dL plus symptoms is consistent with Diabetes Mellitus. Blood Urea Nitrogen 11 10 - 20 mg/dL 10/02/2024 1:21 AM EST [facility] Creatinine 0.49(L) 0.80 - 1.50 mg/dL 10/02/2024 1:21 AM EST [facility] Sodium 138 135 - 145 mMol/L 10/02/2024 1:[address] [facility] Potassium 3.9 3.5 - 5.0 mMol/L 10/02/2024 1:[address] [facility] Chloride 105 98 - 107 mMol/L 10/02/2024 1:[address] [facility] Carbon Dioxide 23 22 - 31 mMol/L 10/02/2024 1:[address] [facility] Anion Gap 10 5 - 15 mMol/L 10/02/2024 1:[address] [facility] Calcium 8.2(L) 8.5 - 10.5 mg/dL 10/02/2024 1:[address] [facility] Est Glomerular Filtration Rate - Male 125 mL/min/1. 73 m?? 10/02/2024 1:[address] [facility] Comment: This patient's estimated GFR [...] AM EST Hayley Torres MD CHEMISTRY ORDERABLES [facility] [place] [address] * (ABNORMAL) CBC (with Diff) (10/02/2024 12:41 AM EST) [facility] White Blood Cell 10.93(H) 4.00 - 9.50 x10(3)/mc L 10/02/2024 1:[address] [facility] Red Blood Cell 3.30(L) 4.58 - 5.54 x10(6)/mc L 10/02/2024 1:[address] [facility] Hemoglobin 9.6(L) 13.7 - 16.5 g/dL 10/02/2024 1:[address] [facility] Hematocrit 28.6(L) 40.5 - 48.5 % 10/02/2024 1:[address] [facility] Mean Cell Volume 86.7 82.9 - 93.1 fL 10/02/2024 1:[address] [facility] Mean Cell Hemoglobin 29.1 27.5 - 32.1 pg 10/02/2024 1:[address] [facility] Mean Cell Hemoglobin Concentration 33.6 32.0 - 35.7 g/dL 10/02/2024 1:[address] [facility] Platelet 546(H) 145 - 357 x10(3)/mc L 10/02/2024 1:[address] [facility] Mean Platelet Volume 9.0 7.6 - 12.9 fL 10/02/2024 1:[address] [facility] RDW Standard Deviation 42.7 36.0 - 45.0 fL 10/02/2024 1:[address] [facility] RDW coefficient of variation 13.3 11.4 - 13.8 % 10/02/2024 1:[address] [facility] NRBC% auto 0.0 % 10/02/2024 1:[address] [facility] NRBC Absolute <0.01 <0.01 x10(3)/mc L 10/02/2024 1:[address] [facility] Neutrophil % 58.4 % 10/02/2024 1:[address] [facility] Neutrophil Absolute (ANC) - Automated 6.38(H) 1.70 - 6.10 x10(3)/mc L 10/02/2024 1:[address] [facility] Lymph % 23.9 % 10/02/2024 1:[address] [facility] Lymph Absolute 2.61 0.90 - 3.20 x10(3)/mc L 10/02/2024 1:[address] [facility] Monocyte % 5.6 % 10/02/2024 1:[address] [facility] Monocyte Absolute 0.61 0.30 - 0.90 x10(3)/mc L 10/02/2024 1:[address] [facility] Eos % 1.6 % 10/02/2024 1:[address] [facility] Eos Absolute 0.18 0.00 - 0.40 x10(3)/mc L 10/02/2024 1:[address] [facility] Basophil % 0.8 % 10/02/2024 1:[address] [facility] Baso Absolute 0.09 0.00 - 0.10 x10(3)/mc L 10/02/2024 1:[address] [facility] Immature Gran % 9.7 % 1:[address] [facility] Immature Gran Absolute 1.06(H) 0.00 - 0.04 x10(3)/mc L 10/02/2024 1:[address] [facility] Blood VENOUS BLOOD SPECIMEN / Unknown Venipuncture / Unknown 10/02/2024 12:41 AM EST 10/02/2024 12:45 AM EST Hayley Torres MD HEMATOLOGY ORDERABLE S [facility] [place] [address] * POC, GLUCOSE (10/02/2024 12:40 AM EST) [facility] Signature Glucometer, POC 116 65 - 199 mg/dL 10/02/2024 12:41 AM EST [facility] Comment:Supplemental ranges: <140 mg/dL before meals <180 mg/dL all other times of the day. Blood CAPILLARY BLOOD / Unknown 10/02/2024 12:40 AM EST 10/02/2024 12:41 AM EST Hayley Torres MD POINT OF CARE TEST O GILDA Performing Organization Address City/[facility]/ZIP Co de Phone Number [facility] [place] [address] * POC, GLUCOSE (10/01/2024 8:11 PM EST) Glucometer, POC 123 65 - 199 mg/dL 10/01/2024 8:11 PM EST [facility] Comment:Supplemental ranges: <140 mg/dL before meals <180 mg/dL all other times of the day. Blood CAPILLARY BLOOD / Unknown 10/01/2024 8:11 PM EST 10/01/2024 8:11 PM EST Hayley Torres MD POINT OF CARE TEST O GILDA Performing Organization Address [facility] Co de Phone Number [facility] [place] [address] * POC, GLUCOSE (10/01/2024 6:00 PM EST) Glucometer, POC 112 65 - 199 mg/dL 10/01/2024 6:00 PM EST [facility] Comment:Supplemental ranges: <140 mg/dL before meals <180 mg/dL all other times of the day. Blood CAPILLARY BLOOD / Unknown 10/01/2024 6:00 PM EST 10/01/2024 6:00 PM EST Hayley Torres MD POINT OF CARE TEST O GILDA Performing Organization Address City/[facility]/ZIP Co de Phone Number [facility] [place] [address] * POC, GLUCOSE (10/01/2024 3:53 PM EST) Glucometer, POC 97 65 - 199 mg/dL 10/01/2024 3:53 PM EST [facility] Comment:Supplemental ranges: <140 mg/dL before meals <180 mg/dL all other times of the day. Blood CAPILLARY BLOOD / Unknown 10/01/2024 3:53 PM EST 10/01/2024 3:53 PM EST Hayley Torres MD POINT OF CARE TEST O DIMITRIERAHERNANDEZ Performing Organization Address City/[facility]/ZIP Co de Phone Number [facility] [place] [address] * POC, GLUCOSE (10/01/2024 2:25 PM EST) Glucometer, POC 117 65 - 199 mg/dL 10/01/2024 2:25 PM EST [facility] Comment:Supplemental ranges: <140 mg/dL before meals <180 mg/dL all other times of the day. Blood CAPILLARY BLOOD / Unknown 10/01/2024 2:25 PM EST 10/01/2024 2:25 PM EST Hayley Torres MD POINT OF CARE TEST O GILDA Performing Organization Address City/[facility]/ZIP Co de Phone Number [facility] [place] [address] * POC, GLUCOSE (10/01/2024 11:43 AM EST) Glucometer, POC 174 65 - 199 mg/dL 10/01/2024 11:43 AM EST [facility] Comment:Supplemental ranges: <140 mg/dL before meals <180 mg/dL all other times of the day. Blood CAPILLARY BLOOD / Unknown 10/01/2024 11:43 AM EST 10/01/2024 11:43 AM EST Hayley Torres MD POINT OF CARE TEST O GILDA [facility] [place] [address] * POC, GLUCOSE (10/01/2024 9:43 AM EST) Glucometer, POC 191 65 - 199 mg/dL 10/01/2024 9:43 AM EST [facility] Comment:Supplemental ranges: <140 mg/dL before meals <180 mg/dL all other times of the day. Blood CAPILLARY BLOOD / Unknown 10/01/2024 9:43 AM EST 10/01/2024 9:43 AM EST Hayley Torres MD POINT OF CARE TEST O GILDA Performing Organization Address [facility] de Phone Number [facility] [place] [address] * POC, GLUCOSE (10/01/2024 7:48 AM EST) Glucometer, POC 151 65 - 199 mg/dL 10/01/2024 7:48 AM EST [facility] Comment:Supplemental ranges: <140 mg/dL before meals <180 mg/dL all other times of the day. Blood CAPILLARY BLOOD / Unknown 10/01/2024 7:48 AM EST 10/01/2024 7:48 AM EST Hayley Torres MD POINT OF CARE TEST O GILDA Performing Organization Address [facility] Co de Phone Number [facility] [place] [address] * POC, GLUCOSE (10/01/2024 4:25 AM EST) Glucometer, POC 133 65 - 199 mg/dL 10/01/2024 4:26 AM EST [facility] Comment:Supplemental ranges: <140 mg/dL before meals <180 mg/dL all other times of the day. Blood CAPILLARY BLOOD / Unknown 10/01/2024 4:25 AM EST 10/01/2024 4:26 AM EST Hayley Torres MD POINT OF CARE TEST O RDERABLES [facility] [place] [address] * Phosphorus (10/01/2024 2:02 AM EST) Pathologist [facility] Phosphorus 3.9 2.5 - 4.5 mg/dL 10/01/2024 7:16 AM EST [facility] Blood VENOUS BLOOD SPECIMEN / Unknown Venipuncture / Unknown 10/01/2024 2:02 AM EST 10/01/2024 2:10 AM EST Hayley Torres MD CHEMISTRY ORDERABLES Performing Organization Address [facility] Co de Phone Number [facility] [place] [address] * (ABNORMAL) Scan, Peripheral Blood (10/01/2024 2:02 AM EST) [facility] RBC Morphology Abnormal 10/01/2024 2:55 AM EST [facility] Platelet Estimate Increased(A) Normal 10/01 2:55 AM EST [facility] Polychromasia Present 10/01/2024 2:55 AM EST [facility] Platelet Clumps Present(A) (none) 2:55 AM EST [facility] Blood VENOUS BLOOD SPECIMEN / Unknown Venipuncture / Unknown 10/01/2024 2:02 AM EST 10/01/2024 2:10 AM EST Hayley Torres MD HEMATOLOGY ORDERABLE S Performing Organization Address City/[facility]/ZIP Co de Phone Number [facility] [place] [address] * Magnesium (10/01/2024 2:02 AM EST) Pathologist [facility] Magnesium 0.79 0.69 - 1.07 mMol/L 10/01/2024 2:41 AM EST [facility] Blood VENOUS BLOOD SPECIMEN / Unknown Venipuncture / Unknown 10/01/2024 2:02 AM EST 10/01/2024 2:10 AM EST Hayley Torres MD CHEMISTRY ORDERABLES [facility] [place] [address] * (ABNORMAL) Basic Metabolic Panel (10/01/2024 2:02 AM EST) Glucose 122 65 - 199 mg/dL 10/01/2024 2:41 AM EST [facility] Comment:Glucose Concentratio n >=200 mg/dL plus symptoms is consistent with Diabetes Mellitus. Blood Urea Nitrogen 10 10 - 20 mg/dL 10/01/2024 2:[address] [facility] Creatinine 0.47(L) 0.80 - 1.50 mg/dL 10/01/2024 2:41 AM EST [facility] Sodium 138 135 - 145 mMol/L 10/01/2024 2:[address] [facility] Potassium 3.9 3.5 - 5.0 mMol/L 10/01/2024 2:[address] [facility] Chloride 105 98 - 107 mMol/L 10/01/2024 2:[address] [facility] Carbon Dioxide 24 22 - 31 mMol/L 10/01/2024 2:[address] [facility] Anion Gap 9 5 - 15 mMol/L 10/01/2024 2:[address] [facility] Calcium 8.1(L) 8.5 - 10.5 mg/dL 10/01/2024 2:[address] [facility] Est Glomerular Filtration Rate - Male 127 mL/min/1. 73 m?? 10/01/2024 2:[address] [facility] Comment: This patient's estimated GFR [...] AM EST Hayley Torres MD CHEMISTRY ORDERABLES [facility] [place] [address] * (ABNORMAL) CBC (with Diff) (10/01/2024 2:02 AM EST) White Blood Cell 10.15(H) 4.00 - 9.50 x10(3)/mc L 10/01/2024 2:[address] [facility] Red Blood Cell 3.14(L) 4.58 - 5.54 x10(6)/mc L 10/01/2024 2:[address] [facility] Hemoglobin 9.1(L) 13.7 - 16.5 g/dL 10/01/2024 2:[address] [facility] Hematocrit 26.9(L) 40.5 - 48.5 % 10/01/2024 2:[address] [facility] Mean Cell Volume 85.7 82.9 - 93.1 fL 10/01/2024 2:[address] [facility] Mean Cell Hemoglobin 29.0 27.5 - 32.1 pg 10/01/2024 2:[address] [facility] Mean Cell Hemoglobin Concentration 33.8 32.0 - 35.7 g/dL 10/01/2024 2:[address] [facility] Platelet 444(H) 145 - 357 x10(3)/mc L 10/01/2024 2:[address] [facility] Mean Platelet Volume 8.9 7.6 - 12.9 fL 10/01/2024 2:[address] [facility] RDW Standard Deviation 41.2 36.0 - 45.0 fL 10/01/2024 2:[address] [facility] RDW coefficient of variation 13.2 11.4 - 13.8 % 10/01/2024 2:[address] [facility] NRBC% auto 0.0 % 10/01/2024 2:[address] [facility] NRBC Absolute <0.01 <0.01 x10(3)/mc L 10/01/2024 2:[address] [facility] Neutrophil % 59.5 % 10/01/2024 2:[address] [facility] Comment:This is an appended report. These results have been appended to a previously preliminary verified report. Neutrophil Absolute (ANC) - Automated 6.05 1.70 - 6.10 x10(3)/mc L 10/01/2024 2:[address] [facility] Comment:This is an appended report. These results have been appended to a previously preliminary verified report. Lymph % 22.3 % 10/01/2024 2:[address] [facility] Comment:This is an appended report. These results have been appended to a previously preliminary verified report. Lymph Absolute 2.26 0.90 - 3.20 x10(3)/mc L 10/01/2024 2:[address] [facility] Comment:This is an appended report. These results have been appended to a previously preliminary verified report. Monocyte % 7.4 % 10/01/2024 2:[address] [facility] Comment:This is an appended report. These results have been appended to a previously preliminary verified report. Monocyte Absolute 0.75 0.30 - 0.90 x10(3)/mc L 10/01/2024 2:[address] [facility] Comment:This is an appended report. These results have been appended to a previously preliminary verified report. Eos % 1.8 % 10/01/2024 2:55 AM EST [facility] Comment:This is an appended report. These results have been appended to a previously preliminary verified report. Eos Absolute 0.18 0.00 - 0.40 x10(3)/mc L 10/01/2024 2:55 AM EST [facility] Comment:This is an appended report. These results have been appended to a previously preliminary verified report. Basophil % 0.6 % 10/01/2024 2:55 AM EST [facility] Comment:This is an appended report. These results have been appended to a previously preliminary verified report. Baso Absolute 0.06 0.00 - 0.10 x10(3)/mc L 10/01/2024 2:[address] [facility] Comment:This is an appended report. These results have been appended to a previously preliminary verified report. Immature Gran % 8.4 % 2:55 AM EST [facility] Comment:This is an appended report. These results have been appended to a previously preliminary verified report. Immature Gran Absolute 0.85(H) 0.00 - 0.04 x10(3)/mc L 10/01/2024 2:[address] [facility] Comment:This is an appended report. These results have been appended to a previously preliminary verified report. Blood VENOUS BLOOD SPECIMEN / Unknown Venipuncture / Unknown 10/01/2024 2:02 AM EST 10/01/2024 2:10 AM EST Hayley Torres MD HEMATOLOGY ORDERABLE S [facility] [place] [address] * POC, GLUCOSE (10/01/2024 12:32 AM EST) Glucometer, POC 179 65 - 199 mg/dL 10/01/2024 12:[address] [facility] Comment:Supplemental ranges: <140 mg/dL before meals <180 mg/dL all other times of the day. Blood CAPILLARY BLOOD / Unknown 10/01/2024 12:32 AM EST 10/01/2024 12:32 AM EST Hayley Torres MD POINT OF CARE TEST O RDTYESHA Performing Organization Address City/[facility]/ZIP Co de Phone Number [facility] [place] [address] * POC, GLUCOSE (09/30/2024 7:37 PM EST) Glucometer, POC 140 65 - 199 mg/dL 09/30/2024 7:38 PM EST [facility] Comment:Supplemental ranges: <140 mg/dL before meals <180 mg/dL all other times of the day. Blood CAPILLARY BLOOD / Unknown 09/30/2024 7:37 PM EST 09/30/2024 7:38 PM EST Hayley Torres MD POINT OF CARE TEST O GILDA Performing Organization Address [facility] Co de Phone Number [facility] [place] [address] * POC, GLUCOSE (09/30/2024 4:29 PM EST) Glucometer, POC 126 65 - 199 mg/dL 09/30/2024 4:30 PM EST [facility] Comment:Supplemental ranges: <140 mg/dL before meals <180 mg/dL all other times of the day. Blood CAPILLARY BLOOD / Unknown 09/30/2024 4:29 PM EST 09/30/2024 4:30 PM EST Hayley Torres MD POINT OF CARE TEST O RDTYESHA Performing Organization Address City/[facility]/ZIP Co de Phone Number [facility] [place] [address] * POC, GLUCOSE (09/30/2024 12:16 PM EST) Glucometer, POC 107 65 - 199 mg/dL 09/30/2024 12:16 PM EST [facility] Comment:Supplemental ranges: <140 mg/dL before meals <180 mg/dL all other times of the day. Blood CAPILLARY BLOOD / Unknown 09/30/2024 12:16 PM EST 09/30/2024 12:16 PM EST Hayley Torres MD POINT OF CARE TEST O GILDA Performing Organization Address City/[facility] Co de Phone Number [facility] [place] [address] * POC, GLUCOSE (09/30/2024 7:58 AM EST) Glucometer, POC 92 65 - 199 mg/dL 09/30/2024 7:58 AM EST [facility] Comment:Supplemental ranges: <140 mg/dL before meals <180 mg/dL all other times of the day. Blood CAPILLARY BLOOD / Unknown 09/30/2024 7:58 AM EST 09/30/2024 7:58 AM EST Hayley Torres MD POINT OF CARE TEST O GILDA Performing Organization Address [facility] Co de Phone Number [facility] [place] [address] * Potassium (09/30/2024 6:27 AM EST) Potassium 3.9 3.5 - 5.0 mMol/L 09/30/2024 7:10 AM EST [facility] Blood VENOUS BLOOD SPECIMEN / Unknown Venipuncture / Unknown 09/30/2024 6:27 AM EST 09/30/2024 6:35 AM EST Hayley Torres MD CHEMISTRY ORDERABLES Performing Organization Address City/[facility] Co de Phone Number [facility] [place] [address] * Vancomycin, trough (09/30/2024 6:27 AM EST) Vancomycin, Trough 14.1 10.0 - 20.0 mg/L 09/30/2024 7:10 AM EST [facility] Comment: Varies according to infection source. Blood VENOUS BLOOD SPECIMEN / Unknown Venipuncture / Unknown 09/30/2024 6:27 AM EST 09/30/2024 6:35 AM EST Hayley Torres MD CHEMISTRY ORDERABLES Performing Organization Address City/[facility] Co de Phone Number [facility] [place] [address] * POC, GLUCOSE (09/30/2024 3:51 AM EST) [facility] Glucometer, POC 134 65 - 199 mg/dL 09/30/2024 3:51 AM EST [facility] Comment:Supplemental ranges: <140 mg/dL before meals <180 mg/dL all other times of the day. Blood CAPILLARY BLOOD / Unknown 09/30/2024 3:51 AM EST 09/30/2024 3:51 AM EST Hayley Torres MD POINT OF CARE TEST O RDERABLES Performing Organization Address [facility] Co de Phone Number [facility] [place] [address] * Magnesium (09/29/2024 11:52 PM EST) [facility] Magnesium 0.85 0.69 - 1.07 mMol/L 09/30/2024 12:25 AM EST [facility] Blood VENOUS BLOOD SPECIMEN / Unknown Venipuncture / Unknown 09/29/2024 11:52 PM EST 09/29/2024 11:58 PM EST Hayley Torres MD CHEMISTRY ORDERABLES Performing Organization Address City/[facility] Co de Phone Number [facility] [place] [address] * (ABNORMAL) Basic Metabolic Panel (09/29/2024 11:52 PM EST) [facility] Glucose 133 65 - 199 mg/dL 09/30/2024 12:[address] [facility] Comment:Glucose Concentratio n >=200 mg/dL plus symptoms is consistent with Diabetes Mellitus. Blood Urea Nitrogen 9(L) 10 - 20 mg/dL 09/30/2024 12:[address] [facility] Creatinine 0.48(L) 0.80 - 1.50 mg/dL 09/30/2024 12:[address] [facility] Sodium 138 135 - 145 mMol/L 09/30/2024 12:[address] [facility] Potassium 3.4(L) 3.5 - 5.0 mMol/L 09/30/2024 12:[address] [facility] Chloride 103 98 - 107 mMol/L 09/30/2024 12:[address] [facility] Carbon Dioxide 24 22 - 31 mMol/L 09/30/2024 12:[address] [facility] Anion Gap 11 5 - 15 mMol/L 09/30/2024 12:[address] [facility] Calcium 8.1(L) 8.5 - 10.5 mg/dL 09/30/2024 12:[address] [facility] Est Glomerular Filtration Rate - Male 126 mL/min/1. 73 m?? 09/30/2024 12:[address] [facility] Comment: This patient's estimated GFR [...] PM EST Hayley Torres MD CHEMISTRY ORDERABLES [facility] [place] [address] * (ABNORMAL) CBC (with Diff) (09/29/2024 11:52 PM EST) White Blood Cell 9.54(H) 4.00 - 9.50 x10(3)/mc L 09/30/2024 12:[address] [facility] Red Blood Cell 3.04(L) 4.58 - 5.54 x10(6)/mc L 09/30/2024 12:[address] [facility] Hemoglobin 8.7(L) 13.7 - 16.5 g/dL 09/30/2024 12:[address] [facility] Hematocrit 25.8(L) 40.5 - 48.5 % 09/30/2024 12:[address] [facility] Mean Cell Volume 84.9 82.9 - 93.1 fL 09/30/2024 12:[address] [facility] Mean Cell Hemoglobin 28.6 27.5 - 32.1 pg 09/30/2024 12:[address] [facility] Mean Cell Hemoglobin Concentration 33.7 32.0 - 35.7 g/dL 09/30/2024 12:[address] [facility] Platelet 411(H) 145 - 357 x10(3)/mc L 09/30/2024 12:[address] [facility] Mean Platelet Volume 8.8 7.6 - 12.9 fL 09/30/2024 12:[address] [facility] RDW Standard Deviation 41.4 36.0 - 45.0 fL 09/30/2024 12:[address] [facility] RDW coefficient of variation 13.4 11.4 - 13.8 % 09/30/2024 12:[address] [facility] NRBC% auto 0.0 % 09/30/2024 12:[address] [facility] NRBC Absolute <0.01 <0.01 x10(3)/mc L 09/30/2024 12:[address] [facility] Neutrophil % 64.5 % 09/30/2024 12:[address] [facility] Neutrophil Absolute (ANC) - Automated 6.16(H) 1.70 - 6.10 x10(3)/mc L 09/30/2024 12:[address] [facility] Lymph % 23.1 % 09/30/2024 12:[address] [facility] Lymph Absolute 2.20 0.90 - 3.20 x10(3)/mc L 09/30/2024 12:[address] [facility] Monocyte % 8.0 % 09/30/2024 12:[address] [facility] Monocyte Absolute 0.76 0.30 - 0.90 x10(3)/mc L 09/30/2024 12:[address] [facility] Eos % 1.5 % 09/30/2024 12:[address] [facility] Eos Absolute 0.14 0.00 - 0.40 x10(3)/mc L 09/30/2024 12:[address] [facility] Basophil % 0.3 % 09/30/2024 12:[address] [facility] Baso Absolute <0.04 0.00 - 0.10 x10(3)/mc L 09/30/2024 12:[address] [facility] Immature Gran % 2.6 % 12:[address] [facility] Immature Gran Absolute 0.25(H) 0.00 - 0.04 x10(3)/mc L 09/30/2024 12:[address] [facility] Blood VENOUS BLOOD SPECIMEN / Unknown Venipuncture / Unknown 09/29/2024 11:52 PM EST 09/29/2024 11:58 PM EST Hayley Torres MD HEMATOLOGY ORDERABLE S Performing Organization Address [facility] Co de Phone Number [facility] [place] [address] * POC, GLUCOSE (09/29/2024 11:51 PM EST) Glucometer, POC 134 65 - 199 mg/dL 09/29/2024 11:51 PM EST [facility] Comment:Supplemental ranges: <140 mg/dL before meals <180 mg/dL all other times of the day. Blood CAPILLARY BLOOD / Unknown 09/29/2024 11:51 PM EST 09/29/2024 11:51 PM EST Hayley Torres MD POINT OF CARE TEST O RDERABLES Performing Organization Address [facility] Co de Phone Number [facility] [place] [address] * Blood culture (09/29/2024 9:24 PM EST) Blood Culture No growth at 120 hours 10/04/2024 11:01 PM EST [facility] Blood VENOUS BLOOD SPECIMEN / Unknown Venipuncture / Unknown 09/29/2024 9:24 PM EST 09/29/2024 9:34 PM EST Hayley Torres MD MICROBIOLOGY - BLOOD ORDERABLES Performing Organization Address City/[facility]/ZIP Co de Phone Number [facility] [place] [address] * Blood culture (09/29/2024 9:24 PM EST) Blood Culture No growth at 120 hours 10/04/2024 11:01 PM EST [facility] Blood VENOUS BLOOD SPECIMEN / Unknown Venipuncture / Unknown 09/29/2024 9:24 PM EST 09/29/2024 9:34 PM EST Marko Dickson MD MICROBIOLOGY - BLOOD ORDERABLES [facility] [place] [address] * (ABNORMAL) POC, GLUCOSE (09/29/2024 7:35 PM EST) Glucometer, POC 202(H) 65 - 199 mg/dL 09/29/2024 7:36 PM EST [facility] Comment:Supplemental ranges: <140 mg/dL before meals <180 mg/dL all other times of the day. Blood CAPILLARY BLOOD / Unknown 09/29/2024 7:35 PM EST 09/29/2024 7:36 PM EST Hayley Torres MD POINT OF CARE TEST O GILDA Performing Organization Address [facility] de Phone Number [facility] [place] [address] * POC, GLUCOSE (09/29/2024 6:48 PM EST) Glucometer, POC 161 65 - 199 mg/dL 09/29/2024 6:48 PM EST [facility] Comment:Supplemental ranges: <140 mg/dL before meals <180 mg/dL all other times of the day. Blood CAPILLARY BLOOD / Unknown 09/29/2024 6:48 PM EST 09/29/2024 6:49 PM EST Hayley Torres MD POINT OF CARE TEST O GILDA Performing Organization Address City/[facility] Co de Phone Number [facility] [place] [address] * POC, GLUCOSE (09/29/2024 4:06 PM EST) Glucometer, POC 122 65 - 199 mg/dL 09/29/2024 4:06 PM EST [facility] Comment:Supplemental ranges: <140 mg/dL before meals <180 mg/dL all other times of the day. Blood CAPILLARY BLOOD / Unknown 09/29/2024 4:06 PM EST 09/29/2024 4:06 PM EST Hayley Torres MD POINT OF CARE TEST O GILDA Performing Organization Address [facility] Co de Phone Number [facility] [place] [address] * POC, GLUCOSE (09/29/2024 11:49 AM EST) Glucometer, POC 135 65 - 199 mg/dL 09/29/2024 11:49 AM EST [facility] Comment:Supplemental ranges: <140 mg/dL before meals <180 mg/dL all other times of the day. Blood CAPILLARY BLOOD / Unknown 09/29/2024 11:49 AM EST 09/29/2024 11:50 AM EST Hayley Torres MD POINT OF CARE TEST O GILDA Performing Organization Address [facility] de Phone Number [facility] [place] [address] * (ABNORMAL) POC, GLUCOSE (09/29/2024 7:53 AM EST) Glucometer, POC 202(H) 65 - 199 mg/dL 09/29/2024 7:53 AM EST [facility] Comment:Supplemental ranges: <140 mg/dL before meals <180 mg/dL all other times of the day. Blood CAPILLARY BLOOD / Unknown 09/29/2024 7:53 AM EST 09/29/2024 7:53 AM EST Hayley Torres MD POINT OF CARE TEST O GILDA Performing Organization Address [facility] Co de Phone Number [facility] [place] [address] * POC, GLUCOSE (09/29/2024 3:45 AM EST) Glucometer, POC 184 65 - 199 mg/dL 09/29/2024 3:46 AM EST [facility] Comment:Supplemental ranges: <140 mg/dL before meals <180 mg/dL all other times of the day. Blood CAPILLARY BLOOD / Unknown 09/29/2024 3:45 AM EST 09/29/2024 3:46 AM EST Hayley Torres MD POINT OF CARE TEST O RDERABLES Performing Organization Address City/[facility]/ZIP Co de Phone Number [facility] [place] [address] * (ABNORMAL) Hemoglobin A1c (09/28/2024 11:51 PM EST) Hemoglobin A1c 9.7(H) 4.3 - 5.6 % 09/29/2024 9:54 AM EST [facility] Comment: Per ADA guidelines, without clear [...] red blood cell turnover may not be sales representative graphic art of glycemic control. Reference Interval: 4.3 - 5.6% 5.7 - 6.4%: Consistent with prediabetes >=6.5%: Consistent with diagnosis of diabetes mellitus Estimated Average Glucose 232 mg/dL 09/29/2024 9:54 AM EST [facility] Blood VENOUS BLOOD SPECIMEN / Unknown Venipuncture / Unknown 09/28/2024 11:51 PM EST 09/28/2024 11:56 PM EST Hayley Torres MD CHEMISTRY ORDERABLES Performing Organization Address City/[facility]/ZIP Co de Phone Number [facility] [place] [address] * Magnesium (09/28/2024 11:51 PM EST) Magnesium 0.72 0.69 - 1.07 mMol/L 09/29/2024 12:27 AM EST [facility] Blood VENOUS BLOOD SPECIMEN / Unknown Venipuncture / Unknown 09/28/2024 11:51 PM EST 09/28/2024 11:57 PM EST Hayley Torres MD CHEMISTRY ORDERABLES [facility] [place] [address] * (ABNORMAL) Basic Metabolic Panel (09/28/2024 11:51 PM EST) Glucose 204(H) 65 - 199 mg/dL 09/29/2024 12:[address] [facility] Comment:Glucose Concentratio n >=200 mg/dL plus symptoms is consistent with Diabetes Mellitus. Blood Urea Nitrogen 6(L) 10 - 20 mg/dL 09/29/2024 12:[address] [facility] Creatinine 0.52(L) 0.80 - 1.50 mg/dL 09/29/2024 12:[address] [facility] Sodium 137 135 - 145 mMol/L 09/29/2024 12:[address] [facility] Potassium 3.2(L) 3.5 - 5.0 mMol/L 09/29/2024 12:[address] [facility] Chloride 105 98 - 107 mMol/L 09/29/2024 12:[address] [facility] Carbon Dioxide 21(L) 22 - 31 mMol/L 09/29/2024 12:[address] [facility] Anion Gap 11 5 - 15 mMol/L 09/29/2024 12:[address] [facility] Calcium 6.7(LLL) 8.5 - 10.5 mg/dL 09/29/2024 12:[address] [facility] Est Glomerular Filtration Rate - Male 123 mL/min/1. 73 m?? 09/29/2024 12:[address] [facility] Comment: This patient's estimated GFR [...] PM EST Hayley Torres MD CHEMISTRY ORDERABLES [facility] [place] [address] * (ABNORMAL) CBC (with Diff) (09/28/2024 11:51 PM EST) White Blood Cell 12.76(H) 4.00 - 9.50 x10(3)/mc L 09/29/2024 12:[address] [facility] Red Blood Cell 2.90(L) 4.58 - 5.54 x10(6)/mc L 09/29/2024 12:[address] [facility] Hemoglobin 8.5(L) 13.7 - 16.5 g/dL 09/29/2024 12:[address] [facility] Hematocrit 24.7(L) 40.5 - 48.5 % 09/29/2024 12:[address] [facility] Mean Cell Volume 85.2 82.9 - 93.1 fL 09/29/2024 12:[address] [facility] Mean Cell Hemoglobin 29.3 27.5 - 32.1 pg 09/29/2024 12:[address] [facility] Mean Cell Hemoglobin Concentration 34.4 32.0 - 35.7 g/dL 09/29/2024 12:[address] [facility] Platelet 331 145 - 357 x10(3)/mc L 09/29/2024 12:[address] [facility] Mean Platelet Volume 9.2 7.6 - 12.9 fL 09/29/2024 12:[address] [facility] RDW Standard Deviation 40.4 36.0 - 45.0 fL 09/29/2024 12:[address] [facility] RDW coefficient of variation 13.1 11.4 - 13.8 % 09/29/2024 12:[address] [facility] NRBC% auto 0.0 % 09/29/2024 12:[address] [facility] NRBC Absolute <0.01 <0.01 x10(3)/mc L 09/29/2024 12:[address] [facility] Neutrophil % 86.7 % 09/29/2024 12:[address] [facility] Neutrophil Absolute (ANC) - Automated 11.06(H) 1.70 - 6.10 x10(3)/mc L 09/29/2024 12:[address] [facility] Lymph % 7.7 % 09/29/2024 12:[address] [facility] Lymph Absolute 0.98 0.90 - 3.20 x10(3)/mc L 09/29/2024 12:[address] [facility] Monocyte % 4.0 % 09/29/2024 12:[address] [facility] Monocyte Absolute 0.51 0.30 - 0.90 x10(3)/mc L 09/29/2024 12:[address] [facility] Eos % 0.0 % 09/29/2024 12:[address] [facility] Eos Absolute <0.04 0.00 - 0.40 x10(3)/mc L 09/29/2024 12:[address] [facility] Basophil % 0.2 % 09/29/2024 12:[address] [facility] Baso Absolute <0.04 0.00 - 0.10 x10(3)/mc L 09/29/2024 12:[address] [facility] Immature Gran % 1.4 % 12:[address] [facility] Immature Gran Absolute 0.18(H) 0.00 - 0.04 x10(3)/mc L 09/29/2024 12:[address] [facility] Blood VENOUS BLOOD SPECIMEN / Unknown Venipuncture / Unknown 09/28/2024 11:51 PM EST 09/28/2024 11:56 PM EST Hayley Torres MD HEMATOLOGY ORDERABLE S Performing Organization Address City/[facility]/ZIP Co de Phone Number [facility] [place] [address] * (ABNORMAL) POC, GLUCOSE (09/28/2024 11:45 PM EST) Glucometer, POC 238(H) 65 - 199 mg/dL 09/28/2024 11:45 PM EST [facility] Comment:Supplemental ranges: <140 mg/dL before meals <180 mg/dL all other times of the day. Blood CAPILLARY BLOOD / Unknown 09/28/2024 11:45 PM EST 09/28/2024 11:45 PM EST Hayley Torres MD POINT OF CARE TEST O RDERAHERNANDEZ Performing Organization Address City/[facility]/ZIP Co de Phone Number [facility] [place] [address] * (ABNORMAL) POC, GLUCOSE (09/28/2024 10:00 PM EST) Glucometer, POC 287(H) 65 - 199 mg/dL 09/28/2024 10:00 PM EST [facility] Comment:Supplemental ranges: <140 mg/dL before meals <180 mg/dL all other times of the day. Blood CAPILLARY BLOOD / Unknown 09/28/2024 10:00 PM EST 09/28/2024 10:00 PM EST Hayley Torres MD POINT OF CARE TEST O RDERAHERNANDEZ Performing Organization Address City/[facility]/ZIP Co de Phone Number [facility] [place] [address] * (ABNORMAL) POC, GLUCOSE (09/28/2024 7:51 PM EST) Glucometer, POC 243(H) 65 - 199 mg/dL 09/28/2024 7:52 PM EST [facility] Comment:Supplemental ranges: <140 mg/dL before meals <180 mg/dL all other times of the day. Blood CAPILLARY BLOOD / Unknown 09/28/2024 7:51 PM EST 09/28/2024 7:52 PM EST Hayley Torres MD POINT OF CARE TEST Stephanie VO Performing Organization Address [facility]/ZIP Co de Phone Number [facility] [place] [address] * Blood culture (09/28/2024 5:49 PM EST) Blood Culture No growth at 120 hours 10/03/2024 7:01 PM EST [facility] Blood VENOUS BLOOD SPECIMEN / Unknown Venipuncture / Unknown 09/28/2024 5:49 PM EST 09/28/2024 5:53 PM EST Marko Dickson MD MICROBIOLOGY - BLOOD ORDERABLES Performing Organization Address City/[facility]/ZIP Co de Phone Number [facility] [place] [address] * (ABNORMAL) POC, GLUCOSE (09/28/2024 4:42 PM EST) Glucometer, POC 203(H) 65 - 199 mg/dL 09/28/2024 4:42 PM EST [facility] Comment:Supplemental ranges: <140 mg/dL before meals <180 mg/dL all other times of the day. Blood CAPILLARY BLOOD / Unknown 09/28/2024 4:42 PM EST 09/28/2024 4:42 PM EST Hayley Torres MD POINT OF CARE TEST O RDERABLES [facility] [place] [address] * (ABNORMAL) Blood Gas, Arterial POC (09/28/2024 3:16 PM EST) pH, Arterial 7.42 7.35 - 7.45 09/28/2024 3:17 PM EST [facility] PCO2, Arterial 39 35 - 45 mmHg 09/28/2024 3:[address] [facility] PO2, Arterial 103 85 - 104 mmHg 09/28/2024 3:[address] [facility] Bicarbonate, Arterial 24.8 20.0 - 26.0 mmol/L 09/28/2024 3:[address] [facility] Base Excess, Arterial 0.2 -3.0 - 3.0 mmol/L 09/28/2024 3:[address] [facility] Hemoglobin, Arterial 10.9(L) 13.7 - 16.5 g/dL 09/28/2024 3:[address] [facility] Oxyhemoglobin, Arterial 97.1(H) 94.0 - 97.0 % 09/28/2024 3:[address] [facility] Carboxyhemoglobin , Arterial 0.1 % 09/28/2024 3:[address] [facility] Comment: Nonsmokers: 0.5-1.5% COHB ?? Smokers: Variable ??but usually less than 10% ?? Toxic: 20-30% COHB ?? Lethal: Greater than 60% COHB Methemoglobin, Arterial 0.2 <=1.5 % 09/28/2024 3:[address] [facility] Sodium, Arterial 131(L) 135 - 145 mmol/L 09/28/2024 3:[address] [facility] Potassium, Arterial 3.8 3.5 - 5.0 mmol/L 09/28/2024 3:[address] [facility] Chloride, Arterial 99 98 - 107 mmol/L 09/28/2024 3:17 PM EST [facility] Lactate, Arterial 1.1 0.5 - 2.2 mmol/L 09/28/2024 3:17 PM EST [facility] IONIZED CALCIUM, ARTERIAL 1.08(L) 1.15 - 1.33 mmol/L 09/28/2024 3:17 PM EST [facility] Glucose, Arterial 163 65 - 199 mg/dL 09/28/2024 3:17 PM EST [facility] Comment:Glucose Concentratio n >=200 mg/dL plus symptoms is consistent with Diabetes Mellitus. Blood ARTERIAL BLOOD / Unknown 09/28/2024 3:16 PM EST 09/28/2024 3:17 PM EST Hayley Torres MD POINT OF CARE TEST O RDERABLES [facility] [place] [address] * Surgical Pathology (09/28/2024 2:10 PM EST) Case Report Surgical Pathology Report ? Case: [id number] ? Authorizing Provider: ??Hayley Torres MD ? Collected: ? 09/28/2024 1410 ? Ordering Location: ? Main Operating Room [facility] ?? Received: ?09/28/2024 1644 ? [facility] ? [facility] ? Pathologist: ? Aziza Packer MD ? Specimens: ?? A) - Leg, Left, Left femoral proximal graft ? B) - Leg, Left, Left distal BK pop graft ? 10/02/2024 8:[address] [facility] Final Diagnosis A. Graft, left leg, femoral proximal, excision: - Gross surgical pathology examination. B. Graft, left leg, distal BK pop, excision: - Gross surgical pathology examination. 10/02/2024 8:[address] [facility] Clinical Information A. Leg, Left, Left femoral proximal graft Left femoral proximal graft B. Leg, Left, Left distal BK pop graft Left distal BK pop graft 10/02/2024 8:[address] [facility] Gross Description A. Leg, Left, Left [...] diagnosis only sns 10/02/2024 8:17 AM EST [facility] Result Note Routine 10/02/2024 8:17 AM EST [facility] Head Up Operator Helper STRUCTURE OF LEFT LOWER LIMB / Unknown 09/28/2024 2:10 PM EST 09/28/2024 4:44 PM EST Comment:Left femoral proxima l graft Biomedical device (physical object) STRUCTURE OF LEFT LOWER LIMB / Unknown 09/28/2024 2:17 PM EST 09/28/2024 4:44 PM EST Comment:Left distal BK pop g raft Hayley Torres MD PATHOLOGY/CYTOLOGY O RDERABLES [facility] [place] [address] * Potassium (09/28/2024 10:45 AM EST) Potassium 4.6 3.5 - 5.0 mMol/L 09/28/2024 12:26 PM EST [facility] Blood VENOUS BLOOD SPECIMEN / Unknown Venipuncture / Unknown 09/28/2024 10:45 AM EST 09/28/2024 10:53 AM EST Marko Dickson MD CHEMISTRY ORDERABLES [facility] [place] [address] * POC, GLUCOSE (09/28/2024 7:57 AM EST) Pathologist [facility] Glucometer, POC 192 65 - 199 mg/dL 09/28/2024 7:57 AM EST [facility] Comment:Supplemental ranges: <140 mg/dL before meals <180 mg/dL all other times of the day. Blood CAPILLARY BLOOD / Unknown 09/28/2024 7:57 AM EST 09/28/2024 7:57 AM EST Marko Dickson MD POINT OF CARE TEST O RDERABLES [facility] [place] [address] * ELEN, legs, multiple levels (09/28/2024 7:44 AM EST) [facility] VB Text Report Department: Vascular Surgery Lab Patient: [id number] (GEOVANNA DIXON) CPT: 97323 Referring Physician: HERMILA SNIDER ?? Phone: Indications: [...] AM EST Narrative 09/28/2024 9:15 AM EST [address] [place] [address] ? Echocardiogram Report Name: GEOVANNA DIXON JR ?Study Date: 09/28/2024 06:56 AMBP: 132/75 mmHg ? Patient Location: ^IC08^A : 1975 ? Height: 179 cm ? Account: [id number] Age: 49 yrs ? Weight: 108 kg Gender: Male ?BSA: 2.3 m2 Ordering Physician: Marko Dickson MD Referring Physician: PATRIC GILES Performed By: Faiza Cole Reason For Study: Vascular graft infection, initial encounter; MRSA bacteremia Interpreting Fellow: Jame Lares. Exam Location: [facility]. Interpretation Summary -Limited study performed for bacteremia [...] 05/29/2024, no significant changes. Procedure Limited - 72830. Doppler - 88152. Color Doppler - 30252. Suboptimal quality. This study is limited because [...] Note David Lomeli MD - 09/28/2024 [address] [place] [address] Echocardiogram Report Name: GEOVANNA DIXON, JR Study Date: 406:56 AMBP: 132/75 mmHg Patient Location:^IC08^A : 1975 Height: 179 cm Account: [id number] Age: 49 yrs Weight: 108 kg Gender: Male BSA: 2.3 m2 Ordering Physician: Marko Dickson MD Referring Physician: PATRIC GILES Performed By: Faiza Cole Reason For Study: Vascular graft infection, initial encounter; MRSAbacteremia Interpreting Fellow: Jame Lares. Exam Location: [facility]. Interpretation Summary -Limited study performed for bacteremia [...] 05/29/2024, no significant changes. Procedure Limited - 82091. Doppler - 39718. Color Doppler - 96624. Suboptimalquality. This study is limited because of [...] - 20.0 mg/L 09/28/2024 7:21 AM EST [facility] Comment: Varies according to infection source. Blood VENOUS BLOOD SPECIMEN / Unknown Venipuncture / Unknown 09/28/2024 6:44 AM EST 09/28/2024 6:49 AM EST Marko Dickson MD CHEMISTRY ORDERABLES Performing Organization Address City/[facility]/ZIP Co de Phone Number [facility] [place] [address] * (ABNORMAL) Potassium (09/28/2024 4:55 AM EST) [facility] Potassium 2.9(LLL) 3.5 - 5.0 mMol/L 09/28/2024 5:31 AM EST [facility] Blood VENOUS BLOOD SPECIMEN / Unknown Venipuncture / Unknown 09/28/2024 4:55 AM EST 09/28/2024 5:01 AM EST Marko Dickson MD CHEMISTRY ORDERABLES Performing Organization Address [facility] Co de Phone Number [facility] [place] [address] * (ABNORMAL) POC, GLUCOSE (09/28/2024 3:54 AM EST) [facility] Glucometer, POC 229(H) 65 - 199 mg/dL 09/28/2024 3:54 AM EST [facility] Comment:Supplemental ranges: <140 mg/dL before meals <180 mg/dL all other times of the day. Blood CAPILLARY BLOOD / Unknown 09/28/2024 3:54 AM EST 09/28/2024 3:54 AM EST Marko Dickson MD POINT OF CARE TEST O RDERABLES Performing Organization Address City/[facility]/ZIP Co de Phone Number [facility] [place] [address] * Magnesium (09/27/2024 11:58 PM EST) [facility] Magnesium 0.77 0.69 - 1.07 mMol/L 09/28/2024 12:[address] [facility] Blood VENOUS BLOOD SPECIMEN / Unknown Venipuncture / Unknown 09/27/2024 11:58 PM EST 09/28/2024 12:10 AM EST Hayley Torres MD CHEMISTRY ORDERABLES [facility] [place] [address] * (ABNORMAL) Basic Metabolic Panel (09/27/2024 11:58 PM EST) Glucose 246(H) 65 - 199 mg/dL 09/28/2024 12:[address] [facility] Comment:Glucose Concentratio n >=200 mg/dL plus symptoms is consistent with Diabetes Mellitus. Blood Urea Nitrogen 5(L) 10 - 20 mg/dL 09/28/2024 12:[address] [facility] Creatinine 0.48(L) 0.80 - 1.50 mg/dL 09/28/2024 12:[address] [facility] Sodium 131(L) 135 - 145 mMol/L 09/28/2024 12:[address] [facility] Potassium 3.2(L) 3.5 - 5.0 mMol/L 09/28/2024 12:[address] [facility] Chloride 95(L) 98 - 107 mMol/L 09/28/2024 12:[address] [facility] Carbon Dioxide 23 22 - 31 mMol/L 09/28/2024 12:[address] [facility] Anion Gap 13 5 - 15 mMol/L 09/28/2024 12:[address] [facility] Calcium 8.1(L) 8.5 - 10.5 mg/dL 09/28/2024 12:[address] [facility] Est Glomerular Filtration Rate - Male 126 mL/min/1. 73 m?? 09/28/2024 12:[address] [facility] Comment: This patient's estimated GFR [...] AM EST Hayley Torres MD CHEMISTRY ORDERABLES [facility] [place] [address] * (ABNORMAL) CBC (with Diff) (09/27/2024 11:58 PM EST) White Blood Cell 17.15(H) 4.00 - 9.50 x10(3)/mc L 09/28/2024 12:[address] [facility] Red Blood Cell 3.64(L) 4.58 - 5.54 x10(6)/mc L 09/28/2024 12:[address] [facility] Hemoglobin 10.4(L) 13.7 - 16.5 g/dL 09/28/2024 12:[address] [facility] Hematocrit 30.5(L) 40.5 - 48.5 % 09/28/2024 12:[address] [facility] Mean Cell Volume 83.8 82.9 - 93.1 fL 09/28/2024 12:[address] [facility] Mean Cell Hemoglobin 28.6 27.5 - 32.1 pg 09/28/2024 12:[address] [facility] Mean Cell Hemoglobin Concentration 34.1 32.0 - 35.7 g/dL 09/28/2024 12:[address] [facility] Platelet 316 145 - 357 x10(3)/mc L 09/28/2024 12:[address] [facility] Mean Platelet Volume 9.4 7.6 - 12.9 fL 09/28/2024 12:[address] [facility] RDW Standard Deviation 39.4 36.0 - 45.0 fL 09/28/2024 12:[address] [facility] RDW coefficient of variation 12.8 11.4 - 13.8 % 09/28/2024 12:[address] [facility] NRBC% auto 0.0 % 09/28/2024 12:[address] [facility] NRBC Absolute <0.01 <0.01 x10(3)/mc L 09/28/2024 12:[address] [facility] Neutrophil % 81.2 % 09/28/2024 12:[address] [facility] Neutrophil Absolute (ANC) - Automated 13.93(H) 1.70 - 6.10 x10(3)/mc L 09/28/2024 12:[address] [facility] Lymph % 10.5 % 09/28/2024 12:[address] [facility] Lymph Absolute 1.80 0.90 - 3.20 x10(3)/mc L 09/28/2024 12:[address] [facility] Monocyte % 5.7 % 09/28/2024 12:[address] [facility] Monocyte Absolute 0.98(H) 0.30 - 0.90 x10(3)/mc L 09/28/2024 12:[address] [facility] Eos % 0.7 % 09/28/2024 12:[address] [facility] Eos Absolute 0.12 0.00 - 0.40 x10(3)/mc L 09/28/2024 12:[address] [facility] Basophil % 0.5 % 09/28/2024 12:[address] [facility] Baso Absolute 0.08 0.00 - 0.10 x10(3)/mc L 09/28/2024 12:14 AM EST [facility] Immature Gran % 1.4 % 12:[address] [facility] Immature Gran Absolute 0.24(H) 0.00 - 0.04 x10(3)/mc L 09/28/2024 12:[address] [facility] Blood VENOUS BLOOD SPECIMEN / Unknown Venipuncture / Unknown 09/27/2024 11:58 PM EST 09/28/2024 12:10 AM EST Hayley Torres MD HEMATOLOGY ORDERABLE S [facility] [place] [address] * (ABNORMAL) POC, GLUCOSE (09/27/2024 11:46 PM EST) Glucometer, POC 205(H) 65 - 199 mg/dL 09/27/2024 11:[address] [facility] Comment:Supplemental ranges: <140 mg/dL before meals <180 mg/dL all other times of the day. Blood CAPILLARY BLOOD / Unknown 09/27/2024 11:46 PM EST 09/27/2024 11:46 PM EST Marko Dickson MD POINT OF CARE TEST O RDERABLES [facility] [place] [address] * (ABNORMAL) Blood culture (09/27/2024 9:33 PM EST) Blood Culture Methicillin Resistant Staphylococcus aureus(Critical) 10/02/2024 8:[address] [facility] Comment:Susceptibilities pre viously reported. Gram Stain Aerobic Bottle: Gram positive cocci in clusters(Critical ) 10/02/2024 8:[address] [facility] Blood VENOUS BLOOD SPECIMEN / Unknown Venipuncture / Unknown 09/27/2024 9:33 PM EST 09/27/2024 9:38 PM EST Marko Dickson MD MICROBIOLOGY - BLOOD ORDERABLES [facility] [place] [address] * POC, GLUCOSE (09/27/2024 7:51 PM EST) [facility] Glucometer, POC 142 65 - 199 mg/dL 09/27/2024 7:51 PM EST [facility] Comment:Supplemental ranges: <140 mg/dL before meals <180 mg/dL all other times of the day. Blood CAPILLARY BLOOD / Unknown 09/27/2024 7:51 PM EST 09/27/2024 7:51 PM EST Marko Dickson MD POINT OF CARE TEST O RDERABLES Performing Organization Address City/[facility]/ZIP Co de Phone Number [facility] [place] [address] * (ABNORMAL) Hemogram (09/27/2024 5:55 PM EST) [facility] White Blood Cell 19.38(H) 4.00 - 9.50 x10(3)/mc L 09/27/2024 6:[address] [facility] Red Blood Cell 3.76(L) 4.58 - 5.54 x10(6)/mc L 09/27/2024 6:16 PM EST [facility] Hemoglobin 11.0(L) 13.7 - 16.5 g/dL 09/27/2024 6:16 PM EST [facility] Hematocrit 31.6(L) 40.5 - 48.5 % 09/27/2024 6:16 PM EST [facility] Mean Cell Volume 84.0 82.9 - 93.1 fL 09/27/2024 6:16 PM EST [facility] Mean Cell Hemoglobin 29.3 27.5 - 32.1 pg 09/27/2024 6:[address] [facility] Mean Cell Hemoglobin Concentration 34.8 32.0 - 35.7 g/dL 09/27/2024 6:[address] [facility] Platelet 322 145 - 357 x10(3)/mc L 09/27/2024 6:[address] [facility] Mean Platelet Volume 9.4 7.6 - 12.9 fL 09/27/2024 6:[address] [facility] RDW Standard Deviation 39.4 36.0 - 45.0 fL 09/27/2024 6:[address] [facility] RDW coefficient of variation 13.0 11.4 - 13.8 % 09/27/2024 6:[address] [facility] NRBC% auto 0.0 % 09/27/2024 6:[address] [facility] NRBC Absolute <0.01 <0.01 x10(3)/mc L 09/27/2024 6:[address] [facility] Blood VENOUS BLOOD SPECIMEN / Unknown Venipuncture / Unknown 09/27/2024 5:55 PM EST 09/27/2024 6:05 PM EST Marko Dickson MD HEMATOLOGY ORDERABLE S Performing Organization Address City/State/[facility] Co de Phone Number [facility] [place] [address] * POC, GLUCOSE (09/27/2024 5:48 PM EST) [facility] Signature Glucometer, POC 171 65 - 199 mg/dL 09/27/2024 5:[address] [facility] Comment:Supplemental ranges: <140 mg/dL before meals <180 mg/dL all other times of the day. 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 Hayley Torres MD MICROBIOLOGY - GENER AL ORDERABLES [facility] [place] [address] * (ABNORMAL) Tissue Culture, Aerobic Only (09/27/2024 4:54 PM EST) Tissue Culture Rare Methicillin Resistant Staphylococcus aureus(A) VITEK 2 METHOD 10/01/2024 1:18 PM EST [facility] Gram Stain Few Neutrophils seen 10/01/2024 1:18 PM EST [facility] Gram Stain No microorganisms seen 10/01/2024 1:18 PM EST [facility] Tissue STRUCTURE OF LEFT THIGH / [...] - GENER AL ORDERABLES Performing Organization Address [facility] Co de Phone Number [facility] [place] [address] * POC, GLUCOSE (09/27/2024 3:23 PM EST) Glucometer, POC 178 65 - 199 mg/dL 09/27/2024 3:23 PM EST [facility] Comment:Supplemental ranges: <140 mg/dL before meals <180 mg/dL all other times of the day. Blood CAPILLARY BLOOD / Unknown 09/27/2024 3:23 PM EST 09/27/2024 3:23 PM EST Marko Dickson MD POINT OF CARE TEST Stephanie VO Performing Organization Address [facility] de Phone Number [facility] [place] [address] * POC, GLUCOSE (09/27/2024 11:29 AM EST) Glucometer, POC 181 65 - 199 mg/dL 09/27/2024 11:29 AM EST [facility] Comment:Supplemental ranges: <140 mg/dL before meals <180 mg/dL all other times of the day. Blood CAPILLARY BLOOD / Unknown 09/27/2024 11:29 AM EST 09/27/2024 11:30 AM EST Marko Dickson MD POINT OF CARE TEST Stephanie VO Performing Organization Address [facility] Co de Phone Number [facility] [place] [address] * CT Lower Extremity w Contrast Left (09/27/2024 9:16 AM EST) WORKSTATION ID [id number] RAD Anatomical Region Laterality Modality Hip, Leg, [...] have questions please contact the health pet care associate that requested your imaging first. ? Narrative [...] who have questions please contactthe health pet care associate that requested your imaging first. Rose Wright LICENSED STAFF MFT IMG CT ORDERABL ES * POC, GLUCOSE (09/27/2024 7:51 AM EST) [facility] Glucometer, POC 194 65 - 199 mg/dL 09/27/2024 7:51 AM EST [facility] Comment:Supplemental ranges: <140 mg/dL before meals <180 mg/dL all other times of the day. Blood CAPILLARY BLOOD / Unknown 09/27/2024 7:51 AM EST 09/27/2024 7:51 AM EST Marko Dickson MD POINT OF CARE TEST O RDERABLES [facility] [place] [address] * (ABNORMAL) MRSA PCR Screen (09/27/2024 7:51 AM EST) [facility] MRSA PCR Detected(A ) 09/27/2024 11:[address] [facility] Swab BOTH ANTERIOR NARES / Unknown Non Blood Collection / Unknown 09/27/2024 7:51 AM EST 09/27/2024 8:[address] [facility] - 09/27/2024 11:56 AM EST This test was performed using the Xpert MRSA NxG test kit and is run on the [employer] GeneXpert Dx System. This test is cleared by the U.S. Food and Drug Administration for clinical use and its performance characteristics have been verified by the [facility] [employer] [facility] at [facility]. Marko Dickson MD MOLECULAR ORDERABLES [facility] [place] [address] * Potassium (09/27/2024 7:51 AM EST) Potassium 3.5 3.5 - 5.0 mMol/L 09/27/2024 9:09 AM EST [facility] Blood VENOUS BLOOD SPECIMEN / Unknown Venipuncture / Unknown 09/27/2024 7:51 AM EST 09/27/2024 8:05 AM EST Marko Dickson MD CHEMISTRY ORDERABLES Performing Organization Address City/[facility]/ZIP Co de Phone Number [facility] [place] [address] * (ABNORMAL) Potassium (09/27/2024 5:05 AM EST) Potassium 3.4(L) 3.5 - 5.0 mMol/L 09/27/2024 5:32 AM EST [facility] Blood VENOUS BLOOD SPECIMEN / Unknown Venipuncture / Unknown 09/27/2024 5:05 AM EST 09/27/2024 5:09 AM EST Marko Dickson MD CHEMISTRY ORDERABLES Performing Organization Address City/[facility]/ZIP Co de Phone Number [facility] [place] [address] * POC, GLUCOSE (09/27/2024 3:52 AM EST) Glucometer, POC 199 65 - 199 mg/dL 09/27/2024 3:52 AM EST [facility] Comment:Supplemental ranges: <140 mg/dL before meals <180 mg/dL all other times of the day. Blood CAPILLARY BLOOD / Unknown 09/27/2024 3:52 AM EST 09/27/2024 3:52 AM EST Marko Dickson MD POINT OF CARE TEST O RDTYESHA Performing Organization Address [facility] Co de Phone Number [facility] [place] [address] * (ABNORMAL) POC, GLUCOSE (09/27/2024 1:59 AM EST) Glucometer, POC 219(H) 65 - 199 mg/dL 09/27/2024 2:00 AM EST [facility] Comment:Supplemental ranges: <140 mg/dL before meals <180 mg/dL all other times of the day. Blood CAPILLARY BLOOD / Unknown 09/27/2024 1:59 AM EST 09/27/2024 2:00 AM EST Marko Dickson MD POINT OF CARE TEST O GILDA Performing Organization Address [facility] Co de Phone Number [facility] [place] [address] * (ABNORMAL) Magnesium (09/27/2024 12:01 AM EST) Magnesium 0.68(L) 0.69 - 1.07 mMol/L 09/27/2024 12:35 AM EST [facility] Blood VENOUS BLOOD SPECIMEN / Unknown Venipuncture / Unknown 09/27/2024 12:01 AM EST 09/27/2024 12:05 AM EST Hayley Torres MD CHEMISTRY ORDERABLES Performing Organization Address City/[facility]/ZIP Co de Phone Number [facility] [place] [address] * (ABNORMAL) Basic Metabolic Panel (09/27/2024 12:01 AM EST) Glucose 261(H) 65 - 199 mg/dL 09/27/2024 12:35 AM EST [facility] Comment:Glucose Concentratio n >=200 mg/dL plus symptoms is consistent with Diabetes Mellitus. Blood Urea Nitrogen 7(L) 10 - 20 mg/dL 09/27/2024 12:[address] [facility] Creatinine 0.45(L) 0.80 - 1.50 mg/dL 09/27/2024 12:[address] [facility] Sodium 128(L) 135 - 145 mMol/L 09/27/2024 12:[address] [facility] Potassium 3.3(L) 3.5 - 5.0 mMol/L 09/27/2024 12:[address] [facility] Chloride 92(L) 98 - 107 mMol/L 09/27/2024 12:[address] [facility] Carbon Dioxide 23 22 - 31 mMol/L 09/27/2024 12:[address] [facility] Anion Gap 13 5 - 15 mMol/L 09/27/2024 12:[address] [facility] Calcium 8.5 8.5 - 10.5 mg/dL 09/27/2024 12:[address] [facility] Est Glomerular Filtration Rate - Male 128 mL/min/1. 73 m?? 09/27/2024 12:[address] [facility] Comment: This patient's estimated GFR [...] AM EST Hayley Torres MD CHEMISTRY ORDERABLES [facility] [place] [address] * (ABNORMAL) CBC (with Diff) (09/27/2024 12:01 AM [facility]) White Blood Cell 23.20(H) 4.00 - 9.50 x10(3)/mc L 09/27/2024 12:[address] [facility] Red Blood Cell 4.07(L) 4.58 - 5.54 x10(6)/mc L 09/27/2024 12:[address] [facility] Hemoglobin 11.7(L) 13.7 - 16.5 g/dL 09/27/2024 12:[address] [facility] Hematocrit 33.6(L) 40.5 - 48.5 % 09/27/2024 12:[address] [facility] Mean Cell Volume 82.6(L) 82.9 - 93.1 fL 09/27/2024 12:[address] [facility] Mean Cell Hemoglobin 28.7 27.5 - 32.1 pg 09/27/2024 12:[address] [facility] Mean Cell Hemoglobin Concentration 34.8 32.0 - 35.7 g/dL 09/27/2024 12:[address] [facility] Platelet 296 145 - 357 x10(3)/mc L 09/27/2024 12:[address] [facility] Mean Platelet Volume 9.5 7.6 - 12.9 fL 09/27/2024 12:[address] [facility] RDW Standard Deviation 37.9 36.0 - 45.0 fL 09/27/2024 12:[address] [facility] RDW coefficient of variation 12.6 11.4 - 13.8 % 09/27/2024 12:[address] [facility] NRBC% auto 0.0 % 09/27/2024 12:[address] [facility] NRBC Absolute <0.01 <0.01 x10(3)/mc L 09/27/2024 12:[address] [facility] Neutrophil % 83.7 % 09/27/2024 12:[address] [facility] Neutrophil Absolute (ANC) - Automated 19.43(H) 1.70 - 6.10 x10(3)/mc L 09/27/2024 12:[address] [facility] Lymph % 6.7 % 09/27/2024 12:[address] [facility] Lymph Absolute 1.56 0.90 - 3.20 x10(3)/mc L 09/27/2024 12:[address] [facility] Monocyte % 7.8 % 09/27/2024 12:[address] [facility] Monocyte Absolute 1.80(H) 0.30 - 0.90 x10(3)/mc L 09/27/2024 12:[address] [facility] Eos % 0.2 % 09/27/2024 12:[address] [facility] Eos Absolute 0.04 0.00 - 0.40 x10(3)/mc L 09/27/2024 12:[address] [facility] Basophil % 0.5 % 09/27/2024 12:[address] [facility] Baso Absolute 0.12(H) 0.00 - 0.10 x10(3)/mc L 09/27/2024 12:[address] [facility] Immature Gran % 1.1 % 12:[address] [facility] Immature Gran Absolute 0.25(H) 0.00 - 0.04 x10(3)/mc L 09/27/2024 12:[address] [facility] Blood VENOUS BLOOD SPECIMEN / Unknown Venipuncture / Unknown 09/27/2024 12:01 AM EST 09/27/2024 12:05 AM EST Hayley Torres MD HEMATOLOGY ORDERABLE S [facility] [place] [address] * (ABNORMAL) POC, GLUCOSE (09/26/2024 11:59 PM EST) Glucometer, POC 251(H) 65 - 199 mg/dL 09/26/2024 11:59 PM EST [facility] Comment:Supplemental ranges: <140 mg/dL before meals <180 mg/dL all other times of the day. Blood CAPILLARY BLOOD / Unknown 09/26/2024 11:59 PM EST 09/26/2024 11:59 PM EST Marko Dickson MD POINT OF CARE TEST O GILDA Performing Organization Address [facility] Co de Phone Number [facility] [place] [address] * (ABNORMAL) POC, GLUCOSE (09/26/2024 7:34 PM EST) Glucometer, POC 204(H) 65 - 199 mg/dL 09/26/2024 7:34 PM EST [facility] Comment:Supplemental ranges: <140 mg/dL before meals <180 mg/dL all other times of the day. Blood CAPILLARY BLOOD / Unknown 09/26/2024 7:34 PM EST 09/26/2024 7:35 PM EST Marko Dickson MD POINT OF CARE TEST O GILDA Performing Organization Address City/[facility]/ZIP Co de Phone Number [facility] [place] [address] * (ABNORMAL) Blood culture (09/26/2024 6:45 PM EST) Blood Culture Methicillin Resistant Staphylococcus aureus(Critical) 10/01/2024 6:58 AM EST [facility] Comment: isolated. Susceptibilities previously reported. Gram Stain Aerobic Bottle: Gram positive cocci in clusters(Critical ) 10/01/2024 6:58 AM EST [facility] Blood VENOUS BLOOD SPECIMEN / Unknown Venipuncture / Unknown 09/26/2024 6:45 PM EST 09/26/2024 6:48 PM EST Marko Dickson MD MICROBIOLOGY - BLOOD ORDERABLES Performing Organization Address [facility] Co de Phone Number [facility] [place] [address] * (ABNORMAL) Sonicated Tissue/Implant Culture (09/26/2024 5:16 PM EST) Sonicated Tissue/Implan t Culture Methicillin Resistant Staphylococcus aureus(A) VITEK 2 METHOD 09/30/2024 1:49 PM EST [facility] Comment: isolated from broth culture. Susceptibilities previously reported. Vascular Graft STRUCTURE OF LEFT LOWER LIMB / Unknown Non Blood Collection / Unknown 09/26/2024 5:16 PM EST 09/26/2024 5:45 PM EST Marko Dickson MD MICROBIOLOGY - GENER AL ORDERABLES Performing Organization Address [facility] Co de Phone Number [facility] [place] [address] * Anaerobic Culture (09/26/2024 5:02 PM EST) Anaerobic Culture No anaerobic organisms isolated 09/30/2024 3:51 PM EST [facility] Abscess STRUCTURE OF LEFT KNEE REGION / Unknown Non Blood Collection / Unknown 09/26/2024 5:02 PM EST Comment:Left Below Knee popl iteal fluid Please perform Gram stain if not included in order Hayley Torres MD MICROBIOLOGY - GENER AL ORDERABLES Performing Organization Address City/[facility]/ZIP Co de Phone Number [facility] [place] [address] * (ABNORMAL) Abscess/Wound Aspirate Culture, Aerobic Only (09/26/2024 5:02 PM EST) Abscess/Wound Aspirate Culture Many Methicillin Resistant Staphylococcus aureus(A) VITEK 2 METHOD 09/30/2024 1:37 PM EST [facility] Gram Stain Many neutrophils(A) 09/30/2024 1:37 PM EST [facility] Gram Stain Many Gram positive cocci(A) 09/30/2024 1:37 PM EST [facility] Abscess STRUCTURE OF LEFT KNEE REGION [...] - GENER AL ORDERABLES Performing Organization Address City/[facility]/ZIP Co de Phone Number [facility] [place] [address] * Anaerobic Culture (09/26/2024 4:50 PM EST) Anaerobic Culture No anaerobic organisms isolated 09/30/2024 3:51 PM EST [facility] Abscess LEFT INGUINAL REGION STRUCTURE / Unknown Non Blood Collection / Unknown 09/26/2024 4:50 PM EST Comment:Left Groin Fluid Hayley Torres MD MICROBIOLOGY - GENER AL ORDERABLES Performing Organization Address [facility] Co de Phone Number [facility] [place] [address] * (ABNORMAL) Abscess/Wound Aspirate Culture, Aerobic Only (09/26/2024 4:50 PM EST) Abscess/Wound Aspirate Culture Many Methicillin Resistant Staphylococcus aureus(A) VITEK 2 METHOD 09/30/2024 1:36 PM EST [facility] Gram Stain Many neutrophils(A) 09/30/2024 1:36 PM EST [facility] Gram Stain Many Gram positive cocci(A) 09/30/2024 1:36 PM EST [facility] Abscess LEFT INGUINAL REGION [...] Torres MD MICROBIOLOGY - GENER AL ORDERABLES [facility] [place] [address] * (ABNORMAL) Blood Gas, Arterial POC (09/26/2024 4:43 PM EST) pH, Arterial 7.38 7.35 - 7.45 09/27/2024 7:41 AM EST [facility] PCO2, Arterial 41 35 - 45 mmHg 09/27/2024 7:41 AM EST [facility] PO2, Arterial 96 85 - 104 mmHg 09/27/2024 7:[address] [facility] Bicarbonate, Arterial 23.8 20.0 - 26.0 mmol/L 09/27/2024 7:[address] [facility] Base Excess, Arterial -1.4 -3.0 - 3.0 mmol/L 09/27/2024 7:[address] [facility] Hemoglobin, Arterial 12.6(L) 13.7 - 16.5 g/dL 09/27/2024 7:[address] [facility] Oxyhemoglobin, Arterial 96.2 94.0 - 97.0 % 09/27/2024 7:[address] [facility] Carboxyhemoglobin , Arterial 0.3 % 09/27/2024 7:[address] [facility] Comment: Nonsmokers: 0.5-1.5% COHB ?? Smokers: Variable ??but usually less than 10% ?? Toxic: 20-30% COHB ?? Lethal: Greater than 60% COHB Methemoglobin, Arterial 0.3 <=1.5 % 09/27/2024 7:[address] [facility] Sodium, Arterial 128(L) 135 - 145 mmol/L 09/27/2024 7:[address] [facility] Potassium, Arterial 3.0(LLL) 3.5 - 5.0 mmol/L 09/27/2024 7:[address] [facility] Chloride, Arterial 95(L) 98 - 107 mmol/L 09/27/2024 7:[address] [facility] Lactate, Arterial 1.7 0.5 - 2.2 mmol/L 09/27/2024 7:[address] [facility] IONIZED CALCIUM, ARTERIAL 1.09(L) 1.15 - 1.33 mmol/L 09/27/2024 7:[address] [facility] Glucose, Arterial 205(H) 65 - 199 mg/dL 09/27/2024 7:[address] [facility] Comment:Glucose Concentratio n >=200 mg/dL plus symptoms is consistent with Diabetes Mellitus. Blood ARTERIAL BLOOD / Unknown 09/26/2024 4:43 PM EST 09/27/2024 7:41 AM EST Marko Dickson MD POINT OF CARE TEST Stephanie VO [facility] [place] [address] * (ABNORMAL) POC, GLUCOSE (09/26/2024 4:29 PM EST) Glucometer, POC 213(H) 65 - 199 mg/dL 09/26/2024 4:30 PM EST [facility] Comment:Supplemental ranges: <140 mg/dL before meals <180 mg/dL all other times of the day. Blood CAPILLARY BLOOD / Unknown 09/26/2024 4:29 PM EST 09/26/2024 4:30 PM EST Marko Dickson MD POINT OF CARE TEST Stephanie VO Performing Organization Address City/[facility] Co de Phone Number [facility] [place] [address] * (ABNORMAL) Blood Gas, Venous POC (09/26/2024 3:28 PM EST) pH, Venous 7.43(H) 7.32 - 7.42 09/26/2024 3:30 PM EST [facility] PCO2, Venous 41 38 - 58 mmHg 09/26/2024 3:30 PM EST [facility] PO2, Venous 18 16 - 65 mmHg 09/26/2024 3:30 PM EST [facility] Bicarbonate, Venous 26.6 22 - 31 mmol/L 09/26/2024 3:30 PM EST [facility] Base Excess, Venous 2.3 1.9 - 4.5 mmol/L 09/26/2024 3:30 PM EST [facility] Hemoglobin, Venous 12.4(L) 13.7 - 16.5 g/dL 09/26/2024 3:30 PM EST [facility] Oxyhemoglobin, Venous 26.8 % 09/26/2024 3:[address] [facility] Carboxyhemoglobin , Venous 1.0 % 09/26/2024 3:[address] [facility] Comment: Nonsmokers: 0.5-1.5% COHB ?? Smokers: Variable ??but usually less than 10% ?? Toxic: 20-30% COHB ?? Lethal: Greater than 60% COHB Methemoglobin, Venous 0.4 <=1.5 % 09/26/2024 3:[address] [facility] Sodium, Venous 127(L) 135 - 145 mmol/L 09/26/2024 3:[address] [facility] Potassium, Venous 3.3(L) 3.5 - 5.0 mmol/L 09/26/2024 3:[address] [facility] Chloride, Venous 91(L) 98 - 107 mmol/L 09/26/2024 3:[address] [facility] Glucose, Venous 259(H) 65 - 199 mg/dL 09/26/2024 3:[address] [facility] Comment:Glucose Concentratio n >=200 mg/dL plus symptoms is consistent with Diabetes Mellitus. Lactate, Venous 2.2 0.5 - 2.2 mmol/L 09/26/2024 3:[address] [facility] Ionized Calcium, Venous 1.09(L) 1.15 - 1.33 mmol/L 09/26/2024 3:[address] [facility] Blood VENOUS BLOOD SPECIMEN / Unknown 09/26/2024 3:28 PM EST 09/26/2024 3:30 PM EST Marko Dickson MD POINT OF CARE TEST O RDERABLES [facility] [place] [address] * (ABNORMAL) Scan, Peripheral Blood (09/26/2024 2:39 PM EST) RBC Morphology Abnormal 09/26/2024 3:21 PM EST [facility] Platelet Estimate Normal Normal 09/26/2024 3:21 PM EST [facility] Microcyte 1-5 /HPF 09/26/2024 3:21 PM EST [facility] Platelet Clumps Present(A) (none) 3:21 PM EST [facility] WBC MORPHOLOGY See Comment(A) (none) 09/26/2024 3:21 PM EST [facility] Comment:Dohle BodiesToxic Gr anulation Blood VENOUS BLOOD SPECIMEN / Unknown Venipuncture / Unknown 09/26/2024 2:39 PM EST 09/26/2024 2:50 PM EST Marko Dickson MD HEMATOLOGY ORDERABLE S Performing Organization Address City/[facility]/ZIP Co de Phone Number [facility] [place] [address] * ABORH RECHECK (PATIENT HISTORY FOUND) (09/26/2024 2:39 PM EST) Pathologist [facility] ABORH Recheck Progress Complete 09/26/2024 5:[address] [facility] Blood VENOUS BLOOD SPECIMEN / Unknown Venipuncture / Unknown 09/26/2024 2:39 PM EST 09/26/2024 2:56 PM EST Marko Dickson MD BLOOD BANK LAB ORDER [facility] [place] [place] [address] * (ABNORMAL) Hepatic Function Panel (09/26/2024 2:39 PM EST) Albumin 3.1(L) 3.2 - 5.2 g/dL 09/26/2024 4:23 PM EST [facility] Aspartate Aminotransferase 16 <=39 unit/L 09/26/2024 4:23 PM EST [facility] Alanine Aminotransferase 14 0 - 55 unit/L 09/26/2024 4:23 PM EST [facility] Alkaline Phosphatase 160(H) 40 - 130 unit/L 09/26/2024 4:[address] [facility] Bilirubin, Total 0.4 <=1.3 mg/dL 09/26/2024 4:[address] [facility] Bilirubin, Direct 0.2 0.0 - 0.3 mg/dL 09/26/2024 4:[address] [facility] Protein, Total 7.0 6.1 - 8.0 g/dL 09/26/2024 4:[address] [facility] Blood VENOUS BLOOD SPECIMEN / Unknown Venipuncture / Unknown 09/26/2024 2:39 PM EST 09/26/2024 2:50 PM EST Marko Dickson MD CHEMISTRY ORDERABLES Performing Organization Address City/State/[facility] Co de Phone Number [facility] [place] [address] * (ABNORMAL) Basic Metabolic Panel (09/26/2024 2:39 PM EST) Glucose 254(H) 65 - 199 mg/dL 09/26/2024 4:[address] [facility] Comment:Glucose Concentratio n >=200 mg/dL plus symptoms is consistent with Diabetes Mellitus. Blood Urea Nitrogen 9(L) 10 - 20 mg/dL 09/26/2024 4:[address] [facility] Creatinine 0.55(L) 0.80 - 1.50 mg/dL 09/26/2024 4:[address] [facility] Sodium 127(L) 135 - 145 mMol/L 09/26/2024 4:[address] [facility] Potassium 3.4(L) 3.5 - 5.0 mMol/L 09/26/2024 4:[address] [facility] Chloride 89(L) 98 - 107 mMol/L 09/26/2024 4:[address] [facility] Carbon Dioxide 25 22 - 31 mMol/L 09/26/2024 4:[address] [facility] Anion Gap 13 5 - 15 mMol/L 09/26/2024 4:32 PM EST [facility] Calcium 8.9 8.5 - 10.5 mg/dL 09/26/2024 4:32 PM EST [facility] Est Glomerular Filtration Rate - Male 121 mL/min/1. 73 m?? 09/26/2024 4:32 PM EST [facility] Comment: This patient's [...] PM EST Hayley Torres MD CHEMISTRY ORDERABLES [facility] [place] [address] * (ABNORMAL) CBC (with Diff) (09/26/2024 2:39 PM EST) White Blood Cell 22.76(H) 4.00 - 9.50 x10(3)/mc L 09/26/2024 3:21 PM EST [facility] Red Blood Cell 4.20(L) 4.58 - 5.54 x10(6)/mc L 09/26/2024 3:21 PM EST [facility] Hemoglobin 12.3(L) 13.7 - 16.5 g/dL 09/26/2024 3:21 PM EST [facility] Hematocrit 35.0(L) 40.5 - 48.5 % 09/26/2024 3:[address] [facility] Mean Cell Volume 83.3 82.9 - 93.1 fL 09/26/2024 3:[address] [facility] Mean Cell Hemoglobin 29.3 27.5 - 32.1 pg 09/26/2024 3:[address] [facility] Mean Cell Hemoglobin Concentration 35.1 32.0 - 35.7 g/dL 09/26/2024 3:[address] [facility] Platelet 277 145 - 357 x10(3)/mc L 09/26/2024 3:[address] [facility] Mean Platelet Volume 9.6 7.6 - 12.9 fL 09/26/2024 3:[address] [facility] RDW Standard Deviation 37.9 36.0 - 45.0 fL 09/26/2024 3:[address] [facility] RDW coefficient of variation 12.6 11.4 - 13.8 % 09/26/2024 3:[address] [facility] NRBC% auto 0.0 % 09/26/2024 3:[address] [facility] NRBC Absolute <0.01 <0.01 x10(3)/mc L 09/26/2024 3:[address] [facility] Neutrophil % 84.0 % 09/26/2024 3:[address] [facility] Comment:This is an appended report. These results have been appended to a previously preliminary verified report. Neutrophil Absolute (ANC) - Automated 19.10(H) 1.70 - 6.10 x10(3)/mc L 09/26/2024 3:[address] [facility] Comment:This is an appended report. These results have been appended to a previously preliminary verified report. Lymph % 6.2 % 09/26/2024 3:[address] [facility] Comment:This is an appended report. These results have been appended to a previously preliminary verified report. Lymph Absolute 1.41 0.90 - 3.20 x10(3)/mc L 09/26/2024 3:[address] [facility] Comment:This is an appended report. These results have been appended to a previously preliminary verified report. Monocyte % 8.1 % 09/26/2024 3:[address] [facility] Comment:This is an appended report. These results have been appended to a previously preliminary verified report. Monocyte Absolute 1.85(H) 0.30 - 0.90 x10(3)/mc L 09/26/2024 3:[address] [facility] Comment:This is an appended report. These results have been appended to a previously preliminary verified report. Eos % 0.0 % 09/26/2024 3:[address] [facility] Comment:This is an appended report. These results have been appended to a previously preliminary verified report. Eos Absolute <0.04 0.00 - 0.40 x10(3)/mc L 09/26/2024 3:[address] [facility] Comment:This is an appended report. These results have been appended to a previously preliminary verified report. Basophil % 0.5 % 09/26/2024 3:[address] [facility] Comment:This is an appended report. These results have been appended to a previously preliminary verified report. Baso Absolute 0.11(H) 0.00 - 0.10 x10(3)/mc L 09/26/2024 3:[address] [facility] Comment:This is an appended report. These results have been appended to a previously preliminary verified report. Immature Gran % 1.2 % 3:[address] [facility] Comment:This is an appended report. These results have been appended to a previously preliminary verified report. Immature Gran Absolute 0.28(H) 0.00 - 0.04 x10(3)/mc L 09/26/2024 3:[address] [facility] Comment:This is an appended report. These results have been appended to a previously preliminary verified report. Blood VENOUS BLOOD SPECIMEN / Unknown Venipuncture / Unknown 09/26/2024 2:39 PM EST 09/26/2024 2:50 PM EST Hayley Torres MD HEMATOLOGY ORDERABLE S Performing Organization Address [facility]/ZIP Co de Phone Number [facility] [place] [address] * Phosphorus (09/26/2024 2:39 PM EST) [facility] Phosphorus 3.2 2.5 - 4.5 mg/dL 09/26/2024 4:05 PM EST [facility] Blood VENOUS BLOOD SPECIMEN / Unknown Venipuncture / Unknown 09/26/2024 2:39 PM EST 09/26/2024 2:50 PM EST Marko Dickson MD CHEMISTRY ORDERABLES Performing Organization Address [facility] Co de Phone Number [facility] [place] [address] * (ABNORMAL) Magnesium (09/26/2024 2:39 PM EST) [facility] Magnesium 0.65(L) 0.69 - 1.07 mMol/L 09/26/2024 4:05 PM EST [facility] Blood VENOUS BLOOD SPECIMEN / Unknown Venipuncture / Unknown 09/26/2024 2:39 PM EST 09/26/2024 2:50 PM EST Marko Dickson MD CHEMISTRY ORDERABLES Performing Organization Address [facility] Co de Phone Number [facility] [place] [address] * Type and screen ([facility]/BABITA) (09/26/2024 2:39 PM EST) [facility] ABORH Type A POSITIVE 09/26/2024 3:[address] [facility] PATIENT HISTORY Found 09/26/2024 3:[address] [facility] Expires at [id number] on: 09/29/2024 09/26/2024 3:[address] [facility] ANTIBODY SCREEN AUTOMATED Negative 09/26/2024 3:[address] [facility] T&S only valid at [facility] 09/26/2024 3:[address] [facility] Blood VENOUS BLOOD SPECIMEN / Unknown Venipuncture / Unknown 09/26/2024 2:39 PM EST 09/26/2024 2:[address] [facility] - 09/26/2024 3:45 PM EST This Type and Screen result is only valid at the [facility] Marko Dickson MD BLOOD BANK LAB ORDER [facility] [place] [address] * (ABNORMAL) Fibrinogen (09/26/2024 2:39 PM EST) Fibrinogen >1,000(H) 200 - 393 mg/dL 09/26/2024 3:09 PM EST [facility] Comment: A fibrinogen level >100 mg/dL is adequate for hemostasis in most patients without underlying bleeding disorders. Blood VENOUS BLOOD SPECIMEN / Unknown Venipuncture / Unknown 09/26/2024 2:39 PM EST 09/26/2024 2:50 PM EST Marko Dickson MD HEMATOLOGY ORDERABLE S Performing Organization Address City/[facility]/ZIP Co de Phone Number [facility] [place] [address] * APTT (09/26/2024 2:39 PM EST) Partial Thromboplastin Time 36 25 - 37 sec 09/26/2024 3:09 PM EST [facility] Comment: The PTT is NOT appropriate for heparin monitoring. Use the Anti-Xa level for heparin monitoring (HEP UFH) or LMWH monitoring (HEP LMW). A PTT less than 37 seconds generally indicates adequate hemostasis. Blood VENOUS BLOOD SPECIMEN / Unknown Venipuncture / Unknown 09/26/2024 2:39 PM EST 09/26/2024 2:50 PM EST Marko Dickson MD HEMATOLOGY ORDERABLE S [facility] [place] [address] * (ABNORMAL) Prothrombin Time (09/26/2024 2:39 PM EST) Prothrombin Time 21.6(H) 9.4 - 12.5 sec 09/26/2024 3:09 PM EST [facility] International Normalization Ratio 1.9 <=4.9 09/26/2024 3:09 PM EST [facility] Comment: An INR < 2.0 indicates [...] MD HEMATOLOGY ORDERABLE S Performing Organization Address [facility]/ZIP Co de Phone Number [facility] [place] [address] * (ABNORMAL) POC, GLUCOSE (09/26/2024 2:36 PM EST) Glucometer, POC 268(H) 65 - 199 mg/dL 09/26/2024 2:36 PM EST [facility] Comment:Supplemental ranges: <140 mg/dL before meals <180 mg/dL all other times of the day. Blood CAPILLARY BLOOD / Unknown 09/26/2024 2:36 PM EST 09/26/2024 2:36 PM EST Marko Dickson MD POINT OF CARE TEST O RDERABLES Performing Organization Address City/[facility]/ZIP Co de Phone Number [facility] [place] [address] * (ABNORMAL) Blood culture (09/26/2024 2:22 PM EST) Blood Culture Methicillin Resistant Staphylococcus aureus(Critical) VITEK 2 METHOD 10/07/2024 7:40 AM EST [facility] Comment: detected by PCR Isolate saved. If future testing is required, contact the Microbiology Brand Marketing Manager. Gram Stain Aerobic Bottle: Gram positive cocci in clusters(Critical ) 10/07/2024 7:40 AM EST [facility] Blood VENOUS BLOOD SPECIMEN [...] Marko Dickson MD MICROBIOLOGY - BLOOD ORDERABLES [facility] [place] [address] * Request For 2nd Read CT Lower Extremity (09/26/2024 1:50 PM EST) WORKSTATION ID [id number] DH RAD Anatomical Region Laterality Modality Hip, [...] have questions please contact the health pet care associate that requested your imaging first. ? Narrative 09/26/2024 3:01 PM EST EXAMINATION: REQUEST FOR 2ND READ CT LOWER EXTREMITY CLINICAL HISTORY: Pt s/p LLE femoral-below knee popliteal bypass with PTFE graft, c/f infection surrounding graft, en route to [facility] for possible vascular surgery intervention; Sending Institution [facility]; Date of exam [id number]; I believe [...] on series 3, image 8 and 641, 272, 024, 442. No other rim-enhancing fluid collection is seen. [...] c/f infection surrounding graft, en route to [facility] for possiblevascular surgery intervention; Sending Institution [facility]; Date of exam [id number]; Ibelieve a [...] who have questions please contactthe health pet care associate that requested your imaging first. Marko Dickson [...] Intravenous, EVERY 6 HOURS PRN, Starting on 10/01/24 at 0219, Until Tu10/10/24 at 1912, High Blood Pressure, Please give [...] 3 mg, Oral, NIGHTLY, First dose on 10/02/24 at 0015, Until Discontinued, Routine Given 10/09/2024 [...] 2115 (New Bag - Provider: Lauren Zavala RN)2145 (Stopped - Provider: Lauren Zavala RN) DAPTOmycin [...] Hernandez 1446 (New Bag - Provider: Terell Araiza RN)1516 (Stopped - Provider: Terell Araiza RN) heparin (porcine) (5,000 units/1 mL) subcutaneous injection 5,000 Units 5,000 Units, Subcutaneous, EVERY 8 HOURS SCHEDULED, First dose on Wed09/26/24 at 2200, Until Discontinued, Routine 0604 (Given - Provider: Misael Bo RN)1420 (Given - Provider: Indira Tracey RN)2157 (Given - Provider: Jordyn Navas RN) 0615 (Given - Provider: Jordyn Navas RN)141 (Given - Provider: Indira Tracey RN)211 (Given - Provider: Lauren Zavala RN) 0605 (Given - Provider: Lauren Zavala RN)1446 (Given - Provider: Terell Araiza RN) insulin glargine-ygfn (Semglee) (100 unit/mL) subcutaneous injection vial 25 Units 25 Units, Subcutaneous, 2 TIMES DAILY, First dose (after last modification) on Wed09/28/24 at 0900, Until Discontinued, Routine 0903 (Given - Provider: Indira Tracey RN)2029 (Given - Provider: Jordyn Navas RN) 09 (Given - Provider: Jaja Diallo RN)202 (Given [...] Routine 0930 (Given - Provider: Indira Tracey RN)142 (Given - Provider: Indira Tracey RN)1754 (Given [...] Navas RN) 0035 (Given - Provider: Jordyn Navas, DAVID)0400 (Not Given - Provider: Jordyn Navas RN [...] on 10/01/24 at 0900, Until Discontinued, Routine 0859 (Given - Provider: Indira Tracey RN) 0902 (Given - Provider: Jaja Diallo, DAVID) 0832 (Given - Provider: Terell Araiza RN) magnesium oxide (Mag-Ox) tablet 400 mg 400 mg, Oral, 2 TIMES DAILY, First dose on 09/30/24 at 1200, Until Discontinued, Routine 0900 (Given - Provider: Indira Tracey RN)2027 (Given - Provider: Jordny Navas RN) 09 (Given - Provider: Jaja Diallo RN)2022 (Given - Provider: Lauren Zavala RN) 08 (Given - Provider: Terell Araiza, RN) melatonin tablet 3 mg 3 mg, Oral, NIGHTLY, First dose on Wed10/02/24 at 0015, Until Discontinued, Routine 2027 (Given - Provider: Jordyn Navas, DAVID) 2022 (Given - Provider: Lauren Zavala RN) [...] Diallo RN)171 (Given - Provider: Jeana Cabrera LPN)211 (Given - Provider: Lauren Zavala RN) 0836 [...] Intravenous, EVERY 6 HOURS PRN, Starting on 10/01/24 at 0219, Until Wed10/10/24 at 191, High Blood Pressure, Please give for SBP [...] on 10/01/24 at 0848, Until Wed10/10/24 at 191, Constipation, Give an additional (2nd) dose of [...] on 10/01/24 at 0848, Until Wed10/10/24 at 191, Constipation, Give if no BM 2 hr [...] 17 g, Oral, DAILY PRN, Starting on 10/01/24 [...] documented in this encounter Care Teams Research Animal Facility Supervisor Relationship Specialty Start Date End Date Charles Romero PA [facility] [place] [address] PCP - General Internal Medicine 09/18/24 documented as of this encounter
--- OUTSIDE RECORDS SUMMARY | 2024-10-20 12:45 | XMS_ITS | Encounter Summary ---
Author Organization [facility] [place] [address] Care Team Providers Care Machine Sander Name Role Phone Charles Romero Primary Care Provider + Reason for Visit * Auth/Cert (Routine) Specialty Diagnoses / Procedures Referred By William moses Referred To Contact Diagnoses Vascular graft infection, initial encounter Sepsis [A41.9] T82.7XXA Procedures EMERGENCY IPI Angel Gonsalez MD [facility] [place] [place] [address] [facility] Referral ID Status Reason Start Date Expiration Date Visits Re quested Visits Authorized [id number] 1 1 Encounter Details Date Type Department Care Team (Late st Contact Info) Description 09/27/2024 3:47 PM EST Anesthesia Event [place] [address] Joaquina Amor MD [facility] [place] [address] Marco Santana MD [facility] [place] [address] Anesthesia Record Procedure Summary Procedure Name Responsible Anesthesiologist Anesthesia Start Time Anesthesia Stop Time DEBRIDEMENT SKIN AND SUBCU, LOWER EXTREMITY (WRVU 1.01) (Left) Joaquina Amor MD 09/27/24 1547 09/27/24 1741 Events Date Time Event Comment 09/27/2024 1440 1544 AN Verify 1547 Start 1547 An Start Data 1600 An Induction 1604 An Intubation 1608 Anesthesia Ready 1611 Handoff Intra-procedure anesthesia care was transferred after review of the patient's history, current anesthetic/surgical status and procedural plan, anticipated issues and expected post-operative course (including disposition.) Franklyn Li, RESIDENTIAL DOOR UNIT INSTALLER 1625 Procedure Start 1653 Handoff Intra-procedure anesthesia care was transferred after review of the patient's history, current anesthetic/surgical status and procedural plan, anticipated issues and expected post-operative course (including disposition.) Franklyn Li, RESIDENTIAL DOOR UNIT INSTALLER 1720 Procedure Stop 1722 Extubation/LMA Out 1731 an stop data 1731 Quick Note Switched to tra nsport monitor. 1741 Recovery or ICU Handoff Bronwyn ent care was transferred to the destination unit staff after review of the patient's medical history, current anesthetic/surgical status and plan, according to the Provider Handoff Checklist. 1741 Stop Meds Name Total midazolam 2 mg fentaNYL 100 mcg lidocaine IV 100 mg propofoL 200 mg propofol INF 336.54 mg dexmedeTOMIDine 4 mcg/mL 30 mcg rocuronium 100 mg sugammadex 200 mg PHENYLephrine 160 mcg ondansetron 8 mg piperacillin-tazobactam (Zos yn) 3.375 g vial attach to sodium chloride 0.9% 50 mL Mini-Bag Plus 3.375 g HYDROmorphone 1.5 mg PHENYLephrine INF 860 mcg lactated ringers infusion 800 mL * Agents Name O2 * Blood [...] by Liana Mccormack RN PIV 09/26/24; 1200; ujru-hfj-iscgaa catheter system; 18 gauge; median cubital vein (antecubital fossa), left; [facility]; site symptomatic; 10/04/24; 1100 09/26/24 1200 by Pamela Eli RN 10/04/24 1100 by Liana Mccormack RN PIV 09/26/24; 1534; 20 gauge; basilic vein (medial side of arm), right; site symptomatic; 10/04/24; 1100 09/26/24 1534 by Pamela Eli RN 10/04/24 1100 by Liana Mccormack RN Arterial Line 09/26/24; 1606; radi al artery, left; 20 gauge; Anatomical Landmarks; continuous blood pressure monitoring, frequent blood gas measurement; Gio Christopher setter cold rolling machine; Sterile Prep, Sterile Gloves; 09/28/24; 0200 09/26/24 1606 by Jules Christopher RESIDENTIAL DOOR UNIT INSTALLER 09/28/24 0200 by Mariya Shi RN PIV 09/26/24; 1620; iojl-mpg-hfqzke catheter system; 14 gauge; median cubital vein (antecubital fossa), right; Ultrasound Guidance; Cheryl Santana; 10/02/24; 1000 09/26/24 1620 by Jules Christopher, RESIDENTIAL DOOR UNIT INSTALLER 10/02/24 1000 by Cyndi Castro RN Urethral Catheter 09/26/24; 1620; Surg wei longer than 2 hours, Physician order, Need for intraoperative urine output monitoring; Immobility without alternative; indwelling double lumen catheter; hydrophilic coated, latex; 14; inserted at [facility]; 1; 5; 10; none; drainage bag; 10/03/24; 1102 09/26/24 1620 by Candie Tatum RN 10/03/24 1102 by Audrey Valdes RN Open Drain 09/26/24; 1806; Left ; Thigh; (1 inch yung) 09/26/24 1806 by Linda Pollock RN 09/27/24 1703 by Ignacia Vazquez RN Intentionally Retained Foreign Objects 09/26/24; 1809; Dr Torres; (Left Groin); Betadine soaked single piece of kerlix, 1 small piece of white wound vac sponge; 09/27/24; 17009/26/24 180 by Linda Pollock RN 09/27/24 170 by Ignacia Vazquez RN Intentionally Retained Foreign Objects 09/26/24; 1810; Dr Torres; (Leg); Medial; betadine soaked one portion of kerlix; 09/27/24; 17009/26/24 181 by Linda Pollock RN 09/27/24 170 by Ignacia Vazquez RN ETT Mask Ventilation: Adjunct (2); ETT Type: Cuffed, Oral; ETT Size: 7.5 mm; Mac Blade: 4; Notes: Asleep, Pre-O2, Stylette, Cricoid Pressure; Attempts: 1; Laryngoscopy Grade: 2; ETT Placement Verified By: Auscultation, Capnometry; Secured at Teeth: 23 cm; Inserted by: Franklyn Li RESIDENTIAL DOOR UNIT INSTALLER; Removal Date: 09/27/24; Removal Time: 17209/27/24 1604 by Franklyn Li RESIDENTIAL DOOR UNIT INSTALLER 09/27/24 1722 by Desean Chavis CRNA Open Drain 09/27/24; 1704; Left , Anterior; Groin; (1/2 YUNG) 09/27/24 1704 by Ignacia Vazquez RN 10/02/24 1428 by Thuy Bennett RN Open Drain 09/27/24; 1704; Left , Anterior, Medial; Thigh; (1/2 YUNG) 09/27/24 1704 by Ignacia Vazquez RN 10/02/24 1429 by Thuy Bennett RN Open Drain 09/27/24; 1705; Left , Anterior, Distal; Thigh; (1/2 YUNG) 09/27/24 170 by Ignacia Vazquez RN 10/02/24 1429 by Thuy Bennett RN Intentionally Retained Foreign Objects 09/27/24; 1708; DR. TORRES; Other (Comment) (GROIN); Left; WHITE WOUND VAC SPONGE X1; 09/29/24; 1446; Dr Ruiz 09/27/24 1708 by Ignacia Vazquez RN 09/29/24 1446 by Linda Pollock RN documented in this encounter Social History Tobacco Use Types Packs/Day Years Used Date Smoking Tobacco: Every Day Cigarettes 1 25 Started: 12/28/1986; Last attempted to quit: 12/28/2011 Smokeless Tobacco: Never Alcohol Use Standard Drinks/Week Comments No 0 (1 standard drink = 0.6 oz pur e alcohol) [facility] Utilities Answer Date Recorded In [...] OR Notes * Anesthesia Postprocedure Evaluation - Joaquina Amor MD - 09/27/2024 6:00 PM EST Department of Anesthesiology Post-procedure Note Patient: Lux Dixon Jr. Procedure Summary Date: 09/27/24 Room / Location: [facility] OR [address] [place] [address] MAIN OR Anesthesia Start: 154 Anesthesia Stop: 1740 Procedure: DEBRIDEMENT SKIN AND SUBCU, LOWER EXTREMITY (WRVU 1.01) (Left) Diagnosis: (Infected explanted left leg bypass graft) Surgeons: Hayley Torres MD Responsible Provider: Joaquina Amor MD Anesthesia Type: general ASA Status: 3 All Anesthesia Providers: Anesthesiologist: Hailey Connor MD; Joaquina Amor MD RESIDENTIAL DOOR UNIT INSTALLER: Desean Chavis CRNA; Franklyn Li CRNA Vitals Value Taken Time BP Temp 37.4 ??C (99.3 ??F) 09/27/24 1740 Pulse 103 09/27/24 1759 Resp 21 09/27/24 1759 SpO2 92 % 09/27/24 1759 Pain Level 0 09/27/24 1740 Vitals shown include unfiled device data. Patient Location: ICU Level of Consciousness: Conscious but Sleepy Pain Management: Satisfactory Analgesia PONV: None Cardiovascular Status: At Baseline and Hemodynamically Stable Respiratory Status: Stable Respiratory Status and Supplemental O2 (NC or FM) Postoperative Fluid Status: Intravascular EUvolemia Possible Anesthetic Complications: NONE apparent at time of evaluation Final Primary Anesthesia Type: General (The anesthetic type performed was the same as planned.) Comments: Joaquina Amor MD * Anesthesia Preprocedure Evaluation - Hailey Connor MD - 09/27/2024 2:37 PM EST Pre-Anesthesia Evaluation for: Lux Dixon Jr. a 49 y.o. male. Procedure(s): DEBRIDEMENT SKIN [...] 3.51) performed by Thony Garcia MD at [facility] MAIN OR ??? PRO BYPASS GRAFT OTHR, FEM-TIBIAL Left 08/01/2024 @BYPASS GRAFT, FEM-ANT TIBIAL, -POST TIBIAL, -PERONEAL, -DP W\ SYNTHETIC CONDUIT (WRVU 23.66) performed by Lisette Maldonado MD at [facility] MAIN OR ??? PRO CABG, ARTERY-VEIN, SINGLE 01/04/2012 @CABG, VENOUS & ARTERIAL GRAFT;SINGLE VEIN GRAFT performed by INNA TOVAR at [facility] MAIN OR ??? PRO ENDOSCOPY W/VIDEO-ASST VEIN HARVEST, CABG 01/04/2012 ENDOSCOPIC HARVEST VEIN(S) FOR CABG performed by INNA TOVAR at [facility] MAIN OR ??? VS ARTERIOGRAM LOWER EXTREMITY VASCULAR SURGERY 07/20/2024 VS Arteriogram Lower Extremity Vascular Surgery 07/20/2024 Taylor Ruiz MD [facility] INTERVENTIONL RAD Social History Tobacco [...] 8.5 oz) Last edited 09/27/24 1400 by MICHEL Airway Assessment: Mallampati: II TM distance: >3 FB Neck ROM: full Cardiovascular Assessment: Rhythm: regular Rate: normal Pulmonary Assessment: unlabored breathing Dental Assessment: (+) edentulous Misc Assessment: IV access: Peripheral line Last Filed Perioperative Cognitive Screening Value Time User 4AT TOTAL Score: 0 05/31/2024 7:25 PM Maribel Quinn RN Anesthesia Plan: ASA 3 general, with a(n) intravenous induction 49M with a h/o HTN, HLD, DM2, (SGLT2i), depression, CAD s/p 2v CABG (2011, SVG to PDA known closed 08/2013), tobacco use, cocaine use, obesity, narcolepsy, and chronic limb ischemia of LLE s/p toe amps and LLE bypass graft now admitted with graft infection s/p explant and washout on 09/26 now returning to OR for further exploration/washout. Plan for GA w/ ETT, PIV x2, A-line in situ. Region - Other Informed Consent: Plan discussed with RESIDENTIAL DOOR UNIT INSTALLER. Anesthesia Screening documented in this encounter Plan of Treatment Upcoming Encounters Date Type Department Care Team (Late st Contact Info) Description 10/23/2024 1:00 PM EST Appointment XRay at [address] [place] [address] Isabela Hayward, RESHMA [facility] [place] [address] 11/09/2024 1:30 PM EST Office [place] [address] Isabela Hayward APRN [facility] [place] [address] 11/10/2024 10:00 AM EST Office [place] [phone] Dai Whitman, RESHMA 11/21/2024 2:15 PM EST [place] [phone] Dayanara Grover MD [facility] [place] [address] documented as of this encounter Visit Diagnoses Not on filedocumented in this encounter Administered Medications Inactive Administered Medications - up to 3 most recent administrations Medication Order MAR Action Action Date Dose Rate Site dexmedeTOMIDine (Precedex) (4 mcg/mL) bolus injection (Anesthsia) Intravenous, PRN, Starting on Wed09/27/24 at 1600, Until Wed09/27/24 at 1743, Anesthesia Intra-op, Routine Given 09/27/2024 4:13 PM EST 10 mcg Given 09/27/2024 4:07 PM EST 8 mcg Given 09/27/2024 4:02 PM EST 4 mcg fentaNYL (pf) (50 mcg/mL) multi-dose injection Intravenous, PRN, Starting on Wed09/27/24 at 1600, Until Wed09/27/24 at 1743, Anesthesia Intra-op, Routine Given 09/27/2024 4:05 PM EST 50 mcg Given 09/27/2024 4:00 PM EST 50 mcg HYDROmorphone (Dilaudid) (2 mg/mL) multi-dose injection solution Intravenous, PRN, Starting on Wed09/27/24 at 1612, Until Wed09/27/24 at 1743, Anesthesia Intra-op, Routine Given 09/27/2024 5:15 PM EST 0.2 mg Given 09/27/2024 5:12 PM EST 0.3 mg Given 09/27/2024 4:40 PM EST 0.5 mg lactated ringers infusion 100 mL/hr, Intravenous, CONTINUOUS, Starting on Wed09/27/24 at 0815, Until Wed09/27/24 at 1814 Restarted 09/27/2024 4:13 PM EST New Bag 09/27/2024 3:44 PM EST 100 mL/hr New Bag 09/27/2024 7:54 AM EST 100 mL/hr 100 mL/hr lidocaine (pf) (Xylocaine) (20 mg/mL) 2% injection syringe Intravenous, PRN, Starting on Wed09/27/24 at 1600, Until Wed09/27/24 at 1743, Anesthesia Intra-op, Routine Given 09/27/2024 4:00 PM EST 100 mg midazolam (pf) (Versed) (1 mg/mL) multi-dose injection Intravenous, PRN, Starting on Wed09/27/24 at 1545, Until Wed09/27/24 at 1743, Anesthesia Intra-op, Routine Given 09/27/2024 3:45 PM EST 2 mg ondansetron (pf) (Zofran) (2 mg/mL) injection Intravenous, PRN, Starting on Wed09/27/24 at 1658, Until Wed09/27/24 at 1743, Anesthesia Intra-op, Routine Given 09/27/2024 4:58 PM EST 8 mg PHENYLephrine (Erik-Synephrine) (80 mcg/mL) in sodium chloride 0.9% 250 mL infusion Intravenous, CONTINUOUS PRN, Starting on Wed09/27/24 at 1609, Until Wed09/27/24 at 1743, Anesthesia Intra-op, Routine Rate/Dose Change 09/27/2024 4:42 PM EST 10 mcg/min 7.5 mL/hr Rate/Dose Change 09/27/2024 4:37 PM EST 20 mcg/min 15 mL/h r Rate/Dose Change 09/27/2024 4:22 PM EST 30 mcg/min 22.5 mL /hr PHENYLephrine in NS (PF) (ERIK-SYNEPHRINE) 0.8 mg/10 mL (80 mcg/mL) multi-dose injection Syringe Intravenous, PRN, Starting on Wed09/27/24 at 1611, Until Wed09/27/24 at 1743, Anesthesia Intra-op, Routine Given 09/27/2024 4:11 PM EST 80 mcg Given 09/27/2024 4:09 PM EST 80 mcg piperacillin-tazobactam (Zosyn) 3.375 g vial attach to sodium chloride 0.9% 50 mL Mini-Bag Plus 3.375 g, Intravenous, EVERY 8 HOURS, 5 doses, First dose on Wed09/26/24 at 1500, Last dose on Wed09/27/24 at 1500, Administer over 4 Hours, Warning Vesicant/Irritant Medication Per natural resource economist labeling, do not administer or Y-site with lactated ringers., Indication for (Active or Suspected): Other (See comment) / PTFE vascular graft associated infection Bolus 09/27/2024 3:47 PM EST 3.375 g New Bag 09/27/2024 2:45 PM EST 3.375 g 12.5 mL/hr New Bag 09/27/2024 6:09 AM EST 3.375 g 12.5 mL/hr propofoL (Diprivan) (10 mg/mL) infusion Intravenous, CONTINUOUS PRN, Starting on Wed09/27/24 at 1600, Until Wed09/27/24 at 1743, Anesthesia Intra-op, Routine New Bag 09/27/2024 4:00 PM EST 50 mcg/kg/min 25.56 mL/hr propofoL (Diprivan) 10 mg/mL bolus injection (Anesthesia) Intravenous, PRN, Starting on Wed09/27/24 at 1600, Until Wed09/27/24 at 1743, Anesthesia Intra-op Given 09/27/2024 4:03 PM EST 50 mg Given 09/27/2024 4:00 PM EST 150 mg rocuronium (Zemuron) (10 mg/mL) multi-dose injection Intravenous, PRN, Starting on Wed09/27/24 at 1600, Until Wed09/27/24 at 1743, Anesthesia Intra-op, Routine Given 09/27/2024 4:25 PM EST 50 mg Given 09/27/2024 4:00 PM EST 50 mg sugammadex (Bridion) 100 mg/mL injection Intravenous, PRN, Starting on Wed09/27/24 at 1704, Until Wed09/27/24 at 1743, Anesthesia Intra-op, Routine Given 09/27/2024 5:13 PM EST 100 mg Given 09/27/2024 5:04 PM EST 100 mg documented in this encounter Care Teams Machine Sander Relationship Specialty Start Date End Date Charles Romero [place] [place] [address] PCP - General Internal Medicine 09/18/24 documented as of this encounter
--- OUTSIDE RECORDS SUMMARY | 2024-10-20 12:45 | XMS_ITS | Encounter Summary ---
Author Organization [facility] [place] [address] Care Team Providers Care Chemical Project Engineer Name Role Phone Charles Romero Primary Care Provider + Reason for Visit * Auth/Cert (Routine) Specialty Diagnoses / Procedures Referred By William moses Referred To Contact Diagnoses Vascular graft infection, initial encounter Sepsis [A41.9] T82.7XXA Procedures EMERGENCY IPI Angel Gonsalez MD [facility] [place] [address] [facility] Referral ID Status Reason Start Date Expiration Date Visits Re quested Visits Authorized [id number] 1 1 Encounter Details Date Type Department Care Team (Late st Contact Info) Description 09/28/2024 10:25 AM EST - 09/28/2024 12:15 PM EST [place] [address] Hayley Torres MD [facility] [place] [address] REV. FEM. ANASTOMOSIS OF SYN. BYPASS GRAFT USING NONAUTOGENOUS PATCH ANGIOPLASTY-JENNIFER (WRVU 23.15) Social History Tobacco Use Types Packs/Day Years Used Date Smoking Tobacco: Every Day Cigarettes 12 02 Started: 12/28/1986; Last attempted to quit: 12/28/2011 Smokeless Tobacco: Never Alcohol Use Standard Drinks/Week Comments No 0 (1 standard drink = 0.6 oz pur e alcohol) [facility] Utilities Answer Date Recorded In [...] any time in the past 12 m [facility], were you homeless or living in a skilled nursing (including now)? No 09/27/2024 DH IPV Inpatient [...] Pressure 130/81 09/28/2024 10:00 AM EST Pulse 98 09/28/2024 11:20 AM EST Temperature 36.7 ??C (98.1 ??F) 09/28/2024 1 0:00 AM EST Respiratory Rate 15 09/28/2024 11:2 0 AM EST Oxygen Saturation 99% 09/28/2024 11: 20 AM EST Inhaled Oxygen Concentration - - Weight 108.6 kg (239 lb 6.7 oz) 024 12:00 AM EST Height 179.1 cm (5' 10.51) 09/26/2024 [...] Operations/Major Procedures: 09/26/24: Explant of infected LEFT AMPOULE INSPECTOR to below-knee popliteal artery PTFE bypass [...] 2nd toe amputation who was transferred from [facility] given concern for infected left fem-BK [...] pericardial patch and PTFE willard over the AMPOULE INSPECTOR was unincorporated. - Resection of prior [...] 2 tablespoons of dried fruit. Milk and ni-ryxqi-vofci yogurt have 15 grams of carbs in a serving. A serving is 1 cup of milk or 3/4 cup (6 oz) of ck-htcaj-oyjgp yogurt. Starchy vegetables have 15 grams of carbs in a serving. A serving is ?? cup of mashed potatoes or sweet potato; 1 cup winter squash; ?? of a small baked potato; ?? cup of cooked beans; or ?? cup cooked corn or green peas. Learn how much carbs to eat each day and at each meal. A dietitian or certified social workers in health care can teach you how to keep track [...] was scheduled for a f/u nutrition evaluation. Spectrographic Analyst met pt at bedside. Pt sharedthat [...] and follow. Physical Therapy: 10/09/24: Assessment: Geovanna P Zack Jr. is hospital day #13 s/p multiple [...] Based on current findings- home (sister & wpwaxur-jh-gon's home) Consult Recommendations: No other consults recommended [...] signs stable. Estimated Blood Loss: None Karolyn E Tristan, MD Vascular Surgery, 8173 10/09/24 Important Studies and Lab Data: Labs: [...] 05/29/2024, no significant changes. Procedure Limited - 94609. Doppler - 87835. Color Doppler - 78376. Suboptimal quality. This study is limited because [...] on series 3, image 8 and 641, 392, 039, 412. No other rim-enhancing fluid collection is seen. [...] PM Isabela Hayward APRN Infectious Disease at [facility] Arrive at: Home [phone] To view instructions for your video visit, click here, or visit this website: [email or web address] If you have not previously downloaded the [facility] patient portal software, MyScreen, please do so by clicking one of the links below or searching in your device's lobito store. [employer] devices 11/09/2024 1:30 PM Isabela Hayward APRN Infectious Disease at [facility] Arrive at: Solar Installation Supervisor Area [phone] 11/21/2024 2:15 PM Dayanara Grover MD Endocrinology at [facility] Arrive at: Solar Installation Supervisor Area 3A [phone] Future Orders Complete By Expires CBC (with Diff) [GAE021 Custom] 10/17/2024 12/11/2024 Process Instructions: INCLUDES: WBC, RBC, Hgb, Hct, Platelets, RBC Indices and Differential Scheduling Instructions: Comments: Questions: OPAT: Order / Recommendation for Post Discharge IV Antibiotic Management [BPF070 CPT(R)] As directed Process Instructions: If no progress note charted, please enter Clinical details in comments. Scheduling Instructions: Comments: - If this order was signed greater than 72 hours prior to [facility] discharge, please call to confirm the accuracy of this order. Please Fax all results to: [facility] Program Infectious Disease Section [facility], [place] [address] FAX: - After hours, please contact the Infectious Disease Physician operation manager at . - Line care instructions - see flush/heparin orders. Facilities may follow organizational policies/practices regarding heparin. - care home for medication administration/hook and eye sewing machine operator and catheter care/maintenance authorized. - CVC/PICC Dressing Change weekly and PRN Please use CHG or Bio Patch RN: Please care for PICC line including dressing changes weekly and prn. Please draw labs every Wednesday and PRN and fax results to [facility] at [phone]. Please draw labs off PICC line. Please see [facility] for lab draw details. Please RN visit [...] Amaya Hernandez MD Referral for Outpatient Antibiotics [SXP4501 CPT(R)] As directed Process Instructions: Scheduling Instructions: [...] admission to Home Health. [address] [place] [address] Phone Number: [phone] (home) Date of : 1975 Inpatient DOCUMENTATION FOR VNA SERVICES (INCLUDING THOSE PATIENTS WITH MEDICARE COVERAGE REQUIRING HOME VNA SERVICES AND/OR HOSPICE SERVICES) PATIENT'S LOCATION: Geovanna Dixon Jr. [address] [place] [address] [phone] (home) Cell: Telephone Information: Restoration Officer's Name: Geovanna In discussion with the attending physician, it is certified that this patient is under their care and that they, or a Nurse Practitioner, Clinical Nurse specialist or Physician Baby Nurse who is working directly with them, had [...] for managing ADLs. HOME HEALTH CARE AGENCY: [facility]. [address] [place] [address] START OF CARE: within 24-48 hours of discharge Patient has Medicare Please note that any additional orders needs or changes will need to be obtained from this patient's PCP: JUSTIN Roberson [address] / [facility] [address] . All VNA agencies which cover the area of patient's residence have been reviewed, either verbally or in writing, andpatient/family have chosen the home health care agency noted. Questions: Disciplines Requested: Nursing Physical Therapy Occupational Therapy Recurring Lab Work Interval Expires CBC (with Diff) [KPQ004 Custom] Once a week until 12/10/2024 12/10/2024 [...] For any problems or questions please call [phone] For issues on weeknights after 5pm and weekends please call [phone] and ask for the Vascular Fellow operation manager. Discharge Medications: Your Medications New Medications Dose [...] - See Instructions). FLUSH PROTOCOL WITH MEDICATIONS ([facility]): Before med infusion: flush with NS [...] can get this completed at 3L at [facility] prior to your scheduled appointment. Stop atorvastatin [...] For any problems or questions please call [phone] For issues on weeknights after 5pm and weekends please call [phone] and ask for the Vascular Fellow operation manager. documented in this encounter Discharge Instructions [...] 2 tablespoons of dried fruit. Milk and zd-bhfqb-kmujw yogurt have 15 grams of carbs in a serving. A serving is 1 cup of milk or 3/4 cup (6 oz) of pd-rtkjl-csiil yogurt. Starchy vegetables have 15 grams of carbs in a serving. A serving is ?? cup of mashed potatoes or sweet potato; 1 cup winter squash; ?? of a small baked potato; ?? cup of cooked beans; or ?? cup cooked corn or green peas. Learn how much carbs to eat each day and at each meal. A dietitian or certified social workers in health care can teach you how to keep track [...] can get this completed at 3L at [facility] prior to your scheduled appointment. Stop atorvastatin [...] For any problems or questions please call [phone] For issues on weeknights after 5pm and weekends please call [phone] and ask for the Vascular Fellow operation manager. documented in this encounter Medications at Time [...] - See Instructions). FLUSH PROTOCOL WITH MEDICATIONS ([facility]): Before med infusion: flush with NS [...] - See Instructions). FLUSH PROTOCOL WITH MEDICATIONS ([facility]): Before med infusion: flush with NS [...] to contact. Reviewed roles and responsibilities of NUT AND BOLT ASSEMBLER and infusion vendor. Contact information for ID and Vascular team/clinic, NUT AND BOLT ASSEMBLER and infusion vendor given to pt. Discussed f/u appointments in ID 5C clinic, telephone and tele health. Pt verbalized understanding. All questions answered. IV & PO ABX Medications: Daptomycin 700mg IV daily Start/anticipated end date: 10/10/24-11/10/24 NUT AND BOLT ASSEMBLER: [place] Infusion vendor: [facility] IV Access: 4 Fr. single lumen Bard [...] 2 tablespoons of dried fruit. Milk and aq-lvkyw-ycvxu yogurt have 15 grams of carbs in a serving. A serving is 1 cup of milk or 3/4 cup (6 oz) of pz-yrqoo-rwuit yogurt. Starchy vegetables have 15 grams of carbs in a serving. A serving is ?? cup of mashed potatoes or sweet potato; 1 cup winter squash; ?? of a small baked potato; ?? cup of cooked beans; or ?? cup cooked corn or green peas. Learn how much carbs to eat each day and at each meal. A dietitian or certified social workers in health care can teach you how to keep track [...] this time. OT to complete orders. Pager: [phone] Fabián Burrows OT 10/09/2024 Occupational Therapy Rehabilitation [...] Loss: None Karolyn Hudson MD Vascular Surgery, 6398 10/09/24 * Terry Jimenez, PT - 10/09/2024 12:02 PM EST Physical Therapy Visit #2 Patient profile: Geovanna Dixon Jr. is a 49 y.o. male with a history of HTN, HLD, NSTEMI, CAD s/p CABG (12/2011), DM,obesity, PAD s/p L iliofem endart and L fem-BK pop bypass and L 2nd toe amputation who was transferred from [facility], 09/26/24 given concern for infected left fem-BK popliteal PTFE bypass. He is now s/p an explant of an infected left femoral-below knee popliteal artery bypass graft (09/26), I/D groin abscess (09/27), L GSV harvest, vein patch angioplasty, L AMPOULE INSPECTOR and BK pop w/ sartorius flap L fem, I/D, 09/29 L sartorius flap revision, vac change. 10/03/24 NPO at [facility] for OR wound exploration. Wound vac off [...] He mentions he'll stay with sister and zhnacxs-cv-drk upon DC. Pt resting in bed upon [...] up with R and down with L, flrg-pv-sovy. Balance: Sitting: NORMAL- EOB unsupported good postural [...] Based on current findings- home (sister & bogobmg-vn-dwc's home) Consult Recommendations: No other consults recommended [...] 15 (TE-F) minutes TERRY JIMENEZ PT Pager: [phone] Physical Therapy Inpatient Rehabilitation Department * María Carranza, SR. MEDIA MANAGER - 10/09/2024 11:14 AM EST Images from the original note were not included. Vascular Surgery Progress Note Geovanna Dixon Jr. is a 49 y.o. 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 He presented to [facility] on 09/26 and went to the OR [...] Daily heparin (porcine) 5,000 Units Subcutaneous Q8H [facility] lidocaine 1 patch Transdermal Q24H Operations this [...] Procedure Component Value - Date/Time Blood culture [[id number]] (Abnormal) (Susceptibility) Collected: 09/26/24 1422 Lab Status: Edited Result - FINAL Specimen: Blood, Venous Updated: 10/07/24 0740 Blood Culture Methicillin Resistant Staphylococcus aureus Comment: detected by PCR Isolate saved. If future testing is required, contact the Microbiology Dictating Transcribing Machine Servicer. Gram Stain Aerobic Bottle: Gram positive cocci in clusters Susceptibility Methicillin Resistant Staphylococcus aureus MINIMUM INHIBITORY CONCENTRATION VITEK 2 METHOD Clindamycin Resistant Daptomycin Susceptible Gentamicin Susceptible [1] Linezolid Susceptible Oxacillin Resistant Trimethoprim/Sulfa Susceptible Vancomycin Susceptible [1] Gentamicin is not appropriate for monotherapy for gram-positive infections. AFB culture [[id number]] Collected: 09/27/24 1654 Lab Status: Preliminary result Specimen: Tissue from Thigh, Left Updated: 10/05/24 1201 Acid Fast Bacilli Culture No acid fast bacilli isolated at 1 week. Acid Fast Stain No acid fast bacilli seen Blood culture [[id number]] Collected: 09/29/242123 Lab Status: Final result Specimen: Blood, Venous Updated: 10/04/24 2301 Blood Culture No growth at 120 hours Blood culture [[id number]] Collected: 09/29/242123 Lab Status: Final result Specimen: Blood, Venous Updated: 10/04/24 2301 Blood Culture No growth at 120 hours AFB culture [[id number]] Collected: 09/26/24 1702 Lab Status: Preliminary result Specimen: Abscess from Knee, Left Updated: 10/04/24 1201 Acid Fast Bacilli Culture No acid fast bacilli isolated at 1 week. Acid Fast Stain No acid fast bacilli seen Blood culture [[id number]] Collected: 09/28/24 1749 Lab Status: Final result [...] 2nd toe amputation who was transferred from [facility] given concern for infected left fem-BK popliteal PTFE bypass. He is now s/p an explantof an infected left femoral-below knee popliteal artery bypass graft (09/26), I/D groin abscess (), L GSV harvest, vein patch angioplasty, L AMPOULE INSPECTOR and BK pop w/ sartorius flap L fem, I/D, 09/29 L sartorius flap revision, vac change. 10/09/24: Progressing well post surgically. Will pull medial thigh drain today, retain sartorius flap drain along with wound vac x 3 sponges ([facility] has approved for home vac) and WTD [...] PRN PICC dressing change completed as per [facility] protocol. Positive pressure displacement connector (Max Plus) [...] 2nd toe amputation who was transferred from [facility] given concern for infected left fem-BK [...] smoking 1 week ago. He presented to [facility] on 09/26 and went to the OR [...] and PT signals present Labs: Recent Labs 10/08/24710/07/24 0006 10/06/24 0003 WBC 10.35* 11.27* 12.26* [...] Procedure Component Value - Date/Time Blood culture [[id number]] (Abnormal) (Susceptibility) Collected: 09/26/24 1422 Lab Status: Edited Result - FINAL Specimen: Blood, Venous Updated: 10/07/24 0740 Blood Culture Methicillin Resistant Staphylococcus aureus Comment: detected by PCR Isolate saved. If future testing is required, contact the Microbiology Dictating Transcribing Machine Servicer. Gram Stain Aerobic Bottle: Gram positive cocci in clusters Susceptibility Methicillin Resistant Staphylococcus aureus MINIMUM INHIBITORY CONCENTRATION VITEK 2 METHOD Clindamycin Resistant Daptomycin Susceptible Gentamicin Susceptible [1] Linezolid Susceptible Oxacillin Resistant Trimethoprim/Sulfa Susceptible Vancomycin Susceptible [1] Gentamicin is not appropriate for monotherapy for gram-positive infections. AFB culture [[id number]] Collected: 09/27/24 165 Lab Status: Preliminary result Specimen: Tissue from Thigh, Left Updated: 10/05/24 1201 Acid Fast Bacilli Culture No acid fast bacilli isolated at 1 week. Acid Fast Stain No acid fast bacilli seen Blood culture [[id number]] Collected: 09/29/242123 Lab Status: Final result Specimen: Blood, Venous Updated: 10/04/24 2301 Blood Culture No growth at 120 hours Blood culture [[id number]] Collected: 09/29/242123 Lab Status: Final result Specimen: Blood, Venous Updated: 10/04/24 2301 Blood Culture No growth at 120 hours AFB culture [[id number]] Collected: 09/26/24 1702 Lab Status: Preliminary result Specimen: Abscess from Knee, Left Updated: 10/04/24 1201 Acid Fast Bacilli Culture No acid fast bacilli isolated at 1 week. Acid Fast Stain No acid fast bacilli seen Blood culture [[id number]] Collected: 09/28/24 1749 Lab Status: Final result Specimen: Blood, Venous Updated: 10/03/24 1901 Blood Culture No growth at 120 hours Blood culture [[id number]] (Abnormal) Collected: 09/27/24 2133 Lab Status: Final result Specimen: Blood, Venous Updated: 10/02/24 0804 Blood Culture Methicillin Resistant Staphylococcus aureus Comment: Susceptibilities previously reported. Gram Stain Aerobic Bottle: Gram positive cocci in clusters Tissue Culture, Aerobic & Anaerobic [[id number]] Collected: 09/27/24 165 Lab Status: Final result Specimen: Tissue from Thigh, Left Updated: 10/01/24 1554 Narrative: The following orders were created for panel order Tissue Culture, Aerobic & Anaerobic. Procedure Abnormality Status --------- ------ Tissue Culture, Aerobic ...[[id number]] Anaerobic Culture[[id number]] Final result Please view results for these tests on the individual orders. Anaerobic Culture [[id number]] Collected: 09/27/241653 Lab Status: Final result Specimen: Tissue from Thigh, Left Updated: 10/01/24 1554 Anaerobic Culture No anaerobic organisms isolated Tissue Culture, Aerobic Only [[id number]] (Abnormal) (Susceptibility) Collected: 09/27/241653 Lab Status: Final [...] 2nd toe amputation who was transferred from [facility] given concern for infected left fem-BK popliteal PTFE bypass. He is now s/p an explantof an infected left femoral-below knee popliteal artery bypass graft (09/26), I/D groin abscess (), L GSV harvest, vein patch angioplasty, L AMPOULE INSPECTOR and BK pop w/ sartorius flap [...] 81mg daily Vibha Benson APRN 10/08/2024 Pager: [phone] * Vibha Benson APRN - 10/07/2024 8:52 AM EST Images from the original note were not included. Vascular Surgery Progress Note Geovanna Dixon Jr. is a 49 y.o. 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 He presented to [facility] on 09/26 and went to the OR [...] 4.3 3.9 CL 104 103 105 CO2 24 BUN 18 17 13 CREATININE 0.61* 0.85 0.55* PHOS 4.2 4.3 4.2 CALCIUM 9.0 8.8 9.0 Microbiology: Microbiology Results (last 7 days) Procedure Component Value - Date/Time Blood culture [[id number]] (Abnormal) (Susceptibility) Collected: 09/26/24 1422 Lab Status: Edited Result - FINAL Specimen: Blood, Venous Updated: 10/07/24 0740 Blood Culture Methicillin Resistant Staphylococcus aureus Comment: detected by PCR Isolate saved. If future testing is required, contact the Microbiology Dictating Transcribing Machine Servicer. Gram Stain Aerobic Bottle: Gram positive cocci in clusters Susceptibility Methicillin Resistant Staphylococcus aureus MINIMUM INHIBITORY CONCENTRATION VITEK 2 METHOD Clindamycin Resistant Daptomycin Susceptible Gentamicin Susceptible [1] Linezolid Susceptible Oxacillin Resistant Trimethoprim/Sulfa Susceptible Vancomycin Susceptible [1] Gentamicin is not appropriate for monotherapy for gram-positive infections. AFB culture [[id number]] Collected: 09/27/24 165 Lab Status: Preliminary result Specimen: Tissue from Thigh, Left Updated: 10/05/24 1201 Acid Fast Bacilli Culture No acid fast bacilli isolated at 1 week. Acid Fast Stain No acid fast bacilli seen Blood culture [[id number]] Collected: 09/29/242123 Lab Status: Final result Specimen: Blood, Venous Updated: 10/04/24 2301 Blood Culture No growth at 120 hours Blood culture [[id number]] Collected: 09/29/242123 Lab Status: Final result Specimen: Blood, Venous Updated: 10/04/24 2301 Blood Culture No growth at 120 hours AFB culture [[id number]] Collected: 09/26/24 1702 Lab Status: Preliminary result Specimen: Abscess from Knee, Left Updated: 10/04/24 1201 Acid Fast Bacilli Culture No acid fast bacilli isolated at 1 week. Acid Fast Stain No acid fast bacilli seen Blood culture [[id number]] Collected: 09/28/24 1749 Lab Status: Final result Specimen: Blood, Venous Updated: 10/03/24 1901 Blood Culture No growth at 120 hours Blood culture [[id number]] (Abnormal) Collected: 09/27/24 2133 Lab Status: Final result Specimen: Blood, Venous Updated: 10/02/24 0804 Blood Culture Methicillin Resistant Staphylococcus aureus Comment: Susceptibilities previously reported. Gram Stain Aerobic Bottle: Gram positive cocci in clusters Tissue Culture, Aerobic & Anaerobic [[id number]] Collected: 09/27/24 165 Lab Status: Final result Specimen: Tissue from Thigh, Left Updated: 10/01/24 1554 Narrative: The following orders were created for panel order Tissue Culture, Aerobic & Anaerobic. Procedure Abnormality Status --------- ------ Tissue Culture, Aerobic ...[[id number]] Anaerobic Culture[[id number]] Final result Please view results for these tests on the individual orders. Anaerobic Culture [[id number]] Collected: 09/27/241653 Lab Status: Final result Specimen: Tissue from Thigh, Left Updated: 10/01/24 155 Anaerobic Culture No anaerobic organisms isolated Tissue Culture, Aerobic Only [[id number]] (Abnormal) (Susceptibility) Collected: 09/27/241653 Lab Status: Final [...] is considered susceptible to doxycycline. Blood culture [[id number]] (Abnormal) Collected: 09/26/24 1845 Lab Status: Final result Specimen: Blood, Venous Updated: 10/01/24 0658 Blood Culture Methicillin Resistant Staphylococcus aureus Comment: isolated. Susceptibilities previously reported. Gram Stain Aerobic Bottle: Gram positive cocci in clusters Abscess/Wound Aspirate Culture, Aerobic & Anaerobic [[id number]] (Abnormal) Collected: 09/26/241649 Lab Status: Final result Specimen: Abscess from Groin, Left Updated: 09/30/24 1551 Narrative: The following orders were created for panel order Abscess/Wound Aspirate Culture, Aerobic & Anaerobic. Procedure Abnormality Status --------- ------ Abscess/Wound Aspirate C...[[id number]] Abnormal Final result Anaerobic Culture[[id number]] Final result Please view results for these tests on the individual orders. Anaerobic Culture [[id number]] Collected: 09/26/241649 Lab Status: Final result Specimen: Abscess from Groin, Left Updated: 09/30/24 1551 Anaerobic Culture No anaerobic organisms isolated Abscess/Wound Aspirate Culture, Aerobic & Anaerobic [[id number]] (Abnormal) Collected: 09/26/24 1702 Lab Status: Final result Specimen: Abscess from Knee, Left Updated: 09/30/24 1551 Narrative: The following orders were created for panel order Abscess/Wound Aspirate Culture, Aerobic & Anaerobic. Procedure Abnormality Status --------- ------ Abscess/Wound Aspirate C...[[id number]] Abnormal Final result Anaerobic Culture[[id number]] Final result Please view results for these tests on the individual orders. Anaerobic Culture [[id number]] Collected: 09/26/24 1702 Lab Status: Final result Specimen: Abscess from Knee, Left Updated: 09/30/24 1551 Anaerobic Culture No anaerobic organisms isolated Sonicated Tissue/Implant Culture [[id number]] (Abnormal) Collected: 09/26/24 1716 Lab Status: Final result Specimen: Vascular Graft from Leg, Left Updated: 09/30/24 1349 Sonicated Tissue/Implant Culture Methicillin Resistant Staphylococcus aureus Comment: isolated from broth culture. Susceptibilities previously reported. Abscess/Wound Aspirate Culture, Aerobic Only [[id number]] (Abnormal) (Susceptibility) Collected: 09/26/24 170 Lab Status: [...] to doxycycline. Abscess/Wound Aspirate Culture, Aerobic Only [[id number]] (Abnormal) (Susceptibility) Collected: 09/26/24 1650 Lab Status: [...] 2nd toe amputation who was transferred from [facility] given concern for infected left fem-BK popliteal PTFE bypass. He is now s/p an explantof an infected left femoral-below knee popliteal artery bypass graft (09/26), I/D groin abscess (), L GSV harvest, vein patch angioplasty, L AMPOULE INSPECTOR and BK pop w/ sartorius flap [...] 81mg daily Vibha Benson APRN 10/07/2024 Pager: [phone] * Karina-Jessica Mcrae, PT - 10/06/2024 3:21 PM EST 10/06/24 1805 Evaluation & Treatment Document Type contact Comment, [...] tolerate. PTto follow up early next week. IR * Benjamin Iniguez MD - 10/06/2024 11:05 [...] 2nd toe amputation who was transferred from [facility] given concern for infected left fem-BK [...] smoking 1 week ago. [place] [facility] [place] and went to the OR [...] Procedure Component Value - Date/Time AFB culture [[id number]] Collected: 09/27/241653 Lab Status: Preliminary result Specimen: Tissue from Thigh, Left Updated: 10/05/24 1201 Acid Fast Bacilli Culture No acid fast bacilli isolated at 1 week. Acid Fast Stain No acid fast bacilli seen Blood culture [[id number]] Collected: 09/29/242123 Lab Status: Final result Specimen: Blood, Venous Updated: 10/04/24 2301 Blood Culture No growth at 120 hours Blood culture [[id number]] Collected: 09/29/242123 Lab Status: Final result Specimen: Blood, Venous Updated: 10/04/24 2301 Blood Culture No growth at 120 hours AFB culture [[id number]] Collected: 09/26/24 1702 Lab Status: Preliminary result Specimen: Abscess from Knee, Left Updated: 10/04/24 1201 Acid Fast Bacilli Culture No acid fast bacilli isolated at 1 week. Acid Fast Stain No acid fast bacilli seen Blood culture [[id number]] Collected: 09/28/24 1749 Lab Status: Final result Specimen: Blood, Venous Updated: 10/03/24 1901 Blood Culture No growth at 120 hours Blood culture [[id number]] (Abnormal) Collected: 09/27/242132 Lab Status: Final result Specimen: Blood, Venous Updated: 10/02/24 0804 Blood Culture Methicillin Resistant Staphylococcus aureus Comment: Susceptibilities previously reported. Gram Stain Aerobic Bottle: Gram positive cocci in clusters Tissue Culture, Aerobic & Anaerobic [[id number]] Collected: 09/27/241653 Lab Status: Final result Specimen: Tissue from Thigh, Left Updated: 10/01/24 1554 Narrative: The following orders were created for panel order Tissue Culture, Aerobic & Anaerobic. Procedure Abnormality Status --------- ------ Tissue Culture, Aerobic ...[[id number]] Anaerobic Culture[[id number]] Final result Please view results for these tests on the individual orders. Anaerobic Culture [[id number]] Collected: 09/27/241653 Lab Status: Final result Specimen: Tissue from Thigh, Left Updated: 10/01/24 1554 Anaerobic Culture No anaerobic organisms isolated Tissue Culture, Aerobic Only [[id number]] (Abnormal) (Susceptibility) Collected: 09/27/24 1654 Lab Status: [...] is considered susceptible to doxycycline. Blood culture [[id number]] (Abnormal) (Susceptibility) Collected: 09/26/24 1422 Lab Status: Edited Specimen: Blood, Venous Updated: 10/01/24 0658 Blood Culture Methicillin Resistant Staphylococcus aureus Comment: detected by PCR Isolate saved. If future testing is required, contact the Microbiology Dictating Transcribing Machine Servicer. Gram Stain Aerobic Bottle: Gram positive cocci in clusters Susceptibility Methicillin Resistant Staphylococcus aureus VITEK 2 METHOD Clindamycin Resistant Gentamicin Susceptible [1] Linezolid Susceptible Oxacillin Resistant Trimethoprim/Sulfa Susceptible Vancomycin Susceptible [1] Gentamicin is not appropriate for monotherapy for gram-positive infections. Blood culture [[id number]] (Abnormal) Collected: 09/26/24 1845 Lab Status: Final result Specimen: Blood, Venous Updated: 10/01/24 0658 Blood Culture Methicillin Resistant Staphylococcus aureus Comment: isolated. Susceptibilities previously reported. Gram Stain Aerobic Bottle: Gram positive cocci in clusters Abscess/Wound Aspirate Culture, Aerobic & Anaerobic [[id number]] (Abnormal) Collected: 09/26/24 165 Lab Status: Final result Specimen: Abscess from Groin, Left Updated: 09/30/24 1551 Narrative: The following orders were created for panel order Abscess/Wound Aspirate Culture, Aerobic & Anaerobic. Procedure Abnormality Status --------- ------ Abscess/Wound Aspirate C...[[id number]] Abnormal Final result Anaerobic Culture[[id number]] Final result Please view results for these tests on the individual orders. Anaerobic Culture [[id number]] Collected: 09/26/24 165 Lab Status: Final result Specimen: Abscess from Groin, Left Updated: 09/30/24 1551 Anaerobic Culture No anaerobic organisms isolated Abscess/Wound Aspirate Culture, Aerobic & Anaerobic [[id number]] (Abnormal) Collected: 09/26/24 1702 Lab Status: Final result Specimen: Abscess from Knee, Left Updated: 09/30/24 1551 Narrative: The following orders were created for panel order Abscess/Wound Aspirate Culture, Aerobic & Anaerobic. Procedure Abnormality Status --------- ------ Abscess/Wound Aspirate C...[[id number]] Abnormal Final result Anaerobic Culture[[id number]] Final result Please view results for these tests on the individual orders. Anaerobic Culture [[id number]] Collected: 09/26/24 170 Lab Status: Final result Specimen: Abscess from Knee, Left Updated: 09/30/24 1551 Anaerobic Culture No anaerobic organisms isolated Sonicated Tissue/Implant Culture [[id number]] (Abnormal) Collected: 09/26/24 1716 Lab Status: Final result Specimen: Vascular Graft from Leg, Left Updated: 09/30/24 1349 Sonicated Tissue/Implant Culture Methicillin Resistant Staphylococcus aureus Comment: isolated from broth culture. Susceptibilities previously reported. Abscess/Wound Aspirate Culture, Aerobic Only [[id number]] (Abnormal) (Susceptibility) Collected: 09/26/24 170 Lab Status: [...] to doxycycline. Abscess/Wound Aspirate Culture, Aerobic Only [[id number]] (Abnormal) (Susceptibility) Collected: 09/26/24 1650 Lab Status: [...] 2nd toe amputation who was transferred from [facility] given concern for infected left fem-BK popliteal PTFE bypass. 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 Vascular Surgery Progress Note Geovanna Dixon Jr. is a 49 y.o. 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 He [place] [facility] [place] and went to the OR [...] Procedure Component Value - Date/Time Blood culture [[id number]] Collected: 09/29/242123 Lab Status: Final result Specimen: Blood, Venous Updated: 10/04/242300 Blood Culture No growth at 120 hours Blood culture [[id number]] Collected: 09/29/242123 Lab Status: Final result Specimen: Blood, Venous Updated: 10/04/24 230 Blood Culture No growth at 120 hours AFB culture [[id number]] Collected: 09/26/24 1702 Lab Status: Preliminary result Specimen: Abscess from Knee, Left Updated: 10/04/24 1201 Acid Fast Bacilli Culture No acid fast bacilli isolated at 1 week. Acid Fast Stain No acid fast bacilli seen Blood culture [[id number]] Collected: 09/28/24 1749 Lab Status: Final result Specimen: Blood, Venous Updated: 10/03/24 1901 Blood Culture No growth at 120 hours Blood culture [[id number]] (Abnormal) Collected: 09/27/242132 Lab Status: Final result Specimen: Blood, Venous Updated: 10/02/24 0804 Blood Culture Methicillin Resistant Staphylococcus aureus Comment: Susceptibilities previously reported. Gram Stain Aerobic Bottle: Gram positive cocci in clusters Tissue Culture, Aerobic & Anaerobic [[id number]] Collected: 09/27/241653 Lab Status: Final result Specimen: Tissue from Thigh, Left Updated: 10/01/24 1554 Narrative: The following orders were created for panel order Tissue Culture, Aerobic & Anaerobic. Procedure Abnormality Status --------- ------ Tissue Culture, Aerobic ...[[id number]] Anaerobic Culture[[id number]] Final result Please view results for these tests on the individual orders. Anaerobic Culture [[id number]] Collected: 09/27/241653 Lab Status: Final result Specimen: Tissue from Thigh, Left Updated: 10/01/24 1554 Anaerobic Culture No anaerobic organisms isolated Tissue Culture, Aerobic Only [[id number]] (Abnormal) (Susceptibility) Collected: 09/27/241653 Lab Status: Final [...] is considered susceptible to doxycycline. Blood culture [[id number]] (Abnormal) (Susceptibility) Collected: 09/26/24 1422 Lab Status: Final result Specimen: Blood, Venous Updated: 10/01/24 0658 Blood Culture Methicillin Resistant Staphylococcus aureus Comment: detected by PCR Isolate saved. If future testing is required, contact the Microbiology Dictating Transcribing Machine Servicer. Gram Stain Aerobic Bottle: Gram positive cocci in clusters Susceptibility Methicillin Resistant Staphylococcus aureus VITEK 2 METHOD Clindamycin Resistant Gentamicin Susceptible [1] Linezolid Susceptible Oxacillin Resistant Trimethoprim/Sulfa Susceptible Vancomycin Susceptible [1] Gentamicin is not appropriate for monotherapy for gram-positive infections. Blood culture [[id number]] (Abnormal) Collected: 09/26/24 1845 Lab Status: Final result Specimen: Blood, Venous Updated: 10/01/24 0658 Blood Culture Methicillin Resistant Staphylococcus aureus Comment: isolated. Susceptibilities previously reported. Gram Stain Aerobic Bottle: Gram positive cocci in clusters Abscess/Wound Aspirate Culture, Aerobic & Anaerobic [[id number]] (Abnormal) Collected: 09/26/241649 Lab Status: Final result Specimen: Abscess from Groin, Left Updated: 09/30/24 1551 Narrative: The following orders were created for panel order Abscess/Wound Aspirate Culture, Aerobic & Anaerobic. Procedure Abnormality Status --------- ------ Abscess/Wound Aspirate C...[[id number]] Abnormal Final result Anaerobic Culture[[id number]] Final result Please view results for these tests on the individual orders. Anaerobic Culture [[id number]] Collected: 09/26/241649 Lab Status: Final result Specimen: Abscess from Groin, Left Updated: 09/30/24 1551 Anaerobic Culture No anaerobic organisms isolated Abscess/Wound Aspirate Culture, Aerobic & Anaerobic [[id number]] (Abnormal) Collected: 09/26/241701 Lab Status: Final result Specimen: Abscess from Knee, Left Updated: 09/30/24 1551 Narrative: The following orders were created for panel order Abscess/Wound Aspirate Culture, Aerobic & Anaerobic. Procedure Abnormality Status --------- ------ Abscess/Wound Aspirate C...[[id number]] Abnormal Final result Anaerobic Culture[[id number]] Final result Please view results for these tests on the individual orders. Anaerobic Culture [[id number]] Collected: 09/26/241701 Lab Status: Final result Specimen: Abscess from Knee, Left Updated: 09/30/24 1551 Anaerobic Culture No anaerobic organisms isolated Sonicated Tissue/Implant Culture [[id number]] (Abnormal) Collected: 09/26/24 1716 Lab Status: Final result Specimen: Vascular Graft from Leg, Left Updated: 09/30/24 1349 Sonicated Tissue/Implant Culture Methicillin Resistant Staphylococcus aureus Comment: isolated from broth culture. Susceptibilities previously reported. Abscess/Wound Aspirate Culture, Aerobic Only [[id number]] (Abnormal) (Susceptibility) Collected: 09/26/241701 Lab Status: Final result Specimen: [...] to doxycycline. Abscess/Wound Aspirate Culture, Aerobic Only [[id number]] (Abnormal) (Susceptibility) Collected: 09/26/24 165 Lab Status: [...] is considered susceptible to doxycycline. AFB culture [[id number]] Collected: 09/27/241653 Lab Status: Preliminary result Specimen: Tissue from Thigh, Left Updated: 09/29/24 1201 Acid Fast Bacilli Culture No acid fast bacilli isolated to date. Acid Fast Stain No acid fast bacilli seen Fungus culture [[id number]] Collected: 09/27/241653 Lab Status: Preliminary result Specimen: [...] 2nd toe amputation who was transferred from [facility] given concern for infected left fem-BK popliteal PTFE bypass. 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 Laboratory: Recent Labs 10/02/24 0041 10/01/2420109/29/24 2352 WBC 10.93* 10.15* 9.54* HGB 9.6* [...] aspirate- MRSA Antimicrobials: Vancomycin- Imaging/diagnostics: CT lower /20 IMPRESSION: 1. Interval explant of LEFT femoral [...] male who underwent a left lower extremity bmdaujw-rz-vxjmd-kneepopliteal artery bypass on August 01, 2024, and [...] questions or concerns. Please page ID John team (pager [phone]) with questions or concerns. Lynne Leavitt MD Fellow, Infectious Disease Pager: [phone] Epic Chat 10/02/2024 This note was created using PPI voice recognition software. Associated attestation - Amaya [...] Procedure Component Value - Date/Time Blood culture [[id number]] Collected: 09/29/242123 Lab Status: Final result Specimen: Blood, Venous Updated: 10/04/24 2301 Blood Culture No growth at 120 hours Blood culture [[id number]] Collected: 09/29/242123 Lab Status: Final result Specimen: Blood, Venous Updated: 10/04/24 2301 Blood Culture No growth at 120 hours AFB culture [[id number]] Collected: 09/26/24 170 Lab Status: Preliminary result Specimen: Abscess from Knee, Left Updated: 10/04/24 1201 Acid Fast Bacilli Culture No acid fast bacilli isolated at 1 week. Acid Fast Stain No acid fast bacilli seen Blood culture [[id number]] Collected: 09/28/24 1749 Lab Status: Final result Specimen: Blood, Venous Updated: 10/03/24 1901 Blood Culture No growth at 120 hours Blood culture [[id number]] (Abnormal) Collected: 09/27/242132 Lab Status: Final result Specimen: Blood, Venous Updated: 10/02/24 0804 Blood Culture Methicillin Resistant Staphylococcus aureus Comment: Susceptibilities previously reported. Gram Stain Aerobic Bottle: Gram positive cocci in clusters Tissue Culture, Aerobic & Anaerobic [[id number]] Collected: 09/27/241653 Lab Status: Final result Specimen: Tissue from Thigh, Left Updated: 10/01/24 155 Narrative: The following orders were created for panel order Tissue Culture, Aerobic & Anaerobic. Procedure Abnormality Status --------- ------ Tissue Culture, Aerobic ...[[id number]] Anaerobic Culture[[id number]] Final result Please view results for these tests on the individual orders. Anaerobic Culture [[id number]] Collected: 09/27/241653 Lab Status: Final result Specimen: Tissue from Thigh, Left Updated: 10/01/24 155 Anaerobic Culture No anaerobic organisms isolated Tissue Culture, Aerobic Only [[id number]] (Abnormal) (Susceptibility) Collected: 09/27/24 1654 Lab Status: [...] is considered susceptible to doxycycline. Blood culture [[id number]] (Abnormal) (Susceptibility) Collected: 09/26/24 1422 Lab Status: Final result Specimen: Blood, Venous Updated: 10/01/24 0658 Blood Culture Methicillin Resistant Staphylococcus aureus Comment: detected by PCR Isolate saved. If future testing is required, contact the Microbiology Dictating Transcribing Machine Servicer. Gram Stain Aerobic Bottle: Gram positive cocci in clusters Susceptibility Methicillin Resistant Staphylococcus aureus VITEK 2 METHOD Clindamycin >=8.0 ug/ml Resistant Gentamicin <=0.5 ug/ml Susceptible [1] Linezolid 2.0 ug/ml Susceptible Oxacillin >=4.0 ug/ml Resistant Trimethoprim/Sulfa <=10.0 ug/ml Susceptible Vancomycin 1.0 ug/ml Susceptible [1] Gentamicin is not appropriate for monotherapy for gram-positive infections. Blood culture [[id number]] (Abnormal) Collected: 09/26/24 1845 Lab Status: Final result Specimen: Blood, Venous Updated: 10/01/24 0658 Blood Culture Methicillin Resistant Staphylococcus aureus Comment: isolated. Susceptibilities previously reported. Gram Stain Aerobic Bottle: Gram positive cocci in clusters Abscess/Wound Aspirate Culture, Aerobic & Anaerobic [[id number]] (Abnormal) Collected: 09/26/24 1650 Lab Status: Final result Specimen: Abscess from Groin, Left Updated: 09/30/24 1551 Narrative: The following orders were created for panel order Abscess/Wound Aspirate Culture, Aerobic & Anaerobic. Procedure Abnormality Status --------- ------ Abscess/Wound Aspirate C...[[id number]] Abnormal Final result Anaerobic Culture[[id number]] Final result Please view results for these tests on the individual orders. Anaerobic Culture [[id number]] Collected: 09/26/24 1650 Lab Status: Final result Specimen: Abscess from Groin, Left Updated: 09/30/24 1551 Anaerobic Culture No anaerobic organisms isolated Abscess/Wound Aspirate Culture, Aerobic & Anaerobic [[id number]] (Abnormal) Collected: 09/26/24 1702 Lab Status: Final result Specimen: Abscess from Knee, Left Updated: 09/30/24 1551 Narrative: The following orders were created for panel order Abscess/Wound Aspirate Culture, Aerobic & Anaerobic. Procedure Abnormality Status --------- ------ Abscess/Wound Aspirate C...[[id number]] Abnormal Final result Anaerobic Culture[[id number]] Final result Please view results for these tests on the individual orders. Anaerobic Culture [[id number]] Collected: 09/26/24 1702 Lab Status: Final result Specimen: Abscess from Knee, Left Updated: 09/30/24 1551 Anaerobic Culture No anaerobic organisms isolated Sonicated Tissue/Implant Culture [[id number]] (Abnormal) Collected: 09/26/24 1716 Lab Status: Final result Specimen: Vascular Graft from Leg, Left Updated: 09/30/24 1349 Sonicated Tissue/Implant Culture Methicillin Resistant Staphylococcus aureus Comment: isolated from broth culture. Susceptibilities previously reported. Abscess/Wound Aspirate Culture, Aerobic Only [[id number]] (Abnormal) (Susceptibility) Collected: 09/26/24 1702 Lab Status: [...] to doxycycline. Abscess/Wound Aspirate Culture, Aerobic Only [[id number]] (Abnormal) (Susceptibility) Collected: 09/26/24 165 Lab Status: [...] is considered susceptible to doxycycline. AFB culture [[id number]] Collected: 09/27/241653 Lab Status: Preliminary result Specimen: Tissue from Thigh, Left Updated: 09/29/24 1201 Acid Fast Bacilli Culture No acid fast bacilli isolated to date. Acid Fast Stain No acid fast bacilli seen Fungus culture [[id number]] Collected: 09/27/241653 Lab Status: Preliminary result Specimen: Tissue from Thigh, Left Updated: 09/28/24 0748 Fungus Culture No fungus isolated to date EKG/echo: reviewed Imaging: [email or web address] External records in - [facility]: reviewed Category 3: The ID consult team [...] Diet NPO Monitoring: Q4 Fawn Cunningham APRN [facility] [place]ocrin[place] Diabetes Management Pager [phone] Weekends please page [phone] 35 minutes were spent over the course [...] 2nd toe amputation who was transferred from [facility] given concern for infected left fem-BK [...] smoking 1 week ago. He presented [place] [facility] [place] and went to the OR [...] TID WC acetaminophen 975 mg Oral Q6H [facility] atorvastatin 80 mg Oral QPM aspirin EC 81 mg Oral Daily methylphenidate 20 mg Oral TID pantoprazole EC 40 mg Oral Daily senna-docusate 2 tablet Oral BID venlafaxine XR 225 mg Oral Daily heparin (porcine) 5,000 Units Subcutaneous Q8H [facility] lidocaine 1 patch Transdermal Q24H Operations this [...] Procedure Component Value - Date/Time Blood culture [[id number]] Collected: 09/29/242123 Lab Status: Preliminary result Specimen: Blood, Venous Updated: 10/03/24 230 Blood Culture No growth at 96 hours Blood culture [[id number]] Collected: 09/29/242123 Lab Status: Preliminary result Specimen: Blood, Venous Updated: 10/03/24 2301 Blood Culture No growth at 96 hours Blood culture [[id number]] Collected: 09/28/24 1749 Lab Status: Final result Specimen: Blood, Venous Updated: 10/03/24 1901 Blood Culture No growth at 120 hours Blood culture [[id number]] (Abnormal) Collected: 09/27/242132 Lab Status: Final result Specimen: Blood, Venous Updated: 10/02/24 0804 Blood Culture Methicillin Resistant Staphylococcus aureus Comment: Susceptibilities previously reported. Gram Stain Aerobic Bottle: Gram positive cocci in clusters Tissue Culture, Aerobic & Anaerobic [[id number]] Collected: 09/27/24 1654 Lab Status: Final result Specimen: Tissue from Thigh, Left Updated: 10/01/24 1554 Narrative: The following orders were created for panel order Tissue Culture, Aerobic & Anaerobic. Procedure Abnormality Status --------- ------ Tissue Culture, Aerobic ...[[id number]] Anaerobic Culture[[id number]] Final result Please view results for these tests on the individual orders. Anaerobic Culture [[id number]] Collected: 09/27/24 1654 Lab Status: Final result Specimen: Tissue from Thigh, Left Updated: 10/01/24 1554 Anaerobic Culture No anaerobic organisms isolated Tissue Culture, Aerobic Only [[id number]] (Abnormal) (Susceptibility) Collected: 09/27/24 165 Lab Status: [...] is considered susceptible to doxycycline. Blood culture [[id number]] (Abnormal) (Susceptibility) Collected: 09/26/24 1422 Lab Status: Final result Specimen: Blood, Venous Updated: 10/01/24 0658 Blood Culture Methicillin Resistant Staphylococcus aureus Comment: detected by PCR Isolate saved. If future testing is required, contact the Microbiology Dictating Transcribing Machine Servicer. Gram Stain Aerobic Bottle: Gram positive cocci in clusters Susceptibility Methicillin Resistant Staphylococcus aureus VITEK 2 METHOD Clindamycin Resistant Gentamicin Susceptible [1] Linezolid Susceptible Oxacillin Resistant Trimethoprim/Sulfa Susceptible Vancomycin Susceptible [1] Gentamicin is not appropriate for monotherapy for gram-positive infections. Blood culture [[id number]] (Abnormal) Collected: 09/26/24 1845 Lab Status: Final result Specimen: Blood, Venous Updated: 10/01/24 0658 Blood Culture Methicillin Resistant Staphylococcus aureus Comment: isolated. Susceptibilities previously reported. Gram Stain Aerobic Bottle: Gram positive cocci in clusters Abscess/Wound Aspirate Culture, Aerobic & Anaerobic [[id number]] (Abnormal) Collected: 09/26/24 1650 Lab Status: Final result Specimen: Abscess from Groin, Left Updated: 09/30/24 1551 Narrative: The following orders were created for panel order Abscess/Wound Aspirate Culture, Aerobic & Anaerobic. Procedure Abnormality Status --------- ------ Abscess/Wound Aspirate C...[[id number]] Abnormal Final result Anaerobic Culture[[id number]] Final result Please view results for these tests on the individual orders. Anaerobic Culture [[id number]] Collected: 09/26/24 1650 Lab Status: Final result Specimen: Abscess from Groin, Left Updated: 09/30/24 1551 Anaerobic Culture No anaerobic organisms isolated Abscess/Wound Aspirate Culture, Aerobic & Anaerobic [[id number]] (Abnormal) Collected: 09/26/24 1702 Lab Status: Final result Specimen: Abscess from Knee, Left Updated: 09/30/24 1551 Narrative: The following orders were created for panel order Abscess/Wound Aspirate Culture, Aerobic & Anaerobic. Procedure Abnormality Status --------- ------ Abscess/Wound Aspirate C...[[id number]] Abnormal Final result Anaerobic Culture[[id number]] Final result Please view results for these tests on the individual orders. Anaerobic Culture [[id number]] Collected: 09/26/24 170 Lab Status: Final result Specimen: Abscess from Knee, Left Updated: 09/30/24 1551 Anaerobic Culture No anaerobic organisms isolated Sonicated Tissue/Implant Culture [[id number]] (Abnormal) Collected: 09/26/24 1716 Lab Status: Final result Specimen: Vascular Graft from Leg, Left Updated: 09/30/24 1349 Sonicated Tissue/Implant Culture Methicillin Resistant Staphylococcus aureus Comment: isolated from broth culture. Susceptibilities previously reported. Abscess/Wound Aspirate Culture, Aerobic Only [[id number]] (Abnormal) (Susceptibility) Collected: 09/26/24 1702 Lab Status: [...] to doxycycline. Abscess/Wound Aspirate Culture, Aerobic Only [[id number]] (Abnormal) (Susceptibility) Collected: 09/26/24 1650 Lab Status: [...] is considered susceptible to doxycycline. AFB culture [[id number]] Collected: 09/27/24 165 Lab Status: Preliminary result Specimen: Tissue from Thigh, Left Updated: 09/29/24 1201 Acid Fast Bacilli Culture No acid fast bacilli isolated to date. Acid Fast Stain No acid fast bacilli seen AFB culture [[id number]] Collected: 09/26/24 1702 Lab Status: Preliminary result Specimen: Abscess from Knee, Left Updated: 09/29/24 1201 Acid Fast Bacilli Culture No acid fast bacilli isolated to date. Acid Fast Stain No acid fast bacilli seen Fungus culture [[id number]] Collected: 09/27/24 1654 Lab Status: Preliminary result Specimen: Tissue from Thigh, Left Updated: 09/28/24 0748 Fungus Culture No fungus isolated to date MRSA PCR Screen [[id number]] (Abnormal) Collected: 09/27/24 0751 Lab Status: Final result Specimen: Swab from Nares Updated: 09/27/24 1156 MRSA PCR Detected Narrative: This test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 result Specimen: Vascular Graft from Leg, Left Updated: 09/30/24 1349 Sonicated Tissue/Implant Culture Methicillin Resistant Staphylococcus aureus Comment: isolated from broth culture. Susceptibilities previously reported. Abscess/Wound Aspirate Culture, Aerobic Only [[id number]] (Abnormal) (Susceptibility) Collected: 09/26/24 1702 Lab Status: [...] to doxycycline. Abscess/Wound Aspirate Culture, Aerobic Only [[id number]] (Abnormal) (Susceptibility) Collected: 09/26/24 1650 Lab Status: [...] is considered susceptible to doxycycline. Blood culture [[id number]] (Abnormal) Collected: 09/27/24 2133 Lab Status: Preliminary result Specimen: Blood, Venous Updated: 09/30/24 0718 Blood Culture Methicillin Resistant Staphylococcus aureus Comment: Susceptibilities previously reported. Gram Stain Aerobic Bottle: Gram positive cocci in clusters AFB culture [[id number]] Collected: 09/27/24 1654 Lab Status: Preliminary result Specimen: Tissue from Thigh, Left Updated: 09/29/24 1201 Acid Fast Bacilli Culture No acid fast bacilli isolated to date. Acid Fast Stain No acid fast bacilli seen AFB culture [[id number]] Collected: 09/26/24 1702 Lab Status: Preliminary result Specimen: Abscess from Knee, Left Updated: 09/29/24 1201 Acid Fast Bacilli Culture No acid fast bacilli isolated to date. Acid Fast Stain No acid fast bacilli seen Tissue Culture, Aerobic Only [[id number]] (Abnormal) (Susceptibility) Collected: 09/27/241653 Lab Status: Preliminary [...] is considered susceptible to doxycycline. Anaerobic Culture [[id number]] Collected: 09/27/241653 Lab Status: Preliminary result Specimen: Tissue from Thigh, Left Updated: 09/28/24 1355 Anaerobic Culture No anaerobic organisms isolated to date Fungus culture [[id number]] Collected: 09/27/241653 Lab Status: Preliminary result Specimen: Tissue from Thigh, Left Updated: 09/28/24 0748 Fungus Culture No fungus isolated to date MRSA PCR Screen [[id number]] (Abnormal) Collected: 09/27/24 0751 Lab Status: Final result Specimen: Swab from Nares Updated: 09/27/24 1156 MRSA PCR Detected Narrative: This test was performed using the Xpert MRSA NxG test kit and is run on the [employer] GeneXpert Dx System. This test is cleared by the U.S. Food and Drug Administration for clinical use and its performance characteristics have been verified by the Clinical Genomics and [facility] Technology Laboratory at [facility]. Fungus culture [[id number]] Collected: 09/26/24 165 Lab Status: Preliminary result Specimen: Abscess from Groin, Left Updated: 09/27/24 0727 Fungus Culture No fungus isolated to date Fungus culture [[id number]] Collected: 09/26/24 1702 Lab Status: Preliminary result [...] 2nd toe amputation who was transferred from [facility] given concern for infected left fem-BK popliteal PTFE bypass. He is now s/p an explantof an infected left femoral-below knee popliteal artery bypass graft (09/26), I/D groin abscess (), L GSV harvest, vein patch angioplasty, L AMPOULE INSPECTOR and BK pop w/ sartorius flap L fem, I/D, 09/29 L sartorius flap revision, vac change. 10/01/24: Tolerated gentle irrigation with saline at BSD today with clear to mildly serosang drainage - no purulence or malodor noted and patient tolerated well. Will plan for NPO at [facility] for return [facility] tomorrow. Hypertensive overnight, home [...] - ISS - diet today; NPO at [facility] for OR Tuesday 10/02 Anticoagulation: SQH TID Antiplatelet: ASA 81 María Carranza APRN 10/01/2024 Pager: [phone] * Karolyn Hudson MD - 09/30/2024 11:21 AM EST Images from the original note were not included. Vascular Surgery Progress Note Patient ID Geovanna Dixon Jr. is a 49 y.o. 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 He [place] [facility] [place] and went to the OR [...] Procedure Component Value - Date/Time Blood culture [[id number]] (Abnormal) Collected: 09/27/24 2133 Lab Status: Preliminary result Specimen: Blood, Venous Updated: 09/30/24 0718 Blood Culture Methicillin Resistant Staphylococcus aureus Comment: Susceptibilities previously reported. Gram Stain Aerobic Bottle: Gram positive cocci in clusters Blood culture [[id number]] Collected: 09/28/24 1749 Lab Status: Preliminary result Specimen: Blood, Venous Updated: 09/29/24 1901 Blood Culture No Growth at 18-24 hrs. AFB culture [[id number]] Collected: 09/27/24 1654 Lab Status: Preliminary result Specimen: Tissue from Thigh, Left Updated: 09/29/24 1201 Acid Fast Bacilli Culture No acid fast bacilli isolated to date. Acid Fast Stain No acid fast bacilli seen AFB culture [[id number]] Collected: 09/26/24 1702 Lab Status: Preliminary result Specimen: Abscess from Knee, Left Updated: 09/29/24 1201 Acid Fast Bacilli Culture No acid fast bacilli isolated to date. Acid Fast Stain No acid fast bacilli seen Sonicated Tissue/Implant Culture [[id number]] (Abnormal) Collected: 09/26/24 1716 Lab Status: Preliminary result Specimen: Vascular Graft from Leg, Left Updated: 09/29/24 1132 Sonicated Tissue/Implant Culture Methicillin Resistant Staphylococcus aureus Comment: isolated from broth culture. Susceptibilities previously reported. Tissue Culture, Aerobic Only [[id number]] (Abnormal) (Susceptibility) Collected: 09/27/24 1654 Lab Status: [...] is considered susceptible to doxycycline. Blood culture [[id number]] (Abnormal) Collected: 09/26/24 1845 Lab Status: Preliminary result Specimen: Blood, Venous Updated: 09/29/24 0719 Blood Culture Methicillin Resistant Staphylococcus aureus Comment: isolated. Susceptibilities previously reported. Gram Stain Aerobic Bottle: Gram positive cocci in clusters Blood culture [[id number]] (Abnormal) (Susceptibility) Collected: 09/26/24 1422 Lab Status: Preliminary result Specimen: Blood, Venous Updated: 09/29/24 0717 Blood Culture Methicillin Resistant Staphylococcus aureus Comment: detected by PCR Isolate saved. If future testing is required, contact the Microbiology Dictating Transcribing Machine Servicer. Gram Stain Aerobic Bottle: Gram positive cocci in clusters Susceptibility Methicillin Resistant Staphylococcus aureus VITEK 2 METHOD Clindamycin Resistant Gentamicin Susceptible [1] Linezolid Susceptible Oxacillin Resistant Trimethoprim/Sulfa Susceptible Vancomycin Susceptible [1] Gentamicin is not appropriate for monotherapy for gram-positive infections. Anaerobic Culture [[id number]] Collected: 09/27/24 1654 Lab Status: Preliminary result Specimen: Tissue from Thigh, Left Updated: 09/28/24 1355 Anaerobic Culture No anaerobic organisms isolated to date Abscess/Wound Aspirate Culture, Aerobic Only [[id number]] (Abnormal) (Susceptibility) Collected: 09/26/24 1702 Lab Status: [...] to doxycycline. Abscess/Wound Aspirate Culture, Aerobic Only [[id number]] (Abnormal) (Susceptibility) Collected: 09/26/241649 Lab Status: Preliminary [...] is considered susceptible to doxycycline. Fungus culture [[id number]] Collected: 09/27/241653 Lab Status: Preliminary result Specimen: Tissue from Thigh, Left Updated: 09/28/24 0748 Fungus Culture No fungus isolated to date MRSA PCR Screen [[id number]] (Abnormal) Collected: 09/27/24 0751 Lab Status: Final result Specimen: Swab from Nares Updated: 09/27/24 1156 MRSA PCR Detected Narrative: This test was performed using the Xpert MRSA NxG test kit and is run on the [employer] GeneXpert Dx System. This test is cleared by the U.S. Food and Drug Administration for clinical use and its performance characteristics have been verified by the Clinical Genomics and [facility] Technology Laboratory at [facility]. Anaerobic Culture [[id number]] Collected: 09/26/241649 Lab Status: Preliminary result Specimen: Abscess from Groin, Left Updated: 09/27/24 1142 Anaerobic Culture No anaerobic organisms isolated to date Anaerobic Culture [[id number]] Collected: 09/26/24 1702 Lab Status: Preliminary result Specimen: Abscess from Knee, Left Updated: 09/27/24 1142 Anaerobic Culture No anaerobic organisms isolated to date Fungus culture [[id number]] Collected: 09/26/241649 Lab Status: Preliminary result Specimen: Abscess from Groin, Left Updated: 09/27/24726 Fungus Culture No fungus isolated to date Fungus culture [[id number]] Collected: 09/26/24 1702 Lab Status: Preliminary result Specimen: Abscess from Knee, Left Updated: 09/27/24726 Fungus Culture No fungus isolated to date New Studies Results for orders placed or performed during the hospital encounter of 09/26/24 Request For 2nd Read CT Lower Extremity (Exam End: 09/26/2024 1:50 PM) Result Value WORKSTATION ID [id number] Impression 1. There is a left femoral [...] care coordinator that requested your imaging first. Electronically signed by: Lisette Bruno MD, [facility] ([phone]), at 09/26/2024 3:[address] Lower Extremity w Contrast Left (Exam End: 09/27/2024 9:16 AM) Result Value WORKSTATION ID [id number] Impression IMPRESSION: 1. Interval explant of LEFT [...] care coordinator that requested your imaging first. 09/28 ABIs [...] 2nd toe amputation who was transferred from [facility] given concern for infected left fem-BK [...] 2352 09/28/24 2351 09/28/24 1045 09/28/24 0455 09/27/242357 NA -- 138 137 -- -- 131* K 3.9 3.4* 3.2* 4.6 2.9* 3.2* CL -- 103 105 -- -- 95* CO2 -- * -- -- 23 BUN -- 9* 6* -- -- 5* CREATININE -- 0.48* 0.52* -- -- 0.48* GLUCOSE -- 133 204* -- -- 246* CALCIUM -- 8.1* 6.7* -- -- 8.1* MAGNESIUM -- 0.85 0.72 -- -- 0.77 Recent Labs 09/28/24 1516 PHART 7.42 PO2ART 103 [id number] 39 LACTATEART 1.1 BEART 0.2 Is this [...] - 09/29/2024 8:08 PM EST Geovanna Dixon JrFlorencio is a 49 y.o. [...] included. .Follow Up Diabetes Consult Patient Interview Geovanan still in ICU and going to OR [...] inpatient unit including nursing and primary team. Angel Smith MD - 09/29/2024 12:34 PM EST Critical [...] 1643 PHART 7.42 7.38 PO2ART 103 96 [id number] 41 LACTATEART 1.1 1.7 BEART 0.2 [...] oz). Wt Readings from Last 5 Encounters: 11/22/24 104.1 kg (229 lb 8 oz) 09/18/24 [...] Thank you, Renea Nunez, MS, RD, LD, [facility] Clinical Nutrition * Mariya Shi RN [...] Diet CC Monitoring: Q4 Fawn Cunningham APRN [facility] Endocrinology Diabetes Management Pager [phone] Weekends please page [phone] 35 minutes were spent over the course [...] Labs 09/26/24 1643 PHART 7.38 PO2ART 96 [id number] 41 LACTATEART 1.7 BEART -1.4 Is this [...] 2nd toe amputation who was transferred from [facility] given concern for infected left fem-BK [...] smoking 1 week ago. He presented to [facility] [place] and went to the OR [...] Q8H heparin (porcine) 5,000 Units Subcutaneous Q8H [facility] lidocaine 1 patch Transdermal Q24H 24 hour [...] Procedure Component Value - Date/Time Fungus culture [[id number]] Collected: 09/27/24 1654 Lab Status: Preliminary result Specimen: Tissue from Thigh, Left Updated: 09/28/24 0748 Fungus Culture No fungus isolated to date Blood culture [[id number]] (Abnormal) Collected: 09/26/24 1845 Lab Status: Preliminary result Specimen: Blood, Venous Updated: 09/28/24 0711 Blood Culture Methicillin Resistant Staphylococcus aureus Comment: isolated. Susceptibility testing in progress. Gram Stain Aerobic Bottle: Gram positive cocci in clusters AFB culture [[id number]] Collected: 09/26/24 1702 Lab Status: Preliminary result Specimen: Abscess from Knee, Left Updated: 09/27/24 2335 Acid Fast Stain No acid fast bacilli seen Tissue Culture, Aerobic Only [[id number]] Collected: 09/27/24 1654 Lab Status: Preliminary result Specimen: Tissue from Thigh, Left Updated: 09/27/24 1810 Gram Stain Few Neutrophils seen No microorganisms seen Abscess/Wound Aspirate Culture, Aerobic Only [[id number]] (Abnormal) Collected: 09/26/24 170 Lab Status: Preliminary result Specimen: Abscess from Knee, Left Updated: 09/27/24 1520 Abscess/Wound Aspirate Culture Many Staphylococcus aureus Gram Stain Many neutrophils Many Gram positive cocci Abscess/Wound Aspirate Culture, Aerobic Only [[id number]] (Abnormal) Collected: 09/26/24 165 Lab Status: Preliminary result Specimen: Abscess from Groin, Left Updated: 09/27/24 1519 Abscess/Wound Aspirate Culture Many Staphylococcus aureus Gram Stain Many neutrophils Many Gram positive cocci Blood culture [[id number]] (Abnormal) Collected: 09/26/24 1422 Lab Status: Preliminary result Specimen: Blood, Venous Updated: 09/27/24 1320 Blood Culture Methicillin Resistant Staphylococcus aureus Comment: detected by PCR Gram Stain Aerobic Bottle: Gram positive cocci in clusters MRSA PCR Screen [[id number]] (Abnormal) Collected: 09/27/24 0751 Lab Status: Final result Specimen: Swab from Nares Updated: 09/27/24 1156 MRSA PCR Detected Narrative: This test was performed using the Xpert MRSA NxG test kit and is run on the [employer] GeneXXL Video Dx System. This test is cleared by the U.S. Food and Drug Administration for clinical use and its performance characteristics have been verified by the Clinical Genomics and [facility] Technology Laboratory at [facility]. Anaerobic Culture [[id number]] Collected: 09/26/24 1650 Lab Status: Preliminary result Specimen: Abscess from Groin, Left Updated: 09/27/24 1142 Anaerobic Culture No anaerobic organisms isolated to date Anaerobic Culture [[id number]] Collected: 09/26/24 1702 Lab Status: Preliminary result Specimen: Abscess from Knee, Left Updated: 09/27/24 1142 Anaerobic Culture No anaerobic organisms isolated to date Fungus culture [[id number]] Collected: 09/26/24 1650 Lab Status: Preliminary result Specimen: Abscess from Groin, Left Updated: 09/27/24726 Fungus Culture No fungus isolated to date Fungus culture [[id number]] Collected: 09/26/24 1702 Lab Status: Preliminary result Specimen: Abscess from Knee, Left Updated: 09/27/24726 Fungus Culture No fungus isolated to date New Studies Results for orders placed or performed during the hospital encounter of 09/26/24 Request For 2nd Read CT Lower Extremity (Exam End: 09/26/2024 1:50 PM) Result Value WORKSTATION ID [id number] Impression 1. There is a left femoral [...] care coordinator that requested your imaging first. Electronically signed by: Lisette Bruno MD, [facility] ([phone]), at 09/26/2024 3:[address] Lower Extremity w Contrast Left (Exam End: 09/27/2024 9:16 AM) Result Value WORKSTATION ID [id number] Impression IMPRESSION: 1. Interval explant of LEFT [...] 2nd toe amputation who was transferred from [facility] given concern for infected left fem-BK [...] Padma Ramirez MD Vascular Surgery 09/27/24 * NaveenKita dobson - 09/27/2024 3:58 PM EST Accountant Property Encounter Note Patient Name: Geovanna Dixon Jr. : [id number] MR#: [id number] Admit Date: 09/26/2024 2:08 PM Hospital Day 1 day Narrative: [employer] initiated visit with patient during rounds on the unit. Patient indicated that he was not orthodoxy. He reported that he was in less [...] Time in Direct Care: 5 minutes Kita Noyola Naveen 09/27/2024 * Angel Gonsalez MD - 09/27/2024 [...] Labs 09/26/24 1643 PHART 7.38 PO2ART 96 [id number] 41 LACTATEART 1.7 BEART -1.4 Is this [...] 2nd toe amputation who was transferred from [facility] given concern for infected left fem-BK [...] smoking 1 week ago. He presented to [facility] [place] 09[place]26 and went to the OR [...] 2nd toe amputation who was transferred from [facility] given concern for infected left fem-BK popliteal PTFE bypass. He is now s/p an explantof an infected left femoral-below knee popliteal artery bypass graft. Significant purulence under pr essure was seen intraoperatively, surrounding the entire bypass at proximal and distal anastomoses as well as the tunnel. There are retained grafts left at proximal and distal anastomoses, and a [place] drain placed from left groin to left [...] graft associated infection. The patient presented to [facility] ED on 09/26 for evaluation of increasing [...] remained hemodynamically stable during his time at [facility] and was transported by ground to [facility] for vascular surgery consultation. Patient was admitted [...] 3.51) performed by Thony Garcia MD at [facility] MAIN OR PRO BYPASS GRAFT OTHR, FEM-TIBIAL Left 08/01/2024 @BYPASS GRAFT, FEM-ANT TIBIAL, -POST TIBIAL, -PERONEAL, -DP W\ SYNTHETIC CONDUIT (WRVU 23.66) performed by Lisette Maldonado MD at [facility] MAIN OR PRO CABG, ARTERY-VEIN, SINGLE 01/04/2012 @CABG, VENOUS & ARTERIAL GRAFT;SINGLE VEIN GRAFT performed by INNA TOVAR at [facility] MAIN OR PRO ENDOSCOPY W/VIDEO-ASST VEIN HARVEST, CABG 01/04/2012 ENDOSCOPIC HARVEST VEIN(S) FOR CABG performed by INNA TOVAR at [facility] MAIN OR VS ARTERIOGRAM LOWER EXTREMITY VASCULAR SURGERY 07/20/2024 VS Arteriogram Lower Extremity Vascular Surgery 07/20/2024 Anabel Finney MD [facility] INTERVENTIONL RAD Prior To Admission Medications: Medications [...] 3 times daily. Use as instructed Indications: [id number] each 1 Past Week FreeStyle Lancets 28 [...] 200 - 393 mg/dL Type and screen ([facility]/JACKELYN/BABITA) Result Value Ref Range ABORH Type A POSITIVE PATIENT HISTORY Found Expires at 2359 on: 09/29/2024 ANTIBODY SCREEN AUTOMATED Negative T&S only valid at [facility] CBC (with Diff) Result Value Ref [...] 09/26/2024 1:50 PM) Result Value WORKSTATION ID [id number] Impression 1. There is a left femoral [...] care coordinator that requested your imaging first. Electronically signed by: Lisette Bruno MD, [facility] ([phone]), at 09/26/2024 3:01 PM Assessment/Plan: Geovanna Dixon [...] to the planned procedure. Hand Hygiene: The traveling plant operator did perform hand hygiene prior to line insertion. Catheter type: PICC Lot number: [id number] Procedure Technique: Skin was prepped with chlorhexidine. [...] to the planned procedure. Hand Hygiene: The traveling plant operator did perform hand hygiene prior to line insertion. Catheter type: PICC Lot number: [id number] Procedure Technique: Skin was prepped with chlorhexidine. [...] tomorrow afternoon. Home Vac: I have called [facility] and they they have now delivered the home ActiVac serial # [id number]. Pt reviewed the [facility] Act[employer]Vac Proof of Delivery/Assignment of Benefits (POD/AOB)form and signed it; she has copy of this and the [facility] Patient Copy letter along with the supplies, I will fax copy of the POD/AOB to [facility]. Needs for Transition of Care: Plan for discharge is: Home w/ Services Outpatient Agency/Support Group Needs: Homecare agency Outpatient IV Medications - IV Access: Access Ordered Location: Home, Referred to [facility] Coordination, Referred to [facility] Home Health Services: Occupational Therapy, Physical Therapy, Registered Nurse Agency Referrals & Follow-up Care: Contact information for follow-up Home Health & Hospice, [place] [address] [place] [address] Transportation: family or friend will provide Functional status prior to admission: Independent Home Environment: Others in the home: sibling(s), other (see comments) (lives with his sister delmy and brother in law). Current Living Arrangements: home/apartment/condo. Accessibility Concerns: . Current Functional Ability: Assistive Person and Equipment DME used at home: none Other DME Needs: Wound Vac Provider: [facility] Patient is insured through: Primary Insurance: [employer] MANAGED MEDICARE Payor: [employer]GED MEDICARE / [facility] PPO / Product Type: [...] Pain Flowsheets Taken 10/09/20242022 Pain Management Interventions: [id number] dosing utilized care clustered diversional activity provided [...] Monitor and Manage Urinary Retention Flowsheets (Taken 10/09/2024 0900) Urinary Elimination Promotion: toileting offered Problem: Tissue Perfusion Altered (Revascularization) Goal: Effective Tissue Perfusion Outcome: Ongoing (Interventions Implemented as Appropriate) Intervention: Optimize Tissue Perfusion Flowsheets (Taken 10/09/2024 0900) Body Position: position changed independently * Plan of Care - Jorge Torres RN - 10/09/2024 1:55 PM EST Images from the [place] [address] [facility] Vascular Access Service Peripherally Inserted Central Catheter (PICC) Teaching Sheet Peripherally inserted central catheters (rdpo-go-dyrn) (PICC) are used when you need IV [...] midline catheter? PICC lines are used for predatory animal exterminator treatments. PICC lines may be used for [...] can be set up via the nurse Instructor Programmable Controllers to help you. What are possible complications [...] Efficacy, Safety, Use, and Administration of [employer], [employer] 2005 * Care Management - Cristina [...] Access: Access Ordered Location: Home, Referred to [facility] Coordination Home Health Services: Occupational Therapy, Physical Therapy, Registered Nurse- will remove PT, OT Agency Referrals: [facility] and [facility] for IV abx. [facility] can [...] 9:00 AM EST OFFICE OF CARE MANAGEMENT Instructor Programmable Controllers Follow-up Note Cristina Turner RN reviewed record [...] medically ready. Current Referral in place: VNA: [facility] Wound vac ordered in [employer] for home wound vac and order emailed to: María for signature. Instructor Programmable Controllers to follow with team and family to [...] where referrals are placed. Request referral to [place], [place] for IV abx or . Expected date of discharge: 10/11. Patient will require teaching. Referral routed to the Auto Painter Helper for matching with agency/vendor and to provide [...] care clustered diversional activity provided position adjusted [id number] dosing utilized pain management plan reviewed with patient/caregiver pillow support provided Problem: Postoperative Nausea and Vomiting (Revascularization) Goal: Nausea and Vomiting Relief Outcome: Ongoing (Interventions Implemented as Appropriate) Intervention: Prevent or Manage Nausea and Vomiting Flowsheets (Taken 10/08/2024 0832) Nausea/Vomiting Interventions: nausea triggers minimized Problem: Postoperative [...] have. Alternately, during off-hours you may call [phone] to contact a pharmacist. * Plan of Care - Jordyn Navas RN - 10/07/2024 7:21 PM EST OUTCOME EVALUATION NOTE: OUTCOME SUMMARY: [facility], Meds/Assessments as charted, Frequent [...] PM EST PICC line placed today for predatory animal exterminator ABX. Neurovascular checks unchanged. Good oral intake [...] from the [place] [address] [facility] Vascular Access Service Peripherally Inserted Central Catheter (PICC) Teaching Sheet Peripherally inserted central catheters (yorb-ye-mdhe) (PICC) are used when you need IV [...] midline catheter? PICC lines are used for mcc treatments. PICC lines may be used for [...] can be set up via the nurse Instructor Programmable Controllers to help you. What are possible complications [...] Vascular Access Device Selection, Insertion, and Management, InGaugeIt Access Systems 08/12. A Review of the Efficacy, Safety, Use, and Administration of Cathflo, [employer] 2005 * Care Management - Vibha [...] through: Primary Insurance: [employer] MANAGED MEDICARE Payor: [employer] MEDICARE / Plan: Imp[employer] MANAGED MEDICARE PPO / Product Type: *No [...] of Discharge: 10/10/2024 Vibha Wahl RN-BSN-CM Pager: [phone] * Consult Note - Stormy Muller [facility] - 10/06/2024 9:19 AM EST [facility] Pharmacokinetics Note Drug: Vancomycin Pharmacokinetic target: [...] Analysis of the most recent level(s) using [employer] gives the following patient-specific pharmacokinetic parameters: CL: [...] in a steady-state trough of 14.6 mg/L mhdDIH14 of 508 mg/L.hr. Recommendations: - SCr has [...] Meeks MD - 10/04/2024 5:01 PM EST [facility] [place] Patient Name: Geovanna Dixon Jr. : [id number] MR#: [id number] Case Date: 10/04/2024 Surgeon: Surgeons and Role: * Marko Dickson MD - Primary * Cristino Meeks MD - Resident - Assisting Preoperative diagnosis: Status post explant of infected left AMPOULE INSPECTOR-BK pop bypass graft Postoperative diagnosis: Status post explant of infected left AMPOULE INSPECTOR-BK pop bypass graft Procedure(s) (LRB): DEBRIDEMENT [...] 2nd toe amputation who was transferred from [facility] given concern for infected left fem-BK popliteal PTFE bypass. He is now s/p an explant of an infected left femoral-below knee popliteal artery bypass graft on 09/26 followed by I/D posterior thigh abscess on 09/27 then left GSV harvest, total explant of remaining PTFE then vein patch angioplasty of the left AMPOULE INSPECTOR and BK popliteal artery on 09/28 [...] Note Patient Name: Geovanna Dixon Jr. : [id number] MR#: [id number] Case Date: 10/04/2024 Surgeon: Surgeons and Role: * Marko Dickson MD - Primary * Cristino Meeks MD - Resident - Assisting Preoperative diagnosis: Status post explant of infected left AMPOULE INSPECTOR-BK pop bypass graft Postoperative diagnosis: Status post explant of infected left AMPOULE INSPECTOR-BK pop bypass graft Procedure(s) (LRB): DEBRIDEMENT [...] No Patient is insured through: Primary Insurance: [employer] MEDICARE Payor: [employer] MEDICARE / Plan: [employer] MANAGED MEDICARE PPO / Product Type: *No [...] BIT to reengage please page BIT @ [phone] * Consult Note - Vangie Chandra [facility] - 10/04/2024 10:42 AM EST [facility] Pharmacokinetics Note Drug: Vancomycin Pharmacokinetic target: AUC24 (range) 400-600 mg/L.hr Current regimen: 1500 mg IV every 8 hours Geovanna Dixon is a(n) 49 years old male receiving Vancomycin 1500 mg IV every 8 hours for graft infection Recent measured serum creatinine values: 10/04/2024 00:08 0.56 mg/dL 10/03/2024 00:27 0.51 mg/dL 10/02/2024 00:41 0.49 mg/dL Assessment: Analysis of the most recent level(s) using [employer] gives the following patient-specific pharmacokinetic parameters: CL: [...] * Plan of Care - Cathryn Hankins, DAVID - 10/04/2024 6:49 AM EST OUTCOME EVALUATION [...] Implemented as Appropriate) 10/03/2024 0651 by Cathryn Hankins RN Outcome: Ongoing (Interventions [...] (Interventions Implemented as Appropriate) 10/03/2024650 by Cathryn Haknins RN Outcome: Ongoing (Interventions Implemented as Appropriate) [...] L 2nd toe amputationwho was transferred from [facility] given concern for infected left fem-BK popliteal PTFE bypass. He is now s/p an explant of an infected left femoral-below knee popliteal artery bypass graft (09/26), I/D groin abscess (09/27), L GSV harvest, vein patch angioplasty, L AMPOULE INSPECTOR and BK pop w/ sartorius flap L fem, I/D, 09/29 L sartorius flap revision, vac change. 10/03/24 NPO at [facility] for OR wound exploration. Wound vac off [...] 3.51) performed by Thony Garcia MD at [facility] OR PRO BYPASS GRAFT OTHR, FEM-TIBIAL Left 08/01/2024 @BYPASS GRAFT, FEM-ANT TIBIAL, -POST TIBIAL, -PERONEAL, -DP W\ SYNTHETIC CONDUIT (WRVU 23.66) performed by Lisette Maldonado MD at [facility] OR PRO CABG, ARTERY-VEIN, SINGLE 01/04/2012 @CABG, VENOUS & ARTERIAL GRAFT;SINGLE VEIN GRAFT performed by INNA TOVAR at [facility] OR PRO DEBRIDEMENT MUSCLE AND FASCIA 20 SQ CM/< Left 09/29/2024 DEBRIDEMENT SKIN, SUBCU, MUSCLE, LOWER EXTREMITY (WRVU 2.7) performed by Anabel Finney MD at [facility] PRO DEBRIDEMENT MUSCLE AND FASCIA 20 SQ CM/< Left 10/02/2024 DEBRIDEMENT SKIN, SUBCU, MUSCLE, LOWER EXTREMITY (WRVU 2.7) performed by Hermila Mccormick MDat [facility] PRO DEBRIDEMENT SUBCUTANEOUS TISSUE 20 SQCM/< Left 09/27/2024 DEBRIDEMENT SKIN AND SUBCU, LOWER EXTREMITY (WRVU 1.01) performed by Hayley Torres MD at [facility] OR PRO DRAIN LOWER LEG DEEP ABSC/HEMATOMA Left 09/26/2024 INCISION & DRAINAGE, LEG OR ANKLE, DEEP ABSCESS OR HEMATOMA (WRVU 5.23) performed by Hayley Torres MD at [facility] OR PRO ENDOSCOPY W/VIDEO-ASST VEIN HARVEST, CABG 01/04/2012 ENDOSCOPIC HARVEST VEIN(S) FOR CABG performed by INNA TOVAR at [facility] OR PRO EXCISION, INFEC GRAFT, EXTREMITY Left 09/26/2024 EXCISION OF INFECTED GRAFT FROM LOWER EXTREMITY (WRVU 9.53) performed by Hayley Torres MD at [facility] OR PRO EXCISION, INFEC GRAFT, EXTREMITY Left 09/28/2024 EXCISION OF INFECTED GRAFT FROM LOWER EXTREMITY (WRVU 9.53) performed by Hayley Torres MD at [facility] OR PRO EXPLORATION NOT FOLLOWED BY SURG LOWER EXTREMITY ARTERY Left 09/29/2024 @EXPLORATION W\O SURGICAL REPAIR, FEMORAL ARTERY - JENNIFER (WRVU 7.5) performed by Anabel Finney MD at [facility] OR PRO FORM SKIN PEDICLE FLAP SCALP, ARM, LEG 09/28/2024 FLAP, PEDICLE,W OR W/O TRANSFER, LEGS (WRVU 10.12) performed by Hayley Torres MD at [facility] OR PRO I&D DEEP ABSCESS BURSA/HEMATOMA THIGH/KNEE REGION Left 09/26/2024 INCISION & DRAINAGE ABSCESS OR HEMATOMA, THIGH, KNEE SUPERFICIAL (WRVU 6.78) performed by Hayley Torres MD at [facility] OR PRO REVISION FEMORAL ANAST BPG GROIN OPEN W/NONAUTOG PATCH GRAFT Left 09/28/2024 REV. FEM. ANASTOMOSIS OF SYN. BYPASS GRAFT USING NONAUTOGENOUS PATCH ANGIOPLASTY-JENNIFER (WRVU 23.15) performed by Hayley Torres MD at [facility] OR PRO UNLISTED PROCEDURE VASCULAR SURGERY Left 09/28/2024 HARVEST SAPHENOUS VEIN (WRVU 13.24) performed by Hayley Torres MD at [facility] OR VS ARTERIOGRAM LOWER EXTREMITY VASCULAR SURGERY 07/20/2024 VS Arteriogram Lower Extremity Vascular Surgery 07/20/2024 Anabel Finney MD [facility] Social History: Patient lives w/ [...] Pt issued and educated on use of factory engineer for factory engineer lower items. Self-feeding: Independent Grooming: Set up [...] Discharge planning Total Minutes, Occupational Therapy: 35 ([phone]) OT Evaluation Code Rationale: Diagnosis & Pertinent Co-Morbidities affecting Plan of Care: see PMHx Occupational Profile & Client History: Brief Expanded Extensive x Assessment of Occupational Performance: 1-3 performance deficits 3-5 performance deficits x 5 + performance deficits Clinical Decision Making: Low Moderate High x Clinical decision making of low complexity using standardized patient assessment instrument and measurable assessment of functional outcome. Pager: [phone] Jorge Goetz OT 10/03/2024 Occupational Therapy Rehabilitation [...] Mccormick MD - 10/02/2024 2:06 PM EST [facility] [place] Patient Name: Geovanna Dixon Jr. : [id number] MR#: [id number] Case Date: 10/02/2024 Surgeon: Surgeons and Role: [...] 2nd toe amputation who was transferred from [facility] given concern for infected left fem-BK [...] the groin, we then attached a 15 Russian Jose drain to the [place] drain, and remove the Yung drain, replacing it with the 15 Russian Jose drain. In a similar way we [...] through: Primary Insurance: WELL[employer] MANAGED MEDICARE Payor: [employer] MA[employer]GED MEDICARE / Plan: WELL[employer] MANAGED MEDICARE PPO / Product Type: *No Product type* / Secondary Insurance: N/A Plan for discharge is: Pending Hospital Course and PT/OT Recommendations Outpatient Agency/Support Group Needs: None Home Health Services: Occupational Therapy, Physical Therapy, Registered Nurse Agency Referrals: [facility]. [address] [place] [address] Transportation: family or friend will provide Barriers to discharge: Global: Denies needs/concerns at this time Plan: Patient is not medically ready related to: patient is going to the OR today for a washout andremains on blowout precautions. Plan going forward is: when able patient will need to work with PT/OT Anticipated Date of Discharge: 10/10/2024 Penny ROSAS RN CM Phone: [phone] Pager: [phone] * Plan of Care - Heidi Mobley [...] output. * Consult Note - Katelyn Oconnor [facility] - 09/30/2024 7:43 AM EST [facility] Pharmacokinetics Note Drug: Vancomycin Pharmacokinetic target: AUC24 (range) 400-600 mg/L.hr Current regimen: 1500 mg IV every 8 hours Geovanna Dixon is a(n) 49 years old male receiving Vancomycin 1500 mg IV every 8 hours for bacteremia Recent measured serum creatinine values: 09/29/2024 23:52 0.48 mg/dL 09/28/2024 23:51 0.52 mg/dL 09/27/2024 23:58 0.48 mg/dL Assessment: Analysis of the most recent level(s) using [employer] gives the following patient-specific pharmacokinetic parameters: CL: [...] Finney MD - 09/29/2024 2:41 PM EST [facility] [place] Patient Name: Geovanna Dixon Jr. : [id number] MR#: [id number] Case Date: 09/29/2024 Surgeon: Surgeons and Role: [...] 2nd toe amputation who was transferred from [facility] given concern for infected left fem-BK [...] mobilized and explored. The area around the AMPOULE INSPECTOR was irrigated copiously. The flap was [...] closed with interrupted vicryl sutures and cameron. [place] were also placed at the superior aspect [...] Therapy, Physical Therapy, Registered Nurse Agency Referrals: [facility]. [address] [place] [address] Transportation: family or friend will provide Barriers [...] Discharge: 10/04/2024 Penny ROSAS RN CM Phone: [phone] Pager: [phone] * Consult Note - Rose Wright APRN [...] 2nd toe amputation who was transferred from [facility] given concern for infected left fem-BK [...] smoking 1 week ago. He presented [place] [facility] [place] and went to the OR [...] Procedure Component Value - Date/Time Blood culture [[id number]] (Abnormal) Collected: 09/27/242132 Lab Status: Preliminary result Specimen: Blood, Venous Updated: 09/29/24 0721 Blood Culture Methicillin Resistant Staphylococcus aureus Gram Stain Aerobic Bottle: Gram positive cocci in clusters Blood culture [[id number]] (Abnormal) Collected: 09/26/24 1845 Lab Status: Preliminary result Specimen: Blood, Venous Updated: 09/29/24 0719 Blood Culture Methicillin Resistant Staphylococcus aureus Comment: isolated. Susceptibilities previously reported. Gram Stain Aerobic Bottle: Gram positive cocci in clusters Blood culture [[id number]] (Abnormal) (Susceptibility) Collected: 09/26/24 1422 Lab Status: Preliminary result Specimen: Blood, Venous Updated: 09/29/24 0717 Blood Culture Methicillin Resistant Staphylococcus aureus Comment: detected by PCR Isolate saved. If future testing is required, contact the Microbiology Dictating Transcribing Machine Servicer. Gram Stain Aerobic Bottle: Gram positive cocci in clusters Susceptibility Methicillin Resistant Staphylococcus aureus VITEK 2 METHOD Clindamycin Resistant Gentamicin Susceptible [1] Linezolid Susceptible Oxacillin Resistant Trimethoprim/Sulfa Susceptible Vancomycin Susceptible [1] Gentamicin is not appropriate for monotherapy for gram-positive infections. AFB culture [[id number]] Collected: 09/27/24 1654 Lab Status: Preliminary result Specimen: Tissue from Thigh, Left Updated: 09/28/24 2226 Acid Fast Stain No acid fast bacilli seen Anaerobic Culture [[id number]] Collected: 09/27/24 165 Lab Status: Preliminary result Specimen: Tissue from Thigh, Left Updated: 09/28/24 1355 Anaerobic Culture No anaerobic organisms isolated to date Sonicated Tissue/Implant Culture [[id number]] Collected: 09/26/24 1716 Lab Status: Preliminary result Specimen: Vascular Graft from Leg, Left Updated: 09/28/24 1323 Sonicated Tissue/Implant Culture Culture in progress Tissue Culture, Aerobic Only [[id number]] (Abnormal) Collected: 09/27/24 1654 Lab Status: Preliminary result Specimen: Tissue from Thigh, Left Updated: 09/28/24 1049 Tissue Culture Rare Staphylococcus aureus Gram Stain Few Neutrophils seen No microorganisms seen Abscess/Wound Aspirate Culture, Aerobic Only [[id number]] (Abnormal) (Susceptibility) Collected: 09/26/24 1702 Lab Status: [...] to doxycycline. Abscess/Wound Aspirate Culture, Aerobic Only [[id number]] (Abnormal) (Susceptibility) Collected: 09/26/241649 Lab Status: Preliminary [...] is considered susceptible to doxycycline. Fungus culture [[id number]] Collected: 09/27/241653 Lab Status: Preliminary result Specimen: Tissue from Thigh, Left Updated: 09/28/24 0748 Fungus Culture No fungus isolated to date AFB culture [[id number]] Collected: 09/26/241701 Lab Status: Preliminary result Specimen: Abscess from Knee, Left Updated: 09/27/24 2335 Acid Fast Stain No acid fast bacilli seen MRSA PCR Screen [[id number]] (Abnormal) Collected: 09/27/24 0751 Lab Status: Final result Specimen: Swab from Nares Updated: 09/27/24 1156 MRSA PCR Detected Narrative: This test was performed using the Xpert MRSA NxG test kit and is run on the [employer] GeneXXL Video Dx System. This test is cleared by the U.S. Food and Drug Administration for clinical use and its performance characteristics have been verified by the [facility] at [facility]. Anaerobic Culture [[id number]] Collected: 09/26/241649 Lab Status: Preliminary result Specimen: Abscess from Groin, Left Updated: 09/27/24 1142 Anaerobic Culture No anaerobic organisms isolated to date Anaerobic Culture [[id number]] Collected: 09/26/241701 Lab Status: Preliminary result Specimen: Abscess from Knee, Left Updated: 09/27/24 1142 Anaerobic Culture No anaerobic organisms isolated to date Fungus culture [[id number]] Collected: 09/26/24 1650 Lab Status: Preliminary result Specimen: Abscess from Groin, Left Updated: 09/27/24726 Fungus Culture No fungus isolated to date Fungus culture [[id number]] Collected: 09/26/24 1702 Lab Status: Preliminary result Specimen: Abscess from Knee, Left Updated: 09/27/24726 Fungus Culture No fungus isolated to date New Studies Results for orders placed or performed during the hospital encounter of 09/26/[address] Read CT Lower Extremity (Exam End: 09/26/2024 1:50 PM) Result Value WORKSTATION ID [id number] Impression 1. There is a left femoral [...] care coordinator that requested your imaging first. Electronically signed by: Lisette Bruno MD, [facility] ([phone]), at 09/26/2024 3:[address] Lower Extremity w Contrast Left (Exam End: 09/27/2024 9:16 AM) Result Value WORKSTATION ID [id number] Impression IMPRESSION: 1. Interval explant of LEFT [...] care coordinator that requested your imaging first. Electronically signed by: Ignacia Chi MD, [facility] ([phone]), at 09/27/2024 10:48 AM 09/28 ABIs Interpretation: [...] 2nd toe amputation who was transferred from [facility] given concern for infected left fem-BK [...] Torres MD - 09/28/2024 12:23 PM EST [facility] [place]ative Note Patient Name: Geovanna Dixon Jr. : [id number] MR#: [id number] Case Date: 09/28/2024 Surgeon: Surgeons and Role: [...] pericardial patch and PTFE willard over the AMPOULE INSPECTOR was unincorporated. - Resection of prior [...] Destination 1 : Left femoral proximal graft Metal Mine Inspector Leg, Left SURGICAL PATHOLOGY Hayley Torres MD 09/28/2024 1410 2 : Left distal BK pop graft Metal Mine Inspector Leg, Left SURGICAL PATHOLOGY Hayley Torres MD [...] Indications: 49M with history of a left AMPOULE INSPECTOR-BK popliteal artery bypass with PTFE performed [...] solution. Systemic heparin was administered. Next, the AMPOULE INSPECTOR, SFA, and DFA were clamped. An 11-blade scalpel was used to excise the PTFE graft willard and the prior bovine pericardial patch, and all prior Prolene sutures were removed. Residual plaque in the arterial lumen was removed using a [place] elevator. The harvested vein patch was cut [...] the midline with division of the first group chief operator, such that the sartorius muscle was free [...] Torres MD - 09/28/2024 12:23 PM EST [facility] [place]ative Note Patient Name: Geovanna Dixon JrFlorencio : [id number] MR#: [id number] Case Date: 09/28/2024 Surgeon: Surgeons and Role: [...] - Prior bovine pericardial patch over the AMPOULE INSPECTOR was unincorporated. - Resection of prior [...] No * Consult Note - Tea Nguyen, [facility] - 09/28/2024 9:23 AM EST Drug: [...] Analysis of the most recent level(s) using [employer] gives the following patient-specific pharmacokinetic parameters: CL: [...] Note Patient Name: Geovanna Dixon Jr. : [id number] MR#: [id number] Case Date: 09/27/2024 Surgeon: Surgeons and Role: [...] AEROBIC & ANAEROBIC Hayley Torres MD 09/27/2024 4724 Fluids: Intraprocedure Crystalloid Total None PRBCs: none [...] Torres MD - 09/27/2024 4:27 PM EST [facility] [place] Note Patient Name: Geovanna Dixon Jr. : [id number] MR#: [id number] Case Date: 09/26/2024 Surgeon: Surgeons and Role: [...] ANAEROBIC Hayley Torres MD 09/26/2024 1702 Drains: Yung drain between left groin to left thigh [...] HPI/Surgical Indications: 49M with history of left AMPOULE INSPECTOR-BK popliteal artery bypass graft with PTFE [...] Torres MD - 09/27/2024 4:27 PM EST [facility] [place]ative Note Patient Name: Geovanna Dixon Jr. : [id number] MR#: [id number] Case Date: 09/27/2024 Surgeon: Surgeons and Role: * Hayley Torres MD - Primary * Cristino Meeks MD - Resident - Assisting * Anable Finney MD - Assisting Attending Preoperative diagnosis: [...] 2nd toe amputation who was transferred from [facility] given concern for infected left fem-BK [...] smoking 1 week ago. He presented to [facility] on 09/26 and went to the OR [...] Care red Reason for Consultation: Geovanna Dixon Florencio is a 49 y.o. male with PMH [...] management and to provide a review of [facility] diabetes care. Glargine 25 units administered this [...] regimen: Diabetes Provider: PCP in [facility] Medications: Lantus 50 units, lispro [...] Date CHOLHDL 9.1 08/21/2013 Assessment: Geovanna Dixon is a 49 y.o. male with PMH [...] Cunningham APRN Endocrinology Diabetes Management Service Pager: [phone] Weekends please page [phone] 80 minute visit was spent in counseling [...] surrogate would be surrogate decision maker per [place] surrogate decision making law. (Only good for 180 days) Any patient receiving care in [place] must abide by [place] law. The hierarchy for surrogate decision making [...] (i) The agent with financial power of trademark attorney or a conservator appointed in accordance [...] were you homeless or living in a skilled nursing (including now)?: No In the past 12 months has the [employer], gas, oil, or water [facility] threatened to shut off services in your [...] Current DME: none Home Address confirmed as: [address] [place] [address] Social & Family Supports: All names listed [...] his home before. Health/Prescription Coverage: Primary Insurance: [employer] MANAGED MEDICARE Payor: [employer] MA[employer]ED MEDICARE / Plan: [facility] MANAGED MEDICARE PPO / Product Type: *No Product type* / Secondary Insurance: N/A ; Prescription Coverage: Yes Preferred Pharmacy: [facility] - [place], [place] - [address] [place] [address] [place] [address] [facility] - [place], [place] - [address] [facility] [address] [facility] [address] [place], [place] - [address] [facility] [address] [place] Status: Patient is a : No Primary Care Provider confirmed: JUSTIN Roberson [phone] Patient/Caregiver Goals of Treatment: patient will need [...] Rating handout. They have requested referrals to: [facility]. [address] [place] [address] Expected date of discharge: TBD Referral routed to the Auto Painter Helper for matching with agency/vendor and to provide [...] care as indicated. Penny ROSAS, RN Phone: [phone] Pager: [phone] * Consult Note - Stacey Thomas MD [...] extremity aching prompting him to go to [facility]. The groin pain dissipated. About a week later on 09/26 he developed left-sided groin pain prompting him to go to [facility] once again. Lab work notable for WBC count of 21, lactic acid 3.6. He underwent evaluation with a CT scan demonstrating an abscess from the left groin operative site the entire left of the graft down by the knee. He was transferred to [facility] for further care and he [...] 3.51) performed by Thony Garcia MD at [facility] PRO BYPASS GRAFT OTHR, FEM-TIBIAL Left 08/01/2024 @BYPASS GRAFT, FEM-ANT TIBIAL, -POST TIBIAL, -PERONEAL, -DP W\ SYNTHETIC CONDUIT (WRVU 23.66) performed by Lisette Maldonado MD at [facility] PRO CABG, ARTERY-VEIN, SINGLE 01/04/2012 @CABG, VENOUS & ARTERIAL GRAFT;SINGLE VEIN GRAFT performed by INNA TOVAR at [facility] PRO ENDOSCOPY W/VIDEO-ASST VEIN HARVEST, CABG 01/04/2012 ENDOSCOPIC HARVEST VEIN(S) FOR CABG performed by INNA TOVAR at [facility] OR VS ARTERIOGRAM LOWER EXTREMITY VASCULAR SURGERY 07/20/2024 VS Arteriogram Lower Extremity Vascular Surgery 07/20/2024 Anabel Finney MD [facility] Medications: potassium chloride ER (Klor-Con [...] & 2100. LLE DP signal absent on 2199 assessment, [...] admitted to SICU as a transfer from [facility] for suspected graft infection/sepsis. A/Ox4, able to [...] Torres MD - 09/26/2024 4:50 PM EST [facility] [place] Note Patient Name: Geovanna Dixon Jr. : [id number] MR#: [id number] Case Date: 09/26/2024 Surgeon: Surgeons and Role: * Hayley Torres MD - Primary * Dolly Dan MD - Resident - Assisting * Ken Moeller MD - Resident - Assisting Preoperative diagnosis: left infected femoral to below knee bypass graft Postoperative diagnosis: left infected femoral to below knee bypass graft Procedure: Explant of infected LEFT AMPOULE INSPECTOR to below-knee popliteal artery PTFE bypass [...] Indications: 49M with history of a left AMPOULE INSPECTOR-BK popliteal artery bypass with PTFE performed [...] 2nd toe amputation who was transferred from [facility] given concern for infected left fem-BK [...] 3.51) performed by Thony Garcia MD at [facility] MA[facility] OR PRO BYPASS GRAFT OTHR, FEM-TIBIAL Left 08/01/2024 @BYPASS GRAFT, FEM-ANT TIBIAL, -POST TIBIAL, -PERONEAL, -DP W\ SYNTHETIC CONDUIT (WRVU 23.66) performed by Lisette Maldonado MD at [facility] OR PRO CABG, ARTERY-VEIN, SINGLE 01/04/2012 @CABG, VENOUS & ARTERIAL GRAFT;SINGLE VEIN GRAFT performed by INNA TOVAR at [facility] MA[facility] OR PRO ENDOSCOPY W/VIDEO-ASST VEIN HARVEST, CABG 01/04/2012 ENDOSCOPIC HARVEST VEIN(S) FOR CABG performed by INNA TOVAR at [facility] MA[facility] OR VS ARTERIOGRAM LOWER EXTREMITY VASCULAR SURGERY 07/20/2024 VS Arteriogram Lower Extremity Vascular Surgery 07/20/2024 Anabel Finney MD [facility] INTERVENTIONL RAD Social Hx: Social History Socioeconomic [...] daily. Use as instructed Indications: each 1 FreeStyle Lancets 28 gauge Misc [...] 2nd toe amputation who was transferred from [facility] given concern for infected left fem-BK [...] 10/23/2024 1:00 PM EST Appointment XRay at [address] [place] [address] Isabela Hayward APRN [facility] [place] [id number] 11/09/2024 1:30 PM EST Office Visit [place] [address] Isabela Hayward, SR. MEDIA MANAGER [facility] [place] [address] 11/10/2024 10:00 AM EST Office Visit [place] [address] Dai Whitman, RESHMA 11/21/2024 2:15 PM EST Office Visit [place] [address] Dayanara Grover MD [facility] DR [place] [address] Pending Results Name Type Priority Associated Diagnoses [...] 10 PM EST Excision, Infec Graft, Extremity ([id number]) 09/28/2024 11:28 AM EST Infected explanted left leg bypass graft Form Skin Pedicle Flap Scalp, Arm, Leg ([id number]) 09/28/2024 11:28 AM EST Infected explanted left leg bypass graft Unlisted Procedure Vascular Surgery ([id number]) 09/28/2024 11:28 AM EST Infected explanted left leg bypass graft Revision Femoral Anast Bpg Groin Open W/Nonautog Patch Graft ([id number]) 09/28/2024 11:28 AM EST Infected explanted left [...] Non-fasting (10/16/2024) Glucose Lvl - External 124(H) [facility] Blood Urea Nitrogen - External 17 [facility] Creatinine - External 0.9 [facility] EGFR - External 104.05 [facility] Anion Gap - External 11.6(H) [facility] Sodium - External 141 [facility] Potassium - External 4.3 [facility] Chloride - External 103 [facility] CO2 - External 26.4 [facility] Calcium - External 9.0 [facility] Protein, Total - External 6.9 [facility] Albumin - External 3.0(L) [facility] Total Bilirubin - External 0.20 [facility] Alk Phos - External 124(H) [facility] AST (SGOT) - External 12 [facility] ALT (SGPT) - External 22 [facility] Blood VENOUS BLOOD SPECIMEN / Unknown 10/16/2024 Amaya Hernandez MD CHEMISTRY ORDERABLES [facility] [address] [place], [place] [id number] [place] [address] * CK (10/16/2024) CK, Total - External 39 [facility] Blood VENOUS BLOOD SPECIMEN / Unknown 10/16/2024 Amaya Hernandez MD CHEMISTRY ORDERABLES [address] [place], [place] [id number] [place] [address] * (ABNORMAL) CBC (with Diff) (10/16/2024) WBC - External 10.99(H) [facility] RBC - External 3.71(L) [facility] Hemoglobin - External 10.8(L) [facility] Hematocrit - External 33.8(L) [facility] MCV - External 91 [facility] MCH - External 29.1 [facility] MCHC - External 32.0 [facility] RDWCV - External 14.2(H) [facility] Platelets - External 512(H) [facility] MPV - External 9.8 [facility] NRBC % - External 0.0 [facility] NRBC Abs - External 0.0 [facility] Neutrophils % - External 64.2 [facility] Lymphocytes % - External 25.8 [facility] Monocytes % - External 6.8 [facility] Eosinophils % - External 2.0 [facility] Basophils % - External 0.9 [facility] Immature Gran % - External 0.3 [facility] Neutr ABS (ANC) - External 7.06(H) [facility] Lymphocyte ABS - External 2.84 [facility] Monocyte ABS - External 0.75 [facility] Eosinophil ABS - External 0.22 [facility] Basophil ABS - External 0.10 [facility] Blood VENOUS BLOOD SPECIMEN / Unknown 10/16/2024 Amaya Hernandez MD HEMATOLOGY ORDERABLE S [address] [place] [address], [facility] [phone] * POC, GLUCOSE (10/10/2024 4:27 PM EST) Glucometer, POC 172 65 - 199 mg/dL 10/10/2024 4:27 PM EST [facility] Comment:Supplemental ranges: <140 mg/dL before meals <180 mg/dL all other times of the day. Blood CAPILLARY BLOOD / Unknown 10/10/2024 4:27 PM EST 10/10/2024 4:27 PM EST Hayley Torres MD POINT OF CARE TEST O GILDA Performing Organization Address [facility] Co de Phone Number [facility] [place] [address] * POC, GLUCOSE (10/10/2024 11:10 AM EST) Glucometer, POC 174 65 - 199 mg/dL 10/10/2024 11:11 AM EST [facility] Comment:Supplemental ranges: <140 mg/dL before meals <180 mg/dL all other times of the day. Blood CAPILLARY BLOOD / Unknown 10/10/2024 11:10 AM EST 10/10/2024 11:11 AM EST Hayley Torres MD POINT OF CARE TEST Stephanie VO Performing Organization Address City/[facility]/ZIP Co de Phone Number [facility] [place] [address] * POC, GLUCOSE (10/10/2024 7:46 AM EST) Glucometer, POC 141 65 - 199 mg/dL 10/10/2024 7:46 AM EST [facility] Comment:Supplemental ranges: <140 mg/dL before meals <180 mg/dL all other times of the day. Blood CAPILLARY BLOOD / Unknown 10/10/2024 7:46 AM EST 10/10/2024 7:46 AM EST Hayley Torres MD POINT OF CARE TEST Stephanie VO Performing Organization Address [facility]/ZIP Co de Phone Number [facility] [place] [address] * POC, GLUCOSE (10/10/2024 6:11 AM EST) Glucometer, POC 127 65 - 199 mg/dL 10/10/2024 6:11 AM EST [facility] Comment:Supplemental ranges: <140 mg/dL before meals <180 mg/dL all other times of the day. Blood CAPILLARY BLOOD / Unknown 10/10/2024 6:11 AM EST 10/10/2024 6:11 AM EST Hayley Torres MD POINT OF CARE TEST Stephanie VO Performing Organization Address [facility] Co de Phone Number [facility] [place] [address] * CK (10/10/2024 12:33 AM EST) Creatine Kinase 32 0 - 200 unit/L 10/10/2024 8:54 AM EST [facility] Blood VENOUS BLOOD SPECIMEN / Unknown Venipuncture / Unknown 10/10/2024 12:33 AM EST 10/10/2024 12:43 AM EST María Carranza APRN CHEMISTRY ORDER RANDELL Performing Organization Address City/[facility]/ZIP Co de Phone Number [facility] [place] [address] * (ABNORMAL) CBC (with Diff) (10/10/2024 12:33 AM EST) White Blood Cell 11.57(H) 4.00 - 9.50 x10(3)/mc L 10/10/2024 12:48 AM EST [facility] Red Blood Cell 3.75(L) 4.58 - 5.54 x10(6)/mc L 10/10/2024 12:48 AM [facility] Hemoglobin 11.1(L) 13.7 - 16.5 g/dL 10/10/2024 12:48 AM [facility] Hematocrit 33.5(L) 40.5 - 48.5 % 10/10/2024 12:48 AM [facility] Mean Cell Volume 89.3 82.9 - 93.1 fL 10/10/2024 12:48 AM [facility] Mean Cell Hemoglobin 29.6 27.5 - 32.1 pg 10/10/2024 12:48 AM [facility] Mean Cell Hemoglobin Concentration 33.1 32.0 - 35.7 g/dL 10/10/2024 12:48 AM [facility] Platelet 823(H) 145 - 357 x10(3)/mc L 10/10/2024 12:48 AM [facility] Mean Platelet Volume 9.2 7.6 - 12.9 fL 10/10/2024 12:48 AM [facility] RDW Standard Deviation 46.3(H) 36.0 - 45.0 fL 10/10/2024 12:48 AM [facility] RDW coefficient of variation 14.6(H) 11.4 - 13.8 % 10/10/2024 12:48 AM [facility] NRBC% auto 0.0 % 10/10/2024 12:48 AM [facility] NRBC Absolute <0.01 <0.01 x10(3)/mc L 10/10/2024 12:48 AM [facility] Neutrophil % 61.3 % 10/10/2024 12:48 AM [facility] Neutrophil Absolute (ANC) - Automated 7.08(H) 1.70 - 6.10 x10(3)/mc L 10/10/2024 12:48 AM [facility] Lymph % 28.7 % 10/10/2024 12:48 AM [facility] Lymph Absolute 3.32(H) 0.90 - 3.20 x10(3)/mc L 10/10/2024 12:48 AM [facility] Monocyte % 7.0 % 10/10/2024 12:48 AM [facility] Monocyte Absolute 0.81 0.30 - 0.90 x10(3)/mc L 10/10/2024 12:48 AM [facility] Eos % 1.6 % 10/10/2024 12:48 AM [facility] Eos Absolute 0.19 0.00 - 0.40 x10(3)/mc L 10/10/2024 12:48 AM [facility] Basophil % 1.0 % 10/10/2024 12:48 AM [facility] Baso Absolute 0.12(H) 0.00 - 0.10 x10(3)/mc L 10/10/2024 12:48 AM [facility] Immature Gran % 0.4 % 12:48 AM [facility] Immature Gran Absolute 0.05(H) 0.00 - 0.04 x10(3)/mc L 10/10/2024 12:48 AM [facility] Blood VENOUS BLOOD SPECIMEN / Unknown Venipuncture / Unknown 10/10/2024 12:33 AM EST 10/10/2024 12:43 AM EST Hayley Torres MD HEMATOLOGY ORDERABLE S [facility] [place] [address] * (ABNORMAL) Basic Metabolic Panel (10/10/2024 12:33 AM EST) Glucose 125 65 - 199 mg/dL 10/10/2024 1:12 AM [facility] Comment:Glucose Concentratio n >=200 mg/dL plus symptoms is consistent with Diabetes Mellitus. Blood Urea Nitrogen 19 10 - 20 mg/dL 10/10/2024 1:12 AM [facility] Creatinine 0.57(L) 0.80 - 1.50 mg/dL 10/10/2024 1:12 AM [facility] Sodium 138 135 - 145 mMol/L 10/10/2024 1:12 AM [facility] Potassium 4.1 3.5 - 5.0 mMol/L 10/10/2024 1:12 AM EST [facility] Chloride 103 98 - 107 mMol/L 10/10/2024 1:12 AM [facility] Carbon Dioxide 25 22 - 31 mMol/L 10/10/2024 1:12 AM [facility] Anion Gap 10 5 - 15 mMol/L 10/10/2024 1:12 AM [facility] Calcium 9.4 8.5 - 10.5 mg/dL 10/10/2024 1:12 AM [facility] Est Glomerular Filtration Rate - Male 119 mL/min/1. 73 m?? 10/10/2024 1:12 AM [facility] Comment: This patient's estimated GFR [...] ORDERABLES [facility] [place] [address] * Phosphorus (10/10/2024 12:33 AM EST) Phosphorus 3.8 2.5 - 4.5 mg/dL 10/10/2024 1:12 AM EST [facility] Blood VENOUS BLOOD SPECIMEN / Unknown Venipuncture / Unknown 10/10/2024 12:33 AM EST 10/10/2024 12:43 AM EST Hayley Torres MD CHEMISTRY ORDERABLES [facility] [place] [address] * Magnesium (10/10/2024 12:33 AM EST) Magnesium 0.81 0.69 - 1.07 mMol/L 10/10/2024 1:12 AM EST [facility] Blood VENOUS BLOOD SPECIMEN / Unknown Venipuncture / Unknown 10/10/2024 12:33 AM EST 10/10/2024 12:43 AM EST Hayley Torres MD CHEMISTRY ORDERABLES Performing Organization Address [facility]/ZIP Co de Phone Number [facility] [place] [address] * POC, GLUCOSE (10/10/2024 12:31 AM EST) Glucometer, POC 119 65 - 199 mg/dL 10/10/2024 12:32 AM EST [facility] Comment:Supplemental ranges: <140 mg/dL before meals <180 mg/dL all other times of the day. Blood CAPILLARY BLOOD / Unknown 10/10/2024 12:31 AM EST 10/10/2024 12:32 AM EST Hayley Torres MD POINT OF CARE TEST O RDERABLES Performing Organization Address City/[facility]/ZIP Co de Phone Number [facility] [place] [address] * POC, GLUCOSE (10/09/2024 8:16 PM EST) Glucometer, POC 104 65 - 199 mg/dL 10/09/2024 8:16 PM EST [facility] Comment:Supplemental ranges: <140 mg/dL before meals <180 mg/dL all other times of the day. Blood CAPILLARY BLOOD / Unknown 10/09/2024 8:16 PM EST 10/09/2024 8:16 PM EST Hayley Torres MD POINT OF CARE TEST O GILDA Performing Organization Address [facility] Co de Phone Number [facility] [place] [address] * POC, GLUCOSE (10/09/2024 3:57 PM EST) Glucometer, POC 120 65 - 199 mg/dL 10/09/2024 3:57 PM EST [facility] Comment:Supplemental ranges: <140 mg/dL before meals <180 mg/dL all other times of the day. Blood CAPILLARY BLOOD / Unknown 10/09/2024 3:57 PM EST 10/09/2024 3:57 PM EST Hayley Torres MD POINT OF CARE TEST Stephanie VO Performing Organization Address [facility] Phone Number [facility] [place] [address] * Place PICC Line: Contact Vascular Access Page [phone] Extremity to exclude: No restrictions; Is PICC [...] to the planned procedure. Hand Hygiene: The traveling plant operator did perform hand hygiene prior to line insertion. Catheter type: PICC Lot number: [id number] Procedure Technique: Skin was prepped with chlorhexidine. [...] Guidance (IV Team) (10/09/2024 1:55 PM EST) WORKSTATION ID [id number] DH RAD Anatomical Region Laterality Modality N/A [...] coordinator that requested your imaging first. ? Electronically signed by: Terell Salvador MD, [facility] ([phone]), at 10/09/2024 3:30 PM Narrative 10/09/2024 3:30 [...] care coordinator that requested your imaging first. María LARKINOneil VLADIMIR * POC, GLUCOSE (10/09/2024 11:40 AM EST) Glucometer, POC 180 65 - 199 mg/dL 10/09/2024 11:40 AM EST [facility] Comment:Supplemental ranges: <140 mg/dL before meals <180 mg/dL all other times of the day. Blood CAPILLARY BLOOD / Unknown 10/09/2024 11:40 AM EST 10/09/2024 11:41 AM EST Hayley Torres MD POINT OF CARE TEST O GILDA Performing Organization Address City/[facility]/ZIP Co de Phone Number [facility] [place] [address] * (ABNORMAL) POC, GLUCOSE (10/09/2024 7:35 AM [...] GILDA [facility] [place] [address] * POC, GLUCOSE (10/09/2024 4:26 AM EST) [...] RDERABLES [facility] [place] [address] * (ABNORMAL) CBC (with Diff) (10/09/2024 12:45 AM EST) White Blood Cell 11.27(H) 4.00 - 9.50 x10(3)/mc L 10/09/2024 1:31 AM [facility] Red Blood Cell 3.74(L) 4.58 - 5.54 x10(6)/mc L 10/09/2024 1:31 AM [facility] Hemoglobin 10.8(L) 13.7 - 16.5 g/dL 10/09/2024 1:31 AM [facility] Hematocrit 33.5(L) 40.5 - 48.5 % 10/09/2024 1:31 AM [facility] Mean Cell Volume 89.6 82.9 - 93.1 fL 10/09/2024 1:31 AM [facility] Mean Cell Hemoglobin 28.9 27.5 - 32.1 pg 10/09/2024 1:31 AM [facility] Mean Cell Hemoglobin Concentration 32.2 32.0 - 35.7 g/dL 10/09/2024 1:31 AM [facility] Platelet 886(H) 145 - 357 x10(3)/mc L 10/09/2024 1:31 AM [facility] Mean Platelet Volume 9.5 7.6 - 12.9 fL 10/09/2024 1:31 AM [facility] RDW Standard Deviation 47.7(H) 36.0 - 45.0 fL 10/09/2024 1:31 AM [facility] RDW coefficient of variation 14.6(H) 11.4 - 13.8 % 10/09/2024 1:31 AM [facility] NRBC% auto 0.0 % 10/09/2024 1:31 AM [facility] NRBC Absolute <0.01 <0.01 x10(3)/mc L 10/09/2024 1:31 AM [facility] Neutrophil % 61.7 % 10/09/2024 1:31 AM [facility] Neutrophil Absolute (ANC) - Automated 6.95(H) 1.70 - 6.10 x10(3)/mc L 10/09/2024 1:31 AM [facility] Lymph % 28.3 % 10/09/2024 1:31 AM [facility] Lymph Absolute 3.19 0.90 - 3.20 x10(3)/mc L 10/09/2024 1:31 AM [facility] Monocyte % 6.8 % 10/09/2024 1:31 AM [facility] Monocyte Absolute 0.77 0.30 - 0.90 x10(3)/mc L 10/09/2024 1:31 AM [facility] Eos % 1.5 % 10/09/2024 1:31 AM [facility] Eos Absolute 0.17 0.00 - 0.40 x10(3)/mc L 10/09/2024 1:31 AM [facility] Basophil % 1.1 % 10/09/2024 1:31 AM [facility] Baso Absolute 0.12(H) 0.00 - 0.10 x10(3)/mc L 10/09/2024 1:31 AM [facility] Immature Gran % 0.6 % 1:31 AM [facility] Immature Gran Absolute 0.07(H) 0.00 - 0.04 x10(3)/mc L 10/09/2024 1:31 AM [facility] Blood VENOUS BLOOD SPECIMEN / Unknown Venipuncture / Unknown 10/09/2024 12:45 AM EST 10/09/2024 1:27 AM EST Hayley Torres MD HEMATOLOGY ORDERABLE S [facility] [place] [address] * (ABNORMAL) Basic Metabolic Panel (10/09/2024 12:45 AM EST) Glucose 135 65 - 199 mg/dL 10/09/2024 1:54 AM EST [facility] Comment:Glucose Concentratio n >=200 mg/dL plus symptoms is consistent with Diabetes Mellitus. Blood Urea Nitrogen 22(H) 10 - 20 mg/dL 10/09/2024 1:54 AM [facility] Creatinine 0.53(L) 0.80 - 1.50 mg/dL 10/09/2024 1:54 AM [facility] Sodium 138 135 - 145 mMol/L 10/09/2024 1:54 AM [facility] Potassium 4.1 3.5 - 5.0 mMol/L 10/09/2024 1:54 AM [facility] Chloride 102 98 - 107 mMol/L 10/09/2024 1:54 AM [facility] Carbon Dioxide 24 22 - 31 mMol/L 10/09/2024 1:54 AM [facility] Anion Gap 12 5 - 15 mMol/L 10/09/2024 1:54 AM [facility] Calcium 9.4 8.5 - 10.5 mg/dL 10/09/2024 1:54 AM [facility] Est Glomerular Filtration Rate - Male 122 mL/min/1. 73 m?? 10/09/2024 1:54 AM [facility] Comment: This patient's estimated GFR [...] Torres MD CHEMISTRY ORDERABLES Performing Organization Address City/[facility]/ZIP Co de Phone Number [facility] [place] [address] * Phosphorus (10/09/2024 12:45 AM EST) Phosphorus 3.9 2.5 - 4.5 mg/dL 10/09/2024 1:54 AM EST [facility] Blood VENOUS BLOOD SPECIMEN / Unknown Venipuncture / Unknown 10/09/2024 12:45 AM EST 10/09/2024 1:27 AM EST Hayley Torres MD CHEMISTRY ORDERABLES Performing Organization Address City/[facility]/ZIP Co de Phone Number [facility] [place] [address] * Magnesium (10/09/2024 12:45 AM EST) Magnesium 0.80 0.69 - 1.07 mMol/L 10/09/2024 1:54 AM EST [facility] Blood VENOUS BLOOD SPECIMEN / Unknown Venipuncture / Unknown 10/09/2024 12:45 AM EST 10/09/2024 1:27 AM EST Hayley Torres MD CHEMISTRY ORDERABLES Performing Organization Address City/[facility]/ZIP Co de Phone Number [facility] [place] [address] * POC, GLUCOSE (10/09/2024 12:11 AM EST) Glucometer, POC 157 65 - 199 mg/dL 10/09/2024 12:11 AM EST [facility] Comment:Supplemental ranges: <140 mg/dL before meals <180 mg/dL all other times of the day. Blood CAPILLARY BLOOD / Unknown 10/09/2024 12:11 AM EST 10/09/2024 12:11 AM EST Hayley Torres MD POINT OF CARE TEST O GILDA Performing Organization Address City/[facility]/ZIP Co de Phone Number [facility] [place] [address] * POC, GLUCOSE (10/08/2024 7:25 PM EST) Glucometer, POC 157 65 - 199 mg/dL 10/08/2024 7:25 PM EST [facility] Comment:Supplemental ranges: <140 mg/dL before meals <180 mg/dL all other times of the day. Blood CAPILLARY BLOOD / Unknown 10/08/2024 7:25 PM EST 10/08/2024 7:25 PM EST Hayley Torres MD POINT OF CARE TEST O GILDA Performing Organization Address City/[facility]/ZIP Co de Phone Number [facility] [place] [address] * POC, GLUCOSE (10/08/2024 5:54 PM EST) [...] GILDA [facility] [place] [address] * (ABNORMAL) POC, GLUCOSE (10/08/2024 4:08 PM [...] CARE TEST O GILDA Performing Organization Address City/[facility] Co de Phone Number [facility] [place] [address] * POC, GLUCOSE (10/08/2024 12:44 PM EST) Glucometer, POC 146 65 - 199 mg/dL 10/08/2024 12:44 PM EST [facility] Comment:Supplemental ranges: <140 mg/dL before meals <180 mg/dL all other times of the day. Blood CAPILLARY BLOOD / Unknown 10/08/2024 12:44 PM EST 10/08/2024 12:44 PM EST Hayley Torres MD POINT OF CARE TEST O GILDA Performing Organization Address City/[facility]/ZIP Co de Phone Number [facility] [place] [address] * POC, GLUCOSE (10/08/2024 8:30 AM EST) Glucometer, POC 172 65 - 199 mg/dL 10/08/2024 8:30 AM EST [facility] Comment:Supplemental ranges: <140 mg/dL before meals <180 mg/dL all other times of the day. Blood CAPILLARY BLOOD / Unknown 10/08/2024 8:30 AM EST 10/08/2024 8:30 AM EST Hayley Torres MD POINT OF CARE TEST O RDERABLES Performing Organization Address [facility]/ZIP Co de Phone Number [facility] [place] [address] * Vancomycin Level, Random (10/08/2024 5:59 AM EST) Vancomycin, Random 6.8 mg/L 2023 7:58 AM EST [facility] Comment:This level is for de termination of the patient's vancomycin hvdq-ieedn-cbx-curve (AUC) value. Contact the inpatient pharmacy for interpretation. Blood VENOUS BLOOD SPECIMEN / Unknown Venipuncture / Unknown 10/08/2024 5:59 AM EST 10/08/2024 7:29 AM EST Hayley Torres MD CHEMISTRY ORDERABLES Performing Organization Address [facility] Co de Phone Number [facility] [place] [address] * POC, GLUCOSE (10/08/2024 4:02 AM EST) Glucometer, POC 163 65 - 199 mg/dL 10/08/2024 4:02 AM EST [facility] Comment:Supplemental ranges: <140 mg/dL before meals <180 mg/dL all other times of the day. Blood CAPILLARY BLOOD / Unknown 10/08/2024 4:02 AM EST 10/08/2024 4:02 AM EST Hayley Torres MD POINT OF CARE TEST O RDERABLES Performing Organization Address City/[facility]/ZIP Co de Phone Number [facility] [place] [address] * (ABNORMAL) CBC (with Diff) (10/08/2024 12:08 AM EST) White Blood Cell 10.35(H) 4.00 - 9.50 x10(3)/mc L 10/08/2024 12:29 AM EST [facility] LABORATORY Red Blood Cell 3.53(L) 4.58 - 5.54 x10(6)/mc L 10/08/2024 12:29 AM [facility] Hemoglobin 10.2(L) 13.7 - 16.5 g/dL 10/08/2024 12:29 AM [facility] Hematocrit 31.7(L) 40.5 - 48.5 % 10/08/2024 12:29 AM [facility] Mean Cell Volume 89.8 82.9 - 93.1 fL 10/08/2024 12:29 AM [facility] Mean Cell Hemoglobin 28.9 27.5 - 32.1 pg 10/08/2024 12:29 AM [facility] Mean Cell Hemoglobin Concentration 32.2 32.0 - 35.7 g/dL 10/08/2024 12:29 AM [facility] Platelet 778(H) 145 - 357 x10(3)/mc L 10/08/2024 12:29 AM [facility] Mean Platelet Volume 9.1 7.6 - 12.9 fL 10/08/2024 12:29 AM [facility] RDW Standard Deviation 47.5(H) 36.0 - 45.0 fL 10/08/2024 12:29 AM [facility] RDW coefficient of variation 14.6(H) 11.4 - 13.8 % 10/08/2024 12:29 AM [facility] NRBC% auto 0.0 % 10/08/2024 12:29 AM [facility] NRBC Absolute <0.01 <0.01 x10(3)/mc L 10/08/2024 12:29 AM [facility] Neutrophil % 60.9 % 10/08/2024 12:29 AM [facility] Neutrophil Absolute (ANC) - Automated 6.30(H) 1.70 - 6.10 x10(3)/mc L 10/08/2024 12:29 AM [facility] Lymph % 28.4 % 10/08/2024 12:29 AM [facility] Lymph Absolute 2.94 0.90 - 3.20 x10(3)/mc L 10/08/2024 12:29 AM [facility] Monocyte % 7.2 % 10/08/2024 12:29 AM [facility] Monocyte Absolute 0.75 0.30 - 0.90 x10(3)/mc L 10/08/2024 12:29 AM [facility] Eos % 1.7 % 10/08/2024 12:29 AM [facility] Eos Absolute 0.18 0.00 - 0.40 x10(3)/mc L 10/08/2024 12:29 AM [facility] Basophil % 1.0 % 10/08/2024 12:29 AM [facility] Baso Absolute 0.10 0.00 - 0.10 x10(3)/mc L 10/08/2024 12:29 AM [facility] Immature Gran % 0.8 % 12:29 AM [facility] Immature Gran Absolute 0.08(H) 0.00 - 0.04 x10(3)/mc L 10/08/2024 12:29 AM [facility] Blood VENOUS BLOOD SPECIMEN / Unknown Venipuncture / Unknown 10/08/2024 12:08 AM EST 10/08/2024 12:23 AM EST Hayley Torres MD HEMATOLOGY ORDERABLE S [facility] [place] [address] * (ABNORMAL) Basic Metabolic Panel (10/08/2024 12:08 AM EST) Glucose 151 65 - 199 mg/dL 10/08/2024 12:50 AM [facility] Comment:Glucose Concentratio n >=200 mg/dL plus symptoms is consistent with Diabetes Mellitus. Blood Urea Nitrogen 19 10 - 20 mg/dL 10/08/2024 12:50 AM [facility] Creatinine 0.60(L) 0.80 - 1.50 mg/dL 10/08/2024 12:50 AM [facility] Sodium 135 135 - 145 mMol/L 10/08/2024 12:50 AM [facility] Potassium 3.8 3.5 - 5.0 mMol/L 10/08/2024 12:50 AM [facility] Chloride 101 98 - 107 mMol/L 10/08/2024 12:50 AM [facility] Carbon Dioxide 25 22 - 31 mMol/L 10/08/2024 12:50 AM [facility] Anion Gap 9 5 - 15 mMol/L 10/08/2024 12:50 AM [facility] Calcium 9.2 8.5 - 10.5 mg/dL 10/08/2024 12:50 AM [facility] Est Glomerular Filtration Rate - Male 118 mL/min/1. 73 m?? 10/08/2024 12:50 AM [facility] Comment: This patient's estimated GFR [...] ORDERABLES [facility] [place] [address] * Phosphorus (10/08/2024 12:08 AM EST) Phosphorus 3.4 2.5 - 4.5 mg/dL 10/08/2024 12:50 AM EST [facility] Blood VENOUS BLOOD SPECIMEN / Unknown Venipuncture / Unknown 10/08/2024 12:08 AM EST 10/08/2024 12:23 AM EST Hayley Torres MD CHEMISTRY ORDERABLES [facility] [place] [address] * Magnesium (10/08/2024 12:08 AM EST) Magnesium 0.85 0.69 - 1.07 mMol/L 10/08/2024 12:50 AM EST [facility] Blood VENOUS BLOOD SPECIMEN / Unknown Venipuncture / Unknown 10/08/2024 12:08 AM EST 10/08/2024 12:23 AM EST Hayley Torres MD CHEMISTRY ORDERABLES Performing Organization Address City/[facility]/ZIP Co de Phone Number [facility] [place] [address] * CK (10/08/2024 12:08 AM EST) Creatine Kinase 24 0 - 200 unit/L 10/08/2024 12:50 AM EST [facility] Blood VENOUS BLOOD SPECIMEN / Unknown Venipuncture / Unknown 10/08/2024 12:08 AM EST 10/08/2024 12:23 AM EST Hayley Torres MD CHEMISTRY ORDERABLES Performing Organization Address City/[facility]/ZIP Co de Phone Number [facility] [place] [address] * POC, GLUCOSE (10/08/2024 12:05 AM EST) Glucometer, POC 100 65 - 199 mg/dL 10/08/2024 12:05 AM EST [facility] Comment:Supplemental ranges: <140 mg/dL before meals <180 mg/dL all other times of the day. Blood CAPILLARY BLOOD / Unknown 10/08/2024 12:05 AM EST 10/08/2024 12:05 AM EST Halyey Torres MD POINT OF CARE TEST O GILDA Performing Organization Address City/[facility]/ZIP Co de Phone Number [facility] [place] [address] * POC, GLUCOSE (10/07/2024 8:29 PM EST) Glucometer, POC 107 65 - 199 mg/dL 10/07/2024 8:30 PM EST [facility] Comment:Supplemental ranges: <140 mg/dL before meals <180 mg/dL all other times of the day. Blood CAPILLARY BLOOD / Unknown 10/07/2024 8:29 PM EST 10/07/2024 8:30 PM EST Hayley Torres MD POINT OF CARE TEST O GILDA Performing Organization Address [facility] Co de Phone Number [facility] [place] [address] * POC, GLUCOSE (10/07/2024 4:33 PM EST) Glucometer, POC 129 65 - 199 mg/dL 10/07/2024 4:33 PM EST [facility] Comment:Supplemental ranges: <140 mg/dL before meals <180 mg/dL all other times of the day. Blood CAPILLARY BLOOD / Unknown 10/07/2024 4:33 PM EST 10/07/2024 4:34 PM EST Hayley Torres MD POINT OF CARE TEST O GILDA Performing Organization Address City/[facility]/ZIP Co de Phone Number [facility] [place] [address] * (ABNORMAL) POC, GLUCOSE (10/07/2024 10:58 AM [...] CARE TEST O RDERAHERNANDEZ Performing Organization Address [facility] Co de Phone Number [facility] [place] [address] * (ABNORMAL) POC, GLUCOSE (10/07/2024 7:42 AM [...] CARE TEST O GILDA Performing Organization Address [facility] Co de Phone Number [facility] [place] [address] * POC, GLUCOSE (10/07/2024 3:58 AM EST) [...] RDERABLES [facility] [place] [address] * (ABNORMAL) CBC (with Diff) (10/07/2024 12:06 AM EST) White Blood Cell 11.27(H) 4.00 - 9.50 x10(3)/mc L 10/07/2024 12:19 AM [facility] Red Blood Cell 3.47(L) 4.58 - 5.54 x10(6)/mc L 10/07/2024 12:19 AM [facility] Hemoglobin 10.1(L) 13.7 - 16.5 g/dL 10/07/2024 12:19 AM [facility] Hematocrit 30.9(L) 40.5 - 48.5 % 10/07/2024 12:19 AM [facility] Mean Cell Volume 89.0 82.9 - 93.1 fL 10/07/2024 12:19 AM [facility] Mean Cell Hemoglobin 29.1 27.5 - 32.1 pg 10/07/2024 12:19 AM [facility] Mean Cell Hemoglobin Concentration 32.7 32.0 - 35.7 g/dL 10/07/2024 12:19 AM [facility] Platelet 789(H) 145 - 357 x10(3)/mc L 10/07/2024 12:19 AM [facility] Mean Platelet Volume 9.0 7.6 - 12.9 fL 10/07/2024 12:19 AM [facility] RDW Standard Deviation 45.7(H) 36.0 - 45.0 fL 10/07/2024 12:19 AM [facility] RDW coefficient of variation 14.3(H) 11.4 - 13.8 % 10/07/2024 12:19 AM [facility] NRBC% auto 0.0 % 10/07/2024 12:19 AM [facility] NRBC Absolute <0.01 <0.01 x10(3)/mc L 10/07/2024 12:19 AM [facility] Neutrophil % 62.9 % 10/07/2024 12:19 AM [facility] Neutrophil Absolute (ANC) - Automated 7.09(H) 1.70 - 6.10 x10(3)/mc L 10/07/2024 12:19 AM [facility] Lymph % 28.3 % 10/07/2024 12:19 AM [facility] Lymph Absolute 3.19 0.90 - 3.20 x10(3)/mc L 10/07/2024 12:19 AM [facility] Monocyte % 5.7 % 10/07/2024 12:19 AM [facility] Monocyte Absolute 0.64 0.30 - 0.90 x10(3)/mc L 10/07/2024 12:19 AM [facility] Eos % 1.5 % 10/07/2024 12:19 AM [facility] Eos Absolute 0.17 0.00 - 0.40 x10(3)/mc L 10/07/2024 12:19 AM [facility] Basophil % 0.7 % 10/07/2024 12:19 AM [facility] Baso Absolute 0.08 0.00 - 0.10 x10(3)/mc L 10/07/2024 12:19 AM [facility] Immature Gran % 0.9 % 12:19 AM [facility] Immature Gran Absolute 0.10(H) 0.00 - 0.04 x10(3)/mc L 10/07/2024 12:19 AM [facility] Blood VENOUS BLOOD SPECIMEN / Unknown Venipuncture / Unknown 10/07/2024 12:06 AM EST 10/07/2024 12:11 AM EST Hayley Torres MD HEMATOLOGY ORDERABLE S [facility] [place] [address] * (ABNORMAL) Basic Metabolic Panel (10/07/2024 12:06 AM EST) Glucose 145 65 - 199 mg/dL 10/07/2024 12:40 AM [facility] Comment:Glucose Concentratio n >=200 mg/dL plus symptoms is consistent with Diabetes Mellitus. Blood Urea Nitrogen 18 10 - 20 mg/dL 10/07/2024 12:40 AM [facility] Creatinine 0.61(L) 0.80 - 1.50 mg/dL 10/07/2024 12:40 AM [facility] Sodium 139 135 - 145 mMol/L 10/07/2024 12:40 AM [facility] Potassium 4.0 3.5 - 5.0 mMol/L 10/07/2024 12:40 AM [facility] Chloride 104 98 - 107 mMol/L 10/07/2024 12:40 AM [facility] Carbon Dioxide 25 22 - 31 mMol/L 10/07/2024 12:40 AM [facility] Anion Gap 10 5 - 15 mMol/L 10/07/2024 12:40 AM [facility] Calcium 9.0 8.5 - 10.5 mg/dL 10/07/2024 12:40 AM [facility] Est Glomerular Filtration Rate - Male 117 mL/min/1. 73 m?? 10/07/2024 12:40 AM [facility] Comment: This patient's estimated GFR [...] ORDERABLES [facility] [place] [address] * Phosphorus (10/07/2024 12:06 AM EST) Phosphorus 4.2 2.5 - 4.5 mg/dL 10/07/2024 12:40 AM EST [facility] Blood VENOUS BLOOD SPECIMEN / Unknown Venipuncture / Unknown 10/07/2024 12:06 AM EST 10/07/2024 12:11 AM EST Hayley Torres MD CHEMISTRY ORDERABLES Performing Organization Address City/[facility]/ZIP Co de Phone Number [facility] [place] [address] * Magnesium (10/07/2024 12:06 AM EST) Magnesium 0.85 0.69 - 1.07 mMol/L 10/07/2024 12:40 AM EST [facility] Blood VENOUS BLOOD SPECIMEN / Unknown Venipuncture / Unknown 10/07/2024 12:06 AM EST 10/07/2024 12:11 AM EST Hayley Torres MD CHEMISTRY ORDERABLES [facility] [place] [address] * POC, GLUCOSE (10/07/2024 12:04 AM EST) Glucometer, POC 149 65 - 199 mg/dL 10/07/2024 12:04 AM EST [facility] Comment:Supplemental ranges: <140 mg/dL before meals <180 mg/dL all other times of the day. Blood CAPILLARY BLOOD / Unknown 10/07/2024 12:04 AM EST 10/07/2024 12:05 AM EST Hayley Torres MD POINT OF CARE TEST O GILDA Performing Organization Address [facility] Co de Phone Number [facility] [place] [address] * POC, GLUCOSE (10/06/2024 7:24 PM EST) Glucometer, POC 151 65 - 199 mg/dL 10/06/2024 7:24 PM EST [facility] Comment:Supplemental ranges: <140 mg/dL before meals <180 mg/dL all other times of the day. Blood CAPILLARY BLOOD / Unknown 10/06/2024 7:24 PM EST 10/06/2024 7:24 PM EST Hayley Torres MD POINT OF CARE TEST O GILDA Performing Organization Address [facility] Co de Phone Number [facility] [place] [address] * POC, GLUCOSE (10/06/2024 5:32 PM EST) Glucometer, POC 126 65 - 199 mg/dL 10/06/2024 5:32 PM EST [facility] Comment:Supplemental ranges: <140 mg/dL before meals <180 mg/dL all other times of the day. Blood CAPILLARY BLOOD / Unknown 10/06/2024 5:32 PM EST 10/06/2024 5:32 PM EST Hayley Torres MD POINT OF CARE TEST O GILDA Performing Organization Address [facility] Co de Phone Number [facility] [place] [address] * XR PICC Placement Over 5 Years with Imaging Guidance (IV Team) (10/06/2024 3:04 PM EST) WORKSTATION ID [id number] RAD Anatomical Region Laterality Modality N/A Radio [...] coordinator that requested your imaging first. ? Electronically signed by: Charles Hamilton MD, [facility] ??([phone]), at 10/06/2024 3:43 PM Narrative 10/06/2024 3:43 [...] care coordinator that requested your imaging first. Electronically signed by: Charles Hamilton MD, [facility]([phone]), at 10/06/2024 3:43 PM Hayley Torres MD IMG FLUORO ORDERABLE S * Place PICC Line: Contact Vascular Access Page [phone] Extremity to exclude: No restrictions; Is PICC [...] to the planned procedure. Hand Hygiene: The traveling plant operator did perform hand hygiene prior to line insertion. Catheter type: PICC Lot number: [id number] Procedure Technique: Skin was prepped with chlorhexidine. [...] CARE TEST O GILDA Performing Organization Address [facility] Co de Phone Number [facility] [place] [address] * (ABNORMAL) POC, GLUCOSE (10/06/2024 7:34 AM [...] CARE TEST O RDERAHERNANDEZ Performing Organization Address City/[facility]/ZIP Co de Phone Number [facility] [place] [address] * POC, GLUCOSE (10/06/2024 3:29 AM EST) Pathologist [facility] Glucometer, POC 151 65 - 199 mg/dL 10/06/2024 3:29 AM EST [facility] Comment:Supplemental ranges: <140 mg/dL before meals <180 mg/dL all other times of the day. Blood CAPILLARY BLOOD / Unknown 10/06/2024 3:29 AM EST 10/06/2024 3:29 AM EST Hayley Torres MD POINT OF CARE TEST O RDERABLES Performing Organization Address [facility] de Phone Number [facility] [place] [address] * Vancomycin Level, Random (10/06/2024 12:03 AM EST) [facility] Vancomycin, Random 20.5 mg/L 2023 9:00 AM EST [facility] Comment:This level is for de termination of the patient's vancomycin jcha-cjcjl-kkt-curve (AUC) value. Contact the inpatient pharmacy for interpretation. Blood VENOUS BLOOD SPECIMEN / Unknown Venipuncture / Unknown 10/06/2024 12:03 AM EST 10/06/2024 12:15 AM EST Hayley Torres MD CHEMISTRY ORDERABLES Performing Organization Address [facility] Co de Phone Number [facility] [place] [address] * (ABNORMAL) CBC (with Diff) (10/06/2024 12:03 AM EST) [facility] White Blood Cell 12.26(H) 4.00 - 9.50 x10(3)/mc L 10/06/2024 12:19 AM EST [facility] Red Blood Cell 3.49(L) 4.58 - 5.54 x10(6)/mc L 10/06/2024 12:19 AM [facility] Hemoglobin 10.1(L) 13.7 - 16.5 g/dL 10/06/2024 12:19 AM [facility] Hematocrit 30.9(L) 40.5 - 48.5 % 10/06/2024 12:19 AM [facility] Mean Cell Volume 88.5 82.9 - 93.1 fL 10/06/2024 12:19 AM [facility] Mean Cell Hemoglobin 28.9 27.5 - 32.1 pg 10/06/2024 12:19 AM [facility] Mean Cell Hemoglobin Concentration 32.7 32.0 - 35.7 g/dL 10/06/2024 12:19 AM [facility] Platelet 772(H) 145 - 357 x10(3)/mc L 10/06/2024 12:19 AM [facility] Mean Platelet Volume 9.0 7.6 - 12.9 fL 10/06/2024 12:19 AM [facility] RDW Standard Deviation 46.0(H) 36.0 - 45.0 fL 10/06/2024 12:19 AM [facility] RDW coefficient of variation 14.5(H) 11.4 - 13.8 % 10/06/2024 12:19 AM [facility] NRBC% auto 0.0 % 10/06/2024 12:19 AM [facility] NRBC Absolute <0.01 <0.01 x10(3)/mc L 10/06/2024 12:19 AM [facility] Neutrophil % 66.7 % 10/06/2024 12:19 AM [facility] Neutrophil Absolute (ANC) - Automated 8.18(H) 1.70 - 6.10 x10(3)/mc L 10/06/2024 12:19 AM [facility] Lymph % 24.1 % 10/06/2024 12:19 AM [facility] Lymph Absolute 2.95 0.90 - 3.20 x10(3)/mc L 10/06/2024 12:19 AM [facility] Monocyte % 6.2 % 10/06/2024 12:19 AM [facility] Monocyte Absolute 0.76 0.30 - 0.90 x10(3)/mc L 10/06/2024 12:19 AM [facility] Eos % 1.3 % 10/06/2024 12:19 AM [facility] Eos Absolute 0.16 0.00 - 0.40 x10(3)/mc L 10/06/2024 12:19 AM [facility] Basophil % 0.5 % 10/06/2024 12:19 AM [facility] Baso Absolute 0.06 0.00 - 0.10 x10(3)/mc L 10/06/2024 12:19 AM [facility] Immature Gran % 1.2 % 12:19 AM [facility] Immature Gran Absolute 0.15(H) 0.00 - 0.04 x10(3)/mc L 10/06/2024 12:19 AM [facility] Blood VENOUS BLOOD SPECIMEN / Unknown Venipuncture / Unknown 10/06/2024 12:03 AM EST 10/06/2024 12:15 AM EST Hayley Torres MD HEMATOLOGY ORDERABLE S Performing Organization Address City/State/[facility] Co de Phone Number [facility] [place] [address] * Basic Metabolic Panel (10/06/2024 12:03 AM EST) Glucose 94 65 - 199 mg/dL 10/06/2024 12:44 AM [facility] Comment:Glucose Concentratio n >=200 mg/dL plus symptoms is consistent with Diabetes Mellitus. Blood Urea Nitrogen 17 10 - 20 mg/dL 10/06/2024 12:44 AM [facility] Creatinine 0.85 0.80 - 1.50 mg/dL 10/06/2024 12:44 AM EST [facility] Sodium 139 135 - 145 mMol/L 10/06/2024 12:44 AM [facility] Potassium 4.3 3.5 - 5.0 mMol/L 10/06/2024 12:44 AM [facility] Chloride 103 98 - 107 mMol/L 10/06/2024 12:44 AM [facility] Carbon Dioxide 22 22 - 31 mMol/L 10/06/2024 12:44 AM [facility] Anion Gap 14 5 - 15 mMol/L 10/06/2024 12:44 AM [facility] Calcium 8.8 8.5 - 10.5 mg/dL 10/06/2024 12:44 AM [facility] Est Glomerular Filtration Rate - Male 106 mL/min/1. 73 m?? 10/06/2024 12:44 AM [facility] Comment: This patient's estimated GFR [...] ORDERABLES [facility] [place] [address] * Phosphorus (10/06/2024 12:03 AM EST) Phosphorus 4.3 2.5 - 4.5 mg/dL 10/06/2024 12:44 AM EST [facility] Blood VENOUS BLOOD SPECIMEN / Unknown Venipuncture / Unknown 10/06/2024 12:03 AM EST 10/06/2024 12:15 AM EST Hayley Torres MD CHEMISTRY ORDERABLES Performing Organization Address City/[facility]/ZIP Co de Phone Number [facility] [place] [address] * Magnesium (10/06/2024 12:03 AM EST) Magnesium 0.83 0.69 - 1.07 mMol/L 10/06/2024 12:44 AM EST [facility] Blood VENOUS BLOOD SPECIMEN / Unknown Venipuncture / Unknown 10/06/2024 12:03 AM EST 10/06/2024 12:15 AM EST Hayley Torres MD CHEMISTRY ORDERABLES Performing Organization Address [facility] Co de Phone Number [facility] [place] [address] * POC, GLUCOSE (10/06/2024 12:02 AM EST) Glucometer, POC 98 65 - 199 mg/dL 10/06/2024 12:02 AM EST [facility] Comment:Supplemental ranges: <140 mg/dL before meals <180 mg/dL all other times of the day. Blood CAPILLARY BLOOD / Unknown 10/06/2024 12:02 AM EST 10/06/2024 12:02 AM EST Hayley Torres MD POINT OF CARE TEST O RDERABLES Performing Organization Address City/[facility] Co de Phone Number [facility] [place] [address] * POC, GLUCOSE (10/05/2024 7:22 PM EST) [...] GILDA [facility] [place] [address] * POC, GLUCOSE (10/05/2024 5:35 PM EST) Glucometer, POC 177 65 - 199 mg/dL 10/05/2024 5:35 PM EST [facility] Comment:Supplemental ranges: <140 mg/dL before meals <180 mg/dL all other times of the day. Blood CAPILLARY BLOOD / Unknown 10/05/2024 5:35 PM EST 10/05/2024 5:35 PM EST Hayley Torres MD POINT OF CARE TEST O GILDA Performing Organization Address City/[facility]/ZIP Co de Phone Number [facility] [place] [address] * POC, GLUCOSE (10/05/2024 3:57 PM EST) [...] GILDA [facility] [place] [address] * POC, GLUCOSE (10/05/2024 11:50 AM EST) [...] GILDA [facility] [place] [address] * POC, GLUCOSE (10/05/2024 7:51 AM EST) Glucometer, POC 114 65 - 199 mg/dL 10/05/2024 7:51 AM EST [facility] Comment:Supplemental ranges: <140 mg/dL before meals <180 mg/dL all other times of the day. Blood CAPILLARY BLOOD / Unknown 10/05/2024 7:51 AM EST 10/05/2024 7:51 AM EST Hayley Torres MD POINT OF CARE TEST O GILDA Performing Organization Address [facility] Co de Phone Number [facility] [place] [address] * POC, GLUCOSE (10/05/2024 4:18 AM EST) [...] GILDA [facility] [place] [address] * (ABNORMAL) CBC (with Diff) (10/04/2024 11:50 PM EST) White Blood Cell 12.73(H) 4.00 - 9.50 x10(3)/mc L 10/05/2024 12:10 AM [facility] Red Blood Cell 3.45(L) 4.58 - 5.54 x10(6)/mc L 10/05/2024 12:10 AM [facility] Hemoglobin 9.8(L) 13.7 - 16.5 g/dL 10/05/2024 12:10 AM [facility] Hematocrit 30.6(L) 40.5 - 48.5 % 10/05/2024 12:10 AM [facility] Mean Cell Volume 88.7 82.9 - 93.1 fL 10/05/2024 12:10 AM [facility] Mean Cell Hemoglobin 28.4 27.5 - 32.1 pg 10/05/2024 12:10 AM [facility] Mean Cell Hemoglobin Concentration 32.0 32.0 - 35.7 g/dL 10/05/2024 12:10 AM [facility] Platelet 709(H) 145 - 357 x10(3)/mc L 10/05/2024 12:10 AM [facility] Mean Platelet Volume 8.9 7.6 - 12.9 fL 10/05/2024 12:10 AM [facility] RDW Standard Deviation 45.4(H) 36.0 - 45.0 fL 10/05/2024 12:10 AM [facility] RDW coefficient of variation 14.3(H) 11.4 - 13.8 % 10/05/2024 12:10 AM [facility] NRBC% auto 0.0 % 10/05/2024 12:10 AM [facility] NRBC Absolute <0.01 <0.01 x10(3)/mc L 10/05/2024 12:10 AM [facility] Neutrophil % 68.5 % 10/05/2024 12:10 AM [facility] Neutrophil Absolute (ANC) - Automated 8.72(H) 1.70 - 6.10 x10(3)/mc L 10/05/2024 12:10 AM [facility] Lymph % 21.3 % 10/05/2024 12:10 AM [facility] Lymph Absolute 2.71 0.90 - 3.20 x10(3)/mc L 10/05/2024 12:10 AM [facility] Monocyte % 5.5 % 10/05/2024 12:10 AM [facility] Monocyte Absolute 0.70 0.30 - 0.90 x10(3)/mc L 10/05/2024 12:10 AM [facility] Eos % 1.6 % 10/05/2024 12:10 AM [facility] Eos Absolute 0.20 0.00 - 0.40 x10(3)/mc L 10/05/2024 12:10 AM [facility] Basophil % 0.5 % 10/05/2024 12:10 AM [facility] Baso Absolute 0.07 0.00 - 0.10 x10(3)/mc L 10/05/2024 12:10 AM [facility] Immature Gran % 2.6 % 12:10 AM [facility] Immature Gran Absolute 0.33(H) 0.00 - 0.04 x10(3)/mc L 10/05/2024 12:10 AM [facility] Blood VENOUS BLOOD SPECIMEN / Unknown Venipuncture / Unknown 10/04/2024 11:50 PM EST 10/05/2024 12:03 AM EST Hayley Torres MD HEMATOLOGY ORDERABLE S [facility] [place] [address] * (ABNORMAL) Basic Metabolic Panel (10/04/2024 11:50 PM EST) Glucose 104 65 - 199 mg/dL 10/05/2024 12:35 AM [facility] Comment:Glucose Concentratio n >=200 mg/dL plus symptoms is consistent with Diabetes Mellitus. Blood Urea Nitrogen 13 10 - 20 mg/dL 10/05/2024 12:35 AM [facility] Creatinine 0.55(L) 0.80 - 1.50 mg/dL 10/05/2024 12:35 AM [facility] Sodium 140 135 - 145 mMol/L 10/05/2024 12:35 AM [facility] Potassium 3.9 3.5 - 5.0 mMol/L 10/05/2024 12:35 AM [facility] Chloride 105 98 - 107 mMol/L 10/05/2024 12:35 AM [facility] Carbon Dioxide 24 22 - 31 mMol/L 10/05/2024 12:35 AM [facility] Anion Gap 11 5 - 15 mMol/L 10/05/2024 12:35 AM [facility] Calcium 9.0 8.5 - 10.5 mg/dL 10/05/2024 12:35 AM [facility] Est Glomerular Filtration Rate - Male 121 mL/min/1. 73 m?? 10/05/2024 12:35 AM [facility] Comment: This patient's estimated GFR [...] Torres MD CHEMISTRY ORDERABLES Performing Organization Address City/[facility]/ZIP Co de Phone Number [facility] [place] [address] * Phosphorus (10/04/2024 11:50 PM EST) Phosphorus 4.2 2.5 - 4.5 mg/dL 10/05/2024 12:35 AM EST [facility] Blood VENOUS BLOOD SPECIMEN / Unknown Venipuncture / Unknown 10/04/2024 11:50 PM EST 10/05/2024 12:03 AM EST Hayley Torres MD CHEMISTRY ORDERABLES Performing Organization Address City/[facility] Co de Phone Number [facility] [place] [address] * Magnesium (10/04/2024 11:50 PM EST) Magnesium 0.89 0.69 - 1.07 mMol/L 10/05/2024 12:35 AM EST [facility] Blood VENOUS BLOOD SPECIMEN / Unknown Venipuncture / Unknown 10/04/2024 11:50 PM EST 10/05/2024 12:03 AM EST Hayley Torres MD CHEMISTRY ORDERABLES Performing Organization Address City/[facility]/ZIP Co de Phone Number [facility] [place] [address] * POC, GLUCOSE (10/04/2024 11:36 PM EST) Glucometer, POC 121 65 - 199 mg/dL 10/04/2024 11:36 PM EST [facility] Comment:Supplemental ranges: <140 mg/dL before meals <180 mg/dL all other times of the day. Blood CAPILLARY BLOOD / Unknown 10/04/2024 11:36 PM EST 10/04/2024 11:36 PM EST Hayley Torres MD POINT OF CARE TEST O RDTYESHA Performing Organization Address [facility] Co de Phone Number [facility] [place] [address] * POC, GLUCOSE (10/04/2024 7:32 PM EST) Glucometer, POC 163 65 - 199 mg/dL 10/04/2024 7:32 PM EST [facility] Comment:Supplemental ranges: <140 mg/dL before meals <180 mg/dL all other times of the day. Blood CAPILLARY BLOOD / Unknown 10/04/2024 7:32 PM EST 10/04/2024 7:32 PM EST Hayley Torres MD POINT OF CARE TEST O GILDA Performing Organization Address [facility] de Phone Number [facility] [place] [address] * EKG 12 Lead (10/04/2024 7:14 PM EST) Ventricular rate 81 BPM MUSE SYSTEM Atrial Rate 81 BPM MUSE SYSTEM P-R Interval 174 ms MUSE SYSTEM QRS Duration 112 ms MUSE SYSTEM Q-T Interval 422 ms MUSE SYSTEM QTC Calculated (Bezet) 490 ms MUSE SYSTEM Calculated P [place] 34 degrees MUSE SYSTEM Calculated R [place] 11 degrees MUSE SYSTEM Calculated T [place] 59 degrees MUSE SYSTEM INTERPRETATION Normal sinus rhythm Cannot rule out Inferior infarct , age undetermined Nonspecific T wave abnormality Borderline ECG When compared with ECG of 29-MAY-2024 14:51, Nonspecific T wave abnormality now evident in Lateral leads Confirmed by MD Robert, Deandre Guadarrama ([id number]) on 10/05/2024 3:35:42 PM MUSE SYSTEM 10/04/2024 7:14 PM EST 10/05/2024 3:35 PM EST Hayley Torres MD ECG ORDERABLES Performing Organization Address [facility] Co de Phone Number MUSE [...] CARE TEST O GILDA Performing Organization Address City/[facility]/ZIP Co de Phone Number [facility] [place] [address] * POC, GLUCOSE (10/04/2024 4:49 PM EST) Glucometer, POC 70 65 - 199 mg/dL 10/04/2024 4:50 PM EST [facility] Comment:Supplemental ranges: <140 mg/dL before meals <180 mg/dL all other times of the day. Blood CAPILLARY BLOOD / Unknown 10/04/2024 4:49 PM EST 10/04/2024 4:50 PM EST Hayley Torres MD POINT OF CARE TEST O GILDA Performing Organization Address City/[facility]/ZIP Co de Phone Number [facility] [place] [address] * POC, GLUCOSE (10/04/2024 11:49 AM EST) [...] GILDA [facility] [place] [address] * Vancomycin, trough (10/04/2024 7:53 AM EST) Vancomycin, Trough 19.8 10.0 - 20.0 mg/L 10/04/2024 9:16 AM EST [facility] Comment: Varies according to infection source. Blood VENOUS BLOOD SPECIMEN / Unknown Venipuncture / Unknown 10/04/2024 7:53 AM EST 10/04/2024 8:11 AM EST Hayley Torres MD CHEMISTRY ORDERABLES Performing Organization Address City/[facility]/ZIP Co de Phone Number [facility] [place] [address] * POC, GLUCOSE (10/04/2024 7:51 AM EST) [...] RDERAHERNANDEZ [facility] [place] [address] * POC, GLUCOSE (10/04/2024 3:53 AM EST) [...] RDERABLES [facility] [place] [address] * (ABNORMAL) CBC (with Diff) (10/04/2024 12:08 AM EST) White Blood Cell 12.58(H) 4.00 - 9.50 x10(3)/mc L 10/04/2024 12:51 AM [facility] Red Blood Cell 3.28(L) 4.58 - 5.54 x10(6)/mc L 10/04/2024 12:51 AM [facility] Hemoglobin 9.4(L) 13.7 - 16.5 g/dL 10/04/2024 12:51 AM [facility] Hematocrit 28.8(L) 40.5 - 48.5 % 10/04/2024 12:51 AM [facility] Mean Cell Volume 87.8 82.9 - 93.1 fL 10/04/2024 12:51 AM [facility] Mean Cell Hemoglobin 28.7 27.5 - 32.1 pg 10/04/2024 12:51 AM [facility] Mean Cell Hemoglobin Concentration 32.6 32.0 - 35.7 g/dL 10/04/2024 12:51 AM [facility] Platelet 670(H) 145 - 357 x10(3)/mc L 10/04/2024 12:51 AM [facility] Mean Platelet Volume 9.1 7.6 - 12.9 fL 10/04/2024 12:51 AM [facility] RDW Standard Deviation 44.8 36.0 - 45.0 fL 10/04/2024 12:51 AM [facility] RDW coefficient of variation 13.9(H) 11.4 - 13.8 % 10/04/2024 12:51 AM [facility] NRBC% auto 0.0 % 10/04/2024 12:51 AM [facility] NRBC Absolute <0.01 <0.01 x10(3)/mc L 10/04/2024 12:51 AM [facility] Neutrophil % 60.3 % 10/04/2024 12:51 AM [facility] Neutrophil Absolute (ANC) - Automated 7.57(H) 1.70 - 6.10 x10(3)/mc L 10/04/2024 12:51 AM [facility] Lymph % 27.4 % 10/04/2024 12:51 AM [facility] Lymph Absolute 3.45(H) 0.90 - 3.20 x10(3)/mc L 10/04/2024 12:51 AM [facility] Monocyte % 5.4 % 10/04/2024 12:51 AM [facility] Monocyte Absolute 0.68 0.30 - 0.90 x10(3)/mc L 10/04/2024 12:51 AM [facility] Eos % 1.5 % 10/04/2024 12:51 AM [facility] Eos Absolute 0.19 0.00 - 0.40 x10(3)/mc L 10/04/2024 12:51 AM [facility] Basophil % 0.6 % 10/04/2024 12:51 AM [facility] Baso Absolute 0.08 0.00 - 0.10 x10(3)/mc L 10/04/2024 12:51 AM [facility] Immature Gran % 4.8 % 12:51 AM [facility] Immature Gran Absolute 0.61(H) 0.00 - 0.04 x10(3)/mc L 10/04/2024 12:51 AM [facility] Blood VENOUS BLOOD SPECIMEN / Unknown Venipuncture / Unknown 10/04/2024 12:08 AM EST 10/04/2024 12:15 AM EST Hayley Torres MD HEMATOLOGY ORDERABLE S [facility] [place] [address] * (ABNORMAL) Basic Metabolic Panel (10/04/2024 12:08 AM EST) Glucose 135 65 - 199 mg/dL 10/04/2024 12:53 AM [facility] Comment:Glucose Concentratio n >=200 mg/dL plus symptoms is consistent with Diabetes Mellitus. Blood Urea Nitrogen 19 10 - 20 mg/dL 10/04/2024 12:53 AM [facility] Creatinine 0.56(L) 0.80 - 1.50 mg/dL 10/04/2024 12:53 AM [facility] Sodium 138 135 - 145 mMol/L 10/04/2024 12:53 AM [facility] Potassium 4.4 3.5 - 5.0 mMol/L 10/04/2024 12:53 AM [facility] Chloride 105 98 - 107 mMol/L 10/04/2024 12:53 AM [facility] Carbon Dioxide 24 22 - 31 mMol/L 10/04/2024 12:53 AM [facility] Anion Gap 9 5 - 15 mMol/L 10/04/2024 12:53 AM [facility] Calcium 8.7 8.5 - 10.5 mg/dL 10/04/2024 12:53 AM [facility] Est Glomerular Filtration Rate - Male 120 mL/min/1. 73 m?? 10/04/2024 12:53 AM [facility] Comment: This patient's estimated GFR [...] ORDERABLES [facility] [place] [address] * Phosphorus (10/04/2024 12:08 AM EST) Phosphorus 3.7 2.5 - 4.5 mg/dL 10/04/2024 12:53 AM EST [facility] Blood VENOUS BLOOD SPECIMEN / Unknown Venipuncture / Unknown 10/04/2024 12:08 AM EST 10/04/2024 12:15 AM EST Hayley Torres MD CHEMISTRY ORDERABLES Performing Organization Address City/[facility]/ZIP Co de Phone Number [facility] [place] [address] * Magnesium (10/04/2024 12:08 AM EST) Magnesium 0.89 0.69 - 1.07 mMol/L 10/04/2024 12:53 AM EST [facility] Blood VENOUS BLOOD SPECIMEN / Unknown Venipuncture / Unknown 10/04/2024 12:08 AM EST 10/04/2024 12:15 AM EST Hayley Torres MD CHEMISTRY ORDERABLES [facility] [place] [address] * POC, GLUCOSE (10/04/2024 12:01 AM EST) Glucometer, POC 132 65 - 199 mg/dL 10/04/2024 12:02 AM EST [facility] Comment:Supplemental ranges: <140 mg/dL before meals <180 mg/dL all other times of the day. Blood CAPILLARY BLOOD / Unknown 10/04/2024 12:01 AM EST 10/04/2024 12:02 AM EST Hayley Torres MD POINT OF CARE TEST O GILDA Performing Organization Address City/[facility]/ZIP Co de Phone Number [facility] [place] [address] * POC, GLUCOSE (10/03/2024 7:56 PM EST) Glucometer, POC 123 65 - 199 mg/dL 10/03/2024 7:56 PM EST [facility] Comment:Supplemental ranges: <140 mg/dL before meals <180 mg/dL all other times of the day. Blood CAPILLARY BLOOD / Unknown 10/03/2024 7:56 PM EST 10/03/2024 7:57 PM EST Hayley Torres MD POINT OF CARE TEST O GILDA Performing Organization Address [facility] Co de Phone Number [facility] [place] [address] * POC, GLUCOSE (10/03/2024 5:29 PM EST) Glucometer, POC 182 65 - 199 mg/dL 10/03/2024 5:30 PM EST [facility] Comment:Supplemental ranges: <140 mg/dL before meals <180 mg/dL all other times of the day. Blood CAPILLARY BLOOD / Unknown 10/03/2024 5:29 PM EST 10/03/2024 5:30 PM EST Hayley Torres MD POINT OF CARE TEST O GILDA Performing Organization Address City/[facility]/ZIP Co de Phone Number [facility] [place] [address] * POC, GLUCOSE (10/03/2024 12:54 PM EST) Glucometer, POC 128 65 - 199 mg/dL 10/03/2024 12:54 PM EST [facility] Comment:Supplemental ranges: <140 mg/dL before meals <180 mg/dL all other times of the day. Blood CAPILLARY BLOOD / Unknown 10/03/2024 12:54 PM EST 10/03/2024 12:54 PM EST Hayley Torres MD POINT OF CARE TEST O RDTYESHA Performing Organization Address City/[facility]/ZIP Co de Phone Number [facility] [place] [address] * POC, GLUCOSE (10/03/2024 7:59 AM EST) Glucometer, POC 115 65 - 199 mg/dL 10/03/2024 7:59 AM EST [facility] Comment:Supplemental ranges: <140 mg/dL before meals <180 mg/dL all other times of the day. Blood CAPILLARY BLOOD / Unknown 10/03/2024 7:59 AM EST 10/03/2024 7:59 AM EST Hayley Torres MD POINT OF CARE TEST O GILDA Performing Organization Address [facility] Co de Phone Number [facility] [place] [address] * POC, GLUCOSE (10/03/2024 5:32 AM EST) Glucometer, POC 119 65 - 199 mg/dL 10/03/2024 5:32 AM EST [facility] Comment:Supplemental ranges: <140 mg/dL before meals <180 mg/dL all other times of the day. Blood CAPILLARY BLOOD / Unknown 10/03/2024 5:32 AM EST 10/03/2024 5:32 AM EST Hayley Torres MD POINT OF CARE TEST O GILDA Performing Organization Address City/[facility]/ZIP Co de Phone Number [facility] [place] [address] * POC, GLUCOSE (10/03/2024 4:16 AM EST) Glucometer, POC 152 65 - 199 mg/dL 10/03/2024 4:17 AM EST [facility] Comment:Supplemental ranges: <140 mg/dL before meals <180 mg/dL all other times of the day. Blood CAPILLARY BLOOD / Unknown 10/03/2024 4:16 AM EST 10/03/2024 4:17 AM EST Hayley Torres MD POINT OF CARE TEST O GILDA Performing Organization Address City/[facility]/ZIP Co de Phone Number [facility] [place] [address] * (ABNORMAL) POC, GLUCOSE (10/03/2024 2:02 AM [...] CARE TEST O GILDA Performing Organization Address City/[facility]/ZIP Co de Phone Number [facility] [place] [address] * (ABNORMAL) CBC (with Diff) (10/03/2024 12:27 AM EST) [facility] White Blood Cell 15.33(H) 4.00 - 9.50 x10(3)/mc L 10/03/2024 12:51 AM EST [facility] Red Blood Cell 3.59(L) 4.58 - 5.54 x10(6)/mc L 10/03/2024 12:51 AM EST [facility] Hemoglobin 10.4(L) 13.7 - 16.5 g/dL 10/03/2024 12:51 AM EST [facility] Hematocrit 31.2(L) 40.5 - 48.5 % 10/03/2024 12:51 AM [facility] Mean Cell Volume 86.9 82.9 - 93.1 fL 10/03/2024 12:51 AM [facility] Mean Cell Hemoglobin 29.0 27.5 - 32.1 pg 10/03/2024 12:51 AM [facility] Mean Cell Hemoglobin Concentration 33.3 32.0 - 35.7 g/dL 10/03/2024 12:51 AM [facility] Platelet 693(H) 145 - 357 x10(3)/mc L 10/03/2024 12:51 AM [facility] Mean Platelet Volume 9.2 7.6 - 12.9 fL 10/03/2024 12:51 AM [facility] RDW Standard Deviation 42.4 36.0 - 45.0 fL 10/03/2024 12:51 AM [facility] RDW coefficient of variation 13.6 11.4 - 13.8 % 10/03/2024 12:51 AM [facility] NRBC% auto 0.0 % 10/03/2024 12:51 AM [facility] NRBC Absolute <0.01 <0.01 x10(3)/mc L 10/03/2024 12:51 AM [facility] Neutrophil % 77.1 % 10/03/2024 12:51 AM [facility] Neutrophil Absolute (ANC) - Automated 11.83(H) 1.70 - 6.10 x10(3)/mc L 10/03/2024 12:51 AM [facility] Lymph % 13.4 % 10/03/2024 12:51 AM [facility] Lymph Absolute 2.05 0.90 - 3.20 x10(3)/mc L 10/03/2024 12:51 AM [facility] Monocyte % 2.9 % 10/03/2024 12:51 AM [facility] Monocyte Absolute 0.45 0.30 - 0.90 x10(3)/mc L 10/03/2024 12:51 AM EST [facility] Eos % 0.5 % 10/03/2024 12:51 AM EST [facility] Eos Absolute 0.07 0.00 - 0.40 x10(3)/mc L 10/03/2024 12:51 AM EST [facility] Basophil % 0.4 % 10/03/2024 12:51 AM [facility] Baso Absolute 0.06 0.00 - 0.10 x10(3)/mc L 10/03/2024 12:51 AM [facility] Immature Gran % 5.7 % 12:51 AM [facility] Immature Gran Absolute 0.87(H) 0.00 - 0.04 x10(3)/mc L 10/03/2024 12:51 AM [facility] Blood VENOUS BLOOD SPECIMEN / Unknown Venipuncture / Unknown 10/03/2024 12:27 AM EST 10/03/2024 12:47 AM EST Hayley Torres MD HEMATOLOGY ORDERABLE S [facility] [place] [address] * (ABNORMAL) Basic Metabolic Panel (10/03/2024 12:27 AM EST) Glucose 208(H) 65 - 199 mg/dL 10/03/2024 1:14 AM EST [facility] Comment:Glucose Concentratio n >=200 mg/dL plus symptoms is consistent with Diabetes Mellitus. Blood Urea Nitrogen 15 10 - 20 mg/dL 10/03/2024 1:14 AM [facility] Creatinine 0.51(L) 0.80 - 1.50 mg/dL 10/03/2024 1:14 AM [facility] Sodium 136 135 - 145 mMol/L 10/03/2024 1:14 AM [facility] Potassium 4.1 3.5 - 5.0 mMol/L 10/03/2024 1:14 AM [facility] Chloride 103 98 - 107 mMol/L 10/03/2024 1:14 AM [facility] Carbon Dioxide 20(L) 22 - 31 mMol/L 10/03/2024 1:14 AM [facility] Anion Gap 13 5 - 15 mMol/L 10/03/2024 1:14 AM [facility] Calcium 8.4(L) 8.5 - 10.5 mg/dL 10/03/2024 1:14 AM [facility] Est Glomerular Filtration Rate - Male 124 mL/min/1. 73 m?? 10/03/2024 1:14 AM [facility] Comment: This patient's estimated GFR [...] ORDERABLES [facility] [place] [address] * Phosphorus (10/03/2024 12:27 AM EST) Phosphorus 3.5 2.5 - 4.5 mg/dL 10/03/2024 1:14 AM [facility] Blood VENOUS BLOOD SPECIMEN / Unknown Venipuncture / Unknown 10/03/2024 12:27 AM EST 10/03/2024 12:47 AM EST Hayley Torres MD CHEMISTRY ORDERABLES Performing Organization Address City/[facility] Co de Phone Number [facility] [place] [address] * Magnesium (10/03/2024 12:27 AM EST) Magnesium 0.83 0.69 - 1.07 mMol/L 10/03/2024 1:14 AM EST [facility] Blood VENOUS BLOOD SPECIMEN / Unknown Venipuncture / Unknown 10/03/2024 12:27 AM EST 10/03/2024 12:47 AM EST Hayley Torres MD CHEMISTRY ORDERABLES Performing Organization Address [facility] Co de Phone Number [facility] [place] [address] * (ABNORMAL) POC, GLUCOSE (10/03/2024 12:13 AM [...] CARE TEST O RDERABLES Performing Organization Address City/[facility] Co de Phone Number [facility] [place] [address] * POC, GLUCOSE (10/02/2024 8:17 PM EST) [...] GILDA [facility] [place] [address] * POC, GLUCOSE (10/02/2024 6:22 PM EST) Glucometer, POC 172 65 - 199 mg/dL 10/02/2024 6:22 PM EST [facility] Comment:Supplemental ranges: <140 mg/dL before meals <180 mg/dL all other times of the day. Blood CAPILLARY BLOOD / Unknown 10/02/2024 6:22 PM EST 10/02/2024 6:22 PM EST Hayley Torres MD POINT OF CARE TEST O GILDA Performing Organization Address [facility] Co de Phone Number [facility] [place] [address] * POC, GLUCOSE (10/02/2024 5:01 PM EST) Glucometer, POC 104 65 - 199 mg/dL 10/02/2024 5:01 PM EST [facility] Comment:Supplemental ranges: <140 mg/dL before meals <180 mg/dL all other times of the day. Blood CAPILLARY BLOOD / Unknown 10/02/2024 5:01 PM EST 10/02/2024 5:01 PM EST Hayley Torres MD POINT OF CARE TEST O GILDA Performing Organization Address City/[facility] Co de Phone Number [facility] [place] [address] * POC, GLUCOSE (10/02/2024 3:05 PM EST) [...] GILDA [facility] [place] [address] * POC, GLUCOSE (10/02/2024 11:12 AM EST) Glucometer, POC 146 65 - 199 mg/dL 10/02/2024 11:12 AM EST [facility] Comment:Supplemental ranges: <140 mg/dL before meals <180 mg/dL all other times of the day. Blood CAPILLARY BLOOD / Unknown 10/02/2024 11:12 AM EST 10/02/2024 11:12 AM EST Hayley Torres MD POINT OF CARE TEST O GILDA Performing Organization Address City/[facility]/ZIP Co de Phone Number [facility] [place] [address] * POC, GLUCOSE (10/02/2024 8:12 AM EST) [...] GILDA [facility] [place] [address] * POC, GLUCOSE (10/02/2024 4:19 AM EST) [...] RDERABLES [facility] [place] [address] * Phosphorus (10/02/2024 12:41 AM EST) Pathologist [facility] Phosphorus 4.1 2.5 - 4.5 mg/dL 10/02/2024 1:21 AM EST [facility] Blood VENOUS BLOOD SPECIMEN / Unknown Venipuncture / Unknown 10/02/2024 12:41 AM EST 10/02/2024 12:45 AM EST Hayley Torres MD CHEMISTRY ORDERABLES Performing Organization Address [facility] Co de Phone Number [facility] [place] [address] * Magnesium (10/02/2024 12:41 AM EST) Magnesium 0.85 0.69 - 1.07 mMol/L 10/02/2024 1:21 AM EST [facility] Blood VENOUS BLOOD SPECIMEN / Unknown Venipuncture / Unknown 10/02/2024 12:41 AM EST 10/02/2024 12:45 AM EST Hayley Torres MD CHEMISTRY ORDERABLES Performing Organization Address City/[facility] Co de Phone Number [facility] [place] [address] * (ABNORMAL) Basic Metabolic Panel (10/02/2024 12:41 AM EST) Glucose 113 65 - 199 mg/dL 10/02/2024 1:21 AM [facility] Comment:Glucose Concentratio n >=200 mg/dL plus symptoms is consistent with Diabetes Mellitus. Blood Urea Nitrogen 11 10 - 20 mg/dL 10/02/2024 1:21 AM [facility] Creatinine 0.49(L) 0.80 - 1.50 mg/dL 10/02/2024 1:21 AM [facility] Sodium 138 135 - 145 mMol/L 10/02/2024 1:21 AM [facility] Potassium 3.9 3.5 - 5.0 mMol/L 10/02/2024 1:21 AM [facility] Chloride 105 98 - 107 mMol/L 10/02/2024 1:21 AM [facility] Carbon Dioxide 23 22 - 31 mMol/L 10/02/2024 1:21 AM [facility] Anion Gap 10 5 - 15 mMol/L 10/02/2024 1:21 AM [facility] Calcium 8.2(L) 8.5 - 10.5 mg/dL 10/02/2024 1:21 AM [facility] Est Glomerular Filtration Rate - Male 125 mL/min/1. 73 m?? 10/02/2024 1:21 AM [facility] Comment: This patient's estimated GFR [...] ORDERABLES [facility] [place] [address] * (ABNORMAL) CBC (with Diff) (10/02/2024 12:41 AM EST) White Blood Cell 10.93(H) 4.00 - 9.50 x10(3)/mc L 10/02/2024 1:04 AM [facility] Red Blood Cell 3.30(L) 4.58 - 5.54 x10(6)/mc L 10/02/2024 1:04 AM [facility] Hemoglobin 9.6(L) 13.7 - 16.5 g/dL 10/02/2024 1:04 AM [facility] Hematocrit 28.6(L) 40.5 - 48.5 % 10/02/2024 1:04 AM [facility] Mean Cell Volume 86.7 82.9 - 93.1 fL 10/02/2024 1:04 AM [facility] Mean Cell Hemoglobin 29.1 27.5 - 32.1 pg 10/02/2024 1:04 AM [facility] Mean Cell Hemoglobin Concentration 33.6 32.0 - 35.7 g/dL 10/02/2024 1:04 AM [facility] Platelet 546(H) 145 - 357 x10(3)/mc L 10/02/2024 1:04 AM [facility] Mean Platelet Volume 9.0 7.6 - 12.9 fL 10/02/2024 1:04 AM [facility] RDW Standard Deviation 42.7 36.0 - 45.0 fL 10/02/2024 1:04 AM [facility] RDW coefficient of variation 13.3 11.4 - 13.8 % 10/02/2024 1:04 AM [facility] NRBC% auto 0.0 % 10/02/2024 1:04 AM [facility] NRBC Absolute <0.01 <0.01 x10(3)/mc L 10/02/2024 1:04 AM [facility] Neutrophil % 58.4 % 10/02/2024 1:04 AM [facility] Neutrophil Absolute (ANC) - Automated 6.38(H) 1.70 - 6.10 x10(3)/mc L 10/02/2024 1:04 AM [facility] Lymph % 23.9 % 10/02/2024 1:04 AM [facility] Lymph Absolute 2.61 0.90 - 3.20 x10(3)/mc L 10/02/2024 1:04 AM [facility] Monocyte % 5.6 % 10/02/2024 1:04 AM [facility] Monocyte Absolute 0.61 0.30 - 0.90 x10(3)/mc L 10/02/2024 1:04 AM [facility] Eos % 1.6 % 10/02/2024 1:04 AM [facility] Eos Absolute 0.18 0.00 - 0.40 x10(3)/mc L 10/02/2024 1:04 AM [facility] Basophil % 0.8 % 10/02/2024 1:04 AM [facility] Baso Absolute 0.09 0.00 - 0.10 x10(3)/mc L 10/02/2024 1:04 AM [facility] Immature Gran % 9.7 % 1:04 AM [facility] Immature Gran Absolute 1.06(H) 0.00 - 0.04 x10(3)/mc L 10/02/2024 1:04 AM [facility] Blood VENOUS BLOOD SPECIMEN / Unknown Venipuncture / Unknown 10/02/2024 12:41 AM EST 10/02/2024 12:45 AM EST Hayley Torres MD HEMATOLOGY ORDERABLE S Performing Organization Address [facility] Co de Phone Number [facility] [place] [address] * POC, GLUCOSE (10/02/2024 12:40 AM EST) Glucometer, POC 116 65 - 199 mg/dL 10/02/2024 12:41 AM EST [facility] Comment:Supplemental ranges: <140 mg/dL before meals <180 mg/dL all other times of the day. Blood CAPILLARY BLOOD / Unknown 10/02/2024 12:40 AM EST 10/02/2024 12:41 AM EST Hayley Torres MD POINT OF CARE TEST O GILDA Performing Organization Address [facility] Co de Phone Number [facility] [place] [address] * POC, GLUCOSE (10/01/2024 8:11 PM EST) Glucometer, POC 123 65 - 199 mg/dL 10/01/2024 8:11 PM EST [facility] Comment:Supplemental ranges: <140 mg/dL before meals <180 mg/dL all other times of the day. Blood CAPILLARY BLOOD / Unknown 10/01/2024 8:11 PM EST 10/01/2024 8:11 PM EST Hayley Torres MD POINT OF CARE TEST O GILDA Performing Organization Address City/[facility] Co de Phone Number [facility] [place] [address] * POC, GLUCOSE (10/01/2024 6:00 PM EST) Glucometer, POC 112 65 - 199 mg/dL 10/01/2024 6:00 PM EST [facility] Comment:Supplemental ranges: <140 mg/dL before meals <180 mg/dL all other times of the day. Blood CAPILLARY BLOOD / Unknown 10/01/2024 6:00 PM EST 10/01/2024 6:00 PM EST Hayley Torres MD POINT OF CARE TEST O GILDA Performing Organization Address City/[facility]/ZIP Co de Phone Number [facility] [place] [address] * POC, GLUCOSE (10/01/2024 3:53 PM EST) Glucometer, POC 97 65 - 199 mg/dL 10/01/2024 3:53 PM EST [facility] Comment:Supplemental ranges: <140 mg/dL before meals <180 mg/dL all other times of the day. Blood CAPILLARY BLOOD / Unknown 10/01/2024 3:53 PM EST 10/01/2024 3:53 PM EST Hayley Torres MD POINT OF CARE TEST O GILDA Performing Organization Address [facility] Co de Phone Number [facility] [place] [address] * POC, GLUCOSE (10/01/2024 2:25 PM EST) Glucometer, POC 117 65 - 199 mg/dL 10/01/2024 2:25 PM EST [facility] Comment:Supplemental ranges: <140 mg/dL before meals <180 mg/dL all other times of the day. Blood CAPILLARY BLOOD / Unknown 10/01/2024 2:25 PM EST 10/01/2024 2:25 PM EST Hayley Torres MD POINT OF CARE TEST O GILDA Performing Organization Address City/[facility]/ZIP Co de Phone Number [facility] [place] [address] * POC, GLUCOSE (10/01/2024 11:43 AM EST) Glucometer, POC 174 65 - 199 mg/dL 10/01/2024 11:43 AM EST [facility] Comment:Supplemental ranges: <140 mg/dL before meals <180 mg/dL all other times of the day. Blood CAPILLARY BLOOD / Unknown 10/01/2024 11:43 AM EST 10/01/2024 11:43 AM EST Hayley Torres MD POINT OF CARE TEST O GILDA Performing Organization Address City/[facility] Co de Phone Number [facility] [place] [address] * POC, GLUCOSE (10/01/2024 9:43 AM EST) Glucometer, POC 191 65 - 199 mg/dL 10/01/2024 9:43 AM EST [facility] Comment:Supplemental ranges: <140 mg/dL before meals <180 mg/dL all other times of the day. Blood CAPILLARY BLOOD / Unknown 10/01/2024 9:43 AM EST 10/01/2024 9:43 AM EST Hayley Torres MD POINT OF CARE TEST O GILDA Performing Organization Address [facility] Co de Phone Number [facility] [place] [address] * POC, GLUCOSE (10/01/2024 7:48 AM EST) Glucometer, POC 151 65 - 199 mg/dL 10/01/2024 7:48 AM EST [facility] Comment:Supplemental ranges: <140 mg/dL before meals <180 mg/dL all other times of the day. Blood CAPILLARY BLOOD / Unknown 10/01/2024 7:48 AM EST 10/01/2024 7:48 AM EST Hayley Torres MD POINT OF CARE TEST O GILDA Performing Organization Address City/[facility] Co de Phone Number [facility] [place] [address] * POC, GLUCOSE (10/01/2024 4:25 AM EST) Glucometer, POC 133 65 - 199 mg/dL 10/01/2024 4:26 AM EST [facility] Comment:Supplemental ranges: <140 mg/dL before meals <180 mg/dL all other times of the day. Blood CAPILLARY BLOOD / Unknown 10/01/2024 4:25 AM EST 10/01/2024 4:26 AM EST Hayley Torres MD POINT OF CARE TEST O RDERABLES Performing Organization Address City/[facility]/ZIP Co de Phone Number [facility] [place] [address] * Phosphorus (10/01/2024 2:02 AM EST) Pathologist [facility] Phosphorus 3.9 2.5 - 4.5 mg/dL 10/01/2024 7:16 AM EST [facility] Blood VENOUS BLOOD SPECIMEN / Unknown Venipuncture / Unknown 10/01/2024 2:02 AM EST 10/01/2024 2:10 AM EST Hayley Torres MD CHEMISTRY ORDERABLES Performing Organization Address [facility] Co nh Phone Number [facility] [place] [address] * (ABNORMAL) Scan, Peripheral Blood (10/01/2024 2:02 AM EST) Pathologist [facility] RBC Morphology Abnormal 10/01/2024 2:55 AM [...] MD HEMATOLOGY ORDERABLE S Performing Organization Address City/[facility]/ZIP Co de Phone Number [facility] [place] [address] * Magnesium (10/01/2024 2:02 AM EST) Pathologist [facility] Magnesium 0.79 0.69 - 1.07 mMol/L 10/01/2024 2:41 AM [facility] Blood VENOUS BLOOD SPECIMEN / Unknown Venipuncture / Unknown 10/01/2024 2:02 AM EST 10/01/2024 2:10 AM EST Hayley Torres MD CHEMISTRY ORDERABLES [facility] [place] [address] * (ABNORMAL) Basic Metabolic Panel (10/01/2024 2:02 AM EST) [facility] Glucose 122 65 - 199 mg/dL 10/01/2024 2:41 AM [facility] Comment:Glucose Concentratio n >=200 mg/dL plus symptoms is consistent with Diabetes Mellitus. Blood Urea Nitrogen 10 10 - 20 mg/dL 10/01/2024 2:41 AM [facility] Creatinine 0.47(L) 0.80 - 1.50 mg/dL 10/01/2024 2:41 AM [facility] Sodium 138 135 - 145 mMol/L 10/01/2024 2:41 AM [facility] Potassium 3.9 3.5 - 5.0 mMol/L 10/01/2024 2:41 AM [facility] Chloride 105 98 - 107 mMol/L 10/01/2024 2:41 AM [facility] Carbon Dioxide 24 22 - 31 mMol/L 10/01/2024 2:41 AM [facility] Anion Gap 9 5 - 15 mMol/L 10/01/2024 2:41 AM [facility] Calcium 8.1(L) 8.5 - 10.5 mg/dL 10/01/2024 2:41 AM [facility] Est Glomerular Filtration Rate - Male 127 mL/min/1. 73 m?? 10/01/2024 2:41 AM EST [facility] MD CHEMISTRY ORDERABLES Performing Organization Address City/State/[facility] Co de Phone Number [facility] [place] [phone] * (ABNORMAL) CBC (with Diff) (10/01/2024 2:02 AM EST) White Blood Cell 10.15(H) 4.00 - 9.50 x10(3)/mc L 10/01/2024 2:55 AM [facility] Red Blood Cell 3.14(L) 4.58 - 5.54 x10(6)/mc L 10/01/2024 2:55 AM [facility] Hemoglobin 9.1(L) 13.7 - 16.5 g/dL 10/01/2024 2:55 AM [facility] Hematocrit 26.9(L) 40.5 - 48.5 % 10/01/2024 2:55 AM [facility] Mean Cell Volume 85.7 82.9 - 93.1 fL 10/01/2024 2:55 AM [facility] Mean Cell Hemoglobin 29.0 27.5 - 32.1 pg 10/01/2024 2:55 AM [facility] Mean Cell Hemoglobin Concentration 33.8 32.0 - 35.7 g/dL 10/01/2024 2:55 AM [facility] Platelet 444(H) 145 - 357 x10(3)/mc L 10/01/2024 2:55 AM [facility] Mean Platelet Volume 8.9 7.6 - 12.9 fL 10/01/2024 2:55 AM [facility] RDW Standard Deviation 41.2 36.0 - 45.0 fL 10/01/2024 2:55 AM [facility] RDW coefficient of variation 13.2 11.4 - 13.8 % 10/01/2024 2:55 AM [facility] NRBC% auto 0.0 % 10/01/2024 2:55 AM [facility] NRBC Absolute <0.01 <0.01 x10(3)/mc L 10/01/2024 2:55 AM [facility] Neutrophil % 59.5 % 10/01/2024 2:55 AM [facility] Comment:This is an appended report. These results have been appended to a previously preliminary verified report. Neutrophil Absolute (ANC) - Automated 6.05 1.70 - 6.10 x10(3)/mc L 10/01/2024 2:55 AM [facility] Comment:This is an appended report. These results have been appended to a previously preliminary verified report. Lymph % 22.3 % 10/01/2024 2:55 AM [facility] Comment:This is an appended report. These results have been appended to a previously preliminary verified report. Lymph Absolute 2.26 0.90 - 3.20 x10(3)/mc L 10/01/2024 2:55 AM [facility] Comment:This is an appended report. These results have been appended to a previously preliminary verified report. Monocyte % 7.4 % 10/01/2024 2:55 AM [facility] Comment:This is an appended report. These results have been appended to a previously preliminary verified report. Monocyte Absolute 0.75 0.30 - 0.90 x10(3)/mc L 10/01/2024 2:55 AM EST [facility] [...] 0.10 x10(3)/mc L 10/01/2024 2:55 AM EST [facility] [...] 0.04 x10(3)/mc L 10/01/2024 2:55 AM EST [facility] Comment:This is an appended report. These results have been appended to a previously preliminary verified report. Blood VENOUS BLOOD SPECIMEN / Unknown Venipuncture / Unknown 10/01/2024 2:02 AM EST 10/01/2024 2:10 AM EST Hayley Torres MD HEMATOLOGY ORDERABLE S [facility] [place] [address] * POC, GLUCOSE (10/01/2024 12:32 AM EST) Glucometer, POC 179 65 - 199 mg/dL 10/01/2024 12:32 AM EST [facility] Comment:Supplemental ranges: <140 mg/dL before meals <180 mg/dL all other times of the day. Blood CAPILLARY BLOOD / Unknown 10/01/2024 12:32 AM EST 10/01/2024 12:32 AM EST Hayley Torres MD POINT OF CARE TEST O GILDA Performing Organization Address City/[facility]/ZIP Co de Phone Number [facility] [place] [address] * POC, GLUCOSE (09/30/2024 7:37 PM EST) Glucometer, POC 140 65 - 199 mg/dL 09/30/2024 7:38 PM EST [facility] Comment:Supplemental ranges: <140 mg/dL before meals <180 mg/dL all other times of the day. Blood CAPILLARY BLOOD / Unknown 09/30/2024 7:37 PM EST 09/30/2024 7:38 PM EST Hayley Torres MD POINT OF CARE TEST O GILDA Performing Organization Address City/[facility]/ZIP Co de Phone Number [facility] [place] [address] * POC, GLUCOSE (09/30/2024 4:29 PM EST) Glucometer, POC 126 65 - 199 mg/dL 09/30/2024 4:30 PM EST [facility] Comment:Supplemental ranges: <140 mg/dL before meals <180 mg/dL all other times of the day. Blood CAPILLARY BLOOD / Unknown 09/30/2024 4:29 PM EST 09/30/2024 4:30 PM EST Hayley Torres MD POINT OF CARE TEST O RDERABLES Performing Organization Address [facility] Co de Phone Number [facility] [place] [address] * POC, GLUCOSE (09/30/2024 12:16 PM EST) Glucometer, POC 107 65 - 199 mg/dL 09/30/2024 12:16 PM EST [facility] Comment:Supplemental ranges: <140 mg/dL before meals <180 mg/dL all other times of the day. Blood CAPILLARY BLOOD / Unknown 09/30/2024 12:16 PM EST 09/30/2024 12:16 PM EST Hayley Torres MD POINT OF CARE TEST O RDTYESHA Performing Organization Address [facility] Co de Phone Number [facility] [place] [address] * POC, GLUCOSE (09/30/2024 7:58 AM EST) Glucometer, POC 92 65 - 199 mg/dL 09/30/2024 7:58 AM EST [facility] Comment:Supplemental ranges: <140 mg/dL before meals <180 mg/dL all other times of the day. Blood CAPILLARY BLOOD / Unknown 09/30/2024 7:58 AM EST 09/30/2024 7:58 AM EST Hayley Torres MD POINT OF CARE TEST O RDERAHERNANDEZ Performing Organization Address City/[facility] Co de Phone Number [facility] [place] [address] * Potassium (09/30/2024 6:27 AM EST) Potassium 3.9 3.5 - 5.0 mMol/L 09/30/2024 7:10 AM EST [facility] Blood VENOUS BLOOD SPECIMEN / Unknown Venipuncture / Unknown 09/30/2024 6:27 AM EST 09/30/2024 6:35 AM EST Hayley Torres MD CHEMISTRY ORDERABLES Performing Organization Address [facility] Co de Phone Number [facility] [place] [address] * Vancomycin, trough (09/30/2024 6:27 AM EST) Vancomycin, Trough 14.1 10.0 - 20.0 mg/L 09/30/2024 7:10 AM EST [facility] Comment: Varies according to infection source. Blood VENOUS BLOOD SPECIMEN / Unknown Venipuncture / Unknown 09/30/2024 6:27 AM EST 09/30/2024 6:35 AM EST Hayley Torres MD CHEMISTRY ORDERABLES Performing Organization Address [facility] Co de Phone Number [facility] [place] [address] * POC, GLUCOSE (09/30/2024 3:51 AM EST) [facility] Glucometer, POC 134 65 - 199 mg/dL 09/30/2024 3:51 AM EST [facility] Comment:Supplemental ranges: <140 mg/dL before meals <180 mg/dL all other times of the day. Blood CAPILLARY BLOOD / Unknown 09/30/2024 3:51 AM EST 09/30/2024 3:51 AM EST Hayley Torres MD POINT OF CARE TEST O RDERABLES Performing Organization Address City/[facility]/ZIP Co de Phone Number [facility] [place] [address] * Magnesium (09/29/2024 11:52 PM EST) Magnesium 0.85 0.69 - 1.07 mMol/L 09/30/2024 12:25 AM EST [facility] Blood VENOUS BLOOD SPECIMEN / Unknown Venipuncture / Unknown 09/29/2024 11:52 PM EST 09/29/2024 11:58 PM EST Hayley Torres MD CHEMISTRY ORDERABLES [facility] [place] [address] * (ABNORMAL) Basic Metabolic Panel (09/29/2024 11:52 PM EST) Glucose 133 65 - 199 mg/dL 09/30/2024 12:51 AM [facility] Comment:Glucose Concentratio n >=200 mg/dL plus symptoms is consistent with Diabetes Mellitus. Blood Urea Nitrogen 9(L) 10 - 20 mg/dL 09/30/2024 12:51 AM [facility] Creatinine 0.48(L) 0.80 - 1.50 mg/dL 09/30/2024 12:51 AM [facility] Sodium 138 135 - 145 mMol/L 09/30/2024 12:51 AM [facility] Potassium 3.4(L) 3.5 - 5.0 mMol/L 09/30/2024 12:51 AM [facility] Chloride 103 98 - 107 mMol/L 09/30/2024 12:51 AM [facility] Carbon Dioxide 24 22 - 31 mMol/L 09/30/2024 12:51 AM [facility] Anion Gap 11 5 - 15 mMol/L 09/30/2024 12:51 AM [facility] Calcium 8.1(L) 8.5 - 10.5 mg/dL 09/30/2024 12:51 AM [facility] Est Glomerular Filtration Rate - Male 126 mL/min/1. 73 m?? 09/30/2024 12:51 AM [facility] Comment: This patient's estimated GFR [...] ORDERABLES [facility] [place] [address] * (ABNORMAL) CBC (with Diff) (09/29/2024 11:52 PM EST) White Blood Cell 9.54(H) 4.00 - 9.50 x10(3)/mc L 09/30/2024 12:02 AM [facility] Red Blood Cell 3.04(L) 4.58 - 5.54 x10(6)/mc L 09/30/2024 12:02 AM [facility] Hemoglobin 8.7(L) 13.7 - 16.5 g/dL 09/30/2024 12:02 AM [facility] Hematocrit 25.8(L) 40.5 - 48.5 % 09/30/2024 12:02 AM [facility] Mean Cell Volume 84.9 82.9 - 93.1 fL 09/30/2024 12:02 AM [facility] Mean Cell Hemoglobin 28.6 27.5 - 32.1 pg 09/30/2024 12:02 AM [facility] Mean Cell Hemoglobin Concentration 33.7 32.0 - 35.7 g/dL 09/30/2024 12:02 AM [facility] Platelet 411(H) 145 - 357 x10(3)/mc L 09/30/2024 12:02 AM [facility] Mean Platelet Volume 8.8 7.6 - 12.9 fL 09/30/2024 12:02 AM [facility] RDW Standard Deviation 41.4 36.0 - 45.0 fL 09/30/2024 12:02 AM [facility] RDW coefficient of variation 13.4 11.4 - 13.8 % 09/30/2024 12:02 AM [facility] NRBC% auto 0.0 % 09/30/2024 12:02 AM [facility] NRBC Absolute <0.01 <0.01 x10(3)/mc L 09/30/2024 12:02 AM [facility] Neutrophil % 64.5 % 09/30/2024 12:02 AM [facility] Neutrophil Absolute (ANC) - Automated 6.16(H) 1.70 - 6.10 x10(3)/mc L 09/30/2024 12:02 AM [facility] Lymph % 23.1 % 09/30/2024 12:02 AM [facility] Lymph Absolute 2.20 0.90 - 3.20 x10(3)/mc L 09/30/2024 12:02 AM [facility] Monocyte % 8.0 % 09/30/2024 12:02 AM [facility] Monocyte Absolute 0.76 0.30 - 0.90 x10(3)/mc L 09/30/2024 12:02 AM [facility] Eos % 1.5 % 09/30/2024 12:02 AM [facility] Eos Absolute 0.14 0.00 - 0.40 x10(3)/mc L 09/30/2024 12:02 AM [facility] Basophil % 0.3 % 09/30/2024 12:02 AM [facility] Baso Absolute <0.04 0.00 - 0.10 x10(3)/mc L 09/30/2024 12:02 AM [facility] Immature Gran % 2.6 % 12:02 AM [facility] Immature Gran Absolute 0.25(H) 0.00 - 0.04 x10(3)/mc L 09/30/2024 12:02 AM EST [facility] Blood VENOUS BLOOD SPECIMEN / Unknown Venipuncture / Unknown 09/29/2024 11:52 PM EST 09/29/2024 11:58 PM EST Hayley Torres MD HEMATOLOGY ORDERABLE S [facility] [place] [address] * POC, GLUCOSE (09/29/2024 11:51 PM EST) [...] RDERABLES [facility] [place] [address] * Blood culture (09/29/2024 9:24 PM EST) Blood Culture No growth at 120 hours 10/04/2024 11:01 PM EST [facility] Blood VENOUS BLOOD SPECIMEN / Unknown Venipuncture / Unknown 09/29/2024 9:24 PM EST 09/29/2024 9:34 PM EST Hayley Torres MD MICROBIOLOGY - BLOOD ORDERABLES [facility] [place] [address] * Blood culture (09/29/2024 9:24 PM EST) Blood Culture No growth at 120 hours 10/04/2024 11:01 PM EST [facility] Blood VENOUS BLOOD SPECIMEN / Unknown Venipuncture / Unknown 09/29/2024 9:24 PM EST 09/29/2024 9:34 PM EST Marko Dickson MD MICROBIOLOGY - BLOOD ORDERABLES [facility] [place] [address] * (ABNORMAL) POC, GLUCOSE (09/29/2024 7:35 PM [...] CARE TEST O GILDA Performing Organization Address City/[facility]/ZIP Co de Phone Number [facility] [place] [address] * POC, GLUCOSE (09/29/2024 6:48 PM EST) Glucometer, POC 161 65 - 199 mg/dL 09/29/2024 6:48 PM EST [facility] Comment:Supplemental ranges: <140 mg/dL before meals <180 mg/dL all other times of the day. Blood CAPILLARY BLOOD / Unknown 09/29/2024 6:48 PM EST 09/29/2024 6:49 PM EST Hayley Torres MD POINT OF CARE TEST O RDTYESHA [facility] [place] [address] * POC, GLUCOSE (09/29/2024 4:06 PM EST) Glucometer, POC 122 65 - 199 mg/dL 09/29/2024 4:06 PM EST [facility] Comment:Supplemental ranges: <140 mg/dL before meals <180 mg/dL all other times of the day. Blood CAPILLARY BLOOD / Unknown 09/29/2024 4:06 PM EST 09/29/2024 4:06 PM EST Hayley Torres MD POINT OF CARE TEST O GILDA Performing Organization Address City/[facility] Co de Phone Number [facility] [place] [address] * POC, GLUCOSE (09/29/2024 11:49 AM EST) Glucometer, POC 135 65 - 199 mg/dL 09/29/2024 11:49 AM EST [facility] Comment:Supplemental ranges: <140 mg/dL before meals <180 mg/dL all other times of the day. Blood CAPILLARY BLOOD / Unknown 09/29/2024 11:49 AM EST 09/29/2024 11:50 AM EST Hayley Torres MD POINT OF CARE TEST O GILDA Performing Organization Address [facility] Co de Phone Number [facility] [place] [address] * (ABNORMAL) POC, GLUCOSE (09/29/2024 7:53 AM [...] CARE TEST O GILDA Performing Organization Address City/[facility]/ZIP Co de Phone Number [facility] [place] [address] * POC, GLUCOSE (09/29/2024 3:45 AM EST) Glucometer, POC 184 65 - 199 mg/dL 09/29/2024 3:46 AM EST [facility] Comment:Supplemental ranges: <140 mg/dL before meals <180 mg/dL all other times of the day. Blood CAPILLARY BLOOD / Unknown 09/29/2024 3:45 AM EST 09/29/2024 3:46 AM EST Hayley Torres MD POINT OF CARE TEST O RDERABLES Performing Organization Address City/[facility]/[place] [address] * (ABNORMAL) Hemoglobin A1c (09/28/2024 11:51 PM EST) [facility] Hemoglobin A1c 9.7(H) 4.3 - 5.6 % [...] red blood cell turnover may not be treasury representative of glycemic control. Reference Interval: 4.3 - 5.6% 5.7 - 6.4%: Consistent with prediabetes >=6.5%: Consistent with diagnosis of diabetes mellitus Estimated Average Glucose 232 mg/dL 09/29/2024 9:54 AM EST [facility] Blood VENOUS BLOOD SPECIMEN / Unknown Venipuncture / Unknown 09/28/2024 11:51 PM EST 09/28/2024 11:56 PM EST Hayley Torres MD CHEMISTRY ORDERABLES Performing Organization Address City/[facility]/ZIP Co de Phone Number [facility] [place] [address] * Magnesium (09/28/2024 11:51 PM EST) Magnesium 0.72 0.69 - 1.07 mMol/L 09/29/2024 12:27 AM [facility] Blood VENOUS BLOOD SPECIMEN / Unknown Venipuncture / Unknown 09/28/2024 11:51 PM EST 09/28/2024 11:57 PM EST Hayley Torres MD CHEMISTRY ORDERABLES [facility] [place] [address] * (ABNORMAL) Basic Metabolic Panel (09/28/2024 11:51 PM EST) Glucose 204(H) 65 - 199 mg/dL 09/29/2024 12:40 AM [facility] Comment:Glucose Concentratio n >=200 mg/dL plus symptoms is consistent with Diabetes Mellitus. Blood Urea Nitrogen 6(L) 10 - 20 mg/dL 09/29/2024 12:40 AM [facility] Creatinine 0.52(L) 0.80 - 1.50 mg/dL 09/29/2024 12:40 AM [facility] Sodium 137 135 - 145 mMol/L 09/29/2024 12:40 AM [facility] Potassium 3.2(L) 3.5 - 5.0 mMol/L 09/29/2024 12:40 AM [facility] Chloride 105 98 - 107 mMol/L 09/29/2024 12:40 AM [facility] Carbon Dioxide 21(L) 22 - 31 mMol/L 09/29/2024 12:40 AM [facility] Anion Gap 11 5 - 15 mMol/L 09/29/2024 12:40 AM [facility] Calcium 6.7(LLL) 8.5 - 10.5 mg/dL 09/29/2024 12:40 AM [facility] Est Glomerular Filtration Rate - Male 123 mL/min/1. 73 m?? 09/29/2024 12:40 AM [facility] Comment: This patient's estimated GFR [...] Torres MD CHEMISTRY ORDERABLES Performing Organization Address City/State/[facility] Co de Phone Number [facility] [place] [address] * (ABNORMAL) CBC (with Diff) (09/28/2024 11:51 PM EST) White Blood Cell 12.76(H) 4.00 - 9.50 x10(3)/mc L 09/29/2024 12:00 AM [facility] Red Blood Cell 2.90(L) 4.58 - 5.54 x10(6)/mc L 09/29/2024 12:00 AM [facility] Hemoglobin 8.5(L) 13.7 - 16.5 g/dL 09/29/2024 12:00 AM [facility] Hematocrit 24.7(L) 40.5 - 48.5 % 09/29/2024 12:00 AM [facility] Mean Cell Volume 85.2 82.9 - 93.1 fL 09/29/2024 12:00 AM [facility] Mean Cell Hemoglobin 29.3 27.5 - 32.1 pg 09/29/2024 12:00 AM [facility] Mean Cell Hemoglobin Concentration 34.4 32.0 - 35.7 g/dL 09/29/2024 12:00 AM [facility] Platelet 331 145 - 357 x10(3)/mc L 09/29/2024 12:00 AM [facility] Mean Platelet Volume 9.2 7.6 - 12.9 fL 09/29/2024 12:00 AM [facility] RDW Standard Deviation 40.4 36.0 - 45.0 fL 09/29/2024 12:00 AM [facility] RDW coefficient of variation 13.1 11.4 - 13.8 % 09/29/2024 12:00 AM [facility] NRBC% auto 0.0 % 09/29/2024 12:00 AM [facility] NRBC Absolute <0.01 <0.01 x10(3)/mc L 09/29/2024 12:00 AM [facility] Neutrophil % 86.7 % 09/29/2024 12:00 AM [facility] Neutrophil Absolute (ANC) - Automated 11.06(H) 1.70 - 6.10 x10(3)/mc L 09/29/2024 12:00 AM [facility] Lymph % 7.7 % 09/29/2024 12:00 AM [facility] Lymph Absolute 0.98 0.90 - 3.20 x10(3)/mc L 09/29/2024 12:00 AM [facility] Monocyte % 4.0 % 09/29/2024 12:00 AM [facility] Monocyte Absolute 0.51 0.30 - 0.90 x10(3)/mc L 09/29/2024 12:00 AM [facility] Eos % 0.0 % 09/29/2024 12:00 AM [facility] Eos Absolute <0.04 0.00 - 0.40 x10(3)/mc L 09/29/2024 12:00 AM [facility] Basophil % 0.2 % 09/29/2024 12:00 AM [facility] Baso Absolute <0.04 0.00 - 0.10 x10(3)/mc L 09/29/2024 12:00 AM [facility] Immature Gran % 1.4 % 12:00 AM [facility] Immature Gran Absolute 0.18(H) 0.00 - 0.04 x10(3)/mc L 09/29/2024 12:00 AM [facility] Blood VENOUS BLOOD SPECIMEN / Unknown Venipuncture / Unknown 09/28/2024 11:51 PM EST 09/28/2024 11:56 PM EST Hayley Torres MD HEMATOLOGY ORDERABLE S Performing Organization Address City/[facility]/ZIP Co de Phone Number [facility] [place] [address] * (ABNORMAL) POC, GLUCOSE (09/28/2024 11:45 PM EST) Glucometer, POC 238(H) 65 - 199 mg/dL 09/28/2024 11:45 PM [facility] Comment:Supplemental ranges: <140 mg/dL before meals <180 mg/dL all other times of the day. Blood CAPILLARY BLOOD / Unknown 09/28/2024 11:45 PM EST 09/28/2024 11:45 PM EST Hayley Torres MD POINT OF CARE TEST O RDERABLES [facility] [place] [address] * (ABNORMAL) POC, GLUCOSE (09/28/2024 10:00 PM EST) Glucometer, POC 287(H) 65 - 199 mg/dL 09/28/2024 10:00 PM [facility] Comment:Supplemental ranges: <140 mg/dL before meals <180 mg/dL all other times of the day. Blood CAPILLARY BLOOD / Unknown 09/28/2024 10:00 PM EST 09/28/2024 10:00 PM EST Hayley Torres MD POINT OF CARE TEST O RDTYESHA [facility] [place] [address] * (ABNORMAL) POC, GLUCOSE (09/28/2024 7:51 PM [...] GILDA [facility] [place] [address] * Blood culture (09/28/2024 5:49 PM EST) Blood Culture No growth at 120 hours 10/03/2024 7:01 PM EST [facility] Blood VENOUS BLOOD SPECIMEN / Unknown Venipuncture / Unknown 09/28/2024 5:49 PM EST 09/28/2024 5:53 PM EST Marko Dickson MD MICROBIOLOGY - BLOOD ORDERABLES [facility] [place] [address] * (ABNORMAL) POC, GLUCOSE (09/28/2024 4:42 PM [...] RDERABLES [facility] [place] [address] * (ABNORMAL) Blood Gas, Arterial POC (09/28/2024 3:16 PM EST) pH, Arterial 7.42 7.35 - 7.45 09/28/2024 3:17 PM [facility] PCO2, Arterial 39 35 - 45 mmHg 09/28/2024 3:17 PM [facility] PO2, Arterial 103 85 - 104 mmHg 09/28/2024 3:17 PM [facility] Bicarbonate, Arterial 24.8 20.0 - 26.0 mmol/L 09/28/2024 3:17 PM [facility] Base Excess, Arterial 0.2 -3.0 - 3.0 mmol/L 09/28/2024 3:17 PM [facility] Hemoglobin, Arterial 10.9(L) 13.7 - 16.5 g/dL 09/28/2024 3:17 PM [facility] Oxyhemoglobin, Arterial 97.1(H) 94.0 - 97.0 % 09/28/2024 3:17 PM [facility] Carboxyhemoglobin , Arterial 0.1 % 09/28/2024 3:17 PM [facility] Comment: Nonsmokers: 0.5-1.5% COHB ?? Smokers: Variable ??but usually less than 10% ?? Toxic: 20-30% COHB ?? Lethal: Greater than 60% COHB Methemoglobin, Arterial 0.2 <=1.5 % 09/28/2024 3:17 PM [facility] Sodium, Arterial 131(L) 135 - 145 mmol/L 09/28/2024 3:17 PM EST [facility] Potassium, Arterial 3.8 3.5 - 5.0 mmol/L 09/28/2024 3:17 PM EST [facility] Chloride, Arterial 99 98 [...] CARE TEST O RDERABLES Performing Organization Address City/State/[facility] Co de Phone Number [facility] [place] [address] * Surgical Pathology (09/28/2024 2:10 PM EST) Case Report Surgical Pathology Report ? Case: [id number] ? Authorizing Provider: ??Hayley Torres MD ? Collected: ? 09/28/2024 1410 ? Ordering Location: ? Main Operating Room [facility] ?? Received: ?09/28/2024 1644 ? [facility] ? Pathologist: ? Aziza Packer MD ? Specimens: ?? A) - Leg, Left, Left femoral proximal graft ? B) - Leg, Left, Left distal BK pop graft ? 10/02/2024 8:17 AM [facility] Final Diagnosis A. Graft, left leg, femoral proximal, excision: - Gross surgical pathology examination. B. Graft, left leg, distal BK pop, excision: - Gross surgical pathology examination. 10/02/2024 8:17 AM [facility] Clinical Information A. Leg, Left, Left femoral proximal graft Left femoral proximal graft B. Leg, Left, Left distal BK pop graft Left distal BK pop graft 10/02/2024 8:17 AM EST [facility] Gross Description A. Leg, [...] EST [facility] [employer] STRUCTURE OF LEFT LOWER LIMB / Unknown 09/28/2024 2:10 PM EST 09/28/2024 4:44 PM EST Comment:Left femoral proxima l graft Biomedical device (physical object) STRUCTURE OF LEFT LOWER LIMB / Unknown 09/28/2024 2:17 PM EST 09/28/2024 4:44 PM EST Comment:Left distal BK pop g raft Hayley Torres MD PATHOLOGY/CYTOLOGY O RDERABLES [facility] [place] [address] * Potassium (09/28/2024 10:45 AM EST) Potassium 4.6 3.5 - 5.0 mMol/L 09/28/2024 12:26 PM EST [facility] Blood VENOUS BLOOD SPECIMEN / Unknown Venipuncture / Unknown 09/28/2024 10:45 AM EST 09/28/2024 10:53 AM EST Marko Dickson MD CHEMISTRY ORDERABLES Performing Organization Address [facility] Co de Phone Number [facility] [place] [address] * POC, GLUCOSE (09/28/2024 7:57 AM EST) Glucometer, POC 192 65 - 199 mg/dL 09/28/2024 7:57 AM EST [facility] Comment:Supplemental ranges: <140 mg/dL before meals <180 mg/dL all other times of the day. Blood CAPILLARY BLOOD / Unknown 09/28/2024 7:57 AM EST 09/28/2024 7:57 AM EST Marko Dickson MD POINT OF CARE TEST O RDERABLES Performing Organization Address [facility] de Phone Number [facility] [place] [address] * ELEN, legs, multiple levels (09/28/2024 7:44 AM EST) VB Text Report Department: Vascular Surgery Lab Patient: [id number] (GEOVANNA DIXON) CPT: 42540 Referring Physician: HERMILA SNIDER ?? Phone: Indications: [...] EST Narrative 09/28/2024 9:15 AM EST 1 [place] [address] ? Echocardiogram Report Name: GEOVANNA DIXON JR ?Study Date: 09/28/2024 06:56 AMBP: 132/75 mmHg ? Patient Location: ^IC08^A : 1975 ? Height: 179 cm ? Account: [id number] Age: 49 yrs ? Weight: 108 kg Gender: Male ?BSA: 2.3 m2 Ordering Physician: Marko Dickson MD Referring Physician: PATRIC GILES Performed By: Faiza Cole Reason For Study: Vascular graft infection, initial encounter; MRSA bacteremia Interpreting Fellow: Jame Lares. Exam Location: [facility]. Interpretation Summary -Limited study performed for [...] 05/29/2024, no significant changes. Procedure Limited - 25005. Doppler - 51076. Color Doppler - 64734. Suboptimal quality. This study is limited because [...] Note David Lomeli MD - 09/28/2024 1 [place] [address] Echocardiogram Report Name: GEOVANNA DIXON JR Study Date: 406:56 AMBP: 132/75 mmHg Patient Location:^IC08^A : 1975 Height: 179 cm Account: [id number] Age: 49 yrs Weight: 108 kg Gender: Male BSA: 2.3 m2 Ordering Physician: Marko Dickson MD Referring Physician: PATRIC GILES Performed By: Faiza Cole Reason For Study: Vascular graft infection, initial encounter; MRSAbacteremia Interpreting Fellow: Jame Lares. Exam Location: [facility]. Interpretation Summary -Limited study performed for [...] 05/29/2024, no significant changes. Procedure Limited - 76017. Doppler - 17098. Color Doppler - 36182. Suboptimalquality. This study is limited because of [...] * Vancomycin, trough (09/28/2024 6:44 AM EST) [facility] Vancomycin, Trough 10.0 10.0 - 20.0 mg/L 09/28/2024 7:21 AM EST [facility] Comment: Varies according to infection source. Blood VENOUS BLOOD SPECIMEN / Unknown Venipuncture / Unknown 09/28/2024 6:44 AM EST 09/28/2024 6:49 AM EST Marko Dickson MD CHEMISTRY ORDERABLES [facility] [place] [address] * (ABNORMAL) Potassium (09/28/2024 4:55 AM EST) [facility] Potassium 2.9(LLL) 3.5 - 5.0 mMol/L 09/28/2024 5:31 AM EST [facility] Blood VENOUS BLOOD SPECIMEN / Unknown Venipuncture / Unknown 09/28/2024 4:55 AM EST 09/28/2024 5:01 AM EST Marko Dickson MD CHEMISTRY ORDERABLES [facility] [place] [address] * (ABNORMAL) POC, GLUCOSE (09/28/2024 3:54 AM EST) [facility] Glucometer, POC 229(H) 65 - 199 mg/dL 09/28/2024 3:54 AM EST [facility] Comment:Supplemental ranges: <140 mg/dL before meals <180 mg/dL all other times of the day. Blood CAPILLARY BLOOD / Unknown 09/28/2024 3:54 AM EST 09/28/2024 3:54 AM EST Marko Dickson MD POINT OF CARE TEST O RDERABLES [facility] [place] [address] * Magnesium (09/27/2024 11:58 PM EST) Pathologist [facility] Magnesium 0.77 0.69 - 1.07 mMol/L 09/28/2024 12:38 AM [facility] Blood VENOUS BLOOD SPECIMEN / Unknown Venipuncture / Unknown 09/27/2024 11:58 PM EST 09/28/2024 12:10 AM EST Hayley Torres MD CHEMISTRY ORDERABLES Performing Organization Address [facility]/ZIP Co de Phone Number [facility] [place] [address] * (ABNORMAL) Basic Metabolic Panel (09/27/2024 11:58 PM EST) [facility] Glucose 246(H) 65 - 199 mg/dL 09/28/2024 12:38 AM [facility] Comment:Glucose Concentratio n >=200 mg/dL plus symptoms is consistent with Diabetes Mellitus. Blood Urea Nitrogen 5(L) 10 - 20 mg/dL 09/28/2024 12:38 AM [facility] Creatinine 0.48(L) 0.80 - 1.50 mg/dL 09/28/2024 12:38 AM [facility] Sodium 131(L) 135 - 145 mMol/L 09/28/2024 12:38 AM [facility] Potassium 3.2(L) 3.5 - 5.0 mMol/L 09/28/2024 12:38 AM [facility] Chloride 95(L) 98 - 107 mMol/L 09/28/2024 12:38 AM [facility] Carbon Dioxide 23 22 - 31 mMol/L 09/28/2024 12:38 AM [facility] Anion Gap 13 5 - 15 mMol/L 09/28/2024 12:38 AM [facility] Calcium 8.1(L) 8.5 - 10.5 mg/dL 09/28/2024 12:38 AM [facility] Est Glomerular Filtration Rate - Male 126 mL/min/1. 73 m?? 09/28/2024 12:38 AM [facility] Comment: This patient's estimated GFR [...] ORDERABLES [facility] [place] [address] * (ABNORMAL) CBC (with Diff) (09/27/2024 11:58 PM EST) White Blood Cell 17.15(H) 4.00 - 9.50 x10(3)/mc L 09/28/2024 12:14 AM [facility] Red Blood Cell 3.64(L) 4.58 - 5.54 x10(6)/mc L 09/28/2024 12:14 AM [facility] Hemoglobin 10.4(L) 13.7 - 16.5 g/dL 09/28/2024 12:14 AM [facility] Hematocrit 30.5(L) 40.5 - 48.5 % 09/28/2024 12:14 AM [facility] Mean Cell Volume 83.8 82.9 - 93.1 fL 09/28/2024 12:14 AM [facility] Mean Cell Hemoglobin 28.6 27.5 - 32.1 pg 09/28/2024 12:14 AM [facility] Mean Cell Hemoglobin Concentration 34.1 32.0 - 35.7 g/dL 09/28/2024 12:14 AM [facility] Platelet 316 145 - 357 x10(3)/mc L 09/28/2024 12:14 AM [facility] Mean Platelet Volume 9.4 7.6 - 12.9 fL 09/28/2024 12:14 AM [facility] RDW Standard Deviation 39.4 36.0 - 45.0 fL 09/28/2024 12:14 AM [facility] RDW coefficient of variation 12.8 11.4 - 13.8 % 09/28/2024 12:14 AM [facility] NRBC% auto 0.0 % 09/28/2024 12:14 AM [facility] NRBC Absolute <0.01 <0.01 x10(3)/mc L 09/28/2024 12:14 AM [facility] Neutrophil % 81.2 % 09/28/2024 12:14 AM [facility] Neutrophil Absolute (ANC) - Automated 13.93(H) 1.70 - 6.10 x10(3)/mc L 09/28/2024 12:14 AM [facility] Lymph % 10.5 % 09/28/2024 12:14 AM [facility] Lymph Absolute 1.80 0.90 - 3.20 x10(3)/mc L 09/28/2024 12:14 AM [facility] Monocyte % 5.7 % 09/28/2024 12:14 AM [facility] Monocyte Absolute 0.98(H) 0.30 - 0.90 x10(3)/mc L 09/28/2024 12:14 AM [facility] Eos % 0.7 % 09/28/2024 12:14 AM EST [facility] Eos Absolute 0.12 0.00 - 0.40 x10(3)/mc L 09/28/2024 12:14 AM EST [facility] Basophil % 0.5 % 09/28/2024 12:14 AM [facility] Baso Absolute 0.08 0.00 - 0.10 x10(3)/mc L 09/28/2024 12:14 AM EST [facility] Immature Gran % 1.4 % 12:14 AM [facility] Immature Gran Absolute 0.24(H) 0.00 - 0.04 x10(3)/mc L 09/28/2024 12:14 AM [facility] Blood VENOUS BLOOD SPECIMEN / Unknown Venipuncture / Unknown 09/27/2024 11:58 PM EST 09/28/2024 12:10 AM EST Hayley Torres MD HEMATOLOGY ORDERABLE S Performing Organization Address City/[facility]/ZIP Co de Phone Number [facility] [place] [address] * (ABNORMAL) POC, GLUCOSE (09/27/2024 11:46 PM EST) [facility] Signature Glucometer, POC 205(H) 65 - 199 mg/dL 09/27/2024 11:46 PM EST [facility] Comment:Supplemental ranges: <140 mg/dL before meals <180 mg/dL all other times of the day. Blood CAPILLARY BLOOD / Unknown 09/27/2024 11:46 PM EST 09/27/2024 11:46 PM EST Marko Dickson MD POINT OF CARE TEST O RDERABLES [facility] [place] [address] * (ABNORMAL) Blood culture (09/27/2024 9:33 PM EST) Blood Culture Methicillin Resistant Staphylococcus aureus(Critical) 10/02/2024 8:04 AM EST [facility] Comment:Susceptibilities pre viously reported. Gram Stain Aerobic Bottle: Gram positive cocci in clusters(Critical ) 10/02/2024 8:04 AM EST [facility] Blood VENOUS BLOOD SPECIMEN / Unknown Venipuncture / Unknown 09/27/2024 9:33 PM EST 09/27/2024 9:38 PM EST Marko Dickson MD MICROBIOLOGY - BLOOD ORDERABLES Performing Organization Address [facility]/ZIP Co de Phone Number [facility] [place] [address] * POC, GLUCOSE (09/27/2024 7:51 PM EST) [facility] Glucometer, POC 142 65 - 199 mg/dL 09/27/2024 7:51 PM EST [facility] Comment:Supplemental ranges: <140 mg/dL before meals <180 mg/dL all other times of the day. Blood CAPILLARY BLOOD / Unknown 09/27/2024 7:51 PM EST 09/27/2024 7:51 PM EST Marko Dickson MD POINT OF CARE TEST O RDERABLES Performing Organization Address [facility]/ZIP Co de Phone Number [facility] [place] [address] * (ABNORMAL) Hemogram (09/27/2024 5:55 PM EST) White Blood Cell 19.38(H) 4.00 - 9.50 x10(3)/mc L 09/27/2024 6:16 PM EST [facility] Red Blood Cell 3.76(L) 4.58 - 5.54 x10(6)/mc L 09/27/2024 6:16 PM EST [facility] Hemoglobin 11.0(L) 13.7 - 16.5 g/dL 09/27/2024 6:16 PM EST [facility] Hematocrit 31.6(L) 40.5 - 48.5 % 09/27/2024 6:16 PM [facility] Mean Cell Volume 84.0 82.9 - 93.1 fL 09/27/2024 6:16 PM [facility] Mean Cell Hemoglobin 29.3 27.5 - 32.1 pg 09/27/2024 6:16 PM [facility] Mean Cell Hemoglobin Concentration 34.8 32.0 - 35.7 g/dL 09/27/2024 6:16 PM [facility] Platelet 322 145 - 357 x10(3)/mc L 09/27/2024 6:16 PM [facility] Mean Platelet Volume 9.4 7.6 - 12.9 fL 09/27/2024 6:16 PM [facility] RDW Standard Deviation 39.4 36.0 - 45.0 fL 09/27/2024 6:16 PM [facility] RDW coefficient of variation 13.0 11.4 - 13.8 % 09/27/2024 6:16 PM [facility] NRBC% auto 0.0 % 09/27/2024 6:16 PM [facility] NRBC Absolute <0.01 <0.01 x10(3)/mc L 09/27/2024 6:16 PM [facility] Blood VENOUS BLOOD SPECIMEN / Unknown Venipuncture / Unknown 09/27/2024 5:55 PM EST 09/27/2024 6:05 PM EST Marko Dickson MD HEMATOLOGY ORDERABLE S [facility] [place] [address] * POC, GLUCOSE (09/27/2024 5:48 PM EST) [facility] Signature Glucometer, POC 171 65 - 199 mg/dL 09/27/2024 5:48 PM [facility] Comment:Supplemental ranges: <140 mg/dL before meals <180 mg/dL all other times of the day. Blood CAPILLARY BLOOD / Unknown 09/27/2024 5:48 PM EST 09/27/2024 5:48 PM EST Marko Dickson MD POINT OF CARE TEST O RDERABLES Performing Organization Address City/[facility]/ZIP Co de Phone Number [facility] [place] [address] * Anaerobic Culture (09/27/2024 4:54 PM EST) Anaerobic Culture No anaerobic organisms isolated 10/01/2024 3:54 PM EST [facility] Tissue STRUCTURE OF LEFT THIGH / Unknown 09/27/2024 4:54 PM EST Comment:Infected explanted l eft leg bypass graft Hayley Torres MD MICROBIOLOGY - GENER AL ORDERABLES Performing Organization Address [facility] Co de Phone Number [facility] [place] [address] * (ABNORMAL) Tissue Culture, Aerobic Only (09/27/2024 [...] - GENER AL ORDERABLES Performing Organization Address [facility] Co de Phone Number [facility] [place] [address] * POC, GLUCOSE (09/27/2024 3:23 PM EST) Glucometer, POC 178 65 - 199 mg/dL 09/27/2024 3:23 PM EST [facility] Comment:Supplemental ranges: <140 mg/dL before meals <180 mg/dL all other times of the day. Blood CAPILLARY BLOOD / Unknown 09/27/2024 3:23 PM EST 09/27/2024 3:23 PM EST Marko Dickson MD POINT OF CARE TEST O GILDA Performing Organization Address [facility] Co de Phone Number [facility] [place] [address] * POC, GLUCOSE (09/27/2024 11:29 AM EST) Glucometer, POC 181 65 - 199 mg/dL 09/27/2024 11:29 AM EST [facility] Comment:Supplemental ranges: <140 mg/dL before meals <180 mg/dL all other times of the day. Blood CAPILLARY BLOOD / Unknown 09/27/2024 11:29 AM EST 09/27/2024 11:30 AM EST Marko Dickson MD POINT OF CARE TEST Stephanie VO Performing Organization Address City/[facility]/ZIP Co de Phone Number [facility] [place] [address] * CT Lower Extremity w Contrast Left (09/27/2024 9:16 AM EST) WORKSTATION ID [id number] RAD Anatomical Region Laterality Modality Hip, Leg, [...] care coordinator that requested your imaging first. Electronically signed by: Ignacia Chi MD, [facility]([phone]), at 09/27/2024 10:48 AM Rose Wright SR. MEDIA MANAGER IMG CT ORDERABL ES * POC, GLUCOSE (09/27/2024 7:51 AM EST) [facility] Glucometer, POC 194 65 - 199 mg/dL 09/27/2024 7:51 AM EST [facility] Comment:Supplemental ranges: <140 mg/dL before meals <180 mg/dL all other times of the day. Blood CAPILLARY BLOOD / Unknown 09/27/2024 7:51 AM EST 09/27/2024 7:51 AM EST Marko Dickson MD POINT OF CARE TEST O RDERABLES [facility] [place] [address] * (ABNORMAL) MRSA PCR Screen (09/27/2024 7:51 AM EST) [facility] MRSA PCR Detected(A ) 09/27/2024 11:56 AM EST [facility] Swab BOTH ANTERIOR NARES / Unknown Non Blood Collection / Unknown 09/27/2024 7:51 AM EST 09/27/2024 8:05 AM EST Narrative [facility] - 09/27/2024 11:56 AM EST This test was performed using the Xpert MRSA NxG test kit and is run on the [employer] GeneXXL Video Dx System. This test is cleared by the U.S. Food and Drug Administration for clinical use and its performance characteristics have been verified by the [facility] at [facility]. Marko Dickson MD MOLECULAR ORDERABLES Performing Organization Address City/[facility]/ZIP Co de Phone Number [facility] [place] [address] * Potassium (09/27/2024 7:51 AM EST) Potassium 3.5 3.5 - 5.0 mMol/L 09/27/2024 9:09 AM EST [facility] Blood VENOUS BLOOD SPECIMEN / Unknown Venipuncture / Unknown 09/27/2024 7:51 AM EST 09/27/2024 8:05 AM EST Marko Dickson MD CHEMISTRY ORDERABLES Performing Organization Address City/[facility]/ZIP Co de Phone Number [facility] [place] [address] * (ABNORMAL) Potassium (09/27/2024 5:05 AM EST) Potassium 3.4(L) 3.5 - 5.0 mMol/L 09/27/2024 5:32 AM EST [facility] Blood VENOUS BLOOD SPECIMEN / Unknown Venipuncture / Unknown 09/27/2024 5:05 AM EST 09/27/2024 5:09 AM EST Marko Dickson MD CHEMISTRY ORDERABLES Performing Organization Address City/[facility]/ZIP Co de Phone Number [facility] [place] [address] * POC, GLUCOSE (09/27/2024 3:52 AM EST) [...] RDERABLES [facility] [place] [address] * (ABNORMAL) POC, GLUCOSE (09/27/2024 1:59 AM [...] RDERABLES [facility] [place] [address] * (ABNORMAL) Magnesium (09/27/2024 12:01 AM EST) Magnesium 0.68(L) 0.69 - 1.07 mMol/L 09/27/2024 12:35 AM EST [facility] Blood VENOUS BLOOD SPECIMEN / Unknown Venipuncture / Unknown 09/27/2024 12:01 AM EST 09/27/2024 12:05 AM EST Hayley Torres MD CHEMISTRY ORDERABLES [facility] [place] [address] * (ABNORMAL) Basic Metabolic Panel (09/27/2024 12:01 AM EST) Glucose 261(H) 65 - 199 mg/dL 09/27/2024 12:35 AM [facility] Comment:Glucose Concentratio n >=200 mg/dL plus symptoms is consistent with Diabetes Mellitus. Blood Urea Nitrogen 7(L) 10 - 20 mg/dL 09/27/2024 12:35 AM [facility] Creatinine 0.45(L) 0.80 - 1.50 mg/dL 09/27/2024 12:35 AM [facility] Sodium 128(L) 135 - 145 mMol/L 09/27/2024 12:35 AM [facility] Potassium 3.3(L) 3.5 - 5.0 mMol/L 09/27/2024 12:35 AM [facility] Chloride 92(L) 98 - 107 mMol/L 09/27/2024 12:35 AM [facility] Carbon Dioxide 23 22 - 31 mMol/L 09/27/2024 12:35 AM [facility] Anion Gap 13 5 - 15 mMol/L 09/27/2024 12:35 AM [facility] Calcium 8.5 8.5 - 10.5 mg/dL 09/27/2024 12:35 AM [facility] Est Glomerular Filtration Rate - Male 128 mL/min/1. 73 m?? 09/27/2024 12:35 AM [facility] Comment: This patient's estimated GFR [...] ORDERABLES [facility] [place] [address] * (ABNORMAL) CBC (with Diff) (09/27/2024 12:01 AM EST) White Blood Cell 23.20(H) 4.00 - 9.50 x10(3)/mc L 09/27/2024 12:10 AM [facility] Red Blood Cell 4.07(L) 4.58 - 5.54 x10(6)/mc L 09/27/2024 12:10 AM [facility] Hemoglobin 11.7(L) 13.7 - 16.5 g/dL 09/27/2024 12:10 AM [facility] Hematocrit 33.6(L) 40.5 - 48.5 % 09/27/2024 12:10 AM [facility] Mean Cell Volume 82.6(L) 82.9 - 93.1 fL 09/27/2024 12:10 AM [facility] Mean Cell Hemoglobin 28.7 27.5 - 32.1 pg 09/27/2024 12:10 AM [facility] Mean Cell Hemoglobin Concentration 34.8 32.0 - 35.7 g/dL 09/27/2024 12:10 AM [facility] Platelet 296 145 - 357 x10(3)/mc L 09/27/2024 12:10 AM [facility] Mean Platelet Volume 9.5 7.6 - 12.9 fL 09/27/2024 12:10 AM [facility] RDW Standard Deviation 37.9 36.0 - 45.0 fL 09/27/2024 12:10 AM [facility] RDW coefficient of variation 12.6 11.4 - 13.8 % 09/27/2024 12:10 AM [facility] NRBC% auto 0.0 % 09/27/2024 12:10 AM [facility] NRBC Absolute <0.01 <0.01 x10(3)/mc L 09/27/2024 12:10 AM [facility] Neutrophil % 83.7 % 09/27/2024 12:10 AM [facility] Neutrophil Absolute (ANC) - Automated 19.43(H) 1.70 - 6.10 x10(3)/mc L 09/27/2024 12:10 AM [facility] Lymph % 6.7 % 09/27/2024 12:10 AM [facility] Lymph Absolute 1.56 0.90 - 3.20 x10(3)/mc L 09/27/2024 12:10 AM [facility] Monocyte % 7.8 % 09/27/2024 12:10 AM [facility] Monocyte Absolute 1.80(H) 0.30 - 0.90 x10(3)/mc L 09/27/2024 12:10 AM [facility] Eos % 0.2 % 09/27/2024 12:10 AM [facility] Eos Absolute 0.04 0.00 - 0.40 x10(3)/mc L 09/27/2024 12:10 AM [facility] Basophil % 0.5 % 09/27/2024 12:10 AM [facility] Baso Absolute 0.12(H) 0.00 - 0.10 x10(3)/mc L 09/27/2024 12:10 AM [facility] Immature Gran % 1.1 % 12:10 AM [facility] Immature Gran Absolute 0.25(H) 0.00 - 0.04 x10(3)/mc L 09/27/2024 12:10 AM [facility] Blood VENOUS BLOOD SPECIMEN / Unknown Venipuncture / Unknown 09/27/2024 12:01 AM EST 09/27/2024 12:05 AM EST Hayley Torres MD HEMATOLOGY ORDERABLE S Performing Organization Address City/[facility]/ZIP Co de Phone Number [facility] [place] [address] * (ABNORMAL) POC, GLUCOSE (09/26/2024 11:59 PM EST) Glucometer, POC 251(H) 65 - 199 mg/dL 09/26/2024 11:59 PM EST [facility] Comment:Supplemental ranges: <140 mg/dL before meals <180 mg/dL all other times of the day. Blood CAPILLARY BLOOD / Unknown 09/26/2024 11:59 PM EST 09/26/2024 11:59 PM EST Marko Dickson MD POINT OF CARE TEST O RDERAHERNANDEZ Performing Organization Address [facility]/ZIP Co de Phone Number [facility] [place] [address] * (ABNORMAL) POC, GLUCOSE (09/26/2024 7:34 PM [...] CARE TEST O GILDA Performing Organization Address City/[facility]/ZIP Co de Phone Number [facility] [place] [address] * (ABNORMAL) Blood culture (09/26/2024 6:45 PM [...] ORDERABLES [facility] [place] [address] * (ABNORMAL) Sonicated Tissue/Implant Culture (09/26/2024 5:16 [...] Dickson MD MICROBIOLOGY - GENER AL ORDERABLES [facility] [place] [address] * Anaerobic Culture (09/26/2024 5:02 PM EST) [...] ORDERABLES [facility] [place] [address] * (ABNORMAL) Abscess/Wound Aspirate Culture, Aerobic Only [...] ORDERABLES [facility] [place] [place] [address] * Anaerobic Culture (09/26/2024 4:50 PM EST) Anaerobic Culture No anaerobic organisms isolated 09/30/2024 3:51 PM EST [facility] Abscess LEFT INGUINAL REGION STRUCTURE / Unknown Non Blood Collection / Unknown 09/26/2024 4:50 PM EST Comment:Left Groin Fluid Hayley Torres MD MICROBIOLOGY - GENER AL ORDERABLES [facility] [place] [address] * (ABNORMAL) Abscess/Wound Aspirate Culture, Aerobic Only [...] ORDERABLES [facility] [place] [address] * (ABNORMAL) Blood Gas, Arterial POC (09/26/2024 4:43 PM EST) pH, Arterial 7.38 7.35 - 7.45 09/27/2024 7:41 AM [facility] PCO2, Arterial 41 35 - 45 mmHg 09/27/2024 7:41 AM [facility] PO2, Arterial 96 85 - 104 mmHg 09/27/2024 7:41 AM [facility] Bicarbonate, Arterial 23.8 20.0 - 26.0 mmol/L 09/27/2024 7:41 AM [facility] Base Excess, Arterial -1.4 -3.0 - 3.0 mmol/L 09/27/2024 7:41 AM [facility] Hemoglobin, Arterial 12.6(L) 13.7 - 16.5 g/dL 09/27/2024 7:41 AM [facility] Oxyhemoglobin, Arterial 96.2 94.0 - 97.0 % 09/27/2024 7:41 AM [facility] Carboxyhemoglobin , Arterial 0.3 % 09/27/2024 7:41 AM [facility] Comment: Nonsmokers: 0.5-1.5% COHB ?? Smokers: Variable ??but usually less than 10% ?? Toxic: 20-30% COHB ?? Lethal: Greater than 60% COHB Methemoglobin, Arterial 0.3 <=1.5 % 09/27/2024 7:41 AM [facility] Sodium, Arterial 128(L) 135 - 145 mmol/L 09/27/2024 7:41 AM [facility] Potassium, Arterial 3.0(LLL) 3.5 - 5.0 mmol/L 09/27/2024 7:41 AM [facility] Chloride, Arterial 95(L) 98 - 107 mmol/L 09/27/2024 7:41 AM [facility] Lactate, Arterial 1.7 0.5 - 2.2 mmol/L 09/27/2024 7:41 AM [facility] IONIZED CALCIUM, ARTERIAL 1.09(L) 1.15 - 1.33 mmol/L 09/27/2024 7:41 AM [facility] Glucose, Arterial 205(H) 65 - 199 mg/dL 09/27/2024 7:41 AM EST [facility] Comment:Glucose Concentratio n >=200 mg/dL plus symptoms is consistent with Diabetes Mellitus. Blood ARTERIAL BLOOD / Unknown 09/26/2024 4:43 PM EST 09/27/2024 7:41 AM EST Marko Dickson MD POINT OF CARE TEST O GILDA [facility] [place] [address] * (ABNORMAL) POC, GLUCOSE (09/26/2024 4:29 PM [...] CARE TEST Stephanie VO Performing Organization Address City/[facility]/ZIP Co de Phone Number [facility] [place] [address] * (ABNORMAL) Blood Gas, Venous POC (09/26/2024 [...] 1.9 - 4.5 mmol/L 09/26/2024 3:30 PM [facility] Hemoglobin, Venous 12.4(L) 13.7 - 16.5 g/dL 09/26/2024 3:30 PM [facility] Oxyhemoglobin, Venous 26.8 % 09/26/2024 3:30 PM [facility] Carboxyhemoglobin , Venous 1.0 % 09/26/2024 3:30 PM [facility] Comment: Nonsmokers: 0.5-1.5% COHB ?? Smokers: Variable ??but usually less than 10% ?? Toxic: 20-30% COHB ?? Lethal: Greater than 60% COHB Methemoglobin, Venous 0.4 <=1.5 % 09/26/2024 3:30 PM [facility] Sodium, Venous 127(L) 135 - 145 mmol/L 09/26/2024 3:30 PM [facility] Potassium, Venous 3.3(L) 3.5 - 5.0 mmol/L 09/26/2024 3:30 PM [facility] Chloride, Venous 91(L) 98 - 107 mmol/L 09/26/2024 3:30 PM [facility] Glucose, Venous 259(H) 65 - 199 mg/dL 09/26/2024 3:30 PM [facility] Comment:Glucose Concentratio n >=200 mg/dL plus symptoms is consistent with Diabetes Mellitus. Lactate, Venous 2.2 0.5 - 2.2 mmol/L 09/26/2024 3:30 PM [facility] Ionized Calcium, Venous 1.09(L) 1.15 - 1.33 mmol/L 09/26/2024 3:30 PM [facility] Blood VENOUS BLOOD SPECIMEN / Unknown 09/26/2024 3:28 PM EST 09/26/2024 3:30 PM EST Marko Dickson MD POINT OF CARE TEST O RDERABLES [facility] [place] [address] * (ABNORMAL) Scan, Peripheral Blood (09/26/2024 2:39 PM EST) [facility] RBC Morphology Abnormal 09/26/2024 3:21 PM EST [...] MD HEMATOLOGY ORDERABLE S Performing Organization Address City/[facility]/ZIP Co de Phone Number [facility] [place] [address] * ABORH RECHECK (PATIENT HISTORY FOUND) (09/26/2024 2:39 PM EST) [facility] ABORH Recheck Progress Complete 09/26/2024 5:01 PM EST [facility] Blood VENOUS BLOOD SPECIMEN / Unknown Venipuncture / Unknown 09/26/2024 2:39 PM EST 09/26/2024 2:56 PM EST Marko Dickson MD BLOOD BANK LAB ORDER RANDELL Performing Organization Address City/[facility]/ZIP Co de Phone Number [facility] [place] [address] * (ABNORMAL) Hepatic Function Panel (09/26/2024 2:39 PM EST) [facility] Albumin 3.1(L) 3.2 - 5.2 g/dL 09/26/2024 4:23 PM [facility] Aspartate Aminotransferase 16 <=39 unit/L 09/26/2024 4:23 PM [facility] Alanine Aminotransferase 14 0 - 55 unit/L 09/26/2024 4:23 PM [facility] Alkaline Phosphatase 160(H) 40 - 130 unit/L 09/26/2024 4:23 PM [facility] Bilirubin, Total 0.4 <=1.3 mg/dL 09/26/2024 4:23 PM [facility] Bilirubin, Direct 0.2 0.0 - 0.3 mg/dL 09/26/2024 4:23 PM [facility] Protein, Total 7.0 6.1 - 8.0 g/dL 09/26/2024 4:23 PM [facility] Blood VENOUS BLOOD SPECIMEN / Unknown Venipuncture / Unknown 09/26/2024 2:39 PM EST 09/26/2024 2:50 PM EST Marko Dickson MD CHEMISTRY ORDERABLES [facility] [place] [address] * (ABNORMAL) Basic Metabolic Panel (09/26/2024 2:39 PM EST) Glucose 254(H) 65 - 199 mg/dL 09/26/2024 4:32 PM [facility] Comment:Glucose Concentratio n >=200 mg/dL plus symptoms is consistent with Diabetes Mellitus. Blood Urea Nitrogen 9(L) 10 - 20 mg/dL 09/26/2024 4:32 PM [facility] Creatinine 0.55(L) 0.80 - 1.50 mg/dL 09/26/2024 4:32 PM [facility] Sodium 127(L) 135 - 145 mMol/L 09/26/2024 4:32 PM [facility] Potassium 3.4(L) 3.5 - 5.0 mMol/L 09/26/2024 4:32 PM EST [facility] Chloride 89(L) 98 - 107 mMol/L 09/26/2024 4:32 PM EST [facility] Carbon Dioxide 25 22 - 31 mMol/L 09/26/2024 4:32 PM [facility] Anion Gap 13 5 - 15 [...] ORDERABLES [facility] [place] [address] * (ABNORMAL) CBC (with Diff) (09/26/2024 2:39 PM EST) White Blood Cell 22.76(H) 4.00 - 9.50 x10(3)/mc L 09/26/2024 3:21 PM EST [facility] Red Blood Cell 4.20(L) 4.58 - 5.54 x10(6)/mc L 09/26/2024 3:21 PM [facility] Hemoglobin 12.3(L) 13.7 - 16.5 g/dL 09/26/2024 3:21 PM [facility] Hematocrit 35.0(L) 40.5 - 48.5 % 09/26/2024 3:21 PM [facility] Mean Cell Volume 83.3 82.9 - 93.1 fL 09/26/2024 3:21 PM [facility] Mean Cell Hemoglobin 29.3 27.5 - 32.1 pg 09/26/2024 3:21 PM [facility] Mean Cell Hemoglobin Concentration 35.1 32.0 - 35.7 g/dL 09/26/2024 3:21 PM [facility] Platelet 277 145 - 357 x10(3)/mc L 09/26/2024 3:21 PM [facility] Mean Platelet Volume 9.6 7.6 - 12.9 fL 09/26/2024 3:21 PM [facility] RDW Standard Deviation 37.9 36.0 - 45.0 fL 09/26/2024 3:21 PM [facility] RDW coefficient of variation 12.6 11.4 - 13.8 % 09/26/2024 3:21 PM [facility] NRBC% auto 0.0 % 09/26/2024 3:21 PM [facility] NRBC Absolute <0.01 <0.01 x10(3)/mc L 09/26/2024 3:21 PM [facility] Neutrophil % 84.0 % 09/26/2024 3:21 PM [facility] Comment:This is an appended report. These results have been appended to a previously preliminary verified report. Neutrophil Absolute (ANC) - Automated 19.10(H) 1.70 - 6.10 x10(3)/mc L 09/26/2024 3:21 PM [facility] Comment:This is an appended report. These results have been appended to a previously preliminary verified report. Lymph % 6.2 % 09/26/2024 3:21 PM [facility] Comment:This is an appended report. These results have been appended to a previously preliminary verified report. Lymph Absolute 1.41 0.90 - 3.20 x10(3)/mc L 09/26/2024 3:21 PM [facility] Comment:This is an appended report. These results have been appended to a previously preliminary verified report. Monocyte % 8.1 % 09/26/2024 3:21 PM [facility] Comment:This is an appended report. These results have been appended to a previously preliminary verified report. Monocyte Absolute 1.85(H) 0.30 - 0.90 x10(3)/mc L 09/26/2024 3:21 PM [facility] Comment:This is an appended report. These results have been appended to a previously preliminary verified report. Eos % 0.0 % 09/26/2024 3:21 PM [facility] Comment:This is an appended report. These results have been appended to a previously preliminary verified report. Eos Absolute <0.04 0.00 - 0.40 x10(3)/mc L 09/26/2024 3:21 PM [facility] Comment:This is an appended report. These results have been appended to a previously preliminary verified report. Basophil % 0.5 % 09/26/2024 3:21 PM [facility] Comment:This is an appended report. These results have been appended to a previously preliminary verified report. Baso Absolute 0.11(H) 0.00 - 0.10 x10(3)/mc L 09/26/2024 3:21 PM [facility] Comment:This is an appended report. These results have been appended to a previously preliminary verified report. Immature Gran % 1.2 % 3:21 PM [facility] Comment:This is an appended report. These results have been appended to a previously preliminary verified report. Immature Gran Absolute 0.28(H) 0.00 - 0.04 x10(3)/mc L 09/26/2024 3:21 PM EST [facility] Comment:This is an appended report. These results have been appended to a previously preliminary verified report. Blood VENOUS BLOOD SPECIMEN / Unknown Venipuncture / Unknown 09/26/2024 2:39 PM EST 09/26/2024 2:50 PM EST Hayley Torres MD HEMATOLOGY ORDERABLE S [facility] [place] [address] * Phosphorus (09/26/2024 2:39 PM EST) Pathologist [facility] Phosphorus 3.2 2.5 - 4.5 mg/dL 09/26/2024 4:05 PM EST [facility] Blood VENOUS BLOOD SPECIMEN / Unknown Venipuncture / Unknown 09/26/2024 2:39 PM EST 09/26/2024 2:50 PM EST Marko Dickson MD CHEMISTRY ORDERABLES Performing Organization Address [facility] Co de Phone Number [facility] [place] [address] * (ABNORMAL) Magnesium (09/26/2024 2:39 PM EST) Magnesium 0.65(L) 0.69 - 1.07 mMol/L 09/26/2024 4:05 PM EST [facility] Blood VENOUS BLOOD SPECIMEN / Unknown Venipuncture / Unknown 09/26/2024 2:39 PM EST 09/26/2024 2:50 PM EST Marko Dickson MD CHEMISTRY ORDERABLES Performing Organization Address City/[facility]/ZIP Co de Phone Number [facility] [place] [address] * Type and screen ([facility]AB[facility]) (09/26/2024 2:39 PM EST) ABORH Type A POSITIVE 09/26/2024 3:45 PM EST [facility] PATIENT HISTORY Found 09/26/2024 3:45 PM EST [facility] Expires at [id number] on: 09/29/2024 09/26/2024 3:45 PM EST [facility] ANTIBODY SCREEN AUTOMATED Negative 09/26/2024 3:45 PM EST [facility] T&S only valid at [facility] 09/26/2024 3:45 PM EST [facility] Blood VENOUS BLOOD SPECIMEN / Unknown Venipuncture / Unknown 09/26/2024 2:39 PM EST 09/26/2024 2:56 PM EST Narrative [facility] - 09/26/2024 3:45 PM EST This Type and Screen result is only valid at the [facility] Marko Dickson MD BLOOD BANK LAB ORDER RANDELL Performing Organization Address City/[facility]/ZIP Co de Phone Number [facility] [place] [address] * (ABNORMAL) Fibrinogen (09/26/2024 2:39 PM EST) [facility] Fibrinogen >1,000(H) 200 - 393 mg/dL 09/26/2024 3:09 PM EST [facility] Comment: A fibrinogen level >100 mg/dL is adequate for hemostasis in most patients without underlying bleeding disorders. Blood VENOUS BLOOD SPECIMEN / Unknown Venipuncture / Unknown 09/26/2024 2:39 PM EST 09/26/2024 2:50 PM EST Marko Dickson MD HEMATOLOGY ORDERABLE S [facility] [place] [address] * APTT (09/26/2024 2:39 PM EST) [facility] Partial Thromboplastin Time 36 25 - 37 [...] MD HEMATOLOGY ORDERABLE S Performing Organization Address City/[facility]/ZIP Co de Phone Number [facility] [place] [address] * (ABNORMAL) Prothrombin Time (09/26/2024 2:39 PM [...] MD HEMATOLOGY ORDERABLE S Performing Organization Address City/[facility]/ZIP Co de Phone Number [facility] [place] [address] * (ABNORMAL) POC, GLUCOSE (09/26/2024 2:36 PM [...] CARE TEST O RDERABLES Performing Organization Address [facility]/ZIP Co de Phone Number [facility] [place] [address] * (ABNORMAL) Blood culture (09/26/2024 2:22 PM EST) Blood Culture Methicillin Resistant Staphylococcus aureus(Critical) VITEK 2 METHOD 10/07/2024 7:40 AM EST [facility] Comment: detected by PCR Isolate saved. If future testing is required, contact the Microbiology Dictating Transcribing Machine Servicer. Gram Stain Aerobic Bottle: Gram positive cocci [...] MICROBIOLOGY - BLOOD ORDERABLES Performing Organization Address [facility]/ZIP Co de Phone Number [facility] [place] [address] * Request For 2nd Read CT Lower Extremity (09/26/2024 1:50 PM EST) WORKSTATION ID [id number] DH RAD Anatomical Region Laterality Modality Hip, [...] coordinator that requested your imaging first. ? Electronically signed by: Lisette Bruno MD, [facility] ([phone]), at 09/26/2024 3:01 PM Narrative 09/26/2024 3:01 PM EST EXAMINATION: REQUEST FOR 2ND READ CT LOWER EXTREMITY CLINICAL HISTORY: Pt s/p LLE femoral-below knee popliteal bypass with PTFE graft, c/f infection surrounding graft, [place] [facility] [place]; Sending Institution [facility]; Date of exam [id number]; I believe a [...] on series 3, image 8 and 641, 682, 703, 522. No other rim-enhancing fluid collection is seen. [...] c/f infection surrounding graft, en route [place] [facility] [place] intervention; Sending Institution [facility]; Date of exam [id number]; Ibelieve a reinterpretation [...] on series 3, image 8 and 641, 342,979, 922. No other rim-enhancing fluid collection is seen. [...] care coordinator that requested your imaging first. Electronically signed by: Lisette Bruno MD, [facility]([phone]), at 09/26/2024 3:01 PM Marko Dickson MD [...] at 191, Constipation, Give if no BM 24 hr [...] on 10/07/24 at 0915, Until Discontinued, Routine protriptyline (Vivactil) [...] 2115 (New Bag - Provider: Lauren Zavala DAVID)214 (Stopped - Provider: Lauren Zavala, DAVID) DAPTOmycin [...] Terell Araiza, RN)1516 (Stopped - Provider: Terell Araiza, RN) heparin (porcine) (5,000 units/1 mL) subcutaneous injection 5,000 Units 5,000 Units, Subcutaneous, EVERY 8 HOURS SCHEDULED, First dose on Wed09/26/24 at 2200, Until Discontinued, Routine 0604 (Given - Provider: Misael Bo RN)1420 (Given - Provider: Indira Tracey RN)2157 (Given - Provider: Jordyn Navas, DAVID) 0615 (Given - Provider: Jordyn Navas, DAVID)1415 (Given - Provider: Indira Tracey RN)2116 (Given - Provider: Lauren Zavala RN) 0605 (Given - Provider: Lauren Zavala, DAVID)1446 (Given - Provider: Terell Araiza, RN) insulin glargine-ygfn (Semglee) (100 unit/mL) subcutaneous injection vial 25 Units 25 Units, Subcutaneous, 2 TIMES DAILY, First dose (after last modification) on Wed09/28/24 at 0900, Until Discontinued, Routine 0903 (Given - Provider: Indira Tracey RN)2030 (Given - Provider: Jordyn Navas RN) 09 (Given - Provider: Jaja Diallo RN)202 (Given - Provider: Lauren Zavala, DAVID) 0834 (Given - Provider: Terell Araiza, RN) [...] Indira Tracey RN)1754 (Given - Provider: Indira Tracey, DAVID) 0800 (Given - Provider: Jaja Diallo RN)1409 (Given - Provider: Indira Tracey RN - Comment: patient ate late lunch)1810 (Given - Provider: Indira Tracey RN) 0834 (Given - Provider: Terell Araiza RN)1333 (Given - Provider: Terell Araiza RN)1700 [...] - Reason: Patient/family refused)0903 (Given - Provider: aJja Diallo, DAVID)1225 (Given - Provider: Indira Tracey [...] Jaja Diallo RN)2022 (Given - Provider: Lauren Zavala, DAVID) 0831 (Given - Provider: Terell Araiza [...] Lauren Zavala RN - Reason: Patient/family refused) 09 (Not Given - Provider: Terell Araiza RN [...] RN) 0902 (Given - Provider: Jaja Diallo, RN) 0832 (Given - Provider: Terell Araiza, DAVID) [...] at 0931, Until Wed10/10/24 at 1911, Pain, Breakthrough pain rescue dose, For moderate or severe pain (4-10) unrelieved at least 60 minutes after initial PRN dose was administered Max 3 doses/24 hours. If pain still unrelieved after 3rd rescue dose within 24 hours, contact provider. If multiple routes of administration ordered, oral route first line., Routine 147 (Given - Provider: oJrdyn Navas RN)2022 (Given - Provider: Lauren Zavala [...] Routine documented in this encounter Care Teams Chemical Project Engineer Relationship Specialty Start Date End Date Charles Romero [place] [address] PCP - General Internal Medicine 09/18/24 documented as of this encounter
--- OUTSIDE RECORDS SUMMARY | 2024-10-20 12:47 | XMS_ITS | Encounter Summary ---
Author Organization [facility] [place] [address] Care Team Providers Care Manager Financial Services Name Role Phone Charles Romero Primary Care Provider + Reason for Visit * Auth/Cert (Routine) Specialty Diagnoses / Procedures Referred By William moses Referred To Contact Diagnoses Vascular graft infection, initial encounter Sepsis [A41.9] T82.7XXA Procedures EMERGENCY IPI Angel Gonsalez MD [facility] [place] [address] [facility] Referral ID Status Reason Start Date Expiration Date Visits Re quested Visits Authorized [id number] 1 1 Encounter Details Date Type Department Care Team (Late st Contact Info) Description 09/26/2024 3:53 PM EST Anesthesia Event [place] [address] Marco Santana MD [facility] [place] [address] Sigrid Chatman DO [facility] [place] [address] Anesthesia Record Procedure Summary Procedure Name Responsible Anesthesiologist Anesthesia Start Time Anesthesia Stop Time EXCISION OF INFECTED GRAFT FROM LOWER EXTREMITY (WRVU 9.53) (Left: Groin) Marco Santana MD 09/26/24 1553 09/26/24 1825 Events Date Time Event Comment 09/26/2024 1509 1552 AN Verify 1553 Start 1553 An Start Data 1600 An Induction 1602 An Intubation 1618 Anesthesia Ready 1816 Extubation/LMA Out 1825 an stop data 1825 Recovery or ICU Handoff Bronwyn ent care was transferred to the destination unit staff after review of the patient's medical history, current anesthetic/surgical status and plan, according to the Provider Handoff Checklist. 1825 Stop Meds Name Total fentaNYL 100 mcg propofoL 300 mg rocuronium 150 mg succinylcholine 100 mg sugammadex 200 mg ondansetron 4 mg vancomycin (Vancocin) 1 gram in sodium c hloride 0.9% 250 mL infusion 1 g piperacillin-tazobactam (Zos yn) 3.375 g vial attach to sodium chloride 0.9% 50 mL Mini-Bag Plus 3.375 g HYDROmorphone 2 mg labetalol 5 mg lactated ringers 700 mL Plasmalyte-A 400 mL * Agents Name O2 * Blood No blood administrations on file. Lines, Drains, and Airways Type Details Placement Removal Incision 09/26/24; 1650; Left ; groin 09/26/24 1650 by Candie Tatum RN Incision 09/26/24; 1700; Left , medial, lower; leg 09/26/24 1700 by Candie Tatum RN Incision 09/26/24; 1726; Left , medial; thigh 09/26/24 1726 by Linda Pollock RN Wound 07/15/24; 1900; Y; L eft; first toe; neuropathic wound/ulcer; LDA not present upon assessment; 09/26/24; 1752 07/15/24 1900 by Jay Ignacio RN 09/26/24 175 by Pamela Eli RN Wound 07/15/24; 1900; Y; L eft; fifth toe; neuropathic wound/ulcer; LDA not present upon assessment; 09/26/24; 17507/15/24 1900 by Jay Ignacio RN 09/26/24 1752 by Pamela Eli RN Incision 07/19/24; 0946; Left ; second toe; 10/06/24; 0942 07/19/24 0946 by Alan Tobias RN 10/06/24 0942 by Liana Mccormack RN PIV 08/01/24; 0637; cwzr-tux-nyckco catheter system; 20 gauge; metacarpal vein (top of hand), left; Anatomical Landmarks; brian hogue; distraction, tolerated well, appears comfortable; LDA not present upon assessment; 09/26/24; 1533 08/01/24 0637 by Brian Hogue, RN 09/26/24 1533 by Pamela Eli RN PIV 08/01/24; 0750; 18 gauge; cephalic vein (lateral side of arm), right; Lynnette; LDA not present upon assessment; 09/26/24; 1533 08/01/24 0750 by Marko Mckeon CRNA 09/26/24 1533 by Pamela Eli RN PIV 09/26/24; 1200; vzsg-xlb-gqflwv catheter system; 18 gauge; median cubital vein (antecubital fossa), left; [facility]; site symptomatic; 10/04/24; 1100 09/26/24 1200 by Pamela Eli RN 10/04/24 1100 by Liana Mccormack RN PIV 09/26/24; 1534; 20 gauge; basilic vein (medial side of arm), right; site symptomatic; 10/04/24; 1100 09/26/24 1534 by Pamela Eli RN 10/04/24 1100 by Liana Mccormack RN ETT Mask Ventilation: No t Attempted (0); ETT Type: Cuffed, Oral; ETT Size: 8 mm; Mac Blade: 4; Notes: Asleep, Pre-O2, Stylette, RSI; Attempts: 1; Laryngoscopy Grade: 1; ETT Placement Verified By: Auscultation, Capnometry, Visual; Secured at Teeth: 22 cm; Inserted by: Jonnathan Hernandez; Removal Date: 09/26/24; Removal Time: 181509/26/24 1603 by Jules Christopher CRNA 09/26/24 1816 by Jules Christopher CRNA Arterial Line 09/26/24; 1606; radi al artery, left; 20 gauge; Anatomical Landmarks; continuous blood pressure monitoring, frequent blood gas measurement; Gio Christopher stunner animal; Sterile Prep, Sterile Gloves; 09/28/24; 0200 09/26/24 1606 by Jules Christopher, LABOR RELATIONS WORKER 09/28/24 0200 by Mariya Shi RN PIV 09/26/24; 1620; dohi-eng-fdogno catheter system; 14 gauge; median cubital vein (antecubital fossa), right; Ultrasound Guidance; Pat Esther; 10/02/24; 1000 09/26/24 1620 by Jules Christopher CRNA 10/02/24 1000 by Cyndi Castro RN Urethral Catheter 09/26/24; 1620; Surg wei longer than 2 hours, Physician order, Need for intraoperative urine output monitoring; Immobility without alternative; indwelling double lumen catheter; hydrophilic coated, latex; 14; inserted at [facility]; 1; 5; 10; none; drainage bag; 10/03/24; 1102 09/26/24 1620 by Candie Tatum RN 10/03/24 1102 by Audrey Valdes RN Open Drain 09/26/24; 1806; Left ; Thigh; (1 inch yung) 09/26/24 1806 by Linda Pollock RN 09/27/24 1703 by Ignacia Vazquez RN Intentionally Retained Foreign Objects 09/26/24; 180; Dr Torres; (Left Groin); Betadine soaked single piece of kerlix, 1 small piece of white wound vac sponge; 09/27/24; 1700 09/26/24 1809 by Linda Pollock RN 09/27/24 1700 by Ignacia Vazquez RN Intentionally Retained Foreign Objects 09/26/24; 1810; Dr Torres; (Leg); Medial; betadine soaked one portion of kerlix; 09/27/24; 1700 09/26/24 1810 by Linda Pollock RN 09/27/24 1700 by Ignacia Vazquez RN documented in this encounter Social History Tobacco Use Types Packs/Day Years Used Date Smoking Tobacco: Every Day Cigarettes 1 25 Started: 12/28/1986; Last attempted to quit: 12/28/2011 Smokeless Tobacco: Never Alcohol Use Standard Drinks/Week Comments No 0 (1 standard drink = 0.6 oz pur e alcohol) [facility] Utilities Answer Date Recorded In [...] any time in the past 12 [facility], were you homeless or living in a nursing home (including now)? No 09/27/2024 IPV Inpatient [...] OR Notes * Anesthesia Postprocedure Evaluation - Marco Santana MD - 09/26/2024 6:42 PM EST Department of Anesthesiology Post-procedure Note Patient: Lux Dixon Jr. Procedure Summary Date: 09/26/24 Room / Location: [facility] OR / [facility] MAIN OR Anesthesia Start: 155 Anesthesia Stop: 182 Procedure: EXCISION OF INFECTED GRAFT FROM LOWER EXTREMITY (WRVU 9.53) (Left: Groin) Diagnosis: (left infected femoral to below knee bypass graft) Surgeons: Hayley Torres MD Responsible Provider: Marco Santana MD Anesthesia Type: general ASA Status: 3 - Emergent All Anesthesia Providers: Anesthesiologist: Marco Santana MD; Jonnathan Hernandez MD LABOR RELATIONS WORKER: Jules Christopher CRNA Vitals Value Taken Time BP 135/86 09/26/24 1830 Temp 37 ??C (98.6 ??F) 09/26/24 183 Pulse 98 09/26/24 1842 Resp 20 09/26/24 1842 SpO2 96 % 09/26/24 1842 Pain Level 1 09/26/24 1835 Vitals shown include unfiled device data. Patient [...] planned.) Comments: * Anesthesia Preprocedure Evaluation - Jonnathan Hernandez MD - 09/26/2024 2:48 PM EST Pre-Anesthesia Evaluation for: Lux Dixon Jr. a 49 y.o. male. Procedure(s): EXCISION OF INFECTED GRAFT FROM LOWER EXTREMITY (WRVU 9.53) Patient Active Problem List Diagnosis Date Noted [...] 3.51) performed by Thony Garcia MD at [facility] MAIN OR ??? PRO BYPASS GRAFT OTHR, FEM-TIBIAL Left 08/01/2024 @BYPASS GRAFT, FEM-ANT TIBIAL, -POST TIBIAL, -PERONEAL, -DP W\ SYNTHETIC CONDUIT (WRVU 23.66) performed by Lisette Maldonado MD at [facility] MAIN OR ??? PRO CABG, ARTERY-VEIN, SINGLE 01/04/2012 @CABG, VENOUS & ARTERIAL GRAFT;SINGLE VEIN GRAFT performed by INNA TOVAR at [facility] MAIN OR ??? PRO ENDOSCOPY W/VIDEO-ASST VEIN HARVEST, CABG 01/04/2012 ENDOSCOPIC HARVEST VEIN(S) FOR CABG performed by INNA TOVAR at [facility] MAIN OR ??? VS ARTERIOGRAM LOWER EXTREMITY VASCULAR SURGERY 07/20/2024 VS Arteriogram Lower Extremity Vascular Surgery 07/20/2024 Taylor Ruiz MD [facility] INTERVENTIONL RAD Social History Tobacco Use ??? [...] Physical Exam: Preprocedure Vitals Current as of 09/26/24 1448 BP: 127/84 Pulse: 108 Resp: 20 SpO2: Temp: 36.8 ??C (98.2 ??F) Height: Weight: BMI: IBW: Last edited 09/26/24 1410 by EK Airway Assessment: Mallampati: II Cardiovascular Assessment: Rhythm: regular Rate: normal Pulmonary Assessment: unlabored breathing Dental Assessment: (+) edentulous Misc Assessment: IV access: Peripheral line Last Filed Perioperative Cognitive Screening Value Time User 4AT TOTAL Score: 0 05/31/2024 7:25 PM Maribel Quinn RN Anesthesia Plan: ASA 3 emergent general, with a(n) intravenous induction 49 y.o.male (100 kg/BMI 32) h/o HTN, HL, DM2, (SGLT2i), depression, CAD s/p 2v CABG (2011, SVG to PDA known closed 08/2013), tobacco use, cocaine use, obesity, narcolepsy, and chronic limb ischemia of LLE s/p toe amps and LLE bypass graft for excision of infected L fem-below popliteal graft. Patient denies significant GERD, recent URI [...] 48 % (normal greater than than 50%). Patient Active Problem List: HTN (hypertension) [I10] Hyperlipidemia [E78.5] Depression [F32.A] Narcolepsy [G47.419] 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 (SVG to PDA closed 08/2013) [I25.10] NSTEMI (non-ST elevated myocardial infarction) [I21.4] Diabetes mellitus [E11.9] Obesity [E66.9] Critical limb ischemia of left lower extremity [I70.222] Peripheral artery disease [I73.9] PAD (peripheral artery disease) [I73.9] Vascular graft infection, initial encounter [T82.7XXA] Plan: GETA, RSI, A-line, large bore PIV. Risks, benefits, and alternatives discussed with patient including but not limited to dental, airway, lip injury, vascular injury, nerve injury, thrombosis, eye injury, blindness, adverse drug reactions, heart attack, stroke, intraoperative demise among others. All questions answered to patients sat isfaction. Region - [facility] Informed Consent: Anesthetic plan and risks discussed with patient. Use of blood products discussed with patient who consented to blood products. Plan discussed with LABOR RELATIONS WORKER. Anesthesia Screening documented in this encounter Plan of Treatment Upcoming Encounters Date Type Department Care Team (Late st Contact Info) Description 10/23/2024 1:00 PM EST Appointment XRay at [address] [place] [address] Isabela Hayward, MICA LAYER [facility] [place] [address] 11/09/2024 1:30 PM EST Office [place] [address] Isabela Hayward, [facility] [place] [address] 11/10/2024 10:00 AM EST Office [place] [phone] Dai Whitman APRN 11/21/2024 2:15 PM EST Office [place] [phone] Dayanara Grover MD [facility] [place] [address] documented as of this encounter Visit Diagnoses Not on filedocumented in this encounter Administered Medications Inactive Administered Medications - up to 3 most recent administrations Medication Order MAR Action Action Date Dose Rate Site electrolyte replacement solution (pH 7.4) (Normosol-R, Plasmalyte-A) infusion Intravenous, CONTINUOUS PRN, Starting on Wed09/26/24 at 1615, Until Wed09/26/24 at 1825, Anesthesia Intra-op New Bag 09/26/2024 4:15 PM EST fentaNYL (pf) (50 mcg/mL) multi-dose injection Intravenous, PRN, Starting on Wed09/26/24 at 1559, Until Wed09/26/24 at 1825, Anesthesia Intra-op, Routine Given 09/26/2024 4:20 PM EST 50 mcg Given 09/26/2024 3:59 PM EST 50 mcg HYDROmorphone (Dilaudid) (2 mg/mL) multi-dose injection solution Intravenous, PRN, Starting on Wed09/26/24 at 1653, Until Wed09/26/24 at 1825, Anesthesia Intra-op, Routine Given 09/26/2024 5:35 PM EST 0.5 mg Given 09/26/2024 5:15 PM EST 0.5 mg Given 09/26/2024 4:53 PM EST 1 mg labetaloL (Normodyne) (5 mg/mL) multi-dose injection Intravenous, PRN, Starting on Wed09/26/24 at 1740, Until Wed09/26/24 at 1825, Anesthesia Intra-op, Routine Given 09/26/2024 5:40 PM EST 5 mg lactated ringers infusion Intravenous, CONTINUOUS PRN, Starting on Wed09/26/24 at 1557, Until Wed09/26/24 at 1825, Anesthesia Intra-op New 09/26/2024 3:57 PM EST ondansetron (pf) (Zofran) (2 mg/mL) injection Intravenous, PRN, Starting on Wed09/26/24 at 1810, Until Wed09/26/24 at 1825, Anesthesia Intra-op, Routine Given 09/26/2024 6:10 PM EST 4 mg piperacillin-tazobactam (Zosyn) 3.375 g vial attach to sodium chloride 0.9% 50 mL Mini-Bag Plus 3.375 g, Intravenous, EVERY 8 HOURS, 5 doses, First dose on Wed09/26/24 at 1500, Last dose on Wed09/27/24 at 1500, Administer over 4 Hours, Warning Vesicant/Irritant Medication Per electrical laboratory technician labeling, do not administer or Y-site with lactated ringers., Indication for (Active or Suspected): Other (See comment) / PTFE vascular graft associated infection Bolus 09/27/2024 3:47 PM EST 3.375 g New Bag 09/27/2024 2:45 PM EST 3.375 g 12.5 mL/hr New Bag 09/27/2024 6:09 AM EST 3.375 g 12.5 mL/hr propofoL (Diprivan) 10 mg/mL bolus injection (Anesthesia) Intravenous, PRN, Starting on Wed09/26/24 at 1600, Until Wed09/26/24 at 1825, Anesthesia Intra-op Given 09/26/2024 5:15 PM EST 50 mg Given 09/26/2024 4:21 PM EST 50 mg Given 09/26/2024 4:09 PM EST 50 mg rocuronium (Zemuron) (10 mg/mL) multi-dose injection Intravenous, PRN, Starting on Wed09/26/24 at 1612, Until Wed09/26/24 at 1825, Anesthesia Intra-op, Routine Given 09/26/2024 5:32 PM EST 20 mg Given 09/26/2024 5:14 PM EST 30 mg Given 09/26/2024 4:12 PM EST 100 mg succinylcholine (Anectine;Quelicin) (20 mg/mL) injection Intravenous, PRN, Starting on Wed09/26/24 at 1600, Until Wed09/26/24 at 1825, Anesthesia Intra-op, Routine Given 09/26/2024 4:00 PM EST 100 mg sugammadex (Bridion) 100 mg/mL injection Intravenous, PRN, Starting on Wed09/26/24 at 1810, Until Wed09/26/24 at 1825, Anesthesia Intra-op, Routine Given 09/26/2024 6:10 PM EST 200 mg vancomycin (Vancocin) 1 gram in sodium [...] 3:30 PM EST 1 g 250 mL/hr documented in this encounter Care Teams Manager Financial Services Relationship Specialty Start Date End Date Charles Romero [place] [address] PCP - General Internal Medicine 09/18/24 documented as of this encounter
--- OUTSIDE RECORDS SUMMARY | 2024-10-20 12:47 | XMS_ITS | Encounter Summary ---
Author Organization Formerly [facility] [place] [address] Care Team Providers Care Compliance Administrator Name Role Phone Charles Romero Primary Care Provider + Reason for Visit * Auth/Cert (Routine) Specialty Diagnoses / Procedures Referred By William moses Referred To Contact Diagnoses Vascular graft infection, initial encounter Sepsis [A41.9] T82.7XXA Procedures EMERGENCY IPI Angel Gonsalez MD [facility] [place] [address] [facility] Referral ID Status Reason Start Date Expiration Date Visits Re quested Visits Authorized [id number] 1 1 Encounter Details Date Type Department Care Team (Late st Contact Info) Description 09/27/2024 3:10 PM EST - 09/27/2024 5:00 PM EST Surgery [place] [address] Hayley Torres MD [facility] [place] [address] DEBRIDEMENT SKIN AND SUBCU, LOWER EXTREMITY (WRVU [...] living in a m[facility]p (including now)? No 09/27/2024 DH IPV Inpatient [...] Sign Reading Time Taken Comments Blood Pressure 130/83 09/26/2024 3:01 PM EST Pulse 117 09/27/2024 3:00 PM EST Temperature 37.1 ??C (98.8 ??F) 09/27/2024 2:00 PM ES T Respiratory Rate 18 09/27/2024 3:00 PM EST Oxygen Saturation 94% 09/27/2024 3:00 PM EST Inhaled Oxygen Concentration - - Weight 101.8 kg (224 lb 6.9 oz) 09/27/2024 6:00 AM EST Height 179.1 cm (5' 10.51) [...] Operations/Major Procedures: 09/26/24: Explant of infected LEFT METAL WORK DUCT INSTALLER to below-knee popliteal artery PTFE bypass graft [...] pericardial patch and PTFE willard over the METAL WORK DUCT INSTALLER was unincorporated. - Resection of prior femoral [...] Sartorius flap healthy and starting to adhere. Bladen drains removed with replacement of 15 Fr [...] 2 tablespoons of dried fruit. Milk and hq-jupjd-qpkqm yogurt have 15 grams of carbs in a serving. A serving is 1 cup of milk or 3/4 cup (6 oz) of wk-ygghb-nnsiw yogurt. Starchy vegetables have 15 grams of carbs in a serving. A serving is ?? cup of mashed potatoes or sweet potato; 1 cup winter squash; ?? of a small baked potato; ?? cup of cooked beans; or ?? cup cooked corn or green peas. Learn how much carbs to eat each day and at each meal. A dietitian or certified optician can teach you how to keep track [...] was scheduled for a f/u nutrition evaluation. Shop Foreman met pt at bedside. Pt sharedthat his [...] Based on current findings- home (sister & qraeanj-vw-erm's home) Consult Recommendations: No other consults recommended [...] Loss: None Karolyn Hudson MD Vascular Surgery, 0699 10/09/24 Important Studies and Lab Data: Labs: [...] 05/29/2024, no significant changes. Procedure Limited - 49332. Doppler - 49363. Color Doppler - 41170. Suboptimal quality. This study is limited because [...] on series 3, image 8 and 641, 792, 453, 102. No other rim-enhancing fluid collection is seen. [...] Hayward APRN Infectious Disease at [facility] Arrive at: Home [phone] To view instructions for your video visit, click here, or visit this website: [email or web address] If you have not previously downloaded the [facility] patient portal software, YouNoodle, please do so by clicking one of the links below or searching in your device's lobito store. [employer] devices 11/09/2024 1:30 PM Isabela Hayward APRN Infectious Disease at [facility] Arrive at: Mine Motor Engineer Area [phone] 11/21/2024 2:15 PM Dayanara Grover MD Endocrinology at [facility] Arrive at: Mine Motor Engineer Area 3A [phone] Future Orders Complete By Expires CBC (with Diff) [QEY321 Custom] 10/17/2024 12/11/2024 Process Instructions: INCLUDES: WBC, RBC, Hgb, Hct, Platelets, RBC Indices and Differential Scheduling Instructions: Comments: Questions: OPAT: Order / Recommendation for Post Discharge IV Antibiotic Management [GYX588 CPT(R)] As directed Process Instructions: If no progress note charted, please enter Clinical details in comments. Scheduling Instructions: Comments: - If this order was signed greater than 72 hours prior to [facility] discharge, please call to confirm the accuracy of this order. Please Fax all results to: OPAT Program Infectious Disease Section [facility], [place] [address] FAX: - After hours, please contact the Infectious Disease Physician health education aide at . - Line care instructions - see flush/heparin orders. Facilities may follow organizational policies/practices regarding heparin. - prison for medication administration/alumina plant supervisor and catheter care/maintenance authorized. - CVC/PICC Dressing Change weekly and PRN Please use CHG or Bio Patch RN: Please care for PICC line including dressing changes weekly and prn. Please draw labs every Wednesday and PRN and fax results to OPAT at [phone]. Please draw labs off [facility]. [facility]. Please RN visit for IV ABX teaching and ongoing assessment. Senior Living for Medication Administration/Hookup and catheter care/maintenance: - [...] Amaya Hernandez MD Referral for Outpatient Antibiotics [IRZ3917 CPT(R)] As directed Process Instructions: Scheduling Instructions: [...] Jr. for admission to Home Health. [address] [facility] [address] Phone Number: [phone] (home) Date of : 1975 Inpatient DOCUMENTATION FOR VNA SERVICES (INCLUDING THOSE PATIENTS WITH MEDICARE COVERAGE REQUIRING HOME VNA SERVICES AND/OR HOSPICE SERVICES) PATIENT'S LOCATION: Geovanna Dixon Jr. [address] [facility] [address] [phone] (home) Cell: Telephone Information: Loss Prevention Supervisor's Name: Geovanna In discussion with the attending physician, it is certified that this patient is under their care and that they, or a Nurse Practitioner, Clinical Nurse specialist or Physician Hog Operator who is working directly with them, had [...] for managing ADLs. HOME HEALTH CARE AGENCY: [facility] [address] [place] [address] START OF CARE: within 24-48 hours of discharge Patient has Medicare Please note that any additional orders needs or changes will need to be obtained from this patient's PCP: JUSTIN Roberson [address] [facility] [address] . All VNA agencies which cover the area of patient's residence have been reviewed, either verbally or in writing, andpatient/family have chosen the home health care agency noted. Questions: Disciplines Requested: Nursing Physical Therapy Occupational Therapy Recurring Lab Work Interval Expires CBC (with Diff) [QTH937 Custom] Once a week until 12/10/2024 12/10/2024 [...] For any problems or questions please call [phone] For issues on weeknights after 5pm and weekends please call [phone] and ask for the Vascular Fellow health education aide. Discharge Medications: Your Medications New Medications Dose [...] - See Instructions). FLUSH PROTOCOL WITH MEDICATIONS ([facility]): Before med infusion: flush with NS 10 [...] - See Instructions). FLUSH PROTOCOL WITH MEDICATIONS ([facility]): Before med infusion: flush with NS 10 [...] this completed at 3L at [facility] prior to your scheduled appointment. Stop atorvastatin [...] For any problems or questions please call [phone] For issues on weeknights after 5pm and weekends please call [phone] and ask for the Vascular Fellow health education aide. documented in this encounter Discharge Instructions * [...] 2 tablespoons of dried fruit. Milk and is-gzykk-futkh yogurt have 15 grams of carbs in a serving. A serving is 1 cup of milk or 3/4 cup (6 oz) of hn-idofe-kusih yogurt. Starchy vegetables have 15 grams of carbs in a serving. A serving is ?? cup of mashed potatoes or sweet potato; 1 cup winter squash; ?? of a small baked potato; ?? cup of cooked beans; or ?? cup cooked corn or green peas. Learn how much carbs to eat each day and at each meal. A dietitian or certified optician can teach you how to keep track [...] this completed at 3L at [facility] prior to your scheduled appointment. Stop atorvastatin [...] For any problems or questions please call [phone] For issues on weeknights after 5pm and weekends please call [phone] and ask for the Vascular Fellow health education aide. documented in this encounter Medications at Time [...] the vein daily for 32 days. EOT 1/3/25 64 each 10/09/2024 11/10/2024 sodium chloride 0.9 %, flush, (BD PosiFlush Normal Saline 0.9) Syringe Inject 10 mLs into the vein as needed (For Line Patency - See Instructions). FLUSH PROTOCOL WITH MEDICATIONS ([facility]): Before med infusion: flush with NS 10 [...] - See Instructions). FLUSH PROTOCOL WITH MEDICATIONS ([facility]): Before med infusion: flush with NS 10 [...] to contact. Reviewed roles and responsibilities of INSURANCE BILLING SPECIALIST and infusion vendor. Contact information for ID and Vascular team/clinic, INSURANCE BILLING SPECIALIST and infusion vendor given to pt. Discussed f/u appointments in ID 5C clinic, telephone and tele health. Pt verbalized understanding. All questions answered. IV & PO ABX Medications: Daptomycin 700mg IV daily Start/anticipated end date: 10/10/24-11/10/24 INSURANCE BILLING SPECIALIST: [employer] Infusion vendor: [facility] Care IV Access: 4 Fr. single lumen [...] 2 tablespoons of dried fruit. Milk and ng-zqdnl-mrola yogurt have 15 grams of carbs in a serving. A serving is 1 cup of milk or 3/4 cup (6 oz) of ti-mmuro-ihfms yogurt. Starchy vegetables have 15 grams of carbs in a serving. A serving is ?? cup of mashed potatoes or sweet potato; 1 cup winter squash; ?? of a small baked potato; ?? cup of cooked beans; or ?? cup cooked corn or green peas. Learn how much carbs to eat each day and at each meal. A dietitian or certified optician can teach you how to keep track [...] this time. OT to complete orders. Pager: [phone] Fabián Burrows OT 10/09/2024 Occupational Therapy Rehabilitation [...] Loss: None Karolyn Hudson MD Vascular Surgery, 8194 10/09/24 * Terry Jimenez, PT - 10/09/2024 12:02 PM EST Physical Therapy Visit #2 Patient profile: Geovanna Dixon Jr. is a 49 y.o. male with a history of HTN, HLD, NSTEMI, CAD s/p CABG (12/2011), DM,obesity, PAD s/p L iliofem endart and L fem-BK pop bypass and L 2nd toe amputation who was transferred from [facility], 09/26/24 given concern for infected left fem-BK popliteal PTFE bypass. He is now s/p an explant of an infected left femoral-below knee popliteal artery bypass graft (09/26), I/D groin abscess (09/27), L GSV harvest, vein patch angioplasty, L METAL WORK DUCT INSTALLER and BK pop w/ sartorius flap L fem, I/D, 09/29 L sartorius flap revision, vac change. 10/03/24 NPO at [facility] for OR wound exploration. [...] He mentions he'll stay with sister and bumoypz-ov-bxl upon DC. Pt resting in bed upon [...] up with R and down with L, rkwk-mp-hpwq. Balance: Sitting: NORMAL- EOB unsupported good postural [...] Based on current findings- home (sister & ivbmqbq-tk-jlp's home) Consult Recommendations: No other consults recommended [...] 15 (TE-F) minutes TERRY JIMENEZ, PT Pager: [phone] Physical Therapy Inpatient Rehabilitation Department * María [...] week ago. He presented to [facility] on 09/26 and went to the OR [...] Daily heparin (porcine) 5,000 Units Subcutaneous Q8H [facility] lidocaine 1 patch Transdermal Q24H Operations this [...] Procedure Component Value - Date/Time Blood culture [[id number]] (Abnormal) (Susceptibility) Collected: 09/26/24 1422 Lab Status: Edited Result - FINAL Specimen: Blood, Venous Updated: 10/07/24 0740 Blood Culture Methicillin Resistant Staphylococcus aureus Comment: detected by PCR Isolate saved. If future testing is required, contact the Microbiology Chip Person. Gram Stain Aerobic Bottle: Gram positive cocci in clusters Susceptibility Methicillin Resistant Staphylococcus aureus MINIMUM INHIBITORY CONCENTRATION VITEK 2 METHOD Clindamycin Resistant Daptomycin Susceptible Gentamicin Susceptible [1] Linezolid Susceptible Oxacillin Resistant Trimethoprim/Sulfa Susceptible Vancomycin Susceptible [1] Gentamicin is not appropriate for monotherapy for gram-positive infections. AFB culture [[id number]] Collected: 09/27/24 1654 Lab Status: Preliminary result Specimen: Tissue from Thigh, Left Updated: 10/05/24 1201 Acid Fast Bacilli Culture No acid fast bacilli isolated at 1 week. Acid Fast Stain No acid fast bacilli seen Blood culture [[id number]] Collected: 09/29/242123 Lab Status: Final result Specimen: Blood, Venous Updated: 10/04/24 2301 Blood Culture No growth at 120 hours Blood culture [[id number]] Collected: 09/29/242123 Lab Status: Final result Specimen: Blood, Venous Updated: 10/04/24 2301 Blood Culture No growth at 120 hours AFB culture [[id number]] Collected: 09/26/24 1702 Lab Status: Preliminary result Specimen: Abscess from Knee, Left Updated: 10/04/24 1201 Acid Fast Bacilli Culture No acid fast bacilli isolated at 1 week. Acid Fast Stain No acid fast bacilli seen Blood culture [[id number]] Collected: 09/28/24 1749 Lab Status: Final result [...] L GSV harvest, vein patch angioplasty, L METAL WORK DUCT INSTALLER and BK pop w/ sartorius flap L fem, I/D, 09/29 L sartorius flap revision, vac change. 10/09/24: Progressing well post surgically. Will pull medial thigh drain today, retain sartorius flap drain along with wound vac x 3 sponges ([facility] has approved for home vac) and WTD [...] dressing change completed as per [facility] protocol. Positive pressure displacement connector (Max Plus) [...] week ago. He presented to [facility] on 09/26 and went to the OR [...] Procedure Component Value - Date/Time Blood culture [[id number]] (Abnormal) (Susceptibility) Collected: 09/26/24 1422 Lab Status: Edited Result - FINAL Specimen: Blood, Venous Updated: 10/07/24 0740 Blood Culture Methicillin Resistant Staphylococcus aureus Comment: detected by PCR Isolate saved. If future testing is required, contact the Microbiology Chip Person. Gram Stain Aerobic Bottle: Gram positive cocci in clusters Susceptibility Methicillin Resistant Staphylococcus aureus MINIMUM INHIBITORY CONCENTRATION VITEK 2 METHOD Clindamycin Resistant Daptomycin Susceptible Gentamicin Susceptible [1] Linezolid Susceptible Oxacillin Resistant Trimethoprim/Sulfa Susceptible Vancomycin Susceptible [1] Gentamicin is not appropriate for monotherapy for gram-positive infections. AFB culture [[id number]] Collected: 09/27/24 165 Lab Status: Preliminary result Specimen: Tissue from Thigh, Left Updated: 10/05/24 1201 Acid Fast Bacilli Culture No acid fast bacilli isolated at 1 week. Acid Fast Stain No acid fast bacilli seen Blood culture [[id number]] Collected: 09/29/242123 Lab Status: Final result Specimen: Blood, Venous Updated: 10/04/24 2301 Blood Culture No growth at 120 hours Blood culture [[id number]] Collected: 09/29/242123 Lab Status: Final result Specimen: Blood, Venous Updated: 10/04/24 2301 Blood Culture No growth at 120 hours AFB culture [[id number]] Collected: 09/26/24 1702 Lab Status: Preliminary result Specimen: Abscess from Knee, Left Updated: 10/04/24 1201 Acid Fast Bacilli Culture No acid fast bacilli isolated at 1 week. Acid Fast Stain No acid fast bacilli seen Blood culture [[id number]] Collected: 09/28/24 1749 Lab Status: Final result Specimen: Blood, Venous Updated: 10/03/24 1901 Blood Culture No growth at 120 hours Blood culture [[id number]] (Abnormal) Collected: 09/27/24 2133 Lab Status: Final result Specimen: Blood, Venous Updated: 10/02/24 0804 Blood Culture Methicillin Resistant Staphylococcus aureus Comment: Susceptibilities previously reported. Gram Stain Aerobic Bottle: Gram positive cocci in clusters Tissue Culture, Aerobic & Anaerobic [[id number]] Collected: 09/27/241653 Lab Status: Final result Specimen: Tissue from Thigh, Left Updated: 10/01/24 1554 Narrative: The following orders were created for panel order Tissue Culture, Aerobic & Anaerobic. Procedure Abnormality Status --------- ------ Tissue Culture, Aerobic ...[[id number]] Anaerobic Culture[[id number]] Final result Please view results for these tests on the individual orders. Anaerobic Culture [[id number]] Collected: 09/27/241653 Lab Status: Final result Specimen: Tissue from Thigh, Left Updated: 10/01/24 1554 Anaerobic Culture No anaerobic organisms isolated Tissue Culture, Aerobic Only [[id number]] (Abnormal) (Susceptibility) Collected: 09/27/241653 Lab Status: Final [...] L GSV harvest, vein patch angioplasty, L METAL WORK DUCT INSTALLER and BK pop w/ sartorius flap L [...] 81mg daily Vibha Benson APRN 10/08/2024 Pager: [phone] * Vibha Benson APRN - 10/07/2024 8:52 [...] week ago. He presented to [facility] [place] and went to the OR [...] Procedure Component Value - Date/Time Blood culture [[id number]] (Abnormal) (Susceptibility) Collected: 09/26/24 1422 Lab Status: Edited Result - FINAL Specimen: Blood, Venous Updated: 10/07/24 0740 Blood Culture Methicillin Resistant Staphylococcus aureus Comment: detected by PCR Isolate saved. If future testing is required, contact the Microbiology Chip Person. Gram Stain Aerobic Bottle: Gram positive cocci in clusters Susceptibility Methicillin Resistant Staphylococcus aureus MINIMUM INHIBITORY CONCENTRATION VITEK 2 METHOD Clindamycin Resistant Daptomycin Susceptible Gentamicin Susceptible [1] Linezolid Susceptible Oxacillin Resistant Trimethoprim/Sulfa Susceptible Vancomycin Susceptible [1] Gentamicin is not appropriate for monotherapy for gram-positive infections. AFB culture [[id number]] Collected: 09/27/24 1654 Lab Status: Preliminary result Specimen: Tissue from Thigh, Left Updated: 10/05/24 1201 Acid Fast Bacilli Culture No acid fast bacilli isolated at 1 week. Acid Fast Stain No acid fast bacilli seen Blood culture [[id number]] Collected: 09/29/242123 Lab Status: Final result Specimen: Blood, Venous Updated: 10/04/24 2301 Blood Culture No growth at 120 hours Blood culture [[id number]] Collected: 09/29/242123 Lab Status: Final result Specimen: Blood, Venous Updated: 10/04/24 2301 Blood Culture No growth at 120 hours AFB culture [[id number]] Collected: 09/26/24 1702 Lab Status: Preliminary result Specimen: Abscess from Knee, Left Updated: 10/04/24 1201 Acid Fast Bacilli Culture No acid fast bacilli isolated at 1 week. Acid Fast Stain No acid fast bacilli seen Blood culture [[id number]] Collected: 09/28/24 1749 Lab Status: Final result Specimen: Blood, Venous Updated: 10/03/24 1901 Blood Culture No growth at 120 hours Blood culture [[id number]] (Abnormal) Collected: 09/27/24 2133 Lab Status: Final result Specimen: Blood, Venous Updated: 10/02/24 0804 Blood Culture Methicillin Resistant Staphylococcus aureus Comment: Susceptibilities previously reported. Gram Stain Aerobic Bottle: Gram positive cocci in clusters Tissue Culture, Aerobic & Anaerobic [[id number]] Collected: 09/27/24 165 Lab Status: Final result Specimen: Tissue from Thigh, Left Updated: 10/01/24 1554 Narrative: The following orders were created for panel order Tissue Culture, Aerobic & Anaerobic. Procedure Abnormality Status --------- ------ Tissue Culture, Aerobic ...[[id number]] Anaerobic Culture[[id number]] Final result Please view results for these tests on the individual orders. Anaerobic Culture [[id number]] Collected: 09/27/24 165 Lab Status: Final result Specimen: Tissue from Thigh, Left Updated: 10/01/24 1554 Anaerobic Culture No anaerobic organisms isolated Tissue Culture, Aerobic Only [[id number]] (Abnormal) (Susceptibility) Collected: 09/27/24 165 Lab Status: [...] is considered susceptible to doxycycline. Blood culture [[id number]] (Abnormal) Collected: 09/26/24 1845 Lab Status: Final result Specimen: Blood, Venous Updated: 10/01/24 0658 Blood Culture Methicillin Resistant Staphylococcus aureus Comment: isolated. Susceptibilities previously reported. Gram Stain Aerobic Bottle: Gram positive cocci in clusters Abscess/Wound Aspirate Culture, Aerobic & Anaerobic [[id number]] (Abnormal) Collected: 09/26/241649 Lab Status: Final result Specimen: Abscess from Groin, Left Updated: 09/30/24 155 Narrative: The following orders were created for panel order Abscess/Wound Aspirate Culture, Aerobic & Anaerobic. Procedure Abnormality Status --------- ------ Abscess/Wound Aspirate C...[[id number]] Abnormal Final result Anaerobic Culture[[id number]] Final result Please view results for these tests on the individual orders. Anaerobic Culture [[id number]] Collected: 09/26/24 165 Lab Status: Final result Specimen: Abscess from Groin, Left Updated: 09/30/24 1551 Anaerobic Culture No anaerobic organisms isolated Abscess/Wound Aspirate Culture, Aerobic & Anaerobic [[id number]] (Abnormal) Collected: 09/26/24 1702 Lab Status: Final result Specimen: Abscess from Knee, Left Updated: 09/30/24 1551 Narrative: The following orders were created for panel order Abscess/Wound Aspirate Culture, Aerobic & Anaerobic. Procedure Abnormality Status --------- ------ Abscess/Wound Aspirate C...[[id number]] Abnormal Final result Anaerobic Culture[[id number]] Final result Please view results for these tests on the individual orders. Anaerobic Culture [[id number]] Collected: 09/26/24 1702 Lab Status: Final result Specimen: Abscess from Knee, Left Updated: 09/30/24 1551 Anaerobic Culture No anaerobic organisms isolated Sonicated Tissue/Implant Culture [[id number]] (Abnormal) Collected: 09/26/24 1716 Lab Status: Final result Specimen: Vascular Graft from Leg, Left Updated: 09/30/24 1349 Sonicated Tissue/Implant Culture Methicillin Resistant Staphylococcus aureus Comment: isolated from broth culture. Susceptibilities previously reported. Abscess/Wound Aspirate Culture, Aerobic Only [[id number]] (Abnormal) (Susceptibility) Collected: 09/26/24 1702 Lab Status: [...] to doxycycline. Abscess/Wound Aspirate Culture, Aerobic Only [[id number]] (Abnormal) (Susceptibility) Collected: 09/26/24 1650 Lab Status: [...] None Assessment & Plan: Geovanna Llanos Zack is a 49 y.o. male with a [...] L GSV harvest, vein patch angioplasty, L METAL WORK DUCT INSTALLER and BK pop w/ sartorius flap L [...] 81mg daily Vibha Benson APRN 10/07/2024 Pager: [phone] * Karina-Jessica Mcrae, PT - 10/06/2024 3:21 PM EST 10/06/24 6886 Evaluation & Treatment Document Type contact Comment, [...] week ago. He presented to [facility] [place] and went to the OR [...] Procedure Component Value - Date/Time AFB culture [[id number]] Collected: 09/27/241653 Lab Status: Preliminary result Specimen: Tissue from Thigh, Left Updated: 10/05/24 1201 Acid Fast Bacilli Culture No acid fast bacilli isolated at 1 week. Acid Fast Stain No acid fast bacilli seen Blood culture [[id number]] Collected: 09/29/242123 Lab Status: Final result Specimen: Blood, Venous Updated: 10/04/24 2301 Blood Culture No growth at 120 hours Blood culture [[id number]] Collected: 09/29/242123 Lab Status: Final result Specimen: Blood, Venous Updated: 10/04/24 2301 Blood Culture No growth at 120 hours AFB culture [[id number]] Collected: 09/26/24 170 Lab Status: Preliminary result Specimen: Abscess from Knee, Left Updated: 10/04/24 1201 Acid Fast Bacilli Culture No acid fast bacilli isolated at 1 week. Acid Fast Stain No acid fast bacilli seen Blood culture [[id number]] Collected: 09/28/24 1749 Lab Status: Final result Specimen: Blood, Venous Updated: 10/03/24 1901 Blood Culture No growth at 120 hours Blood culture [[id number]] (Abnormal) Collected: 09/27/242132 Lab Status: Final result Specimen: Blood, Venous Updated: 10/02/24 0804 Blood Culture Methicillin Resistant Staphylococcus aureus Comment: Susceptibilities previously reported. Gram Stain Aerobic Bottle: Gram positive cocci in clusters Tissue Culture, Aerobic & Anaerobic [[id number]] Collected: 09/27/241653 Lab Status: Final result Specimen: Tissue from Thigh, Left Updated: 10/01/24 1554 Narrative: The following orders were created for panel order Tissue Culture, Aerobic & Anaerobic. Procedure Abnormality Status --------- ------ Tissue Culture, Aerobic ...[[id number]] Anaerobic Culture[[id number]] Final result Please view results for these tests on the individual orders. Anaerobic Culture [[id number]] Collected: 09/27/241653 Lab Status: Final result Specimen: Tissue from Thigh, Left Updated: 10/01/24 1554 Anaerobic Culture No anaerobic organisms isolated Tissue Culture, Aerobic Only [[id number]] (Abnormal) (Susceptibility) Collected: 09/27/24 1654 Lab Status: [...] is considered susceptible to doxycycline. Blood culture [[id number]] (Abnormal) (Susceptibility) Collected: 09/26/24 1422 Lab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 W/VIDEO-ASST VEIN HARVEST, CABG 01/04/2012 ENDOSCOPIC HARVEST VEIN(S) FOR CABG performed by INNA TOVAR at [facility] MAIN OR PRO EXCISION, INFEC GRAFT, EXTREMITY Left 09/26/2024 EXCISION OF INFECTED GRAFT FROM LOWER EXTREMITY (WRVU 9.53) performed by Hayley Torres MD at [facility] OR PRO EXCISION, INFEC GRAFT, EXTREMITY Left 09/28/2024 EXCISION OF INFECTED GRAFT FROM LOWER EXTREMITY (WRVU 9.53) performed by Hayley Torres MD at [facility] MAIN OR PRO EXPLORATION NOT FOLLOWED BY SURG LOWER EXTREMITY ARTERY Left 09/29/2024 @EXPLORATION W\O SURGICAL REPAIR, FEMORAL ARTERY - JENNIFER (WRVU 7.5) performed by Anabel Finney MD at [facility] MAIN OR PRO FORM SKIN PEDICLE FLAP SCALP, ARM, LEG 09/28/2024 FLAP, PEDICLE,W OR W/O TRANSFER, LEGS (WRVU 10.12) performed by Hayley Torres MD at [facility] MAIN OR PRO I&D DEEP ABSCESS BURSA/HEMATOMA THIGH/KNEE REGION Left 09/26/2024 INCISION & DRAINAGE ABSCESS OR HEMATOMA, THIGH, KNEE SUPERFICIAL (WRVU 6.78) performed by Hayley Torres MD at [facility] MAIN OR PRO REVISION FEMORAL ANAST BPG GROIN OPEN W/NONAUTOG PATCH GRAFT Left 09/28/2024 REV. FEM. ANASTOMOSIS OF SYN. BYPASS GRAFT USING NONAUTOGENOUS PATCH ANGIOPLASTY-JENNIFER (WRVU 23.15) performed by Hayley Torres MD at [facility] MAIN OR PRO UNLISTED PROCEDURE VASCULAR SURGERY Left 09/28/2024 HARVEST SAPHENOUS VEIN (WRVU 13.24) performed by Hayley Torres MD at [facility] MAIN OR VS ARTERIOGRAM LOWER EXTREMITY VASCULAR SURGERY 07/20/2024 VS Arteriogram Lower Extremity Vascular Surgery 07/20/2024 Anabel Finney MD [facility] INTERVENTIONL RAD Active Non-Hospital Problems Diagnosis [...] outlined in thisevaluation. Time IN / OUT: 9320-2159 Total Time: 28 minutes; Low EV and TEF JESSICA RENAE, PT Pager: [phone] Physical Therapy Inpatient Rehabilitation Department * Rose Wright, RESHMA - 10/03/2024 7:53 AM EST Images from [...] week ago. [place] [facility] and went to the OR [...] not holding suction - Last Bowel Movement: (ENVIRONMENTAL CONSERVATION PROFESSOR) Objective: Temp: [36.4 ??C (97.5 ??F)-37.3 ??C [...] Procedure Component Value - Date/Time Blood culture [[id number]] Collected: 09/29/242123 Lab Status: Preliminary result Specimen: Blood, Venous Updated: 10/02/24 2300 Blood Culture No growth at 72 hours Blood culture [[id number]] Collected: 09/29/242123 Lab Status: Preliminary result Specimen: Blood, Venous Updated: 10/02/24 2300 Blood Culture No growth at 72 hours Blood culture [[id number]] Collected: 09/28/24 174 Lab Status: Preliminary result Specimen: Blood, Venous Updated: 10/02/24 1901 Blood Culture No growth at 96 hours Blood culture [[id number]] (Abnormal) Collected: 09/27/242132 Lab Status: Final result Specimen: Blood, Venous Updated: 10/02/24 0804 Blood Culture Methicillin Resistant Staphylococcus aureus Comment: Susceptibilities previously reported. Gram Stain Aerobic Bottle: Gram positive cocci in clusters Tissue Culture, Aerobic & Anaerobic [[id number]] Collected: 09/27/241653 Lab Status: Final result Specimen: Tissue from Thigh, Left Updated: 10/01/24 155 Narrative: The following orders were created for panel order Tissue Culture, Aerobic & Anaerobic. Procedure Abnormality Status --------- ------ Tissue Culture, Aerobic ...[[id number]] Anaerobic Culture[[id number]] Final result Please view results for these tests on the individual orders. Anaerobic Culture [[id number]] Collected: 09/27/241653 Lab Status: Final result Specimen: Tissue from Thigh, Left Updated: 10/01/24 155 Anaerobic Culture No anaerobic organisms isolated Tissue Culture, Aerobic Only [[id number]] (Abnormal) (Susceptibility) Collected: 09/27/241653 Lab Status: Final [...] is considered susceptible to doxycycline. Blood culture [[id number]] (Abnormal) (Susceptibility) Collected: 09/26/24 1422 Lab Status: Final result Specimen: Blood, Venous Updated: 10/01/24 0658 Blood Culture Methicillin Resistant Staphylococcus aureus Comment: detected by PCR Isolate saved. If future testing is required, contact the Microbiology Chip Person. Gram Stain Aerobic Bottle: Gram positive cocci in clusters Susceptibility Methicillin Resistant Staphylococcus aureus VITEK 2 METHOD Clindamycin Resistant Gentamicin Susceptible [1] Linezolid Susceptible Oxacillin Resistant Trimethoprim/Sulfa Susceptible Vancomycin Susceptible [1] Gentamicin is not appropriate for monotherapy for gram-positive infections. Blood culture [[id number]] (Abnormal) Collected: 09/26/24 1845 Lab Status: Final result Specimen: Blood, Venous Updated: 10/01/24 0658 Blood Culture Methicillin Resistant Staphylococcus aureus Comment: isolated. Susceptibilities previously reported. Gram Stain Aerobic Bottle: Gram positive cocci in clusters Abscess/Wound Aspirate Culture, Aerobic & Anaerobic [[id number]] (Abnormal) Collected: 09/26/24 1650 Lab Status: Final result Specimen: Abscess from Groin, Left Updated: 09/30/24 1551 Narrative: The following orders were created for panel order Abscess/Wound Aspirate Culture, Aerobic & Anaerobic. Procedure Abnormality Status --------- ------ Abscess/Wound Aspirate C...[[id number]] Abnormal Final result Anaerobic Culture[[id number]] Final result Please view results for these tests on the individual orders. Anaerobic Culture [[id number]] Collected: 09/26/24 1650 Lab Status: Final result Specimen: Abscess from Groin, Left Updated: 09/30/24 1551 Anaerobic Culture No anaerobic organisms isolated Abscess/Wound Aspirate Culture, Aerobic & Anaerobic [[id number]] (Abnormal) Collected: 09/26/24 1702 Lab Status: Final result Specimen: Abscess from Knee, Left Updated: 09/30/24 1551 Narrative: The following orders were created for panel order Abscess/Wound Aspirate Culture, Aerobic & Anaerobic. Procedure Abnormality Status --------- ------ Abscess/Wound Aspirate C...[[id number]] Abnormal Final result Anaerobic Culture[[id number]] Final result Please view results for these tests on the individual orders. Anaerobic Culture [[id number]] Collected: 09/26/24 1702 Lab Status: Final result Specimen: Abscess from Knee, Left Updated: 09/30/24 1551 Anaerobic Culture No anaerobic organisms isolated Sonicated Tissue/Implant Culture [[id number]] (Abnormal) Collected: 09/26/24 1716 Lab Status: Final result Specimen: Vascular Graft from Leg, Left Updated: 09/30/24 1349 Sonicated Tissue/Implant Culture Methicillin Resistant Staphylococcus aureus Comment: isolated from broth culture. Susceptibilities previously reported. Abscess/Wound Aspirate Culture, Aerobic Only [[id number]] (Abnormal) (Susceptibility) Collected: 09/26/24 170 Lab Status: [...] to doxycycline. Abscess/Wound Aspirate Culture, Aerobic Only [[id number]] (Abnormal) (Susceptibility) Collected: 09/26/24 1650 Lab Status: [...] is considered susceptible to doxycycline. AFB culture [[id number]] Collected: 09/27/24 165 Lab Status: Preliminary result Specimen: Tissue from Thigh, Left Updated: 09/29/24 1201 Acid Fast Bacilli Culture No acid fast bacilli isolated to date. Acid Fast Stain No acid fast bacilli seen AFB culture [[id number]] Collected: 09/26/24 170 Lab Status: Preliminary result Specimen: Abscess from Knee, Left Updated: 09/29/24 1201 Acid Fast Bacilli Culture No acid fast bacilli isolated to date. Acid Fast Stain No acid fast bacilli seen Fungus culture [[id number]] Collected: 09/27/24 165 Lab Status: Preliminary result Specimen: Tissue from Thigh, Left Updated: 09/28/24 0748 Fungus Culture No fungus isolated to date MRSA PCR Screen [[id number]] (Abnormal) Collected: 09/27/24 0751 Lab Status: Final result Specimen: Swab from Nares Updated: 09/27/24 1156 MRSA PCR Detected Narrative: This test was performed using the Xpert MRSA NxG test kit and is run on the Definition 6 Gene[employer]ola Pirindola Dx System. This test is cleared by the U.S. Food and Drug Administration for clinical use and its performance characteristics have been verified by the [facility] at [facility]. Fungus culture [[id number]] Collected: 09/26/24 165 Lab Status: Preliminary result Specimen: Abscess from Groin, Left Updated: 09/27/24 0727 Fungus Culture No fungus isolated to date Fungus culture [[id number]] Collected: 09/26/241701 Lab Status: Preliminary result Specimen: [...] L GSV harvest, vein patch angioplasty, L METAL WORK DUCT INSTALLER and BK pop w/ sartorius flap L fem, I/D, 09/29 L sartorius flap revision, vac change. 10/03/24 NPO at [facility] for OR wound exploration. [...] 81mg daily Rose Wright APRN 10/03/2024 Pager: [phone] * Padma Ramirez MD - 10/02/2024 7:42 PM EST Surgery Post Op Check Geovanna Viet Dixon Jr. is a 49 [...] concerns. Joanie Silverio PT, DPT, GCS Pager: [phone] 10/02/24 Inpatient Rehabilitation Department * Hermila White [...] week ago. [place] [facility] [place] and went to the OR [...] Q8H insulin lispro 1-6 Units Subcutaneous Q4H [facility] insulin lispro 0-11 Units Subcutaneous TID WC acetaminophen 975 mg Oral Q6H JOSE atorvastatin 80 mg Oral QPM aspirin EC 81 mg Oral Daily methylphenidate 20 mg Oral TID pantoprazole EC 40 mg Oral Daily senna-docusate 2 tablet Oral BID venlafaxine XR 225 mg Oral Daily heparin (porcine) 5,000 Units Subcutaneous Q8H [facility] lidocaine 1 patch Transdermal Q24H Operations this [...] 9.6 from 9.1 - Last Bowel Movement: (ENVIRONMENTAL CONSERVATION PROFESSOR) Objective: Temp: [36.2 ??C (97.1 ??F)-36.9 ??C [...] Procedure Component Value - Date/Time Blood culture [[id number]] (Abnormal) Collected: 09/27/242132 Lab Status: Final result Specimen: Blood, Venous Updated: 10/02/24 0804 Blood Culture Methicillin Resistant Staphylococcus aureus Comment: Susceptibilities previously reported. Gram Stain Aerobic Bottle: Gram positive cocci in clusters Blood culture [[id number]] Collected: 09/29/242123 Lab Status: Preliminary result Specimen: Blood, Venous Updated: 10/01/24 2301 Blood Culture No growth at 48 hours Blood culture [[id number]] Collected: 09/29/242123 Lab Status: Preliminary result Specimen: Blood, Venous Updated: 10/01/24 2301 Blood Culture No growth at 48 hours Blood culture [[id number]] Collected: 09/28/24 1749 Lab Status: Preliminary result Specimen: Blood, Venous Updated: 10/01/24 1901 Blood Culture No growth at 72 hours Tissue Culture, Aerobic & Anaerobic [[id number]] Collected: 09/27/241653 Lab Status: Final result Specimen: Tissue from Thigh, Left Updated: 10/01/24 1554 Narrative: The following orders were created for panel order Tissue Culture, Aerobic & Anaerobic. Procedure Abnormality Status --------- ------ Tissue Culture, Aerobic ...[[id number]] Anaerobic Culture[[id number]] Final result Please view results for these tests on the individual orders. Anaerobic Culture [[id number]] Collected: 09/27/241653 Lab Status: Final result Specimen: Tissue from Thigh, Left Updated: 10/01/24 1554 Anaerobic Culture No anaerobic organisms isolated Tissue Culture, Aerobic Only [[id number]] (Abnormal) (Susceptibility) Collected: 09/27/24 1654 Lab Status: [...] is considered susceptible to doxycycline. Blood culture [[id number]] (Abnormal) (Susceptibility) Collected: 09/26/24 1422 Lab Status: Final result Specimen: Blood, Venous Updated: 10/01/24 0658 Blood Culture Methicillin Resistant Staphylococcus aureus Comment: detected by PCR Isolate saved. If future testing is required, contact the Microbiology Chip Person. Gram Stain Aerobic Bottle: Gram positive cocci in clusters Susceptibility Methicillin Resistant Staphylococcus aureus VITEK 2 METHOD Clindamycin Resistant Gentamicin Susceptible [1] Linezolid Susceptible Oxacillin Resistant Trimethoprim/Sulfa Susceptible Vancomycin Susceptible [1] Gentamicin is not appropriate for monotherapy for gram-positive infections. Blood culture [[id number]] (Abnormal) Collected: 09/26/24 1845 Lab Status: Final result Specimen: Blood, Venous Updated: 10/01/24 0658 Blood Culture Methicillin Resistant Staphylococcus aureus Comment: isolated. Susceptibilities previously reported. Gram Stain Aerobic Bottle: Gram positive cocci in clusters Abscess/Wound Aspirate Culture, Aerobic & Anaerobic [[id number]] (Abnormal) Collected: 09/26/24 165 Lab Status: Final result Specimen: Abscess from Groin, Left Updated: 09/30/24 1551 Narrative: The following orders were created for panel order Abscess/Wound Aspirate Culture, Aerobic & Anaerobic. Procedure Abnormality Status --------- ------ Abscess/Wound Aspirate C...[[id number]] Abnormal Final result Anaerobic Culture[[id number]] Final result Please view results for these tests on the individual orders. Anaerobic Culture [[id number]] Collected: 09/26/24 1650 Lab Status: Final result Specimen: Abscess from Groin, Left Updated: 09/30/24 1551 Anaerobic Culture No anaerobic organisms isolated Abscess/Wound Aspirate Culture, Aerobic & Anaerobic [[id number]] (Abnormal) Collected: 09/26/24 1702 Lab Status: Final result Specimen: Abscess from Knee, Left Updated: 09/30/24 1551 Narrative: The following orders were created for panel order Abscess/Wound Aspirate Culture, Aerobic & Anaerobic. Procedure Abnormality Status --------- ------ Abscess/Wound Aspirate C...[[id number]] Abnormal Final result Anaerobic Culture[[id number]] Final result Please view results for these tests on the individual orders. Anaerobic Culture [[id number]] Collected: 09/26/24 170 Lab Status: Final result Specimen: Abscess from Knee, Left Updated: 09/30/24 1551 Anaerobic Culture No anaerobic organisms isolated Sonicated Tissue/Implant Culture [[id number]] (Abnormal) Collected: 09/26/24 1716 Lab Status: Final result Specimen: Vascular Graft from Leg, Left Updated: 09/30/24 1349 Sonicated Tissue/Implant Culture Methicillin Resistant Staphylococcus aureus Comment: isolated from broth culture. Susceptibilities previously reported. Abscess/Wound Aspirate Culture, Aerobic Only [[id number]] (Abnormal) (Susceptibility) Collected: 09/26/24 170 Lab Status: [...] to doxycycline. Abscess/Wound Aspirate Culture, Aerobic Only [[id number]] (Abnormal) (Susceptibility) Collected: 09/26/24 1650 Lab Status: [...] is considered susceptible to doxycycline. AFB culture [[id number]] Collected: 09/27/241653 Lab Status: Preliminary result Specimen: Tissue from Thigh, Left Updated: 09/29/24 1201 Acid Fast Bacilli Culture No acid fast bacilli isolated to date. Acid Fast Stain No acid fast bacilli seen AFB culture [[id number]] Collected: 09/26/241701 Lab Status: Preliminary result Specimen: Abscess from Knee, Left Updated: 09/29/24 1201 Acid Fast Bacilli Culture No acid fast bacilli isolated to date. Acid Fast Stain No acid fast bacilli seen Fungus culture [[id number]] Collected: 09/27/241653 Lab Status: Preliminary result Specimen: Tissue from Thigh, Left Updated: 09/28/24 0748 Fungus Culture No fungus isolated to date MRSA PCR Screen [[id number]] (Abnormal) Collected: 09/27/24 0751 Lab Status: Final result Specimen: Swab from Nares Updated: 09/27/24 1156 MRSA PCR Detected Narrative: This test was performed using the Xpert MRSA NxG test kit and is run on the Definition 6 GeneXpert Dx System. This test is cleared by the U.S. Food and Drug Administration for clinical use and its performance characteristics have been verified by the [facility] at [facility]. Fungus culture [[id number]] Collected: 09/26/241649 Lab Status: Preliminary result Specimen: Abscess from Groin, Left Updated: 09/27/24 0727 Fungus Culture No fungus isolated to date Fungus culture [[id number]] Collected: 09/26/241701 Lab Status: Preliminary result Specimen: [...] L GSV harvest, vein patch angioplasty, L METAL WORK DUCT INSTALLER and BK pop w/ sartorius flap L [...] 81mg daily Hermila White APRN 10/02/2024 Pager: [phone] * María Carranza APRN - 10/01/2024 8:41 [...] week ago. [place] [facility] [place] and went to the OR [...] WBC 10.1(9.5) - lytes WNL - BM ENVIRONMENTAL CONSERVATION PROFESSOR (09/26) - BC NGTD Objective: Temp: [36.6 [...] Procedure Component Value - Date/Time Blood culture [[id number]] (Abnormal) (Susceptibility) Collected: 09/26/24 1422 Lab Status: Final result Specimen: Blood, Venous Updated: 10/01/24 0658 Blood Culture Methicillin Resistant Staphylococcus aureus Comment: detected by PCR Isolate saved. If future testing is required, contact the Microbiology Chip Person. Gram Stain Aerobic Bottle: Gram positive cocci in clusters Susceptibility Methicillin Resistant Staphylococcus aureus VITEK 2 METHOD Clindamycin Resistant Gentamicin Susceptible [1] Linezolid Susceptible Oxacillin Resistant Trimethoprim/Sulfa Susceptible Vancomycin Susceptible [1] Gentamicin is not appropriate for monotherapy for gram-positive infections. Blood culture [[id number]] (Abnormal) Collected: 09/26/24 1845 Lab Status: Final result Specimen: Blood, Venous Updated: 10/01/24 0658 Blood Culture Methicillin Resistant Staphylococcus aureus Comment: isolated. Susceptibilities previously reported. Gram Stain Aerobic Bottle: Gram positive cocci in clusters Blood culture [[id number]] Collected: 09/29/242123 Lab Status: Preliminary result Specimen: Blood, Venous Updated: 09/30/24 2301 Blood Culture No Growth at 18-24 hrs. Blood culture [[id number]] Collected: 09/29/24 2124 Lab Status: Preliminary result Specimen: Blood, Venous Updated: 09/30/24 2301 Blood Culture No Growth at 18-24 hrs. Blood culture [[id number]] Collected: 09/28/24 1749 Lab Status: Preliminary result Specimen: Blood, Venous Updated: 09/30/24 1901 Blood Culture No growth at 48 hours Abscess/Wound Aspirate Culture, Aerobic & Anaerobic [[id number]] (Abnormal) Collected: 09/26/24 165 Lab Status: Final result Specimen: Abscess from Groin, Left Updated: 09/30/24 1551 Narrative: The following orders were created for panel order Abscess/Wound Aspirate Culture, Aerobic & Anaerobic. Procedure Abnormality Status --------- ------ Abscess/Wound Aspirate C...[[id number]] Abnormal Final result Anaerobic Culture[[id number]] Final result Please view results for these tests on the individual orders. Anaerobic Culture [[id number]] Collected: 09/26/24 165 Lab Status: Final result Specimen: Abscess from Groin, Left Updated: 09/30/24 1551 Anaerobic Culture No anaerobic organisms isolated Abscess/Wound Aspirate Culture, Aerobic & Anaerobic [[id number]] (Abnormal) Collected: 09/26/24 1702 Lab Status: Final result Specimen: Abscess from Knee, Left Updated: 09/30/24 1551 Narrative: The following orders were created for panel order Abscess/Wound Aspirate Culture, Aerobic & Anaerobic. Procedure Abnormality Status --------- ------ Abscess/Wound Aspirate C...[[id number]] Abnormal Final result Anaerobic Culture[[id number]] Final result Please view results for these tests on the individual orders. Anaerobic Culture [[id number]] Collected: 09/26/24 170 Lab Status: Final result Specimen: Abscess from Knee, Left Updated: 09/30/24 1551 Anaerobic Culture No anaerobic organisms isolated Sonicated Tissue/Implant Culture [[id number]] (Abnormal) Collected: 09/26/24 1716 Lab Status: Final result Specimen: Vascular Graft from Leg, Left Updated: 09/30/24 1349 Sonicated Tissue/Implant Culture Methicillin Resistant Staphylococcus aureus Comment: isolated from broth culture. Susceptibilities previously reported. Abscess/Wound Aspirate Culture, Aerobic Only [[id number]] (Abnormal) (Susceptibility) Collected: 09/26/24 1702 Lab Status: [...] to doxycycline. Abscess/Wound Aspirate Culture, Aerobic Only [[id number]] (Abnormal) (Susceptibility) Collected: 09/26/24 1650 Lab Status: [...] is considered susceptible to doxycycline. Blood culture [[id number]] (Abnormal) Collected: 09/27/24 2133 Lab Status: Preliminary result Specimen: Blood, Venous Updated: 09/30/24 0718 Blood Culture Methicillin Resistant Staphylococcus aureus Comment: Susceptibilities previously reported. Gram Stain Aerobic Bottle: Gram positive cocci in clusters AFB culture [[id number]] Collected: 09/27/24 1654 Lab Status: Preliminary result Specimen: Tissue from Thigh, Left Updated: 09/29/24 1201 Acid Fast Bacilli Culture No acid fast bacilli isolated to date. Acid Fast Stain No acid fast bacilli seen AFB culture [[id number]] Collected: 09/26/24 1702 Lab Status: Preliminary result Specimen: Abscess from Knee, Left Updated: 09/29/24 1201 Acid Fast Bacilli Culture No acid fast bacilli isolated to date. Acid Fast Stain No acid fast bacilli seen Tissue Culture, Aerobic Only [[id number]] (Abnormal) (Susceptibility) Collected: 09/27/241653 Lab Status: Preliminary [...] is considered susceptible to doxycycline. Anaerobic Culture [[id number]] Collected: 09/27/241653 Lab Status: Preliminary result Specimen: Tissue from Thigh, Left Updated: 09/28/24 1355 Anaerobic Culture No anaerobic organisms isolated to date Fungus culture [[id number]] Collected: 09/27/241653 Lab Status: Preliminary result Specimen: Tissue from Thigh, Left Updated: 09/28/24 0748 Fungus Culture No fungus isolated to date MRSA PCR Screen [[id number]] (Abnormal) Collected: 09/27/24 0751 Lab Status: Final result Specimen: Swab from Nares Updated: 09/27/24 1156 MRSA PCR Detected Narrative: This test was performed using the Xpert MRSA NxG test kit and is run on the Definition 6 GeneXKitani Dx System. This test is cleared by the U.S. Food and Drug Administration for clinical use and its performance characteristics have been verified by the [facility] at [facility]. Fungus culture [[id number]] Collected: 09/26/24 165 Lab Status: Preliminary result Specimen: Abscess from Groin, Left Updated: 09/27/24 0727 Fungus Culture No fungus isolated to date Fungus culture [[id number]] Collected: 09/26/24 1702 Lab Status: Preliminary result [...] L GSV harvest, vein patch angioplasty, L METAL WORK DUCT INSTALLER and BK pop w/ sartorius flap L fem, I/D, 09/29 L sartorius flap revision, vac change. 10/01/24: Tolerated gentle irrigation with saline at BSD today with clear to mildly serosang drainage - no purulence or malodor noted and patient tolerated well. Will plan for NPO at [place] for return [place] tomorrow. Hypertensive overnight, home [...] - ISS - diet today; NPO at [place] for OR Tuesday 10/02 Anticoagulation: SQH TID Antiplatelet: ASA 81 María Carranza, RESHMA 10/01/2024 Pager: [phone] * Karolyn Hudson MD - 09/30/2024 11:21 [...] week ago. He [place] [facility] [place] and went to the OR [...] 3 wbc, hgb, hct plt Recent Labs 09/29/24235109/28/24235009/27/24 235 WBC 9.54* 12.76* 17.15* HGB 8.7* 8.5* 10.4* HCT 25.8* 24.7* 30.5* PLATELET 411* 331 316 Microbiology Microbiology Results (last 7 days) Procedure Component Value - Date/Time Blood culture [[id number]] (Abnormal) Collected: 09/27/24 2133 Lab Status: Preliminary result Specimen: Blood, Venous Updated: 09/30/24 0718 Blood Culture Methicillin Resistant Staphylococcus aureus Comment: Susceptibilities previously reported. Gram Stain Aerobic Bottle: Gram positive cocci in clusters Blood culture [[id number]] Collected: 09/28/24 1749 Lab Status: Preliminary result Specimen: Blood, Venous Updated: 09/29/24 1901 Blood Culture No Growth at 18-24 hrs. AFB culture [[id number]] Collected: 09/27/24 1654 Lab Status: Preliminary result Specimen: Tissue from Thigh, Left Updated: 09/29/24 1201 Acid Fast Bacilli Culture No acid fast bacilli isolated to date. Acid Fast Stain No acid fast bacilli seen AFB culture [[id number]] Collected: 09/26/24 1702 Lab Status: Preliminary result Specimen: Abscess from Knee, Left Updated: 09/29/24 1201 Acid Fast Bacilli Culture No acid fast bacilli isolated to date. Acid Fast Stain No acid fast bacilli seen Sonicated Tissue/Implant Culture [[id number]] (Abnormal) Collected: 09/26/24 1716 Lab Status: Preliminary result Specimen: Vascular Graft from Leg, Left Updated: 09/29/24 1132 Sonicated Tissue/Implant Culture Methicillin Resistant Staphylococcus aureus Comment: isolated from broth culture. Susceptibilities previously reported. Tissue Culture, Aerobic Only [[id number]] (Abnormal) (Susceptibility) Collected: 09/27/24 1654 Lab Status: [...] is considered susceptible to doxycycline. Blood culture [[id number]] (Abnormal) Collected: 09/26/24 1845 Lab Status: Preliminary result Specimen: Blood, Venous Updated: 09/29/24 0719 Blood Culture Methicillin Resistant Staphylococcus aureus Comment: isolated. Susceptibilities previously reported. Gram Stain Aerobic Bottle: Gram positive cocci in clusters Blood culture [[id number]] (Abnormal) (Susceptibility) Collected: 09/26/24 1422 Lab Status: Preliminary result Specimen: Blood, Venous Updated: 09/29/24 0717 Blood Culture Methicillin Resistant Staphylococcus aureus Comment: detected by PCR Isolate saved. If future testing is required, contact the Microbiology Chip Person. Gram Stain Aerobic Bottle: Gram positive cocci in clusters Susceptibility Methicillin Resistant Staphylococcus aureus VITEK 2 METHOD Clindamycin Resistant Gentamicin Susceptible [1] Linezolid Susceptible Oxacillin Resistant Trimethoprim/Sulfa Susceptible Vancomycin Susceptible [1] Gentamicin is not appropriate for monotherapy for gram-positive infections. Anaerobic Culture [[id number]] Collected: 09/27/24 1654 Lab Status: Preliminary result Specimen: Tissue from Thigh, Left Updated: 09/28/24 1355 Anaerobic Culture No anaerobic organisms isolated to date Abscess/Wound Aspirate Culture, Aerobic Only [[id number]] (Abnormal) (Susceptibility) Collected: 09/26/24 1702 Lab Status: [...] to doxycycline. Abscess/Wound Aspirate Culture, Aerobic Only [[id number]] (Abnormal) (Susceptibility) Collected: 09/26/241649 Lab Status: Preliminary [...] is considered susceptible to doxycycline. Fungus culture [[id number]] Collected: 09/27/241653 Lab Status: Preliminary result Specimen: Tissue from Thigh, Left Updated: 09/28/24 0748 Fungus Culture No fungus isolated to date MRSA PCR Screen [[id number]] (Abnormal) Collected: 09/27/24 0751 Lab Status: Final result Specimen: Swab from Nares Updated: 09/27/24 1156 MRSA PCR Detected Narrative: This test was performed using the Xpert MRSA NxG test kit and is run on the Definition 6 GeneXpert Dx System. This test is cleared by the U.S. Food and Drug Administration for clinical use and its performance characteristics have been verified by the [facility] at [facility]. Anaerobic Culture [[id number]] Collected: 09/26/241649 Lab Status: Preliminary result Specimen: Abscess from Groin, Left Updated: 09/27/24 1142 Anaerobic Culture No anaerobic organisms isolated to date Anaerobic Culture [[id number]] Collected: 09/26/24 1702 Lab Status: Preliminary result Specimen: Abscess from Knee, Left Updated: 09/27/24 1142 Anaerobic Culture No anaerobic organisms isolated to date Fungus culture [[id number]] Collected: 09/26/241649 Lab Status: Preliminary result Specimen: Abscess from Groin, Left Updated: 09/27/24 0727 Fungus Culture No fungus isolated to date Fungus culture [[id number]] Collected: 09/26/24 1702 Lab Status: Preliminary result Specimen: Abscess from Knee, Left Updated: 09/27/24 07 Fungus Culture No fungus isolated to date New Studies Results for orders placed or performed during the hospital encounter of 09/26/24 Request For [address]nd Read CT Lower Extremity (Exam End: 09/26/2024 1:50 PM) Result Value WORKSTATION ID [id number] Impression 1. There is a left femoral [...] who have questions please contact the health lawn care specialist that requested your imaging first. Electronically signed by: Lisette Bruno MD, [facility] ([phone]), at 09/26/2024 3:[address] Lower Extremity w Contrast Left (Exam End: 09/27/2024 9:16 AM) Result Value WORKSTATION ID [id number] Impression IMPRESSION: 1. Interval explant of LEFT [...] who have questions please contact the health lawn care specialist that requested your imaging first. [...] at proximal and distal anastomoses and a Bladen drain placed from left groin to left thigh. The retained grafts have since been removed, with Bladen drains in the L groin and thigh [...] Labs 09/28/24 1516 PHART 7.42 PO2ART 103 YCQ1VXR 39 LACTATEART 1.1 BEART 0.2 Is this [...] PRN meds given with good effect- See JAN. Q1 neurovascular completed- LLE DP/ PT [...] Body mass index is 32.45 kg/m??. 09/28 07 - 09/29 0700 In: 2676 [P.O.:350; I.V.:2090] Out: 3410 [Urine:3125; [...] 1643 PHART 7.42 7.38 PO2ART 103 96 HTG5EFZ 39 41 LACTATEART 1.1 1.7 BEART 0.2 [...] Thank you, Renea Nunez, MS, RD, LD, [facility] Clinical Nutrition * Mariya Shi RN [...] Monitoring: Q4 Fawn Cunningham APRN [facility] Endocrinology Diabetes Management Pager [phone] Weekends please page [phone] 35 minutes were spent over the course [...] Labs 09/26/24 1643 PHART 7.38 PO2ART 96 OWT2OXD 41 LACTATEART 1.7 BEART -1.4 Is this [...] week ago. He presented to [facility] [place] and went to the OR [...] Procedure Component Value - Date/Time Fungus culture [[id number]] Collected: 09/27/24 1654 Lab Status: Preliminary result Specimen: Tissue from Thigh, Left Updated: 09/28/24 0748 Fungus Culture No fungus isolated to date Blood culture [[id number]] (Abnormal) Collected: 09/26/24 1845 Lab Status: Preliminary result Specimen: Blood, Venous Updated: 09/28/24 0711 Blood Culture Methicillin Resistant Staphylococcus aureus Comment: isolated. Susceptibility testing in progress. Gram Stain Aerobic Bottle: Gram positive cocci in clusters AFB culture [[id number]] Collected: 09/26/24 170 Lab Status: Preliminary result Specimen: Abscess from Knee, Left Updated: 09/27/24 2335 Acid Fast Stain No acid fast bacilli seen Tissue Culture, Aerobic Only [[id number]] Collected: 09/27/24 165 Lab Status: Preliminary result Specimen: Tissue from Thigh, Left Updated: 09/27/24 1810 Gram Stain Few Neutrophils seen No microorganisms seen Abscess/Wound Aspirate Culture, Aerobic Only [[id number]] (Abnormal) Collected: 09/26/24 170 Lab Status: Preliminary result Specimen: Abscess from Knee, Left Updated: 09/27/24 1520 Abscess/Wound Aspirate Culture Many Staphylococcus aureus Gram Stain Many neutrophils Many Gram positive cocci Abscess/Wound Aspirate Culture, Aerobic Only [[id number]] (Abnormal) Collected: 09/26/241649 Lab Status: Preliminary result Specimen: Abscess from Groin, Left Updated: 09/27/24 1519 Abscess/Wound Aspirate Culture Many Staphylococcus aureus Gram Stain Many neutrophils Many Gram positive cocci Blood culture [[id number]] (Abnormal) Collected: 09/26/24 1422 Lab Status: Preliminary result Specimen: Blood, Venous Updated: 09/27/24 1320 Blood Culture Methicillin Resistant Staphylococcus aureus Comment: detected by PCR Gram Stain Aerobic Bottle: Gram positive cocci in clusters MRSA PCR Screen [[id number]] (Abnormal) Collected: 09/27/24 0751 Lab Status: Final result Specimen: Swab from Nares Updated: 09/27/24 1156 MRSA PCR Detected Narrative: This test was performed using the Xpert MRSA NxG test kit and is run on the Definition 6 GeneXKitani Dx System. This test is cleared by the U.S. Food and Drug Administration for clinical use and its performance characteristics have been verified by the [facility] at [facility]. Anaerobic Culture [[id number]] Collected: 09/26/24 165 Lab Status: Preliminary result Specimen: Abscess from Groin, Left Updated: 09/27/24 1142 Anaerobic Culture No anaerobic organisms isolated to date Anaerobic Culture [[id number]] Collected: 09/26/24 170 Lab Status: Preliminary result Specimen: Abscess from Knee, Left Updated: 09/27/24 1142 Anaerobic Culture No anaerobic organisms isolated to date Fungus culture [[id number]] Collected: 09/26/24 1650 Lab Status: Preliminary result Specimen: Abscess from Groin, Left Updated: 09/27/24726 Fungus Culture No fungus isolated to date Fungus culture [[id number]] Collected: 09/26/24 1702 Lab Status: Preliminary result Specimen: Abscess from Knee, Left Updated: 09/27/24726 Fungus Culture No fungus isolated to date New Studies Results for orders placed or performed during the hospital encounter of 09/26/24 Request For 2nd Read CT Lower Extremity (Exam End: 09/26/2024 1:50 PM) Result Value WORKSTATION ID [id number] Impression 1. There is a left femoral [...] who have questions please contact the health lawn care specialist that requested your imaging first. Electronically signed by: Lisette Bruno MD, [facility] ([phone]), at 09/26/2024 3:[address] Lower Extremity w Contrast Left (Exam End: 09/27/2024 9:16 AM) Result Value WORKSTATION ID [id number] Impression IMPRESSION: 1. Interval explant of LEFT [...] who have questions please contact the health lawn care specialist that requested your imaging first. Electronically signed by: Ignacia Chi MD, [facility] ([phone]), at 09/27/2024 10:48 AM Assessment & Plan [...] Superior part of dressing taken down. [address]. Abd pads with serosanguinous [...] Kita Hodge - 09/27/2024 3:58 PM EST Seo Intern Encounter Note Patient Name: Geovanna Dixon Jr. : [id number] MR#: [id number] Admit Date: 09/26/2024 2:08 PM Hospital Day 1 day Narrative: Lockstitch Cup Setter initiated visit with patient during rounds on the unit. Patient indicated that he was not jain. He reported that he was in less [...] Labs 09/26/24 1643 PHART 7.38 PO2ART 96 WAG1ZBP 41 LACTATEART 1.7 BEART -1.4 Is this [...] week ago. He presented to [facility] [place] and went to the OR [...] at proximal and distal anastomoses, and a Bladen drain placed from left groin to left [...] graft associated infection. The patient presented to [facility] ED on 09/26 for evaluation of [...] remained hemodynamically stable during his time at [facility] and was transported by ground to [facility] for vascular surgery consultation. Patient was admitted [...] 3.51) performed by Thony Garcia MD at [facility] MAIN OR PRO BYPASS GRAFT OTHR, FEM-TIBIAL Left 08/01/2024 @BYPASS GRAFT, FEM-ANT TIBIAL, -POST TIBIAL, -PERONEAL, -DP W\ SYNTHETIC CONDUIT (WRVU 23.66) performed by Lisette Maldonado MD at [facility] MAIN OR PRO CABG, ARTERY-VEIN, SINGLE 01/04/2012 @CABG, VENOUS & ARTERIAL GRAFT;SINGLE VEIN GRAFT performed by INNA TOVAR at [facility] MAIN OR PRO ENDOSCOPY W/VIDEO-ASST VEIN HARVEST, CABG 01/04/2012 ENDOSCOPIC HARVEST VEIN(S) FOR CABG performed by INNA TOVAR at [facility] MAIN OR VS ARTERIOGRAM LOWER EXTREMITY VASCULAR SURGERY 07/20/2024 VS Arteriogram Lower Extremity Vascular Surgery 07/20/2024 Anabel Finney MD [facility] INTERVENTIONL RAD Prior To Admission Medications: [...] 3 times daily. Use as instructed Indications: [id number] each 1 Past Week FreeStyle Lancets 28 [...] mellitus, whatver the most affordable version is for[employer] insurance 15 mL 1 Past Week insulin [...] 393 mg/dL Type and screen ([facility]/BABITA) Result Value Ref Range ABORH Type A POSITIVE PATIENT HISTORY Found Expires at 2359 on: 09/29/2024 ANTIBODY SCREEN AUTOMATED Negative T&S only valid at [facility] CBC (with Diff) Result Value Ref [...] 09/26/2024 1:50 PM) Result Value WORKSTATION ID [id number] Impression 1. There is a left femoral [...] who have questions please contact the health lawn care specialist that requested your imaging first. Electronically signed by: Lisette Bruno MD, [facility] ([phone]), at 09/26/2024 3:01 PM Assessment/Plan: Geovanna Dixon [...] to the planned procedure. Hand Hygiene: The applications engineer manufacturing did perform hand hygiene prior to line insertion. Catheter type: PICC Lot number: [id number] Procedure Technique: Skin was prepped with chlorhexidine. [...] to the planned procedure. Hand Hygiene: The applications engineer manufacturing did perform hand hygiene prior to line insertion. Catheter type: PICC Lot number: [id number] Procedure Technique: Skin was prepped with chlorhexidine. [...] Outcome: Outcome (s) achieved 10/10/2024 133 by Teerll Araiza RN Outcome: Ongoing (Interventions Implemented as [...] Outcome: Outcome (s) achieved 10/10/2024 133 by Araiza, Terell, RN Outcome: Ongoing (Interventions Implemented as Appropriate) [...] Home Vac: I have called [facility] and they they have now delivered the home ActiVac serial # [id number]. Pt reviewed the [facility] ActiVac Proof of Delivery/Assignment of Benefits (POD/AOB)form and signed it; she has copy of this and the [facility] Patient Copy letter along with the supplies, I will fax copy of the POD/AOB to [facility]. Needs for Transition of Care: Plan for discharge is: Home w/ Services Outpatient Agency/Support Group Needs: Homecare agency Outpatient IV Medications - IV Access: Access Ordered Location: Home, Referred to [facility] Coordination, Referred to [facility] Services: Occupational Therapy, Physical Therapy, Registered Nurse Agency Referrals & Follow-up Care: Contact information [place] [facility] [place] [address] [facility] [address] Transportation: family or friend will provide Functional status prior to admission: Independent Home Environment: Others in the home: sibling(s), other (see comments) (lives with his sister delmy and brother in law). Current Living Arrangements: home/apartment/condo. Accessibility Concerns: . Current Functional Ability: Assistive Person and Equipment DME used at home: none Other DME Needs: Wound Vac Provider: [facility] Patient is insured through: Primary Insurance: [employer]IC[employer] Payor: [employer]IC[employer] / Plan: [employer]IC[employer] PPO / Product Type: *No [...] Pain Flowsheets Taken 10/09/20242022 Pain Management Interventions: kktvrc-egu-gngrc dosing utilized care clustered diversional activity provided [...] from the original note were not included. [facility] [place] [address] [facility] Vascular Access Service Peripherally Inserted Central Catheter (PICC) Teaching Sheet Peripherally inserted central catheters (ghrp-an-necn) (PICC) are used when you need IV [...] midline catheter? PICC lines are used for long-term treatments. PICC lines may be used for [...] can be set up via the nurse Crop Consultant to help you. What are possible [...] Efficacy, Safety, Use, and Administration of Cathflo, [employer] 2005 * Care Management - Cristina [...] Access: Access Ordered Location: Home, Referred to [facility] Coordination Home Health Services: Occupational Therapy, Physical Therapy, Registered Nurse- will remove PT, OT Agency Referrals: [facility] and [facility] for IV abx. [facility] can come [...] 9:00 AM EST OFFICE OF CARE MANAGEMENT Crop Consultant Follow-up Note Cristina Turner RN reviewed [...] medically ready. Current Referral in place: VNA: [facility] Wound vac ordered in [employer] System for home wound vac and order emailed to: María for signature. Crop Consultant to follow with team and family [...] where referrals are placed. Request referral to [place], [place] for IV abx or . Expected date of discharge: 10/11. Patient will require teaching. Referral routed to the Clinical Cytopathologist for matching with agency/vendor and to provide [...] care clustered diversional activity provided position adjusted qpfjtt-gaf-sitye dosing utilized pain management plan reviewed with [...] have. Alternately, during off-hours you may call [phone] to contact a pharmacist. * Plan of Care - Jordyn Navas RN - 10/07/2024 7:21 PM EST OUTCOME EVALUATION NOTE: OUTCOME SUMMARY: [facility], Meds/Assessments as charted, [...] PM EST PICC line placed today for long-term ABX. Neurovascular checks unchanged. Good oral intake [...] from the [place] [address] [facility] Vascular Access Service Peripherally Inserted Central Catheter (PICC) Teaching Sheet Peripherally inserted central catheters (hxpb-ro-gjov) (PICC) are used when you need IV [...] midline catheter? PICC lines are used for emt intermediate treatments. PICC lines may be used for [...] can be set up via the nurse Crop Consultant to help you. What are possible [...] Vascular Access Device Selection, Insertion, and Management, [employer] 08/12. A Review of the Efficacy, Safety, Use, and Administration of Cathflo, [employer] 2005 * Care Management - Vibha [...] No Patient is insured through: Primary Insurance: [employer]ICARE Payor: [employer]IC[employer] / Plan: [employer]IC[employer] PPO / Product Type: *No [...] of Discharge: 10/10/2024 Vibha Wahl RN-BSN-CM Pager: [phone] * Consult Note - Stormy Muller [facility] - 10/06/2024 9:19 AM EST [facility] Pharmacokinetics Note Drug: Vancomycin Pharmacokinetic target: AUC24 (range) 400-600 mg/L.hr Current regimen: 1250 mg IV every 8 hours Geovanna Dixon is a(n) 49 years old male receiving Vancomycin 1250 mg IV every 8 hours for MRSA bacteremia/graft infection Recent measured serum creatinine values: 10/06/2024 00:03 0.85 mg/dL 10/04/2024 23:50 0.55 mg/dL 10/04/2024 00:08 0.56 mg/dL Assessment: Analysis of the most recent level(s) using [employer] gives the following patient-specific pharmacokinetic parameters: CL: [...] in a steady-state trough of 14.6 mg/L [id number] of 508 mg/L.hr. Recommendations: - SCr has [...] - 10/04/2024 5:01 PM EST [facility] Operative Note Patient Name: Geovanna Dixon Jr. : [id number] MR#: [id number] Case Date: 10/04/2024 Surgeon: Surgeons and Role: * Marko Dickson MD - Primary * Cristino Meeks MD - Resident - Assisting Preoperative diagnosis: Status post explant of infected left METAL WORK DUCT INSTALLER-BK pop bypass graft Postoperative diagnosis: Status post explant of infected left METAL WORK DUCT INSTALLER-BK pop bypass graft Procedure(s) (LRB): DEBRIDEMENT SKIN [...] then vein patch angioplasty of the left METAL WORK DUCT INSTALLER and BK popliteal artery on 09/28 then [...] Note Patient Name: Geovanna Dixon Jr. : [id number] MR#: [id number] Case Date: 10/04/2024 Surgeon: Surgeons and Role: * Marko Dickson MD - Primary * Cristino Meeks MD - Resident - Assisting Preoperative diagnosis: Status post explant of infected left METAL WORK DUCT INSTALLER-BK pop bypass graft Postoperative diagnosis: Status post explant of infected left METAL WORK DUCT INSTALLER-BK pop bypass graft Procedure(s) (LRB): DEBRIDEMENT SKIN [...] No Patient is insured through: Primary Insurance: [employer] MEDICARE Payor: [employer] MEDICARE / Plan: [employer] MEDIC[employer] PPO / Product Type: *No [...] BIT to reengage please page BIT @ [phone] * Consult Note - Vangie Chandra [facility] - 10/04/2024 10:42 AM EST [facility] Pharmacokinetics Note Drug: Vancomycin Pharmacokinetic target: AUC24 (range) 400-600 mg/L.hr Current regimen: 1500 mg IV every 8 hours Geovanna Dixon is a(n) 49 years old male receiving Vancomycin 1500 mg IV every 8 hours for graft infection Recent measured serum creatinine values: 10/04/2024 00:08 0.56 mg/dL 10/03/2024 00:27 0.51 mg/dL 10/02/2024 00:41 0.49 mg/dL Assessment: Analysis of the most recent level(s) using [employer] gives the following patient-specific pharmacokinetic parameters: CL: [...] care. * Initial Assessments - Bishnu Jorge N, OT - 10/03/2024 10:55 AM EST Occupational Therapy Evaluation Patient profile: Geovanna Dixon Jr. is a 49 y.o. male with a history of HTN, HLD, NSTEMI, CAD s/p CABG (12/2011), DM, obesity, PAD s/p L iliofem endart and L fem-BK pop bypass and L 2nd toe amputationwho was transferred from [facility] given concern for infected left fem-BK popliteal PTFE bypass. He is now s/p an explant of an infected left femoral-below knee popliteal artery bypass graft (09/26), I/D groin abscess (09/27), L GSV harvest, vein patch angioplasty, L METAL WORK DUCT INSTALLER and BK pop w/ sartorius flap L fem, I/D, 09/29 L sartorius flap revision, vac change. 10/03/24 NPO at [facility] for OR wound exploration. [...] 3.51) performed by Thony Garcia MD at [facility] MAIN OR PRO BYPASS GRAFT OTHR, FEM-TIBIAL Left 08/01/2024 @BYPASS GRAFT, FEM-ANT TIBIAL, -POST TIBIAL, -PERONEAL, -DP W\ SYNTHETIC CONDUIT (WRVU 23.66) performed by Lisette Maldonado MD at [facility] MAIN OR PRO CABG, ARTERY-VEIN, SINGLE 01/04/2012 @CABG, VENOUS & ARTERIAL GRAFT;SINGLE VEIN GRAFT performed by INNA TOVAR at [facility] MAIN OR PRO DEBRIDEMENT MUSCLE AND FASCIA 20 SQ CM/< Left 09/29/2024 DEBRIDEMENT SKIN, SUBCU, MUSCLE, LOWER EXTREMITY (WRVU 2.7) performed by Anabel Finney MD at [facility] MAIN OR PRO DEBRIDEMENT MUSCLE AND FASCIA 20 SQ CM/< Left 10/02/2024 DEBRIDEMENT SKIN, SUBCU, MUSCLE, LOWER EXTREMITY (WRVU 2.7) performed by Hermila Mccormick MDat [facility] MAIN OR PRO DEBRIDEMENT SUBCUTANEOUS TISSUE 20 SQCM/< Left 09/27/2024 DEBRIDEMENT SKIN AND SUBCU, LOWER EXTREMITY (WRVU 1.01) performed by Hayley Torres MD at [facility] MAIN OR PRO DRAIN LOWER LEG DEEP ABSC/HEMATOMA Left 09/26/2024 INCISION & DRAINAGE, LEG OR ANKLE, DEEP ABSCESS OR HEMATOMA (WRVU 5.23) performed by Hayley Torres MD at [facility] OR PRO ENDOSCOPY W/VIDEO-ASST VEIN HARVEST, CABG 01/04/2012 ENDOSCOPIC HARVEST VEIN(S) FOR CABG performed by INNA TOVAR at [facility] MAIN OR PRO EXCISION, INFEC GRAFT, EXTREMITY Left 09/26/2024 EXCISION OF INFECTED GRAFT FROM LOWER EXTREMITY (WRVU 9.53) performed by Hayley Torres MD at [facility] MAIN OR PRO EXCISION, INFEC GRAFT, EXTREMITY Left 09/28/2024 EXCISION OF INFECTED GRAFT FROM LOWER EXTREMITY (WRVU 9.53) performed by Hayley Torres MD at [facility] MAIN OR PRO EXPLORATION NOT FOLLOWED BY SURG LOWER EXTREMITY ARTERY Left 09/29/2024 @EXPLORATION W\O SURGICAL REPAIR, FEMORAL ARTERY - JENNIFER (WRVU 7.5) performed by Anabel Finney MD at [facility] MAIN OR PRO FORM SKIN PEDICLE FLAP SCALP, ARM, LEG 09/28/2024 FLAP, PEDICLE,W OR W/O TRANSFER, LEGS (WRVU 10.12) performed by Hayley Torres MD at [facility] MAIN OR PRO I&D DEEP ABSCESS BURSA/HEMATOMA THIGH/KNEE REGION Left 09/26/2024 INCISION & DRAINAGE ABSCESS OR HEMATOMA, THIGH, KNEE SUPERFICIAL (WRVU 6.78) performed by Hayley Torres MD at [facility] MAIN OR PRO REVISION FEMORAL ANAST BPG GROIN OPEN W/NONAUTOG PATCH GRAFT Left 09/28/2024 REV. FEM. ANASTOMOSIS OF SYN. BYPASS GRAFT USING NONAUTOGENOUS PATCH ANGIOPLASTY-JENNIFER (WRVU 23.15) performed by Hayley Torres MD at [facility] MAIN OR PRO UNLISTED PROCEDURE VASCULAR SURGERY Left 09/28/2024 HARVEST SAPHENOUS VEIN (WRVU 13.24) performed by Hayley Torres MD at [facility] MAIN OR VS ARTERIOGRAM LOWER EXTREMITY VASCULAR SURGERY 07/20/2024 VS Arteriogram Lower Extremity Vascular Surgery 07/20/2024 Anabel Finney MD [facility] INTERVENTIONL RAD Social History: Patient lives [...] Pt issued and educated on use of rn clinical documentation specialist for rn clinical documentation specialist lower items. Self-feeding: Independent Grooming: Set up [...] Discharge planning Total Minutes, Occupational Therapy: 35 ([id number]) OT Evaluation Code Rationale: Diagnosis & Pertinent Co-Morbidities affecting Plan of Care: see PMHx Occupational Profile & Client History: Brief Expanded Extensive x Assessment of Occupational Performance: 1-3 performance deficits 3-5 performance deficits x 5 + performance deficits Clinical Decision Making: Low Moderate High x Clinical decision making of low complexity using standardized patient assessment instrument and measurable assessment of functional outcome. Pager: [phone] Jorge Goetz OT 10/03/2024 Occupational Therapy Rehabilitation [...] - 10/02/2024 2:06 PM EST [facility] [place] Patient Name: Geovanna Dixon Jr. : [id number] MR#: [id number] Case Date: 10/02/2024 Surgeon: Surgeons and Role: [...] the groin, we then attached a 15 Omani Jose drain to the Yung drain, and remove the Yung drain, replacing it with the 15 Omani Jose drain. In a similar way we [...] through: Primary Insurance: [employer] MANAGED MEDICARE Payor: [employer] MANAGED MEDICARE / Plan: [employer]GED MEDICARE PPO / Product Type: *No Product type* / Secondary Insurance: N/A Plan for discharge is: Pending Hospital Course and PT/OT Recommendations Outpatient Agency/Support Group Needs: None Home Health Services: Occupational Therapy, Physical Therapy, Registered Nurse Agency Referrals: [facility]. [address] [place] [address] Transportation: family or friend will provide Barriers to discharge: Global: Denies needs/concerns at this time Plan: Patient is not medically ready related to: patient is going to the OR today for a washout andremains on blowout precautions. Plan going forward is: when able patient will need to work with PT/OT Anticipated Date of Discharge: 10/10/2024 Penny ROSAS, RN CM Phone: [phone] Pager: [phone] * Plan of Care - Heidi Mobley [...] Consult Note - Katelyn Oconnor [facility] - 09/30/2024 7:43 AM EST [facility] Pharmacokinetics Note Drug: Vancomycin Pharmacokinetic target: AUC24 (range) 400-600 mg/L.hr Current regimen: 1500 mg IV every 8 hours Geovanna Dixon is a(n) 49 years old male receiving Vancomycin 1500 mg IV every 8 hours for bacteremia Recent measured serum creatinine values: 09/29/2024 23:52 0.48 mg/dL 09/28/2024 23:51 0.52 mg/dL 09/27/2024 23:58 0.48 mg/dL Assessment: Analysis of the most recent level(s) using PropertybaseRX gives the following patient-specific pharmacokinetic parameters: CL: [...] - 09/29/2024 2:41 PM EST [facility] [place] Patient Name: Geovanna Dixon Jr. : [id number] MR#: [id number] Case Date: 09/29/2024 Surgeon: Surgeons and Role: [...] mobilized and explored. The area around the METAL WORK DUCT INSTALLER was irrigated copiously. The flap was then [...] Therapy, Physical Therapy, Registered Nurse Agency Referrals: [facility] [address] [place] [address] Transportation: family or friend will provide Barriers [...] Discharge: 10/04/2024 Penny ROSAS RN CM Phone: [phone] Pager: [phone] * Consult Note - Rose Wright APRN [...] week ago. He [place] [facility] [place] and went to the OR [...] Procedure Component Value - Date/Time Blood culture [[id number]] (Abnormal) Collected: 09/27/242132 Lab Status: Preliminary result Specimen: Blood, Venous Updated: 09/29/24 0721 Blood Culture Methicillin Resistant Staphylococcus aureus Gram Stain Aerobic Bottle: Gram positive cocci in clusters Blood culture [[id number]] (Abnormal) Collected: 09/26/24 1845 Lab Status: Preliminary result Specimen: Blood, Venous Updated: 09/29/24 0719 Blood Culture Methicillin Resistant Staphylococcus aureus Comment: isolated. Susceptibilities previously reported. Gram Stain Aerobic Bottle: Gram positive cocci in clusters Blood culture [[id number]] (Abnormal) (Susceptibility) Collected: 09/26/24 1422 Lab Status: Preliminary result Specimen: Blood, Venous Updated: 09/29/24 0717 Blood Culture Methicillin Resistant Staphylococcus aureus Comment: detected by PCR Isolate saved. If future testing is required, contact the Microbiology Chip Person. Gram Stain Aerobic Bottle: Gram positive cocci in clusters Susceptibility Methicillin Resistant Staphylococcus aureus VITEK 2 METHOD Clindamycin Resistant Gentamicin Susceptible [1] Linezolid Susceptible Oxacillin Resistant Trimethoprim/Sulfa Susceptible Vancomycin Susceptible [1] Gentamicin is not appropriate for monotherapy for gram-positive infections. AFB culture [[id number]] Collected: 09/27/24 165 Lab Status: Preliminary result Specimen: Tissue from Thigh, Left Updated: 09/28/24 2226 Acid Fast Stain No acid fast bacilli seen Anaerobic Culture [[id number]] Collected: 09/27/24 165 Lab Status: Preliminary result Specimen: Tissue from Thigh, Left Updated: 09/28/24 1355 Anaerobic Culture No anaerobic organisms isolated to date Sonicated Tissue/Implant Culture [[id number]] Collected: 09/26/24 1716 Lab Status: Preliminary result Specimen: Vascular Graft from Leg, Left Updated: 09/28/24 1323 Sonicated Tissue/Implant Culture Culture in progress Tissue Culture, Aerobic Only [[id number]] (Abnormal) Collected: 09/27/24 1654 Lab Status: Preliminary result Specimen: Tissue from Thigh, Left Updated: 09/28/24 1049 Tissue Culture Rare Staphylococcus aureus Gram Stain Few Neutrophils seen No microorganisms seen Abscess/Wound Aspirate Culture, Aerobic Only [[id number]] (Abnormal) (Susceptibility) Collected: 09/26/24 1702 Lab Status: [...] to doxycycline. Abscess/Wound Aspirate Culture, Aerobic Only [[id number]] (Abnormal) (Susceptibility) Collected: 09/26/241649 Lab Status: Preliminary [...] is considered susceptible to doxycycline. Fungus culture [[id number]] Collected: 09/27/241653 Lab Status: Preliminary result Specimen: Tissue from Thigh, Left Updated: 09/28/24 0748 Fungus Culture No fungus isolated to date AFB culture [[id number]] Collected: 09/26/241701 Lab Status: Preliminary result Specimen: Abscess from Knee, Left Updated: 09/27/24 2335 Acid Fast Stain No acid fast bacilli seen MRSA PCR Screen [[id number]] (Abnormal) Collected: 09/27/24 0751 Lab Status: Final result Specimen: Swab from Nares Updated: 09/27/24 1156 MRSA PCR Detected Narrative: This test was performed using the Xpert MRSA NxG test kit and is run on the Definition 6 GeneXpert Dx System. This test is cleared by the U.S. Food and Drug Administration for clinical use and its performance characteristics have been verified by the [facility] at [facility]. Anaerobic Culture [[id number]] Collected: 09/26/241649 Lab Status: Preliminary result Specimen: Abscess from Groin, Left Updated: 09/27/24 1142 Anaerobic Culture No anaerobic organisms isolated to date Anaerobic Culture [[id number]] Collected: 09/26/24 170 Lab Status: Preliminary result Specimen: Abscess from Knee, Left Updated: 09/27/24 1142 Anaerobic Culture No anaerobic organisms isolated to date Fungus culture [[id number]] Collected: 09/26/24 1650 Lab Status: Preliminary result Specimen: Abscess from Groin, Left Updated: 09/27/24726 Fungus Culture No fungus isolated to date Fungus culture [[id number]] Collected: 09/26/24 1702 Lab Status: Preliminary result Specimen: Abscess from Knee, Left Updated: 09/27/24726 Fungus Culture No fungus isolated to date New Studies Results for orders placed or performed during the hospital encounter of 09/26/[address] Read CT Lower Extremity (Exam End: 09/26/2024 1:50 PM) Result Value WORKSTATION ID [id number] Impression 1. There is a left femoral [...] who have questions please contact the health lawn care specialist that requested your imaging first. Electronically signed by: Lisette Bruno MD, [facility] ([phone]), at 09/26/2024 3:[address] Lower Extremity w Contrast Left (Exam End: 09/27/2024 9:16 AM) Result Value WORKSTATION ID [id number] Impression IMPRESSION: 1. Interval explant of LEFT [...] who have questions please contact the health lawn care specialist that requested your imaging first. Electronically signed by: Ignacia Chi MD, [facility] ([phone]), at 09/27/2024 10:48 AM 09/28 ABIs Interpretation: [...] at proximal and distal anastomoses and a Bladen drain placed from left groin to left [...] - 09/28/2024 12:23 PM EST [facility] [place] Patient Name: Geovanna Dixon Jr. : [id number] MR#: [id number] Case Date: 09/28/2024 Surgeon: Surgeons and Role: [...] pericardial patch and PTFE willard over the METAL WORK DUCT INSTALLER was unincorporated. 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 Systemic heparin was administered. Next, the METAL WORK DUCT INSTALLER, SFA, and DFA were clamped. An 11-blade scalpel was used to excise the PTFE graft willard and the prior bovine pericardial patch, and all prior Prolene sutures were removed. Residual plaque in the arterial lumen was removed using a [employer] elevator. The harvested vein patch was cut [...] the midline with division of the first professional sports scout, such that the sartorius muscle was free [...] prior bypass graft were irrigated below the Bladen drains. Significant thrombus burden was expelled in [...] - 09/28/2024 12:23 PM EST [facility] [place] Patient Name: Geovanna Dixon Jr. : [id number] MR#: [id number] Case Date: 09/28/2024 Surgeon: Surgeons and Role: [...] - Prior bovine pericardial patch over the METAL WORK DUCT INSTALLER was unincorporated. - Resection of prior femoral [...] Consult Note - Tea Nguyen, [facility] - 09/28/2024 9:23 AM EST [...] Analysis of the most recent level(s) using PropertybaseRX gives the following patient-specific pharmacokinetic parameters: CL: [...] Note Patient Name: Geovanna Dixon Jr. : [id number] MR#: [id number] Case Date: 09/27/2024 Surgeon: Surgeons and Role: [...] - 09/27/2024 4:27 PM EST [facility] [place] Patient Name: Geovanna Dixon Jr. : [id number] MR#: [id number] Case Date: 09/26/2024 Surgeon: Surgeons and Role: [...] distal anastomoses with Prolene tag on latter. Bladen drain placed from left groin to left [...] HPI/Surgical Indications: 49M with history of left METAL WORK DUCT INSTALLER-BK popliteal artery bypass graft with PTFE (July [...] - 09/27/2024 4:27 PM EST [facility] [place] Patient Name: Geovanna Dixon Jr. : [id number] MR#: [id number] Case Date: 09/27/2024 Surgeon: Surgeons and Role: [...] week ago. He presented [place] [facility] [place] and went to the OR [...] management and to provide a review of emt intermediate diabetes care. Glargine 25 units administered this [...] Cunningham APRN Endocrinology Diabetes Management Service Pager: [phone] Weekends please page [phone] 80 minute visit was spent in counseling [...] surrogate would be surrogate decision maker per [place] surrogate decision making law. (Only good for 180 days) Any patient receiving care in [place] must abide by [place] law. The hierarchy for surrogate decision making [...] (i) The agent with financial power of compliance attorney or a conservator appointed in accordance [...] homeless or living in a mcfp (including now)?: No In the past 12 months has the [employer], gas, oil, or water [employer] threatened to shut off services in your [...] DME: none Home Address confirmed as: [address] [address] Social & Family Supports: All names listed [...] his home before. Health/Prescription Coverage: Primary Insurance: [employer] MANAGED MEDICARE Payor: [employer] MANAGED MEDICARE / Plan: [facility] MANAGED MEDICARE PPO / Product Type: *No Product type* / Secondary Insurance: N/A ; Prescription Coverage: Yes Preferred Pharmacy: [facility] - [place], [place] - [address] [facility] [address] [facility] [address] [facility] [address] - [place], [place] - [address] [address] [place], [place] - [address] [place] [address] [address] [facility] [address] [facility] [address] [place] Status: Patient is a : No Primary Care Provider confirmed: JUSTIN Roberson [phone] Patient/Caregiver Goals of Treatment: patient will need [...] where referrals are placed. Provided patient with [facility] Star Quality Rating handout. They have requested referrals to: [facility]. [address] [place] [address] Expected date of discharge: TBD Referral routed to the Clinical Cytopathologist for matching with agency/vendor and to provide [...] care as indicated. Penny ROSAS, RN Phone: [phone] Pager: [phone] * Consult Note - Stacey Thomas MD [...] extremity aching prompting him to go to [facility]. The groin pain dissipated. About a week later on 09/26 he developed left-sided groin pain prompting him to go to [facility] once again. Lab work notable for WBC count of 21, lactic acid 3.6. He underwent evaluation with a CT scan demonstrating an abscess from the left groin operative site the entire left of the graft down by the knee. He was transferred to [facility] for further care and he [...] 3.51) performed by Thony Garcia MD at [facility] MAIN OR PRO BYPASS GRAFT OTHR, FEM-TIBIAL Left 08/01/2024 @BYPASS GRAFT, FEM-ANT TIBIAL, -POST TIBIAL, -PERONEAL, -DP W\ SYNTHETIC CONDUIT (WRVU 23.66) performed by Lisette Maldonado MD at [facility] MAIN OR PRO CABG, ARTERY-VEIN, SINGLE 01/04/2012 @CABG, VENOUS & ARTERIAL GRAFT;SINGLE VEIN GRAFT performed by INNA TOVAR at [facility] MAIN OR PRO ENDOSCOPY W/VIDEO-ASST VEIN HARVEST, CABG 01/04/2012 ENDOSCOPIC HARVEST VEIN(S) FOR CABG performed by INNA TOVAR at [facility] MAIN OR VS ARTERIOGRAM LOWER EXTREMITY VASCULAR SURGERY 07/20/2024 VS Arteriogram Lower Extremity Vascular Surgery 07/20/2024 Anabel Finney MD [facility] INTERVENTIONL RAD Medications: potassium chloride ER [...] Continuous Infusions: lactated Ringers 100 mL/hr (09/27/24 3434) sodium chloride 0.9% PRN Meds:.potassium chloride ER [...] admitted to SICU as a transfer from [facility] for suspected graft infection/sepsis. A/Ox4, able [...] - 09/26/2024 4:50 PM EST [facility] [place] Patient Name: Geovanna Dixon Jr. 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-BK popliteal artery bypass with PTFE performed in [...] 3.51) performed by Thony Garcia MD at [facility] MAIN OR PRO BYPASS GRAFT OTHR, FEM-TIBIAL Left 08/01/2024 @BYPASS GRAFT, FEM-ANT TIBIAL, -POST TIBIAL, -PERONEAL, -DP W\ SYNTHETIC CONDUIT (WRVU 23.66) performed by Lisette Maldonado MD at [facility] MAIN OR PRO CABG, ARTERY-VEIN, SINGLE 01/04/2012 @CABG, VENOUS & ARTERIAL GRAFT;SINGLE VEIN GRAFT performed by INNA TOVAR at [facility] MAIN OR PRO ENDOSCOPY W/VIDEO-ASST VEIN HARVEST, CABG 01/04/2012 ENDOSCOPIC HARVEST VEIN(S) FOR CABG performed by INNA TOVAR at [facility] MAIN OR VS ARTERIOGRAM LOWER EXTREMITY VASCULAR SURGERY 07/20/2024 VS Arteriogram Lower Extremity Vascular Surgery 07/20/2024 Anabel Finney MD [facility] INTERVENTIONL RAD Social Hx: Social History [...] 3 times daily. Use as instructed Indications: [id number] each 1 FreeStyle Lancets 28 gauge Misc [...] 1:00 PM EST Appointment XRay at [address] [place] [phone] Isabela Hayward APRN [facility] INFECTIOUS DISEASE [place] [address] 11/09/2024 1:30 PM EST Office [place] [address] Isabela Hayward, [employer]OR ROUTE [employer]ER [facility] [place] [address] 11/10/2024 10:00 AM EST Office [place] [phone] Dai Whitman, RESHMA 11/21/2024 2:15 PM EST Office [place] [phone] Dayanara Grover MD [facility] [place] [address] Pending Results Name Type Priority Associated Diagnoses [...] EST I&D Deep Abscess Bursa/Hematoma Thigh/Knee Region (00035) 09/27/2024 3:45 PM EST Infected explanted left leg bypass graft Drain Lower Leg Deep Absc/Hematoma (26178) 09/27/2024 3:45 PM EST Infected explanted left leg bypass graft Excision, Infec Graft, Extremity (35923) 09/27/2024 3:45 PM EST Infected explanted left leg bypass graft Debridement, Skin, Sub-Q Tissue (27250) 09/27/2024 3:45 PM EST Infected explanted left [...] Non-fasting (10/16/2024) Glucose Lvl - External 124(H) [facility] Blood Urea Nitrogen - External 17 [facility] Creatinine - External 0.9 [facility] EGFR - External 104.05 [facility] Anion Gap - External 11.6(H) [facility] Sodium - External 141 [facility] Potassium - External 4.3 [facility] Chloride - External 103 [facility] CO2 - External 26.4 [facility] Calcium - External 9.0 [facility] Protein, Total - External 6.9 [facility] Albumin - External 3.0(L) [facility] Total Bilirubin - External 0.20 [facility] Alk Phos - External 124(H) [facility] AST (SGOT) - External 12 [facility] ALT (SGPT) - External 22 [facility] Blood VENOUS BLOOD SPECIMEN / Unknown 10/16/2024 Amaya Hernandez MD CHEMISTRY ORDERABLES [facility] [address] [place], [place] [address] [phone] * CK (10/16/2024) CK, Total - External 39 [facility] Blood VENOUS BLOOD SPECIMEN / Unknown 10/16/2024 Amaya Hernandez MD CHEMISTRY ORDERABLES [facility] [address] [place], [place] [address] [phone] * (ABNORMAL) CBC (with Diff) (10/16/2024) WBC - External 10.99(H) [facility] RBC - External 3.71(L) [facility] Hemoglobin - External 10.8(L) [facility] Hematocrit - External 33.8(L) [facility] MCV - External 91 [facility] MCH - External 29.1 [facility] MCHC - External 32.0 [facility] RDWCV - External 14.2(H) [facility] Platelets - External 512(H) [facility] MPV - External 9.8 [facility] NRBC % - External 0.0 [facility] NRBC Abs - External 0.0 [facility] Neutrophils % - External 64.2 [facility] Lymphocytes % - External 25.8 [facility] Monocytes % - External 6.8 [facility] Eosinophils % - External 2.0 [facility] Basophils % - External 0.9 [facility] Immature Gran % - External 0.3 [facility] Neutr ABS (ANC) - External 7.06(H) [facility] Lymphocyte ABS - External 2.84 [facility] Monocyte ABS - External 0.75 [facility] Eosinophil ABS - External 0.22 [facility] Basophil ABS - External 0.10 [facility] Blood VENOUS BLOOD SPECIMEN / Unknown 10/16/2024 Amaya Hernandez MD HEMATOLOGY ORDERABLE [place] [id number] [place], [place] [address] [phone] * POC, GLUCOSE (10/10/2024 4:27 PM EST) Glucometer, POC 172 65 - 199 mg/dL 10/10/2024 4:27 PM EST [facility] Comment:Supplemental ranges: <140 mg/dL before meals <180 mg/dL all other times of the day. Blood CAPILLARY BLOOD / Unknown 10/10/2024 4:27 PM EST 10/10/2024 4:27 PM EST Hayley Torres MD POINT OF CARE TEST O GILDA Performing Organization Address [facility] Co de Phone Number [facility] [place] [address] * POC, GLUCOSE (10/10/2024 11:10 AM EST) Glucometer, POC 174 65 - 199 mg/dL 10/10/2024 11:11 AM EST [facility] Comment:Supplemental ranges: <140 mg/dL before meals <180 mg/dL all other times of the day. Blood CAPILLARY BLOOD / Unknown 10/10/2024 11:10 AM EST 10/10/2024 11:11 AM EST Hayley Torres MD POINT OF CARE TEST O GILDA Performing Organization Address City/[facility]/ZIP Co de Phone Number [facility] [place] [address] * POC, GLUCOSE (10/10/2024 7:46 AM EST) Glucometer, POC 141 65 - 199 mg/dL 10/10/2024 7:46 AM EST [facility] Comment:Supplemental ranges: <140 mg/dL before meals <180 mg/dL all other times of the day. Blood CAPILLARY BLOOD / Unknown 10/10/2024 7:46 AM EST 10/10/2024 7:46 AM EST Hayley Torres MD POINT OF CARE TEST O GILDA Performing Organization Address [facility] Co de Phone Number [facility] [place] [address] * POC, GLUCOSE (10/10/2024 6:11 AM EST) Glucometer, POC 127 65 - 199 mg/dL 10/10/2024 6:11 AM EST [facility] Comment:Supplemental ranges: <140 mg/dL before meals <180 mg/dL all other times of the day. Blood CAPILLARY BLOOD / Unknown 10/10/2024 6:11 AM EST 10/10/2024 6:11 AM EST Hayley Torres MD POINT OF CARE TEST O GILDA Performing Organization Address [facility] Co de Phone Number [facility] [place] [address] * CK (10/10/2024 12:33 AM EST) Creatine Kinase 32 0 - 200 unit/L 10/10/2024 8:54 AM EST [facility] Blood VENOUS BLOOD SPECIMEN / Unknown Venipuncture / Unknown 10/10/2024 12:33 AM EST 10/10/2024 12:43 AM EST María Carranza [employer] CHEMISTRY ORDER RANDELL Performing Organization Address [facility]/ZIP Co de Phone Number [facility] [place] [address] * (ABNORMAL) CBC (with Diff) (10/10/2024 12:33 AM EST) White Blood Cell 11.57(H) 4.00 - 9.50 x10(3)/mc L 10/10/2024 12:48 AM EST [facility] Red Blood Cell 3.75(L) 4.58 - 5.54 x10(6)/mc L 10/10/2024 12:48 AM [facility] Hemoglobin 11.1(L) 13.7 - 16.5 g/dL 10/10/2024 12:48 AM [facility] Hematocrit 33.5(L) 40.5 - 48.5 % 10/10/2024 12:48 AM [facility] Mean Cell Volume 89.3 82.9 - 93.1 fL 10/10/2024 12:48 AM [facility] Mean Cell Hemoglobin 29.6 27.5 - 32.1 pg 10/10/2024 12:48 AM [facility] Mean Cell Hemoglobin Concentration 33.1 32.0 - 35.7 g/dL 10/10/2024 12:48 AM [facility] Platelet 823(H) 145 - 357 x10(3)/mc L 10/10/2024 12:48 AM [facility] Mean Platelet Volume 9.2 7.6 - 12.9 fL 10/10/2024 12:48 AM [facility] RDW Standard Deviation 46.3(H) 36.0 - 45.0 fL 10/10/2024 12:48 AM [facility] RDW coefficient of variation 14.6(H) 11.4 - 13.8 % 10/10/2024 12:48 AM [facility] NRBC% auto 0.0 % 10/10/2024 12:48 AM [facility] NRBC Absolute <0.01 <0.01 x10(3)/mc L 10/10/2024 12:48 AM [facility] Neutrophil % 61.3 % 10/10/2024 12:48 AM [facility] Neutrophil Absolute (ANC) - Automated 7.08(H) 1.70 - 6.10 x10(3)/mc L 10/10/2024 12:48 AM [facility] Lymph % 28.7 % 10/10/2024 12:48 AM [facility] Lymph Absolute 3.32(H) 0.90 - 3.20 x10(3)/mc L 10/10/2024 12:48 AM EST [facility] Monocyte % 7.0 % 10/10/2024 12:48 AM [facility] Monocyte Absolute 0.81 0.30 - 0.90 x10(3)/mc L 10/10/2024 12:48 AM [facility] Eos % 1.6 % 10/10/2024 12:48 AM [facility] Eos Absolute 0.19 0.00 - 0.40 x10(3)/mc L 10/10/2024 12:48 AM [facility] Basophil % 1.0 % 10/10/2024 12:48 AM [facility] Baso Absolute 0.12(H) 0.00 - 0.10 x10(3)/mc L 10/10/2024 12:48 AM [facility] Immature Gran % 0.4 % 12:48 AM [facility] Immature Gran Absolute 0.05(H) 0.00 - 0.04 x10(3)/mc L 10/10/2024 12:48 AM [facility] Blood VENOUS BLOOD SPECIMEN / Unknown Venipuncture / Unknown 10/10/2024 12:33 AM EST 10/10/2024 12:43 AM EST Hayley Torres MD HEMATOLOGY ORDERABLE S [facility] [place] [address] * (ABNORMAL) Basic Metabolic Panel (10/10/2024 12:33 AM EST) Glucose 125 65 - 199 mg/dL 10/10/2024 1:12 AM [facility] Comment:Glucose Concentratio n >=200 mg/dL plus symptoms is consistent with Diabetes Mellitus. Blood Urea Nitrogen 19 10 - 20 mg/dL 10/10/2024 1:12 AM [facility] Creatinine 0.57(L) 0.80 - 1.50 mg/dL 10/10/2024 1:12 AM [facility] Sodium 138 135 - 145 mMol/L 10/10/2024 1:12 AM [facility] Potassium 4.1 3.5 - 5.0 mMol/L 10/10/2024 1:12 AM [facility] Chloride 103 98 - 107 mMol/L 10/10/2024 1:12 AM [facility] Carbon Dioxide 25 22 - 31 mMol/L 10/10/2024 1:12 AM [facility] Anion Gap 10 5 - 15 mMol/L 10/10/2024 1:12 AM [facility] Calcium 9.4 8.5 - 10.5 mg/dL 10/10/2024 1:12 AM [facility] Est Glomerular Filtration Rate - Male 119 mL/min/1. 73 m?? 10/10/2024 1:12 AM [facility] [...] AM EST Hayley Torres MD CHEMISTRY ORDERABLES [facility] [place] [address] * Phosphorus (10/10/2024 12:33 AM EST) Phosphorus 3.8 2.5 - 4.5 mg/dL 10/10/2024 1:12 AM EST [facility] Blood VENOUS BLOOD SPECIMEN / Unknown Venipuncture / Unknown 10/10/2024 12:33 AM EST 10/10/2024 12:43 AM EST Hayley Torres MD CHEMISTRY ORDERABLES Performing Organization Address City/[facility]/ZIP Co de Phone Number [facility] [place] [address] * Magnesium (10/10/2024 12:33 AM EST) Magnesium 0.81 0.69 - 1.07 mMol/L 10/10/2024 1:12 AM EST [facility] Blood VENOUS BLOOD SPECIMEN / Unknown Venipuncture / Unknown 10/10/2024 12:33 AM EST 10/10/2024 12:43 AM EST Hayley Torres MD CHEMISTRY ORDERABLES Performing Organization Address [facility]/ZIP Co de Phone Number [facility] [place] [address] * POC, GLUCOSE (10/10/2024 12:31 AM EST) Glucometer, POC 119 65 - 199 mg/dL 10/10/2024 12:32 AM EST [facility] Comment:Supplemental ranges: <140 mg/dL before meals <180 mg/dL all other times of the day. Blood CAPILLARY BLOOD / Unknown 10/10/2024 12:31 AM EST 10/10/2024 12:32 AM EST Hayley Torres MD POINT OF CARE TEST O RDERABLES Performing Organization Address City/[facility]/ZIP Co de Phone Number [facility] [place] [address] * POC, GLUCOSE (10/09/2024 8:16 PM EST) Glucometer, POC 104 65 - 199 mg/dL 10/09/2024 8:16 PM EST [facility] Comment:Supplemental ranges: <140 mg/dL before meals <180 mg/dL all other times of the day. Blood CAPILLARY BLOOD / Unknown 10/09/2024 8:16 PM EST 10/09/2024 8:16 PM EST Hayley Torres MD POINT OF CARE TEST Stephanie VO Performing Organization Address [facility] de Phone Number [facility] [place] [address] * POC, GLUCOSE (10/09/2024 3:57 PM EST) [facility] Signature Glucometer, POC 120 65 - 199 mg/dL 10/09/2024 3:57 PM EST [facility] Comment:Supplemental ranges: <140 mg/dL before meals <180 mg/dL all other times of the day. Blood CAPILLARY BLOOD / Unknown 10/09/2024 3:57 PM EST 10/09/2024 3:57 PM EST Hayley Torres MD POINT OF CARE TEST Stephanie VO Performing Organization Address [facility] de Phone Number [facility] [place] [address] * Place PICC Line: Contact Vascular Access Page [phone] Extremity to exclude: No restrictions; Is PICC [...] to the planned procedure. Hand Hygiene: The applications engineer manufacturing did perform hand hygiene prior to line insertion. Catheter type: PICC Lot number: [id number] Procedure Technique: Skin was prepped with chlorhexidine. [...] catheter placement. A 4 Fr. single lumen Shark Punch Power catheter was placed into the left [...] Team) (10/09/2024 1:55 PM EST) WORKSTATION ID [id number] DH RAD Anatomical Region Laterality Modality N/A [...] who have questions please contact the health lawn care specialist that requested your imaging first. ? Electronically signed by: Terell Slavador MD, [facility] ([phone]), at 10/09/2024 3:30 PM Narrative 10/09/2024 3:30 [...] patients who have questions please contactthe health lawn care specialist that requested your imaging first. Electronically signed by: Terell Salvador MD, [facility]([phone]), at 10/09/2024 3:30 PM María GILBERT * POC, GLUCOSE (10/09/2024 11:40 AM EST) Glucometer, POC 180 65 - 199 mg/dL 10/09/2024 11:40 AM EST [facility] Comment:Supplemental ranges: <140 mg/dL before meals <180 mg/dL all other times of the day. Blood CAPILLARY BLOOD / Unknown 10/09/2024 11:40 AM EST 10/09/2024 11:41 AM EST Hayley Torres MD POINT OF CARE TEST O GILDA Performing Organization Address City/[facility]/ZIP Co de Phone Number [facility] [place] [address] * (ABNORMAL) POC, GLUCOSE (10/09/2024 7:35 AM EST) Glucometer, POC 215(H) 65 - 199 mg/dL 10/09/2024 7:36 AM EST [facility] Comment:Supplemental ranges: <140 mg/dL before meals <180 mg/dL all other times of the day. Blood CAPILLARY BLOOD / Unknown 10/09/2024 7:35 AM EST 10/09/2024 7:36 AM EST Hayley Torres MD POINT OF CARE TEST O GILDA [facility] [place] [address] * POC, GLUCOSE (10/09/2024 4:26 AM EST) Glucometer, POC 175 65 - 199 mg/dL 10/09/2024 4:26 AM EST [facility] Comment:Supplemental ranges: <140 mg/dL before meals <180 mg/dL all other times of the day. Blood CAPILLARY BLOOD / Unknown 10/09/2024 4:26 AM EST 10/09/2024 4:26 AM EST Hayley Torres MD POINT OF CARE TEST O RDERABLES [facility] [place] [address] * (ABNORMAL) CBC (with Diff) (10/09/2024 12:45 AM EST) White Blood Cell 11.27(H) 4.00 - 9.50 x10(3)/mc L 10/09/2024 1:31 AM [facility] Red Blood Cell 3.74(L) 4.58 - 5.54 x10(6)/mc L 10/09/2024 1:31 AM [facility] Hemoglobin 10.8(L) 13.7 - 16.5 g/dL 10/09/2024 1:31 AM [facility] Hematocrit 33.5(L) 40.5 - 48.5 % 10/09/2024 1:31 AM [facility] Mean Cell Volume 89.6 82.9 - 93.1 fL 10/09/2024 1:31 AM [facility] Mean Cell Hemoglobin 28.9 27.5 - 32.1 pg 10/09/2024 1:31 AM [facility] Mean Cell Hemoglobin Concentration 32.2 32.0 - 35.7 g/dL 10/09/2024 1:31 AM [facility] Platelet 886(H) 145 - 357 x10(3)/mc L 10/09/2024 1:31 AM [facility] Mean Platelet Volume 9.5 7.6 - 12.9 fL 10/09/2024 1:31 AM [facility] RDW Standard Deviation 47.7(H) 36.0 - 45.0 fL 10/09/2024 1:31 AM [facility] RDW coefficient of variation 14.6(H) 11.4 - 13.8 % 10/09/2024 1:31 AM [facility] NRBC% auto 0.0 % 10/09/2024 1:31 AM [facility] NRBC Absolute <0.01 <0.01 x10(3)/mc L 10/09/2024 1:31 AM [facility] Neutrophil % 61.7 % 10/09/2024 1:31 AM [facility] Neutrophil Absolute (ANC) - Automated 6.95(H) 1.70 - 6.10 x10(3)/mc L 10/09/2024 1:31 AM [facility] Lymph % 28.3 % 10/09/2024 1:31 AM [facility] Lymph Absolute 3.19 0.90 - 3.20 x10(3)/mc L 10/09/2024 1:31 AM [facility] Monocyte % 6.8 % 10/09/2024 1:31 AM [facility] Monocyte Absolute 0.77 0.30 - 0.90 x10(3)/mc L 10/09/2024 1:31 AM [facility] Eos % 1.5 % 10/09/2024 1:31 AM [facility] Eos Absolute 0.17 0.00 - 0.40 x10(3)/mc L 10/09/2024 1:31 AM [facility] Basophil % 1.1 % 10/09/2024 1:31 AM [facility] Baso Absolute 0.12(H) 0.00 - 0.10 x10(3)/mc L 10/09/2024 1:31 AM [facility] Immature Gran % 0.6 % 1:31 AM [facility] Immature Gran Absolute 0.07(H) 0.00 - 0.04 x10(3)/mc L 10/09/2024 1:31 AM [facility] Blood VENOUS BLOOD SPECIMEN / Unknown Venipuncture / Unknown 10/09/2024 12:45 AM EST 10/09/2024 1:27 AM EST Hayley Torres MD HEMATOLOGY ORDERABLE S [facility] [place] [address] * (ABNORMAL) Basic Metabolic Panel (10/09/2024 12:45 AM EST) Glucose 135 65 - 199 mg/dL 10/09/2024 1:54 AM EST [facility] Comment:Glucose Concentratio n >=200 mg/dL plus symptoms is consistent with Diabetes Mellitus. Blood Urea Nitrogen 22(H) 10 - 20 mg/dL 10/09/2024 1:54 AM [facility] Creatinine 0.53(L) 0.80 - 1.50 mg/dL 10/09/2024 1:54 AM [facility] Sodium 138 135 - 145 mMol/L 10/09/2024 1:54 AM [facility] Potassium 4.1 3.5 - 5.0 mMol/L 10/09/2024 1:54 AM [facility] Chloride 102 98 - 107 mMol/L 10/09/2024 1:54 AM [facility] Carbon Dioxide 24 22 - 31 mMol/L 10/09/2024 1:54 AM [facility] Anion Gap 12 5 - 15 mMol/L 10/09/2024 1:54 AM [facility] Calcium 9.4 8.5 - 10.5 mg/dL 10/09/2024 1:54 AM [facility] Est Glomerular Filtration Rate - Male 122 mL/min/1. 73 m?? 10/09/2024 1:54 AM [facility] [...] AM EST Hayley Torres MD CHEMISTRY ORDERABLES [facility] [place] [address] * Phosphorus (10/09/2024 12:45 AM EST) Phosphorus 3.9 2.5 - 4.5 mg/dL 10/09/2024 1:54 AM EST [facility] Blood VENOUS BLOOD SPECIMEN / Unknown Venipuncture / Unknown 10/09/2024 12:45 AM EST 10/09/2024 1:27 AM EST Hayley Torres MD CHEMISTRY ORDERABLES Performing Organization Address City/[facility]/ZIP Co de Phone Number [facility] [place] [address] * Magnesium (10/09/2024 12:45 AM EST) Magnesium 0.80 0.69 - 1.07 mMol/L 10/09/2024 1:54 AM EST [facility] Blood VENOUS BLOOD SPECIMEN / Unknown Venipuncture / Unknown 10/09/2024 12:45 AM EST 10/09/2024 1:27 AM EST Hayley Torres MD CHEMISTRY ORDERABLES [facility] [place] [address] * POC, GLUCOSE (10/09/2024 12:11 AM EST) Glucometer, POC 157 65 - 199 mg/dL 10/09/2024 12:11 AM EST [facility] Comment:Supplemental ranges: <140 mg/dL before meals <180 mg/dL all other times of the day. Blood CAPILLARY BLOOD / Unknown 10/09/2024 12:11 AM EST 10/09/2024 12:11 AM EST Hayley Torres MD POINT OF CARE TEST O GILDA [facility] [place] [address] * POC, GLUCOSE (10/08/2024 7:25 PM EST) Glucometer, POC 157 65 - 199 mg/dL 10/08/2024 7:25 PM EST [facility] Comment:Supplemental ranges: <140 mg/dL before meals <180 mg/dL all other times of the day. Blood CAPILLARY BLOOD / Unknown 10/08/2024 7:25 PM EST 10/08/2024 7:25 PM EST Hayley Torres MD POINT OF CARE TEST O GILDA Performing Organization Address City/[facility]/ZIP Co de Phone Number [facility] [place] [address] * POC, GLUCOSE (10/08/2024 5:54 PM EST) Glucometer, POC 198 65 - 199 mg/dL 10/08/2024 5:54 PM EST [facility] Comment:Supplemental ranges: <140 mg/dL before meals <180 mg/dL all other times of the day. Blood CAPILLARY BLOOD / Unknown 10/08/2024 5:54 PM EST 10/08/2024 5:54 PM EST Hayley Torres MD POINT OF CARE TEST O GILDA [facility] [place] [address] * (ABNORMAL) POC, GLUCOSE (10/08/2024 4:08 PM EST) Glucometer, POC 281(H) 65 - 199 mg/dL 10/08/2024 4:08 PM EST [facility] Comment:Supplemental ranges: <140 mg/dL before meals <180 mg/dL all other times of the day. Blood CAPILLARY BLOOD / Unknown 10/08/2024 4:08 PM EST 10/08/2024 4:09 PM EST Hayley Torres MD POINT OF CARE TEST O GILDA Performing Organization Address City/[facility]/ZIP Co de Phone Number [facility] [place] [address] * POC, GLUCOSE (10/08/2024 12:44 PM EST) Glucometer, POC 146 65 - 199 mg/dL 10/08/2024 12:44 PM EST [facility] Comment:Supplemental ranges: <140 mg/dL before meals <180 mg/dL all other times of the day. Blood CAPILLARY BLOOD / Unknown 10/08/2024 12:44 PM EST 10/08/2024 12:44 PM EST Hayley Torres MD POINT OF CARE TEST O GILDA Performing Organization Address City/[facility]/ZIP Co de Phone Number [facility] [place] [address] * POC, GLUCOSE (10/08/2024 8:30 AM EST) Glucometer, POC 172 65 - 199 mg/dL 10/08/2024 8:30 AM EST [facility] Comment:Supplemental ranges: <140 mg/dL before meals <180 mg/dL all other times of the day. Blood CAPILLARY BLOOD / Unknown 10/08/2024 8:30 AM EST 10/08/2024 8:30 AM EST Hayley Torres MD POINT OF CARE TEST O RDERABLES Performing Organization Address [facility] Co de Phone Number [facility] [place] [address] * Vancomycin Level, Random (10/08/2024 5:59 AM EST) Vancomycin, Random 6.8 mg/L 2023 7:58 AM EST [facility] Comment:This level is for de termination of the patient's vancomycin ecqf-[id number]-curve (AUC) value. Contact the inpatient pharmacy for interpretation. Blood VENOUS BLOOD SPECIMEN / Unknown Venipuncture / Unknown 10/08/2024 5:59 AM EST 10/08/2024 7:29 AM EST Hayley Torres MD CHEMISTRY ORDERABLES Performing Organization Address [facility] de Phone Number [facility] [place] [address] * POC, GLUCOSE (10/08/2024 4:02 AM EST) [facility] Glucometer, POC 163 65 - 199 mg/dL 10/08/2024 4:02 AM EST [facility] Comment:Supplemental ranges: <140 mg/dL before meals <180 mg/dL all other times of the day. Blood CAPILLARY BLOOD / Unknown 10/08/2024 4:02 AM EST 10/08/2024 4:02 AM EST Hayley Torres MD POINT OF CARE TEST O RDERABLES Performing Organization Address [facility] Co de Phone Number [facility] [place] [address] * (ABNORMAL) CBC (with Diff) (10/08/2024 12:08 AM EST) White Blood Cell 10.35(H) 4.00 - 9.50 x10(3)/mc L 10/08/2024 12:29 AM EST [facility] Red Blood Cell 3.53(L) 4.58 - 5.54 x10(6)/mc L 10/08/2024 12:29 AM [facility] Hemoglobin 10.2(L) 13.7 - 16.5 g/dL 10/08/2024 12:29 AM [facility] Hematocrit 31.7(L) 40.5 - 48.5 % 10/08/2024 12:29 AM [facility] Mean Cell Volume 89.8 82.9 - 93.1 fL 10/08/2024 12:29 AM [facility] Mean Cell Hemoglobin 28.9 27.5 - 32.1 pg 10/08/2024 12:29 AM [facility] Mean Cell Hemoglobin Concentration 32.2 32.0 - 35.7 g/dL 10/08/2024 12:29 AM [facility] Platelet 778(H) 145 - 357 x10(3)/mc L 10/08/2024 12:29 AM [facility] Mean Platelet Volume 9.1 7.6 - 12.9 fL 10/08/2024 12:29 AM [facility] RDW Standard Deviation 47.5(H) 36.0 - 45.0 fL 10/08/2024 12:29 AM [facility] RDW coefficient of variation 14.6(H) 11.4 - 13.8 % 10/08/2024 12:29 AM [facility] NRBC% auto 0.0 % 10/08/2024 12:29 AM [facility] NRBC Absolute <0.01 <0.01 x10(3)/mc L 10/08/2024 12:29 AM [facility] Neutrophil % 60.9 % 10/08/2024 12:29 AM [facility] Neutrophil Absolute (ANC) - Automated 6.30(H) 1.70 - 6.10 x10(3)/mc L 10/08/2024 12:29 AM [facility] Lymph % 28.4 % 10/08/2024 12:29 AM [facility] Lymph Absolute 2.94 0.90 - 3.20 x10(3)/mc L 10/08/2024 12:29 AM [facility] Monocyte % 7.2 % 10/08/2024 12:29 AM [facility] Monocyte Absolute 0.75 0.30 - 0.90 x10(3)/mc L 10/08/2024 12:29 AM [facility] Eos % 1.7 % 10/08/2024 12:29 AM [facility] Eos Absolute 0.18 0.00 - 0.40 x10(3)/mc L 10/08/2024 12:29 AM [facility] Basophil % 1.0 % 10/08/2024 12:29 AM [facility] Baso Absolute 0.10 0.00 - 0.10 x10(3)/mc L 10/08/2024 12:29 AM [facility] Immature Gran % 0.8 % 12:29 AM [facility] Immature Gran Absolute 0.08(H) 0.00 - 0.04 x10(3)/mc L 10/08/2024 12:29 AM [facility] Blood VENOUS BLOOD SPECIMEN / Unknown Venipuncture / Unknown 10/08/2024 12:08 AM EST 10/08/2024 12:23 AM EST Hayley Torres MD HEMATOLOGY ORDERABLE S [facility] [place] [address] * (ABNORMAL) Basic Metabolic Panel (10/08/2024 12:08 AM EST) Glucose 151 65 - 199 mg/dL 10/08/2024 12:50 AM [facility] Comment:Glucose Concentratio n >=200 mg/dL plus symptoms is consistent with Diabetes Mellitus. Blood Urea Nitrogen 19 10 - 20 mg/dL 10/08/2024 12:50 AM [facility] Creatinine 0.60(L) 0.80 - 1.50 mg/dL 10/08/2024 12:50 AM [facility] Sodium 135 135 - 145 mMol/L 10/08/2024 12:50 AM [facility] Potassium 3.8 3.5 - 5.0 mMol/L 10/08/2024 12:50 AM [facility] Chloride 101 98 - 107 mMol/L 10/08/2024 12:50 AM [facility] Carbon Dioxide 25 22 - 31 mMol/L 10/08/2024 12:50 AM [facility] Anion Gap 9 5 - 15 mMol/L 10/08/2024 12:50 AM [facility] Calcium 9.2 8.5 - 10.5 mg/dL 10/08/2024 12:50 AM [facility] Est Glomerular Filtration Rate - Male 118 mL/min/1. 73 m?? 10/08/2024 12:50 AM [facility] [...] AM EST Hayley Torres MD CHEMISTRY ORDERABLES [facility] [place] [address] * Phosphorus (10/08/2024 12:08 AM EST) Phosphorus 3.4 2.5 - 4.5 mg/dL 10/08/2024 12:50 AM EST [facility] Blood VENOUS BLOOD SPECIMEN / Unknown Venipuncture / Unknown 10/08/2024 12:08 AM EST 10/08/2024 12:23 AM EST Hayley Torres MD CHEMISTRY ORDERABLES Performing Organization Address City/[facility]/ZIP Co de Phone Number [facility] [place] [address] * Magnesium (10/08/2024 12:08 AM EST) Magnesium 0.85 0.69 - 1.07 mMol/L 10/08/2024 12:50 AM EST [facility] Blood VENOUS BLOOD SPECIMEN / Unknown Venipuncture / Unknown 10/08/2024 12:08 AM EST 10/08/2024 12:23 AM EST Hayley Torres MD CHEMISTRY ORDERABLES Performing Organization Address City/[facility]/ZIP Co de Phone Number [facility] [place] [address] * CK (10/08/2024 12:08 AM EST) Creatine Kinase 24 0 - 200 unit/L 10/08/2024 12:50 AM EST [facility] Blood VENOUS BLOOD SPECIMEN / Unknown Venipuncture / Unknown 10/08/2024 12:08 AM EST 10/08/2024 12:23 AM EST Hayley Torres MD CHEMISTRY ORDERABLES Performing Organization Address City/[facility] Co de Phone Number [facility] [place] [address] * POC, GLUCOSE (10/08/2024 12:05 AM EST) Glucometer, POC 100 65 - 199 mg/dL 10/08/2024 12:05 AM EST [facility] Comment:Supplemental ranges: <140 mg/dL before meals <180 mg/dL all other times of the day. Blood CAPILLARY BLOOD / Unknown 10/08/2024 12:05 AM EST 10/08/2024 12:05 AM EST Hayley Torres MD POINT OF CARE TEST O GILDA [facility] [place] [address] * POC, GLUCOSE (10/07/2024 8:29 PM EST) Glucometer, POC 107 65 - 199 mg/dL 10/07/2024 8:30 PM EST [facility] Comment:Supplemental ranges: <140 mg/dL before meals <180 mg/dL all other times of the day. Blood CAPILLARY BLOOD / Unknown 10/07/2024 8:29 PM EST 10/07/2024 8:30 PM EST Hayley Torres MD POINT OF CARE TEST O GILDA Performing Organization Address City/[facility]/ZIP Co de Phone Number [facility] [place] [address] * POC, GLUCOSE (10/07/2024 4:33 PM EST) Glucometer, POC 129 65 - 199 mg/dL 10/07/2024 4:33 PM EST [facility] Comment:Supplemental ranges: <140 mg/dL before meals <180 mg/dL all other times of the day. Blood CAPILLARY BLOOD / Unknown 10/07/2024 4:33 PM EST 10/07/2024 4:34 PM EST aHyley Torres MD POINT OF CARE TEST O GILDA [facility] [place] [address] * (ABNORMAL) POC, GLUCOSE (10/07/2024 10:58 AM EST) Glucometer, POC 221(H) 65 - 199 mg/dL 10/07/2024 10:59 AM EST [facility] Comment:Supplemental ranges: <140 mg/dL before meals <180 mg/dL all other times of the day. Blood CAPILLARY BLOOD / Unknown 10/07/2024 10:58 AM EST 10/07/2024 10:59 AM EST Hayley Torres MD POINT OF CARE TEST O GILDA Performing Organization Address City/[facility]/ZIP Co de Phone Number [facility] [place] [address] * (ABNORMAL) POC, GLUCOSE (10/07/2024 7:42 AM EST) Glucometer, POC 201(H) 65 - 199 mg/dL 10/07/2024 7:42 AM EST [facility] Comment:Supplemental ranges: <140 mg/dL before meals <180 mg/dL all other times of the day. Blood CAPILLARY BLOOD / Unknown 10/07/2024 7:42 AM EST 10/07/2024 7:43 AM EST Hayley Torres MD POINT OF CARE TEST O GILDA Performing Organization Address City/[facility]/ZIP Co de Phone Number [facility] [place] [address] * POC, GLUCOSE (10/07/2024 3:58 AM EST) Glucometer, POC 150 65 - 199 mg/dL 10/07/2024 3:58 AM EST [facility] Comment:Supplemental ranges: <140 mg/dL before meals <180 mg/dL all other times of the day. Blood CAPILLARY BLOOD / Unknown 10/07/2024 3:58 AM EST 10/07/2024 3:58 AM EST Hayley Torres MD POINT OF CARE TEST O GILDA [facility] [place] [address] * (ABNORMAL) CBC (with Diff) (10/07/2024 12:06 AM EST) White Blood Cell 11.27(H) 4.00 - 9.50 x10(3)/mc L 10/07/2024 12:19 AM [facility] Red Blood Cell 3.47(L) 4.58 - 5.54 x10(6)/mc L 10/07/2024 12:19 AM [facility] Hemoglobin 10.1(L) 13.7 - 16.5 g/dL 10/07/2024 12:19 AM [facility] Hematocrit 30.9(L) 40.5 - 48.5 % 10/07/2024 12:19 AM [facility] Mean Cell Volume 89.0 82.9 - 93.1 fL 10/07/2024 12:19 AM [facility] Mean Cell Hemoglobin 29.1 27.5 - 32.1 pg 10/07/2024 12:19 AM [facility] Mean Cell Hemoglobin Concentration 32.7 32.0 - 35.7 g/dL 10/07/2024 12:19 AM [facility] Platelet 789(H) 145 - 357 x10(3)/mc L 10/07/2024 12:19 AM [facility] Mean Platelet Volume 9.0 7.6 - 12.9 fL 10/07/2024 12:19 AM [facility] RDW Standard Deviation 45.7(H) 36.0 - 45.0 fL 10/07/2024 12:19 AM [facility] RDW coefficient of variation 14.3(H) 11.4 - 13.8 % 10/07/2024 12:19 AM [facility] NRBC% auto 0.0 % 10/07/2024 12:19 AM [facility] NRBC Absolute <0.01 <0.01 x10(3)/mc L 10/07/2024 12:19 AM [facility] Neutrophil % 62.9 % 10/07/2024 12:19 AM [facility] Neutrophil Absolute (ANC) - Automated 7.09(H) 1.70 - 6.10 x10(3)/mc L 10/07/2024 12:19 AM [facility] Lymph % 28.3 % 10/07/2024 12:19 AM [facility] Lymph Absolute 3.19 0.90 - 3.20 x10(3)/mc L 10/07/2024 12:19 AM [facility] Monocyte % 5.7 % 10/07/2024 12:19 AM [facility] Monocyte Absolute 0.64 0.30 - 0.90 x10(3)/mc L 10/07/2024 12:19 AM [facility] Eos % 1.5 % 10/07/2024 12:19 AM [facility] Eos Absolute 0.17 0.00 - 0.40 x10(3)/mc L 10/07/2024 12:19 AM [facility] Basophil % 0.7 % 10/07/2024 12:19 AM [facility] Baso Absolute 0.08 0.00 - 0.10 x10(3)/mc L 10/07/2024 12:19 AM [facility] Immature Gran % 0.9 % 12:19 AM [facility] Immature Gran Absolute 0.10(H) 0.00 - 0.04 x10(3)/mc L 10/07/2024 12:19 AM [facility] Blood VENOUS BLOOD SPECIMEN / Unknown Venipuncture / Unknown 10/07/2024 12:06 AM EST 10/07/2024 12:11 AM EST Hayley Torres MD HEMATOLOGY ORDERABLE S [facility] [place] [address] * (ABNORMAL) Basic Metabolic Panel (10/07/2024 12:06 AM EST) Glucose 145 65 - 199 mg/dL 10/07/2024 12:40 AM [facility] Comment:Glucose Concentratio n >=200 mg/dL plus symptoms is consistent with Diabetes Mellitus. Blood Urea Nitrogen 18 10 - 20 mg/dL 10/07/2024 12:40 AM [facility] Creatinine 0.61(L) 0.80 - 1.50 mg/dL 10/07/2024 12:40 AM [facility] Sodium 139 135 - 145 mMol/L 10/07/2024 12:40 AM [facility] Potassium 4.0 3.5 - 5.0 mMol/L 10/07/2024 12:40 AM [facility] Chloride 104 98 - 107 mMol/L 10/07/2024 12:40 AM [facility] Carbon Dioxide 25 22 - 31 mMol/L 10/07/2024 12:40 AM [facility] Anion Gap 10 5 - 15 mMol/L 10/07/2024 12:40 AM [facility] Calcium 9.0 8.5 - 10.5 mg/dL 10/07/2024 12:40 AM [facility] Est Glomerular Filtration Rate - Male 117 mL/min/1. 73 m?? 10/07/2024 12:40 AM [facility] [...] AM EST Hayley Torres MD CHEMISTRY ORDERABLES [facility] [place] [address] * Phosphorus (10/07/2024 12:06 AM EST) Phosphorus 4.2 2.5 - 4.5 mg/dL 10/07/2024 12:40 AM EST [facility] Blood VENOUS BLOOD SPECIMEN / Unknown Venipuncture / Unknown 10/07/2024 12:06 AM EST 10/07/2024 12:11 AM EST Hayley Torres MD CHEMISTRY ORDERABLES Performing Organization Address City/[facility]/ZIP Co de Phone Number [facility] [place] [address] * Magnesium (10/07/2024 12:06 AM EST) Magnesium 0.85 0.69 - 1.07 mMol/L 10/07/2024 12:40 AM EST [facility] Blood VENOUS BLOOD SPECIMEN / Unknown Venipuncture / Unknown 10/07/2024 12:06 AM EST 10/07/2024 12:11 AM EST Hayley Torres MD CHEMISTRY ORDERABLES Performing Organization Address City/[facility]/ZIP Co de Phone Number [facility] [place] [address] * POC, GLUCOSE (10/07/2024 12:04 AM EST) Glucometer, POC 149 65 - 199 mg/dL 10/07/2024 12:04 AM EST [facility] Comment:Supplemental ranges: <140 mg/dL before meals <180 mg/dL all other times of the day. Blood CAPILLARY BLOOD / Unknown 10/07/2024 12:04 AM EST 10/07/2024 12:05 AM EST Hayley Torres MD POINT OF CARE TEST O GILDA Performing Organization Address [facility] Co de Phone Number [facility] [place] [address] * POC, GLUCOSE (10/06/2024 7:24 PM EST) Glucometer, POC 151 65 - 199 mg/dL 10/06/2024 7:24 PM EST [facility] Comment:Supplemental ranges: <140 mg/dL before meals <180 mg/dL all other times of the day. Blood CAPILLARY BLOOD / Unknown 10/06/2024 7:24 PM EST 10/06/2024 7:24 PM EST Hayley Torres MD POINT OF CARE TEST O GILDA Performing Organization Address [facility] Co de Phone Number [facility] [place] [address] * POC, GLUCOSE (10/06/2024 5:32 PM EST) Glucometer, POC 126 65 - 199 mg/dL 10/06/2024 5:32 PM EST [facility] Comment:Supplemental ranges: <140 mg/dL before meals <180 mg/dL all other times of the day. Blood CAPILLARY BLOOD / Unknown 10/06/2024 5:32 PM EST 10/06/2024 5:32 PM EST Hayley Torres MD POINT OF CARE TEST O GILDA Performing Organization Address [facility] Co de Phone Number [facility] [place] [address] * XR PICC Placement Over 5 Years with Imaging Guidance (IV Team) (10/06/2024 3:04 PM EST) WORKSTATION ID [id number] DH RAD Anatomical Region Laterality Modality N/A [...] who have questions please contact the health lawn care specialist that requested your imaging first. ? Electronically signed by: Charles Hamilton MD, [facility] ??([phone]), at 10/06/2024 3:43 PM Narrative 10/06/2024 3:43 [...] patients who have questions please contactthe health lawn care specialist that requested your imaging first. Electronically signed by: Charles Hamilton MD, [facility]([phone]), at 10/06/2024 3:43 PM Hayley Torres MD IMG FLUORO ORDERABLE S * Place PICC Line: Contact Vascular Access Page [phone] Extremity to exclude: No restrictions; Is PICC [...] to the planned procedure. Hand Hygiene: The applications engineer manufacturing did perform hand hygiene prior to line insertion. Catheter type: PICC Lot number: [id number] Procedure Technique: Skin was prepped with chlorhexidine. [...] - 199 mg/dL 10/06/2024 12:12 PM EST [facility] Comment:Supplemental ranges: <140 mg/dL before meals <180 mg/dL all other times of the day. Blood CAPILLARY BLOOD / Unknown 10/06/2024 12:12 PM EST 10/06/2024 12:12 PM EST Hayley Torres MD POINT OF CARE TEST O GILDA Performing Organization Address [facility] Co de Phone Number [facility] [place] [address] * (ABNORMAL) POC, GLUCOSE (10/06/2024 7:34 AM EST) Glucometer, POC 209(H) 65 - 199 mg/dL 10/06/2024 7:34 AM EST [facility] Comment:Supplemental ranges: <140 mg/dL before meals <180 mg/dL all other times of the day. Blood CAPILLARY BLOOD / Unknown 10/06/2024 7:34 AM EST 10/06/2024 7:34 AM EST Hayley Torres MD POINT OF CARE TEST O GILDA Performing Organization Address City/[facility] Co de Phone Number [facility] [place] [address] * POC, GLUCOSE (10/06/2024 3:29 AM EST) Pathologist [facility] Glucometer, POC 151 65 - 199 mg/dL 10/06/2024 3:29 AM EST [facility] Comment:Supplemental ranges: <140 mg/dL before meals <180 mg/dL all other times of the day. Blood CAPILLARY BLOOD / Unknown 10/06/2024 3:29 AM EST 10/06/2024 3:29 AM EST Hayley Torres MD POINT OF CARE TEST O RDERABLES [facility] [place] [address] * Vancomycin Level, Random (10/06/2024 12:03 AM EST) Pathologist [facility] Vancomycin, Random 20.5 mg/L 2023 9:00 AM EST [facility] Comment:This level is for de termination of the patient's vancomycin [id number]-[id number]-curve (AUC) value. Contact the inpatient pharmacy for interpretation. Blood VENOUS BLOOD SPECIMEN / Unknown Venipuncture / Unknown 10/06/2024 12:03 AM EST 10/06/2024 12:15 AM EST Hayley Torres MD CHEMISTRY ORDERABLES [facility] [place] [address] * (ABNORMAL) CBC (with Diff) (10/06/2024 12:03 AM EST) [facility] White Blood Cell 12.26(H) 4.00 - 9.50 x10(3)/mc L 10/06/2024 12:19 AM EST [facility] Red Blood Cell 3.49(L) 4.58 - 5.54 x10(6)/mc L 10/06/2024 12:19 AM EST [facility] Hemoglobin 10.1(L) 13.7 - 16.5 g/dL 10/06/2024 12:19 AM [facility] Hematocrit 30.9(L) 40.5 - 48.5 % 10/06/2024 12:19 AM [facility] Mean Cell Volume 88.5 82.9 - 93.1 fL 10/06/2024 12:19 AM [facility] Mean Cell Hemoglobin 28.9 27.5 - 32.1 pg 10/06/2024 12:19 AM [facility] Mean Cell Hemoglobin Concentration 32.7 32.0 - 35.7 g/dL 10/06/2024 12:19 AM [facility] Platelet 772(H) 145 - 357 x10(3)/mc L 10/06/2024 12:19 AM [facility] Mean Platelet Volume 9.0 7.6 - 12.9 fL 10/06/2024 12:19 AM [facility] RDW Standard Deviation 46.0(H) 36.0 - 45.0 fL 10/06/2024 12:19 AM [facility] RDW coefficient of variation 14.5(H) 11.4 - 13.8 % 10/06/2024 12:19 AM [facility] NRBC% auto 0.0 % 10/06/2024 12:19 AM [facility] NRBC Absolute <0.01 <0.01 x10(3)/mc L 10/06/2024 12:19 AM [facility] Neutrophil % 66.7 % 10/06/2024 12:19 AM [facility] Neutrophil Absolute (ANC) - Automated 8.18(H) 1.70 - 6.10 x10(3)/mc L 10/06/2024 12:19 AM [facility] Lymph % 24.1 % 10/06/2024 12:19 AM [facility] Lymph Absolute 2.95 0.90 - 3.20 x10(3)/mc L 10/06/2024 12:19 AM [facility] Monocyte % 6.2 % 10/06/2024 12:19 AM [facility] Monocyte Absolute 0.76 0.30 - 0.90 x10(3)/mc L 10/06/2024 12:19 AM [facility] Eos % 1.3 % 10/06/2024 12:19 AM [facility] Eos Absolute 0.16 0.00 - 0.40 x10(3)/mc L 10/06/2024 12:19 AM [facility] Basophil % 0.5 % 10/06/2024 12:19 AM [facility] Baso Absolute 0.06 0.00 - 0.10 x10(3)/mc L 10/06/2024 12:19 AM [facility] Immature Gran % 1.2 % 12:19 AM [facility] Immature Gran Absolute 0.15(H) 0.00 - 0.04 x10(3)/mc L 10/06/2024 12:19 AM [facility] Blood VENOUS BLOOD SPECIMEN / Unknown Venipuncture / Unknown 10/06/2024 12:03 AM EST 10/06/2024 12:15 AM EST Hyaley Torres MD HEMATOLOGY ORDERABLE S Performing Organization Address City/State/[facility] Co de Phone Number [facility] [place] [address] * Basic Metabolic Panel (10/06/2024 12:03 AM EST) Glucose 94 65 - 199 mg/dL 10/06/2024 12:44 AM [facility] Comment:Glucose Concentratio n >=200 mg/dL plus symptoms is consistent with Diabetes Mellitus. Blood Urea Nitrogen 17 10 - 20 mg/dL 10/06/2024 12:44 AM [facility] Creatinine 0.85 0.80 - 1.50 mg/dL 10/06/2024 12:44 AM [facility] Sodium 139 135 - 145 mMol/L 10/06/2024 12:44 AM [facility] Potassium 4.3 3.5 - 5.0 mMol/L 10/06/2024 12:44 AM [facility] Chloride 103 98 - 107 mMol/L 10/06/2024 12:44 AM [facility] Carbon Dioxide 22 22 - 31 mMol/L 10/06/2024 12:44 AM [facility] Anion Gap 14 5 - 15 mMol/L 10/06/2024 12:44 AM [facility] Calcium 8.8 8.5 - 10.5 mg/dL 10/06/2024 12:44 AM [facility] Est Glomerular Filtration Rate - Male 106 mL/min/1. 73 m?? 10/06/2024 12:44 AM [facility] [...] AM EST Hayley Torres MD CHEMISTRY ORDERABLES [facility] [place] [address] * Phosphorus (10/06/2024 12:03 AM EST) Phosphorus 4.3 2.5 - 4.5 mg/dL 10/06/2024 12:44 AM [facility] Blood VENOUS BLOOD SPECIMEN / Unknown Venipuncture / Unknown 10/06/2024 12:03 AM EST 10/06/2024 12:15 AM EST Hayley Torres MD CHEMISTRY ORDERABLES Performing Organization Address City/[facility]/ZIP Co de Phone Number [facility] [place] [address] * Magnesium (10/06/2024 12:03 AM EST) Magnesium 0.83 0.69 - 1.07 mMol/L 10/06/2024 12:44 AM EST [facility] Blood VENOUS BLOOD SPECIMEN / Unknown Venipuncture / Unknown 10/06/2024 12:03 AM EST 10/06/2024 12:15 AM EST Hayley Torres MD CHEMISTRY ORDERABLES Performing Organization Address [facility]/ZIP Co de Phone Number [facility] [place] [address] * POC, GLUCOSE (10/06/2024 12:02 AM EST) Glucometer, POC 98 65 - 199 mg/dL 10/06/2024 12:02 AM EST [facility] Comment:Supplemental ranges: <140 mg/dL before meals <180 mg/dL all other times of the day. Blood CAPILLARY BLOOD / Unknown 10/06/2024 12:02 AM EST 10/06/2024 12:02 AM EST Hayley Torres MD POINT OF CARE TEST O RDERABLES Performing Organization Address City/[facility]/ZIP Co de Phone Number [facility] [place] [address] * POC, GLUCOSE (10/05/2024 7:22 PM EST) Glucometer, POC 186 65 - 199 mg/dL 10/05/2024 7:23 PM EST [facility] Comment:Supplemental ranges: <140 mg/dL before meals <180 mg/dL all other times of the day. Blood CAPILLARY BLOOD / Unknown 10/05/2024 7:22 PM EST 10/05/2024 7:23 PM EST Hayley Torres MD POINT OF CARE TEST O GILDA Performing Organization Address City/[facility]/ZIP Co de Phone Number [facility] [place] [address] * POC, GLUCOSE (10/05/2024 5:35 PM EST) Glucometer, POC 177 65 - 199 mg/dL 10/05/2024 5:35 PM EST [facility] Comment:Supplemental ranges: <140 mg/dL before meals <180 mg/dL all other times of the day. Blood CAPILLARY BLOOD / Unknown 10/05/2024 5:35 PM EST 10/05/2024 5:35 PM EST Hayley Torres MD POINT OF CARE TEST O GILDA Performing Organization Address City/[facility] Co de Phone Number [facility] [place] [address] * POC, GLUCOSE (10/05/2024 3:57 PM EST) Glucometer, POC 141 65 - 199 mg/dL 10/05/2024 3:57 PM EST [facility] Comment:Supplemental ranges: <140 mg/dL before meals <180 mg/dL all other times of the day. Blood CAPILLARY BLOOD / Unknown 10/05/2024 3:57 PM EST 10/05/2024 3:57 PM EST Hayley Torres MD POINT OF CARE TEST O GILDA [facility] [place] [address] * POC, GLUCOSE (10/05/2024 11:50 AM EST) Glucometer, POC 134 65 - 199 mg/dL 10/05/2024 11:50 AM EST [facility] Comment:Supplemental ranges: <140 mg/dL before meals <180 mg/dL all other times of the day. Blood CAPILLARY BLOOD / Unknown 10/05/2024 11:50 AM EST 10/05/2024 11:50 AM EST Hayley Torres MD POINT OF CARE TEST O GILDA Performing Organization Address [facility] Co de Phone Number [facility] [place] [address] * POC, GLUCOSE (10/05/2024 7:51 AM EST) Glucometer, POC 114 65 - 199 mg/dL 10/05/2024 7:51 AM EST [facility] Comment:Supplemental ranges: <140 mg/dL before meals <180 mg/dL all other times of the day. Blood CAPILLARY BLOOD / Unknown 10/05/2024 7:51 AM EST 10/05/2024 7:51 AM EST Hayley Torres MD POINT OF CARE TEST O GILDA Performing Organization Address [facility] Co de Phone Number [facility] [place] [address] * POC, GLUCOSE (10/05/2024 4:18 AM EST) Glucometer, POC 147 65 - 199 mg/dL 10/05/2024 4:18 AM EST [facility] Comment:Supplemental ranges: <140 mg/dL before meals <180 mg/dL all other times of the day. Blood CAPILLARY BLOOD / Unknown 10/05/2024 4:18 AM EST 10/05/2024 4:18 AM EST Hayley Torres MD POINT OF CARE TEST O GILDA Performing Organization Address City/[facility] Co de Phone Number [facility] [place] [address] * (ABNORMAL) CBC (with Diff) (10/04/2024 11:50 PM EST) White Blood Cell 12.73(H) 4.00 - 9.50 x10(3)/mc L 10/05/2024 12:10 AM [facility] Red Blood Cell 3.45(L) 4.58 - 5.54 x10(6)/mc L 10/05/2024 12:10 AM [facility] Hemoglobin 9.8(L) 13.7 - 16.5 g/dL 10/05/2024 12:10 AM [facility] Hematocrit 30.6(L) 40.5 - 48.5 % 10/05/2024 12:10 AM [facility] Mean Cell Volume 88.7 82.9 - 93.1 fL 10/05/2024 12:10 AM [facility] Mean Cell Hemoglobin 28.4 27.5 - 32.1 pg 10/05/2024 12:10 AM [facility] Mean Cell Hemoglobin Concentration 32.0 32.0 - 35.7 g/dL 10/05/2024 12:10 AM [facility] Platelet 709(H) 145 - 357 x10(3)/mc L 10/05/2024 12:10 AM [facility] Mean Platelet Volume 8.9 7.6 - 12.9 fL 10/05/2024 12:10 AM [facility] RDW Standard Deviation 45.4(H) 36.0 - 45.0 fL 10/05/2024 12:10 AM [facility] RDW coefficient of variation 14.3(H) 11.4 - 13.8 % 10/05/2024 12:10 AM [facility] NRBC% auto 0.0 % 10/05/2024 12:10 AM [facility] NRBC Absolute <0.01 <0.01 x10(3)/mc L 10/05/2024 12:10 AM [facility] Neutrophil % 68.5 % 10/05/2024 12:10 AM [facility] Neutrophil Absolute (ANC) - Automated 8.72(H) 1.70 - 6.10 x10(3)/mc L 10/05/2024 12:10 AM [facility] Lymph % 21.3 % 10/05/2024 12:10 AM [facility] Lymph Absolute 2.71 0.90 - 3.20 x10(3)/mc L 10/05/2024 12:10 AM [facility] Monocyte % 5.5 % 10/05/2024 12:10 AM [facility] Monocyte Absolute 0.70 0.30 - 0.90 x10(3)/mc L 10/05/2024 12:10 AM [facility] Eos % 1.6 % 10/05/2024 12:10 AM [facility] Eos Absolute 0.20 0.00 - 0.40 x10(3)/mc L 10/05/2024 12:10 AM [facility] Basophil % 0.5 % 10/05/2024 12:10 AM [facility] Baso Absolute 0.07 0.00 - 0.10 x10(3)/mc L 10/05/2024 12:10 AM [facility] Immature Gran % 2.6 % 12:10 AM [facility] Immature Gran Absolute 0.33(H) 0.00 - 0.04 x10(3)/mc L 10/05/2024 12:10 AM [facility] Blood VENOUS BLOOD SPECIMEN / Unknown Venipuncture / Unknown 10/04/2024 11:50 PM EST 10/05/2024 12:03 AM EST Hayley Torres MD HEMATOLOGY ORDERABLE S [facility] [place] [address] * (ABNORMAL) Basic Metabolic Panel (10/04/2024 11:50 PM EST) Glucose 104 65 - 199 mg/dL 10/05/2024 12:35 AM [facility] Comment:Glucose Concentratio n >=200 mg/dL plus symptoms is consistent with Diabetes Mellitus. Blood Urea Nitrogen 13 10 - 20 mg/dL 10/05/2024 12:35 AM [facility] Creatinine 0.55(L) 0.80 - 1.50 mg/dL 10/05/2024 12:35 AM [facility] Sodium 140 135 - 145 mMol/L 10/05/2024 12:35 AM [facility] Potassium 3.9 3.5 - 5.0 mMol/L 10/05/2024 12:35 AM [facility] Chloride 105 98 - 107 mMol/L 10/05/2024 12:35 AM [facility] Carbon Dioxide 24 22 - 31 mMol/L 10/05/2024 12:35 AM [facility] Anion Gap 11 5 - 15 mMol/L 10/05/2024 12:35 AM [facility] Calcium 9.0 8.5 - 10.5 mg/dL 10/05/2024 12:35 AM [facility] Est Glomerular Filtration Rate - Male 121 mL/min/1. 73 m?? 10/05/2024 12:35 AM [facility] [...] Torres MD CHEMISTRY ORDERABLES Performing Organization Address City/[facility]/ZIP Co de Phone Number [facility] [place] [address] * Phosphorus (10/04/2024 11:50 PM EST) Phosphorus 4.2 2.5 - 4.5 mg/dL 10/05/2024 12:35 AM EST [facility] Blood VENOUS BLOOD SPECIMEN / Unknown Venipuncture / Unknown 10/04/2024 11:50 PM EST 10/05/2024 12:03 AM EST Hayley Torres MD CHEMISTRY ORDERABLES Performing Organization Address City/[facility] Co de Phone Number [facility] [place] [address] * Magnesium (10/04/2024 11:50 PM EST) Magnesium 0.89 0.69 - 1.07 mMol/L 10/05/2024 12:35 AM EST [facility] Blood VENOUS BLOOD SPECIMEN / Unknown Venipuncture / Unknown 10/04/2024 11:50 PM EST 10/05/2024 12:03 AM EST Hayley Torres MD CHEMISTRY ORDERABLES Performing Organization Address City/[facility]/ZIP Co de Phone Number [facility] [place] [address] * POC, GLUCOSE (10/04/2024 11:36 PM EST) Glucometer, POC 121 65 - 199 mg/dL 10/04/2024 11:36 PM EST [facility] Comment:Supplemental ranges: <140 mg/dL before meals <180 mg/dL all other times of the day. Blood CAPILLARY BLOOD / Unknown 10/04/2024 11:36 PM EST 10/04/2024 11:36 PM EST Hayley Torres MD POINT OF CARE TEST O RDERABLES Performing Organization Address [facility] Co de Phone Number [facility] [place] [address] * POC, GLUCOSE (10/04/2024 7:32 PM EST) Glucometer, POC 163 65 - 199 mg/dL 10/04/2024 7:32 PM EST [facility] Comment:Supplemental ranges: <140 mg/dL before meals <180 mg/dL all other times of the day. Blood CAPILLARY BLOOD / Unknown 10/04/2024 7:32 PM EST 10/04/2024 7:32 PM EST Hayley Torres MD POINT OF CARE TEST O RDERABLES Performing Organization Address [facility] Co de Phone Number [facility] [place] [address] * EKG 12 Lead (10/04/2024 7:14 PM EST) Ventricular rate 81 BPM MUSE SYSTEM Atrial Rate 81 BPM MUSE SYSTEM P-R Interval 174 ms MUSE SYSTEM QRS Duration 112 ms MUSE SYSTEM Q-T Interval 422 ms MUSE SYSTEM QTC Calculated (Bezet) 490 ms MUSE SYSTEM Calculated P Frazer 34 degrees MUSE SYSTEM Calculated R Frazer 11 degrees MUSE SYSTEM Calculated T Frazer 59 degrees MUSE SYSTEM INTERPRETATION Normal sinus rhythm Cannot rule out Inferior infarct , age undetermined Nonspecific T wave abnormality Borderline ECG When compared with ECG of 29-MAY-2024 14:51, Nonspecific T wave abnormality now evident in Lateral leads Confirmed by MD Robert, Deandre Guadarrama ([id number]) on 10/05/2024 3:35:42 PM MUSE SYSTEM 10/04/2024 7:14 PM EST 10/05/2024 3:35 PM EST Hayley Torres MD ECG ORDERABLES Performing Organization Address [facility] Co de Phone Number MUSE SYSTEM * POC, GLUCOSE (10/04/2024 5:07 PM EST) Glucometer, POC 95 65 - 199 mg/dL 10/04/2024 5:07 PM EST [facility] Comment:Supplemental ranges: <140 mg/dL before meals <180 mg/dL all other times of the day. Blood CAPILLARY BLOOD / Unknown 10/04/2024 5:07 PM EST 10/04/2024 5:07 PM EST Hayley Torres MD POINT OF CARE TEST O RDERAHERNANDEZ Performing Organization Address City/[facility]/ZIP Co de Phone Number [facility] [place] [address] * POC, GLUCOSE (10/04/2024 4:49 PM EST) Glucometer, POC 70 65 - 199 mg/dL 10/04/2024 4:50 PM EST [facility] Comment:Supplemental ranges: <140 mg/dL before meals <180 mg/dL all other times of the day. Blood CAPILLARY BLOOD / Unknown 10/04/2024 4:49 PM EST 10/04/2024 4:50 PM EST Hayley Torres MD POINT OF CARE TEST O GILDA Performing Organization Address [facility] Co de Phone Number [facility] [place] [address] * POC, GLUCOSE (10/04/2024 11:49 AM EST) Glucometer, POC 93 65 - 199 mg/dL 10/04/2024 11:49 AM EST [facility] Comment:Supplemental ranges: <140 mg/dL before meals <180 mg/dL all other times of the day. Blood CAPILLARY BLOOD / Unknown 10/04/2024 11:49 AM EST 10/04/2024 11:49 AM EST Hayley Torres MD POINT OF CARE TEST O GILDA Performing Organization Address City/[facility]/ZIP Co de Phone Number [facility] [place] [address] * Vancomycin, trough (10/04/2024 7:53 AM EST) Vancomycin, Trough 19.8 10.0 - 20.0 mg/L 10/04/2024 9:16 AM EST [facility] Comment: Varies according to infection source. Blood VENOUS BLOOD SPECIMEN / Unknown Venipuncture / Unknown 10/04/2024 7:53 AM EST 10/04/2024 8:11 AM EST Hayley Torres MD CHEMISTRY ORDERABLES Performing Organization Address [facility] Co de Phone Number [facility] [place] [address] * POC, GLUCOSE (10/04/2024 7:51 AM EST) Glucometer, POC 105 65 - 199 mg/dL 10/04/2024 7:52 AM EST [facility] Comment:Supplemental ranges: <140 mg/dL before meals <180 mg/dL all other times of the day. Blood CAPILLARY BLOOD / Unknown 10/04/2024 7:51 AM EST 10/04/2024 7:52 AM EST Hayley Torres MD POINT OF CARE TEST O RDERABLES Performing Organization Address [facility] Co de Phone Number [facility] [place] [address] * POC, GLUCOSE (10/04/2024 3:53 AM EST) Glucometer, POC 90 65 - 199 mg/dL 10/04/2024 3:53 AM EST [facility] Comment:Supplemental ranges: <140 mg/dL before meals <180 mg/dL all other times of the day. Blood CAPILLARY BLOOD / Unknown 10/04/2024 3:53 AM EST 10/04/2024 3:53 AM EST Hayley Torres MD POINT OF CARE TEST O RDERABLES Performing Organization Address City/[facility]/ZIP Co de Phone Number [facility] [place] [address] * (ABNORMAL) CBC (with Diff) (10/04/2024 12:08 AM EST) White Blood Cell 12.58(H) 4.00 - 9.50 x10(3)/mc L 10/04/2024 12:51 AM [facility] Red Blood Cell 3.28(L) 4.58 - 5.54 x10(6)/mc L 10/04/2024 12:51 AM [facility] Hemoglobin 9.4(L) 13.7 - 16.5 g/dL 10/04/2024 12:51 AM [facility] Hematocrit 28.8(L) 40.5 - 48.5 % 10/04/2024 12:51 AM [facility] Mean Cell Volume 87.8 82.9 - 93.1 fL 10/04/2024 12:51 AM [facility] Mean Cell Hemoglobin 28.7 27.5 - 32.1 pg 10/04/2024 12:51 AM [facility] Mean Cell Hemoglobin Concentration 32.6 32.0 - 35.7 g/dL 10/04/2024 12:51 AM [facility] Platelet 670(H) 145 - 357 x10(3)/mc L 10/04/2024 12:51 AM [facility] Mean Platelet Volume 9.1 7.6 - 12.9 fL 10/04/2024 12:51 AM [facility] RDW Standard Deviation 44.8 36.0 - 45.0 fL 10/04/2024 12:51 AM [facility] RDW coefficient of variation 13.9(H) 11.4 - 13.8 % 10/04/2024 12:51 AM [facility] NRBC% auto 0.0 % 10/04/2024 12:51 AM [facility] NRBC Absolute <0.01 <0.01 x10(3)/mc L 10/04/2024 12:51 AM [facility] Neutrophil % 60.3 % 10/04/2024 12:51 AM [facility] Neutrophil Absolute (ANC) - Automated 7.57(H) 1.70 - 6.10 x10(3)/mc L 10/04/2024 12:51 AM [facility] Lymph % 27.4 % 10/04/2024 12:51 AM [facility] Lymph Absolute 3.45(H) 0.90 - 3.20 x10(3)/mc L 10/04/2024 12:51 AM [facility] Monocyte % 5.4 % 10/04/2024 12:51 AM [facility] Monocyte Absolute 0.68 0.30 - 0.90 x10(3)/mc L 10/04/2024 12:51 AM [facility] Eos % 1.5 % 10/04/2024 12:51 AM [facility] Eos Absolute 0.19 0.00 - 0.40 x10(3)/mc L 10/04/2024 12:51 AM [facility] Basophil % 0.6 % 10/04/2024 12:51 AM [facility] Baso Absolute 0.08 0.00 - 0.10 x10(3)/mc L 10/04/2024 12:51 AM [facility] Immature Gran % 4.8 % 12:51 AM [facility] Immature Gran Absolute 0.61(H) 0.00 - 0.04 x10(3)/mc L 10/04/2024 12:51 AM [facility] Blood VENOUS BLOOD SPECIMEN / Unknown Venipuncture / Unknown 10/04/2024 12:08 AM EST 10/04/2024 12:15 AM EST Hayley Torres MD HEMATOLOGY ORDERABLE S [facility] [place] [address] * (ABNORMAL) Basic Metabolic Panel (10/04/2024 12:08 AM EST) Glucose 135 65 - 199 mg/dL 10/04/2024 12:53 AM [facility] Comment:Glucose Concentratio n >=200 mg/dL plus symptoms is consistent with Diabetes Mellitus. Blood Urea Nitrogen 19 10 - 20 mg/dL 10/04/2024 12:53 AM [facility] Creatinine 0.56(L) 0.80 - 1.50 mg/dL 10/04/2024 12:53 AM [facility] Sodium 138 135 - 145 mMol/L 10/04/2024 12:53 AM [facility] Potassium 4.4 3.5 - 5.0 mMol/L 10/04/2024 12:53 AM [facility] Chloride 105 98 - 107 mMol/L 10/04/2024 12:53 AM [facility] Carbon Dioxide 24 22 - 31 mMol/L 10/04/2024 12:53 AM [facility] Anion Gap 9 5 - 15 mMol/L 10/04/2024 12:53 AM [facility] Calcium 8.7 8.5 - 10.5 mg/dL 10/04/2024 12:53 AM [facility] Est Glomerular Filtration Rate - Male 120 mL/min/1. 73 m?? 10/04/2024 12:53 AM [facility] [...] AM EST Hayley Torres MD CHEMISTRY ORDERABLES [facility] [place] [address] * Phosphorus (10/04/2024 12:08 AM EST) Phosphorus 3.7 2.5 - 4.5 mg/dL 10/04/2024 12:53 AM EST [facility] Blood VENOUS BLOOD SPECIMEN / Unknown Venipuncture / Unknown 10/04/2024 12:08 AM EST 10/04/2024 12:15 AM EST Hayley Torres MD CHEMISTRY ORDERABLES Performing Organization Address City/[facility]/ZIP Co de Phone Number [facility] [place] [address] * Magnesium (10/04/2024 12:08 AM EST) Magnesium 0.89 0.69 - 1.07 mMol/L 10/04/2024 12:53 AM EST [facility] Blood VENOUS BLOOD SPECIMEN / Unknown Venipuncture / Unknown 10/04/2024 12:08 AM EST 10/04/2024 12:15 AM EST Hayley Torres MD CHEMISTRY ORDERABLES [facility] [place] [address] * POC, GLUCOSE (10/04/2024 12:01 AM EST) Glucometer, POC 132 65 - 199 mg/dL 10/04/2024 12:02 AM EST [facility] Comment:Supplemental ranges: <140 mg/dL before meals <180 mg/dL all other times of the day. Blood CAPILLARY BLOOD / Unknown 10/04/2024 12:01 AM EST 10/04/2024 12:02 AM EST Hayley Torres MD POINT OF CARE TEST O GILDA Performing Organization Address [facility] Co de Phone Number [facility] [place] [address] * POC, GLUCOSE (10/03/2024 7:56 PM EST) Glucometer, POC 123 65 - 199 mg/dL 10/03/2024 7:56 PM EST [facility] Comment:Supplemental ranges: <140 mg/dL before meals <180 mg/dL all other times of the day. Blood CAPILLARY BLOOD / Unknown 10/03/2024 7:56 PM EST 10/03/2024 7:57 PM EST Hayley Torres MD POINT OF CARE TEST O GILDA Performing Organization Address [facility] Co de Phone Number [facility] [place] [address] * POC, GLUCOSE (10/03/2024 5:29 PM EST) Glucometer, POC 182 65 - 199 mg/dL 10/03/2024 5:30 PM EST [facility] Comment:Supplemental ranges: <140 mg/dL before meals <180 mg/dL all other times of the day. Blood CAPILLARY BLOOD / Unknown 10/03/2024 5:29 PM EST 10/03/2024 5:30 PM EST Hayley Torres MD POINT OF CARE TEST O GILDA Performing Organization Address City/[facility] Co de Phone Number [facility] [place] [address] * POC, GLUCOSE (10/03/2024 12:54 PM EST) Glucometer, POC 128 65 - 199 mg/dL 10/03/2024 12:54 PM EST [facility] Comment:Supplemental ranges: <140 mg/dL before meals <180 mg/dL all other times of the day. Blood CAPILLARY BLOOD / Unknown 10/03/2024 12:54 PM EST 10/03/2024 12:54 PM EST Hayley Torres MD POINT OF CARE TEST O GILDA [facility] [place] [address] * POC, GLUCOSE (10/03/2024 7:59 AM EST) Glucometer, POC 115 65 - 199 mg/dL 10/03/2024 7:59 AM EST [facility] Comment:Supplemental ranges: <140 mg/dL before meals <180 mg/dL all other times of the day. Blood CAPILLARY BLOOD / Unknown 10/03/2024 7:59 AM EST 10/03/2024 7:59 AM EST Hayley Torres MD POINT OF CARE TEST O GILDA Performing Organization Address City/[facility]/ZIP Co de Phone Number [facility] [place] [address] * POC, GLUCOSE (10/03/2024 5:32 AM EST) Glucometer, POC 119 65 - 199 mg/dL 10/03/2024 5:32 AM EST [facility] Comment:Supplemental ranges: <140 mg/dL before meals <180 mg/dL all other times of the day. Blood CAPILLARY BLOOD / Unknown 10/03/2024 5:32 AM EST 10/03/2024 5:32 AM EST Hayley Torres MD POINT OF CARE TEST O GILDA [facility] [place] [address] * POC, GLUCOSE (10/03/2024 4:16 AM EST) Glucometer, POC 152 65 - 199 mg/dL 10/03/2024 4:17 AM EST [facility] Comment:Supplemental ranges: <140 mg/dL before meals <180 mg/dL all other times of the day. Blood CAPILLARY BLOOD / Unknown 10/03/2024 4:16 AM EST 10/03/2024 4:17 AM EST Hayley Torres MD POINT OF CARE TEST O GILDA [facility] [place] [address] * (ABNORMAL) POC, GLUCOSE (10/03/2024 2:02 AM EST) Glucometer, POC 225(H) 65 - 199 mg/dL 10/03/2024 2:02 AM EST [facility] Comment:Supplemental ranges: <140 mg/dL before meals <180 mg/dL all other times of the day. Blood CAPILLARY BLOOD / Unknown 10/03/2024 2:02 AM EST 10/03/2024 2:02 AM EST Hayley Torres MD POINT OF CARE TEST O GILDA Performing Organization Address City/[facility]/ZIP Co de Phone Number [facility] [place] [address] * (ABNORMAL) CBC (with Diff) (10/03/2024 12:27 AM EST) Pathologist [facility] White Blood Cell 15.33(H) 4.00 - 9.50 x10(3)/mc L 10/03/2024 12:51 AM EST [facility] Red Blood Cell 3.59(L) 4.58 - 5.54 x10(6)/mc L 10/03/2024 12:51 AM EST [facility] Hemoglobin 10.4(L) 13.7 - 16.5 g/dL 10/03/2024 12:51 AM EST [facility] Hematocrit 31.2(L) 40.5 - 48.5 % 10/03/2024 12:51 AM [facility] Mean Cell Volume 86.9 82.9 - 93.1 fL 10/03/2024 12:51 AM [facility] Mean Cell Hemoglobin 29.0 27.5 - 32.1 pg 10/03/2024 12:51 AM [facility] Mean Cell Hemoglobin Concentration 33.3 32.0 - 35.7 g/dL 10/03/2024 12:51 AM [facility] Platelet 693(H) 145 - 357 x10(3)/mc L 10/03/2024 12:51 AM [facility] Mean Platelet Volume 9.2 7.6 - 12.9 fL 10/03/2024 12:51 AM [facility] RDW Standard Deviation 42.4 36.0 - 45.0 fL 10/03/2024 12:51 AM [facility] RDW coefficient of variation 13.6 11.4 - 13.8 % 10/03/2024 12:51 AM [facility] NRBC% auto 0.0 % 10/03/2024 12:51 AM [facility] NRBC Absolute <0.01 <0.01 x10(3)/mc L 10/03/2024 12:51 AM [facility] Neutrophil % 77.1 % 10/03/2024 12:51 AM [facility] Neutrophil Absolute (ANC) - Automated 11.83(H) 1.70 - 6.10 x10(3)/mc L 10/03/2024 12:51 AM [facility] Lymph % 13.4 % 10/03/2024 12:51 AM [facility] Lymph Absolute 2.05 0.90 - 3.20 x10(3)/mc L 10/03/2024 12:51 AM [facility] Monocyte % 2.9 % 10/03/2024 12:51 AM [facility] Monocyte Absolute 0.45 0.30 - 0.90 x10(3)/mc L 10/03/2024 12:51 AM EST [facility] Eos % 0.5 % 10/03/2024 12:51 AM EST [facility] Eos Absolute 0.07 0.00 - 0.40 x10(3)/mc L 10/03/2024 12:51 AM EST [facility] Basophil % 0.4 % 10/03/2024 12:51 AM [facility] Baso Absolute 0.06 0.00 - 0.10 x10(3)/mc L 10/03/2024 12:51 AM [facility] Immature Gran % 5.7 % 12:51 AM [facility] Immature Gran Absolute 0.87(H) 0.00 - 0.04 x10(3)/mc L 10/03/2024 12:51 AM [facility] Blood VENOUS BLOOD SPECIMEN / Unknown Venipuncture / Unknown 10/03/2024 12:27 AM EST 10/03/2024 12:47 AM EST Hayley Torres MD HEMATOLOGY ORDERABLE S [facility] [place] [address] * (ABNORMAL) Basic Metabolic Panel (10/03/2024 12:27 AM EST) Glucose 208(H) 65 - 199 mg/dL 10/03/2024 1:14 AM [facility] Comment:Glucose Concentratio n >=200 mg/dL plus symptoms is consistent with Diabetes Mellitus. Blood Urea Nitrogen 15 10 - 20 mg/dL 10/03/2024 1:14 AM [facility] Creatinine 0.51(L) 0.80 - 1.50 mg/dL 10/03/2024 1:14 AM [facility] Sodium 136 135 - 145 mMol/L 10/03/2024 1:14 AM [facility] Potassium 4.1 3.5 - 5.0 mMol/L 10/03/2024 1:14 AM [facility] Chloride 103 98 - 107 mMol/L 10/03/2024 1:14 AM [facility] Carbon Dioxide 20(L) 22 - 31 mMol/L 10/03/2024 1:14 AM [facility] Anion Gap 13 5 - 15 mMol/L 10/03/2024 1:14 AM [facility] Calcium 8.4(L) 8.5 - 10.5 mg/dL 10/03/2024 1:14 AM [facility] Est Glomerular Filtration Rate - Male 124 mL/min/1. 73 m?? 10/03/2024 1:14 AM [facility] [...] AM EST Hayley Torres MD CHEMISTRY ORDERABLES [facility] [place] [address] * Phosphorus (10/03/2024 12:27 AM EST) Phosphorus 3.5 2.5 - 4.5 mg/dL 10/03/2024 1:14 AM [facility] Blood VENOUS BLOOD SPECIMEN / Unknown Venipuncture / Unknown 10/03/2024 12:27 AM EST 10/03/2024 12:47 AM EST Hayley Torres MD CHEMISTRY ORDERABLES Performing Organization Address City/[facility]/ZIP Co de Phone Number [facility] [place] [address] * Magnesium (10/03/2024 12:27 AM EST) Magnesium 0.83 0.69 - 1.07 mMol/L 10/03/2024 1:14 AM EST [facility] Blood VENOUS BLOOD SPECIMEN / Unknown Venipuncture / Unknown 10/03/2024 12:27 AM EST 10/03/2024 12:47 AM EST Hayley Torres MD CHEMISTRY ORDERABLES Performing Organization Address [facility] Co de Phone Number [facility] [place] [address] * (ABNORMAL) POC, GLUCOSE (10/03/2024 12:13 AM EST) Glucometer, POC 255(H) 65 - 199 mg/dL 10/03/2024 12:14 AM EST [facility] Comment:Supplemental ranges: <140 mg/dL before meals <180 mg/dL all other times of the day. Blood CAPILLARY BLOOD / Unknown 10/03/2024 12:13 AM EST 10/03/2024 12:14 AM EST Hayley Torres MD POINT OF CARE TEST O RDERABLES [facility] [place] [address] * POC, GLUCOSE (10/02/2024 8:17 PM EST) Glucometer, POC 177 65 - 199 mg/dL 10/02/2024 8:17 PM EST [facility] Comment:Supplemental ranges: <140 mg/dL before meals <180 mg/dL all other times of the day. Blood CAPILLARY BLOOD / Unknown 10/02/2024 8:17 PM EST 10/02/2024 8:17 PM EST Hayley Torres MD POINT OF CARE TEST O GILDA Performing Organization Address City/[facility]/ZIP Co de Phone Number [facility] [place] [address] * POC, GLUCOSE (10/02/2024 6:22 PM EST) Glucometer, POC 172 65 - 199 mg/dL 10/02/2024 6:22 PM EST [facility] Comment:Supplemental ranges: <140 mg/dL before meals <180 mg/dL all other times of the day. Blood CAPILLARY BLOOD / Unknown 10/02/2024 6:22 PM EST 10/02/2024 6:22 PM EST Hayley Torres MD POINT OF CARE TEST O GILDA Performing Organization Address [facility] Co de Phone Number [facility] [place] [address] * POC, GLUCOSE (10/02/2024 5:01 PM EST) Glucometer, POC 104 65 - 199 mg/dL 10/02/2024 5:01 PM EST [facility] Comment:Supplemental ranges: <140 mg/dL before meals <180 mg/dL all other times of the day. Blood CAPILLARY BLOOD / Unknown 10/02/2024 5:01 PM EST 10/02/2024 5:01 PM EST Hayley Torres MD POINT OF CARE TEST O GILDA Performing Organization Address City/[facility]/ZIP Co de Phone Number [facility] [place] [address] * POC, GLUCOSE (10/02/2024 3:05 PM EST) Glucometer, POC 113 65 - 199 mg/dL 10/02/2024 3:06 PM EST [facility] Comment:Supplemental ranges: <140 mg/dL before meals <180 mg/dL all other times of the day. Blood CAPILLARY BLOOD / Unknown 10/02/2024 3:05 PM EST 10/02/2024 3:06 PM EST Hayley Torres MD POINT OF CARE TEST O GILDA Performing Organization Address City/[facility]/ZIP Co de Phone Number [facility] [place] [address] * POC, GLUCOSE (10/02/2024 11:12 AM EST) Glucometer, POC 146 65 - 199 mg/dL 10/02/2024 11:12 AM EST [facility] Comment:Supplemental ranges: <140 mg/dL before meals <180 mg/dL all other times of the day. Blood CAPILLARY BLOOD / Unknown 10/02/2024 11:12 AM EST 10/02/2024 11:12 AM EST Hayley Torres MD POINT OF CARE TEST O GILDA Performing Organization Address City/[facility] Co de Phone Number [facility] [place] [address] * POC, GLUCOSE (10/02/2024 8:12 AM EST) Glucometer, POC 131 65 - 199 mg/dL 10/02/2024 8:12 AM EST [facility] Comment:Supplemental ranges: <140 mg/dL before meals <180 mg/dL all other times of the day. Blood CAPILLARY BLOOD / Unknown 10/02/2024 8:12 AM EST 10/02/2024 8:12 AM EST Hayley Torres MD POINT OF CARE TEST O GILDA [facility] [place] [address] * POC, GLUCOSE (10/02/2024 4:19 AM EST) Glucometer, POC 131 65 - 199 mg/dL 10/02/2024 4:19 AM EST [facility] Comment:Supplemental ranges: <140 mg/dL before meals <180 mg/dL all other times of the day. Blood CAPILLARY BLOOD / Unknown 10/02/2024 4:19 AM EST 10/02/2024 4:19 AM EST Hayley Torres MD POINT OF CARE TEST O RDERABLES Performing Organization Address City/[facility] Co de Phone Number [facility] [place] [address] * Phosphorus (10/02/2024 12:41 AM EST) Phosphorus 4.1 2.5 - 4.5 mg/dL 10/02/2024 1:21 AM EST [facility] Blood VENOUS BLOOD SPECIMEN / Unknown Venipuncture / Unknown 10/02/2024 12:41 AM EST 10/02/2024 12:45 AM EST Hayley Torres MD CHEMISTRY ORDERABLES Performing Organization Address [place] [facility] de Phone Number [facility] [place] [address] * Magnesium (10/02/2024 12:41 AM EST) Magnesium 0.85 0.69 - 1.07 mMol/L 10/02/2024 1:21 AM EST [facility] Blood VENOUS BLOOD SPECIMEN / Unknown Venipuncture / Unknown 10/02/2024 12:41 AM EST 10/02/2024 12:45 AM EST Hayley Torres MD CHEMISTRY ORDERABLES Performing Organization Address [facility] Co de Phone Number [facility] [place] [address] * (ABNORMAL) Basic Metabolic Panel (10/02/2024 12:41 AM EST) Glucose 113 65 - 199 mg/dL 10/02/2024 1:21 AM [facility] Comment:Glucose Concentratio n >=200 mg/dL plus symptoms is consistent with Diabetes Mellitus. Blood Urea Nitrogen 11 10 - 20 mg/dL 10/02/2024 1:21 AM [facility] Creatinine 0.49(L) 0.80 - 1.50 mg/dL 10/02/2024 1:21 AM [facility] Sodium 138 135 - 145 mMol/L 10/02/2024 1:21 AM [facility] Potassium 3.9 3.5 - 5.0 mMol/L 10/02/2024 1:21 AM [facility] Chloride 105 98 - 107 mMol/L 10/02/2024 1:21 AM [facility] Carbon Dioxide 23 22 - 31 mMol/L 10/02/2024 1:21 AM [facility] Anion Gap 10 5 - 15 mMol/L 10/02/2024 1:21 AM [facility] Calcium 8.2(L) 8.5 - 10.5 mg/dL 10/02/2024 1:21 AM [facility] Est Glomerular Filtration Rate - Male 125 mL/min/1. 73 m?? 10/02/2024 1:21 AM [facility] [...] AM EST Hayley Torres MD CHEMISTRY ORDERABLES [facility] [place] [address] * (ABNORMAL) CBC (with Diff) (10/02/2024 12:41 AM EST) White Blood Cell 10.93(H) 4.00 - 9.50 x10(3)/mc L 10/02/2024 1:04 AM [facility] Red Blood Cell 3.30(L) 4.58 - 5.54 x10(6)/mc L 10/02/2024 1:04 AM [facility] Hemoglobin 9.6(L) 13.7 - 16.5 g/dL 10/02/2024 1:04 AM [facility] Hematocrit 28.6(L) 40.5 - 48.5 % 10/02/2024 1:04 AM [facility] Mean Cell Volume 86.7 82.9 - 93.1 fL 10/02/2024 1:04 AM [facility] Mean Cell Hemoglobin 29.1 27.5 - 32.1 pg 10/02/2024 1:04 AM [facility] Mean Cell Hemoglobin Concentration 33.6 32.0 - 35.7 g/dL 10/02/2024 1:04 AM [facility] Platelet 546(H) 145 - 357 x10(3)/mc L 10/02/2024 1:04 AM [facility] Mean Platelet Volume 9.0 7.6 - 12.9 fL 10/02/2024 1:04 AM [facility] RDW Standard Deviation 42.7 36.0 - 45.0 fL 10/02/2024 1:04 AM [facility] RDW coefficient of variation 13.3 11.4 - 13.8 % 10/02/2024 1:04 AM [facility] NRBC% auto 0.0 % 10/02/2024 1:04 AM [facility] NRBC Absolute <0.01 <0.01 x10(3)/mc L 10/02/2024 1:04 AM [facility] Neutrophil % 58.4 % 10/02/2024 1:04 AM [facility] Neutrophil Absolute (ANC) - Automated 6.38(H) 1.70 - 6.10 x10(3)/mc L 10/02/2024 1:04 AM [facility] Lymph % 23.9 % 10/02/2024 1:04 AM [facility] Lymph Absolute 2.61 0.90 - 3.20 x10(3)/mc L 10/02/2024 1:04 AM [facility] Monocyte % 5.6 % 10/02/2024 1:04 AM [facility] Monocyte Absolute 0.61 0.30 - 0.90 x10(3)/mc L 10/02/2024 1:04 AM [facility] Eos % 1.6 % 10/02/2024 1:04 AM [facility] Eos Absolute 0.18 0.00 - 0.40 x10(3)/mc L 10/02/2024 1:04 AM [facility] Basophil % 0.8 % 10/02/2024 1:04 AM [facility] Baso Absolute 0.09 0.00 - 0.10 x10(3)/mc L 10/02/2024 1:04 AM [facility] Immature Gran % 9.7 % 1:04 AM [facility] Immature Gran Absolute 1.06(H) 0.00 - 0.04 x10(3)/mc L 10/02/2024 1:04 AM [facility] Blood VENOUS BLOOD SPECIMEN / Unknown Venipuncture / Unknown 10/02/2024 12:41 AM EST 10/02/2024 12:45 AM EST Hayley Torres MD HEMATOLOGY ORDERABLE S [facility] [place] [address] * POC, GLUCOSE (10/02/2024 12:40 AM EST) Glucometer, POC 116 65 - 199 mg/dL 10/02/2024 12:41 AM EST [facility] Comment:Supplemental ranges: <140 mg/dL before meals <180 mg/dL all other times of the day. Blood CAPILLARY BLOOD / Unknown 10/02/2024 12:40 AM EST 10/02/2024 12:41 AM EST Hayley Torres MD POINT OF CARE TEST O GILDA Performing Organization Address [facility] Co de Phone Number [facility] [place] [address] * POC, GLUCOSE (10/01/2024 8:11 PM EST) Glucometer, POC 123 65 - 199 mg/dL 10/01/2024 8:11 PM EST [facility] Comment:Supplemental ranges: <140 mg/dL before meals <180 mg/dL all other times of the day. Blood CAPILLARY BLOOD / Unknown 10/01/2024 8:11 PM EST 10/01/2024 8:11 PM EST Hayley Torres MD POINT OF CARE TEST O GILDA Performing Organization Address City/[facility] Co de Phone Number [facility] [place] [address] * POC, GLUCOSE (10/01/2024 6:00 PM EST) Glucometer, POC 112 65 - 199 mg/dL 10/01/2024 6:00 PM EST [facility] Comment:Supplemental ranges: <140 mg/dL before meals <180 mg/dL all other times of the day. Blood CAPILLARY BLOOD / Unknown 10/01/2024 6:00 PM EST 10/01/2024 6:00 PM EST Hayley Torres MD POINT OF CARE TEST O RDERAHERNANDEZ Performing Organization Address City/[facility]/ZIP Co de Phone Number [facility] [place] [address] * POC, GLUCOSE (10/01/2024 3:53 PM EST) Glucometer, POC 97 65 - 199 mg/dL 10/01/2024 3:53 PM EST [facility] Comment:Supplemental ranges: <140 mg/dL before meals <180 mg/dL all other times of the day. Blood CAPILLARY BLOOD / Unknown 10/01/2024 3:53 PM EST 10/01/2024 3:53 PM EST Hayley Torres MD POINT OF CARE TEST O GILDA Performing Organization Address [facility] Co de Phone Number [facility] [place] [address] * POC, GLUCOSE (10/01/2024 2:25 PM EST) Glucometer, POC 117 65 - 199 mg/dL 10/01/2024 2:25 PM EST [facility] Comment:Supplemental ranges: <140 mg/dL before meals <180 mg/dL all other times of the day. Blood CAPILLARY BLOOD / Unknown 10/01/2024 2:25 PM EST 10/01/2024 2:25 PM EST Hayley Torres MD POINT OF CARE TEST O GILDA Performing Organization Address City/[facility]/ZIP Co de Phone Number [facility] [place] [address] * POC, GLUCOSE (10/01/2024 11:43 AM EST) Glucometer, POC 174 65 - 199 mg/dL 10/01/2024 11:43 AM EST [facility] Comment:Supplemental ranges: <140 mg/dL before meals <180 mg/dL all other times of the day. Blood CAPILLARY BLOOD / Unknown 10/01/2024 11:43 AM EST 10/01/2024 11:43 AM EST Hayley Torres MD POINT OF CARE TEST O GILDA Performing Organization Address [facility] Co de Phone Number [facility] [place] [address] * POC, GLUCOSE (10/01/2024 9:43 AM EST) Glucometer, POC 191 65 - 199 mg/dL 10/01/2024 9:43 AM EST [facility] Comment:Supplemental ranges: <140 mg/dL before meals <180 mg/dL all other times of the day. Blood CAPILLARY BLOOD / Unknown 10/01/2024 9:43 AM EST 10/01/2024 9:43 AM EST Hayley Torres MD POINT OF CARE TEST O GILDA Performing Organization Address [facility] Co de Phone Number [facility] [place] [address] * POC, GLUCOSE (10/01/2024 7:48 AM EST) Glucometer, POC 151 65 - 199 mg/dL 10/01/2024 7:48 AM EST [facility] Comment:Supplemental ranges: <140 mg/dL before meals <180 mg/dL all other times of the day. Blood CAPILLARY BLOOD / Unknown 10/01/2024 7:48 AM EST 10/01/2024 7:48 AM EST Hayley Torres MD POINT OF CARE TEST O GILDA Performing Organization Address City/[facility] Co de Phone Number [facility] [place] [address] * POC, GLUCOSE (10/01/2024 4:25 AM EST) Glucometer, POC 133 65 - 199 mg/dL 10/01/2024 4:26 AM EST [facility] Comment:Supplemental ranges: <140 mg/dL before meals <180 mg/dL all other times of the day. Blood CAPILLARY BLOOD / Unknown 10/01/2024 4:25 AM EST 10/01/2024 4:26 AM EST Hayley Torres MD POINT OF CARE TEST O RDERABLES Performing Organization Address City/[facility]/ZIP Co de Phone Number [facility] [place] [address] * Phosphorus (10/01/2024 2:02 AM EST) Pathologist [facility] Phosphorus 3.9 2.5 - 4.5 mg/dL 10/01/2024 7:16 AM EST [facility] Blood VENOUS BLOOD SPECIMEN / Unknown Venipuncture / Unknown 10/01/2024 2:02 AM EST 10/01/2024 2:10 AM EST Hayley Torres MD CHEMISTRY ORDERABLES Performing Organization Address [facility] Co de Phone Number [facility] [place] [address] * (ABNORMAL) Scan, Peripheral Blood (10/01/2024 2:02 AM EST) Pathologist [facility] RBC Morphology Abnormal 10/01/2024 2:55 AM EST [facility] Platelet Estimate Increased(A) Normal 10/01 2:55 AM EST [facility] Polychromasia Present 10/01/2024 2:55 AM EST [facility] Platelet Clumps Present(A) (none) 2:55 AM EST [facility] Blood VENOUS BLOOD SPECIMEN / Unknown Venipuncture / Unknown 10/01/2024 2:02 AM EST 10/01/2024 2:10 AM EST Hayley Torres MD HEMATOLOGY ORDERABLE S Performing Organization Address City/[facility]/ZIP Co de Phone Number [facility] [place] [address] * Magnesium (10/01/2024 2:02 AM EST) Magnesium 0.79 0.69 - 1.07 mMol/L 10/01/2024 2:41 AM EST [facility] Blood VENOUS BLOOD SPECIMEN / Unknown Venipuncture / Unknown 10/01/2024 2:02 AM EST 10/01/2024 2:10 AM EST Hayley Torres MD CHEMISTRY ORDERABLES [facility] [address] [place] [address] * (ABNORMAL) Basic Metabolic Panel (10/01/2024 2:02 AM EST) Pathologist [facility] Glucose 122 65 - 199 mg/dL 10/01/2024 2:41 AM EST [facility] Comment:Glucose Concentratio n >=200 mg/dL plus symptoms is consistent with Diabetes Mellitus. Blood Urea Nitrogen 10 10 - 20 mg/dL 10/01/2024 2:41 AM [facility] Creatinine 0.47(L) 0.80 - 1.50 mg/dL 10/01/2024 2:41 AM EST [facility] Sodium 138 135 - 145 mMol/L 10/01/2024 2:41 AM EST [facility] Potassium 3.9 3.5 - 5.0 mMol/L 10/01/2024 2:41 AM [facility] Chloride 105 98 - 107 mMol/L 10/01/2024 2:41 AM [facility] Carbon Dioxide 24 22 - 31 mMol/L 10/01/2024 2:41 AM [facility] Anion Gap 9 5 - 15 mMol/L 10/01/2024 2:41 AM [facility] Calcium 8.1(L) 8.5 - 10.5 mg/dL 10/01/2024 2:41 AM [facility] Est Glomerular Filtration Rate - Male 127 mL/min/1. 73 m?? 10/01/2024 2:41 AM [facility] [...] AM EST Hayley Torres MD CHEMISTRY ORDERABLES [facility] [place] [address] * (ABNORMAL) CBC (with Diff) (10/01/2024 2:02 AM EST) White Blood Cell 10.15(H) 4.00 - 9.50 x10(3)/mc L 10/01/2024 2:55 AM [facility] Red Blood Cell 3.14(L) 4.58 - 5.54 x10(6)/mc L 10/01/2024 2:55 AM [facility] Hemoglobin 9.1(L) 13.7 - 16.5 g/dL 10/01/2024 2:55 AM [facility] Hematocrit 26.9(L) 40.5 - 48.5 % 10/01/2024 2:55 AM [facility] Mean Cell Volume 85.7 82.9 - 93.1 fL 10/01/2024 2:55 AM [facility] Mean Cell Hemoglobin 29.0 27.5 - 32.1 pg 10/01/2024 2:55 AM [facility] Mean Cell Hemoglobin Concentration 33.8 32.0 - 35.7 g/dL 10/01/2024 2:55 AM [facility] Platelet 444(H) 145 - 357 x10(3)/mc L 10/01/2024 2:55 AM [facility] Mean Platelet Volume 8.9 7.6 - 12.9 fL 10/01/2024 2:55 AM [facility] RDW Standard Deviation 41.2 36.0 - 45.0 fL 10/01/2024 2:55 AM [facility] RDW coefficient of variation 13.2 11.4 - 13.8 % 10/01/2024 2:55 AM [facility] NRBC% auto 0.0 % 10/01/2024 2:55 AM [facility] NRBC Absolute <0.01 <0.01 x10(3)/mc L 10/01/2024 2:55 AM [facility] Neutrophil % 59.5 % 10/01/2024 2:55 AM [facility] Comment:This is an appended report. These results have been appended to a previously preliminary verified report. Neutrophil Absolute (ANC) - Automated 6.05 1.70 - 6.10 x10(3)/mc L 10/01/2024 2:55 AM [facility] Comment:This is an appended report. These results have been appended to a previously preliminary verified report. Lymph % 22.3 % 10/01/2024 2:55 AM [facility] Comment:This is an appended report. These results have been appended to a previously preliminary verified report. Lymph Absolute 2.26 0.90 - 3.20 x10(3)/mc L 10/01/2024 2:55 AM [facility] Comment:This is an appended report. These results have been appended to a previously preliminary verified report. Monocyte % 7.4 % 10/01/2024 2:55 AM [facility] Comment:This is an appended report. These results have been appended to a previously preliminary verified report. Monocyte Absolute 0.75 0.30 - 0.90 x10(3)/mc L 10/01/2024 2:55 AM EST [facility] Comment:This is an appended report. These results have been appended to a previously preliminary verified report. Eos % 1.8 % 10/01/2024 2:55 AM [facility] Comment:This is an appended report. These results have been appended to a previously preliminary verified report. Eos Absolute 0.18 0.00 - 0.40 x10(3)/mc L 10/01/2024 2:55 AM EST [facility] Comment:This is an appended report. These results have been appended to a previously preliminary verified report. Basophil % 0.6 % 10/01/2024 2:55 AM [facility] Comment:This is an appended report. These results have been appended to a previously preliminary verified report. Baso Absolute 0.06 0.00 - 0.10 x10(3)/mc L 10/01/2024 2:55 AM EST [facility] Comment:This is an appended report. These results have been appended to a previously preliminary verified report. Immature Gran % 8.4 % 2:55 AM EST [facility] Comment:This is an appended report. These results have been appended to a previously preliminary verified report. Immature Gran Absolute 0.85(H) 0.00 - 0.04 x10(3)/mc L 10/01/2024 2:55 AM EST [facility] Comment:This is an appended report. These results have been appended to a previously preliminary verified report. Blood VENOUS BLOOD SPECIMEN / Unknown Venipuncture / Unknown 10/01/2024 2:02 AM EST 10/01/2024 2:10 AM EST Hayley Torres MD HEMATOLOGY ORDERABLE S [facility] [place] [address] * POC, GLUCOSE (10/01/2024 12:32 AM EST) Glucometer, POC 179 65 - 199 mg/dL 10/01/2024 12:32 AM EST [facility] Comment:Supplemental ranges: <140 mg/dL before meals <180 mg/dL all other times of the day. Blood CAPILLARY BLOOD / Unknown 10/01/2024 12:32 AM EST 10/01/2024 12:32 AM EST Hayley Torres MD POINT OF CARE TEST O GILDA Performing Organization Address City/[facility] Co de Phone Number [facility] [place] [address] * POC, GLUCOSE (09/30/2024 7:37 PM EST) Glucometer, POC 140 65 - 199 mg/dL 09/30/2024 7:38 PM EST [facility] Comment:Supplemental ranges: <140 mg/dL before meals <180 mg/dL all other times of the day. Blood CAPILLARY BLOOD / Unknown 09/30/2024 7:37 PM EST 09/30/2024 7:38 PM EST Hayley Torres MD POINT OF CARE TEST O GILDA Performing Organization Address [facility]/ZIP Co de Phone Number [facility] [place] [address] * POC, GLUCOSE (09/30/2024 4:29 PM EST) Glucometer, POC 126 65 - 199 mg/dL 09/30/2024 4:30 PM EST [facility] Comment:Supplemental ranges: <140 mg/dL before meals <180 mg/dL all other times of the day. Blood CAPILLARY BLOOD / Unknown 09/30/2024 4:29 PM EST 09/30/2024 4:30 PM EST Hayley Torres MD POINT OF CARE TEST O GILDA [facility] [place] [address] * POC, GLUCOSE (09/30/2024 12:16 PM EST) Glucometer, POC 107 65 - 199 mg/dL 09/30/2024 12:16 PM EST [facility] Comment:Supplemental ranges: <140 mg/dL before meals <180 mg/dL all other times of the day. Blood CAPILLARY BLOOD / Unknown 09/30/2024 12:16 PM EST 09/30/2024 12:16 PM EST Hayley Torres MD POINT OF CARE TEST O RDERAHERNANDEZ Performing Organization Address [facility]/ZIP Co de Phone Number [facility] [place] [address] * POC, GLUCOSE (09/30/2024 7:58 AM EST) Glucometer, POC 92 65 - 199 mg/dL 09/30/2024 7:58 AM EST [facility] Comment:Supplemental ranges: <140 mg/dL before meals <180 mg/dL all other times of the day. Blood CAPILLARY BLOOD / Unknown 09/30/2024 7:58 AM EST 09/30/2024 7:58 AM EST Hayley Torres MD POINT OF CARE TEST O RDTYESHA Performing Organization Address City/[facility]/ZIP Co de Phone Number [facility] [place] [address] * Potassium (09/30/2024 6:27 AM EST) Potassium 3.9 3.5 - 5.0 mMol/L 09/30/2024 7:10 AM EST [facility] Blood VENOUS BLOOD SPECIMEN / Unknown Venipuncture / Unknown 09/30/2024 6:27 AM EST 09/30/2024 6:35 AM EST Hayley Torres MD CHEMISTRY ORDERABLES Performing Organization Address City/State/[facility] Co de Phone Number [facility] [place] [address] * Vancomycin, trough (09/30/2024 6:27 AM EST) Vancomycin, Trough 14.1 10.0 - 20.0 mg/L 09/30/2024 7:10 AM EST [facility] Comment: Varies according to infection source. Blood VENOUS BLOOD SPECIMEN / Unknown Venipuncture / Unknown 09/30/2024 6:27 AM EST 09/30/2024 6:35 AM EST Hayley Torres MD CHEMISTRY ORDERABLES Performing Organization Address [facility] de Phone Number [facility] [place] [address] * POC, GLUCOSE (09/30/2024 3:51 AM EST) Glucometer, POC 134 65 - 199 mg/dL 09/30/2024 3:51 AM EST [facility] Comment:Supplemental ranges: <140 mg/dL before meals <180 mg/dL all other times of the day. Blood CAPILLARY BLOOD / Unknown 09/30/2024 3:51 AM EST 09/30/2024 3:51 AM EST Hayley Torres MD POINT OF CARE TEST O RDERABLES Performing Organization Address [facility] Co de Phone Number [facility] [place] [address] * Magnesium (09/29/2024 11:52 PM EST) Magnesium 0.85 0.69 - 1.07 mMol/L 09/30/2024 12:25 AM EST [facility] Blood VENOUS BLOOD SPECIMEN / Unknown Venipuncture / Unknown 09/29/2024 11:52 PM EST 09/29/2024 11:58 PM EST Hayley Torres MD CHEMISTRY ORDERABLES [facility] [place] [address] * (ABNORMAL) Basic Metabolic Panel (09/29/2024 11:52 PM EST) Glucose 133 65 - 199 mg/dL 09/30/2024 12:51 AM [facility] Comment:Glucose Concentratio n >=200 mg/dL plus symptoms is consistent with Diabetes Mellitus. Blood Urea Nitrogen 9(L) 10 - 20 mg/dL 09/30/2024 12:51 AM [facility] Creatinine 0.48(L) 0.80 - 1.50 mg/dL 09/30/2024 12:51 AM [facility] Sodium 138 135 - 145 mMol/L 09/30/2024 12:51 AM [facility] Potassium 3.4(L) 3.5 - 5.0 mMol/L 09/30/2024 12:51 AM [facility] Chloride 103 98 - 107 mMol/L 09/30/2024 12:51 AM [facility] Carbon Dioxide 24 22 - 31 mMol/L 09/30/2024 12:51 AM [facility] Anion Gap 11 5 - 15 mMol/L 09/30/2024 12:51 AM [facility] Calcium 8.1(L) 8.5 - 10.5 mg/dL 09/30/2024 12:51 AM [facility] Est Glomerular Filtration Rate - Male 126 mL/min/1. 73 m?? 09/30/2024 12:51 AM [facility] [...] PM EST Hayley Torres MD CHEMISTRY ORDERABLES [facility] [place] [address] * (ABNORMAL) CBC (with Diff) (09/29/2024 11:52 PM EST) White Blood Cell 9.54(H) 4.00 - 9.50 x10(3)/mc L 09/30/2024 12:02 AM [facility] Red Blood Cell 3.04(L) 4.58 - 5.54 x10(6)/mc L 09/30/2024 12:02 AM [facility] Hemoglobin 8.7(L) 13.7 - 16.5 g/dL 09/30/2024 12:02 AM [facility] Hematocrit 25.8(L) 40.5 - 48.5 % 09/30/2024 12:02 AM [facility] Mean Cell Volume 84.9 82.9 - 93.1 fL 09/30/2024 12:02 AM [facility] Mean Cell Hemoglobin 28.6 27.5 - 32.1 pg 09/30/2024 12:02 AM [facility] Mean Cell Hemoglobin Concentration 33.7 32.0 - 35.7 g/dL 09/30/2024 12:02 AM [facility] Platelet 411(H) 145 - 357 x10(3)/mc L 09/30/2024 12:02 AM [facility] Mean Platelet Volume 8.8 7.6 - 12.9 fL 09/30/2024 12:02 AM [facility] RDW Standard Deviation 41.4 36.0 - 45.0 fL 09/30/2024 12:02 AM [facility] RDW coefficient of variation 13.4 11.4 - 13.8 % 09/30/2024 12:02 AM [facility] NRBC% auto 0.0 % 09/30/2024 12:02 AM [facility] NRBC Absolute <0.01 <0.01 x10(3)/mc L 09/30/2024 12:02 AM [facility] Neutrophil % 64.5 % 09/30/2024 12:02 AM [facility] Neutrophil Absolute (ANC) - Automated 6.16(H) 1.70 - 6.10 x10(3)/mc L 09/30/2024 12:02 AM [facility] Lymph % 23.1 % 09/30/2024 12:02 AM [facility] Lymph Absolute 2.20 0.90 - 3.20 x10(3)/mc L 09/30/2024 12:02 AM [facility] LABORATORY Monocyte % 8.0 % 09/30/2024 12:02 AM [facility] Monocyte Absolute 0.76 0.30 - 0.90 x10(3)/mc L 09/30/2024 12:02 AM [facility] Eos % 1.5 % 09/30/2024 12:02 AM [facility] Eos Absolute 0.14 0.00 - 0.40 x10(3)/mc L 09/30/2024 12:02 AM [facility] Basophil % 0.3 % 09/30/2024 12:02 AM [facility] Baso Absolute <0.04 0.00 - 0.10 x10(3)/mc L 09/30/2024 12:02 AM [facility] Immature Gran % 2.6 % 12:02 AM [facility] Immature Gran Absolute 0.25(H) 0.00 - 0.04 x10(3)/mc L 09/30/2024 12:02 AM EST [facility] Blood VENOUS BLOOD SPECIMEN / Unknown Venipuncture / Unknown 09/29/2024 11:52 PM EST 09/29/2024 11:58 PM EST Hayley Torres MD HEMATOLOGY ORDERABLE S [facility] [place] [address] * POC, GLUCOSE (09/29/2024 11:51 PM EST) Glucometer, POC 134 65 - 199 mg/dL 09/29/2024 11:51 PM EST [facility] Comment:Supplemental ranges: <140 mg/dL before meals <180 mg/dL all other times of the day. Blood CAPILLARY BLOOD / Unknown 09/29/2024 11:51 PM EST 09/29/2024 11:51 PM EST Hayley Torres MD POINT OF CARE TEST O RDERABLES Performing Organization Address City/[facility]/ZIP Co de Phone Number [facility] [place] [address] * Blood culture (09/29/2024 9:24 PM EST) Blood Culture No growth at 120 hours 10/04/2024 11:01 PM EST [facility] Blood VENOUS BLOOD SPECIMEN / Unknown Venipuncture / Unknown 09/29/2024 9:24 PM EST 09/29/2024 9:34 PM EST Hayley Torres MD MICROBIOLOGY - BLOOD ORDERABLES [facility] [place] [address] * Blood culture (09/29/2024 9:24 PM EST) Blood Culture No growth at 120 hours 10/04/2024 11:01 PM EST [facility] Blood VENOUS BLOOD SPECIMEN / Unknown Venipuncture / Unknown 09/29/2024 9:24 PM EST 09/29/2024 9:34 PM EST Marko Dickson MD MICROBIOLOGY - BLOOD ORDERABLES Performing Organization Address [facility]/ZIP Co de Phone Number [facility] [place] [address] * (ABNORMAL) POC, GLUCOSE (09/29/2024 7:35 PM EST) Glucometer, POC 202(H) 65 - 199 mg/dL 09/29/2024 7:36 PM EST [facility] Comment:Supplemental ranges: <140 mg/dL before meals <180 mg/dL all other times of the day. Blood CAPILLARY BLOOD / Unknown 09/29/2024 7:35 PM EST 09/29/2024 7:36 PM EST Hayley Torres MD POINT OF CARE TEST O GILDA Performing Organization Address [facility] Co de Phone Number [facility] [place] [address] * POC, GLUCOSE (09/29/2024 6:48 PM EST) Glucometer, POC 161 65 - 199 mg/dL 09/29/2024 6:48 PM EST [facility] Comment:Supplemental ranges: <140 mg/dL before meals <180 mg/dL all other times of the day. Blood CAPILLARY BLOOD / Unknown 09/29/2024 6:48 PM EST 09/29/2024 6:49 PM EST Hayley Torres MD POINT OF CARE TEST O GILDA Performing Organization Address City/[facility]/ZIP Co de Phone Number [facility] [place] [address] * POC, GLUCOSE (09/29/2024 4:06 PM EST) Glucometer, POC 122 65 - 199 mg/dL 09/29/2024 4:06 PM EST [facility] Comment:Supplemental ranges: <140 mg/dL before meals <180 mg/dL all other times of the day. Blood CAPILLARY BLOOD / Unknown 09/29/2024 4:06 PM EST 09/29/2024 4:06 PM EST Hayley Torres MD POINT OF CARE TEST O RDERAHERNANDEZ Performing Organization Address City/[facility]/ZIP Co de Phone Number [facility] [place] [address] * POC, GLUCOSE (09/29/2024 11:49 AM EST) Glucometer, POC 135 65 - 199 mg/dL 09/29/2024 11:49 AM EST [facility] Comment:Supplemental ranges: <140 mg/dL before meals <180 mg/dL all other times of the day. Blood CAPILLARY BLOOD / Unknown 09/29/2024 11:49 AM EST 09/29/2024 11:50 AM EST Hayley Torres MD POINT OF CARE TEST O GILDA Performing Organization Address [facility] Co de Phone Number [facility] [place] [address] * (ABNORMAL) POC, GLUCOSE (09/29/2024 7:53 AM EST) Glucometer, POC 202(H) 65 - 199 mg/dL 09/29/2024 7:53 AM EST [facility] Comment:Supplemental ranges: <140 mg/dL before meals <180 mg/dL all other times of the day. Blood CAPILLARY BLOOD / Unknown 09/29/2024 7:53 AM EST 09/29/2024 7:53 AM EST Hayley Torres MD POINT OF CARE TEST O RDERAHERNANDEZ Performing Organization Address City/[facility]/ZIP Co de Phone Number [facility] [place] [address] * POC, GLUCOSE (09/29/2024 3:45 AM EST) Glucometer, POC 184 65 - 199 mg/dL 09/29/2024 3:46 AM EST [facility] Comment:Supplemental ranges: <140 mg/dL before meals <180 mg/dL all other times of the day. Blood CAPILLARY BLOOD / Unknown 09/29/2024 3:45 AM EST 09/29/2024 3:46 AM EST Hayley Torres MD POINT OF CARE TEST O RDERABLES Performing Organization Address [facility]/ZIP Co de Phone Number [facility] [place] [address] * (ABNORMAL) Hemoglobin A1c (09/28/2024 11:51 PM EST) [facility] Hemoglobin A1c 9.7(H) 4.3 - 5.6 % 09/29/2024 9:54 AM EST [facility] Comment: Per ADA guidelines, [...] red blood cell turnover may not be corporate representative of glycemic control. Reference Interval: 4.3 - 5.6% 5.7 - 6.4%: Consistent with prediabetes >=6.5%: Consistent with diagnosis of diabetes mellitus Estimated Average Glucose 232 mg/dL 09/29/2024 9:54 AM EST [facility] Blood VENOUS BLOOD SPECIMEN / Unknown Venipuncture / Unknown 09/28/2024 11:51 PM EST 09/28/2024 11:56 PM EST Hayley Torres MD CHEMISTRY ORDERABLES Performing Organization Address City/[facility]/ZIP Co de Phone Number [facility] [place] [address] * Magnesium (09/28/2024 11:51 PM EST) Magnesium 0.72 0.69 - 1.07 mMol/L 09/29/2024 12:27 AM [facility] Blood VENOUS BLOOD SPECIMEN / Unknown Venipuncture / Unknown 09/28/2024 11:51 PM EST 09/28/2024 11:57 PM EST Hayley Torres MD CHEMISTRY ORDERABLES [facility] [place] [address] * (ABNORMAL) Basic Metabolic Panel (09/28/2024 11:51 PM EST) Glucose 204(H) 65 - 199 mg/dL 09/29/2024 12:40 AM [facility] Comment:Glucose Concentratio n >=200 mg/dL plus symptoms is consistent with Diabetes Mellitus. Blood Urea Nitrogen 6(L) 10 - 20 mg/dL 09/29/2024 12:40 AM [facility] Creatinine 0.52(L) 0.80 - 1.50 mg/dL 09/29/2024 12:40 AM [facility] Sodium 137 135 - 145 mMol/L 09/29/2024 12:40 AM [facility] Potassium 3.2(L) 3.5 - 5.0 mMol/L 09/29/2024 12:40 AM [facility] Chloride 105 98 - 107 mMol/L 09/29/2024 12:40 AM [facility] Carbon Dioxide 21(L) 22 - 31 mMol/L 09/29/2024 12:40 AM [facility] Anion Gap 11 5 - 15 mMol/L 09/29/2024 12:40 AM [facility] Calcium 6.7(LLL) 8.5 - 10.5 mg/dL 09/29/2024 12:40 AM [facility] Est Glomerular Filtration Rate - Male 123 mL/min/1. 73 m?? 09/29/2024 12:40 AM [facility] [...] PM EST Hayley Torres MD CHEMISTRY ORDERABLES [facility] [place] [address] * (ABNORMAL) CBC (with Diff) (09/28/2024 11:51 PM EST) White Blood Cell 12.76(H) 4.00 - 9.50 x10(3)/mc L 09/29/2024 12:00 AM [facility] Red Blood Cell 2.90(L) 4.58 - 5.54 x10(6)/mc L 09/29/2024 12:00 AM [facility] Hemoglobin 8.5(L) 13.7 - 16.5 g/dL 09/29/2024 12:00 AM [facility] Hematocrit 24.7(L) 40.5 - 48.5 % 09/29/2024 12:00 AM [facility] Mean Cell Volume 85.2 82.9 - 93.1 fL 09/29/2024 12:00 AM [facility] Mean Cell Hemoglobin 29.3 27.5 - 32.1 pg 09/29/2024 12:00 AM [facility] Mean Cell Hemoglobin Concentration 34.4 32.0 - 35.7 g/dL 09/29/2024 12:00 AM [facility] Platelet 331 145 - 357 x10(3)/mc L 09/29/2024 12:00 AM [facility] Mean Platelet Volume 9.2 7.6 - 12.9 fL 09/29/2024 12:00 AM [facility] RDW Standard Deviation 40.4 36.0 - 45.0 fL 09/29/2024 12:00 AM [facility] RDW coefficient of variation 13.1 11.4 - 13.8 % 09/29/2024 12:00 AM [facility] NRBC% auto 0.0 % 09/29/2024 12:00 AM [facility] NRBC Absolute <0.01 <0.01 x10(3)/mc L 09/29/2024 12:00 AM [facility] Neutrophil % 86.7 % 09/29/2024 12:00 AM [facility] Neutrophil Absolute (ANC) - Automated 11.06(H) 1.70 - 6.10 x10(3)/mc L 09/29/2024 12:00 AM [facility] Lymph % 7.7 % 09/29/2024 12:00 AM [facility] Lymph Absolute 0.98 0.90 - 3.20 x10(3)/mc L 09/29/2024 12:00 AM [facility] Monocyte % 4.0 % 09/29/2024 12:00 AM [facility] Monocyte Absolute 0.51 0.30 - 0.90 x10(3)/mc L 09/29/2024 12:00 AM [facility] Eos % 0.0 % 09/29/2024 12:00 AM [facility] Eos Absolute <0.04 0.00 - 0.40 x10(3)/mc L 09/29/2024 12:00 AM [facility] Basophil % 0.2 % 09/29/2024 12:00 AM [facility] Baso Absolute <0.04 0.00 - 0.10 x10(3)/mc L 09/29/2024 12:00 AM [facility] Immature Gran % 1.4 % 12:00 AM [facility] Immature Gran Absolute 0.18(H) 0.00 - 0.04 x10(3)/mc L 09/29/2024 12:00 AM [facility] Blood VENOUS BLOOD SPECIMEN / Unknown Venipuncture / Unknown 09/28/2024 11:51 PM EST 09/28/2024 11:56 PM EST Hayley Torres MD HEMATOLOGY ORDERABLE S Performing Organization Address City/[facility]/ZIP Co de Phone Number [facility] [place] [address] * (ABNORMAL) POC, GLUCOSE (09/28/2024 11:45 PM EST) Glucometer, POC 238(H) 65 - 199 mg/dL 09/28/2024 11:45 PM EST [facility] Comment:Supplemental ranges: <140 mg/dL before meals <180 mg/dL all other times of the day. Blood CAPILLARY BLOOD / Unknown 09/28/2024 11:45 PM EST 09/28/2024 11:45 PM EST Hayley Torres MD POINT OF CARE TEST O RDERABLES [facility] [place] [address] * (ABNORMAL) POC, GLUCOSE (09/28/2024 10:00 PM EST) Glucometer, POC 287(H) 65 - 199 mg/dL 09/28/2024 10:00 PM EST [facility] Comment:Supplemental ranges: <140 mg/dL before meals <180 mg/dL all other times of the day. Blood CAPILLARY BLOOD / Unknown 09/28/2024 10:00 PM EST 09/28/2024 10:00 PM EST Hayley Torres MD POINT OF CARE TEST O GILDA [facility] [place] [address] * (ABNORMAL) POC, GLUCOSE (09/28/2024 7:51 PM EST) Glucometer, POC 243(H) 65 - 199 mg/dL 09/28/2024 7:52 PM EST [facility] Comment:Supplemental ranges: <140 mg/dL before meals <180 mg/dL all other times of the day. Blood CAPILLARY BLOOD / Unknown 09/28/2024 7:51 PM EST 09/28/2024 7:52 PM EST Hayley Torres MD POINT OF CARE TEST Stephanie VO [facility] [place] [address] * Blood culture (09/28/2024 5:49 PM EST) [facility] Blood Culture No growth at 120 hours 10/03/2024 7:01 PM EST [facility] Blood VENOUS BLOOD SPECIMEN / Unknown Venipuncture / Unknown 09/28/2024 5:49 PM EST 09/28/2024 5:53 PM EST Marko Dickson MD MICROBIOLOGY - BLOOD ORDERABLES [facility] [place] [address] * (ABNORMAL) POC, GLUCOSE (09/28/2024 4:42 PM EST) Glucometer, POC 203(H) 65 - 199 mg/dL 09/28/2024 4:42 PM EST [facility] Comment:Supplemental ranges: <140 mg/dL before meals <180 mg/dL all other times of the day. Blood CAPILLARY BLOOD / Unknown 09/28/2024 4:42 PM EST 09/28/2024 4:42 PM EST Hayley Torres MD POINT OF CARE TEST O RDERABLES [facility] [place] [address] * (ABNORMAL) Blood Gas, Arterial POC (09/28/2024 3:16 PM EST) pH, Arterial 7.42 7.35 - 7.45 09/28/2024 3:17 PM [facility] PCO2, Arterial 39 35 - 45 mmHg 09/28/2024 3:17 PM [facility] PO2, Arterial 103 85 - 104 mmHg 09/28/2024 3:17 PM [facility] Bicarbonate, Arterial 24.8 20.0 - 26.0 mmol/L 09/28/2024 3:17 PM [facility] Base Excess, Arterial 0.2 -3.0 - 3.0 mmol/L 09/28/2024 3:17 PM [facility] Hemoglobin, Arterial 10.9(L) 13.7 - 16.5 g/dL 09/28/2024 3:17 PM [facility] Oxyhemoglobin, Arterial 97.1(H) 94.0 - 97.0 % 09/28/2024 3:17 PM [facility] Carboxyhemoglobin , Arterial 0.1 % 09/28/2024 3:17 PM [facility] Comment: Nonsmokers: 0.5-1.5% COHB ?? Smokers: Variable ??but usually less than 10% ?? Toxic: 20-30% COHB ?? Lethal: Greater than 60% COHB Methemoglobin, Arterial 0.2 <=1.5 % 09/28/2024 3:17 PM [facility] Sodium, Arterial 131(L) 135 - 145 mmol/L 09/28/2024 3:17 PM EST [facility] Potassium, Arterial 3.8 3.5 - 5.0 mmol/L 09/28/2024 3:17 PM EST [facility] Chloride, Arterial 99 98 - 107 mmol/L 09/28/2024 3:17 PM EST [facility] Lactate, Arterial 1.1 0.5 - 2.2 mmol/L 09/28/2024 3:17 PM EST [facility] IONIZED CALCIUM, ARTERIAL 1.08(L) 1.15 - 1.33 mmol/L 09/28/2024 3:17 PM EST [facility] Glucose, Arterial 163 65 - 199 mg/dL 09/28/2024 3:17 PM EST [facility] Comment:Glucose Concentratio n >=200 mg/dL plus symptoms is consistent with Diabetes Mellitus. Blood ARTERIAL BLOOD / Unknown 09/28/2024 3:16 PM EST 09/28/2024 3:17 PM EST Hayley Torres MD POINT OF CARE TEST O RDERABLES [facility] [place] [address] * Surgical Pathology (09/28/2024 2:10 PM EST) Case Report Surgical Pathology Report ? Case: [id number] ? Authorizing Provider: ??Hayley Torres MD ? Collected: ? 09/28/2024 1410 ? Ordering Location: ? Main Operating Room [facility] ?? Received: ?09/28/2024 1644 ? [facility] ? Hospital ? Pathologist: ? Aziza Packer MD ? Specimens: ?? A) - Leg, Left, Left femoral proximal graft ? B) - Leg, Left, Left distal BK pop graft ? 10/02/2024 8:17 AM [facility] Final Diagnosis A. Graft, left leg, femoral proximal, excision: - Gross surgical pathology examination. B. Graft, left leg, distal BK pop, excision: - Gross surgical pathology examination. 10/02/2024 8:17 AM [facility] Clinical Information A. Leg, Left, Left femoral proximal graft Left femoral proximal graft B. Leg, Left, Left distal BK pop graft Left distal BK pop graft 10/02/2024 8:17 AM EST [facility] Gross Description A. Leg, Left, [...] diagnosis only sns 10/02/2024 8:17 AM EST [facility] Result Note Routine 10/02/2024 8:17 AM [facility] T[employer] STRUCTURE OF LEFT LOWER LIMB / Unknown 09/28/2024 2:10 PM EST 09/28/2024 4:44 PM EST Comment:Left femoral proxima l graft Biomedical device (physical object) STRUCTURE OF LEFT LOWER LIMB / Unknown 09/28/2024 2:17 PM EST 09/28/2024 4:44 PM EST Comment:Left distal BK pop g raft Hayley Torres MD PATHOLOGY/CYTOLOGY O RDERABLES [facility] [place] [address] * Potassium (09/28/2024 10:45 AM EST) Potassium 4.6 3.5 - 5.0 mMol/L 09/28/2024 12:26 PM EST [facility] Blood VENOUS BLOOD SPECIMEN / Unknown Venipuncture / Unknown 09/28/2024 10:45 AM EST 09/28/2024 10:53 AM EST Marko Dickson MD CHEMISTRY ORDERABLES Performing Organization Address [facility] de Phone Number [facility] [place] [address] * POC, GLUCOSE (09/28/2024 7:57 AM EST) Glucometer, POC 192 65 - 199 mg/dL 09/28/2024 7:57 AM EST [facility] Comment:Supplemental ranges: <140 mg/dL before meals <180 mg/dL all other times of the day. Blood CAPILLARY BLOOD / Unknown 09/28/2024 7:57 AM EST 09/28/2024 7:57 AM EST Marko Dickson MD POINT OF CARE TEST O RDERABLES Performing Organization Address [facility] de Phone Number [facility] [place] [address] * ELEN, legs, multiple levels (09/28/2024 7:44 AM EST) [facility] Signature VB Text Report Department: Vascular Surgery Lab Patient: [id number] (GEOVANNA DIXON) CPT: 37980 Referring Physician: HERMILA SNIDER ?? Phone: Indications: [...] EST Narrative 09/28/2024 9:15 AM EST [address] [place] [address] ? Echocardiogram Report Name: GEOVANNA DIXON JR ?Study Date: 09/28/2024 06:56 AMBP: 132/75 mmHg ? Patient Location: ^IC08^A : 1975 ? Height: 179 cm ? Account: [id number] Age: 49 yrs ? Weight: 108 kg [...] 05/29/2024, no significant changes. Procedure Limited - 23782. Doppler - 01792. Color Doppler - 32908. Suboptimal quality. This study is limited because [...] Note David Lomeli MD - 09/28/2024 [address] [place] [address] Echocardiogram Report Name: GEOVANNA DIXON JR Study Date: 406:56 AMBP: 132/75 mmHg Patient Location:^IC08^A : 1975 Height: 179 cm Account: [id number] Age: 49 yrs Weight: 108 kg Gender: [...] 05/29/2024, no significant changes. Procedure Limited - 32037. Doppler - 19135. Color Doppler - 83934. Suboptimalquality. This study is limited because of [...] * Vancomycin, trough (09/28/2024 6:44 AM EST) [facility] Vancomycin, Trough 10.0 10.0 - 20.0 mg/L 09/28/2024 7:21 AM EST [facility] Comment: Varies according to infection source. Blood VENOUS BLOOD SPECIMEN / Unknown Venipuncture / Unknown 09/28/2024 6:44 AM EST 09/28/2024 6:49 AM EST Marko Dickson MD CHEMISTRY ORDERABLES Performing Organization Address City/[facility]/ZIP Co de Phone Number [facility] [place] [address] * (ABNORMAL) Potassium (09/28/2024 4:55 AM EST) [facility] Potassium 2.9(LLL) 3.5 - 5.0 mMol/L 09/28/2024 5:31 AM EST [facility] Blood VENOUS BLOOD SPECIMEN / Unknown Venipuncture / Unknown 09/28/2024 4:55 AM EST 09/28/2024 5:01 AM EST Marko Dickson MD CHEMISTRY ORDERABLES Performing Organization Address [facility] Co de Phone Number [facility] [place] [address] * (ABNORMAL) POC, GLUCOSE (09/28/2024 3:54 AM EST) [facility] Glucometer, POC 229(H) 65 - 199 mg/dL 09/28/2024 3:54 AM EST [facility] Comment:Supplemental ranges: <140 mg/dL before meals <180 mg/dL all other times of the day. Blood CAPILLARY BLOOD / Unknown 09/28/2024 3:54 AM EST 09/28/2024 3:54 AM EST Marko Dickson MD POINT OF CARE TEST O RDERABLES [facility] [place] [address] * Magnesium (09/27/2024 11:58 PM EST) Pathologist [facility] Magnesium 0.77 0.69 - 1.07 mMol/L 09/28/2024 12:38 AM [facility] Blood VENOUS BLOOD SPECIMEN / Unknown Venipuncture / Unknown 09/27/2024 11:58 PM EST 09/28/2024 12:10 AM EST Hayley Torres MD CHEMISTRY ORDERABLES Performing Organization Address City/[facility]/ZIP Co de Phone Number [facility] [place] [address] * (ABNORMAL) Basic Metabolic Panel (09/27/2024 11:58 PM EST) [facility] Glucose 246(H) 65 - 199 mg/dL 09/28/2024 12:38 AM [facility] Comment:Glucose Concentratio n >=200 mg/dL plus symptoms is consistent with Diabetes Mellitus. Blood Urea Nitrogen 5(L) 10 - 20 mg/dL 09/28/2024 12:38 AM [facility] Creatinine 0.48(L) 0.80 - 1.50 mg/dL 09/28/2024 12:38 AM [facility] Sodium 131(L) 135 - 145 mMol/L 09/28/2024 12:38 AM [facility] Potassium 3.2(L) 3.5 - 5.0 mMol/L 09/28/2024 12:38 AM [facility] Chloride 95(L) 98 - 107 mMol/L 09/28/2024 12:38 AM [facility] Carbon Dioxide 23 22 - 31 mMol/L 09/28/2024 12:38 AM [facility] Anion Gap 13 5 - 15 mMol/L 09/28/2024 12:38 AM [facility] Calcium 8.1(L) 8.5 - 10.5 mg/dL 09/28/2024 12:38 AM [facility] Est Glomerular Filtration Rate - Male 126 mL/min/1. 73 m?? 09/28/2024 12:38 AM [facility] [...] AM EST Hayley Torres MD CHEMISTRY ORDERABLES [facility] [place] [address] * (ABNORMAL) CBC (with Diff) (09/27/2024 11:58 PM EST) White Blood Cell 17.15(H) 4.00 - 9.50 x10(3)/mc L 09/28/2024 12:14 AM [facility] Red Blood Cell 3.64(L) 4.58 - 5.54 x10(6)/mc L 09/28/2024 12:14 AM [facility] Hemoglobin 10.4(L) 13.7 - 16.5 g/dL 09/28/2024 12:14 AM [facility] Hematocrit 30.5(L) 40.5 - 48.5 % 09/28/2024 12:14 AM [facility] Mean Cell Volume 83.8 82.9 - 93.1 fL 09/28/2024 12:14 AM [facility] Mean Cell Hemoglobin 28.6 27.5 - 32.1 pg 09/28/2024 12:14 AM [facility] Mean Cell Hemoglobin Concentration 34.1 32.0 - 35.7 g/dL 09/28/2024 12:14 AM [facility] Platelet 316 145 - 357 x10(3)/mc L 09/28/2024 12:14 AM [facility] Mean Platelet Volume 9.4 7.6 - 12.9 fL 09/28/2024 12:14 AM [facility] RDW Standard Deviation 39.4 36.0 - 45.0 fL 09/28/2024 12:14 AM [facility] RDW coefficient of variation 12.8 11.4 - 13.8 % 09/28/2024 12:14 AM [facility] NRBC% auto 0.0 % 09/28/2024 12:14 AM [facility] NRBC Absolute <0.01 <0.01 x10(3)/mc L 09/28/2024 12:14 AM [facility] Neutrophil % 81.2 % 09/28/2024 12:14 AM [facility] Neutrophil Absolute (ANC) - Automated 13.93(H) 1.70 - 6.10 x10(3)/mc L 09/28/2024 12:14 AM [facility] Lymph % 10.5 % 09/28/2024 12:14 AM [facility] Lymph Absolute 1.80 0.90 - 3.20 x10(3)/mc L 09/28/2024 12:14 AM [facility] Monocyte % 5.7 % 09/28/2024 12:14 AM [facility] Monocyte Absolute 0.98(H) 0.30 - 0.90 x10(3)/mc L 09/28/2024 12:14 AM [facility] Eos % 0.7 % 09/28/2024 12:14 AM [facility] Eos Absolute 0.12 0.00 - 0.40 x10(3)/mc L 09/28/2024 12:14 AM EST [facility] Basophil % 0.5 % 09/28/2024 12:14 AM [facility] Baso Absolute 0.08 0.00 - 0.10 x10(3)/mc L 09/28/2024 12:14 AM [facility] Immature Gran % 1.4 % 12:14 AM [facility] Immature Gran Absolute 0.24(H) 0.00 - 0.04 x10(3)/mc L 09/28/2024 12:14 AM [facility] Blood VENOUS BLOOD SPECIMEN / Unknown Venipuncture / Unknown 09/27/2024 11:58 PM EST 09/28/2024 12:10 AM EST Hayley Torres MD HEMATOLOGY ORDERABLE S [facility] [place] [address] * (ABNORMAL) POC, GLUCOSE (09/27/2024 11:46 PM EST) [facility] Glucometer, POC 205(H) 65 - 199 mg/dL 09/27/2024 11:46 PM EST [facility] Comment:Supplemental ranges: <140 mg/dL before meals <180 mg/dL all other times of the day. Blood CAPILLARY BLOOD / Unknown 09/27/2024 11:46 PM EST 09/27/2024 11:46 PM EST Marko Dickson MD POINT OF CARE TEST O RDERABLES [facility] [place] [address] * (ABNORMAL) Blood culture (09/27/2024 9:33 PM EST) [facility] Blood Culture Methicillin Resistant Staphylococcus aureus(Critical) 10/02/2024 8:04 AM EST [facility] Comment:Susceptibilities pre viously reported. Gram Stain Aerobic Bottle: Gram positive cocci in clusters(Critical ) 10/02/2024 8:04 AM EST [facility] Blood VENOUS BLOOD SPECIMEN / Unknown Venipuncture / Unknown 09/27/2024 9:33 PM EST 09/27/2024 9:38 PM EST Marko Dickson MD MICROBIOLOGY - BLOOD ORDERABLES Performing Organization Address City/[facility]/ZIP Co de Phone Number [facility] [place] [address] * POC, GLUCOSE (09/27/2024 7:51 PM EST) [facility] Glucometer, POC 142 65 - 199 mg/dL 09/27/2024 7:51 PM EST [facility] Comment:Supplemental ranges: <140 mg/dL before meals <180 mg/dL all other times of the day. Blood CAPILLARY BLOOD / Unknown 09/27/2024 7:51 PM EST 09/27/2024 7:51 PM EST Marko Dickson MD POINT OF CARE TEST O RDERABLES Performing Organization Address [facility]/ZIP Co de Phone Number [facility] [place] [address] * (ABNORMAL) Hemogram (09/27/2024 5:55 PM EST) [facility] White Blood Cell 19.38(H) 4.00 - 9.50 x10(3)/mc L 09/27/2024 6:16 PM EST [facility] Red Blood Cell 3.76(L) 4.58 - 5.54 x10(6)/mc L 09/27/2024 6:16 PM EST [facility] Hemoglobin 11.0(L) 13.7 - 16.5 g/dL 09/27/2024 6:16 PM EST [facility] Hematocrit 31.6(L) 40.5 - 48.5 % 09/27/2024 6:16 PM [facility] Mean Cell Volume 84.0 82.9 - 93.1 fL 09/27/2024 6:16 PM [facility] Mean Cell Hemoglobin 29.3 27.5 - 32.1 pg 09/27/2024 6:16 PM [facility] Mean Cell Hemoglobin Concentration 34.8 32.0 - 35.7 g/dL 09/27/2024 6:16 PM [facility] Platelet 322 145 - 357 x10(3)/mc L 09/27/2024 6:16 PM [facility] Mean Platelet Volume 9.4 7.6 - 12.9 fL 09/27/2024 6:16 PM [facility] RDW Standard Deviation 39.4 36.0 - 45.0 fL 09/27/2024 6:16 PM [facility] RDW coefficient of variation 13.0 11.4 - 13.8 % 09/27/2024 6:16 PM [facility] NRBC% auto 0.0 % 09/27/2024 6:16 PM [facility] NRBC Absolute <0.01 <0.01 x10(3)/mc L 09/27/2024 6:16 PM [facility] Blood VENOUS BLOOD SPECIMEN / Unknown Venipuncture / Unknown 09/27/2024 5:55 PM EST 09/27/2024 6:05 PM EST Marko Dickson MD HEMATOLOGY ORDERABLE S [facility] [place] [address] * POC, GLUCOSE (09/27/2024 5:48 PM EST) [facility] Signature Glucometer, POC 171 65 - 199 mg/dL 09/27/2024 5:48 PM [facility] Comment:Supplemental ranges: <140 mg/dL before meals <180 mg/dL all other times of the day. Blood CAPILLARY BLOOD / Unknown 09/27/2024 5:48 PM EST 09/27/2024 5:48 PM EST Marko Dickson MD POINT OF CARE TEST O RDERABLES [facility] [place] [address] * Anaerobic Culture (09/27/2024 4:54 PM EST) Anaerobic Culture No anaerobic organisms isolated 10/01/2024 3:54 PM EST [facility] Tissue STRUCTURE OF LEFT THIGH / Unknown 09/27/2024 4:54 PM EST Comment:Infected explanted l eft leg bypass graft Hayley Torres MD MICROBIOLOGY - GENER AL ORDERABLES Performing Organization Address City/[facility]/ZIP Co de Phone Number [facility] [place] [address] * (ABNORMAL) Tissue Culture, Aerobic Only (09/27/2024 4:54 PM EST) Tissue Culture Rare Methicillin Resistant Staphylococcus aureus(A) VITEK 2 METHOD 10/01/2024 1:18 PM EST [facility] Gram Stain Few Neutrophils seen 10/01/2024 1:18 PM EST [facility] Gram Stain No microorganisms seen 10/01/2024 1:18 PM EST [facility] Tissue STRUCTURE OF LEFT [...] - GENER AL ORDERABLES Performing Organization Address [facility]/ZIP Co de Phone Number [facility] [place] [address] * POC, GLUCOSE (09/27/2024 3:23 PM EST) Glucometer, POC 178 65 - 199 mg/dL 09/27/2024 3:23 PM EST [facility] Comment:Supplemental ranges: <140 mg/dL before meals <180 mg/dL all other times of the day. Blood CAPILLARY BLOOD / Unknown 09/27/2024 3:23 PM EST 09/27/2024 3:23 PM EST Marko Dickson MD POINT OF CARE TEST O RDERABLES Performing Organization Address [facility] Co de Phone Number [facility] [place] [address] * POC, GLUCOSE (09/27/2024 11:29 AM EST) Glucometer, POC 181 65 - 199 mg/dL 09/27/2024 11:29 AM EST [facility] Comment:Supplemental ranges: <140 mg/dL before meals <180 mg/dL all other times of the day. Blood CAPILLARY BLOOD / Unknown 09/27/2024 11:29 AM EST 09/27/2024 11:30 AM EST Marko Dickson MD POINT OF CARE TEST O RDERABLES Performing Organization Address City/[facility] Co de Phone Number [facility] [place] [address] * CT Lower Extremity w Contrast Left (09/27/2024 9:16 AM EST) [employer] Signature WORKSTATION ID [id number] [facility] Anatomical Region Laterality Modality Hip, Leg, Knee, [...] who have questions please contact the health lawn care specialist that requested your imaging first. ? Electronically signed by: Ignacia Chi MD, [facility] ([phone]), at 09/27/2024 10:48 AM Narrative 09/27/2024 10:48 [...] wedged between the vastus medialis and adductor [place] muscle. This tracks into the popliteal fossa [...] is wedgedbetween the vastus medialis and adductor [place] muscle. This tracks into thepopliteal fossa and [...] patients who have questions please contactthe health lawn care specialist that requested your imaging first. Rose Wright APRN IMG CT ORDERABL ES * POC, GLUCOSE (09/27/2024 7:51 AM EST) Pathologist [facility] Glucometer, POC 194 65 - 199 mg/dL 09/27/2024 7:51 AM EST [facility] Comment:Supplemental ranges: <140 mg/dL before meals <180 mg/dL all other times of the day. Blood CAPILLARY BLOOD / Unknown 09/27/2024 7:51 AM EST 09/27/2024 7:51 AM EST Marko Dickson MD POINT OF CARE TEST O RDERAHERNANDEZ [facility] [place] [address] * (ABNORMAL) MRSA PCR Screen (09/27/2024 7:51 AM EST) MRSA PCR Detected(A ) 09/27/2024 11:56 AM EST [facility] Swab BOTH ANTERIOR NARES / Unknown Non Blood Collection / Unknown 09/27/2024 7:51 AM EST 09/27/2024 8:05 AM EST Narrative [facility] - 09/27/2024 11:56 AM EST This test was performed using the Xpert MRSA NxG test kit and is run on the Definition 6 GeneXpert Dx System. This test is cleared by the U.S. Food and Drug Administration for clinical use and its performance characteristics have been verified by the [facility] at [facility]. Marko Dickson MD MOLECULAR ORDERABLES Performing Organization Address City/[facility]/ZIP Co de Phone Number [facility] [place] [address] * Potassium (09/27/2024 7:51 AM EST) Potassium 3.5 3.5 - 5.0 mMol/L 09/27/2024 9:09 AM EST [facility] Blood VENOUS BLOOD SPECIMEN / Unknown Venipuncture / Unknown 09/27/2024 7:51 AM EST 09/27/2024 8:05 AM EST Marko Dickson MD CHEMISTRY ORDERABLES Performing Organization Address City/[facility]/ZIP Co de Phone Number [facility] [place] [address] * (ABNORMAL) Potassium (09/27/2024 5:05 AM EST) [facility] Signature Potassium 3.4(L) 3.5 - 5.0 mMol/L 09/27/2024 5:32 AM EST [facility] Blood VENOUS BLOOD SPECIMEN / Unknown Venipuncture / Unknown 09/27/2024 5:05 AM EST 09/27/2024 5:09 AM EST Marko Dickson MD CHEMISTRY ORDERABLES Performing Organization Address City/[facility]/ZIP Co de Phone Number [facility] [place] [address] * POC, GLUCOSE (09/27/2024 3:52 AM EST) [facility] Signature Glucometer, POC 199 65 - 199 mg/dL 09/27/2024 3:52 AM EST [facility] Comment:Supplemental ranges: <140 mg/dL before meals <180 mg/dL all other times of the day. Blood CAPILLARY BLOOD / Unknown 09/27/2024 3:52 AM EST 09/27/2024 3:52 AM EST Marko Dickson MD POINT OF CARE TEST O RDERAHERNANDEZ Performing Organization Address City/[facility]/ZIP Co de Phone Number [facility] [place] [address] * (ABNORMAL) POC, GLUCOSE (09/27/2024 1:59 AM EST) Glucometer, POC 219(H) 65 - 199 mg/dL 09/27/2024 2:00 AM EST [facility] Comment:Supplemental ranges: <140 mg/dL before meals <180 mg/dL all other times of the day. Blood CAPILLARY BLOOD / Unknown 09/27/2024 1:59 AM EST 09/27/2024 2:00 AM EST Marko Dickson MD POINT OF CARE TEST O GILDA Performing Organization Address City/[facility]/ZIP Co de Phone Number [facility] [place] [address] * (ABNORMAL) Magnesium (09/27/2024 12:01 AM EST) Magnesium 0.68(L) 0.69 - 1.07 mMol/L 09/27/2024 12:35 AM EST [facility] Blood VENOUS BLOOD SPECIMEN / Unknown Venipuncture / Unknown 09/27/2024 12:01 AM EST 09/27/2024 12:05 AM EST Hayley Torres MD CHEMISTRY ORDERABLES [facility] [place] [address] * (ABNORMAL) Basic Metabolic Panel (09/27/2024 12:01 AM EST) Glucose 261(H) 65 - 199 mg/dL 09/27/2024 12:35 AM [facility] Comment:Glucose Concentratio n >=200 mg/dL plus symptoms is consistent with Diabetes Mellitus. Blood Urea Nitrogen 7(L) 10 - 20 mg/dL 09/27/2024 12:35 AM [facility] Creatinine 0.45(L) 0.80 - 1.50 mg/dL 09/27/2024 12:35 AM [facility] Sodium 128(L) 135 - 145 mMol/L 09/27/2024 12:35 AM [facility] Potassium 3.3(L) 3.5 - 5.0 mMol/L 09/27/2024 12:35 AM [facility] Chloride 92(L) 98 - 107 mMol/L 09/27/2024 12:35 AM [facility] Carbon Dioxide 23 22 - 31 mMol/L 09/27/2024 12:35 AM [facility] Anion Gap 13 5 - 15 mMol/L 09/27/2024 12:35 AM [facility] Calcium 8.5 8.5 - 10.5 mg/dL 09/27/2024 12:35 AM [facility] Est Glomerular Filtration Rate - Male 128 mL/min/1. 73 m?? 09/27/2024 12:35 AM [facility] [...] AM EST Hayley Torres MD CHEMISTRY ORDERABLES [facility] [place] [address] * (ABNORMAL) CBC (with Diff) (09/27/2024 12:01 AM EST) White Blood Cell 23.20(H) 4.00 - 9.50 x10(3)/mc L 09/27/2024 12:10 AM [facility] Red Blood Cell 4.07(L) 4.58 - 5.54 x10(6)/mc L 09/27/2024 12:10 AM [facility] Hemoglobin 11.7(L) 13.7 - 16.5 g/dL 09/27/2024 12:10 AM [facility] Hematocrit 33.6(L) 40.5 - 48.5 % 09/27/2024 12:10 AM [facility] Mean Cell Volume 82.6(L) 82.9 - 93.1 fL 09/27/2024 12:10 AM [facility] Mean Cell Hemoglobin 28.7 27.5 - 32.1 pg 09/27/2024 12:10 AM [facility] Mean Cell Hemoglobin Concentration 34.8 32.0 - 35.7 g/dL 09/27/2024 12:10 AM [facility] Platelet 296 145 - 357 x10(3)/mc L 09/27/2024 12:10 AM [facility] Mean Platelet Volume 9.5 7.6 - 12.9 fL 09/27/2024 12:10 AM [facility] RDW Standard Deviation 37.9 36.0 - 45.0 fL 09/27/2024 12:10 AM [facility] RDW coefficient of variation 12.6 11.4 - 13.8 % 09/27/2024 12:10 AM [facility] NRBC% auto 0.0 % 09/27/2024 12:10 AM [facility] NRBC Absolute <0.01 <0.01 x10(3)/mc L 09/27/2024 12:10 AM [facility] Neutrophil % 83.7 % 09/27/2024 12:10 AM [facility] Neutrophil Absolute (ANC) - Automated 19.43(H) 1.70 - 6.10 x10(3)/mc L 09/27/2024 12:10 AM [facility] Lymph % 6.7 % 09/27/2024 12:10 AM [facility] Lymph Absolute 1.56 0.90 - 3.20 x10(3)/mc L 09/27/2024 12:10 AM [facility] Monocyte % 7.8 % 09/27/2024 12:10 AM [facility] Monocyte Absolute 1.80(H) 0.30 - 0.90 x10(3)/mc L 09/27/2024 12:10 AM [facility] Eos % 0.2 % 09/27/2024 12:10 AM [facility] Eos Absolute 0.04 0.00 - 0.40 x10(3)/mc L 09/27/2024 12:10 AM [facility] Basophil % 0.5 % 09/27/2024 12:10 AM [facility] Baso Absolute 0.12(H) 0.00 - 0.10 x10(3)/mc L 09/27/2024 12:10 AM [facility] Immature Gran % 1.1 % 12:10 AM [facility] Immature Gran Absolute 0.25(H) 0.00 - 0.04 x10(3)/mc L 09/27/2024 12:10 AM [facility] Blood VENOUS BLOOD SPECIMEN / Unknown Venipuncture / Unknown 09/27/2024 12:01 AM EST 09/27/2024 12:05 AM EST Hayley Torres MD HEMATOLOGY ORDERABLE S Performing Organization Address [facility] Co de Phone Number [facility] [place] [address] * (ABNORMAL) POC, GLUCOSE (09/26/2024 11:59 PM EST) Glucometer, POC 251(H) 65 - 199 mg/dL 09/26/2024 11:59 PM EST [facility] Comment:Supplemental ranges: <140 mg/dL before meals <180 mg/dL all other times of the day. Blood CAPILLARY BLOOD / Unknown 09/26/2024 11:59 PM EST 09/26/2024 11:59 PM EST Marko Dickson MD POINT OF CARE TEST Stephanie VO Performing Organization Address [facility] Co de Phone Number [facility] [place] [address] * (ABNORMAL) POC, GLUCOSE (09/26/2024 7:34 PM EST) Glucometer, POC 204(H) 65 - 199 mg/dL 09/26/2024 7:34 PM EST [facility] Comment:Supplemental ranges: <140 mg/dL before meals <180 mg/dL all other times of the day. Blood CAPILLARY BLOOD / Unknown 09/26/2024 7:34 PM EST 09/26/2024 7:35 PM EST Marko Dickson MD POINT OF CARE TEST Stephanie VO Performing Organization Address [facility]/ZIP Co de Phone Number [facility] [place] [address] * (ABNORMAL) Blood culture (09/26/2024 6:45 PM EST) Blood Culture Methicillin Resistant Staphylococcus aureus(Critical) 10/01/2024 6:58 AM EST [facility] Comment: isolated. Susceptibilities previously reported. Gram Stain Aerobic Bottle: Gram positive cocci in clusters(Critical ) 10/01/2024 6:58 AM EST [facility] Blood VENOUS BLOOD SPECIMEN / Unknown Venipuncture / Unknown 09/26/2024 6:45 PM EST 09/26/2024 6:48 PM EST Marko Dickson MD MICROBIOLOGY - BLOOD ORDERABLES Performing Organization Address City/[facility]/ZIP Co de Phone Number [facility] [place] [address] * (ABNORMAL) Sonicated Tissue/Implant Culture (09/26/2024 5:16 PM EST) Sonicated Tissue/Implan t Culture Methicillin Resistant Staphylococcus aureus(A) VITEK 2 METHOD 09/30/2024 1:49 PM EST [facility] Comment: isolated from broth culture. Susceptibilities previously reported. Vascular Graft STRUCTURE OF LEFT LOWER LIMB / Unknown Non Blood Collection / Unknown 09/26/2024 5:16 PM EST 09/26/2024 5:45 PM EST Marko Dickson MD MICROBIOLOGY - GENER AL ORDERABLES Performing Organization Address City/[facility]/ZIP Co de Phone Number [facility] [place] [address] * Anaerobic Culture (09/26/2024 5:02 PM EST) Anaerobic Culture No anaerobic organisms isolated 09/30/2024 3:51 PM EST [facility] Abscess STRUCTURE OF LEFT KNEE REGION / Unknown Non Blood Collection / Unknown 09/26/2024 5:02 PM EST Comment:Left Below Knee popl iteal fluid Please perform Gram stain if not included in order Hayley Torres MD MICROBIOLOGY - GENER AL ORDERABLES [facility] [place] [address] * (ABNORMAL) Abscess/Wound Aspirate Culture, Aerobic Only (09/26/2024 5:02 PM EST) Abscess/Wound Aspirate Culture Many Methicillin Resistant Staphylococcus aureus(A) VITEK 2 METHOD 09/30/2024 1:37 PM EST [facility] Gram Stain Many neutrophils(A) 09/30/2024 1:37 PM EST [facility] Gram Stain Many Gram positive cocci(A) 09/30/2024 1:37 PM EST [facility] Abscess STRUCTURE OF LEFT [...] - GENER AL ORDERABLES Performing Organization Address City/[facility] Co de Phone Number [facility] [place] [address] * Anaerobic Culture (09/26/2024 4:50 PM EST) Anaerobic Culture No anaerobic organisms isolated 09/30/2024 3:51 PM EST [facility] Abscess LEFT INGUINAL REGION STRUCTURE / Unknown Non Blood Collection / Unknown 09/26/2024 4:50 PM EST Comment:Left Groin Fluid Hayley Torres MD MICROBIOLOGY - GENER AL ORDERABLES Performing Organization Address [facility]/ZIP Co de Phone Number [facility] [place] [address] * (ABNORMAL) Abscess/Wound Aspirate Culture, Aerobic Only (09/26/2024 4:50 PM EST) Abscess/Wound Aspirate Culture Many Methicillin Resistant Staphylococcus aureus(A) VITEK 2 METHOD 09/30/2024 1:36 PM EST [facility] Gram Stain Many neutrophils(A) 09/30/2024 1:36 PM EST [facility] Gram Stain Many Gram positive cocci(A) 09/30/2024 1:36 PM EST [facility] Abscess LEFT INGUINAL REGION [...] - GENER AL ORDERABLES Performing Organization Address City/[facility]/ZIP Co de Phone Number [facility] [place] [address] * (ABNORMAL) Blood Gas, Arterial POC (09/26/2024 4:43 PM EST) pH, Arterial 7.38 7.35 - 7.45 09/27/2024 7:41 AM [facility] PCO2, Arterial 41 35 - 45 mmHg 09/27/2024 7:41 AM [facility] PO2, Arterial 96 85 - 104 mmHg 09/27/2024 7:41 AM [facility] Bicarbonate, Arterial 23.8 20.0 - 26.0 mmol/L 09/27/2024 7:41 AM [facility] Base Excess, Arterial -1.4 -3.0 - 3.0 mmol/L 09/27/2024 7:41 AM [facility] Hemoglobin, Arterial 12.6(L) 13.7 - 16.5 g/dL 09/27/2024 7:41 AM [facility] Oxyhemoglobin, Arterial 96.2 94.0 - 97.0 % 09/27/2024 7:41 AM [facility] Carboxyhemoglobin , Arterial 0.3 % 09/27/2024 7:41 AM [facility] Comment: Nonsmokers: 0.5-1.5% COHB ?? Smokers: Variable ??but usually less than 10% ?? Toxic: 20-30% COHB ?? Lethal: Greater than 60% COHB Methemoglobin, Arterial 0.3 <=1.5 % 09/27/2024 7:41 AM [facility] Sodium, Arterial 128(L) 135 - 145 mmol/L 09/27/2024 7:41 AM [facility] Potassium, Arterial 3.0(LLL) 3.5 - 5.0 mmol/L 09/27/2024 7:41 AM [facility] Chloride, Arterial 95(L) 98 - 107 mmol/L 09/27/2024 7:41 AM [facility] Lactate, Arterial 1.7 0.5 - 2.2 mmol/L 09/27/2024 7:41 AM [facility] IONIZED CALCIUM, ARTERIAL 1.09(L) 1.15 - 1.33 mmol/L 09/27/2024 7:41 AM [facility] Glucose, Arterial 205(H) 65 - 199 mg/dL 09/27/2024 7:41 AM EST [facility] Comment:Glucose Concentratio n >=200 mg/dL plus symptoms is consistent with Diabetes Mellitus. Blood ARTERIAL BLOOD / Unknown 09/26/2024 4:43 PM EST 09/27/2024 7:41 AM EST Marko Dickson MD POINT OF CARE TEST O GILDA Performing Organization Address City/[facility] Co de Phone Number [facility] [place] [address] * (ABNORMAL) POC, GLUCOSE (09/26/2024 4:29 PM EST) Glucometer, POC 213(H) 65 - 199 mg/dL 09/26/2024 4:30 PM EST [facility] Comment:Supplemental ranges: <140 mg/dL before meals <180 mg/dL all other times of the day. Blood CAPILLARY BLOOD / Unknown 09/26/2024 4:29 PM EST 09/26/2024 4:30 PM EST Marko Dickson MD POINT OF CARE TEST O GILDA Performing Organization Address City/[facility] Co de Phone Number [facility] [place] [address] * (ABNORMAL) Blood Gas, Venous POC (09/26/2024 3:28 PM EST) pH, Venous 7.43(H) 7.32 - 7.42 09/26/2024 3:30 PM EST [facility] PCO2, Venous 41 38 - 58 mmHg 09/26/2024 3:30 PM EST [facility] PO2, Venous 18 16 - 65 mmHg 09/26/2024 3:30 PM EST [facility] Bicarbonate, Venous 26.6 22 - 31 mmol/L 09/26/2024 3:30 PM EST [facility] Base Excess, Venous 2.3 1.9 - 4.5 mmol/L 09/26/2024 3:30 PM [facility] Hemoglobin, Venous 12.4(L) 13.7 - 16.5 g/dL 09/26/2024 3:30 PM [facility] Oxyhemoglobin, Venous 26.8 % 09/26/2024 3:30 PM [facility] Carboxyhemoglobin , Venous 1.0 % 09/26/2024 3:30 PM [facility] Comment: Nonsmokers: 0.5-1.5% COHB ?? Smokers: Variable ??but usually less than 10% ?? Toxic: 20-30% COHB ?? Lethal: Greater than 60% COHB Methemoglobin, Venous 0.4 <=1.5 % 09/26/2024 3:30 PM [facility] Sodium, Venous 127(L) 135 - 145 mmol/L 09/26/2024 3:30 PM [facility] Potassium, Venous 3.3(L) 3.5 - 5.0 mmol/L 09/26/2024 3:30 PM [facility] Chloride, Venous 91(L) 98 - 107 mmol/L 09/26/2024 3:30 PM [facility] Glucose, Venous 259(H) 65 - 199 mg/dL 09/26/2024 3:30 PM [facility] Comment:Glucose Concentratio n >=200 mg/dL plus symptoms is consistent with Diabetes Mellitus. Lactate, Venous 2.2 0.5 - 2.2 mmol/L 09/26/2024 3:30 PM [facility] Ionized Calcium, Venous 1.09(L) 1.15 - 1.33 mmol/L 09/26/2024 3:30 PM [facility] Blood VENOUS BLOOD SPECIMEN / Unknown 09/26/2024 3:28 PM EST 09/26/2024 3:30 PM EST Marko Dickson MD POINT OF CARE TEST O RDERABLES [facility] [place] [address] * (ABNORMAL) Scan, Peripheral Blood (09/26/2024 2:39 PM EST) [facility] RBC Morphology Abnormal 09/26/2024 3:21 PM EST [facility] Platelet Estimate Normal Normal 09/26/2024 3:21 PM EST [facility] Microcyte 1-5 /HPF 09/26/2024 3:21 PM EST [facility] Platelet Clumps Present(A) (none) 3:21 PM EST [facility] WBC MORPHOLOGY See Comment(A) (none) 09/26/2024 3:21 PM EST [facility] Comment:Dohle BodiesToxic Gr anulation Blood VENOUS BLOOD SPECIMEN / Unknown Venipuncture / Unknown 09/26/2024 2:39 PM EST 09/26/2024 2:50 PM EST Marko Dickson MD HEMATOLOGY ORDERABLE S [facility] [place] [address] * ABORH RECHECK (PATIENT HISTORY FOUND) (09/26/2024 2:39 PM EST) [facility] ABORH Recheck Progress Complete 09/26/2024 5:01 PM EST [facility] Blood VENOUS BLOOD SPECIMEN / Unknown Venipuncture / Unknown 09/26/2024 2:39 PM EST 09/26/2024 2:56 PM EST Marko Dickson MD BLOOD BANK LAB ORDER RANDELL [facility] [place] [address] * (ABNORMAL) Hepatic Function Panel (09/26/2024 2:39 PM EST) [facility] Albumin 3.1(L) 3.2 - 5.2 g/dL 09/26/2024 4:23 PM EST [facility] Aspartate Aminotransferase 16 <=39 unit/L 09/26/2024 4:23 PM [facility] Alanine Aminotransferase 14 0 - 55 unit/L 09/26/2024 4:23 PM [facility] Alkaline Phosphatase 160(H) 40 - 130 unit/L 09/26/2024 4:23 PM [facility] Bilirubin, Total 0.4 <=1.3 mg/dL 09/26/2024 4:23 PM [facility] Bilirubin, Direct 0.2 0.0 - 0.3 mg/dL 09/26/2024 4:23 PM [facility] Protein, Total 7.0 6.1 - 8.0 g/dL 09/26/2024 4:23 PM [facility] Blood VENOUS BLOOD SPECIMEN / Unknown Venipuncture / Unknown 09/26/2024 2:39 PM EST 09/26/2024 2:50 PM EST Marko Dickson MD CHEMISTRY ORDERABLES [facility] [place] [address] * (ABNORMAL) Basic Metabolic Panel (09/26/2024 2:39 PM EST) Glucose 254(H) 65 - 199 mg/dL 09/26/2024 4:32 PM [facility] Comment:Glucose Concentratio n >=200 mg/dL plus symptoms is consistent with Diabetes Mellitus. Blood Urea Nitrogen 9(L) 10 - 20 mg/dL 09/26/2024 4:32 PM [facility] Creatinine 0.55(L) 0.80 - 1.50 mg/dL 09/26/2024 4:32 PM [facility] Sodium 127(L) 135 - 145 mMol/L 09/26/2024 4:32 PM [facility] Potassium 3.4(L) 3.5 - 5.0 mMol/L 09/26/2024 4:32 PM [facility] Chloride 89(L) 98 - 107 mMol/L 09/26/2024 4:32 PM [facility] Carbon Dioxide 25 22 - 31 mMol/L 09/26/2024 4:32 PM [facility] Anion Gap 13 5 - 15 mMol/L 09/26/2024 4:32 PM [facility] Calcium 8.9 8.5 - 10.5 mg/dL 09/26/2024 4:32 PM [facility] Est Glomerular Filtration Rate - Male 121 mL/min/1. 73 m?? 09/26/2024 4:32 PM [facility] [...] PM EST Hayley Torres MD CHEMISTRY ORDERABLES [facility] [place] [address] * (ABNORMAL) CBC (with Diff) (09/26/2024 2:39 PM EST) White Blood Cell 22.76(H) 4.00 - 9.50 x10(3)/mc L 09/26/2024 3:21 PM EST [facility] Red Blood Cell 4.20(L) 4.58 - 5.54 x10(6)/mc L 09/26/2024 3:21 PM [facility] Hemoglobin 12.3(L) 13.7 - 16.5 g/dL 09/26/2024 3:21 PM [facility] Hematocrit 35.0(L) 40.5 - 48.5 % 09/26/2024 3:21 PM [facility] Mean Cell Volume 83.3 82.9 - 93.1 fL 09/26/2024 3:21 PM [facility] Mean Cell Hemoglobin 29.3 27.5 - 32.1 pg 09/26/2024 3:21 PM [facility] Mean Cell Hemoglobin Concentration 35.1 32.0 - 35.7 g/dL 09/26/2024 3:21 PM [facility] Platelet 277 145 - 357 x10(3)/mc L 09/26/2024 3:21 PM [facility] Mean Platelet Volume 9.6 7.6 - 12.9 fL 09/26/2024 3:21 PM [facility] RDW Standard Deviation 37.9 36.0 - 45.0 fL 09/26/2024 3:21 PM [facility] RDW coefficient of variation 12.6 11.4 - 13.8 % 09/26/2024 3:21 PM [facility] NRBC% auto 0.0 % 09/26/2024 3:21 PM [facility] NRBC Absolute <0.01 <0.01 x10(3)/mc L 09/26/2024 3:21 PM [facility] Neutrophil % 84.0 % 09/26/2024 3:21 PM [facility] Comment:This is an appended report. These results have been appended to a previously preliminary verified report. Neutrophil Absolute (ANC) - Automated 19.10(H) 1.70 - 6.10 x10(3)/mc L 09/26/2024 3:21 PM [facility] Comment:This is an appended report. These results have been appended to a previously preliminary verified report. Lymph % 6.2 % 09/26/2024 3:21 PM [facility] Comment:This is an appended report. These results have been appended to a previously preliminary verified report. Lymph Absolute 1.41 0.90 - 3.20 x10(3)/mc L 09/26/2024 3:21 PM [facility] Comment:This is an appended report. These results have been appended to a previously preliminary verified report. Monocyte % 8.1 % 09/26/2024 3:21 PM [facility] Comment:This is an appended report. These results have been appended to a previously preliminary verified report. Monocyte Absolute 1.85(H) 0.30 - 0.90 x10(3)/mc L 09/26/2024 3:21 PM [facility] Comment:This is an appended report. These results have been appended to a previously preliminary verified report. Eos % 0.0 % 09/26/2024 3:21 PM [facility] Comment:This is an appended report. These results have been appended to a previously preliminary verified report. Eos Absolute <0.04 0.00 - 0.40 x10(3)/mc L 09/26/2024 3:21 PM [facility] Comment:This is an appended report. These results have been appended to a previously preliminary verified report. Basophil % 0.5 % 09/26/2024 3:21 PM [facility] Comment:This is an appended report. These results have been appended to a previously preliminary verified report. Baso Absolute 0.11(H) 0.00 - 0.10 x10(3)/mc L 09/26/2024 3:21 PM [facility] Comment:This is an appended report. These results have been appended to a previously preliminary verified report. Immature Gran % 1.2 % 3:21 PM [facility] Comment:This is an appended report. These results have been appended to a previously preliminary verified report. Immature Gran Absolute 0.28(H) 0.00 - 0.04 x10(3)/mc L 09/26/2024 3:21 PM EST [facility] Comment:This is an appended report. These results have been appended to a previously preliminary verified report. Blood VENOUS BLOOD SPECIMEN / Unknown Venipuncture / Unknown 09/26/2024 2:39 PM EST 09/26/2024 2:50 PM EST Hayley Torres MD HEMATOLOGY ORDERABLE S [facility] [place] [address] * Phosphorus (09/26/2024 2:39 PM EST) Phosphorus 3.2 2.5 - 4.5 mg/dL 09/26/2024 4:05 PM EST [facility] Blood VENOUS BLOOD SPECIMEN / Unknown Venipuncture / Unknown 09/26/2024 2:39 PM EST 09/26/2024 2:50 PM EST Marko Dickson MD CHEMISTRY ORDERABLES Performing Organization Address City/[facility]/ZIP Co de Phone Number [facility] [place] [address] * (ABNORMAL) Magnesium (09/26/2024 2:39 PM EST) Magnesium 0.65(L) 0.69 - 1.07 mMol/L 09/26/2024 4:05 PM EST [facility] Blood VENOUS BLOOD SPECIMEN / Unknown Venipuncture / Unknown 09/26/2024 2:39 PM EST 09/26/2024 2:50 PM EST Marko Dickson MD CHEMISTRY ORDERABLES Performing Organization Address City/[facility]/ZIP Co de Phone Number [facility] [place] [address] * Type and screen ([facility]/BABITA) (09/26/2024 2:39 PM EST) ABORH Type A POSITIVE 09/26/2024 3:45 PM EST [facility] PATIENT HISTORY Found 09/26/2024 3:45 PM EST [facility] Expires at [id number] on: 09/29/2024 09/26/2024 3:45 PM EST [facility] ANTIBODY SCREEN AUTOMATED Negative 09/26/2024 3:45 PM EST [facility] T&S only valid at [facility] 09/26/2024 3:45 PM EST [facility] Blood VENOUS BLOOD SPECIMEN / Unknown Venipuncture / Unknown 09/26/2024 2:39 PM EST 09/26/2024 2:56 PM EST Narrative [facility] - 09/26/2024 3:45 PM EST This Type and Screen result is only valid at the [facility] Marko Dickson MD BLOOD BANK LAB ORDER RANDELL Performing Organization Address City/[facility]/ZIP Co de Phone Number [facility] [place] [address] * (ABNORMAL) Fibrinogen (09/26/2024 2:39 PM EST) Fibrinogen >1,000(H) 200 - 393 mg/dL 09/26/2024 3:09 PM EST [facility] Comment: A fibrinogen level >100 mg/dL is adequate for hemostasis in most patients without underlying bleeding disorders. Blood VENOUS BLOOD SPECIMEN / Unknown Venipuncture / Unknown 09/26/2024 2:39 PM EST 09/26/2024 2:50 PM EST Marko Dickson MD HEMATOLOGY ORDERABLE S [facility] [place] [address] * APTT (09/26/2024 2:39 PM EST) Partial Thromboplastin Time 36 25 - 37 sec 09/26/2024 3:09 PM EST [facility] Comment: The PTT is NOT appropriate for heparin monitoring. Use the Anti-Xa level for heparin monitoring (HEP UFH) or LMWH monitoring (HEP LMW). A PTT less than 37 seconds generally indicates adequate hemostasis. Blood VENOUS BLOOD SPECIMEN / Unknown Venipuncture / Unknown 09/26/2024 2:39 PM EST 09/26/2024 2:50 PM EST Marko Dickson MD HEMATOLOGY ORDERABLE S Performing Organization Address [facility] Co de Phone Number [facility] [place] [address] * (ABNORMAL) Prothrombin Time (09/26/2024 2:39 PM EST) Prothrombin Time 21.6(H) 9.4 - 12.5 sec 09/26/2024 3:09 PM EST [facility] International Normalization Ratio 1.9 <=4.9 09/26/2024 3:09 PM EST [facility] Comment: An INR < [...] MD HEMATOLOGY ORDERABLE S Performing Organization Address City/[facility] Co de Phone Number [facility] [place] [address] * (ABNORMAL) POC, GLUCOSE (09/26/2024 2:36 PM EST) Glucometer, POC 268(H) 65 - 199 mg/dL 09/26/2024 2:36 PM EST [facility] Comment:Supplemental ranges: <140 mg/dL before meals <180 mg/dL all other times of the day. Blood CAPILLARY BLOOD / Unknown 09/26/2024 2:36 PM EST 09/26/2024 2:36 PM EST Marko Dickson MD POINT OF CARE TEST O RDERABLES Performing Organization Address City/[facility]/ZIP Co de Phone Number [facility] [place] [address] * (ABNORMAL) Blood culture (09/26/2024 2:22 PM EST) Blood Culture Methicillin Resistant Staphylococcus aureus(Critical) VITEK 2 METHOD 10/07/2024 7:40 AM EST [facility] Comment: detected by PCR Isolate saved. If future testing is required, contact the Microbiology Chip Person. Gram Stain Aerobic Bottle: Gram positive cocci in clusters(Critical ) 10/07/2024 7:40 AM EST [facility] Blood VENOUS BLOOD SPECIMEN [...] Marko Dickson MD MICROBIOLOGY - BLOOD ORDERABLES [facility] [place] [address] * Request For 2nd Read CT Lower Extremity (09/26/2024 1:50 PM EST) WORKSTATION ID [id number] DH RAD Anatomical Region Laterality Modality Hip, [...] who have questions please contact the health lawn care specialist that requested your imaging first. ? Electronically signed by: Lisette Bruno MD, [facility] ([phone]), at 09/26/2024 3:01 PM Narrative 09/26/2024 3:01 PM EST EXAMINATION: REQUEST FOR 2ND READ CT LOWER EXTREMITY CLINICAL HISTORY: Pt s/p LLE femoral-below knee popliteal bypass with PTFE graft, c/f infection surrounding graft, en route to [facility] for possible vascular surgery intervention; Sending Institution [facility]; Date of exam [id number]; I believe [...] series 3, image 8 and 641, 652, 184, 212. No other rim-enhancing fluid collection is seen. [...] surrounding graft, en route to [facility] [place] possible[facility] surgery intervention; Sending Institution [facility]; Date of exam [id number]; Ibelieve a [...] patients who have questions please contactthe health lawn care specialist that requested your imaging first. Marko Dickson [...] Oral, 3 TIMES DAILY, First dose on 09/26/24 at 1630, Until Discontinued, Routine Given 10/10/2024 4:3 2 PM EST 20 mg Given 10/10/2024 11:07 AM EST 20 mg Given 10/10/2024 7:02 AM EST 20 mg metoprolol succinate XL (Toprol-XL) tablet 25 mg 25 mg, Oral, DAILY, First dose on 10/01/24 at 0900, Until Discontinued, DO NOT CRUSH [...] on 10/07/24 at 0915, Until Discontinued, Routine Given 10/10/2024 8:31 AM EST 3 table ts Given 10/08/2024 8:29 PM EST 3 tablets Given 10/08/2024 8:56 AM EST 3 tablets vancomycin (Vancocin) injection PRN, Starting on Wed09/27/24 at 1706, Until Wed09/27/24 at 1829, Intra-Operative (Intra-Procedure), Routine Given 09/27/2024 5:06 PM EST 1 g 19- Surgical Site venlafaxine XR (Effexor-XR) capsule 225 mg 225 [...] Tracey RN) 0035 (Given - Provider: Jordyn Navas, DAVID)0616 (Given - Provider: Jordyn Navas RN)1222 (Given - Provider: Indira Tracey RN)1708 (Given - Provider: Jeana Cabrera LPN) 0032 (Given - Provider: Lauren Zavala RN)0604 (Given - Provider: Lauren Zavala RN)1107 (Given - Provider: Terell Araiza, DAVID) aspirin EC tablet 81 mg 81 [...] Hernandez 2156 (New Bag - Provider: Jordyn Navas, DAVID)2226 (Stopped - Provider: Jordyn Navas RN) 2115 [...] appropriate choice: ID Approval by Amaya Hernandez 144 (New Bag - Provider: Terell Araiza RN)151 (Stopped - Provider: Terell Araiza RN) heparin (porcine) (5,000 units/1 mL) subcutaneous injection 5,000 Units 5,000 Units, Subcutaneous, EVERY 8 HOURS SCHEDULED, First dose on Wed09/26/24 at 2200, Until Discontinued, Routine 0604 (Given - Provider: Misael Bo RN)142 (Given - Provider: Indira Tracey RN)2156 (Given - Provider: Jordyn Navas RN) 06 (Given - Provider: Jordyn Navas RN)141 (Given - Provider: Indira Tracey, DAVID)2115 (Given - Provider: Lauren Zavala, DAVID) 06 (Given - Provider: Lauren Zavala, DAVID)144 (Given - Provider: Terell Araiza RN) insulin [...] Zavala RN) 0834 (Given - Provider: Terell Araiza RN) [...] Provider: Indira Tracey RN)2030 (Given - Provider: oJrdyn Navas RN) 0035 (Given - Provider: Jordyn [...] 0832 (Given - Provider: Terell Araiza, DAVID) magnesium oxide (Mag-Ox) tablet 400 mg 400 mg, Oral, 2 TIMES DAILY, First dose on Wed09/30/24 at 1200, Until Discontinued, Routine 0900 (Given - Provider: Indira Tracey RN)2027 (Given - Provider: Jordyn Navas RN) 09 (Given - Provider: Jaja Diallo RN)2022 (Given - Provider: Lauren Zavala RN) 0831 (Given - Provider: Terell Araiza, DAVID) melatonin tablet 3 mg 3 mg, Oral, NIGHTLY, First dose on Wed10/02/24 at 0015, Until Discontinued, Routine 2027 (Given - Provider: Jordyn Navas RN) 2022 (Given - Provider: Lauren Zavala RN) methylphenidate (Ritalin) tablet 20 mg 20 mg, Oral, 3 TIMES DAILY, First dose on Wed09/26/24 at 1630, Until Discontinued, Routine 0856 (Given - Provider: Indira Tracey RN)1253 (Given - Provider: Indiar Tracey RN)1746 (Given - Provider: Indira Tracey RN - Comment: based on previous dose) 0637 (Given - Provider: Jrodyn Navas RN)1222 (Given - Provider: Indira Tracey [...] Patient/family refused) 0831 (Given - Provider: Terell Araiza, RN) venlafaxine XR (Effexor-XR) capsule 225 mg 225 mg, Oral, DAILY, First dose on Wed09/26/24 at 1600, Until Discontinued, DO NOT CRUSH OR OPEN, Routine 0859 (Given - Provider: Indira Tracey RN) 0902 (Given - Provider: Jaja Diallo RN) 0832 (Given - Provider: Terell Araiza, RN) PRN Medication Order 10/08/2024 10/09/2024 10/10/2024 [...] Routine documented in this encounter Care Teams Compliance Administrator Relationship Specialty Start Date End Date Charles Romero PA [address] [place] [address] PCP - General Internal Medicine 09/18/24 documented as of this encounter
--- OUTSIDE RECORDS SUMMARY | 2024-10-20 12:49 | XMS_ITS | Encounter Summary ---
Author Organization [facility] [place] [address] Care Team Providers Care Sewer Repairer Name Role Phone None Primary Care Provider Unavailabl e Encounter Details Date Type Department Care Team (Late st Contact Info) Description 08/28/2024 1:00 PM EDT Tech Visit [place] [address] Erick Jama [place] Critical limb ischemia of left lower extremity Social History Tobacco Use Types Packs/Day Years Used Date Smoking Tobacco: Every Day Cigarettes 12 02 Started: 12/28/1986; Last attempted to quit: 12/28/2011 Smokeless Tobacco: Never Alcohol Use Standard Drinks/Week Comments No 0 (1 standard drink = 0.6 oz pur e alcohol) [facility] Utilities Answer Date Recorded In the past 12 months has [facility] [employer], gas, oil, or water [employer] threatened to shut off services in your [...] any time in the past 12 m [facility], were you homeless or living [...] 10/23/2024 1:00 PM EST Appointment XRay at [address] [place] [address] Isabela Hayward, [facility] [place] [address] 11/09/2024 1:30 PM EST Office Visit Infectious [place] [address] Isabela Hayward [facility] [place] [address] 11/10/2024 10:00 AM EST Office Visit [place] [address] Dai Whitman APRN 11/21/2024 2:15 PM EST Office Visit [place] [address] Dayanara Grover MD [facility] [address] documented as of this encounter Procedures Procedure Name Priority Date/Time Associated Diagnosis Comments UNILATERAL BYPASS GRAFT ASSESS Routine 08/28/2024 12:55 PM EDT Critical limb ischemia of left lower extremity documented in this encounter Results * Unilat Bypass Graft Assess (08/28/2024 12:55 PM EDT) VB Text Report Department: Vascular Surgery Lab Patient: [id number] (GEOVANNA ARAYA) CPT: 76054 Referring Physician: DAGO SNIDER ?? Phone: Indications: [...] extremity documented in this encounter Care Teams Sewer Repairer Relationship Specialty Start Date End Date None None PCP - General 05/27/24 09/17/24 documented as of this encounter
--- OUTSIDE RECORDS SUMMARY | 2024-10-20 12:49 | XMS_ITS | Encounter Summary ---
Author Organization [facility] Address [facility] [place] [place] [address] Care Team Providers Care Heel Edge Inker Machine Name Role Phone None Primary Care Provider Unavailabl e Reason for Referral * Diagnostic Test (Routine) - New Request Specialty Diagnoses / Procedures Referred By Contac t Referred To Contact Diagnoses PAD (peripheral artery disease) Procedures ELEN, legs, multiple levels Marko Dickson MD [facility] [place] [address] [facility] [address] [place] [phone] Referral ID Status Reason Start Date Expiration Date Visits Requested Visits Authorized [id number] New Request Specialty Service Requested 4 08/28/2025 1 1 * Diagnostic Test (Routine) - Pending Review Specialty Diagnoses / Procedures Referred By Contac t Referred To Contact Diagnoses PAD (peripheral artery disease) Procedures Unilat Bypass Graft Assess Marko Dickson MD [facility] [place] [address] [facility] [address] [place] [phone] Referral ID Status Reason Start Date Expiration Date Visits Requested Visits Authorized [id number] Pending Review Specialty Service Requested 4 08/28/2025 1 1 Encounter Details Date Type Department Care Team (Late st Contact Info) Description 08/28/2024 2:00 PM EDT Office Visit Vascular Surgery at [facility] [address] Marko Dickson MD [facility] [place] [address] PAD (peripheral artery disease) Social History Tobacco Use Types Packs/Day Years Used Date Smoking Tobacco: Every Day Cigarettes 12 02 Started: 12/28/1986; Last attempted to quit: 12/28/2011 Smokeless Tobacco: Never Alcohol Use Standard Drinks/Week Comments No 0 (1 standard drink = 0.6 oz pur e alcohol) [facility] Utilities Answer Date Recorded In the [...] any time in the past 12 m [facility], were you homeless or living in a senior care (including now)? No 08/02/2024 [facility] Inpatient Questions Answer Date Recorded Does Anyone [...] 07/19/24 L 2nd amp (ERIC) 08/01/24 L GAS TURBINE POWERPLANT MECHANIC TEA, L GAS TURBINE POWERPLANT MECHANIC to BK pop with PTFE (ERIC) History [...] Text Report Department: Vascular Surgery Lab Patient: [id number] (GEOVANNA ARAYA) CPT: 79911 Referring Physician: DAGO SNIDER Phone: Indications: s/p [...] s/p L 2nd toe amp and L GAS TURBINE POWERPLANT MECHANIC TEA with GAS TURBINE POWERPLANT MECHANIC to BK Pop bypass with PTFE. - cont asa/xarelto - cont off loading shoe, and keeping foot clean and dry - sutures removed from 2nd toe amp site - f/u 6months with repeat duplex US documented in this encounter Plan of Treatment Upcoming Encounters Date Type Department Care Team (Late Contact Info) Description 10/23/2024 1:00 PM EST Appointment XRay at [address] [place] [phone] Isabela Hayward, [facility] [place] [address] 11/09/2024 1:30 PM EST Office Visit Infectious [place] [phone] Isabela Hayward, TRANSPORT ENGINEER [facility] [place] [address] 11/10/2024 10:00 AM EST Office Visit [place] [phone] Dai Whitman, RESHMA 11/21/2024 2:15 PM EST Office Visit [place] [phone] Dayanara Grover MD [facility] [place] [address] documented as of this encounter Visit Diagnoses Diagnosis PAD (peripheral artery disease) Peripheral vascular disease, unspecified documented in this encounter Care Teams Heel Edge Inker Machine Relationship Specialty Start Date End Date None None PCP - General 05/27/24 09/17/24 documented as of this encounter
--- OUTSIDE RECORDS SUMMARY | 2024-10-20 12:49 | XMS_ITS | Encounter Summary ---
Author Organization [facility] [address] Care Team Providers Care Military Communications Specialist Name Role Phone Charles Romero Primary Care [...] drink = 0.6 oz pur e alcohol) [facility] Utilities Answer Date Recorded In [...] in the past 12 m [facility], were you homeless or living in a fpc (including now)? No 08/02/2024 [facility] Inpatient Questions [...] 1:00 PM EST Appointment XRay at [address] [place] [phone] Isabela Hayward APRN [facility] [place] [address] 11/09/2024 1:30 PM EST Office Visit [place] [phone] Isabela Hayward APRN [facility] [place] [address] 11/10/2024 10:00 AM EST Office Visit [place] [phone] Dai Whitman APRN 11/21/2024 2:15 PM EST Office [place] [phone] Dayanara Grover MD [facility] ENDOCRINOLOGY DEPT [place] [phone] documented as of this encounter Visit Diagnoses Not on filedocumented in this encounter Care Teams Military Communications Specialist Relationship Specialty Start Date End Date Charles Romero PA [place] [address] PCP - General Internal Medicine 09/18/24 documented as of this encounter
--- OUTSIDE RECORDS SUMMARY | 2024-10-20 12:49 | XMS_ITS | Encounter Summary ---
Author Organization [facility] [place] [address] Care Team Providers Care Shape Hand Name Role Phone None Primary Care Provider Unavailabl e Encounter Details Date Type Department Care Team (Late st Contact Info) Description 09/06/2024 Telephone [place] [phone] Fallon Lemus RN Social History Tobacco Use Types Packs/Day Years Used Date Smoking Tobacco: Every Day Cigarettes 1 25 Started: 12/28/1986; Last attempted to quit: 12/28/2011 Smokeless Tobacco: Never Alcohol Use Standard Drinks/Week Comments No 0 (1 standard drink = 0.6 oz pur e alcohol) [facility] Utilities Answer Date Recorded In the past 12 months has [facility], gas, oil, or water [employer] threatened to shut off services in your [...] any time in the past 12 m [facility], were you homeless or living in a care home (including now)? No 08/02/2024 [facility] IPV [...] EDT Incoming call from Luis Enrique with [facility] reporting that 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 Luis Enrique reported there is a dry, yellowish brown scab over the area. No redness or drainage. Lux 5th toe nail has fungus growing under it. Luis Enrique reported he has advised Lux to see a sand carrier for care for the fifth toe nail. [...] any new orders would be faxed to [facility] at [phone]. Luis Enrique verbalized understanding. DAVID [facility] documented in this encounter Plan of Treatment Upcoming Encounters Date Type Department Care Team (Late st Contact Info) Description 10/23/2024 1:00 PM EST Appointment XRay at [address] [place] [address] Isabela Hayward, QUARANTINE INSPECTOR [facility] [place] [address] 11/09/2024 1:30 PM EST Office [place] [phone] Isabela Hayward, [facility] [place] [address] 11/10/2024 10:00 AM EST Office [place] [phone] Dai Whitman APRN 11/21/2024 2:15 PM EST Office [place] [phone] Dayanaar Grover MD [facility] [place] [address] documented as of this encounter Visit Diagnoses Not on filedocumented in this encounter Care Teams Shape Hand Relationship Specialty Start Date End Date None None PCP - General 05/27/24 09/17/24 documented as of this encounter
--- OUTSIDE RECORDS SUMMARY | 2024-10-20 12:49 | XMS_ITS | Encounter Summary ---
Author Organization [facility] Address [facility] Jean [place] [address] Care Team Providers Care Leather Leveler Name Role Phone Charles Romero Primary Care Provider + Encounter Details Date Type Department Care Team (Late st Contact Info) Description 09/26/2024 10:25 AM EST Ancillary Procedure Radiology Library at [facility] [place] [address] Marko Dickson MD [facility] [place] [address] Social History Tobacco Use Types Packs/Day Years [...] the past 12 m [facility], were you homeless or living in a chcf (including now)? No 09/27/2024 IPV Inpatient Questions [...] 1:00 PM EST Appointment XRay at [address] [place] [address] Isabela Hayward [facility] [employer] [place] [address] 11/09/2024 1:30 PM EST Office Visit [place] [address] Isabela Hayward APRN [facility] [place] [address] 11/10/2024 10:00 AM EST Office Visit [place] [address] Dai Whitman APRN 11/21/2024 2:15 PM EST Office Visit [place] [address] Dayanara Grover MD [facility] [place] [address] documented as of this encounter Procedures Procedure Name Priority Date/Time Associated Diagnosis Comments FILM LIBRARY STORAGE ONLY CT LOWER EXTREMITY Routine 09/26/2024 10:21 AM EST documented in this encounter Results * Film Library- Storage Only CT Lower Extremity (09/26/2024 10:21 AM EST) Narrative [facility] - 09/26/2024 10:21 AM EST This exam is auto-finalizing. It's purpose is for storage only. Marko Dickson MD IMG FILM LIBRARY ORD ERABLES Performing Organization Address City/State/[facility] Co de Phone Number [place], [place] documented in this encounter Visit Diagnoses Not on filedocumented in this encounter Care Teams Leather Leveler Relationship Specialty Start Date End Date Charles Romero [place] [address] PCP - General Internal Medicine 09/18/24 documented as of this encounter
--- OUTSIDE RECORDS SUMMARY | 2024-10-20 12:49 | XMS_ITS | Encounter Summary ---
[place] [address] Care Team Providers Care Policy Change Clerks Supervisor Name Role Phone None Primary Care Provider Unavailabl e Reason for Referral * Consultation (Urgent) - Duplicate Referral Specialty Diagnoses / Procedures Referred By Contac t Referred To Contact Cardiology Diagnoses Heart failure with mildly reduced ejection fraction (HFmrEF) Cardiomyopathy, unspecified type Hx of CABG S/P D/C - HFmrEF, Cardiomyopathy, Hx of CABG Viviana Resendiz APRN [facility] [place] [address] [facility] Cardiology [address] [place] [phone] Referral ID Status Reason Start Date Expiration Date Visits Requested Visits Authorized [id number] Duplicate Referral Consult, Test & Treat 4 08/29/2025 1 1 Encounter Details Date Type Department Care Team (Late st Contact Info) Description 08/29/2024 Orders [place] [address] Viviana Resendiz APRN [facility] [place] [address] Heart failure with mildly reduced ejection fraction (HFmrEF); Cardiomyopathy, unspecified type; Hx of CABG Social History Tobacco Use Types Packs/Day Years Used Date Smoking Tobacco: Every Day Cigarettes 12 02 Started: 12/28/1986; Last attempted to quit: 12/28/2011 Smokeless Tobacco: Never Alcohol Use Standard Drinks/Week Comments No 0 (1 standard drink = 0.6 oz pur e alcohol) [facility] Utilities Answer Date Recorded In [...] a group home (including now)? No 08/02/2024 IPV Inpatient [...] 1:00 PM EST Appointment XRay at [address] [place] [address] Isabela Hayward, RESHMA [facility] [place] [address] 11/09/2024 1:30 PM EST Office [place] [address] Isabela Hayward, [facility]ACKAGING [facility] [place] [address] 11/10/2024 10:00 AM EST Office [place] [address] Dai Whitman APRN 11/21/2024 2:15 PM EST Office [place] [address] Dayanara Grover MD [facility] [place] [address] Scheduled Referrals Name Type Priority Associated Diagnoses [...] status documented in this encounter Care Teams Policy Change Clerks Supervisor Relationship Specialty Start Date End Date None None PCP - General 05/27/24 09/17/24 documented as of this encounter
--- OUTSIDE RECORDS SUMMARY | 2024-10-20 12:49 | XMS_ITS | Encounter Summary ---
Author Organization [facility] [place] [address] Care Team Providers Care Blasting Helper Name Role Phone None Primary Care [...] = 0.6 oz pur e alcohol) [facility] Utilities Answer Date Recorded In the past [...] any time in the past 12 m [facility], were you homeless or living in a snf (including now)? No 08/02/2024 [facility] Inpatient Questions Answer Date Recorded Does Anyone [...] 1:00 PM EST Appointment XRay at [address] [place] [address] Isabela Hayward, [facility] [place] [address] 11/09/2024 1:30 PM EST Office [place] [phone] Isabela Hayward, [facility] [place] [address] 11/10/2024 10:00 AM EST Office [place] [address]1000 Dai Whitman APRN 11/21/2024 2:15 PM EST Office [place] [phone] Dayanara Grover MD [facility] [place] [address] documented as of this encounter Visit Diagnoses Not on filedocumented in this encounter Care Teams Blasting Helper Relationship Specialty Start Date End Date None None PCP - General 05/27/24 09/17/24 documented as of this encounter
--- OUTSIDE RECORDS SUMMARY | 2024-10-20 12:49 | XMS_ITS | Encounter Summary ---
Author Organization [facility] Address [facility] [place] [address] Care Team Providers Care Ui Developer With Angular Js Name Role Phone Charles Romero Primary Care Provider + Encounter Details Date Type Department Care Team (Late st Contact Info) Description 09/26/2024 Telephone [place] [address] Marko Dickson MD [facility] [place] [address] Social History Tobacco Use Types Packs/Day Years Used Date Smoking Tobacco: Every Day Cigarettes 1 25 Started: 12/28/1986; Last attempted to quit: 12/28/2011 Smokeless Tobacco: Never Alcohol Use Standard Drinks/Week Comments No 0 (1 standard drink = 0.6 oz pur e alcohol) [facility] Utilities Answer Date Recorded In the past 12 months has [employer], gas, oil, or water [employer] threatened to shut off services in your [...] in a custodial (including now)? No 09/27/2024 IPV Inpatient Questions [...] encounter Miscellaneous Notes * Telephone Encounter - Marko Dickson MD - 09/26/2024 10:44 AM EST Accepted phone call from transfer center and outside hospital. Patient presented febrile and tachycardic, CT LLE demonstrates fluid and air surrounded LLE PTFE bypass. Advised start patient on IV abx and I accepted here at [facility], advised to place in ICU and likely would need debridement/washout upon arrival, maintain npo status documented in this encounter Plan of Treatment Upcoming Encounters Date Type Department Care Team (Late st Contact Info) Description 10/23/2024 1:00 PM EST Appointment XRay at [address] [place] [address] Isabela Hayward, RESHMA [facility] INFECTIOUS DISEASE [place] [address] 11/09/2024 1:30 PM EST Office [place] [address] Isabela Hayward, DENTAL PROSTHETIST [facility] [place] [address] 11/10/2024 10:00 AM EST Office [place] [phone] Dai Whitman, RESHMA 11/21/2024 2:15 PM EST Office [place] [phone] Dayanara Grover MD [facility] [place] [address] documented as of this encounter Visit Diagnoses Not on filedocumented in this encounter Care Teams Ui Developer With Angular Js Relationship Specialty Start Date End Date Charles Romero PA Carlene [facility] [place] [address] PCP - General Internal Medicine 09/18/24 documented as of this encounter
--- OUTSIDE RECORDS SUMMARY | 2024-10-20 12:49 | XMS_ITS | Encounter Summary ---
Author Organization [facility] [place] [address] Care Team Providers Care Dairy Nutrition Consultant Name Role Phone Charles Romero Primary Care Provider + Reason for Visit * Auth/Cert (Routine) Specialty Diagnoses / Procedures Referred By William moses Referred To Contact Diagnoses Vascular graft infection, initial encounter Sepsis [A41.9] T82.7XXA Procedures EMERGENCY IPI Angel Gonsalez MD [facility] [place] [address] [facility] Referral ID Status Reason Start Date Expiration Date Visits Re quested Visits Authorized [id number] 1 1 Encounter Details Date Type Department Care Team (Late st Contact Info) Description 09/26/2024 3:22 PM EST - 09/26/2024 6:45 PM EST [place] [address] Hayley Torres MD [facility] [place] [address] EXCISION OF INFECTED GRAFT FROM LOWER EXTREMITY (WRVU 9.53) Social History Tobacco Use Types Packs/Day Years Used Date Smoking Tobacco: Every Day Cigarettes 1 25 Started: 12/28/1986; Last attempted to quit: 12/28/2011 Smokeless Tobacco: Never Alcohol Use Standard Drinks/Week Comments No 0 (1 standard drink = 0.6 oz pur e alcohol) [facility] Utilities Answer Date Recorded In [...] living in a fdc (including now)? No 09/27/2024 IPV Inpatient Questions [...] Pressure 130/83 09/26/2024 3:01 PM EST Pulse 98 09/26/2024 6:45 PM EST Temperature 37 ??C (98.6 ??F) 09/26/2024 6:35 PM EST Respiratory Rate 19 09/26/2024 6:45 PM EST Oxygen Saturation 96% 09/26/2024 6:45 PM EST Inhaled Oxygen Concentration - - Weight 103.8 kg (228 lb 13.4 oz) 09/26/2024 2:36 PM EST Height 179.1 cm (5' 10.51) 09/26/2024 [...] Operations/Major Procedures: 09/26/24: Explant of infected LEFT HOSPITAL SECURITY OFFICER to below-knee popliteal artery PTFE bypass graft [...] 2nd toe amputation who was transferred from [facility] given concern for infected left fem-BK [...] pericardial patch and PTFE willard over the HOSPITAL SECURITY OFFICER was unincorporated. - Resection of prior femoral [...] Sartorius flap healthy and starting to adhere. [place] drains removed with replacement of 15 Fr [...] juice or regular (not diet) soda 6 [place] small box of raisins 4 glucose tablets [...] 2 tablespoons of dried fruit. Milk and un-oqwlg-xmmjv yogurt have 15 grams of carbs in a serving. A serving is 1 cup of milk or 3/4 cup (6 oz) of tb-rodnq-awwqm yogurt. Starchy vegetables have 15 grams of carbs in a serving. A serving is ?? cup of mashed potatoes or sweet potato; 1 cup winter squash; ?? of a small baked potato; ?? cup of cooked beans; or ?? cup cooked corn or green peas. Learn how much carbs to eat each day and at each meal. A dietitian or certified teacher assistant can teach you how to keep track [...] was scheduled for a f/u nutrition evaluation. Ventilation Mechanic met pt at bedside. Pt sharedthat his [...] and follow. Physical Therapy: 10/09/24: Assessment: Geovanna iDxon Jr. is hospital day #13 s/p multiple [...] Based on current findings- home (sister & aqhfhrb-to-cxt's home) Consult Recommendations: No other consults recommended [...] Loss: None Karolyn Hudson MD Vascular Surgery, 2557 10/09/24 Important Studies and Lab Data: Labs: [...] 05/29/2024, no significant changes. Procedure Limited - 83315. Doppler - 67384. Color Doppler - 83086. Suboptimal quality. This study is limited because [...] on series 3, image 8 and 641, 132, 474, 422. No other rim-enhancing fluid collection is [...] wedged between the vastus medialis and adductor Aquilla muscle. This tracks into the popliteal fossa [...] PM Isabela Hayward APRN Infectious Disease at [facility] Arrive at: Home [phone] To view instructions for your video visit, click here, or visit this website: [email or web address] If you have not previously downloaded the [facility] patient portal software, [employer], please do so by clicking one of the links below or searching in your device's lobito store. [employer] devices 11/09/2024 1:30 PM Isabela Hayward APRN Infectious Disease at [facility] Arrive at: [place] [phone] 11/21/2024 2:15 PM Dayanara Grover MD Endocrinology at [facility] Arrive at: [place] 3A [phone] Future Orders Complete By Expires CBC (with Diff) [KYK557 Custom] 10/17/2024 12/11/2024 Process Instructions: INCLUDES: WBC, RBC, Hgb, Hct, Platelets, RBC Indices and Differential Scheduling Instructions: Comments: Questions: OPAT: Order / Recommendation for Post Discharge IV Antibiotic Management [EOL299 CPT(R)] As directed Process Instructions: If no progress note charted, please enter Clinical details in comments. Scheduling Instructions: Comments: - If this order was signed greater than 72 hours prior to [facility] discharge, please call to confirm the accuracy of this order. Please Fax all results to: OPAT Program Infectious Disease Section [facility], [place] [address] FAX: - After hours, please contact the Infectious Disease Physician extension worker at . - Line care instructions - see flush/heparin orders. Facilities may follow organizational policies/practices regarding heparin. - nursing home for medication administration/syrup blender and catheter care/maintenance authorized. - CVC/PICC Dressing Change weekly and PRN Please use CHG or Bio Patch RN: Please care for PICC line including dressing changes weekly and prn. Please draw labs every Wednesday and PRN and [facility] [phone]. Please draw labs off PICC line. [facility]. Please RN visit for IV ABX teaching and ongoing assessment. [facility] for Medication Administration/Hookup and catheter care/maintenance: - Teach Patient/Caregiver goals/self-monitoring/therapy administration to independence per the Nursing Care Plan. - nursing home visit frequency; initial, weekly and 2 [...] Amaya Hernandez MD Referral for Outpatient Antibiotics [RQN5427 CPT(R)] As directed Process Instructions: Scheduling Instructions: [...] Jr. for admission to Home Health. [address] [facility] [address] Phone Number: [phone] (home) Date of : 1975 Inpatient DOCUMENTATION FOR VNA SERVICES (INCLUDING THOSE PATIENTS WITH MEDICARE COVERAGE REQUIRING HOME VNA SERVICES AND/OR HOSPICE SERVICES) PATIENT'S LOCATION: Geovanna Dixon Jr. [address] [facility] [address] [phone] (home) Cell: Telephone Information: Scrub Wheel Operator's Name: Geovanna In discussion with the attending physician, it is certified that this patient is under their care and that they, or a Nurse Practitioner, Clinical Nurse specialist or Physician Head Of English who is working directly with them, had [...] for managing ADLs. HOME HEALTH CARE AGENCY: [facility]. [address] [place] [address] START OF CARE: within 24-48 hours of discharge Patient has Medicare Please note that any additional orders needs or changes will need to be obtained from this patient's PCP: JUSTIN Roberson [address] [facility] [address] . All VNA agencies which cover the area of patient's residence have been reviewed, either verbally or in writing, andpatient/family have chosen the home health care agency noted. Questions: Disciplines Requested: Nursing Physical Therapy Occupational Therapy Recurring Lab Work Interval Expires CBC (with Diff) [[id number] Custom] Once a week until 12/10/2024 12/10/2024 [...] For any problems or questions please call [phone] For issues on weeknights after 5pm and weekends please call [phone] and ask for the Vascular Fellow extension worker. Discharge Medications: Your Medications New Medications Dose [...] - See Instructions). FLUSH PROTOCOL WITH MEDICATIONS ([facility]): Before med infusion: flush with NS [...] - See Instructions). FLUSH PROTOCOL WITH MEDICATIONS ([facility]): Before med infusion: flush with NS [...] can get this completed at 3L at [facility] prior to your scheduled appointment. Stop atorvastatin [...] For any problems or questions please call [phone] For issues on weeknights after 5pm and weekends please call [phone] and ask for the Vascular Fellow extension worker. documented in this encounter Discharge Instructions * [...] 2 tablespoons of dried fruit. Milk and jm-npkwe-qadcq yogurt have 15 grams of carbs in a serving. A serving is 1 cup of milk or 3/4 cup (6 oz) of tk-lqdym-vlalh yogurt. Starchy vegetables have 15 grams of carbs in a serving. A serving is ?? cup of mashed potatoes or sweet potato; 1 cup winter squash; ?? of a small baked potato; ?? cup of cooked beans; or ?? cup cooked corn or green peas. Learn how much carbs to eat each day and at each meal. A dietitian or certified teacher assistant can teach you how to keep track [...] can get this completed at 3L at [facility] prior to your scheduled appointment. Stop atorvastatin [...] For any problems or questions please call [phone] For issues on weeknights after 5pm and weekends please call [phone] and ask for the Vascular Fellow extension worker. documented in this encounter Medications at Time [...] - See Instructions). FLUSH PROTOCOL WITH MEDICATIONS ([facility]): Before med infusion: flush with NS [...] - See Instructions). FLUSH PROTOCOL WITH MEDICATIONS ([facility]): Before med infusion: flush with NS [...] to contact. Reviewed roles and responsibilities of PROJECT CONSTRUCTION ASSISTANT MANAGER and infusion vendor. Contact information for ID and Vascular team/clinic, PROJECT CONSTRUCTION ASSISTANT MANAGER and infusion vendor given to pt. Discussed f/u appointments in ID 5C clinic, telephone and tele health. Pt verbalized understanding. All questions answered. IV & PO ABX Medications: Daptomycin 700mg IV daily Start/anticipated end date: 10/10/24-11/10/24 PROJECT CONSTRUCTION ASSISTANT MANAGER: [place] Infusion vendor: [employer] [facility] IV Access: 4 Fr. single lumen [...] [phone]* ASSESSMENT Geovanna Viet Dixon Jr. is a [...] 2 tablespoons of dried fruit. Milk and xo-tztol-qbajq yogurt have 15 grams of carbs in a serving. A serving is 1 cup of milk or 3/4 cup (6 oz) of la-dretr-miphq yogurt. Starchy vegetables have 15 grams of carbs in a serving. A serving is ?? cup of mashed potatoes or sweet potato; 1 cup winter squash; ?? of a small baked potato; ?? cup of cooked beans; or ?? cup cooked corn or green peas. Learn how much carbs to eat each day and at each meal. A dietitian or certified teacher assistant can teach you how to keep track [...] inpatient unit including nursing and primary team. Fabián Schmitz OT - 10/09/2024 3:33 PM EST Occupational Therapy Note Document Type: contact Total Minutes, Occupational Therapy: 8 Reason: Met with patient this afternoon, reports that he is independent in room with ADLs and has no concerns related to OT at this time. OT to complete orders. Pager: [phone] Fabián Burrows OT 10/09/2024 Occupational Therapy Rehabilitation [...] Loss: None Karolyn Hudson MD Vascular Surgery, 3302 10/09/24 * Terry Jimenez, PT - 10/09/2024 12:02 PM EST Physical Therapy Visit #2 Patient profile: Geovanna Dixon Jr. is a 49 y.o. male with a history of HTN, HLD, NSTEMI, CAD s/p CABG (12/2011), DM,obesity, PAD s/p L iliofem endart and L fem-BK pop bypass and L 2nd toe amputation who was transferred from [facility], 09/26/24 given concern for infected left fem-BK popliteal PTFE bypass. He is now s/p an explant of an infected left femoral-below knee popliteal artery bypass graft (09/26), I/D groin abscess (09/27), L GSV harvest, vein patch angioplasty, L HOSPITAL SECURITY OFFICER and BK pop w/ sartorius flap L fem, I/D, 09/29 L sartorius flap revision, vac change. 10/03/24 NPO at [facility] for OR wound exploration. Wound vac [...] He mentions he'll stay with sister and jjetmtq-tl-sof upon DC. Pt resting in bed upon [...] up with R and down with L, rsfo-xw-ziqy. Balance: Sitting: NORMAL- EOB unsupported good postural [...] Based on current findings- home (sister & zosdtjd-it-hmz's home) Consult Recommendations: No other consults recommended [...] 15 (TE-F) minutes TERRY JIMENEZ PT Pager: [phone] Physical Therapy Inpatient Rehabilitation Department * María Carranza, [place] - 10/09/2024 11:14 AM EST Images from the original note were not included. Vascular Surgery Progress Note Geovanna Dixon Jr. is a 49 y.o. 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 He presented to [facility] on 09/26 and went to the OR [...] Procedure Component Value - Date/Time Blood culture [[id number]] (Abnormal) (Susceptibility) Collected: 09/26/24 1422 Lab Status: Edited Result - FINAL Specimen: Blood, Venous Updated: 10/07/24 0740 Blood Culture Methicillin Resistant Staphylococcus aureus Comment: detected by PCR Isolate saved. If future testing is required, contact the Microbiology Residence Counselor. Gram Stain Aerobic Bottle: Gram positive cocci in clusters Susceptibility Methicillin Resistant Staphylococcus aureus MINIMUM INHIBITORY CONCENTRATION VITEK 2 METHOD Clindamycin Resistant Daptomycin Susceptible Gentamicin Susceptible [1] Linezolid Susceptible Oxacillin Resistant Trimethoprim/Sulfa Susceptible Vancomycin Susceptible [1] Gentamicin is not appropriate for monotherapy for gram-positive infections. AFB culture [[id number]] Collected: 09/27/24 1654 Lab Status: Preliminary result Specimen: Tissue from Thigh, Left Updated: 10/05/24 1201 Acid Fast Bacilli Culture No acid fast bacilli isolated at 1 week. Acid Fast Stain No acid fast bacilli seen Blood culture [[id number]] Collected: 09/29/242123 Lab Status: Final result Specimen: Blood, Venous Updated: 10/04/24 2301 Blood Culture No growth at 120 hours Blood culture [[id number]] Collected: 09/29/242123 Lab Status: Final result Specimen: Blood, Venous Updated: 10/04/24 2301 Blood Culture No growth at 120 hours AFB culture [[id number]] Collected: 09/26/24 1702 Lab Status: Preliminary result Specimen: Abscess from Knee, Left Updated: 10/04/24 1201 Acid Fast Bacilli Culture No acid fast bacilli isolated at 1 week. Acid Fast Stain No acid fast bacilli seen Blood culture [[id number]] Collected: 09/28/24 1749 Lab Status: Final result [...] 2nd toe amputation who was transferred from [facility] given concern for infected left fem-BK popliteal PTFE bypass. He is now s/p an explantof an infected left femoral-below knee popliteal artery bypass graft (09/26), I/D groin abscess (), L GSV harvest, vein patch angioplasty, L HOSPITAL SECURITY OFFICER and BK pop w/ sartorius flap L fem, I/D, 09/29 L sartorius flap revision, vac change. 10/09/24: Progressing well post surgically. Will pull medial thigh drain today, retain sartorius flap drain along with wound vac x 3 sponges ([facility] has approved for home vac) and WTD [...] PRN PICC dressing change completed as per [facility] protocol. Positive pressure displacement connector (Max Plus) [...] 2nd toe amputation who was transferred from [facility] given concern for infected left fem-BK [...] smoking 1 week ago. He presented to [facility] on 09/26 and went to the OR [...] Procedure Component Value - Date/Time Blood culture [[id number]] (Abnormal) (Susceptibility) Collected: 09/26/24 1422 Lab Status: Edited Result - FINAL Specimen: Blood, Venous Updated: 10/07/24 0740 Blood Culture Methicillin Resistant Staphylococcus aureus Comment: detected by PCR Isolate saved. If future testing is required, contact the Microbiology Residence Counselor. Gram Stain Aerobic Bottle: Gram positive cocci in clusters Susceptibility Methicillin Resistant Staphylococcus aureus MINIMUM INHIBITORY CONCENTRATION VITEK 2 METHOD Clindamycin Resistant Daptomycin Susceptible Gentamicin Susceptible [1] Linezolid Susceptible Oxacillin Resistant Trimethoprim/Sulfa Susceptible Vancomycin Susceptible [1] Gentamicin is not appropriate for monotherapy for gram-positive infections. AFB culture [[id number]] Collected: 09/27/24 165 Lab Status: Preliminary result Specimen: Tissue from Thigh, Left Updated: 10/05/24 1201 Acid Fast Bacilli Culture No acid fast bacilli isolated at 1 week. Acid Fast Stain No acid fast bacilli seen Blood culture [[id number]] Collected: 09/29/242123 Lab Status: Final result Specimen: Blood, Venous Updated: 10/04/24 2301 Blood Culture No growth at 120 hours Blood culture [[id number]] Collected: 09/29/242123 Lab Status: Final result Specimen: Blood, Venous Updated: 10/04/24 2301 Blood Culture No growth at 120 hours AFB culture [[id number]] Collected: 09/26/24 1702 Lab Status: Preliminary result Specimen: Abscess from Knee, Left Updated: 10/04/24 1201 Acid Fast Bacilli Culture No acid fast bacilli isolated at 1 week. Acid Fast Stain No acid fast bacilli seen Blood culture [[id number]] Collected: 09/28/24 1749 Lab Status: Final result Specimen: Blood, Venous Updated: 10/03/24 1901 Blood Culture No growth at 120 hours Blood culture [[id number]] (Abnormal) Collected: 09/27/24 2133 Lab Status: Final result Specimen: Blood, Venous Updated: 10/02/24 0804 Blood Culture Methicillin Resistant Staphylococcus aureus Comment: Susceptibilities previously reported. Gram Stain Aerobic Bottle: Gram positive cocci in clusters Tissue Culture, Aerobic & Anaerobic [[id number]] Collected: 09/27/24 165 Lab Status: Final result Specimen: Tissue from Thigh, Left Updated: 10/01/24 1554 Narrative: The following orders were created for panel order Tissue Culture, Aerobic & Anaerobic. Procedure Abnormality Status --------- ------ Tissue Culture, Aerobic ...[[id number]] Anaerobic Culture[[id number]] Final result Please view results for these tests on the individual orders. Anaerobic Culture [[id number]] Collected: 09/27/241653 Lab Status: Final result Specimen: Tissue from Thigh, Left Updated: 10/01/24 1554 Anaerobic Culture No anaerobic organisms isolated Tissue Culture, Aerobic Only [[id number]] (Abnormal) (Susceptibility) Collected: 09/27/241653 Lab Status: Final [...] 2nd toe amputation who was transferred from [facility] given concern for infected left fem-BK popliteal PTFE bypass. He is now s/p an explantof an infected left femoral-below knee popliteal artery bypass graft (09/26), I/D groin abscess (), L GSV harvest, vein patch angioplasty, L HOSPITAL SECURITY OFFICER and BK pop w/ sartorius flap L [...] 81mg daily Vibha Benson APRN 10/08/2024 Pager: [phone] * Vibha Benson APRN - 10/07/2024 8:52 AM EST Images from the original note were not included. Vascular Surgery Progress Note Geovanna Dixon Jr. is a 49 y.o. 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 He presented to [facility] on 09/26 and went to the OR [...] Procedure Component Value - Date/Time Blood culture [[id number]] (Abnormal) (Susceptibility) Collected: 09/26/24 1422 Lab Status: Edited Result - FINAL Specimen: Blood, Venous Updated: 10/07/24 0740 Blood Culture Methicillin Resistant Staphylococcus aureus Comment: detected by PCR Isolate saved. If future testing is required, contact the Microbiology Residence Counselor. Gram Stain Aerobic Bottle: Gram positive cocci in clusters Susceptibility Methicillin Resistant Staphylococcus aureus MINIMUM INHIBITORY CONCENTRATION VITEK 2 METHOD Clindamycin Resistant Daptomycin Susceptible Gentamicin Susceptible [1] Linezolid Susceptible Oxacillin Resistant Trimethoprim/Sulfa Susceptible Vancomycin Susceptible [1] Gentamicin is not appropriate for monotherapy for gram-positive infections. AFB culture [[id number]] Collected: 09/27/24 165 Lab Status: Preliminary result Specimen: Tissue from Thigh, Left Updated: 10/05/24 1201 Acid Fast Bacilli Culture No acid fast bacilli isolated at 1 week. Acid Fast Stain No acid fast bacilli seen Blood culture [[id number]] Collected: 09/29/242123 Lab Status: Final result Specimen: Blood, Venous Updated: 10/04/24 2301 Blood Culture No growth at 120 hours Blood culture [[id number]] Collected: 09/29/242123 Lab Status: Final result Specimen: Blood, Venous Updated: 10/04/24 2301 Blood Culture No growth at 120 hours AFB culture [[id number]] Collected: 09/26/24 1702 Lab Status: Preliminary result Specimen: Abscess from Knee, Left Updated: 10/04/24 1201 Acid Fast Bacilli Culture No acid fast bacilli isolated at 1 week. Acid Fast Stain No acid fast bacilli seen Blood culture [[id number]] Collected: 09/28/24 1749 Lab Status: Final result Specimen: Blood, Venous Updated: 10/03/24 1901 Blood Culture No growth at 120 hours Blood culture [[id number]] (Abnormal) Collected: 09/27/24 2133 Lab Status: Final result Specimen: Blood, Venous Updated: 10/02/24 0804 Blood Culture Methicillin Resistant Staphylococcus aureus Comment: Susceptibilities previously reported. Gram Stain Aerobic Bottle: Gram positive cocci in clusters Tissue Culture, Aerobic & Anaerobic [[id number]] Collected: 09/27/24 165 Lab Status: Final result Specimen: Tissue from Thigh, Left Updated: 10/01/24 1554 Narrative: The following orders were created for panel order Tissue Culture, Aerobic & Anaerobic. Procedure Abnormality Status --------- ------ Tissue Culture, Aerobic ...[[id number]] Anaerobic Culture[[id number]] Final result Please view results for these tests on the individual orders. Anaerobic Culture [[id number]] Collected: 09/27/24 165 Lab Status: Final result Specimen: Tissue from Thigh, Left Updated: 10/01/24 155 Anaerobic Culture No anaerobic organisms isolated Tissue Culture, Aerobic Only [[id number]] (Abnormal) (Susceptibility) Collected: 09/27/24 165 Lab Status: [...] is considered susceptible to doxycycline. Blood culture [[id number]] (Abnormal) Collected: 09/26/24 1845 Lab Status: Final result Specimen: Blood, Venous Updated: 10/01/24 0658 Blood Culture Methicillin Resistant Staphylococcus aureus Comment: isolated. Susceptibilities previously reported. Gram Stain Aerobic Bottle: Gram positive cocci in clusters Abscess/Wound Aspirate Culture, Aerobic & Anaerobic [[id number]] (Abnormal) Collected: 09/26/241649 Lab Status: Final result Specimen: Abscess from Groin, Left Updated: 09/30/24 155 Narrative: The following orders were created for panel order Abscess/Wound Aspirate Culture, Aerobic & Anaerobic. Procedure Abnormality Status --------- ------ Abscess/Wound Aspirate C...[[id number]] Abnormal Final result Anaerobic Culture[[id number]] Final result Please view results for these tests on the individual orders. Anaerobic Culture [[id number]] Collected: 09/26/24 165 Lab Status: Final result Specimen: Abscess from Groin, Left Updated: 09/30/24 1551 Anaerobic Culture No anaerobic organisms isolated Abscess/Wound Aspirate Culture, Aerobic & Anaerobic [[id number]] (Abnormal) Collected: 09/26/24 1702 Lab Status: Final result Specimen: Abscess from Knee, Left Updated: 09/30/24 1551 Narrative: The following orders were created for panel order Abscess/Wound Aspirate Culture, Aerobic & Anaerobic. Procedure Abnormality Status --------- ------ Abscess/Wound Aspirate C...[[id number]] Abnormal Final result Anaerobic Culture[[id number]] Final result Please view results for these tests on the individual orders. Anaerobic Culture [[id number]] Collected: 09/26/24 1702 Lab Status: Final result Specimen: Abscess from Knee, Left Updated: 09/30/24 1551 Anaerobic Culture No anaerobic organisms isolated Sonicated Tissue/Implant Culture [[id number]] (Abnormal) Collected: 09/26/24 1716 Lab Status: Final result Specimen: Vascular Graft from Leg, Left Updated: 09/30/24 1349 Sonicated Tissue/Implant Culture Methicillin Resistant Staphylococcus aureus Comment: isolated from broth culture. Susceptibilities previously reported. Abscess/Wound Aspirate Culture, Aerobic Only [[id number]] (Abnormal) (Susceptibility) Collected: 09/26/24 1702 Lab Status: [...] to doxycycline. Abscess/Wound Aspirate Culture, Aerobic Only [[id number]] (Abnormal) (Susceptibility) Collected: 09/26/24 1650 Lab Status: [...] 2nd toe amputation who was transferred from [facility] given concern for infected left fem-BK popliteal PTFE bypass. He is now s/p an explantof an infected left femoral-below knee popliteal artery bypass graft (09/26), I/D groin abscess (), L GSV harvest, vein patch angioplasty, L [employer]ICER and BK pop w/ sartorius flap L [...] 81mg daily Vibha Benson APRN 10/07/2024 Pager: [phone] * Karina-Jessica Mcrae, PT - 10/06/2024 3:21 PM EST 10/06/24 1516 Evaluation & Treatment Document Type contact Comment, [...] 2nd toe amputation who was transferred from [facility] given concern for infected left fem-BK [...] smoking 1 week ago. He presented to [facility] on 09/26 and went to the OR [...] 772* 709* 670* Recent Labs 10/06/24 0003 10/04/240 10/04/24 0008 NA 139 140 138 K 4.3 3.9 4.4 CL 103 105 105 CO2 BUN 17 13 19 CREATININE 0.85 0.55* 0.56* PHOS 4.3 4.2 3.7 CALCIUM 8.8 9.0 8.7 Microbiology: Microbiology Results (last 7 days) Procedure Component Value - Date/Time AFB culture [[id number]] Collected: 09/27/241653 Lab Status: Preliminary result Specimen: Tissue from Thigh, Left Updated: 10/05/24 1201 Acid Fast Bacilli Culture No acid fast bacilli isolated at 1 week. Acid Fast Stain No acid fast bacilli seen Blood culture [[id number]] Collected: 09/29/242123 Lab Status: Final result Specimen: Blood, Venous Updated: 10/04/24 2301 Blood Culture No growth at 120 hours Blood culture [[id number]] Collected: 09/29/242123 Lab Status: Final result Specimen: Blood, Venous Updated: 10/04/24 2301 Blood Culture No growth at 120 hours AFB culture [[id number]] Collected: 09/26/24 170 Lab Status: Preliminary result Specimen: Abscess from Knee, Left Updated: 10/04/24 1201 Acid Fast Bacilli Culture No acid fast bacilli isolated at 1 week. Acid Fast Stain No acid fast bacilli seen Blood culture [[id number]] Collected: 09/28/24 1749 Lab Status: Final result Specimen: Blood, Venous Updated: 10/03/24 1901 Blood Culture No growth at 120 hours Blood culture [[id number]] (Abnormal) Collected: 09/27/242132 Lab Status: Final result Specimen: Blood, Venous Updated: 10/02/24 0804 Blood Culture Methicillin Resistant Staphylococcus aureus Comment: Susceptibilities previously reported. Gram Stain Aerobic Bottle: Gram positive cocci in clusters Tissue Culture, Aerobic & Anaerobic [[id number]] Collected: 09/27/241653 Lab Status: Final result Specimen: Tissue from Thigh, Left Updated: 10/01/24 1554 Narrative: The following orders were created for panel order Tissue Culture, Aerobic & Anaerobic. Procedure Abnormality Status --------- ------ Tissue Culture, Aerobic ...[[id number]] Anaerobic Culture[[id number]] Final result Please view results for these tests on the individual orders. Anaerobic Culture [[id number]] Collected: 09/27/241653 Lab Status: Final result Specimen: Tissue from Thigh, Left Updated: 10/01/24 155 Anaerobic Culture No anaerobic organisms isolated Tissue Culture, Aerobic Only [[id number]] (Abnormal) (Susceptibility) Collected: 09/27/24 1654 Lab Status: [...] is considered susceptible to doxycycline. Blood culture [[id number]] (Abnormal) (Susceptibility) Collected: 09/26/24 1422 Lab Status: Edited Specimen: Blood, Venous Updated: 10/01/24 0658 Blood Culture Methicillin Resistant Staphylococcus aureus Comment: detected by PCR Isolate saved. If future testing is required, contact the Microbiology Residence Counselor. Gram Stain Aerobic Bottle: Gram positive cocci in clusters Susceptibility Methicillin Resistant Staphylococcus aureus VITEK 2 METHOD Clindamycin Resistant Gentamicin Susceptible [1] Linezolid Susceptible Oxacillin Resistant Trimethoprim/Sulfa Susceptible Vancomycin Susceptible [1] Gentamicin is not appropriate for monotherapy for gram-positive infections. Blood culture [[id number]] (Abnormal) Collected: 09/26/24 1845 Lab Status: Final result Specimen: Blood, Venous Updated: 10/01/24 0658 Blood Culture Methicillin Resistant Staphylococcus aureus Comment: isolated. Susceptibilities previously reported. Gram Stain Aerobic Bottle: Gram positive cocci in clusters Abscess/Wound Aspirate Culture, Aerobic & Anaerobic [[id number]] (Abnormal) Collected: 09/26/24 165 Lab Status: Final result Specimen: Abscess from Groin, Left Updated: 09/30/24 1551 Narrative: The following orders were created for panel order Abscess/Wound Aspirate Culture, Aerobic & Anaerobic. Procedure Abnormality Status --------- ------ Abscess/Wound Aspirate C...[[id number]] Abnormal Final result Anaerobic Culture[[id number]] Final result Please view results for these tests on the individual orders. Anaerobic Culture [[id number]] Collected: 09/26/24 165 Lab Status: Final result Specimen: Abscess from Groin, Left Updated: 09/30/24 1551 Anaerobic Culture No anaerobic organisms isolated Abscess/Wound Aspirate Culture, Aerobic & Anaerobic [[id number]] (Abnormal) Collected: 09/26/24 1702 Lab Status: Final result Specimen: Abscess from Knee, Left Updated: 09/30/24 1551 Narrative: The following orders were created for panel order Abscess/Wound Aspirate Culture, Aerobic & Anaerobic. Procedure Abnormality Status --------- ------ Abscess/Wound Aspirate C...[[id number]] Abnormal Final result Anaerobic Culture[[id number]] Final result Please view results for these tests on the individual orders. Anaerobic Culture [[id number]] Collected: 09/26/24 1702 Lab Status: Final result Specimen: Abscess from Knee, Left Updated: 09/30/24 1551 Anaerobic Culture No anaerobic organisms isolated Sonicated Tissue/Implant Culture [[id number]] (Abnormal) Collected: 09/26/24 1716 Lab Status: Final result Specimen: Vascular Graft from Leg, Left Updated: 09/30/24 1349 Sonicated Tissue/Implant Culture Methicillin Resistant Staphylococcus aureus Comment: isolated from broth culture. Susceptibilities previously reported. Abscess/Wound Aspirate Culture, Aerobic Only [[id number]] (Abnormal) (Susceptibility) Collected: 09/26/24 1702 Lab Status: [...] to doxycycline. Abscess/Wound Aspirate Culture, Aerobic Only [[id number]] (Abnormal) (Susceptibility) Collected: 09/26/24 1650 Lab Status: [...] 2nd toe amputation who was transferred from [facility] given concern for infected left fem-BK popliteal PTFE bypass. He is now s/p an explantof an infected left femoral-below knee popliteal artery bypass graft (09/26), I/D groin abscess (), L GSV harvest, vein patch angioplasty, L [employer] and BK pop w/ sartorius flap L [...] 81mg daily Benjamin Iniguez MD 10/06/2024 Pager: [phone] * Benjamin Iniguez MD - 10/05/2024 7:42 AM EST Images from the original note were not included. Vascular Surgery Progress Note Geovanna Dixon Jr. is a 49 y.o. 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 He presented to [facility] on 09/26 and went to the OR [...] TID WC acetaminophen 975 mg Oral Q6H [facility] atorvastatin 80 mg Oral QPM aspirin EC 81 mg Oral Daily methylphenidate 20 mg Oral TID pantoprazole EC 40 mg Oral Daily senna-docusate 2 tablet Oral BID venlafaxine XR 225 mg Oral Daily heparin (porcine) 5,000 Units Subcutaneous Q8H [facility] lidocaine 1 patch Transdermal Q24H Operations this [...] Procedure Component Value - Date/Time Blood culture [[id number]] Collected: 09/29/242123 Lab Status: Final result Specimen: Blood, Venous Updated: 10/04/24 230 Blood Culture No growth at 120 hours Blood culture [[id number]] Collected: 09/29/242123 Lab Status: Final result Specimen: Blood, Venous Updated: 10/04/24 2301 Blood Culture No growth at 120 hours AFB culture [[id number]] Collected: 09/26/24 1702 Lab Status: Preliminary result Specimen: Abscess from Knee, Left Updated: 10/04/24 1201 Acid Fast Bacilli Culture No acid fast bacilli isolated at 1 week. Acid Fast Stain No acid fast bacilli seen Blood culture [[id number]] Collected: 09/28/24 1749 Lab Status: Final result Specimen: Blood, Venous Updated: 10/03/24 1901 Blood Culture No growth at 120 hours Blood culture [[id number]] (Abnormal) Collected: 09/27/242132 Lab Status: Final result Specimen: Blood, Venous Updated: 10/02/24 0804 Blood Culture Methicillin Resistant Staphylococcus aureus Comment: Susceptibilities previously reported. Gram Stain Aerobic Bottle: Gram positive cocci in clusters Tissue Culture, Aerobic & Anaerobic [[id number]] Collected: 09/27/241653 Lab Status: Final result Specimen: Tissue from Thigh, Left Updated: 10/01/24 1554 Narrative: The following orders were created for panel order Tissue Culture, Aerobic & Anaerobic. Procedure Abnormality Status --------- ------ Tissue Culture, Aerobic ...[[id number]] Anaerobic Culture[[id number]] Final result Please view results for these tests on the individual orders. Anaerobic Culture [[id number]] Collected: 09/27/241653 Lab Status: Final result Specimen: Tissue from Thigh, Left Updated: 10/01/24 1554 Anaerobic Culture No anaerobic organisms isolated Tissue Culture, Aerobic Only [[id number]] (Abnormal) (Susceptibility) Collected: 09/27/241653 Lab Status: Final [...] is considered susceptible to doxycycline. Blood culture [[id number]] (Abnormal) (Susceptibility) Collected: 09/26/24 1422 Lab Status: Final result Specimen: Blood, Venous Updated: 10/01/24 0658 Blood Culture Methicillin Resistant Staphylococcus aureus Comment: detected by PCR Isolate saved. If future testing is required, contact the Microbiology Residence Counselor. Gram Stain Aerobic Bottle: Gram positive cocci in clusters Susceptibility Methicillin Resistant Staphylococcus aureus VITEK 2 METHOD Clindamycin Resistant Gentamicin Susceptible [1] Linezolid Susceptible Oxacillin Resistant Trimethoprim/Sulfa Susceptible Vancomycin Susceptible [1] Gentamicin is not appropriate for monotherapy for gram-positive infections. Blood culture [[id number]] (Abnormal) Collected: 09/26/24 1845 Lab Status: Final result Specimen: Blood, Venous Updated: 10/01/24 0658 Blood Culture Methicillin Resistant Staphylococcus aureus Comment: isolated. Susceptibilities previously reported. Gram Stain Aerobic Bottle: Gram positive cocci in clusters Abscess/Wound Aspirate Culture, Aerobic & Anaerobic [[id number]] (Abnormal) Collected: 09/26/241649 Lab Status: Final result Specimen: Abscess from Groin, Left Updated: 09/30/24 1551 Narrative: The following orders were created for panel order Abscess/Wound Aspirate Culture, Aerobic & Anaerobic. Procedure Abnormality Status --------- ------ Abscess/Wound Aspirate C...[[id number]] Abnormal Final result Anaerobic Culture[[id number]] Final result Please view results for these tests on the individual orders. Anaerobic Culture [[id number]] Collected: 09/26/241649 Lab Status: Final result Specimen: Abscess from Groin, Left Updated: 09/30/24 1551 Anaerobic Culture No anaerobic organisms isolated Abscess/Wound Aspirate Culture, Aerobic & Anaerobic [[id number]] (Abnormal) Collected: 09/26/24 170 Lab Status: Final result Specimen: Abscess from Knee, Left Updated: 09/30/24 1551 Narrative: The following orders were created for panel order Abscess/Wound Aspirate Culture, Aerobic & Anaerobic. Procedure Abnormality Status --------- ------ Abscess/Wound Aspirate C...[[id number]] Abnormal Final result Anaerobic Culture[[id number]] Final result Please view results for these tests on the individual orders. Anaerobic Culture [[id number]] Collected: 09/26/24 170 Lab Status: Final result Specimen: Abscess from Knee, Left Updated: 09/30/24 1551 Anaerobic Culture No anaerobic organisms isolated Sonicated Tissue/Implant Culture [[id number]] (Abnormal) Collected: 09/26/24 1716 Lab Status: Final result Specimen: Vascular Graft from Leg, Left Updated: 09/30/24 1349 Sonicated Tissue/Implant Culture Methicillin Resistant Staphylococcus aureus Comment: isolated from broth culture. Susceptibilities previously reported. Abscess/Wound Aspirate Culture, Aerobic Only [[id number]] (Abnormal) (Susceptibility) Collected: 09/26/24 170 Lab Status: [...] to doxycycline. Abscess/Wound Aspirate Culture, Aerobic Only [[id number]] (Abnormal) (Susceptibility) Collected: 09/26/241649 Lab Status: Final [...] is considered susceptible to doxycycline. AFB culture [[id number]] Collected: 09/27/241653 Lab Status: Preliminary result Specimen: Tissue from Thigh, Left Updated: 09/29/24 1201 Acid Fast Bacilli Culture No acid fast bacilli isolated to date. Acid Fast Stain No acid fast bacilli seen Fungus culture [[id number]] Collected: 09/27/241653 Lab Status: Preliminary result Specimen: [...] 2nd toe amputation who was transferred from [facility] given concern for infected left fem-BK popliteal PTFE bypass. 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 Interval explant of LEFT femoral [...] valve. No significant valvular regurgitation. Impression: Geovanna Lizarraga Zack Winter is a 49-year-old male who underwent a left lower extremity cdhlwzq-eg-rzlmd-kneepopliteal artery bypass on August 01, 2024, and [...] concerns. Please page ID Green team (pager [phone]) with questions or concerns. Lynne Leavitt MD Fellow, Infectious Disease Pager: [phone] Epic Chat 10/02/2024 This note was created using Boardvote) voice recognition software. Associated attestation - Amaya [...] Procedure Component Value - Date/Time Blood culture [[id number]] Collected: 09/29/242123 Lab Status: Final result Specimen: Blood, Venous Updated: 10/04/24 2301 Blood Culture No growth at 120 hours Blood culture [[id number]] Collected: 09/29/242123 Lab Status: Final result Specimen: Blood, Venous Updated: 10/04/24 2301 Blood Culture No growth at 120 hours AFB culture [[id number]] Collected: 09/26/24 170 Lab Status: Preliminary result Specimen: Abscess from Knee, Left Updated: 10/04/24 120 Acid Fast Bacilli Culture No acid fast bacilli isolated at 1 week. Acid Fast Stain No acid fast bacilli seen Blood culture [[id number]] Collected: 09/28/24 1749 Lab Status: Final result Specimen: Blood, Venous Updated: 10/03/24 1901 Blood Culture No growth at 120 hours Blood culture [[id number]] (Abnormal) Collected: 09/27/242132 Lab Status: Final result Specimen: Blood, Venous Updated: 10/02/24 0804 Blood Culture Methicillin Resistant Staphylococcus aureus Comment: Susceptibilities previously reported. Gram Stain Aerobic Bottle: Gram positive cocci in clusters Tissue Culture, Aerobic & Anaerobic [[id number]] Collected: 09/27/241653 Lab Status: Final result Specimen: Tissue from Thigh, Left Updated: 10/01/24 155 Narrative: The following orders were created for panel order Tissue Culture, Aerobic & Anaerobic. Procedure Abnormality Status --------- ------ Tissue Culture, Aerobic ...[[id number]] Anaerobic Culture[[id number]] Final result Please view results for these tests on the individual orders. Anaerobic Culture [[id number]] Collected: 09/27/241653 Lab Status: Final result Specimen: Tissue from Thigh, Left Updated: 10/01/24 155 Anaerobic Culture No anaerobic organisms isolated Tissue Culture, Aerobic Only [[id number]] (Abnormal) (Susceptibility) Collected: 11/20/24 1654 Lab Status: [...] is considered susceptible to doxycycline. Blood culture [[id number]] (Abnormal) (Susceptibility) Collected: 09/26/24 1422 Lab Status: Final result Specimen: Blood, Venous Updated: 10/01/24 0658 Blood Culture Methicillin Resistant Staphylococcus aureus Comment: detected by PCR Isolate saved. If future testing is required, contact the Microbiology Residence Counselor. Gram Stain Aerobic Bottle: Gram positive cocci in clusters Susceptibility Methicillin Resistant Staphylococcus aureus VITEK 2 METHOD Clindamycin >=8.0 ug/ml Resistant Gentamicin <=0.5 ug/ml Susceptible [1] Linezolid 2.0 ug/ml Susceptible Oxacillin >=4.0 ug/ml Resistant Trimethoprim/Sulfa <=10.0 ug/ml Susceptible Vancomycin 1.0 ug/ml Susceptible [1] Gentamicin is not appropriate for monotherapy for gram-positive infections. Blood culture [[id number]] (Abnormal) Collected: 09/26/24 1845 Lab Status: Final result Specimen: Blood, Venous Updated: 10/01/24 0658 Blood Culture Methicillin Resistant Staphylococcus aureus Comment: isolated. Susceptibilities previously reported. Gram Stain Aerobic Bottle: Gram positive cocci in clusters Abscess/Wound Aspirate Culture, Aerobic & Anaerobic [[id number]] (Abnormal) Collected: 09/26/24 1650 Lab Status: Final result Specimen: Abscess from Groin, Left Updated: 09/30/24 1551 Narrative: The following orders were created for panel order Abscess/Wound Aspirate Culture, Aerobic & Anaerobic. Procedure Abnormality Status --------- ------ Abscess/Wound Aspirate C...[[id number]] Abnormal Final result Anaerobic Culture[[id number]] Final result Please view results for these tests on the individual orders. Anaerobic Culture [[id number]] Collected: 09/26/24 1650 Lab Status: Final result Specimen: Abscess from Groin, Left Updated: 09/30/24 1551 Anaerobic Culture No anaerobic organisms isolated Abscess/Wound Aspirate Culture, Aerobic & Anaerobic [[id number]] (Abnormal) Collected: 09/26/24 1702 Lab Status: Final result Specimen: Abscess from Knee, Left Updated: 09/30/24 1551 Narrative: The following orders were created for panel order Abscess/Wound Aspirate Culture, Aerobic & Anaerobic. Procedure Abnormality Status --------- ------ Abscess/Wound Aspirate C...[[id number]] Abnormal Final result Anaerobic Culture[[id number]] Final result Please view results for these tests on the individual orders. Anaerobic Culture [[id number]] Collected: 09/26/24 170 Lab Status: Final result Specimen: Abscess from Knee, Left Updated: 09/30/24 1551 Anaerobic Culture No anaerobic organisms isolated Sonicated Tissue/Implant Culture [[id number]] (Abnormal) Collected: 09/26/24 1716 Lab Status: Final result Specimen: Vascular Graft from Leg, Left Updated: 09/30/24 1349 Sonicated Tissue/Implant Culture Methicillin Resistant Staphylococcus aureus Comment: isolated from broth culture. Susceptibilities previously reported. Abscess/Wound Aspirate Culture, Aerobic Only [[id number]] (Abnormal) (Susceptibility) Collected: 09/26/24 1702 Lab Status: [...] to doxycycline. Abscess/Wound Aspirate Culture, Aerobic Only [[id number]] (Abnormal) (Susceptibility) Collected: 09/26/241649 Lab Status: Final [...] is considered susceptible to doxycycline. AFB culture [[id number]] Collected: 09/27/241653 Lab Status: Preliminary result Specimen: Tissue from Thigh, Left Updated: 09/29/24 1201 Acid Fast Bacilli Culture No acid fast bacilli isolated to date. Acid Fast Stain No acid fast bacilli seen Fungus culture [[id number]] Collected: 09/27/241653 Lab Status: Preliminary result Specimen: [...] for consulting infectious diseases. Amaya Hernandez MD, [facility] Infectious Diseases Staff Physician * [...] Diet NPO Monitoring: Q4 Fawn Cunningham APRN [facility] Endocrinology Diabetes Management Pager [phone] Weekends please page [phone] 35 minutes were spent over the course [...] 2nd toe amputation who was transferred from [facility] given concern for infected left fem-BK [...] smoking 1 week ago. He presented to [facility] on 09/26 and went to the OR [...] Daily heparin (porcine) 5,000 Units Subcutaneous Q8H [facility] lidocaine 1 patch Transdermal Q24H Operations this [...] 670* 693* 546* Recent Labs 10/04/24 0008 10/03/247 10/02/24 004 NA 138 136 138 K 4.4 4.1 3.9 CL 105 103 105 CO2 24 20* 23 BUN 19 15 11 CREATININE 0.56* 0.51* 0.49* PHOS 3.7 3.5 4.1 CALCIUM 8.7 8.4* 8.2* Microbiology: Microbiology Results (last 7 days) Procedure Component Value - Date/Time Blood culture [[id number]] Collected: 09/29/242123 Lab Status: Preliminary result Specimen: Blood, Venous Updated: 10/03/24 230 Blood Culture No growth at 96 hours Blood culture [[id number]] Collected: 09/29/242123 Lab Status: Preliminary result Specimen: Blood, Venous Updated: 10/03/24 2301 Blood Culture No growth at 96 hours Blood culture [[id number]] Collected: 09/28/24 1749 Lab Status: Final result Specimen: Blood, Venous Updated: 10/03/24 1901 Blood Culture No growth at 120 hours Blood culture [[id number]] (Abnormal) Collected: 09/27/24 213 Lab Status: Final result Specimen: Blood, Venous Updated: 10/02/24 0804 Blood Culture Methicillin Resistant Staphylococcus aureus Comment: Susceptibilities previously reported. Gram Stain Aerobic Bottle: Gram positive cocci in clusters Tissue Culture, Aerobic & Anaerobic [[id number]] Collected: 09/27/24 1654 Lab Status: Final result Specimen: Tissue from Thigh, Left Updated: 10/01/24 1554 Narrative: The following orders were created for panel order Tissue Culture, Aerobic & Anaerobic. Procedure Abnormality Status --------- ------ Tissue Culture, Aerobic ...[[id number]] Anaerobic Culture[[id number]] Final result Please view results for these tests on the individual orders. Anaerobic Culture [[id number]] Collected: 09/27/24 165 Lab Status: Final result Specimen: Tissue from Thigh, Left Updated: 10/01/24 1554 Anaerobic Culture No anaerobic organisms isolated Tissue Culture, Aerobic Only [[id number]] (Abnormal) (Susceptibility) Collected: 09/27/24 165 Lab Status: [...] is considered susceptible to doxycycline. Blood culture [[id number]] (Abnormal) (Susceptibility) Collected: 09/26/24 1422 Lab Status: Final result Specimen: Blood, Venous Updated: 10/01/24 0658 Blood Culture Methicillin Resistant Staphylococcus aureus Comment: detected by PCR Isolate saved. If future testing is required, contact the Microbiology Residence Counselor. Gram Stain Aerobic Bottle: Gram positive cocci in clusters Susceptibility Methicillin Resistant Staphylococcus aureus VITEK 2 METHOD Clindamycin Resistant Gentamicin Susceptible [1] Linezolid Susceptible Oxacillin Resistant Trimethoprim/Sulfa Susceptible Vancomycin Susceptible [1] Gentamicin is not appropriate for monotherapy for gram-positive infections. Blood culture [[id number]] (Abnormal) Collected: 09/26/24 1845 Lab Status: Final result Specimen: Blood, Venous Updated: 10/01/24 0658 Blood Culture Methicillin Resistant Staphylococcus aureus Comment: isolated. Susceptibilities previously reported. Gram Stain Aerobic Bottle: Gram positive cocci in clusters Abscess/Wound Aspirate Culture, Aerobic & Anaerobic [[id number]] (Abnormal) Collected: 09/26/24 1650 Lab Status: Final result Specimen: Abscess from Groin, Left Updated: 09/30/24 1551 Narrative: The following orders were created for panel order Abscess/Wound Aspirate Culture, Aerobic & Anaerobic. Procedure Abnormality Status --------- ------ Abscess/Wound Aspirate C...[[id number]] Abnormal Final result Anaerobic Culture[[id number]] Final result Please view results for these tests on the individual orders. Anaerobic Culture [[id number]] Collected: 09/26/24 1650 Lab Status: Final result Specimen: Abscess from Groin, Left Updated: 09/30/24 1551 Anaerobic Culture No anaerobic organisms isolated Abscess/Wound Aspirate Culture, Aerobic & Anaerobic [[id number]] (Abnormal) Collected: 09/26/24 170 Lab Status: Final result Specimen: Abscess from Knee, Left Updated: 09/30/24 1551 Narrative: The following orders were created for panel order Abscess/Wound Aspirate Culture, Aerobic & Anaerobic. Procedure Abnormality Status --------- ------ Abscess/Wound Aspirate C...[[id number]] Abnormal Final result Anaerobic Culture[[id number]] Final result Please view results for these tests on the individual orders. Anaerobic Culture [[id number]] Collected: 09/26/24 1702 Lab Status: Final result Specimen: Abscess from Knee, Left Updated: 09/30/24 1551 Anaerobic Culture No anaerobic organisms isolated Sonicated Tissue/Implant Culture [[id number]] (Abnormal) Collected: 09/26/24 1716 Lab Status: Final result Specimen: Vascular Graft from Leg, Left Updated: 09/30/24 1349 Sonicated Tissue/Implant Culture Methicillin Resistant Staphylococcus aureus Comment: isolated from broth culture. Susceptibilities previously reported. Abscess/Wound Aspirate Culture, Aerobic Only [[id number]] (Abnormal) (Susceptibility) Collected: 09/26/24 1702 Lab Status: [...] to doxycycline. Abscess/Wound Aspirate Culture, Aerobic Only [[id number]] (Abnormal) (Susceptibility) Collected: 09/26/24 1650 Lab Status: [...] is considered susceptible to doxycycline. AFB culture [[id number]] Collected: 09/27/24 165 Lab Status: Preliminary result Specimen: Tissue from Thigh, Left Updated: 09/29/24 1201 Acid Fast Bacilli Culture No acid fast bacilli isolated to date. Acid Fast Stain No acid fast bacilli seen AFB culture [[id number]] Collected: 09/26/24 1702 Lab Status: Preliminary result Specimen: Abscess from Knee, Left Updated: 09/29/24 1201 Acid Fast Bacilli Culture No acid fast bacilli isolated to date. Acid Fast Stain No acid fast bacilli seen Fungus culture [[id number]] Collected: 09/27/24 165 Lab Status: Preliminary result Specimen: Tissue from Thigh, Left Updated: 09/28/24 0748 Fungus Culture No fungus isolated to date MRSA PCR Screen [[id number]] (Abnormal) Collected: 09/27/24 0751 Lab Status: Final result Specimen: Swab from Nares Updated: 09/27/24 1156 MRSA PCR Detected Narrative: This test was performed using the Xpert MRSA NxG test kit and is run on the [employer] GeneXpert Dx System. This test is cleared by the U.S. Food and Drug Administration for clinical use and its performance characteristics have been verified by the [facility] at [facility]. New Studies: - None Assessment & Plan: Geovanna Dixon Jr. is a 49 y.o. male with a history of HTN, HLD, NSTEMI, CAD s/p CABG (12/2011), DM,obesity, PAD s/p L iliofem endart and L fem-BK pop bypass and L 2nd toe amputation who was transferred from [facility] given concern for infected left fem-BK popliteal PTFE bypass. He is now s/p an explantof an infected left femoral-below knee popliteal artery bypass graft (09/26), I/D groin abscess (), L GSV harvest, vein patch angioplasty, L HOSPITAL SECURITY OFFICER and BK pop w/ sartorius flap L [...] 81mg daily Benjamin Iniguez MD 10/04/2024 Pager: [phone] Associated attestation - Hayley Torres MD - [...] was scheduled for a f/u nutrition evaluation. Ventilation Mechanic met pt at bedside. Pt sharedthat his [...] nausea and no vomiting Last Bowel Movement: (CLIENT RELATIONSHIP MANAGER- MD made aware) Patient education / questions: all nutrition related questions answered at this time Nutrition services to follow weekly through hospital course unless consulted in the interim. Linda [facility] * Jessica Renae, PT - 10/03/2024 11:30 AM EST Physical Therapy Evaluation Patient profile: Geovanna Dixon Jr. is a 49 y.o. male with a history of HTN, HLD, NSTEMI, CAD s/p CABG (12/2011), DM,obesity, PAD s/p L iliofem endart and L fem-BK pop bypass and L 2nd toe amputation who was transferred from [facility], 09/26/24 given concern for infected left fem-BK popliteal PTFE bypass. He is now s/p an explant of an infected left femoral-below knee popliteal artery bypass graft (09/26), I/D groin abscess (09/27), L GSV harvest, vein patch angioplasty, L HOSPITAL SECURITY OFFICER and BK pop w/ sartorius flap L fem, I/D, 09/29 L sartorius flap revision, vac change. 10/03/24 NPO at [facility] for OR wound exploration. Wound vac [...] not holding suction - Last Bowel Movement: (CLIENT RELATIONSHIP MANAGER) Patient with the following active problems: Past [...] TOVAR at [facility] MA[facility] OR PRO DEBRIDEMENT MUSCLE AND FASCIA 20 SQ CM/< Left 09/29/2024 DEBRIDEMENT SKIN, SUBCU, MUSCLE, LOWER EXTREMITY (WRVU 2.7) performed by Anabel Finney MD at [facility] MA[facility] OR PRO DEBRIDEMENT MUSCLE AND FASCIA 20 SQ CM/< Left 10/02/2024 DEBRIDEMENT SKIN, SUBCU, MUSCLE, LOWER EXTREMITY (WRVU 2.7) performed by Hermila Mccormick MDat [facility] OR PRO DEBRIDEMENT SUBCUTANEOUS TISSUE 20 SQCM/< Left 09/27/2024 DEBRIDEMENT SKIN AND SUBCU, LOWER EXTREMITY (WRVU 1.01) performed by Hayley Torres MD at [facility] OR PRO DRAIN LOWER LEG DEEP ABSC/HEMATOMA Left 09/26/2024 INCISION & DRAINAGE, LEG OR ANKLE, DEEP ABSCESS OR HEMATOMA (WRVU 5.23) performed by Hayley Torres MD at [facility] OR [facility] ENDOSCOPY W/VIDEO-ASST VEIN HARVEST, CABG 01/04/2012 ENDOSCOPIC HARVEST VEIN(S) FOR CABG performed by INNA TOVAR at [facility] MA[facility] OR PRO EXCISION, INFEC GRAFT, EXTREMITY Left 09/26/2024 EXCISION OF INFECTED GRAFT FROM LOWER EXTREMITY (WRVU 9.53) performed by Hayley Torres MD at [facility] OR PRO EXCISION, INFEC GRAFT, EXTREMITY Left 09/28/2024 EXCISION OF INFECTED GRAFT FROM LOWER EXTREMITY (WRVU 9.53) performed by Hayley Torres MD at [facility] OR PRO EXPLORATION NOT FOLLOWED BY SURG LOWER EXTREMITY ARTERY Left 09/29/2024 @EXPLORATION W\O SURGICAL REPAIR, FEMORAL ARTERY - JENNIFER (WRVU 7.5) performed by Anabel Finney MD at [facility] OR PRO FORM SKIN PEDICLE FLAP SCALP, ARM, LEG 09/28/2024 FLAP, PEDICLE,W OR W/O TRANSFER, LEGS (WRVU 10.12) performed by Hyaley Torres MD at [facility] OR PRO I&D DEEP ABSCESS BURSA/HEMATOMA THIGH/KNEE REGION Left 09/26/2024 INCISION & DRAINAGE ABSCESS OR HEMATOMA, THIGH, KNEE SUPERFICIAL (WRVU 6.78) performed by Hayley Torres MD at [facility] MA[facility] OR PRO REVISION FEMORAL ANAST BPG GROIN OPEN W/NONAUTOG PATCH GRAFT Left 09/28/2024 REV. FEM. ANASTOMOSIS OF SYN. BYPASS GRAFT USING NONAUTOGENOUS PATCH ANGIOPLASTY-JENNIFER (WRVU 23.15) performed by Hayley Torres MD at [facility] OR PRO UNLISTED PROCEDURE VASCULAR SURGERY Left 09/28/2024 HARVEST SAPHENOUS VEIN (WRVU 13.24) performed by Hayley Torres MD at [facility] OR VS ARTERIOGRAM LOWER EXTREMITY VASCULAR SURGERY 07/20/2024 VS Arteriogram Lower Extremity Vascular Surgery 07/20/2024 Anabel Finney MD [facility] RAD Active Non-Hospital [...] outlined in thisevaluation. Time IN / OUT: 6928-2739 Total Time: 28 minutes; Low EV and TEF JESSICA RENAE, PT Pager: [phone] Physical Therapy Inpatient Rehabilitation Department * Rose [...] 2nd toe amputation who was transferred from [facility] given concern for infected left fem-BK [...] smoking 1 week ago. He presented to [facility] on 09/26 and went to the OR [...] not holding suction - Last Bowel Movement: (CLIENT RELATIONSHIP MANAGER) Objective: Temp: [36.4 ??C (97.5 ??F)-37.3 ??C [...] Procedure Component Value - Date/Time Blood culture [[id number]] Collected: 09/29/242123 Lab Status: Preliminary result Specimen: Blood, Venous Updated: 10/02/24 2300 Blood Culture No growth at 72 hours Blood culture [[id number]] Collected: 09/29/242123 Lab Status: Preliminary result Specimen: Blood, Venous Updated: 10/02/24 2300 Blood Culture No growth at 72 hours Blood culture [[id number]] Collected: 09/28/24 174 Lab Status: Preliminary result Specimen: Blood, Venous Updated: 10/02/24 1901 Blood Culture No growth at 96 hours Blood culture [[id number]] (Abnormal) Collected: 09/27/242132 Lab Status: Final result Specimen: Blood, Venous Updated: 10/02/24 0804 Blood Culture Methicillin Resistant Staphylococcus aureus Comment: Susceptibilities previously reported. Gram Stain Aerobic Bottle: Gram positive cocci in clusters Tissue Culture, Aerobic & Anaerobic [[id number]] Collected: 09/27/241653 Lab Status: Final result Specimen: Tissue from Thigh, Left Updated: 10/01/24 155 Narrative: The following orders were created for panel order Tissue Culture, Aerobic & Anaerobic. Procedure Abnormality Status --------- ------ Tissue Culture, Aerobic ...[[id number]] Anaerobic Culture[[id number]] Final result Please view results for these tests on the individual orders. Anaerobic Culture [[id number]] Collected: 09/27/241653 Lab Status: Final result Specimen: Tissue from Thigh, Left Updated: 10/01/24 155 Anaerobic Culture No anaerobic organisms isolated Tissue Culture, Aerobic Only [[id number]] (Abnormal) (Susceptibility) Collected: 09/27/241653 Lab Status: Final [...] is considered susceptible to doxycycline. Blood culture [[id number]] (Abnormal) (Susceptibility) Collected: 09/26/24 1422 Lab Status: Final result Specimen: Blood, Venous Updated: 10/01/24 0658 Blood Culture Methicillin Resistant Staphylococcus aureus Comment: detected by PCR Isolate saved. If future testing is required, contact the Microbiology Residence Counselor. Gram Stain Aerobic Bottle: Gram positive cocci in clusters Susceptibility Methicillin Resistant Staphylococcus aureus VITEK 2 METHOD Clindamycin Resistant Gentamicin Susceptible [1] Linezolid Susceptible Oxacillin Resistant Trimethoprim/Sulfa Susceptible Vancomycin Susceptible [1] Gentamicin is not appropriate for monotherapy for gram-positive infections. Blood culture [[id number]] (Abnormal) Collected: 09/26/24 1845 Lab Status: Final result Specimen: Blood, Venous Updated: 10/01/24 0658 Blood Culture Methicillin Resistant Staphylococcus aureus Comment: isolated. Susceptibilities previously reported. Gram Stain Aerobic Bottle: Gram positive cocci in clusters Abscess/Wound Aspirate Culture, Aerobic & Anaerobic [[id number]] (Abnormal) Collected: 09/26/24 1650 Lab Status: Final result Specimen: Abscess from Groin, Left Updated: 09/30/24 1551 Narrative: The following orders were created for panel order Abscess/Wound Aspirate Culture, Aerobic & Anaerobic. Procedure Abnormality Status --------- ------ Abscess/Wound Aspirate C...[[id number]] Abnormal Final result Anaerobic Culture[[id number]] Final result Please view results for these tests on the individual orders. Anaerobic Culture [[id number]] Collected: 09/26/24 1650 Lab Status: Final result Specimen: Abscess from Groin, Left Updated: 09/30/24 1551 Anaerobic Culture No anaerobic organisms isolated Abscess/Wound Aspirate Culture, Aerobic & Anaerobic [[id number]] (Abnormal) Collected: 09/26/24 1702 Lab Status: Final result Specimen: Abscess from Knee, Left Updated: 09/30/24 1551 Narrative: The following orders were created for panel order Abscess/Wound Aspirate Culture, Aerobic & Anaerobic. Procedure Abnormality Status --------- ------ Abscess/Wound Aspirate C...[[id number]] Abnormal Final result Anaerobic Culture[[id number]] Final result Please view results for these tests on the individual orders. Anaerobic Culture [[id number]] Collected: 09/26/24 170 Lab Status: Final result Specimen: Abscess from Knee, Left Updated: 09/30/24 1551 Anaerobic Culture No anaerobic organisms isolated Sonicated Tissue/Implant Culture [[id number]] (Abnormal) Collected: 09/26/24 171 Lab Status: Final result Specimen: Vascular Graft from Leg, Left Updated: 09/30/24 1349 Sonicated Tissue/Implant Culture Methicillin Resistant Staphylococcus aureus Comment: isolated from broth culture. Susceptibilities previously reported. Abscess/Wound Aspirate Culture, Aerobic Only [[id number]] (Abnormal) (Susceptibility) Collected: 09/26/24 170 Lab Status: [...] to doxycycline. Abscess/Wound Aspirate Culture, Aerobic Only [[id number]] (Abnormal) (Susceptibility) Collected: 09/26/24 165 Lab Status: [...] is considered susceptible to doxycycline. AFB culture [[id number]] Collected: 09/27/24 165 Lab Status: Preliminary result Specimen: Tissue from Thigh, Left Updated: 09/29/24 1201 Acid Fast Bacilli Culture No acid fast bacilli isolated to date. Acid Fast Stain No acid fast bacilli seen AFB culture [[id number]] Collected: 09/26/24 170 Lab Status: Preliminary result Specimen: Abscess from Knee, Left Updated: 09/29/24 1201 Acid Fast Bacilli Culture No acid fast bacilli isolated to date. Acid Fast Stain No acid fast bacilli seen Fungus culture [[id number]] Collected: 09/27/241653 Lab Status: Preliminary result Specimen: Tissue from Thigh, Left Updated: 09/28/24 0748 Fungus Culture No fungus isolated to date MRSA PCR Screen [[id number]] (Abnormal) Collected: 09/27/24 0751 Lab Status: Final result Specimen: Swab from Nares Updated: 09/27/24 1156 MRSA PCR Detected Narrative: This test was performed using the Xpert MRSA NxG test kit and is run on the [employer] Gene[employer] SBV Dx System. This test is cleared by the U.S. Food and Drug Administration for clinical use and its performance characteristics have been verified by the [facility] at [facility]. Fungus culture [[id number]] Collected: 09/26/24 165 Lab Status: Preliminary result Specimen: Abscess from Groin, Left Updated: 09/27/24 0727 Fungus Culture No fungus isolated to date Fungus culture [[id number]] Collected: 09/26/241701 Lab Status: Preliminary result Specimen: [...] 2nd toe amputation who was transferred from [facility] given concern for infected left fem-BK popliteal PTFE bypass. He is now s/p an explantof an infected left femoral-below knee popliteal artery bypass graft (09/26), I/D groin abscess (), L GSV harvest, vein patch angioplasty, L HOSPITAL SECURITY OFFICER and BK pop w/ sartorius flap L fem, I/D, 09/29 L sartorius flap revision, vac change. 10/03/24 NPO at [facility] for OR wound exploration. Wound vac [...] 81mg daily Rose Wright APRN 10/03/2024 Pager: [phone] * Padma Ramirez MD - 10/02/2024 7:42 PM EST Surgery Post Op Check Geovanna Llanos Zack is a 49 y.o. male status post [...] concerns. Joanie Silverio PT, DPT, GCS Pager: [phone] 10/02/24 Inpatient Rehabilitation Department * Hermila White [...] 2nd toe amputation who was transferred from [facility] given concern for infected left fem-BK [...] smoking 1 week ago. He presented to [facility] on 09/26 and went to the OR [...] Daily heparin (porcine) 5,000 Units Subcutaneous Q8H [facility] lidocaine 1 patch Transdermal Q24H Operations this [...] 9.6 from 9.1 - Last Bowel Movement: (CLIENT RELATIONSHIP MANAGER) Objective: Temp: [36.2 ??C (97.1 ??F)-36.9 ??C [...] Procedure Component Value - Date/Time Blood culture [[id number]] (Abnormal) Collected: 09/27/242132 Lab Status: Final result Specimen: Blood, Venous Updated: 10/02/24 0804 Blood Culture Methicillin Resistant Staphylococcus aureus Comment: Susceptibilities previously reported. Gram Stain Aerobic Bottle: Gram positive cocci in clusters Blood culture [[id number]] Collected: 09/29/242123 Lab Status: Preliminary result Specimen: Blood, Venous Updated: 10/01/24 2301 Blood Culture No growth at 48 hours Blood culture [[id number]] Collected: 09/29/242123 Lab Status: Preliminary result Specimen: Blood, Venous Updated: 10/01/24 2301 Blood Culture No growth at 48 hours Blood culture [[id number]] Collected: 09/28/24 1749 Lab Status: Preliminary result Specimen: Blood, Venous Updated: 10/01/24 1901 Blood Culture No growth at 72 hours Tissue Culture, Aerobic & Anaerobic [[id number]] Collected: 09/27/241653 Lab Status: Final result Specimen: Tissue from Thigh, Left Updated: 10/01/24 1554 Narrative: The following orders were created for panel order Tissue Culture, Aerobic & Anaerobic. Procedure Abnormality Status --------- ------ Tissue Culture, Aerobic ...[[id number]] Anaerobic Culture[[id number]] Final result Please view results for these tests on the individual orders. Anaerobic Culture [[id number]] Collected: 09/27/241653 Lab Status: Final result Specimen: Tissue from Thigh, Left Updated: 10/01/24 1554 Anaerobic Culture No anaerobic organisms isolated Tissue Culture, Aerobic Only [[id number]] (Abnormal) (Susceptibility) Collected: 09/27/24 165 Lab Status: [...] is considered susceptible to doxycycline. Blood culture [[id number]] (Abnormal) (Susceptibility) Collected: 09/26/24 1422 Lab Status: Final result Specimen: Blood, Venous Updated: 10/01/24 0658 Blood Culture Methicillin Resistant Staphylococcus aureus Comment: detected by PCR Isolate saved. If future testing is required, contact the Microbiology Residence Counselor. Gram Stain Aerobic Bottle: Gram positive cocci in clusters Susceptibility Methicillin Resistant Staphylococcus aureus VITEK 2 METHOD Clindamycin Resistant Gentamicin Susceptible [1] Linezolid Susceptible Oxacillin Resistant Trimethoprim/Sulfa Susceptible Vancomycin Susceptible [1] Gentamicin is not appropriate for monotherapy for gram-positive infections. Blood culture [[id number]] (Abnormal) Collected: 09/26/24 1845 Lab Status: Final result Specimen: Blood, Venous Updated: 10/01/24 0658 Blood Culture Methicillin Resistant Staphylococcus aureus Comment: isolated. Susceptibilities previously reported. Gram Stain Aerobic Bottle: Gram positive cocci in clusters Abscess/Wound Aspirate Culture, Aerobic & Anaerobic [[id number]] (Abnormal) Collected: 09/26/24 165 Lab Status: Final result Specimen: Abscess from Groin, Left Updated: 09/30/24 1551 Narrative: The following orders were created for panel order Abscess/Wound Aspirate Culture, Aerobic & Anaerobic. Procedure Abnormality Status --------- ------ Abscess/Wound Aspirate C...[[id number]] Abnormal Final result Anaerobic Culture[[id number]] Final result Please view results for these tests on the individual orders. Anaerobic Culture [[id number]] Collected: 11/19/24 1650 Lab Status: Final result Specimen: Abscess from Groin, Left Updated: 09/30/24 1551 Anaerobic Culture No anaerobic organisms isolated Abscess/Wound Aspirate Culture, Aerobic & Anaerobic [[id number]] (Abnormal) Collected: 09/26/24 170 Lab Status: Final result Specimen: Abscess from Knee, Left Updated: 09/30/24 1551 Narrative: The following orders were created for panel order Abscess/Wound Aspirate Culture, Aerobic & Anaerobic. Procedure Abnormality Status --------- ------ Abscess/Wound Aspirate C...[[id number]] Abnormal Final result Anaerobic Culture[[id number]] Final result Please view results for these tests on the individual orders. Anaerobic Culture [[id number]] Collected: 09/26/24 170 Lab Status: Final result Specimen: Abscess from Knee, Left Updated: 09/30/24 1551 Anaerobic Culture No anaerobic organisms isolated Sonicated Tissue/Implant Culture [[id number]] (Abnormal) Collected: 09/26/24 1716 Lab Status: Final result Specimen: Vascular Graft from Leg, Left Updated: 09/30/24 1349 Sonicated Tissue/Implant Culture Methicillin Resistant Staphylococcus aureus Comment: isolated from broth culture. Susceptibilities previously reported. Abscess/Wound Aspirate Culture, Aerobic Only [[id number]] (Abnormal) (Susceptibility) Collected: 09/26/24 170 Lab Status: [...] to doxycycline. Abscess/Wound Aspirate Culture, Aerobic Only [[id number]] (Abnormal) (Susceptibility) Collected: 09/26/24 165 Lab Status: [...] is considered susceptible to doxycycline. AFB culture [[id number]] Collected: 09/27/241653 Lab Status: Preliminary result Specimen: Tissue from Thigh, Left Updated: 09/29/24 1201 Acid Fast Bacilli Culture No acid fast bacilli isolated to date. Acid Fast Stain No acid fast bacilli seen AFB culture [[id number]] Collected: 09/26/241701 Lab Status: Preliminary result Specimen: Abscess from Knee, Left Updated: 09/29/24 1201 Acid Fast Bacilli Culture No acid fast bacilli isolated to date. Acid Fast Stain No acid fast bacilli seen Fungus culture [[id number]] Collected: 09/27/241653 Lab Status: Preliminary result Specimen: Tissue from Thigh, Left Updated: 09/28/24 0748 Fungus Culture No fungus isolated to date MRSA PCR Screen [[id number]] (Abnormal) Collected: 09/27/24 0751 Lab Status: Final result Specimen: Swab from Nares Updated: 09/27/24 1156 MRSA PCR Detected Narrative: This test was performed using the Xpert MRSA NxG test kit and is run on the [employer] GeneXpert Dx System. This test is cleared by the U.S. Food and Drug Administration for clinical use and its performance characteristics have been verified by the [facility] at [facility]. Fungus culture [[id number]] Collected: 09/26/241649 Lab Status: Preliminary result Specimen: Abscess from Groin, Left Updated: 09/27/24 0727 Fungus Culture No fungus isolated to date Fungus culture [[id number]] Collected: 09/26/241701 Lab Status: Preliminary result Specimen: [...] 2nd toe amputation who was transferred from [facility] given concern for infected left fem-BK popliteal PTFE bypass. He is now s/p an explantof an infected left femoral-below knee popliteal artery bypass graft (09/26), I/D groin abscess (), L GSV harvest, vein patch angioplasty, L HOSPITAL SECURITY OFFICER and BK pop w/ sartorius flap L [...] 81mg daily Hermila White APRN 10/02/2024 Pager: [phone] * María Carranza APRN - 10/01/2024 8:41 AM EST Images from the original note were not included. Vascular Surgery Progress Note Geovanna Dixon Jr. is a 49 y.o. 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 He presented to [facility] on 09/26 and went to the OR [...] WBC 10.1(9.5) - lytes WNL - BM CLIENT RELATIONSHIP MANAGER (09/26) - BC NGTD Objective: Temp: [36.6 [...] Procedure Component Value - Date/Time Blood culture [[id number]] (Abnormal) (Susceptibility) Collected: 09/26/24 1422 Lab Status: Final result Specimen: Blood, Venous Updated: 10/01/24 0658 Blood Culture Methicillin Resistant Staphylococcus aureus Comment: detected by PCR Isolate saved. If future testing is required, contact the Microbiology Residence Counselor. Gram Stain Aerobic Bottle: Gram positive cocci in clusters Susceptibility Methicillin Resistant Staphylococcus aureus VITEK 2 METHOD Clindamycin Resistant Gentamicin Susceptible [1] Linezolid Susceptible Oxacillin Resistant Trimethoprim/Sulfa Susceptible Vancomycin Susceptible [1] Gentamicin is not appropriate for monotherapy for gram-positive infections. Blood culture [[id number]] (Abnormal) Collected: 09/26/24 1845 Lab Status: Final result Specimen: Blood, Venous Updated: 10/01/24 0658 Blood Culture Methicillin Resistant Staphylococcus aureus Comment: isolated. Susceptibilities previously reported. Gram Stain Aerobic Bottle: Gram positive cocci in clusters Blood culture [[id number]] Collected: 09/29/242123 Lab Status: Preliminary result Specimen: Blood, Venous Updated: 09/30/24 2301 Blood Culture No Growth at 18-24 hrs. Blood culture [[id number]] Collected: 09/29/24 2124 Lab Status: Preliminary result Specimen: Blood, Venous Updated: 09/30/24 2301 Blood Culture No Growth at 18-24 hrs. Blood culture [[id number]] Collected: 09/28/24 1749 Lab Status: Preliminary result Specimen: Blood, Venous Updated: 09/30/24 1901 Blood Culture No growth at 48 hours Abscess/Wound Aspirate Culture, Aerobic & Anaerobic [[id number]] (Abnormal) Collected: 09/26/24 165 Lab Status: Final result Specimen: Abscess from Groin, Left Updated: 09/30/24 1551 Narrative: The following orders were created for panel order Abscess/Wound Aspirate Culture, Aerobic & Anaerobic. Procedure Abnormality Status --------- ------ Abscess/Wound Aspirate C...[[id number]] Abnormal Final result Anaerobic Culture[[id number]] Final result Please view results for these tests on the individual orders. Anaerobic Culture [[id number]] Collected: 09/26/24 165 Lab Status: Final result Specimen: Abscess from Groin, Left Updated: 09/30/24 1551 Anaerobic Culture No anaerobic organisms isolated Abscess/Wound Aspirate Culture, Aerobic & Anaerobic [[id number]] (Abnormal) Collected: 09/26/24 170 Lab Status: Final result Specimen: Abscess from Knee, Left Updated: 09/30/24 1551 Narrative: The following orders were created for panel order Abscess/Wound Aspirate Culture, Aerobic & Anaerobic. Procedure Abnormality Status --------- ------ Abscess/Wound Aspirate C...[[id number]] Abnormal Final result Anaerobic Culture[[id number]] Final result Please view results for these tests on the individual orders. Anaerobic Culture [[id number]] Collected: 09/26/24 170 Lab Status: Final result Specimen: Abscess from Knee, Left Updated: 09/30/24 1551 Anaerobic Culture No anaerobic organisms isolated Sonicated Tissue/Implant Culture [[id number]] (Abnormal) Collected: 09/26/24 1716 Lab Status: Final result Specimen: Vascular Graft from Leg, Left Updated: 09/30/24 1349 Sonicated Tissue/Implant Culture Methicillin Resistant Staphylococcus aureus Comment: isolated from broth culture. Susceptibilities previously reported. Abscess/Wound Aspirate Culture, Aerobic Only [[id number]] (Abnormal) (Susceptibility) Collected: 09/26/24 1702 Lab Status: [...] to doxycycline. Abscess/Wound Aspirate Culture, Aerobic Only [[id number]] (Abnormal) (Susceptibility) Collected: 09/26/24 1650 Lab Status: [...] is considered susceptible to doxycycline. Blood culture [[id number]] (Abnormal) Collected: 09/27/24 2133 Lab Status: Preliminary result Specimen: Blood, Venous Updated: 09/30/24 0718 Blood Culture Methicillin Resistant Staphylococcus aureus Comment: Susceptibilities previously reported. Gram Stain Aerobic Bottle: Gram positive cocci in clusters AFB culture [[id number]] Collected: 09/27/24 1654 Lab Status: Preliminary result Specimen: Tissue from Thigh, Left Updated: 09/29/24 1201 Acid Fast Bacilli Culture No acid fast bacilli isolated to date. Acid Fast Stain No acid fast bacilli seen AFB culture [[id number]] Collected: 09/26/24 1702 Lab Status: Preliminary result Specimen: Abscess from Knee, Left Updated: 09/29/24 1201 Acid Fast Bacilli Culture No acid fast bacilli isolated to date. Acid Fast Stain No acid fast bacilli seen Tissue Culture, Aerobic Only [[id number]] (Abnormal) (Susceptibility) Collected: 09/27/241653 Lab Status: Preliminary [...] is considered susceptible to doxycycline. Anaerobic Culture [[id number]] Collected: 09/27/241653 Lab Status: Preliminary result Specimen: Tissue from Thigh, Left Updated: 09/28/24 1355 Anaerobic Culture No anaerobic organisms isolated to date Fungus culture [[id number]] Collected: 09/27/241653 Lab Status: Preliminary result Specimen: Tissue from Thigh, Left Updated: 09/28/24 0748 Fungus Culture No fungus isolated to date MRSA PCR Screen [[id number]] (Abnormal) Collected: 09/27/24 0751 Lab Status: Final result Specimen: Swab from Nares Updated: 09/27/24 1156 MRSA PCR Detected Narrative: This test was performed using the Xpert MRSA NxG test kit and is run on the [employer] Dx System. This test is cleared by the U.S. Food and Drug Administration for clinical use and its performance characteristics have been verified by the Clinical Genomics and Advanced Technology Laboratory at [facility]. Fungus culture [[id number]] Collected: 09/26/24 165 Lab Status: Preliminary result Specimen: Abscess from Groin, Left Updated: 09/27/24 0727 Fungus Culture No fungus isolated to date Fungus culture [[id number]] Collected: 09/26/24 1702 Lab Status: Preliminary result [...] 2nd toe amputation who was transferred from [facility] given concern for infected left fem-BK popliteal PTFE bypass. He is now s/p an explantof an infected left femoral-below knee popliteal artery bypass graft (09/26), I/D groin abscess (), L GSV harvest, vein patch angioplasty, L HOSPITAL SECURITY OFFICER and BK pop w/ sartorius flap L fem, I/D, 09/29 L sartorius flap revision, vac change. 10/01/24: Tolerated gentle irrigation with saline at BSD today with clear to mildly serosang drainage - no purulence or malodor noted and patient tolerated well. Will plan for NPO at [place] for return Sylwia tomorrow. Hypertensive overnight, home [...] - ISS - diet today; NPO at [facility] for OR Tuesday 10/02 Anticoagulation: SQH TID Antiplatelet: ASA 81 María Carranza, RODBUSTER 10/01/2024 Pager: [phone] * Karolyn Hudson MD - 09/30/2024 11:21 AM EST Images from the original note were not included. Vascular Surgery Progress Note Patient ID Geovanna Dixon Jr. is a 49 y.o. 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 He presented to [facility] on 09/26 and went to the OR [...] hgb, hct plt Recent Labs 09/29/24 23509/28/24 23509/27/24 235 WBC 9.54* 12.76* 17.15* HGB 8.7* 8.5* 10.4* HCT 25.8* 24.7* 30.5* PLATELET 411* 331 316 Microbiology Microbiology Results (last 7 days) Procedure Component Value - Date/Time Blood culture [[id number]] (Abnormal) Collected: 09/27/24 2133 Lab Status: Preliminary result Specimen: Blood, Venous Updated: 09/30/24 0718 Blood Culture Methicillin Resistant Staphylococcus aureus Comment: Susceptibilities previously reported. Gram Stain Aerobic Bottle: Gram positive cocci in clusters Blood culture [[id number]] Collected: 09/28/24 1749 Lab Status: Preliminary result Specimen: Blood, Venous Updated: 09/29/24 1901 Blood Culture No Growth at 18-24 hrs. AFB culture [[id number]] Collected: 09/27/24 1654 Lab Status: Preliminary result Specimen: Tissue from Thigh, Left Updated: 09/29/24 1201 Acid Fast Bacilli Culture No acid fast bacilli isolated to date. Acid Fast Stain No acid fast bacilli seen AFB culture [[id number]] Collected: 09/26/24 1702 Lab Status: Preliminary result Specimen: Abscess from Knee, Left Updated: 09/29/24 1201 Acid Fast Bacilli Culture No acid fast bacilli isolated to date. Acid Fast Stain No acid fast bacilli seen Sonicated Tissue/Implant Culture [[id number]] (Abnormal) Collected: 09/26/24 1716 Lab Status: Preliminary result Specimen: Vascular Graft from Leg, Left Updated: 09/29/24 1132 Sonicated Tissue/Implant Culture Methicillin Resistant Staphylococcus aureus Comment: isolated from broth culture. Susceptibilities previously reported. Tissue Culture, Aerobic Only [[id number]] (Abnormal) (Susceptibility) Collected: 09/27/24 1654 Lab Status: [...] is considered susceptible to doxycycline. Blood culture [[id number]] (Abnormal) Collected: 09/26/24 1845 Lab Status: Preliminary result Specimen: Blood, Venous Updated: 09/29/24 0719 Blood Culture Methicillin Resistant Staphylococcus aureus Comment: isolated. Susceptibilities previously reported. Gram Stain Aerobic Bottle: Gram positive cocci in clusters Blood culture [[id number]] (Abnormal) (Susceptibility) Collected: 09/26/24 1422 Lab Status: Preliminary result Specimen: Blood, Venous Updated: 09/29/24 0717 Blood Culture Methicillin Resistant Staphylococcus aureus Comment: detected by PCR Isolate saved. If future testing is required, contact the Microbiology Residence Counselor. Gram Stain Aerobic Bottle: Gram positive cocci in clusters Susceptibility Methicillin Resistant Staphylococcus aureus VITEK 2 METHOD Clindamycin Resistant Gentamicin Susceptible [1] Linezolid Susceptible Oxacillin Resistant Trimethoprim/Sulfa Susceptible Vancomycin Susceptible [1] Gentamicin is not appropriate for monotherapy for gram-positive infections. Anaerobic Culture [[id number]] Collected: 09/27/24 165 Lab Status: Preliminary result Specimen: Tissue from Thigh, Left Updated: 09/28/24 1355 Anaerobic Culture No anaerobic organisms isolated to date Abscess/Wound Aspirate Culture, Aerobic Only [[id number]] (Abnormal) (Susceptibility) Collected: 09/26/24 1702 Lab Status: [...] to doxycycline. Abscess/Wound Aspirate Culture, Aerobic Only [[id number]] (Abnormal) (Susceptibility) Collected: 09/26/241649 Lab Status: Preliminary [...] is considered susceptible to doxycycline. Fungus culture [[id number]] Collected: 09/27/241653 Lab Status: Preliminary result Specimen: Tissue from Thigh, Left Updated: 09/28/24 0748 Fungus Culture No fungus isolated to date MRSA PCR Screen [[id number]] (Abnormal) Collected: 09/27/24 0751 Lab Status: Final result Specimen: Swab from Nares Updated: 09/27/24 1156 MRSA PCR Detected Narrative: This test was performed using the Xpert MRSA NxG test kit and is run on the [employer] SBV Dx System. This test is cleared by the U.S. Food and Drug Administration for clinical use and its performance characteristics have been verified by the Clinical Genomics and Advanced Technology Laboratory at [facility]. Anaerobic Culture [[id number]] Collected: 09/26/241649 Lab Status: Preliminary result Specimen: Abscess from Groin, Left Updated: 09/27/24 1142 Anaerobic Culture No anaerobic organisms isolated to date Anaerobic Culture [[id number]] Collected: 09/26/24 1702 Lab Status: Preliminary result Specimen: Abscess from Knee, Left Updated: 09/27/24 1142 Anaerobic Culture No anaerobic organisms isolated to date Fungus culture [[id number]] Collected: 09/26/241649 Lab Status: Preliminary result Specimen: Abscess from Groin, Left Updated: 09/27/24 0727 Fungus Culture No fungus isolated to date Fungus culture [[id number]] Collected: 09/26/24 1702 Lab Status: Preliminary result Specimen: Abscess from Knee, Left Updated: 09/27/24 07 Fungus Culture No fungus isolated to date New Studies Results for orders placed or performed during the hospital encounter of 09/26/24 Request For 2nd Read CT Lower Extremity (Exam End: 09/26/2024 1:50 PM) Result Value WORKSTATION ID [id number] Impression 1. There is a left femoral [...] who have questions please contact the health human services care specialist that requested your imaging first. Lower Extremity w Contrast Left (Exam End: 09/27/2024 9:16 AM) Result Value WORKSTATION ID [id number] Impression IMPRESSION: 1. Interval explant of LEFT [...] who have questions please contact the health human services care specialist that requested your imaging first. [...] 2nd toe amputation who was transferred from [facility] given concern for infected left fem-BK [...] at proximal and distal anastomoses and a [place] drain placed from left groin to left thigh. The retained grafts have since been removed, with [place] drains in the L groin and thigh [...] no deficits Recent Labs 09/29/24 2352 09/28/24 23509/27/24235709/27/24 1755 WBC 9.54* 12.76* 17.15* 19.38* HGB 8.7* 8.5* 10.4* 11.0* HCT 25.8* 24.7* 30.5* 31.6* PLATELET 411* 331 316 322 Recent Labs 09/30/24 0627 09/29/24 2352 09/28/24 23509/28/24 1045 09/28/24 0455 09/27/242357 NA -- [...] Labs 09/28/24 1516 PHART 7.42 PO2ART 103 [id number] 39 LACTATEART 1.1 BEART 0.2 Is this [...] minimal erythema Neuro: no deficits Recent Labs 09/28/24235009/27/24235709/27/24 1755 09/27/24 0001 09/26/24 1439 WBC 12.76* [...] 1643 PHART 7.42 7.38 PO2ART 103 96 [id number] 39 41 LACTATEART 1.1 1.7 BEART 0.2 [...] 09/29/24 104.1 kg (229 lb 8 oz) 11/11/24 104.8 kg (231 lb) 08/28/24 102.1 kg [...] Thank you, Renea Nunez, MS, RD, LD, [facility] Clinical Nutrition * Mariya Shi [...] Diet CC Monitoring: Q4 Fawn Cunningham APRN [facility] Endocrinology Diabetes Management Pager [phone] Weekends please page [phone] 35 minutes were spent over the course [...] Labs 09/26/24 1643 PHART 7.38 PO2ART 96 TAM0HHR 41 LACTATEART 1.7 BEART -1.4 Is this [...] 2nd toe amputation who was transferred from [facility] given concern for infected left fem-BK [...] smoking 1 week ago. He presented to [facility] on 09/26 and went to the OR [...] Procedure Component Value - Date/Time Fungus culture [[id number]] Collected: 09/27/24 1654 Lab Status: Preliminary result Specimen: Tissue from Thigh, Left Updated: 09/28/24 0748 Fungus Culture No fungus isolated to date Blood culture [[id number]] (Abnormal) Collected: 09/26/24 1845 Lab Status: Preliminary result Specimen: Blood, Venous Updated: 09/28/24 0711 Blood Culture Methicillin Resistant Staphylococcus aureus Comment: isolated. Susceptibility testing in progress. Gram Stain Aerobic Bottle: Gram positive cocci in clusters AFB culture [[id number]] Collected: 09/26/24 170 Lab Status: Preliminary result Specimen: Abscess from Knee, Left Updated: 09/27/24 2335 Acid Fast Stain No acid fast bacilli seen Tissue Culture, Aerobic Only [[id number]] Collected: 09/27/24 165 Lab Status: Preliminary result Specimen: Tissue from Thigh, Left Updated: 09/27/24 1810 Gram Stain Few Neutrophils seen No microorganisms seen Abscess/Wound Aspirate Culture, Aerobic Only [[id number]] (Abnormal) Collected: 09/26/24 170 Lab Status: Preliminary result Specimen: Abscess from Knee, Left Updated: 09/27/24 1520 Abscess/Wound Aspirate Culture Many Staphylococcus aureus Gram Stain Many neutrophils Many Gram positive cocci Abscess/Wound Aspirate Culture, Aerobic Only [[id number]] (Abnormal) Collected: 09/26/24 165 Lab Status: Preliminary result Specimen: Abscess from Groin, Left Updated: 09/27/24 1519 Abscess/Wound Aspirate Culture Many Staphylococcus aureus Gram Stain Many neutrophils Many Gram positive cocci Blood culture [[id number]] (Abnormal) Collected: 09/26/24 1422 Lab Status: Preliminary result Specimen: Blood, Venous Updated: 09/27/24 1320 Blood Culture Methicillin Resistant Staphylococcus aureus Comment: detected by PCR Gram Stain Aerobic Bottle: Gram positive cocci in clusters MRSA PCR Screen [[id number]] (Abnormal) Collected: 09/27/24 0751 Lab Status: Final result Specimen: Swab from Nares Updated: 09/27/24 1156 MRSA PCR Detected Narrative: This test was performed using the Xpert MRSA NxG test kit and is run on the [employer] SBV Dx System. This test is cleared by the U.S. Food and Drug Administration for clinical use and its performance characteristics have been verified by the Clinical Genomics and Advanced Technology Laboratory at [facility]. Anaerobic Culture [[id number]] Collected: 09/26/24 165 Lab Status: Preliminary result Specimen: Abscess from Groin, Left Updated: 09/27/24 1142 Anaerobic Culture No anaerobic organisms isolated to date Anaerobic Culture [[id number]] Collected: 09/26/24 170 Lab Status: Preliminary result Specimen: Abscess from Knee, Left Updated: 09/27/24 1142 Anaerobic Culture No anaerobic organisms isolated to date Fungus culture [[id number]] Collected: 09/26/24 1650 Lab Status: Preliminary result Specimen: Abscess from Groin, Left Updated: 09/27/24726 Fungus Culture No fungus isolated to date Fungus culture [[id number]] Collected: 09/26/24 1702 Lab Status: Preliminary result Specimen: Abscess from Knee, Left Updated: 09/27/24726 Fungus Culture No fungus isolated to date New Studies Results for orders placed or performed during the hospital encounter of 09/26/24 Request For 2nd Read CT Lower Extremity (Exam End: 09/26/2024 1:50 PM) Result Value WORKSTATION ID [id number] Impression 1. There is a left femoral [...] who have questions please contact the health human services care specialist that requested your imaging first. Lower Extremity w Contrast Left (Exam End: 09/27/2024 9:16 AM) Result Value WORKSTATION ID [id number] Impression IMPRESSION: 1. Interval explant of LEFT [...] who have questions please contact the health human services care specialist that requested your imaging first. Assessment & Plan Geovanna Dixon Jr. is a 49 y.o. male with a history of HTN, HLD, NSTEMI, CAD s/p CABG (12/2011), DM,obesity, PAD s/p L iliofem endart and L fem-BK pop bypass and L 2nd toe amputation who was transferred from [facility] given concern for infected left fem-BK [...] Kita Hodge - 09/27/2024 3:58 PM EST Strike Warfare/Missile Systems Officer Encounter Note Patient Name: Geovanna Dixon Jr. : [id number] MR#: [id number] Admit Date: 09/26/2024 2:08 PM Hospital Day 1 day Narrative: Network Applications Specialist initiated visit with patient during rounds on the unit. Patient indicated that he was not nondenominational. He reported that he was in less [...] Labs 09/26/24 1643 PHART 7.38 PO2ART 96 [id number] 41 LACTATEART 1.7 BEART -1.4 Is this [...] 2nd toe amputation who was transferred from [facility] given concern for infected left fem-BK [...] smoking 1 week ago. He presented to [facility] on 09/26 and went to the OR [...] lower extremity Assessment & Plan Geovanna Dixon JrFlorencio is a 49 y.o. male with a history of HTN, HLD, NSTEMI, CAD s/p CABG (12/2011), DM,obesity, PAD s/p L iliofem endart and L fem-BK pop bypass and L 2nd toe amputation who was transferred from [facility] given concern for infected left fem-BK popliteal PTFE bypass. He is now s/p an explantof an infected left femoral-below knee popliteal artery bypass graft. Significant purulence under pr essure was seen intraoperatively, surrounding the entire bypass at proximal and distal anastomoses as well as the tunnel. There are retained grafts left at proximal and distal anastomoses, and a Irving[place] drain placed from left groin to left [...] graft associated infection. The patient presented to [facility] ED on 09/26 for evaluation of [...] remained hemodynamically stable during his time at [facility] and was transported by ground to [facility] for vascular surgery consultation. Patient was admitted [...] Extremity Vascular Surgery 07/20/2024 Anabel Finney MD [facility] Prior To Admission Medications: [...] 3 times daily. Use as instructed Indications: [id number] each 1 Past Week FreeStyle Lancets 28 [...] 200 - 393 mg/dL Type and screen ([facility]/AYANAP/BABITA) Result Value Ref Range ABORH Type A POSITIVE PATIENT HISTORY Found Expires at 2359 on: 09/29/2024 ANTIBODY SCREEN AUTOMATED Negative T&S only valid at [facility] LAB CBC (with Diff) Result Value Ref [...] 09/26/2024 1:50 PM) Result Value WORKSTATION ID [id number] Impression 1. There is a left femoral [...] who have questions please contact the health human services care specialist that requested your imaging first. Assessment/Plan: Geovanna [...] to the planned procedure. Hand Hygiene: The greenhouse staff did perform hand hygiene prior to line insertion. Catheter type: PICC Lot number: [id number] Procedure Technique: Skin was prepped with chlorhexidine. [...] to the planned procedure. Hand Hygiene: The greenhouse staff did perform hand hygiene prior to line insertion. Catheter type: PICC Lot number: [id number] Procedure Technique: Skin was prepped with chlorhexidine. [...] Outcome: Outcome (s) achieved 10/10/20241330 by Terell Arazia RN Outcome: Ongoing (Interventions Implemented as Appropriate) [...] and wound vac. Teaching done by [facility] with at 10am. Confirmed VNA visit. Delivery confirmed for tomorrow afternoon. Home Vac: I have called [facility] Inventory and they they have now delivered the home ActiVac serial # [id number]. Pt reviewed the [facility] ActiVac Proof of Delivery/Assignment of Benefits (POD/AOB)form and signed it; she has copy of this and the [facility] Patient Copy letter along with the supplies, I will fax copy of the POD/AOB to [facility]. Needs for Transition of Care: Plan for discharge is: Home w/ Services Outpatient Agency/Support Group Needs: Homecare agency Outpatient IV Medications - IV Access: Access Ordered Location: Home, Referred to [facility] Coordination, Referred to [facility] Services: Occupational Therapy, Physical Therapy, Registered Nurse Agency Referrals & Follow-up Care: [place] [address] [facility] [address] Transportation: family or friend will provide Functional status prior to admission: Independent Home Environment: Others in the home: sibling(s), other (see comments) (lives with his sister delmy and brother in law). Current Living Arrangements: home/apartment/condo. Accessibility Concerns: . Current Functional Ability: Assistive Person and Equipment DME used at home: none Other DME Needs: Wound Vac Provider: [facility] Patient is insured through: Primary Insurance: [employer] MANAGED MEDICARE Payor: [employer] MANAGED MEDICARE / Plan: [employer] MANAGED MEDICARE PPO / Product Type: *No [...] Pain Flowsheets Taken 10/09/20242022 Pain Management Interventions: pbpcvb-shr-cnvwl dosing utilized care clustered diversional activity provided [...] from the [place] [address] [facility] Vascular Access Service Peripherally Inserted Central Catheter (PICC) Teaching Sheet Peripherally inserted central catheters (mpml-dw-trao) (PICC) are used when you need IV [...] midline catheter? PICC lines are used for horser up treatments. PICC lines may be used for [...] can be set up via the nurse Casino Floor Walker to help you. What are possible complications [...] Vascular Access Device Selection, Insertion, and Management, [employer] Access Systems 08/12. A Review of the Efficacy, Safety, Use, and Administration of Cathflo, [employer] 2005 * Care Management - Cristina [...] through: Primary Insurance: [employer] MANAGED MEDICARE Payor: [employer] MEDICARE / Plan: [employer] MANAGED MEDICARE PPO / Product Type: *No [...] Access: Access Ordered Location: Home, Referred to [facility] Coordination Home Health Services: Occupational Therapy, Physical Therapy, Registered Nurse- will remove PT, OT Agency Referrals: [facility] and [facility] for IV abx. [facility] can come tomorrow [...] 9:00 AM EST OFFICE OF CARE MANAGEMENT Casino Floor Walker Follow-up Note Cristina Turner RN reviewed record [...] medically ready. Current Referral in place: VNA: [facility] Wound vac ordered in [employer] System for home wound vac and order emailed to: María for signature. Casino Floor Walker to follow with team and family to [...] where referrals are placed. Request referral to [place], [place] for IV abx or . Expected date of discharge: 10/11. Patient will require teaching. Referral routed to the Meter Technician for matching with agency/vendor and to provide [...] care clustered diversional activity provided position adjusted ztqege-dwv-lnxxp dosing utilized pain management plan reviewed with [...] have. Alternately, during off-hours you may call [phone] to contact a pharmacist. * Plan of Care - Jordyn Navas RN - 10/07/2024 7:21 PM EST OUTCOME EVALUATION NOTE: OUTCOME SUMMARY: Transferred to unit at 1730 from [facility] - VSS, Meds/Assessments as charted, Frequent safety [...] PM EST PICC line placed today for half-way ABX. Neurovascular checks unchanged. Good oral intake [...] from the [place] [address] [facility] Vascular Access Service Peripherally Inserted Central Catheter (PICC) Teaching Sheet Peripherally inserted central catheters (vdtk-ar-goif) (PICC) are used when you need IV [...] midline catheter? PICC lines are used for half-way treatments. PICC lines may be used for [...] can be set up via the nurse Casino Floor Walker to help you. What are possible complications [...] Vascular Access Device Selection, Insertion, and Management, [employer] Access Systems 08/12. A Review of the Efficacy, Safety, Use, and Administration of Cathflo, [employer] 2005 * Care Management - Vibha [...] No Patient is insured through: Primary Insurance: [employer] MANAGED MEDICARE Payor: [employer] MANAGED MEDICARE / Plan: [employer] MANAGED MEDICARE PPO / Product Type: *No [...] of Discharge: 10/10/2024 Vibha Wahl RN-BSN-CM Pager: [phone] * Consult Note - Stormy Muller [facility] - 10/06/2024 9:19 AM EST [facility] Pharmacokinetics Note Drug: Vancomycin Pharmacokinetic target: [...] Analysis of the most recent level(s) using Tã Em Bé gives the following patient-specific pharmacokinetic parameters: CL: [...] in a steady-state trough of 14.6 mg/L [id number] of 508 mg/L.hr. Recommendations: - SCr has [...] Meeks MD - 10/04/2024 5:01 PM EST [facility] Operative Note Patient Name: Geovanna Dixon Jr. : [id number] MR#: [id number] Case Date: 10/04/2024 Surgeon: Surgeons and Role: * Marko Dickson MD - Primary * Cristino Meeks MD - Resident - Assisting Preoperative diagnosis: Status post explant of infected left HOSPITAL SECURITY OFFICER-BK pop bypass graft Postoperative diagnosis: Status post explant of infected left HOSPITAL SECURITY OFFICER-BK pop bypass graft Procedure(s) (LRB): DEBRIDEMENT SKIN [...] 2nd toe amputation who was transferred from [facility] given concern for infected left fem-BK popliteal PTFE bypass. He is now s/p an explant of an infected left femoral-below knee popliteal artery bypass graft on 09/26 followed by I/D posterior thigh abscess on 09/27 then left GSV harvest, total explant of remaining PTFE then vein patch angioplasty of the left HOSPITAL SECURITY OFFICER and BK popliteal artery on 09/28 then [...] Note Patient Name: Geovanna Dixon Jr. : [id number] MR#: [id number] Case Date: 10/04/2024 Surgeon: Surgeons and Role: * Marko Dickson MD - Primary * Cristino Meeks MD - Resident - Assisting Preoperative diagnosis: Status post explant of infected left HOSPITAL SECURITY OFFICER-BK pop bypass graft Postoperative diagnosis: Status post explant of infected left HOSPITAL SECURITY OFFICER-BK pop bypass graft Procedure(s) (LRB): DEBRIDEMENT SKIN [...] No Patient is insured through: Primary Insurance: [employer] MANAGED MEDICARE Payor: [employer]ED [employer]ICARE / Plan: [employer]ED MEDICARE PPO / Product Type: *No Product type* / Secondary Insurance: N/A Last Physical Therapy Recommendation: home with supervision (and support from family, prn) with None (10/03/24 1101) Last Occupational Therapy Recommendation: home (w/ family) with None (10/03/24 3729) Plan for discharge is: Pending Hospital Course [...] BIT to reengage please page BIT @ [phone] * Consult Note - Vangie Chandra [facility] - 10/04/2024 10:42 AM EST [facility] Pharmacokinetics Note Drug: Vancomycin Pharmacokinetic target: AUC24 (range) 400-600 mg/L.hr Current regimen: 1500 mg IV every 8 hours Geovanna Dixon is a(n) 49 years old male receiving Vancomycin 1500 mg IV every 8 hours for graft infection Recent measured serum creatinine values: 10/04/2024 00:08 0.56 mg/dL 10/03/2024 00:27 0.51 mg/dL 10/02/2024 00:41 0.49 mg/dL Assessment: Analysis of the most recent level(s) using Tã Em Bé gives the following patient-specific pharmacokinetic parameters: CL: [...] L 2nd toe amputationwho was transferred from [facility] given concern for infected left fem-BK popliteal PTFE bypass. He is now s/p an explant of an infected left femoral-below knee popliteal artery bypass graft (09/26), I/D groin abscess (09/27), L GSV harvest, vein patch angioplasty, L HOSPITAL SECURITY OFFICER and BK pop w/ sartorius flap L fem, I/D, 09/29 L sartorius flap revision, vac change. 10/03/24 NPO at [facility] for OR wound exploration. Wound vac [...] TOVAR at [facility] OR PRO DEBRIDEMENT MUSCLE AND FASCIA 20 SQ CM/< Left 09/29/2024 DEBRIDEMENT SKIN, SUBCU, MUSCLE, LOWER EXTREMITY (WRVU 2.7) performed by Anabel Finney MD at [facility] OR PRO DEBRIDEMENT MUSCLE AND FASCIA 20 SQ CM/< Left 10/02/2024 DEBRIDEMENT SKIN, SUBCU, MUSCLE, LOWER EXTREMITY (WRVU 2.7) performed by Hermila Mccormick MDat [facility] OR PRO DEBRIDEMENT SUBCUTANEOUS TISSUE 20 SQCM/< Left 09/27/2024 DEBRIDEMENT SKIN AND SUBCU, LOWER EXTREMITY (WRVU 1.01) performed by Hayley Torres MD at [facility] OR PRO DRAIN LOWER LEG DEEP ABSC/HEMATOMA Left 09/26/2024 INCISION & DRAINAGE, LEG OR ANKLE, DEEP ABSCESS OR HEMATOMA (WRVU 5.23) performed by Hayley Torres MD at [facility] OR [facility] ENDOSCOPY W/VIDEO-ASST VEIN HARVEST, CABG 01/04/2012 ENDOSCOPIC HARVEST VEIN(S) FOR CABG performed by INNA TOVAR at [facility] OR PRO EXCISION, INFEC GRAFT, EXTREMITY Left 09/26/2024 EXCISION OF INFECTED GRAFT FROM LOWER EXTREMITY (WRVU 9.53) performed by Hayley Torres MD at [facility] OR PRO EXCISION, INFEC GRAFT, EXTREMITY Left 09/28/2024 EXCISION OF INFECTED GRAFT FROM LOWER EXTREMITY (WRVU 9.53) performed by Hayley Torres MD at [facility] OR PRO EXPLORATION NOT FOLLOWED BY SURG LOWER EXTREMITY ARTERY Left 09/29/2024 @EXPLORATION W\O SURGICAL REPAIR, FEMORAL ARTERY - JENNIFER (WRVU 7.5) performed by Anabel Finney MD at [facility] OR PRO FORM SKIN PEDICLE FLAP SCALP, ARM, LEG 09/28/2024 FLAP, PEDICLE,W OR W/O TRANSFER, LEGS (WRVU 10.12) performed by Hayley Torres MD at [facility] OR PRO I&D DEEP ABSCESS BURSA/HEMATOMA THIGH/KNEE REGION Left 09/26/2024 INCISION & DRAINAGE ABSCESS OR HEMATOMA, THIGH, KNEE SUPERFICIAL (WRVU 6.78) performed by Hayley Torres MD at [facility] OR PRO REVISION FEMORAL ANAST BPG GROIN OPEN W/NONAUTOG PATCH GRAFT Left 09/28/2024 REV. FEM. ANASTOMOSIS OF SYN. BYPASS GRAFT USING NONAUTOGENOUS PATCH ANGIOPLASTY-JENNIFER (WRVU 23.15) performed by Hayley Torres MD at [facility] OR PRO UNLISTED PROCEDURE VASCULAR SURGERY Left 09/28/2024 HARVEST SAPHENOUS VEIN (WRVU 13.24) performed by Hayley Torres MD at [facility] OR VS ARTERIOGRAM LOWER EXTREMITY VASCULAR SURGERY 07/20/2024 VS Arteriogram Lower Extremity Vascular Surgery 07/20/2024 Anabel Finney MD [facility] Social History: Patient lives [...] Pt issued and educated on use of vacuum extractor operator for vacuum extractor operator lower items. Self-feeding: Independent Grooming: Set [...] Discharge planning Total Minutes, Occupational Therapy: 35 ([phone]) OT Evaluation Code Rationale: Diagnosis & Pertinent Co-Morbidities affecting Plan of Care: see PMHx Occupational Profile & Client History: Brief Expanded Extensive x Assessment of Occupational Performance: 1-3 performance deficits 3-5 performance deficits x 5 + performance deficits Clinical Decision Making: Low Moderate High x Clinical decision making of low complexity using standardized patient assessment instrument and measurable assessment of functional outcome. Pager: [phone] Jorge Goetz OT 10/03/2024 Occupational Therapy Rehabilitation [...] Mccormick MD - 10/02/2024 2:06 PM EST [facility] Operative Note Patient Name: Geovanna Dixon Jr. : [id number] MR#: [id number] Case Date: 10/02/2024 Surgeon: Surgeons and Role: [...] 2nd toe amputation who was transferred from [facility] given concern for infected left fem-BK [...] the groin, we then attached a 15 Monegasque Jose drain to the Yung drain, and remove the Yung drain, replacing it with the 15 Monegasque Jose drain. In a similar way we [...] Therapy, Physical Therapy, Registered Nurse Agency Referrals: [facility]. [address] [place] [address] Transportation: family or friend will provide Barriers to discharge: Global: Denies needs/concerns at this time Plan: Patient is not medically ready related to: patient is going to the OR today for a washout andremains on blowout precautions. Plan going forward is: when able patient will need to work with PT/OT Anticipated Date of Discharge: 10/10/2024 Penny ROSAS, RN Phone: [phone] Pager: [phone] * Plan of Care - Heidi Mobley [...] Consult Note - Katelyn Oconnor [facility] - 09/30/2024 7:43 AM EST [facility] Pharmacokinetics Note Drug: Vancomycin Pharmacokinetic target: AUC24 (range) 400-600 mg/L.hr Current regimen: 1500 mg IV every 8 hours Geovanna Dixon is a(n) 49 years old male receiving Vancomycin 1500 mg IV every 8 hours for bacteremia Recent measured serum creatinine values: 09/29/2024 23:52 0.48 mg/dL 09/28/2024 23:51 0.52 mg/dL 09/27/2024 23:58 0.48 mg/dL Assessment: Analysis of the most recent level(s) using Tã Em Bé gives the following patient-specific pharmacokinetic parameters: CL: [...] Continue to monitor serum creatinine Katelyn Oconnor Electronically signed by Katelyn Oconnor [facility] at 09/30/2024 7:45 AM EST * Plan of Care - Candie Plata RN - 09/29/2024 6:30 PM EST OUTCOME SUMMARY: Pt down to OR~1400, returned ~1540. VSS on RA. Denies pain. Q1NV unchanged. PLAN MOVING FORWARD: Pain management as needed. OR Wednesday? * Op Note - Anabel Finney MD - 09/29/2024 2:41 PM EST [facility] Operative Note Patient Name: Geovanna Dixon Jr. : [id number] MR#: [id number] Case Date: 09/29/2024 Surgeon: Surgeons and Role: [...] 2nd toe amputation who was transferred from [facility] given concern for infected left fem-BK [...] mobilized and explored. The area around the HOSPITAL SECURITY OFFICER was irrigated copiously. The flap was then [...] Therapy, Physical Therapy, Registered Nurse Agency Referrals: [facility]. [address] [place] [address] Transportation: family or friend will provide Barriers [...] Discharge: 10/04/2024 Penny ROSAS RN CM Phone: [phone] Pager: [phone] * Consult Note - Rose Wright APRN [...] 2nd toe amputation who was transferred from [facility] given concern for infected left fem-BK [...] smoking 1 week ago. He presented to [facility] on 09/26 and went to the OR [...] Procedure Component Value - Date/Time Blood culture [[id number]] (Abnormal) Collected: 09/27/242132 Lab Status: Preliminary result Specimen: Blood, Venous Updated: 09/29/24 0721 Blood Culture Methicillin Resistant Staphylococcus aureus Gram Stain Aerobic Bottle: Gram positive cocci in clusters Blood culture [[id number]] (Abnormal) Collected: 09/26/24 1845 Lab Status: Preliminary result Specimen: Blood, Venous Updated: 09/29/24 0719 Blood Culture Methicillin Resistant Staphylococcus aureus Comment: isolated. Susceptibilities previously reported. Gram Stain Aerobic Bottle: Gram positive cocci in clusters Blood culture [[id number]] (Abnormal) (Susceptibility) Collected: 09/26/24 1422 Lab Status: Preliminary result Specimen: Blood, Venous Updated: 09/29/24 0717 Blood Culture Methicillin Resistant Staphylococcus aureus Comment: detected by PCR Isolate saved. If future testing is required, contact the Microbiology Residence Counselor. Gram Stain Aerobic Bottle: Gram positive cocci in clusters Susceptibility Methicillin Resistant Staphylococcus aureus VITEK 2 METHOD Clindamycin Resistant Gentamicin Susceptible [1] Linezolid Susceptible Oxacillin Resistant Trimethoprim/Sulfa Susceptible Vancomycin Susceptible [1] Gentamicin is not appropriate for monotherapy for gram-positive infections. AFB culture [[id number]] Collected: 09/27/24 165 Lab Status: Preliminary result Specimen: Tissue from Thigh, Left Updated: 09/28/24 2226 Acid Fast Stain No acid fast bacilli seen Anaerobic Culture [[id number]] Collected: 09/27/24 165 Lab Status: Preliminary result Specimen: Tissue from Thigh, Left Updated: 09/28/24 1355 Anaerobic Culture No anaerobic organisms isolated to date Sonicated Tissue/Implant Culture [[id number]] Collected: 09/26/24 1716 Lab Status: Preliminary result Specimen: Vascular Graft from Leg, Left Updated: 09/28/24 1323 Sonicated Tissue/Implant Culture Culture in progress Tissue Culture, Aerobic Only [[id number]] (Abnormal) Collected: 09/27/24 1654 Lab Status: Preliminary result Specimen: Tissue from Thigh, Left Updated: 09/28/24 1049 Tissue Culture Rare Staphylococcus aureus Gram Stain Few Neutrophils seen No microorganisms seen Abscess/Wound Aspirate Culture, Aerobic Only [[id number]] (Abnormal) (Susceptibility) Collected: 09/26/24 1702 Lab Status: [...] to doxycycline. Abscess/Wound Aspirate Culture, Aerobic Only [[id number]] (Abnormal) (Susceptibility) Collected: 09/26/241649 Lab Status: Preliminary [...] is considered susceptible to doxycycline. Fungus culture [[id number]] Collected: 09/27/241653 Lab Status: Preliminary result Specimen: Tissue from Thigh, Left Updated: 09/28/24 0748 Fungus Culture No fungus isolated to date AFB culture [[id number]] Collected: 09/26/241701 Lab Status: Preliminary result Specimen: Abscess from Knee, Left Updated: 09/27/24 2335 Acid Fast Stain No acid fast bacilli seen MRSA PCR Screen [[id number]] (Abnormal) Collected: 09/27/24 0751 Lab Status: Final result Specimen: Swab from Nares Updated: 09/27/24 1156 MRSA PCR Detected Narrative: This test was performed using the Xpert MRSA NxG test kit and is run on the [employer] GeneXStudio SBV Dx System. This test is cleared by the U.S. Food and Drug Administration for clinical use and its performance characteristics have been verified by the [facility] at [facility]. Anaerobic Culture [[id number]] Collected: 09/26/241649 Lab Status: Preliminary result Specimen: Abscess from Groin, Left Updated: 09/27/24 1142 Anaerobic Culture No anaerobic organisms isolated to date Anaerobic Culture [[id number]] Collected: 09/26/24 170 Lab Status: Preliminary result Specimen: Abscess from Knee, Left Updated: 09/27/24 1142 Anaerobic Culture No anaerobic organisms isolated to date Fungus culture [[id number]] Collected: 09/26/24 1650 Lab Status: Preliminary result Specimen: Abscess from Groin, Left Updated: 09/27/24726 Fungus Culture No fungus isolated to date Fungus culture [[id number]] Collected: 09/26/24 1702 Lab Status: Preliminary result Specimen: Abscess from Knee, Left Updated: 09/27/24726 Fungus Culture No fungus isolated to date New Studies Results for orders placed or performed during the hospital encounter of 09/26/24 Request For 2nd Read CT Lower Extremity (Exam End: 09/26/2024 1:50 PM) Result Value WORKSTATION ID [id number] Impression 1. There is a left femoral [...] who have questions please contact the health human services care specialist that requested your imaging first. Lower Extremity w Contrast Left (Exam End: 09/27/2024 9:16 AM) Result Value WORKSTATION ID [id number] Impression IMPRESSION: 1. Interval explant of LEFT [...] who have questions please contact the health human services care specialist that requested your imaging first. [...] 2nd toe amputation who was transferred from [facility] given concern for infected left fem-BK [...] at proximal and distal anastomoses and a Irvington drain placed from left groin to left [...] Torres MD - 09/28/2024 12:23 PM EST [facility] Operative Note Patient Name: Geovanna Dixon Jr. : [id number] MR#: [id number] Case Date: 09/28/2024 Surgeon: Surgeons and Role: [...] pericardial patch and PTFE willard over the HOSPITAL SECURITY OFFICER was unincorporated. - Resection of prior femoral [...] Destination 1 : Left femoral proximal graft Pocket Stitcher Leg, Left SURGICAL PATHOLOGY Hayley Torres MD 09/28/2024 1410 2 : Left distal BK pop graft Pocket Stitcher Leg, Left SURGICAL PATHOLOGY Hayley Torres MD [...] Indications: 49M with history of a left HOSPITAL SECURITY OFFICER-BK popliteal artery bypass with PTFE performed in [...] solution. Systemic heparin was administered. Next, the HOSPITAL SECURITY OFFICER, SFA, and DFA were clamped. An 11-blade scalpel was used to excise the PTFE graft willard and the prior bovine pericardial patch, and all prior Prolene sutures were removed. Residual plaque in the arterial lumen was removed using a Stinnett elevator. The harvested vein patch was cut [...] the midline with division of the first teacher home therapy, such that the sartorius muscle was free [...] Torres MD - 09/28/2024 12:23 PM EST [facility] Operative Note Patient Name: Geovanna Dixon Jr. : [id number] MR#: [id number] Case Date: 09/28/2024 Surgeon: Surgeons and Role: [...] - Prior bovine pericardial patch over the HOSPITAL SECURITY OFFICER was unincorporated. - Resection of prior femoral [...] Used? No * [facility]/28/[facility]24 9:23 AM EST [...] Analysis of the most recent level(s) using 100du.tvRX gives the following patient-specific pharmacokinetic parameters: CL: [...] Note Patient Name: Geovanna Dixon Jr. : [id number] MR#: [id number] Case Date: 09/27/2024 Surgeon: Surgeons and Role: [...] Torres MD - 09/27/2024 4:27 PM EST [facility] Operative Note Patient Name: Geovanna Dixon Jr. : [id number] MR#: [id number] Case Date: 09/26/2024 Surgeon: Surgeons and Role: [...] ANAEROBIC Hayley Torres MD 09/26/2024 1702 Drains: Irvington drain between left groin to left thigh [...] HPI/Surgical Indications: 49M with history of left HOSPITAL SECURITY OFFICER-BK popliteal artery bypass graft with PTFE (July [...] Torres MD - 09/27/2024 4:27 PM EST [facility] Operative Note Patient Name: Geovanna Dixon Jr. : [id number] MR#: [id number] Case Date: 09/27/2024 Surgeon: Surgeons and Role: * Hayley Torres MD - Primary * Cristino Meeks MD - Resident - Assisting * Joseph, Anabel E, MD - Assisting Attending Preoperative diagnosis: Infected [...] 2nd toe amputation who was transferred from [facility] given concern for infected left fem-BK [...] smoking 1 week ago. He presented to [facility] on 09/26 and went to the OR [...] provide a review of half-way diabetes care. Glargine 25 units administered this [...] outpatient diabetes regimen: Diabetes Provider: PCP in [facility] Medications: Lantus 50 units, lispro 10 units [...] JOSE insulin lispro 2-12 Units Subcutaneous Q4H OJSE piperacillin-tazobactam 3.375 g Intravenous Q8H atorvastatin 80 [...] Cunningham APRN Endocrinology Diabetes Management Service Pager: [phone] Weekends please page [phone] 80 minute visit was spent in counseling [...] receiving care in [place] must abide by [place] law. The hierarchy [...] (i) The agent with financial power of business attorney or a conservator appointed in accordance [...] homeless or living in a fdc (including now)?: No In the past 12 months has the electric, gas, oil, or water [employer] EMR threatened to shut off services in your [...] DME: none Home Address confirmed as: [address] [facility] [address] Social & Family Supports: All names listed below confirmed with patient as current and correct Extended Emergency Contact Information Primary Emergency Contact: Cony Barrientos Relation: Mother Secondary Emergency Contact: ZackRene Mobile Relation: Spouse Current Care Provided by: [...] his home before. Health/Prescription Coverage: Primary Insurance: [employer] MANAGED MEDICARE Payor: [employer] MANAGED MEDICARE / Plan: [facility] PPO / Product Type: *No Product type* / Secondary Insurance: N/A ; Prescription Coverage: Yes Preferred Pharmacy: [id number] - [place], [place] - [address] [facility] [address] [facility] [address] [facility] - [place], [place] - [address] [address] [place], [place] - [address] [facility] [address] [facility] [address] [facility] [address] [place] Status: Patient is a : No Primary Care Provider confirmed: JUSTIN Roberson [phone] Patient/Caregiver Goals of Treatment: patient will need [...] where referrals are placed. Provided patient with [facility] Star Quality Rating handout. They have requested referrals to: [facility]. [address] [place] [address] Expected date of discharge: TBD Referral routed to the Meter Technician for matching with agency/vendor and to provide [...] care as indicated. Penny ROSAS, RN Phone: [phone] Pager: [phone] * Consult Note - Stacey Thomas MD [...] extremity aching prompting him to go to [facility]. The groin pain dissipated. About a week later on 09/26 he developed left-sided groin pain prompting him to go to [facility] once again. Lab work notable for WBC count of 21, lactic acid 3.6. He underwent evaluation with a CT scan demonstrating an abscess from the left groin operative site the entire left of the graft down by the knee. He was transferred to [facility] for further care and he was [...] VEIN GRAFT performed by INNA TOVAR at [facility] OR PRO ENDOSCOPY W/VIDEO-ASST VEIN HARVEST, CABG 01/04/2012 ENDOSCOPIC HARVEST VEIN(S) FOR CABG performed by INNA TOVAR at [facility] OR VS ARTERIOGRAM LOWER EXTREMITY VASCULAR SURGERY 07/20/2024 VS Arteriogram Lower Extremity Vascular Surgery 07/20/2024 Anabel Finney MD [facility] Medications: potassium chloride ER [...] Continuous Infusions: lactated Ringers 100 mL/hr (09/27/24 5844) sodium chloride 0.9% PRN Meds:.potassium chloride ER OR potassium chloride ER, glucose 40% oral geL OR dextrose OR glucagon, oxyCODONE OR oxyCODONE, oxyCODONE, HYDROmorphone OR HYDROmorphone, HYDROmorphone, nitroGLYcerin, vancomycin, magnesium sulfate OR magnesium sulfate Radiology/Studies/Procedures: Reviewed op note Impression: Geovanna Dixon is a 49 y.o. male with a [...] admitted to SICU as a transfer from [facility] for suspected graft infection/sepsis. A/Ox4, able [...] Torres MD - 09/26/2024 4:50 PM EST [facility] Operative Note Patient Name: Geovanna Dixon Jr. : [id number] MR#: [id number] Case Date: 09/26/2024 Surgeon: Surgeons and Role: * Hayley Torres MD - Primary * Dolly Dan MD - Resident - Assisting * Ken Moeller MD - Resident - Assisting Preoperative diagnosis: left infected femoral to below knee bypass graft Postoperative diagnosis: left infected femoral to below knee bypass graft Procedure: Explant of infected LEFT HOSPITAL SECURITY OFFICER to below-knee popliteal artery PTFE bypass graft [...] Indications: 49M with history of a left HOSPITAL SECURITY OFFICER-BK popliteal artery bypass with PTFE performed in [...] 2nd toe amputation who was transferred from [facility] given concern for infected left fem-BK [...] by INNA TOVAR at [facility] OR VS ARTERIOGRAM LOWER EXTREMITY VASCULAR SURGERY 07/20/2024 VS Arteriogram Lower Extremity Vascular Surgery 07/20/2024 Anabel Finney MD [facility] Social Hx: Social History [...] 3 times daily. Use as instructed Indications: [id number] each 1 FreeStyle Lancets 28 gauge Misc [...] 2nd toe amputation who was transferred from [facility] given concern for infected left fem-BK [...] 1:00 PM EST Appointment XRay at [address] [place] [address] Isabeal Hayward APRN [facility] [place] [address] 11/09/2024 1:30 PM EST Office Visit [place]ious [place] [address] Isabela Hayward, RODBUSTER [facility] [place] [address] 11/10/2024 10:00 AM EST Office [place] [address] Dai Whitman, RODBUSTER 11/21/2024 2:15 PM EST Office [place] [phone] Dayanara Grover MD [facility] [place] [address] Pending Results Name Type Priority Associated Diagnoses [...] EST I&D Deep Abscess Bursa/Hematoma Thigh/Knee Region (04803) 09/26/2024 3:52 PM EST left infected femoral to below knee bypass graft Drain Lower Leg Deep Absc/Hematoma (97861) 09/26/2024 3:52 PM EST left infected femoral to below knee bypass graft Excision, Infec Graft, Extremity ([id number]) 09/26/2024 3:52 PM EST left infected femoral [...] Non-fasting (10/16/2024) Glucose Lvl - External 124(H) [facility] Blood Urea Nitrogen - External 17 [facility] Creatinine - External 0.9 [facility] EGFR - External 104.05 [facility] Anion Gap - External 11.6(H) [facility] Sodium - External 141 [facility] Potassium - External 4.3 [facility] Chloride - External 103 [facility] CO2 - External 26.4 [facility] Calcium - External 9.0 [facility] Protein, Total - External 6.9 [facility] Albumin - External 3.0(L) [facility] Total Bilirubin - External 0.20 [facility] Alk Phos - External 124(H) [facility] AST (SGOT) - External 12 [facility] ALT (SGPT) - External 22 [facility] Blood VENOUS BLOOD SPECIMEN / Unknown 10/16/2024 Amaya Hernandez MD CHEMISTRY ORDERABLES [address] [place] [id number] [phone] * CK (10/16/2024) CK, Total - External 39 [facility] Blood VENOUS BLOOD SPECIMEN / Unknown 10/16/2024 Amaya Hernandez MD CHEMISTRY ORDERABLES [address] [place], [place] [id number] [place] [address] * (ABNORMAL) CBC (with Diff) (10/16/2024) WBC - External 10.99(H) [facility] RBC - External 3.71(L) [facility] Hemoglobin - External 10.8(L) [facility] Hematocrit - External 33.8(L) [facility] MCV - External 91 [facility] MCH - External 29.1 [facility] MCHC - External 32.0 [facility] RDWCV - External 14.2(H) [facility] Platelets - External 512(H) [facility] MPV - External 9.8 [facility] NRBC % - External 0.0 [facility] NRBC Abs - External 0.0 [facility] Neutrophils % - External 64.2 [facility] Lymphocytes % - External 25.8 [facility] Monocytes % - External 6.8 [facility] Eosinophils % - External 2.0 [facility] Basophils % - External 0.9 [facility] Immature Gran % - External 0.3 [facility] Neutr ABS (ANC) - External 7.06(H) [facility] Lymphocyte ABS - External 2.84 [facility] Monocyte ABS - External 0.75 [facility] Eosinophil ABS - External 0.22 [facility] Basophil ABS - External 0.10 [facility] Blood VENOUS BLOOD SPECIMEN / Unknown 10/16/2024 Amaya Hernandez MD HEMATOLOGY ORDERABLE S [address] [place], [place] [address] [phone] * POC, GLUCOSE (10/10/2024 4:27 PM EST) Glucometer, POC 172 65 - 199 mg/dL 10/10/2024 4:27 PM EST [facility] Comment:Supplemental ranges: <140 mg/dL before meals <180 mg/dL all other times of the day. Blood CAPILLARY BLOOD / Unknown 10/10/2024 4:27 PM EST 10/10/2024 4:27 PM EST Hayley Torres MD POINT OF CARE TEST O GILDA Performing Organization Address City/[facility]/ZIP Co de Phone Number [facility] [place] [address] * POC, GLUCOSE (10/10/2024 11:10 AM EST) Glucometer, POC 174 65 - 199 mg/dL 10/10/2024 11:11 AM EST [facility] Comment:Supplemental ranges: <140 mg/dL before meals <180 mg/dL all other times of the day. Blood CAPILLARY BLOOD / Unknown 10/10/2024 11:10 AM EST 10/10/2024 11:11 AM EST Hayley Torres MD POINT OF CARE TEST O GILDA Performing Organization Address City/[facility]/ZIP Co de Phone Number [facility] [place] [address] * POC, GLUCOSE (10/10/2024 7:46 AM EST) Glucometer, POC 141 65 - 199 mg/dL 10/10/2024 7:46 AM EST [facility] Comment:Supplemental ranges: <140 mg/dL before meals <180 mg/dL all other times of the day. Blood CAPILLARY BLOOD / Unknown 10/10/2024 7:46 AM EST 10/10/2024 7:46 AM EST Hayley Torres MD POINT OF CARE TEST O GILDA Performing Organization Address City/[facility]/ZIP Co de Phone Number [facility] [place] [address] * POC, GLUCOSE (10/10/2024 6:11 AM EST) Pathologist [facility] Glucometer, POC 127 65 - 199 mg/dL 10/10/2024 6:11 AM EST [facility] Comment:Supplemental ranges: <140 mg/dL before meals <180 mg/dL all other times of the day. Blood CAPILLARY BLOOD / Unknown 10/10/2024 6:11 AM EST 10/10/2024 6:11 AM EST Hayley Torres MD POINT OF CARE TEST Stephanie VO Performing Organization Address [facility] Co de Phone Number [facility] [place] [address] * CK (10/10/2024 12:33 AM EST) Pathologist [facility] Creatine Kinase 32 0 - 200 unit/L 10/10/2024 8:54 AM EST [facility] Blood VENOUS BLOOD SPECIMEN / Unknown Venipuncture / Unknown 10/10/2024 12:33 AM EST 10/10/2024 12:43 AM EST María Carranza APRN CHEMISTRY ORDER RANDELL Performing Organization Address City/[facility]/ZIP Co de Phone Number [facility] [place] [address] * (ABNORMAL) CBC (with Diff) (10/10/2024 12:33 AM EST) Pathologist [facility] White Blood Cell 11.57(H) 4.00 - 9.50 x10(3)/mc L 10/10/2024 12:48 AM EST [facility] Red Blood Cell 3.75(L) 4.58 - 5.54 x10(6)/mc L 10/10/2024 12:48 AM EST [facility] Hemoglobin 11.1(L) 13.7 - 16.5 g/dL 10/10/2024 12:48 AM [facility] Hematocrit 33.5(L) 40.5 - 48.5 % 10/10/2024 12:48 AM [facility] Mean Cell Volume 89.3 82.9 - 93.1 fL 10/10/2024 12:48 AM [facility] Mean Cell Hemoglobin 29.6 27.5 - 32.1 pg 10/10/2024 12:48 AM [facility] Mean Cell Hemoglobin Concentration 33.1 32.0 - 35.7 g/dL 10/10/2024 12:48 AM [facility] Platelet 823(H) 145 - 357 x10(3)/mc L 10/10/2024 12:48 AM [facility] Mean Platelet Volume 9.2 7.6 - 12.9 fL 10/10/2024 12:48 AM [facility] RDW Standard Deviation 46.3(H) 36.0 - 45.0 fL 10/10/2024 12:48 AM [facility] RDW coefficient of variation 14.6(H) 11.4 - 13.8 % 10/10/2024 12:48 AM [facility] NRBC% auto 0.0 % 10/10/2024 12:48 AM [facility] NRBC Absolute <0.01 <0.01 x10(3)/mc L 10/10/2024 12:48 AM [facility] Neutrophil % 61.3 % 10/10/2024 12:48 AM [facility] Neutrophil Absolute (ANC) - Automated 7.08(H) 1.70 - 6.10 x10(3)/mc L 10/10/2024 12:48 AM [facility] Lymph % 28.7 % 10/10/2024 12:48 AM [facility] Lymph Absolute 3.32(H) 0.90 - 3.20 x10(3)/mc L 10/10/2024 12:48 AM [facility] Monocyte % 7.0 % 10/10/2024 12:48 AM EST [facility] Monocyte Absolute 0.81 0.30 - 0.90 x10(3)/mc L 10/10/2024 12:48 AM [facility] Eos % 1.6 % 10/10/2024 12:48 AM [facility] Eos Absolute 0.19 0.00 - 0.40 x10(3)/mc L 10/10/2024 12:48 AM [facility] Basophil % 1.0 % 10/10/2024 12:48 AM [facility] Baso Absolute 0.12(H) 0.00 - 0.10 x10(3)/mc L 10/10/2024 12:48 AM [facility] Immature Gran % 0.4 % 12:48 AM [facility] Immature Gran Absolute 0.05(H) 0.00 - 0.04 x10(3)/mc L 10/10/2024 12:48 AM [facility] Blood VENOUS BLOOD SPECIMEN / Unknown Venipuncture / Unknown 10/10/2024 12:33 AM EST 10/10/2024 12:43 AM EST Hayley Torres MD HEMATOLOGY ORDERABLE S [facility] [place] [address] * (ABNORMAL) Basic Metabolic Panel (10/10/2024 12:33 AM EST) Glucose 125 65 - 199 mg/dL 10/10/2024 1:12 AM [facility] Comment:Glucose Concentratio n >=200 mg/dL plus symptoms is consistent with Diabetes Mellitus. Blood Urea Nitrogen 19 10 - 20 mg/dL 10/10/2024 1:12 AM [facility] Creatinine 0.57(L) 0.80 - 1.50 mg/dL 10/10/2024 1:12 AM [facility] Sodium 138 135 - 145 mMol/L 10/10/2024 1:12 AM [facility] Potassium 4.1 3.5 - 5.0 mMol/L 10/10/2024 1:12 AM [facility] Chloride 103 98 - 107 mMol/L 10/10/2024 1:12 AM [facility] Carbon Dioxide 25 22 - 31 mMol/L 10/10/2024 1:12 AM [facility] Anion Gap 10 5 - 15 mMol/L 10/10/2024 1:12 AM [facility] Calcium 9.4 8.5 - 10.5 mg/dL 10/10/2024 1:12 AM [facility] Est Glomerular Filtration Rate - Male 119 mL/min/1. 73 m?? 10/10/2024 1:12 AM [facility] Comment: This patient's estimated GFR [...] AM EST Hayley Torres MD CHEMISTRY ORDERABLES [facility] [place] [address] * Phosphorus (10/10/2024 12:33 AM EST) Phosphorus 3.8 2.5 - 4.5 mg/dL 10/10/2024 1:12 AM EST [facility] Blood VENOUS BLOOD SPECIMEN / Unknown Venipuncture / Unknown 10/10/2024 12:33 AM EST 10/10/2024 12:43 AM EST Hayley Torres MD CHEMISTRY ORDERABLES Performing Organization Address City/[facility]/ZIP Co de Phone Number [facility] [place] [address] * Magnesium (10/10/2024 12:33 AM EST) Magnesium 0.81 0.69 - 1.07 mMol/L 10/10/2024 1:12 AM EST [facility] Blood VENOUS BLOOD SPECIMEN / Unknown Venipuncture / Unknown 10/10/2024 12:33 AM EST 10/10/2024 12:43 AM EST Hayley Torres MD CHEMISTRY ORDERABLES Performing Organization Address [facility] Co de Phone Number [facility] [place] [address] * POC, GLUCOSE (10/10/2024 12:31 AM EST) Glucometer, POC 119 65 - 199 mg/dL 10/10/2024 12:32 AM EST [facility] Comment:Supplemental ranges: <140 mg/dL before meals <180 mg/dL all other times of the day. Blood CAPILLARY BLOOD / Unknown 10/10/2024 12:31 AM EST 10/10/2024 12:32 AM EST Hayley Torres MD POINT OF CARE TEST O RDERABLES Performing Organization Address City/[facility]/ZIP Co de Phone Number [facility] [place] [address] * POC, GLUCOSE (10/09/2024 8:16 PM EST) Glucometer, POC 104 65 - 199 mg/dL 10/09/2024 8:16 PM EST [facility] Comment:Supplemental ranges: <140 mg/dL before meals <180 mg/dL all other times of the day. Blood CAPILLARY BLOOD / Unknown 10/09/2024 8:16 PM EST 10/09/2024 8:16 PM EST Hayley Torres MD POINT OF CARE TEST O GILDA Performing Organization Address [facility] Co de Phone Number [facility] [place] [address] * POC, GLUCOSE (10/09/2024 3:57 PM EST) Glucometer, POC 120 65 - 199 mg/dL 10/09/2024 3:57 PM EST [facility] Comment:Supplemental ranges: <140 mg/dL before meals <180 mg/dL all other times of the day. Blood CAPILLARY BLOOD / Unknown 10/09/2024 3:57 PM EST 10/09/2024 3:57 PM EST Hayley Torres MD POINT OF CARE TEST O GILDA Performing Organization Address [facility] de Phone Number [facility] [place] [address] * Place PICC Line: Contact Vascular Access Page [phone] Extremity to exclude: No restrictions; Is PICC procedure required PRIOR to patients discharge? Yes (10/09/2024 1:55 PM EST) Narrative Jorge Torres RN - 10/09/2024 1:55 PM EST Jorge Torrse RN ? 10/09/2024 ??1:57 PM PICC/Midline Insertion [...] to the planned procedure. Hand Hygiene: The greenhouse staff did perform hand hygiene prior to line insertion. Catheter type: PICC Lot number: [id number] Procedure Technique: Skin was prepped with chlorhexidine. [...] (IV Team) (10/09/2024 1:55 PM EST) Pathologist Keep Me Certified WORKSTATION ID [id number] RAD Anatomical Region Laterality Modality N/A Radio [...] who have questions please contact the health human services care specialist that requested your imaging first. [...] patients who have questions please contactthe health human services care specialist that requested your imaging first. María Carranza APRN IMG [facility] * POC, GLUCOSE (10/09/2024 11:40 AM EST) Glucometer, POC 180 65 - 199 mg/dL 10/09/2024 11:40 AM EST [facility] Comment:Supplemental ranges: <140 mg/dL before meals <180 mg/dL all other times of the day. Blood CAPILLARY BLOOD / Unknown 10/09/2024 11:40 AM EST 10/09/2024 11:41 AM EST Hayley Torres MD POINT OF CARE TEST O GILDA Performing Organization Address City/[facility] Co de Phone Number [facility] [place] [address] * (ABNORMAL) POC, GLUCOSE (10/09/2024 7:35 AM EST) Glucometer, POC 215(H) 65 - 199 mg/dL 10/09/2024 7:36 AM EST [facility] Comment:Supplemental ranges: <140 mg/dL before meals <180 mg/dL all other times of the day. Blood CAPILLARY BLOOD / Unknown 10/09/2024 7:35 AM EST 10/09/2024 7:36 AM EST Hayley Torres MD POINT OF CARE TEST O GILDA [facility] [place] [address] * POC, GLUCOSE (10/09/2024 4:26 AM EST) Glucometer, POC 175 65 - 199 mg/dL 10/09/2024 4:26 AM EST [facility] Comment:Supplemental ranges: <140 mg/dL before meals <180 mg/dL all other times of the day. Blood CAPILLARY BLOOD / Unknown 10/09/2024 4:26 AM EST 10/09/2024 4:26 AM EST Hayley Torres MD POINT OF CARE TEST O RDERABLES [facility] [place] [address] * (ABNORMAL) CBC (with Diff) (10/09/2024 12:45 AM EST) White Blood Cell 11.27(H) 4.00 - 9.50 x10(3)/mc L 10/09/2024 1:31 AM [facility] Red Blood Cell 3.74(L) 4.58 - 5.54 x10(6)/mc L 10/09/2024 1:31 AM [facility] Hemoglobin 10.8(L) 13.7 - 16.5 g/dL 10/09/2024 1:31 AM [facility] Hematocrit 33.5(L) 40.5 - 48.5 % 10/09/2024 1:31 AM [facility] Mean Cell Volume 89.6 82.9 - 93.1 fL 10/09/2024 1:31 AM [facility] Mean Cell Hemoglobin 28.9 27.5 - 32.1 pg 10/09/2024 1:31 AM [facility] Mean Cell Hemoglobin Concentration 32.2 32.0 - 35.7 g/dL 10/09/2024 1:31 AM [facility] Platelet 886(H) 145 - 357 x10(3)/mc L 10/09/2024 1:31 AM [facility] Mean Platelet Volume 9.5 7.6 - 12.9 fL 10/09/2024 1:31 AM [facility] RDW Standard Deviation 47.7(H) 36.0 - 45.0 fL 10/09/2024 1:31 AM [facility] RDW coefficient of variation 14.6(H) 11.4 - 13.8 % 10/09/2024 1:31 AM [facility] NRBC% auto 0.0 % 10/09/2024 1:31 AM [facility] NRBC Absolute <0.01 <0.01 x10(3)/mc L 10/09/2024 1:31 AM [facility] Neutrophil % 61.7 % 10/09/2024 1:31 AM [facility] Neutrophil Absolute (ANC) - Automated 6.95(H) 1.70 - 6.10 x10(3)/mc L 10/09/2024 1:31 AM [facility] Lymph % 28.3 % 10/09/2024 1:31 AM [facility] Lymph Absolute 3.19 0.90 - 3.20 x10(3)/mc L 10/09/2024 1:31 AM [facility] Monocyte % 6.8 % 10/09/2024 1:31 AM [facility] Monocyte Absolute 0.77 0.30 - 0.90 x10(3)/mc L 10/09/2024 1:31 AM [facility] Eos % 1.5 % 10/09/2024 1:31 AM [facility] Eos Absolute 0.17 0.00 - 0.40 x10(3)/mc L 10/09/2024 1:31 AM [facility] Basophil % 1.1 % 10/09/2024 1:31 AM [facility] Baso Absolute 0.12(H) 0.00 - 0.10 x10(3)/mc L 10/09/2024 1:31 AM [facility] Immature Gran % 0.6 % 1:31 AM [facility] Immature Gran Absolute 0.07(H) 0.00 - 0.04 x10(3)/mc L 10/09/2024 1:31 AM [facility] Blood VENOUS BLOOD SPECIMEN / Unknown Venipuncture / Unknown 10/09/2024 12:45 AM EST 10/09/2024 1:27 AM EST Hayley Torres MD HEMATOLOGY ORDERABLE S [facility] [place] [address] * (ABNORMAL) Basic Metabolic Panel (10/09/2024 12:45 AM EST) Glucose 135 65 - 199 mg/dL 10/09/2024 1:54 AM EST [facility] Comment:Glucose Concentratio n >=200 mg/dL plus symptoms is consistent with Diabetes Mellitus. Blood Urea Nitrogen 22(H) 10 - 20 mg/dL 10/09/2024 1:54 AM [facility] Creatinine 0.53(L) 0.80 - 1.50 mg/dL 10/09/2024 1:54 AM [facility] Sodium 138 135 - 145 mMol/L 10/09/2024 1:54 AM [facility] Potassium 4.1 3.5 - 5.0 mMol/L 10/09/2024 1:54 AM [facility] Chloride 102 98 - 107 mMol/L 10/09/2024 1:54 AM [facility] Carbon Dioxide 24 22 - 31 mMol/L 10/09/2024 1:54 AM [facility] Anion Gap 12 5 - 15 mMol/L 10/09/2024 1:54 AM [facility] Calcium 9.4 8.5 - 10.5 mg/dL 10/09/2024 1:54 AM [facility] Est Glomerular Filtration Rate - Male 122 mL/min/1. 73 m?? 10/09/2024 1:54 AM [facility] Comment: This patient's estimated GFR [...] Torres MD CHEMISTRY ORDERABLES Performing Organization Address City/[facility]/ZIP Co de Phone Number [facility] [place] [address] * Phosphorus (10/09/2024 12:45 AM EST) Phosphorus 3.9 2.5 - 4.5 mg/dL 10/09/2024 1:54 AM EST [facility] Blood VENOUS BLOOD SPECIMEN / Unknown Venipuncture / Unknown 10/09/2024 12:45 AM EST 10/09/2024 1:27 AM EST Hayley Torres MD CHEMISTRY ORDERABLES Performing Organization Address City/[facility] Co de Phone Number [facility] [place] [address] * Magnesium (10/09/2024 12:45 AM EST) Magnesium 0.80 0.69 - 1.07 mMol/L 10/09/2024 1:54 AM EST [facility] Blood VENOUS BLOOD SPECIMEN / Unknown Venipuncture / Unknown 10/09/2024 12:45 AM EST 10/09/2024 1:27 AM EST Hayley Torres MD CHEMISTRY ORDERABLES Performing Organization Address City/[facility] Co de Phone Number [facility] [place] [address] * POC, GLUCOSE (10/09/2024 12:11 AM EST) Glucometer, POC 157 65 - 199 mg/dL 10/09/2024 12:11 AM EST [facility] Comment:Supplemental ranges: <140 mg/dL before meals <180 mg/dL all other times of the day. Blood CAPILLARY BLOOD / Unknown 10/09/2024 12:11 AM EST 10/09/2024 12:11 AM EST Hayley Torres MD POINT OF CARE TEST O GILDA Performing Organization Address City/[facility]/ZIP Co de Phone Number [facility] [place] [address] * POC, GLUCOSE (10/08/2024 7:25 PM EST) Glucometer, POC 157 65 - 199 mg/dL 10/08/2024 7:25 PM EST [facility] Comment:Supplemental ranges: <140 mg/dL before meals <180 mg/dL all other times of the day. Blood CAPILLARY BLOOD / Unknown 10/08/2024 7:25 PM EST 10/08/2024 7:25 PM EST Hayley Torres MD POINT OF CARE TEST O GILDA Performing Organization Address City/[facility]/ZIP Co de Phone Number [facility] [place] [address] * POC, GLUCOSE (10/08/2024 5:54 PM EST) Glucometer, POC 198 65 - 199 mg/dL 10/08/2024 5:54 PM EST [facility] Comment:Supplemental ranges: <140 mg/dL before meals <180 mg/dL all other times of the day. Blood CAPILLARY BLOOD / Unknown 10/08/2024 5:54 PM EST 10/08/2024 5:54 PM EST Hayley Torres MD POINT OF CARE TEST O GILDA [facility] [place] [address] * (ABNORMAL) POC, GLUCOSE (10/08/2024 4:08 PM EST) Glucometer, POC 281(H) 65 - 199 mg/dL 10/08/2024 4:08 PM EST [facility] Comment:Supplemental ranges: <140 mg/dL before meals <180 mg/dL all other times of the day. Blood CAPILLARY BLOOD / Unknown 10/08/2024 4:08 PM EST 10/08/2024 4:09 PM EST Hayley Torres MD POINT OF CARE TEST O GILDA Performing Organization Address City/[facility]/ZIP Co de Phone Number [facility] [place] [address] * POC, GLUCOSE (10/08/2024 12:44 PM EST) Glucometer, POC 146 65 - 199 mg/dL 10/08/2024 12:44 PM EST [facility] Comment:Supplemental ranges: <140 mg/dL before meals <180 mg/dL all other times of the day. Blood CAPILLARY BLOOD / Unknown 10/08/2024 12:44 PM EST 10/08/2024 12:44 PM EST Hayley Torres MD POINT OF CARE TEST O GILDA Performing Organization Address [facility] Co de Phone Number [facility] [place] [address] * POC, GLUCOSE (10/08/2024 8:30 AM EST) Glucometer, POC 172 65 - 199 mg/dL 10/08/2024 8:30 AM EST [facility] Comment:Supplemental ranges: <140 mg/dL before meals <180 mg/dL all other times of the day. Blood CAPILLARY BLOOD / Unknown 10/08/2024 8:30 AM EST 10/08/2024 8:30 AM EST Hayley Torres MD POINT OF CARE TEST O GILDA [facility] [place] [address] * Vancomycin Level, Random (10/08/2024 5:59 AM EST) Pathologist [facility] Vancomycin, Random 6.8 mg/L 2023 7:58 AM EST [facility] Comment:This level is for de termination of the patient's vancomycin ptfx-equuc-dpx-curve (AUC) value. Contact the inpatient pharmacy for interpretation. Blood VENOUS BLOOD SPECIMEN / Unknown Venipuncture / Unknown 10/08/2024 5:59 AM EST 10/08/2024 7:29 AM EST Hayley Torres MD CHEMISTRY ORDERABLES Performing Organization Address City/[facility]/ZIP Co de Phone Number [facility] [place] [address] * POC, GLUCOSE (10/08/2024 4:02 AM EST) [facility] Glucometer, POC 163 65 - 199 mg/dL 10/08/2024 4:02 AM EST [facility] Comment:Supplemental ranges: <140 mg/dL before meals <180 mg/dL all other times of the day. Blood CAPILLARY BLOOD / Unknown 10/08/2024 4:02 AM EST 10/08/2024 4:02 AM EST Hayley Torres MD POINT OF CARE TEST O RDERABLES [facility] [place] [address] * (ABNORMAL) CBC (with Diff) (10/08/2024 12:08 AM EST) White Blood Cell 10.35(H) 4.00 - 9.50 x10(3)/mc L 10/08/2024 12:29 AM EST [facility] Red Blood Cell 3.53(L) 4.58 - 5.54 x10(6)/mc L 10/08/2024 12:29 AM EST [facility] Hemoglobin 10.2(L) 13.7 - 16.5 g/dL 10/08/2024 12:29 AM [facility] Hematocrit 31.7(L) 40.5 - 48.5 % 10/08/2024 12:29 AM [facility] Mean Cell Volume 89.8 82.9 - 93.1 fL 10/08/2024 12:29 AM [facility] Mean Cell Hemoglobin 28.9 27.5 - 32.1 pg 10/08/2024 12:29 AM [facility] Mean Cell Hemoglobin Concentration 32.2 32.0 - 35.7 g/dL 10/08/2024 12:29 AM [facility] Platelet 778(H) 145 - 357 x10(3)/mc L 10/08/2024 12:29 AM [facility] Mean Platelet Volume 9.1 7.6 - 12.9 fL 10/08/2024 12:29 AM [facility] RDW Standard Deviation 47.5(H) 36.0 - 45.0 fL 10/08/2024 12:29 AM [facility] RDW coefficient of variation 14.6(H) 11.4 - 13.8 % 10/08/2024 12:29 AM [facility] NRBC% auto 0.0 % 10/08/2024 12:29 AM [facility] NRBC Absolute <0.01 <0.01 x10(3)/mc L 10/08/2024 12:29 AM [facility] Neutrophil % 60.9 % 10/08/2024 12:29 AM [facility] LABORATORY Neutrophil Absolute (ANC) - Automated 6.30(H) 1.70 - 6.10 x10(3)/mc L 10/08/2024 12:29 AM [facility] Lymph % 28.4 % 10/08/2024 12:29 AM [facility] Lymph Absolute 2.94 0.90 - 3.20 x10(3)/mc L 10/08/2024 12:29 AM [facility] Monocyte % 7.2 % 10/08/2024 12:29 AM [facility] Monocyte Absolute 0.75 0.30 - 0.90 x10(3)/mc L 10/08/2024 12:29 AM [facility] Eos % 1.7 % 10/08/2024 12:29 AM [facility] Eos Absolute 0.18 0.00 - 0.40 x10(3)/mc L 10/08/2024 12:29 AM [facility] Basophil % 1.0 % 10/08/2024 12:29 AM [facility] Baso Absolute 0.10 0.00 - 0.10 x10(3)/mc L 10/08/2024 12:29 AM [facility] Immature Gran % 0.8 % 12:29 AM [facility] Immature Gran Absolute 0.08(H) 0.00 - 0.04 x10(3)/mc L 10/08/2024 12:29 AM [facility] Blood VENOUS BLOOD SPECIMEN / Unknown Venipuncture / Unknown 10/08/2024 12:08 AM EST 10/08/2024 12:23 AM EST Hayley Torres MD HEMATOLOGY ORDERABLE S [facility] [place] [address] * (ABNORMAL) Basic Metabolic Panel (10/08/2024 12:08 AM EST) Glucose 151 65 - 199 mg/dL 10/08/2024 12:50 AM [facility] Comment:Glucose Concentratio n >=200 mg/dL plus symptoms is consistent with Diabetes Mellitus. Blood Urea Nitrogen 19 10 - 20 mg/dL 10/08/2024 12:50 AM [facility] Creatinine 0.60(L) 0.80 - 1.50 mg/dL 10/08/2024 12:50 AM [facility] Sodium 135 135 - 145 mMol/L 10/08/2024 12:50 AM [facility] Potassium 3.8 3.5 - 5.0 mMol/L 10/08/2024 12:50 AM [facility] Chloride 101 98 - 107 mMol/L 10/08/2024 12:50 AM [facility] Carbon Dioxide 25 22 - 31 mMol/L 10/08/2024 12:50 AM [facility] Anion Gap 9 5 - 15 mMol/L 10/08/2024 12:50 AM [facility] Calcium 9.2 8.5 - 10.5 mg/dL 10/08/2024 12:50 AM [facility] Est Glomerular Filtration Rate - Male 118 mL/min/1. 73 m?? 10/08/2024 12:50 AM [facility] Comment: This patient's estimated GFR [...] AM EST Hayley Torres MD CHEMISTRY ORDERABLES [facility] [place] [address] * Phosphorus (10/08/2024 12:08 AM EST) Phosphorus 3.4 2.5 - 4.5 mg/dL 10/08/2024 12:50 AM EST [facility] Blood VENOUS BLOOD SPECIMEN / Unknown Venipuncture / Unknown 10/08/2024 12:08 AM EST 10/08/2024 12:23 AM EST Hayley Torres MD CHEMISTRY ORDERABLES Performing Organization Address City/[facility]/ZIP Co de Phone Number [facility] [place] [address] * Magnesium (10/08/2024 12:08 AM EST) Magnesium 0.85 0.69 - 1.07 mMol/L 10/08/2024 12:50 AM EST [facility] Blood VENOUS BLOOD SPECIMEN / Unknown Venipuncture / Unknown 10/08/2024 12:08 AM EST 10/08/2024 12:23 AM EST Hayley Torres MD CHEMISTRY ORDERABLES Performing Organization Address City/[facility]/ZIP Co de Phone Number [facility] [place] [address] * CK (10/08/2024 12:08 AM EST) Creatine Kinase 24 0 - 200 unit/L 10/08/2024 12:50 AM EST [facility] Blood VENOUS BLOOD SPECIMEN / Unknown Venipuncture / Unknown 10/08/2024 12:08 AM EST 10/08/2024 12:23 AM EST Hayley Torres MD CHEMISTRY ORDERABLES Performing Organization Address City/[facility]/ZIP Co de Phone Number [facility] [place] [address] * POC, GLUCOSE (10/08/2024 12:05 AM EST) Glucometer, POC 100 65 - 199 mg/dL 10/08/2024 12:05 AM EST [facility] Comment:Supplemental ranges: <140 mg/dL before meals <180 mg/dL all other times of the day. Blood CAPILLARY BLOOD / Unknown 10/08/2024 12:05 AM EST 10/08/2024 12:05 AM EST Hayley Torres MD POINT OF CARE TEST O GILDA Performing Organization Address [facility] Co de Phone Number [facility] [place] [address] * POC, GLUCOSE (10/07/2024 8:29 PM EST) Glucometer, POC 107 65 - 199 mg/dL 10/07/2024 8:30 PM EST [facility] Comment:Supplemental ranges: <140 mg/dL before meals <180 mg/dL all other times of the day. Blood CAPILLARY BLOOD / Unknown 10/07/2024 8:29 PM EST 10/07/2024 8:30 PM EST Hayley Torres MD POINT OF CARE TEST O GILDA Performing Organization Address [facility] Co de Phone Number [facility] [place] [address] * POC, GLUCOSE (10/07/2024 4:33 PM EST) Glucometer, POC 129 65 - 199 mg/dL 10/07/2024 4:33 PM EST [facility] Comment:Supplemental ranges: <140 mg/dL before meals <180 mg/dL all other times of the day. Blood CAPILLARY BLOOD / Unknown 10/07/2024 4:33 PM EST 10/07/2024 4:34 PM EST Hayley Torres MD POINT OF CARE TEST O GILDA Performing Organization Address [facility] Co de Phone Number [facility] [place] [address] * (ABNORMAL) POC, GLUCOSE (10/07/2024 10:58 AM EST) Glucometer, POC 221(H) 65 - 199 mg/dL 10/07/2024 10:59 AM EST [facility] Comment:Supplemental ranges: <140 mg/dL before meals <180 mg/dL all other times of the day. Blood CAPILLARY BLOOD / Unknown 10/07/2024 10:58 AM EST 10/07/2024 10:59 AM EST Hayley Torres MD POINT OF CARE TEST O RDERABLES Performing Organization Address City/[facility]/ZIP Co de Phone Number [facility] [place] [address] * (ABNORMAL) POC, GLUCOSE (10/07/2024 7:42 AM EST) Glucometer, POC 201(H) 65 - 199 mg/dL 10/07/2024 7:42 AM EST [facility] Comment:Supplemental ranges: <140 mg/dL before meals <180 mg/dL all other times of the day. Blood CAPILLARY BLOOD / Unknown 10/07/2024 7:42 AM EST 10/07/2024 7:43 AM EST Hayley Torres MD POINT OF CARE TEST O RDERABLES Performing Organization Address City/[facility]/ZIP Co de Phone Number [facility] [place] [address] * POC, GLUCOSE (10/07/2024 3:58 AM EST) Glucometer, POC 150 65 - 199 mg/dL 10/07/2024 3:58 AM EST [facility] Comment:Supplemental ranges: <140 mg/dL before meals <180 mg/dL all other times of the day. Blood CAPILLARY BLOOD / Unknown 10/07/2024 3:58 AM EST 10/07/2024 3:58 AM EST Hayley Torres MD POINT OF CARE TEST O RDERABLES Performing Organization Address City/[facility]/ZIP Co de Phone Number [facility] [place] [address] * (ABNORMAL) CBC (with Diff) (10/07/2024 12:06 AM [facility]) White Blood Cell 11.27(H) 4.00 - 9.50 x10(3)/mc L 10/07/2024 12:19 AM [facility] Red Blood Cell 3.47(L) 4.58 - 5.54 x10(6)/mc L 10/07/2024 12:19 AM [facility] Hemoglobin 10.1(L) 13.7 - 16.5 g/dL 10/07/2024 12:19 AM [facility] Hematocrit 30.9(L) 40.5 - 48.5 % 10/07/2024 12:19 AM [facility] Mean Cell Volume 89.0 82.9 - 93.1 fL 10/07/2024 12:19 AM [facility] Mean Cell Hemoglobin 29.1 27.5 - 32.1 pg 10/07/2024 12:19 AM [facility] Mean Cell Hemoglobin Concentration 32.7 32.0 - 35.7 g/dL 10/07/2024 12:19 AM [facility] Platelet 789(H) 145 - 357 x10(3)/mc L 10/07/2024 12:19 AM [facility] Mean Platelet Volume 9.0 7.6 - 12.9 fL 10/07/2024 12:19 AM [facility] RDW Standard Deviation 45.7(H) 36.0 - 45.0 fL 10/07/2024 12:19 AM [facility] RDW coefficient of variation 14.3(H) 11.4 - 13.8 % 10/07/2024 12:19 AM [facility] NRBC% auto 0.0 % 10/07/2024 12:19 AM [facility] NRBC Absolute <0.01 <0.01 x10(3)/mc L 10/07/2024 12:19 AM [facility] Neutrophil % 62.9 % 10/07/2024 12:19 AM [facility] Neutrophil Absolute (ANC) - Automated 7.09(H) 1.70 - 6.10 x10(3)/mc L 10/07/2024 12:19 AM [facility] Lymph % 28.3 % 10/07/2024 12:19 AM [facility] Lymph Absolute 3.19 0.90 - 3.20 x10(3)/mc L 10/07/2024 12:19 AM [facility] Monocyte % 5.7 % 10/07/2024 12:19 AM [facility] Monocyte Absolute 0.64 0.30 - 0.90 x10(3)/mc L 10/07/2024 12:19 AM [facility] Eos % 1.5 % 10/07/2024 12:19 AM [facility] Eos Absolute 0.17 0.00 - 0.40 x10(3)/mc L 10/07/2024 12:19 AM [facility] Basophil % 0.7 % 10/07/2024 12:19 AM [facility] Baso Absolute 0.08 0.00 - 0.10 x10(3)/mc L 10/07/2024 12:19 AM [facility] Immature Gran % 0.9 % 12:19 AM [facility] Immature Gran Absolute 0.10(H) 0.00 - 0.04 x10(3)/mc L 10/07/2024 12:19 AM [facility] Blood VENOUS BLOOD SPECIMEN / Unknown Venipuncture / Unknown 10/07/2024 12:06 AM EST 10/07/2024 12:11 AM EST Hayley Torres MD HEMATOLOGY ORDERABLE S [facility] [place] [address] * (ABNORMAL) Basic Metabolic Panel (10/07/2024 12:06 AM EST) Glucose 145 65 - 199 mg/dL 10/07/2024 12:40 AM [facility] Comment:Glucose Concentratio n >=200 mg/dL plus symptoms is consistent with Diabetes Mellitus. Blood Urea Nitrogen 18 10 - 20 mg/dL 10/07/2024 12:40 AM [facility] Creatinine 0.61(L) 0.80 - 1.50 mg/dL 10/07/2024 12:40 AM [facility] Sodium 139 135 - 145 mMol/L 10/07/2024 12:40 AM [facility] Potassium 4.0 3.5 - 5.0 mMol/L 10/07/2024 12:40 AM [facility] Chloride 104 98 - 107 mMol/L 10/07/2024 12:40 AM [facility] Carbon Dioxide 25 22 - 31 mMol/L 10/07/2024 12:40 AM [facility] Anion Gap 10 5 - 15 mMol/L 10/07/2024 12:40 AM [facility] Calcium 9.0 8.5 - 10.5 mg/dL 10/07/2024 12:40 AM [facility] Est Glomerular Filtration Rate - Male 117 mL/min/1. 73 m?? 10/07/2024 12:40 AM [facility] Comment: This patient's estimated GFR [...] AM EST Hayley Torres MD CHEMISTRY ORDERABLES [facility] [place] [address] * Phosphorus (10/07/2024 12:06 AM EST) Phosphorus 4.2 2.5 - 4.5 mg/dL 10/07/2024 12:40 AM EST [facility] Blood VENOUS BLOOD SPECIMEN / Unknown Venipuncture / Unknown 10/07/2024 12:06 AM EST 10/07/2024 12:11 AM EST Hayley Torres MD CHEMISTRY ORDERABLES Performing Organization Address City/[facility]/ZIP Co de Phone Number [facility] [place] [address] * Magnesium (10/07/2024 12:06 AM EST) Magnesium 0.85 0.69 - 1.07 mMol/L 10/07/2024 12:40 AM EST [facility] Blood VENOUS BLOOD SPECIMEN / Unknown Venipuncture / Unknown 10/07/2024 12:06 AM EST 10/07/2024 12:11 AM EST Hayley Torres MD CHEMISTRY ORDERABLES Performing Organization Address City/[facility]/ZIP Co de Phone Number [facility] [place] [address] * POC, GLUCOSE (10/07/2024 12:04 AM EST) Glucometer, POC 149 65 - 199 mg/dL 10/07/2024 12:04 AM EST [facility] Comment:Supplemental ranges: <140 mg/dL before meals <180 mg/dL all other times of the day. Blood CAPILLARY BLOOD / Unknown 10/07/2024 12:04 AM EST 10/07/2024 12:05 AM EST Hayley Torres MD POINT OF CARE TEST O GILDA Performing Organization Address [facility] Co de Phone Number [facility] [place] [address] * POC, GLUCOSE (10/06/2024 7:24 PM EST) Glucometer, POC 151 65 - 199 mg/dL 10/06/2024 7:24 PM EST [facility] Comment:Supplemental ranges: <140 mg/dL before meals <180 mg/dL all other times of the day. Blood CAPILLARY BLOOD / Unknown 10/06/2024 7:24 PM EST 10/06/2024 7:24 PM EST Hayley Torres MD POINT OF CARE TEST O GILDA Performing Organization Address [facility] Co de Phone Number [facility] [place] [address] * POC, GLUCOSE (10/06/2024 5:32 PM EST) Glucometer, POC 126 65 - 199 mg/dL 10/06/2024 5:32 PM EST [facility] Comment:Supplemental ranges: <140 mg/dL before meals <180 mg/dL all other times of the day. Blood CAPILLARY BLOOD / Unknown 10/06/2024 5:32 PM EST 10/06/2024 5:32 PM EST Hayley Torres MD POINT OF CARE TEST O GILDA Performing Organization Address [facility] Co de Phone Number [facility] [place] [address] * XR PICC Placement Over 5 Years with Imaging Guidance (IV Team) (10/06/2024 3:04 PM EST) WORKSTATION ID [id number] DH RAD Anatomical Region Laterality Modality N/A [...] who have questions please contact the health human services care specialist that requested your imaging first. [...] patients who have questions please contactthe health human services care specialist that requested your imaging first. Hayley Torres MD IMG FLUORO ORDERABLE S * Place PICC Line: Contact Vascular Access Page [phone] Extremity to exclude: No restrictions; Is PICC [...] to the planned procedure. Hand Hygiene: The greenhouse staff did perform hand hygiene prior to line insertion. Catheter type: PICC Lot number: [id number] Procedure Technique: Skin was prepped with chlorhexidine. [...] - 199 mg/dL 10/06/2024 12:12 PM EST [facility] Comment:Supplemental ranges: <140 mg/dL before meals <180 mg/dL all other times of the day. Blood CAPILLARY BLOOD / Unknown 10/06/2024 12:12 PM EST 10/06/2024 12:12 PM EST Hayley Torres MD POINT OF CARE TEST O GILDA Performing Organization Address [facility] Co de Phone Number [facility] [place] [address] * (ABNORMAL) POC, GLUCOSE (10/06/2024 7:34 AM EST) Glucometer, POC 209(H) 65 - 199 mg/dL 10/06/2024 7:34 AM EST [facility] Comment:Supplemental ranges: <140 mg/dL before meals <180 mg/dL all other times of the day. Blood CAPILLARY BLOOD / Unknown 10/06/2024 7:34 AM EST 10/06/2024 7:34 AM EST Hayley Torres MD POINT OF CARE TEST O RDERAHERNANDEZ Performing Organization Address City/[facility]/ZIP Co de Phone Number [facility] [place] [address] * POC, GLUCOSE (10/06/2024 3:29 AM EST) [facility] Glucometer, POC 151 65 - 199 mg/dL 10/06/2024 3:29 AM EST [facility] Comment:Supplemental ranges: <140 mg/dL before meals <180 mg/dL all other times of the day. Blood CAPILLARY BLOOD / Unknown 10/06/2024 3:29 AM EST 10/06/2024 3:29 AM EST Hayley Torres MD POINT OF CARE TEST O RDERABLES Performing Organization Address City/[facility]/ZIP Co de Phone Number [facility] [place] [address] * Vancomycin Level, Random (10/06/2024 12:03 AM EST) [facility] Vancomycin, Random 20.5 mg/L 2023 9:00 AM EST [facility] Comment:This level is for de termination of the patient's vancomycin dozt-vmdvg-zje-curve (AUC) value. Contact the inpatient pharmacy for interpretation. Blood VENOUS BLOOD SPECIMEN / Unknown Venipuncture / Unknown 10/06/2024 12:03 AM EST 10/06/2024 12:15 AM EST Hayley Torres MD CHEMISTRY ORDERABLES Performing Organization Address City/[facility]/ZIP Co de Phone Number [facility] [place] [address] * (ABNORMAL) CBC (with Diff) (10/06/2024 12:03 AM EST) [facility] White Blood Cell 12.26(H) 4.00 - 9.50 x10(3)/mc L 10/06/2024 12:19 AM EST [facility] Red Blood Cell 3.49(L) 4.58 - 5.54 x10(6)/mc L 10/06/2024 12:19 AM EST [facility] Hemoglobin 10.1(L) 13.7 - 16.5 g/dL 10/06/2024 12:19 AM EST [facility] Hematocrit 30.9(L) 40.5 - 48.5 % 10/06/2024 12:19 AM [facility] Mean Cell Volume 88.5 82.9 - 93.1 fL 10/06/2024 12:19 AM [facility] Mean Cell Hemoglobin 28.9 27.5 - 32.1 pg 10/06/2024 12:19 AM [facility] Mean Cell Hemoglobin Concentration 32.7 32.0 - 35.7 g/dL 10/06/2024 12:19 AM [facility] Platelet 772(H) 145 - 357 x10(3)/mc L 10/06/2024 12:19 AM [facility] Mean Platelet Volume 9.0 7.6 - 12.9 fL 10/06/2024 12:19 AM [facility] RDW Standard Deviation 46.0(H) 36.0 - 45.0 fL 10/06/2024 12:19 AM [facility] RDW coefficient of variation 14.5(H) 11.4 - 13.8 % 10/06/2024 12:19 AM [facility] NRBC% auto 0.0 % 10/06/2024 12:19 AM [facility] NRBC Absolute <0.01 <0.01 x10(3)/mc L 10/06/2024 12:19 AM [facility] Neutrophil % 66.7 % 10/06/2024 12:19 AM [facility] Neutrophil Absolute (ANC) - Automated 8.18(H) 1.70 - 6.10 x10(3)/mc L 10/06/2024 12:19 AM [facility] Lymph % 24.1 % 10/06/2024 12:19 AM [facility] Lymph Absolute 2.95 0.90 - 3.20 x10(3)/mc L 10/06/2024 12:19 AM [facility] Monocyte % 6.2 % 10/06/2024 12:19 AM [facility] Monocyte Absolute 0.76 0.30 - 0.90 x10(3)/mc L 10/06/2024 12:19 AM [facility] Eos % 1.3 % 10/06/2024 12:19 AM [facility] Eos Absolute 0.16 0.00 - 0.40 x10(3)/mc L 10/06/2024 12:19 AM [facility] Basophil % 0.5 % 10/06/2024 12:19 AM [facility] Baso Absolute 0.06 0.00 - 0.10 x10(3)/mc L 10/06/2024 12:19 AM [facility] Immature Gran % 1.2 % 12:19 AM [facility] Immature Gran Absolute 0.15(H) 0.00 - 0.04 x10(3)/mc L 10/06/2024 12:19 AM [facility] Blood VENOUS BLOOD SPECIMEN / Unknown Venipuncture / Unknown 10/06/2024 12:03 AM EST 10/06/2024 12:15 AM EST Hayley Torres MD HEMATOLOGY ORDERABLE S [facility] [place] [address] * Basic Metabolic Panel (10/06/2024 12:03 AM EST) Glucose 94 65 - 199 mg/dL 10/06/2024 12:44 AM [facility] Comment:Glucose Concentratio n >=200 mg/dL plus symptoms is consistent with Diabetes Mellitus. Blood Urea Nitrogen 17 10 - 20 mg/dL 10/06/2024 12:44 AM [facility] Creatinine 0.85 0.80 - 1.50 mg/dL 10/06/2024 12:44 AM [facility] Sodium 139 135 - 145 mMol/L 10/06/2024 12:44 AM [facility] Potassium 4.3 3.5 - 5.0 mMol/L 10/06/2024 12:44 AM [facility] Chloride 103 98 - 107 mMol/L 10/06/2024 12:44 AM [facility] Carbon Dioxide 22 22 - 31 mMol/L 10/06/2024 12:44 AM [facility] Anion Gap 14 5 - 15 mMol/L 10/06/2024 12:44 AM [facility] Calcium 8.8 8.5 - 10.5 mg/dL 10/06/2024 12:44 AM [facility] Est Glomerular Filtration Rate - Male 106 mL/min/1. 73 m?? 10/06/2024 12:44 AM [facility] Comment: This patient's estimated GFR [...] AM EST Hayley Torres MD CHEMISTRY ORDERABLES [facility] [place] [address] * Phosphorus (10/06/2024 12:03 AM EST) Phosphorus 4.3 2.5 - 4.5 mg/dL 10/06/2024 12:44 AM [facility] Blood VENOUS BLOOD SPECIMEN / Unknown Venipuncture / Unknown 10/06/2024 12:03 AM EST 10/06/2024 12:15 AM EST Hayley Torres MD CHEMISTRY ORDERABLES Performing Organization Address [facility] Co de Phone Number [facility] [place] [address] * Magnesium (10/06/2024 12:03 AM EST) Magnesium 0.83 0.69 - 1.07 mMol/L 10/06/2024 12:44 AM EST [facility] Blood VENOUS BLOOD SPECIMEN / Unknown Venipuncture / Unknown 10/06/2024 12:03 AM EST 10/06/2024 12:15 AM EST Hayley Torres MD CHEMISTRY ORDERABLES Performing Organization Address [facility] Co de Phone Number [facility] [place] [address] * POC, GLUCOSE (10/06/2024 12:02 AM EST) Glucometer, POC 98 65 - 199 mg/dL 10/06/2024 12:02 AM EST [facility] Comment:Supplemental ranges: <140 mg/dL before meals <180 mg/dL all other times of the day. Blood CAPILLARY BLOOD / Unknown 10/06/2024 12:02 AM EST 10/06/2024 12:02 AM EST Hayley Torres MD POINT OF CARE TEST O RDERABLES Performing Organization Address City/[facility]/ZIP Co de Phone Number [facility] [place] [address] * POC, GLUCOSE (10/05/2024 7:22 PM EST) Glucometer, POC 186 65 - 199 mg/dL 10/05/2024 7:23 PM EST [facility] Comment:Supplemental ranges: <140 mg/dL before meals <180 mg/dL all other times of the day. Blood CAPILLARY BLOOD / Unknown 10/05/2024 7:22 PM EST 10/05/2024 7:23 PM EST Hayley Torres MD POINT OF CARE TEST O GILDA Performing Organization Address [facility]/ZIP Co de Phone Number [facility] [place] [address] * POC, GLUCOSE (10/05/2024 5:35 PM EST) Glucometer, POC 177 65 - 199 mg/dL 10/05/2024 5:35 PM EST [facility] Comment:Supplemental ranges: <140 mg/dL before meals <180 mg/dL all other times of the day. Blood CAPILLARY BLOOD / Unknown 10/05/2024 5:35 PM EST 10/05/2024 5:35 PM EST Hayley Torres MD POINT OF CARE TEST O GILDA Performing Organization Address [facility] Co de Phone Number [facility] [place] [address] * POC, GLUCOSE (10/05/2024 3:57 PM EST) Glucometer, POC 141 65 - 199 mg/dL 10/05/2024 3:57 PM EST [facility] Comment:Supplemental ranges: <140 mg/dL before meals <180 mg/dL all other times of the day. Blood CAPILLARY BLOOD / Unknown 10/05/2024 3:57 PM EST 10/05/2024 3:57 PM EST Hayley Torres MD POINT OF CARE TEST O GILDA Performing Organization Address City/[facility]/ZIP Co de Phone Number [facility] [place] [place] [address] * POC, GLUCOSE (10/05/2024 11:50 AM EST) Glucometer, POC 134 65 - 199 mg/dL 10/05/2024 11:50 AM EST [facility] Comment:Supplemental ranges: <140 mg/dL before meals <180 mg/dL all other times of the day. Blood CAPILLARY BLOOD / Unknown 10/05/2024 11:50 AM EST 10/05/2024 11:50 AM EST Hayley Torres MD POINT OF CARE TEST O GILDA Performing Organization Address City/[facility]/ZIP Co de Phone Number [facility] [place] [address] * POC, GLUCOSE (10/05/2024 7:51 AM EST) Glucometer, POC 114 65 - 199 mg/dL 10/05/2024 7:51 AM EST [facility] Comment:Supplemental ranges: <140 mg/dL before meals <180 mg/dL all other times of the day. Blood CAPILLARY BLOOD / Unknown 10/05/2024 7:51 AM EST 10/05/2024 7:51 AM EST Hayley Torres MD POINT OF CARE TEST O GILDA Performing Organization Address [facility] Co de Phone Number [facility] [place] [place] [address] * POC, GLUCOSE (10/05/2024 4:18 AM EST) Glucometer, POC 147 65 - 199 mg/dL 10/05/2024 4:18 AM EST [facility] [facility] Comment:Supplemental ranges: <140 mg/dL before meals <180 mg/dL all other times of the day. Blood CAPILLARY BLOOD / Unknown 10/05/2024 4:18 AM EST 10/05/2024 4:18 AM EST Hayley Torres MD POINT OF CARE TEST O GILDA Performing Organization Address City/[facility] Co de Phone Number [facility] [place] [address] * (ABNORMAL) CBC (with Diff) (10/04/2024 11:50 PM EST) White Blood Cell 12.73(H) 4.00 - 9.50 x10(3)/mc L 10/05/2024 12:10 AM [facility] Red Blood Cell 3.45(L) 4.58 - 5.54 x10(6)/mc L 10/05/2024 12:10 AM [facility] Hemoglobin 9.8(L) 13.7 - 16.5 g/dL 10/05/2024 12:10 AM [facility] Hematocrit 30.6(L) 40.5 - 48.5 % 10/05/2024 12:10 AM [facility] Mean Cell Volume 88.7 82.9 - 93.1 fL 10/05/2024 12:10 AM [facility] Mean Cell Hemoglobin 28.4 27.5 - 32.1 pg 10/05/2024 12:10 AM [facility] Mean Cell Hemoglobin Concentration 32.0 32.0 - 35.7 g/dL 10/05/2024 12:10 AM [facility] Platelet 709(H) 145 - 357 x10(3)/mc L 10/05/2024 12:10 AM [facility] Mean Platelet Volume 8.9 7.6 - 12.9 fL 10/05/2024 12:10 AM [facility] RDW Standard Deviation 45.4(H) 36.0 - 45.0 fL 10/05/2024 12:10 AM [facility] RDW coefficient of variation 14.3(H) 11.4 - 13.8 % 10/05/2024 12:10 AM [facility] NRBC% auto 0.0 % 10/05/2024 12:10 AM [facility] NRBC Absolute <0.01 <0.01 x10(3)/mc L 10/05/2024 12:10 AM [facility] Neutrophil % 68.5 % 10/05/2024 12:10 AM [facility] Neutrophil Absolute (ANC) - Automated 8.72(H) 1.70 - 6.10 x10(3)/mc L 10/05/2024 12:10 AM EST [facility] Lymph % 21.3 % 10/05/2024 12:10 AM [facility] Lymph Absolute 2.71 0.90 - 3.20 x10(3)/mc L 10/05/2024 12:10 AM EST [facility] Monocyte % 5.5 % 10/05/2024 12:10 AM [facility] Monocyte Absolute 0.70 0.30 - 0.90 x10(3)/mc L 10/05/2024 12:10 AM [facility] Eos % 1.6 % 10/05/2024 12:10 AM [facility] Eos Absolute 0.20 0.00 - 0.40 x10(3)/mc L 10/05/2024 12:10 AM [facility] Basophil % 0.5 % 10/05/2024 12:10 AM [facility] Baso Absolute 0.07 0.00 - 0.10 x10(3)/mc L 10/05/2024 12:10 AM [facility] Immature Gran % 2.6 % 12:10 AM [facility] Immature Gran Absolute 0.33(H) 0.00 - 0.04 x10(3)/mc L 10/05/2024 12:10 AM EST [facility] Blood VENOUS BLOOD SPECIMEN / Unknown Venipuncture / Unknown 10/04/2024 11:50 PM EST 10/05/2024 12:03 AM EST Hayley Torres MD HEMATOLOGY ORDERABLE S [facility] [place] [address] * (ABNORMAL) Basic Metabolic Panel (10/04/2024 11:50 PM EST) Glucose 104 65 - 199 mg/dL 10/05/2024 12:35 AM [facility] Comment:Glucose Concentratio n >=200 mg/dL plus symptoms is consistent with Diabetes Mellitus. Blood Urea Nitrogen 13 10 - 20 mg/dL 10/05/2024 12:35 AM [facility] Creatinine 0.55(L) 0.80 - 1.50 mg/dL 10/05/2024 12:35 AM [facility] Sodium 140 135 - 145 mMol/L 10/05/2024 12:35 AM [facility] Potassium 3.9 3.5 - 5.0 mMol/L 10/05/2024 12:35 AM [facility] Chloride 105 98 - 107 mMol/L 10/05/2024 12:35 AM [facility] Carbon Dioxide 24 22 - 31 mMol/L 10/05/2024 12:35 AM [facility] Anion Gap 11 5 - 15 mMol/L 10/05/2024 12:35 AM [facility] Calcium 9.0 8.5 - 10.5 mg/dL 10/05/2024 12:35 AM [facility] Est Glomerular Filtration Rate - Male 121 mL/min/1. 73 m?? 10/05/2024 12:35 AM [facility] Comment: This patient's estimated GFR [...] AM EST Hayley Torres MD CHEMISTRY ORDERABLES [facility] [place] [address] * Phosphorus (10/04/2024 11:50 PM EST) Phosphorus 4.2 2.5 - 4.5 mg/dL 10/05/2024 12:35 AM EST [facility] Blood VENOUS BLOOD SPECIMEN / Unknown Venipuncture / Unknown 10/04/2024 11:50 PM EST 10/05/2024 12:03 AM EST Hayley Torres MD CHEMISTRY ORDERABLES Performing Organization Address [facility] Co de Phone Number [facility] [place] [address] * Magnesium (10/04/2024 11:50 PM EST) Magnesium 0.89 0.69 - 1.07 mMol/L 10/05/2024 12:35 AM EST [facility] Blood VENOUS BLOOD SPECIMEN / Unknown Venipuncture / Unknown 10/04/2024 11:50 PM EST 10/05/2024 12:03 AM EST Hayley Torres MD CHEMISTRY ORDERABLES Performing Organization Address City/[facility] Co de Phone Number [facility] [place] [address] * POC, GLUCOSE (10/04/2024 11:36 PM EST) Glucometer, POC 121 65 - 199 mg/dL 10/04/2024 11:36 PM EST [facility] Comment:Supplemental ranges: <140 mg/dL before meals <180 mg/dL all other times of the day. Blood CAPILLARY BLOOD / Unknown 10/04/2024 11:36 PM EST 10/04/2024 11:36 PM EST Hayley Torres MD POINT OF CARE TEST O RDERABLES [facility] [place] [address] * POC, GLUCOSE (10/04/2024 7:32 PM EST) Glucometer, POC 163 65 - 199 mg/dL 10/04/2024 7:32 PM EST [facility] Comment:Supplemental ranges: <140 mg/dL before meals <180 mg/dL all other times of the day. Blood CAPILLARY BLOOD / Unknown 10/04/2024 7:32 PM EST 10/04/2024 7:32 PM EST Hayley Torres MD POINT OF CARE TEST O RDERABLES Performing Organization Address [facility] Co de Phone Number [facility] [place] [address] * EKG 12 Lead (10/04/2024 7:14 PM EST) Ventricular rate 81 BPM MUSE SYSTEM Atrial Rate 81 BPM MUSE SYSTEM P-R Interval 174 ms MUSE SYSTEM QRS Duration 112 ms MUSE SYSTEM Q-T Interval 422 ms MUSE SYSTEM QTC Calculated (Bezet) 490 ms MUSE SYSTEM Calculated P [place] 34 degrees MUSE SYSTEM Calculated R [place] 11 degrees MUSE SYSTEM Calculated T [place] 59 degrees MUSE SYSTEM INTERPRETATION Normal sinus rhythm Cannot rule out Inferior infarct , age undetermined Nonspecific T wave abnormality Borderline ECG When compared with ECG of 29-MAY-2024 14:51, Nonspecific T wave abnormality now evident in Lateral leads Confirmed by MD Robert, Deandre Guadarrama ([id number]) on 10/05/2024 3:35:42 PM MUSE SYSTEM 10/04/2024 7:14 PM EST 10/05/2024 3:35 PM EST Hayley Torres MD ECG ORDERABLES Performing Organization Address [facility] Co de Phone Number MUSE SYSTEM * POC, GLUCOSE (10/04/2024 5:07 PM EST) Glucometer, POC 95 65 - 199 mg/dL 10/04/2024 5:07 PM EST [facility] Comment:Supplemental ranges: <140 mg/dL before meals <180 mg/dL all other times of the day. Blood CAPILLARY BLOOD / Unknown 10/04/2024 5:07 PM EST 10/04/2024 5:07 PM EST Hayley Torres MD POINT OF CARE TEST O RDERAHERNANDEZ [facility] [place] [address] * POC, GLUCOSE (10/04/2024 4:49 PM EST) Glucometer, POC 70 65 - 199 mg/dL 10/04/2024 4:50 PM EST [facility] Comment:Supplemental ranges: <140 mg/dL before meals <180 mg/dL all other times of the day. Blood CAPILLARY BLOOD / Unknown 10/04/2024 4:49 PM EST 10/04/2024 4:50 PM EST Hayley Torres MD POINT OF CARE TEST O GILDA Performing Organization Address City/[facility]/ZIP Co de Phone Number [facility] [place] [address] * POC, GLUCOSE (10/04/2024 11:49 AM EST) Glucometer, POC 93 65 - 199 mg/dL 10/04/2024 11:49 AM EST [facility] Comment:Supplemental ranges: <140 mg/dL before meals <180 mg/dL all other times of the day. Blood CAPILLARY BLOOD / Unknown 10/04/2024 11:49 AM EST 10/04/2024 11:49 AM EST Hayley Torres MD POINT OF CARE TEST O GILDA [facility] [place] [address] * Vancomycin, trough (10/04/2024 7:53 AM EST) Vancomycin, Trough 19.8 10.0 - 20.0 mg/L 10/04/2024 9:16 AM EST [facility] Comment: Varies according to infection source. Blood VENOUS BLOOD SPECIMEN / Unknown Venipuncture / Unknown 10/04/2024 7:53 AM EST 10/04/2024 8:11 AM EST Hayley Torres MD CHEMISTRY ORDERABLES Performing Organization Address [facility] Co de Phone Number [facility] [place] [address] * POC, GLUCOSE (10/04/2024 7:51 AM EST) Glucometer, POC 105 65 - 199 mg/dL 10/04/2024 7:52 AM EST [facility] Comment:Supplemental ranges: <140 mg/dL before meals <180 mg/dL all other times of the day. Blood CAPILLARY BLOOD / Unknown 10/04/2024 7:51 AM EST 10/04/2024 7:52 AM EST Hayley Torres MD POINT OF CARE TEST O RDERABLES Performing Organization Address [facility] de Phone Number [facility] [place] [address] * POC, GLUCOSE (10/04/2024 3:53 AM EST) Glucometer, POC 90 65 - 199 mg/dL 10/04/2024 3:53 AM EST [facility] Comment:Supplemental ranges: <140 mg/dL before meals <180 mg/dL all other times of the day. Blood CAPILLARY BLOOD / Unknown 10/04/2024 3:53 AM EST 10/04/2024 3:53 AM EST Hayley Torres MD POINT OF CARE TEST O RDERABLES Performing Organization Address [facility] Co de Phone Number [facility] [place] [address] * (ABNORMAL) CBC (with Diff) (10/04/2024 12:08 AM EST) [facility] Signature White Blood Cell 12.58(H) 4.00 - 9.50 x10(3)/mc L 10/04/2024 12:51 AM [facility] Red Blood Cell 3.28(L) 4.58 - 5.54 x10(6)/mc L 10/04/2024 12:51 AM [facility] Hemoglobin 9.4(L) 13.7 - 16.5 g/dL 10/04/2024 12:51 AM [facility] Hematocrit 28.8(L) 40.5 - 48.5 % 10/04/2024 12:51 AM [facility] Mean Cell Volume 87.8 82.9 - 93.1 fL 10/04/2024 12:51 AM [facility] Mean Cell Hemoglobin 28.7 27.5 - 32.1 pg 10/04/2024 12:51 AM [facility] Mean Cell Hemoglobin Concentration 32.6 32.0 - 35.7 g/dL 10/04/2024 12:51 AM [facility] Platelet 670(H) 145 - 357 x10(3)/mc L 10/04/2024 12:51 AM [facility] Mean Platelet Volume 9.1 7.6 - 12.9 fL 10/04/2024 12:51 AM [facility] RDW Standard Deviation 44.8 36.0 - 45.0 fL 10/04/2024 12:51 AM [facility] RDW coefficient of variation 13.9(H) 11.4 - 13.8 % 10/04/2024 12:51 AM [facility] NRBC% auto 0.0 % 10/04/2024 12:51 AM [facility] NRBC Absolute <0.01 <0.01 x10(3)/mc L 10/04/2024 12:51 AM [facility] Neutrophil % 60.3 % 10/04/2024 12:51 AM EST [facility] Neutrophil Absolute (ANC) - Automated 7.57(H) 1.70 - 6.10 x10(3)/mc L 10/04/2024 12:51 AM [facility] Lymph % 27.4 % 10/04/2024 12:51 AM [facility] Lymph Absolute 3.45(H) 0.90 - 3.20 x10(3)/mc L 10/04/2024 12:51 AM [facility] Monocyte % 5.4 % 10/04/2024 12:51 AM [facility] Monocyte Absolute 0.68 0.30 - 0.90 x10(3)/mc L 10/04/2024 12:51 AM [facility] Eos % 1.5 % 10/04/2024 12:51 AM [facility] Eos Absolute 0.19 0.00 - 0.40 x10(3)/mc L 10/04/2024 12:51 AM EST [facility] Basophil % 0.6 % 10/04/2024 12:51 AM [facility] Baso Absolute 0.08 0.00 - 0.10 x10(3)/mc L 10/04/2024 12:51 AM [facility] Immature Gran % 4.8 % 12:51 AM [facility] Immature Gran Absolute 0.61(H) 0.00 - 0.04 x10(3)/mc L 10/04/2024 12:51 AM EST [facility] Blood VENOUS BLOOD SPECIMEN / Unknown Venipuncture / Unknown 10/04/2024 12:08 AM EST 10/04/2024 12:15 AM EST Hayley Torres MD HEMATOLOGY ORDERABLE S [facility] [place] [address] * (ABNORMAL) Basic Metabolic Panel (10/04/2024 12:08 AM EST) Glucose 135 65 - 199 mg/dL 10/04/2024 12:53 AM [facility] Comment:Glucose Concentratio n >=200 mg/dL plus symptoms is consistent with Diabetes Mellitus. Blood Urea Nitrogen 19 10 - 20 mg/dL 10/04/2024 12:53 AM [facility] Creatinine 0.56(L) 0.80 - 1.50 mg/dL 10/04/2024 12:53 AM [facility] Sodium 138 135 - 145 mMol/L 10/04/2024 12:53 AM [facility] Potassium 4.4 3.5 - 5.0 mMol/L 10/04/2024 12:53 AM [facility] Chloride 105 98 - 107 mMol/L 10/04/2024 12:53 AM [facility] Carbon Dioxide 24 22 - 31 mMol/L 10/04/2024 12:53 AM [facility] Anion Gap 9 5 - 15 mMol/L 10/04/2024 12:53 AM [facility] Calcium 8.7 8.5 - 10.5 mg/dL 10/04/2024 12:53 AM [facility] Est Glomerular Filtration Rate - Male 120 mL/min/1. 73 m?? 10/04/2024 12:53 AM [facility] Comment: This patient's estimated GFR [...] Torres MD CHEMISTRY ORDERABLES Performing Organization Address City/[facility]/ZIP Co de Phone Number [facility] [place] [address] * Phosphorus (10/04/2024 12:08 AM EST) Phosphorus 3.7 2.5 - 4.5 mg/dL 10/04/2024 12:53 AM EST [facility] Blood VENOUS BLOOD SPECIMEN / Unknown Venipuncture / Unknown 10/04/2024 12:08 AM EST 10/04/2024 12:15 AM EST Hayley Torres MD CHEMISTRY ORDERABLES Performing Organization Address City/[facility] Co de Phone Number [facility] [place] [address] * Magnesium (10/04/2024 12:08 AM EST) Magnesium 0.89 0.69 - 1.07 mMol/L 10/04/2024 12:53 AM EST [facility] Blood VENOUS BLOOD SPECIMEN / Unknown Venipuncture / Unknown 10/04/2024 12:08 AM EST 10/04/2024 12:15 AM EST Hayley Torres MD CHEMISTRY ORDERABLES Performing Organization Address City/[facility]/ZIP Co de Phone Number [facility] [place] [address] * POC, GLUCOSE (10/04/2024 12:01 AM EST) Glucometer, POC 132 65 - 199 mg/dL 10/04/2024 12:02 AM EST [facility] Comment:Supplemental ranges: <140 mg/dL before meals <180 mg/dL all other times of the day. Blood CAPILLARY BLOOD / Unknown 10/04/2024 12:01 AM EST 10/04/2024 12:02 AM EST Hayley Torres MD POINT OF CARE TEST O RDERAHERNANDEZ Performing Organization Address City/[facility]/ZIP Co de Phone Number [facility] [place] [address] * POC, GLUCOSE (10/03/2024 7:56 PM EST) Glucometer, POC 123 65 - 199 mg/dL 10/03/2024 7:56 PM EST [facility] Comment:Supplemental ranges: <140 mg/dL before meals <180 mg/dL all other times of the day. Blood CAPILLARY BLOOD / Unknown 10/03/2024 7:56 PM EST 10/03/2024 7:57 PM EST Hayley Torres MD POINT OF CARE TEST O GILDA Performing Organization Address [facility] Co de Phone Number [facility] [place] [address] * POC, GLUCOSE (10/03/2024 5:29 PM EST) Glucometer, POC 182 65 - 199 mg/dL 10/03/2024 5:30 PM EST [facility] Comment:Supplemental ranges: <140 mg/dL before meals <180 mg/dL all other times of the day. Blood CAPILLARY BLOOD / Unknown 10/03/2024 5:29 PM EST 10/03/2024 5:30 PM EST Hayley Torres MD POINT OF CARE TEST O GILDA Performing Organization Address City/[facility]/ZIP Co de Phone Number [facility] [place] [address] * POC, GLUCOSE (10/03/2024 12:54 PM EST) Glucometer, POC 128 65 - 199 mg/dL 10/03/2024 12:54 PM EST [facility] Comment:Supplemental ranges: <140 mg/dL before meals <180 mg/dL all other times of the day. Blood CAPILLARY BLOOD / Unknown 10/03/2024 12:54 PM EST 10/03/2024 12:54 PM EST Hayley Torres MD POINT OF CARE TEST O GILDA Performing Organization Address [facility] Co de Phone Number [facility] [place] [address] * POC, GLUCOSE (10/03/2024 7:59 AM EST) Glucometer, POC 115 65 - 199 mg/dL 10/03/2024 7:59 AM EST [facility] Comment:Supplemental ranges: <140 mg/dL before meals <180 mg/dL all other times of the day. Blood CAPILLARY BLOOD / Unknown 10/03/2024 7:59 AM EST 10/03/2024 7:59 AM EST Hayley Torres MD POINT OF CARE TEST O GILDA Performing Organization Address [facility] Co de Phone Number [facility] [place] [address] * POC, GLUCOSE (10/03/2024 5:32 AM EST) Glucometer, POC 119 65 - 199 mg/dL 10/03/2024 5:32 AM EST [facility] Comment:Supplemental ranges: <140 mg/dL before meals <180 mg/dL all other times of the day. Blood CAPILLARY BLOOD / Unknown 10/03/2024 5:32 AM EST 10/03/2024 5:32 AM EST Hayley Torres MD POINT OF CARE TEST O GILDA Performing Organization Address City/[facility] Co de Phone Number [facility] [place] [address] * POC, GLUCOSE (10/03/2024 4:16 AM EST) Glucometer, POC 152 65 - 199 mg/dL 10/03/2024 4:17 AM EST [facility] Comment:Supplemental ranges: <140 mg/dL before meals <180 mg/dL all other times of the day. Blood CAPILLARY BLOOD / Unknown 10/03/2024 4:16 AM EST 10/03/2024 4:17 AM EST Hayley Trores MD POINT OF CARE TEST O GILDA [facility] [place] [address] * (ABNORMAL) POC, GLUCOSE (10/03/2024 2:02 AM EST) Glucometer, POC 225(H) 65 - 199 mg/dL 10/03/2024 2:02 AM EST [facility] Comment:Supplemental ranges: <140 mg/dL before meals <180 mg/dL all other times of the day. Blood CAPILLARY BLOOD / Unknown 10/03/2024 2:02 AM EST 10/03/2024 2:02 AM EST Hayley Torres MD POINT OF CARE TEST O GILDA [facility] [place] [address] * (ABNORMAL) CBC (with Diff) (10/03/2024 12:27 AM EST) White Blood Cell 15.33(H) 4.00 - 9.50 x10(3)/mc L 10/03/2024 12:51 AM EST [facility] Red Blood Cell 3.59(L) 4.58 - 5.54 x10(6)/mc L 10/03/2024 12:51 AM EST [facility] Hemoglobin 10.4(L) 13.7 - 16.5 g/dL 10/03/2024 12:51 AM EST [facility] Hematocrit 31.2(L) 40.5 - 48.5 % 10/03/2024 12:51 AM EST [facility] Mean Cell Volume 86.9 82.9 - 93.1 fL 10/03/2024 12:51 AM [facility] Mean Cell Hemoglobin 29.0 27.5 - 32.1 pg 10/03/2024 12:51 AM [facility] Mean Cell Hemoglobin Concentration 33.3 32.0 - 35.7 g/dL 10/03/2024 12:51 AM [facility] Platelet 693(H) 145 - 357 x10(3)/mc L 10/03/2024 12:51 AM [facility] Mean Platelet Volume 9.2 7.6 - 12.9 fL 10/03/2024 12:51 AM [facility] RDW Standard Deviation 42.4 36.0 - 45.0 fL 10/03/2024 12:51 AM [facility] RDW coefficient of variation 13.6 11.4 - 13.8 % 10/03/2024 12:51 AM [facility] NRBC% auto 0.0 % 10/03/2024 12:51 AM [facility] NRBC Absolute <0.01 <0.01 x10(3)/mc L 10/03/2024 12:51 AM [facility] Neutrophil % 77.1 % 10/03/2024 12:51 AM [facility] Neutrophil Absolute (ANC) - Automated 11.83(H) 1.70 - 6.10 x10(3)/mc L 10/03/2024 12:51 AM [facility] Lymph % 13.4 % 10/03/2024 12:51 AM [facility] Lymph Absolute 2.05 0.90 - 3.20 x10(3)/mc L 10/03/2024 12:51 AM [facility] Monocyte % 2.9 % 10/03/2024 12:51 AM [facility] Monocyte Absolute 0.45 0.30 - 0.90 x10(3)/mc L 10/03/2024 12:51 AM [facility] Eos % 0.5 % 10/03/2024 12:51 AM EST [facility] Eos Absolute 0.07 0.00 - 0.40 x10(3)/mc L 10/03/2024 12:51 AM [facility] Basophil % 0.4 % 10/03/2024 12:51 AM [facility] Baso Absolute 0.06 0.00 - 0.10 x10(3)/mc L 10/03/2024 12:51 AM [facility] Immature Gran % 5.7 % 12:51 AM [facility] Immature Gran Absolute 0.87(H) 0.00 - 0.04 x10(3)/mc L 10/03/2024 12:51 AM [facility] Blood VENOUS BLOOD SPECIMEN / Unknown Venipuncture / Unknown 10/03/2024 12:27 AM EST 10/03/2024 12:47 AM EST Hayley Torres MD HEMATOLOGY ORDERABLE S Performing Organization Address City/State/[facility] Co de Phone Number [facility] [place] [address] * (ABNORMAL) Basic Metabolic Panel (10/03/2024 12:27 AM EST) Glucose 208(H) 65 - 199 mg/dL 10/03/2024 1:14 AM [facility] Comment:Glucose Concentratio n >=200 mg/dL plus symptoms is consistent with Diabetes Mellitus. Blood Urea Nitrogen 15 10 - 20 mg/dL 10/03/2024 1:14 AM [facility] Creatinine 0.51(L) 0.80 - 1.50 mg/dL 10/03/2024 1:14 AM [facility] Sodium 136 135 - 145 mMol/L 10/03/2024 1:14 AM [facility] Potassium 4.1 3.5 - 5.0 mMol/L 10/03/2024 1:14 AM [facility] Chloride 103 98 - 107 mMol/L 10/03/2024 1:14 AM [facility] Carbon Dioxide 20(L) 22 - 31 mMol/L 10/03/2024 1:14 AM [facility] Anion Gap 13 5 - 15 mMol/L 10/03/2024 1:14 AM [facility] Calcium 8.4(L) 8.5 - 10.5 mg/dL 10/03/2024 1:14 AM [facility] Est Glomerular Filtration Rate - Male 124 mL/min/1. 73 m?? 10/03/2024 1:14 AM [facility] Comment: This patient's estimated GFR [...] Torres MD CHEMISTRY ORDERABLES Performing Organization Address City/State/[facility] Co de Phone Number [facility] [place] [address] * Phosphorus (10/03/2024 12:27 AM EST) Phosphorus 3.5 2.5 - 4.5 mg/dL 10/03/2024 1:14 AM [facility] Blood VENOUS BLOOD SPECIMEN / Unknown Venipuncture / Unknown 10/03/2024 12:27 AM EST 10/03/2024 12:47 AM EST Hayley Torres MD CHEMISTRY ORDERABLES Performing Organization Address City/[facility]/ZIP Co de Phone Number [facility] [place] [address] * Magnesium (10/03/2024 12:27 AM EST) Magnesium 0.83 0.69 - 1.07 mMol/L 10/03/2024 1:14 AM EST [facility] Blood VENOUS BLOOD SPECIMEN / Unknown Venipuncture / Unknown 10/03/2024 12:27 AM EST 10/03/2024 12:47 AM EST Hayley Torres MD CHEMISTRY ORDERABLES Performing Organization Address [facility] Co de Phone Number [facility] [place] [address] * (ABNORMAL) POC, GLUCOSE (10/03/2024 12:13 AM EST) Glucometer, POC 255(H) 65 - 199 mg/dL 10/03/2024 12:14 AM EST [facility] Comment:Supplemental ranges: <140 mg/dL before meals <180 mg/dL all other times of the day. Blood CAPILLARY BLOOD / Unknown 10/03/2024 12:13 AM EST 10/03/2024 12:14 AM EST Hayley Torres MD POINT OF CARE TEST O RDERABLES Performing Organization Address [facility] Co de Phone Number [facility] [place] [address] * POC, GLUCOSE (10/02/2024 8:17 PM EST) Glucometer, POC 177 65 - 199 mg/dL 10/02/2024 8:17 PM EST [facility] Comment:Supplemental ranges: <140 mg/dL before meals <180 mg/dL all other times of the day. Blood CAPILLARY BLOOD / Unknown 10/02/2024 8:17 PM EST 10/02/2024 8:17 PM EST Hayley Torres MD POINT OF CARE TEST O RDTYESHA Performing Organization Address [facility]/ZIP Co de Phone Number [facility] [place] [address] * POC, GLUCOSE (10/02/2024 6:22 PM EST) Glucometer, POC 172 65 - 199 mg/dL 10/02/2024 6:22 PM EST [facility] Comment:Supplemental ranges: <140 mg/dL before meals <180 mg/dL all other times of the day. Blood CAPILLARY BLOOD / Unknown 10/02/2024 6:22 PM EST 10/02/2024 6:22 PM EST Hayley Torres MD POINT OF CARE TEST O GILDA Performing Organization Address [facility] Co de Phone Number [facility] [place] [address] * POC, GLUCOSE (10/02/2024 5:01 PM EST) Glucometer, POC 104 65 - 199 mg/dL 10/02/2024 5:01 PM EST [facility] Comment:Supplemental ranges: <140 mg/dL before meals <180 mg/dL all other times of the day. Blood CAPILLARY BLOOD / Unknown 10/02/2024 5:01 PM EST 10/02/2024 5:01 PM EST Hayley Torres MD POINT OF CARE TEST O GILDA Performing Organization Address City/[facility]/ZIP Co de Phone Number [facility] [place] [address] * POC, GLUCOSE (10/02/2024 3:05 PM EST) Glucometer, POC 113 65 - 199 mg/dL 10/02/2024 3:06 PM EST [facility] Comment:Supplemental ranges: <140 mg/dL before meals <180 mg/dL all other times of the day. Blood CAPILLARY BLOOD / Unknown 10/02/2024 3:05 PM EST 10/02/2024 3:06 PM EST Hayley Torres MD POINT OF CARE TEST O GILDA Performing Organization Address City/[facility]/ZIP Co de Phone Number [facility] [place] [address] * POC, GLUCOSE (10/02/2024 11:12 AM EST) Glucometer, POC 146 65 - 199 mg/dL 10/02/2024 11:12 AM EST [facility] Comment:Supplemental ranges: <140 mg/dL before meals <180 mg/dL all other times of the day. Blood CAPILLARY BLOOD / Unknown 10/02/2024 11:12 AM EST 10/02/2024 11:12 AM EST Hayley Torres MD POINT OF CARE TEST O GILDA Performing Organization Address [facility] Co de Phone Number [facility] [place] [address] * POC, GLUCOSE (10/02/2024 8:12 AM EST) Glucometer, POC 131 65 - 199 mg/dL 10/02/2024 8:12 AM EST [facility] Comment:Supplemental ranges: <140 mg/dL before meals <180 mg/dL all other times of the day. Blood CAPILLARY BLOOD / Unknown 10/02/2024 8:12 AM EST 10/02/2024 8:12 AM EST Hayley Torres MD POINT OF CARE TEST O GILDA Performing Organization Address City/[facility]/ZIP Co de Phone Number [facility] [place] [address] * POC, GLUCOSE (10/02/2024 4:19 AM EST) Glucometer, POC 131 65 - 199 mg/dL 10/02/2024 4:19 AM EST [facility] Comment:Supplemental ranges: <140 mg/dL before meals <180 mg/dL all other times of the day. Blood CAPILLARY BLOOD / Unknown 10/02/2024 4:19 AM EST 10/02/2024 4:19 AM EST Hayley Torres MD POINT OF CARE TEST O RDERABLES [facility] [place] [address] * Phosphorus (10/02/2024 12:41 AM EST) Phosphorus 4.1 2.5 - 4.5 mg/dL 10/02/2024 1:21 AM EST [facility] Blood VENOUS BLOOD SPECIMEN / Unknown Venipuncture / Unknown 10/02/2024 12:41 AM EST 10/02/2024 12:45 AM EST Hayley Torres MD CHEMISTRY ORDERABLES Performing Organization Address City/[facility] Co de Phone Number [facility] [place] [address] * Magnesium (10/02/2024 12:41 AM EST) Magnesium 0.85 0.69 - 1.07 mMol/L 10/02/2024 1:21 AM EST [facility] Blood VENOUS BLOOD SPECIMEN / Unknown Venipuncture / Unknown 10/02/2024 12:41 AM EST 10/02/2024 12:45 AM EST Hayley Torres MD CHEMISTRY ORDERABLES Performing Organization Address City/[facility]/ZIP Co de Phone Number [facility] [place] [address] * (ABNORMAL) Basic Metabolic Panel (10/02/2024 12:41 AM EST) Glucose 113 65 - 199 mg/dL 10/02/2024 1:21 AM EST [facility] Comment:Glucose Concentratio n >=200 mg/dL plus symptoms is consistent with Diabetes Mellitus. Blood Urea Nitrogen 11 10 - 20 mg/dL 10/02/2024 1:21 AM [facility] Creatinine 0.49(L) 0.80 - 1.50 mg/dL 10/02/2024 1:21 AM [facility] Sodium 138 135 - 145 mMol/L 10/02/2024 1:21 AM [facility] Potassium 3.9 3.5 - 5.0 mMol/L 10/02/2024 1:21 AM [facility] Chloride 105 98 - 107 mMol/L 10/02/2024 1:21 AM [facility] Carbon Dioxide 23 22 - 31 mMol/L 10/02/2024 1:21 AM [facility] Anion Gap 10 5 - 15 mMol/L 10/02/2024 1:21 AM [facility] Calcium 8.2(L) 8.5 - 10.5 mg/dL 10/02/2024 1:21 AM [facility] Est Glomerular Filtration Rate - Male 125 mL/min/1. 73 m?? 10/02/2024 1:21 AM [facility] Comment: This patient's estimated GFR [...] AM EST Hayley Torres MD CHEMISTRY ORDERABLES [facility] [place] [address] * (ABNORMAL) CBC (with Diff) (10/02/2024 12:41 AM EST) White Blood Cell 10.93(H) 4.00 - 9.50 x10(3)/mc L 10/02/2024 1:04 AM [facility] Red Blood Cell 3.30(L) 4.58 - 5.54 x10(6)/mc L 10/02/2024 1:04 AM [facility] Hemoglobin 9.6(L) 13.7 - 16.5 g/dL 10/02/2024 1:04 AM [facility] Hematocrit 28.6(L) 40.5 - 48.5 % 10/02/2024 1:04 AM [facility] Mean Cell Volume 86.7 82.9 - 93.1 fL 10/02/2024 1:04 AM [facility] Mean Cell Hemoglobin 29.1 27.5 - 32.1 pg 10/02/2024 1:04 AM [facility] Mean Cell Hemoglobin Concentration 33.6 32.0 - 35.7 g/dL 10/02/2024 1:04 AM [facility] Platelet 546(H) 145 - 357 x10(3)/mc L 10/02/2024 1:04 AM [facility] Mean Platelet Volume 9.0 7.6 - 12.9 fL 10/02/2024 1:04 AM [facility] RDW Standard Deviation 42.7 36.0 - 45.0 fL 10/02/2024 1:04 AM [facility] RDW coefficient of variation 13.3 11.4 - 13.8 % 10/02/2024 1:04 AM [facility] NRBC% auto 0.0 % 10/02/2024 1:04 AM [facility] NRBC Absolute <0.01 <0.01 x10(3)/mc L 10/02/2024 1:04 AM [facility] Neutrophil % 58.4 % 10/02/2024 1:04 AM [facility] Neutrophil Absolute (ANC) - Automated 6.38(H) 1.70 - 6.10 x10(3)/mc L 10/02/2024 1:04 AM [facility] Lymph % 23.9 % 10/02/2024 1:04 AM [facility] Lymph Absolute 2.61 0.90 - 3.20 x10(3)/mc L 10/02/2024 1:04 AM [facility] Monocyte % 5.6 % 10/02/2024 1:04 AM [facility] Monocyte Absolute 0.61 0.30 - 0.90 x10(3)/mc L 10/02/2024 1:04 AM [facility] Eos % 1.6 % 10/02/2024 1:04 AM [facility] Eos Absolute 0.18 0.00 - 0.40 x10(3)/mc L 10/02/2024 1:04 AM [facility] Basophil % 0.8 % 10/02/2024 1:04 AM [facility] Baso Absolute 0.09 0.00 - 0.10 x10(3)/mc L 10/02/2024 1:04 AM [facility] Immature Gran % 9.7 % 1:04 AM [facility] Immature Gran Absolute 1.06(H) 0.00 - 0.04 x10(3)/mc L 10/02/2024 1:04 AM [facility] Blood VENOUS BLOOD SPECIMEN / Unknown Venipuncture / Unknown 10/02/2024 12:41 AM EST 10/02/2024 12:45 AM EST Hayley Torres MD HEMATOLOGY ORDERABLE S [facility] [place] [address] * POC, GLUCOSE (10/02/2024 12:40 AM EST) Glucometer, POC 116 65 - 199 mg/dL 10/02/2024 12:41 AM EST [facility] Comment:Supplemental ranges: <140 mg/dL before meals <180 mg/dL all other times of the day. Blood CAPILLARY BLOOD / Unknown 10/02/2024 12:40 AM EST 10/02/2024 12:41 AM EST Hayley Torrse MD POINT OF CARE TEST O RDERAHERNANDEZ Performing Organization Address City/[facility] Co de Phone Number [facility] [place] [address] * POC, GLUCOSE (10/01/2024 8:11 PM EST) Glucometer, POC 123 65 - 199 mg/dL 10/01/2024 8:11 PM EST [facility] Comment:Supplemental ranges: <140 mg/dL before meals <180 mg/dL all other times of the day. Blood CAPILLARY BLOOD / Unknown 10/01/2024 8:11 PM EST 10/01/2024 8:11 PM EST Hayley Torres MD POINT OF CARE TEST O GILDA Performing Organization Address City/[facility]/ZIP Co de Phone Number [facility] [place] [address] * POC, GLUCOSE (10/01/2024 6:00 PM EST) Glucometer, POC 112 65 - 199 mg/dL 10/01/2024 6:00 PM EST [facility] Comment:Supplemental ranges: <140 mg/dL before meals <180 mg/dL all other times of the day. Blood CAPILLARY BLOOD / Unknown 10/01/2024 6:00 PM EST 10/01/2024 6:00 PM EST Hayley Torres MD POINT OF CARE TEST O GILDA [facility] [place] [address] * POC, GLUCOSE (10/01/2024 3:53 PM EST) Glucometer, POC 97 65 - 199 mg/dL 10/01/2024 3:53 PM EST [facility] Comment:Supplemental ranges: <140 mg/dL before meals <180 mg/dL all other times of the day. Blood CAPILLARY BLOOD / Unknown 10/01/2024 3:53 PM EST 10/01/2024 3:53 PM EST Hayley Torres MD POINT OF CARE TEST O GILDA Performing Organization Address [facility] Co de Phone Number [facility] [place] [address] * POC, GLUCOSE (10/01/2024 2:25 PM EST) Glucometer, POC 117 65 - 199 mg/dL 10/01/2024 2:25 PM EST [facility] Comment:Supplemental ranges: <140 mg/dL before meals <180 mg/dL all other times of the day. Blood CAPILLARY BLOOD / Unknown 10/01/2024 2:25 PM EST 10/01/2024 2:25 PM EST Hayley Torres MD POINT OF CARE TEST O GILDA Performing Organization Address City/[facility] Co de Phone Number [facility] [place] [address] * POC, GLUCOSE (10/01/2024 11:43 AM EST) Glucometer, POC 174 65 - 199 mg/dL 10/01/2024 11:43 AM EST [facility] Comment:Supplemental ranges: <140 mg/dL before meals <180 mg/dL all other times of the day. Blood CAPILLARY BLOOD / Unknown 10/01/2024 11:43 AM EST 10/01/2024 11:43 AM EST Hayley Torres MD POINT OF CARE TEST O RDERAHERNANDEZ Performing Organization Address City/[facility]/ZIP Co de Phone Number [facility] [place] [address] * POC, GLUCOSE (10/01/2024 9:43 AM EST) Glucometer, POC 191 65 - 199 mg/dL 10/01/2024 9:43 AM EST [facility] Comment:Supplemental ranges: <140 mg/dL before meals <180 mg/dL all other times of the day. Blood CAPILLARY BLOOD / Unknown 10/01/2024 9:43 AM EST 10/01/2024 9:43 AM EST Hayley Torres MD POINT OF CARE TEST O GILDA Performing Organization Address [facility] Co de Phone Number [facility] [place] [address] * POC, GLUCOSE (10/01/2024 7:48 AM EST) Glucometer, POC 151 65 - 199 mg/dL 10/01/2024 7:48 AM EST [facility] Comment:Supplemental ranges: <140 mg/dL before meals <180 mg/dL all other times of the day. Blood CAPILLARY BLOOD / Unknown 10/01/2024 7:48 AM EST 10/01/2024 7:48 AM EST Hayley Torres MD POINT OF CARE TEST O GILDA Performing Organization Address City/[facility] Co de Phone Number [facility] [place] [address] * POC, GLUCOSE (10/01/2024 4:25 AM EST) Glucometer, POC 133 65 - 199 mg/dL 10/01/2024 4:26 AM EST [facility] Comment:Supplemental ranges: <140 mg/dL before meals <180 mg/dL all other times of the day. Blood CAPILLARY BLOOD / Unknown 10/01/2024 4:25 AM EST 10/01/2024 4:26 AM EST Hayley Torres MD POINT OF CARE TEST O RDERABLES [facility] [place] [address] * Phosphorus (10/01/2024 2:02 AM EST) Phosphorus 3.9 2.5 - 4.5 mg/dL 10/01/2024 7:16 AM EST [facility] Blood VENOUS BLOOD SPECIMEN / Unknown Venipuncture / Unknown 10/01/2024 2:02 AM EST 10/01/2024 2:10 AM EST Hayley Torres MD CHEMISTRY ORDERABLES Performing Organization Address City/[facility] Co de Phone Number [facility] [place] [address] * (ABNORMAL) Scan, Peripheral Blood (10/01/2024 2:02 AM EST) RBC Morphology Abnormal 10/01/2024 2:55 AM EST [facility] Platelet Estimate Increased(A) Normal 10/01 2:55 AM EST [facility] Polychromasia Present 10/01/2024 2:55 AM EST [facility] Platelet Clumps Present(A) (none) 2:55 AM EST [facility] Blood VENOUS BLOOD SPECIMEN / Unknown Venipuncture / Unknown 10/01/2024 2:02 AM EST 10/01/2024 2:10 AM EST Hayley Torres MD HEMATOLOGY ORDERABLE S Performing Organization Address City/[facility]/ZIP Co de Phone Number [facility] [place] [address] * Magnesium (10/01/2024 2:02 AM EST) Magnesium 0.79 0.69 - 1.07 mMol/L 10/01/2024 2:41 AM EST [facility] Blood VENOUS BLOOD SPECIMEN / Unknown Venipuncture / Unknown 10/01/2024 2:02 AM EST 10/01/2024 2:10 AM EST Hayley Torres MD CHEMISTRY ORDERABLES [facility] [place] [address] * (ABNORMAL) Basic Metabolic Panel (10/01/2024 2:02 AM EST) Glucose 122 65 - 199 mg/dL 10/01/2024 2:41 AM [facility] Comment:Glucose Concentratio n >=200 mg/dL plus symptoms is consistent with Diabetes Mellitus. Blood Urea Nitrogen 10 10 - 20 mg/dL 10/01/2024 2:41 AM [facility] Creatinine 0.47(L) 0.80 - 1.50 mg/dL 10/01/2024 2:41 AM [facility] Sodium 138 135 - 145 mMol/L 10/01/2024 2:41 AM [facility] Potassium 3.9 3.5 - 5.0 mMol/L 10/01/2024 2:41 AM [facility] Chloride 105 98 - 107 mMol/L 10/01/2024 2:41 AM [facility] Carbon Dioxide 24 22 - 31 mMol/L 10/01/2024 2:41 AM [facility] Anion Gap 9 5 - 15 mMol/L 10/01/2024 2:41 AM [facility] Calcium 8.1(L) 8.5 - 10.5 mg/dL 10/01/2024 2:41 AM [facility] Est Glomerular Filtration Rate - Male 127 mL/min/1. 73 m?? 10/01/2024 2:41 AM [facility] Comment: This patient's estimated GFR [...] AM EST Hayley Torres MD CHEMISTRY ORDERABLES [facility] [place] [address] * (ABNORMAL) CBC (with Diff) (10/01/2024 2:02 AM EST) White Blood Cell 10.15(H) 4.00 - 9.50 x10(3)/mc L 10/01/2024 2:55 AM EST [facility] Red Blood Cell 3.14(L) 4.58 - 5.54 x10(6)/mc L 10/01/2024 2:55 AM [facility] Hemoglobin 9.1(L) 13.7 - 16.5 g/dL 10/01/2024 2:55 AM [facility] Hematocrit 26.9(L) 40.5 - 48.5 % 10/01/2024 2:55 AM EST [facility] Mean Cell Volume 85.7 82.9 - 93.1 fL 10/01/2024 2:55 AM [facility] Mean Cell Hemoglobin 29.0 27.5 - 32.1 pg 10/01/2024 2:55 AM [facility] Mean Cell Hemoglobin Concentration 33.8 32.0 - 35.7 g/dL 10/01/2024 2:55 AM [facility] Platelet 444(H) 145 - 357 x10(3)/mc L 10/01/2024 2:55 AM [facility] Mean Platelet Volume 8.9 7.6 - 12.9 fL 10/01/2024 2:55 AM [facility] RDW Standard Deviation 41.2 36.0 - 45.0 fL 10/01/2024 2:55 AM [facility] RDW coefficient of variation 13.2 11.4 - 13.8 % 10/01/2024 2:55 AM [facility] NRBC% auto 0.0 % 10/01/2024 2:55 AM [facility] NRBC Absolute <0.01 <0.01 x10(3)/mc L 10/01/2024 2:55 AM [facility] Neutrophil % 59.5 % 10/01/2024 2:55 AM [facility] Comment:This is an appended report. These results have been appended to a previously preliminary verified report. Neutrophil Absolute (ANC) - Automated 6.05 1.70 - 6.10 x10(3)/mc L 10/01/2024 2:55 AM [facility] Comment:This is an appended report. These results have been appended to a previously preliminary verified report. Lymph % 22.3 % 10/01/2024 2:55 AM [facility] Comment:This is an appended report. These results have been appended to a previously preliminary verified report. Lymph Absolute 2.26 0.90 - 3.20 x10(3)/mc L 10/01/2024 2:55 AM [facility] Comment:This is an appended report. These results have been appended to a previously preliminary verified report. Monocyte % 7.4 % 10/01/2024 2:55 AM [facility] Comment:This is an appended report. These results have been appended to a previously preliminary verified report. Monocyte Absolute 0.75 0.30 - 0.90 x10(3)/mc L 10/01/2024 2:55 AM EST [facility] Comment:This is an appended report. These results have been appended to a previously preliminary verified report. Eos % 1.8 % 10/01/2024 2:55 AM EST [facility] Comment:This is an appended report. These results have been appended to a previously preliminary verified report. Eos Absolute 0.18 0.00 - 0.40 x10(3)/mc L 10/01/2024 2:55 AM EST [facility] Comment:This is an appended report. These results have been appended to a previously preliminary verified report. Basophil % 0.6 % 10/01/2024 2:55 AM EST [facility] Comment:This is an appended report. These results have been appended to a previously preliminary verified report. Baso Absolute 0.06 0.00 - 0.10 x10(3)/mc L 10/01/2024 2:55 AM EST [facility] Comment:This is an appended report. These results have been appended to a previously preliminary verified report. Immature Gran % 8.4 % 2:55 AM EST [facility] Comment:This is an appended report. These results have been appended to a previously preliminary verified report. Immature Gran Absolute 0.85(H) 0.00 - 0.04 x10(3)/mc L 10/01/2024 2:55 AM EST [facility] Comment:This is an appended report. These results have been appended to a previously preliminary verified report. Blood VENOUS BLOOD SPECIMEN / Unknown Venipuncture / Unknown 10/01/2024 2:02 AM EST 10/01/2024 2:10 AM EST Hayley Torres MD HEMATOLOGY ORDERABLE S [facility] [place] [address] * POC, GLUCOSE (10/01/2024 12:32 AM EST) [facility] Signature Glucometer, POC 179 65 - 199 mg/dL 10/01/2024 12:32 AM EST [facility] Comment:Supplemental ranges: <140 mg/dL before meals <180 mg/dL all other times of the day. Blood CAPILLARY BLOOD / Unknown 10/01/2024 12:32 AM EST 10/01/2024 12:32 AM EST Hayley Torres MD POINT OF CARE TEST O GILDA Performing Organization Address City/[facility]/ZIP Co de Phone Number [facility] [place] [address] * POC, GLUCOSE (09/30/2024 7:37 PM EST) Glucometer, POC 140 65 - 199 mg/dL 09/30/2024 7:38 PM EST [facility] Comment:Supplemental ranges: <140 mg/dL before meals <180 mg/dL all other times of the day. Blood CAPILLARY BLOOD / Unknown 09/30/2024 7:37 PM EST 09/30/2024 7:38 PM EST Hayley Torres MD POINT OF CARE TEST O GILDA Performing Organization Address [facility] Co de Phone Number [facility] [place] [address] * POC, GLUCOSE (09/30/2024 4:29 PM EST) Glucometer, POC 126 65 - 199 mg/dL 09/30/2024 4:30 PM EST [facility] Comment:Supplemental ranges: <140 mg/dL before meals <180 mg/dL all other times of the day. Blood CAPILLARY BLOOD / Unknown 09/30/2024 4:29 PM EST 09/30/2024 4:30 PM EST Hayley Torres MD POINT OF CARE TEST O GILDA Performing Organization Address City/[facility]/ZIP Co de Phone Number [facility] [place] [address] * POC, GLUCOSE (09/30/2024 12:16 PM EST) Glucometer, POC 107 65 - 199 mg/dL 09/30/2024 12:16 PM EST [facility] Comment:Supplemental ranges: <140 mg/dL before meals <180 mg/dL all other times of the day. Blood CAPILLARY BLOOD / Unknown 09/30/2024 12:16 PM EST 09/30/2024 12:16 PM EST Hayley Torres MD POINT OF CARE TEST O RDERABLES [facility] [place] [address] * POC, GLUCOSE (09/30/2024 7:58 AM EST) Glucometer, POC 92 65 - 199 mg/dL 09/30/2024 7:58 AM EST [facility] Comment:Supplemental ranges: <140 mg/dL before meals <180 mg/dL all other times of the day. Blood CAPILLARY BLOOD / Unknown 09/30/2024 7:58 AM EST 09/30/2024 7:58 AM EST Hayley Torres MD POINT OF CARE TEST O RDERABLES [facility] [place] [address] * Potassium (09/30/2024 6:27 AM EST) Potassium 3.9 3.5 - 5.0 mMol/L 09/30/2024 7:10 AM EST [facility] Blood VENOUS BLOOD SPECIMEN / Unknown Venipuncture / Unknown 09/30/2024 6:27 AM EST 09/30/2024 6:35 AM EST Halyey Torres MD CHEMISTRY ORDERABLES [facility] [place] [address] * Vancomycin, trough (09/30/2024 6:27 AM EST) Pathologist [facility] Vancomycin, Trough 14.1 10.0 - 20.0 mg/L 09/30/2024 7:10 AM EST [facility] Comment: Varies according to infection source. Blood VENOUS BLOOD SPECIMEN / Unknown Venipuncture / Unknown 09/30/2024 6:27 AM EST 09/30/2024 6:35 AM EST Hayley Torres MD CHEMISTRY ORDERABLES [facility] [place] [address] * POC, GLUCOSE (09/30/2024 3:51 AM EST) [facility] Glucometer, POC 134 65 - 199 mg/dL 09/30/2024 3:51 AM EST [facility] Comment:Supplemental ranges: <140 mg/dL before meals <180 mg/dL all other times of the day. Blood CAPILLARY BLOOD / Unknown 09/30/2024 3:51 AM EST 09/30/2024 3:51 AM EST Hayley Torres MD POINT OF CARE TEST O RDERABLES Performing Organization Address City/[facility]/ZIP Co de Phone Number [facility] [place] [address] * Magnesium (09/29/2024 11:52 PM EST) [facility] Magnesium 0.85 0.69 - 1.07 mMol/L 09/30/2024 12:25 AM EST [facility] Blood VENOUS BLOOD SPECIMEN / Unknown Venipuncture / Unknown 09/29/2024 11:52 PM EST 09/29/2024 11:58 PM EST Hayley Torres MD CHEMISTRY ORDERABLES [facility] [place] [address] * (ABNORMAL) Basic Metabolic Panel (09/29/2024 11:52 PM EST) Glucose 133 65 - 199 mg/dL 09/30/2024 12:51 AM [facility] Comment:Glucose Concentratio n >=200 mg/dL plus symptoms is consistent with Diabetes Mellitus. Blood Urea Nitrogen 9(L) 10 - 20 mg/dL 09/30/2024 12:51 AM [facility] Creatinine 0.48(L) 0.80 - 1.50 mg/dL 09/30/2024 12:51 AM [facility] Sodium 138 135 - 145 mMol/L 09/30/2024 12:51 AM [facility] Potassium 3.4(L) 3.5 - 5.0 mMol/L 09/30/2024 12:51 AM [facility] Chloride 103 98 - 107 mMol/L 09/30/2024 12:51 AM [facility] [facility] Carbon Dioxide 24 22 - 31 mMol/L 09/30/2024 12:51 AM [facility] Anion Gap 11 5 - 15 mMol/L 09/30/2024 12:51 AM [facility] Calcium 8.1(L) 8.5 - 10.5 mg/dL 09/30/2024 12:51 AM [facility] Est Glomerular Filtration Rate - Male 126 mL/min/1. 73 m?? 09/30/2024 12:51 AM [facility] Comment: This patient's estimated GFR [...] PM EST Hayley Torres MD CHEMISTRY ORDERABLES [facility] [place] [address] * (ABNORMAL) CBC (with Diff) (09/29/2024 11:52 PM EST) White Blood Cell 9.54(H) 4.00 - 9.50 x10(3)/mc L 09/30/2024 12:02 AM [facility] Red Blood Cell 3.04(L) 4.58 - 5.54 x10(6)/mc L 09/30/2024 12:02 AM [facility] Hemoglobin 8.7(L) 13.7 - 16.5 g/dL 09/30/2024 12:02 AM [facility] Hematocrit 25.8(L) 40.5 - 48.5 % 09/30/2024 12:02 AM [facility] Mean Cell Volume 84.9 82.9 - 93.1 fL 09/30/2024 12:02 AM [facility] Mean Cell Hemoglobin 28.6 27.5 - 32.1 pg 09/30/2024 12:02 AM [facility] Mean Cell Hemoglobin Concentration 33.7 32.0 - 35.7 g/dL 09/30/2024 12:02 AM [facility] Platelet 411(H) 145 - 357 x10(3)/mc L 09/30/2024 12:02 AM [facility] Mean Platelet Volume 8.8 7.6 - 12.9 fL 09/30/2024 12:02 AM [facility] RDW Standard Deviation 41.4 36.0 - 45.0 fL 09/30/2024 12:02 AM [facility] RDW coefficient of variation 13.4 11.4 - 13.8 % 09/30/2024 12:02 AM [facility] NRBC% auto 0.0 % 09/30/2024 12:02 AM [facility] NRBC Absolute <0.01 <0.01 x10(3)/mc L 09/30/2024 12:02 AM [facility] Neutrophil % 64.5 % 09/30/2024 12:02 AM [facility] Neutrophil Absolute (ANC) - Automated 6.16(H) 1.70 - 6.10 x10(3)/mc L 09/30/2024 12:02 AM [facility] Lymph % 23.1 % 09/30/2024 12:02 AM [facility] Lymph Absolute 2.20 0.90 - 3.20 x10(3)/mc L 09/30/2024 12:02 AM [facility] Monocyte % 8.0 % 09/30/2024 12:02 AM [facility] Monocyte Absolute 0.76 0.30 - 0.90 x10(3)/mc L 09/30/2024 12:02 AM [facility] Eos % 1.5 % 09/30/2024 12:02 AM [facility] Eos Absolute 0.14 0.00 - 0.40 x10(3)/mc L 09/30/2024 12:02 AM [facility] Basophil % 0.3 % 09/30/2024 12:02 AM [facility] Baso Absolute <0.04 0.00 - 0.10 x10(3)/mc L 09/30/2024 12:02 AM [facility] Immature Gran % 2.6 % 12:02 AM [facility] Immature Gran Absolute 0.25(H) 0.00 - 0.04 x10(3)/mc L 09/30/2024 12:02 AM [facility] Blood VENOUS BLOOD SPECIMEN / Unknown Venipuncture / Unknown 09/29/2024 11:52 PM EST 09/29/2024 11:58 PM EST Hayley Torres MD HEMATOLOGY ORDERABLE S Performing Organization Address [facility]/ZIP Co de Phone Number [facility] [place] [address] * POC, GLUCOSE (09/29/2024 11:51 PM EST) Glucometer, POC 134 65 - 199 mg/dL 09/29/2024 11:51 PM EST [facility] Comment:Supplemental ranges: <140 mg/dL before meals <180 mg/dL all other times of the day. Blood CAPILLARY BLOOD / Unknown 09/29/2024 11:51 PM EST 09/29/2024 11:51 PM EST Hayley Torres MD POINT OF CARE TEST O RDERABLES Performing Organization Address [facility] Co de Phone Number [facility] [place] [address] * Blood culture (09/29/2024 9:24 PM EST) Blood Culture No growth at 120 hours 10/04/2024 11:01 PM EST [facility] Blood VENOUS BLOOD SPECIMEN / Unknown Venipuncture / Unknown 09/29/2024 9:24 PM EST 09/29/2024 9:34 PM EST Hayley Torres MD MICROBIOLOGY - BLOOD ORDERABLES Performing Organization Address City/[facility]/ZIP Co de Phone Number [facility] [place] [address] * Blood culture (09/29/2024 9:24 PM EST) Blood Culture No growth at 120 hours 10/04/2024 11:01 PM EST [facility] Blood VENOUS BLOOD SPECIMEN / Unknown Venipuncture / Unknown 09/29/2024 9:24 PM EST 09/29/2024 9:34 PM EST Marko Dickson MD MICROBIOLOGY - BLOOD ORDERABLES Performing Organization Address City/[facility]/ZIP Co de Phone Number [facility] [place] [address] * (ABNORMAL) POC, GLUCOSE (09/29/2024 7:35 PM EST) Glucometer, POC 202(H) 65 - 199 mg/dL 09/29/2024 7:36 PM EST [facility] Comment:Supplemental ranges: <140 mg/dL before meals <180 mg/dL all other times of the day. Blood CAPILLARY BLOOD / Unknown 09/29/2024 7:35 PM EST 09/29/2024 7:36 PM EST Hayley Torres MD POINT OF CARE TEST O RDERABLES Performing Organization Address [facility]/ZIP Co de Phone Number [facility] [place] [address] * POC, GLUCOSE (09/29/2024 6:48 PM EST) Glucometer, POC 161 65 - 199 mg/dL 09/29/2024 6:48 PM EST [facility] Comment:Supplemental ranges: <140 mg/dL before meals <180 mg/dL all other times of the day. Blood CAPILLARY BLOOD / Unknown 09/29/2024 6:48 PM EST 09/29/2024 6:49 PM EST Hayley Torres MD POINT OF CARE TEST O GILDA [facility] [place] [address] * POC, GLUCOSE (09/29/2024 4:06 PM EST) Glucometer, POC 122 65 - 199 mg/dL 09/29/2024 4:06 PM EST [facility] Comment:Supplemental ranges: <140 mg/dL before meals <180 mg/dL all other times of the day. Blood CAPILLARY BLOOD / Unknown 09/29/2024 4:06 PM EST 09/29/2024 4:06 PM EST Hayley Torres MD POINT OF CARE TEST O GILDA Performing Organization Address [facility] Co de Phone Number [facility] [place] [address] * POC, GLUCOSE (09/29/2024 11:49 AM EST) Glucometer, POC 135 65 - 199 mg/dL 09/29/2024 11:49 AM EST [facility] Comment:Supplemental ranges: <140 mg/dL before meals <180 mg/dL all other times of the day. Blood CAPILLARY BLOOD / Unknown 09/29/2024 11:49 AM EST 09/29/2024 11:50 AM EST Hayley Torres MD POINT OF CARE TEST O GILDA Performing Organization Address [facility] de Phone Number [facility] [place] [address] * (ABNORMAL) POC, GLUCOSE (09/29/2024 7:53 AM EST) Glucometer, POC 202(H) 65 - 199 mg/dL 09/29/2024 7:53 AM EST [facility] Comment:Supplemental ranges: <140 mg/dL before meals <180 mg/dL all other times of the day. Blood CAPILLARY BLOOD / Unknown 09/29/2024 7:53 AM EST 09/29/2024 7:53 AM EST Hayley Torres MD POINT OF CARE TEST O GILDA Performing Organization Address [facility] Co de Phone Number [facility] [place] [address] * POC, GLUCOSE (09/29/2024 3:45 AM EST) Glucometer, POC 184 65 - 199 mg/dL 09/29/2024 3:46 AM EST [facility] Comment:Supplemental ranges: <140 mg/dL before meals <180 mg/dL all other times of the day. Blood CAPILLARY BLOOD / Unknown 09/29/2024 3:45 AM EST 09/29/2024 3:46 AM EST Hayley Torres MD POINT OF CARE TEST O RDERABLES Performing Organization Address [facility] Co de Phone Number [facility] [place] [address] * (ABNORMAL) Hemoglobin A1c (09/28/2024 11:51 PM EST) Hemoglobin A1c 9.7(H) 4.3 - 5.6 % 09/29/2024 9:54 AM EST [facility] Comment: Per ADA guidelines, [...] red blood cell turnover may not be medical customer service representative of glycemic control. Reference Interval: 4.3 - 5.6% 5.7 - 6.4%: Consistent with prediabetes >=6.5%: Consistent with diagnosis of diabetes mellitus Estimated Average Glucose 232 mg/dL 09/29/2024 9:54 AM EST [facility] Blood VENOUS BLOOD SPECIMEN / Unknown Venipuncture / Unknown 09/28/2024 11:51 PM EST 09/28/2024 11:56 PM EST Hayley Torres MD CHEMISTRY ORDERABLES Performing Organization Address City/[facility]/ZIP Co de Phone Number [facility] [place] [address] * Magnesium (09/28/2024 11:51 PM EST) Magnesium 0.72 0.69 - 1.07 mMol/L 09/29/2024 12:27 AM [facility] Blood VENOUS BLOOD SPECIMEN / Unknown Venipuncture / Unknown 09/28/2024 11:51 PM EST 09/28/2024 11:57 PM EST Hayley Torres MD CHEMISTRY ORDERABLES [facility] [place] [address] * (ABNORMAL) Basic Metabolic Panel (09/28/2024 11:51 PM EST) Glucose 204(H) 65 - 199 mg/dL 09/29/2024 12:40 AM [facility] Comment:Glucose Concentratio n >=200 mg/dL plus symptoms is consistent with Diabetes Mellitus. Blood Urea Nitrogen 6(L) 10 - 20 mg/dL 09/29/2024 12:40 AM [facility] Creatinine 0.52(L) 0.80 - 1.50 mg/dL 09/29/2024 12:40 AM [facility] Sodium 137 135 - 145 mMol/L 09/29/2024 12:40 AM [facility] Potassium 3.2(L) 3.5 - 5.0 mMol/L 09/29/2024 12:40 AM [facility] Chloride 105 98 - 107 mMol/L 09/29/2024 12:40 AM [facility] Carbon Dioxide 21(L) 22 - 31 mMol/L 09/29/2024 12:40 AM [facility] Anion Gap 11 5 - 15 mMol/L 09/29/2024 12:40 AM [facility] Calcium 6.7(LLL) 8.5 - 10.5 mg/dL 09/29/2024 12:40 AM [facility] Est Glomerular Filtration Rate - Male 123 mL/min/1. 73 m?? 09/29/2024 12:40 AM [facility] Comment: This patient's estimated GFR [...] Torres MD CHEMISTRY ORDERABLES Performing Organization Address City/State/[facility] Co de Phone Number [facility] [place] [address] * (ABNORMAL) CBC (with Diff) (09/28/2024 11:51 PM EST) White Blood Cell 12.76(H) 4.00 - 9.50 x10(3)/mc L 09/29/2024 12:00 AM [facility] Red Blood Cell 2.90(L) 4.58 - 5.54 x10(6)/mc L 09/29/2024 12:00 AM [facility] Hemoglobin 8.5(L) 13.7 - 16.5 g/dL 09/29/2024 12:00 AM [facility] Hematocrit 24.7(L) 40.5 - 48.5 % 09/29/2024 12:00 AM [facility] Mean Cell Volume 85.2 82.9 - 93.1 fL 09/29/2024 12:00 AM [facility] Mean Cell Hemoglobin 29.3 27.5 - 32.1 pg 09/29/2024 12:00 AM [facility] Mean Cell Hemoglobin Concentration 34.4 32.0 - 35.7 g/dL 09/29/2024 12:00 AM [facility] Platelet 331 145 - 357 x10(3)/mc L 09/29/2024 12:00 AM [facility] Mean Platelet Volume 9.2 7.6 - 12.9 fL 09/29/2024 12:00 AM [facility] RDW Standard Deviation 40.4 36.0 - 45.0 fL 09/29/2024 12:00 AM [facility] RDW coefficient of variation 13.1 11.4 - 13.8 % 09/29/2024 12:00 AM [facility] NRBC% auto 0.0 % 09/29/2024 12:00 AM [facility] NRBC Absolute <0.01 <0.01 x10(3)/mc L 09/29/2024 12:00 AM [facility] Neutrophil % 86.7 % 09/29/2024 12:00 AM [facility] Neutrophil Absolute (ANC) - Automated 11.06(H) 1.70 - 6.10 x10(3)/mc L 09/29/2024 12:00 AM [facility] Lymph % 7.7 % 09/29/2024 12:00 AM [facility] Lymph Absolute 0.98 0.90 - 3.20 x10(3)/mc L 09/29/2024 12:00 AM [facility] Monocyte % 4.0 % 09/29/2024 12:00 AM [facility] Monocyte Absolute 0.51 0.30 - 0.90 x10(3)/mc L 09/29/2024 12:00 AM [facility] Eos % 0.0 % 09/29/2024 12:00 AM [facility] Eos Absolute <0.04 0.00 - 0.40 x10(3)/mc L 09/29/2024 12:00 AM [facility] Basophil % 0.2 % 09/29/2024 12:00 AM [facility] Baso Absolute <0.04 0.00 - 0.10 x10(3)/mc L 09/29/2024 12:00 AM EST [facility] Immature Gran % 1.4 % 12:00 AM EST [facility] Immature Gran Absolute 0.18(H) 0.00 - 0.04 x10(3)/mc L 09/29/2024 12:00 AM EST [facility] Blood VENOUS BLOOD SPECIMEN / Unknown Venipuncture / Unknown 09/28/2024 11:51 PM EST 09/28/2024 11:56 PM EST Hayley Torres MD HEMATOLOGY ORDERABLE S [facility] [place] [address] * (ABNORMAL) POC, GLUCOSE (09/28/2024 11:45 PM EST) Glucometer, POC 238(H) 65 - 199 mg/dL 09/28/2024 11:45 PM EST [facility] Comment:Supplemental ranges: <140 mg/dL before meals <180 mg/dL all other times of the day. Blood CAPILLARY BLOOD / Unknown 09/28/2024 11:45 PM EST 09/28/2024 11:45 PM EST Hayley Torres MD POINT OF CARE TEST O RDERABLES [facility] [place] [address] * (ABNORMAL) POC, GLUCOSE (09/28/2024 10:00 PM EST) Glucometer, POC 287(H) 65 - 199 mg/dL 09/28/2024 10:00 PM EST [facility] Comment:Supplemental ranges: <140 mg/dL before meals <180 mg/dL all other times of the day. Blood CAPILLARY BLOOD / Unknown 09/28/2024 10:00 PM EST 09/28/2024 10:00 PM EST Hayley Torres MD POINT OF CARE TEST O RDERABLES Performing Organization Address [facility]/ZIP Co de Phone Number [facility] [place] [address] * (ABNORMAL) POC, GLUCOSE (09/28/2024 7:51 PM EST) Glucometer, POC 243(H) 65 - 199 mg/dL 09/28/2024 7:52 PM EST [facility] Comment:Supplemental ranges: <140 mg/dL before meals <180 mg/dL all other times of the day. Blood CAPILLARY BLOOD / Unknown 09/28/2024 7:51 PM EST 09/28/2024 7:52 PM EST Hayley Torres MD POINT OF CARE TEST O RDERAHERNANDEZ Performing Organization Address [facility] Co de Phone Number [facility] [place] [address] * Blood culture (09/28/2024 5:49 PM EST) Blood Culture No growth at 120 hours 10/03/2024 7:01 PM EST [facility] Blood VENOUS BLOOD SPECIMEN / Unknown Venipuncture / Unknown 09/28/2024 5:49 PM EST 09/28/2024 5:53 PM EST Marko Dickson MD MICROBIOLOGY - BLOOD ORDERABLES Performing Organization Address City/[facility]/ZIP Co de Phone Number [facility] [place] [address] * (ABNORMAL) POC, GLUCOSE (09/28/2024 4:42 PM EST) Glucometer, POC 203(H) 65 - 199 mg/dL 09/28/2024 4:42 PM EST [facility] Comment:Supplemental ranges: <140 mg/dL before meals <180 mg/dL all other times of the day. Blood CAPILLARY BLOOD / Unknown 09/28/2024 4:42 PM EST 09/28/2024 4:42 PM EST Hayley Torres MD POINT OF CARE TEST O RDERABLES [facility] [place] [address] * (ABNORMAL) Blood Gas, Arterial POC (09/28/2024 3:16 PM EST) pH, Arterial 7.42 7.35 - 7.45 09/28/2024 3:17 PM EST [facility] PCO2, Arterial 39 35 - 45 mmHg 09/28/2024 3:17 PM [facility] PO2, Arterial 103 85 - 104 mmHg 09/28/2024 3:17 PM [facility] Bicarbonate, Arterial 24.8 20.0 - 26.0 mmol/L 09/28/2024 3:17 PM [facility] Base Excess, Arterial 0.2 -3.0 - 3.0 mmol/L 09/28/2024 3:17 PM [facility] Hemoglobin, Arterial 10.9(L) 13.7 - 16.5 g/dL 09/28/2024 3:17 PM [facility] Oxyhemoglobin, Arterial 97.1(H) 94.0 - 97.0 % 09/28/2024 3:17 PM [facility] Carboxyhemoglobin , Arterial 0.1 % 09/28/2024 3:17 PM [facility] Comment: Nonsmokers: 0.5-1.5% COHB ?? Smokers: Variable ??but usually less than 10% ?? Toxic: 20-30% COHB ?? Lethal: Greater than 60% COHB Methemoglobin, Arterial 0.2 <=1.5 % 09/28/2024 3:17 PM [facility] Sodium, Arterial 131(L) 135 - 145 mmol/L 09/28/2024 3:17 PM [facility] Potassium, Arterial 3.8 3.5 - 5.0 mmol/L 09/28/2024 3:17 PM EST [facility] Chloride, Arterial 99 98 - 107 mmol/L 09/28/2024 3:17 PM EST [facility] Lactate, Arterial 1.1 0.5 - 2.2 mmol/L 09/28/2024 3:17 PM EST [facility] IONIZED CALCIUM, ARTERIAL 1.08(L) 1.15 - 1.33 mmol/L 09/28/2024 3:17 PM EST [facility] Glucose, Arterial 163 65 - 199 mg/dL 09/28/2024 3:17 PM EST [facility] Comment:Glucose Concentratio n >=200 mg/dL plus symptoms is consistent with Diabetes Mellitus. Blood ARTERIAL BLOOD / Unknown 09/28/2024 3:16 PM EST 09/28/2024 3:17 PM EST Hayley Torres MD POINT OF CARE TEST O RDERABLES Performing Organization Address City/State/[facility] Co de Phone Number [facility] [place] [address] * Surgical Pathology (09/28/2024 2:10 PM EST) Case Report Surgical Pathology Report ? Case: [id number] ? Authorizing Provider: ??Hayley Torres MD ? Collected: ? 09/28/2024 1410 ? Ordering Location: ? Main Operating Room [facility] ?? Received: ?09/28/2024 1644 ? [facility] ? Hospital ? Pathologist: ? Aziza Packer MD ? Specimens: ?? A) - Leg, Left, Left femoral proximal graft ? B) - Leg, Left, Left distal BK pop graft ? 10/02/2024 8:17 AM [facility] Final Diagnosis A. Graft, left leg, femoral proximal, excision: - Gross surgical pathology examination. B. Graft, left leg, distal BK pop, excision: - Gross surgical pathology examination. 10/02/2024 8:17 AM [facility] Clinical Information A. Leg, Left, Left femoral proximal graft Left femoral proximal graft B. Leg, Left, Left distal BK pop graft Left distal BK pop graft 10/02/2024 8:17 AM [facility] Gross Description A. Leg, Left, [...] diagnosis only sns 10/02/2024 8:17 AM EST [facility] Result Note Routine 10/02/2024 8:17 AM EST [facility] Pocket Stitcher STRUCTURE OF LEFT LOWER LIMB / Unknown 09/28/2024 2:10 PM EST 09/28/2024 4:44 PM EST Comment:Left femoral proxima l graft Biomedical device (physical object) STRUCTURE OF LEFT LOWER LIMB / Unknown 09/28/2024 2:17 PM EST 09/28/2024 4:44 PM EST Comment:Left distal BK pop g raft Hayley Torres MD PATHOLOGY/CYTOLOGY O RDERABLES [facility] [place] [address] * Potassium (09/28/2024 10:45 AM EST) Potassium 4.6 3.5 - 5.0 mMol/L 09/28/2024 12:26 PM EST [facility] Blood VENOUS BLOOD SPECIMEN / Unknown Venipuncture / Unknown 09/28/2024 10:45 AM EST 09/28/2024 10:53 AM EST Marko Dickson MD CHEMISTRY ORDERABLES [facility] [place] [address] * POC, GLUCOSE (09/28/2024 7:57 AM EST) Glucometer, POC 192 65 - 199 mg/dL 09/28/2024 7:57 AM EST [facility] Comment:Supplemental ranges: <140 mg/dL before meals <180 mg/dL all other times of the day. Blood CAPILLARY BLOOD / Unknown 09/28/2024 7:57 AM EST 09/28/2024 7:57 AM EST Marko Dickson MD POINT OF CARE TEST O RDERAHERNANDEZ [facility] [place] [address] * ELEN, legs, multiple levels (09/28/2024 7:44 AM EST) [facility] Signature VB Text Report Department: Vascular Surgery Lab Patient: [id number] (GEOVANNA DIOXN) CPT: 49728 Referring Physician: HERMILA SNIDER ?? Phone: Indications: [...] EST Narrative 09/28/2024 9:15 AM EST [address] [place] [address] ? Echocardiogram Report Name: GEOVANNA DIXON JR ?Study Date: 09/28/2024 06:56 AMBP: 132/75 mmHg ? Patient Location: ^IC08^A : 1975 ? Height: 179 cm ? Account: [id number] Age: 49 yrs ? Weight: 108 kg Gender: Male ?BSA: 2.3 m2 Ordering Physician: Marko Dickson MD Referring Physician: PATRIC GILES Performed By: Faiza Cole Reason For Study: Vascular graft infection, initial encounter; MRSA bacteremia Interpreting Fellow: Jame Lares. Exam Location: [facility]. Interpretation Summary -Limited study performed for [...] 05/29/2024, no significant changes. Procedure Limited - 17627. Doppler - 01803. Color Doppler - 12185. Suboptimal quality. This study is limited because [...] Note David Lomeli MD - 09/28/2024 [address] [place] [address] Echocardiogram Report Name: GEOVANNA DIXON JR Study Date: 406:56 AMBP: 132/75 mmHg Patient Location:^IC08^A : 1975 Height: 179 cm Account: [id number] Age: 49 yrs Weight: 108 kg Gender: Male BSA: 2.3 m2 Ordering Physician: Marko Dickson MD Referring Physician: PATRIC GILES Performed By: Faiza Cole Reason For Study: Vascular graft infection, initial encounter; MRSAbacteremia Interpreting Fellow: Jame Lares. Exam Location: [facility]. Interpretation Summary -Limited study performed for [...] 05/29/2024, no significant changes. Procedure Limited - 01941. Doppler - 65413. Color Doppler - 65809. Suboptimalquality. This study is limited because of [...] - 20.0 mg/L 09/28/2024 7:21 AM EST [facility] Comment: Varies according to infection source. Blood VENOUS BLOOD SPECIMEN / Unknown Venipuncture / Unknown 09/28/2024 6:44 AM EST 09/28/2024 6:49 AM EST Marko Dickson MD CHEMISTRY ORDERABLES Performing Organization Address City/[facility]/ZIP Co de Phone Number [facility] [place] [address] * (ABNORMAL) Potassium (09/28/2024 4:55 AM EST) [facility] Potassium 2.9(LLL) 3.5 - 5.0 mMol/L 09/28/2024 5:31 AM EST [facility] Blood VENOUS BLOOD SPECIMEN / Unknown Venipuncture / Unknown 09/28/2024 4:55 AM EST 09/28/2024 5:01 AM EST Marko Dickson MD CHEMISTRY ORDERABLES Performing Organization Address [facility] Co de Phone Number [facility] [place] [address] * (ABNORMAL) POC, GLUCOSE (09/28/2024 3:54 AM EST) [facility] Glucometer, POC 229(H) 65 - 199 mg/dL 09/28/2024 3:54 AM EST [facility] Comment:Supplemental ranges: <140 mg/dL before meals <180 mg/dL all other times of the day. Blood CAPILLARY BLOOD / Unknown 09/28/2024 3:54 AM EST 09/28/2024 3:54 AM EST Marko Dickson MD POINT OF CARE TEST O RDERABLES Performing Organization Address City/[facility]/ZIP Co de Phone Number [facility] [place] [place] [address] * Magnesium (09/27/2024 11:58 PM EST) Magnesium 0.77 0.69 - 1.07 mMol/L 09/28/2024 12:38 AM [facility] Blood VENOUS BLOOD SPECIMEN / Unknown Venipuncture / Unknown 09/27/2024 11:58 PM EST 09/28/2024 12:10 AM EST Hayley Torres MD CHEMISTRY ORDERABLES [facility] [place] [place] [address] * (ABNORMAL) Basic Metabolic Panel (09/27/2024 11:58 PM EST) Pathologist [facility] Glucose 246(H) 65 - 199 mg/dL 09/28/2024 12:38 AM [facility] Comment:Glucose Concentratio n >=200 mg/dL plus symptoms is consistent with Diabetes Mellitus. Blood Urea Nitrogen 5(L) 10 - 20 mg/dL 09/28/2024 12:38 AM [facility] Creatinine 0.48(L) 0.80 - 1.50 mg/dL 09/28/2024 12:38 AM [facility] Sodium 131(L) 135 - 145 mMol/L 09/28/2024 12:38 AM [facility] Potassium 3.2(L) 3.5 - 5.0 mMol/L 09/28/2024 12:38 AM [facility] Chloride 95(L) 98 - 107 mMol/L 09/28/2024 12:38 AM [facility] Carbon Dioxide 23 22 - 31 mMol/L 09/28/2024 12:38 AM [facility] Anion Gap 13 5 - 15 mMol/L 09/28/2024 12:38 AM [facility] Calcium 8.1(L) 8.5 - 10.5 mg/dL 09/28/2024 12:38 AM [facility] Est Glomerular Filtration Rate - Male 126 mL/min/1. 73 m?? 09/28/2024 12:38 AM EST [facility] Comment: This patient's estimated [...] Torres MD CHEMISTRY ORDERABLES Performing Organization Address City/State/[facility] Co de Phone Number [facility] [place] [address] * (ABNORMAL) CBC (with Diff) (09/27/2024 11:58 PM EST) White Blood Cell 17.15(H) 4.00 - 9.50 x10(3)/mc L 09/28/2024 12:14 AM [facility] Red Blood Cell 3.64(L) 4.58 - 5.54 x10(6)/mc L 09/28/2024 12:14 AM [facility] Hemoglobin 10.4(L) 13.7 - 16.5 g/dL 09/28/2024 12:14 AM [facility] Hematocrit 30.5(L) 40.5 - 48.5 % 09/28/2024 12:14 AM [facility] Mean Cell Volume 83.8 82.9 - 93.1 fL 09/28/2024 12:14 AM [facility] Mean Cell Hemoglobin 28.6 27.5 - 32.1 pg 09/28/2024 12:14 AM [facility] Mean Cell Hemoglobin Concentration 34.1 32.0 - 35.7 g/dL 09/28/2024 12:14 AM [facility] Platelet 316 145 - 357 x10(3)/mc L 09/28/2024 12:14 AM [facility] Mean Platelet Volume 9.4 7.6 - 12.9 fL 09/28/2024 12:14 AM [facility] RDW Standard Deviation 39.4 36.0 - 45.0 fL 09/28/2024 12:14 AM [facility] RDW coefficient of variation 12.8 11.4 - 13.8 % 09/28/2024 12:14 AM [facility] NRBC% auto 0.0 % 09/28/2024 12:14 AM [facility] NRBC Absolute <0.01 <0.01 x10(3)/mc L 09/28/2024 12:14 AM [facility] Neutrophil % 81.2 % 09/28/2024 12:14 AM [facility] Neutrophil Absolute (ANC) - Automated 13.93(H) 1.70 - 6.10 x10(3)/mc L 09/28/2024 12:14 AM [facility] Lymph % 10.5 % 09/28/2024 12:14 AM [facility] Lymph Absolute 1.80 0.90 - 3.20 x10(3)/mc L 09/28/2024 12:14 AM [facility] Monocyte % 5.7 % 09/28/2024 12:14 AM [facility] Monocyte Absolute 0.98(H) 0.30 - 0.90 x10(3)/mc L 09/28/2024 12:14 AM [facility] Eos % 0.7 % 09/28/2024 12:14 AM [facility] Eos Absolute 0.12 0.00 - 0.40 x10(3)/mc L 09/28/2024 12:14 AM EST [facility] Basophil % 0.5 % 09/28/2024 12:14 AM [facility] Baso Absolute 0.08 0.00 - 0.10 x10(3)/mc L 09/28/2024 12:14 AM [facility] Immature Gran % 1.4 % 12:14 AM [facility] Immature Gran Absolute 0.24(H) 0.00 - 0.04 x10(3)/mc L 09/28/2024 12:14 AM [facility] Blood VENOUS BLOOD SPECIMEN / Unknown Venipuncture / Unknown 09/27/2024 11:58 PM EST 09/28/2024 12:10 AM EST Hayley Torres MD HEMATOLOGY ORDERABLE S [facility] [place] [address] * (ABNORMAL) POC, GLUCOSE (09/27/2024 11:46 PM EST) Glucometer, POC 205(H) 65 - 199 mg/dL 09/27/2024 11:46 PM [facility] Comment:Supplemental ranges: <140 mg/dL before meals <180 mg/dL all other times of the day. Blood CAPILLARY BLOOD / Unknown 09/27/2024 11:46 PM EST 09/27/2024 11:46 PM EST Marko Dickson MD POINT OF CARE TEST O RDERABLES [facility] [place] [address] * (ABNORMAL) Blood culture (09/27/2024 9:33 PM EST) Blood Culture Methicillin Resistant Staphylococcus aureus(Critical) 10/02/2024 8:04 AM [facility] Comment:Susceptibilities pre viously reported. Gram Stain Aerobic Bottle: Gram positive cocci in clusters(Critical ) 10/02/2024 8:04 AM EST [facility] Blood VENOUS BLOOD SPECIMEN / Unknown Venipuncture / Unknown 09/27/2024 9:33 PM EST 09/27/2024 9:38 PM EST Marko Dickson MD MICROBIOLOGY - BLOOD ORDERABLES Performing Organization Address City/[facility]/ZIP Co de Phone Number [facility] [place] [address] * POC, GLUCOSE (09/27/2024 7:51 PM EST) Pathologist [facility] Glucometer, POC 142 65 - 199 mg/dL 09/27/2024 7:51 PM EST [facility] Comment:Supplemental ranges: <140 mg/dL before meals <180 mg/dL all other times of the day. Blood CAPILLARY BLOOD / Unknown 09/27/2024 7:51 PM EST 09/27/2024 7:51 PM EST Marok Dickson MD POINT OF CARE TEST O RDERABLES Performing Organization Address City/[facility]/ZIP Co de Phone Number [facility] [place] [address] * (ABNORMAL) Hemogram (09/27/2024 5:55 PM EST) Pathologist [facility] White Blood Cell 19.38(H) 4.00 - 9.50 x10(3)/mc L 09/27/2024 6:16 PM EST [facility] Red Blood Cell 3.76(L) 4.58 - 5.54 x10(6)/mc L 09/27/2024 6:16 PM EST [facility] Hemoglobin 11.0(L) 13.7 - 16.5 g/dL 09/27/2024 6:16 PM EST [facility] Hematocrit 31.6(L) 40.5 - 48.5 % 09/27/2024 6:16 PM EST [facility] Mean Cell Volume 84.0 82.9 - 93.1 fL 09/27/2024 6:16 PM [facility] Mean Cell Hemoglobin 29.3 27.5 - 32.1 pg 09/27/2024 6:16 PM [facility] Mean Cell Hemoglobin Concentration 34.8 32.0 - 35.7 g/dL 09/27/2024 6:16 PM [facility] Platelet 322 145 - 357 x10(3)/mc L 09/27/2024 6:16 PM [facility] Mean Platelet Volume 9.4 7.6 - 12.9 fL 09/27/2024 6:16 PM [facility] RDW Standard Deviation 39.4 36.0 - 45.0 fL 09/27/2024 6:16 PM [facility] RDW coefficient of variation 13.0 11.4 - 13.8 % 09/27/2024 6:16 PM [facility] NRBC% auto 0.0 % 09/27/2024 6:16 PM [facility] NRBC Absolute <0.01 <0.01 x10(3)/mc L 09/27/2024 6:16 PM [facility] Blood VENOUS BLOOD SPECIMEN / Unknown Venipuncture / Unknown 09/27/2024 5:55 PM EST 09/27/2024 6:05 PM EST Marko Dickson MD HEMATOLOGY ORDERABLE S Performing Organization Address City/State/[facility] Co de Phone Number [facility] [place] [address] * POC, GLUCOSE (09/27/2024 5:48 PM EST) [facility] Signature Glucometer, POC 171 65 - 199 mg/dL 09/27/2024 5:48 PM [facility] Comment:Supplemental ranges: <140 mg/dL before meals <180 mg/dL all other times of the day. 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 Hayley Torres MD MICROBIOLOGY - GENER AL ORDERABLES Performing Organization Address City/[facility]/ZIP Co de Phone Number [facility] [place] [address] * (ABNORMAL) Tissue Culture, Aerobic Only (09/27/2024 4:54 PM EST) Tissue Culture Rare Methicillin Resistant Staphylococcus aureus(A) VITEK 2 METHOD 10/01/2024 1:18 PM EST [facility] Gram Stain Few Neutrophils seen 10/01/2024 1:18 PM EST [facility] Gram Stain No microorganisms seen 10/01/2024 1:18 PM EST [facility] Tissue STRUCTURE OF LEFT [...] Torres MD MICROBIOLOGY - GENER AL ORDERABLES [facility] [place] [address] * POC, GLUCOSE (09/27/2024 3:23 PM EST) Glucometer, POC 178 65 - 199 mg/dL 09/27/2024 3:23 PM EST [facility] Comment:Supplemental ranges: <140 mg/dL before meals <180 mg/dL all other times of the day. Blood CAPILLARY BLOOD / Unknown 09/27/2024 3:23 PM EST 09/27/2024 3:23 PM EST Marko Dickson MD POINT OF CARE TEST O GILDA Performing Organization Address City/[facility]/ZIP Co de Phone Number [facility] [place] [address] * POC, GLUCOSE (09/27/2024 11:29 AM EST) [facility] Signature Glucometer, POC 181 65 - 199 mg/dL 09/27/2024 11:29 AM EST [facility] Comment:Supplemental ranges: <140 mg/dL before meals <180 mg/dL all other times of the day. Blood CAPILLARY BLOOD / Unknown 09/27/2024 11:29 AM EST 09/27/2024 11:30 AM EST Marko Dickson MD POINT OF CARE TEST O GILDA [facility] [place] [address] * CT Lower Extremity w Contrast Left (09/27/2024 9:16 AM EST) WORKSTATION ID [id number] [facility] Anatomical Region Laterality Modality Hip, Leg, [...] who have questions please contact the health human services care specialist that requested your imaging first. [...] wedged between the vastus medialis and adductor Aquilla muscle. This tracks into the popliteal fossa [...] patients who have questions please contactthe health human services care specialist that requested your imaging first. Rose Wright ROD[facility] IMG CT ORDERABL ES * POC, GLUCOSE (09/27/2024 7:51 AM EST) [facility] Glucometer, POC 194 65 - 199 mg/dL 09/27/2024 7:51 AM EST [facility] Comment:Supplemental ranges: <140 mg/dL before meals <180 mg/dL all other times of the day. Blood CAPILLARY BLOOD / Unknown 09/27/2024 7:51 AM EST 09/27/2024 7:51 AM EST Marko Dickson MD POINT OF CARE TEST O RDERABLES [facility] [place] [address] * (ABNORMAL) MRSA PCR Screen (09/27/2024 7:51 AM EST) [facility] MRSA PCR Detected(A ) 09/27/2024 11:56 AM EST [facility] Swab BOTH ANTERIOR NARES / Unknown Non Blood Collection / Unknown 09/27/2024 7:51 AM EST 09/27/2024 8:05 AM EST Narrative [facility] - 09/27/2024 11:56 AM EST This test was performed using the Xpert MRSA NxG test kit and is run on the [employer] GeneXpert Dx System. This test is cleared by the U.S. Food and Drug Administration for clinical use and its performance characteristics have been verified by the [facility] at [facility]. Marko Dickson MD MOLECULAR ORDERABLES [facility] [address] * Potassium (09/27/2024 7:51 AM EST) Potassium 3.5 3.5 - 5.0 mMol/L 09/27/2024 9:09 AM EST [facility] Blood VENOUS BLOOD SPECIMEN / Unknown Venipuncture / Unknown 09/27/2024 7:51 AM EST 09/27/2024 8:05 AM EST Marko Dickson MD CHEMISTRY ORDERABLES Performing Organization Address [facility] Co de Phone Number [facility] [place] [address] * (ABNORMAL) Potassium (09/27/2024 5:05 AM EST) Potassium 3.4(L) 3.5 - 5.0 mMol/L 09/27/2024 5:32 AM EST [facility] Blood VENOUS BLOOD SPECIMEN / Unknown Venipuncture / Unknown 09/27/2024 5:05 AM EST 09/27/2024 5:09 AM EST Marko Dickson MD CHEMISTRY ORDERABLES Performing Organization Address City/[facility]/ZIP Co de Phone Number [facility] [place] [address] * POC, GLUCOSE (09/27/2024 3:52 AM EST) Glucometer, POC 199 65 - 199 mg/dL 09/27/2024 3:52 AM EST [facility] Comment:Supplemental ranges: <140 mg/dL before meals <180 mg/dL all other times of the day. Blood CAPILLARY BLOOD / Unknown 09/27/2024 3:52 AM EST 09/27/2024 3:52 AM EST Marko Dickson MD POINT OF CARE TEST O GILDA Performing Organization Address City/[facility]/ZIP Co de Phone Number [facility] [place] [address] * (ABNORMAL) POC, GLUCOSE (09/27/2024 1:59 AM EST) Glucometer, POC 219(H) 65 - 199 mg/dL 09/27/2024 2:00 AM EST [facility] Comment:Supplemental ranges: <140 mg/dL before meals <180 mg/dL all other times of the day. Blood CAPILLARY BLOOD / Unknown 09/27/2024 1:59 AM EST 09/27/2024 2:00 AM EST Marko Dickson MD POINT OF CARE TEST Stephanie VO Performing Organization Address [facility]/ZIP Co de Phone Number [facility] [place] [address] * (ABNORMAL) Magnesium (09/27/2024 12:01 AM EST) Magnesium 0.68(L) 0.69 - 1.07 mMol/L 09/27/2024 12:35 AM EST [facility] Blood VENOUS BLOOD SPECIMEN / Unknown Venipuncture / Unknown 09/27/2024 12:01 AM EST 09/27/2024 12:05 AM EST Hayley Torres MD CHEMISTRY ORDERABLES Performing Organization Address City/[facility]/ZIP Co de Phone Number [facility] [place] [address] * (ABNORMAL) Basic Metabolic Panel (09/27/2024 12:01 AM EST) Glucose 261(H) 65 - 199 mg/dL 09/27/2024 12:35 AM EST [facility] Comment:Glucose Concentratio n >=200 mg/dL plus symptoms is consistent with Diabetes Mellitus. Blood Urea Nitrogen 7(L) 10 - 20 mg/dL 09/27/2024 12:35 AM [facility] Creatinine 0.45(L) 0.80 - 1.50 mg/dL 09/27/2024 12:35 AM [facility] Sodium 128(L) 135 - 145 mMol/L 09/27/2024 12:35 AM [facility] Potassium 3.3(L) 3.5 - 5.0 mMol/L 09/27/2024 12:35 AM [facility] Chloride 92(L) 98 - 107 mMol/L 09/27/2024 12:35 AM [facility] Carbon Dioxide 23 22 - 31 mMol/L 09/27/2024 12:35 AM [facility] Anion Gap 13 5 - 15 mMol/L 09/27/2024 12:35 AM [facility] Calcium 8.5 8.5 - 10.5 mg/dL 09/27/2024 12:35 AM [facility] Est Glomerular Filtration Rate - Male 128 mL/min/1. 73 m?? 09/27/2024 12:35 AM [facility] Comment: This patient's estimated GFR [...] AM EST Hayley Torres MD CHEMISTRY ORDERABLES [facility] [place] [address] * (ABNORMAL) CBC (with Diff) (09/27/2024 12:01 AM EST) White Blood Cell 23.20(H) 4.00 - 9.50 x10(3)/mc L 09/27/2024 12:10 AM [facility] Red Blood Cell 4.07(L) 4.58 - 5.54 x10(6)/mc L 09/27/2024 12:10 AM [facility] Hemoglobin 11.7(L) 13.7 - 16.5 g/dL 09/27/2024 12:10 AM [facility] Hematocrit 33.6(L) 40.5 - 48.5 % 09/27/2024 12:10 AM [facility] Mean Cell Volume 82.6(L) 82.9 - 93.1 fL 09/27/2024 12:10 AM [facility] Mean Cell Hemoglobin 28.7 27.5 - 32.1 pg 09/27/2024 12:10 AM [facility] Mean Cell Hemoglobin Concentration 34.8 32.0 - 35.7 g/dL 09/27/2024 12:10 AM [facility] Platelet 296 145 - 357 x10(3)/mc L 09/27/2024 12:10 AM [facility] Mean Platelet Volume 9.5 7.6 - 12.9 fL 09/27/2024 12:10 AM [facility] RDW Standard Deviation 37.9 36.0 - 45.0 fL 09/27/2024 12:10 AM [facility] RDW coefficient of variation 12.6 11.4 - 13.8 % 09/27/2024 12:10 AM [facility] NRBC% auto 0.0 % 09/27/2024 12:10 AM [facility] NRBC Absolute <0.01 <0.01 x10(3)/mc L 09/27/2024 12:10 AM [facility] Neutrophil % 83.7 % 09/27/2024 12:10 AM [facility] Neutrophil Absolute (ANC) - Automated 19.43(H) 1.70 - 6.10 x10(3)/mc L 09/27/2024 12:10 AM [facility] Lymph % 6.7 % 09/27/2024 12:10 AM [facility] Lymph Absolute 1.56 0.90 - 3.20 x10(3)/mc L 09/27/2024 12:10 AM [facility] Monocyte % 7.8 % 09/27/2024 12:10 AM [facility] Monocyte Absolute 1.80(H) 0.30 - 0.90 x10(3)/mc L 09/27/2024 12:10 AM [facility] Eos % 0.2 % 09/27/2024 12:10 AM [facility] Eos Absolute 0.04 0.00 - 0.40 x10(3)/mc L 09/27/2024 12:10 AM [facility] Basophil % 0.5 % 09/27/2024 12:10 AM [facility] Baso Absolute 0.12(H) 0.00 - 0.10 x10(3)/mc L 09/27/2024 12:10 AM [facility] Immature Gran % 1.1 % 12:10 AM [facility] Immature Gran Absolute 0.25(H) 0.00 - 0.04 x10(3)/mc L 09/27/2024 12:10 AM [facility] Blood VENOUS BLOOD SPECIMEN / Unknown Venipuncture / Unknown 09/27/2024 12:01 AM EST 09/27/2024 12:05 AM EST Hayley Torres MD HEMATOLOGY ORDERABLE S [facility] [place] [address] * (ABNORMAL) POC, GLUCOSE (09/26/2024 11:59 PM EST) Glucometer, POC 251(H) 65 - 199 mg/dL 09/26/2024 11:59 PM EST [facility] Comment:Supplemental ranges: <140 mg/dL before meals <180 mg/dL all other times of the day. Blood CAPILLARY BLOOD / Unknown 09/26/2024 11:59 PM EST 09/26/2024 11:59 PM EST Marko Dickson MD POINT OF CARE TEST O GILDA Performing Organization Address City/[facility]/ZIP Co de Phone Number [facility] [place] [address] * (ABNORMAL) POC, GLUCOSE (09/26/2024 7:34 PM EST) Glucometer, POC 204(H) 65 - 199 mg/dL 09/26/2024 7:34 PM EST [facility] Comment:Supplemental ranges: <140 mg/dL before meals <180 mg/dL all other times of the day. Blood CAPILLARY BLOOD / Unknown 09/26/2024 7:34 PM EST 09/26/2024 7:35 PM EST Marko Dickson MD POINT OF CARE TEST Stephanie VO [facility] [place] [address] * (ABNORMAL) Blood culture (09/26/2024 6:45 PM EST) Blood Culture Methicillin Resistant Staphylococcus aureus(Critical) 10/01/2024 6:58 AM EST [facility] Comment: isolated. Susceptibilities previously reported. Gram Stain Aerobic Bottle: Gram positive cocci in clusters(Critical ) 10/01/2024 6:58 AM EST [facility] Blood VENOUS BLOOD SPECIMEN / Unknown Venipuncture / Unknown 09/26/2024 6:45 PM EST 09/26/2024 6:48 PM EST Marko Dickson MD MICROBIOLOGY - BLOOD ORDERABLES Performing Organization Address [facility]/ZIP Co de Phone Number [facility] [place] [address] * (ABNORMAL) Sonicated Tissue/Implant Culture (09/26/2024 5:16 PM EST) Sonicated Tissue/Implan t Culture Methicillin Resistant Staphylococcus aureus(A) VITEK 2 METHOD 09/30/2024 1:49 PM EST [facility] Comment: isolated from broth culture. Susceptibilities previously reported. Vascular Graft STRUCTURE OF LEFT LOWER LIMB / Unknown Non Blood Collection / Unknown 09/26/2024 5:16 PM EST 09/26/2024 5:45 PM EST Marko Dickson MD MICROBIOLOGY - GENER AL ORDERABLES Performing Organization Address [facility]/ZIP Co de Phone Number [facility] [place] [address] * Anaerobic Culture (09/26/2024 5:02 PM EST) Anaerobic Culture No anaerobic organisms isolated 09/30/2024 3:51 PM EST [facility] Abscess STRUCTURE OF LEFT KNEE REGION / Unknown Non Blood Collection / Unknown 09/26/2024 5:02 PM EST Comment:Left Below Knee popl iteal fluid Please perform Gram stain if not included in order Hayley Torres MD MICROBIOLOGY - GENER AL ORDERABLES Performing Organization Address City/[facility]/ZIP Co de Phone Number [facility] [place] [address] * (ABNORMAL) Abscess/Wound Aspirate Culture, Aerobic Only (09/26/2024 5:02 PM EST) Abscess/Wound Aspirate Culture Many Methicillin Resistant Staphylococcus aureus(A) VITEK 2 METHOD 09/30/2024 1:37 PM EST [facility] Gram Stain Many neutrophils(A) 09/30/2024 1:37 PM EST [facility] Gram Stain Many Gram positive cocci(A) 09/30/2024 1:37 PM EST [facility] Abscess STRUCTURE OF LEFT [...] - GENER AL ORDERABLES Performing Organization Address City/[facility]/ZIP Co de Phone Number [facility] [place] [address] * Anaerobic Culture (09/26/2024 4:50 PM EST) Anaerobic Culture No anaerobic organisms isolated 09/30/2024 3:51 PM EST [facility] Abscess LEFT INGUINAL REGION STRUCTURE / Unknown Non Blood Collection / Unknown 09/26/2024 4:50 PM EST Comment:Left Groin Fluid Hayley Torres MD MICROBIOLOGY - GENER AL ORDERABLES Performing Organization Address [facility]/ZIP Co de Phone Number [facility] [place] [address] * (ABNORMAL) Abscess/Wound Aspirate Culture, Aerobic Only (09/26/2024 4:50 PM EST) Abscess/Wound Aspirate Culture Many Methicillin Resistant Staphylococcus aureus(A) VITEK 2 METHOD 09/30/2024 1:36 PM EST [facility] Gram Stain Many neutrophils(A) 09/30/2024 1:36 PM EST [facility] Gram Stain Many Gram positive cocci(A) 09/30/2024 1:36 PM EST [facility] Abscess LEFT INGUINAL REGION [...] ug/ml: Susceptible Hayley Torres MD MICROBIOLOGY - [facility] AL ORDERABLES [facility] [place] [address] * (ABNORMAL) Blood Gas, Arterial POC (09/26/2024 4:43 PM EST) pH, Arterial 7.38 7.35 - 7.45 09/27/2024 7:41 AM EST [facility] PCO2, Arterial 41 35 - 45 mmHg 09/27/2024 7:41 AM [facility] PO2, Arterial 96 85 - 104 mmHg 09/27/2024 7:41 AM [facility] Bicarbonate, Arterial 23.8 20.0 - 26.0 mmol/L 09/27/2024 7:41 AM [facility] Base Excess, Arterial -1.4 -3.0 - 3.0 mmol/L 09/27/2024 7:41 AM [facility] Hemoglobin, Arterial 12.6(L) 13.7 - 16.5 g/dL 09/27/2024 7:41 AM [facility] Oxyhemoglobin, Arterial 96.2 94.0 - 97.0 % 09/27/2024 7:41 AM [facility] Carboxyhemoglobin , Arterial 0.3 % 09/27/2024 7:41 AM [facility] Comment: Nonsmokers: 0.5-1.5% COHB ?? Smokers: Variable ??but usually less than 10% ?? Toxic: 20-30% COHB ?? Lethal: Greater than 60% COHB Methemoglobin, Arterial 0.3 <=1.5 % 09/27/2024 7:41 AM [facility] Sodium, Arterial 128(L) 135 - 145 mmol/L 09/27/2024 7:41 AM [facility] Potassium, Arterial 3.0(LLL) 3.5 - 5.0 mmol/L 09/27/2024 7:41 AM [facility] Chloride, Arterial 95(L) 98 - 107 mmol/L 09/27/2024 7:41 AM [facility] Lactate, Arterial 1.7 0.5 - 2.2 mmol/L 09/27/2024 7:41 AM [facility] IONIZED CALCIUM, ARTERIAL 1.09(L) 1.15 - 1.33 mmol/L 09/27/2024 7:41 AM [facility] Glucose, Arterial 205(H) 65 - 199 mg/dL 09/27/2024 7:41 AM [facility] Comment:Glucose Concentratio n >=200 mg/dL plus symptoms is consistent with Diabetes Mellitus. Blood ARTERIAL BLOOD / Unknown 09/26/2024 4:43 PM EST 09/27/2024 7:41 AM EST Marko Dickson MD POINT OF CARE TEST O GIL[facility] [place] [address] * (ABNORMAL) POC, GLUCOSE (09/26/2024 4:29 PM EST) Glucometer, POC 213(H) 65 - 199 mg/dL 09/26/2024 4:30 PM EST [facility] Comment:Supplemental ranges: <140 mg/dL before meals <180 mg/dL all other times of the day. Blood CAPILLARY BLOOD / Unknown 09/26/2024 4:29 PM EST 09/26/2024 4:30 PM EST Marko Dickson MD POINT OF CARE TEST O GILDA Performing Organization Address City/[facility]/ZIP Co de Phone Number [facility] [place] [address] * (ABNORMAL) Blood Gas, Venous POC (09/26/2024 3:28 PM EST) pH, Venous 7.43(H) 7.32 - 7.42 09/26/2024 3:30 PM EST [facility] PCO2, Venous 41 38 - 58 mmHg 09/26/2024 3:30 PM EST [facility] PO2, Venous 18 16 - 65 mmHg 09/26/2024 3:30 PM EST [facility] Bicarbonate, Venous 26.6 22 - 31 mmol/L 09/26/2024 3:30 PM EST [facility] Base Excess, Venous 2.3 1.9 - 4.5 mmol/L 09/26/2024 3:30 PM EST [facility] Hemoglobin, Venous 12.4(L) 13.7 - 16.5 g/dL 09/26/2024 3:30 PM [facility] Oxyhemoglobin, Venous 26.8 % 09/26/2024 3:30 PM [facility] Carboxyhemoglobin , Venous 1.0 % 09/26/2024 3:30 PM EST [facility] Comment: Nonsmokers: 0.5-1.5% COHB ?? Smokers: Variable ??but usually less than 10% ?? Toxic: 20-30% COHB ?? Lethal: Greater than 60% COHB Methemoglobin, Venous 0.4 <=1.5 % 09/26/2024 3:30 PM EST [facility] Sodium, Venous 127(L) 135 - 145 mmol/L 09/26/2024 3:30 PM [facility] Potassium, Venous 3.3(L) 3.5 - 5.0 mmol/L 09/26/2024 3:30 PM [facility] Chloride, Venous 91(L) 98 - 107 mmol/L 09/26/2024 3:30 PM EST [facility] Glucose, Venous 259(H) 65 - 199 mg/dL 09/26/2024 3:30 PM EST [facility] Comment:Glucose Concentratio n >=200 mg/dL plus symptoms is consistent with Diabetes Mellitus. Lactate, Venous 2.2 0.5 - 2.2 mmol/L 09/26/2024 3:30 PM EST [facility] Ionized Calcium, Venous 1.09(L) 1.15 - 1.33 mmol/L 09/26/2024 3:30 PM EST [facility] Blood VENOUS BLOOD SPECIMEN / Unknown 09/26/2024 3:28 PM EST 09/26/2024 3:30 PM EST Marko Dickson MD POINT OF CARE TEST O RDERABLES [facility] [place] [address] * (ABNORMAL) Scan, Peripheral Blood (09/26/2024 2:39 PM EST) [facility] RBC Morphology Abnormal 09/26/2024 3:21 PM EST [facility] Platelet Estimate Normal Normal 09/26/2024 3:21 PM EST [facility] Microcyte 1-5 /HPF 09/26/2024 3:21 PM EST [facility] Platelet Clumps Present(A) (none) 3:21 PM EST [facility] WBC MORPHOLOGY See Comment(A) (none) 09/26/2024 3:21 PM EST [facility] Comment:Dohle BodiesToxic Gr anulation Blood VENOUS BLOOD SPECIMEN / Unknown Venipuncture / Unknown 09/26/2024 2:39 PM EST 09/26/2024 2:50 PM EST Marko Dickson MD HEMATOLOGY ORDERABLE S Performing Organization Address City/[facility]/ZIP Co de Phone Number [facility] [place] [address] * ABORH RECHECK (PATIENT HISTORY FOUND) (09/26/2024 2:39 PM EST) [facility] ABORH Recheck Progress Complete 09/26/2024 5:01 PM EST [facility] Blood VENOUS BLOOD SPECIMEN / Unknown Venipuncture / Unknown 09/26/2024 2:39 PM EST 09/26/2024 2:56 PM EST Marko Dickson MD BLOOD BANK LAB ORDER RANDELL [facility] [place] [address] * (ABNORMAL) Hepatic Function Panel (09/26/2024 2:39 PM EST) [facility] Albumin 3.1(L) 3.2 - 5.2 g/dL 09/26/2024 4:23 PM EST [facility] Aspartate Aminotransferase 16 <=39 unit/L 09/26/2024 4:23 PM EST [facility] Alanine Aminotransferase 14 0 - 55 unit/L 09/26/2024 4:23 PM [facility] Alkaline Phosphatase 160(H) 40 - 130 unit/L 09/26/2024 4:23 PM [facility] Bilirubin, Total 0.4 <=1.3 mg/dL 09/26/2024 4:23 PM [facility] Bilirubin, Direct 0.2 0.0 - 0.3 mg/dL 09/26/2024 4:23 PM [facility] Protein, Total 7.0 6.1 - 8.0 g/dL 09/26/2024 4:23 PM [facility] Blood VENOUS BLOOD SPECIMEN / Unknown Venipuncture / Unknown 09/26/2024 2:39 PM EST 09/26/2024 2:50 PM EST Marko Dickson MD CHEMISTRY ORDERABLES Performing Organization Address City/State/[facility] Co de Phone Number [facility] [place] [address] * (ABNORMAL) Basic Metabolic Panel (09/26/2024 2:39 PM EST) Glucose 254(H) 65 - 199 mg/dL 09/26/2024 4:32 PM [facility] Comment:Glucose Concentratio n >=200 mg/dL plus symptoms is consistent with Diabetes Mellitus. Blood Urea Nitrogen 9(L) 10 - 20 mg/dL 09/26/2024 4:32 PM [facility] Creatinine 0.55(L) 0.80 - 1.50 mg/dL 09/26/2024 4:32 PM [facility] Sodium 127(L) 135 - 145 mMol/L 09/26/2024 4:32 PM [facility] Potassium 3.4(L) 3.5 - 5.0 mMol/L 09/26/2024 4:32 PM [facility] Chloride 89(L) 98 - 107 mMol/L 09/26/2024 4:32 PM [facility] Carbon Dioxide 25 22 - 31 mMol/L 09/26/2024 4:32 PM EST [facility] Anion Gap 13 5 - 15 mMol/L 09/26/2024 4:32 PM EST [facility] Calcium 8.9 8.5 - 10.5 mg/dL 09/26/2024 4:32 PM EST [facility] Est Glomerular Filtration Rate - Male 121 mL/min/1. 73 m?? 09/26/2024 4:32 PM EST [facility] Comment: This patient's estimated [...] PM EST Hayley Torres MD CHEMISTRY ORDERABLES [facility] [place] [address] * (ABNORMAL) CBC (with Diff) (09/26/2024 2:39 PM EST) White Blood Cell 22.76(H) 4.00 - 9.50 x10(3)/mc L 09/26/2024 3:21 PM EST [facility] Red Blood Cell 4.20(L) 4.58 - 5.54 x10(6)/mc L 09/26/2024 3:21 PM EST [facility] Hemoglobin 12.3(L) 13.7 - 16.5 g/dL 09/26/2024 3:21 PM [facility] Hematocrit 35.0(L) 40.5 - 48.5 % 09/26/2024 3:21 PM [facility] Mean Cell Volume 83.3 82.9 - 93.1 fL 09/26/2024 3:21 PM [facility] Mean Cell Hemoglobin 29.3 27.5 - 32.1 pg 09/26/2024 3:21 PM [facility] Mean Cell Hemoglobin Concentration 35.1 32.0 - 35.7 g/dL 09/26/2024 3:21 PM [facility] Platelet 277 145 - 357 x10(3)/mc L 09/26/2024 3:21 PM [facility] Mean Platelet Volume 9.6 7.6 - 12.9 fL 09/26/2024 3:21 PM [facility] RDW Standard Deviation 37.9 36.0 - 45.0 fL 09/26/2024 3:21 PM [facility] RDW coefficient of variation 12.6 11.4 - 13.8 % 09/26/2024 3:21 PM [facility] NRBC% auto 0.0 % 09/26/2024 3:21 PM [facility] NRBC Absolute <0.01 <0.01 x10(3)/mc L 09/26/2024 3:21 PM [facility] Neutrophil % 84.0 % 09/26/2024 3:21 PM [facility] Comment:This is an appended report. These results have been appended to a previously preliminary verified report. Neutrophil Absolute (ANC) - Automated 19.10(H) 1.70 - 6.10 x10(3)/mc L 09/26/2024 3:21 PM [facility] Comment:This is an appended report. These results have been appended to a previously preliminary verified report. Lymph % 6.2 % 09/26/2024 3:21 PM [facility] Comment:This is an appended report. These results have been appended to a previously preliminary verified report. Lymph Absolute 1.41 0.90 - 3.20 x10(3)/mc L 09/26/2024 3:21 PM [facility] Comment:This is an appended report. These results have been appended to a previously preliminary verified report. Monocyte % 8.1 % 09/26/2024 3:21 PM [facility] Comment:This is an appended report. These results have been appended to a previously preliminary verified report. Monocyte Absolute 1.85(H) 0.30 - 0.90 x10(3)/mc L 09/26/2024 3:21 PM [facility] Comment:This is an appended report. These results have been appended to a previously preliminary verified report. Eos % 0.0 % 09/26/2024 3:21 PM [facility] Comment:This is an appended report. These results have been appended to a previously preliminary verified report. Eos Absolute <0.04 0.00 - 0.40 x10(3)/mc L 09/26/2024 3:21 PM [facility] Comment:This is an appended report. These results have been appended to a previously preliminary verified report. Basophil % 0.5 % 09/26/2024 3:21 PM [facility] Comment:This is an appended report. These results have been appended to a previously preliminary verified report. Baso Absolute 0.11(H) 0.00 - 0.10 x10(3)/mc L 09/26/2024 3:21 PM [facility] Comment:This is an appended report. These results have been appended to a previously preliminary verified report. Immature Gran % 1.2 % 3:21 PM [facility] Comment:This is an appended report. These results have been appended to a previously preliminary verified report. Immature Gran Absolute 0.28(H) 0.00 - 0.04 x10(3)/mc L 09/26/2024 3:21 PM [facility] Comment:This is an appended report. These results have been appended to a previously preliminary verified report. Blood VENOUS BLOOD SPECIMEN / Unknown Venipuncture / Unknown 09/26/2024 2:39 PM EST 09/26/2024 2:50 PM EST Hayley Torres MD HEMATOLOGY ORDERABLE S Performing Organization Address [facility] Co de Phone Number [facility] [place] [address] * Phosphorus (09/26/2024 2:39 PM EST) Pathologist [facility] Phosphorus 3.2 2.5 - 4.5 mg/dL 09/26/2024 4:05 PM EST [facility] Blood VENOUS BLOOD SPECIMEN / Unknown Venipuncture / Unknown 09/26/2024 2:39 PM EST 09/26/2024 2:50 PM EST Marko Dickson MD CHEMISTRY ORDERABLES Performing Organization Address [facility] Co de Phone Number [facility] [place] [address] * (ABNORMAL) Magnesium (09/26/2024 2:39 PM EST) [facility] Magnesium 0.65(L) 0.69 - 1.07 mMol/L 09/26/2024 4:05 PM EST [facility] Blood VENOUS BLOOD SPECIMEN / Unknown Venipuncture / Unknown 09/26/2024 2:39 PM EST 09/26/2024 2:50 PM EST Marko Dickson MD CHEMISTRY ORDERABLES Performing Organization Address [facility] Co de Phone Number [facility] [place] [address] * Type and screen ([facility]/BABITA) (09/26/2024 2:39 PM EST) Pathologist [facility] ABORH Type A POSITIVE 09/26/2024 3:45 PM EST [facility] PATIENT HISTORY Found 09/26/2024 3:45 PM EST [facility] Expires at [id number] on: 09/29/2024 09/26/2024 3:45 PM EST [facility] ANTIBODY SCREEN AUTOMATED Negative 09/26/2024 3:45 PM EST [facility] T&S only valid at [facility] 09/26/2024 3:45 PM EST [facility] Blood VENOUS BLOOD SPECIMEN / Unknown Venipuncture / Unknown 09/26/2024 2:39 PM EST 09/26/2024 2:56 PM EST Narrative [facility] - 09/26/2024 3:45 PM EST This Type and Screen result is only valid at the [facility] Marko Dickson MD BLOOD BANK LAB ORDER RANDELL Performing Organization Address City/[facility]/ZIP Co de Phone Number [facility] [place] [address] * (ABNORMAL) Fibrinogen (09/26/2024 2:39 PM EST) Fibrinogen >1,000(H) 200 - 393 mg/dL 09/26/2024 3:09 PM EST [facility] Comment: A fibrinogen level >100 mg/dL is adequate for hemostasis in most patients without underlying bleeding disorders. Blood VENOUS BLOOD SPECIMEN / Unknown Venipuncture / Unknown 09/26/2024 2:39 PM EST 09/26/2024 2:50 PM EST Marko Dickson MD HEMATOLOGY ORDERABLE S Performing Organization Address City/[facility]/ZIP Co de Phone Number [facility] [place] [address] * APTT (09/26/2024 2:39 PM EST) Partial Thromboplastin Time 36 25 - 37 sec 09/26/2024 3:09 PM EST [facility] Comment: The PTT is NOT appropriate for heparin monitoring. Use the Anti-Xa level for heparin monitoring (HEP UFH) or LMWH monitoring (HEP LMW). A PTT less than 37 seconds generally indicates adequate hemostasis. Blood VENOUS BLOOD SPECIMEN / Unknown Venipuncture / Unknown 09/26/2024 2:39 PM EST 09/26/2024 2:50 PM EST Marko Dickson MD HEMATOLOGY ORDERABLE S Performing Organization Address [facility] Co de Phone Number [facility] [place] [address] * (ABNORMAL) Prothrombin Time (09/26/2024 2:39 PM EST) Prothrombin Time 21.6(H) 9.4 - 12.5 sec 09/26/2024 3:09 PM EST [facility] International Normalization Ratio 1.9 <=4.9 09/26/2024 3:09 PM EST [facility] Comment: An INR < [...] MD HEMATOLOGY ORDERABLE S Performing Organization Address [facility] Co de Phone Number [facility] [place] [address] * (ABNORMAL) POC, GLUCOSE (09/26/2024 2:36 PM EST) Glucometer, POC 268(H) 65 - 199 mg/dL 09/26/2024 2:36 PM EST [facility] Comment:Supplemental ranges: <140 mg/dL before meals <180 mg/dL all other times of the day. Blood CAPILLARY BLOOD / Unknown 09/26/2024 2:36 PM EST 09/26/2024 2:36 PM EST Marko Dickson MD POINT OF CARE TEST O RDERABLES Performing Organization Address [facility] Co de Phone Number [facility] [place] [address] * (ABNORMAL) Blood culture (09/26/2024 2:22 PM EST) Blood Culture Methicillin Resistant Staphylococcus aureus(Critical) VITEK 2 METHOD 10/07/2024 7:40 AM EST [facility] Comment: detected by PCR Isolate saved. If future testing is required, contact the Microbiology Residence Counselor. Gram Stain Aerobic Bottle: Gram positive cocci in clusters(Critical ) 10/07/2024 7:40 AM EST [facility] Blood VENOUS BLOOD SPECIMEN [...] MICROBIOLOGY - BLOOD ORDERABLES Performing Organization Address [facility]/ZIP Co de Phone Number [facility] [place] [address] * Request For 2nd Read CT Lower Extremity (09/26/2024 1:50 PM EST) WORKSTATION ID [id number] DH RAD Anatomical Region Laterality Modality Hip, [...] who have questions please contact the health human services care specialist that requested your imaging first. ? Narrative 09/26/2024 3:01 PM EST EXAMINATION: REQUEST FOR 2ND READ CT LOWER EXTREMITY CLINICAL HISTORY: Pt s/p LLE femoral-below knee popliteal bypass with PTFE graft, c/f infection surrounding graft, en route to [facility] for possible vascular surgery intervention; Sending Institution [facility]; Date of exam [id number]; I believe [...] series 3, image 8 and 641, 272, 513, 652. No other rim-enhancing fluid collection is seen. [...] c/f infection surrounding graft, en route to [facility] for possiblevascular surgery intervention; Sending Institution [facility]; Date of exam [id number]; Ibelieve a [...] on series 3, image 8 and 641, [phone]. No other rim-enhancing fluid collection is [...] patients who have questions please contactthe health human services care specialist that requested your imaging first. [...] Zavala, DAVID)1446 (Given - Provider: Terell Araiza, DAVID) insulin glargine-ygfn (Semglee) (100 unit/mL) subcutaneous injection vial 25 Units 25 Units, Subcutaneous, 2 TIMES DAILY, First dose (after last modification) on Wed09/28/24 at 0900, Until Discontinued, Routine 0903 (Given - Provider: Indria Tracey RN)2029 (Given - Provider: Jordyn Navas [...] Indira Tracey, DAVID)1754 (Given - Provider: Indira Tracey RN) 0800 [...] Indira Tracey RN)2030 (Given - Provider: Jordyn Navas, DAVID) 0035 (Given - Provider: Jordyn Navas RN)0400 [...] RN) 09 (Given - Provider: Jaja Diallo, DAVID)2022 (Given - Provider: Lauren Zavala RN) 0831 [...] 09 (Given - Provider: Jaja Diallo, DAVID) 0831 [...] Routine 0856 (Given - Provider: Indira Tracey RN)202 (Given - Provider: Jordyn Navas RN) 0902 [...] Intravenous, EVERY 15 MIN PRN, Starting on 09/27/24 at 1700, Until Wed10/10/24 at 1912, Low [...] dose, Starting on 10/01/24 at 0848, Until Tu10/10/24 at 1912, Constipation, Give if no BM [...] Routine documented in this encounter Care Teams Dairy Nutrition Consultant Relationship Specialty Start Date End Date Nick, Charles Chemo, PA [facility] [place] [address] PCP - General Internal Medicine 09/18/24 documented as of this encounter
--- OUTSIDE RECORDS SUMMARY | 2024-10-20 12:49 | XMS_ITS | Encounter Summary ---
Author Organization [facility] Address [facility] [place] [address] Care Team Providers Care Chief Embalmer Name Role Phone Charles Romero Primary Care Provider + Encounter Details Date Type Department Care Team (Late st Contact Info) Description 09/26/2024 Notes Only [place] [address] Marko Dickson MD [facility] [place] [address] Social History Tobacco Use Types Packs/Day Years Used Date Smoking Tobacco: Every Day Cigarettes 1 25 Started: 12/28/1986; Last attempted to quit: 12/28/2011 Smokeless Tobacco: Never Alcohol Use Standard Drinks/Week Comments No 0 (1 standard drink = 0.6 oz pur e alcohol) [facility] Utilities Answer Date Recorded In [...] any time in the past 12 m [facility], were you homeless or living in a halfway (including now)? No 09/27/2024 IPV Inpatient Questions [...] 10/23/2024 1:00 PM EST Appointment XRay at [address] [place] [address] Isabela Hayward TUMBLING AND ROLLING SUPERVISOR [facility] [place] [address] 11/09/2024 1:30 PM EST Office [place] [address] Isabela Hayward TUMBLING AND ROLLING SUPERVISOR [facility] [place] [address] 11/10/2024 10:00 AM EST Office Visit [place] [phone] Dai Whitman APRN 11/21/2024 2:15 PM EST Office [place] [address] Dayanara Grover MD [facility] [place] [address] documented as of this encounter Visit Diagnoses Not on filedocumented in this encounter Care Teams Chief Embalmer Relationship Specialty Start Date End Date Charles Romero PA [facility] [place] [address] PCP - General Internal Medicine 09/18/24 documented as of this encounter
--- OUTSIDE RECORDS SUMMARY | 2024-10-20 12:49 | XMS_ITS | Encounter Summary ---
Author Organization [facility] [place] [address] Care Team Providers Care School Athletic Director Name Role Phone Charles Romero Primary Care Provider + Encounter Details Date Type Department Care Team (Late st Contact Info) Description 09/25/2024 Telephone [place] [phone] Fallon Lemus, RN Social History Tobacco Use Types Packs/Day Years Used Date Smoking Tobacco: Every Day Cigarettes 12 02 Started: 12/28/1986; Last attempted to quit: 12/28/2011 Smokeless Tobacco: Never Alcohol Use Standard Drinks/Week Comments No 0 (1 standard drink = 0.6 oz pur e alcohol) [facility] Utilities Answer Date Recorded In the past 12 months has e [employer], gas, oil, or water [employer] threatened to shut off services in your [...] any time in the past 12 m [facility], were you homeless or living in a assisted (including now)? No 08/02/2024 IPV Inpatient Questions [...] Telephone Encounter - Fallon Lemus RN - 09/25/2024 3:20 PM EST Incoming call from Rebeca with [facility] reporting that she was with Lux who is reporting pain in his right groin, and some noticeable swelling and warmth to his right calf. She reports a small hard bump in his groin. Lux had called last week and reported the groin pain and that he went to the emergency room, had an ultrasound done which reportedly was negative. The A nurse thought Lux went to [facility], but according to Lux, he came to . No records from either emergency room are noted in patient chart. Reebca was advised that Lux should go to the emergency room for evaluation. Rebeca verbalized agreement and understanding. DAVID Viverosbusiness department chair [facility] documented in this encounter Plan of Treatment Upcoming Encounters Date Type Department Care Team (Late st Contact Info) Description 10/23/2024 1:00 PM EST Appointment XRay at [address] [place] [address] Isabela Hayward, PAPER MACHINE SUPERVISOR [facility] [place] [address] 11/09/2024 1:30 PM EST Office [place] [address] Isabela Hayward, [facility] [place] [address] 11/10/2024 10:00 AM EST Office Visit Vascular Surgery at [place] [phone] Dai Whitman, RESHMA 11/21/2024 2:15 PM EST Office Visit Endocrinology at [place] [phone] Dayanara Grover MD [facility] [place] [address] documented as of this encounter Visit Diagnoses Not on filedocumented in this encounter Care Teams School Athletic Director Relationship Specialty Start Date End Date Charles Romero PA [facility] [place] [address] PCP - General Internal Medicine 09/18/24 documented as of this encounter
--- OUTSIDE RECORDS SUMMARY | 2024-10-20 12:49 | XMS_ITS | Encounter Summary ---
Author Organization [facility] Address [facility] [place] [address] Care Team Providers Care Freezer Laboratory Technician Name Role Phone Charles Romero Primary Care Provider + Encounter Details Date Type Department Care Team (Late st Contact Info) Description 09/26/2024 1:55 PM EST Ancillary Procedure Radiology Library at [facility], [place], [place] [address] Marko Dickson MD [facility] [place] [address] Social History Tobacco Use Types Packs/Day Years Used Date Smoking Tobacco: Every Day Cigarettes 1 25 Started: 12/28/1986; Last attempted to quit: 12/28/2011 Smokeless Tobacco: Never Alcohol Use Standard Drinks/Week Comments No 0 (1 standard drink = 0.6 oz pur e alcohol) [facility] Utilities Answer Date Recorded In the [...] the past [address] [facility], were you homeless or living [...] 1:00 PM EST Appointment XRay at [address] [place] [address] Isabela Hawyard FINANCE EXECUTIVE [facility] INFECTIOUS [place] [address] 11/09/2024 1:30 PM EST Office [place] [address] Isabela Hayward APRN [facility] [place] [address] 11/10/2024 10:00 AM EST Office [place] [address] Dai Whitman APRN 11/21/2024 2:15 PM EST Office [place] [address] Dayanara Grover MD [facility] DR [place] [address] documented as of this encounter Procedures Procedure Name Priority Date/Time Associated Diagnosis Comments REQUEST FOR 2ND READ CT LOWER EXTREMITY Routine 09/26/2024 1:50 PM EST documented in this encounter Results * Request For 2nd Read CT Lower Extremity (09/26/2024 1:50 PM EST) [employer] WORKSTATION ID [id number] [facility] Anatomical [...] recruiter that requested your imaging first. ? Electronically signed by: Lisette Bruno MD, [facility] ([phone]), at 09/26/2024 3:01 PM Narrative 09/26/2024 3:01 PM EST EXAMINATION: REQUEST FOR 2ND READ CT LOWER EXTREMITY CLINICAL HISTORY: Pt s/p LLE femoral-below knee popliteal bypass with PTFE graft, c/f infection surrounding graft, [place] [facility] [place]; Sending Institution [facility]; Date of exam [id number]; I believe [...] on series 3, image 8 and 641, 442, 318, 222. No other rim-enhancing fluid collection is [...] surrounding graft, en route [place] [facility] [place]; Sending Institution [facility]; Date of exam [id number]; Ibelieve a [...] healthcare recruiter that requested your imaging first. Electronically signed by: Lisette Bruno MD, [facility]([phone]), at 09/26/2024 3:01 PM Marko Dickson MD IMG OUTSIDE INTERPRE TATION ORDERABLES documented in this encounter Visit Diagnoses Not on filedocumented in this encounter Care Teams Freezer Laboratory Technician Relationship Specialty Start Date End Date Charles Romero [place] [place] [address] PCP - General Internal Medicine 09/18/24 documented as of this encounter
--- OUTSIDE RECORDS SUMMARY | 2024-10-20 12:49 | XMS_ITS | Encounter Summary ---
Author Organization [facility] Address [facility] [place] [address] Care Team Providers Care Bottle Caser Name Role Phone Charles Romero Primary Care Provider + Encounter Details Date Type Department Care Team (Late st Contact Info) Description 09/20/2024 Ancillary Procedure Radiology Library at [facility] [place] [address] Marko Dickson MD [facility] [place] [address] Social History Tobacco Use Types Packs/Day Years Used Date Smoking Tobacco: Every Day Cigarettes 1 25 Started: 12/28/1986; Last attempted to quit: 12/28/2011 Smokeless Tobacco: Never Alcohol Use Standard Drinks/Week Comments No 0 (1 standard drink = 0.6 oz pur e alcohol) [facility] Utilities Answer Date Recorded In the past 12 months has [employer] electric, gas, oil, or water [employer] threatened to shut off services in your [...] any time in the past 12 m [facility], were you homeless or living in a fdc (including now)? No 08/02/2024 IPV Inpatient Questions [...] 10/23/2024 1:00 PM EST Appointment XRay at [address] [place] [address] Isabela Hayward SCIENTIFIC HELPER [facility] [place] [address] 11/09/2024 1:30 PM EST Office [place] [address] Isabela Hayward SCIENTIFIC HELPER [facility] [place] [address] 11/10/2024 10:00 AM EST Office [place] [address] Dai Whitman APRN 11/21/2024 2:15 PM EST Office [place] [address] Dayanara Grover MD [facility] [place] [address] documented as of this encounter Procedures Procedure Name Priority Date/Time Associated Diagnosis Comments FILM LIBRARY STORAGE ONLY CT LOWER EXTREMITY Routine 09/20/2024 12:00 AM EST documented in this encounter Results * Film Library- Storage Only CT Lower Extremity (09/20/2024 12:00 AM EST) Narrative [facility][NOTE 3] - 09/26/2024 1:48 PM EST This exam is auto-finalizing. It's purpose is for storage only. Marko Dickson MD IMG FILM LIBRARY ORD ERABLES Performing Organization Address City/State/[facility] Co de Phone Number [place], [place] documented in this encounter Visit Diagnoses Not on filedocumented in this encounter Care Teams Bottle Caser Relationship Specialty Start Date End Date Charles Romero PA [address] [place] [address] PCP - General Internal Medicine 09/18/24 documented as of this encounter
--- OUTSIDE RECORDS SUMMARY | 2024-10-20 12:49 | XMS_ITS | Encounter Summary ---
Author Organization [place] [address] Care Team Providers Care Supervisor Shipfitters Name Role Phone Charles Romero Primary Care Provider + Reason for Visit * Consultation (Urgent) - Closed Specialty Diagnoses / Procedures Referred By William t Referred To Contact Cardiology Diagnoses History of heart failure History of non-ST elevation myocardial infarction (NSTEMI) Critical limb ischemia of left lower extremity H/O heart failure and NSTEMI, HFmrEF, Cardiomyopathy, Hx of CABG. PMH critical limb ischemia of left lower extremity. Vibha Benson APRN [facility] [place] [address] [facility] [address] [place] [phone] Referral ID Status Reason Start Date Expiration Date V isits Requested Visits Authorized [id number] Closed Consult, Test & Treat 08/28/2024 08/28/2025 1 1 Encounter Details Date Type Department Care Team (Late st Contact Info) Description 09/18/2024 11:20 AM EST Office Visit Cardiology at [address] [address] Josh Olivarez MD [facility] [place] [address] Coronary artery disease, unspecified vessel or lesion type, unspecified whether angina present, unspecified whether chefornak or transplanted heart Social History Tobacco Use Types Packs/Day Years Used Date Smoking Tobacco: Every Day Cigarettes 12 02 Started: 12/28/1986; Last attempted to quit: 12/28/2011 Smokeless Tobacco: Never Alcohol Use Standard Drinks/Week Comments No 0 (1 standard drink = 0.6 oz pur e alcohol) [facility] Utilities Answer Date Recorded In the past 12 months has th e [employer], gas, oil, or water [employer] threatened to shut off services in your [...] from the original note were not included[place] [address] [address] CARDIOLOGY OUTPATIENT PROGRESS NOTE PRIMARY CARE PROVIDER: JUSTIN Roberson REFERRING PROVIDER: Vibha Benson PROBLEM LIST: Patient Active Problem List Diagnosis 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 (SVG to PDA closed 08/2013) NSTEMI 12-29-2011 Cath - LAD, PDA and Distal Circ Disease CABG 01-04-2012 (MATRINEZ-LAD, SVG-PDA) Cardiac Cath 08/21/13: [patent AMRTINEZ to LAD, occlusion of SVG to RPDA and occlusion of chefornak RCA. LVEDP 21. PCI of mid and [...] up with PCP or Dr Bird in [facility] [place] Obesity Weight is 130.5 Kg on 08/22/13 NSTEMI (non-ST elevated myocardial infarction) , NSTEMI, LHC HTN (hypertension) Hyperlipidemia Depression Narcolepsy MEDICATIONS: Current Outpatient Medications Medication Sig Dispense Refill senna-docusate (Pericolace) 8.6-50 mg Tablet Take 2 tablets by mouth 2 times daily. 60 tablet 11 freestyle lite strips 1 strip by Other route 3 times daily. Use as instructed Indications: [id number] each 1 FreeStyle Lancets 28 gauge Misc [...] Abdomen: Nondistended. Soft. Nontender. Extremities: No edema. RESEARCH STUDY ASSISTANT: Normal mentation. Psych: Appropriate affect. Labs: Lab [...] 10/23/2024 1:00 PM EST Appointment XRay at [address] [place] [address] Isabela Hayward, [facility] [place] [address] 11/09/2024 1:30 PM EST Office Visit Infectious Disease at [place] [phone] Isabela Hayward, [facility] [place] [address] 11/10/2024 10:00 AM EST Office Visit Vascular Surgery at [place] [phone] Dai Whitman APRN 11/21/2024 2:15 PM EST Office Visit Endocrinology at [place] [phone] Dayanara Grover MD [facility] [place] [address] Scheduled Referrals Name Type Priority Associated Diagnoses Order Schedule Referral to Cardiology Outpatient Referral Urgent Critical limb ischemia of left lower extremity Ordered: 08/28/2024 documented as of this encounter Visit Diagnoses Diagnosis Coronary artery disease, unspecified vessel or lesion type, unspecified whether angina present, unspecified whether chefornak or transplanted heart documented in this encounter Care Teams Supervisor Shipfitters Relationship Specialty Start Date End Date Charles Romero [place] [address] PCP - General Internal Medicine 09/18/24 documented as of this encounter
--- OUTSIDE RECORDS SUMMARY | 2024-10-20 12:49 | XMS_ITS | Encounter Summary ---
Author Organization [facility] [place] [address] Care Team Providers Care Net Sql Developer Name Role Phone None Primary Care Provider Unavailabl e Reason for Referral * Diagnostic Test (Routine) - New Request Specialty Diagnoses / Procedures Referred By William moses Referred To Contact Diagnoses Critical limb ischemia of left lower extremity Procedures Unilat Bypass Graft Assess Dago White APRN [facility] [place] [address] [facility] Vascular Lab [address] [place] [address] Referral ID Status Reason Start Date Expiration Date Visits Requested Visits Authorized [id number] New Request Specialty Service Requested 4 08/28/2025 1 1 Encounter Details Date Type Department Care Team (Late st Contact Info) Description 08/28/2024 Orders [place] [address] Dago White APRN [facility] [place] [address] Critical limb ischemia of left [...] 1:00 PM EST Appointment XRay at [address] [place] [address] Isabela Hayward, STAFF PHYSICAL THERAPY ASSISTANT [facility] [place] [address] 11/09/2024 1:30 PM EST Office Visit [place] [phone] Isabela Hayward, STAFF PHYSICAL THERAPY ASSISTANT [facility] [place] [address] 11/10/2024 10:00 AM EST Office Visit [place] [address] Dai Whitman, STAFF PHYSICAL THERAPY ASSISTANT 11/21/2024 2:15 PM EST Office [place] [address] Dayanara Grover MD [facility] [place] [address] documented as of this encounter Results * Unilat Bypass Graft Assess (08/28/2024 12:55 PM EDT) VB Text Report Department: Vascular Surgery Lab Patient: [id number] (GEOVANNA ARAYA) CPT: 64878 Referring Physician: DAGO SNIDER ?? Phone: Indications: [...] 08/28/2024 12:5 5 PM EDT Dago White STAFF PHYSICAL THERAPY ASSISTANT VASCULAR ORDERABLE S [facility] documented in this encounter Visit Diagnoses Diagnosis Critical limb ischemia of left lower extremity documented in this encounter Care Teams Net Sql Developer Relationship Specialty Start Date End Date None None PCP - General 05/27/24 09/17/24 documented as of this encounter
--- OUTSIDE RECORDS SUMMARY | 2024-10-20 12:49 | XMS_ITS | Encounter Summary ---
Author Organization [facility] [place] [address] Care Team Providers Care Political Science Instructor Name Role Phone None Primary Care Provider [...] in a fpc (including now)? No 08/02/2024 [facility] Inpatient Questions Answer Date Recorded Does Anyone [...] 1:00 PM EST Appointment XRay at [address] [place] [address] Isabela Hayward, [facility] [place] [address] 11/09/2024 1:30 PM EST Office [place] [phone] Isabela Hayward, [facility] [place] [address] 11/10/2024 10:00 AM EST Office Visit [place] [address] Dai Whitman APRN 11/21/2024 2:15 PM EST Office [place] [phone] Dayanara Grover MD [facility] [place] [address] documented as of this encounter Visit Diagnoses Not on filedocumented in this encounter Care Teams Political Science Instructor Relationship Specialty Start Date End Date None None PCP - General 05/27/24 09/17/24 documented as of this encounter
--- OUTSIDE RECORDS SUMMARY | 2024-10-20 12:49 | XMS_ITS | Encounter Summary ---
[place] [address] Care Team Providers Care Radio Performer Name Role Phone None Primary Care Provider [...] of left lower extremity. Vibha Benson APRN [facility] [place] [address] [facility] [address] [place] [phone] Referral ID Status Reason Start Date Expiration Date V isits Requested Visits Authorized [id number] Closed Consult, Test & Treat 08/28/2024 08/28/2025 1 1 Encounter Details Date Type Department Care Team (Late st Contact Info) Description 08/28/2024 Orders [place] [address] Vibha Benson APRN [facility] [place] [address] Critical limb ischemia of left lower extremity Social History Tobacco Use Types Packs/Day Years Used Date Smoking Tobacco: Every Day Cigarettes 12 02 Started: 12/28/1986; Last attempted to quit: 12/28/2011 Smokeless Tobacco: Never Alcohol Use Standard Drinks/Week Comments No 0 (1 standard drink = 0.6 oz pur e alcohol) [facility] Utilities Answer Date Recorded In the [...] living in a intermediate (including now)? No 08/02/2024 IPV Inpatient Questions [...] 10/23/2024 1:00 PM EST Appointment XRay at [address] [place] [address] Isabela Hayward, RESHMA [facility] [place] [address] 11/09/2024 1:30 PM EST Office [place] [address] Isabela Hayward, COMPRESSOR STATION CHIEF ENGINEER [facility] [place] [address] 11/10/2024 10:00 AM EST Office [place] [address] Dai Whitman APRN 11/21/2024 2:15 PM EST Office [place] [address] Dayanara Grover MD [facility] [place] [address] Scheduled Referrals Name Type Priority Associated Diagnoses Order Schedule Referral to Cardiology Outpatient Referral Urgent Critical limb ischemia of left lower extremity Ordered: 08/28/2024 documented as of this encounter Visit Diagnoses Diagnosis Critical limb ischemia of left lower extremity documented in this encounter Care Teams Radio Performer Relationship Specialty Start Date End Date None None PCP - General 05/27/24 09/17/24 documented as of this encounter
--- OUTSIDE RECORDS SUMMARY | 2024-10-20 12:49 | XMS_ITS | Encounter Summary ---
Author Organization [facility] Address [facility] [place] [address] Care Team Providers Care Blacksmith Supervisor Name Role Phone None Primary Care Provider Unavailabl e Encounter Details Date Type Department Care Team (Late st Contact Info) Description 08/17/2024 3:30 PM EDT Office [place] [address] Viviana Resendiz, RESHAM [facility] [place] [address] PAD (peripheral artery disease); Encounter for post surgical wound check; Status post amputation of lesser toe of left foot Social History Tobacco Use Types Packs/Day Years Used Date Smoking Tobacco: Every Day Cigarettes 1 25 Started: 12/28/1986; Last attempted to quit: 12/28/2011 Smokeless Tobacco: Never Alcohol Use Standard Drinks/Week Comments No 0 (1 standard drink = 0.6 oz pur e alcohol) [facility] Utilities Answer Date Recorded In the past 12 months has [facility] electric, gas, oil, or water company threatened [...] this encounter Progress Notes * Viviana Resendiz, RESHMA - 08/17/2024 3:30 PM EDT Images from the original note were not included. Vascular Follow-Up Reason for Visit: Lux Dixon Jr. is a 49 y.o. male presenting for [...] 3 times daily. Use as instructed Indications: [id number] each 1 FreeStyle Lancets 28 gauge Misc [...] Center 08/28/2024 1:00 PM Erick Jama [place] [facility] VAS LAB AMY CROOKS 08/28/2024 2:00 PM Marko Dickson MD [facility] [place] Viviana Resendiz APRN Department of Vascular Surgery documented in this encounter Plan of Treatment Upcoming Encounters Date Type Department Care Team (Late st Contact Info) Description 10/23/2024 1:00 PM EST Appointment XRay at [address] [place] [address] Isabela Hayward CUSTOMER EXPERIENCE PROFESSIONAL [facility] [place] [address] 11/09/2024 1:30 PM EST Office [place] [address] Isabela Hayward CUSTOMER EXPERIENCE PROFESSIONAL [facility] [place] [address] 11/10/2024 10:00 AM EST Office [place] [address] Dai Whitman APRN 11/21/2024 2:15 PM EST Office [place] [address] Dayanara Grover MD [facility] [place] [address] documented as of this encounter Visit Diagnoses Diagnosis PAD (peripheral artery disease) Peripheral vascular disease, unspecified Encounter for post surgical wound check Status post amputation of lesser toe of left foot documented in this encounter Care Teams Blacksmith Supervisor Relationship Specialty Start Date End Date None None PCP - General 05/27/24 09/17/24 documented as of this encounter
--- OUTSIDE RECORDS SUMMARY | 2024-10-20 12:49 | XMS_ITS | Encounter Summary ---
Author Organization [facility] [place] [address] Care Team Providers Care Motorcycle Maker Name Role Phone Charles Romero Primary Care Provider + Encounter Details Date Type Department Care Team (Late st Contact Info) Description 09/21/2024 Telephone [place] [address] Lovely Huitron, RN Social History Tobacco Use Types Packs/Day Years Used Date Smoking Tobacco: Every Day Cigarettes 1 25 Started: 12/28/1986; Last attempted to quit: 12/28/2011 Smokeless Tobacco: Never Alcohol Use Standard Drinks/Week Comments No 0 (1 standard drink = 0.6 oz pur e alcohol) [facility] Utilities Answer Date Recorded In the past 12 months has e [employer], gas, oil, or water [employer] threatened to shut off services in your [...] encounter Miscellaneous Notes * Telephone Encounter - Lovely Huitron RN - 09/21/2024 10:27 AM EST Pt placed call to vascular clinic for ongoing RLE aching. Per pt the aching started a couple of days ago and is bad enough that it is hard for him to walk. Pt reported that the aching is localized tohis right groin area. Pt denied that the area is red, hot or swollen. Pt denied numbness and tingling. Pt reported that he went to the [facility] emergency room yesterday for the aching and they did a CT scanwhich per pt did not show anything. Pt reported that the ED provider gave him a prescription for pain medication (pt believes it was for hydrocodone-acetaminophen). Pt reported that he has not taken any OTC pain medications. Pt reported that prior to the pain starting he wore different shoes than he normally does and spentall day on his feet. Pt is not sure if he may have pulled a muscle. RN advised pt to go back to the ED if he develops redness, swelling, warmth, numbness and/or tingling or if he develops signs/symptoms of infection. Pt verbalized understanding. Pt was informed that his report will be forwarded to Dr. Dickson for review and input. When this is available pt will be called back. Pt is agreeable to plan. documented in this encounter Plan of Treatment Upcoming Encounters Date Type Department Care Team (Late st Contact Info) Description 10/23/2024 1:00 PM EST Appointment XRay at [address] [place] [address] Isabela Hayward, [facility] [place] [address] 11/09/2024 1:30 PM EST Office [place] [phone] Isabela Hayward, [facility] [place] [address] 11/10/2024 10:00 AM EST Office Visit [place] [phone] Dai Whitman APRN 11/21/2024 2:15 PM EST Office [place] [phone] Dayanara Grover MD [facility] [place] [address] documented as of this encounter Visit Diagnoses Not on filedocumented in this encounter Care Teams Motorcycle Maker Relationship Specialty Start Date End Date Charles [place] [address] PCP - General Internal Medicine 09/18/24 documented as of this encounter
--- OUTSIDE RECORDS SUMMARY | 2024-10-20 12:49 | XMS_ITS | Encounter Summary ---
Author Organization [facility] Address [facility] [place] [address] Care Team Providers Care Group Supervisor Yard Name Role Phone None Primary Care Provider Unavailabl e Encounter Details Date Type Department Care Team (Late st Contact Info) Description 09/06/2024 Notes Only [place] [id number] Fallon Lemus RN Social History Tobacco Use Types Packs/Day Years Used Date Smoking Tobacco: Every Day Cigarettes 1 25 Started: 12/28/1986; Last attempted to quit: 12/28/2011 Smokeless Tobacco: Never Alcohol Use Standard Drinks/Week Comments No 0 (1 standard drink = 0.6 oz pur e alcohol) [facility] Utilities Answer Date Recorded In the past 12 months has [facility] [employer], gas, oil, or water Race Yourself threatened to shut off services in your [...] any time in the past 12 m [facility], were you homeless or living in a jail (including now)? No 08/02/2024 IPV Inpatient Questions [...] 09/06/2024 2:44 PM EDT Spoke with Dr. Dickson regarding the earlier call from Alda. Wound dressing should be as follows: Daily: [place] 1st and 5th toe with Betadine [place] 2nd to amp site with Betadine Cover amp site wound with band-aid Wrap leg with candice wrap Patient to continue wearing off loading shoe until wound completely healed. Spoke with Lux's mother and advised that a new off-loading shoe would be sent to them. This note will be routed to [facility] documented in this encounter Plan of Treatment Upcoming Encounters Date Type Department Care Team (Late st Contact Info) Description 10/23/2024 1:00 PM EST Appointment XRay at [address] [place] [phone] Isabela Hayward APRN [facility] INFECTIOUS DISEASE [place] [id number] 11/09/2024 1:30 PM EST Office Visit [place] [address] Isabela Hayward, [employer] [facility] [place] [address] 11/10/2024 10:00 AM EST Office Visit [place] [phone] Dai Whitman, RESHMA 11/21/2024 2:15 PM EST Office [place] [address] Dayanara Grover MD [facility] [address] documented as of this encounter Visit Diagnoses Not on filedocumented in this encounter Care Teams Group Supervisor Yard Relationship Specialty Start Date End Date None None PCP - General 05/27/24 09/17/24 documented as of this encounter
--- OUTSIDE RECORDS SUMMARY | 2024-10-20 12:49 | XMS_ITS | Encounter Summary ---
Author Organization [facility] [place] [address] Care Team Providers Care Cotton Tier Name Role Phone None Primary Care Provider Unavailabl e Reason for Referral * Home Health Care (Routine) - Authorized Specialty Diagnoses / Procedures Referred By William moses Referred To Contact Diagnoses Critical limb ischemia of left lower extremity María Carranza APRN [facility] [place] [address] [facility] & [address] [place] [address] Referral ID Status Reason Start Date Expiration Date Visits Requested Visits Authorized [id number] Authorized Consult, Test & Treat 08/03/2024 01/30/2025 999 999 Reason for Visit * Auth/Cert (Routine) Specialty Diagnoses / Procedures Referred By William moses Referred To Contact Diagnoses CLTI Procedures PRO BYPASS GRAFT OTHR, FEM-TIBIAL @BYPASS GRAFT, FEM-ANT TIBIAL, -POST TIBIAL, -PERONEAL, -DP W\ SYNTHETIC CONDUIT (WRVU 23.66) Lisette Maldonado MD [facility] [place] [address] [facility] Referral ID Status Reason Start Date Expiration Date Visits Re quested Visits Authorized [id number] 1 1 Encounter Details Date Type Department Care Team (Latest Contact Info) Description 08/01/2024 5:32 AM EDT - 08/03/2024 4:45 PM EDT Hospital Encounter Surgical Unit Level 4 Wing D at [facility] [place] [address] Lisette Maldonado MD [facility] [place] [address] Critical limb ischemia of left lower extremity; [...] the past 12 months has th e [employer], gas, oil, or water [employer] threatened to shut off services in your [...] in a detention (including now)? No 08/02/2024 DH IPV Inpatient [...] and left foot pain who presents to [facility] for left lower extremity bypass Previously from [...] patient has been previously admitted to the [facility] Vascular Surgery service on 05/28 - 06/02 [...] Process Instructions: There is no in-house vascular dock or pier laborer available on weeknights (5pm-8am), weekends, or holidays. IF THIS IS A REQUEST FOR AN EMERGENT STUDY DURING THOSE HOURS, please have the senior provider responsible for the patient page the Vascular Surgery Fellow/Senior Resident carton machine operator to discuss options. Scheduling Instructions: Questions: Graft description/location: s/p BL femoral endarterectomies with illiac stent grafts Indication for study/signs & symptoms: improved patency/flow Question to be answered: improved patency/flow Preferred location?: [facility] Clinics Referral to Home Health [REF34 Custom] As directed Process Instructions: If no progress note charted, please enter Clinical details in comments. Scheduling Instructions: Comments: Please evaluate Lux Dixon Jr. for admission to Home [facility]. [address] [place] [phone] (home) Date of : 1975 Inpatient DOCUMENTATION FOR VNA SERVICES (INCLUDING THOSE PATIENTS WITH MEDICARE COVERAGE REQUIRING HOME VNA SERVICES AND/OR HOSPICE SERVICES) PATIENT'S LOCATION: Lux Dixon Jr. [address] [facility] [id number] (home) Cell: Telephone Information: Lime Burner's Name: self In discussion with the attending physician, it is certified that this patient is under their care and that they, or a Nurse Practitioner, Clinical Nurse specialist or Physician Party Plan Demonstrator who is working directly with them, had [...] SACHIN bandage daily) HOME HEALTH CARE AGENCY: [facility]. [address] [place] [id number] START OF CARE: within 24-48 hours of [...] For any problems or questions please call [phone] For issues on weeknights after 5pm and weekends please call [phone] and ask for the Vascular Fellow carton machine operator. documented in this encounter Discharge Instructions * [...] For any problems or questions please call [phone] For issues on weeknights after 5pm and weekends please call [phone] and ask for the Vascular Fellow carton machine operator. documented in this encounter Medications at Time of Discharge Medication Sig Dispensed Refills Start Date End Date oxyCODONE (Roxicodone) 5 mg tablet Take 1 [...] tablet by mouth daily. 30 tablet 06/03/2024 dulaglutide (Trulicity) 1.5 mg/0.5 mL Pen [...] for 12 days. 24 tablet 08/03/2024 08/15/2024 Lantus Solostar U-100 Insulin 100 unit/mL (3 mL) penIndications:type 2 diabetes mellitus Inject 50 Units subcutaneously daily. Indications: type 2 diabetes mellitus 15 mL 1 07/21/2024 10/10/2024 rivaroxaban (Xarelto) 20 mg tablet Take 1 tablet by mouth daily. 30 tablet 11 07/21/2024 10/10/2024 atorvastatin (Lipitor) 80 mg tablet Take 1 tablet by mouth every evening. 90 tablet 3 06/02/2024 10/10/2024 insulin lispro (humaLOG KwikPen) 100 unit/mL Insulin PenIndications:type 2 diabetes mellitus Inject SQ 3 times daily before meals: 10 unit meal dose plus sliding scale 1:20>140 - see insulin chart for instructions Indications: type 2 diabetes mellitus 15 mL 06/02/2024 10/10/2024 metFORMIN (Glucophage) 500 mg tablet Take 2 tablets by mouth 2 times daily. 120 tablet 06/02/2024 10/10/2024 documented as of this encounter Progress Notes * Dominique Anne, PT - 08/03/2024 11:31 AM EDT Physical Therapy Evaluation Patient profile: Lux Viet Dixon Jr. is a 49 y.o. male admitted on 08/01/[address] Lisette Maldonado MD. Per MD note, Lux Dixon Jr. is a 49 y.o. male with a history of CAD s/p CABG, DM, obesity, NSTEMI, HTN, HLD, depression, tobacco use, substance use and left foot pain who presents to [facility] for left iliofemoral endarterectomy and left femoral [...] 3.51) performed by Thony Garcia MD at [facility] MAIN OR PRO BYPASS GRAFT OTHR, FEM-TIBIAL Left 08/01/2024 @BYPASS GRAFT, FEM-ANT TIBIAL, -POST TIBIAL, -PERONEAL, -DP W\ SYNTHETIC CONDUIT (WRVU 23.66) performed by Lisette Maldonado MD at [facility] MAIN OR PRO CABG, ARTERY-VEIN, SINGLE 01/04/2012 @CABG, VENOUS & ARTERIAL GRAFT;SINGLE VEIN GRAFT performed by INNA TOVAR at [facility] MAIN OR PRO ENDOSCOPY W/VIDEO-ASST VEIN HARVEST, CABG 01/04/2012 ENDOSCOPIC HARVEST VEIN(S) FOR CABG performed by INNA TOVAR at [facility] MAIN OR VS ARTERIOGRAM LOWER EXTREMITY VASCULAR SURGERY 07/20/2024 VS Arteriogram Lower Extremity Vascular Surgery 07/20/2024 Taylor Ruiz MD [facility] INTERVENTIONL RAD Active Non-Hospital Problems Diagnosis [...] ray PT, Doctor of Physical Therapy Pager: [phone] Physical Therapy Inpatient Rehabilitation Department * María Carranza, RECYCLABLE MATERIALS SORTER - 08/03/2024 11:30 AM EDT Vascular Surgery Progress Note Lux Dixon Jr. is a 49 y.o. male with a history of CAD s/p CABG, DM, obesity, NSTEMI, HTN, HLD, depression, tobacco use, substance use and left foot pain who presents to [facility] for left iliofemoral endarterectomy and left femoral [...] Q24H insulin lispro 1-6 Units Subcutaneous Q4H [facility] insulin lispro 0-19 Units Subcutaneous TID WC aspirin EC 81 mg Oral Daily atorvastatin 80 mg Oral QPM losartan 50 mg Oral Daily metoprolol succinate XL 25 mg Oral Daily pantoprazole EC 40 mg Oral Daily protriptyline 10 mg Oral Q8H sodium chloride 0.9 % (flush) 5 mL Intravenous BID acetaminophen 975 mg Oral Q6H [facility] senna-docusate 2 tablet Oral BID insulin glargine (Lantus;Semglee) (100 unit/mL) subcutaneous injection 50 Units Subcutaneous Nightly heparin (porcine) 5,000 Units Subcutaneous Q8H [facility] Operations This Hospitalization 08/01: Left iliofemoral endarterectomy Left femoral to below-knee popliteal artery bypass with 7mm ringed PTFE Interim - HDS, NAEO, pain well controlled, 100% trays, BM PRODUCT AMBASSADOR - WBC 10.7 (11.2), Hgb 12.5 (12), [...] pending PT/OT cory Carranza APRN 08/03/2024 Pager: [phone] * Alicja Montague MD - 08/02/2024 1:29 PM EDT Vascular Surgery Progress Note Patient ID Lux Dixon Jr. is a 49 y.o. male with a history of CAD s/p CABG, DM, obesity, NSTEMI, HTN, HLD, depression, tobacco use, substance use and left foot pain who presents to [facility] for left iliofemoral endarterectomy and left femoral [...] Phase 2 criteria met. Report given to [facility] DAVID Deshpande. * Amy Almaraz RN - [...] and left foot pain who presents to [facility] for left lower extremity bypass S: Lux [...] 3.51) performed by Thony Garcia MD at [facility] MAIN OR PRO CABG, ARTERY-VEIN, SINGLE 01/04/2012 @CABG, VENOUS & ARTERIAL GRAFT;SINGLE VEIN GRAFT performed by INNA TOVAR at [facility] MAIN OR PRO ENDOSCOPY W/VIDEO-ASST VEIN HARVEST, CABG 01/04/2012 ENDOSCOPIC HARVEST VEIN(S) FOR CABG performed by INNA TOVAR at [facility] MAIN OR Social History Socioeconomic History Marital [...] 149 Dorsalis Pedis (Ankle) Artery 83 0.55 [place]ona-Biphasic Posterior Tibial (Ankle) Artery 87 0.57 Monophasic [...] and left foot pain who presents to [facility] for left lower extremity bypass. Will proceed with planned operation. -Consent signed, questions answered -Preop checklist complete Dennis Guzman MD Vascular Fellow PGY7, pager [phone] Associated attestation - Lisette Maldonado MD - [...] - 08/03/2024 2:40 PM EDT Home with [facility] CARE MANAGEMENT FINAL DISCHARGE NOTE Chart reviewed, care reviewed with primary team and at interdisciplinary rounds. Patient is medically ready for discharge to [facility]. Needs for Transition of Care: Plan for discharge is: Agency Referrals & Follow-up Care: Contact information for follow-up [address] [address] Transportation: family or friend will provide Functional status prior to admission: Independent Home Environment: Others in the home: sibling(s), other relative(s). Current Living Arrangements: home/apartment/condo. Accessibility Concerns:2 level home includng basement. Current Functional Ability: Assistive Equipment DME used at home: crutches Patient is insured through: Primary Insurance: [employer] MANAGED MEDICARE Payor: [employer] MEDICARE / Plan: [employer] MANAGED MEDICARE PPO / Product Type: *No [...] where referrals are placed. Provided patient with [facility] Star Quality Rating for Home care hand out. Patient requests referral to : [facility] [employer]. [address] [place] [phone] Expected date of discharge: 08/03. Referral routed to the Bi Data Modeler for matching with agency/vendor and to provide [...] television smartphone Taken 08/01/20242126 Pain Management Interventions: [id number] dosing utilized care clustered pain management plan [...] consult to Social Work Ordered at: 08/01/24 3872 Reason for Consult: Substance / alcohol abuse Reason for Consult? Patient has scored positive for Audit or DAST assessments Reason for Consult Substance / alcohol abuse Additional information Admitted to cocaine use Social Work Response: ASPHALT TILE FLOOR LAYER reviewed chart. DAST score of 3. RECYCLABLE MATERIALS SORTER to see for DAST. However, ASPHALT TILE FLOOR LAYER gave pt Consumer???s Guide for Substance Use Treatment in the [facility]. Pt refuses tx but accepted booklet to read. Follow Up Needed: Nothing further regarding this consult as RECYCLABLE MATERIALS SORTER will see pt due to DAST score. [...] tbd Patient is insured through: Primary Insurance: [employer] MANAGED MEDICARE Payor: [employer] MANAGED MEDICARE / Plan: [employer] MANAGED MEDICARE PPO / Product Type: *No [...] surrogate would be surrogate decision maker per [place] surrogate decision making law. (Only good for 180 days) Any patient receiving care in [place] must abide by [place] law. The hierarchy for surrogate decision making [...] or a conservator appointed in accordance with [facility] 464-A. (j) The guardian of the patient???s [...] homeless or living in a detention (including now)?: No In the past 12 months has the [employer], gas, oil, or water [employer] threatened to shut off services in your [...] Current DME: [employer] Home Address confirmed as: [address] [place] [address] Social & Family Supports: All names listed [...] Guide for Substance Use Treatment in the [facility]. Refuses sub tx but took the booklet to read over Health/Prescription Coverage: Primary Insurance: [employer] MANAGED MEDICARE Payor: [employer] MANAGED MEDICARE / Plan: [employer] MANAGED MEDICARE PPO / Product Type: *No Product type* / Secondary Insurance: N/A ; Prescription Coverage: Yes Pref[place] Pharmacy: [facility] [place] [id number] - [place], [place] - [address] [place] [address] [address] [facility] [address] [id number] - [place], [place] - [address] [address] Status: Patient is a : No Primary [...] the groin area, unrelieved by pain medication. MD aware, ordered lidocaine patches. Scott removed, voided [...] and left foot pain who presents to [facility] for left lowerextremity bypass. Previous admission at [facility] (07/14-07/21). 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 Incision made at the PIP joint space, amputation performed at the transmetatarsal space. Per H&P note 07/14, patient had also been previously admitted to the [facility] Vascular Surgery service on 05/28 - 06/02 [...] of this encounter: 101.6 kg (224 lb). [place] Body Weight (IBW) (kg): 75.45 Wt Readings [...] at bedside. Lux reports a good appetite PRODUCT AMBASSADOR with 3 meals/day. Pt did not provide [...] during previous admission and enjoyed these - policy writer offered to send Glucerna as a lower carbohydrate option pt was agreeable to this(policy writer sent one today for pt to trial). [...] an evening meal which is usually takeout (wood grinder operator or pizza). Drinks up to 18 cans of Mountain Dew/day or 1.5 gallons of milk daily. No data found. Nutrition Focused Physical Exam: Performed . Subcutaneous Fat Loss Orbital region: None present Upper arm region (triceps/biceps): Mild Thoracic and Lumbar regions (ribs, lower back, and maxillary line): None present Lean Muscle Loss Mandaen region (temporalis muscle): Mild Clavicle bone region [...] Incisions CDI. No s/s of hematoma noted. paged for snack coverage insulin. No new [...] Diversional Activities: television smartphone Pain Management Interventions: dwgxfj-fas-[id number] dosing utilized care clustered pain management plan [...] and ADLs]: scott Surveillance [continuous indirect monitoring]: [facility] Patient-specific fall prevention interventions for sensory deficits [...] Maldonado MD - 08/01/2024 8:30 AM EDT [facility] Operative Note Patient Name: Lux Dixon Jr. : [id number] MR#: [id number] Case Date: 08/01/2024 Surgeon: Surgeons and Role: [...] foot pain with ulcers who presents to [facility] for left lower extremity bypass. Procedure Description: [...] proximally and the SFA distally. Theexternal iliac, FIELD ARTILLERY OFFICER and proximal SFA were endarterectomized in the [...] 10/23/2024 1:00 PM EST Appointment XRay at [address] [place] [address] Isabela Hayward RECYCLABLE MATERIALS SORTER [facility] [address] 11/09/2024 1:30 PM EST Office [place] [address] Isabela Hayward APRN [facility] [address] [place] [address] 11/10/2024 10:00 AM EST Office [place] [phone] Dai Whitman, RECYCLABLE MATERIALS SORTER 11/21/2024 2:15 PM EST Office [place] [address] Dayanara Grover MD [facility] [place] [address] Scheduled Referrals Name Type Priority Associated Diagnoses [...] 8:04 AM EDT Bypass Graft Othr, Fem-Tibial ([id number]) 08/01/2024 7:34 AM EDT CLTI POC, GLUCOSE Routine 08/01/2024 6:23 AM EDT BYPASS GRAFT, FEM-ANT TIBIAL, -POST TIBIAL, -PERONEAL, -DP W\ SYNTHETIC CONDUIT Routine 08/01/2024 6:03 AM EDT IMPLANTABLE DEVICES SCAN 08/01/2024 12:00 AM EDT documented in this encounter Results * POC, GLUCOSE (08/03/2024 12:27 PM EDT) [facility] Glucometer, POC 81 65 - 199 mg/dL 08/03/2024 12:27 PM EDT [facility] Comment:Supplemental ranges: <140 mg/dL before meals <180 mg/dL all other times of the day. Blood CAPILLARY BLOOD / Unknown 08/03/2024 12:27 PM EDT 08/03/2024 12:27 PM EDT Lisette Maldonado MD POINT OF CARE TEST ORDERABLES [facility] [place] [address] * POC, GLUCOSE (08/03/2024 8:06 AM EDT) Glucometer, POC 137 65 - 199 mg/dL 08/03/2024 8:06 AM EDT [facility] Comment:Supplemental ranges: <140 mg/dL before meals <180 mg/dL all other times of the day. Blood CAPILLARY BLOOD / Unknown 08/03/2024 8:06 AM EDT 08/03/2024 8:06 AM EDT Lisette Maldonado MD POINT OF CARE TEST ORDERABLES Performing Organization Address City/Special Care Hospital/ZIP Co de Phone Number [facility] [place] [address] * Phosphorus (08/03/2024 4:41 AM EDT) Phosphorus 3.4 2.5 - 4.5 mg/dL 08/03/2024 5:22 AM EDT [facility] Blood VENOUS BLOOD SPECIMEN / Unknown IP Care Team Draw / Unknown 08/03/2024 4:41 AM EDT 08/03/2024 4:51 AM EDT Lisette Maldonado MD CHEMISTRY ORDERABL ES [facility] [place] [address] * Magnesium (08/03/2024 4:41 AM EDT) Magnesium 0.81 0.69 - 1.07 mMol/L 08/03/2024 5:22 AM EDT [facility] Blood VENOUS BLOOD SPECIMEN / Unknown IP Care Team Draw / Unknown 08/03/2024 4:41 AM EDT 08/03/2024 4:51 AM EDT Lisette Maldonado MD CHEMISTRY ORDERABL ES [facility] [place] [address] * (ABNORMAL) Basic Metabolic Panel (08/03/2024 4:41 AM EDT) Glucose 179 65 - 199 mg/dL 08/03/2024 6:51 AM EDT [facility] Comment:Glucose Concentratio n >=200 mg/dL plus symptoms is consistent with Diabetes Mellitus. Blood Urea Nitrogen 10 10 - 20 mg/dL 08/03/2024 6:[facility] Creatinine 0.50(L) 0.80 - 1.50 mg/dL 08/03/2024 6:51 AM [facility] Sodium 135 135 - 145 mMol/L 08/03/2024 6:51 AM [facility] Potassium 3.9 3.5 - 5.0 mMol/L 08/03/2024 6:51 AM [facility] Chloride 100 98 - 107 mMol/L 08/03/2024 6:51 AM [facility] Carbon Dioxide 26 22 - 31 mMol/L 08/03/2024 6:51 [facility] Anion Gap 9 5 - 15 mMol/L 08/03/2024 6:51 AM [facility] Calcium 9.6 8.5 - 10.5 mg/dL 08/03/2024 6:51 AM [facility] Est Glomerular Filtration Rate - Male 124 mL/min/1. 73 m?? 08/03/2024 6:51 AM [facility] Comment: This patient's estimated GFR [...] EDT Lisette Maldonado MD CHEMISTRY ORDERABL ES [facility] [place] [address] * (ABNORMAL) CBC (with Diff) (08/03/2024 4:41 AM EDT) White Blood Cell 10.74(H) 4.00 - 9.50 x10(3)/mc L 08/03/2024 4:57 AM [facility] Red Blood Cell 4.23(L) 4.58 - 5.54 x10(6)/mc L 08/03/2024 4:57 AM [facility] Hemoglobin 12.5(L) 13.7 - 16.5 g/dL 08/03/2024 4:57 AM [facility] Hematocrit 38.5(L) 40.5 - 48.5 % 08/03/2024 4:57 AM [facility] Mean Cell Volume 91.0 82.9 - 93.1 fL 08/03/2024 4:57 AM [facility] Mean Cell Hemoglobin 29.6 27.5 - 32.1 pg 08/03/2024 4:57 AM [facility] Mean Cell Hemoglobin Concentration 32.5 32.0 - 35.7 g/dL 08/03/2024 4:57 AM [facility] Platelet 309 145 - 357 x10(3)/mc L 08/03/2024 4:57 AM [facility] Mean Platelet Volume 9.7 7.6 - 12.9 fL 08/03/2024 4:57 AM [facility] RDW Standard Deviation 44.0 36.0 - 45.0 fL 08/03/2024 4:57 AM [facility] RDW coefficient of variation 13.3 11.4 - 13.8 % 08/03/2024 4:57 AM [facility] NRBC% auto 0.0 % 08/03/2024 4:57 AM [facility] NRBC Absolute <0.01 <0.01 x10(3)/mc L 08/03/2024 4:57 AM [facility] Neutrophil % 71.7 % 08/03/2024 4:57 AM [facility] Neutrophil Absolute (ANC) - Automated 7.71(H) 1.70 - 6.10 x10(3)/mc L 08/03/2024 4:57 AM [facility] Lymph % 18.5 % 08/03/2024 4:57 AM [facility] Lymph Absolute 1.99 0.90 - 3.20 x10(3)/mc L 08/03/2024 4:57 AM [facility] Monocyte % 7.2 % 08/03/2024 4:57 AM [facility] Monocyte Absolute 0.77 0.30 - 0.90 x10(3)/mc L 08/03/2024 4:57 AM [facility] Eos % 1.5 % 08/03/2024 4:57 AM [facility] Eos Absolute 0.16 0.00 - 0.40 x10(3)/mc L 08/03/2024 4:57 AM [facility] Basophil % 0.6 % 08/03/2024 4:57 AM [facility] Baso Absolute 0.06 0.00 - 0.10 x10(3)/mc L 08/03/2024 4:57 AM EDT [facility] Immature Gran % 0.5 % 4:57 AM EDT [facility] Immature Gran Absolute 0.05(H) 0.00 - 0.04 x10(3)/mc L 08/03/2024 4:57 AM EDT [facility] Blood VENOUS BLOOD SPECIMEN / Unknown IP Care Team Draw / Unknown 08/03/2024 4:41 AM EDT 08/03/2024 4:51 AM EDT Lisette Maldonado MD HEMATOLOGY ORDERAB LES [facility] [place] [address] * (ABNORMAL) POC, GLUCOSE (08/03/2024 3:58 AM EDT) Glucometer, POC 200(H) 65 - 199 mg/dL 08/03/2024 3:58 AM EDT [facility] Comment:Supplemental ranges: <140 mg/dL before meals <180 mg/dL all other times of the day. Blood CAPILLARY BLOOD / Unknown 08/03/2024 3:58 AM EDT 08/03/2024 3:58 AM EDT Lisette Maldonado MD POINT OF CARE TEST ORDERABLES [facility] [place] [address] * POC, GLUCOSE (08/02/2024 11:06 PM EDT) Glucometer, POC 194 65 - 199 mg/dL 08/02/2024 11:07 PM EDT [facility] Comment:Supplemental ranges: <140 mg/dL before meals <180 mg/dL all other times of the day. Blood CAPILLARY BLOOD / Unknown 08/02/2024 11:06 PM EDT 08/02/2024 11:07 PM EDT Lisette Maldonado MD POINT OF CARE TEST ORDERABLES [facility] [place] [address] * (ABNORMAL) POC, GLUCOSE (08/02/2024 7:46 PM EDT) Glucometer, POC 226(H) 65 - 199 mg/dL 08/02/2024 7:46 PM EDT [facility] Comment:Supplemental ranges: <140 mg/dL before meals <180 mg/dL all other times of the day. Blood CAPILLARY BLOOD / Unknown 08/02/2024 7:46 PM EDT 08/02/2024 7:46 PM EDT Lisette Maldonado MD POINT OF CARE TEST ORDERABLES Performing Organization Address City/[facility] Care Hospital/ZIP Co de Phone Number [facility] [place] [address] * (ABNORMAL) POC, GLUCOSE (08/02/2024 5:17 PM EDT) Glucometer, POC 236(H) 65 - 199 mg/dL 08/02/2024 5:17 PM EDT [facility] Comment:Supplemental ranges: <140 mg/dL before meals <180 mg/dL all other times of the day. Blood CAPILLARY BLOOD / Unknown 08/02/2024 5:17 PM EDT 08/02/2024 5:17 PM EDT Lisette Maldonado MD POINT OF CARE TEST ORDERABLES [facility] [place] [address] * (ABNORMAL) POC, GLUCOSE (08/02/2024 12:44 PM EDT) Glucometer, POC 228(H) 65 - 199 mg/dL 08/02/2024 12:45 PM EDT [facility] Comment:Supplemental ranges: <140 mg/dL before meals <180 mg/dL all other times of the day. Blood CAPILLARY BLOOD / Unknown 08/02/2024 12:44 PM EDT 08/02/2024 12:45 PM EDT Lisette Maldonado MD POINT OF CARE TEST ORDERABLES Performing Organization Address City/[facility]/ZIP Co de Phone Number [facility] [place] [address] * POC, GLUCOSE (08/02/2024 7:43 AM EDT) Glucometer, POC 160 65 - 199 mg/dL 08/02/2024 7:43 AM EDT [facility] Comment:Supplemental ranges: <140 mg/dL before meals <180 mg/dL all other times of the day. Blood CAPILLARY BLOOD / Unknown 08/02/2024 7:43 AM EDT 08/02/2024 7:43 AM EDT Lisette Maldonado MD POINT OF CARE TEST ORDERABLES Performing Organization Address [facility]/ZIP Co de Phone Number [facility] [place] [address] * Phosphorus (08/02/2024 3:49 AM EDT) Phosphorus 3.3 2.5 - 4.5 mg/dL 08/02/2024 4:53 AM EDT [facility] Blood VENOUS BLOOD SPECIMEN / Unknown IP Care Team Draw / Unknown 08/02/2024 3:49 AM EDT 08/02/2024 4:24 AM EDT Lisette Maldonado MD CHEMISTRY ORDERABL ES Performing Organization Address City/[facility]/ZIP Co de Phone Number [facility] [place] [address] * Magnesium (08/02/2024 3:49 AM EDT) Magnesium 0.72 0.69 - 1.07 mMol/L 08/02/2024 6:53 AM EDT [facility] Blood VENOUS BLOOD SPECIMEN / Unknown IP Care Team Draw / Unknown 08/02/2024 3:49 AM EDT 08/02/2024 4:24 AM EDT Lisette Maldonado MD CHEMISTRY ORDERABL ES [facility] [place] [address] * (ABNORMAL) Basic Metabolic Panel (08/02/2024 3:49 AM EDT) Pathologist [facility] Glucose 136 65 - 199 mg/dL 08/02/2024 4:53 AM EDT [facility] Comment:Glucose Concentratio n >=200 mg/dL plus symptoms is consistent with Diabetes Mellitus. Blood Urea Nitrogen 11 10 - 20 mg/dL 08/02/2024 4:53 AM EDT [facility] Creatinine 0.56(L) 0.80 - 1.50 mg/dL 08/02/2024 4:53 AM [facility] Sodium 138 135 - 145 mMol/L 08/02/2024 4:53 AM [facility] Potassium 3.7 3.5 - 5.0 mMol/L 08/02/2024 4:53 AM [facility] Chloride 102 98 - 107 mMol/L 08/02/2024 4:[facility] Carbon Dioxide 24 22 - 31 mMol/L 08/02/2024 4:[facility] Anion Gap 12 5 - 15 mMol/L 08/02/2024 4:53 AM [facility] Calcium 9.0 8.5 - 10.5 mg/dL 08/02/2024 4:53 AM [facility] Est Glomerular Filtration Rate - Male 120 mL/min/1. 73 m?? 08/02/2024 4:53 AM EDT [facility] Comment: This patient's estimated [...] EDT Lisette Maldonado MD CHEMISTRY ORDERABL ES [facility] [place] [address] * (ABNORMAL) CBC (with Diff) (08/02/2024 3:49 AM EDT) White Blood Cell 11.20(H) 4.00 - 9.50 x10(3)/mc L 08/02/2024 4:30 AM EDT [facility] Red Blood Cell 4.14(L) 4.58 - 5.54 x10(6)/mc L 08/02/2024 4:30 AM EDT [facility] Hemoglobin 12.0(L) 13.7 - 16.5 g/dL 08/02/2024 4:30 AM EDT [facility] Hematocrit 37.7(L) 40.5 - 48.5 % 08/02/2024 4:30 AM EDT [facility] Mean Cell Volume 91.1 82.9 - 93.1 fL 08/02/2024 4:30 AM EDT [facility] Mean Cell Hemoglobin 29.0 27.5 - 32.1 pg 08/02/2024 4:30 AM EDT [facility] Mean Cell Hemoglobin Concentration 31.8(L) 32.0 - 35.7 g/dL 08/02/2024 4:30 AM [facility] Platelet 330 145 - 357 x10(3)/mc L 08/02/2024 4:30 AM [facility] Mean Platelet Volume 10.1 7.6 - 12.9 fL 08/02/2024 4:30 AM [facility] RDW Standard Deviation 44.7 36.0 - 45.0 fL 08/02/2024 4:30 AM [facility] RDW coefficient of variation 13.4 11.4 - 13.8 % 08/02/2024 4:30 AM [facility] NRBC% auto 0.0 % 08/02/2024 4:30 AM [facility] NRBC Absolute <0.01 <0.01 x10(3)/mc L 08/02/2024 4:30 AM [facility] Neutrophil % 71.9 % 08/02/2024 4:30 AM [facility] Neutrophil Absolute (ANC) - Automated 8.04(H) 1.70 - 6.10 x10(3)/mc L 08/02/2024 4:30 AM [facility] Lymph % 19.7 % 08/02/2024 4:30 AM [facility] Lymph Absolute 2.21 0.90 - 3.20 x10(3)/mc L 08/02/2024 4:30 AM [facility] Monocyte % 5.7 % 08/02/2024 4:30 AM [facility] Monocyte Absolute 0.64 0.30 - 0.90 x10(3)/mc L 08/02/2024 4:30 AM [facility] Eos % 1.6 % 08/02/2024 4:30 AM [facility] Eos Absolute 0.18 0.00 - 0.40 x10(3)/mc L 08/02/2024 4:30 AM EDT [facility] Basophil % 0.7 % 08/02/2024 4:30 AM EDT [facility] Baso Absolute 0.08 0.00 - 0.10 x10(3)/mc L 08/02/2024 4:30 AM EDT [facility] Immature Gran % 0.4 % 4:30 AM EDT [facility] Immature Gran Absolute 0.05(H) 0.00 - 0.04 x10(3)/mc L 08/02/2024 4:30 AM EDT [facility] Blood VENOUS BLOOD SPECIMEN / Unknown IP Care Team Draw / Unknown 08/02/2024 3:49 AM EDT 08/02/2024 4:24 AM EDT Lisette Maldonado MD HEMATOLOGY ORDERAB LES Performing Organization Address City/[facility]/ZIP Co de Phone Number [facility] [place] [address] * POC, GLUCOSE (08/02/2024 3:08 AM EDT) Glucometer, POC 151 65 - 199 mg/dL 08/02/2024 3:08 AM EDT [facility] Comment:Supplemental ranges: <140 mg/dL before meals <180 mg/dL all other times of the day. Blood CAPILLARY BLOOD / Unknown 08/02/2024 3:08 AM EDT 08/02/2024 3:08 AM EDT Lisette Maldonado MD POINT OF CARE TEST ORDERABLES [facility] [place] [address] * POC, GLUCOSE (08/02/2024 12:07 AM EDT) Glucometer, POC 121 65 - 199 mg/dL 08/02/2024 12:07 AM EDT [facility] Comment:Supplemental ranges: <140 mg/dL before meals <180 mg/dL all other times of the day. Blood CAPILLARY BLOOD / Unknown 08/02/2024 12:07 AM EDT 08/02/2024 12:08 AM EDT Lisette Maldonado MD POINT OF CARE TEST ORDERABLES Performing Organization Address City/[facility]/ZIP Co de Phone Number [facility] [place] [address] * (ABNORMAL) POC, GLUCOSE (08/01/2024 7:52 PM EDT) Glucometer, POC 234(H) 65 - 199 mg/dL 08/01/2024 7:52 PM EDT [facility] Comment:Supplemental ranges: <140 mg/dL before meals <180 mg/dL all other times of the day. Blood CAPILLARY BLOOD / Unknown 08/01/2024 7:52 PM EDT 08/01/2024 7:52 PM EDT Lisette Maldonado MD POINT OF CARE TEST ORDERABLES Performing Organization Address City/[facility]/ZIP Co de Phone Number [facility] [place] [address] * POC, GLUCOSE (08/01/2024 4:28 PM EDT) Glucometer, POC 144 65 - 199 mg/dL 08/01/2024 4:30 PM EDT [facility] Comment:Supplemental ranges: <140 mg/dL before meals <180 mg/dL all other times of the day. Blood CAPILLARY BLOOD / Unknown 08/01/2024 4:28 PM EDT 08/01/2024 4:30 PM EDT Lisette Maldonado MD POINT OF CARE TEST ORDERABLES [facility] [place] [address] * (ABNORMAL) POC, GLUCOSE (08/01/2024 11:26 AM EDT) Glucometer, POC 208(H) 65 - 199 mg/dL 08/01/2024 11:26 AM EDT [facility] Comment:Supplemental ranges: <140 mg/dL before meals <180 mg/dL all other times of the day. Blood CAPILLARY BLOOD / Unknown 08/01/2024 11:26 AM EDT 08/01/2024 11:26 AM EDT Lisette Maldonado MD POINT OF CARE TEST ORDERABLES Performing Organization Address City/[facility]/ZIP Co de Phone Number [facility] [place] [address] * POC, GLUCOSE (08/01/2024 10:17 AM EDT) Glucometer, POC 82 65 - 199 mg/dL 08/01/2024 10:18 AM EDT [facility] Comment:Supplemental ranges: <140 mg/dL before meals <180 mg/dL all other times of the day. Blood CAPILLARY BLOOD / Unknown 08/01/2024 10:17 AM EDT 08/01/2024 10:18 AM EDT Lisette Maldonado MD POINT OF CARE TEST ORDERABLES [facility] [place] [address] * (ABNORMAL) Blood Gas, Arterial POC (08/01/2024 8:04 AM EDT) pH, Arterial 7.36 7.35 - 7.45 08/01/2024 9:26 AM EDT [facility] PCO2, Arterial 43 35 - 45 mmHg 08/01/2024 9:26 AM EDT [facility] PO2, Arterial 211(H) 85 - 104 mmHg 08/01/2024 9:26 AM EDT [facility] Bicarbonate, Arterial 23.5 20.0 - 26.0 mmol/L 08/01/2024 9:26 AM [facility] Base Excess, Arterial -2.1 -3.0 - 3.0 mmol/L 08/01/2024 9:26 AM [facility] Hemoglobin, Arterial 12.9(L) 13.7 - 16.5 g/dL 08/01/2024 9:26 AM [facility] Oxyhemoglobin, Arterial 96.6 94.0 - 97.0 % 08/01/2024 9:26 AM [facility] Carboxyhemoglobin , Arterial 2.3 % 08/01/2024 9:26 AM [facility] Comment: Nonsmokers: 0.5-1.5% COHB ?? Smokers: Variable ??but usually less than 10% ?? Toxic: 20-30% COHB ?? Lethal: Greater than 60% COHB Methemoglobin, Arterial 0.2 <=1.5 % 08/01/2024 9:26 AM [facility] Sodium, Arterial 137 135 - 145 mmol/L 08/01/2024 9:26 AM [facility] Potassium, Arterial 3.8 3.5 - 5.0 mmol/L 08/01/2024 9:26 AM [facility] Chloride, Arterial 105 98 - 107 mmol/L 08/01/2024 9:26 AM [facility] Lactate, Arterial 2.1 0.5 - 2.2 mmol/L 08/01/2024 9:26 AM [facility] IONIZED CALCIUM, ARTERIAL 1.15 1.15 - 1.33 mmol/L 08/01/2024 9:26 AM [facility] Glucose, Arterial 164 65 - 199 mg/dL 08/01/2024 9:26 AM [facility] Comment:Glucose Concentratio n >=200 mg/dL plus symptoms is consistent with Diabetes Mellitus. Blood ARTERIAL BLOOD / Unknown 08/01/2024 8:04 AM EDT 08/01/2024 9:26 AM EDT Lisette Maldonado MD POINT OF CARE TEST ORDERABLES [facility] [place] [address] * (ABNORMAL) POC, GLUCOSE (08/01/2024 6:23 AM EDT) Glucometer, POC 208(H) 65 - 199 mg/dL 08/01/2024 6:24 AM EDT [facility] Comment:Supplemental ranges: <140 mg/dL before meals <180 mg/dL all other times of the day. Blood CAPILLARY BLOOD / Unknown 08/01/2024 6:23 AM EDT 08/01/2024 6:25 AM EDT Lisette Maldonado MD POINT OF CARE TEST ORDERABLES Performing Organization Address City/[facility] Co de Phone Number [facility] [place] [address] * Scan Doc: Implantable Devices (08/01/2024 12:00 [...] PRN, Starting on Wed08/01/24 at 1359, Until Angeilta 08/03/24 at 1845, Constipation, Give if no [...] Jeramy Escobar RN)1450 (Given - Provider: Jeramy Escobar, DAVID)2011 (Given - Provider: Lauren Zavala RN) 0308 (Given - Provider: Lauren Zavala RN)0822 (Given - Provider: Jeramy Escobar RN)1518 (Given - Provider: Jeramy Escobar RN) aspirin EC tablet 81 mg 81 mg, Oral, DAILY, First dose on Wed08/01/24 at 1415, Until Discontinued, Routine 1438 (Given - Provider: Jeramy Escobar RN) 0826 (Given - Provider: Jeramy Escobar, DAVID) 0822 (Given - Provider: Jeramy Escobar RN) [...] Routine 1437 (Given - Provider: Jeramy Escobar RN)2113 (Given - Provider: Isabel Smart RN) 0551 (Given - Provider: Lauren Zavala, DAVID)1450 (Given - Provider: Jeramy Escobar RN)2209 (Given - Provider: Lauren Zavala, DAVID) 0555 (Given - Provider: Lauren Zavala, DAVID) insulin glargine-ygfn (Semglee) (100 unit/mL) subcutaneous injection vial 50 Units 50 Units, Subcutaneous, NIGHTLY, First dose on Wed08/01/24 at 2100, Until Discontinued, Routine 2106 (Given - Provider: Lauren Zavala, DAVID) 2010 (Given - Provider: Lauren Zavala, RN) [...] than 240 mg/dL in 2 hours., Routine 1638 (Given - Provider: Jeramy Escobar RN)2059 (Given - Provider: Lauren Zavala RN) insulin [...] Jeramy Escobar, DAVID)1718 (Given - Provider: Jeramy Escobar RN) insulin [...] 1445 1446 (New Bag - Provider: Jeramy Escobar, DAVID)1846 (Stopped - Provider: Jeramy Escobar RN) lidocaine [...] Escobar RN) 0823 (Given - Provider: Jeramy Escobar, DAVID) metoprolol succinate XL (Toprol-XL) tablet 25 [...] Unit), Routine 1446 (Given - Provider: Jeramy Escobar RN)2113 (Given - Provider: Isabel Smart RN) 0900 (Not Given - Provider: Jeramy Escobar RN - Reason: Contraindicated)2018 (Given - Provider: Lauren Zavala RN) 0822 (Given - Provider: Jeramy Escobar RN) Continuous [...] at 1359, Until Angelita 08/03/24 at 1845, for discomfort with PIV insertion, [...] route first line., Recovery (Recovery-Hospital Unit), Routine 1330 (Given - Provider: Shannon Haney RN)2126 (Given - Provider: Lauren Zavala RN) 301 (Given - Provider: Lauren Zavala RN)08 (Given - Provider: Jeramy Escobar RN)123 (Given - Provider: Jeramy Escobar RN)2011 (Given - Provider: Lauren Zavala RN) 307 (Given - Provider: Lauren Zavala RN)0822 (Given - Provider: Jeramy Escobar RN) oxyCODONE (Roxicodone) tablet 5 mg(Linked Group 4) 5 mg, Oral, EVERY 4 HOURS PRN, Starting on Wed08/01/24 at 1328, Until Angelita 08/03/24 at 1845, Pain, moderate pain (4-6), For adults, may give in place of other agent(s) ordered for pain (7-10) at patient request. If multiple routes of administration ordered, oral route first line., Recovery (Recovery-Hospital Unit), Routine 1330 (See Alternative - Provider: Shannon Haney RN)2126 (See Alternative - Provider: Lauren Zavala RN) 301 (See Alternative - Provider: Lauren Zavala RN)08 (See Alternative - Provider: Jeramy Escobar, DAVID)123 (See Alternative - Provider: Jeramy Escobar RN)2011 (See Alternative - Provider: Lauren Zavala RN) 030 (See Alternative - Provider: Lauren Zavala RN)0822 [...] Unit), Routine 1437 (Given - Provider: Jeramy Escobar, DAVID)2242 (Given - Provider: Lauren Zavala, DAVID) 0551 (Given - Provider: Lauren Zavala, RN)1450 (Given - Provider: Jeramy Escobar, DAVID)2211 (Given - Provider: Lauren Zavala, DAVID) 0555 (Given - Provider: Lauren Zavala RN) [...] 4 HOURS, First occurrence on Wed08/02/24 at 2000, Until Specified, Consider choosing EVERY 4 HOURS [...] Routine documented in this encounter Care Teams Cotton Tier Relationship Specialty Start Date End Date None None PCP - General 05/27/24 09/17/24 documented as of this encounter
--- OUTSIDE RECORDS SUMMARY | 2024-10-20 12:50 | XMS_ITS | Encounter Summary ---
Author Organization [facility] [place] [address] Care Team Providers Care Cemetery Keeper Name Role Phone Charles Romero Primary Care [...] Info) Description 07/27/2024 Telephone [place] [phone] Lisette Maldonado MD [facility] [place] [address] Peer To Peer (Per 5 day protocol [...] drink = 0.6 oz pur e alcohol) [facility] Utilities Answer Date Recorded In the past 12 months has [employer], gas, oil, or water company threatened [...] any time in the past 12 m [facility], were you homeless or living in a half-way (including now)? No 09/27/2024 IPV Inpatient Questions [...] 10/23/2024 1:00 PM EST Appointment XRay at [address] [place] [address] Isabela Hayward, [facility] [place] [address] 11/09/2024 1:30 PM EST Office Visit Infectious Disease at [place] [phone] Isabela Hayward, [facility] [place] [address] 11/10/2024 10:00 AM EST Office [place] [phone] Dai Whitman APRN 11/21/2024 2:15 PM EST Office Visit Endocrinology at [place] [phone] Dayanara Grover MD [facility] [place] [address] documented as of this encounter Visit Diagnoses Not on filedocumented in this encounter Care Teams Cemetery Keeper Relationship Specialty Start Date End Date Charles Romero [place] [place] [address] PCP - General Internal Medicine 09/18/24 documented as of this encounter
--- OUTSIDE RECORDS SUMMARY | 2024-10-20 12:50 | XMS_ITS | Encounter Summary ---
Author Organization Formerly [facility] [place] [address] Care Team Providers Care Upsetter Name Role Phone None Primary Care Provider Unavailabl e Reason for Visit * Auth/Cert (Routine) Specialty Diagnoses / Procedures Referred By William t Referred To Contact Diagnoses CLTI Procedures PRO BYPASS GRAFT OTHR, FEM-TIBIAL @BYPASS GRAFT, FEM-ANT TIBIAL, -POST TIBIAL, -PERONEAL, -DP W\ SYNTHETIC CONDUIT (WRVU 23.66) Lisette Maldonado MD [facility] [place] [address] [facility] Referral ID Status Reason Start Date Expiration Date Visits Re quested Visits Authorized [id number] 1 1 Encounter Details Date Type Department Care Team (Late st Contact Info) Description 08/01/2024 7:30 AM EDT - 08/01/2024 1:43 PM EDT Surgery [place] [address] Lisette Maldonado MD [facility] [place] [address] @BYPASS GRAFT, FEM-ANT TIBIAL, -POST TIBIAL, -PERONEAL, [...] = 0.6 oz pur e alcohol) [facility] Utilities Answer Date Recorded In [...] included. Inpatient - Discharge Summary Patient Name: Lxu Dixon Jr. Patient Age: 49 y.o. Birthdate: [...] and left foot pain who presents to [facility] for left lower extremity [...] patient has been previously admitted to the [facility] Vascular Surgery service on [...] Process Instructions: There is no in-house vascular labor delivery rn available on weeknights (5pm-8am), weekends, or holidays. IF THIS IS A REQUEST FOR AN EMERGENT STUDY DURING THOSE HOURS, please have the senior provider responsible for the patient page the Vascular Surgery Fellow/Senior Resident health information assistant to discuss options. Scheduling Instructions: Questions: Graft description/location: s/p BL femoral endarterectomies with illiac stent grafts Indication for study/signs & symptoms: improved patency/flow Question to be answered: improved patency/flow Preferred location?: [facility] Clinics Referral to Home Health [[id number] Custom] As directed Process Instructions: If no progress note charted, please enter Clinical details in comments. Scheduling Instructions: Comments: Please evaluate uLx Dixon Jr. for admission to Home Health. [address] [place] [id number] (home) Date of : 1975 Inpatient DOCUMENTATION FOR VNA SERVICES (INCLUDING THOSE PATIENTS WITH MEDICARE COVERAGE REQUIRING HOME VNA SERVICES AND/OR HOSPICE SERVICES) PATIENT'S LOCATION: Lux Dixon Jr. [address] [facility] [address] (home) Cell: Telephone Information: Salt Manager's Name: self In discussion with the attending physician, it is certified that this patient is under their care and that they, or a Nurse Practitioner, Clinical Nurse specialist or Physician Computer Numeric Control Setter who is working directly with them, had [...] SACHIN bandage daily) HOME HEALTH CARE AGENCY: [facility] [address] [place] [id number] START OF CARE: within 24-48 hours of [...] For any problems or questions please call [phone] For issues on weeknights after 5pm and weekends please call [phone] and ask for the Vascular Fellow health information assistant. documented in this encounter Discharge Instructions * [...] For any problems or questions please call [phone] For issues on weeknights after 5pm and weekends please call [phone] and ask for the Vascular Fellow health information assistant. documented in this encounter Medications at Time [...] and left foot pain who presents to [facility] for left iliofemoral endarterectomy [...] 3.51) performed by Thony Garcia MD at [facility] MAIN OR PRO BYPASS GRAFT OTHR, FEM-TIBIAL Left 08/01/2024 @BYPASS GRAFT, FEM-ANT TIBIAL, -POST TIBIAL, -PERONEAL, -DP W\ SYNTHETIC CONDUIT (WRVU 23.66) performed by Lisette Maldonado MD at [facility] MAIN OR PRO CABG, ARTERY-VEIN, SINGLE 01/04/2012 @CABG, VENOUS & ARTERIAL GRAFT;SINGLE VEIN GRAFT performed by INNA TOVAR at [facility] MAIN OR PRO ENDOSCOPY W/VIDEO-ASST VEIN HARVEST, CABG 01/04/2012 ENDOSCOPIC HARVEST VEIN(S) FOR CABG performed by INNA TOVAR at [facility] MAIN OR VS ARTERIOGRAM LOWER EXTREMITY VASCULAR SURGERY 07/20/2024 VS Arteriogram Lower Extremity Vascular Surgery 07/20/2024 Taylor Ruiz MD [facility] INTERVENTIONL RAD Active Non-Hospital Problems Diagnosis [...] ray PT, Doctor of Physical Therapy Pager: [phone] Physical Therapy Inpatient Rehabilitation Department * María Carranza, PC INSTALLATION ENGINEER - 08/03/2024 11:30 AM EDT Vascular Surgery Progress Note Lux Dixon Jr. is a 49 y.o. male with a history of CAD s/p CABG, DM, obesity, NSTEMI, HTN, HLD, depression, tobacco use, substance use and left foot pain who presents to [facility] for left iliofemoral endarterectomy [...] Intravenous BID acetaminophen 975 mg Oral Q6H JOSE senna-docusate 2 tablet Oral BID insulin glargine (Lantus;Semglee) (100 unit/mL) subcutaneous injection 50 Units Subcutaneous Nightly heparin (porcine) 5,000 Units Subcutaneous Q8H [facility] Operations This Hospitalization 08/01: Left iliofemoral endarterectomy Left femoral to below-knee popliteal artery bypass with 7mm ringed PTFE Interim - HDS, NAEO, pain well controlled, 100% trays, BM 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 is a 49 y.o. male with a history of CAD s/p CABG, DM, obesity, NSTEMI, HTN, HLD, depression, tobacco use, substance use and left foot pain who presents to [facility] for left iliofemoral endarterectomy [...] 0.56* 0.55* 0.53* Assessment & Plan Lux Viet Dixon Jr. is a 49 [...] and left foot pain who presents to [facility] for left lower extremity [...] 3.51) performed by Thony Garcia MD at [facility] MAIN OR PRO CABG, ARTERY-VEIN, SINGLE 01/04/2012 @CABG, VENOUS & ARTERIAL GRAFT;SINGLE VEIN GRAFT performed by INNA TOVAR at [facility] MAIN OR PRO ENDOSCOPY W/VIDEO-ASST VEIN HARVEST, CABG 01/04/2012 ENDOSCOPIC HARVEST VEIN(S) FOR CABG performed by INNA TOVAR at [facility] MAIN OR Social History Socioeconomic History [...] 149 Dorsalis Pedis (Ankle) Artery 83 0.55 [place]-Biphasic Posterior Tibial (Ankle) Artery 87 0.57 Monophasic [...] and left foot pain who presents to [facility] for left lower extremity bypass. Will proceed with planned operation. -Consent signed, questions answered -Preop checklist complete Dennis Guzman MD Vascular Fellow PGY7, pager [phone] Associated attestation - Lisette Maldonado MD - [...] - 08/03/2024 2:40 PM EDT Home with [facility] CARE MANAGEMENT FINAL DISCHARGE NOTE Chart reviewed, care reviewed with primary team and at interdisciplinary rounds. [facility] Needs for Transition of Care: Plan for discharge is: Agency Referrals & Follow-up Care: Contact information for follow-up [place] [id number] Transportation: family or friend will provide Functional status prior to admission: Independent Home Environment: Others in the home: sibling(s), other relative(s). Current Living Arrangements: home/apartment/condo. Accessibility Concerns:2 level home includng basement. Current Functional Ability: Assistive Equipment DME used at home: crutches Patient is insured through: Primary Insurance: [employer] MANAGED MEDICARE Payor: [employer] MANAGED MEDICARE / Plan: [employer] MANAGED MEDICARE PPO / Product Type: *No [...] where referrals are placed. Provided patient with [facility] Star Quality Rating for Home care hand out. Patient requests referral to : [facility] [address] [place] [address] Expected date of discharge: 08/03. Referral routed to the Beauty Shop Manager for matching with agency/vendor and to provide [...] television smartphone Taken 08/01/20242126 Pain Management Interventions: pzherr-rab-ugwle dosing utilized care clustered pain management plan [...] consult to Social Work Ordered at: 08/01/24 6487 Reason for Consult: Substance / alcohol abuse Reason for Consult? Patient has scored positive for Audit or DAST assessments Reason for Consult Substance / alcohol abuse Additional information Admitted to cocaine use Social Work Response: PHYSICAL FITNESS TEACHER reviewed chart. DAST score of 3. PC INSTALLATION ENGINEER to see for DAST. However, PHYSICAL FITNESS TEACHER gave pt Consumer???s Guide for Substance Use Treatment in the [facility]. Pt refuses tx but accepted booklet to read. Follow Up Needed: Nothing further regarding this consult as PC INSTALLATION ENGINEER will see pt due to DAST score. [...] tbd Patient is insured through: Primary Insurance: [employer] MANAGED MEDICARE Payor: [employer] MANAGED MEDICARE / Plan: [employer] MANAGED MEDICARE [...] nurse, medical record, and Patient, Chart Review PHYSICAL FITNESS TEACHER Introduced self/reviewed role; services accepted. Admitted From: Home Reason for Hospitalization: Leg pain Past medical History: Past Medical History: Diagnosis Date Depression Hyperlipidemia Hypertension Narcolepsy Obesity Hospitalizations Within the Past 30 Days: planned readmission Current Decision-Making Capacity: Self If AD's have not been completed the following surrogate would be surrogate decision maker per [place] surrogate decision making law. (Only good for 180 days) Any patient receiving care in [place] must abide by [place] law. The hierarchy for surrogate decision making [...] (i) The agent with financial power of deputy prosecuting attorney or a conservator appointed in [...] Current DME: [facility] Home Address confirmed as: [address] [place] [id number] Social & Family Supports: All names listed [...] Guide for Substance Use Treatment in the [facility]. Refuses sub tx but took the booklet to read over Health/Prescription Coverage: Primary Insurance: [employer] MEDICARE Payor: [employer] MANAGED MEDICARE / Plan: [facility] MANAGED MEDICARE PPO / Product Type: *No Product type* / Secondary Insurance: N/A ; Prescription Coverage: Yes Preferred Pharmacy: [facility] [place], [place] [id number] - [place], [place] - [address] [facility] [address] [facility] [address] [id number] - [place], [place] - [address] [facility] [address] [facility] [address] [place] Status: Patient is a : No Primary [...] AM EDT Nutrition Initial Note Lux Dixon JrFlorencio is a 49 y.o. male admitted with history of CAD s/p CABG, DM, obesity, NSTEMI, HTN, HLD, depression, tobacco use, substance use and left foot pain who presents to [facility] for left lowerextremity bypass. Previous admission at [facility] (07/14-07/21). 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 Incision made at the PIP joint space, amputation performed at the transmetatarsal space. Per H&P note 07/14, patient had also been previously admitted to the [facility] Vascular Surgery service on [...] of this encounter: 101.6 kg (224 lb). [place] Body Weight (IBW) (kg): 75.45 Wt Readings [...] at bedside. 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 Pt did not provide [...] during previous admission and enjoyed these - sports book writer offered to send Glucerna as a lower carbohydrate option pt was agreeable to this(sports book writer sent one today for pt to [...] an evening meal which is usually takeout (level vial grinder or pizza). Drinks up to 18 cans of Mountain Dew/day or 1.5 gallons of milk daily. No data found. Nutrition Focused Physical Exam: Performed . Subcutaneous Fat Loss Orbital region: None present Upper arm region (triceps/biceps): Mild Thoracic and Lumbar regions (ribs, lower back, and maxillary line): None present Lean Muscle Loss [place] region (temporalis muscle): Mild Clavicle bone region [...] Diversional Activities: television smartphone Pain Management Interventions: oexeju-suj-fbsiw dosing utilized care clustered pain management plan [...] and ADLs]: scott Surveillance [continuous indirect monitoring]: [facility] Patient-specific fall prevention interventions for sensory deficits [...] Maldonado MD - 08/01/2024 8:30 AM EDT [facility] Operative Note Patient Name: Lux Dixon Jr. : [id number] MR#: [id number] Case Date: 08/01/2024 Surgeon: Surgeons and Role: [...] foot pain with ulcers who presents to [facility] for left lower extremity [...] proximally and the SFA distally. Theexternal iliac, RAKER BUFFING WHEEL and proximal SFA were endarterectomized in the [...] 10/23/2024 1:00 PM EST Appointment XRay at [address] [place] [address] Isabela Hayward, [facility] [address] 11/09/2024 1:30 PM EST Office Visit [place] [phone] Isabela Hayward, [facility] [address] 11/10/2024 10:00 AM EST Office Visit [place] [phone] Dai Whitman APRN 11/21/2024 2:15 PM EST Office [place] [phone] Dayanara Grover MD [facility] [place] [address] Scheduled Referrals Name Type Priority Associated Diagnoses [...] 8:04 AM EDT Bypass Graft Othr, Fem-Tibial ([id number]) 08/01/2024 7:34 AM EDT CLTI POC, GLUCOSE Routine 08/01/2024 6:23 AM EDT BYPASS GRAFT, FEM-ANT TIBIAL, -POST TIBIAL, -PERONEAL, -DP W\ SYNTHETIC CONDUIT Routine 08/01/2024 6:03 AM EDT IMPLANTABLE DEVICES SCAN 08/01/2024 12:00 AM EDT documented in this encounter Results * POC, GLUCOSE (08/03/2024 12:27 PM EDT) Glucometer, POC 81 65 - 199 mg/dL 08/03/2024 12:[address] [facility] Comment:Supplemental ranges: <140 mg/dL before meals <180 mg/dL all other times of the day. Blood CAPILLARY BLOOD / Unknown 08/03/2024 12:27 PM EDT 08/03/2024 12:27 PM EDT Lisette Maldonado MD POINT OF CARE TEST ORDERABLES [facility] [place] [address] * POC, GLUCOSE (08/03/2024 8:06 AM EDT) Glucometer, POC 137 65 - 199 mg/dL 08/03/2024 8:[address] [facility] Comment:Supplemental ranges: <140 mg/dL before meals <180 mg/dL all other times of the day. Blood CAPILLARY BLOOD / Unknown 08/03/2024 8:06 AM EDT 08/03/2024 8:06 AM EDT Lisette Maldonado MD POINT OF CARE TEST ORDERABLES Performing Organization Address [facility] Co de Phone Number [facility] [place] [address] * Phosphorus (08/03/2024 4:41 AM EDT) Phosphorus 3.4 2.5 - 4.5 mg/dL 08/03/2024 5:[address] [facility] Blood VENOUS BLOOD SPECIMEN / Unknown IP Care Team Draw / Unknown 08/03/2024 4:41 AM EDT 08/03/2024 4:51 AM EDT Lisette Maldonado MD CHEMISTRY ORDERABL ES Performing Organization Address [facility] de Phone Number [facility] [place] [address] * Magnesium (08/03/2024 4:41 AM EDT) Magnesium 0.81 0.69 - 1.07 mMol/L 08/03/2024 5:[address] [facility] Blood VENOUS BLOOD SPECIMEN / Unknown IP Care Team Draw / Unknown 08/03/2024 4:41 AM EDT 08/03/2024 4:51 AM EDT Lisette Maldonado MD CHEMISTRY ORDERABL ES Performing Organization Address [facility] Co de Phone Number [facility] [place] [address] * (ABNORMAL) Basic Metabolic Panel (08/03/2024 4:41 AM EDT) Glucose 179 65 - 199 mg/dL 08/03/2024 6:[address] [facility] Comment:Glucose Concentratio n >=200 mg/dL plus symptoms is consistent with Diabetes Mellitus. Blood Urea Nitrogen 10 10 - 20 mg/dL 08/03[facility]2024 6[facility] Creatinine 0.50(L) 0.80 - 1.50 mg/dL 08/03/2024 6:[address] [facility] Sodium 135 135 - 145 mMol/L 08/03/2024 6:[address] [facility] Potassium 3.9 3.5 - 5.0 mMol/L 08/03/2024 6:[address] [facility] Chloride 100 98 - 107 mMol/L 08/03/2024 6:[address] [facility] Carbon Dioxide 26 22 - 31 mMol/L 08/03/2024 6:[address] [facility] Anion Gap 9 5 - 15 mMol/L 08/03/2024 6:[address] [facility] Calcium 9.6 8.5 - 10.5 mg/dL 08/03/2024 6:[address] [facility] Est Glomerular Filtration Rate - Male 124 mL/min/1. 73 m?? 08/03/2024 6:[address] [facility] Comment: This [...] EDT Lisette Maldonado MD CHEMISTRY ORDERABL ES [facility] [place] [address] * (ABNORMAL) CBC (with Diff) (08/03/2024 4:41 AM EDT) White Blood Cell 10.74(H) 4.00 - 9.50 x10(3)/mc L 08/03/2024 4:[address] [facility] Red Blood Cell 4.23(L) 4.58 - 5.54 x10(6)/mc L 08/03/2024 4:[address] [facility] Hemoglobin 12.5(L) 13.7 - 16.5 g/dL 08/03/2024 4:[address] [facility] Hematocrit 38.5(L) 40.5 - 48.5 % 08/03/2024 4:[address] [facility] Mean Cell Volume 91.0 82.9 - 93.1 fL 08/03/2024 4:[address] [facility] Mean Cell Hemoglobin 29.6 27.5 - 32.1 pg 08/03/2024 4:[address] [facility] Mean Cell Hemoglobin Concentration 32.5 32.0 - 35.7 g/dL 08/03/2024 4:[address] [facility] Platelet 309 145 - 357 x10(3)/mc L 08/03/2024 4:[address] [facility] Mean Platelet Volume 9.7 7.6 - 12.9 fL 08/03/2024 4:[address] [facility] RDW Standard Deviation 44.0 36.0 - 45.0 fL 08/03/2024 4:[address] [facility] RDW coefficient of variation 13.3 11.4 - 13.8 % 08/03/2024 4:[address] [facility] NRBC% auto 0.0 % 08/03/2024 4:[address] [facility] NRBC Absolute <0.01 <0.01 x10(3)/mc L 08/03/2024 4:[address] [facility] Neutrophil % 71.7 % 08/03/2024 4:[address] [facility] Neutrophil Absolute (ANC) - Automated 7.71(H) 1.70 - 6.10 x10(3)/mc L 08/03/2024 4:[address] [facility] Lymph % 18.5 % 08/03/2024 4:[address] [facility] Lymph Absolute 1.99 0.90 - 3.20 x10(3)/mc L 08/03/2024 4:[address] [facility] Monocyte % 7.2 % 08/03/2024 4:[address] [facility] Monocyte Absolute 0.77 0.30 - 0.90 x10(3)/mc L 08/03/2024 4:[address] [facility] Eos % 1.5 % 08/03/2024 4:[address] [facility] Eos Absolute 0.16 0.00 - 0.40 x10(3)/mc L 08/03/2024 4:[address] [facility] Basophil % 0.6 % 08/03/2024 4:[address] [facility] Baso Absolute 0.06 0.00 - 0.10 x10(3)/mc L 08/03/2024 4:[address] [facility] Immature Gran % 0.5 % 4:[address] [facility] Immature Gran Absolute 0.05(H) 0.00 - 0.04 x10(3)/mc L 08/03/2024 4:[address] [facility] Blood VENOUS BLOOD SPECIMEN / Unknown IP Care Team Draw / Unknown 08/03/2024 4:41 AM EDT 08/03/2024 4:51 AM EDT Lisette Maldonado MD HEMATOLOGY ORDERAB LES [facility] [place] [id number] * (ABNORMAL) POC, GLUCOSE (08/03/2024 3:58 AM EDT) Glucometer, POC 200(H) 65 - 199 mg/dL 08/03/2024 3:[address] [facility] Comment:Supplemental ranges: <140 mg/dL before meals <180 mg/dL all other times of the day. Blood CAPILLARY BLOOD / Unknown 08/03/2024 3:58 AM EDT 08/03/2024 3:58 AM EDT Lisette Maldonado MD POINT OF CARE TEST ORDERABLES [facility] [place] [address] * POC, GLUCOSE (08/02/2024 11:06 PM EDT) Glucometer, POC 194 65 - 199 mg/dL 08/02/2024 11:[address] [facility] Comment:Supplemental ranges: <140 mg/dL before meals <180 mg/dL all other times of the day. Blood CAPILLARY BLOOD / Unknown 08/02/2024 11:06 PM EDT 08/02/2024 11:07 PM EDT Lisette Maldonado MD POINT OF CARE TEST ORDERABLES [facility] [place] [address] * (ABNORMAL) POC, GLUCOSE (08/02/2024 7:46 PM EDT) Glucometer, POC 226(H) 65 - 199 mg/dL 08/02/2024 7:[address] [facility] Comment:Supplemental ranges: <140 mg/dL before meals <180 mg/dL all other times of the day. Blood CAPILLARY BLOOD / Unknown 08/02/2024 7:46 PM EDT 08/02/2024 7:46 PM EDT Lisette Maldonado MD POINT OF CARE TEST ORDERABLES [facility] [place] [address] * (ABNORMAL) POC, GLUCOSE (08/02/2024 5:17 PM EDT) Glucometer, POC 236(H) 65 - 199 mg/dL 08/02/2024 5:[address] [facility] Comment:Supplemental ranges: <140 mg/dL before meals <180 mg/dL all other times of the day. Blood CAPILLARY BLOOD / Unknown 08/02/2024 5:17 PM EDT 08/02/2024 5:17 PM EDT Lisette Maldonado MD POINT OF CARE TEST ORDERABLES Performing Organization Address City/[facility]/ZIP Co de Phone Number [facility] [place] [address] * (ABNORMAL) POC, GLUCOSE (08/02/2024 12:44 PM EDT) Glucometer, POC 228(H) 65 - 199 mg/dL 08/02/2024 12:[address] [facility] Comment:Supplemental ranges: <140 mg/dL before meals <180 mg/dL all other times of the day. Blood CAPILLARY BLOOD / Unknown 08/02/2024 12:44 PM EDT 08/02/2024 12:45 PM EDT Lisette Maldonado MD POINT OF CARE TEST ORDERABLES [facility] [place] [address] * POC, GLUCOSE (08/02/2024 7:43 AM EDT) Glucometer, POC 160 65 - 199 mg/dL 08/02/2024 7:[address] [facility] Comment:Supplemental ranges: <140 mg/dL before meals <180 mg/dL all other times of the day. Blood CAPILLARY BLOOD / Unknown 08/02/2024 7:43 AM EDT 08/02/2024 7:43 AM EDT Lisette Maldonado MD POINT OF CARE TEST ORDERABLES Performing Organization Address City/[facility]/ZIP Co de Phone Number [facility] [place] [address] * Phosphorus (08/02/2024 3:49 AM EDT) Phosphorus 3.3 2.5 - 4.5 mg/dL 08/02/2024 4:[address] [facility] Blood VENOUS BLOOD SPECIMEN / Unknown IP Care Team Draw / Unknown 08/02/2024 3:49 AM EDT 08/02/2024 4:24 AM EDT Lisette Maldonado MD CHEMISTRY ORDERABL ES Performing Organization Address [facility]/ZIP Co de Phone Number [facility] [place] [address] * Magnesium (08/02/2024 3:49 AM EDT) Magnesium 0.72 0.69 - 1.07 mMol/L 08/02/2024 6:[address] [facility] Blood VENOUS BLOOD SPECIMEN / Unknown IP Care Team Draw / Unknown 08/02/2024 3:49 AM EDT 08/02/2024 4:24 AM EDT Lisette Maldonado MD CHEMISTRY ORDERABL ES Performing Organization Address City/[facility]/ZIP Co de Phone Number [facility] [place] [address] * (ABNORMAL) Basic Metabolic Panel (08/02/2024 3:49 AM EDT) Glucose 136 65 - 199 mg/dL 08/02/2024 4:[address] [facility] Comment:Glucose Concentratio n >=200 mg/dL plus symptoms is consistent with Diabetes Mellitus. Blood Urea Nitrogen 11 10 - 20 mg/dL 08/02/2024 4:[address] [facility] Creatinine 0.56(L) 0.80 - 1.50 mg/dL 08/02/2024 4:[address] [facility] Sodium 138 135 - 145 mMol/L 08/02/2024 4:[address] [facility] Potassium 3.7 3.5 - 5.0 mMol/L 08/02/2024 4:[address] [facility] Chloride 102 98 - 107 mMol/L 08/02/2024 4:[address] [facility] Carbon Dioxide 24 22 - 31 mMol/L 08/02/2024 4:[address] [facility] Anion Gap 12 5 - 15 mMol/L 08/02/2024 4:[address] [facility] Calcium 9.0 8.5 - 10.5 mg/dL 08/02/2024 4:[address] [facility] Est Glomerular Filtration Rate - Male 120 mL/min/1. 73 m?? 08/02/2024 4:[address] [facility] Comment: This [...] EDT Lisette Maldonado MD CHEMISTRY ORDERABL ES [facility] [place] [address] * (ABNORMAL) CBC (with Diff) (08/02/2024 3:49 AM EDT) White Blood Cell 11.20(H) 4.00 - 9.50 x10(3)/mc L 08/02/2024 4:[address] [facility] Red Blood Cell 4.14(L) 4.58 - 5.54 x10(6)/mc L 08/02/2024 4:[address] [facility] Hemoglobin 12.0(L) 13.7 - 16.5 g/dL 08/02/2024 4:[address] [facility] Hematocrit 37.7(L) 40.5 - 48.5 % 08/02/2024 4:[address] [facility] Mean Cell Volume 91.1 82.9 - 93.1 fL 08/02/2024 4:[address] [facility] Mean Cell Hemoglobin 29.0 27.5 - 32.1 pg 08/02/2024 4:[address] [facility] Mean Cell Hemoglobin Concentration 31.8(L) 32.0 - 35.7 g/dL 08/02/2024 4:[address] [facility] Platelet 330 145 - 357 x10(3)/mc L 08/02/2024 4:[address] [facility] Mean Platelet Volume 10.1 7.6 - 12.9 fL 08/02/2024 4:[address] [facility] RDW Standard Deviation 44.7 36.0 - 45.0 fL [facility] coefficient of variation 13.4 11.4 - 13.8 % 08/02/2024 4:[address] [facility] NRBC% auto 0.0 % 08/02/2024 4:[address] [facility] NRBC Absolute <0.01 <0.01 x10(3)/mc L 08/02/2024 4:[address] [facility] Neutrophil % 71.9 % 08/02/2024 4:[address] [facility] Neutrophil Absolute (ANC) - Automated 8.04(H) 1.70 - 6.10 x10(3)/mc L 08/02/2024 4:[address] [facility] Lymph % 19.7 % 08/02/2024 4:[address] [facility] Lymph Absolute 2.21 0.90 - 3.20 x10(3)/mc L 08/02/2024 4:[address] [facility] Monocyte % 5.7 % 08/02/2024 4:[address] [facility] Monocyte Absolute 0.64 0.30 - 0.90 x10(3)/mc L 08/02/2024 4:[address] [facility] Eos % 1.6 % 08/02/2024 4:[address] [facility] Eos Absolute 0.18 0.00 - 0.40 x10(3)/mc L 08/02/2024 4:[address] [facility] Basophil % 0.7 % 08/02/2024 4:[address] [facility] Baso Absolute 0.08 0.00 - 0.10 x10(3)/mc L 08/02/2024 4:[address] [facility] Immature Gran % 0.4 % 4:[address] [facility] Immature Gran Absolute 0.05(H) 0.00 - 0.04 x10(3)/mc L 08/02/2024 4:[address] [facility] Blood VENOUS BLOOD SPECIMEN / Unknown IP Care Team Draw / Unknown 08/02/2024 3:49 AM EDT 08/02/2024 4:24 AM EDT Lisette Maldonado MD HEMATOLOGY ORDERAB LES Performing Organization Address City/[facility]/ZIP Co de Phone Number [facility] [place] [address] * POC, GLUCOSE (08/02/2024 3:08 AM EDT) Glucometer, POC 151 65 - 199 mg/dL 08/02/2024 3:[address] [facility] Comment:Supplemental ranges: <140 mg/dL before meals <180 mg/dL all other times of the day. Blood CAPILLARY BLOOD / Unknown 08/02/2024 3:08 AM EDT 08/02/2024 3:08 AM EDT Lisette Maldonado MD POINT OF CARE TEST ORDERABLES Performing Organization Address [facility] Co de Phone Number [facility] [place] [address] * POC, GLUCOSE (08/02/2024 12:07 AM EDT) Glucometer, POC 121 65 - 199 mg/dL 08/02/2024 12:[address] [facility] Comment:Supplemental ranges: <140 mg/dL before meals <180 mg/dL all other times of the day. Blood CAPILLARY BLOOD / Unknown 08/02/2024 12:07 AM EDT 08/02/2024 12:08 AM EDT Lisette Maldonado MD POINT OF CARE TEST ORDERABLES [facility] [place] [address] * (ABNORMAL) POC, GLUCOSE (08/01/2024 7:52 PM EDT) Glucometer, POC 234(H) 65 - 199 mg/dL 08/01/2024 7:[address] [facility] Comment:Supplemental ranges: <140 mg/dL before meals <180 mg/dL all other times of the day. Blood CAPILLARY BLOOD / Unknown 08/01/2024 7:52 PM EDT 08/01/2024 7:52 PM EDT Lisette Maldonado MD POINT OF CARE TEST ORDERABLES Performing Organization Address City/[facility]/ZIP Co de Phone Number [facility] [place] [address] * POC, GLUCOSE (08/01/2024 4:28 PM EDT) Glucometer, POC 144 65 - 199 mg/dL 08/01/2024 4:[address] [facility] Comment:Supplemental ranges: <140 mg/dL before meals <180 mg/dL all other times of the day. Blood CAPILLARY BLOOD / Unknown 08/01/2024 4:28 PM EDT 08/01/2024 4:30 PM EDT Lisette Maldonado MD POINT OF CARE TEST ORDERABLES Performing Organization Address City/[facility]/ZIP Co de Phone Number [facility] [place] [address] * (ABNORMAL) POC, GLUCOSE (08/01/2024 11:26 AM EDT) Glucometer, POC 208(H) 65 - 199 mg/dL 08/01/2024 11:[address] [facility] Comment:Supplemental ranges: <140 mg/dL before meals <180 mg/dL all other times of the day. Blood CAPILLARY BLOOD / Unknown 08/01/2024 11:26 AM EDT 08/01/2024 11:26 AM EDT Lisette Maldonado MD POINT OF CARE TEST ORDERABLES [facility] [place] [address] * POC, GLUCOSE (08/01/2024 10:17 AM EDT) Glucometer, POC 82 65 - 199 mg/dL 08/01/2024 10:[address] [facility] Comment:Supplemental ranges: <140 mg/dL before meals <180 mg/dL all other times of the day. Blood CAPILLARY BLOOD / Unknown 08/01/2024 10:17 AM EDT 08/01/2024 10:18 AM EDT Lisette Maldonado MD POINT OF CARE TEST ORDERABLES [facility] [place] [address] * (ABNORMAL) Blood Gas, Arterial POC (08/01/2024 8:04 AM EDT) [facility] pH, Arterial 7.36 7.35 - 7.45 08/01/2024 9:[address] [facility] PCO2, Arterial 43 35 - 45 mmHg 08/01/2024 9:[address] [facility] PO2, Arterial 211(H) 85 - 104 mmHg 08/01/2024 9:[address] [facility] Bicarbonate, Arterial 23.5 20.0 - 26.0 mmol/L 08/01/2024 9:[address] [facility] Base Excess, Arterial -2.1 -3.0 - 3.0 mmol/L 08/01/2024 9:[address] [facility] Hemoglobin, Arterial 12.9(L) 13.7 - 16.5 g/dL 08/01/2024 9:[address] [facility] Oxyhemoglobin, Arterial 96.6 94.0 - 97.0 % 08/01/2024 9:[address] [facility] Carboxyhemoglobin , Arterial 2.3 % 08/01/2024 9:[address] [facility] Comment: Nonsmokers: 0.5-1.5% COHB ?? Smokers: Variable ??but usually less than 10% ?? Toxic: 20-30% COHB ?? Lethal: Greater than 60% COHB Methemoglobin, Arterial 0.2 <=1.5 % 08/01/2024 9:[address] [facility] Sodium, Arterial 137 135 - 145 mmol/L 08/01/2024 9:[address] [facility] Potassium, Arterial 3.8 3.5 - 5.0 mmol/L 08/01/2024 9:[address] [facility] Chloride, Arterial 105 98 - 107 mmol/L 08/01/2024 9:[address] [facility] Lactate, Arterial 2.1 0.5 - 2.2 mmol/L 08/01/2024 9:[address] [facility] IONIZED CALCIUM, ARTERIAL 1.15 1.15 - 1.33 mmol/L 08/01/2024 9:[address] [facility] Glucose, Arterial 164 65 - 199 mg/dL 08/01/2024 9:[address] [facility] Comment:Glucose Concentratio n >=200 mg/dL plus symptoms is consistent with Diabetes Mellitus. Blood ARTERIAL BLOOD / Unknown 08/01/2024 8:04 AM EDT 08/01/2024 9:26 AM EDT Lisette Maldonado MD POINT OF CARE TEST ORDERABLES [facility] [place] [address] * (ABNORMAL) POC, GLUCOSE (08/01/2024 6:23 AM EDT) Glucometer, POC 208(H) 65 - 199 mg/dL 08/01/2024 6:[address] [facility] Comment:Supplemental ranges: <140 mg/dL before meals <180 mg/dL all other times of the day. Blood CAPILLARY BLOOD / Unknown 08/01/2024 6:23 AM EDT 08/01/2024 6:25 AM EDT Lisette Maldonado MD POINT OF CARE TEST ORDERABLES [facility] [place] [address] * Scan Doc: Implantable Devices (08/01/2024 12:00 [...] Lauren Zavala RN) 0308 (Given - Provider: Luaren Zavala RN)0822 (Given - Provider: Jeramy Escobar, DAVID)1518 (Given - Provider: Jeramy Escobar RN) aspirin [...] Routine 1638 (Given - Provider: Jeramy Escobar RN)2058 (Given [...] parameters not met)0400 (Given - Provider: Lauren Zavala, DAVID)0828 (Given - Provider: Jeramy Escobar, DAVID)1246 (Given - Provider: Jeramy Escobar, RN)1718 (Given [...] Lauren Zavala RN)2307 (Given - Provider: Lauren Zavala, DAVID) 0405 (Given - Provider: Lauren Zavala, DAVID)0800 (Hold - Provider: Jeramy Escobar RN - [...] Routine 1446 (Given - Provider: Jeramy Escobar RN)2112 (Given - Provider: Isabel Smart RN) 899 (Not Given - Provider: Jeramy Escobar, RN - Reason: Contraindicated)2017 (Given - Provider: Lauren Zavala, DAVID) 08 (Given - Provider: Jeramy Escobar, DAVID) [...] route first line., Recovery (Recovery-Hospital Unit), Routine 133 (Given - Provider: Shannon Haney RN)2126 (Given - Provider: Lauren Zavala RN) 030 (Given - Provider: Lauren Zavala RN)0825 (Given - Provider: Jeramy Escobar, DAVID)1238 (Given [...] 030 (See Alternative - Provider: Lauren Zavala RN)0825 (See Alternative - Provider: Jeramy Escobar RN)1238 (See Alternative - Provider: Jeramy Escobar RN)2011 (See Alternative - Provider: Lauren Zavala, DAVID) [...] Unit), Routine 1437 (Given - Provider: Jeramy Escboar RN)2242 (Given - Provider: Lauren Zavala, DAVID) 0551 (Given - Provider: Lauren Zavala RN)1450 [...] Routine documented in this encounter Care Teams Upsetter Relationship Specialty Start Date End Date None None PCP - General 05/27/24 09/17/24 documented as of this encounter
--- OUTSIDE RECORDS SUMMARY | 2024-10-20 12:50 | XMS_ITS | Encounter Summary ---
Author Organization [facility] [place] [address] Care Team Providers Care Dancer Or Choreographer Name Role Phone None Primary Care Provider Unavailabl e Reason for Visit * Auth/Cert (Routine) Specialty Diagnoses / Procedures Referred By Contac t Referred To Contact Diagnoses CLTI Procedures PRO BYPASS GRAFT OTHR, FEM-TIBIAL @BYPASS GRAFT, FEM-ANT TIBIAL, -POST TIBIAL, -PERONEAL, -DP W\ SYNTHETIC CONDUIT (WRVU 23.66) Lisette Maldonado MD [facility] [place] [address] [facility] Referral ID Status Reason Start Date Expiration Date Visits Re quested Visits Authorized [id number] 1 1 Encounter Details Date Type Department Care Team (Late st Contact Info) Description 08/01/2024 7:28 AM EDT Anesthesia Event [place] [address] Cornelius Church MD [facility] [place] [address] Marko Mckeon CRNA [facility] [place] [address] Anesthesia Record Procedure Summary Procedure Name Responsible [...] Glucose 164 Lactate 2.08 0826 Procedure Start 0922 Break/Relief In I assumed ca re for [...] Airways Type Details Placement Removal Wound 07/15/24; 1899; Y; L eft; first toe; neuropathic wound/ulcer; LDA not present upon assessment; 09/26/24; 1752 07/15/241899 by Jay Ignacio RN 09/26/241751 by Pamela Eli RN Wound 07/15/24; 1900; Y; L eft; fifth toe; neuropathic wound/ulcer; LDA not present upon assessment; 09/26/24; 175107/15/24 190 by Jay Ignacio RN 09/26/24 175 by Pamela Eli RN Incision 07/19/24; 0946; Left ; second toe; 10/06/24; 94107/19/24 0946 by Alan Tobias RN 10/06/24 0942 by Liana Mccormack RN Incision 07/20/24; 1030; ante rior, Right; groin; non-laparascopic puncture; LDA not present upon assessment; 08/02/24; 203007/20/24 1030 by Hailey Nick RN 08/02/242030 by Lauren Zavala RN PIV 08/01/24; 0637; pcca-wya-qmcjdo catheter system; 20 gauge; metacarpal vein (top of hand), left; Anatomical Landmarks; brian hogue; distraction, tolerated well, appears comfortable; LDA not present upon assessment; 09/26/24; 1533 08/01/24 0637 by Brian Hogue RN 09/26/24 1533 by Pamela Eli RN ETT Mask Ventilation: Ad junct (2); ETT Type: Cuffed; ETT Size: 8 mm; Mac Blade: 3; Notes: Asleep, Pre-O2, Stylette; Attempts: 1; Laryngoscopy Grade: 1; ETT Placement Verified By: Auscultation, Capnometry, Visual; Secured at Teeth: 22 cm; Inserted by: Linda; Removal Date: 08/01/24; Removal Time: 11008/01/24 0741 by Marko Mckeon, CHILD CARE COUNSELOR 08/01/24 1109 by Marko Mckeon CRNA Arterial Line 08/01/24; 0750; radi al artery, left; 20 gauge; continuous blood pressure monitoring, frequent blood gas measurement; Linda; Sterile Prep, Sterile Gloves; 08/01/24; 08/01/24 0750 by Marko Mckeon, CHILD CARE COUNSELOR 08/01/24 1816 by Jeramy Escobar RN PIV 08/01/24; 0750; 18 g auge; cephalic vein (lateral side of arm), right; Lynnette; LDA not present upon assessment; 09/26/24; 1533 08/01/24 0750 by Marko Mckeon, CHILD CARE COUNSELOR 09/26/24 1533 by Pamela Eli RN Urethral Catheter 08/01/24; 0758; Surg wei longer than 2 hours; indwelling double lumen catheter; 100% silicone; 14; inserted at [facility]; 1; 10; 10; (lube); drainage bag; 08/02/24; 0645 08/01/24 0758 by Smooth Parson RN 08/02/24 0645 by Lauren Zavala RN Incision 08/01/24; 0832; Left , lower, medial; leg; vertical; LDA not present upon assessment; 09/26/24 08/01/24 0832 by Smooth Parson RN 09/26/24 0000 by Candie Tatum RN Incision 08/01/24; 0833; Left ; groin; vertical; LDA not present upon assessment; 09/26/24 08/01/24 0833 by Smooth Parson RN 09/26/24 0000 by Candie Tatum RN documented in this encounter Social History Tobacco Use Types Packs/Day Years Used Date Smoking Tobacco: Every Day Cigarettes 1 25 Started: 12/28/1986; Last attempted to quit: 12/28/2011 Smokeless Tobacco: Never Alcohol Use Standard Drinks/Week Comments No 0 (1 standard drink = 0.6 oz pur e alcohol) [facility] Utilities Answer Date Recorded In the past 12 months has e Number 100, gas, oil, or water [employer] threatened to shut off services in your [...] any time in the past 12 m [facility], were you homeless or living in [...] Procedure Summary Date: 08/01/24 Room / Location: [facility] OR [address] [place] [address] MAIN OR Anesthesia Start: 727 Anesthesia Stop: 1114 Procedure: @BYPASS GRAFT, FEM-ANT TIBIAL, -POST TIBIAL, -PERONEAL, -DP W\ SYNTHETIC CONDUIT (WRVU 23.66) (Left: Leg) Diagnosis: (CLTI) Surgeons: Lisette Maldonado MD Responsible Provider: Cornelius Church MD Anesthesia Type: general ASA Status: 3 All Anesthesia Providers: Anesthesiologist: Cornelius Church MD CHILD CARE COUNSELOR: Marko Mckeon CRNA Vitals Value Taken Time BP 107/65 08/01/24 1315 Temp 36.5 ??C (97.7 ??F) 08/01/24 1315 Pulse 84 08/01/24 1324 Resp 19 08/01/24 1324 SpO2 98 % 08/01/24 1349 Pain Level 9 08/01/24 1331 Vitals shown include unfiled device data. Patient Location: PACU/[facility] Level of Consciousness: Awake and Alert Pain [...] 3.51) performed by Thony Garcia MD at [facility] MAIN OR ??? PRO CABG, ARTERY-VEIN, SINGLE 01/04/2012 @CABG, VENOUS & ARTERIAL GRAFT;SINGLE VEIN GRAFT performed by INNA TOVAR at [facility] MAIN OR ??? PRO ENDOSCOPY W/VIDEO-ASST VEIN HARVEST, CABG 01/04/2012 ENDOSCOPIC HARVEST VEIN(S) FOR CABG performed by INNA TOVAR at [facility] MAIN OR ??? VS ARTERIOGRAM LOWER EXTREMITY VASCULAR SURGERY 07/20/2024 VS Arteriogram Lower Extremity Vascular Surgery 07/20/2024 Taylor Ruiz MD [facility] INTERVENTIONL RAD Social History Tobacco Use [...] risks discussed with patient. Plan discussed with CHILD CARE COUNSELOR. Anesthesia Screening documented in this encounter Plan of Treatment Upcoming Encounters Date Type Department Care Team (Late st Contact Info) Description 10/23/2024 1:00 PM EST Appointment XRay at [address] [place] [address] Isabela Hayward APRN [facility] [place] [address] 11/09/2024 1:30 PM EST Office [place] [address] Isabela Hayward APRN [facility] [place] [address] 11/10/2024 10:00 AM EST Office [place] [phone] Dai Whitman APRN 11/21/2024 2:15 PM EST Office [place] [address] Dayanara Grover MD [facility] [place] [address] documented as of this encounter Visit Diagnoses [...] PRN, Starting on Wed08/01/24 at 0803, Until 08/01/24 at 1115, Anesthesia Intra-op, Routine Given 08/01/2024 10:24 AM EDT 20 mg Given 08/01/2024 9:37 AM EDT 20 mg Given 08/01/2024 8:42 AM EDT 20 mg sodium chloride 0.9% infusion Intravenous, CONTINUOUS PRN, Starting on e 08/01/24 at 0750, Until Tu08/01/24 at 1115, Anesthesia Intra-op New Bag 08/01/2024 7:50 AM EDT sugammadex (Bridion) 100 mg/mL injection Intravenous, PRN, Starting on e 08/01/24 at 1050, Until e 08/01/24 at 1115, Anesthesia Intra-op, Routine Given 08/01/2024 10:50 AM EDT 200 mg documented in this encounter Care Teams Dancer Or Choreographer Relationship Specialty Start Date End Date None None PCP - General 05/27/24 09/17/24 documented as of this encounter
--- OUTSIDE RECORDS SUMMARY | 2024-10-20 12:50 | XMS_ITS | Encounter Summary ---
Author Organization [facility] [place] [address] Care Team Providers Care Supervisor Joiners Name Role Phone None Primary Care Provider Unavailabl e Encounter Details Date Type Department Care Team (Late st Contact Info) Description 07/24/2024 Telephone [place] [phone] Fallon Lemus RN Social History Tobacco Use [...] in a penitentiary (including now)? No 07/17/2024 DH IPV Inpatient [...] 10/23/2024 1:00 PM EST Appointment XRay at [address] [place] [address] Isabela Hayward, [facility] [place] [address] 11/09/2024 1:30 PM EST Office Visit [place] [address] Isabela Hayward, [facility] [place] [address] 11/10/2024 10:00 AM EST Office Visit [place] [phone] Dai Whitman, EXPLOSIVE OPERATOR SUPERVISOR 11/21/2024 2:15 PM EST Office Visit [place] [address] Dayanara Grover MD [facility] [place] [address] documented as of this encounter Visit Diagnoses Not on filedocumented in this encounter Care Teams Supervisor Joiners Relationship Specialty Start Date End Date None None PCP - General 05/27/24 09/17/24 documented as of this encounter
--- OUTSIDE RECORDS SUMMARY | 2024-10-20 12:51 | XMS_ITS | Encounter Summary ---
[place] [address] Care Team Providers Care Senior Scientist Name Role Phone None Primary Care Provider Unavailabl e Reason for Visit * Auth/Cert (Routine) Specialty Diagnoses / Procedures Referred By William t Referred To Contact Diagnoses Peripheral artery disease Ischemic foot Procedures EMERGENCY IPI Thony Garcia MD [facility] [place] [address] [facility] Referral ID Status Reason Start Date Expiration Date Visits Re quested Visits Authorized [id number] 1 1 Encounter Details Date Type Department Care Team (Late st Contact Info) Description 07/19/2024 8:57 AM EDT Anesthesia Event [place] [address] Penny Mathias MD [facility] [place] [address] Diana Patiño Anesthesia Record Procedure Summary Procedure [...] LDA not present upon assessment; 09/26/24; 17507/15/24 190 by Jay Ignacio RN 09/26/24 1752 by Pamela Eli RN Wound 07/15/24; 1900; Y; L eft; second toe; neuropathic wound/ulcer; 2nd toe amp; LDA not present upon assessment; 07/19/24; 21507/15/24 190 by Jay Ignacio RN 07/19/24 215 by Taylor Jonas RN Wound 07/15/24; 1900; Y; L eft; fifth toe; neuropathic wound/ulcer; LDA not present upon assessment; 09/26/24; 17507/15/24 190 by Jay Ignacio RN 09/26/24 175 by Pamela Eli RN PIV 07/16/24; 1845; awim-tpe-vjtibi catheter system; 22 gauge, 1.75 in length; median vein (underside of arm), left; Ultrasound Guidance; Yes - US guidance used but Image NOT saved; Erick Ponce RN, VAS; distraction, tolerated well, appears comfortable; 0; site symptomatic; 07/21/24; 0008 07/16/24 1845 by Erick Ponce RN 07/21/24 0008 by Carlos Enrique Knowles RN PIV 07/18/24; 1027; spto-ovk-hhcejm catheter system; 22 gauge, 1.75 in length; cephalic vein (lateral side of arm), right; Ultrasound Guidance; Yes - US guidance used but Image NOT saved; Kwabena Chávez RN VAS; distraction, tolerated well; 07/21/24; 174607/18/24 1027 by Jorge Torres RN 07/21/24 174 by Nava Huggins RN Supraglottic Mask Ventilation: Ad junct (2); LMA Type: iGel; LMA Size: 5; Inserted by: Kaylyn ODEN; Removal Date: 07/19/24; Removal Time: 101607/19/24 0911 by Diana Patiño 07/19/24 1017 by Diana Patiño Incision 07/19/24; 945; Left ; second toe; 10/06/24; 94107/19/24 0946 by Alan Tobias RN 10/06/24 0942 by Liana Mccormack RN documented in this [...] the past 12 months has th e [employer], gas, oil, or water [employer] threatened to shut off services in your home? No 07/17/2024 Hunger Vital Sign Answer Date Recorded Within the past 12 months, y ou worried that your food would run out before you got the money to buy more. Never true 07/17/20 Within the past 12 months, t he [...] any time in the past 12 m [facility], were you homeless or living in a senior living (including now)? No 07/17/2024 DH IPV Inpatient [...] Procedure Summary Date: 07/19/24 Room / Location: [address] MAIN OR Anesthesia Start: 856 Anesthesia Stop: 1111 Procedure: AMPUTATION TOE, METATARSO-PHALANGEAL JOINT (WRVU 3.51) (Left: Toe) Diagnosis: (peripheral artery disease) Surgeons: Thony Garcia MD Responsible Provider: Penny Mathias MD Anesthesia Type: general ASA Status: 3 All Anesthesia Providers: Anesthesiologist: Penny Mathias MD Student Nurse Fire Prevention Officer: Diana Patiño Vitals Value Taken Time BP 132/91 07/19/24 1145 Temp 36.1 ??C (97 ??F) 07/19/24 1109 Pulse 82 07/19/24 1145 Resp 15 07/19/24 1145 SpO2 93 % 07/19/24 1145 Pain Level 0 07/19/24 1145 Patient Location: PACU/[facility] Level of Consciousness: Awake and Alert Pain [...] VEIN GRAFT performed by INNA TOVAR at [facility] MAIN OR PRO ENDOSCOPY W/VIDEO-ASST VEIN HARVEST, CABG 01/04/2012 ENDOSCOPIC HARVEST VEIN(S) FOR CABG performed by INNA TOVAR at [facility] MAIN OR Social History Tobacco Use [...] 1:00 PM EST Appointment XRay at [address] [place] [phone] Isabela Hayward, CATTLE AND WHEAT FARMER [facility] [place] [address] 11/09/2024 1:30 PM EST Office [place] [phone] Isabela Hayward, [employer] WHE[employer] F[employer] [facility] [place] [address] 11/10/2024 10:00 AM EST Office [place] [phone] Dai Whitman APRN 11/21/2024 2:15 PM EST Office [place] [phone] Dayanara Grover MD [facility] [place] [address] documented as of this encounter Visit Diagnoses [...] mg documented in this encounter Care Teams Senior Scientist Relationship Specialty Start Date End Date None None PCP - General 05/27/24 09/17/24 documented as of this encounter
--- OUTSIDE RECORDS SUMMARY | 2024-10-20 12:51 | XMS_ITS | Encounter Summary ---
Author Organization [place] [id number] Care Team Providers Care Tower Erector Name Role Phone None Primary Care Provider Unavailabl e Reason for Visit * Reason Comments Hospital Transfer * Auth/Cert (Routine) Specialty Diagnoses / Procedures Referred By William t Referred To Contact Diagnoses Peripheral artery disease Ischemic foot Procedures EMERGENCY IPI Thony Garcia MD [facility] [place] [address] [facility] Referral ID Status Reason Start Date Expiration Date Visits Re quested Visits Authorized [id number] 1 1 Encounter Details Date Type Department Care Team (Latest Contact Info) Description 07/14/2024 6:07 PM EDT - 07/21/2024 7:15 PM EDT Hospital Encounter Surgical Unit Level 4 [place] [id number] Thony Garcia MD [facility] [place] [address] Cellulitis of foot, left; Peripheral artery disease; [...] any time in the past 12 m [facility], were you homeless or living in a usp (including now)? No 07/17/2024 DH IPV Inpatient [...] patient has been previously admitted to the [facility] Vascular Surgery [...] concern for limb ischemia who [facility]. Recent admit 05/2024 for short segment left popliteal occlusion; he was treated with a heparin drip and antibiotics for cellulitis with improvement. He was discharged on Xarelto 2.5mg BID, aspirin and short course of Augmentin with instructions to be seen in [address] [facility], which he did not show for the [...] of an occluded SVG-RPDA graft with a AUDIT DIRECTOR of his right coronary artery. He has [...] 149 Dorsalis Pedis (Ankle) Artery 83 0.55 Gordon-Biphasic Posterior Tibial (Ankle) Artery 87 0.57 Monophasic [...] and Orders Future Orders Complete By Expires [employer] [EQ161 Custom] As directed Process Instructions: Scheduling Instructions: Comments: Geovanna Dixon Jr. [address] [facility] [address] [phone] (home) Telephone Information: Diagnosis: deconditioning with Unsteady gait Significant weakness, ataxia or gait abnormality Patient's: Hgt: Ht Readings from Last 1 Encounters: 07/14/24 : 177.8 cm (5' 10) Wgt: Wt Readings from Last 1 Encounters: 07/14/24 : 99.8 kg (220 lb) VENDOR: [employer] Ordering: Front wheel walker Deliver to [facility] room #: 448A Questions: Device Needed: WALKER [...] 0 * aspirin EC 81 mg EC () tablet Take 1 tablet by mouth daily. [...] Blood thinner have been sent to your [facility] in [facility]. Anticoagulation: xarelto 20 mg daily Call [...] For any problems or questions please call [phone] For issues on weeknights after 5pm and weekends please call [phone] and ask for the Vascular Fellow almond grinder. Geovanna-for your diabetes! Most important thing is [...] juice or regular (not diet) soda 6 Anagnosticss small box of raisins 4 glucose tablets [...] Tierney APRN - 07/20/2024 10:13 AM EDT [facility] Interventional Radiology Post Angiography Instructions [...] or hoildays, call and ask for the co founder and president almond grinder. OR Vascular Department at until 4:45pm. After 4:45pm call and ask for the Vascular resident almond grinder. 10. If you are a diabetic and [...] Blood thinner have been sent to your [facility] in [facility]. Anticoagulation: xarelto 20 mg daily Call [...] For any problems or questions please call [phone] For issues on weeknights after 5pm and weekends please call [phone] and ask for the Vascular Fellow almond grinder. Geovanna-for your diabetes! Most important thing is [...] diabetes mellitus 15 mL 1 07/21/2024 10/10/2024 amoxicillin-clavula florence (Augmentin) 875-125 mg tablet Take 1 tablet by mouth 2 times daily for 12 days. 24 tablet 07/21/2024 08/03/2024 rivaroxaban (Xarelto) 20 mg tablet Take 1 [...] 2 times daily. 120 tablet 06/02/2024 10/10/2024 aspirin 81 mg EC tablet Take 1 [...] HCP Completion of AVS * Thuy Jiang, RESHMA - 07/21/2024 12:26 PM EDT Images from [...] 204* 342* 296* 251* ASSESSMENT Geovanna Dixon Florencio is a 49 [...] Carb Controlled 60/60/75g Monitoring: BG Q4 Discharge Planning/senior living diabetes care: Medications - Outpatient treatment regimen [...] 3.51) performed by Thony Garcia MD at [facility] MAIN OR PRO CABG, ARTERY-VEIN, SINGLE 01/04/2012 @CABG, VENOUS & ARTERIAL GRAFT;SINGLE VEIN GRAFT performed by INNA TOVAR at [facility] MAIN OR PRO ENDOSCOPY W/VIDEO-ASST VEIN HARVEST, CABG 01/04/2012 ENDOSCOPIC HARVEST VEIN(S) FOR CABG performed by INNA TOVAR at [facility] MAIN OR Active Non-Hospital Problems Diagnosis [...] Anne PT, Doctor of Physical Therapy Pager: [phone] Physical Therapy Inpatient Rehabilitation Department * Carlos [...] MD Vascular Surgery 07/20/24 [id number] * Dominique Anne, PT - 07/20/2024 2:05 PM EDT Physical [...] Anne PT, Doctor of Physical Therapy Pager: [phone] Physical Therapy Inpatient Rehabilitation Department * Hailey Nick RN - 07/20/2024 10:00 AM EDT ANGIO NURSING DATABASE Name: Geovanna Dixon JrFlorencio Date of : 1975 AGE: 49 y.o. Address: [address] [place] [address] [facility] [address] Phone: [phone] (home) Mobile: Telephone Information: Referring Provider: Herminio [...] 07/20/2024 PLATELET 283 06/02/2024 * Thuy Jiang, RESHMA - 07/20/2024 8:49 AM EDT Images from [...] 111 195 118 186 185 ASSESSMENT Geovanna Viet Dixon Jr. is a 49 y.o. years [...] Carb Controlled 60/60/75g Monitoring: BG Q4 Discharge Planning/senior living diabetes care: Medications - Outpatient treatment regimen [...] AM EDT Vascular Surgery Pre-Angio Note Geovanna Viet Dixno Jr. HPI: Geovanna Llanos Zack Winter is a 49 y.o. male with CLTI [...] Q6H PRN Cristiano Jones MD No current [facility]-ordered outpatient medications on file. Allergies No [...] ASA II Rubio Grimaldo MD Vascular Surgery [facility] Vascular Surgery Floor Pager: [phone] Vascular Surgery Consult Pager: [phone] * Rubio Grimaldo MD - 07/20/2024 8:00 [...] patient has been previously admitted to the [facility] Vascular Surgery [...] Medications: insulin lispro 1-11 Units Subcutaneous Q4H JSOE insulin lispro 0-20 Units Subcutaneous TID WC [...] nonfocal, follows commands Labs: Recent Labs 07/20/24 0342 07/19/24 0345 07/18/24 0333 WBC 16.61* 12.45* 11.56* HGB 13.0* 13.6* 13.4* HCT 39.2* 41.0 40.2* PLATELET 458* 421* 392* Recent Labs 07/20/24 0341 07/19/24 0345 07/18/24 0333 NA 135 138 136 K 4.2 3.9 4.3 CL 102 103 101 CO2 21* 23 23 BUN 12 7* 8* CREATININE 0.53* 0.56* 0.53* PHOS 3.4 4.3 3.7 CALCIUM 9.4 9.6 9.2 Microbiology: Microbiology Results (last 7 days) Procedure Component Value - Date/Time Anaerobic Culture [[id number]] Collected: 07/19/24950 Lab Status: Preliminary result Specimen: Bone from Toe(s), Left Foot Updated: 07/20/24 1420 Anaerobic Culture No anaerobic organisms isolated to date Fungus culture [[id number]] Collected: 07/19/24950 Lab Status: Preliminary result Specimen: Bone from Toe(s), Left Foot Updated: 07/20/24 0931 Fungus Culture No fungus isolated to date Bone Culture [[id number]] Collected: 07/19/24950 Lab Status: Preliminary result Specimen: Bone from Toe(s), Left Foot Updated: 07/20/24 0650 Bone Culture No growth to date Gram Stain No neutrophils seen No microorganisms seen MRSA PCR Screen [[id number]] (Normal) Collected: 07/16/24 1407 Lab Status: Final result Specimen: Swab from Nares Updated: 07/17/24 1804 MRSA PCR Not Detected Narrative: This test was performed using the Xpert MRSA NxG test kit and is run on the MtivityXpert Dx System. This test is cleared by the U.S. Food and Drug Administration for clinical use and its performance characteristics have been verified by the [facility] at [facility]. This test was performed using the Xpert MRSA NxG test kit and is run on the MtivityXpert Dx System. This test is cleared by the U.S. Food and Drug Administration for clinical use and its performance characteristics have been verified by the [facility] at [facility]. New Studies: ABIs 07/17/24: Findings: Right Pressure (mm Hg) ELEN Waveform TBI Brachial Artery 152 Dorsalis Pedis (Ankle) Artery 167 1.10 Triphasic Posterior Tibial (Ankle) Artery 168 1.11 Triphasic Great Toe 141 0.93 Left Pressure (mm Hg) ELEN Waveform TBI Brachial Artery 149 Dorsalis Pedis (Ankle) Artery 83 0.55 Gordon-Biphasic Posterior Tibial (Ankle) Artery 87 0.57 Monophasic [...] who have questions please contact the health senior care specialist that requested your imaging first. Electronically signed by: Geovanna Ray MD, [facility] ([phone]), at 07/14/2024 10:[address] Angiogram Aortic [...] 2.6 cm vessel length at and just vrial-zwy-hjhi, similar to prior. Anterior tibial artery: No [...] who have questions please contact the health senior care specialist that requested your imaging first. Electronically signed by: Geovanna Ray MD, [facility] ([phone]), at 07/15/2024 1:13 AM Assessment & Plan: [...] status: Full Rubio Grimaldo MD 07/20/2024 Pager: [phone] * Fallon Oliva MD - 07/19/2024 3:21 PM EDT Post-Operative [...] as appropriate. Thanks. Oli Call, ELDON Beeper# [phone] * María Carranza APRN - 07/19/2024 9:54 [...] patient has been previously admitted to the [facility] Vascular Surgery [...] Component Value - Date/Time MRSA PCR Screen [[id number]] (Normal) Collected: 07/16/24 1407 Lab Status: Final result Specimen: Swab from Nares Updated: 07/17/24 180 MRSA PCR Not Detected Narrative: This test was performed using the Xpert MRSA NxG test kit and is run on the [employer] GeneXpert Dx System. This test is cleared by the U.S. Food and Drug Administration for clinical use and its performance characteristics have been verified by the [facility] at [facility]. This test was performed using the Xpert MRSA NxG test kit and is run on the [employer] GeneXpert Dx System. This test is cleared by the U.S. Food and Drug Administration for clinical use and its performance characteristics have been verified by the [facility] at [facility]. New Studies: ABIs 07/17/24: Findings: Right Pressure (mm Hg) ELEN Waveform TBI Brachial Artery 152 Dorsalis Pedis (Ankle) Artery 167 1.10 Triphasic Posterior Tibial (Ankle) Artery 168 1.11 Triphasic Great Toe 141 0.93 Left Pressure (mm Hg) ELEN Waveform TBI Brachial Artery 149 Dorsalis Pedis (Ankle) Artery 83 0.55 Gordon-Biphasic Posterior Tibial (Ankle) Artery 87 0.57 Monophasic [...] who have questions please contact the health senior care specialist that requested your imaging first. Electronically signed by: Geovanna Ray MD, [facility] ([phone]), at 07/14/2024 10:[address] Angiogram Aortic [...] 2.6 cm vessel length at and just rbqyd-fnk-wuar, similar to prior. Anterior tibial artery: No [...] who have questions please contact the health senior care specialist that requested your imaging first. Electronically signed by: Geovanna Ray MD, [facility] ([phone]), at 07/15/2024 1:13 AM Assessment & Plan: Geovanna Llanos Zack Jr. is a 49 y.o. male [...] status: Full María Carranza APRN 07/19/2024 Pager: [phone] * Oli Call, PT - 07/18/2024 12:53 PM EDT Physical Therapy Note 2 Patient profile: Geovanna Dixon is a 49 [...] 13 ; functional mobility OLI CALL, PT Pager:[phone] Physical Therapy Inpatient Rehabilitation Department * Fallon [...] patient has been previously admitted to the [facility] Vascular Surgery [...] 149 Dorsalis Pedis (Ankle) Artery 83 0.55 Gordon-Biphasic Posterior Tibial (Ankle) Artery 87 0.57 Monophasic [...] who have questions please contact the health senior care specialist that requested your imaging first. Electronically signed by: Geovanna Ray MD, [facility] ([phone]), at 07/14/2024 10:[address] Angiogram Aortic [...] 2.6 cm vessel length at and just suicw-nwd-pycy, similar to prior. Anterior tibial artery: No [...] who have questions please contact the health senior care specialist that requested your imaging first. Electronically signed by: Geovanna Ray MD, [facility] ([phone]), at 07/15/2024 1:13 AM Assessment & Plan: [...] 07/18/2024 Vascular Surgery p.[phone] * Lakeisha Berry, SECTION LEADER - 07/18/2024 10:00 AM EDT Glucose Management Team Inpatient Progress Note HPI Geovanna Dixon Jr. is a 49 y.o. male from [place], [place], with PMH significant for T2DM IDDM [...] 262* 262* 217* 184 ASSESSMENT Geovanna Dixon . is a 49 y.o. years old male [...] ICR 1:4g). Recommendations given to team, ordered placedlForencio Geovanna, his mother Cony, and I talked [...] Carb Controlled 60/60/75g Monitoring: BG Q4 Discharge Planning/buttermaker diabetes care: Medications - Outpatient treatment regimen [...] the consulting service. Lakeisha Berry APRN, DNP, -[facility] Inpatient Diabetes Management Team Team pager #[phone] (DRAFT) Diabetes Discharge Instructions & Recommendations Check [...] at [facility] MAIN OR Social History: Home set-up: [...] UEs and deep breathing Assessment: Geovanna Dixon JrFlorencio was seen today for physical therapy evaluation. [...] Billing Code: evaluation OLI CALL, PT Pager: [phone] Physical Therapy Inpatient Rehabilitation Department * Lakeisha Berry, SECTION LEADER - 07/17/2024 2:00 PM EDT Glucose Management Team Inpatient Progress Note HPI Geovanna Dixon Jr. is a 49 y.o. male from [place], [place], with PMH significant for T2DM IDDM [...] management and to provide a review of care home diabetes care. Original consult completed: 07/15 by [...] 205* 187 254* 324* ASSESSMENT Geovanna Dixon . is a 49 y.o. years old male [...] Carb Controlled 60/60/75g Monitoring: BG Q4 Discharge Planning/buttermaker diabetes care: Medications - Outpatient treatment regimen [...] the consulting service. Lakeisha Berry APRN, DNP, -[facility] Inpatient Diabetes Management Team Team pager #[phone] * Hermila White APRN - 07/17/2024 7:45 [...] patient has been previously admitted to the [facility] Vascular Surgery [...] Once insulin lispro 0-8 Units Subcutaneous TID insulin lispro 1-6 Units Subcutaneous Q4H [facility] insulin glargine (Lantus;Semglee) (100 unit/mL) subcutaneous [...] 1539 07/16/24 0415 07/16/24 0207 07/15/24 0045 07/14/24 1939 NA 135 -- -- 135 132* 137 [...] who have questions please contact the health senior care specialist that requested your imaging first. Electronically signed by: Geovanna Ray MD, [facility] ([phone]), at 07/14/2024 10:[address] Angiogram Aortic [...] 2.6 cm vessel length at and just fochg-qrb-sxil, similar to prior. Anterior tibial artery: No [...] who have questions please contact the health senior care specialist that requested your imaging first. Electronically signed by: Geovanna Ray MD, [facility] ([phone]), at 07/15/2024 1:13 AM Assessment & Plan: [...] (patient unsure whether he was taking this FORGING MACHINE HAND) - Glargine 50 units nightly; meal associated lispro ICR 1:6g; moderate correction scale q4hrs - Diabetes management team consult, appreciate recommendations - Home meds: Losartan, metoprolol, protriptyline, PPI, venlafaxine - Full code Hermila White APRN 07/17/2024 Pager: [phone] * Dai Carter RN - 07/17/2024 2:43 [...] patient has been previously admitted to the [facility] Vascular Surgery [...] 363* 322 313 Recent Labs 07/16/24 0415 07/16/24 0207 07/15/24 0045 07/14/241938 NA -- 135 132* 137 K [...] who have questions please contact the health senior care specialist that requested your imaging first. Electronically signed by: Geovanna Ray MD, [facility] ([phone]), at 07/14/2024 10:[address] Angiogram Aortic [...] 2.6 cm vessel length at and just smgpr-otp-fmeb, similar to prior. Anterior tibial artery: No [...] who have questions please contact the health senior care specialist that requested your imaging first. Electronically signed by: Geovanna Ray MD, [facility] ([phone]), at 07/15/2024 1:13 AM Assessment & Plan: [...] (patient unsure whether he was taking this FORGING MACHINE HAND) - Glargine 45 units nightly; meal associated lispro ICR 1:6g; moderate correction scale q4hrs - Diabetes management team consult, appreciate recommendations - Home meds: Losartan, metoprolol, protriptyline, PPI, venlafaxine - Full code Hermila White APRN 07/16/2024 Pager: [phone] * Dayanara Grover MD - 07/16/2024 8:52 [...] management and to provide a review of care home diabetes care. Objective Temp: [36.8 ??C (98.2 [...] he will need outpatient follow up at [facility] endocrine clinic. He lives in [facility], but notes he has a truck [...] primary team (vascular surgery). Dayanara Grover PGY-5 [facility] Endocrinology Associated [...] Chat sent regarding elevated blood sugars * Christopher Hermila RESHMA Chávez - 07/15/2024 2:16 PM EDT Images from [...] patient has been previously admitted to the [facility] Vascular Surgery [...] or shortness of breath. - Last BM FORGING MACHINE HAND Objective: Temp: [36.4 ??C (97.5 ??F)-36.7 ??C [...] intact, nonfocal, follows commands Labs: Recent Labs 07/15/24 0045 07/14/241938 WBC 11.70* 8.69 HGB 12.1* 11.7* HCT 35.7* 34.5* PLATELET 322 313 Recent Labs 07/15/24 0045 07/14/241938 NA 132* 137 K 3.7 3.7 CL [...] who have questions please contact the health senior care specialist that requested your imaging first. Electronically signed by: Geovanna Ray MD, [facility] ([phone]), at 07/14/2024 10:[address] Angiogram Aortic [...] 2.6 cm vessel length at and just ycnvn-uck-jcam, similar to prior. Anterior tibial artery: No [...] who have questions please contact the health senior care specialist that requested your imaging first. Electronically signed by: Geovanna Ray MD, [facility] ([phone]), at 07/15/2024 1:13 AM Assessment & Plan: [...] (patient unsure whether he was taking this FORGING MACHINE HAND) - Glargine 28 units nightly; meal associated lispro ICR 1:8g; moderate correction scale to [id number] - Diabetes management team consult - Home meds: Losartan, metoprolol, protriptyline, PPI, venlafaxine - Full code Hermila White APRN 07/15/2024 Pager: [phone] documented in this encounter H&P Notes * Dejah Marshall MD - 07/14/2024 10:16 PM EDT Images from the original note were not included. Vascular Surgery H&P Note Patient Name: Geovanna Dixon Jr. MR#: [id number] : 1975 Admission Date: 07/14/2024 History of [...] patient has been previously admitted to the [facility] Vascular Surgery [...] TOVAR at [facility] MAIN OR Home Medications: Current Outpatient [...] follows commands Data Reviewed: Labs: Recent Labs 07/15/24 0045 07/14/24 1939 WBC 11.70* 8.69 HGB 12.1* 11.7* HCT 35.7* 34.5* PLATELET 322 313 Recent Labs 07/15/24 0045 07/14/24 1939 NA 132* 137 K 3.7 3.7 CL 99 101 CO2 20* 23 BUN 8* 6* CREATININE 0.80 0.53* GLUCOSE 309* 341* CALCIUM 8.5 8.6 No results for input(s): PROT, ALBUMIN, BILITOT, BILIDIR, ALKPHOS, AST, ALT in the last 72 hours. Recent Labs 07/14/24 1941 LACTATEVEN 1.1 No results for input(s): PHART, JMA0RSE, PO2ART, PXQ4MZB in the last 72 hours. Studies: No [...] Dejah Marshall MD 07/15/2024 Vascular Surgery Service p.[phone] documented in this encounter Nursing Notes * Anita Hughes, RN - 07/19/2024 11:21 AM EDT 1107: [...] T2. Has trouble getting to appointments at [facility] due to long drive. Decreased cap refill L left with streaking and decreased pulses. Lactate 3.2. Glucose 630. Given 10u of regular insulin, 500ml NS, 2g Cefepime, 1.5 vanc. 20g L AC. Vital Signs: Pulse: 97 B/P: 138/94 Resp: RA SPO2: 97% O2 LPM: RA GCS: 15 BGL: Temp: 36.8c Transporting Service: [place] Time of Departure: 1650 ETA: 1800 documented [...] MEDICARE Payor: [employer] MANAGED MEDICARE / Plan: [employer] MANA[employer]ED MEDICARE PPO / Product Type: *No Product type* / Secondary Insurance: N/A Prescription Coverage: Yes This plan was formulated with input from patient and team. All are in agreement with plan. IMM on shared list for RS to deliver. Phu Kennedy DIETARY SERVICES MANAGER tool polishing machine operator [phone] * Plan of Care - Carlos Enrique [...] Implemented as Appropriate) Flowsheets (Taken 07/20/2024 165) Plan of Care Reviewed With: patient Progress: [...] Intervention: Optimize Tissue Perfusion Flowsheets (Taken 07/20/2024 1351) Body Position: (boosted) position changed independently Problem: [...] patient has been previously admitted to the [facility] Vascular Surgery [...] No Patient is insured through: Primary Insurance: [employer] MANAGED MEDICARE Payor: [employer] MEDICARE / Plan: [employer] MANA[employer]ED MEDICARE PPO / Product Type: *No [...] Jones MD - 07/19/2024 10:11 AM EDT [facility] Operative Note Patient Name: Geovanna Dixon Jr. : [id number] MR#: [id number] Case Date: 07/19/2024 Surgeon: Surgeons and Role: [...] 0 BMs this shift. 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 Pt ambulated to the restroom overnight with [...] Intervention: Prevent Skin Injury Flowsheets (Taken 07/18/2024 135) Body Position: position changed independently Intervention: Prevent and Manage VTE (Venous Thromboembolism) Risk Flowsheets (Taken 07/18/20241352) VTE Prevention/Management: anticoagulant therapy Goal: Optimal Comfort and Wellbeing Outcome: Ongoing (Interventions Implemented as Appropriate) Intervention: Provide Person-Centered Care Flowsheets (Taken 07/18/2024 135) Trust Relationship/Rapport: care explained choices provided Goal: Readiness for Transition of Care Outcome: Ongoing (Interventions Implemented as Appropriate) Problem: Pain Acute Goal: Acceptable Pain Control and Functional Ability Outcome: Ongoing (Interventions Implemented as Appropriate) Intervention: Develop Pain Management Plan Flowsheets (Taken 07/18/2024 135) Pain Management Interventions: care clustered pain management plan reviewed with patient/caregiver position adjusted pillow support provided Intervention: Prevent or Manage Pain Flowsheets (Taken 07/18/2024 135) Medication Review/Management: medications reviewed Intervention: Optimize Psychosocial Wellbeing Flowsheets (Taken 07/18/20241352) Diversional Activities: television Spiritual Activities Assistance: affirmation [...] have. Alternately, during off-hours you may call [phone] to contact a pharmacist. * Plan of [...] patient has been previously admitted to the [facility] Vascular Surgery [...] TOVAR at [facility] MAIN OR Active Non-Hospital Problems Diagnosis [...] only Total Minutes, Occupational Therapy: 23 (evaluation ([id number])) OT Evaluation Code Rationale: Diagnosis & Pertinent Co-Morbidities affecting Plan of Care: see PMHx Occupational Profile & Client History: Brief Expanded Extensive X Assessment of Occupational Performance: 1-3 performance deficits X 3-5 performance deficits 5 + performance deficits Clinical Decision Making: Low Moderate High X Clinical decision making of low complexity using standardized patient assessment instrument and measurable assessment of functional outcome. Pager: [phone] Camille Holloway OT 07/17/2024 Occupational Therapy Rehabilitation [...] receiving care in [place] must abide by [place] law. The hierarchy [...] (i) The agent with financial power of [id number] tank crewman or a conservator appointed in accordance with [...] homeless or living in a usp (including now)?: No In the past 12 months has the [employer], or [employer] threatened to shut off services in your [...] DME: none Home Address confirmed as: [address], [place], [place] Social & Family Supports: All names [...] points: Addiction likely Other Pertinent/Service Specific Information: head strength and conditioning coach to see patient. Hx of cocaine use Health/Prescription Coverage: Primary nsurance: [employer]ED MEDICARE Payor: Mochila MEDICARE / Plan: [employer] MEDICARE PPO / Product Type: *No Product type* / Secondary Insurance: N/A ONLY if patient has Medicare A&B - Does this patient have secondary insurance?: No ; Why not?: Managed Medicare Prescription Coverage: Yes Preferred Pharmacy: [facility] - [place], [place] - [address] [facility] [address] [facility] [address] [facility] - [place], [place] - [address] [facility] [address] [facility] [id number] Status: Patient is a : No Primary [...] dry andstable, no open areas, no drainage. Albert Lea with povidone- iodine daily and leave open [...] or the wound care team on pager [phone] with skin and wound care concerns or questions. * Consult Note - Cynthia Carreon - 07/17/2024 11:00 AM EDT PT sleeping RC will return. * Consult Note - Pj, Angel Flores MD - 07/17/2024 8:52 AM EDT Images from the original note were not included. [facility] Cardi[facility] [id number] CARDIOLOGY CONSULT NOTE Date of Consultation: 07/17/2024 [...] for limb ischemia who was transferred to [facility] for vascular [...] patient has been previously admitted to the [facility] Vascular Surgery [...] Surgical Unit Level 4 Wing D at [facility] ED to Hosp-Admission (Discharged) from 05/28/2024 in Surgical Unit Level 4 Wing D at [facility] Weight 99.8 kg (220 lb) [...] concern for limb ischemia [facility]. Recent admit 05/2024 for short segment left popliteal occlusion; he was treated with a heparin drip and antibiotics for cellulitis with improvement. He was discharged on Xarelto 2.5mg BID, aspirin and short course of Augmentin with instructions to be seen in [address] [facility], which he did not show for the [...] of an occluded SVG-RPDA graft with a AUDIT DIRECTOR of his right coronary artery. He has [...] serviceif any questions or concerns arise. Angel Oilva MD, [facility] Staff [employer] Route Driver * Plan of Care - Lauren Mitchell [...] review of intermodal customer service diabetes care. Diabetes History: Geovanna Dixon Jr. [...] he will need outpatient follow up at [facility] endocrine clinic. He lives in [facility], but notes he has a truck [...] primary team (vascular surgery). Dayanara Grover PGY-5 [facility] Endocrinology Associated [...] seen eye doctor in years, his triglycerides [id number] was very high, needs recheck and aggressive [...] 1:00 PM EST Appointment XRay at [address] [place] [phone] Isabela Hayward APRN [facility] [place] [address] 11/09/2024 1:30 PM EST Office [place] [address] Isabela Hayward APRN [facility] [place] [address] 11/10/2024 10:00 AM EST Office [place] [address] Dai Whitman APRN 11/21/2024 2:15 PM EST Office [place] [address] Dayanara Grover MD [facility] [place] [address] documented as of this encounter Procedures Procedure [...] 49 AM EDT Amputation Toe, Mt-P Jt ([id number]) 07/19/2024 8:57 AM EDT peripheral artery disease [...] - 199 mg/dL 07/21/2024 3:44 PM EDT [facility] Comment:Supplemental ranges: <140 mg/dL before meals <180 mg/dL all other times of the day. Blood CAPILLARY BLOOD / Unknown 07/21/2024 3:43 PM EDT 07/21/2024 3:44 PM EDT Thony Garcia MD POINT OF CARE TEST O RDERABLES [facility] [place] [address] * (ABNORMAL) POC, GLUCOSE (07/21/2024 12:18 PM EDT) Glucometer, POC 247(H) 65 - 199 mg/dL 07/21/2024 12:20 PM EDT [facility] Comment:Supplemental ranges: <140 mg/dL before meals <180 mg/dL all other times of the day. Blood CAPILLARY BLOOD / Unknown 07/21/2024 12:18 PM EDT 07/21/2024 12:20 PM EDT Thony Garcia MD POINT OF CARE TEST O GILDA [facility] [place] [address] * POC, GLUCOSE (07/21/2024 8:37 AM EDT) Glucometer, POC 163 65 - 199 mg/dL 07/21/2024 8:38 AM EDT [facility] Comment:Supplemental ranges: <140 mg/dL before meals <180 mg/dL all other times of the day. Blood CAPILLARY BLOOD / Unknown 07/21/2024 8:37 AM EDT 07/21/2024 8:38 AM EDT Thony Garcia MD POINT OF CARE TEST O RDERABLES [facility] [place] [address] * (ABNORMAL) Basic Metabolic Panel (07/21/2024 5:55 AM EDT) Glucose 172 65 - 199 mg/dL 07/21/2024 6:45 AM EDT [facility] Comment:Glucose Concentratio n >=200 mg/dL plus symptoms is consistent with Diabetes Mellitus. Blood Urea Nitrogen 12 10 - 20 mg/dL 07/21/2024 6:45 AM EDT [facility] Creatinine 0.55(L) 0.80 - 1.50 mg/dL 07/21/2024 6:45 AM [facility] Sodium 138 135 - 145 mMol/L 07/21/2024 6:45 AM [facility] Potassium 4.1 3.5 - 5.0 mMol/L 07/21/2024 6:[facility] Chloride 103 98 - 107 mMol/L 07/21/2024 6:45 AM [facility] Carbon Dioxide 23 22 - 31 mMol/L 07/21/2024 6:45 AM [facility] Anion Gap 12 5 - 15 mMol/L 07/21/2024 6:45 AM [facility] Calcium 9.4 8.5 - 10.5 mg/dL 07/21/2024 6:45 [facility] Est Glomerular Filtration Rate - Male 121 mL/min/1. 73 m?? 07/21/2024 6:45 AM [facility] Comment: This patient's estimated [...] AM EDT Thony Garcia MD CHEMISTRY ORDERABLES [facility] [place] [address] * (ABNORMAL) CBC (with Diff) (07/21/2024 5:55 AM EDT) White Blood Cell 10.11(H) 4.00 - 9.50 x10(3)/mc L 07/21/2024 6:17 AM EDT [facility] Red Blood Cell 4.52(L) 4.58 - 5.54 x10(6)/mc L 07/21/2024 6:17 AM EDT [facility] Hemoglobin 13.2(L) 13.7 - 16.5 g/dL 07/21/2024 6:17 AM [facility] Hematocrit 39.7(L) 40.5 - 48.5 % 07/21/2024 6:17 AM T [facility] Mean Cell Volume 87.8 82.9 - 93.1 fL 07/21/2024 6:17 AM EDT [facility] Mean Cell Hemoglobin 29.2 27.5 - 32.1 pg 07/21/2024 6:17 AM [facility] Mean Cell Hemoglobin Concentration 33.2 32.0 - 35.7 g/dL 07/21/2024 6:17 AM T [facility] Platelet 405(H) 145 - 357 x10(3)/mc L 07/21/2024 6:17 [facility] Mean Platelet Volume 9.3 7.6 - 12.9 fL 07/21/2024 6:17 AM [facility] RDW Standard Deviation 42.2 36.0 - 45.0 fL 07/21/2024 6:17 AM [facility] RDW coefficient of variation 13.2 11.4 - 13.8 % 07/21/2024 6:17 AM [facility] NRBC% auto 0.0 % 07/21/2024 6:17 AM [facility] NRBC Absolute 0.00 0.00 - 0.00 x10(3)/mc L 07/21/2024 6:17 AM [facility] Neutrophil % 64.5 % 07/21/2024 6:17 AM [facility] Neutrophil Absolute (ANC) - Automated 6.52(H) 1.70 - 6.10 x10(3)/mc L 07/21/2024 6:17 AM [facility] Lymph % 24.3 % 07/21/2024 6:17 AM [facility] Lymph Absolute 2.46 0.90 - 3.20 x10(3)/mc L 07/21/2024 6:17 AM [facility] Monocyte % 8.4 % 07/21/2024 6:17 AM [facility] Monocyte Absolute 0.85 0.30 - 0.90 x10(3)/mc L 07/21/2024 6:17 AM [facility] Eos % 1.6 % 07/21/2024 6:17 AM [facility] Eos Absolute 0.16 0.00 - 0.40 x10(3)/mc L 07/21/2024 6:17 AM [facility] Basophil % 0.7 % 07/21/2024 6:17 AM [facility] Baso Absolute 0.07 0.00 - 0.10 x10(3)/mc L 07/21/2024 6:17 AM [facility] Immature Gran % 0.5 % 6:17 AM EDT [facility] Immature Gran Absolute 0.05(H) 0.00 - 0.04 x10(3)/mc L 07/21/2024 6:17 AM EDT [facility] Blood VENOUS BLOOD SPECIMEN / Unknown IP Care Team Draw / Unknown 07/21/2024 5:55 AM EDT 07/21/2024 6:13 AM EDT Thony Garcia MD HEMATOLOGY ORDERABLE S [facility] [place] [address] * Phosphorus (07/21/2024 5:55 AM EDT) Phosphorus 3.9 2.5 - 4.5 mg/dL 07/21/2024 6:45 AM EDT [facility] Blood VENOUS BLOOD SPECIMEN / Unknown IP Care Team Draw / Unknown 07/21/2024 5:55 AM EDT 07/21/2024 6:13 AM EDT Thony Garcia MD CHEMISTRY ORDERABLES [facility] [place] [address] * Magnesium (07/21/2024 5:55 AM EDT) Magnesium 0.82 0.69 - 1.07 mMol/L 07/21/2024 6:45 AM EDT [facility] Blood VENOUS BLOOD SPECIMEN / Unknown IP Care Team Draw / Unknown 07/21/2024 5:55 AM EDT 07/21/2024 6:13 AM EDT Thony Garcia MD CHEMISTRY ORDERABLES [facility] [place] [address] * POC, GLUCOSE (07/21/2024 3:57 AM EDT) Glucometer, POC 163 65 - 199 mg/dL 07/21/2024 4:01 AM EDT [facility] Comment:Supplemental ranges: <140 mg/dL before meals <180 mg/dL all other times of the day. Blood CAPILLARY BLOOD / Unknown 07/21/2024 3:57 AM EDT 07/21/2024 4:01 AM EDT Thony Garcia MD POINT OF CARE TEST O RDERAHERNANDEZ Performing Organization Address City/[facility] Co de Phone Number [facility] [place] [address] * POC, GLUCOSE (07/20/2024 11:54 PM EDT) Glucometer, POC 190 65 - 199 mg/dL 07/20/2024 11:58 PM EDT [facility] Comment:Supplemental ranges: <140 mg/dL before meals <180 mg/dL all other times of the day. Blood CAPILLARY BLOOD / Unknown 07/20/2024 11:54 PM EDT 07/20/2024 11:58 PM EDT Thony Garcia MD POINT OF CARE TEST O GILDA Performing Organization Address [facility]/ZIP Co de Phone Number [facility] [place] [address] * POC, GLUCOSE (07/20/2024 8:17 PM EDT) Glucometer, POC 166 65 - 199 mg/dL 07/20/2024 8:17 PM EDT [facility] Comment:Supplemental ranges: <140 mg/dL before meals <180 mg/dL all other times of the day. Blood CAPILLARY BLOOD / Unknown 07/20/2024 8:17 PM EDT 07/20/2024 8:18 PM EDT Thony Garcia MD POINT OF CARE TEST O RDERAHERNANDEZ [facility] [place] [address] * (ABNORMAL) POC, GLUCOSE (07/20/2024 3:51 PM EDT) Glucometer, POC 218(H) 65 - 199 mg/dL 07/20/2024 3:51 PM EDT [facility] Comment:Supplemental ranges: <140 mg/dL before meals <180 mg/dL all other times of the day. Blood CAPILLARY BLOOD / Unknown 07/20/2024 3:51 PM EDT 07/20/2024 3:51 PM EDT Thony Garcia MD POINT OF CARE TEST O GILDA Performing Organization Address [facility]/ZIP Co de Phone Number [facility] [place] [address] * POC, GLUCOSE (07/20/2024 10:55 AM EDT) Glucometer, POC 96 65 - 199 mg/dL 07/20/2024 10:56 AM EDT [facility] Comment:Supplemental ranges: <140 mg/dL before meals <180 mg/dL all other times of the day. Blood CAPILLARY BLOOD / Unknown 07/20/2024 10:55 AM EDT 07/20/2024 10:56 AM EDT Thony Garcia MD POINT OF CARE TEST O GILDA Performing Organization Address City/[facility]/ZIP Co de Phone Number [facility] [place] [address] * Vein Map Arm, Bilateral (07/20/2024 10:48 AM EDT) VB Text Report Department: Vascular Surgery Lab Patient: [id number] (GEOVANNA DIXON) CPT: 28630 Referring Physician: THONY GARCIA ?? Indications: Patient [...] patient has been previously admitted to the [facility] Vascular Surgery [...] the sedation RN. Anabel Finney MD, MPH [facility] Vascular Surgery ? Thony Garcia MD IMG IR ORDERABLES * POC, GLUCOSE (07/20/2024 8:12 AM EDT) [facility] Signature Glucometer, POC 119 65 - 199 mg/dL 07/20/2024 8:12 AM EDT [facility] Comment:Supplemental ranges: <140 mg/dL before meals <180 mg/dL all other times of the day. Blood CAPILLARY BLOOD / Unknown 07/20/2024 8:12 AM EDT 07/20/2024 8:12 AM EDT Thony Garcia MD POINT OF CARE TEST O RDERABLES [facility] [place] [address] * (ABNORMAL) CBC (with Diff) (07/20/2024 3:42 AM EDT) White Blood Cell 16.61(H) 4.00 - 9.50 x10(3)/mc L 07/20/2024 4:23 AM EDT [facility] Red Blood Cell 4.44(L) 4.58 - 5.54 x10(6)/mc L 07/20/2024 4:23 AM EDT [facility] Hemoglobin 13.0(L) 13.7 - 16.5 g/dL 07/20/2024 4:23 AM EDT [facility] Hematocrit 39.2(L) 40.5 - 48.5 % 07/20/2024 4:23 AM EDT [facility] Mean Cell Volume 88.3 82.9 - 93.1 fL 07/20/2024 4:23 AM EDT [facility] Mean Cell Hemoglobin 29.3 27.5 - 32.1 pg 07/20/2024 4:23 [facility] Mean Cell Hemoglobin Concentration 33.2 32.0 - 35.7 g/dL 07/20/2024 4:23 AM [facility] Platelet 458(H) 145 - 357 x10(3)/mc L 07/20/2024 4:23 AM EDT [facility] Mean Platelet Volume 9.5 7.6 - 12.9 fL 07/20/2024 4:23 AM [facility] RDW Standard Deviation 42.5 36.0 - 45.0 fL 07/20/2024 4:23 AM [facility] RDW coefficient of variation 13.2 11.4 - 13.8 % 07/20/2024 4:23 AM EDT [facility] NRBC% auto 0.0 % 07/20/2024 4:23 AM [facility] NRBC Absolute 0.00 0.00 - 0.00 x10(3)/mc L 07/20/2024 4:23 AM [facility] Neutrophil % 74.2 % 07/20/2024 4:23 AM [facility] Neutrophil Absolute (ANC) - Automated 12.32(H) 1.70 - 6.10 x10(3)/mc L 07/20/2024 4:23 AM [facility] Lymph % 16.5 % 07/20/2024 4:23 AM [facility] Lymph Absolute 2.74 0.90 - 3.20 x10(3)/mc L 07/20/2024 4:23 AM [facility] Monocyte % 7.5 % 07/20/2024 4:23 AM [facility] Monocyte Absolute 1.25(H) 0.30 - 0.90 x10(3)/mc L 07/20/2024 4:23 AM [facility] Eos % 0.8 % 07/20/2024 4:23 AM [facility] Eos Absolute 0.14 0.00 - 0.40 x10(3)/mc L 07/20/2024 4:23 AM [facility] Basophil % 0.4 % 07/20/2024 4:23 AM [facility] Baso Absolute 0.06 0.00 - 0.10 x10(3)/mc L 07/20/2024 4:23 AM [facility] Immature Gran % 0.6 % 4:23 AM [facility] Immature Gran Absolute 0.10(H) 0.00 - 0.04 x10(3)/mc L 07/20/2024 4:23 AM [facility] Blood VENOUS BLOOD SPECIMEN / Unknown IP Care Team Draw / Unknown 07/20/2024 3:42 AM EDT 07/20/2024 4:09 AM EDT Thony Garcia MD HEMATOLOGY ORDERABLE S [facility] [place] [address] * (ABNORMAL) POC, GLUCOSE (07/20/2024 3:41 AM EDT) Glucometer, POC 204(H) 65 - 199 mg/dL 07/20/2024 3:41 AM EDT [facility] Comment:Supplemental ranges: <140 mg/dL before meals <180 mg/dL all other times of the day. Blood CAPILLARY BLOOD / Unknown 07/20/2024 3:41 AM EDT 07/20/2024 3:41 AM EDT Thony Garcia MD POINT OF CARE TEST O RDERABLES Performing Organization Address City/[facility]/ZIP Co de Phone Number [facility] [place] [address] * (ABNORMAL) Basic Metabolic Panel (07/20/2024 3:41 AM EDT) Glucose 209(H) 65 - 199 mg/dL 07/20/2024 5:00 AM EDT [facility] Comment:Glucose Concentratio n >=200 mg/dL plus symptoms is consistent with Diabetes Mellitus. Blood Urea Nitrogen 12 10 - 20 mg/dL 07/20/2024 5:00 AM EDT [facility] Creatinine 0.53(L) 0.80 - 1.50 mg/dL 07/20/2024 5:00 AM EDT [facility] Sodium 135 135 - 145 mMol/L 07/20/2024 5:00 AM EDT [facility] Potassium 4.2 3.5 - 5.0 mMol/L 07/20/2024 5:00 AM EDT [facility] Chloride 102 98 - 107 mMol/L 07/20/2024 5:00 AM EDT [facility] Carbon Dioxide 21(L) 22 - 31 mMol/L 07/20/2024 5:00 AM EDT [facility] Anion Gap 12 5 - 15 mMol/L 07/20/2024 5:00 AM EDT [facility] Calcium 9.4 8.5 - 10.5 mg/dL 07/20/2024 5:00 AM EDT [facility] Est Glomerular Filtration Rate - Male 122 mL/min/1. 73 m?? 07/20/2024 5:00 AM EDT [facility] Comment: This patient's estimated [...] AM EDT Thony Garcia MD CHEMISTRY ORDERABLES [facility] [place] [address] * Phosphorus (07/20/2024 3:41 AM EDT) Phosphorus 3.4 2.5 - 4.5 mg/dL 07/20/2024 4:40 AM EDT [facility] Blood VENOUS BLOOD SPECIMEN / Unknown IP Care Team Draw / Unknown 07/20/2024 3:41 AM EDT 07/20/2024 4:09 AM EDT Thony Garcia MD CHEMISTRY ORDERABLES [facility] [place] [address] * Magnesium (07/20/2024 3:41 AM EDT) Magnesium 0.90 0.69 - 1.07 mMol/L 07/20/2024 4:40 AM EDT [facility] Blood VENOUS BLOOD SPECIMEN / Unknown IP Care Team Draw / Unknown 07/20/2024 3:41 AM EDT 07/20/2024 4:09 AM EDT Thony Garcia MD CHEMISTRY ORDERABLES Performing Organization Address City/[facility]/ZIP Co de Phone Number [facility] [place] [address] * (ABNORMAL) POC, GLUCOSE (07/20/2024 12:56 AM EDT) Glucometer, POC 342(H) 65 - 199 mg/dL 07/20/2024 12:58 AM EDT [facility] Comment:Supplemental ranges: <140 mg/dL before meals <180 mg/dL all other times of the day. Blood CAPILLARY BLOOD / Unknown 07/20/2024 12:56 AM EDT 07/20/2024 12:58 AM EDT Thony Garcia MD POINT OF CARE TEST O RDERABLES [facility] [place] [address] * (ABNORMAL) POC, GLUCOSE (07/19/2024 11:04 PM EDT) Glucometer, POC 296(H) 65 - 199 mg/dL 07/19/2024 11:05 PM EDT [facility] Comment:Supplemental ranges: <140 mg/dL before meals <180 mg/dL all other times of the day. Blood CAPILLARY BLOOD / Unknown 07/19/2024 11:04 PM EDT 07/19/2024 11:05 PM EDT Thony Garcia MD POINT OF CARE TEST O RDERABLES [facility] [place] [address] * (ABNORMAL) POC, GLUCOSE (07/19/2024 7:38 PM EDT) Glucometer, POC 251(H) 65 - 199 mg/dL 07/19/2024 7:39 PM EDT [facility] Comment:Supplemental ranges: <140 mg/dL before meals <180 mg/dL all other times of the day. Blood CAPILLARY BLOOD / Unknown 07/19/2024 7:38 PM EDT 07/19/2024 7:39 PM EDT Thony Garcia MD POINT OF CARE TEST O RDERAHERNANDEZ Performing Organization Address [facility]/ZIP Co de Phone Number [facility] [place] [address] * POC, GLUCOSE (07/19/2024 4:48 PM EDT) Glucometer, POC 171 65 - 199 mg/dL 07/19/2024 4:49 PM EDT [facility] Comment:Supplemental ranges: <140 mg/dL before meals <180 mg/dL all other times of the day. Blood CAPILLARY BLOOD / Unknown 07/19/2024 4:48 PM EDT 07/19/2024 4:49 PM EDT Thony Garcia MD POINT OF CARE TEST O RDERAHERNANDEZ [facility] [place] [address] * POC, GLUCOSE (07/19/2024 12:21 PM EDT) Glucometer, POC 143 65 - 199 mg/dL 07/19/2024 12:22 PM EDT [facility] Comment:Supplemental ranges: <140 mg/dL before meals <180 mg/dL all other times of the day. Blood CAPILLARY BLOOD / Unknown 07/19/2024 12:21 PM EDT 07/19/2024 12:22 PM EDT Thony Garcia MD POINT OF CARE TEST O RDERABLES Performing Organization Address [facility]/ZIP Co de Phone Number [facility] [place] [address] * POC, GLUCOSE (07/19/2024 11:24 AM EDT) Glucometer, POC 111 65 - 199 mg/dL 07/19/2024 11:24 AM EDT [facility] Comment:Supplemental ranges: <140 mg/dL before meals <180 mg/dL all other times of the day. Blood CAPILLARY BLOOD / Unknown 07/19/2024 11:24 AM EDT 07/19/2024 11:24 AM EDT Thony Garcia MD POINT OF CARE TEST O RDERABLES Performing Organization Address [facility]/ZIP Co de Phone Number [facility] [place] [address] * Anaerobic Culture (07/19/2024 9:51 AM EDT) Anaerobic Culture No anaerobic organisms isolated 07/23/2024 3:24 PM EDT [facility] Bone STRUCTURE OF TOE OF LEFT FOOT / Unknown 07/19/2024 9:51 AM EDT Comment:PERIPHERAL ARTERY DI SEASE Thony Garcia MD MICROBIOLOGY - GENER AL ORDERABLES Performing Organization Address City/[facility]/ZIP Co de Phone Number [facility] [place] [address] * Bone Culture (07/19/2024 9:51 AM EDT) Bone Culture No growth 07/23/2024 12:36 PM EDT [facility] Gram Stain No neutrophils seen 07/23/2024 12:36 PM EDT [facility] Gram Stain No microorganisms seen 07/23/2024 12:36 PM EDT [facility] Bone STRUCTURE OF TOE OF LEFT FOOT / Unknown 07/19/2024 9:51 AM EDT Comment:PERIPHERAL ARTERY DI SEASE Thony Garcia MD MICROBIOLOGY - GENER AL ORDERABLES Performing Organization Address City/[facility]/ZIP Co de Phone Number [facility] [place] [address] * AFB culture (07/19/2024 9:51 AM EDT) Acid Fast Bacilli Culture No acid fast bacilli isolated at 8 weeks. 09/13/2024 11:02 AM EST [facility] Bone STRUCTURE OF TOE OF LEFT FOOT / Unknown 07/19/2024 9:51 AM EDT 07/19/2024 10:08 AM EDT Comment:PERIPHERAL ARTERY DI SEASE Thony Garcia MD MICROBIOLOGY - GENER AL ORDERABLES Performing Organization Address [facility] Co de Phone Number [facility] [place] [address] * Fungus culture (07/19/2024 9:51 AM EDT) Fungus Culture No fungus isolated 08/22/2024 9:08 AM EDT [facility] Bone STRUCTURE OF TOE OF LEFT FOOT / Unknown 07/19/2024 9:51 AM EDT 07/19/2024 10:08 AM EDT Comment:PERIPHERAL ARTERY DI SEASE Thony Garcia MD MICROBIOLOGY - GENER AL ORDERABLES Performing Organization Address City/[facility] Co de Phone Number [facility] [place] [address] * Surgical Pathology (07/19/2024 9:49 AM EDT) Case Report Surgical Pathology Report ? Case: [id number] ? Authorizing Provider: ??Thony Garcia MD ?Collected: ? 07/19/2024 0949 ? Ordering Location: ? Main Operating [facility] ?? Received: ?07/19/2024 1009 ? [facility] ? Hospital ? Pathologist: ? Benjamin Shen MD ? Specimen: ?Toe(s), Left Foot, LEFT 2ND TOE (PERM) ? 07/26/2024 1:24 PM EDT [facility] Final Diagnosis A - Left second toe; amputated through the proximal phalanx: - Gangrenous necrosis; amputation margin appears uninvolved. - Largely detached nail. 07/26/2024 1:24 PM EDT [facility] Clinical Information PROVIDED: PERIPHERAL ARTERY DISEASE. 07/26/2024 1:24 PM EDT [facility] Gross Description A. Toe(s), [...] Sections/Process ing: Blocks submitted for decalcification: A1-A2. [employer] sections in 2 cassettes as follows: A1-A2: Complete longitudinal section of digit cmk 07/26/2024 1:24 PM EDT [facility] Result Note Routine 07/26/2024 1:24 PM EDT [facility] Tissue STRUCTURE OF TOE OF LEFT FOOT / Unknown 07/19/2024 9:49 AM EDT 07/19/2024 10:09 AM EDT Comment:PERIPHERAL ARTERY DI SEASE Thony Garcia MD PATHOLOGY/CYTOLOGY O RDERABLES [facility] [place] [address] * POC, GLUCOSE (07/19/2024 7:21 AM EDT) Glucometer, POC 195 65 - 199 mg/dL 07/19/2024 7:22 AM EDT [facility] Comment:Supplemental ranges: <140 mg/dL before meals <180 mg/dL all other times of the day. Blood CAPILLARY BLOOD / Unknown 07/19/2024 7:21 AM EDT 07/19/2024 7:22 AM EDT Thony Garcia MD POINT OF CARE TEST O RDERABLES Performing Organization Address [facility]/ZIP Co de Phone Number [facility] [place] [address] * Heparin (unfractionated) Level (07/19/2024 6:29 AM EDT) UF Heparin 0.42 IU/mL 07/19/2024 6:44 AM EDT [facility] Comment: Heparin (anti-Xa) levels [...] Address City/[facility]/ZIP Co de Phone Number [facility] [place] [address] * POC, GLUCOSE (07/19/2024 4:24 AM EDT) Glucometer, POC 118 65 - 199 mg/dL 07/19/2024 4:24 AM EDT [facility] Comment:Supplemental ranges: <140 mg/dL before meals <180 mg/dL all other times of the day. Blood CAPILLARY BLOOD / Unknown 07/19/2024 4:24 AM EDT 07/19/2024 4:24 AM EDT Thony Garcia MD POINT OF CARE TEST O RDERABLES [facility] [place] [address] * (ABNORMAL) Basic Metabolic Panel (07/19/2024 3:45 AM EDT) [facility] Signature Glucose 117 65 - 199 mg/dL 07/19/2024 4:40 AM EDT [facility] Comment:Glucose Concentratio n >=200 mg/dL plus symptoms is consistent with Diabetes Mellitus. Blood Urea Nitrogen 7(L) 10 - 20 mg/dL 07/19/2024 4:40 AM [facility] Creatinine 0.56(L) 0.80 - 1.50 mg/dL 07/19/2024 4:40 AM [facility] Sodium 138 135 - 145 mMol/L 07/19/2024 4:40 AM [facility] Potassium 3.9 3.5 - 5.0 mMol/L 07/19/2024 4:40 AM [facility] Chloride 103 98 - 107 mMol/L 07/19/2024 4:40 AM [facility] Carbon Dioxide 23 22 - 31 mMol/L 07/19/2024 4:40 AM [facility] Anion Gap 12 5 - 15 mMol/L 07/19/2024 4:40 AM [facility] Calcium 9.6 8.5 - 10.5 mg/dL 07/19/2024 4:40 AM [facility] Est Glomerular Filtration Rate - Male 120 mL/min/1. 73 m?? 07/19/2024 4:40 AM EDT [facility] Comment: This patient's estimated [...] Garcia MD CHEMISTRY ORDERABLES Performing Organization Address City/State/[facility] Co de Phone Number [facility] [place] [address] * (ABNORMAL) CBC (with Diff) (07/19/2024 3:45 AM EDT) White Blood Cell 12.45(H) 4.00 - 9.50 x10(3)/mc L 07/19/2024 4:09 AM EDT [facility] Red Blood Cell 4.72 4.58 - 5.54 x10(6)/mc L 07/19/2024 4:09 AM EDT [facility] Hemoglobin 13.6(L) 13.7 - 16.5 g/dL 07/19/2024 4:09 [facility] Hematocrit 41.0 40.5 - 48.5 % 07/19/2024 4:09 [facility] Mean Cell Volume 86.9 82.9 - 93.1 fL 07/19/2024 4:09 AM [facility] Mean Cell Hemoglobin 28.8 27.5 - 32.1 pg 07/19/2024 4:09 AM [facility] Mean Cell Hemoglobin Concentration 33.2 32.0 - 35.7 g/dL 07/19/2024 4:09 AM [facility] Platelet 421(H) 145 - 357 x10(3)/mc L 07/19/2024 4:09 AM [facility] Mean Platelet Volume 9.4 7.6 - 12.9 fL 07/19/2024 4:09 AM [facility] RDW Standard Deviation 41.3 36.0 - 45.0 fL 07/19/2024 4:09 AM [facility] RDW coefficient of variation 13.1 11.4 - 13.8 % 07/19/2024 4:09 AM [facility] NRBC% auto 0.0 % 07/19/2024 4:09 AM [facility] NRBC Absolute 0.00 0.00 - 0.00 x10(3)/mc L 07/19/2024 4:09 AM [facility] Neutrophil % 66.6 % 07/19/2024 4:09 AM [facility] Neutrophil Absolute (ANC) - Automated 8.29(H) 1.70 - 6.10 x10(3)/mc L 07/19/2024 4:09 AM [facility] Lymph % 22.6 % 07/19/2024 4:09 AM [facility] Lymph Absolute 2.81 0.90 - 3.20 x10(3)/mc L 07/19/2024 4:09 AM [facility] Monocyte % 7.5 % 07/19/2024 4:09 AM [facility] Monocyte Absolute 0.93(H) 0.30 - 0.90 x10(3)/mc L 07/19/2024 4:09 AM [facility] Eos % 1.9 % 07/19/2024 4:09 AM [facility] Eos Absolute 0.24 0.00 - 0.40 x10(3)/mc L 07/19/2024 4:09 AM EDT [facility] Basophil % 0.8 % 07/19/2024 4:09 AM EDT [facility] Baso Absolute 0.10 0.00 - 0.10 x10(3)/mc L 07/19/2024 4:09 AM EDT [facility] Immature Gran % 0.6 % 4:09 AM EDT [facility] Immature Gran Absolute 0.08(H) 0.00 - 0.04 x10(3)/mc L 07/19/2024 4:09 AM EDT [facility] Blood VENOUS BLOOD SPECIMEN / Unknown IP Care Team Draw / Unknown 07/19/2024 3:45 AM EDT 07/19/2024 4:00 AM EDT Thony Garcia MD HEMATOLOGY ORDERABLE S [facility] [place] [address] * Phosphorus (07/19/2024 3:45 AM EDT) Phosphorus 4.3 2.5 - 4.5 mg/dL 07/19/2024 4:40 AM EDT [facility] Blood VENOUS BLOOD SPECIMEN / Unknown IP Care Team Draw / Unknown 07/19/2024 3:45 AM EDT 07/19/2024 4:00 AM EDT Thony Garcia MD [place] [address] * Magnesium (07/19/2024 3:45 AM EDT) Magnesium 0.89 0.69 - 1.07 mMol/L 07/19/2024 4:40 AM EDT [facility] Blood VENOUS BLOOD SPECIMEN / Unknown IP Care Team Draw / Unknown 07/19/2024 3:45 AM EDT 07/19/2024 4:00 AM EDT Thony Garcia MD CHEMISTRY ORDERABLES Performing Organization Address City/[facility]/ZIP Co de Phone Number [facility] [place] [address] * POC, GLUCOSE (07/19/2024 12:01 AM EDT) Glucometer, POC 186 65 - 199 mg/dL 07/19/2024 12:02 AM EDT [facility] Comment:Supplemental ranges: <140 mg/dL before meals <180 mg/dL all other times of the day. Blood CAPILLARY BLOOD / Unknown 07/19/2024 12:01 AM EDT 07/19/2024 12:02 AM EDT Thony Garcia MD POINT OF CARE TEST O GILDA Performing Organization Address [facility] Co de Phone Number [facility] [place] [address] * POC, GLUCOSE (07/18/2024 9:46 PM EDT) Glucometer, POC 185 65 - 199 mg/dL 07/18/2024 9:47 PM EDT [facility] Comment:Supplemental ranges: <140 mg/dL before meals <180 mg/dL all other times of the day. Blood CAPILLARY BLOOD / Unknown 07/18/2024 9:46 PM EDT 07/18/2024 9:47 PM EDT Thony Garcia MD POINT OF CARE TEST O GILDA Performing Organization Address City/[facility]/ZIP Co de Phone Number [facility] [place] [address] * POC, GLUCOSE (07/18/2024 3:20 PM EDT) Glucometer, POC 134 65 - 199 mg/dL 07/18/2024 3:20 PM EDT [facility] Comment:Supplemental ranges: <140 mg/dL before meals <180 mg/dL all other times of the day. Blood CAPILLARY BLOOD / Unknown 07/18/2024 3:20 PM EDT 07/18/2024 3:21 PM EDT Thony Garcia MD POINT OF CARE TEST O GILDA Performing Organization Address [facility] de Phone Number [facility] [place] [address] * (ABNORMAL) POC, GLUCOSE (07/18/2024 11:53 AM EDT) Glucometer, POC 244(H) 65 - 199 mg/dL 07/18/2024 11:53 AM EDT [facility] Comment:Supplemental ranges: <140 mg/dL before meals <180 mg/dL all other times of the day. Blood CAPILLARY BLOOD / Unknown 07/18/2024 11:53 AM EDT 07/18/2024 11:54 AM EDT Thony Garcia MD POINT OF CARE TEST O GILDA Performing Organization Address [facility] de Phone Number [facility] [place] [address] * Vancomycin Level, Random (07/18/2024 8:01 AM EDT) Vancomycin, Random 17.2 mg/L 2023 9:40 AM EDT [facility] Comment:This level is for de termination of the patient's vancomycin jhvc-[id number]-curve (AUC) value. Contact the inpatient pharmacy for interpretation. Blood VENOUS BLOOD SPECIMEN / Unknown IP Care Team Draw / Unknown 07/18/2024 8:01 AM EDT 07/18/2024 8:39 AM EDT Thony Garcia MD CHEMISTRY ORDERABLES Performing Organization Address [facility] Co de Phone Number [facility] [place] [address] * POC, GLUCOSE (07/18/2024 7:21 AM EDT) Glucometer, POC 177 65 - 199 mg/dL 07/18/2024 7:22 AM EDT [facility] Comment:Supplemental ranges: <140 mg/dL before meals <180 mg/dL all other times of the day. Blood CAPILLARY BLOOD / Unknown 07/18/2024 7:21 AM EDT 07/18/2024 7:22 AM EDT Thony Garcia MD POINT OF CARE TEST O RDERABLES [facility] [place] [address] * Heparin (unfractionated) Level (07/18/2024 3:33 AM EDT) UF Heparin 0.35 IU/mL 07/18/2024 4:42 AM EDT [facility] Comment: Heparin (anti-Xa) levels [...] EDT Thony Garcia MD HEMATOLOGY ORDERABLE S [facility] [place] [address] * (ABNORMAL) Basic Metabolic Panel (07/18/2024 3:33 AM EDT) Glucose 170 65 - 199 mg/dL 07/18/2024 4:50 AM EDT [facility] Comment:Glucose Concentratio n >=200 mg/dL plus symptoms is consistent with Diabetes Mellitus. Blood Urea Nitrogen 8(L) 10 - 20 mg/dL 07/18/2024 4:50 AM [facility] Creatinine 0.53(L) 0.80 - 1.50 mg/dL 07/18/2024 4:50 AM [facility] Sodium 136 135 - 145 mMol/L 07/18/2024 4:50 AM [facility] Potassium 4.3 3.5 - 5.0 mMol/L 07/18/2024 4:50 AM [facility] Chloride 101 98 - 107 mMol/L 07/18/2024 4:50 AM [facility] Carbon Dioxide 23 22 - 31 mMol/L 07/18/2024 4:50 AM [facility] Anion Gap 12 5 - 15 mMol/L 07/18/2024 4:50 AM [facility] Calcium 9.2 8.5 - 10.5 mg/dL 07/18/2024 4:50 AM [facility] Est Glomerular Filtration Rate - Male 122 mL/min/1. 73 m?? 07/18/2024 4:50 AM [facility] Comment: This patient's estimated [...] AM EDT Thony Garcia MD CHEMISTRY ORDERABLES [facility] [place] [address] * (ABNORMAL) CBC (with Diff) (07/18/2024 3:33 AM EDT) White Blood Cell 11.56(H) 4.00 - 9.50 x10(3)/mc L 07/18/2024 4:26 [facility] Red Blood Cell 4.55(L) 4.58 - 5.54 x10(6)/mc L 07/18/2024 4:26 AM [facility] Hemoglobin 13.4(L) 13.7 - 16.5 g/dL 07/18/2024 4:26 AM [facility] Hematocrit 40.2(L) 40.5 - 48.5 % 07/18/2024 4:26 AM [facility] Mean Cell Volume 88.4 82.9 - 93.1 fL 07/18/2024 4:26 AM [facility] Mean Cell Hemoglobin 29.5 27.5 - 32.1 pg 07/18/2024 4:26 AM [facility] Mean Cell Hemoglobin Concentration 33.3 32.0 - 35.7 g/dL 07/18/2024 4:26 AM [facility] Platelet 392(H) 145 - 357 x10(3)/mc L 07/18/2024 4:26 AM [facility] Mean Platelet Volume 10.2 7.6 - 12.9 fL 07/18/2024 4:26 AM [facility] RDW Standard Deviation 42.0 36.0 - 45.0 fL 07/18/2024 4:26 AM [facility] RDW coefficient of variation 13.1 11.4 - 13.8 % 07/18/2024 4:26 AM [facility] NRBC% auto 0.0 % 07/18/2024 4:26 AM [facility] NRBC Absolute 0.00 0.00 - 0.00 x10(3)/mc L 07/18/2024 4:26 AM [facility] Neutrophil % 68.4 % 07/18/2024 4:26 AM [facility] Neutrophil Absolute (ANC) - Automated 7.91(H) 1.70 - 6.10 x10(3)/mc L 07/18/2024 4:26 AM [facility] Lymph % 21.3 % 07/18/2024 4:26 AM [facility] Lymph Absolute 2.46 0.90 - 3.20 x10(3)/mc L 07/18/2024 4:26 AM [facility] Monocyte % 7.2 % 07/18/2024 4:26 AM [facility] Monocyte Absolute 0.83 0.30 - 0.90 x10(3)/mc L 07/18/2024 4:26 AM [facility] Eos % 1.7 % 07/18/2024 4:26 AM [facility] Eos Absolute 0.20 0.00 - 0.40 x10(3)/mc L 07/18/2024 4:26 AM [facility] Basophil % 0.8 % 07/18/2024 4:26 AM [facility] Baso Absolute 0.09 0.00 - 0.10 x10(3)/mc L 07/18/2024 4:26 AM [facility] Immature Gran % 0.6 % 4:26 AM EDT [facility] Immature Gran Absolute 0.07(H) 0.00 - 0.04 x10(3)/mc L 07/18/2024 4:26 AM EDT [facility] Blood VENOUS BLOOD SPECIMEN / Unknown IP Care Team Draw / Unknown 07/18/2024 3:33 AM EDT 07/18/2024 4:21 AM EDT Thony Garcia MD HEMATOLOGY ORDERABLE S [facility] [place] [address] * Phosphorus (07/18/2024 3:33 AM EDT) Phosphorus 3.7 2.5 - 4.5 mg/dL 07/18/2024 4:50 AM EDT [facility] Blood VENOUS BLOOD SPECIMEN / Unknown IP Care Team Draw / Unknown 07/18/2024 3:33 AM EDT 07/18/2024 4:21 AM EDT Thony Garcia MD CHEMISTRY ORDERABLES [facility] [place] [address] * Magnesium (07/18/2024 3:33 AM EDT) Magnesium 0.88 0.69 - 1.07 mMol/L 07/18/2024 4:50 AM EDT [facility] Blood VENOUS BLOOD SPECIMEN / Unknown IP Care Team Draw / Unknown 07/18/2024 3:33 AM EDT 07/18/2024 4:21 AM EDT Thony Garcia MD CHEMISTRY ORDERABLES [facility] [place] [address] * LDL Cholesterol, Direct (07/18/2024 3:33 AM EDT) LDL Cholesterol, Direct 65 mg/dL 07/18/2024 4:50 AM EDT [facility] Comment: Desirable: <100 mg/dL [...] AM EDT Thony Garcia MD CHEMISTRY ORDERABLES [facility] [place] [address] * HDL/Cholesterol Profile (07/18/2024 3:33 AM EDT) Cholesterol, Total 114 mg/dL 07/18/2024 4:50 AM EDT [facility] Comment: Desirable: < 200 mg/dL Borderline High: 200 - 239 mg/dL High: > or = 240 mg/dL HDL Cholesterol 38 mg/dL 4:50 AM EDT [facility] Comment:Males: High Risk: <4 0 mg/dL Non-HDL Cholesterol 76 mg/dL 07/18/2024 4:50 AM EDT [facility] Comment: Desirable: <130 mg/dL Above Desirable: 130-159 mg/dL Borderline High: 160-189 mg/dL High: 190-219 mg/dL Very High: > or = 220 mg/dL Blood VENOUS BLOOD SPECIMEN / Unknown IP Care Team Draw / Unknown 07/18/2024 3:33 AM EDT 07/18/2024 4:21 AM EDT [facility] - 07/18/2024 4:50 AM EDT [...] ACC/AHA Guidelines (most recently Johann et al. JACC 08/11/22): * For individuals with atherosclerotic cardiovascular [...] Garcia MD CHEMISTRY ORDERABLES Performing Organization Address [facility] Phone Number [facility] [place] [address] * (ABNORMAL) POC, GLUCOSE (07/18/2024 3:21 AM EDT) Glucometer, POC 200(H) 65 - 199 mg/dL 07/18/2024 3:22 AM EDT [facility] Comment:Supplemental ranges: <140 mg/dL before meals <180 mg/dL all other times of the day. Blood CAPILLARY BLOOD / Unknown 07/18/2024 3:21 AM EDT 07/18/2024 3:22 AM EDT Thony Garcia MD POINT OF CARE TEST O RDERABLES Performing Organization Address [facility] Phone Number [facility] [place] [address] * (ABNORMAL) POC, GLUCOSE (07/18/2024 12:44 AM EDT) Glucometer, POC 216(H) 65 - 199 mg/dL 07/18/2024 12:44 AM EDT [facility] Comment:Supplemental ranges: <140 mg/dL before meals <180 mg/dL all other times of the day. Blood CAPILLARY BLOOD / Unknown 07/18/2024 12:44 AM EDT 07/18/2024 12:44 AM EDT Thony Garcia MD POINT OF CARE TEST O RDERAHERNANDEZ Performing Organization Address [facility] de Phone Number [facility] [place] [address] * (ABNORMAL) POC, GLUCOSE (07/17/2024 9:02 PM EDT) Glucometer, POC 294(H) 65 - 199 mg/dL 07/17/2024 9:02 PM EDT [facility] Comment:Supplemental ranges: <140 mg/dL before meals <180 mg/dL all other times of the day. Blood CAPILLARY BLOOD / Unknown 07/17/2024 9:02 PM EDT 07/17/2024 9:03 PM EDT Thony Garcia MD POINT OF CARE TEST O DIMITRIERAHERNANDEZ [facility] [place] [address] * (ABNORMAL) POC, GLUCOSE (07/17/2024 4:07 PM EDT) Glucometer, POC 219(H) 65 - 199 mg/dL 07/17/2024 4:07 PM EDT [facility] Comment:Supplemental ranges: <140 mg/dL before meals <180 mg/dL all other times of the day. Blood CAPILLARY BLOOD / Unknown 07/17/2024 4:07 PM EDT 07/17/2024 4:07 PM EDT Thony Garcia MD POINT OF CARE TEST O GILDA [facility] [place] [address] * (ABNORMAL) POC, GLUCOSE (07/17/2024 11:31 AM EDT) Glucometer, POC 255(H) 65 - 199 mg/dL 07/17/2024 11:32 AM EDT [facility] Comment:Supplemental ranges: <140 mg/dL before meals <180 mg/dL all other times of the day. Blood CAPILLARY BLOOD / Unknown 07/17/2024 11:31 AM EDT 07/17/2024 11:32 AM EDT Thony Garcia MD POINT OF CARE TEST O GILDA Performing Organization Address [facility] Co de Phone Number [facility] [place] [address] * POC, GLUCOSE (07/17/2024 7:38 AM EDT) Glucometer, POC 112 65 - 199 mg/dL 07/17/2024 7:38 AM EDT [facility] Comment:Supplemental ranges: <140 mg/dL before meals <180 mg/dL all other times of the day. Blood CAPILLARY BLOOD / Unknown 07/17/2024 7:38 AM EDT 07/17/2024 7:38 AM EDT Thony Garcia MD POINT OF CARE TEST O GILDA Performing Organization Address [facility] de Phone Number [facility] [place] [address] * ELEN, legs, multiple levels (07/17/2024 6:31 AM EDT) VB Text Report Department: Vascular Surgery Lab Patient: [id number] (GEOVANNA DIXON) CPT: 71247 Referring Physician: VIBHA TIERNEY ?? Indications: PAD [...] ? Dorsalis Pedis (Ankle) Artery ?83 ?0.55 ??Gordon-Biphasic ? Posterior Tibial (Ankle) Artery ??87 ?0.57 [...] - 199 mg/dL 07/17/2024 4:12 AM EDT [facility] Comment:Supplemental ranges: <140 mg/dL before meals <180 mg/dL all other times of the day. Blood CAPILLARY BLOOD / Unknown 07/17/2024 4:12 AM EDT 07/17/2024 4:12 AM EDT Thony Garcia MD POINT OF CARE TEST O RDERABLES [facility] [place] [address] * Heparin (unfractionated) Level (07/17/2024 3:42 AM EDT) UF Heparin 0.42 IU/mL 07/17/2024 4:38 AM EDT [facility] Comment: Heparin (anti-Xa) levels [...] Address City/[facility]/ZIP Co de Phone Number [facility] [place] [address] * Phosphorus (07/17/2024 3:42 AM EDT) Phosphorus 3.6 2.5 - 4.5 mg/dL 07/17/2024 4:47 AM EDT [facility] Blood VENOUS BLOOD SPECIMEN / Unknown IP Care Team Draw / Unknown 07/17/2024 3:42 AM EDT 07/17/2024 4:15 AM EDT Thony Garcia MD CHEMISTRY ORDERABLES Performing Organization Address [facility] Co de Phone Number [facility] [place] [address] * Magnesium (07/17/2024 3:42 AM EDT) Magnesium 0.78 0.69 - 1.07 mMol/L 07/17/2024 4:47 AM EDT [facility] Blood VENOUS BLOOD SPECIMEN / Unknown IP Care Team Draw / Unknown 07/17/2024 3:42 AM EDT 07/17/2024 4:15 AM EDT Thony Garcia MD CHEMISTRY ORDERABLES [facility] [place] [address] * (ABNORMAL) Basic Metabolic Panel (07/17/2024 3:42 AM EDT) Glucose 225(H) 65 - 199 mg/dL 07/17/2024 4:47 AM EDT [facility] Comment:Glucose Concentratio n >=200 mg/dL plus symptoms is consistent with Diabetes Mellitus. Blood Urea Nitrogen 9(L) 10 - 20 mg/dL 07/17/2024 4:47 AM [facility] Creatinine 0.49(L) 0.80 - 1.50 mg/dL 07/17/2024 4:47 AM [facility] Sodium 135 135 - 145 mMol/L 07/17/2024 4:47 AM [facility] Potassium 3.7 3.5 - 5.0 mMol/L 07/17/2024 4:47 AM [facility] Chloride 103 98 - 107 mMol/L 07/17/2024 4:47 AM [facility] Carbon Dioxide 21(L) 22 - 31 mMol/L 07/17/2024 4:47 AM [facility] Anion Gap 11 5 - 15 mMol/L 07/17/2024 4:47 AM [facility] Calcium 9.1 8.5 - 10.5 mg/dL 07/17/2024 4:47 AM [facility] Est Glomerular Filtration Rate - Male 125 mL/min/1. 73 m?? 07/17/2024 4:47 AM [facility] Comment: This patient's estimated [...] AM EDT Thony Garcia MD CHEMISTRY ORDERABLES [facility] [place] [address] * (ABNORMAL) CBC (with Diff) (07/17/2024 3:42 AM EDT) White Blood Cell 11.02(H) 4.00 - 9.50 x10(3)/mc L 07/17/2024 4:21 [facility] Red Blood Cell 4.43(L) 4.58 - 5.54 x10(6)/mc L 07/17/2024 4:21 AM [facility] Hemoglobin 13.1(L) 13.7 - 16.5 g/dL 07/17/2024 4:21 AM [facility] Hematocrit 38.8(L) 40.5 - 48.5 % 07/17/2024 4:21 AM [facility] Mean Cell Volume 87.6 82.9 - 93.1 fL 07/17/2024 4:21 AM [facility] Mean Cell Hemoglobin 29.6 27.5 - 32.1 pg 07/17/2024 4:21 AM [facility] Mean Cell Hemoglobin Concentration 33.8 32.0 - 35.7 g/dL 07/17/2024 4:21 AM [facility] Platelet 367(H) 145 - 357 x10(3)/mc L 07/17/2024 4:21 AM [facility] Mean Platelet Volume 9.7 7.6 - 12.9 fL 07/17/2024 4:21 AM [facility] RDW Standard Deviation 41.5 36.0 - 45.0 fL 07/17/2024 4:21 AM [facility] RDW coefficient of variation 13.0 11.4 - 13.8 % 07/17/2024 4:21 AM [facility] NRBC% auto 0.0 % 07/17/2024 4:21 AM [facility] NRBC Absolute 0.00 0.00 - 0.00 x10(3)/mc L 07/17/2024 4:21 AM [facility] Neutrophil % 70.4 % 07/17/2024 4:21 AM [facility] Neutrophil Absolute (ANC) - Automated 7.76(H) 1.70 - 6.10 x10(3)/mc L 07/17/2024 4:21 AM [facility] Lymph % 20.9 % 07/17/2024 4:21 AM [facility] Lymph Absolute 2.30 0.90 - 3.20 x10(3)/mc L 07/17/2024 4:21 AM [facility] Monocyte % 6.0 % 07/17/2024 4:21 AM [facility] Monocyte Absolute 0.66 0.30 - 0.90 x10(3)/mc L 07/17/2024 4:21 AM [facility] Eos % 1.6 % 07/17/2024 4:21 AM [facility] Eos Absolute 0.18 0.00 - 0.40 x10(3)/mc L 07/17/2024 4:21 AM [facility] Basophil % 0.5 % 07/17/2024 4:21 AM EDT [facility] Baso Absolute 0.05 0.00 - 0.10 x10(3)/mc L 07/17/2024 4:21 AM EDT [facility] Immature Gran % 0.6 % 4:21 AM EDT [facility] Immature Gran Absolute 0.07(H) 0.00 - 0.04 x10(3)/mc L 07/17/2024 4:21 AM EDT [facility] Blood VENOUS BLOOD SPECIMEN / Unknown IP Care Team Draw / Unknown 07/17/2024 3:42 AM EDT 07/17/2024 4:15 AM EDT Thony Garcia MD HEMATOLOGY ORDERABLE S Performing Organization Address City/[facility]/ZIP Co de Phone Number [facility] [place] [address] * (ABNORMAL) POC, GLUCOSE (07/17/2024 2:25 AM EDT) Glucometer, POC 262(H) 65 - 199 mg/dL 07/17/2024 2:25 AM EDT [facility] Comment:Supplemental ranges: <140 mg/dL before meals <180 mg/dL all other times of the day. Blood CAPILLARY BLOOD / Unknown 07/17/2024 2:25 AM EDT 07/17/2024 2:25 AM EDT Thony Garcia MD POINT OF CARE TEST O RDERABLES [facility] [place] [address] * (ABNORMAL) POC, GLUCOSE (07/17/2024 12:19 AM EDT) Glucometer, POC 262(H) 65 - 199 mg/dL 07/17/2024 12:19 AM EDT [facility] Comment:Supplemental ranges: <140 mg/dL before meals <180 mg/dL all other times of the day. Blood CAPILLARY BLOOD / Unknown 07/17/2024 12:19 AM EDT 07/17/2024 12:20 AM EDT Thony Garcia MD POINT OF CARE TEST O DIMITRIERAHERNANDEZ Performing Organization Address [facility] [facility] Co de Phone Number [facility] [place] [address] * (ABNORMAL) POC, GLUCOSE (07/16/2024 8:22 PM EDT) Glucometer, POC 217(H) 65 - 199 mg/dL 07/16/2024 8:23 PM EDT [facility] Comment:Supplemental ranges: <140 mg/dL before meals <180 mg/dL all other times of the day. Blood CAPILLARY BLOOD / Unknown 07/16/2024 8:22 PM EDT 07/16/2024 8:23 PM EDT Thony Garcia MD POINT OF CARE TEST O GILDA Performing Organization Address [facility] Co de Phone Number [facility] [place] [address] * POC, GLUCOSE (07/16/2024 3:47 PM EDT) Glucometer, POC 184 65 - 199 mg/dL 07/16/2024 3:47 PM EDT [facility] Comment:Supplemental ranges: <140 mg/dL before meals <180 mg/dL all other times of the day. Blood CAPILLARY BLOOD / Unknown 07/16/2024 3:47 PM EDT 07/16/2024 3:48 PM EDT Thony Garcia MD POINT OF CARE TEST O GILDA Performing Organization Address [facility] Co de Phone Number [facility] [place] [address] * Heparin (unfractionated) Level (07/16/2024 3:39 PM EDT) UF Heparin 0.47 IU/mL 07/16/2024 4:24 PM EDT [facility] Comment: Heparin (anti-Xa) levels [...] EDT Thony Garcia MD HEMATOLOGY ORDERABLE S [facility] [place] [address] * Potassium (07/16/2024 3:39 PM EDT) Pathologist [facility] Potassium 3.9 3.5 - 5.0 mMol/L 07/16/2024 4:15 PM EDT [facility] Blood VENOUS BLOOD SPECIMEN / Unknown IP Care Team Draw / Unknown 07/16/2024 3:39 PM EDT 07/16/2024 3:47 PM EDT Hermila White APRN CHEMISTRY ORDERABL ES Performing Organization Address City/[facility]/ZIP Co de Phone Number [facility] [place] [address] * MRSA PCR Screen (07/16/2024 2:07 PM EDT) Pathologist [facility] MRSA PCR Not Detected 07/17/2024 6:04 PM EDT [facility] Swab BOTH ANTERIOR NARES / Unknown Non Blood Collection / Unknown 07/16/2024 2:07 PM EDT 07/16/2024 2:13 PM EDT Narrative [facility] - 07/17/2024 6:04 PM EDT This test was performed using the Xpert MRSA NxG test kit and is run on the [employer] GeneXpert Dx System. This test is cleared by the U.S. Food and Drug Administration for clinical use and its performance characteristics have been verified by the [facility] at [facility]. This test was performed using the Xpert MRSA NxG test kit and is run on the [employer] GeneXpert Dx System. This test is cleared by the U.S. Food and Drug Administration for clinical use and its performance characteristics have been verified by the [facility] at [facility]. Hermila White APRN MOLECULAR ORDERABL ES Performing Organization Address [facility]/ZIP Co de Phone Number [facility] [place] [address] * POC, GLUCOSE (07/16/2024 1:33 PM EDT) Glucometer, POC 183 65 - 199 mg/dL 07/16/2024 1:33 PM EDT [facility] Comment:Supplemental ranges: <140 mg/dL before meals <180 mg/dL all other times of the day. Blood CAPILLARY BLOOD / Unknown 07/16/2024 1:33 PM EDT 07/16/2024 1:33 PM EDT Thony Garcia MD POINT OF CARE TEST O RDERABLES Performing Organization Address City/[facility]/ZIP Co de Phone Number [facility] [place] [address] * (ABNORMAL) POC, GLUCOSE (07/16/2024 11:41 AM EDT) Glucometer, POC 259(H) 65 - 199 mg/dL 07/16/2024 11:41 AM EDT [facility] Comment:Supplemental ranges: <140 mg/dL before meals <180 mg/dL all other times of the day. Blood CAPILLARY BLOOD / Unknown 07/16/2024 11:41 AM EDT 07/16/2024 11:41 AM EDT Thony Garcia MD POINT OF CARE TEST O RDERABLES Performing Organization Address City/[facility]/ZIP Co de Phone Number [facility] [place] [address] * Heparin (unfractionated) Level (07/16/2024 9:41 AM EDT) UF Heparin 0.60 IU/mL 07/16/2024 9:54 AM EDT [facility] Comment: Heparin (anti-Xa) levels [...] EDT Thony Garcia MD HEMATOLOGY ORDERABLE S [facility] [place] [address] * (ABNORMAL) POC, GLUCOSE (07/16/2024 7:10 AM EDT) Glucometer, POC 205(H) 65 - 199 mg/dL 07/16/2024 7:11 AM EDT [facility] Comment:Supplemental ranges: <140 mg/dL before meals <180 mg/dL all other times of the day. Blood CAPILLARY BLOOD / Unknown 07/16/2024 7:10 AM EDT 07/16/2024 7:11 AM EDT Thony Garcia MD POINT OF CARE TEST O RDERABLES Performing Organization Address City/[facility]/ZIP Co de Phone Number [facility] [place] [address] * (ABNORMAL) Potassium (07/16/2024 4:15 AM EDT) [facility] Potassium 3.2(L) 3.5 - 5.0 mMol/L 07/16/2024 4:53 AM EDT [facility] Blood VENOUS BLOOD SPECIMEN / Unknown IP Care Team Draw / Unknown 07/16/2024 4:15 AM EDT 07/16/2024 4:23 AM EDT Thony Garcia MD CHEMISTRY ORDERABLES Performing Organization Address [facility] Co de Phone Number [facility] [place] [address] * Phosphorus (07/16/2024 4:15 AM EDT) Pathologist [facility] Phosphorus 3.7 2.5 - 4.5 mg/dL 07/16/2024 4:53 AM EDT [facility] Blood VENOUS BLOOD SPECIMEN / Unknown IP Care Team Draw / Unknown 07/16/2024 4:15 AM EDT 07/16/2024 4:23 AM EDT Thony Garcia MD CHEMISTRY ORDERABLES Performing Organization Address City/[facility] Co de Phone Number [facility] [place] [address] * POC, GLUCOSE (07/16/2024 4:14 AM EDT) Glucometer, POC 187 65 - 199 mg/dL 07/16/2024 4:17 AM EDT [facility] Comment:Supplemental ranges: <140 mg/dL before meals <180 mg/dL all other times of the day. Blood CAPILLARY BLOOD / Unknown 07/16/2024 4:14 AM EDT 07/16/2024 4:17 AM EDT Thony Garcia MD POINT OF CARE TEST O GILDA Performing Organization Address [facility] de Phone Number [facility] [place] [address] * (ABNORMAL) POC, GLUCOSE (07/16/2024 2:07 AM EDT) Glucometer, POC 254(H) 65 - 199 mg/dL 07/16/2024 2:08 AM EDT [facility] Comment:Supplemental ranges: <140 mg/dL before meals <180 mg/dL all other times of the day. Blood CAPILLARY BLOOD / Unknown 07/16/2024 2:07 AM EDT 07/16/2024 2:08 AM EDT Thony Garcia MD POINT OF CARE TEST O GILDA Performing Organization Address [facility] Co de Phone Number [facility] [place] [address] * Heparin (unfractionated) Level (07/16/2024 2:07 AM EDT) UF Heparin 0.72 IU/mL 07/16/2024 2:36 AM EDT [facility] Comment: Heparin (anti-Xa) levels [...] S Performing Organization Address [facility] Co de Phone Number [facility] [place] [address] * Magnesium (07/16/2024 2:07 AM EDT) Magnesium 0.83 0.69 - 1.07 mMol/L 07/16/2024 2:47 AM EDT [facility] Blood VENOUS BLOOD SPECIMEN / Unknown IP Care Team Draw / Unknown 07/16/2024 2:07 AM EDT 07/16/2024 2:14 AM EDT Thony Garcia MD CHEMISTRY ORDERABLES Performing Organization Address [facility] Co de Phone Number [facility] [place] [address] * (ABNORMAL) Basic Metabolic Panel (07/16/2024 2:07 AM EDT) Glucose 248(H) 65 - 199 mg/dL 07/16/2024 2:57 AM EDT [facility] Comment:Glucose Concentratio n >=200 mg/dL plus symptoms is consistent with Diabetes Mellitus. Blood Urea Nitrogen 8(L) 10 - 20 mg/dL 07/16/2024 2:57 AM EDT [facility] Creatinine 0.42(L) 0.80 - 1.50 mg/dL 07/16/2024 2:57 AM EDT [facility] Sodium 135 135 - 145 mMol/L 07/16/2024 2:57 [facility] Potassium 07/16/2024 2:57 AM [facility] Comment:Unable to report due to hemolysis Chloride 101 98 - 107 mMol/L 07/16/2024 2:57 [facility] Carbon Dioxide 22 22 - 31 mMol/L 07/16/2024 2:57 AM [facility] Anion Gap 12 5 - 15 mMol/L 07/16/2024 2:57 AM [facility] Calcium 9.0 8.5 - 10.5 mg/dL 07/16/2024 2:57 AM [facility] Est Glomerular Filtration Rate - Male 131 mL/min/1. 73 m?? 07/16/2024 2:57 AM [facility] Comment: This patient's estimated [...] AM EDT Thony Garcia MD CHEMISTRY ORDERABLES [facility] [place] [address] * (ABNORMAL) CBC (with Diff) (07/16/2024 2:07 AM EDT) White Blood Cell 11.08(H) 4.00 - 9.50 x10(3)/mc L 07/16/2024 2:23 AM [facility] Red Blood Cell 4.29(L) 4.58 - 5.54 x10(6)/mc L 07/16/2024 2:23 AM [facility] Hemoglobin 12.7(L) 13.7 - 16.5 g/dL 07/16/2024 2:23 AM [facility] Hematocrit 36.6(L) 40.5 - 48.5 % 07/16/2024 2:23 AM [facility] Mean Cell Volume 85.3 82.9 - 93.1 fL 07/16/2024 2:23 AM [facility] Mean Cell Hemoglobin 29.6 27.5 - 32.1 pg 07/16/2024 2:23 AM [facility] Mean Cell Hemoglobin Concentration 34.7 32.0 - 35.7 g/dL 07/16/2024 2:23 AM [facility] Platelet 363(H) 145 - 357 x10(3)/mc L 07/16/2024 2:23 AM [facility] Mean Platelet Volume 10.3 7.6 - 12.9 fL 07/16/2024 2:23 AM [facility] RDW Standard Deviation 39.2 36.0 - 45.0 fL 07/16/2024 2:23 AM [facility] RDW coefficient of variation 12.7 11.4 - 13.8 % 07/16/2024 2:23 AM [facility] NRBC% auto 0.0 % 07/16/2024 2:23 AM [facility] NRBC Absolute 0.00 0.00 - 0.00 x10(3)/mc L 07/16/2024 2:23 AM [facility] Neutrophil % 66.2 % 07/16/2024 2:23 AM [facility] Neutrophil Absolute (ANC) - Automated 7.33(H) 1.70 - 6.10 x10(3)/mc L 07/16/2024 2:23 AM EDT [facility] Lymph % 24.2 % 07/16/2024 2:23 AM EDT [facility] Lymph Absolute 2.68 0.90 - 3.20 x10(3)/mc L 07/16/2024 2:23 AM EDT [facility] Monocyte % 6.9 % 07/16/2024 2:23 AM EDT [facility] Monocyte Absolute 0.77 0.30 - 0.90 x10(3)/mc L 07/16/2024 2:23 AM EDT [facility] Eos % 1.6 % 07/16/2024 2:23 AM EDT [facility] Eos Absolute 0.18 0.00 - 0.40 x10(3)/mc L 07/16/2024 2:23 AM EDT [facility] Basophil % 0.6 % 07/16/2024 2:23 AM EDT [facility] Baso Absolute 0.07 0.00 - 0.10 x10(3)/mc L 07/16/2024 2:23 AM EDT [facility] Immature Gran % 0.5 % 2:23 AM EDT [facility] Immature Gran Absolute 0.05(H) 0.00 - 0.04 x10(3)/mc L 07/16/2024 2:23 AM EDT [facility] Blood VENOUS BLOOD SPECIMEN / Unknown IP Care Team Draw / Unknown 07/16/2024 2:07 AM EDT 07/16/2024 2:14 AM EDT Thony Garcia MD HEMATOLOGY ORDERABLE S [facility] [place] [address] * (ABNORMAL) POC, GLUCOSE (07/16/2024 12:04 AM EDT) [facility] Signature Glucometer, POC 324(H) 65 - 199 mg/dL 07/16/2024 12:05 AM EDT [facility] Comment:Supplemental ranges: <140 mg/dL before meals <180 mg/dL all other times of the day. Blood CAPILLARY BLOOD / Unknown 07/16/2024 12:04 AM EDT 07/16/2024 12:05 AM EDT Thony Garcia MD POINT OF CARE TEST O GILDA Performing Organization Address [facility] Co de Phone Number [facility] [place] [address] * (ABNORMAL) POC, GLUCOSE (07/15/2024 8:36 PM EDT) Glucometer, POC 274(H) 65 - 199 mg/dL 07/15/2024 8:36 PM EDT [facility] Comment:Supplemental ranges: <140 mg/dL before meals <180 mg/dL all other times of the day. Blood CAPILLARY BLOOD / Unknown 07/15/2024 8:36 PM EDT 07/15/2024 8:36 PM EDT Thony Garcia MD POINT OF CARE TEST O GILDA Performing Organization Address [facility] Co de Phone Number [facility] [place] [address] * Heparin (unfractionated) Level (07/15/2024 8:21 PM EDT) Pathologist [facility] UF Heparin 0.55 IU/mL 07/15/2024 8:42 PM EDT [facility] Comment: Heparin (anti-Xa) levels [...] HEMATOLOGY ORDERABLE S Performing Organization Address City/[facility] Co de Phone Number [facility] [place] [address] * (ABNORMAL) POC, GLUCOSE (07/15/2024 4:41 PM EDT) Glucometer, POC 275(H) 65 - 199 mg/dL 07/15/2024 4:42 PM EDT [facility] Comment:Supplemental ranges: <140 mg/dL before meals <180 mg/dL all other times of the day. Blood CAPILLARY BLOOD / Unknown 07/15/2024 4:41 PM EDT 07/15/2024 4:42 PM EDT Thony Garcia MD POINT OF CARE TEST O RDERABLES Performing Organization Address City/[facility]/ZIP Co de Phone Number [facility] [place] [address] * (ABNORMAL) Vancomycin, trough (07/15/2024 2:19 PM EDT) Vancomycin, Trough 9.7(L) 10.0 - 20.0 mg/L 07/15/2024 3:28 PM EDT [facility] Comment: Varies according to infection source. Blood VENOUS BLOOD SPECIMEN / Unknown IP Care Team Draw / Unknown 07/15/2024 2:19 PM EDT 07/15/2024 3:00 PM EDT Thony Garcia MD CHEMISTRY ORDERABLES Performing Organization Address [facility] Co de Phone Number [facility] [place] [address] * (ABNORMAL) POC, GLUCOSE (07/15/2024 1:16 PM EDT) Glucometer, POC 223(H) 65 - 199 mg/dL 07/15/2024 1:17 PM EDT [facility] Comment:Supplemental ranges: <140 mg/dL before meals <180 mg/dL all other times of the day. Blood CAPILLARY BLOOD / Unknown 07/15/2024 1:16 PM EDT 07/15/2024 1:18 PM EDT Thony Garcia MD POINT OF CARE TEST O RDERABLES Performing Organization Address [facility] Co de Phone Number [facility] [place] [address] * POC, GLUCOSE (07/15/2024 8:34 AM EDT) Glucometer, POC 133 65 - 199 mg/dL 07/15/2024 8:35 AM EDT [facility] Comment:Supplemental ranges: <140 mg/dL before meals <180 mg/dL all other times of the day. Blood CAPILLARY BLOOD / Unknown 07/15/2024 8:34 AM EDT 07/15/2024 8:35 AM EDT Thony Garcia MD POINT OF CARE TEST O RDERABLES [facility] [place] [address] * (ABNORMAL) POC, GLUCOSE (07/15/2024 4:44 AM EDT) Glucometer, POC 224(H) 65 - 199 mg/dL 07/15/2024 4:44 AM EDT [facility] Comment:Supplemental ranges: <140 mg/dL before meals <180 mg/dL all other times of the day. Blood CAPILLARY BLOOD / Unknown 07/15/2024 4:44 AM EDT 07/15/2024 4:44 AM EDT Thony Garcia MD POINT OF CARE TEST O RDERAHERNANDEZ Performing Organization Address [facility] Co de Phone Number [facility] [place] [address] * (ABNORMAL) POC, GLUCOSE (07/15/2024 2:48 AM EDT) Glucometer, POC 281(H) 65 - 199 mg/dL 07/15/2024 2:48 AM EDT [facility] Comment:Supplemental ranges: <140 mg/dL before meals <180 mg/dL all other times of the day. Blood CAPILLARY BLOOD / Unknown 07/15/2024 2:48 AM EDT 07/15/2024 2:48 AM EDT Thony Garcia MD POINT OF CARE TEST O GILDA Performing Organization Address [facility] Co de Phone Number [facility] [place] [address] * (ABNORMAL) Basic Metabolic Panel (07/15/2024 12:45 AM EDT) Glucose 309(H) 65 - 199 mg/dL 07/15/2024 1:28 AM EDT [facility] Comment:Glucose Concentratio n >=200 mg/dL plus symptoms is consistent with Diabetes Mellitus. Blood Urea Nitrogen 8(L) 10 - 20 mg/dL 07/15/2024 1:28 AM EDT [facility] Creatinine 0.80 0.80 - 1.50 mg/dL 07/15/2024 1:28 AM EDT [facility] Sodium 132(L) 135 - 145 mMol/L 07/15/2024 1:28 AM EDT [facility] Potassium 3.7 3.5 - 5.0 mMol/L 07/15/2024 1:28 AM EDT [facility] Chloride 99 98 - 107 mMol/L 07/15/2024 1:28 AM EDT [facility] Carbon Dioxide 20(L) 22 - 31 mMol/L 07/15/2024 1:28 AM EDT [facility] Anion Gap 13 5 - 15 mMol/L 07/15/2024 1:28 AM EDT [facility] Calcium 8.5 8.5 - 10.5 mg/dL 07/15/2024 1:28 AM EDT [facility] Est Glomerular Filtration Rate - Male 108 mL/min/1. 73 m?? 07/15/2024 1:28 AM EDT [facility] Comment: This patient's estimated [...] AM EDT Thony Garcia MD CHEMISTRY ORDERABLES [facility] [place] [address] * (ABNORMAL) CBC (with Diff) (07/15/2024 12:45 AM EDT) White Blood Cell 11.70(H) 4.00 - 9.50 x10(3)/mc L 07/15/2024 1:05 AM EDT [facility] Red Blood Cell 4.13(L) 4.58 - 5.54 x10(6)/mc L 07/15/2024 1:05 AM [facility] Hemoglobin 12.1(L) 13.7 - 16.5 g/dL 07/15/2024 1:05 AM [facility] Hematocrit 35.7(L) 40.5 - 48.5 % 07/15/2024 1:05 AM [facility] Mean Cell Volume 86.4 82.9 - 93.1 fL 07/15/2024 1:05 AM [facility] Mean Cell Hemoglobin 29.3 27.5 - 32.1 pg 07/15/2024 1:05 AM [facility] Mean Cell Hemoglobin Concentration 33.9 32.0 - 35.7 g/dL 07/15/2024 1:05 AM [facility] Platelet 322 145 - 357 x10(3)/mc L 07/15/2024 1:05 AM [facility] Mean Platelet Volume 9.9 7.6 - 12.9 fL 07/15/2024 1:05 AM [facility] RDW Standard Deviation 40.2 36.0 - 45.0 fL 07/15/2024 1:05 AM [facility] RDW coefficient of variation 12.9 11.4 - 13.8 % 07/15/2024 1:05 AM [facility] NRBC% auto 0.0 % 07/15/2024 1:05 AM [facility] NRBC Absolute 0.00 0.00 - 0.00 x10(3)/mc L 07/15/2024 1:05 AM [facility] Neutrophil % 74.9 % 07/15/2024 1:05 AM [facility] Neutrophil Absolute (ANC) - Automated 8.75(H) 1.70 - 6.10 x10(3)/mc L 07/15/2024 1:05 AM [facility] Lymph % 16.3 % 07/15/2024 1:05 AM [facility] Lymph Absolute 1.91 0.90 - 3.20 x10(3)/mc L 07/15/2024 1:05 AM EDT [facility] Monocyte % 6.6 % 07/15/2024 1:05 AM EDT [facility] Monocyte Absolute 0.77 0.30 - 0.90 x10(3)/mc L 07/15/2024 1:05 AM EDT [facility] Eos % 1.5 % 07/15/2024 1:05 AM EDT [facility] Eos Absolute 0.18 0.00 - 0.40 x10(3)/mc L 07/15/2024 1:05 AM EDT [facility] Basophil % 0.3 % 07/15/2024 1:05 AM EDT [facility] Baso Absolute 0.04 0.00 - 0.10 x10(3)/mc L 07/15/2024 1:05 AM EDT [facility] Immature Gran % 0.4 % 1:05 AM EDT [facility] Immature Gran Absolute 0.05(H) 0.00 - 0.04 x10(3)/mc L 07/15/2024 1:05 AM EDT [facility] Blood VENOUS BLOOD SPECIMEN / Unknown IP Care Team Draw / Unknown 07/15/2024 12:45 AM EDT 07/15/2024 1:00 AM EDT Thony Garcia MD HEMATOLOGY ORDERABLE S [facility] [place] [address] * (ABNORMAL) POC, GLUCOSE (07/15/2024 12:29 AM EDT) Glucometer, POC 394(H) 65 - 199 mg/dL 07/15/2024 12:30 AM EDT [facility] Comment:Supplemental ranges: <140 mg/dL before meals <180 mg/dL all other times of the day. Blood CAPILLARY BLOOD / Unknown 07/15/2024 12:29 AM EDT 07/15/2024 12:30 AM EDT Thony Garcia MD POINT OF CARE TEST O RDERABLES [facility] [place] [address] * CT Angiogram Aortic Lower Extremity Runoff (07/14/2024 11:57 PM EDT) WORKSTATION ID [id number] [facility] Anatomical Region Laterality Modality Abdomen Computed Tomogra [...] who have questions please contact the health senior care specialist that requested your imaging first. [...] 2.6 cm vessel length at and just [id number], similar to prior. Anterior tibial artery: No [...] the intravenous administration of contrast. 149 cc [id number]. Maximum intensity projection (MIP) were reformatted. 3-D [...] 2.6 cm vessel length at and just [id number], similar toprior. Anterior tibial artery: No stenosis. [...] patients who have questions please contactthe health senior care specialist that requested your imaging first. Electronically signed by: Geovanna Ray MD, [facility]([phone]), at 07/15/2024 1:13 AM Thony Garcia MD IMG CT ORDERABLES * XR Foot Min 3 views Left (Generic) (07/14/2024 9:11 PM EDT) WORKSTATION ID [id number] RAD Anatomical Region Laterality Modality Foot Left [...] who have questions please contact the health senior care specialist that requested your imaging first. ? Electronically signed by: Geovanna Ray MD, [facility] ??([phone]), at 07/14/2024 10:26 PM Narrative 07/14/2024 10:26 [...] patients who have questions please contactthe health senior care specialist that requested your imaging first. Electronically signed by: Geovanna Ray MD, [facility]([phone]), at 07/14/2024 10:26 PM Arthur Patel DO [facility] DX ORDERABLES * Lactate Whole Blood POC (07/14/2024 7:41 PM EDT) Lactate, Whole Blood 1.1 0.5 - 2.2 mmol/L 07/14/2024 7:42 PM EDT [facility] Blood ARTERIAL BLOOD / Unknown 07/14/2024 7:41 PM EDT 07/14/2024 7:42 PM EDT Unknown POINT OF CARE TEST O RDERABLES [facility] [place] [address] * (ABNORMAL) Basic Metabolic Panel (07/14/2024 7:39 PM EDT) Glucose 341(H) 65 - 199 mg/dL 07/14/2024 8:13 PM EDT [facility] Comment:Glucose Concentratio n >=200 mg/dL plus symptoms is consistent with Diabetes Mellitus. Blood Urea Nitrogen 6(L) 10 - 20 mg/dL 07/14/2024 8:13 PM EDT [facility] Creatinine 0.53(L) 0.80 - 1.50 mg/dL 07/14/2024 8:13 PM EDT [facility] Sodium 137 135 - 145 mMol/L 07/14/2024 8:13 PM EDT [facility] Potassium 3.7 3.5 - 5.0 mMol/L 07/14/2024 8:13 PM EDT [facility] Chloride 101 98 - 107 mMol/L 07/14/2024 8:13 PM EDT [facility] Carbon Dioxide 23 22 - 31 mMol/L 07/14/2024 8:13 PM EDT [facility] Anion Gap 13 5 - 15 mMol/L 07/14/2024 8:13 PM EDT [facility] Calcium 8.6 8.5 - 10.5 mg/dL 07/14/2024 8:13 PM EDT [facility] Est Glomerular Filtration Rate - Male 122 mL/min/1. 73 m?? 07/14/2024 8:13 PM EDT [facility] Comment: This patient's estimated [...] PM EDT Arthur Patel DO CHEMISTRY ORDERABLES [facility] [place] [address] * (ABNORMAL) CBC (with Diff) (07/14/2024 7:39 PM EDT) White Blood Cell 8.69 4.00 - 9.50 x10(3)/mc L 07/14/2024 7:50 PM EDT [facility] Red Blood Cell 4.01(L) 4.58 - 5.54 x10(6)/mc L 07/14/2024 7:50 PM EDT [facility] Hemoglobin 11.7(L) 13.7 - 16.5 g/dL 07/14/2024 7:50 PM EDT [facility] Hematocrit 34.5(L) 40.5 - 48.5 % 07/14/2024 7:50 PM EDT [facility] Mean Cell Volume 86.0 82.9 - 93.1 fL 07/14/2024 7:50 PM EDT [facility] Mean Cell Hemoglobin 29.2 27.5 - 32.1 pg 07/14/2024 7:50 PM EDT [facility] Mean Cell Hemoglobin Concentration 33.9 32.0 - 35.7 g/dL 07/14/2024 7:50 PM EDT [facility] Platelet 313 145 - 357 x10(3)/mc L 07/14/2024 7:50 PM EDT [facility] Mean Platelet Volume 9.5 7.6 - 12.9 fL 07/14/2024 7:50 PM EDT [facility] RDW Standard Deviation 39.5 36.0 - 45.0 fL 07/14/2024 7:50 PM [facility] RDW coefficient of variation 12.6 11.4 - 13.8 % 07/14/2024 7:50 PM [facility] NRBC% auto 0.0 % 07/14/2024 7:50 PM [facility] NRBC Absolute 0.00 0.00 - 0.00 x10(3)/mc L 07/14/2024 7:50 PM [facility] Neutrophil % 67.3 % 07/14/2024 7:50 PM [facility] Neutrophil Absolute (ANC) - Automated 5.85 1.70 - 6.10 x10(3)/mc L 07/14/2024 7:50 PM [facility] Lymph % 23.4 % 07/14/2024 7:50 PM [facility] Lymph Absolute 2.03 0.90 - 3.20 x10(3)/mc L 07/14/2024 7:50 PM [facility] Monocyte % 6.8 % 07/14/2024 7:50 PM [facility] Monocyte Absolute 0.59 0.30 - 0.90 x10(3)/mc L 07/14/2024 7:50 PM [facility] Eos % 1.7 % 07/14/2024 7:50 PM [facility] Eos Absolute 0.15 0.00 - 0.40 x10(3)/mc L 07/14/2024 7:50 PM [facility] Basophil % 0.3 % 07/14/2024 7:50 PM [facility] Baso Absolute 0.03 0.00 - 0.10 x10(3)/mc L 07/14/2024 7:50 PM [facility] Immature Gran % 0.5 % 7:[facility] Immature Gran Absolute 0.04 0.00 - 0.04 x10(3)/mc L 07/14/2024 7:50 PM EDT [facility] Blood VENOUS BLOOD SPECIMEN / Unknown Venipuncture / Unknown 07/14/2024 7:39 PM EDT 07/14/2024 7:46 PM EDT Arthur Patel DO HEMATOLOGY ORDERABLE S [facility] [place] [address] documented in this encounter Visit Diagnoses Diagnosis [...] 50 mL Mini-Bag Plus 3.375 g, Intravenous, CHIEF COUNSEL TO O.R., 1 dose, On Wed07/14/24 at [...] over 4 Hours, Warning Vesicant/Irritant Medication Per escalation engineer labeling, do not administer or Y-site with [...] on 07/17/24 at 0900, Until Discontinued, Routine Given 07/21/2024 [...] - Provider: Admin Adt)1303 (Given - Provider: Endi Johnson LPN) 1321 (Given - Provider: Lauren [...] Rudd RN) 1613 (Given - Provider: Jaja Diallo RN) 1714 (Given - Provider: Nava Huggins, [...] Jonas, DAVID) 0625 (Given - Provider: Anabel Jonas RN)1321 (Given - Provider: Lauren Zavala, RN) [...] not met)0748 (Given - Provider: Gavin Rudd, DAVID - Comment: BG [phone])0857 (MAR Hold - Provider: Admin Adt - Reason: Transfer to a Procedural area)1200 (Automatically Held - Provider: Admin Adt)1206 (MAR Unhold - Provider: Admin Adt)1725 (Given - Provider: Gavin Rudd, DAVID - Comment: BG [phone])1939 (Given - Provider: Anabel Jonas, RN - Comment: [phone] (Given - Provider: Anabel Jonas, RN - Comment: [phone]) 0101 (Given - Provider: Marycruz Tirado, RN - Comment: 2 hr recheck 342)0342 (Given - Provider: Anabel Jonas, RN - Comment: [phone])0800 (Not Given - Provider: Lauren Zavala, RN - Reason: Order parameters not met)1200 (Not Given - Provider: Lauren Zavala RN - Reason: Order parameters not met)1614 (Given - Provider: Jaja Diallo, RN)2018 (Given - Provider: Anabel Jonas, RN - Comment: [phone]) 0005 (Given - [...] 07/15/24 at 0900, Until Discontinued, Routine 0857 (MAR Hold - Provider: Admin Adt - Reason: Transfer to a Procedural area)0900 (Automatically Held - Provider: Admin Adt)1206 (MAR Unhold - Provider: Admin Adt)1304 (Given - [...] over 4 Hours, Warning Vesicant/Irritant Medication Per escalation engineer labeling, do not administer or Y-site with lactated ringers., Indication for (Active or Suspected): Sinusitis/Pharyngitis 0147 (Stopped - Provider: Cecilia Cm RN)0419 (New Bag - Provider: Cecilia mC RN)0819 (Stopped - Provider: Gavin Rudd, DAVID)0857 (JAN Hold - Provider: Admin Adt - Reason: Transfer to a Procedural area)1206 (JAN Unhold - Provider: Admin Adt)1305 (New Bag - Provider: Enid Johnson LPN)1705 (Stopped - Provider: Gavin uRdd, DAVID)1939 (New Bag - Provider: Anabel Jonas, DAVID)2341 (Stopped - Provider: Anabel Jonas, DAVID) 0412 (New Bag - Provider: Anabel Jonas RN)0812 (Stopped - Provider: Lauren Zavala RN)1302 (New Bag - Provider: Lauren Zavala, DAVID)1702 (Stopped - Provider: Lauren Zavala RN)2037 (New Bag - Provider: Anabel Jonas RN) 0037 (Stopped - Provider: Carlos Enrique Knowles, DAVID)0409 (New Bag - Provider: Carlos Enrique Knowles, RN)0809 (Stopped - Provider: Nava Huggins RN)1307 (New Bag - Provider: Nava Huggins RN)1707 (Stopped - Provider: Nava Huggins, DAVID) protriptyline [...] 0950 (Given - Provider: Nava Huggins, RN) sodium chloride 0.9 % (flush) (BD PosiFlush Normal Saline 0.9) flush 5 mL 5 mL, Intravenous, 2 TIMES DAILY, First dose on Wed07/14/24 at 2225, Until Discontinued, Routine 0857 (JAN Hold - Provider: Admin Adt - Reason: Transfer to a Procedural area)0900 (Automatically Held - Provider: Admin Adt)1206 (JAN Unhold - Provider: Admin Adt)2008 (Given - Provider: Anabel Jonas RN) 0900 (Due)2100 (Given - Provider: Anabel [...] Zavala, DAVID) 1111 (Given - Provider: Nava Huggins, DAVID [...] not infusing on assessment, order to d/c.)1149 ([facility] Unhold - Provider: Cristiano Jones MD) heparin [...] Procedural area)1206 (MAR Unhold - Provider: Admin Adt)2305 (Given - Provider: Anabel Jonas RN) 0409 (Given - Provider: Carlos Enrique Knowles RN)0954 (Given - Provider: Nava Huggins, DAVID) bisacodyL (Dulcolax) suppository 10 mg(Linked Group 3) 10 mg, Rectal, DAILY PRN, Starting on 07/15/24 at 1431, Until Wed07/21/24 at 2209, Constipation, Give if no BM within last 24 hr and rectal fullness is reported or assessed. Give concomitantly with any scheduled bowel medications ordered. , Routine 0857 (MAR Hold - Provider: Admin Adt - Reason: Transfer to a Procedural area)1206 (MAR Unhold - Provider: Admin Adt) bisacodyl EC (Dulcolax) tablet 10 mg(Linked Group 3) 10 mg, Oral, 2 TIMES DAILY PRN, Starting on 07/15/24 at 1431, Until Wed07/21/24 at 2209, Constipation, Give if no BM after 24 hr after prior interventions. BM expected in 6-8 hours. If BM desired sooner, use next ordered agent. Give concomitantly with any scheduled bowel medications ordered., Routine 0857 (MAR Hold - Provider: Admin Adt - Reason: Transfer to a Procedural area)1206 (MAR Unhold - Provider: Admin Adt) BUPivacaine (pf) [...] orders before administering the next dose. 0857 (MAR Hold - Provider: Admin Adt [...] area)1206 (JAN Unhold - Provider: Admin Adt) lactulose (Chronulac) (0.67 gram/mL) oral liquid 20 g(Linked Group 3) 20 g, Oral, DAILY PRN, Starting on 07/15/24 at 1431, Until Wed07/21/24 at 2209, Constipation, Give if no BM 24 hr after prior interventions or if BM is desired within 2 hr. Give concomitantly with any scheduled bowel medications ordered, Routine 0857 ([facility] Hold - Provider: Admin Adt - Reason: Transfer to a Procedural area)1206 ([facility] Unhold - Provider: Admin Adt) [...] scheduled bowel medications ordered. , Routine 0857 ([facility] Hold - Provider: Admin Adt - Reason: Transfer to a Procedural area)1206 ([facility] Unhold - Provider: Admin Adt) lidocaine (Xylocaine) 1% (10 mg/mL) injection 3 mg 3 mg (0.3 mL), Subcutaneous, ONCE PRN, 1 dose, Starting on Wed07/14/24 at 2208, Until Wed07/21/24 at 2209, for discomfort with PIV insertion, Routine 0857 ([facility] Hold - Provider: Admin Adt - Reason: Transfer to a Procedural area)1206 ([facility] Unhold - Provider: Admin Adt) [...] any scheduled bowel medications ordered., Routine 0857 ([facility] Hold - Provider: Admin Adt - Reason: Transfer to a Procedural area)1206 ([facility] Unhold - Provider: Admin Adt) melatonin tablet 3 mg 3 mg, Oral, NIGHTLY PRN, Starting on Wed07/14/24 at 2208, Until Wed07/21/24 at 2209, Sleep, Sleep, Routine 0857 ([facility] Hold - Provider: Admin Adt - Reason: Transfer to a Procedural area)1206 ([facility] Unhold - Provider: Admin Adt) [...] 45 minutes if ineffective. , Routine 0857 (JAN Hold - Provider: Admin Adt - Reason: Transfer to a Procedural area)1206 ([facility] Unhold - Provider: Admin Adt) [...] scheduled bowel medications ordered. , Routine 0857 ([facility] Hold - Provider: Admin Adt - Reason: Transfer to a Procedural area)1206 ([facility] Unhold - Provider: Admin Adt) prochlorperazine (Compazine) (5 mg/mL) injection 10 mg(Linked Group 6) 10 mg, Intravenous, EVERY 6 HOURS PRN, Starting on Wed07/14/24 at 2208, Until Wed07/21/24 at 2209, Nausea, Nausea/Vomiting, If multiple antiemetics are ordered, use ondansetron first. If ondansetron ineffective use prochlorperazine. Only give IV if unable to take PO, Routine 0857 ([facility] Hold - Provider: Admin Adt - Reason: Transfer to a Procedural area)1206 ([facility] Unhold - Provider: Admin Adt) prochlorperazine (Compazine) tablet 10 mg(Linked Group 6) 10 mg, Oral, EVERY 6 HOURS PRN, Starting on Wed07/14/24 at 2208, Until Wed07/21/24 at 2209, Nausea, Nausea/Vomiting, If multiple antiemetics are ordered, use ondansetron first. If ondansetron ineffective use prochlorperazine. PO Preferred. If patient unable to take PO, may give IV if ordered., Routine 0857 ([facility] Hold - Provider: Admin Adt - Reason: Transfer to a Procedural area)1206 ([facility] Unhold - Provider: Admin Adt) sodium chloride 0.9 % (flush) (BD PosiFlush Normal Saline 0.9) flush 5-20 mL 5-20 mL, Intravenous, EVERY 1 MIN PRN, Starting on Wed07/14/24 at 2208, Until Wed07/21/24 at 2209, flush, Flush pertains to all indwelling lines. Flush per protocol found in the job aid using the link provided on this medication record., Routine 0857 ([facility] Hold - Provider: Admin Adt - Reason: Transfer to a Procedural area)1206 (MAR Unhold - Provider: Admin Adt) Linked Groups [...] 1431, Until Wed07/21/24 at 2208, Constipation, Give an additional (2nd) dose of [...] Routine documented in this encounter Care Teams Tower Erector Relationship Specialty Start Date End Date None None PCP - General 05/27/24 09/17/24 documented as of this encounter
--- OUTSIDE RECORDS SUMMARY | 2024-10-20 12:51 | XMS_ITS | Encounter Summary ---
Author Organization [facility] [place] [address] Care Team Providers Care Agribusiness Internship Name Role Phone None Primary Care Provider [...] time in the past [address] [facility], were you homeless or living in a alf (including now)? No 07/17/2024 IPV Inpatient Questions [...] 10/23/2024 1:00 PM EST Appointment XRay at [address] [place] [id number] Isabela Hayward, DIRECTOR OF FOOD AND BEVERAGE SERVICES [facility] [place] [address] 11/09/2024 1:30 PM EST Office [place] [phone] Isabela Hayward [facility] [place] [address] 11/10/2024 10:00 AM EST Office [place] [phone] Dai Whitman APRN 11/21/2024 2:15 PM EST Office [place] [phone] Dayanara Grover MD [facility] [place] [address] documented as of this encounter Visit Diagnoses Not on filedocumented in this encounter Care Teams [employer]usiness Internship Relationship Specialty Start Date End Date None None PCP - General 05/27/24 09/17/24 documented as of this encounter
--- OUTSIDE RECORDS SUMMARY | 2024-10-20 12:51 | XMS_ITS | Encounter Summary ---
Author Organization [place] [id number] Care Team Providers Care Deer Farmer Name Role Phone None Primary Care Provider Unavailabl e Reason for Visit * Reason Comments Hospital Transfer * Auth/Cert (Routine) Specialty Diagnoses / Procedures Referred By William t Referred To Contact Diagnoses Peripheral artery disease Ischemic foot Procedures EMERGENCY IPI Thony Garcia MD [facility] [place] [address] [facility] Referral ID Status Reason Start Date Expiration Date Visits Re quested Visits Authorized [id number] 1 1 Encounter Details Date Type Department Care Team (Late st Contact Info) Description 07/19/2024 8:45 AM EDT - 07/19/2024 10:21 AM EDT Surgery [place] [id number] Thony Garcia MD [facility] [place] [address] AMPUTATION TOE, METATARSO-PHALANGEAL JOINT (WRVU 3.51) Social History Tobacco Use Types Packs/Day Years Used Date Smoking Tobacco: Every Day Cigarettes 1 25 Started: 12/28/1986; Last attempted to quit: 12/28/2011 Alcohol Use Standard Drinks/Week Comments No 0 (1 standard drink = 0.6 oz pur e alcohol) [facility] Utilities Answer Date Recorded In [...] any time in the past 12 m [facility], were you homeless or living in a alf (including now)? No 07/17/2024 DH IPV Inpatient [...] patient has been previously admitted to the [facility] Vascular Surgery service on 05/28 - 06/02 [...] tobacco/substance abuse, narcolepsy/cataplexy, who initially presented to [facility] ED with left foot wounds/cellulitis and concern for limb ischemia [facility]. Recent admit 05/2024 for short segment left popliteal occlusion; he was treated with a heparin drip and antibiotics for cellulitis with improvement. He was discharged on Xarelto 2.5mg BID, aspirin and short course of Augmentin with instructions to be seen in 1 mo [facility], which he did not show for the [...] of an occluded SVG-RPDA graft with a MEDICAL UNDERWRITER of his right coronary artery. He has [...] 149 Dorsalis Pedis (Ankle) Artery 83 0.55 [place]-Biphasic Posterior Tibial (Ankle) Artery 87 0.57 Monophasic [...] Appointments and Orders Future Orders Complete By [employer] [EQ161 Custom] As directed Process Instructions: Scheduling Instructions: Comments: Geovanna Dixon Jr. [address] [facility] [id number] [phone] (home) Telephone Information: Diagnosis: deconditioning with Unsteady gait Significant weakness, ataxia or gait abnormality Patient's: Hgt: Ht Readings from Last 1 Encounters: 07/14/24 : 177.8 cm (5' 10) Wgt: Wt Readings from Last 1 Encounters: 07/14/24 : 99.8 kg (220 lb) VENDOR: [employer] Ordering: Front wheel walker Deliver to [facility] room #: 448A Questions: Device Needed: WALKER [...] Blood thinner have been sent to your [facility] in [facility]. Anticoagulation: xarelto 20 mg daily Call [...] For any problems or questions please call [phone] For issues on weeknights after 5pm and weekends please call [phone] and ask for the Vascular Fellow field artillery operations man. Geovanna-for your diabetes! Most important thing is [...] Tierney APRN - 07/20/2024 10:13 AM EDT [facility] Interventional Radiology Post Angiography Instructions Procedure: [...] hoildays, call and ask for the president and chief executive officer field artillery operations man. OR Vascular Department at until 4:45pm. After 4:45pm call [phone] and ask for the Vascular resident field artillery operations man. 10. If you are a diabetic and [...] Blood thinner have been sent to your [facility] in [facility]. Anticoagulation: xarelto 20 mg daily Call [...] For any problems or questions please call [phone] For issues on weeknights after 5pm and weekends please call [phone] and ask for the Vascular Fellow field artillery operations man. Geovanna-for your diabetes! Most important thing is [...] HCP Completion of AVS * Thuy Jiang, GOLD TOOLER - 07/21/2024 12:26 PM EDT Images from [...] Carb Controlled 60/60/75g Monitoring: BG Q4 Discharge Planning/care home diabetes care: Medications - Outpatient treatment [...] Thony Garcia MD at [facility] MAIN OR PRO CABG, ARTERY-VEIN, SINGLE 01/04/2012 @CABG, VENOUS & ARTERIAL GRAFT;SINGLE VEIN GRAFT performed by INNA TOVAR at [facility] MAIN OR PRO ENDOSCOPY W/VIDEO-ASST VEIN HARVEST, CABG 01/04/2012 ENDOSCOPIC HARVEST VEIN(S) FOR CABG performed by INNA TOVAR at [facility] MAIN OR Active Non-Hospital Problems Diagnosis CAD [...] Anne PT, Doctor of Physical Therapy Pager: [phone] Physical Therapy Inpatient Rehabilitation Department * Carlos [...] Vascular Surgery Post Op Check Geovanna Dixon JrFlorencio [...] Anne PT, Doctor of Physical Therapy Pager: [phone] Physical Therapy Inpatient Rehabilitation Department * Hailey Nick RN - 07/20/2024 10:00 AM EDT ANGIO NURSING DATABASE Name: Geovanna Dixon JrFlorencio Date of : 1975 AGE: 49 y.o. Address: [address] [place] [id number] Phone: [phone] (home) Mobile: Telephone Information: Referring Provider: Herminio [...] 2gm, Fentanyl 100 mcg, Versed 2 mg 929 to procedure room 3 via stretcher. Onto [...] [phone] ASSESSMENT Geovanna Llanos Zack Winter is a 49 y.o. years old male [...] Carb Controlled 60/60/75g Monitoring: BG Q4 Discharge Planning/care home diabetes care: Medications - Outpatient treatment [...] EDT Vascular Surgery Pre-Angio Note Geovanna Viet Dixon Jr. HPI: Geovanna Dixon is a 49 y.o. male with CLTI [...] vial 1-11 Units 1-11 Units Subcutaneous Q4H [facility] Cristiano Jones MD 5 Units at [...] Q6H PRN Cristiano Jones MD No current [facility]-ordered outpatient medications on file. Allergies No Known [...] 26 05/28/2024 INR 0.9 05/28/2024 Assessment: Geovanna P Zack Jr. is a 49 y.o. male with CLTI who presents to IR for LLE angiogram withpossible intervention. We have discussed the risks and benefits, patient would like to proceed. Plan for a right femoral arterial puncture for LLE angiogram with possible intervention Mal I ASA II Rubio Grimaldo MD Vascular Surgery [facility] Vascular Surgery Floor Pager: [phone] Vascular Surgery Consult Pager: [phone] * Rubio Grimaldo MD - 07/20/2024 8:00 [...] patient has been previously admitted to the [facility] Vascular Surgery service on 05/28 - 06/02 [...] Procedure Component Value - Date/Time Anaerobic Culture [[id number]] Collected: 07/19/24950 Lab Status: Preliminary result Specimen: Bone from Toe(s), Left Foot Updated: 07/20/24 1420 Anaerobic Culture No anaerobic organisms isolated to date Fungus culture [[id number]] Collected: 07/19/24950 Lab Status: Preliminary result Specimen: Bone from Toe(s), Left Foot Updated: 07/20/24 0931 Fungus Culture No fungus isolated to date Bone Culture [[id number]] Collected: 07/19/24950 Lab Status: Preliminary result Specimen: Bone from Toe(s), Left Foot Updated: 07/20/24 0650 Bone Culture No growth to date Gram Stain No neutrophils seen No microorganisms seen MRSA PCR Screen [[id number]] (Normal) Collected: 07/16/24 1407 Lab Status: Final result Specimen: Swab from Nares Updated: 07/17/24 1804 MRSA PCR Not Detected Narrative: This test was performed using the Xpert MRSA NxG test kit and is run on the [employer] GeneXpert Dx System. This test is cleared by the U.S. Food and Drug Administration for clinical use and its performance characteristics have been verified by the [facility] [employer] [facility] at [facility]. This test was performed using the Xpert MRSA NxG test kit and is run on the [employer] GeneXpert Dx System. This test is cleared by the U.S. Food and Drug Administration for clinical use and its performance characteristics have been verified by the [facility] [employer] [facility] at [facility]. New Studies: ABIs 07/17/24: Findings: Right Pressure (mm Hg) ELEN Waveform TBI Brachial Artery 152 Dorsalis Pedis (Ankle) Artery 167 1.10 Triphasic Posterior Tibial (Ankle) Artery 168 1.11 Triphasic Great Toe 141 0.93 Left Pressure (mm Hg) ELEN Waveform TBI Brachial Artery 149 Dorsalis Pedis (Ankle) Artery 83 0.55 [place]-Biphasic Posterior Tibial (Ankle) Artery 87 0.57 Monophasic [...] care associate that requested your imaging first. Angiogram Aortic [...] 2.6 cm vessel length at and just [id number], similar to prior. Anterior tibial artery: No [...] status: Full Rubio Grimaldo MD 07/20/2024 Pager: [phone] * Fallon Oliva MD - 07/19/2024 3:21 [...] as appropriate. Thanks. Oli Call, ELDON Beeper# [phone] * María Carranza APRN - 07/19/2024 9:54 [...] patient has been previously admitted to the [facility] Vascular Surgery service on 05/28 - 06/02 [...] intact, nonfocal, follows commands Labs: Recent Labs 07/19/2434407/18/24 03307/17/24341 WBC 12.45* 11.56* 11.02* HGB 13.6* [...] Component Value - Date/Time MRSA PCR Screen [[id number]] (Normal) Collected: 07/16/24 1407 Lab Status: Final result Specimen: Swab from Nares Updated: 07/17/241803 MRSA PCR Not Detected Narrative: This test was performed using the Xpert MRSA NxG test kit and is run on the [employer] GeneXpert Dx System. This test is cleared by the U.S. Food and Drug Administration for clinical use and its performance characteristics have been verified by the [facility] at [facility]. This test was performed using the Xpert MRSA NxG test kit and is run on the [employer] GeneXpert Dx System. This test is cleared by the U.S. Food and Drug Administration for clinical use and its performance characteristics have been verified by the [facility] at [facility]. New Studies: ABIs 07/17/24: Findings: Right Pressure (mm Hg) ELEN Waveform TBI Brachial Artery 152 Dorsalis Pedis (Ankle) Artery 167 1.10 Triphasic Posterior Tibial (Ankle) Artery 168 1.11 Triphasic Great Toe 141 0.93 Left Pressure (mm Hg) ELEN Waveform TBI Brachial Artery 149 Dorsalis Pedis (Ankle) Artery 83 0.55 [place]-Biphasic Posterior Tibial (Ankle) Artery 87 0.57 Monophasic [...] care associate that requested your imaging first. Angiogram Aortic [...] 2.6 cm vessel length at and just ovanm-obo-tnjz, similar to prior. Anterior tibial artery: No [...] your imaging first. Assessment & Plan: Geovanna Viet Dixon JrFlorencio [...] status: Full María Carranza APRN 07/19/2024 Pager: [phone] * Oli Call, PT - 07/18/2024 12:53 [...] 13 ; functional mobility OLI CALL, PT Pager:[phone] Physical Therapy Inpatient Rehabilitation Department * Fallon Oliva MD - 07/18/2024 10:33 AM EDT Vascular Surgery Progress Note Geovanna Dioxn Jr. is a 49 y.o. male with history of CAD s/p CABG, DM, obesity, NSTEMI, HTN, HLD, depression, tobacco use, and substance use who presented to the ED with concern for left foot pain andcolor changes. Vascular Surgery was consulted due to concern for left foot gangrene with infection.Of note, patient has been previously admitted to the [facility] Vascular Surgery service on 05/28 - 06/02 [...] 149 Dorsalis Pedis (Ankle) Artery 83 0.55 [place]-Biphasic Posterior Tibial (Ankle) Artery 87 0.57 Monophasic [...] care associate that requested your imaging first. Angiogram Aortic [...] 2.6 cm vessel length at and just xzhcw-kpx-bmxw, similar to prior. Anterior tibial artery: No [...] 07/18/2024 Vascular Surgery p.[phone] * Lakeisha Berry, GOLD TOOLER - 07/18/2024 10:00 AM EDT Glucose Management Team Inpatient Progress Note HPI Geovanna Dixon Jr. is a 49 y.o. 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 Original consult completed: 07/15 by [...] 205* 262* 262* 217* 184 ASSESSMENT Geovanna Llanos Zack . is a 49 y.o. years old [...] Carb Controlled 60/60/75g Monitoring: BG Q4 Discharge Planning/care home diabetes care: Medications - Outpatient treatment [...] the consulting service. Lakeisha Berry APRN, DNP, -[facility] Inpatient Diabetes Management Team Team pager #[phone] (DRAFT) Diabetes Discharge Instructions & Recommendations Check [...] EDT Physical Therapy Evaluation Patient profile: Geovanna Llanos Zack Winter is a 49 y.o. right handed male [...] by INNA TOVAR at [facility] MAIN OR PRO ENDOSCOPY W/VIDEO-ASST VEIN HARVEST, CABG 01/04/2012 ENDOSCOPIC HARVEST VEIN(S) FOR CABG performed by INNA TOVAR at [facility] MAIN OR Social History: Home set-up: Lives [...] Billing Code: evaluation OLI CALL, PT Pager: [phone] Physical Therapy Inpatient Rehabilitation Department * Lakeisha Berry, GOLD TOOLER - 07/17/2024 2:00 PM EDT Glucose Management Team Inpatient Progress Note HPI Geovanna Dixon Jr. is a 49 y.o. male from [place], [place], with PMH significant for T2DM IDDM [...] provide a review of [facility] diabetes care. Original consult completed: 07/15 by [...] 259* 205* 187 254* 324* ASSESSMENT Geovanna Llanos Zack Winter is a 49 y.o. years old male [...] Carb Controlled 60/60/75g Monitoring: BG Q4 Discharge Planning/care home diabetes care: Medications - Outpatient treatment [...] the consulting service. Lakeisha Berry APRN, DNP, -[facility] Inpatient Diabetes Management Team Team pager #[phone] * Hermila White APRN - 07/17/2024 7:45 [...] patient has been previously admitted to the [facility] Vascular Surgery service on 05/28 - 06/02 [...] TID insulin lispro 1-6 Units Subcutaneous Q4H [facility] insulin glargine (Lantus;Semglee) (100 unit/mL) subcutaneous [...] care associate that requested your imaging first. Angiogram Aortic [...] 2.6 cm vessel length at and just dheid-vmv-rdlh, similar to prior. Anterior tibial artery: No [...] (patient unsure whether he was taking this RUBBER GOODS INSPECTOR TESTER) - Glargine 50 units nightly; meal associated lispro ICR 1:6g; moderate correction scale q4hrs - Diabetes management team consult, appreciate recommendations - Home meds: Losartan, metoprolol, protriptyline, PPI, venlafaxine - Full code Hermila White APRN 07/17/2024 Pager: [phone] * Dai Carter RN - 07/17/2024 2:43 [...] patient has been previously admitted to the [facility] Vascular Surgery service on 05/28 - 06/02 [...] [phone]* [phone] Recent Labs 07/16/24 0415 07/16/247 07/15/24 0045 07/14/241938 NA -- 135 132* [...] care associate that requested your imaging first. Angiogram Aortic [...] 2.6 cm vessel length at and just kcoqb-ubk-pcfj, similar to prior. Anterior tibial artery: No [...] (patient unsure whether he was taking this RUBBER GOODS INSPECTOR TESTER) - Glargine 45 units nightly; meal associated lispro ICR 1:6g; moderate correction scale q4hrs - Diabetes management team consult, appreciate recommendations - Home meds: Losartan, metoprolol, protriptyline, PPI, venlafaxine - Full code Hermila White APRN 07/16/2024 Pager: [phone] * Dayanara Grover MD - 07/16/2024 8:52 AM EDT Follow Up Diabetes Consult ID:Geovanna Dixon . is a 49 y.o. male with PMH significant for T2DM, CAD s/p CABG, HTN, HLD, obesity, substance use disorder, recent admission in May for popliteal occlusion who was admitted on 07/14/2024 currently being treated for left toe gangrene and cellulitis. We are being consulted to assistwith diabetes management and to provide a review of [facility] diabetes care. Objective Temp: [36.8 ??C (98.2 ??F)-37 ??C (98.6 ??F)] Heart Rate: -- Resp: [16-18] BP: (123-173)/(82-124) SpO2: [94 %-99 %] Heart Rate from SpO2: [80 bpm-94 bpm] Recent Glucose Levels Recent Labs 07/16/24 0710 07/16/24 0414 07/16/24 0207 07/16/24 0004 07/15/2407/15/24 1641 07/15/24 1316 07/15/24 0834 07/15/24 0444 [...] he will need outpatient follow up at [facility] endocrine clinic. He lives in [facility], but notes he has a truck [...] primary team (vascular surgery). Dayanara Grover PGY-5 [facility] Endocrinology Associated attestation - Karen Reno MD [...] patient has been previously admitted to the [facility] Vascular Surgery service on 05/28 - 06/02 [...] or shortness of breath. - Last BM RUBBER GOODS INSPECTOR TESTER Objective: Temp: [36.4 ??C (97.5 ??F)-36.7 ??C [...] care associate that requested your imaging first. Angiogram Aortic [...] 2.6 cm vessel length at and just xkdxd-ilq-trfm, similar to prior. Anterior tibial artery: No [...] (patient unsure whether he was taking this RUBBER GOODS INSPECTOR TESTER) - Glargine 28 units nightly; meal associated lispro ICR 1:8g; moderate correction scale to [id number] - Diabetes management team consult - Home meds: Losartan, metoprolol, protriptyline, PPI, venlafaxine - Full code Hermila White APRN 07/15/2024 Pager: [phone] documented in this encounter H&P Notes * Dejah Marshall MD - 07/14/2024 10:16 PM EDT Images from the original note were not included. Vascular Surgery H&P Note Patient Name: Geovanna Dixon Jr. MR#: [id number] : 1975 Admission Date: 07/14/2024 History of [...] patient has been previously admitted to the [facility] Vascular Surgery service on 05/28 - 06/02 [...] by INNA TOVAR at [facility] MAIN OR PRO ENDOSCOPY W/VIDEO-ASST VEIN HARVEST, CABG 01/04/2012 ENDOSCOPIC HARVEST VEIN(S) FOR CABG performed by INNA TOVAR at [facility] MAIN OR Home Medications: Current Outpatient Medications [...] follows commands Data Reviewed: Labs: Recent Labs 07/15/244407/14/24 1939 WBC 11.70* [...] the last 72 hours. Recent Labs 07/14/24 194 LACTATEVEN 1.1 No results for input(s): PHART, TMX7XVV, PO2ART, FVR1WOU in the last 72 hours. Studies: No [...] as of 07/14/242151Jul 14, 20242029 Glucose(!): 341 2030 Creatinine(!): 0.53 2029 Anion Gap: 13 2029 [...] - 07/14/2024 4:47 PM EDT Sending Facility: [facility] Reason for Transfer: Vascular consult Report: Hx [...] GCS: 15 BGL: Temp: 36.8c Transporting Service: [place] Time of Departure: 1650 ETA: 1800 documented [...] MEDICARE Payor: [employer] MANAGED MEDICARE / Plan: [employer] MANAGED MEDICARE PPO / Product Type: *No Product type* / Secondary Insurance: N/A Prescription Coverage: Yes This plan was formulated with input from patient and team. All are in agreement with plan. IMM on shared list for RS to deliver. Phu Kennedy CONTROL OPERATOR FLOW COAT line manager [phone] * Plan of Care - Carlos Enrique [...] patient has been previously admitted to the [facility] Vascular Surgery service on 05/28 - 06/02 [...] No Patient is insured through: Primary Insurance: [employer] MANAGED MEDICARE Payor: [employer] MANAGED MEDICARE / Plan: [employer] MANAGED MEDICARE PPO / Product Type: *No [...] Jones MD - 07/19/2024 10:11 AM EDT [facility] Operative Note Patient Name: Geovanna Dixon Jr. : [id number] MR#: [id number] Case Date: 07/19/2024 Surgeon: Surgeons and Role: [...] VTE (Venous Thromboembolism) Risk Flowsheets (Taken 07/18/2024 135) VTE Prevention/Management: anticoagulant therapy Goal: Optimal Comfort [...] Intervention: Optimize Psychosocial Wellbeing Flowsheets (Taken 07/18/2024 135) Diversional Activities: television Spiritual Activities Assistance: affirmation provided Supportive Measures: active listening utilized * Consult Note - Lori Lane [facility] - 07/18/2024 10:46 AM EDT The pharmacist-managed [...] have. Alternately, during off-hours you may call [phone] to contact a pharmacist. * Plan of [...] patient has been previously admitted to the [facility] Vascular Surgery serviceon 05/28 - 06/02 of [...] by INNA TOVAR at [facility] MAIN OR PRO ENDOSCOPY W/VIDEO-ASST VEIN HARVEST, CABG 01/04/2012 ENDOSCOPIC HARVEST VEIN(S) FOR CABG performed by INNA TOVAR at [facility] MAIN OR Active Non-Hospital Problems Diagnosis CAD [...] only Total Minutes, Occupational Therapy: 23 (evaluation ([id number])) OT Evaluation Code Rationale: Diagnosis & Pertinent Co-Morbidities affecting Plan of Care: see PMHx Occupational Profile & Client History: Brief Expanded Extensive X Assessment of Occupational Performance: 1-3 performance deficits X 3-5 performance deficits 5 + performance deficits Clinical Decision Making: Low Moderate High X Clinical decision making of low complexity using standardized patient assessment instrument and measurable assessment of functional outcome. Pager: [phone] Camille Holloway OT 07/17/2024 Occupational Therapy Rehabilitation [...] surrogate would be surrogate decision maker per [place] surrogate decision making law. (Only good for 180 days) Any patient receiving care in [place] must abide by [place] law. The hierarchy for surrogate decision making [...] In the past 12 months has the [employer], [employer], or [employer] threatened to shut off services in your [...] DME: none Home Address confirmed as: [address], [place], [place] Social & Family Supports: All names [...] points: Addiction likely Other Pertinent/Service Specific Information: reading coach to see patient. Hx of cocaine use Health/Prescription Coverage: Primary nsurance: [employer] MANAGED MEDICARE Payor: [employer] MEDICARE / Plan: [employer] MANAGED MEDICARE PPO / Product Type: *No Product type* / Secondary Insurance: N/A ONLY if patient has Medicare A&B - Does this patient have secondary insurance?: No ; Why not?: Managed Medicare Prescription Coverage: Yes Preferred Pharmacy: [facility] - [place], [place] - [address] [address] [facility] - [place], [place] - [address] [address] [place] Status: Patient is a : No Primary [...] dry andstable, no open areas, no drainage. [place] with povidone- iodine daily and leave open [...] or the wound care team on pager [phone] with skin and wound care concerns or questions. * Consult Note - Cynthia Carreon - 07/17/2024 11:00 AM EDT PT sleeping RC will return. * Consult Note - Angel Oliva MD - 07/17/2024 8:52 AM EDT Images from the original note were not included. [facility] Cardiovascular Medicine [place] [id number] CARDIOLOGY CONSULT NOTE Date of Consultation: 07/17/2024 [...] tobacco/substance abuse, narcolepsy/cataplexy, who initially presented to [facility] ED with left foot wounds/cellulitis and concern for limb ischemia who was transferred to [facility] for vascular surgery assessment. Recent admit 05/2024 [...] patient has been previously admitted to the [facility] Vascular Surgery service on 05/28 - 06/02 [...] Q8H heparin (porcine) infusion 1,700 Units/hr (07/17/24 06) Physical Exam: Last value Range last 8 [...] Wing D at [facility] ED to Hosp-Admission (Discharged) from 05/28/2024 in Surgical Unit Level 4 Wing D at [facility] Weight 99.8 kg (220 lb) 1 [...] tobacco/substance abuse, narcolepsy/cataplexy, who initially presented to [facility] ED with left foot wounds/cellulitis and concern for limb ischemia [facility]. Recent admit 05/2024 for short segment left popliteal occlusion; he was treated with a heparin drip and antibiotics for cellulitis with improvement. He was discharged on Xarelto 2.5mg BID, aspirin and short course of Augmentin with instructions to be seen in 1 mo [facility], which he did not show for the [...] of an occluded SVG-RPDA graft with a MEDICAL UNDERWRITER of his right coronary artery. He has [...] questions or concerns arise. Angel Oliva MD, [facility] Staff Hotel Manager * Plan of Care - Lauren [...] provide a review of [facility] diabetes care. Diabetes History: Geovanna Dixon Jr. [...] he will need outpatient follow up at [facility] endocrine [facility] He lives in [facility], but notes he has a truck [...] primary team (vascular surgery). Dayanara Grover PGY-5 [facility] Endocrinology Associated attestation - Karen Reno MD [...] seen eye doctor in years, his triglycerides [id number] was very high, needs recheck and aggressive [...] 10/23/2024 1:00 PM EST Appointment XRay at [address] [place] [address] Isabela Hayward, [facility] [place] [address] 11/09/2024 1:30 PM EST Office [place] [address] Isabela Hayward [facility] [place] [address] 11/10/2024 10:00 AM EST Office [place] [address] Dai Whitman APRN 11/21/2024 2:15 PM EST Office [place] [address] Dayanara Grover MD [facility] [place] [address] documented as of this encounter Procedures Procedure [...] 49 AM EDT Amputation Toe, Mt-P Jt ([id number]) 07/19/2024 8:57 AM EDT peripheral artery disease [...] CARE TEST O RDERAHERNANDEZ Performing Organization Address [facility] Co de Phone Number [facility] [place] [address] * (ABNORMAL) POC, GLUCOSE (07/21/2024 12:18 PM EDT) Glucometer, POC 247(H) 65 - 199 mg/dL 07/21/2024 12:20 PM EDT [facility] Comment:Supplemental ranges: <140 mg/dL before meals <180 mg/dL all other times of the day. Blood CAPILLARY BLOOD / Unknown 07/21/2024 12:18 PM EDT 07/21/2024 12:20 PM EDT Thony Garcia MD POINT OF CARE TEST O RDERAHERNANDEZ Performing Organization Address City/[facility]/ZIP Co de Phone Number [facility] [place] [address] * POC, GLUCOSE (07/21/2024 8:37 AM EDT) Glucometer, POC 163 65 - 199 mg/dL 07/21/2024 8:38 AM EDT [facility] Comment:Supplemental ranges: <140 mg/dL before meals <180 mg/dL all other times of the day. Blood CAPILLARY BLOOD / Unknown 07/21/2024 8:37 AM EDT 07/21/2024 8:38 AM EDT Thony Garcia MD POINT OF CARE TEST O RDERABLES [facility] [place] [address] * (ABNORMAL) Basic Metabolic Panel (07/21/2024 5:55 AM EDT) Glucose 172 65 - 199 mg/dL 07/21/2024 6:45 AM EDT [facility] Comment:Glucose Concentratio n >=200 mg/dL plus symptoms is consistent with Diabetes Mellitus. Blood Urea Nitrogen 12 10 - 20 mg/dL 07/21/2024 6:45 AM EDT [facility] Creatinine 0.55(L) 0.80 - 1.50 mg/dL 07/21/2024 6:45 AM [facility] Sodium 138 135 - 145 mMol/L 07/21/2024 6:45 AM [facility] Potassium 4.1 3.5 - 5.0 mMol/L 07/21/2024 6:45 AM [facility] Chloride 103 98 - 107 mMol/L 07/21/2024 6:45 AM [facility] Carbon Dioxide 23 22 - 31 mMol/L 07/21/2024 6:45 AM [facility] Anion Gap 12 5 - 15 mMol/L 07/21/2024 6:45 AM [facility] Calcium 9.4 8.5 - 10.5 mg/dL 07/21/2024 6:45 AM [facility] MD CHEMISTRY ORDERABLES [facility] [place] [address] * (ABNORMAL) CBC (with Diff) (07/21/2024 5:55 AM EDT) White Blood Cell 10.11(H) 4.00 - 9.50 x10(3)/mc L 07/21/2024 6:17 AM EDT [facility] Red Blood Cell 4.52(L) 4.58 - 5.54 x10(6)/mc L 07/21/2024 6:17 AM EDT [facility] Hemoglobin 13.2(L) 13.7 - 16.5 g/dL 07/21/2024 6:17 AM [facility] Hematocrit 39.7(L) 40.5 - 48.5 % 07/21/2024 6:17 AM [facility] Mean Cell Volume 87.8 [...] - 357 x10(3)/mc L 07/21/2024 6:[facility] Mean Platelet Volume 9.3 7.6 - 12.9 fL 07/21/2024 6:17 AM EDT [facility] RDW Standard Deviation 42.2 36.0 [...] HEMATOLOGY ORDERABLE S [facility] [place] [address] * Phosphorus (07/21/2024 5:55 AM EDT) Phosphorus 3.9 2.5 - 4.5 mg/dL 07/21/2024 6:45 AM EDT [facility] Blood VENOUS BLOOD SPECIMEN / Unknown IP Care Team Draw / Unknown 07/21/2024 5:55 AM EDT 07/21/2024 6:13 AM EDT Thony Garcia MD CHEMISTRY ORDERABLES [facility] [place] [address] * Magnesium (07/21/2024 5:55 AM EDT) Magnesium 0.82 0.69 - 1.07 mMol/L 07/21/2024 6:45 AM EDT [facility] Blood VENOUS BLOOD SPECIMEN / Unknown IP Care Team Draw / Unknown 07/21/2024 5:55 AM EDT 07/21/2024 6:13 AM EDT Thony Garcia MD CHEMISTRY ORDERABLES [facility] [place] [address] * POC, GLUCOSE (07/21/2024 3:57 AM EDT) Glucometer, POC 163 65 - 199 mg/dL 07/21/2024 4:01 AM EDT [facility] Comment:Supplemental ranges: <140 mg/dL before meals <180 mg/dL all other times of the day. Blood CAPILLARY BLOOD / Unknown 07/21/2024 3:57 AM EDT 07/21/2024 4:01 AM EDT Thony Garcia MD POINT OF CARE TEST O GILDA [facility] [place] [address] * POC, GLUCOSE (07/20/2024 11:54 PM EDT) Glucometer, POC 190 65 - 199 mg/dL 07/20/2024 11:58 PM EDT [facility] Comment:Supplemental ranges: <140 mg/dL before meals <180 mg/dL all other times of the day. Blood CAPILLARY BLOOD / Unknown 07/20/2024 11:54 PM EDT 07/20/2024 11:58 PM EDT Thony Garcia MD POINT OF CARE TEST O GILDA Performing Organization Address [facility] Co de Phone Number [facility] [place] [address] * POC, GLUCOSE (07/20/2024 8:17 PM EDT) Glucometer, POC 166 65 - 199 mg/dL 07/20/2024 8:17 PM EDT [facility] Comment:Supplemental ranges: <140 mg/dL before meals <180 mg/dL all other times of the day. Blood CAPILLARY BLOOD / Unknown 07/20/2024 8:17 PM EDT 07/20/2024 8:18 PM EDT Thony Garcia MD POINT OF CARE TEST O GILDA [facility] [place] [address] * (ABNORMAL) POC, GLUCOSE (07/20/2024 3:51 PM EDT) Glucometer, POC 218(H) 65 - 199 mg/dL 07/20/2024 3:51 PM EDT [facility] Comment:Supplemental ranges: <140 mg/dL before meals <180 mg/dL all other times of the day. Blood CAPILLARY BLOOD / Unknown 07/20/2024 3:51 PM EDT 07/20/2024 3:51 PM EDT Thony Garcia MD POINT OF CARE TEST O GILDA Performing Organization Address City/[facility]/ZIP Co de Phone Number [facility] [place] [address] * POC, GLUCOSE (07/20/2024 10:55 AM EDT) Glucometer, POC 96 65 - 199 mg/dL 07/20/2024 10:56 AM EDT [facility] Comment:Supplemental ranges: <140 mg/dL before meals <180 mg/dL all other times of the day. Blood CAPILLARY BLOOD / Unknown 07/20/2024 10:55 AM EDT 07/20/2024 10:56 AM EDT Thony Garcia MD POINT OF CARE TEST Stephanie VO Performing Organization Address City/[facility]/ZIP Co de Phone Number [facility] [place] [address] * Vein Map Arm, Bilateral (07/20/2024 10:48 AM EDT) VB Text Report Department: Vascular Surgery Lab Patient: [id number] (GEOVANNA DIXON) CPT: 71213 Referring Physician: HTONY GARCIA ?? Indications: Patient with CLI, needs [...] Garcia MD VASCULAR ORDERABLES Performing Organization Address City/State/[facility] Co de Phone Number [facility] * VS Arteriogram Lower Extremity Vascular [...] patient has been previously admitted to the [facility] Vascular Surgery service on 05/28 - 06/02 [...] the sedation RN. Anabel Finney MD, MPH [facility] Vascular Surgery ? Thony Garcia MD IMG IR ORDERABLES * POC, GLUCOSE (07/20/2024 8:12 AM EDT) [facility] Glucometer, POC 119 65 - 199 mg/dL 07/20/2024 8:12 AM EDT [facility] Comment:Supplemental ranges: <140 mg/dL before meals <180 mg/dL all other times of the day. Blood CAPILLARY BLOOD / Unknown 07/20/2024 8:12 AM EDT 07/20/2024 8:12 AM EDT Thony Garcia MD POINT OF CARE TEST O RDERABLES [facility] [place] [address] * (ABNORMAL) CBC (with Diff) (07/20/2024 3:42 [...] 27.5 - 32.1 pg 07/20/2024 4:23 AM EDT [facility] Mean Cell Hemoglobin Concentration 33.2 32.0 - 35.7 g/dL 07/20/2024 4:23 AM EDT [facility] Platelet 458(H) 145 - 357 x10(3)/mc L 07/20/2024 4:23 AM EDT [facility] Mean Platelet Volume 9.5 7.6 - 12.9 fL 07/20/2024 4:23 AM EDT [facility] RDW Standard Deviation 42.5 36.0 - 45.0 fL 07/20/2024 4:23 AM EDT [facility] RDW coefficient of variation 13.2 [...] - 0.10 x10(3)/mc L 07/20/2024 4:23 AM [facility] Immature Gran % 0.6 % 4:23 AM [facility] Immature Gran Absolute 0.10(H) 0.00 - 0.04 x10(3)/mc L 07/20/2024 4:23 AM [facility] Blood VENOUS BLOOD SPECIMEN / Unknown IP Care Team Draw / Unknown 07/20/2024 3:42 AM EDT 07/20/2024 4:09 AM EDT Thony Garcia MD HEMATOLOGY ORDERABLE S Performing Organization Address City/[facility]/ZIP Co de Phone Number [facility] [place] [address] * (ABNORMAL) POC, GLUCOSE (07/20/2024 3:41 AM EDT) Glucometer, POC 204(H) 65 - 199 mg/dL 07/20/2024 3:41 AM EDT [facility] Comment:Supplemental ranges: <140 mg/dL before meals <180 mg/dL all other times of the day. Blood CAPILLARY BLOOD / Unknown 07/20/2024 3:41 AM EDT 07/20/2024 3:41 AM EDT Thony Garcia MD POINT OF CARE TEST O RDERABLES Performing Organization Address [facility]/ZIP Co de Phone Number [facility] [place] [address] * (ABNORMAL) Basic Metabolic Panel (07/20/2024 3:41 [...] MD CHEMISTRY ORDERABLES [facility] [place] [address] * Phosphorus (07/20/2024 3:41 AM EDT) Phosphorus 3.4 2.5 - 4.5 mg/dL 07/20/2024 4:40 AM EDT [facility] Blood VENOUS BLOOD SPECIMEN / Unknown IP Care Team Draw / Unknown 07/20/2024 3:41 AM EDT 07/20/2024 4:09 AM EDT Thony Garcia MD CHEMISTRY ORDERABLES [facility] [place] [address] * Magnesium (07/20/2024 3:41 AM EDT) Magnesium 0.90 0.69 - 1.07 mMol/L 07/20/2024 4:40 AM EDT [facility] Blood VENOUS BLOOD SPECIMEN / Unknown IP Care Team Draw / Unknown 07/20/2024 3:41 AM EDT 07/20/2024 4:09 AM EDT Thony Garcia MD CHEMISTRY ORDERABLES Performing Organization Address City/[facility]/ZIP Co de Phone Number [facility] [place] [address] * (ABNORMAL) POC, GLUCOSE (07/20/2024 12:56 AM EDT) [facility] Signature Glucometer, POC 342(H) 65 - 199 mg/dL 07/20/2024 12:58 AM EDT [facility] Comment:Supplemental ranges: <140 mg/dL before meals <180 mg/dL all other times of the day. Blood CAPILLARY BLOOD / Unknown 07/20/2024 12:56 AM EDT 07/20/2024 12:58 AM EDT Thony Garcia MD POINT OF CARE TEST O RDERABLES [facility] [place] [address] * (ABNORMAL) POC, GLUCOSE (07/19/2024 11:04 PM EDT) Glucometer, POC 296(H) 65 - 199 mg/dL 07/19/2024 11:05 PM EDT [facility] Comment:Supplemental ranges: <140 mg/dL before meals <180 mg/dL all other times of the day. Blood CAPILLARY BLOOD / Unknown 07/19/2024 11:04 PM EDT 07/19/2024 11:05 PM EDT Thony Garcia MD POINT OF CARE TEST O RDERABLES [facility] [place] [address] * (ABNORMAL) POC, GLUCOSE (07/19/2024 7:38 PM EDT) Glucometer, POC 251(H) 65 - 199 mg/dL 07/19/2024 7:39 PM EDT [facility] Comment:Supplemental ranges: <140 mg/dL before meals <180 mg/dL all other times of the day. Blood CAPILLARY BLOOD / Unknown 07/19/2024 7:38 PM EDT 07/19/2024 7:39 PM EDT Thony Garcia MD POINT OF CARE TEST O RDERAHERNANDEZ Performing Organization Address [facility]/ZIP Co de Phone Number [facility] [place] [address] * POC, GLUCOSE (07/19/2024 4:48 PM EDT) Glucometer, POC 171 65 - 199 mg/dL 07/19/2024 4:49 PM EDT [facility] Comment:Supplemental ranges: <140 mg/dL before meals <180 mg/dL all other times of the day. Blood CAPILLARY BLOOD / Unknown 07/19/2024 4:48 PM EDT 07/19/2024 4:49 PM EDT Thony Garcia MD POINT OF CARE TEST O RDERAHERNANEDZ [facility] [place] [address] * POC, GLUCOSE (07/19/2024 12:21 PM EDT) Glucometer, POC 143 65 - 199 mg/dL 07/19/2024 12:22 PM EDT [facility] Comment:Supplemental ranges: <140 mg/dL before meals <180 mg/dL all other times of the day. Blood CAPILLARY BLOOD / Unknown 07/19/2024 12:21 PM EDT 07/19/2024 12:22 PM EDT Thony Garcia MD POINT OF CARE TEST O RDERABLES [facility] [place] [address] * POC, GLUCOSE (07/19/2024 11:24 AM EDT) Glucometer, POC 111 65 - 199 mg/dL 07/19/2024 11:24 AM EDT [facility] Comment:Supplemental ranges: <140 mg/dL before meals <180 mg/dL all other times of the day. Blood CAPILLARY BLOOD / Unknown 07/19/2024 11:24 AM EDT 07/19/2024 11:24 AM EDT Thony Garcia MD POINT OF CARE TEST O RDERABLES [facility] [place] [address] * Anaerobic Culture (07/19/2024 9:51 AM EDT) Anaerobic Culture No anaerobic organisms isolated 07/23/2024 3:24 PM EDT [facility] Bone STRUCTURE OF TOE OF LEFT FOOT / Unknown 07/19/2024 9:51 AM EDT Comment:PERIPHERAL ARTERY DI SEASE Thony Garcia MD MICROBIOLOGY - GENER AL ORDERABLES [facility] [place] [address] * Bone Culture (07/19/2024 9:51 AM EDT) [...] - GENER AL ORDERABLES Performing Organization Address City/[facility] Co de Phone Number [facility] [place] [address] * AFB culture (07/19/2024 9:51 AM EDT) Acid Fast Bacilli Culture No acid fast bacilli isolated at 8 weeks. 09/13/2024 11:02 AM EST [facility] Bone STRUCTURE OF TOE OF LEFT FOOT / Unknown 07/19/2024 9:51 AM EDT 07/19/2024 10:08 AM EDT Comment:PERIPHERAL ARTERY DI SEASE Thony Garcia MD MICROBIOLOGY - GENER AL ORDERABLES Performing Organization Address [facility] Co de Phone Number [facility] [place] [address] * Fungus culture (07/19/2024 9:51 AM EDT) Fungus Culture No fungus isolated 08/22/2024 9:08 AM EDT [facility] Bone STRUCTURE OF TOE OF LEFT FOOT / Unknown 07/19/2024 9:51 AM EDT 07/19/2024 10:08 AM EDT Comment:PERIPHERAL ARTERY DI SEASE Thony Garcia MD MICROBIOLOGY - GENER AL ORDERABLES Performing Organization Address [facility] Co de Phone Number [facility] [place] [address] * Surgical Pathology (07/19/2024 9:49 AM EDT) Case Report Surgical Pathology Report ? Case: [id number] ? Authorizing Provider: ??Thony Garcia MD ?Collected: ? 07/19/2024 0949 ? Ordering Location: ? Main Operating Room [facility] ?? Received: ?07/19/2024 1009 ? [facility] ? [facility] ? Pathologist: ? Benjamin Shen [...] Sections/Process ing: Blocks submitted for decalcification: A1-A2. Equipment Service Lead sections in 2 cassettes as follows: A1-A2: Complete longitudinal section of digit cmk 07/26/2024 1:24 PM EDT [facility] Result Note Routine 07/26/2024 1:24 PM EDT [facility] Tissue STRUCTURE OF TOE OF LEFT FOOT / Unknown 07/19/2024 9:49 AM EDT 07/19/2024 10:09 AM EDT Comment:PERIPHERAL ARTERY DI SEASE Thony Garcia MD PATHOLOGY/CYTOLOGY O RDERAHERNANDEZ [facility] [place] [address] * POC, GLUCOSE (07/19/2024 7:21 AM EDT) Glucometer, POC 195 65 - 199 mg/dL 07/19/2024 7:22 AM EDT [facility] Comment:Supplemental ranges: <140 mg/dL before meals <180 mg/dL all other times of the day. Blood CAPILLARY BLOOD / Unknown 07/19/2024 7:21 AM EDT 07/19/2024 7:22 AM EDT Thony Garcia MD POINT OF CARE TEST O RDERABLES Performing Organization Address City/[facility]/ZIP Co de Phone Number [facility] [place] [address] * Heparin (unfractionated) Level (07/19/2024 6:29 AM [...] MD HEMATOLOGY ORDERABLE S Performing Organization Address City/[facility]/ZIP Co de Phone Number [facility] [place] [address] * POC, GLUCOSE (07/19/2024 4:24 AM EDT) Glucometer, POC 118 65 - 199 mg/dL 07/19/2024 4:24 AM EDT [facility] Comment:Supplemental ranges: <140 mg/dL before meals <180 mg/dL all other times of the day. Blood CAPILLARY BLOOD / Unknown 07/19/2024 4:24 AM EDT 07/19/2024 4:24 AM EDT Thony Garcia MD POINT OF CARE TEST O RDERABLES [facility] [place] [address] * (ABNORMAL) Basic Metabolic Panel (07/19/2024 3:45 AM EDT) Glucose 117 65 - 199 mg/dL 07/19/2024 4:40 AM EDT [facility] Comment:Glucose Concentratio n >=200 mg/dL plus symptoms is consistent with Diabetes Mellitus. Blood Urea Nitrogen 7(L) 10 - 20 mg/dL 07/19/2024 4:40 [facility] Creatinine 0.56(L) 0.80 - 1.50 mg/dL 07/19/2024 4:40 AM [facility] Sodium 138 135 - 145 mMol/L 07/19/2024 4:40 AM [facility] Potassium 3.9 3.5 - 5.0 mMol/L 07/19/2024 4:40 AM [facility] Chloride 103 98 - 107 mMol/L 07/19/2024 4:40 AM [facility] Carbon Dioxide 23 22 - 31 mMol/L 07/19/2024 4:40 AM [facility] Anion Gap 12 5 - 15 mMol/L 07/19/2024 4:40 AM [facility] Calcium 9.6 8.5 - 10.5 mg/dL 07/19/2024 4:40 AM [facility] [...] Garcia MD CHEMISTRY ORDERABLES Performing Organization Address City/State/[facility] Co de Phone Number [facility] [place] [address] * (ABNORMAL) CBC (with Diff) (07/19/2024 3:45 AM EDT) White Blood Cell 12.45(H) 4.00 - 9.50 x10(3)/mc L 07/19/2024 4:09 AM EDT [facility] Red Blood Cell 4.72 4.58 - 5.54 x10(6)/mc L 07/19/2024 4:09 AM EDT [facility] Hemoglobin 13.6(L) 13.7 - 16.5 g/dL 07/19/2024 4:09 AM EDT [facility] Hematocrit 41.0 40.5 - 48.5 % 07/19/2024 4:09 AM EDT [facility] Mean Cell Volume 86.9 82.9 - 93.1 fL 07/19/2024 4:09 AM EDT [facility] Mean Cell Hemoglobin 28.8 27.5 - 32.1 pg 07/19/2024 4:09 AM [facility] Mean Cell Hemoglobin Concentration [...] - 3.20 x10(3)/mc L 07/19/2024 4:09 AM [facility] Monocyte % 7.5 % 07/19/2024 4:09 AM [facility] Monocyte Absolute 0.93(H) 0.30 - 0.90 x10(3)/mc L 07/19/2024 4:09 AM [facility] Eos % 1.9 % 07/19/2024 4:09 AM [facility] Eos Absolute 0.24 0.00 [...] HEMATOLOGY ORDERABLE S [facility] [place] [address] * Phosphorus (07/19/2024 3:45 AM EDT) Phosphorus 4.3 2.5 - 4.5 mg/dL 07/19/2024 4:40 AM EDT [facility] Blood VENOUS BLOOD SPECIMEN / Unknown IP Care Team Draw / Unknown 07/19/2024 3:45 AM EDT 07/19/2024 4:00 AM EDT Thony Garcia MD CHEMISTRY ORDERABLES [facility] [place] [address] * Magnesium (07/19/2024 3:45 AM EDT) Magnesium 0.89 0.69 - 1.07 mMol/L 07/19/2024 4:40 AM EDT [facility] Blood VENOUS BLOOD SPECIMEN / Unknown IP Care Team Draw / Unknown 07/19/2024 3:45 AM EDT 07/19/2024 4:00 AM EDT Thony Garcia MD CHEMISTRY ORDERABLES Performing Organization Address [facility] Co de Phone Number [facility] [place] [address] * POC, GLUCOSE (07/19/2024 12:01 AM EDT) Glucometer, POC 186 65 - 199 mg/dL 07/19/2024 12:02 AM EDT [facility] Comment:Supplemental ranges: <140 mg/dL before meals <180 mg/dL all other times of the day. Blood CAPILLARY BLOOD / Unknown 07/19/2024 12:01 AM EDT 07/19/2024 12:02 AM EDT Thony Garcia MD POINT OF CARE TEST O RDERAHERNANDEZ Performing Organization Address [facility] Co de Phone Number [facility] [place] [address] * POC, GLUCOSE (07/18/2024 9:46 PM EDT) Glucometer, POC 185 65 - 199 mg/dL 07/18/2024 9:47 PM EDT [facility] Comment:Supplemental ranges: <140 mg/dL before meals <180 mg/dL all other times of the day. Blood CAPILLARY BLOOD / Unknown 07/18/2024 9:46 PM EDT 07/18/2024 9:47 PM EDT Thony Garcia MD POINT OF CARE TEST O GILDA Performing Organization Address [facility] Co de Phone Number [facility] [place] [address] * POC, GLUCOSE (07/18/2024 3:20 PM EDT) Glucometer, POC 134 65 - 199 mg/dL 07/18/2024 3:20 PM EDT [facility] Comment:Supplemental ranges: <140 mg/dL before meals <180 mg/dL all other times of the day. Blood CAPILLARY BLOOD / Unknown 07/18/2024 3:20 PM EDT 07/18/2024 3:21 PM EDT Thony Garcia MD POINT OF CARE TEST O GILDA Performing Organization Address [facility] Co de Phone Number [facility] [place] [address] * (ABNORMAL) POC, GLUCOSE (07/18/2024 11:53 AM EDT) Glucometer, POC 244(H) 65 - 199 mg/dL 07/18/2024 11:53 AM EDT [facility] Comment:Supplemental ranges: <140 mg/dL before meals <180 mg/dL all other times of the day. Blood CAPILLARY BLOOD / Unknown 07/18/2024 11:53 AM EDT 07/18/2024 11:54 AM EDT Thony Garcia MD POINT OF CARE TEST O GILDA Performing Organization Address [facility] de Phone Number [facility] [place] [address] * Vancomycin Level, Random (07/18/2024 8:01 AM EDT) Pathologist Matilde Vancomycin, Random 17.2 mg/L 2023 9:40 AM EDT [facility] Comment:This level is for de termination of the patient's vancomycin abto-rqxpg-jrn-curve (AUC) value. Contact the inpatient pharmacy for interpretation. Blood VENOUS BLOOD SPECIMEN / Unknown IP Care Team Draw / Unknown 07/18/2024 8:01 AM EDT 07/18/2024 8:39 AM EDT Thony Garcia MD CHEMISTRY ORDERABLES Performing Organization Address [facility] [facility] de Phone Number [facility] [place] [address] * POC, GLUCOSE (07/18/2024 7:21 AM EDT) Glucometer, POC 177 65 - 199 mg/dL 07/18/2024 7:22 AM EDT [facility] Comment:Supplemental ranges: <140 mg/dL before meals <180 mg/dL all other times of the day. Blood CAPILLARY BLOOD / Unknown 07/18/2024 7:21 AM EDT 07/18/2024 7:22 AM EDT Thony Garcia MD POINT OF CARE TEST O RDERABLES [facility] [place] [address] * Heparin (unfractionated) Level (07/18/2024 3:33 AM [...] HEMATOLOGY ORDERABLE S [facility] [place] [address] * (ABNORMAL) Basic Metabolic Panel (07/18/2024 3:33 AM EDT) Glucose 170 65 - 199 mg/dL 07/18/2024 4:50 AM EDT [facility] Comment:Glucose Concentratio n >=200 mg/dL plus symptoms is consistent with Diabetes Mellitus. Blood Urea Nitrogen 8(L) 10 - 20 mg/dL 07/18/2024 4:[facility] Creatinine 0.53(L) 0.80 - 1.50 mg/dL 07/18/2024 4:50 AM [facility] Sodium 136 135 - 145 mMol/L 07/18/2024 4:50 AM [facility] Potassium 4.3 3.5 - 5.0 mMol/L 07/18/2024 4:50 AM [facility] Chloride 101 98 - 107 mMol/L 07/18/2024 4:50 AM [facility] Carbon Dioxide 23 22 - 31 mMol/L 07/18/2024 4:50 AM [facility] Anion Gap 12 5 - 15 mMol/L 07/18/2024 4:50 AM [facility] Calcium 9.2 8.5 - 10.5 mg/dL 07/18/2024 4:50 AM [facility] Est Glomerular Filtration Rate - Male 122 mL/min/1. 73 m?? 07/18/2024 4:50 AM [facility] MD CHEMISTRY ORDERABLES [facility] [place] [address] * (ABNORMAL) CBC (with Diff) (07/18/2024 3:33 AM EDT) White Blood Cell 11.56(H) 4.00 - 9.50 x10(3)/mc L 07/18/2024 4:26 AM [facility] Red Blood Cell 4.55(L) 4.58 - 5.54 x10(6)/mc L 07/18/2024 4:26 AM [facility] Hemoglobin 13.4(L) 13.7 - 16.5 g/dL 07/18/2024 4:26 AM [facility] Hematocrit 40.2(L) 40.5 - 48.5 % 07/18/2024 4:26 AM [facility] Mean Cell Volume 88.4 [...] - 0.40 x10(3)/mc L 07/18/2024 4:26 AM [facility] Basophil % 0.8 % 07/18/2024 4:26 AM [facility] Baso Absolute 0.09 0.00 - 0.10 x10(3)/mc L 07/18/2024 4:26 AM [facility] Immature Gran % 0.6 % 4:26 AM EDT [facility] Immature Gran Absolute 0.07(H) 0.00 - 0.04 x10(3)/mc L 07/18/2024 4:26 AM EDT [facility] Blood VENOUS BLOOD SPECIMEN / Unknown IP Care Team Draw / Unknown 07/18/2024 3:33 AM EDT 07/18/2024 4:21 AM EDT Thony Garcia MD HEMATOLOGY ORDERABLE S [facility] [place] [address] * Phosphorus (07/18/2024 3:33 AM EDT) Phosphorus 3.7 2.5 - 4.5 mg/dL 07/18/2024 4:50 AM EDT [facility] Blood VENOUS BLOOD SPECIMEN / Unknown IP Care Team Draw / Unknown 07/18/2024 3:33 AM EDT 07/18/2024 4:21 AM EDT Thony Garcia MD CHEMISTRY ORDERABLES [facility] [place] [address] * Magnesium (07/18/2024 3:33 AM EDT) Magnesium 0.88 0.69 - 1.07 mMol/L 07/18/2024 4:50 AM EDT [facility] Blood VENOUS BLOOD SPECIMEN / Unknown IP Care Team Draw / Unknown 07/18/2024 3:33 AM EDT 07/18/2024 4:21 AM EDT Thony Garcia MD CHEMISTRY ORDERABLES [facility] [place] [address] * LDL Cholesterol, Direct (07/18/2024 3:33 AM [...] MD CHEMISTRY ORDERABLES [facility] [place] [address] * HDL/Cholesterol Profile (07/18/2024 3:33 AM EDT) [...] AM EDT 07/18/2024 4:21 AM EDT [facility] - 07/18/2024 4:50 AM [...] ACC/AHA Guidelines (most recently Johann et al. [facility] 08/11/22): * For individuals with atherosclerotic [...] Garcia MD CHEMISTRY ORDERABLES Performing Organization Address [facility] de Phone Number [facility] [place] [address] * (ABNORMAL) POC, GLUCOSE (07/18/2024 3:21 AM EDT) Glucometer, POC 200(H) 65 - 199 mg/dL 07/18/2024 3:22 AM EDT [facility] Comment:Supplemental ranges: <140 mg/dL before meals <180 mg/dL all other times of the day. Blood CAPILLARY BLOOD / Unknown 07/18/2024 3:21 AM EDT 07/18/2024 3:22 AM EDT Thony Garcia MD POINT OF CARE TEST O RDERABLES Performing Organization Address [facility] Phone Number [facility] [place] [address] * (ABNORMAL) POC, GLUCOSE (07/18/2024 12:44 AM EDT) Glucometer, POC 216(H) 65 - 199 mg/dL 07/18/2024 12:44 AM EDT [facility] Comment:Supplemental ranges: <140 mg/dL before meals <180 mg/dL all other times of the day. Blood CAPILLARY BLOOD / Unknown 07/18/2024 12:44 AM EDT 07/18/2024 12:44 AM EDT Thony Garcia MD POINT OF CARE TEST O RDERAHERNANDEZ Performing Organization Address [facility] de Phone Number [facility] [place] [address] * (ABNORMAL) POC, GLUCOSE (07/17/2024 9:02 PM EDT) Glucometer, POC 294(H) 65 - 199 mg/dL 07/17/2024 9:02 PM EDT [facility] Comment:Supplemental ranges: <140 mg/dL before meals <180 mg/dL all other times of the day. Blood CAPILLARY BLOOD / Unknown 07/17/2024 9:02 PM EDT 07/17/2024 9:03 PM EDT Thony Garcia MD POINT OF CARE TEST O GILDA [facility] [place] [address] * (ABNORMAL) POC, GLUCOSE (07/17/2024 4:07 PM EDT) Glucometer, POC 219(H) 65 - 199 mg/dL 07/17/2024 4:07 PM EDT [facility] Comment:Supplemental ranges: <140 mg/dL before meals <180 mg/dL all other times of the day. Blood CAPILLARY BLOOD / Unknown 07/17/2024 4:07 PM EDT 07/17/2024 4:07 PM EDT Thony Garcia MD POINT OF CARE TEST O GILDA [facility] [place] [address] * (ABNORMAL) POC, GLUCOSE (07/17/2024 11:31 AM EDT) Glucometer, POC 255(H) 65 - 199 mg/dL 07/17/2024 11:32 AM EDT [facility] Comment:Supplemental ranges: <140 mg/dL before meals <180 mg/dL all other times of the day. Blood CAPILLARY BLOOD / Unknown 07/17/2024 11:31 AM EDT 07/17/2024 11:32 AM EDT Thony Garcia MD POINT OF CARE TEST O GILDA Performing Organization Address [facility] de Phone Number [facility] [place] [address] * POC, GLUCOSE (07/17/2024 7:38 AM EDT) Glucometer, POC 112 65 - 199 mg/dL 07/17/2024 7:38 AM EDT [facility] Comment:Supplemental ranges: <140 mg/dL before meals <180 mg/dL all other times of the day. Blood CAPILLARY BLOOD / Unknown 07/17/2024 7:38 AM EDT 07/17/2024 7:38 AM EDT Thony Garcia MD POINT OF CARE TEST O GILDA Performing Organization Address [facility] de Phone Number [facility] [place] [address] * ELEN, legs, multiple levels (07/17/2024 6:31 AM EDT) VB Text Report Department: Vascular Surgery Lab Patient: [id number] (GEOVANNA DIXON) CPT: 43960 Referring Physician: VIBHA TIERNEY ?? Indications: PAD [...] ? Dorsalis Pedis (Ankle) Artery ?83 ?0.55 ??Crow Wing-Biphasic ? Posterior Tibial (Ankle) Artery ??87 ?0.57 [...] TEST O RDERABLES [facility] [place] [address] * Heparin (unfractionated) Level (07/17/2024 3:42 AM [...] MD HEMATOLOGY ORDERABLE S Performing Organization Address City/[facility]/ZIP Co de Phone Number [facility] [place] [address] * Phosphorus (07/17/2024 3:42 AM EDT) Phosphorus 3.6 2.5 - 4.5 mg/dL 07/17/2024 4:47 AM EDT [facility] Blood VENOUS BLOOD SPECIMEN / Unknown IP Care Team Draw / Unknown 07/17/2024 3:42 AM EDT 07/17/2024 4:15 AM EDT Thony Garcia MD CHEMISTRY ORDERABLES Performing Organization Address City/[facility]/ZIP Co de Phone Number [facility] [place] [address] * Magnesium (07/17/2024 3:42 AM EDT) Magnesium 0.78 0.69 - 1.07 mMol/L 07/17/2024 4:47 AM EDT [facility] Blood VENOUS BLOOD SPECIMEN / Unknown IP Care Team Draw / Unknown 07/17/2024 3:42 AM EDT 07/17/2024 4:15 AM EDT Thony Garcia MD CHEMISTRY ORDERABLES [facility] [place] [address] * (ABNORMAL) Basic Metabolic Panel (07/17/2024 3:42 AM EDT) Glucose 225(H) 65 - 199 mg/dL 07/17/2024 4:47 AM EDT [facility] Comment:Glucose Concentratio n >=200 mg/dL plus symptoms is consistent with Diabetes Mellitus. Blood Urea Nitrogen 9(L) 10 - 20 mg/dL 07/17/2024 4:47 AM EDT [facility] Creatinine 0.49(L) 0.80 - 1.50 mg/dL 07/17/2024 4:47 AM T [facility] Sodium 135 135 - 145 mMol/L 07/17/2024 4:47 AM [facility] Potassium 3.7 3.5 - 5.0 mMol/L 07/17/2024 4:47 AM [facility] Chloride 103 98 - 107 mMol/L 07/17/2024 4:47 AM [facility] Carbon Dioxide 21(L) 22 - 31 mMol/L 07/17/2024 4:47 [facility] Anion Gap 11 5 - 15 mMol/L 07/17/2024 4:47 AM [facility] Calcium 9.1 8.5 - 10.5 mg/dL 07/17/2024 4:47 AM [facility] Est Glomerular Filtration Rate - Male 125 mL/min/1. 73 m?? 07/17/2024 4:47 AM [facility] MD CHEMISTRY ORDERABLES [facility] [place] [address] * (ABNORMAL) CBC (with Diff) (07/17/2024 3:42 AM EDT) White Blood Cell 11.02(H) 4.00 - 9.50 x10(3)/mc L 07/17/2024 4:21 AM [facility] Red Blood Cell 4.43(L) 4.58 - 5.54 x10(6)/mc L 07/17/2024 4:21 AM [facility] Hemoglobin 13.1(L) 13.7 - 16.5 g/dL 07/17/2024 4:21 AM [facility] Hematocrit 38.8(L) 40.5 - [...] - 0.90 x10(3)/mc L 07/17/2024 4:21 AM [facility] Eos % 1.6 % 07/17/2024 4:21 AM [facility] Eos Absolute 0.18 0.00 - 0.40 x10(3)/mc L 07/17/2024 4:21 AM [facility] Basophil % 0.5 % 07/17/2024 4:21 AM [facility] Baso Absolute 0.05 0.00 [...] HEMATOLOGY ORDERABLE S [facility] [place] [address] * (ABNORMAL) POC, GLUCOSE (07/17/2024 2:25 AM EDT) Glucometer, POC 262(H) 65 - 199 mg/dL 07/17/2024 2:25 AM EDT [facility] Comment:Supplemental ranges: <140 mg/dL before meals <180 mg/dL all other times of the day. Blood CAPILLARY BLOOD / Unknown 07/17/2024 2:25 AM EDT 07/17/2024 2:25 AM EDT Thony Garcia MD POINT OF CARE TEST O RDERABLES [facility] [place] [address] * (ABNORMAL) POC, GLUCOSE (07/17/2024 12:19 AM EDT) Glucometer, POC 262(H) 65 - 199 mg/dL 07/17/2024 12:19 AM EDT [facility] Comment:Supplemental ranges: <140 mg/dL before meals <180 mg/dL all other times of the day. Blood CAPILLARY BLOOD / Unknown 07/17/2024 12:19 AM EDT 07/17/2024 12:20 AM EDT Thony Garcia MD POINT OF CARE TEST O GILDA Performing Organization Address [facility] de Phone Number [facility] [place] [address] * (ABNORMAL) POC, GLUCOSE (07/16/2024 8:22 PM EDT) Glucometer, POC 217(H) 65 - 199 mg/dL 07/16/2024 8:23 PM EDT [facility] Comment:Supplemental ranges: <140 mg/dL before meals <180 mg/dL all other times of the day. Blood CAPILLARY BLOOD / Unknown 07/16/2024 8:22 PM EDT 07/16/2024 8:23 PM EDT Thony Garcia MD POINT OF CARE TEST O GILDA Performing Organization Address [facility] de Phone Number [facility] [place] [address] * POC, GLUCOSE (07/16/2024 3:47 PM EDT) Glucometer, POC 184 65 - 199 mg/dL 07/16/2024 3:47 PM EDT [facility] Comment:Supplemental ranges: <140 mg/dL before meals <180 mg/dL all other times of the day. Blood CAPILLARY BLOOD / Unknown 07/16/2024 3:47 PM EDT 07/16/2024 3:48 PM EDT Thony Garcia MD POINT OF CARE TEST O GILDA Performing Organization Address [facility] Co de Phone Number [facility] [place] [address] * Heparin (unfractionated) Level (07/16/2024 3:39 PM [...] HEMATOLOGY ORDERABLE S [facility] [place] [address] * Potassium (07/16/2024 3:39 PM EDT) [facility] Potassium 3.9 3.5 - 5.0 mMol/L 07/16/2024 4:15 PM EDT [facility] Blood VENOUS BLOOD SPECIMEN / Unknown IP Care Team Draw / Unknown 07/16/2024 3:39 PM EDT 07/16/2024 3:47 PM EDT Hermila White APRN CHEMISTRY ORDERABL ES Performing Organization Address City/[facility]/ZIP Co de Phone Number [facility] [place] [address] * MRSA PCR Screen (07/16/2024 2:07 PM EDT) Pathologist [facility] MRSA PCR Not Detected 07/17/2024 6:04 PM EDT [facility] Swab BOTH ANTERIOR NARES / Unknown Non Blood Collection / Unknown 07/16/2024 2:07 PM EDT 07/16/2024 2:13 PM EDT Narrative [facility] - 07/17/2024 6:04 PM EDT This test was performed using the Xpert MRSA NxG test kit and is run on the [employer] GeneXpert Dx System. This test is cleared by the U.S. Food and Drug Administration for clinical use and its performance characteristics have been verified by the [facility] at [facility]. This test was performed using the Xpert MRSA NxG test kit and is run on the [employer] GeneXpert Dx System. This test is cleared by the U.S. Food and Drug Administration for clinical use and its performance characteristics have been verified by the [facility] [employer] [facility] [employer] [facility] at [facility]. Hermila White APRN MOLECULAR ORDERABL ES Performing Organization Address [facility] Co de Phone Number [facility] [place] [address] * POC, GLUCOSE (07/16/2024 1:33 PM EDT) Glucometer, POC 183 65 - 199 mg/dL 07/16/2024 1:33 PM EDT [facility] Comment:Supplemental ranges: <140 mg/dL before meals <180 mg/dL all other times of the day. Blood CAPILLARY BLOOD / Unknown 07/16/2024 1:33 PM EDT 07/16/2024 1:33 PM EDT Thony Garcia MD POINT OF CARE TEST O RDERABLES Performing Organization Address [facility]/ZIP Co de Phone Number [facility] [place] [address] * (ABNORMAL) POC, GLUCOSE (07/16/2024 11:41 AM EDT) Glucometer, POC 259(H) 65 - 199 mg/dL 07/16/2024 11:41 AM EDT [facility] Comment:Supplemental ranges: <140 mg/dL before meals <180 mg/dL all other times of the day. Blood CAPILLARY BLOOD / Unknown 07/16/2024 11:41 AM EDT 07/16/2024 11:41 AM EDT Thony Garcia MD POINT OF CARE TEST O RDERABLES Performing Organization Address [facility] Co de Phone Number [facility] [place] [address] * Heparin (unfractionated) Level (07/16/2024 9:41 AM [...] MD HEMATOLOGY ORDERABLE S Performing Organization Address [facility]/ZIP Co de Phone Number [facility] [place] [address] * (ABNORMAL) POC, GLUCOSE (07/16/2024 7:10 AM EDT) Glucometer, POC 205(H) 65 - 199 mg/dL 07/16/2024 7:11 AM EDT [facility] Comment:Supplemental ranges: <140 mg/dL before meals <180 mg/dL all other times of the day. Blood CAPILLARY BLOOD / Unknown 07/16/2024 7:10 AM EDT 07/16/2024 7:11 AM EDT Thony Garcia MD POINT OF CARE TEST O RDERABLES [facility] [place] [address] * (ABNORMAL) Potassium (07/16/2024 4:15 AM EDT) Potassium 3.2(L) 3.5 - 5.0 mMol/L 07/16/2024 4:53 AM EDT [facility] Blood VENOUS BLOOD SPECIMEN / Unknown IP Care Team Draw / Unknown 07/16/2024 4:15 AM EDT 07/16/2024 4:23 AM EDT Thony aGrcia MD CHEMISTRY ORDERABLES Performing Organization Address [facility] Co de Phone Number [facility] [place] [address] * Phosphorus (07/16/2024 4:15 AM EDT) Phosphorus 3.7 2.5 - 4.5 mg/dL 07/16/2024 4:53 AM EDT [facility] Blood VENOUS BLOOD SPECIMEN / Unknown IP Care Team Draw / Unknown 07/16/2024 4:15 AM EDT 07/16/2024 4:23 AM EDT Thony Garcia MD CHEMISTRY ORDERABLES Performing Organization Address [facility] Co de Phone Number [facility] [place] [address] * POC, GLUCOSE (07/16/2024 4:14 AM EDT) Glucometer, POC 187 65 - 199 mg/dL 07/16/2024 4:17 AM EDT [facility] Comment:Supplemental ranges: <140 mg/dL before meals <180 mg/dL all other times of the day. Blood CAPILLARY BLOOD / Unknown 07/16/2024 4:14 AM EDT 07/16/2024 4:17 AM EDT Thony Garcia MD POINT OF CARE TEST O GILDA Performing Organization Address [facility] de Phone Number [facility] [place] [address] * (ABNORMAL) POC, GLUCOSE (07/16/2024 2:07 AM EDT) Glucometer, POC 254(H) 65 - 199 mg/dL 07/16/2024 2:08 AM EDT [facility] Comment:Supplemental ranges: <140 mg/dL before meals <180 mg/dL all other times of the day. Blood CAPILLARY BLOOD / Unknown 07/16/2024 2:07 AM EDT 07/16/2024 2:08 AM EDT Thony Garcia MD POINT OF CARE TEST O GILDA Performing Organization Address [facility] de Phone Number [facility] [place] [address] * Heparin (unfractionated) Level (07/16/2024 2:07 AM [...] MD HEMATOLOGY ORDERABLE S Performing Organization Address [facility] Co de Phone Number [facility] [place] [address] * Magnesium (07/16/2024 2:07 AM EDT) Magnesium 0.83 0.69 - 1.07 mMol/L 07/16/2024 2:47 AM EDT [facility] Blood VENOUS BLOOD SPECIMEN / Unknown IP Care Team Draw / Unknown 07/16/2024 2:07 AM EDT 07/16/2024 2:14 AM EDT Thony Garcia MD CHEMISTRY ORDERABLES Performing Organization Address [facility] Co de Phone Number [facility] [place] [address] * (ABNORMAL) Basic Metabolic Panel (07/16/2024 2:07 [...] 135 - 145 mMol/L 07/16/2024 2:57 AM EDT [facility] Potassium 07/16/2024 2:57 AM EDT [facility] Comment:Unable to report due to hemolysis Chloride 101 98 - 107 mMol/L 07/16/2024 2:57 AM EDT [facility] Carbon Dioxide 22 22 - 31 mMol/L 07/16/2024 2:57 AM EDT [facility] Anion Gap 12 5 - 15 mMol/L 07/16/2024 2:57 AM EDT [facility] Calcium 9.0 8.5 - 10.5 mg/dL 07/16/2024 2:57 AM EDT [facility] Est Glomerular Filtration Rate - Male 131 mL/min/1. 73 m?? 07/16/2024 2:57 [facility] Comment: This patient's estimated [...] MD CHEMISTRY ORDERABLES [facility] [place] [address] * (ABNORMAL) CBC (with Diff) (07/16/2024 2:07 AM EDT) White Blood Cell 11.08(H) 4.00 - 9.50 x10(3)/mc L 07/16/2024 2:23 AM [facility] Red Blood Cell 4.29(L) 4.58 - 5.54 x10(6)/mc L 07/16/2024 2:23 AM [facility] Hemoglobin 12.7(L) 13.7 - 16.5 g/dL 07/16/2024 2:23 AM [facility] Hematocrit 36.6(L) 40.5 - 48.5 % 07/16/2024 2:23 AM [facility] Mean Cell Volume 85.3 82.9 - 93.1 fL 07/16/2024 2:23 AM [facility] Mean Cell Hemoglobin 29.6 27.5 - 32.1 pg 07/16/2024 2:23 AM [facility] Mean Cell Hemoglobin Concentration 34.7 32.0 - 35.7 g/dL 07/16/2024 2:23 AM [facility] Platelet 363(H) 145 - 357 x10(3)/mc L 07/16/2024 2:23 AM [facility] Mean Platelet Volume 10.3 7.6 - 12.9 fL 07/16/2024 2:23 AM [facility] RDW Standard Deviation 39.2 36.0 - 45.0 fL 07/16/2024 2:23 AM [facility] HEMATOLOGY ORDERABLE S [facility] [place] [address] * (ABNORMAL) POC, GLUCOSE (07/16/2024 12:04 AM EDT) [facility] Signature Glucometer, POC 324(H) 65 - 199 mg/dL 07/16/2024 12:05 AM EDT [facility] Comment:Supplemental ranges: <140 mg/dL before meals <180 mg/dL all other times of the day. Blood CAPILLARY BLOOD / Unknown 07/16/2024 12:04 AM EDT 07/16/2024 12:05 AM EDT Thony Garcia MD POINT OF CARE TEST Stephanie VO Performing Organization Address [facility] de Phone Number [facility] [place] [address] * (ABNORMAL) POC, GLUCOSE (07/15/2024 8:36 PM EDT) Glucometer, POC 274(H) 65 - 199 mg/dL 07/15/2024 8:36 PM EDT [facility] Comment:Supplemental ranges: <140 mg/dL before meals <180 mg/dL all other times of the day. Blood CAPILLARY BLOOD / Unknown 07/15/2024 8:36 PM EDT 07/15/2024 8:36 PM EDT Thony Garcia MD POINT OF CARE TEST Stephanie VO Performing Organization Address [facility] de Phone Number [facility] [place] [address] * Heparin (unfractionated) Level (07/15/2024 8:21 PM [...] PM EDT 07/15/2024 8:26 PM EDT Thony Gacria MD HEMATOLOGY ORDERABLE S Performing Organization Address [facility] Co de Phone Number [facility] [place] [address] * (ABNORMAL) POC, GLUCOSE (07/15/2024 4:41 PM EDT) Glucometer, POC 275(H) 65 - 199 mg/dL 07/15/2024 4:42 PM EDT [facility] Comment:Supplemental ranges: <140 mg/dL before meals <180 mg/dL all other times of the day. Blood CAPILLARY BLOOD / Unknown 07/15/2024 4:41 PM EDT 07/15/2024 4:42 PM EDT Thony Garcia MD POINT OF CARE TEST O RDERABLES Performing Organization Address [facility] Co de Phone Number [facility] [place] [address] * (ABNORMAL) Vancomycin, trough (07/15/2024 2:19 PM EDT) Vancomycin, Trough 9.7(L) 10.0 - 20.0 mg/L 07/15/2024 3:28 PM EDT [facility] Comment: Varies according to infection source. Blood VENOUS BLOOD SPECIMEN / Unknown IP Care Team Draw / Unknown 07/15/2024 2:19 PM EDT 07/15/2024 3:00 PM EDT Thony Garcia MD CHEMISTRY ORDERABLES Performing Organization Address [facility]/ZIP Co de Phone Number [facility] [place] [address] * (ABNORMAL) POC, GLUCOSE (07/15/2024 1:16 PM EDT) Glucometer, POC 223(H) 65 - 199 mg/dL 07/15/2024 1:17 PM EDT [facility] Comment:Supplemental ranges: <140 mg/dL before meals <180 mg/dL all other times of the day. Blood CAPILLARY BLOOD / Unknown 07/15/2024 1:16 PM EDT 07/15/2024 1:18 PM EDT Thony Garcia MD POINT OF CARE TEST O RDERABLES Performing Organization Address [facility] Co de Phone Number [facility] [place] [address] * POC, GLUCOSE (07/15/2024 8:34 AM EDT) Glucometer, POC 133 65 - 199 mg/dL 07/15/2024 8:35 AM EDT [facility] Comment:Supplemental ranges: <140 mg/dL before meals <180 mg/dL all other times of the day. Blood CAPILLARY BLOOD / Unknown 07/15/2024 8:34 AM EDT 07/15/2024 8:35 AM EDT Thony Garcia MD POINT OF CARE TEST O GILDA [facility] [place] [address] * (ABNORMAL) POC, GLUCOSE (07/15/2024 4:44 AM EDT) Glucometer, POC 224(H) 65 - 199 mg/dL 07/15/2024 4:44 AM EDT [facility] Comment:Supplemental ranges: <140 mg/dL before meals <180 mg/dL all other times of the day. Blood CAPILLARY BLOOD / Unknown 07/15/2024 4:44 AM EDT 07/15/2024 4:44 AM EDT Thony Garcia MD POINT OF CARE TEST O GILDA Performing Organization Address [facility]/ZIP Co de Phone Number [facility] [place] [address] * (ABNORMAL) POC, GLUCOSE (07/15/2024 2:48 AM EDT) Glucometer, POC 281(H) 65 - 199 mg/dL 07/15/2024 2:48 AM EDT [facility] Comment:Supplemental ranges: <140 mg/dL before meals <180 mg/dL all other times of the day. Blood CAPILLARY BLOOD / Unknown 07/15/2024 2:48 AM EDT 07/15/2024 2:48 AM EDT Thony Garcia MD POINT OF CARE TEST O GILDA Performing Organization Address City/[facility]/ZIP Co de Phone Number [facility] [place] [address] * (ABNORMAL) Basic Metabolic Panel (07/15/2024 12:45 [...] MD CHEMISTRY ORDERABLES [facility] [place] [address] * (ABNORMAL) CBC (with Diff) (07/15/2024 12:45 [...] Neutrophil % 74.9 % 07/15/2024 1:05 AM [facility] Neutrophil Absolute (ANC) - Automated 8.75(H) 1.70 - 6.10 x10(3)/mc L 07/15/2024 1:05 AM [facility] Lymph % 16.3 % 07/15/2024 1:05 AM [facility] Lymph Absolute 1.91 0.90 [...] HEMATOLOGY ORDERABLE S [facility] [place] [address] * (ABNORMAL) POC, GLUCOSE (07/15/2024 12:29 AM EDT) [facility] Signature Glucometer, POC 394(H) 65 - 199 mg/dL 07/15/2024 12:30 AM EDT [facility] Comment:Supplemental ranges: <140 mg/dL before meals <180 mg/dL all other times of the day. Blood CAPILLARY BLOOD / Unknown 07/15/2024 12:29 AM EDT 07/15/2024 12:30 AM EDT Thony Garcia MD POINT OF CARE TEST O RDERABLES [facility] [place] [place] [address] * CT Angiogram Aortic Lower Extremity Runoff (07/14/2024 11:57 PM EDT) WORKSTATION ID [id number] [facility] Anatomical Region Laterality Modality Abdomen [...] 2.6 cm vessel length at and just [id number], similar to prior. Anterior tibial artery: No [...] the intravenous administration of contrast. 149 cc [id number]. Maximum intensity projection (MIP) were reformatted. 3-D [...] 2.6 cm vessel length at and just [id number], similar toprior. Anterior tibial artery: No stenosis. [...] care associate that requested your imaging first. Thony Garcia MD IMG CT ORDERABLES * XR Foot Min 3 views Left (Generic) (07/14/2024 9:11 PM EDT) [email or web address] Signature WORKSTATION ID [id number] RAD Anatomical Region Laterality Modality Foot Left [...] care associate that requested your imaging first. Arthur Patel DO IMG DX ORDERABLES * Lactate Whole Blood POC (07/14/2024 7:41 PM EDT) Lactate, Whole Blood 1.1 0.5 - 2.2 mmol/L 07/14/2024 7:42 PM EDT [facility] Blood ARTERIAL BLOOD / Unknown 07/14/2024 7:41 PM EDT 07/14/2024 7:42 PM EDT Unknown POINT OF CARE TEST O RDERABLES [facility] [place] [address] * (ABNORMAL) Basic Metabolic Panel (07/14/2024 7:39 [...] PM EDT 07/14/2024 7:46 PM EDT Arthur Jorge AG CHEMISTRY ORDERABLES [facility] [place] [address] * (ABNORMAL) CBC (with Diff) (07/14/2024 7:39 [...] 36.0 - 45.0 fL 07/14/2024 7:50 [facility] R[facility] coefficient of variation 12.6 11.4 - 13.8 % 07/14/2024 7:50 PM [facility] NRBC% auto 0.0 % 07/14/2024 7:50 PM [facility] NRBC Absolute 0.00 0.00 - 0.00 x10(3)/mc L 07/14/2024 7:50 PM [facility] Neutrophil % 67.3 % 07/14/2024 7:50 PM [facility] Neutrophil Absolute (ANC) - Automated 5.85 1.70 - 6.10 x10(3)/mc L 07/14/2024 7:50 PM [facility] Lymph % 23.4 % 07/14/2024 7:50 PM [facility] Lymph Absolute 2.03 0.90 - 3.20 x10(3)/mc L 07/14/2024 7:50 PM [facility] Monocyte % 6.8 % 07/14/2024 7:50 PM [facility] Monocyte Absolute 0.59 0.30 - 0.90 x10(3)/mc L 07/14/2024 7:50 PM [facility] Eos % 1.7 % 07/14/2024 7:50 PM [facility] Eos Absolute 0.15 0.00 - 0.40 x10(3)/mc L 07/14/2024 7:50 PM [facility] Basophil % 0.3 % 07/14/2024 7:50 PM [facility] Baso Absolute 0.03 0.00 - 0.10 x10(3)/mc L 07/14/2024 7:50 PM [facility] Immature Gran % 0.5 % 7:50 PM [facility] Immature Gran Absolute 0.04 0.00 - 0.04 x10(3)/mc L 07/14/2024 7:50 PM EDT [facility] Blood VENOUS BLOOD SPECIMEN / Unknown Venipuncture / Unknown 07/14/2024 7:39 PM EDT 07/14/2024 7:46 PM EDT Arthur Patel HEMATOLOGY ORDERABLE S [facility] [place] [address] documented in this encounter Visit Diagnoses Not [...] over 4 Hours, Warning Vesicant/Irritant Medication Per dog sitter labeling, do not administer or Y-site with [...] Oral, 3 TIMES DAILY, First dose on 07/17/24 at 1200, Until Discontinued, Routine Given 07/21/2024 [...] RN) 0951 (Given - Provider: Nava Huggins, RN) atorvastatin (Lipitor) tablet 80 mg 80 mg, Oral, EVERY EVENING, First dose on Wed07/14/24 at 2225, Until Discontinued, Routine 0857 (JAN Hold - Provider: Admin Adt - Reason: Transfer to a Procedural area)1206 (JAN Unhold - Provider: Admin Adt)1725 (Given - Provider: Gavin Rudd, RN) 1613 (Given - Provider: Jaja Diallo RN) 1714 (Given - Provider: Nava Huggins, RN) [...] Prophylaxis 0948 (New Bag - Provider: Hailey Nick RN)1018 (Stopped - Provider: Lauren Zavala RN) heparin (porcine) (5,000 units/1 mL) subcutaneous injection 5,000 Units (CANCELED) 5,000 Units, Subcutaneous, EVERY 8 HOURS SCHEDULED, First dose on Wed07/19/24 at 2200, Until Discontinued, Routine 2111 (Given - Provider: Anabel Jonas RN) 0625 (Given - Provider: Anabel Jonas RN)1321 (Given - Provider: Lauren Zavala, DAVID) [...] Admin Adt)1800 (Given - Provider: Gavin Rudd, RN) 0800 (Not Given - Provider: Lauren Zavala, DAVID - Reason: NPO)1400 (Given - Provider: Lauren Zavala, DAVID)1757 (Given - Provider: Lauren Zavala, RN) 0957 (Given - Provider: Nava Huggins, DAVID)1305 (Given - Provider: Nava Hugigns, DAVID)1700 (Due) insulin lispro (HumaLOG;Admelog) (100 unit/mL) [...] area)0900 (Automatically Held - Provider: Admin Adt)1206 ([facility] Unhold - Provider: Admin Adt)1303 (Given - Provider: Enid Johnson LPN) 1321 (Given - Provider: Lauren Zavala RN) 0950 (Given - Provider: Nava Huggins, DAVID) pantoprazole EC (Protonix) tablet 40 mg 40 mg, Oral, DAILY, First dose on 07/15/24 at 0900, Until Discontinued 0857 (JAN Hold - Provider: Admin Adt - Reason: Transfer to a Procedural area)0900 (Automatically Held - Provider: Admin Adt)1206 ([facility] Unhold - Provider: Admin Adt) 1321 (Given - Provider: Lauren Zavala, DAVID) 0950 (Given - Provider: Nava Huggins, DAVID) piperacillin-tazobactam (Zosyn) 3.375 g vial attach to sodium chloride 0.9% 50 mL Mini-Bag Plus 3.375 g, Intravenous, EVERY 8 HOURS, First dose on 07/16/24 at 1230, Until Discontinued, Administer over 4 Hours, Warning Vesicant/Irritant Medication Per dog sitter labeling, do not administer or Y-site with lactated ringers., Indication for (Active or Suspected): Sinusitis/Pharyngitis 0147 (Stopped - Provider: Cecilia Cm, RN)0419 (New Bag - Provider: Cecilia Cm [...] Zavala, DAVID)1702 (Stopped - Provider: Lauren Zavala, DAVID)203 (New Bag - Provider: Anabel Jonas RN) 0037 (Stopped - Provider: Carlos Enrique Knowles RN)0409 (New Bag - Provider: Carlos Enrique Knowles RN)0809 (Stopped - Provider: Nava Huggins, DAVID)1307 (New Bag - Provider: Nava Huggins, RN)1707 (Stopped - Provider: Nava Huggins, DAVID) [...] comment - Comment: too close to next dose)161 (Given - Provider: Jaja Diallo RN)2026 (Given - Provider: Anabel Jonas RN) 1109 (Given - Provider: Nava Huggins, RN - Comment: missing medication rx notified)1522 [...] Provider: Enid Johnson LPN - Reason: Patient/family refused)2099 (Not Given - Provider: Anabel Jonas RN - Reason: Patient/family refused) 1321 (Given - Provider: Lauren Zavala RN)2026 (Given - Provider: Anabel Jonas RN) 0950 [...] Admin Adt)1206 (MAR Unhold - Provider: Admin Adt)2008 (Given - Provider: Anabel Jonas RN) 0900 (Due)2100 (Given - Provider: Anabel Jonas RN) 0954 (Given - Provider: Nava Huggins, DAVID) venlafaxine (Effexor) tablet 225 mg 225 mg, Oral, DAILY, First dose on Wed07/17/24 at 0900, Until Discontinued, Routine 0857 (JAN Hold - Provider: Admin Adt - Reason: Transfer to a Procedural area)0900 (Automatically Held - Provider: Admin Adt)1206 (MAR Unhold - Provider: Admin Adt)1306 (Given - [...] RN) 1759 (Stopped - Provider: Nava Huggins, DAVID) PRN Medication Order 07/19/2024 07/20/2024 07/21/2024 acetaminophen [...] Transfer to a Procedural area)1206 ([facility] Unhold - Provider: Admin Adt)2305 (Given - [...] Nick, DAVID)1002 (Given - Provider: Hailey Nick, RN) glucagon [...] before administering the next dose. , Routine 856 (JAN Hold - Provider: Admin Adt - Reason: Transfer to a Procedural area)120 (JAN Unhold - Provider: Admin Adt) glucose [...] weight of tube = 37.5 grams.), Routine 08 (JAN Hold - Provider: Admin Adt - [...] than 70 mg/dL., Routine 0857 ([facility] Hold - Provider: Admin Adt - Reason: Transfer to a Procedural area)1206 ([facility] Unhold - Provider: Admin Adt) lactulose (Chronulac) (0.67 gram/mL) oral liquid 20 g(Linked Group 3) 20 g, Oral, DAILY PRN, Starting on 07/15/24 at 1431, Until Wed07/21/24 at 2209, Constipation, Give if no BM 24 hr after prior interventions or if BM is desired within 2 hr. Give concomitantly with any scheduled bowel medications ordered, Routine 0857 ([facility] Hold - Provider: Admin Adt - Reason: Transfer to a Procedural area)1206 ([facility] Unhold - Provider: Admin Adt) lactulose [...] medications ordered. , Routine 0857 ([facility] Hold - Provider: Admin Adt - Reason: Transfer to a Procedural area)1206 ([facility] Unhold - Provider: Admin Adt) lidocaine (Xylocaine) 1% (10 mg/mL) injection 3 mg 3 mg (0.3 mL), Subcutaneous, ONCE PRN, 1 dose, Starting on Wed07/14/24 at 2208, Until Wed07/21/24 at 220, for discomfort with PIV insertion, Routine 0857 ([facility] Hold - Provider: Admin Adt - Reason: Transfer to a Procedural area)1206 ([facility] Unhold - Provider: Admin Adt) magnesium [...] area)1206 (JAN Unhold - Provider: Admin Adt) melatonin tablet [...] 45 minutes if ineffective. , Routine 0857 ([facility] Hold - Provider: Admin Adt - Reason: Transfer to a Procedural area)1206 ([facility] Unhold - Provider: Admin Adt) oxyCODONE [...] medications ordered. , Routine 0857 ([facility] Hold - Provider: Admin Adt - Reason: Transfer to a Procedural area)1206 ([facility] Unhold - Provider: Admin Adt) prochlorperazine (Compazine) (5 mg/mL) injection 10 mg(Linked Group 6) 10 mg, Intravenous, EVERY 6 HOURS PRN, Starting on Wed07/14/24 at 2208, Until Wed07/21/24 at 2209, Nausea, Nausea/Vomiting, If multiple antiemetics are ordered, use ondansetron first. If ondansetron ineffective use prochlorperazine. Only give IV if unable to take PO, Routine 0857 ([facility] Hold - Provider: Admin Adt - Reason: Transfer to a Procedural area)1206 ([facility] Unhold - Provider: Admin Adt) prochlorperazine [...] Routine documented in this encounter Care Teams Deer Farmer Relationship Specialty Start Date End Date None None PCP - General 05/27/24 09/17/24 documented as of this encounter
--- OUTSIDE RECORDS SUMMARY | 2024-10-20 12:52 | XMS_ITS | Encounter Summary ---
Author Organization [facility] Address [facility] [place] [address] Care Team Providers Care Manager Safe Name Role Phone None Primary Care Provider Unavailabl e Encounter Details Date Type Department Care Team (Late st Contact Info) Description 05/28/2024 11:55 AM EDT Ancillary Procedure Radiology Library at [facility] [place] [phone] Jerry Marin MD [facility] [place] [address] Social History Tobacco Use Types Packs/Day Years Used Date Smoking Tobacco: Every Day Cigarettes 1 25 Started: 12/28/1986; Last attempted to quit: 12/28/2011 Alcohol Use Standard Drinks/Week Comments No 0 (1 standard drink = 0.6 oz pur e alcohol) [facility] Utilities Answer Date Recorded In the past 12 months has e [employer], gas, oil, or water [employer] threatened to shut off services in your [...] time in the past 12 m [facility], were you homeless or living in a half-way (including now)? No 05/29/2024 IPV Inpatient Questions [...] 10/23/2024 1:00 PM EST Appointment XRay at [address] [place] [phone] Isabela Hayward, [facility] INFECTIOUS [place] [address] 11/09/2024 1:30 PM EST Office [place] [phone] Isabela Hayward [facility] INFECTIOUS [place] [address] 11/10/2024 10:00 AM EST Office [place] [phone] Dai Whitman APRN 11/21/2024 2:15 PM EST Office [place] [address] Dayanara Grover MD [facility] DR [place]OCRIN[place] [address] documented as of this encounter Procedures Procedure [...] Marin MD IMG FILM LIBRARY ORD ERABLES [place], [place] documented in this encounter Visit Diagnoses Not on filedocumented in this encounter Care Teams Manager Safe Relationship Specialty Start Date End Date None None PCP - General 05/27/24 09/17/24 documented as of this encounter
--- OUTSIDE RECORDS SUMMARY | 2024-10-20 12:52 | XMS_ITS | Encounter Summary ---
[place] [address] Care Team Providers Care Oil Truck Driver Name Role Phone None Primary Care Provider Unavailabl e Encounter Details Date Type Department Care Team (Late st Contact Info) Description 07/18/2024 5:26 PM EDT Anesthesia [place] [address] Jules Rivera MD [facility] [place] [address] Jonnathan Scott, [facility] [place] [address] Anesthesia Record Procedure Summary Procedure Name Responsible [...] other (see comments) (vertical yung drain site); [place] drain site 10/06/24 0900 by Liana Mccormack [...] the past 12 months has th e [employer], gas, oil, or water [employer] threatened to shut off services in your [...] any time in the past 12 m [facility], were you homeless or living in a snf (including now)? No 07/17/2024 DH IPV Inpatient [...] performed by INNA TOVAR at [facility] MAIN OR ??? PRO ENDOSCOPY W/VIDEO-ASST VEIN HARVEST, CABG 01/04/2012 ENDOSCOPIC HARVEST VEIN(S) FOR CABG performed by INNA TOVAR at [facility] MAIN OR Social History Tobacco [...] 15 oz) Last edited 07/18/24 1200 by JM Anesthesia Physical Exam Last Filed Perioperative Cognitive [...] 10/23/2024 1:00 PM EST Appointment XRay at [address] [place] [phone] Isabela Hayward APRN [facility] INFECTIOUS DISEASE [place] [address] 11/09/2024 1:30 PM EST Office [place] [phone] Isabela Hayward, MOLDED RUBBER GOODS CUTTER [facility] [place] [address] 11/10/2024 10:00 AM EST Office [place] [phone] Dai Whitman, [facility] 11/21/2024 2:15 PM EST Office [place] [phone] Dayanara Grover MD [facility] [place] [address] documented as of this encounter Visit Diagnoses Not on filedocumented in this encounter Care Teams Oil Truck Driver Relationship Specialty Start Date End Date None None PCP - General 05/27/24 09/17/24 documented as of this encounter
--- OUTSIDE RECORDS SUMMARY | 2024-10-20 12:52 | XMS_ITS | Encounter Summary ---
Author Organization [facility] [place] [address] Care Team Providers Care Neurophysiological Technician Name Role Phone None Primary Care [...] 0.6 oz pur e alcohol) [facility] Utilities Answer Date Recorded In the past [...] living in a custodial (including now)? No 05/29/2024 IPV Inpatient Questions [...] 10/23/2024 1:00 PM EST Appointment XRay at [address] [place] [phone] Isabela Hayward, COLLAR FOLDER OPERATOR [facility] INFECTIOUS [place] [address] 11/09/2024 1:30 PM EST Office [place] [phone] Isabela Hayward [facility] INFECTIOUS [place] [address] 11/10/2024 10:00 AM EST Office Visit [place] [phone] Dai Whitman APRN 11/21/2024 2:15 PM EST Office [place] [phone] Dayanara Grover MD [facility] [place]IN[place] [address] documented as of this encounter Visit Diagnoses Not on filedocumented in this encounter Care Teams Neurophysiological Technician Relationship Specialty Start Date End Date None None PCP - General 05/27/24 09/17/24 documented as of this encounter
--- OUTSIDE RECORDS SUMMARY | 2024-10-20 12:52 | XMS_ITS | Encounter Summary ---
[place] [address] Care Team Providers Care Public Policy Mediator Name Role Phone None Primary Care Provider Unavailabl e Reason for Referral * Diagnostic Test (Routine) - Authorized Specialty Diagnoses / Procedures Referred By Contac t Referred To Contact Diagnoses Limb ischemia Critical limb ischemia of left lower extremity Procedures Arterial Duplex Leg, Unil Preston Dee MD [facility] [place] [address] [facility] [address] [place] [phone] Referral ID Status Reason Start Date Expiration Date Visits Requested Visits Authorized [id number] Authorized Specialty Service Requested 06/02/2024 06/02/2025 1 1 * Diagnostic Test (Routine) - Authorized Specialty Diagnoses / Procedures Referred By Contac t Referred To Contact Diagnoses Limb ischemia Procedures ELEN, legs, multiple levels Preston Dee MD [facility] [place] [address] [facility] [address] [place] [phone] Referral ID Status Reason Start Date Expiration Date Visits Requested Visits Authorized [id number] Authorized Specialty Service Requested 06/02/2024 06/02/2025 1 1 Reason for Visit * Reason Comments Circulatory Problem * Auth/Cert (Routine) Specialty Diagnoses / Procedures Referred By Contac t Referred To Contact Diagnoses Limb ischemia Critical limb ischemia of left lower extremity calf pain Procedures ER IPI Jerry Marin MD [facility] [place] [address] [facility] Referral ID Status Reason Start Date Expiration Date Visits Re quested Visits Authorized [id number] 1 1 Encounter Details Date Type Department Care Team (Latest Contact Info) Description 05/28/2024 5:40 PM EDT - 06/02/2024 6:45 PM EDT Hospital Encounter Surgical Unit Level [place] [address] Arthur Patel DO [facility] [place] [address] Jerry Marin MD [facility] [place] [address] Limb ischemia; Critical limb ischemia of left lower extremity Discharge Disposition: Home Social History Tobacco Use Types Packs/Day Years Used Date Smoking Tobacco: Every Day Cigarettes 1 25 Started: 12/28/1986; Last attempted to quit: 12/28/2011 Alcohol Use Standard Drinks/Week Comments No 0 (1 standard drink = 0.6 oz pur e alcohol) [facility] Utilities Answer Date Recorded In the past 12 months has e [employer], gas, oil, or water [employer] threatened to shut off services in [...] in a penitentiary (including now)? No 05/29/2024 DH IPV Inpatient [...] substance use, narcolepsy/cataplexy, who initially presented to [facility] ED with c/o 3d acute onset left calf pain. CTA revealed short segment popliteal occlusion with distal reconstitution. On arrival to [facility] he is hemodynamically normal on RA. He [...] up to date on transfer documentation from [facility]. Hospital Course: Geovanna was immediately [...] 05/30/2024 11:20 AM) Result Value WORKSTATION ID [id number] NM Pharmacologic Stress and Rest Myocardial Perfusion (Exam End: 05/30/2024 10:40 AM) Result Value WORKSTATION ID [id number] Impression 1. There is a small sized, [...] please contact the health director of career services that requested your imaging first. Electronically signed by: Angel Oliva MD, [facility] ([phone]), at 05/30/2024 2:[address] Lower Extremity w Contrast Left (Exam End: 05/30/2024 7:27 PM) Result Value WORKSTATION ID [id number] Impression 1. Occlusion of the popliteal artery [...] please contact the health director of career services that requested your imaging first. Electronically signed by: Ignacia Chi MD, [facility] ([phone]), at 05/31/2024 3:33 PM Labs: Recent Results [...] Left Result Value Ref Range WORKSTATION ID [id number] Rapid Drug Screen, Urine (IVAN Request) Result [...] Negative mcL Appearance UA Clear Clear Spec [place] UA >=1.030 (A) 1.005 - 1.030 Color [...] Text Report Department: Vascular Surgery Lab Patient: [id number] (GEOVANNA DXION) CPT: 67555 Referring Physician: JERRY MARIN Phone: Indications: Left [...] thrombosis. Comparison: No previous study in our tn scular lab database for comparison. Electronically Signed [...] 65 - 199 mg/dL MRSA PCR Screen ([facility]/CGP/APD/NL) Specimen: Nasopharyngeal Swab Specimen Type->Nasopharyngeal Swab Result Value Ref Range MRSA Result Negative Negative MRSA Interp Methicillin-resistant Staphylococcus aureus (MRSA) is NOT DETECTED The MRSA target DNA sequences (mec and SCC) were not detected within the acceptable ranges using the Xpert MRSA NxG on the GeneXevOLED Dx System (Cepheid). This suggests the absence of MRSA in the patient specimen submitted for testing. This test is cleared by the U.S. Food and Drug Administration for clinical use and its performance characteristics have been verified by the [facility] at [facility]. This result does not rule out the [...] Process Instructions: There is no in-house vascular laboratory associate available on weeknights (5pm-8am), weekends, or holidays. IF THIS IS A REQUEST FOR AN EMERGENT STUDY DURING THOSE HOURS, please have the senior provider responsible for the patient page the Vascular Surgery Fellow/Senior Resident regional company truck driver to discuss options. Scheduling Instructions: Questions: Indication for study/signs & symptoms: L poplital artery occlusion and PAD Question to be answered: Adequacy of LLE perfusion Preferred location?: [facility] Clinics Arterial Duplex Leg, Unil [VAS32 Custom] 07/03/2024 (Approximate) 01/02/2025 Process Instructions: There is no in-house vascular laboratory associate available on weeknights (5pm-8am), weekends, or holidays. IF THIS IS A REQUEST FOR AN EMERGENT STUDY DURING THOSE HOURS, please have the senior provider responsible for the patient page the Vascular Surgery Fellow/Senior Resident regional company truck driver to discuss options. Scheduling Instructions: Questions: Indication for study/signs & symptoms: L popliteal occlusion in setting of PAD Question to be answered: adequate arterial flow in lower leg, particularly near site of occlusion Laterality: Left Is there a LEFT LOWER EXTREMITY graft?: No Lower limb left segments: Popliteal Common Femoral Profunda Superficial Femoral Tibial Is there a stent?: No Preferred location?: [facility] Clinics Anticoagulation & Antiplatelet: Anticoagulation: Agent: Xarelto 2.5mg BID Indication: Left popliteal artery occlusion Intended Duration: Indefinitely, will discuss at follow-up appointment Antiplatelet: Agent: Aspirin 81mg Indication: CAD Intended Duration: Indefinitely For questions regarding these medications, please contact Vascular Surgery at [phone]. For issues on weeknights after 5pm and weekends please call [phone] and ask for the Vascular Fellow kuldeep. [...] For any problems or questions please call [phone] For issues on weeknights after 5pm and weekends please call [phone] and ask for the Vascular Fellow regional company truck driver. Vascular Surgery Contact Information: For any problems or questions please call [phone] For issues on weeknights after 5pm and weekends please call [phone] and ask for the Vascular Fellow regional company truck driver. documented in this encounter Discharge Instructions * [...] to have your insulin doses adjusted. [facility]/[address] [id number] [email or web address] Hours Wed through Wednesday 8:00am [...] For any problems or questions please call [phone] For issues on weeknights after 5pm and weekends please call [phone] and ask for the Vascular Fellow regional company truck driver. * Attachments The following attachments cannot be sent through Care Everywhere. * Direct Oral Anticoagulants: Non-Vitamin K Antagonist (Welsh) documented in this encounter Medications at Time [...] for 5 days. 10 tablet 06/02/2024 06/07/2024 atorvastatin (Lipitor) 80 mg tablet Take 1 tablet by mouth every evening. 90 tablet 3 06/02/2024 10/10/2024 insulin lispro (humaLOG KwikPen) 100 unit/mL Insulin PenIndications:type 2 diabetes mellitus Inject SQ 3 times daily before meals: 10 unit meal dose plus sliding scale 1:20>140 - see insulin chart for instructions Indications: type 2 diabetes mellitus 15 mL 06/02/2024 10/10/2024 insulin needles, disposable, 32 gauge x NeedleIndications:d iabetes mellitus Inject 1 each subcutaneously 4 times daily. Indications: diabetes 400 each 06/02/2024 07/21/2024 insulin glargine (Lantus) 100 unit/mL (3 mL) pen Inject 35 Units subcutaneously nightly. 3 mL 11 06/02/2024 07/21/2024 metFORMIN (Glucophage) 500 mg tablet Take 2 tablets by mouth 2 times daily. 120 tablet 06/02/2024 10/10/2024 methylphenidate (Ritalin) 20 mg tablet Take 20 [...] substance abuse, narcolepsy/cataplexy, who initially presented to [facility] ED with c/o 3d acute onset left calf pain. CTA revealed short segment popliteal occlusion with distal reconstitution. On arrival to [facility] he is hemodynamically normal on RA. He [...] up to date on transfer documentation from [facility]. Active Hospital Problems Diagnosis Critical [...] Imaging: ABIs Department: Vascular Surgery Lab Patient: [id number] (GEOVANNA DIXON) CPT: 62520 Referring Physician: JERRY MARIN Phone: Indications: PAD [...] Cards recs Preston Dee MD 06/01/2024 Pager: [phone] * Anabel Castelan MD - 06/01/2024 11:42 [...] nutritional counseling for which one of our mingle operator met with him on 05/31. Glargine has [...] with Dr. Reno. Anabel Castelan MD. PGY4 [facility] Endocrinology 20 minutes of this 35 minute visit was spent with the patient in counseling on diabetes and treatment plan, reviewing all glucose and insulin data as well as relevant laboratory results with the patient, and coordination of care on the inpatient unit including nursing and primary team. * Bindu Ritter RD - 05/31/2024 12:35 PM EDT Nutrition Brief Note Geovanna Dixon Jr. is a 49 y.o. male with PMH of CAD s/p 2V CABG (2012), DM, HTN, HLD, obesity, substance abuse, narcolepsy/cataplexy, who initially presented to [facility] ED with c/o 3d acute [...] an evening meal which is usually takeout (loader magazine grinder or pizza). Drinks up to 18 cans of Moun tain Dew/day or 1.5 gallons of milk daily. Bindu Ritter RD * Preston Dee MD - 05/31/2024 12:13 PM EDT Vascular Surgery Progress Note Geoavnna Dixon Jr. is a 49 y.o. male with PMH of CAD s/p 2V CABG (2012), DM, HTN, HLD, obesity, substance abuse, narcolepsy/cataplexy, who initially presented to [facility] ED with c/o 3d acute onset left calf pain. CTA revealed short segment popliteal occlusion with distal reconstitution. On arrival to [facility] he is hemodynamically normal on RA. He [...] up to date on transfer documentation from [facility]. Active Hospital Problems Diagnosis Critical [...] on heparin, but L medial calf still operator helper. No changes in level of pain since [...] CL 99 99 98 102 99 CO2 BUN 7* 7* 9* 11 9* CREATININE 0.55* 0.58* 0.56* 0.52* 0.53* PHOS 3.1 3.8 2.9 2.5 -- CALCIUM 9.0 9.1 8.7 9.0 9.2 Microbiology: Microbiology Results (Last 30 days) No results found for the last 720 hours. Imaging: ABIs Department: Vascular Surgery Lab Patient: [id number] (GEOVANNA DIXON) CPT: 37316 Referring Physician: JERRY MARIN Phone: Indications: PAD [...] Cards recs Preston Dee MD 05/31/2024 Pager: [phone] * Flip, Anabel Wilson MD - 05/31/2024 [...] islet cell antibodies Will place consult for reconciliation machine operator to further discuss nutritional modifications Patient case discussed with Dr. Reno. Anabel Castelan MD PGY4 [facility] Endocrinology 20 minutes of this 35 minute [...] substance abuse, narcolepsy/cataplexy, who initially presented to [facility] ED with c/o 3d acute onset left calf pain. CTA revealed short segment popliteal occlusion with distal reconstitution. On arrival to [facility] he is hemodynamically normal on RA. He [...] up to date on transfer documentation from [facility]. Active Hospital Problems Diagnosis Critical [...] on heparin, but L medial calf still operator helper - HDS, afebrile Objective: Temp: [36.3 ??C [...] Imaging: ABIs Department: Vascular Surgery Lab Patient: [id number] (GEOVANNA DIXON) CPT: 42518 Referring Physician: JERRY MARIN Phone: Indications: PAD [...] Cards recs Preston Dee MD 05/30/2024 Pager: [phone] * Vibha Benson, SKIVER MACHINE - 05/29/2024 11:48 AM EDT Vascular Surgery Progress Note Geovanna Dixon Jr. is a 49 y.o. male with PMH of CAD s/p 2V CABG (2012), DM, HTN, HLD, obesity, substance abuse, narcolepsy/cataplexy, who initially presented to [facility] ED with c/o 3d acute onset left calf pain. CTA revealed short segment popliteal occlusion with distal reconstitution. On arrival to [facility] he is hemodynamically normal on RA. He [...] up to date on transfer documentation from [facility]. Active Hospital Problems Diagnosis Critical [...] Microbiology: ABIs Department: Vascular Surgery Lab Patient: [id number] (GEOVANNA DIXON) CPT: 40237 Referring Physician: JERRY MARIN Phone: Indications: PAD [...] ASA Statin Vibha Benson APRN 05/29/2024 Pager: [phone] documented in this encounter H&P Notes * Lili Tapia MD - 05/28/2024 6:33 PM EDT [facility] Department of Vascular Surgery History & Physical Patient Name: Geovanna Dixon Jr. MR#: [id number] : 1975 Admission Date: 05/28/2024 Indication for Admission: LLE ALI History of Present Illness: Geovanna Dixon Jr. is a 49 y.o. male with PMH of CAD s/p 2V CABG (2012), DM, HTN, HLD, obesity, substance abuse, narcolepsy/cataplexy, who initially presented to [facility] ED with c/o 3d acute onset left calf pain. CTA revealed short segment popliteal occlusion with distal reconstitution. On arrival to [facility] he is hemodynamically normal on RA. He [...] up to date on transfer documentation from [facility]. Past Medical History: Past Medical [...] TOVAR at [facility] MAIN OR PRO ENDOSCOPY W/VIDEO-ASST VEIN HARVEST, CABG 01/04/2012 ENDOSCOPIC HARVEST VEIN(S) FOR CABG performed by INNA TOVAR at [facility] MAIN OR Home Medications: Current Outpatient [...] substance abuse, narcolepsy/cataplexy, who initially presented to [facility] ED with c/o 3d acute [...] MD 05/28/2024 Vascular Surgery Service Team pager #[phone] documented in this encounter ED Notes * [...] are significant for: ED Course as of 05/28/241900 Elel May 28, 2024 1819 Paged vascular surgery [phone] Vascular surgery recommending heparin drip [phone] paged [phone] Surgery to see 183 WBC: [...] my separate note. 49-year-old male transfer from [facility] for left foot ischemia with CT angiogram [...] Yes/No STROKE ALERT: Last Known Well Time: Warren Stroke Scale: + / - FAST-ED Score: TRAUMA ALERT: T9 Alert Consult Lowest Documented BP Transporting Service: Time of Departure: ETA: * María Ugalde MD - 05/28/2024 4:41 PM EDT . EM attending brief transfer acceptance note: Geovanna Viet Dixon Jr. is a 49 y.o. who [...] transfer were discussed María Ugalde MD 05/28/24 5020 documented in this encounter Miscellaneous Notes * [...] substance abuse, narcolepsy/cataplexy, who initially presented to [facility] ED with c/o 3d acute [...] therapeutic upon check with AM labs, continues [id number]/30ml/hr. Pt continues on Telemetry, noted NSR every [...] controlled with scheduled and PRN meds, medical record librarians teacher to be found in JAN. Q4 neurovascular [...] controlled with scheduled and PRN meds, medical record librarians teacher to be found in JAN. Patient went [...] substance abuse, narcolepsy/cataplexy, who initially presented to [facility] ED with c/o 3d acute [...] from the original note were not included[place] [address] CARDIOLOGY CONSULT NOTE Date of Consultation: 05/29/2024 [...] substance abuse, narcolepsy/cataplexy, who initially presented to [facility] ED with c/o 3d acute [...] NSTEMI in 2012, at the time showed MEDICAL ASSOCIATE of proximal LAD, MEDICAL ASSOCIATE proximal right, 90% LCX. MARTINEZ-LAD patent and [...] Oral Daily heparin (porcine) infusion 1,600 Units/hr (05/29/24940) lactated Ringers 1,000 mL (05/29/24940) Physical Exam: Last value Range last 8 [...] Surgical Unit Level 4 Wing D at [facility] Office Visit from 03/08/2012 in Cardiothoracic [...] HDL 24, triglycerides 733, LDL 107 in 2012 Relevant imaging: ECG (05/30/24): Sinus rhythm, inferior [...] substance abuse, narcolepsy/cataplexy, who initially presented to [facility] ED with c/o 3d acute [...] an occluded SVG-RPDA graft with a MEDICAL ASSOCIATE of his right coronary artery. He has [...] substance abuse, narcolepsy/cataplexy who initially presented to [facility] ED with complaints of 3 days of acute left calf pain. CTA revealed short segment popliteal occlusion with distal reconstitution. He was transferred to [facility] on 05/28/2024 for further management. We are being consulted to assist with diabetes management for poorly controlled DM and to provide a [place] of [place] [facility] [place] care. Diabetes History: Geovanna Dixon Jr. [...] sec Lactate, whole blood, send to lab ([facility]) Result Value Ref Range Lactate WB 1.6 0.5 - 2.2 mmol/L Type and screen ([facility]) Result Value Ref Range ABORH Type A [...] Value Ref Range T&S only valid at [facility] Hosp POCT Glucose Result Value Ref Range [...] with distal reconstitution on CTA. While at [facility] patient found to have blood glucose approx 490-500. He was transferred to [facility] on 05/28/2024 for further management. We are being consulted to assist with diabetes management for poorly controlled DM and to provide a [place] of [place] [facility] [place] care. Diabetes is not currently well [...] diabetes education as well as nutritional counseling [facility] diabetes care: Medications - Outpatient treatment regimen recommendations pending based on the hospital course. Monitoring - continue BG tid ac & hs Diet - low fat/low carb diet Exercise - weight-bearing exercise 30 min/day, as tolerated Provider - patient requires establishment with new PCP or theater manager for continued medication management Thank you for allowing us to provide care for your patient. Anabel Castelan MD [facility] Endocrinology Associated attestation - Karen Reno MD [...] surrogate would be surrogate decision maker per [place] surrogate decision making law. (Only good for 180 days) Any patient receiving care in [place] must abide by [place] law. The hierarchy for surrogate decision making [...] (i) The agent with financial power of district attorney or a conservator appointed in accordance [...] homeless or living in a penitentiary (including now)?: No In the past 12 months has the electric, gas, oil, or water [employer] threatened to shut off services in [...] DME: none Home Address confirmed as: [address] [place] [address] Social & Family Supports: All names listed [...] not?: Costs Prescription Coverage: Yes Preferred Pharmacy: [id number] - [place], [place] - [address] [facility] [address] [facility] [address] Status: Patient is a : No Primary Care Provider listed: Guanako Gusman MD (Inactive) [phone] Patient/Caregiver Goals of Treatment: How long will [...] care as indicated. DENISSE Astorga Care Management #[id number] * Plan of Care - Guanako Madison [...] Manage VTE (Venous Thromboembolism) Risk Flowsheets (Taken 05/29/2024 0355 by Maribel Lazo, RN) VTE Prevention/Management: anticoagulant therapy Goal: Optimal Comfort and Wellbeing Outcome: Ongoing (Interventions Implemented as Appropriate) Intervention: Provide Person-Centered Care Flowsheets (Taken 05/28/20240 by Maribel Lazo RN) Trust Relationship/Rapport: care explained emotional support provided questions answered reassurance provided thoughts/feelings acknowledged Goal: Readiness for Transition of Care Outcome: Ongoing (Interventions Implemented as Appropriate) Problem: Pain Acute Goal: Acceptable Pain Control and Functional Ability Outcome: Ongoing (Interventions Implemented as Appropriate) Intervention: Optimize Psychosocial Wellbeing Flowsheets (Taken 05/28/20240 by Maribel Lazo RN) Diversional Activities: smartphone [...] as Appropriate) * Consult Note - Allen Orona, [facility] - 05/29/2024 4:00 AM EDT TelePharmacy Home Medication List Update for Medication Reconciliation [...] 10/23/2024 1:00 PM EST Appointment XRay at [address] [place] [phone] Isabela Hayward APRN [facility] [place] [address] 11/09/2024 1:30 PM EST Office [place] [phone] Isabela Hayward SKIVER MACHINE [facility] [place] [address] 11/10/2024 10:00 AM EST Office [place] [phone] Dai Whitman APRN 11/21/2024 2:15 PM EST Office [place] [phone] Dayanara Grover MD [facility] [place] [address] documented as of this encounter Procedures Procedure [...] MD POINT OF CARE TEST O GILDA [facility] [place] [address] * (ABNORMAL) POCT Glucose (06/02/2024 1:47 PM EDT) Glucose, POC 306(H) 65 - 199 mg/dL [facility] Comment: Supplemental ranges: <140 mg/dL before meals <180 mg/dL all other times of the day Blood 06/02/2024 1:47 PM EDT 06/02/2024 1:47 PM EDT Jerry Marin MD POINT OF CARE TEST O GILDA Performing Organization Address City/[facility]/ZIP Co de Phone Number [facility] [place] [address] * (ABNORMAL) POCT Glucose (06/02/2024 11:28 AM EDT) Glucose, POC 270(H) 65 - 199 mg/dL [facility] Comment: Supplemental ranges: <140 mg/dL before meals <180 mg/dL all other times of the day Blood 06/02/2024 11:2 8 AM EDT 06/02/2024 11:28 AM EDT Jerry Marin MD POINT OF CARE TEST O GILDA Performing Organization Address [facility] Co de Phone Number [facility] [place] [address] * (ABNORMAL) POCT Glucose (06/02/2024 8:59 AM EDT) Glucose, POC 299(H) 65 - 199 mg/dL [facility] Comment: Supplemental ranges: <140 mg/dL before meals <180 mg/dL all other times of the day Blood 06/02/2024 8:59 AM EDT 06/02/2024 8:59 AM EDT Jerry Marin MD POINT OF CARE TEST O GILDA Performing Organization Address City/[facility]/ZIP Co de Phone Number [facility] [place] [address] * (ABNORMAL) Differential, Automated (06/02/2024 1:52 AM EDT) Neutrophil % 75.2 % [facility] [facility] Neutrophil Absolute 9.62(H) 1.70 - 6.10 x10(3)/[facility] LABORATORY Lymph % 12.7 % [facility] Lymphocytes Abs 1.6 0.9 - 3.2 x10(3)/[facility] LABORATORY Monocyte % 7.8 % [facility] Monocyte Abs 1.0(H) 0.3 - 0.9 x10(3)/[facility] LABORATORY Eos % 1.1 % [facility] Eosinophils Abs 0.1 0.0 - 0.4 x10(3)/[facility] LABORATORY Basophil % 0.9 % [facility] Baso Absolute 0.1 0.0 - 0.1 x10(3)/[facility] LABORATORY Immature Gran % 2.30 % [facility] Comment: Immature granulocytes(IG's)percentage and absolute count will include metamyelocytes, myelocytes, and promyelocytes. Blood smears from CBCs yielding IG's will be scanned manually for concordance. If this scan disagrees with the automated IG or if promyelocytes are noted, a manual differential will be performed. Immature Gran Absolute 0.29(H) 0.00 - 0.04 x10(3)/[facility] LABORATORY Blood 06/02/2024 1:52 AM EDT 06/02/2024 2:06 AM EDT Narrative Resulting Agency Comment Spec In Lab Lili Tapia MD HEMATOLOGY ORDERA BLES [facility] [place] [address] * (ABNORMAL) Hemogram (06/02/2024 1:52 AM EDT) White Blood Cell 12.8(H) 4.0 - 9.5 x10(3)/[facility] LABORATORY Red Blood Cell 4.56(L) 4.58 - [...] [facility] NRBC% auto 0.0 % [facility] NRBC Absolute 0.000 0.000 - 0.000 x10(3)/mc L [facility] Blood 06/02/2024 1:52 AM EDT 06/02/2024 2:06 AM EDT Narrative Resulting Agency Comment Spec In Lab Lili Tapia MD HEMATOLOGY ORDERA BLES [facility] [place] [address] * Heparin (unfractionated) Level (06/02/2024 1:52 AM EDT) UF Heparin 0.35 IU/mL [facility] Comment: Heparin (anti-Xa) [...] DO HEMATOLOGY ORDERABLE S Performing Organization Address City/[facility]/ZIP Co de Phone Number [facility] [place] [address] * Phosphorus (06/02/2024 1:52 AM EDT) Phosphorus 3.3 2.5 - 4.5 mg/dL [facility] Blood 06/02/2024 1:52 AM EDT 06/02/2024 2:06 AM EDT Narrative Resulting Agency Comment Spec In Lab Jerry Marin MD CHEMISTRY ORDERABLES Performing Organization Address [facility] Co de Phone Number [facility] [place] [address] * Magnesium (06/02/2024 1:52 AM EDT) Magnesium 0.81 0.69 - 1.07 mmol/L [facility] Blood 06/02/2024 1:52 AM EDT 06/02/2024 2:06 AM EDT Narrative Resulting Agency Comment Spec In Lab Jerry Marin MD CHEMISTRY ORDERABLES Performing Organization Address [facility] Co de Phone Number [facility] [place] [address] * (ABNORMAL) Basic Metabolic Panel (non-fasting) (06/02/2024 1:52 AM EDT) Glucose 165 65 - 199 mg/dL [facility] Comment:Diabetes: >=200 mg/d L plus symptoms Blood Urea Nitrogen 7(L) 10 - 20 mg/dL [facility] Creatinine 0.52(L) 0.80 - 1.50 mg/dL [facility] Sodium 137 135 - 145 mmol/L [facility] Potassium 4.0 3.5 - 5.0 mmol/L [facility] Comment: Please note: ??Patients with WBC >100,000 may have falsely elevated Potassium levels. ??For accurate Potassium quantification in these patients send serum separator tube (gold top) for subsequent determinations. ??Contact the Clinical Chemistry Laboratory if there are any questions. Chloride 102 98 - 107 mmol/L [facility] Carbon Dioxide 23 22 - 31 mmol/L [facility] Anion Gap 12 5 - 15 mmol/L [facility] Calcium 9.5 8.5 - 10.5 mg/dL [facility] Est Glomerular Filtration Rate 123 >=60 mL/min/1. 73 m?? [facility] Comment: This [...] In Lab Jerry Marin MD CHEMISTRY ORDERABLES [facility] [place] [address] * (ABNORMAL) POCT Glucose (06/01/2024 7:45 PM EDT) Glucose, POC 225(H) 65 - 199 mg/dL [facility] Comment: Supplemental ranges: <140 mg/dL before meals <180 mg/dL all other times of the day Blood 06/01/2024 7:45 PM EDT 06/01/2024 7:45 PM EDT Jerry Marin MD POINT OF CARE TEST O GILDA Performing Organization Address City/[facility]/ZIP Co de Phone Number [facility] [place] [address] * POCT Glucose (06/01/2024 4:45 PM EDT) Glucose, POC 178 65 - 199 mg/dL [facility] Comment: Supplemental ranges: <140 mg/dL before meals <180 mg/dL all other times of the day Blood 06/01/2024 4:45 PM EDT 06/01/2024 4:45 PM EDT Jerry Marin MD POINT OF CARE TEST O GILDA Performing Organization Address [facility] Co de Phone Number [facility] [place] [address] * POCT Glucose (06/01/2024 2:32 PM EDT) Glucose, POC 195 65 - 199 mg/dL [facility] Comment: Supplemental ranges: <140 mg/dL before meals <180 mg/dL all other times of the day Blood 06/01/2024 2:32 PM EDT 06/01/2024 2:32 PM EDT Jerry Marin MD POINT OF CARE TEST O GILDA Performing Organization Address City/[facility] Co de Phone Number [facility] [place] [address] * MRSA PCR Screen ([facility]/CGP/APD/NLH) (06/01/2024 1:42 PM EDT) MRSA PCR Negative Negative [facility] MRSA (Interp) Methicillin-resist ant Staphylococcus aureus (MRSA) is NOT DETECTED The MRSA target DNA sequences (mec and SCC) were not detected within the acceptable ranges using the Xpert MRSA NxG on the GeneXpert Dx System ([employer]). This suggests the absence of MRSA in the patient specimen submitted for testing. This test is cleared by the U.S. Food and Drug Administration for clinical use and its performance characteristics have been verified by the [facility] at [facility]. This result does not rule out the presence of any other organisms. Rare false negative results may occur if MRSA is present at low concentrations with much higher concentrations of other organisms including MRSE or S. aureus with an empty SCC cassette. [facility] Comment: [VERIFIED DATE]06.02.24 Verified By:Gloria Jonas (Electronic Signature) Nasopharyngeal Swab 06/01/20 1:42 PM EDT 06/01/2024 3:11 PM EDT Comment:Specimen Type->Nasop haryngeal Swab Narrative Resulting Agency Comment Spec In Lab Jerry Marin MD MOLECULAR ORDERABLES Performing Organization Address [facility]/[facility] Co de Phone Number [facility] [place] [address] * (ABNORMAL) POCT Glucose (06/01/2024 11:49 AM EDT) [facility] Glucose, POC 264(H) 65 - 199 mg/dL [facility] Comment: Supplemental ranges: <140 mg/dL before meals <180 mg/dL all other times of the day Blood 06/01/2024 11:4 9 AM EDT 06/01/2024 11:49 AM EDT Jerry Marin MD POINT OF CARE TEST O RDERABLES Performing Organization Address [facility]/[facility] Co de Phone Number [facility] [place] [address] * (ABNORMAL) POCT Glucose (06/01/2024 8:17 AM EDT) Glucose, POC 288(H) 65 - 199 mg/dL [facility] Comment: Supplemental ranges: <140 mg/dL before meals <180 mg/dL all other times of the day Blood 06/01/2024 8:17 AM EDT 06/01/2024 8:17 AM EDT Jerry Marin MD POINT OF CARE TEST O GILDA [facility] [place] [address] * (ABNORMAL) POCT Glucose (06/01/2024 8:13 AM EDT) Glucose, POC 358(H) 65 - 199 mg/dL [facility] Comment: Supplemental ranges: <140 mg/dL before meals <180 mg/dL all other times of the day Blood 06/01/2024 8:13 AM EDT 06/01/2024 8:13 AM EDT Jerry Marin MD POINT OF CARE TEST O GILDA Performing Organization Address [facility] Co de Phone Number [facility] [place] [address] * (ABNORMAL) POCT Glucose (06/01/2024 6:43 AM EDT) Glucose, POC 296(H) 65 - 199 mg/dL [facility] Comment: Supplemental ranges: <140 mg/dL before meals <180 mg/dL all other times of the day Blood 06/01/2024 6:43 AM EDT 06/01/2024 6:43 AM EDT Jerry Marin MD POINT OF CARE TEST Stephanie VO Performing Organization Address City/[facility]/ZIP Co de Phone Number [facility] [place] [address] * (ABNORMAL) Differential, Automated (06/01/2024 6:12 AM EDT) Neutrophil % 73.0 % [facility] Neutrophil Absolute 8.65(H) 1.70 - 6.10 x10(3)/[facility] LABORATORY Lymph % 15.2 % [facility] Lymphocytes Abs 1.8 0.9 - 3.2 x10(3)/[facility] LABORATORY Monocyte % 7.7 % [facility] Monocyte Abs 0.9 0.3 - 0.9 x10(3)/[facility] LABORAT[facility] Eos % 1.4 % [facility] Eosinophils Abs 0.2 0.0 - 0.4 x10(3)/[facility] LABORAT[facility] Basophil % 1.2 % [facility] Baso Absolute 0.1 0.0 - 0.1 x10(3)/[facility] LABORATORY Immature Gran % 1.50 % [facility] Comment: Immature granulocytes(IG's)percentage and absolute count will include metamyelocytes, myelocytes, and promyelocytes. Blood smears from CBCs yielding IG's will be scanned manually for concordance. If this scan disagrees with the automated IG or if promyelocytes are noted, a manual differential will be performed. Immature Gran Absolute 0.18(H) 0.00 - 0.04 x10(3)/[facility] LABORATORY Blood 06/01/2024 6:12 AM EDT 06/01/2024 6:43 AM EDT Narrative Resulting Agency Comment Spec In Lab Lili Tapia MD HEMATOLOGY ORDERA BLES [facility] [place] [address] * (ABNORMAL) Hemogram (06/01/2024 6:12 AM EDT) Pathologist [facility] White Blood Cell 11.8(H) 4.0 - 9.5 x10(3)/ L [facility] Red Blood Cell 4.66 4.58 - 5.54 x10(6)/mc L [facility] Hemoglobin 14.1 13.7 - 16.5 g/dL [facility] Hematocrit 39.6(L) 40.5 - 48.5 % [facility] Mean Cell Volume 85.0 82.9 - 93.1 fL [facility] Mean Cell Hemoglobin 30.3 27.5 - 32.1 pg [facility] Mean Cell Hemoglobin Concentration 35.6 32.0 - 35.7 g/dL [facility] Platelet 264 145 - 357 x10(3)/ L [facility] RDW Standard Deviation 35.0(L) 36.0 - 45.0 [facility] LABORATORY RDW coefficient of variation 11.4 11.4 - 13.8 % [facility] Mean Platelet Volume 10.8 7.6 - 12.9 [facility] LABORATORY NRBC% auto 0.0 % [facility] NRBC Absolute 0.000 0.000 - 0.000 x10(3)/ L [facility] Blood 06/01/2024 6:12 AM EDT 06/01/2024 6:43 AM EDT Narrative Resulting Agency Comment Spec In Lab Lili Tapia MD HEMATOLOGY ORDERA BLES Performing Organization Address City/State/[facility] Co de Phone Number [facility] [place] [address] * Phosphorus (06/01/2024 6:12 AM EDT) Phosphorus 3.2 2.5 - 4.5 mg/dL [facility] Blood 06/01/2024 6:12 AM EDT 06/01/2024 6:43 AM EDT Narrative Resulting Agency Comment Spec In Lab Jerry Marin MD CHEMISTRY ORDERABLES [facility] [place] [address] * Magnesium (06/01/2024 6:12 AM EDT) Magnesium 0.87 0.69 - 1.07 mmol/L [facility] Blood 06/01/2024 6:12 AM EDT 06/01/2024 6:43 AM EDT Narrative Resulting Agency Comment Spec In Lab Jerry Marin MD CHEMISTRY ORDERABLES Performing Organization Address [facility]/[facility] Co de Phone Number [facility] [place] [address] * (ABNORMAL) Basic Metabolic Panel (non-fasting) (06/01/2024 6:12 AM EDT) Glucose 300(H) 65 - 199 mg/dL [facility] Comment:Diabetes: >=200 mg/d L plus symptoms Blood Urea Nitrogen 7(L) 10 - 20 mg/dL [facility] Creatinine 0.54(L) 0.80 - 1.50 mg/dL [facility] Sodium 135 135 - 145 mmol/L [facility] Potassium 4.1 3.5 - 5.0 mmol/L [facility] Comment: Please note: ??Patients with WBC >100,000 may have falsely elevated Potassium levels. ??For accurate Potassium quantification in these patients send serum separator tube (gold top) for subsequent determinations. ??Contact the Clinical Chemistry Laboratory if there are any questions. Chloride 102 98 - 107 mmol/L [facility] Carbon Dioxide 22 22 - 31 mmol/L [facility] Anion Gap 11 5 - 15 mmol/L [facility] Calcium 9.2 8.5 - 10.5 mg/dL [facility] Est Glomerular Filtration Rate 121 >=60 mL/min/1. 73 m?? [facility] Comment: This [...] Marin MD CHEMISTRY ORDERABLES Performing Organization Address [facility]/[facility] Co de Phone Number [facility] [place] [address] * POCT Glucose (05/31/2024 11:26 PM EDT) Glucose, POC 168 65 - 199 mg/dL [facility] Comment: Supplemental ranges: <140 mg/dL before meals <180 mg/dL all other times of the day Blood 05/31/2024 11:2 6 PM EDT 05/31/2024 11:26 PM EDT Jerry Marin MD POINT OF CARE TEST O RDERABLES Performing Organization Address [facility] [place]/[facility] Co de Phone Number [facility] [place] [address] * (ABNORMAL) POCT Glucose (05/31/2024 8:28 PM EDT) Glucose, POC 248(H) 65 - 199 mg/dL [facility] Comment: Supplemental ranges: <140 mg/dL before meals <180 mg/dL all other times of the day Blood 05/31/2024 8:28 PM EDT 05/31/2024 8:28 PM EDT Jerry Marin MD POINT OF CARE TEST O DIMITRIERAHERNANDEZ Performing Organization Address [facility] [place]/[facility] Co de Phone Number [facility] [place] [address] * POCT Glucose (05/31/2024 4:31 PM EDT) Glucose, POC 187 65 - 199 mg/dL [facility] Comment: Supplemental ranges: <140 mg/dL before meals <180 mg/dL all other times of the day Blood 05/31/2024 4:31 PM EDT 05/31/2024 4:31 PM EDT Jerry Marin MD POINT OF CARE TEST O GILDA Performing Organization Address [facility] [place]/[facility] Co de Phone Number [facility] [place] [address] * (ABNORMAL) POCT Glucose (05/31/2024 12:43 PM EDT) Glucose, POC 200(H) 65 - 199 mg/dL [facility] Comment: Supplemental ranges: <140 mg/dL before meals <180 mg/dL all other times of the day Blood 05/31/2024 12:4 3 PM EDT 05/31/2024 12:43 PM EDT Jerry Marin MD POINT OF CARE TEST Stephanie VO Performing Organization Address [facility] [place]/[facility] Co de Phone Number [facility] [place] [address] * (ABNORMAL) POCT Glucose (05/31/2024 8:19 AM EDT) Glucose, POC 232(H) 65 - 199 mg/dL [facility] Comment: Supplemental ranges: <140 mg/dL before meals <180 mg/dL all other times of the day Blood 05/31/2024 8:19 AM EDT 05/31/2024 8:19 AM EDT Jerry Marin MD POINT OF CARE TEST O RDERABLES Performing Organization Address [facility] [place]/ZIP Co de Phone Number [facility] [place] [address] * Duplex for DVT, Leg, Unilat (05/31/2024 7:35 AM EDT) VB Text Report Department: Vascular Surgery Lab Patient: [id number] (GEOVANNA DIXON) CPT: [id number] Referring Physician: JERRY MARIN ?? Phone: Indications: [...] Marin MD VASCULAR ORDERABLES Performing Organization Address City/[facility]/ZIP Co de Phone Number [facility] * (ABNORMAL) POCT Glucose (05/31/2024 6:53 AM EDT) Glucose, POC 261(H) 65 - 199 mg/dL [facility] Comment: Supplemental ranges: <140 mg/dL before meals <180 mg/dL all other times of the day Blood 05/31/2024 6:53 AM EDT 05/31/2024 6:53 AM EDT Jerry Marin MD POINT OF CARE TEST O RDERABLES Performing Organization Address City/[facility]/ZIP Co de Phone Number [facility] [place] [address] * (ABNORMAL) Differential, Automated (05/31/2024 5:26 AM EDT) Neutrophil % 75.1 % [facility] Neutrophil Absolute 9.03(H) 1.70 - 6.10 x10(3)/mc L [facility] Lymph % 14.4 % [facility] Lymphocytes Abs 1.7 0.9 - 3.2 x10(3)/mc L [facility] Monocyte % 6.2 % [facility] Monocyte Abs 0.8 0.3 - 0.9 x10(3)/mc L [facility] Eos % 2.1 % [facility] Eosinophils Abs 0.2 0.0 - 0.4 x10(3)/ L [facility] Basophil % 1.0 % [facility] Baso Absolute 0.1 0.0 - 0.1 x10(3)/mc L [facility] Immature Gran % 1.20 % [facility] Comment: Immature granulocytes(IG's)percentage and absolute count will include metamyelocytes, myelocytes, and promyelocytes. Blood smears from CBCs yielding IG's will be scanned manually for concordance. If this scan disagrees with the automated IG or if promyelocytes are noted, a manual differential will be performed. Immature Gran Absolute 0.14(H) 0.00 - 0.04 x10(3)/mc L [facility] Blood 05/31/2024 5:26 AM EDT 05/31/2024 5:58 AM EDT Narrative Resulting Agency Comment Spec In Lab Lili Tapia MD HEMATOLOGY ORDERA BLES Performing Organization Address City/[facility]/ZIP Co de Phone Number [facility] [place] [address] * (ABNORMAL) Hemogram (05/31/2024 5:26 AM EDT) White Blood Cell 12.0(H) 4.0 - 9.5 x10(3)/[facility] LABORATORY Red Blood Cell 4.66 4.58 - 5.54 x10(6)/[facility] LABORAT[facility] Hemoglobin 13.6(L) 13.7 - 16.5 g/dL [facility] Hematocrit 39.1(L) 40.5 - 48.5 % [facility] Mean Cell Volume 83.9 82.9 - 93.1 fL [facility] Mean Cell Hemoglobin 29.2 27.5 - 32.1 pg [facility] Mean Cell Hemoglobin Concentration 34.8 32.0 - 35.7 g/dL [facility] Platelet 246 145 - 357 x10(3)/[facility] LABORATORY RDW Standard Deviation 35.0(L) 36.0 - 45.0 [facility] LABORATORY RDW coefficient of variation 11.5 11.4 - 13.8 % [facility] Mean Platelet Volume 11.9 7.6 - 12.9 [facility] LABORATORY NRBC% auto 0.0 % [facility] NRBC Absolute 0.000 0.000 - 0.000 x10(3)/[facility] LABORAT[facility] Blood 05/31/2024 5:26 AM EDT 05/31/2024 5:58 AM EDT Narrative Resulting Agency Comment Spec In Lab Lili Tapia MD HEMATOLOGY ORDERA BLES [facility] [place] [address] * Heparin (unfractionated) Level (05/31/2024 5:26 AM EDT) Pathologist [facility] UF Heparin 0.36 IU/mL [facility] Comment: Specimen drawn more [...] DO HEMATOLOGY ORDERABLE S Performing Organization Address City/[facility]/ZIP Co de Phone Number [facility] [place] [address] * Phosphorus (05/31/2024 5:26 AM EDT) Phosphorus 3.1 2.5 - 4.5 mg/dL [facility] Blood 05/31/2024 5:26 AM EDT 05/31/2024 5:58 AM EDT Narrative Resulting Agency Comment Spec In Lab Jerry Marin MD CHEMISTRY ORDERABLES [facility] [place] [address] * Magnesium (05/31/2024 5:26 AM EDT) Magnesium 0.83 0.69 - 1.07 mmol/L [facility] Blood 05/31/2024 5:26 AM EDT 05/31/2024 5:58 AM EDT Narrative Resulting Agency Comment Spec In Lab Jerry Marin MD CHEMISTRY ORDERABLES [facility] [place] [address] * (ABNORMAL) Basic Metabolic Panel (non-fasting) (05/31/2024 5:26 AM EDT) Glucose 273(H) 65 - 199 mg/dL [facility] Comment:Diabetes: >=200 mg/d L plus symptoms Blood Urea Nitrogen 7(L) 10 - 20 mg/dL [facility] Creatinine 0.55(L) 0.80 - 1.50 mg/dL [facility] Sodium 133(L) 135 - 145 mmol/L [facility] Potassium 3.9 3.5 - 5.0 mmol/L [facility] Comment: Please note: ??Patients with WBC >100,000 may have falsely elevated Potassium levels. ??For accurate Potassium quantification in these patients send serum separator tube (gold top) for subsequent determinations. ??Contact the Clinical Chemistry Laboratory if there are any questions. Chloride 99 98 - 107 mmol/L [facility] Carbon Dioxide 22 22 - 31 mmol/L [facility] Anion Gap 12 5 - 15 mmol/L [facility] Calcium 9.0 8.5 - 10.5 mg/dL [facility] Est Glomerular Filtration Rate 121 >=60 mL/min/1. 73 m?? [facility] Comment: This [...] Marin MD CHEMISTRY ORDERABLES Performing Organization Address [facility] de Phone Number [facility] [place] [address] * LDL Cholesterol, Direct (05/31/2024 5:26 AM EDT) LDL Cholesterol, Direct 86 mg/dL [facility] Comment: Desirable: ? <100 mg/dL Above Desirable: 100-129 mg/dL Borderline High: 130-159 mg/dL High: ?160-189 mg/dL Very High: ? >qj=038 mg/dL If not reaching LDL goals on [...] Marin MD CHEMISTRY ORDERABLES Performing Organization Address [facility] Co de Phone Number [facility] [place] [address] * HDL/Cholesterol Profile (05/31/2024 5:26 AM EDT) Cholesterol, Total 156 mg/dL [facility] Comment: Desirable: ? <200 mg/dL Borderline High: 200-239 mg/dL Higher: ?>sv=886 mg/dL HDL Cholesterol 33 mg/dL [facility] Comment: Females: High Risk: <50 mg/dL Males: High Risk: <40 mg/dL Lipid Interpretation See Note [facility] Comment: It is important to [...] ACC/AHA Guidelines (most recently Johann et al. [facility] 08/11/22): For individuals with atherosclerotic cardiovascular disease (ASCVD)or LDL >pr=180 mg/dL, use a high-intensity statin (40-80 mg [...] In Lab Jerry Marin MD CHEMISTRY ORDERABLES [facility] [place] [address] * (ABNORMAL) Rapid Drug Screen w/o Confirmation, Urine (05/31/2024 5:00 AM EDT) Pathologist [facility] Barbiturates Screen, Urine None Detected None Detected [...] marijuana metabolites screen detects the THC metabolite (89-luh-5-carboxy-delta 9-THC) at concentrations >20 ng/mL. A ? [...] characteristics of this test were determined by [facility] in accordance with CLIA requirements. This laboratory [...] characteristics of this test were determined by [facility] in accordance with CLIA requirements. This laboratory [...] Specimen Validity Test, Urine <2.0 <=49.9 mg/L [facility] Nitrite Specimen Validity Test, Urine <50 <=499 mg/L [facility] Oxidant Specimen Validity Test, Urine 10 <=199 mg/L [facility] pH Specimen Validity Test, Urine 6.8 3.0 - 10.9 [facility] Adulterants Screen, Urine None Detected None Detected [facility] Comment:No adulteration of t his urine sample was detected. Urine 05/31/2024 5:00 AM EDT 05/31/2024 5:31 AM EDT Narrative Resulting Agency Comment Spec In Lab Rubio Grimaldo MD CHEMISTRY ORDERABL ES [facility] [place] [address] * (ABNORMAL) Urinalysis without microscopic (05/31/2024 5:00 [...] LABORATORY Leukocytes, Urine Dipstick Negative Negative [facility] Appearance, Urine Dipstick Clear Clear [facility] Specific [place] Urine Automated >=1.030(A) 1.005 - 1.030 [facility] Color, Urine Dipstick Yellow Yellow [facility] Urine 05/31/2024 5:00 AM EDT 05/31/2024 5:31 AM EDT Narrative Resulting Agency Comment Spec In Lab Jerry Marin MD URINE ORDERABLES Performing Organization Address [facility] Co de Phone Number [facility] [place] [address] * Rapid Drug Screen, Urine (IVAN Request) (05/31/2024 5:00 AM EDT) IVAN Conf Requested No [facility] IVAN Requested See Comment [facility] Comment:Refer to Rapid Drug Screen w/o Confirmation, Urine for results. Urine 05/31/2024 5:00 AM EDT 05/31/2024 5:31 AM EDT Narrative Resulting Agency Comment Spec In Lab Jerry Marin MD URINE ORDERABLES Performing Organization Address [facility] de Phone Number [facility] [place] [address] * CT Lower Extremity w Contrast Left (05/30/2024 7:27 PM EDT) WORKSTATION ID [id number] RAD Anatomical Region Laterality Modality Hip, Leg, [...] please contact the health director of career services that requested your imaging first. ? Electronically signed by: Ignacia Chi MD, [facility] ([phone]), at 05/31/2024 3:33 PM Narrative 05/31/2024 3:33 [...] questions please contactthe health director of career services that requested your imaging first. Jerry Marin MD IMG CT ORDERABLES * POCT Glucose (05/30/2024 5:41 PM EDT) Glucose, POC 164 65 - 199 mg/dL [facility] Comment: Supplemental ranges: <140 mg/dL before meals <180 mg/dL all other times of the day Blood 05/30/2024 5:41 PM EDT 05/30/2024 5:41 PM EDT Jerry Marin MD POINT OF CARE TEST O RDERABLES Performing Organization Address [facility] de Phone Number [facility] [place] [id number] * Phosphorus (05/30/2024 4:47 PM EDT) Phosphorus 3.8 2.5 - 4.5 mg/dL [facility] Blood 05/30/2024 4:47 PM EDT 05/30/2024 4:58 PM EDT Narrative Resulting Agency Comment Spec In Lab Jerry Marin MD CHEMISTRY ORDERABLES Performing Organization Address [facility] Co de Phone Number [facility] [place] [address] * Magnesium (05/30/2024 4:47 PM EDT) Magnesium 0.86 0.69 - 1.07 mmol/L [facility] Blood 05/30/2024 4:47 PM EDT 05/30/2024 4:58 PM EDT Narrative Resulting Agency Comment Spec In Lab Jerry Marin MD CHEMISTRY ORDERABLES Performing Organization Address [facility]/ZIP Co de Phone Number [facility] [place] [address] * (ABNORMAL) Basic Metabolic Panel (non-fasting) (05/30/2024 4:47 PM EDT) Glucose 192 65 - 199 mg/dL [facility] Comment:Diabetes: >=200 mg/d L plus symptoms Blood Urea Nitrogen 7(L) 10 - 20 mg/dL [facility] Creatinine 0.58(L) 0.80 - 1.50 mg/dL [facility] Sodium 134(L) 135 - 145 mmol/L [facility] Potassium 3.9 3.5 - 5.0 mmol/L [facility] Comment: Please note: ??Patients with WBC >100,000 may have falsely elevated Potassium levels. ??For accurate Potassium quantification in these patients send serum separator tube (gold top) for subsequent determinations. ??Contact the Clinical Chemistry Laboratory if there are any questions. Chloride 99 98 - 107 mmol/L [facility] Carbon Dioxide 24 22 - 31 mmol/L [facility] Anion Gap 11 5 - 15 mmol/L [facility] Calcium 9.1 8.5 - 10.5 mg/dL [facility] Est Glomerular Filtration Rate 119 >=60 mL/min/1. 73 m?? [facility] Comment: This [...] Marin MD CHEMISTRY ORDERABLES Performing Organization Address [facility] Co de Phone Number [facility] [place] [address] * (ABNORMAL) POCT Glucose (05/30/2024 12:42 PM EDT) Glucose, POC 200(H) 65 - 199 mg/dL [facility] Comment: Supplemental ranges: <140 mg/dL before meals <180 mg/dL all other times of the day Blood 05/30/2024 12:4 2 PM EDT 05/30/2024 12:42 PM EDT Jerry Marin MD POINT OF CARE TEST O RDERABLES Performing Organization Address [facility] Co de Phone Number [facility] [place] [address] * NM Pharmacologic Stress CT Component (05/30/2024 11:20 AM EDT) Pathologist [facility] WORKSTATION ID [id number] RAD Anatomical Region Laterality Modality Nuclear Medicine [...] please contact the health director of career services that requested your imaging first. ? Electronically signed by: Angel Oliva MD, [facility] ([phone]), at 05/30/2024 2:34 PM Procedure Note Angel [...] questions please contactthe health director of career services that requested your imaging first. Electronically signed by: Angel Oliva MD, [facility]([phone]), at 05/30/2024 2:34 PM Jerry Marin MD G NM ORDERABLES * Nuclear Pharmacologic Stress Cardiology (05/30/2024 10:48 AM EDT) Anatomical Region Laterality Modality Other Jerry Marin MD CARDIAC SERVICES ORD ERABLES * NM Pharmacologic Stress and Rest Myocardial Perfusion (05/30/2024 10:40 AM EDT) WORKSTATION ID [id number] [facility] Anatomical Region Laterality Modality Nuclear Medicine Impressions [...] please contact the health director of career services that requested your imaging first. ? Electronically signed by: Angel Oliva MD, [facility] ([phone]), at 05/30/2024 2:33 PM Narrative 05/30/2024 2:33 [...] questions please contactthe health director of career services that requested your imaging first. Electronically signed by: Angel Oliva MD, [facility]([phone]), at 05/30/2024 2:33 PM Jerry Marin MD IMG NM ORDERABLES * (ABNORMAL) POCT Glucose (05/30/2024 7:49 AM EDT) Glucose, POC 216(H) 65 - 199 mg/dL [facility] Comment: Supplemental ranges: <140 mg/dL before meals <180 mg/dL all other times of the day Blood 05/30/2024 7:49 AM EDT 05/30/2024 7:49 AM EDT Jerry Marin MD POINT OF CARE TEST O RDERABLES Performing Organization Address City/[facility]/ZIP Co de Phone Number [facility] [place] [address] * (ABNORMAL) POCT Glucose (05/30/2024 6:39 AM EDT) Glucose, POC 238(H) 65 - 199 mg/dL [facility] Comment: Supplemental ranges: <140 mg/dL before meals <180 mg/dL all other times of the day Blood 05/30/2024 6:39 AM EDT 05/30/2024 6:39 AM EDT Jerry Marin MD POINT OF CARE TEST O RDERABLES Performing Organization Address City/[facility]/ZIP Co de Phone Number [facility] [place] [address] * (ABNORMAL) Differential, Automated (05/30/2024 12:39 AM EDT) Neutrophil % 68.3 % [facility] Neutrophil Absolute 6.33(H) 1.70 - 6.10 x10(3)/[facility] Lymph % 21.9 % [facility] Lymphocytes Abs 2.0 0.9 - 3.2 x10(3)/ L [facility] Monocyte % 6.1 % [facility] Monocyte Abs 0.6 0.3 - 0.9 x10(3)/ L [facility] Eos % 2.5 % [facility] Eosinophils Abs 0.2 0.0 - 0.4 x10(3)/[facility] Basophil % 0.8 % [facility] Baso Absolute 0.1 0.0 - 0.1 x10(3)/[facility] Immature Gran % 0.40 % [facility] Comment: Immature granulocytes(IG's)percentage and absolute count will include metamyelocytes, myelocytes, and promyelocytes. Blood smears from CBCs yielding IG's will be scanned manually for concordance. If this scan disagrees with the automated IG or if promyelocytes are noted, a manual differential will be performed. Immature Gran Absolute 0.04 0.00 - 0.04 x10(3)/[facility] Blood 05/30/2024 12:3 9 AM EDT 05/30/2024 12:54 AM EDT Narrative Resulting Agency Comment Spec In Lab Lili Tapia MD HEMATOLOGY ORDERA BLES [facility] [place] [address] * (ABNORMAL) Hemogram (05/30/2024 12:39 AM EDT) White Blood Cell 9.3 4.0 - 9.5 x10(3)/ L [facility] Red Blood Cell 4.51(L) 4.58 - 5.54 x10(6)/mc L [facility] Hemoglobin 13.3(L) 13.7 - 16.5 g/dL [facility] Hematocrit 38.3(L) 40.5 - 48.5 % [facility] Mean Cell Volume 84.9 82.9 - 93.1 fL [facility] Mean Cell Hemoglobin 29.5 27.5 - 32.1 pg [facility] Mean Cell Hemoglobin Concentration 34.7 32.0 - 35.7 g/dL [facility] Platelet 193 145 - 357 x10(3)/mc L [facility] RDW Standard Deviation 35.1(L) 36.0 - 45.0 [facility] RDW coefficient of variation 11.4 11.4 - 13.8 % [facility] Mean Platelet Volume 11.4 7.6 - 12.9 [facility] NRBC% auto 0.0 % [facility] NRBC Absolute 0.000 0.000 - 0.000 x10(3)/mc L [facility] Blood 05/30/2024 12:3 9 AM EDT 05/30/2024 12:54 AM EDT Narrative Resulting Agency Comment Spec In Lab Lili Tapia MD HEMATOLOGY ORDERA BLES Performing Organization Address [facility] Co de Phone Number [facility] [place] [address] * Phosphorus (05/30/2024 12:39 AM EDT) Phosphorus 2.9 2.5 - 4.5 mg/dL [facility] Blood 05/30/2024 12:3 9 AM EDT 05/30/2024 12:54 AM EDT Narrative Resulting Agency Comment Spec In Lab Jerry Marin MD CHEMISTRY ORDERABLES Performing Organization Address City/[facility]/ZIP Co de Phone Number [facility] [place] [address] * Magnesium (05/30/2024 12:39 AM EDT) Magnesium 0.82 0.69 - 1.07 mmol/L [facility] Blood 05/30/2024 12:3 9 AM EDT 05/30/2024 12:54 AM EDT Narrative Resulting Agency Comment Spec In Lab Jerry Marin MD CHEMISTRY ORDERABLES Performing Organization Address City/[facility] Co de Phone Number [facility] [place] [address] * (ABNORMAL) Basic Metabolic Panel (non-fasting) (05/30/2024 12:39 AM EDT) Glucose 383(H) 65 - 199 mg/dL [facility] Comment:Diabetes: >=200 mg/d L plus symptoms Blood Urea Nitrogen 9(L) 10 - 20 mg/dL [facility] Creatinine 0.56(L) 0.80 - 1.50 mg/dL [facility] Sodium 132(L) 135 - 145 mmol/L [facility] Potassium 4.2 3.5 - 5.0 mmol/L [facility] Comment: Please note: ??Patients with WBC >100,000 may have falsely elevated Potassium levels. ??For accurate Potassium quantification in these patients send serum separator tube (gold top) for subsequent determinations. ??Contact the Clinical Chemistry Laboratory if there are any questions. Chloride 98 98 - 107 mmol/L [facility] Carbon Dioxide 22 22 - 31 mmol/L [facility] Anion Gap 12 5 - 15 mmol/L [facility] Calcium 8.7 8.5 - 10.5 mg/dL [facility] Est Glomerular Filtration Rate 120 >=60 mL/min/1. 73 m?? [facility] Comment: This patient's estimated GFR was calculated using the 2021 CKD-EPI equation. The estimated GFR can vary [...] Marin MD CHEMISTRY ORDERABLES Performing Organization Address [facility]/ZIP Co de Phone Number [facility] [place] [address] * Heparin (unfractionated) Level (05/30/2024 12:39 AM EDT) UF Heparin 0.51 IU/mL [facility] Comment: Heparin (anti-Xa) [...] DO HEMATOLOGY ORDERABLE S Performing Organization Address [facility]/ZIP Co de Phone Number [facility] [place] [address] * Lower extremity vein map, bilat (05/29/2024 8:01 PM EDT) VB Text Report Department: Vascular Surgery Lab Patient: [id number] (GEOVANNA DIXON) CPT: [id number] Referring Physician: JERRY MARIN ?? Phone: Indications: [...] Text Report Department: Vascular Surgery Lab Patient: [id number] (GEOVANNA DIXON) CPT: [id number] Referring Physician: JERRY MARIN ?? Phone: Indications: [...] 2 Antibody (05/29/2024 7:55 PM EDT) Pathologist [facility] Ia-2 Ab (MARCH) 0.00 <=0.02 nmol/L [facility] Comment: ADDITIONAL INFORMATION This test was developed and its performance characteristics determined by [facility] in a manner consistent with CLIA requirements. This test has not been cleared or approved by the U.S. Food and Drug Administration. Test Performed by: [facility] - [address] [address] Claims Examiner: Vraun Steen Ph.D.; CLIA# [id number] Blood 05/29/2024 7:55 PM EDT 05/30/2024 8:43 AM EDT Narrative Resulting Agency Comment Spec In Lab Jerry Marin MD CHEMISTRY ORDERABLES Performing Organization Address City/[facility] Co de Phone Number [facility] [place] [address] * TSH (05/29/2024 7:55 PM EDT) [facility] Thyroid Stimulating Hormone 1.03 0.27 - 4.20 mcIU/mL [facility] Comment: Reference Interval (mcIU/mL): Females: ??First Trimester: 0.23-3.88 ??Second Trimester: 0.22-3.90 ??Third Trimester: 0.44-4.66 Blood 05/29/2024 7:55 PM EDT 05/29/2024 8:00 PM EDT Narrative Resulting Agency Comment Spec In Lab Jerry Marin MD CHEMISTRY ORDERABLES Performing Organization Address [facility] Co de Phone Number [facility] [place] [address] * GAD65 Antibody Assay (05/29/2024 7:55 PM EDT) [facility] Gad65 Ab (MARCH) 0.00 <=0.02 nmol/L [facility] Comment: ADDITIONAL INFORMATION This test was developed and its performance characteristics determined by [facility] in a manner consistent with CLIA requirements. This test has not been cleared or approved by the U.S. Food and Drug Administration. Test Performed by: [facility] [place] [address] Claims Examiner: Varun Steen Ph.D.; CLIA# [id number] Blood 05/29/2024 7:55 PM EDT 05/30/2024 8:43 AM EDT Narrative Resulting Agency Comment Spec In Lab Jrery Marin MD LAB SEND OUT ORDERAB LES Performing Organization Address City/State/[facility] Co de Phone Number [facility] [place] [address] * Heparin (unfractionated) Level (05/29/2024 5:35 PM EDT) UF Heparin 0.50 IU/mL [facility] Comment: Heparin (anti-Xa) [...] DO HEMATOLOGY ORDERABLE S Performing Organization Address City/State/[facility] Co de Phone Number [facility] [place] [address] * (ABNORMAL) POCT Glucose (05/29/2024 4:12 PM EDT) Glucose, POC 235(H) 65 - 199 mg/dL [facility] Comment: Supplemental ranges: <140 mg/dL before meals <180 mg/dL all other times of the day Blood 05/29/2024 4:12 PM EDT 05/29/2024 4:12 PM EDT Jerry Marin MD POINT OF CARE TEST O RDERABLES Performing Organization Address [facility] Co de Phone Number [facility] [place] [address] * EKG 12 Lead (05/29/2024 2:51 PM EDT) Ventricular rate 85 BPM MUSE SYSTEM Atrial Rate 85 BPM MUSE SYSTEM P-R Interval 156 ms MUSE SYSTEM QRS Duration 114 ms MUSE SYSTEM Q-T Interval 384 ms MUSE SYSTEM QTC Calculated (Bezet) 456 ms MUSE SYSTEM Calculated P [place] 16 degrees MUSE SYSTEM Calculated R [place] 21 degrees MUSE SYSTEM Calculated T [place] 15 degrees MUSE SYSTEM INTERPRETATION Normal sinus rhythm Normal ECG When compared with ECG of 28-MAY-2024 19:54, Premature ventricular complexes are no longer Present Confirmed by MD Dian, Asad ([id number]) on 05/30/2024 1:27:54 PM MUSE SYSTEM 05/29/2024 2:51 PM EDT 05/30/2024 1:27 PM EDT Vibha Benson APRN ECG ORDERABLES Performing Organization Address [facility] Co de Phone Number MUSE SYSTEM * ECHO COMPLETE W CONTRAST (05/29/2024 1:29 PM EDT) Anatomical Region Laterality Modality Cardiac Other 05/29/2024 10:3 3 AM EDT Narrative 05/29/2024 2:27 PM EDT [address] [place] [address] ? Echocardiogram Report Name: GEOVANNA DIXON JR. ? Study Date: 05/29/2024 10:33 AM ? Patient Location: [facility] A : 1975 ? Height: 178 cm ? Account: [id number] Age: 49 yrs ? Weight: 102 kg Gender: Male ?BSA: 2.2 m2 Ordering Physician: JERRY MARIN Referring Physician: KAM SKINNER Performed By: Melina Marinelli RDCS Reason For Study: Limb ischemia Exam Location: [facility]. Interpretation Summary -Left ventricular systolic function is mildly reduced. The left ventricular ejection fraction is 47% by Stacy's biplane. There is akinesis of the inferior wall. -The right ventricle is of normal size. Right ventricular systolic function is normal. -No significant valvular disease noted on this study. -Compared with the previous echo performed on 08/21/23, the ejection fraction has decreased. Procedure Complete-[id number]. An agitated saline bubble contrast study was [...] ?large Aneurysmal ?15-16 ?? diffuse Procedure Note Daendre Jones MD - 05/29/2024 [address] [place] [address] Echocardiogram Report Name: GEOVANNA DIXON JR. Study Date: 410:33 AM Patient Location: [id number] A : 1975 Height: 178 cm Account: [id number] Age: 49 yrs Weight: 102 kg Gender: Male BSA: 2.2 m2 Ordering Physician: JERRY MARIN Referring Physician: KAM SKINNER Performed By: Melina Marinelli RDCS Reason For Study: Limb ischemia Exam Location: [facility]. Interpretation Summary -Left ventricular systolic function is mildly reduced. The leftventricular ejection fraction is 47% by Stacy's biplane. There is akinesis of theinferior wall. -The right ventricle is of normal size. Right ventricular systolicfunction is normal. -No significant valvular disease noted on this study. -Compared with the previous echo performed on 08/21/23, the ejectionfraction has decreased. Procedure Complete-[id number]. An agitated saline bubble contrast study was [...] 3-5moderate 5 - 6-14large Aneurysmal 15-16diffuse Jerry A Columbo MD ECHO ORDERABLES * (ABNORMAL) POCT Glucose (05/29/2024 1:23 PM EDT) [facility] Glucose, POC 249(H) 65 - 199 mg/dL [facility] Comment: Supplemental ranges: <140 mg/dL before meals <180 mg/dL all other times of the day Blood 05/29/2024 1:23 PM EDT 05/29/2024 1:23 PM EDT Jerry Marin MD POINT OF CARE TEST O RDERABLES Performing Organization Address [facility]/ZIP Co de Phone Number [facility] [place] [address] * Heparin (unfractionated) Level (05/29/2024 9:52 AM EDT) [facility] UF Heparin 0.76 IU/mL [facility] Comment: Heparin (anti-Xa) [...] Lab Arthur Patel DO HEMATOLOGY ORDERABLE S [facility] [place] [address] * POCT Glucose (05/29/2024 8:48 AM EDT) Glucose, POC 157 65 - 199 mg/dL [facility] Comment: Supplemental ranges: <140 mg/dL before meals <180 mg/dL all other times of the day Blood 05/29/2024 8:48 AM EDT 05/29/2024 8:48 AM EDT Jerry Marin MD POINT OF CARE TEST Stephanie VO Performing Organization Address City/[facility]/ZIP Co de Phone Number [facility] [place] [address] * (ABNORMAL) POCT Glucose (05/29/2024 4:00 AM EDT) Glucose, POC 218(H) 65 - 199 mg/dL [facility] Comment: Supplemental ranges: <140 mg/dL before meals <180 mg/dL all other times of the day Blood 05/29/2024 4:00 AM EDT 05/29/2024 4:00 AM EDT Jerry Marin MD POINT OF CARE TEST O GILDA Performing Organization Address [facility] Co de Phone Number [facility] [place] [address] * (ABNORMAL) POCT Glucose (05/29/2024 2:47 AM EDT) Glucose, POC 214(H) 65 - 199 mg/dL [facility] Comment: Supplemental ranges: <140 mg/dL before meals <180 mg/dL all other times of the day Blood 05/29/2024 2:47 AM EDT 05/29/2024 2:47 AM EDT Jerry Marin MD POINT OF CARE TEST O GILDA Performing Organization Address City/[facility]/ZIP Co de Phone Number [facility] [place] [address] * (ABNORMAL) Hemoglobin A1c (05/29/2024 2:13 AM EDT) [facility] Hemoglobin A1c 12.6(H) 4.3 - 5.6 % [...] Mellitus, Diabetes Care 2013; 36: Suppl. 1, Q49-37 Estimated Average Glucose 316 mg/dL [facility] Blood 05/29/2024 2:13 AM EDT 05/29/2024 8:03 AM EDT Narrative Resulting Agency Comment Spec In Lab Jerry Marin MD CHEMISTRY ORDERABLES [facility] [place] [address] * (ABNORMAL) Differential, Automated (05/29/2024 2:13 AM EDT) [facility] Neutrophil % 54.8 % [facility] Neutrophil Absolute 5.63 1.70 - 6.10 x10(3)/mc L [facility] Lymph % 34.0 % [facility] Lymphocytes Abs 3.5(H) 0.9 - 3.2 x10(3)/mc L [facility] Monocyte % 6.7 % [facility] Monocyte Abs 0.7 0.3 - 0.9 x10(3)/mc L [facility] Eos % 3.3 % [facility] Eosinophils Abs 0.3 0.0 - 0.4 x10(3)/mc L [facility] Basophil % 0.9 % [facility] Baso Absolute 0.1 0.0 - 0.1 x10(3)/mc L [facility] Immature Gran % 0.30 % [facility] Comment: Immature granulocytes(IG's)percentage and absolute count will include metamyelocytes, myelocytes, and promyelocytes. Blood smears from CBCs yielding IG's will be scanned manually for concordance. If this scan disagrees with the automated IG or if promyelocytes are noted, a manual differential will be performed. Immature Gran Absolute 0.03 0.00 - 0.04 x10(3)/mc L [facility] Blood 05/29/2024 2:13 AM EDT 05/29/2024 2:27 AM EDT Narrative Resulting Agency Comment Spec In Lab Lili Tapia MD HEMATOLOGY ORDERA BLES [facility] [place] [address] * (ABNORMAL) Hemogram (05/29/2024 2:13 AM EDT) White Blood Cell 10.3(H) 4.0 - 9.5 x10(3)/mc L [facility] Red Blood Cell 4.74 4.58 - 5.54 x10(6)/mc L [facility] Hemoglobin 14.2 13.7 - 16.5 g/dL [facility] Hematocrit 40.4(L) 40.5 - 48.5 % [facility] Mean Cell Volume 85.2 82.9 - 93.1 fL [facility] Mean Cell Hemoglobin 30.0 27.5 - 32.1 pg [facility] Mean Cell Hemoglobin Concentration 35.1 32.0 - 35.7 g/dL [facility] Platelet 158 145 - 357 x10(3)/mc L [facility] RDW Standard Deviation 35.4(L) 36.0 - 45.0 [facility] RDW coefficient of variation 11.4 11.4 - 13.8 % [facility] Mean Platelet Volume 10.6 7.6 - 12.9 [facility] NRBC% auto 0.0 % [facility] NRBC Absolute 0.000 0.000 - 0.000 x10(3)/mc L [facility] Blood 05/29/2024 2:13 AM EDT 05/29/2024 2:27 AM EDT Narrative Resulting Agency Comment Spec In Lab Lili Tapia MD HEMATOLOGY ORDERA BLES Performing Organization Address City/[facility]/ZIP Co de Phone Number [facility] [place] [address] * (ABNORMAL) Heparin (unfractionated) Level (05/29/2024 2:13 AM EDT) Pathologist [facility] UF Heparin 1.19(Crit ical) IU/mL [facility] Comment: Critical Result called by [...] DO HEMATOLOGY ORDERABLE S Performing Organization Address City/[facility]/ZIP Co de Phone Number [facility] [place] [address] * Phosphorus (05/29/2024 2:13 AM EDT) Phosphorus 2.5 2.5 - 4.5 mg/dL [facility] Blood 05/29/2024 2:13 AM EDT 05/29/2024 2:27 AM EDT Narrative Resulting Agency Comment Spec In Lab Jerry Marin MD CHEMISTRY ORDERABLES Performing Organization Address [facility] [place]/[facility] Co de Phone Number [facility] [place] [address] * Magnesium (05/29/2024 2:13 AM EDT) [facility] Magnesium 0.77 0.69 - 1.07 mmol/L [facility] Blood 05/29/2024 2:13 AM EDT 05/29/2024 2:27 AM EDT Narrative Resulting Agency Comment Spec In Lab Jerry Marin MD CHEMISTRY ORDERABLES Performing Organization Address [facility] [place]/[facility] Co de Phone Number [facility] [place] [address] * (ABNORMAL) Basic Metabolic Panel (non-fasting) (05/29/2024 2:13 AM EDT) [facility] Glucose 251(H) 65 - 199 mg/dL [facility] Comment:Diabetes: >=200 mg/d L plus symptoms Blood Urea Nitrogen 11 10 - 20 mg/dL [facility] Creatinine 0.52(L) 0.80 - 1.50 mg/dL [facility] Sodium 138 135 - 145 mmol/L [facility] Potassium 3.3(L) 3.5 - 5.0 mmol/L [facility] Comment: Please note: ??Patients with WBC >100,000 may have falsely elevated Potassium levels. ??For accurate Potassium quantification in these patients send serum separator tube (gold top) for subsequent determinations. ??Contact the Clinical Chemistry Laboratory if there are any questions. Chloride 102 98 - 107 mmol/L [facility] Carbon Dioxide 25 22 - 31 mmol/L [facility] Anion Gap 11 5 - 15 mmol/L [facility] Calcium 9.0 8.5 - 10.5 mg/dL [facility] Est Glomerular Filtration Rate 123 >=60 mL/min/1. 73 m?? [facility] Comment: This [...] Marin MD CHEMISTRY ORDERABLES Performing Organization Address [facility] [place]/[facility] Co de Phone Number [facility] [place] [address] * (ABNORMAL) POCT Glucose (05/29/2024 12:25 AM EDT) Pathologist [facility] Glucose, POC 253(H) 65 - 199 mg/dL [facility] Comment: Supplemental ranges: <140 mg/dL before meals <180 mg/dL all other times of the day Blood 05/29/2024 12:2 5 AM EDT 05/29/2024 12:25 AM EDT Jerry Marin MD POINT OF CARE TEST O RDERABLES Performing Organization Address [facility] [place]/[facility] Co de Phone Number [facility] [place] [address] * EKG 12 Lead (05/28/2024 7:54 PM EDT) Ventricular rate 78 BPM MUSE SYSTEM Atrial Rate 78 BPM MUSE SYSTEM P-R Interval 156 ms MUSE SYSTEM QRS Duration 110 ms MUSE SYSTEM Q-T Interval 408 ms MUSE SYSTEM QTC Calculated (Bezet) 465 ms MUSE SYSTEM Calculated R [place] 6 degrees MUSE SYSTEM Calculated T [place] 8 degrees MUSE SYSTEM INTERPRETATION Sinus rhythm Occasional Premature ventricular complexes Cannot rule out Anterior infarct , age undetermined Abnormal ECG When compared with ECG of 22-AUG-2013 07:45, Premature ventricular complexes are now Present Confirmed by MD Olivarez Jose ([id number]) on 05/29/2024 5:47:25 AM MUSE SYSTEM 05/28/2024 7:54 PM EDT 05/29/2024 5:47 AM EDT Arthur Patel DO ECG ORDERABLES MUSE SYSTEM * Type and Screen Validity (05/28/2024 6:20 PM EDT) T&S only valid at [facility] Comment:This Type and Screen result is only valid at the [facility] Blood 05/28/2024 6:20 PM EDT 05/28/2024 6:24 PM EDT Narrative Resulting Agency Comment Spec In Lab María Ugalde MD BLOOD BANK LAB ORDER RANDELL Performing Organization Address [facility] [place]/[facility] Co de Phone Number [facility] [place] [address] * ABORH Recheck Status (05/28/2024 6:20 PM EDT) ABOR[facility] Type Recheck Completed [facility] Blood 05/28/2024 6:20 PM EDT 05/28/2024 6:24 PM EDT Narrative Resulting Agency Comment Spec In Lab María Ugalde MD BLOOD BANK LAB ORDER RANDELL Performing Organization Address City/[facility]/ZIP Co de Phone Number [facility] [place] [address] * Gold Tube HOLD (05/28/2024 6:20 PM EDT) Pathologist [facility] Gold Hold Sample in lab. [facility] Blood Venous Draw / Unknown 05/28/2024 6:20 PM EDT 05/28/2024 6:25 PM EDT Juan Santana MD CHEMISTRY ORDERABLES [facility] [place] [address] * Differential, Automated (05/28/2024 6:20 PM EDT) [facility] Neutrophil % 56.3 % [facility] Neutrophil Absolute 3.94 1.70 - 6.10 x10(3)/[facility] Lymph % 32.7 % [facility] Lymphocytes Abs 2.3 0.9 - 3.2 x10(3)/[facility] Monocyte % 6.7 % [facility] Monocyte Abs 0.5 0.3 - 0.9 x10(3)/[facility] Eos % 3.0 % [facility] Eosinophils Abs 0.2 0.0 - 0.4 x10(3)/[facility] Basophil % 1.0 % [facility] Baso Absolute 0.1 0.0 - 0.1 x10(3)/[facility] Immature Gran % 0.30 % [facility] Comment: Immature granulocytes(IG's)percentage and absolute count will include metamyelocytes, myelocytes, and promyelocytes. Blood smears from CBCs yielding IG's will be scanned manually for concordance. If this scan disagrees with the automated IG or if promyelocytes are noted, a manual differential will be performed. Immature Gran Absolute 0.02 0.00 - 0.04 x10(3)/[facility] Blood 05/28/2024 6:20 PM EDT 05/28/2024 6:24 PM EDT Narrative Resulting Agency Comment Spec In Lab Juan Santana MD HEMATOLOGY ORDERABLE S [facility] [place] [address] * (ABNORMAL) Hemogram (05/28/2024 6:20 PM EDT) White Blood Cell 7.0 4.0 - 9.5 x10(3)/mc L [facility] Red Blood Cell 4.67 4.58 - 5.54 x10(6)/mc L [facility] Hemoglobin 14.1 13.7 - 16.5 g/dL [facility] Hematocrit 39.7(L) 40.5 - 48.5 % [facility] Mean Cell Volume 85.0 82.9 - 93.1 fL [facility] Mean Cell Hemoglobin 30.2 27.5 - 32.1 pg [facility] Mean Cell Hemoglobin Concentration 35.5 32.0 - 35.7 g/dL [facility] Platelet 162 145 - 357 x10(3)/mc L [facility] RDW Standard Deviation 35.3(L) 36.0 - 45.0 fL [facility] RDW coefficient of variation 11.5 11.4 - 13.8 % [facility] Mean Platelet Volume 10.8 7.6 - 12.9 fL [facility] NRBC% auto 0.0 % [facility] NRBC Absolute 0.000 0.000 - 0.000 x10(3)/mc L [facility] Blood 05/28/2024 6:20 PM EDT 05/28/2024 6:24 PM EDT Narrative Resulting Agency Comment Spec In Lab Juan Santana MD HEMATOLOGY ORDERABLE S [facility] [place] [address] * Type and screen ([facility]/BABITA) (05/28/2024 6:20 PM EDT) ABORH Type A POSITIVE [facility] Patient BB History Found [facility] Expires at [id number] on: 05-31-2024 [facility] Ab Screen Interp Negative [facility] Blood 05/28/2024 6:20 PM EDT 05/28/2024 6:20 PM EDT Narrative [facility] - 05/28/2024 6:20 PM EDT This Type and Screen result is only valid at the [facility] Resulting Agency Comment Spec In Lab María Ugalde MD BLOOD BANK LAB ORDER RANDELL [facility] [place] [address] * Lactate, whole blood, send to lab ([facility]) (05/28/2024 6:20 PM EDT) Lactate WB 1.6 0.5 - 2.2 mmol/L [facility] Blood 05/28/2024 6:20 PM EDT 05/28/2024 6:23 PM EDT Narrative Resulting Agency Comment Spec In Lab Arthur Patel DO CHEMISTRY ORDERABLES [facility] [place] [address] * APTT (05/28/2024 6:20 PM EDT) Partial [...] DO HEMATOLOGY ORDERABLE S Performing Organization Address [facility] [place]/[facility]/ZIP Co de Phone Number [facility] [place] [address] * Prothrombin Time (05/28/2024 6:20 PM EDT) [...] DO HEMATOLOGY ORDERABLE S Performing Organization Address [facility] [place]/[facility] Co de Phone Number [facility] [place] [address] * (ABNORMAL) Basic Metabolic Panel (non-fasting) (05/28/2024 6:20 PM EDT) Glucose 286(H) 65 - 199 mg/dL [facility] Comment:Diabetes: >=200 mg/d L plus symptoms Blood Urea Nitrogen 9(L) 10 - 20 mg/dL [facility] Creatinine 0.53(L) 0.80 - 1.50 mg/dL [facility] Sodium 135 135 - 145 mmol/L [facility] Potassium 3.9 3.5 - 5.0 mmol/L [facility] Comment: Please note: ??Patients with WBC >100,000 may have falsely elevated Potassium levels. ??For accurate Potassium quantification in these patients send serum separator tube (gold top) for subsequent determinations. ??Contact the Clinical Chemistry Laboratory if there are any questions. Chloride 99 98 - 107 mmol/L [facility] Carbon Dioxide 25 22 - 31 mmol/L [facility] Anion Gap 11 5 - 15 mmol/L [facility] Calcium 9.2 8.5 - 10.5 mg/dL [facility] Est Glomerular Filtration Rate 122 >=60 mL/min/1. 73 m?? [facility] Comment: This [...] CHEMISTRY ORDERABLES [facility] [place] [address] * (ABNORMAL) POCT Glucose (05/28/2024 5:46 PM EDT) Glucose, POC 262(H) 65 - 199 mg/dL [facility] Comment: Supplemental ranges: <140 mg/dL before meals <180 mg/dL all other times of the day Blood 05/28/2024 5:46 PM EDT 05/28/2024 5:46 PM EDT Emergency Dept POINT OF CARE TEST ORDERABLES [facility] [place] [address] documented in this encounter Visit Diagnoses Diagnosis [...] Oral, DAILY, First dose on 05/28/24 at 2002, Until Discontinued, Routine Given 06/02/2024 8:39 AM [...] Anuj Liu RN)2331 (Given - Provider: Maribel aLzo RN) 0448 (Given - Provider: Maribel Lazo [...] on 05/29/24 at 1700, Until Discontinued, Routine 1604 (Given [...] LPN)2019 (New Bag - Provider: Lizett Simmons RN)2048 (Stopped - Provider: Lizett Simmons RN) 0436 [...] than 240 mg/dL in 2 hours., Routine 07 (Given - Provider: Anuj Liu RN - [...] Provider: Venus Issa RN - Comment: Bg 288)115 (Given - Provider: Anuj Liu RN - Comment: BG 264)164 (Given - Provider: Anuj Liu RN - Comment: BG 178)2022 (Given - Provider: Lizett Simmons RN) 0730 (Not Given - Provider: Anuj Liu RN - Reason: See comment - Comment: 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 , Routine 0818 (Given - Provider: Anuj Liu RN)2032 (Given [...] (New Bag - Provider: Anuj Liu RN) 0689 (New Bag - Provider: Maribel Lazo RN)4964 (New Bag - Provider: Lizett Simmons RN) [...] dilaudid., Routine 0818 (Given - Provider: Venus Issa, DAVID) insulin lispro (HumaLOG;Admelog) (100 unit/mL) subcutaneous [...] Intravenous, ONCE PRN, 1 dose, Starting on Tu05/30/24 at 1627, Until Wed06/02/24 at 2044, Opioid [...] Lazo RN)1508 (Given - Provider: Anuj Liu, DAVID)2033 (Given - Provider: Maribel Lazo RN) 0045 (Given - Provider: Maribel Lazo RN)0448 (Given - Provider: Maribel Lazo RN)1245 (Given - Provider: Anuj Liu RN)1640 (Given - Provider: Anuj Liu RN)2019 (Given - Provider: Lizett Simmons, DAVID) 0232 [...] Hours, DAILY, First dose on Wed05/28/24 at 2002, Until Discontinued, Apply new patch to clean, [...] Routine documented in this encounter Care Teams Public Policy Mediator Relationship Specialty Start Date End Date None None PCP - General 05/27/24 09/17/24 documented as of this encounter
--- OUTSIDE RECORDS SUMMARY | 2024-10-20 12:52 | XMS_ITS | Encounter Summary ---
Author Organization [facility] Address [facility] [place] [address] Care Team Providers Care Grass Cutter Name Role Phone None Primary Care Provider Unavailabl e Encounter Details Date Type Department Care Team (Late st Contact Info) Description 05/28/2024 Telephone [place] [phone] Dolly Dan MD [facility] [place] [address] Social History Tobacco Use Types Packs/Day Years Used Date Smoking Tobacco: Every Day Cigarettes 1 25 Started: 12/28/1986; Last attempted to quit: 12/28/2011 Alcohol Use Standard Drinks/Week Comments No 0 (1 standard drink = 0.6 oz pur e alcohol) [facility] Utilities Answer Date Recorded In the past 12 months has e Lyrically [employer], gas, oil, or water [employer] threatened to shut off services in your [...] any time in the past 12 m [facility], were you homeless or living in a skilled nursing (including now)? No 05/29/2024 IPV Inpatient Questions [...] PM EDT I received a call from [facility] regarding Lux Dixon. This is a 49-year-old [...] intact. The patient will be transferred to [facility] ED for further evaluation and determine whether his symptoms are related to vascular disease. documented in this encounter Plan of Treatment Upcoming Encounters Date Type Department Care Team (Late st Contact Info) Description 10/23/2024 1:00 PM EST Appointment XRay at [address] [place] [phone] Isabela Hayward APRN [facility] [place] [address] 11/09/2024 1:30 PM EST Office [place] [phone] Isabela Hayward, LIAISON INSPECTION LABORATORY ASSISTANT [facility] [place] [address] 11/10/2024 10:00 AM EST Office [place] [phone] Dai Whitman, RESHMA 11/21/2024 2:15 PM EST Office Visit Endocrinology at [place] [phone] Dayanara Grover MD [facility] [place] [address] documented as of this encounter Visit Diagnoses Not on filedocumented in this encounter Care Teams Grass Cutter Relationship Specialty Start Date End Date None None PCP - General 05/27/24 09/17/24 documented as of this encounter
--- OUTSIDE RECORDS SUMMARY | 2024-10-20 12:52 | XMS_ITS | Encounter Summary ---
Author Organization [facility] [place] [address] Care Team Providers Care Candy Maker Name Role Phone Guanako Gusman MD Primary Care Provider [phone] Reason for Visit * Reason Comments Medication Refill Encounter Details Date Type Department Care Team (Late st Contact Info) Description 12/29/2014 Refill Cardiology at [address] [address] Amy Joshi, JUSTIN [address] [address] Medication Refill Social History Tobacco Use Types [...] 1:00 PM EST Appointment XRay at [address] [place] [address] Isabela Hayward APRN [facility] [place] [address] 11/09/2024 1:30 PM EST Office Visit [place] [address] Isabela Hayward, FELT STRIP FINISHER [facility] INFECTIOUS [place] [address] 11/10/2024 10:00 AM EST Office Visit [place] [address] Dai Whitman, RESHMA 11/21/2024 2:15 PM EST Office Visit [place] [address] Dayanara Grover MD [facility] DR ENDOCRINOLOGY [place] [address] documented as of this encounter Visit Diagnoses Not on filedocumented in this encounter Care Teams Candy Maker Relationship Specialty Start Date End Date Guanako Gusman MD [address] [place] [address] PCP - General 02/27/19 05/26/24 documented as of this encounter
--- OUTSIDE RECORDS SUMMARY | 2024-10-20 12:52 | XMS_ITS | Encounter Summary ---
Author Organization [place] [address] Care Team Providers Care Environmental Education Specialist Name Role Phone None Primary Care Provider Unavailabl e Encounter Details Date Type Department Care Team (Latest Contact Info) Description 05/30/2024 Travel Social History Tobacco Use Types Packs/Day Years Used Date Smoking Tobacco: Every Day Cigarettes 1 25 Started: 12/28/1986; Last attempted to quit: 12/28/2011 Alcohol Use Standard Drinks/Week Comments No 0 (1 standard drink = 0.6 oz pur e alcohol) [facility] Utilities Answer Date Recorded In the past [...] 10/23/2024 1:00 PM EST Appointment XRay at [address] [place] [phone] Isabela Hayward, INTERNAL CONTROL SPECIALIST [facility] [place] [address] 11/09/2024 1:30 PM EST Office [place] [address] Isabela Hayward [facility] [place] [address] 11/10/2024 10:00 AM EST Office [place] [address] Dai Whitman APRN 11/21/2024 2:15 PM EST Office [place] [phone] Dayanara Grover MD [facility] [place] [address] documented as of this encounter Visit Diagnoses Not on filedocumented in this encounter Care Teams Environmental Education Specialist Relationship Specialty Start Date End Date None None PCP - General 05/27/24 09/17/24 documented as of this encounter
--- OUTSIDE RECORDS SUMMARY | 2024-10-20 12:52 | XMS_ITS | Encounter Summary ---
Author Organization [facility] Address [facility] [place] [address] Care Team Providers Care Nurse Informatics Educator Name Role Phone Guanako Gusman MD Primary Care Provider [phone] Reason for Visit * Reason Onset Date Comments Medication Refill 08/25/2013 Encounter Details Date Type Department Care Team (Late st Contact Info) Description 08/25/2013 Refill Cardiology at [address] [address] Sarthak Pollard MD [facility] [place] [address] Medication Refill Social History Tobacco Use Types [...] 1:00 PM EST Appointment XRay at [address] [place] [address] Isabela Hayward, [facility] [address] 11/09/2024 1:30 PM EST Office [place] [address] Isabela Hayward, [facility] [address] 11/10/2024 10:00 AM EST Office Visit [place] [address] Dai Whitman APRN 11/21/2024 2:15 PM EST Office [place] [address] Dayanara Grover MD [facility] [address] documented as of this encounter Visit Diagnoses Diagnosis CAD (coronary artery disease)- Primary Coronary atherosclerosis of unspecified type of vessel, [place] or graft documented in this encounter Care Teams Nurse Informatics Educator Relationship Specialty Start Date End Date Guanako Gusman MD PCP - General 12/29/11 02/26/19 documented as of this encounter
--- OUTSIDE RECORDS SUMMARY | 2024-10-20 12:52 | XMS_ITS | Encounter Summary ---
Author Organization [facility] [place] [address] Care Team Providers Care Functional Manager Name Role Phone None Primary Care Provider Unavailabl e Encounter Details Date Type Department Care Team (Late st Contact Info) Description 06/03/2024 Notes [place] [address] Christy Lim Social History Tobacco Use Types Packs/Day Years Used Date Smoking Tobacco: Every Day Cigarettes 1 25 Started: 12/28/1986; Last attempted to quit: 12/28/2011 Alcohol Use Standard Drinks/Week Comments No 0 (1 standard drink = 0.6 oz pur e alcohol) [facility] Utilities Answer Date Recorded In the past 12 months has [employer], gas, oil, or water [employer] threatened to shut off services in [...] in a long term (including now)? No 05/29/2024 IPV Inpatient Questions [...] Christy Lim - 06/03/2024 2:07 PM EDT [facility] FELT FINISHING SUPERVISOR FOLLOW UP: Patient Type: Emergency Department Did the patient participate in scheduled follow up?: No Reason patient did not follow up?: Lost to follow up RC attempted to contact Pt at [phone] (M). Number is disconnected, unable to reach Pt. Services have ended. MARKO Zuniga ED Recovery Support Pager # [phone] documented in this encounter Plan of Treatment Upcoming Encounters Date Type Department Care Team (Late st Contact Info) Description 10/23/2024 1:00 PM EST Appointment XRay at [address] [place] [address] Isabela Hayward APRN [facility] [place] [address] 11/09/2024 1:30 PM EST Office Visit Infectious Disease at [facility] [address] Isabela Hayward APRN [facility] INFECTIOUS [place] [address] 11/10/2024 10:00 AM EST Office Visit Vascular Surgery at [place] [phone] Dai Whitman APRN 11/21/2024 2:15 PM EST Office [place] [phone] Dayanara Grover MD [facility] [place]OCRIN[place] [address] documented as of this encounter Visit Diagnoses Not on filedocumented in this encounter Care Teams Functional Manager Relationship Specialty Start Date End Date None None PCP - General 05/27/24 09/17/24 documented as of this encounter
--- OUTSIDE RECORDS SUMMARY | 2024-10-20 12:53 | XMS_ITS | Encounter Summary ---
Author Organization [facility] Address [facility] [place] [address] Care Team Providers Care Anesthesiology Medical Doctor Name Role Phone Patric Al MD Primary Care Provider [phone] Encounter Details Date Type Department Care Team (Late st Contact Info) Description 08/21/2013 11:35 AM EDT - 08/21/2013 12:35 PM EDT [place] [address] Sarthak Kahn MD [facility] [place] [address] CARDIAC CATHETERIZATION Social History Tobacco Use Types [...] appointments: -During 8am-5pm Wednesday through Wednesday call [phone] to speak with a nurse in the cardiology clinic -All other times call [phone] and ask to speak to the arabic translator chief projectionist. Return to work/ usual actvities: 1 week, as tolerated. No squatting or lifting more than 10 pounds until then. Driving: No driving for 48 hours after catheterization. Follow up Appointments: PCP: PATRIC AL MD at [phone] to see you on WednesdayAugust 28 at 10:50 am. Group Director, Dr. Oseguera, to see you on 09/20/14 at noon. Please call [phone] with questions. Diabetes medication instructions You should [...] juice or regular (not diet) soda 6 lifesfishfishmes small box of raisins 4 glucose tablets [...] * CHEST PAIN (ANGINA): AFTER YOUR VISIT (BURMESE) * CORONARY ARTERY DISEASE: AFTER YOUR VISIT (BURMESE) * DIABETES DIET GUIDELINES: AFTER YOUR VISIT (BURMESE) * HEART ATTACK: AFTER YOUR VISIT (BURMESE) * HEMOGLOBIN A1C: ABOUT THIS TEST (BURMESE) * HOME BLOOD GLUCOSE TEST: ABOUT THIS TEST (BURMESE) * CARDIAC CATHETERIZATION: AFTER YOUR VISIT (BURMESE) documented in this encounter Medications at Time of Discharge Medication Sig Dispensed Refills Start Date End Date nitroGLYcerin (NITROSTAT) 0.[address] [...] mg by mouth daily. aspirin 81 mg EC tablet Take 1 [...] Patient is a 38 y/o man from [place], [place]. He is disabled and on Social [...] Office of Care Management (OCM) / Clinical Microwave Engineer (CRC)/ Initial Assessment Discussed patient with Provider [...] to drive with medication. 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 CURRENT FUNCTIONAL STATUS: same SOCIAL / FAMILY [...] D for prescriptions. Uses [facility] in [facility] CURRENT HOME/COMMUNITY SERVICES/EQUIPMENT: None WEB SERVICES PROFESSIONAL REFERRAL: Notified WEB SERVICES PROFESSIONAL, Alexandru Casas regarding pt's [place] Medicaid. Pt's [place] Medicaid is not active per Alexandru Casas WEB SERVICES PROFESSIONAL. PRIMARY CARE PHYSICIAN: PATRIC AL MD ALEJANDRA [phone] / [facility] [id number] POTENTIAL DISCHARGE NEEDS: None identified at this [...] while hospitalized. Awaiting Endocrine consult. Calista Jaimes TEMPERING MACHINE OPERATOR CRC/Jaye Dennison MSN BSN RN CRC Office of Care Managment Pager [phone] . * Padma Marquez I, RD - 08/22/2013 11:42 AM EDT Nutrition Services Education Note Diet Rx: [facility]/Low Fat Patient Active Problem List Diagnosis Code [...] Weight loss options discussed Phase II Referral: [facility] Activity Summary: By discharge, patient will be [...] 1137 08/21/13 0833 08/21/13 0159 08/20/13 2354 08/20/13202513/13 1703 08/20/13 1323 POCGLU 199 193 259* [...] up with PCP or Dr Bird in [place] I reviewed the patient with and agree with the recommendations and plans * Sarthak Pollard MD - 08/22/2013 7:18 AM EDT Inpatient Cardiology Progress Note Patient Name: Lux Dixon Service: BASIN CLEANER / PA Responsible Attending: Dr Pollard Reason for continued hospitalization: Evaluation and management of NSTEMI S/p cardiac catheterization, PCI of LCX, being seen by Cardiac Rehabilitation [facility] 10, Endocrine consulted Active Problems: Active Hospital [...] ??? [DISCONTINUED] sodium chloride 0.9% Stopped (08/20/13 4655) Physical Exam: Vital Signs: Last value Range [...] 2v CABG and recurrent angina, +NSTEMI pending [facility]. Stable. Plan: 1. CAD/ CABGx2, stable Telemetry [...] discussed with Dr. Pollard. JUSTIN OROSCO Pager [phone] 08/22/2013 Cardiology Attending Note: I interviewed and [...] as oral agents. He lives in the [facility]. We will set him up to see Dr. Reji Lucia or one of his colleagues. Time spent at bedside and coordinating care: 35 mins. Sarthak Pollard MD, MS Staff Group Director Pager [phone] * Latonya Sanders - 08/21/2013 10:28 PM [...] pulses are palpable. Latonya Sanders MD # [id number] * Sarthak Pollard MD - 08/21/2013 8:36 AM EDT Inpatient Cardiology Progress Note Patient Name: Lux Dixon Jr. Service: BASIN CLEANER / PA Responsible Attending: Dr Pollard Reason [...] rhythm, 1 [facility] Meds: Scheduled Meds: ??? sodium chloride 0.9 [...] mcg/min (08/21/13215) ??? heparin 2,150 Units/hr (08/21/13 2206) ??? sodium chloride 0.9% Stopped (08/20/13 0080) Physical Exam: Vital Signs: Last value Range [...] 2v CABG and recurrent angina, +NSTEMI pending [facility]. Plan: 1. CAD/ CABGx2, [facility] today Needs risk factors addressed Has not [...] to his RPDA and occlusion of his walker river RCA since that time of his last [...] 35 mins. Sarthak Pollard MD, MS Staff Group Director Pager [phone] * Reny Kent RN - 08/20/2013 10:08 [...] between 00 and 0200. 0310) Patient alerted social staff worker that he is experiencing 3/10 left arm [...] Name: Lux Dixon Jr. MRN No - [id number] Date of - 1975 Age - 38 [...] CABG MARTINEZ-LAD, SVG-PDA and Obesity transferred from [facility] because of CP which started yesterday while he was driving. He drove for 6 hrs yesterday and this started while he was doing it. The pain initially in left arm and than came to chest and it was dull aching type, -10, no aggravating and relieved afetr leaning forward and sitting upright. The pain was coming and going and relieved after 1 shot of morphine at [place]. His work showed NSR ECG w/o ST changes, elevated 2nd set of trop and negative D-dimer, wbc of 15K, normal electrolytes, glucose of 546, normal BUN/cr. He was of plavix and started on heparin gtt. He had some CP on arrival to [facility] which was -01/15. ECG was normal. Dr. Horvath suggested to [...] FOR CABG performed by INNA TOVAR at [facility] MA[facility] OR ??? Cabg, artery-vein, single 01/04/2012 @CABG, VENOUS & ARTERIAL GRAFT;SINGLE VEIN GRAFT performed by INNA TOVAR at [facility] OR Family History: Family History Problem [...] FIND 2 capsules daily. Med Name: alan ??? Blood Sugar Diagnostic (FREESTYLE LITE STRIPS) [...] CABG MARTINEZ-LAD, SVG-PDA in 2011 transferred from [place] because of CP which is different than his previous episode of CP. This time pain started in arm and radiating to chest and is also mild 1-3 /10. He also drove for 6 hrs yesterday. He had positive tropsat [place] although his ECG was negative. The pain relieved after leaning forward. I have above mentioned DD and also his d-dimer at [place] was negative so low prob of PE. I would admit for ACS and cont heparin. i would also keep him NPO and starting on nitro drip per Dr. Horvath's rec. Admit to telemetry Cycle bio-markers Repeat EKG Continue aspirin, simvastatin, metoprolol, plavix 300 mg x1 (given at [place]) and heparin Check fasting lipid profile and [...] was reviewed and signed. 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 Diabetes History: Lux Dixon Jr. [...] of SVG to RPDA and occlusion of walker river RCA. LVEDP . PCI of mid and [...] up with PCP or Dr Bird in [place] ??? Obesity Weight is 130.5 Kg [...] SVG-PDA in 2011 and obesity transferred from [facility] for chest pain which started the day prior while he was during a [address]. The pain was initially in left arm and than came to chest and it was dull aching type, 1-01/15, no aggravating factors and relieved after leaning [...] or vomiting. Hospital Course: On admission to [facility], he had CP on arrival to [facility] which was 1-3. ECG was normal. He was started on [...] occlusion of SVG to RPDA, occlusion of walker river RCA. The SVG to RCA was not [...] up with PCP or Dr Bird in [place] Smoking cessation was advised & discussed. [...] appointments: -During 8am-5pm Wednesday through Wednesday call [phone] to speak with a nurse in the cardiology clinic -All other times call [phone] and ask to speak to the arabic translator chief projectionist. Return to work/ usual actvities: 1 week, as tolerated. No squatting or lifting more than 10 pounds until then. Driving: No driving for 48 hours after catheterization. Follow up Appointments: PCP: PATRIC AL MD at [phone] to see you on WednesdayAugust 28 at 10:50 am. Group Director, Dr. Oseguera, to see you on 09/20/14 at noon. Please call [phone] with questions. Diabetes medication instructions You should [...] Complete By Expires Referral to Cardiac Rehab [[id number] Custom] Process Instructions: If no progress note charted, please enter Clinical details in comments. Scheduling Instructions: Comments: Pt will participate in cardiac rehab @ [facility] Questions: Responses: Reason for referral NSTEMI Provider Contact Information: JALEN Billingsley NP Dr Bruce Andrus [phone] Discharge References/Attachments: Discharge References/Attachments CHEST PAIN (ANGINA): AFTER YOUR VISIT (BURMESE) CORONARY ARTERY DISEASE: AFTER YOUR VISIT (BURMESE) DIABETES DIET GUIDELINES: AFTER YOUR VISIT (BURMESE) HEART ATTACK: AFTER YOUR VISIT (BURMESE) HEMOGLOBIN A1C: ABOUT THIS TEST (BURMESE) HOME BLOOD GLUCOSE TEST: ABOUT THIS TEST (BURMESE) Signed: JUSTIN OROSCO Pager [phone] DATE: 08/22/2013 * Miscellaneous - Provider, Scanning - 08/20/2013 2:59 PM EDT * Miscellaneous - Provider, Scanning - 08/20/2013 2:58 PM EDT documented in this encounter Plan of Treatment Upcoming Encounters Date Type Department Care Team (Late st Contact Info) Description 10/23/2024 1:00 PM EST Appointment XRay at [address] [place] [address] Isabela Hayward APRN [facility] [place] [address] 11/09/2024 1:30 PM EST Office [place] [phone] Isabela Hayward, RESHMA [facility] [place] [address] 11/10/2024 10:00 AM EST Office [place] [phone] Dai Whitman APRN 11/21/2024 2:15 PM EST Office [place] [phone] Dayanara Grover MD [facility] [place] [address] Scheduled Orders Name Type Priority Associated Diagnoses Orde r Schedule EKG 12 Lead ECG STAT Chest pain One Time for 1 Occurrences starting 08/20/2013 until 08/20/2013 Scheduled Referrals Name Type Priority Associated Diagnoses Orde r Schedule Referral to Cardiac Rehab Outpatient Referral Routine NSTEMI (non-ST elevated myocardial infarction) Ordered: 08/22/2013 documented as of this encounter Procedures Procedure Name Priority Date/Time Associated Diagnosis Comments ORNAMENTAL METAL WORKER APPRENTICE SCAN 08/24/2013 11:52 AM EDT POCT GLUCOSE Routine 08/22/2013 11:52 AM EDT POCT GLUCOSE Routine 08/22/2013 7:47 AM EDT EKG 12-LEAD Routine 08/22/2013 7:45 AM EDT Chest pain BMP W/FASTING GLUCOSE Routine 08/22/2013 4:03 AM EDT DIFFERENTIAL, AUTOMATED Routine 08/22/20 4:03 AM EDT CARDIAC ENZYMES ([facility]/CGP) Routine 08/22/2013 4:03 AM EDT CBC (WITH DIFF) Routine 08/22/2013 4:03 AM EDT POCT GLUCOSE Routine 08/21/2013 10:43 PM EDT POCT GLUCOSE Routine 08/21/2013 8:28 PM EDT CARDIAC ENZYMES ([facility]/CGP) STAT 08/21/2013 6:36 PM EDT POCT GLUCOSE [...] Routine 08/21/20 3:53 AM EDT CARDIAC ENZYMES ([facility]/CGP) Routine 08/21/2013 3:53 AM EDT APTT Routine [...] STAT 08/20/2013 11:51 PM EDT CARDIAC ENZYMES ([facility]/CGP) STAT 08/20/2013 9:40 PM EDT XR CHEST [...] 08/20/2013 1: 45 PM EDT CARDIAC ENZYMES ([facility]/CGP) Routine 08/20/2013 1:45 PM EDT APTT Routine 08/20/2013 1:45 PM EDT PROTHROMBIN TIME Routine 08/20/2013 1:45 PM EDT CBC (WITH DIFF) Routine 08/20/2013 1:45 PM EDT MAGNESIUM Routine 08/20/2013 1:45 PM EDT BASIC METABOLIC PANEL Routine 08/20/2013 1:45 PM EDT POCT GLUCOSE Routine 08/20/2013 1:23 PM EDT documented in this encounter Results * SCAN DOC: ORNAMENTAL METAL WORKER APPRENTICE (08/24/2013 11:52 AM EDT) Anatomical Region Laterality [...] POC 199 60 - 199 mg/dL [facility] Comment: Supplemental ranges: <110 mg/dL before meals <200 mg/dL all other times of the day Blood specimen (specimen) 08/22/2013 7:47 AM EDT 08/22/2013 7:47 AM EDT Asad Biggs MD POINT OF CARE TEST O RDERABLES Performing Organization Address [facility] Co de Phone Number CERBRIAN CAENNIUM * EKG 12 Lead (08/22/2013 7:45 AM EDT) Ventricular rate 79 BPM MUSE SYSTEM Atrial Rate 79 BPM MUSE SYSTEM P-R Interval 182 ms MUSE SYSTEM QRS Duration 108 ms MUSE SYSTEM Q-T Interval 406 ms MUSE SYSTEM QTC Calculated (Bezet) 465 ms MUSE SYSTEM Calculated P Draper 57 degrees MUSE SYSTEM Calculated R Draper 23 degrees MUSE SYSTEM Calculated T Draper 2 degrees MUSE SYSTEM INTERPRETATION Normal sinus rhythm Cannot rule out Inferior infarct , age undetermined When compared with ECG of 21-AUG-2013 14:53, Borderline criteria for Inferior infarct are now present Confirmed by Brian DE, [facility] ([id number]) on 08/23/2013 10:09:45 AM MUSE SYSTEM 08/22/2013 7:45 AM EDT 08/23/2013 10:09 AM EDT Tim Uribe MD ECG ORDERABLES Performing Organization Address [facility] de Phone Number MUSE SYSTEM * (ABNORMAL) [...] Gran % 0.60 0.00 - 0.66 % [facility] MILLENNIUM Comment: Immature granulocytes(IG's)percentage and absolute count will include metamyelocytes, myelocytes, and promyelocytes. Blood smears from CBCs yielding IG's will be scanned manually for concordance. If this scan disagrees with the automated IG or if promyelocytes are noted, a manual differential will be performed. Immature Gran Absolute 0.06(H) 0.00 - 0.05 x10(3)/mc L [facility] MILLENNIUM Blood specimen (specimen) 08/22/2013 4:03 AM EDT 08/22/2013 4:42 AM EDT Tim Uribe MD HEMATOLOGY ORDERAB LES [facility] * (ABNORMAL) BMP w/fasting Glucose (08/22/2013 4:03 AM EDT) Glucose Fasting 170(H) 65 - 99 mg/dL [facility] Comment: ?Fasting* Glucose Interpretive Criteria [...] of Diabetes Mellitus, Position Statement from the [place] Diabetes Association. ??Diabetes Care, Volume 33, Supplement 1, Nov 2009 Blood Urea Nitrogen 6(L) 10 - 20 mg/dL [facility] Creatinine 0.62(L) 0.80 - 1.50 mg/dL [facility] MILLENNIUM Comment: Please note that the pediatric reference intervals supplied above were not validated at [facility]. Results from pediatric patients should be interpreted [...] Tim Uribe MD CHEMISTRY ORDERABL ES [facility]ERBRIAN CERDAIUM * (ABNORMAL) Cardiac Enzymes (08/22/2013 4:03 AM EDT) Troponin-T 0.95(H) <=0.03 ng/mL [facility] Comment: 0.03 ng/mL: Represents the 99th percentile upper reference limit for normals. >0.03 ng/mL: Elevated cardiac troponin T level indicative of myocardial damage. Diagnosis of acute, evolving or recent [place] requires a typical rise and gradual fall [...] consensus document of the Joint Society of Cardiology/[place] College of Cardiology Committee for the redefinition of myocardial infarction. Journal of the [place] College of Cardiology 2000; 36: 959-969] Creatine Kinase 455(H) 0 - 200 unit/L [facility] Blood specimen (specimen) 08/22/2013 4:03 AM EDT 08/22/2013 4:42 AM EDT Narrative Resulting Agency Comment Spec In Lab Tim Uribe MD CHEMISTRY ORDERABL ES [facility]NI[facility] * (ABNORMAL) CBC (with Diff) (08/22/2013 4:03 [...] of variation 12.4 10.9 - 14.4 % [facility] Mean Platelet Volume 11.2 9.0 - 12.0 fL [facility] Blood specimen (specimen) 08/22/2013 4:03 AM EDT 08/22/2013 4:42 AM EDT Narrative Resulting Agency Comment Spec In Lab Tim Uribe MD HEMATOLOGY ORDERAB LES Performing Organization Address [facility] Co de Phone Number [facility] * POCT Glucose (08/21/2013 10:43 PM EDT) Glucose, POC 193 60 - 199 mg/dL [facility] Comment: Supplemental ranges: <110 mg/dL before meals <200 mg/dL all other times of the day Blood specimen (specimen) 08/21/2013 10:43 PM EDT 08/21/2013 10:43 PM EDT Asad Biggs MD POINT OF CARE TEST O RDERABLES Performing Organization Address [facility] de Phone Number [facility] * (ABNORMAL) POCT Glucose (08/21/2013 8:28 PM EDT) Glucose, POC 259(H) 60 - 199 mg/dL [facility] Comment: Supplemental ranges: <110 mg/dL before meals <200 mg/dL all other times of the day Blood specimen (specimen) 08/21/2013 8:28 PM EDT 08/21/2013 8:28 PM EDT Asad Biggs MD POINT OF CARE TEST O RDERABLES Performing Organization Address [facility] de Phone Number [facility] * (ABNORMAL) Cardiac Enzymes (08/21/2013 6:36 PM EDT) Troponin-T 0.93(H) <=0.03 ng/mL [facility] Comment: 0.03 ng/mL: Represents the 99th percentile upper reference limit for normals. >0.03 ng/mL: Elevated cardiac troponin T level indicative of myocardial damage. Diagnosis of acute, evolving or recent [place] requires a typical rise and gradual fall [...] consensus document of the Joint Society of Cardiology/[place] College of Cardiology Committee for the redefinition of myocardial infarction. Journal of the [place] College of Cardiology 2000; 36: 959-969] Creatine Kinase 594(H) 0 - 200 unit/L [facility] Blood specimen (specimen) 08/21/2013 6:36 PM EDT 08/21/2013 6:47 PM EDT Narrative Resulting Agency Comment Spec In Lab Sarthak Pollard MD CHEMISTRY ORDERABLES Performing Organization Address [facility] Co de Phone Number [facility] [employer] * POCT Glucose (08/21/2013 4:25 PM EDT) [facility] Glucose, POC 138 60 - 199 mg/dL [facility] [employer] Comment: Supplemental ranges: <110 mg/dL before meals <200 mg/dL all other times of the day Blood specimen (specimen) 08/21/2013 4:25 PM EDT 08/21/2013 4:25 PM EDT Asad Biggs MD POINT OF CARE TEST O RDERABLES Performing Organization Address [facility] Co de Phone Number [facility] [employer] * EKG 12 Lead (08/21/2013 2:53 PM EDT) Pathologist [facility] Ventricular rate 75 BPM MUSE SYSTEM Atrial Rate 75 BPM MUSE SYSTEM P-R Interval 172 ms MUSE SYSTEM QRS Duration 106 ms MUSE SYSTEM Q-T Interval 388 ms MUSE SYSTEM QTC Calculated (Bezet) 433 ms MUSE SYSTEM Calculated P Draper 11 degrees MUSE SYSTEM Calculated R Draper 35 degrees MUSE SYSTEM Calculated T Draper 1 degrees MUSE SYSTEM INTERPRETATION Normal sinus rhythm Normal ECG When compared with ECG of 21-AUG-2013 02:54, No significant change was found Confirmed by Biran DE, [place] (49) on 08/22/2013 3:01:48 PM MUSE SYSTEM 08/21/2013 2:53 PM EDT 08/22/2013 3:01 PM EDT Tim Uribe MD ECG ORDERABLES Performing Organization Address [facility] Co de Phone Number MUSE SYSTEM * Cardiac Catheterization (08/21/2013 2:38 PM EDT) Anatomical Region Laterality Modality Other Narrative 08/21/2013 7:29 PM EDT Procedure Note Provider, Scanning - 08/21/2013 3:30 PM EDT Asad Biggs MD CARDIAC CATH ORDERAB LES * (ABNORMAL) POCT Glucose (08/21/2013 11:37 AM EDT) Glucose, POC 200(H) 60 - 199 mg/dL [facility] Comment: Supplemental ranges: <110 mg/dL before meals <200 mg/dL all other times of the day Blood specimen (specimen) 08/21/2013 11:37 AM EDT 08/21/2013 11:37 AM EDT Asad Biggs MD POINT OF CARE TEST O RDERABLES Performing Organization Address [facility] de Phone Number [facility] * (ABNORMAL) APTT (08/21/2013 11:09 AM EDT) Partial Thromboplastin Time 63(H) 25 - 35 sec [facility] Comment: Recommended therapeutic PTT range for full dose unfractionated heparin is 80-114 seconds. Blood specimen (specimen) 08/21/2013 11:09 AM EDT 08/21/2013 11:42 AM EDT Narrative Resulting Agency Comment Spec In Lab Asad Biggs MD HEMATOLOGY ORDERABLE S [facility] * Echocardiogram Transthoracic(Leb) (08/21/2013 9:16 AM EDT) EF 65 HEARTLAB SYSTEM Anatomical Region Laterality Modality Other 08/21/2013 Narrative 08/21/2013 9:51 AM EDT Procedure: ? Transthoracic Echocardiogram Patient: ? QUIANA Llanos ?(Age): 1975(38) Med Rec#: ?[id number] ? Sex: ?M ? Site Loc: ?[facility] ? Ht / Wt: ??180(cm)/127(kg) Pt. Loc: ? Adult Floor ?BSA: ?2.52 Study Date: ?08/21/2013 ? Pt. Type: Inpatient Tape: ? Referring: Eben Bingham Referring: AKANKSHA CAI Supervisor Cloth Winding: Patric Blunt [facility] Interpreting Fellow: Luca Wilson ([id number]) Diagnosis: ??Chest pain (786.50) CPT Code(s): ??Echo Full (63054), ??Spectral Doppler (82545), ??Color Doppler (13062), Indication(s): ??Chest Pain Rhythm: HR ?BP ?121/62 [...] ? Mid-Inferior ?Normal ? Mid-Inferoseptal ?Normal ? Upham-Septal ? Normal ? [place]am-Anterior ? Normal ? [place]am-Lateral ?Normal ? [place]am-Inferior ? Normal ? [place]am-Tip ?Normal ? Chambers ?Value ?Units (Range) ? [...] 08/21/2013 09:50:27 Images reviewed and interpretation verified [facility] Cardiac Ultrasound Laboratory Resulting Agency Comment [id number] Procedure Note Umair Brock MD - 08/21/2013 Procedure: Transthoracic Echocardiogram Patient: QUIANA Llanos (Age): 1975(38) Med Rec#: [id number] Sex: M Site Loc: [facility] Ht / Wt: 180(cm)/127(kg) Pt. Loc: Adult Floor BSA: 2.52 Study Date: 08/21/2013 Pt. Type: Inpatient Tape: Referring: Eben Bingham Referring: AKANKSHA CAI Supervisor Cloth Winding: Patric Blunt RD Interpreting Fellow: Luca Wilson ([id number]) Diagnosis: Chest pain (786.50) CPT Code(s): Echo Full (07488), Spectral Doppler (10510), Color Doppler (34104), Indication(s): Chest Pain Rhythm: HR BP 121/62 [...] Normal Mid-Posterolateral Normal Mid-Inferior Normal Mid-Inferoseptal Normal [place]am-Septal Normal [place]-Anterior Normal [place]-Lateral Normal [place]-Inferior Normal [place]-Tip Normal Chambers Value Units (Range) LV EF [...] 08/21/2013 09:50:27 Images reviewed and interpretation verified [facility] Cardiac Ultrasound Laboratory Eben Ruiz MD ECHO ORDERABLES * (ABNORMAL) POCT Glucose (08/21/2013 8:33 AM EDT) Glucose, POC 202(H) 60 - 199 mg/dL [facility] Comment: Supplemental ranges: <110 mg/dL before meals <200 mg/dL all other times of the day Blood specimen (specimen) 08/21/2013 8:33 AM EDT 08/21/2013 8:33 AM EDT Asad Biggs MD POINT OF CARE TEST O RDERABLES [facility] ROBYENNIUM * (ABNORMAL) APTT (08/21/2013 3:53 AM EDT) Partial Thromboplastin Time 61(H) 25 - 35 sec CERNER MILLENNIUM Comment: Recommended therapeutic PTT range for full dose unfractionated heparin is 80-114 seconds. Blood specimen (specimen) 08/21/2013 3:53 AM EDT 08/21/2013 4:00 AM EDT Narrative Resulting Agency Comment Spec In Lab Eebn Ruiz MD HEMATOLOGY ORDERABLE S [facility] * (ABNORMAL) Differential, Automated (08/21/2013 3:53 [...] damage. Diagnosis of acute, evolving or recent [place] requires a typical rise and gradual fall [...] consensus document of the Joint Society of Cardiology/[place] College of Cardiology Committee for the redefinition of myocardial infarction. Journal of the [place] College of Cardiology 2000; 36: 959-969] Creatine Kinase 777(H) 0 - 200 unit/L CERNER MILLENNIUM Blood specimen (specimen) 08/21/2013 3:53 AM EDT 08/21/2013 4:00 AM EDT Narrative Resulting Agency Comment Spec In Lab Eben Ruiz MD CHEMISTRY ORDERABLES CERNER ROBYENNIUM * (ABNORMAL) BMP w/fasting Glucose (08/21/2013 3:53 [...] of Diabetes Mellitus, Position Statement from the [place] Diabetes Association. ??Diabetes Care, Volume 33, Supplement 1, Nov 2009 Blood Urea Nitrogen 15 10 - 20 mg/dL CERNER MILLENNIUM Creatinine 0.67(L) 0.80 - 1.50 mg/dL CERNER MILLENNIUM Comment: Please note that the pediatric reference intervals supplied above were not validated at [facility]. Results from pediatric patients should be interpreted [...] In Lab Eben Ruiz MD CHEMISTRY ORDERABLES [facility] M[facility] * (ABNORMAL) CBC (with Diff) (08/21/2013 [...] of variation 12.3 10.9 - 14.4 % [facility] Mean Platelet Volume 11.1 9.0 - 12.0 fL [facility] ROBYENNIUM Blood specimen (specimen) 08/21/2013 3:53 AM EDT 08/21/2013 4:00 AM EDT Narrative Resulting Agency Comment Spec In Lab Asad Biggs MD HEMATOLOGY ORDERABLE S Performing Organization Address [facility] de Phone Number [facility] * Prothrombin Time (08/21/2013 3:53 AM EDT) Prothrombin Time 13.5 12.0 - 15.0 sec [facility] Comment: [facility] Transfusion Committee Guidelines: INR less than 2.0, PTT less than OR equal to 43.5 seconds, or Fibrinogen greater than or equal to 100 mg/dl indicate adequate procoagulant activity for hemostasis in patients without underlying bleeding disorders. International Normalization Ratio 1.0 0.9 - 1.1 [facility] Blood specimen (specimen) 08/21/2013 3:53 AM EDT 08/21/2013 4:00 AM EDT Narrative Resulting Agency Comment Spec In Lab Asad Biggs MD HEMATOLOGY ORDERABLE S Performing Organization Address [facility] de Phone Number [facility] * (ABNORMAL) Triglyceride (08/21/2013 3:53 AM EDT) Triglyceride 733(H) <=149 mg/dL [facility] Comment: Reference Range: Normal triglycerides: ??<150 mg/dL Borderline high: ??150-199 mg/dL High: ??200-499 mg/dL Very high: ??>qk=914 mg/dL ELISEO 2001; 285(19):4179-2740 Blood specimen (specimen) 08/21/2013 3:53 AM EDT 08/21/2013 4:00 AM EDT Narrative Resulting Agency Comment Spec In Lab Eben Ruiz MD CHEMISTRY ORDERABLES Performing Organization Address [facility] de Phone Number [facility] * (ABNORMAL) HDL/Cholesterol Profile (08/21/2013 3:53 AM EDT) Cholesterol, Total 218(H) <=199 mg/dL [facility] Comment: Recommendations of the NCEP Adult Treatment Panel for the following risk cutoff thresholds for the [place] population: Desirable: <200 mg/dL Borderline High: 200-239 mg/dL High: > or = 240 mg/dL HDL Cholesterol 24(L) >=40 mg/dL [facility] Comment: Reference range: ??Low HDL: ?? < 40 mg/dL ??Normal: ?40-60 mg/dL ??Desirable: > 60 mg/dL ELISEO 2001; 285(19):0443-0169 Cholesterol/HDL Ratio 9.1 ratio [facility] Comment: A Cholesterol to HDL ratio below 4:1 is desirable. ??Studies suggest that increased CAD risk occurs at ratios above 5 for females and above 6 for men. ? [place] Heart Association ??(http://www.americanheart.org) ? Jazmine Int Med, 1994; 121:641 ? AM J Med, 1998; 105(1A):48S Blood specimen (specimen) 08/21/2013 3:53 AM EDT 08/21/2013 4:00 AM EDT Narrative Resulting Agency Comment Spec In Lab Eben Ruiz MD CHEMISTRY ORDERABLES Performing Organization Address City/[facility]/ZIP Co de Phone Number [facility] * (ABNORMAL) LDL Cholesterol, Direct (08/21/2013 3:53 AM EDT) LDL Cholesterol, Direct 107(H) <=99 mg/dL [facility] Comment: The National Cholesterol Education Program (NCEP) has set the following guidelines for LDL Cholesterol: Reference range: ?? Optimal: ?<100 mg/dL ?? Near Optimal/Above Optimal: ?? 100-129 mg/dL ?? Borderline high: ?130-159 mg/dL ?? High: ? 160-189 mg/dL ?? Very high: ?>ub=370 mg/dL ELISEO 2001: 285(19):7594-5291 Blood specimen (specimen) 08/21/2013 3:53 AM EDT 08/21/2013 4:00 AM EDT Narrative Resulting Agency Comment Spec In Lab Eben Ruiz MD CHEMISTRY ORDERABLES [facility] * (ABNORMAL) Hemoglobin A1c (08/21/2013 3:53 AM EDT) Hemoglobin A1c 10.0(H) 4.3 - 6.1 % [facility] Comment: The [place] Diabetes Association (ADA) has stated that HbA1c [...] 2013:36;suppl 1:S11-S66. Estimated Average Glucose 240 mg/dL [facility] Comment: eAG equivalents for HbA1c percentages: [...] into estimated average glucose values. ??Diabetes Care 2008:31(8):5410-3086. Blood specimen (specimen) 08/21/2013 3:53 AM EDT 08/21/2013 4:00 AM EDT Narrative Resulting Agency Comment Spec In Lab Eben Ruiz MD CHEMISTRY ORDERABLES Performing Organization Address [facility] de Phone Number ARIAN CAENNIUM * EKG 12 Lead (08/21/2013 2:54 AM EDT) Ventricular rate 68 BPM MUSE SYSTEM Atrial Rate 68 BPM MUSE SYSTEM P-R Interval 188 ms MUSE SYSTEM QRS Duration 104 ms MUSE SYSTEM Q-T Interval 406 ms MUSE SYSTEM QTC Calculated (Bezet) 431 ms MUSE SYSTEM Calculated P [place] 4 degrees MUSE SYSTEM Calculated R [place] 28 degrees MUSE SYSTEM Calculated T Dra[place] 21 degrees MUSE SYSTEM INTERPRETATION Normal sinus rhythm Nonspecific T wave abnormality Abnormal ECG When compared with ECG of 20-AUG-2013 15:19, No significant change was found Confirmed by Pablito Torres MD ([id number]) on 08/21/2013 12:56:35 PM MUSE SYSTEM 08/21/2013 2:54 AM EDT 08/21/2013 12:56 PM EDT Eben Ruiz MD ECG ORDERABLES Performing Organization Address [facility] de Phone Number MUSE SYSTEM * (ABNORMAL) POCT Glucose (08/21/2013 1:59 AM EDT) Glucose, POC 262(H) 60 - 199 mg/dL [facility] Comment: Supplemental ranges: <110 mg/dL before meals <200 mg/dL all other times of the day Blood specimen (specimen) 08/21/2013 1:59 AM EDT 08/21/2013 1:59 AM EDT Asad Biggs MD POINT OF CARE TEST O RDERABLES Performing Organization Address [facility] de Phone Number [facility] * (ABNORMAL) POCT Glucose (08/20/2013 11:54 PM EDT) Glucose, POC 290(H) 60 - 199 mg/dL [facility] Comment: Supplemental ranges: <110 mg/dL before meals <200 mg/dL all other times of the day Blood specimen (specimen) 08/20/2013 11:54 PM EDT 08/20/2013 11:54 PM EDT Asad Biggs MD POINT OF CARE TEST O RDERABLES Performing Organization Address [facility] Phone Number [facility] * APTT (08/20/2013 11:51 PM EDT) Partial Thromboplastin Time 35 25 - 35 sec [facility] Comment: Recommended therapeutic PTT range for full dose unfractionated heparin is 80-114 seconds. Blood specimen (specimen) 08/20/2013 11:51 PM EDT 08/21/2013 12:01 AM EDT Narrative Resulting Agency Comment Spec In Lab Asad Biggs MD HEMATOLOGY ORDERABLE S Performing Organization Address [facility] de Phone Number [facility] * (ABNORMAL) Cardiac Enzymes (08/20/2013 9:40 PM EDT) Troponin-T 0.74(H) <=0.03 ng/mL [facility] Comment: 0.03 ng/mL: Represents the 99th percentile upper reference limit for normals. >0.03 ng/mL: Elevated cardiac troponin T level indicative of myocardial damage. Diagnosis of acute, evolving or recent [place] requires a typical rise and gradual fall [...] consensus document of the Joint Society of Cardiology/[place] College of Cardiology Committee for the redefinition of myocardial infarction. Journal of the [place] College of Cardiology 2000; 36: 959-969] Creatine [...] (ABNORMAL) POCT Glucose (08/20/2013 8:26 PM EDT) [facility] Glucose, POC 200(H) 60 - 199 mg/dL [facility] Comment: Supplemental ranges: <110 mg/dL before meals <200 mg/dL all other times of the day Blood specimen (specimen) 08/20/2013 8:26 PM EDT 08/20/2013 8:26 PM EDT Asad Biggs MD POINT OF CARE TEST O RDERAScubaTribe Performing Organization Address [facility] de Phone Number [facility] * (ABNORMAL) POCT Glucose (08/20/2013 5:03 PM EDT) [facility] Glucose, POC 230(H) 60 - 199 mg/dL [facility] Comment: Supplemental ranges: <110 mg/dL before meals <200 mg/dL all other times of the day Blood specimen (specimen) 08/20/2013 5:03 PM EDT 08/20/2013 5:03 PM EDT Asad Biggs MD POINT OF CARE TEST O RDERAHERNANDEZ Performing Organization Address [facility] de Phone Number [facility] * EKG 12 Lead (08/20/2013 3:19 PM EDT) [facility] Ventricular rate 68 BPM MUSE SYSTEM Atrial Rate 68 BPM MUSE SYSTEM P-R Interval 182 ms MUSE SYSTEM QRS Duration 100 ms MUSE SYSTEM Q-T Interval 410 ms MUSE SYSTEM QTC Calculated (Bezet) 435 ms MUSE SYSTEM Calculated P Draper 3 degrees MUSE SYSTEM Calculated R Draper 19 degrees MUSE SYSTEM Calculated T [place] 35 degrees MUSE SYSTEM INTERPRETATION Normal sinus [...] MD HEMATOLOGY ORDERABLE S Performing Organization Address [facility] Co de Phone Number ARIAN CERDAIUM * Magnesium (08/20/2013 1:45 PM EDT) Magnesium 0.74 0.69 - 1.07 mmol/L CERNER MILLENNIUM Blood specimen (specimen) 08/20/2013 1:45 PM EDT 08/20/2013 1:54 PM EDT Narrative Resulting Agency Comment Spec In Lab Asad Biggs MD CHEMISTRY ORDERABLES Performing Organization Address [facility] de Phone Number ARIAN CAENNIUM * (ABNORMAL) Cardiac Enzymes (08/20/2013 1:45 PM EDT) Troponin-T 0.34(H) <=0.03 ng/mL CERNER MILLENNIUM Comment: 0.03 ng/mL: Represents the 99th percentile upper reference limit for normals. >0.03 ng/mL: Elevated cardiac troponin T level indicative of myocardial damage. Diagnosis of acute, evolving or recent [place] requires a typical rise and gradual fall [...] consensus document of the Joint Society of Cardiology/[place] College of Cardiology Committee for the redefinition of myocardial infarction. Journal of the [place] College of Cardiology 2000; 36: 959-969] Creatine Kinase 505(H) 0 - 200 unit/L CERNER MILLENNIUM Blood specimen (specimen) 08/20/2013 1:45 PM EDT 08/20/2013 1:54 PM EDT Narrative Resulting Agency Comment Spec In Lab Asad Biggs MD CHEMISTRY ORDERABLES CERNER PRASHANTIUM * (ABNORMAL) Basic Metabolic Panel (non-fasting) (08/20/2013 1:45 PM EDT) Glucose 246(H) 60 - 199 mg/dL CERNER MILLENNIUM Comment:Diabetes: >=200 mg/d L plus symptoms Blood Urea Nitrogen 15 10 - 20 mg/dL CERNER MILLENNIUM Creatinine 0.68(L) 0.80 - 1.50 mg/dL CERNER MILLENNIUM Comment: Please note that the pediatric reference intervals supplied above were not validated at [facility]. Results from pediatric patients should be interpreted [...] Biggs MD CHEMISTRY ORDERABLES Performing Organization Address [facility] de Phone Number [facility] * (ABNORMAL) APTT (08/20/2013 1:45 PM EDT) Partial Thromboplastin Time 40(H) 25 - 35 sec [facility] Comment: Recommended therapeutic PTT range for full dose unfractionated heparin is 80-114 seconds. Blood specimen (specimen) 08/20/2013 1:45 PM EDT 08/20/2013 1:45 PM EDT Narrative Resulting Agency Comment Spec In Lab Asda Biggs MD HEMATOLOGY ORDERABLE S Performing Organization Address [facility] Phone Number [facility] * Prothrombin Time (08/20/2013 1:45 PM EDT) Prothrombin Time 13.7 12.0 - 15.0 sec [facility] Comment: [facility] Transfusion Committee Guidelines: INR less than 2.0, PTT less than OR equal to 43.5 seconds, or Fibrinogen greater than or equal to 100 mg/dl indicate adequate procoagulant activity for hemostasis in patients without underlying bleeding disorders. International Normalization Ratio 1.0 0.9 - 1.1 [facility] Blood specimen (specimen) 08/20/2013 1:45 PM EDT 08/20/2013 1:45 PM EDT Narrative Resulting Agency Comment Spec In Lab Asad Biggs MD HEMATOLOGY ORDERABLE S Performing Organization Address [facility] de Phone Number [facility] * D-Dimer, Quantitative (08/20/2013 1:45 PM EDT) D-Dimer <200 0 - 500 FEU ng/ml [facility] Comment: The D-Dimer assay is used [...] MD HEMATOLOGY ORDERABLE S Performing Organization Address City/[facility]/ZIP Co de Phone Number CERBRIAN MILLENNIUM * (ABNORMAL) CBC (with Diff) (08/20/2013 [...] MD HEMATOLOGY ORDERABLE S Performing Organization Address [facility] Phone Number ARIAN NELSON * Blue Tube HOLD (08/20/2013 1:45 PM EDT) Blue Hold Sample in lab. ARIAN NELSON Blood specimen (specimen) 08/20/2013 1:45 PM EDT 08/20/2013 1:45 PM EDT Asad Biggs MD HEMATOLOGY ORDERABLE S Performing Organization Address [facility] Phone Number ARIAN NELSON * Green Tube HOLD (08/20/2013 1:45 PM EDT) Green Hold Sample in lab. ARIAN NELSON Blood specimen (specimen) 08/20/2013 1:45 PM EDT 08/20/2013 1:45 PM EDT Asad Biggs MD CHEMISTRY ORDERABLES Performing Organization Address [facility] Number ARIAN NELSON * (ABNORMAL) POCT Glucose (08/20/2013 1:23 PM EDT) Glucose, POC 243(H) 60 - 199 mg/dL ARIAN NELSON Comment: Supplemental ranges: <110 mg/dL before meals <200 mg/dL all other times of the day Blood specimen (specimen) 08/20/2013 1:23 PM EDT 08/20/2013 1:23 PM EDT Asad Biggs MD POINT OF CARE TEST O RDERABLES Performing Organization Address [facility] Phone Number ARIAN NELSON documented in this [...] in sodium chloride 0.9% 50 mL infusion (VP DIRECTOR OF FINANCE) CONTINUOUS PRN, Starting on Wed08/21/13 at 1345, [...] than 145 sec X 2 - call warehouse delivery driver See Bolus dosing guidance for aPTT values [...] insulin and resume prior schedule. , Routine 1835 (Given - Provider: Sana Bella, DAVID)2021 (Given [...] Oral, 2 TIMES DAILY, First dose on 08/20/13 at 2100, Until Discontinued, Routine 2016 (Given [...] than 145 sec X 2 - call warehouse delivery driver See Bolus dosing guidance for aPTT values [...] RN) 0216 (Rate/Dose Change - Provider: Reny Kent, DAVID)1152 (New Bag - Provider: Lola iTpton, DAVID)1319 (Stopped - Provider: Evy Sánchez RN) sodium chloride 0.9% infusion (CANCELED) 1,000 mL, at 100 mL/hr, Intravenous, CONTINUOUS, Starting on Wed08/20/13 at 1545, Until Wed08/21/13 at 1441 1556 (New Bag - Provider: Sana Bella RN)2155 (Stopped - Provider: Reny Kent, DAVID - Comment: stop per Dr. Golden) 1000 (Canceled Entry - Provider: Lola Tipton, DAVID)1050 (Canceled Entry - Provider: Lola Tipton, DAVID) [...] in sodium chloride 0.9% 50 mL infusion (VP DIRECTOR OF FINANCE) (CANCELED) CONTINUOUS PRN, Starting on Wed08/21/13 at [...] Angel Finley, DAVID)1412 (Given - Provider: Fredrick Villegas, DAVID) flu [...] , Routine 0033 (Given - Provider: Reny Kent, DAVID) lidocaine (XYLOCAINE) 10 mg/mL (1 %) injection [...] Routine documented in this encounter Care Teams Anesthesiology Medical Doctor Relationship Specialty Start Date End Date Patric Al MD PCP - General 12/29/11 02/26/19 documented as of this encounter
--- OUTSIDE RECORDS SUMMARY | 2024-10-20 12:53 | XMS_ITS | Encounter Summary ---
Author Organization [facility] Address [facility] [place] [address] Care Team Providers Care Bias Machine Operator Helper Name Role Phone Guanako Gusman MD Primary Care Provider [phone] Encounter Details Date Type Department Care Team (Late st Contact Info) Description 08/20/2013 Telephone Cardiology at [address] [address] Luz Horvath MD [facility] [place] [address] Social History Tobacco Use Types Packs/Day Years [...] Transfer call from Dr. Akanksha Torres at [facility]. 38 yo s/p recent CABG 12/20 ([place]-> [...] 70s, 99% on 2 L. Transfer to [facility] [place] for mgmt of UA/NSTEMI in noncompliant diabetic with recent CABG. Likely cardiac cath tomorrow. documented in this encounter Plan of Treatment Upcoming Encounters Date Type Department Care Team (Late st Contact Info) Description 10/23/2024 1:00 PM EST Appointment XRay at [address] [place] [phone] Isabela Hayward, RESHMA [facility] [place] [address] 11/09/2024 1:30 PM EST Office [place] [phone] Isabela Hayward [employer] [facility] [place] [address] 11/10/2024 10:00 AM EST Office [place] [phone] Dai Whitman, RESHMA 11/21/2024 2:15 PM EST Office [place] [phone] Dayanara Grover MD [facility] [place] [address] documented as of this encounter Visit Diagnoses Not on filedocumented in this encounter Care Teams Bias Machine Operator Helper Relationship Specialty Start Date End Date Guanako Gusman MD PCP - General 12/29/11 02/26/19 documented as of this encounter
--- OUTSIDE RECORDS SUMMARY | 2024-10-20 12:53 | XMS_ITS | Encounter Summary ---
Author Organization [facility] Address [facility] [place] [address] Care Team Providers Care Day [employer] Charter Bus Driver Name Role Phone Guanako Gusman MD Primary Care Provider [phone] Encounter Details Date Type Department Care Team (Late st Contact Info) Description 02/09/2012 10:27 AM EDT - 02/09/2012 11:59 PM EDT Hospital Encounter XRay at [address] [place] [address] Chest pain Social History Tobacco Use Types [...] 1:00 PM EST Appointment XRay at [address] [place] [address] Isabela Hayward APRN [facility] [place] [address] 11/09/2024 1:30 PM EST Office Visit Infectious Disease at [facility] [place] [address] Isabela Hayward APRN [facility] [place] [address] 11/10/2024 10:00 AM EST Office Visit [place] [phone] Dai Whitman APRN 11/21/2024 2:15 PM EST Office Visit [place] [address] Dayanara Grover MD [facility] [place] [address] documented as of this encounter Procedures Procedure [...] effusion. Normal size of heartand mediastinum. Ricky Graham PA IMG DX ORDERABLES documented in this encounter Visit Diagnoses Diagnosis Chest pain Chest pain, unspecified documented in this encounter Care Teams Day [employer] Charter Bus Driver Relationship Specialty Start Date End Date Guanako Gusman MD PCP - General 12/29/11 02/26/19 documented as of this encounter
--- OUTSIDE RECORDS SUMMARY | 2024-10-20 12:53 | XMS_ITS | Encounter Summary ---
Author Organization [facility] Address [facility] [place] [address] Care Team Providers Care Gore Stitcher Name Role Phone Guanako Gusman MD Primary Care Provider [phone] Reason for Visit * Reason Comments Follow Up Surgery Encounter Details Date Type Department Care Team (Late st Contact Info) Description 02/09/2012 11:00 AM EDT Office Visit [place] [address] Inna Tovar MD [facility] [place] [address] Chest pain; S/P CABG (coronary artery bypass [...] 10/23/2024 1:00 PM EST Appointment XRay at [address] [place] [address] Isabela Hayward APRN [facility] INFECTIOUS [place] [address] 11/09/2024 1:30 PM EST Office Visit Infectious Disease at [facility] [place] [address] Isabela Hayward, RESHMA [facility] [place] [address] 11/10/2024 10:00 AM EST Office Visit [place] [address] Whitman Dai CunninghamRESHMA 11/21/2024 2:15 PM EST Office Visit [place] [address] Dayanara Grover MD [facility] [place] [address] documented as of this encounter Procedures Procedure [...] (Bezet) 453 ms MUSE SYSTEM Calculated P [place] 41 degrees MUSE SYSTEM Calculated R [place] 25 degrees MUSE SYSTEM Calculated T [place] 74 degrees MUSE SYSTEM INTERPRETATION Sinus tachycardia [...] status documented in this encounter Care Teams Gore Stitcher Relationship Specialty Start Date End Date Guanako Gusman MD PCP - General 12/29/11 02/26/19 documented as of this encounter
--- OUTSIDE RECORDS SUMMARY | 2024-10-20 12:53 | XMS_ITS | Encounter Summary ---
Author Organization [facility] Address [facility] [place] [address] Care Team Providers Care Food Safety Manager Name Role Phone Patric Al MD Primary Care Provider Reason for Referral * (Routine) - Closed by system - Referral Specialty Diagnoses / Procedures Referred By Contac t Referred To Contact Cardiac Rehabilitation Diagnoses NSTEMI (non-ST elevated myocardial infarction) Sarthak Pollard MD [facility] [place] [address] Referral ID Status Reason Start Date Expiration Date Visits Requested Visits Authorized [id number] Closed by system - Referral Evaluate and Treat 3 02/18/2014 1 1 Encounter Details Date Type Department Care Team (Latest Contact Info) Description 08/20/2013 12:58 PM EDT - 08/22/2013 3:38 PM EDT Hospital Encounter Inter[place] [id number] Asad Biggs MD [facility] [address] [place] [address] Sarthak Pollard MD [facility] [address] Chest pain; Coronary artery disease; ACS (acute [...] appointments: -During 8am-5pm Wednesday through Wednesday call [phone] to speak with a nurse in the cardiology clinic -All other times call [phone] and ask to speak to the tie man service station operator. Return to work/ usual actvities: 1 week, as tolerated. No squatting or lifting more than 10 pounds until then. Driving: No driving for 48 hours after catheterization. Follow up Appointments: PCP: PATRIC AL MD at [phone] to see you on WednesdayAugust 28 at 10:50 am. Vault Mechanic, Dr. Oseguera, to see you on 09/20/14 at noon. Please call [phone] with questions. Diabetes medication instructions You should [...] * CHEST PAIN (ANGINA): AFTER YOUR VISIT (NIGERIEN) * CORONARY ARTERY DISEASE: AFTER YOUR VISIT (NIGERIEN) * DIABETES DIET GUIDELINES: AFTER YOUR VISIT (NIGERIEN) * HEART ATTACK: AFTER YOUR VISIT (NIGERIEN) * HEMOGLOBIN A1C: ABOUT THIS TEST (NIGERIEN) * HOME BLOOD GLUCOSE TEST: ABOUT THIS TEST (NIGERIEN) * CARDIAC CATHETERIZATION: AFTER YOUR VISIT (NIGERIEN) documented in this encounter Medications at Time [...] Patient is a 38 y/o man from [place], [place]. He is disabled and on Social [...] Office of Care Management (OCM) / Clinical Inclusion Internship (CRC)/ Initial Assessment Discussed patient with Provider Team and in multidisciplinary discharge-planning rounds. Reviewed record and interviewed patient. Introduced/reviewed CRC role and services accepted. REASON for HOSPITALIZATION: NSTEMI (non-ST elevated myocardial infarction) S/p PCI PMH Please see H+P for detailed history. PMH includes HTN, Hyperlipedemia, depression, narcolepsy PREVIOUS FUNCTIONAL STATUS: Pt states that he has been on disability SSD for 3 yrs due to his Narcolepsy. Independent in his ADL's. He states he is still able to drive with medication. No assistive devices SLATE TRIMMER. CURRENT FUNCTIONAL STATUS: same SOCIAL / FAMILY [...] D for prescriptions. Uses [facility] CURRENT HOME/COMMUNITY SERVICES/EQUIPMENT: None STITCH SEPARATOR REFERRAL: Notified STITCH SEPARATOR, Alexandru Casas regarding pt's [place]. Pt's [place] Medicaid is not active per Alexandru SALCEDO. PRIMARY CARE PHYSICIAN: PATRIC AL MD ALEJANDRA [phone] [facility] [id number] POTENTIAL DISCHARGE NEEDS: None identified at this [...] while hospitalized. Awaiting Endocrine consult. Calista Jaimes BODY SHOP MANAGER CRC/Jaye Dennison MSN BSN RN CRC Office of Care Managment Pager [phone] . * Padma Marquez I, RD - 08/22/2013 11:42 AM EDT Nutrition Services Education Note Diet Rx: [facility]/Low Fat Patient Active Problem [...] Weight loss options discussed Phase II Referral: [facility] Activity Summary: By discharge, patient will be [...] up with PCP or Dr Bird in [place] I reviewed the patient with and agree with the recommendations and plans * Sarthak Pollard MD - 08/22/2013 7:18 AM EDT Inpatient Cardiology Progress Note Patient Name: Lux Dixon JrFlorencio Service: EQUIPMENT OPERATOR WAREHOUSE / PA Responsible Attending: Dr Pollard Reason for continued hospitalization: Evaluation and management of NSTEMI S/p cardiac catheterization, PCI of LCX, being seen by Cardiac Rehabilitation [facility] 10, Endocrine consulted Active Problems: [...] 2v CABG and recurrent angina, +NSTEMI pending [facility]. Stable. Plan: 1. CAD/ CABGx2, stable [...] discussed with Dr. Pollard. JUSTIN OROSCO Pager [phone] 08/22/2013 Cardiology Attending Note: I interviewed and [...] 35 mins. Sarthak Pollard MD, MS Staff Vault Mechanic Pager [phone] * Latonya Sanders - 08/21/2013 10:28 PM [...] pulses are palpable. Latonya Sanders MD # [id number] * Sarthak Pollard MD - 08/21/2013 8:36 AM EDT Inpatient Cardiology Progress Note Patient Name: Lux Dixon Jr. Service: EQUIPMENT OPERATOR WAREHOUSE / PA Responsible Attending: Dr Pollard Reason [...] mcg/min (08/21/13215) ??? heparin 2,150 Units/hr (08/21/13 0537) ??? sodium chloride 0.9% Stopped (08/20/13 1236) Physical Exam: Vital Signs: Last value Range [...] 2v CABG and recurrent angina, +NSTEMI pending [facility]. Plan: 1. CAD/ CABGx2, [facility] today Needs risk factors addressed Has [...] to his RPDA and occlusion of his [place] RCA since that time of his last [...] 35 mins. Sarthak Pollard MD, MS Staff Vault Mechanic Pager [phone] * Reny Kent RN - 08/20/2013 10:08 [...] between 00 and 0200. 0310) Patient alerted administrative staff supervisor that he is experiencing 3/10 left arm pain and a headache. [B/P 151/59]. Dr. Golden states to increase nitroglycerin gtt to 50mcg/min. Continue to monitor patient comfort. * Michelle Chong RN - 08/20/2013 3:00 PM EDT Complaining of 30/10 Chest Pain Radiating To Left arm Nitro Gtt Started Per 106/60 hr 69 nitro Stated At [facility]15 pain Level is 11/17 118/58 65 ekg ordered documented in this encounter H&P Notes * Eben Bingham MD - 08/20/2013 3:12 PM EDT Cardiology Admission H & P Patient Name: Lux Dixon Jr. MRN No - [id number] Date of - 1975 Age - 38 [...] CABG MARTINEZ-LAD, SVG-PDA and Obesity transferred from [facility] because of CP which started yesterday while [...] relieved after 1 shot of morphine at [place]. His work showed NSR ECG w/o ST changes, elevated 2nd set of trop and negative D-dimer, wbc of 15K, normal electrolytes, glucose of 546, normal BUN/cr. He was akpxp058 of plavix and started on heparin gtt. He had some CP on arrival to [facility] which was . ECG was normal. [...] CABG MARTINEZ-LAD, SVG-PDA in 2011 transferred from [place] because of CP which is different than his previous episode of CP. This time pain started in arm and radiating to chest and is also mild 1-. He also drove for 6 hrs yesterday. He had positive tropsat [place] although his ECG was negative. The pain relieved after leaning forward. I have above mentioned DD and also his d-dimer at [place] was negative so low prob of PE. I would admit for ACS and cont heparin. i would also keep him NPO and starting on nitro drip per Dr. Horvath's rec. Admit to telemetry Cycle bio-markers Repeat EKG Continue aspirin, simvastatin, metoprolol, plavix 300 mg x1 (given at [place]) and heparin Check fasting lipid profile and [...] was reviewed and signed. 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 Diabetes History: Lux Dixon Jr. [...] of SVG to RPDA and occlusion of [place] RCA. LVEDP 21. PCI of mid and [...] up with PCP or Dr Bird in [place] ??? Obesity Weight is 130.5 Kg [...] SVG-PDA in 2011 and obesity transferred from [facility] for chest pain which started the day [...] or vomiting. Hospital Course: On admission to [facility], he had CP on arrival to [facility] which was 1-01/15. ECG [...] occlusion of SVG to RPDA, occlusion of [place] RCA. The SVG to RCA was not [...] up with PCP or Dr Bird in [place] Smoking cessation was advised & discussed. [...] appointments: -During 8am-5pm Wednesday through Wednesday call [phone] to speak with a nurse in the cardiology clinic -All other times call [phone] and ask to speak to the tie man service station operator. Return to work/ usual actvities: 1 week, as tolerated. No squatting or lifting more than 10 pounds until then. Driving: No driving for 48 hours after catheterization. Follow up Appointments: PCP: PATRIC AL MD at [phone] to see you on WednesdayAugust 28 at 10:50 am. Vault Mechanic, Dr. Oseguera, to see you on 09/20/14 at noon. Please call [phone] with questions. Diabetes medication instructions You should [...] Complete By Expires Referral to Cardiac Rehab [[id number] Custom] Process Instructions: If no progress note charted, please enter Clinical details in comments. Scheduling Instructions: Comments: Pt will participate in cardiac rehab @ [facility] Questions: Responses: Reason for referral NSTEMI Provider Contact Information: JALEN Billingsley NP Dr Bruce Andrus [phone] Discharge References/Attachments: Discharge References/Attachments CHEST PAIN (ANGINA): AFTER YOUR VISIT (NIGERIEN) CORONARY ARTERY DISEASE: AFTER YOUR VISIT (NIGERIEN) DIABETES DIET GUIDELINES: AFTER YOUR VISIT (NIGERIEN) HEART ATTACK: AFTER YOUR VISIT (NIGERIEN) HEMOGLOBIN A1C: ABOUT THIS TEST (NIGERIEN) HOME BLOOD GLUCOSE TEST: ABOUT THIS TEST (NIGERIEN) Signed: JUSTIN OROSCO Pager [phone] DATE: 08/22/2013 * Miscellaneous - Provider, Scanning - 08/20/2013 2:59 PM EDT * Miscellaneous - Provider, Scanning - 08/20/2013 2:58 PM EDT documented in this encounter Plan of Treatment Upcoming Encounters Date Type Department Care Team (Late st Contact Info) Description 10/23/2024 1:00 PM EST Appointment XRay at [address] [place] [place] [phone] Isabela Hayward, [facility] INFECTIOUS DISE[facility] [place] [phone] 11/09/2024 1:30 PM EST Office [place] [phone] Isabela Hayward, [facility]FECT[facility] [place] [address] 11/10/2024 10:00 AM EST Office [place] [phone] Dai Whitman, FURNITURE SANDER 11/21/2024 2:15 PM EST Office [place] [phone] Dayanara Grover MD [facility] ENDOCR[facility]Y [place] [address] Scheduled Orders Name Type Priority Associated Diagnoses Orde r Schedule EKG 12 Lead ECG STAT Chest pain One Time for 1 Occurrences starting 08/20/2013 until 08/20/2013 Scheduled Referrals Name Type Priority Associated Diagnoses Orde r Schedule Referral to Cardiac Rehab Outpatient Referral Routine NSTEMI (non-ST elevated myocardial infarction) Ordered: 08/22/2013 documented as of this encounter Procedures Procedure Name Priority Date/Time Associated Diagnosis Comments TURKEY PICKER SCAN 08/24/2013 11:52 AM EDT POCT GLUCOSE Routine 08/22/2013 11:52 AM EDT POCT GLUCOSE Routine 08/22/2013 7:47 AM EDT EKG 12-LEAD Routine 08/22/2013 7:45 AM EDT Chest pain BMP W/FASTING GLUCOSE Routine 08/22/2013 4:03 AM EDT DIFFERENTIAL, AUTOMATED Routine 08/22/20 4:03 AM EDT CARDIAC ENZYMES ([facility]P) Routine 08/22/2013 4:03 AM EDT CBC (WITH DIFF) Routine 08/22/2013 4:03 AM EDT POCT GLUCOSE Routine 08/21/2013 10:43 PM EDT POCT GLUCOSE Routine 08/21/2013 8:28 PM EDT CARDIAC ENZYMES ([facility]) STAT 08/21/2013 6:36 PM [...] Routine 08/21/20 3:53 AM EDT CARDIAC ENZYMES ([facility]) Routine 08/21/2013 3:53 AM [...] 08/20/2013 11:51 PM EDT CARDIAC ENZYMES ([facility]) STAT 08/20/2013 9:40 PM [...] 08/20/2013 1: 45 PM EDT CARDIAC ENZYMES ([facility]P) Routine 08/20/2013 1:45 PM EDT APTT Routine 08/20/2013 1:45 PM EDT PROTHROMBIN TIME Routine 08/20/2013 1:45 PM EDT CBC (WITH DIFF) Routine 08/20/2013 1:45 PM EDT MAGNESIUM Routine 08/20/2013 1:45 PM EDT BASIC METABOLIC PANEL Routine 08/20/2013 1:45 PM EDT POCT GLUCOSE Routine 08/20/2013 1:23 PM EDT documented in this encounter Results * SCAN DOC: TURKEY PICKER (08/24/2013 11:52 AM EDT) Anatomical Region Laterality Modality Other Narrative 08/24/2013 12:55 PM EDT Procedure Note Provider, Scanning - 08/24/2013 11:52 AM EDT Scanning Provider MEDIA MGR SCAN EXT O RDR/RSLT * (ABNORMAL) POCT Glucose (08/22/2013 11:52 AM EDT) Glucose, POC 225(H) 60 - 199 mg/dL [facility] Comment: Supplemental ranges: <110 mg/dL before meals <200 mg/dL all other times of the day Blood specimen (specimen) 08/22/2013 11:52 AM EDT 08/22/2013 11:52 AM EDT Asad Biggs MD POINT OF CARE TEST O GILDA Performing Organization Address [facility] Co de Phone Number [facility] * POCT Glucose (08/22/2013 7:47 AM EDT) Glucose, POC 199 60 - 199 mg/dL [facility] Comment: Supplemental ranges: <110 mg/dL before meals <200 mg/dL all other times of the day Blood specimen (specimen) 08/22/2013 7:47 AM EDT 08/22/2013 7:47 AM EDT Asad Biggs MD POINT OF CARE TEST O GILDA Performing Organization Address [facility] de Phone Number [facility] * EKG 12 Lead (08/22/2013 7:45 AM EDT) Ventricular rate 79 BPM MUSE SYSTEM Atrial Rate 79 BPM MUSE SYSTEM P-R Interval 182 ms MUSE SYSTEM QRS Duration 108 ms MUSE SYSTEM Q-T Interval 406 ms MUSE SYSTEM QTC Calculated (Bezet) 465 ms MUSE SYSTEM Calculated P [place] 57 degrees MUSE SYSTEM Calculated R [place] 23 degrees MUSE SYSTEM Calculated T [place] 2 degrees MUSE SYSTEM INTERPRETATION Normal sinus rhythm Cannot rule out Inferior infarct , age undetermined When compared with ECG of 21-AUG-2013 14:53, Borderline criteria for Inferior infarct are now present Confirmed by aPblito Torres MD ([id number]) on 08/23/2013 10:09:45 AM [...] EDT Tim Uribe MD HEMATOLOGY ORDERAB LES CERNER MILLENNIUM * (ABNORMAL) BMP w/fasting Glucose (08/22/2013 4:03 AM EDT) [facility] Glucose Fasting 170(H) 65 - 99 mg/dL [...] supplied above were not validated at [facility]. Results from pediatric patients [...] MD CHEMISTRY ORDERABL ES Performing Organization Address [facility]/ZIP Co de Phone Number [facility] * (ABNORMAL) Cardiac Enzymes (08/22/2013 4:03 AM [...] Kinase 455(H) 0 - 200 unit/L [facility] Blood specimen (specimen) 08/22/2013 4:03 AM EDT 08/22/2013 4:42 AM EDT Narrative Resulting Agency Comment Spec In Lab Tim Uribe MD CHEMISTRY ORDERABL ES Performing Organization Address [facility]/ZIP Co de Phone Number [facility] * (ABNORMAL) CBC (with Diff) (08/22/2013 4:03 AM EDT) White Blood Cell 10.0 4.0 - 10.0 x10(3)/mc L [facility] Red Blood Cell 4.17(L) 4.63 - 6.08 x10(6)/mc L [facility] M[facility] Hemoglobin 12.7(L) 13.7 - 17.5 gm/dL [facility] MILLENNIUM Hematocrit 37.7(L) 40.0 - 51.0 % CERNER MILLENNIUM Mean Cell Volume 90.4 79.0 - 92.0 fL [facility] Mean Cell Hemoglobin 30.5 25.6 - 32.2 pg [facility] Mean Cell Hemoglobin Concentration 33.7 32.0 - 36.5 gm/dL [facility] MILLENNIUM Platelet 201 145 - 370 x10(3)/mc L [facility] MILL[facility] RDW Standard Deviation 40.4 35.0 - 46.0 fL [facility] MILL[facility]NIUM RDW coefficient of variation 12.4 10.9 - 14.4 % CERNER MILLENNIUM Mean Platelet Volume 11.2 9.0 - 12.0 fL [facility] Blood specimen (specimen) 08/22/2013 4:03 AM EDT 08/22/2013 4:42 AM EDT Narrative Resulting Agency Comment Spec In Lab Tim Uribe MD HEMATOLOGY ORDERAB LES Performing Organization Address City/[facility]/ZIP Co de Phone Number [facility] * POCT Glucose (08/21/2013 10:43 PM EDT) Pathologist [facility] Glucose, POC 193 60 - 199 mg/dL [facility] Comment: Supplemental ranges: <110 mg/dL before meals <200 mg/dL all other times of the day Blood specimen (specimen) 08/21/2013 10:43 PM EDT 08/21/2013 10:43 PM EDT Asad Biggs MD POINT OF CARE TEST O RDERABLES [facility] * (ABNORMAL) POCT Glucose (08/21/2013 8:28 PM EDT) Glucose, POC 259(H) 60 - 199 mg/dL [facility] Comment: Supplemental ranges: <110 mg/dL before meals <200 mg/dL all other times of the day Blood specimen (specimen) 08/21/2013 8:28 PM EDT 08/21/2013 8:28 PM EDT Asad Biggs MD POINT OF CARE TEST O RDERABLES Performing Organization Address [facility]/ZIP Co de Phone Number [facility] * (ABNORMAL) Cardiac Enzymes (08/21/2013 6:36 PM EDT) Troponin-T 0.93(H) <=0.03 ng/mL [facility] Comment: 0.03 ng/mL: Represents the [...] Creatine Kinase 594(H) 0 - 200 unit/L [facility] Blood specimen (specimen) 08/21/2013 6:36 PM EDT 08/21/2013 6:47 PM EDT Narrative Resulting Agency Comment Spec In Lab Sarthak Pollard MD CHEMISTRY ORDERABLES Performing Organization Address [facility]/ZIP Co de Phone Number [facility] OMAR * POCT Glucose (08/21/2013 4:25 PM EDT) Glucose, POC 138 60 - 199 mg/dL [facility] Comment: Supplemental ranges: <110 mg/dL before meals <200 mg/dL all other times of the day Blood specimen (specimen) 08/21/2013 4:25 PM EDT 08/21/2013 4:25 PM EDT Asad Biggs MD POINT OF CARE TEST O RDERABLES Performing Organization Address [facility] de Phone Number [facility] * EKG 12 Lead (08/21/2013 2:53 PM EDT) [facility] Ventricular rate 75 BPM MUSE SYSTEM Atrial Rate 75 BPM MUSE SYSTEM P-R Interval 172 ms MUSE SYSTEM QRS Duration 106 ms MUSE SYSTEM Q-T Interval 388 ms MUSE SYSTEM QTC Calculated (Bezet) 433 ms MUSE SYSTEM Calculated P [place] 11 degrees MUSE SYSTEM Calculated R [place] 35 degrees MUSE SYSTEM Calculated T [place] 1 degrees MUSE SYSTEM INTERPRETATION Normal sinus rhythm Normal ECG When compared with ECG of 21-AUG-2013 02:54, No significant change was found Confirmed by Brian DE Pablito ([id number]) on 08/22/2013 3:01:48 PM MUSE SYSTEM 08/21/2013 2:53 PM EDT 08/22/2013 3:01 PM EDT Tim Uribe MD ECG ORDERABLES Performing Organization Address [facility] de Phone Number MUSE SYSTEM * Cardiac Catheterization (08/21/2013 2:38 PM EDT) Anatomical Region Laterality Modality Other Narrative 08/21/2013 7:29 PM EDT Procedure Note Provider, Scanning - 08/21/2013 3:30 PM EDT Asad Biggs MD CARDIAC CATH ORDERAB LES * (ABNORMAL) POCT Glucose (08/21/2013 11:37 AM EDT) Glucose, POC 200(H) 60 - 199 mg/dL [facility] Comment: Supplemental ranges: <110 mg/dL before meals <200 mg/dL all other times of the day Blood specimen (specimen) 08/21/2013 11:37 AM EDT 08/21/2013 11:37 AM EDT Asad Biggs MD POINT OF CARE TEST O RDERABLES Performing Organization Address [facility]/ZIP Co de Phone Number [facility] * (ABNORMAL) APTT (08/21/2013 11:09 AM EDT) Partial Thromboplastin Time 63(H) 25 - 35 sec [facility] Comment: Recommended therapeutic PTT range for full dose unfractionated heparin is 80-114 seconds. Blood specimen (specimen) 08/21/2013 11:09 AM EDT 08/21/2013 11:42 AM EDT Narrative Resulting Agency Comment Spec In Lab Asad Biggs MD HEMATOLOGY ORDERABLE S Performing Organization Address [facility] Co de Phone Number [facility] * Echocardiogram Transthoracic(Leb) (08/21/2013 9:16 AM EDT) EF 65 HEARTLAB SYSTEM Anatomical Region Laterality Modality Other 08/21/2013 Narrative 08/21/2013 9:51 AM EDT Procedure: ? Transthoracic Echocardiogram Patient: ? QUIANA AUSTIN P ?(Age): 1975(38) Med Rec#: ?[id number] ? Sex: ?M ? Site Loc: ?[facility] ? Ht / Wt: ??180(cm)/127(kg) Pt. Loc: ? Adult Floor ?BSA: ?2.52 Study Date: ?08/21/2013 ? Pt. Type: Inpatient Tape: ? Referring: Eben Bingham Referring: AKANKSHA CAI Senior Java Engineer: Patric Blunt [facility] Interpreting Fellow: Luca Wilson ([id number]) Diagnosis: ??Chest pain (786.50) CPT Code(s): ??Echo Full (45428), ??Spectral Doppler (39335), ??Color Doppler (41081), Indication(s): ??Chest Pain Rhythm: HR ?BP ?121/62 [...] ? Mid-Inferior ?Normal ? Mid-Inferoseptal ?Normal ? [place]-Septal ? Normal ? [place]-Anterior ? Normal ? [place]-Lateral ?Normal ? [place]-Inferior ? Normal ? [place]-Tip ?Normal ? Chambers ?Value ?Units (Range) ? [...] 08/21/2013 09:50:27 Images reviewed and interpretation verified [facility] Cardiac Ultrasound Laboratory Resulting Agency Comment 1X Procedure Note Umair Brock MD - 08/21/2013 Procedure: Transthoracic Echocardiogram Patient: QUIANA Llanos (Age): 1975(38) Med Rec#: [id number] Sex: M Site Loc: [facility] Ht / Wt: 180(cm)/127(kg) Pt. Loc: Adult Floor BSA: 2.52 Study Date: 08/21/2013 Pt. Type: Inpatient Tape: Referring: Eben Bingham Referring: AKANKSHA CAI Senior Java Engineer: Patric Blunt [facility] Interpreting Fellow: Luca Wilson ([id number]) Diagnosis: Chest pain (786.50) CPT Code(s): Echo Full (64794), Spectral Doppler (62364), Color Doppler (90986), Indication(s): Chest Pain Rhythm: HR BP 121/62 [...] Normal Mid-Posterolateral Normal Mid-Inferior Normal Mid-Inferoseptal Normal [place]-Septal Normal [place]-Anterior Normal [place]-Lateral Normal [place]-Inferior Normal [place]-Tip Normal Chambers Value Units (Range) LV EF [...] 08/21/2013 09:50:27 Images reviewed and interpretation verified [facility] Cardiac Ultrasound Laboratory Eben Ruiz MD ECHO ORDERABLES * (ABNORMAL) POCT Glucose (08/21/2013 8:33 AM EDT) Glucose, POC 202(H) 60 - 199 mg/dL [facility] Comment: Supplemental ranges: <110 mg/dL before meals <200 mg/dL all other times of the day Blood specimen (specimen) 08/21/2013 8:33 AM EDT 08/21/2013 8:33 AM EDT Asad Biggs MD POINT OF CARE TEST O RDERABLES [facility] * (ABNORMAL) APTT (08/21/2013 3:53 AM EDT) Partial Thromboplastin Time 61(H) 25 - 35 sec [facility] Comment: Recommended therapeutic PTT range for full dose unfractionated heparin is 80-114 seconds. Blood specimen (specimen) 08/21/2013 3:53 AM EDT 08/21/2013 4:00 AM EDT Narrative Resulting Agency Comment Spec In Lab Eben Ruiz MD HEMATOLOGY ORDERABLE S [facility]ILL[facility] * (ABNORMAL) Differential, Automated (08/21/2013 [...] EDT Eben Ruiz MD HEMATOLOGY ORDERABLE S [facility]ER [facility]ILL[facility] * (ABNORMAL) Cardiac Enzymes (08/21/2013 3:53 AM EDT) Pathologist [facility] Troponin-T 1.06(H) <=0.03 ng/mL [facility] Comment: 0.03 ng/mL: Represents the [...] Creatine Kinase 777(H) 0 - 200 unit/L [facility] Blood specimen (specimen) 08/21/2013 3:53 AM EDT 08/21/2013 4:00 AM EDT Narrative Resulting Agency Comment Spec In Lab Eben Ruiz MD CHEMISTRY ORDERABLES [facility] * (ABNORMAL) BMP w/fasting Glucose (08/21/2013 3:53 AM EDT) [facility] Glucose Fasting 230(H) 65 - 99 mg/dL [facility] Comment: ?Fasting* Glucose Interpretive Criteria Normal [...] supplied above were not validated at [facility]. Results from pediatric patients [...] In Lab Eben Ruiz MD CHEMISTRY ORDERABLES [facility] O[employer]YARYIUM * (ABNORMAL) CBC (with Diff) (08/21/2013 3:53 [...] MD HEMATOLOGY ORDERABLE S CERBRIAN CERDAIUM * Prothrombin Time (08/21/2013 3:53 AM EDT) Prothrombin Time 13.5 12.0 - 15.0 sec CERNER MILLENNIUM Comment: [facility] Transfusion Committee Guidelines: INR less than 2.0, PTT less than OR equal to 43.5 seconds, or Fibrinogen greater than or equal to 100 mg/dl indicate adequate procoagulant activity for hemostasis in patients without underlying bleeding disorders. International Normalization Ratio 1.0 0.9 - 1.1 CERNER MILLENNIUM Blood specimen (specimen) 08/21/2013 3:53 AM EDT 08/21/2013 4:00 AM EDT Narrative Resulting Agency Comment Spec In Lab Asad Biggs MD HEMATOLOGY ORDERABLE S Performing Organization Address [facility]/ZIP Co de Phone Number [facility] * (ABNORMAL) Triglyceride (08/21/2013 3:53 AM EDT) Triglyceride 733(H) <=149 mg/dL CERNER [facility] Comment: Reference Range: Normal triglycerides: ??<150 mg/dL Borderline high: ??150-199 mg/dL High: ??200-499 mg/dL Very high: ??>ed=439 mg/dL ELISEO 2001; 285(19):7065-1520 Blood specimen (specimen) 08/21/2013 3:53 AM EDT 08/21/2013 4:00 AM EDT Narrative Resulting Agency Comment Spec In Lab Eben Ruiz MD CHEMISTRY ORDERABLES Performing Organization Address [facility] Co de Phone Number ARIAN NELSON * (ABNORMAL) HDL/Cholesterol Profile (08/21/2013 3:53 AM EDT) Cholesterol, Total 218(H) <=199 mg/dL [facility] Comment: Recommendations of the NCEP Adult Treatment Panel for the following risk cutoff thresholds for the [place] population: Desirable: <200 mg/dL Borderline High: 200-239 mg/dL High: > or = 240 mg/dL HDL Cholesterol 24(L) >=40 mg/dL CER NER MILLENNIUM Comment: Reference range: ??Low HDL: ?? < 40 mg/dL ??Normal: ?40-60 mg/dL ??Desirable: > 60 mg/dL ELISEO 2001; 285(19):5991-1487 Cholesterol/HDL Ratio 9.1 ratio [facility] Comment: A Cholesterol to HDL ratio below [...] Ruiz MD CHEMISTRY ORDERABLES Performing Organization Address [facility] de Phone Number [facility] * (ABNORMAL) LDL Cholesterol, Direct (08/21/2013 3:53 AM EDT) LDL Cholesterol, Direct 107(H) <=99 mg/dL [facility] Comment: The National Cholesterol Education Program (NCEP) has set the following guidelines for LDL Cholesterol: Reference range: ?? Optimal: ?<100 mg/dL ?? Near Optimal/Above Optimal: ?? 100-129 mg/dL ?? Borderline high: ?130-159 mg/dL ?? High: ? 160-189 mg/dL ?? Very high: ?>ao=512 mg/dL ELISEO 2001: 285(19):9310-0148 Blood specimen (specimen) 08/21/2013 3:53 AM EDT 08/21/2013 4:00 AM EDT Narrative Resulting Agency Comment Spec In Lab Eben Ruiz MD CHEMISTRY ORDERABLES Performing Organization Address [facility] Co de Phone Number [facility] * (ABNORMAL) Hemoglobin A1c (08/21/2013 3:53 AM EDT) Hemoglobin A1c 10.0(H) 4.3 - 6.1 % [facility] Comment: The [place] Diabetes Association (ADA) has stated that HbA1c [...] 2013:36;suppl 1:S11-S66. Estimated Average Glucose 240 mg/dL [facility] Comment: eAG equivalents for HbA1c percentages: [...] into estimated average glucose values. ??Diabetes Care 2008:31(8):7548-0454. Blood specimen (specimen) 08/21/2013 3:53 AM EDT 08/21/2013 4:00 AM EDT Narrative Resulting Agency Comment Spec In Lab Eben Ruiz MD CHEMISTRY ORDERABLES Performing Organization Address City/State/[facility] Co de Phone Number [facility] * EKG 12 Lead (08/21/2013 2:54 AM EDT) Ventricular rate 68 BPM MUSE SYSTEM Atrial Rate 68 BPM MUSE SYSTEM P-R Interval 188 ms MUSE SYSTEM QRS Duration 104 ms MUSE SYSTEM Q-T Interval 406 ms MUSE SYSTEM QTC Calculated (Bezet) 431 ms MUSE SYSTEM Calculated P [place] 4 degrees MUSE SYSTEM Calculated R [place] 28 degrees MUSE SYSTEM Calculated T [place] 21 degrees MUSE SYSTEM INTERPRETATION Normal sinus rhythm Nonspecific T wave abnormality Abnormal ECG When compared with ECG of 20-AUG-2013 15:19, No significant change was found Confirmed by Pablito Torres MD ([id number]) on 08/21/2013 12:56:35 PM MUSE SYSTEM 08/21/2013 2:54 AM EDT 08/21/2013 12:56 PM EDT Eben Ruiz MD ECG ORDERABLES Performing Organization Address [facility] Phone Number MUSE SYSTEM * (ABNORMAL) POCT Glucose (08/21/2013 1:59 AM EDT) Glucose, POC 262(H) 60 - 199 mg/dL [facility] Comment: Supplemental ranges: <110 mg/dL before meals <200 mg/dL all other times of the day Blood specimen (specimen) 08/21/2013 1:59 AM EDT 08/21/2013 1:59 AM EDT Asad Biggs MD POINT OF CARE TEST O RDTYESHA Performing Organization Address [facility] Phone Number [facility] * (ABNORMAL) POCT Glucose (08/20/2013 11:54 PM EDT) Glucose, POC 290(H) 60 - 199 mg/dL [facility] Comment: Supplemental ranges: <110 mg/dL before meals <200 mg/dL all other times of the day Blood specimen (specimen) 08/20/2013 11:54 PM EDT 08/20/2013 11:54 PM EDT Asad Biggs MD POINT OF CARE TEST O RDERABLES Performing Organization Address [facility] Co de Phone Number ARIAN NELSON * APTT (08/20/2013 11:51 PM EDT) Partial Thromboplastin Time 35 25 - 35 sec [facility] Comment: Recommended therapeutic PTT range for full dose unfractionated heparin is 80-114 seconds. Blood specimen (specimen) 08/20/2013 11:51 PM EDT 08/21/2013 12:01 AM EDT Narrative Resulting Agency Comment Spec In Lab Asad Biggs MD HEMATOLOGY ORDERABLE S Performing Organization Address [facility] de Phone Number ARIAN NELSON * (ABNORMAL) Cardiac Enzymes (08/20/2013 9:40 PM EDT) Troponin-T 0.74(H) <=0.03 ng/mL [facility] Comment: 0.03 ng/mL: Represents the [...] Creatine Kinase 828(H) 0 - 200 unit/L [facility] Blood specimen (specimen) 08/20/2013 9:40 PM EDT 08/20/2013 9:47 PM EDT Narrative Resulting Agency Comment Spec In Lab Eben Ruiz MD CHEMISTRY ORDERABLES Performing Organization Address [facility] Co de Phone Number ARIAN NELSON * [...] Glucose, POC 200(H) 60 - 199 mg/dL [facility] Comment: Supplemental ranges: <110 mg/dL before meals <200 mg/dL all other times of the day Blood specimen (specimen) 08/20/2013 8:26 PM EDT 08/20/2013 8:26 PM EDT Asad Biggs MD POINT OF CARE TEST O RDERABLES [facility] * (ABNORMAL) POCT Glucose (08/20/2013 5:03 PM EDT) Glucose, POC 230(H) 60 - 199 mg/dL CERNER MILLENNIUM Comment: Supplemental ranges: <110 mg/dL before meals <200 mg/dL all other times of the day Blood specimen (specimen) 08/20/2013 5:03 PM EDT 08/20/2013 5:03 PM EDT Asad Biggs MD POINT OF CARE TEST O RDERABLES Performing Organization Address [facility] Co de Phone Number [facility] * EKG 12 Lead (08/20/2013 3:19 PM EDT) Ventricular rate 68 BPM MUSE SYSTEM Atrial Rate 68 BPM MUSE SYSTEM P-R Interval 182 ms MUSE SYSTEM QRS Duration 100 ms MUSE SYSTEM Q-T Interval 410 ms MUSE SYSTEM QTC Calculated (Bezet) 435 ms MUSE SYSTEM Calculated P [place] 3 degrees MUSE SYSTEM Calculated R [place] 19 degrees MUSE SYSTEM Calculated T [place] 35 degrees MUSE SYSTEM INTERPRETATION Normal sinus [...] Biggs MD ECG ORDERABLES Performing Organization Address [facility] Co de Phone Number MUSE SYSTEM * [...] Absolute 0.04 0.00 - 0.05 x10(3)/mc L [facility] PRASHANTIUM Blood specimen (specimen) 08/20/2013 1:45 PM EDT 08/20/2013 1:45 PM EDT Asad Biggs MD HEMATOLOGY ORDERABLE S [facility] * Magnesium (08/20/2013 1:45 PM EDT) Pathologist [facility] Magnesium 0.74 0.69 - 1.07 mmol/L [facility] N[facility] Blood specimen (specimen) 08/20/2013 1:45 PM EDT 08/20/2013 1:54 PM EDT Narrative Resulting Agency Comment Spec In Lab Asad Biggs MD CHEMISTRY ORDERABLES [facility] * (ABNORMAL) Cardiac Enzymes (08/20/2013 1:45 PM EDT) Troponin-T 0.34(H) <=0.03 ng/mL [facility] Comment: 0.03 ng/mL: Represents the 99th percentile [...] In Lab Asad Biggs MD CHEMISTRY ORDERABLES [facility] [employer] * (ABNORMAL) Basic Metabolic Panel (non-fasting) (08/20/2013 1:45 PM EDT) [facility] Glucose 246(H) 60 - 199 mg/dL CERNER MILLENNIUM Comment:Diabetes: >=200 mg/d L plus symptoms Blood Urea Nitrogen 15 10 - 20 mg/dL CERNER MILLENNIUM Creatinine 0.68(L) 0.80 - 1.50 mg/dL CERNER MILLENNIUM Comment: Please note that the pediatric reference intervals supplied above were not validated at [facility]. Results from pediatric patients [...] Biggs MD CHEMISTRY ORDERABLES Performing Organization Address [facility] Co de Phone Number [facility] * (ABNORMAL) APTT (08/20/2013 1:45 PM EDT) Partial Thromboplastin Time 40(H) 25 - 35 sec CERNER MILLENNIUM Comment: Recommended therapeutic PTT range for full dose unfractionated heparin is 80-114 seconds. Blood specimen (specimen) 08/20/2013 1:45 PM EDT 08/20/2013 1:45 PM EDT Narrative Resulting Agency Comment Spec In Lab Asad Biggs MD HEMATOLOGY ORDERABLE S Performing Organization Address [facility] Co de Phone Number ARIAN CERDAIUM * Prothrombin Time (08/20/2013 1:45 PM EDT) Prothrombin Time 13.7 12.0 - 15.0 sec CERNER MILLENNIUM Comment: [facility] Transfusion Committee Guidelines: [...] MD HEMATOLOGY ORDERABLE S Performing Organization Address [facility] Phone Number ARIAN NELSON * D-Dimer, Quantitative (08/20/2013 1:45 PM EDT) Pathologist [facility] D-Dimer <200 0 - 500 FEU ng/ml CERNER MILLENNIUM Comment: The D-Dimer assay is used [...] MD HEMATOLOGY ORDERABLE S Performing Organization Address [facility] Phone Number ARIAN NELSON * (ABNORMAL) CBC (with Diff) (08/20/2013 1:45 PM EDT) Pathologist [facility] White Blood Cell 12.2(H) 4.0 - 10.0 [...] Hemoglobin Concentration 34.8 32.0 - 36.5 gm/dL ARIAN CERDAIUM Platelet 247 145 - 370 x10(3)/mc L ARIAN CERDAIUM RDW Standard Deviation 39.1 35.0 - 46.0 fL ARIAN CERDAIUM RDW coefficient of variation 12.3 10.9 - 14.4 % ARIAN CERDAIUM Mean Platelet Volume 11.4 9.0 - 12.0 fL ARIAN CERDAIUM Blood specimen (specimen) 08/20/2013 1:45 PM EDT 08/20/2013 1:45 PM EDT Narrative Resulting Agency Comment Spec In Lab Asad Biggs MD HEMATOLOGY ORDERABLE S Performing Organization Address [facility] Co de Phone Number ARIAN CERDAIUM * Lavender Tube HOLD (08/20/2013 1:45 PM EDT) Lavender Hold Sample in lab. ARIAN NELSON Blood specimen (specimen) 08/20/2013 1:45 PM EDT 08/20/2013 1:45 PM EDT Asad Biggs MD HEMATOLOGY ORDERABLE S Performing Organization Address [facility] de Phone Number ARIAN NELSON * Blue Tube HOLD (08/20/2013 1:45 PM EDT) Blue Hold Sample in lab. ARIAN NELSON Blood specimen (specimen) 08/20/2013 1:45 PM EDT 08/20/2013 1:45 PM EDT Asad Biggs MD HEMATOLOGY ORDERABLE S ARIAN CERDAIUM * Green Tube HOLD (08/20/2013 1:45 PM EDT) Green Hold Sample in lab. ARIAN CERDAIUM Blood specimen (specimen) 08/20/2013 1:45 PM EDT 08/20/2013 1:45 PM EDT Asad Biggs MD CHEMISTRY ORDERABLES Performing Organization Address City/[facility]/ZIP Co de Phone Number ARIAN NELSON * (ABNORMAL) POCT Glucose (08/20/2013 1:23 PM EDT) Glucose, POC 243(H) 60 - 199 mg/dL ARIAN NELSON Comment: Supplemental ranges: <110 mg/dL before meals <200 mg/dL all other times of the day Blood specimen (specimen) 08/20/2013 1:23 PM EDT 08/20/2013 1:23 PM EDT Asad Biggs MD POINT OF CARE TEST O RDERABLES Performing Organization Address [facility] Co de Phone Number ARIAN NELSON documented in this encounter Visit Diagnoses Diagnosis NSTEMI (non-ST elevated myocardial infarction)- Primary Acute myocardial infarction, subendocardial infarction, episode of care unspecified Chest pain Chest pain, unspecified Coronary artery disease Coronary atherosclerosis of unspecified type of vessel, [place] or graft ACS (acute coronary syndrome) Intermediate coronary syndrome SOB (shortness of breath) Shortness of breath NSTEMI (non-ST elevated myocardial infarction) Acute myocardial infarction, subendocardial infarction, episode of care unspecified HTN (hypertension) Unspecified essential hypertension Hyperlipidemia Other and unspecified hyperlipidemia 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 (SVG to PDA closed 08/2013) Coronary atherosclerosis of unspecified type of vessel, [place] or graft Diabetes mellitus Type II or [...] 81 mg, Oral, DAILY, First dose on 08/20/13 at 1545, Until [...] 145 sec X 2 - call housekeeper cleaning cooking See Bolus dosing guidance for aPTT values [...] having echo)1203 (Given - Provider: Lola Tipton, DAVID)1627 (Not Given - Provider: Lola Tipton RN [...] (PLAVIX) who require a proton pump inhibitor 191 (Given - Provider: Lola Titpon RN) 0858 (Given - Provider: Roxanna Mcallister) potassium chloride (K-DUR/KLOR-CON) extended release tablet 40 mEq (COMPLETED) 40 mEq, Oral, ONCE, 1 dose, On Wed08/22/13 at 0745, STAT 0858 (Given - Provid er: Roxanna Mcallister) sertraline (ZOLOFT) tablet 50 mg (CANCELED) 50 mg, Oral, DAILY, First dose on 08/20/13 at 1700, Until Discontinued, Routine 183 (Given - Provider: Sana Bella RN) 0900 (Given - Provider: Lola Tipton RN) 0859 (Given - Provider: Roxanna Mcallister) simvastatin (ZOCOR) tablet 20 mg (CANCELED) 20 mg, Oral, EVERY EVENING, First dose on 08/20/13 at 1700, Until Discontinued 183 (Given - [...] Discontinued, Routine 1530 (Given - Provider: Sana Bella, DAVID) 0345 (Not Given - Provider: Reny Kent [...] Procedure), Routine 0144 (Given - Provider: Reny Kent, DAVID)1400 (Not Given - Provider: Lola Tipton RN [...] 145 sec X 2 - call housekeeper cleaning cooking See Bolus dosing guidance for aPTT values [...] 08/20/13 at 1545, Until Wed08/21/13 at 1441 1556 [...] in sodium chloride 0.9% 50 mL infusion (BULLET SLUGS INSPECTOR) (CANCELED) CONTINUOUS PRN, Starting on Wed08/21/13 at [...] Routine documented in this encounter Care Teams Food Safety Manager Relationship Specialty Start Date End Date Patric Al MD PCP - General 12/29/11 02/26/19 documented as of this encounter
--- OUTSIDE RECORDS SUMMARY | 2024-10-20 12:53 | XMS_ITS | Encounter Summary ---
Author Organization [facility] Address [facility] [place] [address] Care Team Providers Care Banquet Stewardess Name Role Phone Guanako Gusman MD Primary Care Provider [phone] Reason for Visit * Reason Onset Date Comments Follow-up 01/18/2012 Called patient t o follow up on smoking cessation counseling done while he was inpatient. Encounter Details Date Type Department Care Team (Late st Contact Info) Description 01/18/2012 Telephone [place] [address] Vibha Martines APRN [facility] [place] [address] Follow-up (Called patient to follow up on [...] He wanted to continue to go Cold Pr[place]. We agreed that I would call him [...] 1:00 PM EST Appointment XRay at [address] [place] [address] Isabela Hayward APRN [facility] [place] [address] 11/09/2024 1:30 PM EST Office [place] [address] Isabela Hayward [employer] [facility] [place] [address] 11/10/2024 10:00 AM EST Office [place] [address] Dai Whitman APRN 11/21/2024 2:15 PM EST Office [place] [address] Dayanara Grover MD [facility] [place] [address] documented as of this encounter Visit Diagnoses Not on filedocumented in this encounter Care Teams Banquet Stewardess Relationship Specialty Start Date End Date Guanako Gusman MD PCP - General 12/29/11 02/26/19 documented as of this encounter
--- OUTSIDE RECORDS SUMMARY | 2024-10-20 12:53 | XMS_ITS | Encounter Summary ---
Author Organization [facility] Address [facility] [place] [address] Care Team Providers Care Shelf Drier Operator Name Role Phone Patric Al MD Primary Care Provider [phone] Reason for Visit * Reason Onset Date Comments Medication Refill 01/11/2012 Encounter Details Date Type Department Care Team (Late st Contact Info) Description 01/11/2012 Refill [place] [address] Zak Yoo III, PA [facility] [place] [address] Social History Tobacco Use Types Packs/Day Years [...] - 01/11/2012 4:59 PM EST TELEPHONE NOTE [id number] y.o. Date of call: 01/11/2012CABG X [...] he indicates that he is doing well. ZackLux Jr. Home Medication Instructions CRAIG: Printed on:01/11/12 8257 Medication Information HYDROmorphone (DILAUDID) 4 mg tablet [...] updated today. Signed: ZAK YOO III, PA-C [facility] Section of Cardiothoracic Surgery Date: 01/11/12 PATRIC AL MD documented in this encounter Plan of Treatment Upcoming Encounters Date Type Department Care Team (Late st Contact Info) Description 10/23/2024 1:00 PM EST Appointment XRay at [address] [place] [address] Isabela Hayward, [facility] [place] [address] 11/09/2024 1:30 PM EST Office Visit [place] [address] Isabela Hayward, [facility] [place] [address] 11/10/2024 10:00 AM EST Office Visit [place] [address] Dai Whitman APRN 11/21/2024 2:15 PM EST Office Visit [place] [phone] Dayanara Grover MD [facility] [place] [address] documented as of this encounter Visit Diagnoses Not on filedocumented in this encounter Care Teams Shelf Drier Operator Relationship Specialty Start Date End Date Patric Al MD PCP - General 12/29/11 02/26/19 documented as of this encounter
--- OUTSIDE RECORDS SUMMARY | 2024-10-20 12:53 | XMS_ITS | Encounter Summary ---
Author Organization [facility] Address [facility] [place] [address] Care Team Providers Care Singer Songwriter Name Role Phone Guanako Gusman MD Primary Care Provider [phone] Reason for Visit * Reason Comments Follow Up Surgery Encounter Details Date Type Department Care Team (Late st Contact Info) Description 03/08/2012 10:00 AM EDT Office Visit [place] [address] Inna Tovar MD [facility] [place] [address] S/P CABG (coronary artery bypass graft) (Primary [...] [facility] Outpatient prescriptions marked as taking [...] 1:00 PM EST Appointment XRay at [address] [place] [address] Isabela Hayward [facility] [place] [address] 11/09/2024 1:30 PM EST Office [place] [phone] Isabela Hayward COATING MACHINE HELPER [facility] [place] [address] 11/10/2024 10:00 AM EST Office Visit [place] [phone] Dai Whitman, COATING MACHINE HELPER 11/21/2024 2:15 PM EST Office [place] [address] Dayanara Grover MD [facility] [place] [address] documented as of this encounter Visit Diagnoses Diagnosis S/P CABG (coronary artery bypass graft)- Primary Postsurgical aortocoronary bypass status documented in this encounter Care Teams Singer Songwriter Relationship Specialty Start Date End Date Guanako Gusman MD PCP - General 12/29/11 02/26/19 documented as of this encounter
--- OUTSIDE RECORDS SUMMARY | 2024-10-20 12:53 | XMS_ITS | Encounter Summary ---
Author Organization [facility] Address [facility] [place] [address] Care Team Providers Care Welding Foreman Name Role Phone Guanako Gusman MD Primary Care Provider [phone] Encounter Details Date Type Department Care Team (Late st Contact Info) Description 01/26/2012 Orders Only [place] [address] Benjamin Lockwood PA [facility] DR [place] [address] Social History Tobacco Use Types Packs/Day Years [...] 10/23/2024 1:00 PM EST Appointment XRay at [address] [place] [address] Isabela Hayward, RESHMA [facility] [place] [address] 11/09/2024 1:30 PM EST Office [place] [phone] Isabela Hayward, J2EE JAVA DEVELOPER [facility] IN[place] [address] 11/10/2024 10:00 AM EST Office Visit Vascular Surgery at [place] [phone] Dai Whitman APRN 11/21/2024 2:15 PM EST Office Visit Endocrinology at [place] [phone] Dayanara Grover MD [facility] [place] [address] documented as of this encounter Visit Diagnoses Not on filedocumented in this encounter Care Teams Welding Foreman Relationship Specialty Start Date End Date Guanako Gusman MD PCP - General 12/29/11 02/26/19 documented as of this encounter
--- OUTSIDE RECORDS SUMMARY | 2024-10-20 12:53 | XMS_ITS | Encounter Summary ---
Author Organization Formerly [facility] Address [facility] [place] [address] Care Team Providers Care Lawyer Probate Name Role Phone Guanako Gusman MD Primary Care Provider [phone] Reason for Visit * Reason Onset Date Comments Sweats 01/16/2012 Encounter Details Date Type Department Care Team (Late st Contact Info) Description 01/16/2012 Telephone Cardiology at [address] [id number] Maninder Brennan MD [facility] [address] Swe[place] Social History Tobacco Use Types Packs/Day [...] HTN, hyperlipidemia, smoking, and narcolepsy [place] [facility] [place] that [place] been experiencing 'cold [...] 10/23/2024 1:00 PM EST Appointment XRay at [address] [place] [address] Isabela Hayward, [facility] [address] 11/09/2024 1:30 PM EST Office Visit Infectious Disease at [place] [phone] Isabela Hayward, [facility] [place] [address] 11/10/2024 10:00 AM EST Office [place] [address] Dai Whitman APRN 11/21/2024 2:15 PM EST Office [place] [address] Dayanara Grover MD [facility] [place] [address] documented as of this encounter Visit Diagnoses Not on filedocumented in this encounter Care Teams Lawyer Probate Relationship Specialty Start Date End Date Guanako Gusman MD PCP - General 12/29/11 02/26/19 documented as of this encounter
--- OUTSIDE RECORDS SUMMARY | 2024-10-20 12:54 | XMS_ITS | Encounter Summary ---
Author Organization Formerly [facility] Address [facility] Jean Marie britton [place] [id number] Care Team Providers Care Diesel Service Technician Name Role Phone Patric Al MD Primary Care Provider Reason for Referral * (Routine) - Closed by system - unspecified Specialty Diagnoses / Procedures Referred By William t Referred To Contact Diagnoses Chest pain Sarthak Pollard MD [facility] [place] [address] Referral ID Status Reason Start Date Expiration Date Visits Requested Visits Authorized [id number] Closed by system - unspecified Evaluate and Treat 01/08/2012 07/06/2012 1 1 Encounter Details Date Type Department Care Team (Latest Contact Info) Description 12/29/2011 8:26 PM EST - 01/08/2012 2:58 PM EST Hospital Encounter Intermediate [place] [address] Andi Rene MD [facility] [place] [address] Sarthak Pollard MD [facility] [place] [address] Inna Tovar MD [facility] [place] [address] Chest pain Discharge Disposition: Home with VNA [...] Discharge Instructions * Discharge Instructions* Darcie Lange, RESHMA - 01/08/2012 12:11 PM EST Geovanna Dixon . 1975 [id number] New Diagnosis of Pre-Diabetes For discharge should [...] Some considerations about using metformin in Prediabetics: [place] Diabetes Prevention Program (DPP) as well as other minor studies and meta-analyses has convincingly demonstrated the efficacy of metformin in this patient group [pre-diabetics]. In addition, results of the 10 year DPP follow up have recently been published, demonstrating the chcf safety and sustainability of metformin treatment benefits [...] - will be starting Cardiac rehab at [facility], encouraged to increase physical activity as advised by cardiologists Weight Loss - A 7% weight loss could significantly improve his BG control Tobacco cessation - There is growing evidence that cigarette smokers are more prone than the general population to develop T2DM. Increase in insulin resistance with tobacco use. Darcie Lange APRN [facility] Endocrinology Diabetes Management [phone] * Patient Instructions* Ricky Graham PA - [...] Anne Tovar and/or the Cardiothoracic Surgery Physician Tank Truck Driver Team may be reached at . Activity [...] Dr. Inna Tovar. You may use a [place] Track or treadmill but avoid any pulling [...] friends, go to a movie, go to alevism, etc. Heavy activities: No hunting, skiing, jogging, [...] would be to continue to go [place]. He has quit this way before and [...] only 10% of those who quit [place] are able to be successful. The calculated savings once he quits smoking would be $54 a week, $234 a month, and $2803 a year. If he quits now his savings will be $28,030 in 10 years. The patient was provided with a [facility] Smoking Cessation packet and the contents have been reviewed with him. The patient now has the Quit line number for [place] and has also been encouraged to use this ifneeded for support. In addition he was in agreement with a referral to the [place] Quitnetwork and a referral was faxed to [...] given to patient. Discharge summary faxed to [facility] and receipt confirmed via phone. Patient discharged [...] outpatient basis Equipment needs: none ADEBAYO MCGARRY, SUPERVISOR POWER REACTOR Pager: [phone] Physical Therapy Rehabilitation Department * Michelle Chong RN - 01/07/2012 1:22 PM EST Fleets enema given * Michelle Chong RN - 01/07/2012 12:54 PM EST No BM after supp. Prune juice offered But Pt refuses will continue with ambulation and po fluids * Bethany Bell, RN - 01/07/2012 12:18 PM EST Introduced [...] services. Patient would like VNA services through [facility]. PHONE: [phone] FAX: [phone]. Referral made via E-discharge. Please see home care orders that must be included in discharge summary for VN services to start. Patient has glucometer and supplies at bedside. Pt. Denies any further needs from CRC. Pt. Gets scripts through [place] Medicaid with co-pay. He denies any concerns related to co-pay. * Darcie Lange APRN - 01/07/2012 9:57 AM EST Geovanna Dixon . 1975 [id number] PATRIC AL MD Follow Up Diabetes Consult [...] Some considerations about using metformin in Prediabetics: [place] Diabetes Prevention Program (DPP) as well as other minor studies and meta-analyses has convincingly demonstrated the efficacy of metformin in this patient group [pre-diabetics]. In addition, results of the 10 year DPP follow up have recently been published, demonstrating the assistant terminal manager safety and sustainability of metformin treatment benefits [...] - will be starting Cardiac rehab at [facility], encouraged to increase physical activity as [...] Novolog correction only Darcie Lange APRN [facility] Endocrinology Diabetes Management [phone] Pager [phone] This case was discussed with Dr. Christina Brody. 25 min time spent in patient care with 20 counseling, seeing patient, changing orders and discussion with the patient and the primary team as well as nursing. * Inna Tovar MD - 01/07/2012 9:39 AM EST Cardiac Surgery Progress Note: ID: [id number] 36/M POD #[address] Tovar [...] results found for this basename: phart, po2art, wks2ksw Assessment/Plan: Pathway. Neuro: ambulating on own per [...] home. (ie take out the trash or brick picker his child) Objective:Pt was seen today [...] interventions: 30 minutes NAM TRINIDAD, PT Pager: [phone] Physical Therapy Rehabilitation Department * Vibha Martines [...] FOR CABG performed by INNA TOVAR at [facility] MAIN OR ??? Cabg, artery-vein, single 01/04/2012 @CABG, VENOUS & ARTERIAL GRAFT;SINGLE VEIN GRAFT performed by INNA TOVAR at [facility] MAIN OR Outpatient prescriptions marked as [...] Date: 12/29/11 Why then: Admission to [facility] What will be different this time: [...] in places where it is forbidden ex alevism No Yes 0 3. Which cigarette would [...] would be to continue to go [place]. He has quit this way before and it lasted several years, so he has a history of being successful with this method. He also pointed out that his father and an uncle quit (for now over 10 years) by going [place]. I told him that it is difficult to recommend a quit method that has a 90% failure rate, but that said, it is his choice and that I would provide him with a toolkit of information so that he will be as knowledgeable as possible about nicotineaddiction and how to stay quit. And we do know that 10% of those who quit [place] are able to be successful. I calculated and shared with him that his savings once he quits smoking would be $54 a week, $234 amonth, and $2803 a year. If he quits now his savings will be $28,030 in 10 years. The patient has also been provided with a [facility] Smoking Cessation packet and the contents have been reviewed with him. The patient now has the Quit line number for [place] and has also been encouraged to use this if needed for support. In addition he was in agreement with a referral to the [place] Quitnetworkand I have FAXed a referral to [...] Intervention: Hospital Day 9 Diet Order: [facility] Appetite: fair Food allergies: none Chewing/Swallowing difficulty: none Height: (cm) 180.3 Weight: (kg) 127.9 01/06/12 Wt hx: (kg) 124.5 12/29/11 BMI: 38.4 Education: [facility] dietary guidelines. Tips To Better Food Intake (Protein) dietary guidelines. Verbalized good understanding. Education material, with means of contact provided. Assessment: Patient verbalized good understanding of protein needs for healing as well as [facility] Heart Healthy guidelines. I have added high protein snacks between meals and CIB shakes to meal trays for extra protein/nutrition. Nutrition Plan: Diet: [facility] Recommend Daily Multi Vitamins. Added high protein snacks. CIB w/skim milk shakes three times per day. Encourage good po intake. Monitor weight. Support and encouragement provided. Nutrition services to follow weekly thru hospital course unless consulted in the interim. ACOSTA SMALL * Inna Tovar MD - 01/06/2012 1:50 PM EST Cardiac Surgery In Patient Progress Note Patient Name: Geovanna Dixon Jr. : [id number] MR#: [id number] Admitted: 12/29/2011 Hospital Day 8 days Problem [...] Hamlin RN - 01/06/2012 10:11 AM EST [facility] CARDIAC REHABILITATION Geovanna Dixon JrFlorencio was seen today regarding participation in outpatient Phase 2 Cardiac Rehabilitation at [facility] . A referral will be sent to this program. The patient was given contact information and should expect to be contacted by the program within 1-2 weeks after discharge from [facility]. * Kareen Mendoza PT - 01/05/2012 3:59 [...] FOR CABG performed by INNA TOVAR at [facility] MAIN OR ??? Cabg, artery-vein, single 01/04/2012 @CABG, VENOUS & ARTERIAL GRAFT;SINGLE VEIN GRAFT performed by INNA TOVAR at [facility] MAIN OR Social History: Patient lives [...] minutes brief evaluation KAREEN MENDOZA, PT Pager: [phone] Physical Therapy Rehabilitation Department * Camille Angulo [...] Doing well: follow cardiac surgery pathway (wean snigh, transfer to floor, start bb and lasix) [...] Assessment/CRC Note Office of Care Management Geovanna Viet Dixon Jr. 1975 O: Introduced self and [...] A: medical plan still evolving. 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 sodium chloride 0.9% 1,000 mL (12/30/1115) ??? sodium chloride 0.9% 30 mL/hr (12/30/11954) PRN Meds:.heparin (porcine), sodium chloride 0.9%, fentaNYL [...] FULL CODE Paola Akers PGY 1 Pager [phone] Attending Addendum: I spoke with the patient and his family briefly this am. I agree with the principal findings. The impression and plan incorporate my input. No contraindication to surgery today. Sarthak Pollard MD [facility] pager [phone] * Sarthak Pollard MD - 01/03/2012 11:08 [...] risk of aggravating CAD. Sarthak Pollard MD [facility] pager [phone] * Bal John MD - 01/02/2012 3:10 [...] NOTE Geovanna Shahmonika Heart SUMMARY: Geovanna Dixon Jr. is a 36 [...] Cristina Ambriz MD PGY1, Internal Medicine Pager [phone] 01/02/2012 Attending Addendum: I have interviewed and examined the patient. I agree with the principal findings. The impression and plan incorporate my input. As above, doing well. Will keep on heparin until surgery. No angina, HF, bleeding, or evidence of HIT. Sarthak Pollard MD [facility] pager [phone] * Inna Tovar MD - 01/01/2012 3:17 PM EST Please see Dr. Major's note from 12/31/11 for full details. Briefly, Mr. Dixon developed unstable angina and ruled in for [place]. Cath shows severe 3 vessel disease. Echo [...] - GI: Famotidine 20 mg BID Paola Cobosdelfina PGY 1 Pager [phone] Attending Addendum: I have interviewed and examined the patient. I agree with the principal findings. The impression and plan incorporate my input. He is disappointed that his surgery has been postponed until Wednesday butunderstands. He remains cp free. I've reviewed his angiograms and believe he needs to stay on heparin until surgery. All questions answered. Sarthak Pollard MD [facility] pager [phone] * Andi Rene MD - 12/31/2011 5:20 [...] for chest pain as a transfer from [facility] - Cardiac cath yesterday showed [...] mg BID Paola Akers PGY 1 Pager [phone] Cardiology Attending Progress Note Addendum: I have [...] would like to attend cardiac rehab at [facility] in [facility]. [...] Call saucedo within reach, family at bedside. 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 documented in this encounter H&P Notes * Herman Loyd RN - 01/05/2012 12:44 PM EST [facility] , report to [place]. * Inna Tovar [...] alleviate the pain. He eventually presented to [facility] on Wednesday wherehe had elevated [...] - exploratory laparotomy w/o bowel resection (ST. ) Medications prior to admission that will be [...] Lives on social security in house in [facility] with two children (18 and 4, and one step child) Active pack per day smoker (27pack year history) No etoh No drugs Enjoys riding motorcycles and hunting He is NOT a restorationist FHx: Heart disease on both sides of the family Father's side with multiple uncles with IL's, one at age of 40 Mother's side with uncle at age 50 from [place] Diabetes in mother ROS: Positive headache, nausea [...] 12/29/2011 PTT 31 12/30/2011 Troponins at [facility]: 0.05-->0.03 Imaging: Echo 12/30/11: 1. The [...] loss were emphasized as they relate to chcf patency of his grafts. He should receive smoking cessation counseling donya. One post op consideration will be vent wean and respiratory status given likely underlying CAMILLA and his known narcolepsy. Pre op orders written, heparin gtt to stop main galley scullion to OR. Pt seen and interviewed with [...] 25 pack year smoker comes to [facility] from [facility] for evaluation of intermittent CP since [...] history (both paternal grandparents passing away from [facility] and paternal aunts/uncles with histories [...] FULL Provider: REMIGIO CERON MD Pager #: [phone] documented in this encounter Procedure Notes * Provider, Scanning - 01/10/2012 1:46 PM ESTAssociated Order(s): SCAN DOC: FOOD SCIENCE TECHNICIAN * Provider, Scanning - 01/10/2012 1:46 PM [...] EST * Miscellaneous - Provider, Scanning 01/10/2012 2:08 PM EST * Miscellaneous - Provider, Scanning 01/10/2012 1:46 PM EST * Miscellaneous - Provider, Scanning 01/10/2012 1:46 PM EST * Miscellaneous - Provider, Scanning 01/10/2012 1:46 PM EST * Miscellaneous - Provider, Scanning 01/10/2012 1:46 PM EST * Miscellaneous - Provider, Scanning 01/10/2012 1:46 PM EST * Miscellaneous - Provider, Scanning 01/10/2012 1:46 PM EST * Consult Note - Darcie Lange, SEASONER HAND - 01/06/2012 3:45 PM EST Geovanna Dixon Jr. 1975 [id number] Inpatient Endocrinology Glucose Management Consult Date of Consultation: 01/06/2012 Place of Consultation: [facility] Consult Requested by: Dr. Tovar, CT Surgery Reason for Consultation: Geovanna Dixon Jr. is a 36 y.o. male who was admitted on 12/29/2011 for the diagnosis of CAD now s/p CABG x2 with Dr. Tovar, POD #2. We are asked to see him to assist with diabetes management and to provide a review of his assistant terminal manager diabetes plan. Diabetes History: Geovanna Dixon Jr. has NO history of diabetes, + for a family history of diabetes on mother's side and some on father's. Family history is also very significant for coronary artery disease. He stated that he has been tested in the past for diabetes but told that he does have diabetes, uncertain on A1C #. As per [facility] labs last A1C = 6.1% which [...] Care: Medications: None Monitoring: None Diet: [facility] Healthy No Known Allergies Past Medical [...] considerations about using metformin in Prediabetics: ?? [place] Diabetes Prevention Program (DPP) as well as other minor studies and meta-analyses hasconvincingly demonstrated the efficacy of metformin in this patient group [pre-diabetics]. In addition, results of the 10 year DPP follow up have recently been published, demonstrating the assistant terminal manager safety and sustainability of metformin treatment benefits [...] - will be starting Cardiac rehab at [facility], encouraged to increase physical activity as [...] 500 mg QD Darcie Lange APRN [facility] Endocrinology Diabetes Management [phone] Pager [phone] This case was discussed with Dr. Christina [...] alleviate the pain. He eventually presented to [facility] on Wednesday where he had [...] postoperative effusion or hematoma. Hospital Course: Geovanna Viet Dixon Jr. was admitted to [facility] on 12/29/2011 to the cardiologyservice for [...] None Condition at Discharge: Stable. Discharge Medications: Geoavnna Dixon Jr. Home Medication Instructions CRAIG:[id number] Printed on:01/08/12 5199 Medication Information simvastatin (ZOCOR) 20 mg tablet [...] Anne Tovar and/or the Cardiothoracic Surgery Physician Tank Truck Driver Team may be reached at . Activity [...] Dr. Inna Tovar. You may use a [place] Track or treadmill but avoid any pulling [...] friends, go to a movie, go to alevism, etc. Heavy activities: No hunting, skiing, jogging, [...] would be to continue to go [place]. He has quit this way before and [...] only 10% of those who quit [place] are able to be successful. The calculated savings once he quits smoking would be $54 a week, $234 a month, and $2803 a year. If he quits now his savings will be $28,030 in 10 years. The patient was provided with a [facility] Smoking Cessation packet and the contents [...] Some considerations about using metformin in Prediabetics: [place] Diabetes Prevention Program (DPP) as well as other minor studies and meta-analyses has convincingly demonstrated the efficacy of metformin in this patient group [pre-diabetics]. In addition, results of the 10 year DPP follow up have recently been published, demonstrating the assistant terminal manager safety and sustainability of metformin treatment benefits [...] - will be starting Cardiac rehab at [facility], encouraged to increase physical activity as advised by cardiologists Weight Loss - A 7% weight loss could significantly improve his BG control Tobacco cessation - There is growing evidence that cigarette smokers are more prone than the general population to develop T2DM. Increase in insulin resistance with tobacco use. Darcie Lange APRN [facility] Endocrinology Diabetes Management [phone] Medications: Take only those medications listed on [...] should resume a low fat, low cholesterol, [place] Heart Association Diet. Driving: No driving for [...] in outpatient Phase 2 Cardiac Rehabilitation at [facility] . A referral will be sent to this program. He was given contact information and shouldexpect to be contacted by the program within 1-2 weeks after discharge from [facility]. Arrangements for VNA/home care: PATIENT'S LOCATION: Geovanna Dixon Jr. [address] [place] [address] [place] [address] There is no home phone number on file. Telephone Information: In discussion with the attending physician, it is certified that this patient is under their care and that they, or a nurse practitioner, clinical nurse specialist or physician's podiatric assistant who is working directly with them, [...] for services as follows: HOME HEALTH AGENCY: [facility]. PHONE: [phone] FAX: [phone] RN orders: Cardiopulmonary assessment, incisional assessment, assess [...] issues please call the Cardiac SurgeryOffice at [phone] FOR MEDICARE ONLY: (please delete this section if not Medicare) In discussion with the attending physician, it is certified that the clinical findings support thatthis patient is homebound (i.e. absences from home require considerable and taxing effort and are for medical reasons or scientology services of infrequently or of short duration [...] nurse practitioner, clinical nurse specialist or physician's podiatric assistant who is working directly with them, [...] effort and are for medical reasons or scientology services of infrequently or of short duration when for other reasons) Please note that any additional orders needs or changes will need to be obtained from this patient's PCP: PATRIC AL MD [phone] All A agencies which cover the area of patient's residence have been reviewed, either verbally feli writing, and patient/family have chosen the indicated home health care agency for home services. Comments: Questions: Responses: Agency name and contact information [facility] Patient location post discharge home What services are requested Start date 01/10/2012 Responsible MD post discharge contact info PCP RN to remove chest tube sutures on or after 01/13/12. Signed: Ricky Graham PA-C [facility] Section of Cardiothoracic Surgery Date: 01/08/12 CC: PATRIC AL MD [facility] EMERGENCY DEPT [address] [place] [id number] * Op Note - Inna Tovar MD - 01/04/2012 3:55 PM EST [facility] Operative Note Patient Name: Geovanna Dixon Jr. : [id number] MR#: [id number] Case Date: 01/04/2012 Surgeon: Surgeon(s) and Role: [...] enlarged. There was diffuse disease in all cabazon vessels. The OFELIA and vein were of excellent quality. The lungs had early emphysematous changes. Procedure Details: The patient was brought to the operating room and given general anesthesia. A Townsend-Haley catheter, radial arterial line, and Mendez catheter [...] fter inspection for adequate hemostasis, two #28 Syriac chest tubes were placed and brought out [...] Note Patient Name: Geovanna Dixon Jr. 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 No recent out door activities or [...] likely. (Leukocytosis may be r/t stress of [place].) Bacteremia as a complication of his cath, [...] 1:00 PM EST Appointment XRay at [address] [place] [address] Isabela Hayward, [facility] [place] [address] 11/09/2024 1:30 PM EST Office Visit Infectious Disease at [place] [phone] Isabela Hayward, [facility] [place] [address] 11/10/2024 10:00 AM EST Office [place] [phone] Dai Whitman APRN 11/21/2024 2:15 PM EST Office Visit Endocrinology at [place] [phone] Dayanara Grover MD [facility] [place] [address] Scheduled Referrals Name Type Priority Associated Diagnoses Orde r Schedule REFERRAL TO CARDIAC REHAB Outpatient Referral Routine Chest pain Ordered: 01/08/2012 documented as of this encounter Procedures Procedure Name Priority Date/Time Associated Diagnosis Comments CARDIAC CATHETERIZATION Routine 01/11/20 12 11:04 AM EST LAB SCAN 01/10/2012 1:46 PM EST FOOD SCIENCE TECHNICIAN SCAN 01/10/2012 1:46 PM EST CARDIAC CATH [...] Routine 01/05/20 2:00 AM EST CARDIAC ENZYMES ([facility]P) Routine [...] 4:25 PM EST TYPE AND SCREEN ([facility]/CGP/BABITA) Routine 12/30/2011 4:14 PM EST CARDIAC ENZYMES ([facility]/CGP) STAT 12/30/2011 2:08 PM EST APTT STAT 12/30/2011 2:08 PM EST HIV SCREEN, 4TH GENERATION ([facility]/CGP/APD/NLH) Routine 12/30/2011 10:18 AM EST ECHOCARDIOGRAM [...] 12/30/2011 7:07 AM EST CARDIAC ENZYMES ([facility]/CGP) STAT 12/30/2011 5:45 AM EST APTT [...] 12 11:29 PM EST CARDIAC ENZYMES ([facility] [facility] [place]/[facility]) STAT 12/29/2011 11:29 PM EST APTT STAT [...] (Bezet) 453 ms MUSE SYSTEM Calculated P Fordyce 41 degrees MUSE SYSTEM Calculated R Fordyce 25 degrees MUSE SYSTEM Calculated T Fordyce 74 degrees MUSE SYSTEM INTERPRETATION Sinus tachycardia [...] SCAN EXT O RDR/RSLT * SCAN DOC: FOOD SCIENCE TECHNICIAN (01/10/2012 1:46 PM EST) Anatomical Region Laterality Modality Other Narrative 01/11/2012 8:32 AM EST Procedure Note Provider, Scanning - 01/10/2012 1:46 PM EST Scanning Provider MEDIA MGR SCAN EXT O RDR/RSLT * POCT GLUCOSE LAB USE ONLY (01/08/2012 12:00 PM EST) Glucose, POC 106 60 - 199 mg/dL [facility] Comment: Supplemental ranges: <110 mg/dL before meals <200 mg/dL all other times of the day Blood specimen (specimen) 01/08/2012 12:00 PM EST 01/08/2012 12:00 PM EST Andi Rene MD POINT OF CARE TEST O RDERABLES [facility] * Potassium (01/08/2012 10:05 AM EST) [...] Tovar MD CHEMISTRY ORDERABLES Performing Organization Address [facility] de Phone Number [facility] [...] RDERAHERNANDEZ Performing Organization Address [facility] Phone Number [facility] [...] CARE TEST O RDERAHERNANDEZ Performing Organization Address [facility] Phone Number [facility] [...] RDERABLES Performing Organization Address [facility] de Phone Number [facility] * Potassium (01/07/2012 11:42 AM EST) Potassium 3.6 3.5 - 5.0 mmol/L [facility] Comment: Please note: ??Patients with WBC >100,000 [...] Tovar MD CHEMISTRY ORDERABLES Performing Organization Address [facility] de Phone Number [facility] [employer] * POCT GLUCOSE LAB USE ONLY (01/07/2012 11:41 AM EST) [facility] Glucose, POC 114 60 - 199 mg/dL [facility] Comment: Supplemental ranges: <110 mg/dL before meals <200 mg/dL all other times of the day Blood specimen (specimen) 01/07/2012 11:41 AM EST 01/07/2012 11:41 AM EST nAdi Rene MD POINT OF CARE TEST O RDERABLES Performing Organization Address [facility] Phone Number [facility] [employer] * XR chest routine PA & lateral [...] USE ONLY (01/07/2012 8:00 AM EST) Pathologist [facility] Glucose, POC 116 60 - 199 mg/dL [facility] Comment: Supplemental ranges: <110 mg/dL before meals <200 mg/dL all other times of the day Blood specimen (specimen) 01/07/2012 8:00 AM EST 01/07/2012 8:00 AM EST Andi Rene MD POINT OF CARE TEST O RDERABLES [facility] * (ABNORMAL) DIFFERENTIAL, AUTOMATED (01/07/2012 4:11 AM EST) Neutrophil % 78.1(H) 34.0 - 71.0 % [facility] Neutrophil Absolute 12.83(H) 1.50 - 6.30 x10(3)/mc [...] HEMATOLOGY ORDERABLE S CERBRIAN MILLENNIUM * (ABNORMAL) Basic Metabolic Panel (non-fasting) [...] Sarthak Pollard MD HEMATOLOGY ORDERABLE S CERBRIAN CERDAIUM * Microalbumin, urine, random (01/06/2012 9:03 PM EST) Creatinine, Urine 136 mg/dL CE RNER MILLENNIUM Albumin, Urine 14.4 mg/L CERNE R MILLENNIUM Albumin / Creatinin Ratio, Urine 11 mcg/mg Cr CERNER MILLENNIUM Comment: Reference Range* Random collection (mcg/mg creatinine) Normal ?<30 Microalbuminuria ?? 30 - 300 Clinical Albuminuria ?? >300 *[place] Diabetes Association. Diabetic Nephropathy. Diabetes Care 1997;(Suppl 1):S24-S27 Exercise within 24 hour, infection, fever, CHF, marked hyperglycemia, and marked hypertension may elevate urinary albumin excretion over baseline values. Urine specimen (specimen) 01/06/2012 9:03 PM EST 01/06/2012 10:28 PM EST Narrative Resulting Agency Comment Spec In Lab Inna Tovar MD URINE ORDERABLES Performing Organization Address [facility] de Phone Number [facility] * POCT GLUCOSE LAB USE ONLY (01/06/2012 7:46 PM EST) Glucose, POC 127 60 - 199 mg/dL [facility] Comment: Supplemental ranges: <110 mg/dL before meals <200 mg/dL all other times of the day Blood specimen (specimen) 01/06/2012 7:46 PM EST 01/06/2012 7:46 PM EST Andi Rene MD POINT OF CARE TEST O RDERAHERNANDEZ Performing Organization Address [facility] de Phone Number [facility] * POCT GLUCOSE LAB USE ONLY (01/06/2012 4:24 PM EST) Glucose, POC 131 60 - 199 mg/dL [facility] Comment: Supplemental ranges: <110 mg/dL before meals <200 mg/dL all other times of the day Blood specimen (specimen) 01/06/2012 4:24 PM EST 01/06/2012 4:24 PM EST Andi Rene MD POINT OF CARE TEST O RDERAHERNANDEZ Performing Organization Address [facility] de Phone Number [facility] * POCT GLUCOSE LAB USE ONLY (01/06/2012 12:06 PM EST) Glucose, POC 160 60 - 199 mg/dL [facility] Comment: Supplemental ranges: <110 mg/dL before meals <200 mg/dL all other times of the day Blood specimen (specimen) 01/06/2012 12:06 PM EST 01/06/2012 12:06 PM EST Andi Rene MD POINT OF CARE TEST O RDERAHERNANDEZ Performing Organization Address [facility] de Phone Number [facility] [...] Tovar MD CHEMISTRY ORDERABLES Performing Organization Address [facility] de Phone Number [facility] [...] GILDA Performing Organization Address [facility] de Phone Number [facility] [...] RDERABLES Performing Organization Address [facility] Co de Phone Number [facility] [...] RDERAHERNANDEZ Performing Organization Address [facility] Co de Phone Number [facility] [...] CARE TEST O GILDA Performing Organization Address [facility] de Phone Number [facility] [...] RDERAHERNANDEZ Performing Organization Address [facility] Co de Phone Number [facility] [...] GILDA Performing Organization Address [facility] de Phone [facility] [...] GILDA Performing Organization Address [facility] de Phone [facility] [...] GILDA Performing Organization Address [facility] de Phone Number [facility] [...] TEST O RDTYESHA Performing Organization Address [facility] de Phone Number [facility] [...] GILDA Performing Organization Address [facility] Phone Number [facility] [...] GILDA Performing Organization Address [facility] de Phone Number [facility] [...] TEST O RDTYESHA Performing Organization Address [facility] de Phone Number [facility] [...] TEST O RDTYESHA Performing Organization Address [facility] de Phone Number [facility] [...] GILDA Performing Organization Address [facility] de Phone [facility] [...] RDERAHERNANDEZ Performing Organization Address [facility] de Phone Number [facility] [...] GILDA Performing Organization Address [facility] de Phone Number [facility] * POCT GLUCOSE LAB USE ONLY (01/05/2012 4:12 AM EST) Glucose, POC 148 60 - 199 mg/dL [facility] Comment: Supplemental ranges: <110 mg/dL before meals <200 mg/dL all other times of the day Blood specimen (specimen) 01/05/2012 4:12 AM EST 01/05/2012 4:12 AM EST Andi Rene MD POINT OF CARE TEST O GILDA Performing Organization Address [facility] Phone Number [facility] * POCT GLUCOSE LAB USE ONLY (01/05/2012 2:05 AM EST) Glucose, POC 148 60 - 199 mg/dL [facility] Comment: Supplemental ranges: <110 mg/dL before meals <200 mg/dL all other times of the day Blood specimen (specimen) 01/05/2012 2:05 AM EST 01/05/2012 2:05 AM EST Andi Rene MD POINT OF CARE TEST O GILDA Performing Organization Address [facility] Phone Number [facility] * (ABNORMAL) DIFFERENTIAL, AUTOMATED (01/05/2012 2:00 AM EST) Neutrophil % 79.0(H) 34.0 - 71.0 % [facility] Neutrophil Absolute 19.40(H) 1.50 - 6.30 x10(3)/mc L [facility] Lymph % 7.6(L) 19.0 - 53.0 % [facility] Lymphocytes Abs 1.9 1.0 - 3.6 x10(3)/mc [...] EST Sarthak Pollard MD HEMATOLOGY ORDERABLE S [facility] * (ABNORMAL) Cardiac Enzymes (01/05/2012 2:00 AM EST) Troponin-T 0.39(H) <=0.03 ng/mL [facility]ERNER MILLENNIUM Comment: 0.03 ng/mL: Represents the 99th percentile upper reference limit for normals. >0.03 ng/mL: Elevated cardiac troponin T level indicative of myocardial damage. Diagnosis of acute, evolving or recent [place] requires a typical rise and gradual fall [...] consensus document of the Joint Society of Cardiology/[place] College of Cardiology Committee for the redefinition of myocardial infarction. Journal of the [place] College of [employer]iology 2000; 36: 959-969] Creatine Kinase 436(H) 0 - 200 unit/L [facility] Blood specimen (specimen) 01/05/2012 2:00 AM EST 01/05/2012 2:11 AM EST Narrative Resulting Agency Comment Spec In Lab Sarthak Pollard MD CHEMISTRY ORDERABLES Performing Organization Address [facility] de Phone Number [facility] * Potassium (01/05/2012 2:00 AM EST) Potassium 4.4 3.5 - 5.0 mmol/L [facility] [...] ORDERABLES Performing Organization Address [facility] de Phone Number [facility] * (ABNORMAL) Glucose, fasting (01/05/2012 2:00 [...] of Diabetes Mellitus, Position Statement from the [place] Diabetes Association. ??Diabetes Care, Volume 33, Supplement 1, Nov 2009 Blood specimen (specimen) 01/05/2012 2:00 AM EST 01/05/2012 2:11 AM EST Narrative Resulting Agency Comment Spec In Lab Sarthak Pollard MD CHEMISTRY ORDERABLES [facility] [employer] * Creatinine, serum (01/05/2012 2:00 AM EST) Creatinine 0.86 0.80 - 1.50 mg/dL CERNER MILLENNIUM Est Glomerular Filtration Rate >60 >=60 [facility] [employer] Comment: The National Kidney Disease Education Program [...] ORDERABLES Performing Organization Address [facility] Co de Phone Number CERNER MILLENNIUM * BUN (01/05/2012 2:00 AM EST) Blood Urea Nitrogen 10 10 - 20 mg/dL CERNER MILLENNIUM Blood specimen (specimen) 01/05/2012 2:00 AM EST 01/05/2012 2:11 AM EST Narrative Resulting Agency Comment Spec In Lab Sarthak Pollard MD CHEMISTRY ORDERABLES Performing Organization Address [facility] Co de Phone Number CERNER MILLENNIUM * (ABNORMAL) CBC (with Diff) (01/05/2012 [...] S Performing Organization Address [facility] Co de Phone Number [facility] RDERABLES Performing Organization Address [facility] de Phone Number [facility] [...] RDERABLES Performing Organization Address [facility] Co de Phone Number [facility] * GLUCOSE, RANDOM (01/04/2012 9:00 PM EST) Glucose 128 60 - 199 mg/dL [facility] Comment:Diabetes: >=200 mg/d L plus symptoms Blood specimen (specimen) 01/04/2012 9:00 PM EST 01/04/2012 9:08 PM EST Narrative Resulting Agency Comment Spec In Lab Sarthak Pollard MD CHEMISTRY ORDERABLES Performing Organization Address [facility] Co de Phone Number [facility] * (ABNORMAL) Hemoglobin (01/04/2012 9:00 PM EST) Hemoglobin 13.6(L) 13.7 - 17.5 gm/dL [facility]ERN[facility] MILLENNIUM Blood specimen (specimen) 01/04/2012 9:00 PM EST 01/04/2012 9:08 PM EST Narrative Resulting Agency Comment Spec In Lab Sarthak Pollard MD HEMATOLOGY ORDERABLE S Performing Organization Address [facility] de Phone Number ARIAN CERDAIUM * Potassium [...] ORDERABLES Performing Organization Address [facility] de Phone Number CERBRIAN CERDAIUM * (ABNORMAL) BLOOD GAS 2 ARTERIAL (01/04/2012 6:47 PM EST) pH, Arterial 7.33(L) CERNER MILLENNIUM PCO2, Arterial 47(H) mmHg CERNE R MILLENNIUM PO2, Arterial 109(H) mmHg CERNER MILLENNIUM Bicarbonate, Arterial 24.1 mmol/L CERNER MILLENNIUM Base Excess, Arterial -1.9 mmol/L CERNER MILLENNIUM Hgb Blood Gas 14.1 gm/dL CERNER MILLENNIUM Comment: Total Hemoglobin (in gm/dL) ?Based on [facility] [place] Hematology ranges: ?Age ?Reference Range Less [...] Total Hemoglobin (in gm/dL) ?Based on [facility] [place] Hematology ranges: ?Age ?Reference Range Less [...] Total Hemoglobin (in gm/dL) ?Based on [facility] [place] Hematology ranges: ?Age ?Reference Range Less [...] (Bezet) 455 ms MUSE SYSTEM Calculated P Fordyce 48 degrees MUSE SYSTEM Calculated R Fordyce 23 degrees MUSE SYSTEM Calculated T Fordyce 71 degrees MUSE SYSTEM INTERPRETATION Normal sinus rhythm Normal ECG When compared with ECG of 30-DEC-2011 17:24, Vent. rate has decreased BY ??35 BPM Minimal criteria for Inferior infarct are no longer Present Nonspecific T wave abnormality, improved in Anterolateral leads Confirmed by fellow MD Steve, Luca ([id number]) on 01/05/2012 10:22:57 AM Confirmed by MD [...] CERNER MILLENNIUM Comment: Noted by supervisor instrument maintenance. MTF PO2, Arterial 145(H) mmHg CERNER MILLENNIUM Bicarbonate, Arterial 25.5 mmol/L CERNER MILLENNIUM Base Excess, Arterial -0.7 mmol/L CERNER MILLENNIUM Hgb Blood Gas 11.1(L) gm/dL CERNER MILLENNIUM Comment: Total Hemoglobin (in gm/dL) ?Based on [facility] [place] Hematology ranges: ?Age ?Reference Range Less [...] RDERABLES Performing Organization Address [facility] Co de Phone Number CERNER MILLENNIUM * THROMBIN TIME (01/04/2012 3:28 PM EST) Thrombin Time 17 15 - 20 sec CERNER MILLENNIUM Blood specimen (specimen) 01/04/2012 3:28 PM EST 01/04/2012 3:28 PM EST Narrative Resulting Agency Comment Spec In Lab Sarthak Pollard MD HEMATOLOGY ORDERABLE S Performing Organization Address [place]/[facility] Co de Phone Number CERNER MILLENNIUM * FIBRINOGEN (01/04/2012 3:28 PM EST) Fibrinogen 364 200 - 470 mg/dL [facility] Comment:Called by: [facility], Read back by: AKANKSHA SAMPSON, Date/Time:01/04/12 15:45. Blood specimen (specimen) 01/04/2012 3:28 PM EST 01/04/2012 3:28 PM EST Narrative Resulting Agency Comment Spec In Lab Sarthak Pollard MD HEMATOLOGY ORDERABLE S Performing Organization Address [facility] de Phone Number [facility] [...] S Performing Organization Address [facility] de Phone Number [facility] * (ABNORMAL) PROTHROMBIN TIME (01/04/2012 3:28 PM EST) Prothrombin Time 17.8(H) 11.9 - 14.7 sec [facility] Comment: [facility] Transfusion Committee Guidelines: INR less than 2.0, PTT less than OR equal to 43.5 seconds, or Fibrinogen greater than or equal to 100 mg/dl indicate adequate procoagulant activity for hemostasis in patients without underlying bleeding disorders. International Normalization Ratio 1.4(H) 0.9 - 1.1 [facility] Blood specimen (specimen) 01/04/2012 3:28 PM EST 01/04/2012 3:28 PM EST Narrative Resulting Agency Comment Spec In Lab Sarthak Pollard MD HEMATOLOGY ORDERABLE S Performing Organization Address [facility] de Phone Number [facility] * (ABNORMAL) CBC (WITH DIFF) (01/04/2012 3:28 [...] CERNER MILLENNIUM Comment: Noted by supervisor instrument maintenance. MTF PO2, Arterial 296(H) mmHg CERNER MILLENNIUM Bicarbonate, Arterial 26.3(H) mmol/L CERNER MILLENNIUM Base Excess, Arterial 0.1 mmol/L CERNER MILLENNIUM Hgb Blood Gas 10.2(L) gm/dL CERNER MILLENNIUM Comment: Total Hemoglobin (in gm/dL) ?Based on [facility] [place] Hematology ranges: ?Age ?Reference Range Less [...] RDERABLES Performing Organization Address [facility] Co de Phone Number [facility] ROBYEN[facility] * FIBRINOGEN (01/04/2012 2:25 PM EST) Fibrinogen 356 200 - 470 mg/dL CERNER MILLENNIUM Comment:Called by: LEILANI, Read back by: AKANKSHA SAMPSON, Date/Time:01/04/12 14:49. Blood specimen (specimen) 01/04/2012 2:25 PM EST 01/04/2012 2:32 PM EST Narrative Resulting Agency Comment Spec In Lab Sarthak Pollard MD HEMATOLOGY ORDERABLE S Performing Organization Address [facility] de Phone Number [facility] ROBYEN[facility] * PLATELET COUNT (01/04/2012 2:25 PM EST) Platelet 281 145 - 370 x10(3)/mcL CERNER MILLENNIUM Blood specimen (specimen) 01/04/2012 2:25 PM EST 01/04/2012 2:32 PM EST Narrative Resulting Agency Comment Spec In Lab Sarthak Pollard MD HEMATOLOGY ORDERABLE S Performing Organization Address [facility] de Phone Number [facility] MILLENNIUM * (ABNORMAL) BLOOD GAS 2 ARTERIAL (01/04/2012 12:59 PM EST) pH, Arterial 7.36 CERNER MILLENNIUM PCO2, Arterial 48(H) mmHg CERNE R MILLENNIUM PO2, Arterial 197(H) mmHg CERNER MILLENNIUM Bicarbonate, Arterial 26.7(H) mmol/L CERNER MILLENNIUM Base Excess, Arterial 1.3 mmol/L CERNER MILLENNIUM Hgb Blood Gas 13.9 gm/dL CERNER MILLENNIUM Comment: Total Hemoglobin (in gm/dL) ?Based on [facility] [place] Hematology ranges: ?Age ?Reference Range Less [...] CARE TEST O RDERABLES Performing Organization Address [place]/[facility] Co de Phone Number ARIAN CERDAIUM * Prepare Coag Factors (Non-Hemophilia) (01/04/2012 12:05 PM EST) Dispensed? Yes ARIAN NELSON Blood specimen (specimen) 01/04/2012 12:05 PM EST 01/04/2012 12:01 PM EST Narrative Resulting Agency Comment Spec In Lab Inna Tovar MD BLOOD BANK PRODUCT O RDERABLES Performing Organization Address [facility] Co de Phone Number ARIAN CERDAIUM * Prepare RBC (01/04/2012 12:05 PM EST) Dispensed? Yes ARAIN NELSON Blood specimen (specimen) 01/04/2012 12:05 PM EST 01/04/2012 12:01 PM EST Narrative Resulting Agency Comment Spec In Lab Inna Tovar MD BLOOD BANK PRODUCT O RDERABLES Performing Organization Address [facility] Co de Phone Number ARIAN [...] 0.0 - 0.2 x10(3)/mc L CERNER MILLENNIUM Cable Absolute Manual 0.3(H) 0.0 - 0.0 x10(3)/mc [...] of Diabetes Mellitus, Position Statement from the [place] Diabetes Association. ??Diabetes Care, Volume 33, Supplement [...] ORDERABLE S CERNER MILLENNIUM * (ABNORMAL) APTT (01/04/2012 4:40 AM EST) Partial Thromboplastin Time 103(H) 25 - 35 sec CERNER MILLENNIUM Comment: Recommended therapeutic PTT range for full dose unfractionated heparin is 80-114 seconds. Blood specimen (specimen) 01/04/2012 4:40 AM EST 01/04/2012 4:52 AM EST Narrative Resulting Agency Comment Spec In Lab Sarthak Pollard MD HEMATOLOGY ORDERABLE S Performing Organization Address [facility] de Phone Number CERNER MILLENNIUM [...] S Performing Organization Address [facility] de Phone Number CERNER MILLENNIUM [...] S Performing Organization Address [facility] de Phone Number CERNER MILLENNIUM [...] MD BLOOD BANK LAB ORDER RANDELL CERNER MILLENNIUM * ABO/RH TYPING (01/03/2012 6:15 AM EST) ABORH Type A Pos CERNER MILLENNIUM Blood specimen (specimen) 01/03/2012 6:15 AM EST 01/03/2012 6:35 AM EST Narrative Resulting Agency Comment Spec In Lab Sarthak Pollard MD BLOOD BANK LAB ORDER RANDELL CERBRIAN CERDAIUM * (ABNORMAL) APTT (01/03/2012 6:15 AM EST) Partial Thromboplastin Time 96(H) 25 - 35 sec CERNER MILLENNIUM Comment: Recommended therapeutic PTT range for full dose unfractionated heparin is 80-114 seconds. Blood specimen (specimen) 01/03/2012 6:15 AM EST 01/03/2012 6:23 AM EST Narrative Resulting Agency Comment Spec In Lab Sarthak Pollard MD HEMATOLOGY ORDERABLE S Performing Organization Address [facility] Co de Phone Number CERBRIAN CAENNIUM * (ABNORMAL) BMP w/fasting Glucose (01/03/2012 6:15 [...] of Diabetes Mellitus, Position Statement from the [place] [employer]. ??Diabetes Care, Volume 33, Supplement [...] In Lab Andiemely Rene MD CHEMISTRY ORDERABLES [facility] ROBYENNIUM * (ABNORMAL) CBC (with Diff) (01/03/2012 6:15 [...] S Performing Organization Address [facility] Co de Phone Number [facility]BRIAN MILLENNIUM * (ABNORMAL) APTT (01/02/2012 11:21 PM EST) Partial Thromboplastin Time 69(H) 25 - 35 sec CERNER MILLENNIUM Comment: Recommended therapeutic PTT range for full dose unfractionated heparin is 80-114 seconds. Blood specimen (specimen) 01/02/2012 11:21 PM EST 01/02/2012 11:24 PM EST Narrative Resulting Agency Comment Spec In Lab Sarthak Pollard MD HEMATOLOGY ORDERABLE S Performing Organization Address City/[facility]/ZIP Co de Phone Number CERNER MILLENNIUM * (ABNORMAL) APTT (01/02/2012 5:32 PM EST) Partial Thromboplastin Time 53(H) 25 - 35 sec CERNER MILLENNIUM Comment: Recommended therapeutic PTT range for full dose unfractionated heparin is 80-114 seconds. Blood specimen (specimen) 01/02/2012 5:32 PM EST 01/02/2012 5:38 PM EST Narrative Resulting Agency Comment Spec In Lab Sarthak Pollard MD HEMATOLOGY ORDERABLE S Performing Organization Address City/[facility]/ZIP Co de Phone Number CERBRINA CAENNIUM * (ABNORMAL) APTT (01/02/2012 11:56 AM [...] Absolute 0.0 0.0 - 0.2 x10(3)/mc L [facility] MILLENNIUM Immature Gran % 1.00(H) 0.00 - 0.66 % [facility] MILLENNIUM Comment: Immature granulocytes(IG's)percentage and absolute count will include metamyelocytes, myelocytes, and promyelocytes. Blood smears from CBCs yielding IG's will be scanned manually for concordance. If this scan disagrees with the automated IG or if promyelocytes are noted, a manual differential will be performed. Immature Gran Absolute 0.10(H) 0.00 - 0.05 x10(3)/mc L [facility] Blood specimen (specimen) 01/02/2012 6:02 AM EST 01/02/2012 6:29 AM EST Remigio Ceron MD HEMATOLOGY ORDERABLE S Performing Organization Address City/[facility]/ZIP Co de Phone Number [facility] * (ABNORMAL) APTT (01/02/2012 6:02 AM EST) Partial Thromboplastin Time 42(H) 25 - 35 sec [facility] Comment: Recommended therapeutic PTT range for full dose unfractionated heparin is 80-114 seconds. Blood specimen (specimen) 01/02/2012 6:02 AM EST 01/02/2012 6:29 AM EST Narrative Resulting Agency Comment Spec In Lab Sarthak Pollard MD HEMATOLOGY ORDERABLE S [facility] * (ABNORMAL) BMP w/fasting Glucose (01/02/2012 6:02 AM EST) Glucose Fasting 113(H) 65 - 99 mg/dL [facility] of Diabetes Mellitus, Position Statement from the [place] [employer]. ??Diabetes Care, Volume 33, Supplement [...] MD HEMATOLOGY ORDERABLE S Performing Organization Address City/[facility]/ZIP Co de Phone Number ARIAN CERDAIUM * (ABNORMAL) DIFFERENTIAL, AUTOMATED (01/01/2012 6:37 PM [...] MD HEMATOLOGY ORDERABLE S CERBRIAN CAENNIUM * APTT (01/01/2012 6:37 PM EST) Partial Thromboplastin Time 32 25 - 35 sec CERNER MILLENNIUM Comment: Recommended therapeutic PTT range for full dose unfractionated heparin is 80-114 seconds. Blood specimen (specimen) 01/01/2012 6:37 PM EST 01/01/2012 6:43 PM EST Narrative Resulting Agency Comment Spec In Lab Sarthak Pollard MD HEMATOLOGY ORDERABLE S Performing Organization Address [facility] Phone Number [facility] [employer] * POCT GLUCOSE LAB USE ONLY (01/01/2012 12:02 PM EST) Glucose, POC 99 60 - 199 mg/dL [facility] Comment: Supplemental ranges: <110 mg/dL before meals <200 mg/dL all other times of the day Blood specimen (specimen) 01/01/2012 12:02 PM EST 01/01/2012 12:02 PM EST Andi Rene MD POINT OF CARE TEST O RDERABLES Performing Organization Address [facility] Phone Number [employer] * (ABNORMAL) APTT (01/01/2012 11:59 AM EST) Partial Thromboplastin Time 108(H) 25 - 35 sec [facility] Comment: Recommended therapeutic PTT range for full dose unfractionated heparin is 80-114 seconds. Blood specimen (specimen) 01/01/2012 11:59 AM EST 01/01/2012 12:06 PM EST Narrative Resulting Agency Comment Spec In Lab Andi Rene MD HEMATOLOGY ORDERABLE S Performing Organization Address [facility] Phone Number [employer] * XR chest routine PA & lateral [...] MD HEMATOLOGY ORDERABLE S Performing Organization Address City/[facility]/ZIP Co de Phone Number ARIAN CERDAIUM * (ABNORMAL) BMP w/fasting Glucose (01/01/2012 5:19 [...] of Diabetes Mellitus, Position Statement from the [place] [employer]. ??Diabetes Care, Volume 33, Supplement [...] In Lab Andi Rene MD CHEMISTRY ORDERABLES [facility] [employer]IUM * (ABNORMAL) CBC (with Diff) (01/01/2012 5:19 [...] MD HEMATOLOGY ORDERABLE S Performing Organization Address City/[facility]/ZIP Co de Phone Number CERBRIAN CAENNIUM * (ABNORMAL) APTT (12/31/2011 11:01 PM EST) Partial Thromboplastin Time 72(H) 25 - 35 sec CERNER MILLENNIUM Comment: Recommended therapeutic PTT range for full dose unfractionated heparin is 80-114 seconds. Blood specimen (specimen) 12/31/2011 11:01 PM EST 12/31/2011 11:18 PM EST Narrative Resulting Agency Comment Spec In Lab Andi Rnee MD HEMATOLOGY ORDERABLE S CERNER MILLENNIUM * Upper Respiratory Culture Throat (12/31/2011 9:55 PM EST) Upper Respiratory Culture ? Patient Name: ZACK HEART, GEOVANNA Llanos ? Ordered By: ANDI RENE ? MR#: [id number] ?LOC: ??[facility] ? /Sex: ??1975 (36 years), ? Male ? PROCEDURE: Upper Respiratory Culture ?SOURCE: Throat ? COLLECTED: 12/31/2011 21:55 ? STARTED: 12/31/2011 22:16 ? FINAL REPORT ? Final Report ? Verified:2011 08:12 ? Beta Hemolytic Streptococci, Group A isolated ? PRELIMINARY REPORT ? Preliminary Report ? Verified:2011 09:46 ? Beta Hemolytic Streptococci, Group A isolated ? [facility] Specimen from throat (specimen) 12/31/2011 9:55 PM EST 12/31/2011 10:16 PM EST Narrative Resulting Agency Comment Spec In Lab Andi Rene MD MICROBIOLOGY - GENER AL ORDERABLES [facility] * (ABNORMAL) APTT (12/31/2011 4:34 PM EST) Partial Thromboplastin Time 66(H) 25 - 35 sec [facility] Comment: Recommended therapeutic PTT range for full dose unfractionated heparin is 80-114 seconds. Blood specimen (specimen) 12/31/2011 4:34 PM EST 12/31/2011 4:39 PM EST Narrative Resulting Agency Comment Spec In Lab Andi Rene MD HEMATOLOGY ORDERABLE S Performing Organization Address City/[facility] Co de Phone Number [facility] * Duplex Study for DVT, Bilat legs (12/31/2011 11:07 AM EST) VB Text Report Department: Vascular Surgery Lab Patient: [id number] (GEOVANNA DIXON) CPT Code: 23146 ICD-9: 780.6 Referring Physician: ANDI RENE Indication: [...] Rene MD VASCULAR ORDERABLES Performing Organization Address City/[facility]/ZIP Co de Phone Number [employer] * SMEAR REVIEW REPORT (12/31/2011 10:39 AM EST) Smear Review Report ? [facility] ? Provider: ?? TIFFANIE, ANDI S ?Pt. Name: ?? ZACK REYNA, GEOVANNA Llanos ? Acc #: ?[id number] ? Pt. ? Col Date: ?? 12/31/2011 [...] MD HEMATOLOGY ORDERABLE S ARIAN CERDAIUM * Lactate Dehydrogenase (12/31/2011 9:44 AM EST) Lactate Dehydrogenase 123 110 - 220 unit/L CERNER MILLENNIUM Blood specimen (specimen) 12/31/2011 9:44 AM EST 12/31/2011 10:12 AM EST Narrative Resulting Agency Comment Spec In Lab Andi Rene MD CHEMISTRY ORDERABLES Performing Organization Address City/[facility] Co de Phone Number ARIAN CERDAIUM * Peripheral Smear Review (12/31/2011 9:44 AM EST) Peripheral Smear Review See Comment CERBRIAN ROBYENNIUM Comment: When completed by the Pathologist, report [id number] will display under Hematology Reports. Blood specimen (specimen) 12/31/2011 9:44 AM EST 12/31/2011 10:12 AM EST Narrative Resulting Agency Comment Spec In Lab Andi Rene MD HEMATOLOGY ORDERABLE S Performing Organization Address [facility] Co de Phone Number ARIAN CERDAIUM * (ABNORMAL) APTT (12/31/2011 9:44 AM EST) Partial Thromboplastin Time 50(H) 25 - 35 sec ARIAN CAENNIUM Comment: Recommended therapeutic PTT range for full dose unfractionated heparin is 80-114 seconds. Blood specimen (specimen) 12/31/2011 9:44 AM EST 12/31/2011 10:12 AM EST Narrative Resulting Agency Comment Spec In Lab Andi Rene MD HEMATOLOGY ORDERABLE S Performing Organization Address [facility] Co de Phone Number ARIAN [...] Absolute 0.08(H) 0.00 - 0.05 x10(3)/mc L [facility] Blood specimen (specimen) 12/31/2011 3:38 AM EST 12/31/2011 3:50 AM EST Remigio Ceron MD HEMATOLOGY ORDERABLE S Performing Organization Address City/[facility]/ZIP Co de Phone Number [facility] * (ABNORMAL) APTT (12/31/2011 3:38 AM EST) Partial Thromboplastin Time 47(H) 25 - 35 sec [facility] Comment: Recommended therapeutic PTT range for full dose unfractionated heparin is 80-114 seconds. Blood specimen (specimen) 12/31/2011 3:38 AM EST 12/31/2011 3:50 AM EST Narrative Resulting Agency Comment Spec In Lab Andi Rene MD HEMATOLOGY ORDERABLE S [facility] * (ABNORMAL) BMP w/fasting Glucose (12/31/2011 [...] of Diabetes Mellitus, Position Statement from the [place] Diabetes [employer]. ??Diabetes Care, Volume 33, Supplement [...] Platelet Volume 10.3 9.0 - 12.0 fL ARIAN NELSON Blood specimen (specimen) 12/31/2011 3:38 AM EST 12/31/2011 3:50 AM EST Narrative Resulting Agency Comment Spec In Lab Remigio Ceron MD HEMATOLOGY ORDERABLE S Performing Organization Address [facility] Co de Phone Number ARIAN NELSON * (ABNORMAL) APTT (12/30/2011 9:02 PM EST) Partial Thromboplastin Time 37(H) 25 - 35 sec ARIAN NELSON Comment: Recommended therapeutic PTT range for full dose unfractionated heparin is 80-114 seconds. Blood specimen (specimen) 12/30/2011 9:02 PM EST 12/30/2011 9:10 PM EST Narrative Resulting Agency Comment Spec In Lab Andi Rene MD HEMATOLOGY ORDERABLE S Performing Organization Address [facility] Co de Phone Number ARIAN ENLSON * EKG 12 Lead (12/30/2011 5:24 PM EST) Ventricular rate 107 BPM MUSE SYSTEM Atrial Rate 107 BPM MUSE SYSTEM P-R Interval 160 ms MUSE SYSTEM QRS Duration 104 ms MUSE SYSTEM Q-T Interval 310 ms MUSE SYSTEM QTC Calculated (Bezet) 413 ms MUSE SYSTEM Calculated P [place] 24 degrees MUSE SYSTEM Calculated R [place] 25 degrees MUSE SYSTEM Calculated T [place] 54 degrees MUSE SYSTEM INTERPRETATION Sinus tachycardia Cannot rule out Inferior infarct , age undetermined Nonspecific T wave abnormality Abnormal ECG When compared with ECG of 29-DEC-2011 23:13, No significant change was found Confirmed by MD VAIBHAV, SARTHAK ([id number]) on 12/31/2011 10:51:02 AM MUSE SYSTEM 12/30/2011 5:24 PM EST 12/31/2011 10:51 AM EST Andi Rene MD ECG ORDERABLES Performing Organization Address [facility] Co de Phone Number MUSE SYSTEM * Blood culture (12/30/2011 5:04 PM EST) Blood Culture ? Patient Name: ZACK REYNA GEOVANNA Viet ?Ordered By: ANDI RENE ? MR#: [id number] ?LOC: ??[facility] ? /Sex: ??1975 (36 years), [...] EST) Blood Culture ? Patient Name: ZACK REYNA GEOVANNA Viet ?Ordered By: ANDI RENE ? MR#: [id number] ?LOC: ??[facility] ? /Sex: ??1975 (36 years), ? Male ? PROCEDURE: Blood Culture ?SOURCE: Blood ? COLLECTED: 12/30/2011 16:51 ?FREE TEXT SOURCE: LAC ? STARTED: 12/30/2011 17:33 ? FINAL REPORT ? Final Report ? Verified:2011 15:07 ? No growth at 5 days. ? PRELIMINARY REPORT ? Preliminary Report ? Verified:2011 23:07 ? No growth at 4 days. ? ARIAN CAENNIUM Blood specimen (specimen) 12/30/2011 4:51 PM EST 12/30/2011 5:33 PM EST Narrative Resulting Agency Comment Spec In Lab Andi Rene MD MICROBIOLOGY - BLOOD ORDERABLES ARIAN CERDAIUM * (ABNORMAL) DIFFERENTIAL, AUTOMATED (12/30/2011 4:25 PM [...] PM EST) Ab Screen Interp Negative CERNER MILLENNIUM Expires at [id number] on: [id number] CERNER MILLENNIUM Blood specimen (specimen) [...] BANK LAB ORDER RANDELL Performing Organization Address City/[facility]/ZIP Co de Phone Number ARIAN CERDAIUM * Glucose, random (12/30/2011 4:25 PM EST) Glucose 126 60 - 199 mg/dL CERBRIAN CAENNIUM Comment:Diabetes: >=200 mg/d L plus symptoms Blood specimen (specimen) 12/30/2011 4:25 PM EST 12/30/2011 4:43 PM EST Narrative Resulting Agency Comment Spec In Lab Andi Rene MD CHEMISTRY ORDERABLES Performing Organization Address [facility] de Phone Number ARIAN CERDAIUM [...] Platelet Volume 10.5 9.0 - 12.0 fL [facility] ROBYENNIUM Blood specimen (specimen) 12/30/2011 4:25 PM EST 12/30/2011 4:43 PM EST Narrative Resulting Agency Comment Spec In Lab Andi Rene MD HEMATOLOGY ORDERABLE S Performing Organization Address [facility] Co de Phone Number ARIAN CERDAIUM * APTT (12/30/2011 2:08 PM EST) Partial Thromboplastin Time 31 25 - 35 sec [facility] [employer]ENNIUM Comment: Recommended therapeutic PTT range for full dose unfractionated heparin is 80-114 seconds. Blood specimen (specimen) 12/30/2011 2:08 PM EST 12/30/2011 2:27 PM EST Narrative Resulting Agency Comment Spec In Lab Andi Rene MD HEMATOLOGY ORDERABLE S Performing Organization Address [facility] de Phone Number ARIAN CERDAIUM * Cardiac Enzymes (12/30/2011 2:08 PM EST) Troponin-T 0.03 <=0.03 ng/mL [facility] [employer] Comment: 0.03 ng/mL: Represents the 99th percentile upper reference limit for normals. >0.03 ng/mL: Elevated cardiac troponin T level indicative of myocardial damage. Diagnosis of acute, evolving or recent [place] requires a typical rise and gradual fall [...] consensus document of the Joint Society of Cardiology/[place] College [employer] Committee for the redefinition of myocardial infarction. Journal of the [place] College [employer] 2000; 36: 959-969] Creatine Kinase 72 0 - 200 unit/L [facility] MILLENNIUM Blood specimen (specimen) 12/30/2011 2:08 PM EST 12/30/2011 2:27 PM EST Narrative Resulting Agency Comment Spec In Lab Authorizing Provider Result Aure Ceron MD CHEMISTRY ORDERABLES Performing Organization Address [facility] Co de Phone Number [facility] * HIV (12/30/2011 10:18 AM EST) Pathologist [facility] HIV 1/2 Ab Negative [facility] Blood specimen (specimen) 12/30/2011 10:18 AM EST 12/30/2011 10:28 AM EST Narrative Resulting Agency Comment Spec In Lab Andi Rene MD CHEMISTRY ORDERABLES Performing Organization Address [facility] Co de Phone Number [facility] * Echo Transthoracic (Complete) (12/30/2011 9:47 AM EST) Pathologist [facility] EF 55 [facility]ART[facility] SYSTEM Anatomical Region Laterality Modality Other 12/30/2011 Narrative 12/30/2011 10:02 AM EST Procedure: ? Transthoracic Echocardiogram Patient: ? ZACK AUSTIN P ?(Age): 1975(36) Med Rec#: ?[id number] ? Sex: ?M ? Site Loc: ?[facility] ? Ht / Wt: ??180(cm)/124(kg) Pt. Loc: ? Adult Floor ?BSA: ?2.41 Study Date: ?12/30/2011 ? Pt. Type: Inpatient Tape: ? Referring: Remigio Ceron Intelligence Support Officer: Benjamin Lundberg Diagnosis: ??Chest pain (786.50) CPT Code(s): ??Spectral Doppler (47880), ??Color Doppler (65257), ??Echo Full (23650), Indication(s): ??Chest Pain Rhythm: HR ?BP ?106/60 [...] 12/30/2011 10:01:28 Images reviewed and interpretation verified [facility] Cardiac Ultrasound Laboratory Procedure Note Zak Coley MD - 12/30/2011 Procedure: Transthoracic Echocardiogram Patient: ZACK Llanos (Age): 1975(36) Med Rec#: [id number] Sex: M Site Loc: [facility] Ht / Wt: 180(cm)/124(kg) Pt. Loc: Adult Floor BSA: 2.41 Study Date: 12/30/2011 Pt. Type: Inpatient Tape: Referring: Remigio Ceron Intelligence Support Officer: Benjamin Lundberg Diagnosis: Chest pain (786.50) CPT Code(s): Spectral Doppler (49231), Color Doppler (46441), Echo Full (53121), Indication(s): Chest Pain Rhythm: HR BP 106/60 [...] 12/30/2011 10:01:28 Images reviewed and interpretation verified [facility] Cardiac Ultrasound Laboratory Remigio Ceron MD [...] Urine Dipstick Clear Clear CERNER MILLENNIUM Specific [place] Urine Automated 1.019 1.002 - 1.030 CERNER [...] In Lab Andi Rene MD URINE ORDERABLES [facility] MILLENNIUM * Rapid Qual Drug Screen, Urine ([facility]) (12/30/2011 9:32 AM EST) U IVAN [...] device is being used in the [facility] Chemistry Laboratory. Please contact the chemistry laboratory at [phone] with questions. Urine specimen (specimen) 12/30/2011 9:32 AM EST 12/30/2011 9:45 AM EST Narrative Resulting Agency Comment Spec In Lab Andi Rene MD URINE ORDERABLES [facility] * Urine culture Clean Catch Urine (12/30/2011 9:31 AM EST) Urine Culture ? Patient Name: GEOVANNA DIXON JR ?Ordered By: ANDI RENE ? MR#: [id number] ?LOC: ??[facility] ? /Sex: ?? 4 (36 [...] MD HEMATOLOGY ORDERABLE S ARIAN CAENNIUM * Hemoglobin A1c (12/30/2011 7:07 AM EST) [...] into estimated average glucose values. ??Diabetes Care 2008:31(8):0779-9576. Blood specimen (specimen) 12/30/2011 7:07 AM EST 12/30/2011 7:18 AM EST Narrative Resulting Agency Comment Spec In Lab Remigio Ceron MD CHEMISTRY ORDERABLES [facility] * (ABNORMAL) APTT (12/30/2011 5:45 AM EST) Partial Thromboplastin Time 45(H) 25 - 35 sec [facility] Comment: Recommended therapeutic PTT range for full dose unfractionated heparin is 80-114 seconds. Blood specimen (specimen) 12/30/2011 5:45 AM EST 12/30/2011 6:10 AM EST Narrative Resulting Agency Comment Spec In Lab Andi Rene MD HEMATOLOGY ORDERABLE S Performing Organization Address [facility] Co de Phone Number [facility] * (ABNORMAL) Glucose, fasting (12/30/2011 5:45 [...] of Diabetes Mellitus, Position Statement from the [place] Diabetes [employer]. ??Diabetes Care, Volume 33, Supplement 1, Nov 2009 Blood specimen (specimen) 12/30/2011 5:45 AM EST 12/30/2011 6:10 AM EST Narrative Resulting Agency Comment Spec In Lab Remigio Ceron MD CHEMISTRY ORDERABLES Performing Organization Address [facility] de Phone Number [facility] * (ABNORMAL) Triglyceride (12/30/2011 5:45 AM EST) Triglyceride 245(H) <=149 mg/dL [facility] Comment: Reference Range: Normal triglycerides: ??<150 mg/dL Borderline high: ??150-199 mg/dL High: ??200-499 mg/dL Very high: ??>si=936 mg/dL ELISEO 2001; 285(05):5312-7263 Blood specimen (specimen) 12/30/2011 5:45 AM EST 12/30/2011 6:10 AM EST Narrative Resulting Agency Comment Spec In Lab Remigio Ceron MD CHEMISTRY ORDERABLES Performing Organization Address [facility] de Phone Number [facility] * (ABNORMAL) HDL/Cholesterol Profile (12/30/2011 5:45 AM EST) Cholesterol, Total 170 <=199 mg/dL [facility] Comment: Recommendations of the NCEP Adult Treatment Panel for the following risk cutoff thresholds for the [place] population: Desirable: <200 mg/dL Borderline High: 200-239 mg/dL High: > or = 240 mg/dL HDL Cholesterol 36(L) >=40 mg/dL [facility] Comment: Reference range: ??Low HDL: ?? < 40 mg/dL ??Normal: ?40-60 mg/dL ??Desirable: > 60 mg/dL ELISEO 2001; 285(19):3688-5446 Cholesterol/HDL Ratio 4.7 ratio [facility] Comment: A Cholesterol to HDL ratio below 4:1 is desirable. ??Studies suggest that increased CAD risk occurs at ratios above 5 for females and above 6 for men. ? [place] [employer] Association ??(http://www.americanheart.org) ? Jazmine Int Med, 1994; 121:641 ? AM J Med, 1998; 105(1A):48S Blood specimen (specimen) 12/30/2011 5:45 AM EST 12/30/2011 6:10 AM EST Narrative Resulting Agency Comment Spec In Lab Remigio Ceron MD CHEMISTRY ORDERABLES Performing Organization Address [facility] de Phone Number [facility] * (ABNORMAL) LDL Cholesterol, Direct (12/30/2011 5:45 AM EST) LDL Cholesterol, Direct 110(H) <=99 mg/dL [facility] Comment: The National Cholesterol Education Program (NCEP) has set the following guidelines for LDL Cholesterol: Reference range: ?? Optimal: ?<100 mg/dL ?? Near Optimal/Above Optimal: ?? 100-129 mg/dL ?? Borderline high: ?130-159 mg/dL ?? High: ? 160-189 mg/dL ?? Very high: ?>gm=560 mg/dL ELISEO 2001: 285(19):0550-8774 Blood specimen (specimen) 12/30/2011 5:45 AM EST 12/30/2011 6:10 AM EST Narrative Resulting Agency Comment Spec In Lab Remigio Ceron MD CHEMISTRY ORDERABLES Performing Organization Address [facility] Co de Phone Number ARIAN NELSON * (ABNORMAL) Cardiac Enzymes (12/30/2011 5:45 AM EST) Troponin-T 0.05(H) <=0.03 ng/mL JILLIANBRIAN [employer] Comment: 0.03 ng/mL: Represents the 99th percentile upper reference limit for normals. >0.03 ng/mL: Elevated cardiac troponin T level indicative of myocardial damage. Diagnosis of acute, evolving or recent [place] requires a typical rise and gradual fall [...] consensus document of the Joint Society of Cardiology/[place] College [employer] Committee for the redefinition of myocardial infarction. Journal of the [place] College of [employer]iology 2000; 36: 959-969] Creatine Kinase 82 0 - 200 unit/L ARIAN [employer] Blood specimen (specimen) 12/30/2011 5:45 AM EST 12/30/2011 6:10 AM EST Narrative Resulting Agency Comment Spec In Lab Remigio Ceron MD CHEMISTRY ORDERABLES Performing Organization Address [facility] Co de Phone Number ARIAN [...] 11:29 PM EST) Plat estimate Normal ARIAN NELSON RBC Morphology Normal CERNE R OMAR Blood specimen (specimen) 12/29/2011 11:29 PM EST 12/29/2011 11:35 PM EST Narrative Resulting Agency Comment Spec In Lab Remigio Ceron MD HEMATOLOGY ORDERABLE S ARIAN ENLSON * (ABNORMAL) DIFFERENTIAL, AUTOMATED (12/29/2011 11:29 PM [...] damage. Diagnosis of acute, evolving or recent IL requires a typical rise and gradual fall [...] consensus document of the Joint Society of Cardiology/[place] College [employer]iology Committee for the redefinition of myocardial infarction. Journal of the [place] [employer] 2000; 36: 959-969] Creatine Kinase 86 0 - 200 unit/L CERNER ROBYENNIUM Blood specimen (specimen) 12/29/2011 11:29 PM EST 12/29/2011 11:34 PM EST Narrative Resulting Agency Comment Spec In Lab Remigio Ceron MD CHEMISTRY ORDERABLES Performing Organization Address [facility] Co de Phone Number ARIAN CERDAIUM * Prothrombin Time (12/29/2011 11:29 PM EST) Prothrombin Time 13.2 11.9 - 14.7 sec CERNER MILLENNIUM Comment: [facility] Transfusion Committee Guidelines: INR less than 2.0, PTT less than OR equal to 43.5 seconds, or Fibrinogen greater than or equal to 100 mg/dl indicate adequate procoagulant activity for hemostasis in patients without underlying bleeding disorders. International Normalization Ratio 1.0 0.9 - 1.1 CERBRIAN ROBYENNIUM Blood specimen (specimen) 12/29/2011 11:29 PM EST 12/29/2011 11:34 PM EST Narrative Resulting Agency Comment Spec In Lab Remigio Ceron MD HEMATOLOGY ORDERABLE S Performing Organization Address [place]/[facility] Co de Phone Number ARIAN [...] Ceron MD CHEMISTRY ORDERABLES Performing Organization Address City/[facility]/ZIP Co de Phone Number ARIAN CERDAIUM * TSH (12/29/2011 11:29 PM EST) Thyroid Stimulating Hormone 0.39 0.27 - 4.20 mcIU/mL CERNER ROBYENNIUM Blood specimen (specimen) 12/29/2011 11:29 PM EST 12/29/2011 11:34 PM EST Narrative Resulting Agency Comment Spec In Lab Remigio Ceron MD CHEMISTRY ORDERABLES ARIAN CERDAIUM * Phosphorus (12/29/2011 11:29 PM EST) Phosphorus 3.1 2.5 - 4.5 mg/dL CERNER ROBYENNIUM Blood specimen (specimen) 12/29/2011 [...] Lab Remigio Ceron MD CHEMISTRY ORDERABLES CERBRIAN MILLENNIUM * (ABNORMAL) CBC (with Diff) (12/29/2011 [...] Platelet 221 145 - 370 x10(3)/mc L [facility] RDW Standard Deviation 42.0 35.0 - 46.0 fL [facility] RDW coefficient of variation 13.0 10.9 - 14.4 % [facility] Mean Platelet Volume 10.5 9.0 - 12.0 fL [facility] Blood specimen (specimen) 12/29/2011 11:29 PM EST 12/29/2011 11:34 PM EST Narrative Resulting Agency Comment Spec In Lab Remigio Ceron MD HEMATOLOGY ORDERABLE S Performing Organization Address [facility] de Phone Number [facility] * APTT (12/29/2011 11:29 PM EST) Partial Thromboplastin Time 34 25 - 35 sec [facility] Comment: Recommended therapeutic PTT range for full dose unfractionated heparin is 80-114 seconds. Blood specimen (specimen) 12/29/2011 11:29 PM EST 12/29/2011 11:34 PM EST Narrative Resulting Agency Comment Spec In Lab Remigio Ceron MD HEMATOLOGY ORDERABLE S Performing Organization Address [facility] Phone Number [facility] * EKG 12 Lead (12/29/2011 11:13 PM EST) Ventricular rate 108 BPM MUSE SYSTEM Atrial Rate 108 BPM MUSE SYSTEM P-R Interval 150 ms MUSE SYSTEM QRS Duration 106 ms MUSE SYSTEM Q-T Interval 340 ms MUSE SYSTEM QTC Calculated (Bezet) 455 ms MUSE SYSTEM Calculated P [place] 19 degrees MUSE SYSTEM Calculated R [place] 31 degrees MUSE SYSTEM Calculated T [place] 51 degrees MUSE SYSTEM INTERPRETATION Sinus tachycardia Nonspecific T wave abnormality Abnormal ECG No previous ECGs available Confirmed by Madi FORD MD, Saulo ([id number]) on 12/30/2011 2:22:07 PM MUSE SYSTEM 12/29/2011 11:1 3 PM EST 12/30/2011 2:22 PM EST Remigio Ceron MD ECG ORDERABLES Performing Organization Address [facility] de Phone Number MUSE SYSTEM documented in this encounter Visit Diagnoses Diagnosis Chest pain- Primary Chest pain, unspecified HTN (hypertension) Unspecified essential hypertension Hyperlipidemia Other and unspecified hyperlipidemia Depression Depressive disorder, not elsewhere classified 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 Coronary artery disease Coronary atherosclerosis of unspecified type of vessel, cabazon or graft documented in this encounter Administered [...] dose on Wed01/04/12 at 2100, Until Discontinued, Isabella teeth., Routine Given 01/05/2012 9:00 AM EST [...] 2046, Until Wed12/29/11 at 2100, MATIAS GUTIERREZ: Vanessat Override heparin (porcine) injection 2,000-4,000 Units 2,000-4,000 [...] 145 sec X 2 - call warehouse distribution specialist See Bolus dosing guidance for aPTT values [...] 145 sec X 2 - call warehouse distribution specialist See Bolus dosing guidance for aPTT values [...] 145 sec X 2 - call warehouse distribution specialist See Bolus dosing guidance for aPTT values [...] BP less than 90 mmHg . Call warehouse distribution specialist for additional fluid orders: pager #[phone]. Rate/Dose Verify 01/05/2012 2:00 AM EST 125 [...] 0900 (Given - Provider: Michelle Chong RN) potassium chloride (K-DUR) tablet 40 mEq (COMPLETED) 40 mEq, Oral, ONCE, 1 dose, On Wed01/06/12 at 1700, Routine 170 (Given - Provider: Michelle Chong RN) potassium [...] Provider: Michelle Chong RN)1500 (Given - Provider: iMchelle Chong RN)2008 (Given - Provider: Hermila Dumas [...] on Wed01/05/12 at 1700, Until Discontinued, Routine 170 (Given - Provider: Michelle Chong RN) 170 (Given - Provider: Michelle Chong RN) sodium chloride 0.9 % flush 5 mL (CANCELED) 5 mL, Intravenous, EVERY 8 HOURS, First dose on Wed01/05/12 at 1915, Until Discontinued 314 (Given - Provider: Hermila Dumas RN)1114 (Given - Provider: Michelle Chong RN)2009 (Given [...] For pain when taking by mouth, Routine 2057 (Given - Provider: Hermila Dumas RN)0305 (Given [...] Routine documented in this encounter Care Teams Diesel Service Technician Relationship Specialty Start Date End Date Patric Al MD PCP - General 12/29/11 02/26/19 documented as of this encounter
--- OUTSIDE RECORDS SUMMARY | 2024-10-20 12:54 | XMS_ITS | Encounter Summary ---
Author Organization [facility] [place] [address] Care Team Providers Care In Class Special Education Teacher Name Role Phone Guanako Gusman MD Primary Care Provider [phone] Encounter Details Date Type Department Care Team (Late st Contact Info) Description 01/04/2012 Orders [place] [phone] Unknown None Social History Tobacco Use Types [...] 1:00 PM EST Appointment XRay at [address] [place] [phone] Isabela Hayward FIT MODEL [facility] [place] [address] 11/09/2024 1:30 PM EST Office Visit [place] [phone] Isabela Hayward APRN [facility] [place] [address] 11/10/2024 10:00 AM EST Office Visit [place] [phone] Dai Whitamn APRN 11/21/2024 2:15 PM EST Office Visit [place] [phone] Dayanara Grover MD [facility] DR ENDOCRINOLOGY DEPT [place] [phone] documented as of this encounter Procedures Procedure Name Priority Date/Time Associated Diagnosis Comments TRANSESOPHAGEAL ECHOCARDIOGRAM (HELEN) Routine 01/04/2012 documented in this encounter Results * TRANSESOPHAGEAL ECHOCARDIOGRAM (HELEN) (01/04/2012) Anatomical Region Laterality Modality Other 01/04/2012 Narrative 01/04/2012 3:49 PM EST Procedure: ? Transesophageal Echocardiogram Patient: ? QUIANA AUSTIN P ?(Age): () ? Med Rec#: ?[id number] ? Sex: ? Site Loc: ? Ht / Wt: ??(cm)/(kg) ? Pt. Loc: ?BSA: ? Study Date: ?01/04/2012 ? Pt. Type: Tape: ? Referring: BASILIO Referring: Alfonso Morales Reading: Rodrigo Montgomery ([id number]) Performing: Rodrigo Montgomery ([id number]) Administrative Court Justice: KEVIN Diagnosis:CPT Code(s): Indication(s):Rhythm: SUMMARY: 1. Intraoperative [...] ? Mid-Inferior ?Normal ? Mid-Inferoseptal ?Normal ? Hurricane-Septal ? Normal ? Hurricane-Anterior ? Normal ? Hurricane-Lateral ?Normal ? Hurricane-Inferior ? Normal ? Hurricane-Tip ?Normal ? Chambers ?Value ?Units (Range) ? LV EF Est ? 60 ? % (55 to 80) ? This report has been electronically signed by: Rodrigo Montgomery MD ? 01/04/2012 15:48:22 Images reviewed and interpretation verified [facility] Cardiac Ultrasound Laboratory Procedure Note Unknown - 01/04/2012 Procedure: Transesophageal Echocardiogram Patient: QUIANA MILLIGAN(Age): () Med Rec#: [id number] Sex: Site Loc: Ht / Wt: (cm)/(kg) Pt. Loc: BSA: Study Date: 01/04/2012 Pt. Type: Tape: Referring: BASILIO Referring: Alfonso Morales Reading: Rodrigo Montgomery [id number]) Performing: Rodrigo Montgomery ([id number]) Administrative Court Justice: KEVIN Diagnosis:CPT Code(s): Indication(s):Rhythm: SUMMARY: 1. Intraoperative [...] Normal Mid-Posterolateral Normal Mid-Inferior Normal Mid-Inferoseptal Normal Hurricane-Septal Normal Hurricane-Anterior Normal Hurricane-Lateral Normal Hurricane-Inferior Normal Hurricane-Tip Normal Chambers Value Units (Range) LV EF Est 60 % (55 to 80) This report has been electronically signed by: Rodrigo Montgomery MD 01/04/2012 15:48:22 Images reviewed and interpretation verified [facility] Cardiac Ultrasound Laboratory Unknown ECHO ORDERABLES documented in this encounter Visit Diagnoses Not on filedocumented in this encounter Care Teams In Class Special Education Teacher Relationship Specialty Start Date End Date Guanako Gusman MD PCP - General 12/29/11 02/26/19 documented as of this encounter
--- OUTSIDE RECORDS SUMMARY | 2024-10-20 12:55 | XMS_ITS | Encounter Summary ---
Author Organization [facility] Address [facility] [place] [address] Care Team Providers Care Nuclear Licensing Engineer Name Role Phone Patric Al MD Primary Care Provider Encounter Details Date Type Department Care Team (Late st Contact Info) Description 01/04/2012 12:18 PM EST - 01/04/2012 4:46 PM EST Surgery [place] [phone] Inna Tovar MD [facility] [place] [address] ENDOSCOPIC HARVEST VEIN(S) FOR CABG (WRVU 0.31) [...] APRN - 01/08/2012 12:11 PM EST Geovanna Dxion . 1975 [id number] New Diagnosis of Pre-Diabetes For discharge should [...] Some considerations about using metformin in Prediabetics: [place] Diabetes Prevention Program (DPP) as well as other minor studies and meta-analyses has convincingly demonstrated the efficacy of metformin in this patient group [pre-diabetics]. In addition, results of the 10 year DPP follow up have recently been published, demonstrating the detention safety and sustainability of metformin treatment benefits [...] - will be starting Cardiac rehab at [facility], encouraged to increase physical activity as advised by cardiologists Weight Loss - A 7% weight loss could significantly improve his BG control Tobacco cessation - There is growing evidence that cigarette smokers are more prone than the general population to develop T2DM. Increase in insulin resistance with tobacco use. Darcie Lange APRN [facility] Endocrinology Diabetes Management [phone] * Patient Instructions* Ricky Graham PA - [...] Anne Tovar and/or the Cardiothoracic Surgery Physician Bandmill Operator Team may be reached at . Activity [...] Dr. Inna Tovar. You may use a [place] or treadmill but avoid any pulling [...] friends, go to a movie, go to congregational, etc. Heavy activities: No hunting, skiing, jogging, [...] would be to continue to go [place]. He has quit this way before and [...] only 10% of those who quit [place] are able to be successful. The calculated [...] in agreement with a referral to the [place] Quitnetwork and a referral was faxed to them on his behalf. Patient has been advised to contact Mrs. MartinesRESHMA with any questions or if he wants further support for this quit attempt. A follow up Clinic appointment will been made for 4 weeks when he returns to see Dr. Tovar for his post op surgery check up. He is open to a phone call from me in 1-2 weeks as well. Vibha RESHMA Martines documented in this encounter Medications at Time [...] given to patient. Discharge summary faxed to [facility] and receipt confirmed via phone. Patient discharged [...] outpatient basis Equipment needs: none ADEBAYO MCGARRY, ADVANCED PRACTICE REGISTERED NURSE Pager: [phone] Physical Therapy Rehabilitation Department * Michelle Chong [...] services. Patient would like VNA services through [facility]. PHONE: [phone] FAX: [phone]. Referral made via E-discharge. Please see home care orders that must be included in discharge summary for VN services to start. Patient has glucometer and supplies at bedside. Pt. Denies any further needs from CRC. Pt. Gets scripts through [place] Medicaid with co-pay. He denies any concerns related to co-pay. * Darcie Lange, LOCK STITCH CHANNELER - 01/07/2012 9:57 AM EST Geovanna Dixon . 1975 [id number] PATRIC AL MD Follow Up Diabetes Consult [...] Some considerations about using metformin in Prediabetics: [place] Diabetes Prevention Program (DPP) as well as other minor studies and meta-analyses has convincingly demonstrated the efficacy of metformin in this patient group [pre-diabetics]. In addition, results of the 10 year DPP follow up have recently been published, demonstrating the detention safety and sustainability of metformin treatment benefits [...] - will be starting Cardiac rehab at [facility], encouraged to increase physical activity as [...] [facility] End[facility]ology Diabetes Management [phone] Pager [phone] This case was discussed with Dr. Christina Brody. 25 min time spent in patient care with 20 counseling, seeing patient, changing orders and discussion with the patient and the primary team as well as nursing. * Inna Tovar MD - 01/07/2012 9:39 AM EST Cardiac Surgery Progress Note: ID: [id number] 36/M POD #[address] Tovar [...] results found for this basename: phart, po2art, [id number] Assessment/Plan: Pathway. 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 Which cigarette would [...] would be to continue to go [place]. He has quit this way before and it lasted several years, so he has a history of being successful with this method. He also pointed out that his father and an uncle quit (for now over 10 years) by going [place]. I told him that it is difficult to recommend a quit method that has a 90% failure rate, but that said, it is his choice and that I would provide him with a toolkit of information so that he will be as knowledgeable as possible about nicotineaddiction and how to stay quit. And we do know that 10% of those who quit [place] are able to be successful. I calculated [...] now has the Quit line number for [place] and has also been encouraged to use this if needed for support. In addition he was in agreement with a referral to the [place] Quitnetworkand I have FAXed a referral to [...] 60 minutes PATRIC AL MD * Ariela Cornejo, ACOSTA - 01/06/2012 3:51 PM EST Nutrition Services [...] Note Patient Name: Geovanna Dixon Jr. : [id number] MR#: [id number] Admitted: 12/29/2011 Hospital Day 8 days Problem [...] INNA TOVAR at [facility] Social History: Patient lives with [...] minutes brief evaluation KAREEN MENDOZA, PT Pager: [phone] Physical Therapy Rehabilitation Department * Camille Angulo [...] A: medical plan still evolving. P: This creative services writer or colleague from the Office of [...] Geovanna Llanos Zack Heart SUMMARY: Geovanna Dixon Jr. is a [...] diaphoretic. No pallor. LABS: Recent Labs Basename 2/27/12 0440 01/03/12 0615 01/02/12 0602 12/30/11 1625 [...] FULL CODE Paola Akers PGY 1 Pager [phone] Attending Addendum: I spoke with the patient and his family briefly this am. I agree with the principal findings. The impression and plan incorporate my input. No contraindication to surgery today. Sarthak Pollard MD [facility] pager [phone] * Sarthak Pollard MD - 01/03/2012 11:08 [...] risk of aggravating CAD. Sarthak Pollard MD [facility] pager [phone] * Bal John MD - 01/02/2012 3:10 [...] Cristina Ambriz MD PGY1, Internal Medicine Pager [phone] 01/02/2012 Attending Addendum: I have interviewed and examined the patient. I agree with the principal findings. The impression and plan incorporate my input. As above, doing well. Will keep on heparin until surgery. No angina, HF, bleeding, or evidence of HIT. Sarthak Pollard MD [facility] pager [phone] * Inna Tovar MD - 01/01/2012 3:17 PM EST Please see Dr. Major's note from 12/31/11 for full details. Briefly, Mr. Dixon developed unstable angina and ruled in for AK. Cath shows severe 3 vessel disease. Echo [...] mg BID Paola Akers PGY 1 Pager [phone] Attending Addendum: I have interviewed and examined the patient. I agree with the principal findings. The impression and plan incorporate my input. He is disappointed that his surgery has been postponed until Wednesday butunderstands. He remains cp free. I've reviewed his angiograms and believe he needs to stay on heparin until surgery. All questions answered. Sarthak Pollard MD [facility] pager [phone] * Andi Rene MD - 12/31/2011 5:20 [...] for chest pain as a transfer from [facility] - Cardiac cath yesterday showed significant [...] mg BID Paola Akers PGY 1 Pager [phone] Cardiology Attending Progress Note Addendum: I have [...] would like to attend cardiac rehab at [facility] in [facility]. We will meet him again after [...] off unit to XRAY with transpo & DITCH INSPECTOR. documented in this encounter H&P Notes * Jeannine Pichardo RN - 01/05/2012 12:44 PM EST [facility] , report to Camilla. * Inna Tovar MD - 01/04/2012 6:41 AM EST The patient's history and physical exam have been reviewed and completed. There has been no interval change from that of the pre-operative history and physical exam done within the last 30 days. Stable overnight, no chest pain. All questions answered. OK to proceed with surgery. * vEer Major MD - 12/30/2011 3:15 PM EST [...] alleviate the pain. He eventually presented to [facility] on Wednesday wherehe had elevated troponins [...] Lives on social security in house in [facility] with two children (18 and 4, and one step child) Active pack per day smoker (27pack year history) No etoh No drugs Enjoys riding motorcycles and hunting He is NOT a evangelical FHx: Heart disease on both sides of the family Father's side with multiple uncles with AK's, one at age of 40 Mother's side with uncle at age 50 from [place] Diabetes in mother ROS: Positive headache, nausea [...] loss were emphasized as they relate to detention patency of his grafts. He should receive smoking cessation counseling donya. One post op consideration will be vent wean and respiratory status given likely underlying CAMILLA and his known narcolepsy. Pre op orders written, heparin gtt to stop weapons and tactics instructor to OR. Pt seen and interviewed with [...] [facility] from [facility] for evaluation of [...] history (both paternal grandparents passing away from [facility] and paternal aunts/uncles with histories of [...] FULL Provider: REMIGIO CERON MD Pager #: [phone] documented in this encounter Procedure Notes * Provider, Scanning - 01/10/2012 1:46 PM ESTAssociated Order(s): SCAN DOC: SENIOR ASSET MANAGER * Provider, Scanning - 01/10/2012 1:46 PM [...] - 01/06/2012 3:45 PM EST Geovanna Dixon JrFlorencio 1975 [id number] Inpatient Endocrinology Glucose Management Consult Date of Consultation: 01/06/2012 Place of Consultation: [facility] Consult Requested by: Dr. Tovar, [place] Surgery Reason for Consultation: Geovanna Dixon Jr. is a 36 y.o. male who was admitted on 12/29/2011 for the diagnosis of CAD now s/p CABG x2 with Dr. Tovar, POD #2. We are asked to see him to assist with diabetes management and to provide a review of his detention diabetes plan. Diabetes History: Geovanna Dixon Jr. [...] considerations about using metformin in Prediabetics: ?? [place] Diabetes Prevention Program (DPP) as well as other minor studies and meta-analyses hasconvincingly demonstrated the efficacy of metformin in this patient group [pre-diabetics]. In addition, results of the 10 year DPP follow up have recently been published, demonstrating the detention safety and sustainability of metformin treatment benefits [...] - will be starting Cardiac rehab at [facility], encouraged to increase physical activity as [...] [facility] Endocrinology Diabetes Management [phone] Pager [phone] This case was discussed with Dr. Christina [...] alleviate the pain. He eventually presented to [facility] on Wednesday where he had elevated [...] Course: Geovanna Dixon Jr. was admitted to [facility] on 12/29/2011 to the [...] Medications: Geovanna Dixon Jr. Home Medication Instructions CRAIG:[id number] Printed on:01/08/12 0985 Medication Information simvastatin (ZOCOR) 20 mg tablet [...] Anne Tovar and/or the Cardiothoracic Surgery Physician Bandmill Operator Team may be reached at . Activity [...] Dr. Inna Tovar. You may use a [place] or treadmill but avoid any pulling [...] friends, go to a movie, go to congregational, etc. Heavy activities: No hunting, skiing, jogging, snow shoveling, snowmobiling, lawn mowing, swimming,golf or tennis until after your return appointment with the surgeon. Do not ride motorcycles, ATKiromic'stractors or horses. Avoid the use of a [...] surgery. TOBACCO TREATMENT PLAN Geovanna Llanos Zack Ordoñez. has a Fagerstrom Score of 5, indicating [...] would be to continue to go [place]. He has quit this way before and [...] only 10% of those who quit [place] are able to be successful. The calculated [...] now has the Quit line number for [place] and has also been encouraged to use this ifneeded for support. In addition he was in agreement with a referral to the [place] Quitnetwork and a referral was faxed to [...] Some considerations about using metformin in Prediabetics: [place] Diabetes Prevention Program (DPP) as well as other minor studies and meta-analyses has convincingly demonstrated the efficacy of metformin in this patient group [pre-diabetics]. In addition, results of the 10 year DPP follow up have recently been published, demonstrating the detention safety and sustainability of metformin treatment benefits [...] - will be starting Cardiac rehab at [facility], encouraged to increase physical activity as advised by cardiologists Weight Loss - A 7% weight loss could significantly improve his BG control Tobacco cessation - There is growing evidence that cigarette smokers are more prone than the general population to develop T2DM. Increase in insulin resistance with tobacco use. Darcie Lange APRN [facility] Endocrinology Diabetes Management [phone] Medications: Take only those medications listed on [...] should resume a low fat, low cholesterol, [place] Heart Association Diet. Driving: No driving for [...] Arrangements for VNA/home care: PATIENT'S LOCATION: Geovanna Viet Dixon Jr. [address] [place] [address] There is no home phone number on file. Telephone Information: In discussion with the attending physician, it is certified that this patient is under their care and that they, or a nurse practitioner, clinical nurse specialist or physician's licensed physical therapist assistant who is working directly with them, [...] for services as follows: HOME HEALTH AGENCY: [facility]. PHONE: [phone] FAX: [phone] RN orders: Cardiopulmonary assessment, incisional assessment, assess [...] issues please call the Cardiac SurgeryOffice at [phone] FOR MEDICARE ONLY: (please delete this section if not Medicare) In discussion with the attending physician, it is certified that the clinical findings support thatthis patient is homebound (i.e. absences from home require considerable and taxing effort and are for medical reasons or nondenominational services of infrequently or of short duration [...] nurse practitioner, clinical nurse specialist or physician's licensed physical therapist assistant who is working directly with them, [...] effort and are for medical reasons or nondenominational services of infrequently or of short duration when for other reasons) Please note that any additional orders needs or changes will need to be obtained from this patient's PCP: PATRIC AL MD [phone] All VNA agencies which cover the area of patient's residence have been reviewed, either verbally feli writing, and patient/family have chosen the indicated home health care agency for home services. Comments: Questions: Responses: Agency name and contact information [facility] Patient location post discharge home What services are requested Start date 01/10/2012 Responsible MD post discharge contact info PCP RN to remove chest tube sutures on or after 01/13/12. Signed: Ricky Graham PA-C [facility] Section of Cardiothoracic Surgery Date: 01/08/12 CC: MD [facility] [address] [place] [address] * Op Note - Inna Tovar MD - 01/04/2012 3:55 PM EST [facility] Operative Note Patient Name: Geovanna Dixon Jr. : [id number] MR#: [id number] Case Date: 01/04/2012 Surgeon: Surgeon(s) and Role: [...] enlarged. There was diffuse disease in all [place] vessels. The [place] and vein were of excellent quality. The lungs had early emphysematous changes. Procedure Details: The patient was brought to the operating room and given general anesthesia. A [place] L[place]-Haley catheter, radial arterial line, and Mendez catheter [...] for adequate hemostasis, two #28 [place] chest tubes were placed and brought out [...] Note Patient Name: Geovanna Dixon Jr. : [id number] MR#: [id number] Case Date: 01/04/2012 Surgeon: Surgeon(s) and Role: [...] Htn, Hld and nicotine dependence transferred from [facility] for evaluation of left [...] likely. (Leukocytosis may be r/t stress of [place].) Bacteremia as a complication of his cath, [...] 1:00 PM EST Appointment XRay at [address] [place] [phone] Isabela Hayward APRN [facility] [place] [address] 11/09/2024 1:30 PM EST Office Visit Infectious Disease at [facility] [place] [address] Isabela Hayward, RESHMA [facility] [place] [address] 11/10/2024 10:00 AM EST Office Visit [place] [phone] J Carlos Daicaprice Cunningham APRN 11/21/2024 2:15 PM EST Office Visit [place] [address] Dayanara Grover MD [facility] [place] [address] Scheduled Referrals Name Type Priority Associated Diagnoses Orde r Schedule REFERRAL TO CARDIAC REHAB Outpatient Referral Routine Chest pain Ordered: 01/08/2012 documented as of this encounter Procedures Procedure Name Priority Date/Time Associated Diagnosis Comments CARDIAC CATHETERIZATION Routine 01/11/20 12 11:04 AM EST LAB SCAN 01/10/2012 1:46 PM EST SENIOR ASSET MANAGER SCAN 01/10/2012 1:46 PM EST CARDIAC CATH [...] 01/05/20 12 2:00 AM EST CARDIAC ENZYMES ([facility]) Routine 01/05/2012 2:00 AM EST CREATININE Routine [...] (Bezet) 453 ms MUSE SYSTEM Calculated P [place] 41 degrees MUSE SYSTEM Calculated R [place] 25 degrees MUSE SYSTEM Calculated T [place] 74 degrees MUSE SYSTEM INTERPRETATION Sinus tachycardia [...] SCAN EXT O RDR/RSLT * SCAN DOC: SENIOR ASSET MANAGER (01/10/2012 1:46 PM EST) Anatomical Region Laterality Modality Other Narrative 01/11/2012 8:32 AM EST Procedure Note Provider, Scanning - 01/10/2012 1:46 PM EST Scanning Provider MEDIA MGR SCAN EXT O RDR/RSLT * POCT GLUCOSE LAB USE ONLY (01/08/2012 12:00 PM EST) Glucose, POC 106 60 - 199 mg/dL [facility] Comment: Supplemental ranges: <110 mg/dL before meals <200 mg/dL all other times of the day Blood specimen (specimen) 01/08/2012 12:00 PM EST 01/08/2012 12:00 PM EST Andi Rene MD POINT OF CARE TEST Stephanie VO Performing Organization Address [facility] de Phone Number [facility] * Potassium (01/08/2012 10:05 AM EST) Potassium 4.2 3.5 - 5.0 mmol/L [facility] Comment: Please note: ??Patients with WBC >100,000 may have falsely elevated Potassium levels. ??For accurate Potassium quantification in these patients send serum separator tube (gold top) for subsequent determinations. ??Contact the Clinical Chemistry Laboratory if there are any questions. Blood specimen (specimen) 01/08/2012 10:05 AM EST 01/08/2012 10:27 AM EST Narrative Resulting Agency Comment Spec In Lab Inan Tovar MD CHEMISTRY ORDERABLES Performing Organization Address [facility] Phone Number [facility] * POCT GLUCOSE LAB USE ONLY (01/08/2012 7:21 AM EST) Glucose, POC 144 60 - 199 mg/dL [facility] Comment: Supplemental ranges: <110 mg/dL before meals <200 mg/dL all other times of the day Blood specimen (specimen) 01/08/2012 7:21 AM EST 01/08/2012 7:21 AM EST Andi Rene MD POINT OF CARE TEST Stephanie VO Performing Organization Address [facility] de Phone Number [facility] * POCT GLUCOSE LAB USE ONLY (01/07/2012 8:43 PM EST) Glucose, POC 179 60 - 199 mg/dL [facility] Comment: Supplemental ranges: <110 mg/dL before meals <200 mg/dL all other times of the day Blood specimen (specimen) 01/07/2012 8:43 PM EST 01/07/2012 8:43 PM EST Andi Rene MD POINT OF CARE TEST O RDERABLES Performing Organization Address [facility] de Phone Number [facility] * POCT GLUCOSE LAB USE ONLY (01/07/2012 4:47 PM EST) Glucose, POC 128 60 - 199 mg/dL [facility] Comment: Supplemental ranges: <110 mg/dL before meals <200 mg/dL all other times of the day Blood specimen (specimen) 01/07/2012 4:47 PM EST 01/07/2012 4:47 PM EST Andi Rene MD POINT OF CARE TEST O GILDA Performing Organization Address [facility] Phone Number [facility] * Potassium (01/07/2012 11:42 AM EST) Potassium 3.6 3.5 - 5.0 mmol/L [facility] Comment: Please note: ??Patients with WBC >100,000 [...] Tovar MD CHEMISTRY ORDERABLES Performing Organization Address [facility] Phone Number [facility] * POCT GLUCOSE LAB USE ONLY (01/07/2012 11:41 AM EST) Glucose, POC 114 60 - 199 mg/dL [facility] Comment: Supplemental ranges: <110 mg/dL before meals [...] In Lab Sarthak Pollard MD CHEMISTRY ORDERABLES [facility] [employer] * (ABNORMAL) CBC (with Diff) (01/07/2012 4:11 [...] MD HEMATOLOGY ORDERABLE S Performing Organization Address [facility] Co de Phone Number [facility] * Microalbumin, urine, random (01/06/2012 9:03 PM EST) Creatinine, Urine 136 mg/dL CE [facility]NER [facility] Albumin, Urine 14.4 mg/L CERNE R M[facility]ENNI[facility] Albumin / Creatinin Ratio, Urine 11 mcg/mg Cr [facility] MILL[facility] Comment: Reference Range* Random collection (mcg/mg creatinine) Normal ?<30 Microalbuminuria ?? 30 - 300 Clinical Albuminuria ?? >300 *[place] Diabetes Association. Diabetic Nephropathy. Diabetes Care 1997;(Suppl 1):S24-S27 Exercise within 24 hour, infection, fever, CHF, marked hyperglycemia, and marked hypertension may elevate urinary albumin excretion over baseline values. Urine specimen (specimen) 01/06/2012 9:03 PM EST 01/06/2012 10:28 PM EST Narrative Resulting Agency Comment Spec In Lab Inna Tovar MD URINE ORDERABLES Performing Organization Address [facility] Co de Phone Number [facility] * POCT GLUCOSE LAB USE ONLY (01/06/2012 7:46 PM EST) Glucose, POC 127 60 - 199 mg/dL [facility] Comment: Supplemental ranges: <110 mg/dL before meals <200 mg/dL all other times of the day Blood specimen (specimen) 01/06/2012 7:46 PM EST 01/06/2012 7:46 PM EST Andi Rene MD POINT OF CARE TEST O GILDA Performing Organization Address [facility] Phone Number [facility] * POCT GLUCOSE LAB USE ONLY (01/06/2012 4:24 PM EST) Glucose, POC 131 60 - 199 mg/dL [facility] Comment: Supplemental ranges: <110 mg/dL before meals <200 mg/dL all other times of the day Blood specimen (specimen) 01/06/2012 4:24 PM EST 01/06/2012 4:24 PM EST Andi Rene MD POINT OF CARE TEST O GILDA Performing Organization Address [facility] Phone Number [facility] * POCT GLUCOSE LAB USE ONLY (01/06/2012 12:06 PM EST) Glucose, POC 160 60 - 199 mg/dL [facility] Comment: Supplemental ranges: <110 mg/dL before meals <200 mg/dL all other times of the day Blood specimen (specimen) 01/06/2012 12:06 PM EST 01/06/2012 12:06 PM EST Andi Rene MD POINT OF CARE TEST O GILDA Performing Organization Address [facility] Phone Number [facility] * Potassium (01/06/2012 9:59 AM EST) Potassium 4.0 3.5 - 5.0 mmol/L [facility] Comment: Please note: ??Patients with WBC >100,000 [...] Tovar MD CHEMISTRY ORDERABLES Performing Organization Address [facility]/ZIP Co de Phone Number [facility] * POCT GLUCOSE LAB USE ONLY (01/06/2012 6:53 AM EST) Glucose, POC 168 60 - 199 mg/dL [facility] Comment: Supplemental ranges: <110 mg/dL before meals <200 mg/dL all other times of the day Blood specimen (specimen) 01/06/2012 6:53 AM EST 01/06/2012 6:53 AM EST Andi Rene MD POINT OF CARE TEST O GILDA Performing Organization Address [facility] Co de Phone Number [facility] * POCT GLUCOSE LAB USE ONLY (01/06/2012 5:03 AM EST) Glucose, POC 147 60 - 199 mg/dL [facility] Comment: Supplemental ranges: <110 mg/dL before meals <200 mg/dL all other times of the day Blood specimen (specimen) 01/06/2012 5:03 AM EST 01/06/2012 5:03 AM EST Andi Rene MD POINT OF CARE TEST O GILDA Performing Organization Address [facility] Phone Number [facility] * POCT GLUCOSE LAB USE ONLY (01/06/2012 3:16 AM EST) Glucose, POC 126 60 - 199 mg/dL [facility] Comment: Supplemental ranges: <110 mg/dL before meals <200 mg/dL all other times of the day Blood specimen (specimen) 01/06/2012 3:16 AM EST 01/06/2012 3:16 AM EST Andi Rene MD POINT OF CARE TEST O GILDA Performing Organization Address [facility] de Phone Number [facility] * POCT GLUCOSE LAB USE ONLY (01/06/2012 1:12 AM EST) Glucose, POC 135 60 - 199 mg/dL [facility] Comment: Supplemental ranges: <110 mg/dL before meals <200 mg/dL all other times of the day Blood specimen (specimen) 01/06/2012 1:12 AM EST 01/06/2012 1:12 AM EST Andi Rene MD POINT OF CARE TEST O GILDA Performing Organization Address [facility] de Phone Number [facility] * POCT GLUCOSE LAB USE ONLY (01/05/2012 11:52 PM EST) Glucose, POC 133 60 - 199 mg/dL [facility] Comment: Supplemental ranges: <110 mg/dL before meals <200 mg/dL all other times of the day Blood specimen (specimen) 01/05/2012 11:52 PM EST 01/05/2012 11:52 PM EST Andi Rene MD POINT OF CARE TEST O GILDA Performing Organization Address [facility] de Phone Number [facility] * POCT GLUCOSE LAB USE ONLY (01/05/2012 10:54 PM EST) Glucose, POC 130 60 - 199 mg/dL [facility] Comment: Supplemental ranges: <110 mg/dL before meals <200 mg/dL all other times of the day Blood specimen (specimen) 01/05/2012 10:54 PM EST 01/05/2012 10:54 PM EST Andi Rene MD POINT OF CARE TEST O GILDA Performing Organization Address [facility] de Phone Number [facility] * POCT GLUCOSE LAB USE ONLY (01/05/2012 9:51 PM EST) Glucose, POC 132 60 - 199 mg/dL [facility] Comment: Supplemental ranges: <110 mg/dL before meals <200 mg/dL all other times of the day Blood specimen (specimen) 01/05/2012 9:51 PM EST 01/05/2012 9:51 PM EST Andi Rene MD POINT OF CARE TEST O RDERABLES Performing Organization Address [facility] Co de Phone Number [facility] * POCT GLUCOSE LAB USE ONLY (01/05/2012 8:50 PM EST) Glucose, POC 126 60 - 199 mg/dL [facility] Comment: Supplemental ranges: <110 mg/dL before meals <200 mg/dL all other times of the day Blood specimen (specimen) 01/05/2012 8:50 PM EST 01/05/2012 8:50 PM EST Andi Rene MD POINT OF CARE TEST O RDERABLES Performing Organization Address [facility] de Phone Number [facility] * POCT GLUCOSE LAB USE ONLY (01/05/2012 8:07 PM EST) Glucose, POC 126 60 - 199 mg/dL [facility] Comment: Supplemental ranges: <110 mg/dL before meals <200 mg/dL all other times of the day Blood specimen (specimen) 01/05/2012 8:07 PM EST 01/05/2012 8:07 PM EST Andi Rene MD POINT OF CARE TEST O RDERABLES Performing Organization Address [facility] Co de Phone Number [facility] * POCT GLUCOSE LAB USE ONLY (01/05/2012 6:57 PM EST) Glucose, POC 137 60 - 199 mg/dL [facility] Comment: Supplemental ranges: <110 mg/dL before meals <200 mg/dL all other times of the day Blood specimen (specimen) 01/05/2012 6:57 PM EST 01/05/2012 6:57 PM EST Andi Rene MD POINT OF CARE TEST O RDERABLES Performing Organization Address City/[facility]/ZIP Co de Phone Number [facility] * POCT GLUCOSE LAB USE ONLY (01/05/2012 4:59 PM EST) Glucose, POC 147 60 - 199 mg/dL [facility] Comment: Supplemental ranges: <110 mg/dL before meals <200 mg/dL all other times of the day Blood specimen (specimen) 01/05/2012 4:59 PM EST 01/05/2012 4:59 PM EST Andi Rene MD POINT OF CARE TEST O GILDA Performing Organization Address [facility] de Phone Number [facility] * POCT GLUCOSE LAB USE ONLY (01/05/2012 1:05 PM EST) Glucose, POC 154 60 - 199 mg/dL [facility] Comment: Supplemental ranges: <110 mg/dL before meals <200 mg/dL all other times of the day Blood specimen (specimen) 01/05/2012 1:05 PM EST 01/05/2012 1:05 PM EST Andi Rene MD POINT OF CARE TEST O GILDA Performing Organization Address [facility] de Phone Number [facility] * POCT GLUCOSE LAB USE ONLY (01/05/2012 12:42 PM EST) Glucose, POC 148 60 - 199 mg/dL [facility] Comment: Supplemental ranges: <110 mg/dL before meals <200 mg/dL all other times of the day Blood specimen (specimen) 01/05/2012 12:42 PM EST 01/05/2012 12:42 PM EST Andi Rene MD POINT OF CARE TEST O GILDA Performing Organization Address [facility] de Phone Number [facility] * POCT GLUCOSE LAB USE ONLY (01/05/2012 9:54 AM EST) Glucose, POC 145 60 - 199 mg/dL [facility] Comment: Supplemental ranges: <110 mg/dL before meals <200 mg/dL all other times of the day Blood specimen (specimen) 01/05/2012 9:54 AM EST 01/05/2012 9:54 AM EST Andi Rene MD POINT OF CARE TEST O GILDA Performing Organization Address [facility] de Phone Number [facility] * POCT GLUCOSE LAB USE ONLY (01/05/2012 8:00 AM EST) Glucose, POC 168 60 - 199 mg/dL [facility] Comment: Supplemental ranges: <110 mg/dL before meals <200 mg/dL all other times of the day Blood specimen (specimen) 01/05/2012 8:00 AM EST 01/05/2012 8:00 AM EST Andi Rene MD POINT OF CARE TEST O GILDA Performing Organization Address [facility] Phone Number [facility] * POCT GLUCOSE LAB USE ONLY (01/05/2012 5:58 AM EST) Glucose, POC 164 60 - 199 mg/dL [facility] Comment: Supplemental ranges: <110 mg/dL before meals <200 mg/dL all other times of the day Blood specimen (specimen) 01/05/2012 5:58 AM EST 01/05/2012 5:58 AM EST Andi Rene MD POINT OF CARE TEST O GILDA Performing Organization Address [facility] de Phone Number [facility] * POCT GLUCOSE LAB USE ONLY (01/05/2012 4:12 AM EST) Glucose, POC 148 60 - 199 mg/dL [facility] Comment: Supplemental ranges: <110 mg/dL before meals <200 mg/dL all other times of the day Blood specimen (specimen) 01/05/2012 4:12 AM EST 01/05/2012 4:12 AM EST Andi Rene MD POINT OF CARE TEST O RDERAHERNANDEZ [facility] * POCT GLUCOSE LAB USE ONLY (01/05/2012 2:05 AM EST) Glucose, POC 148 60 - 199 mg/dL [facility] Comment: Supplemental ranges: <110 mg/dL before meals <200 mg/dL all other times of the day Blood specimen (specimen) 01/05/2012 2:05 AM EST 01/05/2012 2:05 AM EST Andi Melchor Anju DE POINT OF CARE TEST O RDERAHERNANDEZ Performing Organization Address [facility]/ZIP Co de Phone Number [facility] * (ABNORMAL) DIFFERENTIAL, AUTOMATED (01/05/2012 2:00 AM EST) Pathologist [facility] Neutrophil % 79.0(H) 34.0 - 71.0 % [...] Absolute 0.97(H) 0.00 - 0.05 x10(3)/mc L [facility] [employer] [facility] Blood specimen (specimen) 01/05/2012 2:00 AM EST 01/05/2012 2:11 AM EST Sarthak Pollard MD HEMATOLOGY ORDERABLE S Performing Organization Address [facility] Co de Phone Number [facility] [employer] [facility] * (ABNORMAL) Cardiac Enzymes (01/05/2012 2:00 AM EST) Troponin-T 0.39(H) <=0.03 ng/mL [facility] [employer] [facility] Comment: 0.03 ng/mL: Represents the 99th percentile upper reference limit for normals. >0.03 ng/mL: Elevated cardiac troponin T level indicative of myocardial damage. Diagnosis of acute, evolving or recent AK requires a typical rise and gradual fall [...] consensus document of the Joint Society of Cardiology/Swiss College of Cardiology Committee for the redefinition of myocardial infarction. Journal of the [place] College of Cardiology 2000; 36: 959-969] Creatine Kinase 436(H) 0 - 200 unit/L [facility] [employer] Blood specimen (specimen) 01/05/2012 2:00 AM EST 01/05/2012 2:11 AM EST Narrative Resulting Agency Comment Spec In Lab Sarthak Pollard MD CHEMISTRY ORDERABLES Performing Organization Address [facility]/ZIP Co de Phone Number [facility] [employer] [facility]AT[facility] * Potassium (01/05/2012 2:00 AM EST) Potassium 4.4 3.5 - 5.0 mmol/L [facility] Comment: [...] Pollard MD CHEMISTRY ORDERABLES Performing Organization Address [facility] de Phone Number [facility] NELSON * (ABNORMAL) Glucose, fasting (01/05/2012 2:00 AM EST) Glucose Fasting 148(H) 65 - 99 mg/dL [facility] Comment: ?Fasting* Glucose Interpretive Criteria Normal ?65-99 [...] of Diabetes Mellitus, Position Statement from the [place] Diabetes Association. ??Diabetes Care, Volume 33, Supplement 1, Nov 2009 Blood specimen (specimen) 01/05/2012 2:00 AM EST 01/05/2012 2:11 AM EST Narrative Resulting Agency Comment Spec In Lab Sarthak Pollard MD CHEMISTRY ORDERABLES Performing Organization Address [facility] de Phone Number [facility] NELSON * Creatinine, serum (01/05/2012 2:00 AM EST) Creatinine 0.86 0.80 - 1.50 mg/dL [facility] [employer] ProductsJ[facility] Est Glomerular Filtration Rate >60 >=60 [facility]ILLJ[facility] Comment: The National Kidney Disease Education [...] Pollard MD CHEMISTRY ORDERABLES Performing Organization Address [facility] Co de Phone Number [facility] ROBYPETR * BUN (01/05/2012 2:00 AM EST) Blood Urea Nitrogen 10 10 - 20 mg/dL [facility] Blood specimen (specimen) 01/05/2012 2:00 AM EST 01/05/2012 2:11 AM EST Narrative Resulting Agency Comment Spec In Lab Sarthak Pollard MD CHEMISTRY ORDERABLES Performing Organization Address City/State/[facility] Co de Phone Number [facility] NELSON * (ABNORMAL) CBC (with Diff) (01/05/2012 2:00 AM EST) White Blood Cell 24.6(H) 4.0 - 10.0 x10(3)/mc L [facility] Red Blood Cell 4.27(L) 4.63 - 6.08 x10(6)/mc L [facility] Hemoglobin 12.8(L) 13.7 - 17.5 gm/dL [facility] Hematocrit 37.9(L) 40.0 - 51.0 % [facility] MILLENNIUM Mean Cell Volume 88.8 79.0 - 92.0 fL [facility] Mean Cell Hemoglobin 30.0 25.6 - 32.2 pg [facility] Mean Cell Hemoglobin Concentration 33.8 32.0 - 36.5 gm/dL [facility] Platelet 294 145 - 370 x10(3)/mc L [facility] MILLENNIUM RDW Standard Deviation 42.2 35.0 - 46.0 fL [facility] MILLENNIUM RDW coefficient of variation 13.0 10.9 - 14.4 % [facility] MILLENNIUM Mean Platelet Volume 9.7 9.0 - 12.0 fL [facility] Blood specimen (specimen) 01/05/2012 2:00 AM EST 01/05/2012 2:11 AM EST Narrative Resulting Agency Comment Spec In Lab Satrhak Pollard MD HEMATOLOGY ORDERABLE S [facility] * POCT GLUCOSE LAB USE ONLY (01/04/2012 11:58 PM EST) Glucose, POC 136 60 - 199 mg/dL [facility] Comment: Supplemental ranges: <110 mg/dL before meals <200 mg/dL all other times of the day Blood specimen (specimen) 01/04/2012 11:58 PM EST 01/04/2012 11:58 PM EST Andi Rene MD POINT OF CARE TEST O RDERABLES [facility] * POCT GLUCOSE LAB USE ONLY (01/04/2012 9:00 PM EST) Glucose, POC 143 60 - 199 mg/dL [facility] Comment: Supplemental ranges: <110 mg/dL before meals <200 mg/dL all other times of the day Blood specimen (specimen) 01/04/2012 9:00 PM EST 01/04/2012 9:00 PM EST Andi Rene MD POINT OF CARE TEST O RDERABLES Performing Organization Address [facility] Phone Number [facility] * GLUCOSE, RANDOM (01/04/2012 9:00 PM EST) Glucose 128 60 - 199 mg/dL [facility] Comment:Diabetes: >=200 mg/d L plus symptoms Blood specimen (specimen) 01/04/2012 9:00 PM EST 01/04/2012 9:08 PM EST Narrative Resulting Agency Comment Spec In Lab Sarthak Pollard MD CHEMISTRY ORDERABLES Performing Organization Address [facility] Phone Number [facility] * (ABNORMAL) Hemoglobin (01/04/2012 9:00 PM EST) Hemoglobin 13.6(L) 13.7 - 17.5 gm/dL [facility] Blood specimen (specimen) 01/04/2012 9:00 PM EST 01/04/2012 9:08 PM EST Narrative Resulting Agency Comment Spec In Lab Sarthak Pollard MD HEMATOLOGY ORDERABLE S Performing Organization Address [facility] Phone Number [facility] * Potassium (01/04/2012 9:00 PM EST) Potassium 4.7 3.5 - 5.0 mmol/L [facility] Comment: Please note: ??Patients with WBC >100,000 [...] CARE TEST O RDERABLES [facility] ROBYENNIUM * XR CHEST PA OR AP- 1 [...] CARE TEST O RDERABLES Performing Organization Address [facility] Co de Phone Number [facility] MILLENNIUM * EKG 12 Lead (01/04/2012 4:26 PM EST) Ventricular rate 72 BPM MUSE SYSTEM Atrial Rate 72 BPM MUSE SYSTEM P-R Interval 174 ms MUSE SYSTEM QRS Duration 96 ms MUSE SYSTEM Q-T Interval 416 ms MUSE SYSTEM QTC Calculated (Bezet) 455 ms MUSE SYSTEM Calculated P [place] 48 degrees MUSE SYSTEM Calculated R [place] 23 degrees MUSE SYSTEM Calculated T [place] 71 degrees MUSE SYSTEM INTERPRETATION Normal sinus rhythm Normal ECG When compared with ECG of 30-DEC-2011 17:24, Vent. rate has decreased BY ??35 BPM Minimal criteria for Inferior infarct are no longer Present Nonspecific T wave abnormality, improved in Anterolateral leads Confirmed by fellow MD Steve, Luca ([id number]) on 01/05/2012 10:22:57 AM Confirmed by MD DELMIS, SARTHAK ([id number]) on 01/05/2012 1:30:02 PM MUSE SYSTEM 01/04/2012 4:26 PM EST 01/05/2012 1:30 PM EST Sarthak Pollard MD ECG ORDERABLES Performing Organization Address [facility] Co de Phone Number MUSE SYSTEM * [...] l) mmHg [facility] Comment: Noted by instrument technician apprentice. MTF PO2, Arterial 145(H) mmHg [facility]ER MILLENNIUM [...] CARE TEST O RDERABLES Performing Organization Address [facility] de Phone Number [facility] * THROMBIN TIME (01/04/2012 3:28 PM EST) Thrombin Time 17 15 - 20 sec [facility] Blood specimen (specimen) 01/04/2012 3:28 PM EST 01/04/2012 3:28 PM EST Narrative Resulting Agency Comment Spec In Lab Sarthak Pollard MD HEMATOLOGY ORDERABLE S Performing Organization Address [facility] de Phone Number [facility] * FIBRINOGEN (01/04/2012 3:28 PM EST) Fibrinogen 364 200 - 470 mg/dL [facility] Comment:Called by: LEILANI, Read back by: AKANKSHA SAMPSON, Date/Time:01/04/12 15:45. Blood specimen (specimen) 01/04/2012 3:28 PM EST 01/04/2012 3:28 PM EST Narrative Resulting Agency Comment Spec In Lab Sarthak Pollard MD HEMATOLOGY ORDERABLE S Performing Organization Address [facility] de Phone Number [facility] * APTT (01/04/2012 3:28 PM EST) Partial Thromboplastin Time 30 25 - 35 sec [facility] Comment: Recommended therapeutic PTT range for full dose unfractionated heparin is 80-114 seconds. Blood specimen (specimen) 01/04/2012 3:28 PM EST 01/04/2012 3:28 PM EST Narrative Resulting Agency Comment Spec In Lab Sarthak Pollard MD HEMATOLOGY ORDERABLE S Performing Organization Address [facility] de Phone Number [facility] CA[facility]NI[facility] * (ABNORMAL) PROTHROMBIN TIME (01/04/2012 3:28 PM EST) Prothrombin Time 17.8(H) 11.9 - 14.7 sec [facility] Comment: [facility] Transfusion Committee Guidelines: INR [...] MD HEMATOLOGY ORDERABLE S Performing Organization Address [facility] de Phone Number [facility] CAENNIUM * [...] l) mmHg [facility]ILL[facility] Comment: Noted by instrument technician apprentice. MTF PO2, Arterial 296(H) mmHg [facility] MILLENNIUM [...] CARE TEST O RDERABLES Performing Organization Address City/[facility] Co de Phone Number [facility] MILL[facility] * FIBRINOGEN (01/04/2012 2:25 PM EST) Fibrinogen 356 200 - 470 mg/dL [facility] Comment:Called by: [facility], Read back by: AKANKSHA SAMPSON, Date/Time:01/04/12 14:49. Blood specimen (specimen) 01/04/2012 2:25 PM EST 01/04/2012 2:32 PM EST Narrative Resulting Agency Comment Spec In Lab Sarthak Pollard MD HEMATOLOGY ORDERABLE S Performing Organization Address City/State/[facility] Co de Phone Number [facility] MILLENNIUM * [...] CARE TEST O GILDA Performing Organization Address [facility] Co de Phone Number [facility] ROBYENNIUM * Prepare Coag Factors (Non-Hemophilia) (01/04/2012 12:05 PM EST) Dispensed? Yes [facility] MILLENNIUM Blood specimen (specimen) 01/04/2012 12:05 PM EST 01/04/2012 12:01 PM EST Narrative Resulting Agency Comment Spec In Lab Inna Tovar MD BLOOD BANK PRODUCT O RDERAHERNANDEZ Performing Organization Address [facility] Co de Phone Number [facility] * Prepare RBC (01/04/2012 12:05 PM EST) [...] 0.0 - 0.2 x10(3)/mc L [facility] MILLENNIUM [place] Absolute Manual 0.3(H) 0.0 - 0.0 x10(3)/mc [...] of Diabetes Mellitus, Position Statement from the [place] Diabetes Association. ??Diabetes Care, Volume 33, Supplement [...] [facility]AN CERDAIUM * (ABNORMAL) CBC (with Diff) (01/04/2012 4:40 AM EST) White Blood Cell 15.5(H) 4.0 - 10.0 x10(3)/mc L [facility] MILLENNIUM Red Blood Cell 4.63 4.63 - 6.08 x10(6)/mc L [facility] MILLENNIUM Hemoglobin 13.9 13.7 - 17.5 gm/dL [facility] MILLENNIUM Hematocrit 40.6 40.0 - 51.0 % [facility] Mean Cell Volume 87.7 79.0 - 92.0 fL [facility] MILLENNIUM Mean Cell Hemoglobin 30.0 25.6 - 32.2 pg [facility] MILLENNIUM Mean Cell Hemoglobin Concentration 34.2 32.0 - 36.5 gm/dL [facility] Platelet 326 145 - 370 x10(3)/mc L [facility] RDW Standard Deviation 40.4 35.0 - 46.0 fL [facility] MILLENNIUM RDW coefficient of variation 12.6 10.9 - 14.4 % [facility] MILLENNIUM Mean Platelet Volume 9.8 9.0 - 12.0 fL [facility] Blood specimen (specimen) 01/04/2012 4:40 AM EST 01/04/2012 4:52 AM EST Narrative Resulting Agency Comment Spec In Lab Remigio Ceron MD HEMATOLOGY ORDERABLE S Performing Organization Address [facility] Co de Phone Number [facility] * (ABNORMAL) APTT (01/04/2012 4:40 AM EST) Partial Thromboplastin Time 103(H) 25 - 35 sec [facility] Comment: Recommended therapeutic PTT range for full dose unfractionated heparin is 80-114 seconds. Blood specimen (specimen) 01/04/2012 4:40 AM EST 01/04/2012 4:52 AM EST Narrative Resulting Agency Comment Spec In Lab Sarthak Pollard MD HEMATOLOGY ORDERABLE S Performing Organization Address City/[facility] Co de Phone Number [facility] * (ABNORMAL) APTT (01/03/2012 7:38 PM EST) Partial Thromboplastin Time 98(H) 25 - [address] [facility] MILLENNIUM Comment: Recommended therapeutic PTT range for full dose unfractionated heparin is 80-114 seconds. Blood specimen (specimen) 01/03/2012 7:38 PM EST 01/03/2012 7:53 PM EST Narrative Resulting Agency Comment Spec In Lab Sarthak Pollard MD HEMATOLOGY ORDERABLE S [facility] * (ABNORMAL) APTT (01/03/2012 12:17 PM EST) [...] Address City/[facility]/ZIP Co de Phone Number [facility] * ANTIBODY SCREEN (01/03/2012 6:15 AM EST) Ab Screen Interp Negative [facility]AN CERDAIUM Expires at [id number] on: [id number] [facility] Blood specimen (specimen) 01/03/2012 6:15 AM EST 01/03/2012 6:35 AM EST Narrative Resulting Agency Comment Spec In Lab Sarthak Pollard MD BLOOD BANK LAB ORDER RANDELL Performing Organization Address [facility] Co de Phone Number [facility] * ABO/RH TYPING (01/03/2012 6:15 AM EST) ABORH Type A Pos [facility] CERDAIUM Blood specimen (specimen) 01/03/2012 6:15 AM EST 01/03/2012 6:35 AM EST Narrative Resulting Agency Comment Spec In Lab Sarthak Pollard MD BLOOD BANK LAB ORDER RANDELL Performing Organization Address [facility] Co de Phone Number [facility] * (ABNORMAL) APTT (01/03/2012 6:15 AM EST) Partial Thromboplastin Time 96(H) 25 - 35 sec [facility] Comment: Recommended therapeutic PTT range for full dose unfractionated heparin is 80-114 seconds. Blood specimen (specimen) 01/03/2012 6:15 AM EST 01/03/2012 6:23 AM EST Narrative Resulting Agency Comment Spec In Lab Sarthak Pollard MD HEMATOLOGY ORDERABLE S Performing Organization Address City/[facility]/ZIP Co de Phone Number [facility] * (ABNORMAL) BMP w/fasting Glucose (01/03/2012 6:15 AM EST) [facility] Glucose Fasting 116(H) 65 - 99 mg/dL [...] of Diabetes Mellitus, Position Statement from the [place] Diabetes Association. ??Diabetes Care, Volume 33, Supplement [...] HEMATOLOGY ORDERABLE S Performing Organization Address City/[facility] Co de Phone Number [facility]BAN[facility] * (ABNORMAL) APTT (01/02/2012 11:21 PM EST) Partial Thromboplastin Time 69(H) 25 - 35 sec [facility] Comment: Recommended therapeutic PTT range for full dose unfractionated heparin is 80-114 seconds. Blood specimen (specimen) 01/02/2012 11:21 PM EST 01/02/2012 11:24 PM EST Narrative Resulting Agency Comment Spec In Lab Sarthak Pollard MD HEMATOLOGY ORDERABLE S Performing Organization Address [facility] de Phone Number [facility] * (ABNORMAL) APTT (01/02/2012 5:32 PM EST) Partial Thromboplastin Time 53(H) 25 - 35 sec [facility] Comment: Recommended therapeutic PTT range for full dose unfractionated heparin is 80-114 seconds. Blood specimen (specimen) 01/02/2012 5:32 PM EST 01/02/2012 5:38 PM EST Narrative Resulting Agency Comment Spec In Lab Sarthak Pollard MD HEMATOLOGY ORDERABLE S Performing Organization Address [facility] Co de Phone Number [facility] * (ABNORMAL) APTT (01/02/2012 11:56 AM EST) Partial Thromboplastin Time 46(H) 25 - [address] [facility] MILLBAN[facility] Comment: Recommended therapeutic PTT range for full dose unfractionated heparin is 80-114 seconds. Blood specimen (specimen) 01/02/2012 11:56 AM EST 01/02/2012 12:05 PM EST Narrative Resulting Agency Comment Spec In Lab Sarthak Pollard MD HEMATOLOGY ORDERABLE S CERNER MILLENNIUM * (ABNORMAL) DIFFERENTIAL, AUTOMATED (01/02/2012 [...] ARIAN NELSON * (ABNORMAL) BMP w/fasting Glucose (01/02/2012 6:02 [...] of Diabetes Mellitus, Position Statement from the [place] Diabetes Association. ??Diabetes Care, Volume 33, Supplement [...] CERBRIAN CAENNIUM * (ABNORMAL) CBC (with Diff) (01/02/2012 6:02 AM EST) White Blood Cell 10.1(H) 4.0 - 10.0 x10(3)/mc L CERNER MILLENNIUM Red Blood Cell 4.42(L) 4.63 - 6.08 x10(6)/mc L [facility] MILL[facility] Hemoglobin 13.1(L) 13.7 - 17.5 gm/dL [facility] MILLENNIUM Hematocrit 39.0(L) 40.0 - 51.0 % [facility] MILLENNIUM Mean Cell Volume 88.2 79.0 - 92.0 fL [facility] MILLENNIUM Mean Cell Hemoglobin 29.6 25.6 - 32.2 pg [facility] MILLENNIUM Mean Cell Hemoglobin Concentration 33.6 32.0 - 36.5 gm/dL [facility] MILLENNIUM Platelet 266 145 - 370 x10(3)/mc L [facility] MILLENNIUM RDW Standard Deviation 40.8 35.0 - 46.0 fL [facility] MILLENNIUM RDW coefficient of variation 12.6 10.9 - 14.4 % [facility] MILLENNIUM Mean Platelet Volume 10.1 9.0 - 12.0 fL [facility] Blood specimen (specimen) 01/02/2012 6:02 AM EST 01/02/2012 6:29 AM EST Narrative Resulting Agency Comment Spec In Lab Remigio Ceron MD HEMATOLOGY ORDERABLE S Performing Organization Address City/[facility] Co de Phone Number [facility]BAN[facility] * (ABNORMAL) APTT (01/02/2012 12:23 AM EST) Partial Thromboplastin Time 36(H) 25 - [address] [facility] ROBYENNIUM Comment: Recommended therapeutic PTT range for full dose unfractionated heparin is 80-114 seconds. Blood specimen (specimen) 01/02/2012 12:23 AM EST 01/02/2012 12:28 AM EST Narrative Resulting Agency Comment Spec In Lab Sarthak Pollard MD HEMATOLOGY ORDERABLE S Performing Organization Address City/[facility]/ZIP Co de Phone Number [facility] * (ABNORMAL) DIFFERENTIAL, AUTOMATED (01/01/2012 6:37 PM EST) Neutrophil % 69.8 34.0 - 71.0 % [facility] Neutrophil Absolute 7.71(H) 1.50 - 6.30 x10(3)/mc [...] MILLENNIUM Hematocrit 38.1(L) 40.0 - 51.0 % [facility] MILLENNI[facility] Mean Cell Volume 88.2 79.0 - 92.0 fL [facility] MILLBANNER [facility]ENTERI[facility] Mean Cell Hemoglobin 30.3 25.6 - 32.2 pg [facility] Mean Cell Hemoglobin Concentration 34.4 32.0 - 36.5 gm/dL [facility] MILLENNIUM Platelet 262 145 - 370 x10(3)/mc L [facility]ER[facility] TRUM[facility]ULLENNIUM RDW Standard Deviation 41.6 35.0 - 46.0 fL [facility] MILLENNIUM RDW coefficient of variation 12.9 10.9 - 14.4 % [facility] MILLBANNER [facility] Mean Platelet Volume 10.1 9.0 - 12.0 fL [facility] Blood specimen (specimen) 01/01/2012 6:37 PM EST 01/01/2012 6:43 PM EST Narrative Resulting Agency Comment Spec In Lab Sarthak Pollard MD HEMATOLOGY ORDERABLE S Performing Organization Address [facility] Phone Number [facility] * APTT (01/01/2012 6:37 PM EST) Partial Thromboplastin Time 32 25 - 35 sec [facility] Comment: Recommended therapeutic PTT range for full dose unfractionated heparin is 80-114 seconds. Blood specimen (specimen) 01/01/2012 6:37 PM EST 01/01/2012 6:43 PM EST Narrative Resulting Agency Comment Spec In Lab Sarthak Pollard MD HEMATOLOGY ORDERABLE S Performing Organization Address [facility] de Phone Number [facility] * POCT GLUCOSE LAB USE ONLY (01/01/2012 12:02 PM EST) Glucose, POC 99 60 - 199 mg/dL [facility] Comment: Supplemental ranges: <110 mg/dL before meals <200 mg/dL all other times of the day Blood specimen (specimen) 01/01/2012 12:02 PM EST 01/01/2012 12:02 PM EST Andi Rene MD POINT OF CARE TEST O RDERABLES ARIAN NELSON * (ABNORMAL) APTT (01/01/2012 11:59 AM EST) Partial Thromboplastin Time 108(H) 25 - 35 sec [facility] Comment: Recommended therapeutic PTT range for full dose unfractionated heparin is 80-114 seconds. Blood specimen (specimen) 01/01/2012 11:59 AM EST 01/01/2012 12:06 PM EST Narrative Resulting Agency Comment Spec In Lab Andi Rene MD HEMATOLOGY ORDERABLE S Performing Organization Address City/[facility]/ZIP Co de Phone Number ARIAN NELSON [...] Neutrophil % 70.3 34.0 - 71.0 % [facility] Neutrophil Absolute 10.76(H) 1.50 - 6.30 x10(3)/mc L [facility] Lymph % 18.2(L) 19.0 - 53.0 % [facility] Lymphocytes Abs 2.8 1.0 - 3.6 x10(3)/mc [...] Address City/[facility]/ZIP Co de Phone Number ARIAN CERDAIUM * (ABNORMAL) APTT (01/01/2012 5:19 [...] BMP w/fasting Glucose (01/01/2012 5:19 AM EST) [facility] Glucose Fasting 121(H) 65 - 99 mg/dL [...] of Diabetes Mellitus, Position Statement from the [place] Diabetes Association. ??Diabetes Care, Volume 33, Supplement [...] of variation 13.1 10.9 - 14.4 % [facility] MILLBAN[facility] Mean Platelet Volume 10.1 9.0 - 12.0 fL [facility] MILLENNIUM Blood specimen (specimen) 01/01/2012 5:19 AM EST 01/01/2012 5:36 AM EST Narrative Resulting Agency Comment Spec In Lab Remigio Ceron MD HEMATOLOGY ORDERABLE S Performing Organization Address [facility] de Phone Number [facility] * (ABNORMAL) APTT (12/31/2011 11:01 PM EST) Partial Thromboplastin Time 72(H) 25 - 35 sec [facility] Comment: Recommended therapeutic PTT range for full dose unfractionated heparin is 80-114 seconds. Blood specimen (specimen) 12/31/2011 11:01 PM EST 12/31/2011 11:18 PM EST Narrative Resulting Agency Comment Spec In Lab Andi Rene MD HEMATOLOGY ORDERABLE S Performing Organization Address [facility] de Phone Number [facility] * Upper Respiratory Culture Throat (12/31/2011 9:55 PM EST) Upper Respiratory Culture ? Patient Name: ZACK HEART, GEOVANNA Llanos ? Ordered By: ANDI RENE ? MR#: [id number] ?LOC: ??[facility] ? /Sex: ??1975 (36 years), ? Male ? PROCEDURE: Upper Respiratory Culture ?SOURCE: Throat ? COLLECTED: 12/31/2011 21:55 ? STARTED: 12/31/2011 22:16 ? FINAL REPORT ? Final Report ? Verified:2011 08:12 ? Beta Hemolytic Streptococci, Group A isolated ? PRELIMINARY REPORT ? Preliminary Report ? Verified:2011 09:46 ? Beta Hemolytic Streptococci, Group A isolated ? [facility] Specimen from throat (specimen) 12/31/2011 9:55 PM EST 12/31/2011 10:16 PM EST Narrative Resulting Agency Comment Spec In Lab Andi Rene MD MICROBIOLOGY - GENER AL ORDERABLES Performing Organization Address [facility] Co de Phone Number [facility] * (ABNORMAL) APTT (12/31/2011 4:34 PM EST) Partial Thromboplastin Time 66(H) 25 - 35 sec [facility] Comment: Recommended therapeutic PTT range for full dose unfractionated heparin is 80-114 seconds. Blood specimen (specimen) 12/31/2011 4:34 PM EST 12/31/2011 4:39 PM EST Narrative Resulting Agency Comment Spec In Lab Andi Rene MD HEMATOLOGY ORDERABLE S Performing Organization Address [facility] Co de Phone Number [facility] * Duplex Study for DVT, Bilat legs (12/31/2011 11:07 AM EST) VB Text Report Department: Vascular Surgery Lab Patient: [id number] (GEOVANNA DIXON) CPT Code: 48976 ICD-9: 780.6 Referring Physician: ANDI RENE Indication: [...] Rene MD VASCULAR ORDERABLES Performing Organization Address City/State/[facility] Co de Phone Number [email or web address] * SMEAR REVIEW REPORT (12/31/2011 10:39 AM EST) Smear Review Report ? [facility] ? Provider: ?? ANDI RENE ?Pt. Name: ?? GEOVANNA DIXON JR ? Acc #: ?[id number] ? Pt. ? Col Date: ?? 12/31/2011 [...] and confirm Dr. Katrin Chakraborty's diagnosis. ARIAN CAPETR 12/31/2011 10:3 9 AM EST Andi S Anju DE HEMATOLOGY ORDERABLE S ARIAN NELSON * (ABNORMAL) DIFFERENTIAL, MANUAL (12/31/2011 9:44 AM [...] HEMATOLOGY ORDERABLE S Performing Organization Address City/[facility] Co de Phone Number [facility] * Lactate Dehydrogenase (12/31/2011 9:44 AM EST) Lactate Dehydrogenase 123 110 - 220 unit/L JILLIANNER MILLENNIUM Blood specimen (specimen) 12/31/2011 9:44 AM EST 12/31/2011 10:12 AM EST Narrative Resulting Agency Comment Spec In Lab Andi Rene MD CHEMISTRY ORDERABLES Performing Organization Address [facility] Co de Phone Number [facility] CAENNI[facility] * Peripheral Smear Review (12/31/2011 9:44 AM EST) Peripheral Smear Review See Comment CERNER MILLENNIUM Comment: When completed by the Pathologist, report [id number] will display under Hematology Reports. Blood specimen (specimen) 12/31/2011 9:44 AM EST 12/31/2011 10:12 AM EST Narrative Resulting Agency Comment Spec In Lab Adni Rene MD HEMATOLOGY ORDERABLE S Performing Organization Address City/[facility]/ZIP Co de Phone Number ARIAN CAENNIUM * (ABNORMAL) APTT (12/31/2011 9:44 AM EST) [...] of Diabetes Mellitus, Position Statement from the [place] Diabetes Association. ??Diabetes Care, Volume 33, Supplement [...] Lab Andi S Rene MD CHEMISTRY ORDERABLES CERNER MILLENNIUM * [...] ORDERABLE S ARIAN CERDAIUM * (ABNORMAL) APTT (12/30/2011 9:02 PM EST) Partial Thromboplastin Time 37(H) 25 - 35 sec CERNER MILLENNIUM Comment: Recommended therapeutic PTT range for full dose unfractionated heparin is 80-114 seconds. Blood specimen (specimen) 12/30/2011 9:02 PM EST 12/30/2011 9:10 PM EST Narrative Resulting Agency Comment Spec In Lab Andi Rene MD HEMATOLOGY ORDERABLE S Performing Organization Address [facility] de Phone Number ARIAN CERDAIUM * EKG 12 Lead (12/30/2011 5:24 PM EST) Ventricular rate 107 BPM MUSE SYSTEM Atrial Rate 107 BPM MUSE SYSTEM P-R Interval 160 ms MUSE SYSTEM QRS Duration 104 ms MUSE SYSTEM Q-T Interval 310 ms MUSE SYSTEM QTC Calculated (Bezet) 413 ms MUSE SYSTEM Calculated P [place] 24 degrees MUSE SYSTEM Calculated R [place] 25 degrees MUSE SYSTEM Calculated T [place] 54 degrees MUSE SYSTEM INTERPRETATION Sinus tachycardia Cannot rule out Inferior infarct , age undetermined Nonspecific T wave abnormality Abnormal ECG When compared with ECG of 29-DEC-2011 23:13, No significant change was found Confirmed by MD VAIBHAV, SARTHAK ([id number]) on 12/31/2011 10:51:02 AM MUSE SYSTEM 12/30/2011 5:24 PM EST 12/31/2011 10:51 AM EST Andi Rene MD ECG ORDERABLES Performing Organization Address [facility] de Phone Number MUSE SYSTEM * Blood culture (12/30/2011 5:04 PM EST) Blood Culture ? Patient Name: GEOVANNA DIXON JR ?Ordered By: ANDI RENE ? MR#: [id number] ?LOC: ??[facility] ? /Sex: ??1975 (36 years), [...] Andi Rene MD MICROBIOLOGY - BLOOD ORDERABLES [facility] * Blood culture (12/30/2011 4:51 PM EST) Blood Culture ? Patient Name: ZACK ORDOÑEZ, GEOVANNA P ?Ordered By: ANDI RENE ? MR#: [id number] ?LOC: ??[facility] ? /Sex: ??1975 (36 years), [...] Absolute 0.04 0.00 - 0.05 x10(3)/mc L [facility] Blood specimen (specimen) 12/30/2011 4:25 PM EST 12/30/2011 4:43 PM EST Andi Rene MD HEMATOLOGY ORDERABLE S Performing Organization Address [facility] Co de Phone Number [facility] * ANTIBODY SCREEN (12/30/2011 4:25 PM EST) Ab Screen Interp Negative [facility] Expires at [id number] on: [id number] [facility] Blood specimen (specimen) 12/30/2011 4:25 PM EST 12/30/2011 4:36 PM EST Narrative Resulting Agency Comment Spec In Lab Andiemely Rene MD BLOOD BANK LAB ORDER RANDELL Performing Organization Address [facility] de Phone Number [facility] * ABO/RH TYPING (12/30/2011 4:25 PM EST) ABORH Type A Pos [facility] Blood specimen (specimen) 12/30/2011 4:25 PM EST 12/30/2011 4:36 PM EST Narrative Resulting Agency Comment Spec In Lab Andi Rene MD BLOOD BANK LAB ORDER RANDELL Performing Organization Address [facility] Co de Phone Number [facility] * Glucose, random (12/30/2011 4:25 PM EST) Glucose 126 60 - 199 mg/dL [facility] Comment:Diabetes: >=200 mg/d L plus symptoms Blood [...] HEMATOLOGY ORDERABLE S ARIAN NELSON * APTT (12/30/2011 2:08 PM EST) Partial Thromboplastin Time 31 25 - 35 sec CERNER MILLENNIUM Comment: Recommended therapeutic PTT range for full dose unfractionated heparin is 80-114 seconds. Blood specimen (specimen) 12/30/2011 2:08 PM EST 12/30/2011 2:27 PM EST Narrative Resulting Agency Comment Spec In Lab Andi Rnee MD HEMATOLOGY ORDERABLE S Performing Organization Address [facility]/ZIP Co de Phone Number ARIAN NELSON * Cardiac Enzymes (12/30/2011 2:08 PM EST) Pathologist [facility] Troponin-T 0.03 <=0.03 ng/mL [facility] Comment: 0.03 ng/mL: Represents the 99th percentile upper reference limit for normals. >0.03 ng/mL: Elevated cardiac troponin T level indicative of myocardial damage. Diagnosis of acute, evolving or recent AK requires a typical rise and gradual fall [...] consensus document of the Joint Society of Cardiology/[place] College of Cardiology Committee for the redefinition of myocardial infarction. Journal of the [place] College of [employer]iology 2000; 36: 959-969] Creatine Kinase 72 0 - 200 unit/L ARIAN NELSON Blood specimen (specimen) 12/30/2011 2:08 PM EST 12/30/2011 2:27 PM EST Narrative Resulting Agency Comment Spec In Lab Remigio Ceron MD CHEMISTRY ORDERABLES Performing Organization Address [facility]/ZIP Co de Phone Number ARIAN NELSON * HIV (12/30/2011 10:18 AM EST) Pathologist [facility] HIV 1/2 Ab Negative [facility] Blood specimen (specimen) 12/30/2011 10:18 AM EST 12/30/2011 10:28 AM EST Narrative Resulting Agency Comment Spec In Lab Andi Rene MD CHEMISTRY ORDERABLES Performing Organization Address City/[facility]/ZIP Co de Phone Number ARIAN NELSON * Echo Transthoracic (Complete) (12/30/2011 9:47 AM EST) EF 55 [facility] Anatomical Region Laterality Modality Other 12/30/2011 Narrative 12/30/2011 10:02 AM EST Procedure: ? Transthoracic Echocardiogram Patient: ? ZACK Llanos ?(Age): 1975(36) Med Rec#: ?[id number] ? Sex: ?M ? Site Loc: ?[facility] ? Ht / Wt: ??180(cm)/124(kg) Pt. Loc: ? Adult Floor ?BSA: ?2.41 Study Date: ?12/30/2011 ? Pt. Type: Inpatient Tape: ? Referring: Remigio Ceron Autopsy Assistant: Benjamin Lundberg Diagnosis: ??Chest pain (786.50) CPT Code(s): ??Spectral Doppler (60360), ??Color Doppler (54175), ??Echo Full (50621), Indication(s): ??Chest Pain Rhythm: HR ?BP ?106/60 [...] Patient: ZACK Llanos (Age): 1975(36) Med Rec#: [id number] Sex: M Site Loc: [facility] Ht / Wt: 180(cm)/124(kg) Pt. Loc: Adult Floor BSA: 2.41 Study Date: 12/30/2011 Pt. Type: Inpatient Tape: Referring: Remigio Ceron Autopsy Assistant: Benjamin Lundberg Diagnosis: Chest pain (786.50) CPT Code(s): Spectral Doppler (13354), Color Doppler (48223), Echo Full (02719), Indication(s): Chest Pain Rhythm: HR BP 106/60 [...] Urine Dipstick Clear Clear CERNER MILLENNIUM Specific [place] Urine Automated 1.019 1.002 - 1.030 CERNER [...] Lab Andi Rene MD URINE ORDERABLES [facility] * Rapid Qual Drug Screen, Urine ([facility]) (12/30/2011 9:32 AM EST) [facility] U IVAN Screen See Note JILLIANBRIAN [facility] Comment: Urine drug of abuse results: [...] Laboratory. Please contact the chemistry laboratory at [phone] with questions. Urine specimen (specimen) 12/30/2011 9:32 AM EST 12/30/2011 9:45 AM EST Narrative Resulting Agency Comment Spec In Lab Andi Rene MD URINE ORDERABLES [facility] * Urine culture Clean Catch Urine (12/30/2011 9:31 AM EST) Urine Culture ? Patient Name: GEOVANNA DIXON JR ?Ordered By: ANDI RENE ? MR#: [id number] ?LOC: ??[facility] ? /Sex: ?? 4 (36 years), ? Male ? PROCEDURE: Urine Culture ?SOURCE: U CC ? COLLECTED: 12/30/2011 09:31 ? STARTED: 12/30/2011 10:38 ? FINAL REPORT ? Final Report ? Verified: 08:00 ? No growth (Less than 1,000 cfu/ml). ? ____ ARIAN CAENNIUM Urine specimen obtained by clean catch procedure (specimen) 12/30/2011 9:31 AM EST 12/30/2011 10:38 AM EST Narrative Resulting Agency Comment Spec In Lab Andi Rene MD MICROBIOLOGY - GENER AL ORDERABLES ARIAN CERDAIUM * (ABNORMAL) DIFFERENTIAL, AUTOMATED (12/30/2011 7:07 AM [...] Cell Volume 88.8 79.0 - 92.0 fL CERBRIAN MILLENNIUM Mean Cell Hemoglobin 30.0 25.6 - 32.2 pg CERBRIAN CAENNIUM Mean Cell Hemoglobin Concentration 33.7 32.0 - 36.5 gm/dL CERBRIAN MILLENNIUM Platelet 230 145 - 370 x10(3)/mc L CERBRIAN MILLENNIUM RDW Standard Deviation 42.2 35.0 - 46.0 fL CERNER MILLENNIUM RDW coefficient of variation 13.0 10.9 - 14.4 % CERNER MILLENNIUM Mean Platelet Volume 10.6 9.0 - 12.0 fL ARIAN MILLENNIUM Blood specimen (specimen) 12/30/2011 7:07 AM EST 12/30/2011 7:18 AM EST Narrative Resulting Agency Comment Spec In Lab Remigio Ceron MD HEMATOLOGY ORDERABLE S [facility] * Hemoglobin A1c (12/30/2011 7:07 AM EST) Hemoglobin A1c 6.1 4.3 - 6.1 % [facility] Estimated Average Glucose 128 mg/dL [facility] Comment: eAG equivalents for HbA1c percentages: HbA1c(%) [...] into estimated average glucose values. ??Diabetes Care 2008:31(8):2400-2401. Blood specimen (specimen) 12/30/2011 7:07 AM EST 12/30/2011 7:18 AM EST Narrative Resulting Agency Comment Spec In Lab Remigio Ceron MD CHEMISTRY ORDERABLES Performing Organization Address [facility] Phone Number [facility] * (ABNORMAL) APTT (12/30/2011 5:45 AM EST) Partial Thromboplastin Time 45(H) 25 - 35 sec [facility] Comment: Recommended therapeutic PTT range for full dose unfractionated heparin is 80-114 seconds. Blood specimen (specimen) 12/30/2011 5:45 AM EST 12/30/2011 6:10 AM EST Narrative Resulting Agency Comment Spec In Lab Andi Rene MD HEMATOLOGY ORDERABLE S Performing Organization Address [facility] Phone Number [facility] * (ABNORMAL) Glucose, fasting (12/30/2011 5:45 AM EST) Glucose Fasting 108(H) 65 - 99 mg/dL [facility] Comment: ?Fasting* Glucose Interpretive Criteria Normal ?65-99 [...] of Diabetes Mellitus, Position Statement from the [place] Diabetes Association. ??Diabetes Care, Volume 33, Supplement 1, Nov 2009 Blood specimen (specimen) 12/30/2011 5:45 AM EST 12/30/2011 6:10 AM EST Narrative Resulting Agency Comment Spec In Lab Remigio Ceron MD CHEMISTRY ORDERABLES Performing Organization Address [facility] Co de Phone Number ARIAN NELSON * (ABNORMAL) Triglyceride (12/30/2011 5:45 AM EST) Triglyceride 245(H) <=149 mg/dL [facility]ER MILLBAN[facility] Comment: Reference Range: Normal triglycerides: ??<150 mg/dL Borderline high: ??150-199 mg/dL High: ??200-499 mg/dL Very high: ??>wk=790 mg/dL ELISEO 2001; 285(19):5171-8123 Blood specimen (specimen) 12/30/2011 5:45 AM EST 12/30/2011 6:10 AM EST Narrative Resulting Agency Comment Spec In Lab Remigio Ceron MD CHEMISTRY ORDERABLES Performing Organization Address [facility] de Phone Number ARIAN NELSON * (ABNORMAL) HDL/Cholesterol Profile (12/30/2011 5:45 AM EST) Cholesterol, Total 170 <=199 mg/dL [facility] [employer] ProductsBANNER DEL [facility] MED[facility]ENTERIUM Comment: Recommendations of the NCEP Adult Treatment Panel for the following risk cutoff thresholds for the [place] population: Desirable: <200 mg/dL Borderline High: 200-239 mg/dL High: > or = 240 mg/dL HDL Cholesterol 36(L) >=40 mg/dL CER NER MILLENNIUM Comment: Reference range: ??Low HDL: ?? < 40 mg/dL ??Normal: ?40-60 mg/dL ??Desirable: > 60 mg/dL ELISEO 2001; 285(19):0870-9326 Cholesterol/HDL Ratio 4.7 ratio CERNER MILLENNIUM Comment: A Cholesterol to HDL ratio below 4:1 is desirable. ??Studies suggest that increased CAD risk occurs at ratios above 5 for females and above 6 for men. ? [place] Heart Association ??(http://www.americanheart.org) ? Jazmine Int Med, 1994; 121:641 ? AM J Med, 1998; 105(1A):48S Blood specimen (specimen) 12/30/2011 5:45 AM EST 12/30/2011 6:10 AM EST Narrative Resulting Agency Comment Spec In Lab Remigio Ceron MD CHEMISTRY ORDERABLES Performing Organization Address [facility] Co de Phone Number [facility] * (ABNORMAL) LDL Cholesterol, Direct (12/30/2011 5:45 AM EST) LDL Cholesterol, Direct 110(H) <=99 mg/dL [facility] Comment: The National Cholesterol Education Program (NCEP) has set the following guidelines for LDL Cholesterol: Reference range: ?? Optimal: ?<100 mg/dL ?? Near Optimal/Above Optimal: ?? 100-129 mg/dL ?? Borderline high: ?130-159 mg/dL ?? High: ? 160-189 mg/dL ?? Very high: ?>or=923 mg/dL ELISEO 2001: 285(19):4484-2550 Blood specimen (specimen) 12/30/2011 5:45 AM EST 12/30/2011 6:10 AM EST Narrative Resulting Agency Comment Spec In Lab Remigio Ceron MD CHEMISTRY ORDERABLES Performing Organization Address [facility] de Phone Number [facility] * (ABNORMAL) Cardiac Enzymes (12/30/2011 5:45 AM EST) Troponin-T 0.05(H) <=0.03 ng/mL [facility] Comment: 0.03 ng/mL: Represents the 99th percentile upper reference limit for normals. >0.03 ng/mL: Elevated cardiac troponin T level indicative of myocardial damage. Diagnosis of acute, evolving or recent AK requires a typical rise and gradual fall [...] consensus document of the Joint Society of Cardiology/Swiss College of Cardiology Committee for the redefinition of myocardial infarction. Journal of the [place] College of Cardiology 2000; 36: 959-969] Creatine [...] Gran % 0.20 0.00 - 0.66 % ARIAN CERDAIUM Comment: Immature granulocytes(IG's)percentage and absolute count will include metamyelocytes, myelocytes, and promyelocytes. Blood smears from CBCs yielding IG's will be scanned manually for concordance. If this scan disagrees with the automated IG or if promyelocytes are noted, a manual differential will be performed. Immature Gran Absolute 0.04 0.00 - 0.05 x10(3)/mc L ARIAN NELSON Blood specimen (specimen) 12/29/2011 11:29 PM EST 12/29/2011 11:34 PM EST Remigio Ceron MD HEMATOLOGY ORDERABLE S [facility]EL[facility] * (ABNORMAL) Cardiac Enzymes (12/29/2011 11:29 PM EST) Troponin-T 0.08(H) <=0.03 ng/mL ARIAN NELSON Comment: 0.03 ng/mL: Represents the 99th percentile upper reference limit for normals. >0.03 ng/mL: Elevated cardiac troponin T level indicative of myocardial damage. Diagnosis of acute, evolving or recent AK requires a typical rise and gradual fall [...] consensus document of the Joint Society of Cardiology/Swiss College of Cardiology Committee for the redefinition of myocardial infarction. Journal of the [place] College of Cardiology 2000; 36: 959-969] Creatine Kinase 86 0 - 200 unit/L ARIAN NELSON Blood specimen (specimen) 12/29/2011 11:29 PM EST 12/29/2011 11:34 PM EST Narrative Resulting Agency Comment Spec In Lab Remigio Ceron MD CHEMISTRY ORDERABLES Performing Organization Address [facility] Phone Number ARIAN CERDAIUM * Prothrombin Time (12/29/2011 11:29 PM EST) Prothrombin Time 13.2 11.9 - 14.7 sec CERNER MILLENNIUM Comment: HEALTH SYSTEM Transfusion Committee Guidelines: INR [...] MD HEMATOLOGY ORDERABLE S Performing Organization Address [facility] Phone Number ARIAN CERDAIUM * Hepatic Function [...] Ceron MD CHEMISTRY ORDERABLES Performing Organization Address [facility] Phone Number ARIAN CERDAIUM * pro-Brain Natriuretic Peptide (12/29/2011 11:29 PM EST) NT-proBNP 114 <=125 pg/mL [facility] Blood specimen (specimen) 12/29/2011 11:29 PM EST 12/29/2011 11:34 PM EST Narrative Resulting Agency Comment Spec In Lab Remigio Ceron MD CHEMISTRY ORDERABLES Performing Organization Address [facility] Co me Phone Number [facility] * TSH (12/29/2011 11:29 PM EST) Thyroid Stimulating Hormone 0.39 0.27 - 4.20 mcIU/mL [facility] Blood specimen (specimen) 12/29/2011 11:29 PM EST 12/29/2011 11:34 PM EST Narrative Resulting Agency Comment Spec In Lab Remigio Ceron MD CHEMISTRY ORDERABLES Performing Organization Address [facility] Phone Number [facility] * Phosphorus (12/29/2011 11:29 PM EST) Phosphorus 3.1 2.5 - 4.5 mg/dL [facility] Blood specimen (specimen) 12/29/2011 11:29 PM EST 12/29/2011 11:34 PM EST Narrative Resulting Agency Comment Spec In Lab Remigio Ceron MD CHEMISTRY ORDERABLES Performing Organization Address [facility] Phone Number [facility] * Magnesium (12/29/2011 11:29 PM EST) Magnesium 0.83 0.69 - 1.07 mmol/L [facility] Blood specimen (specimen) 12/29/2011 11:29 PM EST 12/29/2011 11:34 PM EST Narrative Resulting Agency Comment Spec In Lab Remigio Ceron MD CHEMISTRY ORDERABLES Performing Organization Address [facility] Phone Number [facility] * (ABNORMAL) Basic Metabolic Panel (non-fasting) (12/29/2011 [...] HEMATOLOGY ORDERABLE S ARIAN CAENNIUM * APTT (12/29/2011 11:29 PM EST) Partial Thromboplastin Time 34 25 - 35 sec CERNER MILLENNIUM Comment: Recommended therapeutic PTT range for full dose unfractionated heparin is 80-114 seconds. Blood specimen (specimen) 12/29/2011 11:29 PM EST 12/29/2011 11:34 PM EST Narrative Resulting Agency Comment Spec In Lab Remigio Ceron MD HEMATOLOGY ORDERABLE S ARIAN NELSON * EKG 12 Lead (12/29/2011 11:13 PM EST) Ventricular rate 108 BPM MUSE SYSTEM Atrial Rate 108 BPM MUSE SYSTEM P-R Interval 150 ms MUSE SYSTEM QRS Duration 106 ms MUSE SYSTEM Q-T Interval 340 ms MUSE SYSTEM QTC Calculated (Bezet) 455 ms MUSE SYSTEM Calculated P [place] 19 degrees MUSE SYSTEM Calculated R [place] 31 degrees MUSE SYSTEM Calculated T [place] 51 degrees MUSE SYSTEM INTERPRETATION Sinus tachycardia [...] Heartburn, Routine 0707 (Given - Provider: Hermila Dumas, DAVID) HYDROmorphone (DILAUDID) tablet 2-6 mg 2-6 mg, [...] Michelle Chong RN)2039 (Given - Provider: Hermila Dmuas RN)2359 (Given - Provider: Hermila Dumas RN) [...] Routine documented in this encounter Care Teams Nuclear Licensing Engineer Relationship Specialty Start Date End Date Patric Al MD PCP - General 12/29/11 02/26/19 documented as of this encounter
--- OUTSIDE RECORDS SUMMARY | 2024-10-20 12:55 | XMS_ITS | Encounter Summary ---
Author Organization Formerly [facility] Address [facility] [place] [address] Care Team Providers Care Key Holder Name Role Phone Guanako Gusman MD Primary Care Provider [phone] Encounter Details Date Type Department Care Team (Late st Contact Info) Description 01/04/2012 12:13 PM EST Anesthesia Event [place] [address] Rodrigo Montgomery MD [facility] [place] [address] Anesthesia Record Procedure Summary Procedure Name Responsible [...] Removal Time: 191301/04/12 0000 by Vangie Castro, PRESS BUCKER 01/04/12 191 by Bhumi Goldberg RCP documented in this [...] & ARTERIAL GRAFT;SINGLE VEIN GRAFT Patient location: [facility] Surgical Floor Post-op pain: Adequate analgesia [...] ROS comment: +TOB Cardiovascular (+) hypertension, past [place], CAD, angina, WHITTAKER, (-) valvular problems/murmurs and [...] 1:00 PM EST Appointment XRay at [address] [place] [address] Isabela Hayward [facility] INFECTIOUS [place] [address] 11/09/2024 1:30 PM EST Office [place] [address] Isabela Hayward CENTRIFUGAL EXTRACTOR OPERATOR [facility] [place] [address] 11/10/2024 10:00 AM EST Office [place] [address] Dai Whitman APRN 11/21/2024 2:15 PM EST Office [place] [address] Dayanara Grover MD [facility] DR [place] [address] documented as of this encounter Visit Diagnoses Not on filedocumented in this encounter Care Teams Key Holder Relationship Specialty Start Date End Date Guanako Gusman MD PCP - General 12/29/11 02/26/19 documented as of this encounter
--- OUTSIDE RECORDS SUMMARY | 2024-10-20 12:55 | XMS_ITS | Encounter Summary ---
Author Organization Formerly [facility] [place] [address] Care Team Providers Care Diesel Engine Fitter Name Role Phone Guanako Gusman MD Primary Care Provider [phone] Encounter Details Date Type Department Care Team (Late st Contact Info) Description 12/31/2011 2:00 PM EST Office [place] [address] Dai Iglesias, EZEQUIEL Social History Tobacco Use Types Packs/Day Years [...] 1:00 PM EST Appointment XRay at [address] [place] [address] Isabela Hayward APRN [facility] [place] [address] 11/09/2024 1:30 PM EST Office [place] [address] Isabela Hayward APRN [facility] [place] [address] 11/10/2024 10:00 AM EST Office Visit Vascular Surgery at [place] [phone] Dai Whitman, DANDY TENDER 11/21/2024 2:15 PM EST Office [place] [address] Dayanara Grover MD [facility] [place] [address] documented as of this encounter Visit Diagnoses Not on filedocumented in this encounter Care Teams Diesel Engine Fitter Relationship Specialty Start Date End Date Guanako Gusman MD PCP - General 12/29/11 02/26/19 documented as of this encounter
--- OUTSIDE RECORDS SUMMARY | 2024-10-20 12:55 | XMS_ITS | Encounter Summary ---
Author Organization [facility] Address [facility] [place] [address] Care Team Providers Care Ski Top Trimmer Name Role Phone Guanako Gusman MD Primary Care Provider [phone] Encounter Details Date Type Department Care Team (Late st Contact Info) Description 01/01/2012 11:59 PM EST Anesthesia Event [place] [address] Reny Melchor MD [facility] [place] [address] Anesthesia Record Procedure Summary Procedure Name Responsible [...] ROS comment: +TOB Cardiovascular (+) hypertension, past [place], CAD, angina, WHITTAKER, (-) CHF ROS comment: [...] 10/23/2024 1:00 PM EST Appointment XRay at [address] [place] [address] Isabela Hayward, [facility] [place] [address] 11/09/2024 1:30 PM EST Office Visit [place] [address] Isabela Hayward, [facility] [place] [address] 11/10/2024 10:00 AM EST Office Visit [place] [address] Dai Whitman, FORMULATION CHEMIST 11/21/2024 2:15 PM EST Office Visit [place] [address] Dayanara Grover MD [facility] [place] [address] documented as of this encounter Visit Diagnoses Not on filedocumented in this encounter Care Teams Ski Top Trimmer Relationship Specialty Start Date End Date Guanako Gusman MD PCP - General 12/29/11 02/26/19 documented as of this encounter
--- OUTSIDE RECORDS SUMMARY | 2024-10-20 12:56 | XMS_ITS | Encounter Summary ---
Author Organization [facility] Address [address] [place] [address] Care Team Providers Care Section Hand Name Role Phone Cameron Patel DRIVER EDUCATION INSTRUCTOR Primary Care Provider [phone] Encounter Details Date Type Department Care Team (Late st Contact Info) Description 05/27/2010 Abstract Used for ABSTRACTING Data [phone] Cameron Patel, DRIVER EDUCATION INSTRUCTOR [address] [place] [address] Social History Tobacco Use Types [...] mouth. added in this encounter Care Teams Section Hand Relationship Specialty Start Date End Date Cameron Patel DRIVER EDUCATION INSTRUCTOR [address] [place] [address] PCP - General 10/22/09 documented as of this encounter
--- OUTSIDE RECORDS SUMMARY | 2024-10-20 12:56 | XMS_ITS | Encounter Summary ---
Author Organization [facility] Address [address] [place] [address] Care Team Providers Care Cut Off Saw Operator Pipe Blanks Name Role Phone Unavailable Primary Care Provider Unavailabl e Encounter Details Date Type Department Care Team (Late st Contact Info) Description 03/09/2008 Before PRISM Converted Visit (Maple) [facility] - Maple conversion [address] [place] [address] Wil Tay MD [address] [address] Social History Tobacco Use Types [...] EDT March 09, 2008 Anna Hoang MD [facility] [address] [address] Dear Anna: Thank you for referring Mr. [...] and an EEG that was normal in [place], [place]. He currently is taking a [...] He denies symptoms of restless legs. His [place] sleepiness is 23/24. PAST MEDICAL HISTORY Hypertension. He has just recently developed hypertension. He did not respond well to lisinopril, so he is currently on Cozaar and this has been helping his blood pressure some. It has not worsened his cataplexy any. ALLERGIES No known drug allergies. MEDICATIONS Cozaar, methylphenidate, amphetamine, clomipramine, Provigil, Effexor, Viagra, Rolaids, and Tylenol. SOCIAL HISTORY He has a 32-[id number]-srmh history of smoking, which is a lot for a young man like him. He drinks 8-12 cups of coffee a day. No other caffeine intake. No alcohol. No drug use. 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 Coordination: Normal ydvkfb-xm-ehubrf and rkwgyt-yw-nohc and rapid alternating movements. DTRs are +2 [...] hometown. 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, [place] [address]* documented in this encounter Plan of Treatment Not on file documented as of this encounter Visit Diagnoses Not on filedocumented in this encounter
--- OUTSIDE RECORDS SUMMARY | 2024-10-20 12:56 | XMS_ITS | Encounter Summary ---
Author Organization Formerly [facility] Address [facility] [place] [address] Care Team Providers Care Blasting Cap Assembler Name Role Phone Guanako Gusman MD Primary Care Provider [phone] Encounter Details Date Type Department Care Team (Late st Contact Info) Description 12/29/2011 Orders Only Cardiology at [address] [address] Sarthak Pollard MD [facility] [place] [address] Social History Tobacco Use Types Packs/Day Years [...] 10/23/2024 1:00 PM EST Appointment XRay at [address] [place] [address] Isabela Hayward APRN [facility] [place] [address] 11/09/2024 1:30 PM EST Office [place] [address] Isabela Hayward, ADAPTIVE PHYSICAL EDUCATION SPECIALIST [facility] [place] [address] 11/10/2024 10:00 AM EST Office [place] [address] Dai Whitman, RESHMA 11/21/2024 2:15 PM EST Office [place] [address] Dayanara Grover MD [facility] [place] [address] documented as of this encounter Procedures Procedure [...] is a non-reportable exam. Sarthak Pollard MD [facility] FILM LIBRARY ORD ERABLES [facility] [address] [facility] [place] [address] documented in this encounter Visit Diagnoses Not on filedocumented in this encounter Care Teams Blasting Cap Assembler Relationship Specialty Start Date End Date Guanako Gusman MD PCP - General 12/29/11 02/26/19 documented as of this encounter
--- OUTSIDE RECORDS SUMMARY | 2024-10-20 12:56 | XMS_ITS | Clinical Summary ---
Author Organization Health system Address [address] [place] [address] Care Team Providers Care Reset Merchandiser Name Role Phone Cameron Patel Viet HEALTHCARE INTERPRETER Primary Care Provider [phone] Medications LOSARTAN POTASSIUM (COZAAR ORAL) Take by [...] C Antibody Negative Negative 12/04/2022 8:56 EST [facility] Blood VENOUS BLOOD / Unknown 12/02/2022 11:40 EST 12/03/2022 17:36 EST us Provider Outr Resulting Lab CHEMISTRY & BLOOD GA S ORDERABLES Final Result [facility] [address] [place] [address] from Last 3 Months or Most Recently Relevant to Health Maintenance Care Teams Reset Merchandiser Relationship Specialty Start Date End Date Cameron Patel, HEALTHCARE INTERPRETER [address] [place] [phone] PCP - General 10/22/09
--- OUTSIDE RECORDS SUMMARY | 2024-10-20 12:56 | XMS_ITS | Referral Summary ---
Author Organization [facility] Address [address] [place] [address] Care Team Providers Care Pomology Teacher Name Role Phone JorgeCameron Viet CORRECTIONAL THERAPY TEACHER Primary Care Provider [phone] Medications LOSARTAN POTASSIUM (COZAAR ORAL) Take by [...] C Antibody Negative Negative 12/04/2022 8:56 EST [facility] Blood VENOUS BLOOD / Unknown 12/02/2022 11:40 EST 12/03/2022 17:36 EST us Provider Outr Resulting Lab CHEMISTRY & BLOOD GA S ORDERABLES Final Result [facility] [address] [place] [address] from Last 3 Months or Most Recently Relevant to Health Maintenance Care Teams Pomology Teacher Relationship Specialty Start Date End Date Cameron Patel, CORRECTIONAL THERAPY TEACHER [address] [facility] [place] [address] PCP - General 10/22/09
--- OUTSIDE RECORDS SUMMARY | 2024-10-20 12:56 | XMS_ITS | Encounter Summary ---
Author Organization [facility] Address [address] [place] [address] Care Team Providers Care Chief Radiation Therapist Name Role Phone Cameron Patel CERTIFIED FAMILY MEDIATOR Primary Care Provider [phone] Encounter Details Date Type Department Care Team (Late st Contact Info) Description 11/23/2005 Office Visit [facility] - Maple conversion [address] [place] [address] Jorge Urrutia MD [address] [place] [address] Social History Tobacco Use Types [...] similar symptoms. Diagnosed as dental caries. ( [facility] ED - given ibuprofen.). REVIEW [...] pain. No fever or nasal discharge. 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 Symptoms did not [...] filling fell out. Called dentist, Dr. [facility]- couldn't get appt untill next week.). [...] followup. Patientverbalized understanding. Written instructions provided in French. The patient was discharged home. The patient left the Emergency Department ambulatory and via private vehicle. Patient driving. Patient has no belongings. Departure time: 15:23. --1523 Annette Collazo R.N. Locked/Released at 11/23/2005 15:23 by Annette Collazo R.N. documented in this encounter Plan of Treatment Not on file documented as of this encounter Visit Diagnoses Not on filedocumented in this encounter Care Teams Chief Radiation Therapist Relationship Specialty Start Date End Date Cameron Patel, CERTIFIED FAMILY MEDIATOR [address] [place] [phone] PCP - General 10/22/09 documented as of this encounter
--- OUTSIDE RECORDS SUMMARY | 2024-10-20 12:56 | XMS_ITS | Encounter Summary ---
Author Organization [facility] Address [address] [place] [address] Care Team Providers Care Baby Sitter Name Role Phone JorgeAinsleytierra Llanos CONSOLE MANAGER Primary Care Provider [phone] Encounter Details Date Type Department Care Team (Late st Contact Info) Description 12/03/2022 Lab Requisition [facility]ology & Laboratory Medicine - [address] [address] Outr Resulting Lab, Provider Social History Tobacco [...] 4th Generation Negative Negative 12/04/2022 9:22 EST [facility] Comment:If acute HIV-1 infec tion is suspected in a high risk patient, submit plasma specimen for HIV-1 RNA quantitation test. Blood VENOUS BLOOD / Unknown 12/02/2022 11:40 EST 12/03/2022 17:37 EST Narrative [facility] - 12/04/2022 9:22 EST Fourth Generation assay performed on the Siemens Centaur XPT. us Provider Outr Resulting Lab IMMUNOLOGY AND SEROL OGY ORDERABLES Final Result [facility] [address] [place] [address] documented in this encounter Visit Diagnoses Not on filedocumented in this encounter Care Teams Baby Sitter Relationship Specialty Start Date End Date Cameron Patel, CONSOLE MANAGER [address] [facility] [place] [address] PCP - General 10/22/09 documented as of this encounter
--- OUTSIDE RECORDS SUMMARY | 2024-10-20 12:56 | XMS_ITS | Encounter Summary ---
Author Organization [facility] Address [address] [place] [address] Care Team Providers Care Park Interpretive Ranger Name Role Phone JorgeAinsleytierra Llanos PILOT BOAT DECKHAND Primary Care Provider [phone] Encounter Details Date Type Department Care Team (Late st Contact Info) Description 10/02/2020 Lab Requisition [facility] Pathology & Laboratory Medicine - [address] [address] Outr Resulting Lab, Provider Social History Tobacco [...] 4th Generation Negative Negative 10/22/2020 13:59 EST [facility] Comment: If acute HIV-1 infection is suspected in a high risk ??patient, submit plasma specimen for HIV-1 RNA quantitation test. Fourth Generation assay performed on the Siemens Centaur. Blood VENOUS BLOOD / Unknown 09/19/2020 16:00 EST 10/22/2020 7:12 EST us Provider Outr Resulting Lab IMMUNOLOGY AND SEROL OGY ORDERABLES Final Result [facility] [address] [place] [address] documented in this encounter Visit Diagnoses Not on filedocumented in this encounter Care Teams Park Interpretive Ranger Relationship Specialty Start Date End Date Cameron Patel, PILOT BOAT DECKHAND [address] [facility] [place] [phone] PCP - General 10/22/09 documented as of this encounter
--- OUTSIDE RECORDS SUMMARY | 2024-10-20 12:56 | XMS_ITS | Encounter Summary ---
Author Organization [facility] Address [facility] [place] [address] Care Team Providers Care Dry Cleaning Manager Name Role Phone Patric Al MD Primary Care Provider [phone] Encounter Details Date Type Department Care Team (Late st Contact Info) Description 12/30/2011 9:30 AM EST - 12/30/2011 10:51 AM EST Surgery [place] [address] Sarthak Oliveros MD [facility] [place] [address] CARDIAC CATHETERIZATION Social History Tobacco Use Types [...] 12:11 PM EST Geovanna Dixon Jr. 1975 [id number] New Diagnosis of Pre-Diabetes For discharge should [...] Some considerations about using metformin in Prediabetics: [place] Diabetes Prevention Program (DPP) as well as other minor studies and meta-analyses has convincingly demonstrated the efficacy of metformin in this patient group [pre-diabetics]. In addition, results of the 10 year DPP follow up have recently been published, demonstrating the long wall shear operator safety and sustainability of metformin treatment [...] - will be starting Cardiac rehab at [facility], encouraged to increase physical activity as advised by cardiologists Weight Loss - A 7% weight loss could significantly improve his BG control Tobacco cessation - There is growing evidence that cigarette smokers are more prone than the general population to develop T2DM. Increase in insulin resistance with tobacco use. Darcie Lange APRN [facility] Endocrinology Diabetes Management [phone] * Patient Instructions* Ricky Graham PA - [...] Anne Tovar and/or the Cardiothoracic [facility] Docent Team may be reached at . Activity [...] Dr. Inna Tovar. You may use a [place]mons[place] Track or treadmill but avoid any pulling [...] would be to continue to go [place]. He has quit this way before and [...] only 10% of those who quit [place] are able to be successful. The calculated savings once he quits smoking would be $54 a week, $234 a month, and $2803 a year. If he quits now his savings will be $28,030 in 10 years. The patient was provided with a [facility] Smoking Cessation packet and the contents have been reviewed with him. The patient now has the Quit line number for [place] and has also been encouraged to use this ifneeded for support. In addition he was in agreement with a referral to the [place] Quitnetwork and a referral was faxed to [...] given to patient. Discharge summary faxed to [facility] and receipt confirmed via phone. Patient discharged to home with son. * Adebayo Mcgarry PTA - 01/08/2012 11:42 AM EST Physical Therapy Note Patient profile: Patient is a 36 y.o. male of Sarthak Padlila MD, admitted on 12/29/2011 with [place], chest [...] outpatient basis Equipment needs: none ADEBAYO MCGARRY, [employer] FORCES COMMUNICATIONS SERGEANT Pager: [phone] Physical Therapy Rehabilitation Department * Michelle Chong [...] services. Patient would like VNA services through [facility]. PHONE: [phone] FAX: [phone]. Referral made via E-discharge. Please see home care orders that must be included in discharge summary for VN services to start. Patient has glucometer and supplies at bedside. Pt. Denies any further needs from [facility]. Pt. Gets scripts through [place] Medicaid with co-pay. He denies any concerns related to co-pay. * Darcie Lange, CONCESSION WORKER - 01/07/2012 9:57 AM EST Geovanna Dixon Jr. 1975 [id number] PATRIC AL MD Follow Up Diabetes Consult [...] Some considerations about using metformin in Prediabetics: [place] Diabetes Prevention Program (DPP) as well as other minor studies and meta-analyses has convincingly demonstrated the efficacy of metformin in this patient group [pre-diabetics]. In addition, results of the 10 year DPP follow up have recently been published, demonstrating the retirement safety and sustainability of metformin treatment benefits [...] - will be starting Cardiac rehab at [facility], encouraged to increase physical activity [...] sensitive Novolog correction only Darcie Lange APRN [facility] Endocrinology Diabetes Management [phone] Pager [phone] This case was discussed with Dr. Christina Brody. 25 min time spent in patient care with 20 counseling, seeing patient, changing orders and discussion with the patient and the primary team as well as nursing. * Inna Tovar MD - 01/07/2012 9:39 AM EST Cardiac Surgery Progress Note: ID: [id number] 36/M POD #[address] Tovar [...] results found for this basename: phart, po2art, pho8pns Assessment/Plan: Pathway. Neuro: ambulating on own per [...] home. (ie take out the trash or sheepskin pickler his child) Objective:Pt was seen today for [...] minutes Total timed interventions: 30 minutes NAM TRINIDAD PT Pager: [phone] Physical Therapy Rehabilitation Department * Vibha Martines [...] FOR CABG performed by INNA TOVAR at [facility] OR ??? Cabg, artery-vein, single 01/04/2012 @CABG, VENOUS & ARTERIAL GRAFT;SINGLE VEIN GRAFT performed by INNA TOVAR at [facility] OR Outpatient prescriptions marked as [...] yes Date: 12/29/11 Why then: Admission to [facility] What will be different this time: Just [...] would be to continue to go [place]. He has quit this way before and it lasted several years, so he has a history of being successful with this method. He also pointed out that his father and an uncle quit (for now over 10 years) by going [place]. I told him that it is difficult to recommend a quit method that has a 90% failure rate, but that said, it is his choice and that I would provide him with a toolkit of information so that he will be as knowledgeable as possible about nicotineaddiction and how to stay quit. And we do know that 10% of those who quit [place] are able to be successful. I calculated and shared with him that his savings once he quits smoking would be $54 a week, $234 amonth, and $2803 a year. If he quits now his savings will be $28,030 in 10 years. The patient has also been provided with a [facility] Smoking Cessation packet and the contents have been reviewed with him. The patient now has the Quit line number for [place] and has also been encouraged to use this if needed for support. In addition he was in agreement with a referral to the [place] Quitnetworkand I have FAXed a referral to [...] Nutrition Intervention: Hospital Day 9 Diet Order: [facility] Appetite: fair Food allergies: none Chewing/Swallowing difficulty: none Height: (cm) 180.3 Weight: (kg) 127.9 01/06/12 Wt hx: (kg) 124.5 12/29/11 BMI: 38.4 Education: [facility] dietary guidelines. Tips To Better Food Intake (Protein) dietary guidelines. Verbalized good understanding. Education material, with means of contact provided. Assessment: Patient verbalized good understanding of protein needs for healing as well as [facility] Heart Healthy guidelines. I have added high protein snacks between meals and CIB shakes to meal trays for extra protein/nutrition. Nutrition Plan: Diet: [facility] Recommend Daily Multi Vitamins. Added high protein snacks. CIB w/skim milk shakes three times per day. Encourage good po intake. Monitor weight. Support and encouragement provided. Nutrition services to follow weekly thru hospital course unless consulted in the interim. ACOSTA SMALL * Inna Tovar MD - 01/06/2012 1:50 PM EST Cardiac Surgery In Patient Progress Note Patient Name: Geovanna Dixon Jr. : [id number] MR#: [id number] Admitted: 12/29/2011 Hospital Day 8 days Problem [...] Hamlin RN - 01/06/2012 10:11 AM EST [facility] CARDIAC REHABILITATION Geovanna Dixon Jr. was seen today regarding participation in outpatient Phase 2 Cardiac Rehabilitation at [facility] . A referral will be sent to this program. The patient was given contact information and should expect to be contacted by the program within 1-2 weeks after discharge from [facility]. * Kareen Mendoza, PT - 01/05/2012 3:59 [...] FOR CABG performed by INNA TOVAR at [facility] ??? Cabg, artery-vein, single 01/04/2012 @CABG, VENOUS & ARTERIAL GRAFT;SINGLE VEIN GRAFT performed by INNA TOVAR at [facility] Social History: Patient lives [...] minutes brief evaluation KAREEN MENDOZA, PT Pager: [phone] Physical Therapy Rehabilitation Department * Camille Angulo [...] MD Financial Concerns: insured via Medicare and [place] [employer] Transportation: With family members. Father was in room also and said he could drive as could step-daughter. Anticipated Services at Discharge: will require re-assessment closer to time of d/c. May need VNA. A: medical plan still evolving. P: This web content writer or colleague from the Office of [...] 0613 123.3 kg (271 lb 13.2 oz) 02/26/12 0609 123.2 kg (271 lb 9.7 oz) [...] FULL CODE Paola Cobosstephanie PGY 1 Pager [phone] Attending Addendum: I spoke with the patient and his family briefly this am. I agree with the principal findings. The impression and plan incorporate my input. No contraindication to surgery today. Sarthak Pollard MD [facility] pager [phone] * Sarthak Pollard MD - 01/03/2012 11:08 [...] risk of aggravating CAD. Sarthak Pollard MD [facility] pager [phone] * Bal John MD - 01/02/2012 3:10 [...] Cristina Ambriz MD PGY1, Internal Medicine Pager [phone] 01/02/2012 Attending Addendum: I have interviewed and examined the patient. I agree with the principal findings. The impression and plan incorporate my input. As above, doing well. Will keep on heparin until surgery. No angina, HF, bleeding, or evidence of HIT. Sarthak Pollard MD [facility] pager [phone] * Inna Tovar MD - 01/01/2012 3:17 [...] mg BID Paola Akers PGY 1 Pager [phone] Attending Addendum: I have interviewed and examined the patient. I agree with the principal findings. The impression and plan incorporate my input. He is disappointed that his surgery has been postponed until Wednesday butunderstands. He remains cp free. I've reviewed his angiograms and believe he needs to stay on heparin until surgery. All questions answered. Sarthak Pollard MD [facility] pager [phone] * Andi Rene MD - 12/31/2011 5:20 [...] for chest pain as a transfer from [facility] - Cardiac cath yesterday showed significant [...] mg BID Paola Akers PGY 1 Pager [phone] Cardiology Attending Progress Note Addendum: I have [...] would like to attend cardiac rehab at [facility] in [facility]. We will meet him [...] Call saucedo within reach, family at bedside. [phone]) Patient off unit to XRAY with transpo & DIRECTOR OF FLIGHT OPERATIONS. documented in this encounter H&P Notes * [...] Lives on social security in house in [facility] with two children (18 and 4, and one step child) Active pack per day smoker (27pack year history) No etoh No drugs Enjoys riding motorcycles and hunting He is NOT a hoahaoism FHx: Heart disease on both sides of [...] 13.2 12/29/2011 PTT 31 12/30/2011 Troponins at [facility]: 0.05-->0.03 Imaging: Echo 12/30/11: 1. The left [...] loss were emphasized as they relate to retirement patency of his grafts. He should receive smoking cessation counseling donya. One post op consideration will be vent wean and respiratory status given likely underlying CAMILLA and his known narcolepsy. 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 Pt seen and interviewed with [...] +active 25 pack year smoker comes to [facility] from [facility] for evaluation of [...] history (both paternal grandparents passing away from [facility] and paternal aunts/uncles with histories [...] FULL Provider: REMIGIO CERON MD Pager #: [phone] documented in this encounter Procedure Notes * Provider, Scanning - 01/10/2012 1:46 PM ESTAssociated Order(s): SCAN DOC: HEAD OF QUALITY * Provider, Scanning - 01/10/2012 1:46 PM [...] 3:45 PM EST Geovanna Dixon JrFlorencio 1975 [id number] Inpatient Endocrinology Glucose Management Consult Date of Consultation: 01/06/2012 Place of Consultation: [place] Consult Requested by: Dr. Tovar, [place] Surgery Reason for Consultation: Geovanna Dixon Jr. is a 36 y.o. male who was admitted on 12/29/2011 for the diagnosis of CAD now s/p CABG x2 with Dr. Tovar, POD #2. We are asked to see him to assist with diabetes management and to provide a review of his retirement diabetes plan. Diabetes History: Geovanna Dixon Jr. [...] Diabetes Care: Medications: None Monitoring: None Diet: [facility] Healthy No Known Allergies Past Medical History: [...] considerations about using metformin in Prediabetics: ?? [place] Diabetes Prevention Program (DPP) as well as other minor studies and meta-analyses hasconvincingly demonstrated the efficacy of metformin in this patient group [pre-diabetics]. In addition, results of the 10 year DPP follow up have recently been published, demonstrating the retirement safety and sustainability of metformin treatment benefits [...] - will be starting Cardiac rehab at [facility], encouraged to increase physical activity [...] metformin 500 mg QD Darcie Lange APRN [facility] Endocrinology Diabetes Management [phone] Pager [phone] This case was discussed with Dr. Christina [...] Course: Geovanna Dixon Jr. was admitted to [facility] on 12/29/2011 to the cardiologyservice [...] Medications: Geovanna Dixon Jr. Home Medication Instructions [id number]:[id number] Printed on:01/08/12 3361 Medication Information simvastatin (ZOCOR) 20 mg tablet [...] Anne Tovar and/or the Cardiothoracic Surgery [facility]ician [facility] Docent Team may be reached at . Activity [...] Dr. Inna Tovar. You may use a [place] Track or treadmill but avoid any pulling [...] would be to continue to go [place]. He has quit this way before and [...] only 10% of those who quit [place] are able to be successful. The calculated savings once he quits smoking would be $54 a week, $234 a month, and $2803 a year. If he quits now his savings will be $28,030 in 10 years. The patient was provided with a [facility] Smoking Cessation packet and the contents have been reviewed with him. The patient now has the Quit line number for [place] and has also been encouraged to use this ifneeded for support. In addition he was in agreement with a referral to the [place] Quitnetwork and a referral was faxed to [...] Some considerations about using metformin in Prediabetics: [place] Diabetes Prevention Program (DPP) as well as other minor studies and meta-analyses has convincingly demonstrated the efficacy of metformin in this patient group [pre-diabetics]. In addition, results of the 10 year DPP follow up have recently been published, demonstrating the long wall shear operator safety and sustainability of metformin treatment [...] - will be starting Cardiac rehab at [facility], encouraged to increase physical activity as advised by cardiologists Weight Loss - A 7% weight loss could significantly improve his BG control Tobacco cessation - There is growing evidence that cigarette smokers are more prone than the general population to develop T2DM. Increase in insulin resistance with tobacco use. Darcie Lange APRN [facility] Endocrinology Diabetes Management [phone] Medications: Take only those medications listed on [...] should resume a low fat, low cholesterol, [place] Heart Association Diet. Driving: No driving for [...] in outpatient Phase 2 Cardiac Rehabilitation at [facility] . A referral will be sent to this program. He was given contact information and shouldexpect to be contacted by the program within 1-2 weeks after discharge from [facility]. Arrangements for VNA/home care: PATIENT'S LOCATION: Geovanna Dixon Jr. [address] [place] [address] There is no home phone number on file. Telephone Information: In discussion with the attending physician, it is certified that this patient is under their care and that they, or a nurse practitioner, clinical nurse specialist or physician's political science research assistant who is working directly with them, [...] for services as follows: HOME HEALTH AGENCY: [facility]. PHONE: [phone] FAX: [phone] RN orders: Cardiopulmonary assessment, incisional assessment, assess [...] issues please call the Cardiac SurgeryOffice at [phone] FOR MEDICARE ONLY: (please delete this section if not Medicare) In discussion with the attending physician, it is certified that the clinical findings support thatthis patient is homebound (i.e. absences from home require considerable and taxing effort and are for medical reasons or spiritism services of infrequently or of short duration [...] nurse practitioner, clinical nurse specialist or physician's political science research assistant who is working directly with them, [...] effort and are for medical reasons or spiritism services of infrequently or of short duration when for other reasons) Please note that any additional orders needs or changes will need to be obtained from this patient's PCP: PATRIC AL MD [phone] All VNA agencies which cover the area of patient's residence have been reviewed, either verbally feli writing, and patient/family have chosen the indicated home health care agency for home services. Comments: Questions: Responses: Agency name and contact information [facility] Patient location post discharge home What services are requested Start date 01/10/2012 Responsible MD post discharge contact info PCP RN to remove chest tube sutures on or after 01/13/12. Signed: Ricky Graham PA-C [facility] Section of Cardiothoracic Surgery Date: 01/08/12 CC: MD [facility] [address] [place] [address] * Op Note - Inna Tovar MD - 01/04/2012 3:55 PM EST [facility] Operative Note Patient Name: Geovanna Dixon Jr. : [id number] MR#: [id number] Case Date: 01/04/2012 Surgeon: Surgeon(s) and Role: [...] enlarged. There was diffuse disease in all [place] vessels. The OFELIA and vein were of excellent quality. The lungs had early emphysematous changes. Procedure Details: The patient was brought to the operating room and given general anesthesia. A George West-Haley catheter, radial arterial line, and Mendez catheter [...] Note Patient Name: Geovanna Dixon Jr. : [id number] MR#: [id number] Case Date: 01/04/2012 Surgeon: Surgeon(s) and Role: [...] for Consult: We are seeing Geovanna Dixon JrFlorencio at the request of Dr Rene for the evaluation of fever and leucocytosis Admission date: 12/29/2011 HPI: Geovanna Dixon Jr. is a 36 y.o. 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 No recent out door activities or [...] 10/23/2024 1:00 PM EST Appointment XRay at [address] [place] [address] Isabela Hayward CONCESSION WORKER [facility] [place] [address] 11/09/2024 1:30 PM EST Office Visit Infectious Disease at [facility] [place] [phone] Isabela Hayward, RESHMA [facility] [place] [address] 11/10/2024 10:00 AM EST Office Visit [place] [address] Dai Whitmna APRN 11/21/2024 2:15 PM EST Office Visit [place] [address] Dayanara Grover MD [facility] [place] [address] Scheduled Referrals Name Type Priority Associated Diagnoses Orde r Schedule REFERRAL TO CARDIAC REHAB Outpatient Referral Routine Chest pain Ordered: 01/08/2012 documented as of this encounter Procedures Procedure Name Priority Date/Time Associated Diagnosis Comments CARDIAC CATHETERIZATION Routine 01/11/20 12 11:04 AM EST LAB SCAN 01/10/2012 1:46 PM EST HEAD OF QUALITY SCAN 01/10/2012 1:46 PM EST CARDIAC CATH [...] 01/05/20 12 2:00 AM EST CARDIAC ENZYMES ([facility]/CGP) Routine 01/05/2012 2:00 AM EST CREATININE Routine [...] 6:02 AM EST DIFFERENTIAL, AUTOMATED Routine 01/02/20 6:02 AM EST APTT STAT 01/02/2012 6:02 [...] Routine 12/30/2011 4:14 PM EST CARDIAC ENZYMES ([facility]/CGP) STAT 12/30/2011 2:08 PM EST APTT STAT 12/30/2011 2:08 PM EST HIV SCREEN, 4TH GENERATION ([facility]/CGP/APD/NLH) Routine 12/30/2011 10:18 AM EST ECHOCARDIOGRAM TRANSTHORACIC [...] Routine 12/30/2011 7:07 AM EST CARDIAC ENZYMES ([facility]/CGP) STAT 12/30/2011 5:45 AM EST APTT STAT [...] (Bezet) 453 ms MUSE SYSTEM Calculated P Maddock 41 degrees MUSE SYSTEM Calculated R Maddock 25 degrees MUSE SYSTEM Calculated T Maddock 74 degrees MUSE SYSTEM INTERPRETATION Sinus tachycardia [...] SCAN EXT O RDR/RSLT * SCAN DOC: HEAD OF QUALITY (01/10/2012 1:46 PM EST) Anatomical Region Laterality Modality Other Narrative 01/11/2012 8:32 AM EST Procedure Note Provider, Scanning - 01/10/2012 1:46 PM EST Scanning Provider MEDIA MGR SCAN EXT O RDR/RSLT * POCT GLUCOSE LAB USE ONLY (01/08/2012 12:00 PM EST) [facility] Glucose, POC 106 60 - 199 mg/dL [facility] Comment: Supplemental ranges: <110 mg/dL before meals <200 mg/dL all other times of the day Blood specimen (specimen) 01/08/2012 12:00 PM EST 01/08/2012 12:00 PM EST Andi Rene MD POINT OF CARE TEST O GILDA Performing Organization Address [facility] de Phone Number [facility] * Potassium (01/08/2012 10:05 AM EST) Potassium 4.2 3.5 - 5.0 mmol/L [facility] Comment: Please note: ??Patients with WBC [...] CHEMISTRY ORDERABLES Performing Organization Address [facility] de Phone Number [facility] * POCT GLUCOSE LAB USE ONLY (01/08/2012 7:21 AM EST) Glucose, POC 144 60 - 199 mg/dL [facility] Comment: Supplemental ranges: <110 mg/dL before meals <200 mg/dL all other times of the day Blood specimen (specimen) 01/08/2012 7:21 AM EST 01/08/2012 7:21 AM EST Andi Rene MD POINT OF CARE TEST Stephanie VO Performing Organization Address [facility] de Phone Number [facility] * POCT GLUCOSE LAB USE ONLY (01/07/2012 8:43 PM EST) Glucose, POC 179 60 - 199 mg/dL [facility] Comment: Supplemental ranges: <110 mg/dL before meals <200 mg/dL all other times of the day Blood specimen (specimen) 01/07/2012 8:43 PM EST 01/07/2012 8:43 PM EST Andi Rene MD POINT OF CARE TEST O RDTYESHA Performing Organization Address [facility] de Phone Number [facility] * POCT GLUCOSE LAB USE ONLY (01/07/2012 4:47 PM EST) Glucose, POC 128 60 - 199 mg/dL [facility] Comment: Supplemental ranges: <110 mg/dL before meals <200 mg/dL all other times of the day Blood specimen (specimen) 01/07/2012 4:47 PM EST 01/07/2012 4:47 PM EST Andi Rene MD POINT OF CARE TEST O GILDA Performing Organization Address [facility] de Phone Number [facility] * Potassium (01/07/2012 11:42 AM EST) Potassium 3.6 3.5 - 5.0 mmol/L [facility] Comment: Please note: ??Patients with WBC [...] CHEMISTRY ORDERABLES Performing Organization Address [facility] [facility] de Phone Number [facility] * POCT GLUCOSE LAB USE ONLY (01/07/2012 11:41 AM EST) Glucose, POC 114 60 - 199 mg/dL [facility] Comment: Supplemental ranges: <110 mg/dL before [...] or postoperative mediastinal hematoma. ?? Procedure Note CzLay ve[place] MD - 01/07/2012 TWO-VIEW CHEST: INDICATION: Status [...] MD HEMATOLOGY ORDERABLE S Performing Organization Address [facility] Co de Phone Number [facility] * Microalbumin, urine, random (01/06/2012 9:03 PM EST) Creatinine, Urine 136 mg/dL [facility] Albumin, Urine 14.4 mg/L CERNE R MILLENNIUM Albumin / Creatinin Ratio, Urine 11 mcg/mg Cr [facility] Comment: Reference Range* Random collection (mcg/mg creatinine) Normal ?<30 Microalbuminuria ?? 30 - 300 Clinical Albuminuria ?? >300 *[place] [employer]. Diabetic Nephropathy. Diabetes Care 1997;(Suppl 1):S24-S27 Exercise within 24 hour, infection, fever, CHF, marked hyperglycemia, and marked hypertension may elevate urinary albumin excretion over baseline values. Urine specimen (specimen) 01/06/2012 9:03 PM EST 01/06/2012 10:28 PM EST Narrative Resulting Agency Comment Spec In Lab Inna Tovar MD URINE ORDERABLES Performing Organization Address [facility] de Phone Number [facility] * POCT GLUCOSE LAB USE ONLY (01/06/2012 7:46 PM EST) Glucose, POC 127 60 - 199 mg/dL [facility] Comment: Supplemental ranges: <110 mg/dL before meals <200 mg/dL all other times of the day Blood specimen (specimen) 01/06/2012 7:46 PM EST 01/06/2012 7:46 PM EST Andi Rene MD POINT OF CARE TEST O RDERABLES Performing Organization Address [facility] Co de Phone Number [facility] * POCT GLUCOSE LAB USE ONLY (01/06/2012 4:24 PM EST) Glucose, POC 131 60 - 199 mg/dL [facility] Comment: Supplemental ranges: <110 mg/dL before meals <200 mg/dL all other times of the day Blood specimen (specimen) 01/06/2012 4:24 PM EST 01/06/2012 4:24 PM EST Andi Rene MD POINT OF CARE TEST O GILDA Performing Organization Address [facility] Phone Number [facility] * POCT GLUCOSE LAB USE ONLY (01/06/2012 12:06 PM EST) Glucose, POC 160 60 - 199 mg/dL [facility] Comment: Supplemental ranges: <110 mg/dL before meals <200 mg/dL all other times of the day Blood specimen (specimen) 01/06/2012 12:06 PM EST 01/06/2012 12:06 PM EST Andi Rene MD POINT OF CARE TEST Stephanie VO Performing Organization Address [facility] Phone Number [facility] * Potassium (01/06/2012 9:59 AM EST) [facility] Potassium 4.0 3.5 - 5.0 mmol/L [facility] Comment: Please note: ??Patients with WBC [...] Tovar MD CHEMISTRY ORDERABLES Performing Organization Address [facility] Phone Number [facility] * POCT GLUCOSE LAB USE ONLY (01/06/2012 6:53 AM EST) Glucose, POC 168 60 - 199 mg/dL [facility] Comment: Supplemental ranges: <110 mg/dL before meals <200 mg/dL all other times of the day Blood specimen (specimen) 01/06/2012 6:53 AM EST 01/06/2012 6:53 AM EST Andi Rene MD POINT OF CARE TEST O GILDA Performing Organization Address [facility] de Phone Number [facility] * POCT GLUCOSE LAB USE ONLY (01/06/2012 5:03 AM EST) Glucose, POC 147 60 - 199 mg/dL [facility] MILLENNIUM Comment: Supplemental ranges: <110 mg/dL before meals <200 mg/dL all other times of the day Blood specimen (specimen) 01/06/2012 5:03 AM EST 01/06/2012 5:03 AM EST Andi Rene MD POINT OF CARE TEST O GILDA Performing Organization Address [facility] de Phone Number [facility] * POCT GLUCOSE LAB USE ONLY (01/06/2012 3:16 AM EST) Glucose, POC 126 60 - 199 mg/dL [facility] MILLENNIUM Comment: Supplemental ranges: <110 mg/dL before meals <200 mg/dL all other times of the day Blood specimen (specimen) 01/06/2012 3:16 AM EST 01/06/2012 3:16 AM EST Andi Rene MD POINT OF CARE TEST O GILDA Performing Organization Address [facility] de Phone Number [facility] * POCT GLUCOSE LAB USE ONLY (01/06/2012 1:12 AM EST) Glucose, POC 135 60 - 199 mg/dL [facility] Comment: Supplemental ranges: <110 mg/dL before meals <200 mg/dL all other times of the day Blood specimen (specimen) 01/06/2012 1:12 AM EST 01/06/2012 1:12 AM EST Andi Rene MD POINT OF CARE TEST O RDERAHERNANDEZ Performing Organization Address [facility]/ZIP Co de Phone Number [facility] * POCT GLUCOSE LAB USE ONLY (01/05/2012 11:52 PM EST) Glucose, POC 133 60 - 199 mg/dL [facility] Comment: Supplemental ranges: <110 mg/dL before meals <200 mg/dL all other times of the day Blood specimen (specimen) 01/05/2012 11:52 PM EST 01/05/2012 11:52 PM EST Andi Rene MD POINT OF CARE TEST O GILDA Performing Organization Address [facility] Co de Phone Number [facility] * POCT GLUCOSE LAB USE ONLY (01/05/2012 10:54 PM EST) Glucose, POC 130 60 - 199 mg/dL [facility] Comment: Supplemental ranges: <110 mg/dL before meals <200 mg/dL all other times of the day Blood specimen (specimen) 01/05/2012 10:54 PM EST 01/05/2012 10:54 PM EST Andi Rene MD POINT OF CARE TEST O GILDA Performing Organization Address [facility] Co de Phone Number [facility] * POCT GLUCOSE LAB USE ONLY (01/05/2012 9:51 PM EST) Glucose, POC 132 60 - 199 mg/dL [facility] Comment: Supplemental ranges: <110 mg/dL before meals <200 mg/dL all other times of the day Blood specimen (specimen) 01/05/2012 9:51 PM EST 01/05/2012 9:51 PM EST Andi Rene MD POINT OF CARE TEST O RDERAHERNANDEZ Performing Organization Address [facility]/ZIP Co de Phone Number [facility] * POCT GLUCOSE LAB USE ONLY (01/05/2012 8:50 PM EST) Glucose, POC 126 60 - 199 mg/dL [facility] Comment: Supplemental ranges: <110 mg/dL before meals <200 mg/dL all other times of the day Blood specimen (specimen) 01/05/2012 8:50 PM EST 01/05/2012 8:50 PM EST Andi Rene MD POINT OF CARE TEST O GILDA Performing Organization Address [facility] de Phone Number [facility] * POCT GLUCOSE LAB USE ONLY (01/05/2012 8:07 PM EST) Glucose, POC 126 60 - 199 mg/dL [facility] Comment: Supplemental ranges: <110 mg/dL before meals <200 mg/dL all other times of the day Blood specimen (specimen) 01/05/2012 8:07 PM EST 01/05/2012 8:07 PM EST Andi Rene MD POINT OF CARE TEST O GILDA Performing Organization Address [facility] de Phone Number [facility] * POCT GLUCOSE LAB USE ONLY (01/05/2012 6:57 PM EST) Glucose, POC 137 60 - 199 mg/dL [facility] Comment: Supplemental ranges: <110 mg/dL before meals <200 mg/dL all other times of the day Blood specimen (specimen) 01/05/2012 6:57 PM EST 01/05/2012 6:57 PM EST Andi Rene MD POINT OF CARE TEST O GILDA Performing Organization Address [facility] de Phone Number [facility] * POCT GLUCOSE LAB USE ONLY (01/05/2012 4:59 PM EST) Glucose, POC 147 60 - 199 mg/dL [facility] Comment: Supplemental ranges: <110 mg/dL before meals <200 mg/dL all other times of the day Blood specimen (specimen) 01/05/2012 4:59 PM EST 01/05/2012 4:59 PM EST Andi Rene MD POINT OF CARE TEST O RDTYESHA Performing Organization Address [facility] Co de Phone Number [facility] * POCT GLUCOSE LAB USE ONLY (01/05/2012 1:05 PM EST) Glucose, POC 154 60 - 199 mg/dL [facility] Comment: Supplemental ranges: <110 mg/dL before meals <200 mg/dL all other times of the day Blood specimen (specimen) 01/05/2012 1:05 PM EST 01/05/2012 1:05 PM EST Andi Rene MD POINT OF CARE TEST O GILDA Performing Organization Address [facility] de Phone Number [facility] * POCT GLUCOSE LAB USE ONLY (01/05/2012 12:42 PM EST) Glucose, POC 148 60 - 199 mg/dL [facility] MILLENNIUM Comment: Supplemental ranges: <110 mg/dL before meals <200 mg/dL all other times of the day Blood specimen (specimen) 01/05/2012 12:42 PM EST 01/05/2012 12:42 PM EST Andi Rene MD POINT OF CARE TEST O GILDA Performing Organization Address [facility] Co de Phone Number [facility] * POCT GLUCOSE LAB USE ONLY (01/05/2012 9:54 AM EST) Glucose, POC 145 60 - 199 mg/dL [facility] MILLENNIUM Comment: Supplemental ranges: <110 mg/dL before meals <200 mg/dL all other times of the day Blood specimen (specimen) 01/05/2012 9:54 AM EST 01/05/2012 9:54 AM EST Andi Rene MD POINT OF CARE TEST O RDERABLES Performing Organization Address [facility] Co de Phone Number [facility] * POCT GLUCOSE LAB USE ONLY (01/05/2012 8:00 AM EST) Glucose, POC 168 60 - 199 mg/dL [facility] Comment: Supplemental ranges: <110 mg/dL before meals <200 mg/dL all other times of the day Blood specimen (specimen) 01/05/2012 8:00 AM EST 01/05/2012 8:00 AM EST Andi Rene MD POINT OF CARE TEST O RDERAHERNANDEZ Performing Organization Address [facility] Co de Phone Number [facility] * POCT GLUCOSE LAB USE ONLY (01/05/2012 5:58 AM EST) Glucose, POC 164 60 - 199 mg/dL [facility] Comment: Supplemental ranges: <110 mg/dL before meals <200 mg/dL all other times of the day Blood specimen (specimen) 01/05/2012 5:58 AM EST 01/05/2012 5:58 AM EST Andi Rene MD POINT OF CARE TEST O GILDA Performing Organization Address [facility] Co de Phone Number [facility] * POCT GLUCOSE LAB USE ONLY (01/05/2012 4:12 AM EST) Glucose, POC 148 60 - 199 mg/dL [facility] Comment: Supplemental ranges: <110 mg/dL before meals <200 mg/dL all other times of the day Blood specimen (specimen) 01/05/2012 4:12 AM EST 01/05/2012 4:12 AM EST Andi Rene MD POINT OF CARE TEST O RDERAHERNANDEZ Performing Organization Address [facility] Co de Phone Number [facility] * POCT GLUCOSE LAB USE ONLY (01/05/2012 2:05 AM EST) Glucose, POC 148 60 - 199 mg/dL [facility] Comment: Supplemental ranges: <110 mg/dL before meals <200 mg/dL all other times of the day Blood specimen (specimen) 01/05/2012 2:05 AM EST 01/05/2012 2:05 AM EST Andi Ruiz Rene MD POINT OF CARE TEST O [...] MD HEMATOLOGY ORDERABLE S Performing Organization Address [facility] de Phone Number ARI[facility] NELSON * (ABNORMAL) Cardiac Enzymes (01/05/2012 2:00 AM EST) Troponin-T 0.39(H) <=0.03 ng/mL [facility] Comment: 0.03 ng/mL: Represents the 99th [...] consensus document of the Joint Society of Cardiology/[place] College [employer] Committee for the redefinition of myocardial infarction. Journal of the [place] College [employer] 2000; 36: 959-969] Creatine Kinase 436(H) 0 - 200 unit/L [facility] Blood specimen (specimen) 01/05/2012 2:00 AM EST 01/05/2012 2:11 AM EST Narrative Resulting Agency Comment Spec In Lab Sarthak Pollard MD CHEMISTRY ORDERABLES Performing Organization Address [facility] de Phone Number [facility] NEL[facility] * Potassium (01/05/2012 2:00 AM EST) Potassium 4.4 3.5 - 5.0 mmol/L [facility] Comment: Please note: ??Patients with WBC [...] Pollard MD CHEMISTRY ORDERABLES Performing Organization Address [facility] Phone Number [facility] * (ABNORMAL) Glucose, fasting (01/05/2012 2:00 AM EST) Glucose Fasting 148(H) 65 - 99 mg/dL [facility] Comment: ?Fasting* Glucose Interpretive Criteria Normal [...] of Diabetes Mellitus, Position Statement from the [place] [employer]. ??Diabetes Care, Volume 33, Supplement 1, Nov 2009 Blood specimen (specimen) 01/05/2012 2:00 AM EST 01/05/2012 2:11 AM EST Narrative Resulting Agency Comment Spec In Lab Sarthak Pollard MD CHEMISTRY ORDERABLES Performing Organization Address [facility] Phone Number [facility] NELSON * Creatinine, serum (01/05/2012 2:00 AM EST) Creatinine 0.86 0.80 - 1.50 mg/dL [facility] Est Glomerular Filtration Rate >60 >=60 [facility] Comment: The National Kidney Disease Education [...] Pollard MD CHEMISTRY ORDERABLES Performing Organization Address [facility] Co de Phone Number [facility] NELSON * BUN (01/05/2012 2:00 AM EST) Blood Urea Nitrogen 10 10 - 20 mg/dL [facility] Blood specimen (specimen) 01/05/2012 2:00 AM EST 01/05/2012 2:11 AM EST Narrative Resulting Agency Comment Spec In Lab Sarthak Pollard MD CHEMISTRY ORDERABLES Performing Organization Address [facility] Co de Phone Number [facility] * (ABNORMAL) CBC (with Diff) (01/05/2012 2:00 AM EST) White Blood Cell 24.6(H) 4.0 - 10.0 x10(3)/mc L [facility] Red Blood Cell 4.27(L) 4.63 - 6.08 x10(6)/mc L [facility] Hemoglobin 12.8(L) 13.7 - 17.5 gm/dL [facility] Hematocrit 37.9(L) 40.0 - 51.0 % [facility] Mean Cell Volume 88.8 79.0 - 92.0 fL [facility] Mean Cell Hemoglobin 30.0 25.6 - 32.2 pg [facility] Mean Cell Hemoglobin Concentration 33.8 32.0 - 36.5 gm/dL [facility] Platelet 294 145 - 370 x10(3)/mc L [facility] RDW Standard Deviation 42.2 35.0 - 46.0 fL [facility] RDW coefficient of variation 13.0 10.9 - 14.4 % [facility] Mean Platelet Volume 9.7 9.0 - 12.0 fL [facility] Blood specimen (specimen) 01/05/2012 2:00 AM EST 01/05/2012 2:11 AM EST Narrative Resulting Agency Comment Spec In Lab Sarthak Pollard MD HEMATOLOGY ORDERABLE S Performing Organization Address [facility] Co de Phone Number [facility] * POCT GLUCOSE LAB USE ONLY (01/04/2012 11:58 PM EST) Glucose, POC 136 60 - 199 mg/dL [facility] Comment: Supplemental ranges: <110 mg/dL before meals <200 mg/dL all other times of the day Blood specimen (specimen) 01/04/2012 11:58 PM EST 01/04/2012 11:58 PM EST Andi Rene MD POINT OF CARE TEST O RDERABLES Performing Organization Address [facility] Co de Phone Number [facility] * POCT GLUCOSE LAB USE ONLY (01/04/2012 9:00 PM EST) Glucose, POC 143 60 - 199 mg/dL [facility] Comment: Supplemental ranges: <110 mg/dL before meals <200 mg/dL all other times of the day Blood specimen (specimen) 01/04/2012 9:00 PM EST 01/04/2012 9:00 PM EST Andi Rene MD POINT OF CARE TEST O RDERABLES Performing Organization Address [facility] Phone Number [facility] * GLUCOSE, RANDOM (01/04/2012 9:00 PM EST) Glucose 128 60 - 199 mg/dL [facility] Comment:Diabetes: >=200 mg/d L plus symptoms Blood specimen (specimen) 01/04/2012 9:00 PM EST 01/04/2012 9:08 PM EST Narrative Resulting Agency Comment Spec In Lab Sarthak Pollard MD CHEMISTRY ORDERABLES Performing Organization Address [facility] Phone Number [facility] * (ABNORMAL) Hemoglobin (01/04/2012 9:00 PM EST) Hemoglobin 13.6(L) 13.7 - 17.5 gm/dL [facility] Blood specimen (specimen) 01/04/2012 9:00 PM EST 01/04/2012 9:08 PM EST Narrative Resulting Agency Comment Spec In Lab Sarthak Pollard MD HEMATOLOGY ORDERABLE S Performing Organization Address [facility] Phone Number [facility] * Potassium (01/04/2012 9:00 PM EST) Potassium 4.7 3.5 - 5.0 mmol/L [facility] Comment: Please note: ??Patients with WBC [...] Comment: Total Hemoglobin (in gm/dL) ?Based on [facility] Hematology ranges: ?Age ?Reference Range Less than [...] Comment: Total Hemoglobin (in gm/dL) ?Based on [facility] Hematology ranges: ?Age ?Reference Range Less than [...] Comment: Total Hemoglobin (in gm/dL) ?Based on [facility] Hematology ranges: ?Age ?Reference Range Less than [...] CARE TEST O RDERABLES Performing Organization Address [facility] Co de Phone Number [facility] * EKG 12 Lead (01/04/2012 4:26 PM EST) Ventricular rate 72 BPM MUSE SYSTEM Atrial Rate 72 BPM MUSE SYSTEM P-R Interval 174 ms MUSE SYSTEM QRS Duration 96 ms MUSE SYSTEM Q-T Interval 416 ms MUSE SYSTEM QTC Calculated (Bezet) 455 ms MUSE SYSTEM Calculated P Maddock 48 degrees MUSE SYSTEM Calculated R Maddock 23 degrees MUSE SYSTEM Calculated T Maddock 71 degrees MUSE SYSTEM INTERPRETATION Normal sinus rhythm Normal ECG When compared with ECG of 30-DEC-2011 17:24, Vent. rate has decreased BY ??35 BPM Minimal criteria for Inferior infarct are no longer Present Nonspecific T wave abnormality, improved in Anterolateral leads Confirmed by fellow MD Steve, Luca ([id number]) on 01/05/2012 10:22:57 AM Confirmed by MD DELMIS, SARTHAK ([id number]) on 01/05/2012 1:30:02 PM MUSE SYSTEM 01/04/2012 4:26 PM EST 01/05/2012 1:30 PM EST Sarthak Pollard MD ECG ORDERABLES Performing Organization Address [facility] Co de Phone Number MUSE [...] Sarthak Pollard MD HEMATOLOGY ORDERABLE S [facility] * (ABNORMAL) BLOOD GAS 2 ARTERIAL (01/04/2012 3:28 PM EST) pH, Arterial 7.32(L) [facility] PCO2, Arterial 51(Critica l) mmHg [facility] Comment: Noted by electrical and instrumentation mechanic. MTF PO2, Arterial 145(H) mmHg [facility] Bicarbonate, Arterial 25.5 mmol/L [facility] Base Excess, Arterial -0.7 mmol/L [facility] Hgb Blood Gas 11.1(L) gm/dL [facility] Comment: Total Hemoglobin (in gm/dL) ?Based on [facility] Hematology ranges: ?Age ?Reference Range Less than [...] CARE TEST O RDERABLES Performing Organization Address [facility] Co de Phone Number [facility] * THROMBIN TIME (01/04/2012 3:28 PM EST) Thrombin Time 17 15 - 20 sec [facility] Blood specimen (specimen) 01/04/2012 3:28 PM EST 01/04/2012 3:28 PM EST Narrative Resulting Agency Comment Spec In Lab Sarthak Pollard MD HEMATOLOGY ORDERABLE S Performing Organization Address [facility] Phone Number [facility] * FIBRINOGEN (01/04/2012 3:28 PM EST) Fibrinogen 364 200 - 470 mg/dL [facility] Comment:Called by: LEILANI, Read back by: AKANKSHA SAMPSON, Date/Time:01/04/12 15:45. Blood specimen (specimen) 01/04/2012 3:28 PM EST 01/04/2012 3:28 PM EST Narrative Resulting Agency Comment Spec In Lab Sarthak Pollard MD HEMATOLOGY ORDERABLE S Performing Organization Address [facility] Phone Number [facility] * APTT (01/04/2012 3:28 PM EST) Partial Thromboplastin Time 30 25 - 35 sec [facility] Comment: Recommended therapeutic PTT range for full dose unfractionated heparin is 80-114 seconds. Blood specimen (specimen) 01/04/2012 3:28 PM EST 01/04/2012 3:28 PM EST Narrative Resulting Agency Comment Spec In Lab Sarthak Pollard MD HEMATOLOGY ORDERABLE S Performing Organization Address [facility] Co de Phone Number [facility] * (ABNORMAL) PROTHROMBIN TIME (01/04/2012 3:28 PM EST) Prothrombin Time 17.8(H) 11.9 - 14.7 sec [facility] Comment: [facility] Transfusion Committee Guidelines: INR less than [...] Resulting Agency Comment Spec In Lab Sarthak Pollrad MD HEMATOLOGY ORDERABLE S [facility] * (ABNORMAL) BLOOD GAS 2 ARTERIAL (01/04/2012 2:28 PM EST) pH, Arterial 7.31(L) [facility] PCO2, Arterial 53(Critica l) mmHg [facility] Comment: Noted by electrical and instrumentation mechanic. MTF PO2, Arterial 296(H) mmHg [facility] Bicarbonate, Arterial 26.3(H) mmol/L [facility] Base Excess, Arterial 0.1 mmol/L [facility] Hgb Blood Gas 10.2(L) gm/dL [facility] Comment: Total Hemoglobin (in gm/dL) ?Based on [facility] Hematology ranges: ?Age ?Reference Range Less than [...] CARE TEST O RDERABLES Performing Organization Address City/[facility] Co de Phone Number [facility] * FIBRINOGEN (01/04/2012 2:25 PM EST) Fibrinogen 356 200 - 470 mg/dL [facility] Comment:Called by: [facility], Read back by: AKANKSHA SAMPSON, Date/Time:01/04/12 14:49. Blood specimen (specimen) 01/04/2012 2:25 PM EST 01/04/2012 2:32 PM EST Narrative Resulting Agency Comment Spec In Lab Sarthak Pollard MD HEMATOLOGY ORDERABLE S Performing Organization Address City/[facility]/ZIP Co de Phone Number [facility] * PLATELET COUNT (01/04/2012 2:25 PM EST) [...] Comment: Total Hemoglobin (in gm/dL) ?Based on [facility] Hematology ranges: ?Age ?Reference Range Less than [...] MD POINT OF CARE TEST O GILDA [facility] * Prepare Coag Factors (Non-Hemophilia) (01/04/2012 12:05 PM EST) Dispensed? Yes ARIAN NELSON Blood specimen (specimen) 01/04/2012 12:05 PM EST 01/04/2012 12:01 PM EST Narrative Resulting Agency Comment Spec In Lab Inna Tovar MD BLOOD BANK PRODUCT O RDERAHERNANDEZ ARIAN NELSON * Prepare RBC (01/04/2012 12:05 [...] 0.0 - 0.2 x10(3)/mc L CERNER MILLENNIUM [place] Absolute Manual 0.3(H) 0.0 - 0.0 x10(3)/mc [...] of Diabetes Mellitus, Position Statement from the [place] [employer]. ??Diabetes Care, Volume 33, Supplement [...] In Lab Andi Rene MD CHEMISTRY ORDERABLES [facility] * (ABNORMAL) CBC (with Diff) (01/04/2012 4:40 [...] Hemoglobin Concentration 34.2 32.0 - 36.5 gm/dL [facility] Platelet 326 145 - 370 x10(3)/mc L [facility] M[facility] RDW Standard Deviation 40.4 35.0 - 46.0 fL [facility] RDW coefficient of variation 12.6 10.9 - 14.4 % [facility] MILL[facility] Mean Platelet Volume 9.8 9.0 - 12.0 fL [facility] MILL[facility] Blood specimen (specimen) 01/04/2012 4:40 AM EST 01/04/2012 4:52 AM EST Narrative Resulting Agency Comment Spec In Lab Remigio Ceron MD HEMATOLOGY ORDERABLE S Performing Organization Address [facility] Co de Phone Number [facility] * (ABNORMAL) APTT (01/04/2012 4:40 AM EST) Partial Thromboplastin Time 103(H) 25 - 35 sec [facility] Comment: Recommended therapeutic PTT range for full dose unfractionated heparin is 80-114 seconds. Blood specimen (specimen) 01/04/2012 4:40 AM EST 01/04/2012 4:52 AM EST Narrative Resulting Agency Comment Spec In Lab Sarthak Pollard MD HEMATOLOGY ORDERABLE S Performing Organization Address [facility] Phone Number [facility] * (ABNORMAL) APTT (01/03/2012 7:38 PM EST) Partial Thromboplastin Time 98(H) 25 - 35 sec [facility] Comment: Recommended therapeutic PTT range for full dose unfractionated heparin is 80-114 seconds. Blood specimen (specimen) 01/03/2012 7:38 PM EST 01/03/2012 7:53 PM EST Narrative Resulting Agency Comment Spec In Lab Sarthak Pollard MD HEMATOLOGY ORDERABLE S Performing Organization Address [facility] Phone Number [facility] * (ABNORMAL) APTT (01/03/2012 12:17 PM EST) [...] MD HEMATOLOGY ORDERABLE S Performing Organization Address [facility]/ZIP Co de Phone Number [facility] * ANTIBODY SCREEN (01/03/2012 6:15 AM EST) Ab Screen Interp Negative [facility] Expires at [id number] on: [id number] [facility] Blood specimen (specimen) 01/03/2012 6:15 AM EST 01/03/2012 6:35 AM EST Narrative Resulting Agency Comment Spec In Lab Sarthak Pollard MD BLOOD BANK LAB ORDER RANDELL Performing Organization Address [facility] Co de Phone Number [facility] * ABO/RH TYPING (01/03/2012 6:15 AM EST) Pathologist [facility] ABORH Type A Pos [facility] Blood specimen (specimen) 01/03/2012 6:15 AM EST 01/03/2012 6:35 AM EST Narrative Resulting Agency Comment Spec In Lab Sarthak Pollard MD BLOOD BANK LAB ORDER RANDELL Performing Organization Address [facility] Co de Phone Number [facility] * (ABNORMAL) APTT (01/03/2012 6:15 AM EST) Partial Thromboplastin Time 96(H) 25 - 35 sec [facility] Comment: Recommended therapeutic PTT range for full dose unfractionated heparin is 80-114 seconds. Blood specimen (specimen) 01/03/2012 6:15 AM EST 01/03/2012 6:23 AM EST Narrative Resulting Agency Comment Spec In Lab Sarthak Pollard MD HEMATOLOGY ORDERABLE S Performing Organization Address [facility] Co de Phone Number [facility] * (ABNORMAL) BMP w/fasting Glucose (01/03/2012 6:15 AM EST) Glucose Fasting 116(H) 65 - 99 mg/dL [facility] Comment: ?Fasting* Glucose Interpretive Criteria Normal [...] of Diabetes Mellitus, Position Statement from the [place] [employer]. ??Diabetes Care, Volume 33, Supplement [...] MD HEMATOLOGY ORDERABLE S Performing Organization Address [facility] de Phone Number CERNER MILLENNIUM * (ABNORMAL) APTT (01/02/2012 11:21 PM EST) Partial Thromboplastin Time 69(H) 25 - 35 sec [facility] MILLENNIUM Comment: Recommended therapeutic PTT range for full dose unfractionated heparin is 80-114 seconds. Blood specimen (specimen) 01/02/2012 11:21 PM EST 01/02/2012 11:24 PM EST Narrative Resulting Agency Comment Spec In Lab Sarthak Pollard MD HEMATOLOGY ORDERABLE S Performing Organization Address [facility] Phone Number CERNER MILLENNIUM * (ABNORMAL) APTT (01/02/2012 5:32 PM EST) Partial Thromboplastin Time 53(H) 25 - 35 sec [facility]ERNER MILLENNIUM Comment: Recommended therapeutic PTT range for full dose unfractionated heparin is 80-114 seconds. Blood specimen (specimen) 01/02/2012 5:32 PM EST 01/02/2012 5:38 PM EST Narrative Resulting Agency Comment Spec In Lab Sarthak Pollard MD HEMATOLOGY ORDERABLE S Performing Organization Address [facility] Phone Number [facility] MILLENNIUM * (ABNORMAL) APTT (01/02/2012 11:56 AM EST) Partial Thromboplastin Time 46(H) 25 - 35 sec [facility] MILL[facility]NI[facility] Comment: Recommended therapeutic PTT range for full dose unfractionated heparin is 80-114 seconds. Blood specimen (specimen) 01/02/2012 11:56 AM EST 01/02/2012 12:05 PM EST Narrative Resulting Agency Comment Spec In Lab Sarthak Pollard MD HEMATOLOGY ORDERABLE S Performing Organization Address [facility] Co de Phone Number CERNER [...] Absolute 0.10(H) 0.00 - 0.05 x10(3)/mc L CERBRIAN CAENNIUM Blood specimen (specimen) 01/02/2012 6:02 AM EST 01/02/2012 6:29 AM EST Remigio Ceron MD HEMATOLOGY ORDERABLE S [facility] * (ABNORMAL) APTT (01/02/2012 6:02 AM EST) Partial Thromboplastin Time 42(H) 25 - 35 sec ARIAN CERDAIUM Comment: [...] of Diabetes Mellitus, Position Statement from the [place] [employer]. ??Diabetes Care, Volume 33, Supplement [...] JILLIANBRIAN CAYARYIUM * (ABNORMAL) CBC (with Diff) (01/02/2012 6:02 AM EST) White Blood Cell 10.1(H) 4.0 - 10.0 x10(3)/mc L CERNER MILLENNIUM Red Blood Cell 4.42(L) 4.63 - 6.08 x10(6)/mc L CERNER MILLENNIUM Hemoglobin 13.1(L) 13.7 - 17.5 gm/dL JILLIANNER MILLENNIUM Hematocrit 39.0(L) 40.0 - 51.0 % [...] MD HEMATOLOGY ORDERABLE S Performing Organization Address [facility] Co de Phone Number CERNER [...] Hemoglobin Concentration 34.4 32.0 - 36.5 gm/dL [facility] Platelet 262 145 - 370 x10(3)/mc L [facility] RDW Standard Deviation 41.6 35.0 - 46.0 fL [facility] RDW coefficient of variation 12.9 10.9 - 14.4 % [facility] Mean Platelet Volume 10.1 9.0 - 12.0 fL [facility] Blood specimen (specimen) 01/01/2012 6:37 PM EST 01/01/2012 6:43 PM EST Narrative Resulting Agency Comment Spec In Lab Sarthak Pollard MD HEMATOLOGY ORDERABLE S Performing Organization Address [facility] Co hi Phone Number [facility] * APTT (01/01/2012 6:37 PM EST) Partial Thromboplastin Time 32 25 - 35 sec [facility] Comment: Recommended therapeutic PTT range for full dose unfractionated heparin is 80-114 seconds. Blood specimen (specimen) 01/01/2012 6:37 PM EST 01/01/2012 6:43 PM EST Narrative Resulting Agency Comment Spec In Lab Sarthak Pollard MD HEMATOLOGY ORDERABLE S Performing Organization Address [facility] Co hi Phone Number [facility] * POCT GLUCOSE LAB USE ONLY (01/01/2012 12:02 PM EST) Glucose, POC 99 60 - 199 mg/dL [facility] Comment: Supplemental ranges: <110 mg/dL before meals <200 mg/dL all other times of the day Blood specimen (specimen) 01/01/2012 12:02 PM EST 01/01/2012 12:02 PM EST Andi Rene MD POINT OF CARE TEST O RDERABLES Performing Organization Address [facility] Co de Phone Number [facility] * (ABNORMAL) APTT (01/01/2012 11:59 AM [...] Gran % 0.50 0.00 - 0.66 % [facility] Comment: Immature granulocytes(IG's)percentage and absolute count will include metamyelocytes, myelocytes, and promyelocytes. Blood smears from CBCs yielding IG's will be scanned manually for concordance. If this scan disagrees with the automated IG or if promyelocytes are noted, a manual differential will be performed. Immature Gran Absolute 0.07(H) 0.00 - 0.05 x10(3)/mc L [facility] Blood specimen (specimen) 01/01/2012 5:19 AM EST 01/01/2012 5:36 AM EST Remigio Ceron MD HEMATOLOGY ORDERABLE S Performing Organization Address [facility] Co de Phone Number [facility] * (ABNORMAL) APTT (01/01/2012 5:19 AM EST) Partial Thromboplastin Time 105(H) 25 - 35 sec [facility] Comment: Recommended therapeutic PTT range for full dose unfractionated heparin is 80-114 seconds. Blood specimen (specimen) 01/01/2012 5:19 AM EST 01/01/2012 5:36 AM EST Narrative Resulting Agency Comment Spec In Lab Remigio Ceron MD HEMATOLOGY ORDERABLE S Performing Organization Address [facility] Co de Phone Number [facility] * (ABNORMAL) BMP w/fasting Glucose (01/01/2012 5:19 AM EST) Glucose Fasting 121(H) 65 - 99 mg/dL [facility] Comment: ?Fasting* Glucose Interpretive Criteria Normal [...] of Diabetes Mellitus, Position Statement from the [place] [employer]. ??Diabetes Care, Volume 33, Supplement [...] MD HEMATOLOGY ORDERABLE S Performing Organization Address [facility] Co de Phone Number [facility] * (ABNORMAL) APTT (12/31/2011 11:01 PM EST) Partial Thromboplastin Time 72(H) 25 - 35 sec [facility] Comment: Recommended therapeutic PTT range for full dose unfractionated heparin is 80-114 seconds. Blood specimen (specimen) 12/31/2011 11:01 PM EST 12/31/2011 11:18 PM EST Narrative Resulting Agency Comment Spec In Lab Andi Rene MD HEMATOLOGY ORDERABLE S Performing Organization Address [facility] de Phone Number [facility] * Upper Respiratory Culture Throat (12/31/2011 9:55 PM EST) Upper Respiratory Culture ? Patient Name: ZACK JR., GEOVANNA P ? Ordered By: ANDI RENE ? MR#: [id number] ?LOC: ??[facility] ? /Sex: ??1975 (36 years), ? Male ? PROCEDURE: Upper Respiratory Culture ?SOURCE: Throat ? COLLECTED: 12/31/2011 21:55 ? STARTED: 12/31/2011 22:16 ? FINAL REPORT ? Final Report ? Verified:2011 08:12 ? Beta Hemolytic Streptococci, Group A isolated ? PRELIMINARY REPORT ? Preliminary Report ? Verified:2011 09:46 ? Beta Hemolytic Streptococci, Group A isolated ? [facility] Specimen from throat (specimen) 12/31/2011 9:55 PM EST 12/31/2011 10:16 PM EST Narrative Resulting Agency Comment Spec In Lab Andi Rene MD MICROBIOLOGY - GENER AL ORDERABLES Performing Organization Address [facility] Phone Number [facility] * (ABNORMAL) APTT (12/31/2011 4:34 PM EST) Partial Thromboplastin Time 66(H) 25 - 35 sec [facility] Comment: Recommended therapeutic PTT range for full dose unfractionated heparin is 80-114 seconds. Blood specimen (specimen) 12/31/2011 4:34 PM EST 12/31/2011 4:39 PM EST Narrative Resulting Agency Comment Spec In Lab Andi Rene MD HEMATOLOGY ORDERABLE S Performing Organization Address [facility] Phone Number [facility] * Duplex Study for DVT, Bilat legs (12/31/2011 11:07 AM EST) VB Text Report Department: Vascular Surgery Lab Patient: [id number] (GEOVANNA DIXON) CPT Code: 84326 ICD-9: 780.6 Referring Physician: ANDI RENE Indication: [...] 10:39 AM EST) Smear Review Report ? [facility] ? Provider: ?? ANDI RENE ?Pt. Name: ?? ZACK REYNA, GEOVANNA Llanos ? Acc #: ?[id number] ? Pt. ? Col Date: ?? 12/31/2011 [...] and confirm Dr. Katrin Chakraborty's diagnosis. ARIAN CERDAIUM 12/31/2011 10:3 9 AM EST Andi Rene MD HEMATOLOGY ORDERABLE S [facility] * (ABNORMAL) DIFFERENTIAL, MANUAL (12/31/2011 9:44 AM [...] Narrative Resulting Agency Comment Spec In Lab Andichristina Rene MD HEMATOLOGY ORDERABLE S CERNER [...] ORDERABLE S [facility]ERNER ROBYENNIUM * (ABNORMAL) CBC (WITH DIFF) (12/31/2011 9:44 [...] Platelet 236 145 - 370 x10(3)/mc L [facility] RDW Standard Deviation 42.7 35.0 - 46.0 fL [facility] RDW coefficient of variation 13.1 10.9 - 14.4 % [facility] Mean Platelet Volume 10.4 9.0 - 12.0 fL [facility] Blood specimen (specimen) 12/31/2011 9:44 AM EST 12/31/2011 10:12 AM EST Narrative Resulting Agency Comment Spec In Lab Andi Rene MD HEMATOLOGY ORDERABLE S Performing Organization Address [facility] Co de Phone Number [facility] * Lactate Dehydrogenase (12/31/2011 9:44 AM EST) Lactate Dehydrogenase 123 110 - 220 unit/L [facility] Blood specimen (specimen) 12/31/2011 9:44 AM EST 12/31/2011 10:12 AM EST Narrative Resulting Agency Comment Spec In Lab Andi Rene MD CHEMISTRY ORDERABLES Performing Organization Address [facility] Co de Phone Number [facility] * Peripheral Smear Review (12/31/2011 9:44 AM EST) Peripheral Smear Review See Comment [facility] Comment: When completed by the Pathologist, report [id number] will display under Hematology Reports. Blood specimen (specimen) 12/31/2011 9:44 AM EST 12/31/2011 10:12 AM EST Narrative Resulting Agency Comment Spec In Lab Andi Rene MD HEMATOLOGY ORDERABLE S Performing Organization Address [facility] Co de Phone Number [facility] * (ABNORMAL) APTT (12/31/2011 9:44 AM EST) Partial Thromboplastin Time 50(H) 25 - 35 sec [facility] Comment: Recommended therapeutic PTT range for [...] MD HEMATOLOGY ORDERABLE S Performing Organization Address City/[facility]/ZIP Co de Phone Number [facility] * (ABNORMAL) APTT (12/31/2011 3:38 AM EST) Partial Thromboplastin Time 47(H) 25 - 35 sec [facility]ERNER MILLENNIUM Comment: Recommended therapeutic PTT range for full dose unfractionated heparin is 80-114 seconds. Blood specimen (specimen) 12/31/2011 3:38 AM EST 12/31/2011 3:50 AM EST Narrative Resulting Agency Comment Spec In Lab Andi Rene MD HEMATOLOGY ORDERABLE S Performing Organization Address [facility]/ZIP Co de Phone Number [facility] * (ABNORMAL) BMP w/fasting Glucose (12/31/2011 3:38 AM EST) Glucose Fasting 114(H) 65 - 99 mg/dL [facility] Comment: ?Fasting* Glucose Interpretive Criteria Normal [...] of Diabetes Mellitus, Position Statement from the [place] [employer]. ??Diabetes Care, Volume 33, Supplement [...] In Lab Andi Rene MD CHEMISTRY ORDERABLES [facility] * (ABNORMAL) CBC (with Diff) (12/31/2011 3:38 [...] MD HEMATOLOGY ORDERABLE S Performing Organization Address [facility]/ZIP Co de Phone Number [facility] * (ABNORMAL) APTT (12/30/2011 9:02 PM EST) Pathologist [facility] Partial Thromboplastin Time 37(H) 25 - 35 sec [facility] Comment: Recommended therapeutic PTT range for full dose unfractionated heparin is 80-114 seconds. Blood specimen (specimen) 12/30/2011 9:02 PM EST 12/30/2011 9:10 PM EST Narrative Resulting Agency Comment Spec In Lab Andi Rene MD HEMATOLOGY ORDERABLE S Performing Organization Address City/[facility]/ZIP Co de Phone Number [facility] * EKG 12 Lead (12/30/2011 5:24 PM EST) Ventricular rate 107 BPM MUSE SYSTEM Atrial Rate 107 BPM MUSE SYSTEM P-R Interval 160 ms MUSE SYSTEM QRS Duration 104 ms MUSE SYSTEM Q-T Interval 310 ms MUSE SYSTEM QTC Calculated (Bezet) 413 ms MUSE SYSTEM Calculated P Maddock 24 degrees MUSE SYSTEM Calculated R Maddock 25 degrees MUSE SYSTEM Calculated T Maddock 54 degrees MUSE SYSTEM INTERPRETATION Sinus tachycardia [...] JR ?Ordered By: ANDI RENE ? MR#: [id number] ?LOC: [facility] ? /Sex: ??1975 (36 years), [...] JR ?Ordered By: ANDI RENE ? MR#: [id number] ?LOC: [facility] ? /Sex: ??1975 (36 years), [...] Absolute 0.04 0.00 - 0.05 x10(3)/mc L [facility] MILL[facility]ON[facility] Blood specimen (specimen) 12/30/2011 4:25 PM EST 12/30/2011 4:43 PM EST Andi Rene MD HEMATOLOGY ORDERABLE S Performing Organization Address [facility] Co de Phone Number [facility] * ANTIBODY SCREEN (12/30/2011 4:25 PM EST) Ab Screen Interp Negative [facility] Expires at [id number] on: [id number] [facility] Blood specimen (specimen) 12/30/2011 4:25 PM EST 12/30/2011 4:36 PM EST Narrative Resulting Agency Comment Spec In Lab Andi Rene MD BLOOD BANK LAB ORDER RANDELL Performing Organization Address [facility] Phone Number [facility] * ABO/RH TYPING (12/30/2011 4:25 PM EST) ABORH Type A Pos [facility] Blood specimen (specimen) 12/30/2011 4:25 PM EST 12/30/2011 4:36 PM EST Narrative Resulting Agency Comment Spec In Lab Andi Rene MD BLOOD BANK LAB ORDER RANDELL Performing Organization Address [facility] de Phone Number [facility] * Glucose, random (12/30/2011 4:25 PM EST) Glucose 126 60 - 199 mg/dL [facility] Comment:Diabetes: >=200 mg/d L plus symptoms Blood specimen (specimen) 12/30/2011 4:25 PM EST 12/30/2011 4:43 PM EST Narrative Resulting Agency Comment Spec In Lab Andi Rene MD CHEMISTRY ORDERABLES Performing Organization Address [facility] Co de Phone Number [facility] * (ABNORMAL) CBC (with Diff) (12/30/2011 4:25 [...] MD HEMATOLOGY ORDERABLE S Performing Organization Address [facility] Co de Phone Number [facility] * APTT (12/30/2011 2:08 PM EST) Pathologist [facility] [place] Partial Thromboplastin Time 31 25 - 35 sec [facility]ERNER MILLENNIUM Comment: Recommended therapeutic PTT range for full dose unfractionated heparin is 80-114 seconds. Blood specimen (specimen) 12/30/2011 2:08 PM EST 12/30/2011 2:27 PM EST Narrative Resulting Agency Comment Spec In Lab Andi Rene MD HEMATOLOGY ORDERABLE S Performing Organization Address [facility]/ZIP Co de Phone Number [facility] * Cardiac Enzymes (12/30/2011 2:08 PM EST) Pathologist [facility] [place] Troponin-T 0.03 <=0.03 ng/mL [facility] Comment: 0.03 ng/mL: Represents the 99th [...] consensus document of the Joint Society of Cardiology/[place] [employer] Committee for the redefinition of myocardial infarction. Journal of the [place] [employer] 2000; 36: 959-969] Creatine Kinase 72 0 - 200 unit/L [facility] Blood specimen (specimen) 12/30/2011 2:08 PM EST 12/30/2011 2:27 PM EST Narrative Resulting Agency Comment Spec In Lab Remigio Ceron MD CHEMISTRY ORDERABLES [facility] * HIV (12/30/2011 10:18 AM EST) Pathologist [facility] [place] HIV 1/2 Ab Negative [facility] Blood specimen (specimen) 12/30/2011 10:18 AM EST 12/30/2011 10:28 AM EST Narrative Resulting Agency Comment Spec In Lab Andi Rene MD CHEMISTRY ORDERABLES [facility] * Echo Transthoracic (Complete) (12/30/2011 9:47 AM EST) EF 55 [facility]ART[facility] SYSTEM Anatomical Region Laterality Modality Other 12/30/2011 Narrative 12/30/2011 10:02 AM EST Procedure: ? Transthoracic Echocardiogram Patient: ? ZACK Llanos ?(Age): 1975(36) Med Rec#: ?[id number] ? Sex: ?M ? Site Loc: [facility] ? Ht / Wt: ??180(cm)/124(kg) Pt. Loc: ? Adult Floor ?BSA: ?2.41 Study Date: ?12/30/2011 ? Pt. Type: Inpatient Tape: ? Referring: Remigio Ceron Statement Distribution Clerk: Benjamin Lundberg Diagnosis: ??Chest pain (786.50) CPT Code(s): ??Spectral Doppler (64336), ??Color Doppler (45182), ??Echo Full (65049), Indication(s): ??Chest Pain Rhythm: HR ?BP ?106/60 [...] 12/30/2011 10:01:28 Images reviewed and interpretation verified [facility] Cardiac Ultrasound Laboratory Procedure Note Zak Coley MD - 12/30/2011 Procedure: Transthoracic Echocardiogram Patient: ZACK Llanos DOB(Age): 1975(36) Med Rec#: [id number] Sex: M Site Loc: [facility] Ht / Wt: 180(cm)/124(kg) Pt. Loc: Adult Floor BSA: 2.41 Study Date: 12/30/2011 Pt. Type: Inpatient Tape: Referring: Remigio Ceron Statement Distribution Clerk: Benjamin Lundberg Diagnosis: Chest pain (786.50) CPT Code(s): Spectral Doppler (37920), Color Doppler (40785), Echo Full (92063), Indication(s): Chest Pain Rhythm: HR BP 106/60 [...] 12/30/2011 10:01:28 Images reviewed and interpretation verified [facility] Cardiac Ultrasound Laboratory Remigio [...] Urine Dipstick Clear Clear [facility] MILLENNIUM Specific [place] Urine Automated 1.019 1.002 - 1.030 CERNER [...] MILLENNIUM * Rapid Qual Drug Screen, Urine ([facility]) (12/30/2011 9:32 AM EST) Pathologist [facility] [place] U IVAN Screen See Note CERNER MILLENNIUM [...] testing device is being used in the [facility] Chemistry Laboratory. Please contact the chemistry laboratory at [phone] with questions. Urine specimen (specimen) 12/30/2011 9:32 AM EST 12/30/2011 9:45 AM EST Narrative Resulting Agency Comment Spec In Lab Andi Rene MD URINE ORDERABLES Performing Organization Address City/State/[facility] Phone Number [facility] * Urine culture Clean Catch Urine (12/30/2011 9:31 AM EST) Urine Culture ? Patient Name: GEOVANNA DIXON JR ?Ordered By: ANDI RENE ? MR#: [id number] ?LOC: ??[facility] ? /Sex: ?? 4 (36 [...] [facility] * (ABNORMAL) CBC (with Diff) (12/30/2011 7:07 [...] Deviation 42.2 35.0 - 46.0 fL [facility] RDW coefficient of variation 13.0 10.9 - 14.4 % ARIAN NELSON Mean Platelet Volume 10.6 9.0 - 12.0 fL [facility] NELSON Blood specimen (specimen) 12/30/2011 7:07 AM EST 12/30/2011 7:18 AM EST Narrative Resulting Agency Comment Spec In Lab Remigio Ceron MD HEMATOLOGY ORDERABLE S [facility] * Hemoglobin A1c (12/30/2011 7:07 AM EST) Hemoglobin A1c 6.1 4.3 - 6.1 % [facility] Estimated Average Glucose 128 mg/dL [facility] Comment: eAG equivalents for HbA1c percentages: [...] into estimated average glucose values. ??Diabetes Care 2008:31(8):0596-3447. Blood specimen (specimen) 12/30/2011 7:07 AM EST 12/30/2011 7:18 AM EST Narrative Resulting Agency Comment Spec In Lab Remigio Ceron MD CHEMISTRY ORDERABLES Performing Organization Address [facility] de Phone Number [facility] * (ABNORMAL) APTT (12/30/2011 5:45 AM EST) Partial Thromboplastin Time 45(H) 25 - 35 sec [facility] Comment: Recommended therapeutic PTT range for full dose unfractionated heparin is 80-114 seconds. Blood specimen (specimen) 12/30/2011 5:45 AM EST 12/30/2011 6:10 AM EST Narrative Resulting Agency Comment Spec In Lab Andi Rene MD HEMATOLOGY ORDERABLE S Performing Organization Address [facility] Phone Number [facility] * (ABNORMAL) Glucose, fasting (12/30/2011 5:45 AM EST) Glucose Fasting 108(H) 65 - 99 mg/dL [facility] Comment: ?Fasting* Glucose Interpretive Criteria Normal [...] of Diabetes Mellitus, Position Statement from the [place] [employer]. ??Diabetes Care, Volume 33, Supplement 1, Nov 2009 Blood specimen (specimen) 12/30/2011 5:45 AM EST 12/30/2011 6:10 AM EST Narrative Resulting Agency Comment Spec In Lab Remigio Ceron MD CHEMISTRY ORDERABLES Performing Organization Address [facility] Co de Phone Number [facility] * (ABNORMAL) Triglyceride (12/30/2011 5:45 AM EST) Triglyceride 245(H) <=149 mg/dL [facility] Comment: Reference Range: Normal triglycerides: ??<150 mg/dL Borderline high: ??150-199 mg/dL High: ??200-499 mg/dL Very high: ??>ij=467 mg/dL ELISEO 2001; 285(19):8113-0949 Blood specimen (specimen) 12/30/2011 5:45 AM EST 12/30/2011 6:10 AM EST Narrative Resulting Agency Comment Spec In Lab Remigio Ceron MD CHEMISTRY ORDERABLES Performing Organization Address [facility] Co de Phone Number [facility] * (ABNORMAL) HDL/Cholesterol Profile (12/30/2011 5:45 AM EST) Cholesterol, Total 170 <=199 mg/dL [facility] Comment: Recommendations of the NCEP Adult Treatment Panel for the following risk cutoff thresholds for the [place] population: Desirable: <200 mg/dL Borderline High: 200-239 mg/dL High: > or = 240 mg/dL HDL Cholesterol 36(L) >=40 mg/dL [facility] Comment: Reference range: ??Low HDL: ?? < 40 mg/dL ??Normal: ?40-60 mg/dL ??Desirable: > 60 mg/dL ELISEO 2001; 285(19):7048-6967 Cholesterol/HDL Ratio 4.7 ratio [facility] Comment: A Cholesterol to HDL ratio below 4:1 is desirable. ??Studies suggest that increased CAD risk occurs at ratios above 5 for females and above 6 for men. ? [place] [employer] Association ??(http://www.americanheart.org) ? Jazmine Int Med, 1994; 121:641 ? AM J Med, 1998; 105(1A):48S Blood specimen (specimen) 12/30/2011 5:45 AM EST 12/30/2011 6:10 AM EST Narrative Resulting Agency Comment Spec In Lab Remigio Ceron MD CHEMISTRY ORDERABLES Performing Organization Address [facility] de Phone Number [facility] * (ABNORMAL) LDL Cholesterol, Direct (12/30/2011 5:45 AM EST) LDL Cholesterol, Direct 110(H) <=99 mg/dL [facility] Comment: The National Cholesterol Education Program (NCEP) has set the following guidelines for LDL Cholesterol: Reference range: ?? Optimal: ?<100 mg/dL ?? Near Optimal/Above Optimal: ?? 100-129 mg/dL ?? Borderline high: ?130-159 mg/dL ?? High: ? 160-189 mg/dL ?? Very high: ?>bs=124 mg/dL ELISEO 2001: 285(19):0528-2740 Blood specimen (specimen) 12/30/2011 5:45 AM EST 12/30/2011 6:10 AM EST Narrative Resulting Agency Comment Spec In Lab Remigio Ceron MD CHEMISTRY ORDERABLES Performing Organization Address [facility] de Phone Number [facility] * (ABNORMAL) Cardiac Enzymes (12/30/2011 5:45 AM EST) Troponin-T 0.05(H) <=0.03 ng/mL [facility] Comment: 0.03 ng/mL: Represents the 99th [...] consensus document of the Joint Society of Cardiology/[place] College of Cardiology Committee for the redefinition of myocardial infarction. Journal of the [place] College [employer]iology 2000; 36: 959-969] Creatine [...] Absolute 0.04 0.00 - 0.05 x10(3)/mc L [facility] [employer] Blood specimen (specimen) 12/29/2011 11:29 PM EST 12/29/2011 11:34 PM EST Remigio Ceron MD HEMATOLOGY ORDERABLE S Performing Organization Address [facility] Co de Phone Number [facility] * (ABNORMAL) Cardiac Enzymes (12/29/2011 11:29 PM EST) Troponin-T 0.08(H) <=0.03 ng/mL [facility] Comment: 0.03 ng/mL: Represents the 99th percentile [...] consensus document of the Joint Society of Cardiology/[place] College of Cardiology Committee for the redefinition of myocardial infarction. Journal of the [place] College of [employer]iology 2000; 36: 959-969] Creatine Kinase 86 0 - 200 unit/L [facility] [employer] Blood specimen (specimen) 12/29/2011 11:29 PM EST 12/29/2011 11:34 PM EST Narrative Resulting Agency Comment Spec In Lab Remigio Ceron MD CHEMISTRY ORDERABLES Performing Organization Address [facility] Co de Phone Number [facility]AN NELSON * Prothrombin Time (12/29/2011 11:29 PM EST) Prothrombin Time 13.2 11.9 - 14.7 sec [facility] Comment: [facility] Transfusion Committee Guidelines: INR less than [...] MD HEMATOLOGY ORDERABLE S Performing Organization Address [facility] Phone Number [facility]AN CERDAIUM * Hepatic Function [...] Ceron MD CHEMISTRY ORDERABLES Performing Organization Address [facility] de Phone Number [facility] * pro-Brain Natriuretic Peptide (12/29/2011 11:29 PM EST) NT-proBNP 114 <=125 pg/mL [facility] MILLENNIUM Blood specimen (specimen) 12/29/2011 11:29 PM EST 12/29/2011 11:34 PM EST Narrative Resulting Agency Comment Spec In Lab Remigio Ceron MD CHEMISTRY ORDERABLES Performing Organization Address [facility] Co de Phone Number [facility] CERDAI[facility] * TSH (12/29/2011 11:29 PM EST) Thyroid Stimulating Hormone 0.39 0.27 - 4.20 mcIU/mL [facility] CAENNIUM Blood specimen (specimen) 12/29/2011 11:29 PM EST 12/29/2011 11:34 PM EST Narrative Resulting Agency Comment Spec In Lab Remigio Ceron MD CHEMISTRY ORDERABLES Performing Organization Address [facility] Co de Phone Number [facility] CERDAIUM * Phosphorus (12/29/2011 11:29 PM EST) Phosphorus 3.1 2.5 - 4.5 mg/dL [facility] Blood specimen (specimen) 12/29/2011 11:29 PM EST 12/29/2011 11:34 PM EST Narrative Resulting Agency Comment Spec In Lab Remigio Ceron MD CHEMISTRY ORDERABLES Performing Organization Address [facility] Co de Phone Number [facility] CERDAIUM * Magnesium (12/29/2011 11:29 PM EST) Magnesium 0.83 0.69 - 1.07 mmol/L [facility] Blood specimen (specimen) 12/29/2011 11:29 PM EST 12/29/2011 11:34 PM EST Narrative Resulting Agency Comment Spec In Lab Remigio Ceron MD CHEMISTRY ORDERABLES Performing Organization Address [facility] Co de Phone Number [facility] CER[facility] * (ABNORMAL) Basic Metabolic Panel [...] Ceron MD CHEMISTRY ORDERABLES Performing Organization Address [facility] de Phone Number CERNER MILLENNIUM [...] MD HEMATOLOGY ORDERABLE S Performing Organization Address [facility] de Phone Number [facility] CERDAIUM * APTT (12/29/2011 11:29 PM EST) Partial Thromboplastin Time 34 25 - 35 sec [facility] Comment: Recommended therapeutic PTT range for full dose unfractionated heparin is 80-114 seconds. Blood specimen (specimen) 12/29/2011 11:29 PM EST 12/29/2011 11:34 PM EST Narrative Resulting Agency Comment Spec In Lab Remigio Ceron MD HEMATOLOGY ORDERABLE S Performing Organization Address [facility] Co de Phone Number [facility] NELSON * EKG 12 Lead (12/29/2011 11:13 PM EST) Ventricular rate 108 BPM MUSE SYSTEM Atrial Rate 108 BPM MUSE SYSTEM P-R Interval 150 ms MUSE SYSTEM QRS Duration 106 ms MUSE SYSTEM Q-T Interval 340 ms MUSE SYSTEM QTC Calculated (Bezet) 455 ms MUSE SYSTEM Calculated P Maddock 19 degrees MUSE SYSTEM Calculated R Maddock 31 degrees MUSE SYSTEM Calculated T Maddock 51 degrees MUSE SYSTEM INTERPRETATION Sinus tachycardia Nonspecific T wave abnormality Abnormal ECG No previous ECGs available Confirmed by Madi FORD MD, Saulo ([id number]) on 12/30/2011 2:22:07 PM MUSE SYSTEM 12/29/2011 11:1 3 PM EST 12/30/2011 2:22 PM EST Remigio Ceron MD ECG ORDERABLES Performing Organization Address [facility] Co de Phone Number MUSE SYSTEM documented [...] 0900 (Given - Provider: Sangita Self, DAVID) senna-docusate (PERICOLACE) 8.6-50 mg per tablet 2 [...] Hermila Dumas RN)1115 (Given - Provider: Sangita Self, DAVID) venlafaxine (EFFEXOR) tablet 75 mg (CANCELED) 75 [...] Michelle Chong RN)1623 (Given - Provider: Michelle Chong, DAVID)2000 (Given - Provider: Hermila Dumas RN)2352 (Given - Provider: Hermila Dumas RN) 0100 (Given - Provider: Hermila Dumas RN)0325 (Given - Provider: Hermila Dumas RN)0416 (Given - Provider: Hermila Dumas RN)0526 (Given - Provider: Hermila Dumas RN)0630 (Given - Provider: Hermila Dumas RN)9911 (Given - Provider: Sangita Self, RN)2691 (Given - Provider: Sangita Self RN) Linked [...] Routine documented in this encounter Care Teams Dry Cleaning Manager Relationship Specialty Start Date End Date Patric Al MD PCP - General 12/29/11 02/26/19 documented as of this encounter
--- OUTSIDE RECORDS SUMMARY | 2024-10-20 12:56 | XMS_ITS | Encounter Summary ---
Author Organization [facility] Address [address] [place] [address] Care Team Providers Care Monitor Tech Name Role Phone JorgeAinsleytierra Llanos HEAT TRANSFER TECHNICIAN Primary Care Provider [phone] Encounter Details Date Type Department Care Team (Late st Contact Info) Description 12/03/2022 Lab Requisition [facility] Pathology & Laboratory Medicine - [address] [address] Outr Resulting Lab, Provider Social History Tobacco [...] C Antibody Negative Negative 12/04/2022 8:56 EST [facility] Blood VENOUS BLOOD / Unknown 12/02/2022 11:40 EST 12/03/2022 17:36 EST us Provider Outr Resulting Lab CHEMISTRY & BLOOD GA S ORDERABLES Final Result [facility] [address] [place] [address] documented in this encounter Visit Diagnoses Not on filedocumented in this encounter Care Teams Monitor Tech Relationship Specialty Start Date End Date Cameron Patel, HEAT TRANSFER TECHNICIAN [address] [place] [id number] PCP - General 10/22/09 documented as of this encounter
--- OUTSIDE RECORDS SUMMARY | 2024-10-20 12:56 | XMS_ITS | Encounter Summary ---
Author Organization [facility] Address [address] [place] [id number] Care Team Providers Care Gravel Wheeler Name Role Phone Unavailable Primary Care Provider Unavailabl e Encounter Details Date Type Department Care Team (Late st Contact Info) Description 11/23/2005 14:17 EST Hospital Encounter [address] [address] Jorge Urrutia MD [address] [place] [id number] Social History Tobacco Use Types Packs/Day Years [...]
--- OUTSIDE RECORDS SUMMARY | 2024-10-20 12:56 | XMS_ITS | Encounter Summary ---
Author Organization [facility] Address [address] [place] [address] Care Team Providers Care Change Management Administrator Name Role Phone Unavailable Primary Care Provider Unavailabl e Encounter Details Date Type Department Care Team (Latest Contact Info) Description 03/09/2008 10:00 EDT - 03/09/2008 11:59 EDT Hospital Encounter [facility] - Other [address] [place] [address] Attarian, Wil Llanos MD [address] [phone] Discharge Disposition: Auto Discharge Social [...] ? GEOVANNA ARAYA ? Accession #: ? [id number] ? : ? 1975 (Age: 34) ??M [...] tissue with a ? pinpoint lumen. ??Two c s s representative cross sections are submitted as (A). ? Received in formalin labelled Zack Geovanna and L vas def is a 0.8 cm in ? length by 0.2 cm in diameter firm, white, focally light maynard tubular segment of ?? tissue with a pinpoint lumen. ??Two c s s representative cross sections of the specimen are submitted as (B). (Mary Anne Cheng)/mpl ? End of Report ? 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 Two views of the orbits show no metallic foreign body. 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 Two views of the orbits show no metallic foreign body. us Wil Llanos Attleeanna DE IMG DIAGNOSTIC IMAGING ORDER RANDELL Final Result documented in this encounter Visit Diagnoses Not on filedocumented in this encounter
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
[2024-10-20 13:40] VITALS: BP 127/88; PULSE 99; RESP 18; O2SAT 97
== END 2024-10-20 13:42 | disposition home or self-care (01) ==
PROVIDERS: Emergency Provider Physician Assistant; PCP Student in an Organized Health Care Education/Training Program
DX: T82.7XXA Infection and inflammatory reaction due to other cardiac and vascular devices, implants and grafts, initial encounter (principal)
CPT/HCPCS: 99283; 99284

== ENCOUNTER 2024-10-22 09:53 | Outpatient (REF) | payer OTHER, MEDICAID, SELFPAY ==
[2024-10-22 17:30] LABS: Abs Immature Grans 0.02 10^3/uL (0.0-0.06); Absolute Basophil Count 0.09 10^3/uL (0.0-0.2); Absolute Eosinophil Count 0.35 10^3/uL (0.0-0.7); Absolute Lymphocyte Count 2.39 10^3/uL (1.2-3.4); Absolute Monocyte Count 0.67 10^3/uL (0.1-0.8); Absolute Neutrophil Count 4.22 10^3/uL (1.2-6.7); Basophils % 1.2 %; Eosinophils % 4.5 %; HCT 39.4 % (40.0-50.0); HGB 12.8 g/dL (13.5-17.5); Immature Grans % 0.3 %; Lymphocytes % 30.9 %; MCH 29.3 pg (27.0-33.0); MCHC 32.5 % (32.0-36.0); MCV 90 fL (80-95); MPV 9.9 fL (8.0-11.0); Monocytes % 8.7 %; Neutrophils % 54.4 %; Platelet Count 369 10^3/uL (130-400); RBC 4.37 10^6/uL (4.36-5.78); RDW-SD 46.7 fL; WBC 7.74 10^3/uL (4.4-10.8)
[2024-10-22 17:47] LABS: ALT 24 U/L (16-63); AST 12 U/L (15-37); Albumin 3.1 g/dL (3.4-5.0); Alkaline Phosphatase 123 U/L (46-116); Anion Gap 11.3 mmol/L (3-11); BUN 13 mg/dL (7-18); Bilirubin, Total 0.11 mg/dL (0.2-1.0); CO2 24.7 mmol/L (21.0-32.0); Calcium 9.1 mg/dL (8.5-10.1); Chloride 100 mmol/L (98-107); Creatine Kinase 32 U/L (39-308); Estimated GFR 91.69 (mL/min/1.73m2); Glucose 271 mg/dL (74-106); Potassium 4.4 mmol/L (3.5-5.1); Sodium 136 mmol/L (136-145); Total Protein 7.4 g/dL (6.4-8.2)
== END 2024-10-22 09:54 | disposition home or self-care (01) ==
LOC: LBN 09:53
PROVIDERS: PCP Student in an Organized Health Care Education/Training Program; Visit Provider Internal Medicine Infectious Disease
DX: T82.7XXA Infection and inflammatory reaction due to other cardiac and vascular devices, implants and grafts, initial encounter (principal); L02.416 Cutaneous abscess of left lower limb; Z79.2 Long term (current) use of antibiotics
CPT/HCPCS: 80053; 82550; 85025

== ENCOUNTER 2024-10-31 15:26 | Outpatient (REF) | payer OTHER, MEDICAID, SELFPAY ==
--- OUTSIDE RECORDS SUMMARY | 2024-10-31 15:28 | XMS_ITS | Encounter Summary ---
Author Organization [facility] [place] [address] Care Team Providers Care Manifest Clerk Name Role Phone Charles Romero Primary Care Provider + Encounter Details Date Type Department Care Team (Latest Contact Info) Description 10/23/2024 Travel Social History Tobacco Use Types Packs/Day [...] living in a detention (including now)? No 09/27/2024 IPV Inpatient Questions [...] Care Team (Late st Contact Info) Description 11/09/2024 1:30 PM EST Office [place] [address] Isabela Hayward, [employer] [facility] [address] [place] [address] 11/10/2024 10:00 AM EST Office [place] [address] Dai Whitman APRN 11/21/2024 2:15 PM EST Office [place] [address] Dayanara Grover MD [facility] [address] [place] [address] documented as of this encounter Visit Diagnoses Not on filedocumented in this encounter Care Teams Manifest Clerk Relationship Specialty Start Date End Date Charles Romero PA [facility] [place] [address] PCP - General Internal Medicine 09/18/24 documented as of this encounter
--- OUTSIDE RECORDS SUMMARY | 2024-10-31 15:28 | XMS_ITS | Encounter Summary ---
Author Organization [facility] [place] [address] Care Team Providers Care Varsity Baseball Coach Name Role Phone Charles Romero Primary Care Provider + Encounter Details Date Type Department Care Team (Late st Contact Info) Description 10/31/2024 Telephone [place] [id number] Fallon Lemus, RN Social History Tobacco Use Types Packs/Day Years Used Date Smoking Tobacco: Every Day Cigarettes 1 25 Started: 12/28/1986; Last attempted to quit: 12/28/2011 Smokeless Tobacco: Never Comments:Quit 09/2024 Alcohol Use Standard Drinks/Week Comments No 0 (1 standard drink = 0.6 oz pur e alcohol) [place] Util[employer] Answer Date Recorded In the past 12 months has [employer], gas, oil, or water [employer] threatened to shut off services in your [...] living in a retirement (including now)? No 09/27/2024 DH IPV Inpatient [...] Telephone Encounter - Fallon Lemus RN - 10/31/2024 3:19 PM EST Incoming call from Luis Enrique with [facility] reporting he was with Lux at the time of his call. Luis Enrique reported having concerns regarding Lux wounds including redness around the superior groin wound and the wound near his knee and complaints from Lux about severe burning pain to the superior groin wound. He also reported that there is no drainage from the RAY drain, but it is draining around the site. Luis Enrique attempted to milk the RAY without success. Luis Enrique also reported that Lux's blood pressure was 170/101. Luis Enrique was advised to have Lux go to the local emergency room for evaluation. Luis Enrique verbalized understanding and also reported that he has taken pictures and will sent them for review. Approximately 5 minutes after speaking with Luis Enrique, Lux called to report that when his blood pressure was taken it was right after the VNA nurse sprayed something to help get the wound vac off. That is what caused all the burning pain. I feel great now. Lux was advised that given the redness around the wounds and th RAY draining from the insertion site, it would be best if he was evaluated. Lux verbalized understanding and agreement to plan. Jackeline, suction operator [facility] documented in this encounter Plan of Treatment Upcoming Encounters Date Type Department Care Team (Late st Contact Info) Description 11/09/2024 1:30 PM EST Office [place] [address] Isabela Hayward, CR[employer] MEAT PROCESSOR [facility] INFECTIOUS DISEASE [place] [id number] 11/10/2024 10:00 AM EST Office Visit Vascular Surgery at [place] [phone] Dai Whitman, CR[employer] MEAT PROCESSOR 11/21/2024 2:15 PM EST Office Visit Endocrinology at [place] [phone] Dayanara Grover MD [facility] [place] [address] documented as of this encounter Visit Diagnoses Not on filedocumented in this encounter Care Teams Varsity Baseball Coach Relationship Specialty Start Date End Date Charles Romero PA [address] [place] [address] PCP - General Internal Medicine 09/18/24 documented as of this encounter
--- OUTSIDE RECORDS SUMMARY | 2024-10-31 15:28 | XMS_ITS | Clinical Summary ---
Author Organization [facility] [place] [address] Care Team Providers Care Head End Desizing Machine Operator Name Role Phone Charles Romero [...] - See Instructions). FLUSH PROTOCOL WITH MEDICATIONS ([facility]): Before med infusion: flush with NS [...] - See Instructions). FLUSH PROTOCOL WITH MEDICATIONS ([facility]): Before med infusion: flush with NS [...] diabetes mellitus 15 mL 1 10/10/2024 Active Active Problems Problem Noted Date Diagnosed [...] - Follow up with PCP or Dr Brid in [place] Obesity 08/22/2013 Overview (08/22/2013): Weight is 130.5 Kg on 08/22/13 NSTEMI (non-ST elevated myocardial infarction) 1 Overview (08/21/2013): , NSTEMI, [facility] 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 (SVG to PDA closed 08/27 13) 01/06/2012 Overview (08/22/2013): NSTEMI 12-29-2011 Cath - LAD, PDA and Distal Circ Disease CABG 01-04-2012 (MARTINEZ-LAD, SVG-PDA) Cardiac Cath 08/21/13: [patent MARTINEZ to LAD, occlusion of SVG to RPDA and occlusion of nuiqsut RCA. LVEDP . PCI of mid and distal LCX (Xience) Echocardiogram 08/21/13: LVEF 65% HTN (hypertension) 12/29/2011 Hyperlipidemia 12/29/2011 Depression 12/29/2011 Narcolepsy 12/29/2011 Encounters Date Type Department Care Team Description 10/31/2024 Telephone [place] [address] Fallon Lemus RN 10/23/2024 12:24 PM EST - 10/23/2024 11:59 PM EST Hospital Encounter XRay at [address] [place] [address] Isabela Hayward APRN Vascular graft infection, initial encounter Discharge Disposition: Home 10/23/2024 Travel 10/20/2024 Notes [place] [address] Hayley Torres MD 10/20/2024 External [place] [address] Shannon Tyler LNA MRSA bacteremia 10/20/2024 Telephone [place] [address] Isabela Hayward APRN 10/19/2024 11:50 AM EST Office [place] [address] Isabela Hayward APRN Bacteremia; Vascular graft infection, subsequent encounter; MRSA infection (methicillin-resistan t Staphylococcus aureus); PICC line infiltration, initial encounter; intermodal customer service current use of antibiotics 10/19/2024 11:30 AM EST Clinical Support [place] [address] Vascular graft infection, initial encounter [T82.7XXA] 10/19/2024 10:00 AM EST Office [place] [address] Dai Whitman, TIN STACKER Critical limb ischemia of left lower extremity; Infection of vascular bypass graft, sequela 10/19/2024 Orders Only Infectious Disease at [place] [phone] Isabela Hayward, TIN STACKER Vascular graft infection, initial encounter 10/19/2024 Travel 10/13/2024 [place] [address] Libia Nnuo MA 10/11/2024 Telephone [place] [address] Vangie Kumar RN 10/07/2024 [place] [address] Amaya Hernandez MD 10/04/2024 3:38 PM EST - 10/04/2024 5:32 PM EST [place] [address] Kimberli Dickson MD DEBRIDEMENT SKIN AND SUBCU, LOWER EXTREMITY (WRVU 1.01) 10/04/2024 3:08 PM EST Anesthesia [place] [address] Isabel Longoria MD Chaimberg, Kathleen H, MD 10/04/2024 9:15 AM EST Anesthesia [place] [address] Michelle Crawford CRNA 10/02/2024 1:24 PM EST Anesthesia [place] [address] Kodi Richardson MD 10/02/2024 1:14 PM EST - 10/02/2024 2:48 PM EST Surgery [place] [address] Hermila Mccormick MD DEBRIDEMENT SKIN, SUBCU, MUSCLE, LOWER EXTREMITY (WRVU 2.7) 09/29/2024 11:59 PM EST Anesthesia Event Main Operating Room [place] [address] Penny Mathias MD 09/29/2024 2:11 PM EST - 09/29/2024 3:47 PM EST Surgery Main Operating Room [place] [address] Anabel Finney MD @EXPLORATION W\O SURGICAL REPAIR, FEMORAL ARTERY - JENNIFER (WRVU 7.5) 09/29/2024 2:07 PM EST Anesthesia [place] [address] Penny Mathias MD Maliszewski, Matthew S [facility] 09/28/2024 11:29 AM EST Anesthesia Event Main Operating Room [place] [address] Isabel Longoria MD 09/28/2024 10:25 AM EST - 09/28/2024 12:15 PM EST Surgery Main Operating Room [place] [address] Hayley Torres MD REV. FEM. ANASTOMOSIS OF SYN. BYPASS GRAFT USING NONAUTOGENOUS PATCH ANGIOPLASTY-JENNIFER (WRVU 23.15) 09/27/2024 3:47 PM EST Anesthesia Event Main Operating Room [place] [phone] Joaquina Amor MD Hartmann, Patrick R, MD 09/27/2024 3:10 PM EST - 09/27/2024 5:00 PM EST [place] [address] Hayley Torres MD DEBRIDEMENT SKIN AND SUBCU, LOWER EXTREMITY (WRVU 1.01) 09/26/2024 3:53 PM EST Anesthesia Event Main Operating Room [place] [phone] Marco Santana MD PecSigrid grajeda DO 09/26/2024 3:22 PM EST - 09/26/2024 6:45 PM EST [place] [address] Hayley Torres MD EXCISION OF INFECTED GRAFT FROM LOWER EXTREMITY (WRVU 9.53) 09/26/2024 2:08 PM EST - 10/10/2024 5:11 PM EST Hospital Encounter Surgical Unit Level 4 Wing D at [place] [phone] Kimberli Dickson MD Beach, Jocelyn M, MD Vascular graft infection, initial encounter; PAD (peripheral artery disease); Critical limb ischemia of left lower extremity; MRSA bacteremia; QT prolongation Discharge Disposition: Home with VNA 09/26/2024 1:55 PM EST Ancillary Procedure Radiology Library at [facility] [place] [address] Kimberli Dickson MD 09/26/2024 10:25 AM EST Ancillary Procedure Radiology Library at [facility] [place] [address] Kimberli Dickson MD 09/26/2024 Telephone [place] [address] Kimberli Dickson MD 09/26/2024 Notes Only Vascular Surgery at [place] [phone] Kimberli Dickson MD 09/25/2024 Telephone [place] [address] Fallon Lemus RN 09/21/2024 Telephone [place] [address] Lovely Huitron, RN 09/20/2024 Ancillary Procedure Radiology Library at [facility] [place] [address] Kimberli Dickson MD 09/18/2024 11:20 AM EST Office Visit Cardiology at [place] [phone] Josh Olivarez MD Coronary artery disease, unspecified vessel or lesion type, unspecified whether angina present, unspecified whether nuiqsut or transplanted heart 09/18/2024 Travel 09/06/2024 Notes [place] [address] Fallon Lemus RN 09/06/2024 Telephone [place] [address] Fallon Lemus RN 08/29/2024 Orders Only Vascular Surgery at [place] [phone] Viviana Resendiz APRN Heart failure with mildly reduced ejection fraction (HFmrEF); Cardiomyopathy, unspecified type; Hx of CABG 08/28/2024 2:00 PM EDT Office [place] [address] Kimberli Dickson MD PAD (peripheral artery disease) 08/28/2024 1:00 PM EDT Tech [place] [address] Erick Jama [place] Critical limb ischemia of left lower extremity 08/28/2024 Travel 08/28/2024 [place] [address] Hermila White APRN Critical limb ischemia of left lower extremity 08/28/2024 Orders [place] [address] Vibha Benson APRN Critical limb ischemia of left lower extremity 08/17/2024 3:30 PM EDT Office [place] [address] Viviana Resendiz APRN PAD (peripheral artery disease); Encounter for post surgical wound check; Status post amputation of lesser toe of left foot 08/17/2024 Travel 08/01/2024 7:30 AM EDT - 08/01/2024 1:43 PM EDT Surgery Main Operating Room [place] [phone] Lisette Maldonado MD @BYPASS GRAFT, FEM-ANT TIBIAL, -POST TIBIAL, -PERONEAL, -DP W\ SYNTHETIC CONDUIT (WRVU 23.66) 08/01/2024 7:28 AM EDT Anesthesia Event Main Operating Room [place] [phone] Cornelius Church MD Maliszewski, Matthew S, HOME ECONOMIST 08/01/2024 5:32 AM EDT - 08/03/2024 4:45 PM EDT Hospital Encounter Surgical Unit Level [place] [address] Lisette Maldonaod MD Critical limb ischemia of left lower extremity; PAD (peripheral artery disease); Peripheral artery disease Discharge Disposition: Home with VNA from Last 3 Months Immunizations Name Administration [...] drink = 0.6 oz pur e alcohol) [facility] Utilities Answer Date Recorded In the past [...] time [facility] the [facility] were you homeless or living in [...] PM EST Office [place] [address] Isabela Hyaward, TIN STACKER [facility] [place] [address] 11/10/2024 10:00 AM EST Office [place] [address] Dai Whitman, TIN STACKER 11/21/2024 2:15 PM EST Office [place] [address] Dayanara Grover MD [facility] [place] [address] Health Maintenance Due Date Last Done Comments CT Colonography 1974 Colonoscopy 1974 Colorectal Cancer Screening 1974 FIT DNA 1974 FIT 1974 Sigmoidoscopy (10 year) with FIT yearly 1974 Sigmoidoscopy 1974 DM Opthalmology Exam 1984 Hepatitis C Screening 1992 Hepatitis B vaccine (0-59 yrs) (1) 1993 Pneumococcal Vaccine: At-Ris k 5-64yrs (1 of 2 - PCV) 1993 Tetanus/Diphtheria/Pertussis Vaccines (1 - Tdap) 1993 [...] history exists Medical Devices Implanted Type Area Land Title Examiner Device Identifier Shelf Expiration Date Model / Serial / Lot Cable,Sternal ([id number]) - [id number] Implanted:Qty : 1 on 01/04/2012 at [facility] IMPLANTS N/A: Chest Urvew [employer] - [id number] 09/03/2016 [id number] / [id number] / [id number] Cable,Sternal ,Single ([id number]) - [id number] Implanted:Qty : 1 on 01/04/2012 at [facility] IMPLANTS N/A: Chest Urvew [employer]GICAL [employer]CHN[employer]Y - [id number] 09/03/2016 [id number] / [id number] / [id number] Graft Soft Tissue 0.8x8cm Square Bovine Xenosure ([id number]) (Autoreq) - [id number] Implanted:Qty : 1 on 08/01/2024 by Lisette Maldonado MD at [facility] IMPLANTS Left: Arterial [employer] - LEIMAITRE 01/05/2030 E0.8P8 / 0000 / [id number] Description:left femoral art wei Graft Vascular [id number] Straight Heparin Coated Thin Wall ([id number]) - [id number] Implanted:Qty : 1 on 08/01/2024 by Lisette Maldonado MD at [facility] IMPLANTS Left: Leg [employer] AN [id number] 04/05/2027 [id number] / [id number] / Description:fem-tib (upper l eg to lower leg) vascular bypass graft Graft Bone Filler 20ml Calcium Sulfate Powder Injectable ([id number]) - [id number] Implanted:Qty : 1 on 08/01/2024 by Lisette Maldonado MD at [facility] IMPLANTS Left: Leg [employer] - BIOCOM[employer]I [id number] 01/05/2027 620-020 / / [id number] Description:mixed with 1 g v ancomycin Procedures Procedure Name Priority Date/Time Associated Diagnosis Comments XR PICC PLACEMENT OVER 5 YEARS (IV TEAM) Routine 10/23/2024 1:40 PM EST Vascular graft infection, initial encounter CBC (WITH DIFF) Routine 10/16/2024 MRSA bacteremia [...] 4:28 PM EST Debridement, Skin, Sub-Q Tissue (76274) 10/04/2024 3:10 PM EST Status post explant of infected left CUSTOMER RELATIONS ADVISOR-BK pop bypass graft DEBRIDEMENT SKIN AND SUBCU, [...] Debridement Muscle And Fascia 20 Sq Cm/< (52145) 10/02/2024 1:28 PM EST Infected LLE graft [...] Debridement Muscle And Fascia 20 Sq Cm/< (40529) 09/29/2024 2:06 PM EST explanted LLE infected graft Exploration Not Followed By Surg Lower Extremity Artery (93441) 09/29/2024 2:06 PM EST explanted LLE infected [...] 10 PM EST Excision, Infec Graft, Extremity (52195) 09/28/2024 11:28 AM EST Infected explanted left leg bypass graft Form Skin Pedicle Flap Scalp, Arm, Leg (74352) 09/28/2024 11:28 AM EST Infected explanted left leg bypass graft Unlisted Procedure Vascular Surgery (10906) 09/28/2024 11:28 AM EST Infected explanted left leg bypass graft Revision Femoral Anast Bpg Groin Open W/Nonautog Patch Graft (49023) 09/28/2024 11:28 AM EST Infected explanted left [...] EST I&D Deep Abscess Bursa/Hematoma Thigh/Knee Region (03563) 09/27/2024 3:45 PM EST Infected explanted left leg bypass graft Drain Lower Leg Deep Absc/Hematoma (80557) 09/27/2024 3:45 PM EST Infected explanted left leg bypass graft Excision, Infec Graft, Extremity (62595) 09/27/2024 3:45 PM EST Infected explanted left leg bypass graft Debridement, Skin, Sub-Q Tissue (94980) 09/27/2024 3:45 PM EST Infected explanted left [...] EST I&D Deep Abscess Bursa/Hematoma Thigh/Knee Region (39863) 09/26/2024 3:52 PM EST left infected femoral to below knee bypass graft Drain Lower Leg Deep Absc/Hematoma (22621) 09/26/2024 3:52 PM EST left infected femoral to below knee bypass graft Excision, Infec Graft, Extremity (68225) 09/26/2024 3:52 PM EST left infected femoral to below knee bypass graft BLOOD GAS VENOUS POC Routine 09/26/2024 3:28 PM EST EXCISION OF INFECTED GRAFT FROM LOWER EXTREMITY Routine 09/26/2024 2:46 PM EST ABORH RECHECK (PATIENT HISTORY FOUND) Routine 09/26/2024 2:39 PM EST TYPE AND SCREEN ([facility]/CGP/BABITA) STAT 09/26/2024 2:39 PM EST SCAN, PERIPHERAL [...] 8:04 AM EDT Bypass Graft Othr, Fem-Tibial (73714) 08/01/2024 7:34 AM EDT CLTI POC, GLUCOSE Routine 08/01/2024 6:23 AM EDT BYPASS GRAFT, FEM-ANT TIBIAL, -POST TIBIAL, -PERONEAL, -DP W\ SYNTHETIC CONDUIT Routine 08/01/2024 6:03 AM EDT IMPLANTABLE DEVICES SCAN 08/01/2024 12:00 AM EDT HDL/CHOL PROFILE Routine 07/18/2024 3:33 AM EDT U ALBUMIN/CRE RATIO Timed 01/06/2012 9 :03 PM EST HELEN complete wo contrast (80547) nstemi afib from Last 3 Months or Most Recently Relevant to Health Maintenance Results * XR PICC Placement Over 5 Years with Imaging Guidance (IV Team) (10/23/2024 1:40 PM EST) Only the most recent of3 resultswithin the time period is included. [employer] WORKSTATION ID [id number] RAD Anatomical Region Laterality Modality N/A Radio Fluoroscop y Narrative 10/23/2024 2:38 PM EST EXAMINATION: XR PICC PLACEMENT OVER 5 YEARS WITH IMAGING GUIDANCE (IV TEAM) CLINICAL HISTORY: Confirmation of PICC line placement; IV Antibiotic Therapy T82.7XXA, Infection and inflammatory reaction due to other cardiac and vascular devices, implants and grafts, initial encounter TECHNIQUE: C-arm placement of PICC line. Limited view of the line tip only. COMPARISON: Radiograph 10/09/2024 FINDINGS: Intraprocedural frontal radiograph of the mediastinum demonstrates a right PICC line, with the catheter tip projected at the superior cavoatrial junction. I have personally reviewed the image(s) and the resident's interpretation and agree with the findings, Lizbet Snow MD at 10/23/2024 2:38 PM Thank you for letting us participate in the care of this patient. ??If you are a health care provider and have any questions regarding this report, please contact the number below. ??For patients who have questions please contact the health direct care counselor that requested your imaging first. ? Procedure Note Lizbet Ramirez MD - 10/23/2024 EXAMINATION: XR PICC PLACEMENT OVER 5 YEARS WITH IMAGING GUIDANCE (IVTEAM) CLINICAL HISTORY: Confirmation of PICC line placement; IV AntibioticTherapy T82.7XXA, Infection and inflammatory reaction due to other cardiac andvascular devices, implants and grafts, initial encounter TECHNIQUE: C-arm placement of PICC line. Limited view of the line tiponly. COMPARISON: Radiograph 10/09/2024 FINDINGS: Intraprocedural frontal radiograph of the mediastinumdemonstrates a right PICC line, with the catheter tip projected at the superiorcavoatrial junction. I have personally reviewed the image(s) and the resident's interpretationand agree with the findings, Lizbet Snow MD at 10/23/2024 2:38PM Thank you for letting us participate in the care of this patient. If youare a health care provider and have any questions regarding this report,please contact the number below. For patients who have questions please contactthe health direct care counselor that requested your imaging first. Isabela Hayward TIN STACKER IMG FLUORO ORDER RANDELL * Scan Doc: Lab (10/16/2024 12:00 AM EST) Narrative 10/16/2024 12:00 AM EST Ordered by an unspecified provider. Scanning Provider MEDIA MGR SCAN EXT O RDR/RSLT * (ABNORMAL) CBC (with Diff) (10/16/2024) Only the most recent of18 resultswithin the time period is included. WBC - External 10.99(H) [facility] RBC - External 3.71(L) [facility] Hemoglobin - External 10.8(L) [facility] Hematocrit - External 33.8(L) [facility] MCV - External 91 [facility] MCH - External 29.1 [facility] MCHC - External 32.0 [facility] RDWCV - External 14.2(H) [facility] Platelets - External 512(H) [facility] MPV - External 9.8 [facility] NRBC % - External 0.0 [...] MD HEMATOLOGY ORDERABLE S Performing Organization Address City/[facility] Co de Phone Number [address] [phone] * CK (10/16/2024) Only the most recent of3 resultswithin the time period is included. CK, Total - External 39 [facility] Blood VENOUS BLOOD SPECIMEN / Unknown 10/16/2024 Amaya Hernandez MD CHEMISTRY ORDERABLES Performing Organization Address City/[facility]/ZIP Co de Phone Number [address] [place] [phone] * (ABNORMAL) Comprehensive metabolic panel Non-fasting (10/16/2024) Glucose Lvl - External 124(H) [facility] Blood Urea Nitrogen - External 17 [facility] Creatinine - External 0.9 [facility] EGFR - External 104.05 [facility] Anion Gap - External 11.6(H) [facility] Sodium - External 141 [facility] Potassium - External 4.3 [facility] Chloride - External 103 [facility] CO2 - External 26.4 [facility] Calcium - External 9.0 [facility] [...] Unknown 10/16/2024 Amaya Hernandez MD CHEMISTRY ORDERABLES [address] [place] [phone] * POC, GLUCOSE (10/10/2024 4:27 PM EST) Only the most recent of114 resultswithin the time period is included. Glucometer, POC 172 65 - 199 mg/dL 10/10/2024 4:27 PM EST [facility] Comment:Supplemental ranges: <140 mg/dL before meals <180 mg/dL all other times of the day. Blood CAPILLARY BLOOD / Unknown 10/10/2024 4:27 PM EST 10/10/2024 4:27 PM EST Hayley Torres MD POINT OF CARE TEST O RDERABLES [facility] [place] [address] * Phosphorus (10/10/2024 12:33 AM EST) Only the most recent of13 resultswithin the time period is included. [facility] Phosphorus 3.8 2.5 - 4.5 mg/dL 10/10/2024 1:12 AM [facility] Blood VENOUS BLOOD SPECIMEN / Unknown Venipuncture / Unknown 10/10/2024 12:33 AM EST 10/10/2024 12:43 AM EST Hayley Torres MD CHEMISTRY ORDERABLES Performing Organization Address [facility] de Phone Number [facility] [place] [address] * Magnesium (10/10/2024 12:33 AM EST) Only the most recent of17 resultswithin the time period is included. [facility] Magnesium 0.81 0.69 - 1.07 mMol/L 10/10/2024 1:12 AM [facility] Blood VENOUS BLOOD SPECIMEN / Unknown Venipuncture / Unknown 10/10/2024 12:33 AM EST 10/10/2024 12:43 AM EST Hayley Torres MD CHEMISTRY ORDERABLES Performing Organization Address [facility] de Phone Number [facility] [place] [address] * (ABNORMAL) Basic Metabolic Panel (10/10/2024 12:33 AM EST) Only the most recent of17 resultswithin the time period is included. [facility] Glucose 125 65 - 199 mg/dL 10/10/2024 1:12 AM [facility] Comment:Glucose Concentratio n >=200 mg/dL plus symptoms is consistent with Diabetes Mellitus. Blood Urea Nitrogen 19 10 - 20 mg/dL 10/10/2024 1:12 AM [facility] Creatinine 0.57(L) 0.80 - 1.50 mg/dL 10/10/2024 1:12 AM [facility] Sodium 138 135 - 145 mMol/L 10/10/2024 1:12 AM [facility] Potassium 4.1 3.5 - 5.0 mMol/L 10/10/2024 1:12 AM EST [facility] Chloride 103 98 - 107 mMol/L 10/10/2024 1:12 AM [facility] Carbon Dioxide 25 22 - 31 mMol/L 10/10/2024 1:12 AM [facility] Anion Gap 10 5 - 15 mMol/L 10/10/2024 1:12 AM EST [facility] Calcium 9.4 8.5 - 10.5 mg/dL 10/10/2024 1:12 AM EST [facility] Est Glomerular Filtration Rate - Male 119 mL/min/1. 73 m?? 10/10/2024 1:12 AM EST [facility] Comment: This patient's [...] AM EST Hayley Torres MD CHEMISTRY ORDERABLES [facility] [place] [address] * Place PICC Line: Contact Vascular Access Page [phone] Extremity to exclude: No restrictions; Is PICC [...] to the planned procedure. Hand Hygiene: The steel box toe inserter did perform hand hygiene prior to line insertion. Catheter type: PICC Lot number: [id number] Procedure Technique: Skin was prepped with chlorhexidine. [...] María Carranza APRN PROCEDURE/MINOR SURGICAL ORDERABLES * Vancomycin Level, Random (10/08/2024 5:59 AM EST) Only the most recent of2 resultswithin the time period is included. Vancomycin, Random 6.8 mg/L 2023 7:58 AM EST [facility] Comment:This level is for de termination of the patient's vancomycin pqrr-ivvgr-jsc-curve (AUC) value. Contact the inpatient pharmacy for interpretation. Blood VENOUS BLOOD SPECIMEN / Unknown Venipuncture / Unknown 10/08/2024 5:59 AM EST 10/08/2024 7:29 AM EST Hayley Torres MD CHEMISTRY ORDERABLES [facility] [place] [place] [address] * Scan Doc: Telemetry Strips (10/07/2024 7:23 AM EST) Only the most recent of13 resultswithin the time period is included. Narrative 10/07/2024 7:23 AM EST Ordered by an unspecified provider. Scanning Provider MEDIA MGR SCAN EXT O RDR/RSLT * Place PICC Line: Contact Vascular Access Page [phone] Extremity to exclude: No restrictions; Is PICC [...] to the planned procedure. Hand Hygiene: The steel box toe inserter did perform hand hygiene prior to line insertion. Catheter type: PICC Lot number: [id number] Procedure Technique: Skin was prepped with chlorhexidine. [...] (Bezet) 490 ms MUSE SYSTEM Calculated P Oxford 34 degrees MUSE SYSTEM Calculated R Oxford 11 degrees MUSE SYSTEM Calculated T Oxford 59 degrees MUSE SYSTEM INTERPRETATION Normal sinus rhythm Cannot rule out Inferior infarct , age undetermined Nonspecific T wave abnormality Borderline ECG When compared with ECG of 29-MAY-2024 14:51, Nonspecific T wave abnormality now evident in Lateral leads Confirmed by MD Robert, Deandre Guadarrama ([id number]) on 10/05/2024 3:35:42 PM MUSE SYSTEM 10/04/2024 7:14 PM EST 10/05/2024 3:35 PM EST Hayley Torres MD ECG ORDERABLES MUSE SYSTEM * Vancomycin, trough (10/04/2024 7:53 AM EST) Only the most recent of3 resultswithin the time period is included. Pathologist [facility] Vancomycin, Trough 19.8 10.0 - 20.0 mg/L 10/04/2024 9:16 AM EST [facility] Comment: Varies according to infection source. Blood VENOUS BLOOD SPECIMEN / Unknown Venipuncture / Unknown 10/04/2024 7:53 AM EST 10/04/2024 8:11 AM EST Hayley Torres MD CHEMISTRY ORDERABLES [facility] [place] [place] [address] * (ABNORMAL) Scan, Peripheral Blood (10/01/2024 2:02 AM EST) Only the most recent of2 resultswithin the time period is included. [facility] RBC Morphology Abnormal 10/01/2024 2:55 AM EST [facility] Platelet Estimate Increased(A) Normal 10/01 2:55 AM EST [facility] Polychromasia Present 10/01/2024 2:55 AM EST [facility] [facility] Platelet Clumps Present(A) (none) 2:55 AM EST [facility] Blood VENOUS BLOOD SPECIMEN / Unknown Venipuncture / Unknown 10/01/2024 2:02 AM EST 10/01/2024 2:10 AM EST Hayley Torres MD HEMATOLOGY ORDERABLE S [facility] [place] [address] * Potassium (09/30/2024 6:27 AM EST) Only the most recent of5 resultswithin the time period is included. Pathologist [facility] Potassium 3.9 3.5 - 5.0 mMol/L 09/30/2024 7:10 AM EST [facility] Blood VENOUS BLOOD SPECIMEN / Unknown Venipuncture / Unknown 09/30/2024 6:27 AM EST 09/30/2024 6:35 AM EST Hayley Torres MD CHEMISTRY ORDERABLES Performing Organization Address City/[facility]/ZIP Co de Phone Number [facility] [place] [address] * Blood culture (09/29/2024 9:24 PM EST) Only the most recent of6 resultswithin the time period is included. Blood Culture No growth at 120 hours 10/04/2024 11:01 PM EST [facility] Blood VENOUS BLOOD SPECIMEN / Unknown Venipuncture / Unknown 09/29/2024 9:24 PM EST 09/29/2024 9:34 PM EST Hayley Torres MD MICROBIOLOGY - BLOOD ORDERABLES Performing Organization Address City/[facility] Co de Phone Number [facility] [place] [address] * (ABNORMAL) Hemoglobin A1c (09/28/2024 11:51 PM EST) Hemoglobin A1c 9.7(H) 4.3 - 5.6 % 09/29/2024 9:54 AM EST [facility] Comment: Per ADA guidelines, without [...] cell turnover may not be sales representative electric service of glycemic control. Reference Interval: 4.3 - 5.6% 5.7 - 6.4%: Consistent with prediabetes >=6.5%: Consistent with diagnosis of diabetes mellitus Estimated Average Glucose 232 mg/dL 09/29/2024 9:54 AM EST [facility] Blood VENOUS BLOOD SPECIMEN / Unknown Venipuncture / Unknown 09/28/2024 11:51 PM EST 09/28/2024 11:56 PM EST Hayley Torres MD CHEMISTRY ORDERABLES [facility] [place] [address] * (ABNORMAL) Blood Gas, Arterial POC (09/28/2024 3:16 PM EST) Only the most recent of3 resultswithin the time period is included. pH, Arterial 7.42 7.35 - 7.45 09/28/2024 3:17 PM EST [facility] PCO2, Arterial 39 35 - 45 mmHg 09/28/2024 3:17 PM [facility] PO2, Arterial 103 85 - 104 mmHg 09/28/2024 3:17 PM [facility] Bicarbonate, Arterial 24.8 20.0 - 26.0 mmol/L 09/28/2024 3:17 PM [facility] Base Excess, Arterial 0.2 -3.0 - 3.0 mmol/L 09/28/2024 3:17 PM [facility] Hemoglobin, Arterial 10.9(L) 13.7 - 16.5 g/dL 09/28/2024 3:17 PM [facility] Oxyhemoglobin, Arterial 97.1(H) 94.0 - 97.0 % 09/28/2024 3:17 PM [facility] Carboxyhemoglobin , Arterial 0.1 % 09/28/2024 3:17 PM [facility] Comment: Nonsmokers: 0.5-1.5% COHB ?? Smokers: Variable ??but usually less than 10% ?? Toxic: 20-30% COHB ?? Lethal: Greater than 60% COHB Methemoglobin, Arterial 0.2 <=1.5 % 09/28/2024 3:17 PM [facility] Sodium, Arterial 131(L) 135 - 145 mmol/L 09/28/2024 3:17 PM EST [facility] Potassium, Arterial 3.8 3.5 - 5.0 mmol/L 09/28/2024 3:17 PM EST [facility] Chloride, Arterial 99 98 - 107 mmol/L 09/28/2024 3:17 PM EST [facility] Lactate, Arterial 1.1 0.5 - 2.2 mmol/L 09/28/2024 3:17 PM EST [facility] IONIZED CALCIUM, ARTERIAL 1.08(L) 1.15 - 1.33 mmol/L 09/28/2024 3:17 PM EST [facility] Glucose, Arterial 163 65 - 199 mg/dL 09/28/2024 3:17 PM EST [facility] Comment:Glucose Concentratio n >=200 mg/dL plus symptoms is consistent with Diabetes Mellitus. Blood ARTERIAL BLOOD / Unknown 09/28/2024 3:16 PM EST 09/28/2024 3:17 PM EST Hayley Torres MD POINT OF CARE TEST O RDERABLES Performing Organization Address City/State/[facility] Co de Phone Number [facility] [place] [address] * Surgical Pathology (09/28/2024 2:10 PM EST) Case Report Surgical Pathology Report ? Case: [id number] ? Authorizing Provider: ??Hayley Torres MD ? Collected: ? 09/28/2024 1410 ? Ordering Location: ? Main Operating Room [facility] ?? Received: ?09/28/2024 1644 ? [facility] ? Hospital ? Pathologist: ? Aziza Packer MD ? Specimens: ?? A) - Leg, Left, Left femoral proximal graft ? B) - Leg, Left, Left distal BK pop graft ? 10/02/2024 8:17 AM [facility] Final Diagnosis A. Graft, left leg, femoral proximal, excision: - Gross surgical pathology examination. B. Graft, left leg, distal BK pop, excision: - Gross surgical pathology examination. 10/02/2024 8:17 AM [facility] Clinical Information A. Leg, Left, Left femoral proximal graft Left femoral proximal graft B. Leg, Left, Left distal BK pop graft Left distal BK pop graft 10/02/2024 8:17 AM [facility] Gross Description A. Leg, Left, [...] diagnosis only sns 10/02/2024 8:17 AM EST [facility] Result Note Routine 10/02/2024 8:17 AM EST [facility] Planning Engineer STRUCTURE OF LEFT LOWER LIMB / Unknown 09/28/2024 2:10 PM EST 09/28/2024 4:44 PM EST Comment:Left femoral proxima l graft Biomedical device (physical object) STRUCTURE OF LEFT LOWER LIMB / Unknown 09/28/2024 2:17 PM EST 09/28/2024 4:44 PM EST Comment:Left distal BK pop g raft Hayley Torres MD PATHOLOGY/CYTOLOGY O RDERABLES [facility] [place] [place] [address] * ELEN, legs, multiple levels (09/28/2024 7:44 AM EST) VB Text Report Department: Vascular Surgery Lab Patient: [id number] (GEOVANNA DIXON) CPT: 94606 Referring Physician: HERMILA SNIDER ?? Phone: Indications: [...] EST Narrative 09/28/2024 9:15 AM EST [address] [place] [address] ? Echocardiogram Report Name: GEOVANNA DIXON JR ?Study Date: 09/28/2024 06:56 AMBP: 132/75 mmHg ? Patient Location: ^IC08^A : 1975 ? Height: 179 cm ? Account: [id number] Age: 49 yrs ? Weight: 108 kg Gender: Male ?BSA: 2.3 m2 Ordering Physician: Kimberli Dickson MD Referring Physician: PATRIC GILES Performed By: Faiza Cole Reason For Study: Vascular graft infection, initial encounter; MRSA bacteremia Interpreting Fellow: Jame Lares. Exam Location: [facility]. Interpretation Summary -Limited study performed for [...] 05/29/2024, no significant changes. Procedure Limited - 13871. Doppler - 29565. Color Doppler - 44648. Suboptimal quality. This study is limited because [...] Note David Lomeli MD - 09/28/2024 [address] [place] [address] Echocardiogram Report Name: GEOVANNA DIXON JR Study Date: 406:56 AMBP: 132/75 mmHg Patient Location:^IC08^A : 1975 Height: 179 cm Account: [id number] Age: 49 yrs Weight: 108 kg Gender: Male BSA: 2.3 m2 Ordering Physician: Kimberli Dickson MD Referring Physician: PATRIC GILES Performed By: Faiza Cole Reason For Study: Vascular graft infection, initial encounter; MRSAbacteremia Interpreting Fellow: Jame Lares. Exam Location: [facility]. Interpretation Summary -Limited study performed for [...] 05/29/2024, no significant changes. Procedure Limited - 92021. Doppler - 27614. Color Doppler - 84307. Suboptimalquality. This study is limited because of [...] - 9.50 x10(3)/mc L 09/27/2024 6:16 PM [facility] Red Blood Cell 3.76(L) 4.58 - 5.54 x10(6)/mc L 09/27/2024 6:16 PM [facility] Hemoglobin 11.0(L) 13.7 - 16.5 g/dL 09/27/2024 6:16 PM [facility] Hematocrit 31.6(L) 40.5 - 48.5 % 09/27/2024 6:16 PM [facility] Mean Cell Volume 84.0 82.9 - 93.1 fL 09/27/2024 6:16 PM [facility] Mean Cell Hemoglobin 29.3 27.5 - 32.1 pg 09/27/2024 6:16 PM [facility] Mean Cell Hemoglobin Concentration 34.8 32.0 - 35.7 g/dL 09/27/2024 6:16 PM [facility] Platelet 322 145 - 357 x10(3)/mc L 09/27/2024 6:16 PM [facility] Mean Platelet Volume 9.4 7.6 - 12.9 fL 09/27/2024 6:16 PM [facility] RDW Standard Deviation 39.4 36.0 - 45.0 fL 09/27/2024 6:16 PM EST [facility] RDW coefficient of variation 13.0 11.4 - 13.8 % 09/27/2024 6:16 PM EST [facility] NRBC% auto 0.0 % 09/27/2024 6:16 PM EST [facility] NRBC Absolute <0.01 <0.01 x10(3)/mc L 09/27/2024 6:16 PM EST [facility] Blood VENOUS BLOOD SPECIMEN / Unknown Venipuncture / Unknown 09/27/2024 5:55 PM EST 09/27/2024 6:05 PM EST Kimberli Dickson MD HEMATOLOGY ORDERABLE S Performing Organization Address [facility]/ZIP Co de Phone Number [facility] [place] [address] * Anaerobic Culture (09/27/2024 4:54 PM EST) Only the most recent of3 resultswithin the time period is included. Anaerobic Culture No anaerobic organisms isolated 10/01/2024 3:54 PM EST [facility] Tissue STRUCTURE OF LEFT THIGH / Unknown 09/27/2024 4:54 PM EST Comment:Infected explanted l eft leg bypass graft Hayley Torres MD MICROBIOLOGY - GENER AL ORDERABLES Performing Organization Address City/[facility]/ZIP Co de Phone Number [facility] [place] [address] * (ABNORMAL) Tissue Culture, Aerobic Only (09/27/2024 4:54 PM EST) Tissue Culture Rare Methicillin Resistant Staphylococcus aureus(A) VITEK 2 METHOD 10/01/2024 1:18 PM EST [facility] Gram Stain Few Neutrophils seen 10/01/2024 1:18 PM EST [facility] Gram Stain No microorganisms seen 10/01/2024 1:18 PM EST [facility] Tissue STRUCTURE OF LEFT THIGH [...] - GENER AL ORDERABLES Performing Organization Address City/[facility] Co de Phone Number [facility] [place] [address] * Fungus culture (09/27/2024 4:54 PM EST) Only the most recent of3 resultswithin the time period is included. Fungus Culture No fungus isolated 10/31/2024 7:55 AM EST [facility] Tissue STRUCTURE OF LEFT THIGH / Unknown 09/27/2024 4:54 PM EST 09/27/2024 5:23 PM EST Comment:Infected explanted l eft leg bypass graft Hayley Torres MD MICROBIOLOGY - GENER AL ORDERABLES Performing Organization Address City/[facility] Co de Phone Number [facility] [place] [address] * CT Lower Extremity w Contrast Left (09/27/2024 9:16 AM EST) [facility] Signature WORKSTATION ID [id number] [facility] Anatomical Region Laterality Modality Hip, Leg, Knee, [...] who have questions please contact the health direct care counselor that requested your imaging first. ? Narrative [...] wedged between the vastus medialis and adductor Blanchard muscle. This tracks into the popliteal fossa [...] is wedgedbetween the vastus medialis and adductor Blanchard muscle. This tracks into thepopliteal fossa and [...] patients who have questions please contactthe health direct care counselor that requested your imaging first. Rose Wright APRN IM CT ORDERABL ES * (ABNORMAL) MRSA PCR Screen (09/27/2024 7:51 AM EST) Pathologist [facility] MRSA PCR Detected(A ) 09/27/2024 11:56 AM EST [facility] Swab BOTH ANTERIOR NARES / Unknown Non Blood Collection / Unknown 09/27/2024 7:51 AM EST 09/27/2024 8:05 AM EST Narrative [facility] - 09/27/2024 11:56 AM EST This test was performed using the Xpert MRSA NxG test kit and is run on the [employer] retargeting GeneXpert Dx System. This test is cleared by the U.S. Food and Drug Administration for clinical use and its performance characteristics have been verified by the [facility] at [facility]. Kimberli Dickson MD MOLECULAR ORDERABLES [facility] [place] [address] * (ABNORMAL) Sonicated Tissue/Implant Culture (09/26/2024 5:16 PM EST) Pathologist [facility] Sonicated Tissue/Implan t Culture Methicillin Resistant Staphylococcus aureus(A) VITEK 2 METHOD 09/30/2024 1:49 PM EST [facility] Comment: isolated from broth culture. Susceptibilities previously reported. Vascular Graft STRUCTURE OF LEFT LOWER LIMB / Unknown Non Blood Collection / Unknown 09/26/2024 5:16 PM EST 09/26/2024 5:45 PM EST Kimberli Dickson MD MICROBIOLOGY - [facility] AL ORDERABLES [facility] [place] [address] * (ABNORMAL) Abscess/Wound Aspirate Culture, Aerobic Only (09/26/2024 5:02 PM EST) Only the most recent of2 resultswithin the time period is included. Abscess/Wound Aspirate Culture Many Methicillin Resistant Staphylococcus aureus(A) VITEK 2 METHOD 09/30/2024 1:37 PM EST [facility] Gram Stain Many neutrophils(A) 09/30/2024 1:37 PM EST [facility] Gram Stain Many Gram positive cocci(A) 09/30/2024 1:37 PM EST [facility] Abscess STRUCTURE OF LEFT KNEE [...] Torres MD MICROBIOLOGY - GENER AL ORDERABLES [facility] [place] [address] * (ABNORMAL) Blood Gas, Venous POC (09/26/2024 3:28 PM EST) pH, Venous 7.43(H) 7.32 - 7.42 09/26/2024 3:30 PM EST [facility] PCO2, Venous 41 38 - 58 mmHg 09/26/2024 3:30 PM EST [facility] PO2, Venous 18 16 - 65 mmHg 09/26/2024 3:30 PM EST [facility] Bicarbonate, Venous 26.6 22 - 31 mmol/L 09/26/2024 3:30 PM [facility] Base Excess, Venous 2.3 1.9 - 4.5 mmol/L 09/26/2024 3:30 PM EST [facility] Hemoglobin, Venous 12.4(L) 13.7 - 16.5 g/dL 09/26/2024 3:30 PM [facility] Oxyhemoglobin, Venous 26.8 % 09/26/2024 3:30 PM [facility] Carboxyhemoglobin , Venous 1.0 % 09/26/2024 3:30 PM [facility] Comment: Nonsmokers: 0.5-1.5% COHB ?? Smokers: Variable ??but usually less than 10% ?? Toxic: 20-30% COHB ?? Lethal: Greater than 60% COHB Methemoglobin, Venous 0.4 <=1.5 % 09/26/2024 3:30 PM EST [facility] Sodium, Venous 127(L) 135 - 145 mmol/L 09/26/2024 3:30 PM EST [facility] Potassium, Venous 3.3(L) 3.5 - 5.0 mmol/L 09/26/2024 3:30 PM EST [facility] Chloride, Venous 91(L) 98 - 107 mmol/L 09/26/2024 3:30 PM EST [facility] Glucose, Venous 259(H) 65 - 199 mg/dL 09/26/2024 3:30 PM EST [facility] Comment:Glucose Concentratio n >=200 mg/dL plus symptoms is consistent with Diabetes Mellitus. Lactate, Venous 2.2 0.5 - 2.2 mmol/L 09/26/2024 3:30 PM EST [facility] Ionized Calcium, Venous 1.09(L) 1.15 - 1.33 mmol/L 09/26/2024 3:30 PM EST [facility] Blood VENOUS BLOOD SPECIMEN / Unknown 09/26/2024 3:28 PM EST 09/26/2024 3:30 PM EST Kimberli Dickson MD POINT OF CARE TEST O RDERABLES Performing Organization Address City/[facility]/ZIP Co de Phone Number [facility] [place] [address] * ABORH RECHECK (PATIENT HISTORY FOUND) (09/26/2024 2:39 PM EST) Pathologist [facility] ABORH Recheck Progress Complete 09/26/2024 5:01 PM EST [facility] Blood VENOUS BLOOD SPECIMEN / Unknown Venipuncture / Unknown 09/26/2024 2:39 PM EST 09/26/2024 2:56 PM EST Kimberli Dickson MD BLOOD BANK LAB ORDER RANDELL Performing Organization Address City/[facility]/ZIP Co de Phone Number [facility] [place] [address] * APTT (09/26/2024 2:39 PM EST) Partial Thromboplastin Time 36 25 - 37 sec 09/26/2024 3:09 PM EST [facility] Comment: The PTT is NOT appropriate for heparin monitoring. Use the Anti-Xa level for heparin monitoring (HEP UFH) or LMWH monitoring (HEP LMW). A PTT less than 37 seconds generally indicates adequate hemostasis. Blood VENOUS BLOOD SPECIMEN / Unknown Venipuncture / Unknown 09/26/2024 2:39 PM EST 09/26/2024 2:50 PM EST Kimberli Dickson MD HEMATOLOGY ORDERABLE S Performing Organization Address City/[facility] Co de Phone Number [facility] [place] [address] * (ABNORMAL) Prothrombin Time (09/26/2024 2:39 PM EST) Prothrombin Time 21.6(H) 9.4 - 12.5 sec 09/26/2024 3:09 PM EST [facility] International Normalization Ratio 1.9 <=4.9 09/26/2024 3:09 PM EST [facility] Comment: An INR < 2.0 [...] MD HEMATOLOGY ORDERABLE S Performing Organization Address [facility] Co de Phone Number [facility] [place] [address] * (ABNORMAL) Fibrinogen (09/26/2024 2:39 PM EST) Fibrinogen >1,000(H) 200 - 393 mg/dL 09/26/2024 3:09 PM EST [facility] Comment: A fibrinogen level >100 mg/dL is adequate for hemostasis in most patients without underlying bleeding disorders. Blood VENOUS BLOOD SPECIMEN / Unknown Venipuncture / Unknown 09/26/2024 2:39 PM EST 09/26/2024 2:50 PM EST Kimberli Dickson MD HEMATOLOGY ORDERABLE S [facility] [place] [address] * Type and screen ([facility]/JACKELYN/BABITA) (09/26/2024 2:39 PM EST) Pathologist [facility] ABORH Type A POSITIVE 09/26/2024 3:45 PM EST [facility] PATIENT HISTORY Found 09/26/2024 3:45 PM EST [facility] Expires at [id number] on: 09/29/2024 09/26/2024 3:45 PM EST [facility] ANTIBODY SCREEN AUTOMATED Negative 09/26/2024 3:45 PM EST [facility] T&S only valid at [facility] 09/26/2024 3:45 PM EST [facility] Blood VENOUS BLOOD SPECIMEN / Unknown Venipuncture / Unknown 09/26/2024 2:39 PM EST 09/26/2024 2:56 PM EST Narrative [facility] - 09/26/2024 3:45 PM EST This Type and Screen result is only valid at the [facility] Kimberli Dickson MD BLOOD BANK LAB ORDER RANDELL [facility] [place] [address] * (ABNORMAL) Hepatic Function Panel (09/26/2024 2:39 PM EST) Pathologist [facility] Albumin 3.1(L) 3.2 - 5.2 g/dL 09/26/2024 4:23 PM EST [facility] Aspartate Aminotransferase 16 <=39 unit/L 09/26/2024 4:23 PM EST [facility] Alanine Aminotransferase 14 0 - 55 unit/L 09/26/2024 4:23 PM EST [facility] Alkaline Phosphatase 160(H) 40 - 130 unit/L 09/26/2024 4:23 PM EST [facility] Bilirubin, Total 0.4 <=1.3 mg/dL 09/26/2024 4:23 PM EST [facility] Bilirubin, Direct 0.2 0.0 - 0.3 mg/dL 09/26/2024 4:23 PM EST [facility] Protein, Total 7.0 6.1 - 8.0 g/dL 09/26/2024 4:23 PM EST [facility] Blood VENOUS BLOOD SPECIMEN / Unknown Venipuncture / Unknown 09/26/2024 2:39 PM EST 09/26/2024 2:50 PM EST Kimberli Dickson MD CHEMISTRY ORDERABLES [facility] [place] [address] * Request For 2nd Read CT Lower Extremity (09/26/2024 1:50 PM EST) [employer] WORKSTATION ID [id number] [facility] Anatomical Region Laterality Modality Hip, [...] who have questions please contact the health direct care counselor that requested your imaging first. ? Narrative 09/26/2024 3:01 PM EST EXAMINATION: REQUEST FOR 2ND READ CT LOWER EXTREMITY CLINICAL HISTORY: Pt s/p LLE femoral-below knee popliteal bypass with PTFE graft, c/f infection surrounding graft, en route to [facility] for possible vascular surgery intervention; Sending Institution [facility]; Date of exam [id number]; [...] on series 3, image 8 and 641, 312, 472, 502. No other rim-enhancing fluid collection is [...] c/f infection surrounding graft, en route to [facility] for possiblevascular surgery intervention; Sending Institution [facility]; Date of exam [id number]; [...] on series 3, image 8 and 641, 002,64, 432. No other rim-enhancing fluid collection is seen. [...] patients who have questions please contactthe health direct care counselor that requested your imaging first. Kimberli Dickson MD [facility] OUTSIDE INTERPRE TATION ORDERABLES * Film Library- Storage Only CT Lower Extremity (09/26/2024 10:21 AM EST) Only the most recent of2 resultswithin the time period is included. Narrative [facility] - 09/26/2024 10:21 AM EST This exam is auto-finalizing. It's purpose is for storage only. Kimberli SMITH FILM LIBRARY ORD ERABLES [place], [place] * Unilat Bypass Graft Assess (08/28/2024 12:55 PM EDT) VB Text Report Department: Vascular Surgery Lab Patient: [id number] (GEOVANNA DIXON) CPT: 18681 Referring Physician: HERMILA SNIDER ?? Phone: Indications: [...] lab database for comparison. Electronically Signed by: KIMEBRLI DICKSON on 2024-08-28 02:36:03 PM [facility] VB [...] HDL Cholesterol 38 mg/dL 4:50 AM EDT [facility] Comment:Males: High Risk: [...] ACC/AHA Guidelines (most recently Johann et al. [facility] 08/11/22): * For individuals with [...] Garcia MD CHEMISTRY ORDERABLES Performing Organization Address City/State/[facility] Co de Phone Number [facility] [place] [address] * Microalbumin, urine, random (01/06/2012 9:03 PM EST) Creatinine, Urine 136 mg/dL CE RNER MILLENNIUM Albumin, Urine 14.4 mg/L CERNE R MILLENNIUM Albumin / Creatinin Ratio, Urine 11 mcg/mg Cr CERNER MILLENNIUM Comment: Reference Range* Random collection (mcg/mg creatinine) Normal ?<30 Microalbuminuria ?? 30 - 300 Clinical Albuminuria ?? >300 *[place] [employer]. Diabetic Nephropathy. Diabetes Care 1997;(Suppl 1):S24-S27 Exercise within 24 hour, infection, fever, CHF, marked hyperglycemia, and marked hypertension may elevate urinary albumin excretion over baseline values. Urine specimen (specimen) 01/06/2012 9:03 PM EST 01/06/2012 10:28 PM EST Narrative Resulting Agency Comment Spec In Lab Alfonso Morales MD URINE ORDERABLES Performing Organization Address [facility] Co de Phone Number CERNER MILLENNIUM from Last 3 Months or Most Recently Relevant to Health Maintenance Advance Directives Documents on File Type Date Recorded Patient Exercise Manager Expl anation Personal Exercise Manager 09/20/2024 2:23 PM cony rios * Attempt Cardiopulmonary Resuscitation - Inpatient (Latest [...] of discussion: CPR, intubation OK Care Teams Head End Desizing Machine Operator Relationship Specialty Start Date End Date Charles Romero PA [facility] [place] [address] PCP - General Internal Medicine 09/18/24
--- OUTSIDE RECORDS SUMMARY | 2024-10-31 15:29 | XMS_ITS | Encounter Summary ---
Author Organization [place] [address] Care Team Providers Care Observer Electrical Prospecting Name Role Phone Charles Romero Primary Care Provider + Encounter Details Date Type Department Care Team (Latest Contact Info) Description 10/19/2024 11:30 AM EST Clinical Support [place] [phone] Vascular graft infection, initial encounter [T82.7XXA] Social History Tobacco Use Types Packs/Day Years Used Date Smoking Tobacco: Every Day Cigarettes 1 25 Started: 12/28/1986; Last attempted to quit: 12/28/2011 Smokeless Tobacco: Never Comments:Quit 09/2024 Alcohol Use Standard Drinks/Week Comments No 0 (1 standard drink = 0.6 oz pur e alcohol) [facility] Utilities Answer Date Recorded In the past 12 months has e [employer], gas, oil, or water [employer] threatened to shut off services in your [...] PM EST Office [place] [phone] Isabela Hayward, SAFETY INSTRUCTOR [facility] [place] [address] 11/10/2024 10:00 AM EST Office [place] [phone] Dai Whitman APRN 11/21/2024 2:15 PM EST Office [place] [phone] Dayanara Grover MD [facility] [place] [address] documented as of this encounter Visit Diagnoses Diagnosis Vascular graft infection, initial encounter [T82.7XXA] documented in this encounter Care Teams Observer Electrical Prospecting Relationship Specialty Start Date End Date Charles Romero PA [facility] [place] [address] PCP - General Internal Medicine 09/18/24 documented as of this encounter
--- OUTSIDE RECORDS SUMMARY | 2024-10-31 15:29 | XMS_ITS | Encounter Summary ---
Author Organization [facility]ly [facility] Address [facility] [place] [address] Care Team Providers Care Laundry Attendant Name Role Phone Charles Romero Primary Care Provider + Encounter Details Date Type Department Care Team (Late st Contact Info) Description 10/20/2024 Telephone [place] [address] Isabela Hayward APRN [facility] [place] [address] Social History Tobacco Use Types Packs/Day Years Used Date Smoking Tobacco: Every Day Cigarettes 1 25 Started: 12/28/1986; Last attempted to quit: 12/28/2011 Smokeless Tobacco: Never Comments:Quit 09/2024 Alcohol Use Standard Drinks/Week Comments No 0 (1 standard drink = 0.6 oz pur e alcohol) [facility] Utilities Answer Date Recorded In the past [...] any time in the past 12 m [facility], were you homeless or living in a mcfp (including now)? No 09/27/2024 IPV Inpatient Questions [...] takes 2 hours just to get to [facility]. Caller Name (If other than patient): Cony Patient Callback number: [phone]. Best time you are available: Any Route Per Clinic Coverage Page documented in this encounter Plan of Treatment Upcoming Encounters Date Type Department Care Team (Late st Contact Info) Description 11/09/2024 1:30 PM EST Office Visit [place] [phone] Isabela Hayward, SUPPORT ARCHITECT [facility] [place] [address] 11/10/2024 10:00 AM EST Office Visit Vascular Surgery at [place] [phone] Dai Whitman APRN 11/21/2024 2:15 PM EST Office Visit Endocrinology at [place] [phone] Dayanara Grover MD [facility] [place] [address] documented as of this encounter Visit Diagnoses Not on filedocumented in this encounter Care Teams Laundry Attendant Relationship Specialty Start Date End Date Charles Romero [place] [address] PCP - General Internal Medicine 09/18/24 documented as of this encounter
--- OUTSIDE RECORDS SUMMARY | 2024-10-31 15:29 | XMS_ITS | Encounter Summary ---
Author Organization [facility] Address [facility] [place] [address] Care Team Providers Care International Organizer Name Role Phone Charles Romero Primary Care Provider + Encounter Details Date Type Department Care Team (Late st Contact Info) Description 10/19/2024 Orders [place] [address] Isabela Hayward APRN [facility] [place] [address] Vascular graft infection, initial encounter Social History Tobacco Use Types Packs/Day Years Used Date Smoking Tobacco: Every Day Cigarettes 1 25 Started: 12/28/1986; Last attempted to quit: 12/28/2011 Smokeless Tobacco: Never Comments:Quit 09/2024 Alcohol Use Standard Drinks/Week Comments No 0 (1 standard drink = 0.6 oz pur e alcohol) [facility] Utilities Answer Date Recorded In the past 12 months has [employer], gas, oil, or water company threatened [...] any time in the past 12 m [facility], were you homeless or living in a retirement (including now)? No 09/27/2024 IPV Inpatient Questions [...] PM EST Office [place] [phone] Isabela Hayward, RESHMA [facility] DR [place] [address] 11/10/2024 10:00 AM EST Office [place] [address] Dai Whitman APRN 11/21/2024 2:15 PM EST Office [place] [phone] Dayanara Grover MD [facility] ENDOCRINOLOGY DEPT [place] [phone] Scheduled Orders Name Type Priority Associated Diagnoses Orde r Schedule Place PICC Line: Contact Vascular Access Page [phone] Procedures Routine Vascular graft infection, initial encounter Expected: 10/23/2024, Expires: 11/19/2024 documented as of this encounter Results * XR PICC Placement Over 5 Years with Imaging Guidance (IV Team) (10/23/2024 1:40 PM EST) [employer] Signature WORKSTATION ID [id number] [facility] [place][NOTE 2] Anatomical Region Laterality Modality N/A Radio Fluoroscop [...] who have questions please contact the health youth career specialist that requested your imaging first. ? [...] patients who have questions please contactthe health youth career specialist that requested your imaging first. Isabela Hayward APRN IMG FLUORO ORDER RANDELL documented in this encounter Visit Diagnoses Diagnosis Vascular graft infection, initial encounter Vascular graft infection, initial encounter documented in this encounter Care Teams International Organizer Relationship Specialty Start Date End Date Charles Romero PA [facility] [place] [address] PCP - General Internal Medicine 09/18/24 documented as of this encounter
--- OUTSIDE RECORDS SUMMARY | 2024-10-31 15:29 | XMS_ITS | Encounter Summary ---
Author Organization [facility] Address [facility] [place] [address] Care Team Providers Care Science Consultant Name Role Phone Charles Romero Primary Care Provider + Encounter Details Date Type Department Care Team (Late st Contact Info) Description 10/19/2024 11:50 AM EST Office [place] [address] Isabela Hayward APRN [facility] [place] [address] Bacteremia; Vascular graft infection, subsequent encounter; MRSA infection (methicillin-resistant Staphylococcus aureus); PICC line infiltration, initial encounter; 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 Use as instructed Indications: [id number] each 1 FreeStyle Lancets 28 gauge Misc [...] review of medical records prior to thevisit, [id number] evaluation and counseling, clinical decision making, coordination of care and documentation. Isabela Hayward APRN, Infectious Disease 10/19/2024 11:45 AM documented in this encounter Plan of Treatment Upcoming Encounters Date Type Department Care Team (Late st Contact Info) Description 11/09/2024 1:30 PM EST Office [place] [address] Isabela Hayward APRN [facility] [place] [address] 11/10/2024 10:00 AM EST Office [place] [address] Dai Whitman APRN 11/21/2024 2:15 PM EST Office [place] [address] Dayanara Grover MD [facility] [place] [address] documented as of this encounter Visit Diagnoses Diagnosis Bacteremia Vascular graft infection, subsequent encounter MRSA infection (methicillin-resistant Staphylococcus aureus) Methicillin resistant Staphylococcus aureus in conditions classified elsewhere and of unspecified site PICC line infiltration, initial encounter [facility] current use of antibiotics Encounter for long-term (current) use of antibiotics documented in this encounter Care Teams Science Consultant Relationship Specialty Start Date End Date Charles Romero [place] [place] [address] PCP - General Internal Medicine 09/18/24 documented as of this encounter
--- OUTSIDE RECORDS SUMMARY | 2024-10-31 15:29 | XMS_ITS | Encounter Summary ---
Author Organization [facility] Address [facility] [place] [address] Care Team Providers Care Critical Care Transport Nurse Name Role Phone Charles Romero Primary Care Provider + Encounter Details Date Type Department Care Team (Late st Contact Info) Description 10/20/2024 External Results [place] [phone] Shannon Tyler, STONE DRESSER MRSA bacteremia Social History Tobacco Use Types Packs/Day Years Used Date Smoking Tobacco: Every Day Cigarettes 1 25 Started: 12/28/1986; Last attempted to quit: 12/28/2011 Smokeless Tobacco: Never Comments:Quit 09/2024 Alcohol Use Standard Drinks/Week Comments No 0 (1 standard drink = 0.6 oz pur e alcohol) [facility] Utilities Answer Date Recorded In the past 12 months has [employer], gas, oil, or water [employer] threatened to shut off services in your [...] living in a longterm (including now)? No 09/27/2024 IPV Inpatient Questions [...] PM EST Office [place] [phone] Isabela Hayward APRN [facility] [place] [address] 11/10/2024 10:00 AM EST Office Visit [place] [phone] Dai Whitman APRN 11/21/2024 2:15 PM EST Office [place] [phone] Dayanara Grover MD [facility] [place] [address] documented as of this encounter Procedures Procedure Name Priority Date/Time Associated Diagnosis Comments CBC (WITH DIFF) Routine 10/16/2024 MRSA bacteremia CK Routine 10/16/2024 MRSA bacteremia COMPREHENSIVE METABOLIC PANEL Routine 10/16/2024 MRSA bacteremia documented in this encounter Results * (ABNORMAL) CBC (with Diff) (10/16/2024) WBC - External 10.99(H) [facility] RBC - External 3.71(L) [facility] Hemoglobin - External 10.8(L) [facility] Hematocrit - External 33.8(L) [facility] MCV - External 91 [facility] MCH - External 29.1 [facility] MCHC - External 32.0 [facility] RDWCV - External 14.2(H) [facility] Platelets - External 512(H) [facility] MPV - External 9.8 [facility] NRBC % - External 0.0 [facility] NRBC Abs - External 0.0 [facility] Neutrophils % - External 64.2 [facility] Lymphocytes % - External 25.8 [facility] Monocytes % - External 6.8 [facility] Eosinophils % - External 2.0 [facility] Basophils % - External 0.9 [facility] Immature Gran % - External 0.3 [facility] Neutr ABS (ANC) - External 7.06(H) [facility] Lymphocyte ABS - External 2.84 [facility] Monocyte ABS - External 0.75 [facility] Eosinophil ABS - External 0.22 [facility] Basophil ABS - External 0.10 [facility] Blood VENOUS BLOOD SPECIMEN / Unknown 10/16/2024 Amaya Hernandez MD HEMATOLOGY ORDERABLE [place] [id number] [facility] [address] [place] [phone] * CK (10/16/2024) CK, Total - External 39 [facility] Blood VENOUS BLOOD SPECIMEN / Unknown 10/16/2024 Amaya Hernandez MD CHEMISTRY ORDERABLES Performing Organization Address City/[facility]/ZIP Co de Phone Number [address] [place], [place] [address] [phone] * (ABNORMAL) Comprehensive metabolic panel Non-fasting (10/16/2024) Glucose Lvl - External 124(H) [facility] Blood Urea Nitrogen - External 17 [facility] Creatinine - External 0.9 [facility] EGFR - External 104.05 [facility] Anion Gap - External 11.6(H) [facility] Sodium - External 141 [facility] Potassium - External 4.3 [facility] Chloride - External 103 [facility] CO2 - External 26.4 [facility] Calcium - External 9.0 [facility] Protein, Total - External 6.9 [facility] Albumin - External 3.0(L) [facility] Total Bilirubin - External 0.20 [facility] Alk Phos - External 124(H) [facility] AST (SGOT) - External 12 [facility] ALT (SGPT) - External 22 [facility] Blood VENOUS BLOOD SPECIMEN / Unknown 10/16/2024 Amaya Hernandez MD CHEMISTRY ORDERABLES [address] [place], [place] [address] [phone] documented in this encounter Visit Diagnoses Diagnosis MRSA bacteremia Bacteremia documented in this encounter Care Teams Critical Care Transport Nurse Relationship Specialty Start Date End Date Charles Romero [place] [address] PCP - General Internal Medicine 09/18/24 documented as of this encounter
--- OUTSIDE RECORDS SUMMARY | 2024-10-31 15:29 | XMS_ITS | Encounter Summary ---
Author Organization [facility] [place] [address] Care Team Providers Care Ton Cylinder Inspector Name Role Phone Charles Romero Primary Care Provider + Encounter Details Date Type Department Care Team (Late st Contact Info) Description 10/13/2024 [place] [phone] Libia Nuno MA Social History Tobacco Use Types Packs/Day Years Used Date Smoking Tobacco: Every Day Cigarettes 1 25 Started: 12/28/1986; Last attempted to quit: 12/28/2011 Smokeless Tobacco: Never Alcohol Use Standard Drinks/Week Comments No 0 (1 standard drink = 0.6 oz pur e alcohol) [facility] Utilities Answer Date Recorded In the past 12 months has e [employer], gas, oil, or water [employer] threatened to shut off services in your [...] in a correction (including now)? No 09/27/2024 IPV Inpatient Questions [...] the original note were not included. [facility]ed [facility] due to the following: Received the PA request below. Our team does not handle the Pas for this department. Messaged Vascular nurse pool as PCP is not one of ours. documented in this encounter Plan of Treatment Upcoming Encounters Date Type Department Care Team (Late st Contact Info) Description 11/09/2024 1:30 PM EST Office [place] [address] Isabela Hayward APRN [facility] [place] [address] 11/10/2024 10:00 AM EST Office [place] [address] Dai Whitman APRN 11/21/2024 2:15 PM EST Office [place] [address] Dayanara Grover MD [facility] [place] [address] documented as of this encounter Visit Diagnoses Not on filedocumented in this encounter Care Teams Ton Cylinder Inspector Relationship Specialty Start Date End Date Charles Romero PA [facility] [place] [address] PCP - General Internal Medicine 09/18/24 documented as of this encounter
--- OUTSIDE RECORDS SUMMARY | 2024-10-31 15:29 | XMS_ITS | Encounter Summary ---
Author Organization [facility] [place] [address] Care Team Providers Care Coater Hand Name Role Phone Charles Romero Primary Care Provider + Encounter Details Date Type Department Care Team (Late st Contact Info) Description 10/19/2024 10:00 AM EST Office [place] [address] Dai Whitman APRN Critical limb ischemia of [...] any [facility] the [facility] were [facility] or living in a senior living (including now)? No 09/27/2024 DH IPV Inpatient [...] this encounter Progress Notes * Dai Whitman, SHOE POLISHER - 10/19/2024 10:00 AM EST Images from the original note were not included. Vascular Follow-Up Reason for Visit: hospital check HPI: Lux Llanos Zack Winter is a 49 y.o. 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 Irrigation of left groin and calf incision sites (Benedict) 09/28/24: LEFT great saphenous vein harvest, Removal of left common femoral and below knee popliteal artery PFTE graft willard and common femoral bovine pericardial patch, Vein patch angioplasty of LEFTcommon femoral artery and below-knee popliteal artery, Rotational sartorius muscle flap placement over LEFT femoral artery, Excisional debridement, washout, and LEFT groin wound VAC placement (Benedict) 09/29/24: EXPLORATION W\O SURGICAL REPAIR, Left FEMORAL [...] 3 times daily. Use as instructed Indications: [id number] each 1 FreeStyle Lancets 28 gauge Misc [...] 2nd toe amputation who was transferred from [facility] given concern for infected left fem-BK poplitealPTFE bypass. HE was admitted from [facility] for concern for infection and underwent multiple [...] Squash Vitamin C Strawberries Bok Ryan Broccoli [place] sprouts Cabbage Kiwi Zinc Beans Eggs Fish [...] PM EST Office [place] [address] Isabela Hayward, SHOE POLISHER [facility] [place] [address] 11/10/2024 10:00 AM EST Office [place] [phone] Dai Whitman APRN 11/21/2024 2:15 PM EST Office [place] [phone] Dayanara Grover MD [facility] [place] [address] documented as of this encounter Visit Diagnoses Diagnosis Critical limb ischemia of left lower extremity Infection of vascular bypass graft, sequela documented in this encounter Care Teams Coater Hand Relationship Specialty Start Date End Date Charles Romero PA [facility] [place] [address] PCP - General Internal Medicine 09/18/24 documented as of this encounter
--- OUTSIDE RECORDS SUMMARY | 2024-10-31 15:29 | XMS_ITS | Encounter Summary ---
Author Organization [facility] [place] [address] Care Team Providers Care Supervisor Drying Name Role Phone Charles Romero Primary Care Provider + Encounter Details Date Type Department Care Team (Late st Contact Info) Description 10/11/2024 Telephone [place] [phone] Vangie Kumar, RN Social History Tobacco Use Types Packs/Day Years Used Date Smoking Tobacco: Every Day Cigarettes 1 25 Started: 12/28/1986; Last attempted to quit: 12/28/2011 Smokeless Tobacco: Never Alcohol Use Standard Drinks/Week Comments No 0 (1 standard drink = 0.6 oz pur e alcohol) [facility] Utilities Answer Date Recorded In the past 12 months has e [employer], gas, oil, or water [employer] threatened to shut off services in your [...] any time in the past 12 m [facility], were you homeless or living in a fci (including now)? No 09/27/2024 IPV Inpatient Questions [...] Kumar RN - 10/11/2024 2:38 PM EST Supervisor Sewing Room took a phone call from this patient's mom as she was calling to clarify discharge medications for her son. Supervisor Sewing Room reached out to the inpatient SURVEYING TEACHER's and asked for some clarification. Supervisor Sewing Room then passed on to the mom that [...] PM EST Office Visit Infectious Disease at [facility] [place] [address] Isabela Hayward, RESHMA [facility] [place] [address] 11/10/2024 10:00 AM EST Office [place] [address] Dai Whitman APRN 11/21/2024 2:15 PM EST Office [place] [address] Dayanara Grover MD [facility] [place] [address] documented as of this encounter Visit Diagnoses Not on filedocumented in this encounter Care Teams Supervisor Drying Relationship Specialty Start Date End Date Charles Romero PA [facility] [place] [address] PCP - General Internal Medicine 09/18/24 documented as of this encounter
--- OUTSIDE RECORDS SUMMARY | 2024-10-31 15:29 | XMS_ITS | Encounter Summary ---
[facility] Organization [facility] Address [facility] [place] [address] Care Team Providers Care Giving Officer Name Role Phone Charles Romero Primary Care Provider + Encounter Details Date Type Department Care Team (Late st Contact Info) Description 10/20/2024 Notes Only [place] [address] Hayley Torres MD [facility] VASCULAR [place] [address] Social History Tobacco Use Types Packs/Day Years Used Date Smoking Tobacco: Every Day Cigarettes 1 25 Started: 12/28/1986; Last attempted to quit: 12/28/2011 Smokeless Tobacco: Never Comments:Quit 09/2024 Alcohol Use Standard Drinks/Week Comments No 0 (1 standard drink = 0.6 oz pur e alcohol) [facility] Utilities Answer Date Recorded In the past 12 months has [employer] electric, gas, oil, or water company threatened [...] as of this encounter Progress Notes * Hayley Torres MD - 10/20/2024 1:31 PM EST Patient presented to outside ED. Was seen yesterday in clinic, and noted that his PICC line appeared to have issues and he was seen in ID. The PICC line was removed as the note states the tubing had come apart and was open to the air. They scheduled him an appointment in the vascular access on 10/23/2024 for a new PICC line. The plan was to bridge him with TMP/SMX DS 2 PO bid for 5 days, then continue with IV Daptomycin once new PICC is in. Patient presented to the ED thinking he was can get a new PICC line, and did not know the details of the above discussion. I relayed this information to the outside ED provider, and they will communicate this to the patient. I also provided the appointment information available in our chart for 10/23/2024 to ensure that he arrives appropriately as well as ensure that he will get his Bactrim filled and start that immediately. Hayley Torres MD documented in this encounter Plan of Treatment Upcoming Encounters Date Type Department Care Team (Late st Contact Info) Description 11/09/2024 1:30 PM EST Office Visit [place] [address] Isablea Hayward, DB2 DBA [facility] INFECTIOUS [place] [address] 11/10/2024 10:00 AM EST Office Visit [place] [phone] Dai Whitman APRN 11/21/2024 2:15 PM EST Office [place] [phone] Dayanara Grover MD [facility] DR ENDOCRINOLOGY [place] [address] documented as of this encounter Visit Diagnoses Not on filedocumented in this encounter Care Teams Giving Officer Relationship Specialty Start Date End Date Charles Romero PA [facility] [address] [place] [address] [address] PCP - General Internal Medicine 09/18/24 documented as of this encounter
--- OUTSIDE RECORDS SUMMARY | 2024-10-31 15:29 | XMS_ITS | Encounter Summary ---
Author Organization [facility] [place] [address] Care Team Providers Care Waterproof Material Folder Name Role Phone Charles Romero Primary Care [...] drink = 0.6 oz pur e alcohol) [facility] Utilities Answer Date Recorded In the past [...] PM EST Office [place] [address] Isabela Hayward, JOB DEVELOPMENT SPECIALIST [facility] [place] [address] 11/10/2024 10:00 AM EST Office [place] [address] Dai Whitman APRN 11/21/2024 2:15 PM EST [place] [address] Dayanara Grover MD [facility] [place] [address] documented as of this encounter Visit Diagnoses Not on filedocumented in this encounter Care Teams Waterproof Material Folder Relationship Specialty Start Date End Date Charles Romero PA [facility] [place] [address] PCP - General Internal Medicine 09/18/24 documented as of this encounter
--- OUTSIDE RECORDS SUMMARY | 2024-10-31 15:29 | XMS_ITS | Encounter Summary ---
Author Organization [facility] Address [facility] [place] [address] Care Team Providers Care Soup Mixer Name Role Phone Charles Romero Primary Care Provider + Encounter Details Date Type Department Care Team (Late st Contact Info) Description 10/23/2024 12:24 PM EST - 10/23/2024 11:59 PM [facility] Hospital Encounter XRay at [address] [place] [address] Isabela Hayward APRN [facility] [place] [address] Vascular graft infection, initial encounter Discharge Disposition: Home Social History Tobacco Use [...] in the past 12 m [facility], were you homeless or living in a usp (including now)? No 09/27/2024 [facility] IPV Inpatient [...] - See Instructions). FLUSH PROTOCOL WITH MEDICATIONS ([facility]): Before med infusion: flush with NS [...] - See Instructions). FLUSH PROTOCOL WITH MEDICATIONS ([facility]): Before med infusion: flush with NS [...] mouth daily. documented as of this encounter Procedure Notes * Gallo Oreilly RN - 10/23/2024 1:22 PM EST PICC/Midline Insertion Procedure Note Indications: Anti-infective This insertion was not to replace a [...] correctpatient positioning and presence of the site navneet was confirmed as applicable. The medical history and chart were reviewed to rule out potential contraindications to the planned procedure. Hand Hygiene: The permanent mold supervisor did perform hand hygiene prior to line insertion. Catheter type: PICC Lot number: [id number] Procedure Technique: Skin was prepped with chlorhexidine. [...] seldinger technique and fluoroscopy. Arm circumference was 35 cm at 2 cm above the insertion site. Final catheter length (with trimming): 42 cm Internal: 42 cm External: 0 cm Tip in cavoatrial junction per Dr Snow. The line was not placed over a guidewire. Post Procedure: Diagnosis: PICC line replacement Blood return noted on aspiration of line after placement confirmed. 5 mls of normal saline infused free flowing to gravity via PICC after insertion. Sterile dressing applied: CHG Impregnated Tegaderm. Findings: The patient did tolerate the procedure well. No Complications. Procedure Comments: Successful PICC placement Gallo Oreilly RN 10/23/2024 documented in this encounter Plan of Treatment Upcoming Encounters Date Type Department Care Team (Late st Contact Info) Description 11/09/2024 1:30 PM EST Office [place] [phone] Isabela Hayward, RESHMA [facility] [place] [address] 11/10/2024 10:00 AM EST Office [place] [phone] Dai Whitman APRN 11/21/2024 2:15 PM EST Office [place] [phone] Dayanara Grover MD [facility] DR [place] [address] documented as of this encounter Procedures Procedure Name Priority Date/Time Associated Diagnosis Comments XR PICC PLACEMENT OVER 5 YEARS (IV TEAM) Routine 10/23/2024 1:40 PM EST Vascular graft infection, initial encounter documented in this encounter Results * XR PICC Placement Over 5 Years with Imaging Guidance (IV Team) (10/23/2024 1:40 PM EST) WORKSTATION ID [id number] RAD Anatomical Region Laterality Modality N/A Radio [...] who have questions please contact the health weekend caregiver that requested your imaging first. ? Electronically signed by: Lizbet Snow MD, [facility] ([phone]), at 10/23/2024 2:38 PM Procedure Note Lizbet Ramirez MD - 10/23/2024 [...] patients who have questions please contactthe health weekend caregiver that requested your imaging first. Isabela Hayward APRN IMG [facility]DE[facility] documented in this encounter Visit Diagnoses Diagnosis Vascular graft infection, initial encounter documented in this encounter Care Teams Soup Mixer Relationship Specialty Start Date End Date Charles Romero PA [address] [place] [address] PCP - General Internal Medicine 09/18/24 documented as of this encounter
--- OUTSIDE RECORDS SUMMARY | 2024-10-31 15:30 | XMS_ITS | Encounter Summary ---
Author Organization [facility] Address [facility] [place] [address] Care Team Providers Care Watchmaking Teacher Name Role Phone Charles Romero Primary Care Provider + Encounter Details Date Type Department Care Team (Late st Contact Info) Description 10/07/2024 Notes [place] [address] Amaya Hernandez MD [facility] [place] [address] Social History Tobacco Use Types Packs/Day Years Used Date Smoking Tobacco: Every Day Cigarettes 1 25 Started: 12/28/1986; Last attempted to quit: 12/28/2011 Smokeless Tobacco: Never Alcohol Use Standard Drinks/Week Comments No 0 (1 standard drink = 0.6 oz pur e alcohol) [facility] Utilities Answer Date Recorded In the past 12 months has e electric, gas, oil, or water [employer] threatened to shut off services in your [...] cultures - 09/28 and 09/29 Blood culture [[id number]] (Abnormal) (Susceptibility) Collected: 09/26/24 1422 Lab Status: Edited Result - FINAL Specimen: Blood, Venous Updated: 10/07/24 0740 Blood Culture Methicillin Resistant Staphylococcus aureus Comment: detected by PCR Isolate saved. If future testing is required, contact the Microbiology Warp Picker. Gram Stain Aerobic Bottle: Gram positive cocci [...] MD Infectious Disease Staff Physician Mobile number [phone] 10/07/24 documented in this encounter Plan of Treatment Upcoming Encounters Date Type Department Care Team (Late st Contact Info) Description 11/09/2024 1:30 PM EST Office [place] [address] Isabela Hayward, FIREBRICK LAYER [facility] DR [place] [address] 11/10/2024 10:00 AM EST Office [place] [phone] Dai Whitman APRN 11/21/2024 2:15 PM EST Office [place] [phone] Dayanara Grover MD [facility] [place] [address] documented as of this encounter Visit Diagnoses Not on filedocumented in this encounter Care Teams Watchmaking Teacher Relationship Specialty Start Date End Date Charles Romero PA [facility] [place] [address] PCP - General Internal Medicine 09/18/24 documented as of this encounter
--- OUTSIDE RECORDS SUMMARY | 2024-10-31 15:30 | XMS_ITS | Encounter Summary ---
Author Organization [facility] [place] [address] Care Team Providers Care Corporate Sales Representative Name Role Phone Charles Romero Primary Care Provider + Reason for Referral * Consultation (Routine) - Authorized Specialty Diagnoses / Procedures Referred By Contac t Referred To Contact Infectious Diseases Diagnoses MRSA bacteremia Amaya Hernandez MD [facility] [place] [address] Amaya Hernandez MD [facility] [place] [address] Referral ID Status Reason Start Date Expiration Date Visits Requested Visits Authorized [id number] Authorized Assume Subset of Care 10/09/2024 10/09/2025 1 1 * Home Health Care (Routine) - Authorized Specialty Diagnoses / Procedures Referred By Contac t Referred To Contact Diagnoses Vascular graft infection, initial encounter María Carranza APRN [facility] [place] [address] [facility] [place] [address] Referral ID Status Reason Start Date Expiration Date Visits Requested Visits Authorized [id number] Authorized Consult, Test & Treat 10/10/2024 04/08/2025 999 999 Reason for Visit * Auth/Cert (Routine) Specialty Diagnoses / Procedures Referred By Contac t Referred To Contact Diagnoses Vascular graft infection, initial encounter Sepsis [A41.9] T82.7XXA Procedures EMERGENCY IPI Angel Gonsalez MD [facility] [place] [address] [facility] Referral ID Status Reason Start Date Expiration Date Visits Re quested Visits Authorized [id number] 1 1 Encounter Details Date Type Department Care Team (Latest Contact Info) Description 09/26/2024 2:08 PM EST - 10/10/2024 5:11 PM EST Hospital Encounter Surgical Unit Level 4 [place] [id number] Marko Dickson MD [facility] [place] [address] Hayley Torres MD [facility] [place] [address] Vascular graft infection, initial encounter; PAD (peripheral [...] any time in the past 12 m [facility], were you homeless or living in a longterm (including now)? No 09/27/2024 DH IPV Inpatient [...] Operations/Major Procedures: 09/26/24: Explant of infected LEFT ANESTHESIOLOGY TECH to below-knee popliteal artery PTFE bypass graft [...] Meeks MD - Resident - Assisting * Anbael Finney MD - Assisting Attending 09/28/24: LEFT [...] 2nd toe amputation who was transferred from [facility] given concern for infected left fem-BK popliteal [...] pericardial patch and PTFE willard over the ANESTHESIOLOGY TECH was unincorporated. - Resection of prior femoral [...] 2 tablespoons of dried fruit. Milk and fx-rdssq-uwpee yogurt have 15 grams of carbs in a serving. A serving is 1 cup of milk or 3/4 cup (6 oz) of ju-ntagy-ygwwv yogurt. Starchy vegetables have 15 grams of carbs in a serving. A serving is ?? cup of mashed potatoes or sweet potato; 1 cup winter squash; ?? of a small baked potato; ?? cup of cooked beans; or ?? cup cooked corn or green peas. Learn how much carbs to eat each day and at each meal. A dietitian or certified surgical technician can teach you how to keep [...] was scheduled for a f/u nutrition evaluation. Balance Wheel Screw Hole Tapper met pt at bedside. Pt sharedthat his [...] Based on current findings- home (sister & bccwpun-hh-izw's home) Consult Recommendations: No other consults recommended [...] Loss: None Karolyn Hudson MD Vascular Surgery, 6363 10/09/24 Important Studies and Lab Data: Labs: [...] 05/29/2024, no significant changes. Procedure Limited - 70350. Doppler - 70030. Color Doppler - 05769. Suboptimal quality. This study is limited because [...] series 3, image 8 and 641, 012, 179, 372. No other rim-enhancing fluid collection is seen. [...] wedged between the vastus medialis and adductor [place] muscle. This tracks into the popliteal fossa [...] PM Isabela Hayward APRN Infectious Disease at [facility] Arrive at: Home [phone] To view instructions for your video visit, click here, or visit this website: [email or web address] If you have not previously downloaded the [facility] patient portal software, [employer] ([place]), please do so by clicking one of the links below or searching in your device's lobito store. [employer] devices 11/09/2024 1:30 PM Isabela Hayward APRN Infectious Disease at [facility] Arrive at: Parts Inspector Area [phone] 11/21/2024 2:15 PM Dayanara Grover MD Endocrinology at [facility] Arrive at: Parts Inspector Area 3A [phone] Future Orders Complete By Expires CBC (with Diff) [CEX618 Custom] 10/17/2024 12/11/2024 Process Instructions: INCLUDES: WBC, RBC, Hgb, Hct, Platelets, RBC Indices and Differential Scheduling Instructions: Comments: Questions: OPAT: Order / Recommendation for Post Discharge IV Antibiotic Management [ELW748 CPT(R)] As directed Process Instructions: If no progress note charted, please enter Clinical details in comments. Scheduling Instructions: Comments: - If this order was signed greater than 72 hours prior to [facility] discharge, please call to confirm the accuracy of this order. Please Fax all results to: [facility] Program Infectious Disease Section [facility], [facility], [place] [address] FAX: - After hours, please contact the Infectious Disease Physician validation consultant at . - Line care instructions - see flush/heparin orders. Facilities may follow organizational policies/practices regarding heparin. - snf for medication administration/production control supervisor and catheter care/maintenance authorized. - CVC/PICC Dressing Change weekly and PRN Please use CHG or Bio Patch RN: Please care for PICC line including dressing changes weekly and prn. Please draw labs every Wednesday and PRN and fax results to [facility] at [phone]. Please draw labs off PICC line. Please see [facility] for lab draw details. Please RN visit for IV ABX teaching and ongoing assessment. Detention for Medication Administration/Hookup and catheter care/maintenance: - Teach Patient/Caregiver goals/self-monitoring/therapy administration to independence per the Nursing Care Plan. - snf visit frequency; initial, weekly and 2 PRN [...] Amaya Hernandez MD Referral for Outpatient Antibiotics [SHM9072 CPT(R)] As directed Process Instructions: Scheduling Instructions: [...] Jr. for admission to Home Health. [address] [facility] [address] Phone Number: [phone] (home) Date of : 1975 Inpatient DOCUMENTATION FOR VNA SERVICES (INCLUDING THOSE PATIENTS WITH MEDICARE COVERAGE REQUIRING HOME VNA SERVICES AND/OR HOSPICE SERVICES) PATIENT'S LOCATION: Geovanna Dixon Jr. [address] [facility] [address] [phone] (home) Cell: Telephone Information: Transportation Security Officer's Name: Geovanna In discussion with the attending physician, it is certified that this patient is under their care and that they, or a Nurse Practitioner, Clinical Nurse specialist or Physician Maintenance Groundman who is working directly with them, had [...] for managing ADLs. HOME HEALTH CARE AGENCY: [facility]. [address] [place] [address] START OF CARE: within 24-48 hours of discharge Patient has Medicare Please note that any additional orders needs or changes will need to be obtained from this patient's PCP: JUSTIN Roberson [address] [facility] [address] . All VNA agencies which cover the area of patient's residence have been reviewed, either verbally or in writing, andpatient/family have chosen the home health care agency noted. Questions: Disciplines Requested: Nursing Physical Therapy Occupational Therapy Recurring Lab Work Interval Expires CBC (with Diff) [[id number] Custom] Once a week until 12/10/2024 12/10/2024 [...] For any problems or questions please call [phone] For issues on weeknights after 5pm and weekends please call [phone] and ask for the Vascular Fellow validation consultant. Discharge Medications: Your Medications New Medications Dose [...] - See Instructions). FLUSH PROTOCOL WITH MEDICATIONS ([facility]): Before med infusion: flush with NS 10 [...] can get this completed at 3L at [facility] prior to your scheduled appointment. Stop atorvastatin [...] For any problems or questions please call [phone] For issues on weeknights after 5pm and weekends please call [phone] and ask for the Vascular Fellow validation consultant. documented in this encounter Discharge Instructions * [...] 2 tablespoons of dried fruit. Milk and nu-okjeu-kleib yogurt have 15 grams of carbs in a serving. A serving is 1 cup of milk or 3/4 cup (6 oz) of hp-cymxb-xtswu yogurt. Starchy vegetables have 15 grams of carbs in a serving. A serving is ?? cup of mashed potatoes or sweet potato; 1 cup winter squash; ?? of a small baked potato; ?? cup of cooked beans; or ?? cup cooked corn or green peas. Learn how much carbs to eat each day and at each meal. A dietitian or certified surgical technician can teach you how to keep [...] can get this completed at 3L at [facility] prior to your scheduled appointment. Stop atorvastatin [...] For any problems or questions please call [phone] For issues on weeknights after 5pm and weekends please call [phone] and ask for the Vascular Fellow validation consultant. documented in this encounter Medications at Time [...] to contact. Reviewed roles and responsibilities of INDUSTRIAL ENGINEERING PROFESSOR and infusion vendor. Contact information for ID and Vascular team/clinic, INDUSTRIAL ENGINEERING PROFESSOR and infusion vendor given to pt. Discussed f/u appointments in ID 5C clinic, telephone and tele health. Pt verbalized understanding. All questions answered. IV & PO ABX Medications: Daptomycin 700mg IV daily Start/anticipated end date: 10/10/24-11/10/24 INDUSTRIAL ENGINEERING PROFESSOR: [place] Infusion vendor: [facility] IV Access: 4 Fr. single lumen Bard [...] 2 tablespoons of dried fruit. Milk and oo-drhra-nbdja yogurt have 15 grams of carbs in a serving. A serving is 1 cup of milk or 3/4 cup (6 oz) of wc-abfrp-uimfl yogurt. Starchy vegetables have 15 grams of carbs in a serving. A serving is ?? cup of mashed potatoes or sweet potato; 1 cup winter squash; ?? of a small baked potato; ?? cup of cooked beans; or ?? cup cooked corn or green peas. Learn how much carbs to eat each day and at each meal. A dietitian or certified surgical technician can teach you how to keep [...] this time. OT to complete orders. Pager: [phone] Fabián Burrows OT 10/09/2024 Occupational Therapy Rehabilitation [...] 2nd toe amputation who was transferred from [facility], 09/26/24 given concern for infected left fem-BK popliteal PTFE bypass. He is now s/p an explant of an infected left femoral-below knee popliteal artery bypass graft (09/26), I/D groin abscess (09/27), L GSV harvest, vein patch angioplasty, L ANESTHESIOLOGY TECH and BK pop w/ sartorius flap L fem, I/D, 09/29 L sartorius flap revision, vac change. 10/03/24 NPO at [facility] for OR wound exploration. Wound [...] He mentions he'll stay with sister and bdsftkp-zw-xfa upon DC. Pt resting in bed upon [...] up with R and down with L, jmlk-gh-adry. Balance: Sitting: NORMAL- EOB unsupported good postural [...] Based on current findings- home (sister & vndjgxo-fm-mtu's home) Consult Recommendations: No other consults recommended [...] 15 (TE-F) minutes TERRY JIMENEZ PT Pager: [phone] Physical Therapy Inpatient Rehabilitation Department * María [...] 2nd toe amputation who was transferred from [facility] given concern for infected left fem-BK popliteal [...] smoking 1 week ago. He presented to [facility] on 09/26 and went to the OR [...] Procedure Component Value - Date/Time Blood culture [[id number]] (Abnormal) (Susceptibility) Collected: 09/26/24 1422 Lab Status: Edited Result - FINAL Specimen: Blood, Venous Updated: 10/07/24 0740 Blood Culture Methicillin Resistant Staphylococcus aureus Comment: detected by PCR Isolate saved. If future testing is required, contact the Microbiology Calciner Operator. Gram Stain Aerobic Bottle: Gram positive cocci in clusters Susceptibility Methicillin Resistant Staphylococcus aureus MINIMUM INHIBITORY CONCENTRATION VITEK 2 METHOD Clindamycin Resistant Daptomycin Susceptible Gentamicin Susceptible [1] Linezolid Susceptible Oxacillin Resistant Trimethoprim/Sulfa Susceptible Vancomycin Susceptible [1] Gentamicin is not appropriate for monotherapy for gram-positive infections. AFB culture [[id number]] Collected: 09/27/24 1654 Lab Status: Preliminary result Specimen: Tissue from Thigh, Left Updated: 10/05/24 1201 Acid Fast Bacilli Culture No acid fast bacilli isolated at 1 week. Acid Fast Stain No acid fast bacilli seen Blood culture [[id number]] Collected: 09/29/242123 Lab Status: Final result Specimen: Blood, Venous Updated: 10/04/24 2301 Blood Culture No growth at 120 hours Blood culture [[id number]] Collected: 09/29/242123 Lab Status: Final result Specimen: Blood, Venous Updated: 10/04/24 2301 Blood Culture No growth at 120 hours AFB culture [[id number]] Collected: 09/26/24 1702 Lab Status: Preliminary result Specimen: Abscess from Knee, Left Updated: 10/04/24 1201 Acid Fast Bacilli Culture No acid fast bacilli isolated at 1 week. Acid Fast Stain No acid fast bacilli seen Blood culture [[id number]] Collected: 09/28/24 1749 Lab Status: Final result [...] 2nd toe amputation who was transferred from [facility] given concern for infected left fem-BK popliteal PTFE bypass. He is now s/p an explantof an infected left femoral-below knee popliteal artery bypass graft (09/26), I/D groin abscess (), L GSV harvest, vein patch angioplasty, L ANESTHESIOLOGY TECH and BK pop w/ sartorius flap L fem, I/D, 09/29 L sartorius flap revision, vac change. 10/09/24: Progressing well post surgically. Will pull medial thigh drain today, retain sartorius flap drain along with wound vac x 3 sponges ([facility] has approved for home vac) and [...] PRN PICC dressing change completed as per [facility] protocol. Positive pressure displacement connector (Max Plus) [...] 2nd toe amputation who was transferred from [facility] given concern for infected left fem-BK popliteal [...] smoking 1 week ago. He presented to [facility] on 09/26 and went to the OR [...] Procedure Component Value - Date/Time Blood culture [[id number]] (Abnormal) (Susceptibility) Collected: 09/26/24 1422 Lab Status: Edited Result - FINAL Specimen: Blood, Venous Updated: 10/07/24 0740 Blood Culture Methicillin Resistant Staphylococcus aureus Comment: detected by PCR Isolate saved. If future testing is required, contact the Microbiology Calciner Operator. Gram Stain Aerobic Bottle: Gram positive cocci in clusters Susceptibility Methicillin Resistant Staphylococcus aureus MINIMUM INHIBITORY CONCENTRATION VITEK 2 METHOD Clindamycin Resistant Daptomycin Susceptible Gentamicin Susceptible [1] Linezolid Susceptible Oxacillin Resistant Trimethoprim/Sulfa Susceptible Vancomycin Susceptible [1] Gentamicin is not appropriate for monotherapy for gram-positive infections. AFB culture [[id number]] Collected: 09/27/241653 Lab Status: Preliminary result Specimen: Tissue from Thigh, Left Updated: 10/05/24 1201 Acid Fast Bacilli Culture No acid fast bacilli isolated at 1 week. Acid Fast Stain No acid fast bacilli seen Blood culture [[id number]] Collected: 09/29/242123 Lab Status: Final result Specimen: Blood, Venous Updated: 10/04/24 2301 Blood Culture No growth at 120 hours Blood culture [[id number]] Collected: 09/29/242123 Lab Status: Final result Specimen: Blood, Venous Updated: 10/04/24 2301 Blood Culture No growth at 120 hours AFB culture [[id number]] Collected: 09/26/24 170 Lab Status: Preliminary result Specimen: Abscess from Knee, Left Updated: 10/04/24 1201 Acid Fast Bacilli Culture No acid fast bacilli isolated at 1 week. Acid Fast Stain No acid fast bacilli seen Blood culture [[id number]] Collected: 09/28/24 1749 Lab Status: Final result Specimen: Blood, Venous Updated: 10/03/24 1901 Blood Culture No growth at 120 hours Blood culture [[id number]] (Abnormal) Collected: 09/27/242132 Lab Status: Final result Specimen: Blood, Venous Updated: 10/02/24 0804 Blood Culture Methicillin Resistant Staphylococcus aureus Comment: Susceptibilities previously reported. Gram Stain Aerobic Bottle: Gram positive cocci in clusters Tissue Culture, Aerobic & Anaerobic [[id number]] Collected: 09/27/241653 Lab Status: Final result Specimen: Tissue from Thigh, Left Updated: 10/01/24 1554 Narrative: The following orders were created for panel order Tissue Culture, Aerobic & Anaerobic. Procedure Abnormality Status --------- ------ Tissue Culture, Aerobic ...[[id number]] Anaerobic Culture[[id number]] Final result Please view results for these tests on the individual orders. Anaerobic Culture [[id number]] Collected: 09/27/241653 Lab Status: Final result Specimen: Tissue from Thigh, Left Updated: 10/01/24 155 Anaerobic Culture No anaerobic organisms isolated Tissue Culture, Aerobic Only [[id number]] (Abnormal) (Susceptibility) Collected: 09/27/24 4742 Lab Status: Final result Specimen: Tissue from [...] 2nd toe amputation who was transferred from [facility] given concern for infected left fem-BK popliteal PTFE bypass. He is now s/p an explantof an infected left femoral-below knee popliteal artery bypass graft (09/26), I/D groin abscess (), L GSV harvest, vein patch angioplasty, L ANESTHESIOLOGY TECH and BK pop w/ sartorius flap L [...] Antiplatelet: ASA 81mg daily Vibha C Marcelino, DISH UP PERSON 10/08/2024 Pager: [phone] * Vibha Benson APRN - 10/07/2024 8:52 AM EST Images from the original note were not included. Vascular Surgery Progress Note Geovanna Dixon Jr. is a 49 y.o. 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 He presented to [facility] on 09/26 and went to the OR [...] Procedure Component Value - Date/Time Blood culture [[id number]] (Abnormal) (Susceptibility) Collected: 09/26/24 1422 Lab Status: Edited Result - FINAL Specimen: Blood, Venous Updated: 10/07/24 0740 Blood Culture Methicillin Resistant Staphylococcus aureus Comment: detected by PCR Isolate saved. If future testing is required, contact the Microbiology Calciner Operator. Gram Stain Aerobic Bottle: Gram positive cocci in clusters Susceptibility Methicillin Resistant Staphylococcus aureus MINIMUM INHIBITORY CONCENTRATION VITEK 2 METHOD Clindamycin Resistant Daptomycin Susceptible Gentamicin Susceptible [1] Linezolid Susceptible Oxacillin Resistant Trimethoprim/Sulfa Susceptible Vancomycin Susceptible [1] Gentamicin is not appropriate for monotherapy for gram-positive infections. AFB culture [[id number]] Collected: 09/27/24 1654 Lab Status: Preliminary result Specimen: Tissue from Thigh, Left Updated: 10/05/24 1201 Acid Fast Bacilli Culture No acid fast bacilli isolated at 1 week. Acid Fast Stain No acid fast bacilli seen Blood culture [[id number]] Collected: 09/29/242123 Lab Status: Final result Specimen: Blood, Venous Updated: 10/04/24 2301 Blood Culture No growth at 120 hours Blood culture [[id number]] Collected: 09/29/242123 Lab Status: Final result Specimen: Blood, Venous Updated: 10/04/24 2301 Blood Culture No growth at 120 hours AFB culture [[id number]] Collected: 09/26/24 1702 Lab Status: Preliminary result Specimen: Abscess from Knee, Left Updated: 10/04/24 1201 Acid Fast Bacilli Culture No acid fast bacilli isolated at 1 week. Acid Fast Stain No acid fast bacilli seen Blood culture [[id number]] Collected: 09/28/24 1749 Lab Status: Final result Specimen: Blood, Venous Updated: 10/03/24 1901 Blood Culture No growth at 120 hours Blood culture [[id number]] (Abnormal) Collected: 09/27/242132 Lab Status: Final result Specimen: Blood, Venous Updated: 10/02/24 0804 Blood Culture Methicillin Resistant Staphylococcus aureus Comment: Susceptibilities previously reported. Gram Stain Aerobic Bottle: Gram positive cocci in clusters Tissue Culture, Aerobic & Anaerobic [[id number]] Collected: 09/27/241653 Lab Status: Final result Specimen: Tissue from Thigh, Left Updated: 10/01/24 1554 Narrative: The following orders were created for panel order Tissue Culture, Aerobic & Anaerobic. Procedure Abnormality Status --------- ------ Tissue Culture, Aerobic ...[[id number]] Anaerobic Culture[[id number]] Final result Please view results for these tests on the individual orders. Anaerobic Culture [[id number]] Collected: 09/27/241653 Lab Status: Final result Specimen: Tissue from Thigh, Left Updated: 10/01/24 1554 Anaerobic Culture No anaerobic organisms isolated Tissue Culture, Aerobic Only [[id number]] (Abnormal) (Susceptibility) Collected: 09/27/241653 Lab Status: Final [...] is considered susceptible to doxycycline. Blood culture [[id number]] (Abnormal) Collected: 09/26/24 1845 Lab Status: Final result Specimen: Blood, Venous Updated: 10/01/24 0658 Blood Culture Methicillin Resistant Staphylococcus aureus Comment: isolated. Susceptibilities previously reported. Gram Stain Aerobic Bottle: Gram positive cocci in clusters Abscess/Wound Aspirate Culture, Aerobic & Anaerobic [[id number]] (Abnormal) Collected: 09/26/24 165 Lab Status: Final result Specimen: Abscess from Groin, Left Updated: 09/30/24 1551 Narrative: The following orders were created for panel order Abscess/Wound Aspirate Culture, Aerobic & Anaerobic. Procedure Abnormality Status --------- ------ Abscess/Wound Aspirate C...[[id number]] Abnormal Final result Anaerobic Culture[[id number]] Final result Please view results for these tests on the individual orders. Anaerobic Culture [[id number]] Collected: 09/26/24 165 Lab Status: Final result Specimen: Abscess from Groin, Left Updated: 09/30/24 1551 Anaerobic Culture No anaerobic organisms isolated Abscess/Wound Aspirate Culture, Aerobic & Anaerobic [[id number]] (Abnormal) Collected: 09/26/24 170 Lab Status: Final result Specimen: Abscess from Knee, Left Updated: 09/30/24 1551 Narrative: The following orders were created for panel order Abscess/Wound Aspirate Culture, Aerobic & Anaerobic. Procedure Abnormality Status --------- ------ Abscess/Wound Aspirate C...[[id number]] Abnormal Final result Anaerobic Culture[[id number]] Final result Please view results for these tests on the individual orders. Anaerobic Culture [[id number]] Collected: 09/26/24 1702 Lab Status: Final result Specimen: Abscess from Knee, Left Updated: 09/30/24 1551 Anaerobic Culture No anaerobic organisms isolated Sonicated Tissue/Implant Culture [[id number]] (Abnormal) Collected: 09/26/24 1716 Lab Status: Final result Specimen: Vascular Graft from Leg, Left Updated: 09/30/24 1349 Sonicated Tissue/Implant Culture Methicillin Resistant Staphylococcus aureus Comment: isolated from broth culture. Susceptibilities previously reported. Abscess/Wound Aspirate Culture, Aerobic Only [[id number]] (Abnormal) (Susceptibility) Collected: 09/26/24 1702 Lab Status: [...] to doxycycline. Abscess/Wound Aspirate Culture, Aerobic Only [[id number]] (Abnormal) (Susceptibility) Collected: 09/26/24 1650 Lab Status: [...] 2nd toe amputation who was transferred from [facility] given concern for infected left fem-BK popliteal PTFE bypass. He is now s/p an explantof an infected left femoral-below knee popliteal artery bypass graft (09/26), I/D groin abscess (), L GSV harvest, vein patch angioplasty, L ANESTHESIOLOGY TECH and BK pop w/ sartorius flap L [...] 81mg daily Vibha Benson APRN 10/07/2024 Pager: [phone] * Jessica Renae, PT - 10/06/2024 3:21 [...] 2nd toe amputation who was transferred from [facility] given concern for infected left fem-BK popliteal [...] smoking 1 week ago. He presented to [facility] on 09/26 and went to the OR [...] Procedure Component Value - Date/Time AFB culture [[id number]] Collected: 09/27/24 165 Lab Status: Preliminary result Specimen: Tissue from Thigh, Left Updated: 10/05/24 1201 Acid Fast Bacilli Culture No acid fast bacilli isolated at 1 week. Acid Fast Stain No acid fast bacilli seen Blood culture [[id number]] Collected: 09/29/242123 Lab Status: Final result Specimen: Blood, Venous Updated: 10/04/24 2301 Blood Culture No growth at 120 hours Blood culture [[id number]] Collected: 09/29/242123 Lab Status: Final result Specimen: Blood, Venous Updated: 10/04/24 2301 Blood Culture No growth at 120 hours AFB culture [[id number]] Collected: 09/26/24 1702 Lab Status: Preliminary result Specimen: Abscess from Knee, Left Updated: 10/04/24 1201 Acid Fast Bacilli Culture No acid fast bacilli isolated at 1 week. Acid Fast Stain No acid fast bacilli seen Blood culture [[id number]] Collected: 09/28/24 1749 Lab Status: Final result Specimen: Blood, Venous Updated: 10/03/24 1901 Blood Culture No growth at 120 hours Blood culture [[id number]] (Abnormal) Collected: 09/27/242132 Lab Status: Final result Specimen: Blood, Venous Updated: 10/02/24 0804 Blood Culture Methicillin Resistant Staphylococcus aureus Comment: Susceptibilities previously reported. Gram Stain Aerobic Bottle: Gram positive cocci in clusters Tissue Culture, Aerobic & Anaerobic [[id number]] Collected: 09/27/241653 Lab Status: Final result Specimen: Tissue from Thigh, Left Updated: 10/01/24 1554 Narrative: The following orders were created for panel order Tissue Culture, Aerobic & Anaerobic. Procedure Abnormality Status --------- ------ Tissue Culture, Aerobic ...[[id number]] Anaerobic Culture[[id number]] Final result Please view results for these tests on the individual orders. Anaerobic Culture [[id number]] Collected: 09/27/241653 Lab Status: Final result Specimen: Tissue from Thigh, Left Updated: 10/01/24 1554 Anaerobic Culture No anaerobic organisms isolated Tissue Culture, Aerobic Only [[id number]] (Abnormal) (Susceptibility) Collected: 09/27/241653 Lab Status: Final [...] is considered susceptible to doxycycline. Blood culture [[id number]] (Abnormal) (Susceptibility) Collected: 09/26/24 1422 Lab Status: Edited Specimen: Blood, Venous Updated: 10/01/24 0658 Blood Culture Methicillin Resistant Staphylococcus aureus Comment: detected by PCR Isolate saved. If future testing is required, contact the Microbiology Calciner Operator. Gram Stain Aerobic Bottle: Gram positive cocci in clusters Susceptibility Methicillin Resistant Staphylococcus aureus VITEK 2 METHOD Clindamycin Resistant Gentamicin Susceptible [1] Linezolid Susceptible Oxacillin Resistant Trimethoprim/Sulfa Susceptible Vancomycin Susceptible [1] Gentamicin is not appropriate for monotherapy for gram-positive infections. Blood culture [[id number]] (Abnormal) Collected: 09/26/24 1845 Lab Status: Final result Specimen: Blood, Venous Updated: 10/01/24 0658 Blood Culture Methicillin Resistant Staphylococcus aureus Comment: isolated. Susceptibilities previously reported. Gram Stain Aerobic Bottle: Gram positive cocci in clusters Abscess/Wound Aspirate Culture, Aerobic & Anaerobic [[id number]] (Abnormal) Collected: 09/26/24 1650 Lab Status: Final result Specimen: Abscess from Groin, Left Updated: 09/30/24 1551 Narrative: The following orders were created for panel order Abscess/Wound Aspirate Culture, Aerobic & Anaerobic. Procedure Abnormality Status --------- ------ Abscess/Wound Aspirate C...[[id number]] Abnormal Final result Anaerobic Culture[[id number]] Final result Please view results for these tests on the individual orders. Anaerobic Culture [[id number]] Collected: 09/26/24 1650 Lab Status: Final result Specimen: Abscess from Groin, Left Updated: 09/30/24 1551 Anaerobic Culture No anaerobic organisms isolated Abscess/Wound Aspirate Culture, Aerobic & Anaerobic [[id number]] (Abnormal) Collected: 09/26/24 1702 Lab Status: Final result Specimen: Abscess from Knee, Left Updated: 09/30/24 1551 Narrative: The following orders were created for panel order Abscess/Wound Aspirate Culture, Aerobic & Anaerobic. Procedure Abnormality Status --------- ------ Abscess/Wound Aspirate C...[[id number]] Abnormal Final result Anaerobic Culture[[id number]] Final result Please view results for these tests on the individual orders. Anaerobic Culture [[id number]] Collected: 09/26/24 1702 Lab Status: Final result Specimen: Abscess from Knee, Left Updated: 09/30/24 1551 Anaerobic Culture No anaerobic organisms isolated Sonicated Tissue/Implant Culture [[id number]] (Abnormal) Collected: 09/26/24 1716 Lab Status: Final result Specimen: Vascular Graft from Leg, Left Updated: 09/30/24 1349 Sonicated Tissue/Implant Culture Methicillin Resistant Staphylococcus aureus Comment: isolated from broth culture. Susceptibilities previously reported. Abscess/Wound Aspirate Culture, Aerobic Only [[id number]] (Abnormal) (Susceptibility) Collected: 09/26/24 1702 Lab Status: [...] to doxycycline. Abscess/Wound Aspirate Culture, Aerobic Only [[id number]] (Abnormal) (Susceptibility) Collected: 09/26/24 1650 Lab Status: [...] 2nd toe amputation who was transferred from [facility] given concern for infected left fem-BK popliteal PTFE bypass. He is now s/p an explantof an infected left femoral-below knee popliteal artery bypass graft (09/26), I/D groin abscess (), L GSV harvest, vein patch angioplasty, L ANESTHESIOLOGY TECH and BK pop w/ sartorius flap L [...] 81mg daily Benjamin Iniguez MD 10/06/2024 Pager: [phone] * Benjamin Iniguez MD - 10/05/2024 7:42 AM EST Images from the original note were not included. Vascular Surgery Progress Note Geovanna Dixon Jr. is a 49 y.o. 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 He presented to [facility] on 09/26 and went to the OR [...] Procedure Component Value - Date/Time Blood culture [[id number]] Collected: 09/29/242123 Lab Status: Final result Specimen: Blood, Venous Updated: 10/04/24 2301 Blood Culture No growth at 120 hours Blood culture [[id number]] Collected: 09/29/242123 Lab Status: Final result Specimen: Blood, Venous Updated: 10/04/24 2301 Blood Culture No growth at 120 hours AFB culture [[id number]] Collected: 09/26/24 1702 Lab Status: Preliminary result Specimen: Abscess from Knee, Left Updated: 10/04/24 1201 Acid Fast Bacilli Culture No acid fast bacilli isolated at 1 week. Acid Fast Stain No acid fast bacilli seen Blood culture [[id number]] Collected: 09/28/24 1749 Lab Status: Final result Specimen: Blood, Venous Updated: 10/03/24 1901 Blood Culture No growth at 120 hours Blood culture [[id number]] (Abnormal) Collected: 09/27/24 2133 Lab Status: Final result Specimen: Blood, Venous Updated: 10/02/24 0804 Blood Culture Methicillin Resistant Staphylococcus aureus Comment: Susceptibilities previously reported. Gram Stain Aerobic Bottle: Gram positive cocci in clusters Tissue Culture, Aerobic & Anaerobic [[id number]] Collected: 09/27/24 1654 Lab Status: Final result Specimen: Tissue from Thigh, Left Updated: 10/01/24 1554 Narrative: The following orders were created for panel order Tissue Culture, Aerobic & Anaerobic. Procedure Abnormality Status --------- ------ Tissue Culture, Aerobic ...[[id number]] Anaerobic Culture[[id number]] Final result Please view results for these tests on the individual orders. Anaerobic Culture [[id number]] Collected: 09/27/24 165 Lab Status: Final result Specimen: Tissue from Thigh, Left Updated: 10/01/24 1554 Anaerobic Culture No anaerobic organisms isolated Tissue Culture, Aerobic Only [[id number]] (Abnormal) (Susceptibility) Collected: 09/27/24 165 Lab Status: [...] is considered susceptible to doxycycline. Blood culture [[id number]] (Abnormal) (Susceptibility) Collected: 09/26/24 1422 Lab Status: Final result Specimen: Blood, Venous Updated: 10/01/24 0658 Blood Culture Methicillin Resistant Staphylococcus aureus Comment: detected by PCR Isolate saved. If future testing is required, contact the Microbiology Calciner Operator. Gram Stain Aerobic Bottle: Gram positive cocci in clusters Susceptibility Methicillin Resistant Staphylococcus aureus VITEK 2 METHOD Clindamycin Resistant Gentamicin Susceptible [1] Linezolid Susceptible Oxacillin Resistant Trimethoprim/Sulfa Susceptible Vancomycin Susceptible [1] Gentamicin is not appropriate for monotherapy for gram-positive infections. Blood culture [[id number]] (Abnormal) Collected: 09/26/24 1845 Lab Status: Final result Specimen: Blood, Venous Updated: 10/01/24 0658 Blood Culture Methicillin Resistant Staphylococcus aureus Comment: isolated. Susceptibilities previously reported. Gram Stain Aerobic Bottle: Gram positive cocci in clusters Abscess/Wound Aspirate Culture, Aerobic & Anaerobic [[id number]] (Abnormal) Collected: 09/26/24 1650 Lab Status: Final result Specimen: Abscess from Groin, Left Updated: 09/30/24 1551 Narrative: The following orders were created for panel order Abscess/Wound Aspirate Culture, Aerobic & Anaerobic. Procedure Abnormality Status --------- ------ Abscess/Wound Aspirate C...[[id number]] Abnormal Final result Anaerobic Culture[[id number]] Final result Please view results for these tests on the individual orders. Anaerobic Culture [[id number]] Collected: 09/26/24 1650 Lab Status: Final result Specimen: Abscess from Groin, Left Updated: 09/30/24 1551 Anaerobic Culture No anaerobic organisms isolated Abscess/Wound Aspirate Culture, Aerobic & Anaerobic [[id number]] (Abnormal) Collected: 09/26/24 1702 Lab Status: Final result Specimen: Abscess from Knee, Left Updated: 09/30/24 1551 Narrative: The following orders were created for panel order Abscess/Wound Aspirate Culture, Aerobic & Anaerobic. Procedure Abnormality Status --------- ------ Abscess/Wound Aspirate C...[[id number]] Abnormal Final result Anaerobic Culture[[id number]] Final result Please view results for these tests on the individual orders. Anaerobic Culture [[id number]] Collected: 09/26/24 1702 Lab Status: Final result Specimen: Abscess from Knee, Left Updated: 09/30/24 1551 Anaerobic Culture No anaerobic organisms isolated Sonicated Tissue/Implant Culture [[id number]] (Abnormal) Collected: 09/26/24 1716 Lab Status: Final result Specimen: Vascular Graft from Leg, Left Updated: 09/30/24 1349 Sonicated Tissue/Implant Culture Methicillin Resistant Staphylococcus aureus Comment: isolated from broth culture. Susceptibilities previously reported. Abscess/Wound Aspirate Culture, Aerobic Only [[id number]] (Abnormal) (Susceptibility) Collected: 09/26/24 1702 Lab Status: [...] to doxycycline. Abscess/Wound Aspirate Culture, Aerobic Only [[id number]] (Abnormal) (Susceptibility) Collected: 09/26/24 165 Lab Status: [...] is considered susceptible to doxycycline. AFB culture [[id number]] Collected: 09/27/241653 Lab Status: Preliminary result Specimen: Tissue from Thigh, Left Updated: 09/29/24 1201 Acid Fast Bacilli Culture No acid fast bacilli isolated to date. Acid Fast Stain No acid fast bacilli seen Fungus culture [[id number]] Collected: 09/27/241653 Lab Status: Preliminary result Specimen: [...] 2nd toe amputation who was transferred from [facility] given concern for infected left fem-BK popliteal PTFE bypass. He is now s/p an explantof an infected left femoral-below knee popliteal artery bypass graft (09/26), I/D groin abscess (), L GSV harvest, vein patch angioplasty, L ANESTHESIOLOGY TECH and BK pop w/ sartorius flap L [...] 81mg daily Benjamin Iniguez MD 10/05/2024 Pager: [phone] Associated attestation - Hayley Torres MD - [...] aspirate- MRSA Antimicrobials: Vancomycin- Imaging/diagnostics: CT lower gndctyglw02/20 IMPRESSION: 1. Interval explant of LEFT femoral [...] male who underwent a left lower extremity sqkfwyq-ik-wjvvp-kneepopliteal artery bypass on August 01, 2024, and [...] concerns. Please page ID John whitehead (pager [phone]) with questions or concerns. Lynne Leavitt MD Fellow, Infectious Disease Pager: [phone] Epic Chat 10/02/2024 This note was created using [employer] voice recognition software. Associated attestation - Amaya [...] Procedure Component Value - Date/Time Blood culture [[id number]] Collected: 09/29/242123 Lab Status: Final result Specimen: Blood, Venous Updated: 11/27/24 2301 Blood Culture No growth at 120 hours Blood culture [[id number]] Collected: 09/29/242123 Lab Status: Final result Specimen: Blood, Venous Updated: 10/04/24 2301 Blood Culture No growth at 120 hours AFB culture [[id number]] Collected: 09/26/24 1702 Lab Status: Preliminary result Specimen: Abscess from Knee, Left Updated: 10/04/24 1201 Acid Fast Bacilli Culture No acid fast bacilli isolated at 1 week. Acid Fast Stain No acid fast bacilli seen Blood culture [[id number]] Collected: 09/28/24 1749 Lab Status: Final result Specimen: Blood, Venous Updated: 10/03/24 1901 Blood Culture No growth at 120 hours Blood culture [[id number]] (Abnormal) Collected: 09/27/242132 Lab Status: Final result Specimen: Blood, Venous Updated: 10/02/24 0804 Blood Culture Methicillin Resistant Staphylococcus aureus Comment: Susceptibilities previously reported. Gram Stain Aerobic Bottle: Gram positive cocci in clusters Tissue Culture, Aerobic & Anaerobic [[id number]] Collected: 09/27/241653 Lab Status: Final result Specimen: Tissue from Thigh, Left Updated: 10/01/24 1554 Narrative: The following orders were created for panel order Tissue Culture, Aerobic & Anaerobic. Procedure Abnormality Status --------- ------ Tissue Culture, Aerobic ...[[id number]] Anaerobic Culture[[id number]] Final result Please view results for these tests on the individual orders. Anaerobic Culture [[id number]] Collected: 09/27/241653 Lab Status: Final result Specimen: Tissue from Thigh, Left Updated: 10/01/24 1554 Anaerobic Culture No anaerobic organisms isolated Tissue Culture, Aerobic Only [[id number]] (Abnormal) (Susceptibility) Collected: 09/27/241653 Lab Status: Final [...] is considered susceptible to doxycycline. Blood culture [[id number]] (Abnormal) (Susceptibility) Collected: 09/26/24 1422 Lab Status: Final result Specimen: Blood, Venous Updated: 10/01/24 0658 Blood Culture Methicillin Resistant Staphylococcus aureus Comment: detected by PCR Isolate saved. If future testing is required, contact the Microbiology Calciner Operator. Gram Stain Aerobic Bottle: Gram positive cocci in clusters Susceptibility Methicillin Resistant Staphylococcus aureus VITEK 2 METHOD Clindamycin >=8.0 ug/ml Resistant Gentamicin <=0.5 ug/ml Susceptible [1] Linezolid 2.0 ug/ml Susceptible Oxacillin >=4.0 ug/ml Resistant Trimethoprim/Sulfa <=10.0 ug/ml Susceptible Vancomycin 1.0 ug/ml Susceptible [1] Gentamicin is not appropriate for monotherapy for gram-positive infections. Blood culture [[id number]] (Abnormal) Collected: 09/26/24 1845 Lab Status: Final result Specimen: Blood, Venous Updated: 10/01/24 0658 Blood Culture Methicillin Resistant Staphylococcus aureus Comment: isolated. Susceptibilities previously reported. Gram Stain Aerobic Bottle: Gram positive cocci in clusters Abscess/Wound Aspirate Culture, Aerobic & Anaerobic [[id number]] (Abnormal) Collected: 09/26/24 1650 Lab Status: Final result Specimen: Abscess from Groin, Left Updated: 09/30/24 1551 Narrative: The following orders were created for panel order Abscess/Wound Aspirate Culture, Aerobic & Anaerobic. Procedure Abnormality Status --------- ------ Abscess/Wound Aspirate C...[[id number]] Abnormal Final result Anaerobic Culture[[id number]] Final result Please view results for these tests on the individual orders. Anaerobic Culture [[id number]] Collected: 09/26/24 1650 Lab Status: Final result Specimen: Abscess from Groin, Left Updated: 09/30/24 1551 Anaerobic Culture No anaerobic organisms isolated Abscess/Wound Aspirate Culture, Aerobic & Anaerobic [[id number]] (Abnormal) Collected: 09/26/24 1702 Lab Status: Final result Specimen: Abscess from Knee, Left Updated: 09/30/24 1551 Narrative: The following orders were created for panel order Abscess/Wound Aspirate Culture, Aerobic & Anaerobic. Procedure Abnormality Status --------- ------ Abscess/Wound Aspirate C...[[id number]] Abnormal Final result Anaerobic Culture[[id number]] Final result Please view results for these tests on the individual orders. Anaerobic Culture [[id number]] Collected: 09/26/24 170 Lab Status: Final result Specimen: Abscess from Knee, Left Updated: 09/30/24 1551 Anaerobic Culture No anaerobic organisms isolated Sonicated Tissue/Implant Culture [[id number]] (Abnormal) Collected: 09/26/24 1716 Lab Status: Final result Specimen: Vascular Graft from Leg, Left Updated: 09/30/24 1349 Sonicated Tissue/Implant Culture Methicillin Resistant Staphylococcus aureus Comment: isolated from broth culture. Susceptibilities previously reported. Abscess/Wound Aspirate Culture, Aerobic Only [[id number]] (Abnormal) (Susceptibility) Collected: 09/26/24 170 Lab Status: [...] to doxycycline. Abscess/Wound Aspirate Culture, Aerobic Only [[id number]] (Abnormal) (Susceptibility) Collected: 09/26/24 1650 Lab Status: [...] is considered susceptible to doxycycline. AFB culture [[id number]] Collected: 09/27/241653 Lab Status: Preliminary result Specimen: Tissue from Thigh, Left Updated: 09/29/24 1201 Acid Fast Bacilli Culture No acid fast bacilli isolated to date. Acid Fast Stain No acid fast bacilli seen Fungus culture [[id number]] Collected: 09/27/241653 Lab Status: Preliminary result Specimen: [...] for consulting infectious diseases. Amaya Hernandez MD, [facility] Infectious Diseases Staff Physician * Vibha [...] Diet NPO Monitoring: Q4 Fawn Cunningham APRN [facility] Endocrinology Diabetes Management Pager [phone] Weekends please page [phone] minutes were spent over the course [...] 2nd toe amputation who was transferred from [facility] given concern for infected left fem-BK popliteal [...] smoking 1 week ago. He presented to [facility] on 09/26 and went to the OR [...] Procedure Component Value - Date/Time Blood culture [[id number]] Collected: 09/29/242123 Lab Status: Preliminary result Specimen: Blood, Venous Updated: 10/03/24 230 Blood Culture No growth at 96 hours Blood culture [[id number]] Collected: 09/29/242123 Lab Status: Preliminary result Specimen: Blood, Venous Updated: 10/03/24 230 Blood Culture No growth at 96 hours Blood culture [[id number]] Collected: 09/28/24 1749 Lab Status: Final result Specimen: Blood, Venous Updated: 10/03/24 1901 Blood Culture No growth at 120 hours Blood culture [[id number]] (Abnormal) Collected: 09/27/242132 Lab Status: Final result Specimen: Blood, Venous Updated: 10/02/24 0804 Blood Culture Methicillin Resistant Staphylococcus aureus Comment: Susceptibilities previously reported. Gram Stain Aerobic Bottle: Gram positive cocci in clusters Tissue Culture, Aerobic & Anaerobic [[id number]] Collected: 09/27/241653 Lab Status: Final result Specimen: Tissue from Thigh, Left Updated: 10/01/24 155 Narrative: The following orders were created for panel order Tissue Culture, Aerobic & Anaerobic. Procedure Abnormality Status --------- ------ Tissue Culture, Aerobic ...[[id number]] Anaerobic Culture[[id number]] Final result Please view results for these tests on the individual orders. Anaerobic Culture [[id number]] Collected: 09/27/241653 Lab Status: Final result Specimen: Tissue from Thigh, Left Updated: 10/01/24 1554 Anaerobic Culture No anaerobic organisms isolated Tissue Culture, Aerobic Only [[id number]] (Abnormal) (Susceptibility) Collected: 09/27/24 1654 Lab Status: [...] is considered susceptible to doxycycline. Blood culture [[id number]] (Abnormal) (Susceptibility) Collected: 09/26/24 1422 Lab Status: Final result Specimen: Blood, Venous Updated: 10/01/24 0658 Blood Culture Methicillin Resistant Staphylococcus aureus Comment: detected by PCR Isolate saved. If future testing is required, contact the Microbiology Calciner Operator. Gram Stain Aerobic Bottle: Gram positive cocci in clusters Susceptibility Methicillin Resistant Staphylococcus aureus VITEK 2 METHOD Clindamycin Resistant Gentamicin Susceptible [1] Linezolid Susceptible Oxacillin Resistant Trimethoprim/Sulfa Susceptible Vancomycin Susceptible [1] Gentamicin is not appropriate for monotherapy for gram-positive infections. Blood culture [[id number]] (Abnormal) Collected: 09/26/24 1845 Lab Status: Final result Specimen: Blood, Venous Updated: 10/01/24 0658 Blood Culture Methicillin Resistant Staphylococcus aureus Comment: isolated. Susceptibilities previously reported. Gram Stain Aerobic Bottle: Gram positive cocci in clusters Abscess/Wound Aspirate Culture, Aerobic & Anaerobic [[id number]] (Abnormal) Collected: 09/26/24 165 Lab Status: Final result Specimen: Abscess from Groin, Left Updated: 09/30/24 1551 Narrative: The following orders were created for panel order Abscess/Wound Aspirate Culture, Aerobic & Anaerobic. Procedure Abnormality Status --------- ------ Abscess/Wound Aspirate C...[[id number]] Abnormal Final result Anaerobic Culture[[id number]] Final result Please view results for these tests on the individual orders. Anaerobic Culture [[id number]] Collected: 09/26/241649 Lab Status: Final result Specimen: Abscess from Groin, Left Updated: 09/30/24 1551 Anaerobic Culture No anaerobic organisms isolated Abscess/Wound Aspirate Culture, Aerobic & Anaerobic [[id number]] (Abnormal) Collected: 09/26/24 1702 Lab Status: Final result Specimen: Abscess from Knee, Left Updated: 09/30/24 1551 Narrative: The following orders were created for panel order Abscess/Wound Aspirate Culture, Aerobic & Anaerobic. Procedure Abnormality Status --------- ------ Abscess/Wound Aspirate C...[[id number]] Abnormal Final result Anaerobic Culture[[id number]] Final result Please view results for these tests on the individual orders. Anaerobic Culture [[id number]] Collected: 09/26/24 1702 Lab Status: Final result Specimen: Abscess from Knee, Left Updated: 09/30/24 1551 Anaerobic Culture No anaerobic organisms isolated Sonicated Tissue/Implant Culture [[id number]] (Abnormal) Collected: 09/26/24 1716 Lab Status: Final result Specimen: Vascular Graft from Leg, Left Updated: 09/30/24 1349 Sonicated Tissue/Implant Culture Methicillin Resistant Staphylococcus aureus Comment: isolated from broth culture. Susceptibilities previously reported. Abscess/Wound Aspirate Culture, Aerobic Only [[id number]] (Abnormal) (Susceptibility) Collected: 09/26/24 1702 Lab Status: [...] to doxycycline. Abscess/Wound Aspirate Culture, Aerobic Only [[id number]] (Abnormal) (Susceptibility) Collected: 09/26/24 1650 Lab Status: [...] is considered susceptible to doxycycline. AFB culture [[id number]] Collected: 09/27/24 1654 Lab Status: Preliminary result Specimen: Tissue from Thigh, Left Updated: 09/29/24 1201 Acid Fast Bacilli Culture No acid fast bacilli isolated to date. Acid Fast Stain No acid fast bacilli seen AFB culture [[id number]] Collected: 09/26/24 1702 Lab Status: Preliminary result Specimen: Abscess from Knee, Left Updated: 09/29/24 1201 Acid Fast Bacilli Culture No acid fast bacilli isolated to date. Acid Fast Stain No acid fast bacilli seen Fungus culture [[id number]] Collected: 09/27/24 1654 Lab Status: Preliminary result Specimen: Tissue from Thigh, Left Updated: 09/28/24 0748 Fungus Culture No fungus isolated to date MRSA PCR Screen [[id number]] (Abnormal) Collected: 09/27/24 0751 Lab Status: Final result Specimen: Swab from Nares Updated: 09/27/24 1156 MRSA PCR Detected Narrative: This test was performed using the Xpert MRSA NxG test kit and is run on the [employer] [facility]. This test is cleared by the [place]. Food and Drug Administration for clinical use and its performance characteristics have been verified by the [facility] at [facility]. New Studies: - None Assessment & Plan: Geovanna Dixon Jr. is a 49 y.o. male with a history of HTN, HLD, NSTEMI, CAD s/p CABG (12/2011), DM,obesity, PAD s/p L iliofem endart and L fem-BK pop bypass and L 2nd toe amputation who was transferred from [facility] given concern for infected left fem-BK popliteal PTFE bypass. He is now s/p an explantof an infected left femoral-below knee popliteal artery bypass graft (09/26), I/D groin abscess (), L GSV harvest, vein patch angioplasty, L ANESTHESIOLOGY TECH and BK pop w/ sartorius flap L [...] 81mg daily Benjamin Iniguez MD 10/04/2024 Pager: [phone] Associated attestation - Hayley Torres MD - [...] was scheduled for a f/u nutrition evaluation. Balance Wheel Screw Hole Tapper met pt at bedside. Pt sharedthat his [...] nausea and no vomiting Last Bowel Movement: (PRODUCTION ESTIMATOR- MD made aware) Patient education / questions: all nutrition related questions answered at this time Nutrition services to follow weekly through hospital course unless consulted in the interim. Linda Bates Coconut Boiler * Jessica Renae, PT - 10/03/2024 11:30 AM EST Physical Therapy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 [[id number]] Collected: 09/26/241649 Lab Status: Preliminary result Specimen: Abscess from Groin, Left Updated: 09/27/24 0727 Fungus Culture No fungus isolated to date Fungus culture [[id number]] Collected: 09/26/24 1702 Lab Status: Preliminary result [...] 2nd toe amputation who was transferred from [facility] given concern for infected left fem-BK popliteal PTFE bypass. He is now s/p an explantof an infected left femoral-below knee popliteal artery bypass graft (09/26), I/D groin abscess (), L GSV harvest, vein patch angioplasty, L ANESTHESIOLOGY TECH and BK pop w/ sartorius flap L fem, I/D, 09/29 L sartorius flap revision, vac change. 10/01/24: Tolerated gentle irrigation with saline at BSD today with clear to mildly serosang drainage - no purulence or malodor noted and patient tolerated well. Will plan for NPO at [place] for return [place] tomorrow. Hypertensive overnight, home [...] - ISS - diet today; NPO at [place] for OR Tuesday 10/02 Anticoagulation: SQH TID Antiplatelet: ASA 81 María Carranza APRN 10/01/2024 Pager: [phone] * Karolyn Hudson MD - 09/30/2024 11:21 AM EST Images from the original note were not included. Vascular Surgery Progress Note Patient ID Geovanna Dixon Jr. is a 49 y.o. 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 He presented to [facility] on 09/26 and went to the OR [...] Procedure Component Value - Date/Time Blood culture [[id number]] (Abnormal) Collected: 09/27/24 2133 Lab Status: Preliminary result Specimen: Blood, Venous Updated: 09/30/24 0718 Blood Culture Methicillin Resistant Staphylococcus aureus Comment: Susceptibilities previously reported. Gram Stain Aerobic Bottle: Gram positive cocci in clusters Blood culture [[id number]] Collected: 09/28/24 1749 Lab Status: Preliminary result Specimen: Blood, Venous Updated: 09/29/24 1901 Blood Culture No Growth at 18-24 hrs. AFB culture [[id number]] Collected: 09/27/24 1654 Lab Status: Preliminary result Specimen: Tissue from Thigh, Left Updated: 09/29/24 1201 Acid Fast Bacilli Culture No acid fast bacilli isolated to date. Acid Fast Stain No acid fast bacilli seen AFB culture [[id number]] Collected: 09/26/24 1702 Lab Status: Preliminary result Specimen: Abscess from Knee, Left Updated: 09/29/24 1201 Acid Fast Bacilli Culture No acid fast bacilli isolated to date. Acid Fast Stain No acid fast bacilli seen Sonicated Tissue/Implant Culture [[id number]] (Abnormal) Collected: 09/26/24 1716 Lab Status: Preliminary result Specimen: Vascular Graft from Leg, Left Updated: 09/29/24 1132 Sonicated Tissue/Implant Culture Methicillin Resistant Staphylococcus aureus Comment: isolated from broth culture. Susceptibilities previously reported. Tissue Culture, Aerobic Only [[id number]] (Abnormal) (Susceptibility) Collected: 09/27/24 1654 Lab Status: [...] is considered susceptible to doxycycline. Blood culture [[id number]] (Abnormal) Collected: 09/26/24 1845 Lab Status: Preliminary result Specimen: Blood, Venous Updated: 09/29/24 0719 Blood Culture Methicillin Resistant Staphylococcus aureus Comment: isolated. Susceptibilities previously reported. Gram Stain Aerobic Bottle: Gram positive cocci in clusters Blood culture [[id number]] (Abnormal) (Susceptibility) Collected: 09/26/24 1422 Lab Status: Preliminary result Specimen: Blood, Venous Updated: 09/29/24 0717 Blood Culture Methicillin Resistant Staphylococcus aureus Comment: detected by PCR Isolate saved. If future testing is required, contact the Microbiology Calciner Operator. Gram Stain Aerobic Bottle: Gram positive cocci in clusters Susceptibility Methicillin Resistant Staphylococcus aureus VITEK 2 METHOD Clindamycin Resistant Gentamicin Susceptible [1] Linezolid Susceptible Oxacillin Resistant Trimethoprim/Sulfa Susceptible Vancomycin Susceptible [1] Gentamicin is not appropriate for monotherapy for gram-positive infections. Anaerobic Culture [[id number]] Collected: 09/27/24 1654 Lab Status: Preliminary result Specimen: Tissue from Thigh, Left Updated: 09/28/24 1355 Anaerobic Culture No anaerobic organisms isolated to date Abscess/Wound Aspirate Culture, Aerobic Only [[id number]] (Abnormal) (Susceptibility) Collected: 09/26/24 1702 Lab Status: [...] to doxycycline. Abscess/Wound Aspirate Culture, Aerobic Only [[id number]] (Abnormal) (Susceptibility) Collected: 09/26/24 1650 Lab Status: [...] is considered susceptible to doxycycline. Fungus culture [[id number]] Collected: 09/27/241653 Lab Status: Preliminary result Specimen: Tissue from Thigh, Left Updated: 09/28/24 0748 Fungus Culture No fungus isolated to date MRSA PCR Screen [[id number]] (Abnormal) Collected: 09/27/24 0751 Lab Status: Final result Specimen: Swab from Nares Updated: 09/27/24 1156 MRSA PCR Detected Narrative: This test was performed using the Xpert MRSA NxG test kit and is run on the [employer] Dx System. This test is cleared by the U.S. Food and Drug Administration for clinical use and its performance characteristics have been verified by the Clinical Genomics and Advanced Technology Laboratory at [facility]. Anaerobic Culture [[id number]] Collected: 09/26/241649 Lab Status: Preliminary result Specimen: Abscess from Groin, Left Updated: 09/27/24 1142 Anaerobic Culture No anaerobic organisms isolated to date Anaerobic Culture [[id number]] Collected: 09/26/241701 Lab Status: Preliminary result Specimen: Abscess from Knee, Left Updated: 09/27/24 1142 Anaerobic Culture No anaerobic organisms isolated to date Fungus culture [[id number]] Collected: 09/26/241649 Lab Status: Preliminary result Specimen: Abscess from Groin, Left Updated: 09/27/24 0727 Fungus Culture No fungus isolated to date Fungus culture [[id number]] Collected: 09/26/241701 Lab Status: Preliminary result Specimen: Abscess from Knee, Left Updated: 09/27/24 0727 Fungus Culture No fungus isolated to date New Studies Results for orders placed or performed during the hospital encounter of 09/26/24 Request For 2nd Read CT Lower Extremity (Exam End: 09/26/2024 1:50 PM) Result Value WORKSTATION ID [id number] Impression 1. There is a left femoral [...] who have questions please contact the health manager respiratory care that requested your imaging first. Lower Extremity w Contrast Left (Exam End: 09/27/2024 9:16 AM) Result Value WORKSTATION ID [id number] Impression IMPRESSION: 1. Interval explant of LEFT [...] who have questions please contact the health manager respiratory care that requested your imaging first. 09/28 ABIs [...] 2nd toe amputation who was transferred from [facility] given concern for infected left fem-BK popliteal [...] MD Vascular Surgery 09/30/24 [id number] * Angel Gosnalez MD - 09/30/2024 10:06 AM EST Critical [...] Labs 09/28/24 1516 PHART 7.42 PO2ART 103 [id number] 39 LACTATEART 1.1 BEART 0.2 Is this [...] 1643 PHART 7.42 7.38 PO2ART 103 96 OIP2DEY 39 41 LACTATEART 1.1 1.7 BEART 0.2 [...] Thank you, Renea Nunez, MS, RD, LD, [facility] Clinical Nutrition * Mariya Shi RN [...] MD Vascular Surgery 09/28/24 * Fawn Cunningham, DISH UP PERSON - 09/28/2024 12:02 PM EST Follow Up [...] Diet CC Monitoring: Q4 Fawn Cunningham APRN [facility] Endocrinology Diabetes Management Pager [phone] Weekends please page [phone] 35 minutes were spent over the course [...] Labs 09/26/24 1643 PHART 7.38 PO2ART 96 [id number] 41 LACTATEART 1.7 BEART -1.4 Is this [...] 2nd toe amputation who was transferred from [facility] given concern for infected left fem-BK popliteal [...] smoking 1 week ago. He presented to [facility] on 09/26 and went to the OR [...] Procedure Component Value - Date/Time Fungus culture [[id number]] Collected: 09/27/241653 Lab Status: Preliminary result Specimen: Tissue from Thigh, Left Updated: 09/28/24 0748 Fungus Culture No fungus isolated to date Blood culture [[id number]] (Abnormal) Collected: 09/26/24 1845 Lab Status: Preliminary result Specimen: Blood, Venous Updated: 09/28/24 0711 Blood Culture Methicillin Resistant Staphylococcus aureus Comment: isolated. Susceptibility testing in progress. Gram Stain Aerobic Bottle: Gram positive cocci in clusters AFB culture [[id number]] Collected: 09/26/24 1702 Lab Status: Preliminary result Specimen: Abscess from Knee, Left Updated: 09/27/24 2335 Acid Fast Stain No acid fast bacilli seen Tissue Culture, Aerobic Only [[id number]] Collected: 09/27/24 165 Lab Status: Preliminary result Specimen: Tissue from Thigh, Left Updated: 09/27/24 1810 Gram Stain Few Neutrophils seen No microorganisms seen Abscess/Wound Aspirate Culture, Aerobic Only [[id number]] (Abnormal) Collected: 09/26/24 170 Lab Status: Preliminary result Specimen: Abscess from Knee, Left Updated: 09/27/24 1520 Abscess/Wound Aspirate Culture Many Staphylococcus aureus Gram Stain Many neutrophils Many Gram positive cocci Abscess/Wound Aspirate Culture, Aerobic Only [[id number]] (Abnormal) Collected: 09/26/241649 Lab Status: Preliminary result Specimen: Abscess from Groin, Left Updated: 09/27/24 1519 Abscess/Wound Aspirate Culture Many Staphylococcus aureus Gram Stain Many neutrophils Many Gram positive cocci Blood culture [[id number]] (Abnormal) Collected: 09/26/24 1422 Lab Status: Preliminary result Specimen: Blood, Venous Updated: 09/27/24 1320 Blood Culture Methicillin Resistant Staphylococcus aureus Comment: detected by PCR Gram Stain Aerobic Bottle: Gram positive cocci in clusters MRSA PCR Screen [[id number]] (Abnormal) Collected: 09/27/24 0751 Lab Status: Final result Specimen: Swab from Nares Updated: 09/27/24 1156 MRSA PCR Detected Narrative: This test was performed using the Xpert MRSA NxG test kit and is run on the [employer] Dx System. This test is cleared by the U.S. Food and Drug Administration for clinical use and its performance characteristics have been verified by the Clinical Genomics and Advanced Technology Laboratory at [facility]. Anaerobic Culture [[id number]] Collected: 09/26/241649 Lab Status: Preliminary result Specimen: Abscess from Groin, Left Updated: 09/27/24 1142 Anaerobic Culture No anaerobic organisms isolated to date Anaerobic Culture [[id number]] Collected: 09/26/241701 Lab Status: Preliminary result Specimen: Abscess from Knee, Left Updated: 09/27/24 1142 Anaerobic Culture No anaerobic organisms isolated to date Fungus culture [[id number]] Collected: 09/26/241649 Lab Status: Preliminary result Specimen: Abscess from Groin, Left Updated: 09/27/24 0727 Fungus Culture No fungus isolated to date Fungus culture [[id number]] Collected: 09/26/241701 Lab Status: Preliminary result Specimen: Abscess from Knee, Left Updated: 09/27/24 0727 Fungus Culture No fungus isolated to date New Studies Results for orders placed or performed during the hospital encounter of 09/26/24 Request For 2nd Read CT Lower Extremity (Exam End: 09/26/2024 1:50 PM) Result Value WORKSTATION ID [id number] Impression 1. There is a left femoral [...] who have questions please contact the health manager respiratory care that requested your imaging first. Lower Extremity w Contrast Left (Exam End: 09/27/2024 9:16 AM) Result Value WORKSTATION ID [id number] Impression IMPRESSION: 1. Interval explant of LEFT [...] who have questions please contact the health manager respiratory care that requested your imaging first. Assessment & Plan Geovanna Dixon Jr. is a 49 y.o. male with a history of HTN, HLD, NSTEMI, CAD s/p CABG (12/2011), DM,obesity, PAD s/p L iliofem endart and L fem-BK pop bypass and L 2nd toe amputation who was transferred from [facility] given concern for infected left fem-BK popliteal [...] Superior part of dressing taken down. [address]. Abd pads with serosanguinous [...] Kita Hodge - 09/27/2024 3:58 PM EST Winder Operator Encounter Note Patient Name: Geovanna Dixon Jr. : [id number] MR#: [id number] Admit Date: 09/26/2024 2:08 PM Hospital Day 1 day Narrative: Provider Network Mgr initiated visit with patient during rounds on the unit. Patient indicated that he was not samaritan. He reported that he was in less [...] Labs 09/26/24 1643 PHART 7.38 PO2ART 96 VCZ4HHP 41 LACTATEART 1.7 BEART -1.4 Is this [...] 2nd toe amputation who was transferred from [facility] given concern for infected left fem-BK popliteal [...] smoking 1 week ago. He presented to [facility] on 09/26 and went to the OR [...] 2nd toe amputation who was transferred from [facility] given concern for infected left fem-BK popliteal PTFE bypass. He is now s/p an explantof an infected left femoral-below knee popliteal artery bypass graft. Significant purulence under pr essure was seen intraoperatively, surrounding the entire bypass at proximal and distal anastomoses as well as the tunnel. There are retained grafts left at proximal and distal anastomoses, and a Manito drain placed from left groin to left [...] graft associated infection. The patient presented to [facility] ED on 09/26 for evaluation of increasing [...] remained hemodynamically stable during his time at [facility] and was transported by ground to [facility] for vascular surgery consultation. Patient was admitted [...] 3.51) performed by Thony Garcia MD at [facility] MAIN OR PRO BYPASS GRAFT OTHR, FEM-TIBIAL Left 08/01/2024 @BYPASS GRAFT, FEM-ANT TIBIAL, -POST TIBIAL, -PERONEAL, -DP W\ SYNTHETIC CONDUIT (WRVU 23.66) performed by Lisette Maldonado MD at [facility] MAIN OR PRO CABG, ARTERY-VEIN, SINGLE 01/04/2012 @CABG, VENOUS & ARTERIAL GRAFT;SINGLE VEIN GRAFT performed by INNA TOVAR at [facility] MAIN OR PRO ENDOSCOPY W/VIDEO-ASST VEIN HARVEST, CABG 01/04/2012 ENDOSCOPIC HARVEST VEIN(S) FOR CABG performed by INNA TOVAR at [facility] MAIN OR VS ARTERIOGRAM LOWER EXTREMITY VASCULAR SURGERY 07/20/2024 VS Arteriogram Lower Extremity Vascular Surgery 07/20/2024 Anabel Finney MD [facility] INTERVENTIONL RAD Prior To Admission Medications: [...] 200 - 393 mg/dL Type and screen ([facility]/CGP/BABITA) Result Value Ref Range ABORH Type A POSITIVE PATIENT HISTORY Found Expires at 0375 on: 09/29/2024 ANTIBODY SCREEN AUTOMATED Negative T&S only valid at [facility] LAB CBC (with Diff) Result Value Ref [...] 09/26/2024 1:50 PM) Result Value WORKSTATION ID [id number] Impression 1. There is a left femoral [...] who have questions please contact the health manager respiratory care that requested your imaging first. Assessment/Plan: Geovanna [...] to the planned procedure. Hand Hygiene: The information delivery analyst did perform hand hygiene prior to line insertion. Catheter type: PICC Lot number: [id number] Procedure Technique: Skin was prepped with chlorhexidine. [...] to the planned procedure. Hand Hygiene: The information delivery analyst did perform hand hygiene prior to line insertion. Catheter type: PICC Lot number: [id number] Procedure Technique: Skin was prepped with chlorhexidine. [...] Miscellaneous Notes * Plan of Care - Teerll Araiza RN - 10/10/2024 5:08 PM EST [...] Outcome: Outcome (s) achieved 10/10/20241330 by Terell rAaiza RN Outcome: Ongoing (Interventions Implemented as Appropriate) [...] Outcome: Outcome (s) achieved 10/10/2024 1331 by Terlel Araiza RN Outcome: Ongoing (Interventions Implemented as [...] abx and wound vac. [facility] with[facility] at 10am. Confirmed VNA visit. Delivery confirmed for tomorrow afternoon. Home Vac: I have called [facility] Inventory and they they have now delivered the home ActiVac serial # [id number]. Pt reviewed the [facility] ActiVac Proof of Delivery/Assignment of Benefits (POD/AOB)form and signed it; she has copy of this and the [facility] Patient Copy letter along with the supplies, I will fax copy of the POD/AOB to [facility]. Needs for Transition of Care: Plan for discharge is: Home w/ Services Outpatient Agency/Support Group Needs: Homecare agency Outpatient IV Medications - IV Access: Access Ordered Location: Home, Referred to [facility] Coordination, Referred to [facility] Home Health Services: Occupational Therapy, Physical Therapy, Registered Nurse Agency Referrals & Follow-up Care: Contact information [facility] [place] [address] [place] [address] Transportation: family or friend will provide Functional status prior to admission: Independent Home Environment: Others in the home: sibling(s), other (see comments) (lives with his sister delmy and brother in law). Current Living Arrangements: home/apartment/condo. Accessibility Concerns: . Current Functional Ability: Assistive Person and Equipment DME used at home: none Other DME Needs: Wound Vac Provider: [facility] Patient is insured through: Primary Insurance: [employer] MANAGED MEDICARE Payor: [employer] MA[employer]ED MEDICARE / Plan: [employer] MA[employer]ED MEDICARE PPO / Product Type: *No [...] Pain Flowsheets Taken 10/09/20242022 Pain Management Interventions: spdifu-prx-gajuv dosing utilized care clustered diversional activity provided [...] from the original note were not included. [facility] [place] [address] [facility] Vascular Access Service Peripherally Inserted Central Catheter (PICC) Teaching Sheet Peripherally inserted central catheters (jkyz-nb-orby) (PICC) are used when you need IV [...] midline catheter? PICC lines are used for intermediate treatments. PICC lines may be used [...] can be set up via the nurse Cart Attendant to help you. What are possible complications [...] Efficacy, Safety, Use, and Administration of Cathflo, [employer] 2005 * Care Management - Cristina [...] No Patient is insured through: Primary Insurance: [employer] MANAGED MEDICARE Payor: [employer] MANAGED MEDICARE / Plan: [employer] MANAGED MEDICARE [...] Ordered Location: Home, Referred to [facility] Coordination Home Health Services: Occupational Therapy, Physical Therapy, Registered Nurse- will remove PT, OT Agency [facility]errals[facility] and [facility] for IV [facility]x. [facility] can [...] 9:00 AM EST OFFICE OF CARE MANAGEMENT Cart Attendant Follow-up Note Cristina Turner RN reviewed record and discussed patient with Care Team. Patient had been determined to discharge home with [facility] home vac need. Patient plan of care discussed in multidisciplinary rounds and assessment for continuing care and discharge needs. Diagnosis: Vascular graft infection, initial encounter INSURANCE: Payor: [employer] MANAGED MEDICARE / Plan: [employer] MANAGED MEDICARE PPO / Product Type: *No Product type* / SECONDARY INSURANCE: N/A Discharge date planned for 10/09 if medically ready. Current Referral in place: VNA: [facility] Wound vac ordered in [employer] System for home wound vac and order emailed to: María for signature. Cart Attendant to follow with team and family to [...] where referrals are placed. Request referral to [place], [place] for IV abx or . Expected date of discharge: 10/11. Patient will require teaching. Referral routed to the Data Warehouse Administrator for matching with agency/vendor and to provide [...] care clustered diversional activity provided position adjusted eiszhx-tts-antda dosing utilized pain management plan reviewed with [...] have. Alternately, during off-hours you may call [phone] to contact a pharmacist. * Plan of Care - Jordyn Navas RN - 10/07/2024 7:21 PM EST OUTCOME EVALUATION NOTE: OUTCOME SUMMARY: [facility], Meds/Assessments as charted, [...] PM EST PICC line placed today for intermediate ABX. Neurovascular checks unchanged. Good oral intake [...] as Appropriate) * Plan of Care - Dominiuqe Holman RN - 10/06/2024 2:57 PM EST Images from the original [place] [address] [facility] Vascular Access Service Peripherally Inserted Central Catheter (PICC) Teaching Sheet Peripherally inserted central catheters (ecqf-se-elwg) (PICC) are used when you need IV [...] midline catheter? PICC lines are used for intermediate treatments. PICC lines may be used [...] can be set up via the nurse Cart Attendant to help you. What are possible complications [...] Vascular Access Device Selection, Insertion, and Management, Liquid Access Systems 08/12. A Review of the Efficacy, Safety, Use, and Administration of Cathflo, [employer] 2005 * Care Management - Vibha [...] through: Primary Insurance: [employer] MANAGED MEDICARE Payor: [employer] MANAGED MEDICARE / Plan: [employer] MANAGED MEDICARE [...] of Discharge: 10/10/2024 Vibha Wahl RN-BSN-CM Pager: [phone] * Consult Note - Stormy Muller [facility] - 10/06/2024 9:19 AM EST [facility] Pharmacokinetics Note Drug: Vancomycin Pharmacokinetic target: AUC24 (range) 400-600 mg/L.hr Current regimen: 1250 mg IV every 8 hours Geovanna Dixon is a(n) 49 years old male receiving Vancomycin 1250 mg IV every 8 hours for MRSA bacteremia/graft infection Recent measured serum creatinine values: 10/06/2024 00:03 0.85 mg/dL 10/04/2024 23:50 0.55 mg/dL 10/04/2024 00:08 0.56 mg/dL Assessment: Analysis of the most recent level(s) using [employer] gives the following patient-specific pharmacokinetic parameters: CL: [...] in a steady-state trough of 14.6 mg/L [id number] of 508 mg/L.hr. Recommendations: - SCr has [...] Meeks MD - 10/04/2024 5:01 PM EST [facility] Operative Note Patient Name: Geovanna Dixon : [id number] MR#: [id number] Case Date: 10/04/2024 Surgeon: Surgeons and Role: * Marko Dickson MD - Primary * Cristino Meeks MD - Resident - Assisting Preoperative diagnosis: Status post explant of infected left ANESTHESIOLOGY TECH-BK pop bypass graft Postoperative diagnosis: Status post explant of infected left ANESTHESIOLOGY TECH-BK pop bypass graft Procedure(s) (LRB): DEBRIDEMENT SKIN [...] 2nd toe amputation who was transferred from [facility] given concern for infected left fem-BK popliteal PTFE bypass. He is now s/p an explant of an infected left femoral-below knee popliteal artery bypass graft on 09/26 followed by I/D posterior thigh abscess on 09/27 then left GSV harvest, total explant of remaining PTFE then vein patch angioplasty of the left ANESTHESIOLOGY TECH and BK popliteal artery on 09/28 then [...] Note Patient Name: Geovanna Dixon Jr. : [id number] MR#: [id number] Case Date: 10/04/2024 Surgeon: Surgeons and Role: * Marko Dickson MD - Primary * Cristino Meeks MD - Resident - Assisting Preoperative diagnosis: Status post explant of infected left ANESTHESIOLOGY TECH-BK pop bypass graft Postoperative diagnosis: Status post explant of infected left ANESTHESIOLOGY TECH-BK pop bypass graft Procedure(s) (LRB): DEBRIDEMENT SKIN [...] No Patient is insured through: Primary Insurance: [employer] MANAGED MEDICARE Payor: [employer] MANAGED MEDICARE / Plan: [employer] MANAGED MEDICARE PPO / Product Type: *No [...] Therapy, Physical Therapy, Registered Nurse Agency Referrals: [place] Transportation: family or friend will provide Barriers [...] BIT to reengage please page BIT @ [phone] * Consult Note - Vangie Chandra [facility] - 10/04/2024 10:42 AM EST [facility] Pharmacokinetics Note Drug: Vancomycin Pharmacokinetic target: AUC24 (range) 400-600 mg/L.hr Current regimen: 1500 mg IV every 8 hours Geovanna Dixon is a(n) 49 years old male receiving Vancomycin 1500 mg IV every 8 hours for graft infection Recent measured serum creatinine values: 10/04/2024 00:08 0.56 mg/dL 10/03/2024 00:27 0.51 mg/dL 10/02/2024 00:41 0.49 mg/dL Assessment: Analysis of the most recent level(s) using [employer] gives the following patient-specific pharmacokinetic parameters: CL: [...] L 2nd toe amputationwho was transferred from [facility] given concern for infected left fem-BK popliteal PTFE bypass. He is now s/p an explant of an infected left femoral-below knee popliteal artery bypass graft (09/26), I/D groin abscess (09/27), L GSV harvest, vein patch angioplasty, L ANESTHESIOLOGY TECH and BK pop w/ sartorius flap L fem, I/D, 09/29 L sartorius flap revision, vac change. 10/03/24 NPO at [facility] for OR wound exploration. Wound [...] 3.51) performed by Thony Garcia MD at [facility] MAIN OR PRO BYPASS GRAFT OTHR, FEM-TIBIAL Left 08/01/2024 @BYPASS GRAFT, FEM-ANT TIBIAL, -POST TIBIAL, -PERONEAL, -DP W\ SYNTHETIC CONDUIT (WRVU 23.66) performed by Lisette Maldonado MD at [facility] MAIN OR PRO CABG, ARTERY-VEIN, SINGLE 01/04/2012 @CABG, VENOUS & ARTERIAL GRAFT;SINGLE VEIN GRAFT performed by INNA TOVAR at [facility] MAIN OR PRO DEBRIDEMENT MUSCLE AND FASCIA 20 SQ CM/< Left 09/29/2024 DEBRIDEMENT SKIN, SUBCU, MUSCLE, LOWER EXTREMITY (WRVU 2.7) performed by Anabel Finney MD at [facility] MAIN OR PRO DEBRIDEMENT MUSCLE AND FASCIA 20 SQ CM/< Left 10/02/2024 DEBRIDEMENT SKIN, SUBCU, MUSCLE, LOWER EXTREMITY (WRVU 2.7) performed by Hermila Mccormick MDat [facility] MAIN OR PRO DEBRIDEMENT SUBCUTANEOUS TISSUE 20 SQCM/< Left 09/27/2024 DEBRIDEMENT SKIN AND SUBCU, LOWER EXTREMITY (WRVU 1.01) performed by Hayley Torres MD at [facility] MAIN OR PRO DRAIN LOWER LEG DEEP ABSC/HEMATOMA Left 09/26/2024 INCISION & DRAINAGE, LEG OR ANKLE, DEEP ABSCESS OR HEMATOMA (WRVU 5.23) performed by Hayley Torres MD at [facility] MAIN OR PRO ENDOSCOPY W/VIDEO-ASST VEIN HARVEST, CABG 01/04/2012 ENDOSCOPIC HARVEST VEIN(S) FOR CABG performed by INNA TOVAR at [facility] MAIN OR PRO EXCISION, INFEC GRAFT, EXTREMITY Left 09/26/2024 EXCISION OF INFECTED GRAFT FROM LOWER EXTREMITY (WRVU 9.53) performed by Hayley Torres MD at [facility] MAIN OR PRO EXCISION, INFEC GRAFT, EXTREMITY Left 09/28/2024 EXCISION OF INFECTED GRAFT FROM LOWER EXTREMITY (WRVU 9.53) performed by Hayley Torres MD at [facility] MAIN OR PRO EXPLORATION NOT FOLLOWED BY SURG LOWER EXTREMITY ARTERY Left 09/29/2024 @EXPLORATION W\O SURGICAL REPAIR, FEMORAL ARTERY - JENNIFER (WRVU 7.5) performed by Anabel Finney MD at [facility] MAIN OR PRO FORM SKIN PEDICLE FLAP SCALP, ARM, LEG 09/28/2024 FLAP, PEDICLE,W OR W/O TRANSFER, LEGS (WRVU 10.12) performed by Hayley Torres MD at [facility] MAIN OR PRO I&D DEEP ABSCESS BURSA/HEMATOMA THIGH/KNEE REGION Left 09/26/2024 INCISION & DRAINAGE ABSCESS OR HEMATOMA, THIGH, KNEE SUPERFICIAL (WRVU 6.78) performed by Hayley Torres MD at [facility] MAIN OR PRO REVISION FEMORAL ANAST BPG GROIN OPEN W/NONAUTOG PATCH GRAFT Left 09/28/2024 REV. FEM. ANASTOMOSIS OF SYN. BYPASS GRAFT USING NONAUTOGENOUS PATCH ANGIOPLASTY-JENNIFER (WRVU 23.15) performed by Hayley Torres MD at [facility] MAIN OR PRO UNLISTED PROCEDURE VASCULAR SURGERY Left 09/28/2024 HARVEST SAPHENOUS VEIN (WRVU 13.24) performed by Hayley Torres MD at [facility] MAIN OR VS ARTERIOGRAM LOWER EXTREMITY VASCULAR SURGERY 07/20/2024 VS Arteriogram Lower Extremity Vascular Surgery 07/20/2024 Anabel Finney MD [facility] INTERVENTIONL RAD Social History: Patient lives [...] Pt issued and educated on use of hospice fellow for hospice fellow lower items. Self-feeding: Independent Grooming: Set up [...] Discharge planning Total Minutes, Occupational Therapy: 35 ([phone]) OT Evaluation Code Rationale: Diagnosis & Pertinent Co-Morbidities affecting Plan of Care: see PMHx Occupational Profile & Client History: Brief Expanded Extensive x Assessment of Occupational Performance: 1-3 performance deficits 3-5 performance deficits x 5 + performance deficits Clinical Decision Making: Low Moderate High x Clinical decision making of low complexity using standardized patient assessment instrument and measurable assessment of functional outcome. Pager: [phone] Jorge Goetz OT 10/03/2024 Occupational Therapy Rehabilitation [...] Mccormick MD - 10/02/2024 2:06 PM EST [facility] Operative Note Patient Name: Geovanna Dixon Jr. : [id number] MR#: [id number] Case Date: 10/02/2024 Surgeon: Surgeons and Role: [...] 2nd toe amputation who was transferred from [facility] given concern for infected left fem-BK popliteal [...] the groin, we then attached a 15 Azerbaijani Jose drain to the Yung drain, and remove the Yung drain, replacing it with the 15 Azerbaijani Jose drain. In a similar way we [...] condition. Surgical Infection Prevention Bundle Used? N/A aTto Aguirre MD * Care Management - Penny [...] No Patient is insured through: Primary Insurance: [employer] MANAGED MEDICARE Payor: [employer] MANAGED MEDICARE / Plan: [employer] MANAGED MEDICARE PPO / Product Type: *No Product type* / Secondary Insurance: N/A Plan for discharge is: Pending Hospital Course and PT/OT Recommendations Outpatient Agency/Support Group Needs: None Home Health Services: Occupational Therapy, Physical Therapy, Registered Nurse Agency Referrals: [facility] [address] [address] Transportation: family or friend will provide Barriers to discharge: Global: Denies needs/concerns at this time Plan: Patient is not medically ready related to: patient is going to the OR today for a washout andremains on blowout precautions. Plan going forward is: when able patient will need to work with PT/OT Anticipated Date of Discharge: 10/10/2024 Penny ROSAS RN Phone: [phone] Pager: [phone] * Plan of Care - Heidi Mobley [...] output. * Consult Note - Katelyn Oconnor [facility] - 09/30/2024 7:43 AM EST [facility] Pharmacokinetics Note Drug: Vancomycin Pharmacokinetic target: AUC24 (range) 400-600 mg/L.hr Current regimen: 1500 mg IV every 8 hours Geovanna Dixon is a(n) 49 years old male receiving Vancomycin 1500 mg IV every 8 hours for bacteremia Recent measured serum creatinine values: 09/29/2024 23:52 0.48 mg/dL 09/28/2024 23:51 0.52 mg/dL 09/27/2024 23:58 0.48 mg/dL Assessment: Analysis of the most recent level(s) using [employer] gives the following patient-specific pharmacokinetic parameters: CL: [...] Finney MD - 09/29/2024 2:41 PM EST [facility] Operative Note Patient Name: Geovanna Dixon Jr. : [id number] MR#: [id number] Case Date: 09/29/2024 Surgeon: Surgeons and Role: [...] 2nd toe amputation who was transferred from [facility] given concern for infected left fem-BK popliteal [...] mobilized and explored. The area around the ANESTHESIOLOGY TECH was irrigated copiously. The flap was then [...] No Patient is insured through: Primary Insurance: [employer] MANAGED MEDICARE Payor: [employer] MANAGED MEDICARE / Plan: [employer] MANAGED MEDICARE PPO / Product Type: *No Product type* / Secondary Insurance: N/A Plan for discharge is: Pending Hospital Course and PT/OT Recommendations Outpatient Agency/Support Group Needs: None Home Health Services: Occupational Therapy, Physical Therapy, Registered Nurse Agency Referrals: [facility] [address] [place] [address] Transportation: family or friend will provide Barriers [...] Discharge: 10/04/2024 Penny ROSAS, RN CM Phone: [phone] Pager: [phone] * Consult Note - Rose Wright APRN [...] 2nd toe amputation who was transferred from [facility] given concern for infected left fem-BK popliteal [...] smoking 1 week ago. He presented to [facility] on 09/26 and went to the OR [...] Procedure Component Value - Date/Time Blood culture [[id number]] (Abnormal) Collected: 09/27/24 2133 Lab Status: Preliminary result Specimen: Blood, Venous Updated: 09/29/24 0721 Blood Culture Methicillin Resistant Staphylococcus aureus Gram Stain Aerobic Bottle: Gram positive cocci in clusters Blood culture [[id number]] (Abnormal) Collected: 09/26/24 1845 Lab Status: Preliminary result Specimen: Blood, Venous Updated: 09/29/24 0719 Blood Culture Methicillin Resistant Staphylococcus aureus Comment: isolated. Susceptibilities previously reported. Gram Stain Aerobic Bottle: Gram positive cocci in clusters Blood culture [[id number]] (Abnormal) (Susceptibility) Collected: 09/26/24 1422 Lab Status: Preliminary result Specimen: Blood, Venous Updated: 09/29/24 0717 Blood Culture Methicillin Resistant Staphylococcus aureus Comment: detected by PCR Isolate saved. If future testing is required, contact the Microbiology Calciner Operator. Gram Stain Aerobic Bottle: Gram positive cocci in clusters Susceptibility Methicillin Resistant Staphylococcus aureus VITEK 2 METHOD Clindamycin Resistant Gentamicin Susceptible [1] Linezolid Susceptible Oxacillin Resistant Trimethoprim/Sulfa Susceptible Vancomycin Susceptible [1] Gentamicin is not appropriate for monotherapy for gram-positive infections. AFB culture [[id number]] Collected: 09/27/241653 Lab Status: Preliminary result Specimen: Tissue from Thigh, Left Updated: 09/28/24 2226 Acid Fast Stain No acid fast bacilli seen Anaerobic Culture [[id number]] Collected: 09/27/241653 Lab Status: Preliminary result Specimen: Tissue from Thigh, Left Updated: 09/28/24 1355 Anaerobic Culture No anaerobic organisms isolated to date Sonicated Tissue/Implant Culture [[id number]] Collected: 09/26/24 1716 Lab Status: Preliminary result Specimen: Vascular Graft from Leg, Left Updated: 09/28/24 1323 Sonicated Tissue/Implant Culture Culture in progress Tissue Culture, Aerobic Only [[id number]] (Abnormal) Collected: 09/27/241653 Lab Status: Preliminary result Specimen: Tissue from Thigh, Left Updated: 09/28/24 1049 Tissue Culture Rare Staphylococcus aureus Gram Stain Few Neutrophils seen No microorganisms seen Abscess/Wound Aspirate Culture, Aerobic Only [[id number]] (Abnormal) (Susceptibility) Collected: 09/26/24 1702 Lab Status: [...] to doxycycline. Abscess/Wound Aspirate Culture, Aerobic Only [[id number]] (Abnormal) (Susceptibility) Collected: 09/26/24 165 Lab Status: [...] is considered susceptible to doxycycline. Fungus culture [[id number]] Collected: 09/27/241653 Lab Status: Preliminary result Specimen: Tissue from Thigh, Left Updated: 09/28/24 0748 Fungus Culture No fungus isolated to date AFB culture [[id number]] Collected: 09/26/241701 Lab Status: Preliminary result Specimen: Abscess from Knee, Left Updated: 09/27/24 2335 Acid Fast Stain No acid fast bacilli seen MRSA PCR Screen [[id number]] (Abnormal) Collected: 09/27/24 0751 Lab Status: Final result Specimen: Swab from Nares Updated: 09/27/24 1156 MRSA PCR Detected Narrative: This test was performed using the Xpert MRSA NxG test kit and is run on the [employer] GeneXpert Dx System. This test is cleared by the U.S. Food and Drug Administration for clinical use and its performance characteristics have been verified by the [facility] at [facility]. Anaerobic Culture [[id number]] Collected: 09/26/241649 Lab Status: Preliminary result Specimen: Abscess from Groin, Left Updated: 09/27/24 1142 Anaerobic Culture No anaerobic organisms isolated to date Anaerobic Culture [[id number]] Collected: 09/26/241701 Lab Status: Preliminary result Specimen: Abscess from Knee, Left Updated: 09/27/24 1142 Anaerobic Culture No anaerobic organisms isolated to date Fungus culture [[id number]] Collected: 09/26/241649 Lab Status: Preliminary result Specimen: Abscess from Groin, Left Updated: 09/27/24 0727 Fungus Culture No fungus isolated to date Fungus culture [[id number]] Collected: 09/26/241701 Lab Status: Preliminary result Specimen: Abscess from Knee, Left Updated: 09/27/24 07 Fungus Culture No fungus isolated to date New Studies Results for orders placed or performed during the hospital encounter of 09/26/[address] Read CT Lower Extremity (Exam End: 09/26/2024 1:50 PM) Result Value WORKSTATION ID [id number] Impression 1. There is a left femoral [...] who have questions please contact the health manager respiratory care that requested your imaging first. Lower Extremity w Contrast Left (Exam End: 09/27/2024 9:16 AM) Result Value WORKSTATION ID [id number] Impression IMPRESSION: 1. Interval explant of LEFT [...] who have questions please contact the health manager respiratory care that requested your imaging first. 09/28 ABIs [...] 2nd toe amputation who was transferred from [facility] given concern for infected left fem-BK popliteal [...] Torres MD - 09/28/2024 12:23 PM EST [facility] Operative Note Patient Name: Geovanna Dixon Jr. : [id number] MR#: [id number] Case Date: 09/28/2024 Surgeon: Surgeons and Role: [...] pericardial patch and PTFE willard over the ANESTHESIOLOGY TECH was unincorporated. - Resection of prior femoral [...] Destination 1 : Left femoral proximal graft Hydrate Control Tender Leg, Left SURGICAL PATHOLOGY Hayley Torres MD 09/28/2024 1410 2 : Left distal BK pop graft Hydrate Control Tender Leg, Left SURGICAL PATHOLOGY Hayley Torres MD [...] Indications: 49M with history of a left ANESTHESIOLOGY TECH-BK popliteal artery bypass with PTFE performed in [...] solution. Systemic heparin was administered. Next, the ANESTHESIOLOGY TECH, SFA, and DFA were clamped. An 11-blade scalpel was used to excise the PTFE graft willard and the prior bovine pericardial patch, and all prior Prolene sutures were removed. Residual plaque in the arterial lumen was removed using a [place] elevator. The harvested vein patch was cut [...] the midline with division of the first software engineering supervisor, such that the sartorius muscle was free [...] prior bypass graft were irrigated below the Manito drains. Significant thrombus burden was expelled in [...] Torres MD - 09/28/2024 12:23 PM EST [facility] Operative Note Patient Name: Geovanna Dixon Jr. : [id number] MR#: [id number] Case Date: 09/28/2024 Surgeon: Surgeons and Role: [...] - Prior bovine pericardial patch over the ANESTHESIOLOGY TECH was unincorporated. - Resection of prior femoral [...] Bundle Used? No * Consult Note - Tae Nguyen, [facility] - 09/28/2024 9:23 AM EST Drug: [...] Analysis of the most recent level(s) using [employer] gives the following patient-specific pharmacokinetic parameters: CL: [...] Note Patient Name: Geovanna Dixon Jr. : [id number] MR#: [id number] Case Date: 09/27/2024 Surgeon: Surgeons and Role: [...] AEROBIC & ANAEROBIC Hayley Torres MD 09/27/2024 7746 Fluids: Intraprocedure Crystalloid Total None PRBCs: none [...] Torres MD - 09/27/2024 4:27 PM EST [facility] Operative Note Patient Name: Geovanna Dixon Jr. : [id number] MR#: [id number] Case Date: 09/26/2024 Surgeon: Surgeons and Role: [...] ANAEROBIC Hayley Torres MD 09/26/2024 1702 Drains: Manito drain between left groin to left thigh [...] HPI/Surgical Indications: 49M with history of left ANESTHESIOLOGY TECH-BK popliteal artery bypass graft with PTFE (July [...] the tunnel was milked out. A 0.5 Manito drain was used to maintain patency of [...] Torres MD - 09/27/2024 4:27 PM EST [facility] Operative Note Patient Name: Geovanna Dixon Jr. : [id number] MR#: [id number] Case Date: 09/27/2024 Surgeon: Surgeons and Role: [...] 2nd toe amputation who was transferred from [facility] given concern for infected left fem-BK popliteal [...] smoking 1 week ago. He presented to [facility] on 09/26 and went to the OR [...] management and to provide a review of intermediate diabetes care. Glargine 25 units administered [...] Q8H heparin (porcine) 5,000 Units Subcutaneous Q8H [facility] lidocaine 1 patch Transdermal Q24H Infusions: lactated Ringers 100 mL/hr (09/27/24 5369) sodium chloride 0.9% PRN: potassium chloride ER [...] Cunningham APRN Endocrinology Diabetes Management Service Pager: [phone] Weekends please page [phone] 80 minute visit was spent in counseling [...] surrogate would be surrogate decision maker per [place] surrogate decision making law. (Only good for 180 days) Any patient receiving care in [place] must abide by [place] law. The hierarchy for surrogate decision making [...] (i) The agent with financial power of back tufter or a conservator appointed in accordance with [...] homeless or living in a longterm (including now)?: No In the past 12 months has the [employer], gas, oil, or water [employer] threatened to shut off services in your [...] Current DME: none Home Address confirmed as: [address] [place] [id number] Social & Family Supports: All names listed [...] his home before. Health/Prescription Coverage: Primary Insurance: [employer] MANAGED MEDICARE Payor: [employer] MEDICARE / Plan: [facility] MANAGED MEDICARE PPO / Product Type: *No Product type* / Secondary Insurance: N/A ; Prescription Coverage: Yes Preferred Pharmacy: [id number] - [place], [place] - [address] [facility] [address] [facility] [address] [id number] - [place], [place] - [address] [address] [facility] [address] [facility] [place], [place] - [address] [facility] [address] [facility] [address] [facility] [address] [place] Status: Patient is a : No Primary Care Provider confirmed: JUSTIN Roberson [phone] Patient/Caregiver Goals of Treatment: patient will need [...] where referrals are placed. Provided patient with [facility] Star Quality Rating handout. They have requested referrals to: [facility]. [address] [place] [phone] Expected date of discharge: TBD Referral routed to the Data Warehouse Administrator for matching with agency/vendor and to provide [...] care as indicated. Penny ROSAS RN Phone: [phone] Pager: [phone] * Consult Note - Stacey Thomas MD [...] extremity aching prompting him to go to [facility]. The groin pain dissipated. About a week later on 09/26 he developed left-sided groin pain prompting him to go to [facility] once again. Lab work notable for WBC count of 21, lactic acid 3.6. He underwent evaluation with a CT scan demonstrating an abscess from the left groin operative site the entire left of the graft down by the knee. He was transferred to [facility] for further care and he [...] 3.51) performed by Thony Garcia MD at [facility] MAIN OR PRO BYPASS GRAFT OTHR, FEM-TIBIAL Left 08/01/2024 @BYPASS GRAFT, FEM-ANT TIBIAL, -POST TIBIAL, -PERONEAL, -DP W\ SYNTHETIC CONDUIT (WRVU 23.66) performed by Lisette Maldonado MD at [facility] MAIN OR PRO CABG, ARTERY-VEIN, SINGLE 01/04/2012 @CABG, VENOUS & ARTERIAL GRAFT;SINGLE VEIN GRAFT performed by INNA TOVAR at [facility] MAIN OR PRO ENDOSCOPY W/VIDEO-ASST VEIN HARVEST, CABG 01/04/2012 ENDOSCOPIC HARVEST VEIN(S) FOR CABG performed by INNA TOVAR at [facility] MAIN OR VS ARTERIOGRAM LOWER EXTREMITY VASCULAR SURGERY 07/20/2024 VS Arteriogram Lower Extremity Vascular Surgery 07/20/2024 Anabel Finney MD [facility] INTERVENTIONL RAD Medications: potassium chloride ER [...] admitted to SICU as a transfer from [facility] for suspected graft infection/sepsis. A/Ox4, able to [...] Torres MD - 09/26/2024 4:50 PM EST [facility] Operative Note Patient Name: Geovanna Dixon Jr. : [id number] MR#: [id number] Case Date: 09/26/2024 Surgeon: Surgeons and Role: * Hayley Torres MD - Primary * Dolly Dan MD - Resident - Assisting * Ken Moeller MD - Resident - Assisting Preoperative diagnosis: left infected femoral to below knee bypass graft Postoperative diagnosis: left infected femoral to below knee bypass graft Procedure: Explant of infected LEFT ANESTHESIOLOGY TECH to below-knee popliteal artery PTFE bypass graft [...] Indications: 49M with history of a left ANESTHESIOLOGY TECH-BK popliteal artery bypass with PTFE performed in [...] 2nd toe amputation who was transferred from [facility] given concern for infected left fem-BK popliteal [...] 3.51) performed by Thony Garcia MD at [facility] MAIN OR PRO BYPASS GRAFT OTHR, FEM-TIBIAL Left 08/01/2024 @BYPASS GRAFT, FEM-ANT TIBIAL, -POST TIBIAL, -PERONEAL, -DP W\ SYNTHETIC CONDUIT (WRVU 23.66) performed by Lisette Maldonado MD at [facility] MAIN OR PRO CABG, ARTERY-VEIN, SINGLE 01/04/2012 @CABG, VENOUS & ARTERIAL GRAFT;SINGLE VEIN GRAFT performed by INNA TOVAR at [facility] MAIN OR PRO ENDOSCOPY W/VIDEO-ASST VEIN HARVEST, CABG 01/04/2012 ENDOSCOPIC HARVEST VEIN(S) FOR CABG performed by INNA TOVAR at [facility] MAIN OR VS ARTERIOGRAM LOWER EXTREMITY VASCULAR SURGERY 07/20/2024 VS Arteriogram Lower Extremity Vascular Surgery 07/20/2024 Anabel Finney MD [facility] INTERVENTIONL RAD Social Hx: Social History [...] 3 times daily. Use as instructed Indications: [id number] each 1 FreeStyle Lancets 28 gauge Misc [...] 2nd toe amputation who was transferred from [facility] given concern for infected left fem-BK popliteal [...] PM EST Office [place] [address] Isabela Hayward APRN [facility] [place] [address] 11/10/2024 10:00 AM EST Office [place] [phone] Dai Whitman APRN 11/21/2024 2:15 PM EST Office [place] [phone] Dayanara Grover MD [facility] [place] [address] Pending Results Name Type Priority Associated Diagnoses Date /Time AFB culture Microbiology STAT 09/26/2024 5:02 PM EST AFB culture Microbiology Routine 09/27/2024 [...] 4:49 PM EST Debridement, Skin, Sub-Q Tissue (30805) 10/04/2024 3:10 PM EST Status post explant of infected left ANESTHESIOLOGY TECH-BK pop bypass graft DEBRIDEMENT SKIN AND SUBCU, [...] Debridement Muscle And Fascia 20 Sq Cm/< ([id number]) 10/02/2024 1:28 PM EST Infected LLE graft [...] Debridement Muscle And Fascia 20 Sq Cm/< ([id number]) 09/29/2024 2:06 PM EST explanted LLE infected graft Exploration Not Followed By Surg Lower Extremity Artery ([id number]) 09/29/2024 2:06 PM EST explanted LLE infected [...] 10 PM EST Excision, Infec Graft, Extremity ([id number]) 09/28/2024 11:28 AM EST Infected explanted left leg bypass graft Form Skin Pedicle Flap Scalp, Arm, Leg ([id number]) 09/28/2024 11:28 AM EST Infected explanted left leg bypass graft Unlisted Procedure Vascular Surgery ([id number]) 09/28/2024 11:28 AM EST Infected explanted left leg bypass graft Revision Femoral Anast Bpg Groin Open W/Nonautog Patch Graft ([id number]) 09/28/2024 11:28 AM EST Infected explanted left [...] EST I&D Deep Abscess Bursa/Hematoma Thigh/Knee Region ([id number]) 09/27/2024 3:45 PM EST Infected explanted left leg bypass graft Drain Lower Leg Deep Absc/Hematoma ([id number]) 09/27/2024 3:45 PM EST Infected explanted left leg bypass graft Excision, Infec Graft, Extremity ([id number]) 09/27/2024 3:45 PM EST Infected explanted left leg bypass graft Debridement, Skin, Sub-Q Tissue ([id number]) 09/27/2024 3:45 PM EST Infected explanted left [...] EST I&D Deep Abscess Bursa/Hematoma Thigh/Knee Region ([id number]) 09/26/2024 3:52 PM EST left infected femoral to below knee bypass graft Drain Lower Leg Deep Absc/Hematoma ([id number]) 09/26/2024 3:52 PM EST left infected femoral to below knee bypass graft Excision, Infec Graft, Extremity ([id number]) 09/26/2024 3:52 PM EST left infected femoral [...] 1:50 PM EST HELEN complete wo contrast ([id number]) nstemi afib documented in this encounter Results * (ABNORMAL) Comprehensive metabolic panel Non-fasting (10/16/2024) Glucose Lvl - External 124(H) [facility] Blood Urea Nitrogen - External 17 [facility] Creatinine - External 0.9 [facility] EGFR - External 104.05 [facility] Anion Gap - External 11.6(H) [facility] Sodium - External 141 [facility] Potassium - External 4.3 [facility] Chloride - External 103 [facility] CO2 - External 26.4 [facility] Calcium - External 9.0 [facility] Protein, Total - External 6.9 [facility] Albumin - External 3.0(L) [facility] Total Bilirubin - External 0.20 [facility] Alk Phos - External 124(H) [facility] AST (SGOT) - External 12 [facility] ALT (SGPT) - External 22 [facility] Blood VENOUS BLOOD SPECIMEN / Unknown 10/16/2024 Amaya Hernandez MD CHEMISTRY ORDERABLES Performing Organization Address [facility] Co de Phone Number [address] [place] [phone] * CK (10/16/2024) CK, Total - External 39 [facility] Blood VENOUS BLOOD SPECIMEN / Unknown 10/16/2024 Amaya Hernandez MD CHEMISTRY ORDERABLES Performing Organization Address City/[facility] Co de Phone Number [address] [place] [place] [id number] [place] [address] * (ABNORMAL) CBC (with Diff) (10/16/2024) WBC - External 10.99(H) [facility] RBC - External 3.71(L) [facility] Hemoglobin - External 10.8(L) [facility] Hematocrit - External 33.8(L) [facility] MCV - External 91 [facility] MCH - External 29.1 [facility] MCHC - External 32.0 [facility] RDWCV - External 14.2(H) [facility] Platelets - External 512(H) [facility] MPV - External 9.8 [facility] NRBC % - External 0.0 [facility] NRBC Abs - External 0.0 [facility] Neutrophils % - External 64.2 [facility] Lymphocytes % - External 25.8 [facility] Monocytes % - External 6.8 [facility] Eosinophils % - External 2.0 [facility] Basophils % - External 0.9 [facility] Immature Gran % - External 0.3 [facility] Neutr ABS (ANC) - External 7.06(H) [facility] Lymphocyte ABS - External 2.84 [facility] Monocyte ABS - External 0.75 [facility] Eosinophil ABS - External 0.22 [facility] Basophil ABS - External 0.10 [facility] Blood VENOUS BLOOD SPECIMEN / Unknown 10/16/2024 Amaya Hernandez MD HEMATOLOGY ORDERABLE S [facility] [address] [place], [place] [address] [phone] * POC, GLUCOSE (10/10/2024 4:27 PM EST) Glucometer, POC 172 65 - 199 mg/dL 10/10/2024 4:27 PM EST [facility] Comment:Supplemental ranges: <140 mg/dL before meals <180 mg/dL all other times of the day. Blood CAPILLARY BLOOD / Unknown 10/10/2024 4:27 PM EST 10/10/2024 4:27 PM EST Hayley Torres MD POINT OF CARE TEST O RDERABLES [facility] [place] [address] * POC, GLUCOSE (10/10/2024 11:10 AM EST) Glucometer, POC 174 65 - 199 mg/dL 10/10/2024 11:11 AM EST [facility] Comment:Supplemental ranges: <140 mg/dL before meals <180 mg/dL all other times of the day. Blood CAPILLARY BLOOD / Unknown 10/10/2024 11:10 AM EST 10/10/2024 11:11 AM EST Hayley Torres MD POINT OF CARE TEST O RDERAHERNANDEZ Performing Organization Address City/[facility]/ZIP Co de Phone Number [facility] [place] [address] * POC, GLUCOSE (10/10/2024 7:46 AM EST) Glucometer, POC 141 65 - 199 mg/dL 10/10/2024 7:46 AM EST [facility] Comment:Supplemental ranges: <140 mg/dL before meals <180 mg/dL all other times of the day. Blood CAPILLARY BLOOD / Unknown 10/10/2024 7:46 AM EST 10/10/2024 7:46 AM EST Hayley Torres MD POINT OF CARE TEST O GILDA Performing Organization Address [facility] Co de Phone Number [facility] [place] [address] * POC, GLUCOSE (10/10/2024 6:11 AM EST) Glucometer, POC 127 65 - 199 mg/dL 10/10/2024 6:11 AM EST [facility] Comment:Supplemental ranges: <140 mg/dL before meals <180 mg/dL all other times of the day. Blood CAPILLARY BLOOD / Unknown 10/10/2024 6:11 AM EST 10/10/2024 6:11 AM EST Hayley Torres MD POINT OF CARE TEST O GILDA Performing Organization Address City/[facility]/ZIP Co de Phone Number [facility] [place] [address] * CK (10/10/2024 12:33 AM EST) Creatine Kinase 32 0 - 200 unit/L 10/10/2024 8:54 AM EST [facility] Blood VENOUS BLOOD SPECIMEN / Unknown Venipuncture / Unknown 10/10/2024 12:33 AM EST 10/10/2024 12:43 AM EST María Kyler Carranza DISH UP PERSON CHEMISTRY ORDER RANDELL [facility] [place] [address] * (ABNORMAL) CBC (with Diff) (10/10/2024 12:33 AM EST) White Blood Cell 11.57(H) 4.00 - 9.50 x10(3)/mc L 10/10/2024 12:48 AM [facility] Red Blood Cell 3.75(L) 4.58 - 5.54 x10(6)/mc L 10/10/2024 12:48 AM [facility] Hemoglobin 11.1(L) 13.7 - 16.5 g/dL 10/10/2024 12:48 AM [facility] Hematocrit 33.5(L) 40.5 - 48.5 % 10/10/2024 12:48 AM [facility] Mean Cell Volume 89.3 82.9 - 93.1 fL 10/10/2024 12:48 AM [facility] Mean Cell Hemoglobin 29.6 27.5 - 32.1 pg 10/10/2024 12:48 AM [facility] Mean Cell Hemoglobin Concentration 33.1 32.0 - 35.7 g/dL 10/10/2024 12:48 AM [facility] Platelet 823(H) 145 - 357 x10(3)/mc L 10/10/2024 12:48 AM [facility] Mean Platelet Volume 9.2 7.6 - 12.9 fL 10/10/2024 12:48 AM [facility] RDW Standard Deviation 46.3(H) 36.0 - 45.0 fL 10/10/2024 12:48 AM [facility] RDW coefficient of variation 14.6(H) 11.4 - 13.8 % 10/10/2024 12:48 AM [facility] NRBC% auto 0.0 % 10/10/2024 12:48 AM [facility] NRBC Absolute <0.01 <0.01 x10(3)/mc L 10/10/2024 12:48 AM [facility] Neutrophil % 61.3 % 10/10/2024 12:48 AM [facility] Neutrophil Absolute (ANC) - Automated 7.08(H) 1.70 - 6.10 x10(3)/mc L 10/10/2024 12:48 AM [facility] Lymph % 28.7 % 10/10/2024 12:48 AM [facility] Lymph Absolute 3.32(H) 0.90 - 3.20 x10(3)/mc L 10/10/2024 12:48 AM [facility] Monocyte % 7.0 % 10/10/2024 12:48 AM [facility] Monocyte Absolute 0.81 0.30 - 0.90 x10(3)/mc L 10/10/2024 12:48 AM [facility] Eos % 1.6 % 10/10/2024 12:48 AM [facility] Eos Absolute 0.19 0.00 - 0.40 x10(3)/mc L 10/10/2024 12:48 AM [facility] Basophil % 1.0 % 10/10/2024 12:48 AM [facility] Baso Absolute 0.12(H) 0.00 - 0.10 x10(3)/mc L 10/10/2024 12:48 AM [facility] Immature Gran % 0.4 % 12:48 AM [facility] Immature Gran Absolute 0.05(H) 0.00 - 0.04 x10(3)/mc L 10/10/2024 12:48 AM [facility] Blood VENOUS BLOOD SPECIMEN / Unknown Venipuncture / Unknown 10/10/2024 12:33 AM EST 10/10/2024 12:43 AM EST Hayley Torres MD HEMATOLOGY ORDERABLE S [facility] [place] [address] * (ABNORMAL) Basic Metabolic Panel (10/10/2024 12:33 AM EST) Glucose 125 65 - 199 mg/dL 10/10/2024 1:12 AM [facility] Comment:Glucose Concentratio n >=200 mg/dL plus symptoms is consistent with Diabetes Mellitus. Blood Urea Nitrogen 19 10 - 20 mg/dL 10/10/2024 1:12 AM [facility] Creatinine 0.57(L) 0.80 - 1.50 mg/dL 10/10/2024 1:12 AM [facility] Sodium 138 135 - 145 mMol/L 10/10/2024 1:12 AM [facility] Potassium 4.1 3.5 - 5.0 mMol/L 10/10/2024 1:12 AM [facility] Chloride 103 98 - 107 mMol/L 10/10/2024 1:12 AM [facility] Carbon Dioxide 25 22 - 31 mMol/L 10/10/2024 1:12 AM [facility] Anion Gap 10 5 - 15 mMol/L 10/10/2024 1:12 AM [facility] Calcium 9.4 8.5 - 10.5 mg/dL 10/10/2024 1:12 AM [facility] Est Glomerular Filtration Rate - Male 119 mL/min/1. 73 m?? 10/10/2024 1:12 AM [facility] Comment: This patient's estimated GFR was [...] Torres MD CHEMISTRY ORDERABLES Performing Organization Address City/[facility]/ZIP Co de Phone Number [facility] [place] [address] * Phosphorus (10/10/2024 12:33 AM EST) Phosphorus 3.8 2.5 - 4.5 mg/dL 10/10/2024 1:12 AM EST [facility] Blood VENOUS BLOOD SPECIMEN / Unknown Venipuncture / Unknown 10/10/2024 12:33 AM EST 10/10/2024 12:43 AM EST Hayley Torres MD CHEMISTRY ORDERABLES Performing Organization Address [facility] Co de Phone Number [facility] [place] [address] * Magnesium (10/10/2024 12:33 AM EST) Magnesium 0.81 0.69 - 1.07 mMol/L 10/10/2024 1:12 AM EST [facility] Blood VENOUS BLOOD SPECIMEN / Unknown Venipuncture / Unknown 10/10/2024 12:33 AM EST 10/10/2024 12:43 AM EST Hayley Torres MD CHEMISTRY ORDERABLES Performing Organization Address City/[facility] Co de Phone Number [facility] [place] [address] * POC, GLUCOSE (10/10/2024 12:31 AM EST) Glucometer, POC 119 65 - 199 mg/dL 10/10/2024 12:32 AM EST [facility] Comment:Supplemental ranges: <140 mg/dL before meals <180 mg/dL all other times of the day. Blood CAPILLARY BLOOD / Unknown 10/10/2024 12:31 AM EST 10/10/2024 12:32 AM EST Hayley Torres MD POINT OF CARE TEST O GILDA Performing Organization Address City/[facility]/ZIP Co de Phone Number [facility] [place] [address] * POC, GLUCOSE (10/09/2024 8:16 PM EST) Glucometer, POC 104 65 - 199 mg/dL 10/09/2024 8:16 PM EST [facility] Comment:Supplemental ranges: <140 mg/dL before meals <180 mg/dL all other times of the day. Blood CAPILLARY BLOOD / Unknown 10/09/2024 8:16 PM EST 10/09/2024 8:16 PM EST Hayley Torres MD POINT OF CARE TEST O GILDA Performing Organization Address [facility] Co de Phone Number [facility] [place] [address] * POC, GLUCOSE (10/09/2024 3:57 PM EST) Glucometer, POC 120 65 - 199 mg/dL 10/09/2024 3:57 PM EST [facility] Comment:Supplemental ranges: <140 mg/dL before meals <180 mg/dL all other times of the day. Blood CAPILLARY BLOOD / Unknown 10/09/2024 3:57 PM EST 10/09/2024 3:57 PM EST Hayley Torres MD POINT OF CARE TEST O GILDA Performing Organization Address City/[facility]/ZIP Co de Phone Number [facility] [place] [address] * Place PICC Line: Contact Vascular Access Page [phone] Extremity to exclude: No restrictions; Is PICC [...] to the planned procedure. Hand Hygiene: The information delivery analyst did perform hand hygiene prior to line insertion. Catheter type: PICC Lot number: [id number] Procedure Technique: Skin was prepped with chlorhexidine. [...] Team) (10/09/2024 1:55 PM EST) WORKSTATION ID [id number] RAD Anatomical Region Laterality Modality N/A Radio [...] who have questions please contact the health manager respiratory care that requested your imaging first. ? Narrative [...] patients who have questions please contactthe health manager respiratory care that requested your imaging first. María Carranza APRN IMG FRANCHESKA GILBERT * POC, GLUCOSE (10/09/2024 11:40 AM EST) Glucometer, POC 180 65 - 199 mg/dL 10/09/2024 11:40 AM EST [facility] Comment:Supplemental ranges: <140 mg/dL before meals <180 mg/dL all other times of the day. Blood CAPILLARY BLOOD / Unknown 10/09/2024 11:40 AM EST 10/09/2024 11:41 AM EST Hayley Torres MD POINT OF CARE TEST O RDERABLES [facility] [place] [address] * (ABNORMAL) POC, GLUCOSE (10/09/2024 7:35 AM EST) Glucometer, POC 215(H) 65 - 199 mg/dL 10/09/2024 7:36 AM EST [facility] Comment:Supplemental ranges: <140 mg/dL before meals <180 mg/dL all other times of the day. Blood CAPILLARY BLOOD / Unknown 10/09/2024 7:35 AM EST 10/09/2024 7:36 AM EST Hayley Torres MD POINT OF CARE TEST O GILDA Performing Organization Address City/[facility] Co de Phone Number [facility] [place] [address] * POC, GLUCOSE (10/09/2024 4:26 AM EST) Glucometer, POC 175 65 - 199 mg/dL 10/09/2024 4:26 AM EST [facility] Comment:Supplemental ranges: <140 mg/dL before meals <180 mg/dL all other times of the day. Blood CAPILLARY BLOOD / Unknown 10/09/2024 4:26 AM EST 10/09/2024 4:26 AM EST Hayley Torres MD POINT OF CARE TEST O GILDA Performing Organization Address [facility] Co de Phone Number [facility] [place] [address] * (ABNORMAL) CBC (with Diff) (10/09/2024 12:45 AM EST) White Blood Cell 11.27(H) 4.00 - 9.50 x10(3)/mc L 10/09/2024 1:31 AM [facility] Red Blood Cell 3.74(L) 4.58 - 5.54 x10(6)/mc L 10/09/2024 1:31 AM [facility] Hemoglobin 10.8(L) 13.7 - 16.5 g/dL 10/09/2024 1:31 AM [facility] Hematocrit 33.5(L) 40.5 - 48.5 % 10/09/2024 1:31 AM [facility] Mean Cell Volume 89.6 82.9 - 93.1 fL 10/09/2024 1:31 AM [facility] Mean Cell Hemoglobin 28.9 27.5 - 32.1 pg 10/09/2024 1:31 AM [facility] Mean Cell Hemoglobin Concentration 32.2 32.0 - 35.7 g/dL 10/09/2024 1:31 AM [facility] Platelet 886(H) 145 - 357 x10(3)/mc L 10/09/2024 1:31 AM [facility] Mean Platelet Volume 9.5 7.6 - 12.9 fL 10/09/2024 1:31 AM [facility] RDW Standard Deviation 47.7(H) 36.0 - 45.0 fL 10/09/2024 1:31 AM [facility] RDW coefficient of variation 14.6(H) 11.4 - 13.8 % 10/09/2024 1:31 AM [facility] NRBC% auto 0.0 % 10/09/2024 1:31 AM [facility] NRBC Absolute <0.01 <0.01 x10(3)/mc L 10/09/2024 1:31 AM [facility] Neutrophil % 61.7 % 10/09/2024 1:31 AM [facility] Neutrophil Absolute (ANC) - Automated 6.95(H) 1.70 - 6.10 x10(3)/mc L 10/09/2024 1:31 AM [facility] Lymph % 28.3 % 10/09/2024 1:31 AM [facility] Lymph Absolute 3.19 0.90 - 3.20 x10(3)/mc L 10/09/2024 1:31 AM [facility] Monocyte % 6.8 % 10/09/2024 1:31 AM [facility] Monocyte Absolute 0.77 0.30 - 0.90 x10(3)/mc L 10/09/2024 1:31 AM [facility] Eos % 1.5 % 10/09/2024 1:31 AM [facility] Eos Absolute 0.17 0.00 - 0.40 x10(3)/mc L 10/09/2024 1:31 AM EST [facility] Basophil % 1.1 % 10/09/2024 1:31 AM [facility] Baso Absolute 0.12(H) 0.00 - 0.10 x10(3)/mc L 10/09/2024 1:31 AM [facility] Immature Gran % 0.6 % 1:31 AM [facility] Immature Gran Absolute 0.07(H) 0.00 - 0.04 x10(3)/mc L 10/09/2024 1:31 AM [facility] Blood VENOUS BLOOD SPECIMEN / Unknown Venipuncture / Unknown 10/09/2024 12:45 AM EST 10/09/2024 1:27 AM EST Hayley Torres MD HEMATOLOGY ORDERABLE S Performing Organization Address City/State/[facility] Co de Phone Number [facility] [place] [address] * (ABNORMAL) Basic Metabolic Panel (10/09/2024 12:45 AM EST) Glucose 135 65 - 199 mg/dL 10/09/2024 1:54 AM [facility] Comment:Glucose Concentratio n >=200 mg/dL plus symptoms is consistent with Diabetes Mellitus. Blood Urea Nitrogen 22(H) 10 - 20 mg/dL 10/09/2024 1:54 AM [facility] Creatinine 0.53(L) 0.80 - 1.50 mg/dL 10/09/2024 1:54 AM [facility] Sodium 138 135 - 145 mMol/L 10/09/2024 1:54 AM [facility] Potassium 4.1 3.5 - 5.0 mMol/L 10/09/2024 1:54 AM [facility] Chloride 102 98 - 107 mMol/L 10/09/2024 1:54 AM [facility] Carbon Dioxide 24 22 - 31 mMol/L 10/09/2024 1:54 AM EST [facility] Anion Gap 12 5 - 15 mMol/L 10/09/2024 1:54 AM EST [facility] Calcium 9.4 8.5 - 10.5 mg/dL 10/09/2024 1:54 AM EST [facility] Est Glomerular Filtration Rate - Male 122 mL/min/1. 73 m?? 10/09/2024 1:54 AM EST [facility] Comment: This [...] AM EST Hayley Torres MD CHEMISTRY ORDERABLES [facility] [place] [address] * Phosphorus (10/09/2024 12:45 AM EST) Phosphorus 3.9 2.5 - 4.5 mg/dL 10/09/2024 1:54 AM EST [facility] Blood VENOUS BLOOD SPECIMEN / Unknown Venipuncture / Unknown 10/09/2024 12:45 AM EST 10/09/2024 1:27 AM EST Hayley Torres MD CHEMISTRY ORDERABLES [facility] [place] [address] * Magnesium (10/09/2024 12:45 AM EST) Magnesium 0.80 0.69 - 1.07 mMol/L 10/09/2024 1:54 AM EST [facility] Blood VENOUS BLOOD SPECIMEN / Unknown Venipuncture / Unknown 10/09/2024 12:45 AM EST 10/09/2024 1:27 AM EST Hayley Torres MD CHEMISTRY ORDERABLES Performing Organization Address City/[facility] Co de Phone Number [facility] [place] [address] * POC, GLUCOSE (10/09/2024 12:11 AM EST) Glucometer, POC 157 65 - 199 mg/dL 10/09/2024 12:11 AM EST [facility] Comment:Supplemental ranges: <140 mg/dL before meals <180 mg/dL all other times of the day. Blood CAPILLARY BLOOD / Unknown 10/09/2024 12:11 AM EST 10/09/2024 12:11 AM EST Hayley Torres MD POINT OF CARE TEST O RDERABLES Performing Organization Address [facility] Co de Phone Number [facility] [place] [address] * POC, GLUCOSE (10/08/2024 7:25 PM EST) Glucometer, POC 157 65 - 199 mg/dL 10/08/2024 7:25 PM EST [facility] Comment:Supplemental ranges: <140 mg/dL before meals <180 mg/dL all other times of the day. Blood CAPILLARY BLOOD / Unknown 10/08/2024 7:25 PM EST 10/08/2024 7:25 PM EST Hayley Torres MD POINT OF CARE TEST O RDERABLES Performing Organization Address City/[facility]/ZIP Co de Phone Number [place] [facility] [place] [address] * POC, GLUCOSE (10/08/2024 5:54 PM EST) Glucometer, POC 198 65 - 199 mg/dL 10/08/2024 5:54 PM EST [facility] Comment:Supplemental ranges: <140 mg/dL before meals <180 mg/dL all other times of the day. Blood CAPILLARY BLOOD / Unknown 10/08/2024 5:54 PM EST 10/08/2024 5:54 PM EST Hayley Torres MD POINT OF CARE TEST O GILDA [facility] [place] [address] * (ABNORMAL) POC, GLUCOSE (10/08/2024 4:08 PM EST) Glucometer, POC 281(H) 65 - 199 mg/dL 10/08/2024 4:08 PM EST [facility] Comment:Supplemental ranges: <140 mg/dL before meals <180 mg/dL all other times of the day. Blood CAPILLARY BLOOD / Unknown 10/08/2024 4:08 PM EST 10/08/2024 4:09 PM EST Hayley Torres MD POINT OF CARE TEST Stephanie VO [facility] [place] [address] * POC, GLUCOSE (10/08/2024 12:44 PM EST) Glucometer, POC 146 65 - 199 mg/dL 10/08/2024 12:44 PM EST [facility] Comment:Supplemental ranges: <140 mg/dL before meals <180 mg/dL all other times of the day. Blood CAPILLARY BLOOD / Unknown 10/08/2024 12:44 PM EST 10/08/2024 12:44 PM EST Hayley Torres MD POINT OF CARE TEST O GILDA Performing Organization Address [facility] de Phone Number [facility] [place] [address] * POC, GLUCOSE (10/08/2024 8:30 AM EST) Glucometer, POC 172 65 - 199 mg/dL 10/08/2024 8:30 AM EST [facility] Comment:Supplemental ranges: <140 mg/dL before meals <180 mg/dL all other times of the day. Blood CAPILLARY BLOOD / Unknown 10/08/2024 8:30 AM EST 10/08/2024 8:30 AM EST Hayley Torres MD POINT OF CARE TEST O GILDA Performing Organization Address [facility][1] de Phone Number [facility] [place] [address] * Vancomycin Level, Random (10/08/2024 5:59 AM EST) Vancomycin, Random 6.8 mg/L 2023 7:58 AM EST [facility] Comment:This level is for de termination of the patient's vancomycin houp-zilwp-bng-curve (AUC) value. Contact the inpatient pharmacy for interpretation. Blood VENOUS BLOOD SPECIMEN / Unknown Venipuncture / Unknown 10/08/2024 5:59 AM EST 10/08/2024 7:29 AM EST Hayley Torres MD CHEMISTRY ORDERABLES Performing Organization Address [facility] Co de Phone Number [facility] [place] [address] * POC, GLUCOSE (10/08/2024 4:02 AM EST) Glucometer, POC 163 65 - 199 mg/dL 10/08/2024 4:02 AM EST [facility] Comment:Supplemental ranges: <140 mg/dL before meals <180 mg/dL all other times of the day. Blood CAPILLARY BLOOD / Unknown 10/08/2024 4:02 AM EST 10/08/2024 4:02 AM EST Hayley Torres MD POINT OF CARE TEST O RDERABLES [facility] [place] [address] * (ABNORMAL) CBC (with Diff) (10/08/2024 12:08 AM EST) White Blood Cell 10.35(H) 4.00 - 9.50 x10(3)/mc L 10/08/2024 12:29 AM [facility] Red Blood Cell 3.53(L) 4.58 - 5.54 x10(6)/mc L 10/08/2024 12:29 AM [facility] Hemoglobin 10.2(L) 13.7 - 16.5 g/dL 10/08/2024 12:29 AM [facility] Hematocrit 31.7(L) 40.5 - 48.5 % 10/08/2024 12:29 AM [facility] Mean Cell Volume 89.8 82.9 - 93.1 fL 10/08/2024 12:29 AM [facility] Mean Cell Hemoglobin 28.9 27.5 - 32.1 pg 10/08/2024 12:29 AM [facility] Mean Cell Hemoglobin Concentration 32.2 32.0 - 35.7 g/dL 10/08/2024 12:29 AM [facility] Platelet 778(H) 145 - 357 x10(3)/mc L 10/08/2024 12:29 AM [facility] Mean Platelet Volume 9.1 7.6 - 12.9 fL 10/08/2024 12:29 AM [facility] RDW Standard Deviation 47.5(H) 36.0 - 45.0 fL 10/08/2024 12:29 AM [facility] RDW coefficient of variation 14.6(H) 11.4 - 13.8 % 10/08/2024 12:29 AM [facility] NRBC% auto 0.0 % 10/08/2024 12:29 AM [facility] NRBC Absolute <0.01 <0.01 x10(3)/mc L 10/08/2024 12:29 AM [facility] Neutrophil % 60.9 % 10/08/2024 12:29 AM [facility] Neutrophil Absolute (ANC) - Automated 6.30(H) 1.70 - 6.10 x10(3)/mc L 10/08/2024 12:29 AM [facility] Lymph % 28.4 % 10/08/2024 12:29 AM [facility] Lymph Absolute 2.94 0.90 - 3.20 x10(3)/mc L 10/08/2024 12:29 AM [facility] Monocyte % 7.2 % 10/08/2024 12:29 AM [facility] Monocyte Absolute 0.75 0.30 - 0.90 x10(3)/mc L 10/08/2024 12:29 AM [facility] Eos % 1.7 % 10/08/2024 12:29 AM [facility] Eos Absolute 0.18 0.00 - 0.40 x10(3)/mc L 10/08/2024 12:29 AM [facility] Basophil % 1.0 % 10/08/2024 12:29 AM [facility] Baso Absolute 0.10 0.00 - 0.10 x10(3)/mc L 10/08/2024 12:29 AM [facility] Immature Gran % 0.8 % 12:29 AM [facility] Immature Gran Absolute 0.08(H) 0.00 - 0.04 x10(3)/mc L 10/08/2024 12:29 AM [facility] Blood VENOUS BLOOD SPECIMEN / Unknown Venipuncture / Unknown 10/08/2024 12:08 AM EST 10/08/2024 12:23 AM EST Hayley Torres MD HEMATOLOGY ORDERABLE S [facility] [place] [address] * (ABNORMAL) Basic Metabolic Panel (10/08/2024 12:08 AM EST) Glucose 151 65 - 199 mg/dL 10/08/2024 12:50 AM [facility] Comment:Glucose Concentratio n >=200 mg/dL plus symptoms is consistent with Diabetes Mellitus. Blood Urea Nitrogen 19 10 - 20 mg/dL 10/08/2024 12:50 AM [facility] Creatinine 0.60(L) 0.80 - 1.50 mg/dL 10/08/2024 12:50 AM [facility] Sodium 135 135 - 145 mMol/L 10/08/2024 12:50 AM [facility] Potassium 3.8 3.5 - 5.0 mMol/L 10/08/2024 12:50 AM [facility] Chloride 101 98 - 107 mMol/L 10/08/2024 12:50 AM [facility] Carbon Dioxide 25 22 - 31 mMol/L 10/08/2024 12:50 AM [facility] Anion Gap 9 5 - 15 mMol/L 10/08/2024 12:50 AM [facility] Calcium 9.2 8.5 - 10.5 mg/dL 10/08/2024 12:50 AM [facility] Est Glomerular Filtration Rate - Male 118 mL/min/1. 73 m?? 10/08/2024 12:50 AM [facility] Comment: This patient's estimated GFR was [...] AM EST Hayley Torres MD CHEMISTRY ORDERABLES [facility] [place] [address] * Phosphorus (10/08/2024 12:08 AM EST) Phosphorus 3.4 2.5 - 4.5 mg/dL 10/08/2024 12:50 AM EST [facility] Blood VENOUS BLOOD SPECIMEN / Unknown Venipuncture / Unknown 10/08/2024 12:08 AM EST 10/08/2024 12:23 AM EST Hayley Torres MD CHEMISTRY ORDERABLES Performing Organization Address City/[facility]/ZIP Co de Phone Number [facility] [place] [address] * Magnesium (10/08/2024 12:08 AM EST) Magnesium 0.85 0.69 - 1.07 mMol/L 10/08/2024 12:50 AM EST [facility] Blood VENOUS BLOOD SPECIMEN / Unknown Venipuncture / Unknown 10/08/2024 12:08 AM EST 10/08/2024 12:23 AM EST Hayley Torres MD CHEMISTRY ORDERABLES Performing Organization Address City/[facility] Co de Phone Number [facility] [place] [address] * CK (10/08/2024 12:08 AM EST) Creatine Kinase 24 0 - 200 unit/L 10/08/2024 12:50 AM EST [facility] Blood VENOUS BLOOD SPECIMEN / Unknown Venipuncture / Unknown 10/08/2024 12:08 AM EST 10/08/2024 12:23 AM EST Hayley Torres MD CHEMISTRY ORDERABLES Performing Organization Address City/[facility]/ZIP Co de Phone Number [facility] [place] [address] * POC, GLUCOSE (10/08/2024 12:05 AM EST) Glucometer, POC 100 65 - 199 mg/dL 10/08/2024 12:05 AM EST [facility] Comment:Supplemental ranges: <140 mg/dL before meals <180 mg/dL all other times of the day. Blood CAPILLARY BLOOD / Unknown 10/08/2024 12:05 AM EST 10/08/2024 12:05 AM EST Hayley Torres MD POINT OF CARE TEST O RDERABLES Performing Organization Address City/[facility]/ZIP Co de Phone Number [facility] [place] [address] * POC, GLUCOSE (10/07/2024 8:29 PM EST) Glucometer, POC 107 65 - 199 mg/dL 10/07/2024 8:30 PM EST [facility] Comment:Supplemental ranges: <140 mg/dL before meals <180 mg/dL all other times of the day. Blood CAPILLARY BLOOD / Unknown 10/07/2024 8:29 PM EST 10/07/2024 8:30 PM EST Hayley Torres MD POINT OF CARE TEST O RDERABLES [facility] [place] [address] * POC, GLUCOSE (10/07/2024 4:33 PM EST) Glucometer, POC 129 65 - 199 mg/dL 10/07/2024 4:33 PM EST [facility] Comment:Supplemental ranges: <140 mg/dL before meals <180 mg/dL all other times of the day. Blood CAPILLARY BLOOD / Unknown 10/07/2024 4:33 PM EST 10/07/2024 4:34 PM EST Hayley Torres MD POINT OF CARE TEST O GILDA Performing Organization Address [facility] de Phone Number [facility] [place] [address] * (ABNORMAL) POC, GLUCOSE (10/07/2024 10:58 AM EST) Glucometer, POC 221(H) 65 - 199 mg/dL 10/07/2024 10:59 AM EST [facility] Comment:Supplemental ranges: <140 mg/dL before meals <180 mg/dL all other times of the day. Blood CAPILLARY BLOOD / Unknown 10/07/2024 10:58 AM EST 10/07/2024 10:59 AM EST Hayley Torres MD POINT OF CARE TEST O GILDA Performing Organization Address [facility] Phone Number [facility] [place] [address] * (ABNORMAL) POC, GLUCOSE (10/07/2024 7:42 AM EST) Glucometer, POC 201(H) 65 - 199 mg/dL 10/07/2024 7:42 AM EST [facility] Comment:Supplemental ranges: <140 mg/dL before meals <180 mg/dL all other times of the day. Blood CAPILLARY BLOOD / Unknown 10/07/2024 7:42 AM EST 10/07/2024 7:43 AM EST Hayley Torres MD POINT OF CARE TEST O GILDA Performing Organization Address [facility] Co de Phone Number [facility] [place] [address] * POC, GLUCOSE (10/07/2024 3:58 AM EST) Glucometer, POC 150 65 - 199 mg/dL 10/07/2024 3:58 AM [facility] Comment:Supplemental ranges: <140 mg/dL before meals <180 mg/dL all other times of the day. Blood CAPILLARY BLOOD / Unknown 10/07/2024 3:58 AM EST 10/07/2024 3:58 AM EST Hayley Torres MD POINT OF CARE TEST O RDERABLES [facility] [place] [address] * (ABNORMAL) CBC (with Diff) (10/07/2024 12:06 AM EST) [facility] White Blood Cell 11.27(H) 4.00 - 9.50 x10(3)/mc L 10/07/2024 12:19 AM [facility] Red Blood Cell 3.47(L) 4.58 - 5.54 x10(6)/mc L 10/07/2024 12:19 AM [facility] Hemoglobin 10.1(L) 13.7 - 16.5 g/dL 10/07/2024 12:19 AM [facility] Hematocrit 30.9(L) 40.5 - 48.5 % 10/07/2024 12:19 AM [facility] Mean Cell Volume 89.0 82.9 - 93.1 fL 10/07/2024 12:19 AM [facility] Mean Cell Hemoglobin 29.1 27.5 - 32.1 pg 10/07/2024 12:19 AM [facility] Mean Cell Hemoglobin Concentration 32.7 32.0 - 35.7 g/dL 10/07/2024 12:19 AM [facility] Platelet 789(H) 145 - 357 x10(3)/mc L 10/07/2024 12:19 AM [facility] Mean Platelet Volume 9.0 7.6 - 12.9 fL 10/07/2024 12:19 AM [facility] RDW Standard Deviation 45.7(H) 36.0 - 45.0 fL 10/07/2024 12:19 AM [facility] RDW coefficient of variation 14.3(H) 11.4 - 13.8 % 10/07/2024 12:19 AM [facility] NRBC% auto 0.0 % 10/07/2024 12:19 AM [facility] NRBC Absolute <0.01 <0.01 x10(3)/mc L 10/07/2024 12:19 AM [facility] Neutrophil % 62.9 % 10/07/2024 12:19 AM [facility] Neutrophil Absolute (ANC) - Automated 7.09(H) 1.70 - 6.10 x10(3)/mc L 10/07/2024 12:19 AM [facility] Lymph % 28.3 % 10/07/2024 12:19 AM [facility] Lymph Absolute 3.19 0.90 - 3.20 x10(3)/mc L 10/07/2024 12:19 AM [facility] Monocyte % 5.7 % 10/07/2024 12:19 AM [facility] Monocyte Absolute 0.64 0.30 - 0.90 x10(3)/mc L 10/07/2024 12:19 AM [facility] Eos % 1.5 % 10/07/2024 12:19 AM [facility] Eos Absolute 0.17 0.00 - 0.40 x10(3)/mc L 10/07/2024 12:19 AM [facility] Basophil % 0.7 % 10/07/2024 12:19 AM [facility] Baso Absolute 0.08 0.00 - 0.10 x10(3)/mc L 10/07/2024 12:19 AM [facility] Immature Gran % 0.9 % 12:19 AM [facility] Immature Gran Absolute 0.10(H) 0.00 - 0.04 x10(3)/mc L 10/07/2024 12:19 AM [facility] Blood VENOUS BLOOD SPECIMEN / Unknown Venipuncture / Unknown 10/07/2024 12:06 AM EST 10/07/2024 12:11 AM EST Hayley Torres MD HEMATOLOGY ORDERABLE S [facility] [place] [address] * (ABNORMAL) Basic Metabolic Panel (10/07/2024 12:06 AM EST) Glucose 145 65 - 199 mg/dL 10/07/2024 12:40 AM [facility] Comment:Glucose Concentratio n >=200 mg/dL plus symptoms is consistent with Diabetes Mellitus. Blood Urea Nitrogen 18 10 - 20 mg/dL 10/07/2024 12:40 AM [facility] Creatinine 0.61(L) 0.80 - 1.50 mg/dL 10/07/2024 12:40 AM [facility] Sodium 139 135 - 145 mMol/L 10/07/2024 12:40 AM [facility] Potassium 4.0 3.5 - 5.0 mMol/L 10/07/2024 12:40 AM [facility] Chloride 104 98 - 107 mMol/L 10/07/2024 12:40 AM [facility] Carbon Dioxide 25 22 - 31 mMol/L 10/07/2024 12:40 AM [facility] Anion Gap 10 5 - 15 mMol/L 10/07/2024 12:40 AM [facility] Calcium 9.0 8.5 - 10.5 mg/dL 10/07/2024 12:40 AM [facility] Est Glomerular Filtration Rate - Male 117 mL/min/1. 73 m?? 10/07/2024 12:40 AM EST [facility] Comment: This [...] AM EST Hayley Torres MD CHEMISTRY ORDERABLES [facility] [place] [address] * Phosphorus (10/07/2024 12:06 AM EST) Phosphorus 4.2 2.5 - 4.5 mg/dL 10/07/2024 12:40 AM EST [facility] Blood VENOUS BLOOD SPECIMEN / Unknown Venipuncture / Unknown 10/07/2024 12:06 AM EST 10/07/2024 12:11 AM EST Hayley Torres MD CHEMISTRY ORDERABLES [facility] [place] [address] * Magnesium (10/07/2024 12:06 AM EST) Magnesium 0.85 0.69 - 1.07 mMol/L 10/07/2024 12:40 AM EST [facility] Blood VENOUS BLOOD SPECIMEN / Unknown Venipuncture / Unknown 10/07/2024 12:06 AM EST 10/07/2024 12:11 AM EST Hayley Torres MD CHEMISTRY ORDERABLES Performing Organization Address [facility] Co de Phone Number [facility] [place] [address] * POC, GLUCOSE (10/07/2024 12:04 AM EST) Glucometer, POC 149 65 - 199 mg/dL 10/07/2024 12:04 AM EST [facility] Comment:Supplemental ranges: <140 mg/dL before meals <180 mg/dL all other times of the day. Blood CAPILLARY BLOOD / Unknown 10/07/2024 12:04 AM EST 10/07/2024 12:05 AM EST Hayley Torres MD POINT OF CARE TEST O RDERABLES Performing Organization Address [facility] Co de Phone Number [facility] [place] [address] * POC, GLUCOSE (10/06/2024 7:24 PM EST) Glucometer, POC 151 65 - 199 mg/dL 10/06/2024 7:24 PM EST [facility] Comment:Supplemental ranges: <140 mg/dL before meals <180 mg/dL all other times of the day. Blood CAPILLARY BLOOD / Unknown 10/06/2024 7:24 PM EST 10/06/2024 7:24 PM EST Hayley Torres MD POINT OF CARE TEST O GILDA Performing Organization Address City/[facility] Co de Phone Number [facility] [place] [address] * POC, GLUCOSE (10/06/2024 5:32 PM EST) Glucometer, POC 126 65 - 199 mg/dL 10/06/2024 5:32 PM EST [facility] Comment:Supplemental ranges: <140 mg/dL before meals <180 mg/dL all other times of the day. Blood CAPILLARY BLOOD / Unknown 10/06/2024 5:32 PM EST 10/06/2024 5:32 PM EST Hayley Torres MD POINT OF CARE TEST O RDERABLES [facility] [place] [address] * XR PICC Placement Over 5 Years with Imaging Guidance (IV Team) (10/06/2024 3:04 PM EST) [place] [employer] Signature WORKSTATION ID [id number] RAD Anatomical Region Laterality Modality N/A Radio [...] who have questions please contact the health manager respiratory care that requested your imaging first. ? Electronically signed by: Charles Hamilton MD, [facility] ??([phone]), at 10/06/2024 3:43 PM Narrative 10/06/2024 3:43 [...] patients who have questions please contactthe health manager respiratory care that requested your imaging first. Hayley Torres MD IMG FLUORO ORDERABLE S * Place PICC Line: Contact Vascular Access Page [phone] Extremity to exclude: No restrictions; Is PICC [...] to the planned procedure. Hand Hygiene: The information delivery analyst did perform hand hygiene prior to line insertion. Catheter type: PICC Lot number: [id number] Procedure Technique: Skin was prepped with chlorhexidine. [...] * POC, GLUCOSE (10/06/2024 12:12 PM EST) [facility] Signature Glucometer, POC 137 65 - 199 mg/dL 10/06/2024 12:12 PM EST [facility] Comment:Supplemental ranges: <140 mg/dL before meals <180 mg/dL all other times of the day. Blood CAPILLARY BLOOD / Unknown 10/06/2024 12:12 PM EST 10/06/2024 12:12 PM EST Hayley Torres MD POINT OF CARE TEST O RDERABLES [facility] [place] [address] * (ABNORMAL) POC, GLUCOSE (10/06/2024 7:34 AM EST) Glucometer, POC 209(H) 65 - 199 mg/dL 10/06/2024 7:34 AM EST [facility] Comment:Supplemental ranges: <140 mg/dL before meals <180 mg/dL all other times of the day. Blood CAPILLARY BLOOD / Unknown 10/06/2024 7:34 AM EST 10/06/2024 7:34 AM EST Hayley Torres MD POINT OF CARE TEST O GILDA Performing Organization Address City/[facility]/ZIP Co de Phone Number [facility] [place] [address] * POC, GLUCOSE (10/06/2024 3:29 AM EST) Glucometer, POC 151 65 - 199 mg/dL 10/06/2024 3:29 AM EST [facility] Comment:Supplemental ranges: <140 mg/dL before meals <180 mg/dL all other times of the day. Blood CAPILLARY BLOOD / Unknown 10/06/2024 3:29 AM EST 10/06/2024 3:29 AM EST Hayley Torres MD POINT OF CARE TEST O GILDA Performing Organization Address City/[facility]/ZIP Co de Phone Number [facility] [place] [address] * Vancomycin Level, Random (10/06/2024 12:03 AM EST) Vancomycin, Random 20.5 mg/L 2023 9:00 AM EST [facility] Comment:This level is for de termination of the patient's vancomycin isfy-kmoth-lqs-curve (AUC) value. Contact the inpatient pharmacy for interpretation. Blood VENOUS BLOOD SPECIMEN / Unknown Venipuncture / Unknown 10/06/2024 12:03 AM EST 10/06/2024 12:15 AM EST Hayley Torres MD CHEMISTRY ORDERABLES [facility] [place] [address] * (ABNORMAL) CBC (with Diff) (10/06/2024 12:03 AM EST) White Blood Cell 12.26(H) 4.00 - 9.50 x10(3)/mc L 10/06/2024 12:19 AM [facility] Red Blood Cell 3.49(L) 4.58 - 5.54 x10(6)/mc L 10/06/2024 12:19 AM [facility] Hemoglobin 10.1(L) 13.7 - 16.5 g/dL 10/06/2024 12:19 AM [facility] Hematocrit 30.9(L) 40.5 - 48.5 % 10/06/2024 12:19 AM [facility] Mean Cell Volume 88.5 82.9 - 93.1 fL 10/06/2024 12:19 AM [facility] Mean Cell Hemoglobin 28.9 27.5 - 32.1 pg 10/06/2024 12:19 AM [facility] Mean Cell Hemoglobin Concentration 32.7 32.0 - 35.7 g/dL 10/06/2024 12:19 AM [facility] Platelet 772(H) 145 - 357 x10(3)/mc L 10/06/2024 12:19 AM [facility] Mean Platelet Volume 9.0 7.6 - 12.9 fL 10/06/2024 12:19 AM [facility] RDW Standard Deviation 46.0(H) 36.0 - 45.0 fL 10/06/2024 12:19 AM [facility] RDW coefficient of variation 14.5(H) 11.4 - 13.8 % 10/06/2024 12:19 AM [facility] NRBC% auto 0.0 % 10/06/2024 12:19 AM [facility] NRBC Absolute <0.01 <0.01 x10(3)/mc L 10/06/2024 12:19 AM [facility] Neutrophil % 66.7 % 10/06/2024 12:19 AM [facility] Neutrophil Absolute (ANC) - Automated 8.18(H) 1.70 - 6.10 x10(3)/mc L 10/06/2024 12:19 AM [facility] Lymph % 24.1 % 10/06/2024 12:19 AM [facility] Lymph Absolute 2.95 0.90 - 3.20 x10(3)/mc L 10/06/2024 12:19 AM [facility] Monocyte % 6.2 % 10/06/2024 12:19 AM [facility] Monocyte Absolute 0.76 0.30 - 0.90 x10(3)/mc L 10/06/2024 12:19 AM [facility] Eos % 1.3 % 10/06/2024 12:19 AM [facility] Eos Absolute 0.16 0.00 - 0.40 x10(3)/mc L 10/06/2024 12:19 AM [facility] Basophil % 0.5 % 10/06/2024 12:19 AM [facility] Baso Absolute 0.06 0.00 - 0.10 x10(3)/mc L 10/06/2024 12:19 AM [facility] Immature Gran % 1.2 % 12:19 AM [facility] Immature Gran Absolute 0.15(H) 0.00 - 0.04 x10(3)/mc L 10/06/2024 12:19 AM [facility] Blood VENOUS BLOOD SPECIMEN / Unknown Venipuncture / Unknown 10/06/2024 12:03 AM EST 10/06/2024 12:15 AM EST Hayley Torres MD HEMATOLOGY ORDERABLE S [facility] [place] [address] * Basic Metabolic Panel (10/06/2024 12:03 AM EST) Glucose 94 65 - 199 mg/dL 10/06/2024 12:44 AM [facility] Comment:Glucose Concentratio n >=200 mg/dL plus symptoms is consistent with Diabetes Mellitus. Blood Urea Nitrogen 17 10 - 20 mg/dL 10/06/2024 12:44 AM [facility] Creatinine 0.85 0.80 - 1.50 mg/dL 10/06/2024 12:44 AM [facility] Sodium 139 135 - 145 mMol/L 10/06/2024 12:44 AM [facility] Potassium 4.3 3.5 - 5.0 mMol/L 10/06/2024 12:44 AM [facility] Chloride 103 98 - 107 mMol/L 10/06/2024 12:44 AM [facility] Carbon Dioxide 22 22 - 31 mMol/L 10/06/2024 12:44 AM [facility] Anion Gap 14 5 - 15 mMol/L 10/06/2024 12:44 AM [facility] Calcium 8.8 8.5 - 10.5 mg/dL 10/06/2024 12:44 AM [facility] Est Glomerular Filtration Rate - Male 106 mL/min/1. 73 m?? 10/06/2024 12:44 AM [facility] Comment: This patient's estimated GFR was [...] AM EST Hayley Torres MD CHEMISTRY ORDERABLES [facility] [place] [address] * Phosphorus (10/06/2024 12:03 AM EST) Phosphorus 4.3 2.5 - 4.5 mg/dL 10/06/2024 12:44 AM EST [facility] Blood VENOUS BLOOD SPECIMEN / Unknown Venipuncture / Unknown 10/06/2024 12:03 AM EST 10/06/2024 12:15 AM EST Hayley Torres MD CHEMISTRY ORDERABLES Performing Organization Address City/[facility]/ZIP Co de Phone Number [facility] [place] [address] * Magnesium (10/06/2024 12:03 AM EST) Magnesium 0.83 0.69 - 1.07 mMol/L 10/06/2024 12:44 AM EST [facility] Blood VENOUS BLOOD SPECIMEN / Unknown Venipuncture / Unknown 10/06/2024 12:03 AM EST 10/06/2024 12:15 AM EST Hayley Torres MD CHEMISTRY ORDERABLES [facility] [place] [address] * POC, GLUCOSE (10/06/2024 12:02 AM EST) Glucometer, POC 98 65 - 199 mg/dL 10/06/2024 12:02 AM EST [facility] Comment:Supplemental ranges: <140 mg/dL before meals <180 mg/dL all other times of the day. Blood CAPILLARY BLOOD / Unknown 10/06/2024 12:02 AM EST 10/06/2024 12:02 AM EST Hayley Torres MD POINT OF CARE TEST O GILDA Performing Organization Address City/[facility]/ZIP Co de Phone Number [facility] [place] [address] * POC, GLUCOSE (10/05/2024 7:22 PM EST) Glucometer, POC 186 65 - 199 mg/dL 10/05/2024 7:23 PM EST [facility] Comment:Supplemental ranges: <140 mg/dL before meals <180 mg/dL all other times of the day. Blood CAPILLARY BLOOD / Unknown 10/05/2024 7:22 PM EST 10/05/2024 7:23 PM EST Hayley Torres MD POINT OF CARE TEST O GILDA Performing Organization Address [facility]/ZIP Co de Phone Number [facility] [place] [address] * POC, GLUCOSE (10/05/2024 5:35 PM EST) Glucometer, POC 177 65 - 199 mg/dL 10/05/2024 5:35 PM EST [facility] Comment:Supplemental ranges: <140 mg/dL before meals <180 mg/dL all other times of the day. Blood CAPILLARY BLOOD / Unknown 10/05/2024 5:35 PM EST 10/05/2024 5:35 PM EST Hayley Torres MD POINT OF CARE TEST O GILDA [facility] [place] [address] * POC, GLUCOSE (10/05/2024 3:57 PM EST) Glucometer, POC 141 65 - 199 mg/dL 10/05/2024 3:57 PM EST [facility] Comment:Supplemental ranges: <140 mg/dL before meals <180 mg/dL all other times of the day. Blood CAPILLARY BLOOD / Unknown 10/05/2024 3:57 PM EST 10/05/2024 3:57 PM EST Hayley Torres MD POINT OF CARE TEST O GILDA Performing Organization Address City/[facility]/ZIP Co de Phone Number [facility] [place] [address] * POC, GLUCOSE (10/05/2024 11:50 AM EST) Glucometer, POC 134 65 - 199 mg/dL 10/05/2024 11:50 AM EST [facility] Comment:Supplemental ranges: <140 mg/dL before meals <180 mg/dL all other times of the day. Blood CAPILLARY BLOOD / Unknown 10/05/2024 11:50 AM EST 10/05/2024 11:50 AM EST Hayley Torres MD POINT OF CARE TEST O GILDA Performing Organization Address [facility] Co de Phone Number [facility] [place] [address] * POC, GLUCOSE (10/05/2024 7:51 AM EST) Glucometer, POC 114 65 - 199 mg/dL 10/05/2024 7:51 AM EST [facility] Comment:Supplemental ranges: <140 mg/dL before meals <180 mg/dL all other times of the day. Blood CAPILLARY BLOOD / Unknown 10/05/2024 7:51 AM EST 10/05/2024 7:51 AM EST Hayley Torres MD POINT OF CARE TEST O GILDA Performing Organization Address City/[facility]/ZIP Co de Phone Number [facility] [place] [address] * POC, GLUCOSE (10/05/2024 4:18 AM EST) Pathologist [facility] Glucometer, POC 147 65 - 199 mg/dL 10/05/2024 4:18 AM EST [facility] Comment:Supplemental ranges: <140 mg/dL before meals <180 mg/dL all other times of the day. Blood CAPILLARY BLOOD / Unknown 10/05/2024 4:18 AM EST 10/05/2024 4:18 AM EST Hayley Torres MD POINT OF CARE TEST O RDERABLES [facility] [place] [address] * (ABNORMAL) CBC (with Diff) (10/04/2024 11:50 PM EST) [facility] White Blood Cell 12.73(H) 4.00 - 9.50 x10(3)/mc L 10/05/2024 12:10 AM [facility] Red Blood Cell 3.45(L) 4.58 - 5.54 x10(6)/mc L 10/05/2024 12:10 AM [facility] Hemoglobin 9.8(L) 13.7 - 16.5 g/dL 10/05/2024 12:10 AM [facility] Hematocrit 30.6(L) 40.5 - 48.5 % 10/05/2024 12:10 AM [facility] Mean Cell Volume 88.7 82.9 - 93.1 fL 10/05/2024 12:10 AM [facility] Mean Cell Hemoglobin 28.4 27.5 - 32.1 pg 10/05/2024 12:10 AM [facility] Mean Cell Hemoglobin Concentration 32.0 32.0 - 35.7 g/dL 10/05/2024 12:10 AM [facility] Platelet 709(H) 145 - 357 x10(3)/mc L 10/05/2024 12:10 AM [facility] Mean Platelet Volume 8.9 7.6 - 12.9 fL 10/05/2024 12:10 AM [facility] RDW Standard Deviation 45.4(H) 36.0 - 45.0 fL 10/05/2024 12:10 AM [facility] RDW coefficient of variation 14.3(H) 11.4 - 13.8 % 10/05/2024 12:10 AM [facility] NRBC% auto 0.0 % 10/05/2024 12:10 AM [facility] NRBC Absolute <0.01 <0.01 x10(3)/mc L 10/05/2024 12:10 AM [facility] Neutrophil % 68.5 % 10/05/2024 12:10 AM [facility] Neutrophil Absolute (ANC) - Automated 8.72(H) 1.70 - 6.10 x10(3)/mc L 10/05/2024 12:10 AM [facility] Lymph % 21.3 % 10/05/2024 12:10 AM [facility] Lymph Absolute 2.71 0.90 - 3.20 x10(3)/mc L 10/05/2024 12:10 AM [facility] Monocyte % 5.5 % 10/05/2024 12:10 AM [facility] Monocyte Absolute 0.70 0.30 - 0.90 x10(3)/mc L 10/05/2024 12:10 AM [facility] Eos % 1.6 % 10/05/2024 12:10 AM [facility] Eos Absolute 0.20 0.00 - 0.40 x10(3)/mc L 10/05/2024 12:10 AM [facility] Basophil % 0.5 % 10/05/2024 12:10 AM [facility] Baso Absolute 0.07 0.00 - 0.10 x10(3)/mc L 10/05/2024 12:10 AM [facility] Immature Gran % 2.6 % 12:10 AM [facility] Immature Gran Absolute 0.33(H) 0.00 - 0.04 x10(3)/mc L 10/05/2024 12:10 AM [facility] Blood VENOUS BLOOD SPECIMEN / Unknown Venipuncture / Unknown 10/04/2024 11:50 PM EST 10/05/2024 12:03 AM EST Hayley Torres MD HEMATOLOGY ORDERABLE S [facility] [place] [address] * (ABNORMAL) Basic Metabolic Panel (10/04/2024 11:50 PM EST) Glucose 104 65 - 199 mg/dL 10/05/2024 12:35 AM [facility] Comment:Glucose Concentratio n >=200 mg/dL plus symptoms is consistent with Diabetes Mellitus. Blood Urea Nitrogen 13 10 - 20 mg/dL 10/05/2024 12:35 AM [facility] Creatinine 0.55(L) 0.80 - 1.50 mg/dL 10/05/2024 12:35 AM [facility] Sodium 140 135 - 145 mMol/L 10/05/2024 12:35 AM [facility] Potassium 3.9 3.5 - 5.0 mMol/L 10/05/2024 12:35 AM [facility] Chloride 105 98 - 107 mMol/L 10/05/2024 12:35 AM [facility] Carbon Dioxide 24 22 - 31 mMol/L 10/05/2024 12:35 AM [facility] Anion Gap 11 5 - 15 mMol/L 10/05/2024 12:35 AM [facility] Calcium 9.0 8.5 - 10.5 mg/dL 10/05/2024 12:35 AM [facility] Est Glomerular Filtration Rate - Male 121 mL/min/1. 73 m?? 10/05/2024 12:35 AM EST [facility] Comment: This [...] Torres MD CHEMISTRY ORDERABLES Performing Organization Address City/[facility]/ZIP Co de Phone Number [facility] [place] [address] * Phosphorus (10/04/2024 11:50 PM EST) Phosphorus 4.2 2.5 - 4.5 mg/dL 10/05/2024 12:35 AM EST [facility] Blood VENOUS BLOOD SPECIMEN / Unknown Venipuncture / Unknown 10/04/2024 11:50 PM EST 10/05/2024 12:03 AM EST Hayley Torres MD CHEMISTRY ORDERABLES [facility] [place] [address] * Magnesium (10/04/2024 11:50 PM EST) Magnesium 0.89 0.69 - 1.07 mMol/L 10/05/2024 12:35 AM EST [facility] Blood VENOUS BLOOD SPECIMEN / Unknown Venipuncture / Unknown 10/04/2024 11:50 PM EST 10/05/2024 12:03 AM EST Hayley Torres MD CHEMISTRY ORDERABLES Performing Organization Address [facility] Co de Phone Number [facility] [place] [address] * POC, GLUCOSE (10/04/2024 11:36 PM EST) Glucometer, POC 121 65 - 199 mg/dL 10/04/2024 11:36 PM EST [facility] Comment:Supplemental ranges: <140 mg/dL before meals <180 mg/dL all other times of the day. Blood CAPILLARY BLOOD / Unknown 10/04/2024 11:36 PM EST 10/04/2024 11:36 PM EST Hayley Torres MD POINT OF CARE TEST O RDERABLES Performing Organization Address [facility] de Phone Number [facility] [place] [address] * POC, GLUCOSE (10/04/2024 7:32 PM EST) Glucometer, POC 163 65 - 199 mg/dL 10/04/2024 7:32 PM EST [facility] Comment:Supplemental ranges: <140 mg/dL before meals <180 mg/dL all other times of the day. Blood CAPILLARY BLOOD / Unknown 10/04/2024 7:32 PM EST 10/04/2024 7:32 PM EST Hayley Torres MD POINT OF CARE TEST O GILDA Performing Organization Address [facility] Co de Phone Number [facility] [place] [address] * EKG 12 Lead (10/04/2024 7:14 PM EST) Ventricular rate 81 BPM MUSE SYSTEM Atrial Rate 81 BPM MUSE SYSTEM P-R Interval 174 ms MUSE SYSTEM QRS Duration 112 ms MUSE SYSTEM Q-T Interval 422 ms MUSE SYSTEM QTC Calculated (Bezet) 490 ms MUSE SYSTEM Calculated P [place] 34 degrees MUSE SYSTEM Calculated R [place] 11 degrees MUSE SYSTEM Calculated T [place] 59 degrees MUSE SYSTEM INTERPRETATION Normal sinus rhythm Cannot rule out Inferior infarct , age undetermined Nonspecific T wave abnormality Borderline ECG When compared with ECG of 29-MAY-2024 14:51, Nonspecific T wave abnormality now evident in Lateral leads Confirmed by MD Robert, Deandre Guadarrama ([id number]) on 10/05/2024 3:35:42 PM MUSE SYSTEM 10/04/2024 7:14 PM EST 10/05/2024 3:35 PM EST Hayley Torres MD ECG ORDERABLES MUSE SYSTEM * POC, GLUCOSE (10/04/2024 5:07 PM EST) Glucometer, POC 95 65 - 199 mg/dL 10/04/2024 5:07 PM EST [facility] Comment:Supplemental ranges: <140 mg/dL before meals <180 mg/dL all other times of the day. Blood CAPILLARY BLOOD / Unknown 10/04/2024 5:07 PM EST 10/04/2024 5:07 PM EST Hayley Torres MD POINT OF CARE TEST O RDERABLES Performing Organization Address [facility]/ZIP Co de Phone Number [facility] [place] [address] * POC, GLUCOSE (10/04/2024 4:49 PM EST) Glucometer, POC 70 65 - 199 mg/dL 10/04/2024 4:50 PM EST [facility] Comment:Supplemental ranges: <140 mg/dL before meals <180 mg/dL all other times of the day. Blood CAPILLARY BLOOD / Unknown 10/04/2024 4:49 PM EST 10/04/2024 4:50 PM EST Hayley Torres MD POINT OF CARE TEST O RDERAHERNANDEZ Performing Organization Address City/[facility]/ZIP Co de Phone Number [facility] [place] [address] * POC, GLUCOSE (10/04/2024 11:49 AM EST) Glucometer, POC 93 65 - 199 mg/dL 10/04/2024 11:49 AM EST [facility] Comment:Supplemental ranges: <140 mg/dL before meals <180 mg/dL all other times of the day. Blood CAPILLARY BLOOD / Unknown 10/04/2024 11:49 AM EST 10/04/2024 11:49 AM EST Hayley Torres MD POINT OF CARE TEST O RDERABLES Performing Organization Address [facility] Co de Phone Number [facility] [place] [address] * Vancomycin, trough (10/04/2024 7:53 AM EST) [facility] Vancomycin, Trough 19.8 10.0 - 20.0 mg/L 10/04/2024 9:16 AM EST [facility] Comment: Varies according to infection source. Blood VENOUS BLOOD SPECIMEN / Unknown Venipuncture / Unknown 10/04/2024 7:53 AM EST 10/04/2024 8:11 AM EST Hayley Torres MD CHEMISTRY ORDERABLES Performing Organization Address [facility] Co de Phone Number [facility] [place] [address] * POC, GLUCOSE (10/04/2024 7:51 AM EST) Glucometer, POC 105 65 - 199 mg/dL 10/04/2024 7:52 AM EST [facility] Comment:Supplemental ranges: <140 mg/dL before meals <180 mg/dL all other times of the day. Blood CAPILLARY BLOOD / Unknown 10/04/2024 7:51 AM EST 10/04/2024 7:52 AM EST Hayley Torres MD POINT OF CARE TEST O RDERABLES Performing Organization Address City/[facility]/ZIP Co de Phone Number [facility] [place] [address] * POC, GLUCOSE (10/04/2024 3:53 AM EST) Pathologist [facility] Glucometer, POC 90 65 - 199 mg/dL 10/04/2024 3:53 AM EST [facility] Comment:Supplemental ranges: <140 mg/dL before meals <180 mg/dL all other times of the day. Blood CAPILLARY BLOOD / Unknown 10/04/2024 3:53 AM EST 10/04/2024 3:53 AM EST Hayley Torres MD POINT OF CARE TEST O RDERABLES [facility] [place] [address] * (ABNORMAL) CBC (with Diff) (10/04/2024 12:08 AM EST) [facility] White Blood Cell 12.58(H) 4.00 - 9.50 x10(3)/mc L 10/04/2024 12:51 AM [facility] Red Blood Cell 3.28(L) 4.58 - 5.54 x10(6)/mc L 10/04/2024 12:51 AM [facility] Hemoglobin 9.4(L) 13.7 - 16.5 g/dL 10/04/2024 12:51 AM [facility] Hematocrit 28.8(L) 40.5 - 48.5 % 10/04/2024 12:51 AM [facility] Mean Cell Volume 87.8 82.9 - 93.1 fL 10/04/2024 12:51 AM [facility] Mean Cell Hemoglobin 28.7 27.5 - 32.1 pg 10/04/2024 12:51 AM [facility] Mean Cell Hemoglobin Concentration 32.6 32.0 - 35.7 g/dL 10/04/2024 12:51 AM [facility] Platelet 670(H) 145 - 357 x10(3)/mc L 10/04/2024 12:51 AM [facility] Mean Platelet Volume 9.1 7.6 - 12.9 fL 10/04/2024 12:51 AM [facility] RDW Standard Deviation 44.8 36.0 - 45.0 fL 10/04/2024 12:51 AM [facility] RDW coefficient of variation 13.9(H) 11.4 - 13.8 % 10/04/2024 12:51 AM [facility] NRBC% auto 0.0 % 10/04/2024 12:51 AM [facility] NRBC Absolute <0.01 <0.01 x10(3)/mc L 10/04/2024 12:51 AM [facility] Neutrophil % 60.3 % 10/04/2024 12:51 AM [facility] Neutrophil Absolute (ANC) - Automated 7.57(H) 1.70 - 6.10 x10(3)/mc L 10/04/2024 12:51 AM [facility] Lymph % 27.4 % 10/04/2024 12:51 AM [facility] Lymph Absolute 3.45(H) 0.90 - 3.20 x10(3)/mc L 10/04/2024 12:51 AM [facility] Monocyte % 5.4 % 10/04/2024 12:51 AM [facility] Monocyte Absolute 0.68 0.30 - 0.90 x10(3)/mc L 10/04/2024 12:51 AM [facility] Eos % 1.5 % 10/04/2024 12:51 AM [facility] Eos Absolute 0.19 0.00 - 0.40 x10(3)/mc L 10/04/2024 12:51 AM [facility] Basophil % 0.6 % 10/04/2024 12:51 AM [facility] Baso Absolute 0.08 0.00 - 0.10 x10(3)/mc L 10/04/2024 12:51 AM [facility] Immature Gran % 4.8 % 12:51 AM [facility] Immature Gran Absolute 0.61(H) 0.00 - 0.04 x10(3)/mc L 10/04/2024 12:51 AM [facility] Blood VENOUS BLOOD SPECIMEN / Unknown Venipuncture / Unknown 10/04/2024 12:08 AM EST 10/04/2024 12:15 AM EST Hayley Torres MD HEMATOLOGY ORDERABLE S [facility] [place] [address] * (ABNORMAL) Basic Metabolic Panel (10/04/2024 12:08 AM EST) Glucose 135 65 - 199 mg/dL 10/04/2024 12:53 AM [facility] Comment:Glucose Concentratio n >=200 mg/dL plus symptoms is consistent with Diabetes Mellitus. Blood Urea Nitrogen 19 10 - 20 mg/dL 10/04/2024 12:53 AM [facility] Creatinine 0.56(L) 0.80 - 1.50 mg/dL 10/04/2024 12:53 AM [facility] Sodium 138 135 - 145 mMol/L 10/04/2024 12:53 AM [facility] Potassium 4.4 3.5 - 5.0 mMol/L 10/04/2024 12:53 AM [facility] Chloride 105 98 - 107 mMol/L 10/04/2024 12:53 AM [facility] Carbon Dioxide 24 22 - 31 mMol/L 10/04/2024 12:53 AM [facility] Anion Gap 9 5 - 15 mMol/L 10/04/2024 12:53 AM [facility] Calcium 8.7 8.5 - 10.5 mg/dL 10/04/2024 12:53 AM [facility] Est Glomerular Filtration Rate - Male 120 mL/min/1. 73 m?? 10/04/2024 12:53 AM EST [facility] Comment: This [...] AM EST Hayley Torres MD CHEMISTRY ORDERABLES [facility] [place] [address] * Phosphorus (10/04/2024 12:08 AM EST) Phosphorus 3.7 2.5 - 4.5 mg/dL 10/04/2024 12:53 AM EST [facility] Blood VENOUS BLOOD SPECIMEN / Unknown Venipuncture / Unknown 10/04/2024 12:08 AM EST 10/04/2024 12:15 AM EST Hayley Torres MD CHEMISTRY ORDERABLES [facility] [place] [address] * Magnesium (10/04/2024 12:08 AM EST) Magnesium 0.89 0.69 - 1.07 mMol/L 10/04/2024 12:53 AM EST [facility] Blood VENOUS BLOOD SPECIMEN / Unknown Venipuncture / Unknown 10/04/2024 12:08 AM EST 10/04/2024 12:15 AM EST Haylye Torres MD CHEMISTRY ORDERABLES Performing Organization Address [facility] Co de Phone Number [facility] [place] [address] * POC, GLUCOSE (10/04/2024 12:01 AM EST) Glucometer, POC 132 65 - 199 mg/dL 10/04/2024 12:02 AM EST [facility] Comment:Supplemental ranges: <140 mg/dL before meals <180 mg/dL all other times of the day. Blood CAPILLARY BLOOD / Unknown 10/04/2024 12:01 AM EST 10/04/2024 12:02 AM EST Hayley Torres MD POINT OF CARE TEST O RDERABLES Performing Organization Address [facility] Co de Phone Number [facility] [place] [address] * POC, GLUCOSE (10/03/2024 7:56 PM EST) Glucometer, POC 123 65 - 199 mg/dL 10/03/2024 7:56 PM EST [facility] Comment:Supplemental ranges: <140 mg/dL before meals <180 mg/dL all other times of the day. Blood CAPILLARY BLOOD / Unknown 10/03/2024 7:56 PM EST 10/03/2024 7:57 PM EST Hayley Torres MD POINT OF CARE TEST O RDERAHERNANDEZ Performing Organization Address City/[facility] Co de Phone Number [facility] [place] [address] * POC, GLUCOSE (10/03/2024 5:29 PM EST) Glucometer, POC 182 65 - 199 mg/dL 10/03/2024 5:30 PM EST [facility] Comment:Supplemental ranges: <140 mg/dL before meals <180 mg/dL all other times of the day. Blood CAPILLARY BLOOD / Unknown 10/03/2024 5:29 PM EST 10/03/2024 5:30 PM EST Hayley Torres MD POINT OF CARE TEST O RDTYESHA Performing Organization Address City/[facility]/ZIP Co de Phone Number [facility] [place] [address] * POC, GLUCOSE (10/03/2024 12:54 PM EST) Glucometer, POC 128 65 - 199 mg/dL 10/03/2024 12:54 PM EST [facility] Comment:Supplemental ranges: <140 mg/dL before meals <180 mg/dL all other times of the day. Blood CAPILLARY BLOOD / Unknown 10/03/2024 12:54 PM EST 10/03/2024 12:54 PM EST Hayley Torres MD POINT OF CARE TEST O GILDA Performing Organization Address [facility] Co de Phone Number [facility] [place] [address] * POC, GLUCOSE (10/03/2024 7:59 AM EST) Glucometer, POC 115 65 - 199 mg/dL 10/03/2024 7:59 AM EST [facility] Comment:Supplemental ranges: <140 mg/dL before meals <180 mg/dL all other times of the day. Blood CAPILLARY BLOOD / Unknown 10/03/2024 7:59 AM EST 10/03/2024 7:59 AM EST Hayley Torres MD POINT OF CARE TEST O RDTYESHA Performing Organization Address City/[facility]/ZIP Co de Phone Number [facility] [place] [address] * POC, GLUCOSE (10/03/2024 5:32 AM EST) Glucometer, POC 119 65 - 199 mg/dL 10/03/2024 5:32 AM EST [facility] Comment:Supplemental ranges: <140 mg/dL before meals <180 mg/dL all other times of the day. Blood CAPILLARY BLOOD / Unknown 10/03/2024 5:32 AM EST 10/03/2024 5:32 AM EST Hayley Torres MD POINT OF CARE TEST O GILDA Performing Organization Address City/[facility] Co de Phone Number [facility] [place] [address] * POC, GLUCOSE (10/03/2024 4:16 AM EST) Glucometer, POC 152 65 - 199 mg/dL 10/03/2024 4:17 AM EST [facility] Comment:Supplemental ranges: <140 mg/dL before meals <180 mg/dL all other times of the day. Blood CAPILLARY BLOOD / Unknown 10/03/2024 4:16 AM EST 10/03/2024 4:17 AM EST Hayley Torres MD POINT OF CARE TEST O GILDA Performing Organization Address [facility] Co de Phone Number [facility] [place] [address] * (ABNORMAL) POC, GLUCOSE (10/03/2024 2:02 AM EST) Glucometer, POC 225(H) 65 - 199 mg/dL 10/03/2024 2:02 AM EST [facility] Comment:Supplemental ranges: <140 mg/dL before meals <180 mg/dL all other times of the day. Blood CAPILLARY BLOOD / Unknown 10/03/2024 2:02 AM EST 10/03/2024 2:02 AM EST Hayley Torres MD POINT OF CARE TEST O GILDA Performing Organization Address City/[facility]/ZIP Co de Phone Number [facility] [place] [address] * (ABNORMAL) CBC (with Diff) (10/03/2024 12:27 AM EST) [facility] White Blood Cell 15.33(H) 4.00 - 9.50 x10(3)/mc L 10/03/2024 12:51 AM [facility] Red Blood Cell 3.59(L) 4.58 - 5.54 x10(6)/mc L 10/03/2024 12:51 AM [facility] Hemoglobin 10.4(L) 13.7 - 16.5 g/dL 10/03/2024 12:51 AM [facility] Hematocrit 31.2(L) 40.5 - 48.5 % 10/03/2024 12:51 AM [facility] Mean Cell Volume 86.9 82.9 - 93.1 fL 10/03/2024 12:51 AM [facility] Mean Cell Hemoglobin 29.0 27.5 - 32.1 pg 10/03/2024 12:51 AM [facility] Mean Cell Hemoglobin Concentration 33.3 32.0 - 35.7 g/dL 10/03/2024 12:51 AM [facility] Platelet 693(H) 145 - 357 x10(3)/mc L 10/03/2024 12:51 AM [facility] Mean Platelet Volume 9.2 7.6 - 12.9 fL 10/03/2024 12:51 AM [facility] RDW Standard Deviation 42.4 36.0 - 45.0 fL 10/03/2024 12:51 AM [facility] RDW coefficient of variation 13.6 11.4 - 13.8 % 10/03/2024 12:51 AM [facility] NRBC% auto 0.0 % 10/03/2024 12:51 AM [facility] NRBC Absolute <0.01 <0.01 x10(3)/mc L 10/03/2024 12:51 AM [facility] Neutrophil % 77.1 % 10/03/2024 12:51 AM [facility] Neutrophil Absolute (ANC) - Automated 11.83(H) 1.70 - 6.10 x10(3)/mc L 10/03/2024 12:51 AM [facility] Lymph % 13.4 % 10/03/2024 12:51 AM [facility] Lymph Absolute 2.05 0.90 - 3.20 x10(3)/mc L 10/03/2024 12:51 AM EST [facility] Monocyte % 2.9 % 10/03/2024 12:51 AM [facility] Monocyte Absolute 0.45 0.30 - 0.90 x10(3)/mc L 10/03/2024 12:51 AM [facility] Eos % 0.5 % 10/03/2024 12:51 AM [facility] Eos Absolute 0.07 0.00 - 0.40 x10(3)/mc L 10/03/2024 12:51 AM EST [facility] Basophil % 0.4 % 10/03/2024 12:51 AM [facility] Baso Absolute 0.06 0.00 - 0.10 x10(3)/mc L 10/03/2024 12:51 AM EST [facility] Immature Gran % 5.7 % 12:51 AM [facility] Immature Gran Absolute 0.87(H) 0.00 - 0.04 x10(3)/mc L 10/03/2024 12:51 AM EST [facility] Blood VENOUS BLOOD SPECIMEN / Unknown Venipuncture / Unknown 10/03/2024 12:27 AM EST 10/03/2024 12:47 AM EST Hayley Torres MD HEMATOLOGY ORDERABLE S [facility] [place] [address] * (ABNORMAL) Basic Metabolic Panel (10/03/2024 12:27 AM [facility]) Glucose 208(H) 65 - 199 mg/dL 10/03/2024 1:14 AM [facility] Comment:Glucose Concentratio n >=200 mg/dL plus symptoms is consistent with Diabetes Mellitus. Blood Urea Nitrogen 15 10 - 20 mg/dL 10/03/2024 1:14 AM [facility] Creatinine 0.51(L) 0.80 - 1.50 mg/dL 10/03/2024 1:14 AM [facility] Sodium 136 135 - 145 mMol/L 10/03/2024 1:14 AM [facility] Potassium 4.1 3.5 - 5.0 mMol/L 10/03/2024 1:14 AM [facility] Chloride 103 98 - 107 mMol/L 10/03/2024 1:14 AM [facility] Carbon Dioxide 20(L) 22 - 31 mMol/L 10/03/2024 1:14 AM [facility] Anion Gap 13 5 - 15 mMol/L 10/03/2024 1:14 AM [facility] Calcium 8.4(L) 8.5 - 10.5 mg/dL 10/03/2024 1:14 AM [facility] Est Glomerular Filtration Rate - Male 124 mL/min/1. 73 m?? 10/03/2024 1:14 AM [facility] Comment: This patient's estimated GFR was [...] Torres MD CHEMISTRY ORDERABLES Performing Organization Address [facility] Co de Phone Number [facility] [place] [address] * Phosphorus (10/03/2024 12:27 AM EST) Phosphorus 3.5 2.5 - 4.5 mg/dL 10/03/2024 1:14 AM EST [facility] Blood VENOUS BLOOD SPECIMEN / Unknown Venipuncture / Unknown 10/03/2024 12:27 AM EST 10/03/2024 12:47 AM EST Hayley Torres MD CHEMISTRY ORDERABLES Performing Organization Address [facility] Co de Phone Number [facility] [place] [address] * Magnesium (10/03/2024 12:27 AM EST) Magnesium 0.83 0.69 - 1.07 mMol/L 10/03/2024 1:14 AM EST [facility] Blood VENOUS BLOOD SPECIMEN / Unknown Venipuncture / Unknown 10/03/2024 12:27 AM EST 10/03/2024 12:47 AM EST Hayley Torres MD CHEMISTRY ORDERABLES Performing Organization Address City/[facility] Co de Phone Number [facility] [place] [address] * (ABNORMAL) POC, GLUCOSE (10/03/2024 12:13 AM EST) Glucometer, POC 255(H) 65 - 199 mg/dL 10/03/2024 12:14 AM EST [facility] Comment:Supplemental ranges: <140 mg/dL before meals <180 mg/dL all other times of the day. Blood CAPILLARY BLOOD / Unknown 10/03/2024 12:13 AM EST 10/03/2024 12:14 AM EST Hayley Torres MD POINT OF CARE TEST O GILDA Performing Organization Address City/[facility]/ZIP Co de Phone Number [facility] [place] [address] * POC, GLUCOSE (10/02/2024 8:17 PM EST) Glucometer, POC 177 65 - 199 mg/dL 10/02/2024 8:17 PM EST [facility] Comment:Supplemental ranges: <140 mg/dL before meals <180 mg/dL all other times of the day. Blood CAPILLARY BLOOD / Unknown 10/02/2024 8:17 PM EST 10/02/2024 8:17 PM EST Hayley Torres MD POINT OF CARE TEST O GILDA Performing Organization Address [facility] Co de Phone Number [facility] [place] [address] * POC, GLUCOSE (10/02/2024 6:22 PM EST) Glucometer, POC 172 65 - 199 mg/dL 10/02/2024 6:22 PM EST [facility] Comment:Supplemental ranges: <140 mg/dL before meals <180 mg/dL all other times of the day. Blood CAPILLARY BLOOD / Unknown 10/02/2024 6:22 PM EST 10/02/2024 6:22 PM EST Hayley Torres MD POINT OF CARE TEST O GILDA Performing Organization Address City/[facility]/ZIP Co de Phone Number [facility] [place] [address] * POC, GLUCOSE (10/02/2024 5:01 PM EST) Glucometer, POC 104 65 - 199 mg/dL 10/02/2024 5:01 PM EST [facility] Comment:Supplemental ranges: <140 mg/dL before meals <180 mg/dL all other times of the day. Blood CAPILLARY BLOOD / Unknown 10/02/2024 5:01 PM EST 10/02/2024 5:01 PM EST Hayley Torres MD POINT OF CARE TEST O GILDA Performing Organization Address City/[facility]/ZIP Co de Phone Number [facility] [place] [address] * POC, GLUCOSE (10/02/2024 3:05 PM EST) Glucometer, POC 113 65 - 199 mg/dL 10/02/2024 3:06 PM EST [facility] Comment:Supplemental ranges: <140 mg/dL before meals <180 mg/dL all other times of the day. Blood CAPILLARY BLOOD / Unknown 10/02/2024 3:05 PM EST 10/02/2024 3:06 PM EST Hayley Torres MD POINT OF CARE TEST O GILDA Performing Organization Address [facility]/ZIP Co de Phone Number [facility] [place] [address] * POC, GLUCOSE (10/02/2024 11:12 AM EST) Glucometer, POC 146 65 - 199 mg/dL 10/02/2024 11:12 AM EST [facility] Comment:Supplemental ranges: <140 mg/dL before meals <180 mg/dL all other times of the day. Blood CAPILLARY BLOOD / Unknown 10/02/2024 11:12 AM EST 10/02/2024 11:12 AM EST Hayley Torres MD POINT OF CARE TEST O GILDA [facility] [place] [address] * POC, GLUCOSE (10/02/2024 8:12 AM EST) Glucometer, POC 131 65 - 199 mg/dL 10/02/2024 8:12 AM EST [facility] Comment:Supplemental ranges: <140 mg/dL before meals <180 mg/dL all other times of the day. Blood CAPILLARY BLOOD / Unknown 10/02/2024 8:12 AM EST 10/02/2024 8:12 AM EST Hayley Torres MD POINT OF CARE TEST O GILDA Performing Organization Address City/[facility] Co de Phone Number [facility] [place] [address] * POC, GLUCOSE (10/02/2024 4:19 AM EST) Glucometer, POC 131 65 - 199 mg/dL 10/02/2024 4:19 AM EST [facility] Comment:Supplemental ranges: <140 mg/dL before meals <180 mg/dL all other times of the day. Blood CAPILLARY BLOOD / Unknown 10/02/2024 4:19 AM EST 10/02/2024 4:19 AM EST aHyley Torres MD POINT OF CARE TEST O GILDA Performing Organization Address [facility] Co de Phone Number [facility] [place] [address] * Phosphorus (10/02/2024 12:41 AM EST) Phosphorus 4.1 2.5 - 4.5 mg/dL 10/02/2024 1:21 AM EST [facility] Blood VENOUS BLOOD SPECIMEN / Unknown Venipuncture / Unknown 10/02/2024 12:41 AM EST 10/02/2024 12:45 AM EST Hayley Torres MD CHEMISTRY ORDERABLES Performing Organization Address City/[facility] Co de Phone Number [facility] [place] [address] * Magnesium (10/02/2024 12:41 AM EST) Magnesium 0.85 0.69 - 1.07 mMol/L 10/02/2024 1:21 AM [facility] Blood VENOUS BLOOD SPECIMEN / Unknown Venipuncture / Unknown 10/02/2024 12:41 AM EST 10/02/2024 12:45 AM EST Hayley Torres MD CHEMISTRY ORDERABLES [facility] [place] [address] * (ABNORMAL) Basic Metabolic Panel (10/02/2024 12:41 AM EST) Glucose 113 65 - 199 mg/dL 10/02/2024 1:21 AM [facility] Comment:Glucose Concentratio n >=200 mg/dL plus symptoms is consistent with Diabetes Mellitus. Blood Urea Nitrogen 11 10 - 20 mg/dL 10/02/2024 1:21 AM [facility] Creatinine 0.49(L) 0.80 - 1.50 mg/dL 10/02/2024 1:21 AM [facility] Sodium 138 135 - 145 mMol/L 10/02/2024 1:21 AM [facility] Potassium 3.9 3.5 - 5.0 mMol/L 10/02/2024 1:21 AM [facility] Chloride 105 98 - 107 mMol/L 10/02/2024 1:21 AM [facility] Carbon Dioxide 23 22 - 31 mMol/L 10/02/2024 1:21 AM [facility] Anion Gap 10 5 - 15 mMol/L 10/02/2024 1:21 AM [facility] Calcium 8.2(L) 8.5 - 10.5 mg/dL 10/02/2024 1:21 AM [facility] Est Glomerular Filtration Rate - Male 125 mL/min/1. 73 m?? 10/02/2024 1:21 AM [facility] Comment: This patient's estimated GFR was [...] AM EST Hayley Torres MD CHEMISTRY ORDERABLES [facility] [place] [address] * (ABNORMAL) CBC (with Diff) (10/02/2024 12:41 AM EST) White Blood Cell 10.93(H) 4.00 - 9.50 x10(3)/mc L 10/02/2024 1:04 AM [facility] Red Blood Cell 3.30(L) 4.58 - 5.54 x10(6)/mc L 10/02/2024 1:04 AM [facility] Hemoglobin 9.6(L) 13.7 - 16.5 g/dL 10/02/2024 1:04 AM [facility] Hematocrit 28.6(L) 40.5 - 48.5 % 10/02/2024 1:04 AM [facility] Mean Cell Volume 86.7 82.9 - 93.1 fL 10/02/2024 1:04 AM [facility] Mean Cell Hemoglobin 29.1 27.5 - 32.1 pg 10/02/2024 1:04 AM [facility] Mean Cell Hemoglobin Concentration 33.6 32.0 - 35.7 g/dL 10/02/2024 1:04 AM [facility] Platelet 546(H) 145 - 357 x10(3)/mc L 10/02/2024 1:04 AM [facility] Mean Platelet Volume 9.0 7.6 - 12.9 fL 10/02/2024 1:04 AM [facility] RDW Standard Deviation 42.7 36.0 - 45.0 fL 10/02/2024 1:04 AM [facility] RDW coefficient of variation 13.3 11.4 - 13.8 % 10/02/2024 1:04 AM [facility] NRBC% auto 0.0 % 10/02/2024 1:04 AM [facility] NRBC Absolute <0.01 <0.01 x10(3)/mc L 10/02/2024 1:04 AM [facility] Neutrophil % 58.4 % 10/02/2024 1:04 AM [facility] Neutrophil Absolute (ANC) - Automated 6.38(H) 1.70 - 6.10 x10(3)/mc L 10/02/2024 1:04 AM [facility] Lymph % 23.9 % 10/02/2024 1:04 AM [facility] Lymph Absolute 2.61 0.90 - 3.20 x10(3)/mc L 10/02/2024 1:04 AM [facility] Monocyte % 5.6 % 10/02/2024 1:04 AM [facility] Monocyte Absolute 0.61 0.30 - 0.90 x10(3)/mc L 10/02/2024 1:04 AM [facility] Eos % 1.6 % 10/02/2024 1:04 AM [facility] Eos Absolute 0.18 0.00 - 0.40 x10(3)/mc L 10/02/2024 1:04 AM [facility] Basophil % 0.8 % 10/02/2024 1:04 AM [facility] Baso Absolute 0.09 0.00 - 0.10 x10(3)/mc L 10/02/2024 1:04 AM EST [facility] Immature Gran % 9.7 % 1:04 AM [facility] Immature Gran Absolute 1.06(H) 0.00 - 0.04 x10(3)/mc L 10/02/2024 1:04 AM [facility] Blood VENOUS BLOOD SPECIMEN / Unknown Venipuncture / Unknown 10/02/2024 12:41 AM EST 10/02/2024 12:45 AM EST Hayley Torres MD HEMATOLOGY ORDERABLE S Performing Organization Address City/[facility]/ZIP Co de Phone Number [facility] [place] [address] * POC, GLUCOSE (10/02/2024 12:40 AM EST) Glucometer, POC 116 65 - 199 mg/dL 10/02/2024 12:41 AM EST [facility] Comment:Supplemental ranges: <140 mg/dL before meals <180 mg/dL all other times of the day. Blood CAPILLARY BLOOD / Unknown 10/02/2024 12:40 AM EST 10/02/2024 12:41 AM EST Hayley Torres MD POINT OF CARE TEST O RDERABLES Performing Organization Address City/[facility]/ZIP Co de Phone Number [facility] [place] [address] * POC, GLUCOSE (10/01/2024 8:11 PM EST) Glucometer, POC 123 65 - 199 mg/dL 10/01/2024 8:11 PM EST [facility] Comment:Supplemental ranges: <140 mg/dL before meals <180 mg/dL all other times of the day. Blood CAPILLARY BLOOD / Unknown 10/01/2024 8:11 PM EST 10/01/2024 8:11 PM EST Hayley Torres MD POINT OF CARE TEST O RDERAHERNANDEZ Performing Organization Address [facility] Co de Phone Number [facility] [place] [address] * POC, GLUCOSE (10/01/2024 6:00 PM EST) Glucometer, POC 112 65 - 199 mg/dL 10/01/2024 6:00 PM EST [facility] Comment:Supplemental ranges: <140 mg/dL before meals <180 mg/dL all other times of the day. Blood CAPILLARY BLOOD / Unknown 10/01/2024 6:00 PM EST 10/01/2024 6:00 PM EST Hayley Torres MD POINT OF CARE TEST O GILDA Performing Organization Address [facility] de Phone Number [facility] [place] [address] * POC, GLUCOSE (10/01/2024 3:53 PM EST) Glucometer, POC 97 65 - 199 mg/dL 10/01/2024 3:53 PM EST [facility] Comment:Supplemental ranges: <140 mg/dL before meals <180 mg/dL all other times of the day. Blood CAPILLARY BLOOD / Unknown 10/01/2024 3:53 PM EST 10/01/2024 3:53 PM EST Hayley Torres MD POINT OF CARE TEST O GILDA Performing Organization Address [facility] Co de Phone Number [facility] [place] [address] * POC, GLUCOSE (10/01/2024 2:25 PM EST) Glucometer, POC 117 65 - 199 mg/dL 10/01/2024 2:25 PM EST [facility] Comment:Supplemental ranges: <140 mg/dL before meals <180 mg/dL all other times of the day. Blood CAPILLARY BLOOD / Unknown 10/01/2024 2:25 PM EST 10/01/2024 2:25 PM EST Hayley Torres MD POINT OF CARE TEST O GILDA Performing Organization Address [facility] Co de Phone Number [facility] [place] [address] * POC, GLUCOSE (10/01/2024 11:43 AM EST) Glucometer, POC 174 65 - 199 mg/dL 10/01/2024 11:43 AM EST [facility] Comment:Supplemental ranges: <140 mg/dL before meals <180 mg/dL all other times of the day. Blood CAPILLARY BLOOD / Unknown 10/01/2024 11:43 AM EST 10/01/2024 11:43 AM EST Hayley Torres MD POINT OF CARE TEST O GILDA Performing Organization Address [facility] Co de Phone Number [facility] [place] [address] * POC, GLUCOSE (10/01/2024 9:43 AM EST) Glucometer, POC 191 65 - 199 mg/dL 10/01/2024 9:43 AM EST [facility] Comment:Supplemental ranges: <140 mg/dL before meals <180 mg/dL all other times of the day. Blood CAPILLARY BLOOD / Unknown 10/01/2024 9:43 AM EST 10/01/2024 9:43 AM EST Hayley Torres MD POINT OF CARE TEST O GILDA Performing Organization Address City/[facility] Co de Phone Number [facility] [place] [address] * POC, GLUCOSE (10/01/2024 7:48 AM EST) Glucometer, POC 151 65 - 199 mg/dL 10/01/2024 7:48 AM EST [facility] Comment:Supplemental ranges: <140 mg/dL before meals <180 mg/dL all other times of the day. Blood CAPILLARY BLOOD / Unknown 10/01/2024 7:48 AM EST 10/01/2024 7:48 AM EST Hayley Torres MD POINT OF CARE TEST O RDERABLES Performing Organization Address City/[facility]/ZIP Co de Phone Number [facility] [place] [address] * POC, GLUCOSE (10/01/2024 4:25 AM EST) Glucometer, POC 133 65 - 199 mg/dL 10/01/2024 4:26 AM EST [facility] Comment:Supplemental ranges: <140 mg/dL before meals <180 mg/dL all other times of the day. Blood CAPILLARY BLOOD / Unknown 10/01/2024 4:25 AM EST 10/01/2024 4:26 AM EST Hayley Torres MD POINT OF CARE TEST O RDTYESHA Performing Organization Address [facility]/ZIP Co de Phone Number [facility] [place] [address] * Phosphorus (10/01/2024 2:02 AM EST) Phosphorus 3.9 2.5 - 4.5 mg/dL 10/01/2024 7:16 AM EST [facility] Blood VENOUS BLOOD SPECIMEN / Unknown Venipuncture / Unknown 10/01/2024 2:02 AM EST 10/01/2024 2:10 AM EST Hayley Torres MD CHEMISTRY ORDERABLES Performing Organization Address City/[facility]/ZIP Co de Phone Number [facility] [place] [address] * (ABNORMAL) Scan, Peripheral Blood (10/01/2024 2:02 AM EST) RBC Morphology Abnormal 10/01/2024 2:55 AM EST [facility] Platelet Estimate Increased(A) Normal 10/01 2:55 AM EST [facility] Polychromasia Present 10/01/2024 2:55 AM [facility] Platelet Clumps Present(A) (none) 2:55 AM [facility] Blood VENOUS BLOOD SPECIMEN / Unknown Venipuncture / Unknown 10/01/2024 2:02 AM EST 10/01/2024 2:10 AM EST Hayley Torres MD HEMATOLOGY ORDERABLE S Performing Organization Address [facility]/ZIP Co de Phone Number [facility] [place] [address] * Magnesium (10/01/2024 2:02 AM EST) Pathologist [facility] Magnesium 0.79 0.69 - 1.07 mMol/L 10/01/2024 2:41 AM [facility] Blood VENOUS BLOOD SPECIMEN / Unknown Venipuncture / Unknown 10/01/2024 2:02 AM EST 10/01/2024 2:10 AM EST Hayley Torres MD CHEMISTRY ORDERABLES Performing Organization Address City/[facility]/ZIP Co de Phone Number [facility] [place] [address] * (ABNORMAL) Basic Metabolic Panel (10/01/2024 2:02 AM EST) Glucose 122 65 - 199 mg/dL 10/01/2024 2:41 AM [facility] Comment:Glucose Concentratio n >=200 mg/dL plus symptoms is consistent with Diabetes Mellitus. Blood Urea Nitrogen 10 10 - 20 mg/dL 10/01/2024 2:41 AM [facility] Creatinine 0.47(L) 0.80 - 1.50 mg/dL 10/01/2024 2:41 AM [facility] Sodium 138 135 - 145 mMol/L 10/01/2024 2:41 AM [facility] Potassium 3.9 3.5 - 5.0 mMol/L 10/01/2024 2:41 AM EST [facility] Chloride 105 98 - 107 mMol/L 10/01/2024 2:41 AM [facility] Carbon Dioxide 24 22 - 31 mMol/L 10/01/2024 2:41 AM [facility] Anion Gap 9 5 - 15 mMol/L 10/01/2024 2:41 AM EST [facility] Calcium 8.1(L) 8.5 - 10.5 mg/dL 10/01/2024 2:41 AM EST [facility] Est Glomerular Filtration Rate - Male 127 mL/min/1. 73 m?? 10/01/2024 2:41 AM [facility] Comment: This patient's estimated GFR was [...] AM EST Hayley Torres MD CHEMISTRY ORDERABLES [facility] [place] [address] * (ABNORMAL) CBC (with Diff) (10/01/2024 2:02 AM EST) White Blood Cell 10.15(H) 4.00 - 9.50 x10(3)/mc L 10/01/2024 2:55 AM EST [facility] Red Blood Cell 3.14(L) 4.58 - 5.54 x10(6)/mc L 10/01/2024 2:55 AM [facility] Hemoglobin 9.1(L) 13.7 - 16.5 g/dL 10/01/2024 2:55 AM [facility] Hematocrit 26.9(L) 40.5 - 48.5 % 10/01/2024 2:55 AM [facility] Mean Cell Volume 85.7 82.9 - 93.1 fL 10/01/2024 2:55 AM [facility] Mean Cell Hemoglobin 29.0 27.5 - 32.1 pg 10/01/2024 2:55 AM [facility] Mean Cell Hemoglobin Concentration 33.8 32.0 - 35.7 g/dL 10/01/2024 2:55 AM [facility] Platelet 444(H) 145 - 357 x10(3)/mc L 10/01/2024 2:55 AM [facility] Mean Platelet Volume 8.9 7.6 - 12.9 fL 10/01/2024 2:55 AM [facility] RDW Standard Deviation 41.2 36.0 - 45.0 fL 10/01/2024 2:55 AM [facility] RDW coefficient of variation 13.2 11.4 - 13.8 % 10/01/2024 2:55 AM [facility] NRBC% auto 0.0 % 10/01/2024 2:55 AM [facility] NRBC Absolute <0.01 <0.01 x10(3)/mc L 10/01/2024 2:55 AM [facility] Neutrophil % 59.5 % 10/01/2024 2:55 AM [facility] Comment:This is an appended report. These results have been appended to a previously preliminary verified report. Neutrophil Absolute (ANC) - Automated 6.05 1.70 - 6.10 x10(3)/mc L 10/01/2024 2:55 AM [facility] Comment:This is an appended report. These results have been appended to a previously preliminary verified report. Lymph % 22.3 % 10/01/2024 2:55 AM [facility] Comment:This is an appended report. These results have been appended to a previously preliminary verified report. Lymph Absolute 2.26 0.90 - 3.20 x10(3)/mc L 10/01/2024 2:55 AM [facility] Comment:This is an appended report. These results have been appended to a previously preliminary verified report. Monocyte % 7.4 % 10/01/2024 2:55 AM [facility] Comment:This is an appended report. These results have been appended to a previously preliminary verified report. Monocyte Absolute 0.75 0.30 - 0.90 x10(3)/mc L 10/01/2024 2:55 AM [facility] Comment:This is an appended report. These results have been appended to a previously preliminary verified report. Eos % 1.8 % 10/01/2024 2:55 AM [facility] Comment:This is an appended report. These results have been appended to a previously preliminary verified report. Eos Absolute 0.18 0.00 - 0.40 x10(3)/mc L 10/01/2024 2:55 AM [facility] Comment:This is an appended report. These results have been appended to a previously preliminary verified report. Basophil % 0.6 % 10/01/2024 2:55 AM [facility] Comment:This is an appended report. These results have been appended to a previously preliminary verified report. Baso Absolute 0.06 0.00 - 0.10 x10(3)/mc L 10/01/2024 2:55 AM [facility] Comment:This is an appended report. These results have been appended to a previously preliminary verified report. Immature Gran % 8.4 % 2:55 AM [facility] Comment:This is an appended report. These results have been appended to a previously preliminary verified report. Immature Gran Absolute 0.85(H) 0.00 - 0.04 x10(3)/mc L 10/01/2024 2:55 AM EST [facility] Comment:This is an appended report. These results have been appended to a previously preliminary verified report. Blood VENOUS BLOOD SPECIMEN / Unknown Venipuncture / Unknown 10/01/2024 2:02 AM EST 10/01/2024 2:10 AM EST Hayley Torres MD HEMATOLOGY ORDERABLE S Performing Organization Address City/[facility]/ZIP Co de Phone Number [facility] [place] [address] * POC, GLUCOSE (10/01/2024 12:32 AM EST) Glucometer, POC 179 65 - 199 mg/dL 10/01/2024 12:32 AM EST [facility] Comment:Supplemental ranges: <140 mg/dL before meals <180 mg/dL all other times of the day. Blood CAPILLARY BLOOD / Unknown 10/01/2024 12:32 AM EST 10/01/2024 12:32 AM EST Hayley Torres MD POINT OF CARE TEST O RDERAHERNANDEZ Performing Organization Address [facility] Co de Phone Number [facility] [place] [address] * POC, GLUCOSE (09/30/2024 7:37 PM EST) Glucometer, POC 140 65 - 199 mg/dL 09/30/2024 7:38 PM EST [facility] Comment:Supplemental ranges: <140 mg/dL before meals <180 mg/dL all other times of the day. Blood CAPILLARY BLOOD / Unknown 09/30/2024 7:37 PM EST 09/30/2024 7:38 PM EST Hayley Torres MD POINT OF CARE TEST O RDTYESHA Performing Organization Address City/[facility]/ZIP Co de Phone Number [facility] [place] [address] * POC, GLUCOSE (09/30/2024 4:29 PM EST) Glucometer, POC 126 65 - 199 mg/dL 09/30/2024 4:30 PM EST [facility] Comment:Supplemental ranges: <140 mg/dL before meals <180 mg/dL all other times of the day. Blood CAPILLARY BLOOD / Unknown 09/30/2024 4:29 PM EST 09/30/2024 4:30 PM EST Hayley Torres MD POINT OF CARE TEST O RDERAHERNANDEZ [facility] [place] [address] * POC, GLUCOSE (09/30/2024 12:16 PM EST) Glucometer, POC 107 65 - 199 mg/dL 09/30/2024 12:16 PM EST [facility] Comment:Supplemental ranges: <140 mg/dL before meals <180 mg/dL all other times of the day. Blood CAPILLARY BLOOD / Unknown 09/30/2024 12:16 PM EST 09/30/2024 12:16 PM EST Hayley Torres MD POINT OF CARE TEST O RDERAHERNANDEZ [facility] [place] [address] * POC, GLUCOSE (09/30/2024 7:58 AM EST) Glucometer, POC 92 65 - 199 mg/dL 09/30/2024 7:58 AM EST [facility] Comment:Supplemental ranges: <140 mg/dL before meals <180 mg/dL all other times of the day. Blood CAPILLARY BLOOD / Unknown 09/30/2024 7:58 AM EST 09/30/2024 7:58 AM EST Hayley Torres MD POINT OF CARE TEST O RDERABLES Performing Organization Address City/[facility]/ZIP Co de Phone Number [facility] [place] [address] * Potassium (09/30/2024 6:27 AM EST) Pathologist [facility] Potassium 3.9 3.5 - 5.0 mMol/L 09/30/2024 7:10 AM EST [facility] Blood VENOUS BLOOD SPECIMEN / Unknown Venipuncture / Unknown 09/30/2024 6:27 AM EST 09/30/2024 6:35 AM EST Hayley Torres MD CHEMISTRY ORDERABLES Performing Organization Address [facility] Co de Phone Number [facility] [place] [address] * Vancomycin, trough (09/30/2024 6:27 AM EST) [facility] Vancomycin, Trough 14.1 10.0 - 20.0 mg/L 09/30/2024 7:10 AM EST [facility] Comment: Varies according to infection source. Blood VENOUS BLOOD SPECIMEN / Unknown Venipuncture / Unknown 09/30/2024 6:27 AM EST 09/30/2024 6:35 AM EST Hayley Torres MD CHEMISTRY ORDERABLES Performing Organization Address City/[facility] Co de Phone Number [facility] [place] [address] * POC, GLUCOSE (09/30/2024 3:51 AM EST) Glucometer, POC 134 65 - 199 mg/dL 09/30/2024 3:51 AM EST [facility] Comment:Supplemental ranges: <140 mg/dL before meals <180 mg/dL all other times of the day. Blood CAPILLARY BLOOD / Unknown 09/30/2024 3:51 AM EST 09/30/2024 3:51 AM EST Hayley Torres MD POINT OF CARE TEST O RDERABLES [facility] [place] [address] * Magnesium (09/29/2024 11:52 PM EST) [facility] Magnesium 0.85 0.69 - 1.07 mMol/L 09/30/2024 12:25 AM [facility] Blood VENOUS BLOOD SPECIMEN / Unknown Venipuncture / Unknown 09/29/2024 11:52 PM EST 09/29/2024 11:58 PM EST Hayley Torres MD CHEMISTRY ORDERABLES Performing Organization Address City/[facility]/ZIP Co de Phone Number [facility] [place] [address] * (ABNORMAL) Basic Metabolic Panel (09/29/2024 11:52 PM EST) [facility] Glucose 133 65 - 199 mg/dL 09/30/2024 12:51 AM [facility] Comment:Glucose Concentratio n >=200 mg/dL plus symptoms is consistent with Diabetes Mellitus. Blood Urea Nitrogen 9(L) 10 - 20 mg/dL 09/30/2024 12:51 AM [facility] Creatinine 0.48(L) 0.80 - 1.50 mg/dL 09/30/2024 12:51 AM [facility] Sodium 138 135 - 145 mMol/L 09/30/2024 12:51 AM [facility] Potassium 3.4(L) 3.5 - 5.0 mMol/L 09/30/2024 12:51 AM [facility] Chloride 103 98 - 107 mMol/L 09/30/2024 12:51 AM [facility] Carbon Dioxide 24 22 - 31 mMol/L 09/30/2024 12:51 AM [facility] Anion Gap 11 5 - 15 mMol/L 09/30/2024 12:51 AM [facility] Calcium 8.1(L) 8.5 - 10.5 mg/dL 09/30/2024 12:51 AM [facility] Est Glomerular Filtration Rate - Male 126 mL/min/1. 73 m?? 09/30/2024 12:51 AM [facility] Comment: This patient's estimated GFR was [...] PM EST Hayley Torres MD CHEMISTRY ORDERABLES [facility] [place] [phone] * (ABNORMAL) CBC (with Diff) (09/29/2024 11:52 PM EST) White Blood Cell 9.54(H) 4.00 - 9.50 x10(3)/mc L 09/30/2024 12:02 AM [facility] Red Blood Cell 3.04(L) 4.58 - 5.54 x10(6)/mc L 09/30/2024 12:02 AM [facility] Hemoglobin 8.7(L) 13.7 - 16.5 g/dL 09/30/2024 12:02 AM [facility] Hematocrit 25.8(L) 40.5 - 48.5 % 09/30/2024 12:02 AM [facility] Mean Cell Volume 84.9 82.9 - 93.1 fL 09/30/2024 12:02 AM [facility] Mean Cell Hemoglobin 28.6 27.5 - 32.1 pg 09/30/2024 12:02 AM [facility] Mean Cell Hemoglobin Concentration 33.7 32.0 - 35.7 g/dL 09/30/2024 12:02 AM [facility] Platelet 411(H) 145 - 357 x10(3)/mc L 09/30/2024 12:02 AM [facility] Mean Platelet Volume 8.8 7.6 - 12.9 fL 09/30/2024 12:02 AM [facility] RDW Standard Deviation 41.4 36.0 - 45.0 fL 09/30/2024 12:02 AM [facility] RDW coefficient of variation 13.4 11.4 - 13.8 % 09/30/2024 12:02 AM [facility] NRBC% auto 0.0 % 09/30/2024 12:02 AM [facility] NRBC Absolute <0.01 <0.01 x10(3)/mc L 09/30/2024 12:02 AM [facility] Neutrophil % 64.5 % 09/30/2024 12:02 AM [facility] Neutrophil Absolute (ANC) - Automated 6.16(H) 1.70 - 6.10 x10(3)/mc L 09/30/2024 12:02 AM [facility] Lymph % 23.1 % 09/30/2024 12:02 AM [facility] Lymph Absolute 2.20 0.90 - 3.20 x10(3)/mc L 09/30/2024 12:02 AM [facility] Monocyte % 8.0 % 09/30/2024 12:02 AM [facility] Monocyte Absolute 0.76 0.30 - 0.90 x10(3)/mc L 09/30/2024 12:02 AM [facility] Eos % 1.5 % 09/30/2024 12:02 AM [facility] Eos Absolute 0.14 0.00 - 0.40 x10(3)/mc L 09/30/2024 12:02 AM [facility] Basophil % 0.3 % 09/30/2024 12:02 AM [facility] Baso Absolute <0.04 0.00 - 0.10 x10(3)/mc L 09/30/2024 12:02 AM [facility] Immature Gran % 2.6 % 12:02 AM [facility] Immature Gran Absolute 0.25(H) 0.00 - 0.04 x10(3)/mc L 09/30/2024 12:02 AM [facility] Blood VENOUS BLOOD SPECIMEN / Unknown Venipuncture / Unknown 09/29/2024 11:52 PM EST 09/29/2024 11:58 PM EST Hayley Torres MD HEMATOLOGY ORDERABLE S [facility] [place] [address] * POC, GLUCOSE (09/29/2024 11:51 PM EST) [facility] Glucometer, POC 134 65 - 199 mg/dL 09/29/2024 11:51 PM [facility] Comment:Supplemental ranges: <140 mg/dL before meals <180 mg/dL all other times of the day. Blood CAPILLARY BLOOD / Unknown 09/29/2024 11:51 PM EST 09/29/2024 11:51 PM EST Hayley Torres MD POINT OF CARE TEST O RDERABLES [facility] [place] [address] * Blood culture (09/29/2024 9:24 PM EST) [facility] Blood Culture No growth at 120 hours 10/04/2024 11:01 PM [facility] Blood VENOUS BLOOD SPECIMEN / Unknown Venipuncture / Unknown 09/29/2024 9:24 PM EST 09/29/2024 9:34 PM EST Hayley Torres MD MICROBIOLOGY - BLOOD ORDERABLES Performing Organization Address City/[facility]/ZIP Co de Phone Number [facility] [place] [address] * Blood culture (09/29/2024 9:24 PM EST) Blood Culture No growth at 120 hours 10/04/2024 11:01 PM EST [facility] Blood VENOUS BLOOD SPECIMEN / Unknown Venipuncture / Unknown 09/29/2024 9:24 PM EST 09/29/2024 9:34 PM EST Marko Dickson MD MICROBIOLOGY - BLOOD ORDERABLES Performing Organization Address [facility] Co de Phone Number [facility] [place] [address] * (ABNORMAL) POC, GLUCOSE (09/29/2024 7:35 PM EST) Glucometer, POC 202(H) 65 - 199 mg/dL 09/29/2024 7:36 PM EST [facility] Comment:Supplemental ranges: <140 mg/dL before meals <180 mg/dL all other times of the day. Blood CAPILLARY BLOOD / Unknown 09/29/2024 7:35 PM EST 09/29/2024 7:36 PM EST Hayley Torres MD POINT OF CARE TEST O RDERABLES Performing Organization Address City/[facility]/ZIP Co de Phone Number [facility] [place] [address] * POC, GLUCOSE (09/29/2024 6:48 PM EST) Glucometer, POC 161 65 - 199 mg/dL 09/29/2024 6:48 PM EST [facility] Comment:Supplemental ranges: <140 mg/dL before meals <180 mg/dL all other times of the day. Blood CAPILLARY BLOOD / Unknown 09/29/2024 6:48 PM EST 09/29/2024 6:49 PM EST Hayley Torres MD POINT OF CARE TEST O GILDA [facility] [place] [address] * POC, GLUCOSE (09/29/2024 4:06 PM EST) Glucometer, POC 122 65 - 199 mg/dL 09/29/2024 4:06 PM EST [facility] Comment:Supplemental ranges: <140 mg/dL before meals <180 mg/dL all other times of the day. Blood CAPILLARY BLOOD / Unknown 09/29/2024 4:06 PM EST 09/29/2024 4:06 PM EST Hayley Torres MD POINT OF CARE TEST O GILDA Performing Organization Address City/[facility]/ZIP Co de Phone Number [facility] [place] [address] * POC, GLUCOSE (09/29/2024 11:49 AM EST) Glucometer, POC 135 65 - 199 mg/dL 09/29/2024 11:49 AM EST [facility] Comment:Supplemental ranges: <140 mg/dL before meals <180 mg/dL all other times of the day. Blood CAPILLARY BLOOD / Unknown 09/29/2024 11:49 AM EST 09/29/2024 11:50 AM EST Hayley Torres MD POINT OF CARE TEST O GILDA [facility] [place] [address] * (ABNORMAL) POC, GLUCOSE (09/29/2024 7:53 AM EST) Glucometer, POC (H) 65 - 199 mg/dL 09/29/2024 7:53 AM EST [facility] Comment:Supplemental ranges: <140 mg/dL before meals <180 mg/dL all other times of the day. Blood CAPILLARY BLOOD / Unknown 09/29/2024 7:53 AM EST 09/29/2024 7:53 AM EST Hayley Torres MD POINT OF CARE TEST O GILDA Performing Organization Address [facility] Co de Phone Number [facility] [place] [address] * POC, GLUCOSE (09/29/2024 3:45 AM EST) Glucometer, POC 184 65 - 199 mg/dL 09/29/2024 3:46 AM EST [facility] Comment:Supplemental ranges: <140 mg/dL before meals <180 mg/dL all other times of the day. Blood CAPILLARY BLOOD / Unknown 09/29/2024 3:45 AM EST 09/29/2024 3:46 AM EST Hayley Torres MD POINT OF CARE TEST Stephanie VO Performing Organization Address [facility] Phone Number [facility] [place] [address] * (ABNORMAL) Hemoglobin A1c (09/28/2024 11:51 PM EST) Hemoglobin A1c 9.7(H) 4.3 - 5.6 % 09/29/2024 9:54 AM EST [facility] Comment: Per ADA guidelines, without [...] red blood cell turnover may not be outreach representative of glycemic control. Reference Interval: 4.3 - 5.6% 5.7 - 6.4%: Consistent with prediabetes >=6.5%: Consistent with diagnosis of diabetes mellitus Estimated Average Glucose 232 mg/dL 09/29/2024 9:54 AM EST [facility] Blood VENOUS BLOOD SPECIMEN / Unknown Venipuncture / Unknown 09/28/2024 11:51 PM EST 09/28/2024 11:56 PM EST Hayley Torres MD CHEMISTRY ORDERABLES Performing Organization Address City/[facility]/ZIP Co de Phone Number [facility] [place] [address] * Magnesium (09/28/2024 11:51 PM EST) Pathologist [facility] Magnesium 0.72 0.69 - 1.07 mMol/L 09/29/2024 12:27 AM [facility] Blood VENOUS BLOOD SPECIMEN / Unknown Venipuncture / Unknown 09/28/2024 11:51 PM EST 09/28/2024 11:57 PM EST Hayley Torres MD CHEMISTRY ORDERABLES Performing Organization Address City/[facility] Co de Phone Number [facility] [place] [address] * (ABNORMAL) Basic Metabolic Panel (09/28/2024 11:51 PM EST) Glucose 204(H) 65 - 199 mg/dL 09/29/2024 12:40 AM [facility] Comment:Glucose Concentratio n >=200 mg/dL plus symptoms is consistent with Diabetes Mellitus. Blood Urea Nitrogen 6(L) 10 - 20 mg/dL 09/29/2024 12:40 AM [facility] Creatinine 0.52(L) 0.80 - 1.50 mg/dL 09/29/2024 12:40 AM [facility] Sodium 137 135 - 145 mMol/L 09/29/2024 12:40 AM [facility] Potassium 3.2(L) 3.5 - 5.0 mMol/L 09/29/2024 12:40 AM [facility] Chloride 105 98 - 107 mMol/L 09/29/2024 12:40 AM [facility] Carbon Dioxide 21(L) 22 - 31 mMol/L 09/29/2024 12:40 AM [facility] Anion Gap 11 5 - 15 mMol/L 09/29/2024 12:40 AM [facility] Calcium 6.7(LLL) 8.5 - 10.5 mg/dL 09/29/2024 12:40 AM [facility] Est Glomerular Filtration Rate - Male 123 mL/min/1. 73 m?? 09/29/2024 12:40 AM [facility] Comment: This patient's estimated GFR was [...] PM EST Hayley Torres MD CHEMISTRY ORDERABLES [facility] [place] [address] * (ABNORMAL) CBC (with Diff) (09/28/2024 11:51 PM EST) White Blood Cell 12.76(H) 4.00 - 9.50 x10(3)/mc L 09/29/2024 12:00 AM EST [facility] Red Blood Cell 2.90(L) 4.58 - 5.54 x10(6)/mc L 09/29/2024 12:00 AM [facility] Hemoglobin 8.5(L) 13.7 - 16.5 g/dL 09/29/2024 12:00 AM [facility] Hematocrit 24.7(L) 40.5 - 48.5 % 09/29/2024 12:00 AM [facility] Mean Cell Volume 85.2 82.9 - 93.1 fL 09/29/2024 12:00 AM [facility] Mean Cell Hemoglobin 29.3 27.5 - 32.1 pg 09/29/2024 12:00 AM [facility] Mean Cell Hemoglobin Concentration 34.4 32.0 - 35.7 g/dL 09/29/2024 12:00 AM [facility] Platelet 331 145 - 357 x10(3)/mc L 09/29/2024 12:00 AM [facility] Mean Platelet Volume 9.2 7.6 - 12.9 fL 09/29/2024 12:00 AM [facility] RDW Standard Deviation 40.4 36.0 - 45.0 fL 09/29/2024 12:00 AM [facility] RDW coefficient of variation 13.1 11.4 - 13.8 % 09/29/2024 12:00 AM [facility] NRBC% auto 0.0 % 09/29/2024 12:00 AM [facility] NRBC Absolute <0.01 <0.01 x10(3)/mc L 09/29/2024 12:00 AM [facility] Neutrophil % 86.7 % 09/29/2024 12:00 AM [facility] Neutrophil Absolute (ANC) - Automated 11.06(H) 1.70 - 6.10 x10(3)/mc L 09/29/2024 12:00 AM [facility] Lymph % 7.7 % 09/29/2024 12:00 AM [facility] Lymph Absolute 0.98 0.90 - 3.20 x10(3)/mc L 09/29/2024 12:00 AM [facility] Monocyte % 4.0 % 09/29/2024 12:00 AM [facility] Monocyte Absolute 0.51 0.30 - 0.90 x10(3)/mc L 09/29/2024 12:00 AM [facility] Eos % 0.0 % 09/29/2024 12:00 AM [facility] Eos Absolute <0.04 0.00 - 0.40 x10(3)/mc L 09/29/2024 12:00 AM [facility] Basophil % 0.2 % 09/29/2024 12:00 AM [facility] Baso Absolute <0.04 0.00 - 0.10 x10(3)/mc L 09/29/2024 12:00 AM [facility] Immature Gran % 1.4 % 12:00 AM [facility] Immature Gran Absolute 0.18(H) 0.00 - 0.04 x10(3)/mc L 09/29/2024 12:00 AM [facility] Blood VENOUS BLOOD SPECIMEN / Unknown Venipuncture / Unknown 09/28/2024 11:51 PM EST 09/28/2024 11:56 PM EST Hayley Torres MD HEMATOLOGY ORDERABLE S [facility] [place] [address] * (ABNORMAL) POC, GLUCOSE (09/28/2024 11:45 PM EST) [facility] Signature Glucometer, POC 238(H) 65 - 199 mg/dL 09/28/2024 11:45 PM EST [facility] Comment:Supplemental ranges: <140 mg/dL before meals <180 mg/dL all other times of the day. Blood CAPILLARY BLOOD / Unknown 09/28/2024 11:45 PM EST 09/28/2024 11:45 PM EST Hyaley Torres MD POINT OF CARE TEST O GILDA Performing Organization Address [facility] Co de Phone Number [facility] [place] [address] * (ABNORMAL) POC, GLUCOSE (09/28/2024 10:00 PM EST) Glucometer, POC 287(H) 65 - 199 mg/dL 09/28/2024 10:00 PM EST [facility] Comment:Supplemental ranges: <140 mg/dL before meals <180 mg/dL all other times of the day. Blood CAPILLARY BLOOD / Unknown 09/28/2024 10:00 PM EST 09/28/2024 10:00 PM EST Hayley Torres MD POINT OF CARE TEST O GILDA Performing Organization Address [facility] Co de Phone Number [facility] [place] [address] * (ABNORMAL) POC, GLUCOSE (09/28/2024 7:51 PM EST) Glucometer, POC 243(H) 65 - 199 mg/dL 09/28/2024 7:52 PM EST [facility] Comment:Supplemental ranges: <140 mg/dL before meals <180 mg/dL all other times of the day. Blood CAPILLARY BLOOD / Unknown 09/28/2024 7:51 PM EST 09/28/2024 7:52 PM EST Hayley Torres MD POINT OF CARE TEST O GILDA Performing Organization Address [facility] Co de Phone Number [facility] [place] [address] * Blood culture (09/28/2024 5:49 PM EST) Blood Culture No growth at 120 hours 10/03/2024 7:01 PM EST [facility] Blood VENOUS BLOOD SPECIMEN / Unknown Venipuncture / Unknown 09/28/2024 5:49 PM EST 09/28/2024 5:53 PM EST Marko Dickson MD MICROBIOLOGY - BLOOD ORDERABLES Performing Organization Address City/[facility]/ZIP Co de Phone Number [facility] [place] [address] * (ABNORMAL) POC, GLUCOSE (09/28/2024 4:42 PM EST) Glucometer, POC 203(H) 65 - 199 mg/dL 09/28/2024 4:42 PM EST [facility] Comment:Supplemental ranges: <140 mg/dL before meals <180 mg/dL all other times of the day. Blood CAPILLARY BLOOD / Unknown 09/28/2024 4:42 PM EST 09/28/2024 4:42 PM EST Hayley Torres MD POINT OF CARE TEST O RDERABLES Performing Organization Address City/[facility]/ZIP Co de Phone Number [facility] [place] [address] * (ABNORMAL) Blood Gas, Arterial POC (09/28/2024 3:16 PM EST) pH, Arterial 7.42 7.35 - 7.45 09/28/2024 3:17 PM EST [facility] PCO2, Arterial 39 35 - 45 mmHg 09/28/2024 3:17 PM EST [facility] PO2, Arterial 103 85 - 104 mmHg 09/28/2024 3:17 PM EST [facility] Bicarbonate, Arterial 24.8 20.0 - 26.0 mmol/L 09/28/2024 3:17 PM EST [facility] Base Excess, Arterial 0.2 -3.0 - 3.0 mmol/L 09/28/2024 3:17 PM EST [facility] Hemoglobin, Arterial 10.9(L) 13.7 - 16.5 g/dL 09/28/2024 3:17 PM EST [facility] Oxyhemoglobin, Arterial 97.1(H) 94.0 - 97.0 % 09/28/2024 3:17 PM EST [facility] Carboxyhemoglobin , Arterial 0.1 % 09/28/2024 3:17 PM [facility] Comment: Nonsmokers: 0.5-1.5% COHB ?? Smokers: Variable ??but usually less than 10% ?? Toxic: 20-30% COHB ?? Lethal: Greater than 60% COHB Methemoglobin, Arterial 0.2 <=1.5 % 09/28/2024 3:17 PM EST [facility] Sodium, Arterial 131(L) 135 - 145 mmol/L 09/28/2024 3:17 PM [facility] Potassium, Arterial 3.8 3.5 - 5.0 mmol/L 09/28/2024 3:17 PM [facility] Chloride, Arterial 99 98 - 107 mmol/L 09/28/2024 3:17 PM EST [facility] Lactate, Arterial 1.1 0.5 - 2.2 mmol/L 09/28/2024 3:17 PM [facility] IONIZED CALCIUM, ARTERIAL 1.08(L) 1.15 - 1.33 mmol/L 09/28/2024 3:17 PM EST [facility] Glucose, Arterial 163 65 - 199 mg/dL 09/28/2024 3:17 PM EST [facility] Comment:Glucose Concentratio n >=200 mg/dL plus symptoms is consistent with Diabetes Mellitus. Blood ARTERIAL BLOOD / Unknown 09/28/2024 3:16 PM EST 09/28/2024 3:17 PM EST Hayley Torres MD POINT OF CARE TEST O RDERABLES [facility] [place] [address] * Surgical Pathology (09/28/2024 2:10 PM EST) Case Report Surgical Pathology Report ? Case: [id number] ? Authorizing Provider: ??Melissa, Hayley Skinner, ? Collected: ? 09/28/2024 1410 ? Ordering Location: ? Main Operating Room [facility] ?? Received: ?09/28/2024 1644 ? [facility] ? Pathologist: ? Aziza Packer, MD ? Specimens: ?? A) - Leg, Left, Left femoral proximal graft ? B) - Leg, Left, Left distal BK pop graft ? 10/02/2024 8:17 AM [facility] Final Diagnosis A. Graft, left leg, femoral proximal, excision: - Gross surgical pathology examination. B. Graft, left leg, distal BK pop, excision: - Gross surgical pathology examination. 10/02/2024 8:17 AM [facility] Clinical Information A. Leg, Left, Left femoral proximal graft Left femoral proximal graft B. Leg, Left, Left distal BK pop graft Left distal BK pop graft 10/02/2024 8:17 AM [facility] Gross Description A. Leg, Left, Left [...] sns 10/02/2024 8:17 AM [facility] Result Note Routine 10/02/2024 8:17 AM [facility] Hydrate Control Tender STRUCTURE OF LEFT LOWER LIMB / Unknown 09/28/2024 2:10 PM EST 09/28/2024 4:44 PM EST Comment:Left femoral proxima l graft Biomedical device (physical object) STRUCTURE OF LEFT LOWER LIMB / Unknown 09/28/2024 2:17 PM EST 09/28/2024 4:44 PM EST Comment:Left distal BK pop g raft Hayley Torres MD PATHOLOGY/CYTOLOGY O RDERABLES Performing Organization Address [facility] Co de Phone Number [facility] [place] [address] * Potassium (09/28/2024 10:45 AM EST) Pathologist [facility] Potassium 4.6 3.5 - 5.0 mMol/L 09/28/2024 12:26 PM EST [facility] Blood VENOUS BLOOD SPECIMEN / Unknown Venipuncture / Unknown 09/28/2024 10:45 AM EST 09/28/2024 10:53 AM EST Marko Dickson MD CHEMISTRY ORDERABLES Performing Organization Address [facility] Co de Phone Number [facility] [place] [address] * POC, GLUCOSE (09/28/2024 7:57 AM EST) [facility] Glucometer, POC 192 65 - 199 mg/dL 09/28/2024 7:57 AM EST [facility] Comment:Supplemental ranges: <140 mg/dL before meals <180 mg/dL all other times of the day. Blood CAPILLARY BLOOD / Unknown 09/28/2024 7:57 AM EST 09/28/2024 7:57 AM EST Marko Dickson MD POINT OF CARE TEST O GILDA Performing Organization Address [facility] Co de Phone Number [facility] [place] [address] * ELEN, legs, multiple levels (09/28/2024 7:44 AM EST) VB Text Report Department: Vascular Surgery Lab Patient: [id number] (GEOVANNA DIXON) CPT: 75857 Referring Physician: HERMILA SNIDER ?? Phone: Indications: [...] EST Narrative 09/28/2024 9:15 AM EST [address] [place] [address] ? Echocardiogram Report Name: GEOVANNA DIXON JR ?Study Date: 09/28/2024 06:56 AMBP: 132/75 mmHg ? Patient Location: ^08^A : 1975 ? Height: 179 cm ? Account: [id number] Age: 49 yrs ? Weight: 108 kg Gender: Male ?BSA: 2.3 m2 Ordering Physician: Marko Dickson MD Referring Physician: PATRIC GILES Performed By: Faiza Cole Reason For Study: Vascular graft infection, initial encounter; MRSA bacteremia Interpreting Fellow: Jame Lares. Exam Location: [facility]. Interpretation Summary -Limited study performed [...] 05/29/2024, no significant changes. Procedure Limited - 50582. Doppler - 52726. Color Doppler - 22806. Suboptimal quality. This study is limited because [...] Note David Lomeli MD - 09/28/2024 [address] [place] [address] Echocardiogram Report Name: GEOVANNA DIXON JR Study Date: 406:56 AMBP: 132/75 mmHg Patient Location:[facility]^A : 1975 Height: 179 cm Account: [id number] Age: 49 yrs Weight: 108 kg Gender: Male BSA: 2.3 m2 Ordering Physician: Marko Dickson MD Referring Physician: PATRIC GILES Performed By: Faiza Cole Reason For Study: Vascular graft infection, initial encounter; MRSAbacteremia Interpreting Fellow: Jame Lares. Exam Location: [facility]. Interpretation Summary -Limited study performed [...] 05/29/2024, no significant changes. Procedure Limited - 48586. Doppler - 51398. Color Doppler - 34027. Suboptimalquality. This study is limited because of [...] - 20.0 mg/L 09/28/2024 7:21 AM EST [facility] Comment: Varies according to infection source. Blood VENOUS BLOOD SPECIMEN / Unknown Venipuncture / Unknown 09/28/2024 6:44 AM EST 09/28/2024 6:49 AM EST Marko Dickson MD CHEMISTRY ORDERABLES Performing Organization Address City/[facility]/ZIP Co de Phone Number [facility] [place] [address] * (ABNORMAL) Potassium (09/28/2024 4:55 AM EST) Potassium 2.9(LLL) 3.5 - 5.0 mMol/L 09/28/2024 5:31 AM EST [facility] Blood VENOUS BLOOD SPECIMEN / Unknown Venipuncture / Unknown 09/28/2024 4:55 AM EST 09/28/2024 5:01 AM EST Marko Dickson MD CHEMISTRY ORDERABLES [facility] [place] [address] * (ABNORMAL) POC, GLUCOSE (09/28/2024 3:54 AM EST) Glucometer, POC 229(H) 65 - 199 mg/dL 09/28/2024 3:54 AM EST [facility] Comment:Supplemental ranges: <140 mg/dL before meals <180 mg/dL all other times of the day. Blood CAPILLARY BLOOD / Unknown 09/28/2024 3:54 AM EST 09/28/2024 3:54 AM EST Marko Dickson MD POINT OF CARE TEST O RDERABLES Performing Organization Address City/[facility]/ZIP Co de Phone Number [facility] [place] [address] * Magnesium (09/27/2024 11:58 PM EST) Magnesium 0.77 0.69 - 1.07 mMol/L 09/28/2024 12:38 AM [facility] Blood VENOUS BLOOD SPECIMEN / Unknown Venipuncture / Unknown 09/27/2024 11:58 PM EST 09/28/2024 12:10 AM EST Hayley Torres MD CHEMISTRY ORDERABLES Performing Organization Address City/[facility]/ZIP Co de Phone Number [facility] [place] [address] * (ABNORMAL) Basic Metabolic Panel (09/27/2024 11:58 PM EST) Glucose 246(H) 65 - 199 mg/dL 09/28/2024 12:38 AM EST [facility] Comment:Glucose Concentratio n >=200 mg/dL plus symptoms is consistent with Diabetes Mellitus. Blood Urea Nitrogen 5(L) 10 - 20 mg/dL 09/28/2024 12:38 AM EST [facility] Creatinine 0.48(L) 0.80 - 1.50 mg/dL 09/28/2024 12:38 AM EST [facility] Sodium 131(L) 135 - 145 mMol/L 09/28/2024 12:38 AM [facility] Potassium 3.2(L) 3.5 - 5.0 mMol/L 09/28/2024 12:38 AM [facility] Chloride 95(L) 98 - 107 mMol/L 09/28/2024 12:38 AM [facility] Carbon Dioxide 23 22 - 31 mMol/L 09/28/2024 12:38 AM [facility] Anion Gap 13 5 - 15 mMol/L 09/28/2024 12:38 AM [facility] Calcium 8.1(L) 8.5 - 10.5 mg/dL 09/28/2024 12:38 AM [facility] Est Glomerular Filtration Rate - Male 126 mL/min/1. 73 m?? 09/28/2024 12:38 AM [facility] Comment: This patient's estimated GFR was [...] AM EST Hayley Torres MD CHEMISTRY ORDERABLES [facility] [place] [address] * (ABNORMAL) CBC (with Diff) (09/27/2024 11:58 PM EST) White Blood Cell 17.15(H) 4.00 - 9.50 x10(3)/mc L 09/28/2024 12:14 AM [facility] Red Blood Cell 3.64(L) 4.58 - 5.54 x10(6)/mc L 09/28/2024 12:14 AM [facility] Hemoglobin 10.4(L) 13.7 - 16.5 g/dL 09/28/2024 12:14 AM [facility] Hematocrit 30.5(L) 40.5 - 48.5 % 09/28/2024 12:14 AM [facility] Mean Cell Volume 83.8 82.9 - 93.1 fL 09/28/2024 12:14 AM [facility] Mean Cell Hemoglobin 28.6 27.5 - 32.1 pg 09/28/2024 12:14 AM [facility] Mean Cell Hemoglobin Concentration 34.1 32.0 - 35.7 g/dL 09/28/2024 12:14 AM [facility] Platelet 316 145 - 357 x10(3)/mc L 09/28/2024 12:14 AM [facility] Mean Platelet Volume 9.4 7.6 - 12.9 fL 09/28/2024 12:14 AM [facility] RDW Standard Deviation 39.4 36.0 - 45.0 fL 09/28/2024 12:14 AM [facility] RDW coefficient of variation 12.8 11.4 - 13.8 % 09/28/2024 12:14 AM [facility] NRBC% auto 0.0 % 09/28/2024 12:14 AM [facility] NRBC Absolute <0.01 <0.01 x10(3)/mc L 09/28/2024 12:14 AM [facility] Neutrophil % 81.2 % 09/28/2024 12:14 AM [facility] Neutrophil Absolute (ANC) - Automated 13.93(H) 1.70 - 6.10 x10(3)/mc L 09/28/2024 12:14 AM EST [facility] Lymph % 10.5 % 09/28/2024 12:14 AM [facility] Lymph Absolute 1.80 0.90 - 3.20 x10(3)/mc L 09/28/2024 12:14 AM [facility] Monocyte % 5.7 % 09/28/2024 12:14 AM [facility] Monocyte Absolute 0.98(H) 0.30 - 0.90 x10(3)/mc L 09/28/2024 12:14 AM [facility] Eos % 0.7 % 09/28/2024 12:14 AM [facility] Eos Absolute 0.12 0.00 - 0.40 x10(3)/mc L 09/28/2024 12:14 AM [facility] Basophil % 0.5 % 09/28/2024 12:14 AM [facility] Baso Absolute 0.08 0.00 - 0.10 x10(3)/mc L 09/28/2024 12:14 AM [facility] Immature Gran % 1.4 % 12:14 AM [facility] Immature Gran Absolute 0.24(H) 0.00 - 0.04 x10(3)/mc L 09/28/2024 12:14 AM [facility] Blood VENOUS BLOOD SPECIMEN / Unknown Venipuncture / Unknown 09/27/2024 11:58 PM EST 09/28/2024 12:10 AM EST Hayley Torres MD HEMATOLOGY ORDERABLE S [facility] [place] [address] * (ABNORMAL) POC, GLUCOSE (09/27/2024 11:46 PM EST) Glucometer, POC 205(H) 65 - 199 mg/dL 09/27/2024 11:46 PM EST [facility] Comment:Supplemental ranges: <140 mg/dL before meals <180 mg/dL all other times of the day. Blood CAPILLARY BLOOD / Unknown 09/27/2024 11:46 PM EST 09/27/2024 11:46 PM EST Marko Dickson MD POINT OF CARE TEST O RDERABLES Performing Organization Address [facility] Co de Phone Number [facility] [place] [address] * (ABNORMAL) Blood culture (09/27/2024 9:33 PM EST) Blood Culture Methicillin Resistant Staphylococcus aureus(Critical) 10/02/2024 8:04 AM EST [facility] Comment:Susceptibilities pre viously reported. Gram Stain Aerobic Bottle: Gram positive cocci in clusters(Critical ) 10/02/2024 8:04 AM EST [facility] Blood VENOUS BLOOD SPECIMEN / Unknown Venipuncture / Unknown 09/27/2024 9:33 PM EST 09/27/2024 9:38 PM EST Marko Dickson MD MICROBIOLOGY - BLOOD ORDERABLES Performing Organization Address [facility] Co de Phone Number [facility] [place] [address] * POC, GLUCOSE (09/27/2024 7:51 PM EST) Glucometer, POC 142 65 - 199 mg/dL 09/27/2024 7:51 PM EST [facility] Comment:Supplemental ranges: <140 mg/dL before meals <180 mg/dL all other times of the day. Blood CAPILLARY BLOOD / Unknown 09/27/2024 7:51 PM EST 09/27/2024 7:51 PM EST Marko Dickson MD POINT OF CARE TEST O RDERABLES Performing Organization Address City/[facility] Co de Phone Number [facility] [place] [address] * (ABNORMAL) Hemogram (09/27/2024 5:55 PM EST) White Blood Cell 19.38(H) 4.00 - 9.50 x10(3)/mc L 09/27/2024 6:16 PM [facility] Red Blood Cell 3.76(L) 4.58 - 5.54 x10(6)/mc L 09/27/2024 6:16 PM [facility] Hemoglobin 11.0(L) 13.7 - 16.5 g/dL 09/27/2024 6:16 PM [facility] Hematocrit 31.6(L) 40.5 - 48.5 % 09/27/2024 6:16 PM [facility] Mean Cell Volume 84.0 82.9 - 93.1 fL 09/27/2024 6:16 PM [facility] Mean Cell Hemoglobin 29.3 27.5 - 32.1 pg 09/27/2024 6:16 PM [facility] Mean Cell Hemoglobin Concentration 34.8 32.0 - 35.7 g/dL 09/27/2024 6:16 PM [facility] Platelet 322 145 - 357 x10(3)/mc L 09/27/2024 6:16 PM [facility] Mean Platelet Volume 9.4 7.6 - 12.9 fL 09/27/2024 6:16 PM [facility] RDW Standard Deviation 39.4 36.0 - 45.0 fL 09/27/2024 6:16 PM [facility] RDW coefficient of variation 13.0 11.4 - 13.8 % 09/27/2024 6:16 PM [facility] NRBC% auto 0.0 % 09/27/2024 6:16 PM [facility] NRBC Absolute <0.01 <0.01 x10(3)/mc L 09/27/2024 6:16 PM [facility] Blood VENOUS BLOOD SPECIMEN / Unknown Venipuncture / Unknown 09/27/2024 5:55 PM EST 09/27/2024 6:05 PM EST Marko Dickson MD HEMATOLOGY ORDERABLE S Performing Organization Address [facility]/ZIP Co de Phone Number [facility] [place] [address] * POC, GLUCOSE (09/27/2024 5:48 PM EST) Glucometer, POC 171 65 - 199 mg/dL 09/27/2024 5:48 PM EST [facility] Comment:Supplemental ranges: <140 mg/dL before meals <180 mg/dL all other times of the day. 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 Hayley Torres MD MICROBIOLOGY - GENER AL ORDERABLES Performing Organization Address [facility] Co de Phone Number [facility] [place] [address] * (ABNORMAL) Tissue Culture, Aerobic Only (09/27/2024 4:54 PM EST) Tissue Culture Rare Methicillin Resistant Staphylococcus aureus(A) VITEK 2 METHOD 10/01/2024 1:18 PM EST [facility] Gram Stain Few Neutrophils seen 10/01/2024 1:18 PM EST [facility] Gram Stain No microorganisms seen 10/01/2024 1:18 PM EST [facility] Tissue STRUCTURE OF LEFT THIGH [...] - GENER AL ORDERABLES Performing Organization Address City/[facility]/ZIP Co de Phone Number [facility] [place] [address] * Fungus culture (09/27/2024 4:54 PM EST) Fungus Culture No fungus isolated 10/31/2024 7:55 AM EST [facility] Tissue STRUCTURE OF LEFT THIGH / Unknown 09/27/2024 4:54 PM EST 09/27/2024 5:23 PM EST Comment:Infected explanted l eft leg bypass graft Hayley Torres MD MICROBIOLOGY - GENER AL ORDERABLES [facility] [place] [address] * POC, GLUCOSE (09/27/2024 3:23 PM EST) Glucometer, POC 178 65 - 199 mg/dL 09/27/2024 3:23 PM EST [facility] Comment:Supplemental ranges: <140 mg/dL before meals <180 mg/dL all other times of the day. Blood CAPILLARY BLOOD / Unknown 09/27/2024 3:23 PM EST 09/27/2024 3:23 PM EST Marko Dickson MD POINT OF CARE TEST Stephanie VO Performing Organization Address [facility] Co de Phone Number [facility] [place] [address] * POC, GLUCOSE (09/27/2024 11:29 AM EST) Glucometer, POC 181 65 - 199 mg/dL 09/27/2024 11:29 AM EST [facility] Comment:Supplemental ranges: <140 mg/dL before meals <180 mg/dL all other times of the day. Blood CAPILLARY BLOOD / Unknown 09/27/2024 11:29 AM EST 09/27/2024 11:30 AM EST Marko Dickson MD POINT OF CARE TEST Stephanie VO Performing Organization Address [facility] de Phone Number [facility] [place] [address] * CT Lower Extremity w Contrast Left (09/27/2024 9:16 AM EST) WORKSTATION ID [id number] [facility] [place] Anatomical Region Laterality Modality Hip, Leg, Knee, [...] who have questions please contact the health manager respiratory care that requested your imaging first. ? Narrative [...] is wedgedbetween the vastus medialis and adductor [place] muscle. This tracks into thepopliteal fossa and [...] patients who have questions please contactthe health manager respiratory care that requested your imaging first. Rose M Adriana DISH UP PERSON IMG CT ORDERABL ES * POC, GLUCOSE (09/27/2024 7:51 AM EST) [facility] Glucometer, POC 194 65 - 199 mg/dL 09/27/2024 7:51 AM EST [facility] Comment:Supplemental ranges: <140 mg/dL before meals <180 mg/dL all other times of the day. Blood CAPILLARY BLOOD / Unknown 09/27/2024 7:51 AM EST 09/27/2024 7:51 AM EST Marko Dickson MD POINT OF CARE TEST O RDERABLES Performing Organization Address [facility] Co de Phone Number [facility] [place] [address] * (ABNORMAL) MRSA PCR Screen (09/27/2024 7:51 AM EST) [facility] MRSA PCR Detected(A ) 09/27/2024 11:56 AM EST [facility] Swab BOTH ANTERIOR NARES / Unknown Non Blood Collection / Unknown 09/27/2024 7:51 AM EST 09/27/2024 8:05 AM EST Narrative [facility] - 09/27/2024 11:56 AM EST This test was performed using the Xpert MRSA NxG test kit and is run on the [employer] GeneXpert Dx System. This test is cleared by the U.S. Food and Drug Administration for clinical use and its performance characteristics have been verified by the [facility] at [facility]. Marko Dickson MD MOLECULAR ORDERABLES Performing Organization Address City/[facility]/ZIP Co de Phone Number [facility] [place] [address] * Potassium (09/27/2024 7:51 AM EST) [facility] Potassium 3.5 3.5 - 5.0 mMol/L 09/27/2024 9:09 AM EST [facility] Blood VENOUS BLOOD SPECIMEN / Unknown Venipuncture / Unknown 09/27/2024 7:51 AM EST 09/27/2024 8:05 AM EST Marko Dickson MD CHEMISTRY ORDERABLES Performing Organization Address City/[facility]/ZIP Co de Phone Number [facility] [place] [address] * (ABNORMAL) Potassium (09/27/2024 5:05 AM EST) Potassium 3.4(L) 3.5 - 5.0 mMol/L 09/27/2024 5:32 AM EST [facility] Blood VENOUS BLOOD SPECIMEN / Unknown Venipuncture / Unknown 09/27/2024 5:05 AM EST 09/27/2024 5:09 AM EST Marko Dickson MD CHEMISTRY ORDERABLES Performing Organization Address [facility]/ZIP Co de Phone Number [facility] [place] [address] * POC, GLUCOSE (09/27/2024 3:52 AM EST) Glucometer, POC 199 65 - 199 mg/dL 09/27/2024 3:52 AM EST [facility] Comment:Supplemental ranges: <140 mg/dL before meals <180 mg/dL all other times of the day. Blood CAPILLARY BLOOD / Unknown 09/27/2024 3:52 AM EST 09/27/2024 3:52 AM EST Marko Dickson MD POINT OF CARE TEST O RDERABLES Performing Organization Address City/[facility]/ZIP Co de Phone Number [facility] [place] [address] * (ABNORMAL) POC, GLUCOSE (09/27/2024 1:59 AM EST) Glucometer, POC 219(H) 65 - 199 mg/dL 09/27/2024 2:00 AM EST [facility] Comment:Supplemental ranges: <140 mg/dL before meals <180 mg/dL all other times of the day. Blood CAPILLARY BLOOD / Unknown 09/27/2024 1:59 AM EST 09/27/2024 2:00 AM EST Marko Dickson MD POINT OF CARE TEST O RDERABLES Performing Organization Address City/[facility]/ZIP Co de Phone Number [facility] [place] [address] * (ABNORMAL) Magnesium (09/27/2024 12:01 AM EST) Magnesium 0.68(L) 0.69 - 1.07 mMol/L 09/27/2024 12:35 AM [facility] Blood VENOUS BLOOD SPECIMEN / Unknown Venipuncture / Unknown 09/27/2024 12:01 AM EST 09/27/2024 12:05 AM EST Hayley Torres MD CHEMISTRY ORDERABLES Performing Organization Address City/[facility]/ZIP Co de Phone Number [facility] [place] [address] * (ABNORMAL) Basic Metabolic Panel (09/27/2024 12:01 AM EST) Glucose 261(H) 65 - 199 mg/dL 09/27/2024 12:35 AM [facility] Comment:Glucose Concentratio n >=200 mg/dL plus symptoms is consistent with Diabetes Mellitus. Blood Urea Nitrogen 7(L) 10 - 20 mg/dL 09/27/2024 12:35 AM EST [facility] Creatinine 0.45(L) 0.80 - 1.50 mg/dL 09/27/2024 12:35 AM EST [facility] Sodium 128(L) 135 - 145 mMol/L 09/27/2024 12:35 AM [facility] Potassium 3.3(L) 3.5 - 5.0 mMol/L 09/27/2024 12:35 AM [facility] Chloride 92(L) 98 - 107 mMol/L 09/27/2024 12:35 AM EST [facility] Carbon Dioxide 23 22 - 31 mMol/L 09/27/2024 12:35 AM [facility] Anion Gap 13 5 - 15 mMol/L 09/27/2024 12:35 AM [facility] Calcium 8.5 8.5 - 10.5 mg/dL 09/27/2024 12:35 AM EST [facility] Est Glomerular Filtration Rate - Male 128 mL/min/1. 73 m?? 09/27/2024 12:35 AM EST [facility] Comment: This [...] AM EST Hayley Torres MD CHEMISTRY ORDERABLES [facility] [place] [address] * (ABNORMAL) CBC (with Diff) (09/27/2024 12:01 AM EST) White Blood Cell 23.20(H) 4.00 - 9.50 x10(3)/mc L 09/27/2024 12:10 AM EST [facility] Red Blood Cell 4.07(L) 4.58 - 5.54 x10(6)/mc L 09/27/2024 12:10 AM EST [facility] Hemoglobin 11.7(L) 13.7 - 16.5 g/dL 09/27/2024 12:10 AM [facility] Hematocrit 33.6(L) 40.5 - 48.5 % 09/27/2024 12:10 AM [facility] Mean Cell Volume 82.6(L) 82.9 - 93.1 fL 09/27/2024 12:10 AM [facility] Mean Cell Hemoglobin 28.7 27.5 - 32.1 pg 09/27/2024 12:10 AM [facility] Mean Cell Hemoglobin Concentration 34.8 32.0 - 35.7 g/dL 09/27/2024 12:10 AM [facility] Platelet 296 145 - 357 x10(3)/mc L 09/27/2024 12:10 AM [facility] Mean Platelet Volume 9.5 7.6 - 12.9 fL 09/27/2024 12:10 AM [facility] RDW Standard Deviation 37.9 36.0 - 45.0 fL 09/27/2024 12:10 AM [facility] RDW coefficient of variation 12.6 11.4 - 13.8 % 09/27/2024 12:10 AM [facility] NRBC% auto 0.0 % 09/27/2024 12:10 AM [facility] NRBC Absolute <0.01 <0.01 x10(3)/mc L 09/27/2024 12:10 AM [facility] Neutrophil % 83.7 % 09/27/2024 12:10 AM [facility] Neutrophil Absolute (ANC) - Automated 19.43(H) 1.70 - 6.10 x10(3)/mc L 09/27/2024 12:10 AM [facility] Lymph % 6.7 % 09/27/2024 12:10 AM [facility] Lymph Absolute 1.56 0.90 - 3.20 x10(3)/mc L 09/27/2024 12:10 AM [facility] Monocyte % 7.8 % 09/27/2024 12:10 AM EST [facility] Monocyte Absolute 1.80(H) 0.30 - 0.90 x10(3)/mc L 09/27/2024 12:10 AM [facility] Eos % 0.2 % 09/27/2024 12:10 AM [facility] Eos Absolute 0.04 0.00 - 0.40 x10(3)/mc L 09/27/2024 12:10 AM [facility] Basophil % 0.5 % 09/27/2024 12:10 AM [facility] Baso Absolute 0.12(H) 0.00 - 0.10 x10(3)/mc L 09/27/2024 12:10 AM [facility] Immature Gran % 1.1 % 12:10 AM [facility] Immature Gran Absolute 0.25(H) 0.00 - 0.04 x10(3)/mc L 09/27/2024 12:10 AM [facility] Blood VENOUS BLOOD SPECIMEN / Unknown Venipuncture / Unknown 09/27/2024 12:01 AM EST 09/27/2024 12:05 AM EST Hayley Torres MD HEMATOLOGY ORDERABLE S [facility] [place] [address] * (ABNORMAL) POC, GLUCOSE (09/26/2024 11:59 PM EST) Glucometer, POC 251(H) 65 - 199 mg/dL 09/26/2024 11:59 PM EST [facility] Comment:Supplemental ranges: <140 mg/dL before meals <180 mg/dL all other times of the day. Blood CAPILLARY BLOOD / Unknown 09/26/2024 11:59 PM EST 09/26/2024 11:59 PM EST Marko Dickson MD POINT OF CARE TEST O RDTYESHA Performing Organization Address City/[facility]/ZIP Co de Phone Number [facility] [place] [address] * (ABNORMAL) POC, GLUCOSE (09/26/2024 7:34 PM EST) [facility] Glucometer, POC 204(H) 65 - 199 mg/dL 09/26/2024 7:34 PM EST [facility] Comment:Supplemental ranges: <140 mg/dL before meals <180 mg/dL all other times of the day. Blood CAPILLARY BLOOD / Unknown 09/26/2024 7:34 PM EST 09/26/2024 7:35 PM EST Marko Dickson MD POINT OF CARE TEST O GILDA Performing Organization Address [facility] Co de Phone Number [facility] [place] [address] * (ABNORMAL) Blood culture (09/26/2024 6:45 PM EST) [facility] Blood Culture Methicillin Resistant Staphylococcus aureus(Critical) 10/01/2024 6:58 AM EST [facility] Comment: isolated. Susceptibilities previously reported. Gram Stain Aerobic Bottle: Gram positive cocci in clusters(Critical ) 10/01/2024 6:58 AM EST [facility] Blood VENOUS BLOOD SPECIMEN / Unknown Venipuncture / Unknown 09/26/2024 6:45 PM EST 09/26/2024 6:48 PM EST Marko Dickson MD MICROBIOLOGY - BLOOD ORDERABLES Performing Organization Address City/[facility]/ZIP Co de Phone Number [facility] [place] [address] * (ABNORMAL) Sonicated Tissue/Implant Culture (09/26/2024 5:16 PM EST) Sonicated Tissue/Implan t Culture Methicillin Resistant Staphylococcus aureus(A) VITEK 2 METHOD 09/30/2024 1:49 PM EST [facility] Comment: isolated from broth culture. Susceptibilities previously reported. Vascular Graft STRUCTURE OF LEFT LOWER LIMB / Unknown Non Blood Collection / Unknown 09/26/2024 5:16 PM EST 09/26/2024 5:45 PM EST Marko Dickson MD MICROBIOLOGY - GENER AL ORDERABLES Performing Organization Address [facility]/ZIP Co de Phone Number [facility] [place] [address] * Anaerobic Culture (09/26/2024 5:02 PM EST) Anaerobic Culture No anaerobic organisms isolated 09/30/2024 3:51 PM EST [facility] Abscess STRUCTURE OF LEFT KNEE REGION / Unknown Non Blood Collection / Unknown 09/26/2024 5:02 PM EST Comment:Left Below Knee popl iteal fluid Please perform Gram stain if not included in order Hayley Torres MD MICROBIOLOGY - GENER AL ORDERABLES Performing Organization Address City/[facility]/ZIP Co de Phone Number [facility] [place] [address] * (ABNORMAL) Abscess/Wound Aspirate Culture, Aerobic Only (09/26/2024 5:02 PM EST) Abscess/Wound Aspirate Culture Many Methicillin Resistant Staphylococcus aureus(A) VITEK 2 METHOD 09/30/2024 1:37 PM EST [facility] Gram Stain Many neutrophils(A) 09/30/2024 1:37 PM EST [facility] Gram Stain Many Gram positive cocci(A) 09/30/2024 1:37 PM EST [facility] Abscess STRUCTURE OF LEFT KNEE [...] - GENER AL ORDERABLES Performing Organization Address [facility] Co de Phone Number [facility] [place] [address] * Fungus culture (09/26/2024 5:02 PM EST) Fungus Culture No fungus isolated 10/24/2024 7:54 AM EST [facility] Abscess STRUCTURE OF LEFT KNEE REGION / Unknown Non Blood Collection / Unknown 09/26/2024 5:02 PM EST 09/26/2024 5:08 PM EST Comment:Left Below Knee popl iteal fluid Please perform Gram stain if not included in order Hayley Torres MD MICROBIOLOGY - GENER AL ORDERABLES Performing Organization Address [facility] Co de Phone Number [facility] [place] [address] * Anaerobic Culture (09/26/2024 4:50 PM EST) Anaerobic Culture No anaerobic organisms isolated 09/30/2024 3:51 PM EST [facility] Abscess LEFT INGUINAL REGION STRUCTURE / Unknown Non Blood Collection / Unknown 09/26/2024 4:50 PM EST Comment:Left Groin Fluid Hayley Torres MD MICROBIOLOGY - GENER AL ORDERABLES Performing Organization Address [facility]/ZIP Co de Phone Number [facility] [place] [address] * (ABNORMAL) Abscess/Wound Aspirate Culture, Aerobic Only (09/26/2024 4:50 PM EST) Abscess/Wound Aspirate Culture Many Methicillin Resistant Staphylococcus aureus(A) VITEK 2 METHOD 09/30/2024 1:36 PM EST [facility] Gram Stain Many neutrophils(A) 09/30/2024 1:36 PM EST [facility] Gram Stain Many Gram positive cocci(A) 09/30/2024 1:36 PM EST [facility] Abscess LEFT INGUINAL REGION STRUCTURE [...] Torres MD MICROBIOLOGY - [place] [address] * Fungus culture (09/26/2024 4:50 PM EST) Fungus Culture No fungus isolated 10/24/2024 7:54 AM EST [facility] Abscess LEFT INGUINAL REGION STRUCTURE / Unknown Non Blood Collection / Unknown 09/26/2024 4:50 PM EST 09/26/2024 4:56 PM EST Comment:Left Groin Fluid Hayley Torres MD MICROBIOLOGY - GENER AL ORDERABLES [facility] [place] [address] * (ABNORMAL) Blood Gas, Arterial POC (09/26/2024 4:43 PM EST) pH, Arterial 7.38 7.35 - 7.45 09/27/2024 7:41 AM [facility] PCO2, Arterial 41 35 - 45 mmHg 09/27/2024 7:41 AM [facility] PO2, Arterial 96 85 - 104 mmHg 09/27/2024 7:41 AM [facility] Bicarbonate, Arterial 23.8 20.0 - 26.0 mmol/L 09/27/2024 7:41 AM [facility] Base Excess, Arterial -1.4 -3.0 - 3.0 mmol/L 09/27/2024 7:41 AM [facility] Hemoglobin, Arterial 12.6(L) 13.7 - 16.5 g/dL 09/27/2024 7:41 AM [facility] Oxyhemoglobin, Arterial 96.2 94.0 - 97.0 % 09/27/2024 7:41 AM [facility] Carboxyhemoglobin , Arterial 0.3 % 09/27/2024 7:41 AM [facility] Comment: Nonsmokers: 0.5-1.5% COHB ?? Smokers: Variable ??but usually less than 10% ?? Toxic: 20-30% COHB ?? Lethal: Greater than 60% COHB Methemoglobin, Arterial 0.3 <=1.5 % 09/27/2024 7:41 AM [facility] Sodium, Arterial 128(L) 135 - 145 mmol/L 09/27/2024 7:41 AM [facility] Potassium, Arterial 3.0(LLL) 3.5 - 5.0 mmol/L 09/27/2024 7:41 AM [facility] Chloride, Arterial 95(L) 98 - 107 mmol/L 09/27/2024 7:41 AM [facility] Lactate, Arterial 1.7 0.5 - 2.2 mmol/L 09/27/2024 7:41 AM [facility] IONIZED CALCIUM, ARTERIAL 1.09(L) 1.15 - 1.33 mmol/L 09/27/2024 7:41 AM [facility] Glucose, Arterial 205(H) 65 - 199 mg/dL 09/27/2024 7:41 AM [facility] Comment:Glucose Concentratio n >=200 mg/dL plus symptoms is consistent with Diabetes Mellitus. Blood ARTERIAL BLOOD / Unknown 09/26/2024 4:43 PM EST 09/27/2024 7:41 AM EST Marko Dickson MD POINT OF CARE TEST O GILDA Performing Organization Address City/[facility]/ZIP Co de Phone Number [facility] [place] [address] * (ABNORMAL) POC, GLUCOSE (09/26/2024 4:29 PM EST) [facility] Signature Glucometer, POC 213(H) 65 - 199 mg/dL 09/26/2024 4:30 PM EST [facility] Comment:Supplemental ranges: <140 mg/dL before meals <180 mg/dL all other times of the day. Blood CAPILLARY BLOOD / Unknown 09/26/2024 4:29 PM EST 09/26/2024 4:30 PM EST Marko Dickson MD POINT OF CARE TEST O GILDA [facility] [place] [address] * (ABNORMAL) Blood Gas, Venous POC (09/26/2024 3:28 PM EST) [facility] pH, Venous 7.43(H) 7.32 - 7.42 09/26/2024 3:30 PM [facility] PCO2, Venous 41 38 - 58 mmHg 09/26/2024 3:30 PM [facility] PO2, Venous 18 16 - 65 mmHg 09/26/2024 3:30 PM [facility] Bicarbonate, Venous 26.6 22 - 31 mmol/L 09/26/2024 3:30 PM [facility] Base Excess, Venous 2.3 1.9 - 4.5 mmol/L 09/26/2024 3:30 PM [facility] [facility] Hemoglobin, Venous 12.4(L) 13.7 - 16.5 g/dL 09/26/2024 3:30 PM [facility] Oxyhemoglobin, Venous 26.8 % 09/26/2024 3:30 PM [facility] Carboxyhemoglobin , Venous 1.0 % 09/26/2024 3:30 PM [facility] Comment: Nonsmokers: 0.5-1.5% COHB ?? Smokers: Variable ??but usually less than 10% ?? Toxic: 20-30% COHB ?? Lethal: Greater than 60% COHB Methemoglobin, Venous 0.4 <=1.5 % 09/26/2024 3:30 PM [facility] Sodium, Venous 127(L) 135 - 145 mmol/L 09/26/2024 3:30 PM [facility] Potassium, Venous 3.3(L) 3.5 - 5.0 mmol/L 09/26/2024 3:30 PM [facility] Chloride, Venous 91(L) 98 - 107 mmol/L 09/26/2024 3:30 PM [facility] Glucose, Venous 259(H) 65 - 199 mg/dL 09/26/2024 3:30 PM [facility] Comment:Glucose Concentratio n >=200 mg/dL plus symptoms is consistent with Diabetes Mellitus. Lactate, Venous 2.2 0.5 - 2.2 mmol/L 09/26/2024 3:30 PM EST [facility] Ionized Calcium, Venous 1.09(L) 1.15 - 1.33 mmol/L 09/26/2024 3:30 PM EST [facility] Blood VENOUS BLOOD SPECIMEN / Unknown 09/26/2024 3:28 PM EST 09/26/2024 3:30 PM EST Marko Dickson MD POINT OF CARE TEST O RDERABLES [facility] [place] [address] * (ABNORMAL) Scan, Peripheral Blood (09/26/2024 2:39 PM EST) Pathologist [facility] RBC Morphology Abnormal 09/26/2024 3:21 PM EST [facility] Platelet Estimate Normal Normal 09/26/2024 3:21 PM EST [facility] Microcyte 1-5 /HPF 09/26/2024 3:21 PM EST [facility] Platelet Clumps Present(A) (none) 3:21 PM EST [facility] WBC MORPHOLOGY See Comment(A) (none) 09/26/2024 3:21 PM EST [facility] Comment:Dohle BodiesToxic Gr anulation Blood VENOUS BLOOD SPECIMEN / Unknown Venipuncture / Unknown 09/26/2024 2:39 PM EST 09/26/2024 2:50 PM EST Marko Dickson MD HEMATOLOGY ORDERABLE S [facility] [place] [address] * ABORH RECHECK (PATIENT HISTORY FOUND) (09/26/2024 2:39 PM EST) ABORH Recheck Progress Complete 09/26/2024 5:01 PM EST [facility] Blood VENOUS BLOOD SPECIMEN / Unknown Venipuncture / Unknown 09/26/2024 2:39 PM EST 09/26/2024 2:56 PM EST Marko Dickson MD BLOOD BANK LAB ORDER RANDELL [facility] [place] [address] * (ABNORMAL) Hepatic Function Panel (09/26/2024 2:39 PM EST) Pathologist [facility] Albumin 3.1(L) 3.2 - 5.2 g/dL 09/26/2024 4:23 PM EST [facility] Aspartate Aminotransferase 16 <=39 unit/L 09/26/2024 4:23 PM [facility] Alanine Aminotransferase 14 0 - 55 unit/L 09/26/2024 4:23 PM [facility] Alkaline Phosphatase 160(H) 40 - 130 unit/L 09/26/2024 4:23 PM [facility] Bilirubin, Total 0.4 <=1.3 mg/dL 09/26/2024 4:23 PM [facility] Bilirubin, Direct 0.2 0.0 - 0.3 mg/dL 09/26/2024 4:23 PM [facility] Protein, Total 7.0 6.1 - 8.0 g/dL 09/26/2024 4:23 PM EST [facility] Blood VENOUS BLOOD SPECIMEN / Unknown Venipuncture / Unknown 09/26/2024 2:39 PM EST 09/26/2024 2:50 PM EST Marko Dickson MD CHEMISTRY ORDERABLES [facility] [place] [address] * (ABNORMAL) Basic Metabolic Panel (09/26/2024 2:39 PM EST) Glucose 254(H) 65 - 199 mg/dL 09/26/2024 4:32 PM EST [facility] Comment:Glucose Concentratio n >=200 mg/dL plus symptoms is consistent with Diabetes Mellitus. Blood Urea Nitrogen 9(L) 10 - 20 mg/dL 09/26/2024 4:32 PM [facility] Creatinine 0.55(L) 0.80 - 1.50 mg/dL 09/26/2024 4:32 PM [facility] Sodium 127(L) 135 - 145 mMol/L 09/26/2024 4:32 PM [facility] Potassium 3.4(L) 3.5 - 5.0 mMol/L 09/26/2024 4:32 PM [facility] Chloride 89(L) 98 - 107 mMol/L 09/26/2024 4:32 PM [facility] Carbon Dioxide 25 22 - 31 mMol/L 09/26/2024 4:32 PM [facility] Anion Gap 13 5 - 15 mMol/L 09/26/2024 4:32 PM [facility] Calcium 8.9 8.5 - 10.5 mg/dL 09/26/2024 4:32 PM [facility] Est Glomerular Filtration Rate - Male 121 mL/min/1. 73 m?? 09/26/2024 4:32 PM [facility] Comment: This patient's estimated GFR was [...] PM EST Hayley Torres MD CHEMISTRY ORDERABLES [facility] [place] [address] * (ABNORMAL) CBC (with Diff) (09/26/2024 2:39 PM EST) White Blood Cell 22.76(H) 4.00 - 9.50 x10(3)/mc L 09/26/2024 3:21 PM [facility] Red Blood Cell 4.20(L) 4.58 - 5.54 x10(6)/mc L 09/26/2024 3:21 PM [facility] Hemoglobin 12.3(L) 13.7 - 16.5 g/dL 09/26/2024 3:21 PM [facility] Hematocrit 35.0(L) 40.5 - 48.5 % 09/26/2024 3:21 PM [facility] Mean Cell Volume 83.3 82.9 - 93.1 fL 09/26/2024 3:21 PM [facility] Mean Cell Hemoglobin 29.3 27.5 - 32.1 pg 09/26/2024 3:21 PM [facility] Mean Cell Hemoglobin Concentration 35.1 32.0 - 35.7 g/dL 09/26/2024 3:21 PM [facility] Platelet 277 145 - 357 x10(3)/mc L 09/26/2024 3:21 PM [facility] Mean Platelet Volume 9.6 7.6 - 12.9 fL 09/26/2024 3:21 PM [facility] RDW Standard Deviation 37.9 36.0 - 45.0 fL 09/26/2024 3:21 PM [facility] RDW coefficient of variation 12.6 11.4 - 13.8 % 09/26/2024 3:21 PM [facility] NRBC% auto 0.0 % 09/26/2024 3:21 PM [facility] NRBC Absolute <0.01 <0.01 x10(3)/mc L 09/26/2024 3:21 PM [facility] Neutrophil % 84.0 % 09/26/2024 3:21 PM [facility] Comment:This is an appended report. These results have been appended to a previously preliminary verified report. Neutrophil Absolute (ANC) - Automated 19.10(H) 1.70 - 6.10 x10(3)/mc L 09/26/2024 3:21 PM [facility] Comment:This is an appended report. These results have been appended to a previously preliminary verified report. Lymph % 6.2 % 09/26/2024 3:21 PM [facility] Comment:This is an appended report. These results have been appended to a previously preliminary verified report. Lymph Absolute 1.41 0.90 - 3.20 x10(3)/mc L 09/26/2024 3:21 PM [facility] Comment:This is an appended report. These results have been appended to a previously preliminary verified report. Monocyte % 8.1 % 09/26/2024 3:21 PM [facility] Comment:This is an appended report. These results have been appended to a previously preliminary verified report. Monocyte Absolute 1.85(H) 0.30 - 0.90 x10(3)/mc L 09/26/2024 3:21 PM [facility] Comment:This is an appended report. These results have been appended to a previously preliminary verified report. Eos % 0.0 % 09/26/2024 3:21 PM [facility] Comment:This is an appended report. These results have been appended to a previously preliminary verified report. Eos Absolute <0.04 0.00 - 0.40 x10(3)/mc L 09/26/2024 3:21 PM [facility] Comment:This is an appended report. These results have been appended to a previously preliminary verified report. Basophil % 0.5 % 09/26/2024 3:21 PM [facility] Comment:This is an appended report. These results have been appended to a previously preliminary verified report. Baso Absolute 0.11(H) 0.00 - 0.10 x10(3)/mc L 09/26/2024 3:21 PM EST [facility] Comment:This is an appended report. These results have been appended to a previously preliminary verified report. Immature Gran % 1.2 % 3:21 PM EST [facility] Comment:This is an appended report. These results have been appended to a previously preliminary verified report. Immature Gran Absolute 0.28(H) 0.00 - 0.04 x10(3)/mc L 09/26/2024 3:21 PM EST [facility] Comment:This is an appended report. These results have been appended to a previously preliminary verified report. Blood VENOUS BLOOD SPECIMEN / Unknown Venipuncture / Unknown 09/26/2024 2:39 PM EST 09/26/2024 2:50 PM EST Hayley Torres MD HEMATOLOGY ORDERABLE S [facility] [place] [address] * Phosphorus (09/26/2024 2:39 PM EST) Phosphorus 3.2 2.5 - 4.5 mg/dL 09/26/2024 4:05 PM EST [facility] Blood VENOUS BLOOD SPECIMEN / Unknown Venipuncture / Unknown 09/26/2024 2:39 PM EST 09/26/2024 2:50 PM EST Marko Dickson MD CHEMISTRY ORDERABLES [facility] [place] [address] * (ABNORMAL) Magnesium (09/26/2024 2:39 PM EST) Magnesium 0.65(L) 0.69 - 1.07 mMol/L 09/26/2024 4:05 PM EST [facility] Blood VENOUS BLOOD SPECIMEN / Unknown Venipuncture / Unknown 09/26/2024 2:39 PM EST 09/26/2024 2:50 PM EST Marko Dickson MD CHEMISTRY ORDERABLES Performing Organization Address City/[facility]/ZIP Co de Phone Number [facility] [place] [address] * Type and screen ([facility]/P/BABITA) (09/26/2024 2:39 PM EST) [facility] ABORH Type A POSITIVE 09/26/2024 3:45 PM EST [facility] PATIENT HISTORY Found 09/26/2024 3:45 PM EST [facility] Expires at [id number] on: 09/29/2024 09/26/2024 3:45 PM EST [facility] ANTIBODY SCREEN AUTOMATED Negative 09/26/2024 3:45 PM EST [facility] T&S only valid at [facility] 09/26/2024 3:45 PM EST [facility] Blood VENOUS BLOOD SPECIMEN / Unknown Venipuncture / Unknown 09/26/2024 2:39 PM EST 09/26/2024 2:56 PM EST Narrative [facility] - 09/26/2024 3:45 PM EST This Type and Screen result is only valid at the [facility] Marko Dickson MD BLOOD BANK LAB ORDER RANDELL Performing Organization Address City/[facility] Co de Phone Number [facility] [place] [address] * (ABNORMAL) Fibrinogen (09/26/2024 2:39 PM EST) [facility] Fibrinogen >1,000(H) 200 - 393 mg/dL 09/26/2024 3:09 PM EST [facility] Comment: A fibrinogen level >100 mg/dL is adequate for hemostasis in most patients without underlying bleeding disorders. Blood VENOUS BLOOD SPECIMEN / Unknown Venipuncture / Unknown 09/26/2024 2:39 PM EST 09/26/2024 2:50 PM EST Marko Dickson MD HEMATOLOGY ORDERABLE S Performing Organization Address [facility] Co de Phone Number [facility] [place] [address] * APTT (09/26/2024 2:39 PM EST) Partial Thromboplastin Time 36 25 - 37 sec 09/26/2024 3:09 PM EST [facility] Comment: The [...] MD HEMATOLOGY ORDERABLE S Performing Organization Address [facility] Phone Number [facility] [place] [address] * (ABNORMAL) Prothrombin Time (09/26/2024 2:39 PM EST) Prothrombin Time 21.6(H) 9.4 - 12.5 sec 09/26/2024 3:09 PM EST [facility] International Normalization Ratio 1.9 <=4.9 09/26/2024 3:09 PM EST [facility] Comment: An INR < 2.0 [...] EST Marko Dickson MD HEMATOLOGY ORDERABLE S [facility] [place] [address] * (ABNORMAL) POC, GLUCOSE (09/26/2024 2:36 PM EST) Glucometer, POC 268(H) 65 - 199 mg/dL 09/26/2024 2:36 PM EST [facility] Comment:Supplemental ranges: <140 mg/dL before meals <180 mg/dL all other times of the day. Blood CAPILLARY BLOOD / Unknown 09/26/2024 2:36 PM EST 09/26/2024 2:36 PM EST Marko Dickson MD POINT OF CARE TEST O RDERABLES Performing Organization Address City/[facility]/ZIP Co de Phone Number [facility] [place] [address] * (ABNORMAL) Blood culture (09/26/2024 2:22 PM EST) Blood Culture Methicillin Resistant Staphylococcus aureus(Critical) VITEK 2 METHOD 10/07/2024 7:40 AM EST [facility] Comment: detected by PCR Isolate saved. If future testing is required, contact the Microbiology Calciner Operator. Gram Stain Aerobic Bottle: Gram positive cocci in clusters(Critical ) 10/07/2024 7:40 AM EST [facility] Blood VENOUS [...] Marko Dickson MD MICROBIOLOGY - BLOOD ORDERABLES [facility] [place] [address] * Request For 2nd Read CT Lower Extremity (09/26/2024 1:50 PM EST) [facility] WORKSTATION ID [id number] RAD Anatomical Region Laterality Modality Hip, Leg, [...] who have questions please contact the health manager respiratory care that requested your imaging first. ? Narrative 09/26/2024 3:01 PM EST EXAMINATION: REQUEST FOR 2ND READ CT LOWER EXTREMITY CLINICAL HISTORY: Pt s/p LLE femoral-below knee popliteal bypass with PTFE graft, c/f infection surrounding graft, en route to [facility] for possible vascular surgery intervention; Sending Institution [facility]; Date of exam [id number]; I believe a [...] series 3, image 8 and 641, 842, 674, 642. No other rim-enhancing fluid collection is seen. [...] c/f infection surrounding graft, en route to [facility] for possiblevascular surgery intervention; Sending Institution [facility]; Date of exam [id number]; Ibelieve a reinterpretation [...] patients who have questions please contactthe health manager respiratory care that requested your imaging first. Marko Dickson [...] appropriate choice: ID Approval by Amaya Hernandez New Bag 10/09/2024 9:16 PM EST 700 [...] appropriate choice: ID Approval by Amaya Hernandez New Bag 10/10/2024 2:46 PM EST 700 [...] (10 mL), Subcutaneous, ONCE, 1 dose, On 10/09/24 at 1045, For wound vac change, Routine [...] 1 g, Intravenous, ONCE, 1 dose, On Wed10/01/24 at 0600, Administer over 60 Minutes New [...] 8 HOURS, 5 doses, First dose on Tu09/26/24 at 1500, Last dose on Wed09/27/24 at 1500, Administer over 4 Hours, Warning Vesicant/Irritant Medication Per warp dyeing tender labeling, do not administer or Y-site with lactated ringers., Indication for (Active or Suspected): Other (See comment) / PTFE vascular graft associated infection Bolus 09/27/2024 3:47 PM EST 3.375 g New Bag 09/27/2024 2:45 PM EST 3.375 g 12.5 mL/hr New Bag 09/27/2024 6:09 AM EST 3.375 g 12.5 mL/hr polyethylene glycoL (Miralax) packet 17 g 17 g, Oral, DAILY, First dose on 09/29/24 at 0900, Until Discontinued, Routine Given 09/30/2024 8:54 AM EST 17 g Given 09/29/2024 8:26 AM EST 17 g polyethylene glycoL (Miralax) packet 17 g 17 g, Oral, DAILY PRN, Starting on 10/01/24 at 0848, Until Tu10/10/24 at 1912, Constipation, Give if no BM within last 24 hr. Give concomitantly with any scheduled bowel medications ordered. , Routine Given 10/07/2024 6:59 PM EST 17 g polyethylene glycoL (Miralax) packet 17 g 17 g, Oral, DAILY, First dose on 10/02/24 at 1015, Until Discontinued, Routine Given 10/03/2024 [...] 60 mEq, Oral, ONCE, 1 dose, On Wed09/27/24 at 0130, potassium chloride ER particle/crystal tablets [...] 60 mEq, Oral, ONCE, 1 dose, On Wed09/28/24 at 0100, potassium chloride ER particle/crystal tablets [...] PM EST 1,250 mg 200 mL/hr New 09/27/2024 3:19 PM EST 1,250 mg 200 [...] 10:04 AM EST 1.5 g 333.3 mL/hr New Bag 10/04/2024 12:16 AM EST 1.5 g 333.3 mL/hr New Bag 10/03/2024 4:57 PM EST 1.5 g 333.3 [...] Tracey RN) 0035 (Given - Provider: Jordyn A Navas, RN)0616 (Given - Provider: Jordyn Navas RN)1222 [...] 2115 (New Bag - Provider: Lauren Zavala RN)214 (Stopped - Provider: Lauren Zavala RN) DAPTOmycin [...] DAVID) 0834 (Given - Provider: Terell Araiza, DAVID) insulin lispro (HumaLOG;Admelog) (100 unit/mL) subcutaneous [...] Order parameters not met)0747 (Given - Provider: eTrell Araiza RN - Comment: BG 141)1112 (Given [...] Until Discontinued, Routine 0859 (Given - Provider: Idnira Tracey RN) 09 (Given - Provider: Jaja Diallo RN) 0832 (Given - Provider: Terell Araiza RN) magnesium oxide (Mag-Ox) tablet 400 mg 400 mg, Oral, 2 TIMES DAILY, First dose on Wed09/30/24 at 1200, Until Discontinued, Routine 0900 (Given - Provider: Indira Tracey RN)2027 (Given - Provider: Jordyn Navas RN) 09 (Given - Provider: Jaja Dilalo, DAVID)2022 (Given - Provider: Lauren Zavala RN) 0831 (Given - Provider: Terell Araiza RN) melatonin tablet 3 mg 3 mg, Oral, NIGHTLY, First dose on Wed10/02/24 at 0015, Until Discontinued, Routine 2027 (Given - Provider: Jordyn Navas, DAVID) 202 (Given - Provider: Lauren Zavala RN) methylphenidate [...] 4 HOURS PRN, Starting on Wed09/27/24 at 09, Until Wed10/10/24 at 1911, Pain, moderate pain [...] Routine documented in this encounter Care Teams Corporate Sales Representative Relationship Specialty Start Date End Date [place] [address] PCP - General Internal Medicine 09/18/24 documented as of this encounter
--- OUTSIDE RECORDS SUMMARY | 2024-10-31 15:30 | XMS_ITS | Encounter Summary ---
Author Organization [facility] [place] [address] Care Team Providers Care Certified Peer Specialist Name Role Phone Charles Romero Primary Care Provider + Reason for Visit * Auth/Cert (Routine) Specialty Diagnoses / Procedures Referred By William t Referred To Contact Diagnoses Vascular graft infection, initial encounter Sepsis [A41.9] T82.7XXA Procedures EMERGENCY IPI Angel Gonsalez MD [facility] [place] [address] [facility] Referral ID Status Reason Start Date Expiration Date Visits Re quested Visits Authorized [id number] 1 1 Encounter Details Date Type Department Care Team (Late st Contact Info) Description 10/04/2024 3:08 PM EST Anesthesia [place] [address] Isabel Longoria MD [facility] [place] [address] Lizett Mackay MD [facility] [place] [address] Anesthesia Record Procedure Summary Procedure Name Responsible [...] by Alan Tobias RN 10/06/24 0942 by Linaa Mccormack RN Incision 09/28/24; 1329; Left , [...] (15F round drain with bulb); removed by DIVIDING MACHINE OPERATOR; 10/09/24; 1000 10/02/24 1424 by Guanako Liao RN 10/09/24 1000 by Indira Tracey RN PIV 10/04/24; 1115; [id number] catheter system; 22 gauge; basilic vein (medial [...] oz pur e alcohol) [facility] Utilities Answer Date Recorded In the past 12 months has th e [employer], gas, oil, or water [employer] threatened to shut off services in your [...] any time in the past 12 m [facility], were you homeless or living in a penitentiary (including now)? No 09/27/2024 DH IPV Inpatient [...] Procedure Summary Date: 10/04/24 Room / Location: [facility] OR [address] [place] [address] MAIN OR Anesthesia Start: 1508 Anesthesia Stop: 162 Procedure: DEBRIDEMENT SKIN AND SUBCU, LOWER EXTREMITY (WRVU 1.01) (Left: Leg) Diagnosis: (Status post explant of infected left USER EXPERIENCE ARCHITECT-BK pop bypass graft) Surgeons: Marko Dickson MD Responsible Provider: Isabel Longoria MD Anesthesia Type: general ASA Status: 4 All Anesthesia Providers: Anesthesiologist: Lizett Mackay MD; Isabel Longoria MD LOADING MACHINE OPERATOR: Tato Bhatt CRNA Vitals Value Taken Time BP 134/75 10/04/24 1700 Temp 36.2 ??C (97.2 ??F) 10/04/24 1700 Pulse 75 10/04/24 1712 Resp 11 10/04/24 1712 SpO2 98 % 10/04/24 1712 Pain Level 0 10/04/24 1700 Vitals shown include unfiled device data. Patient Location: PACU/[facility] Level of Consciousness: Awake and Alert Pain [...] 3.51) performed by Thony Garcia MD at [facility] MAIN OR PRO BYPASS GRAFT OTHR, FEM-TIBIAL Left 08/01/2024 @BYPASS GRAFT, FEM-ANT TIBIAL, -POST TIBIAL, -PERONEAL, -DP W\ SYNTHETIC CONDUIT (WRVU 23.66) performed by Lisette Maldonado MD at [facility] MAIN OR PRO CABG, ARTERY-VEIN, SINGLE 01/04/2012 @CABG, VENOUS & ARTERIAL GRAFT;SINGLE VEIN GRAFT performed by INNA TOVAR at [facility] MAIN OR PRO DEBRIDEMENT MUSCLE AND FASCIA 20 SQ CM/< Left 09/29/2024 DEBRIDEMENT SKIN, SUBCU, MUSCLE, LOWER EXTREMITY (WRVU 2.7) performed by Taylor Ruiz MD at [facility] MAIN OR PRO DEBRIDEMENT MUSCLE AND FASCIA 20 SQ CM/< Left 10/02/2024 DEBRIDEMENT SKIN, SUBCU, MUSCLE, LOWER EXTREMITY (WRVU 2.7) performed by Hermila Mccormick MDat [facility] MAIN OR PRO DEBRIDEMENT SUBCUTANEOUS TISSUE 20 SQCM/< Left 09/27/2024 DEBRIDEMENT SKIN AND SUBCU, LOWER EXTREMITY (WRVU 1.01) performed by Hayley Torres MD at [facility] MAIN OR PRO DRAIN LOWER LEG DEEP ABSC/HEMATOMA Left 09/26/2024 INCISION & DRAINAGE, LEG OR ANKLE, DEEP ABSCESS OR HEMATOMA (WRVU 5.23) performed by Hayley Torres MD at [facility] MAIN OR PRO DRAIN LOWER LEG DEEP ABSC/HEMATOMA 09/27/2024 INCISION & DRAINAGE, LEG OR ANKLE, DEEP ABSCESS OR HEMATOMA (WRVU 5.23) performed by Hayley Torres MD at [facility] OR PRO ENDOSCOPY W/VIDEO-ASST VEIN HARVEST, CABG 01/04/2012 ENDOSCOPIC HARVEST VEIN(S) FOR CABG performed by INNA TOVAR at [facility] MAIN OR PRO EXCISION, INFEC GRAFT, EXTREMITY Left 09/26/2024 EXCISION OF INFECTED GRAFT FROM LOWER EXTREMITY (WRVU 9.53) performed by Hayley Torres MD at [facility] OR PRO EXCISION, INFEC GRAFT, EXTREMITY Left 09/28/2024 EXCISION OF INFECTED GRAFT FROM LOWER EXTREMITY (WRVU 9.53) performed by Hayley Torres MD at [facility] OR PRO EXCISION, INFEC GRAFT, EXTREMITY 09/27/2024 EXCISION OF INFECTED GRAFT FROM LOWER EXTREMITY (WRVU 9.53) performed by Hayley Torres MD at [facility] MAIN OR PRO EXPLORATION NOT FOLLOWED BY SURG LOWER EXTREMITY ARTERY Left 09/29/2024 @EXPLORATION W\O SURGICAL REPAIR, FEMORAL ARTERY - JENNIFER (WRVU 7.5) performed by Taylor Ruiz MD at [facility] MAIN OR PRO FORM SKIN PEDICLE FLAP SCALP, ARM, LEG 09/28/2024 FLAP, PEDICLE,W OR W/O TRANSFER, LEGS (WRVU 10.12) performed by Hayley Torres MD at [facility] MAIN OR PRO I&D DEEP ABSCESS BURSA/HEMATOMA THIGH/KNEE REGION Left 09/26/2024 INCISION & DRAINAGE ABSCESS OR HEMATOMA, THIGH, KNEE SUPERFICIAL (WRVU 6.78) performed by Hayley Torres MD at [facility] MAIN OR PRO I&D DEEP ABSCESS BURSA/HEMATOMA THIGH/KNEE REGION 09/27/2024 INCISION & DRAINAGE ABSCESS OR HEMATOMA, THIGH, KNEE SUPERFICIAL (WRVU 6.78) performed by Hayley Torres MD at [facility] MAIN OR PRO REVISION FEMORAL ANAST BPG GROIN OPEN W/NONAUTOG PATCH GRAFT Left 09/28/2024 REV. FEM. ANASTOMOSIS OF SYN. BYPASS GRAFT USING NONAUTOGENOUS PATCH ANGIOPLASTY-JENNIFER (WRVU 23.15) performed by Hayley Torres MD at [facility] MAIN OR PRO UNLISTED PROCEDURE VASCULAR SURGERY Left 09/28/2024 HARVEST SAPHENOUS VEIN (WRVU 13.24) performed by Hayley Torres MD at [facility] MAIN OR VS ARTERIOGRAM LOWER EXTREMITY VASCULAR SURGERY 07/20/2024 VS Arteriogram Lower Extremity Vascular Surgery 07/20/2024 Taylor Ruiz MD [facility] INTERVENTIONL RAD Social History Tobacco Use [...] with patient. Plan discussed with attending and LOADING MACHINE OPERATOR. Anesthesia Screening documented in this encounter Plan of Treatment Upcoming Encounters Date Type Department Care Team (Late st Contact Info) Description 11/09/2024 1:30 PM EST Office [place] [address] Isabela Hayward, DIVIDING MACHINE OPERATOR [facility] [place] [address] 11/10/2024 10:00 AM EST Office [place] [phone] Dai Whitman, RESHMA 11/21/2024 2:15 PM EST Office [place] [phone] Dayanara Grover MD [facility] [place] [address] documented as of this encounter Visit Diagnoses [...] mg documented in this encounter Care Teams Certified Peer Specialist Relationship Specialty Start Date End Date Charles Romero PA [facility] [place] [address] PCP - General Internal Medicine 09/18/24 documented as of this encounter
--- OUTSIDE RECORDS SUMMARY | 2024-10-31 15:32 | XMS_ITS | Encounter Summary ---
Author Organization [facility] [place] [address] Care Team Providers Care Cotton Buyer Name Role Phone Charles Romero Primary Care Provider + Reason for Visit * Auth/Cert (Routine) Specialty Diagnoses / Procedures Referred By William moses Referred To Contact Diagnoses Vascular graft infection, initial encounter Sepsis [A41.9] T82.7XXA Procedures EMERGENCY IPI Angel Gonsalez MD [facility] [place] [address] [facility] Referral ID Status Reason Start Date Expiration Date Visits Re quested Visits Authorized [id number] 1 1 Encounter Details Date Type Department Care Team (Late st Contact Info) Description 10/04/2024 3:38 PM EST - 10/04/2024 5:32 PM EST Surgery [place] [address] Marko Dickson MD [facility] [place] [place] [address] DEBRIDEMENT SKIN AND SUBCU, LOWER EXTREMITY (WRVU 1.01) Social History Tobacco Use Types Packs/Day Years Used Date Smoking Tobacco: Every Day Cigarettes 1 25 Started: 12/28/1986; Last attempted to quit: 12/28/2011 Smokeless Tobacco: Never Alcohol Use Standard Drinks/Week Comments No 0 (1 standard drink = 0.6 oz pur e alcohol) [facility] Utilities Answer Date Recorded In the [...] in a fdc (including now)? No 09/27/2024 DH IPV Inpatient [...] Operations/Major Procedures: 09/26/24: Explant of infected LEFT FRIT MAKER to below-knee popliteal artery PTFE bypass graft [...] @EXPLORATION W\O SURGICAL REPAIR, FEMORAL ARTERY - JENINFER (WRVU 7.5) (Left) DEBRIDEMENT SKIN, SUBCU, MUSCLE, [...] 2nd toe amputation who was transferred from [facility] given concern for infected left fem-BK [...] pericardial patch and PTFE willard over the FRIT MAKER was unincorporated. - Resection of prior femoral [...] juice or regular (not diet) soda 6 Proficiencys small box of raisins 4 glucose tablets [...] 2 tablespoons of dried fruit. Milk and zm-fhupg-rwgjo yogurt have 15 grams of carbs in a serving. A serving is 1 cup of milk or 3/4 cup (6 oz) of oo-xusix-xnuth yogurt. Starchy vegetables have 15 grams of carbs in a serving. A serving is ?? cup of mashed potatoes or sweet potato; 1 cup winter squash; ?? of a small baked potato; ?? cup of cooked beans; or ?? cup cooked corn or green peas. Learn how much carbs to eat each day and at each meal. A dietitian or certified neurodiagnostic technologist can teach you how to keep track [...] was scheduled for a f/u nutrition evaluation. Duplicator Punch Operator met pt at bedside. Pt sharedthat his [...] Based on current findings- home (sister & iozcebu-ql-vgy's home) Consult Recommendations: No other consults recommended [...] Loss: None Karolyn Hudson MD Vascular Surgery, 9961 10/09/24 Important Studies and Lab Data: Labs: [...] 05/29/2024, no significant changes. Procedure Limited - 61284. Doppler - 79848. Color Doppler - 54215. Suboptimal quality. This study is limited because [...] on series 3, image 8 and 641, 002, 457, 432. No other rim-enhancing fluid collection is [...] wedged between the vastus medialis and adductor Harrison muscle. This tracks into the popliteal fossa [...] PM Isabela Hayward APRN Infectious Disease at [facility] Arrive at: Home [phone] To view instructions for your video visit, click here, or visit this website: [email or web address] If you have not previously downloaded the [facility] patient portal software, [employer], please do so by clicking one of the links below or searching in your device's lobito store. [employer] devices 11/09/2024 1:30 PM Isabela Hayward APRN Infectious Disease at [facility] Arrive at: Dry Starch Supervisor Area [phone] 11/21/2024 2:15 PM Dayanara Grover MD Endocrinology at [facility] Arrive at: Dry Starch Supervisor Area 3A [phone] Future Orders Complete By Expires CBC (with Diff) [BBW128 Custom] 10/17/2024 12/11/2024 Process Instructions: INCLUDES: WBC, RBC, Hgb, Hct, Platelets, RBC Indices and Differential Scheduling Instructions: Comments: Questions: OPAT: Order / Recommendation for Post Discharge IV Antibiotic Management [JCJ127 CPT(R)] As directed Process Instructions: If no progress note charted, please enter Clinical details in comments. Scheduling Instructions: Comments: - If this order was signed greater than 72 hours prior to [facility] discharge, please call to confirm the accuracy of this order. Please Fax all results to: OPAT Program Infectious Disease Section [facility], [place] [address] FAX: - After hours, please contact the Infectious Disease Physician application security consultant at . - Line care instructions - see flush/heparin orders. Facilities may follow organizational policies/practices regarding heparin. - long-term for medication administration/production support engineer and catheter care/maintenance authorized. - CVC/PICC Dressing Change weekly and PRN Please use CHG or Bio Patch RN: Please care for PICC line including dressing changes weekly and prn. Please draw labs every Wednesday and PRN and fax results to OPAT at [phone]. Please draw labs off PICC line. [facility]. Please RN visit for IV ABX teaching and ongoing assessment. Senior Living for Medication Administration/Hookup and catheter care/maintenance: - Teach Patient/Caregiver goals/self-monitoring/therapy administration to independence per the Nursing Care Plan. - long-term visit frequency; initial, weekly and 2 PRN [...] Amaya Hernandez MD Referral for Outpatient Antibiotics [NFW4510 CPT(R)] As directed Process Instructions: Scheduling Instructions: [...] Jr. for admission to Home Health. [address] [facility] [address] Phone Number: [phone] (home) Date of : 1975 Inpatient DOCUMENTATION FOR VNA SERVICES (INCLUDING THOSE PATIENTS WITH MEDICARE COVERAGE REQUIRING HOME VNA SERVICES AND/OR HOSPICE SERVICES) PATIENT'S LOCATION: Geovanna Dixon Jr. [address] [address] [phone] (home) Cell: Telephone Information: Safety Person's Name: Geovanna In discussion with the attending physician, it is certified that this patient is under their care and that they, or a Nurse Practitioner, Clinical Nurse specialist or Physician Marine Driller who is working directly with them, had [...] for managing ADLs. HOME HEALTH CARE AGENCY: [facility] [address] [place] [address] START OF CARE: within 24-48 hours of discharge Patient has Medicare Please note that any additional orders needs or changes will need to be obtained from this patient's PCP: JUSTIN Roberson [address] [facility] [address] . All VNA agencies which cover the area of patient's residence have been reviewed, either verbally or in writing, andpatient/family have chosen the home health care agency noted. Questions: Disciplines Requested: Nursing Physical Therapy Occupational Therapy Recurring Lab Work Interval Expires CBC (with Diff) [VVA318 Custom] Once a week until 12/10/2024 12/10/2024 [...] For any problems or questions please call [phone] For issues on weeknights after 5pm and weekends please call [phone] and ask for the Vascular Fellow application security consultant. Discharge Medications: Your Medications New Medications [...] - See Instructions). FLUSH PROTOCOL WITH MEDICATIONS ([facility]): Before med infusion: flush with NS [...] - See Instructions). FLUSH PROTOCOL WITH MEDICATIONS ([facility]): Before med infusion: flush with NS [...] can get this completed at 3L at [facility] prior to your scheduled [...] For any problems or questions please call [phone] For issues on weeknights after 5pm and weekends please call [phone] and ask for the Vascular Fellow application security consultant. documented in this encounter Discharge Instructions [...] 2 tablespoons of dried fruit. Milk and fi-oprgg-gubxw yogurt have 15 grams of carbs in a serving. A serving is 1 cup of milk or 3/4 cup (6 oz) of uq-rzwxi-ujwgg yogurt. Starchy vegetables have 15 grams of carbs in a serving. A serving is ?? cup of mashed potatoes or sweet potato; 1 cup winter squash; ?? of a small baked potato; ?? cup of cooked beans; or ?? cup cooked corn or green peas. Learn how much carbs to eat each day and at each meal. A dietitian or certified neurodiagnostic technologist can teach you how to keep track [...] can get this completed at 3L at [facility] prior to your scheduled [...] For any problems or questions please call [phone] For issues on weeknights after 5pm and weekends please call [phone] and ask for the Vascular Fellow application security consultant. documented in this encounter Medications at [...] - See Instructions). FLUSH PROTOCOL WITH MEDICATIONS ([facility]): Before med infusion: flush with NS [...] - See Instructions). FLUSH PROTOCOL WITH MEDICATIONS ([facility]): Before med infusion: flush with NS [...] to contact. Reviewed roles and responsibilities of LANDSCAPE TECHNICIAN and infusion vendor. Contact information for ID and Vascular team/clinic, LANDSCAPE TECHNICIAN and infusion vendor given to pt. Discussed f/u appointments in ID 5C clinic, telephone and tele health. Pt verbalized understanding. All questions answered. IV & PO ABX Medications: Daptomycin 700mg IV daily Start/anticipated end date: 10/10/24-11/10/24 LANDSCAPE TECHNICIAN: [place] Infusion vendor: [facility] Care IV Access: 4 Fr. single lumen [...] 2 tablespoons of dried fruit. Milk and gu-tgilt-qwffl yogurt have 15 grams of carbs in a serving. A serving is 1 cup of milk or 3/4 cup (6 oz) of ke-kuldc-pskou yogurt. Starchy vegetables have 15 grams of carbs in a serving. A serving is ?? cup of mashed potatoes or sweet potato; 1 cup winter squash; ?? of a small baked potato; ?? cup of cooked beans; or ?? cup cooked corn or green peas. Learn how much carbs to eat each day and at each meal. A dietitian or certified neurodiagnostic technologist can teach you how to keep track [...] this time. OT to complete orders. Pager: [phone] Fabián Burrows OT 10/09/2024 Occupational Therapy Rehabilitation [...] Loss: None Karolyn Hudson MD Vascular Surgery, 6769 10/09/24 * Terry Jimenez, PT - 10/09/2024 12:02 PM EST Physical Therapy Visit #2 Patient profile: Geovanna Dixon Jr. is a 49 y.o. male with a history of HTN, HLD, NSTEMI, CAD s/p CABG (12/2011), DM,obesity, PAD s/p L iliofem endart and L fem-BK pop bypass and L 2nd toe amputation who was transferred from [facility], 09/26/24 given concern for infected left fem-BK popliteal PTFE bypass. He is now s/p an explant of an infected left femoral-below knee popliteal artery bypass graft (09/26), I/D groin abscess (09/27), L GSV harvest, vein patch angioplasty, L FRIT MAKER and BK pop w/ sartorius flap L fem, I/D, 09/29 L sartorius flap revision, vac change. 10/03/24 NPO at [facility] for OR wound exploration. Wound [...] He mentions he'll stay with sister and wkhujwk-vs-cvt upon DC. Pt resting in bed upon [...] up with R and down with L, zioq-oj-gijj. Balance: Sitting: NORMAL- EOB unsupported good postural [...] Based on current findings- home (sister & csbrlzs-lp-rzm's home) Consult Recommendations: No other consults recommended [...] 15 (TE-F) minutes TERRY JIMENEZ, PT Pager: [phone] Physical Therapy Inpatient Rehabilitation Department * María Carranza, CERTIFIED CODER - 10/09/2024 11:14 AM EST Images from the original note were not included. Vascular Surgery Progress Note Geovanna Dixon Jr. is a 49 y.o. male with history of HTN, HLD, NSTEMI, CAD s/p CABG (12/2011), DM, obesity, PAD s/p L iliofem endart and L fem-BK pop bypass and L 2nd toe amputation who was transferred from [facility] given concern for infected left fem-BK [...] smoking 1 week ago. He presented to [facility] on 09/26 and went [...] Daily heparin (porcine) 5,000 Units Subcutaneous Q8H [facility] lidocaine 1 patch Transdermal Q24H Operations [...] Procedure Component Value - Date/Time Blood culture [[id number]] (Abnormal) (Susceptibility) Collected: 09/26/24 1422 Lab Status: Edited Result - FINAL Specimen: Blood, Venous Updated: 10/07/24 0740 Blood Culture Methicillin Resistant Staphylococcus aureus Comment: detected by PCR Isolate saved. If future testing is required, contact the Microbiology Carton Counter Feeder. Gram Stain Aerobic Bottle: Gram positive cocci in clusters Susceptibility Methicillin Resistant Staphylococcus aureus MINIMUM INHIBITORY CONCENTRATION VITEK 2 METHOD Clindamycin Resistant Daptomycin Susceptible Gentamicin Susceptible [1] Linezolid Susceptible Oxacillin Resistant Trimethoprim/Sulfa Susceptible Vancomycin Susceptible [1] Gentamicin is not appropriate for monotherapy for gram-positive infections. AFB culture [[id number]] Collected: 09/27/24 1654 Lab Status: Preliminary result Specimen: Tissue from Thigh, Left Updated: 10/05/24 1201 Acid Fast Bacilli Culture No acid fast bacilli isolated at 1 week. Acid Fast Stain No acid fast bacilli seen Blood culture [[id number]] Collected: 09/29/242123 Lab Status: Final result Specimen: Blood, Venous Updated: 10/04/24 2301 Blood Culture No growth at 120 hours Blood culture [[id number]] Collected: 09/29/242123 Lab Status: Final result Specimen: Blood, Venous Updated: 10/04/24 2301 Blood Culture No growth at 120 hours AFB culture [[id number]] Collected: 09/26/24 1702 Lab Status: Preliminary result Specimen: Abscess from Knee, Left Updated: 10/04/24 1201 Acid Fast Bacilli Culture No acid fast bacilli isolated at 1 week. Acid Fast Stain No acid fast bacilli seen Blood culture [[id number]] Collected: 09/28/24 1749 Lab Status: Final result [...] 2nd toe amputation who was transferred from [facility] given concern for infected left fem-BK popliteal PTFE bypass. He is now s/p an explantof an infected left femoral-below knee popliteal artery bypass graft (09/26), I/D groin abscess (), L GSV harvest, vein patch angioplasty, L FRIT MAKER and BK pop w/ sartorius flap L fem, I/D, 09/29 L sartorius flap revision, vac change. 10/09/24: Progressing well post surgically. Will pull medial thigh drain today, retain sartorius flap drain along with wound vac x 3 sponges ([facility] has approved for home vac) [...] PRN PICC dressing change completed as per [facility] protocol. Positive pressure displacement [...] 2nd toe amputation who was transferred from [facility] given concern for infected left fem-BK [...] smoking 1 week ago. He presented to [facility] on 09/26 and went [...] Procedure Component Value - Date/Time Blood culture [[id number]] (Abnormal) (Susceptibility) Collected: 09/26/24 1422 Lab Status: Edited Result - FINAL Specimen: Blood, Venous Updated: 10/07/24 0740 Blood Culture Methicillin Resistant Staphylococcus aureus Comment: detected by PCR Isolate saved. If future testing is required, contact the Microbiology Carton Counter Feeder. Gram Stain Aerobic Bottle: Gram positive cocci in clusters Susceptibility Methicillin Resistant Staphylococcus aureus MINIMUM INHIBITORY CONCENTRATION VITEK 2 METHOD Clindamycin Resistant Daptomycin Susceptible Gentamicin Susceptible [1] Linezolid Susceptible Oxacillin Resistant Trimethoprim/Sulfa Susceptible Vancomycin Susceptible [1] Gentamicin is not appropriate for monotherapy for gram-positive infections. AFB culture [[id number]] Collected: 09/27/24 165 Lab Status: Preliminary result Specimen: Tissue from Thigh, Left Updated: 10/05/24 1201 Acid Fast Bacilli Culture No acid fast bacilli isolated at 1 week. Acid Fast Stain No acid fast bacilli seen Blood culture [[id number]] Collected: 09/29/242123 Lab Status: Final result Specimen: Blood, Venous Updated: 10/04/24 2301 Blood Culture No growth at 120 hours Blood culture [[id number]] Collected: 09/29/242123 Lab Status: Final result Specimen: Blood, Venous Updated: 10/04/24 2301 Blood Culture No growth at 120 hours AFB culture [[id number]] Collected: 09/26/24 1702 Lab Status: Preliminary result Specimen: Abscess from Knee, Left Updated: 10/04/24 1201 Acid Fast Bacilli Culture No acid fast bacilli isolated at 1 week. Acid Fast Stain No acid fast bacilli seen Blood culture [[id number]] Collected: 09/28/24 1749 Lab Status: Final result Specimen: Blood, Venous Updated: 10/03/24 1901 Blood Culture No growth at 120 hours Blood culture [[id number]] (Abnormal) Collected: 09/27/24 2133 Lab Status: Final result Specimen: Blood, Venous Updated: 10/02/24 0804 Blood Culture Methicillin Resistant Staphylococcus aureus Comment: Susceptibilities previously reported. Gram Stain Aerobic Bottle: Gram positive cocci in clusters Tissue Culture, Aerobic & Anaerobic [[id number]] Collected: 09/27/241653 Lab Status: Final result Specimen: Tissue from Thigh, Left Updated: 10/01/24 1554 Narrative: The following orders were created for panel order Tissue Culture, Aerobic & Anaerobic. Procedure Abnormality Status --------- ------ Tissue Culture, Aerobic ...[[id number]] Anaerobic Culture[[id number]] Final result Please view results for these tests on the individual orders. Anaerobic Culture [[id number]] Collected: 09/27/241653 Lab Status: Final result Specimen: Tissue from Thigh, Left Updated: 10/01/24 1554 Anaerobic Culture No anaerobic organisms isolated Tissue Culture, Aerobic Only [[id number]] (Abnormal) (Susceptibility) Collected: 09/27/241653 Lab Status: Final [...] 2nd toe amputation who was transferred from [facility] given concern for infected left fem-BK popliteal PTFE bypass. He is now s/p an explantof an infected left femoral-below knee popliteal artery bypass graft (09/26), I/D groin abscess (), L GSV harvest, vein patch angioplasty, L FRIT MAKER and BK pop w/ sartorius flap L [...] 81mg daily Vibha Benson APRN 10/08/2024 Pager: [phone] * Vibha Benson APRN - 10/07/2024 8:52 AM EST Images from the original note were not included. Vascular Surgery Progress Note Geovanna Dixon Jr. is a 49 y.o. male with history of HTN, HLD, NSTEMI, CAD s/p CABG (12/2011), DM, obesity, PAD s/p L iliofem endart and L fem-BK pop bypass and L 2nd toe amputation who was transferred from [facility] given concern for infected left fem-BK [...] smoking 1 week ago. He presented to [facility] on 09/26 and went [...] Procedure Component Value - Date/Time Blood culture [[id number]] (Abnormal) (Susceptibility) Collected: 09/26/24 1422 Lab Status: Edited Result - FINAL Specimen: Blood, Venous Updated: 10/07/24 0740 Blood Culture Methicillin Resistant Staphylococcus aureus Comment: detected by PCR Isolate saved. If future testing is required, contact the Microbiology Carton Counter Feeder. Gram Stain Aerobic Bottle: Gram positive cocci in clusters Susceptibility Methicillin Resistant Staphylococcus aureus MINIMUM INHIBITORY CONCENTRATION VITEK 2 METHOD Clindamycin Resistant Daptomycin Susceptible Gentamicin Susceptible [1] Linezolid Susceptible Oxacillin Resistant Trimethoprim/Sulfa Susceptible Vancomycin Susceptible [1] Gentamicin is not appropriate for monotherapy for gram-positive infections. AFB culture [[id number]] Collected: 09/27/24 165 Lab Status: Preliminary result Specimen: Tissue from Thigh, Left Updated: 10/05/24 1201 Acid Fast Bacilli Culture No acid fast bacilli isolated at 1 week. Acid Fast Stain No acid fast bacilli seen Blood culture [[id number]] Collected: 09/29/242123 Lab Status: Final result Specimen: Blood, Venous Updated: 10/04/24 2301 Blood Culture No growth at 120 hours Blood culture [[id number]] Collected: 09/29/242123 Lab Status: Final result Specimen: Blood, Venous Updated: 10/04/24 2301 Blood Culture No growth at 120 hours AFB culture [[id number]] Collected: 09/26/24 1702 Lab Status: Preliminary result Specimen: Abscess from Knee, Left Updated: 10/04/24 1201 Acid Fast Bacilli Culture No acid fast bacilli isolated at 1 week. Acid Fast Stain No acid fast bacilli seen Blood culture [[id number]] Collected: 09/28/24 1749 Lab Status: Final result Specimen: Blood, Venous Updated: 10/03/24 1901 Blood Culture No growth at 120 hours Blood culture [[id number]] (Abnormal) Collected: 09/27/24 2133 Lab Status: Final result Specimen: Blood, Venous Updated: 10/02/24 0804 Blood Culture Methicillin Resistant Staphylococcus aureus Comment: Susceptibilities previously reported. Gram Stain Aerobic Bottle: Gram positive cocci in clusters Tissue Culture, Aerobic & Anaerobic [[id number]] Collected: 09/27/24 165 Lab Status: Final result Specimen: Tissue from Thigh, Left Updated: 10/01/24 1554 Narrative: The following orders were created for panel order Tissue Culture, Aerobic & Anaerobic. Procedure Abnormality Status --------- ------ Tissue Culture, Aerobic ...[[id number]] Anaerobic Culture[[id number]] Final result Please view results for these tests on the individual orders. Anaerobic Culture [[id number]] Collected: 09/27/24 165 Lab Status: Final result Specimen: Tissue from Thigh, Left Updated: 10/01/24 1554 Anaerobic Culture No anaerobic organisms isolated Tissue Culture, Aerobic Only [[id number]] (Abnormal) (Susceptibility) Collected: 09/27/24 165 Lab Status: [...] is considered susceptible to doxycycline. Blood culture [[id number]] (Abnormal) Collected: 09/26/24 1845 Lab Status: Final result Specimen: Blood, Venous Updated: 10/01/24 0658 Blood Culture Methicillin Resistant Staphylococcus aureus Comment: isolated. Susceptibilities previously reported. Gram Stain Aerobic Bottle: Gram positive cocci in clusters Abscess/Wound Aspirate Culture, Aerobic & Anaerobic [[id number]] (Abnormal) Collected: 09/26/241649 Lab Status: Final result Specimen: Abscess from Groin, Left Updated: 09/30/24 155 Narrative: The following orders were created for panel order Abscess/Wound Aspirate Culture, Aerobic & Anaerobic. Procedure Abnormality Status --------- ------ Abscess/Wound Aspirate C...[[id number]] Abnormal Final result Anaerobic Culture[[id number]] Final result Please view results for these tests on the individual orders. Anaerobic Culture [[id number]] Collected: 09/26/24 165 Lab Status: Final result Specimen: Abscess from Groin, Left Updated: 09/30/24 155 Anaerobic Culture No anaerobic organisms isolated Abscess/Wound Aspirate Culture, Aerobic & Anaerobic [[id number]] (Abnormal) Collected: 09/26/24 1702 Lab Status: Final result Specimen: Abscess from Knee, Left Updated: 09/30/24 1551 Narrative: The following orders were created for panel order Abscess/Wound Aspirate Culture, Aerobic & Anaerobic. Procedure Abnormality Status --------- ------ Abscess/Wound Aspirate C...[[id number]] Abnormal Final result Anaerobic Culture[[id number]] Final result Please view results for these tests on the individual orders. Anaerobic Culture [[id number]] Collected: 09/26/24 1702 Lab Status: Final result Specimen: Abscess from Knee, Left Updated: 09/30/24 1551 Anaerobic Culture No anaerobic organisms isolated Sonicated Tissue/Implant Culture [[id number]] (Abnormal) Collected: 09/26/24 1716 Lab Status: Final result Specimen: Vascular Graft from Leg, Left Updated: 09/30/24 1349 Sonicated Tissue/Implant Culture Methicillin Resistant Staphylococcus aureus Comment: isolated from broth culture. Susceptibilities previously reported. Abscess/Wound Aspirate Culture, Aerobic Only [[id number]] (Abnormal) (Susceptibility) Collected: 09/26/24 1702 Lab Status: [...] to doxycycline. Abscess/Wound Aspirate Culture, Aerobic Only [[id number]] (Abnormal) (Susceptibility) Collected: 09/26/24 1650 Lab Status: [...] 2nd toe amputation who was transferred from [facility] given concern for infected left fem-BK popliteal PTFE bypass. He is now s/p an explantof an infected left femoral-below knee popliteal artery bypass graft (09/26), I/D groin abscess (), L GSV harvest, vein patch angioplasty, L FRIT MAKER and BK pop w/ sartorius flap L [...] 81mg daily Vibha Benson APRN 10/07/2024 Pager: [phone] * Karina-Jessica Mcrae, PT - 10/06/2024 3:21 PM EST 10/06/24 3995 Evaluation & Treatment Document Type contact Comment, [...] 2nd toe amputation who was transferred from [facility] given concern for infected left fem-BK [...] smoking 1 week ago. He presented to [facility] on 09/26 and went [...] Procedure Component Value - Date/Time AFB culture [[id number]] Collected: 09/27/241653 Lab Status: Preliminary result Specimen: Tissue from Thigh, Left Updated: 10/05/24 1201 Acid Fast Bacilli Culture No acid fast bacilli isolated at 1 week. Acid Fast Stain No acid fast bacilli seen Blood culture [[id number]] Collected: 09/29/242123 Lab Status: Final result Specimen: Blood, Venous Updated: 10/04/24 2301 Blood Culture No growth at 120 hours Blood culture [[id number]] Collected: 09/29/242123 Lab Status: Final result Specimen: Blood, Venous Updated: 10/04/24 2301 Blood Culture No growth at 120 hours AFB culture [[id number]] Collected: 09/26/24 170 Lab Status: Preliminary result Specimen: Abscess from Knee, Left Updated: 10/04/24 1201 Acid Fast Bacilli Culture No acid fast bacilli isolated at 1 week. Acid Fast Stain No acid fast bacilli seen Blood culture [[id number]] Collected: 09/28/24 1749 Lab Status: Final result Specimen: Blood, Venous Updated: 10/03/24 1901 Blood Culture No growth at 120 hours Blood culture [[id number]] (Abnormal) Collected: 09/27/242132 Lab Status: Final result Specimen: Blood, Venous Updated: 10/02/24 0804 Blood Culture Methicillin Resistant Staphylococcus aureus Comment: Susceptibilities previously reported. Gram Stain Aerobic Bottle: Gram positive cocci in clusters Tissue Culture, Aerobic & Anaerobic [[id number]] Collected: 09/27/241653 Lab Status: Final result Specimen: Tissue from Thigh, Left Updated: 10/01/24 1554 Narrative: The following orders were created for panel order Tissue Culture, Aerobic & Anaerobic. Procedure Abnormality Status --------- ------ Tissue Culture, Aerobic ...[[id number]] Anaerobic Culture[[id number]] Final result Please view results for these tests on the individual orders. Anaerobic Culture [[id number]] Collected: 09/27/241653 Lab Status: Final result Specimen: Tissue from Thigh, Left Updated: 10/01/24 1554 Anaerobic Culture No anaerobic organisms isolated Tissue Culture, Aerobic Only [[id number]] (Abnormal) (Susceptibility) Collected: 09/27/24 1654 Lab Status: [...] is considered susceptible to doxycycline. Blood culture [[id number]] (Abnormal) (Susceptibility) Collected: 09/26/24 1422 Lab Status: Edited Specimen: Blood, Venous Updated: 10/01/24 0658 Blood Culture Methicillin Resistant Staphylococcus aureus Comment: detected by PCR Isolate saved. If future testing is required, contact the Microbiology Carton Counter Feeder. Gram Stain Aerobic Bottle: Gram positive cocci in clusters Susceptibility Methicillin Resistant Staphylococcus aureus VITEK 2 METHOD Clindamycin Resistant Gentamicin Susceptible [1] Linezolid Susceptible Oxacillin Resistant Trimethoprim/Sulfa Susceptible Vancomycin Susceptible [1] Gentamicin is not appropriate for monotherapy for gram-positive infections. Blood culture [[id number]] (Abnormal) Collected: 09/26/24 1845 Lab Status: Final result Specimen: Blood, Venous Updated: 10/01/24 0658 Blood Culture Methicillin Resistant Staphylococcus aureus Comment: isolated. Susceptibilities previously reported. Gram Stain Aerobic Bottle: Gram positive cocci in clusters Abscess/Wound Aspirate Culture, Aerobic & Anaerobic [[id number]] (Abnormal) Collected: 09/26/24 165 Lab Status: Final result Specimen: Abscess from Groin, Left Updated: 09/30/24 1551 Narrative: The following orders were created for panel order Abscess/Wound Aspirate Culture, Aerobic & Anaerobic. Procedure Abnormality Status --------- ------ Abscess/Wound Aspirate C...[[id number]] Abnormal Final result Anaerobic Culture[[id number]] Final result Please view results for these tests on the individual orders. Anaerobic Culture [[id number]] Collected: 09/26/24 165 Lab Status: Final result Specimen: Abscess from Groin, Left Updated: 09/30/24 1551 Anaerobic Culture No anaerobic organisms isolated Abscess/Wound Aspirate Culture, Aerobic & Anaerobic [[id number]] (Abnormal) Collected: 09/26/24 1702 Lab Status: Final result Specimen: Abscess from Knee, Left Updated: 09/30/24 1551 Narrative: The following orders were created for panel order Abscess/Wound Aspirate Culture, Aerobic & Anaerobic. Procedure Abnormality Status --------- ------ Abscess/Wound Aspirate C...[[id number]] Abnormal Final result Anaerobic Culture[[id number]] Final result Please view results for these tests on the individual orders. Anaerobic Culture [[id number]] Collected: 09/26/24 1702 Lab Status: Final result Specimen: Abscess from Knee, Left Updated: 09/30/24 1551 Anaerobic Culture No anaerobic organisms isolated Sonicated Tissue/Implant Culture [[id number]] (Abnormal) Collected: 09/26/24 1716 Lab Status: Final result Specimen: Vascular Graft from Leg, Left Updated: 09/30/24 1349 Sonicated Tissue/Implant Culture Methicillin Resistant Staphylococcus aureus Comment: isolated from broth culture. Susceptibilities previously reported. Abscess/Wound Aspirate Culture, Aerobic Only [[id number]] (Abnormal) (Susceptibility) Collected: 09/26/24 1702 Lab Status: [...] to doxycycline. Abscess/Wound Aspirate Culture, Aerobic Only [[id number]] (Abnormal) (Susceptibility) Collected: 09/26/24 1650 Lab Status: [...] 2nd toe amputation who was transferred from [facility] given concern for infected left fem-BK popliteal PTFE bypass. He is now s/p an explantof an infected left femoral-below knee popliteal artery bypass graft (09/26), I/D groin abscess (), L GSV harvest, vein patch angioplasty, L FRIT MAKER and BK pop w/ sartorius flap L [...] 81mg daily Benjamin Iniguez MD 10/06/2024 Pager: [phone] * Benjamin Iniguez MD - 10/05/2024 7:42 AM EST Images from the original note were not included. Vascular Surgery Progress Note Geovanna Dixon Jr. is a 49 y.o. male with history of HTN, HLD, NSTEMI, CAD s/p CABG (12/2011), DM, obesity, PAD s/p L iliofem endart and L fem-BK pop bypass and L 2nd toe amputation who was transferred from [facility] given concern for infected left fem-BK [...] smoking 1 week ago. He presented to [facility] on 09/26 and went [...] Daily heparin (porcine) 5,000 Units Subcutaneous Q8H [facility] lidocaine 1 patch Transdermal Q24H Operations [...] Procedure Component Value - Date/Time Blood culture [[id number]] Collected: 09/29/242123 Lab Status: Final result Specimen: Blood, Venous Updated: 10/04/24 230 Blood Culture No growth at 120 hours Blood culture [[id number]] Collected: 09/29/242123 Lab Status: Final result Specimen: Blood, Venous Updated: 10/04/24 230 Blood Culture No growth at 120 hours AFB culture [[id number]] Collected: 09/26/24 1702 Lab Status: Preliminary result Specimen: Abscess from Knee, Left Updated: 10/04/24 1201 Acid Fast Bacilli Culture No acid fast bacilli isolated at 1 week. Acid Fast Stain No acid fast bacilli seen Blood culture [[id number]] Collected: 09/28/24 1749 Lab Status: Final result Specimen: Blood, Venous Updated: 10/03/24 1901 Blood Culture No growth at 120 hours Blood culture [[id number]] (Abnormal) Collected: 09/27/242132 Lab Status: Final result Specimen: Blood, Venous Updated: 10/02/24 0804 Blood Culture Methicillin Resistant Staphylococcus aureus Comment: Susceptibilities previously reported. Gram Stain Aerobic Bottle: Gram positive cocci in clusters Tissue Culture, Aerobic & Anaerobic [[id number]] Collected: 09/27/241653 Lab Status: Final result Specimen: Tissue from Thigh, Left Updated: 10/01/24 1554 Narrative: The following orders were created for panel order Tissue Culture, Aerobic & Anaerobic. Procedure Abnormality Status --------- ------ Tissue Culture, Aerobic ...[[id number]] Anaerobic Culture[[id number]] Final result Please view results for these tests on the individual orders. Anaerobic Culture [[id number]] Collected: 09/27/241653 Lab Status: Final result Specimen: Tissue from Thigh, Left Updated: 10/01/24 1554 Anaerobic Culture No anaerobic organisms isolated Tissue Culture, Aerobic Only [[id number]] (Abnormal) (Susceptibility) Collected: 09/27/241653 Lab Status: Final [...] is considered susceptible to doxycycline. Blood culture [[id number]] (Abnormal) (Susceptibility) Collected: 09/26/24 1422 Lab Status: Final result Specimen: Blood, Venous Updated: 10/01/24 0658 Blood Culture Methicillin Resistant Staphylococcus aureus Comment: detected by PCR Isolate saved. If future testing is required, contact the Microbiology Carton Counter Feeder. Gram Stain Aerobic Bottle: Gram positive cocci in clusters Susceptibility Methicillin Resistant Staphylococcus aureus VITEK 2 METHOD Clindamycin Resistant Gentamicin Susceptible [1] Linezolid Susceptible Oxacillin Resistant Trimethoprim/Sulfa Susceptible Vancomycin Susceptible [1] Gentamicin is not appropriate for monotherapy for gram-positive infections. Blood culture [[id number]] (Abnormal) Collected: 09/26/24 1845 Lab Status: Final result Specimen: Blood, Venous Updated: 10/01/24 0658 Blood Culture Methicillin Resistant Staphylococcus aureus Comment: isolated. Susceptibilities previously reported. Gram Stain Aerobic Bottle: Gram positive cocci in clusters Abscess/Wound Aspirate Culture, Aerobic & Anaerobic [[id number]] (Abnormal) Collected: 09/26/24 165 Lab Status: Final result Specimen: Abscess from Groin, Left Updated: 09/30/24 1551 Narrative: The following orders were created for panel order Abscess/Wound Aspirate Culture, Aerobic & Anaerobic. Procedure Abnormality Status --------- ------ Abscess/Wound Aspirate C...[[id number]] Abnormal Final result Anaerobic Culture[[id number]] Final result Please view results for these tests on the individual orders. Anaerobic Culture [[id number]] Collected: 09/26/241649 Lab Status: Final result Specimen: Abscess from Groin, Left Updated: 09/30/24 1551 Anaerobic Culture No anaerobic organisms isolated Abscess/Wound Aspirate Culture, Aerobic & Anaerobic [[id number]] (Abnormal) Collected: 09/26/24 170 Lab Status: Final result Specimen: Abscess from Knee, Left Updated: 09/30/24 1551 Narrative: The following orders were created for panel order Abscess/Wound Aspirate Culture, Aerobic & Anaerobic. Procedure Abnormality Status --------- ------ Abscess/Wound Aspirate C...[[id number]] Abnormal Final result Anaerobic Culture[[id number]] Final result Please view results for these tests on the individual orders. Anaerobic Culture [[id number]] Collected: 09/26/24 170 Lab Status: Final result Specimen: Abscess from Knee, Left Updated: 09/30/24 1551 Anaerobic Culture No anaerobic organisms isolated Sonicated Tissue/Implant Culture [[id number]] (Abnormal) Collected: 09/26/24 1716 Lab Status: Final result Specimen: Vascular Graft from Leg, Left Updated: 09/30/24 1349 Sonicated Tissue/Implant Culture Methicillin Resistant Staphylococcus aureus Comment: isolated from broth culture. Susceptibilities previously reported. Abscess/Wound Aspirate Culture, Aerobic Only [[id number]] (Abnormal) (Susceptibility) Collected: 09/26/24 1702 Lab Status: [...] to doxycycline. Abscess/Wound Aspirate Culture, Aerobic Only [[id number]] (Abnormal) (Susceptibility) Collected: 09/26/241649 Lab Status: Final [...] is considered susceptible to doxycycline. AFB culture [[id number]] Collected: 09/27/241653 Lab Status: Preliminary result Specimen: Tissue from Thigh, Left Updated: 09/29/24 1201 Acid Fast Bacilli Culture No acid fast bacilli isolated to date. Acid Fast Stain No acid fast bacilli seen Fungus culture [[id number]] Collected: 09/27/241653 Lab Status: Preliminary result Specimen: [...] 2nd toe amputation who was transferred from [facility] given concern for infected left fem-BK popliteal PTFE bypass. He is now s/p an explantof an infected left femoral-below knee popliteal artery bypass graft (09/26), I/D groin abscess (), L GSV harvest, vein patch angioplasty, L FRIT MAKER and BK pop w/ sartorius flap L [...] 81mg daily Benjamin Iniguez MD 10/05/2024 Pager: [phone] Associated attestation - Hayley Torres MD - 10/06/2024 9:25 AM EST I have seen and examined the patient, providing whtie components as outlined below. I have reviewed [...] aspirate- MRSA Antimicrobials: Vancomycin- Imaging/diagnostics: CT lower wnyszupdt27/20 IMPRESSION: 1. Interval explant of LEFT femoral [...] male who underwent a left lower extremity ctagtwz-bk-etopm-kneepopliteal artery bypass on August 01, 2024, and [...] concerns. Please page ID Green team (pager [phone]) with questions or concerns. Lynne Leavitt MD Fellow, Infectious Disease Pager: [phone] Epic Chat 10/02/2024 This note was created using [employer]) voice recognition software. Associated attestation - Amaya [...] Procedure Component Value - Date/Time Blood culture [[id number]] Collected: 09/29/242123 Lab Status: Final result Specimen: Blood, Venous Updated: 10/04/24 2301 Blood Culture No growth at 120 hours Blood culture [[id number]] Collected: 09/29/242123 Lab Status: Final result Specimen: Blood, Venous Updated: 10/04/24 2301 Blood Culture No growth at 120 hours AFB culture [[id number]] Collected: 09/26/24 170 Lab Status: Preliminary result Specimen: Abscess from Knee, Left Updated: 10/04/24 120 Acid Fast Bacilli Culture No acid fast bacilli isolated at 1 week. Acid Fast Stain No acid fast bacilli seen Blood culture [[id number]] Collected: 09/28/24 1749 Lab Status: Final result Specimen: Blood, Venous Updated: 10/03/24 1901 Blood Culture No growth at 120 hours Blood culture [[id number]] (Abnormal) Collected: 09/27/242132 Lab Status: Final result Specimen: Blood, Venous Updated: 10/02/24 0804 Blood Culture Methicillin Resistant Staphylococcus aureus Comment: Susceptibilities previously reported. Gram Stain Aerobic Bottle: Gram positive cocci in clusters Tissue Culture, Aerobic & Anaerobic [[id number]] Collected: 09/27/241653 Lab Status: Final result Specimen: Tissue from Thigh, Left Updated: 10/01/24 155 Narrative: The following orders were created for panel order Tissue Culture, Aerobic & Anaerobic. Procedure Abnormality Status --------- ------ Tissue Culture, Aerobic ...[[id number]] Anaerobic Culture[[id number]] Final result Please view results for these tests on the individual orders. Anaerobic Culture [[id number]] Collected: 09/27/241653 Lab Status: Final result Specimen: Tissue from Thigh, Left Updated: 10/01/24 155 Anaerobic Culture No anaerobic organisms isolated Tissue Culture, Aerobic Only [[id number]] (Abnormal) (Susceptibility) Collected: 11/20/24 1654 Lab Status: [...] is considered susceptible to doxycycline. Blood culture [[id number]] (Abnormal) (Susceptibility) Collected: 09/26/24 1422 Lab Status: Final result Specimen: Blood, Venous Updated: 10/01/24 0658 Blood Culture Methicillin Resistant Staphylococcus aureus Comment: detected by PCR Isolate saved. If future testing is required, contact the Microbiology Carton Counter Feeder. Gram Stain Aerobic Bottle: Gram positive cocci in clusters Susceptibility Methicillin Resistant Staphylococcus aureus VITEK 2 METHOD Clindamycin >=8.0 ug/ml Resistant Gentamicin <=0.5 ug/ml Susceptible [1] Linezolid 2.0 ug/ml Susceptible Oxacillin >=4.0 ug/ml Resistant Trimethoprim/Sulfa <=10.0 ug/ml Susceptible Vancomycin 1.0 ug/ml Susceptible [1] Gentamicin is not appropriate for monotherapy for gram-positive infections. Blood culture [[id number]] (Abnormal) Collected: 09/26/24 1845 Lab Status: Final result Specimen: Blood, Venous Updated: 10/01/24 0658 Blood Culture Methicillin Resistant Staphylococcus aureus Comment: isolated. Susceptibilities previously reported. Gram Stain Aerobic Bottle: Gram positive cocci in clusters Abscess/Wound Aspirate Culture, Aerobic & Anaerobic [[id number]] (Abnormal) Collected: 09/26/24 1650 Lab Status: Final result Specimen: Abscess from Groin, Left Updated: 09/30/24 1551 Narrative: The following orders were created for panel order Abscess/Wound Aspirate Culture, Aerobic & Anaerobic. Procedure Abnormality Status --------- ------ Abscess/Wound Aspirate C...[[id number]] Abnormal Final result Anaerobic Culture[[id number]] Final result Please view results for these tests on the individual orders. Anaerobic Culture [[id number]] Collected: 09/26/24 1650 Lab Status: Final result Specimen: Abscess from Groin, Left Updated: 09/30/24 1551 Anaerobic Culture No anaerobic organisms isolated Abscess/Wound Aspirate Culture, Aerobic & Anaerobic [[id number]] (Abnormal) Collected: 09/26/24 1702 Lab Status: Final result Specimen: Abscess from Knee, Left Updated: 09/30/24 1551 Narrative: The following orders were created for panel order Abscess/Wound Aspirate Culture, Aerobic & Anaerobic. Procedure Abnormality Status --------- ------ Abscess/Wound Aspirate C...[[id number]] Abnormal Final result Anaerobic Culture[[id number]] Final result Please view results for these tests on the individual orders. Anaerobic Culture [[id number]] Collected: 09/26/24 170 Lab Status: Final result Specimen: Abscess from Knee, Left Updated: 09/30/24 1551 Anaerobic Culture No anaerobic organisms isolated Sonicated Tissue/Implant Culture [[id number]] (Abnormal) Collected: 09/26/24 1716 Lab Status: Final result Specimen: Vascular Graft from Leg, Left Updated: 09/30/24 1349 Sonicated Tissue/Implant Culture Methicillin Resistant Staphylococcus aureus Comment: isolated from broth culture. Susceptibilities previously reported. Abscess/Wound Aspirate Culture, Aerobic Only [[id number]] (Abnormal) (Susceptibility) Collected: 09/26/24 170 Lab Status: [...] to doxycycline. Abscess/Wound Aspirate Culture, Aerobic Only [[id number]] (Abnormal) (Susceptibility) Collected: 09/26/241649 Lab Status: Final [...] is considered susceptible to doxycycline. AFB culture [[id number]] Collected: 09/27/241653 Lab Status: Preliminary result Specimen: Tissue from Thigh, Left Updated: 09/29/24 1201 Acid Fast Bacilli Culture No acid fast bacilli isolated to date. Acid Fast Stain No acid fast bacilli seen Fungus culture [[id number]] Collected: 09/27/241653 Lab Status: Preliminary result Specimen: [...] Diet NPO Monitoring: Q4 Fawn Cunningham APRN [facility] [facility] Endocrinology Diabetes Management Pager [phone] Weekends please page [phone] 35 minutes were spent over the course [...] 2nd toe amputation who was transferred from [facility] given concern for infected left fem-BK [...] smoking 1 week ago. He presented to [facility] [facility] on 09/26 and went [...] Daily heparin (porcine) 5,000 Units Subcutaneous Q8H [facility] lidocaine 1 patch Transdermal Q24H Operations [...] Procedure Component Value - Date/Time Blood culture [[id number]] Collected: 09/29/242123 Lab Status: Preliminary result Specimen: Blood, Venous Updated: 10/03/24 230 Blood Culture No growth at 96 hours Blood culture [[id number]] Collected: 09/29/242123 Lab Status: Preliminary result Specimen: Blood, Venous Updated: 10/03/24 2301 Blood Culture No growth at 96 hours Blood culture [[id number]] Collected: 09/28/24 1749 Lab Status: Final result Specimen: Blood, Venous Updated: 10/03/24 1901 Blood Culture No growth at 120 hours Blood culture [[id number]] (Abnormal) Collected: 09/27/242132 Lab Status: Final result Specimen: Blood, Venous Updated: 10/02/24 0804 Blood Culture Methicillin Resistant Staphylococcus aureus Comment: Susceptibilities previously reported. Gram Stain Aerobic Bottle: Gram positive cocci in clusters Tissue Culture, Aerobic & Anaerobic [[id number]] Collected: 09/27/24 1654 Lab Status: Final result Specimen: Tissue from Thigh, Left Updated: 10/01/24 1554 Narrative: The following orders were created for panel order Tissue Culture, Aerobic & Anaerobic. Procedure Abnormality Status --------- ------ Tissue Culture, Aerobic ...[[id number]] Anaerobic Culture[[id number]] Final result Please view results for these tests on the individual orders. Anaerobic Culture [[id number]] Collected: 09/27/24 1654 Lab Status: Final result Specimen: Tissue from Thigh, Left Updated: 10/01/24 1554 Anaerobic Culture No anaerobic organisms isolated Tissue Culture, Aerobic Only [[id number]] (Abnormal) (Susceptibility) Collected: 09/27/24 165 Lab Status: [...] is considered susceptible to doxycycline. Blood culture [[id number]] (Abnormal) (Susceptibility) Collected: 09/26/24 1422 Lab Status: Final result Specimen: Blood, Venous Updated: 10/01/24 0658 Blood Culture Methicillin Resistant Staphylococcus aureus Comment: detected by PCR Isolate saved. If future testing is required, contact the Microbiology Carton Counter Feeder. Gram Stain Aerobic Bottle: Gram positive cocci in clusters Susceptibility Methicillin Resistant Staphylococcus aureus VITEK 2 METHOD Clindamycin Resistant Gentamicin Susceptible [1] Linezolid Susceptible Oxacillin Resistant Trimethoprim/Sulfa Susceptible Vancomycin Susceptible [1] Gentamicin is not appropriate for monotherapy for gram-positive infections. Blood culture [[id number]] (Abnormal) Collected: 09/26/24 1845 Lab Status: Final result Specimen: Blood, Venous Updated: 10/01/24 0658 Blood Culture Methicillin Resistant Staphylococcus aureus Comment: isolated. Susceptibilities previously reported. Gram Stain Aerobic Bottle: Gram positive cocci in clusters Abscess/Wound Aspirate Culture, Aerobic & Anaerobic [[id number]] (Abnormal) Collected: 09/26/24 1650 Lab Status: Final result Specimen: Abscess from Groin, Left Updated: 09/30/24 1551 Narrative: The following orders were created for panel order Abscess/Wound Aspirate Culture, Aerobic & Anaerobic. Procedure Abnormality Status --------- ------ Abscess/Wound Aspirate C...[[id number]] Abnormal Final result Anaerobic Culture[[id number]] Final result Please view results for these tests on the individual orders. Anaerobic Culture [[id number]] Collected: 09/26/24 1650 Lab Status: Final result Specimen: Abscess from Groin, Left Updated: 09/30/24 1551 Anaerobic Culture No anaerobic organisms isolated Abscess/Wound Aspirate Culture, Aerobic & Anaerobic [[id number]] (Abnormal) Collected: 09/26/24 170 Lab Status: Final result Specimen: Abscess from Knee, Left Updated: 09/30/24 1551 Narrative: The following orders were created for panel order Abscess/Wound Aspirate Culture, Aerobic & Anaerobic. Procedure Abnormality Status --------- ------ Abscess/Wound Aspirate C...[[id number]] Abnormal Final result Anaerobic Culture[[id number]] Final result Please view results for these tests on the individual orders. Anaerobic Culture [[id number]] Collected: 09/26/24 170 Lab Status: Final result Specimen: Abscess from Knee, Left Updated: 09/30/24 1551 Anaerobic Culture No anaerobic organisms isolated Sonicated Tissue/Implant Culture [[id number]] (Abnormal) Collected: 09/26/24 1716 Lab Status: Final result Specimen: Vascular Graft from Leg, Left Updated: 09/30/24 1349 Sonicated Tissue/Implant Culture Methicillin Resistant Staphylococcus aureus Comment: isolated from broth culture. Susceptibilities previously reported. Abscess/Wound Aspirate Culture, Aerobic Only [[id number]] (Abnormal) (Susceptibility) Collected: 09/26/24 1702 Lab Status: [...] to doxycycline. Abscess/Wound Aspirate Culture, Aerobic Only [[id number]] (Abnormal) (Susceptibility) Collected: 09/26/24 1650 Lab Status: [...] is considered susceptible to doxycycline. AFB culture [[id number]] Collected: 09/27/24 165 Lab Status: Preliminary result Specimen: Tissue from Thigh, Left Updated: 09/29/24 1201 Acid Fast Bacilli Culture No acid fast bacilli isolated to date. Acid Fast Stain No acid fast bacilli seen AFB culture [[id number]] Collected: 09/26/24 1702 Lab Status: Preliminary result Specimen: Abscess from Knee, Left Updated: 09/29/24 1201 Acid Fast Bacilli Culture No acid fast bacilli isolated to date. Acid Fast Stain No acid fast bacilli seen Fungus culture [[id number]] Collected: 09/27/24 165 Lab Status: Preliminary result Specimen: Tissue from Thigh, Left Updated: 09/28/24 0748 Fungus Culture No fungus isolated to date MRSA PCR Screen [[id number]] (Abnormal) Collected: 09/27/24 0751 Lab Status: Final result Specimen: Swab from Nares Updated: 09/27/24 1156 MRSA PCR Detected Narrative: This test was performed using the Xpert MRSA NxG test kit and is run on the [employer] GeneXpert Dx System. This test is cleared by the U.S. Food and Drug Administration for clinical use and its performance characteristics have been verified by the [facility] at [facility]. New Studies: - None Assessment & Plan: Geovnana Dixon Jr. is a 49 y.o. male with a history of HTN, HLD, NSTEMI, CAD s/p CABG (12/2011), DM,obesity, PAD s/p L iliofem endart and L fem-BK pop bypass and L 2nd toe amputation who was transferred from [facility] given concern for infected left fem-BK popliteal PTFE bypass. He is now s/p an explantof an infected left femoral-below knee popliteal artery bypass graft (09/26), I/D groin abscess (), L GSV harvest, vein patch angioplasty, L FRIT MAKER and BK pop w/ sartorius flap L [...] 81mg daily Benjamin Iniguez MD 10/04/2024 Pager: [phone] Associated attestation - Hayley Torres MD - [...] was scheduled for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 Status: Final result Specimen: Swab from Nares Updated: 09/27/24 1156 MRSA PCR Detected Narrative: This test was performed using the Xpert MRSA NxG test kit and is run on the [employer] Dx System. This test is cleared by the U.S. Food and Drug Administration for clinical use and its performance characteristics have been verified by the Clinical Genomics and [facility] Technology Laboratory at [facility]. Fungus culture [[id number]] Collected: 09/26/24 165 Lab Status: Preliminary result Specimen: Abscess from Groin, Left Updated: 09/27/24 0727 Fungus Culture No fungus isolated to date Fungus culture [[id number]] Collected: 09/26/24 1702 Lab Status: Preliminary result [...] 2nd toe amputation who was transferred from [facility] given concern for infected left fem-BK popliteal PTFE bypass. He is now s/p an explantof an infected left femoral-below knee popliteal artery bypass graft (09/26), I/D groin abscess (), L GSV harvest, vein patch angioplasty, L FRIT MAKER and BK pop w/ sartorius flap L fem, I/D, 09/29 L sartorius flap revision, vac change. 10/01/24: Tolerated gentle irrigation with saline at BSD today with clear to mildly serosang drainage - no purulence or malodor noted and patient tolerated well. Will plan for NPO at [facility] for return Sylwia tomorrow. Hypertensive overnight, home [...] - ISS - diet today; NPO at [facility] for OR Tuesday 10/02 Anticoagulation: SQH TID Antiplatelet: ASA 81 María Carranza, CERTIFIED CODER 10/01/2024 Pager: [phone] * Karolyn Hudson MD - 09/30/2024 11:21 AM EST Images from the original note were not included. Vascular Surgery Progress Note Patient ID Geovanna Dixon Jr. is a 49 y.o. male with history of HTN, HLD, NSTEMI, CAD s/p CABG (12/2011), DM, obesity, PAD s/p L iliofem endart and L fem-BK pop bypass and L 2nd toe amputation who was transferred from [facility] given concern for infected left fem-BK [...] smoking 1 week ago. He presented to [facility] on 09/26 and went [...] Procedure Component Value - Date/Time Blood culture [[id number]] (Abnormal) Collected: 09/27/24 2133 Lab Status: Preliminary result Specimen: Blood, Venous Updated: 09/30/24 0718 Blood Culture Methicillin Resistant Staphylococcus aureus Comment: Susceptibilities previously reported. Gram Stain Aerobic Bottle: Gram positive cocci in clusters Blood culture [[id number]] Collected: 09/28/24 1749 Lab Status: Preliminary result Specimen: Blood, Venous Updated: 09/29/24 1901 Blood Culture No Growth at 18-24 hrs. AFB culture [[id number]] Collected: 09/27/24 1654 Lab Status: Preliminary result Specimen: Tissue from Thigh, Left Updated: 09/29/24 1201 Acid Fast Bacilli Culture No acid fast bacilli isolated to date. Acid Fast Stain No acid fast bacilli seen AFB culture [[id number]] Collected: 09/26/24 1702 Lab Status: Preliminary result Specimen: Abscess from Knee, Left Updated: 09/29/24 1201 Acid Fast Bacilli Culture No acid fast bacilli isolated to date. Acid Fast Stain No acid fast bacilli seen Sonicated Tissue/Implant Culture [[id number]] (Abnormal) Collected: 09/26/24 1716 Lab Status: Preliminary result Specimen: Vascular Graft from Leg, Left Updated: 09/29/24 1132 Sonicated Tissue/Implant Culture Methicillin Resistant Staphylococcus aureus Comment: isolated from broth culture. Susceptibilities previously reported. Tissue Culture, Aerobic Only [[id number]] (Abnormal) (Susceptibility) Collected: 09/27/24 1654 Lab Status: [...] is considered susceptible to doxycycline. Blood culture [[id number]] (Abnormal) Collected: 09/26/24 1845 Lab Status: Preliminary result Specimen: Blood, Venous Updated: 09/29/24 0719 Blood Culture Methicillin Resistant Staphylococcus aureus Comment: isolated. Susceptibilities previously reported. Gram Stain Aerobic Bottle: Gram positive cocci in clusters Blood culture [[id number]] (Abnormal) (Susceptibility) Collected: 09/26/24 1422 Lab Status: Preliminary result Specimen: Blood, Venous Updated: 09/29/24 0717 Blood Culture Methicillin Resistant Staphylococcus aureus Comment: detected by PCR Isolate saved. If future testing is required, contact the Microbiology Carton Counter Feeder. Gram Stain Aerobic Bottle: Gram positive cocci in clusters Susceptibility Methicillin Resistant Staphylococcus aureus VITEK 2 METHOD Clindamycin Resistant Gentamicin Susceptible [1] Linezolid Susceptible Oxacillin Resistant Trimethoprim/Sulfa Susceptible Vancomycin Susceptible [1] Gentamicin is not appropriate for monotherapy for gram-positive infections. Anaerobic Culture [[id number]] Collected: 09/27/24 1654 Lab Status: Preliminary result Specimen: Tissue from Thigh, Left Updated: 09/28/24 1355 Anaerobic Culture No anaerobic organisms isolated to date Abscess/Wound Aspirate Culture, Aerobic Only [[id number]] (Abnormal) (Susceptibility) Collected: 09/26/24 1702 Lab Status: [...] to doxycycline. Abscess/Wound Aspirate Culture, Aerobic Only [[id number]] (Abnormal) (Susceptibility) Collected: 09/26/241649 Lab Status: Preliminary [...] is considered susceptible to doxycycline. Fungus culture [[id number]] Collected: 09/27/241653 Lab Status: Preliminary result Specimen: Tissue from Thigh, Left Updated: 09/28/24 0748 Fungus Culture No fungus isolated to date MRSA PCR Screen [[id number]] (Abnormal) Collected: 09/27/24 0751 Lab Status: Final result Specimen: Swab from Nares Updated: 09/27/24 1156 MRSA PCR Detected Narrative: This test was performed using the Xpert MRSA NxG test kit and is run on the [employer] GeneXpert Dx System. This test is cleared by the U.S. Food and Drug Administration for clinical use and its performance characteristics have been verified by the Clinical Genomics and [facility] Technology Laboratory at [facility]. Anaerobic Culture [[id number]] Collected: 09/26/241649 Lab Status: Preliminary result Specimen: Abscess from Groin, Left Updated: 09/27/24 1142 Anaerobic Culture No anaerobic organisms isolated to date Anaerobic Culture [[id number]] Collected: 09/26/24 1702 Lab Status: Preliminary result Specimen: Abscess from Knee, Left Updated: 09/27/24 1142 Anaerobic Culture No anaerobic organisms isolated to date Fungus culture [[id number]] Collected: 09/26/241649 Lab Status: Preliminary result Specimen: Abscess from Groin, Left Updated: 09/27/24 0727 Fungus Culture No fungus isolated to date Fungus culture [[id number]] Collected: 09/26/24 1702 Lab Status: Preliminary result Specimen: Abscess from Knee, Left Updated: 09/27/24 0710 Fungus Culture No fungus isolated to date New Studies Results for orders placed or performed during the hospital encounter of 09/26/24 Request For 2nd Read CT Lower Extremity (Exam End: 09/26/2024 1:50 PM) Result Value WORKSTATION ID [id number] Impression 1. There is a left femoral [...] have questions please contact the health care director that requested your imaging first. Lower Extremity w Contrast Left (Exam End: 09/27/2024 9:16 AM) Result Value WORKSTATION ID [id number] Impression IMPRESSION: 1. Interval explant of LEFT [...] have questions please contact the health care director that requested your imaging first. 09/28 ABIs [...] 2nd toe amputation who was transferred from [facility] given concern for infected left fem-BK [...] Labs 09/28/24 1516 PHART 7.42 PO2ART 103 [id number] 39 LACTATEART 1.1 BEART 0.2 Is this patient critically ill? Is there a high potential of sudden, clinically significant, or life threatening deterioration? No Is there a need for direct personal assessment and management to treat/prevent multiple vital organfailure/deterioration? No D. Alex Gonsalez MD * Mraiya Shi RN - 09/29/2024 10:31 PM EST [...] 1643 PHART 7.42 7.38 PO2ART 103 96 [id number] 41 LACTATEART 1.1 1.7 BEART 0.2 [...] Thank you, Renea Nunez, MS, RD, LD, [facility] Clinical Nutrition * Mariya Shi RN - [...] Diet CC Monitoring: Q4 Fawn Cunningham APRN [facility] Endocrinology Diabetes Management Pager [phone] Weekends please page [phone] 35 minutes were spent over the course [...] Labs 09/26/24 1643 PHART 7.38 PO2ART 96 [id number] 41 LACTATEART 1.7 BEART -1.4 Is this [...] 2nd toe amputation who was transferred from [facility] given concern for infected left fem-BK [...] smoking 1 week ago. He presented to [facility] on 09/26 and went [...] Procedure Component Value - Date/Time Fungus culture [[id number]] Collected: 09/27/24 1654 Lab Status: Preliminary result Specimen: Tissue from Thigh, Left Updated: 09/28/24 0748 Fungus Culture No fungus isolated to date Blood culture [[id number]] (Abnormal) Collected: 09/26/24 1845 Lab Status: Preliminary result Specimen: Blood, Venous Updated: 09/28/24 0711 Blood Culture Methicillin Resistant Staphylococcus aureus Comment: isolated. Susceptibility testing in progress. Gram Stain Aerobic Bottle: Gram positive cocci in clusters AFB culture [[id number]] Collected: 09/26/24 170 Lab Status: Preliminary result Specimen: Abscess from Knee, Left Updated: 09/27/24 2335 Acid Fast Stain No acid fast bacilli seen Tissue Culture, Aerobic Only [[id number]] Collected: 09/27/24 165 Lab Status: Preliminary result Specimen: Tissue from Thigh, Left Updated: 09/27/24 1810 Gram Stain Few Neutrophils seen No microorganisms seen Abscess/Wound Aspirate Culture, Aerobic Only [[id number]] (Abnormal) Collected: 09/26/24 170 Lab Status: Preliminary result Specimen: Abscess from Knee, Left Updated: 09/27/24 1520 Abscess/Wound Aspirate Culture Many Staphylococcus aureus Gram Stain Many neutrophils Many Gram positive cocci Abscess/Wound Aspirate Culture, Aerobic Only [[id number]] (Abnormal) Collected: 09/26/241649 Lab Status: Preliminary result Specimen: Abscess from Groin, Left Updated: 09/27/24 1519 Abscess/Wound Aspirate Culture Many Staphylococcus aureus Gram Stain Many neutrophils Many Gram positive cocci Blood culture [[id number]] (Abnormal) Collected: 09/26/24 1422 Lab Status: Preliminary result Specimen: Blood, Venous Updated: 09/27/24 1320 Blood Culture Methicillin Resistant Staphylococcus aureus Comment: detected by PCR Gram Stain Aerobic Bottle: Gram positive cocci in clusters MRSA PCR Screen [[id number]] (Abnormal) Collected: 09/27/24 0751 Lab Status: Final result Specimen: Swab from Nares Updated: 09/27/24 1156 MRSA PCR Detected Narrative: This test was performed using the Xpert MRSA NxG test kit and is run on the [employer] GeneXpert Dx System. This test is cleared by the U.S. Food and Drug Administration for clinical use and its performance characteristics have been verified by the Clinical Genomics and [facility] Technology Laboratory at [facility]. Anaerobic Culture [[id number]] Collected: 09/26/24 165 Lab Status: Preliminary result Specimen: Abscess from Groin, Left Updated: 09/27/24 1142 Anaerobic Culture No anaerobic organisms isolated to date Anaerobic Culture [[id number]] Collected: 09/26/24 170 Lab Status: Preliminary result Specimen: Abscess from Knee, Left Updated: 09/27/24 1142 Anaerobic Culture No anaerobic organisms isolated to date Fungus culture [[id number]] Collected: 09/26/24 1650 Lab Status: Preliminary result Specimen: Abscess from Groin, Left Updated: 09/27/24726 Fungus Culture No fungus isolated to date Fungus culture [[id number]] Collected: 09/26/24 1702 Lab Status: Preliminary result Specimen: Abscess from Knee, Left Updated: 09/27/24726 Fungus Culture No fungus isolated to date New Studies Results for orders placed or performed during the hospital encounter of 09/26/24 Request For 2nd Read CT Lower Extremity (Exam End: 09/26/2024 1:50 PM) Result Value WORKSTATION ID [id number] Impression 1. There is a left femoral [...] have questions please contact the health care director that requested your imaging first. Lower Extremity w Contrast Left (Exam End: 09/27/2024 9:16 AM) Result Value WORKSTATION ID [id number] Impression IMPRESSION: 1. Interval explant of LEFT [...] have questions please contact the health care director that requested your imaging first. Assessment & Plan Geovanna Dixon Jr. is a 49 y.o. male with a history of HTN, HLD, NSTEMI, CAD s/p CABG (12/2011), DM,obesity, PAD s/p L iliofem endart and L fem-BK pop bypass and L 2nd toe amputation who was transferred from [facility] given concern for infected left fem-BK [...] Superior part of dressing taken down. [address] Abd pads with serosanguinous [...] Kita Hodge - 09/27/2024 3:58 PM EST Water Tender Encounter Note Patient Name: Geovanna Dixon Jr. : [id number] MR#: [id number] Admit Date: 09/26/2024 2:08 PM Hospital Day 1 day Narrative: Barrel Tester And Drainer initiated visit with patient during rounds on the unit. Patient indicated that he was not denominational. He reported that he was in less [...] Labs 09/26/24 1643 PHART 7.38 PO2ART 96 [id number] 41 LACTATEART 1.7 BEART -1.4 Is this [...] 2nd toe amputation who was transferred from [facility] given concern for infected left fem-BK [...] smoking 1 week ago. He presented to [facility] on 09/26 and went [...] 2nd toe amputation who was transferred from [facility] given concern for infected left fem-BK popliteal PTFE bypass. He is now s/p an explantof an infected left femoral-below knee popliteal artery bypass graft. Significant purulence under pr essure was seen intraoperatively, surrounding the entire bypass at proximal and distal anastomoses as well as the tunnel. There are retained grafts left at proximal and distal anastomoses, and a Fair[place] drain placed from left groin to left [...] graft associated infection. The patient presented to [facility] ED on 09/26 for evaluation of [...] remained hemodynamically stable during his time at [facility] and was transported by ground to [facility] for vascular surgery consultation. [...] 3.51) performed by Thony Garcia MD at [facility] MAIN OR PRO BYPASS GRAFT OTHR, FEM-TIBIAL Left 08/01/2024 @BYPASS GRAFT, FEM-ANT TIBIAL, -POST TIBIAL, -PERONEAL, -DP W\ SYNTHETIC CONDUIT (WRVU 23.66) performed by Lisette Maldonado MD at [facility] MAIN OR PRO CABG, ARTERY-VEIN, SINGLE 01/04/2012 @CABG, VENOUS & ARTERIAL GRAFT;SINGLE VEIN GRAFT performed by INNA TOVAR at [facility] MAIN OR PRO ENDOSCOPY W/VIDEO-ASST VEIN HARVEST, CABG 01/04/2012 ENDOSCOPIC HARVEST VEIN(S) FOR CABG performed by INNA TOVAR at [facility] MAIN OR VS ARTERIOGRAM LOWER EXTREMITY VASCULAR SURGERY 07/20/2024 VS Arteriogram Lower Extremity Vascular Surgery 07/20/2024 Anabel Finney MD [facility] INTERVENTIONL RAD Prior To Admission Medications: [...] 3 times daily. Use as instructed Indications: [id number] each 1 Past Week FreeStyle Lancets 28 [...] mellitus, whatver the most affordable version is forPointCare insurance 15 mL 1 Past Week insulin [...] 200 - 393 mg/dL Type and screen ([facility]/CGP/BABITA) Result Value Ref Range ABORH Type A POSITIVE PATIENT HISTORY Found Expires at 2359 on: 09/29/2024 ANTIBODY SCREEN AUTOMATED Negative T&S only valid at [facility] LAB CBC (with Diff) [...] 09/26/2024 1:50 PM) Result Value WORKSTATION ID [id number] Impression 1. There is a left femoral [...] have questions please contact the health care director that requested your imaging first. Assessment/Plan: Geovanna [...] to the planned procedure. Hand Hygiene: The pan dumper did perform hand hygiene prior to line insertion. Catheter type: PICC Lot number: [id number] Procedure Technique: Skin was prepped with chlorhexidine. [...] to the planned procedure. Hand Hygiene: The pan dumper did perform hand hygiene prior to line insertion. Catheter type: PICC Lot number: [id number] Procedure Technique: Skin was prepped with chlorhexidine. [...] tomorrow afternoon. Home Vac: I have called [facility] Inventory and they they have now delivered the home ActiVac serial # [id number]. Pt reviewed the [facility] ActiVac Proof of Delivery/Assignment of Benefits (POD/AOB)form and signed it; she has copy of this and the [facility] Patient Copy letter along with the supplies, I will fax copy of the POD/AOB to [facility]. Needs for Transition of Care: Plan for discharge is: Home w/ Services Outpatient Agency/Support Group Needs: Homecare agency Outpatient IV Medications - IV Access: Access Ordered Location: Home, Referred to [facility] Coordination, Referred to [facility] Services: Occupational Therapy, Physical Therapy, Registered Nurse Agency Referrals & Follow-up Care: Contact information [place] [facility] [place] [id number] [facility] [address] Transportation: family or friend will provide Functional status prior to admission: Independent Home Environment: Others in the home: sibling(s), other (see comments) (lives with his sister delmy and brother in law). Current Living Arrangements: home/apartment/condo. Accessibility Concerns: . Current Functional Ability: Assistive Person and Equipment DME used at home: none Other DME Needs: Wound Vac Provider: [facility] Patient is insured through: Primary Insurance: [employer]ED MEDICARE Payor: [employer] MEDICARE / Plan: [employer] MEDICARE PPO / Product Type: *No [...] Pain Flowsheets Taken 10/09/20242022 Pain Management Interventions: ynqzsl-mwy-ouoot dosing utilized care clustered diversional activity provided [...] from the original note were not included. [facility] [place] [address] [facility] Vascular Access Service Peripherally Inserted Central Catheter (PICC) Teaching Sheet Peripherally inserted central catheters (mbha-ya-kohi) (PICC) are used when you need IV [...] midline catheter? PICC lines are used for senior care treatments. PICC lines may be used for [...] can be set up via the nurse Link Trainer Teacher to help you. What are possible complications [...] Efficacy, Safety, Use, and Administration of Cathflo, [employer] 2005 * Care Management - Cristina [...] Ordered Location: Home, Referred to [facility] Coordination Home Health Services: Occupational Therapy, Physical Therapy, Registered Nurse- will remove PT, OT Agency Referrals: [facility] and [facility] [place] for IV abx. [facility] can come tomorrow [...] 9:00 AM EST OFFICE OF CARE MANAGEMENT Link Trainer Teacher Follow-up Note Cristina Turner RN reviewed record [...] medically ready. Current Referral in place: VNA: [facility] Wound vac ordered in [employer] for home wound vac and order emailed to: María for signature. Link Trainer Teacher to follow with team and family to [...] where referrals are placed. Request referral to [place], [place] for IV abx or . Expected date of discharge: 10/11. Patient will require teaching. Referral routed to the Helicopter Technician for matching with agency/vendor and to [...] care clustered diversional activity provided position adjusted cvkisg-gfr-kgndj dosing utilized pain management plan reviewed with [...] have. Alternately, during off-hours you may call [phone] to contact a pharmacist. * Plan of Care - Jordyn Navas RN - 10/07/2024 7:21 PM EST OUTCOME EVALUATION NOTE: OUTCOME SUMMARY: [facility], Meds/Assessments as charted, [...] PM EST PICC line placed today for senior care ABX. Neurovascular checks unchanged. Good oral intake [...] from the [place] [address] [facility] Vascular Access Service Peripherally Inserted Central Catheter (PICC) Teaching Sheet Peripherally inserted central catheters (cihp-hh-ylxa) (PICC) are used when you need IV [...] midline catheter? PICC lines are used for senior care treatments. PICC lines may be used for [...] can be set up via the nurse Link Trainer Teacher to help you. What are possible complications [...] Vascular Access Device Selection, Insertion, and Management, Stupil Access Systems 08/12. A Review of the Efficacy, Safety, Use, and Administration of Cathflo, [employer] 2005 * Care Management - Vibha [...] No Patient is insured through: Primary Insurance: [employer] MA[employer]ED MEDICARE Payor: [employer] MEDICARE / Plan: [employer] MEDICARE PPO / Product Type: *No [...] of Discharge: 10/10/2024 Vibha Wahl RN-BSN-CM Pager: [phone] * Consult Note - Stormy Muller [facility] - 10/06/2024 9:19 AM EST [facility] Pharmacokinetics Note Drug: Vancomycin Pharmacokinetic target: [...] Analysis of the most recent level(s) using [employer] gives the following patient-specific pharmacokinetic parameters: CL: [...] in a steady-state trough of 14.6 mg/L [id number] of 508 mg/L.hr. Recommendations: - SCr has [...] Meeks MD - 10/04/2024 5:01 PM EST [facility] Operative Note Patient Name: Geovanna Dixon Jr. : [id number] MR#: [id number] Case Date: 10/04/2024 Surgeon: Surgeons and Role: * Marko Dickson MD - Primary * Cristino Meeks MD - Resident - Assisting Preoperative diagnosis: Status post explant of infected left FRIT MAKER-BK pop bypass graft Postoperative diagnosis: Status post explant of infected left FRIT MAKER-BK pop bypass graft Procedure(s) (LRB): DEBRIDEMENT SKIN [...] 2nd toe amputation who was transferred from [facility] given concern for infected left fem-BK popliteal PTFE bypass. He is now s/p an explant of an infected left femoral-below knee popliteal artery bypass graft on 09/26 followed by I/D posterior thigh abscess on 09/27 then left GSV harvest, total explant of remaining PTFE then vein patch angioplasty of the left FRIT MAKER and BK popliteal artery on 09/28 then [...] Note Patient Name: Geovanna Dixon Jr. : [id number] MR#: [id number] Case Date: 10/04/2024 Surgeon: Surgeons and Role: * Marko Dickson MD - Primary * Cristino Meeks MD - Resident - Assisting Preoperative diagnosis: Status post explant of infected left FRIT MAKER-BK pop bypass graft Postoperative diagnosis: Status post explant of infected left FRIT MAKER-BK pop bypass graft Procedure(s) (LRB): DEBRIDEMENT SKIN [...] No Patient is insured through: Primary Insurance: [employer] MANAGED MEDICARE Payor: [employer] MANAGED MEDICARE / Plan: [employer] MANAGED MEDICARE PPO / Product Type: *No [...] BIT to reengage please page BIT @ [phone] * Consult Note - Vangie Chandra [facility] - 10/04/2024 10:42 AM EST [facility] Pharmacokinetics Note Drug: Vancomycin Pharmacokinetic target: AUC24 (range) 400-600 mg/L.hr Current regimen: 1500 mg IV every 8 hours Geovanna Dixon is a(n) 49 years old male receiving Vancomycin 1500 mg IV every 8 hours for graft infection Recent measured serum creatinine values: 10/04/2024 00:08 0.56 mg/dL 10/03/2024 00:27 0.51 mg/dL 10/02/2024 00:41 0.49 mg/dL Assessment: Analysis of the most recent level(s) using [employer] gives the following patient-specific pharmacokinetic parameters: CL: [...] L 2nd toe amputationwho was transferred from [facility] given concern for infected left fem-BK popliteal PTFE bypass. He is now s/p an explant of an infected left femoral-below knee popliteal artery bypass graft (09/26), I/D groin abscess (09/27), L GSV harvest, vein patch angioplasty, L FRIT MAKER and BK pop w/ sartorius flap L fem, I/D, 09/29 L sartorius flap revision, vac change. 10/03/24 NPO at [facility] for OR wound exploration. Wound [...] METATARSO-PHALANGEAL JOINT (WRVU 3.51) performed by Thony Gracia MD at [facility] MAIN OR PRO BYPASS GRAFT OTHR, FEM-TIBIAL Left 08/01/2024 @BYPASS GRAFT, FEM-ANT TIBIAL, -POST TIBIAL, -PERONEAL, -DP W\ SYNTHETIC CONDUIT (WRVU 23.66) performed by Lisette Maldonado MD at [facility] MAIN OR PRO CABG, ARTERY-VEIN, SINGLE 01/04/2012 @CABG, VENOUS & ARTERIAL GRAFT;SINGLE VEIN GRAFT performed by INNA TOVAR at [facility] MAIN OR PRO DEBRIDEMENT MUSCLE AND FASCIA 20 SQ CM/< Left 09/29/2024 DEBRIDEMENT SKIN, SUBCU, MUSCLE, LOWER EXTREMITY (WRVU 2.7) performed by Anabel Finney MD at [facility] MAIN OR PRO DEBRIDEMENT MUSCLE AND FASCIA 20 SQ CM/< Left 10/02/2024 DEBRIDEMENT SKIN, SUBCU, MUSCLE, LOWER EXTREMITY (WRVU 2.7) performed by Hermila Mccormick MDat [facility] MAIN OR PRO DEBRIDEMENT SUBCUTANEOUS TISSUE 20 SQCM/< Left 09/27/2024 DEBRIDEMENT SKIN AND SUBCU, LOWER EXTREMITY (WRVU 1.01) performed by Hayley Torres MD at [facility] MAIN OR PRO DRAIN LOWER LEG DEEP ABSC/HEMATOMA Left 09/26/2024 INCISION & DRAINAGE, LEG OR ANKLE, DEEP ABSCESS OR HEMATOMA (WRVU 5.23) performed by Hayley Torres MD at [facility] OR PRO ENDOSCOPY W/VIDEO-ASST VEIN HARVEST, CABG 01/04/2012 ENDOSCOPIC HARVEST VEIN(S) FOR CABG performed by INNA TOVAR at [facility] MAIN OR PRO EXCISION, INFEC GRAFT, EXTREMITY Left 09/26/2024 EXCISION OF INFECTED GRAFT FROM LOWER EXTREMITY (WRVU 9.53) performed by Hayley Torres MD at [facility] MAIN OR PRO EXCISION, INFEC GRAFT, EXTREMITY Left 09/28/2024 EXCISION OF INFECTED GRAFT FROM LOWER EXTREMITY (WRVU 9.53) performed by Hayley Torres MD at [facility] MAIN OR PRO EXPLORATION NOT FOLLOWED BY SURG LOWER EXTREMITY ARTERY Left 09/29/2024 @EXPLORATION W\O SURGICAL REPAIR, FEMORAL ARTERY - JENNIFER (WRVU 7.5) performed by Anabel Finney MD at [facility] MAIN OR PRO FORM SKIN PEDICLE FLAP SCALP, ARM, LEG 09/28/2024 FLAP, PEDICLE,W OR W/O TRANSFER, LEGS (WRVU 10.12) performed by Hayley Torres MD at [facility] MAIN OR PRO I&D DEEP ABSCESS BURSA/HEMATOMA THIGH/KNEE REGION Left 09/26/2024 INCISION & DRAINAGE ABSCESS OR HEMATOMA, THIGH, KNEE SUPERFICIAL (WRVU 6.78) performed by Hayley Torres MD at [facility] MAIN OR PRO REVISION FEMORAL ANAST BPG GROIN OPEN W/NONAUTOG PATCH GRAFT Left 09/28/2024 REV. FEM. ANASTOMOSIS OF SYN. BYPASS GRAFT USING NONAUTOGENOUS PATCH ANGIOPLASTY-JENNIFER (WRVU 23.15) performed by Hayley Torres MD at [facility] MAIN OR PRO UNLISTED PROCEDURE VASCULAR SURGERY Left 09/28/2024 HARVEST SAPHENOUS VEIN (WRVU 13.24) performed by Hayley Torres MD at [facility] MAIN OR VS ARTERIOGRAM LOWER EXTREMITY VASCULAR SURGERY 07/20/2024 VS Arteriogram Lower Extremity Vascular Surgery 07/20/2024 Anabel Finney MD [facility] INTERVENTIONL RAD Social History: Patient lives [...] Pt issued and educated on use of parts designer for parts designer lower items. Self-feeding: Independent Grooming: Set up [...] Discharge planning Total Minutes, Occupational Therapy: 35 ([id number]) OT Evaluation Code Rationale: Diagnosis & Pertinent Co-Morbidities affecting Plan of Care: see PMHx Occupational Profile & Client History: Brief Expanded Extensive x Assessment of Occupational Performance: 1-3 performance deficits 3-5 performance deficits x 5 + performance deficits Clinical Decision Making: Low Moderate High x Clinical decision making of low complexity using standardized patient assessment instrument and measurable assessment of functional outcome. Pager: [phone] Jorge Goetz OT 10/03/2024 Occupational Therapy Rehabilitation [...] Mccormick MD - 10/02/2024 2:06 PM EST [facility] Operative Note Patient Name: Geovanna Dixon Jr. : [id number] MR#: [id number] Case Date: 10/02/2024 Surgeon: Surgeons and Role: [...] 2nd toe amputation who was transferred from [facility] given concern for infected left fem-BK [...] fluid at most inferior portion along the [place] tunnel. Otherwise, the wound had healthy granulation [...] the groin, we then attached a 15 [place] Jose drain to the [place] drain, and remove the Yung drain, replacing it with the 15 [place]ran Jose drain. In a similar way we [...] through: Primary Insurance: [employer] MANAGED MEDICARE Payor: [employer] MANAGED MEDICARE / Plan: [employer] MANAGED MEDICARE PPO / Product Type: *No Product type* / Secondary Insurance: N/A Plan for discharge is: Pending Hospital Course and PT/OT Recommendations Outpatient Agency/Support Group Needs: None Home Health Services: Occupational Therapy, Physical Therapy, Registered Nurse Agency Referrals: [facility]. [address] [place] [address] Transportation: family or friend will provide Barriers to discharge: Global: Denies needs/concerns at this time Plan: Patient is not medically ready related to: patient is going to the OR today for a washout andremains on blowout precautions. Plan going forward is: when able patient will need to work with PT/OT Anticipated Date of Discharge: 10/10/2024 Penny ROSAS, RN Phone: [phone] Pager: [phone] * Plan of Care - Heidi Mobley [...] OR today * Plan of Care - Eevr Moulton RN - 10/01/2024 6:32 AM EST [...] output. * Consult Note - Katelyn Oconnor [facility] - 09/30/2024 7:43 AM EST [facility] Pharmacokinetics Note Drug: Vancomycin Pharmacokinetic target: AUC24 (range) 400-600 mg/L.hr Current regimen: 1500 mg IV every 8 hours Geovanna Dixon is a(n) 49 years old male receiving Vancomycin 1500 mg IV every 8 hours for bacteremia Recent measured serum creatinine values: 09/29/2024 23:52 0.48 mg/dL 09/28/2024 23:51 0.52 mg/dL 09/27/2024 23:58 0.48 mg/dL Assessment: Analysis of the most recent level(s) using [employer] gives the following patient-specific pharmacokinetic parameters: CL: [...] Finney MD - 09/29/2024 2:41 PM EST [facility] Operative Note Patient Name: Geovanna Dixon Jr. : [id number] MR#: [id number] Case Date: 09/29/2024 Surgeon: Surgeons and Role: [...] 2nd toe amputation who was transferred from [facility] given concern for infected left fem-BK [...] mobilized and explored. The area around the FRIT MAKER was irrigated copiously. The flap was then [...] closed with interrupted vicryl sutures and cameron. [place] were also placed at the superior aspect [...] No Patient is insured through: Primary Insurance: Plan B [employer] MANAGED MEDICARE Payor: [employer] MANAGED MEDICARE / Plan: [employer] MANAGED MEDICARE PPO / Product Type: *No Product type* / Secondary Insurance: N/A Plan for discharge is: Pending Hospital Course and PT/OT Recommendations Outpatient Agency/Support Group Needs: None Home Health Services: Occupational Therapy, Physical Therapy, Registered Nurse Agency Referrals: [facility] [address] [place] [address] Transportation: family or friend will provide Barriers [...] Discharge: 10/04/2024 Penny ROSAS RN CM Phone: [phone] Pager: [phone] * Consult Note - Rose Wright APRN [...] 2nd toe amputation who was transferred from [facility] given concern for infected left fem-BK [...] smoking 1 week ago. He presented to [facility] on 09/26 and went [...] Procedure Component Value - Date/Time Blood culture [[id number]] (Abnormal) Collected: 09/27/242132 Lab Status: Preliminary result Specimen: Blood, Venous Updated: 09/29/24 0721 Blood Culture Methicillin Resistant Staphylococcus aureus Gram Stain Aerobic Bottle: Gram positive cocci in clusters Blood culture [[id number]] (Abnormal) Collected: 09/26/24 1845 Lab Status: Preliminary result Specimen: Blood, Venous Updated: 09/29/24 0719 Blood Culture Methicillin Resistant Staphylococcus aureus Comment: isolated. Susceptibilities previously reported. Gram Stain Aerobic Bottle: Gram positive cocci in clusters Blood culture [[id number]] (Abnormal) (Susceptibility) Collected: 09/26/24 1422 Lab Status: Preliminary result Specimen: Blood, Venous Updated: 09/29/24 0717 Blood Culture Methicillin Resistant Staphylococcus aureus Comment: detected by PCR Isolate saved. If future testing is required, contact the Microbiology Carton Counter Feeder. Gram Stain Aerobic Bottle: Gram positive cocci in clusters Susceptibility Methicillin Resistant Staphylococcus aureus VITEK 2 METHOD Clindamycin Resistant Gentamicin Susceptible [1] Linezolid Susceptible Oxacillin Resistant Trimethoprim/Sulfa Susceptible Vancomycin Susceptible [1] Gentamicin is not appropriate for monotherapy for gram-positive infections. AFB culture [[id number]] Collected: 09/27/24 165 Lab Status: Preliminary result Specimen: Tissue from Thigh, Left Updated: 09/28/24 2226 Acid Fast Stain No acid fast bacilli seen Anaerobic Culture [[id number]] Collected: 09/27/24 165 Lab Status: Preliminary result Specimen: Tissue from Thigh, Left Updated: 09/28/24 1355 Anaerobic Culture No anaerobic organisms isolated to date Sonicated Tissue/Implant Culture [[id number]] Collected: 09/26/24 1716 Lab Status: Preliminary result Specimen: Vascular Graft from Leg, Left Updated: 09/28/24 1323 Sonicated Tissue/Implant Culture Culture in progress Tissue Culture, Aerobic Only [[id number]] (Abnormal) Collected: 09/27/24 165 Lab Status: Preliminary result Specimen: Tissue from Thigh, Left Updated: 09/28/24 1049 Tissue Culture Rare Staphylococcus aureus Gram Stain Few Neutrophils seen No microorganisms seen Abscess/Wound Aspirate Culture, Aerobic Only [[id number]] (Abnormal) (Susceptibility) Collected: 09/26/24 1702 Lab Status: [...] to doxycycline. Abscess/Wound Aspirate Culture, Aerobic Only [[id number]] (Abnormal) (Susceptibility) Collected: 09/26/241649 Lab Status: Preliminary [...] is considered susceptible to doxycycline. Fungus culture [[id number]] Collected: 09/27/24 165 Lab Status: Preliminary result Specimen: Tissue from Thigh, Left Updated: 09/28/24 0748 Fungus Culture No fungus isolated to date AFB culture [[id number]] Collected: 09/26/241701 Lab Status: Preliminary result Specimen: Abscess from Knee, Left Updated: 09/27/24 2335 Acid Fast Stain No acid fast bacilli seen MRSA PCR Screen [[id number]] (Abnormal) Collected: 09/27/24 0751 Lab Status: Final result Specimen: Swab from Nares Updated: 09/27/24 1156 MRSA PCR Detected Narrative: This test was performed using the Xpert MRSA NxG test kit and is run on the [employer] GeneXpert Dx System. This test is cleared by the U.S. Food and Drug Administration for clinical use and its performance characteristics have been verified by the [facility] at [facility]. Anaerobic Culture [[id number]] Collected: 09/26/241649 Lab Status: Preliminary result Specimen: Abscess from Groin, Left Updated: 09/27/24 1142 Anaerobic Culture No anaerobic organisms isolated to date Anaerobic Culture [[id number]] Collected: 09/26/24 170 Lab Status: Preliminary result Specimen: Abscess from Knee, Left Updated: 09/27/24 1142 Anaerobic Culture No anaerobic organisms isolated to date Fungus culture [[id number]] Collected: 09/26/24 1650 Lab Status: Preliminary result Specimen: Abscess from Groin, Left Updated: 09/27/24726 Fungus Culture No fungus isolated to date Fungus culture [[id number]] Collected: 09/26/24 1702 Lab Status: Preliminary result Specimen: Abscess from Knee, Left Updated: 09/27/24726 Fungus Culture No fungus isolated to date New Studies Results for orders placed or performed during the hospital encounter of 09/26/[address] Request For [address]nd Read CT Lower Extremity (Exam End: 09/26/2024 1:50 PM) Result Value WORKSTATION ID [id number] Impression 1. There is a left femoral [...] have questions please contact the health care director that requested your imaging first. Lower Extremity w Contrast Left (Exam End: 09/27/2024 9:16 AM) Result Value WORKSTATION ID [id number] Impression IMPRESSION: 1. Interval explant of LEFT [...] have questions please contact the health care director that requested your imaging first. 09/28 ABIs [...] 2nd toe amputation who was transferred from [facility] given concern for infected left fem-BK [...] at proximal and distal anastomoses and a Fairbanks drain placed from left groin to left [...] Torres MD - 09/28/2024 12:23 PM EST [facility] Operative Note Patient Name: Geovanna Dixon Jr. : [id number] MR#: [id number] Case Date: 09/28/2024 Surgeon: Surgeons and Role: [...] pericardial patch and PTFE willard over the FRIT MAKER was unincorporated. - Resection of prior femoral [...] Destination 1 : Left femoral proximal graft Felt Cementer Leg, Left SURGICAL PATHOLOGY Hayley Torres MD 09/28/2024 1410 2 : Left distal BK pop graft Felt Cementer Leg, Left SURGICAL PATHOLOGY Hayley Torres MD [...] Indications: 49M with history of a left FRIT MAKER-BK popliteal artery bypass with PTFE performed in [...] solution. Systemic heparin was administered. Next, the FRIT MAKER, SFA, and DFA were clamped. An 11-blade scalpel was used to excise the PTFE graft willard and the prior bovine pericardial patch, and all prior Prolene sutures were removed. Residual plaque in the arterial lumen was removed using a [place] elevator. The harvested vein patch was cut [...] the midline with division of the first foot drill operator, such that the sartorius muscle was [...] Torres MD - 09/28/2024 12:23 PM EST [facility] Operative Note Patient Name: Geovanna Dixon Jr. : [id number] MR#: [id number] Case Date: 09/28/2024 Surgeon: Surgeons and Role: [...] - Prior bovine pericardial patch over the FRIT MAKER was unincorporated. - Resection of prior femoral [...] No * Consult Note - Tea Nguyen, [facility] - 09/28/2024 9:23 AM EST Drug: Vancomycin [...] Analysis of the most recent level(s) using [employer] gives the following patient-specific pharmacokinetic parameters: CL: [...] Note Patient Name: Geovanna Dixon Jr. : [id number] MR#: [id number] Case Date: 09/27/2024 Surgeon: Surgeons and Role: [...] Torres MD - 09/27/2024 4:27 PM EST [facility] Operative Note Patient Name: Geovanna Dixon Jr. : [id number] MR#: [id number] Case Date: 09/26/2024 Surgeon: Surgeons and Role: [...] distal anastomoses with Prolene tag on latter. Fairbanks drain placed from left groin to left [...] ANAEROBIC Hayley Torres MD 09/26/2024 1702 Drains: Fairbanks drain between left groin to left thigh [...] HPI/Surgical Indications: 49M with history of left FRIT MAKER-BK popliteal artery bypass graft with PTFE (July [...] Torres MD - 09/27/2024 4:27 PM EST [facility] Operative Note Patient Name: Geovanna Dixon Jr. : [id number] MR#: [id number] Case Date: 09/27/2024 Surgeon: Surgeons and Role: [...] 2nd toe amputation who was transferred from [facility] given concern for infected left fem-BK [...] smoking 1 week ago. He presented to [facility] on 09/26 and went [...] management and to provide a review of senior care diabetes care. Glargine 25 units administered this [...] outpatient diabetes regimen: Diabetes Provider: PCP in [facility] Medications: Lantus 50 units, lispro 10 units [...] Cunningham APRN Endocrinology Diabetes Management Service Pager: [phone] Weekends please page [phone] 80 minute visit was spent in counseling [...] 180 days) Any patient receiving care in [place] must abide by [place] law. The hierarchy [...] (i) The agent with financial power of personal injury attorney or a conservator appointed in accordance [...] In the past 12 months has the [employer], gas, oil, or water [employer] threatened to shut off services in your [...] DME: none Home Address confirmed as: [address] [address] Social & Family Supports: All names listed [...] his home before. Health/Prescription Coverage: Primary Insurance: Plan B [employer] MANAGED MEDICARE Payor: Plan B [employer] MANAGED MEDICARE / Plan: [facility] PPO / Product Type: *No Product type* / Secondary Insurance: N/A ; Prescription Coverage: Yes Preferred Pharmacy: [facility] - [place], [place] - [address] [facility] [address] [facility] [address] [facility] [address] [facility] - [place], [place] - [address] [address] [place], [place] - [address] [place] [address] [address] [facility] [address] [facility] [address] Status: Patient is a : No Primary Care Provider confirmed: JUSTIN Roberson [phone] Patient/Caregiver Goals of Treatment: patient will need [...] where referrals are placed. Provided patient with [facility] Star Quality Rating handout. They have requested referrals to: [facility] [employer]. [address] [place] [address] Expected date of discharge: TBD Referral routed to the Helicopter Technician for matching with agency/vendor and to [...] care as indicated. Penny ROSAS, RN Phone: [phone] Pager: [phone] * Consult Note - Stacey Thomas MD [...] extremity aching prompting him to go to [facility]. The groin pain dissipated. About a week later on 09/26 he developed left-sided groin pain prompting him to go to [facility] once again. Lab work notable for WBC count of 21, lactic acid 3.6. He underwent evaluation with a CT scan demonstrating an abscess from the left groin operative site the entire left of the graft down by the knee. He was transferred to [facility] for further care and he [...] 3.51) performed by Thony Garcia MD at [facility] MAIN OR PRO BYPASS GRAFT OTHR, FEM-TIBIAL Left 08/01/2024 @BYPASS GRAFT, FEM-ANT TIBIAL, -POST TIBIAL, -PERONEAL, -DP W\ SYNTHETIC CONDUIT (WRVU 23.66) performed by Lisette Maldondao MD at [facility] MAIN OR PRO CABG, ARTERY-VEIN, SINGLE 01/04/2012 @CABG, VENOUS & ARTERIAL GRAFT;SINGLE VEIN GRAFT performed by INNA TOVAR at [facility] MAIN OR PRO ENDOSCOPY W/VIDEO-ASST VEIN HARVEST, CABG 01/04/2012 ENDOSCOPIC HARVEST VEIN(S) FOR CABG performed by INNA TOVAR at [facility] MAIN OR VS ARTERIOGRAM LOWER EXTREMITY VASCULAR SURGERY 07/20/2024 VS Arteriogram Lower Extremity Vascular Surgery 07/20/2024 Anabel Finney MD [facility] INTERVENTIONL RAD Medications: potassium chloride ER [...] Continuous Infusions: lactated Ringers 100 mL/hr (09/27/24 1084) sodium chloride 0.9% PRN Meds:.potassium chloride ER [...] admitted to SICU as a transfer from [facility] for suspected graft infection/sepsis. A/Ox4, able [...] Torres MD - 09/26/2024 4:50 PM EST [facility] Operative Note Patient Name: Geovanna Dixon Jr. 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 Postoperative diagnosis: left infected femoral to below knee bypass graft Procedure: Explant of infected LEFT FRIT MAKER to below-knee popliteal artery PTFE bypass graft [...] Indications: 49M with history of a left FRIT MAKER-BK popliteal artery bypass with PTFE performed in [...] tunnel using a large Amy clamp, and Fairbanks drains were used to prevent the tunnel [...] 2nd toe amputation who was transferred from [facility] given concern for infected left fem-BK [...] 3.51) performed by Thony Garcia MD at [facility] MAIN OR PRO BYPASS GRAFT OTHR, FEM-TIBIAL Left 08/01/2024 @BYPASS GRAFT, FEM-ANT TIBIAL, -POST TIBIAL, -PERONEAL, -DP W\ SYNTHETIC CONDUIT (WRVU 23.66) performed by Lisette Maldonado MD at [facility] MAIN OR PRO CABG, ARTERY-VEIN, SINGLE 01/04/2012 @CABG, VENOUS & ARTERIAL GRAFT;SINGLE VEIN GRAFT performed by INNA TOVAR at [facility] MAIN OR PRO ENDOSCOPY W/VIDEO-ASST VEIN HARVEST, CABG 01/04/2012 ENDOSCOPIC HARVEST VEIN(S) FOR CABG performed by INNA TOVAR at [facility] MAIN OR VS ARTERIOGRAM LOWER EXTREMITY VASCULAR SURGERY 07/20/2024 VS Arteriogram Lower Extremity Vascular Surgery 07/20/2024 Anabel Finney MD [facility] INTERVENTIONL RAD Social Hx: Social History [...] 3 times daily. Use as instructed Indications: [id number] each 1 FreeStyle Lancets 28 gauge Misc [...] 2nd toe amputation who was transferred from [facility] given concern for infected left fem-BK [...] PM EST Office [place] [address] Isabela Hayward APRN [facility] [place] [address] 11/10/2024 10:00 AM EST Office [place] [address] Dai Whitman, [facility] 11/21/2024 2:15 PM EST Office [place] [address] Dayanara Grover MD [facility] [place] [address] Pending Results Name Type Priority Associated Diagnoses [...] 4:49 PM EST Debridement, Skin, Sub-Q Tissue (73700) 10/04/2024 3:10 PM EST Status post explant of infected left FRIT MAKER-BK pop bypass graft DEBRIDEMENT SKIN AND SUBCU, [...] CENTER EGFR - External 104.05 [facility] Anion Gap - External 11.6(H) [facility] Sodium - External 141 [facility] Potassium - External 4.3 [facility] Chloride - External 103 [facility] CO2 - External 26.4 [facility] Calcium - External 9.0 [facility] [place] [...] Hernandez MD CHEMISTRY ORDERABLES Performing Organization Address City/[facility]/ZIP Co de Phone Number [address] [phone] * CK (10/16/2024) CK, Total - External 39 [facility] Blood VENOUS BLOOD SPECIMEN / Unknown 10/16/2024 Amaya Hernandez MD CHEMISTRY ORDERABLES [address] [phone] * (ABNORMAL) CBC (with Diff) (10/16/2024) WBC - External 10.99(H) [facility] RBC - External 3.71(L) [facility] Hemoglobin - External 10.8(L) [facility] Hematocrit - External 33.8(L) [facility] MCV - External 91 [facility] MCH - External 29.1 [facility] MCHC - External 32.0 [facility] RDWCV - External 14.2(H) [facility] Platelets - External 512(H) [facility] MPV - External 9.8 [facility] NRBC % - External 0.0 [facility] [...] 10/16/2024 Amaya Hernandez MD HEMATOLOGY ORDERABLE S [place] [id number] [facility] [address] [phone] * POC, GLUCOSE (10/10/2024 4:27 PM EST) [facility] Signature Glucometer, POC 172 65 - 199 mg/dL 10/10/2024 4:27 PM EST [facility] Comment:Supplemental ranges: <140 mg/dL before meals <180 mg/dL all other times of the day. Blood CAPILLARY BLOOD / Unknown 10/10/2024 4:27 PM EST 10/10/2024 4:27 PM EST Hayley oTrres MD POINT OF CARE TEST O RDERABLES Performing Organization Address [facility] Co de Phone Number [facility] [place] [address] * POC, GLUCOSE (10/10/2024 11:10 AM EST) Glucometer, POC 174 65 - 199 mg/dL 10/10/2024 11:11 AM EST [facility] Comment:Supplemental ranges: <140 mg/dL before meals <180 mg/dL all other times of the day. Blood CAPILLARY BLOOD / Unknown 10/10/2024 11:10 AM EST 10/10/2024 11:11 AM EST Hayley Torres MD POINT OF CARE TEST O RDERAHERNANDEZ Performing Organization Address [facility] de Phone Number [facility] [place] [address] * POC, GLUCOSE (10/10/2024 7:46 AM EST) Glucometer, POC 141 65 - 199 mg/dL 10/10/2024 7:46 AM EST [facility] Comment:Supplemental ranges: <140 mg/dL before meals <180 mg/dL all other times of the day. Blood CAPILLARY BLOOD / Unknown 10/10/2024 7:46 AM EST 10/10/2024 7:46 AM EST Hayley Torres MD POINT OF CARE TEST O RDERAHERNANDEZ Performing Organization Address City/[facility] Co de Phone Number [facility] [place] [address] * POC, GLUCOSE (10/10/2024 6:11 AM EST) Glucometer, POC 127 65 - 199 mg/dL 10/10/2024 6:11 AM EST [facility] Comment:Supplemental ranges: <140 mg/dL before meals <180 mg/dL all other times of the day. Blood CAPILLARY BLOOD / Unknown 10/10/2024 6:11 AM EST 10/10/2024 6:11 AM EST Hayley Torres MD POINT OF CARE TEST O RDERABLES [facility] [place] [address] * CK (10/10/2024 12:33 AM EST) Pathologist [facility] Creatine Kinase 32 0 - 200 unit/L 10/10/2024 8:54 AM [facility] Blood VENOUS BLOOD SPECIMEN / Unknown Venipuncture / Unknown 10/10/2024 12:33 AM EST 10/10/2024 12:43 AM EST María Carranza APRN CHEMISTRY ORDER RANDELL Performing Organization Address City/[facility]/ZIP Co de Phone Number [facility] [place] [address] * (ABNORMAL) CBC (with Diff) (10/10/2024 12:33 AM EST) [facility] White Blood Cell 11.57(H) 4.00 - 9.50 x10(3)/mc L 10/10/2024 12:48 AM [facility] Red Blood Cell 3.75(L) 4.58 - 5.54 x10(6)/mc L 10/10/2024 12:48 AM [facility] Hemoglobin 11.1(L) 13.7 - 16.5 [...] Monocyte % 7.0 % 10/10/2024 12:48 AM [facility] Monocyte Absolute 0.81 0.30 - [...] EST Hayley Torres MD HEMATOLOGY ORDERABLE S [facility] [place] [address] * (ABNORMAL) Basic Metabolic Panel (10/10/2024 12:33 [...] - 10.5 mg/dL 10/10/2024 1:12 AM EST [facility] Est Glomerular Filtration Rate - Male 119 mL/min/1. 73 m?? 10/10/2024 1:12 AM EST [facility] [...] AM EST Hayley Torres MD CHEMISTRY ORDERABLES [facility] [place] [address] * Phosphorus (10/10/2024 12:33 AM EST) Phosphorus 3.8 2.5 - 4.5 mg/dL 10/10/2024 1:12 AM EST [facility] Blood VENOUS BLOOD SPECIMEN / Unknown Venipuncture / Unknown 10/10/2024 12:33 AM EST 10/10/2024 12:43 AM EST Hayley Torres MD CHEMISTRY ORDERABLES [facility] [place] [address] * Magnesium (10/10/2024 12:33 AM EST) Magnesium 0.81 0.69 - 1.07 mMol/L 10/10/2024 1:12 AM EST [facility] Blood VENOUS BLOOD SPECIMEN / Unknown Venipuncture / Unknown 10/10/2024 12:33 AM EST 10/10/2024 12:43 AM EST Hayley Torres MD CHEMISTRY ORDERABLES Performing Organization Address City/[facility]/ZIP Co de Phone Number [facility] [place] [address] * POC, GLUCOSE (10/10/2024 12:31 AM EST) Glucometer, POC 119 65 - 199 mg/dL 10/10/2024 12:32 AM EST [facility] Comment:Supplemental ranges: <140 mg/dL before meals <180 mg/dL all other times of the day. Blood CAPILLARY BLOOD / Unknown 10/10/2024 12:31 AM EST 10/10/2024 12:32 AM EST Hayley Torres MD POINT OF CARE TEST O RDERABLES Performing Organization Address City/[facility]/ZIP Co de Phone Number [facility] [place] [address] * POC, GLUCOSE (10/09/2024 8:16 PM EST) Glucometer, POC 104 65 - 199 mg/dL 10/09/2024 8:16 PM EST [facility] Comment:Supplemental ranges: <140 mg/dL before meals <180 mg/dL all other times of the day. Blood CAPILLARY BLOOD / Unknown 10/09/2024 8:16 PM EST 10/09/2024 8:16 PM EST Hayley Torres MD POINT OF CARE TEST O RDERABLES [facility] [place] [address] * POC, GLUCOSE (10/09/2024 3:57 PM EST) Glucometer, POC 120 65 - 199 mg/dL 10/09/2024 3:57 PM EST [facility] Comment:Supplemental ranges: <140 mg/dL before meals <180 mg/dL all other times of the day. Blood CAPILLARY BLOOD / Unknown 10/09/2024 3:57 PM EST 10/09/2024 3:57 PM EST Hayley Torres MD POINT OF CARE TEST O RDERAHERNANDEZ [facility] [place] [address] * Place PICC Line: Contact Vascular Access Page [phone] Extremity to exclude: No restrictions; Is PICC [...] to the planned procedure. Hand Hygiene: The pan dumper did perform hand hygiene prior to line insertion. Catheter type: PICC Lot number: [id number] Procedure Technique: Skin was prepped with chlorhexidine. [...] Guidance (IV Team) (10/09/2024 1:55 PM EST) [employer] WORKSTATION ID [id number] [facility] Anatomical Region Laterality Modality N/A Radio Fluoroscop [...] have questions please contact the health care director that requested your imaging first. ? Electronically signed by: Terell Salvador MD, [facility] ([phone]), at 10/09/2024 3:30 PM Narrative 10/09/2024 3:30 [...] who have questions please contactthe health care director that requested your imaging first. María Carranza APRN [facility] * POC, GLUCOSE (10/09/2024 11:40 AM EST) [facility] Glucometer, POC 180 65 - 199 mg/dL 10/09/2024 11:40 AM EST [facility] Comment:Supplemental ranges: <140 mg/dL before meals <180 mg/dL all other times of the day. Blood CAPILLARY BLOOD / Unknown 10/09/2024 11:40 AM EST 10/09/2024 11:41 AM EST Hayley Torres MD POINT OF CARE TEST O GILDA Performing Organization Address [facility] de Phone Number [facility] [place] [address] * (ABNORMAL) POC, GLUCOSE (10/09/2024 7:35 AM EST) Glucometer, POC 215(H) 65 - 199 mg/dL 10/09/2024 7:36 AM EST [facility] Comment:Supplemental ranges: <140 mg/dL before meals <180 mg/dL all other times of the day. Blood CAPILLARY BLOOD / Unknown 10/09/2024 7:35 AM EST 10/09/2024 7:36 AM EST Hayley Torres MD POINT OF CARE TEST O GILDA Performing Organization Address [facility] de Phone Number [facility] [place] [address] * POC, GLUCOSE (10/09/2024 4:26 AM EST) Glucometer, POC 175 65 - 199 mg/dL 10/09/2024 4:26 AM EST [facility] Comment:Supplemental ranges: <140 mg/dL before meals <180 mg/dL all other times of the day. Blood CAPILLARY BLOOD / Unknown 10/09/2024 4:26 AM EST 10/09/2024 4:26 AM EST Hayley Torres MD POINT OF CARE TEST O GILDA Performing Organization Address [facility] Co de Phone Number [facility] [place] [address] * (ABNORMAL) CBC (with Diff) (10/09/2024 12:45 AM EST) White Blood Cell 11.27(H) 4.00 - 9.50 x10(3)/mc L 10/09/2024 1:31 AM EST [facility] Red Blood Cell 3.74(L) [...] EST Hayley Torres MD HEMATOLOGY ORDERABLE S [facility] [place] [address] * (ABNORMAL) Basic Metabolic Panel (10/09/2024 12:45 AM EST) Glucose 135 65 - 199 mg/dL 10/09/2024 1:54 AM [facility] Comment:Glucose [...] AM EST Hayley Torres MD CHEMISTRY ORDERABLES [facility] [place] [address] * Phosphorus (10/09/2024 12:45 AM EST) Phosphorus 3.9 2.5 - 4.5 mg/dL 10/09/2024 1:54 AM EST [facility] Blood VENOUS BLOOD SPECIMEN / Unknown Venipuncture / Unknown 10/09/2024 12:45 AM EST 10/09/2024 1:27 AM EST Hayley Torres MD CHEMISTRY ORDERABLES Performing Organization Address City/[facility]/ZIP Co de Phone Number [facility] [place] [address] * Magnesium (10/09/2024 12:45 AM EST) [facility] Magnesium 0.80 0.69 - 1.07 mMol/L 10/09/2024 1:54 AM EST [facility] Blood VENOUS BLOOD SPECIMEN / Unknown Venipuncture / Unknown 10/09/2024 12:45 AM EST 10/09/2024 1:27 AM EST Hayley Torres MD CHEMISTRY ORDERABLES Performing Organization Address [facility]/ZIP Co de Phone Number [facility] [place] [address] * POC, GLUCOSE (10/09/2024 12:11 AM EST) [facility] Glucometer, POC 157 65 - 199 mg/dL 10/09/2024 12:11 AM EST [facility] Comment:Supplemental ranges: <140 mg/dL before meals <180 mg/dL all other times of the day. Blood CAPILLARY BLOOD / Unknown 10/09/2024 12:11 AM EST 10/09/2024 12:11 AM EST Hayley Torres MD POINT OF CARE TEST O RDERABLES Performing Organization Address City/[facility]/ZIP Co de Phone Number [facility] [place] [address] * POC, GLUCOSE (10/08/2024 7:25 PM EST) Glucometer, POC 157 65 - 199 mg/dL 10/08/2024 7:25 PM EST [facility] Comment:Supplemental ranges: <140 mg/dL before meals <180 mg/dL all other times of the day. Blood CAPILLARY BLOOD / Unknown 10/08/2024 7:25 PM EST 10/08/2024 7:25 PM EST Hayley Torres MD POINT OF CARE TEST O GILDA Performing Organization Address City/State/[facility] Co de Phone Number [facility] [place] [address] * POC, GLUCOSE (10/08/2024 5:54 PM EST) Glucometer, POC 198 65 - 199 mg/dL 10/08/2024 5:54 PM EST [facility] Comment:Supplemental ranges: <140 mg/dL before meals <180 mg/dL all other times of the day. Blood CAPILLARY BLOOD / Unknown 10/08/2024 5:54 PM EST 10/08/2024 5:54 PM EST Hayley Torres MD POINT OF CARE TEST O GILDA Performing Organization Address [facility] Co de Phone Number [facility] [place] [address] * (ABNORMAL) POC, GLUCOSE (10/08/2024 4:08 PM EST) Glucometer, POC 281(H) 65 - 199 mg/dL 10/08/2024 4:08 PM EST [facility] Comment:Supplemental ranges: <140 mg/dL before meals <180 mg/dL all other times of the day. Blood CAPILLARY BLOOD / Unknown 10/08/2024 4:08 PM EST 10/08/2024 4:09 PM EST Hayley Torres MD POINT OF CARE TEST Stephanie VO [facility] [place] [address] * POC, GLUCOSE (10/08/2024 12:44 PM EST) Glucometer, POC 146 65 - 199 mg/dL 10/08/2024 12:44 PM EST [facility] Comment:Supplemental ranges: <140 mg/dL before meals <180 mg/dL all other times of the day. Blood CAPILLARY BLOOD / Unknown 10/08/2024 12:44 PM EST 10/08/2024 12:44 PM EST Hayley Torres MD POINT OF CARE TEST O GILDA Performing Organization Address City/[facility]/ZIP Co de Phone Number [facility] [place] [address] * POC, GLUCOSE (10/08/2024 8:30 AM EST) Glucometer, POC 172 65 - 199 mg/dL 10/08/2024 8:30 AM EST [facility] Comment:Supplemental ranges: <140 mg/dL before meals <180 mg/dL all other times of the day. Blood CAPILLARY BLOOD / Unknown 10/08/2024 8:30 AM EST 10/08/2024 8:30 AM EST Hayley Torres MD POINT OF CARE TEST O GILDA Performing Organization Address City/[facility]/ZIP Co de Phone Number [facility] [place] [address] * Vancomycin Level, Random (10/08/2024 5:59 AM EST) Vancomycin, Random 6.8 mg/L 2023 7:58 AM EST [facility] Comment:This level is for de termination of the patient's vancomycin osnt-mgklo-qxo-curve (AUC) value. Contact the inpatient pharmacy for interpretation. Blood VENOUS BLOOD SPECIMEN / Unknown Venipuncture / Unknown 10/08/2024 5:59 AM EST 10/08/2024 7:29 AM EST Hayley Torres MD CHEMISTRY ORDERABLES Performing Organization Address City/[facility]/ZIP Co de Phone Number [facility] [place] [address] * POC, GLUCOSE (10/08/2024 4:02 AM EST) Pathologist [facility] Glucometer, POC 163 65 - 199 mg/dL 10/08/2024 4:02 AM [facility] Comment:Supplemental ranges: <140 mg/dL before meals <180 mg/dL all other times of the day. Blood CAPILLARY BLOOD / Unknown 10/08/2024 4:02 AM EST 10/08/2024 4:02 AM EST Hayley Torres MD POINT OF CARE TEST O RDERABLES Performing Organization Address [facility]/ZIP Co de Phone Number [facility] [place] [address] * (ABNORMAL) CBC (with Diff) (10/08/2024 12:08 AM EST) [facility] White Blood Cell 10.35(H) 4.00 - 9.50 x10(3)/mc L 10/08/2024 12:29 AM [facility] Red Blood Cell 3.53(L) 4.58 - 5.54 x10(6)/mc L 10/08/2024 12:29 AM [facility] Hemoglobin 10.2(L) 13.7 - 16.5 [...] MD HEMATOLOGY ORDERABLE S Performing Organization Address City/State/[facility] Co de Phone Number [facility] [place] [address] * (ABNORMAL) Basic Metabolic Panel (10/08/2024 12:08 [...] 5 - 15 mMol/L 10/08/2024 12:50 AM EST [facility] Calcium 9.2 8.5 - 10.5 mg/dL 10/08/2024 12:50 AM EST [facility] Est Glomerular Filtration Rate - Male 118 mL/min/1. 73 m?? 10/08/2024 12:50 AM EST [facility] [...] AM EST Hayley Torres MD CHEMISTRY ORDERABLES [facility] [place] [address] * Phosphorus (10/08/2024 12:08 AM EST) Phosphorus 3.4 2.5 - 4.5 mg/dL 10/08/2024 12:50 AM EST [facility] Blood VENOUS BLOOD SPECIMEN / Unknown Venipuncture / Unknown 10/08/2024 12:08 AM EST 10/08/2024 12:23 AM EST Hayley Torres MD CHEMISTRY ORDERABLES [facility] [place] [address] * Magnesium (10/08/2024 12:08 AM EST) Magnesium 0.85 0.69 - 1.07 mMol/L 10/08/2024 12:50 AM EST [facility] Blood VENOUS BLOOD SPECIMEN / Unknown Venipuncture / Unknown 10/08/2024 12:08 AM EST 10/08/2024 12:23 AM EST Hayley Torres MD CHEMISTRY ORDERABLES Performing Organization Address City/[facility]/ZIP Co de Phone Number [facility] [place] [address] * CK (10/08/2024 12:08 AM EST) Creatine Kinase 24 0 - 200 unit/L 10/08/2024 12:50 AM EST [facility] Blood VENOUS BLOOD SPECIMEN / Unknown Venipuncture / Unknown 10/08/2024 12:08 AM EST 10/08/2024 12:23 AM EST Hayley Torres MD CHEMISTRY ORDERABLES Performing Organization Address [facility] Co de Phone Number [facility] [place] [address] * POC, GLUCOSE (10/08/2024 12:05 AM EST) Glucometer, POC 100 65 - 199 mg/dL 10/08/2024 12:05 AM EST [facility] Comment:Supplemental ranges: <140 mg/dL before meals <180 mg/dL all other times of the day. Blood CAPILLARY BLOOD / Unknown 10/08/2024 12:05 AM EST 10/08/2024 12:05 AM EST Hayley Torres MD POINT OF CARE TEST O RDERABLES Performing Organization Address City/[facility] Co de Phone Number [facility] [place] [address] * POC, GLUCOSE (10/07/2024 8:29 PM EST) Glucometer, POC 107 65 - 199 mg/dL 10/07/2024 8:30 PM EST [facility] Comment:Supplemental ranges: <140 mg/dL before meals <180 mg/dL all other times of the day. Blood CAPILLARY BLOOD / Unknown 10/07/2024 8:29 PM EST 10/07/2024 8:30 PM EST Hayley Torres MD POINT OF CARE TEST O RDERAHERNANDEZ Performing Organization Address City/[facility]/ZIP Co de Phone Number [facility] [place] [address] * POC, GLUCOSE (10/07/2024 4:33 PM EST) Glucometer, POC 129 65 - 199 mg/dL 10/07/2024 4:33 PM EST [facility] Comment:Supplemental ranges: <140 mg/dL before meals <180 mg/dL all other times of the day. Blood CAPILLARY BLOOD / Unknown 10/07/2024 4:33 PM EST 10/07/2024 4:34 PM EST Hayley Torres MD POINT OF CARE TEST O GILDA Performing Organization Address [facility] Co de Phone Number [facility] [place] [address] * (ABNORMAL) POC, GLUCOSE (10/07/2024 10:58 AM EST) Glucometer, POC 221(H) 65 - 199 mg/dL 10/07/2024 10:59 AM EST [facility] Comment:Supplemental ranges: <140 mg/dL before meals <180 mg/dL all other times of the day. Blood CAPILLARY BLOOD / Unknown 10/07/2024 10:58 AM EST 10/07/2024 10:59 AM EST Hayley Torres MD POINT OF CARE TEST O GILDA Performing Organization Address City/[facility]/ZIP Co de Phone Number [facility] [place] [address] * (ABNORMAL) POC, GLUCOSE (10/07/2024 7:42 AM EST) Glucometer, POC 201(H) 65 - 199 mg/dL 10/07/2024 7:42 AM EST [facility] Comment:Supplemental ranges: <140 mg/dL before meals <180 mg/dL all other times of the day. Blood CAPILLARY BLOOD / Unknown 10/07/2024 7:42 AM EST 10/07/2024 7:43 AM EST Hayley Torres MD POINT OF CARE TEST O GILDA Performing Organization Address [facility] Co de Phone Number [facility] [place] [address] * POC, GLUCOSE (10/07/2024 3:58 AM EST) Glucometer, POC 150 65 - 199 mg/dL 10/07/2024 3:58 AM EST [facility] Comment:Supplemental ranges: <140 mg/dL before meals <180 mg/dL all other times of the day. Blood CAPILLARY BLOOD / Unknown 10/07/2024 3:58 AM EST 10/07/2024 3:58 AM EST Hayley Torres MD POINT OF CARE TEST O GILDA Performing Organization Address [facility]/ZIP Co de Phone Number [facility] [place] [address] * (ABNORMAL) CBC (with Diff) (10/07/2024 12:06 AM EST) Pathologist [facility] White Blood Cell 11.27(H) 4.00 - 9.50 x10(3)/mc L 10/07/2024 12:19 AM EST [facility] Red Blood Cell 3.47(L) 4.58 - 5.54 x10(6)/mc L 10/07/2024 12:19 AM EST [facility] Hemoglobin 10.1(L) 13.7 - 16.5 g/dL 10/07/2024 12:19 AM EST [facility] Hematocrit 30.9(L) 40.5 - [...] EST Hayley Torres MD HEMATOLOGY ORDERABLE S [facility] [place] [address] * (ABNORMAL) Basic Metabolic Panel (10/07/2024 12:06 [...] AM EST Hayley Torres MD CHEMISTRY ORDERABLES [facility] [place] [address] * Phosphorus (10/07/2024 12:06 AM EST) Phosphorus 4.2 2.5 - 4.5 mg/dL 10/07/2024 12:40 AM [facility] Blood VENOUS BLOOD SPECIMEN / Unknown Venipuncture / Unknown 10/07/2024 12:06 AM EST 10/07/2024 12:11 AM EST Hayley Torres MD CHEMISTRY ORDERABLES Performing Organization Address [facility] Co de Phone Number [facility] [place] [address] * Magnesium (10/07/2024 12:06 AM EST) Magnesium 0.85 0.69 - 1.07 mMol/L 10/07/2024 12:40 AM EST [facility] Blood VENOUS BLOOD SPECIMEN / Unknown Venipuncture / Unknown 10/07/2024 12:06 AM EST 10/07/2024 12:11 AM EST Hayley Torres MD CHEMISTRY ORDERABLES Performing Organization Address [facility] Co de Phone Number [facility] [place] [address] * POC, GLUCOSE (10/07/2024 12:04 AM EST) Glucometer, POC 149 65 - 199 mg/dL 10/07/2024 12:04 AM EST [facility] Comment:Supplemental ranges: <140 mg/dL before meals <180 mg/dL all other times of the day. Blood CAPILLARY BLOOD / Unknown 10/07/2024 12:04 AM EST 10/07/2024 12:05 AM EST Hayley Torres MD POINT OF CARE TEST O RDERABLES Performing Organization Address City/[facility]/ZIP Co de Phone Number [facility] [place] [address] * POC, GLUCOSE (10/06/2024 7:24 PM EST) Glucometer, POC 151 65 - 199 mg/dL 10/06/2024 7:24 PM EST [facility] Comment:Supplemental ranges: <140 mg/dL before meals <180 mg/dL all other times of the day. Blood CAPILLARY BLOOD / Unknown 10/06/2024 7:24 PM EST 10/06/2024 7:24 PM EST Hayley Torres MD POINT OF CARE TEST O GILDA Performing Organization Address [facility] Co de Phone Number [facility] [place] [address] * POC, GLUCOSE (10/06/2024 5:32 PM EST) Glucometer, POC 126 65 - 199 mg/dL 10/06/2024 5:32 PM EST [facility] Comment:Supplemental ranges: <140 mg/dL before meals <180 mg/dL all other times of the day. Blood CAPILLARY BLOOD / Unknown 10/06/2024 5:32 PM EST 10/06/2024 5:32 PM EST Hayley Torres MD POINT OF CARE TEST O GILDA Performing Organization Address [facility] de Phone Number [facility] [place] [address] * XR PICC Placement Over 5 Years with Imaging Guidance (IV Team) (10/06/2024 3:04 PM EST) WORKSTATION ID [id number] RAD Anatomical Region Laterality Modality N/A Radio [...] have questions please contact the health care director that requested your imaging first. ? Electronically signed by: Charles Hamilton MD, [facility] ??([phone]), at 10/06/2024 3:43 PM Narrative 10/06/2024 3:43 [...] who have questions please contactthe health care director that requested your imaging first. Electronically signed by: Charles Hamilton MD, [facility]([phone]), at 10/06/2024 3:43 PM Hayley Torres MD IMG FLUORO ORDERABLE S * Place PICC Line: Contact Vascular Access Page [phone] Extremity to exclude: No restrictions; Is PICC procedure required PRIOR to patients discharge? Yes (10/06/2024 2:57 PM EST) Narrative Dominique Holman, RN - 10/06/2024 2:57 PM EST Dominique [...] to the planned procedure. Hand Hygiene: The pan dumper did perform hand hygiene prior to line insertion. Catheter type: PICC Lot number: [id number] Procedure Technique: Skin was prepped with chlorhexidine. [...] - 199 mg/dL 10/06/2024 12:12 PM EST [facility] Comment:Supplemental ranges: <140 mg/dL before meals <180 mg/dL all other times of the day. Blood CAPILLARY BLOOD / Unknown 10/06/2024 12:12 PM EST 10/06/2024 12:12 PM EST Hayley Torres MD POINT OF CARE TEST O GILDA [facility] [place] [address] * (ABNORMAL) POC, GLUCOSE (10/06/2024 7:34 AM EST) Glucometer, POC 209(H) 65 - 199 mg/dL 10/06/2024 7:34 AM EST [facility] Comment:Supplemental ranges: <140 mg/dL before meals <180 mg/dL all other times of the day. Blood CAPILLARY BLOOD / Unknown 10/06/2024 7:34 AM EST 10/06/2024 7:34 AM EST Hayley Torres MD POINT OF CARE TEST O GILDA Performing Organization Address City/[facility]/ZIP Co de Phone Number [facility] [place] [address] * POC, GLUCOSE (10/06/2024 3:29 AM EST) Glucometer, POC 151 65 - 199 mg/dL 10/06/2024 3:29 AM EST [facility] Comment:Supplemental ranges: <140 mg/dL before meals <180 mg/dL all other times of the day. Blood CAPILLARY BLOOD / Unknown 10/06/2024 3:29 AM EST 10/06/2024 3:29 AM EST Hayley Torres MD POINT OF CARE TEST O GILDA [facility] [place] [address] * Vancomycin Level, Random (10/06/2024 12:03 AM EST) Pathologist [facility] Vancomycin, Random 20.5 mg/L 2023 9:00 AM [facility] Comment:This level is for de termination of the patient's vancomycin biey-oqgax-dbq-curve (AUC) value. Contact the inpatient pharmacy for interpretation. Blood VENOUS BLOOD SPECIMEN / Unknown Venipuncture / Unknown 10/06/2024 12:03 AM EST 10/06/2024 12:15 AM EST Hayley Torres MD CHEMISTRY ORDERABLES [facility] [place] [address] * (ABNORMAL) CBC (with Diff) (10/06/2024 12:03 AM EST) Pathologist [facility] White Blood Cell 12.26(H) 4.00 - 9.50 x10(3)/mc L 10/06/2024 12:19 AM [facility] Red Blood Cell 3.49(L) 4.58 - 5.54 x10(6)/mc L 10/06/2024 12:19 AM [facility] Hemoglobin 10.1(L) 13.7 - 16.5 g/dL 10/06/2024 12:19 AM [facility] EST Hayley Torres MD HEMATOLOGY ORDERABLE S [facility] [place] [address] * Basic Metabolic Panel (10/06/2024 12:03 AM [...] 8.5 - 10.5 mg/dL 10/06/2024 12:44 AM EST [facility] Est Glomerular Filtration Rate - Male 106 mL/min/1. 73 m?? 10/06/2024 12:44 AM EST [facility] [...] AM EST Hayley Torres MD CHEMISTRY ORDERABLES [facility] [place] [address] * Phosphorus (10/06/2024 12:03 AM EST) Phosphorus 4.3 2.5 - 4.5 mg/dL 10/06/2024 12:44 AM EST [facility] Blood VENOUS BLOOD SPECIMEN / Unknown Venipuncture / Unknown 10/06/2024 12:03 AM EST 10/06/2024 12:15 AM EST Hayley Torres MD CHEMISTRY ORDERABLES [facility] [place] [address] * Magnesium (10/06/2024 12:03 AM EST) Magnesium 0.83 0.69 - 1.07 mMol/L 10/06/2024 12:44 AM EST [facility] Blood VENOUS BLOOD SPECIMEN / Unknown Venipuncture / Unknown 10/06/2024 12:03 AM EST 10/06/2024 12:15 AM EST Hayley Torres MD CHEMISTRY ORDERABLES Performing Organization Address [facility] Co de Phone Number [facility] [place] [address] * POC, GLUCOSE (10/06/2024 12:02 AM EST) Glucometer, POC 98 65 - 199 mg/dL 10/06/2024 12:02 AM EST [facility] Comment:Supplemental ranges: <140 mg/dL before meals <180 mg/dL all other times of the day. Blood CAPILLARY BLOOD / Unknown 10/06/2024 12:02 AM EST 10/06/2024 12:02 AM EST Hayley Torres MD POINT OF CARE TEST O RDERABLES Performing Organization Address [facility] Co de Phone Number [facility] [place] [address] * POC, GLUCOSE (10/05/2024 7:22 PM EST) Glucometer, POC 186 65 - 199 mg/dL 10/05/2024 7:23 PM EST [facility] Comment:Supplemental ranges: <140 mg/dL before meals <180 mg/dL all other times of the day. Blood CAPILLARY BLOOD / Unknown 10/05/2024 7:22 PM EST 10/05/2024 7:23 PM EST Hayley Torres MD POINT OF CARE TEST O RDERAHERNANDEZ Performing Organization Address City/[facility] Co de Phone Number [facility] [place] [address] * POC, GLUCOSE (10/05/2024 5:35 PM EST) Glucometer, POC 177 65 - 199 mg/dL 10/05/2024 5:35 PM EST [facility] Comment:Supplemental ranges: <140 mg/dL before meals <180 mg/dL all other times of the day. Blood CAPILLARY BLOOD / Unknown 10/05/2024 5:35 PM EST 10/05/2024 5:35 PM EST Hayley Torres MD POINT OF CARE TEST O GILDA Performing Organization Address City/[facility]/ZIP Co de Phone Number [facility] [place] [address] * POC, GLUCOSE (10/05/2024 3:57 PM EST) Glucometer, POC 141 65 - 199 mg/dL 10/05/2024 3:57 PM EST [facility] Comment:Supplemental ranges: <140 mg/dL before meals <180 mg/dL all other times of the day. Blood CAPILLARY BLOOD / Unknown 10/05/2024 3:57 PM EST 10/05/2024 3:57 PM EST Hayley Torres MD POINT OF CARE TEST O GILDA Performing Organization Address [facility] Co de Phone Number [facility] [place] [address] * POC, GLUCOSE (10/05/2024 11:50 AM EST) Glucometer, POC 134 65 - 199 mg/dL 10/05/2024 11:50 AM EST [facility] Comment:Supplemental ranges: <140 mg/dL before meals <180 mg/dL all other times of the day. Blood CAPILLARY BLOOD / Unknown 10/05/2024 11:50 AM EST 10/05/2024 11:50 AM EST Hayley Torres MD POINT OF CARE TEST O GILDA Performing Organization Address City/[facility]/ZIP Co de Phone Number [facility] [place] [address] * POC, GLUCOSE (10/05/2024 7:51 AM EST) Glucometer, POC 114 65 - 199 mg/dL 10/05/2024 7:51 AM EST [facility] Comment:Supplemental ranges: <140 mg/dL before meals <180 mg/dL all other times of the day. Blood CAPILLARY BLOOD / Unknown 10/05/2024 7:51 AM EST 10/05/2024 7:51 AM EST Hayley Torres MD POINT OF CARE TEST O GILDA Performing Organization Address City/[facility] Co de Phone Number [facility] [place] [address] * POC, GLUCOSE (10/05/2024 4:18 AM EST) Glucometer, POC 147 65 - 199 mg/dL 10/05/2024 4:18 AM EST [facility] Comment:Supplemental ranges: <140 mg/dL before meals <180 mg/dL all other times of the day. Blood CAPILLARY BLOOD / Unknown 10/05/2024 4:18 AM EST 10/05/2024 4:18 AM EST Hayley Torres MD POINT OF CARE TEST Stephanie VO Performing Organization Address [facility] Co de Phone Number [facility] [place] [address] * (ABNORMAL) CBC (with Diff) (10/04/2024 11:50 PM EST) White Blood Cell 12.73(H) 4.00 - 9.50 x10(3)/mc L 10/05/2024 12:10 AM EST [facility] Red Blood Cell 3.45(L) 4.58 - 5.54 x10(6)/mc L 10/05/2024 12:10 AM EST [facility] Hemoglobin 9.8(L) 13.7 - [...] - 6.10 x10(3)/mc L 10/05/2024 12:10 AM [facility] Lymph % 21.3 % 10/05/2024 12:10 AM [facility] Lymph Absolute 2.71 0.90 - 3.20 x10(3)/mc L 10/05/2024 12:10 AM [facility] Monocyte % 5.5 % 10/05/2024 [...] - 0.04 x10(3)/mc L 10/05/2024 12:10 AM [facility] Blood VENOUS BLOOD SPECIMEN / Unknown Venipuncture / Unknown 10/04/2024 11:50 PM EST 10/05/2024 12:03 AM EST Hayley Torres MD HEMATOLOGY ORDERABLE S [facility] [place] [address] * (ABNORMAL) Basic Metabolic Panel (10/04/2024 11:50 [...] AM EST Hayley Torres MD CHEMISTRY ORDERABLES [facility] [place] [address] * Phosphorus (10/04/2024 11:50 PM EST) Phosphorus 4.2 2.5 - 4.5 mg/dL 10/05/2024 12:35 AM [facility] Blood VENOUS BLOOD SPECIMEN / Unknown Venipuncture / Unknown 10/04/2024 11:50 PM EST 10/05/2024 12:03 AM EST Hayley Torres MD CHEMISTRY ORDERABLES Performing Organization Address [facility] Co de Phone Number [facility] [place] [address] * Magnesium (10/04/2024 11:50 PM EST) Magnesium 0.89 0.69 - 1.07 mMol/L 10/05/2024 12:35 AM EST [facility] Blood VENOUS BLOOD SPECIMEN / Unknown Venipuncture / Unknown 10/04/2024 11:50 PM EST 10/05/2024 12:03 AM EST Hayley Torres MD CHEMISTRY ORDERABLES Performing Organization Address [facility] Co de Phone Number [facility] [place] [address] * POC, GLUCOSE (10/04/2024 11:36 PM EST) Glucometer, POC 121 65 - 199 mg/dL 10/04/2024 11:36 PM EST [facility] Comment:Supplemental ranges: <140 mg/dL before meals <180 mg/dL all other times of the day. Blood CAPILLARY BLOOD / Unknown 10/04/2024 11:36 PM EST 10/04/2024 11:36 PM EST Hayley Torres MD POINT OF CARE TEST O RDERABLES Performing Organization Address City/[facility] Co de Phone Number [facility] [place] [address] * POC, GLUCOSE (10/04/2024 7:32 PM EST) Glucometer, POC 163 65 - 199 mg/dL 10/04/2024 7:32 PM EST [facility] Comment:Supplemental ranges: <140 mg/dL before meals <180 mg/dL all other times of the day. Blood CAPILLARY BLOOD / Unknown 10/04/2024 7:32 PM EST 10/04/2024 7:32 PM EST Hayley Torres MD POINT OF CARE TEST O RDERABLES Performing Organization Address City/[facility]/ZIP Co de Phone Number [facility] [place] [address] * EKG 12 Lead (10/04/2024 7:14 PM EST) Ventricular rate 81 BPM MUSE SYSTEM Atrial Rate 81 BPM MUSE SYSTEM P-R Interval 174 ms MUSE SYSTEM QRS Duration 112 ms MUSE SYSTEM Q-T Interval 422 ms MUSE SYSTEM QTC Calculated (Bezet) 490 ms MUSE SYSTEM Calculated P [place] 34 degrees MUSE SYSTEM Calculated R [place] 11 degrees MUSE SYSTEM Calculated T [place] 59 degrees MUSE SYSTEM INTERPRETATION Normal sinus rhythm Cannot rule out Inferior infarct , age undetermined Nonspecific T wave abnormality Borderline ECG When compared with ECG of 29-MAY-2024 14:51, Nonspecific T wave abnormality now evident in Lateral leads Confirmed by MD Robert, Deandre Guadarrama ([id number]) on 10/05/2024 3:35:42 PM MUSE SYSTEM 10/04/2024 7:14 PM EST 10/05/2024 3:35 PM EST Hayley Torres MD ECG ORDERABLES Performing Organization Address [facility]/ZIP Co de Phone Number MUSE SYSTEM * POC, GLUCOSE (10/04/2024 5:07 PM EST) Glucometer, POC 95 65 - 199 mg/dL 10/04/2024 5:07 PM EST [facility] Comment:Supplemental ranges: <140 mg/dL before meals <180 mg/dL all other times of the day. Blood CAPILLARY BLOOD / Unknown 10/04/2024 5:07 PM EST 10/04/2024 5:07 PM EST Hayley Torres MD POINT OF CARE TEST O RDERABLES Performing Organization Address City/[facility]/ZIP Co de Phone Number [facility] [place] [address] * POC, GLUCOSE (10/04/2024 4:49 PM EST) Glucometer, POC 70 65 - 199 mg/dL 10/04/2024 4:50 PM EST [facility] Comment:Supplemental ranges: <140 mg/dL before meals <180 mg/dL all other times of the day. Blood CAPILLARY BLOOD / Unknown 10/04/2024 4:49 PM EST 10/04/2024 4:50 PM EST Hayley Torres MD POINT OF CARE TEST O GILDA Performing Organization Address City/[facility] Co de Phone Number [facility] [place] [address] * POC, GLUCOSE (10/04/2024 11:49 AM EST) Glucometer, POC 93 65 - 199 mg/dL 10/04/2024 11:49 AM EST [facility] Comment:Supplemental ranges: <140 mg/dL before meals <180 mg/dL all other times of the day. Blood CAPILLARY BLOOD / Unknown 10/04/2024 11:49 AM EST 10/04/2024 11:49 AM EST Hayley Torres MD POINT OF CARE TEST O GILDA Performing Organization Address [facility] de Phone Number [facility] [place] [address] * Vancomycin, trough (10/04/2024 7:53 AM EST) Pathologist [facility] Vancomycin, Trough 19.8 10.0 - 20.0 mg/L 10/04/2024 9:16 AM EST [facility] Comment: Varies according to infection source. Blood VENOUS BLOOD SPECIMEN / Unknown Venipuncture / Unknown 10/04/2024 7:53 AM EST 10/04/2024 8:11 AM EST Hayley Torres MD CHEMISTRY ORDERABLES Performing Organization Address City/[facility] Co de Phone Number [facility] [place] [address] * POC, GLUCOSE (10/04/2024 7:51 AM EST) Glucometer, POC 105 65 - 199 mg/dL 10/04/2024 7:52 AM EST [facility] Comment:Supplemental ranges: <140 mg/dL before meals <180 mg/dL all other times of the day. Blood CAPILLARY BLOOD / Unknown 10/04/2024 7:51 AM EST 10/04/2024 7:52 AM EST Hayley Torres MD POINT OF CARE TEST O GILDA Performing Organization Address City/[facility]/ZIP Co de Phone Number [facility] [place] [address] * POC, GLUCOSE (10/04/2024 3:53 AM EST) Glucometer, POC 90 65 - 199 mg/dL 10/04/2024 3:53 AM EST [facility] Comment:Supplemental ranges: <140 mg/dL before meals <180 mg/dL all other times of the day. Blood CAPILLARY BLOOD / Unknown 10/04/2024 3:53 AM EST 10/04/2024 3:53 AM EST Hayley Torres MD POINT OF CARE TEST O GILDA Performing Organization Address City/[facility]/ZIP Co de Phone Number [facility] [place] [address] * (ABNORMAL) CBC (with Diff) (10/04/2024 12:08 AM EST) [facility] White Blood Cell 12.58(H) 4.00 - 9.50 x10(3)/mc L 10/04/2024 12:51 AM EST [facility] Red Blood Cell 3.28(L) 4.58 - 5.54 x10(6)/mc L 10/04/2024 12:51 AM EST [facility] Hemoglobin 9.4(L) 13.7 - 16.5 g/dL 10/04/2024 12:51 AM EST [facility] Hematocrit 28.8(L) 40.5 - [...] Neutrophil % 60.3 % 10/04/2024 12:51 AM [facility] - 0.40 x10(3)/mc L 10/04/2024 12:51 AM [facility] Basophil % 0.6 % 10/04/2024 12:51 AM [facility] Baso Absolute 0.08 0.00 - 0.10 x10(3)/mc L 10/04/2024 12:51 AM [facility] Immature Gran % 4.8 % 12:51 AM [facility] Immature Gran Absolute 0.61(H) 0.00 - 0.04 x10(3)/mc L 10/04/2024 12:51 AM [facility] Blood VENOUS BLOOD SPECIMEN / Unknown Venipuncture / Unknown 10/04/2024 12:08 AM EST 10/04/2024 12:15 AM EST Hayley Torres MD HEMATOLOGY ORDERABLE S [facility] [place] [address] * (ABNORMAL) Basic Metabolic Panel (10/04/2024 12:08 [...] AM EST Hayley Torres MD CHEMISTRY ORDERABLES [facility] [place] [address] * Phosphorus (10/04/2024 12:08 AM EST) Phosphorus 3.7 2.5 - 4.5 mg/dL 10/04/2024 12:53 AM [facility] Blood VENOUS BLOOD SPECIMEN / Unknown Venipuncture / Unknown 10/04/2024 12:08 AM EST 10/04/2024 12:15 AM EST Hayley Torres MD CHEMISTRY ORDERABLES Performing Organization Address [facility] Co de Phone Number [facility] [place] [address] * Magnesium (10/04/2024 12:08 AM EST) Magnesium 0.89 0.69 - 1.07 mMol/L 10/04/2024 12:53 AM EST [facility] Blood VENOUS BLOOD SPECIMEN / Unknown Venipuncture / Unknown 10/04/2024 12:08 AM EST 10/04/2024 12:15 AM EST Hayley Torres MD CHEMISTRY ORDERABLES Performing Organization Address [facility] Co de Phone Number [facility] [place] [address] * POC, GLUCOSE (10/04/2024 12:01 AM EST) Glucometer, POC 132 65 - 199 mg/dL 10/04/2024 12:02 AM EST [facility] Comment:Supplemental ranges: <140 mg/dL before meals <180 mg/dL all other times of the day. Blood CAPILLARY BLOOD / Unknown 10/04/2024 12:01 AM EST 10/04/2024 12:02 AM EST Hayley Torres MD POINT OF CARE TEST O RDERABLES Performing Organization Address City/[facility]/ZIP Co de Phone Number [facility] [place] [address] * POC, GLUCOSE (10/03/2024 7:56 PM EST) Glucometer, POC 123 65 - 199 mg/dL 10/03/2024 7:56 PM EST [facility] Comment:Supplemental ranges: <140 mg/dL before meals <180 mg/dL all other times of the day. Blood CAPILLARY BLOOD / Unknown 10/03/2024 7:56 PM EST 10/03/2024 7:57 PM EST Hayley Torres MD POINT OF CARE TEST O GILDA Performing Organization Address [facility] Co de Phone Number [facility] [place] [address] * POC, GLUCOSE (10/03/2024 5:29 PM EST) Glucometer, POC 182 65 - 199 mg/dL 10/03/2024 5:30 PM EST [facility] Comment:Supplemental ranges: <140 mg/dL before meals <180 mg/dL all other times of the day. Blood CAPILLARY BLOOD / Unknown 10/03/2024 5:29 PM EST 10/03/2024 5:30 PM EST Hayley Torres MD POINT OF CARE TEST O GILDA Performing Organization Address [facility] Co de Phone Number [facility] [place] [address] * POC, GLUCOSE (10/03/2024 12:54 PM EST) Glucometer, POC 128 65 - 199 mg/dL 10/03/2024 12:54 PM EST [facility] Comment:Supplemental ranges: <140 mg/dL before meals <180 mg/dL all other times of the day. Blood CAPILLARY BLOOD / Unknown 10/03/2024 12:54 PM EST 10/03/2024 12:54 PM EST Hayley Torres MD POINT OF CARE TEST O GILDA Performing Organization Address City/[facility] Co de Phone Number [facility] [place] [address] * POC, GLUCOSE (10/03/2024 7:59 AM EST) Glucometer, POC 115 65 - 199 mg/dL 10/03/2024 7:59 AM EST [facility] Comment:Supplemental ranges: <140 mg/dL before meals <180 mg/dL all other times of the day. Blood CAPILLARY BLOOD / Unknown 10/03/2024 7:59 AM EST 10/03/2024 7:59 AM EST Hayley Torres MD POINT OF CARE TEST O GILDA [facility] [place] [address] * POC, GLUCOSE (10/03/2024 5:32 AM EST) Glucometer, POC 119 65 - 199 mg/dL 10/03/2024 5:32 AM EST [facility] Comment:Supplemental ranges: <140 mg/dL before meals <180 mg/dL all other times of the day. Blood CAPILLARY BLOOD / Unknown 10/03/2024 5:32 AM EST 10/03/2024 5:32 AM EST Hayley Torres MD POINT OF CARE TEST O GILDA Performing Organization Address City/[facility]/ZIP Co de Phone Number [facility] [place] [address] * POC, GLUCOSE (10/03/2024 4:16 AM EST) Glucometer, POC 152 65 - 199 mg/dL 10/03/2024 4:17 AM EST [facility] [facility] Comment:Supplemental ranges: <140 mg/dL before meals <180 mg/dL all other times of the day. Blood CAPILLARY BLOOD / Unknown 10/03/2024 4:16 AM EST 10/03/2024 4:17 AM EST Hayley Torres MD POINT OF CARE TEST O GILDA [facility] [place] [address] * (ABNORMAL) POC, GLUCOSE (10/03/2024 2:02 AM EST) Glucometer, POC 225(H) 65 - 199 mg/dL 10/03/2024 2:02 AM [facility] Comment:Supplemental ranges: <140 mg/dL before meals <180 mg/dL all other times of the day. Blood CAPILLARY BLOOD / Unknown 10/03/2024 2:02 AM EST 10/03/2024 2:02 AM EST Hayley Torres MD POINT OF CARE TEST O RDERABLES [facility] [place] [address] * (ABNORMAL) CBC (with Diff) (10/03/2024 12:27 AM EST) [facility] White Blood Cell 15.33(H) 4.00 - 9.50 x10(3)/mc L 10/03/2024 12:51 AM [facility] Red Blood Cell 3.59(L) 4.58 - 5.54 x10(6)/mc L 10/03/2024 12:51 AM [facility] Hemoglobin 10.4(L) 13.7 - 16.5 g/dL 10/03/2024 12:51 AM [facility] Hematocrit 31.2(L) 40.5 - 48.5 % 10/03/2024 12:51 AM [facility] Mean Cell Volume 86.9 82.9 [...] Eos % 0.5 % 10/03/2024 12:51 AM [facility] Eos Absolute 0.07 0.00 - [...] EST Hayley Torres MD HEMATOLOGY ORDERABLE S [facility] [place] [address] * (ABNORMAL) Basic Metabolic Panel (10/03/2024 12:27 [...] Torres MD CHEMISTRY ORDERABLES Performing Organization Address City/[facility]/ZIP Co de Phone Number [facility] [place] [address] * Phosphorus (10/03/2024 12:27 AM EST) Phosphorus 3.5 2.5 - 4.5 mg/dL 10/03/2024 1:14 AM EST [facility] Blood VENOUS BLOOD SPECIMEN / Unknown Venipuncture / Unknown 10/03/2024 12:27 AM EST 10/03/2024 12:47 AM EST Hayley Torres MD CHEMISTRY ORDERABLES [facility] [place] [address] * Magnesium (10/03/2024 12:27 AM EST) Magnesium 0.83 0.69 - 1.07 mMol/L 10/03/2024 1:14 AM EST [facility] Blood VENOUS BLOOD SPECIMEN / Unknown Venipuncture / Unknown 10/03/2024 12:27 AM EST 10/03/2024 12:47 AM EST Hayley Torres MD CHEMISTRY ORDERABLES Performing Organization Address [facility] Co de Phone Number [facility] [place] [address] * (ABNORMAL) POC, GLUCOSE (10/03/2024 12:13 AM EST) Glucometer, POC 255(H) 65 - 199 mg/dL 10/03/2024 12:14 AM EST [facility] Comment:Supplemental ranges: <140 mg/dL before meals <180 mg/dL all other times of the day. Blood CAPILLARY BLOOD / Unknown 10/03/2024 12:13 AM EST 10/03/2024 12:14 AM EST Hayley Torres MD POINT OF CARE TEST O RDERABLES Performing Organization Address [facility] Co de Phone Number [facility] [place] [address] * POC, GLUCOSE (10/02/2024 8:17 PM EST) Glucometer, POC 177 65 - 199 mg/dL 10/02/2024 8:17 PM EST [facility] Comment:Supplemental ranges: <140 mg/dL before meals <180 mg/dL all other times of the day. Blood CAPILLARY BLOOD / Unknown 10/02/2024 8:17 PM EST 10/02/2024 8:17 PM EST Hayley Torres MD POINT OF CARE TEST O GILDA Performing Organization Address [facility] Co de Phone Number [facility] [place] [address] * POC, GLUCOSE (10/02/2024 6:22 PM EST) Glucometer, POC 172 65 - 199 mg/dL 10/02/2024 6:22 PM EST [facility] Comment:Supplemental ranges: <140 mg/dL before meals <180 mg/dL all other times of the day. Blood CAPILLARY BLOOD / Unknown 10/02/2024 6:22 PM EST 10/02/2024 6:22 PM EST Hayley Torres MD POINT OF CARE TEST O GILDA Performing Organization Address City/[facility]/ZIP Co de Phone Number [facility] [place] [address] * POC, GLUCOSE (10/02/2024 5:01 PM EST) Glucometer, POC 104 65 - 199 mg/dL 10/02/2024 5:01 PM EST [facility] Comment:Supplemental ranges: <140 mg/dL before meals <180 mg/dL all other times of the day. Blood CAPILLARY BLOOD / Unknown 10/02/2024 5:01 PM EST 10/02/2024 5:01 PM EST Hayley Torres MD POINT OF CARE TEST O GILDA Performing Organization Address [facility] Co de Phone Number [facility] [place] [address] * POC, GLUCOSE (10/02/2024 3:05 PM EST) Glucometer, POC 113 65 - 199 mg/dL 10/02/2024 3:06 PM EST [facility] Comment:Supplemental ranges: <140 mg/dL before meals <180 mg/dL all other times of the day. Blood CAPILLARY BLOOD / Unknown 10/02/2024 3:05 PM EST 10/02/2024 3:06 PM EST Hayley Torres MD POINT OF CARE TEST O GILDA [facility] [place] [address] * POC, GLUCOSE (10/02/2024 11:12 AM EST) Glucometer, POC 146 65 - 199 mg/dL 10/02/2024 11:12 AM EST [facility] Comment:Supplemental ranges: <140 mg/dL before meals <180 mg/dL all other times of the day. Blood CAPILLARY BLOOD / Unknown 10/02/2024 11:12 AM EST 10/02/2024 11:12 AM EST Hayley Torres MD POINT OF CARE TEST O GILDA Performing Organization Address City/[facility]/ZIP Co de Phone Number [facility] [place] [address] * POC, GLUCOSE (10/02/2024 8:12 AM EST) Glucometer, POC 131 65 - 199 mg/dL 10/02/2024 8:12 AM EST [facility] Comment:Supplemental ranges: <140 mg/dL before meals <180 mg/dL all other times of the day. Blood CAPILLARY BLOOD / Unknown 10/02/2024 8:12 AM EST 10/02/2024 8:12 AM EST Hayley Torres MD POINT OF CARE TEST O GILDA Performing Organization Address [facility] Co de Phone Number [facility] [place] [address] * POC, GLUCOSE (10/02/2024 4:19 AM EST) Glucometer, POC 131 65 - 199 mg/dL 10/02/2024 4:19 AM EST [facility] Comment:Supplemental ranges: <140 mg/dL before meals <180 mg/dL all other times of the day. Blood CAPILLARY BLOOD / Unknown 10/02/2024 4:19 AM EST 10/02/2024 4:19 AM EST Hayley Torres MD POINT OF CARE TEST O GILDA Performing Organization Address City/[facility]/ZIP Co de Phone Number [facility] [place] [address] * Phosphorus (10/02/2024 12:41 AM EST) Phosphorus 4.1 2.5 - 4.5 mg/dL 10/02/2024 1:21 AM EST [facility] Blood VENOUS BLOOD SPECIMEN / Unknown Venipuncture / Unknown 10/02/2024 12:41 AM EST 10/02/2024 12:45 AM EST Hayley Torres MD CHEMISTRY ORDERABLES Performing Organization Address [facility] Co de Phone Number [facility] [place] [address] * Magnesium (10/02/2024 12:41 AM EST) Pathologist [facility] Magnesium 0.85 0.69 - 1.07 mMol/L 10/02/2024 1:21 AM [facility] Blood VENOUS BLOOD SPECIMEN / Unknown Venipuncture / Unknown 10/02/2024 12:41 AM EST 10/02/2024 12:45 AM EST Hayley Torres MD CHEMISTRY ORDERABLES Performing Organization Address City/[facility] Co de Phone Number [facility] [place] [address] * (ABNORMAL) Basic Metabolic Panel (10/02/2024 12:41 AM EST) Pathologist [facility] Glucose 113 65 - 199 mg/dL 10/02/2024 1:21 AM [facility] Comment:Glucose [...] AM EST Hayley Torres MD CHEMISTRY ORDERABLES [facility] [place] [address] * (ABNORMAL) CBC (with Diff) (10/02/2024 12:41 [...] Monocyte % 5.6 % 10/02/2024 1:04 AM EST [facility] Monocyte Absolute 0.61 0.30 - 0.90 x10(3)/mc L 10/02/2024 1:04 AM [facility] Eos % 1.6 % 10/02/2024 1:04 AM [facility] Eos Absolute 0.18 0.00 - 0.40 x10(3)/mc L 10/02/2024 1:04 AM EST [facility] [...] EST Hayley Torres MD HEMATOLOGY ORDERABLE S [facility] [place] [address] * POC, GLUCOSE (10/02/2024 12:40 AM EST) Glucometer, POC 116 65 - 199 mg/dL 10/02/2024 12:41 AM EST [facility] Comment:Supplemental ranges: <140 mg/dL before meals <180 mg/dL all other times of the day. Blood CAPILLARY BLOOD / Unknown 10/02/2024 12:40 AM EST 10/02/2024 12:41 AM EST Hayley Torres MD POINT OF CARE TEST O RDERABLES [facility] [place] [address] * POC, GLUCOSE (10/01/2024 8:11 PM EST) Glucometer, POC 123 65 - 199 mg/dL 10/01/2024 8:11 PM EST [facility] Comment:Supplemental ranges: <140 mg/dL before meals <180 mg/dL all other times of the day. Blood CAPILLARY BLOOD / Unknown 10/01/2024 8:11 PM EST 10/01/2024 8:11 PM EST Hayley Torres MD POINT OF CARE TEST O GILDA Performing Organization Address City/[facility]/ZIP Co de Phone Number [facility] [place] [address] * POC, GLUCOSE (10/01/2024 6:00 PM EST) Glucometer, POC 112 65 - 199 mg/dL 10/01/2024 6:00 PM EST [facility] Comment:Supplemental ranges: <140 mg/dL before meals <180 mg/dL all other times of the day. Blood CAPILLARY BLOOD / Unknown 10/01/2024 6:00 PM EST 10/01/2024 6:00 PM EST Hayley Torres MD POINT OF CARE TEST O GILDA Performing Organization Address City/[facility]/ZIP Co de Phone Number [facility] [place] [address] * POC, GLUCOSE (10/01/2024 3:53 PM EST) Glucometer, POC 97 65 - 199 mg/dL 10/01/2024 3:53 PM EST [facility] Comment:Supplemental ranges: <140 mg/dL before meals <180 mg/dL all other times of the day. Blood CAPILLARY BLOOD / Unknown 10/01/2024 3:53 PM EST 10/01/2024 3:53 PM EST Hayley Torres MD POINT OF CARE TEST O RDERABLES Performing Organization Address City/[facility]/ZIP Co de Phone Number [facility] [place] [address] * POC, GLUCOSE (10/01/2024 2:25 PM EST) Glucometer, POC 117 65 - 199 mg/dL 10/01/2024 2:25 PM EST [facility] Comment:Supplemental ranges: <140 mg/dL before meals <180 mg/dL all other times of the day. Blood CAPILLARY BLOOD / Unknown 10/01/2024 2:25 PM EST 10/01/2024 2:25 PM EST Hayley Torres MD POINT OF CARE TEST O GILDA Performing Organization Address [facility] Co de Phone Number [facility] [place] [address] * POC, GLUCOSE (10/01/2024 11:43 AM EST) Glucometer, POC 174 65 - 199 mg/dL 10/01/2024 11:43 AM EST [facility] Comment:Supplemental ranges: <140 mg/dL before meals <180 mg/dL all other times of the day. Blood CAPILLARY BLOOD / Unknown 10/01/2024 11:43 AM EST 10/01/2024 11:43 AM EST Hayley Torres MD POINT OF CARE TEST O GILDA Performing Organization Address City/[facility]/ZIP Co de Phone Number [facility] [place] [address] * POC, GLUCOSE (10/01/2024 9:43 AM EST) Glucometer, POC 191 65 - 199 mg/dL 10/01/2024 9:43 AM EST [facility] Comment:Supplemental ranges: <140 mg/dL before meals <180 mg/dL all other times of the day. Blood CAPILLARY BLOOD / Unknown 10/01/2024 9:43 AM EST 10/01/2024 9:43 AM EST Hayley Torres MD POINT OF CARE TEST O GILDA Performing Organization Address [facility] Co de Phone Number [facility] [place] [address] * POC, GLUCOSE (10/01/2024 7:48 AM EST) Glucometer, POC 151 65 - 199 mg/dL 10/01/2024 7:48 AM EST [facility] Comment:Supplemental ranges: <140 mg/dL before meals <180 mg/dL all other times of the day. Blood CAPILLARY BLOOD / Unknown 10/01/2024 7:48 AM EST 10/01/2024 7:48 AM EST Hayley Torres MD POINT OF CARE TEST O GILDA Performing Organization Address [facility] Co de Phone Number [facility] [place] [address] * POC, GLUCOSE (10/01/2024 4:25 AM EST) Glucometer, POC 133 65 - 199 mg/dL 10/01/2024 4:26 AM EST [facility] Comment:Supplemental ranges: <140 mg/dL before meals <180 mg/dL all other times of the day. Blood CAPILLARY BLOOD / Unknown 10/01/2024 4:25 AM EST 10/01/2024 4:26 AM EST Hayley Torres MD POINT OF CARE TEST O GILDA Performing Organization Address City/[facility] Co de Phone Number [facility] [place] [address] * Phosphorus (10/01/2024 2:02 AM EST) Phosphorus 3.9 2.5 - 4.5 mg/dL 10/01/2024 7:16 AM EST [facility] Blood VENOUS BLOOD SPECIMEN / Unknown Venipuncture / Unknown 10/01/2024 2:02 AM EST 10/01/2024 2:10 AM EST Hayley Torres MD CHEMISTRY ORDERABLES Performing Organization Address [facility] Co de Phone Number [facility] [place] [address] * (ABNORMAL) Scan, Peripheral Blood (10/01/2024 2:02 AM EST) RBC Morphology Abnormal 10/01/2024 2:55 AM EST [facility] Platelet Estimate Increased(A) Normal 10/01 2:55 AM EST [facility] Polychromasia Present 10/01/2024 2:55 AM EST [facility] Platelet Clumps Present(A) (none) 2:55 AM EST [facility] Blood VENOUS BLOOD SPECIMEN / Unknown Venipuncture / Unknown 10/01/2024 2:02 AM EST 10/01/2024 2:10 AM EST Hayley Torres MD HEMATOLOGY ORDERABLE S Performing Organization Address [facility] Co ct Phone Number [facility] [place] [address] * Magnesium (10/01/2024 2:02 AM EST) Magnesium 0.79 0.69 - 1.07 mMol/L 10/01/2024 2:41 AM EST [facility] Blood VENOUS BLOOD SPECIMEN / Unknown Venipuncture / Unknown 10/01/2024 2:02 AM EST 10/01/2024 2:10 AM EST Hayley Torres MD CHEMISTRY ORDERABLES Performing Organization Address [facility] Co de Phone Number [facility] [place] [address] * (ABNORMAL) Basic Metabolic Panel (10/01/2024 2:02 AM EST) Pathologist [facility] Glucose 122 65 - 199 mg/dL 10/01/2024 [...] AM EST Hayley Torres MD CHEMISTRY ORDERABLES [facility] [place] [address] * (ABNORMAL) CBC (with Diff) (10/01/2024 2:02 AM EST) White Blood Cell 10.15(H) 4.00 - 9.50 x10(3)/mc L 10/01/2024 2:55 AM [facility] Red Blood Cell 3.14(L) 4.58 - 5.54 x10(6)/mc L 10/01/2024 2:55 AM [facility] Hemoglobin 9.1(L) 13.7 - 16.5 g/dL 10/01/2024 2:55 AM [facility] Hematocrit 26.9(L) 40.5 - 48.5 % 10/01/2024 2:55 AM [facility] Mean Cell Volume 85.7 82.9 [...] - 0.90 x10(3)/mc L 10/01/2024 2:55 AM [facility] Comment:This is an appended report. These results have been appended to a previously preliminary verified report. Eos % 1.8 % 10/01/2024 2:55 AM [facility] Comment:This is an appended report. These results have been appended to a previously preliminary verified report. Eos Absolute 0.18 0.00 - 0.40 x10(3)/mc L 10/01/2024 2:55 AM [facility] Comment:This is an appended report. These results have been appended to a previously preliminary verified report. Basophil % 0.6 % 10/01/2024 2:55 AM EST [facility] Comment:This is an appended report. These results have been appended to a previously preliminary verified report. Baso Absolute 0.06 0.00 - 0.10 x10(3)/mc L 10/01/2024 2:55 AM EST [facility] Comment:This is an appended report. These results have been appended to a previously preliminary verified report. Immature Gran % 8.4 % 2:55 AM EST [facility] Comment:This is an appended report. These results have been appended to a previously preliminary verified report. Immature Gran Absolute 0.85(H) 0.00 - 0.04 x10(3)/mc L 10/01/2024 2:55 AM EST [facility] Comment:This is an appended report. These results have been appended to a previously preliminary verified report. Blood VENOUS BLOOD SPECIMEN / Unknown Venipuncture / Unknown 10/01/2024 2:02 AM EST 10/01/2024 2:10 AM EST Hayley Torres MD HEMATOLOGY ORDERABLE S [facility] [place] [address] * POC, GLUCOSE (10/01/2024 12:32 AM EST) Glucometer, POC 179 65 - 199 mg/dL 10/01/2024 12:32 AM EST [facility] Comment:Supplemental ranges: <140 mg/dL before meals <180 mg/dL all other times of the day. Blood CAPILLARY BLOOD / Unknown 10/01/2024 12:32 AM EST 10/01/2024 12:32 AM EST Hayley Torres MD POINT OF CARE TEST O RDERABLES [facility] [place] [address] * POC, GLUCOSE (09/30/2024 7:37 PM EST) Glucometer, POC 140 65 - 199 mg/dL 09/30/2024 7:38 PM EST [facility] Comment:Supplemental ranges: <140 mg/dL before meals <180 mg/dL all other times of the day. Blood CAPILLARY BLOOD / Unknown 09/30/2024 7:37 PM EST 09/30/2024 7:38 PM EST Hayley Torres MD POINT OF CARE TEST O GILDA Performing Organization Address City/[facility]/ZIP Co de Phone Number [facility] [place] [address] * POC, GLUCOSE (09/30/2024 4:29 PM EST) Glucometer, POC 126 65 - 199 mg/dL 09/30/2024 4:30 PM EST [facility] Comment:Supplemental ranges: <140 mg/dL before meals <180 mg/dL all other times of the day. Blood CAPILLARY BLOOD / Unknown 09/30/2024 4:29 PM EST 09/30/2024 4:30 PM EST Hayley Torres MD POINT OF CARE TEST O GILDA Performing Organization Address City/[facility]/ZIP Co de Phone Number [facility] [place] [address] * POC, GLUCOSE (09/30/2024 12:16 PM EST) Glucometer, POC 107 65 - 199 mg/dL 09/30/2024 12:16 PM EST [facility] Comment:Supplemental ranges: <140 mg/dL before meals <180 mg/dL all other times of the day. Blood CAPILLARY BLOOD / Unknown 09/30/2024 12:16 PM EST 09/30/2024 12:16 PM EST Hayley Torres MD POINT OF CARE TEST O GILDA [facility] [place] [address] * POC, GLUCOSE (09/30/2024 7:58 AM EST) Glucometer, POC 92 65 - 199 mg/dL 09/30/2024 7:58 AM EST [facility] Comment:Supplemental ranges: <140 mg/dL before meals <180 mg/dL all other times of the day. Blood CAPILLARY BLOOD / Unknown 09/30/2024 7:58 AM EST 09/30/2024 7:58 AM EST Hayley Torres MD POINT OF CARE TEST O RDERABLES [facility] [place] [address] * Potassium (09/30/2024 6:27 AM EST) Potassium 3.9 3.5 - 5.0 mMol/L 09/30/2024 7:10 AM EST [facility] Blood VENOUS BLOOD SPECIMEN / Unknown Venipuncture / Unknown 09/30/2024 6:27 AM EST 09/30/2024 6:35 AM EST Hayley Torres MD CHEMISTRY ORDERABLES Performing Organization Address City/[facility]/ZIP Co de Phone Number [facility] [place] [address] * Vancomycin, trough (09/30/2024 6:27 AM EST) Vancomycin, Trough 14.1 10.0 - 20.0 mg/L 09/30/2024 7:10 AM EST [facility] Comment: Varies according to infection source. Blood VENOUS BLOOD SPECIMEN / Unknown Venipuncture / Unknown 09/30/2024 6:27 AM EST 09/30/2024 6:35 AM EST Hayley Torres MD CHEMISTRY ORDERABLES [facility] [place] [address] * POC, GLUCOSE (09/30/2024 3:51 AM EST) Glucometer, POC 134 65 - 199 mg/dL 09/30/2024 3:51 AM EST [facility] Comment:Supplemental ranges: <140 mg/dL before meals <180 mg/dL all other times of the day. Blood CAPILLARY BLOOD / Unknown 09/30/2024 3:51 AM EST 09/30/2024 3:51 AM EST Hayley Torres MD POINT OF CARE TEST O RDERABLES [facility] [place] [address] * Magnesium (09/29/2024 11:52 PM EST) Magnesium 0.85 0.69 - 1.07 mMol/L 09/30/2024 12:25 AM EST [facility] Blood VENOUS BLOOD SPECIMEN / Unknown Venipuncture / Unknown 09/29/2024 11:52 PM EST 09/29/2024 11:58 PM EST Hayley Torres MD CHEMISTRY ORDERABLES [facility] [place] [address] * (ABNORMAL) Basic Metabolic Panel (09/29/2024 11:52 PM EST) Glucose 133 65 - 199 mg/dL 09/30/2024 12:51 AM EST [facility] Comment:Glucose Concentratio n >=200 mg/dL plus symptoms is consistent with Diabetes Mellitus. Blood Urea Nitrogen 9(L) 10 - 20 mg/dL 09/30/2024 12:51 AM EST [facility] Creatinine 0.48(L) 0.80 - 1.50 mg/dL 09/30/2024 12:51 AM EST [facility] Sodium 138 135 - [...] PM EST Hayley Torres MD CHEMISTRY ORDERABLES [facility] [place] [address] * (ABNORMAL) CBC (with Diff) (09/29/2024 11:52 [...] EST Hayley Torres MD HEMATOLOGY ORDERABLE S [facility] [place] [address] * POC, GLUCOSE (09/29/2024 11:51 PM EST) [facility] Signature Glucometer, POC 134 65 - 199 mg/dL 09/29/2024 11:51 PM [facility] Comment:Supplemental ranges: <140 mg/dL before meals <180 mg/dL all other times of the day. Blood CAPILLARY BLOOD / Unknown 09/29/2024 11:51 PM EST 09/29/2024 11:51 PM EST Hayley Torres MD POINT OF CARE TEST O RDERABLES Performing Organization Address [facility] Co de Phone Number [facility] [place] [address] * Blood culture (09/29/2024 9:24 PM EST) Blood Culture No growth at 120 hours 10/04/2024 11:01 PM EST [facility] Blood VENOUS BLOOD SPECIMEN / Unknown Venipuncture / Unknown 09/29/2024 9:24 PM EST 09/29/2024 9:34 PM EST Hayley Torres MD MICROBIOLOGY - BLOOD ORDERABLES Performing Organization Address [facility] Co de Phone Number [facility] [place] [address] * Blood culture (09/29/2024 9:24 PM EST) Blood Culture No growth at 120 hours 10/04/2024 11:01 PM EST [facility] Blood VENOUS BLOOD SPECIMEN / Unknown Venipuncture / Unknown 09/29/2024 9:24 PM EST 09/29/2024 9:34 PM EST Marko Dickson MD MICROBIOLOGY - BLOOD ORDERABLES Performing Organization Address [facility] Co de Phone Number [facility] [place] [address] * (ABNORMAL) POC, GLUCOSE (09/29/2024 7:35 PM EST) Glucometer, POC 202(H) 65 - 199 mg/dL 09/29/2024 7:36 PM EST [facility] Comment:Supplemental ranges: <140 mg/dL before meals <180 mg/dL all other times of the day. Blood CAPILLARY BLOOD / Unknown 09/29/2024 7:35 PM EST 09/29/2024 7:36 PM EST Hayley Torres MD POINT OF CARE TEST O GILDA Performing Organization Address [facility] Co de Phone Number [facility] [place] [address] * POC, GLUCOSE (09/29/2024 6:48 PM EST) Glucometer, POC 161 65 - 199 mg/dL 09/29/2024 6:48 PM EST [facility] Comment:Supplemental ranges: <140 mg/dL before meals <180 mg/dL all other times of the day. Blood CAPILLARY BLOOD / Unknown 09/29/2024 6:48 PM EST 09/29/2024 6:49 PM EST Hayley Torres MD POINT OF CARE TEST O GILDA Performing Organization Address [facility] Co de Phone Number [facility] [place] [address] * POC, GLUCOSE (09/29/2024 4:06 PM EST) Glucometer, POC 122 65 - 199 mg/dL 09/29/2024 4:06 PM EST [facility] Comment:Supplemental ranges: <140 mg/dL before meals <180 mg/dL all other times of the day. Blood CAPILLARY BLOOD / Unknown 09/29/2024 4:06 PM EST 09/29/2024 4:06 PM EST Hayley Torres MD POINT OF CARE TEST O GILDA Performing Organization Address [facility] Co de Phone Number [facility] [place] [address] * POC, GLUCOSE (09/29/2024 11:49 AM EST) Glucometer, POC 135 65 - 199 mg/dL 09/29/2024 11:49 AM EST [facility] Comment:Supplemental ranges: <140 mg/dL before meals <180 mg/dL all other times of the day. Blood CAPILLARY BLOOD / Unknown 09/29/2024 11:49 AM EST 09/29/2024 11:50 AM EST Hayley Torres MD POINT OF CARE TEST O RDERABLES [facility] [place] [address] * (ABNORMAL) POC, GLUCOSE (09/29/2024 7:53 AM EST) Glucometer, POC 202(H) 65 - 199 mg/dL 09/29/2024 7:53 AM EST [facility] Comment:Supplemental ranges: <140 mg/dL before meals <180 mg/dL all other times of the day. Blood CAPILLARY BLOOD / Unknown 09/29/2024 7:53 AM EST 09/29/2024 7:53 AM EST Hayley Torres MD POINT OF CARE TEST O RDERABLES [facility] [place] [address] * POC, GLUCOSE (09/29/2024 3:45 AM EST) Glucometer, POC 184 65 - 199 mg/dL 09/29/2024 3:46 AM EST [facility] Comment:Supplemental ranges: <140 mg/dL before meals <180 mg/dL all other times of the day. Blood CAPILLARY BLOOD / Unknown 09/29/2024 3:45 AM EST 09/29/2024 3:46 AM EST Hayley Torres MD POINT OF CARE TEST O RDERABLES [facility] [place] [address] * (ABNORMAL) Hemoglobin A1c (09/28/2024 11:51 PM EST) [facility] Hemoglobin A1c 9.7(H) 4.3 - 5.6 % 09/29/2024 9:54 AM [facility] Comment: Per ADA guidelines, without [...] red blood cell turnover may not be self pay representative of glycemic control. Reference Interval: 4.3 - 5.6% 5.7 - 6.4%: Consistent with prediabetes >=6.5%: Consistent with diagnosis of diabetes mellitus Estimated Average Glucose 232 mg/dL 09/29/2024 9:54 AM [facility] Blood VENOUS BLOOD SPECIMEN / Unknown Venipuncture / Unknown 09/28/2024 11:51 PM EST 09/28/2024 11:56 PM EST Hayley Torres MD CHEMISTRY ORDERABLES [facility] [place] [address] * Magnesium (09/28/2024 11:51 PM EST) [facility] Magnesium 0.72 0.69 - 1.07 mMol/L 09/29/2024 12:27 AM [facility] Blood VENOUS BLOOD SPECIMEN / Unknown Venipuncture / Unknown 09/28/2024 11:51 PM EST 09/28/2024 11:57 PM EST Hayley Torres MD CHEMISTRY ORDERABLES [facility] [place] [address] * (ABNORMAL) Basic Metabolic Panel (09/28/2024 11:51 [...] PM EST Hayley Torres MD CHEMISTRY ORDERABLES [facility] [place] [address] * (ABNORMAL) CBC (with Diff) (09/28/2024 11:51 [...] Neutrophil % 86.7 % 09/29/2024 12:00 AM [facility] Neutrophil Absolute (ANC) - Automated 11.06(H) 1.70 [...] - 0.10 x10(3)/mc L 09/29/2024 12:00 AM [facility] Immature Gran % 1.4 % 12:00 AM [facility] Immature Gran Absolute 0.18(H) 0.00 - 0.04 x10(3)/mc L 09/29/2024 12:00 AM [facility] Blood VENOUS BLOOD SPECIMEN / Unknown Venipuncture / Unknown 09/28/2024 11:51 PM EST 09/28/2024 11:56 PM EST Hayley Torres MD HEMATOLOGY ORDERABLE S Performing Organization Address [facility]/ZIP Co de Phone Number [facility] [place] [address] * (ABNORMAL) POC, GLUCOSE (09/28/2024 11:45 PM EST) Glucometer, POC 238(H) 65 - 199 mg/dL 09/28/2024 11:45 PM EST [facility] Comment:Supplemental ranges: <140 mg/dL before meals <180 mg/dL all other times of the day. Blood CAPILLARY BLOOD / Unknown 09/28/2024 11:45 PM EST 09/28/2024 11:45 PM EST Hayley Torres MD POINT OF CARE TEST O RDERAHERNANDEZ Performing Organization Address [facility] Co de Phone Number [facility] [place] [address] * (ABNORMAL) POC, GLUCOSE (09/28/2024 10:00 PM EST) Glucometer, POC 287(H) 65 - 199 mg/dL 09/28/2024 10:00 PM EST [facility] Comment:Supplemental ranges: <140 mg/dL before meals <180 mg/dL all other times of the day. Blood CAPILLARY BLOOD / Unknown 09/28/2024 10:00 PM EST 09/28/2024 10:00 PM EST Hayley Torres MD POINT OF CARE TEST O GILDA [facility] [place] [address] * (ABNORMAL) POC, GLUCOSE (09/28/2024 7:51 PM EST) Glucometer, POC 243(H) 65 - 199 mg/dL 09/28/2024 7:52 PM EST [facility] Comment:Supplemental ranges: <140 mg/dL before meals <180 mg/dL all other times of the day. Blood CAPILLARY BLOOD / Unknown 09/28/2024 7:51 PM EST 09/28/2024 7:52 PM EST Hayley Torres MD POINT OF CARE TEST O RDERABLES Performing Organization Address City/[facility]/ZIP Co de Phone Number [facility] [place] [address] * Blood culture (09/28/2024 5:49 PM EST) Blood Culture No growth at 120 hours 10/03/2024 7:01 PM EST [facility] Blood VENOUS BLOOD SPECIMEN / Unknown Venipuncture / Unknown 09/28/2024 5:49 PM EST 09/28/2024 5:53 PM EST Marko Dickson MD MICROBIOLOGY - BLOOD ORDERABLES Performing Organization Address [facility] Co de Phone Number [facility] [place] [address] * (ABNORMAL) POC, GLUCOSE (09/28/2024 4:42 PM EST) Glucometer, POC 203(H) 65 - 199 mg/dL 09/28/2024 4:42 PM EST [facility] Comment:Supplemental ranges: <140 mg/dL before meals <180 mg/dL all other times of the day. Blood CAPILLARY BLOOD / Unknown 09/28/2024 4:42 PM EST 09/28/2024 4:42 PM EST Hayley Torres MD POINT OF CARE TEST O RDERABLES Performing Organization Address [facility] Co de Phone Number [facility] [place] [address] * (ABNORMAL) Blood Gas, Arterial POC (09/28/2024 3:16 PM EST) pH, Arterial 7.42 7.35 - 7.45 09/28/2024 3:17 PM EST [facility] PCO2, Arterial 39 35 [...] 3.5 - 5.0 mmol/L 09/28/2024 3:17 PM [facility] Chloride, Arterial 99 98 - 107 mmol/L 09/28/2024 3:17 PM [facility] Lactate, Arterial 1.1 0.5 - 2.2 mmol/L 09/28/2024 3:17 PM [facility] IONIZED CALCIUM, ARTERIAL 1.08(L) 1.15 - 1.33 mmol/L 09/28/2024 3:17 PM [facility] Glucose, Arterial 163 65 - 199 mg/dL 09/28/2024 3:17 PM EST [facility] Comment:Glucose Concentratio n >=200 mg/dL plus symptoms is consistent with Diabetes Mellitus. Blood ARTERIAL BLOOD / Unknown 09/28/2024 3:16 PM EST 09/28/2024 3:17 PM EST Hayley Torres MD POINT OF CARE TEST O RDERABLES [facility] [place] [address] * Surgical Pathology (09/28/2024 2:10 PM EST) Case Report Surgical Pathology Report ? Case: [id number] ? Authorizing Provider: ??Hayley Torres MD ? Collected: ? 09/28/2024 1410 ? Ordering Location: ? Main Operating Room [facility] ?? Received: ?09/28/2024 1644 ? [facility] ? Hospital ? Pathologist: ? [...] diagnosis only sns 10/02/2024 8:17 AM EST [facility] Result Note Routine 10/02/2024 8:17 AM EST [facility] Felt Cementer STRUCTURE OF LEFT LOWER LIMB / Unknown 09/28/2024 2:10 PM EST 09/28/2024 4:44 PM EST Comment:Left femoral proxima l graft Biomedical device (physical object) STRUCTURE OF LEFT LOWER LIMB / Unknown 09/28/2024 2:17 PM EST 09/28/2024 4:44 PM EST Comment:Left distal BK pop g raft Hayley Torres MD PATHOLOGY/CYTOLOGY O RDERABLES Performing Organization Address City/[facility]/ZIP Co de Phone Number [facility] [place] [address] * Potassium (09/28/2024 10:45 AM EST) Potassium 4.6 3.5 - 5.0 mMol/L 09/28/2024 12:26 PM EST [facility] Blood VENOUS BLOOD SPECIMEN / Unknown Venipuncture / Unknown 09/28/2024 10:45 AM EST 09/28/2024 10:53 AM EST Marko Dickson MD CHEMISTRY ORDERABLES Performing Organization Address City/[facility]/ZIP Co de Phone Number [facility] [place] [address] * POC, GLUCOSE (09/28/2024 7:57 AM EST) Glucometer, POC 192 65 - 199 mg/dL 09/28/2024 7:57 AM EST [facility] Comment:Supplemental ranges: <140 mg/dL before meals <180 mg/dL all other times of the day. Blood CAPILLARY BLOOD / Unknown 09/28/2024 7:57 AM EST 09/28/2024 7:57 AM EST Marko Dickson MD POINT OF CARE TEST O RDERABLES [facility] [place] [address] * ELEN, legs, multiple levels (09/28/2024 7:44 AM EST) VB Text Report Department: Vascular Surgery Lab Patient: [id number] (GEOVANNA DIXON) CPT: [id number] Referring Physician: HERMILA SNIDER ?? Phone: Indications: [...] VASCUBASE 09/28/2024 7:44 AM EST Hermila White CERTIFIED CODER VASCULAR ORDERABLE S VASCUBASE * ECHO LMTD W/O CONTRAST W LMTD SPEC DOPP COLOR DOPP (09/28/2024 7:35 AM EST) Anatomical Region Laterality Modality Cardiac Other 09/28/2024 6:56 AM EST Narrative 09/28/2024 9:15 AM EST [address] [place] [address] ? Echocardiogram Report Name: GEOVANNA DIXON JR ?Study Date: 09/28/2024 06:56 AMBP: 132/75 mmHg ? Patient Location: ^IC08^A : 1975 ? Height: 179 cm ? Account: [id number] Age: 49 yrs ? Weight: 108 kg Gender: Male ?BSA: 2.3 m2 Ordering Physician: Marko Dickson MD Referring Physician: PATRIC GILES Performed By: Faiza Cole Reason For Study: Vascular graft infection, initial encounter; MRSA bacteremia Interpreting Fellow: Jame Lares. Exam Location: [facility]. Interpretation Summary -Limited study performed for [...] 05/29/2024, no significant changes. Procedure Limited - 73777. Doppler - 28262. Color Doppler - 99307. Suboptimal quality. This study is limited because [...] Note David Lomeli MD - 09/28/2024 [address] [place] [address] Echocardiogram Report Name: GEOVANNA DIXON JR Study Date: 406:56 AMBP: 132/75 mmHg Patient Location:IC08^A : 1975 Height: 179 cm Account: [id number] Age: 49 yrs Weight: 108 kg Gender: Male BSA: 2.3 m2 Ordering Physician: Marko Dickson MD Referring Physician: PATRIC GILES Performed By: Faiza Cole Reason For Study: Vascular graft infection, initial encounter; MRSAbacteremia Interpreting Fellow: Jame Lares. Exam Location: [facility]. Interpretation Summary -Limited study performed for [...] 05/29/2024, no significant changes. Procedure Limited - 95673. Doppler - 47073. Color Doppler - 49185. Suboptimalquality. This study is limited because of [...] - 20.0 mg/L 09/28/2024 7:21 AM EST [facility] Comment: Varies according to infection source. Blood VENOUS BLOOD SPECIMEN / Unknown Venipuncture / Unknown 09/28/2024 6:44 AM EST 09/28/2024 6:49 AM EST Marko Dickson MD CHEMISTRY ORDERABLES [facility] [place] [address] * (ABNORMAL) Potassium (09/28/2024 4:55 AM EST) Potassium 2.9(LLL) 3.5 - 5.0 mMol/L 09/28/2024 5:31 AM EST [facility] Blood VENOUS BLOOD SPECIMEN / Unknown Venipuncture / Unknown 09/28/2024 4:55 AM EST 09/28/2024 5:01 AM EST Marko Dickson MD CHEMISTRY ORDERABLES [facility] [place] [address] * (ABNORMAL) POC, GLUCOSE (09/28/2024 3:54 AM EST) [facility] Glucometer, POC 229(H) 65 - 199 mg/dL 09/28/2024 3:54 AM EST [facility] Comment:Supplemental ranges: <140 mg/dL before meals <180 mg/dL all other times of the day. Blood CAPILLARY BLOOD / Unknown 09/28/2024 3:54 AM EST 09/28/2024 3:54 AM EST Marko Dickson MD POINT OF CARE TEST O RDERABLES [facility] [place] [address] * Magnesium (09/27/2024 11:58 PM EST) [facility] Magnesium 0.77 0.69 - 1.07 mMol/L 09/28/2024 12:38 AM EST [facility] Blood VENOUS BLOOD SPECIMEN / Unknown Venipuncture / Unknown 09/27/2024 11:58 PM EST 09/28/2024 12:10 AM EST Hayley Torres MD CHEMISTRY ORDERABLES [facility] [place] [address] * (ABNORMAL) Basic Metabolic Panel (09/27/2024 11:58 [...] 126 mL/min/1. 73 m?? 09/28/2024 12:38 AM [facility] Comment: [...] AM EST Hayley Torres MD CHEMISTRY ORDERABLES [facility] [place] [address] * (ABNORMAL) CBC (with Diff) (09/27/2024 11:58 [...] - 0.40 x10(3)/mc L 09/28/2024 12:14 AM [facility] Basophil % 0.5 % 09/28/2024 [...] EST Hayley Torres MD HEMATOLOGY ORDERABLE S [facility] [place] [address] * (ABNORMAL) POC, GLUCOSE (09/27/2024 11:46 PM EST) Glucometer, POC 205(H) 65 - 199 mg/dL 09/27/2024 11:46 PM EST [facility] Comment:Supplemental ranges: <140 mg/dL before meals <180 mg/dL all other times of the day. Blood CAPILLARY BLOOD / Unknown 09/27/2024 11:46 PM EST 09/27/2024 11:46 PM EST Marko Dickson MD POINT OF CARE TEST O RDERABLES [facility] [place] [address] * (ABNORMAL) Blood culture (09/27/2024 9:33 PM EST) [facility] Blood Culture Methicillin Resistant Staphylococcus aureus(Critical) 10/02/2024 8:04 AM EST [facility] Comment:Susceptibilities pre viously reported. Gram Stain Aerobic Bottle: Gram positive cocci in clusters(Critical ) 10/02/2024 8:04 AM EST [facility] Blood VENOUS BLOOD SPECIMEN / Unknown Venipuncture / Unknown 09/27/2024 9:33 PM EST 09/27/2024 9:38 PM EST Marko Dickson MD MICROBIOLOGY - BLOOD ORDERABLES [facility] [place] [address] * POC, GLUCOSE (09/27/2024 7:51 PM EST) Glucometer, POC 142 65 - 199 mg/dL 09/27/2024 7:51 PM EST [facility] Comment:Supplemental ranges: <140 mg/dL before meals <180 mg/dL all other times of the day. Blood CAPILLARY BLOOD / Unknown 09/27/2024 7:51 PM EST 09/27/2024 7:51 PM EST Marko Dickson MD POINT OF CARE TEST O RDERABLES [facility] [place] [address] * (ABNORMAL) Hemogram (09/27/2024 5:55 PM EST) [facility] White Blood Cell 19.38(H) 4.00 - 9.50 x10(3)/mc L 09/27/2024 6:16 PM [facility] Red Blood Cell 3.76(L) 4.58 - 5.54 x10(6)/mc L 09/27/2024 6:16 PM [facility] Hemoglobin 11.0(L) 13.7 - 16.5 g/dL 09/27/2024 6:16 PM [facility] Hematocrit 31.6(L) 40.5 - 48.5 % 09/27/2024 6:16 PM [facility] Mean Cell Volume 84.0 82.9 [...] - 45.0 fL 09/27/2024 6:16 PM EST [facility] RDW coefficient of variation 13.0 11.4 - 13.8 % 09/27/2024 6:16 PM EST [facility] NRBC% auto 0.0 % 09/27/2024 6:16 PM EST [facility] NRBC Absolute <0.01 <0.01 x10(3)/mc L 09/27/2024 6:16 PM EST [facility] Blood VENOUS BLOOD SPECIMEN / Unknown Venipuncture / Unknown 09/27/2024 5:55 PM EST 09/27/2024 6:05 PM EST Marko Dickson MD HEMATOLOGY ORDERABLE S Performing Organization Address City/[facility]/ZIP Co de Phone Number [facility] [place] [address] * POC, GLUCOSE (09/27/2024 5:48 PM EST) Glucometer, POC 171 65 - 199 mg/dL 09/27/2024 5:48 PM EST [facility] Comment:Supplemental ranges: <140 mg/dL before meals <180 mg/dL all other times of the day. Blood CAPILLARY BLOOD / Unknown 09/27/2024 5:48 PM EST 09/27/2024 5:48 PM EST Marko Dickson MD POINT OF CARE TEST O RDERABLES [facility] [place] [address] * Anaerobic Culture (09/27/2024 4:54 PM EST) Anaerobic Culture No anaerobic organisms isolated 10/01/2024 3:54 PM EST [facility] Tissue STRUCTURE OF LEFT THIGH / Unknown 09/27/2024 4:54 PM EST Comment:Infected explanted l eft leg bypass graft Hayley Torres MD MICROBIOLOGY - GENER AL ORDERABLES [facility] [place] [address] * (ABNORMAL) Tissue Culture, Aerobic Only (09/27/2024 4:54 PM EST) Tissue Culture Rare Methicillin Resistant Staphylococcus aureus(A) VITEK 2 METHOD 10/01/2024 1:18 PM EST [facility] Gram Stain Few Neutrophils seen 10/01/2024 1:18 PM EST [facility] Gram Stain No microorganisms seen 10/01/2024 1:18 PM EST [facility] Tissue STRUCTURE OF LEFT [...] Torres MD MICROBIOLOGY - GENER AL ORDERABLES [facility] [place] [address] * Fungus culture (09/27/2024 4:54 PM EST) Fungus Culture No fungus isolated 10/31/2024 7:55 AM EST [facility] Tissue STRUCTURE OF LEFT THIGH / Unknown 09/27/2024 4:54 PM EST 09/27/2024 5:23 PM EST Comment:Infected explanted l eft leg bypass graft Hayley Torres MD MICROBIOLOGY - GENER AL ORDERABLES Performing Organization Address City/[facility]/ZIP Co de Phone Number [facility] [place] [address] * POC, GLUCOSE (09/27/2024 3:23 PM EST) Glucometer, POC 178 65 - 199 mg/dL 09/27/2024 3:23 PM EST [facility] Comment:Supplemental ranges: <140 mg/dL before meals <180 mg/dL all other times of the day. Blood CAPILLARY BLOOD / Unknown 09/27/2024 3:23 PM EST 09/27/2024 3:23 PM EST Marko Dickson MD POINT OF CARE TEST O RDERABLES Performing Organization Address [facility]/ZIP Co de Phone Number [facility] [place] [address] * POC, GLUCOSE (09/27/2024 11:29 AM EST) Glucometer, POC 181 65 - 199 mg/dL 09/27/2024 11:29 AM EST [facility] Comment:Supplemental ranges: <140 mg/dL before meals <180 mg/dL all other times of the day. Blood CAPILLARY BLOOD / Unknown 09/27/2024 11:29 AM EST 09/27/2024 11:30 AM EST Marko Dickson MD POINT OF CARE TEST O RDERABLES Performing Organization Address City/[facility]/ZIP Co de Phone Number [facility] [place] [address] * CT Lower Extremity w Contrast Left (09/27/2024 9:16 AM EST) [employer] WORKSTATION ID [id number] RAD Anatomical Region Laterality Modality Hip, Leg, [...] have questions please contact the health care director that requested your imaging first. ? Narrative [...] wedged between the vastus medialis and adductor Harrison muscle. This tracks into the popliteal fossa [...] who have questions please contactthe health care director that requested your imaging first. Rose Wright APRN IMG CT ORDERABL ES * POC, GLUCOSE (09/27/2024 7:51 AM EST) Pathologist [facility] Glucometer, POC 194 65 - 199 mg/dL 09/27/2024 7:51 AM EST [facility] Comment:Supplemental ranges: <140 mg/dL before meals <180 mg/dL all other times of the day. Blood CAPILLARY BLOOD / Unknown 09/27/2024 7:51 AM EST 09/27/2024 7:51 AM EST Marko Dickson MD POINT OF CARE TEST O RDERABLES [facility] [place] [address] * (ABNORMAL) MRSA PCR Screen (09/27/2024 7:51 AM EST) MRSA PCR Detected(A ) 09/27/2024 11:56 AM EST [facility] Swab BOTH ANTERIOR NARES / Unknown Non Blood Collection / Unknown 09/27/2024 7:51 AM EST 09/27/2024 8:05 AM EST Narrative [facility] - 09/27/2024 11:56 AM EST This test was performed using the Xpert MRSA NxG test kit and is run on the [employer] GeneXpert Dx System. This test is cleared by the U.S. Food and Drug Administration for clinical use and its performance characteristics have been verified by the [facility] at [facility]. Marko Dikcson MD MOLECULAR ORDERABLES [facility] [place] [address] * Potassium (09/27/2024 7:51 AM EST) Potassium 3.5 3.5 - 5.0 mMol/L 09/27/2024 9:09 AM EST [facility] Blood VENOUS BLOOD SPECIMEN / Unknown Venipuncture / Unknown 09/27/2024 7:51 AM EST 09/27/2024 8:05 AM EST Marko Dickson MD CHEMISTRY ORDERABLES Performing Organization Address [facility]/ZIP Co de Phone Number [facility] [place] [address] * (ABNORMAL) Potassium (09/27/2024 5:05 AM EST) [facility] Signature Potassium 3.4(L) 3.5 - 5.0 mMol/L 09/27/2024 5:32 AM EST [facility] Blood VENOUS BLOOD SPECIMEN / Unknown Venipuncture / Unknown 09/27/2024 5:05 AM EST 09/27/2024 5:09 AM EST Marko Dickson MD CHEMISTRY ORDERABLES Performing Organization Address City/[facility]/ZIP Co de Phone Number [facility] [place] [address] * POC, GLUCOSE (09/27/2024 3:52 AM EST) Glucometer, POC 199 65 - 199 mg/dL 09/27/2024 3:52 AM EST [facility] Comment:Supplemental ranges: <140 mg/dL before meals <180 mg/dL all other times of the day. Blood CAPILLARY BLOOD / Unknown 09/27/2024 3:52 AM EST 09/27/2024 3:52 AM EST Marko Dickson MD POINT OF CARE TEST O GILDA Performing Organization Address City/[facility]/ZIP Co de Phone Number [facility] [place] [address] * (ABNORMAL) POC, GLUCOSE (09/27/2024 1:59 AM EST) Glucometer, POC 219(H) 65 - 199 mg/dL 09/27/2024 2:00 AM EST [facility] Comment:Supplemental ranges: <140 mg/dL before meals <180 mg/dL all other times of the day. Blood CAPILLARY BLOOD / Unknown 09/27/2024 1:59 AM EST 09/27/2024 2:00 AM EST Marko Dickson MD POINT OF CARE TEST Stephanie VO Performing Organization Address [facility]/ZIP Co de Phone Number [facility] [place] [address] * (ABNORMAL) Magnesium (09/27/2024 12:01 AM EST) Magnesium 0.68(L) 0.69 - 1.07 mMol/L 09/27/2024 12:35 AM EST [facility] Blood VENOUS BLOOD SPECIMEN / Unknown Venipuncture / Unknown 09/27/2024 12:01 AM EST 09/27/2024 12:05 AM EST Hayley Torres MD CHEMISTRY ORDERABLES Performing Organization Address City/[facility]/ZIP Co de Phone Number [facility] [place] [address] * (ABNORMAL) Basic Metabolic Panel (09/27/2024 12:01 AM EST) Glucose 261(H) 65 - 199 mg/dL 09/27/2024 12:35 AM EST [facility] [...] AM EST Hayley Torres MD CHEMISTRY ORDERABLES [facility] [place] [address] * (ABNORMAL) CBC (with Diff) (09/27/2024 12:01 [...] EST Hayley Torres MD HEMATOLOGY ORDERABLE S [facility] [place] [address] * (ABNORMAL) POC, GLUCOSE (09/26/2024 11:59 PM EST) Glucometer, POC 251(H) 65 - 199 mg/dL 09/26/2024 11:59 PM EST [facility] Comment:Supplemental ranges: <140 mg/dL before meals <180 mg/dL all other times of the day. Blood CAPILLARY BLOOD / Unknown 09/26/2024 11:59 PM EST 09/26/2024 11:59 PM EST Marko Dickson MD POINT OF CARE TEST O GILDA [facility] [place] [address] * (ABNORMAL) POC, GLUCOSE (09/26/2024 7:34 PM EST) Glucometer, POC 204(H) 65 - 199 mg/dL 09/26/2024 7:34 PM EST [facility] Comment:Supplemental ranges: <140 mg/dL before meals <180 mg/dL all other times of the day. Blood CAPILLARY BLOOD / Unknown 09/26/2024 7:34 PM EST 09/26/2024 7:35 PM EST Marko Dickson MD POINT OF CARE TEST Stephanie VO [facility] [place] [address] * (ABNORMAL) Blood culture (09/26/2024 6:45 PM EST) Blood Culture Methicillin Resistant Staphylococcus aureus(Critical) 10/01/2024 6:58 AM EST [facility] Comment: isolated. Susceptibilities previously reported. Gram Stain Aerobic Bottle: Gram positive cocci in clusters(Critical ) 10/01/2024 6:58 AM EST [facility] Blood VENOUS BLOOD SPECIMEN / Unknown Venipuncture / Unknown 09/26/2024 6:45 PM EST 09/26/2024 6:48 PM EST Marko Dickson MD MICROBIOLOGY - BLOOD ORDERABLES Performing Organization Address [facility]/ZIP Co de Phone Number [facility] [place] [address] * (ABNORMAL) Sonicated Tissue/Implant Culture (09/26/2024 5:16 PM EST) Sonicated Tissue/Implan t Culture Methicillin Resistant Staphylococcus aureus(A) VITEK 2 METHOD 09/30/2024 1:49 PM EST [facility] Comment: isolated from broth culture. Susceptibilities previously reported. Vascular Graft STRUCTURE OF LEFT LOWER LIMB / Unknown Non Blood Collection / Unknown 09/26/2024 5:16 PM EST 09/26/2024 5:45 PM EST Marko Dickson MD MICROBIOLOGY - GENER AL ORDERABLES Performing Organization Address City/[facility]/ZIP Co de Phone Number [facility] [place] [address] * Anaerobic Culture (09/26/2024 5:02 PM EST) Anaerobic Culture No anaerobic organisms isolated 09/30/2024 3:51 PM EST [facility] Abscess STRUCTURE OF LEFT KNEE REGION / Unknown Non Blood Collection / Unknown 09/26/2024 5:02 PM EST Comment:Left Below Knee popl iteal fluid Please perform Gram stain if not included in order Hayley Torres MD MICROBIOLOGY - GENER AL ORDERABLES Performing Organization Address City/[facility]/ZIP Co de Phone Number [facility] [place] [address] * (ABNORMAL) Abscess/Wound Aspirate Culture, Aerobic Only (09/26/2024 5:02 PM EST) Abscess/Wound Aspirate Culture Many Methicillin Resistant Staphylococcus aureus(A) VITEK 2 METHOD 09/30/2024 1:37 PM EST [facility] Gram Stain Many neutrophils(A) 09/30/2024 1:37 PM EST [facility] Gram Stain Many Gram positive cocci(A) 09/30/2024 1:37 PM EST [facility] Abscess STRUCTURE OF LEFT [...] Torres MD MICROBIOLOGY - GENER AL ORDERABLES [facility] [place] [address] * Fungus culture (09/26/2024 5:02 PM EST) Fungus Culture No fungus isolated 10/24/2024 7:54 AM EST [facility] Abscess STRUCTURE OF LEFT KNEE REGION / Unknown Non Blood Collection / Unknown 09/26/2024 5:02 PM EST 09/26/2024 5:08 PM EST Comment:Left Below Knee popl iteal fluid Please perform Gram stain if not included in order Hayley Torres MD MICROBIOLOGY - GENER AL ORDERABLES [facility] [place] [address] * Anaerobic Culture (09/26/2024 4:50 PM EST) Anaerobic Culture No anaerobic organisms isolated 09/30/2024 3:51 PM EST [facility] Abscess LEFT INGUINAL REGION STRUCTURE / Unknown Non Blood Collection / Unknown 09/26/2024 4:50 PM EST Comment:Left Groin Fluid Hayley Torres MD MICROBIOLOGY - GENER AL ORDERABLES [facility] [place] [address] * (ABNORMAL) Abscess/Wound Aspirate Culture, Aerobic Only (09/26/2024 4:50 PM EST) Abscess/Wound Aspirate Culture Many Methicillin Resistant Staphylococcus aureus(A) VITEK 2 METHOD 09/30/2024 1:36 PM EST [facility] Gram Stain Many neutrophils(A) 09/30/2024 1:36 PM EST [facility] Gram Stain Many Gram positive cocci(A) 09/30/2024 1:36 PM EST [facility] Abscess LEFT INGUINAL REGION [...] AL ORDERABLES Performing Organization Address [facility] Co de Phone Number [facility] [place] [address] * Fungus culture (09/26/2024 4:50 PM EST) Pathologist [facility] Fungus Culture No fungus isolated 10/24/2024 7:54 AM [facility] Abscess LEFT INGUINAL REGION STRUCTURE / Unknown Non Blood Collection / Unknown 09/26/2024 4:50 PM EST 09/26/2024 4:56 PM EST Comment:Left Groin Fluid Hayley Torres MD MICROBIOLOGY - GENER AL ORDERABLES Performing Organization Address [facility] Co de Phone Number [facility] [place] [address] * (ABNORMAL) Blood Gas, Arterial POC (09/26/2024 4:43 PM EST) [facility] pH, Arterial 7.38 7.35 - 7.45 09/27/2024 7:41 AM [facility] PCO2, Arterial 41 35 - [...] [facility] [place] [address] * (ABNORMAL) POC, GLUCOSE (09/26/2024 4:29 PM EST) Glucometer, POC 213(H) 65 - 199 mg/dL 09/26/2024 4:30 PM EST [facility] Comment:Supplemental ranges: <140 mg/dL before meals <180 mg/dL all other times of the day. Blood CAPILLARY BLOOD / Unknown 09/26/2024 4:29 PM EST 09/26/2024 4:30 PM EST Marko Dickson MD POINT OF CARE TEST O RDERABLES [facility] [place] [address] * (ABNORMAL) Blood Gas, Venous POC (09/26/2024 3:28 PM EST) pH, Venous 7.43(H) 7.32 - 7.42 09/26/2024 3:30 PM [facility] PCO2, Venous 41 38 - 58 mmHg 09/26/2024 3:30 PM [facility] PO2, Venous 18 16 - 65 mmHg 09/26/2024 3:30 PM [facility] Bicarbonate, Venous 26.6 22 - 31 mmol/L 09/26/2024 3:30 PM [facility] Base Excess, Venous 2.3 1.9 - 4.5 mmol/L 09/26/2024 3:30 PM [facility] Hemoglobin, Venous 12.4(L) 13.7 - 16.5 g/dL 09/26/2024 3:30 PM [facility] Oxyhemoglobin, Venous 26.8 % 09/26/2024 3:30 PM [facility] Carboxyhemoglobin , Venous 1.0 % 09/26/2024 3:30 PM [facility] Comment: Nonsmokers: 0.5-1.5% COHB ?? Smokers: Variable ??but usually less than 10% ?? Toxic: 20-30% COHB ?? Lethal: Greater than 60% COHB Methemoglobin, Venous 0.4 <=1.5 % 09/26/2024 3:30 PM [facility] Sodium, Venous 127(L) 135 - 145 mmol/L 09/26/2024 3:30 PM [facility] Potassium, Venous 3.3(L) 3.5 - 5.0 mmol/L 09/26/2024 3:30 PM [facility] Chloride, Venous 91(L) 98 - 107 mmol/L 09/26/2024 3:30 PM [facility] Glucose, Venous 259(H) 65 - 199 mg/dL 09/26/2024 3:30 PM [facility] Comment:Glucose Concentratio n >=200 mg/dL plus symptoms is consistent with Diabetes Mellitus. Lactate, Venous 2.2 0.5 - 2.2 mmol/L 09/26/2024 3:30 PM [facility] Ionized Calcium, Venous 1.09(L) 1.15 - 1.33 mmol/L 09/26/2024 3:30 PM [facility] Blood VENOUS BLOOD SPECIMEN / Unknown 09/26/2024 3:28 PM EST 09/26/2024 3:30 PM EST Marko Dickson MD POINT OF CARE TEST O RDERABLES [facility] [place] [address] * (ABNORMAL) Scan, Peripheral Blood (09/26/2024 2:39 PM EST) RBC Morphology Abnormal 09/26/2024 3:21 PM [facility] Platelet Estimate Normal Normal 09/26/2024 3:21 PM [facility] Microcyte 1-5 /HPF 09/26/2024 3:21 PM [facility] Platelet Clumps Present(A) (none) 3:21 PM [facility] WBC MORPHOLOGY See Comment(A) (none) 09/26/2024 3:21 PM [facility] Comment:Dohle BodiesToxic Gr anulation Blood VENOUS BLOOD SPECIMEN / Unknown Venipuncture / Unknown 09/26/2024 2:39 PM EST 09/26/2024 2:50 PM EST Marko Dickson MD HEMATOLOGY ORDERABLE S [facility] [place] [address] * ABORH RECHECK (PATIENT HISTORY FOUND) (09/26/2024 2:39 PM EST) Pathologist [facility] ABORH Recheck Progress Complete 09/26/2024 5:01 PM EST [facility] Blood VENOUS BLOOD SPECIMEN / Unknown Venipuncture / Unknown 09/26/2024 2:39 PM EST 09/26/2024 2:56 PM EST Marko Dickson MD BLOOD BANK LAB ORDER RANDELL [facility] [place] [address] * (ABNORMAL) Hepatic Function Panel (09/26/2024 2:39 PM EST) [facility] Albumin 3.1(L) 3.2 - 5.2 g/dL 09/26/2024 4:23 PM EST [facility] Aspartate Aminotransferase 16 <=39 unit/L 09/26/2024 4:23 PM EST [facility] Alanine Aminotransferase 14 0 [...] - 8.0 g/dL 09/26/2024 4:23 PM EST [facility] Blood VENOUS BLOOD SPECIMEN / Unknown Venipuncture / Unknown 09/26/2024 2:39 PM EST 09/26/2024 2:50 PM EST Marko Dickson MD CHEMISTRY ORDERABLES [facility] [place] [address] * (ABNORMAL) Basic Metabolic Panel (09/26/2024 2:39 PM EST) Glucose 254(H) 65 - 199 mg/dL 09/26/2024 4:32 PM EST [facility] [...] 22 - 31 mMol/L 09/26/2024 4:32 PM [facility] Anion Gap 13 5 - 15 mMol/L 09/26/2024 4:32 PM [facility] Calcium 8.9 8.5 - 10.5 mg/dL 09/26/2024 4:32 PM [facility] Est Glomerular Filtration Rate - Male 121 mL/min/1. 73 m?? 09/26/2024 4:32 PM [facility] Comment: This [...] PM EST Hayley Torres MD CHEMISTRY ORDERABLES [facility] [place] [address] * (ABNORMAL) CBC (with Diff) (09/26/2024 2:39 PM EST) White Blood Cell 22.76(H) 4.00 - 9.50 x10(3)/mc L 09/26/2024 3:21 PM [facility] Red Blood Cell 4.20(L) 4.58 - 5.54 x10(6)/mc L 09/26/2024 3:21 PM [facility] Hemoglobin 12.3(L) 13.7 - 16.5 [...] Eos % 0.0 % 09/26/2024 3:21 PM EST [facility] Comment:This is an appended report. These results have been appended to a previously preliminary verified report. Eos Absolute <0.04 0.00 - 0.40 x10(3)/mc L 09/26/2024 3:21 PM EST [facility] Comment:This is an appended report. These results have been appended to a previously preliminary verified report. Basophil % 0.5 % 09/26/2024 3:21 PM EST [facility] Comment:This is an appended report. These results have been appended to a previously preliminary verified report. Baso Absolute 0.11(H) 0.00 - 0.10 x10(3)/mc L 09/26/2024 3:21 PM [facility] Comment:This is an appended report. These results have been appended to a previously preliminary verified report. Immature Gran % 1.2 % 3:21 PM EST [facility] Comment:This is an appended [...] EST Hayley Torres MD HEMATOLOGY ORDERABLE S [facility] [place] [address] * Phosphorus (09/26/2024 2:39 PM EST) Phosphorus 3.2 2.5 - 4.5 mg/dL 09/26/2024 4:05 PM [facility] Blood VENOUS BLOOD SPECIMEN / Unknown Venipuncture / Unknown 09/26/2024 2:39 PM EST 09/26/2024 2:50 PM EST Marko Dickson MD CHEMISTRY ORDERABLES Performing Organization Address City/[facility]/ZIP Co de Phone Number [facility] [place] [address] * (ABNORMAL) Magnesium (09/26/2024 2:39 PM EST) Magnesium 0.65(L) 0.69 - 1.07 mMol/L 09/26/2024 4:05 PM EST [facility] Blood VENOUS BLOOD SPECIMEN / Unknown Venipuncture / Unknown 09/26/2024 2:39 PM EST 09/26/2024 2:50 PM EST Marko Dickson MD CHEMISTRY ORDERABLES Performing Organization Address City/[facility]/ZIP Co de Phone Number [facility] [place] [address] * Type and screen ([facility]/CGP/BABITA) (09/26/2024 2:39 PM EST) Pathologist [facility] ABORH Type A POSITIVE 09/26/2024 3:45 PM EST [facility] PATIENT HISTORY Found 09/26/2024 3:45 PM EST [facility] Expires at [id number] on: 09/29/2024 09/26/2024 3:45 PM EST [facility] ANTIBODY SCREEN AUTOMATED Negative 09/26/2024 3:45 PM EST [facility] T&S only valid at [facility] 09/26/2024 3:45 PM EST [facility] Blood VENOUS BLOOD SPECIMEN / Unknown Venipuncture / Unknown 09/26/2024 2:39 PM EST 09/26/2024 2:56 PM EST Narrative [facility] - 09/26/2024 3:45 PM EST This Type and Screen result is only valid at the [facility] Marko Dickson MD BLOOD BANK LAB ORDER RANDELL Performing Organization Address City/[facility]/ZIP Co de Phone Number [facility] [place] [place] [address] * (ABNORMAL) Fibrinogen (09/26/2024 2:39 PM EST) Fibrinogen >1,000(H) 200 - 393 mg/dL 09/26/2024 3:09 PM EST [facility] Comment: A fibrinogen level >100 mg/dL is adequate for hemostasis in most patients without underlying bleeding disorders. Blood VENOUS BLOOD SPECIMEN / Unknown Venipuncture / Unknown 09/26/2024 2:39 PM EST 09/26/2024 2:50 PM EST Marko Dickson MD HEMATOLOGY ORDERABLE S Performing Organization Address [facility] Co de Phone Number [facility] [place] [address] * APTT (09/26/2024 2:39 PM EST) Partial Thromboplastin Time 36 25 - 37 sec 09/26/2024 3:09 PM EST [facility] Comment: The PTT is [...] Performing Organization Address City/[facility] Co de Phone Number [facility] [place] [address] * (ABNORMAL) Prothrombin Time (09/26/2024 2:39 PM EST) Prothrombin Time 21.6(H) 9.4 - 12.5 sec 09/26/2024 3:09 PM EST [facility] International Normalization Ratio 1.9 <=4.9 09/26/2024 3:09 PM EST [facility] Comment: An INR < [...] Performing Organization Address [facility] Co de Phone Number [facility] [place] [address] * (ABNORMAL) POC, GLUCOSE (09/26/2024 2:36 PM EST) Glucometer, POC 268(H) 65 - 199 mg/dL 09/26/2024 2:36 PM EST [facility] Comment:Supplemental ranges: <140 mg/dL before meals <180 mg/dL all other times of the day. Blood CAPILLARY BLOOD / Unknown 09/26/2024 2:36 PM EST 09/26/2024 2:36 PM EST Marko Dickson MD POINT OF CARE TEST O RDERABLES Performing Organization Address [facility] Co de Phone Number [facility] [place] [address] * (ABNORMAL) Blood culture (09/26/2024 2:22 PM EST) Blood Culture Methicillin Resistant Staphylococcus aureus(Critical) VITEK 2 METHOD 10/07/2024 7:40 AM EST [facility] Comment: detected by PCR Isolate saved. If future testing is required, contact the Microbiology Carton Counter Feeder. Gram Stain Aerobic Bottle: Gram positive cocci in clusters(Critical ) 10/07/2024 7:40 AM EST [facility] [...] VITEK 2 METHOD 1.0 ug/ml: Susceptible Marko Dicskon MD MICROBIOLOGY - BLOOD ORDERABLES Performing Organization Address City/State/[facility] Co de Phone Number [facility] [place] [address] * Request For 2nd Read CT Lower Extremity (09/26/2024 1:50 PM EST) [employer] WORKSTATION ID [id number] [facility] Anatomical Region Laterality Modality Hip, Leg, Knee, [...] have questions please contact the health care director that requested your imaging first. ? Narrative 09/26/2024 3:01 PM EST EXAMINATION: REQUEST FOR 2ND READ CT LOWER EXTREMITY CLINICAL HISTORY: Pt s/p LLE femoral-below knee popliteal bypass with PTFE graft, c/f infection surrounding graft, en route to [facility] for possible vascular surgery intervention; Sending Institution [facility]; Date of exam [id number]; I believe [...] on series 3, image 8 and 641, 692, 751, 562. No other rim-enhancing fluid collection is seen. [...] c/f infection surrounding graft, en route to [facility] for possiblevascular surgery intervention; Sending Institution [facility]; Date of exam [id number]; Ibelieve a [...] on series 3, image 8 and 641, [phone]. No other rim-enhancing fluid collection is seen. [...] who have questions please contactthe health care director that requested your imaging first. Marko Dickson [...] Indira Tracey RN)211 (Given - Provider: Lauren Zavala, DAVID) 06 (Given - Provider: Lauren Zavala RN)144 (Given - Provider: Terell Araiza, RN) insulin glargine-ygfn (Semglee) (100 unit/mL) subcutaneous injection vial 25 Units 25 Units, Subcutaneous, 2 TIMES DAILY, First dose (after last modification) on Wed09/28/24 at 0900, Until Discontinued, Routine 0903 (Given - Provider: Indira Tracey RN)2029 (Given - Provider: Jordyn Navas RN) 09 (Given - Provider: Jaja Diallo RN)2024 (Given - Provider: Lauren Zavala RN) 0834 [...] Terell Araiza, RN)1333 (Given - Provider: Terell Ariaza, RN)1700 (Due) insulin lispro (HumaLOG;Admelog) (100 unit/mL) [...] and then remove for 12 hours., Routine 2156 (Not Given - Provider: Jordyn Navas RN [...] Navas RN) 0902 (Given - Provider: Jaja Diallo RN)2022 (Given - Provider: Lauren Zavala, DAVID) 0831 (Given - Provider: Terell Araiza, [...] Navas RN) 0903 (Given - Provider: Jaja Diallo, DAVID)1711 (Given - Provider: Jeana Cabrera LPN)2116 (Given [...] Routine 2027 (See Alternative - Provider: Jordyn Navas, DAVID) 627 (Given - Provider: Jordyn Navas RN [...] documented in this encounter Care Teams Cotton Buyer Relationship Specialty Start Date End Date Charles Romero [place] [address] PCP - General Internal Medicine 09/18/24 documented as of this encounter
--- OUTSIDE RECORDS SUMMARY | 2024-10-31 15:32 | XMS_ITS | Encounter Summary ---
[place] [address] Care Team Providers Care Packing Room Supervisor Name Role Phone Charles Romero Primary Care Provider + Encounter Details Date Type Department Care Team (Late st Contact Info) Description 10/04/2024 9:15 AM EST Anesthesia Event [place] [address] Michelle Crawford [facility] [address] [place] [address] Anesthesia Record Procedure Summary Procedure Name Responsible [...] calf incision 10/04/24 1557 by Linda Pollock golf ball winder 10/06/24; 0900; Left , anterior, distal; thigh; other (see comments) (vertical yung drain site); Yung drain site 10/06/24 0900 by Liana Mccormack V, RN PICC Line 10/23/24; 1325; Sing le Lumen; pressure injectable catheter; 4 Fr; basilic vein (medial side of arm), right; 0 cm; 42 cm; 42 cm; 35; placement verified by x-ray; caval atrial junction; Javan Oreilly RN; distraction, intradermal injection, tolerated well; 0 10/23/24 1325 by Gallo Oreilly RN documented in this encounter Social History Tobacco Use Types Packs/Day Years Used Date Smoking Tobacco: Every Day Cigarettes 1 25 Started: 12/28/1986; Last attempted to quit: 12/28/2011 Smokeless Tobacco: Never Alcohol Use Standard Drinks/Week Comments No 0 (1 standard drink = 0.6 oz pur e alcohol) [facility] Utilities Answer Date Recorded In the past 12 months has th e [employer], gas, oil, or water [facility] threatened to shut off services in your [...] in a group home (including now)? No 09/27/2024 IPV Inpatient [...] PM EST Office [place] [address] Isabela Hayward, RADIO INTERFERENCE EXPERT [facility] [place] [address] 11/10/2024 10:00 AM EST Office Visit Vascular Surgery at [place] [phone] Dai Whitman APRN 11/21/2024 2:15 PM EST Office [place] [phone] Dayanara Grover MD [facility] [place] [address] documented as of this encounter Visit Diagnoses Not on filedocumented in this encounter Care Teams Packing Room Supervisor Relationship Specialty Start Date End Date [place] [address] PCP - General Internal Medicine 09/18/24 documented as of this encounter
--- OUTSIDE RECORDS SUMMARY | 2024-10-31 15:32 | XMS_ITS | Encounter Summary ---
Author Organization [facility] [place] [address] Care Team Providers Care Manager Scientific Name Role Phone Charles Romero Primary Care Provider + Reason for Visit * Auth/Cert (Routine) Specialty Diagnoses / Procedures Referred By William moses Referred To Contact Diagnoses Vascular graft infection, initial encounter Sepsis [A41.9] T82.7XXA Procedures EMERGENCY IPI Angel Gonsalez MD [facility] [place] [address] [facility] Referral ID Status Reason Start Date Expiration Date Visits Re quested Visits Authorized [id number] 1 1 Encounter Details Date Type Department Care Team (Late st Contact Info) Description 10/02/2024 1:24 PM EST Anesthesia [place] [address] Kodi Richardson MD [facility] [place] [address] Anesthesia Record Procedure Summary Procedure Name Responsible [...] questions and acknowledgement of understanding Marko Mckeon, BEE RANCHER 1424 Break/Relief Out 1454 Extubation/LMA Out 1458 [...] by Liana Mccormack RN PIV 09/26/24; 1200; yzuw-ziu-bxkmew catheter system; 18 gauge; median cubital vein (antecubital fossa), left; [facility]; site symptomatic; 10/04/24; 1100 09/26/24 1200 by Pamela Eli RN 10/04/24 1100 by Liana Mccormack RN PIV 09/26/24; 1534; 20 gauge; basilic vein (medial side of arm), right; site symptomatic; 10/04/24; 1100 09/26/24 1534 by Pamela Eli RN 10/04/24 1100 by Liana Mccormack RN Urethral Catheter 09/26/24; 1620; Surg wei longer than 2 hours, Physician order, Need for intraoperative urine output monitoring; Immobility without alternative; indwelling double lumen catheter; hydrophilic coated, latex; 14; inserted at [facility]; 1; 5; 10; none; drainage bag; [...] (15F round drain with bulb); removed by CORPORATE BANKING OFFICER; 10/09/24; 1000 10/02/24 1424 by Guanako Liao [...] Procedure Summary Date: 10/02/24 Room / Location: [facility] OR [facility] MAIN OR Anesthesia Start: 1324 Anesthesia Stop: 1502 Procedure: DEBRIDEMENT SKIN, SUBCU, MUSCLE, LOWER EXTREMITY (WRVU 2.7) (Left) Diagnosis: (Infected LLE graft explant) Surgeons: Hermila Mccormick MD Responsible Provider: Kodi Richardson MD Anesthesia Type: general ASA Status: 4 All Anesthesia Providers: Anesthesiologist: Kodi Richardson MD BEE RANCHER: Dai Delgadillo CRNA Vitals Value Taken Time BP 145/89 10/02/24 1559 Temp 37.3 ??C (99.1 ??F) 10/02/24 1600 Pulse 80 10/02/24 1600 Resp 12 10/02/24 1600 SpO2 96 % 10/02/24 1559 Pain Level 0 10/02/24 1600 Vitals shown include unfiled device data. Patient Location: PACU/[facility] Level of Consciousness: Awake and Alert Pain [...] 2.7) performed by Taylor Ruiz MD at [facility] MAIN OR PRO DEBRIDEMENT SUBCUTANEOUS TISSUE 20 SQCM/< Left 09/27/2024 DEBRIDEMENT SKIN AND SUBCU, LOWER EXTREMITY (WRVU 1.01) performed by Hayley Torres MD at [facility] MAIN OR PRO DRAIN LOWER LEG DEEP ABSC/HEMATOMA Left 09/26/2024 INCISION & DRAINAGE, LEG OR ANKLE, DEEP ABSCESS OR HEMATOMA (WRVU 5.23) performed by Hayley Torres MD at [facility] OR [facility] ENDOSCOPY W/VIDEO-ASST VEIN HARVEST, CABG 01/04/2012 ENDOSCOPIC HARVEST VEIN(S) FOR CABG performed by INNA TOVAR at [facility] MAIN OR PRO EXCISION, INFEC GRAFT, EXTREMITY Left 09/26/2024 EXCISION OF INFECTED GRAFT FROM LOWER EXTREMITY (WRVU 9.53) performed by Hayley Torres MD at [facility] OR PRO EXCISION, INFEC GRAFT, EXTREMITY Left 09/28/2024 EXCISION OF INFECTED GRAFT FROM LOWER EXTREMITY (WRVU 9.53) performed by Hayley Torres MD at [facility] MAIN OR PRO EXPLORATION NOT FOLLOWED BY SURG LOWER EXTREMITY ARTERY Left 09/29/2024 @EXPLORATION W\O SURGICAL REPAIR, FEMORAL ARTERY - JENNIFER (WRVU 7.5) performed by Taylor Ruiz MD at [facility] MAIN [...] Extremity Vascular Surgery 07/20/2024 Taylor Ruiz MD [facility] INTERVENTIONL RAD Social History Tobacco Use [...] with patient. Plan discussed with attending and BEE RANCHER. Anesthesia Screening documented in this encounter Plan of Treatment Upcoming Encounters Date Type Department Care Team (Late st Contact Info) Description 11/09/2024 1:30 PM EST Office Visit [place] [phone] Isabela Hayward, CORPORATE BANKING OFFICER [facility] [place] [address] 11/10/2024 10:00 AM EST Office Visit [place] [phone] Dai Whitman, CORPORATE BANKING OFFICER 11/21/2024 2:15 PM EST Office Visit [place] [phone] Dayanara Grover MD [facility] [place] [address] documented as of this encounter Visit Diagnoses [...] mg documented in this encounter Care Teams Manager Scientific Relationship Specialty Start Date End Date Charles Romero [place] [address] PCP - General Internal Medicine 09/18/24 documented as of this encounter
--- OUTSIDE RECORDS SUMMARY | 2024-10-31 15:34 | XMS_ITS | Encounter Summary ---
Author Organization [facility] Address [facility] [place] [address] Care Team Providers Care Quail Farmer Name Role Phone Charles Romero Primary Care Provider + Encounter Details Date Type Department Care Team (Late st Contact Info) Description 09/29/2024 11:59 PM EST Anesthesia Event [place] [address] Penny Mathias MD [facility] [place] [address] Anesthesia Record Procedure Summary Procedure Name Responsible [...] by Heidi Mobley, RN NPWT 10/04/24; 1557; arnulfo r (see comments) (left groin, left upper thigh and left calf all Y'd to one vac); 1 black sponge in left groin, left upper thigh and left calf incision 10/04/24 1557 by Linda Pollock, sugar mixer 10/06/24; 0900; Left , anterior, distal; thigh; [...] = 0.6 oz pur e alcohol) [facility] Utilities Answer Date Recorded In the past 12 months has th e [email or web address], gas, oil, or water [employer] threatened to shut off services in your [...] [place] [facility] No 09/27/2024 IPV Inpatient Questions [...] PM EST Office [place] [address] Isabela Hayward, NON DESTRUCTIVE EVALUATION TECHNICIAN [facility] [place] [address] 11/10/2024 10:00 AM EST Office Visit Vascular Surgery at [place] [phone] Dai Whitman APRN 11/21/2024 2:15 PM EST Office [place] [address] Dayanara Grover MD [facility] [place] [address] documented as of this encounter Visit Diagnoses Not on filedocumented in this encounter Care Teams Quail Farmer Relationship Specialty Start Date End Date Charles Rom[place] [address] PCP - General Internal Medicine 11/11/24 documented as of this encounter
--- OUTSIDE RECORDS SUMMARY | 2024-10-31 15:34 | XMS_ITS | Encounter Summary ---
Author Organization [facility] [place] [address] Care Team Providers Care Business Banking Representative Name Role Phone Charles Romero Primary Care Provider + Reason for Visit * Auth/Cert (Routine) Specialty Diagnoses / Procedures Referred By William moses Referred To Contact Diagnoses Vascular graft infection, initial encounter Sepsis [A41.9] T82.7XXA Procedures EMERGENCY IPI Angel Gonsalez MD [facility] GENERAL [place] [address] [facility] Referral ID Status Reason Start Date Expiration Date Visits Re quested Visits Authorized [id number] 1 1 Encounter Details Date Type Department Care Team (Late st Contact Info) Description 10/02/2024 1:14 PM EST - 10/02/2024 2:48 PM EST [place] [address] Hermila Mccormick MD [facility] VASCULAR [place] [address] DEBRIDEMENT SKIN, SUBCU, MUSCLE, LOWER EXTREMITY (WRVU [...] Operations/Major Procedures: 09/26/24: Explant of infected LEFT CLASSER to below-knee popliteal artery PTFE bypass graft [...] 2nd toe amputation who was transferred from [facility] given concern for infected left fem-BK popliteal [...] pericardial patch and PTFE willard over the CLASSER was unincorporated. - Resection of prior femoral [...] 2 tablespoons of dried fruit. Milk and cp-atzjj-faxyg yogurt have 15 grams of carbs in a serving. A serving is 1 cup of milk or 3/4 cup (6 oz) of sw-kfwgj-jqkga yogurt. Starchy vegetables have 15 grams of carbs in a serving. A serving is ?? cup of mashed potatoes or sweet potato; 1 cup winter squash; ?? of a small baked potato; ?? cup of cooked beans; or ?? cup cooked corn or green peas. Learn how much carbs to eat each day and at each meal. A dietitian or certified solid waste facility operator can teach you how to keep track [...] was scheduled for a f/u nutrition evaluation. Dairy Store Manager met pt at bedside. Pt sharedthat his [...] Based on current findings- home (sister & tjboesy-hm-oda's home) Consult Recommendations: No other consults recommended [...] Loss: None Karolyn Hudson MD Vascular Surgery, 2834 10/09/24 Important Studies and Lab Data: Labs: [...] 05/29/2024, no significant changes. Procedure Limited - 20042. Doppler - 20812. Color Doppler - 73040. Suboptimal quality. This study is limited because [...] on series 3, image 8 and 641, 592, 321, 622. No other rim-enhancing fluid collection is seen. [...] PM Isabela Hayward APRN Infectious Disease at [facility] Arrive at: Home [phone] To view instructions for your video visit, click here, or visit this website: [email or web address] If you have not previously downloaded the [facility] patient portal software, [employer], please do so by clicking one of the links below or searching in your device's lobito store. [place] Self Representation Document Preparation devices 11/09/2024 1:30 PM Isabela Hayward APRN Infectious Disease at [facility] Arrive at: Advertising Vice President Area [phone] 11/21/2024 2:15 PM Dayanara Grover MD Endocrinology at [facility] Arrive at: Advertising Vice President Area 3A [phone] Future Orders Complete By Expires CBC (with Diff) [VOJ178 Custom] 10/17/2024 12/11/2024 Process Instructions: INCLUDES: WBC, RBC, Hgb, Hct, Platelets, RBC Indices and Differential Scheduling Instructions: Comments: Questions: OPAT: Order / Recommendation for Post Discharge IV Antibiotic Management [SWA135 CPT(R)] As directed Process Instructions: If no progress note charted, please enter Clinical details in comments. Scheduling Instructions: Comments: - If this order was signed greater than 72 hours prior to [facility] discharge, please call to confirm the accuracy of this order. [facility], [place] [address] FAX: - After hours, please contact the Infectious Disease Physician correction officer at . - Line care instructions - see flush/heparin orders. Facilities may follow organizational policies/practices regarding heparin. - custodial for medication administration/dietary supervisor and catheter care/maintenance authorized. - CVC/PICC Dressing Change weekly and PRN Please use CHG or Bio Patch RN: Please care for PICC line including dressing changes weekly and prn. Please draw labs every Wednesday and PRN and fax results to [facility] at [phone]. Please draw labs off [facility]ICC line. [facility]. Please RN visit for IV ABX teaching and ongoing assessment. Intermediate for Medication Administration/Hookup and catheter care/maintenance: - Teach Patient/Caregiver goals/self-monitoring/therapy administration to independence per the Nursing Care Plan. - custodial visit frequency; initial, weekly and 2 PRN [...] Amaya Hernandez MD Referral for Outpatient Antibiotics [RBE6556 CPT(R)] As directed Process Instructions: Scheduling Instructions: [...] admission to Home Health. [address] [facility] [address] Phone Number: [phone] (home) Date of : 1975 Inpatient DOCUMENTATION FOR VNA SERVICES (INCLUDING THOSE PATIENTS WITH MEDICARE COVERAGE REQUIRING HOME VNA SERVICES AND/OR HOSPICE SERVICES) PATIENT'S LOCATION: Geovanna Dixon Jr. [address] [facility] [address] [phone] (home) Cell: Telephone Information: Waste Elimination's Name: Geovanna In discussion with the attending physician, it is certified that this patient is under their care and that they, or a Nurse Practitioner, Clinical Nurse specialist or Physician Skid Wrapper who is working directly with them, had [...] for managing ADLs. HOME HEALTH CARE AGENCY: [facility]. [address] [place] [address] START OF CARE: within 24-48 hours of [...] Lab Work Interval Expires CBC (with Diff) [[id number] Custom] Once a week until 12/10/2024 12/10/2024 [...] For any problems or questions please call [phone] For issues on weeknights after 5pm and weekends please call [phone] and ask for the Vascular Fellow correction officer. Discharge Medications: Your Medications New Medications Dose [...] See Instructions). FLUSH PROTOCOL WITH MEDICATIONS ([facility]): Before med infusion: flush with NS 10 [...] See Instructions). FLUSH PROTOCOL WITH MEDICATIONS ([facility]): Before med infusion: flush with NS 10 [...] can get this completed at 3L at [facility] prior to your scheduled appointment. Stop atorvastatin [...] For any problems or questions please call [phone] For issues on weeknights after 5pm and weekends please call [phone] and ask for the Vascular Fellow correction officer. documented in this encounter Discharge Instructions [...] 2 tablespoons of dried fruit. Milk and xx-umlkx-pbkwk yogurt have 15 grams of carbs in a serving. A serving is 1 cup of milk or 3/4 cup (6 oz) of km-phgcq-zxahe yogurt. Starchy vegetables have 15 grams of carbs in a serving. A serving is ?? cup of mashed potatoes or sweet potato; 1 cup winter squash; ?? of a small baked potato; ?? cup of cooked beans; or ?? cup cooked corn or green peas. Learn how much carbs to eat each day and at each meal. A dietitian or certified solid waste facility operator can teach you how to keep track [...] can get this completed at 3L at [facility] prior to your scheduled appointment. Stop atorvastatin [...] For any problems or questions please call [phone] For issues on weeknights after 5pm and weekends please call [phone] and ask for the Vascular Fellow correction officer. documented in this encounter Medications at Time [...] See Instructions). FLUSH PROTOCOL WITH MEDICATIONS ([facility]): Before med infusion: flush with NS 10 [...] See Instructions). FLUSH PROTOCOL WITH MEDICATIONS ([facility]): Before med infusion: flush with NS 10 [...] to contact. Reviewed roles and responsibilities of CHEMICAL PROCESS ANALYST and infusion vendor. Contact information for ID and Vascular team/clinic, CHEMICAL PROCESS ANALYST and infusion vendor given to pt. Discussed f/u appointments in ID 5C clinic, telephone and tele health. Pt verbalized understanding. All questions answered. IV & PO ABX Medications: Daptomycin 700mg IV daily Start/anticipated end date: 10/10/24-11/10/24 CHEMICAL PROCESS ANALYST: Bao Infusion vendor: [facility] Care IV Access: 4 [...] 2 tablespoons of dried fruit. Milk and zo-ozhpu-rsnld yogurt have 15 grams of carbs in a serving. A serving is 1 cup of milk or 3/4 cup (6 oz) of hd-cvnku-tlkqz yogurt. Starchy vegetables have 15 grams of carbs in a serving. A serving is ?? cup of mashed potatoes or sweet potato; 1 cup winter squash; ?? of a small baked potato; ?? cup of cooked beans; or ?? cup cooked corn or green peas. Learn how much carbs to eat each day and at each meal. A dietitian or certified solid waste facility operator can teach you how to keep track [...] this time. OT to complete orders. Pager: [phone] Fabián Burrows OT 10/09/2024 Occupational Therapy Rehabilitation [...] Vital signs stable. Estimated Blood Loss: None Karoyln Hudson MD Vascular Surgery, 2151 10/09/24 * Terry Jimenez, PT - 10/09/2024 12:02 PM EST Physical Therapy Visit #2 Patient profile: Geovanna Dixon Jr. is a 49 y.o. male with a history of HTN, HLD, NSTEMI, CAD s/p CABG (12/2011), DM,obesity, PAD s/p L iliofem endart and L fem-BK pop bypass and L 2nd toe amputation who was transferred from [facility], 09/26/24 given concern for infected left fem-BK popliteal PTFE bypass. He is now s/p an explant of an infected left femoral-below knee popliteal artery bypass graft (09/26), I/D groin abscess (09/27), L GSV harvest, vein patch angioplasty, L CLASSER and BK pop w/ sartorius flap L fem, I/D, 09/29 L sartorius flap revision, vac change. 10/03/24 NPO at [facility] for OR wound exploration. Wound vac [...] He mentions he'll stay with sister and yvnunnl-or-lnc upon DC. Pt resting in bed upon [...] up with R and down with L, qtse-cf-uzqd. Balance: Sitting: NORMAL- EOB unsupported good postural [...] Based on current findings- home (sister & zsxmlha-hh-ssa's home) Consult Recommendations: No other consults recommended [...] 15 (TE-F) minutes TERRY JIMENEZ PT Pager: [phone] Physical Therapy Inpatient Rehabilitation Department * María [...] 2nd toe amputation who was transferred from [facility] given concern for infected left fem-BK popliteal [...] smoking 1 week ago. He presented to [facility] on 09/26 and went to the OR [...] Daily heparin (porcine) 5,000 Units Subcutaneous Q8H [facility] lidocaine 1 patch Transdermal Q24H [...] Procedure Component Value - Date/Time Blood culture [[id number]] (Abnormal) (Susceptibility) Collected: 09/26/24 1422 Lab Status: Edited Result - FINAL Specimen: Blood, Venous Updated: 10/07/24 0740 Blood Culture Methicillin Resistant Staphylococcus aureus Comment: detected by PCR Isolate saved. If future testing is required, contact the Microbiology Civil Estimator. Gram Stain Aerobic Bottle: Gram positive cocci in clusters Susceptibility Methicillin Resistant Staphylococcus aureus MINIMUM INHIBITORY CONCENTRATION VITEK 2 METHOD Clindamycin Resistant Daptomycin Susceptible Gentamicin Susceptible [1] Linezolid Susceptible Oxacillin Resistant Trimethoprim/Sulfa Susceptible Vancomycin Susceptible [1] Gentamicin is not appropriate for monotherapy for gram-positive infections. AFB culture [[id number]] Collected: 09/27/24 1654 Lab Status: Preliminary result Specimen: Tissue from Thigh, Left Updated: 10/05/24 1201 Acid Fast Bacilli Culture No acid fast bacilli isolated at 1 week. Acid Fast Stain No acid fast bacilli seen Blood culture [[id number]] Collected: 09/29/242123 Lab Status: Final result Specimen: Blood, Venous Updated: 10/04/24 2301 Blood Culture No growth at 120 hours Blood culture [[id number]] Collected: 09/29/242123 Lab Status: Final result Specimen: Blood, Venous Updated: 10/04/24 2301 Blood Culture No growth at 120 hours AFB culture [[id number]] Collected: 09/26/24 1702 Lab Status: Preliminary result Specimen: Abscess from Knee, Left Updated: 10/04/24 1201 Acid Fast Bacilli Culture No acid fast bacilli isolated at 1 week. Acid Fast Stain No acid fast bacilli seen Blood culture [[id number]] Collected: 09/28/24 1749 Lab Status: Final result [...] 2nd toe amputation who was transferred from [facility] given concern for infected left fem-BK popliteal PTFE bypass. He is now s/p an explantof an infected left femoral-below knee popliteal artery bypass graft (09/26), I/D groin abscess (), L GSV harvest, vein patch angioplasty, L CLASSER and BK pop w/ sartorius flap L fem, I/D, 09/29 L sartorius flap revision, vac change. 10/09/24: Progressing well post surgically. Will pull medial thigh drain today, retain sartorius flap drain along with wound vac x 3 sponges ([facility] has approved for home vac) and WTD [...] PRN PICC dressing change completed as per [facility] protocol. Positive pressure displacement connector (Max Plus) [...] 2nd toe amputation who was transferred from [facility] given concern for infected left fem-BK popliteal [...] smoking 1 week ago. He presented to [facility] on 09/26 and went to the OR [...] Procedure Component Value - Date/Time Blood culture [[id number]] (Abnormal) (Susceptibility) Collected: 09/26/24 1422 Lab Status: Edited Result - FINAL Specimen: Blood, Venous Updated: 10/07/24 0740 Blood Culture Methicillin Resistant Staphylococcus aureus Comment: detected by PCR Isolate saved. If future testing is required, contact the Microbiology Civil Estimator. Gram Stain Aerobic Bottle: Gram positive cocci in clusters Susceptibility Methicillin Resistant Staphylococcus aureus MINIMUM INHIBITORY CONCENTRATION VITEK 2 METHOD Clindamycin Resistant Daptomycin Susceptible Gentamicin Susceptible [1] Linezolid Susceptible Oxacillin Resistant Trimethoprim/Sulfa Susceptible Vancomycin Susceptible [1] Gentamicin is not appropriate for monotherapy for gram-positive infections. AFB culture [[id number]] Collected: 09/27/24 165 Lab Status: Preliminary result Specimen: Tissue from Thigh, Left Updated: 10/05/24 1201 Acid Fast Bacilli Culture No acid fast bacilli isolated at 1 week. Acid Fast Stain No acid fast bacilli seen Blood culture [[id number]] Collected: 09/29/242123 Lab Status: Final result Specimen: Blood, Venous Updated: 10/04/24 2301 Blood Culture No growth at 120 hours Blood culture [[id number]] Collected: 09/29/242123 Lab Status: Final result Specimen: Blood, Venous Updated: 10/04/24 2301 Blood Culture No growth at 120 hours AFB culture [[id number]] Collected: 09/26/24 1702 Lab Status: Preliminary result Specimen: Abscess from Knee, Left Updated: 10/04/24 1201 Acid Fast Bacilli Culture No acid fast bacilli isolated at 1 week. Acid Fast Stain No acid fast bacilli seen Blood culture [[id number]] Collected: 09/28/24 1749 Lab Status: Final result Specimen: Blood, Venous Updated: 10/03/24 1901 Blood Culture No growth at 120 hours Blood culture [[id number]] (Abnormal) Collected: 09/27/24 2133 Lab Status: Final result Specimen: Blood, Venous Updated: 10/02/24 0804 Blood Culture Methicillin Resistant Staphylococcus aureus Comment: Susceptibilities previously reported. Gram Stain Aerobic Bottle: Gram positive cocci in clusters Tissue Culture, Aerobic & Anaerobic [[id number]] Collected: 09/27/241653 Lab Status: Final result Specimen: Tissue from Thigh, Left Updated: 10/01/24 1554 Narrative: The following orders were created for panel order Tissue Culture, Aerobic & Anaerobic. Procedure Abnormality Status --------- ------ Tissue Culture, Aerobic ...[[id number]] Anaerobic Culture[[id number]] Final result Please view results for these tests on the individual orders. Anaerobic Culture [[id number]] Collected: 09/27/241653 Lab Status: Final result Specimen: Tissue from Thigh, Left Updated: 10/01/24 1554 Anaerobic Culture No anaerobic organisms isolated Tissue Culture, Aerobic Only [[id number]] (Abnormal) (Susceptibility) Collected: 09/27/241653 Lab Status: Final [...] 2nd toe amputation who was transferred from [facility] given concern for infected left fem-BK popliteal PTFE bypass. He is now s/p an explantof an infected left femoral-below knee popliteal artery bypass graft (09/26), I/D groin abscess (), L GSV harvest, vein patch angioplasty, L CLASSER and BK pop w/ sartorius flap L [...] 81mg daily Vibha Benson APRN 10/08/2024 Pager: [phone] * Vibha Benson APRN - 10/07/2024 8:52 AM EST Images from the original note were not included. Vascular Surgery Progress Note Geovanna Dixon Jr. is a 49 y.o. male with history of HTN, HLD, NSTEMI, CAD s/p CABG (12/2011), DM, obesity, PAD s/p L iliofem endart and L fem-BK pop bypass and L 2nd toe amputation who was transferred from [facility] given concern for infected left fem-BK popliteal [...] smoking 1 week ago. He presented to [facility] on 09/26 and went to the OR [...] Procedure Component Value - Date/Time Blood culture [[id number]] (Abnormal) (Susceptibility) Collected: 09/26/24 1422 Lab Status: Edited Result - FINAL Specimen: Blood, Venous Updated: 10/07/24 0740 Blood Culture Methicillin Resistant Staphylococcus aureus Comment: detected by PCR Isolate saved. If future testing is required, contact the Microbiology Civil Estimator. Gram Stain Aerobic Bottle: Gram positive cocci in clusters Susceptibility Methicillin Resistant Staphylococcus aureus MINIMUM INHIBITORY CONCENTRATION VITEK 2 METHOD Clindamycin Resistant Daptomycin Susceptible Gentamicin Susceptible [1] Linezolid Susceptible Oxacillin Resistant Trimethoprim/Sulfa Susceptible Vancomycin Susceptible [1] Gentamicin is not appropriate for monotherapy for gram-positive infections. AFB culture [[id number]] Collected: 09/27/24 1654 Lab Status: Preliminary result Specimen: Tissue from Thigh, Left Updated: 10/05/24 1201 Acid Fast Bacilli Culture No acid fast bacilli isolated at 1 week. Acid Fast Stain No acid fast bacilli seen Blood culture [[id number]] Collected: 09/29/242123 Lab Status: Final result Specimen: Blood, Venous Updated: 10/04/24 2301 Blood Culture No growth at 120 hours Blood culture [[id number]] Collected: 09/29/242123 Lab Status: Final result Specimen: Blood, Venous Updated: 10/04/24 2301 Blood Culture No growth at 120 hours AFB culture [[id number]] Collected: 09/26/24 1702 Lab Status: Preliminary result Specimen: Abscess from Knee, Left Updated: 10/04/24 1201 Acid Fast Bacilli Culture No acid fast bacilli isolated at 1 week. Acid Fast Stain No acid fast bacilli seen Blood culture [[id number]] Collected: 09/28/24 1749 Lab Status: Final result Specimen: Blood, Venous Updated: 10/03/24 1901 Blood Culture No growth at 120 hours Blood culture [[id number]] (Abnormal) Collected: 09/27/24 2133 Lab Status: Final result Specimen: Blood, Venous Updated: 10/02/24 0804 Blood Culture Methicillin Resistant Staphylococcus aureus Comment: Susceptibilities previously reported. Gram Stain Aerobic Bottle: Gram positive cocci in clusters Tissue Culture, Aerobic & Anaerobic [[id number]] Collected: 09/27/24 165 Lab Status: Final result Specimen: Tissue from Thigh, Left Updated: 10/01/24 1554 Narrative: The following orders were created for panel order Tissue Culture, Aerobic & Anaerobic. Procedure Abnormality Status --------- ------ Tissue Culture, Aerobic ...[[id number]] Anaerobic Culture[[id number]] Final result Please view results for these tests on the individual orders. Anaerobic Culture [[id number]] Collected: 09/27/24 165 Lab Status: Final result Specimen: Tissue from Thigh, Left Updated: 10/01/24 1554 Anaerobic Culture No anaerobic organisms isolated Tissue Culture, Aerobic Only [[id number]] (Abnormal) (Susceptibility) Collected: 09/27/24 165 Lab Status: [...] is considered susceptible to doxycycline. Blood culture [[id number]] (Abnormal) Collected: 09/26/24 1845 Lab Status: Final result Specimen: Blood, Venous Updated: 10/01/24 0658 Blood Culture Methicillin Resistant Staphylococcus aureus Comment: isolated. Susceptibilities previously reported. Gram Stain Aerobic Bottle: Gram positive cocci in clusters Abscess/Wound Aspirate Culture, Aerobic & Anaerobic [[id number]] (Abnormal) Collected: 09/26/241649 Lab Status: Final result Specimen: Abscess from Groin, Left Updated: 09/30/24 155 Narrative: The following orders were created for panel order Abscess/Wound Aspirate Culture, Aerobic & Anaerobic. Procedure Abnormality Status --------- ------ Abscess/Wound Aspirate C...[[id number]] Abnormal Final result Anaerobic Culture[[id number]] Final result Please view results for these tests on the individual orders. Anaerobic Culture [[id number]] Collected: 09/26/24 165 Lab Status: Final result Specimen: Abscess from Groin, Left Updated: 09/30/24 1551 Anaerobic Culture No anaerobic organisms isolated Abscess/Wound Aspirate Culture, Aerobic & Anaerobic [[id number]] (Abnormal) Collected: 09/26/24 1702 Lab Status: Final result Specimen: Abscess from Knee, Left Updated: 09/30/24 1551 Narrative: The following orders were created for panel order Abscess/Wound Aspirate Culture, Aerobic & Anaerobic. Procedure Abnormality Status --------- ------ Abscess/Wound Aspirate C...[[id number]] Abnormal Final result Anaerobic Culture[[id number]] Final result Please view results for these tests on the individual orders. Anaerobic Culture [[id number]] Collected: 09/26/24 1702 Lab Status: Final result Specimen: Abscess from Knee, Left Updated: 09/30/24 1551 Anaerobic Culture No anaerobic organisms isolated Sonicated Tissue/Implant Culture [[id number]] (Abnormal) Collected: 09/26/24 1716 Lab Status: Final result Specimen: Vascular Graft from Leg, Left Updated: 09/30/24 1349 Sonicated Tissue/Implant Culture Methicillin Resistant Staphylococcus aureus Comment: isolated from broth culture. Susceptibilities previously reported. Abscess/Wound Aspirate Culture, Aerobic Only [[id number]] (Abnormal) (Susceptibility) Collected: 09/26/24 1702 Lab Status: [...] to doxycycline. Abscess/Wound Aspirate Culture, Aerobic Only [[id number]] (Abnormal) (Susceptibility) Collected: 09/26/24 1650 Lab Status: [...] 2nd toe amputation who was transferred from [facility] given concern for infected left fem-BK popliteal PTFE bypass. He is now s/p an explantof an infected left femoral-below knee popliteal artery bypass graft (09/26), I/D groin abscess (), L GSV harvest, vein patch angioplasty, L CLASSER and BK pop w/ sartorius flap L [...] 81mg daily Vibha Benson APRN 10/07/2024 Pager: [phone] * Karina-Jessica Mcrae, PT - 10/06/2024 3:21 PM EST 10/06/24 4776 Evaluation & Treatment Document Type contact Comment, [...] 2nd toe amputation who was transferred from [facility] given concern for infected left fem-BK popliteal [...] smoking 1 week ago. He presented to [facility] on 09/26 and went to the OR [...] Procedure Component Value - Date/Time AFB culture [[id number]] Collected: 09/27/241653 Lab Status: Preliminary result Specimen: Tissue from Thigh, Left Updated: 10/05/24 1201 Acid Fast Bacilli Culture No acid fast bacilli isolated at 1 week. Acid Fast Stain No acid fast bacilli seen Blood culture [[id number]] Collected: 09/29/242123 Lab Status: Final result Specimen: Blood, Venous Updated: 10/04/24 2301 Blood Culture No growth at 120 hours Blood culture [[id number]] Collected: 09/29/242123 Lab Status: Final result Specimen: Blood, Venous Updated: 10/04/24 2301 Blood Culture No growth at 120 hours AFB culture [[id number]] Collected: 09/26/24 170 Lab Status: Preliminary result Specimen: Abscess from Knee, Left Updated: 10/04/24 1201 Acid Fast Bacilli Culture No acid fast bacilli isolated at 1 week. Acid Fast Stain No acid fast bacilli seen Blood culture [[id number]] Collected: 09/28/24 1749 Lab Status: Final result Specimen: Blood, Venous Updated: 10/03/24 1901 Blood Culture No growth at 120 hours Blood culture [[id number]] (Abnormal) Collected: 09/27/242132 Lab Status: Final result Specimen: Blood, Venous Updated: 10/02/24 0804 Blood Culture Methicillin Resistant Staphylococcus aureus Comment: Susceptibilities previously reported. Gram Stain Aerobic Bottle: Gram positive cocci in clusters Tissue Culture, Aerobic & Anaerobic [[id number]] Collected: 09/27/241653 Lab Status: Final result Specimen: Tissue from Thigh, Left Updated: 10/01/24 1554 Narrative: The following orders were created for panel order Tissue Culture, Aerobic & Anaerobic. Procedure Abnormality Status --------- ------ Tissue Culture, Aerobic ...[[id number]] Anaerobic Culture[[id number]] Final result Please view results for these tests on the individual orders. Anaerobic Culture [[id number]] Collected: 09/27/241653 Lab Status: Final result Specimen: Tissue from Thigh, Left Updated: 10/01/24 1554 Anaerobic Culture No anaerobic organisms isolated Tissue Culture, Aerobic Only [[id number]] (Abnormal) (Susceptibility) Collected: 09/27/24 1654 Lab Status: [...] is considered susceptible to doxycycline. Blood culture [[id number]] (Abnormal) (Susceptibility) Collected: 09/26/24 1422 Lab Status: Edited Specimen: Blood, Venous Updated: 10/01/24 0658 Blood Culture Methicillin Resistant Staphylococcus aureus Comment: detected by PCR Isolate saved. If future testing is required, contact the Microbiology Civil Estimator. Gram Stain Aerobic Bottle: Gram positive cocci in clusters Susceptibility Methicillin Resistant Staphylococcus aureus VITEK 2 METHOD Clindamycin Resistant Gentamicin Susceptible [1] Linezolid Susceptible Oxacillin Resistant Trimethoprim/Sulfa Susceptible Vancomycin Susceptible [1] Gentamicin is not appropriate for monotherapy for gram-positive infections. Blood culture [[id number]] (Abnormal) Collected: 09/26/24 1845 Lab Status: Final result Specimen: Blood, Venous Updated: 10/01/24 0658 Blood Culture Methicillin Resistant Staphylococcus aureus Comment: isolated. Susceptibilities previously reported. Gram Stain Aerobic Bottle: Gram positive cocci in clusters Abscess/Wound Aspirate Culture, Aerobic & Anaerobic [[id number]] (Abnormal) Collected: 09/26/24 165 Lab Status: Final result Specimen: Abscess from Groin, Left Updated: 09/30/24 1551 Narrative: The following orders were created for panel order Abscess/Wound Aspirate Culture, Aerobic & Anaerobic. Procedure Abnormality Status --------- ------ Abscess/Wound Aspirate C...[[id number]] Abnormal Final result Anaerobic Culture[[id number]] Final result Please view results for these tests on the individual orders. Anaerobic Culture [[id number]] Collected: 09/26/24 165 Lab Status: Final result Specimen: Abscess from Groin, Left Updated: 09/30/24 1551 Anaerobic Culture No anaerobic organisms isolated Abscess/Wound Aspirate Culture, Aerobic & Anaerobic [[id number]] (Abnormal) Collected: 09/26/24 170 Lab Status: Final result Specimen: Abscess from Knee, Left Updated: 09/30/24 1551 Narrative: The following orders were created for panel order Abscess/Wound Aspirate Culture, Aerobic & Anaerobic. Procedure Abnormality Status --------- ------ Abscess/Wound Aspirate C...[[id number]] Abnormal Final result Anaerobic Culture[[id number]] Final result Please view results for these tests on the individual orders. Anaerobic Culture [[id number]] Collected: 09/26/24 170 Lab Status: Final result Specimen: Abscess from Knee, Left Updated: 09/30/24 1551 Anaerobic Culture No anaerobic organisms isolated Sonicated Tissue/Implant Culture [[id number]] (Abnormal) Collected: 09/26/24 1716 Lab Status: Final result Specimen: Vascular Graft from Leg, Left Updated: 09/30/24 1349 Sonicated Tissue/Implant Culture Methicillin Resistant Staphylococcus aureus Comment: isolated from broth culture. Susceptibilities previously reported. Abscess/Wound Aspirate Culture, Aerobic Only [[id number]] (Abnormal) (Susceptibility) Collected: 09/26/24 170 Lab Status: [...] to doxycycline. Abscess/Wound Aspirate Culture, Aerobic Only [[id number]] (Abnormal) (Susceptibility) Collected: 09/26/24 1650 Lab Status: [...] 2nd toe amputation who was transferred from [facility] given concern for infected left fem-BK popliteal PTFE bypass. He is now s/p an explantof an infected left femoral-below knee popliteal artery bypass graft (09/26), I/D groin abscess (), L GSV harvest, vein patch angioplasty, L CLASSER and BK pop w/ sartorius flap L [...] 81mg daily Benjamin Iniguez MD 10/06/2024 Pager: [phone] * Benjamin Iniguez MD - 10/05/2024 7:42 AM EST Images from the original note were not included. Vascular Surgery Progress Note Geovanna Dixon Jr. is a 49 y.o. male with history of HTN, HLD, NSTEMI, CAD s/p CABG (12/2011), DM, obesity, PAD s/p L iliofem endart and L fem-BK pop bypass and L 2nd toe amputation who was transferred from [facility] given concern for infected left fem-BK popliteal [...] smoking 1 week ago. He presented to [facility] on 09/26 and went to the OR [...] BID insulin lispro 1-6 Units Subcutaneous Q4H [facility] insulin lispro 0-11 Units Subcutaneous [...] Procedure Component Value - Date/Time Blood culture [[id number]] Collected: 09/29/242123 Lab Status: Final result Specimen: Blood, Venous Updated: 10/04/24 230 Blood Culture No growth at 120 hours Blood culture [[id number]] Collected: 09/29/242123 Lab Status: Final result Specimen: Blood, Venous Updated: 10/04/24 230 Blood Culture No growth at 120 hours AFB culture [[id number]] Collected: 09/26/24 1702 Lab Status: Preliminary result Specimen: Abscess from Knee, Left Updated: 10/04/24 1201 Acid Fast Bacilli Culture No acid fast bacilli isolated at 1 week. Acid Fast Stain No acid fast bacilli seen Blood culture [[id number]] Collected: 09/28/24 1749 Lab Status: Final result Specimen: Blood, Venous Updated: 10/03/24 1901 Blood Culture No growth at 120 hours Blood culture [[id number]] (Abnormal) Collected: 09/27/242132 Lab Status: Final result Specimen: Blood, Venous Updated: 10/02/24 0804 Blood Culture Methicillin Resistant Staphylococcus aureus Comment: Susceptibilities previously reported. Gram Stain Aerobic Bottle: Gram positive cocci in clusters Tissue Culture, Aerobic & Anaerobic [[id number]] Collected: 09/27/241653 Lab Status: Final result Specimen: Tissue from Thigh, Left Updated: 10/01/24 1554 Narrative: The following orders were created for panel order Tissue Culture, Aerobic & Anaerobic. Procedure Abnormality Status --------- ------ Tissue Culture, Aerobic ...[[id number]] Anaerobic Culture[[id number]] Final result Please view results for these tests on the individual orders. Anaerobic Culture [[id number]] Collected: 09/27/241653 Lab Status: Final result Specimen: Tissue from Thigh, Left Updated: 10/01/24 1554 Anaerobic Culture No anaerobic organisms isolated Tissue Culture, Aerobic Only [[id number]] (Abnormal) (Susceptibility) Collected: 09/27/241653 Lab Status: Final [...] is considered susceptible to doxycycline. Blood culture [[id number]] (Abnormal) (Susceptibility) Collected: 09/26/24 1422 Lab Status: Final result Specimen: Blood, Venous Updated: 10/01/24 0658 Blood Culture Methicillin Resistant Staphylococcus aureus Comment: detected by PCR Isolate saved. If future testing is required, contact the Microbiology Civil Estimator. Gram Stain Aerobic Bottle: Gram positive cocci in clusters Susceptibility Methicillin Resistant Staphylococcus aureus VITEK 2 METHOD Clindamycin Resistant Gentamicin Susceptible [1] Linezolid Susceptible Oxacillin Resistant Trimethoprim/Sulfa Susceptible Vancomycin Susceptible [1] Gentamicin is not appropriate for monotherapy for gram-positive infections. Blood culture [[id number]] (Abnormal) Collected: 09/26/24 1845 Lab Status: Final result Specimen: Blood, Venous Updated: 10/01/24 0658 Blood Culture Methicillin Resistant Staphylococcus aureus Comment: isolated. Susceptibilities previously reported. Gram Stain Aerobic Bottle: Gram positive cocci in clusters Abscess/Wound Aspirate Culture, Aerobic & Anaerobic [[id number]] (Abnormal) Collected: 09/26/241649 Lab Status: Final result Specimen: Abscess from Groin, Left Updated: 09/30/24 1551 Narrative: The following orders were created for panel order Abscess/Wound Aspirate Culture, Aerobic & Anaerobic. Procedure Abnormality Status --------- ------ Abscess/Wound Aspirate C...[[id number]] Abnormal Final result Anaerobic Culture[[id number]] Final result Please view results for these tests on the individual orders. Anaerobic Culture [[id number]] Collected: 09/26/241649 Lab Status: Final result Specimen: Abscess from Groin, Left Updated: 09/30/24 1551 Anaerobic Culture No anaerobic organisms isolated Abscess/Wound Aspirate Culture, Aerobic & Anaerobic [[id number]] (Abnormal) Collected: 09/26/24 170 Lab Status: Final result Specimen: Abscess from Knee, Left Updated: 09/30/24 1551 Narrative: The following orders were created for panel order Abscess/Wound Aspirate Culture, Aerobic & Anaerobic. Procedure Abnormality Status --------- ------ Abscess/Wound Aspirate C...[[id number]] Abnormal Final result Anaerobic Culture[[id number]] Final result Please view results for these tests on the individual orders. Anaerobic Culture [[id number]] Collected: 09/26/24 170 Lab Status: Final result Specimen: Abscess from Knee, Left Updated: 09/30/24 1551 Anaerobic Culture No anaerobic organisms isolated Sonicated Tissue/Implant Culture [[id number]] (Abnormal) Collected: 09/26/24 1716 Lab Status: Final result Specimen: Vascular Graft from Leg, Left Updated: 09/30/24 1349 Sonicated Tissue/Implant Culture Methicillin Resistant Staphylococcus aureus Comment: isolated from broth culture. Susceptibilities previously reported. Abscess/Wound Aspirate Culture, Aerobic Only [[id number]] (Abnormal) (Susceptibility) Collected: 09/26/24 170 Lab Status: [...] to doxycycline. Abscess/Wound Aspirate Culture, Aerobic Only [[id number]] (Abnormal) (Susceptibility) Collected: 09/26/24 165 Lab Status: [...] is considered susceptible to doxycycline. AFB culture [[id number]] Collected: 09/27/241653 Lab Status: Preliminary result Specimen: Tissue from Thigh, Left Updated: 09/29/24 1201 Acid Fast Bacilli Culture No acid fast bacilli isolated to date. Acid Fast Stain No acid fast bacilli seen Fungus culture [[id number]] Collected: 09/27/241653 Lab Status: Preliminary result Specimen: [...] 2nd toe amputation who was transferred from [facility] given concern for infected left fem-BK popliteal PTFE bypass. He is now s/p an explantof an infected left femoral-below knee popliteal artery bypass graft (09/26), I/D groin abscess (), L GSV harvest, vein patch angioplasty, L CLASSER and BK pop w/ sartorius flap L [...] 81mg daily Benjamin Iniguez MD 10/05/2024 Pager: [phone] Associated attestation - Hayley Torres MD - [...] aspirate- MRSA Antimicrobials: Vancomycin- Imaging/diagnostics: CT lower [id number]/20 IMPRESSION: 1. Interval explant of LEFT femoral [...] male who underwent a left lower extremity vrdfubi-av-wqhnt-kneepopliteal artery bypass on August 01, 2024, and [...] concerns. Please page ID Green team (pager [phone]) with questions or concerns. Lynne Leavitt MD Fellow, Infectious Disease Pager: [phone] Epic Chat 10/02/2024 This note was created using Virtual View App) voice recognition software. Associated attestation - Amaya [...] Procedure Component Value - Date/Time Blood culture [[id number]] Collected: 09/29/242123 Lab Status: Final result Specimen: Blood, Venous Updated: 10/04/24 2301 Blood Culture No growth at 120 hours Blood culture [[id number]] Collected: 09/29/242123 Lab Status: Final result Specimen: Blood, Venous Updated: 10/04/24 2301 Blood Culture No growth at 120 hours AFB culture [[id number]] Collected: 09/26/24 170 Lab Status: Preliminary result Specimen: Abscess from Knee, Left Updated: 10/04/24 120 Acid Fast Bacilli Culture No acid fast bacilli isolated at 1 week. Acid Fast Stain No acid fast bacilli seen Blood culture [[id number]] Collected: 09/28/24 174 Lab Status: Final result Specimen: Blood, Venous Updated: 10/03/24 1901 Blood Culture No growth at 120 hours Blood culture [[id number]] (Abnormal) Collected: 09/27/242132 Lab Status: Final result Specimen: Blood, Venous Updated: 10/02/24 0804 Blood Culture Methicillin Resistant Staphylococcus aureus Comment: Susceptibilities previously reported. Gram Stain Aerobic Bottle: Gram positive cocci in clusters Tissue Culture, Aerobic & Anaerobic [[id number]] Collected: 09/27/241653 Lab Status: Final result Specimen: Tissue from Thigh, Left Updated: 10/01/24 155 Narrative: The following orders were created for panel order Tissue Culture, Aerobic & Anaerobic. Procedure Abnormality Status --------- ------ Tissue Culture, Aerobic ...[[id number]] Anaerobic Culture[[id number]] Final result Please view results for these tests on the individual orders. Anaerobic Culture [[id number]] Collected: 09/27/241653 Lab Status: Final result Specimen: Tissue from Thigh, Left Updated: 10/01/24 155 Anaerobic Culture No anaerobic organisms isolated Tissue Culture, Aerobic Only [[id number]] (Abnormal) (Susceptibility) Collected: 11/20/24 1654 Lab Status: [...] is considered susceptible to doxycycline. Blood culture [[id number]] (Abnormal) (Susceptibility) Collected: 09/26/24 1422 Lab Status: Final result Specimen: Blood, Venous Updated: 10/01/24 0658 Blood Culture Methicillin Resistant Staphylococcus aureus Comment: detected by PCR Isolate saved. If future testing is required, contact the Microbiology Civil Estimator. Gram Stain Aerobic Bottle: Gram positive cocci in clusters Susceptibility Methicillin Resistant Staphylococcus aureus VITEK 2 METHOD Clindamycin >=8.0 ug/ml Resistant Gentamicin <=0.5 ug/ml Susceptible [1] Linezolid 2.0 ug/ml Susceptible Oxacillin >=4.0 ug/ml Resistant Trimethoprim/Sulfa <=10.0 ug/ml Susceptible Vancomycin 1.0 ug/ml Susceptible [1] Gentamicin is not appropriate for monotherapy for gram-positive infections. Blood culture [[id number]] (Abnormal) Collected: 09/26/24 1845 Lab Status: Final result Specimen: Blood, Venous Updated: 10/01/24 0658 Blood Culture Methicillin Resistant Staphylococcus aureus Comment: isolated. Susceptibilities previously reported. Gram Stain Aerobic Bottle: Gram positive cocci in clusters Abscess/Wound Aspirate Culture, Aerobic & Anaerobic [[id number]] (Abnormal) Collected: 09/26/24 1650 Lab Status: Final result Specimen: Abscess from Groin, Left Updated: 09/30/24 1551 Narrative: The following orders were created for panel order Abscess/Wound Aspirate Culture, Aerobic & Anaerobic. Procedure Abnormality Status --------- ------ Abscess/Wound Aspirate C...[[id number]] Abnormal Final result Anaerobic Culture[[id number]] Final result Please view results for these tests on the individual orders. Anaerobic Culture [[id number]] Collected: 09/26/24 1650 Lab Status: Final result Specimen: Abscess from Groin, Left Updated: 09/30/24 1551 Anaerobic Culture No anaerobic organisms isolated Abscess/Wound Aspirate Culture, Aerobic & Anaerobic [[id number]] (Abnormal) Collected: 09/26/24 1702 Lab Status: Final result Specimen: Abscess from Knee, Left Updated: 09/30/24 1551 Narrative: The following orders were created for panel order Abscess/Wound Aspirate Culture, Aerobic & Anaerobic. Procedure Abnormality Status --------- ------ Abscess/Wound Aspirate C...[[id number]] Abnormal Final result Anaerobic Culture[[id number]] Final result Please view results for these tests on the individual orders. Anaerobic Culture [[id number]] Collected: 09/26/24 170 Lab Status: Final result Specimen: Abscess from Knee, Left Updated: 09/30/24 1551 Anaerobic Culture No anaerobic organisms isolated Sonicated Tissue/Implant Culture [[id number]] (Abnormal) Collected: 09/26/24 1716 Lab Status: Final result Specimen: Vascular Graft from Leg, Left Updated: 09/30/24 1349 Sonicated Tissue/Implant Culture Methicillin Resistant Staphylococcus aureus Comment: isolated from broth culture. Susceptibilities previously reported. Abscess/Wound Aspirate Culture, Aerobic Only [[id number]] (Abnormal) (Susceptibility) Collected: 09/26/24 1702 Lab Status: [...] to doxycycline. Abscess/Wound Aspirate Culture, Aerobic Only [[id number]] (Abnormal) (Susceptibility) Collected: 09/26/241649 Lab Status: Final [...] is considered susceptible to doxycycline. AFB culture [[id number]] Collected: 09/27/241653 Lab Status: Preliminary result Specimen: Tissue from Thigh, Left Updated: 09/29/24 1201 Acid Fast Bacilli Culture No acid fast bacilli isolated to date. Acid Fast Stain No acid fast bacilli seen Fungus culture [[id number]] Collected: 09/27/241653 Lab Status: Preliminary result Specimen: [...] for consulting infectious diseases. Amaya Hernandez MD, [facility] Infectious Diseases Staff Physician [...] Diet NPO Monitoring: Q4 Fawn Cunningham APRN [facility] Endocrinology Diabetes Management Pager [phone] Weekends please page [phone] minutes were spent over the course [...] 2nd toe amputation who was transferred from [facility] given concern for infected left fem-BK popliteal [...] smoking 1 week ago. He presented to [facility] on 09/26 and went to the OR [...] Procedure Component Value - Date/Time Blood culture [[id number]] Collected: 09/29/242123 Lab Status: Preliminary result Specimen: Blood, Venous Updated: 10/03/24 230 Blood Culture No growth at 96 hours Blood culture [[id number]] Collected: 09/29/242123 Lab Status: Preliminary result Specimen: Blood, Venous Updated: 10/03/24 2301 Blood Culture No growth at 96 hours Blood culture [[id number]] Collected: 09/28/24 1749 Lab Status: Final result Specimen: Blood, Venous Updated: 10/03/24 1901 Blood Culture No growth at 120 hours Blood culture [[id number]] (Abnormal) Collected: 09/27/24 213 Lab Status: Final result Specimen: Blood, Venous Updated: 10/02/24 0804 Blood Culture Methicillin Resistant Staphylococcus aureus Comment: Susceptibilities previously reported. Gram Stain Aerobic Bottle: Gram positive cocci in clusters Tissue Culture, Aerobic & Anaerobic [[id number]] Collected: 09/27/24 1654 Lab Status: Final result Specimen: Tissue from Thigh, Left Updated: 10/01/24 1554 Narrative: The following orders were created for panel order Tissue Culture, Aerobic & Anaerobic. Procedure Abnormality Status --------- ------ Tissue Culture, Aerobic ...[[id number]] Anaerobic Culture[[id number]] Final result Please view results for these tests on the individual orders. Anaerobic Culture [[id number]] Collected: 09/27/24 165 Lab Status: Final result Specimen: Tissue from Thigh, Left Updated: 10/01/24 1554 Anaerobic Culture No anaerobic organisms isolated Tissue Culture, Aerobic Only [[id number]] (Abnormal) (Susceptibility) Collected: 09/27/24 165 Lab Status: [...] is considered susceptible to doxycycline. Blood culture [[id number]] (Abnormal) (Susceptibility) Collected: 09/26/24 1422 Lab Status: Final result Specimen: Blood, Venous Updated: 10/01/24 0658 Blood Culture Methicillin Resistant Staphylococcus aureus Comment: detected by PCR Isolate saved. If future testing is required, contact the Microbiology Civil Estimator. Gram Stain Aerobic Bottle: Gram positive cocci in clusters Susceptibility Methicillin Resistant Staphylococcus aureus VITEK 2 METHOD Clindamycin Resistant Gentamicin Susceptible [1] Linezolid Susceptible Oxacillin Resistant Trimethoprim/Sulfa Susceptible Vancomycin Susceptible [1] Gentamicin is not appropriate for monotherapy for gram-positive infections. Blood culture [[id number]] (Abnormal) Collected: 09/26/24 1845 Lab Status: Final result Specimen: Blood, Venous Updated: 10/01/24 0658 Blood Culture Methicillin Resistant Staphylococcus aureus Comment: isolated. Susceptibilities previously reported. Gram Stain Aerobic Bottle: Gram positive cocci in clusters Abscess/Wound Aspirate Culture, Aerobic & Anaerobic [[id number]] (Abnormal) Collected: 09/26/24 1650 Lab Status: Final result Specimen: Abscess from Groin, Left Updated: 09/30/24 1551 Narrative: The following orders were created for panel order Abscess/Wound Aspirate Culture, Aerobic & Anaerobic. Procedure Abnormality Status --------- ------ Abscess/Wound Aspirate C...[[id number]] Abnormal Final result Anaerobic Culture[[id number]] Final result Please view results for these tests on the individual orders. Anaerobic Culture [[id number]] Collected: 09/26/24 1650 Lab Status: Final result Specimen: Abscess from Groin, Left Updated: 09/30/24 1551 Anaerobic Culture No anaerobic organisms isolated Abscess/Wound Aspirate Culture, Aerobic & Anaerobic [[id number]] (Abnormal) Collected: 09/26/24 1702 Lab Status: Final result Specimen: Abscess from Knee, Left Updated: 09/30/24 1551 Narrative: The following orders were created for panel order Abscess/Wound Aspirate Culture, Aerobic & Anaerobic. Procedure Abnormality Status --------- ------ Abscess/Wound Aspirate C...[[id number]] Abnormal Final result Anaerobic Culture[[id number]] Final result Please view results for these tests on the individual orders. Anaerobic Culture [[id number]] Collected: 09/26/24 1702 Lab Status: Final result Specimen: Abscess from Knee, Left Updated: 09/30/24 1551 Anaerobic Culture No anaerobic organisms isolated Sonicated Tissue/Implant Culture [[id number]] (Abnormal) Collected: 09/26/24 1716 Lab Status: Final result Specimen: Vascular Graft from Leg, Left Updated: 09/30/24 1349 Sonicated Tissue/Implant Culture Methicillin Resistant Staphylococcus aureus Comment: isolated from broth culture. Susceptibilities previously reported. Abscess/Wound Aspirate Culture, Aerobic Only [[id number]] (Abnormal) (Susceptibility) Collected: 09/26/24 1702 Lab Status: [...] to doxycycline. Abscess/Wound Aspirate Culture, Aerobic Only [[id number]] (Abnormal) (Susceptibility) Collected: 09/26/24 1650 Lab Status: [...] is considered susceptible to doxycycline. AFB culture [[id number]] Collected: 09/27/24 165 Lab Status: Preliminary result Specimen: Tissue from Thigh, Left Updated: 09/29/24 1201 Acid Fast Bacilli Culture No acid fast bacilli isolated to date. Acid Fast Stain No acid fast bacilli seen AFB culture [[id number]] Collected: 09/26/24 1702 Lab Status: Preliminary result Specimen: Abscess from Knee, Left Updated: 09/29/24 1201 Acid Fast Bacilli Culture No acid fast bacilli isolated to date. Acid Fast Stain No acid fast bacilli seen Fungus culture [[id number]] Collected: 09/27/24 1654 Lab Status: Preliminary result Specimen: Tissue from Thigh, Left Updated: 09/28/24 0748 Fungus Culture No fungus isolated to date MRSA PCR Screen [[id number]] (Abnormal) Collected: 09/27/24 0751 Lab Status: Final result Specimen: Swab from Nares Updated: 09/27/24 1156 MRSA PCR Detected Narrative: This test was performed using the Xpert MRSA NxG test kit and is run on the [employer]plified GeneXpert Dx System. This test is cleared by the [place] Food and Drug Administration for clinical use and its performance characteristics have been verified by the [facility] at [facility]. New Studies: - None Assessment & Plan: Geovanna Dixon Jr. is a 49 y.o. male with a history of HTN, HLD, NSTEMI, CAD s/p CABG (12/2011), DM,obesity, PAD s/p L iliofem endart and L fem-BK pop bypass and L 2nd toe amputation who was transferred from [facility] given concern for infected left fem-BK popliteal PTFE bypass. He is now s/p an explantof an infected left femoral-below knee popliteal artery bypass graft (09/26), I/D groin abscess (), L GSV harvest, vein patch angioplasty, L CLASSER and BK pop w/ sartorius flap L [...] 81mg daily Benjamin Iniguez MD 10/04/2024 Pager: [phone] Associated attestation - Hayley Torres MD - [...] OR tomorrow for wound vac wash out. Mnedez discontinued this morning, voiding independently. Will continue [...] was scheduled for a f/u nutrition evaluation. Dairy Store Manager met pt at bedside. Pt sharedthat his [...] nausea and no vomiting Last Bowel Movement: (PATCHER WOOD WELDER- MD made aware) Patient education / questions: all nutrition related questions answered at this time Nutrition services to follow weekly through hospital course unless consulted in the interim. Linda Bates Diagnostic Sales Specialist * Jessica Renae, PT - 10/03/2024 11:30 AM EST Physical Therapy Evaluation Patient profile: Geovanna Dixon Jr. is a 49 y.o. male with a history of HTN, HLD, NSTEMI, CAD s/p CABG (12/2011), DM,obesity, PAD s/p L iliofem endart and L fem-BK pop bypass and L 2nd toe amputation who was transferred from [facility], 09/26/24 given concern for infected left fem-BK popliteal PTFE bypass. He is now s/p an explant of an infected left femoral-below knee popliteal artery bypass graft (09/26), I/D groin abscess (09/27), L GSV harvest, vein patch angioplasty, L CLASSER and BK pop w/ sartorius flap L fem, I/D, 09/29 L sartorius flap revision, vac change. 10/03/24 NPO at [facility] for OR wound exploration. Wound vac [...] not holding suction - Last Bowel Movement: (PATCHER WOOD WELDER) Patient with the following active problems: Past Medical History: Diagnosis Date Depression Hyperlipidemia Hypertension Narcolepsy Obesity Past Surgical History: Procedure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 [phone] * Karolyn Hudson MD - 09/30/2024 11:21 AM EST Images from the original note were not included. Vascular Surgery Progress Note Patient ID Geovanna Dixon Jr. is a 49 y.o. male with history of HTN, HLD, NSTEMI, CAD s/p CABG (12/2011), DM, obesity, PAD s/p L iliofem endart and L fem-BK pop bypass and L 2nd toe amputation who was transferred from [facility] given concern for infected left fem-BK popliteal [...] smoking 1 week ago. He presented to [facility] on 09/26 and went to the OR [...] Procedure Component Value - Date/Time Blood culture [[id number]] (Abnormal) Collected: 09/27/24 2133 Lab Status: Preliminary result Specimen: Blood, Venous Updated: 09/30/24 0718 Blood Culture Methicillin Resistant Staphylococcus aureus Comment: Susceptibilities previously reported. Gram Stain Aerobic Bottle: Gram positive cocci in clusters Blood culture [[id number]] Collected: 09/28/24 1749 Lab Status: Preliminary result Specimen: Blood, Venous Updated: 09/29/24 1901 Blood Culture No Growth at 18-24 hrs. AFB culture [[id number]] Collected: 09/27/24 1654 Lab Status: Preliminary result Specimen: Tissue from Thigh, Left Updated: 09/29/24 1201 Acid Fast Bacilli Culture No acid fast bacilli isolated to date. Acid Fast Stain No acid fast bacilli seen AFB culture [[id number]] Collected: 09/26/24 1702 Lab Status: Preliminary result Specimen: Abscess from Knee, Left Updated: 09/29/24 1201 Acid Fast Bacilli Culture No acid fast bacilli isolated to date. Acid Fast Stain No acid fast bacilli seen Sonicated Tissue/Implant Culture [[id number]] (Abnormal) Collected: 09/26/24 1716 Lab Status: Preliminary result Specimen: Vascular Graft from Leg, Left Updated: 09/29/24 1132 Sonicated Tissue/Implant Culture Methicillin Resistant Staphylococcus aureus Comment: isolated from broth culture. Susceptibilities previously reported. Tissue Culture, Aerobic Only [[id number]] (Abnormal) (Susceptibility) Collected: 09/27/24 1654 Lab Status: [...] is considered susceptible to doxycycline. Blood culture [[id number]] (Abnormal) Collected: 09/26/24 1845 Lab Status: Preliminary result Specimen: Blood, Venous Updated: 09/29/24 0719 Blood Culture Methicillin Resistant Staphylococcus aureus Comment: isolated. Susceptibilities previously reported. Gram Stain Aerobic Bottle: Gram positive cocci in clusters Blood culture [[id number]] (Abnormal) (Susceptibility) Collected: 09/26/24 1422 Lab Status: Preliminary result Specimen: Blood, Venous Updated: 09/29/24 0717 Blood Culture Methicillin Resistant Staphylococcus aureus Comment: detected by PCR Isolate saved. If future testing is required, contact the Microbiology Civil Estimator. Gram Stain Aerobic Bottle: Gram positive cocci in clusters Susceptibility Methicillin Resistant Staphylococcus aureus VITEK 2 METHOD Clindamycin Resistant Gentamicin Susceptible [1] Linezolid Susceptible Oxacillin Resistant Trimethoprim/Sulfa Susceptible Vancomycin Susceptible [1] Gentamicin is not appropriate for monotherapy for gram-positive infections. Anaerobic Culture [[id number]] Collected: 09/27/24 1654 Lab Status: Preliminary result Specimen: Tissue from Thigh, Left Updated: 09/28/24 1355 Anaerobic Culture No anaerobic organisms isolated to date Abscess/Wound Aspirate Culture, Aerobic Only [[id number]] (Abnormal) (Susceptibility) Collected: 09/26/24 1702 Lab Status: [...] to doxycycline. Abscess/Wound Aspirate Culture, Aerobic Only [[id number]] (Abnormal) (Susceptibility) Collected: 09/26/241649 Lab Status: Preliminary [...] is considered susceptible to doxycycline. Fungus culture [[id number]] Collected: 09/27/241653 Lab Status: Preliminary result Specimen: Tissue from Thigh, Left Updated: 09/28/24 0748 Fungus Culture No fungus isolated to date MRSA PCR Screen [[id number]] (Abnormal) Collected: 09/27/24 0751 Lab Status: Final result Specimen: Swab from Nares Updated: 09/27/24 1156 MRSA PCR Detected Narrative: This test was performed using the Xpert MRSA NxG test kit and is run on the [employer] Simplified Gene[employer] Dx System. This test is cleared by the U.S. Food and Drug Administration for clinical use and its performance characteristics have been verified by the Clinical Genomics and [facility] Technology Laboratory at [facility]. Anaerobic Culture [[id number]] Collected: 09/26/241649 Lab Status: Preliminary result Specimen: Abscess from Groin, Left Updated: 09/27/24 1142 Anaerobic Culture No anaerobic organisms isolated to date Anaerobic Culture [[id number]] Collected: 09/26/24 1702 Lab Status: Preliminary result Specimen: Abscess from Knee, Left Updated: 09/27/24 1142 Anaerobic Culture No anaerobic organisms isolated to date Fungus culture [[id number]] Collected: 09/26/241649 Lab Status: Preliminary result Specimen: Abscess from Groin, Left Updated: 09/27/24 0727 Fungus Culture No fungus isolated to date Fungus culture [[id number]] Collected: 09/26/24 1702 Lab Status: Preliminary result Specimen: Abscess from Knee, Left Updated: 09/27/24726 Fungus Culture No fungus isolated to date New Studies Results for orders placed or performed during the hospital encounter of 09/26/24 Request For 2nd Read CT Lower Extremity (Exam End: 09/26/2024 1:50 PM) Result Value WORKSTATION ID [id number] Impression 1. There is a left femoral [...] who have questions please contact the health pediatric care coordinator that requested your imaging first. Lower Extremity w Contrast Left (Exam End: 09/27/2024 9:16 AM) Result Value WORKSTATION ID [id number] Impression IMPRESSION: 1. Interval explant of LEFT [...] who have questions please contact the health pediatric care coordinator that requested your imaging first. [...] 2nd toe amputation who was transferred from [facility] given concern for infected left fem-BK popliteal [...] at proximal and distal anastomoses and a Whiteoak drain placed from left groin to left [...] Labs 09/28/24 1516 PHART 7.42 PO2ART 103 [id number] 39 LACTATEART 1.1 BEART 0.2 Is this [...] 1643 PHART 7.42 7.38 PO2ART 103 96 [id number] 39 41 LACTATEART 1.1 1.7 BEART 0.2 [...] Thank you, Renea Nunez, MS, RD, LD, [facility] Clinical Nutrition * Mariya Shi RN - [...] Diet CC Monitoring: Q4 Fawn Cunningham APRN [facility] Endocrinology Diabetes Management Pager [phone] Weekends please page [phone] minutes were spent over the course [...] Labs 09/26/24 1643 PHART 7.38 PO2ART 96 [id number] 41 LACTATEART 1.7 BEART -1.4 Is this [...] 2nd toe amputation who was transferred from [facility] given concern for infected left fem-BK popliteal [...] smoking 1 week ago. He presented to [facility] on 09/26 and went to the OR [...] Procedure Component Value - Date/Time Fungus culture [[id number]] Collected: 09/27/24 1654 Lab Status: Preliminary result Specimen: Tissue from Thigh, Left Updated: 09/28/24 0748 Fungus Culture No fungus isolated to date Blood culture [[id number]] (Abnormal) Collected: 09/26/24 1845 Lab Status: Preliminary result Specimen: Blood, Venous Updated: 09/28/24 0711 Blood Culture Methicillin Resistant Staphylococcus aureus Comment: isolated. Susceptibility testing in progress. Gram Stain Aerobic Bottle: Gram positive cocci in clusters AFB culture [[id number]] Collected: 09/26/24 170 Lab Status: Preliminary result Specimen: Abscess from Knee, Left Updated: 09/27/24 2335 Acid Fast Stain No acid fast bacilli seen Tissue Culture, Aerobic Only [[id number]] Collected: 09/27/24 165 Lab Status: Preliminary result Specimen: Tissue from Thigh, Left Updated: 09/27/24 1810 Gram Stain Few Neutrophils seen No microorganisms seen Abscess/Wound Aspirate Culture, Aerobic Only [[id number]] (Abnormal) Collected: 09/26/24 170 Lab Status: Preliminary result Specimen: Abscess from Knee, Left Updated: 09/27/24 1520 Abscess/Wound Aspirate Culture Many Staphylococcus aureus Gram Stain Many neutrophils Many Gram positive cocci Abscess/Wound Aspirate Culture, Aerobic Only [[id number]] (Abnormal) Collected: 09/26/241649 Lab Status: Preliminary result Specimen: Abscess from Groin, Left Updated: 09/27/24 1519 Abscess/Wound Aspirate Culture Many Staphylococcus aureus Gram Stain Many neutrophils Many Gram positive cocci Blood culture [[id number]] (Abnormal) Collected: 09/26/24 1422 Lab Status: Preliminary result Specimen: Blood, Venous Updated: 09/27/24 1320 Blood Culture Methicillin Resistant Staphylococcus aureus Comment: detected by PCR Gram Stain Aerobic Bottle: Gram positive cocci in clusters MRSA PCR Screen [[id number]] (Abnormal) Collected: 09/27/24 0751 Lab Status: Final result Specimen: Swab from Nares Updated: 09/27/24 1156 MRSA PCR Detected Narrative: This test was performed using the Xpert MRSA NxG test kit and is run on the Social Media Simplified [employer] Dx System. This test is cleared by the U.S. Food and Drug Administration for clinical use and its performance characteristics have been verified by the Clinical Genomics and [facility] Technology Laboratory at [facility]. Anaerobic Culture [[id number]] Collected: 09/26/24 165 Lab Status: Preliminary result Specimen: Abscess from Groin, Left Updated: 09/27/24 1142 Anaerobic Culture No anaerobic organisms isolated to date Anaerobic Culture [[id number]] Collected: 09/26/24 170 Lab Status: Preliminary result Specimen: Abscess from Knee, Left Updated: 09/27/24 1142 Anaerobic Culture No anaerobic organisms isolated to date Fungus culture [[id number]] Collected: 09/26/24 1650 Lab Status: Preliminary result Specimen: Abscess from Groin, Left Updated: 09/27/24726 Fungus Culture No fungus isolated to date Fungus culture [[id number]] Collected: 09/26/24 1702 Lab Status: Preliminary result Specimen: Abscess from Knee, Left Updated: 09/27/24726 Fungus Culture No fungus isolated to date New Studies Results for orders placed or performed during the hospital encounter of 09/26/24 Request For 2nd Read CT Lower Extremity (Exam End: 09/26/2024 1:50 PM) Result Value WORKSTATION ID [id number] Impression 1. There is a left femoral [...] who have questions please contact the health pediatric care coordinator that requested your imaging first. Lower Extremity w Contrast Left (Exam End: 09/27/2024 9:16 AM) Result Value WORKSTATION ID [id number] Impression IMPRESSION: 1. Interval explant of LEFT [...] who have questions please contact the health pediatric care coordinator that requested your imaging first. Assessment & Plan Geovanna Dixon Jr. is a 49 y.o. male with a history of HTN, HLD, NSTEMI, CAD s/p CABG (12/2011), DM,obesity, PAD s/p L iliofem endart and L fem-BK pop bypass and L 2nd toe amputation who was transferred from [facility] given concern for infected left fem-BK popliteal [...] at proximal and distal anastomoses and a Whiteoak drain placed from left groin to left [...] PRN - SQH ppx - ISS Karolyn Hduson MD Vascular Surgery 09/28/24 [id number] IR * [...] Kita Hodge - 09/27/2024 3:58 PM EST Learning Program Manager Encounter Note Patient Name: Geovanna Dixon Jr. : [id number] MR#: [id number] Admit Date: 09/26/2024 2:08 PM Hospital Day 1 day Narrative: Director Treasurer initiated visit with patient during rounds on the unit. Patient indicated that he was not mosque. He reported that he was in less [...] Labs 09/26/24 1643 PHART 7.38 PO2ART 96 ONQ2HGD 41 LACTATEART 1.7 BEART -1.4 Is this [...] 2nd toe amputation who was transferred from [facility] given concern for infected left fem-BK popliteal [...] smoking 1 week ago. He presented to [facility] on 09/26 and went to the OR [...] 2nd toe amputation who was transferred from [facility] given concern for infected left fem-BK popliteal [...] graft associated infection. The patient presented to [facility] ED on 09/26 for evaluation of increasing [...] remained hemodynamically stable during his time at [facility] and was transported by ground to [facility] for vascular surgery consultation. Patient was admitted [...] 3.51) performed by Thony Garcia MD at [facility] MAIN OR PRO BYPASS GRAFT OTHR, FEM-TIBIAL Left 08/01/2024 @BYPASS GRAFT, FEM-ANT TIBIAL, -POST TIBIAL, -PERONEAL, -DP W\ SYNTHETIC CONDUIT (WRVU 23.66) performed by Lisette Maldonado MD at [facility] MAIN OR PRO CABG, ARTERY-VEIN, SINGLE 01/04/2012 @CABG, VENOUS & ARTERIAL GRAFT;SINGLE VEIN GRAFT performed by INNA TOVAR at [facility] MAIN OR PRO ENDOSCOPY W/VIDEO-ASST VEIN HARVEST, CABG 01/04/2012 ENDOSCOPIC HARVEST VEIN(S) FOR CABG performed by INNA TOVAR at [facility] MAIN OR VS ARTERIOGRAM LOWER EXTREMITY VASCULAR SURGERY 07/20/2024 VS Arteriogram Lower Extremity Vascular Surgery 07/20/2024 Anabel Finney MD [facility] INTERVENTIONL RAD Prior To Admission [...] 3 times daily. Use as instructed Indications: [id number] each 1 Past Week FreeStyle Lancets 28 [...] 200 - 393 mg/dL Type and screen ([facility]/P/BABITA) Result Value Ref Range ABORH Type A POSITIVE PATIENT HISTORY Found Expires at 2359 on: 09/29/2024 ANTIBODY SCREEN AUTOMATED Negative T&S only valid at [facility] LAB CBC (with Diff) Result Value Ref [...] 09/26/2024 1:50 PM) Result Value WORKSTATION ID [id number] Impression 1. There is a left femoral [...] who have questions please contact the health pediatric care coordinator that requested your imaging first. Assessment/Plan: Geovanna [...] to the planned procedure. Hand Hygiene: The wood heel flap inserter did perform hand hygiene prior to line insertion. Catheter type: PICC Lot number: [id number] Procedure Technique: Skin was prepped with chlorhexidine. [...] to the planned procedure. Hand Hygiene: The wood heel flap inserter did perform hand hygiene prior to line insertion. Catheter type: PICC Lot number: [id number] Procedure Technique: Skin was prepped with chlorhexidine. [...] tomorrow afternoon. Home Vac: I have called [facility] Inventory and they they have now delivered the home ActiVac serial # [id number]. Pt reviewed the [facility] ActiVac Proof of Delivery/Assignment of Benefits (POD/AOB)form and signed it; she has copy of this and the [facility] Patient Copy letter along with the supplies, I will fax copy of the POD/AOB to [facility]. Needs for Transition of Care: Plan for discharge is: Home w/ Services Outpatient Agency/Support Group Needs: Homecare agency Outpatient IV Medications - IV Access: Access Ordered Location: Home, Referred to [facility] Coordination, Referred to [facility] Services: Occupational Therapy, Physical Therapy, Registered Nurse Agency Referrals & Follow-up Care: Contact information [place] [facility] [place] [id number] [facility] [id number] Transportation: family or friend will provide Functional status prior to admission: Independent Home Environment: Others in the home: sibling(s), other (see comments) (lives with his sister delmy and brother in law). Current Living Arrangements: home/apartment/condo. Accessibility Concerns: . Current Functional Ability: Assistive Person and Equipment DME used at home: none Other DME Needs: Wound Vac Provider: [facility] Patient is insured through: Primary Insurance: [employer] MANAGED MEDICARE Payor: [employer] MANAGED MEDICARE / Plan: WELLCARE MANAGED MEDICARE [...] Pain Flowsheets Taken 10/09/20242022 Pain Management Interventions: dadaqq-jdc-ncebv dosing utilized care clustered diversional activity provided [...] from the original [place] [address] [facility] Vascular Access Service Peripherally Inserted Central Catheter (PICC) Teaching Sheet Peripherally inserted central catheters (eere-tq-bgah) (PICC) are used when you need IV [...] midline catheter? PICC lines are used for vocational technical education teacher treatments. PICC lines may be used for [...] can be set up via the nurse Logistics System Engineer to help you. What are possible complications [...] Efficacy, Safety, Use, and Administration of Cathflo, [employer] 2005 * Care Management - Cristina [...] MEDICARE Payor: WELLCARE MANAGED MEDICARE / Plan: [employer] MANAGED MEDICARE PPO / Product Type: *No [...] Access: Access Ordered Location: Home, Referred to [facility] Coordination Home Health Services: Occupational Therapy, Physical Therapy, Registered Nurse- will remove PT, OT Agency Referrals: [facility] and [facility] for IV abx. [facility] can come tomorrow [...] 9:00 AM EST OFFICE OF CARE MANAGEMENT Logistics System Engineer Follow-up Note Cristina Turner RN reviewed record [...] medically ready. Current Referral in place: VNA: [facility] Wound vac ordered in [employer] System for home wound vac and order emailed to: María for signature. Logistics System Engineer to follow with team and family to [...] where referrals are placed. Request referral to [place], [place] for IV abx or . Expected date of discharge: 10/11. Patient will require teaching. Referral routed to the Lactation Nurse for matching with agency/vendor and to provide [...] care clustered diversional activity provided position adjusted [id number]-gzo-uksfr dosing utilized pain management plan reviewed with [...] have. Alternately, during off-hours you may call [phone] to contact a pharmacist. * Plan of Care - Jordyn Navas RN - 10/07/2024 7:21 PM EST OUTCOME EVALUATION NOTE: OUTCOME SUMMARY: Transferred to unit at 1730 from [facility] - VSS, Meds/Assessments as charted, Frequent safety [...] PM EST PICC line placed today for vocational technical education teacher ABX. Neurovascular checks unchanged. Good oral intake [...] from the original [place] [address] [facility] Vascular Access Service Peripherally Inserted Central Catheter (PICC) Teaching Sheet Peripherally inserted central catheters (ugds-ti-jxyx) (PICC) are used when you need IV [...] midline catheter? PICC lines are used for vocational technical education teacher treatments. PICC lines may be used for [...] can be set up via the nurse Logistics System Engineer to help you. What are possible complications [...] Vascular Access Device Selection, Insertion, and Management, [employer] 08/12. A Review of the Efficacy, Safety, Use, and Administration of Cathflo, [employer] 2005 * Care Management - Vibha [...] No Patient is insured through: Primary Insurance: [employer] MANAGED MEDICARE Payor: [employer] MANAGED MEDICARE / Plan: [employer] MANAGED MEDICARE PPO / Product Type: *No [...] of Discharge: 10/10/2024 Vibha Wahl RN-BSN-CM Pager: [phone] * Consult Note - Stormy Muller [facility] - 10/06/2024 9:19 AM EST [facility] [...] Analysis of the most recent level(s) using GrexIt gives the following patient-specific pharmacokinetic parameters: CL: [...] in a steady-state trough of 14.6 mg/L [id number] of 508 mg/L.hr. Recommendations: - SCr has [...] Meeks MD - 10/04/2024 5:01 PM EST [facility] Operative Note Patient Name: Geovanna Dixon Jr. : [id number] MR#: [id number] Case Date: 10/04/2024 Surgeon: Surgeons and Role: * Marko Dickson MD - Primary * Cristino Meeks MD - Resident - Assisting Preoperative diagnosis: Status post explant of infected left CLASSER-BK pop bypass graft Postoperative diagnosis: Status post explant of infected left CLASSER-BK pop bypass graft Procedure(s) (LRB): DEBRIDEMENT SKIN [...] 2nd toe amputation who was transferred from [facility] given concern for infected left fem-BK popliteal PTFE bypass. He is now s/p an explant of an infected left femoral-below knee popliteal artery bypass graft on 09/26 followed by I/D posterior thigh abscess on 09/27 then left GSV harvest, total explant of remaining PTFE then vein patch angioplasty of the left CLASSER and BK popliteal artery on 09/28 then [...] Note Patient Name: Geovanna Dixon Jr. : [id number] MR#: [id number] Case Date: 10/04/2024 Surgeon: Surgeons and Role: * Marko Dickson MD - Primary * Cristino Meeks MD - Resident - Assisting Preoperative diagnosis: Status post explant of infected left CLASSER-BK pop bypass graft Postoperative diagnosis: Status post explant of infected left CLASSER-BK pop bypass graft Procedure(s) (LRB): DEBRIDEMENT SKIN [...] No Patient is insured through: Primary Insurance: [employer] MANAGED MEDICARE Payor: [employer] MANAGED MEDICARE / Plan: [employer] MANAGED MEDICARE PPO / Product Type: *No Product type* / Secondary Insurance: N/A Last Physical Therapy Recommendation: home with supervision (and support from family, prn) with None (10/03/24 1101) Last Occupational Therapy Recommendation: home (w/ family) with None (10/03/24 6322) Plan for discharge is: Pending Hospital Course [...] BIT to reengage please page BIT @ [phone] * Consult Note - Vangie Chandra [facility] - 10/04/2024 10:42 AM EST [facility] [...] Analysis of the most recent level(s) using GrexIt gives the following patient-specific pharmacokinetic parameters: CL: [...] L 2nd toe amputationwho was transferred from [facility] given concern for infected left fem-BK popliteal PTFE bypass. He is now s/p an explant of an infected left femoral-below knee popliteal artery bypass graft (09/26), I/D groin abscess (09/27), L GSV harvest, vein patch angioplasty, L CLASSER and BK pop w/ sartorius flap L fem, I/D, 09/29 L sartorius flap revision, vac change. 10/03/24 NPO at [facility] for OR wound exploration. Wound vac [...] 3.51) performed by Thony Garcia MD at [facility] MAIN OR PRO BYPASS GRAFT OTHR, FEM-TIBIAL Left 08/01/2024 @BYPASS GRAFT, FEM-ANT TIBIAL, -POST TIBIAL, -PERONEAL, -DP W\ SYNTHETIC CONDUIT (WRVU 23.66) performed by Lisette Maldonado MD at [facility] MAIN OR PRO CABG, ARTERY-VEIN, SINGLE 01/04/2012 @CABG, VENOUS & ARTERIAL GRAFT;SINGLE VEIN GRAFT performed by INNA TOVAR at [facility] MAIN OR PRO DEBRIDEMENT MUSCLE AND FASCIA 20 SQ CM/< Left 09/29/2024 DEBRIDEMENT SKIN, SUBCU, MUSCLE, LOWER EXTREMITY (WRVU 2.7) performed by Anabel Finney MD at [facility] MAIN OR PRO DEBRIDEMENT MUSCLE AND FASCIA 20 SQ CM/< Left 10/02/2024 DEBRIDEMENT SKIN, SUBCU, MUSCLE, LOWER EXTREMITY (WRVU 2.7) performed by Hermila Mccormick MDat [facility] MAIN OR PRO DEBRIDEMENT SUBCUTANEOUS TISSUE 20 SQCM/< Left 09/27/2024 DEBRIDEMENT SKIN AND SUBCU, LOWER EXTREMITY (WRVU 1.01) performed by Hayley Torres MD at [facility] MAIN OR PRO DRAIN LOWER LEG DEEP ABSC/HEMATOMA Left 09/26/2024 INCISION & DRAINAGE, LEG OR ANKLE, DEEP ABSCESS OR HEMATOMA (WRVU 5.23) performed by Hayley Torres MD at [facility] MAIN OR PRO ENDOSCOPY W/VIDEO-ASST VEIN HARVEST, CABG 01/04/2012 ENDOSCOPIC HARVEST VEIN(S) FOR CABG performed by INNA TOVAR at [facility] MAIN OR PRO EXCISION, INFEC GRAFT, EXTREMITY Left 09/26/2024 EXCISION OF INFECTED GRAFT FROM LOWER EXTREMITY (WRVU 9.53) performed by Hayley Torres MD at [facility] OR PRO EXCISION, INFEC GRAFT, EXTREMITY Left 09/28/2024 EXCISION OF INFECTED GRAFT FROM LOWER EXTREMITY (WRVU 9.53) performed by Hayley Torres MD at [facility] MAIN OR PRO EXPLORATION NOT FOLLOWED BY SURG LOWER EXTREMITY ARTERY Left 09/29/2024 @EXPLORATION W\O SURGICAL REPAIR, FEMORAL ARTERY - JENNIFER (WRVU 7.5) performed by Anabel Finney MD at [facility] MAIN OR PRO FORM SKIN PEDICLE FLAP SCALP, ARM, LEG 09/28/2024 FLAP, PEDICLE,W OR W/O TRANSFER, LEGS (WRVU 10.12) performed by Hayley Torres MD at [facility] MAIN OR PRO I&D DEEP ABSCESS BURSA/HEMATOMA THIGH/KNEE REGION Left 09/26/2024 INCISION & DRAINAGE ABSCESS OR HEMATOMA, THIGH, KNEE SUPERFICIAL (WRVU 6.78) performed by Hayley Torres MD at [facility] MAIN OR PRO REVISION FEMORAL ANAST BPG GROIN OPEN W/NONAUTOG PATCH GRAFT Left 09/28/2024 REV. FEM. ANASTOMOSIS OF SYN. BYPASS GRAFT USING NONAUTOGENOUS PATCH ANGIOPLASTY-JENNIFER (WRVU 23.15) performed by Hayley Torres MD at [facility] MAIN OR PRO UNLISTED PROCEDURE VASCULAR SURGERY Left 09/28/2024 HARVEST SAPHENOUS VEIN (WRVU 13.24) performed by Hayley Torres MD at [facility] MAIN OR VS ARTERIOGRAM LOWER EXTREMITY VASCULAR SURGERY 07/20/2024 VS Arteriogram Lower Extremity Vascular Surgery 07/20/2024 Anabel Finney MD [facility] INTERVENTIONL RAD Social History: Patient [...] Pt issued and educated on use of folded towel machine operator for folded towel machine operator lower items. Self-feeding: Independent Grooming: Set [...] Discharge planning Total Minutes, Occupational Therapy: 35 ([id number]) OT Evaluation Code Rationale: Diagnosis & Pertinent Co-Morbidities affecting Plan of Care: see PMHx Occupational Profile & Client History: Brief Expanded Extensive x Assessment of Occupational Performance: 1-3 performance deficits 3-5 performance deficits x 5 + performance deficits Clinical Decision Making: Low Moderate High x Clinical decision making of low complexity using standardized patient assessment instrument and measurable assessment of functional outcome. Pager: [phone] Jorge Goetz OT 10/03/2024 Occupational Therapy Rehabilitation [...] Mccormick MD - 10/02/2024 2:06 PM EST [facility] Operative Note Patient Name: Geovanna Dixon Jr. : [id number] MR#: [id number] Case Date: 10/02/2024 Surgeon: Surgeons and Role: [...] 2nd toe amputation who was transferred from [facility] given concern for infected left fem-BK popliteal [...] the groin, we then attached a 15 Ethiopian Jose drain to the Yung drain, and remove the Yung drain, replacing it with the 15 Ethiopian Jose drain. In a similar way we [...] Therapy, Physical Therapy, Registered Nurse Agency Referrals: [facility]. [address] [place] [address] Transportation: family or friend will provide Barriers to discharge: Global: Denies needs/concerns at this time Plan: Patient is not medically ready related to: patient is going to the OR today for a washout andremains on blowout precautions. Plan going forward is: when able patient will need to work with PT/OT Anticipated Date of Discharge: 10/10/2024 Penny ROSAS RN CM Phone: [phone] Pager: [phone] * Plan of Care - Heidi Mobley [...] output. * Consult Note - Katelyn Oconnor [facility] - 09/30/2024 7:43 AM EST [facility] [...] Analysis of the most recent level(s) using The [employer] gives the following patient-specific pharmacokinetic parameters: CL: [...] Finney MD - 09/29/2024 2:41 PM EST [facility] Operative Note Patient Name: Geovanna Dixon Jr. : [id number] MR#: [id number] Case Date: 09/29/2024 Surgeon: Surgeons and Role: [...] 2nd toe amputation who was transferred from [facility] given concern for infected left fem-BK popliteal [...] mobilized and explored. The area around the CLASSER was irrigated copiously. The flap was then [...] Therapy, Physical Therapy, Registered Nurse Agency Referrals: [facility] [address] [place] [address] Transportation: family or friend will provide Barriers [...] Discharge: 10/04/2024 Penny ROSAS RN CM Phone: [phone] Pager: [phone] * Consult Note - Rose Wright APRN [...] 2nd toe amputation who was transferred from [facility] given concern for infected left fem-BK popliteal [...] smoking 1 week ago. He presented to [facility] on 09/26 and went to the OR [...] Procedure Component Value - Date/Time Blood culture [[id number]] (Abnormal) Collected: 09/27/242132 Lab Status: Preliminary result Specimen: Blood, Venous Updated: 09/29/24 0721 Blood Culture Methicillin Resistant Staphylococcus aureus Gram Stain Aerobic Bottle: Gram positive cocci in clusters Blood culture [[id number]] (Abnormal) Collected: 09/26/24 1845 Lab Status: Preliminary result Specimen: Blood, Venous Updated: 09/29/24 0719 Blood Culture Methicillin Resistant Staphylococcus aureus Comment: isolated. Susceptibilities previously reported. Gram Stain Aerobic Bottle: Gram positive cocci in clusters Blood culture [[id number]] (Abnormal) (Susceptibility) Collected: 09/26/24 1422 Lab Status: Preliminary result Specimen: Blood, Venous Updated: 09/29/24 0717 Blood Culture Methicillin Resistant Staphylococcus aureus Comment: detected by PCR Isolate saved. If future testing is required, contact the Microbiology Civil Estimator. Gram Stain Aerobic Bottle: Gram positive cocci in clusters Susceptibility Methicillin Resistant Staphylococcus aureus VITEK 2 METHOD Clindamycin Resistant Gentamicin Susceptible [1] Linezolid Susceptible Oxacillin Resistant Trimethoprim/Sulfa Susceptible Vancomycin Susceptible [1] Gentamicin is not appropriate for monotherapy for gram-positive infections. AFB culture [[id number]] Collected: 09/27/24 165 Lab Status: Preliminary result Specimen: Tissue from Thigh, Left Updated: 09/28/24 2226 Acid Fast Stain No acid fast bacilli seen Anaerobic Culture [[id number]] Collected: 09/27/24 165 Lab Status: Preliminary result Specimen: Tissue from Thigh, Left Updated: 09/28/24 1355 Anaerobic Culture No anaerobic organisms isolated to date Sonicated Tissue/Implant Culture [[id number]] Collected: 09/26/24 1716 Lab Status: Preliminary result Specimen: Vascular Graft from Leg, Left Updated: 09/28/24 1323 Sonicated Tissue/Implant Culture Culture in progress Tissue Culture, Aerobic Only [[id number]] (Abnormal) Collected: 09/27/24 1654 Lab Status: Preliminary result Specimen: Tissue from Thigh, Left Updated: 09/28/24 1049 Tissue Culture Rare Staphylococcus aureus Gram Stain Few Neutrophils seen No microorganisms seen Abscess/Wound Aspirate Culture, Aerobic Only [[id number]] (Abnormal) (Susceptibility) Collected: 09/26/24 1702 Lab Status: [...] to doxycycline. Abscess/Wound Aspirate Culture, Aerobic Only [[id number]] (Abnormal) (Susceptibility) Collected: 09/26/241649 Lab Status: Preliminary [...] is considered susceptible to doxycycline. Fungus culture [[id number]] Collected: 09/27/241653 Lab Status: Preliminary result Specimen: Tissue from Thigh, Left Updated: 09/28/24 0748 Fungus Culture No fungus isolated to date AFB culture [[id number]] Collected: 09/26/241701 Lab Status: Preliminary result Specimen: Abscess from Knee, Left Updated: 09/27/24 2335 Acid Fast Stain No acid fast bacilli seen MRSA PCR Screen [[id number]] (Abnormal) Collected: 09/27/24 0751 Lab Status: Final result Specimen: Swab from Nares Updated: 09/27/24 1156 MRSA PCR Detected Narrative: This test was performed using the Xpert MRSA NxG test kit and is run on the [employer] Simplified GeneXpert Dx System. This test is cleared by the U.S. Food and Drug Administration for clinical use and its performance characteristics have been verified by the [facility] at [facility]. Anaerobic Culture [[id number]] Collected: 09/26/241649 Lab Status: Preliminary result Specimen: Abscess from Groin, Left Updated: 09/27/24 1142 Anaerobic Culture No anaerobic organisms isolated to date Anaerobic Culture [[id number]] Collected: 09/26/24 170 Lab Status: Preliminary result Specimen: Abscess from Knee, Left Updated: 09/27/24 1142 Anaerobic Culture No anaerobic organisms isolated to date Fungus culture [[id number]] Collected: 09/26/24 1650 Lab Status: Preliminary result Specimen: Abscess from Groin, Left Updated: 09/27/24726 Fungus Culture No fungus isolated to date Fungus culture [[id number]] Collected: 09/26/24 1702 Lab Status: Preliminary result Specimen: Abscess from Knee, Left Updated: 09/27/24726 Fungus Culture No fungus isolated to date New Studies Results for orders placed or performed during the hospital encounter of 09/26/[address] Request For [address]nd Read CT Lower Extremity (Exam End: 09/26/2024 1:50 PM) Result Value WORKSTATION ID [id number] Impression 1. There is a left femoral [...] who have questions please contact the health pediatric care coordinator that requested your imaging first. Lower Extremity w Contrast Left (Exam End: 09/27/2024 9:16 AM) Result Value WORKSTATION ID [id number] Impression IMPRESSION: 1. Interval explant of LEFT [...] who have questions please contact the health pediatric care coordinator that requested your imaging first. [...] 2nd toe amputation who was transferred from [facility] given concern for infected left fem-BK popliteal [...] Torres MD - 09/28/2024 12:23 PM EST [facility] Operative Note Patient Name: Geovanna Dixon Jr. : [id number] MR#: [id number] Case Date: 09/28/2024 Surgeon: Surgeons and Role: [...] pericardial patch and PTFE willard over the CLASSER was unincorporated. - Resection of prior femoral [...] Destination 1 : Left femoral proximal graft Vibrating Screen Operator Leg, Left SURGICAL PATHOLOGY Hayley Torres MD 09/28/2024 1410 2 : Left distal BK pop graft Vibrating Screen Operator Leg, Left SURGICAL PATHOLOGY Hayley Torres MD [...] Indications: 49M with history of a left CLASSER-BK popliteal artery bypass with PTFE performed in [...] solution. Systemic heparin was administered. Next, the CLASSER, SFA, and DFA were clamped. An 11-blade scalpel was used to excise the PTFE graft willard and the prior bovine pericardial patch, and all prior Prolene sutures were removed. Residual plaque in the arterial lumen was removed using a Atkinson elevator. The harvested vein patch was cut [...] the midline with division of the first color control operator, such that the sartorius muscle was [...] Torres MD - 09/28/2024 12:23 PM EST [facility] Operative Note Patient Name: Geovanna Dixon Jr. : [id number] MR#: [id number] Case Date: 09/28/2024 Surgeon: Surgeons and Role: [...] - Prior bovine pericardial patch over the CLASSER was unincorporated. - Resection of prior femoral [...] No * Consult Note - Tea Nguyen, [facility] - 09/28/2024 9:23 AM EST [...] Analysis of the most recent level(s) using The [employer] gives the following patient-specific pharmacokinetic parameters: CL: [...] Note Patient Name: Geovanna Dixon Jr. : [id number] MR#: [id number] Case Date: 09/27/2024 Surgeon: Surgeons and Role: [...] Torres MD - 09/27/2024 4:27 PM EST [facility] Operative Note Patient Name: Geovanna Dixon Jr. : [id number] MR#: [id number] Case Date: 09/26/2024 Surgeon: Surgeons and Role: [...] distal anastomoses with Prolene tag on latter. Whiteoak drain placed from left groin to left [...] ANAEROBIC Hayley Torres MD 09/26/2024 1702 Drains: Whiteoak drain between left groin to left thigh [...] HPI/Surgical Indications: 49M with history of left CLASSER-BK popliteal artery bypass graft with PTFE (July [...] Torres MD - 09/27/2024 4:27 PM EST [facility] Operative Note Patient Name: Geovanna Dixon Jr. : [id number] MR#: [id number] Case Date: 09/27/2024 Surgeon: Surgeons and Role: [...] 2nd toe amputation who was transferred from [facility] given concern for infected left fem-BK popliteal [...] smoking 1 week ago. He presented to [facility] on 09/26 and went to the OR [...] management and to provide a review of vocational technical education teacher diabetes care. Glargine 25 units administered this [...] regimen: Diabetes Provider: PCP in [facility] Medications: Lantus 50 units, lispro [...] Cunningham APRN Endocrinology Diabetes Management Service Pager: [phone] Weekends please page [phone] 80 minute visit was spent in counseling [...] surrogate would be surrogate decision maker per [place] surrogate decision making law. (Only good for 180 days) Any patient receiving care in [place] must abide by [place] law. The hierarchy for surrogate decision making [...] (i) The agent with financial power of mass communications professor or a conservator appointed in accordance with [...] homeless or living in a assisted (including now)?: No In the past 12 months has the [employer], gas, oil, or water [employer] threatened to shut off services in your [...] Home Address confirmed as: [address] [address] Social & Family Supports: All names listed [...] his home before. Health/Prescription Coverage: Primary Insurance: [employer] MANAGED MEDICARE Payor: [employer] MANAGED MEDICARE / Plan: [facility] MANAGED MEDICARE PPO / Product Type: *No Product type* / Secondary Insurance: N/A ; Prescription Coverage: Yes Preferred Pharmacy: [facility] - [place], [place] - [address] [address] [facility] - [place], [place] - [address] [address] [place], [place] - [address] [place] [address] [address] [facility] [address] [facility] [address] [place] Status: Patient is a : No Primary Care Provider confirmed: JUSTIN Roberson [phone] Patient/Caregiver Goals of Treatment: patient will need [...] where referrals are placed. Provided patient with [facility] Star Quality Rating handout. They have requested referrals to: [facility]. [address] [place] [address] Expected date of discharge: TBD Referral routed to the Lactation Nurse for matching with agency/vendor and to provide [...] care as indicated. Penny ROSAS, RN Phone: [phone] Pager: [phone] * Consult Note - Stacey Thomas MD [...] extremity aching prompting him to go to [facility]. The groin pain dissipated. About a week later on 09/26 he developed left-sided groin pain prompting him to go to [facility] once again. Lab work notable for WBC count of 21, lactic acid 3.6. He underwent evaluation with a CT scan demonstrating an abscess from the left groin operative site the entire left of the graft down by the knee. He was transferred to [facility] for further care and he was [...] 3.51) performed by Thony Garcia MD at [facility] MAIN OR PRO BYPASS GRAFT OTHR, FEM-TIBIAL Left 08/01/2024 @BYPASS GRAFT, FEM-ANT TIBIAL, -POST TIBIAL, -PERONEAL, -DP W\ SYNTHETIC CONDUIT (WRVU 23.66) performed by Lisette Maldonado MD at [facility] MAIN OR PRO CABG, ARTERY-VEIN, SINGLE 01/04/2012 @CABG, VENOUS & ARTERIAL GRAFT;SINGLE VEIN GRAFT performed by INNA TOVAR at [facility] MAIN OR PRO ENDOSCOPY W/VIDEO-ASST VEIN HARVEST, CABG 01/04/2012 ENDOSCOPIC HARVEST VEIN(S) FOR CABG performed by INNA TOVAR at [facility] MAIN OR VS ARTERIOGRAM LOWER EXTREMITY VASCULAR SURGERY 07/20/2024 VS Arteriogram Lower Extremity Vascular Surgery 07/20/2024 Anabel Finney MD [facility] INTERVENTIONL RAD Medications: potassium chloride [...] admitted to SICU as a transfer from [facility] for suspected graft infection/sepsis. A/Ox4, able to [...] Torres MD - 09/26/2024 4:50 PM EST [facility] Operative Note Patient Name: Geovanna Dixon Jr. 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 Postoperative diagnosis: left infected femoral to below knee bypass graft Procedure: Explant of infected LEFT CLASSER to below-knee popliteal artery PTFE bypass graft [...] Indications: 49M with history of a left CLASSER-BK popliteal artery bypass with PTFE performed in [...] tunnel using a large Amy clamp, and Whiteoak drains were used to prevent the tunnel [...] 2nd toe amputation who was transferred from [facility] given concern for infected left fem-BK popliteal [...] 3.51) performed by Thony Garcia MD at [facility] MAIN OR PRO BYPASS GRAFT OTHR, FEM-TIBIAL Left 08/01/2024 @BYPASS GRAFT, FEM-ANT TIBIAL, -POST TIBIAL, -PERONEAL, -DP W\ SYNTHETIC CONDUIT (WRVU 23.66) performed by Lisette Maldonado MD at [facility] MAIN OR PRO CABG, ARTERY-VEIN, SINGLE 01/04/2012 @CABG, VENOUS & ARTERIAL GRAFT;SINGLE VEIN GRAFT performed by INNA TOVAR at [facility] MAIN OR PRO ENDOSCOPY W/VIDEO-ASST VEIN HARVEST, CABG 01/04/2012 ENDOSCOPIC HARVEST VEIN(S) FOR CABG performed by INNA TOVAR at [facility] MAIN OR VS ARTERIOGRAM LOWER EXTREMITY VASCULAR SURGERY 07/20/2024 VS Arteriogram Lower Extremity Vascular Surgery 07/20/2024 Anabel Finney MD [facility] INTERVENTIONL RAD Social Hx: Social [...] 3 times daily. Use as instructed Indications: [id number] each 1 FreeStyle Lancets 28 gauge Misc [...] 2nd toe amputation who was transferred from [facility] given concern for infected left fem-BK popliteal [...] PM EST Office Visit [place] [address] Isabela Hayward APRN [facility] INFECTIOUS [place] [address] 11/10/2024 10:00 AM EST Office Visit [place] [address] Dai Whitman, SEARCH ENGINE OPTIMIZATION SPECIALIST 11/21/2024 2:15 PM EST Office [place] [address] Dayanara Grover MD [facility] DR ENDOCRINOLOGY [place] [address] Pending Results Name Type Priority Associated Diagnoses [...] Debridement Muscle And Fascia 20 Sq Cm/< (68028) 10/02/2024 1:28 PM EST Infected LLE graft [...] Non-fasting (10/16/2024) Glucose Lvl - External 124(H) [facility] Blood Urea Nitrogen - External 17 [facility] Creatinine - External 0.9 [facility] EGFR - External 104.05 [facility] Anion Gap - External 11.6(H) [facility] Sodium - External 141 [facility] Potassium - External 4.3 [facility] Chloride - External 103 [facility] CO2 - External 26.4 [facility] Calcium - External 9.0 [facility] Protein, Total - External 6.9 [facility] Albumin - External 3.0(L) [facility] Total Bilirubin - External 0.20 [facility] Alk Phos - External 124(H) [facility] AST (SGOT) - External 12 [facility] ALT (SGPT) - External 22 [facility] Blood VENOUS BLOOD SPECIMEN / Unknown 10/16/2024 Amaya Hernandez MD CHEMISTRY ORDERABLES Performing Organization Address City/[facility]/ZIP Co de Phone Number [address] [phone] * CK (10/16/2024) CK, Total - External 39 [facility] Blood VENOUS BLOOD SPECIMEN / Unknown 10/16/2024 Amaya Hernandez MD CHEMISTRY ORDERABLES [address] [phone] * (ABNORMAL) CBC (with Diff) (10/16/2024) WBC - External 10.99(H) [facility] RBC - External 3.71(L) [facility] Hemoglobin - External 10.8(L) [facility] Hematocrit - External 33.8(L) [facility] MCV - External 91 [facility] MCH - External 29.1 [facility] MCHC - External 32.0 [facility] RDWCV - External 14.2(H) [facility] Platelets - External 512(H) [facility] MPV - External 9.8 [facility] NRBC % - External 0.0 [facility] NRBC Abs - External 0.0 [facility] Neutrophils % - External 64.2 [facility] Lymphocytes % - External 25.8 [facility] Monocytes % - External 6.8 [facility] Eosinophils % - External 2.0 [facility] Basophils % - External 0.9 [facility] Immature Gran % - External 0.3 [facility] Neutr ABS (ANC) - External 7.06(H) [facility] Lymphocyte ABS - External 2.84 [facility] Monocyte ABS - External 0.75 [facility] Eosinophil ABS - External 0.22 [facility] Basophil ABS - External 0.10 [facility] Blood VENOUS BLOOD SPECIMEN / Unknown 10/16/2024 Amaya Hernandez MD HEMATOLOGY ORDERABLE S Performing Organization Address City/State/[facility] Co de Phone Number [facility] [address] [place] [phone] * POC, GLUCOSE (10/10/2024 4:27 PM EST) [...] O RDERABLES Performing Organization Address [facility] Co de Phone Number [facility] [place] [address] * POC, GLUCOSE (10/10/2024 11:10 AM EST) Glucometer, POC 174 65 - 199 mg/dL 10/10/2024 11:11 AM EST [facility] Comment:Supplemental ranges: <140 mg/dL before meals <180 mg/dL all other times of the day. Blood CAPILLARY BLOOD / Unknown 10/10/2024 11:10 AM EST 10/10/2024 11:11 AM EST Hayley Torres MD POINT OF CARE TEST O GILDA Performing Organization Address [facility] de Phone Number [facility] [place] [address] * POC, GLUCOSE (10/10/2024 7:46 AM EST) Glucometer, POC 141 65 - 199 mg/dL 10/10/2024 7:46 AM EST [facility] Comment:Supplemental ranges: <140 mg/dL before meals <180 mg/dL all other times of the day. Blood CAPILLARY BLOOD / Unknown 10/10/2024 7:46 AM EST 10/10/2024 7:46 AM EST Hayley Torres MD POINT OF CARE TEST O RDERAHERNANDEZ Performing Organization Address [facility] Co de Phone Number [facility] [place] [address] * POC, GLUCOSE (10/10/2024 6:11 AM EST) Glucometer, POC 127 65 - 199 mg/dL 10/10/2024 6:11 AM EST [facility] [facility] Comment:Supplemental ranges: <140 mg/dL before meals <180 mg/dL all other times of the day. Blood CAPILLARY BLOOD / Unknown 10/10/2024 6:11 AM EST 10/10/2024 6:11 AM EST Hayley Torres MD POINT OF CARE TEST O RDERABLES [facility] [place] [address] * CK (10/10/2024 12:33 AM EST) Pathologist [facility] Creatine Kinase 32 0 - 200 unit/L 10/10/2024 8:54 AM [facility] Blood VENOUS BLOOD SPECIMEN / Unknown Venipuncture / Unknown 10/10/2024 12:33 AM EST 10/10/2024 12:43 AM EST María Carranza APRN CHEMISTRY ORDER RANDELL Performing Organization Address City/[facility]/ZIP Co de Phone Number [facility] [place] [address] * (ABNORMAL) CBC (with Diff) (10/10/2024 12:33 AM EST) [facility] White Blood Cell 11.57(H) 4.00 - 9.50 x10(3)/mc L 10/10/2024 12:48 AM [facility] Red Blood Cell 3.75(L) 4.58 - 5.54 x10(6)/mc L 10/10/2024 12:48 AM [facility] Hemoglobin 11.1(L) 13.7 - 16.5 g/dL 10/10/2024 12:48 AM [facility] Hematocrit 33.5(L) 40.5 - 48.5 % 10/10/2024 12:48 AM [facility] Mean Cell Volume 89.3 82.9 - 93.1 fL 10/10/2024 12:48 AM [facility] Mean Cell Hemoglobin 29.6 27.5 - 32.1 pg 10/10/2024 12:48 AM [facility] Mean Cell Hemoglobin Concentration 33.1 32.0 - 35.7 g/dL 10/10/2024 12:48 AM [facility] Platelet 823(H) 145 - 357 x10(3)/mc L 10/10/2024 12:48 AM [facility] Mean Platelet Volume 9.2 7.6 - 12.9 fL 10/10/2024 12:48 AM [facility] RDW Standard Deviation 46.3(H) 36.0 - 45.0 fL 10/10/2024 12:48 AM [facility] RDW coefficient of variation 14.6(H) 11.4 - 13.8 % 10/10/2024 12:48 AM [facility] NRBC% auto 0.0 % 10/10/2024 12:48 AM [facility] NRBC Absolute <0.01 <0.01 x10(3)/mc L 10/10/2024 12:48 AM [facility] Neutrophil % 61.3 % 10/10/2024 12:48 AM [facility] Neutrophil Absolute (ANC) - Automated 7.08(H) 1.70 - 6.10 x10(3)/mc L 10/10/2024 12:48 AM [facility] Lymph % 28.7 % 10/10/2024 12:48 AM [facility] Lymph Absolute 3.32(H) 0.90 - 3.20 x10(3)/mc L 10/10/2024 12:48 AM [facility] Monocyte % 7.0 % 10/10/2024 12:48 AM [facility] Monocyte Absolute 0.81 0.30 - 0.90 x10(3)/mc L 10/10/2024 12:48 AM [facility] Eos % 1.6 % 10/10/2024 12:48 AM [facility] Eos Absolute 0.19 0.00 - 0.40 x10(3)/mc L 10/10/2024 12:48 AM [facility] Basophil % 1.0 % 10/10/2024 12:48 AM [facility] Baso Absolute 0.12(H) 0.00 - 0.10 x10(3)/mc L 10/10/2024 12:48 AM [facility] Immature Gran % 0.4 % 12:48 AM [facility] Immature Gran Absolute 0.05(H) 0.00 - 0.04 x10(3)/mc L 10/10/2024 12:48 AM [facility] Blood VENOUS BLOOD SPECIMEN / Unknown Venipuncture / Unknown 10/10/2024 12:33 AM EST 10/10/2024 12:43 AM EST Hayley Torres MD HEMATOLOGY ORDERABLE S [facility] [place] [address] * (ABNORMAL) Basic Metabolic Panel (10/10/2024 12:33 AM EST) Glucose 125 65 - 199 mg/dL 10/10/2024 1:12 AM [facility] Comment:Glucose Concentratio n >=200 mg/dL plus symptoms is consistent with Diabetes Mellitus. Blood Urea Nitrogen 19 10 - 20 mg/dL 10/10/2024 1:12 AM [facility] Creatinine 0.57(L) 0.80 - 1.50 mg/dL 10/10/2024 1:12 AM [facility] Sodium 138 135 - 145 mMol/L 10/10/2024 1:12 AM [facility] Potassium 4.1 3.5 - 5.0 mMol/L 10/10/2024 1:12 AM [facility] Chloride 103 98 - 107 mMol/L 10/10/2024 1:12 AM [facility] Carbon Dioxide 25 22 - 31 mMol/L 10/10/2024 1:12 AM [facility] Anion Gap 10 5 - 15 mMol/L 10/10/2024 1:12 AM [facility] Calcium 9.4 8.5 - 10.5 mg/dL 10/10/2024 1:12 AM EST [facility] Est Glomerular Filtration Rate - Male 119 mL/min/1. 73 m?? 10/10/2024 1:12 AM EST [facility] Comment: This patient's estimated GFR [...] CHEMISTRY ORDERABLES [facility] [place] [address] * Phosphorus (10/10/2024 12:33 AM EST) Phosphorus 3.8 2.5 - 4.5 mg/dL 10/10/2024 1:12 AM EST [facility] Blood VENOUS BLOOD SPECIMEN / Unknown Venipuncture / Unknown 10/10/2024 12:33 AM EST 10/10/2024 12:43 AM EST Hayley Torres MD CHEMISTRY ORDERABLES [facility] [place] [address] * Magnesium (10/10/2024 12:33 AM EST) Magnesium 0.81 0.69 - 1.07 mMol/L 10/10/2024 1:12 AM EST [facility] Blood VENOUS BLOOD SPECIMEN / Unknown Venipuncture / Unknown 10/10/2024 12:33 AM EST 10/10/2024 12:43 AM EST Hayley Torres MD CHEMISTRY ORDERABLES Performing Organization Address City/[facility]/ZIP Co de Phone Number [facility] [place] [address] * POC, GLUCOSE (10/10/2024 12:31 AM EST) Glucometer, POC 119 65 - 199 mg/dL 10/10/2024 12:32 AM EST [facility] Comment:Supplemental ranges: <140 mg/dL before meals <180 mg/dL all other times of the day. Blood CAPILLARY BLOOD / Unknown 10/10/2024 12:31 AM EST 10/10/2024 12:32 AM EST Hayley Torres MD POINT OF CARE TEST O RDERABLES Performing Organization Address [facility] Co de Phone Number [facility] [place] [address] * POC, GLUCOSE (10/09/2024 8:16 PM EST) Glucometer, POC 104 65 - 199 mg/dL 10/09/2024 8:16 PM EST [facility] Comment:Supplemental ranges: <140 mg/dL before meals <180 mg/dL all other times of the day. Blood CAPILLARY BLOOD / Unknown 10/09/2024 8:16 PM EST 10/09/2024 8:16 PM EST Hayley Torres MD POINT OF CARE TEST O RDERABLES Performing Organization Address City/[facility]/ZIP Co de Phone Number [facility] [place] [address] * POC, GLUCOSE (10/09/2024 3:57 PM EST) Glucometer, POC 120 65 - 199 mg/dL 10/09/2024 3:57 PM EST [facility] Comment:Supplemental ranges: <140 mg/dL before meals <180 mg/dL all other times of the day. Blood CAPILLARY BLOOD / Unknown 10/09/2024 3:57 PM EST 10/09/2024 3:57 PM EST Hayley Torres MD POINT OF CARE TEST O RDERAHERNANDEZ [facility] [place] [address] * Place PICC Line: Contact Vascular Access Page [phone] Extremity to exclude: No restrictions; Is PICC [...] to the planned procedure. Hand Hygiene: The wood heel flap inserter did perform hand hygiene prior to line insertion. Catheter type: PICC Lot number: [id number] Procedure Technique: Skin was prepped with chlorhexidine. [...] Guidance (IV Team) (10/09/2024 1:55 PM EST) CallVU WORKSTATION ID [id number] [facility] Anatomical Region Laterality Modality N/A Radio Fluoroscop [...] who have questions please contact the health pediatric care coordinator that requested your imaging first. ? Electronically signed by: Terell Salvador MD, [facility] ([phone]), at 10/09/2024 3:30 PM Narrative 10/09/2024 3:30 [...] patients who have questions please contactthe health pediatric care coordinator that requested your imaging first. María Carranza APRN [facility] * POC, GLUCOSE (10/09/2024 11:40 AM EST) [facility] Glucometer, POC 180 65 - 199 mg/dL 10/09/2024 11:40 AM EST [facility] Comment:Supplemental ranges: <140 mg/dL before meals <180 mg/dL all other times of the day. Blood CAPILLARY BLOOD / Unknown 10/09/2024 11:40 AM EST 10/09/2024 11:41 AM EST Hayley Torres MD POINT OF CARE TEST O RDERAHERNANDEZ Performing Organization Address [facility] de Phone Number [facility] [place] [address] * (ABNORMAL) POC, GLUCOSE (10/09/2024 7:35 AM EST) Glucometer, POC 215(H) 65 - 199 mg/dL 10/09/2024 7:36 AM EST [facility] Comment:Supplemental ranges: <140 mg/dL before meals <180 mg/dL all other times of the day. Blood CAPILLARY BLOOD / Unknown 10/09/2024 7:35 AM EST 10/09/2024 7:36 AM EST Hayley Torres MD POINT OF CARE TEST O GILDA Performing Organization Address [facility] de Phone Number [facility] [place] [address] * POC, GLUCOSE (10/09/2024 4:26 AM EST) Glucometer, POC 175 65 - 199 mg/dL 10/09/2024 4:26 AM EST [facility] Comment:Supplemental ranges: <140 mg/dL before meals <180 mg/dL all other times of the day. Blood CAPILLARY BLOOD / Unknown 10/09/2024 4:26 AM EST 10/09/2024 4:26 AM EST Hayley Torres MD POINT OF CARE TEST O GILDA Performing Organization Address [facility] Co de Phone Number [facility] [place] [address] * (ABNORMAL) CBC (with Diff) (10/09/2024 12:45 AM EST) White Blood Cell 11.27(H) 4.00 - 9.50 x10(3)/mc L 10/09/2024 1:31 AM EST [facility] Red Blood Cell 3.74(L) 4.58 - 5.54 x10(6)/mc L 10/09/2024 1:31 AM [facility] Hemoglobin 10.8(L) 13.7 - 16.5 g/dL 10/09/2024 1:31 AM [facility] Hematocrit 33.5(L) 40.5 - 48.5 % 10/09/2024 1:31 AM [facility] Mean Cell Volume 89.6 82.9 - 93.1 fL 10/09/2024 1:31 AM [facility] Mean Cell Hemoglobin 28.9 27.5 - 32.1 pg 10/09/2024 1:31 AM [facility] Mean Cell Hemoglobin Concentration 32.2 32.0 - 35.7 g/dL 10/09/2024 1:31 AM [facility] Platelet 886(H) 145 - 357 x10(3)/mc L 10/09/2024 1:31 AM [facility] Mean Platelet Volume 9.5 7.6 - 12.9 fL 10/09/2024 1:31 AM [facility] RDW Standard Deviation 47.7(H) 36.0 - 45.0 fL 10/09/2024 1:31 AM [facility] RDW coefficient of variation 14.6(H) 11.4 - 13.8 % 10/09/2024 1:31 AM [facility] NRBC% auto 0.0 % 10/09/2024 1:31 AM [facility] NRBC Absolute <0.01 <0.01 x10(3)/mc L 10/09/2024 1:31 AM [facility] Neutrophil % 61.7 % 10/09/2024 1:31 AM [facility] Neutrophil Absolute (ANC) - Automated 6.95(H) 1.70 - 6.10 x10(3)/mc L 10/09/2024 1:31 AM [facility] Lymph % 28.3 % 10/09/2024 1:31 AM [facility] Lymph Absolute 3.19 0.90 - 3.20 x10(3)/mc L 10/09/2024 1:31 AM [facility] Monocyte % 6.8 % 10/09/2024 1:31 AM [facility] Monocyte Absolute 0.77 0.30 - 0.90 x10(3)/mc L 10/09/2024 1:31 AM [facility] Eos % 1.5 % 10/09/2024 1:31 AM [facility] Eos Absolute 0.17 0.00 - 0.40 x10(3)/mc L 10/09/2024 1:31 AM [facility] Basophil % 1.1 % 10/09/2024 1:31 AM [facility] Baso Absolute 0.12(H) 0.00 - 0.10 x10(3)/mc L 10/09/2024 1:31 AM [facility] Immature Gran % 0.6 % 1:31 AM [facility] Immature Gran Absolute 0.07(H) 0.00 - 0.04 x10(3)/mc L 10/09/2024 1:31 AM [facility] Blood VENOUS BLOOD SPECIMEN / Unknown Venipuncture / Unknown 10/09/2024 12:45 AM EST 10/09/2024 1:27 AM EST Hayley Torres MD HEMATOLOGY ORDERABLE S [facility] [place] [address] * (ABNORMAL) Basic Metabolic Panel (10/09/2024 12:45 AM EST) Glucose 135 65 - 199 mg/dL 10/09/2024 1:54 AM [facility] Comment:Glucose Concentratio n >=200 mg/dL plus symptoms is consistent with Diabetes Mellitus. Blood Urea Nitrogen 22(H) 10 - 20 mg/dL 10/09/2024 1:54 AM [facility] Creatinine 0.53(L) 0.80 - 1.50 mg/dL 10/09/2024 1:54 AM [facility] Sodium 138 135 - 145 mMol/L 10/09/2024 1:54 AM [facility] Potassium 4.1 3.5 - 5.0 mMol/L 10/09/2024 1:54 AM [facility] Chloride 102 98 - 107 mMol/L 10/09/2024 1:54 AM [facility] Carbon Dioxide 24 22 - 31 mMol/L 10/09/2024 1:54 AM [facility] Anion Gap 12 5 - 15 mMol/L 10/09/2024 1:54 AM [facility] Calcium 9.4 8.5 - 10.5 mg/dL 10/09/2024 1:54 AM [facility] Est Glomerular Filtration Rate - Male 122 mL/min/1. 73 m?? 10/09/2024 1:54 AM [facility] Comment: This patient's estimated GFR [...] CHEMISTRY ORDERABLES [facility] [place] [address] * Phosphorus (10/09/2024 12:45 AM EST) Phosphorus 3.9 2.5 - 4.5 mg/dL 10/09/2024 1:54 AM EST [facility] Blood VENOUS BLOOD SPECIMEN / Unknown Venipuncture / Unknown 10/09/2024 12:45 AM EST 10/09/2024 1:27 AM EST Hayley Torres MD CHEMISTRY ORDERABLES Performing Organization Address City/[facility]/ZIP Co de Phone Number [facility] [place] [address] * Magnesium (10/09/2024 12:45 AM EST) Magnesium 0.80 0.69 - 1.07 mMol/L 10/09/2024 1:54 AM EST [facility] Blood VENOUS BLOOD SPECIMEN / Unknown Venipuncture / Unknown 10/09/2024 12:45 AM EST 10/09/2024 1:27 AM EST Hayley Torres MD CHEMISTRY ORDERABLES Performing Organization Address City/[facility]/ZIP Co de Phone Number [facility] [place] [address] * POC, GLUCOSE (10/09/2024 12:11 AM EST) [facility] Signature Glucometer, POC 157 65 - 199 mg/dL 10/09/2024 12:11 AM EST [facility] Comment:Supplemental ranges: <140 mg/dL before meals <180 mg/dL all other times of the day. Blood CAPILLARY BLOOD / Unknown 10/09/2024 12:11 AM EST 10/09/2024 12:11 AM EST Hayley Torres MD POINT OF CARE TEST O RDERABLES Performing Organization Address City/[facility]/ZIP Co de Phone Number [facility] [place] [address] * POC, GLUCOSE (10/08/2024 7:25 PM EST) Glucometer, POC 157 65 - 199 mg/dL 10/08/2024 7:25 PM EST [facility] Comment:Supplemental ranges: <140 mg/dL before meals <180 mg/dL all other times of the day. Blood CAPILLARY BLOOD / Unknown 10/08/2024 7:25 PM EST 10/08/2024 7:25 PM EST Hayley Torres MD POINT OF CARE TEST O GILDA Performing Organization Address City/[facility]/ZIP Co de Phone Number [facility] [place] [address] * POC, GLUCOSE (10/08/2024 5:54 PM EST) Glucometer, POC 198 65 - 199 mg/dL 10/08/2024 5:54 PM EST [facility] Comment:Supplemental ranges: <140 mg/dL before meals <180 mg/dL all other times of the day. Blood CAPILLARY BLOOD / Unknown 10/08/2024 5:54 PM EST 10/08/2024 5:54 PM EST Hayley Torres MD POINT OF CARE TEST O GILDA Performing Organization Address [facility] Co de Phone Number [facility] [place] [address] * (ABNORMAL) POC, GLUCOSE (10/08/2024 4:08 PM EST) Glucometer, POC 281(H) 65 - 199 mg/dL 10/08/2024 4:08 PM EST [facility] Comment:Supplemental ranges: <140 mg/dL before meals <180 mg/dL all other times of the day. Blood CAPILLARY BLOOD / Unknown 10/08/2024 4:08 PM EST 10/08/2024 4:09 PM EST Hayley Torres MD POINT OF CARE TEST O GILDA Performing Organization Address City/[facility]/ZIP Co de Phone Number [facility] [place] [address] * POC, GLUCOSE (10/08/2024 12:44 PM EST) Glucometer, POC 146 65 - 199 mg/dL 10/08/2024 12:44 PM EST [facility] Comment:Supplemental ranges: <140 mg/dL before meals <180 mg/dL all other times of the day. Blood CAPILLARY BLOOD / Unknown 10/08/2024 12:44 PM EST 10/08/2024 12:44 PM EST Hayley Torres MD POINT OF CARE TEST O GILDA Performing Organization Address City/[facility]/ZIP Co de Phone Number [facility] [place] [address] * POC, GLUCOSE (10/08/2024 8:30 AM EST) Glucometer, POC 172 65 - 199 mg/dL 10/08/2024 8:30 AM EST [facility] Comment:Supplemental ranges: <140 mg/dL before meals <180 mg/dL all other times of the day. Blood CAPILLARY BLOOD / Unknown 10/08/2024 8:30 AM EST 10/08/2024 8:30 AM EST Hayley Torres MD POINT OF CARE TEST O GILDA [facility] [place] [address] * Vancomycin Level, Random (10/08/2024 5:59 AM EST) Vancomycin, Random 6.8 mg/L 2023 7:58 AM EST [facility] Comment:This level is for de termination of the patient's vancomycin vzjg-wwjlu-rze-curve (AUC) value. Contact the inpatient pharmacy for interpretation. Blood VENOUS BLOOD SPECIMEN / Unknown Venipuncture / Unknown 10/08/2024 5:59 AM EST 10/08/2024 7:29 AM EST Hayley Torres MD CHEMISTRY ORDERABLES Performing Organization Address City/[facility]/ZIP Co de Phone Number [facility] [place] [address] * POC, GLUCOSE (10/08/2024 4:02 AM EST) Pathologist [facility] Glucometer, POC 163 65 - 199 mg/dL 10/08/2024 4:02 AM [facility] Comment:Supplemental ranges: <140 mg/dL before meals <180 mg/dL all other times of the day. Blood CAPILLARY BLOOD / Unknown 10/08/2024 4:02 AM EST 10/08/2024 4:02 AM EST Hayley Torres MD POINT OF CARE TEST O RDERABLES Performing Organization Address [facility] Co de Phone Number [facility] [place] [address] * (ABNORMAL) CBC (with Diff) (10/08/2024 12:08 AM EST) [facility] White Blood Cell 10.35(H) 4.00 - 9.50 x10(3)/mc L 10/08/2024 12:29 AM [facility] Red Blood Cell 3.53(L) 4.58 - 5.54 x10(6)/mc L 10/08/2024 12:29 AM [facility] Hemoglobin 10.2(L) 13.7 - 16.5 g/dL 10/08/2024 12:29 AM [facility] Hematocrit 31.7(L) 40.5 - 48.5 % 10/08/2024 12:29 AM [facility] Mean Cell Volume 89.8 82.9 - 93.1 fL 10/08/2024 12:29 AM [facility] Mean Cell Hemoglobin 28.9 27.5 - 32.1 pg 10/08/2024 12:29 AM [facility] Mean Cell Hemoglobin Concentration 32.2 32.0 - 35.7 g/dL 10/08/2024 12:29 AM [facility] Platelet 778(H) 145 - 357 x10(3)/mc L 10/08/2024 12:29 AM [facility] Mean Platelet Volume 9.1 7.6 - 12.9 fL 10/08/2024 12:29 AM [facility] RDW Standard Deviation 47.5(H) 36.0 - 45.0 fL 10/08/2024 12:29 AM [facility] RDW coefficient of variation 14.6(H) 11.4 - 13.8 % 10/08/2024 12:29 AM [facility] NRBC% auto 0.0 % 10/08/2024 12:29 AM [facility] NRBC Absolute <0.01 <0.01 x10(3)/mc L 10/08/2024 12:29 AM [facility] Neutrophil % 60.9 % 10/08/2024 12:29 AM [facility] Neutrophil Absolute (ANC) - Automated 6.30(H) 1.70 - 6.10 x10(3)/mc L 10/08/2024 12:29 AM [facility] Lymph % 28.4 % 10/08/2024 12:29 AM [facility] Lymph Absolute 2.94 0.90 - 3.20 x10(3)/mc L 10/08/2024 12:29 AM [facility] Monocyte % 7.2 % 10/08/2024 12:29 AM [facility] Monocyte Absolute 0.75 0.30 - 0.90 x10(3)/mc L 10/08/2024 12:29 AM [facility] Eos % 1.7 % 10/08/2024 12:29 AM [facility] Eos Absolute 0.18 0.00 - 0.40 x10(3)/mc L 10/08/2024 12:29 AM [facility] Basophil % 1.0 % 10/08/2024 12:29 AM [facility] Baso Absolute 0.10 0.00 - 0.10 x10(3)/mc L 10/08/2024 12:29 AM [facility] Immature Gran % 0.8 % 12:29 AM [facility] Immature Gran Absolute 0.08(H) 0.00 - 0.04 x10(3)/mc L 10/08/2024 12:29 AM [facility] Blood VENOUS BLOOD SPECIMEN / Unknown Venipuncture / Unknown 10/08/2024 12:08 AM EST 10/08/2024 12:23 AM EST Hayley Torres MD HEMATOLOGY ORDERABLE S [facility] [place] [address] * (ABNORMAL) Basic Metabolic Panel (10/08/2024 12:08 AM EST) Glucose 151 65 - 199 mg/dL 10/08/2024 12:50 AM [facility] Comment:Glucose Concentratio n >=200 mg/dL plus symptoms is consistent with Diabetes Mellitus. Blood Urea Nitrogen 19 10 - 20 mg/dL 10/08/2024 12:50 AM [facility] Creatinine 0.60(L) 0.80 - 1.50 mg/dL 10/08/2024 12:50 AM [facility] Sodium 135 135 - 145 mMol/L 10/08/2024 12:50 AM [facility] Potassium 3.8 3.5 - 5.0 mMol/L 10/08/2024 12:50 AM [facility] Chloride 101 98 - 107 mMol/L 10/08/2024 12:50 AM [facility] Carbon Dioxide 25 22 - 31 mMol/L 10/08/2024 12:50 AM [facility] Anion Gap 9 5 - 15 mMol/L 10/08/2024 12:50 AM EST [facility] Calcium 9.2 8.5 - 10.5 mg/dL 10/08/2024 12:50 AM EST [facility] Est Glomerular Filtration Rate - Male 118 mL/min/1. 73 m?? 10/08/2024 12:50 AM EST [facility] Comment: This patient's estimated GFR [...] CHEMISTRY ORDERABLES [facility] [place] [address] * Phosphorus (10/08/2024 12:08 AM EST) Phosphorus 3.4 2.5 - 4.5 mg/dL 10/08/2024 12:50 AM EST [facility] Blood VENOUS BLOOD SPECIMEN / Unknown Venipuncture / Unknown 10/08/2024 12:08 AM EST 10/08/2024 12:23 AM EST Hayley Torres MD CHEMISTRY ORDERABLES [facility] [place] [address] * Magnesium (10/08/2024 12:08 AM EST) Magnesium 0.85 0.69 - 1.07 mMol/L 10/08/2024 12:50 AM EST [facility] Blood VENOUS BLOOD SPECIMEN / Unknown Venipuncture / Unknown 10/08/2024 12:08 AM EST 10/08/2024 12:23 AM EST Hayley Torres MD CHEMISTRY ORDERABLES Performing Organization Address [facility] Co de Phone Number [facility] [place] [address] * CK (10/08/2024 12:08 AM EST) Creatine Kinase 24 0 - 200 unit/L 10/08/2024 12:50 AM EST [facility] Blood VENOUS BLOOD SPECIMEN / Unknown Venipuncture / Unknown 10/08/2024 12:08 AM EST 10/08/2024 12:23 AM EST Hayley Torres MD CHEMISTRY ORDERABLES Performing Organization Address [facility] Co de Phone Number [facility] [place] [address] * POC, GLUCOSE (10/08/2024 12:05 AM EST) Glucometer, POC 100 65 - 199 mg/dL 10/08/2024 12:05 AM EST [facility] Comment:Supplemental ranges: <140 mg/dL before meals <180 mg/dL all other times of the day. Blood CAPILLARY BLOOD / Unknown 10/08/2024 12:05 AM EST 10/08/2024 12:05 AM EST Hayley Torres MD POINT OF CARE TEST O RDERABLES Performing Organization Address [facility] Co de Phone Number [facility] [place] [address] * POC, GLUCOSE (10/07/2024 8:29 PM EST) Glucometer, POC 107 65 - 199 mg/dL 10/07/2024 8:30 PM EST [facility] Comment:Supplemental ranges: <140 mg/dL before meals <180 mg/dL all other times of the day. Blood CAPILLARY BLOOD / Unknown 10/07/2024 8:29 PM EST 10/07/2024 8:30 PM EST Hayley Torres MD POINT OF CARE TEST O RDERAHERNANDEZ Performing Organization Address City/[facility]/ZIP Co de Phone Number [facility] [place] [address] * POC, GLUCOSE (10/07/2024 4:33 PM EST) Glucometer, POC 129 65 - 199 mg/dL 10/07/2024 4:33 PM EST [facility] Comment:Supplemental ranges: <140 mg/dL before meals <180 mg/dL all other times of the day. Blood CAPILLARY BLOOD / Unknown 10/07/2024 4:33 PM EST 10/07/2024 4:34 PM EST Hayley Torres MD POINT OF CARE TEST O GILDA Performing Organization Address [facility] Co de Phone Number [facility] [place] [address] * (ABNORMAL) POC, GLUCOSE (10/07/2024 10:58 AM EST) Glucometer, POC 221(H) 65 - 199 mg/dL 10/07/2024 10:59 AM EST [facility] Comment:Supplemental ranges: <140 mg/dL before meals <180 mg/dL all other times of the day. Blood CAPILLARY BLOOD / Unknown 10/07/2024 10:58 AM EST 10/07/2024 10:59 AM EST Hayley Torres MD POINT OF CARE TEST O GILDA Performing Organization Address City/[facility]/ZIP Co de Phone Number [facility] [place] [address] * (ABNORMAL) POC, GLUCOSE (10/07/2024 7:42 AM EST) Glucometer, POC 201(H) 65 - 199 mg/dL 10/07/2024 7:42 AM EST [facility] Comment:Supplemental ranges: <140 mg/dL before meals <180 mg/dL all other times of the day. Blood CAPILLARY BLOOD / Unknown 10/07/2024 7:42 AM EST 10/07/2024 7:43 AM EST Hayley Torres MD POINT OF CARE TEST O GILDA Performing Organization Address [facility]/ZIP Co de Phone Number [facility] [place] [address] * POC, GLUCOSE (10/07/2024 3:58 AM EST) [facility] Glucometer, POC 150 65 - 199 mg/dL 10/07/2024 3:58 AM EST [facility] Comment:Supplemental ranges: <140 mg/dL before meals <180 mg/dL all other times of the day. Blood CAPILLARY BLOOD / Unknown 10/07/2024 3:58 AM EST 10/07/2024 3:58 AM EST Hayley Torres MD POINT OF CARE TEST O GILDA Performing Organization Address City/[facility]/ZIP Co de Phone Number [facility] [place] [address] * (ABNORMAL) CBC (with Diff) (10/07/2024 12:06 AM EST) [facility] White Blood Cell 11.27(H) 4.00 - 9.50 x10(3)/mc L 10/07/2024 12:19 AM EST [facility] Red Blood Cell 3.47(L) 4.58 - 5.54 x10(6)/mc L 10/07/2024 12:19 AM EST [facility] Hemoglobin 10.1(L) 13.7 - 16.5 g/dL 10/07/2024 12:19 AM EST [facility] Hematocrit 30.9(L) 40.5 - 48.5 % 10/07/2024 12:19 AM [facility] Mean Cell Volume 89.0 82.9 - 93.1 fL 10/07/2024 12:19 AM [facility] Mean Cell Hemoglobin 29.1 27.5 - 32.1 pg 10/07/2024 12:19 AM [facility] Mean Cell Hemoglobin Concentration 32.7 32.0 - 35.7 g/dL 10/07/2024 12:19 AM [facility] Platelet 789(H) 145 - 357 x10(3)/mc L 10/07/2024 12:19 AM [facility] Mean Platelet Volume 9.0 7.6 - 12.9 fL 10/07/2024 12:19 AM [facility] RDW Standard Deviation 45.7(H) 36.0 - 45.0 fL 10/07/2024 12:19 AM [facility] RDW coefficient of variation 14.3(H) 11.4 - 13.8 % 10/07/2024 12:19 AM [facility] NRBC% auto 0.0 % 10/07/2024 12:19 AM [facility] NRBC Absolute <0.01 <0.01 x10(3)/mc L 10/07/2024 12:19 AM [facility] Neutrophil % 62.9 % 10/07/2024 12:19 AM [facility] Neutrophil Absolute (ANC) - Automated 7.09(H) 1.70 - 6.10 x10(3)/mc L 10/07/2024 12:19 AM [facility] Lymph % 28.3 % 10/07/2024 12:19 AM [facility] Lymph Absolute 3.19 0.90 - 3.20 x10(3)/mc L 10/07/2024 12:19 AM [facility] Monocyte % 5.7 % 10/07/2024 12:19 AM [facility] Monocyte Absolute 0.64 0.30 - 0.90 x10(3)/mc L 10/07/2024 12:19 AM EST [facility] Eos % 1.5 % 10/07/2024 12:19 AM [facility] Eos Absolute 0.17 0.00 - 0.40 x10(3)/mc L 10/07/2024 12:19 AM [facility] Basophil % 0.7 % 10/07/2024 12:19 AM [facility] Baso Absolute 0.08 0.00 - 0.10 x10(3)/mc L 10/07/2024 12:19 AM [facility] Immature Gran % 0.9 % 12:19 AM [facility] Immature Gran Absolute 0.10(H) 0.00 - 0.04 x10(3)/mc L 10/07/2024 12:19 AM [facility] Blood VENOUS BLOOD SPECIMEN / Unknown Venipuncture / Unknown 10/07/2024 12:06 AM EST 10/07/2024 12:11 AM EST Hayley Torres MD HEMATOLOGY ORDERABLE S [facility] [place] [address] * (ABNORMAL) Basic Metabolic Panel (10/07/2024 12:06 AM EST) Glucose 145 65 - 199 mg/dL 10/07/2024 12:40 AM [facility] Comment:Glucose Concentratio n >=200 mg/dL plus symptoms is consistent with Diabetes Mellitus. Blood Urea Nitrogen 18 10 - 20 mg/dL 10/07/2024 12:40 AM [facility] Creatinine 0.61(L) 0.80 - 1.50 mg/dL 10/07/2024 12:40 AM [facility] Sodium 139 135 - 145 mMol/L 10/07/2024 12:40 AM [facility] Potassium 4.0 3.5 - 5.0 mMol/L 10/07/2024 12:40 AM EST [facility] Chloride 104 98 - 107 mMol/L 10/07/2024 12:40 AM EST [facility] Carbon Dioxide 25 22 - 31 mMol/L 10/07/2024 12:40 AM EST [facility] Anion Gap 10 5 - 15 mMol/L 10/07/2024 12:40 AM EST [facility] Calcium 9.0 8.5 - 10.5 mg/dL 10/07/2024 12:40 AM EST [facility] Est Glomerular Filtration Rate - Male 117 mL/min/1. 73 m?? 10/07/2024 12:40 AM EST [facility] Comment: This patient's estimated GFR [...] CHEMISTRY ORDERABLES [facility] [place] [address] * Phosphorus (10/07/2024 12:06 AM EST) Phosphorus 4.2 2.5 - 4.5 mg/dL 10/07/2024 12:40 AM EST [facility] Blood VENOUS BLOOD SPECIMEN / Unknown Venipuncture / Unknown 10/07/2024 12:06 AM EST 10/07/2024 12:11 AM EST Hayley Torres MD CHEMISTRY ORDERABLES Performing Organization Address [facility] Co de Phone Number [facility] [place] [address] * Magnesium (10/07/2024 12:06 AM EST) Magnesium 0.85 0.69 - 1.07 mMol/L 10/07/2024 12:40 AM EST [facility] Blood VENOUS BLOOD SPECIMEN / Unknown Venipuncture / Unknown 10/07/2024 12:06 AM EST 10/07/2024 12:11 AM EST Hayley Torres MD CHEMISTRY ORDERABLES Performing Organization Address [facility] Co de Phone Number [facility] [place] [address] * POC, GLUCOSE (10/07/2024 12:04 AM EST) Glucometer, POC 149 65 - 199 mg/dL 10/07/2024 12:04 AM EST [facility] Comment:Supplemental ranges: <140 mg/dL before meals <180 mg/dL all other times of the day. Blood CAPILLARY BLOOD / Unknown 10/07/2024 12:04 AM EST 10/07/2024 12:05 AM EST Hayley Torres MD POINT OF CARE TEST O RDERABLES Performing Organization Address City/[facility] Co de Phone Number [facility] [place] [address] * POC, GLUCOSE (10/06/2024 7:24 PM EST) Glucometer, POC 151 65 - 199 mg/dL 10/06/2024 7:24 PM EST [facility] Comment:Supplemental ranges: <140 mg/dL before meals <180 mg/dL all other times of the day. Blood CAPILLARY BLOOD / Unknown 10/06/2024 7:24 PM EST 10/06/2024 7:24 PM EST Hayley Torres MD POINT OF CARE TEST O GILDA Performing Organization Address [facility] de Phone Number [facility] [place] [address] * POC, GLUCOSE (10/06/2024 5:32 PM EST) Glucometer, POC 126 65 - 199 mg/dL 10/06/2024 5:32 PM EST [facility] Comment:Supplemental ranges: <140 mg/dL before meals <180 mg/dL all other times of the day. Blood CAPILLARY BLOOD / Unknown 10/06/2024 5:32 PM EST 10/06/2024 5:32 PM EST Hayley Torres MD POINT OF CARE TEST O GILDA Performing Organization Address [facility] de Phone Number [facility] [place] [address] * XR PICC Placement Over 5 Years with Imaging Guidance (IV Team) (10/06/2024 3:04 PM EST) WORKSTATION ID [id number] RAD Anatomical Region Laterality Modality N/A Radio [...] who have questions please contact the health pediatric care coordinator that requested your imaging first. ? Electronically signed by: Charles Hamilton MD, [facility] ??([phone]), at 10/06/2024 3:43 PM Narrative 10/06/2024 3:43 [...] patients who have questions please contactthe health pediatric care coordinator that requested your imaging first. Electronically signed by: Charles Hamilton MD, [facility]([phone]), at 10/06/2024 3:43 PM Hayley Torres MD IMG FLUORO ORDERABLE S * Place PICC Line: Contact Vascular Access Page [phone] Extremity to exclude: No restrictions; Is PICC [...] to the planned procedure. Hand Hygiene: The wood heel flap inserter did perform hand hygiene prior to line insertion. Catheter type: PICC Lot number: [id number] Procedure Technique: Skin was prepped with chlorhexidine. [...] * POC, GLUCOSE (10/06/2024 12:12 PM EST) [facility] Signature Glucometer, POC 137 65 - 199 mg/dL 10/06/2024 12:12 PM EST [facility] Comment:Supplemental ranges: <140 mg/dL before meals <180 mg/dL all other times of the day. Blood CAPILLARY BLOOD / Unknown 10/06/2024 12:12 PM EST 10/06/2024 12:12 PM EST Hayley Torres MD POINT OF CARE TEST O RDERAHERNANDEZ Performing Organization Address City/[facility]/ZIP Co de Phone Number [facility] [place] [address] * (ABNORMAL) POC, GLUCOSE (10/06/2024 7:34 AM EST) Glucometer, POC 209(H) 65 - 199 mg/dL 10/06/2024 7:34 AM EST [facility] Comment:Supplemental ranges: <140 mg/dL before meals <180 mg/dL all other times of the day. Blood CAPILLARY BLOOD / Unknown 10/06/2024 7:34 AM EST 10/06/2024 7:34 AM EST Hayley Torres MD POINT OF CARE TEST O GILDA Performing Organization Address City/[facility]/ZIP Co de Phone Number [facility] [place] [address] * POC, GLUCOSE (10/06/2024 3:29 AM EST) Glucometer, POC 151 65 - 199 mg/dL 10/06/2024 3:29 AM EST [facility] Comment:Supplemental ranges: <140 mg/dL before meals <180 mg/dL all other times of the day. Blood CAPILLARY BLOOD / Unknown 10/06/2024 3:29 AM EST 10/06/2024 3:29 AM EST Hayley Torres MD POINT OF CARE TEST O GILDA [facility] [place] [address] * Vancomycin Level, Random (10/06/2024 12:03 AM EST) Pathologist [facility] Vancomycin, Random 20.5 mg/L 2023 9:00 AM [facility] Comment:This level is for de termination of the patient's vancomycin rthp-dlqdr-sen-curve (AUC) value. Contact the inpatient pharmacy for interpretation. Blood VENOUS BLOOD SPECIMEN / Unknown Venipuncture / Unknown 10/06/2024 12:03 AM EST 10/06/2024 12:15 AM EST Hayley Torres MD CHEMISTRY ORDERABLES [facility] [place] [address] * (ABNORMAL) CBC (with Diff) (10/06/2024 12:03 AM EST) Pathologist [facility] White Blood Cell 12.26(H) 4.00 - 9.50 x10(3)/mc L 10/06/2024 12:19 AM [facility] Red Blood Cell 3.49(L) 4.58 - 5.54 x10(6)/mc L 10/06/2024 12:19 AM [facility] Hemoglobin 10.1(L) 13.7 - 16.5 g/dL 10/06/2024 12:19 AM [facility] Hematocrit 30.9(L) 40.5 - 48.5 % 10/06/2024 12:19 AM [facility] Mean Cell Volume 88.5 82.9 - 93.1 fL 10/06/2024 12:19 AM [facility] Mean Cell Hemoglobin 28.9 27.5 - 32.1 pg 10/06/2024 12:19 AM [facility] Mean Cell Hemoglobin Concentration 32.7 32.0 - 35.7 g/dL 10/06/2024 12:19 AM [facility] Platelet 772(H) 145 - 357 x10(3)/mc L 10/06/2024 12:19 AM [facility] Mean Platelet Volume 9.0 7.6 - 12.9 fL 10/06/2024 12:19 AM [facility] RDW Standard Deviation 46.0(H) 36.0 - 45.0 fL 10/06/2024 12:19 AM [facility] RDW coefficient of variation 14.5(H) 11.4 - 13.8 % 10/06/2024 12:19 AM [facility] NRBC% auto 0.0 % 10/06/2024 12:19 AM [facility] NRBC Absolute <0.01 <0.01 x10(3)/mc L 10/06/2024 12:19 AM [facility] Neutrophil % 66.7 % 10/06/2024 12:19 AM [facility] Neutrophil Absolute (ANC) - Automated 8.18(H) 1.70 - 6.10 x10(3)/mc L 10/06/2024 12:19 AM [facility] Lymph % 24.1 % 10/06/2024 12:19 AM [facility] Lymph Absolute 2.95 0.90 - 3.20 x10(3)/mc L 10/06/2024 12:19 AM [facility] Monocyte % 6.2 % 10/06/2024 12:19 AM [facility] Monocyte Absolute 0.76 0.30 - 0.90 x10(3)/mc L 10/06/2024 12:19 AM [facility] Eos % 1.3 % 10/06/2024 12:19 AM [facility] Eos Absolute 0.16 0.00 - 0.40 x10(3)/mc L 10/06/2024 12:19 AM [facility] Basophil % 0.5 % 10/06/2024 12:19 AM [facility] Baso Absolute 0.06 0.00 - 0.10 x10(3)/mc L 10/06/2024 12:19 AM [facility] Immature Gran % 1.2 % 12:19 AM [facility] Immature Gran Absolute 0.15(H) 0.00 - 0.04 x10(3)/mc L 10/06/2024 12:19 AM [facility] Blood VENOUS BLOOD SPECIMEN / Unknown Venipuncture / Unknown 10/06/2024 12:03 AM EST 10/06/2024 12:15 AM EST Hayley Torres MD HEMATOLOGY ORDERABLE S [facility] [place] [address] * Basic Metabolic Panel (10/06/2024 12:03 AM EST) Glucose 94 65 - 199 mg/dL 10/06/2024 12:44 AM [facility] Comment:Glucose Concentratio n >=200 mg/dL plus symptoms is consistent with Diabetes Mellitus. Blood Urea Nitrogen 17 10 - 20 mg/dL 10/06/2024 12:44 AM [facility] Creatinine 0.85 0.80 - 1.50 mg/dL 10/06/2024 12:44 AM [facility] Sodium 139 135 - 145 mMol/L 10/06/2024 12:44 AM [facility] Potassium 4.3 3.5 - 5.0 mMol/L 10/06/2024 12:44 AM [facility] Chloride 103 98 - 107 mMol/L 10/06/2024 12:44 AM [facility] Carbon Dioxide 22 22 - 31 mMol/L 10/06/2024 12:44 AM [facility] Anion Gap 14 5 - 15 mMol/L 10/06/2024 12:44 AM [facility] Calcium 8.8 8.5 - 10.5 mg/dL 10/06/2024 12:44 AM [facility] Est Glomerular Filtration Rate - Male 106 mL/min/1. 73 m?? 10/06/2024 12:44 AM EST [facility] Comment: This patient's estimated GFR [...] CHEMISTRY ORDERABLES [facility] [place] [address] * Phosphorus (10/06/2024 12:03 AM EST) Phosphorus 4.3 2.5 - 4.5 mg/dL 10/06/2024 12:44 AM EST [facility] Blood VENOUS BLOOD SPECIMEN / Unknown Venipuncture / Unknown 10/06/2024 12:03 AM EST 10/06/2024 12:15 AM EST Hayley Torres MD CHEMISTRY ORDERABLES [facility] [place] [address] * Magnesium (10/06/2024 12:03 AM EST) Magnesium 0.83 0.69 - 1.07 mMol/L 10/06/2024 12:44 AM EST [facility] Blood VENOUS BLOOD SPECIMEN / Unknown Venipuncture / Unknown 10/06/2024 12:03 AM EST 10/06/2024 12:15 AM EST Hayley Torres MD CHEMISTRY ORDERABLES Performing Organization Address [facility] Co de Phone Number [facility] [place] [address] * POC, GLUCOSE (10/06/2024 12:02 AM EST) Glucometer, POC 98 65 - 199 mg/dL 10/06/2024 12:02 AM EST [facility] Comment:Supplemental ranges: <140 mg/dL before meals <180 mg/dL all other times of the day. Blood CAPILLARY BLOOD / Unknown 10/06/2024 12:02 AM EST 10/06/2024 12:02 AM EST Hayley Torres MD POINT OF CARE TEST O RDERABLES Performing Organization Address [facility] Co de Phone Number [facility] [place] [address] * POC, GLUCOSE (10/05/2024 7:22 PM EST) Glucometer, POC 186 65 - 199 mg/dL 10/05/2024 7:23 PM EST [facility] Comment:Supplemental ranges: <140 mg/dL before meals <180 mg/dL all other times of the day. Blood CAPILLARY BLOOD / Unknown 10/05/2024 7:22 PM EST 10/05/2024 7:23 PM EST Hayley Torres MD POINT OF CARE TEST O RDTYESHA Performing Organization Address City/[facility] Co de Phone Number [facility] [place] [address] * POC, GLUCOSE (10/05/2024 5:35 PM EST) Glucometer, POC 177 65 - 199 mg/dL 10/05/2024 5:35 PM EST [facility] Comment:Supplemental ranges: <140 mg/dL before meals <180 mg/dL all other times of the day. Blood CAPILLARY BLOOD / Unknown 10/05/2024 5:35 PM EST 10/05/2024 5:35 PM EST Hayley Torres MD POINT OF CARE TEST O GILDA Performing Organization Address City/[facility] Co de Phone Number [facility] [place] [address] * POC, GLUCOSE (10/05/2024 3:57 PM EST) Glucometer, POC 141 65 - 199 mg/dL 10/05/2024 3:57 PM EST [facility] Comment:Supplemental ranges: <140 mg/dL before meals <180 mg/dL all other times of the day. Blood CAPILLARY BLOOD / Unknown 10/05/2024 3:57 PM EST 10/05/2024 3:57 PM EST Hayley Torres MD POINT OF CARE TEST O GILDA Performing Organization Address [facility] Co de Phone Number [facility] [place] [address] * POC, GLUCOSE (10/05/2024 11:50 AM EST) Glucometer, POC 134 65 - 199 mg/dL 10/05/2024 11:50 AM EST [facility] Comment:Supplemental ranges: <140 mg/dL before meals <180 mg/dL all other times of the day. Blood CAPILLARY BLOOD / Unknown 10/05/2024 11:50 AM EST 10/05/2024 11:50 AM EST Hayley Torres MD POINT OF CARE TEST O GILDA Performing Organization Address City/[facility]/ZIP Co de Phone Number [facility] [place] [address] * POC, GLUCOSE (10/05/2024 7:51 AM EST) Glucometer, POC 114 65 - 199 mg/dL 10/05/2024 7:51 AM EST [facility] Comment:Supplemental ranges: <140 mg/dL before meals <180 mg/dL all other times of the day. Blood CAPILLARY BLOOD / Unknown 10/05/2024 7:51 AM EST 10/05/2024 7:51 AM EST Hayley Torres MD POINT OF CARE TEST O GILDA Performing Organization Address City/[facility] Co de Phone Number [facility] [place] [address] * POC, GLUCOSE (10/05/2024 4:18 AM EST) Glucometer, POC 147 65 - 199 mg/dL 10/05/2024 4:18 AM EST [facility] Comment:Supplemental ranges: <140 mg/dL before meals <180 mg/dL all other times of the day. Blood CAPILLARY BLOOD / Unknown 10/05/2024 4:18 AM EST 10/05/2024 4:18 AM EST Hayley Torres MD POINT OF CARE TEST O GILDA Performing Organization Address [facility] Co de Phone Number [facility] [place] [address] * (ABNORMAL) CBC (with Diff) (10/04/2024 11:50 PM EST) White Blood Cell 12.73(H) 4.00 - 9.50 x10(3)/mc L 10/05/2024 12:10 AM EST [facility] Red Blood Cell 3.45(L) 4.58 - 5.54 x10(6)/mc L 10/05/2024 12:10 AM EST [facility] Hemoglobin 9.8(L) 13.7 - 16.5 g/dL 10/05/2024 12:10 [address] [facility] Hematocrit 30.6(L) 40.5 - 48.5 % 10/05/2024 12:10 AM EST [facility] Mean Cell Volume 88.7 82.9 - 93.1 fL 10/05/2024 12:10 AM [facility] Mean Cell Hemoglobin 28.4 27.5 - 32.1 pg 10/05/2024 12:10 AM [facility] Mean Cell Hemoglobin Concentration 32.0 32.0 - 35.7 g/dL 10/05/2024 12:10 AM [facility] Platelet 709(H) 145 - 357 x10(3)/mc L 10/05/2024 12:10 AM [facility] Mean Platelet Volume 8.9 7.6 - 12.9 fL 10/05/2024 12:10 AM [facility] RDW Standard Deviation 45.4(H) 36.0 - 45.0 fL 10/05/2024 12:10 AM [facility] RDW coefficient of variation 14.3(H) 11.4 - 13.8 % 10/05/2024 12:10 AM [facility] NRBC% auto 0.0 % 10/05/2024 12:10 AM [facility] NRBC Absolute <0.01 <0.01 x10(3)/mc L 10/05/2024 12:10 AM [facility] Neutrophil % 68.5 % 10/05/2024 12:10 AM [facility] Neutrophil Absolute (ANC) - Automated 8.72(H) 1.70 - 6.10 x10(3)/mc L 10/05/2024 12:10 AM [facility] Lymph % 21.3 % 10/05/2024 12:10 AM [facility] Lymph Absolute 2.71 0.90 - 3.20 x10(3)/mc L 10/05/2024 12:10 AM [facility] Monocyte % 5.5 % 10/05/2024 12:10 AM [facility] Monocyte Absolute 0.70 0.30 - 0.90 x10(3)/mc L 10/05/2024 12:10 AM EST [facility] Eos % 1.6 % 10/05/2024 12:10 AM [facility] Eos Absolute 0.20 0.00 - 0.40 x10(3)/mc L 10/05/2024 12:10 AM [facility] Basophil % 0.5 % 10/05/2024 12:10 AM [facility] Baso Absolute 0.07 0.00 - 0.10 x10(3)/mc L 10/05/2024 12:10 AM [facility] Immature Gran % 2.6 % 12:10 AM [facility] Immature Gran Absolute 0.33(H) 0.00 - 0.04 x10(3)/mc L 10/05/2024 12:10 AM [facility] Blood VENOUS BLOOD SPECIMEN / Unknown Venipuncture / Unknown 10/04/2024 11:50 PM EST 10/05/2024 12:03 AM EST Hayley Torres MD HEMATOLOGY ORDERABLE S [facility] [place] [address] * (ABNORMAL) Basic Metabolic Panel (10/04/2024 11:50 PM EST) Glucose 104 65 - 199 mg/dL 10/05/2024 12:35 AM [facility] Comment:Glucose Concentratio n >=200 mg/dL plus symptoms is consistent with Diabetes Mellitus. Blood Urea Nitrogen 13 10 - 20 mg/dL 10/05/2024 12:35 AM [facility] Creatinine 0.55(L) 0.80 - 1.50 mg/dL 10/05/2024 12:35 AM [facility] Sodium 140 135 - 145 mMol/L 10/05/2024 12:35 AM [facility] Potassium 3.9 3.5 - 5.0 mMol/L 10/05/2024 12:35 AM [facility] Chloride 105 98 - 107 mMol/L 10/05/2024 12:35 AM [facility] Carbon Dioxide 24 22 - 31 mMol/L 10/05/2024 12:35 AM [facility] Anion Gap 11 5 - 15 mMol/L 10/05/2024 12:35 AM [facility] Calcium 9.0 8.5 - 10.5 mg/dL 10/05/2024 12:35 AM [facility] Est Glomerular Filtration Rate - Male 121 mL/min/1. 73 m?? 10/05/2024 12:35 AM [facility] Comment: This patient's estimated GFR [...] CHEMISTRY ORDERABLES [facility] [place] [address] * Phosphorus (10/04/2024 11:50 PM EST) Phosphorus 4.2 2.5 - 4.5 mg/dL 10/05/2024 12:35 AM [facility] Blood VENOUS BLOOD SPECIMEN / Unknown Venipuncture / Unknown 10/04/2024 11:50 PM EST 10/05/2024 12:03 AM EST Hayley Torres MD CHEMISTRY ORDERABLES Performing Organization Address City/[facility] Co de Phone Number [facility] [place] [address] * Magnesium (10/04/2024 11:50 PM EST) Magnesium 0.89 0.69 - 1.07 mMol/L 10/05/2024 12:35 AM EST [facility] Blood VENOUS BLOOD SPECIMEN / Unknown Venipuncture / Unknown 10/04/2024 11:50 PM EST 10/05/2024 12:03 AM EST Hayley Torres MD CHEMISTRY ORDERABLES Performing Organization Address [facility] Co de Phone Number [facility] [place] [address] * POC, GLUCOSE (10/04/2024 11:36 PM EST) Glucometer, POC 121 65 - 199 mg/dL 10/04/2024 11:36 PM EST [facility] Comment:Supplemental ranges: <140 mg/dL before meals <180 mg/dL all other times of the day. Blood CAPILLARY BLOOD / Unknown 10/04/2024 11:36 PM EST 10/04/2024 11:36 PM EST Hayley Torres MD POINT OF CARE TEST O RDERABLES Performing Organization Address City/[facility] Co de Phone Number [facility] [place] [address] * POC, GLUCOSE (10/04/2024 7:32 PM EST) Glucometer, POC 163 65 - 199 mg/dL 10/04/2024 7:32 PM EST [facility] Comment:Supplemental ranges: <140 mg/dL before meals <180 mg/dL all other times of the day. Blood CAPILLARY BLOOD / Unknown 10/04/2024 7:32 PM EST 10/04/2024 7:32 PM EST Hayley Torres MD POINT OF CARE TEST O RDERABLES Performing Organization Address City/[facility]/ZIP Co de Phone Number [facility] [place] [address] * EKG 12 Lead (10/04/2024 7:14 PM EST) Ventricular rate 81 BPM MUSE SYSTEM Atrial Rate 81 BPM MUSE SYSTEM P-R Interval 174 ms MUSE SYSTEM QRS Duration 112 ms MUSE SYSTEM Q-T Interval 422 ms MUSE SYSTEM QTC Calculated (Bezet) 490 ms MUSE SYSTEM Calculated P Williams 34 degrees MUSE SYSTEM Calculated R Williams 11 degrees MUSE SYSTEM Calculated T Williams 59 degrees MUSE SYSTEM INTERPRETATION Normal sinus rhythm Cannot rule out Inferior infarct , age undetermined Nonspecific T wave abnormality Borderline ECG When compared with ECG of 29-MAY-2024 14:51, Nonspecific T wave abnormality now evident in Lateral leads Confirmed by MD Robert, Deandre Guadarrama ([id number]) on 10/05/2024 3:35:42 PM MUSE SYSTEM 10/04/2024 7:14 PM EST 10/05/2024 3:35 PM EST Hayley Torres MD ECG ORDERABLES Performing Organization Address [facility]/ZIP Co de Phone Number MUSE SYSTEM * POC, GLUCOSE (10/04/2024 5:07 PM EST) Glucometer, POC 95 65 - 199 mg/dL 10/04/2024 5:07 PM EST [facility] Comment:Supplemental ranges: <140 mg/dL before meals <180 mg/dL all other times of the day. Blood CAPILLARY BLOOD / Unknown 10/04/2024 5:07 PM EST 10/04/2024 5:07 PM EST Hayley Torres MD POINT OF CARE TEST O RDERABLES Performing Organization Address City/[facility]/ZIP Co de Phone Number [facility] [place] [address] * POC, GLUCOSE (10/04/2024 4:49 PM EST) Glucometer, POC 70 65 - 199 mg/dL 10/04/2024 4:50 PM EST [facility] Comment:Supplemental ranges: <140 mg/dL before meals <180 mg/dL all other times of the day. Blood CAPILLARY BLOOD / Unknown 10/04/2024 4:49 PM EST 10/04/2024 4:50 PM EST Hayley Torres MD POINT OF CARE TEST O GILDA Performing Organization Address [facility] Co de Phone Number [facility] [place] [address] * POC, GLUCOSE (10/04/2024 11:49 AM EST) Glucometer, POC 93 65 - 199 mg/dL 10/04/2024 11:49 AM EST [facility] Comment:Supplemental ranges: <140 mg/dL before meals <180 mg/dL all other times of the day. Blood CAPILLARY BLOOD / Unknown 10/04/2024 11:49 AM EST 10/04/2024 11:49 AM EST Hayley Torres MD POINT OF CARE TEST O GILDA Performing Organization Address [facility] Co de Phone Number [facility] [place] [address] * Vancomycin, trough (10/04/2024 7:53 AM EST) Vancomycin, Trough 19.8 10.0 - 20.0 mg/L 10/04/2024 9:16 AM EST [facility] Comment: Varies according to infection source. Blood VENOUS BLOOD SPECIMEN / Unknown Venipuncture / Unknown 10/04/2024 7:53 AM EST 10/04/2024 8:11 AM EST Hayley Torres MD CHEMISTRY ORDERABLES Performing Organization Address City/[facility] Co de Phone Number [facility] [place] [address] * POC, GLUCOSE (10/04/2024 7:51 AM EST) Glucometer, POC 105 65 - 199 mg/dL 10/04/2024 7:52 AM EST [facility] Comment:Supplemental ranges: <140 mg/dL before meals <180 mg/dL all other times of the day. Blood CAPILLARY BLOOD / Unknown 10/04/2024 7:51 AM EST 10/04/2024 7:52 AM EST Hayley Torres MD POINT OF CARE TEST O GILDA Performing Organization Address City/[facility]/ZIP Co de Phone Number [facility] [place] [address] * POC, GLUCOSE (10/04/2024 3:53 AM EST) Glucometer, POC 90 65 - 199 mg/dL 10/04/2024 3:53 AM EST [facility] Comment:Supplemental ranges: <140 mg/dL before meals <180 mg/dL all other times of the day. Blood CAPILLARY BLOOD / Unknown 10/04/2024 3:53 AM EST 10/04/2024 3:53 AM EST Hayley Torres MD POINT OF CARE TEST O GILDA Performing Organization Address City/[facility]/ZIP Co de Phone Number [facility] [place] [address] * (ABNORMAL) CBC (with Diff) (10/04/2024 12:08 AM EST) [facility] White Blood Cell 12.58(H) 4.00 - 9.50 x10(3)/mc L 10/04/2024 12:51 AM EST [facility] Red Blood Cell 3.28(L) 4.58 - 5.54 x10(6)/mc L 10/04/2024 12:51 AM EST [facility] Hemoglobin 9.4(L) 13.7 - 16.5 g/dL 10/04/2024 12:51 AM EST [facility] Hematocrit 28.8(L) 40.5 - 48.5 % 10/04/2024 12:51 AM [facility] Mean Cell Volume 87.8 82.9 - 93.1 fL 10/04/2024 12:51 AM [facility] Mean Cell Hemoglobin 28.7 27.5 - 32.1 pg 10/04/2024 12:51 AM [facility] Mean Cell Hemoglobin Concentration 32.6 32.0 - 35.7 g/dL 10/04/2024 12:51 AM [facility] Platelet 670(H) 145 - 357 x10(3)/mc L 10/04/2024 12:51 AM [facility] Mean Platelet Volume 9.1 7.6 - 12.9 fL 10/04/2024 12:51 AM [facility] RDW Standard Deviation 44.8 36.0 - 45.0 fL 10/04/2024 12:51 AM [facility] RDW coefficient of variation 13.9(H) 11.4 - 13.8 % 10/04/2024 12:51 AM [facility] NRBC% auto 0.0 % 10/04/2024 12:51 AM [facility] NRBC Absolute <0.01 <0.01 x10(3)/mc L 10/04/2024 12:51 AM [facility] Neutrophil % 60.3 % 10/04/2024 12:51 AM [facility] Neutrophil Absolute (ANC) - Automated 7.57(H) 1.70 - 6.10 x10(3)/mc L 10/04/2024 12:51 AM [facility] Lymph % 27.4 % 10/04/2024 12:51 AM [facility] Lymph Absolute 3.45(H) 0.90 - 3.20 x10(3)/mc L 10/04/2024 12:51 AM [facility] Monocyte % 5.4 % 10/04/2024 12:51 AM [facility] Monocyte Absolute 0.68 0.30 - 0.90 x10(3)/mc L 10/04/2024 12:51 AM [facility] Eos % 1.5 % 10/04/2024 12:51 AM [facility] Eos Absolute 0.19 0.00 - 0.40 x10(3)/mc L 10/04/2024 12:51 AM [facility] Basophil % 0.6 % 10/04/2024 12:51 AM [facility] Baso Absolute 0.08 0.00 - 0.10 x10(3)/mc L 10/04/2024 12:51 AM [facility] Immature Gran % 4.8 % 12:51 AM [facility] Immature Gran Absolute 0.61(H) 0.00 - 0.04 x10(3)/mc L 10/04/2024 12:51 AM [facility] Blood VENOUS BLOOD SPECIMEN / Unknown Venipuncture / Unknown 10/04/2024 12:08 AM EST 10/04/2024 12:15 AM EST Hayley Torres MD HEMATOLOGY ORDERABLE S [facility] [place] [address] * (ABNORMAL) Basic Metabolic Panel (10/04/2024 12:08 AM EST) Glucose 135 65 - 199 mg/dL 10/04/2024 12:53 AM [facility] Comment:Glucose Concentratio n >=200 mg/dL plus symptoms is consistent with Diabetes Mellitus. Blood Urea Nitrogen 19 10 - 20 mg/dL 10/04/2024 12:53 AM [facility] Creatinine 0.56(L) 0.80 - 1.50 mg/dL 10/04/2024 12:53 AM [facility] Sodium 138 135 - 145 mMol/L 10/04/2024 12:53 AM EST [facility] Potassium 4.4 3.5 - 5.0 mMol/L 10/04/2024 12:53 AM [facility] Chloride 105 98 - 107 mMol/L 10/04/2024 12:53 AM [facility] Carbon Dioxide 24 22 - 31 mMol/L 10/04/2024 12:53 AM [facility] Anion Gap 9 5 - 15 mMol/L 10/04/2024 12:53 AM [facility] Calcium 8.7 8.5 - 10.5 mg/dL 10/04/2024 12:53 AM [facility] Est Glomerular Filtration Rate - Male 120 mL/min/1. 73 m?? 10/04/2024 12:53 AM [facility] Comment: This patient's estimated GFR [...] CHEMISTRY ORDERABLES [facility] [place] [address] * Phosphorus (10/04/2024 12:08 AM EST) Phosphorus 3.7 2.5 - 4.5 mg/dL 10/04/2024 12:53 AM [facility] Blood VENOUS BLOOD SPECIMEN / Unknown Venipuncture / Unknown 10/04/2024 12:08 AM EST 10/04/2024 12:15 AM EST Hayley Torres MD CHEMISTRY ORDERABLES Performing Organization Address [facility] Co de Phone Number [facility] [place] [address] * Magnesium (10/04/2024 12:08 AM EST) Magnesium 0.89 0.69 - 1.07 mMol/L 10/04/2024 12:53 AM EST [facility] Blood VENOUS BLOOD SPECIMEN / Unknown Venipuncture / Unknown 10/04/2024 12:08 AM EST 10/04/2024 12:15 AM EST Hayley Torres MD CHEMISTRY ORDERABLES Performing Organization Address [facility] Co de Phone Number [facility] [place] [address] * POC, GLUCOSE (10/04/2024 12:01 AM EST) Glucometer, POC 132 65 - 199 mg/dL 10/04/2024 12:02 AM EST [facility] Comment:Supplemental ranges: <140 mg/dL before meals <180 mg/dL all other times of the day. Blood CAPILLARY BLOOD / Unknown 10/04/2024 12:01 AM EST 10/04/2024 12:02 AM EST Hayley Torres MD POINT OF CARE TEST O RDERABLES Performing Organization Address City/[facility]/ZIP Co de Phone Number [facility] [place] [address] * POC, GLUCOSE (10/03/2024 7:56 PM EST) Glucometer, POC 123 65 - 199 mg/dL 10/03/2024 7:56 PM EST [facility] Comment:Supplemental ranges: <140 mg/dL before meals <180 mg/dL all other times of the day. Blood CAPILLARY BLOOD / Unknown 10/03/2024 7:56 PM EST 10/03/2024 7:57 PM EST Hayley Torres MD POINT OF CARE TEST O GILDA Performing Organization Address [facility]/ZIP Co de Phone Number [facility] [place] [address] * POC, GLUCOSE (10/03/2024 5:29 PM EST) Glucometer, POC 182 65 - 199 mg/dL 10/03/2024 5:30 PM EST [facility] Comment:Supplemental ranges: <140 mg/dL before meals <180 mg/dL all other times of the day. Blood CAPILLARY BLOOD / Unknown 10/03/2024 5:29 PM EST 10/03/2024 5:30 PM EST Hayley Torres MD POINT OF CARE TEST O GILDA Performing Organization Address [facility] Co de Phone Number [facility] [place] [address] * POC, GLUCOSE (10/03/2024 12:54 PM EST) Glucometer, POC 128 65 - 199 mg/dL 10/03/2024 12:54 PM EST [facility] Comment:Supplemental ranges: <140 mg/dL before meals <180 mg/dL all other times of the day. Blood CAPILLARY BLOOD / Unknown 10/03/2024 12:54 PM EST 10/03/2024 12:54 PM EST Hayley Torres MD POINT OF CARE TEST O GILDA Performing Organization Address City/[facility]/ZIP Co de Phone Number [facility] [place] [address] * POC, GLUCOSE (10/03/2024 7:59 AM EST) Glucometer, POC 115 65 - 199 mg/dL 10/03/2024 7:59 AM EST [facility] Comment:Supplemental ranges: <140 mg/dL before meals <180 mg/dL all other times of the day. Blood CAPILLARY BLOOD / Unknown 10/03/2024 7:59 AM EST 10/03/2024 7:59 AM EST Hayley Torres MD POINT OF CARE TEST O GILDA Performing Organization Address City/[facility]/ZIP Co de Phone Number [facility] [place] [address] * POC, GLUCOSE (10/03/2024 5:32 AM EST) Glucometer, POC 119 65 - 199 mg/dL 10/03/2024 5:32 AM EST [facility] Comment:Supplemental ranges: <140 mg/dL before meals <180 mg/dL all other times of the day. Blood CAPILLARY BLOOD / Unknown 10/03/2024 5:32 AM EST 10/03/2024 5:32 AM EST Hayley Torres MD POINT OF CARE TEST O GILDA Performing Organization Address [facility] Co de Phone Number [facility] [place] [address] * POC, GLUCOSE (10/03/2024 4:16 AM EST) Glucometer, POC 152 65 - 199 mg/dL 10/03/2024 4:17 AM EST [facility] Comment:Supplemental ranges: <140 mg/dL before meals <180 mg/dL all other times of the day. Blood CAPILLARY BLOOD / Unknown 10/03/2024 4:16 AM EST 10/03/2024 4:17 AM EST Hayley Torres MD POINT OF CARE TEST O GILDA Performing Organization Address City/[facility]/ZIP Co de Phone Number [facility] [place] [address] * (ABNORMAL) POC, GLUCOSE (10/03/2024 2:02 AM EST) Glucometer, POC 225(H) 65 - 199 mg/dL 10/03/2024 2:02 AM [facility] Comment:Supplemental ranges: <140 mg/dL before meals <180 mg/dL all other times of the day. Blood CAPILLARY BLOOD / Unknown 10/03/2024 2:02 AM EST 10/03/2024 2:02 AM EST Hayley Torres MD POINT OF CARE TEST O RDERABLES [facility] [place] [address] * (ABNORMAL) CBC (with Diff) (10/03/2024 12:27 AM EST) White Blood Cell 15.33(H) 4.00 - 9.50 x10(3)/mc L 10/03/2024 12:51 AM [facility] Red Blood Cell 3.59(L) 4.58 - 5.54 x10(6)/mc L 10/03/2024 12:51 AM [facility] Hemoglobin 10.4(L) 13.7 - 16.5 g/dL 10/03/2024 12:51 AM [facility] Hematocrit 31.2(L) 40.5 - 48.5 % 10/03/2024 12:51 AM [facility] Mean Cell Volume 86.9 82.9 - 93.1 fL 10/03/2024 12:51 AM [facility] Mean Cell Hemoglobin 29.0 27.5 - 32.1 pg 10/03/2024 12:51 AM [facility] Mean Cell Hemoglobin Concentration 33.3 32.0 - 35.7 g/dL 10/03/2024 12:51 AM [facility] Platelet 693(H) 145 - 357 x10(3)/mc L 10/03/2024 12:51 AM [facility] Mean Platelet Volume 9.2 7.6 - 12.9 fL 10/03/2024 12:51 AM [facility] RDW Standard Deviation 42.4 36.0 - 45.0 fL 10/03/2024 12:51 AM [facility] RDW coefficient of variation 13.6 11.4 - 13.8 % 10/03/2024 12:51 AM [facility] NRBC% auto 0.0 % 10/03/2024 12:51 AM [facility] NRBC Absolute <0.01 <0.01 x10(3)/mc L 10/03/2024 12:51 AM [facility] Neutrophil % 77.1 % 10/03/2024 12:51 AM [facility] Neutrophil Absolute (ANC) - Automated 11.83(H) 1.70 - 6.10 x10(3)/mc L 10/03/2024 12:51 AM [facility] Lymph % 13.4 % 10/03/2024 12:51 AM [facility] Lymph Absolute 2.05 0.90 - 3.20 x10(3)/mc L 10/03/2024 12:51 AM [facility] Monocyte % 2.9 % 10/03/2024 12:51 AM [facility] Monocyte Absolute 0.45 0.30 - 0.90 x10(3)/mc L 10/03/2024 12:51 AM [facility] Eos % 0.5 % 10/03/2024 12:51 AM [facility] Eos Absolute 0.07 0.00 - 0.40 x10(3)/mc L 10/03/2024 12:51 AM [facility] Basophil % 0.4 % 10/03/2024 12:51 AM [facility] Baso Absolute 0.06 0.00 - 0.10 x10(3)/mc L 10/03/2024 12:51 AM [facility] Immature Gran % 5.7 % 12:51 AM [facility] Immature Gran Absolute 0.87(H) 0.00 - 0.04 x10(3)/mc L 10/03/2024 12:51 AM [facility] Blood VENOUS BLOOD SPECIMEN / Unknown Venipuncture / Unknown 10/03/2024 12:27 AM EST 10/03/2024 12:47 AM EST Hayley Torres MD HEMATOLOGY ORDERABLE S [facility] [place] [address] * (ABNORMAL) Basic Metabolic Panel (10/03/2024 12:27 AM EST) Glucose 208(H) 65 - 199 mg/dL 10/03/2024 1:14 AM [facility] Comment:Glucose Concentratio n >=200 mg/dL plus symptoms is consistent with Diabetes Mellitus. Blood Urea Nitrogen 15 10 - 20 mg/dL 10/03/2024 1:14 AM [facility] Creatinine 0.51(L) 0.80 - 1.50 mg/dL 10/03/2024 1:14 AM [facility] Sodium 136 135 - 145 mMol/L 10/03/2024 1:14 AM [facility] Potassium 4.1 3.5 - 5.0 mMol/L 10/03/2024 1:14 AM [facility] Chloride 103 98 - 107 mMol/L 10/03/2024 1:14 AM [facility] Carbon Dioxide 20(L) 22 - 31 mMol/L 10/03/2024 1:14 AM [facility] Anion Gap 13 5 - 15 mMol/L 10/03/2024 1:14 AM [facility] Calcium 8.4(L) 8.5 - 10.5 mg/dL 10/03/2024 1:14 AM [facility] Est Glomerular Filtration Rate - Male 124 mL/min/1. 73 m?? 10/03/2024 1:14 AM [facility] Comment: This patient's estimated GFR [...] Torres MD CHEMISTRY ORDERABLES Performing Organization Address City/[facility]/ZIP Co de Phone Number [facility] [place] [address] * Phosphorus (10/03/2024 12:27 AM EST) Phosphorus 3.5 2.5 - 4.5 mg/dL 10/03/2024 1:14 AM EST [facility] Blood VENOUS BLOOD SPECIMEN / Unknown Venipuncture / Unknown 10/03/2024 12:27 AM EST 10/03/2024 12:47 AM EST Hayley Torres MD CHEMISTRY ORDERABLES [facility] [place] [address] * Magnesium (10/03/2024 12:27 AM EST) Magnesium 0.83 0.69 - 1.07 mMol/L 10/03/2024 1:14 AM EST [facility] Blood VENOUS BLOOD SPECIMEN / Unknown Venipuncture / Unknown 10/03/2024 12:27 AM EST 10/03/2024 12:47 AM EST Hayley Torres MD CHEMISTRY ORDERABLES Performing Organization Address [facility] Co de Phone Number [facility] [place] [address] * (ABNORMAL) POC, GLUCOSE (10/03/2024 12:13 AM EST) Glucometer, POC 255(H) 65 - 199 mg/dL 10/03/2024 12:14 AM EST [facility] Comment:Supplemental ranges: <140 mg/dL before meals <180 mg/dL all other times of the day. Blood CAPILLARY BLOOD / Unknown 10/03/2024 12:13 AM EST 10/03/2024 12:14 AM EST Hayley Torres MD POINT OF CARE TEST O RDERAHERNANDEZ Performing Organization Address [facility] Co de Phone Number [facility] [facility] [place] [address] * POC, GLUCOSE (10/02/2024 8:17 PM EST) Glucometer, POC 177 65 - 199 mg/dL 10/02/2024 8:17 PM EST [facility] Comment:Supplemental ranges: <140 mg/dL before meals <180 mg/dL all other times of the day. Blood CAPILLARY BLOOD / Unknown 10/02/2024 8:17 PM EST 10/02/2024 8:17 PM EST Hayley Torres MD POINT OF CARE TEST O GILDA Performing Organization Address [facility] Co de Phone Number [facility] [place] [address] * POC, GLUCOSE (10/02/2024 6:22 PM EST) Glucometer, POC 172 65 - 199 mg/dL 10/02/2024 6:22 PM EST [facility] Comment:Supplemental ranges: <140 mg/dL before meals <180 mg/dL all other times of the day. Blood CAPILLARY BLOOD / Unknown 10/02/2024 6:22 PM EST 10/02/2024 6:22 PM EST Hayley Torres MD POINT OF CARE TEST O GILDA Performing Organization Address City/[facility]/ZIP Co de Phone Number [facility] [place] [address] * POC, GLUCOSE (10/02/2024 5:01 PM EST) Glucometer, POC 104 65 - 199 mg/dL 10/02/2024 5:01 PM EST [facility] Comment:Supplemental ranges: <140 mg/dL before meals <180 mg/dL all other times of the day. Blood CAPILLARY BLOOD / Unknown 10/02/2024 5:01 PM EST 10/02/2024 5:01 PM EST Hayley Torres MD POINT OF CARE TEST O GILDA Performing Organization Address [facility] Co de Phone Number [facility] [place] [address] * POC, GLUCOSE (10/02/2024 3:05 PM EST) Glucometer, POC 113 65 - 199 mg/dL 10/02/2024 3:06 PM EST [facility] Comment:Supplemental ranges: <140 mg/dL before meals <180 mg/dL all other times of the day. Blood CAPILLARY BLOOD / Unknown 10/02/2024 3:05 PM EST 10/02/2024 3:06 PM EST Hayley Torers MD POINT OF CARE TEST O GILDA [facility] [place] [address] * POC, GLUCOSE (10/02/2024 11:12 AM EST) Glucometer, POC 146 65 - 199 mg/dL 10/02/2024 11:12 AM EST [facility] Comment:Supplemental ranges: <140 mg/dL before meals <180 mg/dL all other times of the day. Blood CAPILLARY BLOOD / Unknown 10/02/2024 11:12 AM EST 10/02/2024 11:12 AM EST Hayley Torres MD POINT OF CARE TEST O GILDA Performing Organization Address City/[facility] Co de Phone Number [facility] [place] [address] * POC, GLUCOSE (10/02/2024 8:12 AM EST) Glucometer, POC 131 65 - 199 mg/dL 10/02/2024 8:12 AM EST [facility] Comment:Supplemental ranges: <140 mg/dL before meals <180 mg/dL all other times of the day. Blood CAPILLARY BLOOD / Unknown 10/02/2024 8:12 AM EST 10/02/2024 8:12 AM EST Hayley Torres MD POINT OF CARE TEST O GILDA Performing Organization Address [facility] Co de Phone Number [facility] [place] [address] * POC, GLUCOSE (10/02/2024 4:19 AM EST) Glucometer, POC 131 65 - 199 mg/dL 10/02/2024 4:19 AM EST [facility] Comment:Supplemental ranges: <140 mg/dL before meals <180 mg/dL all other times of the day. Blood CAPILLARY BLOOD / Unknown 10/02/2024 4:19 AM EST 10/02/2024 4:19 AM EST Hayley Torres MD POINT OF CARE TEST O GILDA Performing Organization Address City/[facility]/ZIP Co de Phone Number [facility] [place] [address] * Phosphorus (10/02/2024 12:41 AM EST) Phosphorus 4.1 2.5 - 4.5 mg/dL 10/02/2024 1:21 AM EST [facility] Blood VENOUS BLOOD SPECIMEN / Unknown Venipuncture / Unknown 10/02/2024 12:41 AM EST 10/02/2024 12:45 AM EST Hayley Torres MD CHEMISTRY ORDERABLES Performing Organization Address [facility] Co de Phone Number [facility] [place] [address] * Magnesium (10/02/2024 12:41 AM EST) Pathologist [facility] Magnesium 0.85 0.69 - 1.07 mMol/L 10/02/2024 1:21 AM [facility] Blood VENOUS BLOOD SPECIMEN / Unknown Venipuncture / Unknown 10/02/2024 12:41 AM EST 10/02/2024 12:45 AM EST Hayley Torres MD CHEMISTRY ORDERABLES Performing Organization Address City/[facility] Co de Phone Number [facility] [place] [address] * (ABNORMAL) Basic Metabolic Panel (10/02/2024 12:41 AM EST) [facility] Glucose 113 65 - 199 mg/dL 10/02/2024 1:21 AM [facility] Comment:Glucose Concentratio n >=200 mg/dL plus symptoms is consistent with Diabetes Mellitus. Blood Urea Nitrogen 11 10 - 20 mg/dL 10/02/2024 1:21 AM [facility] Creatinine 0.49(L) 0.80 - 1.50 mg/dL 10/02/2024 1:21 AM [facility] Sodium 138 135 - 145 mMol/L 10/02/2024 1:21 AM [facility] Potassium 3.9 3.5 - 5.0 mMol/L 10/02/2024 1:21 AM [facility] Chloride 105 98 - 107 mMol/L 10/02/2024 1:21 AM [facility] Carbon Dioxide 23 22 - 31 mMol/L 10/02/2024 1:21 AM EST [facility] Anion Gap 10 5 - 15 mMol/L 10/02/2024 1:21 AM [facility] Calcium 8.2(L) 8.5 - 10.5 mg/dL 10/02/2024 1:21 AM [facility] Est Glomerular Filtration Rate - Male 125 mL/min/1. 73 m?? 10/02/2024 1:21 AM EST [facility] Comment: This patient's estimated GFR [...] Torres MD CHEMISTRY ORDERABLES Performing Organization Address City/State/[facility] Co de Phone Number [facility] [place] [address] * (ABNORMAL) CBC (with Diff) (10/02/2024 12:41 AM EST) White Blood Cell 10.93(H) 4.00 - 9.50 x10(3)/mc L 10/02/2024 1:04 AM EST [facility] Red Blood Cell 3.30(L) 4.58 - 5.54 x10(6)/mc L 10/02/2024 1:04 AM [facility] Hemoglobin 9.6(L) 13.7 - 16.5 g/dL 10/02/2024 1:04 AM [facility] Hematocrit 28.6(L) 40.5 - 48.5 % 10/02/2024 1:04 AM [facility] Mean Cell Volume 86.7 82.9 - 93.1 fL 10/02/2024 1:04 AM [facility] Mean Cell Hemoglobin 29.1 27.5 - 32.1 pg 10/02/2024 1:04 AM [facility] Mean Cell Hemoglobin Concentration 33.6 32.0 - 35.7 g/dL 10/02/2024 1:04 AM [facility] Platelet 546(H) 145 - 357 x10(3)/mc L 10/02/2024 1:04 AM [facility] Mean Platelet Volume 9.0 7.6 - 12.9 fL 10/02/2024 1:04 AM [facility] RDW Standard Deviation 42.7 36.0 - 45.0 fL 10/02/2024 1:04 AM [facility] RDW coefficient of variation 13.3 11.4 - 13.8 % 10/02/2024 1:04 AM [facility] NRBC% auto 0.0 % 10/02/2024 1:04 AM [facility] NRBC Absolute <0.01 <0.01 x10(3)/mc L 10/02/2024 1:04 AM [facility] Neutrophil % 58.4 % 10/02/2024 1:04 AM [facility] Neutrophil Absolute (ANC) - Automated 6.38(H) 1.70 - 6.10 x10(3)/mc L 10/02/2024 1:04 AM [facility] Lymph % 23.9 % 10/02/2024 1:04 AM [facility] Lymph Absolute 2.61 0.90 - 3.20 x10(3)/mc L 10/02/2024 1:04 AM [facility] Monocyte % 5.6 % 10/02/2024 1:04 AM [facility] Monocyte Absolute 0.61 0.30 - 0.90 x10(3)/mc L 10/02/2024 1:04 AM [facility] Eos % 1.6 % 10/02/2024 1:04 AM [facility] Eos Absolute 0.18 0.00 - 0.40 x10(3)/mc L 10/02/2024 1:04 AM EST [facility] Basophil % 0.8 % 10/02/2024 1:04 AM [facility] Baso Absolute 0.09 0.00 - 0.10 x10(3)/mc L 10/02/2024 1:04 AM [facility] Immature Gran % 9.7 % 1:04 AM [facility] Immature Gran Absolute 1.06(H) 0.00 - 0.04 x10(3)/mc L 10/02/2024 1:04 AM [facility] Blood VENOUS BLOOD SPECIMEN / Unknown Venipuncture / Unknown 10/02/2024 12:41 AM EST 10/02/2024 12:45 AM EST Hayley Torres MD HEMATOLOGY ORDERABLE S [facility] [place] [address] * POC, GLUCOSE (10/02/2024 12:40 AM EST) Glucometer, POC 116 65 - 199 mg/dL 10/02/2024 12:41 AM EST [facility] Comment:Supplemental ranges: <140 mg/dL before meals <180 mg/dL all other times of the day. Blood CAPILLARY BLOOD / Unknown 10/02/2024 12:40 AM EST 10/02/2024 12:41 AM EST Hayley Torres MD POINT OF CARE TEST O RDERABLES [facility] [place] [address] * POC, GLUCOSE (10/01/2024 8:11 PM EST) Glucometer, POC 123 65 - 199 mg/dL 10/01/2024 8:11 PM EST [facility] Comment:Supplemental ranges: <140 mg/dL before meals <180 mg/dL all other times of the day. Blood CAPILLARY BLOOD / Unknown 10/01/2024 8:11 PM EST 10/01/2024 8:11 PM EST Hayley Torres MD POINT OF CARE TEST O GILDA [facility] [place] [address] * POC, GLUCOSE (10/01/2024 6:00 PM EST) Glucometer, POC 112 65 - 199 mg/dL 10/01/2024 6:00 PM EST [facility] Comment:Supplemental ranges: <140 mg/dL before meals <180 mg/dL all other times of the day. Blood CAPILLARY BLOOD / Unknown 10/01/2024 6:00 PM EST 10/01/2024 6:00 PM EST Hayley Torres MD POINT OF CARE TEST O GILDA [facility] [place] [address] * POC, GLUCOSE (10/01/2024 3:53 PM EST) Glucometer, POC 97 65 - 199 mg/dL 10/01/2024 3:53 PM EST [facility] Comment:Supplemental ranges: <140 mg/dL before meals <180 mg/dL all other times of the day. Blood CAPILLARY BLOOD / Unknown 10/01/2024 3:53 PM EST 10/01/2024 3:53 PM EST Hayley Torres MD POINT OF CARE TEST O RDTYESHA Performing Organization Address [facility] Co de Phone Number [facility] [place] [address] * POC, GLUCOSE (10/01/2024 2:25 PM EST) Glucometer, POC 117 65 - 199 mg/dL 10/01/2024 2:25 PM EST [facility] Comment:Supplemental ranges: <140 mg/dL before meals <180 mg/dL all other times of the day. Blood CAPILLARY BLOOD / Unknown 10/01/2024 2:25 PM EST 10/01/2024 2:25 PM EST Hayley Torres MD POINT OF CARE TEST O GILDA Performing Organization Address [facility] de Phone Number [facility] [place] [address] * POC, GLUCOSE (10/01/2024 11:43 AM EST) Glucometer, POC 174 65 - 199 mg/dL 10/01/2024 11:43 AM EST [facility] Comment:Supplemental ranges: <140 mg/dL before meals <180 mg/dL all other times of the day. Blood CAPILLARY BLOOD / Unknown 10/01/2024 11:43 AM EST 10/01/2024 11:43 AM EST Hayley Torres MD POINT OF CARE TEST O GILDA Performing Organization Address [facility] Co de Phone Number [facility] [place] [address] * POC, GLUCOSE (10/01/2024 9:43 AM EST) Glucometer, POC 191 65 - 199 mg/dL 10/01/2024 9:43 AM EST [facility] Comment:Supplemental ranges: <140 mg/dL before meals <180 mg/dL all other times of the day. Blood CAPILLARY BLOOD / Unknown 10/01/2024 9:43 AM EST 10/01/2024 9:43 AM EST Hayley Torres MD POINT OF CARE TEST O GILDA Performing Organization Address [facility]/ZIP Co de Phone Number [facility] [place] [address] * POC, GLUCOSE (10/01/2024 7:48 AM EST) Glucometer, POC 151 65 - 199 mg/dL 10/01/2024 7:48 AM EST [facility] Comment:Supplemental ranges: <140 mg/dL before meals <180 mg/dL all other times of the day. Blood CAPILLARY BLOOD / Unknown 10/01/2024 7:48 AM EST 10/01/2024 7:48 AM EST Hayley Torres MD POINT OF CARE TEST O GILDA Performing Organization Address [facility] Co de Phone Number [facility] [place] [address] * POC, GLUCOSE (10/01/2024 4:25 AM EST) Glucometer, POC 133 65 - 199 mg/dL 10/01/2024 4:26 AM EST [facility] Comment:Supplemental ranges: <140 mg/dL before meals <180 mg/dL all other times of the day. Blood CAPILLARY BLOOD / Unknown 10/01/2024 4:25 AM EST 10/01/2024 4:26 AM EST Hayley Torres MD POINT OF CARE TEST O GILDA Performing Organization Address City/[facility]/ZIP Co de Phone Number [facility] [place] [address] * Phosphorus (10/01/2024 2:02 AM EST) Phosphorus 3.9 2.5 - 4.5 mg/dL 10/01/2024 7:16 AM EST [facility] Blood VENOUS BLOOD SPECIMEN / Unknown Venipuncture / Unknown 10/01/2024 2:02 AM EST 10/01/2024 2:10 AM EST Hayley Torres MD CHEMISTRY ORDERABLES Performing Organization Address City/[facility] Co de Phone Number [facility] [place] [address] * (ABNORMAL) Scan, Peripheral Blood (10/01/2024 2:02 [...] MD HEMATOLOGY ORDERABLE S Performing Organization Address City/[facility] Co de Phone Number [facility] [place] [address] * Magnesium (10/01/2024 2:02 AM EST) Pathologist [facility] Magnesium 0.79 0.69 - 1.07 mMol/L 10/01/2024 2:41 AM EST [facility] Blood VENOUS BLOOD SPECIMEN / Unknown Venipuncture / Unknown 10/01/2024 2:02 AM EST 10/01/2024 2:10 AM EST Hayley Torres MD CHEMISTRY ORDERABLES Performing Organization Address City/[facility] Co de Phone Number [facility] [place] [address] * (ABNORMAL) Basic Metabolic Panel (10/01/2024 2:02 AM EST) Glucose 122 65 - 199 mg/dL 10/01/2024 2:41 AM [facility] Comment:Glucose Concentratio n >=200 mg/dL plus symptoms is consistent with Diabetes Mellitus. Blood Urea Nitrogen 10 10 - 20 mg/dL 10/01/2024 2:41 AM [facility] Creatinine 0.47(L) 0.80 - 1.50 mg/dL 10/01/2024 2:41 AM [facility] Sodium 138 135 - 145 mMol/L 10/01/2024 2:41 AM [facility] Potassium 3.9 3.5 - 5.0 mMol/L 10/01/2024 2:41 AM [facility] Chloride 105 98 - 107 mMol/L 10/01/2024 2:41 AM [facility] Carbon Dioxide 24 22 - 31 mMol/L 10/01/2024 2:41 AM [facility] Anion Gap 9 5 - 15 mMol/L 10/01/2024 2:41 AM [facility] Calcium 8.1(L) 8.5 - 10.5 mg/dL 10/01/2024 2:41 AM [facility] Est Glomerular Filtration Rate - Male 127 mL/min/1. 73 m?? 10/01/2024 2:41 AM [facility] Comment: This patient's estimated GFR [...] CHEMISTRY ORDERABLES [facility] [place] [address] * (ABNORMAL) CBC (with Diff) (10/01/2024 2:02 AM EST) White Blood Cell 10.15(H) 4.00 - 9.50 x10(3)/mc L 10/01/2024 2:55 AM [facility] Red Blood Cell 3.14(L) 4.58 - 5.54 x10(6)/mc L 10/01/2024 2:55 AM [facility] Hemoglobin 9.1(L) 13.7 - 16.5 g/dL 10/01/2024 2:55 AM [facility] Hematocrit 26.9(L) 40.5 - 48.5 % 10/01/2024 2:55 AM [facility] Mean Cell Volume 85.7 82.9 - 93.1 fL 10/01/2024 2:55 AM [facility] Mean Cell Hemoglobin 29.0 27.5 - 32.1 pg 10/01/2024 2:55 AM [facility] Mean Cell Hemoglobin Concentration 33.8 32.0 - 35.7 g/dL 10/01/2024 2:55 AM [facility] Platelet 444(H) 145 - 357 x10(3)/mc L 10/01/2024 2:55 AM [facility] Mean Platelet Volume 8.9 7.6 - 12.9 fL 10/01/2024 2:55 AM [facility] RDW Standard Deviation 41.2 36.0 - 45.0 fL 10/01/2024 2:55 AM [facility] RDW coefficient of variation 13.2 11.4 - 13.8 % 10/01/2024 2:55 AM [facility] NRBC% auto 0.0 % 10/01/2024 2:55 AM [facility] NRBC Absolute <0.01 <0.01 x10(3)/mc L 10/01/2024 2:55 AM [facility] Neutrophil % 59.5 % 10/01/2024 2:55 AM [facility] Comment:This is an appended report. These results have been appended to a previously preliminary verified report. Neutrophil Absolute (ANC) - Automated 6.05 1.70 - 6.10 x10(3)/mc L 10/01/2024 2:55 AM [facility] Comment:This is an appended report. These results have been appended to a previously preliminary verified report. Lymph % 22.3 % 10/01/2024 2:55 AM [facility] Comment:This is an appended report. These results have been appended to a previously preliminary verified report. Lymph Absolute 2.26 0.90 - 3.20 x10(3)/mc L 10/01/2024 2:55 AM [facility] Comment:This is an appended report. These results have been appended to a previously preliminary verified report. Monocyte % 7.4 % 10/01/2024 2:55 AM [facility] Comment:This is an appended report. These results have been appended to a previously preliminary verified report. Monocyte Absolute 0.75 0.30 - 0.90 x10(3)/mc L 10/01/2024 2:55 AM [facility] Comment:This is an appended report. These results have been appended to a previously preliminary verified report. Eos % 1.8 % 10/01/2024 2:55 AM [facility] Comment:This is an appended report. These results have been appended to a previously preliminary verified report. Eos Absolute 0.18 0.00 - 0.40 x10(3)/mc L 10/01/2024 2:55 AM [facility] Comment:This is an appended report. These results have been appended to a previously preliminary verified report. Basophil % 0.6 % 10/01/2024 2:55 AM EST [facility] Comment:This is an appended report. These results have been appended to a previously preliminary verified report. Baso Absolute 0.06 0.00 - 0.10 x10(3)/mc L 10/01/2024 2:55 AM EST [facility] Comment:This is an appended report. These results have been appended to a previously preliminary verified report. Immature Gran % 8.4 % 2:55 AM EST [facility] Comment:This is an appended report. These results have been appended to a previously preliminary verified report. Immature Gran Absolute 0.85(H) 0.00 - 0.04 x10(3)/mc L 10/01/2024 2:55 AM EST [facility] Comment:This is an appended report. These results have been appended to a previously preliminary verified report. Blood VENOUS BLOOD SPECIMEN / Unknown Venipuncture / Unknown 10/01/2024 2:02 AM EST 10/01/2024 2:10 AM EST Hayley Torres MD HEMATOLOGY ORDERABLE S [facility] [place] [address] * POC, GLUCOSE (10/01/2024 12:32 AM EST) [facility] Signature Glucometer, POC 179 65 - 199 mg/dL 10/01/2024 12:32 AM EST [facility] Comment:Supplemental ranges: <140 mg/dL before meals <180 mg/dL all other times of the day. Blood CAPILLARY BLOOD / Unknown 10/01/2024 12:32 AM EST 10/01/2024 12:32 AM EST Hayley Torres MD POINT OF CARE TEST O RDERABLES [facility] [place] [address] * POC, GLUCOSE (09/30/2024 7:37 PM EST) Glucometer, POC 140 65 - 199 mg/dL 09/30/2024 7:38 PM EST [facility] Comment:Supplemental ranges: <140 mg/dL before meals <180 mg/dL all other times of the day. Blood CAPILLARY BLOOD / Unknown 09/30/2024 7:37 PM EST 09/30/2024 7:38 PM EST Hayley Torres MD POINT OF CARE TEST O GILDA Performing Organization Address City/[facility]/ZIP Co de Phone Number [facility] [place] [address] * POC, GLUCOSE (09/30/2024 4:29 PM EST) Glucometer, POC 126 65 - 199 mg/dL 09/30/2024 4:30 PM EST [facility] Comment:Supplemental ranges: <140 mg/dL before meals <180 mg/dL all other times of the day. Blood CAPILLARY BLOOD / Unknown 09/30/2024 4:29 PM EST 09/30/2024 4:30 PM EST Hayley Torres MD POINT OF CARE TEST O GILDA Performing Organization Address City/[facility]/ZIP Co de Phone Number [facility] [place] [address] * POC, GLUCOSE (09/30/2024 12:16 PM EST) Glucometer, POC 107 65 - 199 mg/dL 09/30/2024 12:16 PM EST [facility] Comment:Supplemental ranges: <140 mg/dL before meals <180 mg/dL all other times of the day. Blood CAPILLARY BLOOD / Unknown 09/30/2024 12:16 PM EST 09/30/2024 12:16 PM EST Hayley Torres MD POINT OF CARE TEST O GILDA [facility] [place] [address] * POC, GLUCOSE (09/30/2024 7:58 AM EST) Glucometer, POC 92 65 - 199 mg/dL 09/30/2024 7:58 AM EST [facility] Comment:Supplemental ranges: <140 mg/dL before meals <180 mg/dL all other times of the day. Blood CAPILLARY BLOOD / Unknown 09/30/2024 7:58 AM EST 09/30/2024 7:58 AM EST Hayley Torres MD POINT OF CARE TEST O RDERABLES Performing Organization Address City/[facility]/ZIP Co de Phone Number [facility] [place] [address] * Potassium (09/30/2024 6:27 AM EST) Potassium 3.9 3.5 - 5.0 mMol/L 09/30/2024 7:10 AM EST [facility] Blood VENOUS BLOOD SPECIMEN / Unknown Venipuncture / Unknown 09/30/2024 6:27 AM EST 09/30/2024 6:35 AM EST Hayley Torres MD CHEMISTRY ORDERABLES Performing Organization Address City/[facility]/ZIP Co de Phone Number [facility] [place] [address] * Vancomycin, trough (09/30/2024 6:27 AM EST) Vancomycin, Trough 14.1 10.0 - 20.0 mg/L 09/30/2024 7:10 AM EST [facility] Comment: Varies according to infection source. Blood VENOUS BLOOD SPECIMEN / Unknown Venipuncture / Unknown 09/30/2024 6:27 AM EST 09/30/2024 6:35 AM EST Hayley Torres MD CHEMISTRY ORDERABLES Performing Organization Address City/[facility]/ZIP Co de Phone Number [facility] [place] [address] * POC, GLUCOSE (09/30/2024 3:51 AM EST) Glucometer, POC 134 65 - 199 mg/dL 09/30/2024 3:51 AM EST [facility] Comment:Supplemental ranges: <140 mg/dL before meals <180 mg/dL all other times of the day. Blood CAPILLARY BLOOD / Unknown 09/30/2024 3:51 AM EST 09/30/2024 3:51 AM EST Hayley Torres MD POINT OF CARE TEST O RDERABLES Performing Organization Address City/[facility]/ZIP Co de Phone Number [facility] [place] [address] * Magnesium (09/29/2024 11:52 PM EST) Pathologist [facility] Magnesium 0.85 0.69 - 1.07 mMol/L 09/30/2024 12:25 AM EST [facility] Blood VENOUS BLOOD SPECIMEN / Unknown Venipuncture / Unknown 09/29/2024 11:52 PM EST 09/29/2024 11:58 PM EST Hayley Torres MD CHEMISTRY ORDERABLES Performing Organization Address City/[facility]/ZIP Co de Phone Number [facility] [place] [address] * (ABNORMAL) Basic Metabolic Panel (09/29/2024 11:52 PM EST) Pathologist [facility] Glucose 133 65 - 199 mg/dL 09/30/2024 12:51 AM EST [facility] Comment:Glucose Concentratio n >=200 mg/dL plus symptoms is consistent with Diabetes Mellitus. Blood Urea Nitrogen 9(L) 10 - 20 mg/dL 09/30/2024 12:51 AM EST [facility] Creatinine 0.48(L) 0.80 - 1.50 mg/dL 09/30/2024 12:51 AM EST [facility] Sodium 138 135 - 145 mMol/L 09/30/2024 12:51 AM EST [facility] Potassium 3.4(L) 3.5 - 5.0 mMol/L 09/30/2024 12:51 [address] [facility] Chloride 103 98 - 107 mMol/L 09/30/2024 12:51 AM [facility] Carbon Dioxide 24 22 - 31 mMol/L 09/30/2024 12:51 AM [facility] Anion Gap 11 5 - 15 mMol/L 09/30/2024 12:51 AM [facility] Calcium 8.1(L) 8.5 - 10.5 mg/dL 09/30/2024 12:51 AM [facility] Est Glomerular Filtration Rate - Male 126 mL/min/1. 73 m?? 09/30/2024 12:51 AM [facility] Comment: This patient's estimated GFR [...] CHEMISTRY ORDERABLES [facility] [place] [address] * (ABNORMAL) CBC (with Diff) (09/29/2024 11:52 PM EST) White Blood Cell 9.54(H) 4.00 - 9.50 x10(3)/mc L 09/30/2024 12:02 AM [facility] Red Blood Cell 3.04(L) 4.58 - 5.54 x10(6)/mc L 09/30/2024 12:02 AM [facility] Hemoglobin 8.7(L) 13.7 - 16.5 g/dL 09/30/2024 12:02 AM [facility] Hematocrit 25.8(L) 40.5 - 48.5 % 09/30/2024 12:02 AM [facility] Mean Cell Volume 84.9 82.9 - 93.1 fL 09/30/2024 12:02 AM [facility] Mean Cell Hemoglobin 28.6 27.5 - 32.1 pg 09/30/2024 12:02 AM [facility] Mean Cell Hemoglobin Concentration 33.7 32.0 - 35.7 g/dL 09/30/2024 12:02 AM [facility] Platelet 411(H) 145 - 357 x10(3)/mc L 09/30/2024 12:02 AM [facility] Mean Platelet Volume 8.8 7.6 - 12.9 fL 09/30/2024 12:02 AM [facility] RDW Standard Deviation 41.4 36.0 - 45.0 fL 09/30/2024 12:02 AM [facility] RDW coefficient of variation 13.4 11.4 - 13.8 % 09/30/2024 12:02 AM [facility] NRBC% auto 0.0 % 09/30/2024 12:02 AM [facility] NRBC Absolute <0.01 <0.01 x10(3)/mc L 09/30/2024 12:02 AM [facility] Neutrophil % 64.5 % 09/30/2024 12:02 AM [facility] Neutrophil Absolute (ANC) - Automated 6.16(H) 1.70 - 6.10 x10(3)/mc L 09/30/2024 12:02 AM [facility] Lymph % 23.1 % 09/30/2024 12:02 AM EST [facility] Lymph Absolute 2.20 0.90 - 3.20 x10(3)/mc L 09/30/2024 12:02 AM [facility] Monocyte % 8.0 % 09/30/2024 12:02 AM [facility] Monocyte Absolute 0.76 0.30 - 0.90 x10(3)/mc L 09/30/2024 12:02 AM [facility] Eos % 1.5 % 09/30/2024 12:02 AM [facility] Eos Absolute 0.14 0.00 - 0.40 x10(3)/mc L 09/30/2024 12:02 AM [facility] Basophil % 0.3 % 09/30/2024 12:02 AM [facility] Baso Absolute <0.04 0.00 - 0.10 x10(3)/mc L 09/30/2024 12:02 AM [facility] Immature Gran % 2.6 % 12:02 AM [facility] Immature Gran Absolute 0.25(H) 0.00 - 0.04 x10(3)/mc L 09/30/2024 12:02 AM [facility] Blood VENOUS BLOOD SPECIMEN / Unknown Venipuncture / Unknown 09/29/2024 11:52 PM EST 09/29/2024 11:58 PM EST Hayley Torres MD HEMATOLOGY ORDERABLE S [facility] [place] [address] * POC, GLUCOSE (09/29/2024 11:51 PM EST) [facility] Signature Glucometer, POC 134 65 - 199 mg/dL 09/29/2024 11:51 PM EST [facility] Comment:Supplemental ranges: <140 mg/dL before meals <180 mg/dL all other times of the day. Blood CAPILLARY BLOOD / Unknown 09/29/2024 11:51 PM EST 09/29/2024 11:51 PM EST Hayley Torres MD POINT OF CARE TEST O RDERABLES Performing Organization Address [facility] Co de Phone Number [facility] [place] [address] * Blood culture (09/29/2024 9:24 PM EST) Blood Culture No growth at 120 hours 10/04/2024 11:01 PM EST [facility] Blood VENOUS BLOOD SPECIMEN / Unknown Venipuncture / Unknown 09/29/2024 9:24 PM EST 09/29/2024 9:34 PM EST Hayley Torres MD MICROBIOLOGY - BLOOD ORDERABLES Performing Organization Address [facility] Co de Phone Number [facility] [place] [address] * Blood culture (09/29/2024 9:24 PM EST) Blood Culture No growth at 120 hours 10/04/2024 11:01 PM EST [facility] Blood VENOUS BLOOD SPECIMEN / Unknown Venipuncture / Unknown 09/29/2024 9:24 PM EST 09/29/2024 9:34 PM EST Marko Dickson MD MICROBIOLOGY - BLOOD ORDERABLES Performing Organization Address City/[facility] Co de Phone Number [facility] [place] [address] * (ABNORMAL) POC, GLUCOSE (09/29/2024 7:35 PM EST) Glucometer, POC 202(H) 65 - 199 mg/dL 09/29/2024 7:36 PM EST [facility] Comment:Supplemental ranges: <140 mg/dL before meals <180 mg/dL all other times of the day. Blood CAPILLARY BLOOD / Unknown 09/29/2024 7:35 PM EST 09/29/2024 7:36 PM EST Hayley Torres MD POINT OF CARE TEST O GILDA Performing Organization Address [facility] Co de Phone Number [facility] [place] [address] * POC, GLUCOSE (09/29/2024 6:48 PM EST) Glucometer, POC 161 65 - 199 mg/dL 09/29/2024 6:48 PM EST [facility] Comment:Supplemental ranges: <140 mg/dL before meals <180 mg/dL all other times of the day. Blood CAPILLARY BLOOD / Unknown 09/29/2024 6:48 PM EST 09/29/2024 6:49 PM EST Hayley Torres MD POINT OF CARE TEST O GILDA Performing Organization Address [facility] Co de Phone Number [facility] [place] [address] * POC, GLUCOSE (09/29/2024 4:06 PM EST) Glucometer, POC 122 65 - 199 mg/dL 09/29/2024 4:06 PM EST [facility] Comment:Supplemental ranges: <140 mg/dL before meals <180 mg/dL all other times of the day. Blood CAPILLARY BLOOD / Unknown 09/29/2024 4:06 PM EST 09/29/2024 4:06 PM EST Hayley Torres MD POINT OF CARE TEST O GILDA Performing Organization Address [facility] Co de Phone Number [facility] [place] [address] * POC, GLUCOSE (09/29/2024 11:49 AM EST) Glucometer, POC 135 65 - 199 mg/dL 09/29/2024 11:49 AM EST [facility] Comment:Supplemental ranges: <140 mg/dL before meals <180 mg/dL all other times of the day. Blood CAPILLARY BLOOD / Unknown 09/29/2024 11:49 AM EST 09/29/2024 11:50 AM EST Hayley Torres MD POINT OF CARE TEST O RDERAHERNANDEZ [facility] [place] [address] * (ABNORMAL) POC, GLUCOSE (09/29/2024 7:53 AM EST) Glucometer, POC 202(H) 65 - 199 mg/dL 09/29/2024 7:53 AM EST [facility] Comment:Supplemental ranges: <140 mg/dL before meals <180 mg/dL all other times of the day. Blood CAPILLARY BLOOD / Unknown 09/29/2024 7:53 AM EST 09/29/2024 7:53 AM EST Hayley Torres MD POINT OF CARE TEST O RDERAHERNANDEZ [facility] [place] [address] * POC, GLUCOSE (09/29/2024 3:45 AM EST) Glucometer, POC 184 65 - 199 mg/dL 09/29/2024 3:46 AM EST [facility] Comment:Supplemental ranges: <140 mg/dL before meals <180 mg/dL all other times of the day. Blood CAPILLARY BLOOD / Unknown 09/29/2024 3:45 AM EST 09/29/2024 3:46 AM EST Hayley Torres MD POINT OF CARE TEST O RDERAHERNANDEZ [facility] [place] [address] * (ABNORMAL) Hemoglobin A1c (09/28/2024 11:51 PM EST) [facility] Hemoglobin A1c 9.7(H) 4.3 - 5.6 % 09/29/2024 9:54 AM [facility] Comment: Per ADA guidelines, without [...] red blood cell turnover may not be fuels sales representative of glycemic control. Reference Interval: 4.3 - 5.6% 5.7 - 6.4%: Consistent with prediabetes >=6.5%: Consistent with diagnosis of diabetes mellitus Estimated Average Glucose 232 mg/dL 09/29/2024 9:54 AM [facility] Blood VENOUS BLOOD SPECIMEN / Unknown Venipuncture / Unknown 09/28/2024 11:51 PM EST 09/28/2024 11:56 PM EST Hayley Torres MD CHEMISTRY ORDERABLES [facility] [place] [address] * Magnesium (09/28/2024 11:51 PM EST) [facility] Magnesium 0.72 0.69 - 1.07 mMol/L 09/29/2024 12:27 AM [facility] Blood VENOUS BLOOD SPECIMEN / Unknown Venipuncture / Unknown 09/28/2024 11:51 PM EST 09/28/2024 11:57 PM EST Hayley Torres MD CHEMISTRY ORDERABLES [facility] [place] [address] * (ABNORMAL) Basic Metabolic Panel (09/28/2024 11:51 PM EST) [facility] Glucose 204(H) 65 - 199 mg/dL 09/29/2024 12:40 AM [facility] Comment:Glucose Concentratio n >=200 mg/dL plus symptoms is consistent with Diabetes Mellitus. Blood Urea Nitrogen 6(L) 10 - 20 mg/dL 09/29/2024 12:40 AM [facility] Creatinine 0.52(L) 0.80 - 1.50 mg/dL 09/29/2024 12:40 AM [facility] Sodium 137 135 - 145 mMol/L 09/29/2024 12:40 AM [facility] Potassium 3.2(L) 3.5 - 5.0 mMol/L 09/29/2024 12:40 AM [facility] Chloride 105 98 - 107 mMol/L 09/29/2024 12:40 AM [facility] Carbon Dioxide 21(L) 22 - 31 mMol/L 09/29/2024 12:40 AM [facility] Anion Gap 11 5 - 15 mMol/L 09/29/2024 12:40 AM [facility] Calcium 6.7(LLL) 8.5 - 10.5 mg/dL 09/29/2024 12:40 AM [facility] Est Glomerular Filtration Rate - Male 123 mL/min/1. 73 m?? 09/29/2024 12:40 AM [facility] Comment: This patient's estimated GFR [...] CHEMISTRY ORDERABLES [facility] [place] [address] * (ABNORMAL) CBC (with Diff) (09/28/2024 11:51 PM EST) White Blood Cell 12.76(H) 4.00 - 9.50 x10(3)/mc L 09/29/2024 12:00 AM [facility] Red Blood Cell 2.90(L) 4.58 - 5.54 x10(6)/mc L 09/29/2024 12:00 AM [facility] Hemoglobin 8.5(L) 13.7 - 16.5 g/dL 09/29/2024 12:00 AM [facility] Hematocrit 24.7(L) 40.5 - 48.5 % 09/29/2024 12:00 AM [facility] Mean Cell Volume 85.2 82.9 - 93.1 fL 09/29/2024 12:00 AM [facility] Mean Cell Hemoglobin 29.3 27.5 - 32.1 pg 09/29/2024 12:00 AM [facility] Mean Cell Hemoglobin Concentration 34.4 32.0 - 35.7 g/dL 09/29/2024 12:00 AM [facility] Platelet 331 145 - 357 x10(3)/mc L 09/29/2024 12:00 AM [facility] Mean Platelet Volume 9.2 7.6 - 12.9 fL 09/29/2024 12:00 AM [facility] RDW Standard Deviation 40.4 36.0 - 45.0 fL 09/29/2024 12:00 AM [facility] RDW coefficient of variation 13.1 11.4 - 13.8 % 09/29/2024 12:00 AM [facility] NRBC% auto 0.0 % 09/29/2024 12:00 AM [facility] NRBC Absolute <0.01 <0.01 x10(3)/mc L 09/29/2024 12:00 AM [facility] Neutrophil % 86.7 % 09/29/2024 12:00 AM [facility] Neutrophil Absolute (ANC) - Automated 11.06(H) 1.70 - 6.10 x10(3)/mc L 09/29/2024 12:00 AM [facility] Lymph % 7.7 % 09/29/2024 12:00 AM [facility] Lymph Absolute 0.98 0.90 - 3.20 x10(3)/mc L 09/29/2024 12:00 AM [facility] Monocyte % 4.0 % 09/29/2024 12:00 AM [facility] Monocyte Absolute 0.51 0.30 - 0.90 x10(3)/mc L 09/29/2024 12:00 AM [facility] Eos % 0.0 % 09/29/2024 12:00 AM [facility] Eos Absolute <0.04 0.00 - 0.40 x10(3)/mc L 09/29/2024 12:00 AM [facility] Basophil % 0.2 % 09/29/2024 12:00 AM [facility] Baso Absolute <0.04 0.00 - 0.10 x10(3)/mc L 09/29/2024 12:00 AM [facility] Immature Gran % 1.4 % 12:00 AM [facility] Immature Gran Absolute 0.18(H) 0.00 - 0.04 x10(3)/mc L 09/29/2024 12:00 AM [facility] Blood VENOUS BLOOD SPECIMEN / Unknown Venipuncture / Unknown 09/28/2024 11:51 PM EST 09/28/2024 11:56 PM EST Hayley Torres MD HEMATOLOGY ORDERABLE S Performing Organization Address City/[facility]/ZIP Co de Phone Number [facility] [place] [address] * (ABNORMAL) POC, GLUCOSE (09/28/2024 11:45 PM EST) Glucometer, POC 238(H) 65 - 199 mg/dL 09/28/2024 11:45 PM EST [facility] Comment:Supplemental ranges: <140 mg/dL before meals <180 mg/dL all other times of the day. Blood CAPILLARY BLOOD / Unknown 09/28/2024 11:45 PM EST 09/28/2024 11:45 PM EST Hayley Torres MD POINT OF CARE TEST O RDERAHERNANDEZ Performing Organization Address [facility] Co de Phone Number [facility] [place] [address] * (ABNORMAL) POC, GLUCOSE (09/28/2024 10:00 PM EST) Glucometer, POC 287(H) 65 - 199 mg/dL 09/28/2024 10:00 PM EST [facility] Comment:Supplemental ranges: <140 mg/dL before meals <180 mg/dL all other times of the day. Blood CAPILLARY BLOOD / Unknown 09/28/2024 10:00 PM EST 09/28/2024 10:00 PM EST Hayley Torres MD POINT OF CARE TEST O GILDA [facility] [place] [address] * (ABNORMAL) POC, GLUCOSE (09/28/2024 7:51 PM EST) Glucometer, POC 243(H) 65 - 199 mg/dL 09/28/2024 7:52 PM EST [facility] Comment:Supplemental ranges: <140 mg/dL before meals <180 mg/dL all other times of the day. Blood CAPILLARY BLOOD / Unknown 09/28/2024 7:51 PM EST 09/28/2024 7:52 PM EST Hayley Torres MD POINT OF CARE TEST O RDTYESHA Performing Organization Address City/[facility]/ZIP Co de Phone Number [facility] [place] [address] * Blood culture (09/28/2024 5:49 PM EST) Blood Culture No growth at 120 hours 10/03/2024 7:01 PM EST [facility] Blood VENOUS BLOOD SPECIMEN / Unknown Venipuncture / Unknown 09/28/2024 5:49 PM EST 09/28/2024 5:53 PM EST Marko Dickson MD MICROBIOLOGY - BLOOD ORDERABLES Performing Organization Address [facility] Co de Phone Number [facility] [place] [address] * (ABNORMAL) POC, GLUCOSE (09/28/2024 4:42 PM EST) Glucometer, POC 203(H) 65 - 199 mg/dL 09/28/2024 4:42 PM EST [facility] Comment:Supplemental ranges: <140 mg/dL before meals <180 mg/dL all other times of the day. Blood CAPILLARY BLOOD / Unknown 09/28/2024 4:42 PM EST 09/28/2024 4:42 PM EST Hayley Torres MD POINT OF CARE TEST O GILDA Performing Organization Address [facility]/ZIP Co de Phone Number [facility] [place] [address] * (ABNORMAL) Blood Gas, Arterial POC (09/28/2024 3:16 PM EST) pH, Arterial 7.42 7.35 - 7.45 09/28/2024 3:17 PM EST [facility] PCO2, Arterial 39 35 - 45 mmHg 09/28/2024 3:17 PM [facility] PO2, Arterial 103 85 - 104 mmHg 09/28/2024 3:17 PM [facility] Bicarbonate, Arterial 24.8 20.0 - 26.0 mmol/L 09/28/2024 3:17 PM [facility] Base Excess, Arterial 0.2 -3.0 - 3.0 mmol/L 09/28/2024 3:17 PM [facility] Hemoglobin, Arterial 10.9(L) 13.7 - 16.5 g/dL 09/28/2024 3:17 PM [facility] Oxyhemoglobin, Arterial 97.1(H) 94.0 - 97.0 % 09/28/2024 3:17 PM [facility] Carboxyhemoglobin , Arterial 0.1 % 09/28/2024 3:17 PM [facility] Comment: Nonsmokers: 0.5-1.5% COHB ?? Smokers: Variable ??but usually less than 10% ?? Toxic: 20-30% COHB ?? Lethal: Greater than 60% COHB Methemoglobin, Arterial 0.2 <=1.5 % 09/28/2024 3:17 PM [facility] Sodium, Arterial 131(L) 135 - 145 mmol/L 09/28/2024 3:17 PM [facility] Potassium, Arterial 3.8 3.5 - 5.0 mmol/L 09/28/2024 3:17 PM [facility] Chloride, Arterial 99 98 - 107 mmol/L 09/28/2024 3:17 PM [facility] Lactate, Arterial 1.1 0.5 - 2.2 mmol/L 09/28/2024 3:17 PM [facility] IONIZED CALCIUM, ARTERIAL 1.08(L) 1.15 - 1.33 mmol/L 09/28/2024 3:17 PM [facility] Glucose, Arterial 163 65 - 199 mg/dL 09/28/2024 3:17 PM [facility] Comment:Glucose Concentratio n >=200 mg/dL plus symptoms is consistent with Diabetes Mellitus. Blood ARTERIAL BLOOD / Unknown 09/28/2024 3:16 PM EST 09/28/2024 3:17 PM EST Hayley Torres MD POINT OF CARE TEST O RDERABLES [facility] [place] [address] * Surgical Pathology (09/28/2024 2:10 PM EST) Case Report Surgical Pathology Report ? Case: [id number] ? Authorizing Provider: ??Hayley Torres MD ? Collected: ? 09/28/2024 1410 ? Ordering Location: ? Main Operating Room [facility] ?? Received: ?09/28/2024 1644 ? [facility] ? [facility] ? Pathologist: ? Aziza Packer MD ? Specimens: ?? A) - Leg, Left, Left femoral proximal graft ? B) - Leg, Left, Left distal BK pop graft ? 10/02/2024 8:17 AM [facility] Final Diagnosis A. Graft, left leg, femoral proximal, excision: - Gross surgical pathology examination. B. Graft, left leg, distal BK pop, excision: - Gross surgical pathology examination. 10/02/2024 8:17 AM [facility] Clinical Information A. Leg, Left, Left femoral proximal graft Left femoral proximal graft B. Leg, Left, Left distal BK pop graft Left distal BK pop graft 10/02/2024 8:17 AM [facility] Gross Description A. Leg, Left, [...] diagnosis only sns 10/02/2024 8:17 AM EST [facility] Result Note Routine 10/02/2024 8:17 AM EST [facility] Vibrating Screen Operator STRUCTURE OF LEFT LOWER LIMB / Unknown 09/28/2024 2:10 PM EST 09/28/2024 4:44 PM EST Comment:Left femoral proxima l graft Biomedical device (physical object) STRUCTURE OF LEFT LOWER LIMB / Unknown 09/28/2024 2:17 PM EST 09/28/2024 4:44 PM EST Comment:Left distal BK pop g raft Hayley Torres MD PATHOLOGY/CYTOLOGY O RDERABLES [facility] [place] [address] * Potassium (09/28/2024 10:45 AM EST) Potassium 4.6 3.5 - 5.0 mMol/L 09/28/2024 12:26 PM EST [facility] Blood VENOUS BLOOD SPECIMEN / Unknown Venipuncture / Unknown 09/28/2024 10:45 AM EST 09/28/2024 10:53 AM EST Marko Dickson MD CHEMISTRY ORDERABLES Performing Organization Address City/[facility]/ZIP Co de Phone Number [facility] [place] [address] * POC, GLUCOSE (09/28/2024 7:57 AM EST) Glucometer, POC 192 65 - 199 mg/dL 09/28/2024 7:57 AM EST [facility] Comment:Supplemental ranges: <140 mg/dL before meals <180 mg/dL all other times of the day. Blood CAPILLARY BLOOD / Unknown 09/28/2024 7:57 AM EST 09/28/2024 7:57 AM EST Marko Dickson MD POINT OF CARE TEST O RDERABLES [facility] [place] [address] * ELEN, legs, multiple levels (09/28/2024 7:44 AM EST) VB Text Report Department: Vascular Surgery Lab Patient: [id number] (GEVOANNA DIXON) CPT: 84136 Referring Physician: HERMILA SNIDER ?? Phone: Indications: [...] VASCUBASE 09/28/2024 7:44 AM EST Hermila White SEARCH ENGINE OPTIMIZATION SPECIALIST VASCULAR ORDERABLE S VASCUBASE * ECHO LMTD W/O CONTRAST W LMTD SPEC DOPP COLOR DOPP (09/28/2024 7:35 AM EST) Anatomical Region Laterality Modality Cardiac Other 09/28/2024 6:56 AM EST Narrative 09/28/2024 9:15 AM EST [address] [place] [address] ? Echocardiogram Report Name: GEOVANNA DIXON JR ?Study Date: 09/28/2024 06:56 AMBP: 132/75 mmHg ? Patient Location: ^[facility]08^A : 1975 ? Height: 179 cm ? Account: [id number] Age: 49 yrs ? Weight: 108 kg Gender: Male ?BSA: 2.3 m2 Ordering Physician: Marko Dickson MD Referring Physician: PATRIC GILES Performed By: Faiza Cole Reason For Study: Vascular graft infection, initial encounter; MRSA bacteremia Interpreting Fellow: Jame Lares. Exam Location: [facility]. Interpretation Summary -Limited study [...] 05/29/2024, no significant changes. Procedure Limited - 02898. Doppler - 76347. Color Doppler - 30728. Suboptimal quality. This study is limited because [...] Note David Lomeli MD - 09/28/2024 [address] [place] [address] Echocardiogram Report Name: GEOVANNA DIXON JR Study Date: 406:56 AMBP: 132/75 mmHg Patient Location[facility]^A : 1975 Height: 179 cm Account: [id number] Age: 49 yrs Weight: 108 kg Gender: Male BSA: 2.3 m2 Ordering Physician: Marko Dickson MD Referring Physician: PATRIC GILES Performed By: Faiza Cole Reason For Study: Vascular graft infection, initial encounter; MRSAbacteremia Interpreting Fellow: Jame Lares. Exam Location: [facility]. Interpretation Summary -Limited study [...] 05/29/2024, no significant changes. Procedure Limited - 63514. Doppler - 96665. Color Doppler - 17042. Suboptimalquality. This study is limited because of [...] - 20.0 mg/L 09/28/2024 7:21 AM EST [facility] Comment: Varies according to infection source. Blood VENOUS BLOOD SPECIMEN / Unknown Venipuncture / Unknown 09/28/2024 6:44 AM EST 09/28/2024 6:49 AM EST Marko Dickson MD CHEMISTRY ORDERABLES [facility] [place] [address] * (ABNORMAL) Potassium (09/28/2024 4:55 AM EST) Pathologist [facility] Potassium 2.9(LLL) 3.5 - 5.0 mMol/L 09/28/2024 5:31 AM EST [facility] Blood VENOUS BLOOD SPECIMEN / Unknown Venipuncture / Unknown 09/28/2024 4:55 AM EST 09/28/2024 5:01 AM EST Marko Dickson MD CHEMISTRY ORDERABLES [facility] [place] [address] * (ABNORMAL) POC, GLUCOSE (09/28/2024 3:54 AM EST) [facility] Glucometer, POC 229(H) 65 - 199 mg/dL 09/28/2024 3:54 AM EST [facility] Comment:Supplemental ranges: <140 mg/dL before meals <180 mg/dL all other times of the day. Blood CAPILLARY BLOOD / Unknown 09/28/2024 3:54 AM EST 09/28/2024 3:54 AM EST Marko Dickson MD POINT OF CARE TEST O RDERABLES [facility] [place] [address] * Magnesium (09/27/2024 11:58 PM EST) [facility] Magnesium 0.77 0.69 - 1.07 mMol/L 09/28/2024 12:38 AM EST [facility] Blood VENOUS BLOOD SPECIMEN / Unknown Venipuncture / Unknown 09/27/2024 11:58 PM EST 09/28/2024 12:10 AM EST Hayley Torres MD CHEMISTRY ORDERABLES [facility] [place] [address] * (ABNORMAL) Basic Metabolic Panel (09/27/2024 11:58 PM EST) Glucose 246(H) 65 - 199 mg/dL 09/28/2024 12:38 AM [facility] Comment:Glucose Concentratio n >=200 mg/dL plus symptoms is consistent with Diabetes Mellitus. Blood Urea Nitrogen 5(L) 10 - 20 mg/dL 09/28/2024 12:38 AM [facility] Creatinine 0.48(L) 0.80 - 1.50 mg/dL 09/28/2024 12:38 AM [facility] Sodium 131(L) 135 - 145 mMol/L 09/28/2024 12:38 AM [facility] Potassium 3.2(L) 3.5 - 5.0 mMol/L 09/28/2024 12:38 AM [facility] Chloride 95(L) 98 - 107 mMol/L 09/28/2024 12:38 AM [facility] Carbon Dioxide 23 22 - 31 mMol/L 09/28/2024 12:38 AM [facility] Anion Gap 13 5 - 15 mMol/L 09/28/2024 12:38 AM [facility] Calcium 8.1(L) 8.5 - 10.5 mg/dL 09/28/2024 12:38 AM [facility] Est Glomerular Filtration Rate - Male 126 mL/min/1. 73 m?? 09/28/2024 12:38 AM [facility] Comment: This patient's estimated GFR [...] CHEMISTRY ORDERABLES [facility] [place] [address] * (ABNORMAL) CBC (with Diff) (09/27/2024 11:58 PM EST) White Blood Cell 17.15(H) 4.00 - 9.50 x10(3)/mc L 09/28/2024 12:14 AM [facility] Red Blood Cell 3.64(L) 4.58 - 5.54 x10(6)/mc L 09/28/2024 12:14 AM [facility] Hemoglobin 10.4(L) 13.7 - 16.5 g/dL 09/28/2024 12:14 AM [facility] Hematocrit 30.5(L) 40.5 - 48.5 % 09/28/2024 12:14 AM [facility] Mean Cell Volume 83.8 82.9 - 93.1 fL 09/28/2024 12:14 AM [facility] Mean Cell Hemoglobin 28.6 27.5 - 32.1 pg 09/28/2024 12:14 AM [facility] Mean Cell Hemoglobin Concentration 34.1 32.0 - 35.7 g/dL 09/28/2024 12:14 AM [facility] Platelet 316 145 - 357 x10(3)/mc L 09/28/2024 12:14 AM [facility] Mean Platelet Volume 9.4 7.6 - 12.9 fL 09/28/2024 12:14 AM [facility] RDW Standard Deviation 39.4 36.0 - 45.0 fL 09/28/2024 12:14 AM [facility] RDW coefficient of variation 12.8 11.4 - 13.8 % 09/28/2024 12:14 AM [facility] NRBC% auto 0.0 % 09/28/2024 12:14 AM [facility] NRBC Absolute <0.01 <0.01 x10(3)/mc L 09/28/2024 12:14 AM [facility] Neutrophil % 81.2 % 09/28/2024 12:14 AM [facility] Neutrophil Absolute (ANC) - Automated 13.93(H) 1.70 - 6.10 x10(3)/mc L 09/28/2024 12:14 AM [facility] Lymph % 10.5 % 09/28/2024 12:14 AM [facility] Lymph Absolute 1.80 0.90 - 3.20 x10(3)/mc L 09/28/2024 12:14 AM [facility] Monocyte % 5.7 % 09/28/2024 12:14 AM [facility] Monocyte Absolute 0.98(H) 0.30 - 0.90 x10(3)/mc L 09/28/2024 12:14 AM [facility] Eos % 0.7 % 09/28/2024 12:14 AM [facility] Eos Absolute 0.12 0.00 - 0.40 x10(3)/mc L 09/28/2024 12:14 AM [facility] Basophil % 0.5 % 09/28/2024 12:14 AM [facility] Baso Absolute 0.08 0.00 - 0.10 x10(3)/mc L 09/28/2024 12:14 AM [facility] Immature Gran % 1.4 % 12:14 AM [facility] Immature Gran Absolute 0.24(H) 0.00 - 0.04 x10(3)/mc L 09/28/2024 12:14 AM [facility] Blood VENOUS BLOOD SPECIMEN / Unknown Venipuncture / Unknown 09/27/2024 11:58 PM EST 09/28/2024 12:10 AM EST Hayley Torres MD HEMATOLOGY ORDERABLE S [facility] [place] [address] * (ABNORMAL) POC, GLUCOSE (09/27/2024 11:46 PM EST) Glucometer, POC 205(H) 65 - 199 mg/dL 09/27/2024 11:46 PM EST [facility] Comment:Supplemental ranges: <140 mg/dL before meals <180 mg/dL all other times of the day. Blood CAPILLARY BLOOD / Unknown 09/27/2024 11:46 PM EST 09/27/2024 11:46 PM EST Marko Dickson MD POINT OF CARE TEST O RDERABLES [facility] [place] [address] * (ABNORMAL) Blood culture (09/27/2024 9:33 PM EST) [facility] Blood Culture Methicillin Resistant Staphylococcus aureus(Critical) 10/02/2024 8:04 AM EST [facility] Comment:Susceptibilities pre viously reported. Gram Stain Aerobic Bottle: Gram positive cocci in clusters(Critical ) 10/02/2024 8:04 AM EST [facility] Blood VENOUS BLOOD SPECIMEN / Unknown Venipuncture / Unknown 09/27/2024 9:33 PM EST 09/27/2024 9:38 PM EST Marko Dickson MD MICROBIOLOGY - BLOOD ORDERABLES [facility] [place] [address] * POC, GLUCOSE (09/27/2024 7:51 PM EST) Glucometer, POC 142 65 - 199 mg/dL 09/27/2024 7:51 PM EST [facility] Comment:Supplemental ranges: <140 mg/dL before meals <180 mg/dL all other times of the day. Blood CAPILLARY BLOOD / Unknown 09/27/2024 7:51 PM EST 09/27/2024 7:51 PM EST Marko Dickson MD POINT OF CARE TEST O RDERABLES [facility] [place] [address] * (ABNORMAL) Hemogram (09/27/2024 5:55 PM EST) White Blood Cell 19.38(H) 4.00 - 9.50 x10(3)/mc L 09/27/2024 6:16 PM [facility] Red Blood Cell 3.76(L) 4.58 - 5.54 x10(6)/mc L 09/27/2024 6:16 PM [facility] Hemoglobin 11.0(L) 13.7 - 16.5 g/dL 09/27/2024 6:16 PM [facility] Hematocrit 31.6(L) 40.5 - 48.5 % 09/27/2024 6:16 PM [facility] Mean Cell Volume 84.0 82.9 - 93.1 fL 09/27/2024 6:16 PM [facility] Mean Cell Hemoglobin 29.3 27.5 - 32.1 pg 09/27/2024 6:16 PM [facility] Mean Cell Hemoglobin Concentration 34.8 32.0 - 35.7 g/dL 09/27/2024 6:16 PM [facility] Platelet 322 145 - 357 x10(3)/mc L 09/27/2024 6:16 PM [facility] Mean Platelet Volume 9.4 7.6 - 12.9 fL 09/27/2024 6:16 PM [facility] RDW Standard Deviation 39.4 36.0 - 45.0 fL 09/27/2024 6:16 PM EST [facility] RDW coefficient of variation 13.0 11.4 - 13.8 % 09/27/2024 6:16 PM EST [facility] NRBC% auto 0.0 % 09/27/2024 6:16 PM EST [facility] NRBC Absolute <0.01 <0.01 x10(3)/mc L 09/27/2024 6:16 PM EST [facility] Blood VENOUS BLOOD SPECIMEN / Unknown Venipuncture / Unknown 09/27/2024 5:55 PM EST 09/27/2024 6:05 PM EST Marko Dickson MD HEMATOLOGY ORDERABLE S Performing Organization Address [facility]/ZIP Co de Phone Number [facility] [place] [address] * POC, GLUCOSE (09/27/2024 5:48 PM EST) Glucometer, POC 171 65 - 199 mg/dL 09/27/2024 5:48 PM EST [facility] Comment:Supplemental ranges: <140 mg/dL before meals <180 mg/dL all other times of the day. Blood CAPILLARY BLOOD / Unknown 09/27/2024 5:48 PM EST 09/27/2024 5:48 PM EST Marko Dickson MD POINT OF CARE TEST O RDERABLES [facility] [place] [address] * Anaerobic Culture (09/27/2024 4:54 PM EST) Anaerobic Culture No anaerobic organisms isolated 10/01/2024 3:54 PM EST [facility] Tissue STRUCTURE OF LEFT THIGH / Unknown 09/27/2024 4:54 PM EST Comment:Infected explanted l eft leg bypass graft Hayley Torres MD MICROBIOLOGY - GENER AL ORDERABLES [facility] [place] [address] * (ABNORMAL) Tissue Culture, Aerobic Only (09/27/2024 [...] AL ORDERABLES [facility] [place] [address] * Fungus culture (09/27/2024 4:54 PM EST) Fungus Culture No fungus isolated 10/31/2024 7:55 AM EST [facility] Tissue STRUCTURE OF LEFT THIGH / Unknown 09/27/2024 4:54 PM EST 09/27/2024 5:23 PM EST Comment:Infected explanted l eft leg bypass graft Hayley Torres MD MICROBIOLOGY - GENER AL ORDERABLES [facility] [place] [address] * POC, GLUCOSE (09/27/2024 3:23 PM EST) Glucometer, POC 178 65 - 199 mg/dL 09/27/2024 3:23 PM EST [facility] Comment:Supplemental ranges: <140 mg/dL before meals <180 mg/dL all other times of the day. Blood CAPILLARY BLOOD / Unknown 09/27/2024 3:23 PM EST 09/27/2024 3:23 PM EST Marko Dickson MD POINT OF CARE TEST O RDERABLES Performing Organization Address City/[facility]/ZIP Co de Phone Number [facility] [place] [address] * POC, GLUCOSE (09/27/2024 11:29 AM EST) Glucometer, POC 181 65 - 199 mg/dL 09/27/2024 11:29 AM EST [facility] Comment:Supplemental ranges: <140 mg/dL before meals <180 mg/dL all other times of the day. Blood CAPILLARY BLOOD / Unknown 09/27/2024 11:29 AM EST 09/27/2024 11:30 AM EST Marko Dickson MD POINT OF CARE TEST O RDERABLES [facility] [place] [address] * CT Lower Extremity w Contrast Left (09/27/2024 9:16 AM EST) The [employer] Signature WORKSTATION ID [id number] [facility] Anatomical Region Laterality Modality Hip, Leg, [...] who have questions please contact the health pediatric care coordinator that requested your imaging first. [...] patients who have questions please contactthe health pediatric care coordinator that requested your imaging first. Rose Wright APRN IMG CT ORDERABL ES * POC, GLUCOSE (09/27/2024 7:51 AM EST) Pathologist [facility] Glucometer, POC 194 65 - 199 mg/dL 09/27/2024 7:51 AM EST [facility] Comment:Supplemental ranges: <140 mg/dL before meals <180 mg/dL all other times of the day. Blood CAPILLARY BLOOD / Unknown 09/27/2024 7:51 AM EST 09/27/2024 7:51 AM EST Marko Dickson MD POINT OF CARE TEST O RDERABLES [facility] [place] [address] * (ABNORMAL) MRSA PCR Screen (09/27/2024 7:51 AM EST) Pathologist [facility] MRSA PCR Detected(A ) 09/27/2024 11:56 AM EST [facility] Swab BOTH ANTERIOR NARES / Unknown Non Blood Collection / Unknown 09/27/2024 7:51 AM EST 09/27/2024 8:05 AM EST Narrative [facility] - 09/27/2024 11:56 AM EST This test was performed using the Xpert MRSA NxG test kit and is run on the [employer] Simplified GeneXpert Dx System. This test is cleared by the U.S. Food and Drug Administration for clinical use and its performance characteristics have been verified by the [facility] at [facility]. Marko Dickson MD MOLECULAR ORDERABLES [facility] [place] [address] * Potassium (09/27/2024 7:51 AM EST) Potassium 3.5 3.5 - 5.0 mMol/L 09/27/2024 9:09 AM EST [facility] Blood VENOUS BLOOD SPECIMEN / Unknown Venipuncture / Unknown 09/27/2024 7:51 AM EST 09/27/2024 8:05 AM EST Marko Dickson MD CHEMISTRY ORDERABLES Performing Organization Address [facility]/ZIP Co de Phone Number [facility] [place] [address] * (ABNORMAL) Potassium (09/27/2024 5:05 AM EST) [facility] Signature Potassium 3.4(L) 3.5 - 5.0 mMol/L 09/27/2024 5:32 AM EST [facility] Blood VENOUS BLOOD SPECIMEN / Unknown Venipuncture / Unknown 09/27/2024 5:05 AM EST 09/27/2024 5:09 AM EST Marko Dickson MD CHEMISTRY ORDERABLES Performing Organization Address City/[facility]/ZIP Co de Phone Number [facility] [place] [address] * POC, GLUCOSE (09/27/2024 3:52 AM EST) Glucometer, POC 199 65 - 199 mg/dL 09/27/2024 3:52 AM EST [facility] Comment:Supplemental ranges: <140 mg/dL before meals <180 mg/dL all other times of the day. Blood CAPILLARY BLOOD / Unknown 09/27/2024 3:52 AM EST 09/27/2024 3:52 AM EST Marko Dickson MD POINT OF CARE TEST O GILDA Performing Organization Address City/[facility]/ZIP Co de Phone Number [facility] [place] [address] * (ABNORMAL) POC, GLUCOSE (09/27/2024 1:59 AM EST) Glucometer, POC 219(H) 65 - 199 mg/dL 09/27/2024 2:00 AM EST [facility] Comment:Supplemental ranges: <140 mg/dL before meals <180 mg/dL all other times of the day. Blood CAPILLARY BLOOD / Unknown 09/27/2024 1:59 AM EST 09/27/2024 2:00 AM EST Marko Dickson MD POINT OF CARE TEST O GILDA Performing Organization Address [facility]/ZIP Co de Phone Number [facility] [place] [address] * (ABNORMAL) Magnesium (09/27/2024 12:01 AM EST) Magnesium 0.68(L) 0.69 - 1.07 mMol/L 09/27/2024 12:35 AM EST [facility] Blood VENOUS BLOOD SPECIMEN / Unknown Venipuncture / Unknown 09/27/2024 12:01 AM EST 09/27/2024 12:05 AM EST Hayley Torres MD CHEMISTRY ORDERABLES Performing Organization Address City/[facility]/ZIP Co de Phone Number [facility] [place] [address] * (ABNORMAL) Basic Metabolic Panel (09/27/2024 12:01 AM EST) Glucose 261(H) 65 - 199 mg/dL 09/27/2024 12:35 AM EST [facility] Comment:Glucose Concentratio n >=200 mg/dL plus symptoms is consistent with Diabetes Mellitus. Blood Urea Nitrogen 7(L) 10 - 20 mg/dL 09/27/2024 12:35 AM [facility] Creatinine 0.45(L) 0.80 - 1.50 mg/dL 09/27/2024 12:35 AM [facility] Sodium 128(L) 135 - 145 mMol/L 09/27/2024 12:35 AM [facility] Potassium 3.3(L) 3.5 - 5.0 mMol/L 09/27/2024 12:35 AM [facility] Chloride 92(L) 98 - 107 mMol/L 09/27/2024 12:35 AM [facility] Carbon Dioxide 23 22 - 31 mMol/L 09/27/2024 12:35 AM [facility] Anion Gap 13 5 - 15 mMol/L 09/27/2024 12:35 AM [facility] Calcium 8.5 8.5 - 10.5 mg/dL 09/27/2024 12:35 AM [facility] Est Glomerular Filtration Rate - Male 128 mL/min/1. 73 m?? 09/27/2024 12:35 AM [facility] Comment: This patient's estimated GFR [...] CHEMISTRY ORDERABLES [facility] [place] [address] * (ABNORMAL) CBC (with Diff) (09/27/2024 12:01 AM EST) White Blood Cell 23.20(H) 4.00 - 9.50 x10(3)/mc L 09/27/2024 12:10 AM [facility] Red Blood Cell 4.07(L) 4.58 - 5.54 x10(6)/mc L 09/27/2024 12:10 AM [facility] Hemoglobin 11.7(L) 13.7 - 16.5 g/dL 09/27/2024 12:10 AM [facility] Hematocrit 33.6(L) 40.5 - 48.5 % 09/27/2024 12:10 AM [facility] Mean Cell Volume 82.6(L) 82.9 - 93.1 fL 09/27/2024 12:10 AM [facility] Mean Cell Hemoglobin 28.7 27.5 - 32.1 pg 09/27/2024 12:10 AM [facility] Mean Cell Hemoglobin Concentration 34.8 32.0 - 35.7 g/dL 09/27/2024 12:10 AM [facility] Platelet 296 145 - 357 x10(3)/mc L 09/27/2024 12:10 AM [facility] Mean Platelet Volume 9.5 7.6 - 12.9 fL 09/27/2024 12:10 AM [facility] RDW Standard Deviation 37.9 36.0 - 45.0 fL 09/27/2024 12:10 AM [facility] RDW coefficient of variation 12.6 11.4 - 13.8 % 09/27/2024 12:10 AM [facility] NRBC% auto 0.0 % 09/27/2024 12:10 AM [facility] NRBC Absolute <0.01 <0.01 x10(3)/mc L 09/27/2024 12:10 AM [facility] Neutrophil % 83.7 % 09/27/2024 12:10 AM [facility] Neutrophil Absolute (ANC) - Automated 19.43(H) 1.70 - 6.10 x10(3)/mc L 09/27/2024 12:10 AM [facility] Lymph % 6.7 % 09/27/2024 12:10 AM [facility] Lymph Absolute 1.56 0.90 - 3.20 x10(3)/mc L 09/27/2024 12:10 AM [facility] Monocyte % 7.8 % 09/27/2024 12:10 AM [facility] Monocyte Absolute 1.80(H) 0.30 - 0.90 x10(3)/mc L 09/27/2024 12:10 AM [facility] Eos % 0.2 % 09/27/2024 12:10 AM [facility] Eos Absolute 0.04 0.00 - 0.40 x10(3)/mc L 09/27/2024 12:10 AM [facility] Basophil % 0.5 % 09/27/2024 12:10 AM [facility] Baso Absolute 0.12(H) 0.00 - 0.10 x10(3)/mc L 09/27/2024 12:10 AM [facility] Immature Gran % 1.1 % 12:10 AM [facility] Immature Gran Absolute 0.25(H) 0.00 - 0.04 x10(3)/mc L 09/27/2024 12:10 AM [facility] Blood VENOUS BLOOD SPECIMEN / Unknown Venipuncture / Unknown 09/27/2024 12:01 AM EST 09/27/2024 12:05 AM EST Hayley Torres MD HEMATOLOGY ORDERABLE S [facility] [place] [address] * (ABNORMAL) POC, GLUCOSE (09/26/2024 11:59 PM EST) Glucometer, POC 251(H) 65 - 199 mg/dL 09/26/2024 11:59 PM EST [facility] Comment:Supplemental ranges: <140 mg/dL before meals <180 mg/dL all other times of the day. Blood CAPILLARY BLOOD / Unknown 09/26/2024 11:59 PM EST 09/26/2024 11:59 PM EST Marko Dickson MD POINT OF CARE TEST O GILDA [facility] [place] [address] * (ABNORMAL) POC, GLUCOSE (09/26/2024 7:34 PM EST) Glucometer, POC 204(H) 65 - 199 mg/dL 09/26/2024 7:34 PM EST [facility] Comment:Supplemental ranges: <140 mg/dL before meals <180 mg/dL all other times of the day. Blood CAPILLARY BLOOD / Unknown 09/26/2024 7:34 PM EST 09/26/2024 7:35 PM EST Marko Dickson MD POINT OF CARE TEST Stephanie OV [facility] [place] [address] * (ABNORMAL) Blood culture (09/26/2024 6:45 PM EST) Blood Culture Methicillin Resistant Staphylococcus aureus(Critical) 10/01/2024 6:58 AM EST [facility] Comment: isolated. Susceptibilities previously reported. Gram Stain Aerobic Bottle: Gram positive cocci in clusters(Critical ) 10/01/2024 6:58 AM EST [facility] Blood VENOUS BLOOD SPECIMEN / Unknown Venipuncture / Unknown 09/26/2024 6:45 PM EST 09/26/2024 6:48 PM EST Marko Dickson MD MICROBIOLOGY - BLOOD ORDERABLES Performing Organization Address [facility]/ZIP Co de Phone Number [facility] [place] [address] * (ABNORMAL) Sonicated Tissue/Implant Culture (09/26/2024 5:16 [...] - GENER AL ORDERABLES Performing Organization Address City/[facility]/ZIP Co de Phone Number [facility] [place] [address] * Anaerobic Culture (09/26/2024 5:02 PM EST) Anaerobic Culture No anaerobic organisms isolated 09/30/2024 3:51 PM EST [facility] Abscess STRUCTURE OF LEFT KNEE REGION / Unknown Non Blood Collection / Unknown 09/26/2024 5:02 PM EST Comment:Left Below Knee popl iteal fluid Please perform Gram stain if not included in order Hayley Torres MD MICROBIOLOGY - GENER AL ORDERABLES Performing Organization Address City/[facility]/ZIP Co de Phone Number [facility] [place] [address] * (ABNORMAL) Abscess/Wound Aspirate Culture, Aerobic Only [...] - GENER AL ORDERABLES Performing Organization Address City/[facility] Co de Phone Number [facility] [place] [address] * Fungus culture (09/26/2024 5:02 PM EST) Fungus Culture No fungus isolated 10/24/2024 7:54 AM EST [facility] Abscess STRUCTURE OF LEFT KNEE REGION / Unknown Non Blood Collection / Unknown 09/26/2024 5:02 PM EST 09/26/2024 5:08 PM EST Comment:Left Below Knee popl iteal fluid Please perform Gram stain if not included in order Hayley Torres MD MICROBIOLOGY - GENER AL ORDERABLES [facility] [place] [address] * Anaerobic Culture (09/26/2024 4:50 PM EST) Anaerobic Culture No anaerobic organisms isolated 09/30/2024 3:51 PM EST [facility] Abscess LEFT INGUINAL REGION STRUCTURE / Unknown Non Blood Collection / Unknown 09/26/2024 4:50 PM EST Comment:Left Groin Fluid Hayley Torres MD MICROBIOLOGY - GENER AL ORDERABLES [facility] [place] [address] * (ABNORMAL) Abscess/Wound Aspirate Culture, Aerobic Only (09/26/2024 4:50 PM EST) Abscess/Wound Aspirate Culture Many Methicillin Resistant Staphylococcus aureus(A) VITEK 2 METHOD 09/30/2024 1:36 PM EST [facility] Gram Stain Many neutrophils(A) 09/30/2024 1:36 PM EST [facility] Gram Stain Many Gram positive cocci(A) 09/30/2024 1:36 PM EST [facility] Abscess LEFT INGUINAL REGION STRUCTURE [...] - GENER AL ORDERABLES Performing Organization Address [facility] [facility] Co de Phone Number [facility] [place] [address] * Fungus culture (09/26/2024 4:50 PM EST) Pathologist [facility] Fungus Culture No fungus isolated 10/24/2024 7:54 AM [facility] Abscess LEFT INGUINAL REGION STRUCTURE / Unknown Non Blood Collection / Unknown 09/26/2024 4:50 PM EST 09/26/2024 4:56 PM EST Comment:Left Groin Fluid Hayley Torres MD MICROBIOLOGY - GENER AL ORDERABLES Performing Organization Address [facility] Co de Phone Number [facility] [place] [address] * (ABNORMAL) Blood Gas, Arterial POC (09/26/2024 4:43 PM EST) Pathologist [facility] pH, Arterial 7.38 7.35 - 7.45 09/27/2024 7:41 AM [facility] PCO2, Arterial 41 35 - 45 mmHg 09/27/2024 7:41 AM [facility] PO2, Arterial 96 85 - 104 mmHg 09/27/2024 7:41 AM [facility] Bicarbonate, Arterial 23.8 20.0 - 26.0 mmol/L 09/27/2024 7:41 AM [facility] Base Excess, Arterial -1.4 -3.0 - 3.0 mmol/L 09/27/2024 7:41 AM [facility] Hemoglobin, Arterial 12.6(L) 13.7 - 16.5 g/dL 09/27/2024 7:41 AM [facility] Oxyhemoglobin, Arterial 96.2 94.0 - 97.0 % 09/27/2024 7:41 AM [facility] Carboxyhemoglobin , Arterial 0.3 % 09/27/2024 7:41 AM [facility] Comment: Nonsmokers: 0.5-1.5% COHB ?? Smokers: Variable ??but usually less than 10% ?? Toxic: 20-30% COHB ?? Lethal: Greater than 60% COHB Methemoglobin, Arterial 0.3 <=1.5 % 09/27/2024 7:41 AM [facility] Sodium, Arterial 128(L) 135 - 145 mmol/L 09/27/2024 7:41 AM [facility] Potassium, Arterial 3.0(LLL) 3.5 - 5.0 mmol/L 09/27/2024 7:41 AM [facility] Chloride, Arterial 95(L) 98 - 107 mmol/L 09/27/2024 7:41 AM [facility] Lactate, Arterial 1.7 0.5 - 2.2 mmol/L 09/27/2024 7:41 AM [facility] IONIZED CALCIUM, ARTERIAL 1.09(L) 1.15 - 1.33 mmol/L 09/27/2024 7:41 AM [facility] Glucose, Arterial 205(H) 65 - 199 mg/dL 09/27/2024 7:41 AM [facility] Comment:Glucose Concentratio n >=200 mg/dL plus symptoms is consistent with Diabetes Mellitus. Blood ARTERIAL BLOOD / Unknown 09/26/2024 4:43 PM EST 09/27/2024 7:41 AM EST Marko Dickson MD POINT OF CARE TEST O RDERABLES [facility] [place] [address] * (ABNORMAL) POC, GLUCOSE (09/26/2024 4:29 PM EST) Glucometer, POC 213(H) 65 - 199 mg/dL 09/26/2024 4:30 PM [facility] Comment:Supplemental ranges: <140 mg/dL before meals <180 mg/dL all other times of the day. Blood CAPILLARY BLOOD / Unknown 09/26/2024 4:29 PM EST 09/26/2024 4:30 PM EST Marko Dickson MD POINT OF CARE TEST O RDERABLES [facility] [place] [address] * (ABNORMAL) Blood Gas, Venous POC (09/26/2024 3:28 PM EST) pH, Venous 7.43(H) 7.32 - 7.42 09/26/2024 3:30 PM [facility] PCO2, Venous 41 38 - 58 mmHg 09/26/2024 3:30 PM [facility] PO2, Venous 18 16 - 65 mmHg 09/26/2024 3:30 PM [facility] Bicarbonate, Venous 26.6 22 - 31 mmol/L 09/26/2024 3:30 PM [facility] Base Excess, Venous 2.3 1.9 - 4.5 mmol/L 09/26/2024 3:30 PM [facility] Hemoglobin, Venous 12.4(L) 13.7 - 16.5 g/dL 09/26/2024 3:30 PM [facility] Oxyhemoglobin, Venous 26.8 % 09/26/2024 3:30 PM [facility] Carboxyhemoglobin , Venous 1.0 % 09/26/2024 3:30 PM [facility] Comment: Nonsmokers: 0.5-1.5% COHB ?? Smokers: Variable ??but usually less than 10% ?? Toxic: 20-30% COHB ?? Lethal: Greater than 60% COHB Methemoglobin, Venous 0.4 <=1.5 % 09/26/2024 3:30 PM [facility] Sodium, Venous 127(L) 135 - 145 mmol/L 09/26/2024 3:30 PM [facility] Potassium, Venous 3.3(L) 3.5 - 5.0 mmol/L 09/26/2024 3:30 PM [facility] Chloride, Venous 91(L) 98 - 107 mmol/L 09/26/2024 3:30 PM [facility] Glucose, Venous 259(H) 65 - 199 mg/dL 09/26/2024 3:30 PM [facility] Comment:Glucose Concentratio n >=200 mg/dL plus symptoms is consistent with Diabetes Mellitus. Lactate, Venous 2.2 0.5 - 2.2 mmol/L 09/26/2024 3:30 PM [facility] Ionized Calcium, Venous 1.09(L) 1.15 - 1.33 mmol/L 09/26/2024 3:30 PM [facility] Blood VENOUS BLOOD SPECIMEN / Unknown 09/26/2024 3:28 PM EST 09/26/2024 3:30 PM EST Marko Dickson MD POINT OF CARE TEST O RDERABLES Performing Organization Address City/State/[facility] Co de Phone Number [facility] [place] [address] * (ABNORMAL) Scan, Peripheral Blood (09/26/2024 2:39 PM EST) RBC Morphology Abnormal 09/26/2024 3:21 PM [facility] Platelet Estimate Normal Normal 09/26/2024 3:21 PM [facility] Microcyte 1-5 /HPF 09/26/2024 3:21 PM [facility] Platelet Clumps Present(A) (none) 3:21 PM [facility] WBC MORPHOLOGY See Comment(A) (none) 09/26/2024 3:21 PM EST [facility] Comment:Dohle BodiesToxic Gr anulation Blood VENOUS BLOOD SPECIMEN / Unknown Venipuncture / Unknown 09/26/2024 2:39 PM EST 09/26/2024 2:50 PM EST Marko Dickson MD HEMATOLOGY ORDERABLE S [facility] [place] [address] * ABORH RECHECK (PATIENT HISTORY FOUND) (09/26/2024 2:39 PM EST) [facility] ABORH Recheck Progress Complete 09/26/2024 5:01 PM EST [facility] Blood VENOUS BLOOD SPECIMEN / Unknown Venipuncture / Unknown 09/26/2024 2:39 PM EST 09/26/2024 2:56 PM EST Marko Dickson MD BLOOD BANK LAB ORDER RANDELL [facility] [place] [address] * (ABNORMAL) Hepatic Function Panel (09/26/2024 2:39 PM EST) [facility] Albumin 3.1(L) 3.2 - 5.2 g/dL 09/26/2024 4:23 PM EST [facility] Aspartate Aminotransferase 16 <=39 unit/L 09/26/2024 4:23 PM EST [facility] Alanine Aminotransferase 14 0 - 55 unit/L 09/26/2024 4:23 PM EST [facility] Alkaline Phosphatase 160(H) 40 - 130 unit/L 09/26/2024 4:23 PM [facility] Bilirubin, Total 0.4 <=1.3 mg/dL 09/26/2024 4:23 PM [facility] Bilirubin, Direct 0.2 0.0 - 0.3 mg/dL 09/26/2024 4:23 PM EST [facility] Protein, Total 7.0 6.1 - 8.0 g/dL 09/26/2024 4:23 PM EST [facility] Blood VENOUS BLOOD SPECIMEN / Unknown Venipuncture / Unknown 09/26/2024 2:39 PM EST 09/26/2024 2:50 PM EST Marko Dickson MD CHEMISTRY ORDERABLES [facility] [place] [address] * (ABNORMAL) Basic Metabolic Panel (09/26/2024 2:39 PM EST) Glucose 254(H) 65 - 199 mg/dL 09/26/2024 4:32 PM EST [facility] Comment:Glucose Concentratio n >=200 mg/dL plus symptoms is consistent with Diabetes Mellitus. Blood Urea Nitrogen 9(L) 10 - 20 mg/dL 09/26/2024 4:32 PM EST [facility] Creatinine 0.55(L) 0.80 - 1.50 mg/dL 09/26/2024 4:32 PM EST [facility] Sodium 127(L) 135 - 145 mMol/L 09/26/2024 4:32 PM EST [facility] Potassium 3.4(L) 3.5 - 5.0 mMol/L 09/26/2024 4:32 PM EST [facility] Chloride 89(L) 98 - 107 mMol/L 09/26/2024 4:32 PM EST [facility] Carbon Dioxide 25 22 - 31 mMol/L 09/26/2024 4:32 PM EST [facility] Anion Gap 13 5 - 15 mMol/L 09/26/2024 4:32 PM EST [facility] Calcium 8.9 8.5 - 10.5 mg/dL 09/26/2024 4:32 PM EST [facility] Est Glomerular Filtration Rate - Male 121 mL/min/1. 73 m?? 09/26/2024 4:32 PM EST [facility] Comment: This patient's estimated GFR [...] CHEMISTRY ORDERABLES [facility] [place] [address] * (ABNORMAL) CBC (with Diff) (09/26/2024 2:39 PM EST) White Blood Cell 22.76(H) 4.00 - 9.50 x10(3)/mc L 09/26/2024 3:21 PM [facility] Red Blood Cell 4.20(L) 4.58 - 5.54 x10(6)/mc L 09/26/2024 3:21 PM [facility] Hemoglobin 12.3(L) 13.7 - 16.5 g/dL 09/26/2024 3:21 PM [facility] Hematocrit 35.0(L) 40.5 - 48.5 % 09/26/2024 3:21 PM [facility] Mean Cell Volume 83.3 82.9 - 93.1 fL 09/26/2024 3:21 PM [facility] Mean Cell Hemoglobin 29.3 27.5 - 32.1 pg 09/26/2024 3:21 PM [facility] Mean Cell Hemoglobin Concentration 35.1 32.0 - 35.7 g/dL 09/26/2024 3:21 PM [facility] Platelet 277 145 - 357 x10(3)/mc L 09/26/2024 3:21 PM [facility] Mean Platelet Volume 9.6 7.6 - 12.9 fL 09/26/2024 3:21 PM [facility] RDW Standard Deviation 37.9 36.0 - 45.0 fL 09/26/2024 3:21 PM [facility] RDW coefficient of variation 12.6 11.4 - 13.8 % 09/26/2024 3:21 PM [facility] NRBC% auto 0.0 % 09/26/2024 3:21 PM [facility] NRBC Absolute <0.01 <0.01 x10(3)/mc L 09/26/2024 3:21 PM [facility] Neutrophil % 84.0 % 09/26/2024 3:21 PM [facility] Comment:This is an appended report. These results have been appended to a previously preliminary verified report. Neutrophil Absolute (ANC) - Automated 19.10(H) 1.70 - 6.10 x10(3)/mc L 09/26/2024 3:21 PM [facility] Comment:This is an appended report. These results have been appended to a previously preliminary verified report. Lymph % 6.2 % 09/26/2024 3:21 PM [facility] Comment:This is an appended report. These results have been appended to a previously preliminary verified report. Lymph Absolute 1.41 0.90 - 3.20 x10(3)/mc L 09/26/2024 3:21 PM [facility] Comment:This is an appended report. These results have been appended to a previously preliminary verified report. Monocyte % 8.1 % 09/26/2024 3:21 PM [facility] Comment:This is an appended report. These results have been appended to a previously preliminary verified report. Monocyte Absolute 1.85(H) 0.30 - 0.90 x10(3)/mc L 09/26/2024 3:21 PM [facility] Comment:This is an appended report. These results have been appended to a previously preliminary verified report. Eos % 0.0 % 09/26/2024 3:21 PM EST [facility] Comment:This is an appended report. These results have been appended to a previously preliminary verified report. Eos Absolute <0.04 0.00 - 0.40 x10(3)/mc L 09/26/2024 3:21 PM EST [facility] Comment:This is an appended report. These results have been appended to a previously preliminary verified report. Basophil % 0.5 % 09/26/2024 3:21 PM EST [facility] Comment:This is an appended report. These results have been appended to a previously preliminary verified report. Baso Absolute 0.11(H) 0.00 - 0.10 x10(3)/mc L 09/26/2024 3:21 PM EST [facility] Comment:This is an appended report. These results have been appended to a previously preliminary verified report. Immature Gran % 1.2 % 3:21 PM EST [facility] Comment:This is an appended report. These results have been appended to a previously preliminary verified report. Immature Gran Absolute 0.28(H) 0.00 - 0.04 x10(3)/mc L 09/26/2024 3:21 PM [facility] Comment:This is an appended report. These results have been appended to a previously preliminary verified report. Blood VENOUS BLOOD SPECIMEN / Unknown Venipuncture / Unknown 09/26/2024 2:39 PM EST 09/26/2024 2:50 PM EST Hayley Torres MD HEMATOLOGY ORDERABLE S [facility] [place] [address] * Phosphorus (09/26/2024 2:39 PM EST) Phosphorus 3.2 2.5 - 4.5 mg/dL 09/26/2024 4:05 PM [facility] Blood VENOUS BLOOD SPECIMEN / Unknown Venipuncture / Unknown 09/26/2024 2:39 PM EST 09/26/2024 2:50 PM EST Marko Dickson MD CHEMISTRY ORDERABLES Performing Organization Address City/[facility]/ZIP Co de Phone Number [facility] [place] [address] * (ABNORMAL) Magnesium (09/26/2024 2:39 PM EST) Magnesium 0.65(L) 0.69 - 1.07 mMol/L 09/26/2024 4:05 PM EST [facility] Blood VENOUS BLOOD SPECIMEN / Unknown Venipuncture / Unknown 09/26/2024 2:39 PM EST 09/26/2024 2:50 PM EST Marko Dickson MD CHEMISTRY ORDERABLES Performing Organization Address City/[facility]/ZIP Co de Phone Number [facility] [place] [address] * Type and screen ([facility]/CGP/BABITA) (09/26/2024 2:39 PM EST) Pathologist [facility] ABORH Type A POSITIVE 09/26/2024 3:45 PM EST [facility] PATIENT HISTORY Found 09/26/2024 3:45 PM EST [facility] Expires at [id number] on: 09/29/2024 09/26/2024 3:45 PM EST [facility] ANTIBODY SCREEN AUTOMATED Negative 09/26/2024 3:45 PM EST [facility] T&S only valid at [facility] 09/26/2024 3:45 PM EST [facility] Blood VENOUS BLOOD SPECIMEN / Unknown Venipuncture / Unknown 09/26/2024 2:39 PM EST 09/26/2024 2:56 PM EST Narrative [facility] - 09/26/2024 3:45 PM EST This Type and Screen result is only valid at the [facility] Marko Dickson MD BLOOD BANK LAB ORDER RANDELL Performing Organization Address City/[facility]/ZIP Co de Phone Number [facility] [place] [address] * (ABNORMAL) Fibrinogen (09/26/2024 2:39 PM EST) [...] MD HEMATOLOGY ORDERABLE S Performing Organization Address [facility] Co de Phone Number [facility] [place] [address] * APTT (09/26/2024 2:39 PM EST) Partial [...] MD HEMATOLOGY ORDERABLE S Performing Organization Address City/[facility] Co de Phone Number [facility] [place] [address] * (ABNORMAL) Prothrombin Time (09/26/2024 2:39 PM [...] MD HEMATOLOGY ORDERABLE S Performing Organization Address [facility] Co de Phone Number [facility] [place] [address] * (ABNORMAL) POC, GLUCOSE (09/26/2024 2:36 PM EST) Glucometer, POC 268(H) 65 - 199 mg/dL 09/26/2024 2:36 PM EST [facility] Comment:Supplemental ranges: <140 mg/dL before meals <180 mg/dL all other times of the day. Blood CAPILLARY BLOOD / Unknown 09/26/2024 2:36 PM EST 09/26/2024 2:36 PM EST Marko Dickson MD POINT OF CARE TEST O RDERABLES Performing Organization Address City/[facility]/ZIP Co de Phone Number [facility] [place] [address] * (ABNORMAL) Blood culture (09/26/2024 2:22 PM EST) Blood Culture Methicillin Resistant Staphylococcus aureus(Critical) VITEK 2 METHOD 10/07/2024 7:40 AM EST [facility] Comment: detected by PCR Isolate saved. If future testing is required, contact the Microbiology Civil Estimator. Gram Stain Aerobic Bottle: Gram positive cocci in clusters(Critical ) 10/07/2024 7:40 AM EST [facility] [...] MICROBIOLOGY - BLOOD ORDERABLES Performing Organization Address City/State/[facility] Co de Phone Number [facility] [place] [address] * Request For 2nd Read CT Lower Extremity (09/26/2024 1:50 PM EST) [employer] WORKSTATION ID [id number] RAD Anatomical Region Laterality Modality Hip, Leg, [...] who have questions please contact the health pediatric care coordinator that requested your imaging first. ? Narrative 09/26/2024 3:01 PM EST EXAMINATION: REQUEST FOR 2ND READ CT LOWER EXTREMITY CLINICAL HISTORY: Pt s/p LLE femoral-below knee popliteal bypass with PTFE graft, c/f infection surrounding graft, en route to [facility] for possible vascular surgery intervention; Sending Institution [facility]; Date of exam [id number]; I believe a [...] on series 3, image 8 and 641, 162, [phone], 982. No other rim-enhancing fluid collection is seen. [...] c/f infection surrounding graft, en route to [facility] for possiblevascular surgery intervention; Sending Institution [facility]; Date of exam [id number]; Ibelieve a reinterpretation [...] on series 3, image 8 and 641, [phone]. No other rim-enhancing fluid collection is seen. [...] patients who have questions please contactthe health pediatric care coordinator that requested your imaging first. Marko Dickson [...] 0831 (Given - Provider: Terell Araiza, RN) atorvastatin (Lipitor) tablet 80 mg (CANCELED) [...] RN) 0615 (Given - Provider: Jordyn Navas RN)1415 (Given - Provider: Indira Tracey RN)211 (Given - Provider: Lauren Zavala, DAVID) 0605 (Given - Provider: Lauren Zavala RN)1446 [...] Terell Araiza RN)1333 (Given - Provider: Terell Araiza, RN)1700 [...] Provider: Indira Tracey RN)2030 (Given - Provider: Jrodyn Navas, DAVID) 0035 (Given - Provider: Jordyn [...] RN) 0902 (Given - Provider: Jaja Diallo, DAVID)2022 (Given - Provider: Lauren Zavala, DAVID) 0831 (Given - Provider: Terell Araiza, DAVID) [...] Provider: Jordyn Navas RN)1222 (Given - Provider: nIdira Tracey RN)1708 (Given - Provider: Jeana Cabrera [...] Navas RN) 0902 (Not Given - Provider: Jjaa Diallo RN - Reason: Patient/family refused)2100 (Not [...] Routine documented in this encounter Care Teams Business Banking Representative Relationship Specialty Start Date End Date Charles Romero [place] [address] PCP - General Internal Medicine 09/18/24 documented as of this encounter
--- OUTSIDE RECORDS SUMMARY | 2024-10-31 15:34 | XMS_ITS | Encounter Summary ---
Author Organization [facility] [place] [address] Care Team Providers Care Insurance Sales Professional Name Role Phone Charles Romero Primary Care Provider + Reason for Visit * Auth/Cert (Routine) Specialty Diagnoses / Procedures Referred By William t Referred To Contact Diagnoses Vascular graft infection, initial encounter Sepsis [A41.9] T82.7XXA Procedures EMERGENCY IPI Angel Gonsalez MD [facility] [place] [address] [facility] Referral ID Status Reason Start Date Expiration Date Visits Re quested Visits Authorized [id number] 1 1 Encounter Details Date Type Department Care Team (Late st Contact Info) Description 09/29/2024 2:07 PM EST Anesthesia Event [place] [address] Penny Mathias MD [facility] [place] [address] Marko Mckeon CRNA [facility] [place] [address] Anesthesia Record Procedure Summary Procedure Name Responsible [...] by Liana Mccormack RN PIV 09/26/24; 1200; qbih-szd-abbkck catheter system; 18 gauge; median cubital vein (antecubital fossa), left; [facility]; site symptomatic; 10/04/24; 1100 09/26/24 1200 by Pamela Eli RN 10/04/24 1100 by Liana Mccormack RN PIV 09/26/24; 1534; 20 gauge; basilic vein (medial side of arm), right; site symptomatic; 10/04/24; 1100 09/26/24 1534 by Pamela Eli RN 10/04/24 1100 by Liana Mccormack RN PIV 09/26/24; 1620; sqce-pav-gqmqjc catheter system; 14 gauge; median cubital vein [...] Removal Time: 15109/29/24 1424 by Marko Mckeon, BUSINESS INTELLIGENCE ARCHITECT 09/29/24 1515 by Marko Mckeon CRNA Intentionally [...] e alcohol) [facility] Utilities Answer Date Recorded [...] in a alf (including now)? No 09/27/2024 IPV Inpatient Questions [...] Procedure Summary Date: 09/29/24 Room / Location: [facility] MAIN OR Anesthesia Start: 1407 Anesthesia Stop: 1516 Procedures: @EXPLORATION W\O SURGICAL REPAIR, FEMORAL ARTERY - JENNIFER (WRVU 7.5) (Left: Leg) DEBRIDEMENT SKIN, SUBCU, MUSCLE, LOWER EXTREMITY (WRVU 2.7) (Left) Diagnosis: (explanted LLE infected graft) Surgeons: Taylor Ruiz MD Responsible Provider: Penny Mathias MD Anesthesia Type: general ASA Status: 4 All Anesthesia Providers: Anesthesiologist: Penny Mathias MD BUSINESS INTELLIGENCE ARCHITECT: Marko Mckeon CRNA Vitals Value Taken Time [...] performed by Thony Garcia MD at [facility] OR ??? PRO BYPASS GRAFT OTHR, FEM-TIBIAL Left 08/01/2024 @BYPASS GRAFT, FEM-ANT TIBIAL, -POST TIBIAL, -PERONEAL, -DP W\ SYNTHETIC CONDUIT (WRVU 23.66) performed by Lisette Maldonado MD at [facility] OR ??? PRO CABG, ARTERY-VEIN, SINGLE 01/04/2012 @CABG, VENOUS & ARTERIAL GRAFT;SINGLE VEIN GRAFT performed by INNA TOVAR at [facility] OR ? ? PRO DEBRIDEMENT SUBCUTANEOUS TISSUE 20 SQCM/< Left 09/27/2024 DEBRIDEMENT SKIN AND SUBCU, LOWER EXTREMITY (WRVU 1.01) performed by Hayley Torres MD at [facility] OR ??? PRO DRAIN LOWER LEG DEEP ABSC/HEMATOMA Left 09/26/2024 INCISION & DRAINAGE, LEG OR ANKLE, DEEP ABSCESS OR HEMATOMA (WRVU 5.23) performed by Hayley Torres MD at [facility] OR ??? PRO ENDOSCOPY W/VIDEO-ASST VEIN HARVEST, CABG 01/04/2012 ENDOSCOPIC HARVEST VEIN(S) FOR CABG performed by INNA TOVAR at [facility] OR ??? PRO EXCISION, INFEC GRAFT, EXTREMITY Left 09/26/2024 EXCISION OF INFECTED GRAFT FROM LOWER EXTREMITY (WRVU 9.53) performed by Hayley Torres MD at [facility] MAIN OR ? ? PRO I&D DEEP ABSCESS BURSA/HEMATOMA THIGH/KNEE REGION Left 09/26/2024 INCISION & DRAINAGE ABSCESS OR HEMATOMA, THIGH, KNEE SUPERFICIAL (WRVU 6.78) performed by Hayley Torres MD at [facility] MAIN OR ??? VS ARTERIOGRAM [...] with patient. Plan discussed with attending and BUSINESS INTELLIGENCE ARCHITECT. Anesthesia Screening documented in this encounter Plan of Treatment Upcoming Encounters Date Type Department Care Team (Late st Contact Info) Description 11/09/2024 1:30 PM EST Office [place] [address] Isabela Hayward APRN [facility] [place] [address] 11/10/2024 10:00 AM EST Office Visit [place] [address] Dai Whitman, RESHMA 11/21/2024 2:15 PM EST Office [place] [phone] Dayanara Grover MD [facility] [place] [address] documented as of this encounter Visit Diagnoses [...] mg documented in this encounter Care Teams Insurance Sales Professional Relationship Specialty Start Date End Date Charles Romero PA [facility] [place] [address] PCP - General Internal Medicine 09/18/24 documented as of this encounter
--- OUTSIDE RECORDS SUMMARY | 2024-10-31 15:35 | XMS_ITS | Encounter Summary ---
Author Organization [facility] [place] [address] Care Team Providers Care Psychology Department Chair Name Role Phone Charles Romero Primary Care Provider + Reason for Visit * Auth/Cert (Routine) Specialty Diagnoses / Procedures Referred By William moses Referred To Contact Diagnoses Vascular graft infection, initial encounter Sepsis [A41.9] T82.7XXA Procedures EMERGENCY IPI Angel Gonsalez MD [facility] [address] [facility] Referral ID Status Reason Start Date Expiration Date Visits Re quested Visits Authorized [id number] 1 1 Encounter Details Date Type Department Care Team (Late st Contact Info) Description 09/28/2024 11:29 AM EST Anesthesia Event [place] [address] Isabel Longoria MD [facility] [place] [address] Anesthesia Record Procedure Summary Procedure Name Responsible [...] toe; 10/06/24; 0942 07/19/24 0946 by Alan Toibas RN 10/06/24 0942 by Liana Mccormack RN PIV 09/26/24; 1200; hofz-ilg-zdhctl catheter system; 18 gauge; median cubital vein (antecubital fossa), left; [facility]; site symptomatic; 10/04/24; 1100 09/26/24 1200 by Pamela Eli RN 10/04/24 1100 by Liana Mccormack RN PIV 09/26/24; 1534; 20 gauge; basilic vein (medial side of arm), right; site symptomatic; 10/04/24; 1100 09/26/24 1534 by Pamela Eli RN 10/04/24 1100 by Liana Mccormack RN PIV 09/26/24; 1620; jqrv-gkd-wqftty catheter system; 14 gauge; median cubital vein (antecubital fossa), right; Ultrasound Guidance; Pat Esther; 10/02/24; 1000 09/26/24 1620 by Jules Christopher CRNA 10/02/24 1000 by Cyndi Castro RN Urethral Catheter 09/26/24; 1620; Surg wei longer than 2 hours, Physician order, Need for intraoperative urine output monitoring; Immobility without alternative; indwelling double lumen catheter; hydrophilic coated, latex; 14; inserted at [facility]; 1; 5; 10; none; drainage bag; [...] Time: 1631 09/28/24 1143 by Yamilex Souza, FARM OWNER OPERATOR 09/28/24 1631 by Yamilex Souza CRNA Arterial [...] has e electric, gas, oil, or water [employer]cko threatened to shut off services in your [...] in a residential (including now)? No 09/27/2024 DH IPV Inpatient [...] Procedure Summary Date: 09/28/24 Room / Location: [facility] OR [address] [place] [address] MAIN OR Anesthesia Start: 1129 Anesthesia Stop: 1641 Procedure: REV. FEM. ANASTOMOSIS OF SYN. BYPASS GRAFT USING NONAUTOGENOUS PATCH ANGIOPLASTY-JENNIFER (WRVU 23.15) (Left: Leg) Diagnosis: (Infected explanted left leg bypass graft) Surgeons: Hayley Torres MD Responsible Provider: Isabel Longoria MD Anesthesia Type: general ASA Status: 3 All Anesthesia Providers: Anesthesiologist: Isabel Longoria MD FARM OWNER OPERATOR: Yamilex Souza CRNA Vitals Value Taken Time [...] 3.51) performed by Thony Garcia MD at [facility] MAIN OR PRO BYPASS GRAFT OTHR, FEM-TIBIAL Left 08/01/2024 @BYPASS GRAFT, FEM-ANT TIBIAL, -POST TIBIAL, -PERONEAL, -DP W\ SYNTHETIC CONDUIT (WRVU 23.66) performed by Lisette Maldonado MD at [facility] MAIN OR PRO CABG, ARTERY-VEIN, SINGLE 01/04/2012 @CABG, VENOUS & ARTERIAL GRAFT;SINGLE VEIN GRAFT performed by INNA TOVAR at [facility] MAIN OR PRO ENDOSCOPY W/VIDEO-ASST VEIN HARVEST, CABG 01/04/2012 ENDOSCOPIC HARVEST VEIN(S) FOR CABG performed by INNA TOVAR at [facility] MAIN OR PRO EXCISION, INFEC GRAFT, EXTREMITY Left 09/26/2024 EXCISION OF INFECTED GRAFT FROM LOWER EXTREMITY (WRVU 9.53) performed by Hayley Torres MD at [facility] MAIN OR VS ARTERIOGRAM LOWER EXTREMITY VASCULAR SURGERY 07/20/2024 VS Arteriogram Lower Extremity Vascular Surgery 07/20/2024 Taylor Ruiz MD [facility] INTERVENTIONL RAD Social History Tobacco Use [...] risks discussed with patient. Plan discussed with FARM OWNER OPERATOR. Anesthesia Screening documented in this encounter Plan of Treatment Upcoming Encounters Date Type Department Care Team (Late st Contact Info) Description 11/09/2024 1:30 PM EST Office [place] [phone] Isabela Hayward, VIDEO EDITOR [facility] [place] [address] 11/10/2024 10:00 AM EST Office [place] [phone] Dai Whitman APRN 11/21/2024 2:15 PM EST Office [place] [address] Dayanara Grover MD [facility] [place] [address] documented as of this encounter Visit Diagnoses [...] injection syringe Intravenous, PRN, Starting on Angelita 11/21/24 at 1138, Until Angelita 09/28/24 at 1645, [...] mg documented in this encounter Care Teams Psychology Department Chair Relationship Specialty Start Date End Date Charles Romero PA [address] [facility] [place] [address] PCP - General Internal Medicine 09/18/24 documented as of this encounter
--- OUTSIDE RECORDS SUMMARY | 2024-10-31 15:35 | XMS_ITS | Encounter Summary ---
Author Organization [facility] [address] Care Team Providers Care Laundry Operator Wash Room Name Role Phone Charles Romero Primary Care Provider + Reason for Visit * Auth/Cert (Routine) Specialty Diagnoses / Procedures Referred By William moses Referred To Contact Diagnoses Vascular graft infection, initial encounter Sepsis [A41.9] T82.7XXA Procedures EMERGENCY IPI Angel Gonsalez MD [facility] [place] [address] [facility] Referral ID Status Reason Start Date Expiration Date Visits Re quested Visits Authorized [id number] 1 1 Encounter Details Date Type Department Care Team (Late st Contact Info) Description 09/29/2024 2:11 PM EST - 09/29/2024 3:47 PM EST Surgery [place] [address] Anabel Finney MD [facility] [place] [address] @EXPLORATION W\O SURGICAL REPAIR, FEMORAL ARTERY - [...] Operations/Major Procedures: 09/26/24: Explant of infected LEFT CRUDE UNIT OPERATOR to below-knee popliteal artery PTFE bypass graft [...] 2nd toe amputation who was transferred from [facility] given concern for infected left fem-BK [...] pericardial patch and PTFE willard over the CRUDE UNIT OPERATOR was unincorporated. - Resection of prior femoral [...] 2 tablespoons of dried fruit. Milk and sr-ilsny-nuuey yogurt have 15 grams of carbs in a serving. A serving is 1 cup of milk or 3/4 cup (6 oz) of fd-uwllw-eqgbr yogurt. Starchy vegetables have 15 grams of carbs in a serving. A serving is ?? cup of mashed potatoes or sweet potato; 1 cup winter squash; ?? of a small baked potato; ?? cup of cooked beans; or ?? cup cooked corn or green peas. Learn how much carbs to eat each day and at each meal. A dietitian or certified respiratory therapist can teach you how to keep track [...] was scheduled for a f/u nutrition evaluation. Custodial Engineer met pt at bedside. Pt sharedthat his [...] Based on current findings- home (sister & srslmrx-cw-uhj's home) Consult Recommendations: No other consults recommended [...] signs stable. Estimated Blood Loss: None Karolyn Hduson MD Vascular Surgery, 9475 10/09/24 Important Studies and Lab Data: Labs: [...] 05/29/2024, no significant changes. Procedure Limited - 28475. Doppler - 69213. Color Doppler - 78285. Suboptimal quality. This study is limited because [...] on series 3, image 8 and 641, 742, 152, 692. No other rim-enhancing fluid collection is seen. [...] wedged between the vastus medialis and adductor [place] muscle. This tracks into the popliteal fossa [...] PM Isabela Hayward APRN Infectious Disease at [facility] Arrive at: Home [phone] To view instructions for your video visit, click here, or visit this website: [email or web address] If you have not previously downloaded the [facility] patient portal software, Siine, please do so by clicking one of the links below or searching in your device's lobito store. [employer] Online devices 11/09/2024 1:30 PM Isabela Hayward APRN Infectious Disease at [facility] Arrive at: House Moving Supervisor Area [phone] 11/21/2024 2:15 Dayanara Nascimento MD Endocrinology at [facility] Arrive at: House Moving Supervisor Area 3A [phone] Future Orders Complete By Expires CBC (with Diff) [[id number] Custom] 10/17/2024 12/11/2024 Process Instructions: INCLUDES: WBC, RBC, Hgb, Hct, Platelets, RBC Indices and Differential Scheduling Instructions: Comments: Questions: OPAT: Order / Recommendation for Post Discharge IV Antibiotic Management [DNG634 CPT(R)] As directed Process Instructions: If no progress note charted, please enter Clinical details in comments. Scheduling Instructions: Comments: - If this order was signed greater than 72 hours prior to [facility] discharge, please call to confirm the accuracy of this order. Please Fax all results to: OPAT Program Infectious Disease Section [facility], [place] [address] FAX: - After hours, please contact the Infectious Disease Physician energy professional at . - Line care instructions - see flush/heparin orders. Facilities may follow organizational policies/practices regarding heparin. - detention for medication administration/supervisor counseling and guidance and catheter care/maintenance authorized. - CVC/PICC Dressing Change weekly and PRN Please use CHG or Bio Patch RN: Please care for PICC line including dressing changes weekly and prn. Please draw labs every Wednesday and PRN and fax results to [facility] at [phone]. Please draw labs off PICC line. [facility]. Please RN visit for IV ABX teaching and ongoing assessment. Jail for Medication Administration/Hookup and catheter care/maintenance: - Teach Patient/Caregiver goals/self-monitoring/therapy administration to independence per the Nursing Care Plan. - detention visit frequency; initial, weekly and 2 PRN [...] Amaya Hernandez MD Referral for Outpatient Antibiotics [VOS0527 CPT(R)] As directed Process Instructions: Scheduling Instructions: [...] Jr. for admission to Home Health. [address] [facility] [address] Phone Number: [phone] (home) Date of : 1975 Inpatient DOCUMENTATION FOR VNA SERVICES (INCLUDING THOSE PATIENTS WITH MEDICARE COVERAGE REQUIRING HOME VNA SERVICES AND/OR HOSPICE SERVICES) PATIENT'S LOCATION: Geovanna Dixon Jr. [address] [facility] [address] [phone] (home) Cell: Telephone Information: Last Turner's Name: Geovanna In discussion with the attending physician, it is certified that this patient is under their care and that they, or a Nurse Practitioner, Clinical Nurse specialist or Physician Steam Tunnel Feeder who is working directly with them, had [...] for managing ADLs. HOME HEALTH CARE AGENCY: [facility] [address] [place] [address] START OF CARE: within 24-48 hours of discharge Patient has Medicare Please note that any additional orders needs or changes will need to be obtained from this patient's PCP: JUSTIN Roberson [address] [facility] [address] . All VNA agencies which cover the area of patient's residence have been reviewed, either verbally or in writing, andpatient/family have chosen the home health care agency noted. Questions: Disciplines Requested: Nursing Physical Therapy Occupational Therapy Recurring Lab Work Interval Expires CBC (with Diff) [[id number] Custom] Once a week until 12/10/2024 12/10/2024 [...] For any problems or questions please call [phone] For issues on weeknights after 5pm and weekends please call [phone] and ask for the Vascular Fellow energy professional. Discharge Medications: Your Medications New Medications Dose [...] - See Instructions). FLUSH PROTOCOL WITH MEDICATIONS ([facility]): Before med infusion: flush with NS 10 [...] can get this completed at 3L at [facility] prior to your scheduled appointment. [...] For any problems or questions please call [phone] For issues on weeknights after 5pm and weekends please call [phone] and ask for the Vascular Fellow energy professional. documented in this encounter Discharge Instructions * [...] 2 tablespoons of dried fruit. Milk and gk-helon-vxbmh yogurt have 15 grams of carbs in a serving. A serving is 1 cup of milk or 3/4 cup (6 oz) of em-uhvfn-qhnmh yogurt. Starchy vegetables have 15 grams of carbs in a serving. A serving is ?? cup of mashed potatoes or sweet potato; 1 cup winter squash; ?? of a small baked potato; ?? cup of cooked beans; or ?? cup cooked corn or green peas. Learn how much carbs to eat each day and at each meal. A dietitian or certified respiratory therapist can teach you how to keep track [...] can get this completed at 3L at [facility] prior to your scheduled appointment. [...] For any problems or questions please call [phone] For issues on weeknights after 5pm and weekends please call [phone] and ask for the Vascular Fellow energy professional. documented in this encounter Medications at Time [...] - See Instructions). FLUSH PROTOCOL WITH MEDICATIONS ([facility]): Before med infusion: flush with NS 10 [...] - See Instructions). FLUSH PROTOCOL WITH MEDICATIONS ([facility]): Before med infusion: flush with NS 10 [...] to contact. Reviewed roles and responsibilities of FRENCH BINDING FOLDER and infusion vendor. Contact information for ID and Vascular team/clinic, FRENCH BINDING FOLDER and infusion vendor given to pt. Discussed f/u appointments in ID 5C clinic, telephone and tele health. Pt verbalized understanding. All questions answered. IV & PO ABX Medications: Daptomycin 700mg IV daily Start/anticipated end date: 10/10/24-11/10/24 FRENCH BINDING FOLDER: [employer] Infusion vendor: [employer] [facility] IV Access: 4 Fr. single lumen [...] 2 tablespoons of dried fruit. Milk and oz-fbcjp-fttjd yogurt have 15 grams of carbs in a serving. A serving is 1 cup of milk or 3/4 cup (6 oz) of ev-qzpvz-gwejn yogurt. Starchy vegetables have 15 grams of carbs in a serving. A serving is ?? cup of mashed potatoes or sweet potato; 1 cup winter squash; ?? of a small baked potato; ?? cup of cooked beans; or ?? cup cooked corn or green peas. Learn how much carbs to eat each day and at each meal. A dietitian or certified respiratory therapist can teach you how to keep track [...] this time. OT to complete orders. Pager: [phone] Fabián Burrows OT 10/09/2024 Occupational Therapy Rehabilitation [...] 2nd toe amputation who was transferred from [facility], 09/26/24 given concern for infected left fem-BK popliteal PTFE bypass. He is now s/p an explant of an infected left femoral-below knee popliteal artery bypass graft (09/26), I/D groin abscess (09/27), L GSV harvest, vein patch angioplasty, L CRUDE UNIT OPERATOR and BK pop w/ sartorius flap L fem, I/D, 09/29 L sartorius flap revision, vac change. 10/03/24 NPO at [facility] for OR wound exploration. Wound vac [...] He mentions he'll stay with sister and tngenxb-jd-lfy upon DC. Pt resting in bed upon [...] up with R and down with L, cjub-ws-chzb. Balance: Sitting: NORMAL- EOB unsupported good postural [...] Based on current findings- home (sister & zlsyzsc-sx-vrq's home) Consult Recommendations: No other consults recommended [...] 15 (TE-F) minutes TERRY JIMENEZ PT Pager: [phone] Physical Therapy Inpatient Rehabilitation Department * María [...] 2nd toe amputation who was transferred from [facility] given concern for infected left fem-BK [...] smoking 1 week ago. He presented to [facility] on 09/26 and went to [...] Procedure Component Value - Date/Time Blood culture [[id number]] (Abnormal) (Susceptibility) Collected: 09/26/24 1422 Lab Status: Edited Result - FINAL Specimen: Blood, Venous Updated: 10/07/24 0740 Blood Culture Methicillin Resistant Staphylococcus aureus Comment: detected by PCR Isolate saved. If future testing is required, contact the Microbiology Pourer Buggy Ladle. Gram Stain Aerobic Bottle: Gram positive cocci in clusters Susceptibility Methicillin Resistant Staphylococcus aureus MINIMUM INHIBITORY CONCENTRATION VITEK 2 METHOD Clindamycin Resistant Daptomycin Susceptible Gentamicin Susceptible [1] Linezolid Susceptible Oxacillin Resistant Trimethoprim/Sulfa Susceptible Vancomycin Susceptible [1] Gentamicin is not appropriate for monotherapy for gram-positive infections. AFB culture [[id number]] Collected: 09/27/24 1654 Lab Status: Preliminary result Specimen: Tissue from Thigh, Left Updated: 10/05/24 1201 Acid Fast Bacilli Culture No acid fast bacilli isolated at 1 week. Acid Fast Stain No acid fast bacilli seen Blood culture [[id number]] Collected: 09/29/242123 Lab Status: Final result Specimen: Blood, Venous Updated: 10/04/24 2301 Blood Culture No growth at 120 hours Blood culture [[id number]] Collected: 09/29/242123 Lab Status: Final result Specimen: Blood, Venous Updated: 10/04/24 2301 Blood Culture No growth at 120 hours AFB culture [[id number]] Collected: 09/26/24 1702 Lab Status: Preliminary result Specimen: Abscess from Knee, Left Updated: 10/04/24 1201 Acid Fast Bacilli Culture No acid fast bacilli isolated at 1 week. Acid Fast Stain No acid fast bacilli seen Blood culture [[id number]] Collected: 09/28/24 1749 Lab Status: Final result [...] 2nd toe amputation who was transferred from [facility] given concern for infected left fem-BK popliteal PTFE bypass. 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 10/09/24: Progressing well post surgically. Will pull medial thigh drain today, retain sartorius flap drain along with wound vac x 3 sponges ([facility] vac) and [...] PRN PICC dressing change completed as per [facility] protocol. Positive pressure displacement connector [...] 2nd toe amputation who was transferred from [facility] given concern for infected left fem-BK [...] smoking 1 week ago. He presented to [facility] on 09/26 and went to [...] Procedure Component Value - Date/Time Blood culture [[id number]] (Abnormal) (Susceptibility) Collected: 09/26/24 1422 Lab Status: Edited Result - FINAL Specimen: Blood, Venous Updated: 10/07/24 0740 Blood Culture Methicillin Resistant Staphylococcus aureus Comment: detected by PCR Isolate saved. If future testing is required, contact the Microbiology Pourer Buggy Ladle. Gram Stain Aerobic Bottle: Gram positive cocci in clusters Susceptibility Methicillin Resistant Staphylococcus aureus MINIMUM INHIBITORY CONCENTRATION VITEK 2 METHOD Clindamycin Resistant Daptomycin Susceptible Gentamicin Susceptible [1] Linezolid Susceptible Oxacillin Resistant Trimethoprim/Sulfa Susceptible Vancomycin Susceptible [1] Gentamicin is not appropriate for monotherapy for gram-positive infections. AFB culture [[id number]] Collected: 09/27/241653 Lab Status: Preliminary result Specimen: Tissue from Thigh, Left Updated: 10/05/24 1201 Acid Fast Bacilli Culture No acid fast bacilli isolated at 1 week. Acid Fast Stain No acid fast bacilli seen Blood culture [[id number]] Collected: 09/29/242123 Lab Status: Final result Specimen: Blood, Venous Updated: 10/04/24 2301 Blood Culture No growth at 120 hours Blood culture [[id number]] Collected: 09/29/242123 Lab Status: Final result Specimen: Blood, Venous Updated: 10/04/24 2301 Blood Culture No growth at 120 hours AFB culture [[id number]] Collected: 09/26/24 1702 Lab Status: Preliminary result Specimen: Abscess from Knee, Left Updated: 10/04/24 1201 Acid Fast Bacilli Culture No acid fast bacilli isolated at 1 week. Acid Fast Stain No acid fast bacilli seen Blood culture [[id number]] Collected: 09/28/24 1749 Lab Status: Final result Specimen: Blood, Venous Updated: 10/03/24 1901 Blood Culture No growth at 120 hours Blood culture [[id number]] (Abnormal) Collected: 09/27/24 2133 Lab Status: Final result Specimen: Blood, Venous Updated: 10/02/24 0804 Blood Culture Methicillin Resistant Staphylococcus aureus Comment: Susceptibilities previously reported. Gram Stain Aerobic Bottle: Gram positive cocci in clusters Tissue Culture, Aerobic & Anaerobic [[id number]] Collected: 09/27/241653 Lab Status: Final result Specimen: Tissue from Thigh, Left Updated: 10/01/24 1554 Narrative: The following orders were created for panel order Tissue Culture, Aerobic & Anaerobic. Procedure Abnormality Status --------- ------ Tissue Culture, Aerobic ...[[id number]] Anaerobic Culture[[id number]] Final result Please view results for these tests on the individual orders. Anaerobic Culture [[id number]] Collected: 09/27/241653 Lab Status: Final result Specimen: Tissue from Thigh, Left Updated: 10/01/24 1554 Anaerobic Culture No anaerobic organisms isolated Tissue Culture, Aerobic Only [[id number]] (Abnormal) (Susceptibility) Collected: 09/27/241653 Lab Status: Final [...] 2nd toe amputation who was transferred from [facility] given concern for infected left fem-BK popliteal PTFE bypass. He is now s/p an explantof an infected left femoral-below knee popliteal artery bypass graft (09/26), I/D groin abscess (), L GSV harvest, vein patch angioplasty, L CRUDE UNIT OPERATOR and BK pop w/ sartorius flap L [...] 81mg daily Vibha Benson APRN 10/08/2024 Pager: [phone] * Vibha Benson APRN - 10/07/2024 8:52 AM EST Images from the original note were not included. Vascular Surgery Progress Note Geovanna Dixon Jr. is a 49 y.o. 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 He presented to [facility] on 09/26 and went to [...] Procedure Component Value - Date/Time Blood culture [[id number]] (Abnormal) (Susceptibility) Collected: 09/26/24 1422 Lab Status: Edited Result - FINAL Specimen: Blood, Venous Updated: 10/07/24 0740 Blood Culture Methicillin Resistant Staphylococcus aureus Comment: detected by PCR Isolate saved. If future testing is required, contact the Microbiology Pourer Buggy Ladle. Gram Stain Aerobic Bottle: Gram positive cocci in clusters Susceptibility Methicillin Resistant Staphylococcus aureus MINIMUM INHIBITORY CONCENTRATION VITEK 2 METHOD Clindamycin Resistant Daptomycin Susceptible Gentamicin Susceptible [1] Linezolid Susceptible Oxacillin Resistant Trimethoprim/Sulfa Susceptible Vancomycin Susceptible [1] Gentamicin is not appropriate for monotherapy for gram-positive infections. AFB culture [[id number]] Collected: 09/27/24 165 Lab Status: Preliminary result Specimen: Tissue from Thigh, Left Updated: 10/05/24 1201 Acid Fast Bacilli Culture No acid fast bacilli isolated at 1 week. Acid Fast Stain No acid fast bacilli seen Blood culture [[id number]] Collected: 09/29/242123 Lab Status: Final result Specimen: Blood, Venous Updated: 10/04/24 2301 Blood Culture No growth at 120 hours Blood culture [[id number]] Collected: 09/29/242123 Lab Status: Final result Specimen: Blood, Venous Updated: 10/04/24 2301 Blood Culture No growth at 120 hours AFB culture [[id number]] Collected: 09/26/24 1702 Lab Status: Preliminary result Specimen: Abscess from Knee, Left Updated: 10/04/24 1201 Acid Fast Bacilli Culture No acid fast bacilli isolated at 1 week. Acid Fast Stain No acid fast bacilli seen Blood culture [[id number]] Collected: 09/28/24 1749 Lab Status: Final result Specimen: Blood, Venous Updated: 10/03/24 1901 Blood Culture No growth at 120 hours Blood culture [[id number]] (Abnormal) Collected: 09/27/24 2133 Lab Status: Final result Specimen: Blood, Venous Updated: 10/02/24 0804 Blood Culture Methicillin Resistant Staphylococcus aureus Comment: Susceptibilities previously reported. Gram Stain Aerobic Bottle: Gram positive cocci in clusters Tissue Culture, Aerobic & Anaerobic [[id number]] Collected: 09/27/24 165 Lab Status: Final result Specimen: Tissue from Thigh, Left Updated: 10/01/24 1554 Narrative: The following orders were created for panel order Tissue Culture, Aerobic & Anaerobic. Procedure Abnormality Status --------- ------ Tissue Culture, Aerobic ...[[id number]] Anaerobic Culture[[id number]] Final result Please view results for these tests on the individual orders. Anaerobic Culture [[id number]] Collected: 09/27/24 165 Lab Status: Final result Specimen: Tissue from Thigh, Left Updated: 10/01/24 1554 Anaerobic Culture No anaerobic organisms isolated Tissue Culture, Aerobic Only [[id number]] (Abnormal) (Susceptibility) Collected: 09/27/24 165 Lab Status: [...] is considered susceptible to doxycycline. Blood culture [[id number]] (Abnormal) Collected: 09/26/24 1845 Lab Status: Final result Specimen: Blood, Venous Updated: 10/01/24 0658 Blood Culture Methicillin Resistant Staphylococcus aureus Comment: isolated. Susceptibilities previously reported. Gram Stain Aerobic Bottle: Gram positive cocci in clusters Abscess/Wound Aspirate Culture, Aerobic & Anaerobic [[id number]] (Abnormal) Collected: 09/26/241649 Lab Status: Final result Specimen: Abscess from Groin, Left Updated: 09/30/24 1551 Narrative: The following orders were created for panel order Abscess/Wound Aspirate Culture, Aerobic & Anaerobic. Procedure Abnormality Status --------- ------ Abscess/Wound Aspirate C...[[id number]] Abnormal Final result Anaerobic Culture[[id number]] Final result Please view results for these tests on the individual orders. Anaerobic Culture [[id number]] Collected: 09/26/24 165 Lab Status: Final result Specimen: Abscess from Groin, Left Updated: 09/30/24 1551 Anaerobic Culture No anaerobic organisms isolated Abscess/Wound Aspirate Culture, Aerobic & Anaerobic [[id number]] (Abnormal) Collected: 09/26/24 1702 Lab Status: Final result Specimen: Abscess from Knee, Left Updated: 09/30/24 1551 Narrative: The following orders were created for panel order Abscess/Wound Aspirate Culture, Aerobic & Anaerobic. Procedure Abnormality Status --------- ------ Abscess/Wound Aspirate C...[[id number]] Abnormal Final result Anaerobic Culture[[id number]] Final result Please view results for these tests on the individual orders. Anaerobic Culture [[id number]] Collected: 09/26/24 1702 Lab Status: Final result Specimen: Abscess from Knee, Left Updated: 09/30/24 1551 Anaerobic Culture No anaerobic organisms isolated Sonicated Tissue/Implant Culture [[id number]] (Abnormal) Collected: 09/26/24 1716 Lab Status: Final result Specimen: Vascular Graft from Leg, Left Updated: 09/30/24 1349 Sonicated Tissue/Implant Culture Methicillin Resistant Staphylococcus aureus Comment: isolated from broth culture. Susceptibilities previously reported. Abscess/Wound Aspirate Culture, Aerobic Only [[id number]] (Abnormal) (Susceptibility) Collected: 09/26/24 170 Lab Status: [...] to doxycycline. Abscess/Wound Aspirate Culture, Aerobic Only [[id number]] (Abnormal) (Susceptibility) Collected: 09/26/24 1650 Lab Status: [...] 2nd toe amputation who was transferred from [facility] given concern for infected left fem-BK popliteal PTFE bypass. He is now s/p an explantof an infected left femoral-below knee popliteal artery bypass graft (09/26), I/D groin abscess (), L GSV harvest, vein patch angioplasty, L CRUDE UNIT OPERATOR and BK pop w/ sartorius flap L [...] 81mg daily Vibha Benson APRN 10/07/2024 Pager: [phone] * Karina-Jessica Mcrae, PT - 10/06/2024 3:21 PM EST 10/06/24 0232 Evaluation & Treatment Document Type contact Comment, [...] 2nd toe amputation who was transferred from [facility] given concern for infected left fem-BK [...] smoking 1 week ago. He presented to [facility] on 09/26 and went to [...] Procedure Component Value - Date/Time AFB culture [[id number]] Collected: 09/27/241653 Lab Status: Preliminary result Specimen: Tissue from Thigh, Left Updated: 10/05/24 1201 Acid Fast Bacilli Culture No acid fast bacilli isolated at 1 week. Acid Fast Stain No acid fast bacilli seen Blood culture [[id number]] Collected: 09/29/242123 Lab Status: Final result Specimen: Blood, Venous Updated: 10/04/24 2301 Blood Culture No growth at 120 hours Blood culture [[id number]] Collected: 09/29/242123 Lab Status: Final result Specimen: Blood, Venous Updated: 10/04/24 2301 Blood Culture No growth at 120 hours AFB culture [[id number]] Collected: 09/26/24 170 Lab Status: Preliminary result Specimen: Abscess from Knee, Left Updated: 10/04/24 1201 Acid Fast Bacilli Culture No acid fast bacilli isolated at 1 week. Acid Fast Stain No acid fast bacilli seen Blood culture [[id number]] Collected: 09/28/24 1749 Lab Status: Final result Specimen: Blood, Venous Updated: 10/03/24 1901 Blood Culture No growth at 120 hours Blood culture [[id number]] (Abnormal) Collected: 09/27/242132 Lab Status: Final result Specimen: Blood, Venous Updated: 10/02/24 0804 Blood Culture Methicillin Resistant Staphylococcus aureus Comment: Susceptibilities previously reported. Gram Stain Aerobic Bottle: Gram positive cocci in clusters Tissue Culture, Aerobic & Anaerobic [[id number]] Collected: 09/27/241653 Lab Status: Final result Specimen: Tissue from Thigh, Left Updated: 10/01/24 1554 Narrative: The following orders were created for panel order Tissue Culture, Aerobic & Anaerobic. Procedure Abnormality Status --------- ------ Tissue Culture, Aerobic ...[[id number]] Anaerobic Culture[[id number]] Final result Please view results for these tests on the individual orders. Anaerobic Culture [[id number]]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 MUSCLE, LOWER EXTREMITY (WRVU 2.7) performed by Anabel Finney MD at [facility] MAIN OR PRO DEBRIDEMENT MUSCLE AND FASCIA 20 SQ CM/< Left 10/02/2024 DEBRIDEMENT SKIN, SUBCU, MUSCLE, LOWER EXTREMITY (WRVU 2.7) performed by Hermila Mccormick MDat [facility] MAIN OR PRO DEBRIDEMENT SUBCUTANEOUS TISSUE 20 SQCM/< Left 09/27/2024 DEBRIDEMENT SKIN AND SUBCU, LOWER EXTREMITY (WRVU 1.01) performed by Hayley Torres MD at [facility] MAIN OR PRO DRAIN LOWER LEG DEEP ABSC/HEMATOMA Left 09/26/2024 INCISION & DRAINAGE, LEG OR ANKLE, DEEP ABSCESS OR HEMATOMA (WRVU 5.23) performed by Hayley Torres MD at [facility] MAIN OR PRO ENDOSCOPY W/VIDEO-ASST VEIN HARVEST, CABG 01/04/2012 ENDOSCOPIC HARVEST VEIN(S) FOR CABG performed by INNA TOVAR at [facility] MAIN OR PRO EXCISION, INFEC GRAFT, EXTREMITY Left 09/26/2024 EXCISION OF INFECTED GRAFT FROM LOWER EXTREMITY (WRVU 9.53) performed by Hayley Torres MD at [facility] OR PRO EXCISION, INFEC GRAFT, EXTREMITY Left 09/28/2024 EXCISION OF INFECTED GRAFT FROM LOWER EXTREMITY (WRVU 9.53) performed by Hayley Torres MD at [facility] MAIN OR PRO EXPLORATION NOT FOLLOWED BY SURG LOWER EXTREMITY ARTERY Left 09/29/2024 @EXPLORATION W\O SURGICAL REPAIR, FEMORAL ARTERY - JENNIFER (WRVU 7.5) performed by Anabel Finney MD at [facility] MAIN OR PRO FORM SKIN PEDICLE FLAP SCALP, ARM, LEG 09/28/2024 FLAP, PEDICLE,W OR W/O TRANSFER, LEGS (WRVU 10.12) performed by Hayley Torres MD at [facility] MAIN OR PRO I&D DEEP ABSCESS BURSA/HEMATOMA THIGH/KNEE REGION Left 09/26/2024 INCISION & DRAINAGE ABSCESS OR HEMATOMA, THIGH, KNEE SUPERFICIAL (WRVU 6.78) performed by Hayley Torres MD at [facility] MAIN OR PRO REVISION FEMORAL ANAST BPG GROIN OPEN W/NONAUTOG PATCH GRAFT Left 09/28/2024 REV. FEM. ANASTOMOSIS OF SYN. BYPASS GRAFT USING NONAUTOGENOUS PATCH ANGIOPLASTY-JENNIFER (WRVU 23.15) performed by Hayley Torres MD at [facility] MAIN OR PRO UNLISTED PROCEDURE VASCULAR SURGERY Left 09/28/2024 HARVEST SAPHENOUS VEIN (WRVU 13.24) performed by Hayley Torres MD at [facility] MAIN OR VS ARTERIOGRAM LOWER EXTREMITY VASCULAR SURGERY 07/20/2024 VS Arteriogram Lower Extremity Vascular Surgery 07/20/2024 Anabel Finney MD [facility] INTERVENTIONL RAD Active Non-Hospital Problems Diagnosis [...] outlined in thisevaluation. Time IN / OUT: 3495-3443 Total Time: 28 minutes; Low EV and TEF JESSICA RENAE, PT Pager: [phone] Physical Therapy Inpatient Rehabilitation Department * Rose [...] 2nd toe amputation who was transferred from [facility] given concern for infected left fem-BK [...] smoking 1 week ago. 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) Objective: Temp: [36.4 ??C (97.5 ??F)-37.3 ??C [...] Procedure Component Value - Date/Time Blood culture [[id number]] Collected: 09/29/242123 Lab Status: Preliminary result Specimen: Blood, Venous Updated: 10/02/24 2300 Blood Culture No growth at 72 hours Blood culture [[id number]] Collected: 09/29/242123 Lab Status: Preliminary result Specimen: Blood, Venous Updated: 10/02/24 2300 Blood Culture No growth at 72 hours Blood culture [[id number]] Collected: 09/28/241748 Lab Status: Preliminary result Specimen: Blood, Venous Updated: 10/02/24 1901 Blood Culture No growth at 96 hours Blood culture [[id number]] (Abnormal) Collected: 09/27/242132 Lab Status: Final result Specimen: Blood, Venous Updated: 10/02/24 0804 Blood Culture Methicillin Resistant Staphylococcus aureus Comment: Susceptibilities previously reported. Gram Stain Aerobic Bottle: Gram positive cocci in clusters Tissue Culture, Aerobic & Anaerobic [[id number]] Collected: 09/27/241653 Lab Status: Final result Specimen: Tissue from Thigh, Left Updated: 10/01/24 155 Narrative: The following orders were created for panel order Tissue Culture, Aerobic & Anaerobic. Procedure Abnormality Status --------- ------ Tissue Culture, Aerobic ...[[id number]] Anaerobic Culture[[id number]] Final result Please view results for these tests on the individual orders. Anaerobic Culture [[id number]] Collected: 09/27/241653 Lab Status: Final result Specimen: Tissue from Thigh, Left Updated: 10/01/24 1554 Anaerobic Culture No anaerobic organisms isolated Tissue Culture, Aerobic Only [[id number]] (Abnormal) (Susceptibility) Collected: 09/27/241653 Lab Status: Final [...] is considered susceptible to doxycycline. Blood culture [[id number]] (Abnormal) (Susceptibility) Collected: 09/26/24 1422 Lab Status: Final result Specimen: Blood, Venous Updated: 10/01/24 0658 Blood Culture Methicillin Resistant Staphylococcus aureus Comment: detected by PCR Isolate saved. If future testing is required, contact the Microbiology [facility] [facility]. Gram Stain Aerobic Bottle: Gram positive cocci in clusters Susceptibility Methicillin Resistant Staphylococcus aureus VITEK 2 METHOD Clindamycin Resistant Gentamicin Susceptible [1] Linezolid Susceptible Oxacillin Resistant Trimethoprim/Sulfa Susceptible Vancomycin Susceptible [1] Gentamicin is not appropriate for monotherapy for gram-positive infections. Blood culture [[id number]] (Abnormal) Collected: 09/26/24 1845 Lab Status: Final result Specimen: Blood, Venous Updated: 10/01/24 0658 Blood Culture Methicillin Resistant Staphylococcus aureus Comment: isolated. Susceptibilities previously reported. Gram Stain Aerobic Bottle: Gram positive cocci in clusters Abscess/Wound Aspirate Culture, Aerobic & Anaerobic [[id number]] (Abnormal) Collected: 09/26/24 1650 Lab Status: Final result Specimen: Abscess from Groin, Left Updated: 09/30/24 1551 Narrative: The following orders were created for panel order Abscess/Wound Aspirate Culture, Aerobic & Anaerobic. Procedure Abnormality Status --------- ------ Abscess/Wound Aspirate C...[[id number]] Abnormal Final result Anaerobic Culture[[id number]] Final result Please view results for these tests on the individual orders. Anaerobic Culture [[id number]] Collected: 09/26/24 1650 Lab Status: Final result Specimen: Abscess from Groin, Left Updated: 09/30/24 1551 Anaerobic Culture No anaerobic organisms isolated Abscess/Wound Aspirate Culture, Aerobic & Anaerobic [[id number]] (Abnormal) Collected: 09/26/24 1702 Lab Status: Final result Specimen: Abscess from Knee, Left Updated: 09/30/24 1551 Narrative: The following orders were created for panel order Abscess/Wound Aspirate Culture, Aerobic & Anaerobic. Procedure Abnormality Status --------- ------ Abscess/Wound Aspirate C...[[id number]] Abnormal Final result Anaerobic Culture[[id number]] Final result Please view results for these tests on the individual orders. Anaerobic Culture [[id number]] Collected: 09/26/24 1702 Lab Status: Final result Specimen: Abscess from Knee, Left Updated: 09/30/24 1551 Anaerobic Culture No anaerobic organisms isolated Sonicated Tissue/Implant Culture [[id number]] (Abnormal) Collected: 09/26/24 1716 Lab Status: Final result Specimen: Vascular Graft from Leg, Left Updated: 09/30/24 1349 Sonicated Tissue/Implant Culture Methicillin Resistant Staphylococcus aureus Comment: isolated from broth culture. Susceptibilities previously reported. Abscess/Wound Aspirate Culture, Aerobic Only [[id number]] (Abnormal) (Susceptibility) Collected: 09/26/24 1702 Lab Status: [...] to doxycycline. Abscess/Wound Aspirate Culture, Aerobic Only [[id number]] (Abnormal) (Susceptibility) Collected: 09/26/24 1650 Lab Status: [...] is considered susceptible to doxycycline. AFB culture [[id number]] Collected: 09/27/241653 Lab Status: Preliminary result Specimen: Tissue from Thigh, Left Updated: 09/29/24 1201 Acid Fast Bacilli Culture No acid fast bacilli isolated to date. Acid Fast Stain No acid fast bacilli seen AFB culture [[id number]] Collected: 09/26/241701 Lab Status: Preliminary result Specimen: Abscess from Knee, Left Updated: 09/29/24 1201 Acid Fast Bacilli Culture No acid fast bacilli isolated to date. Acid Fast Stain No acid fast bacilli seen Fungus culture [[id number]] Collected: 09/27/241653 Lab Status: Preliminary result Specimen: Tissue from Thigh, Left Updated: 09/28/24 0748 Fungus Culture No fungus isolated to date MRSA PCR Screen [[id number]] (Abnormal) Collected: 09/27/24 0751 Lab Status: Final result Specimen: Swab from Nares Updated: 09/27/24 1156 MRSA PCR Detected Narrative: This test was performed using the Xpert MRSA NxG test kit and is run on the [employer] Dx System. This test is cleared by the U.S. Food and Drug Administration for clinical use and its performance characteristics have been verified by the [facility] at [facility]. Fungus culture [[id number]] Collected: 09/26/241649 Lab Status: Preliminary result Specimen: Abscess from Groin, Left Updated: 09/27/24 0727 Fungus Culture No fungus isolated to date Fungus culture [[id number]] Collected: 09/26/241701 Lab Status: Preliminary result Specimen: [...] 2nd toe amputation who was transferred from [facility] given concern for infected left fem-BK popliteal PTFE bypass. 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 10/03/24 NPO at [facility] for OR wound exploration. Wound vac [...] 81mg daily Rose Wright APRN 10/03/2024 Pager: [phone] * Padma Ramirez MD - 10/02/2024 7:42 [...] concerns. Joanie Silverio PT, DPT, GCS Pager: [phone] 10/02/24 Inpatient Rehabilitation Department * Hermila White [...] 2nd toe amputation who was transferred from [facility] given concern for infected left fem-BK [...] smoking 1 week ago. 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 Gram Stain Aerobic Bottle: Gram positive cocci in clusters Blood culture [[id number]] Collected: 09/29/242123 Lab Status: Preliminary result Specimen: Blood, Venous Updated: 10/01/24 2301 Blood Culture No growth at 48 hours Blood culture [[id number]] Collected: 09/29/242123 Lab Status: Preliminary result Specimen: Blood, Venous Updated: 10/01/24 2301 Blood Culture No growth at 48 hours Blood culture [[id number]] Collected: 09/28/24 1749 Lab Status: Preliminary result Specimen: Blood, Venous Updated: 10/01/24 1901 Blood Culture No growth at 72 hours Tissue Culture, Aerobic & Anaerobic [[id number]] Collected: 09/27/241653 Lab Status: Final result Specimen: Tissue from Thigh, Left Updated: 10/01/24 1554 Narrative: The following orders were created for panel order Tissue Culture, Aerobic & Anaerobic. Procedure Abnormality Status --------- ------ Tissue Culture, Aerobic ...[[id number]] Anaerobic Culture[[id number]] Final result Please view results for these tests on the individual orders. Anaerobic Culture [[id number]] Collected: 11/20/24 1654 Lab Status: Final result Specimen: Tissue from Thigh, Left Updated: 10/01/24 1554 Anaerobic Culture No anaerobic organisms isolated Tissue Culture, Aerobic Only [[id number]] (Abnormal) (Susceptibility) Collected: 09/27/24 1654 Lab Status: [...] is considered susceptible to doxycycline. Blood culture [[id number]] (Abnormal) (Susceptibility) Collected: 09/26/24 1422 Lab Status: Final result Specimen: Blood, Venous Updated: 10/01/24 0658 Blood Culture Methicillin Resistant Staphylococcus aureus Comment: detected by PCR Isolate saved. If future testing is required, contact the Microbiology [facility] [facility]. Gram Stain Aerobic Bottle: Gram positive cocci in clusters Susceptibility Methicillin Resistant Staphylococcus aureus VITEK 2 METHOD Clindamycin Resistant Gentamicin Susceptible [1] Linezolid Susceptible Oxacillin Resistant Trimethoprim/Sulfa Susceptible Vancomycin Susceptible [1] Gentamicin is not appropriate for monotherapy for gram-positive infections. Blood culture [[id number]] (Abnormal) Collected: 09/26/24 1845 Lab Status: Final result Specimen: Blood, Venous Updated: 10/01/24 0658 Blood Culture Methicillin Resistant Staphylococcus aureus Comment: isolated. Susceptibilities previously reported. Gram Stain Aerobic Bottle: Gram positive cocci in clusters Abscess/Wound Aspirate Culture, Aerobic & Anaerobic [[id number]] (Abnormal) Collected: 09/26/24 1650 Lab Status: Final result Specimen: Abscess from Groin, Left Updated: 09/30/24 1551 Narrative: The following orders were created for panel order Abscess/Wound Aspirate Culture, Aerobic & Anaerobic. Procedure Abnormality Status --------- ------ Abscess/Wound Aspirate C...[[id number]] Abnormal Final result Anaerobic Culture[[id number]] Final result Please view results for these tests on the individual orders. Anaerobic Culture [[id number]] Collected: 09/26/24 1650 Lab Status: Final result Specimen: Abscess from Groin, Left Updated: 09/30/24 1551 Anaerobic Culture No anaerobic organisms isolated Abscess/Wound Aspirate Culture, Aerobic & Anaerobic [[id number]] (Abnormal) Collected: 09/26/24 1702 Lab Status: Final result Specimen: Abscess from Knee, Left Updated: 09/30/24 1551 Narrative: The following orders were created for panel order Abscess/Wound Aspirate Culture, Aerobic & Anaerobic. Procedure Abnormality Status --------- ------ Abscess/Wound Aspirate C...[[id number]] Abnormal Final result Anaerobic Culture[[id number]] Final result Please view results for these tests on the individual orders. Anaerobic Culture [[id number]] Collected: 09/26/24 1702 Lab Status: Final result Specimen: Abscess from Knee, Left Updated: 09/30/24 1551 Anaerobic Culture No anaerobic organisms isolated Sonicated Tissue/Implant Culture [[id number]] (Abnormal) Collected: 09/26/24 1716 Lab Status: Final result Specimen: Vascular Graft from Leg, Left Updated: 09/30/24 1349 Sonicated Tissue/Implant Culture Methicillin Resistant Staphylococcus aureus Comment: isolated from broth culture. Susceptibilities previously reported. Abscess/Wound Aspirate Culture, Aerobic Only [[id number]] (Abnormal) (Susceptibility) Collected: 09/26/24 1702 Lab Status: [...] to doxycycline. Abscess/Wound Aspirate Culture, Aerobic Only [[id number]] (Abnormal) (Susceptibility) Collected: 09/26/24 1650 Lab Status: [...] is considered susceptible to doxycycline. AFB culture [[id number]] Collected: 09/27/241653 Lab Status: Preliminary result Specimen: Tissue from Thigh, Left Updated: 09/29/24 1201 Acid Fast Bacilli Culture No acid fast bacilli isolated to date. Acid Fast Stain No acid fast bacilli seen AFB culture [[id number]] Collected: 09/26/241701 Lab Status: Preliminary result Specimen: Abscess from Knee, Left Updated: 09/29/24 1201 Acid Fast Bacilli Culture No acid fast bacilli isolated to date. Acid Fast Stain No acid fast bacilli seen Fungus culture [[id number]] Collected: 09/27/241653 Lab Status: Preliminary result Specimen: Tissue from Thigh, Left Updated: 09/28/24 0748 Fungus Culture No fungus isolated to date MRSA PCR Screen [[id number]] (Abnormal) Collected: 09/27/24 0751 Lab Status: Final result Specimen: Swab from Nares Updated: 09/27/24 1156 MRSA PCR Detected Narrative: This test was performed using the Xpert MRSA NxG test kit and is run on the [employer] Gene[employer]pert Dx System. This test is cleared by the U.S. Food and Drug Administration for clinical use and its performance characteristics have been verified by the [facility] at [facility]. Fungus culture [[id number]] Collected: 09/26/241649 Lab Status: Preliminary result Specimen: Abscess from Groin, Left Updated: 09/27/24 0727 Fungus Culture No fungus isolated to date Fungus culture [[id number]] Collected: 09/26/241701 Lab Status: Preliminary result Specimen: [...] 2nd toe amputation who was transferred from [facility] given concern for infected left fem-BK popliteal PTFE bypass. 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 Vascular Surgery Progress Note Geovanna Dixon Jr. is a 49 y.o. 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 If future testing is required, contact the Microbiology [facility] [facility]. Gram Stain Aerobic Bottle: Gram positive cocci in clusters Susceptibility Methicillin Resistant Staphylococcus aureus VITEK 2 METHOD Clindamycin Resistant Gentamicin Susceptible [1] Linezolid Susceptible Oxacillin Resistant Trimethoprim/Sulfa Susceptible Vancomycin Susceptible [1] Gentamicin is not appropriate for monotherapy for gram-positive infections. Blood culture [[id number]] (Abnormal) Collected: 09/26/24 1845 Lab Status: Final result Specimen: Blood, Venous Updated: 10/01/24 0658 Blood Culture Methicillin Resistant Staphylococcus aureus Comment: isolated. Susceptibilities previously reported. Gram Stain Aerobic Bottle: Gram positive cocci in clusters Blood culture [[id number]] Collected: 09/29/24 2124 Lab Status: Preliminary result Specimen: Blood, Venous Updated: 09/30/24 2301 Blood Culture No Growth at 18-24 hrs. Blood culture [[id number]] Collected: 09/29/24 2124 Lab Status: Preliminary result Specimen: Blood, Venous Updated: 09/30/24 2301 Blood Culture No Growth at 18-24 hrs. Blood culture [[id number]] Collected: 09/28/24 1749 Lab Status: Preliminary result Specimen: Blood, Venous Updated: 09/30/24 1901 Blood Culture No growth at 48 hours Abscess/Wound Aspirate Culture, Aerobic & Anaerobic [[id number]] (Abnormal) Collected: 09/26/24 165 Lab Status: Final result Specimen: Abscess from Groin, Left Updated: 09/30/24 1551 Narrative: The following orders were created for panel order Abscess/Wound Aspirate Culture, Aerobic & Anaerobic. Procedure Abnormality Status --------- ------ Abscess/Wound Aspirate C...[[id number]] Abnormal Final result Anaerobic Culture[[id number]] Final result Please view results for these tests on the individual orders. Anaerobic Culture [[id number]] Collected: 09/26/241649 Lab Status: Final result Specimen: Abscess from Groin, Left Updated: 09/30/24 1551 Anaerobic Culture No anaerobic organisms isolated Abscess/Wound Aspirate Culture, Aerobic & Anaerobic [[id number]] (Abnormal) Collected: 09/26/24 170 Lab Status: Final result Specimen: Abscess from Knee, Left Updated: 09/30/24 1551 Narrative: The following orders were created for panel order Abscess/Wound Aspirate Culture, Aerobic & Anaerobic. Procedure Abnormality Status --------- ------ Abscess/Wound Aspirate C...[[id number]] Abnormal Final result Anaerobic Culture[[id number]] Final result Please view results for these tests on the individual orders. Anaerobic Culture [[id number]] Collected: 09/26/24 170 Lab Status: Final result Specimen: Abscess from Knee, Left Updated: 09/30/24 1551 Anaerobic Culture No anaerobic organisms isolated Sonicated Tissue/Implant Culture [[id number]] (Abnormal) Collected: 09/26/24 1716 Lab Status: Final result Specimen: Vascular Graft from Leg, Left Updated: 09/30/24 1349 Sonicated Tissue/Implant Culture Methicillin Resistant Staphylococcus aureus Comment: isolated from broth culture. Susceptibilities previously reported. Abscess/Wound Aspirate Culture, Aerobic Only [[id number]] (Abnormal) (Susceptibility) Collected: 09/26/24 1702 Lab Status: [...] to doxycycline. Abscess/Wound Aspirate Culture, Aerobic Only [[id number]] (Abnormal) (Susceptibility) Collected: 09/26/24 1650 Lab Status: [...] is considered susceptible to doxycycline. Blood culture [[id number]] (Abnormal) Collected: 09/27/24 2133 Lab Status: Preliminary result Specimen: Blood, Venous Updated: 09/30/24 0718 Blood Culture Methicillin Resistant Staphylococcus aureus Comment: Susceptibilities previously reported. Gram Stain Aerobic Bottle: Gram positive cocci in clusters AFB culture [[id number]] Collected: 09/27/24 1654 Lab Status: Preliminary result Specimen: Tissue from Thigh, Left Updated: 09/29/24 1201 Acid Fast Bacilli Culture No acid fast bacilli isolated to date. Acid Fast Stain No acid fast bacilli seen AFB culture [[id number]] Collected: 09/26/24 1702 Lab Status: Preliminary result Specimen: Abscess from Knee, Left Updated: 09/29/24 1201 Acid Fast Bacilli Culture No acid fast bacilli isolated to date. Acid Fast Stain No acid fast bacilli seen Tissue Culture, Aerobic Only [[id number]] (Abnormal) (Susceptibility) Collected: 09/27/241653 Lab Status: Preliminary [...] is considered susceptible to doxycycline. Anaerobic Culture [[id number]] Collected: 09/27/241653 Lab Status: Preliminary result Specimen: Tissue from Thigh, Left Updated: 09/28/24 1355 Anaerobic Culture No anaerobic organisms isolated to date Fungus culture [[id number]] Collected: 09/27/241653 Lab Status: Preliminary result Specimen: Tissue from Thigh, Left Updated: 09/28/24 0748 Fungus Culture No fungus isolated to date MRSA PCR Screen [[id number]] (Abnormal) Collected: 09/27/24 0751 Lab Status: Final result Specimen: Swab from Nares Updated: 09/27/24 1156 MRSA PCR Detected Narrative: This test was performed using the Xpert MRSA NxG test kit and is run on the [employer] Dx System. This test is cleared by the U.S. Food and Drug Administration for clinical use and its performance characteristics have been verified by the Clinical Genomics and [facility] Laboratory at [facility]. Fungus culture [[id number]] Collected: 09/26/241649 Lab Status: Preliminary result Specimen: Abscess from Groin, Left Updated: 09/27/24 0727 Fungus Culture No fungus isolated to date Fungus culture [[id number]] Collected: 09/26/24 1702 Lab Status: Preliminary result [...] 2nd toe amputation who was transferred from [facility] given concern for infected left fem-BK popliteal PTFE bypass. 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 10/01/24: Tolerated gentle irrigation with saline at BSD today with clear to mildly serosang drainage - no purulence or malodor noted and patient tolerated well. Will plan for NPO at [facility] for return Sylwia tomorrow. Hypertensive overnight, home [...] - ISS - diet today; NPO at [facility] for OR Tuesday 10/02 Anticoagulation: SQH TID Antiplatelet: ASA 81 María Carranza, DIGITAL PRODUCTION MANAGER 10/01/2024 Pager: [phone] * Karolyn Hudson MD - 09/30/2024 11:21 AM EST Images from the original note were not included. Vascular Surgery Progress Note Patient ID Geovanna Dixon Jr. is a 49 y.o. 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 He presented to [facility] on 09/26 and went to [...] Procedure Component Value - Date/Time Blood culture [[id number]] (Abnormal) Collected: 09/27/24 2133 Lab Status: Preliminary result Specimen: Blood, Venous Updated: 09/30/24 0718 Blood Culture Methicillin Resistant Staphylococcus aureus Comment: Susceptibilities previously reported. Gram Stain Aerobic Bottle: Gram positive cocci in clusters Blood culture [[id number]] Collected: 09/28/24 1749 Lab Status: Preliminary result Specimen: Blood, Venous Updated: 09/29/24 1901 Blood Culture No Growth at 18-24 hrs. AFB culture [[id number]] Collected: 09/27/24 1654 Lab Status: Preliminary result Specimen: Tissue from Thigh, Left Updated: 09/29/24 1201 Acid Fast Bacilli Culture No acid fast bacilli isolated to date. Acid Fast Stain No acid fast bacilli seen AFB culture [[id number]] Collected: 09/26/24 1702 Lab Status: Preliminary result Specimen: Abscess from Knee, Left Updated: 09/29/24 1201 Acid Fast Bacilli Culture No acid fast bacilli isolated to date. Acid Fast Stain No acid fast bacilli seen Sonicated Tissue/Implant Culture [[id number]] (Abnormal) Collected: 09/26/24 1716 Lab Status: Preliminary result Specimen: Vascular Graft from Leg, Left Updated: 09/29/24 1132 Sonicated Tissue/Implant Culture Methicillin Resistant Staphylococcus aureus Comment: isolated from broth culture. Susceptibilities previously reported. Tissue Culture, Aerobic Only [[id number]] (Abnormal) (Susceptibility) Collected: 09/27/24 1654 Lab Status: [...] is considered susceptible to doxycycline. Blood culture [[id number]] (Abnormal) Collected: 09/26/24 1845 Lab Status: Preliminary result Specimen: Blood, Venous Updated: 09/29/24 0719 Blood Culture Methicillin Resistant Staphylococcus aureus Comment: isolated. Susceptibilities previously reported. Gram Stain Aerobic Bottle: Gram positive cocci in clusters Blood culture [[id number]] (Abnormal) (Susceptibility) Collected: 09/26/24 1422 Lab Status: Preliminary result Specimen: Blood, Venous Updated: 09/29/24 0717 Blood Culture Methicillin Resistant Staphylococcus aureus Comment: detected by PCR Isolate saved. If future testing is required, contact the Microbiology Pourer [employer]. Gram Stain Aerobic Bottle: Gram positive cocci in clusters Susceptibility Methicillin Resistant Staphylococcus aureus VITEK 2 METHOD Clindamycin Resistant Gentamicin Susceptible [1] Linezolid Susceptible Oxacillin Resistant Trimethoprim/Sulfa Susceptible Vancomycin Susceptible [1] Gentamicin is not appropriate for monotherapy for gram-positive infections. Anaerobic Culture [[id number]] Collected: 09/27/24 1654 Lab Status: Preliminary result Specimen: Tissue from Thigh, Left Updated: 09/28/24 1355 Anaerobic Culture No anaerobic organisms isolated to date Abscess/Wound Aspirate Culture, Aerobic Only [[id number]] (Abnormal) (Susceptibility) Collected: 09/26/24 1702 Lab Status: [...] to doxycycline. Abscess/Wound Aspirate Culture, Aerobic Only [[id number]] (Abnormal) (Susceptibility) Collected: 09/26/241649 Lab Status: Preliminary [...] is considered susceptible to doxycycline. Fungus culture [[id number]] Collected: 09/27/241653 Lab Status: Preliminary result Specimen: Tissue from Thigh, Left Updated: 09/28/24 0748 Fungus Culture No fungus isolated to date MRSA PCR Screen [[id number]] (Abnormal) Collected: 09/27/24 0751 Lab Status: Final result Specimen: Swab from Nares Updated: 09/27/24 1156 MRSA PCR Detected Narrative: This test was performed using the Xpert MRSA NxG test kit and is run on the [employer] Gene[employer]pert Dx System. This test is cleared by the U.S. Food and Drug Administration for clinical use and its performance characteristics have been verified by the Clinical Genomics and [facility] Laboratory at [facility]. Anaerobic Culture [[id number]] Collected: 09/26/241649 Lab Status: Preliminary result Specimen: Abscess from Groin, Left Updated: 09/27/24 1142 Anaerobic Culture No anaerobic organisms isolated to date Anaerobic Culture [[id number]] Collected: 09/26/24 1702 Lab Status: Preliminary result Specimen: Abscess from Knee, Left Updated: 09/27/24 1142 Anaerobic Culture No anaerobic organisms isolated to date Fungus culture [[id number]] Collected: 09/26/241649 Lab Status: Preliminary result Specimen: Abscess from Groin, Left Updated: 09/27/24 0727 Fungus Culture No fungus isolated to date Fungus culture [[id number]] Collected: 09/26/24 1702 Lab Status: Preliminary result Specimen: Abscess from Knee, Left Updated: 09/27/24726 Fungus Culture No fungus isolated to date New Studies Results for orders placed or performed during the hospital encounter of 09/26/24 Request For 2nd Read CT Lower Extremity (Exam End: 09/26/2024 1:50 PM) Result Value WORKSTATION ID [id number] Impression 1. There is a left femoral [...] have questions please contact the health care aid that requested your imaging first. Electronically signed by: Lisette Bruno MD, [facility] ([phone]), at 09/26/2024 3:[address] Lower Extremity w Contrast Left (Exam End: 09/27/2024 9:16 AM) Result Value WORKSTATION ID [id number] Impression IMPRESSION: 1. Interval explant of LEFT [...] have questions please contact the health care aid that requested your imaging first. Electronically signed by: Ignacia Chi MD, [facility] ([phone]), at 09/27/2024 10:48 AM 09/28 ABIs Interpretation: [...] 2nd toe amputation who was transferred from [facility] given concern for infected left fem-BK [...] at proximal and distal anastomoses and a Wilmette drain placed from left groin to left thigh. The retained grafts have since been removed, with Wilmette drains in the L groin and thigh [...] Labs 09/28/24 1516 PHART 7.42 PO2ART 103 [id number] 39 LACTATEART 1.1 BEART 0.2 Is this [...] 1643 PHART 7.42 7.38 PO2ART 103 96 [id number] 39 41 LACTATEART 1.1 1.7 BEART 0.2 [...] Thank you, Renea Nunez, MS, RD, LD, [facility] Clinical Nutrition * Mariya Shi RN [...] Diet CC Monitoring: Q4 Fawn Cunningham APRN [facility] Endocrinology Diabetes Management Pager [phone] Weekends please page [phone] minutes were spent over the course [...] Labs 09/26/24 1643 PHART 7.38 PO2ART 96 [id number] 41 LACTATEART 1.7 BEART -1.4 Is this [...] 2nd toe amputation who was transferred from [facility] given concern for infected left fem-BK [...] smoking 1 week ago. He presented to [facility] on 09/26 and went to [...] Procedure Component Value - Date/Time Fungus culture [[id number]] Collected: 09/27/24 1654 Lab Status: Preliminary result Specimen: Tissue from Thigh, Left Updated: 09/28/24 0748 Fungus Culture No fungus isolated to date Blood culture [[id number]] (Abnormal) Collected: 09/26/24 1845 Lab Status: Preliminary result Specimen: Blood, Venous Updated: 09/28/24 0711 Blood Culture Methicillin Resistant Staphylococcus aureus Comment: isolated. Susceptibility testing in progress. Gram Stain Aerobic Bottle: Gram positive cocci in clusters AFB culture [[id number]] Collected: 09/26/24 1702 Lab Status: Preliminary result Specimen: Abscess from Knee, Left Updated: 09/27/24 2335 Acid Fast Stain No acid fast bacilli seen Tissue Culture, Aerobic Only [[id number]] Collected: 09/27/24 1654 Lab Status: Preliminary result Specimen: Tissue from Thigh, Left Updated: 09/27/24 1810 Gram Stain Few Neutrophils seen No microorganisms seen Abscess/Wound Aspirate Culture, Aerobic Only [[id number]] (Abnormal) Collected: 09/26/24 170 Lab Status: Preliminary result Specimen: Abscess from Knee, Left Updated: 09/27/24 1520 Abscess/Wound Aspirate Culture Many Staphylococcus aureus Gram Stain Many neutrophils Many Gram positive cocci Abscess/Wound Aspirate Culture, Aerobic Only [[id number]] (Abnormal) Collected: 09/26/24 165 Lab Status: Preliminary result Specimen: Abscess from Groin, Left Updated: 09/27/24 1519 Abscess/Wound Aspirate Culture Many Staphylococcus aureus Gram Stain Many neutrophils Many Gram positive cocci Blood culture [[id number]] (Abnormal) Collected: 09/26/24 1422 Lab Status: Preliminary result Specimen: Blood, Venous Updated: 09/27/24 1320 Blood Culture Methicillin Resistant Staphylococcus aureus Comment: detected by PCR Gram Stain Aerobic Bottle: Gram positive cocci in clusters MRSA PCR Screen [[id number]] (Abnormal) Collected: 09/27/24 0751 Lab Status: Final result Specimen: Swab from Nares Updated: 09/27/24 1156 MRSA PCR Detected Narrative: This test was performed using the Xpert MRSA NxG test kit and is run on the [employer] Dx System. This test is cleared by the U.S. Food and Drug Administration for clinical use and its performance characteristics have been verified by the Clinical Genomics and [facility] at [facility]. Anaerobic Culture [[id number]] Collected: 09/26/24 1650 Lab Status: Preliminary result Specimen: Abscess from Groin, Left Updated: 09/27/24 1142 Anaerobic Culture No anaerobic organisms isolated to date Anaerobic Culture [[id number]] Collected: 09/26/24 1702 Lab Status: Preliminary result Specimen: Abscess from Knee, Left Updated: 09/27/24 1142 Anaerobic Culture No anaerobic organisms isolated to date Fungus culture [[id number]] Collected: 09/26/24 1650 Lab Status: Preliminary result Specimen: Abscess from Groin, Left Updated: 09/27/24726 Fungus Culture No fungus isolated to date Fungus culture [[id number]] Collected: 09/26/24 1702 Lab Status: Preliminary result Specimen: Abscess from Knee, Left Updated: 09/27/24726 Fungus Culture No fungus isolated to date New Studies Results for orders placed or performed during the hospital encounter of 09/26/24 Request For 2nd Read CT Lower Extremity (Exam End: 09/26/2024 1:50 PM) Result Value WORKSTATION ID [id number] Impression 1. There is a left femoral [...] have questions please contact the health care aid that requested your imaging first. Electronically signed by: Lisette Bruno MD, [facility] ([phone]), at 09/26/2024 3:[address] Lower Extremity w Contrast Left (Exam End: 09/27/2024 9:16 AM) Result Value WORKSTATION ID [id number] Impression IMPRESSION: 1. Interval explant of LEFT [...] have questions please contact the health care aid that requested your imaging first. Electronically signed by: Ignacia Chi MD, [facility] ([phone]), at 09/27/2024 10:48 AM Assessment & Plan Geovanna Dixon Jr. is a 49 y.o. male with a history of HTN, HLD, NSTEMI, CAD s/p CABG (12/2011), DM,obesity, PAD s/p L iliofem endart and L fem-BK pop bypass and L 2nd toe amputation who was transferred from [facility] given concern for infected left fem-BK [...] NPO at midnight pending OR tomorrow - Mednez to remain in place - UOP adequate - Anticoagulation: subq heparin - Antiplatelet: ASA 81 Padma Ramirez MD Vascular Surgery 09/27/24 * Kita Hodge - 09/27/2024 3:58 PM EST Harnessmaker Apprentice Encounter Note Patient Name: Geovanna Dixon Jr. : [id number] MR#: [id number] Admit Date: 09/26/2024 2:08 PM Hospital Day 1 day Narrative: Supervisor Sintering Plant initiated visit with patient during rounds on the unit. Patient indicated that he was not sikhism. He reported that he was in less [...] Labs 09/26/24 1643 PHART 7.38 PO2ART 96 [id number] 41 LACTATEART 1.7 BEART -1.4 Is this [...] 2nd toe amputation who was transferred from [facility] given concern for infected left fem-BK [...] smoking 1 week ago. He presented to [facility] on 09/26 and went to [...] 2nd toe amputation who was transferred from [facility] given concern for infected left fem-BK popliteal PTFE bypass. He is now s/p an explantof an infected left femoral-below knee popliteal artery bypass graft. Significant purulence under pr essure was seen intraoperatively, surrounding the entire bypass at proximal and distal anastomoses as well as the tunnel. There are retained grafts left at proximal and distal anastomoses, and a Wilmette drain placed from left groin to left [...] graft associated infection. The patient presented to [facility] ED on 09/26 for evaluation of [...] remained hemodynamically stable during his time at [facility] and was transported by ground to [facility] for vascular surgery consultation. Patient [...] 3.51) performed by Thony Garcia MD at [facility] MAIN OR PRO BYPASS GRAFT OTHR, FEM-TIBIAL Left 08/01/2024 @BYPASS GRAFT, FEM-ANT TIBIAL, -POST TIBIAL, -PERONEAL, -DP W\ SYNTHETIC CONDUIT (WRVU 23.66) performed by Lisette Maldonado MD at [facility] MAIN OR PRO CABG, ARTERY-VEIN, SINGLE 01/04/2012 @CABG, VENOUS & ARTERIAL GRAFT;SINGLE VEIN GRAFT performed by INNA TOVAR at [facility] MAIN OR PRO ENDOSCOPY W/VIDEO-ASST VEIN HARVEST, CABG 01/04/2012 ENDOSCOPIC HARVEST VEIN(S) FOR CABG performed by INNA TOVAR at [facility] MAIN OR VS ARTERIOGRAM LOWER EXTREMITY VASCULAR SURGERY 07/20/2024 VS Arteriogram Lower Extremity Vascular Surgery 07/20/2024 Anabel Finney MD [facility] INTERVENTIONL RAD Prior To Admission Medications: [...] 3 times daily. Use as instructed Indications: [id number] each 1 Past Week FreeStyle Lancets 28 [...] 200 - 393 mg/dL Type and screen ([facility]) Result Value Ref Range ABORH Type A POSITIVE PATIENT HISTORY Found Expires at 2359 on: 09/29/2024 ANTIBODY SCREEN AUTOMATED Negative T&S only valid at [facility] LAB CBC (with Diff) Result [...] 09/26/2024 1:50 PM) Result Value WORKSTATION ID [id number] Impression 1. There is a left femoral [...] have questions please contact the health care aid that requested your imaging first. Electronically signed by: Lisette Bruno MD, [facility] ([phone]), at 09/26/2024 3:01 PM Assessment/Plan: Geovanna Dixon [...] to the planned procedure. Hand Hygiene: The cartridge feeder did perform hand hygiene prior to line insertion. Catheter type: PICC Lot number: [id number] Procedure Technique: Skin was prepped with chlorhexidine. [...] to the planned procedure. Hand Hygiene: The cartridge feeder did perform hand hygiene prior to line insertion. Catheter type: PICC Lot number: [id number] Procedure Technique: Skin was prepped with chlorhexidine. [...] tomorrow afternoon. Home Vac: I have called [facility] Inventory and they they have now delivered the home ActiVac serial # [id number]. Pt reviewed the [facility] ActiVac Proof of Delivery/Assignment of Benefits (POD/AOB)form and signed it; she has copy of this and the [facility] Patient Copy letter along with the supplies, I will fax copy of the POD/AOB to [facility]. Needs for Transition of Care: Plan for discharge is: Home w/ Services Outpatient Agency/Support Group Needs: Homecare agency Outpatient IV Medications - IV Access: Access Ordered Location: Home, Referred to [facility] Coordination, Referred to [facility] Services: Occupational Therapy, Physical Therapy, Registered Nurse Agency Referrals & Follow-up Care: [facility] [address] [place] [address] Transportation: family or friend will provide Functional status prior to admission: Independent Home Environment: Others in the home: sibling(s), other (see comments) (lives with his sister delmy and brother in law). Current Living Arrangements: home/apartment/condo. Accessibility Concerns: . Current Functional Ability: Assistive Person and Equipment DME used at home: none Other DME Needs: Wound Vac Provider: [facility] Patient is insured through: Primary Insurance: [employer] MANAGED MEDICARE Payor: [employer] MANAGED MEDICARE / Plan: [employer] MANAGED MEDICARE [...] Pain Flowsheets Taken 10/09/20242022 Pain Management Interventions: mxkugl-ytv-sxcxl dosing utilized care clustered diversional activity provided [...] from the original [place] [address] [facility] Vascular Access Service Peripherally Inserted Central Catheter (PICC) Teaching Sheet Peripherally inserted central catheters (hrgi-id-dbqy) (PICC) are used when you need IV [...] midline catheter? PICC lines are used for director long term care treatments. PICC lines may be used [...] can be set up via the nurse Research Software Engineer to help you. What are possible [...] Efficacy, Safety, Use, and Administration of Cathflo, [employer] 2005 * Care Management - Cristina [...] MEDICARE Payor: [employer] MANAGED MEDICARE / Plan: [employer] MANAGED MEDICARE PPO / Product Type: *No [...] Ordered Location: Home, Referred to [facility] Coordination Home Health Services: Occupational Therapy, Physical Therapy, Registered Nurse- will remove PT, OT Agency Referrals: [facility] and [facility] for IV [...] 9:00 AM EST OFFICE OF CARE MANAGEMENT Research Software Engineer Follow-up Note Cristina Turner RN reviewed [...] medically ready. Current Referral in place: VNA: [facility] Wound vac ordered in [employer] System for home wound vac and order emailed to: María for signature. Research Software Engineer to follow with team and family [...] where referrals are placed. Request referral to [place], [place] for IV abx or . Expected date of discharge: 10/11. Patient will require teaching. Referral routed to the Certified Paralegal for matching with agency/vendor and to provide [...] care clustered diversional activity provided position adjusted kwoxhz-ucu-goflx dosing utilized pain management plan reviewed with [...] have. Alternately, during off-hours you may call [phone] to contact a pharmacist. * Plan of Care - Jordyn Navas RN - 10/07/2024 7:21 PM EST OUTCOME EVALUATION NOTE: OUTCOME SUMMARY: [facility], Meds/Assessments as charted, Frequent [...] PM EST PICC line placed today for director long term care ABX. Neurovascular checks unchanged. Good oral [...] from the original [place] [address] [facility] Vascular Access Service Peripherally Inserted Central Catheter (PICC) Teaching Sheet Peripherally inserted central catheters (jrmz-na-xguc) (PICC) are used when you need IV [...] midline catheter? PICC lines are used for director long term care treatments. PICC lines may be used [...] can be set up via the nurse Research Software Engineer to help you. What are possible [...] Vascular Access Device Selection, Insertion, and Management, [employer] Systems 08/12. A Review of the Efficacy, Safety, Use, and Administration of Cathflo, [employer] 2005 * Care Management - [...] through: Primary Insurance: [employer] MANAGED MEDICARE Payor: [employer] MEDICARE / Plan: [employer] MANAGED MEDICARE PPO / Product Type: *No [...] of Discharge: 10/10/2024 Vibha Wahl RN-BSN-CM Pager: [phone] * Consult Note - Stormy Muller, [facility] - 10/06/2024 9:19 AM EST [facility] Pharmacokinetics Note Drug: Vancomycin Pharmacokinetic target: [...] Analysis of the most recent level(s) using [employer] gives the following patient-specific pharmacokinetic parameters: CL: [...] in a steady-state trough of 14.6 mg/L [id number] of 508 mg/L.hr. Recommendations: - SCr has [...] Meeks MD - 10/04/2024 5:01 PM EST [facility] Operative Note Patient Name: Geovanna Dixon Jr. : [id number] MR#: [id number] Case Date: 10/04/2024 Surgeon: Surgeons and Role: * Marko Dickson MD - Primary * Cristino Meeks MD - Resident - Assisting Preoperative diagnosis: Status post explant of infected left CRUDE UNIT OPERATOR-BK pop bypass graft Postoperative diagnosis: Status post explant of infected left CRUDE UNIT OPERATOR-BK pop bypass graft Procedure(s) (LRB): DEBRIDEMENT SKIN [...] 2nd toe amputation who was transferred from [facility] given concern for infected left fem-BK popliteal PTFE bypass. He is now s/p an explant of an infected left femoral-below knee popliteal artery bypass graft on 09/26 followed by I/D posterior thigh abscess on 09/27 then left GSV harvest, total explant of remaining PTFE then vein patch angioplasty of the left CRUDE UNIT OPERATOR and BK popliteal artery on 09/28 then [...] Note Patient Name: Geovanna Dixon Jr. : [id number] MR#: [id number] Case Date: 10/04/2024 Surgeon: Surgeons and Role: * Marko Dickson MD - Primary * Cristino Meeks MD - Resident - Assisting Preoperative diagnosis: Status post explant of infected left CRUDE UNIT OPERATOR-BK pop bypass graft Postoperative diagnosis: Status post explant of infected left CRUDE UNIT OPERATOR-BK pop bypass graft Procedure(s) (LRB): DEBRIDEMENT SKIN [...] No Patient is insured through: Primary Insurance: [employer] MEDICARE Payor: [employer] MEDICARE / Plan: [employer] MANAGED MEDICARE PPO / Product Type: *No Product type* / Secondary Insurance: N/A Last Physical Therapy Recommendation: home with supervision (and support from family, prn) with None (10/03/24 1101) Last Occupational Therapy Recommendation: home (w/ family) with None (10/03/24 7415) Plan for discharge is: Pending Hospital Course [...] BIT to reengage please page BIT @ [phone] * Consult Note - Vangie Chandra [facility] - 10/04/2024 10:42 AM EST [facility] Pharmacokinetics Note Drug: Vancomycin Pharmacokinetic target: AUC24 (range) 400-600 mg/L.hr Current regimen: 1500 mg IV every 8 hours Geovanna Dixon is a(n) 49 years old male receiving Vancomycin 1500 mg IV every 8 hours for graft infection Recent measured serum creatinine values: 10/04/2024 00:08 0.56 mg/dL 10/03/2024 00:27 0.51 mg/dL 10/02/2024 00:41 0.49 mg/dL Assessment: Analysis of the most recent level(s) using DiBcom gives the following patient-specific pharmacokinetic parameters: CL: [...] L 2nd toe amputationwho was transferred from [facility] given concern for infected left fem-BK popliteal PTFE bypass. He is now s/p an explant of an infected left femoral-below knee popliteal artery bypass graft (09/26), I/D groin abscess (09/27), L GSV harvest, vein patch angioplasty, L CRUDE UNIT OPERATOR and BK pop w/ sartorius flap L fem, I/D, 09/29 L sartorius flap revision, vac change. 10/03/24 NPO at [facility] for OR wound exploration. Wound vac [...] 3.51) performed by Thony Garcia MD at [facility] MAIN OR PRO BYPASS GRAFT OTHR, FEM-TIBIAL Left 08/01/2024 @BYPASS GRAFT, FEM-ANT TIBIAL, -POST TIBIAL, -PERONEAL, -DP W\ SYNTHETIC CONDUIT (WRVU 23.66) performed by Lisette Maldonado MD at [facility] MAIN OR PRO CABG, ARTERY-VEIN, SINGLE 01/04/2012 @CABG, VENOUS & ARTERIAL GRAFT;SINGLE VEIN GRAFT performed by INNA TOVAR at [facility] MAIN OR PRO DEBRIDEMENT MUSCLE AND FASCIA 20 SQ CM/< Left 09/29/2024 DEBRIDEMENT SKIN, SUBCU, MUSCLE, LOWER EXTREMITY (WRVU 2.7) performed by Anabel Finney MD at [facility] MAIN OR PRO DEBRIDEMENT MUSCLE AND FASCIA 20 SQ CM/< Left 10/02/2024 DEBRIDEMENT SKIN, SUBCU, MUSCLE, LOWER EXTREMITY (WRVU 2.7) performed by Hermila Mccormick MDat [facility] MAIN OR PRO DEBRIDEMENT SUBCUTANEOUS TISSUE 20 SQCM/< Left 09/27/2024 DEBRIDEMENT SKIN AND SUBCU, LOWER EXTREMITY (WRVU 1.01) performed by Hayley Torres MD at [facility] MAIN OR PRO DRAIN LOWER LEG DEEP ABSC/HEMATOMA Left 09/26/2024 INCISION & DRAINAGE, LEG OR ANKLE, DEEP ABSCESS OR HEMATOMA (WRVU 5.23) performed by Hayley Torres MD at [facility] MAIN OR PRO ENDOSCOPY W/VIDEO-ASST VEIN HARVEST, CABG 01/04/2012 ENDOSCOPIC HARVEST VEIN(S) FOR CABG performed by INNA TOVAR at [facility] MAIN OR PRO EXCISION, INFEC GRAFT, EXTREMITY Left 09/26/2024 EXCISION OF INFECTED GRAFT FROM LOWER EXTREMITY (WRVU 9.53) performed by Hayley Torres MD at [facility] MAIN OR PRO EXCISION, INFEC GRAFT, EXTREMITY Left 09/28/2024 EXCISION OF INFECTED GRAFT FROM LOWER EXTREMITY (WRVU 9.53) performed by Hayley Torres MD at [facility] MAIN OR PRO EXPLORATION NOT FOLLOWED BY SURG LOWER EXTREMITY ARTERY Left 09/29/2024 @EXPLORATION W\O SURGICAL REPAIR, FEMORAL ARTERY - JENNIFER (WRVU 7.5) performed by Anabel Finney MD at [facility] MAIN OR PRO FORM SKIN PEDICLE FLAP SCALP, ARM, LEG 09/28/2024 FLAP, PEDICLE,W OR W/O TRANSFER, LEGS (WRVU 10.12) performed by Hayley Torres MD at [facility] MAIN OR PRO I&D DEEP ABSCESS BURSA/HEMATOMA THIGH/KNEE REGION Left 09/26/2024 INCISION & DRAINAGE ABSCESS OR HEMATOMA, THIGH, KNEE SUPERFICIAL (WRVU 6.78) performed by Hayley Torres MD at [facility] MAIN OR PRO REVISION FEMORAL ANAST BPG GROIN OPEN W/NONAUTOG PATCH GRAFT Left 09/28/2024 REV. FEM. ANASTOMOSIS OF SYN. BYPASS GRAFT USING NONAUTOGENOUS PATCH ANGIOPLASTY-JENNIFER (WRVU 23.15) performed by Hayley Torres MD at [facility] MAIN OR PRO UNLISTED PROCEDURE VASCULAR SURGERY Left 09/28/2024 HARVEST SAPHENOUS VEIN (WRVU 13.24) performed by Hayley Torres MD at [facility] MAIN OR VS ARTERIOGRAM LOWER EXTREMITY VASCULAR SURGERY 07/20/2024 VS Arteriogram Lower Extremity Vascular Surgery 07/20/2024 Anabel Finney MD [facility] INTERVENTIONL RAD Social History: Patient lives [...] Pt issued and educated on use of tetryl wringer operator for tetryl wringer operator lower items. Self-feeding: Independent Grooming: Set [...] Discharge planning Total Minutes, Occupational Therapy: 35 ([id number]) OT Evaluation Code Rationale: Diagnosis & Pertinent Co-Morbidities affecting Plan of Care: see PMHx Occupational Profile & Client History: Brief Expanded Extensive x Assessment of Occupational Performance: 1-3 performance deficits 3-5 performance deficits x 5 + performance deficits Clinical Decision Making: Low Moderate High x Clinical decision making of low complexity using standardized patient assessment instrument and measurable assessment of functional outcome. Pager: [phone] Jorge Goetz OT 10/03/2024 Occupational Therapy Rehabilitation [...] Mccormick MD - 10/02/2024 2:06 PM EST [facility] Operative Note Patient Name: Geovanna Dixon Jr. : [id number] MR#: [id number] Case Date: 10/02/2024 Surgeon: Surgeons and Role: [...] 2nd toe amputation who was transferred from [facility] given concern for infected left fem-BK [...] the groin, we then attached a 15 Serbian Jose drain to the [place] drain, and remove the [place] drain, replacing it with the 15 Serbian Jose drain. In a similar way we [...] through: Primary Insurance: [employer] MANAGED MEDICARE Payor: [employer] MANAGED MEDICARE / Plan: [employer] MANAGED MEDICARE PPO / Product Type: *No Product type* / Secondary Insurance: N/A Plan for discharge is: Pending Hospital Course and PT/OT Recommendations Outpatient Agency/Support Group Needs: None Home Health Services: Occupational Therapy, Physical Therapy, Registered Nurse Agency Referrals: [facility]. [address] [place] [phone] Transportation: family or friend will provide Barriers to discharge: Global: Denies needs/concerns at this time Plan: Patient is not medically ready related to: patient is going to the OR today for a washout andremains on blowout precautions. Plan going forward is: when able patient will need to work with PT/OT Anticipated Date of Discharge: 10/10/2024 Penny ROSAS RN CM Phone: [phone] Pager: [phone] * Plan of Care - Heidi Mobley [...] output. * Consult Note - Katelyn Oconnor [facility] - 09/30/2024 7:43 AM EST [facility] Pharmacokinetics Note Drug: Vancomycin Pharmacokinetic target: AUC24 (range) 400-600 mg/L.hr Current regimen: 1500 mg IV every 8 hours Geovanna Dixon is a(n) 49 years old male receiving Vancomycin 1500 mg IV every 8 hours for bacteremia Recent measured serum creatinine values: 09/29/2024 23:52 0.48 mg/dL 09/28/2024 23:51 0.52 mg/dL 09/27/2024 23:58 0.48 mg/dL Assessment: Analysis of the most recent level(s) using Hello [employer] gives the following patient-specific pharmacokinetic parameters: CL: [...] Finney MD - 09/29/2024 2:41 PM EST [facility] Operative Note Patient Name: Geovanna Dixon Jr. : [id number] MR#: [id number] Case Date: 09/29/2024 Surgeon: Surgeons and Role: [...] 2nd toe amputation who was transferred from [facility] given concern for infected left fem-BK [...] mobilized and explored. The area around the CRUDE UNIT OPERATOR was irrigated copiously. The flap was then [...] through: Primary Insurance: [employer] MANAGED MEDICARE Payor: [employer] MANAGED MEDICARE / Plan: [employer] MA[employer]GED MEDICARE PPO / Product Type: *No Product type* / Secondary Insurance: N/A Plan for discharge is: Pending Hospital Course and PT/OT Recommendations Outpatient Agency/Support Group Needs: None Home Health Services: Occupational Therapy, Physical Therapy, Registered Nurse Agency Referrals: [facility] [address] [place] [address] Transportation: family or friend will provide Barriers [...] Discharge: 10/04/2024 Penny ROSAS RN CM Phone: [phone] Pager: [phone] * Consult Note - Rose Wright APRN [...] 2nd toe amputation who was transferred from [facility] given concern for infected left fem-BK [...] smoking 1 week ago. He presented to [facility] on 09/26 and went to [...] Procedure Component Value - Date/Time Blood culture [[id number]] (Abnormal) Collected: 09/27/242132 Lab Status: Preliminary result Specimen: Blood, Venous Updated: 09/29/24 0721 Blood Culture Methicillin Resistant Staphylococcus aureus Gram Stain Aerobic Bottle: Gram positive cocci in clusters Blood culture [[id number]] (Abnormal) Collected: 09/26/24 1845 Lab Status: Preliminary result Specimen: Blood, Venous Updated: 09/29/24 0719 Blood Culture Methicillin Resistant Staphylococcus aureus Comment: isolated. Susceptibilities previously reported. Gram Stain Aerobic Bottle: Gram positive cocci in clusters Blood culture [[id number]] (Abnormal) (Susceptibility) Collected: 09/26/24 1422 Lab Status: Preliminary result Specimen: Blood, Venous Updated: 09/29/24 0717 Blood Culture Methicillin Resistant Staphylococcus aureus Comment: detected by PCR Isolate saved. If future testing is required, contact the Microbiology Pourer [employer]. Gram Stain Aerobic Bottle: Gram positive cocci in clusters Susceptibility Methicillin Resistant Staphylococcus aureus VITEK 2 METHOD Clindamycin Resistant Gentamicin Susceptible [1] Linezolid Susceptible Oxacillin Resistant Trimethoprim/Sulfa Susceptible Vancomycin Susceptible [1] Gentamicin is not appropriate for monotherapy for gram-positive infections. AFB culture [[id number]] Collected: 09/27/24 1654 Lab Status: Preliminary result Specimen: Tissue from Thigh, Left Updated: 09/28/24 2226 Acid Fast Stain No acid fast bacilli seen Anaerobic Culture [[id number]] Collected: 09/27/24 1654 Lab Status: Preliminary result Specimen: Tissue from Thigh, Left Updated: 09/28/24 1355 Anaerobic Culture No anaerobic organisms isolated to date Sonicated Tissue/Implant Culture [[id number]] Collected: 09/26/24 1716 Lab Status: Preliminary result Specimen: Vascular Graft from Leg, Left Updated: 09/28/24 1323 Sonicated Tissue/Implant Culture Culture in progress Tissue Culture, Aerobic Only [[id number]] (Abnormal) Collected: 09/27/24 1654 Lab Status: Preliminary result Specimen: Tissue from Thigh, Left Updated: 09/28/24 1049 Tissue Culture Rare Staphylococcus aureus Gram Stain Few Neutrophils seen No microorganisms seen Abscess/Wound Aspirate Culture, Aerobic Only [[id number]] (Abnormal) (Susceptibility) Collected: 09/26/24 1702 Lab Status: [...] to doxycycline. Abscess/Wound Aspirate Culture, Aerobic Only [[id number]] (Abnormal) (Susceptibility) Collected: 09/26/241649 Lab Status: Preliminary [...] is considered susceptible to doxycycline. Fungus culture [[id number]] Collected: 09/27/241653 Lab Status: Preliminary result Specimen: Tissue from Thigh, Left Updated: 09/28/24 0748 Fungus Culture No fungus isolated to date AFB culture [[id number]] Collected: 09/26/24 170 Lab Status: Preliminary result Specimen: Abscess from Knee, Left Updated: 09/27/24 2335 Acid Fast Stain No acid fast bacilli seen MRSA PCR Screen [[id number]] (Abnormal) Collected: 09/27/24 0751 Lab Status: Final result Specimen: Swab from Nares Updated: 09/27/24 1156 MRSA PCR Detected Narrative: This test was performed using the Xpert MRSA NxG test kit and is run on the [employer] GeneXEcoScraps Dx System. This test is cleared by the U.S. Food and Drug Administration for clinical use and its performance characteristics have been verified by the [facility] at [facility]. Anaerobic Culture [[id number]] Collected: 09/26/241649 Lab Status: Preliminary result Specimen: Abscess from Groin, Left Updated: 09/27/24 1142 Anaerobic Culture No anaerobic organisms isolated to date Anaerobic Culture [[id number]] Collected: 09/26/24 170 Lab Status: Preliminary result Specimen: Abscess from Knee, Left Updated: 09/27/24 1142 Anaerobic Culture No anaerobic organisms isolated to date Fungus culture [[id number]] Collected: 09/26/24 1650 Lab Status: Preliminary result Specimen: Abscess from Groin, Left Updated: 09/27/24726 Fungus Culture No fungus isolated to date Fungus culture [[id number]] Collected: 09/26/24 1702 Lab Status: Preliminary result Specimen: Abscess from Knee, Left Updated: 09/27/24726 Fungus Culture No fungus isolated to date New Studies Results for orders placed or performed during the hospital encounter of 09/26/[address] Read CT Lower Extremity (Exam End: 09/26/2024 1:50 PM) Result Value WORKSTATION ID [id number] Impression 1. There is a left femoral [...] have questions please contact the health care aid that requested your imaging first. Electronically signed by: Lisette Bruno MD, [facility] ([phone]), at 09/26/2024 3:[address] Lower Extremity w Contrast Left (Exam End: 09/27/2024 9:16 AM) Result Value WORKSTATION ID [id number] Impression IMPRESSION: 1. Interval explant of LEFT [...] have questions please contact the health care aid that requested your imaging first. Electronically signed by: Ignacia Chi MD, [facility] ([phone]), at 09/27/2024 10:48 AM 09/28 ABIs Interpretation: [...] 2nd toe amputation who was transferred from [facility] given concern for infected left fem-BK [...] Torres MD - 09/28/2024 12:23 PM EST [facility] Operative Note Patient Name: Geovanna Dixon Jr. : [id number] MR#: [id number] Case Date: 09/28/2024 Surgeon: Surgeons and Role: [...] pericardial patch and PTFE willard over the CRUDE UNIT OPERATOR was unincorporated. - Resection of prior femoral [...] Destination 1 : Left femoral proximal graft Smoking Pipe Maker Leg, Left SURGICAL PATHOLOGY Hayley Torres MD 09/28/2024 1410 2 : Left distal BK pop graft Smoking Pipe Maker Leg, Left SURGICAL PATHOLOGY Hayley Torres MD [...] Indications: 49M with history of a left CRUDE UNIT OPERATOR-BK popliteal artery bypass with PTFE performed in [...] solution. Systemic heparin was administered. Next, the CRUDE UNIT OPERATOR, SFA, and DFA were clamped. An 11-blade scalpel was used to excise the PTFE graft willard and the prior bovine pericardial patch, and all prior Prolene sutures were removed. Residual plaque in the arterial lumen was removed using a [place] elevator. The harvested vein patch was cut [...] the midline with division of the first biology teacher, such that the sartorius muscle was free [...] prior bypass graft were irrigated below the Wilmette drains. Significant thrombus burden was expelled in [...] Torres MD - 09/28/2024 12:23 PM EST [facility] Operative Note Patient Name: Geovanna Dixon Jr. : [id number] MR#: [id number] Case Date: 09/28/2024 Surgeon: Surgeons and Role: [...] - Prior bovine pericardial patch over the CRUDE UNIT OPERATOR was unincorporated. - Resection of prior femoral [...] No * Consult Note - Tea Nguyen, [facility] - 09/28/2024 9:23 AM EST [...] Analysis of the most recent level(s) using Hello [employer] gives the following patient-specific pharmacokinetic parameters: CL: [...] Note Patient Name: Geovanna Dixon Jr. : [id number] MR#: [id number] Case Date: 09/27/2024 Surgeon: Surgeons and Role: [...] AEROBIC & ANAEROBIC Hayley Torres MD 09/27/2024 5185 Fluids: Intraprocedure Crystalloid Total None PRBCs: none [...] Torres MD - 09/27/2024 4:27 PM EST [facility] Operative Note Patient Name: Geovanna Dixon Jr. : [id number] MR#: [id number] Case Date: 09/26/2024 Surgeon: Surgeons and Role: [...] distal anastomoses with Prolene tag on latter. Wilmette drain placed from left groin to left [...] ANAEROBIC Hayley Torres MD 09/26/2024 1702 Drains: Wilmette drain between left groin to left thigh [...] HPI/Surgical Indications: 49M with history of left CRUDE UNIT OPERATOR-BK popliteal artery bypass graft with PTFE (July [...] the tunnel was milked out. A 0.5 Wilmette drain was used to maintain patency of [...] Torres MD - 09/27/2024 4:27 PM EST [facility] Operative Note Patient Name: Geovanna Dixon Jr. 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 He presented to [facility] on 09/26 and went to [...] management and to provide a review of longterm diabetes care. Glargine 25 units administered this [...] outpatient diabetes regimen: Diabetes Provider: PCP in [facility] Medications: Lantus 50 units, [...] Cunningham APRN Endocrinology Diabetes Management Service Pager: [phone] Weekends please page [phone] 80 minute visit was spent in counseling [...] care in [place] must abide by [place] law. The hierarchy [...] (i) The agent with financial power of music adapter or a conservator appointed in accordance with [...] In the past 12 months has the [employer] gas, oil, or water [employer] threatened to shut off services in your [...] DME: none Home Address confirmed as: [address] [address] Social & Family Supports: All names listed [...] his home before. Health/Prescription Coverage: Primary Insurance: [employer] MANAGED MEDICARE Payor: [employer] MANAGED MEDICARE / Plan: [facility] MANAGED MEDICARE PPO / Product Type: *No Product type* / Secondary Insurance: N/A ; Prescription Coverage: Yes Preferred Pharmacy: [facility] - [place], [place] - [address] [place] [address] [facility] [address] [place] [address] - [address] [place] [address] [place], [place] - [address] [place] [address] [address] [facility] [address] [facility] [address] Status: Patient is a : No Primary Care Provider confirmed: JUSTIN Roberson [phone] Patient/Caregiver Goals of Treatment: patient will need [...] where referrals are placed. Provided patient with [facility] Star Quality Rating handout. They have requested referrals to: [facility] [employer]. [address] [place] [address] Expected date of discharge: TBD Referral routed to the Certified Paralegal for matching with agency/vendor and to provide [...] care as indicated. Penny ROSAS, RN Phone: [phone] Pager: [phone] * Consult Note - Stacey Thomas MD [...] extremity aching prompting him to go to [facility]. The groin pain dissipated. About a week later on 09/26 he developed left-sided groin pain prompting him to go to [facility] once again. Lab work notable for WBC count of 21, lactic acid 3.6. He underwent evaluation with a CT scan demonstrating an abscess from the left groin operative site the entire left of the graft down by the knee. He was transferred to [facility] for further care and he was initiated [...] 3.51) performed by Thony Garcia MD at [facility] MAIN OR PRO BYPASS GRAFT OTHR, FEM-TIBIAL Left 08/01/2024 @BYPASS GRAFT, FEM-ANT TIBIAL, -POST TIBIAL, -PERONEAL, -DP W\ SYNTHETIC CONDUIT (WRVU 23.66) performed by Lisette Maldonado MD at [facility] MAIN OR PRO CABG, ARTERY-VEIN, SINGLE 01/04/2012 @CABG, VENOUS & ARTERIAL GRAFT;SINGLE VEIN GRAFT performed by INNA TOVAR at [facility] MAIN OR PRO ENDOSCOPY W/VIDEO-ASST VEIN HARVEST, CABG 01/04/2012 ENDOSCOPIC HARVEST VEIN(S) FOR CABG performed by INNA TOVAR at [facility] MAIN OR VS ARTERIOGRAM LOWER EXTREMITY VASCULAR SURGERY 07/20/2024 VS Arteriogram Lower Extremity Vascular Surgery 07/20/2024 Anabel Finney MD [facility] INTERVENTIONL RAD Medications: potassium chloride ER [...] Continuous Infusions: lactated Ringers 100 mL/hr (09/27/24 9244) sodium chloride 0.9% PRN Meds:.potassium chloride ER [...] admitted to SICU as a transfer from [facility] for suspected graft infection/sepsis. A/Ox4, able [...] Torres MD - 09/26/2024 4:50 PM EST [facility] Operative Note Patient Name: Goevanna Dixon Jr. 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 Postoperative diagnosis: left infected femoral to below knee bypass graft Procedure: Explant of infected LEFT CRUDE UNIT OPERATOR to below-knee popliteal artery PTFE bypass graft [...] Indications: 49M with history of a left CRUDE UNIT OPERATOR-BK popliteal artery bypass with PTFE performed in [...] tunnel using a large Amy clamp, and Wilmette drains were used to prevent the tunnel [...] 2nd toe amputation who was transferred from [facility] given concern for infected left fem-BK [...] 3.51) performed by Thony Garcia MD at [facility] MAIN OR PRO BYPASS GRAFT OTHR, FEM-TIBIAL Left 08/01/2024 @BYPASS GRAFT, FEM-ANT TIBIAL, -POST TIBIAL, -PERONEAL, -DP W\ SYNTHETIC CONDUIT (WRVU 23.66) performed by Lisette Maldonado MD at [facility] MAIN OR PRO CABG, ARTERY-VEIN, SINGLE 01/04/2012 @CABG, VENOUS & ARTERIAL GRAFT;SINGLE VEIN GRAFT performed by INNA TOVAR at [facility] MAIN OR PRO ENDOSCOPY W/VIDEO-ASST VEIN HARVEST, CABG 01/04/2012 ENDOSCOPIC HARVEST VEIN(S) FOR CABG performed by INNA TOVAR at [facility] MAIN OR VS ARTERIOGRAM LOWER EXTREMITY VASCULAR SURGERY 07/20/2024 VS Arteriogram Lower Extremity Vascular Surgery 07/20/2024 Anabel Finney MD [facility] INTERVENTIONL RAD Social Hx: Social History [...] 3 times daily. Use as instructed Indications: [id number] each 1 FreeStyle Lancets 28 gauge Misc [...] 2nd toe amputation who was transferred from [facility] given concern for infected left fem-BK [...] excellent ICU care Diet: NPO Dispo: ICU rCistino Meeks MD Vascular Surgery 09/26/24 [id number] documented in this encounter Plan of Treatment Upcoming Encounters Date Type Department Care Team (Late st Contact Info) Description 11/09/2024 1:30 PM EST Office [place] [address] Isabela Hayward APRN [facility] [place] [address] 11/10/2024 10:00 AM EST Office [place] [address] Dai Whitman APRN 11/21/2024 2:15 PM EST Office [place] [address] Dayanara Grover MD [facility] [place] [address] Pending Results Name Type Priority Associated Diagnoses [...] Debridement Muscle And Fascia 20 Sq Cm/< (60845) 09/29/2024 2:06 PM EST explanted LLE infected graft Exploration Not Followed By Surg Lower Extremity Artery ([id number]) 09/29/2024 2:06 PM EST explanted LLE infected [...] CENTER EGFR - External 104.05 [facility] Anion Gap - External 11.6(H) [facility] Sodium - External 141 [facility] Potassium - External 4.3 [facility] Chloride - External 103 [facility] CO2 - External 26.4 [facility] Calcium - External 9.0 [facility] [...] Hernandez MD CHEMISTRY ORDERABLES Performing Organization Address City/[facility] Co de Phone Number [address] [place] [phone] * CK (10/16/2024) CK, Total - External 39 [facility] Blood VENOUS BLOOD SPECIMEN / Unknown 10/16/2024 Amaya Hernandez MD CHEMISTRY ORDERABLES [address] [place] [phone] * (ABNORMAL) CBC (with Diff) (10/16/2024) WBC - External 10.99(H) [facility] RBC - External 3.71(L) [facility] Hemoglobin - External 10.8(L) [facility] Hematocrit - External 33.8(L) [facility] MCV - External 91 [facility] MCH - External 29.1 [facility] MCHC - External 32.0 [facility] RDWCV - External 14.2(H) [facility] Platelets - External 512(H) [facility] MPV - External 9.8 [facility] NRBC % - External 0.0 [facility] [...] MD HEMATOLOGY ORDERABLE S Performing Organization Address City/State/[facility] Co de Phone Number [facility] [address] [place] [phone] * POC, GLUCOSE (10/10/2024 4:27 PM EST) Glucometer, POC 172 65 - 199 mg/dL 10/10/2024 4:[address] [facility] Comment:Supplemental ranges: <140 mg/dL before meals <180 mg/dL all other times of the day. Blood CAPILLARY BLOOD / Unknown 10/10/2024 4:27 PM EST 10/10/2024 4:27 PM EST Hayley Torres MD POINT OF CARE TEST O RDERAHERNANDEZ Performing Organization Address City/[facility]/ZIP Co de Phone Number [facility] [place] [address] * POC, GLUCOSE (10/10/2024 11:10 AM EST) Glucometer, POC 174 65 - 199 mg/dL 10/10/2024 11:[address] [facility] Comment:Supplemental ranges: <140 mg/dL before meals <180 mg/dL all other times of the day. Blood CAPILLARY BLOOD / Unknown 10/10/2024 11:10 AM EST 10/10/2024 11:11 AM EST Hayley Torres MD POINT OF CARE TEST O GILDA Performing Organization Address [facility] Co de Phone Number [facility] [place] [address] * POC, GLUCOSE (10/10/2024 7:46 AM EST) Glucometer, POC 141 65 - 199 mg/dL 10/10/2024 7:[address] [facility] Comment:Supplemental ranges: <140 mg/dL before meals <180 mg/dL all other times of the day. Blood CAPILLARY BLOOD / Unknown 10/10/2024 7:46 AM EST 10/10/2024 7:46 AM EST Hayley Torres MD POINT OF CARE TEST O GILDA Performing Organization Address City/[facility]/ZIP Co de Phone Number [facility] [place] [address] * POC, GLUCOSE (10/10/2024 6:11 AM EST) Glucometer, POC 127 65 - 199 mg/dL 10/10/2024 6:[address] [facility] Comment:Supplemental ranges: <140 mg/dL before meals <180 mg/dL all other times of the day. Blood CAPILLARY BLOOD / Unknown 10/10/2024 6:11 AM EST 10/10/2024 6:11 AM EST Hayley Torres MD POINT OF CARE TEST O RDERABLES Performing Organization Address City/[facility]/ZIP Co de Phone Number [facility] [place] [address] * CK (10/10/2024 12:33 AM EST) Pathologist [facility] Creatine Kinase 32 0 - 200 unit/L 10/10/2024 8:54 AM [facility] Blood VENOUS BLOOD SPECIMEN / Unknown Venipuncture / Unknown 10/10/2024 12:33 AM EST 10/10/2024 12:43 AM EST María Carranza APRN CHEMISTRY ORDER RANDELL Performing Organization Address City/[facility]/ZIP Co de Phone Number [facility] [place] [address] * (ABNORMAL) CBC (with Diff) (10/10/2024 12:33 AM EST) White Blood Cell 11.57(H) 4.00 - 9.50 x10(3)/mc L 10/10/2024 12:48 AM [facility] Red Blood Cell 3.75(L) 4.58 - [...] MD HEMATOLOGY ORDERABLE S Performing Organization Address City/State/[facility] Co de Phone Number [facility] [place] [address] * (ABNORMAL) Basic Metabolic Panel (10/10/2024 12:33 [...] 3.5 - 5.0 mMol/L 10/10/2024 1:12 AM [facility] Chloride 103 98 - 107 mMol/L 10/10/2024 1:12 AM [facility] Carbon Dioxide 25 22 - 31 mMol/L 10/10/2024 1:[address] [facility] Anion Gap 10 5 - 15 mMol/L 10/10/2024 1:[address] [facility] Calcium 9.4 8.5 - 10.5 mg/dL 10/10/2024 1:[address] [facility] Est Glomerular Filtration Rate - Male 119 mL/min/1. 73 m?? 10/10/2024 1:[address] [facility] Comment: This patient's estimated GFR [...] AM EST Hayley Torres MD CHEMISTRY ORDERABLES [facility] [place] [address] * Phosphorus (10/10/2024 12:33 AM EST) Phosphorus 3.8 2.5 - 4.5 mg/dL 10/10/2024 1:[address] [facility] Blood VENOUS BLOOD SPECIMEN / Unknown Venipuncture / Unknown 10/10/2024 12:33 AM EST 10/10/2024 12:43 AM EST Hayley Torres MD CHEMISTRY ORDERABLES [facility] [place] [address] * Magnesium (10/10/2024 12:33 AM EST) Magnesium 0.81 0.69 - 1.07 mMol/L 10/10/2024 1:[address] [facility] Blood VENOUS BLOOD SPECIMEN / Unknown Venipuncture / Unknown 10/10/2024 12:33 AM EST 10/10/2024 12:43 AM EST Hayley Torres MD CHEMISTRY ORDERABLES Performing Organization Address [facility] Co de Phone Number [facility] [place] [address] * POC, GLUCOSE (10/10/2024 12:31 AM EST) Glucometer, POC 119 65 - 199 mg/dL 10/10/2024 12:[address] [facility] Comment:Supplemental ranges: <140 mg/dL before meals <180 mg/dL all other times of the day. Blood CAPILLARY BLOOD / Unknown 10/10/2024 12:31 AM EST 10/10/2024 12:32 AM EST Hayley Torres MD POINT OF CARE TEST O RDERABLES Performing Organization Address [facility] Co de Phone Number [facility] [place] [address] * POC, GLUCOSE (10/09/2024 8:16 PM EST) Glucometer, POC 104 65 - 199 mg/dL 10/09/2024 8:[address] [facility] Comment:Supplemental ranges: <140 mg/dL before meals <180 mg/dL all other times of the day. Blood CAPILLARY BLOOD / Unknown 10/09/2024 8:16 PM EST 10/09/2024 8:16 PM EST Hayley Torres MD POINT OF CARE TEST O RDERABLES Performing Organization Address [facility] Co de Phone Number [facility] [place] [address] * POC, GLUCOSE (10/09/2024 3:57 PM EST) Glucometer, POC 120 65 - 199 mg/dL 10/09/2024 3:[address] [facility] Comment:Supplemental ranges: <140 mg/dL before meals <180 mg/dL all other times of the day. Blood CAPILLARY BLOOD / Unknown 10/09/2024 3:57 PM EST 10/09/2024 3:57 PM EST Hayley Torres MD POINT OF CARE TEST O RDERABLES [facility] [place] [address] * Place PICC Line: Contact Vascular Access Page [id number] Extremity to exclude: No restrictions; Is PICC [...] to the planned procedure. Hand Hygiene: The cartridge feeder did perform hand hygiene prior to line insertion. Catheter type: PICC Lot number: [id number] Procedure Technique: Skin was prepped with chlorhexidine. [...] Guidance (IV Team) (10/09/2024 1:55 PM EST) AudioCatch Signature WORKSTATION ID [id number] RAD Anatomical Region Laterality Modality N/A Radio [...] have questions please contact the health care aid that requested your imaging first. ? Electronically signed by: Terell Salvador MD, [facility] ([phone]), at 10/09/2024 3:30 PM Narrative 10/09/2024 3:30 [...] who have questions please contactthe health care aid that requested your imaging first. Electronically signed by: Terell Salvador MD, [facility]([phone]), at 10/09/2024 3:30 PM María Carranza APRN IMG FRANCHESKA GILBERT * POC, GLUCOSE (10/09/2024 11:40 AM EST) [facility] Glucometer, POC 180 65 - 199 mg/dL 10/09/2024 11:[address] [facility] Comment:Supplemental ranges: <140 mg/dL before meals <180 mg/dL all other times of the day. Blood CAPILLARY BLOOD / Unknown 10/09/2024 11:40 AM EST 10/09/2024 11:41 AM EST Hayley Torres MD POINT OF CARE TEST O GILDA Performing Organization Address [facility] de Phone Number [facility] [place] [address] * (ABNORMAL) POC, GLUCOSE (10/09/2024 7:35 AM EST) Glucometer, POC 215(H) 65 - 199 mg/dL 10/09/2024 7:[address] [facility] Comment:Supplemental ranges: <140 mg/dL before meals <180 mg/dL all other times of the day. Blood CAPILLARY BLOOD / Unknown 10/09/2024 7:35 AM EST 10/09/2024 7:36 AM EST Hayley Torres MD POINT OF CARE TEST O GILDA Performing Organization Address [facility] de Phone Number [facility] [place] [address] * POC, GLUCOSE (10/09/2024 4:26 AM EST) Glucometer, POC 175 65 - 199 mg/dL 10/09/2024 4:[address] [facility] Comment:Supplemental ranges: <140 mg/dL before meals <180 mg/dL all other times of the day. Blood CAPILLARY BLOOD / Unknown 10/09/2024 4:26 AM EST 10/09/2024 4:26 AM EST Hayley Torres MD POINT OF CARE TEST O GILDA Performing Organization Address [facility] Co de Phone Number [facility] [place] [address] * (ABNORMAL) CBC (with Diff) (10/09/2024 12:45 [...] EST Hayley Torres MD HEMATOLOGY ORDERABLE S [facility] [place] [address] * (ABNORMAL) Basic Metabolic Panel (10/09/2024 12:45 AM EST) Glucose 135 65 - 199 mg/dL 10/09/2024 1:54 AM [facility] Comment:Glucose Concentratio [...] AM EST Hayley Torres MD CHEMISTRY ORDERABLES [facility] [place] [address] * Phosphorus (10/09/2024 12:45 AM EST) Phosphorus 3.9 2.5 - 4.5 mg/dL 10/09/2024 1:[address] [facility] Blood VENOUS BLOOD SPECIMEN / Unknown Venipuncture / Unknown 10/09/2024 12:45 AM EST 10/09/2024 1:27 AM EST Hayley Torres MD CHEMISTRY ORDERABLES [facility] [place] [address] * Magnesium (10/09/2024 12:45 AM EST) Magnesium 0.80 0.69 - 1.07 mMol/L 10/09/2024 1:[address] [facility] Blood VENOUS BLOOD SPECIMEN / Unknown Venipuncture / Unknown 10/09/2024 12:45 AM EST 10/09/2024 1:27 AM EST Hayley Torres MD CHEMISTRY ORDERABLES Performing Organization Address City/[facility] Co de Phone Number [facility] [place] [address] * POC, GLUCOSE (10/09/2024 12:11 AM EST) Glucometer, POC 157 65 - 199 mg/dL 10/09/2024 12:[address] [facility] Comment:Supplemental ranges: <140 mg/dL before meals <180 mg/dL all other times of the day. Blood CAPILLARY BLOOD / Unknown 10/09/2024 12:11 AM EST 10/09/2024 12:11 AM EST Hayley Torres MD POINT OF CARE TEST O RDERABLES [facility] [place] [address] * POC, GLUCOSE (10/08/2024 7:25 PM EST) Glucometer, POC 157 65 - 199 mg/dL 10/08/2024 7:[address] [facility] Comment:Supplemental ranges: <140 mg/dL before meals <180 mg/dL all other times of the day. Blood CAPILLARY BLOOD / Unknown 10/08/2024 7:25 PM EST 10/08/2024 7:25 PM EST Hayley Torres MD POINT OF CARE TEST O DIMITRIERAHERNANDEZ Performing Organization Address City/[facility]/ZIP Co de Phone Number [facility] [place] [address] * POC, GLUCOSE (10/08/2024 5:54 PM EST) Glucometer, POC 198 65 - 199 mg/dL 10/08/2024 5:[address] [facility] Comment:Supplemental ranges: <140 mg/dL before meals <180 mg/dL all other times of the day. Blood CAPILLARY BLOOD / Unknown 10/08/2024 5:54 PM EST 10/08/2024 5:54 PM EST Hayley Torres MD POINT OF CARE TEST O GILDA [facility] [place] [address] * (ABNORMAL) POC, GLUCOSE (10/08/2024 4:08 PM EST) Glucometer, POC 281(H) 65 - 199 mg/dL 10/08/2024 4:[address] [facility] Comment:Supplemental ranges: <140 mg/dL before meals <180 mg/dL all other times of the day. Blood CAPILLARY BLOOD / Unknown 10/08/2024 4:08 PM EST 10/08/2024 4:09 PM EST Hayley Torres MD POINT OF CARE TEST O GILDA Performing Organization Address [facility] de Phone Number [facility] [place] [address] * POC, GLUCOSE (10/08/2024 12:44 PM EST) Glucometer, POC 146 65 - 199 mg/dL 10/08/2024 12:[address] [facility] Comment:Supplemental ranges: <140 mg/dL before meals <180 mg/dL all other times of the day. Blood CAPILLARY BLOOD / Unknown 10/08/2024 12:44 PM EST 10/08/2024 12:44 PM EST Hayley Torres MD POINT OF CARE TEST O GILDA Performing Organization Address [facility] de Phone Number [facility] [place] [address] * POC, GLUCOSE (10/08/2024 8:30 AM EST) Glucometer, POC 172 65 - 199 mg/dL 10/08/2024 8:[address] [facility] Comment:Supplemental ranges: <140 mg/dL before meals <180 mg/dL all other times of the day. Blood CAPILLARY BLOOD / Unknown 10/08/2024 8:30 AM EST 10/08/2024 8:30 AM EST Hayley Torres MD POINT OF CARE TEST O GILDA Performing Organization Address [facility] de Phone Number [facility] [place] [address] * Vancomycin Level, Random (10/08/2024 5:59 AM EST) Vancomycin, Random 6.8 mg/L 2023 7:[address] [facility] Comment:This level is for de termination of the patient's vancomycin ilvu-ajcwp-ftd-curve (AUC) value. Contact the inpatient pharmacy for interpretation. Blood VENOUS BLOOD SPECIMEN / Unknown Venipuncture / Unknown 10/08/2024 5:59 AM EST 10/08/2024 7:29 AM EST Hayley Torres MD CHEMISTRY ORDERABLES Performing Organization Address [facility]/ZIP Co de Phone Number [facility] [place] [address] * POC, GLUCOSE (10/08/2024 4:02 AM EST) [facility] Glucometer, POC 163 65 - 199 mg/dL 10/08/2024 4:02 AM [facility] Comment:Supplemental ranges: <140 mg/dL before meals <180 mg/dL all other times of the day. Blood CAPILLARY BLOOD / Unknown 10/08/2024 4:02 AM EST 10/08/2024 4:02 AM EST Hayley Torres MD POINT OF CARE TEST O RDERABLES Performing Organization Address City/[facility]/ZIP Co de Phone Number [facility] [place] [address] * (ABNORMAL) CBC (with Diff) (10/08/2024 12:08 AM EST) [facility] White Blood Cell 10.35(H) 4.00 - 9.50 x10(3)/mc L 10/08/2024 12:29 AM [facility] Red Blood Cell 3.53(L) 4.58 - [...] MD HEMATOLOGY ORDERABLE S Performing Organization Address City/State/[facility] Co de Phone Number [facility] [place] [address] * (ABNORMAL) Basic Metabolic Panel (10/08/2024 12:08 [...] 22 - 31 mMol/L 10/08/2024 12:[address] [facility] Anion Gap 9 5 - 15 mMol/L 10/08/2024 12:[address] [facility] Calcium 9.2 8.5 - 10.5 mg/dL 10/08/2024 12:[address] [facility] Est Glomerular Filtration Rate - Male 118 mL/min/1. 73 m?? 10/08/2024 12:[address] [facility] Comment: This patient's estimated GFR [...] AM EST Hayley Torres MD CHEMISTRY ORDERABLES [facility] [place] [address] * Phosphorus (10/08/2024 12:08 AM EST) Phosphorus 3.4 2.5 - 4.5 mg/dL 10/08/2024 12:[address] [facility] Blood VENOUS BLOOD SPECIMEN / Unknown Venipuncture / Unknown 10/08/2024 12:08 AM EST 10/08/2024 12:23 AM EST Hayley Torres MD CHEMISTRY ORDERABLES [facility] [place] [address] * Magnesium (10/08/2024 12:08 AM EST) Magnesium 0.85 0.69 - 1.07 mMol/L 10/08/2024 12:[address] [facility] Blood VENOUS BLOOD SPECIMEN / Unknown Venipuncture / Unknown 10/08/2024 12:08 AM EST 10/08/2024 12:23 AM EST Hayley Torres MD CHEMISTRY ORDERABLES [facility] [place] [address] * CK (10/08/2024 12:08 AM EST) Creatine Kinase 24 0 - 200 unit/L 10/08/2024 12:[address] [facility] Blood VENOUS BLOOD SPECIMEN / Unknown Venipuncture / Unknown 10/08/2024 12:08 AM EST 10/08/2024 12:23 AM EST Hayley Torres MD CHEMISTRY ORDERABLES Performing Organization Address City/[facility]/ZIP Co de Phone Number [facility] [place] [address] * POC, GLUCOSE (10/08/2024 12:05 AM EST) Glucometer, POC 100 65 - 199 mg/dL 10/08/2024 12:[address] [facility] Comment:Supplemental ranges: <140 mg/dL before meals <180 mg/dL all other times of the day. Blood CAPILLARY BLOOD / Unknown 10/08/2024 12:05 AM EST 10/08/2024 12:05 AM EST Hayley Torres MD POINT OF CARE TEST O RDERABLES [facility] [place] [address] * POC, GLUCOSE (10/07/2024 8:29 PM EST) Glucometer, POC 107 65 - 199 mg/dL 10/07/2024 8:[address] [facility] Comment:Supplemental ranges: <140 mg/dL before meals <180 mg/dL all other times of the day. Blood CAPILLARY BLOOD / Unknown 10/07/2024 8:29 PM EST 10/07/2024 8:30 PM EST Hayley Torres MD POINT OF CARE TEST O GILDA Performing Organization Address City/[facility] Co de Phone Number [facility] [place] [address] * POC, GLUCOSE (10/07/2024 4:33 PM EST) Glucometer, POC 129 65 - 199 mg/dL 10/07/2024 4:[address] [facility] Comment:Supplemental ranges: <140 mg/dL before meals <180 mg/dL all other times of the day. Blood CAPILLARY BLOOD / Unknown 10/07/2024 4:33 PM EST 10/07/2024 4:34 PM EST Hayley Torres MD POINT OF CARE TEST O GILDA Performing Organization Address [facility] Co de Phone Number [facility] [place] [address] * (ABNORMAL) POC, GLUCOSE (10/07/2024 10:58 AM EST) Glucometer, POC 221(H) 65 - 199 mg/dL 10/07/2024 10:[address] [facility] Comment:Supplemental ranges: <140 mg/dL before meals <180 mg/dL all other times of the day. Blood CAPILLARY BLOOD / Unknown 10/07/2024 10:58 AM EST 10/07/2024 10:59 AM EST Hayley Torres MD POINT OF CARE TEST O GILDA Performing Organization Address City/[facility]/ZIP Co de Phone Number [facility] [place] [address] * (ABNORMAL) POC, GLUCOSE (10/07/2024 7:42 AM EST) Glucometer, POC 201(H) 65 - 199 mg/dL 10/07/2024 7:[address] [facility] Comment:Supplemental ranges: <140 mg/dL before meals <180 mg/dL all other times of the day. Blood CAPILLARY BLOOD / Unknown 10/07/2024 7:42 AM EST 10/07/2024 7:43 AM EST Hayley Torres MD POINT OF CARE TEST O GILDA Performing Organization Address City/[facility]/ZIP Co de Phone Number [facility] [place] [address] * POC, GLUCOSE (10/07/2024 3:58 AM EST) Glucometer, POC 150 65 - 199 mg/dL 10/07/2024 3:[address] [facility] Comment:Supplemental ranges: <140 mg/dL before meals <180 mg/dL all other times of the day. Blood CAPILLARY BLOOD / Unknown 10/07/2024 3:58 AM EST 10/07/2024 3:58 AM EST Hayley Torres MD POINT OF CARE TEST O GILDA Performing Organization Address City/[facility]/ZIP Co de Phone Number [facility] [place] [address] * (ABNORMAL) CBC (with Diff) (10/07/2024 12:06 AM EST) White Blood Cell 11.27(H) 4.00 - 9.50 x10(3)/mc L 10/07/2024 12:[address] [facility] Red Blood Cell 3.47(L) 4.58 - 5.54 x10(6)/mc L 10/07/2024 12:[address] [facility] Hemoglobin 10.1(L) 13.7 - 16.5 [...] EST Hayley Torres MD HEMATOLOGY ORDERABLE S [facility] [place] [address] * (ABNORMAL) Basic Metabolic Panel (10/07/2024 12:06 [...] AM EST Hayley Torres MD CHEMISTRY ORDERABLES [facility] [place] [address] * Phosphorus (10/07/2024 12:06 AM EST) Phosphorus 4.2 2.5 - 4.5 mg/dL 10/07/2024 12:40 AM [facility] Blood VENOUS BLOOD SPECIMEN / Unknown Venipuncture / Unknown 10/07/2024 12:06 AM EST 10/07/2024 12:11 AM EST Hayley Torres MD CHEMISTRY ORDERABLES Performing Organization Address City/[facility]/ZIP Co de Phone Number [facility] [place] [address] * Magnesium (10/07/2024 12:06 AM EST) Magnesium 0.85 0.69 - 1.07 mMol/L 10/07/2024 12:[address] [facility] Blood VENOUS BLOOD SPECIMEN / Unknown Venipuncture / Unknown 10/07/2024 12:06 AM EST 10/07/2024 12:11 AM EST Hayley Torres MD CHEMISTRY ORDERABLES Performing Organization Address [facility]/ZIP Co de Phone Number [facility] [place] [address] * POC, GLUCOSE (10/07/2024 12:04 AM EST) Glucometer, POC 149 65 - 199 mg/dL 10/07/2024 12:[address] [facility] Comment:Supplemental ranges: <140 mg/dL before meals <180 mg/dL all other times of the day. Blood CAPILLARY BLOOD / Unknown 10/07/2024 12:04 AM EST 10/07/2024 12:05 AM EST Hayley Torres MD POINT OF CARE TEST O RDERABLES Performing Organization Address City/[facility]/ZIP Co de Phone Number [facility] [place] [address] * POC, GLUCOSE (10/06/2024 7:24 PM EST) Glucometer, POC 151 65 - 199 mg/dL 10/06/2024 7:[address] [facility] Comment:Supplemental ranges: <140 mg/dL before meals <180 mg/dL all other times of the day. Blood CAPILLARY BLOOD / Unknown 10/06/2024 7:24 PM EST 10/06/2024 7:24 PM EST Hayley Torres MD POINT OF CARE TEST O GILDA Performing Organization Address [facility] Co de Phone Number [facility] [place] [address] * POC, GLUCOSE (10/06/2024 5:32 PM EST) Glucometer, POC 126 65 - 199 mg/dL 10/06/2024 5:[address] [facility] Comment:Supplemental ranges: <140 mg/dL before meals <180 mg/dL all other times of the day. Blood CAPILLARY BLOOD / Unknown 10/06/2024 5:32 PM EST 10/06/2024 5:32 PM EST Hayley Torres MD POINT OF CARE TEST O GILDA Performing Organization Address [facility] de Phone Number [facility] [place] [address] * XR PICC Placement Over 5 Years with Imaging Guidance (IV Team) (10/06/2024 3:04 PM EST) WORKSTATION ID [id number] DH RAD Anatomical Region Laterality Modality N/A [...] have questions please contact the health care aid that requested your imaging first. ? Electronically signed by: Charles Hamilton MD, [facility] ??([phone]), at 10/06/2024 3:43 PM Narrative 10/06/2024 3:43 [...] who have questions please contactthe health care aid that requested your imaging first. Electronically signed by: Charles Hamilton MD, [facility]([phone]), at 10/06/2024 3:43 PM Hayley Torres MD IMG FLUORO ORDERABLE S * Place PICC Line: Contact Vascular Access Page [id number] Extremity to exclude: No restrictions; Is PICC procedure required PRIOR to patients discharge? Yes (10/06/2024 2:57 PM EST) Narrative Dominique Holman RN - 10/06/2024 2:57 PM Dominique Mahoney RN ? 10/06/2024 ??3:00 PM PICC/Midline Insertion [...] to the planned procedure. Hand Hygiene: The cartridge feeder did perform hand hygiene prior to line insertion. Catheter type: PICC Lot number: [id number] Procedure Technique: Skin was prepped with chlorhexidine. [...] PICC placement Dominique Holman RN 10/06/2024 Vibha C Marcelino DIGITAL PRODUCTION MANAGER PROCEDURE/MINOR GORE RGICAL ORDERABLES * POC, GLUCOSE (10/06/2024 12:12 PM EST) Glucometer, POC 137 65 - 199 mg/dL 10/06/2024 12:[address] [facility] Comment:Supplemental ranges: <140 mg/dL before meals <180 mg/dL all other times of the day. Blood CAPILLARY BLOOD / Unknown 10/06/2024 12:12 PM EST 10/06/2024 12:12 PM EST Hayley Torres MD POINT OF CARE TEST O RDERAHERNANDEZ Performing Organization Address City/[facility]/ZIP Co de Phone Number [facility] [place] [address] * (ABNORMAL) POC, GLUCOSE (10/06/2024 7:34 AM EST) Glucometer, POC 209(H) 65 - 199 mg/dL 10/06/2024 7:[address] [facility] Comment:Supplemental ranges: <140 mg/dL before meals <180 mg/dL all other times of the day. Blood CAPILLARY BLOOD / Unknown 10/06/2024 7:34 AM EST 10/06/2024 7:34 AM EST Hayley Torres MD POINT OF CARE TEST O RDERAHERNANDEZ [facility] [place] [address] * POC, GLUCOSE (10/06/2024 3:29 AM EST) Glucometer, POC 151 65 - 199 mg/dL 10/06/2024 3:[address] [facility] Comment:Supplemental ranges: <140 mg/dL before meals <180 mg/dL all other times of the day. Blood CAPILLARY BLOOD / Unknown 10/06/2024 3:29 AM EST 10/06/2024 3:29 AM EST Hayley Torres MD POINT OF CARE TEST O RDERABLES Performing Organization Address City/[facility]/ZIP Co de Phone Number [facility] [place] [address] * Vancomycin Level, Random (10/06/2024 12:03 AM EST) Pathologist [facility] Vancomycin, Random 20.5 mg/L 2023 9:[address] [facility] Comment:This level is for de termination of the patient's vancomycin elpa-omwop-lut-curve (AUC) value. Contact the inpatient pharmacy for interpretation. Blood VENOUS BLOOD SPECIMEN / Unknown Venipuncture / Unknown 10/06/2024 12:03 AM EST 10/06/2024 12:15 AM EST Hayley Torres MD CHEMISTRY ORDERABLES Performing Organization Address City/[facility]/ZIP Co de Phone Number [facility] [place] [place] [address] * (ABNORMAL) CBC (with Diff) (10/06/2024 12:03 AM EST) Pathologist [facility] White Blood Cell 12.26(H) 4.00 - 9.50 x10(3)/mc L 10/06/2024 12:19 AM [facility] Red Blood Cell 3.49(L) 4.58 - [...] EST Hayley Torres MD HEMATOLOGY ORDERABLE S [facility] [place] [address] * Basic Metabolic Panel (10/06/2024 12:03 AM EST) Glucose 94 65 - 199 mg/dL 10/06/2024 12:44 AM [facility] Comment:Glucose Concentratio n >=200 mg/dL plus symptoms is consistent with Diabetes Mellitus. Blood Urea Nitrogen 17 10 - 20 mg/dL 10/06/2024 12:44 AM [facility] Creatinine 0.85 0.80 - 1.50 mg/dL 10/06/2024 12:44 AM [facility] Sodium 139 [...] - 10.5 mg/dL 10/06/2024 12:[address] [facility] Est Glomerular Filtration Rate - [...] AM EST Hayley Torres MD CHEMISTRY ORDERABLES [facility] [place] [address] * Phosphorus (10/06/2024 12:03 AM EST) Phosphorus 4.3 2.5 - 4.5 mg/dL 10/06/2024 12:[address] [facility] Blood VENOUS BLOOD SPECIMEN / Unknown Venipuncture / Unknown 10/06/2024 12:03 AM EST 10/06/2024 12:15 AM EST Hayley Torres MD CHEMISTRY ORDERABLES [facility] [place] [address] * Magnesium (10/06/2024 12:03 AM EST) Magnesium 0.83 0.69 - 1.07 mMol/L 10/06/2024 12:[address] [facility] Blood VENOUS BLOOD SPECIMEN / Unknown Venipuncture / Unknown 10/06/2024 12:03 AM EST 10/06/2024 12:15 AM EST Hayley Torres MD CHEMISTRY ORDERABLES Performing Organization Address City/[facility]/ZIP Co de Phone Number [facility] [place] [place] [address] * POC, GLUCOSE (10/06/2024 12:02 AM EST) Glucometer, POC 98 65 - 199 mg/dL 10/06/2024 12:[address] [facility] Comment:Supplemental ranges: <140 mg/dL before meals <180 mg/dL all other times of the day. Blood CAPILLARY BLOOD / Unknown 10/06/2024 12:02 AM EST 10/06/2024 12:02 AM EST Hayley Torres MD POINT OF CARE TEST O RDERABLES Performing Organization Address City/[facility]/ZIP Co de Phone Number [facility] [place] [address] * POC, GLUCOSE (10/05/2024 7:22 PM EST) Glucometer, POC 186 65 - 199 mg/dL 10/05/2024 7:[address] [facility] Comment:Supplemental ranges: <140 mg/dL before meals <180 mg/dL all other times of the day. Blood CAPILLARY BLOOD / Unknown 10/05/2024 7:22 PM EST 10/05/2024 7:23 PM EST Hayley Torres MD POINT OF CARE TEST O RDERABLES Performing Organization Address City/[facility]/ZIP Co de Phone Number [facility] [place] [address] * POC, GLUCOSE (10/05/2024 5:35 PM EST) Glucometer, POC 177 65 - 199 mg/dL 10/05/2024 5:[address] [facility] Comment:Supplemental ranges: <140 mg/dL before meals <180 mg/dL all other times of the day. Blood CAPILLARY BLOOD / Unknown 10/05/2024 5:35 PM EST 10/05/2024 5:35 PM EST Hayley Torres MD POINT OF CARE TEST O GILDA Performing Organization Address City/[facility] Co de Phone Number [facility] [place] [address] * POC, GLUCOSE (10/05/2024 3:57 PM EST) Glucometer, POC 141 65 - 199 mg/dL 10/05/2024 3:[address] [facility] Comment:Supplemental ranges: <140 mg/dL before meals <180 mg/dL all other times of the day. Blood CAPILLARY BLOOD / Unknown 10/05/2024 3:57 PM EST 10/05/2024 3:57 PM EST Hayley Torres MD POINT OF CARE TEST O GILDA Performing Organization Address [facility] Co de Phone Number [facility] [place] [address] * POC, GLUCOSE (10/05/2024 11:50 AM EST) Glucometer, POC 134 65 - 199 mg/dL 10/05/2024 11:[address] [facility] Comment:Supplemental ranges: <140 mg/dL before meals <180 mg/dL all other times of the day. Blood CAPILLARY BLOOD / Unknown 10/05/2024 11:50 AM EST 10/05/2024 11:50 AM EST Hayley Torres MD POINT OF CARE TEST O GILDA Performing Organization Address City/[facility] Co de Phone Number [facility] [place] [address] * POC, GLUCOSE (10/05/2024 7:51 AM EST) Glucometer, POC 114 65 - 199 mg/dL 10/05/2024 7:[address] [facility] Comment:Supplemental ranges: <140 mg/dL before meals <180 mg/dL all other times of the day. Blood CAPILLARY BLOOD / Unknown 10/05/2024 7:51 AM EST 10/05/2024 7:51 AM EST Hayley Torres MD POINT OF CARE TEST O GILDA Performing Organization Address City/[facility]/ZIP Co de Phone Number [facility] [place] [address] * POC, GLUCOSE (10/05/2024 4:18 AM EST) Glucometer, POC 147 65 - 199 mg/dL 10/05/2024 4:[address] [facility] Comment:Supplemental ranges: <140 mg/dL before meals <180 mg/dL all other times of the day. Blood CAPILLARY BLOOD / Unknown 10/05/2024 4:18 AM EST 10/05/2024 4:18 AM EST Hayley Torres MD POINT OF CARE TEST O GILDA Performing Organization Address City/[facility]/ZIP Co de Phone Number [facility] [place] [address] * (ABNORMAL) CBC (with Diff) (10/04/2024 11:50 PM EST) White Blood Cell 12.73(H) 4.00 - 9.50 x10(3)/mc L 10/05/2024 12:[address] [facility] Red Blood Cell 3.45(L) 4.58 - 5.54 x10(6)/mc L 10/05/2024 12:[address] [facility] Hemoglobin 9.8(L) 13.7 - 16.5 g/dL 10/05/2024 12:[address] [facility] Hematocrit 30.6(L) 40.5 - 48.5 [...] 0.90 x10(3)/mc L 10/05/2024 12:[address] [facility] Eos % 1.6 % 10/05/2024 [...] EST Hayley Torres MD HEMATOLOGY ORDERABLE S [facility] [place] [address] * (ABNORMAL) Basic Metabolic Panel (10/04/2024 11:50 [...] AM EST Hayley Torres MD CHEMISTRY ORDERABLES [facility] [place] [address] * Phosphorus (10/04/2024 11:50 PM EST) Phosphorus 4.2 2.5 - 4.5 mg/dL 10/05/2024 12:35 AM [facility] Blood VENOUS BLOOD SPECIMEN / Unknown Venipuncture / Unknown 10/04/2024 11:50 PM EST 10/05/2024 12:03 AM EST Hayley Torres MD CHEMISTRY ORDERABLES Performing Organization Address [facility] Co de Phone Number [facility] [place] [address] * Magnesium (10/04/2024 11:50 PM EST) Magnesium 0.89 0.69 - 1.07 mMol/L 10/05/2024 12:[address] [facility] Blood VENOUS BLOOD SPECIMEN / Unknown Venipuncture / Unknown 10/04/2024 11:50 PM EST 10/05/2024 12:03 AM EST Hayley Torres MD CHEMISTRY ORDERABLES Performing Organization Address [facility] Co de Phone Number [facility] [place] [address] * POC, GLUCOSE (10/04/2024 11:36 PM EST) Glucometer, POC 121 65 - 199 mg/dL 10/04/2024 11:[address] [facility] Comment:Supplemental ranges: <140 mg/dL before meals <180 mg/dL all other times of the day. Blood CAPILLARY BLOOD / Unknown 10/04/2024 11:36 PM EST 10/04/2024 11:36 PM EST Hayley Torres MD POINT OF CARE TEST O RDERABLES Performing Organization Address City/[facility] Co de Phone Number [facility] [place] [address] * POC, GLUCOSE (10/04/2024 7:32 PM EST) Glucometer, POC 163 65 - 199 mg/dL 10/04/2024 7:[address] [facility] Comment:Supplemental ranges: <140 mg/dL before meals <180 mg/dL all other times of the day. Blood CAPILLARY BLOOD / Unknown 10/04/2024 7:32 PM EST 10/04/2024 7:32 PM EST Hayley Torres MD POINT OF CARE TEST O RDERABLES Performing Organization Address [facility] Co de Phone Number [facility] [place] [address] * EKG 12 Lead (10/04/2024 7:14 PM EST) Ventricular rate 81 BPM MUSE SYSTEM Atrial Rate 81 BPM MUSE SYSTEM P-R Interval 174 ms MUSE SYSTEM QRS Duration 112 ms MUSE SYSTEM Q-T Interval 422 ms MUSE SYSTEM QTC Calculated (Bezet) 490 ms MUSE SYSTEM Calculated P Redfield 34 degrees MUSE SYSTEM Calculated R Redfield 11 degrees MUSE SYSTEM Calculated T Redfield 59 degrees MUSE SYSTEM INTERPRETATION Normal sinus rhythm Cannot rule out Inferior infarct , age undetermined Nonspecific T wave abnormality Borderline ECG When compared with ECG of 29-MAY-2024 14:51, Nonspecific T wave abnormality now evident in Lateral leads Confirmed by MD Robert, Deandre Guadarrama ([id number]) on 10/05/2024 3:35:42 PM MUSE SYSTEM 10/04/2024 7:14 PM EST 10/05/2024 3:35 PM EST Hayley Torres MD ECG ORDERABLES Performing Organization Address [facility] de Phone Number MUSE SYSTEM * POC, GLUCOSE (10/04/2024 5:07 PM EST) Glucometer, POC 95 65 - 199 mg/dL 10/04/2024 5:[address] [facility] Comment:Supplemental ranges: <140 mg/dL before meals <180 mg/dL all other times of the day. Blood CAPILLARY BLOOD / Unknown 10/04/2024 5:07 PM EST 10/04/2024 5:07 PM EST Hayley Torres MD POINT OF CARE TEST O RDERABLES Performing Organization Address City/[facility]/ZIP Co de Phone Number [facility] [place] [address] * POC, GLUCOSE (10/04/2024 4:49 PM EST) Glucometer, POC 70 65 - 199 mg/dL 10/04/2024 4:[address] [facility] Comment:Supplemental ranges: <140 mg/dL before meals <180 mg/dL all other times of the day. Blood CAPILLARY BLOOD / Unknown 10/04/2024 4:49 PM EST 10/04/2024 4:50 PM EST Hayley Torres MD POINT OF CARE TEST O RDERABLES Performing Organization Address City/[facility]/ZIP Co de Phone Number [facility] [place] [address] * POC, GLUCOSE (10/04/2024 11:49 AM EST) Glucometer, POC 93 65 - 199 mg/dL 10/04/2024 11:[address] [facility] Comment:Supplemental ranges: <140 mg/dL before meals <180 mg/dL all other times of the day. Blood CAPILLARY BLOOD / Unknown 10/04/2024 11:49 AM EST 10/04/2024 11:49 AM EST Hayley Torres MD POINT OF CARE TEST O RDERABLES Performing Organization Address [facility] Co de Phone Number [facility] [place] [address] * Vancomycin, trough (10/04/2024 7:53 AM EST) Vancomycin, Trough 19.8 10.0 - 20.0 mg/L 10/04/2024 9:[address] [facility] Comment: Varies according to infection source. Blood VENOUS BLOOD SPECIMEN / Unknown Venipuncture / Unknown 10/04/2024 7:53 AM EST 10/04/2024 8:11 AM EST Hayley Torres MD CHEMISTRY ORDERABLES [facility] [place] [address] * POC, GLUCOSE (10/04/2024 7:51 AM EST) Glucometer, POC 105 65 - 199 mg/dL 10/04/2024 7:[address] [facility] Comment:Supplemental ranges: <140 mg/dL before meals <180 mg/dL all other times of the day. Blood CAPILLARY BLOOD / Unknown 10/04/2024 7:51 AM EST 10/04/2024 7:52 AM EST Hayley Torres MD POINT OF CARE TEST O GILDA Performing Organization Address City/[facility]/ZIP Co de Phone Number [facility] [place] [address] * POC, GLUCOSE (10/04/2024 3:53 AM EST) Glucometer, POC 90 65 - 199 mg/dL 10/04/2024 3:[address] [facility] Comment:Supplemental ranges: <140 mg/dL before meals <180 mg/dL all other times of the day. Blood CAPILLARY BLOOD / Unknown 10/04/2024 3:53 AM EST 10/04/2024 3:53 AM EST Hayley Torres MD POINT OF CARE TEST O GILDA Performing Organization Address City/[facility]/ZIP Co de Phone Number [facility] [place] [address] * (ABNORMAL) CBC (with Diff) (10/04/2024 12:08 AM EST) White Blood Cell 12.58(H) 4.00 - 9.50 x10(3)/mc L 10/04/2024 12:[address] [facility] Red Blood Cell 3.28(L) 4.58 - 5.54 x10(6)/mc L 10/04/2024 12:[address] [facility] Hemoglobin 9.4(L) 13.7 - 16.5 [...] 3.20 x10(3)/mc L 10/04/2024 12:[address] [facility] Monocyte % 5.4 % 10/04/2024 12:[address] [facility] Monocyte Absolute 0.68 0.30 - 0.90 x10(3)/mc L 10/04/2024 12:[address] [facility] Eos % 1.5 % 10/04/2024 12:51 AM [facility] Eos Absolute 0.19 0.00 - 0.40 x10(3)/mc L 10/04/2024 12:[address] [facility] Basophil % 0.6 % 10/04/2024 [...] EST Hayley Torres MD HEMATOLOGY ORDERABLE S [facility] [place] [address] * (ABNORMAL) Basic Metabolic Panel (10/04/2024 12:08 AM EST) Glucose 135 65 - 199 mg/dL 10/04/2024 12:[address] [facility] Comment:Glucose Concentratio n [...] AM EST Hayley Torres MD CHEMISTRY ORDERABLES [facility] [place] [address] * Phosphorus (10/04/2024 12:08 AM EST) Phosphorus 3.7 2.5 - 4.5 mg/dL 10/04/2024 12:[address] [facility] Blood VENOUS BLOOD SPECIMEN / Unknown Venipuncture / Unknown 10/04/2024 12:08 AM EST 10/04/2024 12:15 AM EST Hayley Torres MD CHEMISTRY ORDERABLES Performing Organization Address City/[facility]/ZIP Co de Phone Number [facility] [place] [address] * Magnesium (10/04/2024 12:08 AM EST) Magnesium 0.89 0.69 - 1.07 mMol/L 10/04/2024 12:[address] [facility] Blood VENOUS BLOOD SPECIMEN / Unknown Venipuncture / Unknown 10/04/2024 12:08 AM EST 10/04/2024 12:15 AM EST Hayley Torres MD CHEMISTRY ORDERABLES Performing Organization Address [facility]/ZIP Co de Phone Number [facility] [place] [address] * POC, GLUCOSE (10/04/2024 12:01 AM EST) Glucometer, POC 132 65 - 199 mg/dL 10/04/2024 12:[address] [facility] Comment:Supplemental ranges: <140 mg/dL before meals <180 mg/dL all other times of the day. Blood CAPILLARY BLOOD / Unknown 10/04/2024 12:01 AM EST 10/04/2024 12:02 AM EST Hayley Torres MD POINT OF CARE TEST O RDERABLES Performing Organization Address City/[facility]/ZIP Co de Phone Number [facility] [place] [address] * POC, GLUCOSE (10/03/2024 7:56 PM EST) Glucometer, POC 123 65 - 199 mg/dL 10/03/2024 7:[address] [facility] Comment:Supplemental ranges: <140 mg/dL before meals <180 mg/dL all other times of the day. Blood CAPILLARY BLOOD / Unknown 10/03/2024 7:56 PM EST 10/03/2024 7:57 PM EST Hayley Torres MD POINT OF CARE TEST O GILDA [facility] [place] [address] * POC, GLUCOSE (10/03/2024 5:29 PM EST) Glucometer, POC 182 65 - 199 mg/dL 10/03/2024 5:[address] [facility] Comment:Supplemental ranges: <140 mg/dL before meals <180 mg/dL all other times of the day. Blood CAPILLARY BLOOD / Unknown 10/03/2024 5:29 PM EST 10/03/2024 5:30 PM EST Hayley Torres MD POINT OF CARE TEST O GILDA Performing Organization Address City/[facility]/ZIP Co de Phone Number [facility] [place] [address] * POC, GLUCOSE (10/03/2024 12:54 PM EST) Glucometer, POC 128 65 - 199 mg/dL 10/03/2024 12:[address] [facility] Comment:Supplemental ranges: <140 mg/dL before meals <180 mg/dL all other times of the day. Blood CAPILLARY BLOOD / Unknown 10/03/2024 12:54 PM EST 10/03/2024 12:54 PM EST Hayley Torres MD POINT OF CARE TEST O GILDA [facility] [place] [address] * POC, GLUCOSE (10/03/2024 7:59 AM EST) Glucometer, POC 115 65 - 199 mg/dL 10/03/2024 7:[address] [facility] Comment:Supplemental ranges: <140 mg/dL before meals <180 mg/dL all other times of the day. Blood CAPILLARY BLOOD / Unknown 10/03/2024 7:59 AM EST 10/03/2024 7:59 AM EST Hayley Torres MD POINT OF CARE TEST O GILDA Performing Organization Address City/[facility] Co de Phone Number [facility] [place] [address] * POC, GLUCOSE (10/03/2024 5:32 AM EST) Glucometer, POC 119 65 - 199 mg/dL 10/03/2024 5:[address] [facility] Comment:Supplemental ranges: <140 mg/dL before meals <180 mg/dL all other times of the day. Blood CAPILLARY BLOOD / Unknown 10/03/2024 5:32 AM EST 10/03/2024 5:32 AM EST Hayley Torres MD POINT OF CARE TEST O GILDA Performing Organization Address [facility] Co de Phone Number [facility] [place] [address] * POC, GLUCOSE (10/03/2024 4:16 AM EST) Glucometer, POC 152 65 - 199 mg/dL 10/03/2024 4:[address] [facility] Comment:Supplemental ranges: <140 mg/dL before meals <180 mg/dL all other times of the day. Blood CAPILLARY BLOOD / Unknown 10/03/2024 4:16 AM EST 10/03/2024 4:17 AM EST Hayley Torres MD POINT OF CARE TEST O GILDA Performing Organization Address City/[facility]/ZIP Co de Phone Number [facility] [place] [address] * (ABNORMAL) POC, GLUCOSE (10/03/2024 2:02 AM EST) Glucometer, POC 225(H) 65 - 199 mg/dL 10/03/2024 2:[address] [facility] Comment:Supplemental ranges: <140 mg/dL before meals <180 mg/dL all other times of the day. Blood CAPILLARY BLOOD / Unknown 10/03/2024 2:02 AM EST 10/03/2024 2:02 AM EST Hayley Torres MD POINT OF CARE TEST O RDERABLES [facility] [place] [address] * (ABNORMAL) CBC (with Diff) (10/03/2024 12:27 AM EST) Pathologist [facility] White Blood Cell 15.33(H) 4.00 - 9.50 x10(3)/mc L 10/03/2024 12:51 AM [facility] Red Blood Cell 3.59(L) 4.58 - 5.54 x10(6)/mc L 10/03/2024 12:51 AM [facility] Hemoglobin 10.4(L) 13.7 - 16.5 g/dL 10/03/2024 12:51 AM [facility] Hematocrit 31.2(L) 40.5 - 48.5 % [...] - 0.90 x10(3)/mc L 10/03/2024 12:51 AM [facility] Eos % 0.5 % 10/03/2024 12:51 AM [facility] Eos Absolute 0.07 0.00 - 0.40 x10(3)/mc L 10/03/2024 12:51 AM [facility] Basophil % 0.4 % 10/03/2024 12:51 [...] EST Hayley Torres MD HEMATOLOGY ORDERABLE S [facility] [place] [address] * (ABNORMAL) Basic Metabolic Panel (10/03/2024 12:27 AM EST) Glucose 208(H) 65 - 199 mg/dL 10/03/2024 1:14 AM [facility] Comment:Glucose Concentratio [...] mL/min/1. 73 m?? 10/03/2024 1:[address] [facility] Comment: This patient's estimated GFR [...] Torres MD CHEMISTRY ORDERABLES Performing Organization Address City/[facility]/ZIP Co de Phone Number [facility] [place] [address] * Phosphorus (10/03/2024 12:27 AM EST) Phosphorus 3.5 2.5 - 4.5 mg/dL 10/03/2024 1:[address] [facility] Blood VENOUS BLOOD SPECIMEN / Unknown Venipuncture / Unknown 10/03/2024 12:27 AM EST 10/03/2024 12:47 AM EST Hayley Torres MD CHEMISTRY ORDERABLES [facility] [place] [address] * Magnesium (10/03/2024 12:27 AM EST) Magnesium 0.83 0.69 - 1.07 mMol/L 10/03/2024 1:[address] [facility] Blood VENOUS BLOOD SPECIMEN / Unknown Venipuncture / Unknown 10/03/2024 12:27 AM EST 10/03/2024 12:47 AM EST Hayley Torres MD CHEMISTRY ORDERABLES Performing Organization Address [facility] Co de Phone Number [facility] [place] [address] * (ABNORMAL) POC, GLUCOSE (10/03/2024 12:13 AM EST) Glucometer, POC 255(H) 65 - 199 mg/dL 10/03/2024 12:[address] [facility] Comment:Supplemental ranges: <140 mg/dL before meals <180 mg/dL all other times of the day. Blood CAPILLARY BLOOD / Unknown 10/03/2024 12:13 AM EST 10/03/2024 12:14 AM EST Hayley Torres MD POINT OF CARE TEST O RDERABLES Performing Organization Address [facility] Co de Phone Number [facility] [place] [address] * POC, GLUCOSE (10/02/2024 8:17 PM EST) Glucometer, POC 177 65 - 199 mg/dL 10/02/2024 8:[address] [facility] Comment:Supplemental ranges: <140 mg/dL before meals <180 mg/dL all other times of the day. Blood CAPILLARY BLOOD / Unknown 10/02/2024 8:17 PM EST 10/02/2024 8:17 PM EST Hayley Torres MD POINT OF CARE TEST O GILDA Performing Organization Address City/[facility]/ZIP Co de Phone Number [facility] [place] [address] * POC, GLUCOSE (10/02/2024 6:22 PM EST) Glucometer, POC 172 65 - 199 mg/dL 10/02/2024 6:[address] [facility] Comment:Supplemental ranges: <140 mg/dL before meals <180 mg/dL all other times of the day. Blood CAPILLARY BLOOD / Unknown 10/02/2024 6:22 PM EST 10/02/2024 6:22 PM EST Hayley Torres MD POINT OF CARE TEST O GILDA Performing Organization Address City/[facility]/ZIP Co de Phone Number [facility] [place] [address] * POC, GLUCOSE (10/02/2024 5:01 PM EST) Glucometer, POC 104 65 - 199 mg/dL 10/02/2024 5:[address] [facility] Comment:Supplemental ranges: <140 mg/dL before meals <180 mg/dL all other times of the day. Blood CAPILLARY BLOOD / Unknown 10/02/2024 5:01 PM EST 10/02/2024 5:01 PM EST Hayley Torres MD POINT OF CARE TEST O GILDA Performing Organization Address [facility] Co de Phone Number [facility] [place] [address] * POC, GLUCOSE (10/02/2024 3:05 PM EST) Glucometer, POC 113 65 - 199 mg/dL 10/02/2024 3:[address] [facility] Comment:Supplemental ranges: <140 mg/dL before meals <180 mg/dL all other times of the day. Blood CAPILLARY BLOOD / Unknown 10/02/2024 3:05 PM EST 10/02/2024 3:06 PM EST Hayley Torres MD POINT OF CARE TEST O GILDA [facility] [place] [address] * POC, GLUCOSE (10/02/2024 11:12 AM EST) Glucometer, POC 146 65 - 199 mg/dL 10/02/2024 11:[address] [facility] Comment:Supplemental ranges: <140 mg/dL before meals <180 mg/dL all other times of the day. Blood CAPILLARY BLOOD / Unknown 10/02/2024 11:12 AM EST 10/02/2024 11:12 AM EST Hayley Torres MD POINT OF CARE TEST O GILDA Performing Organization Address City/[facility] Co de Phone Number [facility] [place] [place] [address] * POC, GLUCOSE (10/02/2024 8:12 AM EST) Glucometer, POC 131 65 - 199 mg/dL 10/02/2024 8:[address] [facility] Comment:Supplemental ranges: <140 mg/dL before meals <180 mg/dL all other times of the day. Blood CAPILLARY BLOOD / Unknown 10/02/2024 8:12 AM EST 10/02/2024 8:12 AM EST Hayley Torres MD POINT OF CARE TEST O GILDA Performing Organization Address [facility] Co de Phone Number [facility] [place] [address] * POC, GLUCOSE (10/02/2024 4:19 AM EST) Glucometer, POC 131 65 - 199 mg/dL 10/02/2024 4:[address] [facility] Comment:Supplemental ranges: <140 mg/dL before meals <180 mg/dL all other times of the day. Blood CAPILLARY BLOOD / Unknown 10/02/2024 4:19 AM EST 10/02/2024 4:19 AM EST Hayley Torres MD POINT OF CARE TEST O GILDA Performing Organization Address City/[facility] Co de Phone Number [facility] [place] [address] * Phosphorus (10/02/2024 12:41 AM EST) Pathologist [facility] Phosphorus 4.1 2.5 - 4.5 mg/dL 10/02/2024 1:[address] [facility] Blood VENOUS BLOOD SPECIMEN / Unknown Venipuncture / Unknown 10/02/2024 12:41 AM EST 10/02/2024 12:45 AM EST Hayley Torres MD CHEMISTRY ORDERABLES [facility] [place] [address] * Magnesium (10/02/2024 12:41 AM EST) [facility] Magnesium 0.85 0.69 - 1.07 mMol/L 10/02/2024 1:21 AM [facility] Blood VENOUS BLOOD SPECIMEN / Unknown Venipuncture / Unknown 10/02/2024 12:41 AM EST 10/02/2024 12:45 AM EST Hayley Torres MD CHEMISTRY ORDERABLES Performing Organization Address City/[facility]/ZIP Co de Phone Number [facility] [place] [address] * (ABNORMAL) Basic Metabolic Panel (10/02/2024 12:41 AM EST) [facility] Glucose 113 65 - 199 mg/dL 10/02/2024 [...] 12:41 AM EST 10/02/2024 12:45 AM EST Halyey Torres MD CHEMISTRY ORDERABLES [facility] [place] [address] * (ABNORMAL) CBC (with Diff) (10/02/2024 12:41 AM EST) White Blood Cell 10.93(H) 4.00 - 9.50 x10(3)/mc L 10/02/2024 1:[address] [facility] Red Blood Cell 3.30(L) 4.58 [...] EST Hayley Torres MD HEMATOLOGY ORDERABLE S [facility] [place] [address] * POC, GLUCOSE (10/02/2024 12:40 AM EST) Glucometer, POC 116 65 - 199 mg/dL 10/02/2024 12:41 AM [facility] Comment:Supplemental ranges: <140 mg/dL before meals <180 mg/dL all other times of the day. Blood CAPILLARY BLOOD / Unknown 10/02/2024 12:40 AM EST 10/02/2024 12:41 AM EST Hayley Torres MD POINT OF CARE TEST O RDERAHERNANDEZ Performing Organization Address City/[facility]/ZIP Co de Phone Number [facility] [place] [address] * POC, GLUCOSE (10/01/2024 8:11 PM EST) Glucometer, POC 123 65 - 199 mg/dL 10/01/2024 8:[address] [facility] Comment:Supplemental ranges: <140 mg/dL before meals <180 mg/dL all other times of the day. Blood CAPILLARY BLOOD / Unknown 10/01/2024 8:11 PM EST 10/01/2024 8:11 PM EST Hayley Torres MD POINT OF CARE TEST O GILDA Performing Organization Address [facility] Co de Phone Number [facility] [place] [address] * POC, GLUCOSE (10/01/2024 6:00 PM EST) Glucometer, POC 112 65 - 199 mg/dL 10/01/2024 6:[address] [facility] Comment:Supplemental ranges: <140 mg/dL before meals <180 mg/dL all other times of the day. Blood CAPILLARY BLOOD / Unknown 10/01/2024 6:00 PM EST 10/01/2024 6:00 PM EST Hayley Torres MD POINT OF CARE TEST O GILDA Performing Organization Address City/[facility]/ZIP Co de Phone Number [facility] [place] [address] * POC, GLUCOSE (10/01/2024 3:53 PM EST) Glucometer, POC 97 65 - 199 mg/dL 10/01/2024 3:[address] [facility] Comment:Supplemental ranges: <140 mg/dL before meals <180 mg/dL all other times of the day. Blood CAPILLARY BLOOD / Unknown 10/01/2024 3:53 PM EST 10/01/2024 3:53 PM EST Hayley Torres MD POINT OF CARE TEST O GILDA Performing Organization Address [facility] Co de Phone Number [facility] [place] [address] * POC, GLUCOSE (10/01/2024 2:25 PM EST) Glucometer, POC 117 65 - 199 mg/dL 10/01/2024 2:[address] [facility] Comment:Supplemental ranges: <140 mg/dL before meals <180 mg/dL all other times of the day. Blood CAPILLARY BLOOD / Unknown 10/01/2024 2:25 PM EST 10/01/2024 2:25 PM EST Hayley Torres MD POINT OF CARE TEST O GILDA Performing Organization Address [facility] Co de Phone Number [facility] [place] [address] * POC, GLUCOSE (10/01/2024 11:43 AM EST) Glucometer, POC 174 65 - 199 mg/dL 10/01/2024 11:[address] [facility] Comment:Supplemental ranges: <140 mg/dL before meals <180 mg/dL all other times of the day. Blood CAPILLARY BLOOD / Unknown 10/01/2024 11:43 AM EST 10/01/2024 11:43 AM EST Hayley Torres MD POINT OF CARE TEST O GILDA Performing Organization Address [facility] Co de Phone Number [facility] [place] [address] * POC, GLUCOSE (10/01/2024 9:43 AM EST) Glucometer, POC 191 65 - 199 mg/dL 10/01/2024 9:[address] [facility] Comment:Supplemental ranges: <140 mg/dL before meals <180 mg/dL all other times of the day. Blood CAPILLARY BLOOD / Unknown 10/01/2024 9:43 AM EST 10/01/2024 9:43 AM EST Hayley Torres MD POINT OF CARE TEST O GILDA [facility] [place] [address] * POC, GLUCOSE (10/01/2024 7:48 AM EST) Glucometer, POC 151 65 - 199 mg/dL 10/01/2024 7:[address] [facility] Comment:Supplemental ranges: <140 mg/dL before meals <180 mg/dL all other times of the day. Blood CAPILLARY BLOOD / Unknown 10/01/2024 7:48 AM EST 10/01/2024 7:48 AM EST Hayley Torres MD POINT OF CARE TEST O GILDA Performing Organization Address City/[facility]/ZIP Co de Phone Number [facility] [place] [address] * POC, GLUCOSE (10/01/2024 4:25 AM EST) Glucometer, POC 133 65 - 199 mg/dL 10/01/2024 4:[address] [facility] Comment:Supplemental ranges: <140 mg/dL before meals <180 mg/dL all other times of the day. Blood CAPILLARY BLOOD / Unknown 10/01/2024 4:25 AM EST 10/01/2024 4:26 AM EST Hayley Torres MD POINT OF CARE TEST O GILDA [facility] [place] [address] * Phosphorus (10/01/2024 2:02 AM EST) Phosphorus 3.9 2.5 - 4.5 mg/dL 10/01/2024 7:[address] [facility] Blood VENOUS BLOOD SPECIMEN / Unknown Venipuncture / Unknown 10/01/2024 2:02 AM EST 10/01/2024 2:10 AM EST Hayley Torres MD CHEMISTRY ORDERABLES Performing Organization Address [facility] Phone Number [facility] [place] [address] * (ABNORMAL) Scan, Peripheral Blood (10/01/2024 2:02 AM EST) RBC Morphology Abnormal 10/01/2024 2:[address] [facility] Platelet Estimate Increased(A) Normal 10/01 2:[address] [facility] Polychromasia Present 10/01/2024 2:[address] [facility] Platelet Clumps Present(A) (none) 2:[address] [facility] Blood VENOUS BLOOD SPECIMEN / Unknown Venipuncture / Unknown 10/01/2024 2:02 AM EST 10/01/2024 2:10 AM EST Hayley Torres MD HEMATOLOGY ORDERABLE S Performing Organization Address [facility] Co de Phone Number [facility] [place] [address] * Magnesium (10/01/2024 2:02 AM EST) Magnesium 0.79 0.69 - 1.07 mMol/L 10/01/2024 2:[address] [facility] Blood VENOUS BLOOD SPECIMEN / Unknown Venipuncture / Unknown 10/01/2024 2:02 AM EST 10/01/2024 2:10 AM EST Hayley Torres MD CHEMISTRY ORDERABLES Performing Organization Address City/[facility] Co mn Phone Number [facility] [place] [address] * (ABNORMAL) Basic Metabolic Panel (10/01/2024 2:02 [...] 127 mL/min/1. 73 m?? 10/01/2024 2:41 AM [facility] Comment: This [...] AM EST Hayley Torres MD CHEMISTRY ORDERABLES [facility] [place] [address] * (ABNORMAL) CBC (with Diff) (10/01/2024 2:02 [...] - 0.90 x10(3)/mc L 10/01/2024 2:55 AM [facility] Comment:This is an appended report. These results have been appended to a previously preliminary verified report. Eos % 1.8 % 10/01/2024 2:55 AM [facility] Comment:This is an appended report. These results have been appended to a previously preliminary verified report. Eos Absolute 0.18 0.00 - 0.40 x10(3)/mc L 10/01/2024 2:55 AM [facility] Comment:This is an appended report. These results have been appended to a previously preliminary verified report. Basophil % 0.6 % 10/01/2024 2:[address] [facility] Comment:This is an appended report. These results have been appended to a previously preliminary verified report. Baso Absolute 0.06 0.00 - 0.10 x10(3)/mc L 10/01/2024 2:[address] [facility] Comment:This is an appended report. These results have been appended to a previously preliminary verified report. Immature Gran % 8.4 % 2:[address] [facility] Comment:This is an appended report. These results have been appended to a previously preliminary verified report. Immature Gran Absolute 0.85(H) 0.00 - 0.04 x10(3)/mc L 10/01/2024 2:[address] [facility] Comment:This is an appended report. These results have been appended to a previously preliminary verified report. Blood VENOUS BLOOD SPECIMEN / Unknown Venipuncture / Unknown 10/01/2024 2:02 AM EST 10/01/2024 2:10 AM EST Hayley Torres MD HEMATOLOGY ORDERABLE S [facility] [place] [address] * POC, GLUCOSE (10/01/2024 12:32 AM EST) Glucometer, POC 179 65 - 199 mg/dL 10/01/2024 12:[address] [facility] Comment:Supplemental ranges: <140 mg/dL before meals <180 mg/dL all other times of the day. Blood CAPILLARY BLOOD / Unknown 10/01/2024 12:32 AM EST 10/01/2024 12:32 AM EST Hayley Torres MD POINT OF CARE TEST O RDERABLES [facility] [place] [address] * POC, GLUCOSE (09/30/2024 7:37 PM EST) Glucometer, POC 140 65 - 199 mg/dL 09/30/2024 7:[address] [facility] Comment:Supplemental ranges: <140 mg/dL before meals <180 mg/dL all other times of the day. Blood CAPILLARY BLOOD / Unknown 09/30/2024 7:37 PM EST 09/30/2024 7:38 PM EST Hayley Torres MD POINT OF CARE TEST O GILDA [facility] [place] [address] * POC, GLUCOSE (09/30/2024 4:29 PM EST) Glucometer, POC 126 65 - 199 mg/dL 09/30/2024 4:[address] [facility] Comment:Supplemental ranges: <140 mg/dL before meals <180 mg/dL all other times of the day. Blood CAPILLARY BLOOD / Unknown 09/30/2024 4:29 PM EST 09/30/2024 4:30 PM EST Hayley Torres MD POINT OF CARE TEST O GILDA [facility] [place] [address] * POC, GLUCOSE (09/30/2024 12:16 PM EST) Glucometer, POC 107 65 - 199 mg/dL 09/30/2024 12:[address] [facility] Comment:Supplemental ranges: <140 mg/dL before meals <180 mg/dL all other times of the day. Blood CAPILLARY BLOOD / Unknown 09/30/2024 12:16 PM EST 09/30/2024 12:16 PM EST Hayley Torres MD POINT OF CARE TEST O RDERABLES Performing Organization Address [facility] Co de Phone Number [facility] [place] [address] * POC, GLUCOSE (09/30/2024 7:58 AM EST) Glucometer, POC 92 65 - 199 mg/dL 09/30/2024 7:[address] [facility] Comment:Supplemental ranges: <140 mg/dL before meals <180 mg/dL all other times of the day. Blood CAPILLARY BLOOD / Unknown 09/30/2024 7:58 AM EST 09/30/2024 7:58 AM EST Hayley Torres MD POINT OF CARE TEST O GILDA Performing Organization Address [facility] de Phone Number [facility] [place] [address] * Potassium (09/30/2024 6:27 AM EST) Potassium 3.9 3.5 - 5.0 mMol/L 09/30/2024 7:[address] [facility] Blood VENOUS BLOOD SPECIMEN / Unknown Venipuncture / Unknown 09/30/2024 6:27 AM EST 09/30/2024 6:35 AM EST Hayley Torres MD CHEMISTRY ORDERABLES Performing Organization Address [facility] Co de Phone Number [facility] [place] [address] * Vancomycin, trough (09/30/2024 6:27 AM EST) Vancomycin, Trough 14.1 10.0 - 20.0 mg/L 09/30/2024 7:[address] [facility] Comment: Varies according to infection source. Blood VENOUS BLOOD SPECIMEN / Unknown Venipuncture / Unknown 09/30/2024 6:27 AM EST 09/30/2024 6:35 AM EST Hayley Torres MD CHEMISTRY ORDERABLES Performing Organization Address [facility]/ZIP Co de Phone Number [facility] [place] [address] * POC, GLUCOSE (09/30/2024 3:51 AM EST) Glucometer, POC 134 65 - 199 mg/dL 09/30/2024 3:[address] [facility] Comment:Supplemental ranges: <140 mg/dL before meals <180 mg/dL all other times of the day. Blood CAPILLARY BLOOD / Unknown 09/30/2024 3:51 AM EST 09/30/2024 3:51 AM EST Hayley Torres MD POINT OF CARE TEST O RDERABLES Performing Organization Address [facility] Co de Phone Number [facility] [place] [address] * Magnesium (09/29/2024 11:52 PM EST) [facility] Magnesium 0.85 0.69 - 1.07 mMol/L 09/30/2024 12:[address] [facility] Blood VENOUS BLOOD SPECIMEN / Unknown Venipuncture / Unknown 09/29/2024 11:52 PM EST 09/29/2024 11:58 PM EST Hayley Torres MD CHEMISTRY ORDERABLES Performing Organization Address City/[facility]/ZIP Co de Phone Number [facility] [place] [address] * (ABNORMAL) Basic Metabolic Panel (09/29/2024 11:52 PM EST) Glucose 133 65 - 199 mg/dL 09/30/2024 12:[address] [facility] Comment:Glucose Concentratio n >=200 mg/dL plus symptoms is consistent with Diabetes Mellitus. Blood Urea Nitrogen 9(L) 10 - 20 mg/dL 09/30/2024 12:[address] [facility] Creatinine 0.48(L) 0.80 - 1.50 mg/dL 09/30/2024 12:[address] [facility] Sodium 138 135 - 145 [...] PM EST Hayley Torres MD CHEMISTRY ORDERABLES [facility] [place] [address] * (ABNORMAL) CBC (with Diff) (09/29/2024 11:52 [...] - 0.04 x10(3)/mc L 09/30/2024 12:02 AM [facility] Blood VENOUS BLOOD SPECIMEN / Unknown Venipuncture / Unknown 09/29/2024 11:52 PM EST 09/29/2024 11:58 PM EST Hayley Torres MD HEMATOLOGY ORDERABLE S [facility] [place] [address] * POC, GLUCOSE (09/29/2024 11:51 PM EST) [facility] Glucometer, POC 134 65 - 199 mg/dL 09/29/2024 11:[address] [facility] Comment:Supplemental ranges: <140 mg/dL before meals <180 mg/dL all other times of the day. Blood CAPILLARY BLOOD / Unknown 09/29/2024 11:51 PM EST 09/29/2024 11:51 PM EST Hayley Torres MD POINT OF CARE TEST O RDERABLES [facility] [place] [address] * Blood culture (09/29/2024 9:24 PM EST) Blood Culture No growth at 120 hours 10/04/2024 11:[address] [facility] Blood VENOUS BLOOD SPECIMEN / Unknown Venipuncture / Unknown 09/29/2024 9:24 PM EST 09/29/2024 9:34 PM EST Halyey Torres MD MICROBIOLOGY - BLOOD ORDERABLES Performing Organization Address City/[facility]/ZIP Co de Phone Number [facility] [place] [address] * Blood culture (09/29/2024 9:24 PM EST) Blood Culture No growth at 120 hours 10/04/2024 11:[address] [facility] Blood VENOUS BLOOD SPECIMEN / Unknown Venipuncture / Unknown 09/29/2024 9:24 PM EST 09/29/2024 9:34 PM EST Marko Dickson MD MICROBIOLOGY - BLOOD ORDERABLES [facility] [place] [address] * (ABNORMAL) POC, GLUCOSE (09/29/2024 7:35 PM EST) Glucometer, POC 202(H) 65 - 199 mg/dL 09/29/2024 7:[address] [facility] Comment:Supplemental ranges: <140 mg/dL before meals <180 mg/dL all other times of the day. Blood CAPILLARY BLOOD / Unknown 09/29/2024 7:35 PM EST 09/29/2024 7:36 PM EST Hayley Torres MD POINT OF CARE TEST O GILDA [facility] [place] [address] * POC, GLUCOSE (09/29/2024 6:48 PM EST) Glucometer, POC 161 65 - 199 mg/dL 09/29/2024 6:[address] [facility] Comment:Supplemental ranges: <140 mg/dL before meals <180 mg/dL all other times of the day. Blood CAPILLARY BLOOD / Unknown 09/29/2024 6:48 PM EST 09/29/2024 6:49 PM EST Hayley Torres MD POINT OF CARE TEST O GILDA Performing Organization Address City/[facility]/ZIP Co de Phone Number [facility] [place] [address] * POC, GLUCOSE (09/29/2024 4:06 PM EST) Glucometer, POC 122 65 - 199 mg/dL 09/29/2024 4:[address] [facility] Comment:Supplemental ranges: <140 mg/dL before meals <180 mg/dL all other times of the day. Blood CAPILLARY BLOOD / Unknown 09/29/2024 4:06 PM EST 09/29/2024 4:06 PM EST Hayley Torres MD POINT OF CARE TEST O GILDA [facility] [place] [address] * POC, GLUCOSE (09/29/2024 11:49 AM EST) Glucometer, POC 135 65 - 199 mg/dL 09/29/2024 11:[address] [facility] Comment:Supplemental ranges: <140 mg/dL before meals <180 mg/dL all other times of the day. Blood CAPILLARY BLOOD / Unknown 09/29/2024 11:49 AM EST 09/29/2024 11:50 AM EST Hayley Torres MD POINT OF CARE TEST O GILDA [facility] [place] [address] * (ABNORMAL) POC, GLUCOSE (09/29/2024 7:53 AM EST) Glucometer, POC 202(H) 65 - 199 mg/dL 09/29/2024 7:[address] [facility] Comment:Supplemental ranges: <140 mg/dL before meals <180 mg/dL all other times of the day. Blood CAPILLARY BLOOD / Unknown 09/29/2024 7:53 AM EST 09/29/2024 7:53 AM EST Hayley Torres MD POINT OF CARE TEST O GILDA Performing Organization Address City/[facility]/ZIP Co de Phone Number [facility] [place] [address] * POC, GLUCOSE (09/29/2024 3:45 AM EST) Glucometer, POC 184 65 - 199 mg/dL 09/29/2024 3:[address] [facility] Comment:Supplemental ranges: <140 mg/dL before meals <180 mg/dL all other times of the day. Blood CAPILLARY BLOOD / Unknown 09/29/2024 3:45 AM EST 09/29/2024 3:46 AM EST Hayley Torres MD POINT OF CARE TEST O GILDA [facility] [place] [address] * (ABNORMAL) Hemoglobin A1c (09/28/2024 11:51 PM EST) [facility] Hemoglobin A1c 9.7(H) 4.3 - 5.6 % 09/29/2024 9:54 AM [facility] Comment: Per ADA guidelines, without [...] red blood cell turnover may not be inside sales representative of glycemic control. Reference Interval: 4.3 - 5.6% 5.7 - 6.4%: Consistent with prediabetes >=6.5%: Consistent with diagnosis of diabetes mellitus Estimated Average Glucose 232 mg/dL 09/29/2024 9:[address] [facility] Blood VENOUS BLOOD SPECIMEN / Unknown Venipuncture / Unknown 09/28/2024 11:51 PM EST 09/28/2024 11:56 PM EST Hayley Torres MD CHEMISTRY ORDERABLES [facility] [place] [address] * Magnesium (09/28/2024 11:51 PM EST) [facility] Magnesium 0.72 0.69 - 1.07 mMol/L 09/29/2024 12:27 AM [facility] Blood VENOUS BLOOD SPECIMEN / Unknown Venipuncture / Unknown 09/28/2024 11:51 PM EST 09/28/2024 11:57 PM EST Hayley Torres MD CHEMISTRY ORDERABLES [facility] [place] [address] * (ABNORMAL) Basic Metabolic Panel (09/28/2024 11:51 [...] PM EST Hayley Torres MD CHEMISTRY ORDERABLES [facility] [place] [address] * (ABNORMAL) CBC (with Diff) (09/28/2024 11:51 [...] MD HEMATOLOGY ORDERABLE S Performing Organization Address City/[facility]/ZIP Co de Phone Number [facility] [place] [address] * (ABNORMAL) POC, GLUCOSE (09/28/2024 11:45 PM EST) Glucometer, POC 238(H) 65 - 199 mg/dL 09/28/2024 11:[address] [facility] Comment:Supplemental ranges: <140 mg/dL before meals <180 mg/dL all other times of the day. Blood CAPILLARY BLOOD / Unknown 09/28/2024 11:45 PM EST 09/28/2024 11:45 PM EST Hayley Torres MD POINT OF CARE TEST O GILDA Performing Organization Address [facility] Co de Phone Number [facility] [place] [address] * (ABNORMAL) POC, GLUCOSE (09/28/2024 10:00 PM EST) Glucometer, POC 287(H) 65 - 199 mg/dL 09/28/2024 10:[address] [facility] Comment:Supplemental ranges: <140 mg/dL before meals <180 mg/dL all other times of the day. Blood CAPILLARY BLOOD / Unknown 09/28/2024 10:00 PM EST 09/28/2024 10:00 PM EST Hayley Torres MD POINT OF CARE TEST O GILDA Performing Organization Address City/[facility] Co de Phone Number [facility] [place] [address] * (ABNORMAL) POC, GLUCOSE (09/28/2024 7:51 PM EST) Glucometer, POC 243(H) 65 - 199 mg/dL 09/28/2024 7:[address] [facility] Comment:Supplemental ranges: <140 mg/dL before meals <180 mg/dL all other times of the day. Blood CAPILLARY BLOOD / Unknown 09/28/2024 7:51 PM EST 09/28/2024 7:52 PM EST Hayley Torres MD POINT OF CARE TEST O GILDA Performing Organization Address [facility]/ZIP Co de Phone Number [facility] [place] [address] * Blood culture (09/28/2024 5:49 PM EST) Blood Culture No growth at 120 hours 10/03/2024 7:[address] [facility] Blood VENOUS BLOOD SPECIMEN / Unknown Venipuncture / Unknown 09/28/2024 5:49 PM EST 09/28/2024 5:53 PM EST Marko Dickson MD MICROBIOLOGY - BLOOD ORDERABLES Performing Organization Address [facility] Co de Phone Number [facility] [place] [address] * (ABNORMAL) POC, GLUCOSE (09/28/2024 4:42 PM EST) Glucometer, POC 203(H) 65 - 199 mg/dL 09/28/2024 4:[address] [facility] Comment:Supplemental ranges: <140 mg/dL before meals <180 mg/dL all other times of the day. Blood CAPILLARY BLOOD / Unknown 09/28/2024 4:42 PM EST 09/28/2024 4:42 PM EST Hayley Torres MD POINT OF CARE TEST O GILDA Performing Organization Address [facility] Co de Phone Number [facility] [place] [place] [address] * (ABNORMAL) Blood Gas, Arterial POC (09/28/2024 [...] 135 - 145 mmol/L 09/28/2024 3:17 PM [facility] Potassium, Arterial 3.8 3.5 - 5.0 mmol/L 09/28/2024 3:17 PM [facility] Chloride, Arterial 99 98 - 107 mmol/L 09/28/2024 3:17 PM [facility] Lactate, Arterial 1.1 0.5 - 2.2 mmol/L 09/28/2024 3:17 PM [facility] IONIZED CALCIUM, ARTERIAL 1.08(L) 1.15 - 1.33 mmol/L 09/28/2024 3:[address] [facility] Glucose, Arterial 163 65 - 199 mg/dL 09/28/2024 3:[address] [facility] Comment:Glucose Concentratio n >=200 mg/dL plus symptoms is consistent with Diabetes Mellitus. Blood ARTERIAL BLOOD / Unknown 09/28/2024 3:16 PM EST 09/28/2024 3:17 PM EST Hayley Torres MD POINT OF CARE TEST O RDERABLES [facility] [place] [address] * Surgical Pathology (09/28/2024 2:10 PM EST) Case Report Surgical Pathology Report ? Case: [id number] ? Authorizing Provider: ??Hayley Torres MD ? Collected: ? 09/28/2024 1410 ? Ordering Location: ? Main Operating Room Akanksha ?? Received: ?09/28/2024 1644 ? [facility] ? Hospital ? Pathologist: ? [...] distal BK pop graft 10/02/2024 8:17 AM [facility] Gross Description A. Leg, Left, [...] diagnosis only sns 10/02/2024 8:[address] [facility] Result Note Routine 10/02/2024 8:[address] [facility] Smoking Pipe Maker STRUCTURE OF LEFT LOWER LIMB / Unknown 09/28/2024 2:10 PM EST 09/28/2024 4:44 PM EST Comment:Left femoral proxima l graft Biomedical device (physical object) STRUCTURE OF LEFT LOWER LIMB / Unknown 09/28/2024 2:17 PM EST 09/28/2024 4:44 PM EST Comment:Left distal BK pop g raft Hayley Torres MD PATHOLOGY/CYTOLOGY O RDERABLES Performing Organization Address City/[facility]/ZIP Co de Phone Number [facility] [place] [address] * Potassium (09/28/2024 10:45 AM EST) Potassium 4.6 3.5 - 5.0 mMol/L 09/28/2024 12:[address] [facility] Blood VENOUS BLOOD SPECIMEN / Unknown Venipuncture / Unknown 09/28/2024 10:45 AM EST 09/28/2024 10:53 AM EST Marko Dicskon MD CHEMISTRY ORDERABLES [facility] [place] [address] * POC, GLUCOSE (09/28/2024 7:57 AM EST) Glucometer, POC 192 65 - 199 mg/dL 09/28/2024 7:[address] [facility] Comment:Supplemental ranges: <140 mg/dL before meals <180 mg/dL all other times of the day. Blood CAPILLARY BLOOD / Unknown 09/28/2024 7:57 AM EST 09/28/2024 7:57 AM EST Marko Dickson MD POINT OF CARE TEST O RDERABLES [facility] [place] [address] * ELEN, legs, multiple levels (09/28/2024 7:44 AM EST) VB Text Report Department: Vascular Surgery Lab Patient: [id number] (GEOVANNA DIXON) CPT: 56553 Referring Physician: HERMILA SNIDER ?? Phone: Indications: [...] VASCUBASE 09/28/2024 7:44 AM EST Hermila White RESHMA VASCULAR ORDERABLE S VASCUBASE * ECHO LMTD W/O CONTRAST W LMTD SPEC DOPP COLOR DOPP (09/28/2024 7:35 AM EST) Anatomical Region Laterality Modality Cardiac Other 09/28/2024 6:56 AM EST Narrative 09/28/2024 9:15 AM EST [address] [place] [address] ? Echocardiogram Report Name: GEOVANNA DIXON JR ?Study Date: 09/28/2024 06:56 AMBP: 132/75 mmHg ? Patient Location: ^IC08^A : 1975 ? Height: 179 cm ? Account: [id number] Age: 49 yrs ? Weight: 108 kg Gender: Male ?BSA: 2.3 m2 Ordering Physician: Marko Dickson MD Referring Physician: PATRIC GILES Performed By: Faiza Cole Reason For Study: Vascular graft infection, initial encounter; MRSA bacteremia Interpreting Fellow: Jame Lares. Exam Location: [facility]. Interpretation Summary -Limited study performed [...] 05/29/2024, no significant changes. Procedure Limited - 09894. Doppler - 19848. Color Doppler - 71290. Suboptimal quality. This study is limited because [...] Note David Lomeli MD - 09/28/2024 [address] [place] [address] Echocardiogram Report Name: GEOVANNA DIXON JR Study Date: 406:56 AMBP: 132/75 mmHg Patient Location:[address] : 1975 Height: 179 cm Account: [id number] Age: 49 yrs Weight: 108 kg Gender: Male BSA: 2.3 m2 Ordering Physician: Marko Dickson MD Referring Physician: PATRIC GILES Performed By: Faiza Cole Reason For Study: Vascular graft infection, initial encounter; MRSAbacteremia Interpreting Fellow: Jame Lares. Exam Location: [facility]. Interpretation Summary -Limited study performed [...] 05/29/2024, no significant changes. Procedure Limited - 87954. Doppler - 38705. Color Doppler - 76751. Suboptimalquality. This study is limited because of [...] - 20.0 mg/L 09/28/2024 7:[address] [facility] Comment: Varies according to infection source. Blood VENOUS BLOOD SPECIMEN / Unknown Venipuncture / Unknown 09/28/2024 6:44 AM EST 09/28/2024 6:49 AM EST Marko Dickson MD CHEMISTRY ORDERABLES Performing Organization Address [facility] Co de Phone Number [facility] [place] [address] * (ABNORMAL) Potassium (09/28/2024 4:55 AM EST) Potassium 2.9(LLL) 3.5 - 5.0 mMol/L 09/28/2024 5:[address] [facility] Blood VENOUS BLOOD SPECIMEN / Unknown Venipuncture / Unknown 09/28/2024 4:55 AM EST 09/28/2024 5:01 AM EST Marko Dickson MD CHEMISTRY ORDERABLES Performing Organization Address [facility] de Phone Number [facility] [place] [place] [address] * (ABNORMAL) POC, GLUCOSE (09/28/2024 3:54 AM EST) Glucometer, POC 229(H) 65 - 199 mg/dL 09/28/2024 3:[address] [facility] Comment:Supplemental ranges: <140 mg/dL before meals <180 mg/dL all other times of the day. Blood CAPILLARY BLOOD / Unknown 09/28/2024 3:54 AM EST 09/28/2024 3:54 AM EST Marko Dickson MD POINT OF CARE TEST O RDERABLES Performing Organization Address [facility] Co de Phone Number [facility] [place] [address] * Magnesium (09/27/2024 11:58 PM EST) Magnesium 0.77 0.69 - 1.07 mMol/L 09/28/2024 12:[address] [facility] Blood VENOUS BLOOD SPECIMEN / Unknown Venipuncture / Unknown 09/27/2024 11:58 PM EST 09/28/2024 12:10 AM EST Hayley Torres MD CHEMISTRY ORDERABLES [facility] [address] * (ABNORMAL) Basic Metabolic Panel (09/27/2024 11:58 [...] AM EST Hayley Torres MD CHEMISTRY ORDERABLES [facility] [place] [address] * (ABNORMAL) CBC (with Diff) (09/27/2024 11:58 [...] Eos % 0.7 % 09/28/2024 12:14 AM [facility] Eos Absolute 0.12 0.00 - 0.40 x10(3)/mc L 09/28/2024 12:14 AM [facility] Basophil % 0.5 % 09/28/2024 12:14 AM [facility] Baso Absolute 0.08 0.00 - 0.10 x10(3)/mc L 09/28/2024 12:14 AM [facility] Immature Gran % 1.4 % 12:14 AM [facility] Immature Gran Absolute 0.24(H) 0.00 - 0.04 x10(3)/mc L 09/28/2024 12:[address] [facility] Blood VENOUS BLOOD SPECIMEN / Unknown Venipuncture / Unknown 09/27/2024 11:58 PM EST 09/28/2024 12:10 AM EST Hayley Torres MD HEMATOLOGY ORDERABLE S [facility] [place] [address] * (ABNORMAL) POC, GLUCOSE (09/27/2024 11:46 PM EST) Glucometer, POC 205(H) 65 - 199 mg/dL 09/27/2024 11:[address] [facility] Comment:Supplemental ranges: <140 mg/dL before meals <180 mg/dL all other times of the day. Blood CAPILLARY BLOOD / Unknown 09/27/2024 11:46 PM EST 09/27/2024 11:46 PM EST Marko Dickson MD POINT OF CARE TEST O RDERABLES [facility] [place] [address] * (ABNORMAL) Blood culture (09/27/2024 9:33 PM EST) Blood Culture Methicillin Resistant Staphylococcus aureus(Critical) 10/02/2024 8:[address] [facility] Comment:Susceptibilities pre viously reported. Gram Stain Aerobic Bottle: Gram positive cocci in clusters(Critical ) 10/02/2024 8:[address] [facility] Blood VENOUS BLOOD SPECIMEN / Unknown Venipuncture / Unknown 09/27/2024 9:33 PM EST 09/27/2024 9:38 PM EST Marko Dickson MD MICROBIOLOGY - BLOOD ORDERABLES [facility] [place] [address] * POC, GLUCOSE (09/27/2024 7:51 PM EST) Glucometer, POC 142 65 - 199 mg/dL 09/27/2024 7:[address] [facility] Comment:Supplemental ranges: <140 mg/dL before meals <180 mg/dL all other times of the day. Blood CAPILLARY BLOOD / Unknown 09/27/2024 7:51 PM EST 09/27/2024 7:51 PM EST Marko Dickson MD POINT OF CARE TEST O RDERABLES [facility] [place] [address] * (ABNORMAL) Hemogram (09/27/2024 5:55 PM EST) [facility] White Blood Cell 19.38(H) 4.00 - 9.50 x10(3)/mc L 09/27/2024 6:16 PM [facility] Red Blood Cell 3.76(L) 4.58 - 5.54 x10(6)/mc L 09/27/2024 6:16 PM [facility] Hemoglobin 11.0(L) 13.7 - 16.5 g/dL 09/27/2024 6:16 PM [facility] Hematocrit 31.6(L) 40.5 - 48.5 [...] EST Marko Dickson MD HEMATOLOGY ORDERABLE S [facility] [place] [address] * POC, GLUCOSE (09/27/2024 5:48 PM EST) [facility] Glucometer, POC 171 65 - 199 mg/dL 09/27/2024 5:[address] [facility] Comment:Supplemental ranges: <140 mg/dL before meals <180 mg/dL all other times of the day. Blood CAPILLARY BLOOD / Unknown 09/27/2024 5:48 PM EST 09/27/2024 5:48 PM EST Marko Dickson MD POINT OF CARE TEST O RDERABLES [facility] [place] [address] * Anaerobic Culture (09/27/2024 4:54 PM EST) [facility] Anaerobic Culture No anaerobic organisms isolated 10/01/2024 3:[address] [facility] Tissue STRUCTURE OF LEFT THIGH / Unknown 09/27/2024 4:54 PM EST Comment:Infected explanted l eft leg bypass graft Hayley Torres MD MICROBIOLOGY - GENER AL ORDERABLES [facility] [place] [address] * (ABNORMAL) Tissue Culture, Aerobic Only (09/27/2024 4:54 PM EST) Tissue Culture Rare Methicillin Resistant Staphylococcus aureus(A) VITEK 2 METHOD 10/01/2024 1:[address] [facility] Gram Stain Few Neutrophils seen 10/01/2024 1:[address] [facility] Gram Stain No microorganisms seen 10/01/2024 1:[address] [facility] Tissue STRUCTURE OF LEFT THIGH [...] Torres MD MICROBIOLOGY - GENER AL ORDERABLES [facility] [place] [address] * Fungus culture (09/27/2024 4:54 PM EST) Fungus Culture No fungus isolated 10/31/2024 7:[address] [facility] Tissue STRUCTURE OF LEFT THIGH / Unknown 09/27/2024 4:54 PM EST 09/27/2024 5:23 PM EST Comment:Infected explanted l eft leg bypass graft Hayley Torres MD MICROBIOLOGY - GENER AL ORDERABLES [facility] [place] [address] * POC, GLUCOSE (09/27/2024 3:23 PM EST) Glucometer, POC 178 65 - 199 mg/dL 09/27/2024 3:[address] [facility] Comment:Supplemental ranges: <140 mg/dL before meals <180 mg/dL all other times of the day. Blood CAPILLARY BLOOD / Unknown 09/27/2024 3:23 PM EST 09/27/2024 3:23 PM EST Marko Dickson MD POINT OF CARE TEST O GILDA Performing Organization Address [facility]/ZIP Co de Phone Number [facility] [place] [address] * POC, GLUCOSE (09/27/2024 11:29 AM EST) Glucometer, POC 181 65 - 199 mg/dL 09/27/2024 11:[address] [facility] Comment:Supplemental ranges: <140 mg/dL before meals <180 mg/dL all other times of the day. Blood CAPILLARY BLOOD / Unknown 09/27/2024 11:29 AM EST 09/27/2024 11:30 AM EST Marko Dickson MD POINT OF CARE TEST O GILDA [facility] [place] [address] * CT Lower Extremity w Contrast Left (09/27/2024 9:16 AM EST) WORKSTATION ID [id number] RAD Anatomical Region Laterality Modality Hip, Leg, [...] have questions please contact the health care aid that requested your imaging first. ? Electronically signed by: Ignacia Chi MD, [facility] ([phone]), at 09/27/2024 10:48 AM Narrative 09/27/2024 10:48 [...] who have questions please contactthe health care aid that requested your imaging first. Electronically signed by: Ignacia Chi MD, [facility]([phone]), at 09/27/2024 10:48 AM Rose Wright DIGITAL PRODUCTION MANAGER IMG CT ORDERABL ES * POC, GLUCOSE (09/27/2024 7:51 AM EST) [facility] Glucometer, POC 194 65 - 199 mg/dL 09/27/2024 7:[address] [facility] Comment:Supplemental ranges: <140 mg/dL before meals <180 mg/dL all other times of the day. Blood CAPILLARY BLOOD / Unknown 09/27/2024 7:51 AM EST 09/27/2024 7:51 AM EST Marko Dickson MD POINT OF CARE TEST O RDERABLES [facility] [place] [address] * (ABNORMAL) MRSA PCR Screen (09/27/2024 7:51 AM EST) Pathologist [facility] MRSA PCR Detected(A ) 09/27/2024 11:56 AM EST [facility] Swab BOTH ANTERIOR NARES / Unknown Non Blood Collection / Unknown 09/27/2024 7:51 AM EST 09/27/2024 8:05 AM EST Narrative [facility] - 09/27/2024 11:56 AM EST This test was performed using the Xpert MRSA NxG test kit and is run on the [employer] GeneXpert Dx System. This test is cleared by the U.S. Food and Drug Administration for clinical use and its performance characteristics have been verified by the [facility] at [facility]. Marko Dickson MD MOLECULAR ORDERABLES Performing Organization Address City/[facility]/ZIP Co de Phone Number [facility] [place] [address] * Potassium (09/27/2024 7:51 AM EST) Potassium 3.5 3.5 - 5.0 mMol/L 09/27/2024 9:[address] [facility] Blood VENOUS BLOOD SPECIMEN / Unknown Venipuncture / Unknown 09/27/2024 7:51 AM EST 09/27/2024 8:05 AM EST Marko Dickson MD CHEMISTRY ORDERABLES Performing Organization Address City/[facility]/ZIP Co de Phone Number [facility] [place] [address] * (ABNORMAL) Potassium (09/27/2024 5:05 AM EST) [facility] Signature Potassium 3.4(L) 3.5 - 5.0 mMol/L 09/27/2024 5:[address] [facility] Blood VENOUS BLOOD SPECIMEN / Unknown Venipuncture / Unknown 09/27/2024 5:05 AM EST 09/27/2024 5:09 AM EST Marko Dickson MD CHEMISTRY ORDERABLES Performing Organization Address City/[facility]/ZIP Co de Phone Number [facility] [place] [address] * POC, GLUCOSE (09/27/2024 3:52 AM EST) Glucometer, POC 199 65 - 199 mg/dL 09/27/2024 3:[address] [facility] Comment:Supplemental ranges: <140 mg/dL before meals <180 mg/dL all other times of the day. Blood CAPILLARY BLOOD / Unknown 09/27/2024 3:52 AM EST 09/27/2024 3:52 AM EST Marko Dickson MD POINT OF CARE TEST O RDTYESHA [facility] [place] [address] * (ABNORMAL) POC, GLUCOSE (09/27/2024 1:59 AM EST) Glucometer, POC 219(H) 65 - 199 mg/dL 09/27/2024 2:[address] [facility] Comment:Supplemental ranges: <140 mg/dL before meals <180 mg/dL all other times of the day. Blood CAPILLARY BLOOD / Unknown 09/27/2024 1:59 AM EST 09/27/2024 2:00 AM EST Marko Dickson MD POINT OF CARE TEST O GILDA [facility] [place] [address] * (ABNORMAL) Magnesium (09/27/2024 12:01 AM EST) Magnesium 0.68(L) 0.69 - 1.07 mMol/L 09/27/2024 12:[address] [facility] Blood VENOUS BLOOD SPECIMEN / Unknown Venipuncture / Unknown 09/27/2024 12:01 AM EST 09/27/2024 12:05 AM EST Hayley Torres MD CHEMISTRY ORDERABLES [facility] [place] [address] * (ABNORMAL) Basic Metabolic Panel (09/27/2024 12:01 [...] AM EST Hayley Torres MD CHEMISTRY ORDERABLES [facility] [place] [address] * (ABNORMAL) CBC (with Diff) (09/27/2024 12:01 [...] MD HEMATOLOGY ORDERABLE S Performing Organization Address [facility] Co de Phone Number [facility] [place] [address] * (ABNORMAL) POC, GLUCOSE (09/26/2024 11:59 PM EST) Glucometer, POC 251(H) 65 - 199 mg/dL 09/26/2024 11:[address] [facility] Comment:Supplemental ranges: <140 mg/dL before meals <180 mg/dL all other times of the day. Blood CAPILLARY BLOOD / Unknown 09/26/2024 11:59 PM EST 09/26/2024 11:59 PM EST Marko Dickson MD POINT OF CARE TEST O GILDA Performing Organization Address [facility] Co de Phone Number [facility] [place] [address] * (ABNORMAL) POC, GLUCOSE (09/26/2024 7:34 PM EST) Glucometer, POC 204(H) 65 - 199 mg/dL 09/26/2024 7:[address] [facility] Comment:Supplemental ranges: <140 mg/dL before meals <180 mg/dL all other times of the day. Blood CAPILLARY BLOOD / Unknown 09/26/2024 7:34 PM EST 09/26/2024 7:35 PM EST Marko Dickson MD POINT OF CARE TEST Stephanie VO Performing Organization Address City/[facility]/ZIP Co de Phone Number [facility] [place] [address] * (ABNORMAL) Blood culture (09/26/2024 6:45 PM EST) Blood Culture Methicillin Resistant Staphylococcus aureus(Critical) 10/01/2024 6:[address] [facility] Comment: isolated. Susceptibilities previously reported. Gram Stain Aerobic Bottle: Gram positive cocci in clusters(Critical ) 10/01/2024 6:[address] [facility] Blood VENOUS BLOOD SPECIMEN / Unknown Venipuncture / Unknown 09/26/2024 6:45 PM EST 09/26/2024 6:48 PM EST Marko Dickson MD MICROBIOLOGY - BLOOD ORDERABLES [facility] [place] [address] * (ABNORMAL) Sonicated Tissue/Implant Culture (09/26/2024 5:16 PM EST) Sonicated Tissue/Implan t Culture Methicillin Resistant Staphylococcus aureus(A) VITEK 2 METHOD 09/30/2024 1:[address] [facility] Comment: isolated from broth culture. Susceptibilities previously reported. Vascular Graft STRUCTURE OF LEFT LOWER LIMB / Unknown Non Blood Collection / Unknown 09/26/2024 5:16 PM EST 09/26/2024 5:45 PM EST Marko Dickson MD MICROBIOLOGY - GENER AL ORDERABLES [facility] [place] [address] * Anaerobic Culture (09/26/2024 5:02 PM EST) Anaerobic Culture No anaerobic organisms isolated 09/30/2024 3:[address] [facility] Abscess STRUCTURE OF LEFT KNEE REGION / Unknown Non Blood Collection / Unknown 09/26/2024 5:02 PM EST Comment:Left Below Knee popl iteal fluid Please perform Gram stain if not included in order Hayley Torres MD MICROBIOLOGY - GENER AL ORDERABLES [facility] [place] [address] * (ABNORMAL) Abscess/Wound Aspirate Culture, Aerobic Only (09/26/2024 5:02 PM EST) Abscess/Wound Aspirate Culture Many Methicillin Resistant Staphylococcus aureus(A) VITEK 2 METHOD 09/30/2024 1:[address] [facility] Gram Stain Many neutrophils(A) 09/30/2024 1:[address] [facility] Gram Stain Many Gram positive cocci(A) 09/30/2024 1:[address] [facility] Abscess STRUCTURE OF LEFT KNEE [...] Torres MD MICROBIOLOGY - GENER AL ORDERABLES [facility] [place] [address] * Fungus culture (09/26/2024 5:02 PM EST) Fungus Culture No fungus isolated 10/24/2024 7:[address] [facility] Abscess STRUCTURE OF LEFT KNEE REGION / Unknown Non Blood Collection / Unknown 09/26/2024 5:02 PM EST 09/26/2024 5:08 PM EST Comment:Left Below Knee popl iteal fluid Please perform Gram stain if not included in order Hayley Torres MD MICROBIOLOGY - GENER AL ORDERABLES [facility] [place] [address] * Anaerobic Culture (09/26/2024 4:50 PM EST) Anaerobic Culture No anaerobic organisms isolated 09/30/2024 3:[address] [facility] Abscess LEFT INGUINAL REGION STRUCTURE / Unknown Non Blood Collection / Unknown 09/26/2024 4:50 PM EST Comment:Left Groin Fluid Hayley Torres MD MICROBIOLOGY - GENER AL ORDERABLES Performing Organization Address [facility]/ZIP Co de Phone Number [facility] [place] [address] * (ABNORMAL) Abscess/Wound Aspirate Culture, Aerobic Only (09/26/2024 4:50 PM EST) Abscess/Wound Aspirate Culture Many Methicillin Resistant Staphylococcus aureus(A) VITEK 2 METHOD 09/30/2024 1:[address] [facility] Gram Stain Many neutrophils(A) 09/30/2024 1:[address] [facility] Gram Stain Many Gram positive cocci(A) 09/30/2024 1:[address] [facility] Abscess LEFT INGUINAL REGION STRUCTURE [...] - GENER AL ORDERABLES Performing Organization Address [facility] Co de Phone Number [facility] [place] [address] * Fungus culture (09/26/2024 4:50 PM EST) Fungus Culture No fungus isolated 10/24/2024 7:54 AM [facility] Abscess LEFT INGUINAL REGION STRUCTURE / Unknown Non Blood Collection / Unknown 09/26/2024 4:50 PM EST 09/26/2024 4:56 PM EST Comment:Left Groin Fluid Hayley Torres MD MICROBIOLOGY - GENER AL ORDERABLES Performing Organization Address [facility] Co de Phone Number [facility] [place] [address] * (ABNORMAL) Blood Gas, Arterial POC (09/26/2024 [...] 65 - 199 mg/dL 09/27/2024 7:41 AM [facility] Comment:Glucose Concentratio n >=200 mg/dL plus symptoms is consistent with Diabetes Mellitus. Blood ARTERIAL BLOOD / Unknown 09/26/2024 4:43 PM EST 09/27/2024 7:41 AM EST Marko Dickson MD POINT OF CARE TEST O RDERABLES [facility] [place] [address] * (ABNORMAL) POC, GLUCOSE (09/26/2024 4:29 PM EST) Glucometer, POC 213(H) 65 - 199 mg/dL 09/26/2024 4:[address] [facility] Comment:Supplemental ranges: <140 mg/dL before meals <180 mg/dL all other times of the day. Blood CAPILLARY BLOOD / Unknown 09/26/2024 4:29 PM EST 09/26/2024 4:30 PM EST Marko Dickson MD POINT OF CARE TEST O RDERABLES [facility] [place] [address] * (ABNORMAL) Blood Gas, Venous POC (09/26/2024 3:28 PM EST) pH, Venous 7.43(H) 7.32 - 7.42 09/26/2024 3:30 PM [facility] PCO2, Venous 41 38 - 58 mmHg 09/26/2024 3:30 PM [facility] PO2, Venous 18 16 - 65 mmHg 09/26/2024 3:30 PM [facility] Bicarbonate, Venous 26.6 22 - 31 mmol/L 09/26/2024 3:30 PM [facility] Base Excess, Venous 2.3 1.9 - [...] 0.4 <=1.5 % 09/26/2024 3:[address] [facility] Sodium, Venous 127(L) 135 - [...] MD POINT OF CARE TEST O RDERABLES [facility] [place] [address] * (ABNORMAL) Scan, Peripheral Blood (09/26/2024 2:39 PM EST) RBC Morphology Abnormal 09/26/2024 3:21 PM [facility] Platelet Estimate Normal Normal 09/26/2024 3:21 PM [facility] Microcyte 1-5 /HPF 09/26/2024 3:21 PM [facility] Platelet Clumps Present(A) (none) 3:21 PM [facility] WBC MORPHOLOGY See Comment(A) (none) 09/26/2024 3:[address] [facility] Comment:Dohle BodiesToxic Gr anulation Blood VENOUS BLOOD SPECIMEN / Unknown Venipuncture / Unknown 09/26/2024 2:39 PM EST 09/26/2024 2:50 PM EST Marko Dickson MD HEMATOLOGY ORDERABLE S [facility] [place] [address] * ABORH RECHECK (PATIENT HISTORY FOUND) (09/26/2024 2:39 PM EST) [facility] ABORH Recheck Progress Complete 09/26/2024 5:01 PM EST [facility] Blood VENOUS BLOOD SPECIMEN / Unknown Venipuncture / Unknown 09/26/2024 2:39 PM EST 09/26/2024 2:56 PM EST Marok Dickson MD BLOOD BANK LAB ORDER [facility] [place] [place] [address] * (ABNORMAL) Hepatic Function Panel (09/26/2024 2:39 PM EST) [facility] Albumin 3.1(L) 3.2 - 5.2 g/dL 09/26/2024 4:[address] [facility] Aspartate Aminotransferase 16 <=39 unit/L [...] - 8.0 g/dL 09/26/2024 4:[address] [facility] Blood VENOUS BLOOD SPECIMEN / Unknown Venipuncture / Unknown 09/26/2024 2:39 PM EST 09/26/2024 2:50 PM EST Marko Dickson MD CHEMISTRY ORDERABLES [facility] [place] [address] * (ABNORMAL) Basic Metabolic Panel (09/26/2024 2:39 PM EST) Glucose 254(H) 65 - 199 mg/dL 09/26/2024 4:[address] [facility] Comment:Glucose Concentratio n [...] 3.5 - 5.0 mMol/L 09/26/2024 4:32 PM [facility] Chloride 89(L) 98 - 107 mMol/L 09/26/2024 4:32 PM [facility] Carbon Dioxide 25 22 - 31 mMol/L 09/26/2024 4:32 PM [facility] Anion Gap 13 5 - 15 mMol/L 09/26/2024 4:32 PM [facility] Calcium 8.9 8.5 - 10.5 mg/dL 09/26/2024 4:32 PM [facility] Est Glomerular Filtration Rate - Male 121 mL/min/1. 73 m?? 09/26/2024 4:32 PM [facility] Comment: This patient's [...] PM EST Hayley Torres MD CHEMISTRY ORDERABLES [facility] [place] [address] * (ABNORMAL) CBC (with Diff) (09/26/2024 2:39 PM EST) White Blood Cell 22.76(H) 4.00 - 9.50 x10(3)/mc L 09/26/2024 3:[address] [facility] Red Blood Cell 4.20(L) 4.58 - 5.54 x10(6)/mc L 09/26/2024 3:[address] [facility] Hemoglobin 12.3(L) 13.7 - 16.5 [...] - 0.90 x10(3)/mc L 09/26/2024 3:[address] [facility] Comment:This is an appended report. These results have been appended to a previously preliminary verified report. Eos % 0.0 % 09/26/2024 3:[address] [facility] Comment:This is an appended report. These results have been appended to a previously preliminary verified report. Eos Absolute <0.04 0.00 - 0.40 x10(3)/mc L 09/26/2024 3:[address] [facility] Comment:This is an appended report. These results have been appended to a previously preliminary verified report. Basophil % 0.5 % 09/26/2024 3:21 PM [facility] Comment:This is an appended report. These results have been appended to a previously preliminary verified report. Baso Absolute 0.11(H) 0.00 - 0.10 x10(3)/mc L 09/26/2024 3:[address] [facility] Comment:This is an appended report. These results have been appended to a previously preliminary verified report. Immature Gran % 1.2 % 3:[address] [facility] Comment:This is an appended report. These results have been appended to a previously preliminary verified report. Immature Gran Absolute 0.28(H) 0.00 - 0.04 x10(3)/mc L 09/26/2024 3:[address] [facility] Comment:This is an appended report. These results have been appended to a previously preliminary verified report. Blood VENOUS BLOOD SPECIMEN / Unknown Venipuncture / Unknown 09/26/2024 2:39 PM EST 09/26/2024 2:50 PM EST Hayley Torres MD HEMATOLOGY ORDERABLE S [facility] [place] [address] * Phosphorus (09/26/2024 2:39 PM EST) Phosphorus 3.2 2.5 - 4.5 mg/dL 09/26/2024 4:[address] [facility] Blood VENOUS BLOOD SPECIMEN / Unknown Venipuncture / Unknown 09/26/2024 2:39 PM EST 09/26/2024 2:50 PM EST Marko Dickson MD CHEMISTRY ORDERABLES [facility] [place] [address] * (ABNORMAL) Magnesium (09/26/2024 2:39 PM EST) [facility] Magnesium 0.65(L) 0.69 - 1.07 mMol/L 09/26/2024 4:[address] [facility] Blood VENOUS BLOOD SPECIMEN / Unknown Venipuncture / Unknown 09/26/2024 2:39 PM EST 09/26/2024 2:50 PM EST Marko Dickson MD CHEMISTRY ORDERABLES Performing Organization Address City/[facility]/ZIP Co de Phone Number [facility] [place] [address] * Type and screen ([facility]/CGP/BABITA) (09/26/2024 2:39 PM EST) [facility] ABORH Type A POSITIVE 09/26/2024 3:45 PM EST [facility] PATIENT HISTORY Found 09/26/2024 3:45 PM EST [facility] Expires at [id number] on: 09/29/2024 09/26/2024 3:45 PM EST [facility] ANTIBODY SCREEN AUTOMATED Negative 09/26/2024 3:45 PM EST [facility] T&S only valid at [facility] 09/26/2024 3:45 PM EST [facility] Blood VENOUS BLOOD SPECIMEN / Unknown Venipuncture / Unknown 09/26/2024 2:39 PM EST 09/26/2024 2:56 PM EST Narrative [facility] - 09/26/2024 3:45 PM EST This Type and Screen result is only valid at the [facility] Marko Dickson MD BLOOD BANK LAB ORDER RANDELL Performing Organization Address City/[facility]/ZIP Co de Phone Number [facility] [place] [place] [address] * (ABNORMAL) Fibrinogen (09/26/2024 2:39 PM EST) Fibrinogen >1,000(H) 200 - 393 mg/dL 09/26/2024 3:[address] [facility] Comment: A fibrinogen level >100 mg/dL is adequate for hemostasis in most patients without underlying bleeding disorders. Blood VENOUS BLOOD SPECIMEN / Unknown Venipuncture / Unknown 09/26/2024 2:39 PM EST 09/26/2024 2:50 PM EST Marko Dickson MD HEMATOLOGY ORDERABLE S Performing Organization Address [facility] Co de Phone Number [facility] [place] [address] * APTT (09/26/2024 2:39 PM EST) Partial Thromboplastin Time 36 25 - 37 sec 09/26/2024 3:[address] [facility] Comment: The PTT is NOT appropriate for heparin monitoring. Use the Anti-Xa level for heparin monitoring (HEP UFH) or LMWH monitoring (HEP LMW). A PTT less than 37 seconds generally indicates adequate hemostasis. Blood VENOUS BLOOD SPECIMEN / Unknown Venipuncture / Unknown 09/26/2024 2:39 PM EST 09/26/2024 2:50 PM EST Marko Dickson MD HEMATOLOGY ORDERABLE S [facility] [place] [address] * (ABNORMAL) Prothrombin Time (09/26/2024 2:39 PM EST) Prothrombin Time 21.6(H) 9.4 - 12.5 sec 09/26/2024 3:[address] [facility] International Normalization Ratio 1.9 <=4.9 09/26/2024 3:[address] [facility] Comment: An INR < 2.0 [...] EST Marko Dickson MD HEMATOLOGY ORDERABLE S [facility] [place] [address] * (ABNORMAL) POC, GLUCOSE (09/26/2024 2:36 PM EST) Glucometer, POC 268(H) 65 - 199 mg/dL 09/26/2024 2:[address] [facility] Comment:Supplemental ranges: <140 mg/dL before meals <180 mg/dL all other times of the day. Blood CAPILLARY BLOOD / Unknown 09/26/2024 2:36 PM EST 09/26/2024 2:36 PM EST Marko Dickson MD POINT OF CARE TEST O RDERABLES [facility] [place] [address] * (ABNORMAL) Blood culture (09/26/2024 2:22 PM EST) Blood Culture Methicillin Resistant Staphylococcus aureus(Critical) VITEK 2 METHOD 10/07/2024 7:[address] [facility] Comment: detected by PCR Isolate saved. If future testing is required, contact the Microbiology Pourer [employer]. Gram Stain Aerobic Bottle: Gram positive cocci in clusters(Critical ) 10/07/2024 7:[address] [facility] Blood VENOUS BLOOD [...] MICROBIOLOGY - BLOOD ORDERABLES Performing Organization Address City/State/[facility] Co de Phone Number [facility] [place] [address] * Request For 2nd Read CT Lower Extremity (09/26/2024 1:50 PM EST) AudioCatch Signature WORKSTATION ID [id number] [facility] Anatomical Region Laterality Modality Hip, Leg, Knee, [...] have questions please contact the health care aid that requested your imaging first. ? Electronically signed by: Lisette Bruno MD, [facility] ([phone]), at 09/26/2024 3:01 PM Narrative 09/26/2024 3:01 PM EST EXAMINATION: REQUEST FOR 2ND READ CT LOWER EXTREMITY CLINICAL HISTORY: Pt s/p LLE femoral-below knee popliteal bypass with PTFE graft, c/f infection surrounding graft, en route to [facility] for possible vascular surgery intervention; Sending Institution [facility]; Date of exam [id number]; I believe [...] c/f infection surrounding graft, en route to [facility] for possiblevascular surgery intervention; Sending Institution [facility]; Date of exam [id number]; Ibelieve a [...] who have questions please contactthe health care aid that requested your imaging first. Electronically signed by: Lisette Bruno MD, [facility]([phone]), at 09/26/2024 3:01 PM Marko Dickson MD IMG OUTSIDE [facility] TATION ORDERABLES documented in this encounter Visit [...] Jordyn Navas RN)0616 (Given - Provider: Jordyn Navas, DAVID)1222 (Given - Provider: Indira Tracey RN)1708 (Given [...] Navas, DAVID)1415 (Given - Provider: Indira Tracey RN)211 (Given - Provider: Lauren Zavala RN) 0605 (Given - Provider: Lauren Zavala, RN)1446 (Given - Provider: Terell Araiza RN) [...] Discontinued, Routine 0859 (Given - Provider: Indira Tarcey RN) 09 (Given - Provider: Jaja Diallo, DAVID) 0832 (Given - Provider: Terell Araiza, RN) magnesium oxide (Mag-Ox) tablet 400 mg [...] Zavala RN)1107 (Given - Provider: Terell Araiza, RN)1632 (Given - Provider: Terell Araiza RN) [...] Patient/family refused) 0900 (Not Given - Provider: Treell Araiza RN - Reason: Patient/family refused) protriptyline [...] 2027 (Given - Provider: Jordyn Navas RN) 0628 (See Alternative - Provider: Jordyn Navas RN) [...] Routine documented in this encounter Care Teams Laundry Operator Wash Room Relationship Specialty Start Date End Date Charles Romero [place] [address] PCP - General Internal Medicine 09/18/24 documented as of this encounter
--- OUTSIDE RECORDS SUMMARY | 2024-10-31 15:37 | XMS_ITS | Encounter Summary ---
Author Organization Formerly [facility] [place] [address] Care Team Providers Care Dental Treatment Coordinator Name Role Phone Charles Romero Primary Care Provider + Reason for Visit * Auth/Cert (Routine) Specialty Diagnoses / Procedures Referred By William moses Referred To Contact Diagnoses Vascular graft infection, initial encounter Sepsis [A41.9] T82.7XXA Procedures EMERGENCY IPI Angel Gonsalez MD [facility] [place] [address] [facility] Referral ID Status Reason Start Date Expiration Date Visits Re quested Visits Authorized [id number] 1 1 Encounter Details Date Type Department Care Team (Late st Contact Info) Description 09/28/2024 10:25 AM EST - 09/28/2024 12:15 PM EST Surgery [place] [address] Hayley Torres MD [facility] [place] [address] REV. FEM. ANASTOMOSIS OF SYN. BYPASS GRAFT USING NONAUTOGENOUS PATCH ANGIOPLASTY-JENNIFER (WRVU 23.15) Social History Tobacco Use Types Packs/Day Years Used Date Smoking Tobacco: Every Day Cigarettes 12 02 Started: 12/28/1986; Last attempted to quit: 12/28/2011 Smokeless Tobacco: Never Alcohol Use Standard Drinks/Week Comments No 0 (1 standard drink = 0.6 oz pur e alcohol) [facility] Utilities Answer Date Recorded In [...] time in the past 12 m [address] [place], were you homeless or living in a [...] Operations/Major Procedures: 09/26/24: Explant of infected LEFT TELEPHONE DIRECTORY DELIVERER to below-knee popliteal artery PTFE bypass graft [...] amputation who was transferred from [facility] given concern for infected left fem-BK [...] pericardial patch and PTFE willard over the TELEPHONE DIRECTORY DELIVERER was unincorporated. - Resection of prior femoral [...] 2 tablespoons of dried fruit. Milk and xk-uvbii-nxwjw yogurt have 15 grams of carbs in a serving. A serving is 1 cup of milk or 3/4 cup (6 oz) of te-oszcy-eoazw yogurt. Starchy vegetables have 15 grams of carbs in a serving. A serving is ?? cup of mashed potatoes or sweet potato; 1 cup winter squash; ?? of a small baked potato; ?? cup of cooked beans; or ?? cup cooked corn or green peas. Learn how much carbs to eat each day and at each meal. A dietitian or certified professional coder can teach you how to keep track [...] was scheduled for a f/u nutrition evaluation. Commercial Correspondent met pt at bedside. Pt sharedthat his [...] Based on current findings- home (sister & jwyvrwa-di-css's home) Consult Recommendations: No other consults recommended [...] None Karolyn E Tristan, MD Vascular Surgery, 3663 10/09/24 Important Studies and Lab Data: Labs: [...] 05/29/2024, no significant changes. Procedure Limited - 32296. Doppler - 07948. Color Doppler - 71086. Suboptimal quality. This study is limited because [...] on series 3, image 8 and 641, 902, 546, 272. No other rim-enhancing fluid collection is seen. [...] Department Dept Phone 10/19/2024 2:30 PM Isabela Hyaward APRN Infectious Disease at [facility] Arrive at: Home [phone] To view instructions for your video visit, click here, or visit this website: [email or web address] If you have not previously downloaded the [facility] patient portal software, Smarterphone, please do so by clicking one of the links below or searching in your device's lobito store. [employer] devices 11/09/2024 1:30 PM Isabela Hayward APRN Infectious Disease at [facility] Arrive at: Clearing House Clerk Area [phone] 11/21/2024 2:15 PM Dayanara Grover MD Endocrinology at [facility] Arrive at: Clearing House Clerk Area 3A [phone] Future Orders Complete By Expires CBC (with Diff) [OKP089 Custom] 10/17/2024 12/11/2024 Process Instructions: INCLUDES: WBC, RBC, Hgb, Hct, Platelets, RBC Indices and Differential Scheduling Instructions: Comments: Questions: OPAT: Order / Recommendation for Post Discharge IV Antibiotic Management [LZE037 CPT(R)] As directed Process Instructions: If no progress note charted, please enter Clinical details in comments. Scheduling Instructions: Comments: - If this order was signed greater than 72 hours prior to [facility] discharge, please call to confirm the accuracy of this order. Please Fax all results to: [facility] Program Infectious Disease Section [facility], [place] [address] FAX: - After hours, please contact the Infectious Disease Physician cassandra consultant at . - Line care instructions - see flush/heparin orders. Facilities may follow organizational policies/practices regarding heparin. - long-term for medication administration/jammer hooker and catheter care/maintenance authorized. - CVC/PICC Dressing Change weekly and PRN Please use CHG or Bio Patch RN: Please care for PICC line including dressing changes weekly and prn. Please draw labs every Wednesday and PRN and fax results to [facility] at [phone]. Please draw labs off PICC line. Please see [facility] for lab draw details. Please RN visit for IV ABX teaching and ongoing assessment. Half-Way for Medication Administration/Hookup and catheter care/maintenance: - [...] Amaya Hernandez MD Referral for Outpatient Antibiotics [INB7359 CPT(R)] As directed Process Instructions: Scheduling Instructions: [...] Jr. for admission to Home Health. [address] [facility] [address] Phone Number: [phone] (home) Date of : 1975 Inpatient DOCUMENTATION FOR VNA SERVICES (INCLUDING THOSE PATIENTS WITH MEDICARE COVERAGE REQUIRING HOME VNA SERVICES AND/OR HOSPICE SERVICES) PATIENT'S LOCATION: Geovanna Dixon Jr. [address] [facility] [address] [phone] (home) Cell: Telephone Information: Boiler Operators Supervisor's Name: Geovanna In discussion with the attending physician, it is certified that this patient is under their care and that they, or a Nurse Practitioner, Clinical Nurse specialist or Physician Plating Tank Operator Apprentice who is working directly with them, had [...] for managing ADLs. HOME HEALTH CARE AGENCY: [facility]. [address] [place] [address] START OF CARE: within 24-48 hours of discharge Patient has Medicare Please note that any additional orders needs or changes will need to be obtained from this patient's PCP: JUSTIN Roberson [address] [facility] [address] . All VNA agencies which cover the area of patient's residence have been reviewed, either verbally or in writing, andpatient/family have chosen the home health care agency noted. Questions: Disciplines Requested: Nursing Physical Therapy Occupational Therapy Recurring Lab Work Interval Expires CBC (with Diff) [[id number] Custom] Once a week until 12/10/2024 12/10/2024 [...] For any problems or questions please call [phone] For issues on weeknights after 5pm and weekends please call [phone] and ask for the Vascular Fellow cassandra consultant. Discharge Medications: Your Medications New Medications [...] - See Instructions). FLUSH PROTOCOL WITH MEDICATIONS ([facility]): Before med infusion: flush with [...] can get this completed at 3L at [facility] prior to your scheduled appointment. [...] For any problems or questions please call [phone] For issues on weeknights after 5pm and weekends please call [phone] and ask for the Vascular Fellow cassandra consultant. documented in this encounter Discharge Instructions [...] 2 tablespoons of dried fruit. Milk and vw-eogxm-hntya yogurt have 15 grams of carbs in a serving. A serving is 1 cup of milk or 3/4 cup (6 oz) of xp-xhwpq-zxkaw yogurt. Starchy vegetables have 15 grams of carbs in a serving. A serving is ?? cup of mashed potatoes or sweet potato; 1 cup winter squash; ?? of a small baked potato; ?? cup of cooked beans; or ?? cup cooked corn or green peas. Learn how much carbs to eat each day and at each meal. A dietitian or certified professional coder can teach you how to keep track [...] can get this completed at 3L at [facility] prior to your scheduled appointment. [...] For any problems or questions please call [phone] For issues on weeknights after 5pm and weekends please call [phone] and ask for the Vascular Fellow cassandra consultant. documented in this encounter Medications at [...] - See Instructions). FLUSH PROTOCOL WITH MEDICATIONS ([facility]): Before med infusion: flush with [...] - See Instructions). FLUSH PROTOCOL WITH MEDICATIONS ([facility]): Before med infusion: flush with [...] to contact. Reviewed roles and responsibilities of COMPOUND MACHINE OPERATOR and infusion vendor. Contact information for ID and Vascular team/clinic, COMPOUND MACHINE OPERATOR and infusion vendor given to pt. Discussed f/u appointments in ID 5C clinic, telephone and tele health. Pt verbalized understanding. All questions answered. IV & PO ABX Medications: Daptomycin 700mg IV daily Start/anticipated end date: 10/10/24-11/10/24 COMPOUND MACHINE OPERATOR: Geary Infusion vendor: [facility] IV Access: 4 Fr. single lumen [...] 2 tablespoons of dried fruit. Milk and hk-vzxoc-aowtu yogurt have 15 grams of carbs in a serving. A serving is 1 cup of milk or 3/4 cup (6 oz) of pp-vrqth-zpwvy yogurt. Starchy vegetables have 15 grams of carbs in a serving. A serving is ?? cup of mashed potatoes or sweet potato; 1 cup winter squash; ?? of a small baked potato; ?? cup of cooked beans; or ?? cup cooked corn or green peas. Learn how much carbs to eat each day and at each meal. A dietitian or certified professional coder can teach you how to keep track [...] this time. OT to complete orders. Pager: [phone] Fabián Burrows OT 10/09/2024 Occupational Therapy Rehabilitation [...] Loss: None Karolyn Hudson MD Vascular Surgery, 7155 10/09/24 * Terry Jimenez, PT - 10/09/2024 12:02 PM EST Physical Therapy Visit #2 Patient profile: Geovanna Dixon Jr. is a 49 y.o. male with a history of HTN, HLD, NSTEMI, CAD s/p CABG (12/2011), DM,obesity, PAD s/p L iliofem endart and L fem-BK pop bypass and L 2nd toe amputation who was transferred from [facility], 09/26/24 given concern for infected left fem-BK popliteal PTFE bypass. 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 10/03/24 NPO at [facility] for OR wound exploration. Wound [...] He mentions he'll stay with sister and ktzjssu-if-nyh upon DC. Pt resting in bed upon [...] up with R and down with L, pjdg-oo-sjkh. Balance: Sitting: NORMAL- EOB unsupported good postural [...] Based on current findings- home (sister & fxhbmnm-pu-gzb's home) Consult Recommendations: No other consults recommended [...] 15 (TE-F) minutes TERRY JIMENEZ PT Pager: [phone] Physical Therapy Inpatient Rehabilitation Department * María Carranza, [employer] [place] - 10/09/2024 11:14 AM EST Images from the original note were not included. Vascular Surgery Progress Note Geovanna Dixon Jr. is a 49 y.o. male with history of HTN, HLD, NSTEMI, CAD s/p CABG (12/2011), DM, obesity, PAD s/p L iliofem endart and L fem-BK pop bypass and L 2nd toe amputation who was transferred from [facility] given concern for infected left fem-BK [...] smoking 1 week ago. He presented to [facility] on 09/26 and went to [...] Daily heparin (porcine) 5,000 Units Subcutaneous Q8H [facility] lidocaine 1 patch Transdermal Q24H Operations this [...] Procedure Component Value - Date/Time Blood culture [[id number]] (Abnormal) (Susceptibility) Collected: 09/26/24 1422 Lab Status: Edited Result - FINAL Specimen: Blood, Venous Updated: 10/07/24 0740 Blood Culture Methicillin Resistant Staphylococcus aureus Comment: detected by PCR Isolate saved. If future testing is required, contact the Microbiology Fulling Machine Operator. Gram Stain Aerobic Bottle: Gram positive cocci in clusters Susceptibility Methicillin Resistant Staphylococcus aureus MINIMUM INHIBITORY CONCENTRATION VITEK 2 METHOD Clindamycin Resistant Daptomycin Susceptible Gentamicin Susceptible [1] Linezolid Susceptible Oxacillin Resistant Trimethoprim/Sulfa Susceptible Vancomycin Susceptible [1] Gentamicin is not appropriate for monotherapy for gram-positive infections. AFB culture [[id number]] Collected: 09/27/24 1654 Lab Status: Preliminary result Specimen: Tissue from Thigh, Left Updated: 10/05/24 1201 Acid Fast Bacilli Culture No acid fast bacilli isolated at 1 week. Acid Fast Stain No acid fast bacilli seen Blood culture [[id number]] Collected: 09/29/242123 Lab Status: Final result Specimen: Blood, Venous Updated: 10/04/24 2301 Blood Culture No growth at 120 hours Blood culture [[id number]] Collected: 09/29/242123 Lab Status: Final result Specimen: Blood, Venous Updated: 10/04/24 2301 Blood Culture No growth at 120 hours AFB culture [[id number]] Collected: 09/26/24 1702 Lab Status: Preliminary result Specimen: Abscess from Knee, Left Updated: 10/04/24 1201 Acid Fast Bacilli Culture No acid fast bacilli isolated at 1 week. Acid Fast Stain No acid fast bacilli seen Blood culture [[id number]] Collected: 09/28/24 1749 Lab Status: Final result [...] amputation who was transferred from [facility] given concern for infected left fem-BK popliteal PTFE bypass. 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 10/09/24: Progressing well post surgically. Will pull medial thigh drain today, retain sartorius flap drain along with wound vac x 3 sponges ([facility] has approved for home vac) and WTD [...] PRN PICC dressing change completed as per [facility] protocol. Positive pressure displacement connector [...] amputation who was transferred from [facility] given concern for infected left fem-BK [...] smoking 1 week ago. He presented to [facility] on 09/26 and went to [...] Procedure Component Value - Date/Time Blood culture [[id number]] (Abnormal) (Susceptibility) Collected: 09/26/24 1422 Lab Status: Edited Result - FINAL Specimen: Blood, Venous Updated: 10/07/24 0740 Blood Culture Methicillin Resistant Staphylococcus aureus Comment: detected by PCR Isolate saved. If future testing is required, contact the Microbiology Fulling Machine Operator. Gram Stain Aerobic Bottle: Gram positive cocci in clusters Susceptibility Methicillin Resistant Staphylococcus aureus MINIMUM INHIBITORY CONCENTRATION VITEK 2 METHOD Clindamycin Resistant Daptomycin Susceptible Gentamicin Susceptible [1] Linezolid Susceptible Oxacillin Resistant Trimethoprim/Sulfa Susceptible Vancomycin Susceptible [1] Gentamicin is not appropriate for monotherapy for gram-positive infections. AFB culture [[id number]] Collected: 09/27/24 165 Lab Status: Preliminary result Specimen: Tissue from Thigh, Left Updated: 10/05/24 1201 Acid Fast Bacilli Culture No acid fast bacilli isolated at 1 week. Acid Fast Stain No acid fast bacilli seen Blood culture [[id number]] Collected: 09/29/242123 Lab Status: Final result Specimen: Blood, Venous Updated: 10/04/24 2301 Blood Culture No growth at 120 hours Blood culture [[id number]] Collected: 09/29/242123 Lab Status: Final result Specimen: Blood, Venous Updated: 10/04/24 2301 Blood Culture No growth at 120 hours AFB culture [[id number]] Collected: 09/26/24 1702 Lab Status: Preliminary result Specimen: Abscess from Knee, Left Updated: 10/04/24 1201 Acid Fast Bacilli Culture No acid fast bacilli isolated at 1 week. Acid Fast Stain No acid fast bacilli seen Blood culture [[id number]] Collected: 09/28/24 1749 Lab Status: Final result Specimen: Blood, Venous Updated: 10/03/24 1901 Blood Culture No growth at 120 hours Blood culture [[id number]] (Abnormal) Collected: 09/27/24 2133 Lab Status: Final result Specimen: Blood, Venous Updated: 10/02/24 0804 Blood Culture Methicillin Resistant Staphylococcus aureus Comment: Susceptibilities previously reported. Gram Stain Aerobic Bottle: Gram positive cocci in clusters Tissue Culture, Aerobic & Anaerobic [[id number]] Collected: 09/27/24 165 Lab Status: Final result Specimen: Tissue from Thigh, Left Updated: 10/01/24 1554 Narrative: The following orders were created for panel order Tissue Culture, Aerobic & Anaerobic. Procedure Abnormality Status --------- ------ Tissue Culture, Aerobic ...[[id number]] Anaerobic Culture[[id number]] Final result Please view results for these tests on the individual orders. Anaerobic Culture [[id number]] Collected: 09/27/241653 Lab Status: Final result Specimen: Tissue from Thigh, Left Updated: 10/01/24 1554 Anaerobic Culture No anaerobic organisms isolated Tissue Culture, Aerobic Only [[id number]] (Abnormal) (Susceptibility) Collected: 09/27/241653 Lab Status: Final [...] amputation who was transferred from [facility] given concern for infected left fem-BK popliteal PTFE bypass. He is now s/p an explantof an infected left femoral-below knee popliteal artery bypass graft (09/26), I/D groin abscess (), L GSV harvest, vein patch angioplasty, L TELEPHONE DIRECTORY DELIVERER and BK pop w/ sartorius flap L [...] 81mg daily Vibha Benson APRN 10/08/2024 Pager: [phone] * Vibha Benson APRN - 10/07/2024 8:52 AM EST Images from the original note were not included. Vascular Surgery Progress Note Geovanna Dixon Jr. is a 49 y.o. male with history of HTN, HLD, NSTEMI, CAD s/p CABG (12/2011), DM, obesity, PAD s/p L iliofem endart and L fem-BK pop bypass and L 2nd toe amputation who was transferred from [facility] given concern for infected left fem-BK [...] smoking 1 week ago. He presented to [facility] on 09/26 and went to [...] Procedure Component Value - Date/Time Blood culture [[id number]] (Abnormal) (Susceptibility) Collected: 09/26/24 1422 Lab Status: Edited Result - FINAL Specimen: Blood, Venous Updated: 10/07/24 0740 Blood Culture Methicillin Resistant Staphylococcus aureus Comment: detected by PCR Isolate saved. If future testing is required, contact the Microbiology Fulling Machine Operator. Gram Stain Aerobic Bottle: Gram positive cocci in clusters Susceptibility Methicillin Resistant Staphylococcus aureus MINIMUM INHIBITORY CONCENTRATION VITEK 2 METHOD Clindamycin Resistant Daptomycin Susceptible Gentamicin Susceptible [1] Linezolid Susceptible Oxacillin Resistant Trimethoprim/Sulfa Susceptible Vancomycin Susceptible [1] Gentamicin is not appropriate for monotherapy for gram-positive infections. AFB culture [[id number]] Collected: 09/27/24 165 Lab Status: Preliminary result Specimen: Tissue from Thigh, Left Updated: 10/05/24 1201 Acid Fast Bacilli Culture No acid fast bacilli isolated at 1 week. Acid Fast Stain No acid fast bacilli seen Blood culture [[id number]] Collected: 09/29/242123 Lab Status: Final result Specimen: Blood, Venous Updated: 10/04/24 2301 Blood Culture No growth at 120 hours Blood culture [[id number]] Collected: 09/29/242123 Lab Status: Final result Specimen: Blood, Venous Updated: 10/04/24 2301 Blood Culture No growth at 120 hours AFB culture [[id number]] Collected: 09/26/24 1702 Lab Status: Preliminary result Specimen: Abscess from Knee, Left Updated: 10/04/24 1201 Acid Fast Bacilli Culture No acid fast bacilli isolated at 1 week. Acid Fast Stain No acid fast bacilli seen Blood culture [[id number]] Collected: 09/28/24 1749 Lab Status: Final result Specimen: Blood, Venous Updated: 10/03/24 1901 Blood Culture No growth at 120 hours Blood culture [[id number]] (Abnormal) Collected: 09/27/24 2133 Lab Status: Final result Specimen: Blood, Venous Updated: 10/02/24 0804 Blood Culture Methicillin Resistant Staphylococcus aureus Comment: Susceptibilities previously reported. Gram Stain Aerobic Bottle: Gram positive cocci in clusters Tissue Culture, Aerobic & Anaerobic [[id number]] Collected: 09/27/24 165 Lab Status: Final result Specimen: Tissue from Thigh, Left Updated: 10/01/24 1554 Narrative: The following orders were created for panel order Tissue Culture, Aerobic & Anaerobic. Procedure Abnormality Status --------- ------ Tissue Culture, Aerobic ...[[id number]] Anaerobic Culture[[id number]] Final result Please view results for these tests on the individual orders. Anaerobic Culture [[id number]] Collected: 09/27/241653 Lab Status: Final result Specimen: Tissue from Thigh, Left Updated: 10/01/24 155 Anaerobic Culture No anaerobic organisms isolated Tissue Culture, Aerobic Only [[id number]] (Abnormal) (Susceptibility) Collected: 09/27/241653 Lab Status: Final [...] is considered susceptible to doxycycline. Blood culture [[id number]] (Abnormal) Collected: 09/26/24 1845 Lab Status: Final result Specimen: Blood, Venous Updated: 10/01/24 0658 Blood Culture Methicillin Resistant Staphylococcus aureus Comment: isolated. Susceptibilities previously reported. Gram Stain Aerobic Bottle: Gram positive cocci in clusters Abscess/Wound Aspirate Culture, Aerobic & Anaerobic [[id number]] (Abnormal) Collected: 09/26/241649 Lab Status: Final result Specimen: Abscess from Groin, Left Updated: 09/30/24 1551 Narrative: The following orders were created for panel order Abscess/Wound Aspirate Culture, Aerobic & Anaerobic. Procedure Abnormality Status --------- ------ Abscess/Wound Aspirate C...[[id number]] Abnormal Final result Anaerobic Culture[[id number]] Final result Please view results for these tests on the individual orders. Anaerobic Culture [[id number]] Collected: 09/26/241649 Lab Status: Final result Specimen: Abscess from Groin, Left Updated: 09/30/24 1551 Anaerobic Culture No anaerobic organisms isolated Abscess/Wound Aspirate Culture, Aerobic & Anaerobic [[id number]] (Abnormal) Collected: 09/26/24 1702 Lab Status: Final result Specimen: Abscess from Knee, Left Updated: 09/30/24 1551 Narrative: The following orders were created for panel order Abscess/Wound Aspirate Culture, Aerobic & Anaerobic. Procedure Abnormality Status --------- ------ Abscess/Wound Aspirate C...[[id number]] Abnormal Final result Anaerobic Culture[[id number]] Final result Please view results for these tests on the individual orders. Anaerobic Culture [[id number]] Collected: 09/26/24 1702 Lab Status: Final result Specimen: Abscess from Knee, Left Updated: 09/30/24 1551 Anaerobic Culture No anaerobic organisms isolated Sonicated Tissue/Implant Culture [[id number]] (Abnormal) Collected: 09/26/24 1716 Lab Status: Final result Specimen: Vascular Graft from Leg, Left Updated: 09/30/24 1349 Sonicated Tissue/Implant Culture Methicillin Resistant Staphylococcus aureus Comment: isolated from broth culture. Susceptibilities previously reported. Abscess/Wound Aspirate Culture, Aerobic Only [[id number]] (Abnormal) (Susceptibility) Collected: 09/26/24 170 Lab Status: [...] to doxycycline. Abscess/Wound Aspirate Culture, Aerobic Only [[id number]] (Abnormal) (Susceptibility) Collected: 09/26/24 1650 Lab Status: [...] New Studies: - None Assessment & Plan: Goevanna Dixon Jr. is a 49 y.o. male with a history of HTN, HLD, NSTEMI, CAD s/p CABG (12/2011), DM,obesity, PAD s/p L iliofem endart and L fem-BK pop bypass and L 2nd toe amputation who was transferred from [facility] given concern for infected left fem-BK popliteal PTFE bypass. He is now s/p an explantof an infected left femoral-below knee popliteal artery bypass graft (09/26), I/D groin abscess (), L GSV harvest, vein patch angioplasty, L TELEPHONE DIRECTORY DELIVERER and BK pop w/ sartorius flap L [...] 81mg daily Vibha Benson APRN 10/07/2024 Pager: [phone] * Karina-Jessica Mcrae, PT - 10/06/2024 3:21 PM EST 10/06/24 7510 Evaluation & Treatment Document Type contact Comment, [...] amputation who was transferred from [facility] given concern for infected left fem-BK [...] smoking 1 week ago. He presented to [facility] on 09/26 and went to [...] Procedure Component Value - Date/Time AFB culture [[id number]] Collected: 09/27/241653 Lab Status: Preliminary result Specimen: Tissue from Thigh, Left Updated: 10/05/24 1201 Acid Fast Bacilli Culture No acid fast bacilli isolated at 1 week. Acid Fast Stain No acid fast bacilli seen Blood culture [[id number]] Collected: 09/29/242123 Lab Status: Final result Specimen: Blood, Venous Updated: 10/04/24 2301 Blood Culture No growth at 120 hours Blood culture [[id number]] Collected: 09/29/242123 Lab Status: Final result Specimen: Blood, Venous Updated: 10/04/24 2301 Blood Culture No growth at 120 hours AFB culture [[id number]] Collected: 09/26/24 1702 Lab Status: Preliminary result Specimen: Abscess from Knee, Left Updated: 10/04/24 1201 Acid Fast Bacilli Culture No acid fast bacilli isolated at 1 week. Acid Fast Stain No acid fast bacilli seen Blood culture [[id number]] Collected: 09/28/24 1749 Lab Status: Final result Specimen: Blood, Venous Updated: 10/03/24 1901 Blood Culture No growth at 120 hours Blood culture [[id number]] (Abnormal) Collected: 09/27/242132 Lab Status: Final result Specimen: Blood, Venous Updated: 10/02/24 0804 Blood Culture Methicillin Resistant Staphylococcus aureus Comment: Susceptibilities previously reported. Gram Stain Aerobic Bottle: Gram positive cocci in clusters Tissue Culture, Aerobic & Anaerobic [[id number]] Collected: 09/27/241653 Lab Status: Final result Specimen: Tissue from Thigh, Left Updated: 10/01/24 1554 Narrative: The following orders were created for panel order Tissue Culture, Aerobic & Anaerobic. Procedure Abnormality Status --------- ------ Tissue Culture, Aerobic ...[[id number]] Anaerobic Culture[[id number]] Final result Please view results for these tests on the individual orders. Anaerobic Culture [[id number]] Collected: 09/27/241653 Lab Status: Final result Specimen: Tissue from Thigh, Left Updated: 10/01/24 1554 Anaerobic Culture No anaerobic organisms isolated Tissue Culture, Aerobic Only [[id number]] (Abnormal) (Susceptibility) Collected: 09/27/24 1654 Lab Status: [...] is considered susceptible to doxycycline. Blood culture [[id number]] (Abnormal) (Susceptibility) Collected: 09/26/24 1422 Lab Status: Edited Specimen: Blood, Venous Updated: 10/01/24 0658 Blood Culture Methicillin Resistant Staphylococcus aureus Comment: detected by PCR Isolate saved. If future testing is required, contact the Microbiology Fulling Machine Operator. Gram Stain Aerobic Bottle: Gram positive cocci in clusters Susceptibility Methicillin Resistant Staphylococcus aureus VITEK 2 METHOD Clindamycin Resistant Gentamicin Susceptible [1] Linezolid Susceptible Oxacillin Resistant Trimethoprim/Sulfa Susceptible Vancomycin Susceptible [1] Gentamicin is not appropriate for monotherapy for gram-positive infections. Blood culture [[id number]] (Abnormal) Collected: 09/26/24 1845 Lab Status: Final result Specimen: Blood, Venous Updated: 10/01/24 0658 Blood Culture Methicillin Resistant Staphylococcus aureus Comment: isolated. Susceptibilities previously reported. Gram Stain Aerobic Bottle: Gram positive cocci in clusters Abscess/Wound Aspirate Culture, Aerobic & Anaerobic [[id number]] (Abnormal) Collected: 09/26/24 165 Lab Status: Final result Specimen: Abscess from Groin, Left Updated: 09/30/24 1551 Narrative: The following orders were created for panel order Abscess/Wound Aspirate Culture, Aerobic & Anaerobic. Procedure Abnormality Status --------- ------ Abscess/Wound Aspirate C...[[id number]] Abnormal Final result Anaerobic Culture[[id number]] Final result Please view results for these tests on the individual orders. Anaerobic Culture [[id number]] Collected: 09/26/24 165 Lab Status: Final result Specimen: Abscess from Groin, Left Updated: 09/30/24 1551 Anaerobic Culture No anaerobic organisms isolated Abscess/Wound Aspirate Culture, Aerobic & Anaerobic [[id number]] (Abnormal) Collected: 09/26/24 1702 Lab Status: Final result Specimen: Abscess from Knee, Left Updated: 09/30/24 1551 Narrative: The following orders were created for panel order Abscess/Wound Aspirate Culture, Aerobic & Anaerobic. Procedure Abnormality Status --------- ------ Abscess/Wound Aspirate C...[[id number]] Abnormal Final result Anaerobic Culture[[id number]] Final result Please view results for these tests on the individual orders. Anaerobic Culture [[id number]] Collected: 09/26/24 170 Lab Status: Final result Specimen: Abscess from Knee, Left Updated: 09/30/24 1551 Anaerobic Culture No anaerobic organisms isolated Sonicated Tissue/Implant Culture [[id number]] (Abnormal) Collected: 09/26/24 1716 Lab Status: Final result Specimen: Vascular Graft from Leg, Left Updated: 09/30/24 1349 Sonicated Tissue/Implant Culture Methicillin Resistant Staphylococcus aureus Comment: isolated from broth culture. Susceptibilities previously reported. Abscess/Wound Aspirate Culture, Aerobic Only [[id number]] (Abnormal) (Susceptibility) Collected: 09/26/24 170 Lab Status: [...] to doxycycline. Abscess/Wound Aspirate Culture, Aerobic Only [[id number]] (Abnormal) (Susceptibility) Collected: 09/26/24 1650 Lab Status: [...] amputation who was transferred from [facility] given concern for infected left fem-BK popliteal PTFE bypass. 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 Vascular Surgery Progress Note Geovanna Dixon Jr. is a 49 y.o. male with history of HTN, HLD, NSTEMI, CAD s/p CABG (12/2011), DM, obesity, PAD s/p L iliofem endart and L fem-BK pop bypass and L 2nd toe amputation who was transferred from [facility] given concern for infected left fem-BK [...] smoking 1 week ago. He presented to [facility] on 09/26 and went to [...] Procedure Component Value - Date/Time Blood culture [[id number]] Collected: 09/29/242123 Lab Status: Final result Specimen: Blood, Venous Updated: 10/04/242300 Blood Culture No growth at 120 hours Blood culture [[id number]] Collected: 09/29/242123 Lab Status: Final result Specimen: Blood, Venous Updated: 10/04/24 230 Blood Culture No growth at 120 hours AFB culture [[id number]] Collected: 09/26/24 1702 Lab Status: Preliminary result Specimen: Abscess from Knee, Left Updated: 10/04/24 1201 Acid Fast Bacilli Culture No acid fast bacilli isolated at 1 week. Acid Fast Stain No acid fast bacilli seen Blood culture [[id number]] Collected: 09/28/24 1749 Lab Status: Final result Specimen: Blood, Venous Updated: 10/03/24 1901 Blood Culture No growth at 120 hours Blood culture [[id number]] (Abnormal) Collected: 09/27/242132 Lab Status: Final result Specimen: Blood, Venous Updated: 10/02/24 0804 Blood Culture Methicillin Resistant Staphylococcus aureus Comment: Susceptibilities previously reported. Gram Stain Aerobic Bottle: Gram positive cocci in clusters Tissue Culture, Aerobic & Anaerobic [[id number]] Collected: 09/27/241653 Lab Status: Final result Specimen: Tissue from Thigh, Left Updated: 10/01/24 1554 Narrative: The following orders were created for panel order Tissue Culture, Aerobic & Anaerobic. Procedure Abnormality Status --------- ------ Tissue Culture, Aerobic ...[[id number]] Anaerobic Culture[[id number]] Final result Please view results for these tests on the individual orders. Anaerobic Culture [[id number]] Collected: 09/27/241653 Lab Status: Final result Specimen: Tissue from Thigh, Left Updated: 10/01/24 1554 Anaerobic Culture No anaerobic organisms isolated Tissue Culture, Aerobic Only [[id number]] (Abnormal) (Susceptibility) Collected: 09/27/241653 Lab Status: Final [...] is considered susceptible to doxycycline. Blood culture [[id number]] (Abnormal) (Susceptibility) Collected: 09/26/24 1422 Lab Status: Final result Specimen: Blood, Venous Updated: 10/01/24 0658 Blood Culture Methicillin Resistant Staphylococcus aureus Comment: detected by PCR Isolate saved. If future testing is required, contact the Microbiology Fulling Machine Operator. Gram Stain Aerobic Bottle: Gram positive cocci in clusters Susceptibility Methicillin Resistant Staphylococcus aureus VITEK 2 METHOD Clindamycin Resistant Gentamicin Susceptible [1] Linezolid Susceptible Oxacillin Resistant Trimethoprim/Sulfa Susceptible Vancomycin Susceptible [1] Gentamicin is not appropriate for monotherapy for gram-positive infections. Blood culture [[id number]] (Abnormal) Collected: 09/26/24 1845 Lab Status: Final result Specimen: Blood, Venous Updated: 10/01/24 0658 Blood Culture Methicillin Resistant Staphylococcus aureus Comment: isolated. Susceptibilities previously reported. Gram Stain Aerobic Bottle: Gram positive cocci in clusters Abscess/Wound Aspirate Culture, Aerobic & Anaerobic [[id number]] (Abnormal) Collected: 09/26/241649 Lab Status: Final result Specimen: Abscess from Groin, Left Updated: 09/30/24 1551 Narrative: The following orders were created for panel order Abscess/Wound Aspirate Culture, Aerobic & Anaerobic. Procedure Abnormality Status --------- ------ Abscess/Wound Aspirate C...[[id number]] Abnormal Final result Anaerobic Culture[[id number]] Final result Please view results for these tests on the individual orders. Anaerobic Culture [[id number]] Collected: 09/26/241649 Lab Status: Final result Specimen: Abscess from Groin, Left Updated: 09/30/24 1551 Anaerobic Culture No anaerobic organisms isolated Abscess/Wound Aspirate Culture, Aerobic & Anaerobic [[id number]] (Abnormal) Collected: 09/26/241701 Lab Status: Final result Specimen: Abscess from Knee, Left Updated: 09/30/24 1551 Narrative: The following orders were created for panel order Abscess/Wound Aspirate Culture, Aerobic & Anaerobic. Procedure Abnormality Status --------- ------ Abscess/Wound Aspirate C...[[id number]] Abnormal Final result Anaerobic Culture[[id number]] Final result Please view results for these tests on the individual orders. Anaerobic Culture [[id number]] Collected: 09/26/241701 Lab Status: Final result Specimen: Abscess from Knee, Left Updated: 09/30/24 1551 Anaerobic Culture No anaerobic organisms isolated Sonicated Tissue/Implant Culture [[id number]] (Abnormal) Collected: 09/26/24 1716 Lab Status: Final result Specimen: Vascular Graft from Leg, Left Updated: 09/30/24 1349 Sonicated Tissue/Implant Culture Methicillin Resistant Staphylococcus aureus Comment: isolated from broth culture. Susceptibilities previously reported. Abscess/Wound Aspirate Culture, Aerobic Only [[id number]] (Abnormal) (Susceptibility) Collected: 09/26/241701 Lab Status: Final [...] to doxycycline. Abscess/Wound Aspirate Culture, Aerobic Only [[id number]] (Abnormal) (Susceptibility) Collected: 09/26/24 165 Lab Status: [...] is considered susceptible to doxycycline. AFB culture [[id number]] Collected: 09/27/241653 Lab Status: Preliminary result Specimen: Tissue from Thigh, Left Updated: 09/29/24 1201 Acid Fast Bacilli Culture No acid fast bacilli isolated to date. Acid Fast Stain No acid fast bacilli seen Fungus culture [[id number]] Collected: 09/27/241653 Lab Status: Preliminary result Specimen: [...] amputation who was transferred from [facility] given concern for infected left fem-BK popliteal PTFE bypass. 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 Interval explant of LEFT femoral [...] male who underwent a left lower extremity xfsokkt-xr-ffvwn-kneepopliteal artery bypass on August 01, 2024, and [...] concerns. Please page ID John team (pager [phone]) with questions or concerns. Lynne Leavitt MD Fellow, Infectious Disease Pager: [phone] Epic Chat 10/02/2024 This note was created using Retewi voice recognition software. Associated attestation - Amaya [...] Procedure Component Value - Date/Time Blood culture [[id number]] Collected: 09/29/242123 Lab Status: Final result Specimen: Blood, Venous Updated: 10/04/24 2301 Blood Culture No growth at 120 hours Blood culture [[id number]] Collected: 09/29/242123 Lab Status: Final result Specimen: Blood, Venous Updated: 10/04/24 2301 Blood Culture No growth at 120 hours AFB culture [[id number]] Collected: 09/26/24 170 Lab Status: Preliminary result Specimen: Abscess from Knee, Left Updated: 10/04/24 1201 Acid Fast Bacilli Culture No acid fast bacilli isolated at 1 week. Acid Fast Stain No acid fast bacilli seen Blood culture [[id number]] Collected: 09/28/24 1749 Lab Status: Final result Specimen: Blood, Venous Updated: 10/03/24 1901 Blood Culture No growth at 120 hours Blood culture [[id number]] (Abnormal) Collected: 09/27/242132 Lab Status: Final result Specimen: Blood, Venous Updated: 10/02/24 0804 Blood Culture Methicillin Resistant Staphylococcus aureus Comment: Susceptibilities previously reported. Gram Stain Aerobic Bottle: Gram positive cocci in clusters Tissue Culture, Aerobic & Anaerobic [[id number]] Collected: 09/27/241653 Lab Status: Final result Specimen: Tissue from Thigh, Left Updated: 10/01/24 155 Narrative: The following orders were created for panel order Tissue Culture, Aerobic & Anaerobic. Procedure Abnormality Status --------- ------ Tissue Culture, Aerobic ...[[id number]] Anaerobic Culture[[id number]] Final result Please view results for these tests on the individual orders. Anaerobic Culture [[id number]] Collected: 09/27/241653 Lab Status: Final result Specimen: Tissue from Thigh, Left Updated: 10/01/24 155 Anaerobic Culture No anaerobic organisms isolated Tissue Culture, Aerobic Only [[id number]] (Abnormal) (Susceptibility) Collected: 09/27/24 1654 Lab Status: [...] is considered susceptible to doxycycline. Blood culture [[id number]] (Abnormal) (Susceptibility) Collected: 09/26/24 1422 Lab Status: Final result Specimen: Blood, Venous Updated: 10/01/24 0658 Blood Culture Methicillin Resistant Staphylococcus aureus Comment: detected by PCR Isolate saved. If future testing is required, contact the Microbiology Fulling Machine Operator. Gram Stain Aerobic Bottle: Gram positive cocci in clusters Susceptibility Methicillin Resistant Staphylococcus aureus VITEK 2 METHOD Clindamycin >=8.0 ug/ml Resistant Gentamicin <=0.5 ug/ml Susceptible [1] Linezolid 2.0 ug/ml Susceptible Oxacillin >=4.0 ug/ml Resistant Trimethoprim/Sulfa <=10.0 ug/ml Susceptible Vancomycin 1.0 ug/ml Susceptible [1] Gentamicin is not appropriate for monotherapy for gram-positive infections. Blood culture [[id number]] (Abnormal) Collected: 09/26/24 1845 Lab Status: Final result Specimen: Blood, Venous Updated: 10/01/24 0658 Blood Culture Methicillin Resistant Staphylococcus aureus Comment: isolated. Susceptibilities previously reported. Gram Stain Aerobic Bottle: Gram positive cocci in clusters Abscess/Wound Aspirate Culture, Aerobic & Anaerobic [[id number]] (Abnormal) Collected: 09/26/24 1650 Lab Status: Final result Specimen: Abscess from Groin, Left Updated: 09/30/24 1551 Narrative: The following orders were created for panel order Abscess/Wound Aspirate Culture, Aerobic & Anaerobic. Procedure Abnormality Status --------- ------ Abscess/Wound Aspirate C...[[id number]] Abnormal Final result Anaerobic Culture[[id number]] Final result Please view results for these tests on the individual orders. Anaerobic Culture [[id number]] Collected: 09/26/24 1650 Lab Status: Final result Specimen: Abscess from Groin, Left Updated: 09/30/24 1551 Anaerobic Culture No anaerobic organisms isolated Abscess/Wound Aspirate Culture, Aerobic & Anaerobic [[id number]] (Abnormal) Collected: 09/26/24 1702 Lab Status: Final result Specimen: Abscess from Knee, Left Updated: 09/30/24 1551 Narrative: The following orders were created for panel order Abscess/Wound Aspirate Culture, Aerobic & Anaerobic. Procedure Abnormality Status --------- ------ Abscess/Wound Aspirate C...[[id number]] Abnormal Final result Anaerobic Culture[[id number]] Final result Please view results for these tests on the individual orders. Anaerobic Culture [[id number]] Collected: 09/26/24 1702 Lab Status: Final result Specimen: Abscess from Knee, Left Updated: 09/30/24 1551 Anaerobic Culture No anaerobic organisms isolated Sonicated Tissue/Implant Culture [[id number]] (Abnormal) Collected: 09/26/24 1716 Lab Status: Final result Specimen: Vascular Graft from Leg, Left Updated: 09/30/24 1349 Sonicated Tissue/Implant Culture Methicillin Resistant Staphylococcus aureus Comment: isolated from broth culture. Susceptibilities previously reported. Abscess/Wound Aspirate Culture, Aerobic Only [[id number]] (Abnormal) (Susceptibility) Collected: 09/26/24 1702 Lab Status: [...] to doxycycline. Abscess/Wound Aspirate Culture, Aerobic Only [[id number]] (Abnormal) (Susceptibility) Collected: 09/26/24 165 Lab Status: [...] is considered susceptible to doxycycline. AFB culture [[id number]] Collected: 09/27/241653 Lab Status: Preliminary result Specimen: Tissue from Thigh, Left Updated: 09/29/24 1201 Acid Fast Bacilli Culture No acid fast bacilli isolated to date. Acid Fast Stain No acid fast bacilli seen Fungus culture [[id number]] Collected: 09/27/241653 Lab Status: Preliminary result Specimen: Tissue from Thigh, Left Updated: 09/28/24 0748 Fungus Culture No fungus isolated to date EKG/echo: reviewed Imaging: [email or web address] External records in - [facility]: reviewed Category 3: The ID consult team [...] for consulting infectious diseases. Amaya Hernandez MD, [facility] Infectious Diseases Staff Physician * Vibha [...] Diet NPO Monitoring: Q4 Fawn Cunningham APRN [facility] Endocrinology Diabetes Management Pager [phone] Weekends please page [phone] minutes were spent over the course [...] amputation who was transferred from [facility] given concern for infected left fem-BK [...] smoking 1 week ago. He presented to [facility] on 09/26 and went to [...] TID WC acetaminophen 975 mg Oral Q6H [facility] atorvastatin 80 mg Oral QPM aspirin EC 81 mg Oral Daily methylphenidate 20 mg Oral TID pantoprazole EC 40 mg Oral Daily senna-docusate 2 tablet Oral BID venlafaxine XR 225 mg Oral Daily heparin (porcine) 5,000 Units Subcutaneous Q8H [facility] lidocaine 1 patch Transdermal Q24H Operations this [...] Procedure Component Value - Date/Time Blood culture [[id number]] Collected: 09/29/242123 Lab Status: Preliminary result Specimen: Blood, Venous Updated: 10/03/24 230 Blood Culture No growth at 96 hours Blood culture [[id number]] Collected: 09/29/242123 Lab Status: Preliminary result Specimen: Blood, Venous Updated: 10/03/24 2301 Blood Culture No growth at 96 hours Blood culture [[id number]] Collected: 09/28/24 1749 Lab Status: Final result Specimen: Blood, Venous Updated: 10/03/24 1901 Blood Culture No growth at 120 hours Blood culture [[id number]] (Abnormal) Collected: 09/27/242132 Lab Status: Final result Specimen: Blood, Venous Updated: 10/02/24 0804 Blood Culture Methicillin Resistant Staphylococcus aureus Comment: Susceptibilities previously reported. Gram Stain Aerobic Bottle: Gram positive cocci in clusters Tissue Culture, Aerobic & Anaerobic [[id number]] Collected: 09/27/24 1654 Lab Status: Final result Specimen: Tissue from Thigh, Left Updated: 10/01/24 1554 Narrative: The following orders were created for panel order Tissue Culture, Aerobic & Anaerobic. Procedure Abnormality Status --------- ------ Tissue Culture, Aerobic ...[[id number]] Anaerobic Culture[[id number]] Final result Please view results for these tests on the individual orders. Anaerobic Culture [[id number]] Collected: 09/27/24 1654 Lab Status: Final result Specimen: Tissue from Thigh, Left Updated: 10/01/24 1554 Anaerobic Culture No anaerobic organisms isolated Tissue Culture, Aerobic Only [[id number]] (Abnormal) (Susceptibility) Collected: 09/27/24 165 Lab Status: [...] is considered susceptible to doxycycline. Blood culture [[id number]] (Abnormal) (Susceptibility) Collected: 09/26/24 1422 Lab Status: Final result Specimen: Blood, Venous Updated: 10/01/24 0658 Blood Culture Methicillin Resistant Staphylococcus aureus Comment: detected by PCR Isolate saved. If future testing is required, contact the Microbiology Fulling Machine Operator. Gram Stain Aerobic Bottle: Gram positive cocci in clusters Susceptibility Methicillin Resistant Staphylococcus aureus VITEK 2 METHOD Clindamycin Resistant Gentamicin Susceptible [1] Linezolid Susceptible Oxacillin Resistant Trimethoprim/Sulfa Susceptible Vancomycin Susceptible [1] Gentamicin is not appropriate for monotherapy for gram-positive infections. Blood culture [[id number]] (Abnormal) Collected: 09/26/24 1845 Lab Status: Final result Specimen: Blood, Venous Updated: 10/01/24 0658 Blood Culture Methicillin Resistant Staphylococcus aureus Comment: isolated. Susceptibilities previously reported. Gram Stain Aerobic Bottle: Gram positive cocci in clusters Abscess/Wound Aspirate Culture, Aerobic & Anaerobic [[id number]] (Abnormal) Collected: 09/26/24 1650 Lab Status: Final result Specimen: Abscess from Groin, Left Updated: 09/30/24 1551 Narrative: The following orders were created for panel order Abscess/Wound Aspirate Culture, Aerobic & Anaerobic. Procedure Abnormality Status --------- ------ Abscess/Wound Aspirate C...[[id number]] Abnormal Final result Anaerobic Culture[[id number]] Final result Please view results for these tests on the individual orders. Anaerobic Culture [[id number]] Collected: 09/26/24 1650 Lab Status: Final result Specimen: Abscess from Groin, Left Updated: 09/30/24 1551 Anaerobic Culture No anaerobic organisms isolated Abscess/Wound Aspirate Culture, Aerobic & Anaerobic [[id number]] (Abnormal) Collected: 09/26/24 1702 Lab Status: Final result Specimen: Abscess from Knee, Left Updated: 09/30/24 1551 Narrative: The following orders were created for panel order Abscess/Wound Aspirate Culture, Aerobic & Anaerobic. Procedure Abnormality Status --------- ------ Abscess/Wound Aspirate C...[[id number]] Abnormal Final result Anaerobic Culture[[id number]] Final result Please view results for these tests on the individual orders. Anaerobic Culture [[id number]] Collected: 09/26/24 170 Lab Status: Final result Specimen: Abscess from Knee, Left Updated: 09/30/24 1551 Anaerobic Culture No anaerobic organisms isolated Sonicated Tissue/Implant Culture [[id number]] (Abnormal) Collected: 09/26/24 1716 Lab Status: Final result Specimen: Vascular Graft from Leg, Left Updated: 09/30/24 1349 Sonicated Tissue/Implant Culture Methicillin Resistant Staphylococcus aureus Comment: isolated from broth culture. Susceptibilities previously reported. Abscess/Wound Aspirate Culture, Aerobic Only [[id number]] (Abnormal) (Susceptibility) Collected: 09/26/24 1702 Lab Status: [...] to doxycycline. Abscess/Wound Aspirate Culture, Aerobic Only [[id number]] (Abnormal) (Susceptibility) Collected: 09/26/24 1650 Lab Status: [...] is considered susceptible to doxycycline. AFB culture [[id number]] Collected: 09/27/24 165 Lab Status: Preliminary result Specimen: Tissue from Thigh, Left Updated: 09/29/24 1201 Acid Fast Bacilli Culture No acid fast bacilli isolated to date. Acid Fast Stain No acid fast bacilli seen AFB culture [[id number]] Collected: 09/26/24 1702 Lab Status: Preliminary result Specimen: Abscess from Knee, Left Updated: 09/29/24 1201 Acid Fast Bacilli Culture No acid fast bacilli isolated to date. Acid Fast Stain No acid fast bacilli seen Fungus culture [[id number]] Collected: 09/27/24 1654 Lab Status: Preliminary result Specimen: Tissue from Thigh, Left Updated: 09/28/24 0748 Fungus Culture No fungus isolated to date MRSA PCR Screen [[id number]] (Abnormal) Collected: 09/27/24 0751 Lab Status: Final result Specimen: Swab from Nares Updated: 09/27/24 1156 MRSA PCR Detected Narrative: This test was performed using the Xpert MRSA NxG test kit and is run on the [employer] GeneXpert Dx System. This test is cleared by the U.S. Food and Drug Administration for clinical use and its performance characteristics have been verified by the [facility] at [facility]. New Studies: - None Assessment & Plan: Geovanna Dixon Jr. is a 49 y.o. male with a history of HTN, HLD, NSTEMI, CAD s/p CABG (12/2011), DM,obesity, PAD s/p L iliofem endart and L fem-BK pop bypass and L 2nd toe amputation who was transferred from [facility] given concern for infected left fem-BK popliteal PTFE bypass. He is now s/p an explantof an infected left femoral-below knee popliteal artery bypass graft (09/26), I/D groin abscess (), L GSV harvest, vein patch angioplasty, L TELEPHONE DIRECTORY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 Anaerobic Culture [[id number]] Collected: 09/27/241653 Lab Status: Preliminary result Specimen: Tissue from Thigh, Left Updated: 09/28/24 1355 Anaerobic Culture No anaerobic organisms isolated to date Fungus culture [[id number]] Collected: 09/27/241653 Lab Status: Preliminary result Specimen: Tissue from Thigh, Left Updated: 09/28/24 0748 Fungus Culture No fungus isolated to date MRSA PCR Screen [[id number]] (Abnormal) Collected: 09/27/24 0751 Lab Status: Final result Specimen: Swab from Nares Updated: 09/27/24 1156 MRSA PCR Detected Narrative: This test was performed using the Xpert MRSA NxG test kit and is run on the [employer] GeneXpert Dx System. This test is cleared by the U.S. Food and Drug Administration for clinical use and its performance characteristics have been verified by the [facility] at [facility]. Fungus culture [[id number]] Collected: 09/26/24 165 Lab Status: Preliminary result Specimen: Abscess from Groin, Left Updated: 09/27/24 0727 Fungus Culture No fungus isolated to date Fungus culture [[id number]] Collected: 09/26/24 1702 Lab Status: Preliminary result [...] amputation who was transferred from [facility] given concern for infected left fem-BK popliteal PTFE bypass. 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 10/01/24: Tolerated gentle irrigation with saline at BSD today with clear to mildly serosang drainage - no purulence or malodor noted and patient tolerated well. Will plan for NPO at [facility] for return [place] tomorrow. Hypertensive overnight, home metoprolol added back. [...] - ISS - diet today; NPO at [facility] for OR Tuesday 10/02 Anticoagulation: SQH TID Antiplatelet: ASA 81 María Carranza APRN 10/01/2024 Pager: [phone] * Karolyn Hudson MD - 09/30/2024 11:21 [...] amputation who was transferred from [facility] given concern for infected left fem-BK [...] smoking 1 week ago. He presented to [facility] on 09/26 and went to [...] Procedure Component Value - Date/Time Blood culture [[id number]] (Abnormal) Collected: 09/27/24 2133 Lab Status: Preliminary result Specimen: Blood, Venous Updated: 09/30/24 0718 Blood Culture Methicillin Resistant Staphylococcus aureus Comment: Susceptibilities previously reported. Gram Stain Aerobic Bottle: Gram positive cocci in clusters Blood culture [[id number]] Collected: 09/28/24 1749 Lab Status: Preliminary result Specimen: Blood, Venous Updated: 09/29/24 1901 Blood Culture No Growth at 18-24 hrs. AFB culture [[id number]] Collected: 09/27/24 1654 Lab Status: Preliminary result Specimen: Tissue from Thigh, Left Updated: 09/29/24 1201 Acid Fast Bacilli Culture No acid fast bacilli isolated to date. Acid Fast Stain No acid fast bacilli seen AFB culture [[id number]] Collected: 09/26/24 1702 Lab Status: Preliminary result Specimen: Abscess from Knee, Left Updated: 09/29/24 1201 Acid Fast Bacilli Culture No acid fast bacilli isolated to date. Acid Fast Stain No acid fast bacilli seen Sonicated Tissue/Implant Culture [[id number]] (Abnormal) Collected: 09/26/24 1716 Lab Status: Preliminary result Specimen: Vascular Graft from Leg, Left Updated: 09/29/24 1132 Sonicated Tissue/Implant Culture Methicillin Resistant Staphylococcus aureus Comment: isolated from broth culture. Susceptibilities previously reported. Tissue Culture, Aerobic Only [[id number]] (Abnormal) (Susceptibility) Collected: 09/27/24 1654 Lab Status: [...] is considered susceptible to doxycycline. Blood culture [[id number]] (Abnormal) Collected: 09/26/24 1845 Lab Status: Preliminary result Specimen: Blood, Venous Updated: 09/29/24 0719 Blood Culture Methicillin Resistant Staphylococcus aureus Comment: isolated. Susceptibilities previously reported. Gram Stain Aerobic Bottle: Gram positive cocci in clusters Blood culture [[id number]] (Abnormal) (Susceptibility) Collected: 09/26/24 1422 Lab Status: Preliminary result Specimen: Blood, Venous Updated: 09/29/24 0717 Blood Culture Methicillin Resistant Staphylococcus aureus Comment: detected by PCR Isolate saved. If future testing is required, contact the Microbiology Fulling Machine Operator. Gram Stain Aerobic Bottle: Gram positive cocci in clusters Susceptibility Methicillin Resistant Staphylococcus aureus VITEK 2 METHOD Clindamycin Resistant Gentamicin Susceptible [1] Linezolid Susceptible Oxacillin Resistant Trimethoprim/Sulfa Susceptible Vancomycin Susceptible [1] Gentamicin is not appropriate for monotherapy for gram-positive infections. Anaerobic Culture [[id number]] Collected: 09/27/24 1654 Lab Status: Preliminary result Specimen: Tissue from Thigh, Left Updated: 09/28/24 1355 Anaerobic Culture No anaerobic organisms isolated to date Abscess/Wound Aspirate Culture, Aerobic Only [[id number]] (Abnormal) (Susceptibility) Collected: 09/26/24 1702 Lab Status: [...] to doxycycline. Abscess/Wound Aspirate Culture, Aerobic Only [[id number]] (Abnormal) (Susceptibility) Collected: 09/26/241649 Lab Status: Preliminary [...] is considered susceptible to doxycycline. Fungus culture [[id number]] Collected: 09/27/241653 Lab Status: Preliminary result Specimen: Tissue from Thigh, Left Updated: 09/28/24 0748 Fungus Culture No fungus isolated to date MRSA PCR Screen [[id number]] (Abnormal) Collected: 09/27/24 0751 Lab Status: Final result Specimen: Swab from Nares Updated: 09/27/24 1156 MRSA PCR Detected Narrative: This test was performed using the Xpert MRSA NxG test kit and is run on the [employer] GeneXpert Dx System. This test is cleared by the U.S. Food and Drug Administration for clinical use and its performance characteristics have been verified by the [facility] at [facility]. Anaerobic Culture [[id number]] Collected: 09/26/241649 Lab Status: Preliminary result Specimen: Abscess from Groin, Left Updated: 09/27/24 1142 Anaerobic Culture No anaerobic organisms isolated to date Anaerobic Culture [[id number]] Collected: 09/26/24 1702 Lab Status: Preliminary result Specimen: Abscess from Knee, Left Updated: 09/27/24 1142 Anaerobic Culture No anaerobic organisms isolated to date Fungus culture [[id number]] Collected: 09/26/241649 Lab Status: Preliminary result Specimen: Abscess from Groin, Left Updated: 09/27/24726 Fungus Culture No fungus isolated to date Fungus culture [[id number]] Collected: 09/26/24 1702 Lab Status: Preliminary result Specimen: Abscess from Knee, Left Updated: 09/27/24726 Fungus Culture No fungus isolated to date New Studies Results for orders placed or performed during the hospital encounter of 09/26/[address] Request For [address]nd Read CT Lower Extremity (Exam End: 09/26/2024 1:50 PM) Result Value WORKSTATION ID [id number] Impression 1. There is a left femoral [...] who have questions please contact the health resident care director that requested your imaging first. Electronically signed by: Lisette Bruno MD, [facility] ([phone]), at 09/26/2024 3:[address] Lower Extremity w Contrast Left (Exam End: 09/27/2024 9:16 AM) Result Value WORKSTATION ID [id number] Impression IMPRESSION: 1. Interval explant of LEFT [...] who have questions please contact the health resident care director that requested your imaging first. [...] amputation who was transferred from [facility] given concern for infected left fem-BK [...] Labs 09/28/24 1516 PHART 7.42 PO2ART 103 [id number] 39 LACTATEART 1.1 BEART 0.2 Is this [...] 1643 PHART 7.42 7.38 PO2ART 103 96 [id number] 39 41 LACTATEART 1.1 1.7 BEART 0.2 [...] you, Renea Nunez, MS, RD, LD, [facility] Clinical Nutrition * aMriya Shi RN - 09/28/2024 11:01 PM EST [...] Diet CC Monitoring: Q4 Fawn Cunningham APRN [facility] Endocrinology Diabetes Management Pager [phone] Weekends please page [phone] minutes were spent over the course [...] Labs 09/26/24 1643 PHART 7.38 PO2ART 96 [id number] 41 LACTATEART 1.7 BEART -1.4 Is this [...] amputation who was transferred from [facility] given concern for infected left fem-BK [...] smoking 1 week ago. He presented to [facility] on 09/26 and went to [...] Q8H heparin (porcine) 5,000 Units Subcutaneous Q8H [facility] lidocaine 1 patch Transdermal Q24H 24 hour [...] Procedure Component Value - Date/Time Fungus culture [[id number]] Collected: 09/27/24 1654 Lab Status: Preliminary result Specimen: Tissue from Thigh, Left Updated: 09/28/24 0748 Fungus Culture No fungus isolated to date Blood culture [[id number]] (Abnormal) Collected: 09/26/24 1845 Lab Status: Preliminary result Specimen: Blood, Venous Updated: 09/28/24 0711 Blood Culture Methicillin Resistant Staphylococcus aureus Comment: isolated. Susceptibility testing in progress. Gram Stain Aerobic Bottle: Gram positive cocci in clusters AFB culture [[id number]] Collected: 09/26/24 1702 Lab Status: Preliminary result Specimen: Abscess from Knee, Left Updated: 09/27/24 2335 Acid Fast Stain No acid fast bacilli seen Tissue Culture, Aerobic Only [[id number]] Collected: 09/27/24 1654 Lab Status: Preliminary result Specimen: Tissue from Thigh, Left Updated: 09/27/24 1810 Gram Stain Few Neutrophils seen No microorganisms seen Abscess/Wound Aspirate Culture, Aerobic Only [[id number]] (Abnormal) Collected: 09/26/24 170 Lab Status: Preliminary result Specimen: Abscess from Knee, Left Updated: 09/27/24 1520 Abscess/Wound Aspirate Culture Many Staphylococcus aureus Gram Stain Many neutrophils Many Gram positive cocci Abscess/Wound Aspirate Culture, Aerobic Only [[id number]] (Abnormal) Collected: 09/26/24 165 Lab Status: Preliminary result Specimen: Abscess from Groin, Left Updated: 09/27/24 1519 Abscess/Wound Aspirate Culture Many Staphylococcus aureus Gram Stain Many neutrophils Many Gram positive cocci Blood culture [[id number]] (Abnormal) Collected: 09/26/24 1422 Lab Status: Preliminary result Specimen: Blood, Venous Updated: 09/27/24 1320 Blood Culture Methicillin Resistant Staphylococcus aureus Comment: detected by PCR Gram Stain Aerobic Bottle: Gram positive cocci in clusters MRSA PCR Screen [[id number]] (Abnormal) Collected: 09/27/24 0751 Lab Status: Final result Specimen: Swab from Nares Updated: 09/27/24 1156 MRSA PCR Detected Narrative: This test was performed using the Xpert MRSA NxG test kit and is run on the [employer] GeneX[employer] Dx System. This test is cleared by the U.S. Food and Drug Administration for clinical use and its performance characteristics have been verified by the [facility] at [facility]. Anaerobic Culture [[id number]] Collected: 09/26/24 1650 Lab Status: Preliminary result Specimen: Abscess from Groin, Left Updated: 09/27/24 1142 Anaerobic Culture No anaerobic organisms isolated to date Anaerobic Culture [[id number]] Collected: 09/26/24 1702 Lab Status: Preliminary result Specimen: Abscess from Knee, Left Updated: 09/27/24 1142 Anaerobic Culture No anaerobic organisms isolated to date Fungus culture [[id number]] Collected: 09/26/24 1650 Lab Status: Preliminary result Specimen: Abscess from Groin, Left Updated: 09/27/24726 Fungus Culture No fungus isolated to date Fungus culture [[id number]] Collected: 09/26/24 1702 Lab Status: Preliminary result Specimen: Abscess from Knee, Left Updated: 09/27/24726 Fungus Culture No fungus isolated to date New Studies Results for orders placed or performed during the hospital encounter of 09/26/24 Request For 2nd Read CT Lower Extremity (Exam End: 09/26/2024 1:50 PM) Result Value WORKSTATION ID [id number] Impression 1. There is a left femoral [...] who have questions please contact the health resident care director that requested your imaging first. Electronically signed by: Lisette Bruno MD, [facility] ([phone]), at 09/26/2024 3:[address] Lower Extremity w Contrast Left (Exam End: 09/27/2024 9:16 AM) Result Value WORKSTATION ID [id number] Impression IMPRESSION: 1. Interval explant of LEFT [...] who have questions please contact the health resident care director that requested your imaging first. Assessment & Plan Geovanna Dixon Jr. is a 49 y.o. male with a history of HTN, HLD, NSTEMI, CAD s/p CABG (12/2011), DM,obesity, PAD s/p L iliofem endart and L fem-BK pop bypass and L 2nd toe amputation who was transferred from [facility] given concern for infected left fem-BK [...] NaveenKita dobson - 09/27/2024 3:58 PM EST Lead Operator Encounter Note Patient Name: Geovanna Dixon Jr. : [id number] MR#: [id number] Admit Date: 09/26/2024 2:08 PM Hospital Day 1 day Narrative: Database Engineer initiated visit with patient during rounds on [...] Labs 09/26/24 1643 PHART 7.38 PO2ART 96 [id number] 41 LACTATEART 1.7 BEART -1.4 Is this [...] amputation who was transferred from [facility] given concern for infected left fem-BK [...] smoking 1 week ago. He presented to [facility] on 09/26 and went to [...] amputation who was transferred from [facility] given concern for infected left fem-BK popliteal PTFE bypass. He is now s/p an explantof an infected left femoral-below knee popliteal artery bypass graft. Significant purulence under pr essure was seen intraoperatively, surrounding the entire bypass at proximal and distal anastomoses as well as the tunnel. There are retained grafts left at proximal and distal anastomoses, and a [place] drain placed from left groin to left [...] infection. The patient presented to [facility] ED on 09/26 for evaluation of [...] stable during his time at [facility] and was transported by ground to [facility] for vascular surgery consultation. Patient [...] 3.51) performed by Thony Garcia MD at [facility] MAIN OR PRO BYPASS GRAFT OTHR, FEM-TIBIAL Left 08/01/2024 @BYPASS GRAFT, FEM-ANT TIBIAL, -POST TIBIAL, -PERONEAL, -DP W\ SYNTHETIC CONDUIT (WRVU 23.66) performed by Lisette Maldonado MD at [facility] MAIN OR PRO CABG, ARTERY-VEIN, SINGLE 01/04/2012 @CABG, VENOUS & ARTERIAL GRAFT;SINGLE VEIN GRAFT performed by INNA TOVAR at [facility] MAIN OR PRO ENDOSCOPY W/VIDEO-ASST VEIN HARVEST, CABG 01/04/2012 ENDOSCOPIC HARVEST VEIN(S) FOR CABG performed by INNA TOVAR at [facility] MAIN OR VS ARTERIOGRAM LOWER EXTREMITY VASCULAR SURGERY 07/20/2024 VS Arteriogram Lower Extremity Vascular Surgery 07/20/2024 Anabel Finney MD [facility] INTERVENTIONL RAD Prior To Admission Medications: [...] 3 times daily. Use as instructed Indications: [id number] each 1 Past Week FreeStyle Lancets 28 [...] 200 - 393 mg/dL Type and screen ([facility]/JACKELYN/BABITA) Result Value Ref Range ABORH Type A POSITIVE PATIENT HISTORY Found Expires at 2359 on: 09/29/2024 ANTIBODY SCREEN AUTOMATED Negative T&S only valid at [facility] LAB CBC (with Diff) Result [...] 09/26/2024 1:50 PM) Result Value WORKSTATION ID [id number] Impression 1. There is a left femoral [...] who have questions please contact the health resident care director that requested your imaging first. Electronically signed by: Lisette Bruno MD, [facility] ([phone]), at 09/26/2024 3:01 PM Assessment/Plan: Geovanna Dixon [...] to the planned procedure. Hand Hygiene: The area captain did perform hand hygiene prior to line insertion. Catheter type: PICC Lot number: [id number] Procedure Technique: Skin was prepped with chlorhexidine. [...] to the planned procedure. Hand Hygiene: The area captain did perform hand hygiene prior to line insertion. Catheter type: PICC Lot number: [id number] Procedure Technique: Skin was prepped with chlorhexidine. [...] tomorrow afternoon. Home Vac: I have called [facility] Inventory and they they have now delivered the home ActiVac serial # [id number]. Pt reviewed the [facility] ActiVac Proof of Delivery/Assignment of Benefits (POD/AOB)form and signed it; she has copy of this and the [facility] Patient Copy letter along with the supplies, I will fax copy of the POD/AOB to [facility]. Needs for Transition of Care: Plan for discharge is: Home w/ Services Outpatient Agency/Support Group Needs: Homecare agency Outpatient IV Medications - IV Access: Access Ordered Location: Home, Referred to [facility] Coordination, Referred to [facility] Services: Occupational Therapy, Physical Therapy, Registered Nurse Agency Referrals & Follow-up Care: Contact information for follow-up Home Health & Hospice, [place] [address] [place] [address] Transportation: family or friend will provide Functional status prior to admission: Independent Home Environment: Others in the home: sibling(s), other (see comments) (lives with his sister delmy and brother in law). Current Living Arrangements: home/apartment/condo. Accessibility Concerns: . Current Functional Ability: Assistive Person and Equipment DME used at home: none Other DME Needs: Wound Vac Provider: [facility] Patient is insured through: Primary Insurance: [employer] MANAGED MEDICARE Payor: [employer] MANAGED MEDICARE / Plan: [facility] PPO / Product Type: [...] Pain Flowsheets Taken 10/09/20242022 Pain Management Interventions: qnovpx-itq-jqvcr dosing utilized care clustered diversional activity provided [...] from the [place] [address] [facility] Vascular Access Service Peripherally Inserted Central Catheter (PICC) Teaching Sheet Peripherally inserted central catheters (ewni-du-jtiw) (PICC) are used when you need IV [...] catheter? PICC lines are used for termite control service representative treatments. PICC lines may be used for [...] can be set up via the nurse Ehs Specialist to help you. What are possible complications [...] Efficacy, Safety, Use, and Administration of Cathflo, [employer] 2005 * Care Management - Cristina [...] Access: Access Ordered Location: Home, Referred to [facility] Coordination Home Health Services: Occupational Therapy, Physical Therapy, Registered Nurse- will remove PT, OT Agency Referrals: [facility] and [facility] for IV abx. [facility] [...] 9:00 AM EST OFFICE OF CARE MANAGEMENT Ehs Specialist Follow-up Note Cristina Turner RN reviewed record [...] medically ready. Current Referral in place: VNA: [facility] Wound vac ordered in [employer] for home wound vac and order emailed to: María for signature. Ehs Specialist to follow with team and family to [...] where referrals are placed. Request referral to [place], [place] for IV abx or . Expected date of discharge: 10/11. Patient will require teaching. Referral routed to the Covering And Lining Supervisor for matching with agency/vendor and to [...] care clustered diversional activity provided position adjusted mehaha-nuh-skfww dosing utilized pain management plan reviewed with [...] have. Alternately, during off-hours you may call [phone] to contact a pharmacist. * Plan of Care - Jordyn Navas RN - 10/07/2024 7:21 PM EST OUTCOME EVALUATION NOTE: OUTCOME SUMMARY: [facility], Meds/Assessments as charted, Frequent safety [...] PM EST PICC line placed today for shelter ABX. Neurovascular checks unchanged. Good oral intake [...] from the [place] [address] [facility] Vascular Access Service Peripherally Inserted Central Catheter (PICC) Teaching Sheet Peripherally inserted central catheters (abes-zd-ipsy) (PICC) are used when you need IV [...] midline catheter? PICC lines are used for shelter treatments. PICC lines may be used for [...] can be set up via the nurse Ehs Specialist to help you. What are possible complications [...] Vascular Access Device Selection, Insertion, and Management, [employer] Access Systems 08/12. A Review of the Efficacy, Safety, Use, and Administration of Cathflo, [employer] 2005 * Care Management - Vibha [...] through: Primary Insurance: [employer] MANAGED MEDICARE Payor: [employer] MEDICARE / Plan: [employer] MANAGED MEDICARE PPO / Product Type: *No [...] of Discharge: 10/10/2024 Vibha Wahl RN-BSN-CM Pager: [phone] * Consult Note - Stormy Muller [facility] - 10/06/2024 9:19 AM EST [facility] Pharmacokinetics Note Drug: Vancomycin Pharmacokinetic target: [...] Analysis of the most recent level(s) using [employer] gives the following patient-specific pharmacokinetic parameters: CL: [...] in a steady-state trough of 14.6 mg/L [id number] of 508 mg/L.hr. Recommendations: - SCr has risen and AUC is now above target goal. Reducing dose to Vancomycin 1000 mg IV every 8 hours - Obtain Vancomycin level in ~48 hours - Continue to monitor serum creatinine Stormy Muller Electronically signed by Stormy Muller [facility] at 10/06/2024 9:19 AM EST * Plan of Care - Melia Whitehead [...] Meeks MD - 10/04/2024 5:01 PM EST [facility] Operative Note Patient Name: Geovanna Dixon Jr. : [id number] MR#: [id number] Case Date: 10/04/2024 Surgeon: Surgeons and Role: * Marko Dickson MD - Primary * Cristino Meeks MD - Resident - Assisting Preoperative diagnosis: Status post explant of infected left TELEPHONE DIRECTORY DELIVERER-BK pop bypass graft Postoperative diagnosis: Status post explant of infected left TELEPHONE DIRECTORY DELIVERER-BK pop bypass graft Procedure(s) (LRB): DEBRIDEMENT SKIN [...] amputation who was transferred from [facility] given concern for infected left fem-BK popliteal PTFE bypass. He is now s/p an explant of an infected left femoral-below knee popliteal artery bypass graft on 09/26 followed by I/D posterior thigh abscess on 09/27 then left GSV harvest, total explant of remaining PTFE then vein patch angioplasty of the left TELEPHONE DIRECTORY DELIVERER and BK popliteal artery on 09/28 then [...] Note Patient Name: Geovanna Dixon Jr. : [id number] MR#: [id number] Case Date: 10/04/2024 Surgeon: Surgeons and Role: * Marko Dickson MD - Primary * Cristino Meeks MD - Resident - Assisting Preoperative diagnosis: Status post explant of infected left TELEPHONE DIRECTORY DELIVERER-BK pop bypass graft Postoperative diagnosis: Status post explant of infected left TELEPHONE DIRECTORY DELIVERER-BK pop bypass graft Procedure(s) (LRB): DEBRIDEMENT SKIN [...] No Patient is insured through: Primary Insurance: [employer] MEDICARE Payor: [employer] MEDICARE / Plan: [employer] MANAGED MEDICARE PPO / Product Type: *No [...] BIT to reengage please page BIT @ [phone] * Consult Note - Vangie Chandra [facility] - 10/04/2024 10:42 AM EST [facility] Pharmacokinetics Note Drug: Vancomycin Pharmacokinetic target: AUC24 (range) 400-600 mg/L.hr Current regimen: 1500 mg IV every 8 hours Geovanna Dixon is a(n) 49 years old male receiving Vancomycin 1500 mg IV every 8 hours for graft infection Recent measured serum creatinine values: 10/04/2024 00:08 0.56 mg/dL 10/03/2024 00:27 0.51 mg/dL 10/02/2024 00:41 0.49 mg/dL Assessment: Analysis of the most recent level(s) using [employer] gives the following patient-specific pharmacokinetic parameters: CL: [...] Continue to monitor serum creatinine Vangie Chandra Electronically signed by Vangie Chandra [facility] at 10/04/2024 10:45 AM EST * Plan of Care - Cathryn Hankins, [...] toe amputationwho was transferred from [facility] given concern for infected left fem-BK popliteal PTFE bypass. 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 10/03/24 NPO at [facility] for OR wound exploration. Wound [...] 3.51) performed by Thony Garcia MD at [facility] MAIN OR PRO BYPASS GRAFT OTHR, FEM-TIBIAL Left 08/01/2024 @BYPASS GRAFT, FEM-ANT TIBIAL, -POST TIBIAL, -PERONEAL, -DP W\ SYNTHETIC CONDUIT (WRVU 23.66) performed by Lisette Maldonado MD at [facility] MAIN OR PRO CABG, ARTERY-VEIN, SINGLE 01/04/2012 @CABG, VENOUS & ARTERIAL GRAFT;SINGLE VEIN GRAFT performed by INNA TOVAR at [facility] MAIN OR PRO DEBRIDEMENT MUSCLE AND FASCIA 20 SQ CM/< Left 09/29/2024 DEBRIDEMENT SKIN, SUBCU, MUSCLE, LOWER EXTREMITY (WRVU 2.7) performed by Anabel Finney MD at [facility] MAIN OR PRO DEBRIDEMENT MUSCLE AND FASCIA 20 SQ CM/< Left 10/02/2024 DEBRIDEMENT SKIN, SUBCU, MUSCLE, LOWER EXTREMITY (WRVU 2.7) performed by Hermila Mccormick MDat [facility] MAIN OR PRO DEBRIDEMENT SUBCUTANEOUS TISSUE 20 SQCM/< Left 09/27/2024 DEBRIDEMENT SKIN AND SUBCU, LOWER EXTREMITY (WRVU 1.01) performed by Hayley Torres MD at [facility] MAIN OR PRO DRAIN LOWER LEG DEEP ABSC/HEMATOMA Left 09/26/2024 INCISION & DRAINAGE, LEG OR ANKLE, DEEP ABSCESS OR HEMATOMA (WRVU 5.23) performed by Hayley Torres MD at [facility] OR PRO ENDOSCOPY W/VIDEO-ASST VEIN HARVEST, CABG 01/04/2012 ENDOSCOPIC HARVEST VEIN(S) FOR CABG performed by INNA TOVAR at [facility] MAIN OR PRO EXCISION, INFEC GRAFT, EXTREMITY Left 09/26/2024 EXCISION OF INFECTED GRAFT FROM LOWER EXTREMITY (WRVU 9.53) performed by Hayley Torres MD at [facility] OR PRO EXCISION, INFEC GRAFT, EXTREMITY Left 09/28/2024 EXCISION OF INFECTED GRAFT FROM LOWER EXTREMITY (WRVU 9.53) performed by Hayley Torres MD at [facility] OR PRO EXPLORATION NOT FOLLOWED BY SURG LOWER EXTREMITY ARTERY Left 09/29/2024 @EXPLORATION W\O SURGICAL REPAIR, FEMORAL ARTERY - JENNIFER (WRVU 7.5) performed by Anabel Finney MD at [facility] MAIN OR PRO FORM SKIN PEDICLE FLAP SCALP, ARM, LEG 09/28/2024 FLAP, PEDICLE,W OR W/O TRANSFER, LEGS (WRVU 10.12) performed by Hayley Torres MD at [facility] MAIN OR PRO I&D DEEP ABSCESS BURSA/HEMATOMA THIGH/KNEE REGION Left 09/26/2024 INCISION & DRAINAGE ABSCESS OR HEMATOMA, THIGH, KNEE SUPERFICIAL (WRVU 6.78) performed by Hayley Torres MD at [facility] MAIN OR PRO REVISION FEMORAL ANAST BPG GROIN OPEN W/NONAUTOG PATCH GRAFT Left 09/28/2024 REV. FEM. ANASTOMOSIS OF SYN. BYPASS GRAFT USING NONAUTOGENOUS PATCH ANGIOPLASTY-JENNIFER (WRVU 23.15) performed by Hayley Torres MD at [facility] MAIN OR PRO UNLISTED PROCEDURE VASCULAR SURGERY Left 09/28/2024 HARVEST SAPHENOUS VEIN (WRVU 13.24) performed by Hayley Torres MD at [facility] MAIN OR VS ARTERIOGRAM LOWER EXTREMITY VASCULAR SURGERY 07/20/2024 VS Arteriogram Lower Extremity Vascular Surgery 07/20/2024 Anabel Finney MD [facility] INTERVENTION[facility] RAD Social History: Patient lives [...] Pt issued and educated on use of glass deposition tender for glass deposition tender lower items. Self-feeding: Independent Grooming: Set up [...] Discharge planning Total Minutes, Occupational Therapy: 35 ([phone]) OT Evaluation Code Rationale: Diagnosis & Pertinent Co-Morbidities affecting Plan of Care: see PMHx Occupational Profile & Client History: Brief Expanded Extensive x Assessment of Occupational Performance: 1-3 performance deficits 3-5 performance deficits x 5 + performance deficits Clinical Decision Making: Low Moderate High x Clinical decision making of low complexity using standardized patient assessment instrument and measurable assessment of functional outcome. Pager: [phone] Jorge Goetz OT 10/03/2024 Occupational Therapy Rehabilitation [...] Mccormick MD - 10/02/2024 2:06 PM EST [facility] Operative Note Patient Name: Geovanna Dixon Jr. : [id number] MR#: [id number] Case Date: 10/02/2024 Surgeon: Surgeons and Role: [...] amputation who was transferred from [facility] given concern for infected left fem-BK [...] the groin, we then attached a 15 German Jose drain to the [place] drain, and remove the Yung drain, replacing it with the 15 German Jose drain. In a similar way we [...] through: Primary Insurance: [employer] MANAGED MEDICARE Payor: [employer] MANAGED MEDICARE / Plan: [employer] MANAGED MEDICARE PPO / Product Type: *No Product type* / Secondary Insurance: N/A Plan for discharge is: Pending Hospital Course and PT/OT Recommendations Outpatient Agency/Support Group Needs: None Home Health Services: Occupational Therapy, Physical Therapy, Registered Nurse Agency Referrals: [facility] Agency [facility]. [address] [place] [phone] Transportation: family or friend will provide Barriers to discharge: Global: Denies needs/concerns at this time Plan: Patient is not medically ready related to: patient is going to the OR today for a washout andremains on blowout precautions. Plan going forward is: when able patient will need to work with PT/OT Anticipated Date of Discharge: 10/10/2024 Penny ROSAS RN CM Phone: [phone] Pager: [phone] * Plan of Care - Heidi Mobley [...] * Consult Note - Katelyn Oconnor [facility] - 09/30/2024 7:43 AM EST [facility] Pharmacokinetics Note Drug: Vancomycin Pharmacokinetic target: AUC24 (range) 400-600 mg/L.hr Current regimen: 1500 mg IV every 8 hours Geovanna Dixon is a(n) 49 years old male receiving Vancomycin 1500 mg IV every 8 hours for bacteremia Recent measured serum creatinine values: 09/29/2024 23:52 0.48 mg/dL 09/28/2024 23:51 0.52 mg/dL 09/27/2024 23:58 0.48 mg/dL Assessment: Analysis of the most recent level(s) using [employer] gives the following patient-specific pharmacokinetic parameters: CL: [...] Katelyn Oconnor Electronically signed by Katelyn Oconnor [facility] at 09/30/2024 7:45 AM EST * Plan of Care - Candie Plata RN - 09/29/2024 6:30 PM EST OUTCOME SUMMARY: Pt down to OR~1400, returned ~1540. VSS on RA. Denies pain. Q1NV unchanged. PLAN MOVING FORWARD: Pain management as needed. OR Wednesday? * Op Note - Anabel Finney MD - 09/29/2024 2:41 PM EST [facility] Operative Note Patient Name: Geovanna Dixon Jr. : [id number] MR#: [id number] Case Date: 09/29/2024 Surgeon: Surgeons and Role: [...] amputation who was transferred from [facility] given concern for infected left fem-BK [...] mobilized and explored. The area around the TELEPHONE DIRECTORY DELIVERER was irrigated copiously. The flap was then [...] closed with interrupted vicryl sutures and cameron. [place] were also placed at the superior aspect [...] Therapy, Physical Therapy, Registered Nurse Agency Referrals: [facility]. [address] [place] [address] Transportation: family or friend will provide Barriers [...] Discharge: 10/04/2024 Penny ROSAS RN CM Phone: [phone] Pager: [phone] * Consult Note - Rose Wright APRN [...] amputation who was transferred from [facility] given concern for infected left fem-BK [...] smoking 1 week ago. He presented to [facility] on 09/26 and went to [...] Procedure Component Value - Date/Time Blood culture [[id number]] (Abnormal) Collected: 09/27/242132 Lab Status: Preliminary result Specimen: Blood, Venous Updated: 09/29/24 0721 Blood Culture Methicillin Resistant Staphylococcus aureus Gram Stain Aerobic Bottle: Gram positive cocci in clusters Blood culture [[id number]] (Abnormal) Collected: 09/26/24 1845 Lab Status: Preliminary result Specimen: Blood, Venous Updated: 09/29/24 0719 Blood Culture Methicillin Resistant Staphylococcus aureus Comment: isolated. Susceptibilities previously reported. Gram Stain Aerobic Bottle: Gram positive cocci in clusters Blood culture [[id number]] (Abnormal) (Susceptibility) Collected: 09/26/24 1422 Lab Status: Preliminary result Specimen: Blood, Venous Updated: 09/29/24 0717 Blood Culture Methicillin Resistant Staphylococcus aureus Comment: detected by PCR Isolate saved. If future testing is required, contact the Microbiology Fulling Machine Operator. Gram Stain Aerobic Bottle: Gram positive cocci in clusters Susceptibility Methicillin Resistant Staphylococcus aureus VITEK 2 METHOD Clindamycin Resistant Gentamicin Susceptible [1] Linezolid Susceptible Oxacillin Resistant Trimethoprim/Sulfa Susceptible Vancomycin Susceptible [1] Gentamicin is not appropriate for monotherapy for gram-positive infections. AFB culture [[id number]] Collected: 09/27/24 1654 Lab Status: Preliminary result Specimen: Tissue from Thigh, Left Updated: 09/28/24 2226 Acid Fast Stain No acid fast bacilli seen Anaerobic Culture [[id number]] Collected: 09/27/24 165 Lab Status: Preliminary result Specimen: Tissue from Thigh, Left Updated: 09/28/24 1355 Anaerobic Culture No anaerobic organisms isolated to date Sonicated Tissue/Implant Culture [[id number]] Collected: 09/26/24 1716 Lab Status: Preliminary result Specimen: Vascular Graft from Leg, Left Updated: 09/28/24 1323 Sonicated Tissue/Implant Culture Culture in progress Tissue Culture, Aerobic Only [[id number]] (Abnormal) Collected: 09/27/24 1654 Lab Status: Preliminary result Specimen: Tissue from Thigh, Left Updated: 09/28/24 1049 Tissue Culture Rare Staphylococcus aureus Gram Stain Few Neutrophils seen No microorganisms seen Abscess/Wound Aspirate Culture, Aerobic Only [[id number]] (Abnormal) (Susceptibility) Collected: 09/26/24 1702 Lab Status: [...] to doxycycline. Abscess/Wound Aspirate Culture, Aerobic Only [[id number]] (Abnormal) (Susceptibility) Collected: 09/26/241649 Lab Status: Preliminary [...] is considered susceptible to doxycycline. Fungus culture [[id number]] Collected: 09/27/241653 Lab Status: Preliminary result Specimen: Tissue from Thigh, Left Updated: 09/28/24 0748 Fungus Culture No fungus isolated to date AFB culture [[id number]] Collected: 09/26/241701 Lab Status: Preliminary result Specimen: Abscess from Knee, Left Updated: 09/27/24 2335 Acid Fast Stain No acid fast bacilli seen MRSA PCR Screen [[id number]] (Abnormal) Collected: 09/27/24 0751 Lab Status: Final result Specimen: Swab from Nares Updated: 09/27/24 1156 MRSA PCR Detected Narrative: This test was performed using the Xpert MRSA NxG test kit and is run on the [employer] GeneXBasharJ[employer] Dx System. This test is cleared by the U.S. Food and Drug Administration for clinical use and its performance characteristics have been verified by the [facility] at [facility]. Anaerobic Culture [[id number]] Collected: 09/26/241649 Lab Status: Preliminary result Specimen: Abscess from Groin, Left Updated: 09/27/24 1142 Anaerobic Culture No anaerobic organisms isolated to date Anaerobic Culture [[id number]] Collected: 09/26/241701 Lab Status: Preliminary result Specimen: Abscess from Knee, Left Updated: 09/27/24 1142 Anaerobic Culture No anaerobic organisms isolated to date Fungus culture [[id number]] Collected: 09/26/24 1650 Lab Status: Preliminary result Specimen: Abscess from Groin, Left Updated: 09/27/24726 Fungus Culture No fungus isolated to date Fungus culture [[id number]] Collected: 09/26/24 1702 Lab Status: Preliminary result Specimen: Abscess from Knee, Left Updated: 09/27/24726 Fungus Culture No fungus isolated to date New Studies Results for orders placed or performed during the hospital encounter of 09/26/[address] Read CT Lower Extremity (Exam End: 09/26/2024 1:50 PM) Result Value WORKSTATION ID [id number] Impression 1. There is a left femoral [...] who have questions please contact the health resident care director that requested your imaging first. Electronically signed by: Lisette Bruno MD, [facility] ([phone]), at 09/26/2024 3:[address] Lower Extremity w Contrast Left (Exam End: 09/27/2024 9:16 AM) Result Value WORKSTATION ID [id number] Impression IMPRESSION: 1. Interval explant of LEFT [...] who have questions please contact the health resident care director that requested your imaging first. Electronically signed by: Ignacia Chi MD, [facility] ([phone]), at 09/27/2024 10:48 AM 09/28 ABIs Interpretation: [...] amputation who was transferred from [facility] given concern for infected left fem-BK [...] Torres MD - 09/28/2024 12:23 PM EST [facility] Operative Note Patient Name: Geovanna Dixon Jr. : [id number] MR#: [id number] Case Date: 09/28/2024 Surgeon: Surgeons and Role: [...] pericardial patch and PTFE willard over the TELEPHONE DIRECTORY DELIVERER was unincorporated. - Resection of prior femoral [...] Destination 1 : Left femoral proximal graft Vice President Biostatistics Leg, Left SURGICAL PATHOLOGY Hayley Torres MD 09/28/2024 1410 2 : Left distal BK pop graft Vice President Biostatistics Leg, Left SURGICAL PATHOLOGY Hayley Torres MD [...] Indications: 49M with history of a left TELEPHONE DIRECTORY DELIVERER-BK popliteal artery bypass with PTFE performed in [...] solution. Systemic heparin was administered. Next, the TELEPHONE DIRECTORY DELIVERER, SFA, and DFA were clamped. An 11-blade scalpel was used to excise the PTFE graft willard and the prior bovine pericardial patch, and all prior Prolene sutures were removed. Residual plaque in the arterial lumen was removed using a [place] elevator. The harvested vein patch was cut [...] the midline with division of the first mortuary operations manager, such that the sartorius muscle was free [...] Torres MD - 09/28/2024 12:23 PM EST [facility] Operative Note Patient Name: Geovanna Dixon JrFlorencio : [id number] MR#: [id number] Case Date: 09/28/2024 Surgeon: Surgeons and Role: [...] - Prior bovine pericardial patch over the TELEPHONE DIRECTORY DELIVERER was unincorporated. - Resection of prior femoral [...] * Consult Note - Tea Nguyen, [facility] - 09/28/2024 9:23 AM EST Drug: Vancomycin [...] Analysis of the most recent level(s) using [employer] gives the following patient-specific pharmacokinetic parameters: CL: [...] Note Patient Name: Geovanna Dixon Jr. : [id number] MR#: [id number] Case Date: 09/27/2024 Surgeon: Surgeons and Role: [...] AEROBIC & ANAEROBIC Hayley Torres MD 09/27/2024 4104 Fluids: Intraprocedure Crystalloid Total None PRBCs: none [...] Torres MD - 09/27/2024 4:27 PM EST [facility] Operative Note Patient Name: Geovanna Dixon Jr. : [id number] MR#: [id number] Case Date: 09/26/2024 Surgeon: Surgeons and Role: [...] HPI/Surgical Indications: 49M with history of left TELEPHONE DIRECTORY DELIVERER-BK popliteal artery bypass graft with PTFE (July [...] Torres MD - 09/27/2024 4:27 PM EST [facility] Operative Note Patient Name: Geovanna Dixon Jr. : [id number] MR#: [id number] Case Date: 09/27/2024 Surgeon: Surgeons and Role: [...] amputation who was transferred from [facility] given concern for infected left fem-BK [...] smoking 1 week ago. He presented to [facility] on 09/26 and went to [...] management and to provide a review of shelter diabetes care. Glargine 25 units administered this [...] outpatient diabetes regimen: Diabetes Provider: PCP in [facility] Medications: Lantus 50 units, lispro [...] Cunningham APRN Endocrinology Diabetes Management Service Pager: [phone] Weekends please page [phone] 80 minute visit was spent in counseling [...] surrogate would be surrogate decision maker per [place] surrogate decision making law. (Only good for 180 days) Any patient receiving care in [place] must abide by [place] law. The hierarchy for surrogate decision making [...] (i) The agent with financial power of bankruptcy attorney or a conservator appointed in accordance [...] In the past 12 months has the [employer], gas, oil, or water [employer] threatened to shut off services in your [...] DME: none Home Address confirmed as: [address] [place] [phone] Social & Family Supports: All names listed [...] his home before. Health/Prescription Coverage: Primary Insurance: [employer] MANAGED MEDICARE Payor: [employer] MANAGED MEDICARE / Plan: [facility]NA[facility]IC[facility] PPO / Product Type: *No Product type* / Secondary Insurance: N/A ; Prescription Coverage: Yes Preferred Pharmacy: [facility] - [place], [place] - [address] [place] [address] [place] [id number] [facility] - [place], [place] - [address] [facility] [address] [facility] [address] [place], [place] - [address] [facility] [address] [facility] [address] [facility] [address] [place] Status: Patient is a : No Primary Care Provider confirmed: JUSTIN Roberson [phone] Patient/Caregiver Goals of Treatment: patient will need [...] where referrals are placed. Provided patient with [facility] Star Quality Rating handout. They have requested referrals to: [facility]. [address] [place] [address] Expected date of discharge: TBD Referral routed to the Covering And Lining Supervisor for matching with agency/vendor and to [...] care as indicated. Penny ROSAS, RN Phone: [phone] Pager: [phone] * Consult Note - Stacey Thomas MD [...] prompting him to go to [facility]. The groin pain dissipated. About a week later on 09/26 he developed left-sided groin pain prompting him to go to [facility] once again. Lab work notable for WBC count of 21, lactic acid 3.6. He underwent evaluation with a CT scan demonstrating an abscess from the left groin operative site the entire left of the graft down by the knee. He was transferred to [facility] for further care and he was initiated [...] 3.51) performed by Thony Garcia MD at [facility] MAIN OR PRO BYPASS GRAFT OTHR, FEM-TIBIAL Left 08/01/2024 @BYPASS GRAFT, FEM-ANT TIBIAL, -POST TIBIAL, -PERONEAL, -DP W\ SYNTHETIC CONDUIT (WRVU 23.66) performed by Lisette Maldonado MD at [facility] MAIN OR PRO CABG, ARTERY-VEIN, SINGLE 01/04/2012 @CABG, VENOUS & ARTERIAL GRAFT;SINGLE VEIN GRAFT performed by INNA TOVAR at [facility] MAIN OR PRO ENDOSCOPY W/VIDEO-ASST VEIN HARVEST, CABG 01/04/2012 ENDOSCOPIC HARVEST VEIN(S) FOR CABG performed by INNA TOVAR at [facility] MAIN OR VS ARTERIOGRAM LOWER EXTREMITY VASCULAR SURGERY 07/20/2024 VS Arteriogram Lower Extremity Vascular Surgery 07/20/2024 Anabel Finney MD [facility] RAD Medications: potassium chloride ER [...] Subcutaneous Nightly acetaminophen 975 mg Oral Q6H JOES insulin lispro 2-12 Units Subcutaneous Q4H JOSE [...] SICU as a transfer from [facility] for suspected graft infection/sepsis. A/Ox4, able [...] Torres MD - 09/26/2024 4:50 PM EST [facility] Operative Note Patient Name: Geovanna Dixon Jr. 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 Postoperative diagnosis: left infected femoral to below knee bypass graft Procedure: Explant of infected LEFT TELEPHONE DIRECTORY DELIVERER to below-knee popliteal artery PTFE bypass graft [...] Indications: 49M with history of a left TELEPHONE DIRECTORY DELIVERER-BK popliteal artery bypass with PTFE performed in [...] amputation who was transferred from [facility] given concern for infected left fem-BK [...] 3.51) performed by Thony Garcia MD at [facility] MAIN OR PRO BYPASS GRAFT OTHR, FEM-TIBIAL Left 08/01/2024 @BYPASS GRAFT, FEM-ANT TIBIAL, -POST TIBIAL, -PERONEAL, -DP W\ SYNTHETIC CONDUIT (WRVU 23.66) performed by Lisette Maldonado MD at [facility] MAIN OR PRO CABG, ARTERY-VEIN, SINGLE 01/04/2012 @CABG, VENOUS & ARTERIAL GRAFT;SINGLE VEIN GRAFT performed by INNA TOVAR at [facility] MAIN OR PRO ENDOSCOPY W/VIDEO-ASST VEIN HARVEST, CABG 01/04/2012 ENDOSCOPIC HARVEST VEIN(S) FOR CABG performed by INNA TOVAR at [facility] MAIN OR VS ARTERIOGRAM LOWER EXTREMITY VASCULAR SURGERY 07/20/2024 VS Arteriogram Lower Extremity Vascular Surgery 07/20/2024 Anabel Finney MD [facility] RAD Social Hx: Social History [...] 3 times daily. Use as instructed Indications: [id number] each 1 FreeStyle Lancets 28 gauge Misc [...] amputation who was transferred from [facility] given concern for infected left fem-BK [...] PM EST Office [place] [address] Isabela Hayward APRN [facility] [place] [address] 11/10/2024 10:00 AM EST Office [place] [address] Dai Whitman APRN 11/21/2024 2:15 PM EST Office [place] [address] Dayanara rGover MD [facility] [place] [address] Pending Results Name Type Priority Associated Diagnoses [...] 10 PM EST Excision, Infec Graft, Extremity (37442) 09/28/2024 11:28 AM EST Infected explanted left leg bypass graft Form Skin Pedicle Flap Scalp, Arm, Leg ([id number]) 09/28/2024 11:28 AM EST Infected explanted left leg bypass graft Unlisted Procedure Vascular Surgery ([id number]) 09/28/2024 11:28 AM EST Infected explanted left leg bypass graft Revision Femoral Anast Bpg Groin Open W/Nonautog Patch Graft ([id number]) 09/28/2024 11:28 AM EST Infected explanted left [...] Non-fasting (10/16/2024) Glucose Lvl - External 124(H) [facility] Blood Urea Nitrogen - External 17 [facility] Creatinine - External 0.9 [facility] EGFR - External 104.05 [facility] Anion Gap - External 11.6(H) [facility] Sodium - External 141 [facility] Potassium - External 4.3 [facility] Chloride - External 103 [facility] CO2 - External 26.4 [facility] Calcium - External 9.0 [facility] Protein, Total - External 6.9 [facility] Albumin - External 3.0(L) [facility] Total Bilirubin - External 0.20 [facility] Alk Phos - External 124(H) [facility] AST (SGOT) - External 12 [facility] ALT (SGPT) - External 22 [facility] Blood VENOUS BLOOD SPECIMEN / Unknown 10/16/2024 Amaya Hernandez MD CHEMISTRY ORDERABLES [address] [place], [place] [address] [phone] * CK (10/16/2024) CK, Total - External 39 [facility] Blood VENOUS BLOOD SPECIMEN / Unknown 10/16/2024 Amaya Hernandez MD CHEMISTRY ORDERABLES [address] [place], [place] [address] [phone] * (ABNORMAL) CBC (with Diff) (10/16/2024) WBC - External 10.99(H) [facility] RBC - External 3.71(L) [facility] Hemoglobin - External 10.8(L) [facility] Hematocrit - External 33.8(L) [facility] MCV - External 91 [facility] MCH - External 29.1 [facility] MCHC - External 32.0 [facility] RDWCV - External 14.2(H) [facility] Platelets - External 512(H) [facility] MPV - External 9.8 [facility] NRBC % - External 0.0 [facility] NRBC Abs - External 0.0 [facility] Neutrophils % - External 64.2 [facility] Lymphocytes % - External 25.8 [facility] Monocytes % - External 6.8 [facility] Eosinophils % - External 2.0 [facility] Basophils % - External 0.9 [facility] Immature Gran % - External 0.3 [facility] Neutr ABS (ANC) - External 7.06(H) [facility] Lymphocyte ABS - External 2.84 [facility] Monocyte ABS - External 0.75 [facility] Eosinophil ABS - External 0.22 [facility] Basophil ABS - External 0.10 [facility] Blood VENOUS BLOOD SPECIMEN / Unknown 10/16/2024 Amaya Hernandez MD HEMATOLOGY ORDERABLE S [address] [place], [place] [address] [phone] * POC, GLUCOSE (10/10/2024 4:27 PM EST) Glucometer, POC 172 65 - 199 mg/dL 10/10/2024 4:27 PM EST [facility] Comment:Supplemental ranges: <140 mg/dL before meals <180 mg/dL all other times of the day. Blood CAPILLARY BLOOD / Unknown 10/10/2024 4:27 PM EST 10/10/2024 4:27 PM EST Hayley Torres MD POINT OF CARE TEST O GILDA Performing Organization Address City/[facility]/ZIP Co de Phone Number [facility] [place] [address] * POC, GLUCOSE (10/10/2024 11:10 AM EST) Glucometer, POC 174 65 - 199 mg/dL 10/10/2024 11:11 AM EST [facility] Comment:Supplemental ranges: <140 mg/dL before meals <180 mg/dL all other times of the day. Blood CAPILLARY BLOOD / Unknown 10/10/2024 11:10 AM EST 10/10/2024 11:11 AM EST Hayley Torres MD POINT OF CARE TEST O GILDA Performing Organization Address [facility] Co de Phone Number [facility] [place] [address] * POC, GLUCOSE (10/10/2024 7:46 AM EST) Glucometer, POC 141 65 - 199 mg/dL 10/10/2024 7:46 AM EST [facility] Comment:Supplemental ranges: <140 mg/dL before meals <180 mg/dL all other times of the day. Blood CAPILLARY BLOOD / Unknown 10/10/2024 7:46 AM EST 10/10/2024 7:46 AM EST Hayley Torres MD POINT OF CARE TEST O GILDA Performing Organization Address City/[facility]/ZIP Co de Phone Number [facility] [place] [address] * POC, GLUCOSE (10/10/2024 6:11 AM EST) Pathologist [facility] Glucometer, POC 127 65 - 199 mg/dL 10/10/2024 6:11 AM EST [facility] Comment:Supplemental ranges: <140 mg/dL before meals <180 mg/dL all other times of the day. Blood CAPILLARY BLOOD / Unknown 10/10/2024 6:11 AM EST 10/10/2024 6:11 AM EST Hayley Torres MD POINT OF CARE TEST O RDERABLES [facility] [place] [address] * CK (10/10/2024 12:33 AM EST) [facility] Creatine Kinase 32 0 - 200 unit/L 10/10/2024 8:54 AM EST [facility] Blood VENOUS BLOOD SPECIMEN / Unknown Venipuncture / Unknown 10/10/2024 12:33 AM EST 10/10/2024 12:43 AM EST María Carranza APRN CHEMISTRY ORDER RANDELL [facility] [place] [address] * (ABNORMAL) CBC (with Diff) (10/10/2024 12:33 AM EST) [facility] White Blood Cell 11.57(H) 4.00 - 9.50 x10(3)/mc L 10/10/2024 12:48 AM EST [facility] Red Blood Cell 3.75(L) 4.58 - 5.54 x10(6)/mc L 10/10/2024 12:48 AM EST [facility] Hemoglobin 11.1(L) 13.7 - 16.5 g/dL 10/10/2024 12:48 AM EST [facility] Hematocrit 33.5(L) 40.5 - [...] - 0.90 x10(3)/mc L 10/10/2024 12:48 AM EST [facility] Eos % 1.6 % 10/10/2024 12:48 AM EST [facility] Eos Absolute 0.19 0.00 - 0.40 x10(3)/mc L 10/10/2024 12:48 AM EST [facility] Basophil % 1.0 % [...] HEMATOLOGY ORDERABLE S [facility] [place] [address] * (ABNORMAL) Basic Metabolic Panel (10/10/2024 12:33 AM EST) Glucose 125 65 - 199 mg/dL 10/10/2024 1:12 AM [facility] Comment:Glucose Concentratio n >=200 mg/dL plus symptoms is consistent with Diabetes Mellitus. Blood Urea Nitrogen 19 10 - 20 mg/dL 10/10/2024 1:12 AM EST [facility] Creatinine 0.57(L) 0.80 - 1.50 mg/dL 10/10/2024 1:12 AM [facility] Sodium 138 135 - 145 mMol/L 10/10/2024 1:12 AM [facility] Potassium 4.1 3.5 - 5.0 mMol/L 10/10/2024 1:12 AM EST [facility] Chloride 103 98 - 107 mMol/L 10/10/2024 1:12 AM EST [facility] Carbon Dioxide 25 22 - 31 mMol/L 10/10/2024 1:12 AM [facility] Anion Gap 10 5 - 15 mMol/L 10/10/2024 1:12 AM EST [facility] Calcium 9.4 8.5 - 10.5 mg/dL 10/10/2024 1:12 AM EST [facility] Est Glomerular Filtration Rate - Male 119 mL/min/1. 73 m?? 10/10/2024 1:12 AM EST [facility] Comment: [...] MD CHEMISTRY ORDERABLES [facility] [place] [address] * Phosphorus (10/10/2024 12:33 AM EST) Phosphorus 3.8 2.5 - 4.5 mg/dL 10/10/2024 1:12 AM EST [facility] Blood VENOUS BLOOD SPECIMEN / Unknown Venipuncture / Unknown 10/10/2024 12:33 AM EST 10/10/2024 12:43 AM EST Hayley Torres MD CHEMISTRY ORDERABLES Performing Organization Address City/[facility]/ZIP Co de Phone Number [facility] [place] [address] * Magnesium (10/10/2024 12:33 AM EST) Magnesium 0.81 0.69 - 1.07 mMol/L 10/10/2024 1:12 AM EST [facility] Blood VENOUS BLOOD SPECIMEN / Unknown Venipuncture / Unknown 10/10/2024 12:33 AM EST 10/10/2024 12:43 AM EST Hayley Torres MD CHEMISTRY ORDERABLES Performing Organization Address [facility] Co de Phone Number [facility] [place] [address] * POC, GLUCOSE (10/10/2024 12:31 AM EST) Glucometer, POC 119 65 - 199 mg/dL 10/10/2024 12:32 AM EST [facility] Comment:Supplemental ranges: <140 mg/dL before meals <180 mg/dL all other times of the day. Blood CAPILLARY BLOOD / Unknown 10/10/2024 12:31 AM EST 10/10/2024 12:32 AM EST Hayley Torres MD POINT OF CARE TEST O RDERABLES Performing Organization Address City/[facility]/ZIP Co de Phone Number [facility] [place] [address] * POC, GLUCOSE (10/09/2024 8:16 PM EST) Glucometer, POC 104 65 - 199 mg/dL 10/09/2024 8:16 PM EST [facility] Comment:Supplemental ranges: <140 mg/dL before meals <180 mg/dL all other times of the day. Blood CAPILLARY BLOOD / Unknown 10/09/2024 8:16 PM EST 10/09/2024 8:16 PM EST Hayley Torres MD POINT OF CARE TEST O GILDA Performing Organization Address [facility] Co de Phone Number [facility] [place] [address] * POC, GLUCOSE (10/09/2024 3:57 PM EST) Glucometer, POC 120 65 - 199 mg/dL 10/09/2024 3:57 PM EST [facility] Comment:Supplemental ranges: <140 mg/dL before meals <180 mg/dL all other times of the day. Blood CAPILLARY BLOOD / Unknown 10/09/2024 3:57 PM EST 10/09/2024 3:57 PM EST Hayley Torres MD POINT OF CARE TEST O GILDA Performing Organization Address [facility] [[email or web address]] de Phone Number [facility] [place] [address] * Place PICC Line: Contact Vascular Access Page [phone] Extremity to exclude: No restrictions; Is PICC [...] to the planned procedure. Hand Hygiene: The area captain did perform hand hygiene prior to line insertion. Catheter type: PICC Lot number: [id number] Procedure Technique: Skin was prepped with chlorhexidine. [...] Guidance (IV Team) (10/09/2024 1:55 PM EST) [employer] WORKSTATION ID [id number] RAD Anatomical Region Laterality Modality N/A Radio [...] who have questions please contact the health resident care director that requested your imaging first. ? Electronically signed by: Terell Salvador MD, [facility] ([phone]), at 10/09/2024 3:30 PM Narrative 10/09/2024 3:30 [...] patients who have questions please contactthe health resident care director that requested your imaging first. Electronically signed by: Terell Salvador MD, [facility]([phone]), at 10/09/2024 3:30 PM María Carranza APRN IMG FLUORO ORDE RABLES * POC, GLUCOSE (10/09/2024 11:40 AM EST) [facility] Glucometer, POC 180 65 - 199 mg/dL 10/09/2024 11:40 AM EST [facility] Comment:Supplemental ranges: <140 mg/dL before meals <180 mg/dL all other times of the day. Blood CAPILLARY BLOOD / Unknown 10/09/2024 11:40 AM EST 10/09/2024 11:41 AM EST Hayley Torres MD POINT OF CARE TEST O RDERAHERNANDEZ Performing Organization Address City/[facility]/ZIP Co de Phone Number [facility] [place] [address] * (ABNORMAL) POC, GLUCOSE (10/09/2024 7:35 AM EST) Glucometer, POC 215(H) 65 - 199 mg/dL 10/09/2024 7:36 AM EST [facility] Comment:Supplemental ranges: <140 mg/dL before meals <180 mg/dL all other times of the day. Blood CAPILLARY BLOOD / Unknown 10/09/2024 7:35 AM EST 10/09/2024 7:36 AM EST Hayley Torres MD POINT OF CARE TEST O GILDA Performing Organization Address [facility] Co de Phone Number [facility] [place] [address] * POC, GLUCOSE (10/09/2024 4:26 AM EST) Glucometer, POC 175 65 - 199 mg/dL 10/09/2024 4:26 AM EST [facility] Comment:Supplemental ranges: <140 mg/dL before meals <180 mg/dL all other times of the day. Blood CAPILLARY BLOOD / Unknown 10/09/2024 4:26 AM EST 10/09/2024 4:26 AM EST Hayley Torres MD POINT OF CARE TEST O RDERAHERNANDEZ Performing Organization Address City/[facility]/ZIP Co de Phone Number [facility] [place] [address] * (ABNORMAL) CBC (with Diff) (10/09/2024 12:45 [facility] Basophil % 1.1 % 10/09/2024 1:31 [...] HEMATOLOGY ORDERABLE S [facility] [place] [address] * (ABNORMAL) Basic Metabolic Panel (10/09/2024 12:45 [facility] Anion Gap 12 5 - 15 mMol/L 10/09/2024 1:54 AM [facility] Calcium 9.4 8.5 - 10.5 mg/dL 10/09/2024 1:54 AM [facility] Est Glomerular Filtration Rate - Male 122 mL/min/1. 73 m?? 10/09/2024 1:54 AM [facility] MD CHEMISTRY ORDERABLES [facility] [place] [address] * Phosphorus (10/09/2024 12:45 AM EST) Phosphorus 3.9 2.5 - 4.5 mg/dL 10/09/2024 1:54 AM EST [facility] Blood VENOUS BLOOD SPECIMEN / Unknown Venipuncture / Unknown 10/09/2024 12:45 AM EST 10/09/2024 1:27 AM EST Hayley Torres MD CHEMISTRY ORDERABLES Performing Organization Address [facility] Co de Phone Number [facility] [place] [address] * Magnesium (10/09/2024 12:45 AM EST) Magnesium 0.80 0.69 - 1.07 mMol/L 10/09/2024 1:54 AM EST [facility] Blood VENOUS BLOOD SPECIMEN / Unknown Venipuncture / Unknown 10/09/2024 12:45 AM EST 10/09/2024 1:27 AM EST Hayley Torres MD CHEMISTRY ORDERABLES Performing Organization Address City/[facility]/ZIP Co de Phone Number [facility] [place] [address] * POC, GLUCOSE (10/09/2024 12:11 AM EST) Glucometer, POC 157 65 - 199 mg/dL 10/09/2024 12:11 AM EST [facility] Comment:Supplemental ranges: <140 mg/dL before meals <180 mg/dL all other times of the day. Blood CAPILLARY BLOOD / Unknown 10/09/2024 12:11 AM EST 10/09/2024 12:11 AM EST Hayley Torres MD POINT OF CARE TEST O GILDA Performing Organization Address [facility] Co de Phone Number [facility] [place] [address] * POC, GLUCOSE (10/08/2024 7:25 PM EST) Glucometer, POC 157 65 - 199 mg/dL 10/08/2024 7:25 PM EST [facility] Comment:Supplemental ranges: <140 mg/dL before meals <180 mg/dL all other times of the day. Blood CAPILLARY BLOOD / Unknown 10/08/2024 7:25 PM EST 10/08/2024 7:25 PM EST Hayley Torres MD POINT OF CARE TEST O GILDA Performing Organization Address [facility] Co de Phone Number [facility] [place] [address] * POC, GLUCOSE (10/08/2024 5:54 PM EST) Glucometer, POC 198 65 - 199 mg/dL 10/08/2024 5:54 PM EST [facility] Comment:Supplemental ranges: <140 mg/dL before meals <180 mg/dL all other times of the day. Blood CAPILLARY BLOOD / Unknown 10/08/2024 5:54 PM EST 10/08/2024 5:54 PM EST Hayley Torres MD POINT OF CARE TEST O GILDA Performing Organization Address City/[facility] Co de Phone Number [facility] [place] [address] * (ABNORMAL) POC, GLUCOSE (10/08/2024 4:08 PM EST) Glucometer, POC 281(H) 65 - 199 mg/dL 10/08/2024 4:08 PM EST [facility] Comment:Supplemental ranges: <140 mg/dL before meals <180 mg/dL all other times of the day. Blood CAPILLARY BLOOD / Unknown 10/08/2024 4:08 PM EST 10/08/2024 4:09 PM EST Hayley Torres MD POINT OF CARE TEST O GILDA [facility] [place] [address] * POC, GLUCOSE (10/08/2024 12:44 PM EST) Glucometer, POC 146 65 - 199 mg/dL 10/08/2024 12:44 PM EST [facility] Comment:Supplemental ranges: <140 mg/dL before meals <180 mg/dL all other times of the day. Blood CAPILLARY BLOOD / Unknown 10/08/2024 12:44 PM EST 10/08/2024 12:44 PM EST Hayley Torres MD POINT OF CARE TEST O GILDA Performing Organization Address City/[facility]/ZIP Co de Phone Number [facility] [place] [address] * POC, GLUCOSE (10/08/2024 8:30 AM EST) Glucometer, POC 172 65 - 199 mg/dL 10/08/2024 8:30 AM EST [facility] Comment:Supplemental ranges: <140 mg/dL before meals <180 mg/dL all other times of the day. Blood CAPILLARY BLOOD / Unknown 10/08/2024 8:30 AM EST 10/08/2024 8:30 AM EST Hayley Torres MD POINT OF CARE TEST O GILDA [facility] [place] [address] * Vancomycin Level, Random (10/08/2024 5:59 AM EST) Vancomycin, Random 6.8 mg/L 2023 7:58 AM EST [facility] Comment:This level is for de termination of the patient's vancomycin rkmg-qetlo-deo-curve (AUC) value. Contact the inpatient pharmacy for interpretation. Blood VENOUS BLOOD SPECIMEN / Unknown Venipuncture / Unknown 10/08/2024 5:59 AM EST 10/08/2024 7:29 AM EST Hayley Torres MD CHEMISTRY ORDERABLES Performing Organization Address City/[facility]/ZIP Co de Phone Number [facility] [place] [address] * POC, GLUCOSE (10/08/2024 4:02 AM EST) Glucometer, POC 163 65 - 199 mg/dL 10/08/2024 4:02 AM EST [facility] Comment:Supplemental ranges: <140 mg/dL before meals <180 mg/dL all other times of the day. Blood CAPILLARY BLOOD / Unknown 10/08/2024 4:02 AM EST 10/08/2024 4:02 AM EST Hayley Torres MD POINT OF CARE TEST O RDERABLES Performing Organization Address [facility]/ZIP Co de Phone Number [facility] [place] [address] * (ABNORMAL) CBC (with Diff) (10/08/2024 12:08 AM EST) White Blood Cell 10.35(H) 4.00 - 9.50 x10(3)/mc L 10/08/2024 12:29 AM EST [facility] Red Blood Cell 3.53(L) 4.58 - 5.54 x10(6)/mc L 10/08/2024 12:29 AM EST [facility] Hemoglobin 10.2(L) 13.7 - 16.5 g/dL 10/08/2024 12:29 AM EST [facility] Hematocrit 31.7(L) 40.5 - [...] 0.90 x10(3)/mc L 10/08/2024 12:29 AM EST [facility] Eos % 1.7 % 10/08/2024 12:29 AM EST [facility] Eos Absolute 0.18 0.00 - 0.40 x10(3)/mc L 10/08/2024 12:29 AM EST [facility] Basophil % 1.0 % [...] HEMATOLOGY ORDERABLE S [facility] [place] [address] * (ABNORMAL) Basic Metabolic Panel (10/08/2024 12:08 [...] 135 - 145 mMol/L 10/08/2024 12:50 AM EST [facility] Potassium 3.8 3.5 - 5.0 [...] MD CHEMISTRY ORDERABLES [facility] [place] [address] * Phosphorus (10/08/2024 12:08 AM EST) Phosphorus 3.4 2.5 - 4.5 mg/dL 10/08/2024 12:50 AM EST [facility] Blood VENOUS BLOOD SPECIMEN / Unknown Venipuncture / Unknown 10/08/2024 12:08 AM EST 10/08/2024 12:23 AM EST Hayley Torres MD CHEMISTRY ORDERABLES Performing Organization Address City/[facility]/ZIP Co de Phone Number [facility] [place] [address] * Magnesium (10/08/2024 12:08 AM EST) Magnesium 0.85 0.69 - 1.07 mMol/L 10/08/2024 12:50 AM EST [facility] Blood VENOUS BLOOD SPECIMEN / Unknown Venipuncture / Unknown 10/08/2024 12:08 AM EST 10/08/2024 12:23 AM EST Hayley Torres MD CHEMISTRY ORDERABLES Performing Organization Address City/[facility] Co de Phone Number [facility] [place] [address] * CK (10/08/2024 12:08 AM EST) Creatine Kinase 24 0 - 200 unit/L 10/08/2024 12:50 AM EST [facility] Blood VENOUS BLOOD SPECIMEN / Unknown Venipuncture / Unknown 10/08/2024 12:08 AM EST 10/08/2024 12:23 AM EST Hayley Torres MD CHEMISTRY ORDERABLES Performing Organization Address City/[facility]/ZIP Co de Phone Number [facility] [place] [address] * POC, GLUCOSE (10/08/2024 12:05 AM EST) Glucometer, POC 100 65 - 199 mg/dL 10/08/2024 12:05 AM EST [facility] Comment:Supplemental ranges: <140 mg/dL before meals <180 mg/dL all other times of the day. Blood CAPILLARY BLOOD / Unknown 10/08/2024 12:05 AM EST 10/08/2024 12:05 AM EST Hayley Torres MD POINT OF CARE TEST O RDERAHERNANDEZ Performing Organization Address [facility] Co de Phone Number [facility] [place] [address] * POC, GLUCOSE (10/07/2024 8:29 PM EST) Glucometer, POC 107 65 - 199 mg/dL 10/07/2024 8:30 PM EST [facility] Comment:Supplemental ranges: <140 mg/dL before meals <180 mg/dL all other times of the day. Blood CAPILLARY BLOOD / Unknown 10/07/2024 8:29 PM EST 10/07/2024 8:30 PM EST Hayley Torres MD POINT OF CARE TEST O GILDA Performing Organization Address [facility] Co de Phone Number [facility] [place] [address] * POC, GLUCOSE (10/07/2024 4:33 PM EST) Glucometer, POC 129 65 - 199 mg/dL 10/07/2024 4:33 PM EST [facility] Comment:Supplemental ranges: <140 mg/dL before meals <180 mg/dL all other times of the day. Blood CAPILLARY BLOOD / Unknown 10/07/2024 4:33 PM EST 10/07/2024 4:34 PM EST Hayley Torres MD POINT OF CARE TEST O GILDA Performing Organization Address [facility] Co de Phone Number [facility] [place] [address] * (ABNORMAL) POC, GLUCOSE (10/07/2024 10:58 AM EST) Glucometer, POC 221(H) 65 - 199 mg/dL 10/07/2024 10:59 AM EST [facility] Comment:Supplemental ranges: <140 mg/dL before meals <180 mg/dL all other times of the day. Blood CAPILLARY BLOOD / Unknown 10/07/2024 10:58 AM EST 10/07/2024 10:59 AM EST Hayley Torres MD POINT OF CARE TEST O GILDA Performing Organization Address [facility] Co de Phone Number [facility] [place] [address] * (ABNORMAL) POC, GLUCOSE (10/07/2024 7:42 AM EST) Glucometer, POC 201(H) 65 - 199 mg/dL 10/07/2024 7:42 AM EST [facility] Comment:Supplemental ranges: <140 mg/dL before meals <180 mg/dL all other times of the day. Blood CAPILLARY BLOOD / Unknown 10/07/2024 7:42 AM EST 10/07/2024 7:43 AM EST Hayley Torres MD POINT OF CARE TEST O GILDA Performing Organization Address [facility] [[email or web address]] de Phone Number [facility] [place] [address] * POC, GLUCOSE (10/07/2024 3:58 AM EST) Glucometer, POC 150 65 - 199 mg/dL 10/07/2024 3:58 AM EST [facility] Comment:Supplemental ranges: <140 mg/dL before meals <180 mg/dL all other times of the day. Blood CAPILLARY BLOOD / Unknown 10/07/2024 3:58 AM EST 10/07/2024 3:58 AM EST Hayley Torres MD POINT OF CARE TEST O GILDA Performing Organization Address [facility] Co de Phone Number [facility] [place] [address] * (ABNORMAL) CBC (with Diff) (10/07/2024 12:06 [...] HEMATOLOGY ORDERABLE S [facility] [place] [address] * (ABNORMAL) Basic Metabolic Panel (10/07/2024 12:06 [...] m?? 10/07/2024 12:40 AM [facility] MD CHEMISTRY ORDERABLES [facility] [place] [address] * Phosphorus (10/07/2024 12:06 AM EST) Phosphorus 4.2 2.5 - 4.5 mg/dL 10/07/2024 12:40 AM EST [facility] Blood VENOUS BLOOD SPECIMEN / Unknown Venipuncture / Unknown 10/07/2024 12:06 AM EST 10/07/2024 12:11 AM EST Hayley Torres MD CHEMISTRY ORDERABLES Performing Organization Address City/[facility]/ZIP Co de Phone Number [facility] [place] [address] * Magnesium (10/07/2024 12:06 AM EST) Magnesium 0.85 0.69 - 1.07 mMol/L 10/07/2024 12:40 AM EST [facility] Blood VENOUS BLOOD SPECIMEN / Unknown Venipuncture / Unknown 10/07/2024 12:06 AM EST 10/07/2024 12:11 AM EST Hayley Torres MD CHEMISTRY ORDERABLES Performing Organization Address [facility] Co de Phone Number [facility] [place] [address] * POC, GLUCOSE (10/07/2024 12:04 AM EST) Glucometer, POC 149 65 - 199 mg/dL 10/07/2024 12:04 AM EST [facility] Comment:Supplemental ranges: <140 mg/dL before meals <180 mg/dL all other times of the day. Blood CAPILLARY BLOOD / Unknown 10/07/2024 12:04 AM EST 10/07/2024 12:05 AM EST Hayley Torres MD POINT OF CARE TEST O RDERABLES Performing Organization Address City/[facility]/ZIP Co de Phone Number [facility] [place] [address] * POC, GLUCOSE (10/06/2024 7:24 PM EST) Glucometer, POC 151 65 - 199 mg/dL 10/06/2024 7:24 PM EST [facility] Comment:Supplemental ranges: <140 mg/dL before meals <180 mg/dL all other times of the day. Blood CAPILLARY BLOOD / Unknown 10/06/2024 7:24 PM EST 10/06/2024 7:24 PM EST Hayley Torres MD POINT OF CARE TEST O GILDA Performing Organization Address City/[facility]/ZIP Co de Phone Number [facility] [place] [address] * POC, GLUCOSE (10/06/2024 5:32 PM EST) Glucometer, POC 126 65 - 199 mg/dL 10/06/2024 5:32 PM EST [facility] Comment:Supplemental ranges: <140 mg/dL before meals <180 mg/dL all other times of the day. Blood CAPILLARY BLOOD / Unknown 10/06/2024 5:32 PM EST 10/06/2024 5:32 PM EST Hayley Torres MD POINT OF CARE TEST O GILDA Performing Organization Address City/[facility]/ZIP Co de Phone Number [facility] [place] [address] * XR PICC Placement Over 5 Years with Imaging Guidance (IV Team) (10/06/2024 3:04 PM EST) WORKSTATION ID [id number] DH RAD Anatomical Region Laterality Modality N/A [...] who have questions please contact the health resident care director that requested your imaging first. ? Electronically signed by: Charles Hamilton MD, [facility] ??([phone]), at 10/06/2024 3:43 PM Narrative 10/06/2024 3:43 [...] patients who have questions please contactthe health resident care director that requested your imaging first. Electronically signed by: Charles Hamilton MD, [facility]([phone]), at 10/06/2024 3:43 PM Hayley Torres MD IMG FLUORO ORDERABLE S * Place PICC Line: Contact Vascular Access Page [phone] Extremity to exclude: No restrictions; Is PICC [...] to the planned procedure. Hand Hygiene: The area captain did perform hand hygiene prior to line insertion. Catheter type: PICC Lot number: [id number] Procedure Technique: Skin was prepped with chlorhexidine. [...] CARE TEST O GILDA Performing Organization Address [facility] Co de Phone Number [facility] [place] [address] * (ABNORMAL) POC, GLUCOSE (10/06/2024 7:34 AM EST) Glucometer, POC 209(H) 65 - 199 mg/dL 10/06/2024 7:34 AM EST [facility] Comment:Supplemental ranges: <140 mg/dL before meals <180 mg/dL all other times of the day. Blood CAPILLARY BLOOD / Unknown 10/06/2024 7:34 AM EST 10/06/2024 7:34 AM EST Hayley Torres MD POINT OF CARE TEST O GILDA Performing Organization Address City/[facility]/ZIP Co de Phone Number [facility] [place] [address] * POC, GLUCOSE (10/06/2024 3:29 AM EST) Glucometer, POC 151 65 - 199 mg/dL 10/06/2024 3:29 AM EST [facility] Comment:Supplemental ranges: <140 mg/dL before meals <180 mg/dL all other times of the day. Blood CAPILLARY BLOOD / Unknown 10/06/2024 3:29 AM EST 10/06/2024 3:29 AM EST Hayley Torres MD POINT OF CARE TEST O RDERABLES Performing Organization Address City/[facility]/ZIP Co de Phone Number [facility] [place] [address] * Vancomycin Level, Random (10/06/2024 12:03 AM EST) Pathologist [facility] Vancomycin, Random 20.5 mg/L 2023 9:00 AM EST [facility] Comment:This level is for de termination of the patient's vancomycin wkcz-lqeep-klf-curve (AUC) value. Contact the inpatient pharmacy for interpretation. Blood VENOUS BLOOD SPECIMEN / Unknown Venipuncture / Unknown 10/06/2024 12:03 AM EST 10/06/2024 12:15 AM EST Hayley Torres MD CHEMISTRY ORDERABLES Performing Organization Address City/[facility]/ZIP Co de Phone Number [facility] [place] [address] * (ABNORMAL) CBC (with Diff) (10/06/2024 12:03 [...] HEMATOLOGY ORDERABLE S [facility] [place] [address] * Basic Metabolic Panel (10/06/2024 12:03 AM [...] 98 - 107 mMol/L 10/06/2024 12:44 AM EST [facility] Carbon Dioxide 22 22 - 31 mMol/L 10/06/2024 12:44 AM EST [facility] Anion Gap 14 5 - 15 mMol/L 10/06/2024 12:44 AM EST [facility] Calcium 8.8 8.5 - 10.5 mg/dL 10/06/2024 12:44 AM EST [facility] Est Glomerular Filtration Rate - Male 106 mL/min/1. 73 m?? 10/06/2024 12:44 AM EST [facility] Comment: [...] MD CHEMISTRY ORDERABLES [facility] [place] [address] * Phosphorus (10/06/2024 12:03 AM EST) Phosphorus 4.3 2.5 - 4.5 mg/dL 10/06/2024 12:44 AM EST [facility] Blood VENOUS BLOOD SPECIMEN / Unknown Venipuncture / Unknown 10/06/2024 12:03 AM EST 10/06/2024 12:15 AM EST Hayley Torres MD CHEMISTRY ORDERABLES [facility] [place] [address] * Magnesium (10/06/2024 12:03 AM EST) Magnesium 0.83 0.69 - 1.07 mMol/L 10/06/2024 12:44 AM EST [facility] Blood VENOUS BLOOD SPECIMEN / Unknown Venipuncture / Unknown 10/06/2024 12:03 AM EST 10/06/2024 12:15 AM EST Hayley Torres MD CHEMISTRY ORDERABLES Performing Organization Address City/[facility]/ZIP Co de Phone Number [facility] [place] [address] * POC, GLUCOSE (10/06/2024 12:02 AM EST) Glucometer, POC 98 65 - 199 mg/dL 10/06/2024 12:02 AM EST [facility] Comment:Supplemental ranges: <140 mg/dL before meals <180 mg/dL all other times of the day. Blood CAPILLARY BLOOD / Unknown 10/06/2024 12:02 AM EST 10/06/2024 12:02 AM EST Hayley Torres MD POINT OF CARE TEST O RDERAHERNANDEZ Performing Organization Address City/[facility]/ZIP Co de Phone Number [facility] [place] [address] * POC, GLUCOSE (10/05/2024 7:22 PM EST) Glucometer, POC 186 65 - 199 mg/dL 10/05/2024 7:23 PM EST [facility] Comment:Supplemental ranges: <140 mg/dL before meals <180 mg/dL all other times of the day. Blood CAPILLARY BLOOD / Unknown 10/05/2024 7:22 PM EST 10/05/2024 7:23 PM EST Hayley Torres MD POINT OF CARE TEST O RDERABLES Performing Organization Address [facility] Co de Phone Number [facility] [place] [address] * POC, GLUCOSE (10/05/2024 5:35 PM EST) Glucometer, POC 177 65 - 199 mg/dL 10/05/2024 5:35 PM EST [facility] Comment:Supplemental ranges: <140 mg/dL before meals <180 mg/dL all other times of the day. Blood CAPILLARY BLOOD / Unknown 10/05/2024 5:35 PM EST 10/05/2024 5:35 PM EST Hayley Torres MD POINT OF CARE TEST O RDERAHERNANDEZ Performing Organization Address [facility] [[email or web address]] de Phone Number [facility] [place] [address] * POC, GLUCOSE (10/05/2024 3:57 PM EST) Glucometer, POC 141 65 - 199 mg/dL 10/05/2024 3:57 PM EST [facility] Comment:Supplemental ranges: <140 mg/dL before meals <180 mg/dL all other times of the day. Blood CAPILLARY BLOOD / Unknown 10/05/2024 3:57 PM EST 10/05/2024 3:57 PM EST Hayley Torres MD POINT OF CARE TEST O RDERAHERANNDEZ Performing Organization Address [facility] Co de Phone Number [facility] [place] [address] * POC, GLUCOSE (10/05/2024 11:50 AM EST) Glucometer, POC 134 65 - 199 mg/dL 10/05/2024 11:50 AM EST [facility] Comment:Supplemental ranges: <140 mg/dL before meals <180 mg/dL all other times of the day. Blood CAPILLARY BLOOD / Unknown 10/05/2024 11:50 AM EST 10/05/2024 11:50 AM EST Hayley Torres MD POINT OF CARE TEST O RDERAHERNANDEZ Performing Organization Address City/[facility]/ZIP Co de Phone Number [facility] [place] [address] * POC, GLUCOSE (10/05/2024 7:51 AM EST) Glucometer, POC 114 65 - 199 mg/dL 10/05/2024 7:51 AM EST [facility] Comment:Supplemental ranges: <140 mg/dL before meals <180 mg/dL all other times of the day. Blood CAPILLARY BLOOD / Unknown 10/05/2024 7:51 AM EST 10/05/2024 7:51 AM EST Hayley Torres MD POINT OF CARE TEST O DIMITRIERAHERNANDEZ Performing Organization Address [facility] [[email or web address]] de Phone Number [facility] [place] [address] * POC, GLUCOSE (10/05/2024 4:18 AM EST) Glucometer, POC 147 65 - 199 mg/dL 10/05/2024 4:18 AM EST [facility] Comment:Supplemental ranges: <140 mg/dL before meals <180 mg/dL all other times of the day. Blood CAPILLARY BLOOD / Unknown 10/05/2024 4:18 AM EST 10/05/2024 4:18 AM EST Hayley Torres MD POINT OF CARE TEST O GILDA Performing Organization Address City/[facility]/ZIP Co de Phone Number [facility] [place] [address] * (ABNORMAL) CBC (with Diff) (10/04/2024 11:50 PM EST) White Blood Cell 12.73(H) 4.00 - 9.50 x10(3)/mc L 10/05/2024 12:10 AM EST [facility] Red Blood Cell 3.45(L) [...] Lymph % 21.3 % 10/05/2024 12:10 AM EST [facility] Lymph Absolute 2.71 0.90 [...] HEMATOLOGY ORDERABLE S [facility] [place] [address] * (ABNORMAL) Basic Metabolic Panel (10/04/2024 11:50 PM EST) Glucose 104 65 - 199 mg/dL 10/05/2024 12:35 AM EST [facility] m?? 10/05/2024 12:35 AM [facility] [...] MD CHEMISTRY ORDERABLES [facility] [place] [address] * Phosphorus (10/04/2024 11:50 PM EST) Phosphorus 4.2 2.5 - 4.5 mg/dL 10/05/2024 12:35 AM EST [facility] Blood VENOUS BLOOD SPECIMEN / Unknown Venipuncture / Unknown 10/04/2024 11:50 PM EST 10/05/2024 12:03 AM EST Hayley Torres MD CHEMISTRY ORDERABLES Performing Organization Address City/[facility]/ZIP Co de Phone Number [facility] [place] [address] * Magnesium (10/04/2024 11:50 PM EST) Magnesium 0.89 0.69 - 1.07 mMol/L 10/05/2024 12:35 AM EST [facility] Blood VENOUS BLOOD SPECIMEN / Unknown Venipuncture / Unknown 10/04/2024 11:50 PM EST 10/05/2024 12:03 AM EST Hayley Torres MD CHEMISTRY ORDERABLES Performing Organization Address [facility]/ZIP Co de Phone Number [facility] [place] [address] * POC, GLUCOSE (10/04/2024 11:36 PM EST) [facility] Glucometer, POC 121 65 - 199 mg/dL 10/04/2024 11:36 PM EST [facility] Comment:Supplemental ranges: <140 mg/dL before meals <180 mg/dL all other times of the day. Blood CAPILLARY BLOOD / Unknown 10/04/2024 11:36 PM EST 10/04/2024 11:36 PM EST Hayley Torres MD POINT OF CARE TEST O RDERABLES Performing Organization Address City/[facility]/ZIP Co de Phone Number [facility] [place] [address] * POC, GLUCOSE (10/04/2024 7:32 PM EST) Glucometer, POC 163 65 - 199 mg/dL 10/04/2024 7:32 PM EST [facility] Comment:Supplemental ranges: <140 mg/dL before meals <180 mg/dL all other times of the day. Blood CAPILLARY BLOOD / Unknown 10/04/2024 7:32 PM EST 10/04/2024 7:32 PM EST Hayley Torres MD POINT OF CARE TEST O RDERABLES [facility] [place] [id number] * EKG 12 Lead (10/04/2024 7:14 PM EST) Ventricular rate 81 BPM MUSE SYSTEM Atrial Rate 81 BPM MUSE SYSTEM P-R Interval 174 ms MUSE SYSTEM QRS Duration 112 ms MUSE SYSTEM Q-T Interval 422 ms MUSE SYSTEM QTC Calculated (Bezet) 490 ms MUSE SYSTEM Calculated P [place] 34 degrees MUSE SYSTEM Calculated R [place] 11 degrees MUSE SYSTEM Calculated T [place] 59 degrees MUSE SYSTEM INTERPRETATION Normal sinus rhythm Cannot rule out Inferior infarct , age undetermined Nonspecific T wave abnormality Borderline ECG When compared with ECG of 29-MAY-2024 14:51, Nonspecific T wave abnormality now evident in Lateral leads Confirmed by MD Robert, Deandre Florencio ([id number]) on 10/05/2024 3:35:42 PM MUSE SYSTEM 10/04/2024 [...] CARE TEST O GILDA Performing Organization Address [facility] Co de Phone Number [facility] [place] [address] * POC, GLUCOSE (10/04/2024 4:49 PM EST) Glucometer, POC 70 65 - 199 mg/dL 10/04/2024 4:50 PM EST [facility] Comment:Supplemental ranges: <140 mg/dL before meals <180 mg/dL all other times of the day. Blood CAPILLARY BLOOD / Unknown 10/04/2024 4:49 PM EST 10/04/2024 4:50 PM EST Hayley Torres MD POINT OF CARE TEST O GILDA Performing Organization Address [facility] [[email or web address]] de Phone Number [facility] [place] [address] * POC, GLUCOSE (10/04/2024 11:49 AM EST) Glucometer, POC 93 65 - 199 mg/dL 10/04/2024 11:49 AM EST [facility] Comment:Supplemental ranges: <140 mg/dL before meals <180 mg/dL all other times of the day. Blood CAPILLARY BLOOD / Unknown 10/04/2024 11:49 AM EST 10/04/2024 11:49 AM EST Hayley Torres MD POINT OF CARE TEST O GILDA Performing Organization Address [facility] Co de Phone Number [facility] [place] [address] * Vancomycin, trough (10/04/2024 7:53 AM EST) Vancomycin, Trough 19.8 10.0 - 20.0 mg/L 10/04/2024 9:16 AM EST [facility] Comment: Varies according to infection source. Blood VENOUS BLOOD SPECIMEN / Unknown Venipuncture / Unknown 10/04/2024 7:53 AM EST 10/04/2024 8:11 AM EST Hayley Torres MD CHEMISTRY ORDERABLES Performing Organization Address [facility] Co de Phone Number [facility] [place] [address] * POC, GLUCOSE (10/04/2024 7:51 AM EST) Glucometer, POC 105 65 - 199 mg/dL 10/04/2024 7:52 AM EST [facility] Comment:Supplemental ranges: <140 mg/dL before meals <180 mg/dL all other times of the day. Blood CAPILLARY BLOOD / Unknown 10/04/2024 7:51 AM EST 10/04/2024 7:52 AM EST Hayley Torres MD POINT OF CARE TEST O GILDA Performing Organization Address [facility] Co de Phone Number [facility] [place] [address] * POC, GLUCOSE (10/04/2024 3:53 AM EST) Glucometer, POC 90 65 - 199 mg/dL 10/04/2024 3:53 AM EST [facility] Comment:Supplemental ranges: <140 mg/dL before meals <180 mg/dL all other times of the day. Blood CAPILLARY BLOOD / Unknown 10/04/2024 3:53 AM EST 10/04/2024 3:53 AM EST Hayley Torres MD POINT OF CARE TEST O GILDA Performing Organization Address [facility] Co de Phone Number [facility] [place] [address] * (ABNORMAL) CBC (with Diff) (10/04/2024 12:08 [...] HEMATOLOGY ORDERABLE S [facility] [place] [address] * (ABNORMAL) Basic Metabolic Panel (10/04/2024 12:08 [...] m?? 10/04/2024 12:53 AM [facility] MD CHEMISTRY ORDERABLES [facility] [place] [address] * Phosphorus (10/04/2024 12:08 AM EST) Phosphorus 3.7 2.5 - 4.5 mg/dL 10/04/2024 12:53 AM EST [facility] Blood VENOUS BLOOD SPECIMEN / Unknown Venipuncture / Unknown 10/04/2024 12:08 AM EST 10/04/2024 12:15 AM EST Hayley Torres MD CHEMISTRY ORDERABLES [facility] [place] [address] * Magnesium (10/04/2024 12:08 AM EST) Magnesium 0.89 0.69 - 1.07 mMol/L 10/04/2024 12:53 AM EST [facility] Blood VENOUS BLOOD SPECIMEN / Unknown Venipuncture / Unknown 10/04/2024 12:08 AM EST 10/04/2024 12:15 AM EST Hayley Torres MD CHEMISTRY ORDERABLES Performing Organization Address City/[facility]/ZIP Co de Phone Number [facility] [place] [address] * POC, GLUCOSE (10/04/2024 12:01 AM EST) Glucometer, POC 132 65 - 199 mg/dL 10/04/2024 12:02 AM EST [facility] Comment:Supplemental ranges: <140 mg/dL before meals <180 mg/dL all other times of the day. Blood CAPILLARY BLOOD / Unknown 10/04/2024 12:01 AM EST 10/04/2024 12:02 AM EST Hayley Torres MD POINT OF CARE TEST O RDERABLES [facility] [place] [address] * POC, GLUCOSE (10/03/2024 7:56 PM EST) Glucometer, POC 123 65 - 199 mg/dL 10/03/2024 7:56 PM EST [facility] Comment:Supplemental ranges: <140 mg/dL before meals <180 mg/dL all other times of the day. Blood CAPILLARY BLOOD / Unknown 10/03/2024 7:56 PM EST 10/03/2024 7:57 PM EST Hayley Torres MD POINT OF CARE TEST O GILDA Performing Organization Address City/[facility]/ZIP Co de Phone Number [facility] [place] [address] * POC, GLUCOSE (10/03/2024 5:29 PM EST) Glucometer, POC 182 65 - 199 mg/dL 10/03/2024 5:30 PM EST [facility] Comment:Supplemental ranges: <140 mg/dL before meals <180 mg/dL all other times of the day. Blood CAPILLARY BLOOD / Unknown 10/03/2024 5:29 PM EST 10/03/2024 5:30 PM EST Hayley Torres MD POINT OF CARE TEST O GILDA [facility] [place] [address] * POC, GLUCOSE (10/03/2024 12:54 PM EST) Glucometer, POC 128 65 - 199 mg/dL 10/03/2024 12:54 PM EST [facility] Comment:Supplemental ranges: <140 mg/dL before meals <180 mg/dL all other times of the day. Blood CAPILLARY BLOOD / Unknown 10/03/2024 12:54 PM EST 10/03/2024 12:54 PM EST Hayley Torres MD POINT OF CARE TEST O GILDA Performing Organization Address [facility] Co de Phone Number [facility] [place] [address] * POC, GLUCOSE (10/03/2024 7:59 AM EST) Glucometer, POC 115 65 - 199 mg/dL 10/03/2024 7:59 AM EST [facility] Comment:Supplemental ranges: <140 mg/dL before meals <180 mg/dL all other times of the day. Blood CAPILLARY BLOOD / Unknown 10/03/2024 7:59 AM EST 10/03/2024 7:59 AM EST Hayley Torres MD POINT OF CARE TEST O GILDA Performing Organization Address [facility] [[email or web address]] de Phone Number [facility] [place] [address] * POC, GLUCOSE (10/03/2024 5:32 AM EST) Glucometer, POC 119 65 - 199 mg/dL 10/03/2024 5:32 AM EST [facility] Comment:Supplemental ranges: <140 mg/dL before meals <180 mg/dL all other times of the day. Blood CAPILLARY BLOOD / Unknown 10/03/2024 5:32 AM EST 10/03/2024 5:32 AM EST Hayley Torres MD POINT OF CARE TEST O GILDA Performing Organization Address [facility] Co de Phone Number [facility] [place] [address] * POC, GLUCOSE (10/03/2024 4:16 AM EST) Glucometer, POC 152 65 - 199 mg/dL 10/03/2024 4:17 AM EST [facility] Comment:Supplemental ranges: <140 mg/dL before meals <180 mg/dL all other times of the day. Blood CAPILLARY BLOOD / Unknown 10/03/2024 4:16 AM EST 10/03/2024 4:17 AM EST Hayley Torres MD POINT OF CARE TEST O GILDA [facility] [place] [address] * (ABNORMAL) POC, GLUCOSE (10/03/2024 2:02 AM EST) Glucometer, POC 225(H) 65 - 199 mg/dL 10/03/2024 2:02 AM EST [facility] Comment:Supplemental ranges: <140 mg/dL before meals <180 mg/dL all other times of the day. Blood CAPILLARY BLOOD / Unknown 10/03/2024 2:02 AM EST 10/03/2024 2:02 AM EST Hayley Torres MD POINT OF CARE TEST O GILDA Performing Organization Address City/[facility]/ZIP Co de Phone Number [facility] [place] [address] * (ABNORMAL) CBC (with Diff) (10/03/2024 12:27 AM EST) Pathologist [facility] White Blood Cell 15.33(H) 4.00 - 9.50 [...] [facility] Monocyte % 2.9 % 10/03/2024 12:51 [...] [facility] Basophil % 0.4 % 10/03/2024 12:51 AM [facility] Baso Absolute 0.06 0.00 - 0.10 x10(3)/mc L 10/03/2024 12:51 AM [facility] Immature Gran % 5.7 % 12:51 AM [facility] Immature Gran Absolute 0.87(H) 0.00 - 0.04 x10(3)/mc L 10/03/2024 12:51 AM [facility] Blood VENOUS BLOOD SPECIMEN / Unknown Venipuncture / Unknown 10/03/2024 12:27 AM EST 10/03/2024 12:47 AM EST Hayley Torres MD HEMATOLOGY ORDERABLE S [facility] [place] [address] * (ABNORMAL) Basic Metabolic Panel (10/03/2024 12:27 [...] - 31 mMol/L 10/03/2024 1:14 AM EST [facility] Anion Gap 13 5 - 15 mMol/L 10/03/2024 1:14 AM EST [facility] Calcium 8.4(L) 8.5 - 10.5 mg/dL 10/03/2024 1:14 AM EST [facility] Est Glomerular Filtration Rate - Male 124 mL/min/1. 73 m?? 10/03/2024 1:14 AM EST [facility] Comment: [...] MD CHEMISTRY ORDERABLES [facility] [place] [address] * Phosphorus (10/03/2024 12:27 AM EST) Phosphorus 3.5 2.5 - 4.5 mg/dL 10/03/2024 1:14 AM EST [facility] Blood VENOUS BLOOD SPECIMEN / Unknown Venipuncture / Unknown 10/03/2024 12:27 AM EST 10/03/2024 12:47 AM EST Hayley Torres MD CHEMISTRY ORDERABLES [facility] [place] [address] * Magnesium (10/03/2024 12:27 AM EST) Magnesium 0.83 0.69 - 1.07 mMol/L 10/03/2024 1:14 AM EST [facility] Blood VENOUS BLOOD SPECIMEN / Unknown Venipuncture / Unknown 10/03/2024 12:27 AM EST 10/03/2024 12:47 AM EST Hayley Torres MD CHEMISTRY ORDERABLES [facility] [place] [address] * (ABNORMAL) POC, GLUCOSE (10/03/2024 12:13 AM EST) Glucometer, POC 255(H) 65 - 199 mg/dL 10/03/2024 12:14 AM EST [facility] Comment:Supplemental ranges: <140 mg/dL before meals <180 mg/dL all other times of the day. Blood CAPILLARY BLOOD / Unknown 10/03/2024 12:13 AM EST 10/03/2024 12:14 AM EST Hayley Torres MD POINT OF CARE TEST O RDERABLES Performing Organization Address City/[facility]/ZIP Co de Phone Number [facility] [place] [address] * POC, GLUCOSE (10/02/2024 8:17 PM EST) Glucometer, POC 177 65 - 199 mg/dL 10/02/2024 8:17 PM EST [facility] Comment:Supplemental ranges: <140 mg/dL before meals <180 mg/dL all other times of the day. Blood CAPILLARY BLOOD / Unknown 10/02/2024 8:17 PM EST 10/02/2024 8:17 PM EST Hayley Torres MD POINT OF CARE TEST O RDERABLES Performing Organization Address City/[facility]/ZIP Co de Phone Number [facility] [place] [address] * POC, GLUCOSE (10/02/2024 6:22 PM EST) Glucometer, POC 172 65 - 199 mg/dL 10/02/2024 6:22 PM EST [facility] LABORATORY Comment:Supplemental ranges: <140 mg/dL before meals <180 mg/dL all other times of the day. Blood CAPILLARY BLOOD / Unknown 10/02/2024 6:22 PM EST 10/02/2024 6:22 PM EST Hayley Torres MD POINT OF CARE TEST O GILDA [facility] [place] [address] * POC, GLUCOSE (10/02/2024 5:01 PM EST) Glucometer, POC 104 65 - 199 mg/dL 10/02/2024 5:01 PM EST [facility] Comment:Supplemental ranges: <140 mg/dL before meals <180 mg/dL all other times of the day. Blood CAPILLARY BLOOD / Unknown 10/02/2024 5:01 PM EST 10/02/2024 5:01 PM EST Hayley Torres MD POINT OF CARE TEST O GILDA Performing Organization Address City/[facility]/ZIP Co de Phone Number [facility] [place] [address] * POC, GLUCOSE (10/02/2024 3:05 PM EST) Glucometer, POC 113 65 - 199 mg/dL 10/02/2024 3:06 PM EST [facility] Comment:Supplemental ranges: <140 mg/dL before meals <180 mg/dL all other times of the day. Blood CAPILLARY BLOOD / Unknown 10/02/2024 3:05 PM EST 10/02/2024 3:06 PM EST Hayley Torres MD POINT OF CARE TEST O RDERABLES Performing Organization Address [facility] Co de Phone Number [facility] [place] [address] * POC, GLUCOSE (10/02/2024 11:12 AM EST) Glucometer, POC 146 65 - 199 mg/dL 10/02/2024 11:12 AM EST [facility] Comment:Supplemental ranges: <140 mg/dL before meals <180 mg/dL all other times of the day. Blood CAPILLARY BLOOD / Unknown 10/02/2024 11:12 AM EST 10/02/2024 11:12 AM EST Hayley Torres MD POINT OF CARE TEST O RDERAHERNANDEZ Performing Organization Address [facility] [[email or web address]] de Phone Number [facility] [place] [address] * POC, GLUCOSE (10/02/2024 8:12 AM EST) Glucometer, POC 131 65 - 199 mg/dL 10/02/2024 8:12 AM EST [facility] Comment:Supplemental ranges: <140 mg/dL before meals <180 mg/dL all other times of the day. Blood CAPILLARY BLOOD / Unknown 10/02/2024 8:12 AM EST 10/02/2024 8:12 AM EST Hayley Torres MD POINT OF CARE TEST O RDERAHERNANDEZ Performing Organization Address City/[facility] Co de Phone Number [facility] [place] [address] * POC, GLUCOSE (10/02/2024 4:19 AM EST) Glucometer, POC 131 65 - 199 mg/dL 10/02/2024 4:19 AM EST [facility] Comment:Supplemental ranges: <140 mg/dL before meals <180 mg/dL all other times of the day. Blood CAPILLARY BLOOD / Unknown 10/02/2024 4:19 AM EST 10/02/2024 4:19 AM EST Hayley Torres MD POINT OF CARE TEST O RDERABLES [facility] [place] [address] * Phosphorus (10/02/2024 12:41 AM EST) Phosphorus 4.1 2.5 - 4.5 mg/dL 10/02/2024 1:21 AM EST [facility] Blood VENOUS BLOOD SPECIMEN / Unknown Venipuncture / Unknown 10/02/2024 12:41 AM EST 10/02/2024 12:45 AM EST Hayley Torres MD CHEMISTRY ORDERABLES Performing Organization Address City/[facility]/ZIP Co de Phone Number [facility] [place] [address] * Magnesium (10/02/2024 12:41 AM EST) Magnesium 0.85 0.69 - 1.07 mMol/L 10/02/2024 1:21 AM EST [facility] Blood VENOUS BLOOD SPECIMEN / Unknown Venipuncture / Unknown 10/02/2024 12:41 AM EST 10/02/2024 12:45 AM EST Hayley Torres MD CHEMISTRY ORDERABLES Performing Organization Address City/[facility]/ZIP Co de Phone Number [facility] [place] [address] * (ABNORMAL) Basic Metabolic Panel (10/02/2024 12:41 AM EST) Glucose 113 65 - 199 mg/dL 10/02/2024 1:21 AM EST [facility] Comment:Glucose Concentratio n >=200 mg/dL plus symptoms is consistent with Diabetes Mellitus. Blood Urea Nitrogen 11 10 - 20 mg/dL 10/02/2024 1:21 AM EST [facility] Creatinine 0.49(L) 0.80 - 1.50 mg/dL 10/02/2024 1:21 AM EST [facility] Sodium 138 135 - [...] MD CHEMISTRY ORDERABLES [facility] [place] [address] * (ABNORMAL) CBC (with Diff) (10/02/2024 12:41 [...] [facility] Immature Gran % 9.7 % 1:04 AM [facility] Immature Gran Absolute 1.06(H) 0.00 - 0.04 x10(3)/mc L 10/02/2024 1:04 AM [facility] Blood VENOUS BLOOD SPECIMEN / Unknown Venipuncture / Unknown 10/02/2024 12:41 AM EST 10/02/2024 12:45 AM EST Hayley Torres MD HEMATOLOGY ORDERABLE S [facility] [place] [address] * POC, GLUCOSE (10/02/2024 12:40 AM EST) [facility] Signature Glucometer, POC 116 65 - 199 mg/dL 10/02/2024 12:41 AM [facility] Comment:Supplemental ranges: <140 mg/dL before meals <180 mg/dL all other times of the day. Blood CAPILLARY BLOOD / Unknown 10/02/2024 12:40 AM EST 10/02/2024 12:41 AM EST Hayley Torres MD POINT OF CARE TEST O GILDA [facility] [place] [address] * POC, GLUCOSE (10/01/2024 8:11 PM EST) Glucometer, POC 123 65 - 199 mg/dL 10/01/2024 8:11 PM EST [facility] Comment:Supplemental ranges: <140 mg/dL before meals <180 mg/dL all other times of the day. Blood CAPILLARY BLOOD / Unknown 10/01/2024 8:11 PM EST 10/01/2024 8:11 PM EST Hayley Torres MD POINT OF CARE TEST O GILDA Performing Organization Address City/[facility]/ZIP Co de Phone Number [facility] [place] [address] * POC, GLUCOSE (10/01/2024 6:00 PM EST) Glucometer, POC 112 65 - 199 mg/dL 10/01/2024 6:00 PM EST [facility] Comment:Supplemental ranges: <140 mg/dL before meals <180 mg/dL all other times of the day. Blood CAPILLARY BLOOD / Unknown 10/01/2024 6:00 PM EST 10/01/2024 6:00 PM EST Hayley Torres MD POINT OF CARE TEST O GILDA [facility] [place] [address] * POC, GLUCOSE (10/01/2024 3:53 PM EST) Glucometer, POC 97 65 - 199 mg/dL 10/01/2024 3:53 PM EST [facility] Comment:Supplemental ranges: <140 mg/dL before meals <180 mg/dL all other times of the day. Blood CAPILLARY BLOOD / Unknown 10/01/2024 3:53 PM EST 10/01/2024 3:53 PM EST Hayley Torres MD POINT OF CARE TEST O GILDA [facility] [place] [address] * POC, GLUCOSE (10/01/2024 2:25 PM EST) Glucometer, POC 117 65 - 199 mg/dL 10/01/2024 2:25 PM EST [facility] Comment:Supplemental ranges: <140 mg/dL before meals <180 mg/dL all other times of the day. Blood CAPILLARY BLOOD / Unknown 10/01/2024 2:25 PM EST 10/01/2024 2:25 PM EST Hayley Torres MD POINT OF CARE TEST O GILDA Performing Organization Address [facility] Co de Phone Number [facility] [place] [address] * POC, GLUCOSE (10/01/2024 11:43 AM EST) Glucometer, POC 174 65 - 199 mg/dL 10/01/2024 11:43 AM EST [facility] Comment:Supplemental ranges: <140 mg/dL before meals <180 mg/dL all other times of the day. Blood CAPILLARY BLOOD / Unknown 10/01/2024 11:43 AM EST 10/01/2024 11:43 AM EST Hayley Torres MD POINT OF CARE TEST O GILDA [facility] [place] [address] * POC, GLUCOSE (10/01/2024 9:43 AM EST) Glucometer, POC 191 65 - 199 mg/dL 10/01/2024 9:43 AM EST [facility] Comment:Supplemental ranges: <140 mg/dL before meals <180 mg/dL all other times of the day. Blood CAPILLARY BLOOD / Unknown 10/01/2024 9:43 AM EST 10/01/2024 9:43 AM EST Hayley Torres MD POINT OF CARE TEST O GILDA Performing Organization Address City/[facility]/ZIP Co de Phone Number [facility] [place] [address] * POC, GLUCOSE (10/01/2024 7:48 AM EST) Glucometer, POC 151 65 - 199 mg/dL 10/01/2024 7:48 AM EST [facility] Comment:Supplemental ranges: <140 mg/dL before meals <180 mg/dL all other times of the day. Blood CAPILLARY BLOOD / Unknown 10/01/2024 7:48 AM EST 10/01/2024 7:48 AM EST Hayley Torres MD POINT OF CARE TEST O GILDA [facility] [place] [address] * POC, GLUCOSE (10/01/2024 4:25 AM EST) Glucometer, POC 133 65 - 199 mg/dL 10/01/2024 4:26 AM EST [facility] Comment:Supplemental ranges: <140 mg/dL before meals <180 mg/dL all other times of the day. Blood CAPILLARY BLOOD / Unknown 10/01/2024 4:25 AM EST 10/01/2024 4:26 AM EST Hayley Torres MD POINT OF CARE TEST O RDERABLES [facility] [place] [address] * Phosphorus (10/01/2024 2:02 AM EST) [facility] Phosphorus 3.9 2.5 - 4.5 mg/dL 10/01/2024 7:16 AM EST [facility] Blood VENOUS BLOOD SPECIMEN / Unknown Venipuncture / Unknown 10/01/2024 2:02 AM EST 10/01/2024 2:10 AM EST Hayley Torres MD CHEMISTRY ORDERABLES Performing Organization Address City/[facility]/ZIP Co de Phone Number [facility] [place] [address] * (ABNORMAL) Scan, Peripheral Blood (10/01/2024 2:02 AM EST) [facility] RBC Morphology Abnormal 10/01/2024 2:55 AM EST [...] MD HEMATOLOGY ORDERABLE S Performing Organization Address City/[facility]/ZIP Co de Phone Number [facility] [place] [address] * Magnesium (10/01/2024 2:02 AM EST) [facility] Magnesium 0.79 0.69 - 1.07 mMol/L 10/01/2024 2:41 AM EST [facility] Blood VENOUS BLOOD SPECIMEN / Unknown Venipuncture / Unknown 10/01/2024 2:02 AM EST 10/01/2024 2:10 AM EST Hayley Torres MD CHEMISTRY ORDERABLES [facility] [place] [address] * (ABNORMAL) Basic Metabolic Panel (10/01/2024 2:02 AM EST) Glucose 122 65 - 199 mg/dL 10/01/2024 2:41 AM EST [facility] Comment:Glucose [...] - 5.0 mMol/L 10/01/2024 2:41 AM EST [facility] Chloride 105 98 - [...] MD CHEMISTRY ORDERABLES [facility] [place] [address] * (ABNORMAL) CBC (with Diff) (10/01/2024 2:02 AM EST) White Blood Cell 10.15(H) 4.00 - 9.50 x10(3)/mc L 10/01/2024 2:55 AM [facility] Red Blood Cell 3.14(L) 4.58 - 5.54 x10(6)/mc L 10/01/2024 2:55 AM EST [facility] Hemoglobin 9.1(L) 13.7 - [...] - 0.04 x10(3)/mc L 10/01/2024 2:55 AM [facility] Comment:This is an appended report. These results have been appended to a previously preliminary verified report. Blood VENOUS BLOOD SPECIMEN / Unknown Venipuncture / Unknown 10/01/2024 2:02 AM EST 10/01/2024 2:10 AM EST Hayley Torres MD HEMATOLOGY ORDERABLE S [facility] [place] [address] * POC, GLUCOSE (10/01/2024 12:32 AM EST) [facility] Signature Glucometer, POC 179 65 - 199 mg/dL 10/01/2024 12:32 AM [facility] Comment:Supplemental ranges: <140 mg/dL before meals <180 mg/dL all other times of the day. Blood CAPILLARY BLOOD / Unknown 10/01/2024 12:32 AM EST 10/01/2024 12:32 AM EST Hayley Torres MD POINT OF CARE TEST O GILDA Performing Organization Address [facility] Co de Phone Number [facility] [place] [address] * POC, GLUCOSE (09/30/2024 7:37 PM EST) Glucometer, POC 140 65 - 199 mg/dL 09/30/2024 7:38 PM EST [facility] Comment:Supplemental ranges: <140 mg/dL before meals <180 mg/dL all other times of the day. Blood CAPILLARY BLOOD / Unknown 09/30/2024 7:37 PM EST 09/30/2024 7:38 PM EST Hayley Torres MD POINT OF CARE TEST O GILDA Performing Organization Address [facility] Co de Phone Number [facility] [place] [address] * POC, GLUCOSE (09/30/2024 4:29 PM EST) Glucometer, POC 126 65 - 199 mg/dL 09/30/2024 4:30 PM EST [facility] Comment:Supplemental ranges: <140 mg/dL before meals <180 mg/dL all other times of the day. Blood CAPILLARY BLOOD / Unknown 09/30/2024 4:29 PM EST 09/30/2024 4:30 PM EST Hayley Torres MD POINT OF CARE TEST O GILDA Performing Organization Address City/[facility] Co de Phone Number [facility] [place] [address] * POC, GLUCOSE (09/30/2024 12:16 PM EST) Glucometer, POC 107 65 - 199 mg/dL 09/30/2024 12:16 PM EST [facility] Comment:Supplemental ranges: <140 mg/dL before meals <180 mg/dL all other times of the day. Blood CAPILLARY BLOOD / Unknown 09/30/2024 12:16 PM EST 09/30/2024 12:16 PM EST Hayley Torres MD POINT OF CARE TEST O RDERABLES Performing Organization Address City/[facility] Co de Phone Number [facility] [place] [address] * POC, GLUCOSE (09/30/2024 7:58 AM EST) Glucometer, POC 92 65 - 199 mg/dL 09/30/2024 7:58 AM EST [facility] Comment:Supplemental ranges: <140 mg/dL before meals <180 mg/dL all other times of the day. Blood CAPILLARY BLOOD / Unknown 09/30/2024 7:58 AM EST 09/30/2024 7:58 AM EST Hayley Torres MD POINT OF CARE TEST O GILDA Performing Organization Address City/[facility] Co de Phone Number [facility] [place] [address] * Potassium (09/30/2024 6:27 AM EST) Potassium 3.9 3.5 - 5.0 mMol/L 09/30/2024 7:10 AM EST [facility] Blood VENOUS BLOOD SPECIMEN / Unknown Venipuncture / Unknown 09/30/2024 6:27 AM EST 09/30/2024 6:35 AM EST Hayley Torres MD CHEMISTRY ORDERABLES Performing Organization Address City/[facility] Co de Phone Number [facility] [place] [address] * Vancomycin, trough (09/30/2024 6:27 AM EST) Vancomycin, Trough 14.1 10.0 - 20.0 mg/L 09/30/2024 7:10 AM EST [facility] Comment: Varies according to infection source. Blood VENOUS BLOOD SPECIMEN / Unknown Venipuncture / Unknown 09/30/2024 6:27 AM EST 09/30/2024 6:35 AM EST Hayley Torres MD CHEMISTRY ORDERABLES Performing Organization Address City/[facility]/ZIP Co de Phone Number [facility] [place] [address] * POC, GLUCOSE (09/30/2024 3:51 AM EST) Glucometer, POC 134 65 - 199 mg/dL 09/30/2024 3:51 AM EST [facility] Comment:Supplemental ranges: <140 mg/dL before meals <180 mg/dL all other times of the day. Blood CAPILLARY BLOOD / Unknown 09/30/2024 3:51 AM EST 09/30/2024 3:51 AM EST Hayley Torres MD POINT OF CARE TEST O RDERABLES Performing Organization Address City/[facility] Co de Phone Number [facility] [place] [address] * Magnesium (09/29/2024 11:52 PM EST) Magnesium 0.85 0.69 - 1.07 mMol/L 09/30/2024 12:25 AM EST [facility] Blood VENOUS BLOOD SPECIMEN / Unknown Venipuncture / Unknown 09/29/2024 11:52 PM EST 09/29/2024 11:58 PM EST Hayley Torres MD CHEMISTRY ORDERABLES Performing Organization Address City/[facility] Co de Phone Number [facility] [place] [address] * (ABNORMAL) Basic Metabolic Panel (09/29/2024 11:52 [...] MD CHEMISTRY ORDERABLES [facility] [place] [address] * (ABNORMAL) CBC (with Diff) (09/29/2024 11:52 [...] HEMATOLOGY ORDERABLE S [facility] [place] [address] * POC, GLUCOSE (09/29/2024 11:51 PM EST) Glucometer, POC 134 65 - 199 mg/dL 09/29/2024 11:51 PM EST [facility] Comment:Supplemental ranges: <140 mg/dL before meals <180 mg/dL all other times of the day. Blood CAPILLARY BLOOD / Unknown 09/29/2024 11:51 PM EST 09/29/2024 11:51 PM EST Hayley Torres MD POINT OF CARE TEST O RDERABLES Performing Organization Address City/[facility]/ZIP Co de Phone Number [facility] [place] [address] * Blood culture (09/29/2024 9:24 PM EST) Blood Culture No growth at 120 hours 10/04/2024 11:01 PM EST [facility] Blood VENOUS BLOOD SPECIMEN / Unknown Venipuncture / Unknown 09/29/2024 9:24 PM EST 09/29/2024 9:34 PM EST Hayley Torres MD MICROBIOLOGY - BLOOD ORDERABLES Performing Organization Address City/[facility]/ZIP Co de Phone Number [facility] [place] [address] * Blood culture (09/29/2024 9:24 PM EST) Blood Culture No growth at 120 hours 10/04/2024 11:01 PM EST [facility] Blood VENOUS BLOOD SPECIMEN / Unknown Venipuncture / Unknown 09/29/2024 9:24 PM EST 09/29/2024 9:34 PM EST Marko Dickson MD MICROBIOLOGY - BLOOD ORDERABLES Performing Organization Address City/[facility]/ZIP Co de Phone Number [facility] [place] [address] * (ABNORMAL) POC, GLUCOSE (09/29/2024 7:35 PM EST) Glucometer, POC 202(H) 65 - 199 mg/dL 09/29/2024 7:36 PM EST [facility] Comment:Supplemental ranges: <140 mg/dL before meals <180 mg/dL all other times of the day. Blood CAPILLARY BLOOD / Unknown 09/29/2024 7:35 PM EST 09/29/2024 7:36 PM EST Hayley Torres MD POINT OF CARE TEST O GILDA Performing Organization Address City/[facility]/ZIP Co de Phone Number [facility] [place] [address] * POC, GLUCOSE (09/29/2024 6:48 PM EST) Glucometer, POC 161 65 - 199 mg/dL 09/29/2024 6:48 PM EST [facility] Comment:Supplemental ranges: <140 mg/dL before meals <180 mg/dL all other times of the day. Blood CAPILLARY BLOOD / Unknown 09/29/2024 6:48 PM EST 09/29/2024 6:49 PM EST Hayley Torres MD POINT OF CARE TEST O GILDA Performing Organization Address City/[facility]/ZIP Co de Phone Number [facility] [place] [address] * POC, GLUCOSE (09/29/2024 4:06 PM EST) Glucometer, POC 122 65 - 199 mg/dL 09/29/2024 4:06 PM EST [facility] Comment:Supplemental ranges: <140 mg/dL before meals <180 mg/dL all other times of the day. Blood CAPILLARY BLOOD / Unknown 09/29/2024 4:06 PM EST 09/29/2024 4:06 PM EST Hayley Torres MD POINT OF CARE TEST O RDERAHERNANDEZ Performing Organization Address [facility] Co de Phone Number [facility] [place] [address] * POC, GLUCOSE (09/29/2024 11:49 AM EST) Glucometer, POC 135 65 - 199 mg/dL 09/29/2024 11:49 AM EST [facility] Comment:Supplemental ranges: <140 mg/dL before meals <180 mg/dL all other times of the day. Blood CAPILLARY BLOOD / Unknown 09/29/2024 11:49 AM EST 09/29/2024 11:50 AM EST Hayley Torres MD POINT OF CARE TEST O GILDA Performing Organization Address [facility] [[email or web address]] de Phone Number [facility] [place] [address] * (ABNORMAL) POC, GLUCOSE (09/29/2024 7:53 AM EST) Glucometer, POC 202(H) 65 - 199 mg/dL 09/29/2024 7:53 AM EST [facility] Comment:Supplemental ranges: <140 mg/dL before meals <180 mg/dL all other times of the day. Blood CAPILLARY BLOOD / Unknown 09/29/2024 7:53 AM EST 09/29/2024 7:53 AM EST Hayley Torres MD POINT OF CARE TEST O GILDA Performing Organization Address [facility] Co de Phone Number [facility] [place] [address] * POC, GLUCOSE (09/29/2024 3:45 AM EST) Glucometer, POC 184 65 - 199 mg/dL 09/29/2024 3:46 AM EST [facility] Comment:Supplemental ranges: <140 mg/dL before meals <180 mg/dL all other times of the day. Blood CAPILLARY BLOOD / Unknown 09/29/2024 3:45 AM EST 09/29/2024 3:46 AM EST Hayley Torres MD POINT OF CARE TEST O RDERABLES Performing Organization Address City/[facility]/ZIP Co de Phone Number [facility] [place] [address] * (ABNORMAL) Hemoglobin A1c (09/28/2024 11:51 PM [...] red blood cell turnover may not be manufacturer representative of glycemic control. Reference Interval: 4.3 - 5.6% 5.7 - 6.4%: Consistent with prediabetes >=6.5%: Consistent with diagnosis of diabetes mellitus Estimated Average Glucose 232 mg/dL 09/29/2024 9:54 AM EST [facility] Blood VENOUS BLOOD SPECIMEN / Unknown Venipuncture / Unknown 09/28/2024 11:51 PM EST 09/28/2024 11:56 PM EST Hayley Torres MD CHEMISTRY ORDERABLES Performing Organization Address City/[facility]/ZIP Co de Phone Number [facility] [place] [address] * Magnesium (09/28/2024 11:51 PM EST) Magnesium 0.72 0.69 - 1.07 mMol/L 09/29/2024 12:27 AM EST [facility] Blood VENOUS BLOOD SPECIMEN / Unknown Venipuncture / Unknown 09/28/2024 11:51 PM EST 09/28/2024 11:57 PM EST Hayley Torres MD CHEMISTRY ORDERABLES [facility] [place] [address] * (ABNORMAL) Basic Metabolic Panel (09/28/2024 11:51 [...] MD CHEMISTRY ORDERABLES [facility] [place] [address] * (ABNORMAL) CBC (with Diff) (09/28/2024 11:51 PM EST) White Blood Cell 12.76(H) 4.00 - 9.50 x10(3)/mc L 09/29/2024 12:00 AM [facility] Red Blood Cell 2.90(L) 4.58 - [...] <0.01 <0.01 x10(3)/mc L 09/29/2024 12:00 AM [facility] Neutrophil % 86.7 % 09/29/2024 12:00 AM [facility] Neutrophil Absolute (ANC) - Automated 11.06(H) 1.70 [...] HEMATOLOGY ORDERABLE S [facility] [place] [address] * (ABNORMAL) POC, GLUCOSE (09/28/2024 11:45 PM EST) Glucometer, POC 238(H) 65 - 199 mg/dL 09/28/2024 11:45 PM EST [facility] Comment:Supplemental ranges: <140 mg/dL before meals <180 mg/dL all other times of the day. Blood CAPILLARY BLOOD / Unknown 09/28/2024 11:45 PM EST 09/28/2024 11:45 PM EST Hayley Torres MD POINT OF CARE TEST O GILDA Performing Organization Address [facility]/ZIP Co de Phone Number [facility] [place] [address] * (ABNORMAL) POC, GLUCOSE (09/28/2024 10:00 PM EST) Glucometer, POC 287(H) 65 - 199 mg/dL 09/28/2024 10:00 PM EST [facility] Comment:Supplemental ranges: <140 mg/dL before meals <180 mg/dL all other times of the day. Blood CAPILLARY BLOOD / Unknown 09/28/2024 10:00 PM EST 09/28/2024 10:00 PM EST Hayley Torres MD POINT OF CARE TEST O GILDA [facility] [place] [address] * (ABNORMAL) POC, GLUCOSE (09/28/2024 7:51 PM EST) Glucometer, POC 243(H) 65 - 199 mg/dL 09/28/2024 7:52 PM EST [facility] Comment:Supplemental ranges: <140 mg/dL before meals <180 mg/dL all other times of the day. Blood CAPILLARY BLOOD / Unknown 09/28/2024 7:51 PM EST 09/28/2024 7:52 PM EST Hayley Torres MD POINT OF CARE TEST Stephanie VO Performing Organization Address [facility]/ZIP Co de Phone Number [facility] [place] [address] * Blood culture (09/28/2024 5:49 PM EST) Blood Culture No growth at 120 hours 10/03/2024 7:01 PM EST [facility] Blood VENOUS BLOOD SPECIMEN / Unknown Venipuncture / Unknown 09/28/2024 5:49 PM EST 09/28/2024 5:53 PM EST Marko Dickson MD MICROBIOLOGY - BLOOD ORDERABLES Performing Organization Address [facility]/ZIP Co de Phone Number [facility] [place] [address] * (ABNORMAL) POC, GLUCOSE (09/28/2024 4:42 PM EST) Glucometer, POC 203(H) 65 - 199 mg/dL 09/28/2024 4:42 PM EST [facility] Comment:Supplemental ranges: <140 mg/dL before meals <180 mg/dL all other times of the day. Blood CAPILLARY BLOOD / Unknown 09/28/2024 4:42 PM EST 09/28/2024 4:42 PM EST Hayley Torres MD POINT OF CARE TEST O RDERABLES [facility] [place] [address] * (ABNORMAL) Blood Gas, Arterial POC (09/28/2024 3:16 PM EST) pH, Arterial 7.42 7.35 - 7.45 09/28/2024 3:17 PM EST [facility] PCO2, Arterial 39 35 - 45 mmHg 09/28/2024 3:17 PM [facility] PO2, Arterial 103 85 - 104 mmHg 09/28/2024 3:17 PM [facility] Bicarbonate, Arterial 24.8 20.0 - 26.0 mmol/L 09/28/2024 3:17 PM [facility] Base Excess, Arterial 0.2 -3.0 - 3.0 mmol/L 09/28/2024 3:17 PM [facility] Hemoglobin, Arterial 10.9(L) 13.7 - 16.5 g/dL 09/28/2024 3:17 PM [facility] Oxyhemoglobin, Arterial 97.1(H) 94.0 - 97.0 % 09/28/2024 3:17 PM [facility] Carboxyhemoglobin , Arterial 0.1 % 09/28/2024 3:17 PM [facility] Comment: Nonsmokers: 0.5-1.5% COHB ?? Smokers: Variable ??but usually less than 10% ?? Toxic: 20-30% COHB ?? Lethal: Greater than 60% COHB Methemoglobin, Arterial 0.2 <=1.5 % 09/28/2024 3:17 PM EST [facility] Sodium, Arterial 131(L) 135 - 145 mmol/L 09/28/2024 3:17 PM [facility] Potassium, Arterial 3.8 3.5 - 5.0 mmol/L 09/28/2024 3:17 PM [facility] Chloride, Arterial 99 98 - 107 mmol/L 09/28/2024 3:17 PM [facility] Lactate, Arterial 1.1 0.5 - 2.2 [...] TEST O RDERABLES [facility] [place] [address] * Surgical Pathology (09/28/2024 2:10 PM EST) Case Report Surgical Pathology Report ? Case: [id number] ? Authorizing Provider: ??Hayley Torres MD ? [...] 8:17 AM EST [facility] Vice President Biostatistics STRUCTURE OF LEFT LOWER LIMB / Unknown 09/28/2024 2:10 PM EST 09/28/2024 4:44 PM EST Comment:Left femoral proxima l graft Biomedical device (physical object) STRUCTURE OF LEFT LOWER LIMB / Unknown 09/28/2024 2:17 PM EST 09/28/2024 4:44 PM EST Comment:Left distal BK pop g raft Hayley Torres MD PATHOLOGY/CYTOLOGY O RDERABLES [facility] [place] [address] * Potassium (09/28/2024 10:45 AM EST) Potassium 4.6 3.5 - 5.0 mMol/L 09/28/2024 12:26 PM EST [facility] Blood VENOUS BLOOD SPECIMEN / Unknown Venipuncture / Unknown 09/28/2024 10:45 AM EST 09/28/2024 10:53 AM EST Marko Dickson MD CHEMISTRY ORDERABLES [facility] [place] [address] * POC, GLUCOSE (09/28/2024 7:57 AM EST) Glucometer, POC 192 65 - 199 mg/dL 09/28/2024 7:57 AM EST [facility] Comment:Supplemental ranges: <140 mg/dL before meals <180 mg/dL all other times of the day. Blood CAPILLARY BLOOD / Unknown 09/28/2024 7:57 AM EST 09/28/2024 7:57 AM EST Marko Dickson MD POINT OF CARE TEST O RDERABLES [facility] [place] [id number] * ELEN, legs, multiple levels (09/28/2024 7:44 AM EST) [facility] VB Text Report Department: Vascular Surgery Lab Patient: [id number] (GEOVANNA DIXON) CPT: 14940 Referring Physician: HERMILA SNIDER ?? Phone: Indications: [...] EST Narrative 09/28/2024 9:15 AM EST [address] [place] [address] ? Echocardiogram Report Name: GEOVNANA DIXON JR ?Study Date: 09/28/2024 06:56 AMBP: 132/75 mmHg ? Patient Location: ^IC08^A : 1975 ? Height: 179 cm ? Account: [id number] Age: 49 yrs ? Weight: 108 kg Gender: Male ?BSA: 2.3 m2 Ordering Physician: Marko Dickson MD Referring Physician: PATRIC GILES Performed By: Faiza Cole Reason For Study: Vascular graft infection, initial encounter; MRSA bacteremia Interpreting Fellow: Jame Lares. Exam Location: [facility]. Interpretation Summary -Limited study performed for [...] 05/29/2024, no significant changes. Procedure Limited - 38601. Doppler - 12271. Color Doppler - 37011. Suboptimal quality. This study is limited because [...] David Lomeli MD - 09/28/2024 [address] [place] [address] Echocardiogram Report Name: GEOVANNA DIXON JR Study Date: 406:56 AMBP: 132/75 mmHg Patient Location:[facility]^A : 1975 Height: 179 cm Account: [id number] Age: 49 yrs Weight: 108 kg Gender: Male BSA: 2.3 m2 Ordering Physician: Marko Dickson MD Referring Physician: PATRIC GILES Performed By: Faiza Cole Reason For Study: Vascular graft infection, initial encounter; MRSAbacteremia Interpreting Fellow: Jame Lares. Exam Location: [facility]. Interpretation Summary -Limited study performed for [...] 05/29/2024, no significant changes. Procedure Limited - 52045. Doppler - 11670. Color Doppler - 29735. Suboptimalquality. This study is limited because of [...] Dickson MD CHEMISTRY ORDERABLES Performing Organization Address [facility] Co de Phone Number [facility] [place] [address] * (ABNORMAL) Potassium (09/28/2024 4:55 AM EST) Potassium 2.9(LLL) 3.5 - 5.0 mMol/L 09/28/2024 5:31 AM EST [facility] Blood VENOUS BLOOD SPECIMEN / Unknown Venipuncture / Unknown 09/28/2024 4:55 AM EST 09/28/2024 5:01 AM EST Marko Dickson MD CHEMISTRY ORDERABLES Performing Organization Address [facility] Co de Phone Number [facility] [place] [address] * (ABNORMAL) POC, GLUCOSE (09/28/2024 3:54 AM EST) Glucometer, POC 229(H) 65 - 199 mg/dL 09/28/2024 3:54 AM EST [facility] Comment:Supplemental ranges: <140 mg/dL before meals <180 mg/dL all other times of the day. Blood CAPILLARY BLOOD / Unknown 09/28/2024 3:54 AM EST 09/28/2024 3:54 AM EST Marko Dickson MD POINT OF CARE TEST O RDERABLES Performing Organization Address [facility] Co de Phone Number [facility] [place] [address] * Magnesium (09/27/2024 11:58 PM EST) Magnesium 0.77 0.69 - 1.07 mMol/L 09/28/2024 12:38 AM [facility] Blood VENOUS BLOOD SPECIMEN / Unknown Venipuncture / Unknown 09/27/2024 11:58 PM EST 09/28/2024 12:10 AM EST Hayley Torres MD CHEMISTRY ORDERABLES [facility] [place] [address] * (ABNORMAL) Basic Metabolic Panel (09/27/2024 11:58 PM EST) Glucose 246(H) 65 - 199 mg/dL 09/28/2024 12:38 AM [facility] Comment:Glucose Concentratio n >=200 mg/dL plus symptoms is consistent with Diabetes Mellitus. Blood Urea Nitrogen 5(L) 10 - 20 mg/dL 09/28/2024 12:38 AM [facility] Creatinine 0.48(L) 0.80 - 1.50 mg/dL 09/28/2024 12:38 AM [facility] Sodium 131(L) 135 - 145 mMol/L [...] MD CHEMISTRY ORDERABLES [facility] [place] [address] * (ABNORMAL) CBC (with Diff) (09/27/2024 11:58 [facility] Lymph % 10.5 % 09/28/2024 12:14 [...] 0.10 x10(3)/mc L 09/28/2024 12:14 AM EST [facility] Immature Gran % 1.4 % 12:14 AM EST [facility] Immature Gran Absolute 0.24(H) 0.00 - 0.04 x10(3)/mc L 09/28/2024 12:14 AM [facility] Blood VENOUS BLOOD SPECIMEN / Unknown Venipuncture / Unknown 09/27/2024 11:58 PM EST 09/28/2024 12:10 AM EST Hayley Torres MD HEMATOLOGY ORDERABLE S [facility] [place] [address] * (ABNORMAL) POC, GLUCOSE (09/27/2024 11:46 PM EST) Glucometer, POC 205(H) 65 - 199 mg/dL 09/27/2024 11:46 PM EST [facility] Comment:Supplemental ranges: <140 mg/dL before meals <180 mg/dL all other times of the day. Blood CAPILLARY BLOOD / Unknown 09/27/2024 11:46 PM EST 09/27/2024 11:46 PM EST Marko Dickson MD POINT OF CARE TEST O RDERABLES [facility] [place] [address] * (ABNORMAL) Blood culture (09/27/2024 9:33 PM EST) Blood Culture Methicillin Resistant Staphylococcus aureus(Critical) 10/02/2024 8:04 AM EST [facility] Comment:Susceptibilities pre viously reported. Gram Stain Aerobic Bottle: Gram positive cocci in clusters(Critical ) 10/02/2024 8:04 AM EST [facility] Blood VENOUS BLOOD SPECIMEN / Unknown Venipuncture / Unknown 09/27/2024 9:33 PM EST 09/27/2024 9:38 PM EST Marko Dickson MD MICROBIOLOGY - BLOOD ORDERABLES Performing Organization Address [facility]/ZIP Co de Phone Number [facility] [place] [address] * POC, GLUCOSE (09/27/2024 7:51 PM EST) Glucometer, POC 142 65 - 199 mg/dL 09/27/2024 7:51 PM EST [facility] Comment:Supplemental ranges: <140 mg/dL before meals <180 mg/dL all other times of the day. Blood CAPILLARY BLOOD / Unknown 09/27/2024 7:51 PM EST 09/27/2024 7:51 PM EST Marko Dickson MD POINT OF CARE TEST O RDERABLES Performing Organization Address [facility] Co de Phone Number [facility] [place] [address] * (ABNORMAL) Hemogram (09/27/2024 5:55 PM EST) [...] - 35.7 g/dL 09/27/2024 6:16 PM EST [facility] Platelet 322 145 - [...] EST Marko Dickson MD HEMATOLOGY ORDERABLE S [facility] [place] [address] * POC, GLUCOSE (09/27/2024 5:48 PM EST) [facility] Signature Glucometer, POC 171 65 - 199 mg/dL 09/27/2024 5:48 PM EST [facility] Comment:Supplemental ranges: <140 mg/dL before meals <180 mg/dL all other times of the day. Blood CAPILLARY BLOOD / Unknown 09/27/2024 5:48 PM EST 09/27/2024 5:48 PM EST Marko Dickson MD POINT OF CARE TEST O RDERABLES [facility] [place] [address] * Anaerobic Culture (09/27/2024 4:54 PM EST) Anaerobic Culture No anaerobic organisms isolated 10/01/2024 3:54 PM EST [facility] Tissue STRUCTURE OF LEFT THIGH / Unknown 09/27/2024 4:54 PM EST Comment:Infected explanted l eft leg bypass graft Hayley Torres MD MICROBIOLOGY - GENER AL ORDERABLES [facility] [place] [address] * (ABNORMAL) Tissue Culture, Aerobic Only (09/27/2024 [...] - GENER AL ORDERABLES Performing Organization Address [facility] Co de Phone Number [facility] [place] [address] * Fungus culture (09/27/2024 4:54 PM EST) Fungus Culture No fungus isolated 10/31/2024 7:55 AM EST [facility] Tissue STRUCTURE OF LEFT THIGH / Unknown 09/27/2024 4:54 PM EST 09/27/2024 5:23 PM EST Comment:Infected explanted l eft leg bypass graft Hayley Torres MD MICROBIOLOGY - GENER AL ORDERABLES Performing Organization Address [facility] Phone Number [facility] [place] [address] * POC, GLUCOSE (09/27/2024 3:23 PM EST) Glucometer, POC 178 65 - 199 mg/dL 09/27/2024 3:23 PM EST [facility] Comment:Supplemental ranges: <140 mg/dL before meals <180 mg/dL all other times of the day. Blood CAPILLARY BLOOD / Unknown 09/27/2024 3:23 PM EST 09/27/2024 3:23 PM EST Marko Dickson MD POINT OF CARE TEST O RDERABLES Performing Organization Address [facility] Co de Phone Number [facility] [place] [address] * POC, GLUCOSE (09/27/2024 11:29 AM EST) Glucometer, POC 181 65 - 199 mg/dL 09/27/2024 11:29 AM EST [facility] Comment:Supplemental ranges: <140 mg/dL before meals <180 mg/dL all other times of the day. Blood CAPILLARY BLOOD / Unknown 09/27/2024 11:29 AM EST 09/27/2024 11:30 AM EST Marko Dickson MD POINT OF CARE TEST O RDERABLES [facility] [address] * CT Lower Extremity w Contrast Left (09/27/2024 9:16 AM EST) WORKSTATION ID [id number] [facility] Anatomical Region Laterality Modality Hip, Leg, Knee, [...] who have questions please contact the health resident care director that requested your imaging first. [...] wedged between the vastus medialis and adductor Mosca muscle. This tracks into the popliteal fossa [...] to phase of contrast administration.. Procedure Note Chi, Ignacia Y, MD - 09/27/2024 EXAMINATION: CT LOWER EXTREMITY [...] is wedgedbetween the vastus medialis and adductor Mosca muscle. This tracks into thepopliteal fossa and [...] patients who have questions please contactthe health resident care director that requested your imaging first. Rose Wright [employer] [facility] [facility] CT ORDERABL ES * POC, GLUCOSE (09/27/2024 7:51 AM EST) [facility] Glucometer, POC 194 65 - 199 mg/dL 09/27/2024 7:51 AM EST [facility] Comment:Supplemental ranges: <140 mg/dL before meals <180 mg/dL all other times of the day. Blood CAPILLARY BLOOD / Unknown 09/27/2024 7:51 AM EST 09/27/2024 7:51 AM EST Marko Dickson MD POINT OF CARE TEST O RDERABLES [facility] [place] [address] * (ABNORMAL) MRSA PCR Screen (09/27/2024 7:51 AM EST) [facility] MRSA PCR Detected(A ) 09/27/2024 11:56 AM EST [facility] Swab BOTH ANTERIOR NARES / Unknown Non Blood Collection / Unknown 09/27/2024 7:51 AM EST 09/27/2024 8:05 AM EST Narrative [facility] - 09/27/2024 11:56 AM EST This test was performed using the Xpert MRSA NxG test kit and is run on the [employer] GeneXpert Dx System. This test is cleared by the U.S. Food and Drug Administration for clinical use and its performance characteristics have been verified by the [facility] at [facility]. Marko Dickson MD MOLECULAR ORDERABLES [facility] [place] [address] * Potassium (09/27/2024 7:51 AM EST) Potassium 3.5 3.5 - 5.0 mMol/L 09/27/2024 9:09 AM EST [facility] Blood VENOUS BLOOD SPECIMEN / Unknown Venipuncture / Unknown 09/27/2024 7:51 AM EST 09/27/2024 8:05 AM EST Marko Dickson MD CHEMISTRY ORDERABLES Performing Organization Address City/[facility]/ZIP Co de Phone Number [facility] [place] [address] * (ABNORMAL) Potassium (09/27/2024 5:05 AM EST) Potassium 3.4(L) 3.5 - 5.0 mMol/L 09/27/2024 5:32 AM EST [facility] Blood VENOUS BLOOD SPECIMEN / Unknown Venipuncture / Unknown 09/27/2024 5:05 AM EST 09/27/2024 5:09 AM EST Marko Dickson MD CHEMISTRY ORDERABLES Performing Organization Address City/[facility]/ZIP Co de Phone Number [facility] [place] [address] * POC, GLUCOSE (09/27/2024 3:52 AM EST) Glucometer, POC 199 65 - 199 mg/dL 09/27/2024 3:52 AM EST [facility] Comment:Supplemental ranges: <140 mg/dL before meals <180 mg/dL all other times of the day. Blood CAPILLARY BLOOD / Unknown 09/27/2024 3:52 AM EST 09/27/2024 3:52 AM EST Marko Dickson MD POINT OF CARE TEST O RDERABLES Performing Organization Address [facility] Co de Phone Number [facility] [place] [address] * (ABNORMAL) POC, GLUCOSE (09/27/2024 1:59 AM EST) Glucometer, POC 219(H) 65 - 199 mg/dL 09/27/2024 2:00 AM EST [facility] Comment:Supplemental ranges: <140 mg/dL before meals <180 mg/dL all other times of the day. Blood CAPILLARY BLOOD / Unknown 09/27/2024 1:59 AM EST 09/27/2024 2:00 AM EST Marko Dickson MD POINT OF CARE TEST O RDERAHERNANDEZ Performing Organization Address City/[facility]/ZIP Co de Phone Number [facility] [place] [address] * (ABNORMAL) Magnesium (09/27/2024 12:01 AM EST) Magnesium 0.68(L) 0.69 - 1.07 mMol/L 09/27/2024 12:35 AM EST [facility] Blood VENOUS BLOOD SPECIMEN / Unknown Venipuncture / Unknown 09/27/2024 12:01 AM EST 09/27/2024 12:05 AM EST Hayley Torres MD CHEMISTRY ORDERABLES [facility] [place] [address] * (ABNORMAL) Basic Metabolic Panel (09/27/2024 12:01 AM EST) Glucose 261(H) 65 - 199 mg/dL 09/27/2024 12:35 AM EST [facility] Comment:Glucose Concentratio n >=200 mg/dL plus symptoms is consistent with Diabetes Mellitus. Blood Urea Nitrogen 7(L) 10 - 20 mg/dL 09/27/2024 12:35 AM [facility] Creatinine 0.45(L) 0.80 - 1.50 mg/dL 09/27/2024 12:35 AM [facility] Sodium 128(L) 135 - 145 mMol/L [...] m?? 09/27/2024 12:35 AM [facility] MD CHEMISTRY ORDERABLES [facility] [place] [address] * (ABNORMAL) CBC (with Diff) (09/27/2024 12:01 AM EST) White Blood Cell 23.20(H) 4.00 - 9.50 x10(3)/mc L 09/27/2024 12:10 AM [facility] Red Blood Cell 4.07(L) 4.58 - 5.54 x10(6)/mc L 09/27/2024 12:10 AM [facility] Hemoglobin 11.7(L) 13.7 - 16.5 g/dL [...] [facility] Monocyte Absolute 1.80(H) 0.30 - 0.90 [...] - 0.04 x10(3)/mc L 09/27/2024 12:10 AM EST [facility] Blood VENOUS BLOOD SPECIMEN / Unknown Venipuncture / Unknown 09/27/2024 12:01 AM EST 09/27/2024 12:05 AM EST Hayley Torres MD HEMATOLOGY ORDERABLE S [facility] [place] [address] * (ABNORMAL) POC, GLUCOSE (09/26/2024 11:59 PM EST) Glucometer, POC 251(H) 65 - 199 mg/dL 09/26/2024 11:59 PM EST [facility] Comment:Supplemental ranges: <140 mg/dL before meals <180 mg/dL all other times of the day. Blood CAPILLARY BLOOD / Unknown 09/26/2024 11:59 PM EST 09/26/2024 11:59 PM EST Marko Dickson MD POINT OF CARE TEST O RDERAHERNANDEZ Performing Organization Address City/[facility]/ZIP Co de Phone Number [facility] [place] [address] * (ABNORMAL) POC, GLUCOSE (09/26/2024 7:34 PM EST) Glucometer, POC 204(H) 65 - 199 mg/dL 09/26/2024 7:34 PM EST [facility] Comment:Supplemental ranges: <140 mg/dL before meals <180 mg/dL all other times of the day. Blood CAPILLARY BLOOD / Unknown 09/26/2024 7:34 PM EST 09/26/2024 7:35 PM EST Marko Dickson MD POINT OF CARE TEST O RDERAHERNANDEZ [facility] [place] [address] * (ABNORMAL) Blood culture (09/26/2024 6:45 PM [...] Marko Dickson MD MICROBIOLOGY - BLOOD ORDERABLES [facility] [place] [address] * (ABNORMAL) Sonicated Tissue/Implant Culture (09/26/2024 5:16 [...] Dickson MD MICROBIOLOGY - GENER AL ORDERABLES [facility] [place] [address] * Anaerobic Culture (09/26/2024 5:02 PM EST) [...] GENER AL ORDERABLES [facility] [place] [address] * (ABNORMAL) Abscess/Wound Aspirate Culture, Aerobic Only [...] GENER AL ORDERABLES [facility] [place] [address] * Fungus culture (09/26/2024 5:02 PM EST) Fungus Culture No fungus isolated 10/24/2024 7:54 AM EST [facility] Abscess STRUCTURE OF LEFT KNEE REGION / Unknown Non Blood Collection / Unknown 09/26/2024 5:02 PM EST 09/26/2024 5:08 PM EST Comment:Left Below Knee popl iteal fluid Please perform Gram stain if not included in order Hayley Torres MD MICROBIOLOGY - GENER AL ORDERABLES Performing Organization Address [facility] Co de Phone Number [facility] [place] [address] * Anaerobic Culture (09/26/2024 4:50 PM EST) Anaerobic Culture No anaerobic organisms isolated 09/30/2024 3:51 PM EST [facility] Abscess LEFT INGUINAL REGION STRUCTURE / Unknown Non Blood Collection / Unknown 09/26/2024 4:50 PM EST Comment:Left Groin Fluid Hayley Torres MD MICROBIOLOGY - GENER AL ORDERABLES Performing Organization Address City/[facility] Co de Phone Number [facility] [place] [address] * (ABNORMAL) Abscess/Wound Aspirate Culture, Aerobic Only [...] - GENER AL ORDERABLES Performing Organization Address [facility] Co de Phone Number [facility] [place] [address] * Fungus culture (09/26/2024 4:50 PM EST) Pathologist [facility] Fungus Culture No fungus isolated 10/24/2024 7:54 AM [facility] Abscess LEFT INGUINAL REGION STRUCTURE / Unknown Non Blood Collection / Unknown 09/26/2024 4:50 PM EST 09/26/2024 4:56 PM EST Comment:Left Groin Fluid Hayley Torres MD MICROBIOLOGY - GENER AL ORDERABLES Performing Organization Address [facility] Co de Phone Number [facility] [place] [address] * (ABNORMAL) Blood Gas, Arterial POC (09/26/2024 [...] CARE TEST O GILDA Performing Organization Address City/[facility]/ZIP Co de Phone Number [facility] [place] [address] * (ABNORMAL) POC, GLUCOSE (09/26/2024 4:29 PM EST) Glucometer, POC 213(H) 65 - 199 mg/dL 09/26/2024 4:30 PM EST [facility] Comment:Supplemental ranges: <140 mg/dL before meals <180 mg/dL all other times of the day. Blood CAPILLARY BLOOD / Unknown 09/26/2024 4:29 PM EST 09/26/2024 4:30 PM EST Marko Dickson MD POINT OF CARE TEST O GILDA Performing Organization Address [facility]/ZIP Co de Phone Number [facility] [place] [address] * (ABNORMAL) Blood Gas, Venous POC (09/26/2024 [...] - 145 mmol/L 09/26/2024 3:30 PM EST [facility] Potassium, Venous 3.3(L) 3.5 - 5.0 mmol/L 09/26/2024 3:30 PM EST [facility] Chloride, Venous 91(L) 98 [...] TEST O RDERABLES [facility] [place] [address] * (ABNORMAL) Scan, Peripheral Blood (09/26/2024 2:39 PM EST) RBC Morphology Abnormal 09/26/2024 3:21 PM EST [facility] Platelet Estimate Normal Normal 09/26/2024 3:21 PM [facility] Microcyte 1-5 /HPF 09/26/2024 3:21 PM [...] MD HEMATOLOGY ORDERABLE S Performing Organization Address City/[facility]/ZIP Co de Phone Number [facility] [place] [address] * ABORH RECHECK (PATIENT HISTORY FOUND) (09/26/2024 2:39 PM EST) [facility] ABORH Recheck Progress Complete 09/26/2024 5:01 PM EST [facility] Blood VENOUS BLOOD SPECIMEN / Unknown Venipuncture / Unknown 09/26/2024 2:39 PM EST 09/26/2024 2:56 PM EST Marko Dickson MD BLOOD BANK LAB ORDER RANDELL Performing Organization Address City/[facility]/ZIP Co de Phone Number [facility] [place] [place] [address] * (ABNORMAL) Hepatic Function Panel (09/26/2024 2:39 PM EST) [facility] Albumin 3.1(L) 3.2 - 5.2 g/dL 09/26/2024 4:23 PM EST [facility] Aspartate Aminotransferase 16 <=39 unit/L 09/26/2024 4:23 PM EST [facility] Alanine Aminotransferase 14 0 - 55 unit/L 09/26/2024 4:23 PM EST [facility] Alkaline Phosphatase 160(H) 40 - 130 unit/L 09/26/2024 4:23 PM EST [facility] Bilirubin, Total 0.4 <=1.3 mg/dL 09/26/2024 4:23 PM [facility] Bilirubin, Direct 0.2 0.0 - 0.3 mg/dL 09/26/2024 4:23 PM [facility] Protein, Total 7.0 6.1 - 8.0 g/dL 09/26/2024 4:23 PM [facility] Blood VENOUS BLOOD SPECIMEN / Unknown Venipuncture / Unknown 09/26/2024 2:39 PM EST 09/26/2024 2:50 PM EST Marko Dickson MD CHEMISTRY ORDERABLES [facility] [place] [address] * (ABNORMAL) Basic Metabolic Panel (09/26/2024 2:39 [...] MD CHEMISTRY ORDERABLES [facility] [place] [address] * (ABNORMAL) CBC (with Diff) (09/26/2024 2:39 [...] 1.2 % 3:21 PM [facility] [...] PM EST 09/26/2024 2:50 PM EST Hayley M Beach MD HEMATOLOGY ORDERABLE S Performing Organization Address City/[facility]/ZIP Co de Phone Number [facility] [place] [address] * Phosphorus (09/26/2024 2:39 PM EST) Pathologist [facility] Phosphorus 3.2 2.5 - 4.5 mg/dL 09/26/2024 4:05 PM EST [facility] Blood VENOUS BLOOD SPECIMEN / Unknown Venipuncture / Unknown 09/26/2024 2:39 PM EST 09/26/2024 2:50 PM EST Marko Dickson MD CHEMISTRY ORDERABLES Performing Organization Address City/[facility]/ZIP Co de Phone Number [facility] [place] [address] * (ABNORMAL) Magnesium (09/26/2024 2:39 PM EST) [facility] Magnesium 0.65(L) 0.69 - 1.07 mMol/L 09/26/2024 4:05 PM EST [facility] Blood VENOUS BLOOD SPECIMEN / Unknown Venipuncture / Unknown 09/26/2024 2:39 PM EST 09/26/2024 2:50 PM EST Marko Dickson MD CHEMISTRY ORDERABLES Performing Organization Address City/[facility]/ZIP Co de Phone Number [facility] [place] [address] * Type and screen ([facility]/CGP/BABITA) (09/26/2024 2:39 PM EST) Pathologist [facility] ABORH Type A POSITIVE 09/26/2024 3:45 PM EST [facility] PATIENT HISTORY Found 09/26/2024 3:45 PM EST [facility] Expires at 2359 on: 09/29/2024 09/26/2024 3:45 PM EST [facility] ANTIBODY SCREEN AUTOMATED Negative 09/26/2024 3:45 PM EST [facility] T&S only valid at [facility] 09/26/2024 3:45 PM EST [facility] Blood VENOUS BLOOD SPECIMEN / Unknown Venipuncture / Unknown 09/26/2024 2:39 PM EST 09/26/2024 2:56 PM EST Narrative [facility] - 09/26/2024 3:45 PM EST This Type and Screen result is only valid at the [facility] Marko Dickson MD BLOOD BANK LAB ORDER RANDELL Performing Organization Address City/[facility] Co de Phone Number [facility] [place] [address] * (ABNORMAL) Fibrinogen (09/26/2024 2:39 PM EST) [...] MD HEMATOLOGY ORDERABLE S Performing Organization Address [facility] Co de Phone Number [facility] [place] [address] * APTT (09/26/2024 2:39 PM EST) Partial [...] MD HEMATOLOGY ORDERABLE S Performing Organization Address City/[facility]/ZIP Co de Phone Number [facility] [place] [address] * (ABNORMAL) Prothrombin Time (09/26/2024 2:39 PM EST) [facility] Prothrombin Time 21.6(H) 9.4 - 12.5 sec [...] EST Marko Dickson MD HEMATOLOGY ORDERABLE S [facility] [place] [address] * (ABNORMAL) POC, GLUCOSE (09/26/2024 2:36 PM EST) [facility] Glucometer, POC 268(H) 65 - 199 mg/dL 09/26/2024 2:36 PM EST [facility] Comment:Supplemental ranges: <140 mg/dL before meals <180 mg/dL all other times of the day. Blood CAPILLARY BLOOD / Unknown 09/26/2024 2:36 PM EST 09/26/2024 2:36 PM EST Marko Dickson MD POINT OF CARE TEST O RDERABLES [facility] [place] [address] * (ABNORMAL) Blood culture (09/26/2024 2:22 PM EST) [facility] Blood Culture Methicillin Resistant Staphylococcus aureus(Critical) VITEK 2 METHOD 10/07/2024 7:40 AM EST [facility] Comment: detected by PCR Isolate saved. If future testing is required, contact the Microbiology Fulling Machine Operator. Gram Stain Aerobic Bottle: Gram [...] - BLOOD ORDERABLES Performing Organization Address City/State/[facility] Co de Phone Number [facility] [place] [address] * Request For 2nd Read CT Lower Extremity (09/26/2024 1:50 PM EST) Pathologist [employer] WORKSTATION ID [id number] RAD Anatomical Region Laterality Modality Hip, Leg, [...] who have questions please contact the health resident care director that requested your imaging first. ? Electronically signed by: Lisette Bruno MD, [facility] ([phone]), at 09/26/2024 3:01 PM Narrative 09/26/2024 3:01 PM EST EXAMINATION: REQUEST FOR 2ND READ CT LOWER EXTREMITY CLINICAL HISTORY: Pt s/p LLE femoral-below knee popliteal bypass with PTFE graft, c/f infection surrounding graft, en route to [facility] for possible vascular surgery intervention; Sending Institution [facility]; Date of exam [id number]; I believe [...] example on series 3, image 8 and 352, 201, 112, 212. No other rim-enhancing fluid collection is [...] c/f infection surrounding graft, en route to [facility] for possiblevascular surgery intervention; Sending Institution [facility]; Date of exam [id number]; Ibelieve a [...] on series 3, image 8 and 641, 262,521, 472. No other rim-enhancing fluid collection is seen. [...] patients who have questions please contactthe health resident care director that requested your imaging first. Electronically signed by: Lisette Bruno MD, [facility]([phone]), at 09/26/2024 3:01 PM Marko Dickson MD [...] RN) 2115 (New Bag - Provider: Lauren Zavlaa, DAVID)214 (Stopped - Provider: Lauren Zavala RN) [...] Routine documented in this encounter Care Teams Dental Treatment Coordinator Relationship Specialty Start Date End Date Charles Romero [place] [address] PCP - General Internal Medicine 09/18/24 documented as of this encounter
--- OUTSIDE RECORDS SUMMARY | 2024-10-31 15:37 | XMS_ITS | Encounter Summary ---
Author Organization [facility] [place] [address] Care Team Providers Care Java Developer Name Role Phone Charles Romero Primary Care Provider + Reason for Visit * Auth/Cert (Routine) Specialty Diagnoses / Procedures Referred By William moses Referred To Contact Diagnoses Vascular graft infection, initial encounter Sepsis [A41.9] T82.7XXA Procedures EMERGENCY IPI Angel Gonsalez MD [facility] [place] [address] [facility] Referral ID Status Reason Start Date Expiration Date Visits Re quested Visits Authorized [id number] 1 1 Encounter Details Date Type Department Care Team (Late st Contact Info) Description 09/27/2024 3:47 PM EST Anesthesia Event [place] [address] Joaquina Amor MD [facility] [place] [address] Marco Santana MD [facility] [place] [address] Anesthesia Record Procedure Summary Procedure Name Responsible [...] expected post-operative course (including disposition.) Franklyn Li, ACTIVITY AIDE 1625 Procedure Start 1653 Handoff Intra-procedure anesthesia care was transferred after review of the patient's history, current anesthetic/surgical status and procedural plan, anticipated issues and expected post-operative course (including disposition.) Franklyn Li, ACTIVITY AIDE 1720 Procedure Stop 1722 Extubation/LMA Out 1731 [...] by Liana Mccormack RN PIV 09/26/24; 1200; xxhu-yed-ymvxuc catheter system; 18 gauge; median cubital vein [...] monitoring, frequent blood gas measurement; Gio Christopher geography head; Sterile Prep, Sterile Gloves; 09/28/24; 0200 09/26/24 1606 by Jules Christopher ACTIVITY AIDE 09/28/24 0200 by Mariya Shi RN PIV 09/26/24; 1620; gpdy-bls-tibdjz catheter system; 14 gauge; median cubital vein (antecubital fossa), right; Ultrasound Guidance; Cheryl Santana; 10/02/24; 1000 09/26/24 1620 by Jules Christopher, ACTIVITY AIDE 10/02/24 1000 by Cyndi Castro RN Urethral Catheter 09/26/24; 1620; Surg wei longer than 2 hours, Physician order, Need for intraoperative urine output monitoring; Immobility without alternative; indwelling double lumen catheter; hydrophilic coated, latex; 14; inserted at [facility]; 1; 5; 10; none; drainage bag; [...] Teeth: 23 cm; Inserted by: Franklyn Li ACTIVITY AIDE; Removal Date: 09/27/24; Removal Time: 17209/27/24 1604 by Franklyn Li ACTIVITY AIDE 09/27/24 1722 by Desean Chavis CRNA Open [...] any time in the past 12 m [facility], were you homeless or living in [...] Procedure Summary Date: 09/27/24 Room / Location: [facility] OR [address] [place] [address] MAIN OR Anesthesia Start: 154 Anesthesia Stop: 1740 Procedure: DEBRIDEMENT SKIN AND SUBCU, LOWER EXTREMITY (WRVU 1.01) (Left) Diagnosis: (Infected explanted left leg bypass graft) Surgeons: Hayley Torres MD Responsible Provider: Joaquina Amor MD Anesthesia Type: general ASA Status: 3 All Anesthesia Providers: Anesthesiologist: Hailey Connor MD; Joaquina Amor MD ACTIVITY AIDE: Desean Chavis CRNA; Franklyn Li CRNA Vitals [...] 3.51) performed by Thony Garcia MD at [facility] MAIN OR ??? PRO BYPASS GRAFT OTHR, FEM-TIBIAL Left 08/01/2024 @BYPASS GRAFT, FEM-ANT TIBIAL, -POST TIBIAL, -PERONEAL, -DP W\ SYNTHETIC CONDUIT (WRVU 23.66) performed by Lisette Maldonado MD at [facility] MAIN OR ??? PRO CABG, ARTERY-VEIN, SINGLE 01/04/2012 @CABG, VENOUS & ARTERIAL GRAFT;SINGLE VEIN GRAFT performed by INNA TOVAR at [facility] MAIN OR ??? PRO ENDOSCOPY W/VIDEO-ASST VEIN HARVEST, CABG 01/04/2012 ENDOSCOPIC HARVEST VEIN(S) FOR CABG performed by INNA TOVAR at [facility] MAIN OR ??? VS ARTERIOGRAM LOWER EXTREMITY VASCULAR SURGERY 07/20/2024 VS Arteriogram Lower Extremity Vascular Surgery 07/20/2024 Taylor Ruiz MD [facility] INTERVENTIONL RAD Social History Tobacco Use [...] - Other Informed Consent: Plan discussed with ACTIVITY AIDE. Anesthesia Screening documented in this encounter Plan of Treatment Upcoming Encounters Date Type Department Care Team (Late st Contact Info) Description 11/09/2024 1:30 PM EST Office Visit [place] [address] Isabela Hayward, INSTANT POTATO PROCESSOR [facility] [place] [address] 11/10/2024 10:00 AM EST Office Visit [place] [phone] Dai Whitman, RESHMA 11/21/2024 2:15 PM EST Office Visit [place] [phone] Dayanara Grover MD [facility] [place] [address] documented as of this encounter Visit Diagnoses [...] over 4 Hours, Warning Vesicant/Irritant Medication Per semiconductor wafers etcher stripper labeling, do not administer or Y-site with [...] mg documented in this encounter Care Teams Java Developer Relationship Specialty Start Date End Date Charles Romero PA [facility] [address] PCP - General Internal Medicine 09/18/24 documented as of this encounter
--- OUTSIDE RECORDS SUMMARY | 2024-10-31 15:39 | XMS_ITS | Encounter Summary ---
Author Organization [facility] [place] [address] Care Team Providers Care Director Patient Accounting Name Role Phone Charles Romero Primary Care Provider + Reason for Visit * Auth/Cert (Routine) Specialty Diagnoses / Procedures Referred By William moses Referred To Contact Diagnoses Vascular graft infection, initial encounter Sepsis [A41.9] T82.7XXA Procedures EMERGENCY IPI Angel Gonsalez MD [facility] [place] [address] [facility] Referral ID Status Reason Start Date Expiration Date Visits Re quested Visits Authorized [id number] 1 1 Encounter Details Date Type Department Care Team (Late st Contact Info) Description 09/26/2024 3:53 PM EST Anesthesia Event [place] [address] Marco Santana MD [facility] DR ANESTHESIOLOGY [place] [address] Sigrid Chatman DO [facility] ANESTHESI[place]Y [place] [address] Anesthesia Record Procedure Summary Procedure Name Responsible [...] by Liana Mccormack RN PIV 08/01/24; 0637; hzil-tpa-ywdvrt catheter system; 20 gauge; metacarpal vein (top [...] by Pamela Eli RN PIV 09/26/24; 1200; pdku-pti-dpkanl catheter system; 18 gauge; median cubital vein [...] monitoring, frequent blood gas measurement; Gio Christopher asset management analyst; Sterile Prep, Sterile Gloves; 09/28/24; 0200 09/26/24 1606 by Jules Christopher, [employer] HAND 09/28/24 0200 by Mariya Shi RN PIV 09/26/24; 1620; chdm-rqg-qqspvo catheter system; 14 gauge; median cubital vein (antecubital fossa), right; Ultrasound Guidance; Pat Esther; 10/02/24; 1000 09/26/24 1620 by Jules Christopher CRNA 10/02/24 1000 by Cyndi Castro RN Urethral Catheter 09/26/24; 1620; Surg wei longer than 2 hours, Physician order, Need for intraoperative urine output monitoring; Immobility without alternative; indwelling double lumen catheter; hydrophilic coated, latex; 14; inserted at [facility]; 1; 5; 10; none; drainage [...] = 0.6 oz pur e alcohol) [facility] Utilities Answer Date Recorded In [...] Procedure Summary Date: 09/26/24 Room / Location: [facility] OR / [facility] MAIN OR Anesthesia Start: 155 Anesthesia Stop: 182 Procedure: EXCISION OF INFECTED GRAFT FROM LOWER EXTREMITY (WRVU 9.53) (Left: Groin) Diagnosis: (left infected femoral to below knee bypass graft) Surgeons: Hayley Torres MD Responsible Provider: Marco Santana MD Anesthesia Type: general ASA Status: 3 - Emergent All Anesthesia Providers: Anesthesiologist: Marco Santana MD; Jonnathan Hernandez MD [employer] HAND: Jules Christopher CRNA Vitals Value Taken Time [...] 3.51) performed by Thony Garcia MD at [facility] MAIN OR ??? PRO BYPASS GRAFT OTHR, FEM-TIBIAL Left 08/01/2024 @BYPASS GRAFT, FEM-ANT TIBIAL, -POST TIBIAL, -PERONEAL, -DP W\ SYNTHETIC CONDUIT (WRVU 23.66) performed by Lisette Maldonado MD at [facility] MAIN OR ??? PRO CABG, ARTERY-VEIN, SINGLE 01/04/2012 @CABG, VENOUS & ARTERIAL GRAFT;SINGLE VEIN GRAFT performed by INAN TOVAR at [facility] MAIN OR ??? PRO ENDOSCOPY W/VIDEO-ASST VEIN HARVEST, CABG 01/04/2012 ENDOSCOPIC HARVEST VEIN(S) FOR CABG performed by INNA TOVAR at [facility] MAIN OR ??? VS ARTERIOGRAM LOWER EXTREMITY VASCULAR SURGERY 07/20/2024 VS Arteriogram Lower Extremity Vascular Surgery 07/20/2024 Taylor Ruiz MD [facility] INTERVENTIONL RAD Social History Tobacco [...] consented to blood products. Plan discussed with [employer] HAND. Anesthesia Screening documented in this encounter Plan of Treatment Upcoming Encounters Date Type Department Care Team (Late st Contact Info) Description 11/09/2024 1:30 PM EST Office [place] [phone] Isabela Hayward, RESHMA [facility] [place] [address] 11/10/2024 10:00 AM EST Office [place] [phone] Dai Whitman APRN 11/21/2024 2:15 PM EST Office [place] [phone] Dayanara Grover MD [facility] DR ENDOCRIN[place]Y [place] [address] documented as of this encounter Visit Diagnoses [...] at 1825, Anesthesia Intra-op New Bag 09/26/2024 3:57 PM EST ondansetron (pf) (Zofran) [...] over 4 Hours, Warning Vesicant/Irritant Medication Per faculty head labeling, do not administer or Y-site with [...] mL/hr documented in this encounter Care Teams Director Patient Accounting Relationship Specialty Start Date End Date Charles Romero PA [address] [place] [address] PCP - General Internal Medicine 09/18/24 documented as of this encounter
--- OUTSIDE RECORDS SUMMARY | 2024-10-31 15:39 | XMS_ITS | Encounter Summary ---
Author Organization [facility] [place] [address] Care Team Providers Care Manager Lpn Name Role Phone Charles Romero Primary Care Provider + Reason for Visit * Auth/Cert (Routine) Specialty Diagnoses / Procedures Referred By William moses Referred To Contact Diagnoses Vascular graft infection, initial encounter Sepsis [A41.9] T82.7XXA Procedures EMERGENCY IPI Angel Gonsalez MD [facility] [place] [address] [facility] Referral ID Status Reason Start Date Expiration Date Visits Re quested Visits Authorized [id number] 1 1 Encounter Details Date Type Department Care Team (Late st Contact Info) Description 09/27/2024 3:10 PM EST - 09/27/2024 5:00 PM EST Surgery [place] [address] Hayley Torres MD [facility] [place] [address] DEBRIDEMENT SKIN AND SUBCU, LOWER EXTREMITY (WRVU [...] in the past 12 m [facility], were you homeless or living in a [...] Operations/Major Procedures: 09/26/24: Explant of infected LEFT GANG LEADER to below-knee popliteal artery PTFE bypass graft [...] 2nd toe amputation who was transferred from [facility] given concern for infected left fem-BK [...] pericardial patch and PTFE willard over the GANG LEADER was unincorporated. - Resection of prior femoral [...] Sartorius flap healthy and starting to adhere. Otley drains removed with replacement of 15 Fr [...] 2 tablespoons of dried fruit. Milk and li-bzrxe-vqlef yogurt have 15 grams of carbs in a serving. A serving is 1 cup of milk or 3/4 cup (6 oz) of jo-jvdns-ocfuf yogurt. Starchy vegetables have 15 grams of carbs in a serving. A serving is ?? cup of mashed potatoes or sweet potato; 1 cup winter squash; ?? of a small baked potato; ?? cup of cooked beans; or ?? cup cooked corn or green peas. Learn how much carbs to eat each day and at each meal. A dietitian or certified financial planner can teach you how to keep track [...] was scheduled for a f/u nutrition evaluation. Vice President Of Product Marketing met pt at bedside. Pt sharedthat his [...] Based on current findings- home (sister & uupogyl-lp-lad's home) Consult Recommendations: No other consults recommended [...] Loss: None Karolyn Hudson MD Vascular Surgery, 5680 10/09/24 Important Studies and Lab Data: Labs: [...] 05/29/2024, no significant changes. Procedure Limited - 98390. Doppler - 47935. Color Doppler - 22316. Suboptimal quality. This study is limited because [...] on series 3, image 8 and 641, 462, 758, 122. No other rim-enhancing fluid collection is seen. [...] Hayward APRN Infectious Disease [place] [facility] [place]rive at: Home [phone] To view instructions for your video visit, click here, or visit this website: [email or web address] If you have not previously downloaded the [facility] patient portal software, [place], please do so by clicking one of the links below or searching in your device's lobito store. NextPage devices 11/09/2024 1:30 PM Isabela Hayward APRN Infectious Disease at [facility] Arrive at: Warehouse Associate Driver Area [phone] 11/21/2024 2:15 PM Dayanara Grover MD Endocrinology at [facility] Arrive at: Warehouse Associate Driver Area 3A [phone] Future Orders Complete By Expires CBC (with Diff) [POV926 Custom] 10/17/2024 12/11/2024 Process Instructions: INCLUDES: WBC, RBC, Hgb, Hct, Platelets, RBC Indices and Differential Scheduling Instructions: Comments: Questions: OPAT: Order / Recommendation for Post Discharge IV Antibiotic Management [DQW156 CPT(R)] As directed Process Instructions: If no progress note charted, please enter Clinical details in comments. Scheduling Instructions: Comments: - If this order was signed greater than 72 hours prior to [facility] discharge, please call to confirm the accuracy of this order. Please Fax all results to: OPAT Program Infectious Disease Section [facility], [place] [address] FAX: - After hours, please contact the Infectious Disease Physician inventory control assistant at . - Line care instructions - see flush/heparin orders. Facilities may follow organizational policies/practices regarding heparin. - FDC for medication administration/trash collector supervisor and catheter care/maintenance authorized. - CVC/PICC Dressing Change weekly and PRN Please use CHG or Bio Patch RN: Please care for PICC line including dressing changes weekly and prn. Please draw labs every Wednesday and PRN and fax results to OPAT at [phone]. Please draw labs off PICC line. [facility]. Please RN visit for IV ABX teaching and ongoing assessment. Jail for Medication Administration/Hookup and catheter care/maintenance: - Teach Patient/Caregiver goals/self-monitoring/therapy administration to independence per the Nursing Care Plan. - FDC visit frequency; initial, weekly and 2 PRN [...] Amaya Hernandez MD Referral for Outpatient Antibiotics [OHY4176 CPT(R)] As directed Process Instructions: Scheduling Instructions: [...] Jr. for admission to Home Health. [address] [facility] [address] Phone Number: [phone] (home) Date of : 1975 Inpatient DOCUMENTATION FOR VNA SERVICES (INCLUDING THOSE PATIENTS WITH MEDICARE COVERAGE REQUIRING HOME VNA SERVICES AND/OR HOSPICE SERVICES) PATIENT'S LOCATION: Geovanna Dixon Jr. [address] [facility] [address] [facility] [address] [phone] (home) Cell: Telephone Information: Ship Pilot Dispatcher's Name: Geovanna In discussion with the attending physician, it is certified that this patient is under their care and that they, or a Nurse Practitioner, Clinical Nurse specialist or Physician Mis Director who is working directly with them, had [...] [facility] [address] [place] [address] START OF CARE: within 24-48 hours of discharge Patient has Medicare Please note that any additional orders needs or changes will need to be obtained from this patient's PCP: JUSTIN Roberson [address] [facility] [address] . All VNA agencies which cover the area of patient's residence have been reviewed, either verbally or in writing, andpatient/family have chosen the home health care agency noted. Questions: Disciplines Requested: Nursing Physical Therapy Occupational Therapy Recurring Lab Work Interval Expires CBC (with Diff) [[id number] Custom] Once a week until 12/10/2024 12/10/2024 [...] For any problems or questions please call [phone] For issues on weeknights after 5pm and weekends please call [phone] and ask for the Vascular Fellow inventory control assistant. Discharge Medications: Your Medications New Medications Dose [...] - See Instructions). FLUSH PROTOCOL WITH MEDICATIONS ([facility]): Before med infusion: flush with NS [...] - See Instructions). FLUSH PROTOCOL WITH MEDICATIONS ([facility]): Before med infusion: flush with NS [...] this completed at 3[place] at [facility] prior to your scheduled [...] For any problems or questions please call [phone] For issues on weeknights after 5pm and weekends please call [phone] and ask for the Vascular Fellow inventory control assistant. documented in this encounter Discharge Instructions [...] 2 tablespoons of dried fruit. Milk and il-kmwnc-gynsc yogurt have 15 grams of carbs in a serving. A serving is 1 cup of milk or 3/4 cup (6 oz) of jj-qhgod-pqubk yogurt. Starchy vegetables have 15 grams of carbs in a serving. A serving is ?? cup of mashed potatoes or sweet potato; 1 cup winter squash; ?? of a small baked potato; ?? cup of cooked beans; or ?? cup cooked corn or green peas. Learn how much carbs to eat each day and at each meal. A dietitian or certified financial planner can teach you how to keep track [...] this completed at 3L at [facility] prior to your scheduled [...] For any problems or questions please call [phone] For issues on weeknights after 5pm and weekends please call [phone] and ask for the Vascular Fellow inventory control assistant. documented in this encounter Medications at [...] - See Instructions). FLUSH PROTOCOL WITH MEDICATIONS ([facility]): Before med infusion: flush with NS [...] - See Instructions). FLUSH PROTOCOL WITH MEDICATIONS ([facility]): Before med infusion: flush with NS [...] to contact. Reviewed roles and responsibilities of CLINICAL STAFF EDUCATOR and infusion vendor. Contact information for ID and Vascular team/clinic, CLINICAL STAFF EDUCATOR and infusion vendor given to pt. Discussed f/u appointments in ID 5C clinic, telephone and tele health. Pt verbalized understanding. All questions answered. IV & PO ABX Medications: Daptomycin 700mg IV daily Start/anticipated end date: 10/10/24-11/10/24 CLINICAL STAFF EDUCATOR: Mousie Infusion vendor: [facility] Care IV Access: 4 [...] 2 tablespoons of dried fruit. Milk and xe-tjrez-sresn yogurt have 15 grams of carbs in a serving. A serving is 1 cup of milk or 3/4 cup (6 oz) of xz-opwsy-qzcxr yogurt. Starchy vegetables have 15 grams of carbs in a serving. A serving is ?? cup of mashed potatoes or sweet potato; 1 cup winter squash; ?? of a small baked potato; ?? cup of cooked beans; or ?? cup cooked corn or green peas. Learn how much carbs to eat each day and at each meal. A dietitian or certified financial planner can teach you how to keep track [...] this time. OT to complete orders. Pager: [phone] Fabián Burrows OT 10/09/2024 Occupational Therapy Rehabilitation [...] Loss: None Karolyn Hudson MD Vascular Surgery, 8707 10/09/24 * Terry Jimenez, PT - 10/09/2024 12:02 PM EST Physical Therapy Visit #2 Patient profile: Geovanna Dixon Jr. is a 49 y.o. male with a history of HTN, HLD, NSTEMI, CAD s/p CABG (12/2011), DM,obesity, PAD s/p L iliofem endart and L fem-BK pop bypass and L 2nd toe amputation who was transferred from [facility], 09/26/24 given concern for infected left fem-BK popliteal PTFE bypass. He is now s/p an explant of an infected left femoral-below knee popliteal artery bypass graft (09/26), I/D groin abscess (09/27), L GSV harvest, vein patch angioplasty, L GANG LEADER and BK pop w/ sartorius flap L fem, I/D, 09/29 L sartorius flap revision, vac change. 10/03/24 NPO at [facility] for OR wound exploration. Wound vac off [...] He mentions he'll stay with sister and zavoxjk-kj-dsc upon DC. Pt resting in bed upon [...] up with R and down with L, llbi-ic-xzxc. Balance: Sitting: NORMAL- EOB unsupported good postural [...] Based on current findings- home (sister & tcmgnrb-jw-tat's home) Consult Recommendations: No other consults recommended [...] 15 (TE-F) minutes TERRY JIMENEZ, PT Pager: [phone] Physical Therapy Inpatient Rehabilitation Department * María [...] 2nd toe amputation who was transferred from [facility] given concern for infected left fem-BK [...] week ago. He presented [place] [facility] [place] and went [...] Daily heparin (porcine) 5,000 Units Subcutaneous Q8H [facility] lidocaine 1 patch Transdermal Q24H Operations this [...] Procedure Component Value - Date/Time Blood culture [[id number]] (Abnormal) (Susceptibility) Collected: 09/26/24 1422 Lab Status: Edited Result - FINAL Specimen: Blood, Venous Updated: 10/07/24 0740 Blood Culture Methicillin Resistant Staphylococcus aureus Comment: detected by PCR Isolate saved. If future testing is required, contact the Microbiology Sales And Marketing Assistant. Gram Stain Aerobic Bottle: Gram positive cocci in clusters Susceptibility Methicillin Resistant Staphylococcus aureus MINIMUM INHIBITORY CONCENTRATION VITEK 2 METHOD Clindamycin Resistant Daptomycin Susceptible Gentamicin Susceptible [1] Linezolid Susceptible Oxacillin Resistant Trimethoprim/Sulfa Susceptible Vancomycin Susceptible [1] Gentamicin is not appropriate for monotherapy for gram-positive infections. AFB culture [[id number]] Collected: 09/27/24 1654 Lab Status: Preliminary result Specimen: Tissue from Thigh, Left Updated: 10/05/24 1201 Acid Fast Bacilli Culture No acid fast bacilli isolated at 1 week. Acid Fast Stain No acid fast bacilli seen Blood culture [[id number]] Collected: 09/29/242123 Lab Status: Final result Specimen: Blood, Venous Updated: 10/04/24 2301 Blood Culture No growth at 120 hours Blood culture [[id number]] Collected: 09/29/242123 Lab Status: Final result Specimen: Blood, Venous Updated: 10/04/24 2301 Blood Culture No growth at 120 hours AFB culture [[id number]] Collected: 09/26/24 1702 Lab Status: Preliminary result Specimen: Abscess from Knee, Left Updated: 10/04/24 1201 Acid Fast Bacilli Culture No acid fast bacilli isolated at 1 week. Acid Fast Stain No acid fast bacilli seen Blood culture [[id number]] Collected: 09/28/24 1749 Lab Status: Final result [...] 2nd toe amputation who was transferred from [facility] given concern for infected left fem-BK popliteal PTFE bypass. He is now s/p an explantof an infected left femoral-below knee popliteal artery bypass graft (09/26), I/D groin abscess (), L GSV harvest, vein patch angioplasty, L GANG LEADER and BK pop w/ sartorius flap L fem, I/D, 09/29 L sartorius flap revision, vac change. 10/09/24: Progressing well post surgically. Will pull medial thigh drain today, retain sartorius flap drain along with wound vac x 3 sponges ([facility] has approved for home vac) and WTD [...] dressing change completed as per [facility] protocol. Positive pressure displacement [...] 2nd toe amputation who was transferred from [facility] given concern for infected left fem-BK [...] week ago. He presented to [facility] [place] and went [...] Procedure Component Value - Date/Time Blood culture [[id number]] (Abnormal) (Susceptibility) Collected: 09/26/24 1422 Lab Status: Edited Result - FINAL Specimen: Blood, Venous Updated: 10/07/24 0740 Blood Culture Methicillin Resistant Staphylococcus aureus Comment: detected by PCR Isolate saved. If future testing is required, contact the Microbiology Sales And Marketing Assistant. Gram Stain Aerobic Bottle: Gram positive cocci in clusters Susceptibility Methicillin Resistant Staphylococcus aureus MINIMUM INHIBITORY CONCENTRATION VITEK 2 METHOD Clindamycin Resistant Daptomycin Susceptible Gentamicin Susceptible [1] Linezolid Susceptible Oxacillin Resistant Trimethoprim/Sulfa Susceptible Vancomycin Susceptible [1] Gentamicin is not appropriate for monotherapy for gram-positive infections. AFB culture [[id number]] Collected: 09/27/24 165 Lab Status: Preliminary result Specimen: Tissue from Thigh, Left Updated: 10/05/24 1201 Acid Fast Bacilli Culture No acid fast bacilli isolated at 1 week. Acid Fast Stain No acid fast bacilli seen Blood culture [[id number]] Collected: 09/29/242123 Lab Status: Final result Specimen: Blood, Venous Updated: 10/04/24 2301 Blood Culture No growth at 120 hours Blood culture [[id number]] Collected: 09/29/242123 Lab Status: Final result Specimen: Blood, Venous Updated: 10/04/24 2301 Blood Culture No growth at 120 hours AFB culture [[id number]] Collected: 09/26/24 1702 Lab Status: Preliminary result Specimen: Abscess from Knee, Left Updated: 10/04/24 1201 Acid Fast Bacilli Culture No acid fast bacilli isolated at 1 week. Acid Fast Stain No acid fast bacilli seen Blood culture [[id number]] Collected: 09/28/24 1749 Lab Status: Final result Specimen: Blood, Venous Updated: 10/03/24 1901 Blood Culture No growth at 120 hours Blood culture [[id number]] (Abnormal) Collected: 09/27/24 2133 Lab Status: Final result Specimen: Blood, Venous Updated: 10/02/24 0804 Blood Culture Methicillin Resistant Staphylococcus aureus Comment: Susceptibilities previously reported. Gram Stain Aerobic Bottle: Gram positive cocci in clusters Tissue Culture, Aerobic & Anaerobic [[id number]] Collected: 09/27/241653 Lab Status: Final result Specimen: Tissue from Thigh, Left Updated: 10/01/24 1554 Narrative: The following orders were created for panel order Tissue Culture, Aerobic & Anaerobic. Procedure Abnormality Status --------- ------ Tissue Culture, Aerobic ...[[id number]] Anaerobic Culture[[id number]] Final result Please view results for these tests on the individual orders. Anaerobic Culture [[id number]] Collected: 09/27/241653 Lab Status: Final result Specimen: Tissue from Thigh, Left Updated: 10/01/24 1554 Anaerobic Culture No anaerobic organisms isolated Tissue Culture, Aerobic Only [[id number]] (Abnormal) (Susceptibility) Collected: 09/27/241653 Lab Status: Final [...] 2nd toe amputation who was transferred from [facility] given concern for infected left fem-BK popliteal PTFE bypass. He is now s/p an explantof an infected left femoral-below knee popliteal artery bypass graft (09/26), I/D groin abscess (), L GSV harvest, vein patch angioplasty, L GANG LEADER and BK pop w/ sartorius flap L [...] 81mg daily Vibha Benson APRN 10/08/2024 Pager: [phone] * Vibha Benson APRN - 10/07/2024 8:52 AM EST Images from the original note were not included. Vascular Surgery Progress Note Geovanna Dixon Jr. is a 49 y.o. male with history of HTN, HLD, NSTEMI, CAD s/p CABG (12/2011), DM, obesity, PAD s/p L iliofem endart and L fem-BK pop bypass and L 2nd toe amputation who was transferred from [facility] given concern for infected left fem-BK [...] week ago. He presented [place] [facility] [place] and went [...] Procedure Component Value - Date/Time Blood culture [[id number]] (Abnormal) (Susceptibility) Collected: 09/26/24 1422 Lab Status: Edited Result - FINAL Specimen: Blood, Venous Updated: 10/07/24 0740 Blood Culture Methicillin Resistant Staphylococcus aureus Comment: detected by PCR Isolate saved. If future testing is required, contact the Microbiology Sales And Marketing Assistant. Gram Stain Aerobic Bottle: Gram positive cocci in clusters Susceptibility Methicillin Resistant Staphylococcus aureus MINIMUM INHIBITORY CONCENTRATION VITEK 2 METHOD Clindamycin Resistant Daptomycin Susceptible Gentamicin Susceptible [1] Linezolid Susceptible Oxacillin Resistant Trimethoprim/Sulfa Susceptible Vancomycin Susceptible [1] Gentamicin is not appropriate for monotherapy for gram-positive infections. AFB culture [[id number]] Collected: 09/27/24 1654 Lab Status: Preliminary result Specimen: Tissue from Thigh, Left Updated: 10/05/24 1201 Acid Fast Bacilli Culture No acid fast bacilli isolated at 1 week. Acid Fast Stain No acid fast bacilli seen Blood culture [[id number]] Collected: 09/29/242123 Lab Status: Final result Specimen: Blood, Venous Updated: 10/04/24 2301 Blood Culture No growth at 120 hours Blood culture [[id number]] Collected: 09/29/242123 Lab Status: Final result Specimen: Blood, Venous Updated: 10/04/24 2301 Blood Culture No growth at 120 hours AFB culture [[id number]] Collected: 09/26/24 1702 Lab Status: Preliminary result Specimen: Abscess from Knee, Left Updated: 10/04/24 1201 Acid Fast Bacilli Culture No acid fast bacilli isolated at 1 week. Acid Fast Stain No acid fast bacilli seen Blood culture [[id number]] Collected: 09/28/24 1749 Lab Status: Final result Specimen: Blood, Venous Updated: 10/03/24 1901 Blood Culture No growth at 120 hours Blood culture [[id number]] (Abnormal) Collected: 09/27/24 2133 Lab Status: Final result Specimen: Blood, Venous Updated: 10/02/24 0804 Blood Culture Methicillin Resistant Staphylococcus aureus Comment: Susceptibilities previously reported. Gram Stain Aerobic Bottle: Gram positive cocci in clusters Tissue Culture, Aerobic & Anaerobic [[id number]] Collected: 09/27/24 165 Lab Status: Final result Specimen: Tissue from Thigh, Left Updated: 10/01/24 1554 Narrative: The following orders were created for panel order Tissue Culture, Aerobic & Anaerobic. Procedure Abnormality Status --------- ------ Tissue Culture, Aerobic ...[[id number]] Anaerobic Culture[[id number]] Final result Please view results for these tests on the individual orders. Anaerobic Culture [[id number]] Collected: 09/27/24 165 Lab Status: Final result Specimen: Tissue from Thigh, Left Updated: 10/01/24 1554 Anaerobic Culture No anaerobic organisms isolated Tissue Culture, Aerobic Only [[id number]] (Abnormal) (Susceptibility) Collected: 09/27/24 165 Lab Status: [...] is considered susceptible to doxycycline. Blood culture [[id number]] (Abnormal) Collected: 09/26/24 1845 Lab Status: Final result Specimen: Blood, Venous Updated: 10/01/24 0658 Blood Culture Methicillin Resistant Staphylococcus aureus Comment: isolated. Susceptibilities previously reported. Gram Stain Aerobic Bottle: Gram positive cocci in clusters Abscess/Wound Aspirate Culture, Aerobic & Anaerobic [[id number]] (Abnormal) Collected: 09/26/241649 Lab Status: Final result Specimen: Abscess from Groin, Left Updated: 09/30/24 155 Narrative: The following orders were created for panel order Abscess/Wound Aspirate Culture, Aerobic & Anaerobic. Procedure Abnormality Status --------- ------ Abscess/Wound Aspirate C...[[id number]] Abnormal Final result Anaerobic Culture[[id number]] Final result Please view results for these tests on the individual orders. Anaerobic Culture [[id number]] Collected: 09/26/24 165 Lab Status: Final result Specimen: Abscess from Groin, Left Updated: 09/30/24 1551 Anaerobic Culture No anaerobic organisms isolated Abscess/Wound Aspirate Culture, Aerobic & Anaerobic [[id number]] (Abnormal) Collected: 09/26/24 1702 Lab Status: Final result Specimen: Abscess from Knee, Left Updated: 09/30/24 1551 Narrative: The following orders were created for panel order Abscess/Wound Aspirate Culture, Aerobic & Anaerobic. Procedure Abnormality Status --------- ------ Abscess/Wound Aspirate C...[[id number]] Abnormal Final result Anaerobic Culture[[id number]] Final result Please view results for these tests on the individual orders. Anaerobic Culture [[id number]] Collected: 09/26/24 1702 Lab Status: Final result Specimen: Abscess from Knee, Left Updated: 09/30/24 1551 Anaerobic Culture No anaerobic organisms isolated Sonicated Tissue/Implant Culture [[id number]] (Abnormal) Collected: 09/26/24 1716 Lab Status: Final result Specimen: Vascular Graft from Leg, Left Updated: 09/30/24 1349 Sonicated Tissue/Implant Culture Methicillin Resistant Staphylococcus aureus Comment: isolated from broth culture. Susceptibilities previously reported. Abscess/Wound Aspirate Culture, Aerobic Only [[id number]] (Abnormal) (Susceptibility) Collected: 09/26/24 1702 Lab Status: [...] to doxycycline. Abscess/Wound Aspirate Culture, Aerobic Only [[id number]] (Abnormal) (Susceptibility) Collected: 09/26/24 1650 Lab Status: [...] 2nd toe amputation who was transferred from [facility] given concern for infected left fem-BK popliteal PTFE bypass. He is now s/p an explantof an infected left femoral-below knee popliteal artery bypass graft (09/26), I/D groin abscess (), L GSV harvest, vein patch angioplasty, L GANG LEADER and BK pop w/ sartorius flap L [...] 81mg daily Vibha Benson APRN 10/07/2024 Pager: [phone] * Karina-Jessica Mcrae, PT - 10/06/2024 3:21 PM EST 10/06/24 7471 Evaluation & Treatment Document Type contact Comment, [...] 2nd toe amputation who was transferred from [facility] given concern for infected left fem-BK [...] week ago. He [place] [facility] [place] and went [...] Procedure Component Value - Date/Time AFB culture [[id number]] Collected: 09/27/241653 Lab Status: Preliminary result Specimen: Tissue from Thigh, Left Updated: 10/05/24 1201 Acid Fast Bacilli Culture No acid fast bacilli isolated at 1 week. Acid Fast Stain No acid fast bacilli seen Blood culture [[id number]] Collected: 09/29/242123 Lab Status: Final result Specimen: Blood, Venous Updated: 10/04/24 2301 Blood Culture No growth at 120 hours Blood culture [[id number]] Collected: 09/29/242123 Lab Status: Final result Specimen: Blood, Venous Updated: 10/04/24 2301 Blood Culture No growth at 120 hours AFB culture [[id number]] Collected: 09/26/24 170 Lab Status: Preliminary result Specimen: Abscess from Knee, Left Updated: 10/04/24 1201 Acid Fast Bacilli Culture No acid fast bacilli isolated at 1 week. Acid Fast Stain No acid fast bacilli seen Blood culture [[id number]] Collected: 09/28/24 1749 Lab Status: Final result Specimen: Blood, Venous Updated: 10/03/24 1901 Blood Culture No growth at 120 hours Blood culture [[id number]] (Abnormal) Collected: 09/27/242132 Lab Status: Final result Specimen: Blood, Venous Updated: 10/02/24 0804 Blood Culture Methicillin Resistant Staphylococcus aureus Comment: Susceptibilities previously reported. Gram Stain Aerobic Bottle: Gram positive cocci in clusters Tissue Culture, Aerobic & Anaerobic [[id number]] Collected: 09/27/241653 Lab Status: Final result Specimen: Tissue from Thigh, Left Updated: 10/01/24 1554 Narrative: The following orders were created for panel order Tissue Culture, Aerobic & Anaerobic. Procedure Abnormality Status --------- ------ Tissue Culture, Aerobic ...[[id number]] Anaerobic Culture[[id number]] Final result Please view results for these tests on the individual orders. Anaerobic Culture [[id number]] Collected: 09/27/241653 Lab Status: Final result Specimen: Tissue from Thigh, Left Updated: 10/01/24 1554 Anaerobic Culture No anaerobic organisms isolated Tissue Culture, Aerobic Only [[id number]] (Abnormal) (Susceptibility) Collected: 09/27/24 1654 Lab Status: [...] is considered susceptible to doxycycline. Blood culture [[id number]] (Abnormal) (Susceptibility) Collected: 09/26/24 1422 Lab Status: Edited Specimen: Blood, Venous Updated: 10/01/24 0658 Blood Culture Methicillin Resistant Staphylococcus aureus Comment: detected by PCR Isolate saved. If future testing is required, contact the Microbiology Sales And Marketing Assistant. Gram Stain Aerobic Bottle: Gram positive cocci in clusters Susceptibility Methicillin Resistant Staphylococcus aureus VITEK 2 METHOD Clindamycin Resistant Gentamicin Susceptible [1] Linezolid Susceptible Oxacillin Resistant Trimethoprim/Sulfa Susceptible Vancomycin Susceptible [1] Gentamicin is not appropriate for monotherapy for gram-positive infections. Blood culture [[id number]] (Abnormal) Collected: 09/26/24 1845 Lab Status: Final result Specimen: Blood, Venous Updated: 10/01/24 0658 Blood Culture Methicillin Resistant Staphylococcus aureus Comment: isolated. Susceptibilities previously reported. Gram Stain Aerobic Bottle: Gram positive cocci in clusters Abscess/Wound Aspirate Culture, Aerobic & Anaerobic [[id number]] (Abnormal) Collected: 09/26/24 165 Lab Status: Final result Specimen: Abscess from Groin, Left Updated: 09/30/24 1551 Narrative: The following orders were created for panel order Abscess/Wound Aspirate Culture, Aerobic & Anaerobic. Procedure Abnormality Status --------- ------ Abscess/Wound Aspirate C...[[id number]] Abnormal Final result Anaerobic Culture[[id number]] Final result Please view results for these tests on the individual orders. Anaerobic Culture [[id number]] Collected: 09/26/24 165 Lab Status: Final result Specimen: Abscess from Groin, Left Updated: 09/30/24 1551 Anaerobic Culture No anaerobic organisms isolated Abscess/Wound Aspirate Culture, Aerobic & Anaerobic [[id number]] (Abnormal) Collected: 09/26/24 1702 Lab Status: Final result Specimen: Abscess from Knee, Left Updated: 09/30/24 1551 Narrative: The following orders were created for panel order Abscess/Wound Aspirate Culture, Aerobic & Anaerobic. Procedure Abnormality Status --------- ------ Abscess/Wound Aspirate C...[[id number]] Abnormal Final result Anaerobic Culture[[id number]] Final result Please view results for these tests on the individual orders. Anaerobic Culture [[id number]] Collected: 09/26/24 1702 Lab Status: Final result Specimen: Abscess from Knee, Left Updated: 09/30/24 1551 Anaerobic Culture No anaerobic organisms isolated Sonicated Tissue/Implant Culture [[id number]] (Abnormal) Collected: 09/26/24 1716 Lab Status: Final result Specimen: Vascular Graft from Leg, Left Updated: 09/30/24 1349 Sonicated Tissue/Implant Culture Methicillin Resistant Staphylococcus aureus Comment: isolated from broth culture. Susceptibilities previously reported. Abscess/Wound Aspirate Culture, Aerobic Only [[id number]] (Abnormal) (Susceptibility) Collected: 09/26/24 170 Lab Status: [...] to doxycycline. Abscess/Wound Aspirate Culture, Aerobic Only [[id number]] (Abnormal) (Susceptibility) Collected: 09/26/24 1650 Lab Status: [...] 2nd toe amputation who was transferred from [facility] given concern for infected left fem-BK popliteal PTFE bypass. He is now s/p an explantof an infected left femoral-below knee popliteal artery bypass graft (09/26), I/D groin abscess (), L GSV harvest, vein patch angioplasty, L GANG LEADER and BK pop w/ sartorius flap L [...] 81mg daily Benjamin Iniguez MD 10/06/2024 Pager: [phone] * Benjamin Iniugez MD - 10/05/2024 7:42 AM EST Images from the original note were not included. Vascular Surgery Progress Note Geovanna Dixon Jr. is a 49 y.o. male with history of HTN, HLD, NSTEMI, CAD s/p CABG (12/2011), DM, obesity, PAD s/p L iliofem endart and L fem-BK pop bypass and L 2nd toe amputation who was transferred from [facility] given concern for infected left fem-BK [...] week ago. [place] [facility] [place] [...] BID insulin lispro 1-6 Units Subcutaneous Q4H [facility] insulin lispro 0-11 Units Subcutaneous TID WC [...] Procedure Component Value - Date/Time Blood culture [[id number]] Collected: 09/29/242123 Lab Status: Final result Specimen: Blood, Venous Updated: 10/04/24 230 Blood Culture No growth at 120 hours Blood culture [[id number]] Collected: 09/29/242123 Lab Status: Final result Specimen: Blood, Venous Updated: 10/04/24 230 Blood Culture No growth at 120 hours AFB culture [[id number]] Collected: 09/26/24 1702 Lab Status: Preliminary result Specimen: Abscess from Knee, Left Updated: 10/04/24 1201 Acid Fast Bacilli Culture No acid fast bacilli isolated at 1 week. Acid Fast Stain No acid fast bacilli seen Blood culture [[id number]] Collected: 09/28/24 1749 Lab Status: Final result Specimen: Blood, Venous Updated: 10/03/24 1901 Blood Culture No growth at 120 hours Blood culture [[id number]] (Abnormal) Collected: 09/27/242132 Lab Status: Final result Specimen: Blood, Venous Updated: 10/02/24 0804 Blood Culture Methicillin Resistant Staphylococcus aureus Comment: Susceptibilities previously reported. Gram Stain Aerobic Bottle: Gram positive cocci in clusters Tissue Culture, Aerobic & Anaerobic [[id number]] Collected: 09/27/241653 Lab Status: Final result Specimen: Tissue from Thigh, Left Updated: 10/01/24 1554 Narrative: The following orders were created for panel order Tissue Culture, Aerobic & Anaerobic. Procedure Abnormality Status --------- ------ Tissue Culture, Aerobic ...[[id number]] Anaerobic Culture[[id number]] Final result Please view results for these tests on the individual orders. Anaerobic Culture [[id number]] Collected: 09/27/241653 Lab Status: Final result Specimen: Tissue from Thigh, Left Updated: 10/01/24 1554 Anaerobic Culture No anaerobic organisms isolated Tissue Culture, Aerobic Only [[id number]] (Abnormal) (Susceptibility) Collected: 09/27/241653 Lab Status: Final [...] is considered susceptible to doxycycline. Blood culture [[id number]] (Abnormal) (Susceptibility) Collected: 09/26/24 1422 Lab Status: Final result Specimen: Blood, Venous Updated: 10/01/24 0658 Blood Culture Methicillin Resistant Staphylococcus aureus Comment: detected by PCR Isolate saved. If future testing is required, contact the Microbiology Sales And Marketing Assistant. Gram Stain Aerobic Bottle: Gram positive cocci in clusters Susceptibility Methicillin Resistant Staphylococcus aureus VITEK 2 METHOD Clindamycin Resistant Gentamicin Susceptible [1] Linezolid Susceptible Oxacillin Resistant Trimethoprim/Sulfa Susceptible Vancomycin Susceptible [1] Gentamicin is not appropriate for monotherapy for gram-positive infections. Blood culture [[id number]] (Abnormal) Collected: 09/26/24 1845 Lab Status: Final result Specimen: Blood, Venous Updated: 10/01/24 0658 Blood Culture Methicillin Resistant Staphylococcus aureus Comment: isolated. Susceptibilities previously reported. Gram Stain Aerobic Bottle: Gram positive cocci in clusters Abscess/Wound Aspirate Culture, Aerobic & Anaerobic [[id number]] (Abnormal) Collected: 09/26/24 165 Lab Status: Final result Specimen: Abscess from Groin, Left Updated: 09/30/24 1551 Narrative: The following orders were created for panel order Abscess/Wound Aspirate Culture, Aerobic & Anaerobic. Procedure Abnormality Status --------- ------ Abscess/Wound Aspirate C...[[id number]] Abnormal Final result Anaerobic Culture[[id number]] Final result Please view results for these tests on the individual orders. Anaerobic Culture [[id number]] Collected: 09/26/241649 Lab Status: Final result Specimen: Abscess from Groin, Left Updated: 09/30/24 1551 Anaerobic Culture No anaerobic organisms isolated Abscess/Wound Aspirate Culture, Aerobic & Anaerobic [[id number]] (Abnormal) Collected: 09/26/24 170 Lab Status: Final result Specimen: Abscess from Knee, Left Updated: 09/30/24 1551 Narrative: The following orders were created for panel order Abscess/Wound Aspirate Culture, Aerobic & Anaerobic. Procedure Abnormality Status --------- ------ Abscess/Wound Aspirate C...[[id number]] Abnormal Final result Anaerobic Culture[[id number]] Final result Please view results for these tests on the individual orders. Anaerobic Culture [[id number]] Collected: 09/26/24 170 Lab Status: Final result Specimen: Abscess from Knee, Left Updated: 09/30/24 1551 Anaerobic Culture No anaerobic organisms isolated Sonicated Tissue/Implant Culture [[id number]] (Abnormal) Collected: 09/26/24 1716 Lab Status: Final result Specimen: Vascular Graft from Leg, Left Updated: 09/30/24 1349 Sonicated Tissue/Implant Culture Methicillin Resistant Staphylococcus aureus Comment: isolated from broth culture. Susceptibilities previously reported. Abscess/Wound Aspirate Culture, Aerobic Only [[id number]] (Abnormal) (Susceptibility) Collected: 09/26/24 1702 Lab Status: [...] to doxycycline. Abscess/Wound Aspirate Culture, Aerobic Only [[id number]] (Abnormal) (Susceptibility) Collected: 09/26/24 165 Lab Status: [...] is considered susceptible to doxycycline. AFB culture [[id number]] Collected: 09/27/241653 Lab Status: Preliminary result Specimen: Tissue from Thigh, Left Updated: 09/29/24 1201 Acid Fast Bacilli Culture No acid fast bacilli isolated to date. Acid Fast Stain No acid fast bacilli seen Fungus culture [[id number]] Collected: 09/27/241653 Lab Status: Preliminary result Specimen: [...] 2nd toe amputation who was transferred from [facility] given concern for infected left fem-BK popliteal PTFE bypass. He is now s/p an explantof an infected left femoral-below knee popliteal artery bypass graft (09/26), I/D groin abscess (), L GSV harvest, vein patch angioplasty, L GANG LEADER and BK pop w/ sartorius flap L [...] 81mg daily Benjamin Iniguez MD 10/05/2024 Pager: [phone] Associated attestation - Hayley Torres MD - [...] male who underwent a left lower extremity pqlgqif-og-bjxjt-kneepopliteal artery bypass on August 01, 2024, and [...] concerns. Please page ID Green team (pager [phone]) with questions or concerns. Lynne Leavitt MD Fellow, Infectious Disease Pager: [phone] Epic Chat 10/02/2024 This note was created using [employer]) voice recognition software. Associated attestation - Amaya [...] Procedure Component Value - Date/Time Blood culture [[id number]] Collected: 09/29/242123 Lab Status: Final result Specimen: Blood, Venous Updated: 10/04/24 2301 Blood Culture No growth at 120 hours Blood culture [[id number]] Collected: 09/29/242123 Lab Status: Final result Specimen: Blood, Venous Updated: 10/04/24 2301 Blood Culture No growth at 120 hours AFB culture [[id number]] Collected: 09/26/24 170 Lab Status: Preliminary result Specimen: Abscess from Knee, Left Updated: 10/04/24 120 Acid Fast Bacilli Culture No acid fast bacilli isolated at 1 week. Acid Fast Stain No acid fast bacilli seen Blood culture [[id number]] Collected: 09/28/24 1749 Lab Status: Final result Specimen: Blood, Venous Updated: 10/03/24 1901 Blood Culture No growth at 120 hours Blood culture [[id number]] (Abnormal) Collected: 09/27/242132 Lab Status: Final result Specimen: Blood, Venous Updated: 10/02/24 0804 Blood Culture Methicillin Resistant Staphylococcus aureus Comment: Susceptibilities previously reported. Gram Stain Aerobic Bottle: Gram positive cocci in clusters Tissue Culture, Aerobic & Anaerobic [[id number]] Collected: 09/27/241653 Lab Status: Final result Specimen: Tissue from Thigh, Left Updated: 10/01/24 155 Narrative: The following orders were created for panel order Tissue Culture, Aerobic & Anaerobic. Procedure Abnormality Status --------- ------ Tissue Culture, Aerobic ...[[id number]] Anaerobic Culture[[id number]] Final result Please view results for these tests on the individual orders. Anaerobic Culture [[id number]] Collected: 09/27/241653 Lab Status: Final result Specimen: Tissue from Thigh, Left Updated: 10/01/24 155 Anaerobic Culture No anaerobic organisms isolated Tissue Culture, Aerobic Only [[id number]] (Abnormal) (Susceptibility) Collected: 11/20/24 1654 Lab Status: [...] is considered susceptible to doxycycline. Blood culture [[id number]] (Abnormal) (Susceptibility) Collected: 09/26/24 1422 Lab Status: Final result Specimen: Blood, Venous Updated: 10/01/24 0658 Blood Culture Methicillin Resistant Staphylococcus aureus Comment: detected by PCR Isolate saved. If future testing is required, contact the Microbiology Sales And Marketing Assistant. Gram Stain Aerobic Bottle: Gram positive cocci in clusters Susceptibility Methicillin Resistant Staphylococcus aureus VITEK 2 METHOD Clindamycin >=8.0 ug/ml Resistant Gentamicin <=0.5 ug/ml Susceptible [1] Linezolid 2.0 ug/ml Susceptible Oxacillin >=4.0 ug/ml Resistant Trimethoprim/Sulfa <=10.0 ug/ml Susceptible Vancomycin 1.0 ug/ml Susceptible [1] Gentamicin is not appropriate for monotherapy for gram-positive infections. Blood culture [[id number]] (Abnormal) Collected: 09/26/24 1845 Lab Status: Final result Specimen: Blood, Venous Updated: 10/01/24 0658 Blood Culture Methicillin Resistant Staphylococcus aureus Comment: isolated. Susceptibilities previously reported. Gram Stain Aerobic Bottle: Gram positive cocci in clusters Abscess/Wound Aspirate Culture, Aerobic & Anaerobic [[id number]] (Abnormal) Collected: 09/26/24 1650 Lab Status: Final result Specimen: Abscess from Groin, Left Updated: 09/30/24 1551 Narrative: The following orders were created for panel order Abscess/Wound Aspirate Culture, Aerobic & Anaerobic. Procedure Abnormality Status --------- ------ Abscess/Wound Aspirate C...[[id number]] Abnormal Final result Anaerobic Culture[[id number]] Final result Please view results for these tests on the individual orders. Anaerobic Culture [[id number]] Collected: 09/26/24 1650 Lab Status: Final result Specimen: Abscess from Groin, Left Updated: 09/30/24 1551 Anaerobic Culture No anaerobic organisms isolated Abscess/Wound Aspirate Culture, Aerobic & Anaerobic [[id number]] (Abnormal) Collected: 09/26/24 1702 Lab Status: Final result Specimen: Abscess from Knee, Left Updated: 09/30/24 1551 Narrative: The following orders were created for panel order Abscess/Wound Aspirate Culture, Aerobic & Anaerobic. Procedure Abnormality Status --------- ------ Abscess/Wound Aspirate C...[[id number]] Abnormal Final result Anaerobic Culture[[id number]] Final result Please view results for these tests on the individual orders. Anaerobic Culture [[id number]] Collected: 09/26/24 170 Lab Status: Final result Specimen: Abscess from Knee, Left Updated: 09/30/24 1551 Anaerobic Culture No anaerobic organisms isolated Sonicated Tissue/Implant Culture [[id number]] (Abnormal) Collected: 09/26/24 1716 Lab Status: Final result Specimen: Vascular Graft from Leg, Left Updated: 09/30/24 1349 Sonicated Tissue/Implant Culture Methicillin Resistant Staphylococcus aureus Comment: isolated from broth culture. Susceptibilities previously reported. Abscess/Wound Aspirate Culture, Aerobic Only [[id number]] (Abnormal) (Susceptibility) Collected: 09/26/24 170 Lab Status: [...] to doxycycline. Abscess/Wound Aspirate Culture, Aerobic Only [[id number]] (Abnormal) (Susceptibility) Collected: 09/26/241649 Lab Status: Final [...] is considered susceptible to doxycycline. AFB culture [[id number]] Collected: 09/27/241653 Lab Status: Preliminary result Specimen: Tissue from Thigh, Left Updated: 09/29/24 1201 Acid Fast Bacilli Culture No acid fast bacilli isolated to date. Acid Fast Stain No acid fast bacilli seen Fungus culture [[id number]] Collected: 09/27/241653 Lab Status: Preliminary result Specimen: [...] for consulting infectious diseases. Amaya Hernandez MD, [facility] Infectious Diseases Staff Physician * Vibha [...] of moderate Diet NPO Monitoring: Q4 Fawn Cunninhgam APRN [facility] [place]ocrin[place] Diabetes Management Pager [phone] Weekends please page [phone] minutes were spent over the course [...] 2nd toe amputation who was transferred from [facility] given concern for infected left fem-BK [...] week ago. [place] [facility] [place] and went [...] Q8H insulin lispro 1-6 Units Subcutaneous Q4H [facility] insulin lispro 0-11 Units Subcutaneous TID WC acetaminophen 975 mg Oral Q6H [facility] atorvastatin 80 mg Oral QPM aspirin EC 81 mg Oral Daily methylphenidate 20 mg Oral TID pantoprazole EC 40 mg Oral Daily senna-docusate 2 tablet Oral BID venlafaxine XR 225 mg Oral Daily heparin (porcine) 5,000 Units Subcutaneous Q8H [facility] lidocaine 1 patch Transdermal Q24H Operations this [...] Procedure Component Value - Date/Time Blood culture [[id number]] Collected: 09/29/242123 Lab Status: Preliminary result Specimen: Blood, Venous Updated: 10/03/24 230 Blood Culture No growth at 96 hours Blood culture [[id number]] Collected: 09/29/242123 Lab Status: Preliminary result Specimen: Blood, Venous Updated: 10/03/24 2301 Blood Culture No growth at 96 hours Blood culture [[id number]] Collected: 09/28/24 1749 Lab Status: Final result Specimen: Blood, Venous Updated: 10/03/24 1901 Blood Culture No growth at 120 hours Blood culture [[id number]] (Abnormal) Collected: 09/27/242132 Lab Status: Final result Specimen: Blood, Venous Updated: 10/02/24 0804 Blood Culture Methicillin Resistant Staphylococcus aureus Comment: Susceptibilities previously reported. Gram Stain Aerobic Bottle: Gram positive cocci in clusters Tissue Culture, Aerobic & Anaerobic [[id number]] Collected: 09/27/24 1654 Lab Status: Final result Specimen: Tissue from Thigh, Left Updated: 10/01/24 1554 Narrative: The following orders were created for panel order Tissue Culture, Aerobic & Anaerobic. Procedure Abnormality Status --------- ------ Tissue Culture, Aerobic ...[[id number]] Anaerobic Culture[[id number]] Final result Please view results for these tests on the individual orders. Anaerobic Culture [[id number]] Collected: 09/27/24 1654 Lab Status: Final result Specimen: Tissue from Thigh, Left Updated: 10/01/24 1554 Anaerobic Culture No anaerobic organisms isolated Tissue Culture, Aerobic Only [[id number]] (Abnormal) (Susceptibility) Collected: 09/27/24 1654 Lab Status: [...] is considered susceptible to doxycycline. Blood culture [[id number]] (Abnormal) (Susceptibility) Collected: 09/26/24 1422 Lab Status: Final result Specimen: Blood, Venous Updated: 10/01/24 0658 Blood Culture Methicillin Resistant Staphylococcus aureus Comment: detected by PCR Isolate saved. If future testing is required, contact the Microbiology Sales And Marketing Assistant. Gram Stain Aerobic Bottle: Gram positive cocci in clusters Susceptibility Methicillin Resistant Staphylococcus aureus VITEK 2 METHOD Clindamycin Resistant Gentamicin Susceptible [1] Linezolid Susceptible Oxacillin Resistant Trimethoprim/Sulfa Susceptible Vancomycin Susceptible [1] Gentamicin is not appropriate for monotherapy for gram-positive infections. Blood culture [[id number]] (Abnormal) Collected: 09/26/24 1845 Lab Status: Final result Specimen: Blood, Venous Updated: 10/01/24 0658 Blood Culture Methicillin Resistant Staphylococcus aureus Comment: isolated. Susceptibilities previously reported. Gram Stain Aerobic Bottle: Gram positive cocci in clusters Abscess/Wound Aspirate Culture, Aerobic & Anaerobic [[id number]] (Abnormal) Collected: 09/26/24 1650 Lab Status: Final result Specimen: Abscess from Groin, Left Updated: 09/30/24 1551 Narrative: The following orders were created for panel order Abscess/Wound Aspirate Culture, Aerobic & Anaerobic. Procedure Abnormality Status --------- ------ Abscess/Wound Aspirate C...[[id number]] Abnormal Final result Anaerobic Culture[[id number]] Final result Please view results for these tests on the individual orders. Anaerobic Culture [[id number]] Collected: 09/26/24 1650 Lab Status: Final result Specimen: Abscess from Groin, Left Updated: 09/30/24 1551 Anaerobic Culture No anaerobic organisms isolated Abscess/Wound Aspirate Culture, Aerobic & Anaerobic [[id number]] (Abnormal) Collected: 09/26/24 170 Lab Status: Final result Specimen: Abscess from Knee, Left Updated: 09/30/24 1551 Narrative: The following orders were created for panel order Abscess/Wound Aspirate Culture, Aerobic & Anaerobic. Procedure Abnormality Status --------- ------ Abscess/Wound Aspirate C...[[id number]] Abnormal Final result Anaerobic Culture[[id number]] Final result Please view results for these tests on the individual orders. Anaerobic Culture [[id number]] Collected: 09/26/24 1702 Lab Status: Final result Specimen: Abscess from Knee, Left Updated: 09/30/24 1551 Anaerobic Culture No anaerobic organisms isolated Sonicated Tissue/Implant Culture [[id number]] (Abnormal) Collected: 09/26/24 1716 Lab Status: Final result Specimen: Vascular Graft from Leg, Left Updated: 09/30/24 1349 Sonicated Tissue/Implant Culture Methicillin Resistant Staphylococcus aureus Comment: isolated from broth culture. Susceptibilities previously reported. Abscess/Wound Aspirate Culture, Aerobic Only [[id number]] (Abnormal) (Susceptibility) Collected: 09/26/24 1702 Lab Status: [...] to doxycycline. Abscess/Wound Aspirate Culture, Aerobic Only [[id number]] (Abnormal) (Susceptibility) Collected: 09/26/24 1650 Lab Status: [...] is considered susceptible to doxycycline. AFB culture [[id number]] Collected: 09/27/24 165 Lab Status: Preliminary result Specimen: Tissue from Thigh, Left Updated: 09/29/24 1201 Acid Fast Bacilli Culture No acid fast bacilli isolated to date. Acid Fast Stain No acid fast bacilli seen AFB culture [[id number]] Collected: 09/26/24 1702 Lab Status: Preliminary result Specimen: Abscess from Knee, Left Updated: 09/29/24 1201 Acid Fast Bacilli Culture No acid fast bacilli isolated to date. Acid Fast Stain No acid fast bacilli seen Fungus culture [[id number]] Collected: 09/27/24 165 Lab Status: Preliminary result Specimen: Tissue from Thigh, Left Updated: 09/28/24 0748 Fungus Culture No fungus isolated to date MRSA PCR Screen [[id number]] (Abnormal) Collected: 09/27/24 0751 Lab Status: Final result Specimen: Swab from Nares Updated: 09/27/24 1156 MRSA PCR Detected Narrative: This test was performed using the Xpert MRSA NxG test kit and is run on the [employer] GeneXpert Dx System. This test is cleared by the [place] Food and Drug Administration for clinical use and its performance characteristics have been verified by the [facility] at [facility]. New Studies: - None Assessment & Plan: Geovanna Dixon Jr. is a 49 y.o. male with a history of HTN, HLD, NSTEMI, CAD s/p CABG (12/2011), DM,obesity, PAD s/p L iliofem endart and L fem-BK pop bypass and L 2nd toe amputation who was transferred from [facility] given concern for infected left fem-BK popliteal PTFE bypass. He is now s/p an explantof an infected left femoral-below knee popliteal artery bypass graft (09/26), I/D groin abscess (), L GSV harvest, vein patch angioplasty, L GANG LEADER and BK pop w/ sartorius flap L [...] 81mg daily Benjamin Iniguez MD 10/04/2024 Pager: [phone] Associated attestation - Hayley Torres MD - [...] [X] N/A CPG GOAL OUTCOME EVALUATION: * Lidna Bates - 10/03/2024 3:08 PM EST Nutrition Services Note - Low Nutrition Acuity Geovanna Dixon Jr. is a 49 y.o. male Reason for intervention: follow up Nutrition Plan: Continue Diet Plan Encourage good PO Insulin, mag-ox, magnesium sulfate, Klor ConM noted Monitor Weight Geovanna Dixon Jr. was scheduled for a f/u nutrition evaluation. Vice President Of Product Marketing met pt at bedside. Pt sharedthat his [...] nausea and no vomiting Last Bowel Movement: (FORENSIC PSYCHIATRIST- MD made aware) Patient education / questions: all nutrition related questions answered at this time Nutrition services to follow weekly through hospital course unless consulted in the interim. Linda Bates Bicycle Assembler * Jessica Renae, PT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 Laboratory at [facility]. Fungus culture [[id number]] Collected: 09/26/24 165 Lab Status: Preliminary result Specimen: Abscess from Groin, Left Updated: 09/27/24 0727 Fungus Culture No fungus isolated to date Fungus culture [[id number]] Collected: 09/26/24 1702 Lab Status: Preliminary result [...] 2nd toe amputation who was transferred from [facility] given concern for infected left fem-BK popliteal PTFE bypass. He is now s/p an explantof an infected left femoral-below knee popliteal artery bypass graft (09/26), I/D groin abscess (), L GSV harvest, vein patch angioplasty, L GANG LEADER and BK pop w/ sartorius flap L [...] ASA 81 María Carranza, RESHMA 10/01/2024 Pager: [phone] * Karolyn Hudson MD - 09/30/2024 11:21 AM EST Images from the original note were not included. Vascular Surgery Progress Note Patient ID Geovanna Dixon Jr. is a 49 y.o. male with history of HTN, HLD, NSTEMI, CAD s/p CABG (12/2011), DM, obesity, PAD s/p L iliofem endart and L fem-BK pop bypass and L 2nd toe amputation who was transferred from [facility] given concern for infected left fem-BK [...] week ago. [place] [facility] [place] and went [...] Procedure Component Value - Date/Time Blood culture [[id number]] (Abnormal) Collected: 09/27/24 2133 Lab Status: Preliminary result Specimen: Blood, Venous Updated: 09/30/24 0718 Blood Culture Methicillin Resistant Staphylococcus aureus Comment: Susceptibilities previously reported. Gram Stain Aerobic Bottle: Gram positive cocci in clusters Blood culture [[id number]] Collected: 09/28/24 1749 Lab Status: Preliminary result Specimen: Blood, Venous Updated: 09/29/24 1901 Blood Culture No Growth at 18-24 hrs. AFB culture [[id number]] Collected: 09/27/24 1654 Lab Status: Preliminary result Specimen: Tissue from Thigh, Left Updated: 09/29/24 1201 Acid Fast Bacilli Culture No acid fast bacilli isolated to date. Acid Fast Stain No acid fast bacilli seen AFB culture [[id number]] Collected: 09/26/24 1702 Lab Status: Preliminary result Specimen: Abscess from Knee, Left Updated: 09/29/24 1201 Acid Fast Bacilli Culture No acid fast bacilli isolated to date. Acid Fast Stain No acid fast bacilli seen Sonicated Tissue/Implant Culture [[id number]] (Abnormal) Collected: 09/26/24 1716 Lab Status: Preliminary result Specimen: Vascular Graft from Leg, Left Updated: 09/29/24 1132 Sonicated Tissue/Implant Culture Methicillin Resistant Staphylococcus aureus Comment: isolated from broth culture. Susceptibilities previously reported. Tissue Culture, Aerobic Only [[id number]] (Abnormal) (Susceptibility) Collected: 09/27/24 1654 Lab Status: [...] is considered susceptible to doxycycline. Blood culture [[id number]] (Abnormal) Collected: 09/26/24 1845 Lab Status: Preliminary result Specimen: Blood, Venous Updated: 09/29/24 0719 Blood Culture Methicillin Resistant Staphylococcus aureus Comment: isolated. Susceptibilities previously reported. Gram Stain Aerobic Bottle: Gram positive cocci in clusters Blood culture [[id number]] (Abnormal) (Susceptibility) Collected: 09/26/24 1422 Lab Status: Preliminary result Specimen: Blood, Venous Updated: 09/29/24 0717 Blood Culture Methicillin Resistant Staphylococcus aureus Comment: detected by PCR Isolate saved. If future testing is required, contact the Microbiology Sales And Marketing Assistant. Gram Stain Aerobic Bottle: Gram positive cocci in clusters Susceptibility Methicillin Resistant Staphylococcus aureus VITEK 2 METHOD Clindamycin Resistant Gentamicin Susceptible [1] Linezolid Susceptible Oxacillin Resistant Trimethoprim/Sulfa Susceptible Vancomycin Susceptible [1] Gentamicin is not appropriate for monotherapy for gram-positive infections. Anaerobic Culture [[id number]] Collected: 09/27/24 1654 Lab Status: Preliminary result Specimen: Tissue from Thigh, Left Updated: 09/28/24 1355 Anaerobic Culture No anaerobic organisms isolated to date Abscess/Wound Aspirate Culture, Aerobic Only [[id number]] (Abnormal) (Susceptibility) Collected: 09/26/24 1702 Lab Status: [...] to doxycycline. Abscess/Wound Aspirate Culture, Aerobic Only [[id number]] (Abnormal) (Susceptibility) Collected: 09/26/241649 Lab Status: Preliminary [...] is considered susceptible to doxycycline. Fungus culture [[id number]] Collected: 09/27/241653 Lab Status: Preliminary result Specimen: Tissue from Thigh, Left Updated: 09/28/24 0748 Fungus Culture No fungus isolated to date MRSA PCR Screen [[id number]] (Abnormal) Collected: 09/27/24 0751 Lab Status: Final result Specimen: Swab from Nares Updated: 09/27/24 1156 MRSA PCR Detected Narrative: This test was performed using the Xpert MRSA NxG test kit and is run on the [employer] GeneXpert Dx System. This test is cleared by the U.S. Food and Drug Administration for clinical use and its performance characteristics have been verified by the Clinical Genomics and [facility] Technology Laboratory at [facility]. Anaerobic Culture [[id number]] Collected: 09/26/241649 Lab Status: Preliminary result Specimen: Abscess from Groin, Left Updated: 09/27/24 1142 Anaerobic Culture No anaerobic organisms isolated to date Anaerobic Culture [[id number]] Collected: 09/26/24 1702 Lab Status: Preliminary result Specimen: Abscess from Knee, Left Updated: 09/27/24 1142 Anaerobic Culture No anaerobic organisms isolated to date Fungus culture [[id number]] Collected: 09/26/241649 Lab Status: Preliminary result Specimen: Abscess from Groin, Left Updated: 09/27/24 0727 Fungus Culture No fungus isolated to date Fungus culture [[id number]] Collected: 09/26/24 1702 Lab Status: Preliminary result Specimen: Abscess from Knee, Left Updated: 09/27/24 07 Fungus Culture No fungus isolated to date New Studies Results for orders placed or performed during the hospital encounter of 09/26/24 Request For 2nd Read CT Lower Extremity (Exam End: 09/26/2024 1:50 PM) Result Value WORKSTATION ID [id number] Impression 1. There is a left femoral [...] questions please contact the health patient care technician that requested your imaging first. Electronically signed by: Lisette Bruno MD, [facility] ([phone]), at 09/26/2024 3:[address] Lower Extremity w Contrast Left (Exam End: 09/27/2024 9:16 AM) Result Value WORKSTATION ID [id number] Impression IMPRESSION: 1. Interval explant of LEFT [...] questions please contact the health patient care technician that requested your imaging first. 09/28 [...] 2nd toe amputation who was transferred from [facility] given concern for infected left fem-BK [...] at proximal and distal anastomoses and a Otley drain placed from left groin to left thigh. The retained grafts have since been removed, with Otley drains in the L groin and thigh [...] Labs 09/28/24 1516 PHART 7.42 PO2ART 103 [id number] 39 LACTATEART 1.1 BEART 0.2 Is this [...] 1643 PHART 7.42 7.38 PO2ART 103 96 [id number] 39 41 LACTATEART 1.1 1.7 BEART 0.2 [...] Thank you, Renea Nunez, MS, RD, LD, [facility] Clinical Nutrition * Mariya Shi RN [...] Monitoring: Q4 Fawn Cunningham APRN [facility] Endocrinology Diabetes Management Pager [phone] Weekends please page [phone] minutes were spent over the course [...] Labs 09/26/24 1643 PHART 7.38 PO2ART 96 [id number] 41 LACTATEART 1.7 BEART -1.4 Is this [...] 2nd toe amputation who was transferred from [facility] given concern for infected left fem-BK [...] week ago. He [place] [facility] [place] and went [...] Procedure Component Value - Date/Time Fungus culture [[id number]] Collected: 09/27/24 1654 Lab Status: Preliminary result Specimen: Tissue from Thigh, Left Updated: 09/28/24 0748 Fungus Culture No fungus isolated to date Blood culture [[id number]] (Abnormal) Collected: 09/26/24 1845 Lab Status: Preliminary result Specimen: Blood, Venous Updated: 09/28/24 0711 Blood Culture Methicillin Resistant Staphylococcus aureus Comment: isolated. Susceptibility testing in progress. Gram Stain Aerobic Bottle: Gram positive cocci in clusters AFB culture [[id number]] Collected: 09/26/24 170 Lab Status: Preliminary result Specimen: Abscess from Knee, Left Updated: 09/27/24 2335 Acid Fast Stain No acid fast bacilli seen Tissue Culture, Aerobic Only [[id number]] Collected: 09/27/24 165 Lab Status: Preliminary result Specimen: Tissue from Thigh, Left Updated: 09/27/24 1810 Gram Stain Few Neutrophils seen No microorganisms seen Abscess/Wound Aspirate Culture, Aerobic Only [[id number]] (Abnormal) Collected: 09/26/24 170 Lab Status: Preliminary result Specimen: Abscess from Knee, Left Updated: 09/27/24 1520 Abscess/Wound Aspirate Culture Many Staphylococcus aureus Gram Stain Many neutrophils Many Gram positive cocci Abscess/Wound Aspirate Culture, Aerobic Only [[id number]] (Abnormal) Collected: 09/26/241649 Lab Status: Preliminary result Specimen: Abscess from Groin, Left Updated: 09/27/24 1519 Abscess/Wound Aspirate Culture Many Staphylococcus aureus Gram Stain Many neutrophils Many Gram positive cocci Blood culture [[id number]] (Abnormal) Collected: 09/26/24 1422 Lab Status: Preliminary result Specimen: Blood, Venous Updated: 09/27/24 1320 Blood Culture Methicillin Resistant Staphylococcus aureus Comment: detected by PCR Gram Stain Aerobic Bottle: Gram positive cocci in clusters MRSA PCR Screen [[id number]] (Abnormal) Collected: 09/27/24 0751 Lab Status: Final result Specimen: Swab from Nares Updated: 09/27/24 1156 MRSA PCR Detected Narrative: This test was performed using the Xpert MRSA NxG test kit and is run on the [employer] GeneXKoduco Dx System. This test is cleared by the U.S. Food and Drug Administration for clinical use and its performance characteristics have been verified by the Clinical Genomics and [facility] Technology [facility] at [facility]. Anaerobic Culture [[id number]] Collected: 09/26/24 165 Lab Status: Preliminary result Specimen: Abscess from Groin, Left Updated: 09/27/24 1142 Anaerobic Culture No anaerobic organisms isolated to date Anaerobic Culture [[id number]] Collected: 09/26/24 170 Lab Status: Preliminary result Specimen: Abscess from Knee, Left Updated: 09/27/24 1142 Anaerobic Culture No anaerobic organisms isolated to date Fungus culture [[id number]] Collected: 09/26/24 1650 Lab Status: Preliminary result Specimen: Abscess from Groin, Left Updated: 09/27/24726 Fungus Culture No fungus isolated to date Fungus culture [[id number]] Collected: 09/26/24 1702 Lab Status: Preliminary result Specimen: Abscess from Knee, Left Updated: 09/27/24726 Fungus Culture No fungus isolated to date New Studies Results for orders placed or performed during the hospital encounter of 09/26/24 Request For 2nd Read CT Lower Extremity (Exam End: 09/26/2024 1:50 PM) Result Value WORKSTATION ID [id number] Impression 1. There is a left femoral [...] questions please contact the health patient care technician that requested your imaging first. Electronically signed by: Lisette Bruno MD, [facility] ([phone]), at 09/26/2024 3:[address] Lower Extremity w Contrast Left (Exam End: 09/27/2024 9:16 AM) Result Value WORKSTATION ID [id number] Impression IMPRESSION: 1. Interval explant of LEFT [...] questions please contact the health patient care technician that requested your imaging first. Electronically signed by: Ignacia Chi MD, [facility] ([phone]), at 09/27/2024 10:48 AM Assessment & Plan Geovanna Dixon Jr. is a 49 y.o. male with a history of HTN, HLD, NSTEMI, CAD s/p CABG (12/2011), DM,obesity, PAD s/p L iliofem endart and L fem-BK pop bypass and L 2nd toe amputation who was transferred from [facility] given concern for infected left fem-BK [...] Superior part of dressing taken down. [address] Abd pads with serosanguinous [...] Kita Hodge - 09/27/2024 3:58 PM EST Digital Analytics Manager Encounter Note Patient Name: Geovanna Dixon Jr. : [id number] MR#: [id number] Admit Date: 09/26/2024 2:08 PM Hospital Day 1 day Narrative: Cone Runner initiated visit with patient during rounds on the unit. Patient indicated that he was not latter-day. He reported that he was in less [...] Labs 09/26/24 1643 PHART 7.38 PO2ART 96 [id number] 41 LACTATEART 1.7 BEART -1.4 Is this [...] 2nd toe amputation who was transferred from [facility] given concern for infected left fem-BK [...] week ago. He [place] [facility] [place] and went [...] 2nd toe amputation who was transferred from [facility] given concern for infected left fem-BK popliteal PTFE bypass. He is now s/p an explantof an infected left femoral-below knee popliteal artery bypass graft. Significant purulence under pr essure was seen intraoperatively, surrounding the entire bypass at proximal and distal anastomoses as well as the tunnel. There are retained grafts left at proximal and distal anastomoses, and a Otley drain placed from left groin to left [...] graft associated infection. The patient presented to [facility] ED on 09/26 for evaluation of [...] remained hemodynamically stable during his time at [facility] and was transported by ground to [facility] for vascular surgery consultation. [...] 3.51) performed by Thony Garcia MD at [facility] MAIN OR PRO BYPASS GRAFT OTHR, FEM-TIBIAL Left 08/01/2024 @BYPASS GRAFT, FEM-ANT TIBIAL, -POST TIBIAL, -PERONEAL, -DP W\ SYNTHETIC CONDUIT (WRVU 23.66) performed by Lisette Maldonado MD at [facility] MAIN OR PRO CABG, ARTERY-VEIN, SINGLE 01/04/2012 @CABG, VENOUS & ARTERIAL GRAFT;SINGLE VEIN GRAFT performed by INNA TOVAR at [facility] MAIN OR PRO ENDOSCOPY W/VIDEO-ASST VEIN HARVEST, CABG 01/04/2012 ENDOSCOPIC HARVEST VEIN(S) FOR CABG performed by INNA TOVAR at [facility] MAIN OR VS ARTERIOGRAM LOWER EXTREMITY VASCULAR SURGERY 07/20/2024 VS Arteriogram Lower Extremity Vascular Surgery 07/20/2024 Anabel Finney MD [facility] INTERVENTIONL RAD Prior To Admission Medications: [...] 3 times daily. Use as instructed Indications: [id number] each 1 Past Week FreeStyle Lancets 28 [...] mellitus, whatver the most affordable version is forThinkature insurance 15 mL 1 Past Week insulin [...] 393 mg/dL Type and screen ([facility]/BABITA) Result Value Ref Range ABORH Type A POSITIVE PATIENT HISTORY Found Expires at 2359 on: 09/29/2024 ANTIBODY SCREEN AUTOMATED Negative T&S only valid at [facility] [place] CBC (with Diff) [...] 09/26/2024 1:50 PM) Result Value WORKSTATION ID [id number] Impression 1. There is a left femoral [...] questions please contact the health patient care technician that requested your imaging first. Electronically signed by: Lisette Bruno MD, [facility] ([phone]), at 09/26/2024 3:01 PM Assessment/Plan: Geovanna Dixon [...] to the planned procedure. Hand Hygiene: The distribution collection operator did perform hand hygiene prior to line insertion. Catheter type: PICC Lot number: [id number] Procedure Technique: Skin was prepped with chlorhexidine. [...] to the planned procedure. Hand Hygiene: The distribution collection operator did perform hand hygiene prior to line insertion. Catheter type: PICC Lot number: [id number] Procedure Technique: Skin was prepped with chlorhexidine. [...] Home Vac: I have called [facility] and they they have now delivered the home ActiVac serial # [id number]. Pt reviewed the [facility] ActiVac Proof of Delivery/Assignment of Benefits (POD/AOB)form and signed it; she has copy of this and the [facility] Patient Copy letter along with the supplies, I will fax copy of the POD/AOB to [facility]. Needs for Transition of Care: Plan for discharge is: Home w/ Services Outpatient Agency/Support Group Needs: Homecare agency Outpatient IV Medications - IV Access: Access Ordered Location: Home, Referred to [facility] Coordination, Referred to [facility] Health Services: Occupational Therapy, Physical Therapy, Registered Nurse Agency Referrals & Follow-up Care: Contact information [place] [facility] [place] [phone] [facility] [address] Transportation: family or friend will provide Functional status prior to admission: Independent Home Environment: Others in the home: sibling(s), other (see comments) (lives with his sister delmy and brother in law). Current Living Arrangements: home/apartment/condo. Accessibility Concerns: . Current Functional Ability: Assistive Person and Equipment DME used at home: none Other DME Needs: Wound Vac Provider: [facility] Patient is insured through: Primary Insurance: [employer]ARE Payor: [employer] MEDICARE / Plan: [employer] MEDICARE PPO / Product Type: *No [...] Pain Flowsheets Taken 10/09/20242022 Pain Management Interventions: raxouw-xrd-cxenb dosing utilized care clustered diversional activity provided [...] from the original note were not included. [facility] [place] [address] [facility] Vascular Access Service Peripherally Inserted Central Catheter (PICC) Teaching Sheet Peripherally inserted central catheters (irhc-lz-baar) (PICC) are used when you need IV [...] midline catheter? PICC lines are used for retirement treatments. PICC lines may be used for [...] can be set up via the nurse Brothel Keeper to help you. What are possible complications [...] Efficacy, Safety, Use, and Administration of Cathflo, [employer] 2005 * Care Management - Cristina [...] Access: Access Ordered Location: Home, Referred to [facility] Coordination Home Health Services: Occupational Therapy, Physical Therapy, Registered Nurse- will remove PT, OT Agency Referrals: [facility] and [facility] for IV [...] 9:00 AM EST OFFICE OF CARE MANAGEMENT Brothel Keeper Follow-up Note Cristina Turner RN reviewed record [...] medically ready. Current Referral in place: VNA: [facility] Wound vac ordered in [employer] System for home wound vac and order emailed to: María for signature. Brothel Keeper to follow with team and family to [...] where referrals are placed. Request referral to [place], [place] for IV abx or . Expected date of discharge: 10/11. Patient will require teaching. Referral routed to the Custodial Manager for matching with agency/vendor and to [...] care clustered diversional activity provided position adjusted ziixzx-csm-mapfx dosing utilized pain management plan reviewed with [...] have. Alternately, during off-hours you may call [phone] to contact a pharmacist. * Plan of Care - Jordyn Navas RN - 10/07/2024 7:21 PM EST OUTCOME EVALUATION NOTE: OUTCOME SUMMARY: [facility], Meds/Assessments as charted, Frequent [...] PM EST PICC line placed today for retirement ABX. Neurovascular checks unchanged. Good oral intake [...] from the [place] [address] [facility] Vascular Access Service Peripherally Inserted Central Catheter (PICC) Teaching Sheet Peripherally inserted central catheters (wqeu-lg-hfvt) (PICC) are used when you need IV [...] can be set up via the nurse Brothel Keeper to help you. What are possible complications [...] Vascular Access Device Selection, Insertion, and Management, [employer] Access Systems 08/12. A Review of the Efficacy, Safety, Use, and Administration of Cathflo, [employer] 2005 * Care Management - Vibha [...] No Patient is insured through: Primary Insurance: [employer]ED MEDICARE Payor: [employer]ED MEDICARE / Plan: [employer] MEDICARE PPO / Product Type: *No [...] of Discharge: 10/10/2024 Vibha Wahl RN-BSN-CM Pager: [phone] * Consult Note - Stormy Muller [facility] - 10/06/2024 9:19 AM EST [facility] Pharmacokinetics Note Drug: Vancomycin Pharmacokinetic target: [...] Analysis of the most recent level(s) using [employer] gives the following patient-specific pharmacokinetic parameters: CL: [...] in a steady-state trough of 14.6 mg/L [id number] of 508 mg/L.hr. Recommendations: - SCr has [...] - 10/04/2024 5:01 PM EST [facility] Operative Note Patient Name: Geovanna Dixon Jr. : [id number] MR#: [id number] Case Date: 10/04/2024 Surgeon: Surgeons and Role: * Marko Dickson MD - Primary * Cristino Meeks MD - Resident - Assisting Preoperative diagnosis: Status post explant of infected left GANG LEADER-BK pop bypass graft Postoperative diagnosis: Status post explant of infected left GANG LEADER-BK pop bypass graft Procedure(s) (LRB): DEBRIDEMENT SKIN [...] 2nd toe amputation who was transferred from [facility] given concern for infected left fem-BK popliteal PTFE bypass. He is now s/p an explant of an infected left femoral-below knee popliteal artery bypass graft on 09/26 followed by I/D posterior thigh abscess on 09/27 then left GSV harvest, total explant of remaining PTFE then vein patch angioplasty of the left GANG LEADER and BK popliteal artery on 09/28 then [...] Note Patient Name: Geovanna Dixon Jr. : [id number] MR#: [id number] Case Date: 10/04/2024 Surgeon: Surgeons and Role: * Marko Dickson MD - Primary * Cristino Meeks MD - Resident - Assisting Preoperative diagnosis: Status post explant of infected left GANG LEADER-BK pop bypass graft Postoperative diagnosis: Status post explant of infected left GANG LEADER-BK pop bypass graft Procedure(s) (LRB): DEBRIDEMENT SKIN [...] No Patient is insured through: Primary Insurance: [employer] MANAGED MEDICARE Payor: F[employer] MANAGED MEDICARE / Plan: [employer] MANAGED MEDICARE PPO / Product Type: *No [...] BIT to reengage please page BIT @ [phone] * Consult Note - Vangie Chandra [facility] - 10/04/2024 10:42 AM EST [facility] Pharmacokinetics Note Drug: Vancomycin Pharmacokinetic target: AUC24 (range) 400-600 mg/L.hr Current regimen: 1500 mg IV every 8 hours Geovanna Dixon is a(n) 49 years old male receiving Vancomycin 1500 mg IV every 8 hours for graft infection Recent measured serum creatinine values: 10/04/2024 00:08 0.56 mg/dL 10/03/2024 00:27 0.51 mg/dL 10/02/2024 00:41 0.49 mg/dL Assessment: Analysis of the most recent level(s) using [employer] gives the following patient-specific pharmacokinetic parameters: CL: [...] L 2nd toe amputationwho was transferred from [facility] given concern for infected left fem-BK popliteal PTFE bypass. He is now s/p an explant of an infected left femoral-below knee popliteal artery bypass graft (09/26), I/D groin abscess (09/27), L GSV harvest, vein patch angioplasty, L GANG LEADER and BK pop w/ sartorius flap L fem, I/D, 09/29 L sartorius flap revision, vac change. 10/03/24 NPO at [facility] for OR wound exploration. Wound vac off [...] 3.51) performed by Thony Garcia MD at [facility] MAIN OR PRO BYPASS GRAFT OTHR, FEM-TIBIAL Left 08/01/2024 @BYPASS GRAFT, FEM-ANT TIBIAL, -POST TIBIAL, -PERONEAL, -DP W\ SYNTHETIC CONDUIT (WRVU 23.66) performed by Lisette Maldonado MD at [facility] MAIN OR PRO CABG, ARTERY-VEIN, SINGLE 01/04/2012 @CABG, VENOUS & ARTERIAL GRAFT;SINGLE VEIN GRAFT performed by INNA TOVAR at [facility] MAIN OR PRO DEBRIDEMENT MUSCLE AND FASCIA 20 SQ CM/< Left 09/29/2024 DEBRIDEMENT SKIN, SUBCU, MUSCLE, LOWER EXTREMITY (WRVU 2.7) performed by Anabel Finney MD at [facility] MAIN OR PRO DEBRIDEMENT MUSCLE AND FASCIA 20 SQ CM/< Left 10/02/2024 DEBRIDEMENT SKIN, SUBCU, MUSCLE, LOWER EXTREMITY (WRVU 2.7) performed by Hermila Mccormick MDat [facility] MAIN OR PRO DEBRIDEMENT SUBCUTANEOUS TISSUE 20 SQCM/< Left 09/27/2024 DEBRIDEMENT SKIN AND SUBCU, LOWER EXTREMITY (WRVU 1.01) performed by Hayley Torres MD at [facility] MAIN OR PRO DRAIN LOWER LEG DEEP ABSC/HEMATOMA Left 09/26/2024 INCISION & DRAINAGE, LEG OR ANKLE, DEEP ABSCESS OR HEMATOMA (WRVU 5.23) performed by Hayley Torres MD at [facility] OR PRO ENDOSCOPY W/VIDEO-ASST VEIN HARVEST, CABG 01/04/2012 ENDOSCOPIC HARVEST VEIN(S) FOR CABG performed by INNA TOVAR at [facility] MAIN OR PRO EXCISION, INFEC GRAFT, EXTREMITY Left 09/26/2024 EXCISION OF INFECTED GRAFT FROM LOWER EXTREMITY (WRVU 9.53) performed by Hayley Torres MD at [facility] MAIN OR PRO EXCISION, INFEC GRAFT, EXTREMITY Left 09/28/2024 EXCISION OF INFECTED GRAFT FROM LOWER EXTREMITY (WRVU 9.53) performed by Hayley Torres MD at [facility] MAIN OR PRO EXPLORATION NOT FOLLOWED BY SURG LOWER EXTREMITY ARTERY Left 09/29/2024 @EXPLORATION W\O SURGICAL REPAIR, FEMORAL ARTERY - JENNIFER (WRVU 7.5) performed by Anabel Finney MD at [facility] MAIN OR PRO FORM SKIN PEDICLE FLAP SCALP, ARM, LEG 09/28/2024 FLAP, PEDICLE,W OR W/O TRANSFER, LEGS (WRVU 10.12) performed by Hayley Torres MD at [facility] MAIN OR PRO I&D DEEP ABSCESS BURSA/HEMATOMA THIGH/KNEE REGION Left 09/26/2024 INCISION & DRAINAGE ABSCESS OR HEMATOMA, THIGH, KNEE SUPERFICIAL (WRVU 6.78) performed by Hayley Torres MD at [facility] MAIN OR PRO REVISION FEMORAL ANAST BPG GROIN OPEN W/NONAUTOG PATCH GRAFT Left 09/28/2024 REV. FEM. ANASTOMOSIS OF SYN. BYPASS GRAFT USING NONAUTOGENOUS PATCH ANGIOPLASTY-JENNIFER (WRVU 23.15) performed by Hayley Torres MD at [facility] MAIN OR PRO UNLISTED PROCEDURE VASCULAR SURGERY Left 09/28/2024 HARVEST SAPHENOUS VEIN (WRVU 13.24) performed by Hayley Torres MD at [facility] MAIN OR VS ARTERIOGRAM LOWER EXTREMITY VASCULAR SURGERY 07/20/2024 VS Arteriogram Lower Extremity Vascular Surgery 07/20/2024 Anabel Finney MD [facility] INTERVENTIONL RAD Social History: Patient lives [...] Pt issued and educated on use of line patroller for line patroller lower items. Self-feeding: Independent Grooming: Set up [...] Discharge planning Total Minutes, Occupational Therapy: 35 ([phone]) OT Evaluation Code Rationale: Diagnosis & Pertinent Co-Morbidities affecting Plan of Care: see PMHx Occupational Profile & Client History: Brief Expanded Extensive x Assessment of Occupational Performance: 1-3 performance deficits 3-5 performance deficits x 5 + performance deficits Clinical Decision Making: Low Moderate High x Clinical decision making of low complexity using standardized patient assessment instrument and measurable assessment of functional outcome. Pager: [phone] Jorge Goetz OT 10/03/2024 Occupational Therapy Rehabilitation [...] - 10/02/2024 2:06 PM EST [facility] [place] Patient Name: Geovanna Dixon Jr. : [id number] MR#: [id number] Case Date: 10/02/2024 Surgeon: Surgeons and Role: [...] 2nd toe amputation who was transferred from [facility] given concern for infected left fem-BK [...] through: Primary Insurance: [employer] MANAGED MEDICARE Payor: N-of-One[employer] MANAGED MEDICARE / Plan: [employer] MANAGED MEDICARE PPO / Product Type: *No Product type* / Secondary Insurance: N/A Plan for discharge is: Pending Hospital Course and PT/OT Recommendations Outpatient Agency/Support Group Needs: None Home Health Services: Occupational Therapy, Physical Therapy, Registered Nurse Agency Referrals: [facility]. [address] [place] [id number] Transportation: family or friend will provide Barriers to discharge: Global: Denies needs/concerns at this time Plan: Patient is not medically ready related to: patient is going to the OR today for a washout andremains on blowout precautions. Plan going forward is: when able patient will need to work with PT/OT Anticipated Date of Discharge: 10/10/2024 Penny ROSAS, RN CM Phone: [phone] Pager: [phone] * Plan of Care - Heidi Mobley [...] * Consult Note - Katelyn Oconnor [facility] - 09/30/2024 7:43 AM EST [facility] Pharmacokinetics Note Drug: Vancomycin Pharmacokinetic target: AUC24 (range) 400-600 mg/L.hr Current regimen: 1500 mg IV every 8 hours Geovanna Dixon is a(n) 49 years old male receiving Vancomycin 1500 mg IV every 8 hours for bacteremia Recent measured serum creatinine values: 09/29/2024 23:52 0.48 mg/dL 09/28/2024 23:51 0.52 mg/dL 09/27/2024 23:58 0.48 mg/dL Assessment: Analysis of the most recent level(s) using [employer] gives the following patient-specific pharmacokinetic parameters: CL: [...] - 09/29/2024 2:41 PM EST [facility] [place] Patient Name: Geovanna Dixon Jr. : [id number] MR#: [id number] Case Date: 09/29/2024 Surgeon: Surgeons and Role: [...] 2nd toe amputation who was transferred from [facility] given concern for infected left fem-BK [...] mobilized and explored. The area around the GANG LEADER was irrigated copiously. The flap was then [...] [facility] [address] [place] [address] Transportation: family or friend will provide Barriers [...] Discharge: 10/04/2024 Penny ROSAS RN CM Phone: [phone] Pager: [phone] * Consult Note - Rose Wright APRN [...] 2nd toe amputation who was transferred from [facility] given concern for infected left fem-BK [...] week ago. [place] [facility] [place] and went [...] Procedure Component Value - Date/Time Blood culture [[id number]] (Abnormal) Collected: 09/27/242132 Lab Status: Preliminary result Specimen: Blood, Venous Updated: 09/29/24 0721 Blood Culture Methicillin Resistant Staphylococcus aureus Gram Stain Aerobic Bottle: Gram positive cocci in clusters Blood culture [[id number]] (Abnormal) Collected: 09/26/24 1845 Lab Status: Preliminary result Specimen: Blood, Venous Updated: 09/29/24 0719 Blood Culture Methicillin Resistant Staphylococcus aureus Comment: isolated. Susceptibilities previously reported. Gram Stain Aerobic Bottle: Gram positive cocci in clusters Blood culture [[id number]] (Abnormal) (Susceptibility) Collected: 09/26/24 1422 Lab Status: Preliminary result Specimen: Blood, Venous Updated: 09/29/24 0717 Blood Culture Methicillin Resistant Staphylococcus aureus Comment: detected by PCR Isolate saved. If future testing is required, contact the Microbiology Sales And Marketing Assistant. Gram Stain Aerobic Bottle: Gram positive cocci in clusters Susceptibility Methicillin Resistant Staphylococcus aureus VITEK 2 METHOD Clindamycin Resistant Gentamicin Susceptible [1] Linezolid Susceptible Oxacillin Resistant Trimethoprim/Sulfa Susceptible Vancomycin Susceptible [1] Gentamicin is not appropriate for monotherapy for gram-positive infections. AFB culture [[id number]] Collected: 09/27/24 165 Lab Status: Preliminary result Specimen: Tissue from Thigh, Left Updated: 09/28/24 2226 Acid Fast Stain No acid fast bacilli seen Anaerobic Culture [[id number]] Collected: 09/27/24 165 Lab Status: Preliminary result Specimen: Tissue from Thigh, Left Updated: 09/28/24 1355 Anaerobic Culture No anaerobic organisms isolated to date Sonicated Tissue/Implant Culture [[id number]] Collected: 09/26/24 1716 Lab Status: Preliminary result Specimen: Vascular Graft from Leg, Left Updated: 09/28/24 1323 Sonicated Tissue/Implant Culture Culture in progress Tissue Culture, Aerobic Only [[id number]] (Abnormal) Collected: 09/27/24 1654 Lab Status: Preliminary result Specimen: Tissue from Thigh, Left Updated: 09/28/24 1049 Tissue Culture Rare Staphylococcus aureus Gram Stain Few Neutrophils seen No microorganisms seen Abscess/Wound Aspirate Culture, Aerobic Only [[id number]] (Abnormal) (Susceptibility) Collected: 09/26/24 1702 Lab Status: [...] to doxycycline. Abscess/Wound Aspirate Culture, Aerobic Only [[id number]] (Abnormal) (Susceptibility) Collected: 09/26/241649 Lab Status: Preliminary [...] is considered susceptible to doxycycline. Fungus culture [[id number]] Collected: 09/27/241653 Lab Status: Preliminary result Specimen: Tissue from Thigh, Left Updated: 09/28/24 0748 Fungus Culture No fungus isolated to date AFB culture [[id number]] Collected: 09/26/241701 Lab Status: Preliminary result Specimen: Abscess from Knee, Left Updated: 09/27/24 2335 Acid Fast Stain No acid fast bacilli seen MRSA PCR Screen [[id number]] (Abnormal) Collected: 09/27/24 0751 Lab Status: Final result Specimen: Swab from Nares Updated: 09/27/24 1156 MRSA PCR Detected Narrative: This test was performed using the Xpert MRSA NxG test kit and is run on the [employer] GeneXpert Dx System. This test is cleared by the U.S. Food and Drug Administration for clinical use and its performance characteristics have been verified by the Clinical Gen[facility] at [facility]. Anaerobic Culture [[id number]] Collected: 09/26/241649 Lab Status: Preliminary result Specimen: Abscess from Groin, Left Updated: 09/27/24 1142 Anaerobic Culture No anaerobic organisms isolated to date Anaerobic Culture [[id number]] Collected: 09/26/24 170 Lab Status: Preliminary result Specimen: Abscess from Knee, Left Updated: 09/27/24 1142 Anaerobic Culture No anaerobic organisms isolated to date Fungus culture [[id number]] Collected: 09/26/24 1650 Lab Status: Preliminary result Specimen: Abscess from Groin, Left Updated: 09/27/24726 Fungus Culture No fungus isolated to date Fungus culture [[id number]] Collected: 09/26/24 1702 Lab Status: Preliminary result Specimen: Abscess from Knee, Left Updated: 09/27/24726 Fungus Culture No fungus isolated to date New Studies Results for orders placed or performed during the hospital encounter of 09/26/[address] Request [address]nd Read CT Lower Extremity (Exam End: 09/26/2024 1:50 PM) Result Value WORKSTATION ID [id number] Impression 1. There is a left femoral [...] questions please contact the health patient care technician that requested your imaging first. Electronically signed by: Lisette Bruno MD, [facility] ([phone]), at 09/26/2024 3:[address] Lower Extremity w Contrast Left (Exam End: 09/27/2024 9:16 AM) Result Value WORKSTATION ID [id number] Impression IMPRESSION: 1. Interval explant of LEFT [...] questions please contact the health patient care technician that requested your imaging first. Electronically signed by: Ignacia Chi MD, [facility] ([phone]), at 09/27/2024 10:48 AM 09/28 ABIs Interpretation: [...] 2nd toe amputation who was transferred from [facility] given concern for infected left fem-BK [...] at proximal and distal anastomoses and a Otley drain placed from left groin to left [...] - 09/28/2024 12:23 PM EST [facility] [place] Patient Name: Geovanna Dixon Jr. : [id number] MR#: [id number] Case Date: 09/28/2024 Surgeon: Surgeons and Role: [...] pericardial patch and PTFE willard over the GANG LEADER was unincorporated. - Resection of prior femoral [...] Destination 1 : Left femoral proximal graft Bleach Supervisor Leg, Left SURGICAL PATHOLOGY Hayley Torres MD 09/28/2024 1410 2 : Left distal BK pop graft Bleach Supervisor Leg, Left SURGICAL PATHOLOGY Hayley Torres MD [...] Indications: 49M with history of a left GANG LEADER-BK popliteal artery bypass with PTFE performed in [...] solution. Systemic heparin was administered. Next, the GANG LEADER, SFA, and DFA were clamped. An 11-blade scalpel was used to excise the PTFE graft willard and the prior bovine pericardial patch, and all prior Prolene sutures were removed. Residual plaque in the arterial lumen was removed using a [place] elevator. The harvested vein patch was cut [...] the midline with division of the first dry cans operator, such that the sartorius muscle was [...] prior bypass graft were irrigated below the Otley drains. Significant thrombus burden was expelled in [...] - 09/28/2024 12:23 PM EST [facility] [place] Patient Name: Geovanna Dixon Jr. : [id number] MR#: [id number] Case Date: 09/28/2024 Surgeon: Surgeons and Role: [...] - Prior bovine pericardial patch over the GANG LEADER was unincorporated. - Resection of prior femoral [...] * Consult Note - Tea Nguyen, [facility] - 09/28/2024 9:23 AM EST [...] Analysis of the most recent level(s) using [employer] gives the following patient-specific pharmacokinetic parameters: CL: [...] Note Patient Name: Geovanna Dixon Jr. : [id number] MR#: [id number] Case Date: 09/27/2024 Surgeon: Surgeons and Role: [...] - 09/27/2024 4:27 PM EST [facility] [place] Patient Name: Geovanna Dixon Jr. : [id number] MR#: [id number] Case Date: 09/26/2024 Surgeon: Surgeons and Role: [...] distal anastomoses with Prolene tag on latter. Otley drain placed from left groin to left [...] HPI/Surgical Indications: 49M with history of left GANG LEADER-BK popliteal artery bypass graft with PTFE (July [...] - 09/27/2024 4:27 PM EST [facility] [place] Patient Name: Geovanna Dixon Jr. : [id number] MR#: [id number] Case Date: 09/27/2024 Surgeon: Surgeons and Role: [...] 2nd toe amputation who was transferred from [facility] given concern for infected left fem-BK [...] week ago. 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 Glargine 25 units administered this [...] outpatient diabetes regimen: Diabetes Provider: PCP in [facility] Medications: Lantus 50 units, lispro 10 [...] return to weight based insulin dosing until Goevanna is eating. Using Weight based using 0.7 [...] Cunningham APRN Endocrinology Diabetes Management Service Pager: [phone] Weekends please page [phone] 80 minute visit was spent in counseling [...] surrogate would be surrogate decision maker per [place] surrogate decision making law. (Only good for 180 days) Any patient receiving care in [place] must abide by [place] law. The hierarchy for surrogate decision making [...] In the past 12 months has the [employer], gas, oil, or water [employer] threatened to shut off services in your [...] DME: none Home Address confirmed as: [address] [address] Social & Family Supports: All names listed [...] his home before. Health/Prescription Coverage: Primary Insurance: N-of-One[employer] MANAGED MEDICARE Payor: N-of-OneCARE MANAGED MEDICARE / Plan: [facility] PPO / Product Type: *No Product type* / Secondary Insurance: N/A ; Prescription Coverage: Yes Preferred Pharmacy: [facility] - [place], [place] - [address] [facility] [address] [facility] [address] [facility] - [place], [place] - [address] [address] [place], [place] - [address] [place] [address] [address] [facility] [address] [facility] [address] [place] Status: Patient is a : No Primary Care Provider confirmed: JUSTIN Roberson [phone] Patient/Caregiver Goals of Treatment: patient will need [...] where referrals are placed. Provided patient with [facility] Star Quality Rating handout. They have requested referrals to: [facility]. [address] [place] [phone] Expected date of discharge: TBD Referral routed to the Custodial Manager for matching with agency/vendor and to [...] care as indicated. Penny ROSAS, RN Phone: [phone] Pager: [phone] * Consult Note - Stacey Thomas MD [...] extremity aching prompting him to go to [facility]. The groin pain dissipated. About a week later on 09/26 he developed left-sided groin pain prompting him to go to [facility] once again. Lab work notable for WBC count of 21, lactic acid 3.6. He underwent evaluation with a CT scan demonstrating an abscess from the left groin operative site the entire left of the graft down by the knee. He was transferred to [facility] for further care and he was [...] 3.51) performed by Thony Garcia MD at [facility] MAIN OR PRO BYPASS GRAFT OTHR, FEM-TIBIAL Left 08/01/2024 @BYPASS GRAFT, FEM-ANT TIBIAL, -POST TIBIAL, -PERONEAL, -DP W\ SYNTHETIC CONDUIT (WRVU 23.66) performed by Lisette Maldonado MD at [facility] MAIN OR PRO CABG, ARTERY-VEIN, SINGLE 01/04/2012 @CABG, VENOUS & ARTERIAL GRAFT;SINGLE VEIN GRAFT performed by INNA TOVAR at [facility] MAIN OR PRO ENDOSCOPY W/VIDEO-ASST VEIN HARVEST, CABG 01/04/2012 ENDOSCOPIC HARVEST VEIN(S) FOR CABG performed by INNA TOVAR at [facility] MAIN OR VS ARTERIOGRAM LOWER EXTREMITY VASCULAR SURGERY 07/20/2024 VS Arteriogram Lower Extremity Vascular Surgery 07/20/2024 Anabel Finney MD [facility] INTERVENTIONL RAD Medications: potassium chloride ER [...] Continuous Infusions: lactated Ringers 100 mL/hr (09/27/24 4934) sodium chloride 0.9% PRN Meds:.potassium chloride ER [...] admitted to SICU as a transfer from [facility] for suspected graft infection/sepsis. A/Ox4, able [...] - 09/26/2024 4:50 PM EST [facility] [place] Patient Name: Geovanna Dixon Jr. : [id number] MR#: [id number] Case Date: 09/26/2024 Surgeon: Surgeons and Role: * Hayley Torres MD - Primary * Dolly Dan MD - Resident - Assisting * Ken Moeller MD - Resident - Assisting Preoperative diagnosis: left infected femoral to below knee bypass graft Postoperative diagnosis: left infected femoral to below knee bypass graft Procedure: Explant of infected LEFT GANG LEADER to below-knee popliteal artery PTFE bypass graft [...] Indications: 49M with history of a left GANG LEADER-BK popliteal artery bypass with PTFE performed in [...] 2nd toe amputation who was transferred from [facility] given concern for infected left fem-BK [...] 3.51) performed by Thony Garcia MD at [facility] MAIN OR PRO BYPASS GRAFT OTHR, FEM-TIBIAL Left 08/01/2024 @BYPASS GRAFT, FEM-ANT TIBIAL, -POST TIBIAL, -PERONEAL, -DP W\ SYNTHETIC CONDUIT (WRVU 23.66) performed by Lisette Maldonado MD at [facility] MAIN OR PRO CABG, ARTERY-VEIN, SINGLE 01/04/2012 @CABG, VENOUS & ARTERIAL GRAFT;SINGLE VEIN GRAFT performed by INNA TOVAR at [facility] MAIN OR PRO ENDOSCOPY W/VIDEO-ASST VEIN HARVEST, CABG 01/04/2012 ENDOSCOPIC HARVEST VEIN(S) FOR CABG performed by INNA TOVAR at [facility] MAIN OR VS ARTERIOGRAM LOWER EXTREMITY VASCULAR SURGERY 07/20/2024 VS Arteriogram Lower Extremity Vascular Surgery 07/20/2024 Anabel iFnney MD [facility] INTERVENTIONL RAD Social Hx: Social History [...] 3 times daily. Use as instructed Indications: [id number] each 1 [employer]Style Lancets 28 gauge Misc [...] 2nd toe amputation who was transferred from [facility] given concern for infected left fem-BK [...] PM EST Office [place] [address] Isabela Hayward APRN [facility] [place] [address] 11/10/2024 10:00 AM EST Office Visit [place] [address] Dai Whitman, RESHMA 11/21/2024 2:15 PM EST Office [place] [address] Dayanara Grover MD [facility] DR [place] [address] Pending Results Name Type Priority Associated Diagnoses [...] EST I&D Deep Abscess Bursa/Hematoma Thigh/Knee Region (66572) 09/27/2024 3:45 PM EST Infected explanted left leg bypass graft Drain Lower Leg Deep Absc/Hematoma (21731) 09/27/2024 3:45 PM EST Infected explanted left leg bypass graft Excision, Infec Graft, Extremity (43565) 09/27/2024 3:45 PM EST Infected explanted left leg bypass graft Debridement, Skin, Sub-Q Tissue (34810) 09/27/2024 3:45 PM EST Infected explanted left [...] SCREEN (MC/CGP/BABITA) STAT 09/26/2024 2:39 PM EST PHOSPHORUS STAT [...] Non-fasting (10/16/2024) Glucose Lvl - External 124(H) [facility] Blood Urea Nitrogen - External 17 [facility] Creatinine - External 0.9 [facility] EGFR - External 104.05 [facility] Anion Gap - External 11.6(H) [facility] Sodium - External 141 [facility] Potassium - External 4.3 [facility] Chloride - External 103 [facility] CO2 - External 26.4 [facility] Calcium - External 9.0 [facility] Protein, Total - External 6.9 [facility] Albumin - External 3.0(L) [facility] Total Bilirubin - External 0.20 [facility] Alk Phos - External 124(H) [facility] AST (SGOT) - External 12 [facility] ALT (SGPT) - External 22 [facility] Blood VENOUS BLOOD SPECIMEN / Unknown 10/16/2024 Amaya Hernandez MD CHEMISTRY ORDERABLES [place] [address] [facility] [address] [place] [phone] * CK (10/16/2024) CK, Total - External 39 [facility] Blood VENOUS BLOOD SPECIMEN / Unknown 10/16/2024 Amaya Hernandez MD CHEMISTRY ORDERABLES [place] [address] [facility] [address] [place], [place] [address] [phone] * (ABNORMAL) CBC (with Diff) (10/16/2024) WBC - External 10.99(H) [facility] RBC - External 3.71(L) [facility] Hemoglobin - External 10.8(L) [facility] Hematocrit - External 33.8(L) [facility] MCV - External 91 [facility] MCH - External 29.1 [facility] MCHC - External 32.0 [facility] RDWCV - External 14.2(H) [facility] Platelets - External 512(H) [facility] MPV - External 9.8 [facility] NRBC % - External 0.0 [facility] NRBC Abs - External 0.0 [facility] Neutrophils % - External 64.2 [facility] Lymphocytes % - External 25.8 [facility] Monocytes % - External 6.8 [facility] Eosinophils % - External 2.0 [facility] Basophils % - External 0.9 [facility] Immature Gran % - External 0.3 [facility] Neutr ABS (ANC) - External 7.06(H) [facility] Lymphocyte ABS - External 2.84 [facility] Monocyte ABS - External 0.75 [facility] Eosinophil ABS - External 0.22 [facility] Basophil ABS - External 0.10 [facility] Blood VENOUS BLOOD SPECIMEN / Unknown 10/16/2024 Amaya Hernandez MD HEMATOLOGY ORDERABLE S [address] [place], [place] [id number] [phone] * POC, GLUCOSE (10/10/2024 4:27 PM EST) Glucometer, POC 172 65 - 199 mg/dL 10/10/2024 4:[address] [facility] Comment:Supplemental ranges: <140 mg/dL before meals <180 mg/dL all other times of the day. Blood CAPILLARY BLOOD / Unknown 10/10/2024 4:27 PM EST 10/10/2024 4:27 PM EST Hayley Torres MD POINT OF CARE TEST O GILDA [facility] [place] [address] * POC, GLUCOSE (10/10/2024 11:10 AM EST) Glucometer, POC 174 65 - 199 mg/dL 10/10/2024 11:[address] [facility] Comment:Supplemental ranges: <140 mg/dL before meals <180 mg/dL all other times of the day. Blood CAPILLARY BLOOD / Unknown 10/10/2024 11:10 AM EST 10/10/2024 11:11 AM EST Hayley Torres MD POINT OF CARE TEST O GILDA Performing Organization Address City/[facility]/ZIP Co de Phone Number [facility] [place] [address] * POC, GLUCOSE (10/10/2024 7:46 AM EST) Glucometer, POC 141 65 - 199 mg/dL 10/10/2024 7:[address] [facility] Comment:Supplemental ranges: <140 mg/dL before meals <180 mg/dL all other times of the day. Blood CAPILLARY BLOOD / Unknown 10/10/2024 7:46 AM EST 10/10/2024 7:46 AM EST Hayley Torres MD POINT OF CARE TEST O GILDA [facility] [place] [address] * POC, GLUCOSE (10/10/2024 6:11 AM EST) Glucometer, POC 127 65 - 199 mg/dL 10/10/2024 6:[address] [facility] Comment:Supplemental ranges: <140 mg/dL before meals <180 mg/dL all other times of the day. Blood CAPILLARY BLOOD / Unknown 10/10/2024 6:11 AM EST 10/10/2024 6:11 AM EST Hayley Torres MD POINT OF CARE TEST O RDERABLES [facility] [place] [address] * CK (10/10/2024 12:33 AM EST) [facility] Creatine Kinase 32 0 - 200 unit/L 10/10/2024 8:54 AM [facility] Blood VENOUS BLOOD SPECIMEN / Unknown Venipuncture / Unknown 10/10/2024 12:33 AM EST 10/10/2024 12:43 AM EST María Carranza APRN CHEMISTRY ORDER RANDELL Performing Organization Address City/[facility]/ZIP Co de Phone Number [facility] [place] [address] * (ABNORMAL) CBC (with Diff) (10/10/2024 12:33 AM EST) [facility] White Blood Cell 11.57(H) 4.00 - 9.50 x10(3)/mc L 10/10/2024 12:48 AM [facility] Red Blood Cell 3.75(L) 4.58 - 5.54 x10(6)/mc L 10/10/2024 12:48 AM [facility] Hemoglobin 11.1(L) 13.7 - 16.5 g/dL 10/10/2024 12:48 AM [facility] Hematocrit 33.5(L) 40.5 - 48.5 % 10/10/2024 12:48 AM [facility] Mean Cell Volume 89.3 82.9 - 93.1 fL 10/10/2024 12:48 AM [facility] Mean Cell Hemoglobin 29.6 27.5 - 32.1 pg 10/10/2024 12:48 AM [facility] Mean Cell Hemoglobin Concentration 33.1 32.0 - 35.7 g/dL 10/10/2024 12:48 AM [facility] Platelet 823(H) 145 - 357 x10(3)/mc L 10/10/2024 12:48 AM [facility] Mean Platelet Volume 9.2 7.6 - 12.9 fL 10/10/2024 12:48 AM [facility] RDW Standard Deviation 46.3(H) 36.0 - 45.0 fL 10/10/2024 12:48 AM [facility] RDW coefficient of variation 14.6(H) 11.4 - 13.8 % 10/10/2024 12:48 AM [facility] NRBC% auto 0.0 % 10/10/2024 12:48 AM [facility] NRBC Absolute <0.01 <0.01 x10(3)/mc L 10/10/2024 12:48 AM [facility] Neutrophil % 61.3 % 10/10/2024 12:48 AM [facility] Neutrophil Absolute (ANC) - Automated 7.08(H) 1.70 - 6.10 x10(3)/mc L 10/10/2024 12:48 AM [facility] Lymph % 28.7 % 10/10/2024 12:48 AM [facility] Lymph Absolute 3.32(H) 0.90 - 3.20 x10(3)/mc L 10/10/2024 12:48 AM [facility] Monocyte % 7.0 % 10/10/2024 12:48 AM [facility] Monocyte Absolute 0.81 0.30 - 0.90 x10(3)/mc L 10/10/2024 12:48 AM [facility] Eos % 1.6 % 10/10/2024 12:48 AM [facility] Eos Absolute 0.19 0.00 - 0.40 x10(3)/mc L 10/10/2024 12:48 AM [facility] Basophil % 1.0 % 10/10/2024 12:48 AM [facility] Baso Absolute 0.12(H) 0.00 - 0.10 x10(3)/mc L 10/10/2024 12:48 AM [facility] Immature Gran % 0.4 % 12:48 AM [facility] Immature Gran Absolute 0.05(H) 0.00 - 0.04 x10(3)/mc L 10/10/2024 12:48 AM [facility] Blood VENOUS BLOOD SPECIMEN / Unknown Venipuncture / Unknown 10/10/2024 12:33 AM EST 10/10/2024 12:43 AM EST Hayley Torres MD HEMATOLOGY ORDERABLE S [facility] [place] [address] * (ABNORMAL) Basic Metabolic Panel (10/10/2024 12:33 AM EST) Glucose 125 65 - 199 mg/dL 10/10/2024 1:12 AM [facility] Comment:Glucose Concentratio n >=200 mg/dL plus symptoms is consistent with Diabetes Mellitus. Blood Urea Nitrogen 19 10 - 20 mg/dL 10/10/2024 1:12 AM [facility] Creatinine 0.57(L) 0.80 - 1.50 mg/dL 10/10/2024 1:12 AM [facility] Sodium 138 135 - 145 mMol/L 10/10/2024 1:12 AM [facility] Potassium 4.1 3.5 - 5.0 mMol/L 10/10/2024 1:[address] [facility] Chloride 103 98 - 107 mMol/L 10/10/2024 1:12 AM [facility] Carbon Dioxide 25 22 - 31 mMol/L 10/10/2024 1:12 AM [facility] Anion Gap 10 5 - 15 mMol/L 10/10/2024 1:12 AM [facility] Calcium 9.4 8.5 - 10.5 mg/dL 10/10/2024 1:[address] [facility] Est Glomerular Filtration Rate - Male 119 mL/min/1. 73 m?? 10/10/2024 1:12 AM [facility] Comment: This patient's estimated [...] AM EST Hayley Torres MD CHEMISTRY ORDERABLES [facility] [place] [address] * Phosphorus (10/10/2024 12:33 AM EST) Phosphorus 3.8 2.5 - 4.5 mg/dL 10/10/2024 1:12 AM [facility] Blood VENOUS BLOOD SPECIMEN / Unknown Venipuncture / Unknown 10/10/2024 12:33 AM EST 10/10/2024 12:43 AM EST Hayley Torres MD CHEMISTRY ORDERABLES Performing Organization Address City/[facility] Co de Phone Number [facility] [place] [address] * Magnesium (10/10/2024 12:33 AM EST) Magnesium 0.81 0.69 - 1.07 mMol/L 10/10/2024 1:[address] [facility] Blood VENOUS BLOOD SPECIMEN / Unknown Venipuncture / Unknown 10/10/2024 12:33 AM EST 10/10/2024 12:43 AM EST Hayley Torres MD CHEMISTRY ORDERABLES Performing Organization Address [facility] Co de Phone Number [facility] [place] [address] * POC, GLUCOSE (10/10/2024 12:31 AM EST) Glucometer, POC 119 65 - 199 mg/dL 10/10/2024 12:[address] [facility] Comment:Supplemental ranges: <140 mg/dL before meals <180 mg/dL all other times of the day. Blood CAPILLARY BLOOD / Unknown 10/10/2024 12:31 AM EST 10/10/2024 12:32 AM EST Hayley Torres MD POINT OF CARE TEST O RDERABLES Performing Organization Address [facility] Co de Phone Number [facility] [place] [address] * POC, GLUCOSE (10/09/2024 8:16 PM EST) Glucometer, POC 104 65 - 199 mg/dL 10/09/2024 8:[address] [facility] Comment:Supplemental ranges: <140 mg/dL before meals <180 mg/dL all other times of the day. Blood CAPILLARY BLOOD / Unknown 10/09/2024 8:16 PM EST 10/09/2024 8:16 PM EST Hayley Torres MD POINT OF CARE TEST O RDERAHERNANDEZ Performing Organization Address [facility] Co de Phone Number [facility] [place] [address] * POC, GLUCOSE (10/09/2024 3:57 PM EST) Glucometer, POC 120 65 - 199 mg/dL 10/09/2024 3:[address] [facility] Comment:Supplemental ranges: <140 mg/dL before meals <180 mg/dL all other times of the day. Blood CAPILLARY BLOOD / Unknown 10/09/2024 3:57 PM EST 10/09/2024 3:57 PM EST Hayley Torres MD POINT OF CARE TEST O GILDA Performing Organization Address [facility] Co de Phone Number [facility] [place] [address] * Place PICC Line: Contact Vascular Access Page [phone] Extremity to exclude: No restrictions; Is PICC [...] to the planned procedure. Hand Hygiene: The distribution collection operator did perform hand hygiene prior to line insertion. Catheter type: PICC Lot number: [id number] Procedure Technique: Skin was prepped with chlorhexidine. [...] Guidance (IV Team) (10/09/2024 1:55 PM EST) [employer] WORKSTATION ID [id number] RAD Anatomical Region Laterality Modality N/A Radio [...] questions please contact the health patient care technician that requested your imaging first. ? Electronically signed by: Terell Salvador MD, [facility] ([phone]), at 10/09/2024 3:30 PM Narrative 10/09/2024 3:30 [...] have questions please contactthe health patient care technician that requested your imaging first. Electronically signed by: Terell Salvador MD, [facility]([phone]), at 10/09/2024 3:30 PM María Carranza APRN IMG [facility] * POC, GLUCOSE (10/09/2024 11:40 AM EST) [facility] Glucometer, POC 180 65 - 199 mg/dL 10/09/2024 11:[address] [facility] Comment:Supplemental ranges: <140 mg/dL before meals <180 mg/dL all other times of the day. Blood CAPILLARY BLOOD / Unknown 10/09/2024 11:40 AM EST 10/09/2024 11:41 AM EST Hayley Torres MD POINT OF CARE TEST O GILDA Performing Organization Address City/[facility]/ZIP Co de Phone Number [facility] [place] [address] * (ABNORMAL) POC, GLUCOSE (10/09/2024 7:35 AM EST) Glucometer, POC 215(H) 65 - 199 mg/dL 10/09/2024 7:[address] [facility] Comment:Supplemental ranges: <140 mg/dL before meals <180 mg/dL all other times of the day. Blood CAPILLARY BLOOD / Unknown 10/09/2024 7:35 AM EST 10/09/2024 7:36 AM EST Hayley Torres MD POINT OF CARE TEST O GILDA Performing Organization Address [facility] Co de Phone Number [facility] [place] [address] * POC, GLUCOSE (10/09/2024 4:26 AM EST) Glucometer, POC 175 65 - 199 mg/dL 10/09/2024 4:[address] [facility] Comment:Supplemental ranges: <140 mg/dL before meals <180 mg/dL all other times of the day. Blood CAPILLARY BLOOD / Unknown 10/09/2024 4:26 AM EST 10/09/2024 4:26 AM EST Hayley Torres MD POINT OF CARE TEST O GILDA Performing Organization Address City/[facility]/ZIP Co de Phone Number [facility] [place] [address] * (ABNORMAL) CBC (with Diff) (10/09/2024 12:45 AM [facility]) White Blood Cell 11.27(H) 4.00 - 9.50 x10(3)/mc L 10/09/2024 1:31 AM [facility] Red Blood Cell 3.74(L) 4.58 - 5.54 x10(6)/mc L 10/09/2024 1:31 AM [facility] Hemoglobin 10.8(L) 13.7 - 16.5 g/dL 10/09/2024 1:31 AM [facility] Hematocrit 33.5(L) 40.5 - 48.5 % 10/09/2024 1:31 AM [facility] Mean Cell Volume 89.6 82.9 - 93.1 fL 10/09/2024 1:31 AM [facility] Mean Cell Hemoglobin 28.9 27.5 - 32.1 pg 10/09/2024 1:31 AM [facility] Mean Cell Hemoglobin Concentration 32.2 32.0 - 35.7 g/dL 10/09/2024 1:31 AM [facility] Platelet 886(H) 145 - 357 x10(3)/mc L 10/09/2024 1:31 AM [facility] Mean Platelet Volume 9.5 7.6 - 12.9 fL 10/09/2024 1:31 AM [facility] RDW Standard Deviation 47.7(H) 36.0 - 45.0 fL 10/09/2024 1:31 AM [facility] RDW coefficient of variation 14.6(H) 11.4 - 13.8 % 10/09/2024 1:31 AM [facility] NRBC% auto 0.0 % 10/09/2024 1:31 AM [facility] NRBC Absolute <0.01 <0.01 x10(3)/mc L 10/09/2024 1:31 AM [facility] Neutrophil % 61.7 % 10/09/2024 1:31 AM [facility] Neutrophil Absolute (ANC) - Automated 6.95(H) 1.70 - 6.10 x10(3)/mc L 10/09/2024 1:31 AM [facility] Lymph % 28.3 % 10/09/2024 1:31 AM [facility] Lymph Absolute 3.19 0.90 - 3.20 x10(3)/mc L 10/09/2024 1:31 AM [facility] Monocyte % 6.8 % 10/09/2024 1:31 AM [facility] Monocyte Absolute 0.77 0.30 - 0.90 x10(3)/mc L 10/09/2024 1:31 AM [facility] Eos % 1.5 % 10/09/2024 1:31 AM [facility] Eos Absolute 0.17 0.00 - 0.40 x10(3)/mc L 10/09/2024 1:31 AM [facility] Basophil % 1.1 % 10/09/2024 1:31 AM [facility] Baso Absolute 0.12(H) 0.00 - 0.10 x10(3)/mc L 10/09/2024 1:31 AM [facility] Immature Gran % 0.6 % 1:31 AM [facility] Immature Gran Absolute 0.07(H) 0.00 - 0.04 x10(3)/mc L 10/09/2024 1:31 AM [facility] Blood VENOUS BLOOD SPECIMEN / Unknown Venipuncture / Unknown 10/09/2024 12:45 AM EST 10/09/2024 1:27 AM EST Hayley Torres MD HEMATOLOGY ORDERABLE S [facility] [place] [address] * (ABNORMAL) Basic Metabolic Panel (10/09/2024 12:45 AM EST) Glucose 135 65 - 199 mg/dL 10/09/2024 1:54 AM [facility] Comment:Glucose Concentratio n >=200 mg/dL plus symptoms is consistent with Diabetes Mellitus. Blood Urea Nitrogen 22(H) 10 - 20 mg/dL 10/09/2024 1:54 AM [facility] Creatinine 0.53(L) 0.80 - 1.50 mg/dL 10/09/2024 1:54 AM [facility] Sodium 138 135 - 145 mMol/L 10/09/2024 1:54 AM [facility] Potassium 4.1 3.5 - 5.0 mMol/L 10/09/2024 1:54 AM [facility] Chloride 102 98 - 107 mMol/L 10/09/2024 1:54 AM [facility] Carbon Dioxide 24 22 - 31 mMol/L 10/09/2024 1:54 AM [facility] Anion Gap 12 5 - 15 mMol/L 10/09/2024 1:54 AM [facility] Calcium 9.4 8.5 - 10.5 mg/dL 10/09/2024 1:54 AM [facility] Est Glomerular Filtration Rate - Male 122 mL/min/1. 73 m?? 10/09/2024 1:54 AM [facility] Comment: This patient's estimated [...] Torres MD CHEMISTRY ORDERABLES Performing Organization Address City/[facility] Co de Phone Number [facility] [place] [address] * Phosphorus (10/09/2024 12:45 AM EST) Phosphorus 3.9 2.5 - 4.5 mg/dL 10/09/2024 1:[address] [facility] Blood VENOUS BLOOD SPECIMEN / Unknown Venipuncture / Unknown 10/09/2024 12:45 AM EST 10/09/2024 1:27 AM EST Hayley Torres MD CHEMISTRY ORDERABLES Performing Organization Address [facility] Co de Phone Number [facility] [place] [address] * Magnesium (10/09/2024 12:45 AM EST) Magnesium 0.80 0.69 - 1.07 mMol/L 10/09/2024 1:[address] [facility] Blood VENOUS BLOOD SPECIMEN / Unknown Venipuncture / Unknown 10/09/2024 12:45 AM EST 10/09/2024 1:27 AM EST Hayley Torres MD CHEMISTRY ORDERABLES Performing Organization Address City/[facility] Co de Phone Number [facility] [place] [address] * POC, GLUCOSE (10/09/2024 12:11 AM EST) Glucometer, POC 157 65 - 199 mg/dL 10/09/2024 12:[address] [facility] Comment:Supplemental ranges: <140 mg/dL before meals <180 mg/dL all other times of the day. Blood CAPILLARY BLOOD / Unknown 10/09/2024 12:11 AM EST 10/09/2024 12:11 AM EST Hayley Torres MD POINT OF CARE TEST O RDTYESHA Performing Organization Address City/[facility]/ZIP Co de Phone Number [facility] [place] [address] * POC, GLUCOSE (10/08/2024 7:25 PM EST) Glucometer, POC 157 65 - 199 mg/dL 10/08/2024 7:[address] [facility] Comment:Supplemental ranges: <140 mg/dL before meals <180 mg/dL all other times of the day. Blood CAPILLARY BLOOD / Unknown 10/08/2024 7:25 PM EST 10/08/2024 7:25 PM EST Hayley Torres MD POINT OF CARE TEST O GILDA Performing Organization Address [facility] Co de Phone Number [facility] [place] [address] * POC, GLUCOSE (10/08/2024 5:54 PM EST) Glucometer, POC 198 65 - 199 mg/dL 10/08/2024 5:[address] [facility] Comment:Supplemental ranges: <140 mg/dL before meals <180 mg/dL all other times of the day. Blood CAPILLARY BLOOD / Unknown 10/08/2024 5:54 PM EST 10/08/2024 5:54 PM EST Hayley Torres MD POINT OF CARE TEST O GILDA Performing Organization Address City/[facility]/ZIP Co de Phone Number [facility] [place] [address] * (ABNORMAL) POC, GLUCOSE (10/08/2024 4:08 PM EST) Glucometer, POC 281(H) 65 - 199 mg/dL 10/08/2024 4:[address] [facility] Comment:Supplemental ranges: <140 mg/dL before meals <180 mg/dL all other times of the day. Blood CAPILLARY BLOOD / Unknown 10/08/2024 4:08 PM EST 10/08/2024 4:09 PM EST Hayley Torres MD POINT OF CARE TEST O GILDA Performing Organization Address City/[facility]/ZIP Co de Phone Number [facility] [place] [address] * POC, GLUCOSE (10/08/2024 12:44 PM EST) Glucometer, POC 146 65 - 199 mg/dL 10/08/2024 12:[address] [facility] Comment:Supplemental ranges: <140 mg/dL before meals <180 mg/dL all other times of the day. Blood CAPILLARY BLOOD / Unknown 10/08/2024 12:44 PM EST 10/08/2024 12:44 PM EST Hayley Torres MD POINT OF CARE TEST O GILDA Performing Organization Address [facility] Co de Phone Number [facility] [place] [address] * POC, GLUCOSE (10/08/2024 8:30 AM EST) Glucometer, POC 172 65 - 199 mg/dL 10/08/2024 8:[address] [facility] Comment:Supplemental ranges: <140 mg/dL before meals <180 mg/dL all other times of the day. Blood CAPILLARY BLOOD / Unknown 10/08/2024 8:30 AM EST 10/08/2024 8:30 AM EST Hayley Torres MD POINT OF CARE TEST O GILDA [facility] [place] [address] * Vancomycin Level, Random (10/08/2024 5:59 AM EST) Vancomycin, Random 6.8 mg/L 2023 7:[address] [facility] Comment:This level is for de termination of the patient's vancomycin mdkj-gnsdw-bpa-curve (AUC) value. Contact the inpatient pharmacy for interpretation. Blood VENOUS BLOOD SPECIMEN / Unknown Venipuncture / Unknown 10/08/2024 5:59 AM EST 10/08/2024 7:29 AM EST Hayley Torres MD CHEMISTRY ORDERABLES Performing Organization Address City/[facility]/ZIP Co de Phone Number [facility] [place] [address] * POC, GLUCOSE (10/08/2024 4:02 AM EST) Glucometer, POC 163 65 - 199 mg/dL 10/08/2024 4:[address] [facility] Comment:Supplemental ranges: <140 mg/dL before meals <180 mg/dL all other times of the day. Blood CAPILLARY BLOOD / Unknown 10/08/2024 4:02 AM EST 10/08/2024 4:02 AM EST Hayley Torres MD POINT OF CARE TEST O RDERABLES Performing Organization Address City/[facility]/ZIP Co de Phone Number [facility] [place] [address] * (ABNORMAL) CBC (with Diff) (10/08/2024 12:08 AM EST) White Blood Cell 10.35(H) 4.00 - 9.50 x10(3)/mc L 10/08/2024 12:[address] [facility] Red Blood Cell 3.53(L) 4.58 - 5.54 x10(6)/mc L 10/08/2024 12:[address] [facility] Hemoglobin 10.2(L) 13.7 - 16.5 g/dL 10/08/2024 12:[address] [facility] Hematocrit 31.7(L) 40.5 - 48.5 % 10/08/2024 12:29 AM [facility] Mean Cell Volume 89.8 82.9 - 93.1 fL 10/08/2024 12:29 AM [facility] Mean Cell Hemoglobin 28.9 27.5 - 32.1 pg 10/08/2024 12:29 AM [facility] Mean Cell Hemoglobin Concentration 32.2 32.0 - 35.7 g/dL 10/08/2024 12:29 AM [facility] Platelet 778(H) 145 - 357 x10(3)/mc L 10/08/2024 12:29 AM [facility] Mean Platelet Volume 9.1 7.6 - 12.9 fL 10/08/2024 12:29 AM [facility] RDW Standard Deviation 47.5(H) 36.0 - 45.0 fL 10/08/2024 12:29 AM [facility] RDW coefficient of variation 14.6(H) 11.4 - 13.8 % 10/08/2024 12:29 AM [facility] NRBC% auto 0.0 % 10/08/2024 12:29 AM [facility] NRBC Absolute <0.01 <0.01 x10(3)/mc L 10/08/2024 12:29 AM [facility] Neutrophil % 60.9 % 10/08/2024 12:29 AM [facility] Neutrophil Absolute (ANC) - Automated 6.30(H) 1.70 - 6.10 x10(3)/mc L 10/08/2024 12:29 AM [facility] Lymph % 28.4 % 10/08/2024 12:29 AM [facility] Lymph Absolute 2.94 0.90 - 3.20 x10(3)/mc L 10/08/2024 12:29 AM [facility] Monocyte % 7.2 % 10/08/2024 12:29 AM [facility] Monocyte Absolute 0.75 0.30 - 0.90 x10(3)/mc L 10/08/2024 12:[address] [facility] Eos % 1.7 % 10/08/2024 12:[address] [facility] Eos Absolute 0.18 0.00 - 0.40 x10(3)/mc L 10/08/2024 12:[address] [facility] Basophil % 1.0 % 10/08/2024 12:29 AM [facility] Baso Absolute 0.10 0.00 - 0.10 x10(3)/mc L 10/08/2024 12:29 AM [facility] Immature Gran % 0.8 % 12:29 AM [facility] Immature Gran Absolute 0.08(H) 0.00 - 0.04 x10(3)/mc L 10/08/2024 12:29 AM [facility] Blood VENOUS BLOOD SPECIMEN / Unknown Venipuncture / Unknown 10/08/2024 12:08 AM EST 10/08/2024 12:23 AM EST Hayley Torres MD HEMATOLOGY ORDERABLE S Performing Organization Address City/State/[facility] Co de Phone Number [facility] [place] [address] * (ABNORMAL) Basic Metabolic Panel (10/08/2024 12:08 AM EST) Glucose 151 65 - 199 mg/dL 10/08/2024 12:50 AM [facility] Comment:Glucose Concentratio n >=200 mg/dL plus symptoms is consistent with Diabetes Mellitus. Blood Urea Nitrogen 19 10 - 20 mg/dL 10/08/2024 12:50 AM [facility] Creatinine 0.60(L) 0.80 - 1.50 mg/dL 10/08/2024 12:50 AM [facility] Sodium 135 135 - 145 mMol/L 10/08/2024 12:50 AM [facility] Potassium 3.8 3.5 - 5.0 mMol/L 10/08/2024 12:50 AM [facility] Chloride 101 98 - 107 mMol/L 10/08/2024 12:50 AM [facility] Carbon Dioxide 25 22 - 31 mMol/L 10/08/2024 12:50 AM [facility] Anion Gap 9 5 - 15 mMol/L 10/08/2024 12:50 AM [facility] Calcium 9.2 8.5 - 10.5 mg/dL 10/08/2024 12:50 AM [facility] Est Glomerular Filtration Rate - Male 118 mL/min/1. 73 m?? 10/08/2024 12:50 AM [facility] Comment: This patient's estimated [...] AM EST Hayley Torres MD CHEMISTRY ORDERABLES [facility] [place] [address] * Phosphorus (10/08/2024 12:08 AM EST) Phosphorus 3.4 2.5 - 4.5 mg/dL 10/08/2024 12:50 AM [facility] Blood VENOUS BLOOD SPECIMEN / Unknown Venipuncture / Unknown 10/08/2024 12:08 AM EST 10/08/2024 12:23 AM EST Hayley Torres MD CHEMISTRY ORDERABLES [facility] [place] [address] * Magnesium (10/08/2024 12:08 AM EST) Magnesium 0.85 0.69 - 1.07 mMol/L 10/08/2024 12:[address] [facility] Blood VENOUS BLOOD SPECIMEN / Unknown Venipuncture / Unknown 10/08/2024 12:08 AM EST 10/08/2024 12:23 AM EST Hayley Torres MD CHEMISTRY ORDERABLES Performing Organization Address [facility] Co de Phone Number [facility] [place] [address] * CK (10/08/2024 12:08 AM EST) Creatine Kinase 24 0 - 200 unit/L 10/08/2024 12:[address] [facility] Blood VENOUS BLOOD SPECIMEN / Unknown Venipuncture / Unknown 10/08/2024 12:08 AM EST 10/08/2024 12:23 AM EST Hayley Torres MD CHEMISTRY ORDERABLES Performing Organization Address [facility] Co de Phone Number [facility] [place] [address] * POC, GLUCOSE (10/08/2024 12:05 AM EST) Glucometer, POC 100 65 - 199 mg/dL 10/08/2024 12:[address] [facility] Comment:Supplemental ranges: <140 mg/dL before meals <180 mg/dL all other times of the day. Blood CAPILLARY BLOOD / Unknown 10/08/2024 12:05 AM EST 10/08/2024 12:05 AM EST Hayley Torres MD POINT OF CARE TEST O RDERABLES Performing Organization Address City/[facility] Co de Phone Number [facility] [place] [address] * POC, GLUCOSE (10/07/2024 8:29 PM EST) Glucometer, POC 107 65 - 199 mg/dL 10/07/2024 8:[address] [facility] Comment:Supplemental ranges: <140 mg/dL before meals <180 mg/dL all other times of the day. Blood CAPILLARY BLOOD / Unknown 10/07/2024 8:29 PM EST 10/07/2024 8:30 PM EST Hayley Torres MD POINT OF CARE TEST O RDERAHERNANDEZ Performing Organization Address [facility] de Phone Number [facility] [place] [address] * POC, GLUCOSE (10/07/2024 4:33 PM EST) Glucometer, POC 129 65 - 199 mg/dL 10/07/2024 4:[address] [facility] Comment:Supplemental ranges: <140 mg/dL before meals <180 mg/dL all other times of the day. Blood CAPILLARY BLOOD / Unknown 10/07/2024 4:33 PM EST 10/07/2024 4:34 PM EST Hayley Torres MD POINT OF CARE TEST O RDERABLES Performing Organization Address [facility] Co de Phone Number [facility] [place] [address] * (ABNORMAL) POC, GLUCOSE (10/07/2024 10:58 AM EST) Glucometer, POC 221(H) 65 - 199 mg/dL 10/07/2024 10:[address] [facility] Comment:Supplemental ranges: <140 mg/dL before meals <180 mg/dL all other times of the day. Blood CAPILLARY BLOOD / Unknown 10/07/2024 10:58 AM EST 10/07/2024 10:59 AM EST Hayley Torres MD POINT OF CARE TEST O GILDA Performing Organization Address [facility] Co de Phone Number [facility] [place] [address] * (ABNORMAL) POC, GLUCOSE (10/07/2024 7:42 AM EST) Glucometer, POC 201(H) 65 - 199 mg/dL 10/07/2024 7:[address] [facility] Comment:Supplemental ranges: <140 mg/dL before meals <180 mg/dL all other times of the day. Blood CAPILLARY BLOOD / Unknown 10/07/2024 7:42 AM EST 10/07/2024 7:43 AM EST Hayley Torres MD POINT OF CARE TEST O GILDA Performing Organization Address [facility] de Phone Number [facility] [place] [address] * POC, GLUCOSE (10/07/2024 3:58 AM EST) Glucometer, POC 150 65 - 199 mg/dL 10/07/2024 3:[address] [facility] Comment:Supplemental ranges: <140 mg/dL before meals <180 mg/dL all other times of the day. Blood CAPILLARY BLOOD / Unknown 10/07/2024 3:58 AM EST 10/07/2024 3:58 AM EST Hayley Torres MD POINT OF CARE TEST O GILDA Performing Organization Address [facility] Co de Phone Number [facility] [place] [address] * (ABNORMAL) CBC (with Diff) (10/07/2024 12:06 AM EST) White Blood Cell 11.27(H) 4.00 - 9.50 x10(3)/mc L 10/07/2024 12:19 AM [facility] Red Blood Cell 3.47(L) 4.58 - 5.54 x10(6)/mc L 10/07/2024 12:19 AM [facility] Hemoglobin 10.1(L) 13.7 - 16.5 g/dL 10/07/2024 12:19 AM [facility] Hematocrit 30.9(L) 40.5 - 48.5 % 10/07/2024 12:19 AM [facility] Mean Cell Volume 89.0 82.9 - 93.1 fL 10/07/2024 12:19 AM [facility] Mean Cell Hemoglobin 29.1 27.5 - 32.1 pg 10/07/2024 12:19 AM [facility] Mean Cell Hemoglobin Concentration 32.7 32.0 - 35.7 g/dL 10/07/2024 12:19 AM [facility] Platelet 789(H) 145 - 357 x10(3)/mc L 10/07/2024 12:19 AM [facility] Mean Platelet Volume 9.0 7.6 - 12.9 fL 10/07/2024 12:19 AM [facility] RDW Standard Deviation 45.7(H) 36.0 - 45.0 fL 10/07/2024 12:19 AM [facility] RDW coefficient of variation 14.3(H) 11.4 - 13.8 % 10/07/2024 12:19 AM [facility] NRBC% auto 0.0 % 10/07/2024 12:19 AM [facility] NRBC Absolute <0.01 <0.01 x10(3)/mc L 10/07/2024 12:19 AM [facility] Neutrophil % 62.9 % 10/07/2024 12:19 AM [facility] Neutrophil Absolute (ANC) - Automated 7.09(H) 1.70 - 6.10 x10(3)/mc L 10/07/2024 12:19 AM [facility] Lymph % 28.3 % 10/07/2024 12:19 AM [facility] Lymph Absolute 3.19 0.90 - 3.20 x10(3)/mc L 10/07/2024 12:19 AM [facility] Monocyte % 5.7 % 10/07/2024 12:19 AM [facility] Monocyte Absolute 0.64 0.30 - 0.90 x10(3)/mc L 10/07/2024 12:19 AM [facility] Eos % 1.5 % 10/07/2024 12:19 AM [facility] Eos Absolute 0.17 0.00 - 0.40 x10(3)/mc L 10/07/2024 12:19 AM [facility] Basophil % 0.7 % 10/07/2024 12:19 AM [facility] Baso Absolute 0.08 0.00 - 0.10 x10(3)/mc L 10/07/2024 12:19 AM [facility] Immature Gran % 0.9 % 12:19 AM [facility] Immature Gran Absolute 0.10(H) 0.00 - 0.04 x10(3)/mc L 10/07/2024 12:19 AM [facility] Blood VENOUS BLOOD SPECIMEN / Unknown Venipuncture / Unknown 10/07/2024 12:06 AM EST 10/07/2024 12:11 AM EST Hayley Torres MD HEMATOLOGY ORDERABLE S [facility] [place] [address] * (ABNORMAL) Basic Metabolic Panel (10/07/2024 12:06 AM EST) Glucose 145 65 - 199 mg/dL 10/07/2024 12:40 AM [facility] Comment:Glucose Concentratio n >=200 mg/dL plus symptoms is consistent with Diabetes Mellitus. Blood Urea Nitrogen 18 10 - 20 mg/dL 10/07/2024 12:40 AM [facility] Creatinine 0.61(L) 0.80 - 1.50 mg/dL 10/07/2024 12:40 AM [facility] Sodium 139 135 - 145 mMol/L 10/07/2024 12:40 AM [facility] Potassium 4.0 3.5 - 5.0 mMol/L 10/07/2024 12:40 AM [facility] Chloride 104 98 - 107 mMol/L 10/07/2024 12:40 AM [facility] Carbon Dioxide 25 22 - 31 mMol/L 10/07/2024 12:40 AM [facility] Anion Gap 10 5 - 15 mMol/L 10/07/2024 12:40 AM [facility] Calcium 9.0 8.5 - 10.5 mg/dL 10/07/2024 12:40 AM [facility] Est Glomerular Filtration Rate - Male 117 mL/min/1. 73 m?? 10/07/2024 12:40 AM [facility] Comment: This patient's estimated [...] AM EST Hayley Torres MD CHEMISTRY ORDERABLES [facility] [place] [address] * Phosphorus (10/07/2024 12:06 AM EST) Phosphorus 4.2 2.5 - 4.5 mg/dL 10/07/2024 12:[address] [facility] Blood VENOUS BLOOD SPECIMEN / Unknown Venipuncture / Unknown 10/07/2024 12:06 AM EST 10/07/2024 12:11 AM EST Hayley Torres MD CHEMISTRY ORDERABLES Performing Organization Address City/[facility]/ZIP Co de Phone Number [facility] [place] [address] * Magnesium (10/07/2024 12:06 AM EST) Magnesium 0.85 0.69 - 1.07 mMol/L 10/07/2024 12:[address] [facility] Blood VENOUS BLOOD SPECIMEN / Unknown Venipuncture / Unknown 10/07/2024 12:06 AM EST 10/07/2024 12:11 AM EST Hayley Torres MD CHEMISTRY ORDERABLES Performing Organization Address [facility] Co de Phone Number [facility] [place] [address] * POC, GLUCOSE (10/07/2024 12:04 AM EST) Glucometer, POC 149 65 - 199 mg/dL 10/07/2024 12:[address] [facility] Comment:Supplemental ranges: <140 mg/dL before meals <180 mg/dL all other times of the day. Blood CAPILLARY BLOOD / Unknown 10/07/2024 12:04 AM EST 10/07/2024 12:05 AM EST Hayley Torres MD POINT OF CARE TEST O RDERABLES Performing Organization Address City/[facility]/ZIP Co de Phone Number [facility] [place] [address] * POC, GLUCOSE (10/06/2024 7:24 PM EST) Glucometer, POC 151 65 - 199 mg/dL 10/06/2024 7:[address] [facility] Comment:Supplemental ranges: <140 mg/dL before meals <180 mg/dL all other times of the day. Blood CAPILLARY BLOOD / Unknown 10/06/2024 7:24 PM EST 10/06/2024 7:24 PM EST Hayley Torres MD POINT OF CARE TEST O GILDA Performing Organization Address [facility] Co de Phone Number [facility] [place] [address] * POC, GLUCOSE (10/06/2024 5:32 PM EST) Glucometer, POC 126 65 - 199 mg/dL 10/06/2024 5:[address] [facility] Comment:Supplemental ranges: <140 mg/dL before meals <180 mg/dL all other times of the day. Blood CAPILLARY BLOOD / Unknown 10/06/2024 5:32 PM EST 10/06/2024 5:32 PM EST Hayley Torres MD POINT OF CARE TEST O GILDA Performing Organization Address City/[facility] Co de Phone Number [facility] [place] [address] * XR PICC Placement Over 5 Years with Imaging Guidance (IV Team) (10/06/2024 3:04 PM EST) WORKSTATION ID [id number] DH RAD Anatomical Region Laterality Modality N/A [...] questions please contact the health patient care technician that requested your imaging first. ? Electronically signed by: Charles Hamilton MD, [facility] ??([phone]), at 10/06/2024 3:43 PM Narrative 10/06/2024 3:43 [...] have questions please contactthe health patient care technician that requested your imaging first. Hayley Torres MD IMG FLUORO ORDERABLE S * Place PICC Line: Contact Vascular Access Page [phone] Extremity to exclude: No restrictions; Is PICC [...] to the planned procedure. Hand Hygiene: The distribution collection operator did perform hand hygiene prior to line insertion. Catheter type: PICC Lot number: [id number] Procedure Technique: Skin was prepped with chlorhexidine. [...] - 199 mg/dL 10/06/2024 12:[address] [facility] Comment:Supplemental ranges: <140 mg/dL before meals <180 mg/dL all other times of the day. Blood CAPILLARY BLOOD / Unknown 10/06/2024 12:12 PM EST 10/06/2024 12:12 PM EST Hayley Torres MD POINT OF CARE TEST O DIMITRIERAHERNANDEZ Performing Organization Address [facility] Co de Phone Number [facility] [place] [address] * (ABNORMAL) POC, GLUCOSE (10/06/2024 7:34 AM EST) Glucometer, POC 209(H) 65 - 199 mg/dL 10/06/2024 7:[address] [facility] Comment:Supplemental ranges: <140 mg/dL before meals <180 mg/dL all other times of the day. Blood CAPILLARY BLOOD / Unknown 10/06/2024 7:34 AM EST 10/06/2024 7:34 AM EST Hayley Torres MD POINT OF CARE TEST O RDERAHERNANDEZ [facility] [place] [address] * POC, GLUCOSE (10/06/2024 3:29 AM EST) Glucometer, POC 151 65 - 199 mg/dL 10/06/2024 3:[address] [facility] Comment:Supplemental ranges: <140 mg/dL before meals <180 mg/dL all other times of the day. Blood CAPILLARY BLOOD / Unknown 10/06/2024 3:29 AM EST 10/06/2024 3:29 AM EST Hayley Torres MD POINT OF CARE TEST O RDERABLES Performing Organization Address City/[facility]/ZIP Co de Phone Number [facility] [place] [address] * Vancomycin Level, Random (10/06/2024 12:03 AM EST) Pathologist [facility] Vancomycin, Random 20.5 mg/L 2023 9:[address] [facility] Comment:This level is for de termination of the patient's vancomycin qyxc-wvosc-khn-curve (AUC) value. Contact the inpatient pharmacy for interpretation. Blood VENOUS BLOOD SPECIMEN / Unknown Venipuncture / Unknown 10/06/2024 12:03 AM EST 10/06/2024 12:15 AM EST Hayley Torres MD CHEMISTRY ORDERABLES Performing Organization Address City/[facility]/ZIP Co de Phone Number [facility] [place] [address] * (ABNORMAL) CBC (with Diff) (10/06/2024 12:03 AM EST) Pathologist [facility] White Blood Cell 12.26(H) 4.00 - 9.50 x10(3)/mc L 10/06/2024 12:19 AM [facility] Red Blood Cell 3.49(L) 4.58 - 5.54 x10(6)/mc L 10/06/2024 12:19 AM [facility] Hemoglobin 10.1(L) 13.7 - 16.5 g/dL 10/06/2024 12:19 AM [facility] Hematocrit 30.9(L) 40.5 - 48.5 % 10/06/2024 12:19 AM [facility] Mean Cell Volume 88.5 82.9 - 93.1 fL 10/06/2024 12:19 AM [facility] Mean Cell Hemoglobin 28.9 27.5 - 32.1 pg 10/06/2024 12:19 AM [facility] Mean Cell Hemoglobin Concentration 32.7 32.0 - 35.7 g/dL 10/06/2024 12:19 AM [facility] Platelet 772(H) 145 - 357 x10(3)/mc L 10/06/2024 12:19 AM [facility] Mean Platelet Volume 9.0 7.6 - 12.9 fL 10/06/2024 12:19 AM [facility] RDW Standard Deviation 46.0(H) 36.0 - 45.0 fL 10/06/2024 12:19 AM [facility] RDW coefficient of variation 14.5(H) 11.4 - 13.8 % 10/06/2024 12:19 AM [facility] NRBC% auto 0.0 % 10/06/2024 12:19 AM [facility] NRBC Absolute <0.01 <0.01 x10(3)/mc L 10/06/2024 12:19 AM [facility] Neutrophil % 66.7 % 10/06/2024 12:19 AM [facility] Neutrophil Absolute (ANC) - Automated 8.18(H) 1.70 - 6.10 x10(3)/mc L 10/06/2024 12:19 AM [facility] Lymph % 24.1 % 10/06/2024 12:19 AM [facility] Lymph Absolute 2.95 0.90 - 3.20 x10(3)/mc L 10/06/2024 12:19 AM [facility] Monocyte % 6.2 % 10/06/2024 12:19 AM [facility] Monocyte Absolute 0.76 0.30 - 0.90 x10(3)/mc L 10/06/2024 12:19 AM [facility] Eos % 1.3 % 10/06/2024 12:[address] [facility] Eos Absolute 0.16 0.00 - 0.40 x10(3)/mc L 10/06/2024 12:19 AM [facility] Basophil % 0.5 % 10/06/2024 12:19 AM [facility] Baso Absolute 0.06 0.00 - 0.10 x10(3)/mc L 10/06/2024 12:19 AM [facility] Immature Gran % 1.2 % 12:19 AM [facility] Immature Gran Absolute 0.15(H) 0.00 - 0.04 x10(3)/mc L 10/06/2024 12:19 AM [facility] Blood VENOUS BLOOD SPECIMEN / Unknown Venipuncture / Unknown 10/06/2024 12:03 AM EST 10/06/2024 12:15 AM EST Hayley Torres MD HEMATOLOGY ORDERABLE S [facility] [place] [address] * Basic Metabolic Panel (10/06/2024 12:03 AM EST) Glucose 94 65 - 199 mg/dL 10/06/2024 12:44 AM [facility] Comment:Glucose Concentratio n >=200 mg/dL plus symptoms is consistent with Diabetes Mellitus. Blood Urea Nitrogen 17 10 - 20 mg/dL 10/06/2024 12:44 AM [facility] Creatinine 0.85 0.80 - 1.50 mg/dL 10/06/2024 12:44 AM [facility] Sodium 139 135 - 145 mMol/L 10/06/2024 12:44 AM [facility] Potassium 4.3 3.5 - 5.0 mMol/L 10/06/2024 12:44 AM [facility] Chloride 103 98 - 107 mMol/L 10/06/2024 12:[address] [facility] Carbon Dioxide 22 22 - 31 mMol/L 10/06/2024 12:44 AM [facility] Anion Gap 14 5 - 15 mMol/L 10/06/2024 12:44 AM [facility] Calcium 8.8 8.5 - 10.5 mg/dL 10/06/2024 12:44 AM [facility] Est Glomerular Filtration Rate - Male 106 mL/min/1. 73 m?? 10/06/2024 12:44 AM [facility] Comment: This patient's estimated [...] AM EST Hayley Torres MD CHEMISTRY ORDERABLES [facility] [place] [address] * Phosphorus (10/06/2024 12:03 AM EST) Phosphorus 4.3 2.5 - 4.5 mg/dL 10/06/2024 12:[address] [facility] Blood VENOUS BLOOD SPECIMEN / Unknown Venipuncture / Unknown 10/06/2024 12:03 AM EST 10/06/2024 12:15 AM EST Hayley Torres MD CHEMISTRY ORDERABLES [facility] [place] [address] * Magnesium (10/06/2024 12:03 AM EST) Magnesium 0.83 0.69 - 1.07 mMol/L 10/06/2024 12:[address] [facility] Blood VENOUS BLOOD SPECIMEN / Unknown Venipuncture / Unknown 10/06/2024 12:03 AM EST 10/06/2024 12:15 AM EST Hayley Torres MD CHEMISTRY ORDERABLES Performing Organization Address City/[facility]/ZIP Co de Phone Number [facility] [place] [address] * POC, GLUCOSE (10/06/2024 12:02 AM EST) Glucometer, POC 98 65 - 199 mg/dL 10/06/2024 12:[address] [facility] Comment:Supplemental ranges: <140 mg/dL before meals <180 mg/dL all other times of the day. Blood CAPILLARY BLOOD / Unknown 10/06/2024 12:02 AM EST 10/06/2024 12:02 AM EST Hayley Torres MD POINT OF CARE TEST O RDERABLES Performing Organization Address [facility]/ZIP Co de Phone Number [facility] [place] [address] * POC, GLUCOSE (10/05/2024 7:22 PM EST) Glucometer, POC 186 65 - 199 mg/dL 10/05/2024 7:[address] [facility] Comment:Supplemental ranges: <140 mg/dL before meals <180 mg/dL all other times of the day. Blood CAPILLARY BLOOD / Unknown 10/05/2024 7:22 PM EST 10/05/2024 7:23 PM EST Hayley Torres MD POINT OF CARE TEST O RDERABLES [facility] [place] [address] * POC, GLUCOSE (10/05/2024 5:35 PM EST) Glucometer, POC 177 65 - 199 mg/dL 10/05/2024 5:[address] [facility] Comment:Supplemental ranges: <140 mg/dL before meals <180 mg/dL all other times of the day. Blood CAPILLARY BLOOD / Unknown 10/05/2024 5:35 PM EST 10/05/2024 5:35 PM EST Hayley Torres MD POINT OF CARE TEST O GILDA Performing Organization Address City/[facility]/ZIP Co de Phone Number [facility] [place] [address] * POC, GLUCOSE (10/05/2024 3:57 PM EST) Glucometer, POC 141 65 - 199 mg/dL 10/05/2024 3:[address] [facility] Comment:Supplemental ranges: <140 mg/dL before meals <180 mg/dL all other times of the day. Blood CAPILLARY BLOOD / Unknown 10/05/2024 3:57 PM EST 10/05/2024 3:57 PM EST Hayley Torres MD POINT OF CARE TEST O GILDA Performing Organization Address City/[facility]/ZIP Co de Phone Number [facility] [place] [address] * POC, GLUCOSE (10/05/2024 11:50 AM EST) Glucometer, POC 134 65 - 199 mg/dL 10/05/2024 11:[address] [facility] Comment:Supplemental ranges: <140 mg/dL before meals <180 mg/dL all other times of the day. Blood CAPILLARY BLOOD / Unknown 10/05/2024 11:50 AM EST 10/05/2024 11:50 AM EST Hayley Torres MD POINT OF CARE TEST O RDERAHERNANDEZ Performing Organization Address [facility] Co de Phone Number [facility] [place] [address] * POC, GLUCOSE (10/05/2024 7:51 AM EST) Glucometer, POC 114 65 - 199 mg/dL 10/05/2024 7:[address] [facility] Comment:Supplemental ranges: <140 mg/dL before meals <180 mg/dL all other times of the day. Blood CAPILLARY BLOOD / Unknown 10/05/2024 7:51 AM EST 10/05/2024 7:51 AM EST Hayley Torres MD POINT OF CARE TEST O GILDA Performing Organization Address [facility] de Phone Number [facility] [place] [address] * POC, GLUCOSE (10/05/2024 4:18 AM EST) Glucometer, POC 147 65 - 199 mg/dL 10/05/2024 4:[address] [facility] Comment:Supplemental ranges: <140 mg/dL before meals <180 mg/dL all other times of the day. Blood CAPILLARY BLOOD / Unknown 10/05/2024 4:18 AM EST 10/05/2024 4:18 AM EST Hayley Torres MD POINT OF CARE TEST O GILDA Performing Organization Address City/[facility] Co de Phone Number [facility] [place] [address] * (ABNORMAL) CBC (with Diff) (10/04/2024 11:50 PM EST) White Blood Cell 12.73(H) 4.00 - 9.50 x10(3)/mc L 10/05/2024 12:[address] [facility] Red Blood Cell 3.45(L) 4.58 - 5.54 x10(6)/mc L 10/05/2024 12:10 AM [facility] Hemoglobin 9.8(L) 13.7 - 16.5 g/dL 10/05/2024 12:10 AM [facility] Hematocrit 30.6(L) 40.5 - 48.5 % 10/05/2024 12:10 AM [facility] Mean Cell Volume 88.7 82.9 - 93.1 fL 10/05/2024 12:10 AM [facility] Mean Cell Hemoglobin 28.4 27.5 - 32.1 pg 10/05/2024 12:10 AM [facility] Mean Cell Hemoglobin Concentration 32.0 32.0 - 35.7 g/dL 10/05/2024 12:10 AM [facility] Platelet 709(H) 145 - 357 x10(3)/mc L 10/05/2024 12:10 AM [facility] Mean Platelet Volume 8.9 7.6 - 12.9 fL 10/05/2024 12:10 AM [facility] RDW Standard Deviation 45.4(H) 36.0 - 45.0 fL 10/05/2024 12:10 AM [facility] RDW coefficient of variation 14.3(H) 11.4 - 13.8 % 10/05/2024 12:10 AM [facility] NRBC% auto 0.0 % 10/05/2024 12:10 AM [facility] NRBC Absolute <0.01 <0.01 x10(3)/mc L 10/05/2024 12:10 AM [facility] Neutrophil % 68.5 % 10/05/2024 12:10 AM [facility] Neutrophil Absolute (ANC) - Automated 8.72(H) 1.70 - 6.10 x10(3)/mc L 10/05/2024 12:10 AM [facility] Lymph % 21.3 % 10/05/2024 12:10 AM [facility] Lymph Absolute 2.71 0.90 - 3.20 x10(3)/mc L 10/05/2024 12:10 AM [facility] Monocyte % 5.5 % 10/05/2024 12:10 AM [facility] Monocyte Absolute 0.70 0.30 - 0.90 x10(3)/mc L 10/05/2024 12:10 AM [facility] Eos % 1.6 % 10/05/2024 12:10 AM [facility] Eos Absolute 0.20 0.00 - 0.40 x10(3)/mc L 10/05/2024 12:10 AM [facility] Basophil % 0.5 % 10/05/2024 12:10 AM [facility] Baso Absolute 0.07 0.00 - 0.10 x10(3)/mc L 10/05/2024 12:10 AM [facility] Immature Gran % 2.6 % 12:10 AM [facility] Immature Gran Absolute 0.33(H) 0.00 - 0.04 x10(3)/mc L 10/05/2024 12:10 AM [facility] Blood VENOUS BLOOD SPECIMEN / Unknown Venipuncture / Unknown 10/04/2024 11:50 PM EST 10/05/2024 12:03 AM EST Hayley Torres MD HEMATOLOGY ORDERABLE S [facility] [place] [address] * (ABNORMAL) Basic Metabolic Panel (10/04/2024 11:50 PM EST) Glucose 104 65 - 199 mg/dL 10/05/2024 12:35 AM [facility] Comment:Glucose Concentratio n >=200 mg/dL plus symptoms is consistent with Diabetes Mellitus. Blood Urea Nitrogen 13 10 - 20 mg/dL 10/05/2024 12:35 AM [facility] Creatinine 0.55(L) 0.80 - 1.50 mg/dL 10/05/2024 12:35 AM [facility] Sodium 140 135 - 145 mMol/L 10/05/2024 12:35 AM [facility] Potassium 3.9 3.5 - 5.0 mMol/L 10/05/2024 12:35 AM [facility] Chloride 105 98 - 107 mMol/L 10/05/2024 12:35 AM [facility] Carbon Dioxide 24 22 - 31 mMol/L 10/05/2024 12:35 AM [facility] Anion Gap 11 5 - 15 mMol/L 10/05/2024 12:35 AM [facility] Calcium 9.0 8.5 - 10.5 mg/dL 10/05/2024 12:35 AM [facility] Est Glomerular Filtration Rate - Male 121 mL/min/1. 73 m?? 10/05/2024 12:35 AM [facility] Comment: This patient's estimated [...] AM EST Hayley Torres MD CHEMISTRY ORDERABLES [facility] [place] [address] * Phosphorus (10/04/2024 11:50 PM EST) Phosphorus 4.2 2.5 - 4.5 mg/dL 10/05/2024 12:[address] [facility] Blood VENOUS BLOOD SPECIMEN / Unknown Venipuncture / Unknown 10/04/2024 11:50 PM EST 10/05/2024 12:03 AM EST Hayley Torres MD CHEMISTRY ORDERABLES [facility] [place] [address] * Magnesium (10/04/2024 11:50 PM EST) [facility] Magnesium 0.89 0.69 - 1.07 mMol/L 10/05/2024 12:35 AM [facility] Blood VENOUS BLOOD SPECIMEN / Unknown Venipuncture / Unknown 10/04/2024 11:50 PM EST 10/05/2024 12:03 AM EST Hayley Torres MD CHEMISTRY ORDERABLES Performing Organization Address City/[facility]/ZIP Co de Phone Number [facility] [place] [address] * POC, GLUCOSE (10/04/2024 11:36 PM EST) [facility] Signature Glucometer, POC 121 65 - 199 mg/dL 10/04/2024 11:[address] [facility] Comment:Supplemental ranges: <140 mg/dL before meals <180 mg/dL all other times of the day. Blood CAPILLARY BLOOD / Unknown 10/04/2024 11:36 PM EST 10/04/2024 11:36 PM EST Hayley Torres MD POINT OF CARE TEST O RDERABLES [facility] [place] [address] * POC, GLUCOSE (10/04/2024 7:32 PM EST) Glucometer, POC 163 65 - 199 mg/dL 10/04/2024 7:[address] [facility] Comment:Supplemental ranges: <140 mg/dL before meals <180 mg/dL all other times of the day. Blood CAPILLARY BLOOD / Unknown 10/04/2024 7:32 PM EST 10/04/2024 7:32 PM EST Hayley Torres MD POINT OF CARE TEST O RDERABLES Performing Organization Address [facility] Co de Phone Number [facility] [place] [address] * EKG 12 Lead (10/04/2024 7:14 PM EST) Ventricular rate 81 BPM MUSE SYSTEM Atrial Rate 81 BPM MUSE SYSTEM P-R Interval 174 ms MUSE SYSTEM QRS Duration 112 ms MUSE SYSTEM Q-T Interval 422 ms MUSE SYSTEM QTC Calculated (Bezet) 490 ms MUSE SYSTEM Calculated P [place] 34 degrees MUSE SYSTEM Calculated R [place] 11 degrees MUSE SYSTEM Calculated T [place] 59 degrees MUSE SYSTEM INTERPRETATION Normal sinus rhythm Cannot rule out Inferior infarct , age undetermined Nonspecific T wave abnormality Borderline ECG When compared with ECG of 29-MAY-2024 14:51, Nonspecific T wave abnormality now evident in Lateral leads Confirmed by MD Robert, Deandre Guadarrama ([id number]) on 10/05/2024 3:35:42 PM MUSE SYSTEM 10/04/2024 7:14 PM EST 10/05/2024 3:35 PM EST Hayley Torres MD ECG ORDERABLES Performing Organization Address [facility] Co de Phone Number MUSE SYSTEM * POC, GLUCOSE (10/04/2024 5:07 PM EST) Glucometer, POC 95 65 - 199 mg/dL 10/04/2024 5:[address] [facility] Comment:Supplemental ranges: <140 mg/dL before meals <180 mg/dL all other times of the day. Blood CAPILLARY BLOOD / Unknown 10/04/2024 5:07 PM EST 10/04/2024 5:07 PM EST Hayley Torres MD POINT OF CARE TEST O RDERABLES Performing Organization Address City/[facility]/ZIP Co de Phone Number [facility] [place] [address] * POC, GLUCOSE (10/04/2024 4:49 PM EST) Glucometer, POC 70 65 - 199 mg/dL 10/04/2024 4:[address] [facility] Comment:Supplemental ranges: <140 mg/dL before meals <180 mg/dL all other times of the day. Blood CAPILLARY BLOOD / Unknown 10/04/2024 4:49 PM EST 10/04/2024 4:50 PM EST Hayley Torres MD POINT OF CARE TEST O GILDA Performing Organization Address [facility] Co de Phone Number [facility] [place] [address] * POC, GLUCOSE (10/04/2024 11:49 AM EST) Glucometer, POC 93 65 - 199 mg/dL 10/04/2024 11:[address] [facility] Comment:Supplemental ranges: <140 mg/dL before meals <180 mg/dL all other times of the day. Blood CAPILLARY BLOOD / Unknown 10/04/2024 11:49 AM EST 10/04/2024 11:49 AM EST Hayley Torres MD POINT OF CARE TEST O GILDA Performing Organization Address City/[facility]/ZIP Co de Phone Number [facility] [place] [address] * Vancomycin, trough (10/04/2024 7:53 AM EST) Vancomycin, Trough 19.8 10.0 - 20.0 mg/L 10/04/2024 9:[address] [facility] Comment: Varies according to infection source. Blood VENOUS BLOOD SPECIMEN / Unknown Venipuncture / Unknown 10/04/2024 7:53 AM EST 10/04/2024 8:11 AM EST Hayley Torres MD CHEMISTRY ORDERABLES Performing Organization Address [facility] Co de Phone Number [facility] [place] [address] * POC, GLUCOSE (10/04/2024 7:51 AM EST) Glucometer, POC 105 65 - 199 mg/dL 10/04/2024 7:[address] [facility] Comment:Supplemental ranges: <140 mg/dL before meals <180 mg/dL all other times of the day. Blood CAPILLARY BLOOD / Unknown 10/04/2024 7:51 AM EST 10/04/2024 7:52 AM EST Hayley Torres MD POINT OF CARE TEST O RDERABLES Performing Organization Address [facility] de Phone Number [facility] [place] [address] * POC, GLUCOSE (10/04/2024 3:53 AM EST) Glucometer, POC 90 65 - 199 mg/dL 10/04/2024 3:[address] [facility] Comment:Supplemental ranges: <140 mg/dL before meals <180 mg/dL all other times of the day. Blood CAPILLARY BLOOD / Unknown 10/04/2024 3:53 AM EST 10/04/2024 3:53 AM EST Hayley Torres MD POINT OF CARE TEST O GILDA Performing Organization Address [facility] Co de Phone Number [facility] [place] [address] * (ABNORMAL) CBC (with Diff) (10/04/2024 12:08 AM EST) White Blood Cell 12.58(H) 4.00 - 9.50 x10(3)/mc L 10/04/2024 12:51 AM [facility] Red Blood Cell 3.28(L) 4.58 - 5.54 x10(6)/mc L 10/04/2024 12:51 AM [facility] Hemoglobin 9.4(L) 13.7 - 16.5 g/dL 10/04/2024 12:51 AM [facility] Hematocrit 28.8(L) 40.5 - 48.5 % 10/04/2024 12:51 AM [facility] Mean Cell Volume 87.8 82.9 - 93.1 fL 10/04/2024 12:51 AM [facility] Mean Cell Hemoglobin 28.7 27.5 - 32.1 pg 10/04/2024 12:51 AM [facility] Mean Cell Hemoglobin Concentration 32.6 32.0 - 35.7 g/dL 10/04/2024 12:51 AM [facility] Platelet 670(H) 145 - 357 x10(3)/mc L 10/04/2024 12:51 AM [facility] Mean Platelet Volume 9.1 7.6 - 12.9 fL 10/04/2024 12:51 AM [facility] RDW Standard Deviation 44.8 36.0 - 45.0 fL 10/04/2024 12:51 AM [facility] RDW coefficient of variation 13.9(H) 11.4 - 13.8 % 10/04/2024 12:51 AM [facility] NRBC% auto 0.0 % 10/04/2024 12:51 AM [facility] NRBC Absolute <0.01 <0.01 x10(3)/mc L 10/04/2024 12:51 AM [facility] Neutrophil % 60.3 % 10/04/2024 12:51 AM [facility] Neutrophil Absolute (ANC) - Automated 7.57(H) 1.70 - 6.10 x10(3)/mc L 10/04/2024 12:51 AM [facility] Lymph % 27.4 % 10/04/2024 12:51 AM [facility] Lymph Absolute 3.45(H) 0.90 - 3.20 x10(3)/mc L 10/04/2024 12:51 AM [facility] Monocyte % 5.4 % 10/04/2024 12:51 AM [facility] Monocyte Absolute 0.68 0.30 - 0.90 x10(3)/mc L 10/04/2024 12:51 AM [facility] Eos % 1.5 % 10/04/2024 12:51 AM [facility] Eos Absolute 0.19 0.00 - 0.40 x10(3)/mc L 10/04/2024 12:51 AM [facility] Basophil % 0.6 % 10/04/2024 12:51 AM [facility] Baso Absolute 0.08 0.00 - 0.10 x10(3)/mc L 10/04/2024 12:51 AM [facility] Immature Gran % 4.8 % 12:51 AM [facility] Immature Gran Absolute 0.61(H) 0.00 - 0.04 x10(3)/mc L 10/04/2024 12:51 AM [facility] Blood VENOUS BLOOD SPECIMEN / Unknown Venipuncture / Unknown 10/04/2024 12:08 AM EST 10/04/2024 12:15 AM EST Hayley Torres MD HEMATOLOGY ORDERABLE S [facility] [place] [address] * (ABNORMAL) Basic Metabolic Panel (10/04/2024 12:08 AM EST) Glucose 135 65 - 199 mg/dL 10/04/2024 12:53 AM [facility] Comment:Glucose Concentratio n >=200 mg/dL plus symptoms is consistent with Diabetes Mellitus. Blood Urea Nitrogen 19 10 - 20 mg/dL 10/04/2024 12:53 AM [facility] Creatinine 0.56(L) 0.80 - 1.50 mg/dL 10/04/2024 12:53 AM [facility] Sodium 138 135 - 145 mMol/L 10/04/2024 12:53 AM [facility] Potassium 4.4 3.5 - 5.0 mMol/L 10/04/2024 12:53 AM [facility] Chloride 105 98 - 107 mMol/L 10/04/2024 12:53 AM [facility] Carbon Dioxide 24 22 - 31 mMol/L 10/04/2024 12:53 AM [facility] Anion Gap 9 5 - 15 mMol/L 10/04/2024 12:53 AM [facility] Calcium 8.7 8.5 - 10.5 mg/dL 10/04/2024 12:53 AM [facility] Est Glomerular Filtration Rate - Male 120 mL/min/1. 73 m?? 10/04/2024 12:53 AM [facility] Comment: This patient's estimated [...] AM EST Hayley Torres MD CHEMISTRY ORDERABLES [facility] [place] [address] * Phosphorus (10/04/2024 12:08 AM EST) Phosphorus 3.7 2.5 - 4.5 mg/dL 10/04/2024 12:[address] [facility] Blood VENOUS BLOOD SPECIMEN / Unknown Venipuncture / Unknown 10/04/2024 12:08 AM EST 10/04/2024 12:15 AM EST Hayley Torres MD CHEMISTRY ORDERABLES Performing Organization Address City/[facility]/ZIP Co de Phone Number [facility] [place] [address] * Magnesium (10/04/2024 12:08 AM EST) Magnesium 0.89 0.69 - 1.07 mMol/L 10/04/2024 12:[address] [facility] Blood VENOUS BLOOD SPECIMEN / Unknown Venipuncture / Unknown 10/04/2024 12:08 AM EST 10/04/2024 12:15 AM EST Hayley Torres MD CHEMISTRY ORDERABLES Performing Organization Address [facility]/ZIP Co de Phone Number [facility] [place] [address] * POC, GLUCOSE (10/04/2024 12:01 AM EST) Glucometer, POC 132 65 - 199 mg/dL 10/04/2024 12:[address] [facility] Comment:Supplemental ranges: <140 mg/dL before meals <180 mg/dL all other times of the day. Blood CAPILLARY BLOOD / Unknown 10/04/2024 12:01 AM EST 10/04/2024 12:02 AM EST Hayley Torres MD POINT OF CARE TEST O RDERABLES Performing Organization Address City/[facility]/ZIP Co de Phone Number [facility] [place] [address] * POC, GLUCOSE (10/03/2024 7:56 PM EST) Glucometer, POC 123 65 - 199 mg/dL 10/03/2024 7:[address] [facility] Comment:Supplemental ranges: <140 mg/dL before meals <180 mg/dL all other times of the day. Blood CAPILLARY BLOOD / Unknown 10/03/2024 7:56 PM EST 10/03/2024 7:57 PM EST Hayley Torres MD POINT OF CARE TEST O RDERAHERNANDEZ Performing Organization Address City/[facility]/ZIP Co de Phone Number [facility] [place] [address] * POC, GLUCOSE (10/03/2024 5:29 PM EST) Glucometer, POC 182 65 - 199 mg/dL 10/03/2024 5:[address] [facility] Comment:Supplemental ranges: <140 mg/dL before meals <180 mg/dL all other times of the day. Blood CAPILLARY BLOOD / Unknown 10/03/2024 5:29 PM EST 10/03/2024 5:30 PM EST Hayley Torres MD POINT OF CARE TEST O GILDA Performing Organization Address City/[facility]/ZIP Co de Phone Number [facility] [place] [address] * POC, GLUCOSE (10/03/2024 12:54 PM EST) Glucometer, POC 128 65 - 199 mg/dL 10/03/2024 12:[address] [facility] Comment:Supplemental ranges: <140 mg/dL before meals <180 mg/dL all other times of the day. Blood CAPILLARY BLOOD / Unknown 10/03/2024 12:54 PM EST 10/03/2024 12:54 PM EST Hayley Torres MD POINT OF CARE TEST O GILDA [facility] [place] [address] * POC, GLUCOSE (10/03/2024 7:59 AM EST) Glucometer, POC 115 65 - 199 mg/dL 10/03/2024 7:[address] [facility] Comment:Supplemental ranges: <140 mg/dL before meals <180 mg/dL all other times of the day. Blood CAPILLARY BLOOD / Unknown 10/03/2024 7:59 AM EST 10/03/2024 7:59 AM EST Hayley Torres MD POINT OF CARE TEST O GILDA Performing Organization Address [facility] de Phone Number [facility] [place] [address] * POC, GLUCOSE (10/03/2024 5:32 AM EST) Glucometer, POC 119 65 - 199 mg/dL 10/03/2024 5:[address] [facility] Comment:Supplemental ranges: <140 mg/dL before meals <180 mg/dL all other times of the day. Blood CAPILLARY BLOOD / Unknown 10/03/2024 5:32 AM EST 10/03/2024 5:32 AM EST Hayley Torres MD POINT OF CARE TEST O GILDA Performing Organization Address [facility] Co de Phone Number [facility] [place] [address] * POC, GLUCOSE (10/03/2024 4:16 AM EST) Glucometer, POC 152 65 - 199 mg/dL 10/03/2024 4:[address] [facility] Comment:Supplemental ranges: <140 mg/dL before meals <180 mg/dL all other times of the day. Blood CAPILLARY BLOOD / Unknown 10/03/2024 4:16 AM EST 10/03/2024 4:17 AM EST Hayley Torres MD POINT OF CARE TEST O RDTYESHA [facility] [place] [address] * (ABNORMAL) POC, GLUCOSE (10/03/2024 2:02 AM EST) Glucometer, POC 225(H) 65 - 199 mg/dL 10/03/2024 2:[address] [facility] Comment:Supplemental ranges: <140 mg/dL before meals <180 mg/dL all other times of the day. Blood CAPILLARY BLOOD / Unknown 10/03/2024 2:02 AM EST 10/03/2024 2:02 AM EST Hayley Torres MD POINT OF CARE TEST O GILDA [facility] [place] [address] * (ABNORMAL) CBC (with Diff) (10/03/2024 12:27 AM EST) [facility] White Blood Cell 15.33(H) 4.00 - 9.50 x10(3)/mc L 10/03/2024 12:51 AM [facility] Red Blood Cell 3.59(L) 4.58 - 5.54 x10(6)/mc L 10/03/2024 12:51 AM [facility] Hemoglobin 10.4(L) 13.7 - 16.5 g/dL 10/03/2024 12:51 AM [facility] Hematocrit 31.2(L) 40.5 - 48.5 % 10/03/2024 12:51 AM [facility] Mean Cell Volume 86.9 82.9 - 93.1 fL 10/03/2024 12:51 AM [facility] Mean Cell Hemoglobin 29.0 27.5 - 32.1 pg 10/03/2024 12:51 AM [facility] Mean Cell Hemoglobin Concentration 33.3 32.0 - 35.7 g/dL 10/03/2024 12:51 AM [facility] Platelet 693(H) 145 - 357 x10(3)/mc L 10/03/2024 12:51 AM [facility] Mean Platelet Volume 9.2 7.6 - 12.9 fL 10/03/2024 12:51 AM [facility] RDW Standard Deviation 42.4 36.0 - 45.0 fL 10/03/2024 12:51 AM [facility] RDW coefficient of variation 13.6 11.4 - 13.8 % 10/03/2024 12:51 AM [facility] NRBC% auto 0.0 % 10/03/2024 12:51 AM [facility] NRBC Absolute <0.01 <0.01 x10(3)/mc L 10/03/2024 12:51 AM [facility] Neutrophil % 77.1 % 10/03/2024 12:51 AM [facility] Neutrophil Absolute (ANC) - Automated 11.83(H) 1.70 - 6.10 x10(3)/mc L 10/03/2024 12:51 AM [facility] Lymph % 13.4 % 10/03/2024 12:51 AM [facility] Lymph Absolute 2.05 0.90 - 3.20 x10(3)/mc L 10/03/2024 12:51 AM [facility] Monocyte % 2.9 % 10/03/2024 12:51 AM [facility] Monocyte Absolute 0.45 0.30 - 0.90 x10(3)/mc L 10/03/2024 12:51 AM [facility] Eos % 0.5 % 10/03/2024 12:51 AM [facility] Eos Absolute 0.07 0.00 - 0.40 x10(3)/mc L 10/03/2024 12:51 AM [facility] Basophil % 0.4 % 10/03/2024 12:51 AM [facility] Baso Absolute 0.06 0.00 - 0.10 x10(3)/mc L 10/03/2024 12:51 AM [facility] Immature Gran % 5.7 % 12:51 AM [facility] Immature Gran Absolute 0.87(H) 0.00 - 0.04 x10(3)/mc L 10/03/2024 12:51 AM [facility] Blood VENOUS BLOOD SPECIMEN / Unknown Venipuncture / Unknown 10/03/2024 12:27 AM EST 10/03/2024 12:47 AM EST Hayley Torres MD HEMATOLOGY ORDERABLE S Performing Organization Address City/State/[facility] Co de Phone Number [facility] [place] [address] * (ABNORMAL) Basic Metabolic Panel (10/03/2024 12:27 AM EST) Glucose 208(H) 65 - 199 mg/dL 10/03/2024 1:14 AM [facility] Comment:Glucose Concentratio n >=200 mg/dL plus symptoms is consistent with Diabetes Mellitus. Blood Urea Nitrogen 15 10 - 20 mg/dL 10/03/2024 1:14 AM [facility] Creatinine 0.51(L) 0.80 - 1.50 mg/dL 10/03/2024 1:14 AM [facility] Sodium 136 135 - 145 mMol/L 10/03/2024 1:14 AM [facility] Potassium 4.1 3.5 - 5.0 mMol/L 10/03/2024 1:14 AM [facility] Chloride 103 98 - 107 mMol/L 10/03/2024 1:14 AM [facility] Carbon Dioxide 20(L) 22 - 31 mMol/L 10/03/2024 1:14 AM [facility] Anion Gap 13 5 - 15 mMol/L 10/03/2024 1:[address] [facility] Calcium 8.4(L) 8.5 - 10.5 mg/dL 10/03/2024 1:[address] [facility] Est Glomerular Filtration Rate - Male 124 mL/min/1. 73 m?? 10/03/2024 1:[address] [facility] Comment: This patient's [...] Torres MD CHEMISTRY ORDERABLES Performing Organization Address City/[facility]/ZIP Co de Phone Number [facility] [place] [address] * Phosphorus (10/03/2024 12:27 AM EST) Phosphorus 3.5 2.5 - 4.5 mg/dL 10/03/2024 1:[address] [facility] Blood VENOUS BLOOD SPECIMEN / Unknown Venipuncture / Unknown 10/03/2024 12:27 AM EST 10/03/2024 12:47 AM EST Hayley Torres MD CHEMISTRY ORDERABLES [facility] [place] [address] * Magnesium (10/03/2024 12:27 AM EST) Magnesium 0.83 0.69 - 1.07 mMol/L 10/03/2024 1:[address] [facility] Blood VENOUS BLOOD SPECIMEN / Unknown Venipuncture / Unknown 10/03/2024 12:27 AM EST 10/03/2024 12:47 AM EST Hayley Torres MD CHEMISTRY ORDERABLES [facility] [place] [address] * (ABNORMAL) POC, GLUCOSE (10/03/2024 12:13 AM EST) Glucometer, POC 255(H) 65 - 199 mg/dL 10/03/2024 12:[address] [facility] Comment:Supplemental ranges: <140 mg/dL before meals <180 mg/dL all other times of the day. Blood CAPILLARY BLOOD / Unknown 10/03/2024 12:13 AM EST 10/03/2024 12:14 AM EST Hayley Torres MD POINT OF CARE TEST O RDERABLES Performing Organization Address City/[facility]/ZIP Co de Phone Number [facility] [place] [address] * POC, GLUCOSE (10/02/2024 8:17 PM EST) Glucometer, POC 177 65 - 199 mg/dL 10/02/2024 8:[address] [facility] Comment:Supplemental ranges: <140 mg/dL before meals <180 mg/dL all other times of the day. Blood CAPILLARY BLOOD / Unknown 10/02/2024 8:17 PM EST 10/02/2024 8:17 PM EST Hayley Torres MD POINT OF CARE TEST O RDERABLES [facility] [place] [address] * POC, GLUCOSE (10/02/2024 6:22 PM EST) Glucometer, POC 172 65 - 199 mg/dL 10/02/2024 6:[address] [facility] Comment:Supplemental ranges: <140 mg/dL before meals <180 mg/dL all other times of the day. Blood CAPILLARY BLOOD / Unknown 10/02/2024 6:22 PM EST 10/02/2024 6:22 PM EST Hayley oTrres MD POINT OF CARE TEST O GILDA Performing Organization Address City/[facility]/ZIP Co de Phone Number [facility] [place] [address] * POC, GLUCOSE (10/02/2024 5:01 PM EST) Glucometer, POC 104 65 - 199 mg/dL 10/02/2024 5:[address] [facility] Comment:Supplemental ranges: <140 mg/dL before meals <180 mg/dL all other times of the day. Blood CAPILLARY BLOOD / Unknown 10/02/2024 5:01 PM EST 10/02/2024 5:01 PM EST Hayley Torres MD POINT OF CARE TEST O GILDA Performing Organization Address City/[facility]/ZIP Co de Phone Number [facility] [place] [address] * POC, GLUCOSE (10/02/2024 3:05 PM EST) Glucometer, POC 113 65 - 199 mg/dL 10/02/2024 3:[address] [facility] Comment:Supplemental ranges: <140 mg/dL before meals <180 mg/dL all other times of the day. Blood CAPILLARY BLOOD / Unknown 10/02/2024 3:05 PM EST 10/02/2024 3:06 PM EST Hayley Torres MD POINT OF CARE TEST O GILDA [facility] [place] [address] * POC, GLUCOSE (10/02/2024 11:12 AM EST) Glucometer, POC 146 65 - 199 mg/dL 10/02/2024 11:[address] [facility] Comment:Supplemental ranges: <140 mg/dL before meals <180 mg/dL all other times of the day. Blood CAPILLARY BLOOD / Unknown 10/02/2024 11:12 AM EST 10/02/2024 11:12 AM EST Hayley Torres MD POINT OF CARE TEST O GILDA Performing Organization Address City/[facility]/ZIP Co de Phone Number [facility] [place] [address] * POC, GLUCOSE (10/02/2024 8:12 AM EST) Glucometer, POC 131 65 - 199 mg/dL 10/02/2024 8:[address] [facility] Comment:Supplemental ranges: <140 mg/dL before meals <180 mg/dL all other times of the day. Blood CAPILLARY BLOOD / Unknown 10/02/2024 8:12 AM EST 10/02/2024 8:12 AM EST Hayley Torres MD POINT OF CARE TEST O GILDA [facility] [place] [address] * POC, GLUCOSE (10/02/2024 4:19 AM EST) Glucometer, POC 131 65 - 199 mg/dL 10/02/2024 4:[address] [facility] Comment:Supplemental ranges: <140 mg/dL before meals <180 mg/dL all other times of the day. Blood CAPILLARY BLOOD / Unknown 10/02/2024 4:19 AM EST 10/02/2024 4:19 AM EST Hayley Trores MD POINT OF CARE TEST O RDERABLES [facility] [place] [address] * Phosphorus (10/02/2024 12:41 AM EST) Phosphorus 4.1 2.5 - 4.5 mg/dL 10/02/2024 1:[address] [facility] Blood VENOUS BLOOD SPECIMEN / Unknown Venipuncture / Unknown 10/02/2024 12:41 AM EST 10/02/2024 12:45 AM EST Hayley Torres MD CHEMISTRY ORDERABLES Performing Organization Address City/[facility]/ZIP Co de Phone Number [facility] [place] [address] * Magnesium (10/02/2024 12:41 AM EST) Pathologist [facility] Magnesium 0.85 0.69 - 1.07 mMol/L 10/02/2024 1:[address] [facility] Blood VENOUS BLOOD SPECIMEN / Unknown Venipuncture / Unknown 10/02/2024 12:41 AM EST 10/02/2024 12:45 AM EST Hayley Torres MD CHEMISTRY ORDERABLES [facility] [place] [address] * (ABNORMAL) Basic Metabolic Panel (10/02/2024 12:41 AM EST) Glucose 113 65 - 199 mg/dL 10/02/2024 1:[address] [facility] Comment:Glucose Concentratio n >=200 mg/dL plus symptoms is consistent with Diabetes Mellitus. Blood Urea Nitrogen 11 10 - 20 mg/dL 10/02/2024 1:[address] [facility] Creatinine 0.49(L) 0.80 - 1.50 mg/dL 10/02/2024 1:[address] [facility] Sodium 138 135 - 145 mMol/L 10/02/2024 1:21 AM [facility] Potassium 3.9 3.5 - 5.0 mMol/L 10/02/2024 1:21 AM [facility] Chloride 105 98 - 107 mMol/L 10/02/2024 1:21 AM [facility] Carbon Dioxide 23 22 - 31 mMol/L 10/02/2024 1:21 AM [facility] Anion Gap 10 5 - 15 mMol/L 10/02/2024 1:21 AM [facility] Calcium 8.2(L) 8.5 - 10.5 mg/dL 10/02/2024 1:21 AM [facility] Est Glomerular Filtration Rate - Male 125 mL/min/1. 73 m?? 10/02/2024 1:21 AM [facility] Comment: This patient's estimated [...] AM EST Hayley Torres MD CHEMISTRY ORDERABLES [facility] [place] [address] * (ABNORMAL) CBC (with Diff) (10/02/2024 12:41 AM EST) White Blood Cell 10.93(H) 4.00 - 9.50 x10(3)/mc L 10/02/2024 1:04 AM [facility] Red Blood Cell 3.30(L) 4.58 - 5.54 x10(6)/mc L 10/02/2024 1:04 AM [facility] Hemoglobin 9.6(L) 13.7 - 16.5 g/dL 10/02/2024 1:04 AM [facility] Hematocrit 28.6(L) 40.5 - 48.5 % 10/02/2024 1:04 AM [facility] Mean Cell Volume 86.7 82.9 - 93.1 fL 10/02/2024 1:04 AM [facility] Mean Cell Hemoglobin 29.1 27.5 - 32.1 pg 10/02/2024 1:04 AM [facility] Mean Cell Hemoglobin Concentration 33.6 32.0 - 35.7 g/dL 10/02/2024 1:04 AM [facility] Platelet 546(H) 145 - 357 x10(3)/mc L 10/02/2024 1:04 AM [facility] Mean Platelet Volume 9.0 7.6 - 12.9 fL 10/02/2024 1:04 AM [facility] RDW Standard Deviation 42.7 36.0 - 45.0 fL 10/02/2024 1:04 AM [facility] RDW coefficient of variation 13.3 11.4 - 13.8 % 10/02/2024 1:04 AM [facility] NRBC% auto 0.0 % 10/02/2024 1:04 AM [facility] NRBC Absolute <0.01 <0.01 x10(3)/mc L 10/02/2024 1:04 AM [facility] Neutrophil % 58.4 % 10/02/2024 1:04 AM [facility] Neutrophil Absolute (ANC) - Automated 6.38(H) 1.70 - 6.10 x10(3)/mc L 10/02/2024 1:04 AM [facility] Lymph % 23.9 % 10/02/2024 1:04 AM [facility] Lymph Absolute 2.61 0.90 - 3.20 x10(3)/mc L 10/02/2024 1:04 AM [facility] Monocyte % 5.6 % 10/02/2024 1:04 AM [facility] Monocyte Absolute 0.61 0.30 - 0.90 x10(3)/mc L 10/02/2024 1:04 AM [facility] Eos % 1.6 % 10/02/2024 1:04 AM [facility] Eos Absolute 0.18 0.00 - 0.40 x10(3)/mc L 10/02/2024 1:04 AM [facility] Basophil % 0.8 % 10/02/2024 1:04 AM [facility] Baso Absolute 0.09 0.00 - 0.10 x10(3)/mc L 10/02/2024 1:04 AM [facility] Immature Gran % 9.7 % 1:04 AM [facility] Immature Gran Absolute 1.06(H) 0.00 - 0.04 x10(3)/mc L 10/02/2024 1:04 AM [facility] Blood VENOUS BLOOD SPECIMEN / Unknown Venipuncture / Unknown 10/02/2024 12:41 AM EST 10/02/2024 12:45 AM EST Hayley Torres MD HEMATOLOGY ORDERABLE S [facility] [place] [address] * POC, GLUCOSE (10/02/2024 12:40 AM EST) Glucometer, POC 116 65 - 199 mg/dL 10/02/2024 12:41 AM [facility] Comment:Supplemental ranges: <140 mg/dL before meals <180 mg/dL all other times of the day. Blood CAPILLARY BLOOD / Unknown 10/02/2024 12:40 AM EST 10/02/2024 12:41 AM EST Hayley Torres MD POINT OF CARE TEST O GILDA [facility] [place] [address] * POC, GLUCOSE (10/01/2024 8:11 PM EST) Glucometer, POC 123 65 - 199 mg/dL 10/01/2024 8:[address] [facility] Comment:Supplemental ranges: <140 mg/dL before meals <180 mg/dL all other times of the day. Blood CAPILLARY BLOOD / Unknown 10/01/2024 8:11 PM EST 10/01/2024 8:11 PM EST Hayley Torres MD POINT OF CARE TEST O GILDA Performing Organization Address City/[facility]/ZIP Co de Phone Number [facility] [place] [address] * POC, GLUCOSE (10/01/2024 6:00 PM EST) Glucometer, POC 112 65 - 199 mg/dL 10/01/2024 6:[address] [facility] Comment:Supplemental ranges: <140 mg/dL before meals <180 mg/dL all other times of the day. Blood CAPILLARY BLOOD / Unknown 10/01/2024 6:00 PM EST 10/01/2024 6:00 PM EST Hayley Torres MD POINT OF CARE TEST O GILDA [facility] [place] [address] * POC, GLUCOSE (10/01/2024 3:53 PM EST) Glucometer, POC 97 65 - 199 mg/dL 10/01/2024 3:[address] [facility] Comment:Supplemental ranges: <140 mg/dL before meals <180 mg/dL all other times of the day. Blood CAPILLARY BLOOD / Unknown 10/01/2024 3:53 PM EST 10/01/2024 3:53 PM EST Hayley Torres MD POINT OF CARE TEST O GILDA Performing Organization Address City/[facility]/ZIP Co de Phone Number [facility] [place] [address] * POC, GLUCOSE (10/01/2024 2:25 PM EST) Glucometer, POC 117 65 - 199 mg/dL 10/01/2024 2:[address] [facility] Comment:Supplemental ranges: <140 mg/dL before meals <180 mg/dL all other times of the day. Blood CAPILLARY BLOOD / Unknown 10/01/2024 2:25 PM EST 10/01/2024 2:25 PM EST Hayley Torres MD POINT OF CARE TEST O GILDA Performing Organization Address [facility] Co de Phone Number [facility] [place] [address] * POC, GLUCOSE (10/01/2024 11:43 AM EST) Glucometer, POC 174 65 - 199 mg/dL 10/01/2024 11:[address] [facility] Comment:Supplemental ranges: <140 mg/dL before meals <180 mg/dL all other times of the day. Blood CAPILLARY BLOOD / Unknown 10/01/2024 11:43 AM EST 10/01/2024 11:43 AM EST Hayley Torres MD POINT OF CARE TEST O GILDA Performing Organization Address City/[facility]/ZIP Co de Phone Number [facility] [place] [address] * POC, GLUCOSE (10/01/2024 9:43 AM EST) Glucometer, POC 191 65 - 199 mg/dL 10/01/2024 9:[address] [facility] Comment:Supplemental ranges: <140 mg/dL before meals <180 mg/dL all other times of the day. Blood CAPILLARY BLOOD / Unknown 10/01/2024 9:43 AM EST 10/01/2024 9:43 AM EST Hayley Torres MD POINT OF CARE TEST O DIMITRIERAHERNANDEZ Performing Organization Address City/[facility]/ZIP Co de Phone Number [facility] [place] [address] * POC, GLUCOSE (10/01/2024 7:48 AM EST) Glucometer, POC 151 65 - 199 mg/dL 10/01/2024 7:[address] [facility] Comment:Supplemental ranges: <140 mg/dL before meals <180 mg/dL all other times of the day. Blood CAPILLARY BLOOD / Unknown 10/01/2024 7:48 AM EST 10/01/2024 7:48 AM EST Hayley Torres MD POINT OF CARE TEST O GILDA Performing Organization Address City/[facility]/ZIP Co de Phone Number [facility] [place] [address] * POC, GLUCOSE (10/01/2024 4:25 AM EST) Glucometer, POC 133 65 - 199 mg/dL 10/01/2024 4:[address] [facility] Comment:Supplemental ranges: <140 mg/dL before meals <180 mg/dL all other times of the day. Blood CAPILLARY BLOOD / Unknown 10/01/2024 4:25 AM EST 10/01/2024 4:26 AM EST Hayley Torres MD POINT OF CARE TEST O GILDA [facility] [place] [address] * Phosphorus (10/01/2024 2:02 AM EST) Pathologist [facility] Phosphorus 3.9 2.5 - 4.5 mg/dL 10/01/2024 7:[address] [facility] Blood VENOUS BLOOD SPECIMEN / Unknown Venipuncture / Unknown 10/01/2024 2:02 AM EST 10/01/2024 2:10 AM EST Hayley Torres MD CHEMISTRY ORDERABLES Performing Organization Address City/[facility]/ZIP Co de Phone Number [facility] [place] [address] * (ABNORMAL) Scan, Peripheral Blood (10/01/2024 2:02 AM EST) [facility] RBC Morphology Abnormal 10/01/2024 2:[address] [facility] Platelet Estimate Increased(A) Normal 10/01 2:[address] [facility] Polychromasia Present 10/01/2024 2:[address] [facility] Platelet Clumps Present(A) (none) 2:[address] [facility] Blood VENOUS BLOOD SPECIMEN / Unknown Venipuncture / Unknown 10/01/2024 2:02 AM EST 10/01/2024 2:10 AM EST Hayley Torres MD HEMATOLOGY ORDERABLE S Performing Organization Address City/[facility]/ZIP Co de Phone Number [facility] [place] [address] * Magnesium (10/01/2024 2:02 AM EST) Pathologist [facility] Magnesium 0.79 0.69 - 1.07 mMol/L 10/01/2024 2:[address] [facility] Blood VENOUS BLOOD SPECIMEN / Unknown Venipuncture / Unknown 10/01/2024 2:02 AM EST 10/01/2024 2:10 AM EST Hayley Torres MD CHEMISTRY ORDERABLES [facility] [place] [address] * (ABNORMAL) Basic Metabolic Panel (10/01/2024 2:02 AM EST) Glucose 122 65 - 199 mg/dL 10/01/2024 2:41 AM [facility] Comment:Glucose Concentratio n >=200 mg/dL plus symptoms is consistent with Diabetes Mellitus. Blood Urea Nitrogen 10 10 - 20 mg/dL 10/01/2024 2:41 AM [facility] Creatinine 0.47(L) 0.80 - 1.50 mg/dL 10/01/2024 2:41 AM [facility] Sodium 138 135 - 145 mMol/L 10/01/2024 2:41 AM [facility] Potassium 3.9 3.5 - 5.0 mMol/L 10/01/2024 2:41 AM [facility] Chloride 105 98 - 107 mMol/L 10/01/2024 2:41 AM [facility] Carbon Dioxide 24 22 - 31 mMol/L 10/01/2024 2:41 AM [facility] Anion Gap 9 5 - 15 mMol/L 10/01/2024 2:41 AM [facility] Calcium 8.1(L) 8.5 - 10.5 mg/dL 10/01/2024 2:41 AM [facility] Est Glomerular Filtration Rate - Male 127 mL/min/1. 73 m?? 10/01/2024 2:41 AM [facility] Comment: This patient's estimated [...] AM EST Hayley Torres MD CHEMISTRY ORDERABLES [facility] [place] [address] * (ABNORMAL) CBC (with Diff) (10/01/2024 2:02 AM EST) White Blood Cell 10.15(H) 4.00 - 9.50 x10(3)/mc L 10/01/2024 2:55 AM [facility] Red Blood Cell 3.14(L) 4.58 - 5.54 x10(6)/mc L 10/01/2024 2:55 AM [facility] Hemoglobin 9.1(L) 13.7 - 16.5 g/dL 10/01/2024 2:55 AM [facility] Hematocrit 26.9(L) 40.5 - 48.5 % 10/01/2024 2:55 AM [facility] Mean Cell Volume 85.7 82.9 - 93.1 fL 10/01/2024 2:55 AM [facility] Mean Cell Hemoglobin 29.0 27.5 - 32.1 pg 10/01/2024 2:55 AM [facility] Mean Cell Hemoglobin Concentration 33.8 32.0 - 35.7 g/dL 10/01/2024 2:55 AM [facility] Platelet 444(H) 145 - 357 x10(3)/mc L 10/01/2024 2:55 AM [facility] Mean Platelet Volume 8.9 7.6 - 12.9 fL 10/01/2024 2:55 AM [facility] RDW Standard Deviation 41.2 36.0 - 45.0 fL 10/01/2024 2:55 AM [facility] RDW coefficient of variation 13.2 11.4 - 13.8 % 10/01/2024 2:55 AM [facility] NRBC% auto 0.0 % 10/01/2024 2:55 AM [facility] NRBC Absolute <0.01 <0.01 x10(3)/mc L 10/01/2024 2:55 AM [facility] Neutrophil % 59.5 % 10/01/2024 2:55 AM [facility] Comment:This is an appended report. These results have been appended to a previously preliminary verified report. Neutrophil Absolute (ANC) - Automated 6.05 1.70 - 6.10 x10(3)/mc L 10/01/2024 2:55 AM [facility] Comment:This is an appended report. These results have been appended to a previously preliminary verified report. Lymph % 22.3 % 10/01/2024 2:55 AM [facility] Comment:This is an appended report. These results have been appended to a previously preliminary verified report. Lymph Absolute 2.26 0.90 - 3.20 x10(3)/mc L 10/01/2024 2:55 AM [facility] Comment:This is an appended report. These results have been appended to a previously preliminary verified report. Monocyte % 7.4 % 10/01/2024 2:55 AM [facility] Comment:This is an appended report. These results have been appended to a previously preliminary verified report. Monocyte Absolute 0.75 0.30 - 0.90 x10(3)/mc L 10/01/2024 2:55 AM [facility] Comment:This is an appended report. These results have been appended to a previously preliminary verified report. Eos % 1.8 % 10/01/2024 2:55 AM [facility] Comment:This is an appended report. These results have been appended to a previously preliminary verified report. Eos Absolute 0.18 0.00 - 0.40 x10(3)/mc L 10/01/2024 2:[address] [facility] Comment:This is an appended report. These results have been appended to a previously preliminary verified report. Basophil % 0.6 % 10/01/2024 2:[address] [facility] Comment:This is an appended report. These results have been appended to a previously preliminary verified report. Baso Absolute 0.06 0.00 - 0.10 x10(3)/mc L 10/01/2024 2:[address] [facility] Comment:This is an appended report. These results have been appended to a previously preliminary verified report. Immature Gran % 8.4 % 2:[address] [facility] Comment:This is an appended report. These results have been appended to a previously preliminary verified report. Immature Gran Absolute 0.85(H) 0.00 - 0.04 x10(3)/mc L 10/01/2024 2:[address] [facility] Comment:This is an appended report. These results have been appended to a previously preliminary verified report. Blood VENOUS BLOOD SPECIMEN / Unknown Venipuncture / Unknown 10/01/2024 2:02 AM EST 10/01/2024 2:10 AM EST Hayley Torres MD HEMATOLOGY ORDERABLE S [facility] [place] [address] * POC, GLUCOSE (10/01/2024 12:32 AM EST) [facility] Signature Glucometer, POC 179 65 - 199 mg/dL 10/01/2024 12:[address] [facility] Comment:Supplemental ranges: <140 mg/dL before meals <180 mg/dL all other times of the day. Blood CAPILLARY BLOOD / Unknown 10/01/2024 12:32 AM EST 10/01/2024 12:32 AM EST Hayley Torres MD POINT OF CARE TEST O GILDA Performing Organization Address City/[facility] Co de Phone Number [facility] [place] [address] * POC, GLUCOSE (09/30/2024 7:37 PM EST) Glucometer, POC 140 65 - 199 mg/dL 09/30/2024 7:[address] [facility] Comment:Supplemental ranges: <140 mg/dL before meals <180 mg/dL all other times of the day. Blood CAPILLARY BLOOD / Unknown 09/30/2024 7:37 PM EST 09/30/2024 7:38 PM EST Hayley Torres MD POINT OF CARE TEST O GILDA Performing Organization Address [facility] Co de Phone Number [facility] [place] [address] * POC, GLUCOSE (09/30/2024 4:29 PM EST) Glucometer, POC 126 65 - 199 mg/dL 09/30/2024 4:[address] [facility] Comment:Supplemental ranges: <140 mg/dL before meals <180 mg/dL all other times of the day. Blood CAPILLARY BLOOD / Unknown 09/30/2024 4:29 PM EST 09/30/2024 4:30 PM EST Hayley Torres MD POINT OF CARE TEST O GILDA Performing Organization Address City/[facility] Co de Phone Number [facility] [place] [address] * POC, GLUCOSE (09/30/2024 12:16 PM EST) Glucometer, POC 107 65 - 199 mg/dL 09/30/2024 12:[address] [facility] Comment:Supplemental ranges: <140 mg/dL before meals <180 mg/dL all other times of the day. Blood CAPILLARY BLOOD / Unknown 09/30/2024 12:16 PM EST 09/30/2024 12:16 PM EST Hayley Torres MD POINT OF CARE TEST O RDERABLES Performing Organization Address City/[facility]/ZIP Co de Phone Number [facility] [place] [address] * POC, GLUCOSE (09/30/2024 7:58 AM EST) Glucometer, POC 92 65 - 199 mg/dL 09/30/2024 7:[address] [facility] Comment:Supplemental ranges: <140 mg/dL before meals <180 mg/dL all other times of the day. Blood CAPILLARY BLOOD / Unknown 09/30/2024 7:58 AM EST 09/30/2024 7:58 AM EST Hayley Torres MD POINT OF CARE TEST O RDTYESHA Performing Organization Address [facility]/ZIP Co de Phone Number [facility] [place] [address] * Potassium (09/30/2024 6:27 AM EST) Potassium 3.9 3.5 - 5.0 mMol/L 09/30/2024 7:[address] [facility] Blood VENOUS BLOOD SPECIMEN / Unknown Venipuncture / Unknown 09/30/2024 6:27 AM EST 09/30/2024 6:35 AM EST Hayley Torres MD CHEMISTRY ORDERABLES Performing Organization Address City/[facility]/ZIP Co de Phone Number [facility] [place] [address] * Vancomycin, trough (09/30/2024 6:27 AM EST) Vancomycin, Trough 14.1 10.0 - 20.0 mg/L 09/30/2024 7:[address] [facility] Comment: Varies according to infection source. Blood VENOUS BLOOD SPECIMEN / Unknown Venipuncture / Unknown 09/30/2024 6:27 AM EST 09/30/2024 6:35 AM EST Hayley Torres MD CHEMISTRY ORDERABLES Performing Organization Address City/[facility]/ZIP Co de Phone Number [facility] [place] [address] * POC, GLUCOSE (09/30/2024 3:51 AM EST) Glucometer, POC 134 65 - 199 mg/dL 09/30/2024 3:[address] [facility] Comment:Supplemental ranges: <140 mg/dL before meals <180 mg/dL all other times of the day. Blood CAPILLARY BLOOD / Unknown 09/30/2024 3:51 AM EST 09/30/2024 3:51 AM EST Hayley Torres MD POINT OF CARE TEST O RDERABLES Performing Organization Address City/[facility]/ZIP Co de Phone Number [facility] [place] [address] * Magnesium (09/29/2024 11:52 PM EST) Magnesium 0.85 0.69 - 1.07 mMol/L 09/30/2024 12:[address] [facility] Blood VENOUS BLOOD SPECIMEN / Unknown Venipuncture / Unknown 09/29/2024 11:52 PM EST 09/29/2024 11:58 PM EST Hayley Torres MD CHEMISTRY ORDERABLES Performing Organization Address City/[facility]/ZIP Co de Phone Number [facility] [place] [address] * (ABNORMAL) Basic Metabolic Panel (09/29/2024 11:52 PM EST) Glucose 133 65 - 199 mg/dL 09/30/2024 12:51 AM EST [facility] Comment:Glucose Concentratio n >=200 mg/dL plus symptoms is consistent with Diabetes Mellitus. Blood Urea Nitrogen 9(L) 10 - 20 mg/dL 09/30/2024 12:51 AM [facility] Creatinine 0.48(L) 0.80 - 1.50 mg/dL 09/30/2024 12:51 AM [facility] Sodium 138 135 - 145 mMol/L 09/30/2024 12:51 AM [facility] Potassium 3.4(L) 3.5 - 5.0 mMol/L 09/30/2024 12:51 AM [facility] Chloride 103 98 - 107 mMol/L 09/30/2024 12:51 AM [facility] Carbon Dioxide 24 22 - 31 mMol/L 09/30/2024 12:51 AM [facility] Anion Gap 11 5 - 15 mMol/L 09/30/2024 12:51 AM [facility] Calcium 8.1(L) 8.5 - 10.5 mg/dL 09/30/2024 12:51 AM [facility] Est Glomerular Filtration Rate - Male 126 mL/min/1. 73 m?? 09/30/2024 12:51 AM [facility] Comment: This patient's estimated [...] PM EST Hayley Torres MD CHEMISTRY ORDERABLES [facility] [place] [address] * (ABNORMAL) CBC (with Diff) (09/29/2024 11:52 PM EST) White Blood Cell 9.54(H) 4.00 - 9.50 x10(3)/mc L 09/30/2024 12:02 AM [facility] Red Blood Cell 3.04(L) 4.58 - 5.54 x10(6)/mc L 09/30/2024 12:02 AM [facility] Hemoglobin 8.7(L) 13.7 - 16.5 g/dL 09/30/2024 12:02 AM [facility] Hematocrit 25.8(L) 40.5 - 48.5 % 09/30/2024 12:02 AM [facility] Mean Cell Volume 84.9 82.9 - 93.1 fL 09/30/2024 12:02 AM [facility] Mean Cell Hemoglobin 28.6 27.5 - 32.1 pg 09/30/2024 12:02 AM [facility] Mean Cell Hemoglobin Concentration 33.7 32.0 - 35.7 g/dL 09/30/2024 12:02 AM [facility] Platelet 411(H) 145 - 357 x10(3)/mc L 09/30/2024 12:02 AM [facility] Mean Platelet Volume 8.8 7.6 - 12.9 fL 09/30/2024 12:02 AM [facility] RDW Standard Deviation 41.4 36.0 - 45.0 fL 09/30/2024 12:02 AM [facility] RDW coefficient of variation 13.4 11.4 - 13.8 % 09/30/2024 12:02 AM [facility] NRBC% auto 0.0 % 09/30/2024 12:02 AM [facility] NRBC Absolute <0.01 <0.01 x10(3)/mc L 09/30/2024 12:02 AM [facility] Neutrophil % 64.5 % 09/30/2024 12:02 AM [facility] Neutrophil Absolute (ANC) - Automated 6.16(H) 1.70 - 6.10 x10(3)/mc L 09/30/2024 12:02 AM [facility] Lymph % 23.1 % 09/30/2024 12:02 AM [facility] Lymph Absolute 2.20 0.90 - 3.20 x10(3)/mc L 09/30/2024 12:02 AM [facility] Monocyte % 8.0 % 09/30/2024 12:02 AM [facility] Monocyte Absolute 0.76 0.30 - 0.90 x10(3)/mc L 09/30/2024 12:02 AM [facility] Eos % 1.5 % 09/30/2024 12:02 AM [facility] Eos Absolute 0.14 0.00 - 0.40 x10(3)/mc L 09/30/2024 12:02 AM [facility] Basophil % 0.3 % 09/30/2024 12:02 AM [facility] Baso Absolute <0.04 0.00 - 0.10 x10(3)/mc L 09/30/2024 12:02 AM [facility] Immature Gran % 2.6 % 12:02 AM [facility] Immature Gran Absolute 0.25(H) 0.00 - 0.04 x10(3)/mc L 09/30/2024 12:02 AM [facility] Blood VENOUS BLOOD SPECIMEN / Unknown Venipuncture / Unknown 09/29/2024 11:52 PM EST 09/29/2024 11:58 PM EST Hayley Torres MD HEMATOLOGY ORDERABLE S [facility] [place] [address] * POC, GLUCOSE (09/29/2024 11:51 PM EST) Glucometer, POC 134 65 - 199 mg/dL 09/29/2024 11:[address] [facility] Comment:Supplemental ranges: <140 mg/dL before meals <180 mg/dL all other times of the day. Blood CAPILLARY BLOOD / Unknown 09/29/2024 11:51 PM EST 09/29/2024 11:51 PM EST Hayley Torres MD POINT OF CARE TEST O RDERABLES Performing Organization Address City/[facility]/ZIP Co de Phone Number [facility] [place] [address] * Blood culture (09/29/2024 9:24 PM EST) Blood Culture No growth at 120 hours 10/04/2024 11:[address] [facility] Blood VENOUS BLOOD SPECIMEN / Unknown Venipuncture / Unknown 09/29/2024 9:24 PM EST 09/29/2024 9:34 PM EST Hayley Torres MD MICROBIOLOGY - BLOOD ORDERABLES Performing Organization Address City/[facility]/ZIP Co de Phone Number [facility] [place] [address] * Blood culture (09/29/2024 9:24 PM EST) Blood Culture No growth at 120 hours 10/04/2024 11:[address] [facility] Blood VENOUS BLOOD SPECIMEN / Unknown Venipuncture / Unknown 09/29/2024 9:24 PM EST 09/29/2024 9:34 PM EST Marko Dickson MD MICROBIOLOGY - BLOOD ORDERABLES [facility] [place] [address] * (ABNORMAL) POC, GLUCOSE (09/29/2024 7:35 PM EST) Glucometer, POC 202(H) 65 - 199 mg/dL 09/29/2024 7:[address] [facility] Comment:Supplemental ranges: <140 mg/dL before meals <180 mg/dL all other times of the day. Blood CAPILLARY BLOOD / Unknown 09/29/2024 7:35 PM EST 09/29/2024 7:36 PM EST Hayley Torres MD POINT OF CARE TEST O GILDA Performing Organization Address City/[facility]/ZIP Co de Phone Number [facility] [place] [address] * POC, GLUCOSE (09/29/2024 6:48 PM EST) Glucometer, POC 161 65 - 199 mg/dL 09/29/2024 6:[address] [facility] Comment:Supplemental ranges: <140 mg/dL before meals <180 mg/dL all other times of the day. Blood CAPILLARY BLOOD / Unknown 09/29/2024 6:48 PM EST 09/29/2024 6:49 PM EST Hayley Torres MD POINT OF CARE TEST O GILDA Performing Organization Address City/[facility]/ZIP Co de Phone Number [facility] [place] [address] * POC, GLUCOSE (09/29/2024 4:06 PM EST) Glucometer, POC 122 65 - 199 mg/dL 09/29/2024 4:[address] [facility] Comment:Supplemental ranges: <140 mg/dL before meals <180 mg/dL all other times of the day. Blood CAPILLARY BLOOD / Unknown 09/29/2024 4:06 PM EST 09/29/2024 4:06 PM EST Hayley Torres MD POINT OF CARE TEST O RDERABLES Performing Organization Address [facility] Co de Phone Number [facility] [place] [address] * POC, GLUCOSE (09/29/2024 11:49 AM EST) Glucometer, POC 135 65 - 199 mg/dL 09/29/2024 11:[address] [facility] Comment:Supplemental ranges: <140 mg/dL before meals <180 mg/dL all other times of the day. Blood CAPILLARY BLOOD / Unknown 09/29/2024 11:49 AM EST 09/29/2024 11:50 AM EST Hayley Torres MD POINT OF CARE TEST O RDERAHERNANDEZ Performing Organization Address [facility] de Phone Number [facility] [place] [address] * (ABNORMAL) POC, GLUCOSE (09/29/2024 7:53 AM EST) Glucometer, POC 202(H) 65 - 199 mg/dL 09/29/2024 7:[address] [facility] Comment:Supplemental ranges: <140 mg/dL before meals <180 mg/dL all other times of the day. Blood CAPILLARY BLOOD / Unknown 09/29/2024 7:53 AM EST 09/29/2024 7:53 AM EST Hayley Torres MD POINT OF CARE TEST O RDERAHERNANDEZ Performing Organization Address [facility] Co de Phone Number [facility] [place] [address] * POC, GLUCOSE (09/29/2024 3:45 AM EST) Glucometer, POC 184 65 - 199 mg/dL 09/29/2024 3:[address] [facility] Comment:Supplemental ranges: <140 mg/dL before meals <180 mg/dL all other times of the day. Blood CAPILLARY BLOOD / Unknown 09/29/2024 3:45 AM EST 09/29/2024 3:46 AM EST Hayley Torres MD POINT OF CARE TEST O RDERABLES [facility] [place] [address] * (ABNORMAL) Hemoglobin A1c (09/28/2024 11:51 PM EST) Hemoglobin A1c 9.7(H) 4.3 - 5.6 % 09/29/2024 9:[address] [facility] Comment: Per ADA guidelines, without [...] red blood cell turnover may not be advertising account representative of glycemic control. Reference Interval: 4.3 - 5.6% 5.7 - 6.4%: Consistent with prediabetes >=6.5%: Consistent with diagnosis of diabetes mellitus Estimated Average Glucose 232 mg/dL 09/29/2024 9:[address] [facility] Blood VENOUS BLOOD SPECIMEN / Unknown Venipuncture / Unknown 09/28/2024 11:51 PM EST 09/28/2024 11:56 PM EST Hayley Torres MD CHEMISTRY ORDERABLES [facility] [place] [address] * Magnesium (09/28/2024 11:51 PM EST) Magnesium 0.72 0.69 - 1.07 mMol/L 09/29/2024 12:[address] [facility] Blood VENOUS BLOOD SPECIMEN / Unknown Venipuncture / Unknown 09/28/2024 11:51 PM EST 09/28/2024 11:57 PM EST Hayley Torres MD CHEMISTRY ORDERABLES [facility] [place] [address] * (ABNORMAL) Basic Metabolic Panel (09/28/2024 11:51 PM EST) Glucose 204(H) 65 - 199 mg/dL 09/29/2024 12:40 AM [facility] Comment:Glucose Concentratio n >=200 mg/dL plus symptoms is consistent with Diabetes Mellitus. Blood Urea Nitrogen 6(L) 10 - 20 mg/dL 09/29/2024 12:40 AM [facility] Creatinine 0.52(L) 0.80 - 1.50 mg/dL 09/29/2024 12:40 AM [facility] Sodium 137 135 - 145 mMol/L 09/29/2024 12:40 AM [facility] Potassium 3.2(L) 3.5 - 5.0 mMol/L 09/29/2024 12:40 AM [facility] Chloride 105 98 - 107 mMol/L 09/29/2024 12:40 AM [facility] Carbon Dioxide 21(L) 22 - 31 mMol/L 09/29/2024 12:40 AM [facility] Anion Gap 11 5 - 15 mMol/L 09/29/2024 12:40 AM [facility] Calcium 6.7(LLL) 8.5 - 10.5 mg/dL 09/29/2024 12:40 AM [facility] Est Glomerular Filtration Rate - Male 123 mL/min/1. 73 m?? 09/29/2024 12:40 AM [facility] Comment: This patient's estimated [...] PM EST Hayley Torres MD CHEMISTRY ORDERABLES [facility] [place] [id number] * (ABNORMAL) CBC (with Diff) (09/28/2024 11:51 PM EST) White Blood Cell 12.76(H) 4.00 - 9.50 x10(3)/mc L 09/29/2024 12:00 AM [facility] Red Blood Cell 2.90(L) 4.58 - 5.54 x10(6)/mc L 09/29/2024 12:00 AM [facility] Hemoglobin 8.5(L) 13.7 - 16.5 g/dL 09/29/2024 12:00 AM [facility] Hematocrit 24.7(L) 40.5 - 48.5 % 09/29/2024 12:00 AM [facility] Mean Cell Volume 85.2 82.9 - 93.1 fL 09/29/2024 12:00 AM [facility] Mean Cell Hemoglobin 29.3 27.5 - 32.1 pg 09/29/2024 12:00 AM [facility] Mean Cell Hemoglobin Concentration 34.4 32.0 - 35.7 g/dL 09/29/2024 12:00 AM [facility] Platelet 331 145 - 357 x10(3)/mc L 09/29/2024 12:00 AM [facility] Mean Platelet Volume 9.2 7.6 - 12.9 fL 09/29/2024 12:00 AM [facility] RDW Standard Deviation 40.4 36.0 - 45.0 fL 09/29/2024 12:00 AM [facility] RDW coefficient of variation 13.1 11.4 - 13.8 % 09/29/2024 12:00 AM [facility] NRBC% auto 0.0 % 09/29/2024 12:00 AM [facility] NRBC Absolute <0.01 <0.01 x10(3)/mc L 09/29/2024 12:00 AM [facility] Neutrophil % 86.7 % 09/29/2024 12:00 AM [facility] Neutrophil Absolute (ANC) - Automated 11.06(H) 1.70 - 6.10 x10(3)/mc L 09/29/2024 12:00 AM [facility] Lymph % 7.7 % 09/29/2024 12:00 AM [facility] Lymph Absolute 0.98 0.90 - 3.20 x10(3)/mc L 09/29/2024 12:00 AM [facility] Monocyte % 4.0 % 09/29/2024 12:00 AM [facility] Monocyte Absolute 0.51 0.30 - 0.90 x10(3)/mc L 09/29/2024 12:00 AM [facility] Eos % 0.0 % 09/29/2024 12:00 AM [facility] Eos Absolute <0.04 0.00 - 0.40 x10(3)/mc L 09/29/2024 12:00 AM [facility] Basophil % 0.2 % 09/29/2024 12:00 AM [facility] Baso Absolute <0.04 0.00 - 0.10 x10(3)/mc L 09/29/2024 12:00 AM [facility] Immature Gran % 1.4 % 12:00 AM [facility] Immature Gran Absolute 0.18(H) 0.00 - 0.04 x10(3)/mc L 09/29/2024 12:[address] [facility] Blood VENOUS BLOOD SPECIMEN / Unknown Venipuncture / Unknown 09/28/2024 11:51 PM EST 09/28/2024 11:56 PM EST Hayley Torres MD HEMATOLOGY ORDERABLE S Performing Organization Address City/[facility]/ZIP Co de Phone Number [facility] [place] [address] * (ABNORMAL) POC, GLUCOSE (09/28/2024 11:45 PM EST) Glucometer, POC 238(H) 65 - 199 mg/dL 09/28/2024 11:[address] [facility] Comment:Supplemental ranges: <140 mg/dL before meals <180 mg/dL all other times of the day. Blood CAPILLARY BLOOD / Unknown 09/28/2024 11:45 PM EST 09/28/2024 11:45 PM EST Hayley Torres MD POINT OF CARE TEST O GILDA Performing Organization Address [facility] Co de Phone Number [facility] [place] [address] * (ABNORMAL) POC, GLUCOSE (09/28/2024 10:00 PM EST) Glucometer, POC 287(H) 65 - 199 mg/dL 09/28/2024 10:[address] [facility] Comment:Supplemental ranges: <140 mg/dL before meals <180 mg/dL all other times of the day. Blood CAPILLARY BLOOD / Unknown 09/28/2024 10:00 PM EST 09/28/2024 10:00 PM EST Hayley Torres MD POINT OF CARE TEST O GILDA Performing Organization Address City/[facility]/ZIP Co de Phone Number [facility] [place] [address] * (ABNORMAL) POC, GLUCOSE (09/28/2024 7:51 PM EST) Glucometer, POC 243(H) 65 - 199 mg/dL 09/28/2024 7:[address] [facility] Comment:Supplemental ranges: <140 mg/dL before meals <180 mg/dL all other times of the day. Blood CAPILLARY BLOOD / Unknown 09/28/2024 7:51 PM EST 09/28/2024 7:52 PM EST Hayley Torres MD POINT OF CARE TEST O GILDA Performing Organization Address [facility] Co de Phone Number [facility] [place] [address] * Blood culture (09/28/2024 5:49 PM EST) Blood Culture No growth at 120 hours 10/03/2024 7:[address] [facility] Blood VENOUS BLOOD SPECIMEN / Unknown Venipuncture / Unknown 09/28/2024 5:49 PM EST 09/28/2024 5:53 PM EST Marko Dickson MD MICROBIOLOGY - BLOOD ORDERABLES Performing Organization Address [facility] Co de Phone Number [facility] [place] [address] * (ABNORMAL) POC, GLUCOSE (09/28/2024 4:42 PM EST) Glucometer, POC 203(H) 65 - 199 mg/dL 09/28/2024 4:[address] [facility] Comment:Supplemental ranges: <140 mg/dL before meals <180 mg/dL all other times of the day. Blood CAPILLARY BLOOD / Unknown 09/28/2024 4:42 PM EST 09/28/2024 4:42 PM EST Hayley Torres MD POINT OF CARE TEST O RDTYESHA [facility] [place] [address] * (ABNORMAL) Blood Gas, Arterial POC (09/28/2024 3:16 PM EST) pH, Arterial 7.42 7.35 - 7.45 09/28/2024 3:17 PM [facility] PCO2, Arterial 39 35 - 45 mmHg 09/28/2024 3:17 PM [facility] PO2, Arterial 103 85 - 104 mmHg 09/28/2024 3:17 PM [facility] Bicarbonate, Arterial 24.8 20.0 - 26.0 mmol/L 09/28/2024 3:17 PM [facility] Base Excess, Arterial 0.2 -3.0 - 3.0 mmol/L 09/28/2024 3:17 PM [facility] Hemoglobin, Arterial 10.9(L) 13.7 - 16.5 g/dL 09/28/2024 3:17 PM [facility] Oxyhemoglobin, Arterial 97.1(H) 94.0 - 97.0 % 09/28/2024 3:17 PM [facility] Carboxyhemoglobin , Arterial 0.1 % 09/28/2024 3:17 PM [facility] Comment: Nonsmokers: 0.5-1.5% COHB ?? Smokers: Variable ??but usually less than 10% ?? Toxic: 20-30% COHB ?? Lethal: Greater than 60% COHB Methemoglobin, Arterial 0.2 <=1.5 % 09/28/2024 3:17 PM [facility] Sodium, Arterial 131(L) 135 - 145 mmol/L 09/28/2024 3:17 PM [facility] Potassium, Arterial 3.8 3.5 - 5.0 mmol/L 09/28/2024 3:17 PM [facility] Chloride, Arterial 99 98 - 107 mmol/L 09/28/2024 3:17 PM [facility] Lactate, Arterial 1.1 0.5 - 2.2 mmol/L 09/28/2024 3:[address] [facility] IONIZED CALCIUM, ARTERIAL 1.08(L) 1.15 - 1.33 mmol/L 09/28/2024 3:[address] [facility] Glucose, Arterial 163 65 - 199 mg/dL 09/28/2024 3:[address] [facility] Comment:Glucose Concentratio n >=200 mg/dL plus symptoms is consistent with Diabetes Mellitus. Blood ARTERIAL BLOOD / Unknown 09/28/2024 3:16 PM EST 09/28/2024 3:17 PM EST Hayley Torres MD POINT OF CARE TEST O RDERABLES Performing Organization Address [facility]/State/[facility] Co de Phone Number [facility] [place] [address] * Surgical Pathology (09/28/2024 2:10 PM EST) Case Report Surgical Pathology Report ? Case: [id number] ? Authorizing Provider: ??Hayley Torres MD ? Collected: ? 09/28/2024 1410 ? Ordering Location: ? Main Operating Room [facility] ?? Received: ?09/28/2024 1644 ? [facility] [place] [facility] ? Pathologist: ? Aziza Packer MD ? Specimens: ?? A) - Leg, Left, Left femoral proximal graft ? B) - Leg, Left, Left distal BK pop graft ? 10/02/2024 8:17 AM [facility] Final Diagnosis A. Graft, left leg, femoral proximal, excision: - Gross surgical pathology examination. B. Graft, left leg, distal BK pop, excision: - Gross surgical pathology examination. 10/02/2024 8:17 AM [facility] Clinical Information A. Leg, Left, Left femoral proximal graft Left femoral proximal graft B. Leg, Left, Left distal BK pop graft Left distal BK pop graft 10/02/2024 8:17 AM [facility] Gross Description A. Leg, [...] diagnosis only sns 10/02/2024 8:[address] [facility] Result Note Routine 10/02/2024 8:[address] [facility] Bleach Supervisor STRUCTURE OF LEFT LOWER LIMB / Unknown 09/28/2024 2:10 PM EST 09/28/2024 4:44 PM EST Comment:Left femoral proxima l graft Biomedical device (physical object) STRUCTURE OF LEFT LOWER LIMB / Unknown 09/28/2024 2:17 PM EST 09/28/2024 4:44 PM EST Comment:Left distal BK pop g raft Hayley Torres MD PATHOLOGY/CYTOLOGY O RDERABLES [facility] [place] [address] * Potassium (09/28/2024 10:45 AM EST) Potassium 4.6 3.5 - 5.0 mMol/L 09/28/2024 12:[address] [facility] Blood VENOUS BLOOD SPECIMEN / Unknown Venipuncture / Unknown 09/28/2024 10:45 AM EST 09/28/2024 10:53 AM EST Marko Dickson MD CHEMISTRY ORDERABLES [facility] [place] [address] * POC, GLUCOSE (09/28/2024 7:57 AM EST) Glucometer, POC 192 65 - 199 mg/dL 09/28/2024 7:[address] [facility] Comment:Supplemental ranges: <140 mg/dL before meals <180 mg/dL all other times of the day. Blood CAPILLARY BLOOD / Unknown 09/28/2024 7:57 AM EST 09/28/2024 7:57 AM EST Marko Dickson MD POINT OF CARE TEST O RDERABLES [facility] [place] [address] * ELEN, legs, multiple levels (09/28/2024 7:44 AM EST) VB Text Report Department: Vascular Surgery Lab Patient: [id number] (GEOVANNA DIXON) CPT: 88470 Referring Physician: HERMILA SNIDER ?? Phone: Indications: [...] EST Narrative 09/28/2024 9:15 AM EST [address] [place] [address] ? Echocardiogram Report Name: GEOVANNA DIXON JR ?Study Date: 09/28/2024 06:56 AMBP: 132/75 mmHg ? Patient Location: ^IC08^A : 1975 ? Height: 179 cm ? Account: [id number] Age: 49 yrs ? Weight: 108 kg Gender: Male ?BSA: 2.3 m2 Ordering Physician: Marko Dickson MD Referring Physician: PATRIC GILES Performed By: Faiza Cole Reason For Study: Vascular graft infection, initial encounter; MRSA bacteremia Interpreting Fellow: Jame Lares. Exam Location: [facility]. Interpretation Summary -Limited study performed for bacteremia [...] 05/29/2024, no significant changes. Procedure Limited - 17040. Doppler - 32480. Color Doppler - 85015. Suboptimal quality. This study is limited because [...] Note David Lomeli MD - 09/28/2024 [address] [place] [address] Echocardiogram Report Name: GEOVANNA DIXON, JR Study Date: 406:56 AMBP: 132/75 mmHg Patient Location:[facility]^ : 1975 Height: 179 cm Account: [id number] Age: 49 yrs Weight: 108 kg Gender: Male BSA: 2.3 m2 Ordering Physician: Marko Dickson MD Referring Physician: PATRIC GILES Performed By: Faiza Cole Reason For Study: Vascular graft infection, initial encounter; MRSAbacteremia Interpreting Fellow: Jame Lares. Exam Location: [facility]. Interpretation Summary -Limited study performed for bacteremia [...] 05/29/2024, no significant changes. Procedure Limited - 66009. Doppler - 42058. Color Doppler - 54954. Suboptimalquality. This study is limited because of [...] - 20.0 mg/L 09/28/2024 7:[address] [facility] Comment: Varies according to infection source. Blood VENOUS BLOOD SPECIMEN / Unknown Venipuncture / Unknown 09/28/2024 6:44 AM EST 09/28/2024 6:49 AM EST Marko Dickson MD CHEMISTRY ORDERABLES Performing Organization Address [facility]/ZIP Co de Phone Number [facility] [place] [address] * (ABNORMAL) Potassium (09/28/2024 4:55 AM EST) Potassium 2.9(LLL) 3.5 - 5.0 mMol/L 09/28/2024 5:[address] [facility] Blood VENOUS BLOOD SPECIMEN / Unknown Venipuncture / Unknown 09/28/2024 4:55 AM EST 09/28/2024 5:01 AM EST Marko Dickson MD CHEMISTRY ORDERABLES Performing Organization Address [facility] Co de Phone Number [facility] [place] [address] * (ABNORMAL) POC, GLUCOSE (09/28/2024 3:54 AM EST) Glucometer, POC 229(H) 65 - 199 mg/dL 09/28/2024 3:[address] [facility] Comment:Supplemental ranges: <140 mg/dL before meals <180 mg/dL all other times of the day. Blood CAPILLARY BLOOD / Unknown 09/28/2024 3:54 AM EST 09/28/2024 3:54 AM EST Marko Dickson MD POINT OF CARE TEST O RDERABLES Performing Organization Address [facility] Co de Phone Number [facility] [place] [address] * Magnesium (09/27/2024 11:58 PM EST) Magnesium 0.77 0.69 - 1.07 mMol/L 09/28/2024 12:38 AM EST [facility] Blood VENOUS BLOOD SPECIMEN / Unknown Venipuncture / Unknown 09/27/2024 11:58 PM EST 09/28/2024 12:10 AM EST Hayley Torres MD CHEMISTRY ORDERABLES [facility] [place] [address] * (ABNORMAL) Basic Metabolic Panel (09/27/2024 11:58 PM EST) Glucose 246(H) 65 - 199 mg/dL 09/28/2024 12:[address] [facility] Comment:Glucose Concentratio n >=200 mg/dL plus symptoms is consistent with Diabetes Mellitus. Blood Urea Nitrogen 5(L) 10 - 20 mg/dL 09/28/2024 12:38 AM [facility] Creatinine 0.48(L) 0.80 - 1.50 mg/dL 09/28/2024 12:38 AM [facility] Sodium 131(L) 135 - 145 mMol/L 09/28/2024 12:38 AM [facility] Potassium 3.2(L) 3.5 - 5.0 mMol/L 09/28/2024 12:38 AM [facility] Chloride 95(L) 98 - 107 mMol/L 09/28/2024 12:38 AM [facility] Carbon Dioxide 23 22 - 31 mMol/L 09/28/2024 12:38 AM [facility] Anion Gap 13 5 - 15 mMol/L 09/28/2024 12:38 AM [facility] Calcium 8.1(L) 8.5 - 10.5 mg/dL 09/28/2024 12:38 AM [facility] Est Glomerular Filtration Rate - Male 126 mL/min/1. 73 m?? 09/28/2024 12:38 AM [facility] Comment: This patient's estimated [...] AM EST Hayley Torres MD CHEMISTRY ORDERABLES [facility] [place] [address] * (ABNORMAL) CBC (with Diff) (09/27/2024 11:58 PM EST) White Blood Cell 17.15(H) 4.00 - 9.50 x10(3)/mc L 09/28/2024 12:14 AM [facility] Red Blood Cell 3.64(L) 4.58 - 5.54 x10(6)/mc L 09/28/2024 12:14 AM [facility] Hemoglobin 10.4(L) 13.7 - 16.5 g/dL 09/28/2024 12:14 AM [facility] Hematocrit 30.5(L) 40.5 - 48.5 % 09/28/2024 12:14 AM [facility] Mean Cell Volume 83.8 82.9 - 93.1 fL 09/28/2024 12:14 AM [facility] Mean Cell Hemoglobin 28.6 27.5 - 32.1 pg 09/28/2024 12:14 AM [facility] Mean Cell Hemoglobin Concentration 34.1 32.0 - 35.7 g/dL 09/28/2024 12:14 AM [facility] Platelet 316 145 - 357 x10(3)/mc L 09/28/2024 12:14 AM [facility] Mean Platelet Volume 9.4 7.6 - 12.9 fL 09/28/2024 12:14 AM [facility] RDW Standard Deviation 39.4 36.0 - 45.0 fL 09/28/2024 12:14 AM [facility] RDW coefficient of variation 12.8 11.4 - 13.8 % 09/28/2024 12:14 AM [facility] NRBC% auto 0.0 % 09/28/2024 12:14 AM [facility] NRBC Absolute <0.01 <0.01 x10(3)/mc L 09/28/2024 12:14 AM [facility] Neutrophil % 81.2 % 09/28/2024 12:14 AM [facility] Neutrophil Absolute (ANC) - Automated 13.93(H) 1.70 - 6.10 x10(3)/mc L 09/28/2024 12:14 AM [facility] Lymph % 10.5 % 09/28/2024 12:14 AM [facility] Lymph Absolute 1.80 0.90 - 3.20 x10(3)/mc L 09/28/2024 12:14 AM [facility] Monocyte % 5.7 % 09/28/2024 12:14 AM [facility] Monocyte Absolute 0.98(H) 0.30 - 0.90 x10(3)/mc L 09/28/2024 12:14 AM [facility] Eos % 0.7 % 09/28/2024 12:14 AM [facility] Eos Absolute 0.12 0.00 - 0.40 x10(3)/mc L 09/28/2024 12:14 AM [facility] Basophil % 0.5 % 09/28/2024 12:14 AM [facility] Baso Absolute 0.08 0.00 - 0.10 x10(3)/mc L 09/28/2024 12:[address] [facility] Immature Gran % 1.4 % 12:[address] [facility] Immature Gran Absolute 0.24(H) 0.00 - 0.04 x10(3)/mc L 09/28/2024 12:[address] [facility] Blood VENOUS BLOOD SPECIMEN / Unknown Venipuncture / Unknown 09/27/2024 11:58 PM EST 09/28/2024 12:10 AM EST Hayley Torres MD HEMATOLOGY ORDERABLE S [facility] [place] [address] * (ABNORMAL) POC, GLUCOSE (09/27/2024 11:46 PM EST) Glucometer, POC 205(H) 65 - 199 mg/dL 09/27/2024 11:[address] [facility] Comment:Supplemental ranges: <140 mg/dL before meals <180 mg/dL all other times of the day. Blood CAPILLARY BLOOD / Unknown 09/27/2024 11:46 PM EST 09/27/2024 11:46 PM EST Marko Dickson MD POINT OF CARE TEST O RDERABLES [facility] [place] [address] * (ABNORMAL) Blood culture (09/27/2024 9:33 PM EST) Blood Culture Methicillin Resistant Staphylococcus aureus(Critical) 10/02/2024 8:[address] [facility] Comment:Susceptibilities pre viously reported. Gram Stain Aerobic Bottle: Gram positive cocci in clusters(Critical ) 10/02/2024 8:[address] [facility] Blood VENOUS BLOOD SPECIMEN / Unknown Venipuncture / Unknown 09/27/2024 9:33 PM EST 09/27/2024 9:38 PM EST Marko Dickson MD MICROBIOLOGY - BLOOD ORDERABLES [facility] [place] [address] * POC, GLUCOSE (09/27/2024 7:51 PM EST) Glucometer, POC 142 65 - 199 mg/dL 09/27/2024 7:[address] [facility] Comment:Supplemental ranges: <140 mg/dL before meals <180 mg/dL all other times of the day. Blood CAPILLARY BLOOD / Unknown 09/27/2024 7:51 PM EST 09/27/2024 7:51 PM EST Marko Dickson MD POINT OF CARE TEST O RDERABLES Performing Organization Address City/[facility]/ZIP Co de Phone Number [facility] [place] [address] * (ABNORMAL) Hemogram (09/27/2024 5:55 PM EST) [facility] White Blood Cell 19.38(H) 4.00 - 9.50 x10(3)/mc L 09/27/2024 6:16 PM [facility] Red Blood Cell 3.76(L) 4.58 - 5.54 x10(6)/mc L 09/27/2024 6:[address] [facility] Hemoglobin 11.0(L) 13.7 - 16.5 g/dL 09/27/2024 6:16 PM [facility] Hematocrit 31.6(L) 40.5 - 48.5 % 09/27/2024 6:[address] [facility] Mean Cell Volume 84.0 82.9 - 93.1 fL 09/27/2024 6:16 PM [facility] Mean Cell Hemoglobin 29.3 27.5 - 32.1 pg 09/27/2024 6:16 PM [facility] Mean Cell Hemoglobin Concentration 34.8 32.0 - 35.7 g/dL 09/27/2024 6:[address] [facility] Platelet 322 145 - 357 x10(3)/mc L 09/27/2024 6:16 PM [facility] Mean Platelet Volume 9.4 7.6 - 12.9 fL 09/27/2024 6:16 PM [facility] RDW Standard Deviation 39.4 36.0 - 45.0 fL 09/27/2024 6:16 PM [facility] RDW coefficient of variation 13.0 11.4 - 13.8 % 09/27/2024 6:16 PM [facility] NRBC% auto 0.0 % 09/27/2024 6:16 PM [facility] NRBC Absolute <0.01 <0.01 x10(3)/mc L 09/27/2024 6:16 PM [facility] Blood VENOUS BLOOD SPECIMEN / Unknown Venipuncture / Unknown 09/27/2024 5:55 PM EST 09/27/2024 6:05 PM EST Marko Dickson MD HEMATOLOGY ORDERABLE S [facility] [place] [address] * POC, GLUCOSE (09/27/2024 5:48 PM EST) [facility] Signature Glucometer, POC 171 65 - 199 mg/dL 09/27/2024 5:[address] [facility] Comment:Supplemental ranges: <140 mg/dL before meals <180 mg/dL all other times of the day. Blood CAPILLARY BLOOD / Unknown 09/27/2024 5:48 PM EST 09/27/2024 5:48 PM EST Marko Dickson MD POINT OF CARE TEST O RDERABLES [facility] [place] [address] * Anaerobic Culture (09/27/2024 4:54 PM EST) Anaerobic Culture No anaerobic organisms isolated 10/01/2024 3:[address] [facility] Tissue STRUCTURE OF LEFT THIGH / Unknown 09/27/2024 4:54 PM EST Comment:Infected explanted l eft leg bypass graft Hayley Torres MD MICROBIOLOGY - GENER AL ORDERABLES [facility] [place] [address] * (ABNORMAL) Tissue Culture, Aerobic Only (09/27/2024 4:54 PM EST) Tissue Culture Rare Methicillin Resistant Staphylococcus aureus(A) VITEK 2 METHOD 10/01/2024 1:[address] [facility] Gram Stain Few Neutrophils seen 10/01/2024 1:[address] [facility] Gram Stain No microorganisms seen 10/01/2024 1:[address] [facility] Tissue STRUCTURE OF LEFT THIGH [...] - GENER AL ORDERABLES Performing Organization Address [facility] Co de Phone Number [facility] [place] [address] * Fungus culture (09/27/2024 4:54 PM EST) Fungus Culture No fungus isolated 10/31/2024 7:[address] [facility] Tissue STRUCTURE OF LEFT THIGH / Unknown 09/27/2024 4:54 PM EST 09/27/2024 5:23 PM EST Comment:Infected explanted l eft leg bypass graft Hayley Torres MD MICROBIOLOGY - GENER AL ORDERABLES Performing Organization Address [facility] Co de Phone Number [facility] [place] [address] * POC, GLUCOSE (09/27/2024 3:23 PM EST) Glucometer, POC 178 65 - 199 mg/dL 09/27/2024 3:[address] [facility] Comment:Supplemental ranges: <140 mg/dL before meals <180 mg/dL all other times of the day. Blood CAPILLARY BLOOD / Unknown 09/27/2024 3:23 PM EST 09/27/2024 3:23 PM EST Marko Dickson MD POINT OF CARE TEST O RDERABLES Performing Organization Address [facility] Co de Phone Number [facility] [place] [address] * POC, GLUCOSE (09/27/2024 11:29 AM EST) Glucometer, POC 181 65 - 199 mg/dL 09/27/2024 11:[address] [facility] Comment:Supplemental ranges: <140 mg/dL before meals <180 mg/dL all other times of the day. Blood CAPILLARY BLOOD / Unknown 09/27/2024 11:29 AM EST 09/27/2024 11:30 AM EST Marko Dickson MD POINT OF CARE TEST O RDERABLES [facility] [place] [address] * CT Lower Extremity w Contrast Left (09/27/2024 9:16 AM EST) WORKSTATION ID [id number] [facility] Anatomical Region Laterality Modality Hip, Leg, [...] questions please contact the health patient care technician that requested your imaging first. [...] wedged between the vastus medialis and adductor Creston muscle. This tracks into the popliteal fossa [...] have questions please contactthe health patient care technician that requested your imaging first. Rose Wright PIE CUTTER IMG CT ORDERABL ES * POC, GLUCOSE (09/27/2024 7:51 AM EST) [facility] Glucometer, POC 194 65 - 199 mg/dL 09/27/2024 7:[address] [facility] Comment:Supplemental ranges: <140 mg/dL before meals <180 mg/dL all other times of the day. Blood CAPILLARY BLOOD / Unknown 09/27/2024 7:51 AM EST 09/27/2024 7:51 AM EST Marko Dickson MD POINT OF CARE TEST O RDERABLES [facility] [place] [address] * (ABNORMAL) MRSA PCR Screen (09/27/2024 7:51 AM EST) [facility] MRSA PCR Detected(A ) 09/27/2024 11:56 AM EST [facility] Swab BOTH ANTERIOR NARES / Unknown Non Blood Collection / Unknown 09/27/2024 7:51 AM EST 09/27/2024 8:05 AM EST Narrative [facility] - 09/27/2024 11:56 AM EST This test was performed using the Xpert MRSA NxG test kit and is run on the [employer] GeneXpert Dx System. This test is cleared by the U.S. Food and Drug Administration for clinical use and its performance characteristics have been verified by the [facility] at [facility]. Marko Dickson MD MOLECULAR ORDERABLES [facility] [place] [address] * Potassium (09/27/2024 7:51 AM EST) Potassium 3.5 3.5 - 5.0 mMol/L 09/27/2024 9:[address] [facility] Blood VENOUS BLOOD SPECIMEN / Unknown Venipuncture / Unknown 09/27/2024 7:51 AM EST 09/27/2024 8:05 AM EST Marko Dickson MD CHEMISTRY ORDERABLES Performing Organization Address City/[facility]/ZIP Co de Phone Number [facility] [place] [address] * (ABNORMAL) Potassium (09/27/2024 5:05 AM EST) Potassium 3.4(L) 3.5 - 5.0 mMol/L 09/27/2024 5:[address] [facility] Blood VENOUS BLOOD SPECIMEN / Unknown Venipuncture / Unknown 09/27/2024 5:05 AM EST 09/27/2024 5:09 AM EST Marko Dickson MD CHEMISTRY ORDERABLES Performing Organization Address City/[facility]/ZIP Co de Phone Number [facility] [place] [address] * POC, GLUCOSE (09/27/2024 3:52 AM EST) Glucometer, POC 199 65 - 199 mg/dL 09/27/2024 3:[address] [facility] Comment:Supplemental ranges: <140 mg/dL before meals <180 mg/dL all other times of the day. Blood CAPILLARY BLOOD / Unknown 09/27/2024 3:52 AM EST 09/27/2024 3:52 AM EST Marko Dickson MD POINT OF CARE TEST O RDERABLES Performing Organization Address City/[facility]/ZIP Co de Phone Number [facility] [place] [address] * (ABNORMAL) POC, GLUCOSE (09/27/2024 1:59 AM EST) Glucometer, POC 219(H) 65 - 199 mg/dL 09/27/2024 2:[address] [facility] Comment:Supplemental ranges: <140 mg/dL before meals <180 mg/dL all other times of the day. Blood CAPILLARY BLOOD / Unknown 09/27/2024 1:59 AM EST 09/27/2024 2:00 AM EST Marko Dickson MD POINT OF CARE TEST O RDTYESHA Performing Organization Address City/[facility]/ZIP Co de Phone Number [facility] [place] [address] * (ABNORMAL) Magnesium (09/27/2024 12:01 AM EST) Magnesium 0.68(L) 0.69 - 1.07 mMol/L 09/27/2024 12:[address] [facility] Blood VENOUS BLOOD SPECIMEN / Unknown Venipuncture / Unknown 09/27/2024 12:01 AM EST 09/27/2024 12:05 AM EST Hayley Torres MD CHEMISTRY ORDERABLES [facility] [place] [address] * (ABNORMAL) Basic Metabolic Panel (09/27/2024 12:01 AM EST) Glucose 261(H) 65 - 199 mg/dL 09/27/2024 12:35 AM [facility] Comment:Glucose Concentratio n >=200 mg/dL plus symptoms is consistent with Diabetes Mellitus. Blood Urea Nitrogen 7(L) 10 - 20 mg/dL 09/27/2024 12:35 AM [facility] Creatinine 0.45(L) 0.80 - 1.50 mg/dL 09/27/2024 12:35 AM [facility] Sodium 128(L) 135 - 145 mMol/L 09/27/2024 12:35 AM [facility] Potassium 3.3(L) 3.5 - 5.0 mMol/L 09/27/2024 12:35 AM [facility] Chloride 92(L) 98 - 107 mMol/L 09/27/2024 12:35 AM [facility] Carbon Dioxide 23 22 - 31 mMol/L 09/27/2024 12:35 AM [facility] Anion Gap 13 5 - 15 mMol/L 09/27/2024 12:35 AM [facility] Calcium 8.5 8.5 - 10.5 mg/dL 09/27/2024 12:35 AM [facility] Est Glomerular Filtration Rate - Male 128 mL/min/1. 73 m?? 09/27/2024 12:35 AM [facility] Comment: This patient's estimated [...] AM EST Hayley Torres MD CHEMISTRY ORDERABLES [facility] [place] [address] * (ABNORMAL) CBC (with Diff) (09/27/2024 12:01 AM EST) White Blood Cell 23.20(H) 4.00 - 9.50 x10(3)/mc L 09/27/2024 12:10 AM [facility] Red Blood Cell 4.07(L) 4.58 - 5.54 x10(6)/mc L 09/27/2024 12:10 AM [facility] Hemoglobin 11.7(L) 13.7 - 16.5 g/dL 09/27/2024 12:10 AM [facility] Hematocrit 33.6(L) 40.5 - 48.5 % 09/27/2024 12:10 AM [facility] Mean Cell Volume 82.6(L) 82.9 - 93.1 fL 09/27/2024 12:10 AM [facility] Mean Cell Hemoglobin 28.7 27.5 - 32.1 pg 09/27/2024 12:10 AM [facility] Mean Cell Hemoglobin Concentration 34.8 32.0 - 35.7 g/dL 09/27/2024 12:10 AM [facility] Platelet 296 145 - 357 x10(3)/mc L 09/27/2024 12:10 AM [facility] Mean Platelet Volume 9.5 7.6 - 12.9 fL 09/27/2024 12:10 AM [facility] RDW Standard Deviation 37.9 36.0 - 45.0 fL 09/27/2024 12:10 AM [facility] RDW coefficient of variation 12.6 11.4 - 13.8 % 09/27/2024 12:10 AM [facility] NRBC% auto 0.0 % 09/27/2024 12:10 AM [facility] NRBC Absolute <0.01 <0.01 x10(3)/mc L 09/27/2024 12:10 AM [facility] Neutrophil % 83.7 % 09/27/2024 12:10 AM [facility] Neutrophil Absolute (ANC) - Automated 19.43(H) 1.70 - 6.10 x10(3)/mc L 09/27/2024 12:10 AM [facility] Lymph % 6.7 % 09/27/2024 12:10 AM [facility] Lymph Absolute 1.56 0.90 - 3.20 x10(3)/mc L 09/27/2024 12:10 AM [facility] Monocyte % 7.8 % 09/27/2024 12:10 AM [facility] Monocyte Absolute 1.80(H) 0.30 - 0.90 x10(3)/mc L 09/27/2024 12:10 AM [facility] Eos % 0.2 % 09/27/2024 12:10 AM [facility] Eos Absolute 0.04 0.00 - 0.40 x10(3)/mc L 09/27/2024 12:10 AM [facility] Basophil % 0.5 % 09/27/2024 12:10 AM [facility] Baso Absolute 0.12(H) 0.00 - 0.10 x10(3)/mc L 09/27/2024 12:10 AM [facility] Immature Gran % 1.1 % 12:10 AM [facility] Immature Gran Absolute 0.25(H) 0.00 - 0.04 x10(3)/mc L 09/27/2024 12:[address] [facility] Blood VENOUS BLOOD SPECIMEN / Unknown Venipuncture / Unknown 09/27/2024 12:01 AM EST 09/27/2024 12:05 AM EST Hayley Torres MD HEMATOLOGY ORDERABLE S Performing Organization Address City/[facility]/ZIP Co de Phone Number [facility] [place] [address] * (ABNORMAL) POC, GLUCOSE (09/26/2024 11:59 PM EST) Glucometer, POC 251(H) 65 - 199 mg/dL 09/26/2024 11:[address] [facility] Comment:Supplemental ranges: <140 mg/dL before meals <180 mg/dL all other times of the day. Blood CAPILLARY BLOOD / Unknown 09/26/2024 11:59 PM EST 09/26/2024 11:59 PM EST Marko Dickson MD POINT OF CARE TEST Stephanie VO Performing Organization Address [facility]/ZIP Co de Phone Number [facility] [place] [address] * (ABNORMAL) POC, GLUCOSE (09/26/2024 7:34 PM EST) Glucometer, POC 204(H) 65 - 199 mg/dL 09/26/2024 7:[address] [facility] Comment:Supplemental ranges: <140 mg/dL before meals <180 mg/dL all other times of the day. Blood CAPILLARY BLOOD / Unknown 09/26/2024 7:34 PM EST 09/26/2024 7:35 PM EST Marko Dickson MD POINT OF CARE TEST O GILDA [facility] [place] [address] * (ABNORMAL) Blood culture (09/26/2024 6:45 PM EST) Blood Culture Methicillin Resistant Staphylococcus aureus(Critical) 10/01/2024 6:[address] [facility] Comment: isolated. Susceptibilities previously reported. Gram Stain Aerobic Bottle: Gram positive cocci in clusters(Critical ) 10/01/2024 6:[address] [facility] Blood VENOUS BLOOD SPECIMEN / Unknown Venipuncture / Unknown 09/26/2024 6:45 PM EST 09/26/2024 6:48 PM EST Marko Dickson MD MICROBIOLOGY - BLOOD ORDERABLES [facility] [place] [address] * (ABNORMAL) Sonicated Tissue/Implant Culture (09/26/2024 5:16 PM EST) Sonicated Tissue/Implan t Culture Methicillin Resistant Staphylococcus aureus(A) VITEK 2 METHOD 09/30/2024 1:[address] [facility] Comment: isolated from broth culture. Susceptibilities previously reported. Vascular Graft STRUCTURE OF LEFT LOWER LIMB / Unknown Non Blood Collection / Unknown 09/26/2024 5:16 PM EST 09/26/2024 5:45 PM EST Marko Dickson MD MICROBIOLOGY - GENER AL ORDERABLES Performing Organization Address City/[facility]/ZIP Co de Phone Number [facility] [place] [address] * Anaerobic Culture (09/26/2024 5:02 PM EST) Anaerobic Culture No anaerobic organisms isolated 09/30/2024 3:[address] [facility] Abscess STRUCTURE OF LEFT KNEE REGION / Unknown Non Blood Collection / Unknown 09/26/2024 5:02 PM EST Comment:Left Below Knee popl iteal fluid Please perform Gram stain if not included in order Hayley Torres MD MICROBIOLOGY - GENER AL ORDERABLES [facility] [place] [address] * (ABNORMAL) Abscess/Wound Aspirate Culture, Aerobic Only (09/26/2024 5:02 PM EST) Abscess/Wound Aspirate Culture Many Methicillin Resistant Staphylococcus aureus(A) VITEK 2 METHOD 09/30/2024 1:[address] [facility] Gram Stain Many neutrophils(A) 09/30/2024 1:[address] [facility] Gram Stain Many Gram positive cocci(A) 09/30/2024 1:[address] [facility] Abscess STRUCTURE OF LEFT KNEE [...] Torres MD MICROBIOLOGY - [place] [address] * Fungus culture (09/26/2024 5:02 PM EST) Fungus Culture No fungus isolated 10/24/2024 7:[address] [facility] Abscess STRUCTURE OF LEFT KNEE REGION / Unknown Non Blood Collection / Unknown 09/26/2024 5:02 PM EST 09/26/2024 5:08 PM EST Comment:Left Below Knee popl iteal fluid Please perform Gram stain if not included in order Hayley Torres MD MICROBIOLOGY - GENER AL ORDERABLES Performing Organization Address [facility] Co de Phone Number [facility] [place] [address] * Anaerobic Culture (09/26/2024 4:50 PM EST) Anaerobic Culture No anaerobic organisms isolated 09/30/2024 3:[address] [facility] Abscess LEFT INGUINAL REGION STRUCTURE / Unknown Non Blood Collection / Unknown 09/26/2024 4:50 PM EST Comment:Left Groin Fluid Hayley Torres MD MICROBIOLOGY - GENER AL ORDERABLES Performing Organization Address City/[facility] Co de Phone Number [facility] [place] [address] * (ABNORMAL) Abscess/Wound Aspirate Culture, Aerobic Only (09/26/2024 4:50 PM EST) Abscess/Wound Aspirate Culture Many Methicillin Resistant Staphylococcus aureus(A) VITEK 2 METHOD 09/30/2024 1:[address] [facility] Gram Stain Many neutrophils(A) 09/30/2024 1:[address] [facility] Gram Stain Many Gram positive cocci(A) 09/30/2024 1:[address] [facility] Abscess LEFT INGUINAL REGION STRUCTURE [...] - GENER AL ORDERABLES Performing Organization Address City/[facility]/ZIP Co de Phone Number [facility] [place] [address] * Fungus culture (09/26/2024 4:50 PM EST) Pathologist [facility] Fungus Culture No fungus isolated 10/24/2024 7:54 AM [facility] Abscess LEFT INGUINAL REGION STRUCTURE / Unknown Non Blood Collection / Unknown 09/26/2024 4:50 PM EST 09/26/2024 4:56 PM EST Comment:Left Groin Fluid Hayley Torres MD MICROBIOLOGY - GENER AL ORDERABLES Performing Organization Address [facility] Co de Phone Number [facility] [place] [address] * (ABNORMAL) Blood Gas, Arterial POC (09/26/2024 4:43 PM EST) Pathologist [facility] pH, Arterial 7.38 7.35 - 7.45 09/27/2024 7:[address] [facility] PCO2, Arterial 41 35 - 45 mmHg 09/27/2024 7:41 AM [facility] PO2, Arterial 96 85 - 104 mmHg 09/27/2024 7:41 AM [facility] Bicarbonate, Arterial 23.8 20.0 - 26.0 mmol/L 09/27/2024 7:41 AM [facility] Base Excess, Arterial -1.4 -3.0 - 3.0 mmol/L 09/27/2024 7:41 AM [facility] Hemoglobin, Arterial 12.6(L) 13.7 - 16.5 g/dL 09/27/2024 7:41 AM [facility] Oxyhemoglobin, Arterial 96.2 94.0 - 97.0 % 09/27/2024 7:41 AM [facility] Carboxyhemoglobin , Arterial 0.3 % 09/27/2024 7:41 AM [facility] Comment: Nonsmokers: 0.5-1.5% COHB ?? Smokers: Variable ??but usually less than 10% ?? Toxic: 20-30% COHB ?? Lethal: Greater than 60% COHB Methemoglobin, Arterial 0.3 <=1.5 % 09/27/2024 7:41 AM [facility] Sodium, Arterial 128(L) 135 - 145 mmol/L 09/27/2024 7:41 AM [facility] Potassium, Arterial 3.0(LLL) 3.5 - 5.0 mmol/L 09/27/2024 7:41 AM [facility] Chloride, Arterial 95(L) 98 - 107 mmol/L 09/27/2024 7:41 AM [facility] Lactate, Arterial 1.7 0.5 - 2.2 mmol/L 09/27/2024 7:41 AM [facility] IONIZED CALCIUM, ARTERIAL 1.09(L) 1.15 - 1.33 mmol/L 09/27/2024 7:41 AM [facility] Glucose, Arterial 205(H) 65 - 199 mg/dL 09/27/2024 7:41 AM [facility] Comment:Glucose Concentratio n >=200 mg/dL plus symptoms is consistent with Diabetes Mellitus. Blood ARTERIAL BLOOD / Unknown 09/26/2024 4:43 PM EST 09/27/2024 7:41 AM EST Marko Dickson MD POINT OF CARE TEST O GILDA [facility] [place] [address] * (ABNORMAL) POC, GLUCOSE (09/26/2024 4:29 PM EST) Glucometer, POC 213(H) 65 - 199 mg/dL 09/26/2024 4:[address] [facility] Comment:Supplemental ranges: <140 mg/dL before meals <180 mg/dL all other times of the day. Blood CAPILLARY BLOOD / Unknown 09/26/2024 4:29 PM EST 09/26/2024 4:30 PM EST Marko Dickson MD POINT OF CARE TEST Stephanie VO Performing Organization Address [facility]/ZIP Co de Phone Number [facility] [place] [address] * (ABNORMAL) Blood Gas, Venous POC (09/26/2024 3:28 PM EST) pH, Venous 7.43(H) 7.32 - 7.42 09/26/2024 3:30 PM [facility] PCO2, Venous 41 38 - 58 mmHg 09/26/2024 3:30 PM [facility] PO2, Venous 18 16 - 65 mmHg 09/26/2024 3:30 PM [facility] Bicarbonate, Venous 26.6 22 - 31 mmol/L 09/26/2024 3:30 PM [facility] Base Excess, Venous 2.3 1.9 - 4.5 mmol/L 09/26/2024 3:30 PM [facility] Hemoglobin, Venous 12.4(L) 13.7 - 16.5 g/dL 09/26/2024 3:30 PM [facility] Oxyhemoglobin, Venous 26.8 % 09/26/2024 3:30 PM [facility] Carboxyhemoglobin , Venous 1.0 % 09/26/2024 3:30 PM [facility] Comment: Nonsmokers: 0.5-1.5% COHB ?? Smokers: Variable ??but usually less than 10% ?? Toxic: 20-30% COHB ?? Lethal: Greater than 60% COHB Methemoglobin, Venous 0.4 <=1.5 % 09/26/2024 3:[address] [facility] Sodium, Venous 127(L) 135 - 145 mmol/L 09/26/2024 3:[address] [facility] Potassium, Venous 3.3(L) 3.5 - 5.0 mmol/L 09/26/2024 3:[address] [facility] Chloride, Venous 91(L) 98 - 107 mmol/L 09/26/2024 3:30 PM [facility] Glucose, Venous 259(H) 65 - 199 mg/dL 09/26/2024 3:[address] [facility] Comment:Glucose Concentratio n >=200 mg/dL plus symptoms is consistent with Diabetes Mellitus. Lactate, Venous 2.2 0.5 - 2.2 mmol/L 09/26/2024 3:30 PM [facility] Ionized Calcium, Venous 1.09(L) 1.15 - 1.33 mmol/L 09/26/2024 3:30 PM [facility] Blood VENOUS BLOOD SPECIMEN / Unknown 09/26/2024 3:28 PM EST 09/26/2024 3:30 PM EST Marko Dickson MD POINT OF CARE TEST O RDERABLES [facility] [place] [address] * (ABNORMAL) Scan, Peripheral Blood (09/26/2024 2:39 PM EST) RBC Morphology Abnormal 09/26/2024 3:[address] [facility] Platelet Estimate Normal Normal 09/26/2024 3:[address] [facility] Microcyte 1-5 /HPF 09/26/2024 3:[address] [facility] Platelet Clumps Present(A) (none) 3:[address] [facility] WBC MORPHOLOGY See Comment(A) (none) 09/26/2024 3:[address] [facility] Comment:Dohle BodiesToxic Gr anulation Blood VENOUS BLOOD SPECIMEN / Unknown Venipuncture / Unknown 09/26/2024 2:39 PM EST 09/26/2024 2:50 PM EST Marko Dickson MD HEMATOLOGY ORDERABLE S [facility] [place] [address] * ABORH RECHECK (PATIENT HISTORY FOUND) (09/26/2024 2:39 PM EST) [facility] ABORH Recheck Progress Complete 09/26/2024 5:01 PM EST [facility] Blood VENOUS BLOOD SPECIMEN / Unknown Venipuncture / Unknown 09/26/2024 2:39 PM EST 09/26/2024 2:56 PM EST Marko Dickson MD BLOOD BANK LAB ORDER RANDELL [facility] [place] [place] [address] * (ABNORMAL) Hepatic Function Panel (09/26/2024 2:39 PM EST) [facility] Albumin 3.1(L) 3.2 - 5.2 g/dL 09/26/2024 4:[address] [facility] Aspartate Aminotransferase 16 <=39 unit/L 09/26/2024 4:[address] [facility] Alanine Aminotransferase 14 0 - 55 unit/L 09/26/2024 4:[address] [facility] Alkaline Phosphatase 160(H) 40 - 130 unit/L 09/26/2024 4:[address] [facility] Bilirubin, Total 0.4 <=1.3 mg/dL 09/26/2024 4:23 PM [facility] Bilirubin, Direct 0.2 0.0 - 0.3 mg/dL 09/26/2024 4:23 PM [facility] Protein, Total 7.0 6.1 - 8.0 g/dL 09/26/2024 4:23 PM [facility] Blood VENOUS BLOOD SPECIMEN / Unknown Venipuncture / Unknown 09/26/2024 2:39 PM EST 09/26/2024 2:50 PM EST Mrako Dickson MD CHEMISTRY ORDERABLES [facility] [place] [address] * (ABNORMAL) Basic Metabolic Panel (09/26/2024 2:39 PM EST) Glucose 254(H) 65 - 199 mg/dL 09/26/2024 4:32 PM [facility] Comment:Glucose Concentratio n >=200 mg/dL plus symptoms is consistent with Diabetes Mellitus. Blood Urea Nitrogen 9(L) 10 - 20 mg/dL 09/26/2024 4:32 PM [facility] Creatinine 0.55(L) 0.80 - 1.50 mg/dL 09/26/2024 4:32 PM [facility] Sodium 127(L) 135 - 145 mMol/L 09/26/2024 4:32 PM [facility] Potassium 3.4(L) 3.5 - 5.0 mMol/L 09/26/2024 4:32 PM [facility] Chloride 89(L) 98 - 107 mMol/L 09/26/2024 4:32 PM [facility] Carbon Dioxide 25 22 - 31 mMol/L 09/26/2024 4:32 PM [facility] Anion Gap 13 5 - 15 mMol/L 09/26/2024 4:32 PM [facility] Calcium 8.9 8.5 - 10.5 mg/dL 09/26/2024 4:[address] [facility] Est Glomerular Filtration Rate - Male 121 mL/min/1. 73 m?? 09/26/2024 4:[address] [facility] Comment: This patient's [...] PM EST Hayley Torres MD CHEMISTRY ORDERABLES [facility] [place] [id number] * (ABNORMAL) CBC (with Diff) (09/26/2024 2:39 PM EST) White Blood Cell 22.76(H) 4.00 - 9.50 x10(3)/mc L 09/26/2024 3:[address] [facility] Red Blood Cell 4.20(L) 4.58 - 5.54 x10(6)/mc L 09/26/2024 3:21 PM [facility] Hemoglobin 12.3(L) 13.7 - 16.5 g/dL 09/26/2024 3:21 PM [facility] Hematocrit 35.0(L) 40.5 - 48.5 % 09/26/2024 3:[address] [facility] Mean Cell Volume 83.3 82.9 - 93.1 fL 09/26/2024 3:21 PM [facility] Mean Cell Hemoglobin 29.3 27.5 - 32.1 pg 09/26/2024 3:21 PM [facility] Mean Cell Hemoglobin Concentration 35.1 32.0 - 35.7 g/dL 09/26/2024 3:21 PM [facility] Platelet 277 145 - 357 x10(3)/mc L 09/26/2024 3:21 PM [facility] Mean Platelet Volume 9.6 7.6 - 12.9 fL 09/26/2024 3:21 PM [facility] RDW Standard Deviation 37.9 36.0 - 45.0 fL 09/26/2024 3:21 PM [facility] RDW coefficient of variation 12.6 11.4 - 13.8 % 09/26/2024 3:21 PM [facility] NRBC% auto 0.0 % 09/26/2024 3:21 PM [facility] NRBC Absolute <0.01 <0.01 x10(3)/mc L 09/26/2024 3:21 PM [facility] Neutrophil % 84.0 % 09/26/2024 3:21 PM [facility] Comment:This is an appended report. These results have been appended to a previously preliminary verified report. Neutrophil Absolute (ANC) - Automated 19.10(H) 1.70 - 6.10 x10(3)/mc L 09/26/2024 3:21 PM [facility] Comment:This is an appended report. These results have been appended to a previously preliminary verified report. Lymph % 6.2 % 09/26/2024 3:21 PM [facility] Comment:This is an appended report. These results have been appended to a previously preliminary verified report. Lymph Absolute 1.41 0.90 - 3.20 x10(3)/mc L 09/26/2024 3:21 PM [facility] Comment:This is an appended report. These results have been appended to a previously preliminary verified report. Monocyte % 8.1 % 09/26/2024 3:21 PM [facility] Comment:This is an appended report. These results have been appended to a previously preliminary verified report. Monocyte Absolute 1.85(H) 0.30 - 0.90 x10(3)/mc L 09/26/2024 3:21 PM [facility] Comment:This is an appended report. These results have been appended to a previously preliminary verified report. Eos % 0.0 % 09/26/2024 3:21 PM [facility] Comment:This is an appended report. These results have been appended to a previously preliminary verified report. Eos Absolute <0.04 0.00 - 0.40 x10(3)/mc L 09/26/2024 3:21 PM [facility] Comment:This is an appended report. These results have been appended to a previously preliminary verified report. Basophil % 0.5 % 09/26/2024 3:21 PM [facility] Comment:This is an appended report. These results have been appended to a previously preliminary verified report. Baso Absolute 0.11(H) 0.00 - 0.10 x10(3)/mc L 09/26/2024 3:21 PM [facility] Comment:This is an appended report. These results have been appended to a previously preliminary verified report. Immature Gran % 1.2 % 3:21 PM [facility] Comment:This is an appended report. These results have been appended to a previously preliminary verified report. Immature Gran Absolute 0.28(H) 0.00 - 0.04 x10(3)/mc L 09/26/2024 3:21 PM [facility] Comment:This is an appended report. These results have been appended to a previously preliminary verified report. Blood VENOUS BLOOD SPECIMEN / Unknown Venipuncture / Unknown 09/26/2024 2:39 PM EST 09/26/2024 2:50 PM EST Hayley Torres MD HEMATOLOGY ORDERABLE S [facility] [place] [address] * Phosphorus (09/26/2024 2:39 PM EST) [facility] Phosphorus 3.2 2.5 - 4.5 mg/dL 09/26/2024 4:[address] [facility] Blood VENOUS BLOOD SPECIMEN / Unknown Venipuncture / Unknown 09/26/2024 2:39 PM EST 09/26/2024 2:50 PM EST Marko Dickson MD CHEMISTRY ORDERABLES Performing Organization Address City/[facility]/ZIP Co de Phone Number [facility] [place] [address] * (ABNORMAL) Magnesium (09/26/2024 2:39 PM EST) [facility] Magnesium 0.65(L) 0.69 - 1.07 mMol/L 09/26/2024 4:[address] [facility] Blood VENOUS BLOOD SPECIMEN / Unknown Venipuncture / Unknown 09/26/2024 2:39 PM EST 09/26/2024 2:50 PM EST Marko Dickson MD CHEMISTRY ORDERABLES Performing Organization Address City/[facility]/ZIP Co de Phone Number [facility] [place] [address] * Type and screen ([facility]P[place] (09/26/2024 2:39 PM EST) [facility] ABORH Type A POSITIVE 09/26/2024 3:45 PM EST [facility] PATIENT HISTORY Found 09/26/2024 3:45 PM EST [facility] Expires at [id number] on: 09/29/2024 09/26/2024 3:45 PM EST [facility] ANTIBODY SCREEN AUTOMATED Negative 09/26/2024 3:45 PM EST [facility] T&S only valid at [facility] 09/26/2024 3:45 PM EST [facility] Blood VENOUS BLOOD SPECIMEN / Unknown Venipuncture / Unknown 09/26/2024 2:39 PM EST 09/26/2024 2:56 PM EST Narrative [facility] - 09/26/2024 3:45 PM EST This Type and Screen result is only valid at the [facility] Marko Dickson MD BLOOD BANK LAB ORDER RANDELL Performing Organization Address City/[facility]/ZIP Co de Phone Number [facility] [place] [address] * (ABNORMAL) Fibrinogen (09/26/2024 2:39 PM EST) Fibrinogen >1,000(H) 200 - 393 mg/dL 09/26/2024 3:[address] [facility] Comment: A fibrinogen level >100 mg/dL is adequate for hemostasis in most patients without underlying bleeding disorders. Blood VENOUS BLOOD SPECIMEN / Unknown Venipuncture / Unknown 09/26/2024 2:39 PM EST 09/26/2024 2:50 PM EST Marko Dickson MD HEMATOLOGY ORDERABLE S Performing Organization Address City/[facility] Co de Phone Number [facility] [place] [address] * APTT (09/26/2024 2:39 PM EST) Pathologist [facility] Partial Thromboplastin Time 36 25 - 37 sec 09/26/2024 3:[address] [facility] Comment: The PTT is NOT appropriate for heparin monitoring. Use the Anti-Xa level for heparin monitoring (HEP UFH) or LMWH monitoring (HEP LMW). A PTT less than 37 seconds generally indicates adequate hemostasis. Blood VENOUS BLOOD SPECIMEN / Unknown Venipuncture / Unknown 09/26/2024 2:39 PM EST 09/26/2024 2:50 PM EST Marko Dickson MD HEMATOLOGY ORDERABLE S Performing Organization Address City/[facility]/ZIP Co de Phone Number [facility] [place] [address] * (ABNORMAL) Prothrombin Time (09/26/2024 2:39 PM EST) [facility] Prothrombin Time 21.6(H) 9.4 - 12.5 sec 09/26/2024 3:[address] [facility] International Normalization Ratio 1.9 <=4.9 09/26/2024 3:[address] [facility] Comment: An INR < 2.0 [...] EST Marko Dickson MD HEMATOLOGY ORDERABLE S [facility] [place] [address] * (ABNORMAL) POC, GLUCOSE (09/26/2024 2:36 PM EST) [facility] Glucometer, POC 268(H) 65 - 199 mg/dL 09/26/2024 2:[address] [facility] Comment:Supplemental ranges: <140 mg/dL before meals <180 mg/dL all other times of the day. Blood CAPILLARY BLOOD / Unknown 09/26/2024 2:36 PM EST 09/26/2024 2:36 PM EST Marko Dickson MD POINT OF CARE TEST O RDERABLES [facility] [place] [address] * (ABNORMAL) Blood culture (09/26/2024 2:22 PM EST) [facility] Blood Culture Methicillin Resistant Staphylococcus aureus(Critical) VITEK 2 METHOD 10/07/2024 7:[address] [facility] Comment: detected by PCR Isolate saved. If future testing is required, contact the Microbiology Sales And Marketing Assistant. Gram Stain Aerobic Bottle: Gram positive cocci in clusters(Critical ) 10/07/2024 7:[address] [facility] Blood VENOUS BLOOD SPECIMEN / [...] MICROBIOLOGY - BLOOD ORDERABLES Performing Organization Address City/State/[facility] Co de Phone Number [facility] [place] [address] * Request For 2nd Read CT Lower Extremity (09/26/2024 1:50 PM EST) Wanderable WORKSTATION ID [id number] [facility] Anatomical Region Laterality Modality Hip, Leg, [...] questions please contact the health patient care technician that requested your imaging first. ? Electronically signed by: Lisette Bruno MD, [facility] ([phone]), at 09/26/2024 3:01 PM Narrative 09/26/2024 3:01 PM EST EXAMINATION: REQUEST FOR 2ND READ CT LOWER EXTREMITY CLINICAL HISTORY: Pt s/p LLE femoral-below knee popliteal bypass with PTFE graft, c/f infection surrounding graft, en route [place] [facility] [place] vascular surgery intervention; Sending Institution [facility]; Date of exam [id number]; I believe [...] on series 3, image 8 and 641, 382, 335, 712. No other rim-enhancing fluid collection is seen. [...] surrounding graft, [place] [facility] [place]; Sending Institution [facility]; Date of exam [id number]; Ibelieve a [...] on series 3, image 8 and 641, 152,079, 032. No other rim-enhancing fluid collection is seen. [...] have questions please contactthe health patient care technician that requested your imaging first. Electronically signed by: Lisette Bruno MD, [facility]([phone]), at 09/26/2024 3:01 PM Marko Dickson MD [...] RN) 0615 (Given - Provider: Jordyn Navas, DAVID)141 (Given - Provider: Indira Tracey RN)2116 (Given - Provider: Lauren Zavaal RN) 06 (Given - Provider: Lauren Zavala RN)1446 (Given - Provider: Terell Araiza, DAVID) insulin [...] Routine 0900 (Given - Provider: Indira Tracey RN)2028 (Given [...] Zavala RN)1107 (Given - Provider: Terell Araiza, DAVID)1632 (Given - Provider: Terell Araiza RN) metoprolol succinate XL (Toprol-XL) tablet 25 mg 25 mg, Oral, DAILY, First dose on Wed10/01/24 at 0900, Until Discontinued, DO NOT CRUSH OR OPEN, Routine 0900 (Given - Provider: Indira Tracey RN) 901 (Given - Provider: Jaja Diallo RN) 08 (Given - Provider: Terell Araiza RN) pantoprazole [...] , Routine 900 (Given - Provider: Indira Tracey, RN) magnesium citrate oral liquid 296 mL(Linked [...] Routine documented in this encounter Care Teams Manager Lpn Relationship Specialty Start Date End Date Charles Romero PA [address] [place] [address] PCP - General Internal Medicine 09/18/24 documented as of this encounter
--- OUTSIDE RECORDS SUMMARY | 2024-10-31 15:40 | XMS_ITS | Encounter Summary ---
Author Organization [facility] [place] [address] Care Team Providers Care Dental Treatment Coordinator [...] drink = 0.6 oz pur e alcohol) [facility] Utilities Answer Date Recorded In [...] time in the past 12 m [facility], were you homeless or living in a long term (including now)? No 08/02/2024 IPV Inpatient Questions [...] PM EST Office Visit Infectious Disease at [place] [phone] Isabela Hayward, RESHMA [facility] [place] [address] 11/10/2024 10:00 AM EST Office [place] [address] Dai Whitman APRN 11/21/2024 2:15 PM EST Office [place] [phone] Dayanara Grover MD [facility] [place] [address] documented as of this encounter Visit Diagnoses Not on filedocumented in this encounter Care Teams Dental Treatment Coordinator Relationship Specialty Start Date End Date Charles Romero PA [facility] [place] [address] PCP - General Internal Medicine 09/18/24 documented as of this encounter
--- OUTSIDE RECORDS SUMMARY | 2024-10-31 15:40 | XMS_ITS | Encounter Summary ---
Author Organization [facility] [place] [address] Care Team Providers Care Manager Ccu Name Role Phone Charles Romero Primary Care Provider + Encounter Details Date Type Department Care Team (Late st Contact Info) Description 09/21/2024 Telephone [place] [phone] Lovely Huitron, RN Social History Tobacco Use Types Packs/Day Years Used Date Smoking Tobacco: Every Day Cigarettes 1 25 Started: 12/28/1986; Last attempted to quit: 12/28/2011 Smokeless Tobacco: Never Alcohol Use Standard Drinks/Week Comments No 0 (1 standard drink = 0.6 oz pur e alcohol) [facility] Utilities Answer Date Recorded In the past 12 months has e [email or web address], gas, oil, or water [employer] threatened to shut off services in [...] any time in the past 12 m [facility], were you homeless or living in [...] Pt reported that he went to the [facility] emergency room yesterday for the aching and [...] PM EST Office [place] [phone] Isabela Hayward, STOVE TENDER [facility] [place] [address] 11/10/2024 10:00 AM EST Office Visit Vascular Surgery at [place] [phone] Dai Whitman, RESHMA 11/21/2024 2:15 PM EST Office [place] [phone] Dayanara Grover MD [facility] [place] [address] documented as of this encounter Visit Diagnoses Not on filedocumented in this encounter Care Teams Manager Ccu Relationship Specialty Start Date End Date Charles Romero [place] [address] PCP - General Internal Medicine 09/18/24 documented as of this encounter
--- OUTSIDE RECORDS SUMMARY | 2024-10-31 15:40 | XMS_ITS | Encounter Summary ---
Author Organization [facility] Address [facility] [place] [address] Care Team Providers Care Machine Wedger Name Role Phone Charles Romero Primary Care Provider + Encounter Details Date Type Department Care Team (Late st Contact Info) Description 09/20/2024 Ancillary Procedure Radiology Library at [facility], [place] [address] Marko Dickson MD [facility] [place] [address] Social History Tobacco Use Types Packs/Day Years Used Date Smoking Tobacco: Every Day Cigarettes 1 25 Started: 12/28/1986; Last attempted to quit: 12/28/2011 Smokeless Tobacco: Never Alcohol Use Standard Drinks/Week Comments No 0 (1 standard drink = 0.6 oz pur e alcohol) [facility] Utilities Answer Date Recorded In the past 12 months has [employer], gas, oil, or water [employer] threatened to shut off services in your [...] health care facility (including now)? No 08/02/2024 IPV Inpatient Questions [...] PM EST Office [place] [phone] Isabela Hayward, RESHMA [facility] [place] [address] 11/10/2024 10:00 AM EST Office [place] [phone] Dai Whitman APRN 11/21/2024 2:15 PM EST Office [place] [phone] Dayanara Grover MD [facility] [place] [address] documented as of this encounter Procedures Procedure Name Priority Date/Time Associated Diagnosis Comments FILM LIBRARY STORAGE ONLY CT LOWER EXTREMITY Routine 09/20/2024 12:00 AM EST documented in this encounter Results * Film Library- Storage Only CT Lower Extremity (09/20/2024 12:00 AM EST) Narrative [facility] - 09/26/2024 1:48 PM EST This exam is auto-finalizing. It's purpose is for storage only. Marko Dickson MD G FILM LIBRARY ORD ERABLES [place], [place] documented in this encounter Visit Diagnoses Not on filedocumented in this encounter Care Teams Machine Wedger Relationship Specialty Start Date End Date Charles Romero PA [address] [place] [address] PCP - General Internal Medicine 09/18/24 documented as of this encounter
--- OUTSIDE RECORDS SUMMARY | 2024-10-31 15:40 | XMS_ITS | Encounter Summary ---
Author Organization [facility] Address [facility] [place] [address] Care Team Providers Care [employer] Name Role Phone Charles Romero Primary Care Provider + Encounter Details Date Type Department Care Team (Late st Contact Info) Description 09/26/2024 1:55 PM EST Ancillary Procedure Radiology Library at [facility] [place] [address] Marko Dickson MD [facility] [place] [address] Social History Tobacco Use Types Packs/Day Years Used Date Smoking Tobacco: Every Day Cigarettes 1 25 Started: 12/28/1986; Last attempted to quit: 12/28/2011 Smokeless Tobacco: Never Alcohol Use Standard Drinks/Week Comments No 0 (1 standard drink = 0.6 oz pur e alcohol) [facility] Utilities Answer Date Recorded In the [...] any time in the past 12 m [facility], were you homeless or living in a skilled nursing (including now)? No 09/27/2024 IPV Inpatient Questions [...] PM EST Office [place] [phone] Isabela Hayward APRN [facility] [place] [address] 11/10/2024 10:00 AM EST Office Visit [place] [phone] Dai Whitman APRN 11/21/2024 2:15 PM EST Office [place] [phone] Dayanara Grover MD [facility] [place] [address] documented as of this encounter Procedures Procedure Name Priority Date/Time Associated Diagnosis Comments REQUEST FOR 2ND READ CT LOWER EXTREMITY Routine 09/26/2024 1:50 PM EST documented in this encounter Results * Request For 2nd Read CT Lower Extremity (09/26/2024 1:50 PM EST) [employer] Signature WORKSTATION ID [id number] [facility] Anatomical Region Laterality Modality Hip, Leg, [...] who have questions please contact the health pharmacy care coordinator that requested your imaging first. ? Electronically signed by: Lisette Bruno MD, [facility] ([phone]), at 09/26/2024 3:01 PM Narrative 09/26/2024 3:01 PM EST EXAMINATION: REQUEST FOR 2ND READ CT LOWER EXTREMITY CLINICAL HISTORY: Pt s/p LLE femoral-below knee popliteal bypass with PTFE graft, c/f infection surrounding graft, en route to [facility] for possible vascular surgery intervention; Sending Institution [facility]; Date of exam [id number]; I believe a [...] example on series 3, image 8 and 647, 493, 741, 652. No other rim-enhancing fluid collection is [...] c/f infection surrounding graft, en route to [facility] for possiblevascular surgery intervention; Sending Institution [facility]; Date of exam [id number]; Ibelieve a reinterpretation [...] patients who have questions please contactthe health pharmacy care coordinator that requested your imaging first. Electronically signed by: Lisette Bruno MD, [facility]([phone]), at 09/26/2024 3:01 PM Marko Dickson MD IMG OUTSIDE INTERPRE TATION ORDERABLES documented in this encounter Visit Diagnoses Not on filedocumented in this encounter Care Teams [employer] Relationship Specialty Start Date End Date Charles Romero [place] [address] [place] [address] PCP - General Internal Medicine 09/18/24 documented as of this encounter
--- OUTSIDE RECORDS SUMMARY | 2024-10-31 15:40 | XMS_ITS | Encounter Summary ---
Author Organization [facility] Address [facility] [address] [place] [address] Care Team Providers Care Validation Scientist Name Role Phone Charles Romero Primary Care Provider + Encounter Details Date Type Department Care Team (Late st Contact Info) Description 09/26/2024 10:25 AM EST Ancillary Procedure Radiology Library at [facility] [place] [address] Marko Dickson MD [facility] [place] [address] Social History Tobacco Use Types Packs/Day Years Used Date Smoking Tobacco: Every Day Cigarettes 1 25 Started: 12/28/1986; Last attempted to quit: 12/28/2011 Smokeless Tobacco: Never Alcohol Use Standard Drinks/Week Comments No 0 (1 standard drink = 0.6 oz pur e alcohol) [facility] Utilities Answer Date Recorded In [...] PM EST Office [place] [phone] Isabela Hayward APRN [facility] [place] [address] 11/10/2024 10:00 AM EST Office [place] [phone] Dai Whitman APRN 11/21/2024 2:15 PM EST Office [place] [phone] Dayanara Grover MD [facility] [place] [address] documented as of this encounter Procedures Procedure Name Priority Date/Time Associated Diagnosis Comments FILM LIBRARY STORAGE ONLY CT LOWER EXTREMITY Routine 09/26/2024 10:21 AM EST documented in this encounter Results * Film Library- Storage Only CT Lower Extremity (09/26/2024 10:21 AM EST) Narrative [facility] - 09/26/2024 10:21 AM EST This exam is auto-finalizing. It's purpose is for storage only. Marko Dickson MD G FILM LIBRARY ORD ERABLES Performing Organization Address City/State/[facility] Co de Phone Number [place], [place] documented in this encounter Visit Diagnoses Not on filedocumented in this encounter Care Teams Validation Scientist Relationship Specialty Start Date End Date Charles Romero [place] [place] [address] PCP - General Internal Medicine 09/18/24 documented as of this encounter
--- OUTSIDE RECORDS SUMMARY | 2024-10-31 15:40 | XMS_ITS | Encounter Summary ---
Author Organization [facility] [place] [address] Care Team Providers Care Cell Attendant Name Role Phone Charles Romero Primary Care Provider + Encounter Details Date Type Department Care Team (Late st Contact Info) Description 09/25/2024 Telephone [place] [phone] Fallon Lemus, RN Social History Tobacco Use Types Packs/Day Years Used Date Smoking Tobacco: Every Day Cigarettes 12 02 Started: 12/28/1986; Last attempted to quit: 12/28/2011 Smokeless Tobacco: Never Alcohol Use Standard Drinks/Week Comments No 0 (1 standard drink = 0.6 oz pur e alcohol) [facility] Utilities Answer Date Recorded In the past 12 months has [employer], gas, oil, or water [employer] threatened to shut off services in your [...] in the past 12 m [facility], were you homeless or living in a nursing home (including now)? No 08/02/2024 IPV Inpatient [...] The A nurse thought Lux went to [facility], but according to Lux, he came to . No records from either emergency room are noted in patient chart. Rebeca was advised that Lux should go to the emergency room for evaluation. Rebeca verbalized agreement and understanding. [facility] documented in this encounter Plan of Treatment Upcoming Encounters Date Type Department Care Team (Late st Contact Info) Description 11/09/2024 1:30 PM EST Office [place] [address] Isabela Hayward, MS SQL SERVER DEVELOPER [facility] [place] [address] 11/10/2024 10:00 AM EST Office Visit Vascular Surgery at [place] [phone] Dai Whitman, RESHMA 11/21/2024 2:15 PM EST Office [place] [phone] Dayanara Grover MD [facility] [place] [address] documented as of this encounter Visit Diagnoses Not on filedocumented in this encounter Care Teams Cell Attendant Relationship Specialty Start Date End Date Charles Romero PA [facility] [place] [address] PCP - General Internal Medicine 09/18/24 documented as of this encounter
--- OUTSIDE RECORDS SUMMARY | 2024-10-31 15:40 | XMS_ITS | Encounter Summary ---
Author Organization [facility] Address [facility] [place] [address] Care Team Providers Care Insulation Cutter Name Role Phone Charles Romero Primary Care Provider + Encounter Details Date Type Department Care Team (Late st Contact Info) Description 09/26/2024 Notes Only [place] [address] Marko Dickson MD [facility] [place] [address] Social History Tobacco Use Types Packs/Day Years Used Date Smoking Tobacco: Every Day Cigarettes 1 25 Started: 12/28/1986; Last attempted to quit: 12/28/2011 Smokeless Tobacco: Never Alcohol Use Standard Drinks/Week Comments No 0 (1 standard drink = 0.6 oz pur e alcohol) [facility] Utilities Answer Date Recorded In [...] PM EST Office [place] [phone] Isabela Hayward, RESHMA [facility] [place] [address] 11/10/2024 10:00 AM EST Office Visit [place] [phone] Dai Whitman APRN 11/21/2024 2:15 PM EST Office [place] [phone] Dayanara Grover MD [facility] [place] [address] documented as of this encounter Visit Diagnoses Not on filedocumented in this encounter Care Teams Insulation Cutter Relationship Specialty Start Date End Date Charles Romero [place] [address] PCP - General Internal Medicine 09/18/24 documented as of this encounter
--- OUTSIDE RECORDS SUMMARY | 2024-10-31 15:40 | XMS_ITS | Encounter Summary ---
Author Organization Formerly [facility] [place] [address] Care Team Providers Care In Store Demonstrator Name Role Phone Charles Romero Primary Care Provider + Reason for Visit * Auth/Cert (Routine) Specialty Diagnoses / Procedures Referred By William moses Referred To Contact Diagnoses Vascular graft infection, initial encounter Sepsis [A41.9] T82.7XXA Procedures EMERGENCY IPI Angel Gonsalez MD [facility] [place] [address] [facility] Referral ID Status Reason Start Date Expiration Date Visits Re quested Visits Authorized [id number] 1 1 Encounter Details Date Type Department Care Team (Late st Contact Info) Description 09/26/2024 3:22 PM EST - 09/26/2024 6:45 PM EST Surgery [place] [address] Hayley Torres MD [facility] [place] [address] EXCISION OF INFECTED GRAFT FROM LOWER EXTREMITY [...] Operations/Major Procedures: 09/26/24: Explant of infected LEFT REGIONAL SALES DIRECTOR to below-knee popliteal artery PTFE bypass graft [...] (Left) Surgeon: Surgeons and Role: * Hermila Mccormcik MD - Primary * Cristino Meeks MD [...] 2nd toe amputation who was transferred from [facility] given concern for infected left fem-BK [...] pericardial patch and PTFE willard over the REGIONAL SALES DIRECTOR was unincorporated. - Resection of prior femoral [...] Sartorius flap healthy and starting to adhere. [place] drains removed with replacement of 15 Fr [...] juice or regular (not diet) soda 6 [employer] small box of raisins 4 glucose tablets [...] 2 tablespoons of dried fruit. Milk and dp-dbbdn-wonqk yogurt have 15 grams of carbs in a serving. A serving is 1 cup of milk or 3/4 cup (6 oz) of gd-ikkhw-hytyh yogurt. Starchy vegetables have 15 grams of carbs in a serving. A serving is ?? cup of mashed potatoes or sweet potato; 1 cup winter squash; ?? of a small baked potato; ?? cup of cooked beans; or ?? cup cooked corn or green peas. Learn how much carbs to eat each day and at each meal. A dietitian or certified mortician can teach you how to keep track [...] was scheduled for a f/u nutrition evaluation. Summer Intern met pt at bedside. Pt sharedthat his [...] Based on current findings- home (sister & mxceqla-be-qfb's home) Consult Recommendations: No other consults recommended [...] Loss: None Karolyn Hudson MD Vascular Surgery, 7637 10/09/24 Important Studies and Lab Data: Labs: [...] 05/29/2024, no significant changes. Procedure Limited - 04768. Doppler - 51395. Color Doppler - 99357. Suboptimal quality. This study is limited because [...] on series 3, image 8 and 641, 282, 776, 752. No other rim-enhancing fluid collection is seen. [...] wedged between the vastus medialis and adductor [place] muscle. This tracks into the popliteal fossa [...] PM Isabela Hayward APRN Infectious Disease at [facility] Arrive at: Home [phone] To view instructions for your video visit, click here, or visit this website: [email or web address] If you have not previously downloaded the [facility] patient portal software, Hashtago, please do so by clicking one of the links below or searching in your device's lobito store. [employer] And[employer] devices 11/09/2024 1:30 PM Isabela Hayward APRN Infectious Disease at [facility] Arrive at: [place] [phone] 11/21/2024 2:15 PM Dayanara Grover MD Endocrinology at [facility] Arrive at: [place] 3A [phone] Future Orders Complete By Expires CBC (with Diff) [GQP868 Custom] 10/17/2024 12/11/2024 Process Instructions: INCLUDES: WBC, RBC, Hgb, Hct, Platelets, RBC Indices and Differential Scheduling Instructions: Comments: Questions: OPAT: Order / Recommendation for Post Discharge IV Antibiotic Management [LGR609 CPT(R)] As directed Process Instructions: If no progress note charted, please enter Clinical details in comments. Scheduling Instructions: Comments: - If this order was signed greater than 72 hours prior to [facility] discharge, please call to confirm the accuracy of this order. Please Fax all results to: OPAT Program Infectious Disease Section [facility], [place] [address] FAX: - After hours, please contact the Infectious Disease Physician alumni relations officer at . - Line care instructions - see flush/heparin orders. Facilities may follow organizational policies/practices regarding heparin. - intermediate for medication administration/hooker off and catheter care/maintenance authorized. - CVC/PICC Dressing Change weekly and PRN Please use CHG or Bio Patch RN: Please care for PICC line including dressing changes weekly and prn. Please draw labs every Wednesday and PRN and [facility] at [phone]. Please draw labs off PICC line. [facility]. Please RN visit for IV ABX teaching and ongoing assessment. Assisted for Medication Administration/Hookup and catheter care/maintenance: - [...] Amaya Hernandez MD Referral for Outpatient Antibiotics [LHW5032 CPT(R)] As directed Process Instructions: Scheduling Instructions: [...] admission to Home Health. [address] [address] Phone Number: [phone] (home) Date of : 1975 Inpatient DOCUMENTATION FOR VNA SERVICES (INCLUDING THOSE PATIENTS WITH MEDICARE COVERAGE REQUIRING HOME VNA SERVICES AND/OR HOSPICE SERVICES) PATIENT'S LOCATION: Geovanna Dixon Jr. [address] [facility] [address] [phone] (home) Cell: Telephone Information: Supervisor Fleshing's Name: Geovanna In discussion with the attending physician, it is certified that this patient is under their care and that they, or a Nurse Practitioner, Clinical Nurse specialist or Physician Blending Tank Tender Helper who is working directly with them, had [...] for managing ADLs. HOME HEALTH CARE AGENCY: [facility]. [address] [place] [address] START OF CARE: within 24-48 hours of discharge Patient has Medicare Please note that any additional orders needs or changes will need to be obtained from this patient's PCP: JUSTIN Roberson [address] [facility] [address] . All VNA agencies which cover the area of patient's residence have been reviewed, either verbally or in writing, andpatient/family have chosen the home health care agency noted. Questions: Disciplines Requested: Nursing Physical Therapy Occupational Therapy Recurring Lab Work Interval Expires CBC (with Diff) [[id number] Custom] Once a week until 12/10/2024 12/10/2024 [...] For any problems or questions please call [phone] For issues on weeknights after 5pm and weekends please call [phone] and ask for the Vascular Fellow alumni relations officer. Discharge Medications: Your Medications New Medications [...] - See Instructions). FLUSH PROTOCOL WITH MEDICATIONS ([facility]): Before med infusion: flush with NS [...] - See Instructions). FLUSH PROTOCOL WITH MEDICATIONS ([facility]): Before med infusion: flush with NS [...] can get this completed at 3L at [facility] prior to your scheduled [...] For any problems or questions please call [phone] For issues on weeknights after 5pm and weekends please call [phone] and ask for the Vascular Fellow alumni relations officer. documented in this encounter Discharge Instructions [...] 2 tablespoons of dried fruit. Milk and lb-pbfpg-unzic yogurt have 15 grams of carbs in a serving. A serving is 1 cup of milk or 3/4 cup (6 oz) of ou-sgytl-hlclq yogurt. Starchy vegetables have 15 grams of carbs in a serving. A serving is ?? cup of mashed potatoes or sweet potato; 1 cup winter squash; ?? of a small baked potato; ?? cup of cooked beans; or ?? cup cooked corn or green peas. Learn how much carbs to eat each day and at each meal. A dietitian or certified mortician can teach you how to keep track [...] can get this completed at 3L at [facility] prior to your scheduled [...] For any problems or questions please call [phone] For issues on weeknights after 5pm and weekends please call [phone] and ask for the Vascular Fellow alumni relations officer. documented in this encounter Medications at [...] - See Instructions). FLUSH PROTOCOL WITH MEDICATIONS ([facility]): Before med infusion: flush with NS [...] - See Instructions). FLUSH PROTOCOL WITH MEDICATIONS ([facility]): Before med infusion: flush with NS [...] to contact. Reviewed roles and responsibilities of GENERAL SURGERY PHYSICIAN ASSISTANT and infusion vendor. Contact information for ID and Vascular team/clinic, GENERAL SURGERY PHYSICIAN ASSISTANT and infusion vendor given to pt. Discussed f/u appointments in ID 5C clinic, telephone and tele health. Pt verbalized understanding. All questions answered. IV & PO ABX Medications: Daptomycin 700mg IV daily Start/anticipated end date: 10/10/24-11/10/24 GENERAL SURGERY PHYSICIAN ASSISTANT: [place] Infusion vendor: [employer] Care IV Access: 4 Fr. single lumen [...] 2 tablespoons of dried fruit. Milk and ps-fgdse-sjoob yogurt have 15 grams of carbs in a serving. A serving is 1 cup of milk or 3/4 cup (6 oz) of tr-ucgnw-avbsn yogurt. Starchy vegetables have 15 grams of carbs in a serving. A serving is ?? cup of mashed potatoes or sweet potato; 1 cup winter squash; ?? of a small baked potato; ?? cup of cooked beans; or ?? cup cooked corn or green peas. Learn how much carbs to eat each day and at each meal. A dietitian or certified mortician can teach you how to keep track [...] this time. OT to complete orders. Pager: [phone] Fabián Burrows OT 10/09/2024 Occupational Therapy Rehabilitation [...] by plastic. The sponge was exposed and ivrginie pad placed, and 125 mmHg continuous negative [...] Loss: None Karolyn Hudson MD Vascular Surgery, 9459 10/09/24 * Terry Jimenez, PT - 10/09/2024 12:02 PM EST Physical Therapy Visit #2 Patient profile: Geovanna Dixon Jr. is a 49 y.o. male with a history of HTN, HLD, NSTEMI, CAD s/p CABG (12/2011), DM,obesity, PAD s/p L iliofem endart and L fem-BK pop bypass and L 2nd toe amputation who was transferred from [facility], 09/26/24 given concern for infected left fem-BK popliteal PTFE bypass. He is now s/p an explant of an infected left femoral-below knee popliteal artery bypass graft (09/26), I/D groin abscess (09/27), L GSV harvest, vein patch angioplasty, L REGIONAL SALES DIRECTOR and BK pop w/ sartorius flap L fem, I/D, 09/29 L sartorius flap revision, vac change. 10/03/24 NPO at [facility] for OR wound exploration. Wound [...] He mentions he'll stay with sister and esdjzwa-kf-ram upon DC. Pt resting in bed upon [...] up with R and down with L, qlyi-ss-xqab. Balance: Sitting: NORMAL- EOB unsupported good postural [...] Based on current findings- home (sister & uzuaiux-ha-dxb's home) Consult Recommendations: No other consults recommended [...] 15 (TE-F) minutes TERRY JIMENEZ PT Pager: [phone] Physical Therapy Inpatient Rehabilitation Department * María Carranza, SPORTS PHYSICAL THERAPIST - 10/09/2024 11:14 AM EST Images from the original note were not included. Vascular Surgery Progress Note Geovanna Dixon Jr. is a 49 y.o. 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 He presented to [facility] on 09/26 and went [...] Procedure Component Value - Date/Time Blood culture [[id number]] (Abnormal) (Susceptibility) Collected: 09/26/24 1422 Lab Status: Edited Result - FINAL Specimen: Blood, Venous Updated: 10/07/24 0740 Blood Culture Methicillin Resistant Staphylococcus aureus Comment: detected by PCR Isolate saved. If future testing is required, contact the Microbiology Language Instructor. Gram Stain Aerobic Bottle: Gram positive cocci in clusters Susceptibility Methicillin Resistant Staphylococcus aureus MINIMUM INHIBITORY CONCENTRATION VITEK 2 METHOD Clindamycin Resistant Daptomycin Susceptible Gentamicin Susceptible [1] Linezolid Susceptible Oxacillin Resistant Trimethoprim/Sulfa Susceptible Vancomycin Susceptible [1] Gentamicin is not appropriate for monotherapy for gram-positive infections. AFB culture [[id number]] Collected: 09/27/24 1654 Lab Status: Preliminary result Specimen: Tissue from Thigh, Left Updated: 10/05/24 1201 Acid Fast Bacilli Culture No acid fast bacilli isolated at 1 week. Acid Fast Stain No acid fast bacilli seen Blood culture [[id number]] Collected: 09/29/242123 Lab Status: Final result Specimen: Blood, Venous Updated: 10/04/24 2301 Blood Culture No growth at 120 hours Blood culture [[id number]] Collected: 09/29/242123 Lab Status: Final result Specimen: Blood, Venous Updated: 10/04/24 2301 Blood Culture No growth at 120 hours AFB culture [[id number]] Collected: 09/26/24 1702 Lab Status: Preliminary result Specimen: Abscess from Knee, Left Updated: 10/04/24 1201 Acid Fast Bacilli Culture No acid fast bacilli isolated at 1 week. Acid Fast Stain No acid fast bacilli seen Blood culture [[id number]] Collected: 09/28/24 1749 Lab Status: Final result [...] 2nd toe amputation who was transferred from [facility] given concern for infected left fem-BK popliteal PTFE bypass. He is now s/p an explantof an infected left femoral-below knee popliteal artery bypass graft (09/26), I/D groin abscess (), L GSV harvest, vein patch angioplasty, L REGIONAL SALES DIRECTOR and BK pop w/ sartorius flap L fem, I/D, 09/29 L sartorius flap revision, vac change. 10/09/24: Progressing well post surgically. Will pull medial thigh drain today, retain sartorius flap drain along with wound vac x 3 sponges ([facility] has approved for home vac) and [...] PRN PICC dressing change completed as per [facility] protocol. Positive pressure displacement [...] 2nd toe amputation who was transferred from [facility] given concern for infected left fem-BK [...] smoking 1 week ago. He presented to [facility] on 09/26 and went [...] Procedure Component Value - Date/Time Blood culture [[id number]] (Abnormal) (Susceptibility) Collected: 09/26/24 1422 Lab Status: Edited Result - FINAL Specimen: Blood, Venous Updated: 10/07/24 0740 Blood Culture Methicillin Resistant Staphylococcus aureus Comment: detected by PCR Isolate saved. If future testing is required, contact the Microbiology Language Instructor. Gram Stain Aerobic Bottle: Gram positive cocci in clusters Susceptibility Methicillin Resistant Staphylococcus aureus MINIMUM INHIBITORY CONCENTRATION VITEK 2 METHOD Clindamycin Resistant Daptomycin Susceptible Gentamicin Susceptible [1] Linezolid Susceptible Oxacillin Resistant Trimethoprim/Sulfa Susceptible Vancomycin Susceptible [1] Gentamicin is not appropriate for monotherapy for gram-positive infections. AFB culture [[id number]] Collected: 09/27/24 165 Lab Status: Preliminary result Specimen: Tissue from Thigh, Left Updated: 10/05/24 1201 Acid Fast Bacilli Culture No acid fast bacilli isolated at 1 week. Acid Fast Stain No acid fast bacilli seen Blood culture [[id number]] Collected: 09/29/242123 Lab Status: Final result Specimen: Blood, Venous Updated: 10/04/24 2301 Blood Culture No growth at 120 hours Blood culture [[id number]] Collected: 09/29/242123 Lab Status: Final result Specimen: Blood, Venous Updated: 10/04/24 2301 Blood Culture No growth at 120 hours AFB culture [[id number]] Collected: 09/26/24 1702 Lab Status: Preliminary result Specimen: Abscess from Knee, Left Updated: 10/04/24 1201 Acid Fast Bacilli Culture No acid fast bacilli isolated at 1 week. Acid Fast Stain No acid fast bacilli seen Blood culture [[id number]] Collected: 09/28/24 1749 Lab Status: Final result Specimen: Blood, Venous Updated: 10/03/24 1901 Blood Culture No growth at 120 hours Blood culture [[id number]] (Abnormal) Collected: 09/27/24 2133 Lab Status: Final result Specimen: Blood, Venous Updated: 10/02/24 0804 Blood Culture Methicillin Resistant Staphylococcus aureus Comment: Susceptibilities previously reported. Gram Stain Aerobic Bottle: Gram positive cocci in clusters Tissue Culture, Aerobic & Anaerobic [[id number]] Collected: 09/27/24 165 Lab Status: Final result Specimen: Tissue from Thigh, Left Updated: 10/01/24 1554 Narrative: The following orders were created for panel order Tissue Culture, Aerobic & Anaerobic. Procedure Abnormality Status --------- ------ Tissue Culture, Aerobic ...[[id number]] Anaerobic Culture[[id number]] Final result Please view results for these tests on the individual orders. Anaerobic Culture [[id number]] Collected: 09/27/241653 Lab Status: Final result Specimen: Tissue from Thigh, Left Updated: 10/01/24 1554 Anaerobic Culture No anaerobic organisms isolated Tissue Culture, Aerobic Only [[id number]] (Abnormal) (Susceptibility) Collected: 09/27/241653 Lab Status: Final [...] 2nd toe amputation who was transferred from [facility] given concern for infected left fem-BK popliteal PTFE bypass. He is now s/p an explantof an infected left femoral-below knee popliteal artery bypass graft (09/26), I/D groin abscess (), L GSV harvest, vein patch angioplasty, L REGIONAL SALES DIRECTOR and BK pop w/ sartorius flap L [...] 81mg daily Vibha Benson APRN 10/08/2024 Pager: [phone] * Vibha Benson APRN - 10/07/2024 8:52 AM EST Images from the original note were not included. Vascular Surgery Progress Note Geovanna Dixon Jr. is a 49 y.o. 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 He presented to [facility] on 09/26 and went [...] Procedure Component Value - Date/Time Blood culture [[id number]] (Abnormal) (Susceptibility) Collected: 09/26/24 1422 Lab Status: Edited Result - FINAL Specimen: Blood, Venous Updated: 10/07/24 0740 Blood Culture Methicillin Resistant Staphylococcus aureus Comment: detected by PCR Isolate saved. If future testing is required, contact the Microbiology Language Instructor. Gram Stain Aerobic Bottle: Gram positive cocci in clusters Susceptibility Methicillin Resistant Staphylococcus aureus MINIMUM INHIBITORY CONCENTRATION VITEK 2 METHOD Clindamycin Resistant Daptomycin Susceptible Gentamicin Susceptible [1] Linezolid Susceptible Oxacillin Resistant Trimethoprim/Sulfa Susceptible Vancomycin Susceptible [1] Gentamicin is not appropriate for monotherapy for gram-positive infections. AFB culture [[id number]] Collected: 09/27/24 165 Lab Status: Preliminary result Specimen: Tissue from Thigh, Left Updated: 10/05/24 1201 Acid Fast Bacilli Culture No acid fast bacilli isolated at 1 week. Acid Fast Stain No acid fast bacilli seen Blood culture [[id number]] Collected: 09/29/242123 Lab Status: Final result Specimen: Blood, Venous Updated: 10/04/24 2301 Blood Culture No growth at 120 hours Blood culture [[id number]] Collected: 09/29/242123 Lab Status: Final result Specimen: Blood, Venous Updated: 10/04/24 2301 Blood Culture No growth at 120 hours AFB culture [[id number]] Collected: 09/26/24 1702 Lab Status: Preliminary result Specimen: Abscess from Knee, Left Updated: 10/04/24 1201 Acid Fast Bacilli Culture No acid fast bacilli isolated at 1 week. Acid Fast Stain No acid fast bacilli seen Blood culture [[id number]] Collected: 09/28/24 1749 Lab Status: Final result Specimen: Blood, Venous Updated: 10/03/24 1901 Blood Culture No growth at 120 hours Blood culture [[id number]] (Abnormal) Collected: 09/27/24 2133 Lab Status: Final result Specimen: Blood, Venous Updated: 10/02/24 0804 Blood Culture Methicillin Resistant Staphylococcus aureus Comment: Susceptibilities previously reported. Gram Stain Aerobic Bottle: Gram positive cocci in clusters Tissue Culture, Aerobic & Anaerobic [[id number]] Collected: 09/27/24 165 Lab Status: Final result Specimen: Tissue from Thigh, Left Updated: 10/01/24 1554 Narrative: The following orders were created for panel order Tissue Culture, Aerobic & Anaerobic. Procedure Abnormality Status --------- ------ Tissue Culture, Aerobic ...[[id number]] Anaerobic Culture[[id number]] Final result Please view results for these tests on the individual orders. Anaerobic Culture [[id number]] Collected: 09/27/24 165 Lab Status: Final result Specimen: Tissue from Thigh, Left Updated: 10/01/24 155 Anaerobic Culture No anaerobic organisms isolated Tissue Culture, Aerobic Only [[id number]] (Abnormal) (Susceptibility) Collected: 09/27/24 165 Lab Status: [...] is considered susceptible to doxycycline. Blood culture [[id number]] (Abnormal) Collected: 09/26/24 1845 Lab Status: Final result Specimen: Blood, Venous Updated: 10/01/24 0658 Blood Culture Methicillin Resistant Staphylococcus aureus Comment: isolated. Susceptibilities previously reported. Gram Stain Aerobic Bottle: Gram positive cocci in clusters Abscess/Wound Aspirate Culture, Aerobic & Anaerobic [[id number]] (Abnormal) Collected: 09/26/241649 Lab Status: Final result Specimen: Abscess from Groin, Left Updated: 09/30/24 155 Narrative: The following orders were created for panel order Abscess/Wound Aspirate Culture, Aerobic & Anaerobic. Procedure Abnormality Status --------- ------ Abscess/Wound Aspirate C...[[id number]] Abnormal Final result Anaerobic Culture[[id number]] Final result Please view results for these tests on the individual orders. Anaerobic Culture [[id number]] Collected: 09/26/24 165 Lab Status: Final result Specimen: Abscess from Groin, Left Updated: 09/30/24 1551 Anaerobic Culture No anaerobic organisms isolated Abscess/Wound Aspirate Culture, Aerobic & Anaerobic [[id number]] (Abnormal) Collected: 09/26/24 1702 Lab Status: Final result Specimen: Abscess from Knee, Left Updated: 09/30/24 1551 Narrative: The following orders were created for panel order Abscess/Wound Aspirate Culture, Aerobic & Anaerobic. Procedure Abnormality Status --------- ------ Abscess/Wound Aspirate C...[[id number]] Abnormal Final result Anaerobic Culture[[id number]] Final result Please view results for these tests on the individual orders. Anaerobic Culture [[id number]] Collected: 09/26/24 1702 Lab Status: Final result Specimen: Abscess from Knee, Left Updated: 09/30/24 1551 Anaerobic Culture No anaerobic organisms isolated Sonicated Tissue/Implant Culture [[id number]] (Abnormal) Collected: 09/26/24 1716 Lab Status: Final result Specimen: Vascular Graft from Leg, Left Updated: 09/30/24 1349 Sonicated Tissue/Implant Culture Methicillin Resistant Staphylococcus aureus Comment: isolated from broth culture. Susceptibilities previously reported. Abscess/Wound Aspirate Culture, Aerobic Only [[id number]] (Abnormal) (Susceptibility) Collected: 09/26/24 1702 Lab Status: [...] to doxycycline. Abscess/Wound Aspirate Culture, Aerobic Only [[id number]] (Abnormal) (Susceptibility) Collected: 09/26/24 1650 Lab Status: [...] 2nd toe amputation who was transferred from [facility] given concern for infected left fem-BK popliteal PTFE bypass. He is now s/p an explantof an infected left femoral-below knee popliteal artery bypass graft (09/26), I/D groin abscess (), L GSV harvest, vein patch angioplasty, L REGIONAL SALES DIRECTOR and BK pop w/ sartorius flap L [...] 81mg daily Vibha Benson APRN 10/07/2024 Pager: [phone] * Karina-Jessica Mcrae, PT - 10/06/2024 3:21 PM EST 10/06/24 1512 Evaluation & Treatment Document Type contact Comment, [...] 2nd toe amputation who was transferred from [facility] given concern for infected left fem-BK [...] smoking 1 week ago. He presented to [facility] on 09/26 and went [...] Procedure Component Value - Date/Time AFB culture [[id number]] Collected: 09/27/241653 Lab Status: Preliminary result Specimen: Tissue from Thigh, Left Updated: 10/05/24 1201 Acid Fast Bacilli Culture No acid fast bacilli isolated at 1 week. Acid Fast Stain No acid fast bacilli seen Blood culture [[id number]] Collected: 09/29/242123 Lab Status: Final result Specimen: Blood, Venous Updated: 10/04/24 2301 Blood Culture No growth at 120 hours Blood culture [[id number]] Collected: 09/29/242123 Lab Status: Final result Specimen: Blood, Venous Updated: 10/04/24 2301 Blood Culture No growth at 120 hours AFB culture [[id number]] Collected: 09/26/24 170 Lab Status: Preliminary result Specimen: Abscess from Knee, Left Updated: 10/04/24 1201 Acid Fast Bacilli Culture No acid fast bacilli isolated at 1 week. Acid Fast Stain No acid fast bacilli seen Blood culture [[id number]] Collected: 09/28/24 1749 Lab Status: Final result Specimen: Blood, Venous Updated: 10/03/24 1901 Blood Culture No growth at 120 hours Blood culture [[id number]] (Abnormal) Collected: 09/27/242132 Lab Status: Final result Specimen: Blood, Venous Updated: 10/02/24 0804 Blood Culture Methicillin Resistant Staphylococcus aureus Comment: Susceptibilities previously reported. Gram Stain Aerobic Bottle: Gram positive cocci in clusters Tissue Culture, Aerobic & Anaerobic [[id number]] Collected: 09/27/241653 Lab Status: Final result Specimen: Tissue from Thigh, Left Updated: 10/01/24 1554 Narrative: The following orders were created for panel order Tissue Culture, Aerobic & Anaerobic. Procedure Abnormality Status --------- ------ Tissue Culture, Aerobic ...[[id number]] Anaerobic Culture[[id number]] Final result Please view results for these tests on the individual orders. Anaerobic Culture [[id number]] Collected: 09/27/241653 Lab Status: Final result Specimen: Tissue from Thigh, Left Updated: 10/01/24 155 Anaerobic Culture No anaerobic organisms isolated Tissue Culture, Aerobic Only [[id number]] (Abnormal) (Susceptibility) Collected: 09/27/24 1654 Lab Status: [...] is considered susceptible to doxycycline. Blood culture [[id number]] (Abnormal) (Susceptibility) Collected: 09/26/24 1422 Lab Status: Edited Specimen: Blood, Venous Updated: 10/01/24 0658 Blood Culture Methicillin Resistant Staphylococcus aureus Comment: detected by PCR Isolate saved. If future testing is required, contact the Microbiology Language Instructor. Gram Stain Aerobic Bottle: Gram positive cocci in clusters Susceptibility Methicillin Resistant Staphylococcus aureus VITEK 2 METHOD Clindamycin Resistant Gentamicin Susceptible [1] Linezolid Susceptible Oxacillin Resistant Trimethoprim/Sulfa Susceptible Vancomycin Susceptible [1] Gentamicin is not appropriate for monotherapy for gram-positive infections. Blood culture [[id number]] (Abnormal) Collected: 09/26/24 1845 Lab Status: Final result Specimen: Blood, Venous Updated: 10/01/24 0658 Blood Culture Methicillin Resistant Staphylococcus aureus Comment: isolated. Susceptibilities previously reported. Gram Stain Aerobic Bottle: Gram positive cocci in clusters Abscess/Wound Aspirate Culture, Aerobic & Anaerobic [[id number]] (Abnormal) Collected: 09/26/24 165 Lab Status: Final result Specimen: Abscess from Groin, Left Updated: 09/30/24 1551 Narrative: The following orders were created for panel order Abscess/Wound Aspirate Culture, Aerobic & Anaerobic. Procedure Abnormality Status --------- ------ Abscess/Wound Aspirate C...[[id number]] Abnormal Final result Anaerobic Culture[[id number]] Final result Please view results for these tests on the individual orders. Anaerobic Culture [[id number]] Collected: 09/26/24 165 Lab Status: Final result Specimen: Abscess from Groin, Left Updated: 09/30/24 1551 Anaerobic Culture No anaerobic organisms isolated Abscess/Wound Aspirate Culture, Aerobic & Anaerobic [[id number]] (Abnormal) Collected: 09/26/24 1702 Lab Status: Final result Specimen: Abscess from Knee, Left Updated: 09/30/24 1551 Narrative: The following orders were created for panel order Abscess/Wound Aspirate Culture, Aerobic & Anaerobic. Procedure Abnormality Status --------- ------ Abscess/Wound Aspirate C...[[id number]] Abnormal Final result Anaerobic Culture[[id number]] Final result Please view results for these tests on the individual orders. Anaerobic Culture [[id number]] Collected: 09/26/24 1702 Lab Status: Final result Specimen: Abscess from Knee, Left Updated: 09/30/24 1551 Anaerobic Culture No anaerobic organisms isolated Sonicated Tissue/Implant Culture [[id number]] (Abnormal) Collected: 09/26/24 1716 Lab Status: Final result Specimen: Vascular Graft from Leg, Left Updated: 09/30/24 1349 Sonicated Tissue/Implant Culture Methicillin Resistant Staphylococcus aureus Comment: isolated from broth culture. Susceptibilities previously reported. Abscess/Wound Aspirate Culture, Aerobic Only [[id number]] (Abnormal) (Susceptibility) Collected: 09/26/24 1702 Lab Status: [...] to doxycycline. Abscess/Wound Aspirate Culture, Aerobic Only [[id number]] (Abnormal) (Susceptibility) Collected: 09/26/24 1650 Lab Status: [...] 2nd toe amputation who was transferred from [facility] given concern for infected left fem-BK popliteal PTFE bypass. He is now s/p an explantof an infected left femoral-below knee popliteal artery bypass graft (09/26), I/D groin abscess (), L GSV harvest, vein patch angioplasty, L [employer] and BK pop w/ sartorius flap L [...] 81mg daily Benjamin Iniguez MD 10/06/2024 Pager: [phone] * Benjamin Iniguez MD - 10/05/2024 7:42 AM EST Images from the original note were not included. Vascular Surgery Progress Note Geovanna Dixon Jr. is a 49 y.o. 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 He presented to [facility] on 09/26 and went [...] WC acetaminophen 975 mg Oral Q6H [facility] atorvastatin 80 mg Oral QPM aspirin EC 81 mg Oral Daily methylphenidate 20 mg Oral TID pantoprazole EC 40 mg Oral Daily senna-docusate 2 tablet Oral BID venlafaxine XR 225 mg Oral Daily heparin (porcine) 5,000 Units Subcutaneous Q8H [facility] lidocaine 1 patch Transdermal Q24H [...] Procedure Component Value - Date/Time Blood culture [[id number]] Collected: 09/29/242123 Lab Status: Final result Specimen: Blood, Venous Updated: 10/04/24 230 Blood Culture No growth at 120 hours Blood culture [[id number]] Collected: 09/29/242123 Lab Status: Final result Specimen: Blood, Venous Updated: 10/04/24 2301 Blood Culture No growth at 120 hours AFB culture [[id number]] Collected: 09/26/24 1702 Lab Status: Preliminary result Specimen: Abscess from Knee, Left Updated: 10/04/24 1201 Acid Fast Bacilli Culture No acid fast bacilli isolated at 1 week. Acid Fast Stain No acid fast bacilli seen Blood culture [[id number]] Collected: 09/28/24 1749 Lab Status: Final result Specimen: Blood, Venous Updated: 10/03/24 1901 Blood Culture No growth at 120 hours Blood culture [[id number]] (Abnormal) Collected: 09/27/242132 Lab Status: Final result Specimen: Blood, Venous Updated: 10/02/24 0804 Blood Culture Methicillin Resistant Staphylococcus aureus Comment: Susceptibilities previously reported. Gram Stain Aerobic Bottle: Gram positive cocci in clusters Tissue Culture, Aerobic & Anaerobic [[id number]] Collected: 09/27/241653 Lab Status: Final result Specimen: Tissue from Thigh, Left Updated: 10/01/24 1554 Narrative: The following orders were created for panel order Tissue Culture, Aerobic & Anaerobic. Procedure Abnormality Status --------- ------ Tissue Culture, Aerobic ...[[id number]] Anaerobic Culture[[id number]] Final result Please view results for these tests on the individual orders. Anaerobic Culture [[id number]] Collected: 09/27/241653 Lab Status: Final result Specimen: Tissue from Thigh, Left Updated: 10/01/24 1554 Anaerobic Culture No anaerobic organisms isolated Tissue Culture, Aerobic Only [[id number]] (Abnormal) (Susceptibility) Collected: 09/27/241653 Lab Status: Final [...] is considered susceptible to doxycycline. Blood culture [[id number]] (Abnormal) (Susceptibility) Collected: 09/26/24 1422 Lab Status: Final result Specimen: Blood, Venous Updated: 10/01/24 0658 Blood Culture Methicillin Resistant Staphylococcus aureus Comment: detected by PCR Isolate saved. If future testing is required, contact the Microbiology Language Instructor. Gram Stain Aerobic Bottle: Gram positive cocci in clusters Susceptibility Methicillin Resistant Staphylococcus aureus VITEK 2 METHOD Clindamycin Resistant Gentamicin Susceptible [1] Linezolid Susceptible Oxacillin Resistant Trimethoprim/Sulfa Susceptible Vancomycin Susceptible [1] Gentamicin is not appropriate for monotherapy for gram-positive infections. Blood culture [[id number]] (Abnormal) Collected: 09/26/24 1845 Lab Status: Final result Specimen: Blood, Venous Updated: 10/01/24 0658 Blood Culture Methicillin Resistant Staphylococcus aureus Comment: isolated. Susceptibilities previously reported. Gram Stain Aerobic Bottle: Gram positive cocci in clusters Abscess/Wound Aspirate Culture, Aerobic & Anaerobic [[id number]] (Abnormal) Collected: 09/26/241649 Lab Status: Final result Specimen: Abscess from Groin, Left Updated: 09/30/24 1551 Narrative: The following orders were created for panel order Abscess/Wound Aspirate Culture, Aerobic & Anaerobic. Procedure Abnormality Status --------- ------ Abscess/Wound Aspirate C...[[id number]] Abnormal Final result Anaerobic Culture[[id number]] Final result Please view results for these tests on the individual orders. Anaerobic Culture [[id number]] Collected: 09/26/241649 Lab Status: Final result Specimen: Abscess from Groin, Left Updated: 09/30/24 1551 Anaerobic Culture No anaerobic organisms isolated Abscess/Wound Aspirate Culture, Aerobic & Anaerobic [[id number]] (Abnormal) Collected: 09/26/24 170 Lab Status: Final result Specimen: Abscess from Knee, Left Updated: 09/30/24 1551 Narrative: The following orders were created for panel order Abscess/Wound Aspirate Culture, Aerobic & Anaerobic. Procedure Abnormality Status --------- ------ Abscess/Wound Aspirate C...[[id number]] Abnormal Final result Anaerobic Culture[[id number]] Final result Please view results for these tests on the individual orders. Anaerobic Culture [[id number]] Collected: 09/26/24 170 Lab Status: Final result Specimen: Abscess from Knee, Left Updated: 09/30/24 1551 Anaerobic Culture No anaerobic organisms isolated Sonicated Tissue/Implant Culture [[id number]] (Abnormal) Collected: 09/26/24 1716 Lab Status: Final result Specimen: Vascular Graft from Leg, Left Updated: 09/30/24 1349 Sonicated Tissue/Implant Culture Methicillin Resistant Staphylococcus aureus Comment: isolated from broth culture. Susceptibilities previously reported. Abscess/Wound Aspirate Culture, Aerobic Only [[id number]] (Abnormal) (Susceptibility) Collected: 09/26/24 170 Lab Status: [...] to doxycycline. Abscess/Wound Aspirate Culture, Aerobic Only [[id number]] (Abnormal) (Susceptibility) Collected: 09/26/241649 Lab Status: Final [...] is considered susceptible to doxycycline. AFB culture [[id number]] Collected: 09/27/241653 Lab Status: Preliminary result Specimen: Tissue from Thigh, Left Updated: 09/29/24 1201 Acid Fast Bacilli Culture No acid fast bacilli isolated to date. Acid Fast Stain No acid fast bacilli seen Fungus culture [[id number]] Collected: 09/27/241653 Lab Status: Preliminary result Specimen: [...] 2nd toe amputation who was transferred from [facility] given concern for infected left fem-BK popliteal PTFE bypass. He is now s/p an explantof an infected left femoral-below knee popliteal artery bypass graft (09/26), I/D groin abscess (), L GSV harvest, vein patch angioplasty, L [employer] and BK pop w/ sartorius flap L [...] 81mg daily Benjamin Iniguez MD 10/05/2024 Pager: [phone] Associated attestation - Hayley Torres MD - [...] aspirate- MRSA Antimicrobials: Vancomycin- Imaging/diagnostics: CT lower [id number]/20 IMPRESSION: 1. Interval explant of LEFT femoral [...] male who underwent a left lower extremity enqtgxc-fe-jntnl-kneepopliteal artery bypass on August 01, 2024, and [...] concerns. Please page ID Green team (pager [phone]) with questions or concerns. Lynne Leavitt MD Fellow, Infectious Disease Pager: [phone] Epic Chat 10/02/2024 This note was created using [employer]) voice recognition software. Associated attestation - Amaya [...] Procedure Component Value - Date/Time Blood culture [[id number]] Collected: 09/29/242123 Lab Status: Final result Specimen: Blood, Venous Updated: 10/04/24 2301 Blood Culture No growth at 120 hours Blood culture [[id number]] Collected: 09/29/242123 Lab Status: Final result Specimen: Blood, Venous Updated: 10/04/24 2301 Blood Culture No growth at 120 hours AFB culture [[id number]] Collected: 09/26/24 170 Lab Status: Preliminary result Specimen: Abscess from Knee, Left Updated: 10/04/24 120 Acid Fast Bacilli Culture No acid fast bacilli isolated at 1 week. Acid Fast Stain No acid fast bacilli seen Blood culture [[id number]] Collected: 09/28/24 1749 Lab Status: Final result Specimen: Blood, Venous Updated: 10/03/24 1901 Blood Culture No growth at 120 hours Blood culture [[id number]] (Abnormal) Collected: 09/27/242132 Lab Status: Final result Specimen: Blood, Venous Updated: 10/02/24 0804 Blood Culture Methicillin Resistant Staphylococcus aureus Comment: Susceptibilities previously reported. Gram Stain Aerobic Bottle: Gram positive cocci in clusters Tissue Culture, Aerobic & Anaerobic [[id number]] Collected: 09/27/241653 Lab Status: Final result Specimen: Tissue from Thigh, Left Updated: 10/01/24 155 Narrative: The following orders were created for panel order Tissue Culture, Aerobic & Anaerobic. Procedure Abnormality Status --------- ------ Tissue Culture, Aerobic ...[[id number]] Anaerobic Culture[[id number]] Final result Please view results for these tests on the individual orders. Anaerobic Culture [[id number]] Collected: 09/27/241653 Lab Status: Final result Specimen: Tissue from Thigh, Left Updated: 10/01/24 155 Anaerobic Culture No anaerobic organisms isolated Tissue Culture, Aerobic Only [[id number]] (Abnormal) (Susceptibility) Collected: 11/20/24 1654 Lab Status: [...] is considered susceptible to doxycycline. Blood culture [[id number]] (Abnormal) (Susceptibility) Collected: 09/26/24 1422 Lab Status: Final result Specimen: Blood, Venous Updated: 10/01/24 0658 Blood Culture Methicillin Resistant Staphylococcus aureus Comment: detected by PCR Isolate saved. If future testing is required, contact the Microbiology Language Instructor. Gram Stain Aerobic Bottle: Gram positive cocci in clusters Susceptibility Methicillin Resistant Staphylococcus aureus VITEK 2 METHOD Clindamycin >=8.0 ug/ml Resistant Gentamicin <=0.5 ug/ml Susceptible [1] Linezolid 2.0 ug/ml Susceptible Oxacillin >=4.0 ug/ml Resistant Trimethoprim/Sulfa <=10.0 ug/ml Susceptible Vancomycin 1.0 ug/ml Susceptible [1] Gentamicin is not appropriate for monotherapy for gram-positive infections. Blood culture [[id number]] (Abnormal) Collected: 09/26/24 1845 Lab Status: Final result Specimen: Blood, Venous Updated: 10/01/24 0658 Blood Culture Methicillin Resistant Staphylococcus aureus Comment: isolated. Susceptibilities previously reported. Gram Stain Aerobic Bottle: Gram positive cocci in clusters Abscess/Wound Aspirate Culture, Aerobic & Anaerobic [[id number]] (Abnormal) Collected: 09/26/24 1650 Lab Status: Final result Specimen: Abscess from Groin, Left Updated: 09/30/24 1551 Narrative: The following orders were created for panel order Abscess/Wound Aspirate Culture, Aerobic & Anaerobic. Procedure Abnormality Status --------- ------ Abscess/Wound Aspirate C...[[id number]] Abnormal Final result Anaerobic Culture[[id number]] Final result Please view results for these tests on the individual orders. Anaerobic Culture [[id number]] Collected: 09/26/24 1650 Lab Status: Final result Specimen: Abscess from Groin, Left Updated: 09/30/24 1551 Anaerobic Culture No anaerobic organisms isolated Abscess/Wound Aspirate Culture, Aerobic & Anaerobic [[id number]] (Abnormal) Collected: 09/26/24 1702 Lab Status: Final result Specimen: Abscess from Knee, Left Updated: 09/30/24 1551 Narrative: The following orders were created for panel order Abscess/Wound Aspirate Culture, Aerobic & Anaerobic. Procedure Abnormality Status --------- ------ Abscess/Wound Aspirate C...[[id number]] Abnormal Final result Anaerobic Culture[[id number]] Final result Please view results for these tests on the individual orders. Anaerobic Culture [[id number]] Collected: 09/26/24 170 Lab Status: Final result Specimen: Abscess from Knee, Left Updated: 09/30/24 1551 Anaerobic Culture No anaerobic organisms isolated Sonicated Tissue/Implant Culture [[id number]] (Abnormal) Collected: 09/26/24 1716 Lab Status: Final result Specimen: Vascular Graft from Leg, Left Updated: 09/30/24 1349 Sonicated Tissue/Implant Culture Methicillin Resistant Staphylococcus aureus Comment: isolated from broth culture. Susceptibilities previously reported. Abscess/Wound Aspirate Culture, Aerobic Only [[id number]] (Abnormal) (Susceptibility) Collected: 09/26/24 1702 Lab Status: [...] to doxycycline. Abscess/Wound Aspirate Culture, Aerobic Only [[id number]] (Abnormal) (Susceptibility) Collected: 09/26/241649 Lab Status: Final [...] is considered susceptible to doxycycline. AFB culture [[id number]] Collected: 09/27/241653 Lab Status: Preliminary result Specimen: Tissue from Thigh, Left Updated: 09/29/24 1201 Acid Fast Bacilli Culture No acid fast bacilli isolated to date. Acid Fast Stain No acid fast bacilli seen Fungus culture [[id number]] Collected: 09/27/241653 Lab Status: Preliminary result Specimen: [...] Diet NPO Monitoring: Q4 Fawn Cunningham APRN [facility] Endocrinology Diabetes Management Pager [phone] Weekends please page [phone] 35 minutes were spent over the course [...] 2nd toe amputation who was transferred from [facility] given concern for infected left fem-BK [...] smoking 1 week ago. He presented to [facility] on 09/26 and went [...] heparin (porcine) 5,000 Units Subcutaneous Q8H [facility] lidocaine 1 patch Transdermal Q24H [...] Procedure Component Value - Date/Time Blood culture [[id number]] Collected: 09/29/242123 Lab Status: Preliminary result Specimen: Blood, Venous Updated: 10/03/24 230 Blood Culture No growth at 96 hours Blood culture [[id number]] Collected: 09/29/242123 Lab Status: Preliminary result Specimen: Blood, Venous Updated: 10/03/24 2301 Blood Culture No growth at 96 hours Blood culture [[id number]] Collected: 09/28/24 1749 Lab Status: Final result Specimen: Blood, Venous Updated: 10/03/24 1901 Blood Culture No growth at 120 hours Blood culture [[id number]] (Abnormal) Collected: 09/27/24 213 Lab Status: Final result Specimen: Blood, Venous Updated: 10/02/24 0804 Blood Culture Methicillin Resistant Staphylococcus aureus Comment: Susceptibilities previously reported. Gram Stain Aerobic Bottle: Gram positive cocci in clusters Tissue Culture, Aerobic & Anaerobic [[id number]] Collected: 09/27/24 1654 Lab Status: Final result Specimen: Tissue from Thigh, Left Updated: 10/01/24 1554 Narrative: The following orders were created for panel order Tissue Culture, Aerobic & Anaerobic. Procedure Abnormality Status --------- ------ Tissue Culture, Aerobic ...[[id number]] Anaerobic Culture[[id number]] Final result Please view results for these tests on the individual orders. Anaerobic Culture [[id number]] Collected: 09/27/24 165 Lab Status: Final result Specimen: Tissue from Thigh, Left Updated: 10/01/24 1554 Anaerobic Culture No anaerobic organisms isolated Tissue Culture, Aerobic Only [[id number]] (Abnormal) (Susceptibility) Collected: 09/27/24 165 Lab Status: [...] is considered susceptible to doxycycline. Blood culture [[id number]] (Abnormal) (Susceptibility) Collected: 09/26/24 1422 Lab Status: Final result Specimen: Blood, Venous Updated: 10/01/24 0658 Blood Culture Methicillin Resistant Staphylococcus aureus Comment: detected by PCR Isolate saved. If future testing is required, contact the Microbiology Language Instructor. Gram Stain Aerobic Bottle: Gram positive cocci in clusters Susceptibility Methicillin Resistant Staphylococcus aureus VITEK 2 METHOD Clindamycin Resistant Gentamicin Susceptible [1] Linezolid Susceptible Oxacillin Resistant Trimethoprim/Sulfa Susceptible Vancomycin Susceptible [1] Gentamicin is not appropriate for monotherapy for gram-positive infections. Blood culture [[id number]] (Abnormal) Collected: 09/26/24 1845 Lab Status: Final result Specimen: Blood, Venous Updated: 10/01/24 0658 Blood Culture Methicillin Resistant Staphylococcus aureus Comment: isolated. Susceptibilities previously reported. Gram Stain Aerobic Bottle: Gram positive cocci in clusters Abscess/Wound Aspirate Culture, Aerobic & Anaerobic [[id number]] (Abnormal) Collected: 09/26/24 1650 Lab Status: Final result Specimen: Abscess from Groin, Left Updated: 09/30/24 1551 Narrative: The following orders were created for panel order Abscess/Wound Aspirate Culture, Aerobic & Anaerobic. Procedure Abnormality Status --------- ------ Abscess/Wound Aspirate C...[[id number]] Abnormal Final result Anaerobic Culture[[id number]] Final result Please view results for these tests on the individual orders. Anaerobic Culture [[id number]] Collected: 09/26/24 1650 Lab Status: Final result Specimen: Abscess from Groin, Left Updated: 09/30/24 1551 Anaerobic Culture No anaerobic organisms isolated Abscess/Wound Aspirate Culture, Aerobic & Anaerobic [[id number]] (Abnormal) Collected: 09/26/24 170 Lab Status: Final result Specimen: Abscess from Knee, Left Updated: 09/30/24 1551 Narrative: The following orders were created for panel order Abscess/Wound Aspirate Culture, Aerobic & Anaerobic. Procedure Abnormality Status --------- ------ Abscess/Wound Aspirate C...[[id number]] Abnormal Final result Anaerobic Culture[[id number]] Final result Please view results for these tests on the individual orders. Anaerobic Culture [[id number]] Collected: 09/26/24 1702 Lab Status: Final result Specimen: Abscess from Knee, Left Updated: 09/30/24 1551 Anaerobic Culture No anaerobic organisms isolated Sonicated Tissue/Implant Culture [[id number]] (Abnormal) Collected: 09/26/24 1716 Lab Status: Final result Specimen: Vascular Graft from Leg, Left Updated: 09/30/24 1349 Sonicated Tissue/Implant Culture Methicillin Resistant Staphylococcus aureus Comment: isolated from broth culture. Susceptibilities previously reported. Abscess/Wound Aspirate Culture, Aerobic Only [[id number]] (Abnormal) (Susceptibility) Collected: 09/26/24 1702 Lab Status: [...] to doxycycline. Abscess/Wound Aspirate Culture, Aerobic Only [[id number]] (Abnormal) (Susceptibility) Collected: 09/26/24 1650 Lab Status: [...] is considered susceptible to doxycycline. AFB culture [[id number]] Collected: 09/27/24 165 Lab Status: Preliminary result Specimen: Tissue from Thigh, Left Updated: 09/29/24 1201 Acid Fast Bacilli Culture No acid fast bacilli isolated to date. Acid Fast Stain No acid fast bacilli seen AFB culture [[id number]] Collected: 09/26/24 1702 Lab Status: Preliminary result Specimen: Abscess from Knee, Left Updated: 09/29/24 1201 Acid Fast Bacilli Culture No acid fast bacilli isolated to date. Acid Fast Stain No acid fast bacilli seen Fungus culture [[id number]] Collected: 09/27/24 165 Lab Status: Preliminary result Specimen: Tissue from Thigh, Left Updated: 09/28/24 0748 Fungus Culture No fungus isolated to date MRSA PCR Screen [[id number]] (Abnormal) Collected: 09/27/24 0751 Lab Status: Final result Specimen: Swab from Nares Updated: 09/27/24 1156 MRSA PCR Detected Narrative: This test was performed using the Xpert MRSA NxG test kit and is run on the [employer] GeneXpert Dx System. This test is cleared by the [place] Food and Drug Administration for clinical use and its performance characteristics have been verified by the [facility] at [facility]. New Studies: - None Assessment & Plan: Geovanna Dixon Jr. is a 49 y.o. male with a history of HTN, HLD, NSTEMI, CAD s/p CABG (12/2011), DM,obesity, PAD s/p L iliofem endart and L fem-BK pop bypass and L 2nd toe amputation who was transferred from [facility] given concern for infected left fem-BK popliteal PTFE bypass. 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 Summer Intern met pt at bedside. Pt sharedthat his [...] nausea and no vomiting Last Bowel Movement: (HOSPICE SUPERINTENDENT- MD made aware) Patient education / questions: all nutrition related questions answered at this time Nutrition services to follow weekly through hospital course unless consulted in the interim. [facility] * Jessica Renae, PT - 10/03/2024 11:30 AM EST Physical Therapy Evaluation Patient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 2nd toe amputation who was transferred from [facility] given concern for infected left fem-BK popliteal PTFE bypass. He is now s/p an explantof an infected left femoral-below knee popliteal artery bypass graft (09/26), I/D groin abscess (), L GSV harvest, vein patch angioplasty, L REGIONAL SALES DIRECTOR and BK pop w/ sartorius flap L [...] SQH TID Antiplatelet: ASA 81 María Carranza, SPORTS PHYSICAL THERAPIST 10/01/2024 Pager: [phone] * Karolyn Hudson MD - 09/30/2024 11:21 AM EST Images from the original note were not included. Vascular Surgery Progress Note Patient ID Geovanna Dixon Jr. is a 49 y.o. 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 He presented to [facility] on 09/26 and went [...] Procedure Component Value - Date/Time Blood culture [[id number]] (Abnormal) Collected: 09/27/24 2133 Lab Status: Preliminary result Specimen: Blood, Venous Updated: 09/30/24 0718 Blood Culture Methicillin Resistant Staphylococcus aureus Comment: Susceptibilities previously reported. Gram Stain Aerobic Bottle: Gram positive cocci in clusters Blood culture [[id number]] Collected: 09/28/24 1749 Lab Status: Preliminary result Specimen: Blood, Venous Updated: 09/29/24 1901 Blood Culture No Growth at 18-24 hrs. AFB culture [[id number]] Collected: 09/27/24 1654 Lab Status: Preliminary result Specimen: Tissue from Thigh, Left Updated: 09/29/24 1201 Acid Fast Bacilli Culture No acid fast bacilli isolated to date. Acid Fast Stain No acid fast bacilli seen AFB culture [[id number]] Collected: 09/26/24 1702 Lab Status: Preliminary result Specimen: Abscess from Knee, Left Updated: 09/29/24 1201 Acid Fast Bacilli Culture No acid fast bacilli isolated to date. Acid Fast Stain No acid fast bacilli seen Sonicated Tissue/Implant Culture [[id number]] (Abnormal) Collected: 09/26/24 1716 Lab Status: Preliminary result Specimen: Vascular Graft from Leg, Left Updated: 09/29/24 1132 Sonicated Tissue/Implant Culture Methicillin Resistant Staphylococcus aureus Comment: isolated from broth culture. Susceptibilities previously reported. Tissue Culture, Aerobic Only [[id number]] (Abnormal) (Susceptibility) Collected: 09/27/24 1654 Lab Status: [...] is considered susceptible to doxycycline. Blood culture [[id number]] (Abnormal) Collected: 09/26/24 1845 Lab Status: Preliminary result Specimen: Blood, Venous Updated: 09/29/24 0719 Blood Culture Methicillin Resistant Staphylococcus aureus Comment: isolated. Susceptibilities previously reported. Gram Stain Aerobic Bottle: Gram positive cocci in clusters Blood culture [[id number]] (Abnormal) (Susceptibility) Collected: 09/26/24 1422 Lab Status: Preliminary result Specimen: Blood, Venous Updated: 09/29/24 0717 Blood Culture Methicillin Resistant Staphylococcus aureus Comment: detected by PCR Isolate saved. If future testing is required, contact the Microbiology Language Instructor. Gram Stain Aerobic Bottle: Gram positive cocci in clusters Susceptibility Methicillin Resistant Staphylococcus aureus VITEK 2 METHOD Clindamycin Resistant Gentamicin Susceptible [1] Linezolid Susceptible Oxacillin Resistant Trimethoprim/Sulfa Susceptible Vancomycin Susceptible [1] Gentamicin is not appropriate for monotherapy for gram-positive infections. Anaerobic Culture [[id number]] Collected: 09/27/24 165 Lab Status: Preliminary result Specimen: Tissue from Thigh, Left Updated: 09/28/24 1355 Anaerobic Culture No anaerobic organisms isolated to date Abscess/Wound Aspirate Culture, Aerobic Only [[id number]] (Abnormal) (Susceptibility) Collected: 09/26/24 1702 Lab Status: [...] to doxycycline. Abscess/Wound Aspirate Culture, Aerobic Only [[id number]] (Abnormal) (Susceptibility) Collected: 09/26/241649 Lab Status: Preliminary [...] is considered susceptible to doxycycline. Fungus culture [[id number]] Collected: 09/27/241653 Lab Status: Preliminary result Specimen: Tissue from Thigh, Left Updated: 09/28/24 0748 Fungus Culture No fungus isolated to date MRSA PCR Screen [[id number]] (Abnormal) Collected: 09/27/24 0751 Lab Status: Final result Specimen: Swab from Nares Updated: 09/27/24 1156 MRSA PCR Detected Narrative: This test was performed using the Xpert MRSA NxG test kit and is run on the [employer] GeneXrSmart Dx System. This test is cleared by the U.S. Food and Drug Administration for clinical use and its performance characteristics have been verified by the [facility] at [facility]. Anaerobic Culture [[id number]] Collected: 09/26/241649 Lab Status: Preliminary result Specimen: Abscess from Groin, Left Updated: 09/27/24 1142 Anaerobic Culture No anaerobic organisms isolated to date Anaerobic Culture [[id number]] Collected: 09/26/24 1702 Lab Status: Preliminary result Specimen: Abscess from Knee, Left Updated: 09/27/24 1142 Anaerobic Culture No anaerobic organisms isolated to date Fungus culture [[id number]] Collected: 09/26/241649 Lab Status: Preliminary result Specimen: Abscess from Groin, Left Updated: 09/27/24 0727 Fungus Culture No fungus isolated to date Fungus culture [[id number]] Collected: 09/26/24 1702 Lab Status: Preliminary result Specimen: Abscess from Knee, Left Updated: 09/27/24 07 Fungus Culture No fungus isolated to date New Studies Results for orders placed or performed during the hospital encounter of 09/26/24 Request For 2nd Read CT Lower Extremity (Exam End: 09/26/2024 1:50 PM) Result Value WORKSTATION ID [id number] Impression 1. There is a left femoral [...] have questions please contact the health healthcare insurance sales agent that requested your imaging first. Electronically signed by: Lisette Bruno MD, [facility] ([phone]), at 09/26/2024 3:[address] Lower Extremity w Contrast Left (Exam End: 09/27/2024 9:16 AM) Result Value WORKSTATION ID [id number] Impression IMPRESSION: 1. Interval explant of LEFT [...] have questions please contact the health healthcare insurance sales agent that requested your imaging first. 09/28 ABIs [...] 2nd toe amputation who was transferred from [facility] given concern for infected left fem-BK [...] at proximal and distal anastomoses and a Bloomfield drain placed from left groin to left thigh. The retained grafts have since been removed, with Bloomfield drains in the L groin and thigh [...] Labs 09/28/24 1516 PHART 7.42 PO2ART 103 [id number] 39 LACTATEART 1.1 BEART 0.2 Is this [...] 1643 PHART 7.42 7.38 PO2ART 103 96 [id number] 41 LACTATEART 1.1 1.7 BEART 0.2 [...] Thank you, Renea Nunez, MS, RD, LD, [facility] Clinical Nutrition * Mariya Shi [...] Diet CC Monitoring: Q4 Fawn Cunningham APRN [facility] Endocrinology Diabetes Management Pager [phone] Weekends please page [phone] 35 minutes were spent over the course [...] Labs 09/26/24 1643 PHART 7.38 PO2ART 96 [id number] 41 LACTATEART 1.7 BEART -1.4 Is this [...] 2nd toe amputation who was transferred from [facility] given concern for infected left fem-BK [...] smoking 1 week ago. He presented to [facility] on 09/26 and went [...] BID insulin lispro 1-6 Units Subcutaneous Q4H JSOE insulin lispro 0-11 Units Subcutaneous TID WC [...] Procedure Component Value - Date/Time Fungus culture [[id number]] Collected: 09/27/24 1654 Lab Status: Preliminary result Specimen: Tissue from Thigh, Left Updated: 09/28/24 0748 Fungus Culture No fungus isolated to date Blood culture [[id number]] (Abnormal) Collected: 09/26/24 1845 Lab Status: Preliminary result Specimen: Blood, Venous Updated: 09/28/24 0711 Blood Culture Methicillin Resistant Staphylococcus aureus Comment: isolated. Susceptibility testing in progress. Gram Stain Aerobic Bottle: Gram positive cocci in clusters AFB culture [[id number]] Collected: 09/26/24 170 Lab Status: Preliminary result Specimen: Abscess from Knee, Left Updated: 09/27/24 2335 Acid Fast Stain No acid fast bacilli seen Tissue Culture, Aerobic Only [[id number]] Collected: 09/27/24 165 Lab Status: Preliminary result Specimen: Tissue from Thigh, Left Updated: 09/27/24 1810 Gram Stain Few Neutrophils seen No microorganisms seen Abscess/Wound Aspirate Culture, Aerobic Only [[id number]] (Abnormal) Collected: 09/26/24 170 Lab Status: Preliminary result Specimen: Abscess from Knee, Left Updated: 09/27/24 1520 Abscess/Wound Aspirate Culture Many Staphylococcus aureus Gram Stain Many neutrophils Many Gram positive cocci Abscess/Wound Aspirate Culture, Aerobic Only [[id number]] (Abnormal) Collected: 09/26/24 165 Lab Status: Preliminary result Specimen: Abscess from Groin, Left Updated: 09/27/24 1519 Abscess/Wound Aspirate Culture Many Staphylococcus aureus Gram Stain Many neutrophils Many Gram positive cocci Blood culture [[id number]] (Abnormal) Collected: 09/26/24 1422 Lab Status: Preliminary result Specimen: Blood, Venous Updated: 09/27/24 1320 Blood Culture Methicillin Resistant Staphylococcus aureus Comment: detected by PCR Gram Stain Aerobic Bottle: Gram positive cocci in clusters MRSA PCR Screen [[id number]] (Abnormal) Collected: 09/27/24 0751 Lab Status: Final result Specimen: Swab from Nares Updated: 09/27/24 1156 MRSA PCR Detected Narrative: This test was performed using the Xpert MRSA NxG test kit and is run on the [employer] GeneXrSmart Dx System. This test is cleared by the U.S. Food and Drug Administration for clinical use and its performance characteristics have been verified by the [facility] at [facility]. Anaerobic Culture [[id number]] Collected: 09/26/24 165 Lab Status: Preliminary result Specimen: Abscess from Groin, Left Updated: 09/27/24 1142 Anaerobic Culture No anaerobic organisms isolated to date Anaerobic Culture [[id number]] Collected: 09/26/24 170 Lab Status: Preliminary result Specimen: Abscess from Knee, Left Updated: 09/27/24 1142 Anaerobic Culture No anaerobic organisms isolated to date Fungus culture [[id number]] Collected: 09/26/24 1650 Lab Status: Preliminary result Specimen: Abscess from Groin, Left Updated: 09/27/24726 Fungus Culture No fungus isolated to date Fungus culture [[id number]] Collected: 09/26/24 1702 Lab Status: Preliminary result Specimen: Abscess from Knee, Left Updated: 09/27/24726 Fungus Culture No fungus isolated to date New Studies Results for orders placed or performed during the hospital encounter of 09/26/24 Request For 2nd Read CT Lower Extremity (Exam End: 09/26/2024 1:50 PM) Result Value WORKSTATION ID [id number] Impression 1. There is a left femoral [...] have questions please contact the health healthcare insurance sales agent that requested your imaging first. Electronically signed by: Lisette Bruno MD, [facility] ([phone]), at 09/26/2024 3:[address] Lower Extremity w Contrast Left (Exam End: 09/27/2024 9:16 AM) Result Value WORKSTATION ID [id number] Impression IMPRESSION: 1. Interval explant of LEFT [...] have questions please contact the health healthcare insurance sales agent that requested your imaging first. Electronically signed by: Ignacia Chi MD, [facility] ([phone]), at 09/27/2024 10:48 AM Assessment & Plan Geovanna Dixon Jr. is a 49 y.o. male with a history of HTN, HLD, NSTEMI, CAD s/p CABG (12/2011), DM,obesity, PAD s/p L iliofem endart and L fem-BK pop bypass and L 2nd toe amputation who was transferred from [facility] given concern for infected left fem-BK [...] Kita Hodge - 09/27/2024 3:58 PM EST Utility Service Worker Encounter Note Patient Name: Geovanna Dixon Jr. : [id number] MR#: [id number] Admit Date: 09/26/2024 2:08 PM Hospital Day 1 day Narrative: Inside Phone Sales initiated visit with patient during rounds on the unit. Patient indicated that he was not latter day. He reported that he was in less [...] Labs 09/26/24 1643 PHART 7.38 PO2ART 96 [id number] 41 LACTATEART 1.7 BEART -1.4 Is this [...] 2nd toe amputation who was transferred from [facility] given concern for infected left fem-BK [...] smoking 1 week ago. He presented to [facility] on 09/26 and went [...] 2nd toe amputation who was transferred from [facility] given concern for infected left fem-BK popliteal PTFE bypass. He is now s/p an explantof an infected left femoral-below knee popliteal artery bypass graft. Significant purulence under pr essure was seen intraoperatively, surrounding the entire bypass at proximal and distal anastomoses as well as the tunnel. There are retained grafts left at proximal and distal anastomoses, and a Bloomfield drain placed from left groin to left [...] graft associated infection. The patient presented to [facility] ED on 09/26 for evaluation of [...] remained hemodynamically stable during his time at [facility] and was transported by ground to [facility] for vascular surgery consultation. [...] 3.51) performed by Thony Garcia MD at [facility] MAIN OR PRO BYPASS GRAFT OTHR, FEM-TIBIAL Left 08/01/2024 @BYPASS GRAFT, FEM-ANT TIBIAL, -POST TIBIAL, -PERONEAL, -DP W\ SYNTHETIC CONDUIT (WRVU 23.66) performed by Lisette Maldonado MD at [facility] MAIN OR PRO CABG, ARTERY-VEIN, SINGLE 01/04/2012 @CABG, VENOUS & ARTERIAL GRAFT;SINGLE VEIN GRAFT performed by INNA TOVAR at [facility] MAIN OR PRO ENDOSCOPY W/VIDEO-ASST VEIN HARVEST, CABG 01/04/2012 ENDOSCOPIC HARVEST VEIN(S) FOR CABG performed by INNA TOVAR at [facility] MAIN OR VS ARTERIOGRAM LOWER EXTREMITY VASCULAR SURGERY 07/20/2024 VS Arteriogram Lower Extremity Vascular Surgery 07/20/2024 Anabel Finney MD [facility] INTERVENTIONL RAD Prior To Admission Medications: Medications [...] 3 times daily. Use as instructed Indications: [id number] each 1 Past Week FreeStyle Lancets 28 [...] 200 - 393 mg/dL Type and screen ([facility]/AYANAP/BABITA) Result Value Ref Range ABORH Type A POSITIVE PATIENT HISTORY Found Expires at 2359 on: 09/29/2024 ANTIBODY SCREEN AUTOMATED Negative T&S only valid at [facility] LAB CBC (with Diff) [...] 09/26/2024 1:50 PM) Result Value WORKSTATION ID [id number] Impression 1. There is a left femoral [...] have questions please contact the health healthcare insurance sales agent that requested your imaging first. Electronically signed by: Lisette Bruno MD, [facility] ([phone]), at 09/26/2024 3:01 PM Assessment/Plan: Geovanna Dixon [...] to the planned procedure. Hand Hygiene: The corporate travel coordinator did perform hand hygiene prior to line insertion. Catheter type: PICC Lot number: [id number] Procedure Technique: Skin was prepped with chlorhexidine. [...] to the planned procedure. Hand Hygiene: The corporate travel coordinator did perform hand hygiene prior to line insertion. Catheter type: PICC Lot number: [id number] Procedure Technique: Skin was prepped with chlorhexidine. [...] Outcome: Outcome (s) achieved 10/10/2024 133 by Terlel Araiza RN Outcome: Ongoing (Interventions [...] tomorrow afternoon. Home Vac: I have called [facility] Inventory and they they have now delivered the home ActiVac serial # [id number]. Pt reviewed the [facility] ActiVac Proof of Delivery/Assignment of Benefits (POD/AOB)form and signed it; she has copy of this and the [facility] Patient Copy letter along with the supplies, I will fax copy of the POD/AOB to [facility]. Needs for Transition of Care: Plan for discharge is: Home w/ Services Outpatient Agency/Support Group Needs: Homecare agency Outpatient IV Medications - IV Access: Access Ordered Location: Home, Referred to [facility] Coordination, Referred to [facility] Services: Occupational Therapy, Physical Therapy, Registered Nurse Agency Referrals & Follow-up Care: [place] [address] [facility] [id number] Transportation: family or friend will provide Functional status prior to admission: Independent Home Environment: Others in the home: sibling(s), other (see comments) (lives with his sister delmy and brother in law). Current Living Arrangements: home/apartment/condo. Accessibility Concerns: . Current Functional Ability: Assistive Person and Equipment DME used at home: none Other DME Needs: Wound Vac Provider: [facility] Patient is insured through: Primary Insurance: [employer] MANAGED MEDICARE Payor: [employer] MA[employer]GED MEDICARE / Plan: [employer] MANAGED MEDICARE PPO / Product Type: *No [...] Pain Flowsheets Taken 10/09/20242022 Pain Management Interventions: lwusrp-xtl-bhxik dosing utilized care clustered diversional activity provided [...] from the [place] [address] [facility] Vascular Access Service Peripherally Inserted Central Catheter (PICC) Teaching Sheet Peripherally inserted central catheters (tfsn-hw-izuf) (PICC) are used when you need IV [...] midline catheter? PICC lines are used for manager terminal treatments. PICC lines may be used for [...] can be set up via the nurse Carpet Jack to help you. What are possible complications [...] Vascular Access Device Selection, Insertion, and Management, [employer] 08/12. A Review of the Efficacy, Safety, Use, and Administration of Cathflo, [employer] 2005 * Care Management - Cristina [...] through: Primary Insurance: [employer] MANAGED MEDICARE Payor: [employer] MEDICARE / Plan: [employer] MANAGED MEDICARE PPO / Product Type: *No [...] Ordered Location: Home, Referred to [facility] Coordination Home Health Services: Occupational Therapy, Physical Therapy, Registered Nurse- will remove PT, OT Agency Referrals: [facility] and [facility] for IV abx. [facility] can come [...] 9:00 AM EST OFFICE OF CARE MANAGEMENT Carpet Jack Follow-up Note Cristina Turner RN reviewed record [...] medically ready. Current Referral in place: VNA: [facility] Wound vac ordered in Cuffed and Wanted System for home wound vac and order emailed to: María for signature. Carpet Jack to follow with team and family to [...] where referrals are placed. Request referral to [place], [place] for IV abx or . Expected date of discharge: 10/11. Patient will require teaching. Referral routed to the Slip Caster for matching with agency/vendor and to provide [...] care clustered diversional activity provided position adjusted dddibk-giq-tscrr dosing utilized pain management plan reviewed with [...] have. Alternately, during off-hours you may call [phone] to contact a pharmacist. * Plan of Care - Jordyn Navas RN - 10/07/2024 7:21 PM EST OUTCOME EVALUATION NOTE: OUTCOME SUMMARY: Transferred to unit at 1730 from [facility] - VSS, Meds/Assessments as charted, Frequent safety [...] EST PICC line placed today for senior living ABX. Neurovascular checks unchanged. Good oral intake [...] from the [place] [address] [facility] Vascular Access Service Peripherally Inserted Central Catheter (PICC) Teaching Sheet Peripherally inserted central catheters (gkqu-em-nfpb) (PICC) are used when you need IV [...] catheter? PICC lines are used for senior living treatments. PICC lines may be used for [...] can be set up via the nurse Carpet Jack to help you. What are possible complications [...] Vascular Access Device Selection, Insertion, and Management, [employer] 08/12. A Review of the Efficacy, Safety, Use, and Administration of Cathflo, [employer] 2005 * Care Management - Vibha [...] No Patient is insured through: Primary Insurance: [employer] MANAGED MEDICARE Payor: [employer] MANAGED MEDICARE / Plan: [employer] MANAGED MEDICARE PPO / Product Type: *No [...] of Discharge: 10/10/2024 Vibha Wahl RN-BSN-CM Pager: [phone] * Consult Note - Stormy Muller [facility] - 10/06/2024 9:19 AM EST [facility] Pharmacokinetics Note Drug: Vancomycin Pharmacokinetic target: AUC24 (range) 400-600 mg/L.hr Current regimen: 1250 mg IV every 8 hours Geovanna Dixon is a(n) 49 years old male receiving Vancomycin 1250 mg IV every 8 hours for MRSA bacteremia/graft infection Recent measured serum creatinine values: 10/06/2024 00:03 0.85 mg/dL 10/04/2024 23:50 0.55 mg/dL 10/04/2024 00:08 0.56 mg/dL Assessment: Analysis of the most recent level(s) using [employer]Finder gives the following patient-specific pharmacokinetic parameters: CL: [...] in a steady-state trough of 14.6 mg/L [id number] of 508 mg/L.hr. Recommendations: - SCr has risen and AUC is now above target goal. Reducing dose to Vancomycin 1000 mg IV every 8 hours - Obtain Vancomycin level in ~48 hours - Continue to monitor serum creatinine Stormy Mluler * Plan of Care - Melia Whitehead RN - 10/06/2024 5:46 AM EST OUTCOME EVALUATION NOTE: OUTCOME SUMMARY: Patient is AO x 4, VSS on RA.NSR on tele. BP maintained with PRN given 1x. Pain controlled by PRN. Wound vac remains intact - wound vac machine changed due to leak secured and working well. RYA drainswith minimal to no output. Neurovascular check [...] Meeks MD - 10/04/2024 5:01 PM EST [facility] Operative Note Patient Name: Geovanna Dixon Jr. : [id number] MR#: [id number] Case Date: 10/04/2024 Surgeon: Surgeons and Role: * Marko Dickson MD - Primary * Cristino Meeks MD - Resident - Assisting Preoperative diagnosis: Status post explant of infected left REGIONAL SALES DIRECTOR-BK pop bypass graft Postoperative diagnosis: Status post explant of infected left REGIONAL SALES DIRECTOR-BK pop bypass graft Procedure(s) (LRB): DEBRIDEMENT SKIN [...] 2nd toe amputation who was transferred from [facility] given concern for infected left fem-BK popliteal PTFE bypass. He is now s/p an explant of an infected left femoral-below knee popliteal artery bypass graft on 09/26 followed by I/D posterior thigh abscess on 09/27 then left GSV harvest, total explant of remaining PTFE then vein patch angioplasty of the left REGIONAL SALES DIRECTOR and BK popliteal artery on 09/28 then [...] Note Patient Name: Geovanna Dixon Jr. : [id number] MR#: [id number] Case Date: 10/04/2024 Surgeon: Surgeons and Role: * Marko Dickson MD - Primary * Cristino Meeks MD - Resident - Assisting Preoperative diagnosis: Status post explant of infected left REGIONAL SALES DIRECTOR-BK pop bypass graft Postoperative diagnosis: Status post explant of infected left REGIONAL SALES DIRECTOR-BK pop bypass graft Procedure(s) (LRB): DEBRIDEMENT SKIN [...] No Patient is insured through: Primary Insurance: [employer] MANAGED MEDICARE Payor: [employer] MANAGED MEDICARE / Plan: [employer] MANAGED MEDICARE PPO / Product Type: *No Product type* / Secondary Insurance: N/A Last Physical Therapy Recommendation: home with supervision (and support from family, prn) with None (10/03/24 1101) Last Occupational Therapy Recommendation: home (w/ family) with None (10/03/24 3832) Plan for discharge is: Pending Hospital Course [...] BIT to reengage please page BIT @ [phone] * Consult Note - Vangie Chandra [facility] - 10/04/2024 10:42 AM EST [facility] Pharmacokinetics Note Drug: Vancomycin Pharmacokinetic target: AUC24 (range) 400-600 mg/L.hr Current regimen: 1500 mg IV every 8 hours Geovanna Dixon is a(n) 49 years old male receiving Vancomycin 1500 mg IV every 8 hours for graft infection Recent measured serum creatinine values: 10/04/2024 00:08 0.56 mg/dL 10/03/2024 00:27 0.51 mg/dL 10/02/2024 00:41 0.49 mg/dL Assessment: Analysis of the most recent level(s) using eyesFinder gives the following patient-specific pharmacokinetic parameters: CL: [...] Plan of Care Review 10/03/2024 1905 by Cahtryn Hankins, RN Outcome: Ongoing (Interventions Implemented as [...] L 2nd toe amputationwho was transferred from [facility] given concern for infected left fem-BK popliteal PTFE bypass. He is now s/p an explant of an infected left femoral-below knee popliteal artery bypass graft (09/26), I/D groin abscess (09/27), L GSV harvest, vein patch angioplasty, L REGIONAL SALES DIRECTOR and BK pop w/ sartorius flap L fem, I/D, 09/29 L sartorius flap revision, vac change. 10/03/24 NPO at [facility] for OR wound exploration. Wound [...] 3.51) performed by Thony Garcia MD at [facility] MAIN OR PRO BYPASS GRAFT OTHR, FEM-TIBIAL Left 08/01/2024 @BYPASS GRAFT, FEM-ANT TIBIAL, -POST TIBIAL, -PERONEAL, -DP W\ SYNTHETIC CONDUIT (WRVU 23.66) performed by Lisette Maldonado MD at [facility] MAIN OR PRO CABG, ARTERY-VEIN, SINGLE 01/04/2012 @CABG, VENOUS & ARTERIAL GRAFT;SINGLE VEIN GRAFT performed by INNA TOVAR at [facility] MAIN OR PRO DEBRIDEMENT MUSCLE AND FASCIA 20 SQ CM/< Left 09/29/2024 DEBRIDEMENT SKIN, SUBCU, MUSCLE, LOWER EXTREMITY (WRVU 2.7) performed by Anabel Finney MD at [facility] MAIN OR PRO DEBRIDEMENT MUSCLE AND FASCIA 20 SQ CM/< Left 10/02/2024 DEBRIDEMENT SKIN, SUBCU, MUSCLE, LOWER EXTREMITY (WRVU 2.7) performed by Hermila Mccormick MDat [facility] MAIN OR PRO DEBRIDEMENT SUBCUTANEOUS TISSUE 20 SQCM/< Left 09/27/2024 DEBRIDEMENT SKIN AND SUBCU, LOWER EXTREMITY (WRVU 1.01) performed by Hayley Torres MD at [facility] MAIN OR PRO DRAIN LOWER LEG DEEP ABSC/HEMATOMA Left 09/26/2024 INCISION & DRAINAGE, LEG OR ANKLE, DEEP ABSCESS OR HEMATOMA (WRVU 5.23) performed by Hayley Torres MD at [facility] OR [facility] ENDOSCOPY W/VIDEO-ASST VEIN HARVEST, CABG 01/04/2012 ENDOSCOPIC HARVEST VEIN(S) FOR CABG performed by INNA TOVAR at [facility] MAIN OR PRO EXCISION, INFEC GRAFT, EXTREMITY Left 09/26/2024 EXCISION OF INFECTED GRAFT FROM LOWER EXTREMITY (WRVU 9.53) performed by Hayley Torres MD at [facility] OR PRO EXCISION, INFEC GRAFT, EXTREMITY Left 09/28/2024 EXCISION OF INFECTED GRAFT FROM LOWER EXTREMITY (WRVU 9.53) performed by Hayley Torres MD at [facility] MAIN OR PRO EXPLORATION NOT FOLLOWED BY SURG LOWER EXTREMITY ARTERY Left 09/29/2024 @EXPLORATION W\O SURGICAL REPAIR, FEMORAL ARTERY - JENNIFER (WRVU 7.5) performed by Anabel Finney MD at [facility] MAIN OR PRO FORM SKIN PEDICLE FLAP SCALP, ARM, LEG 09/28/2024 FLAP, PEDICLE,W OR W/O TRANSFER, LEGS (WRVU 10.12) performed by Hayley Torres MD at [facility] MAIN OR PRO I&D DEEP ABSCESS BURSA/HEMATOMA THIGH/KNEE REGION Left 09/26/2024 INCISION & DRAINAGE ABSCESS OR HEMATOMA, THIGH, KNEE SUPERFICIAL (WRVU 6.78) performed by Hayley Torres MD at [facility] MAIN OR PRO REVISION FEMORAL ANAST BPG GROIN OPEN W/NONAUTOG PATCH GRAFT Left 09/28/2024 REV. FEM. ANASTOMOSIS OF SYN. BYPASS GRAFT USING NONAUTOGENOUS PATCH ANGIOPLASTY-JENNIFER (WRVU 23.15) performed by Hayley Torres MD at [facility] MAIN OR PRO UNLISTED PROCEDURE VASCULAR SURGERY Left 09/28/2024 HARVEST SAPHENOUS VEIN (WRVU 13.24) performed by Hayley Torres MD at [facility] MAIN OR VS ARTERIOGRAM LOWER EXTREMITY VASCULAR SURGERY 07/20/2024 VS Arteriogram Lower Extremity Vascular Surgery 07/20/2024 Anabel Finney MD [facility] INTERVENTIONL RAD Social History: Patient lives w/ [...] Pt issued and educated on use of senior account representative for senior account representative lower items. Self-feeding: Independent Grooming: Set up [...] Discharge planning Total Minutes, Occupational Therapy: 35 ([id number]) OT Evaluation Code Rationale: Diagnosis & Pertinent Co-Morbidities affecting Plan of Care: see PMHx Occupational Profile & Client History: Brief Expanded Extensive x Assessment of Occupational Performance: 1-3 performance deficits 3-5 performance deficits x 5 + performance deficits Clinical Decision Making: Low Moderate High x Clinical decision making of low complexity using standardized patient assessment instrument and measurable assessment of functional outcome. Pager: [phone] Jorge Goetz OT 10/03/2024 Occupational Therapy Rehabilitation [...] Mccormick MD - 10/02/2024 2:06 PM EST [facility] Operative Note Patient Name: Geovanna Dixon Jr. : [id number] MR#: [id number] Case Date: 10/02/2024 Surgeon: Surgeons and Role: [...] 2nd toe amputation who was transferred from [facility] given concern for infected left fem-BK [...] the groin, we then attached a 15 [place] Jose drain to the Yung drain, and remove the Yung drain, replacing it with the 15 [place] Jose drain. In a similar way we [...] Therapy, Physical Therapy, Registered Nurse Agency Referrals: [facility]. [address] [place] [address] Transportation: family or friend will provide Barriers to discharge: Global: Denies needs/concerns at this time Plan: Patient is not medically ready related to: patient is going to the OR today for a washout andremains on blowout precautions. Plan going forward is: when able patient will need to work with PT/OT Anticipated Date of Discharge: 10/10/2024 Penny ROSAS, RN Phone: [phone] Pager: [phone] * Plan of Care - Heidi Mobley [...] * Consult Note - Katelyn Oconnor [facility] - 09/30/2024 7:43 AM EST [facility] Pharmacokinetics Note Drug: Vancomycin Pharmacokinetic target: AUC24 (range) 400-600 mg/L.hr Current regimen: 1500 mg IV every 8 hours Geovanna Dixon is a(n) 49 years old male receiving Vancomycin 1500 mg IV every 8 hours for bacteremia Recent measured serum creatinine values: 09/29/2024 23:52 0.48 mg/dL 09/28/2024 23:51 0.52 mg/dL 09/27/2024 23:58 0.48 mg/dL Assessment: Analysis of the most recent level(s) using eyesFinder gives the following patient-specific pharmacokinetic parameters: CL: [...] Finney MD - 09/29/2024 2:41 PM EST [facility] Operative Note Patient Name: Geovanna Dixon Jr. : [id number] MR#: [id number] Case Date: 09/29/2024 Surgeon: Surgeons and Role: [...] 2nd toe amputation who was transferred from [facility] given concern for infected left fem-BK [...] mobilized and explored. The area around the REGIONAL SALES DIRECTOR was irrigated copiously. The flap was then [...] Therapy, Physical Therapy, Registered Nurse Agency Referrals: [facility]. [address] [place] [address] Transportation: family or friend will provide Barriers [...] Discharge: 10/04/2024 Penny ROSAS RN CM Phone: [phone] Pager: [phone] * Consult Note - Rose Wright APRN [...] 2nd toe amputation who was transferred from [facility] given concern for infected left fem-BK [...] smoking 1 week ago. He presented to [facility] on 09/26 and went [...] Procedure Component Value - Date/Time Blood culture [[id number]] (Abnormal) Collected: 09/27/242132 Lab Status: Preliminary result Specimen: Blood, Venous Updated: 09/29/24 0721 Blood Culture Methicillin Resistant Staphylococcus aureus Gram Stain Aerobic Bottle: Gram positive cocci in clusters Blood culture [[id number]] (Abnormal) Collected: 09/26/24 1845 Lab Status: Preliminary result Specimen: Blood, Venous Updated: 09/29/24 0719 Blood Culture Methicillin Resistant Staphylococcus aureus Comment: isolated. Susceptibilities previously reported. Gram Stain Aerobic Bottle: Gram positive cocci in clusters Blood culture [[id number]] (Abnormal) (Susceptibility) Collected: 09/26/24 1422 Lab Status: Preliminary result Specimen: Blood, Venous Updated: 09/29/24 0717 Blood Culture Methicillin Resistant Staphylococcus aureus Comment: detected by PCR Isolate saved. If future testing is required, contact the Microbiology Language Instructor. Gram Stain Aerobic Bottle: Gram positive cocci in clusters Susceptibility Methicillin Resistant Staphylococcus aureus VITEK 2 METHOD Clindamycin Resistant Gentamicin Susceptible [1] Linezolid Susceptible Oxacillin Resistant Trimethoprim/Sulfa Susceptible Vancomycin Susceptible [1] Gentamicin is not appropriate for monotherapy for gram-positive infections. AFB culture [[id number]] Collected: 09/27/24 165 Lab Status: Preliminary result Specimen: Tissue from Thigh, Left Updated: 09/28/24 2226 Acid Fast Stain No acid fast bacilli seen Anaerobic Culture [[id number]] Collected: 09/27/24 165 Lab Status: Preliminary result Specimen: Tissue from Thigh, Left Updated: 09/28/24 1355 Anaerobic Culture No anaerobic organisms isolated to date Sonicated Tissue/Implant Culture [[id number]] Collected: 09/26/24 1716 Lab Status: Preliminary result Specimen: Vascular Graft from Leg, Left Updated: 09/28/24 1323 Sonicated Tissue/Implant Culture Culture in progress Tissue Culture, Aerobic Only [[id number]] (Abnormal) Collected: 09/27/24 1654 Lab Status: Preliminary result Specimen: Tissue from Thigh, Left Updated: 09/28/24 1049 Tissue Culture Rare Staphylococcus aureus Gram Stain Few Neutrophils seen No microorganisms seen Abscess/Wound Aspirate Culture, Aerobic Only [[id number]] (Abnormal) (Susceptibility) Collected: 09/26/24 1702 Lab Status: [...] to doxycycline. Abscess/Wound Aspirate Culture, Aerobic Only [[id number]] (Abnormal) (Susceptibility) Collected: 09/26/241649 Lab Status: Preliminary [...] is considered susceptible to doxycycline. Fungus culture [[id number]] Collected: 09/27/241653 Lab Status: Preliminary result Specimen: Tissue from Thigh, Left Updated: 09/28/24 0748 Fungus Culture No fungus isolated to date AFB culture [[id number]] Collected: 09/26/241701 Lab Status: Preliminary result Specimen: Abscess from Knee, Left Updated: 09/27/24 2335 Acid Fast Stain No acid fast bacilli seen MRSA PCR Screen [[id number]] (Abnormal) Collected: 09/27/24 0751 Lab Status: Final result Specimen: Swab from Nares Updated: 09/27/24 1156 MRSA PCR Detected Narrative: This test was performed using the Xpert MRSA NxG test kit and is run on the [employer] GeneXrSmart Dx System. This test is cleared by the U.S. Food and Drug Administration for clinical use and its performance characteristics have been verified by the [facility] at [facility]. Anaerobic Culture [[id number]] Collected: 09/26/241649 Lab Status: Preliminary result Specimen: Abscess from Groin, Left Updated: 09/27/24 1142 Anaerobic Culture No anaerobic organisms isolated to date Anaerobic Culture [[id number]] Collected: 09/26/24 170 Lab Status: Preliminary result Specimen: Abscess from Knee, Left Updated: 09/27/24 1142 Anaerobic Culture No anaerobic organisms isolated to date Fungus culture [[id number]] Collected: 09/26/24 1650 Lab Status: Preliminary result Specimen: Abscess from Groin, Left Updated: 09/27/24726 Fungus Culture No fungus isolated to date Fungus culture [[id number]] Collected: 09/26/24 1702 Lab Status: Preliminary result Specimen: Abscess from Knee, Left Updated: 09/27/24726 Fungus Culture No fungus isolated to date New Studies Results for orders placed or performed during the hospital encounter of 09/26/[address] Request For [address]nd Read CT Lower Extremity (Exam End: 09/26/2024 1:50 PM) Result Value WORKSTATION ID [id number] Impression 1. There is a left femoral [...] have questions please contact the health healthcare insurance sales agent that requested your imaging first. Electronically signed by: Lisette Bruno MD, [facility] ([phone]), at 09/26/2024 3:[address] Lower Extremity w Contrast Left (Exam End: 09/27/2024 9:16 AM) Result Value WORKSTATION ID [id number] Impression IMPRESSION: 1. Interval explant of LEFT [...] have questions please contact the health healthcare insurance sales agent that requested your imaging first. Electronically signed by: Ignacia Chi MD, [facility] ([phone]), at 09/27/2024 10:48 AM 09/28 ABIs Interpretation: [...] 2nd toe amputation who was transferred from [facility] given concern for infected left fem-BK [...] at proximal and distal anastomoses and a [place] drain placed from left groin to left [...] Torres MD - 09/28/2024 12:23 PM EST [facility] Operative Note Patient Name: Geovanna Dixon Jr. : [id number] MR#: [id number] Case Date: 09/28/2024 Surgeon: Surgeons and Role: [...] pericardial patch and PTFE willard over the REGIONAL SALES DIRECTOR was unincorporated. - Resection of prior femoral [...] Destination 1 : Left femoral proximal graft Machine Packer Leg, Left SURGICAL PATHOLOGY Hayley Torres MD 09/28/2024 1410 2 : Left distal BK pop graft Machine Packer Leg, Left SURGICAL PATHOLOGY Hayley Torres MD [...] Indications: 49M with history of a left REGIONAL SALES DIRECTOR-BK popliteal artery bypass with PTFE performed in [...] solution. Systemic heparin was administered. Next, the REGIONAL SALES DIRECTOR, SFA, and DFA were clamped. An 11-blade scalpel was used to excise the PTFE graft willard and the prior bovine pericardial patch, and all prior Prolene sutures were removed. Residual plaque in the arterial lumen was removed using a Reedy elevator. The harvested vein patch was cut [...] the midline with division of the first men's locker room attendant, such that the sartorius muscle was free [...] Torres MD - 09/28/2024 12:23 PM EST [facility] Operative Note Patient Name: Geovanna Dixon Jr. : [id number] MR#: [id number] Case Date: 09/28/2024 Surgeon: Surgeons and Role: [...] - Prior bovine pericardial patch over the REGIONAL SALES DIRECTOR was unincorporated. - Resection of prior femoral [...] Used? No * Consult [facility] - [facility]/28/[facility]24 9:23 AM EST [...] Analysis of the most recent level(s) using LocalOnRX gives the following patient-specific pharmacokinetic parameters: CL: [...] Note Patient Name: Geovanna Dixon Jr. : [id number] MR#: [id number] Case Date: 09/27/2024 Surgeon: Surgeons and Role: [...] Torres MD - 09/27/2024 4:27 PM EST [facility] Operative Note Patient Name: Geovanna Dixon Jr. : [id number] MR#: [id number] Case Date: 09/26/2024 Surgeon: Surgeons and Role: [...] ANAEROBIC Hayley Torres MD 09/26/2024 1702 Drains: [place] drain between left groin to left thigh [...] HPI/Surgical Indications: 49M with history of left REGIONAL SALES DIRECTOR-BK popliteal artery bypass graft with PTFE (July [...] Torres MD - 09/27/2024 4:27 PM EST [facility] Operative Note Patient Name: Geovanna Dixon Jr. : [id number] MR#: [id number] Case Date: 09/27/2024 Surgeon: Surgeons and Role: [...] 2nd toe amputation who was transferred from [facility] given concern for infected left fem-BK [...] smoking 1 week ago. He presented to [facility] on 09/26 and went [...] and to provide a review of senior living diabetes care. Glargine 25 units administered this [...] Cunningham APRN Endocrinology Diabetes Management Service Pager: [phone] Weekends please page [phone] 80 minute visit was spent in counseling [...] receiving care in [place] must abide by [place] law. The hierarchy [...] (i) The agent with financial power of admitted attorneys or a conservator appointed in accordance with [...] or living in a group home (including now)?: No In the past 12 months has the electric, gas, oil, or water [employer] threatened to shut off services in your [...] DME: none Home Address confirmed as: [address] [facility] [address] Social & Family Supports: All names listed [...] his home before. Health/Prescription Coverage: Primary Insurance: [employer] MANAGED MEDICARE Payor: [employer] MANAGED MEDICARE / Plan: [facility] MANA[facility] MEDIC[facility] PPO / Product Type: *No Product type* / Secondary Insurance: N/A ; Prescription Coverage: Yes Preferred Pharmacy: [id number] - [place], [place] - [address] [facility] [address] [facility] [address] [facility] - [place], [place] - [address] [address] [place], [place] - [address] [facility] [address] [facility] [address] [facility] [address] [place] Status: Patient is a : No Primary Care Provider confirmed: JUSTIN Roberson [phone] Patient/Caregiver Goals of Treatment: patient will need [...] where referrals are placed. Provided patient with [facility] Star Quality Rating handout. They have requested referrals to: [facility]. [address] [place] [address] Expected date of discharge: TBD Referral routed to the Slip [employer]aster for matching with agency/vendor and to provide [...] care as indicated. Penny ROSAS, RN Phone: [phone] Pager: [phone] * Consult Note - Stacey Thomas MD [...] extremity aching prompting him to go to [facility]. The groin pain dissipated. About a week later on 09/26 he developed left-sided groin pain prompting him to go to [facility] once again. Lab work notable for WBC count of 21, lactic acid 3.6. He underwent evaluation with a CT scan demonstrating an abscess from the left groin operative site the entire left of the graft down by the knee. He was transferred to [facility] for further care and he was [...] 3.51) performed by Thony Garcia MD at [facility] MAIN OR PRO BYPASS GRAFT OTHR, FEM-TIBIAL Left 08/01/2024 @BYPASS GRAFT, FEM-ANT TIBIAL, -POST TIBIAL, -PERONEAL, -DP W\ SYNTHETIC CONDUIT (WRVU 23.66) performed by Lisette Maldonado MD at [facility] MAIN OR PRO CABG, ARTERY-VEIN, SINGLE 01/04/2012 @CABG, VENOUS & ARTERIAL GRAFT;SINGLE VEIN GRAFT performed by INNA TOVAR at [facility] OR PRO ENDOSCOPY W/VIDEO-ASST VEIN HARVEST, CABG 01/04/2012 ENDOSCOPIC HARVEST VEIN(S) FOR CABG performed by INNA TOVAR at [facility] MAIN OR VS ARTERIOGRAM LOWER EXTREMITY VASCULAR SURGERY 07/20/2024 VS Arteriogram Lower Extremity Vascular Surgery 07/20/2024 Anabel Finney MD [facility] INTERVENTIONL RAD Medications: potassium chloride ER (Klor-Con [...] Q8H heparin (porcine) 5,000 Units Subcutaneous Q8H OJSE lidocaine 1 patch Transdermal Q24H Continuous Infusions: lactated Ringers 100 mL/hr (09/27/24 8704) sodium chloride 0.9% PRN Meds:.potassium chloride ER [...] admitted to SICU as a transfer from [facility] for suspected graft infection/sepsis. A/Ox4, able [...] Torres MD - 09/26/2024 4:50 PM EST [facility] Operative Note Patient Name: Geovanna Dixon Jr. 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 Plan for LEFT lower extremity bypass graft explant, possible arterial reconstruction, other procedures as indicated. Procedure Description: Geovanna Dxion Jr. was brought to the operating room [...] 2nd toe amputation who was transferred from [facility] given concern for infected left fem-BK [...] 3.51) performed by Thony Garcia MD at [facility] MAIN OR PRO BYPASS GRAFT OTHR, FEM-TIBIAL Left 08/01/2024 @BYPASS GRAFT, FEM-ANT TIBIAL, -POST TIBIAL, -PERONEAL, -DP W\ SYNTHETIC CONDUIT (WRVU 23.66) performed by Lisette Maldonado MD at [facility] MAIN OR PRO CABG, ARTERY-VEIN, SINGLE 01/04/2012 @CABG, VENOUS & ARTERIAL GRAFT;SINGLE VEIN GRAFT performed by INNA TOVAR at [facility] MAIN OR PRO ENDOSCOPY W/VIDEO-ASST VEIN HARVEST, CABG 01/04/2012 ENDOSCOPIC HARVEST VEIN(S) FOR CABG performed by INNA TOVAR at [facility] MAIN OR VS ARTERIOGRAM LOWER EXTREMITY VASCULAR SURGERY 07/20/2024 VS Arteriogram Lower Extremity Vascular Surgery 07/20/2024 Anabel Finney MD [facility] INTERVENTIONL RAD Social Hx: Social History Socioeconomic [...] 3 times daily. Use as instructed Indications: [id number] each 1 FreeStyle Lancets 28 gauge Misc [...] 2nd toe amputation who was transferred from [facility] given concern for infected left fem-BK [...] PM EST Office [place] [address] Isabela Hayward APRN [facility] [place] [address] 11/10/2024 10:00 AM EST Office [place] [address] Dai Whitman, SPORTS PHYSICAL THERAPIST 11/21/2024 2:15 PM EST Office [place] [address] Dayanara Grover MD [facility] DR [place] [address] Pending Results Name Type Priority Associated Diagnoses [...] EST I&D Deep Abscess Bursa/Hematoma Thigh/Knee Region (10061) 09/26/2024 3:52 PM EST left infected femoral to below knee bypass graft Drain Lower Leg Deep Absc/Hematoma (54715) 09/26/2024 3:52 PM EST left infected femoral to below knee bypass graft Excision, Infec Graft, Extremity (09011) 09/26/2024 3:52 PM EST left infected femoral [...] Non-fasting (10/16/2024) Glucose Lvl - External 124(H) Blood Urea Nitrogen - External 17 Creatinine - External 0.9 EGFR - External 104.05 [facility] Anion Gap - External 11.6(H) Sodium - External 141 Potassium - External 4.3 Chloride - External 103 CO2 - External 26.4 [facility] Calcium - External 9.0 Protein, Total - External 6.9 Albumin - External 3.0(L) Total Bilirubin - External 0.20 Alk Phos - External 124(H) AST (SGOT) - External 12 ALT (SGPT) - External 22 Blood VENOUS BLOOD SPECIMEN / Unknown 10/16/2024 Amaya Hernandez MD CHEMISTRY ORDERABLES Performing Organization Address City/[facility]/ZIP Co de Phone Number [address] [phone] * CK (10/16/2024) CK, Total - External 39 Blood VENOUS BLOOD SPECIMEN / Unknown 10/16/2024 Amaya Hernandez MD CHEMISTRY ORDERABLES Performing Organization Address City/[facility]/ZIP Co de Phone Number [address] [place] [phone] * (ABNORMAL) CBC (with Diff) (10/16/2024) WBC - External 10.99(H) [facility] RBC - External 3.71(L) [facility] Hemoglobin - External 10.8(L) Hematocrit - External 33.8(L) MCV - External 91 [facility] MCH - External 29.1 [facility] MCHC - External 32.0 [facility] RDWCV - External 14.2(H) Platelets - External 512(H) MPV - External 9.8 [facility] NRBC % - External 0.0 NRBC Abs - External 0.0 Neutrophils % - External 64.2 Lymphocytes % - External 25.8 Monocytes % - External 6.8 Eosinophils % - External 2.0 Basophils % - External 0.9 Immature Gran % - External 0.3 Neutr ABS (ANC) - External 7.06(H) Lymphocyte ABS - External 2.84 Monocyte ABS - External 0.75 Eosinophil ABS - External 0.22 Basophil ABS - External 0.10 Blood VENOUS BLOOD SPECIMEN / Unknown 10/16/2024 Amaya Hernandez MD HEMATOLOGY ORDERABLE S [address] [facility] [address] [place] [phone] * POC, GLUCOSE (10/10/2024 4:27 PM EST) Glucometer, POC 172 65 - 199 mg/dL 10/10/2024 4:27 PM EST [facility] Comment:Supplemental ranges: <140 mg/dL before meals <180 mg/dL all other times of the day. Blood CAPILLARY BLOOD / Unknown 10/10/2024 4:27 PM EST 10/10/2024 4:27 PM EST Hayley Torres MD POINT OF CARE TEST O GILDA Performing Organization Address City/[facility] Co de Phone Number [facility] [place] [address] * POC, GLUCOSE (10/10/2024 11:10 AM EST) Glucometer, POC 174 65 - 199 mg/dL 10/10/2024 11:11 AM EST [facility] Comment:Supplemental ranges: <140 mg/dL before meals <180 mg/dL all other times of the day. Blood CAPILLARY BLOOD / Unknown 10/10/2024 11:10 AM EST 10/10/2024 11:11 AM EST Hayley Torres MD POINT OF CARE TEST O GILDA Performing Organization Address [facility] Co de Phone Number [facility] [place] [address] * POC, GLUCOSE (10/10/2024 7:46 AM EST) Glucometer, POC 141 65 - 199 mg/dL 10/10/2024 7:46 AM EST [facility] Comment:Supplemental ranges: <140 mg/dL before meals <180 mg/dL all other times of the day. Blood CAPILLARY BLOOD / Unknown 10/10/2024 7:46 AM EST 10/10/2024 7:46 AM EST Hayley Torres MD POINT OF CARE TEST O GILDA Performing Organization Address City/[facility] Co de Phone Number [facility] [place] [address] * POC, GLUCOSE (10/10/2024 6:11 AM EST) Glucometer, POC 127 65 - 199 mg/dL 10/10/2024 6:11 AM EST [facility] Comment:Supplemental ranges: <140 mg/dL before meals <180 mg/dL all other times of the day. Blood CAPILLARY BLOOD / Unknown 10/10/2024 6:11 AM EST 10/10/2024 6:11 AM EST Hayley Torres MD POINT OF CARE TEST O RDERABLES Performing Organization Address City/[facility]/ZIP Co de Phone Number [facility] [place] [address] * CK (10/10/2024 12:33 AM EST) Pathologist [facility] Creatine Kinase 32 0 - 200 unit/L 10/10/2024 8:54 AM [facility] Blood VENOUS BLOOD SPECIMEN / Unknown Venipuncture / Unknown 10/10/2024 12:33 AM EST 10/10/2024 12:43 AM EST María Carranza APRN CHEMISTRY ORDER RANDELL Performing Organization Address City/[facility]/ZIP Co de Phone Number [facility] [place] [address] * (ABNORMAL) CBC (with Diff) (10/10/2024 12:33 AM EST) [facility] White Blood Cell 11.57(H) 4.00 - 9.50 x10(3)/mc L 10/10/2024 12:48 AM [facility] Red Blood Cell 3.75(L) 4.58 - 5.54 x10(6)/mc L 10/10/2024 12:48 AM [facility] Hemoglobin 11.1(L) 13.7 - 16.5 g/dL 10/10/2024 12:48 AM [facility] Hematocrit 33.5(L) 40.5 - 48.5 % 10/10/2024 12:48 AM [facility] Mean Cell Volume 89.3 82.9 - 93.1 fL 10/10/2024 12:48 AM [facility] Mean Cell Hemoglobin 29.6 27.5 - 32.1 pg 10/10/2024 12:48 AM [facility] Mean Cell Hemoglobin Concentration 33.1 32.0 - 35.7 g/dL 10/10/2024 12:48 AM [facility] Platelet 823(H) 145 - 357 x10(3)/mc L 10/10/2024 12:48 AM [facility] Mean Platelet Volume 9.2 7.6 - 12.9 fL 10/10/2024 12:48 AM [facility] RDW Standard Deviation 46.3(H) 36.0 - 45.0 fL 10/10/2024 12:48 AM [facility] RDW coefficient of variation 14.6(H) 11.4 - 13.8 % 10/10/2024 12:48 AM [facility] NRBC% auto 0.0 % 10/10/2024 12:48 AM [facility] NRBC Absolute <0.01 <0.01 x10(3)/mc L 10/10/2024 12:48 AM [facility] Neutrophil % 61.3 % 10/10/2024 12:48 AM [facility] Neutrophil Absolute (ANC) - Automated 7.08(H) 1.70 - 6.10 x10(3)/mc L 10/10/2024 12:48 AM [facility] Lymph % 28.7 % 10/10/2024 12:48 AM [facility] Lymph Absolute 3.32(H) 0.90 - 3.20 x10(3)/mc L 10/10/2024 12:48 AM [facility] Monocyte % 7.0 % 10/10/2024 12:48 AM [facility] Monocyte Absolute 0.81 0.30 - 0.90 x10(3)/mc L 10/10/2024 12:48 AM [facility] Eos % 1.6 % 10/10/2024 12:48 AM [facility] Eos Absolute 0.19 0.00 - 0.40 x10(3)/mc L 10/10/2024 12:48 AM [facility] Basophil % 1.0 % 10/10/2024 12:48 AM [facility] Baso Absolute 0.12(H) 0.00 - 0.10 x10(3)/mc L 10/10/2024 12:48 AM [facility] Immature Gran % 0.4 % 12:48 AM [facility] Immature Gran Absolute 0.05(H) 0.00 - 0.04 x10(3)/mc L 10/10/2024 12:48 AM [facility] Blood VENOUS BLOOD SPECIMEN / Unknown Venipuncture / Unknown 10/10/2024 12:33 AM EST 10/10/2024 12:43 AM EST Hayley Torres MD HEMATOLOGY ORDERABLE S [facility] [place] [phone] * (ABNORMAL) Basic Metabolic Panel (10/10/2024 12:33 AM EST) Glucose 125 65 - 199 mg/dL 10/10/2024 1:12 AM [facility] Comment:Glucose Concentratio n >=200 mg/dL plus symptoms is consistent with Diabetes Mellitus. Blood Urea Nitrogen 19 10 - 20 mg/dL 10/10/2024 1:12 AM [facility] Creatinine 0.57(L) 0.80 - 1.50 mg/dL 10/10/2024 1:12 AM [facility] Sodium 138 135 - 145 mMol/L 10/10/2024 1:12 AM [facility] Potassium 4.1 3.5 - 5.0 mMol/L 10/10/2024 1:12 AM [facility] Chloride 103 98 - 107 mMol/L 10/10/2024 1:12 AM EST [facility] Carbon Dioxide 25 22 - 31 mMol/L 10/10/2024 1:12 AM [facility] Anion Gap 10 5 - 15 mMol/L 10/10/2024 1:12 AM [facility] Calcium 9.4 8.5 - 10.5 mg/dL 10/10/2024 1:12 AM EST [facility] Est Glomerular Filtration Rate - Male 119 mL/min/1. 73 m?? 10/10/2024 1:12 AM EST [facility] Comment: This patient's estimated [...] AM EST Hayley Torres MD CHEMISTRY ORDERABLES [facility] [place] [address] * Phosphorus (10/10/2024 12:33 AM EST) Phosphorus 3.8 2.5 - 4.5 mg/dL 10/10/2024 1:12 AM EST [facility] Blood VENOUS BLOOD SPECIMEN / Unknown Venipuncture / Unknown 10/10/2024 12:33 AM EST 10/10/2024 12:43 AM EST Hayley Torres MD CHEMISTRY ORDERABLES [facility] [place] [address] * Magnesium (10/10/2024 12:33 AM EST) Magnesium 0.81 0.69 - 1.07 mMol/L 10/10/2024 1:12 AM EST [facility] Blood VENOUS BLOOD SPECIMEN / Unknown Venipuncture / Unknown 10/10/2024 12:33 AM EST 10/10/2024 12:43 AM EST Hayley Torres MD CHEMISTRY ORDERABLES Performing Organization Address City/[facility]/ZIP Co de Phone Number [facility] [place] [address] * POC, GLUCOSE (10/10/2024 12:31 AM EST) Glucometer, POC 119 65 - 199 mg/dL 10/10/2024 12:32 AM EST [facility] Comment:Supplemental ranges: <140 mg/dL before meals <180 mg/dL all other times of the day. Blood CAPILLARY BLOOD / Unknown 10/10/2024 12:31 AM EST 10/10/2024 12:32 AM EST Hayley Torres MD POINT OF CARE TEST O RDERABLES Performing Organization Address [facility]/ZIP Co de Phone Number [facility] [place] [address] * POC, GLUCOSE (10/09/2024 8:16 PM EST) Glucometer, POC 104 65 - 199 mg/dL 10/09/2024 8:16 PM EST [facility] Comment:Supplemental ranges: <140 mg/dL before meals <180 mg/dL all other times of the day. Blood CAPILLARY BLOOD / Unknown 10/09/2024 8:16 PM EST 10/09/2024 8:16 PM EST Hayley Torres MD POINT OF CARE TEST O RDERABLES [facility] [place] [address] * POC, GLUCOSE (10/09/2024 3:57 PM EST) Glucometer, POC 120 65 - 199 mg/dL 10/09/2024 3:57 PM EST [facility] Comment:Supplemental ranges: <140 mg/dL before meals <180 mg/dL all other times of the day. Blood CAPILLARY BLOOD / Unknown 10/09/2024 3:57 PM EST 10/09/2024 3:57 PM EST Hayley Torres MD POINT OF CARE TEST O RDERABLES [facility] [place] [address] * Place PICC Line: Contact Vascular Access Page [phone] Extremity to exclude: No restrictions; Is PICC procedure required PRIOR to patients discharge? Yes (10/09/2024 1:55 PM EST) Narrative Jorge Torres, DAVID - 10/09/2024 1:55 PM EST Jorge Torres, RN ? 10/09/2024 ??1:57 PM PICC/Midline Insertion [...] to the planned procedure. Hand Hygiene: The corporate travel coordinator did perform hand hygiene prior to line insertion. Catheter type: PICC Lot number: [id number] Procedure Technique: Skin was prepped with chlorhexidine. [...] (IV Team) (10/09/2024 1:55 PM EST) Pathologist rumr: turn off the lights WORKSTATION ID [id number] RAD Anatomical Region Laterality Modality N/A Radio [...] have questions please contact the health healthcare insurance sales agent that requested your imaging first. ? Electronically signed by: Terell Salvador MD, [facility] ([phone]), at 10/09/2024 3:30 PM Narrative 10/09/2024 3:30 [...] who have questions please contactthe health healthcare insurance sales agent that requested your imaging first. Electronically signed by: Terell Salvador MD, [facility]([phone]), at 10/09/2024 3:30 PM María Carranza APRN IMG [facility]AN[facility]KA [facility]ERT * POC, GLUCOSE (10/09/2024 11:40 AM EST) [facility] Glucometer, POC 180 65 - 199 mg/dL 10/09/2024 11:40 AM EST [facility] Comment:Supplemental ranges: <140 mg/dL before meals <180 mg/dL all other times of the day. Blood CAPILLARY BLOOD / Unknown 10/09/2024 11:40 AM EST 10/09/2024 11:41 AM EST Hayley Torres MD POINT OF CARE TEST O GILDA Performing Organization Address City/[facility]/ZIP Co de Phone Number [facility] [place] [address] * (ABNORMAL) POC, GLUCOSE (10/09/2024 7:35 AM EST) Glucometer, POC 215(H) 65 - 199 mg/dL 10/09/2024 7:36 AM EST [facility] Comment:Supplemental ranges: <140 mg/dL before meals <180 mg/dL all other times of the day. Blood CAPILLARY BLOOD / Unknown 10/09/2024 7:35 AM EST 10/09/2024 7:36 AM EST Hayley Torres MD POINT OF CARE TEST O GILDA Performing Organization Address City/[facility]/ZIP Co de Phone Number [facility] [place] [address] * POC, GLUCOSE (10/09/2024 4:26 AM EST) Glucometer, POC 175 65 - 199 mg/dL 10/09/2024 4:26 AM EST [facility] Comment:Supplemental ranges: <140 mg/dL before meals <180 mg/dL all other times of the day. Blood CAPILLARY BLOOD / Unknown 10/09/2024 4:26 AM EST 10/09/2024 4:26 AM EST Hayley Torres MD POINT OF CARE TEST O GILDA [facility] [place] [address] * (ABNORMAL) CBC (with Diff) (10/09/2024 12:45 AM EST) White Blood Cell 11.27(H) 4.00 - 9.50 x10(3)/mc L 10/09/2024 1:31 AM [facility] Red Blood Cell 3.74(L) 4.58 - 5.54 x10(6)/mc L 10/09/2024 1:31 AM [facility] Hemoglobin 10.8(L) 13.7 - 16.5 g/dL 10/09/2024 1:31 AM [facility] Hematocrit 33.5(L) 40.5 - 48.5 % 10/09/2024 1:31 AM [facility] Mean Cell Volume 89.6 82.9 - 93.1 fL 10/09/2024 1:31 AM [facility] Mean Cell Hemoglobin 28.9 27.5 - 32.1 pg 10/09/2024 1:31 AM [facility] Mean Cell Hemoglobin Concentration 32.2 32.0 - 35.7 g/dL 10/09/2024 1:31 AM [facility] Platelet 886(H) 145 - 357 x10(3)/mc L 10/09/2024 1:31 AM [facility] Mean Platelet Volume 9.5 7.6 - 12.9 fL 10/09/2024 1:31 AM [facility] RDW Standard Deviation 47.7(H) 36.0 - 45.0 fL 10/09/2024 1:31 AM [facility] RDW coefficient of variation 14.6(H) 11.4 - 13.8 % 10/09/2024 1:31 AM [facility] NRBC% auto 0.0 % 10/09/2024 1:31 AM [facility] NRBC Absolute <0.01 <0.01 x10(3)/mc L 10/09/2024 1:31 AM [facility] Neutrophil % 61.7 % 10/09/2024 1:31 AM [facility] Neutrophil Absolute (ANC) - Automated 6.95(H) 1.70 - 6.10 x10(3)/mc L 10/09/2024 1:31 AM EST [facility] Lymph % 28.3 % 10/09/2024 1:31 AM EST [facility] Lymph Absolute 3.19 0.90 - 3.20 x10(3)/mc L 10/09/2024 1:31 AM EST [facility] Monocyte % 6.8 % 10/09/2024 1:31 AM EST [facility] Monocyte Absolute 0.77 0.30 - 0.90 x10(3)/mc L 10/09/2024 1:31 AM EST [facility] Eos % 1.5 % 10/09/2024 1:31 AM [facility] Eos Absolute 0.17 0.00 - 0.40 x10(3)/mc L 10/09/2024 1:31 AM EST [facility] Basophil % 1.1 % 10/09/2024 1:31 AM EST [facility] Baso Absolute 0.12(H) 0.00 - 0.10 x10(3)/mc L 10/09/2024 1:31 AM EST [facility] Immature Gran % 0.6 % 1:31 AM [facility] Immature Gran Absolute 0.07(H) 0.00 - 0.04 x10(3)/mc L 10/09/2024 1:31 AM EST [facility] Blood VENOUS BLOOD SPECIMEN / Unknown Venipuncture / Unknown 10/09/2024 12:45 AM EST 10/09/2024 1:27 AM EST Hayley Torres MD HEMATOLOGY ORDERABLE S [facility] [place] [address] * (ABNORMAL) Basic Metabolic Panel (10/09/2024 12:45 AM EST) Glucose 135 65 - 199 mg/dL 10/09/2024 1:54 AM [facility] Comment:Glucose Concentratio n >=200 mg/dL plus symptoms is consistent with Diabetes Mellitus. Blood Urea Nitrogen 22(H) 10 - 20 mg/dL 10/09/2024 1:54 AM [facility] Creatinine 0.53(L) 0.80 - 1.50 mg/dL 10/09/2024 1:54 AM [facility] Sodium 138 135 - 145 mMol/L 10/09/2024 1:54 AM [facility] Potassium 4.1 3.5 - 5.0 mMol/L 10/09/2024 1:54 AM [facility] Chloride 102 98 - 107 mMol/L 10/09/2024 1:54 AM [facility] Carbon Dioxide 24 22 - 31 mMol/L 10/09/2024 1:54 AM [facility] Anion Gap 12 5 - 15 mMol/L 10/09/2024 1:54 AM [facility] Calcium 9.4 8.5 - 10.5 mg/dL 10/09/2024 1:54 AM [facility] Est Glomerular Filtration Rate - Male 122 mL/min/1. 73 m?? 10/09/2024 1:54 AM [facility] Comment: This patient's estimated GFR [...] AM EST Hayley Torres MD CHEMISTRY ORDERABLES [facility] [place] [address] * Phosphorus (10/09/2024 12:45 AM EST) Phosphorus 3.9 2.5 - 4.5 mg/dL 10/09/2024 1:54 AM EST [facility] Blood VENOUS BLOOD SPECIMEN / Unknown Venipuncture / Unknown 10/09/2024 12:45 AM EST 10/09/2024 1:27 AM EST Hayley Torres MD CHEMISTRY ORDERABLES Performing Organization Address [facility] Co de Phone Number [facility] [place] [address] * Magnesium (10/09/2024 12:45 AM EST) Magnesium 0.80 0.69 - 1.07 mMol/L 10/09/2024 1:54 AM EST [facility] Blood VENOUS BLOOD SPECIMEN / Unknown Venipuncture / Unknown 10/09/2024 12:45 AM EST 10/09/2024 1:27 AM EST Hayley Torres MD CHEMISTRY ORDERABLES Performing Organization Address City/[facility]/ZIP Co de Phone Number [facility] [place] [address] * POC, GLUCOSE (10/09/2024 12:11 AM EST) Glucometer, POC 157 65 - 199 mg/dL 10/09/2024 12:11 AM EST [facility] Comment:Supplemental ranges: <140 mg/dL before meals <180 mg/dL all other times of the day. Blood CAPILLARY BLOOD / Unknown 10/09/2024 12:11 AM EST 10/09/2024 12:11 AM EST Hayley Torres MD POINT OF CARE TEST O RDERABLES Performing Organization Address [facility] Co de Phone Number [facility] [place] [address] * POC, GLUCOSE (10/08/2024 7:25 PM EST) Glucometer, POC 157 65 - 199 mg/dL 10/08/2024 7:25 PM EST [facility] Comment:Supplemental ranges: <140 mg/dL before meals <180 mg/dL all other times of the day. Blood CAPILLARY BLOOD / Unknown 10/08/2024 7:25 PM EST 10/08/2024 7:25 PM EST Hayley Torres MD POINT OF CARE TEST O RDERAHERNANDEZ Performing Organization Address [facility] de Phone Number [facility] [place] [address] * POC, GLUCOSE (10/08/2024 5:54 PM EST) Glucometer, POC 198 65 - 199 mg/dL 10/08/2024 5:54 PM EST [facility] Comment:Supplemental ranges: <140 mg/dL before meals <180 mg/dL all other times of the day. Blood CAPILLARY BLOOD / Unknown 10/08/2024 5:54 PM EST 10/08/2024 5:54 PM EST Hayley Torres MD POINT OF CARE TEST O RDERAHERNANDEZ Performing Organization Address [facility] Co de Phone Number [facility] [place] [address] * (ABNORMAL) POC, GLUCOSE (10/08/2024 4:08 PM EST) Glucometer, POC 281(H) 65 - 199 mg/dL 10/08/2024 4:08 PM EST [facility] Comment:Supplemental ranges: <140 mg/dL before meals <180 mg/dL all other times of the day. Blood CAPILLARY BLOOD / Unknown 10/08/2024 4:08 PM EST 10/08/2024 4:09 PM EST Hayley Torres MD POINT OF CARE TEST O GILDA Performing Organization Address [facility] de Phone Number [facility] [place] [address] * POC, GLUCOSE (10/08/2024 12:44 PM EST) Glucometer, POC 146 65 - 199 mg/dL 10/08/2024 12:44 PM EST [facility] Comment:Supplemental ranges: <140 mg/dL before meals <180 mg/dL all other times of the day. Blood CAPILLARY BLOOD / Unknown 10/08/2024 12:44 PM EST 10/08/2024 12:44 PM EST Hayley Torres MD POINT OF CARE TEST O GILDA Performing Organization Address [facility] de Phone Number [facility] [place] [address] * POC, GLUCOSE (10/08/2024 8:30 AM EST) Glucometer, POC 172 65 - 199 mg/dL 10/08/2024 8:30 AM EST [facility] Comment:Supplemental ranges: <140 mg/dL before meals <180 mg/dL all other times of the day. Blood CAPILLARY BLOOD / Unknown 10/08/2024 8:30 AM EST 10/08/2024 8:30 AM EST Hayley Torres MD POINT OF CARE TEST O GILDA Performing Organization Address [facility] de Phone Number [facility] [place] [address] * Vancomycin Level, Random (10/08/2024 5:59 AM EST) Vancomycin, Random 6.8 mg/L 2023 7:58 AM EST [facility] Comment:This level is for de termination of the patient's vancomycin owgj-bhlwu-brx-curve (AUC) value. Contact the inpatient pharmacy for interpretation. Blood VENOUS BLOOD SPECIMEN / Unknown Venipuncture / Unknown 10/08/2024 5:59 AM EST 10/08/2024 7:29 AM EST Hayley Torres MD CHEMISTRY ORDERABLES Performing Organization Address [facility]/ZIP Co de Phone Number [facility] [place] [address] * POC, GLUCOSE (10/08/2024 4:02 AM EST) Pathologist [facility] Glucometer, POC 163 65 - 199 mg/dL 10/08/2024 4:02 AM EST [facility] Comment:Supplemental ranges: <140 mg/dL before meals <180 mg/dL all other times of the day. Blood CAPILLARY BLOOD / Unknown 10/08/2024 4:02 AM EST 10/08/2024 4:02 AM EST Hayley Torres MD POINT OF CARE TEST O RDERABLES Performing Organization Address City/[facility] Co de Phone Number [facility] [place] [address] * (ABNORMAL) CBC (with Diff) (10/08/2024 12:08 AM EST) [facility] Signature White Blood Cell 10.35(H) 4.00 - 9.50 x10(3)/mc L 10/08/2024 12:29 AM [facility] Red Blood Cell 3.53(L) 4.58 - 5.54 x10(6)/mc L 10/08/2024 12:29 AM [facility] Hemoglobin 10.2(L) 13.7 - 16.5 g/dL 10/08/2024 12:29 AM [facility] Hematocrit 31.7(L) 40.5 - 48.5 % 10/08/2024 12:29 AM [facility] Mean Cell Volume 89.8 82.9 - 93.1 fL 10/08/2024 12:29 AM [facility] Mean Cell Hemoglobin 28.9 27.5 - 32.1 pg 10/08/2024 12:29 AM [facility] Mean Cell Hemoglobin Concentration 32.2 32.0 - 35.7 g/dL 10/08/2024 12:29 AM [facility] Platelet 778(H) 145 - 357 x10(3)/mc L 10/08/2024 12:29 AM [facility] Mean Platelet Volume 9.1 7.6 - 12.9 fL 10/08/2024 12:29 AM [facility] RDW Standard Deviation 47.5(H) 36.0 - 45.0 fL 10/08/2024 12:29 AM [facility] RDW coefficient of variation 14.6(H) 11.4 - 13.8 % 10/08/2024 12:29 AM [facility] NRBC% auto 0.0 % 10/08/2024 12:29 AM [facility] NRBC Absolute <0.01 <0.01 x10(3)/mc L 10/08/2024 12:29 AM [facility] Neutrophil % 60.9 % 10/08/2024 12:29 AM [facility] Neutrophil Absolute (ANC) - Automated 6.30(H) 1.70 - 6.10 x10(3)/mc L 10/08/2024 12:29 AM [facility] Lymph % 28.4 % 10/08/2024 12:29 AM [facility] Lymph Absolute 2.94 0.90 - 3.20 x10(3)/mc L 10/08/2024 12:29 AM [facility] Monocyte % 7.2 % 10/08/2024 12:29 AM [facility] Monocyte Absolute 0.75 0.30 - 0.90 x10(3)/mc L 10/08/2024 12:29 AM [facility] Eos % 1.7 % 10/08/2024 12:29 AM EST [facility] Eos Absolute 0.18 0.00 - 0.40 x10(3)/mc L 10/08/2024 12:29 AM EST [facility] Basophil % 1.0 % 10/08/2024 12:29 AM EST [facility] Baso Absolute 0.10 0.00 - 0.10 x10(3)/mc L 10/08/2024 12:29 AM [facility] Immature Gran % 0.8 % 12:29 AM [facility] Immature Gran Absolute 0.08(H) 0.00 - 0.04 x10(3)/mc L 10/08/2024 12:29 AM [facility] Blood VENOUS BLOOD SPECIMEN / Unknown Venipuncture / Unknown 10/08/2024 12:08 AM EST 10/08/2024 12:23 AM EST Hayley Torres MD HEMATOLOGY ORDERABLE S [facility] [place] [address] * (ABNORMAL) Basic Metabolic Panel (10/08/2024 12:08 AM EST) Glucose 151 65 - 199 mg/dL 10/08/2024 12:50 AM [facility] Comment:Glucose Concentratio n >=200 mg/dL plus symptoms is consistent with Diabetes Mellitus. Blood Urea Nitrogen 19 10 - 20 mg/dL 10/08/2024 12:50 AM [facility] Creatinine 0.60(L) 0.80 - 1.50 mg/dL 10/08/2024 12:50 AM [facility] Sodium 135 135 - 145 mMol/L 10/08/2024 12:50 AM [facility] Potassium 3.8 3.5 - 5.0 mMol/L 10/08/2024 12:50 AM [facility] Chloride 101 98 - 107 mMol/L 10/08/2024 12:50 AM EST [facility] Carbon Dioxide 25 22 - 31 mMol/L 10/08/2024 12:50 AM [facility] Anion Gap 9 5 - 15 mMol/L 10/08/2024 12:50 AM [facility] Calcium 9.2 8.5 - 10.5 mg/dL 10/08/2024 12:50 AM EST [facility] Est Glomerular Filtration Rate - Male 118 mL/min/1. 73 m?? 10/08/2024 12:50 AM EST [facility] Comment: This patient's estimated [...] AM EST Hayley Torres MD CHEMISTRY ORDERABLES [facility] [place] [address] * Phosphorus (10/08/2024 12:08 AM EST) Phosphorus 3.4 2.5 - 4.5 mg/dL 10/08/2024 12:50 AM EST [facility] Blood VENOUS BLOOD SPECIMEN / Unknown Venipuncture / Unknown 10/08/2024 12:08 AM EST 10/08/2024 12:23 AM EST Hayley Torres MD CHEMISTRY ORDERABLES [facility] [place] [address] * Magnesium (10/08/2024 12:08 AM EST) Magnesium 0.85 0.69 - 1.07 mMol/L 10/08/2024 12:50 AM EST [facility] Blood VENOUS BLOOD SPECIMEN / Unknown Venipuncture / Unknown 10/08/2024 12:08 AM EST 10/08/2024 12:23 AM EST Hayley Torres MD CHEMISTRY ORDERABLES [facility] [place] [address] * CK (10/08/2024 12:08 AM EST) Creatine Kinase 24 0 - 200 unit/L 10/08/2024 12:50 AM EST [facility] Blood VENOUS BLOOD SPECIMEN / Unknown Venipuncture / Unknown 10/08/2024 12:08 AM EST 10/08/2024 12:23 AM EST Hayley Torres MD CHEMISTRY ORDERABLES Performing Organization Address City/[facility]/ZIP Co de Phone Number [facility] [place] [address] * POC, GLUCOSE (10/08/2024 12:05 AM EST) Glucometer, POC 100 65 - 199 mg/dL 10/08/2024 12:05 AM EST [facility] Comment:Supplemental ranges: <140 mg/dL before meals <180 mg/dL all other times of the day. Blood CAPILLARY BLOOD / Unknown 10/08/2024 12:05 AM EST 10/08/2024 12:05 AM EST Hayley Torres MD POINT OF CARE TEST O RDERABLES [facility] [place] [address] * POC, GLUCOSE (10/07/2024 8:29 PM EST) Glucometer, POC 107 65 - 199 mg/dL 10/07/2024 8:30 PM EST [facility] Comment:Supplemental ranges: <140 mg/dL before meals <180 mg/dL all other times of the day. Blood CAPILLARY BLOOD / Unknown 10/07/2024 8:29 PM EST 10/07/2024 8:30 PM EST Hayley Torres MD POINT OF CARE TEST O RDERAHERNANDEZ [facility] [place] [address] * POC, GLUCOSE (10/07/2024 4:33 PM EST) Glucometer, POC 129 65 - 199 mg/dL 10/07/2024 4:33 PM EST [facility] Comment:Supplemental ranges: <140 mg/dL before meals <180 mg/dL all other times of the day. Blood CAPILLARY BLOOD / Unknown 10/07/2024 4:33 PM EST 10/07/2024 4:34 PM EST Hayley Torres MD POINT OF CARE TEST O DIMITRIERAHERNANDEZ [facility] [place] [address] * (ABNORMAL) POC, GLUCOSE (10/07/2024 10:58 AM EST) Glucometer, POC 221(H) 65 - 199 mg/dL 10/07/2024 10:59 AM EST [facility] Comment:Supplemental ranges: <140 mg/dL before meals <180 mg/dL all other times of the day. Blood CAPILLARY BLOOD / Unknown 10/07/2024 10:58 AM EST 10/07/2024 10:59 AM EST Hayley Torres MD POINT OF CARE TEST O RDERABLES Performing Organization Address [facility] de Phone Number [facility] [place] [address] * (ABNORMAL) POC, GLUCOSE (10/07/2024 7:42 AM EST) Glucometer, POC 201(H) 65 - 199 mg/dL 10/07/2024 7:42 AM EST [facility] Comment:Supplemental ranges: <140 mg/dL before meals <180 mg/dL all other times of the day. Blood CAPILLARY BLOOD / Unknown 10/07/2024 7:42 AM EST 10/07/2024 7:43 AM EST Hayley Torres MD POINT OF CARE TEST O GILDA Performing Organization Address [facility] Co de Phone Number [facility] [place] [address] * POC, GLUCOSE (10/07/2024 3:58 AM EST) Glucometer, POC 150 65 - 199 mg/dL 10/07/2024 3:58 AM EST [facility] Comment:Supplemental ranges: <140 mg/dL before meals <180 mg/dL all other times of the day. Blood CAPILLARY BLOOD / Unknown 10/07/2024 3:58 AM EST 10/07/2024 3:58 AM EST Hayley Torres MD POINT OF CARE TEST O GILDA Performing Organization Address [facility] Co de Phone Number [facility] [place] [address] * (ABNORMAL) CBC (with Diff) (10/07/2024 12:06 AM EST) White Blood Cell 11.27(H) 4.00 - 9.50 x10(3)/mc L 10/07/2024 12:19 AM EST [facility] Red Blood Cell 3.47(L) 4.58 - 5.54 x10(6)/mc L 10/07/2024 12:19 AM [facility] Hemoglobin 10.1(L) 13.7 - 16.5 g/dL 10/07/2024 12:19 AM [facility] Hematocrit 30.9(L) 40.5 - 48.5 % 10/07/2024 12:19 AM [facility] Mean Cell Volume 89.0 82.9 - 93.1 fL 10/07/2024 12:19 AM [facility] Mean Cell Hemoglobin 29.1 27.5 - 32.1 pg 10/07/2024 12:19 AM [facility] Mean Cell Hemoglobin Concentration 32.7 32.0 - 35.7 g/dL 10/07/2024 12:19 AM [facility] Platelet 789(H) 145 - 357 x10(3)/mc L 10/07/2024 12:19 AM [facility] Mean Platelet Volume 9.0 7.6 - 12.9 fL 10/07/2024 12:19 AM [facility] RDW Standard Deviation 45.7(H) 36.0 - 45.0 fL 10/07/2024 12:19 AM [facility] RDW coefficient of variation 14.3(H) 11.4 - 13.8 % 10/07/2024 12:19 AM [facility] NRBC% auto 0.0 % 10/07/2024 12:19 AM [facility] NRBC Absolute <0.01 <0.01 x10(3)/mc L 10/07/2024 12:19 AM [facility] Neutrophil % 62.9 % 10/07/2024 12:19 AM [facility] Neutrophil Absolute (ANC) - Automated 7.09(H) 1.70 - 6.10 x10(3)/mc L 10/07/2024 12:19 AM [facility] Lymph % 28.3 % 10/07/2024 12:19 AM [facility] Lymph Absolute 3.19 0.90 - 3.20 x10(3)/mc L 10/07/2024 12:19 AM [facility] Monocyte % 5.7 % 10/07/2024 12:19 AM [facility] Monocyte Absolute 0.64 0.30 - 0.90 x10(3)/mc L 10/07/2024 12:19 AM [facility] Eos % 1.5 % 10/07/2024 12:19 AM [facility] Eos Absolute 0.17 0.00 - 0.40 x10(3)/mc L 10/07/2024 12:19 AM [facility] Basophil % 0.7 % 10/07/2024 12:19 AM [facility] Baso Absolute 0.08 0.00 - 0.10 x10(3)/mc L 10/07/2024 12:19 AM [facility] Immature Gran % 0.9 % 12:19 AM [facility] Immature Gran Absolute 0.10(H) 0.00 - 0.04 x10(3)/mc L 10/07/2024 12:19 AM [facility] Blood VENOUS BLOOD SPECIMEN / Unknown Venipuncture / Unknown 10/07/2024 12:06 AM EST 10/07/2024 12:11 AM EST Hayley Torres MD HEMATOLOGY ORDERABLE S [facility] [place] [address] * (ABNORMAL) Basic Metabolic Panel (10/07/2024 12:06 AM EST) Glucose 145 65 - 199 mg/dL 10/07/2024 12:40 AM EST [facility] Comment:Glucose Concentratio n >=200 mg/dL plus symptoms is consistent with Diabetes Mellitus. Blood Urea Nitrogen 18 10 - 20 mg/dL 10/07/2024 12:40 AM [facility] Creatinine 0.61(L) 0.80 - 1.50 mg/dL 10/07/2024 12:40 AM EST [facility] Sodium 139 135 - 145 mMol/L 10/07/2024 12:40 AM [facility] Potassium 4.0 3.5 - 5.0 mMol/L 10/07/2024 12:40 AM [facility] Chloride 104 98 - 107 mMol/L 10/07/2024 12:40 AM [facility] Carbon Dioxide 25 22 - 31 mMol/L 10/07/2024 12:40 AM [facility] Anion Gap 10 5 - 15 mMol/L 10/07/2024 12:40 AM [facility] Calcium 9.0 8.5 - 10.5 mg/dL 10/07/2024 12:40 AM [facility] Est Glomerular Filtration Rate - Male 117 mL/min/1. 73 m?? 10/07/2024 12:40 AM [facility] Comment: This patient's estimated GFR [...] AM EST Hayley Torres MD CHEMISTRY ORDERABLES [facility] [place] [address] * Phosphorus (10/07/2024 12:06 AM EST) Phosphorus 4.2 2.5 - 4.5 mg/dL 10/07/2024 12:40 AM EST [facility] Blood VENOUS BLOOD SPECIMEN / Unknown Venipuncture / Unknown 10/07/2024 12:06 AM EST 10/07/2024 12:11 AM EST Hayley Torres MD CHEMISTRY ORDERABLES Performing Organization Address City/[facility]/ZIP Co de Phone Number [facility] [place] [address] * Magnesium (10/07/2024 12:06 AM EST) Magnesium 0.85 0.69 - 1.07 mMol/L 10/07/2024 12:40 AM EST [facility] Blood VENOUS BLOOD SPECIMEN / Unknown Venipuncture / Unknown 10/07/2024 12:06 AM EST 10/07/2024 12:11 AM EST Hayley Torres MD CHEMISTRY ORDERABLES Performing Organization Address City/[facility]/ZIP Co de Phone Number [facility] [place] [address] * POC, GLUCOSE (10/07/2024 12:04 AM EST) Glucometer, POC 149 65 - 199 mg/dL 10/07/2024 12:04 AM EST [facility] Comment:Supplemental ranges: <140 mg/dL before meals <180 mg/dL all other times of the day. Blood CAPILLARY BLOOD / Unknown 10/07/2024 12:04 AM EST 10/07/2024 12:05 AM EST Hayley Torres MD POINT OF CARE TEST O RDERABLES Performing Organization Address City/[facility]/ZIP Co de Phone Number [facility] [place] [address] * POC, GLUCOSE (10/06/2024 7:24 PM EST) Glucometer, POC 151 65 - 199 mg/dL 10/06/2024 7:24 PM EST [facility] Comment:Supplemental ranges: <140 mg/dL before meals <180 mg/dL all other times of the day. Blood CAPILLARY BLOOD / Unknown 10/06/2024 7:24 PM EST 10/06/2024 7:24 PM EST Hayley Torres MD POINT OF CARE TEST Stephanie VO Performing Organization Address [facility] Co de Phone Number [facility] [place] [place] [address] * POC, GLUCOSE (10/06/2024 5:32 PM EST) Glucometer, POC 126 65 - 199 mg/dL 10/06/2024 5:32 PM EST [facility] Comment:Supplemental ranges: <140 mg/dL before meals <180 mg/dL all other times of the day. Blood CAPILLARY BLOOD / Unknown 10/06/2024 5:32 PM EST 10/06/2024 5:32 PM EST Hayley Torres MD POINT OF CARE TEST O GILDA Performing Organization Address [facility] de Phone Number [facility] [place] [address] * XR PICC Placement Over 5 Years with Imaging Guidance (IV Team) (10/06/2024 3:04 PM EST) WORKSTATION ID [id number] RAD Anatomical Region Laterality Modality N/A Radio [...] have questions please contact the health healthcare insurance sales agent that requested your imaging first. ? Electronically signed by: Charles Hamilton MD, [facility] ??([phone]), at 10/06/2024 3:43 PM Narrative 10/06/2024 3:43 [...] who have questions please contactthe health healthcare insurance sales agent that requested your imaging first. Electronically signed by: Charles Hamilton MD, [facility]([phone]), at 10/06/2024 3:43 PM Hayley Torres MD IMG FLUORO ORDERABLE S * Place PICC Line: Contact Vascular Access Page [phone] Extremity to exclude: No restrictions; Is PICC [...] to the planned procedure. Hand Hygiene: The corporate travel coordinator did perform hand hygiene prior to line insertion. Catheter type: PICC Lot number: [id number] Procedure Technique: Skin was prepped with chlorhexidine. [...] - 199 mg/dL 10/06/2024 12:12 PM EST [facility] Comment:Supplemental ranges: <140 mg/dL before meals <180 mg/dL all other times of the day. Blood CAPILLARY BLOOD / Unknown 10/06/2024 12:12 PM EST 10/06/2024 12:12 PM EST Hayley Torres MD POINT OF CARE TEST O GILDA Performing Organization Address [facility] Co de Phone Number [facility] [place] [address] * (ABNORMAL) POC, GLUCOSE (10/06/2024 7:34 AM EST) Glucometer, POC 209(H) 65 - 199 mg/dL 10/06/2024 7:34 AM EST [facility] Comment:Supplemental ranges: <140 mg/dL before meals <180 mg/dL all other times of the day. Blood CAPILLARY BLOOD / Unknown 10/06/2024 7:34 AM EST 10/06/2024 7:34 AM EST Hayley Torres MD POINT OF CARE TEST O GILDA Performing Organization Address City/[facility]/ZIP Co de Phone Number [facility] [place] [address] * POC, GLUCOSE (10/06/2024 3:29 AM EST) Glucometer, POC 151 65 - 199 mg/dL 10/06/2024 3:29 AM EST [facility] Comment:Supplemental ranges: <140 mg/dL before meals <180 mg/dL all other times of the day. Blood CAPILLARY BLOOD / Unknown 10/06/2024 3:29 AM EST 10/06/2024 3:29 AM EST Hayley Torres MD POINT OF CARE TEST O RDERABLES [facility] [place] [address] * Vancomycin Level, Random (10/06/2024 12:03 AM EST) [facility] Vancomycin, Random 20.5 mg/L 2023 9:00 AM [facility] Comment:This level is for de termination of the patient's vancomycin anmy-kbxpm-vkx-curve (AUC) value. Contact the inpatient pharmacy for interpretation. Blood VENOUS BLOOD SPECIMEN / Unknown Venipuncture / Unknown 10/06/2024 12:03 AM EST 10/06/2024 12:15 AM EST Hayley Torres MD CHEMISTRY ORDERABLES Performing Organization Address City/[facility] Co de Phone Number [facility] [place] [address] * (ABNORMAL) CBC (with Diff) (10/06/2024 12:03 AM EST) [facility] White Blood Cell 12.26(H) 4.00 - 9.50 x10(3)/mc L 10/06/2024 12:19 AM [facility] Red Blood Cell 3.49(L) 4.58 - 5.54 x10(6)/mc L 10/06/2024 12:19 AM [facility] Hemoglobin 10.1(L) 13.7 - 16.5 g/dL 10/06/2024 12:19 AM [facility] Hematocrit 30.9(L) 40.5 - 48.5 % 10/06/2024 12:19 AM [facility] Mean Cell Volume 88.5 82.9 - 93.1 fL 10/06/2024 12:19 AM [facility] Mean Cell Hemoglobin 28.9 27.5 - 32.1 pg 10/06/2024 12:19 AM [facility] Mean Cell Hemoglobin Concentration 32.7 32.0 - 35.7 g/dL 10/06/2024 12:19 AM [facility] Platelet 772(H) 145 - 357 x10(3)/mc L 10/06/2024 12:19 AM [facility] Mean Platelet Volume 9.0 7.6 - 12.9 fL 10/06/2024 12:19 AM [facility] RDW Standard Deviation 46.0(H) 36.0 - 45.0 fL 10/06/2024 12:19 AM [facility] RDW coefficient of variation 14.5(H) 11.4 - 13.8 % 10/06/2024 12:19 AM [facility] NRBC% auto 0.0 % 10/06/2024 12:19 AM [facility] NRBC Absolute <0.01 <0.01 x10(3)/mc L 10/06/2024 12:19 AM [facility] Neutrophil % 66.7 % 10/06/2024 12:19 AM [facility] Neutrophil Absolute (ANC) - Automated 8.18(H) 1.70 - 6.10 x10(3)/mc L 10/06/2024 12:19 AM [facility] Lymph % 24.1 % 10/06/2024 12:19 AM [facility] Lymph Absolute 2.95 0.90 - 3.20 x10(3)/mc L 10/06/2024 12:19 AM [facility] Monocyte % 6.2 % 10/06/2024 12:19 AM [facility] Monocyte Absolute 0.76 0.30 - 0.90 x10(3)/mc L 10/06/2024 12:19 AM [facility] Eos % 1.3 % 10/06/2024 12:19 AM [facility] Eos Absolute 0.16 0.00 - 0.40 x10(3)/mc L 10/06/2024 12:19 AM [facility] Basophil % 0.5 % 10/06/2024 12:19 AM [facility] Baso Absolute 0.06 0.00 - 0.10 x10(3)/mc L 10/06/2024 12:19 AM [facility] Immature Gran % 1.2 % 12:19 AM [facility] Immature Gran Absolute 0.15(H) 0.00 - 0.04 x10(3)/mc L 10/06/2024 12:19 AM [facility] Blood VENOUS BLOOD SPECIMEN / Unknown Venipuncture / Unknown 10/06/2024 12:03 AM EST 10/06/2024 12:15 AM EST Hayley Torres MD HEMATOLOGY ORDERABLE S Performing Organization Address City/State/[facility] Co de Phone Number [facility] [place] [address] * Basic Metabolic Panel (10/06/2024 12:03 AM EST) Glucose 94 65 - 199 mg/dL 10/06/2024 12:44 AM [facility] Comment:Glucose Concentratio n >=200 mg/dL plus symptoms is consistent with Diabetes Mellitus. Blood Urea Nitrogen 17 10 - 20 mg/dL 10/06/2024 12:44 AM [facility] Creatinine 0.85 0.80 - 1.50 mg/dL 10/06/2024 12:44 AM [facility] Sodium 139 135 - 145 mMol/L 10/06/2024 12:44 AM [facility] Potassium 4.3 3.5 - 5.0 mMol/L 10/06/2024 12:44 AM [facility] Chloride 103 98 - 107 mMol/L 10/06/2024 12:44 AM [facility] Carbon Dioxide 22 22 - 31 mMol/L 10/06/2024 12:44 AM [facility] Anion Gap 14 5 - 15 mMol/L 10/06/2024 12:44 AM EST [facility] Calcium 8.8 8.5 - 10.5 mg/dL 10/06/2024 12:44 AM EST [facility] Est Glomerular Filtration Rate - Male 106 mL/min/1. 73 m?? 10/06/2024 12:44 AM EST [facility] Comment: This patient's estimated [...] AM EST Hayley Torres MD CHEMISTRY ORDERABLES [facility] [place] [address] * Phosphorus (10/06/2024 12:03 AM EST) Phosphorus 4.3 2.5 - 4.5 mg/dL 10/06/2024 12:44 AM EST [facility] Blood VENOUS BLOOD SPECIMEN / Unknown Venipuncture / Unknown 10/06/2024 12:03 AM EST 10/06/2024 12:15 AM EST Hayley Torres MD CHEMISTRY ORDERABLES [facility] [place] [address] * Magnesium (10/06/2024 12:03 AM EST) Magnesium 0.83 0.69 - 1.07 mMol/L 10/06/2024 12:44 AM EST [facility] Blood VENOUS BLOOD SPECIMEN / Unknown Venipuncture / Unknown 10/06/2024 12:03 AM EST 10/06/2024 12:15 AM EST Hayley Torres MD CHEMISTRY ORDERABLES Performing Organization Address City/[facility]/ZIP Co de Phone Number [facility] [place] [address] * POC, GLUCOSE (10/06/2024 12:02 AM EST) Glucometer, POC 98 65 - 199 mg/dL 10/06/2024 12:02 AM EST [facility] Comment:Supplemental ranges: <140 mg/dL before meals <180 mg/dL all other times of the day. Blood CAPILLARY BLOOD / Unknown 10/06/2024 12:02 AM EST 10/06/2024 12:02 AM EST Hayley Torres MD POINT OF CARE TEST O RDERABLES Performing Organization Address [facility] Co de Phone Number [facility] [place] [address] * POC, GLUCOSE (10/05/2024 7:22 PM EST) Glucometer, POC 186 65 - 199 mg/dL 10/05/2024 7:23 PM EST [facility] Comment:Supplemental ranges: <140 mg/dL before meals <180 mg/dL all other times of the day. Blood CAPILLARY BLOOD / Unknown 10/05/2024 7:22 PM EST 10/05/2024 7:23 PM EST Hayley Torres MD POINT OF CARE TEST O RDERABLES Performing Organization Address City/[facility]/ZIP Co de Phone Number [facility] [place] [address] * POC, GLUCOSE (10/05/2024 5:35 PM EST) Glucometer, POC 177 65 - 199 mg/dL 10/05/2024 5:35 PM EST [facility] Comment:Supplemental ranges: <140 mg/dL before meals <180 mg/dL all other times of the day. Blood CAPILLARY BLOOD / Unknown 10/05/2024 5:35 PM EST 10/05/2024 5:35 PM EST Hayley Torres MD POINT OF CARE TEST O GILDA Performing Organization Address City/[facility] Co de Phone Number [facility] [place] [address] * POC, GLUCOSE (10/05/2024 3:57 PM EST) Glucometer, POC 141 65 - 199 mg/dL 10/05/2024 3:57 PM EST [facility] Comment:Supplemental ranges: <140 mg/dL before meals <180 mg/dL all other times of the day. Blood CAPILLARY BLOOD / Unknown 10/05/2024 3:57 PM EST 10/05/2024 3:57 PM EST Hayley Torres MD POINT OF CARE TEST O GILDA Performing Organization Address [facility]/ZIP Co de Phone Number [facility] [place] [address] * POC, GLUCOSE (10/05/2024 11:50 AM EST) Glucometer, POC 134 65 - 199 mg/dL 10/05/2024 11:50 AM EST [facility] Comment:Supplemental ranges: <140 mg/dL before meals <180 mg/dL all other times of the day. Blood CAPILLARY BLOOD / Unknown 10/05/2024 11:50 AM EST 10/05/2024 11:50 AM EST Hayley Torres MD POINT OF CARE TEST O GILDA [facility] [place] [address] * POC, GLUCOSE (10/05/2024 7:51 AM EST) Glucometer, POC 114 65 - 199 mg/dL 10/05/2024 7:51 AM EST [facility] Comment:Supplemental ranges: <140 mg/dL before meals <180 mg/dL all other times of the day. Blood CAPILLARY BLOOD / Unknown 10/05/2024 7:51 AM EST 10/05/2024 7:51 AM EST Hayley Torres MD POINT OF CARE TEST O GILDA Performing Organization Address City/[facility]/ZIP Co de Phone Number [facility] [place] [address] * POC, GLUCOSE (10/05/2024 4:18 AM EST) Glucometer, POC 147 65 - 199 mg/dL 10/05/2024 4:18 AM EST [facility] Comment:Supplemental ranges: <140 mg/dL before meals <180 mg/dL all other times of the day. Blood CAPILLARY BLOOD / Unknown 10/05/2024 4:18 AM EST 10/05/2024 4:18 AM EST Hayley Torres MD POINT OF CARE TEST O GILDA Performing Organization Address City/[facility]/ZIP Co de Phone Number [facility] [place] [address] * (ABNORMAL) CBC (with Diff) (10/04/2024 11:50 PM EST) White Blood Cell 12.73(H) 4.00 - 9.50 x10(3)/mc L 10/05/2024 12:10 AM EST [facility] Red Blood Cell 3.45(L) 4.58 - 5.54 x10(6)/mc L 10/05/2024 12:10 AM EST [facility] Hemoglobin 9.8(L) 13.7 - 16.5 g/dL 10/05/2024 12:10 AM [facility] Hematocrit 30.6(L) 40.5 - 48.5 % 10/05/2024 12:10 AM [facility] Mean Cell Volume 88.7 82.9 - 93.1 fL 10/05/2024 12:10 AM [facility] Mean Cell Hemoglobin 28.4 27.5 - 32.1 pg 10/05/2024 12:10 AM [facility] Mean Cell Hemoglobin Concentration 32.0 32.0 - 35.7 g/dL 10/05/2024 12:10 AM [facility] Platelet 709(H) 145 - 357 x10(3)/mc L 10/05/2024 12:10 AM [facility] Mean Platelet Volume 8.9 7.6 - 12.9 fL 10/05/2024 12:10 AM [facility] RDW Standard Deviation 45.4(H) 36.0 - 45.0 fL 10/05/2024 12:10 AM [facility] RDW coefficient of variation 14.3(H) 11.4 - 13.8 % 10/05/2024 12:10 AM [facility] NRBC% auto 0.0 % 10/05/2024 12:10 AM [facility] NRBC Absolute <0.01 <0.01 x10(3)/mc L 10/05/2024 12:10 AM [facility] Neutrophil % 68.5 % 10/05/2024 12:10 AM [facility] Neutrophil Absolute (ANC) - Automated 8.72(H) 1.70 - 6.10 x10(3)/mc L 10/05/2024 12:10 AM [facility] Lymph % 21.3 % 10/05/2024 12:10 AM [facility] Lymph Absolute 2.71 0.90 - 3.20 x10(3)/mc L 10/05/2024 12:10 AM EST [facility] Monocyte % 5.5 % 10/05/2024 12:10 AM EST [facility] Monocyte Absolute 0.70 0.30 - 0.90 x10(3)/mc L 10/05/2024 12:10 AM EST [facility] Eos % 1.6 % 10/05/2024 12:10 AM [facility] Eos Absolute 0.20 0.00 - 0.40 x10(3)/mc L 10/05/2024 12:10 AM EST [facility] Basophil % 0.5 % 10/05/2024 12:10 AM [facility] Baso Absolute 0.07 0.00 - 0.10 x10(3)/mc L 10/05/2024 12:10 AM [facility] Immature Gran % 2.6 % 12:10 AM [facility] Immature Gran Absolute 0.33(H) 0.00 - 0.04 x10(3)/mc L 10/05/2024 12:10 AM [facility] Blood VENOUS BLOOD SPECIMEN / Unknown Venipuncture / Unknown 10/04/2024 11:50 PM EST 10/05/2024 12:03 AM EST Hayley Torres MD HEMATOLOGY ORDERABLE S [facility] [place] [address] * (ABNORMAL) Basic Metabolic Panel (10/04/2024 11:50 PM EST) Glucose 104 65 - 199 mg/dL 10/05/2024 12:35 AM [facility] Comment:Glucose Concentratio n >=200 mg/dL plus symptoms is consistent with Diabetes Mellitus. Blood Urea Nitrogen 13 10 - 20 mg/dL 10/05/2024 12:35 AM [facility] Creatinine 0.55(L) 0.80 - 1.50 mg/dL 10/05/2024 12:35 AM [facility] Sodium 140 135 - 145 mMol/L 10/05/2024 12:35 AM [facility] Potassium 3.9 3.5 - 5.0 mMol/L 10/05/2024 12:35 AM [facility] Chloride 105 98 - 107 mMol/L 10/05/2024 12:35 AM [facility] Carbon Dioxide 24 22 - 31 mMol/L 10/05/2024 12:35 AM [facility] Anion Gap 11 5 - 15 mMol/L 10/05/2024 12:35 AM [facility] Calcium 9.0 8.5 - 10.5 mg/dL 10/05/2024 12:35 AM [facility] Est Glomerular Filtration Rate - Male 121 mL/min/1. 73 m?? 10/05/2024 12:35 AM [facility] Comment: This patient's estimated GFR [...] AM EST Hayley Torres MD CHEMISTRY ORDERABLES [facility] [place] [address] * Phosphorus (10/04/2024 11:50 PM EST) Phosphorus 4.2 2.5 - 4.5 mg/dL 10/05/2024 12:35 AM EST [facility] Blood VENOUS BLOOD SPECIMEN / Unknown Venipuncture / Unknown 10/04/2024 11:50 PM EST 10/05/2024 12:03 AM EST Hayley Torres MD CHEMISTRY ORDERABLES Performing Organization Address City/[facility]/ZIP Co de Phone Number [facility] [place] [address] * Magnesium (10/04/2024 11:50 PM EST) Magnesium 0.89 0.69 - 1.07 mMol/L 10/05/2024 12:35 AM EST [facility] Blood VENOUS BLOOD SPECIMEN / Unknown Venipuncture / Unknown 10/04/2024 11:50 PM EST 10/05/2024 12:03 AM EST Hayley Torres MD CHEMISTRY ORDERABLES Performing Organization Address [facility]/ZIP Co de Phone Number [facility] [place] [address] * POC, GLUCOSE (10/04/2024 11:36 PM EST) Glucometer, POC 121 65 - 199 mg/dL 10/04/2024 11:36 PM EST [facility] Comment:Supplemental ranges: <140 mg/dL before meals <180 mg/dL all other times of the day. Blood CAPILLARY BLOOD / Unknown 10/04/2024 11:36 PM EST 10/04/2024 11:36 PM EST Hayley Torres MD POINT OF CARE TEST O RDERABLES Performing Organization Address City/[facility]/ZIP Co de Phone Number [facility] [place] [address] * POC, GLUCOSE (10/04/2024 7:32 PM EST) Glucometer, POC 163 65 - 199 mg/dL 10/04/2024 7:32 PM EST [facility] Comment:Supplemental ranges: <140 mg/dL before meals <180 mg/dL all other times of the day. Blood CAPILLARY BLOOD / Unknown 10/04/2024 7:32 PM EST 10/04/2024 7:32 PM EST Hayley Torres MD POINT OF CARE TEST O RDERABLES Performing Organization Address [facility] Co de Phone Number [facility] [place] [address] * EKG 12 Lead (10/04/2024 7:14 PM EST) Ventricular rate 81 BPM MUSE SYSTEM Atrial Rate 81 BPM MUSE SYSTEM P-R Interval 174 ms MUSE SYSTEM QRS Duration 112 ms MUSE SYSTEM Q-T Interval 422 ms MUSE SYSTEM QTC Calculated (Bezet) 490 ms MUSE SYSTEM Calculated P [place] 34 degrees MUSE SYSTEM Calculated R [place] 11 degrees MUSE SYSTEM Calculated T [place] 59 degrees MUSE SYSTEM INTERPRETATION Normal sinus rhythm Cannot rule out Inferior infarct , age undetermined Nonspecific T wave abnormality Borderline ECG When compared with ECG of 29-MAY-2024 14:51, Nonspecific T wave abnormality now evident in Lateral leads Confirmed by MD Robert, Deandre Guadarrama ([id number]) on 10/05/2024 3:35:42 PM MUSE SYSTEM 10/04/2024 7:14 PM EST 10/05/2024 3:35 PM EST Hayley Torres MD ECG ORDERABLES Performing Organization Address [facility] de Phone Number MUSE SYSTEM * POC, GLUCOSE (10/04/2024 5:07 PM EST) Glucometer, POC 95 65 - 199 mg/dL 10/04/2024 5:07 PM EST [facility] Comment:Supplemental ranges: <140 mg/dL before meals <180 mg/dL all other times of the day. Blood CAPILLARY BLOOD / Unknown 10/04/2024 5:07 PM EST 10/04/2024 5:07 PM EST Hayley Torres MD POINT OF CARE TEST O RDERAHERNANDEZ Performing Organization Address [facility] de Phone Number [facility] [place] [address] * POC, GLUCOSE (10/04/2024 4:49 PM EST) Glucometer, POC 70 65 - 199 mg/dL 10/04/2024 4:50 PM EST [facility] Comment:Supplemental ranges: <140 mg/dL before meals <180 mg/dL all other times of the day. Blood CAPILLARY BLOOD / Unknown 10/04/2024 4:49 PM EST 10/04/2024 4:50 PM EST Hayley Torres MD POINT OF CARE TEST O GILDA Performing Organization Address [facility] de Phone Number [facility] [place] [address] * POC, GLUCOSE (10/04/2024 11:49 AM EST) Glucometer, POC 93 65 - 199 mg/dL 10/04/2024 11:49 AM EST [facility] Comment:Supplemental ranges: <140 mg/dL before meals <180 mg/dL all other times of the day. Blood CAPILLARY BLOOD / Unknown 10/04/2024 11:49 AM EST 10/04/2024 11:49 AM EST Hayley Torres MD POINT OF CARE TEST O GILDA Performing Organization Address [facility] Co de Phone Number [facility] [place] [address] * Vancomycin, trough (10/04/2024 7:53 AM EST) Vancomycin, Trough 19.8 10.0 - 20.0 mg/L 10/04/2024 9:16 AM EST [facility] Comment: Varies according to infection source. Blood VENOUS BLOOD SPECIMEN / Unknown Venipuncture / Unknown 10/04/2024 7:53 AM EST 10/04/2024 8:11 AM EST Hayley Torres MD CHEMISTRY ORDERABLES Performing Organization Address [facility] Co de Phone Number [facility] [place] [address] * POC, GLUCOSE (10/04/2024 7:51 AM EST) Glucometer, POC 105 65 - 199 mg/dL 10/04/2024 7:52 AM EST [facility] Comment:Supplemental ranges: <140 mg/dL before meals <180 mg/dL all other times of the day. Blood CAPILLARY BLOOD / Unknown 10/04/2024 7:51 AM EST 10/04/2024 7:52 AM EST Hayley Torres MD POINT OF CARE TEST O RDERABLES Performing Organization Address [facility] de Phone Number [facility] [place] [address] * POC, GLUCOSE (10/04/2024 3:53 AM EST) [facility] Signature Glucometer, POC 90 65 - 199 mg/dL 10/04/2024 3:53 AM EST [facility] Comment:Supplemental ranges: <140 mg/dL before meals <180 mg/dL all other times of the day. Blood CAPILLARY BLOOD / Unknown 10/04/2024 3:53 AM EST 10/04/2024 3:53 AM EST Hayley Torres MD POINT OF CARE TEST O GILDA Performing Organization Address [facility] Co de Phone Number [facility] [place] [address] * (ABNORMAL) CBC (with Diff) (10/04/2024 12:08 AM EST) [facility] White Blood Cell 12.58(H) 4.00 - 9.50 x10(3)/mc L 10/04/2024 12:51 AM EST [facility] Red Blood Cell 3.28(L) 4.58 - 5.54 x10(6)/mc L 10/04/2024 12:51 AM [facility] Hemoglobin 9.4(L) 13.7 - 16.5 g/dL 10/04/2024 12:51 AM [facility] Hematocrit 28.8(L) 40.5 - 48.5 % 10/04/2024 12:51 AM [facility] Mean Cell Volume 87.8 82.9 - 93.1 fL 10/04/2024 12:51 AM [facility] Mean Cell Hemoglobin 28.7 27.5 - 32.1 pg 10/04/2024 12:51 AM [facility] Mean Cell Hemoglobin Concentration 32.6 32.0 - 35.7 g/dL 10/04/2024 12:51 AM [facility] Platelet 670(H) 145 - 357 x10(3)/mc L 10/04/2024 12:51 AM [facility] Mean Platelet Volume 9.1 7.6 - 12.9 fL 10/04/2024 12:51 AM [facility] RDW Standard Deviation 44.8 36.0 - 45.0 fL 10/04/2024 12:51 AM [facility] RDW coefficient of variation 13.9(H) 11.4 - 13.8 % 10/04/2024 12:51 AM [facility] NRBC% auto 0.0 % 10/04/2024 12:51 AM [facility] NRBC Absolute <0.01 <0.01 x10(3)/mc L 10/04/2024 12:51 AM [facility] Neutrophil % 60.3 % 10/04/2024 12:51 AM [facility] Neutrophil Absolute (ANC) - Automated 7.57(H) 1.70 - 6.10 x10(3)/mc L 10/04/2024 12:51 AM [facility] Lymph % 27.4 % 10/04/2024 12:51 AM [facility] Lymph Absolute 3.45(H) 0.90 - 3.20 x10(3)/mc L 10/04/2024 12:51 AM EST [facility] Monocyte % 5.4 % 10/04/2024 12:51 AM [facility] Monocyte Absolute 0.68 0.30 - 0.90 x10(3)/mc L 10/04/2024 12:51 AM [facility] Eos % 1.5 % 10/04/2024 12:51 AM [facility] Eos Absolute 0.19 0.00 - 0.40 x10(3)/mc L 10/04/2024 12:51 AM [facility] Basophil % 0.6 % 10/04/2024 12:51 AM [facility] Baso Absolute 0.08 0.00 - 0.10 x10(3)/mc L 10/04/2024 12:51 AM [facility] Immature Gran % 4.8 % 12:51 AM [facility] Immature Gran Absolute 0.61(H) 0.00 - 0.04 x10(3)/mc L 10/04/2024 12:51 AM [facility] Blood VENOUS BLOOD SPECIMEN / Unknown Venipuncture / Unknown 10/04/2024 12:08 AM EST 10/04/2024 12:15 AM EST Hayley Torres MD HEMATOLOGY ORDERABLE S [facility] [place] [address] * (ABNORMAL) Basic Metabolic Panel (10/04/2024 12:08 AM EST) Glucose 135 65 - 199 mg/dL 10/04/2024 12:53 AM [facility] Comment:Glucose Concentratio n >=200 mg/dL plus symptoms is consistent with Diabetes Mellitus. Blood Urea Nitrogen 19 10 - 20 mg/dL 10/04/2024 12:53 AM [facility] Creatinine 0.56(L) 0.80 - 1.50 mg/dL 10/04/2024 12:53 AM [facility] Sodium 138 135 - 145 mMol/L 10/04/2024 12:53 AM [facility] Potassium 4.4 3.5 - 5.0 mMol/L 10/04/2024 12:53 AM [facility] Chloride 105 98 - 107 mMol/L 10/04/2024 12:53 AM [facility] Carbon Dioxide 24 22 - 31 mMol/L 10/04/2024 12:53 AM [facility] Anion Gap 9 5 - 15 mMol/L 10/04/2024 12:53 AM [facility] Calcium 8.7 8.5 - 10.5 mg/dL 10/04/2024 12:53 AM [facility] Est Glomerular Filtration Rate - Male 120 mL/min/1. 73 m?? 10/04/2024 12:53 AM [facility] Comment: This patient's estimated GFR [...] AM EST Hayley Torres MD CHEMISTRY ORDERABLES [facility] [place] [address] * Phosphorus (10/04/2024 12:08 AM EST) Phosphorus 3.7 2.5 - 4.5 mg/dL 10/04/2024 12:53 AM EST [facility] Blood VENOUS BLOOD SPECIMEN / Unknown Venipuncture / Unknown 10/04/2024 12:08 AM EST 10/04/2024 12:15 AM EST Hayley Torres MD CHEMISTRY ORDERABLES Performing Organization Address City/[facility]/ZIP Co de Phone Number [facility] [place] [address] * Magnesium (10/04/2024 12:08 AM EST) Magnesium 0.89 0.69 - 1.07 mMol/L 10/04/2024 12:53 AM EST [facility] Blood VENOUS BLOOD SPECIMEN / Unknown Venipuncture / Unknown 10/04/2024 12:08 AM EST 10/04/2024 12:15 AM EST Hayley Torres MD CHEMISTRY ORDERABLES Performing Organization Address City/[facility]/ZIP Co de Phone Number [facility] [place] [address] * POC, GLUCOSE (10/04/2024 12:01 AM EST) Glucometer, POC 132 65 - 199 mg/dL 10/04/2024 12:02 AM EST [facility] Comment:Supplemental ranges: <140 mg/dL before meals <180 mg/dL all other times of the day. Blood CAPILLARY BLOOD / Unknown 10/04/2024 12:01 AM EST 10/04/2024 12:02 AM EST Hayley Torres MD POINT OF CARE TEST O RDERABLES Performing Organization Address City/[facility]/ZIP Co de Phone Number [facility] [place] [address] * POC, GLUCOSE (10/03/2024 7:56 PM EST) Glucometer, POC 123 65 - 199 mg/dL 10/03/2024 7:56 PM EST [facility] Comment:Supplemental ranges: <140 mg/dL before meals <180 mg/dL all other times of the day. Blood CAPILLARY BLOOD / Unknown 10/03/2024 7:56 PM EST 10/03/2024 7:57 PM EST Hayley Torres MD POINT OF CARE TEST O GILDA Performing Organization Address City/[facility]/ZIP Co de Phone Number [facility] [place] [address] * POC, GLUCOSE (10/03/2024 5:29 PM EST) Glucometer, POC 182 65 - 199 mg/dL 10/03/2024 5:30 PM EST [facility] Comment:Supplemental ranges: <140 mg/dL before meals <180 mg/dL all other times of the day. Blood CAPILLARY BLOOD / Unknown 10/03/2024 5:29 PM EST 10/03/2024 5:30 PM EST Hayley Torres MD POINT OF CARE TEST O GILDA Performing Organization Address [facility] Co de Phone Number [facility] [place] [address] * POC, GLUCOSE (10/03/2024 12:54 PM EST) Glucometer, POC 128 65 - 199 mg/dL 10/03/2024 12:54 PM EST [facility] Comment:Supplemental ranges: <140 mg/dL before meals <180 mg/dL all other times of the day. Blood CAPILLARY BLOOD / Unknown 10/03/2024 12:54 PM EST 10/03/2024 12:54 PM EST Hayley Torres MD POINT OF CARE TEST O GILDA Performing Organization Address City/[facility]/ZIP Co de Phone Number [facility] [place] [address] * POC, GLUCOSE (10/03/2024 7:59 AM EST) Glucometer, POC 115 65 - 199 mg/dL 10/03/2024 7:59 AM EST [facility] Comment:Supplemental ranges: <140 mg/dL before meals <180 mg/dL all other times of the day. Blood CAPILLARY BLOOD / Unknown 10/03/2024 7:59 AM EST 10/03/2024 7:59 AM EST Hayley Torres MD POINT OF CARE TEST O RDERAHERNANDEZ Performing Organization Address City/[facility]/ZIP Co de Phone Number [facility] [place] [address] * POC, GLUCOSE (10/03/2024 5:32 AM EST) Glucometer, POC 119 65 - 199 mg/dL 10/03/2024 5:32 AM EST [facility] Comment:Supplemental ranges: <140 mg/dL before meals <180 mg/dL all other times of the day. Blood CAPILLARY BLOOD / Unknown 10/03/2024 5:32 AM EST 10/03/2024 5:32 AM EST Hayley Torres MD POINT OF CARE TEST O GILDA Performing Organization Address City/[facility]/ZIP Co de Phone Number [facility] [place] [address] * POC, GLUCOSE (10/03/2024 4:16 AM EST) Glucometer, POC 152 65 - 199 mg/dL 10/03/2024 4:17 AM EST [facility] Comment:Supplemental ranges: <140 mg/dL before meals <180 mg/dL all other times of the day. Blood CAPILLARY BLOOD / Unknown 10/03/2024 4:16 AM EST 10/03/2024 4:17 AM EST Hayley Torres MD POINT OF CARE TEST O GILDA [facility] [place] [address] * (ABNORMAL) POC, GLUCOSE (10/03/2024 2:02 AM EST) [facility] Glucometer, POC 225(H) 65 - 199 mg/dL 10/03/2024 2:02 AM EST [facility] Comment:Supplemental ranges: <140 mg/dL before meals <180 mg/dL all other times of the day. Blood CAPILLARY BLOOD / Unknown 10/03/2024 2:02 AM EST 10/03/2024 2:02 AM EST Hayley Torres MD POINT OF CARE TEST O RDERABLES Performing Organization Address [facility]/ZIP Co de Phone Number [facility] [place] [address] * (ABNORMAL) CBC (with Diff) (10/03/2024 12:27 AM EST) [facility] White Blood Cell 15.33(H) 4.00 - 9.50 x10(3)/mc L 10/03/2024 12:51 AM [facility] Red Blood Cell 3.59(L) 4.58 - 5.54 x10(6)/mc L 10/03/2024 12:51 AM [facility] Hemoglobin 10.4(L) 13.7 - 16.5 g/dL 10/03/2024 12:51 AM [facility] Hematocrit 31.2(L) 40.5 - 48.5 % 10/03/2024 12:51 AM [facility] Mean Cell Volume 86.9 82.9 - 93.1 fL 10/03/2024 12:51 AM [facility] Mean Cell Hemoglobin 29.0 27.5 - 32.1 pg 10/03/2024 12:51 AM [facility] Mean Cell Hemoglobin Concentration 33.3 32.0 - 35.7 g/dL 10/03/2024 12:51 AM [facility] Platelet 693(H) 145 - 357 x10(3)/mc L 10/03/2024 12:51 AM [facility] Mean Platelet Volume 9.2 7.6 - 12.9 fL 10/03/2024 12:51 AM [facility] RDW Standard Deviation 42.4 36.0 - 45.0 fL 10/03/2024 12:51 AM [facility] RDW coefficient of variation 13.6 11.4 - 13.8 % 10/03/2024 12:51 AM [facility] NRBC% auto 0.0 % 10/03/2024 12:51 AM [facility] NRBC Absolute <0.01 <0.01 x10(3)/mc L 10/03/2024 12:51 AM [facility] Neutrophil % 77.1 % 10/03/2024 12:51 AM [facility] Neutrophil Absolute (ANC) - Automated 11.83(H) 1.70 - 6.10 x10(3)/mc L 10/03/2024 12:51 AM [facility] Lymph % 13.4 % 10/03/2024 12:51 AM [facility] Lymph Absolute 2.05 0.90 - 3.20 x10(3)/mc L 10/03/2024 12:51 AM [facility] Monocyte % 2.9 % 10/03/2024 12:51 AM [facility] Monocyte Absolute 0.45 0.30 - 0.90 x10(3)/mc L 10/03/2024 12:51 AM [facility] Eos % 0.5 % 10/03/2024 12:51 AM [facility] Eos Absolute 0.07 0.00 - 0.40 x10(3)/mc L 10/03/2024 12:51 AM [facility] Basophil % 0.4 % 10/03/2024 12:51 AM [facility] Baso Absolute 0.06 0.00 - 0.10 x10(3)/mc L 10/03/2024 12:51 AM EST [facility] Immature Gran % 5.7 % 12:51 AM [facility] Immature Gran Absolute 0.87(H) 0.00 - 0.04 x10(3)/mc L 10/03/2024 12:51 AM [facility] Blood VENOUS BLOOD SPECIMEN / Unknown Venipuncture / Unknown 10/03/2024 12:27 AM EST 10/03/2024 12:47 AM EST Hayley Torres MD HEMATOLOGY ORDERABLE S [facility] [place] [address] * (ABNORMAL) Basic Metabolic Panel (10/03/2024 12:27 AM EST) Glucose 208(H) 65 - 199 mg/dL 10/03/2024 1:14 AM [facility] Comment:Glucose Concentratio n >=200 mg/dL plus symptoms is consistent with Diabetes Mellitus. Blood Urea Nitrogen 15 10 - 20 mg/dL 10/03/2024 1:14 AM [facility] Creatinine 0.51(L) 0.80 - 1.50 mg/dL 10/03/2024 1:14 AM [facility] Sodium 136 135 - 145 mMol/L 10/03/2024 1:14 AM [facility] Potassium 4.1 3.5 - 5.0 mMol/L 10/03/2024 1:14 AM [facility] Chloride 103 98 - 107 mMol/L 10/03/2024 1:14 AM [facility] Carbon Dioxide 20(L) 22 - 31 mMol/L 10/03/2024 1:14 AM [facility] Anion Gap 13 5 - 15 mMol/L 10/03/2024 1:14 AM [facility] Calcium 8.4(L) 8.5 - 10.5 mg/dL 10/03/2024 1:14 AM EST [facility] Est Glomerular Filtration Rate - Male 124 mL/min/1. 73 m?? 10/03/2024 1:14 AM EST [facility] Comment: This patient's estimated [...] AM EST Hayley Torres MD CHEMISTRY ORDERABLES [facility] [place] [address] * Phosphorus (10/03/2024 12:27 AM EST) Phosphorus 3.5 2.5 - 4.5 mg/dL 10/03/2024 1:14 AM EST [facility] Blood VENOUS BLOOD SPECIMEN / Unknown Venipuncture / Unknown 10/03/2024 12:27 AM EST 10/03/2024 12:47 AM EST Hayley Torres MD CHEMISTRY ORDERABLES [facility] [place] [address] * Magnesium (10/03/2024 12:27 AM EST) Magnesium 0.83 0.69 - 1.07 mMol/L 10/03/2024 1:14 AM EST [facility] Blood VENOUS BLOOD SPECIMEN / Unknown Venipuncture / Unknown 10/03/2024 12:27 AM EST 10/03/2024 12:47 AM EST Hayley Torres MD CHEMISTRY ORDERABLES [facility] [place] [address] * (ABNORMAL) POC, GLUCOSE (10/03/2024 12:13 AM EST) Glucometer, POC 255(H) 65 - 199 mg/dL 10/03/2024 12:14 AM EST [facility] Comment:Supplemental ranges: <140 mg/dL before meals <180 mg/dL all other times of the day. Blood CAPILLARY BLOOD / Unknown 10/03/2024 12:13 AM EST 10/03/2024 12:14 AM EST Hayley Torres MD POINT OF CARE TEST O RDERABLES Performing Organization Address City/[facility]/ZIP Co de Phone Number [facility] [place] [address] * POC, GLUCOSE (10/02/2024 8:17 PM EST) Glucometer, POC 177 65 - 199 mg/dL 10/02/2024 8:17 PM EST [facility] Comment:Supplemental ranges: <140 mg/dL before meals <180 mg/dL all other times of the day. Blood CAPILLARY BLOOD / Unknown 10/02/2024 8:17 PM EST 10/02/2024 8:17 PM EST Hayley Torres MD POINT OF CARE TEST O RDERAHERNANDEZ [facility] [place] [address] * POC, GLUCOSE (10/02/2024 6:22 PM EST) Glucometer, POC 172 65 - 199 mg/dL 10/02/2024 6:22 PM EST [facility] Comment:Supplemental ranges: <140 mg/dL before meals <180 mg/dL all other times of the day. Blood CAPILLARY BLOOD / Unknown 10/02/2024 6:22 PM EST 10/02/2024 6:22 PM EST Hayley Torres MD POINT OF CARE TEST O GILDA Performing Organization Address City/[facility]/ZIP Co de Phone Number [facility] [place] [address] * POC, GLUCOSE (10/02/2024 5:01 PM EST) Glucometer, POC 104 65 - 199 mg/dL 10/02/2024 5:01 PM EST [facility] Comment:Supplemental ranges: <140 mg/dL before meals <180 mg/dL all other times of the day. Blood CAPILLARY BLOOD / Unknown 10/02/2024 5:01 PM EST 10/02/2024 5:01 PM EST Hayley Torres MD POINT OF CARE TEST O GILDA Performing Organization Address [facility] Co de Phone Number [facility] [place] [address] * POC, GLUCOSE (10/02/2024 3:05 PM EST) Glucometer, POC 113 65 - 199 mg/dL 10/02/2024 3:06 PM EST [facility] Comment:Supplemental ranges: <140 mg/dL before meals <180 mg/dL all other times of the day. Blood CAPILLARY BLOOD / Unknown 10/02/2024 3:05 PM EST 10/02/2024 3:06 PM EST Hayley Torres MD POINT OF CARE TEST O GILDA [facility] [place] [address] * POC, GLUCOSE (10/02/2024 11:12 AM EST) Glucometer, POC 146 65 - 199 mg/dL 10/02/2024 11:12 AM EST [facility] Comment:Supplemental ranges: <140 mg/dL before meals <180 mg/dL all other times of the day. Blood CAPILLARY BLOOD / Unknown 10/02/2024 11:12 AM EST 10/02/2024 11:12 AM EST Hayley Torres MD POINT OF CARE TEST O GILDA Performing Organization Address City/[facility]/ZIP Co de Phone Number [facility] [place] [address] * POC, GLUCOSE (10/02/2024 8:12 AM EST) Glucometer, POC 131 65 - 199 mg/dL 10/02/2024 8:12 AM EST [facility] Comment:Supplemental ranges: <140 mg/dL before meals <180 mg/dL all other times of the day. Blood CAPILLARY BLOOD / Unknown 10/02/2024 8:12 AM EST 10/02/2024 8:12 AM EST Hayley Torres MD POINT OF CARE TEST O GILDA Performing Organization Address City/[facility]/ZIP Co de Phone Number [facility] [place] [address] * POC, GLUCOSE (10/02/2024 4:19 AM EST) Glucometer, POC 131 65 - 199 mg/dL 10/02/2024 4:19 AM EST [facility] Comment:Supplemental ranges: <140 mg/dL before meals <180 mg/dL all other times of the day. Blood CAPILLARY BLOOD / Unknown 10/02/2024 4:19 AM EST 10/02/2024 4:19 AM EST Hayley Torres MD POINT OF CARE TEST O GILDA [facility] [place] [address] * Phosphorus (10/02/2024 12:41 AM EST) [facility] Phosphorus 4.1 2.5 - 4.5 mg/dL 10/02/2024 1:21 AM [facility] Blood VENOUS BLOOD SPECIMEN / Unknown Venipuncture / Unknown 10/02/2024 12:41 AM EST 10/02/2024 12:45 AM EST Hayley Torres MD CHEMISTRY ORDERABLES [facility] [place] [address] * Magnesium (10/02/2024 12:41 AM EST) [facility] Magnesium 0.85 0.69 - 1.07 mMol/L 10/02/2024 1:21 AM [facility] Blood VENOUS BLOOD SPECIMEN / Unknown Venipuncture / Unknown 10/02/2024 12:41 AM EST 10/02/2024 12:45 AM EST Hayley Torres MD CHEMISTRY ORDERABLES [facility] [place] [address] * (ABNORMAL) Basic Metabolic Panel (10/02/2024 12:41 AM EST) [facility] Glucose 113 65 - 199 mg/dL 10/02/2024 1:21 AM [facility] Comment:Glucose Concentratio n >=200 mg/dL plus symptoms is consistent with Diabetes Mellitus. Blood Urea Nitrogen 11 10 - 20 mg/dL 10/02/2024 1:21 AM [facility] Creatinine 0.49(L) 0.80 - 1.50 mg/dL 10/02/2024 1:21 AM [facility] Sodium 138 135 - 145 mMol/L 10/02/2024 1:21 AM EST [facility] Potassium 3.9 3.5 - 5.0 mMol/L 10/02/2024 1:21 AM EST [facility] Chloride 105 98 - 107 mMol/L 10/02/2024 1:21 AM [facility] Carbon Dioxide 23 22 - 31 mMol/L 10/02/2024 1:21 AM [facility] Anion Gap 10 5 - 15 mMol/L 10/02/2024 1:21 AM [facility] Calcium 8.2(L) 8.5 - 10.5 mg/dL 10/02/2024 1:21 AM [facility] Est Glomerular Filtration Rate - Male 125 mL/min/1. 73 m?? 10/02/2024 1:21 AM [facility] Comment: This patient's estimated GFR [...] AM EST Hayley Torres MD CHEMISTRY ORDERABLES [facility] [place] [address] * (ABNORMAL) CBC (with Diff) (10/02/2024 12:41 AM EST) White Blood Cell 10.93(H) 4.00 - 9.50 x10(3)/mc L 10/02/2024 1:04 AM EST [facility] Red Blood Cell 3.30(L) 4.58 - 5.54 x10(6)/mc L 10/02/2024 1:04 AM [facility] Hemoglobin 9.6(L) 13.7 - 16.5 g/dL 10/02/2024 1:04 AM [facility] Hematocrit 28.6(L) 40.5 - 48.5 % 10/02/2024 1:04 AM [facility] Mean Cell Volume 86.7 82.9 - 93.1 fL 10/02/2024 1:04 AM [facility] Mean Cell Hemoglobin 29.1 27.5 - 32.1 pg 10/02/2024 1:04 AM [facility] Mean Cell Hemoglobin Concentration 33.6 32.0 - 35.7 g/dL 10/02/2024 1:04 AM [facility] Platelet 546(H) 145 - 357 x10(3)/mc L 10/02/2024 1:04 AM [facility] Mean Platelet Volume 9.0 7.6 - 12.9 fL 10/02/2024 1:04 AM [facility] RDW Standard Deviation 42.7 36.0 - 45.0 fL 10/02/2024 1:04 AM [facility] RDW coefficient of variation 13.3 11.4 - 13.8 % 10/02/2024 1:04 AM [facility] NRBC% auto 0.0 % 10/02/2024 1:04 AM [facility] NRBC Absolute <0.01 <0.01 x10(3)/mc L 10/02/2024 1:04 AM [facility] Neutrophil % 58.4 % 10/02/2024 1:04 AM [facility] Neutrophil Absolute (ANC) - Automated 6.38(H) 1.70 - 6.10 x10(3)/mc L 10/02/2024 1:04 AM [facility] Lymph % 23.9 % 10/02/2024 1:04 AM [facility] Lymph Absolute 2.61 0.90 - 3.20 x10(3)/mc L 10/02/2024 1:04 AM [facility] Monocyte % 5.6 % 10/02/2024 1:04 AM [facility] Monocyte Absolute 0.61 0.30 - 0.90 x10(3)/mc L 10/02/2024 1:04 AM [facility] Eos % 1.6 % 10/02/2024 1:04 AM [facility] Eos Absolute 0.18 0.00 - 0.40 x10(3)/mc L 10/02/2024 1:04 AM [facility] Basophil % 0.8 % 10/02/2024 1:04 AM [facility] Baso Absolute 0.09 0.00 - 0.10 x10(3)/mc L 10/02/2024 1:04 AM [facility] Immature Gran % 9.7 % 1:04 AM [facility] Immature Gran Absolute 1.06(H) 0.00 - 0.04 x10(3)/mc L 10/02/2024 1:04 AM [facility] Blood VENOUS BLOOD SPECIMEN / Unknown Venipuncture / Unknown 10/02/2024 12:41 AM EST 10/02/2024 12:45 AM EST Hayley Torres MD HEMATOLOGY ORDERABLE S [facility] [place] [address] * POC, GLUCOSE (10/02/2024 12:40 AM EST) [facility] Signature Glucometer, POC 116 65 - 199 mg/dL 10/02/2024 12:41 AM [facility] Comment:Supplemental ranges: <140 mg/dL before meals <180 mg/dL all other times of the day. Blood CAPILLARY BLOOD / Unknown 10/02/2024 12:40 AM EST 10/02/2024 12:41 AM EST Hayley Torres MD POINT OF CARE TEST O GILDA Performing Organization Address City/[facility]/ZIP Co de Phone Number [facility] [place] [address] * POC, GLUCOSE (10/01/2024 8:11 PM EST) Glucometer, POC 123 65 - 199 mg/dL 10/01/2024 8:11 PM EST [facility] Comment:Supplemental ranges: <140 mg/dL before meals <180 mg/dL all other times of the day. Blood CAPILLARY BLOOD / Unknown 10/01/2024 8:11 PM EST 10/01/2024 8:11 PM EST Hayley Torres MD POINT OF CARE TEST O GILDA Performing Organization Address [facility] Co de Phone Number [facility] [place] [address] * POC, GLUCOSE (10/01/2024 6:00 PM EST) Glucometer, POC 112 65 - 199 mg/dL 10/01/2024 6:00 PM EST [facility] Comment:Supplemental ranges: <140 mg/dL before meals <180 mg/dL all other times of the day. Blood CAPILLARY BLOOD / Unknown 10/01/2024 6:00 PM EST 10/01/2024 6:00 PM EST Hayley Torres MD POINT OF CARE TEST O GILDA Performing Organization Address City/[facility]/ZIP Co de Phone Number [facility] [place] [address] * POC, GLUCOSE (10/01/2024 3:53 PM EST) Glucometer, POC 97 65 - 199 mg/dL 10/01/2024 3:53 PM EST [facility] Comment:Supplemental ranges: <140 mg/dL before meals <180 mg/dL all other times of the day. Blood CAPILLARY BLOOD / Unknown 10/01/2024 3:53 PM EST 10/01/2024 3:53 PM EST Hayley Torres MD POINT OF CARE TEST O GILDA Performing Organization Address City/[facility]/ZIP Co de Phone Number [facility] [place] [address] * POC, GLUCOSE (10/01/2024 2:25 PM EST) Glucometer, POC 117 65 - 199 mg/dL 10/01/2024 2:25 PM EST [facility] Comment:Supplemental ranges: <140 mg/dL before meals <180 mg/dL all other times of the day. Blood CAPILLARY BLOOD / Unknown 10/01/2024 2:25 PM EST 10/01/2024 2:25 PM EST Hayley Torres MD POINT OF CARE TEST O GILDA Performing Organization Address [facility] Co de Phone Number [facility] [place] [address] * POC, GLUCOSE (10/01/2024 11:43 AM EST) Glucometer, POC 174 65 - 199 mg/dL 10/01/2024 11:43 AM EST [facility] Comment:Supplemental ranges: <140 mg/dL before meals <180 mg/dL all other times of the day. Blood CAPILLARY BLOOD / Unknown 10/01/2024 11:43 AM EST 10/01/2024 11:43 AM EST Hayley Torres MD POINT OF CARE TEST O GILDA [facility] [place] [address] * POC, GLUCOSE (10/01/2024 9:43 AM EST) Glucometer, POC 191 65 - 199 mg/dL 10/01/2024 9:43 AM EST [facility] Comment:Supplemental ranges: <140 mg/dL before meals <180 mg/dL all other times of the day. Blood CAPILLARY BLOOD / Unknown 10/01/2024 9:43 AM EST 10/01/2024 9:43 AM EST Hayley Torres MD POINT OF CARE TEST O GILDA Performing Organization Address City/[facility] Co de Phone Number [facility] [place] [address] * POC, GLUCOSE (10/01/2024 7:48 AM EST) Glucometer, POC 151 65 - 199 mg/dL 10/01/2024 7:48 AM EST [facility] Comment:Supplemental ranges: <140 mg/dL before meals <180 mg/dL all other times of the day. Blood CAPILLARY BLOOD / Unknown 10/01/2024 7:48 AM EST 10/01/2024 7:48 AM EST Hayley Torres MD POINT OF CARE TEST O GILDA Performing Organization Address [facility] Co de Phone Number [facility] [place] [address] * POC, GLUCOSE (10/01/2024 4:25 AM EST) Glucometer, POC 133 65 - 199 mg/dL 10/01/2024 4:26 AM EST [facility] Comment:Supplemental ranges: <140 mg/dL before meals <180 mg/dL all other times of the day. Blood CAPILLARY BLOOD / Unknown 10/01/2024 4:25 AM EST 10/01/2024 4:26 AM EST Hayley Torres MD POINT OF CARE TEST O GILDA Performing Organization Address City/[facility]/ZIP Co de Phone Number [facility] [place] [address] * Phosphorus (10/01/2024 2:02 AM EST) Pathologist [facility] Phosphorus 3.9 2.5 - 4.5 mg/dL 10/01/2024 7:16 AM EST [facility] Blood VENOUS BLOOD SPECIMEN / Unknown Venipuncture / Unknown 10/01/2024 2:02 AM EST 10/01/2024 2:10 AM EST Hayley Torres MD CHEMISTRY ORDERABLES Performing Organization Address [facility] de Phone Number [facility] [place] [address] * (ABNORMAL) Scan, Peripheral Blood (10/01/2024 2:02 AM EST) [facility] RBC Morphology Abnormal 10/01/2024 2:55 AM EST [facility] Platelet Estimate Increased(A) Normal 10/01 2:55 AM EST [facility] Polychromasia Present 10/01/2024 2:55 AM EST [facility] Platelet Clumps Present(A) (none) 2:55 AM EST [facility] Blood VENOUS BLOOD SPECIMEN / Unknown Venipuncture / Unknown 10/01/2024 2:02 AM EST 10/01/2024 2:10 AM EST Hayley Torres MD HEMATOLOGY ORDERABLE S Performing Organization Address City/[facility] Co de Phone Number [facility] [place] [address] * Magnesium (10/01/2024 2:02 AM EST) [facility] Magnesium 0.79 0.69 - 1.07 mMol/L 10/01/2024 2:41 AM EST [facility] Blood VENOUS BLOOD SPECIMEN / Unknown Venipuncture / Unknown 10/01/2024 2:02 AM EST 10/01/2024 2:10 AM EST Hayley Torres MD CHEMISTRY ORDERABLES [facility] [place] [address] * (ABNORMAL) Basic Metabolic Panel (10/01/2024 2:02 AM EST) Glucose 122 65 - 199 mg/dL 10/01/2024 2:41 AM EST [facility] Comment:Glucose Concentratio n >=200 mg/dL plus symptoms is consistent with Diabetes Mellitus. Blood Urea Nitrogen 10 10 - 20 mg/dL 10/01/2024 2:41 AM [facility] Creatinine 0.47(L) 0.80 - 1.50 mg/dL 10/01/2024 2:41 AM [facility] Sodium 138 135 - 145 mMol/L 10/01/2024 2:41 AM [facility] Potassium 3.9 3.5 - 5.0 mMol/L 10/01/2024 2:41 AM EST [facility] Chloride 105 98 - 107 mMol/L 10/01/2024 2:41 AM [facility] Carbon Dioxide 24 22 - 31 mMol/L 10/01/2024 2:41 AM [facility] Anion Gap 9 5 - 15 mMol/L 10/01/2024 2:41 AM [facility] Calcium 8.1(L) 8.5 - 10.5 mg/dL 10/01/2024 2:41 AM EST [facility] Est Glomerular Filtration Rate - Male 127 mL/min/1. 73 m?? 10/01/2024 2:41 AM [facility] Comment: This patient's estimated GFR [...] AM EST Hayley Torres MD CHEMISTRY ORDERABLES [facility] [place] [address] * (ABNORMAL) CBC (with Diff) (10/01/2024 2:02 AM EST) White Blood Cell 10.15(H) 4.00 - 9.50 x10(3)/mc L 10/01/2024 2:55 AM [facility] Red Blood Cell 3.14(L) 4.58 - 5.54 x10(6)/mc L 10/01/2024 2:55 AM [facility] Hemoglobin 9.1(L) 13.7 - 16.5 g/dL 10/01/2024 2:55 AM [facility] Hematocrit 26.9(L) 40.5 - 48.5 % 10/01/2024 2:55 AM [facility] Mean Cell Volume 85.7 82.9 - 93.1 fL 10/01/2024 2:55 AM [facility] Mean Cell Hemoglobin 29.0 27.5 - 32.1 pg 10/01/2024 2:55 AM [facility] Mean Cell Hemoglobin Concentration 33.8 32.0 - 35.7 g/dL 10/01/2024 2:55 AM [facility] Platelet 444(H) 145 - 357 x10(3)/mc L 10/01/2024 2:55 AM [facility] Mean Platelet Volume 8.9 7.6 - 12.9 fL 10/01/2024 2:55 AM [facility] RDW Standard Deviation 41.2 36.0 - 45.0 fL 10/01/2024 2:55 AM [facility] RDW coefficient of variation 13.2 11.4 - 13.8 % 10/01/2024 2:55 AM [facility] NRBC% auto 0.0 % 10/01/2024 2:55 AM [facility] NRBC Absolute <0.01 <0.01 x10(3)/mc L 10/01/2024 2:55 AM [facility] Neutrophil % 59.5 % 10/01/2024 2:55 AM [facility] Comment:This is an appended report. These results have been appended to a previously preliminary verified report. Neutrophil Absolute (ANC) - Automated 6.05 1.70 - 6.10 x10(3)/mc L 10/01/2024 2:55 AM [facility] Comment:This is an appended report. These results have been appended to a previously preliminary verified report. Lymph % 22.3 % 10/01/2024 2:55 AM [facility] Comment:This is an appended report. These results have been appended to a previously preliminary verified report. Lymph Absolute 2.26 0.90 - 3.20 x10(3)/mc L 10/01/2024 2:55 AM [facility] Comment:This is an appended report. These results have been appended to a previously preliminary verified report. Monocyte % 7.4 % 10/01/2024 2:55 AM [facility] Comment:This is an appended report. These results have been appended to a previously preliminary verified report. Monocyte Absolute 0.75 0.30 - 0.90 x10(3)/mc L 10/01/2024 2:55 AM [facility] Comment:This is an appended report. These results have been appended to a previously preliminary verified report. Eos % 1.8 % 10/01/2024 2:55 AM [facility] Comment:This is an appended report. These results have been appended to a previously preliminary verified report. Eos Absolute 0.18 0.00 - 0.40 x10(3)/mc L 10/01/2024 2:55 AM EST [facility] Comment:This is an appended report. These results have been appended to a previously preliminary verified report. Basophil % 0.6 % 10/01/2024 2:55 AM [facility] Comment:This is an appended report. These results have been appended to a previously preliminary verified report. Baso Absolute 0.06 0.00 - 0.10 x10(3)/mc L 10/01/2024 2:55 AM EST [facility] Comment:This is an appended report. These results have been appended to a previously preliminary verified report. Immature Gran % 8.4 % 2:55 AM [facility] Comment:This is an appended report. These results have been appended to a previously preliminary verified report. Immature Gran Absolute 0.85(H) 0.00 - 0.04 x10(3)/mc L 10/01/2024 2:55 AM [facility] Comment:This is an appended report. These results have been appended to a previously preliminary verified report. Blood VENOUS BLOOD SPECIMEN / Unknown Venipuncture / Unknown 10/01/2024 2:02 AM EST 10/01/2024 2:10 AM EST Hayley Torres MD HEMATOLOGY ORDERABLE S [facility] [place] [address] * POC, GLUCOSE (10/01/2024 12:32 AM EST) Glucometer, POC 179 65 - 199 mg/dL 10/01/2024 12:32 AM [facility] Comment:Supplemental ranges: <140 mg/dL before meals <180 mg/dL all other times of the day. Blood CAPILLARY BLOOD / Unknown 10/01/2024 12:32 AM EST 10/01/2024 12:32 AM EST Hayley Torres MD POINT OF CARE TEST O RDERAHERNANDEZ Performing Organization Address [facility] Co de Phone Number [facility] [place] [address] * POC, GLUCOSE (09/30/2024 7:37 PM EST) Glucometer, POC 140 65 - 199 mg/dL 09/30/2024 7:38 PM EST [facility] Comment:Supplemental ranges: <140 mg/dL before meals <180 mg/dL all other times of the day. Blood CAPILLARY BLOOD / Unknown 09/30/2024 7:37 PM EST 09/30/2024 7:38 PM EST Hayley Torres MD POINT OF CARE TEST O GILDA Performing Organization Address [facility] de Phone Number [facility] [place] [address] * POC, GLUCOSE (09/30/2024 4:29 PM EST) Glucometer, POC 126 65 - 199 mg/dL 09/30/2024 4:30 PM EST [facility] Comment:Supplemental ranges: <140 mg/dL before meals <180 mg/dL all other times of the day. Blood CAPILLARY BLOOD / Unknown 09/30/2024 4:29 PM EST 09/30/2024 4:30 PM EST Hayley Torres MD POINT OF CARE TEST O GILDA Performing Organization Address [facility] Co de Phone Number [facility] [place] [address] * POC, GLUCOSE (09/30/2024 12:16 PM EST) Glucometer, POC 107 65 - 199 mg/dL 09/30/2024 12:16 PM EST [facility] Comment:Supplemental ranges: <140 mg/dL before meals <180 mg/dL all other times of the day. Blood CAPILLARY BLOOD / Unknown 09/30/2024 12:16 PM EST 09/30/2024 12:16 PM EST Hayley Torres MD POINT OF CARE TEST O GILDA Performing Organization Address [facility] de Phone Number [facility] [place] [address] * POC, GLUCOSE (09/30/2024 7:58 AM EST) Glucometer, POC 92 65 - 199 mg/dL 09/30/2024 7:58 AM EST [facility] Comment:Supplemental ranges: <140 mg/dL before meals <180 mg/dL all other times of the day. Blood CAPILLARY BLOOD / Unknown 09/30/2024 7:58 AM EST 09/30/2024 7:58 AM EST Hayley Torres MD POINT OF CARE TEST O GILDA Performing Organization Address [facility] de Phone Number [facility] [place] [address] * Potassium (09/30/2024 6:27 AM EST) Potassium 3.9 3.5 - 5.0 mMol/L 09/30/2024 7:10 AM EST [facility] Blood VENOUS BLOOD SPECIMEN / Unknown Venipuncture / Unknown 09/30/2024 6:27 AM EST 09/30/2024 6:35 AM EST Hayley Torres MD CHEMISTRY ORDERABLES Performing Organization Address City/[facility] Co de Phone Number [facility] [place] [address] * Vancomycin, trough (09/30/2024 6:27 AM EST) Vancomycin, Trough 14.1 10.0 - 20.0 mg/L 09/30/2024 7:10 AM EST [facility] Comment: Varies according to infection source. Blood VENOUS BLOOD SPECIMEN / Unknown Venipuncture / Unknown 09/30/2024 6:27 AM EST 09/30/2024 6:35 AM EST Hayley Torres MD CHEMISTRY ORDERABLES Performing Organization Address [facility] Co de Phone Number [facility] [place] [address] * POC, GLUCOSE (09/30/2024 3:51 AM EST) Glucometer, POC 134 65 - 199 mg/dL 09/30/2024 3:51 AM EST [facility] Comment:Supplemental ranges: <140 mg/dL before meals <180 mg/dL all other times of the day. Blood CAPILLARY BLOOD / Unknown 09/30/2024 3:51 AM EST 09/30/2024 3:51 AM EST Hayley Torres MD POINT OF CARE TEST O RDERABLES Performing Organization Address [facility] Co de Phone Number [facility] [place] [address] * Magnesium (09/29/2024 11:52 PM EST) Magnesium 0.85 0.69 - 1.07 mMol/L 09/30/2024 12:25 AM EST [facility] Blood VENOUS BLOOD SPECIMEN / Unknown Venipuncture / Unknown 09/29/2024 11:52 PM EST 09/29/2024 11:58 PM EST Hayley Torres MD CHEMISTRY ORDERABLES Performing Organization Address City/[facility] Co de Phone Number [facility] [place] [address] * (ABNORMAL) Basic Metabolic Panel (09/29/2024 11:52 PM EST) Glucose 133 65 - 199 mg/dL 09/30/2024 12:51 AM EST [facility] Comment:Glucose Concentratio n >=200 mg/dL plus symptoms is consistent with Diabetes Mellitus. Blood Urea Nitrogen 9(L) 10 - 20 mg/dL 09/30/2024 12:51 AM [facility] Creatinine 0.48(L) 0.80 - 1.50 mg/dL 09/30/2024 12:51 AM [facility] Sodium 138 135 - 145 mMol/L 09/30/2024 12:51 AM [facility] Potassium 3.4(L) 3.5 - 5.0 mMol/L 09/30/2024 12:51 AM [facility] Chloride 103 98 - 107 mMol/L 09/30/2024 12:51 AM [facility] Carbon Dioxide 24 22 - 31 mMol/L 09/30/2024 12:51 AM [facility] Anion Gap 11 5 - 15 mMol/L 09/30/2024 12:51 AM [facility] Calcium 8.1(L) 8.5 - 10.5 mg/dL 09/30/2024 12:51 AM [facility] Est Glomerular Filtration Rate - Male 126 mL/min/1. 73 m?? 09/30/2024 12:51 AM [facility] Comment: This patient's estimated GFR [...] PM EST Hayley Torres MD CHEMISTRY ORDERABLES [facility] [place] [address] * (ABNORMAL) CBC (with Diff) (09/29/2024 11:52 PM EST) White Blood Cell 9.54(H) 4.00 - 9.50 x10(3)/mc L 09/30/2024 12:02 AM [facility] Red Blood Cell 3.04(L) 4.58 - 5.54 x10(6)/mc L 09/30/2024 12:02 AM [facility] Hemoglobin 8.7(L) 13.7 - 16.5 g/dL 09/30/2024 12:02 AM [facility] Hematocrit 25.8(L) 40.5 - 48.5 % 09/30/2024 12:02 AM [facility] Mean Cell Volume 84.9 82.9 - 93.1 fL 09/30/2024 12:02 AM [facility] Mean Cell Hemoglobin 28.6 27.5 - 32.1 pg 09/30/2024 12:02 AM [facility] Mean Cell Hemoglobin Concentration 33.7 32.0 - 35.7 g/dL 09/30/2024 12:02 AM [facility] Platelet 411(H) 145 - 357 x10(3)/mc L 09/30/2024 12:02 AM [facility] Mean Platelet Volume 8.8 7.6 - 12.9 fL 09/30/2024 12:02 AM [facility] RDW Standard Deviation 41.4 36.0 - 45.0 fL 09/30/2024 12:02 AM [facility] RDW coefficient of variation 13.4 11.4 - 13.8 % 09/30/2024 12:02 AM [facility] NRBC% auto 0.0 % 09/30/2024 12:02 AM [facility] NRBC Absolute <0.01 <0.01 x10(3)/mc L 09/30/2024 12:02 AM [facility] Neutrophil % 64.5 % 09/30/2024 12:02 AM [facility] Neutrophil Absolute (ANC) - Automated 6.16(H) 1.70 - 6.10 x10(3)/mc L 09/30/2024 12:02 AM [facility] Lymph % 23.1 % 09/30/2024 12:02 AM [facility] Lymph Absolute 2.20 0.90 - 3.20 x10(3)/mc L 09/30/2024 12:02 AM [facility] Monocyte % 8.0 % 09/30/2024 12:02 AM [facility] Monocyte Absolute 0.76 0.30 - 0.90 x10(3)/mc L 09/30/2024 12:02 AM [facility] Eos % 1.5 % 09/30/2024 12:02 AM [facility] Eos Absolute 0.14 0.00 - 0.40 x10(3)/mc L 09/30/2024 12:02 AM [facility] Basophil % 0.3 % 09/30/2024 12:02 AM [facility] Baso Absolute <0.04 0.00 - 0.10 x10(3)/mc L 09/30/2024 12:02 AM [facility] Immature Gran % 2.6 % 12:02 AM [facility] [facility] Immature Gran Absolute 0.25(H) 0.00 - 0.04 x10(3)/mc L 09/30/2024 12:02 AM [facility] Blood VENOUS BLOOD SPECIMEN / Unknown Venipuncture / Unknown 09/29/2024 11:52 PM EST 09/29/2024 11:58 PM EST Hayley Torres MD HEMATOLOGY ORDERABLE S [facility] [place] [address] * POC, GLUCOSE (09/29/2024 11:51 PM EST) Glucometer, POC 134 65 - 199 mg/dL 09/29/2024 11:51 PM EST [facility] Comment:Supplemental ranges: <140 mg/dL before meals <180 mg/dL all other times of the day. Blood CAPILLARY BLOOD / Unknown 09/29/2024 11:51 PM EST 09/29/2024 11:51 PM EST Hayley Torres MD POINT OF CARE TEST O RDERABLES Performing Organization Address City/[facility]/ZIP Co de Phone Number [facility] [place] [address] * Blood culture (09/29/2024 9:24 PM EST) Blood Culture No growth at 120 hours 10/04/2024 11:01 PM EST [facility] Blood VENOUS BLOOD SPECIMEN / Unknown Venipuncture / Unknown 09/29/2024 9:24 PM EST 09/29/2024 9:34 PM EST Hayley Torres MD MICROBIOLOGY - BLOOD ORDERABLES Performing Organization Address City/[facility]/ZIP Co de Phone Number [facility] [place] [address] * Blood culture (09/29/2024 9:24 PM EST) Blood Culture No growth at 120 hours 10/04/2024 11:01 PM EST [facility] Blood VENOUS BLOOD SPECIMEN / Unknown Venipuncture / Unknown 09/29/2024 9:24 PM EST 09/29/2024 9:34 PM EST Marko Dickson MD MICROBIOLOGY - BLOOD ORDERABLES Performing Organization Address City/[facility]/ZIP Co de Phone Number [facility] [place] [address] * (ABNORMAL) POC, GLUCOSE (09/29/2024 7:35 PM EST) Glucometer, POC 202(H) 65 - 199 mg/dL 09/29/2024 7:36 PM EST [facility] Comment:Supplemental ranges: <140 mg/dL before meals <180 mg/dL all other times of the day. Blood CAPILLARY BLOOD / Unknown 09/29/2024 7:35 PM EST 09/29/2024 7:36 PM EST Hayley Torres MD POINT OF CARE TEST O RDERAHERNANDEZ Performing Organization Address City/[facility]/ZIP Co de Phone Number [facility] [place] [address] * POC, GLUCOSE (09/29/2024 6:48 PM EST) Glucometer, POC 161 65 - 199 mg/dL 09/29/2024 6:48 PM EST [facility] Comment:Supplemental ranges: <140 mg/dL before meals <180 mg/dL all other times of the day. Blood CAPILLARY BLOOD / Unknown 09/29/2024 6:48 PM EST 09/29/2024 6:49 PM EST Hayley Torres MD POINT OF CARE TEST O GILDA Performing Organization Address [facility] Co de Phone Number [facility] [place] [address] * POC, GLUCOSE (09/29/2024 4:06 PM EST) Glucometer, POC 122 65 - 199 mg/dL 09/29/2024 4:06 PM EST [facility] Comment:Supplemental ranges: <140 mg/dL before meals <180 mg/dL all other times of the day. Blood CAPILLARY BLOOD / Unknown 09/29/2024 4:06 PM EST 09/29/2024 4:06 PM EST Hayley Torres MD POINT OF CARE TEST O GILDA Performing Organization Address City/[facility]/ZIP Co de Phone Number [facility] [place] [address] * POC, GLUCOSE (09/29/2024 11:49 AM EST) Glucometer, POC 135 65 - 199 mg/dL 09/29/2024 11:49 AM EST [facility] Comment:Supplemental ranges: <140 mg/dL before meals <180 mg/dL all other times of the day. Blood CAPILLARY BLOOD / Unknown 09/29/2024 11:49 AM EST 09/29/2024 11:50 AM EST Hayley Torres MD POINT OF CARE TEST O GILDA [facility] [place] [address] * (ABNORMAL) POC, GLUCOSE (09/29/2024 7:53 AM EST) Glucometer, POC 202(H) 65 - 199 mg/dL 09/29/2024 7:53 AM EST [facility] Comment:Supplemental ranges: <140 mg/dL before meals <180 mg/dL all other times of the day. Blood CAPILLARY BLOOD / Unknown 09/29/2024 7:53 AM EST 09/29/2024 7:53 AM EST Hayley Torres MD POINT OF CARE TEST O GILDA [facility] [place] [address] * POC, GLUCOSE (09/29/2024 3:45 AM EST) Glucometer, POC 184 65 - 199 mg/dL 09/29/2024 3:46 AM EST [facility] Comment:Supplemental ranges: <140 mg/dL before meals <180 mg/dL all other times of the day. Blood CAPILLARY BLOOD / Unknown 09/29/2024 3:45 AM EST 09/29/2024 3:46 AM EST Hayley Torres MD POINT OF CARE TEST O RDERABLES Performing Organization Address City/[facility]/ZIP Co de Phone Number [facility] [place] [address] * (ABNORMAL) Hemoglobin A1c (09/28/2024 11:51 PM EST) Hemoglobin A1c 9.7(H) 4.3 - 5.6 % 09/29/2024 9:54 AM EST [facility] Comment: Per ADA guidelines, [...] red blood cell turnover may not be footwear sales representative of glycemic control. Reference Interval: 4.3 - 5.6% 5.7 - 6.4%: Consistent with prediabetes >=6.5%: Consistent with diagnosis of diabetes mellitus Estimated Average Glucose 232 mg/dL 09/29/2024 9:54 AM EST [facility] Blood VENOUS BLOOD SPECIMEN / Unknown Venipuncture / Unknown 09/28/2024 11:51 PM EST 09/28/2024 11:56 PM EST Hayley Torres MD CHEMISTRY ORDERABLES Performing Organization Address [facility] Co de Phone Number [facility] [place] [address] * Magnesium (09/28/2024 11:51 PM EST) Magnesium 0.72 0.69 - 1.07 mMol/L 09/29/2024 12:27 AM EST [facility] Blood VENOUS BLOOD SPECIMEN / Unknown Venipuncture / Unknown 09/28/2024 11:51 PM EST 09/28/2024 11:57 PM EST Hayley Torres MD CHEMISTRY ORDERABLES [facility] [place] [address] * (ABNORMAL) Basic Metabolic Panel (09/28/2024 11:51 PM EST) Glucose 204(H) 65 - 199 mg/dL 09/29/2024 12:40 AM [facility] Comment:Glucose Concentratio n >=200 mg/dL plus symptoms is consistent with Diabetes Mellitus. Blood Urea Nitrogen 6(L) 10 - 20 mg/dL 09/29/2024 12:40 AM [facility] Creatinine 0.52(L) 0.80 - 1.50 mg/dL 09/29/2024 12:40 AM [facility] Sodium 137 135 - 145 mMol/L 09/29/2024 12:40 AM [facility] Potassium 3.2(L) 3.5 - 5.0 mMol/L 09/29/2024 12:40 AM [facility] Chloride 105 98 - 107 mMol/L 09/29/2024 12:40 AM [facility] Carbon Dioxide 21(L) 22 - 31 mMol/L 09/29/2024 12:40 AM [facility] Anion Gap 11 5 - 15 mMol/L 09/29/2024 12:40 AM [facility] Calcium 6.7(LLL) 8.5 - 10.5 mg/dL 09/29/2024 12:40 AM [facility] Est Glomerular Filtration Rate - Male 123 mL/min/1. 73 m?? 09/29/2024 12:40 AM [facility] Comment: This patient's estimated GFR [...] PM EST Hayley Torres MD CHEMISTRY ORDERABLES [facility] [place] [address] * (ABNORMAL) CBC (with Diff) (09/28/2024 11:51 PM EST) White Blood Cell 12.76(H) 4.00 - 9.50 x10(3)/mc L 09/29/2024 12:00 AM [facility] Red Blood Cell 2.90(L) 4.58 - 5.54 x10(6)/mc L 09/29/2024 12:00 AM [facility] Hemoglobin 8.5(L) 13.7 - 16.5 g/dL 09/29/2024 12:00 AM [facility] Hematocrit 24.7(L) 40.5 - 48.5 % 09/29/2024 12:00 AM [facility] Mean Cell Volume 85.2 82.9 - 93.1 fL 09/29/2024 12:00 AM [facility] Mean Cell Hemoglobin 29.3 27.5 - 32.1 pg 09/29/2024 12:00 AM [facility] Mean Cell Hemoglobin Concentration 34.4 32.0 - 35.7 g/dL 09/29/2024 12:00 AM [facility] Platelet 331 145 - 357 x10(3)/mc L 09/29/2024 12:00 AM [facility] Mean Platelet Volume 9.2 7.6 - 12.9 fL 09/29/2024 12:00 AM [facility] RDW Standard Deviation 40.4 36.0 - 45.0 fL 09/29/2024 12:00 AM [facility] RDW coefficient of variation 13.1 11.4 - 13.8 % 09/29/2024 12:00 AM [facility] NRBC% auto 0.0 % 09/29/2024 12:00 AM [facility] NRBC Absolute <0.01 <0.01 x10(3)/mc L 09/29/2024 12:00 AM [facility] Neutrophil % 86.7 % 09/29/2024 12:00 AM [facility] Neutrophil Absolute (ANC) - Automated 11.06(H) 1.70 - 6.10 x10(3)/mc L 09/29/2024 12:00 AM [facility] Lymph % 7.7 % 09/29/2024 12:00 AM [facility] Lymph Absolute 0.98 0.90 - 3.20 x10(3)/mc L 09/29/2024 12:00 AM [facility] Monocyte % 4.0 % 09/29/2024 12:00 AM [facility] Monocyte Absolute 0.51 0.30 - 0.90 x10(3)/mc L 09/29/2024 12:00 AM [facility] Eos % 0.0 % 09/29/2024 12:00 AM [facility] Eos Absolute <0.04 0.00 - 0.40 x10(3)/mc L 09/29/2024 12:00 AM [facility] Basophil % 0.2 % 09/29/2024 12:00 AM [facility] Baso Absolute <0.04 0.00 - 0.10 x10(3)/mc L 09/29/2024 12:00 AM [facility] Immature Gran % 1.4 % 12:00 AM [facility] Immature Gran Absolute 0.18(H) 0.00 - 0.04 x10(3)/mc L 09/29/2024 12:00 AM EST [facility] Blood VENOUS BLOOD SPECIMEN / Unknown Venipuncture / Unknown 09/28/2024 11:51 PM EST 09/28/2024 11:56 PM EST Hayley Torres MD HEMATOLOGY ORDERABLE S Performing Organization Address City/[facility]/ZIP Co de Phone Number [facility] [place] [address] * (ABNORMAL) POC, GLUCOSE (09/28/2024 11:45 PM EST) Glucometer, POC 238(H) 65 - 199 mg/dL 09/28/2024 11:45 PM EST [facility] Comment:Supplemental ranges: <140 mg/dL before meals <180 mg/dL all other times of the day. Blood CAPILLARY BLOOD / Unknown 09/28/2024 11:45 PM EST 09/28/2024 11:45 PM EST Hayley Torres MD POINT OF CARE TEST O GILDA Performing Organization Address City/[facility]/ZIP Co de Phone Number [facility] [place] [address] * (ABNORMAL) POC, GLUCOSE (09/28/2024 10:00 PM EST) Glucometer, POC 287(H) 65 - 199 mg/dL 09/28/2024 10:00 PM EST [facility] Comment:Supplemental ranges: <140 mg/dL before meals <180 mg/dL all other times of the day. Blood CAPILLARY BLOOD / Unknown 09/28/2024 10:00 PM EST 09/28/2024 10:00 PM EST Hayley Torres MD POINT OF CARE TEST O GILDA [facility] [place] [address] * (ABNORMAL) POC, GLUCOSE (09/28/2024 7:51 PM EST) Glucometer, POC 243(H) 65 - 199 mg/dL 09/28/2024 7:52 PM EST [facility] Comment:Supplemental ranges: <140 mg/dL before meals <180 mg/dL all other times of the day. Blood CAPILLARY BLOOD / Unknown 09/28/2024 7:51 PM EST 09/28/2024 7:52 PM EST Hayley Torres MD POINT OF CARE TEST O GILDA Performing Organization Address City/[facility]/ZIP Co de Phone Number [facility] [place] [address] * Blood culture (09/28/2024 5:49 PM EST) Blood Culture No growth at 120 hours 10/03/2024 7:01 PM EST [facility] Blood VENOUS BLOOD SPECIMEN / Unknown Venipuncture / Unknown 09/28/2024 5:49 PM EST 09/28/2024 5:53 PM EST Marko Dickson MD MICROBIOLOGY - BLOOD ORDERABLES Performing Organization Address [facility] Co de Phone Number [facility] [place] [address] * (ABNORMAL) POC, GLUCOSE (09/28/2024 4:42 PM EST) Glucometer, POC 203(H) 65 - 199 mg/dL 09/28/2024 4:42 PM EST [facility] Comment:Supplemental ranges: <140 mg/dL before meals <180 mg/dL all other times of the day. Blood CAPILLARY BLOOD / Unknown 09/28/2024 4:42 PM EST 09/28/2024 4:42 PM EST Hayley Torres MD POINT OF CARE TEST O GILDA Performing Organization Address City/[facility]/ZIP Co de Phone Number [facility] [place] [address] * (ABNORMAL) Blood Gas, Arterial POC (09/28/2024 3:16 PM [facility] [[email or web address] pH, Arterial 7.42 7.35 - 7.45 09/28/2024 3:17 PM [facility] PCO2, Arterial 39 35 - 45 mmHg 09/28/2024 3:17 PM [facility] PO2, Arterial 103 85 - 104 mmHg 09/28/2024 3:17 PM [facility] Bicarbonate, Arterial 24.8 20.0 - 26.0 mmol/L 09/28/2024 3:17 PM [facility] Base Excess, Arterial 0.2 -3.0 - 3.0 mmol/L 09/28/2024 3:17 PM [facility] Hemoglobin, Arterial 10.9(L) 13.7 - 16.5 g/dL 09/28/2024 3:17 PM [facility] Oxyhemoglobin, Arterial 97.1(H) 94.0 - 97.0 % 09/28/2024 3:17 PM [facility] Carboxyhemoglobin , Arterial 0.1 % 09/28/2024 3:17 PM [facility] Comment: Nonsmokers: 0.5-1.5% COHB ?? Smokers: Variable ??but usually less than 10% ?? Toxic: 20-30% COHB ?? Lethal: Greater than 60% COHB Methemoglobin, Arterial 0.2 <=1.5 % 09/28/2024 3:17 PM [facility] Sodium, Arterial 131(L) 135 - 145 mmol/L 09/28/2024 3:17 PM [facility] Potassium, Arterial 3.8 3.5 - 5.0 mmol/L 09/28/2024 3:17 PM [facility] Chloride, Arterial 99 98 - 107 mmol/L 09/28/2024 3:17 PM [facility] Lactate, Arterial 1.1 0.5 - 2.2 mmol/L 09/28/2024 3:17 PM EST [facility] IONIZED CALCIUM, ARTERIAL 1.08(L) 1.15 - 1.33 mmol/L 09/28/2024 3:17 PM EST [facility] Glucose, Arterial 163 65 - 199 mg/dL 09/28/2024 3:17 PM EST [facility] Comment:Glucose Concentratio n >=200 mg/dL plus symptoms is consistent with Diabetes Mellitus. Blood ARTERIAL BLOOD / Unknown 09/28/2024 3:16 PM EST 09/28/2024 3:17 PM EST Hayley Torres MD POINT OF CARE TEST O RDERABLES [facility] [place] [address] * Surgical Pathology (09/28/2024 2:10 PM EST) Case Report Surgical Pathology Report ? Case: [id number] ? Authorizing Provider: ??Hayley Torres MD ? Collected: ? 09/28/2024 1410 ? Ordering Location: ? Main Operating Room [facility] ?? Received: ?09/28/2024 1644 ? [facility] ? [facility] ? Pathologist: ? Aziza Packer MD ? Specimens: ?? A) - Leg, Left, Left femoral proximal graft ? B) - Leg, Left, Left distal BK pop graft ? 10/02/2024 8:17 AM [facility] Final Diagnosis A. Graft, left leg, femoral proximal, excision: - Gross surgical pathology examination. B. Graft, left leg, distal BK pop, excision: - Gross surgical pathology examination. 10/02/2024 8:17 AM [facility] Clinical Information A. Leg, Left, Left femoral proximal graft Left femoral proximal graft B. Leg, Left, Left distal BK pop graft Left distal BK pop graft 10/02/2024 8:17 AM [facility] Gross Description A. Leg, Left, [...] diagnosis only sns 10/02/2024 8:17 AM EST [facility] Result Note Routine 10/02/2024 8:17 AM EST [facility] Machine Packer STRUCTURE OF LEFT LOWER LIMB / Unknown 09/28/2024 2:10 PM EST 09/28/2024 4:44 PM EST Comment:Left femoral proxima l graft Biomedical device (physical object) STRUCTURE OF LEFT LOWER LIMB / Unknown 09/28/2024 2:17 PM EST 09/28/2024 4:44 PM EST Comment:Left distal BK pop g raft Hayley Torres MD PATHOLOGY/CYTOLOGY O RDERABLES [facility] [place] [address] * Potassium (09/28/2024 10:45 AM EST) [facility] Potassium 4.6 3.5 - 5.0 mMol/L 09/28/2024 12:26 PM EST [facility] Blood VENOUS BLOOD SPECIMEN / Unknown Venipuncture / Unknown 09/28/2024 10:45 AM EST 09/28/2024 10:53 AM EST Marko Dickson MD CHEMISTRY ORDERABLES [facility] [place] [address] * POC, GLUCOSE (09/28/2024 7:57 AM EST) Glucometer, POC 192 65 - 199 mg/dL 09/28/2024 7:57 AM EST [facility] Comment:Supplemental ranges: <140 mg/dL before meals <180 mg/dL all other times of the day. Blood CAPILLARY BLOOD / Unknown 09/28/2024 7:57 AM EST 09/28/2024 7:57 AM EST Marko Dickson MD POINT OF CARE TEST O RDERABLES [facility] [place] [address] * ELEN, legs, multiple levels (09/28/2024 7:44 AM EST) VB Text Report Department: Vascular Surgery Lab Patient: [id number] (GEOVANNA DIXON) CPT: 66562 Referring Physician: HERMILA SNIDER ?? Phone: Indications: [...] EST Narrative 09/28/2024 9:15 AM EST [address] [place] [address] ? Echocardiogram Report Name: GEOVANNA DIXON JR ?Study Date: 09/28/2024 06:56 AMBP: 132/75 mmHg ? Patient Location: ^[facility]08^A : 1975 ? Height: 179 cm ? Account: [id number] Age: 49 yrs ? Weight: 108 kg Gender: Male ?BSA: 2.3 m2 Ordering Physician: Marko Dickson MD Referring Physician: PATRIC GILES Performed By: Faiza Cole Reason For Study: Vascular graft infection, initial encounter; MRSA bacteremia Interpreting Fellow: Jame Lares. Exam Location: [facility]. Interpretation Summary -Limited study performed for [...] 05/29/2024, no significant changes. Procedure Limited - 20277. Doppler - 97021. Color Doppler - 87976. Suboptimal quality. This study is limited because [...] Note David Lomeli MD - 09/28/2024 [address] [place] [address] Echocardiogram Report Name: GEOVANNA DIXON, JR Study Date: 406:56 AMBP: 132/75 mmHg Patient Location:[facility]^A : 1975 Height: 179 cm Account: [id number] Age: 49 yrs Weight: 108 kg Gender: Male BSA: 2.3 m2 Ordering Physician: Marko Dickson MD Referring Physician: PATRIC GILES Performed By: Faiza Cole Reason For Study: Vascular graft infection, initial encounter; MRSAbacteremia Interpreting Fellow: Jame Lares. Exam Location: [facility]. Interpretation Summary -Limited study performed for [...] 05/29/2024, no significant changes. Procedure Limited - 49925. Doppler - 81098. Color Doppler - 73374. Suboptimalquality. This study is limited because of [...] - 20.0 mg/L 09/28/2024 7:21 AM EST [facility] Comment: Varies according to infection source. Blood VENOUS BLOOD SPECIMEN / Unknown Venipuncture / Unknown 09/28/2024 6:44 AM EST 09/28/2024 6:49 AM EST Marko Dickson MD CHEMISTRY ORDERABLES Performing Organization Address City/[facility]/ZIP Co de Phone Number [facility] [place] [address] * (ABNORMAL) Potassium (09/28/2024 4:55 AM EST) Potassium 2.9(LLL) 3.5 - 5.0 mMol/L 09/28/2024 5:31 AM EST [facility] Blood VENOUS BLOOD SPECIMEN / Unknown Venipuncture / Unknown 09/28/2024 4:55 AM EST 09/28/2024 5:01 AM EST Marko Dickson MD CHEMISTRY ORDERABLES Performing Organization Address [facility] Co de Phone Number [facility] [place] [address] * (ABNORMAL) POC, GLUCOSE (09/28/2024 3:54 AM EST) Glucometer, POC 229(H) 65 - 199 mg/dL 09/28/2024 3:54 AM EST [facility] Comment:Supplemental ranges: <140 mg/dL before meals <180 mg/dL all other times of the day. Blood CAPILLARY BLOOD / Unknown 09/28/2024 3:54 AM EST 09/28/2024 3:54 AM EST Marko Dickson MD POINT OF CARE TEST O RDERABLES Performing Organization Address City/[facility]/ZIP Co de Phone Number [facility] [place] [address] * Magnesium (09/27/2024 11:58 PM EST) Magnesium 0.77 0.69 - 1.07 mMol/L 09/28/2024 12:38 AM EST [facility] Blood VENOUS BLOOD SPECIMEN / Unknown Venipuncture / Unknown 09/27/2024 11:58 PM EST 09/28/2024 12:10 AM EST Hayley Torres MD CHEMISTRY ORDERABLES [facility] [place] [address] * (ABNORMAL) Basic Metabolic Panel (09/27/2024 11:58 PM EST) Glucose 246(H) 65 - 199 mg/dL 09/28/2024 12:38 AM [facility] Comment:Glucose Concentratio n >=200 mg/dL plus symptoms is consistent with Diabetes Mellitus. Blood Urea Nitrogen 5(L) 10 - 20 mg/dL 09/28/2024 12:38 AM [facility] Creatinine 0.48(L) 0.80 - 1.50 mg/dL 09/28/2024 12:38 AM [facility] Sodium 131(L) 135 - 145 mMol/L 09/28/2024 12:38 AM [facility] Potassium 3.2(L) 3.5 - 5.0 mMol/L 09/28/2024 12:38 AM [facility] Chloride 95(L) 98 - 107 mMol/L 09/28/2024 12:38 AM [facility] Carbon Dioxide 23 22 - 31 mMol/L 09/28/2024 12:38 AM [facility] Anion Gap 13 5 - 15 mMol/L 09/28/2024 12:38 AM [facility] Calcium 8.1(L) 8.5 - 10.5 mg/dL 09/28/2024 12:38 AM [facility] Est Glomerular Filtration Rate - Male 126 mL/min/1. 73 m?? 09/28/2024 12:38 AM [facility] Comment: This patient's estimated GFR [...] AM EST Hayley Torres MD CHEMISTRY ORDERABLES [facility] [place] [address] * (ABNORMAL) CBC (with Diff) (09/27/2024 11:58 PM EST) White Blood Cell 17.15(H) 4.00 - 9.50 x10(3)/mc L 09/28/2024 12:14 AM [facility] Red Blood Cell 3.64(L) 4.58 - 5.54 x10(6)/mc L 09/28/2024 12:14 AM [facility] Hemoglobin 10.4(L) 13.7 - 16.5 g/dL 09/28/2024 12:14 AM [facility] Hematocrit 30.5(L) 40.5 - 48.5 % 09/28/2024 12:14 AM [facility] Mean Cell Volume 83.8 82.9 - 93.1 fL 09/28/2024 12:14 AM [facility] Mean Cell Hemoglobin 28.6 27.5 - 32.1 pg 09/28/2024 12:14 AM [facility] Mean Cell Hemoglobin Concentration 34.1 32.0 - 35.7 g/dL 09/28/2024 12:14 AM [facility] Platelet 316 145 - 357 x10(3)/mc L 09/28/2024 12:14 AM [facility] Mean Platelet Volume 9.4 7.6 - 12.9 fL 09/28/2024 12:14 AM [facility] RDW Standard Deviation 39.4 36.0 - 45.0 fL 09/28/2024 12:14 AM [facility] RDW coefficient of variation 12.8 11.4 - 13.8 % 09/28/2024 12:14 AM [facility] NRBC% auto 0.0 % 09/28/2024 12:14 AM [facility] NRBC Absolute <0.01 <0.01 x10(3)/mc L 09/28/2024 12:14 AM [facility] Neutrophil % 81.2 % 09/28/2024 12:14 AM [facility] Neutrophil Absolute (ANC) - Automated 13.93(H) 1.70 - 6.10 x10(3)/mc L 09/28/2024 12:14 AM [facility] Lymph % 10.5 % 09/28/2024 12:14 AM [facility] Lymph Absolute 1.80 0.90 - 3.20 x10(3)/mc L 09/28/2024 12:14 AM [facility] Monocyte % 5.7 % 09/28/2024 12:14 AM [facility] Monocyte Absolute 0.98(H) 0.30 - 0.90 x10(3)/mc L 09/28/2024 12:14 AM [facility] Eos % 0.7 % 09/28/2024 12:14 AM [facility] Eos Absolute 0.12 0.00 - 0.40 x10(3)/mc L 09/28/2024 12:14 AM [facility] Basophil % 0.5 % 09/28/2024 12:14 AM [facility] Baso Absolute 0.08 0.00 - 0.10 x10(3)/mc L 09/28/2024 12:14 AM [facility] Immature Gran % 1.4 % 11/21/202 4 12:14 AM EST [facility] Immature Gran Absolute 0.24(H) 0.00 - 0.04 x10(3)/mc L 09/28/2024 12:14 AM EST [facility] Blood VENOUS BLOOD SPECIMEN / Unknown Venipuncture / Unknown 09/27/2024 11:58 PM EST 09/28/2024 12:10 AM EST Hayley Torres MD HEMATOLOGY ORDERABLE S [facility] [place] [address] * (ABNORMAL) POC, GLUCOSE (09/27/2024 11:46 PM EST) Glucometer, POC 205(H) 65 - 199 mg/dL 09/27/2024 11:46 PM EST [facility] Comment:Supplemental ranges: <140 mg/dL before meals <180 mg/dL all other times of the day. Blood CAPILLARY BLOOD / Unknown 09/27/2024 11:46 PM EST 09/27/2024 11:46 PM EST Marko Dickson MD POINT OF CARE TEST O RDERABLES [facility] [place] [address] * (ABNORMAL) Blood culture (09/27/2024 9:33 PM EST) Blood Culture Methicillin Resistant Staphylococcus aureus(Critical) 10/02/2024 8:04 AM EST [facility] Comment:Susceptibilities pre viously reported. Gram Stain Aerobic Bottle: Gram positive cocci in clusters(Critical ) 10/02/2024 8:04 AM EST [facility] Blood VENOUS BLOOD SPECIMEN / Unknown Venipuncture / Unknown 09/27/2024 9:33 PM EST 09/27/2024 9:38 PM EST Marko Dickson MD MICROBIOLOGY - BLOOD ORDERABLES [facility] [place] [address] * POC, GLUCOSE (09/27/2024 7:51 PM EST) [facility] Glucometer, POC 142 65 - 199 mg/dL 09/27/2024 7:51 PM EST [facility] Comment:Supplemental ranges: <140 mg/dL before meals <180 mg/dL all other times of the day. Blood CAPILLARY BLOOD / Unknown 09/27/2024 7:51 PM EST 09/27/2024 7:51 PM EST Marko Dickson MD POINT OF CARE TEST O RDERABLES Performing Organization Address City/[facility]/ZIP Co de Phone Number [facility] [place] [address] * (ABNORMAL) Hemogram (09/27/2024 5:55 PM EST) [facility] White Blood Cell 19.38(H) 4.00 - 9.50 x10(3)/mc L 09/27/2024 6:16 PM [facility] Red Blood Cell 3.76(L) 4.58 - 5.54 x10(6)/mc L 09/27/2024 6:16 PM [facility] Hemoglobin 11.0(L) 13.7 - 16.5 g/dL 09/27/2024 6:16 PM [facility] Hematocrit 31.6(L) 40.5 - 48.5 % 09/27/2024 6:16 PM [facility] Mean Cell Volume 84.0 82.9 - 93.1 fL 09/27/2024 6:16 PM [facility] Mean Cell Hemoglobin 29.3 27.5 - 32.1 pg 09/27/2024 6:16 PM [facility] Mean Cell Hemoglobin Concentration 34.8 32.0 - 35.7 g/dL 09/27/2024 6:16 PM [facility] Platelet 322 145 - 357 x10(3)/mc L 09/27/2024 6:16 PM EST [facility] Mean Platelet Volume 9.4 7.6 - 12.9 fL 09/27/2024 6:16 PM [facility] RDW Standard Deviation 39.4 36.0 - 45.0 fL 09/27/2024 6:16 PM [facility] RDW coefficient of variation 13.0 11.4 - 13.8 % 09/27/2024 6:16 PM [facility] NRBC% auto 0.0 % 09/27/2024 6:16 PM [facility] NRBC Absolute <0.01 <0.01 x10(3)/mc L 09/27/2024 6:16 PM [facility] Blood VENOUS BLOOD SPECIMEN / Unknown Venipuncture / Unknown 09/27/2024 5:55 PM EST 09/27/2024 6:05 PM EST aMrko Dickson MD HEMATOLOGY ORDERABLE S [facility] [place] [address] * POC, GLUCOSE (09/27/2024 5:48 PM EST) [facility] Glucometer, POC 171 65 - 199 mg/dL 09/27/2024 5:48 PM EST [facility] Comment:Supplemental ranges: <140 mg/dL before meals <180 mg/dL all other times of the day. Blood CAPILLARY BLOOD / Unknown 09/27/2024 5:48 PM EST 09/27/2024 5:48 PM EST Marko Dickson MD POINT OF CARE TEST O RDERABLES [facility] [place] [address] * Anaerobic Culture (09/27/2024 4:54 PM EST) [facility] Anaerobic Culture No anaerobic organisms isolated 10/01/2024 3:54 PM EST [facility] Tissue STRUCTURE OF LEFT THIGH / Unknown 09/27/2024 4:54 PM EST Comment:Infected explanted l eft leg bypass graft Hayley Torres MD MICROBIOLOGY - GENER AL ORDERABLES Performing Organization Address City/[facility] Co de Phone Number [facility] [place] [address] * (ABNORMAL) Tissue Culture, Aerobic Only (09/27/2024 4:54 PM EST) Tissue Culture Rare Methicillin Resistant Staphylococcus aureus(A) VITEK 2 METHOD 10/01/2024 1:18 PM EST [facility] Gram Stain Few Neutrophils seen 10/01/2024 1:18 PM EST [facility] Gram Stain No microorganisms seen 10/01/2024 1:18 PM EST [facility] Tissue STRUCTURE OF LEFT [...] - GENER AL ORDERABLES Performing Organization Address City/State/[facility] Co de Phone Number [facility] [place] [address] * Fungus culture (09/27/2024 4:54 PM EST) Fungus Culture No fungus isolated 10/31/2024 7:55 AM EST [facility] Tissue STRUCTURE OF LEFT THIGH / Unknown 09/27/2024 4:54 PM EST 09/27/2024 5:23 PM EST Comment:Infected explanted l eft leg bypass graft Hayley Torres MD MICROBIOLOGY - GENER AL ORDERABLES Performing Organization Address [facility] Co de Phone Number [facility] [place] [address] * POC, GLUCOSE (09/27/2024 3:23 PM EST) Glucometer, POC 178 65 - 199 mg/dL 09/27/2024 3:23 PM EST [facility] Comment:Supplemental ranges: <140 mg/dL before meals <180 mg/dL all other times of the day. Blood CAPILLARY BLOOD / Unknown 09/27/2024 3:23 PM EST 09/27/2024 3:23 PM EST Marko Dickson MD POINT OF CARE TEST O RDERABLES Performing Organization Address City/[facility]/ZIP Co de Phone Number [facility] [place] [address] * POC, GLUCOSE (09/27/2024 11:29 AM EST) Glucometer, POC 181 65 - 199 mg/dL 09/27/2024 11:29 AM EST [facility] Comment:Supplemental ranges: <140 mg/dL before meals <180 mg/dL all other times of the day. Blood CAPILLARY BLOOD / Unknown 09/27/2024 11:29 AM EST 09/27/2024 11:30 AM EST Marko Dickson MD POINT OF CARE TEST O RDERABLES [facility] [place] [address] * CT Lower Extremity w Contrast Left (09/27/2024 9:16 AM EST) [facility] Signature WORKSTATION ID [id number] RAD Anatomical Region Laterality Modality Hip, Leg, [...] have questions please contact the health healthcare insurance sales agent that requested your imaging first. ? Narrative [...] wedged between the vastus medialis and adductor [place] muscle. This tracks into the popliteal fossa [...] who have questions please contactthe health healthcare insurance sales agent that requested your imaging first. Rose Wright APRN IMG CT ORDERABL ES * POC, GLUCOSE (09/27/2024 7:51 AM EST) [facility] Glucometer, POC 194 65 - 199 mg/dL 09/27/2024 7:51 AM EST [facility] Comment:Supplemental ranges: <140 mg/dL before meals <180 mg/dL all other times of the day. Blood CAPILLARY BLOOD / Unknown 09/27/2024 7:51 AM EST 09/27/2024 7:51 AM EST Marko Dickson MD POINT OF CARE TEST O RDERABLES [facility] [place] [place] [address] * (ABNORMAL) MRSA PCR Screen (09/27/2024 7:51 AM EST) Pathologist [facility] MRSA PCR Detected(A ) 09/27/2024 11:56 AM EST [facility] Swab BOTH ANTERIOR NARES / Unknown Non Blood Collection / Unknown 09/27/2024 7:51 AM EST 09/27/2024 8:05 AM EST Narrative [facility] - 09/27/2024 11:56 AM EST This test was performed using the Xpert MRSA NxG test kit and is run on the [employer] GeneXpert Dx System. This test is cleared by the U.S. Food and Drug Administration for clinical use and its performance characteristics have been verified by the [facility] at [facility]. Marko Dickson MD MOLECULAR ORDERABLES [facility] [place] [address] * Potassium (09/27/2024 7:51 AM EST) Potassium 3.5 3.5 - 5.0 mMol/L 09/27/2024 9:09 AM EST [facility] Blood VENOUS BLOOD SPECIMEN / Unknown Venipuncture / Unknown 09/27/2024 7:51 AM EST 09/27/2024 8:05 AM EST Marko Dickson MD CHEMISTRY ORDERABLES Performing Organization Address City/[facility]/ZIP Co de Phone Number [facility] [place] [address] * (ABNORMAL) Potassium (09/27/2024 5:05 AM EST) Potassium 3.4(L) 3.5 - 5.0 mMol/L 09/27/2024 5:32 AM EST [facility] Blood VENOUS BLOOD SPECIMEN / Unknown Venipuncture / Unknown 09/27/2024 5:05 AM EST 09/27/2024 5:09 AM EST Marko Dickson MD CHEMISTRY ORDERABLES Performing Organization Address City/[facility]/ZIP Co de Phone Number [facility] [place] [address] * POC, GLUCOSE (09/27/2024 3:52 AM EST) Glucometer, POC 199 65 - 199 mg/dL 09/27/2024 3:52 AM EST [facility] Comment:Supplemental ranges: <140 mg/dL before meals <180 mg/dL all other times of the day. Blood CAPILLARY BLOOD / Unknown 09/27/2024 3:52 AM EST 09/27/2024 3:52 AM EST Marko Dickson MD POINT OF CARE TEST O GILDA Performing Organization Address City/[facility]/ZIP Co de Phone Number [facility] [place] [address] * (ABNORMAL) POC, GLUCOSE (09/27/2024 1:59 AM EST) Glucometer, POC 219(H) 65 - 199 mg/dL 09/27/2024 2:00 AM EST [facility] Comment:Supplemental ranges: <140 mg/dL before meals <180 mg/dL all other times of the day. Blood CAPILLARY BLOOD / Unknown 09/27/2024 1:59 AM EST 09/27/2024 2:00 AM EST Marko Dickson MD POINT OF CARE TEST O GILDA Performing Organization Address [facility] Co de Phone Number [facility] [place] [address] * (ABNORMAL) Magnesium (09/27/2024 12:01 AM EST) Magnesium 0.68(L) 0.69 - 1.07 mMol/L 09/27/2024 12:35 AM EST [facility] Blood VENOUS BLOOD SPECIMEN / Unknown Venipuncture / Unknown 09/27/2024 12:01 AM EST 09/27/2024 12:05 AM EST Hayley Torres MD CHEMISTRY ORDERABLES Performing Organization Address City/[facility]/ZIP Co de Phone Number [facility] [place] [address] * (ABNORMAL) Basic Metabolic Panel (09/27/2024 12:01 AM EST) Glucose 261(H) 65 - 199 mg/dL 09/27/2024 12:35 AM [facility] Comment:Glucose Concentratio n >=200 mg/dL plus symptoms is consistent with Diabetes Mellitus. Blood Urea Nitrogen 7(L) 10 - 20 mg/dL 09/27/2024 12:35 AM [facility] Creatinine 0.45(L) 0.80 - 1.50 mg/dL 09/27/2024 12:35 AM [facility] Sodium 128(L) 135 - 145 mMol/L 09/27/2024 12:35 AM [facility] Potassium 3.3(L) 3.5 - 5.0 mMol/L 09/27/2024 12:35 AM [facility] Chloride 92(L) 98 - 107 mMol/L 09/27/2024 12:35 AM [facility] Carbon Dioxide 23 22 - 31 mMol/L 09/27/2024 12:35 AM [facility] Anion Gap 13 5 - 15 mMol/L 09/27/2024 12:35 AM [facility] Calcium 8.5 8.5 - 10.5 mg/dL 09/27/2024 12:35 AM [facility] Est Glomerular Filtration Rate - Male 128 mL/min/1. 73 m?? 09/27/2024 12:35 AM [facility] Comment: This patient's estimated GFR [...] AM EST Hayley Torres MD CHEMISTRY ORDERABLES [facility] [place] [address] * (ABNORMAL) CBC (with Diff) (09/27/2024 12:01 AM EST) White Blood Cell 23.20(H) 4.00 - 9.50 x10(3)/mc L 09/27/2024 12:10 AM [facility] Red Blood Cell 4.07(L) 4.58 - 5.54 x10(6)/mc L 09/27/2024 12:10 AM [facility] Hemoglobin 11.7(L) 13.7 - 16.5 g/dL 09/27/2024 12:10 AM [facility] Hematocrit 33.6(L) 40.5 - 48.5 % 09/27/2024 12:10 AM [facility] Mean Cell Volume 82.6(L) 82.9 - 93.1 fL 09/27/2024 12:10 AM [facility] Mean Cell Hemoglobin 28.7 27.5 - 32.1 pg 09/27/2024 12:10 AM [facility] Mean Cell Hemoglobin Concentration 34.8 32.0 - 35.7 g/dL 09/27/2024 12:10 AM [facility] Platelet 296 145 - 357 x10(3)/mc L 09/27/2024 12:10 AM [facility] Mean Platelet Volume 9.5 7.6 - 12.9 fL 09/27/2024 12:10 AM [facility] RDW Standard Deviation 37.9 36.0 - 45.0 fL 09/27/2024 12:10 AM [facility] RDW coefficient of variation 12.6 11.4 - 13.8 % 09/27/2024 12:10 AM [facility] NRBC% auto 0.0 % 09/27/2024 12:10 AM [facility] NRBC Absolute <0.01 <0.01 x10(3)/mc L 09/27/2024 12:10 AM [facility] Neutrophil % 83.7 % 09/27/2024 12:10 AM [facility] Neutrophil Absolute (ANC) - Automated 19.43(H) 1.70 - 6.10 x10(3)/mc L 09/27/2024 12:10 AM [facility] Lymph % 6.7 % 09/27/2024 12:10 AM [facility] Lymph Absolute 1.56 0.90 - 3.20 x10(3)/mc L 09/27/2024 12:10 AM [facility] Monocyte % 7.8 % 09/27/2024 12:10 AM [facility] Monocyte Absolute 1.80(H) 0.30 - 0.90 x10(3)/mc L 09/27/2024 12:10 AM [facility] Eos % 0.2 % 09/27/2024 12:10 AM [facility] Eos Absolute 0.04 0.00 - 0.40 x10(3)/mc L 09/27/2024 12:10 AM [facility] Basophil % 0.5 % 09/27/2024 12:10 AM [facility] Baso Absolute 0.12(H) 0.00 - 0.10 x10(3)/mc L 09/27/2024 12:10 AM [facility] Immature Gran % 1.1 % 12:10 AM [facility] Immature Gran Absolute 0.25(H) 0.00 - 0.04 x10(3)/mc L 09/27/2024 12:10 AM [facility] Blood VENOUS BLOOD SPECIMEN / Unknown Venipuncture / Unknown 09/27/2024 12:01 AM EST 09/27/2024 12:05 AM EST Hayley Torres MD HEMATOLOGY ORDERABLE S Performing Organization Address [facility]/ZIP Co de Phone Number [facility] [place] [address] * (ABNORMAL) POC, GLUCOSE (09/26/2024 11:59 PM EST) Glucometer, POC 251(H) 65 - 199 mg/dL 09/26/2024 11:59 PM EST [facility] Comment:Supplemental ranges: <140 mg/dL before meals <180 mg/dL all other times of the day. Blood CAPILLARY BLOOD / Unknown 09/26/2024 11:59 PM EST 09/26/2024 11:59 PM EST Marko Dickson MD POINT OF CARE TEST Stephanie VO Performing Organization Address [facility] Co de Phone Number [facility] [place] [address] * (ABNORMAL) POC, GLUCOSE (09/26/2024 7:34 PM EST) Glucometer, POC 204(H) 65 - 199 mg/dL 09/26/2024 7:34 PM EST [facility] Comment:Supplemental ranges: <140 mg/dL before meals <180 mg/dL all other times of the day. Blood CAPILLARY BLOOD / Unknown 09/26/2024 7:34 PM EST 09/26/2024 7:35 PM EST Marko Dickson MD POINT OF CARE TEST O GILDA Performing Organization Address [facility] Co de Phone Number [facility] [place] [address] * (ABNORMAL) Blood culture (09/26/2024 6:45 PM EST) Blood Culture Methicillin Resistant Staphylococcus aureus(Critical) 10/01/2024 6:58 AM EST [facility] Comment: isolated. Susceptibilities previously reported. Gram Stain Aerobic Bottle: Gram positive cocci in clusters(Critical ) 10/01/2024 6:58 AM EST [facility] Blood VENOUS BLOOD SPECIMEN / Unknown Venipuncture / Unknown 09/26/2024 6:45 PM EST 09/26/2024 6:48 PM EST Marko Dickson MD MICROBIOLOGY - BLOOD ORDERABLES [facility] [place] [address] * (ABNORMAL) Sonicated Tissue/Implant Culture (09/26/2024 5:16 PM EST) Sonicated Tissue/Implan t Culture Methicillin Resistant Staphylococcus aureus(A) VITEK 2 METHOD 09/30/2024 1:49 PM EST [facility] Comment: isolated from broth culture. Susceptibilities previously reported. Vascular Graft STRUCTURE OF LEFT LOWER LIMB / Unknown Non Blood Collection / Unknown 09/26/2024 5:16 PM EST 09/26/2024 5:45 PM EST Marko Dickson MD MICROBIOLOGY - GENER AL ORDERABLES [facility] [place] [address] * Anaerobic Culture (09/26/2024 5:02 PM EST) Anaerobic Culture No anaerobic organisms isolated 09/30/2024 3:51 PM EST [facility] Abscess STRUCTURE OF LEFT KNEE REGION / Unknown Non Blood Collection / Unknown 09/26/2024 5:02 PM EST Comment:Left Below Knee popl iteal fluid Please perform Gram stain if not included in order Hayley Torres MD MICROBIOLOGY - GENER AL ORDERABLES Performing Organization Address City/[facility]/ZIP Co de Phone Number [facility] [place] [address] * (ABNORMAL) Abscess/Wound Aspirate Culture, Aerobic Only (09/26/2024 5:02 PM EST) Abscess/Wound Aspirate Culture Many Methicillin Resistant Staphylococcus aureus(A) VITEK 2 METHOD 09/30/2024 1:37 PM EST [facility] Gram Stain Many neutrophils(A) 09/30/2024 1:37 PM EST [facility] Gram Stain Many Gram positive cocci(A) 09/30/2024 1:37 PM EST [facility] Abscess STRUCTURE OF LEFT [...] Torres MD MICROBIOLOGY - GENER AL ORDERABLES [facility] [place] [address] * Fungus culture (09/26/2024 5:02 PM EST) Fungus Culture No fungus isolated 10/24/2024 7:54 AM EST [facility] Abscess STRUCTURE OF LEFT KNEE REGION / Unknown Non Blood Collection / Unknown 09/26/2024 5:02 PM EST 09/26/2024 5:08 PM EST Comment:Left Below Knee popl iteal fluid Please perform Gram stain if not included in order Hayley Torres MD MICROBIOLOGY - GENER AL ORDERABLES Performing Organization Address City/[facility]/ZIP Co de Phone Number [facility] [place] [address] * Anaerobic Culture (09/26/2024 4:50 PM EST) Anaerobic Culture No anaerobic organisms isolated 09/30/2024 3:51 PM EST [facility] Abscess LEFT INGUINAL REGION STRUCTURE / Unknown Non Blood Collection / Unknown 09/26/2024 4:50 PM EST Comment:Left Groin Fluid Hayley Torres MD MICROBIOLOGY - GENER AL ORDERABLES Performing Organization Address [facility] Co de Phone Number [facility] [place] [address] * (ABNORMAL) Abscess/Wound Aspirate Culture, Aerobic Only (09/26/2024 4:50 PM EST) Abscess/Wound Aspirate Culture Many Methicillin Resistant Staphylococcus aureus(A) VITEK 2 METHOD 09/30/2024 1:36 PM EST [facility] Gram Stain Many neutrophils(A) 09/30/2024 1:36 PM EST [facility] Gram Stain Many Gram positive cocci(A) 09/30/2024 1:36 PM EST [facility] Abscess LEFT INGUINAL REGION [...] AL ORDERABLES Performing Organization Address [facility] Co de Phone Number [facility] [place] [address] * Fungus culture (09/26/2024 4:50 PM EST) Pathologist [facility] Fungus Culture No fungus isolated 10/24/2024 7:54 AM [facility] Abscess LEFT INGUINAL REGION STRUCTURE / Unknown Non Blood Collection / Unknown 09/26/2024 4:50 PM EST 09/26/2024 4:56 PM EST Comment:Left Groin Fluid Hayley Torres MD MICROBIOLOGY - GENER AL ORDERABLES Performing Organization Address [facility] de Phone Number [facility] [place] [address] * (ABNORMAL) Blood Gas, Arterial POC (09/26/2024 4:43 PM EST) pH, Arterial 7.38 7.35 - 7.45 09/27/2024 7:41 AM [facility] PCO2, Arterial 41 35 - 45 mmHg 09/27/2024 7:41 AM [facility] PO2, Arterial 96 85 - 104 mmHg 09/27/2024 7:41 AM [facility] Bicarbonate, Arterial 23.8 20.0 - 26.0 mmol/L 09/27/2024 7:41 AM [facility] Base Excess, Arterial -1.4 -3.0 - 3.0 mmol/L 09/27/2024 7:41 AM [facility] Hemoglobin, Arterial 12.6(L) 13.7 - 16.5 g/dL 09/27/2024 7:41 AM [facility] Oxyhemoglobin, Arterial 96.2 94.0 - 97.0 % 09/27/2024 7:41 AM [facility] Carboxyhemoglobin , Arterial 0.3 % 09/27/2024 7:41 AM [facility] Comment: Nonsmokers: 0.5-1.5% COHB ?? Smokers: Variable ??but usually less than 10% ?? Toxic: 20-30% COHB ?? Lethal: Greater than 60% COHB Methemoglobin, Arterial 0.3 <=1.5 % 09/27/2024 7:41 AM [facility] Sodium, Arterial 128(L) 135 - 145 mmol/L 09/27/2024 7:41 AM [facility] Potassium, Arterial 3.0(LLL) 3.5 - 5.0 mmol/L 09/27/2024 7:41 AM [facility] Chloride, Arterial 95(L) 98 - 107 mmol/L 09/27/2024 7:41 AM [facility] Lactate, Arterial 1.7 0.5 - 2.2 mmol/L 09/27/2024 7:41 AM [facility] IONIZED CALCIUM, ARTERIAL 1.09(L) 1.15 - 1.33 mmol/L 09/27/2024 7:41 AM [facility] Glucose, Arterial 205(H) 65 - 199 mg/dL 09/27/2024 7:41 AM [facility] Comment:Glucose Concentratio n >=200 mg/dL plus symptoms is consistent with Diabetes Mellitus. Blood ARTERIAL BLOOD / Unknown 09/26/2024 4:43 PM EST 09/27/2024 7:41 AM EST Marko Dickson MD POINT OF CARE TEST O RDERABLES [facility] [place] [address] * (ABNORMAL) POC, GLUCOSE (09/26/2024 4:29 PM EST) Glucometer, POC 213(H) 65 - 199 mg/dL 09/26/2024 4:30 PM EST [facility] Comment:Supplemental ranges: <140 mg/dL before meals <180 mg/dL all other times of the day. Blood CAPILLARY BLOOD / Unknown 09/26/2024 4:29 PM EST 09/26/2024 4:30 PM EST Marko iDckson MD POINT OF CARE TEST O RDERABLES [facility] [place] [address] * (ABNORMAL) Blood Gas, Venous POC (09/26/2024 3:28 PM EST) pH, Venous 7.43(H) 7.32 - 7.42 09/26/2024 3:30 PM [facility] PCO2, Venous 41 38 - 58 mmHg 09/26/2024 3:30 PM [facility] PO2, Venous 18 16 - 65 mmHg 09/26/2024 3:30 PM [facility] Bicarbonate, Venous 26.6 22 - 31 mmol/L 09/26/2024 3:30 PM [facility] Base Excess, Venous 2.3 1.9 - 4.5 mmol/L 09/26/2024 3:30 PM [facility] Hemoglobin, Venous 12.4(L) 13.7 - 16.5 g/dL 09/26/2024 3:30 PM [facility] Oxyhemoglobin, Venous 26.8 % 09/26/2024 3:30 PM [facility] Carboxyhemoglobin , Venous 1.0 % 09/26/2024 3:30 PM [facility] Comment: Nonsmokers: 0.5-1.5% COHB ?? Smokers: Variable ??but usually less than 10% ?? Toxic: 20-30% COHB ?? Lethal: Greater than 60% COHB Methemoglobin, Venous 0.4 <=1.5 % 09/26/2024 3:30 PM EST [facility] Sodium, Venous 127(L) 135 - 145 mmol/L 09/26/2024 3:30 PM [facility] Potassium, Venous 3.3(L) 3.5 - 5.0 mmol/L 09/26/2024 3:30 PM [facility] Chloride, Venous 91(L) 98 - 107 mmol/L 09/26/2024 3:30 PM [facility] Glucose, Venous 259(H) 65 - 199 mg/dL 09/26/2024 3:30 PM [facility] Comment:Glucose Concentratio n >=200 mg/dL plus symptoms is consistent with Diabetes Mellitus. Lactate, Venous 2.2 0.5 - 2.2 mmol/L 09/26/2024 3:30 PM [facility] Ionized Calcium, Venous 1.09(L) 1.15 - 1.33 mmol/L 09/26/2024 3:30 PM [facility] Blood VENOUS BLOOD SPECIMEN / Unknown 09/26/2024 3:28 PM EST 09/26/2024 3:30 PM EST Marko Dickson MD POINT OF CARE TEST O RDERABLES [facility] [place] [address] * (ABNORMAL) Scan, Peripheral Blood (09/26/2024 2:39 PM EST) RBC Morphology Abnormal 09/26/2024 3:21 PM [facility] Platelet Estimate Normal Normal 09/26/2024 3:21 PM [facility] Microcyte 1-5 /HPF 09/26/2024 3:21 PM [facility] Platelet Clumps Present(A) (none) 3:21 PM EST [facility] WBC MORPHOLOGY See Comment(A) (none) 09/26/2024 3:21 PM EST [facility] Comment:Dohle BodiesToxic Gr anulation Blood VENOUS BLOOD SPECIMEN / Unknown Venipuncture / Unknown 09/26/2024 2:39 PM EST 09/26/2024 2:50 PM EST Marko Dickson MD HEMATOLOGY ORDERABLE S [facility] [place] [address] * ABORH RECHECK (PATIENT HISTORY FOUND) (09/26/2024 2:39 PM EST) [facility] ABORH Recheck Progress Complete 09/26/2024 5:01 PM EST [facility] Blood VENOUS BLOOD SPECIMEN / Unknown Venipuncture / Unknown 09/26/2024 2:39 PM EST 09/26/2024 2:56 PM EST Marko Dickson MD BLOOD BANK LAB ORDER RANDELL Performing Organization Address City/[facility]/ZIP Co de Phone Number [facility] [place] [address] * (ABNORMAL) Hepatic Function Panel (09/26/2024 2:39 PM EST) [facility] Albumin 3.1(L) 3.2 - 5.2 g/dL 09/26/2024 4:23 PM EST [facility] Aspartate Aminotransferase 16 <=39 unit/L 09/26/2024 4:23 PM EST [facility] Alanine Aminotransferase 14 0 - 55 unit/L 09/26/2024 4:23 PM [facility] Alkaline Phosphatase 160(H) 40 - 130 unit/L 09/26/2024 4:23 PM [facility] Bilirubin, Total 0.4 <=1.3 mg/dL 09/26/2024 4:23 PM [facility] Bilirubin, Direct 0.2 0.0 - 0.3 mg/dL 09/26/2024 4:23 PM EST [facility] Protein, Total 7.0 6.1 - 8.0 g/dL 09/26/2024 4:23 PM [facility] Blood VENOUS BLOOD SPECIMEN / Unknown Venipuncture / Unknown 09/26/2024 2:39 PM EST 09/26/2024 2:50 PM EST Marko Dickson MD CHEMISTRY ORDERABLES [facility] [place] [address] * (ABNORMAL) Basic Metabolic Panel (09/26/2024 2:39 PM EST) Glucose 254(H) 65 - 199 mg/dL 09/26/2024 4:32 PM EST [facility] Comment:Glucose Concentratio n >=200 mg/dL plus symptoms is consistent with Diabetes Mellitus. Blood Urea Nitrogen 9(L) 10 - 20 mg/dL 09/26/2024 4:32 PM [facility] Creatinine 0.55(L) 0.80 - 1.50 mg/dL 09/26/2024 4:32 PM [facility] Sodium 127(L) 135 - 145 mMol/L 09/26/2024 4:32 PM [facility] Potassium 3.4(L) 3.5 - 5.0 mMol/L 09/26/2024 4:32 PM [facility] Chloride 89(L) 98 - 107 mMol/L 09/26/2024 4:32 PM [facility] Carbon Dioxide 25 22 - 31 mMol/L 09/26/2024 4:32 PM [facility] Anion Gap 13 5 - 15 mMol/L 09/26/2024 4:32 PM [facility] Calcium 8.9 8.5 - 10.5 mg/dL 09/26/2024 4:32 PM [facility] Est Glomerular Filtration Rate - Male 121 mL/min/1. 73 m?? 09/26/2024 4:32 PM EST [facility] Comment: This patient's estimated [...] Torres MD CHEMISTRY ORDERABLES Performing Organization Address City/State/[facility] Co de Phone Number [facility] [place] [address] * (ABNORMAL) CBC (with Diff) (09/26/2024 2:39 PM EST) White Blood Cell 22.76(H) 4.00 - 9.50 x10(3)/mc L 09/26/2024 3:21 PM [facility] Red Blood Cell 4.20(L) 4.58 - 5.54 x10(6)/mc L 09/26/2024 3:21 PM [facility] Hemoglobin 12.3(L) 13.7 - 16.5 g/dL 09/26/2024 3:21 PM [facility] Hematocrit 35.0(L) 40.5 - 48.5 % 09/26/2024 3:21 PM [facility] Mean Cell Volume 83.3 82.9 - 93.1 fL 09/26/2024 3:21 PM [facility] Mean Cell Hemoglobin 29.3 27.5 - 32.1 pg 09/26/2024 3:21 PM [facility] Mean Cell Hemoglobin Concentration 35.1 32.0 - 35.7 g/dL 09/26/2024 3:21 PM [facility] Platelet 277 145 - 357 x10(3)/mc L 09/26/2024 3:21 PM [facility] Mean Platelet Volume 9.6 7.6 - 12.9 fL 09/26/2024 3:21 PM [facility] RDW Standard Deviation 37.9 36.0 - 45.0 fL 09/26/2024 3:21 PM [facility] RDW coefficient of variation 12.6 11.4 - 13.8 % 09/26/2024 3:21 PM [facility] NRBC% auto 0.0 % 09/26/2024 3:21 PM [facility] NRBC Absolute <0.01 <0.01 x10(3)/mc L 09/26/2024 3:21 PM [facility] Neutrophil % 84.0 % 09/26/2024 3:21 PM [facility] Comment:This is an appended report. These results have been appended to a previously preliminary verified report. Neutrophil Absolute (ANC) - Automated 19.10(H) 1.70 - 6.10 x10(3)/mc L 09/26/2024 3:21 PM [facility] Comment:This is an appended report. These results have been appended to a previously preliminary verified report. Lymph % 6.2 % 09/26/2024 3:21 PM [facility] Comment:This is an appended report. These results have been appended to a previously preliminary verified report. Lymph Absolute 1.41 0.90 - 3.20 x10(3)/mc L 09/26/2024 3:21 PM [facility] Comment:This is an appended report. These results have been appended to a previously preliminary verified report. Monocyte % 8.1 % 09/26/2024 3:21 PM [facility] Comment:This is an appended report. These results have been appended to a previously preliminary verified report. Monocyte Absolute 1.85(H) 0.30 - 0.90 x10(3)/mc L 09/26/2024 3:21 PM EST [facility] Comment:This is an appended report. These results have been appended to a previously preliminary verified report. Eos % 0.0 % 09/26/2024 3:21 PM EST [facility] Comment:This is an appended report. These results have been appended to a previously preliminary verified report. Eos Absolute <0.04 0.00 - 0.40 x10(3)/mc L 09/26/2024 3:21 PM EST [facility] Comment:This is an appended report. These results have been appended to a previously preliminary verified report. Basophil % 0.5 % 09/26/2024 3:21 PM EST [facility] Comment:This is an appended report. These results have been appended to a previously preliminary verified report. Baso Absolute 0.11(H) 0.00 - 0.10 x10(3)/mc L 09/26/2024 3:21 PM EST [facility] Comment:This is an appended report. These results have been appended to a previously preliminary verified report. Immature Gran % 1.2 % 3:21 PM EST [facility] Comment:This is an appended report. These results have been appended to a previously preliminary verified report. Immature Gran Absolute 0.28(H) 0.00 - 0.04 x10(3)/mc L 09/26/2024 3:21 PM EST [facility] Comment:This is an appended report. These results have been appended to a previously preliminary verified report. Blood VENOUS BLOOD SPECIMEN / Unknown Venipuncture / Unknown 09/26/2024 2:39 PM EST 09/26/2024 2:50 PM EST Hayley Torres MD HEMATOLOGY ORDERABLE S [facility] [place] [address] * Phosphorus (09/26/2024 2:39 PM EST) [facility] Phosphorus 3.2 2.5 - 4.5 mg/dL 09/26/2024 4:05 PM EST [facility] Blood VENOUS BLOOD SPECIMEN / Unknown Venipuncture / Unknown 09/26/2024 2:39 PM EST 09/26/2024 2:50 PM EST Marko Dickson MD CHEMISTRY ORDERABLES [facility] [place] [address] * (ABNORMAL) Magnesium (09/26/2024 2:39 PM EST) [facility] Magnesium 0.65(L) 0.69 - 1.07 mMol/L 09/26/2024 4:05 PM EST [facility] Blood VENOUS BLOOD SPECIMEN / Unknown Venipuncture / Unknown 09/26/2024 2:39 PM EST 09/26/2024 2:50 PM EST Marko Dickson MD CHEMISTRY ORDERABLES [facility] [place] [address] * Type and screen ([facility]/CGP/BABITA) (09/26/2024 2:39 PM EST) [facility] ABORH Type A POSITIVE 09/26/2024 3:45 PM EST [facility] PATIENT HISTORY Found 09/26/2024 3:45 PM EST [facility] Expires at [id number] on: 09/29/2024 09/26/2024 3:45 PM EST [facility] ANTIBODY SCREEN AUTOMATED Negative 09/26/2024 3:45 PM EST [facility] T&S only valid at [facility] 09/26/2024 3:45 PM EST [facility] Blood VENOUS BLOOD SPECIMEN / Unknown Venipuncture / Unknown 09/26/2024 2:39 PM EST 09/26/2024 2:56 PM EST Narrative [facility] - 09/26/2024 3:45 PM EST This Type and Screen result is only valid at the [facility] Marko Dickson MD BLOOD BANK LAB ORDER [facility] [place] [address] * (ABNORMAL) Fibrinogen (09/26/2024 2:39 PM EST) [facility] Fibrinogen >1,000(H) 200 - 393 mg/dL 09/26/2024 3:09 PM EST [facility] Comment: A fibrinogen level >100 mg/dL is adequate for hemostasis in most patients without underlying bleeding disorders. Blood VENOUS BLOOD SPECIMEN / Unknown Venipuncture / Unknown 09/26/2024 2:39 PM EST 09/26/2024 2:50 PM EST Marko Dickson MD HEMATOLOGY ORDERABLE S Performing Organization Address City/[facility]/ZIP Co de Phone Number [facility] [place] [address] * APTT (09/26/2024 2:39 PM EST) [facility] Partial Thromboplastin Time 36 25 - 37 sec 09/26/2024 3:09 PM EST [facility] Comment: The PTT is NOT appropriate for heparin monitoring. Use the Anti-Xa level for heparin monitoring (HEP UFH) or LMWH monitoring (HEP LMW). A PTT less than 37 seconds generally indicates adequate hemostasis. Blood VENOUS BLOOD SPECIMEN / Unknown Venipuncture / Unknown 09/26/2024 2:39 PM EST 09/26/2024 2:50 PM EST Marko Dickson MD HEMATOLOGY ORDERABLE S [facility] [place] [address] * (ABNORMAL) Prothrombin Time (09/26/2024 2:39 PM EST) [facility] Prothrombin Time 21.6(H) 9.4 - 12.5 sec 09/26/2024 3:09 PM EST [facility] International Normalization Ratio 1.9 <=4.9 09/26/2024 3:09 PM EST [facility] Comment: An INR < [...] HEMATOLOGY ORDERABLE S Performing Organization Address City/[facility]/ZIP Co de Phone Number [facility] [place] [address] * (ABNORMAL) POC, GLUCOSE (09/26/2024 2:36 PM EST) [facility] Glucometer, POC 268(H) 65 - 199 mg/dL 09/26/2024 2:36 PM EST [facility] Comment:Supplemental ranges: <140 mg/dL before meals <180 mg/dL all other times of the day. Blood CAPILLARY BLOOD / Unknown 09/26/2024 2:36 PM EST 09/26/2024 2:36 PM EST Marko Dickson MD POINT OF CARE TEST O RDERABLES [facility] [place] [address] * (ABNORMAL) Blood culture (09/26/2024 2:22 PM EST) [facility] Blood Culture Methicillin Resistant Staphylococcus aureus(Critical) VITEK 2 METHOD 10/07/2024 7:40 AM EST [facility] Comment: detected by PCR Isolate saved. If future testing is required, contact the Microbiology Language Instructor. Gram Stain Aerobic Bottle: Gram positive cocci in clusters(Critical ) 10/07/2024 7:40 AM EST [facility] Blood VENOUS BLOOD SPECIMEN [...] Marko Dickson MD MICROBIOLOGY - BLOOD ORDERABLES [facility] [place] [phone] * Request For 2nd Read CT Lower Extremity (09/26/2024 1:50 PM EST) [employer] WORKSTATION ID [id number] RAD Anatomical Region Laterality Modality Hip, Leg, [...] have questions please contact the health healthcare insurance sales agent that requested your imaging first. ? Electronically signed by: Lisette Bruno MD, [facility] ([phone]), at 09/26/2024 3:01 PM Narrative 09/26/2024 3:01 PM EST EXAMINATION: REQUEST FOR 2ND READ CT LOWER EXTREMITY CLINICAL HISTORY: Pt s/p LLE femoral-below knee popliteal bypass with PTFE graft, c/f infection surrounding graft, en route to [facility] for possible vascular surgery intervention; Sending Institution [facility]; Date of exam [id number]; I believe [...] c/f infection surrounding graft, en route to [facility] for possiblevascular surgery intervention; Sending Institution [facility]; Date of exam [id number]; Ibelieve a [...] who have questions please contactthe health healthcare insurance sales agent that requested your imaging first. Electronically signed by: Lisette Bruno MD, [facility]([phone]), at 09/26/2024 3:01 PM Marko Dickson MD [...] Cabrera LPN) 0032 (Given - Provider: Lauren Zavala, DAVID)0604 (Given - Provider: Lauren Zavala, DAVID)1107 (Given [...] DAVID)202 (Given - Provider: Lauren Zavala RN) 0834 [...] - Comment: BG 141)1112 (Given - Provider: eTrell Araiza RN - Comment: BG 174)1632 (Given [...] 2027 (Given - Provider: Jordyn Navas RN) 202 (Given - Provider: Lauren Zavala RN) [...] refused) 0831 (Given - Provider: Terell Araiza, DAVID) venlafaxine XR (Effexor-XR) capsule 225 mg 225 [...] Routine documented in this encounter Care Teams In Store Demonstrator Relationship Specialty Start Date End Date Charles Romero [place] [address] PCP - General Internal Medicine 09/18/24 documented as of this encounter
--- OUTSIDE RECORDS SUMMARY | 2024-10-31 15:40 | XMS_ITS | Encounter Summary ---
Author Organization [facility] Address [facility] [place] [address] Care Team Providers Care Antique Furniture Repairer Name Role Phone Charles Romero Primary Care Provider + Encounter Details Date Type Department Care Team (Late st Contact Info) Description 09/26/2024 Telephone [place] [address] Marko Dickson MD [facility] [place] [address] Social History Tobacco Use Types Packs/Day Years Used Date Smoking Tobacco: Every Day Cigarettes 1 25 Started: 12/28/1986; Last attempted to quit: 12/28/2011 Smokeless Tobacco: Never Alcohol Use Standard Drinks/Week Comments No 0 (1 standard drink = 0.6 oz pur e alcohol) [facility] Utilities Answer Date Recorded In the past 12 months has [employer] electric, gas, oil, or water [email or web address] threatened to shut off services in your [...] any time in the past 12 m [facility], were you homeless or living [...] IV abx and I accepted here at [facility], advised to place in ICU and likely would need debridement/washout upon arrival, maintain npo status documented in this encounter Plan of Treatment Upcoming Encounters Date Type Department Care Team (Late st Contact Info) Description 11/09/2024 1:30 PM EST Office [place] [address] Isabela Hayward APRN [facility] [place] [address] 11/10/2024 10:00 AM EST Office [place] [address] Dai Whitman, TACTICAL AIR DEFENSE CONTROLLER 11/21/2024 2:15 PM EST Office [place] [address] Dayanara Grover MD [facility] [place] [address] documented as of this encounter Visit Diagnoses Not on filedocumented in this encounter Care Teams Antique Furniture Repairer Relationship Specialty Start Date End Date Charles Romero PA [facility] [place] [address] PCP - General Internal Medicine 09/18/24 documented as of this encounter
--- OUTSIDE RECORDS SUMMARY | 2024-10-31 15:41 | XMS_ITS | Encounter Summary ---
Author Organization [facility] [place] [address] Care Team Providers Care Temple Marker Name Role Phone None Primary Care Provider [...] 0.6 oz pur e alcohol) [facility] Utilities Answer Date Recorded In the past 12 months has th e electric, gas, oil, or water [employer] threatened to shut off services in your [...] living in a alf (including now)? No 08/02/2024 IPV Inpatient Questions [...] PM EST Office [place] [address] Isabela Hayward APRN [facility] [place] [address] 11/10/2024 10:00 AM EST Office [place] [address] Dai Whitman APRN 11/21/2024 2:15 PM EST Office [place] [address] Dayanara Grover MD [facility] [place] [address] documented as of this encounter Visit Diagnoses Not on filedocumented in this encounter Care Teams Temple Marker Relationship Specialty Start Date End Date None None PCP - General 05/27/24 09/17/24 documented as of this encounter
--- OUTSIDE RECORDS SUMMARY | 2024-10-31 15:41 | XMS_ITS | Encounter Summary ---
Author Organization [facility] Address [facility] [place] [address] Care Team Providers Care Patient Financial Rep Name Role Phone None Primary Care Provider Unavailabl e Encounter Details Date Type Department Care Team (Late st Contact Info) Description 08/17/2024 3:30 PM EDT Office Visit [place] [address] Viviana Resendiz, RESHMA [facility] [place] [address] PAD (peripheral artery disease); Encounter for post [...] Recorded In the past 12 months has [employer] electric, gas, oil, or water company threatened [...] 3 times daily. Use as instructed Indications: [id number] each 1 FreeStyle Lancets 28 gauge Misc [...] Center 08/28/2024 1:00 PM Erick Jama [place] [facility] 08/28/2024 2:00 PM Marko Dickson MD [facility] V SURG [facility] Viviana Resendiz APRN Department of Vascular Surgery documented in this encounter Plan of Treatment Upcoming Encounters Date Type Department Care Team (Late st Contact Info) Description 11/09/2024 1:30 PM EST Office [place] [address] Isabela Hayward APRN [facility] [place] [address] 11/10/2024 10:00 AM EST Office Visit [place] [address] Dai Whitman APRN 11/21/2024 2:15 PM EST Office [place] [address] Dayanara Grover MD [facility] [place] [address] documented as of this encounter Visit Diagnoses Diagnosis PAD (peripheral artery disease) Peripheral vascular disease, unspecified Encounter for post surgical wound check Status post amputation of lesser toe of left foot documented in this encounter Care Teams Patient Financial Rep Relationship Specialty Start Date End Date None None PCP - General 05/27/24 09/17/24 documented as of this encounter
--- OUTSIDE RECORDS SUMMARY | 2024-10-31 15:41 | XMS_ITS | Encounter Summary ---
Author Organization [facility] [place] [address] Care Team Providers Care Newspaper Correspondent Name Role Phone None Primary Care Provider Unavailabl e Reason for Visit * Auth/Cert (Routine) Specialty Diagnoses / Procedures Referred By Contac t Referred To Contact Diagnoses CLTI Procedures PRO BYPASS GRAFT OTHR, FEM-TIBIAL @BYPASS GRAFT, FEM-ANT TIBIAL, -POST TIBIAL, -PERONEAL, -DP W\ SYNTHETIC CONDUIT (WRVU 23.66) Lisette Maldonado MD [facility] [place] [address] [facility] Referral ID Status Reason Start Date Expiration Date Visits Re quested Visits Authorized [id number] 1 1 Encounter Details Date Type Department Care Team (Late st Contact Info) Description 08/01/2024 7:28 AM EDT Anesthesia Event [place] [address] Cornelius Church MD [facility] DR ANEST[place] [address] Marko Mckeon CRNA [facility] [place] [address] Anesthesia Record Procedure Summary Procedure Name Responsible [...] by Lauren Zavala RN PIV 08/01/24; 0637; [id number] catheter system; 20 gauge; metacarpal vein (top [...] Removal Time: 11008/01/24 0741 by Marko Mckeon, STATISTICAL ENGINEER 08/01/24 1109 by Marko Mckeon CRNA Arterial Line 08/01/24; 0750; radi al artery, left; 20 gauge; continuous blood pressure monitoring, frequent blood gas measurement; Linda; Sterile Prep, Sterile Gloves; 08/01/24; 08/01/24 0750 by Marko Mckeon, STATISTICAL ENGINEER 08/01/24 1816 by Jeramy Escobar RN PIV 08/01/24; 0750; 18 g auge; cephalic vein (lateral side of arm), right; Lynnette; LDA not present upon assessment; 09/26/24; 1533 08/01/24 0750 by Marko Mckeon, STATISTICAL ENGINEER 09/26/24 1533 by Pamela Eli RN Urethral Catheter 08/01/24; 0758; Surg wei longer than 2 hours; indwelling double lumen catheter; 100% silicone; 14; inserted at [facility]; 1; 10; 10; (lube); drainage bag; [...] In the past 12 months has e [employer], gas, oil, or water [employer] threatened to shut off services in your [...] Procedure Summary Date: 08/01/24 Room / Location: [facility] OR [address] [place] [address] MAIN OR Anesthesia Start: 727 Anesthesia Stop: 1114 Procedure: @BYPASS GRAFT, FEM-ANT TIBIAL, -POST TIBIAL, -PERONEAL, -DP W\ SYNTHETIC CONDUIT (WRVU 23.66) (Left: Leg) Diagnosis: (CLTI) Surgeons: Lisette Maldonado MD Responsible Provider: Cornelius Church MD Anesthesia Type: general ASA Status: 3 All Anesthesia Providers: Anesthesiologist: Cornelius Church MD STATISTICAL ENGINEER: Marko Mckeon CRNA Vitals Value Taken Time BP 107/65 08/01/24 1315 Temp 36.5 ??C (97.7 ??F) 08/01/24 1315 Pulse 84 08/01/24 1324 Resp 19 08/01/24 1324 SpO2 98 % 08/01/24 1349 Pain Level 9 08/01/24 1331 Vitals shown include unfiled device data. Patient Location: PACU/LOCATED WITHIN [facility] Level of Consciousness: Awake and [...] 3.51) performed by Thony Garcia MD at [facility] MAIN OR ??? PRO CABG, ARTERY-VEIN, SINGLE 01/04/2012 @CABG, VENOUS & ARTERIAL GRAFT;SINGLE VEIN GRAFT performed by INNA TOVAR at [facility] MAIN OR ??? PRO ENDOSCOPY W/VIDEO-ASST VEIN HARVEST, CABG 01/04/2012 ENDOSCOPIC HARVEST VEIN(S) FOR CABG performed by INNA TOVAR at [facility] MAIN OR ??? VS ARTERIOGRAM LOWER EXTREMITY VASCULAR SURGERY 07/20/2024 VS Arteriogram Lower Extremity Vascular Surgery 07/20/2024 Taylor Ruiz MD [facility] INTERVENTIONL RAD Social History Tobacco [...] risks discussed with patient. Plan discussed with STATISTICAL ENGINEER. Anesthesia Screening documented in this encounter Plan of Treatment Upcoming Encounters Date Type Department Care Team (Late st Contact Info) Description 11/09/2024 1:30 PM EST Office [place] [address] Isabela Hayward, RETAIL SPECIALIST [facility] DR INF[place] [address] 11/10/2024 10:00 AM EST Office [place] [address] Dai Whitman APRN 11/21/2024 2:15 PM EST Office [place] [address] Dayanara Grover MD [facility] [place] [address] documented as of this encounter Visit Diagnoses [...] mg documented in this encounter Care Teams Newspaper Correspondent Relationship Specialty Start Date End Date None None PCP - General 05/27/24 09/17/24 documented as of this encounter
--- OUTSIDE RECORDS SUMMARY | 2024-10-31 15:41 | XMS_ITS | Encounter Summary ---
Author Organization [facility] [place] [address] Care Team Providers Care Diesel Scoop Operator Name Role Phone Charles Romero Primary [...] Info) Description 07/27/2024 Telephone [place] [address] Lisette Maldonado MD [facility] [place] [address] Peer To Peer (Per 5 day protocol [...] Recorded In the past 12 months has [facility] electric, gas, oil, or water company threatened [...] in the past 12 m [facility], were you homeless or living [...] PM EST Office [place] [address] Isabela Hayward, ETCHER PHOTOENGRAVING [facility] [place] [address] 11/10/2024 10:00 AM EST Office Visit [place] [address] Dai Whitman, RESHMA 11/21/2024 2:15 PM EST Office [place] [address] Dayanara Grover MD [facility] [place] [address] documented as of this encounter Visit Diagnoses Not on filedocumented in this encounter Care Teams Diesel Scoop Operator Relationship Specialty Start Date End Date Charles Romero [place] [place] [address] PCP - General Internal Medicine 09/18/24 documented as of this encounter
--- OUTSIDE RECORDS SUMMARY | 2024-10-31 15:41 | XMS_ITS | Encounter Summary ---
Author Organization [facility] [place] [address] Care Team Providers Care Aluminum Container Tester Name Role Phone None Primary Care Provider Unavailabl e Reason for Visit * Auth/Cert (Routine) Specialty Diagnoses / Procedures Referred By William t Referred To Contact Diagnoses CLTI Procedures PRO BYPASS GRAFT OTHR, FEM-TIBIAL @BYPASS GRAFT, FEM-ANT TIBIAL, -POST TIBIAL, -PERONEAL, -DP W\ SYNTHETIC CONDUIT (WRVU 23.66) Lisette Maldonado MD [facility] [place] [address] [facility] [place] Referral ID Status Reason Start Date Expiration Date Visits Re quested Visits Authorized [id number] 1 1 Encounter Details Date Type Department Care Team (Late st Contact Info) Description 08/01/2024 7:30 AM EDT - 08/01/2024 1:43 PM EDT [place] [address] Lisette Maldonado MD [facility] [place] [address] @BYPASS GRAFT, FEM-ANT TIBIAL, -POST TIBIAL, -PERONEAL, [...] drink = 0.6 oz pur e alcohol) [facility] Utilities Answer Date Recorded In the [...] in a snf (including now)? No 08/02/2024 IPV Inpatient Questions [...] and left foot pain who [place] [facility] [place] lower extremity [...] patient has been previously admitted to the [facility] Vascular Surgery service on [...] Process Instructions: There is no in-house vascular laborer pie bakery available on weeknights (5pm-8am), weekends, or holidays. IF THIS IS A REQUEST FOR AN EMERGENT STUDY DURING THOSE HOURS, please have the senior provider responsible for the patient page the Vascular Surgery Fellow/Senior Resident communications department head to discuss options. Scheduling Instructions: Questions: Graft description/location: s/p BL femoral endarterectomies with illiac stent grafts Indication for study/signs & symptoms: improved patency/flow Question to be answered: improved patency/flow Preferred location?: [facility] Referral to Home Health [REF34 Custom] As directed Process Instructions: If no progress note charted, please enter Clinical details in comments. Scheduling Instructions: Comments: Please evaluate Lux Dixon Jr. for admission to Home Health. [address] [place] [id number] (home) Date of : 1975 Inpatient DOCUMENTATION FOR VNA SERVICES (INCLUDING THOSE PATIENTS WITH MEDICARE COVERAGE REQUIRING HOME VNA SERVICES AND/OR HOSPICE SERVICES) PATIENT'S LOCATION: Lux Dixon Jr. [address] [facility] [address] (home) Cell: Telephone Information: Forest And Conservation Worker's Name: self In discussion with the attending physician, it is certified that this patient is under their care and that they, or a Nurse Practitioner, Clinical Nurse specialist or Physician Car Repossessor who is working directly with them, had [...] CARE AGENCY: [facility] [address] [place] [id number] START OF CARE: within 24-48 hours of [...] For any problems or questions please call [phone] For issues on weeknights after 5pm and weekends please call [phone] and ask for the Vascular Fellow communications department head. documented in this encounter Discharge Instructions * [...] For any problems or questions please call [phone] For issues on weeknights after 5pm and weekends please call [phone] and ask for the Vascular Fellow communications department head. documented in this encounter Medications at Time [...] and left foot pain who presents [place] [facility] [place] left iliofemoral endarterectomy [...] 3.51) performed by Thony Garcia MD at [facility] MAIN OR PRO BYPASS GRAFT OTHR, FEM-TIBIAL Left 08/01/2024 @BYPASS GRAFT, FEM-ANT TIBIAL, -POST TIBIAL, -PERONEAL, -DP W\ SYNTHETIC CONDUIT (WRVU 23.66) performed by Lisette Maldonado MD at [facility] MAIN OR PRO CABG, ARTERY-VEIN, SINGLE 01/04/2012 @CABG, VENOUS & ARTERIAL GRAFT;SINGLE VEIN GRAFT performed by INNA TOVAR at [facility] MAIN OR PRO ENDOSCOPY W/VIDEO-ASST VEIN HARVEST, CABG 01/04/2012 ENDOSCOPIC HARVEST VEIN(S) FOR CABG performed by INNA TOVAR at [facility] MAIN OR VS ARTERIOGRAM LOWER EXTREMITY VASCULAR SURGERY 07/20/2024 VS Arteriogram Lower Extremity Vascular Surgery 07/20/2024 Taylor Ruiz MD [facility] INTERVENTIONL RAD Active Non-Hospital Problems [...] ray PT, Doctor of Physical Therapy Pager: [phone] Physical Therapy Inpatient Rehabilitation Department * Maíra Carranza, INTERLOCKING TOWER OPERATOR - 08/03/2024 11:30 AM EDT Vascular Surgery Progress Note Lux Dixon Jr. is a 49 y.o. male with a history of CAD s/p CABG, DM, obesity, NSTEMI, HTN, HLD, depression, tobacco use, substance use and left foot pain who presents [place] [facility] [place] left iliofemoral endarterectomy [...] Nightly heparin (porcine) 5,000 Units Subcutaneous Q8H [facility] Operations This Hospitalization 08/01: Left iliofemoral endarterectomy Left femoral to below-knee popliteal artery bypass with 7mm ringed PTFE Interim - HDS, NAEO, pain well controlled, 100% trays, BM APPLICATION PACKAGING SPECIALIST - WBC 10.7 (11.2), Hgb 12.5 [...] pending PT/OT cory Carranza APRN 08/03/2024 Pager: [phone] * Alicja Montague MD - 08/02/2024 1:29 PM EDT Vascular Surgery Progress Note Patient ID Lux Dixon Jr. is a 49 y.o. male with a history of CAD s/p CABG, DM, obesity, NSTEMI, HTN, HLD, depression, tobacco use, substance use and left foot pain who presents [place] [facility] [place] left iliofemoral endarterectomy [...] and left foot pain who presents [place] [facility] for left lower extremity [...] 3.51) performed by Thony Garcia MD at [facility] MAIN OR PRO CABG, ARTERY-VEIN, SINGLE 01/04/2012 @CABG, VENOUS & ARTERIAL GRAFT;SINGLE VEIN GRAFT performed by INNA TOVAR at [facility] MAIN OR PRO ENDOSCOPY W/VIDEO-ASST VEIN HARVEST, CABG 01/04/2012 ENDOSCOPIC HARVEST VEIN(S) FOR CABG performed by INNA TOVAR at [facility] MAIN OR Social History Socioeconomic History Marital [...] 149 Dorsalis Pedis (Ankle) Artery 83 0.55 [place]-Biphasic Posterior Tibial (Ankle) Artery 87 0.57 Monophasic [...] and left foot pain who presents [place] [facility] [place] left lower extremity bypass. Will proceed with planned operation. -Consent signed, questions answered -Preop checklist complete Dennis Guzman MD Vascular Fellow PGY7, pager [phone] Associated attestation - Lisette Maldonado MD - [...] - 08/03/2024 2:40 PM EDT Home with [facility] CARE MANAGEMENT FINAL DISCHARGE NOTE Chart reviewed, care reviewed with primary team and at interdisciplinary rounds. Patient is medically ready for discharge to [facility]. Needs for Transition of Care: Plan for discharge is: Agency Referrals & Follow-up Care: Contact information for follow-up [place] [address] Transportation: family or friend will provide Functional status prior to admission: Independent Home Environment: Others in the home: sibling(s), other relative(s). Current Living Arrangements: home/apartment/condo. Accessibility Concerns:2 level home includng basement. Current Functional Ability: Assistive Equipment DME used at home: crutches Patient is insured through: Primary Insurance: [employer] MANAGED MEDICARE Payor: [employer] MA[employer]ED MEDICARE / Plan: [employer] MANAGED MEDICARE PPO / Product Type: *No [...] where referrals are placed. Provided patient with [facility] Star Quality Rating for Home care hand out. Patient requests referral to : [facility] [address] [place] [address] Expected date of discharge: 08/03. Referral routed to the Nutrition Tech for matching with agency/vendor and to provide [...] television smartphone Taken 08/01/20242126 Pain Management Interventions: vdmymv-fdq-hybif dosing utilized care clustered pain management plan [...] consult to Social Work Ordered at: 08/01/24 2332 Reason for Consult: Substance / alcohol abuse Reason for Consult? Patient has scored positive for Audit or DAST assessments Reason for Consult Substance / alcohol abuse Additional information Admitted to cocaine use Social Work Response: ANNEALING FURNACE OPERATOR reviewed chart. DAST score of 3. INTERLOCKING TOWER OPERATOR to see for DAST. However, ANNEALING FURNACE OPERATOR gave pt Consumer???s Guide for Substance Use Treatment in the [facility]. Pt refuses tx but accepted booklet to read. Follow Up Needed: Nothing further regarding this consult as INTERLOCKING TOWER OPERATOR will see pt due to DAST score. [...] through: Primary Insurance: [employer] MANAGED MEDICARE Payor: [employer] MANAGED MEDICARE / Plan: [employer] MANAGED MEDICARE [...] nurse, medical record, and Patient, Chart Review ANNEALING FURNACE OPERATOR Introduced self/reviewed role; services accepted. Admitted From: Home Reason for Hospitalization: Leg pain Past medical History: Past Medical History: Diagnosis Date Depression Hyperlipidemia Hypertension Narcolepsy Obesity Hospitalizations Within the Past 30 Days: planned readmission Current Decision-Making Capacity: Self If AD's have not been completed the following surrogate would be surrogate decision maker per [place] surrogate decision making law. (Only good for 180 days) Any patient receiving care in [place] must abide by [place] law. The hierarchy for surrogate decision making [...] (i) The agent with financial power of dimensional inspector or a conservator appointed in accordance with [...] homeless or living in a snf (including now)?: No In the past 12 [...] Current DME: [facility] Home Address confirmed as: [address] [place] [id number] Social & Family Supports: All names listed [...] Guide for Substance Use Treatment in the [facility]. Refuses sub tx but took the booklet to read over Health/Prescription Coverage: Primary Insurance: [employer] MEDICARE Payor: [employer] MANAGED MEDICARE / Plan: [facility] MANAGED MEDICARE PPO / Product Type: *No Product type* / Secondary Insurance: N/A ; Prescription Coverage: Yes Preferred Pharmacy: [facility] [place], [place] [id number] - [place], [place] - [address] [facility] [address] [facility] [address] [id number] - [place], [place] - [address] [facility] [address] [facility] [address] [place] Status: Patient is a : No Primary [...] and left foot pain who presents [place] [facility] for left lowerextremity bypass. Previous admission at [facility] (07/14-07/21). 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 Incision made at the PIP joint space, amputation performed at the transmetatarsal space. Per H&P note 07/14, patient had also been previously admitted to the [facility] Vascular Surgery service on [...] of this encounter: 101.6 kg (224 lb). [place] Body Weight (IBW) (kg): 75.45 Wt Readings [...] at bedside. Lux reports a good appetite APPLICATION PACKAGING SPECIALIST with 3 meals/day. Pt did not [...] during previous admission and enjoyed these - designer writer offered to send Glucerna as a lower carbohydrate option pt was agreeable to this(designer writer sent one today for pt to [...] an evening meal which is usually takeout (hob grinder or pizza). Drinks up to 18 cans of Mountain Dew/day or 1.5 gallons of milk daily. No data found. Nutrition Focused Physical Exam: Performed . Subcutaneous Fat Loss Orbital region: None present Upper arm region (triceps/biceps): Mild Thoracic and Lumbar regions (ribs, lower back, and maxillary line): None present Lean Muscle Loss [place] region (temporalis muscle): Mild Clavicle bone region [...] Diversional Activities: television smartphone Pain Management Interventions: oqgzab-hvy-fzsgo dosing utilized care clustered pain management plan [...] and ADLs]: scott Surveillance [facility]continuous indirect monitoring[facility] Patient-specific fall prevention interventions for sensory deficits [...] Maldonado MD - 08/01/2024 8:30 AM EDT [facility] Operative Note Patient Name: Lux Dixon Jr. : [id number] MR#: [id number] Case Date: 08/01/2024 Surgeon: Surgeons and Role: [...] foot pain with ulcers who presents to [facility] for left lower extremity [...] proximally and the SFA distally. Theexternal iliac, HEADER MACHINE OPERATOR and proximal SFA were endarterectomized [...] Office [place] [address] Isabela Hayward, INTERLOCKING TOWER OPERATOR [facility] [place] [address] 11/10/2024 10:00 AM EST Office [place] [phone] Dai Whitman APRN 11/21/2024 2:15 PM EST Office [place] [phone] Dayanara Grover MD [facility] [place] [address] Scheduled Referrals Name Type Priority Associated Diagnoses [...] 8:04 AM EDT Bypass Graft Othr, Fem-Tibial ([id number]) 08/01/2024 7:34 AM EDT CLTI POC, GLUCOSE Routine 08/01/2024 6:23 AM EDT BYPASS GRAFT, FEM-ANT TIBIAL, -POST TIBIAL, -PERONEAL, -DP W\ SYNTHETIC CONDUIT Routine 08/01/2024 6:03 AM EDT IMPLANTABLE DEVICES SCAN 08/01/2024 12:00 AM EDT documented in this encounter Results * POC, GLUCOSE (08/03/2024 12:27 PM EDT) Glucometer, POC 81 65 - 199 mg/dL 08/03/2024 12:27 PM EDT [facility] Comment:Supplemental ranges: <140 mg/dL before meals <180 mg/dL all other times of the day. Blood CAPILLARY BLOOD / Unknown 08/03/2024 12:27 PM EDT 08/03/2024 12:27 PM EDT Lisette Maldonado MD POINT OF CARE TEST ORDERABLES [facility] [place] [address] * POC, GLUCOSE (08/03/2024 8:06 AM EDT) Glucometer, POC 137 65 - 199 mg/dL 08/03/2024 8:06 AM EDT [facility] Comment:Supplemental ranges: <140 mg/dL before meals <180 mg/dL all other times of the day. Blood CAPILLARY BLOOD / Unknown 08/03/2024 8:06 AM EDT 08/03/2024 8:06 AM EDT Lisette Maldonado MD POINT OF CARE TEST ORDERABLES [facility] [place] [address] * Phosphorus (08/03/2024 4:41 AM EDT) [facility] Phosphorus 3.4 2.5 - 4.5 mg/dL 08/03/2024 5:22 AM EDT [facility] Blood VENOUS BLOOD SPECIMEN / Unknown IP Care Team Draw / Unknown 08/03/2024 4:41 AM EDT 08/03/2024 4:51 AM EDT Lisette Maldonado MD CHEMISTRY ORDERABL ES Performing Organization Address City/[facility]/ZIP Co de Phone Number [facility] [place] [address] * Magnesium (08/03/2024 4:41 AM EDT) [facility] Magnesium 0.81 0.69 - 1.07 mMol/L 08/03/2024 5:22 AM EDT [facility] Blood VENOUS BLOOD SPECIMEN / Unknown IP Care Team Draw / Unknown 08/03/2024 4:41 AM EDT 08/03/2024 4:51 AM EDT Lisette Maldonado MD CHEMISTRY ORDERABL ES Performing Organization Address City/[facility]/ZIP Co de Phone Number [facility] [place] [address] * (ABNORMAL) Basic Metabolic Panel (08/03/2024 4:41 AM EDT) [facility] Glucose 179 65 - 199 mg/dL 08/03/2024 6:51 AM EDT [facility] Comment:Glucose Concentratio n >=200 mg/dL plus symptoms is consistent with Diabetes Mellitus. Blood Urea Nitrogen 10 10 - 20 mg/dL 08/03/2024 6:51 AM EDT [facility] Creatinine 0.50(L) 0.80 - 1.50 mg/dL 08/03/2024 6:51 AM EDT [facility] Sodium 135 135 - 145 mMol/L 08/03/2024 6:51 AM EDT [facility] Potassium 3.9 3.5 - 5.0 mMol/L 08/03/2024 6:51 AM EDT [facility] Chloride 100 98 - 107 mMol/L 08/03/2024 6:51 AM EDT [facility] Carbon Dioxide 26 22 - 31 mMol/L 08/03/2024 6:51 AM EDT [facility] Anion Gap 9 5 - 15 mMol/L 08/03/2024 6:51 AM EDT [facility] Calcium 9.6 8.5 - 10.5 mg/dL 08/03/2024 6:51 AM EDT [facility] Est Glomerular Filtration Rate - Male 124 mL/min/1. 73 m?? 08/03/2024 6:51 AM EDT [facility] Comment: This patient's [...] EDT Lisette Maldonado MD CHEMISTRY ORDERABL ES [facility] [place] [address] * (ABNORMAL) CBC (with Diff) (08/03/2024 4:41 AM EDT) White Blood Cell 10.74(H) 4.00 - 9.50 x10(3)/mc L 08/03/2024 4:57 AM EDT [facility] Red Blood Cell 4.23(L) [...] Neutrophil % 71.7 % 08/03/2024 4:[address] [facility] Neutrophil Absolute (ANC) - Automated 7.71(H) 1.70 - 6.10 x10(3)/mc L 08/03/2024 4:[address] [facility] Lymph % 18.5 % 08/03/2024 4:57 AM EDT [facility] Lymph Absolute 1.99 0.90 - 3.20 x10(3)/mc L 08/03/2024 4:57 AM EDT [facility] Monocyte % 7.2 % 08/03/2024 4:57 AM EDT [facility] Monocyte Absolute 0.77 0.30 - 0.90 x10(3)/mc L 08/03/2024 4:57 AM EDT [facility] Eos % 1.5 % 08/03/2024 4:57 AM EDT [facility] Eos Absolute 0.16 0.00 - 0.40 x10(3)/mc L 08/03/2024 4:57 AM EDT [facility] Basophil % 0.6 % 08/03/2024 4:57 AM EDT [facility] Baso Absolute 0.06 0.00 - 0.10 x10(3)/mc L 08/03/2024 4:57 AM EDT [facility] Immature Gran % 0.5 % 4:57 AM EDT [facility] Immature Gran Absolute 0.05(H) 0.00 - 0.04 x10(3)/mc L 08/03/2024 4:57 AM EDT [facility] Blood VENOUS BLOOD SPECIMEN / Unknown IP Care Team Draw / Unknown 08/03/2024 4:41 AM EDT 08/03/2024 4:51 AM EDT Lisette Maldonado MD HEMATOLOGY ORDERAB LES [facility] [place] [address] * (ABNORMAL) POC, GLUCOSE (08/03/2024 3:58 AM EDT) [facility] Signature Glucometer, POC 200(H) 65 - 199 mg/dL 08/03/2024 3:58 AM EDT [facility] Comment:Supplemental ranges: <140 mg/dL before meals <180 mg/dL all other times of the day. Blood CAPILLARY BLOOD / Unknown 08/03/2024 3:58 AM EDT 08/03/2024 3:58 AM EDT Lisette Maldonado MD POINT OF CARE TEST ORDERABLES [facility] [place] [address] * POC, GLUCOSE (08/02/2024 11:06 PM EDT) Glucometer, POC 194 65 - 199 mg/dL 08/02/2024 11:07 PM EDT [facility] Comment:Supplemental ranges: <140 mg/dL before meals <180 mg/dL all other times of the day. Blood CAPILLARY BLOOD / Unknown 08/02/2024 11:06 PM EDT 08/02/2024 11:07 PM EDT Lisette Maldonado MD POINT OF CARE TEST ORDERABLES Performing Organization Address City/[facility]/ZIP Co de Phone Number [facility] [place] [address] * (ABNORMAL) POC, GLUCOSE (08/02/2024 7:46 PM EDT) Glucometer, POC 226(H) 65 - 199 mg/dL 08/02/2024 7:46 PM EDT [facility] Comment:Supplemental ranges: <140 mg/dL before meals <180 mg/dL all other times of the day. Blood CAPILLARY BLOOD / Unknown 08/02/2024 7:46 PM EDT 08/02/2024 7:46 PM EDT Lisette Maldonado MD POINT OF CARE TEST ORDERABLES Performing Organization Address City/[facility]/ZIP Co de Phone Number [facility] [place] [address] * (ABNORMAL) POC, GLUCOSE (08/02/2024 5:17 PM EDT) Glucometer, POC 236(H) 65 - 199 mg/dL 08/02/2024 5:17 PM EDT [facility] Comment:Supplemental ranges: <140 mg/dL before meals <180 mg/dL all other times of the day. Blood CAPILLARY BLOOD / Unknown 08/02/2024 5:17 PM EDT 08/02/2024 5:17 PM EDT Lisette Maldonado MD POINT OF CARE TEST ORDERABLES Performing Organization Address City/[facility] Co de Phone Number [facility] [place] [address] * (ABNORMAL) POC, GLUCOSE (08/02/2024 12:44 PM EDT) Glucometer, POC 228(H) 65 - 199 mg/dL 08/02/2024 12:45 PM EDT [facility] Comment:Supplemental ranges: <140 mg/dL before meals <180 mg/dL all other times of the day. Blood CAPILLARY BLOOD / Unknown 08/02/2024 12:44 PM EDT 08/02/2024 12:45 PM EDT Lisette Maldonado MD POINT OF CARE TEST ORDERABLES Performing Organization Address City/[facility]/ZIP Co de Phone Number [facility] [place] [address] * POC, GLUCOSE (08/02/2024 7:43 AM EDT) Glucometer, POC 160 65 - 199 mg/dL 08/02/2024 7:43 AM EDT [facility] Comment:Supplemental ranges: <140 mg/dL before meals <180 mg/dL all other times of the day. Blood CAPILLARY BLOOD / Unknown 08/02/2024 7:43 AM EDT 08/02/2024 7:43 AM EDT Lisette Maldonado MD POINT OF CARE TEST ORDERABLES [facility] [place] [address] * Phosphorus (08/02/2024 3:49 AM EDT) [facility] Phosphorus 3.3 2.5 - 4.5 mg/dL 08/02/2024 4:53 AM EDT [facility] Blood VENOUS BLOOD SPECIMEN / Unknown IP Care Team Draw / Unknown 08/02/2024 3:49 AM EDT 08/02/2024 4:24 AM EDT Lisette Maldonado MD CHEMISTRY ORDERABL ES Performing Organization Address [facility]/ZIP Co de Phone Number [facility] [place] [address] * Magnesium (08/02/2024 3:49 AM EDT) [facility] Magnesium 0.72 0.69 - 1.07 mMol/L 08/02/2024 6:53 AM EDT [facility] Blood VENOUS BLOOD SPECIMEN / Unknown IP Care Team Draw / Unknown 08/02/2024 3:49 AM EDT 08/02/2024 4:24 AM EDT Lisette Maldonado MD CHEMISTRY ORDERABL ES Performing Organization Address City/[facility]/ZIP Co de Phone Number [facility] [place] [address] * (ABNORMAL) Basic Metabolic Panel (08/02/2024 3:49 AM EDT) [facility] Glucose 136 65 - 199 mg/dL 08/02/2024 4:53 AM EDT [facility] Comment:Glucose Concentratio n >=200 mg/dL plus symptoms is consistent with Diabetes Mellitus. Blood Urea Nitrogen 11 10 - 20 mg/dL 08/02/2024 4:53 AM EDT [facility] Creatinine 0.56(L) 0.80 [...] EDT Lisette Maldonado MD CHEMISTRY ORDERABL ES [facility] [place] [address] * (ABNORMAL) CBC (with Diff) (08/02/2024 3:49 AM EDT) White Blood Cell 11.20(H) 4.00 - 9.50 x10(3)/mc L 08/02/2024 4:[address] [facility] Red Blood Cell 4.14(L) 4.58 - 5.54 x10(6)/mc L 08/02/2024 4:[address] [facility] Hemoglobin 12.0(L) 13.7 - 16.5 g/dL 08/02/2024 4:[address] [facility] Hematocrit 37.7(L) 40.5 - 48.5 % 08/02/2024 4:[address] [facility] Mean Cell Volume 91.1 82.9 - 93.1 fL 08/02/2024 4:[address] [facility] Mean Cell Hemoglobin 29.0 27.5 - 32.1 pg 08/02/2024 4:[address] [facility] Mean Cell Hemoglobin Concentration 31.8(L) 32.0 - 35.7 g/dL 08/02/2024 4:[address] [facility] Platelet 330 145 - 357 x10(3)/mc L 08/02/2024 4:[address] [facility] Mean Platelet Volume 10.1 7.6 - 12.9 fL 08/02/2024 4:[address] [facility] RDW Standard Deviation 44.7 36.0 - 45.0 fL 08/02/2024 4:[address] [facility] RDW coefficient of variation 13.4 11.4 - 13.8 % 08/02/2024 4:[address] [facility] NRBC% auto 0.0 % 08/02/2024 4:[address] [facility] NRBC Absolute <0.01 <0.01 x10(3)/mc L 08/02/2024 4:[address] [facility] Neutrophil % 71.9 % 08/02/2024 4:[address] [facility] Neutrophil Absolute (ANC) - Automated 8.04(H) 1.70 - 6.10 x10(3)/mc L 08/02/2024 4:30 AM EDT [facility] Lymph % 19.7 % 08/02/2024 4:30 AM EDT [facility] Lymph Absolute 2.21 0.90 - 3.20 x10(3)/mc L 08/02/2024 4:30 AM EDT [facility] Monocyte % 5.7 % 08/02/2024 4:30 AM EDT [facility] Monocyte Absolute 0.64 0.30 - 0.90 x10(3)/mc L 08/02/2024 4:30 AM EDT [facility] Eos % 1.6 % 08/02/2024 4:30 AM EDT [facility] Eos Absolute 0.18 0.00 - 0.40 x10(3)/mc L 08/02/2024 4:30 AM EDT [facility] Basophil % 0.7 % 08/02/2024 4:30 AM EDT [facility] Baso Absolute 0.08 0.00 - 0.10 x10(3)/mc L 08/02/2024 4:30 AM EDT [facility] Immature Gran % 0.4 % 4:30 AM EDT [facility] Immature Gran Absolute 0.05(H) 0.00 - 0.04 x10(3)/mc L 08/02/2024 4:30 AM EDT [facility] Blood VENOUS BLOOD SPECIMEN / Unknown IP Care Team Draw / Unknown 08/02/2024 3:49 AM EDT 08/02/2024 4:24 AM EDT Lisette Maldonado MD HEMATOLOGY ORDERAB LES [facility] [place] [address] * POC, GLUCOSE (08/02/2024 3:08 AM EDT) Glucometer, POC 151 65 - 199 mg/dL 08/02/2024 3:08 AM EDT [facility] Comment:Supplemental ranges: <140 mg/dL before meals <180 mg/dL all other times of the day. Blood CAPILLARY BLOOD / Unknown 08/02/2024 3:08 AM EDT 08/02/2024 3:08 AM EDT Lisette Maldonado MD POINT OF CARE TEST ORDERABLES Performing Organization Address City/[facility]/ZIP Co de Phone Number [facility] [place] [address] * POC, GLUCOSE (08/02/2024 12:07 AM EDT) Glucometer, POC 121 65 - 199 mg/dL 08/02/2024 12:07 AM EDT [facility] Comment:Supplemental ranges: <140 mg/dL before meals <180 mg/dL all other times of the day. Blood CAPILLARY BLOOD / Unknown 08/02/2024 12:07 AM EDT 08/02/2024 12:08 AM EDT Lisette Maldonado MD POINT OF CARE TEST ORDERABLES Performing Organization Address City/[facility] Co de Phone Number [facility] [place] [address] * (ABNORMAL) POC, GLUCOSE (08/01/2024 7:52 PM EDT) Glucometer, POC 234(H) 65 - 199 mg/dL 08/01/2024 7:52 PM EDT [facility] Comment:Supplemental ranges: <140 mg/dL before meals <180 mg/dL all other times of the day. Blood CAPILLARY BLOOD / Unknown 08/01/2024 7:52 PM EDT 08/01/2024 7:52 PM EDT Lisette Maldonado MD POINT OF CARE TEST ORDERABLES [facility] [place] [address] * POC, GLUCOSE (08/01/2024 4:28 PM EDT) Glucometer, POC 144 65 - 199 mg/dL 08/01/2024 4:30 PM EDT [facility] Comment:Supplemental ranges: <140 mg/dL before meals <180 mg/dL all other times of the day. Blood CAPILLARY BLOOD / Unknown 08/01/2024 4:28 PM EDT 08/01/2024 4:30 PM EDT Lisette Maldonado MD POINT OF CARE TEST ORDERABLES Performing Organization Address City/[facility] Co de Phone Number [facility] [place] [address] * (ABNORMAL) POC, GLUCOSE (08/01/2024 11:26 AM EDT) Glucometer, POC 208(H) 65 - 199 mg/dL 08/01/2024 11:26 AM EDT [facility] Comment:Supplemental ranges: <140 mg/dL before meals <180 mg/dL all other times of the day. Blood CAPILLARY BLOOD / Unknown 08/01/2024 11:26 AM EDT 08/01/2024 11:26 AM EDT Lisette Maldonado MD POINT OF CARE TEST ORDERABLES [facility] [place] [address] * POC, GLUCOSE (08/01/2024 10:17 AM EDT) Glucometer, POC 82 65 - 199 mg/dL 08/01/2024 10:18 AM EDT [facility] Comment:Supplemental ranges: <140 mg/dL before meals <180 mg/dL all other times of the day. Blood CAPILLARY BLOOD / Unknown 08/01/2024 10:17 AM EDT 08/01/2024 10:18 AM EDT Lisette Maldonado MD POINT OF CARE TEST ORDERABLES [facility] [place] [address] * (ABNORMAL) Blood Gas, Arterial POC (08/01/2024 8:04 AM EDT) pH, Arterial 7.36 7.35 - 7.45 08/01/2024 9:26 AM EDT [facility] PCO2, Arterial 43 35 - 45 mmHg 08/01/2024 9:26 AM EDT [facility] PO2, Arterial 211(H) 85 - 104 mmHg 08/01/2024 9:26 AM EDT [facility] Bicarbonate, Arterial 23.5 20.0 - 26.0 mmol/L 08/01/2024 9:26 AM EDT [facility] Base Excess, Arterial -2.1 -3.0 - 3.0 mmol/L 08/01/2024 9:26 AM EDT [facility] Hemoglobin, Arterial 12.9(L) 13.7 - 16.5 g/dL 08/01/2024 9:26 AM EDT [facility] Oxyhemoglobin, Arterial 96.6 94.0 - 97.0 % 08/01/2024 9:26 AM EDT [facility] Carboxyhemoglobin , Arterial 2.3 % 08/01/2024 9:26 AM EDT [facility] Comment: Nonsmokers: 0.5-1.5% COHB ?? Smokers: Variable ??but usually less than 10% ?? Toxic: 20-30% COHB ?? Lethal: Greater than 60% COHB Methemoglobin, Arterial 0.2 <=1.5 % 08/01/2024 9:26 AM EDT [facility] Sodium, Arterial 137 135 - 145 mmol/L 08/01/2024 9:26 AM EDT [facility] Potassium, Arterial 3.8 3.5 - 5.0 mmol/L 08/01/2024 9:26 AM EDT [facility] Chloride, Arterial 105 98 - 107 mmol/L 08/01/2024 9:26 AM EDT [facility] Lactate, Arterial 2.1 0.5 - 2.2 mmol/L 08/01/2024 9:26 AM EDT [facility] IONIZED CALCIUM, ARTERIAL 1.15 1.15 - 1.33 mmol/L 08/01/2024 9:26 AM EDT [facility] Glucose, Arterial 164 65 - 199 mg/dL 08/01/2024 9:26 AM EDT [facility] Comment:Glucose Concentratio n >=200 mg/dL plus symptoms is consistent with Diabetes Mellitus. Blood ARTERIAL BLOOD / Unknown 08/01/2024 8:04 AM EDT 08/01/2024 9:26 AM EDT Lisette Maldonado MD POINT OF CARE TEST ORDERABLES [facility] [place] [address] * (ABNORMAL) POC, GLUCOSE (08/01/2024 6:23 AM EDT) [facility] Signature Glucometer, POC 208(H) 65 - 199 mg/dL 08/01/2024 6:24 AM EDT [facility] Comment:Supplemental ranges: <140 mg/dL before meals <180 mg/dL all other times of the day. Blood CAPILLARY BLOOD / Unknown 08/01/2024 6:23 AM EDT 08/01/2024 6:25 AM EDT Lisette Maldonado MD POINT OF CARE TEST ORDERABLES [facility] [place] [address] * Scan Doc: Implantable Devices (08/01/2024 12:00 [...] on Wed08/01/24 at 1415, Until Discontinued, Routine 143 (Given - Provider: Jeramy Escobar RN)211 (Given [...] Jeramy Escobar, DAVID)1246 (Given - Provider: Jeramy Escobar RN)1718 (Given - Provider: Jeramy Escobar RN) insulin [...] Lauren Zavala RN) 0555 (Given - Provider: Lauern Zavala RN)1519 (Given - Provider: Jeramy Escobar [...] Escobar, DAVID)123 (Given - Provider: Jeramy Escobar, DAVID)2011 (Given - Provider: Lauren Zavala RN) 307 (Given - Provider: Lauren Zavala RN)08 (Given [...] RN)08 (See Alternative - Provider: Jeramy Escobar, DAVID)1237 (See Alternative - Provider: Jeramy Escobar RN)2011 (See Alternative - Provider: Lauren Zavala RN) 030 (See Alternative - Provider: Lauren Zavala RN)0822 (See Alternative - Provider: Jeramy Escobar, DAVID) oxyCODONE (Roxicodone) tablet 5 mg 5 mg, [...] Routine 1437 (Given - Provider: Jeramy Escobar, RN)2242 (Given - Provider: Lauren Zavala, RN) 0551 (Given - Provider: Lauren Zavala, RN)1450 [...] Routine documented in this encounter Care Teams [employer] Relationship Specialty Start Date End Date None None PCP - General 05/27/24 09/17/24 documented as of this encounter
--- OUTSIDE RECORDS SUMMARY | 2024-10-31 15:41 | XMS_ITS | Encounter Summary ---
Author Organization [facility] [place] [address] Care Team Providers Care Broaching Machine Set Up Operator Name Role Phone None Primary Care Provider Unavailabl e Reason for Referral * Home Health Care (Routine) - Authorized Specialty Diagnoses / Procedures Referred By William moses Referred To Contact Diagnoses Critical limb ischemia of left lower extremity María Carranza APRN [facility] [place] [address] [facility] & [address] [place] [address] Referral ID Status Reason Start Date Expiration Date Visits Requested Visits Authorized [id number] Authorized Consult, Test & Treat 08/03/2024 01/30/2025 999 999 Reason for Visit * Auth/Cert (Routine) Specialty Diagnoses / Procedures Referred By William moses Referred To Contact Diagnoses CLTI Procedures PRO BYPASS GRAFT OTHR, FEM-TIBIAL @BYPASS GRAFT, FEM-ANT TIBIAL, -POST TIBIAL, -PERONEAL, -DP W\ SYNTHETIC CONDUIT (WRVU 23.66) Lisette Maldonado MD [facility] [place] [address] [facility] Referral ID Status Reason Start Date Expiration Date Visits Re quested Visits Authorized [id number] 1 1 Encounter Details Date Type Department Care Team (Latest Contact Info) Description 08/01/2024 5:32 AM EDT - 08/03/2024 4:45 PM EDT Hospital Encounter Surgical Unit Level 4 Wing D at [facility] [place] [address] Lisette Maldonado MD [facility] [place] [address] Critical limb ischemia of left lower extremity; [...] e alcohol) [facility] Utilities Answer Date Recorded In the past 12 months has th e [employer], gas, oil, or water [employer] threatened to shut off services in [...] and left foot pain who presents to [facility] for left lower [...] patient has been previously admitted to the [facility] Vascular Surgery service [...] Process Instructions: There is no in-house vascular equipment operator/laborer available on weeknights (5pm-8am), weekends, or holidays. IF THIS IS A REQUEST FOR AN EMERGENT STUDY DURING THOSE HOURS, please have the senior provider responsible for the patient page the Vascular Surgery Fellow/Senior Resident television news video editor to discuss options. Scheduling Instructions: Questions: Graft description/location: s/p BL femoral endarterectomies with illiac stent grafts Indication for study/signs & symptoms: improved patency/flow Question to be answered: improved patency/flow Preferred location?: [facility] Clinics Referral to Home Health [REF34 Custom] As directed Process Instructions: If no progress note charted, please enter Clinical details in comments. Scheduling Instructions: Comments: Please evaluate Lux Dixon Jr. for admission to Home [facility]. [address] [place] [phone] (home) Date of : 1975 Inpatient DOCUMENTATION FOR VNA SERVICES (INCLUDING THOSE PATIENTS WITH MEDICARE COVERAGE REQUIRING HOME VNA SERVICES AND/OR HOSPICE SERVICES) PATIENT'S LOCATION: Lux Dixon Jr. [address] [facility] [id number] (home) Cell: Telephone Information: Horticultural Nursery Assistant's Name: self In discussion with the attending physician, it is certified that this patient is under their care and that they, or a Nurse Practitioner, Clinical Nurse specialist or Physician Mold Closer who is working directly with them, had [...] SACHIN bandage daily) HOME HEALTH CARE AGENCY: [facility]. [address] [place] [address] START OF CARE: within 24-48 hours of [...] For any problems or questions please call [phone] For issues on weeknights after 5pm and weekends please call [phone] and ask for the Vascular Fellow television news video editor. documented in this encounter Discharge Instructions * [...] For any problems or questions please call [phone] For issues on weeknights after 5pm and weekends please call [phone] and ask for the Vascular Fellow television news video editor. documented in this encounter Medications at Time [...] and left foot pain who presents to [facility] for left iliofemoral [...] Extremity Vascular Surgery 07/20/2024 Taylor Ruiz MD [facility] INTERVENTIONL RAD Active [...] ray PT, Doctor of Physical Therapy Pager: [phone] Physical Therapy Inpatient Rehabilitation Department * María Carranza, TRANSCRIPTION - 08/03/2024 11:30 AM EDT Vascular Surgery Progress Note Lux Dixon Jr. is a 49 y.o. male with a history of CAD s/p CABG, DM, obesity, NSTEMI, HTN, HLD, depression, tobacco use, substance use and left foot pain who presents to [facility] for left iliofemoral [...] Q24H insulin lispro 1-6 Units Subcutaneous Q4H [facility] insulin lispro 0-19 Units Subcutaneous TID WC aspirin EC 81 mg Oral Daily atorvastatin 80 mg Oral QPM losartan 50 mg Oral Daily metoprolol succinate XL 25 mg Oral Daily pantoprazole EC 40 mg Oral Daily protriptyline 10 mg Oral Q8H sodium chloride 0.9 % (flush) 5 mL Intravenous BID acetaminophen 975 mg Oral Q6H [facility] senna-docusate 2 tablet Oral BID insulin glargine (Lantus;Semglee) (100 unit/mL) subcutaneous injection 50 Units Subcutaneous Nightly heparin (porcine) 5,000 Units Subcutaneous Q8H [facility] Operations This Hospitalization 08/01: Left iliofemoral endarterectomy Left femoral to below-knee popliteal artery bypass with 7mm ringed PTFE Interim - HDS, NAEO, pain well controlled, 100% trays, 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 is a 49 y.o. male with a history of CAD s/p CABG, DM, obesity, NSTEMI, HTN, HLD, depression, tobacco use, substance use and left foot pain who presents to [facility] for left iliofemoral [...] Phase 2 criteria met. Report given to [facility] DAVID Deshpande. * Amy Almaraz RN - [...] and left foot pain who presents to [facility] for left lower [...] TOVAR at [facility] MAIN OR Social History Socioeconomic History [...] 149 Dorsalis Pedis (Ankle) Artery 83 0.55 Coleman-Biphasic Posterior Tibial (Ankle) Artery 87 0.57 Monophasic [...] and left foot pain who presents to [facility] for left lower extremity bypass. Will proceed with planned operation. -Consent signed, questions answered -Preop checklist complete Dennis Guzman MD Vascular Fellow PGY7, pager [phone] Associated attestation - Lisette Maldonado MD - [...] - 08/03/2024 2:40 PM EDT Home with [facility] CARE MANAGEMENT FINAL DISCHARGE NOTE Chart reviewed, care reviewed with primary team and at interdisciplinary rounds. Patient is medically ready for discharge to [facility]. Needs for Transition of Care: Plan for discharge is: Agency Referrals & Follow-up Care: Contact information for follow-up [address] [address] Transportation: family or friend will provide Functional status prior to admission: Independent Home Environment: Others in the home: sibling(s), other relative(s). Current Living Arrangements: home/apartment/condo. Accessibility Concerns:2 level home includng basement. Current Functional Ability: Assistive Equipment DME used at home: crutches Patient is insured through: Primary Insurance: [employer] MA[employer]GED MEDICARE Payor: [employer] in [place] MEDICARE / Plan: [employer] MA[employer]ED MEDICARE PPO / Product Type: *No [...] where referrals are placed. Provided patient with [facility] Star Quality Rating for Home care hand out. Patient requests referral to : [facility] [employer]. [address] [place] [address] Expected date of discharge: 08/03. Referral routed to the Security Threat Analyst for matching with agency/vendor and to provide [...] television smartphone Taken 08/01/20242126 Pain Management Interventions: [id number] dosing utilized care clustered pain management plan [...] consult to Social Work Ordered at: 08/01/24 4114 Reason for Consult: Substance / alcohol abuse Reason for Consult? Patient has scored positive for Audit or DAST assessments Reason for Consult Substance / alcohol abuse Additional information Admitted to cocaine use Social Work Response: FIRE BATTALION CHIEF reviewed chart. DAST score of 3. TRANSCRIPTION to see for DAST. However, FIRE BATTALION CHIEF gave pt Consumer???s Guide for Substance Use Treatment in the [facility]. Pt refuses tx but accepted booklet to read. Follow Up Needed: Nothing further regarding this consult as TRANSCRIPTION will see pt due to DAST score. [...] tbd Patient is insured through: Primary Insurance: [employer] MANAGED MEDICARE Payor: [employer]ED MEDICARE / Plan: [employer] MANAGED MEDICARE PPO / Product Type: *No [...] surrogate would be surrogate decision maker per [place] surrogate decision making law. (Only good for 180 days) Any patient receiving care in [place] must abide by [place] law. The hierarchy for surrogate decision making [...] (i) The agent with financial power of sports attorney or a conservator appointed in accordance with [facility] 464-A. (j) The guardian of the [...] In the past 12 months has the [employer], gas, oil, or water [employer] threatened to shut off services in [...] Current DME: [employer] Home Address confirmed as: [address] [place] [address] Social & Family Supports: All names listed [...] Guide for Substance Use Treatment in the [facility]. Refuses sub tx but took the booklet to read over Health/Prescription Coverage: Primary Insurance: [employer] MA[employer]GED MEDICARE Payor: [employer] MEDICARE / Plan: [employer] MA[employer]ED MEDICARE PPO / Product Type: *No Product type* / Secondary Insurance: N/A ; Prescription Coverage: Yes Preferred Pharmacy: [facility], [place] [id number] - [place], [place] - [address] [place] [address] [address] [facility] [address] [facility] - [place], [place] - [address] [address] Status: Patient is a : No Primary [...] and left foot pain who presents to [facility] for left lowerextremity bypass. Previous admission at [facility] (07/14-07/21). 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 Incision made at the PIP joint space, amputation performed at the transmetatarsal space. Per H&P note 07/14, patient had also been previously admitted to the [facility] Vascular Surgery service [...] of this encounter: 101.6 kg (224 lb). Corwith Body Weight (IBW) (kg): 75.45 Wt Readings [...] at bedside. 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 Pt did not provide [...] during previous admission and enjoyed these - technical writer and editor offered to send Glucerna as a lower carbohydrate option pt was agreeable to this(technical writer and editor sent one today for pt to trial). [...] an evening meal which is usually takeout (floor grinder or pizza). Drinks up to 18 cans of Mountain Dew/day or 1.5 gallons of milk daily. No data found. Nutrition Focused Physical Exam: Performed . Subcutaneous Fat Loss Orbital region: None present Upper arm region (triceps/biceps): Mild Thoracic and Lumbar regions (ribs, lower back, and maxillary line): None present Lean Muscle Loss Taoism region (temporalis muscle): Mild Clavicle bone region [...] Diversional Activities: television smartphone Pain Management Interventions: egsdqw-kwi-yqmxn dosing utilized care clustered pain management plan [...] and ADLs]: scott Surveillance [continuous indirect monitoring[facility] Patient-specific fall prevention interventions for sensory deficits [...] Maldonado MD - 08/01/2024 8:30 AM EDT [facility] Operative Note Patient Name: Lux Dixon Jr. : [id number] MR#: [id number] Case Date: 08/01/2024 Surgeon: Surgeons and Role: [...] foot pain with ulcers who presents to [facility] for left lower [...] proximally and the SFA distally. Theexternal iliac, SKIVER BLOCKERS and proximal SFA were endarterectomized in the [...] PM EST Office Visit [place] [address] Isabela Hayward, RESHMA [facility] DR [place] [address] 11/10/2024 10:00 AM EST Office Visit [place] [phone] Dai Whitman APRN 11/21/2024 2:15 PM EST Office [place] [phone] Dayanara Grover MD [facility] [place] [address] Scheduled Referrals Name Type Priority Associated Diagnoses [...] 8:04 AM EDT Bypass Graft Othr, Fem-Tibial ([id number]) 08/01/2024 7:34 AM EDT CLTI POC, GLUCOSE Routine 08/01/2024 6:23 AM EDT BYPASS GRAFT, FEM-ANT TIBIAL, -POST TIBIAL, -PERONEAL, -DP W\ SYNTHETIC CONDUIT Routine 08/01/2024 6:03 AM EDT IMPLANTABLE DEVICES SCAN 08/01/2024 12:00 AM EDT documented in this encounter Results * POC, GLUCOSE (08/03/2024 12:27 PM EDT) [facility] Signature Glucometer, POC 81 65 - 199 mg/dL 08/03/2024 12:27 PM EDT [facility] Comment:Supplemental ranges: <140 mg/dL before meals <180 mg/dL all other times of the day. Blood CAPILLARY BLOOD / Unknown 08/03/2024 12:27 PM EDT 08/03/2024 12:27 PM EDT Lisette Maldonado MD POINT OF CARE TEST ORDERABLES [facility] [place] [address] * POC, GLUCOSE (08/03/2024 8:06 AM EDT) Glucometer, POC 137 65 - 199 mg/dL 08/03/2024 8:06 AM EDT [facility] Comment:Supplemental ranges: <140 mg/dL before meals <180 mg/dL all other times of the day. Blood CAPILLARY BLOOD / Unknown 08/03/2024 8:06 AM EDT 08/03/2024 8:06 AM EDT Lisette Maldonado MD POINT OF CARE TEST ORDERABLES Performing Organization Address City/[facility]/ZIP Co de Phone Number [facility] [place] [address] * Phosphorus (08/03/2024 4:41 AM EDT) Phosphorus 3.4 2.5 - 4.5 mg/dL 08/03/2024 5:22 AM EDT [facility] Blood VENOUS BLOOD SPECIMEN / Unknown IP Care Team Draw / Unknown 08/03/2024 4:41 AM EDT 08/03/2024 4:51 AM EDT Lisette Maldonado MD CHEMISTRY ORDERABL ES Performing Organization Address City/[facility]/ZIP Co de Phone Number [facility] [place] [address] * Magnesium (08/03/2024 4:41 AM EDT) Magnesium 0.81 0.69 - 1.07 mMol/L 08/03/2024 5:22 AM EDT [facility] Blood VENOUS BLOOD SPECIMEN / Unknown IP Care Team Draw / Unknown 08/03/2024 4:41 AM EDT 08/03/2024 4:51 AM EDT Lisette Maldonado MD CHEMISTRY ORDERABL ES Performing Organization Address City/[facility]/ZIP Co de Phone Number [facility] [place] [address] * (ABNORMAL) Basic Metabolic Panel (08/03/2024 4:41 AM EDT) Glucose 179 65 - 199 mg/dL 08/03/2024 6:51 AM [facility] Comment:Glucose Concentratio n >=200 mg/dL plus symptoms is consistent with Diabetes Mellitus. Blood Urea Nitrogen 10 10 - 20 mg/dL 08/03/2024 6:51 AM [facility] Creatinine 0.50(L) 0.80 - 1.50 mg/dL 08/03/2024 6:51 AM [facility] Sodium 135 135 - 145 mMol/L 08/03/2024 6:51 AM [facility] Potassium 3.9 3.5 - 5.0 mMol/L 08/03/2024 6:51 AM [facility] Chloride 100 98 - 107 mMol/L 08/03/2024 6:51 AM [facility] Carbon Dioxide 26 22 - 31 mMol/L 08/03/2024 6:51 AM [facility] Anion Gap 9 5 - 15 mMol/L 08/03/2024 6:51 AM [facility] Calcium 9.6 8.5 - 10.5 mg/dL 08/03/2024 6:51 AM [facility] Est Glomerular Filtration Rate - Male 124 mL/min/1. 73 m?? 08/03/2024 6:51 AM [facility] Comment: This patient's estimated GFR [...] EDT Lisette Maldonado MD CHEMISTRY ORDERABL ES [facility] [place] [address] * (ABNORMAL) CBC (with Diff) (08/03/2024 4:41 AM EDT) White Blood Cell 10.74(H) 4.00 - 9.50 x10(3)/mc L 08/03/2024 4:57 AM EDT [facility] Red Blood Cell 4.23(L) 4.58 - 5.54 x10(6)/mc L 08/03/2024 4:57 AM EDT [facility] Hemoglobin 12.5(L) 13.7 - 16.5 g/dL 08/03/2024 4:57 AM T [facility] Hematocrit 38.5(L) 40.5 - 48.5 % 08/03/2024 4:57 AM EDT [facility] Mean Cell Volume 91.0 82.9 - 93.1 fL 08/03/2024 4:57 AM T [facility] Mean Cell Hemoglobin 29.6 27.5 - 32.1 pg 08/03/2024 4:57 AM EDT [facility] Mean Cell Hemoglobin Concentration 32.5 32.0 - 35.7 g/dL 08/03/2024 4:57 AM EDT [facility] Platelet 309 145 - 357 x10(3)/mc L 08/03/2024 4:57 AM EDT [facility] Mean Platelet Volume 9.7 7.6 - 12.9 fL 08/03/2024 4:57 AM [facility] RDW Standard Deviation 44.0 36.0 - 45.0 fL 08/03/2024 4:57 AM [facility] RDW coefficient of variation 13.3 11.4 - 13.8 % 08/03/2024 4:57 AM [facility] NRBC% auto 0.0 % 08/03/2024 4:57 AM [facility] NRBC Absolute <0.01 <0.01 x10(3)/mc L 08/03/2024 4:57 AM [facility] Neutrophil % 71.7 % 08/03/2024 4:57 AM [facility] Neutrophil Absolute (ANC) - Automated 7.71(H) 1.70 - 6.10 x10(3)/mc L 08/03/2024 4:57 AM [facility] Lymph % 18.5 % 08/03/2024 4:57 AM [facility] Lymph Absolute 1.99 0.90 - 3.20 x10(3)/mc L 08/03/2024 4:57 AM [facility] Monocyte % 7.2 % 08/03/2024 4:57 AM [facility] Monocyte Absolute 0.77 0.30 - 0.90 x10(3)/mc L 08/03/2024 4:57 AM [facility] Eos % 1.5 % 08/03/2024 4:57 AM [facility] Eos Absolute 0.16 0.00 - 0.40 x10(3)/mc L 08/03/2024 4:57 AM [facility] Basophil % 0.6 % 08/03/2024 4:57 AM [facility] Baso Absolute 0.06 0.00 - 0.10 x10(3)/mc L 08/03/2024 4:57 AM [facility] Immature Gran % 0.5 % 4:57 AM [facility] Immature Gran Absolute 0.05(H) 0.00 - 0.04 x10(3)/mc L 08/03/2024 4:57 AM EDT [facility] Blood VENOUS BLOOD SPECIMEN / Unknown IP Care Team Draw / Unknown 08/03/2024 4:41 AM EDT 08/03/2024 4:51 AM EDT Lisette Maldonado MD HEMATOLOGY ORDERAB LES Performing Organization Address City/[facility]/ZIP Co de Phone Number [facility] [place] [address] * (ABNORMAL) POC, GLUCOSE (08/03/2024 3:58 AM EDT) Glucometer, POC 200(H) 65 - 199 mg/dL 08/03/2024 3:58 AM EDT [facility] Comment:Supplemental ranges: <140 mg/dL before meals <180 mg/dL all other times of the day. Blood CAPILLARY BLOOD / Unknown 08/03/2024 3:58 AM EDT 08/03/2024 3:58 AM EDT Lisette Maldonado MD POINT OF CARE TEST ORDERABLES Performing Organization Address [facility] Co de Phone Number [facility] [place] [address] * POC, GLUCOSE (08/02/2024 11:06 PM EDT) Glucometer, POC 194 65 - 199 mg/dL 08/02/2024 11:07 PM EDT [facility] Comment:Supplemental ranges: <140 mg/dL before meals <180 mg/dL all other times of the day. Blood CAPILLARY BLOOD / Unknown 08/02/2024 11:06 PM EDT 08/02/2024 11:07 PM EDT Lisette Maldonado MD POINT OF CARE TEST ORDERABLES Performing Organization Address City/[facility]/ZIP Co de Phone Number [facility] [place] [address] * (ABNORMAL) POC, GLUCOSE (08/02/2024 7:46 PM EDT) Glucometer, POC 226(H) 65 - 199 mg/dL 08/02/2024 7:46 PM EDT [facility] Comment:Supplemental ranges: <140 mg/dL before meals <180 mg/dL all other times of the day. Blood CAPILLARY BLOOD / Unknown 08/02/2024 7:46 PM EDT 08/02/2024 7:46 PM EDT Lisette Maldonado MD POINT OF CARE TEST ORDERABLES [facility] [place] [address] * (ABNORMAL) POC, GLUCOSE (08/02/2024 5:17 PM EDT) Glucometer, POC 236(H) 65 - 199 mg/dL 08/02/2024 5:17 PM EDT [facility] Comment:Supplemental ranges: <140 mg/dL before meals <180 mg/dL all other times of the day. Blood CAPILLARY BLOOD / Unknown 08/02/2024 5:17 PM EDT 08/02/2024 5:17 PM EDT Lisette Maldonado MD POINT OF CARE TEST ORDERABLES [facility] [place] [address] * (ABNORMAL) POC, GLUCOSE (08/02/2024 12:44 PM EDT) Glucometer, POC 228(H) 65 - 199 mg/dL 08/02/2024 12:45 PM EDT [facility] Comment:Supplemental ranges: <140 mg/dL before meals <180 mg/dL all other times of the day. Blood CAPILLARY BLOOD / Unknown 08/02/2024 12:44 PM EDT 08/02/2024 12:45 PM EDT Lisette Maldonado MD POINT OF CARE TEST ORDERABLES Performing Organization Address City/[facility]/ZIP Co de Phone Number [facility] [place] [address] * POC, GLUCOSE (08/02/2024 7:43 AM EDT) Glucometer, POC 160 65 - 199 mg/dL 08/02/2024 7:43 AM EDT [facility] Comment:Supplemental ranges: <140 mg/dL before meals <180 mg/dL all other times of the day. Blood CAPILLARY BLOOD / Unknown 08/02/2024 7:43 AM EDT 08/02/2024 7:43 AM EDT Lisette Maldonado MD POINT OF CARE TEST ORDERABLES Performing Organization Address [facility] Co de Phone Number [facility] [place] [address] * Phosphorus (08/02/2024 3:49 AM EDT) Phosphorus 3.3 2.5 - 4.5 mg/dL 08/02/2024 4:53 AM EDT [facility] Blood VENOUS BLOOD SPECIMEN / Unknown IP Care Team Draw / Unknown 08/02/2024 3:49 AM EDT 08/02/2024 4:24 AM EDT Lisette Maldonado MD CHEMISTRY ORDERABL ES Performing Organization Address City/[facility]/ZIP Co de Phone Number [facility] [place] [address] * Magnesium (08/02/2024 3:49 AM EDT) Magnesium 0.72 0.69 - 1.07 mMol/L 08/02/2024 6:53 AM EDT [facility] Blood VENOUS BLOOD SPECIMEN / Unknown IP Care Team Draw / Unknown 08/02/2024 3:49 AM EDT 08/02/2024 4:24 AM EDT Lisette Maldonado MD CHEMISTRY ORDERABL ES [facility] [place] [address] * (ABNORMAL) Basic Metabolic Panel (08/02/2024 3:49 AM EDT) Glucose 136 65 - 199 mg/dL 08/02/2024 4:53 AM EDT [facility] Comment:Glucose Concentratio n >=200 mg/dL plus symptoms is consistent with Diabetes Mellitus. Blood Urea Nitrogen 11 10 - 20 mg/dL 08/02/2024 4:53 AM [facility] Creatinine 0.56(L) 0.80 - 1.50 mg/dL 08/02/2024 4:53 AM [facility] Sodium 138 135 - 145 mMol/L 08/02/2024 4:53 AM [facility] Potassium 3.7 3.5 - 5.0 mMol/L 08/02/2024 4:53 AM [facility] Chloride 102 98 - 107 mMol/L 08/02/2024 4:53 AM [facility] Carbon Dioxide 24 22 - 31 mMol/L 08/02/2024 4:53 AM [facility] Anion Gap 12 5 - 15 mMol/L 08/02/2024 4:53 AM [facility] Calcium 9.0 8.5 - 10.5 mg/dL 08/02/2024 4:53 AM [facility] Est Glomerular Filtration Rate - Male 120 mL/min/1. 73 m?? 08/02/2024 4:53 AM [facility] Comment: This patient's estimated GFR [...] EDT Lisette Maldonado MD CHEMISTRY ORDERABL ES [facility] [place] [address] * (ABNORMAL) CBC (with Diff) (08/02/2024 3:49 AM EDT) White Blood Cell 11.20(H) 4.00 - 9.50 x10(3)/mc L 08/02/2024 4:30 AM EDT [facility] Red Blood Cell 4.14(L) 4.58 - 5.54 x10(6)/mc L 08/02/2024 4:30 AM [facility] LABORATORY Hemoglobin 12.0(L) 13.7 - 16.5 g/dL 08/02/2024 4:30 AM [facility] Hematocrit 37.7(L) 40.5 - 48.5 % 08/02/2024 4:30 AM [facility] Mean Cell Volume 91.1 82.9 - 93.1 fL 08/02/2024 4:30 AM [facility] Mean Cell Hemoglobin 29.0 27.5 - 32.1 pg 08/02/2024 4:30 AM [facility] Mean Cell Hemoglobin Concentration 31.8(L) 32.0 - 35.7 g/dL 08/02/2024 4:30 AM [facility] Platelet 330 145 - 357 x10(3)/mc L [facility] Mean Platelet Volume 10.1 7.6 - 12.9 fL 08/02/2024 4:30 AM [facility] RDW Standard Deviation 44.7 36.0 - 45.0 fL 08/02/2024 4:30 AM [facility] RDW coefficient of variation 13.4 11.4 - 13.8 % 08/02/2024 4:30 AM [facility] NRBC% auto 0.0 % 08/02/2024 4:30 AM [facility] NRBC Absolute <0.01 <0.01 x10(3)/mc L 08/02/2024 4:30 AM [facility] Neutrophil % 71.9 % 08/02/2024 4:30 AM [facility] Neutrophil Absolute (ANC) - Automated 8.04(H) 1.70 - 6.10 x10(3)/mc L 08/02/2024 4:30 AM [facility] Lymph % 19.7 % 08/02/2024 4:30 AM [facility] Lymph Absolute 2.21 0.90 - 3.20 x10(3)/mc L 08/02/2024 4:30 AM [facility] Monocyte % 5.7 % 08/02/2024 4:30 AM [facility] Monocyte Absolute 0.64 0.30 - 0.90 x10(3)/mc L 08/02/2024 4:30 AM [facility] Eos % 1.6 % 08/02/2024 4:30 AM [facility] Eos Absolute 0.18 0.00 - 0.40 x10(3)/mc L 08/02/2024 4:30 AM [facility] Basophil % 0.7 % 08/02/2024 4:30 AM [facility] Baso Absolute 0.08 0.00 - 0.10 x10(3)/mc L 08/02/2024 4:30 AM [facility] Immature Gran % 0.4 % 4:30 AM EDT [facility] Immature Gran Absolute 0.05(H) 0.00 - 0.04 x10(3)/mc L 08/02/2024 4:30 AM EDT [facility] Blood VENOUS BLOOD SPECIMEN / Unknown IP Care Team Draw / Unknown 08/02/2024 3:49 AM EDT 08/02/2024 4:24 AM EDT Lisette Maldonado MD HEMATOLOGY ORDERAB LES [facility] [place] [address] * POC, GLUCOSE (08/02/2024 3:08 AM EDT) Glucometer, POC 151 65 - 199 mg/dL 08/02/2024 3:08 AM EDT [facility] Comment:Supplemental ranges: <140 mg/dL before meals <180 mg/dL all other times of the day. Blood CAPILLARY BLOOD / Unknown 08/02/2024 3:08 AM EDT 08/02/2024 3:08 AM EDT Lisette Maldonado MD POINT OF CARE TEST ORDERABLES Performing Organization Address City/[facility]/ZIP Co de Phone Number [facility] [place] [address] * POC, GLUCOSE (08/02/2024 12:07 AM EDT) Glucometer, POC 121 65 - 199 mg/dL 08/02/2024 12:07 AM EDT [facility] Comment:Supplemental ranges: <140 mg/dL before meals <180 mg/dL all other times of the day. Blood CAPILLARY BLOOD / Unknown 08/02/2024 12:07 AM EDT 08/02/2024 12:08 AM EDT Lisette Maldonado MD POINT OF CARE TEST ORDERABLES [facility] [place] [address] * (ABNORMAL) POC, GLUCOSE (08/01/2024 7:52 PM EDT) Glucometer, POC 234(H) 65 - 199 mg/dL 08/01/2024 7:52 PM EDT [facility] Comment:Supplemental ranges: <140 mg/dL before meals <180 mg/dL all other times of the day. Blood CAPILLARY BLOOD / Unknown 08/01/2024 7:52 PM EDT 08/01/2024 7:52 PM EDT Lisette Maldonado MD POINT OF CARE TEST ORDERABLES Performing Organization Address City/[facility]/ZIP Co de Phone Number [facility] [place] [address] * POC, GLUCOSE (08/01/2024 4:28 PM EDT) Glucometer, POC 144 65 - 199 mg/dL 08/01/2024 4:30 PM EDT [facility] Comment:Supplemental ranges: <140 mg/dL before meals <180 mg/dL all other times of the day. Blood CAPILLARY BLOOD / Unknown 08/01/2024 4:28 PM EDT 08/01/2024 4:30 PM EDT Lisette Maldonado MD POINT OF CARE TEST ORDERABLES [facility] [place] [address] * (ABNORMAL) POC, GLUCOSE (08/01/2024 11:26 AM EDT) Glucometer, POC 208(H) 65 - 199 mg/dL 08/01/2024 11:26 AM EDT [facility] Comment:Supplemental ranges: <140 mg/dL before meals <180 mg/dL all other times of the day. Blood CAPILLARY BLOOD / Unknown 08/01/2024 11:26 AM EDT 08/01/2024 11:26 AM EDT Lisette Maldonado MD POINT OF CARE TEST ORDERABLES [facility] [place] [address] * POC, GLUCOSE (08/01/2024 10:17 AM EDT) Glucometer, POC 82 65 - 199 mg/dL 08/01/2024 10:18 AM EDT [facility] Comment:Supplemental ranges: <140 mg/dL before meals <180 mg/dL all other times of the day. Blood CAPILLARY BLOOD / Unknown 08/01/2024 10:17 AM EDT 08/01/2024 10:18 AM EDT Lisette Maldonado MD POINT OF CARE TEST ORDERABLES [facility] [place] [address] * (ABNORMAL) Blood Gas, Arterial POC (08/01/2024 8:04 AM EDT) pH, Arterial 7.36 7.35 - 7.45 08/01/2024 9:26 AM EDT [facility] PCO2, Arterial 43 35 - 45 mmHg 08/01/2024 9:26 AM EDT [facility] PO2, Arterial 211(H) 85 - 104 mmHg 08/01/2024 9:26 AM EDT [facility] Bicarbonate, Arterial 23.5 20.0 - 26.0 mmol/L 08/01/2024 9:26 AM EDT [facility] Base Excess, Arterial -2.1 -3.0 - 3.0 mmol/L 08/01/2024 9:26 AM EDT [facility] Hemoglobin, Arterial 12.9(L) 13.7 - 16.5 g/dL 08/01/2024 9:26 AM EDT [facility] Oxyhemoglobin, Arterial 96.6 94.0 - 97.0 % 08/01/2024 9:26 AM EDT [facility] Carboxyhemoglobin , Arterial 2.3 % 08/01/2024 9:26 AM EDT [facility] Comment: Nonsmokers: 0.5-1.5% COHB ?? Smokers: Variable ??but usually less than 10% ?? Toxic: 20-30% COHB ?? Lethal: Greater than 60% COHB Methemoglobin, Arterial 0.2 <=1.5 % 08/01/2024 9:26 AM EDT [facility] Sodium, Arterial 137 135 - 145 mmol/L 08/01/2024 9:26 AM EDT [facility] Potassium, Arterial 3.8 3.5 - 5.0 mmol/L 08/01/2024 9:26 AM EDT [facility] Chloride, Arterial 105 98 - 107 mmol/L 08/01/2024 9:26 AM EDT [facility] Lactate, Arterial 2.1 0.5 - 2.2 mmol/L 08/01/2024 9:26 AM EDT [facility] IONIZED CALCIUM, ARTERIAL 1.15 1.15 - 1.33 mmol/L 08/01/2024 9:26 AM EDT [facility] Glucose, Arterial 164 65 - 199 mg/dL 08/01/2024 9:26 AM EDT [facility] Comment:Glucose Concentratio n >=200 mg/dL plus symptoms is consistent with Diabetes Mellitus. Blood ARTERIAL BLOOD / Unknown 08/01/2024 8:04 AM EDT 08/01/2024 9:26 AM EDT Lisette Mladonado MD POINT OF CARE TEST ORDERABLES [facility] [place] [address] * (ABNORMAL) POC, GLUCOSE (08/01/2024 6:23 AM EDT) Glucometer, POC 208(H) 65 - 199 mg/dL 08/01/2024 6:24 AM EDT [facility] Comment:Supplemental ranges: <140 mg/dL before meals <180 mg/dL all other times of the day. Blood CAPILLARY BLOOD / Unknown 08/01/2024 6:23 AM EDT 08/01/2024 6:25 AM EDT Lisette Maldonado MD POINT OF CARE TEST ORDERABLES [facility] [place] [address] * Scan Doc: Implantable Devices (08/01/2024 12:00 [...] 250 mL/hr, Intravenous, ONCE, 1 dose, On Tu08/01/24 at 1445 New Bag 08/01/2024 2:46 PM [...] at 1328, Until Wed08/03/24 at 1845, Pain, severe pain (7-10), If [...] Jeramy Escobar RN)1518 (Given - Provider: Jeramy Escobar, DAVID) aspirin EC tablet 81 mg 81 [...] Discontinued, Routine 1437 (Given - Provider: Jeramy Escobar, DAVID)2113 (Given - Provider: Isabel Smart RN) 0551 (Given - Provider: Lauren Zavala, DAVID)1450 (Given - Provider: Jeramy Escobar, DAVID)2209 (Given - Provider: Lauren Zavala, RN) 0555 (Given - Provider: Lauren Zavala, RN) insulin [...] hours., Routine 1638 (Given - Provider: Jeramy Escobar, RN)2058 (Given - Provider: Lauren Zavala, DAVID) [...] Routine 0000 (Not Given - Provider: Lauren Zavala, DAVID - Reason: Order parameters not met)0400 (Given [...] Zavala, DAVID) 0405 (Given - Provider: Lauren Zavala RN)0800 (Hold - Provider: Jeramy Escobar RN - Reason: Contraindicated)1200 (Not Given - Provider: Jeramy Escobar RN - Reason: Contraindicated)1600 (Due) lactated Ringers 1,000 mL IV bolus (COMPLETED) at 250 mL/hr, Intravenous, ONCE, 1 dose, On Wed08/01/24 at 1445 1446 (New Bag - Provider: Jeramy Escobar RN)1846 (Stopped - Provider: Jeramy Escobar, DAVID) lidocaine (Lidoderm) 5% patch 1 patch 1 [...] 1437 (Given - Provider: Jeramy Escobar RN) 08 (Given - Provider: Jeramy Escobar RN) 08 (Given - Provider: Jeramy Escobar RN) potassium [...] Jeramy Escobar RN)2209 (Given - Provider: Lauren M Lucas, RN) 0555 (Given - Provider: Lauren Zavala RN)1519 (Given - Provider: Jeramy Escobar RN) rivaroxaban (Xarelto) tablet 20 mg 20 mg, Oral, DAILY, First dose on Angelita 08/03/24 at 1200, Until Discontinued, Routine, rivaroxaban [...] Routine 1446 (Given - Provider: Jeramy Escobar RN)211 (Given - Provider: Isabel Smart RN) 09 (Not Given - Provider: Jeramy Escobar RN - Reason: Contraindicated)2017 (Given - Provider: Lauren Zavala RN) 0822 [...] Wed08/01/24 at 1359, Until Wed08/03/24 at 1845, Opioid Reversal, Naloxone (NARCAN) 0.2 [...] at 1328, Until Wed08/03/24 at 1845, Pain, severe pain (7-10), If multiple routes of administration ordered, oral route first line., Recovery (Recovery-Hospital Unit), Routine 1331 (Given - Provider: Shannon Haney RN)2126 (Given - Provider: Lauren Zavala RN) 301 (Given - Provider: Lauren Zavala RN)0825 (Given - Provider: Jeramy Escobar, DAVID)123 (Given - Provider: Jeramy Escobar RN)2011 (Given - Provider: Lauren Zavala RN) 030 (Given - Provider: Lauren Zavala RN)0822 (Given [...] Zavala RN)08 (See Alternative - Provider: Jeramy Escobar RN)123 (See Alternative - Provider: Jeramy Escobar RN)2011 [...] Zavala, RN)1450 (Given - Provider: Jeramy Escobar, RN)2211 (Given - Provider: Lauren Zavala, RN) 0555 (Given - Provider: Lauren Zavala, RN) polyethylene glycoL (Miralax) packet 17 g(Linked [...] Routine documented in this encounter Care Teams Broaching Machine Set Up Operator Relationship Specialty Start Date End Date None None PCP - General 05/27/24 09/17/24 documented as of this encounter
--- OUTSIDE RECORDS SUMMARY | 2024-10-31 15:41 | XMS_ITS | Encounter Summary ---
Author Organization [facility] [place] [address] Care Team Providers Care Muck Miner Name Role Phone None Primary Care Provider Unavailabl e Encounter Details Date Type Department Care Team (Late st Contact Info) Description 09/06/2024 Telephone [place] [phone] Fallon Lemus RN Social History Tobacco Use Types Packs/Day Years Used Date Smoking Tobacco: Every Day Cigarettes 1 25 Started: 12/28/1986; Last attempted to quit: 12/28/2011 Smokeless Tobacco: Never Alcohol Use Standard Drinks/Week Comments No 0 (1 standard drink = 0.6 oz pur e alcohol) [facility] Utilities Answer Date Recorded In the past 12 months has [facility] [employer], gas, oil, or water [employer] threatened to shut off services in your [...] in a assisted (including now)? No 08/02/2024 DH IPV Inpatient [...] EDT Incoming call from Luis Enrique with [facility] reporting that 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 Luis Enrique reported there is a dry, yellowish brown scab over the area. No redness or drainage. Lux 5th toe nail has fungus growing under it. Luis Enrique reported he has advised Lux to see a fleet dispatch manager for care for the fifth toe nail. [...] any new orders would be faxed to [facility] at [phone]. Luis Enrqiue verbalized understanding. DAVID Viverosstatistical reporting analyst [facility] documented in this encounter Plan of Treatment Upcoming Encounters Date Type Department Care Team (Late st Contact Info) Description 11/09/2024 1:30 PM EST Office Visit [place] [phone] Isabela Hayward, STRAIGHT KNIFE MACHINE CUTTER [facility] INFECTIOUS DISEASE [place] [id number] 11/10/2024 10:00 AM EST Office Visit [place] [address] Dai Whitman, STRAIGHT KNIFE MACHINE CUTTER 11/21/2024 2:15 PM EST Office Visit [place] [phone] Dayanara Grover MD [facility] DR ENDOCRINOLOGY DEPT [place], [place] [id number] documented as of this encounter Visit Diagnoses Not on filedocumented in this encounter Care Teams Muck Miner Relationship Specialty Start Date End Date None None PCP - General 05/27/24 09/17/24 documented as of this encounter
--- OUTSIDE RECORDS SUMMARY | 2024-10-31 15:41 | XMS_ITS | Encounter Summary ---
Author Organization [facility] Address [facility] [place] [address] Care Team Providers Care Carpet Measurer Name Role Phone None Primary Care Provider Unavailabl e Reason for Referral * Diagnostic Test (Routine) - New Request Specialty Diagnoses / Procedures Referred By Contac t Referred To Contact Diagnoses PAD (peripheral artery disease) Procedures ELEN, legs, multiple levels Marko Dickson MD [facility] [place] [address] [facility] V[facility] Lab [address] [place] [phone] Referral ID Status Reason Start Date Expiration Date Visits Requested Visits Authorized [id number] New Request Specialty Service Requested 4 08/28/2025 1 1 * Diagnostic Test (Routine) - Pending Review Specialty Diagnoses / Procedures Referred By Contac t Referred To Contact Diagnoses PAD (peripheral artery disease) Procedures Unilat Bypass Graft Assess Marko Dickson MD [facility] [address] [facility] Lab [address] [place] [phone] Referral ID Status Reason Start Date Expiration Date Visits Requested Visits Authorized [id number] Pending Review Specialty Service Requested 4 08/28/2025 1 1 Encounter Details Date Type Department Care Team (Late st Contact Info) Description 08/28/2024 2:00 PM EDT Office Visit Vascular Surgery at [facility] [place] [id number] Marko Dickson MD [facility] [place] [address] PAD (peripheral artery disease) Social History Tobacco Use Types Packs/Day Years Used Date Smoking Tobacco: Every Day Cigarettes 12 02 Started: 12/28/1986; Last attempted to quit: 12/28/2011 Smokeless Tobacco: Never Alcohol Use Standard Drinks/Week Comments No 0 (1 standard drink = 0.6 oz pur e alcohol) [facility] Utilities Answer Date Recorded In [...] any time in the past 12 m [facility], were you homeless or living in a care home (including now)? No 08/02/2024 [facility] Inpatient Questions Answer Date Recorded Does Anyone [...] 07/19/24 L 2nd amp (ERIC) 08/01/24 L PRODUCE SHIPPER TEA, L PRODUCE SHIPPER to BK pop with PTFE (ERIC) History [...] Text Report Department: Vascular Surgery Lab Patient: [id number] (GEOVANNA ARAYA) CPT: 63125 Referring Physician: DAGO SNIDER Phone: Indications: s/p [...] s/p L 2nd toe amp and L PRODUCE SHIPPER TEA with PRODUCE SHIPPER to BK Pop bypass with PTFE. - cont asa/xarelto - cont off loading shoe, and keeping foot clean and dry - sutures removed from 2nd toe amp site - f/u 6months with repeat duplex US documented in this encounter Plan of Treatment Upcoming Encounters Date Type Department Care Team (Late Contact Info) Description 11/09/2024 1:30 PM EST Office Visit [place] [address] Isabela Hayward, RESISTOR INSPECTOR [facility] [place] [address] 11/10/2024 10:00 AM EST Office Visit [place] [phone] Dai Whitman, RESHMA 11/21/2024 2:15 PM EST Office Visit [place] [phone] Dayanara Grover MD [facility] [place] [address] documented as of this encounter Visit Diagnoses Diagnosis PAD (peripheral artery disease) Peripheral vascular disease, unspecified documented in this encounter Care Teams Carpet Measurer Relationship Specialty Start Date End Date None None PCP - General 05/27/24 09/17/24 documented as of this encounter
--- OUTSIDE RECORDS SUMMARY | 2024-10-31 15:41 | XMS_ITS | Encounter Summary ---
Author Organization [facility] [place] [address] Care Team Providers Care Proc Tech Name Role Phone None Primary Care Provider Unavailabl e Reason for Referral * Diagnostic Test (Routine) - New Request Specialty Diagnoses / Procedures Referred By William moses Referred To Contact Diagnoses Critical limb ischemia of left lower extremity Procedures Unilat Bypass Graft Assess Dago White APRN [facility] [place] [address] [facility] Vascular Lab [address] [place] [address] Referral ID Status Reason Start Date Expiration Date Visits Requested Visits Authorized [id number] New Request Specialty Service Requested 4 08/28/2025 1 1 Encounter Details Date Type Department Care Team (Late st Contact Info) Description 08/28/2024 Orders [place] [phone] Dago White APRN [facility] [place] [address] Critical limb ischemia of left lower extremity Social History Tobacco Use Types Packs/Day Years Used Date Smoking Tobacco: Every Day Cigarettes 1 25 Started: 12/28/1986; Last attempted to quit: 12/28/2011 Smokeless Tobacco: Never Alcohol Use Standard Drinks/Week Comments No 0 (1 standard drink = 0.6 oz pur e alcohol) [facility] Utilities Answer Date Recorded In the [...] any time in the past 12 m [facility], were you homeless or living in a [...] PM EST Office [place] [address] Isabela Hayward, RESHMA [facility] [place] [address] 11/10/2024 10:00 AM EST Office [place] [address] Dai Whitman APRN 11/21/2024 2:15 PM EST Office [place] [phone] Dayanara Grover MD [facility] [place] [address] documented as of this encounter Results * Unilat Bypass Graft Assess (08/28/2024 12:55 PM EDT) VB Text Report Department: Vascular Surgery Lab Patient: [id number] (GEOVANNA ARAYA) CPT: [id number] Referring Physician: DAGO SNIDER ?? Phone: Indications: [...] extremity documented in this encounter Care Teams Proc Tech Relationship Specialty Start Date End Date None None PCP - General 05/27/24 09/17/24 documented as of this encounter
--- OUTSIDE RECORDS SUMMARY | 2024-10-31 15:41 | XMS_ITS | Encounter Summary ---
[place] [address] Care Team Providers Care Client Engagement Manager Name Role Phone None Primary Care [...] of left lower extremity. Vibha Benson APRN [facility] [place] [address] [facility] [address] [place] [phone] Referral ID Status Reason Start Date Expiration Date V isits Requested Visits Authorized [id number] Closed Consult, Test & Treat 08/28/2024 08/28/2025 1 1 Encounter Details Date Type Department Care Team (Late st Contact Info) Description 08/28/2024 Orders [place] [address] Vibha Benson APRN [facility] [place] [address] Critical limb ischemia of left lower extremity Social History Tobacco Use Types Packs/Day Years Used Date Smoking Tobacco: Every Day Cigarettes 12 02 Started: 12/28/1986; Last attempted to quit: 12/28/2011 Smokeless Tobacco: Never Alcohol Use Standard Drinks/Week Comments No 0 (1 standard drink = 0.6 oz pur e alcohol) [facility] Utilities Answer Date Recorded In the past [...] any time in the past 12 m [facility], were you homeless or [...] PM EST Office [place] [address] Isabela Hayward, STAVE BLOCK ROLLER [facility] [place] [address] 11/10/2024 10:00 AM EST Office [place] [address] Dai Whitman, RESHMA 11/21/2024 2:15 PM EST Office [place] [address] Dayanara Grover MD [facility] [place] [address] Scheduled Referrals Name Type Priority Associated Diagnoses Order Schedule Referral to Cardiology Outpatient Referral Urgent Critical limb ischemia of left lower extremity Ordered: 08/28/2024 documented as of this encounter Visit Diagnoses Diagnosis Critical limb ischemia of left lower extremity documented in this encounter Care Teams Client Engagement Manager Relationship Specialty Start Date End Date None None PCP - General 05/27/24 09/17/24 documented as of this encounter
--- OUTSIDE RECORDS SUMMARY | 2024-10-31 15:41 | XMS_ITS | Encounter Summary ---
Author Organization [facility] [place] [address] Care Team Providers Care Straightener Gun Parts Name Role Phone None Primary Care Provider [...] drink = 0.6 oz pur e alcohol) [facility] Utilities Answer Date Recorded In [...] time in the past [address] [facility], were you homeless or living in a prison (including now)? No 08/02/2024 IPV Inpatient Questions [...] PM EST Office [place] [address] Isabela Hayward APRN [facility] DR [place] [address] 11/10/2024 10:00 AM EST Office [place] [address] Dai Whitman APRN 11/21/2024 2:15 PM EST Office [place] [address] Dayanara Grover MD [facility] [place] [address] documented as of this encounter Visit Diagnoses Not on filedocumented in this encounter Care Teams Straightener Gun Parts Relationship Specialty Start Date End Date None None PCP - General 05/27/24 09/17/24 documented as of this encounter
--- OUTSIDE RECORDS SUMMARY | 2024-10-31 15:41 | XMS_ITS | Encounter Summary ---
Author Organization [facility] [place] [address] Care Team Providers Care Filter Tank Tender Helper Head Name Role Phone None Primary Care Provider Unavailabl e Encounter Details Date Type Department Care Team (Late st Contact Info) Description 07/24/2024 Telephone [place] [phone] Fallon Lemus RN Social History Tobacco Use [...] PM EST Office [place] [phone] Isabela Hayward, WARP DRAWER [facility] [place] [address] 11/10/2024 10:00 AM EST Office [place] [phone] Dai Whitman, WARP DRAWER 11/21/2024 2:15 PM EST Office [place] [phone] Dayanara Grover MD [facility] DR [place] [address] documented as of this encounter Visit Diagnoses Not on filedocumented in this encounter Care Teams Filter Tank Tender Helper Head Relationship Specialty Start Date End Date None None PCP - General 05/27/24 09/17/24 documented as of this encounter
--- OUTSIDE RECORDS SUMMARY | 2024-10-31 15:41 | XMS_ITS | Encounter Summary ---
[place] [address] Care Team Providers Care Deputy Coroner Name Role Phone None Primary Care Provider Unavailabl e Reason for Referral * Consultation (Urgent) - Duplicate Referral Specialty Diagnoses / Procedures Referred By Contac t Referred To Contact Cardiology Diagnoses Heart failure with mildly reduced ejection fraction (HFmrEF) Cardiomyopathy, unspecified type Hx of CABG S/P D/C - HFmrEF, Cardiomyopathy, Hx of CABG Viviana Resendiz APRN [facility] [place] [address] [facility] [address] [place] [phone] Referral ID Status Reason Start Date Expiration Date Visits Requested Visits Authorized [id number] Duplicate Referral Consult, Test & Treat 4 08/29/2025 1 1 Encounter Details Date Type Department Care Team (Late st Contact Info) Description 08/29/2024 Orders [place] [address] Viviana Resendiz APRN [facility] [place] [address] Heart failure with mildly reduced [...] PM EST Office [place] [address] Isabela Hayward, RESHMA [facility] [place] [address] 11/10/2024 10:00 AM EST Office [place] [address] Dai Whitman APRN 11/21/2024 2:15 PM EST Office [place] [address] Dayanara Grover MD [facility] [place] [address] Scheduled Referrals Name Type Priority Associated Diagnoses [...] status documented in this encounter Care Teams Deputy Coroner Relationship Specialty Start Date End Date None None PCP - General 05/27/24 09/17/24 documented as of this encounter
--- OUTSIDE RECORDS SUMMARY | 2024-10-31 15:41 | XMS_ITS | Encounter Summary ---
Author Organization [facility] [place] [address] Care Team Providers Care Digestion Operator Name Role Phone None Primary Care Provider Unavailabl e Encounter Details Date Type Department Care Team (Late st Contact Info) Description 08/28/2024 1:00 PM EDT Tech [place] [address] Erick Jama [place] Critical limb ischemia of left lower extremity Social History Tobacco Use Types Packs/Day Years Used Date Smoking Tobacco: Every Day Cigarettes 12 02 Started: 12/28/1986; Last attempted to quit: 12/28/2011 Smokeless Tobacco: Never Alcohol Use Standard Drinks/Week Comments No 0 (1 standard drink = 0.6 oz pur e alcohol) [facility] Utilities Answer Date Recorded In the past 12 months has [facility], gas, oil, or water [employer] threatened to shut off services in your [...] PM EST Office [place] [phone] Isabela Hayward APRN [facility] [place] [address] 11/10/2024 10:00 AM EST Office [place] [address] Dai Whitman APRN 11/21/2024 2:15 PM EST Office [place] [phone] Dayanara Grover MD [facility] [place] [address] documented as of this encounter Procedures Procedure Name Priority Date/Time Associated Diagnosis Comments UNILATERAL BYPASS GRAFT ASSESS Routine 08/28/2024 12:55 PM EDT Critical limb ischemia of left lower extremity documented in this encounter Results * Unilat Bypass Graft Assess (08/28/2024 12:55 PM EDT) VB Text Report Department: Vascular Surgery Lab Patient: [id number] (GEOVANNA ARAYA) CPT: 15854 Referring Physician: DAGO SNIDER ?? Phone: Indications: [...] extremity documented in this encounter Care Teams Digestion Operator Relationship Specialty Start Date End Date None None PCP - General 05/27/24 09/17/24 documented as of this encounter
--- OUTSIDE RECORDS SUMMARY | 2024-10-31 15:41 | XMS_ITS | Encounter Summary ---
Author Organization [facility] Address [facility] [place] [address] Care Team Providers Care School Superintendent Name Role Phone None Primary Care Provider Unavailabl e Encounter Details Date Type Department Care Team (Late st Contact Info) Description 09/06/2024 Notes [place] [phone] Fallon Lemus RN Social History Tobacco Use Types Packs/Day Years Used Date Smoking Tobacco: Every Day Cigarettes 1 25 Started: 12/28/1986; Last attempted to quit: 12/28/2011 Smokeless Tobacco: Never Alcohol Use Standard Drinks/Week Comments No 0 (1 standard drink = 0.6 oz pur e alcohol) [facility] Utilities Answer Date Recorded In the past 12 months has [facility] [employer], gas, oil, or water [employer] threatened to shut off services in your [...] the past 12 m [facility], were you homeless or living in a skilled nursing (including now)? No 08/02/2024 IPV Inpatient Questions [...] Dr. Dickson regarding the earlier call from [place]. Wound dressing should be as follows: Daily: [place] 1st and 5th toe with Betadine [place] 2nd to amp site with Betadine Cover amp site wound with band-aid Wrap leg with candice wrap Patient to continue wearing off loading shoe until wound completely healed. Spoke with Lux's mother and advised that a new off-loading shoe would be sent to them. This note will be routed to [facility] documented in this encounter Plan of Treatment Upcoming Encounters Date Type Department Care Team (Late st Contact Info) Description 11/09/2024 1:30 PM EST Office [place] [address] Isabela Hayward APRN [facility] [place] [address] 11/10/2024 10:00 AM EST Office [place] [address] Dai Whitman, DIP BRAZIER 11/21/2024 2:15 PM EST Office [place] [address] Dayanara Grover MD [facility] [place] [address] documented as of this encounter Visit Diagnoses Not on filedocumented in this encounter Care Teams School Superintendent Relationship Specialty Start Date End Date None None PCP - General 05/27/24 09/17/24 documented as of this encounter
--- OUTSIDE RECORDS SUMMARY | 2024-10-31 15:41 | XMS_ITS | Encounter Summary ---
Author Organization [facility] [place] [address] Care Team Providers Care Dental Therapist Name Role Phone Charles Romero Primary Care [...] lower extremity. Vibha Benson APRN [facility] [address] [facility] Card[facility] [address] [place] [phone] Referral ID Status Reason Start Date Expiration Date V isits Requested Visits Authorized [id number] Closed Consult, Test & Treat 08/28/2024 08/28/2025 1 1 Encounter Details Date Type Department Care Team (Late st Contact Info) Description 09/18/2024 11:20 AM EST Office Visit Cardiology at [address] [phone] Josh Olivarez MD [facility] [place] [address] Coronary artery disease, unspecified vessel or lesion type, unspecified whether angina present, unspecified whether [place] or transplanted heart Social History Tobacco Use Types Packs/Day Years Used Date Smoking Tobacco: Every Day Cigarettes 12 02 Started: 12/28/1986; Last attempted to quit: 12/28/2011 Smokeless Tobacco: Never Alcohol Use Standard Drinks/Week Comments No 0 (1 standard drink = 0.6 oz pur e alcohol) [facility] Utilities Answer Date Recorded In the past 12 months has th e [email or web address], gas, oil, or water [employer] threatened to shut off services in your [...] any time in the past 12 m [facility], were you homeless or [...] from the original note were not included. [facility] [place] [address] CARDIOLOGY OUTPATIENT PROGRESS NOTE PRIMARY CARE PROVIDER: JUSTIN Roberson REFERRING PROVIDER: Vibha Benson PROBLEM LIST: Patient Active Problem List Diagnosis 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 (SVG to PDA closed 08/2013) NSTEMI 12-29-2011 Cath - LAD, PDA and Distal Circ Disease CABG 01-04-2012 (MARTINEZ-LAD, SVG-PDA) Cardiac Cath 08/21/13: [patent MARTINEZ to LAD, occlusion of SVG to RPDA and occlusion of [place] RCA. LVEDP 21. PCI of mid and [...] up with PCP or Dr Bird in [facility] Obesity Weight is 130.5 Kg on 08/22/13 NSTEMI (non-ST elevated myocardial infarction) , NSTEMI, LHC HTN (hypertension) Hyperlipidemia Depression Narcolepsy MEDICATIONS: Current Outpatient Medications Medication Sig Dispense Refill senna-docusate (Pericolace) 8.6-50 mg Tablet Take 2 tablets by mouth 2 times daily. 60 tablet 11 freestyle lite strips 1 strip by Other route 3 times daily. Use as instructed Indications: [id number] each 1 FreeStyle Lancets 28 gauge Misc [...] Abdomen: Nondistended. Soft. Nontender. Extremities: No edema. ELECTRICAL SYSTEMS DESIGNER: Normal mentation. Psych: Appropriate affect. Labs: Lab [...] PM EST Office [place] [address] Isabela Hayward, SPECIAL EFFECTS ARTIST [facility] [place] [address] 11/10/2024 10:00 AM EST Office [place] [address] Dai Whitman APRN 11/21/2024 2:15 PM EST Office [place] [address] Dayanara Grover MD [facility] [place] [address] Scheduled Referrals Name Type Priority Associated Diagnoses Order Schedule Referral to Cardiology Outpatient Referral Urgent Critical limb ischemia of left lower extremity Ordered: 08/28/2024 documented as of this encounter Visit Diagnoses Diagnosis Coronary artery disease, unspecified vessel or lesion type, unspecified whether angina present, unspecified whether [place] or transplanted heart documented in this encounter Care Teams Dental Therapist Relationship Specialty Start Date End Date Charles Romero [place] [address] PCP - General Internal Medicine 09/18/24 documented as of this encounter
--- OUTSIDE RECORDS SUMMARY | 2024-10-31 15:42 | XMS_ITS | Encounter Summary ---
[place] [address] Care Team Providers Care Top Dyeing Machine Tender Name Role Phone None Primary Care Provider Unavailabl e Reason for Visit * Auth/Cert (Routine) Specialty Diagnoses / Procedures Referred By William t Referred To Contact Diagnoses Peripheral artery disease Ischemic foot Procedures EMERGENCY IPI Thony Garcia MD [facility] [place] [address] [facility] Referral ID Status Reason Start Date Expiration Date Visits Re quested Visits Authorized [id number] 1 1 Encounter Details Date Type Department Care Team (Late st Contact Info) Description 07/19/2024 8:57 AM EDT Anesthesia Event [place] [address] Penny Mathias MD [facility] [place] [address] Diana Patiño Anesthesia Record Procedure Summary Procedure [...] by Pamela Eli RN PIV 07/16/24; 1845; sgjo-zeq-lkhlyz catheter system; 22 gauge, 1.75 in length; median vein (underside of arm), left; Ultrasound Guidance; Yes - US guidance used but Image NOT saved; Erick Ponce RN, VAS; distraction, tolerated well, appears comfortable; 0; site symptomatic; 07/21/24; 0008 07/16/24 1845 by Erick Ponce RN 07/21/24 0008 by Carlos Enrique Knowles RN PIV 07/18/24; 1027; nujs-wwf-zysyia catheter system; 22 gauge, 1.75 in length; [...] 0.6 oz pur e alcohol) [facility] Utilities Answer Date Recorded In the past 12 months has th e [employer], gas, oil, or water [employer] threatened to shut off services in your [...] in a group home (including now)? No 07/17/2024 DH IPV [...] Procedure Summary Date: 07/19/24 Room / Location: [address] MAIN OR Anesthesia Start: 856 Anesthesia Stop: 1111 Procedure: AMPUTATION TOE, METATARSO-PHALANGEAL JOINT (WRVU 3.51) (Left: Toe) Diagnosis: (peripheral artery disease) Surgeons: Thony Garcia MD Responsible Provider: Penny Mathias MD Anesthesia Type: general ASA Status: 3 All Anesthesia Providers: Anesthesiologist: Penny Mathias MD Student Nurse Reconstructive Dentist: Diana Patiño Vitals Value Taken Time BP 132/91 07/19/24 1145 Temp 36.1 ??C (97 ??F) 07/19/24 1109 Pulse 82 07/19/24 1145 Resp 15 07/19/24 1145 SpO2 93 % 07/19/24 1145 Pain Level 0 07/19/24 1145 Patient Location: PACU/[facility] Level of Consciousness: Awake and [...] [facility] Social History Tobacco Use Smoking [...] PM EST Office [place] [address] Isabela Hayward, TRACK SUPERINTENDENT [facility] [place] [address] 11/10/2024 10:00 AM EST Office [place] [phone] Dai Whitman, TRACK SUPERINTENDENT 11/21/2024 2:15 PM EST Office [place] [address] Dayanara Grover MD [facility] [place] [address] documented as of this encounter Visit Diagnoses [...] mg documented in this encounter Care Teams Top Dyeing Machine Tender Relationship Specialty Start Date End Date None None PCP - General 05/27/24 09/17/24 documented as of this encounter
--- OUTSIDE RECORDS SUMMARY | 2024-10-31 15:42 | XMS_ITS | Encounter Summary ---
Author Organization [facility] [place] [address] Care Team Providers Care Is/It Project Manager Name Role Phone None Primary Care [...] alcohol) [facility] Utilities Answer Date Recorded In the past [...] in a custodial (including now)? No 07/17/2024 IPV Inpatient Questions [...] PM EST Office Visit [place] [address] Isabela Hayward APRN [facility] [place] [address] 11/10/2024 10:00 AM EST Office Visit [place] [address] Dai Whitman APRN 11/21/2024 2:15 PM EST Office [place] [address] Dayanara Grover MD [facility] [place] [address] documented as of this encounter Visit Diagnoses Not on filedocumented in this encounter Care Teams Is/It Project Manager Relationship Specialty Start Date End Date None None PCP - General 05/27/24 09/17/24 documented as of this encounter
--- OUTSIDE RECORDS SUMMARY | 2024-10-31 15:42 | XMS_ITS | Encounter Summary ---
Author Organization [place] [id number] Care Team Providers Care Editor House Organ Name Role Phone None Primary Care Provider Unavailabl e Reason for Visit * Reason Comments Hospital Transfer * Auth/Cert (Routine) Specialty Diagnoses / Procedures Referred By William t Referred To Contact Diagnoses Peripheral artery disease Ischemic foot Procedures EMERGENCY IPI Thony Garcia MD [facility] [place] [address] [facility] Referral ID Status Reason Start Date Expiration Date Visits Re quested Visits Authorized [id number] 1 1 Encounter Details Date Type Department Care Team (Latest Contact Info) Description 07/14/2024 6:07 PM EDT - 07/21/2024 7:15 PM EDT Hospital Encounter Surgical Unit Level 4 [place] [id number] Thony Garcia MD [facility] [place] [address] Cellulitis of foot, left; Peripheral artery disease; Critical limb ischemia of left lower extremity Discharge Disposition: Home Social History Tobacco Use Types Packs/Day Years Used Date Smoking Tobacco: Every Day Cigarettes 1 25 Started: 12/28/1986; Last attempted to quit: 12/28/2011 Alcohol Use Standard Drinks/Week Comments No 0 (1 standard drink = 0.6 oz pur e alcohol) [facility] Utilities Answer Date Recorded In the [...] any time in the past 12 m [facility], were you homeless or living in a chcf (including now)? No 07/17/2024 DH IPV Inpatient [...] been previously admitted [facility] the [facility] Surgery service on 05/28 - 06/02 [...] tobacco/substance abuse, narcolepsy/cataplexy, who initially presented to [facility] ED with left foot wounds/cellulitis and concern for limb ischemia who [facility]. Recent admit 05/2024 for short segment left popliteal occlusion; he was treated with a heparin drip and antibiotics for cellulitis with improvement. He was discharged on Xarelto 2.5mg BID, aspirin and short course of Augmentin with instructions to be seen in 1 mo [facility], which he did not show for [...] of an occluded SVG-RPDA graft with a IT SECURITY CONSULTANT of his right coronary artery. He has [...] 149 Dorsalis Pedis (Ankle) Artery 83 0.55 Sumter-Biphasic Posterior Tibial (Ankle) Artery 87 0.57 Monophasic [...] Jr. [address] [facility] [address] [phone] (home) Telephone Information: Diagnosis: deconditioning with Unsteady gait Significant weakness, ataxia or gait abnormality Patient's: Hgt: Ht Readings from Last 1 Encounters: 07/14/24 : 177.8 cm (5' 10) Wgt: Wt Readings from Last 1 Encounters: 07/14/24 : 99.8 kg (220 lb) VENDOR: [employer] Ordering: Front wheel walker Deliver to [facility] room #: 448A Questions: Device Needed: [...] Blood thinner have been sent to your [facility] in [facility]. Anticoagulation: xarelto 20 mg daily [...] For any problems or questions please call [phone] For issues on weeknights after 5pm and weekends please call [phone] and ask for the Vascular Fellow cisco consultant. Geovanna-for your diabetes! Most important thing is [...] juice or regular (not diet) soda 6 Percolates small box of raisins 4 glucose tablets [...] Tierney APRN - 07/20/2024 10:13 AM EDT [facility] Interventional Radiology Post Angiography Instructions Procedure: [...] hoildays, call and ask for the residential property tax appraiser cisco consultant. OR Vascular Department at until 4:45pm. After 4:45pm call and ask for the Vascular resident cisco consultant. 10. If you are a diabetic and [...] Blood thinner have been sent to your [facility] in [facility]. Anticoagulation: xarelto 20 mg daily [...] For any problems or questions please call [phone] For issues on weeknights after 5pm and weekends please call [phone] and ask for the Vascular Fellow cisco consultant. Geovanna-for your diabetes! Most important thing is [...] Carb Controlled 60/60/75g Monitoring: BG Q4 Discharge Planning/penitentiary diabetes care: Medications - Outpatient treatment regimen [...] 3.51) performed by Thony Garcia MD at [facility] MAIN OR PRO CABG, ARTERY-VEIN, SINGLE 01/04/2012 @CABG, VENOUS & ARTERIAL GRAFT;SINGLE VEIN GRAFT performed by INNA TOVAR at [facility] MAIN OR PRO ENDOSCOPY W/VIDEO-ASST VEIN HARVEST, CABG 01/04/2012 ENDOSCOPIC HARVEST VEIN(S) FOR CABG performed by INNA TOVAR at [facility] MAIN OR Active Non-Hospital Problems Diagnosis [...] Anne PT, Doctor of Physical Therapy Pager: [phone] Physical Therapy Inpatient Rehabilitation Department * Carlos [...] Anne PT, Doctor of Physical Therapy Pager: [phone] Physical Therapy Inpatient Rehabilitation Department * Hailey Nick RN - 07/20/2024 10:00 AM EDT ANGIO NURSING DATABASE Name: Geovanna Dixon JrFlorencio Date of : 1975 AGE: 49 y.o. Address: [address] [place] [address] [facility] [address] Phone: [phone] (home) Mobile: Telephone Information: Referring Provider: Herminio [...] Carb Controlled 60/60/75g Monitoring: BG Q4 Discharge Planning/penitentiary diabetes care: Medications - Outpatient treatment regimen [...] Note Geovanna Viet Dixon Jr. HPI: Geovanna Llanos Zack Winter is [...] Q6H PRN Cristiano Jones MD No current [facility]-ordered outpatient medications on file. Allergies No Known [...] ASA II Rubio Grimaldo MD Vascular Surgery [facility] Vascular Surgery Floor Pager: [phone] Vascular Surgery Consult Pager: [phone] * Rubio Grimaldo MD - 07/20/2024 8:00 [...] been previously admitted to the [facility] Surgery service on 05/28 - 06/02 [...] Procedure Component Value - Date/Time Anaerobic Culture [[id number]] Collected: 07/19/24950 Lab Status: Preliminary result Specimen: Bone from Toe(s), Left Foot Updated: 07/20/24 1420 Anaerobic Culture No anaerobic organisms isolated to date Fungus culture [[id number]] Collected: 07/19/24950 Lab Status: Preliminary result Specimen: Bone from Toe(s), Left Foot Updated: 07/20/24 0931 Fungus Culture No fungus isolated to date Bone Culture [[id number]] Collected: 07/19/24950 Lab Status: Preliminary result Specimen: Bone from Toe(s), Left Foot Updated: 07/20/24 0650 Bone Culture No growth to date Gram Stain No neutrophils seen No microorganisms seen MRSA PCR Screen [[id number]] (Normal) Collected: 07/16/24 1407 Lab Status: Final result Specimen: Swab from Nares Updated: 07/17/24 1804 MRSA PCR Not Detected Narrative: This test was performed using the Xpert MRSA NxG test kit and is run on the NetConstatXpert Dx System. This test is cleared by the U.S. Food and Drug Administration for clinical use and its performance characteristics have been verified by the Clinical [employer] [facility] [employer] [facility] at [facility]. This test was performed using the Xpert MRSA NxG test kit and is run on the NetConstatXpert Dx System. This test is cleared by the U.S. Food and Drug Administration for clinical use and its performance characteristics have been verified by the Clinical [employer] [facility] at [facility]. New Studies: ABIs 07/17/24: Findings: Right Pressure (mm Hg) ELEN Waveform TBI Brachial Artery 152 Dorsalis Pedis (Ankle) Artery 167 1.10 Triphasic Posterior Tibial (Ankle) Artery 168 1.11 Triphasic Great Toe 141 0.93 Left Pressure (mm Hg) ELEN Waveform TBI Brachial Artery 149 Dorsalis Pedis (Ankle) Artery 83 0.55 Sumter-Biphasic Posterior Tibial (Ankle) Artery 87 0.57 Monophasic [...] who have questions please contact the health workforce investment act career manager that requested your imaging first. Angiogram Aortic [...] 2.6 cm vessel length at and just ugxiz-zfo-[id number], similar to prior. Anterior tibial artery: No [...] who have questions please contact the health workforce investment act career manager that requested your imaging first. Assessment & [...] status: Full Rubio Grimaldo MD 07/20/2024 Pager: [phone] * Fallon Oliva MD - 07/19/2024 3:21 [...] as appropriate. Thanks. Oli Call, ELDON Beeper# [phone] * María Carranza APRN - 07/19/2024 9:54 [...] been previously admitted to the [facility] Vascular Surgery service on 05/28 - 06/02 [...] Component Value - Date/Time MRSA PCR Screen [[id number]] (Normal) Collected: 07/16/24 1407 Lab Status: Final result Specimen: Swab from Nares Updated: 07/17/24 180 MRSA PCR Not Detected Narrative: This test was performed using the Xpert MRSA NxG test kit and is run on the [employer] GeneXpert Dx System. This test is cleared by the U.S. Food and Drug Administration for clinical use and its performance characteristics have been verified by the Clinical [employer] [facility] at [facility]. This test was performed using the Xpert MRSA NxG test kit and is run on the [employer] GeneXpert Dx System. This test is cleared by the U.S. Food and Drug Administration for clinical use and its performance characteristics have been verified by the Clinical [employer] [facility] [employer] [facility] at [facility]. New Studies: ABIs 07/17/24: Findings: Right Pressure (mm Hg) ELEN Waveform TBI Brachial Artery 152 Dorsalis Pedis (Ankle) Artery 167 1.10 Triphasic Posterior Tibial (Ankle) Artery 168 1.11 Triphasic Great Toe 141 0.93 Left Pressure (mm Hg) ELEN Waveform TBI Brachial Artery 149 Dorsalis Pedis (Ankle) Artery 83 0.55 Sumter-Biphasic Posterior Tibial (Ankle) Artery 87 0.57 Monophasic [...] who have questions please contact the health workforce investment act career manager that requested your imaging first. Angiogram Aortic [...] 2.6 cm vessel length at and just xcyoo-nos-twsm, similar to prior. Anterior tibial artery: No [...] who have questions please contact the health workforce investment act career manager that requested your imaging first. Assessment & Plan: Geovanna Llanos Zack Jr. [...] status: Full María Carranza APRN 07/19/2024 Pager: [phone] * Oli Call, PT - 07/18/2024 12:53 [...] 13 ; functional mobility OLI CALL, PT Pager:[phone] Physical Therapy Inpatient Rehabilitation Department * Fallon [...] been previously admitted to the [facility] V[facility] Surgery service on 05/28 - 06/02 [...] 149 Dorsalis Pedis (Ankle) Artery 83 0.55 Sumter-Biphasic Posterior Tibial (Ankle) Artery 87 0.57 Monophasic [...] who have questions please contact the health workforce investment act career manager that requested your imaging first. Angiogram Aortic [...] 2.6 cm vessel length at and just fppfk-ylj-oqhd, similar to prior. Anterior tibial artery: No [...] who have questions please contact the health workforce investment act career manager that requested your imaging first. Assessment & [...] 07/18/2024 Vascular Surgery p.[phone] * Lakeisha Berry, RENTAL CAR DELIVERER - 07/18/2024 10:00 AM EDT Glucose Management Team Inpatient Progress Note HPI Geovanna Dixon Jr. is a 49 y.o. male from [place], [place], with PMH significant for T2DM IDDM [...] management and to provide a review of lobsterman diabetes care. Original consult completed: 07/15 by [...] ICR 1:4g). 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 Lakeisha Berry APRN, DNP, -[facility] Inpatient Diabetes Management Team Team pager #[phone] (DRAFT) Diabetes Discharge Instructions & Recommendations Check [...] performed by INNA TOVAR at [facility] MAIN OR PRO ENDOSCOPY W/VIDEO-ASST VEIN HARVEST, CABG 01/04/2012 ENDOSCOPIC HARVEST VEIN(S) FOR CABG performed by INNA TOVAR at [facility] MAIN OR Social History: Home set-up: [...] Billing Code: evaluation OLI CALL, PT Pager: [phone] Physical Therapy Inpatient Rehabilitation Department * Lakeisha Berry, RENTAL CAR DELIVERER - 07/17/2024 2:00 PM EDT Glucose Management Team Inpatient Progress Note HPI Geovanna Dixon Jr. is a 49 y.o. 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 Lakeisha Berry APRN, DNP, -[facility] Inpatient Diabetes Management Team Team pager #[phone] * Hermila White APRN - 07/17/2024 7:45 [...] been previously admitted to the [facility] V[facility] Surgery service on 05/28 - 06/02 [...] TID insulin lispro 1-6 Units Subcutaneous Q4H [facility] insulin glargine (Lantus;Semglee) (100 unit/mL) subcutaneous injection [...] who have questions please contact the health workforce investment act career manager that requested your imaging first. Angiogram Aortic [...] 2.6 cm vessel length at and just adxex-kpd-kvbr, similar to prior. Anterior tibial artery: No [...] who have questions please contact the health workforce investment act career manager that requested your imaging first. Assessment & [...] (patient unsure whether he was taking this MICROBIOLOGY TECHNICIAN) - Glargine 50 units nightly; meal associated lispro ICR 1:6g; moderate correction scale q4hrs - Diabetes management team consult, appreciate recommendations - Home meds: Losartan, metoprolol, protriptyline, PPI, venlafaxine - Full code Hermila White APRN 07/17/2024 Pager: [phone] * Dai Carter RN - 07/17/2024 2:43 [...] been previously admitted to the [facility] Vascular Surgery service on 05/28 - 06/02 [...] who have questions please contact the health workforce investment act career manager that requested your imaging first. Angiogram Aortic [...] 2.6 cm vessel length at and just bcnud-koh-jgww, similar to prior. Anterior tibial artery: No [...] who have questions please contact the health workforce investment act career manager that requested your imaging first. Assessment & [...] (patient unsure whether he was taking this MICROBIOLOGY TECHNICIAN) - Glargine 45 units nightly; meal associated lispro ICR 1:6g; moderate correction scale q4hrs - Diabetes management team consult, appreciate recommendations - Home meds: Losartan, metoprolol, protriptyline, PPI, venlafaxine - Full code Hermila White APRN 07/16/2024 Pager: [phone] * Dayanara Grover MD - 07/16/2024 8:52 [...] he will need outpatient follow up at [facility] endocrine clinic. He lives in [facility], but notes he has a [...] primary team (vascular surgery). Dayanara Grover PGY-5 [facility] Endocrinology Associated attestation - Karen Reno MD [...] been previously admitted to the [facility] Vascular Surgery service on 05/28 - 06/02 [...] or shortness of breath. - Last BM MICROBIOLOGY TECHNICIAN Objective: Temp: [36.4 ??C (97.5 ??F)-36.7 ??C [...] who have questions please contact the health workforce investment act career manager that requested your imaging first. Angiogram Aortic [...] 2.6 cm vessel length at and just hduli-sru-xjem, similar to prior. Anterior tibial artery: No [...] who have questions please contact the health workforce investment act career manager that requested your imaging first. Assessment & [...] (patient unsure whether he was taking this MICROBIOLOGY TECHNICIAN) - Glargine 28 units nightly; meal associated lispro ICR 1:8g; moderate correction scale to [id number] - Diabetes management team consult - Home meds: Losartan, metoprolol, protriptyline, PPI, venlafaxine - Full code Hermila White APRN 07/15/2024 Pager: [phone] documented in this encounter H&P Notes * Dejah Marshall MD - 07/14/2024 10:16 PM EDT Images from the original note were not included. Vascular Surgery H&P Note Patient Name: Geovanna Dixon Jr. MR#: [id number] : 1975 Admission Date: 07/14/2024 History of [...] been previously admitted to the [facility] V[facility] Surgery service on 05/28 - 06/02 [...] performed by INNA TOVAR at [facility] MAIN OR PRO ENDOSCOPY W/VIDEO-ASST VEIN HARVEST, CABG 01/04/2012 ENDOSCOPIC HARVEST VEIN(S) FOR CABG performed by INNA TOVAR at [facility] MAIN OR Home Medications: Current Outpatient [...] LACTATEVEN 1.1 No results for input(s): PHART, YQZ8JGE, PO2ART, FHN6UYU in the last 72 hours. Studies: No [...] Dejah Marshall MD 07/15/2024 Vascular Surgery Service p.[phone] documented in this encounter Nursing Notes * [...] - 07/14/2024 4:47 PM EDT Sending Facility: [facility] Reason for Transfer: Vascular consult Report: Hx ischemic ulcer and DM T2. Has trouble getting to appointments at [facility] due to long drive. Decreased cap refill L left with streaking and decreased pulses. Lactate 3.2. Glucose 630. Given 10u of regular insulin, 500ml NS, 2g Cefepime, 1.5 vanc. 20g L AC. Vital Signs: Pulse: 97 B/P: 138/94 Resp: RA SPO2: 97% O2 LPM: RA GCS: 15 BGL: Temp: 36.8c Transporting Service: [place] Time of Departure: 1650 ETA: 1800 documented in this encounter Miscellaneous Notes * Care Management Discharge - hPu Kennedy RN - 07/21/2024 4:57 PM EDT [...] MEDICARE Payor: WELLCARE MANAGED MEDICARE / Plan: [id number] MANAGED MEDICARE PPO / Product Type: *No Product type* / Secondary Insurance: N/A Prescription Coverage: Yes This plan was formulated with input from patient and team. All are in agreement with plan. IMM on shared list for RS to deliver. Phu Kennedy HIGH SCHOOL TUTOR snap shearer [phone] * Plan of Care - Carlos Enrique [...] Intervention: Optimize Tissue Perfusion Flowsheets (Taken 07/20/2024 1352) Body Position: (boosted) position changed independently Problem: [...] been previously admitted to the [facility] Vascular Surgery service on 05/28 - 06/02 [...] No Patient is insured through: Primary Insurance: [id number] MANAGED MEDICARE Payor: [employer] MEDICARE / Plan: [id number] MANAGED MEDICARE PPO / Product Type: *No [...] Jones MD - 07/19/2024 10:11 AM EDT [facility] Operative Note Patient Name: Geovanna Dixon Jr. : [id number] MR#: [id number] Case Date: 07/19/2024 Surgeon: Surgeons and Role: [...] 0 BMs this shift. 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 Pt ambulated to the restroom overnight with [...] have. Alternately, during off-hours you may call [phone] to contact a pharmacist. * Plan of [...] been previously admitted to the [facility] Vascular Surgery serviceon 05/28 - 06/02 of [...] performed by INNA TOVAR at [facility] MAIN OR PRO ENDOSCOPY W/VIDEO-ASST VEIN HARVEST, CABG 01/04/2012 ENDOSCOPIC HARVEST VEIN(S) FOR CABG performed by INNA TOVAR at [facility] MAIN OR Active Non-Hospital Problems Diagnosis [...] only Total Minutes, Occupational Therapy: 23 (evaluation ([id number])) OT Evaluation Code Rationale: Diagnosis & Pertinent Co-Morbidities affecting Plan of Care: see PMHx Occupational Profile & Client History: Brief Expanded Extensive X Assessment of Occupational Performance: 1-3 performance deficits X 3-5 performance deficits 5 + performance deficits Clinical Decision Making: Low Moderate High X Clinical decision making of low complexity using standardized patient assessment instrument and measurable assessment of functional outcome. Pager: [phone] Camille Holloway OT 07/17/2024 Occupational Therapy Rehabilitation [...] surrogate would be surrogate decision maker per [place] surrogate decision making law. (Only good for 180 days) Any patient receiving care in [place] must abide by [place] law. The hierarchy for surrogate decision making [...] (i) The agent with financial power of professional soccer player or a conservator appointed in accordance with [...] In the past 12 months has the [employer], oil, or water [employer] threatened to shut off services in your [...] DME: none Home Address confirmed as: [address], [place], [place] Social & Family Supports: All names [...] Addiction likely Other Pertinent/Service Specific Information: head men's tennis coach to see patient. Hx of cocaine use Health/Prescription Coverage: Primary nsurance: WELLCARE MANAGED MEDICARE Payor: [employer] MEDICARE / Plan: WELLCARE MANAGED MEDICARE PPO / Product Type: *No Product type* / Secondary Insurance: N/A ONLY if patient has Medicare A&B - Does this patient have secondary insurance?: No ; Why not?: Managed Medicare Prescription Coverage: Yes Preferred Pharmacy: [id number] - [place], [place] - [address] [facility] [address] [facility] [address] [id number] - [place], [place] - [address] [facility] [address] [address] Status: Patient is a : No Primary [...] dry andstable, no open areas, no drainage. [place] with povidone- iodine daily and leave open [...] or the wound care team on pager [phone] with skin and wound care concerns or questions. * Consult Note - Cynthia Carreon - 07/17/2024 11:00 AM EDT PT sleeping RC will return. * Consult Note - Pj, Angel Flroes MD - 07/17/2024 8:52 AM EDT Images from the original note were not included. [facility] Cardiovascular Medicine [facility]ly [facility] [address] [facility] [address] CARDIOLOGY CONSULT NOTE Date of Consultation: 07/17/2024 [...] tobacco/substance abuse, narcolepsy/cataplexy, who initially presented to [facility] ED with left foot wounds/cellulitis and concern for limb ischemia who was transferred to [facility] for vascular surgery assessment. Recent admit 05/2024 [...] been previously admitted to the [facility] Vascular Surgery service on 05/28 - 06/02 [...] Surgical Unit Level 4 Wing D at [facility] ED to Hosp-Admission (Discharged) from 05/28/2024 in Surgical Unit Level 4 Wing D at [facility] Weight 99.8 kg (220 [...] tobacco/substance abuse, narcolepsy/cataplexy, who initially presented to [facility] ED with left foot wounds/cellulitis and concern for limb ischemia who [facility]. Recent admit 05/2024 for short segment left popliteal occlusion; he was treated with a heparin drip and antibiotics for cellulitis with improvement. He was discharged on Xarelto 2.5mg BID, aspirin and short course of Augmentin with instructions to be seen in 1 mo [facility], which he did not show for [...] of an occluded SVG-RPDA graft with a IT SECURITY CONSULTANT of his right coronary artery. He has [...] questions or concerns arise. Angel Oliva MD, [facility] Staff Data Center Architect * Plan of Care - Lauren Mitchell [...] management and to provide a review of lobsterman diabetes care. Diabetes History: Geovanna Dixon Jr. [...] he will need outpatient follow up at [facility] endocrine clinic. He lives in [facility], but notes he has a [...] primary team (vascular surgery). Dayanara Grover PGY-5 [facility] Endocrinology Associated attestation - Karen Reno MD [...] seen eye doctor in years, his triglycerides [id number] was very high, needs recheck and aggressive [...] PM EST Office [place] [phone] Isabela Hayward, RENTAL CAR DELIVERER [facility] [place] [address] 11/10/2024 10:00 AM EST Office [place] [phone] Dai Whitman APRN 11/21/2024 2:15 PM EST Office Visit Endocrinology at [facility] [place] [phone] Dayanara Grover MD [facility] [place] [address] documented as of this encounter Procedures Procedure [...] 49 AM EDT Amputation Toe, Mt-P Jt ([id number]) 07/19/2024 8:57 AM EDT peripheral artery disease [...] * POC, GLUCOSE (07/21/2024 3:43 PM EDT) [facility] Glucometer, POC 111 65 - 199 mg/dL 07/21/2024 3:44 PM EDT [facility] Comment:Supplemental ranges: <140 mg/dL before meals <180 mg/dL all other times of the day. Blood CAPILLARY BLOOD / Unknown 07/21/2024 3:43 PM EDT 07/21/2024 3:44 PM EDT Thony Garcia MD POINT OF CARE TEST O RDERAHERNANDEZ Performing Organization Address City/[facility]/ZIP Co de Phone Number [facility] [place] [address] * (ABNORMAL) POC, GLUCOSE (07/21/2024 12:18 PM EDT) Glucometer, POC 247(H) 65 - 199 mg/dL 07/21/2024 12:20 PM EDT [facility] Comment:Supplemental ranges: <140 mg/dL before meals <180 mg/dL all other times of the day. Blood CAPILLARY BLOOD / Unknown 07/21/2024 12:18 PM EDT 07/21/2024 12:20 PM EDT Thony Garcia MD POINT OF CARE TEST O GILDA Performing Organization Address [facility] Co de Phone Number [facility] [place] [address] * POC, GLUCOSE (07/21/2024 8:37 AM EDT) Glucometer, POC 163 65 - 199 mg/dL 07/21/2024 8:38 AM EDT [facility] Comment:Supplemental ranges: <140 mg/dL before meals <180 mg/dL all other times of the day. Blood CAPILLARY BLOOD / Unknown 07/21/2024 8:37 AM EDT 07/21/2024 8:38 AM EDT Thony Garcia MD POINT OF CARE TEST O RDERAHERNANDEZ Performing Organization Address City/[facility] Co de Phone Number [facility] [place] [address] * (ABNORMAL) Basic Metabolic Panel (07/21/2024 5:55 AM EDT) Glucose 172 65 - 199 mg/dL 07/21/2024 6:[address] [facility] Comment:Glucose Concentratio n >=200 mg/dL plus symptoms is consistent with Diabetes Mellitus. Blood Urea Nitrogen 12 10 - 20 mg/dL 07/21/2024 6:[address] [facility] Creatinine 0.55(L) 0.80 - 1.50 mg/dL 07/21/2024 6:[address] [facility] Sodium 138 135 - 145 mMol/L 07/21/2024 6:[address] [facility] Potassium 4.1 3.5 - 5.0 mMol/L 07/21/2024 6:[address] [facility] Chloride 103 98 - 107 mMol/L 07/21/2024 6:[address] [facility] Carbon Dioxide 23 22 - 31 mMol/L 07/21/2024 6:[address] [facility] Anion Gap 12 5 - 15 mMol/L 07/21/2024 6:[address] [facility] Calcium 9.4 8.5 - 10.5 mg/dL 07/21/2024 6:[address] [facility] Est Glomerular Filtration Rate - Male 121 mL/min/1. 73 m?? 07/21/2024 6:[address] [facility] Comment: This patient's estimated GFR [...] MD CHEMISTRY ORDERABLES [facility] [place] [address] * (ABNORMAL) CBC (with Diff) (07/21/2024 5:55 [...] - 93.1 fL 07/21/2024 6:17 AM EDT [facility] Mean Cell Hemoglobin 29.2 27.5 - 32.1 pg 07/21/2024 6:17 AM EDT [facility] Mean Cell Hemoglobin Concentration 33.2 32.0 - 35.7 g/dL 07/21/2024 6:17 AM EDT [facility] Platelet 405(H) 145 - 357 x10(3)/mc L 07/21/2024 6:17 AM EDT [facility] Mean Platelet Volume 9.3 7.6 - 12.9 fL 07/21/2024 6:17 AM EDT [facility] RDW Standard Deviation 42.2 36.0 - 45.0 fL 07/21/2024 6:17 AM EDT [facility] RDW coefficient of variation 13.2 11.4 - 13.8 % 07/21/2024 6:17 AM EDT [facility] NRBC% auto 0.0 % 07/21/2024 6:[address] [facility] NRBC Absolute 0.00 0.00 - 0.00 x10(3)/mc L 07/21/2024 6:[address] [facility] Neutrophil % 64.5 % 07/21/2024 6:[address] [facility] Neutrophil Absolute (ANC) - Automated 6.52(H) 1.70 - 6.10 x10(3)/mc L 07/21/2024 6:[address] [facility] Lymph % 24.3 % 07/21/2024 6:[address] [facility] Lymph Absolute 2.46 0.90 - 3.20 x10(3)/mc L 07/21/2024 6:[address] [facility] Monocyte % 8.4 % 07/21/2024 6:[address] [facility] Monocyte Absolute 0.85 0.30 - 0.90 x10(3)/mc L 07/21/2024 6:[address] [facility] Eos % 1.6 % 07/21/2024 6:[address] [facility] Eos Absolute 0.16 0.00 - 0.40 x10(3)/mc L 07/21/2024 6:[address] [facility] Basophil % 0.7 % 07/21/2024 6:[address] [facility] Baso Absolute 0.07 0.00 - 0.10 x10(3)/mc L 07/21/2024 6:[address] [facility] Immature Gran % 0.5 % 6:[address] [facility] Immature Gran Absolute 0.05(H) 0.00 - 0.04 x10(3)/mc L 07/21/2024 6:[address] [facility] Blood VENOUS BLOOD SPECIMEN / Unknown IP Care Team Draw / Unknown 07/21/2024 5:55 AM EDT 07/21/2024 6:13 AM EDT Thony Garcia MD HEMATOLOGY ORDERABLE S [facility] [place] [address] * Phosphorus (07/21/2024 5:55 AM EDT) Phosphorus 3.9 2.5 - 4.5 mg/dL 07/21/2024 6:45 AM EDT [facility] Blood VENOUS BLOOD SPECIMEN / Unknown IP Care Team Draw / Unknown 07/21/2024 5:55 AM EDT 07/21/2024 6:13 AM EDT Thony Garcia MD CHEMISTRY ORDERABLES Performing Organization Address City/[facility]/ZIP Co de Phone Number [facility] [place] [address] * Magnesium (07/21/2024 5:55 AM EDT) Magnesium 0.82 0.69 - 1.07 mMol/L 07/21/2024 6:45 AM EDT [facility] Blood VENOUS BLOOD SPECIMEN / Unknown IP Care Team Draw / Unknown 07/21/2024 5:55 AM EDT 07/21/2024 6:13 AM EDT Thony Garcia MD CHEMISTRY ORDERABLES [facility] [place] [address] * POC, GLUCOSE (07/21/2024 3:57 AM EDT) Glucometer, POC 163 65 - 199 mg/dL 07/21/2024 4:01 AM EDT [facility] Comment:Supplemental ranges: <140 mg/dL before meals <180 mg/dL all other times of the day. Blood CAPILLARY BLOOD / Unknown 07/21/2024 3:57 AM EDT 07/21/2024 4:01 AM EDT Thoyn Garcia MD POINT OF CARE TEST O GILDA Performing Organization Address [facility] Co de Phone Number [facility] [place] [address] * POC, GLUCOSE (07/20/2024 11:54 PM EDT) Glucometer, POC 190 65 - 199 mg/dL 07/20/2024 11:58 PM EDT [facility] Comment:Supplemental ranges: <140 mg/dL before meals <180 mg/dL all other times of the day. Blood CAPILLARY BLOOD / Unknown 07/20/2024 11:54 PM EDT 07/20/2024 11:58 PM EDT Thony Garcia MD POINT OF CARE TEST O GILDA Performing Organization Address [facility] Co de Phone Number [facility] [place] [address] * POC, GLUCOSE (07/20/2024 8:17 PM EDT) Glucometer, POC 166 65 - 199 mg/dL 07/20/2024 8:17 PM EDT [facility] Comment:Supplemental ranges: <140 mg/dL before meals <180 mg/dL all other times of the day. Blood CAPILLARY BLOOD / Unknown 07/20/2024 8:17 PM EDT 07/20/2024 8:18 PM EDT Thony Garcia MD POINT OF CARE TEST O GILDA Performing Organization Address [facility] Co de Phone Number [facility] [place] [address] * (ABNORMAL) POC, GLUCOSE (07/20/2024 3:51 PM EDT) Glucometer, POC 218(H) 65 - 199 mg/dL 07/20/2024 3:51 PM EDT [facility] Comment:Supplemental ranges: <140 mg/dL before meals <180 mg/dL all other times of the day. Blood CAPILLARY BLOOD / Unknown 07/20/2024 3:51 PM EDT 07/20/2024 3:51 PM EDT Thony Garcia MD POINT OF CARE TEST O GILDA Performing Organization Address [facility] de Phone Number [facility] [place] [address] * POC, GLUCOSE (07/20/2024 10:55 AM EDT) Glucometer, POC 96 65 - 199 mg/dL 07/20/2024 10:56 AM EDT [facility] Comment:Supplemental ranges: <140 mg/dL before meals <180 mg/dL all other times of the day. Blood CAPILLARY BLOOD / Unknown 07/20/2024 10:55 AM EDT 07/20/2024 10:56 AM EDT Thony Garcia MD POINT OF CARE TEST O GILDA Performing Organization Address [facility] de Phone Number [facility] [place] [address] * Vein Map Arm, Bilateral (07/20/2024 10:48 AM EDT) VB Text Report Department: Vascular Surgery Lab Patient: [id number] (GEOVANNA DIXON) CPT: 33520 Referring Physician: THONY GARCIA ?? Indications: Patient [...] Garcia MD VASCULAR ORDERABLES Performing Organization Address City/State/[facility] Co de Phone Number [facility] * VS [...] [place] [facility] [place] on 05/28 - 06/02 [...] the sedation RN. Anabel Finney MD, MPH [facility] [place] ? Thony Garcia MD IMG IR ORDERABLES * POC, GLUCOSE (07/20/2024 8:12 AM EDT) [facility] Glucometer, POC 119 65 - 199 mg/dL 07/20/2024 8:12 AM EDT [facility] Comment:Supplemental ranges: <140 mg/dL before meals <180 mg/dL all other times of the day. Blood CAPILLARY BLOOD / Unknown 07/20/2024 8:12 AM EDT 07/20/2024 8:12 AM EDT Thony Garcia MD POINT OF CARE TEST O RDERABLES [facility] [place] [address] * (ABNORMAL) CBC (with Diff) (07/20/2024 3:42 AM EDT) White Blood Cell 16.61(H) 4.00 - 9.50 x10(3)/mc L 07/20/2024 4:[address] [facility] Red Blood Cell 4.44(L) 4.58 - 5.54 x10(6)/mc L 07/20/2024 4:[address] [facility] Hemoglobin 13.0(L) 13.7 - 16.5 g/dL 07/20/2024 4:[address] [facility] Hematocrit 39.2(L) 40.5 - 48.5 % 07/20/2024 4:[address] [facility] Mean Cell Volume 88.3 82.9 - 93.1 fL 07/20/2024 4:[address] [facility] Mean Cell Hemoglobin 29.3 27.5 - 32.1 pg 07/20/2024 4:[address] [facility] Mean Cell Hemoglobin Concentration 33.2 32.0 - 35.7 g/dL 07/20/2024 4:[address] [facility] Platelet 458(H) 145 - 357 x10(3)/mc L 07/20/2024 4:[address] [facility] Mean Platelet Volume 9.5 7.6 - 12.9 fL 07/20/2024 4:[address] [facility] RDW Standard Deviation 42.5 36.0 - 45.0 fL 07/20/2024 4:[address] [facility] RDW coefficient of variation 13.2 11.4 - 13.8 % 07/20/2024 4:[address] [facility] NRBC% auto 0.0 % 07/20/2024 4:[address] [facility] NRBC Absolute 0.00 0.00 - 0.00 x10(3)/mc L 07/20/2024 4:[address] [facility] Neutrophil % 74.2 % 07/20/2024 4:23 AM EDT [facility] Neutrophil Absolute (ANC) - Automated 12.32(H) 1.70 - 6.10 x10(3)/mc L 07/20/2024 4:23 AM EDT [facility] Lymph % 16.5 % 07/20/2024 4:23 AM EDT [facility] Lymph Absolute 2.74 0.90 - 3.20 x10(3)/mc L 07/20/2024 4:23 AM EDT [facility] Monocyte % 7.5 % 07/20/2024 4:23 AM EDT [facility] Monocyte Absolute 1.25(H) 0.30 - 0.90 x10(3)/mc L 07/20/2024 4:23 AM EDT [facility] Eos % 0.8 % 07/20/2024 4:23 AM EDT [facility] Eos Absolute 0.14 0.00 - 0.40 x10(3)/mc L 07/20/2024 4:23 AM EDT [facility] Basophil % 0.4 % 07/20/2024 4:23 AM EDT [facility] Baso Absolute 0.06 0.00 - [...] HEMATOLOGY ORDERABLE S [facility] [place] [address] * (ABNORMAL) POC, GLUCOSE (07/20/2024 3:41 AM EDT) Glucometer, POC 204(H) 65 - 199 mg/dL 07/20/2024 3:41 AM EDT [facility] Comment:Supplemental ranges: <140 mg/dL before meals <180 mg/dL all other times of the day. Blood CAPILLARY BLOOD / Unknown 07/20/2024 3:41 AM EDT 07/20/2024 3:41 AM EDT Thony Garcia MD POINT OF CARE TEST O RDERABLES [facility] [place] [address] * (ABNORMAL) Basic Metabolic Panel (07/20/2024 3:41 AM EDT) Glucose 209(H) 65 - 199 mg/dL 07/20/2024 5:00 AM EDT [facility] Comment:Glucose Concentratio n >=200 mg/dL plus symptoms is consistent with Diabetes Mellitus. Blood Urea Nitrogen 12 10 - 20 mg/dL 07/20/2024 5:00 AM EDT [facility] Creatinine 0.53(L) 0.80 - 1.50 mg/dL 07/20/2024 5:[facility] Sodium 135 135 - 145 mMol/L 07/20/2024 5:00 AM EDT [facility] Potassium 4.2 3.5 - 5.0 mMol/L 07/20/2024 5:[address] [facility] Chloride 102 98 - 107 mMol/L 07/20/2024 5:[address] [facility] Carbon Dioxide 21(L) 22 - 31 mMol/L 07/20/2024 5:[address] [facility] Anion Gap 12 5 - 15 mMol/L 07/20/2024 5:[address] [facility] Calcium 9.4 8.5 - 10.5 mg/dL 07/20/2024 5:00 AM EDT [facility] Est Glomerular Filtration Rate - Male 122 mL/min/1. 73 m?? 07/20/2024 5:00 AM EDT [facility] Comment: [...] Garcia MD CHEMISTRY ORDERABLES Performing Organization Address City/[facility]/ZIP Co de Phone Number [facility] [place] [address] * Phosphorus (07/20/2024 3:41 AM EDT) Phosphorus 3.4 2.5 - 4.5 mg/dL 07/20/2024 4:40 AM EDT [facility] Blood VENOUS BLOOD SPECIMEN / Unknown IP Care Team Draw / Unknown 07/20/2024 3:41 AM EDT 07/20/2024 4:09 AM EDT Thony Garcia MD CHEMISTRY ORDERABLES [facility] [place] [address] * Magnesium (07/20/2024 3:41 AM EDT) Magnesium 0.90 0.69 - 1.07 mMol/L 07/20/2024 4:40 AM EDT [facility] Blood VENOUS BLOOD SPECIMEN / Unknown IP Care Team Draw / Unknown 07/20/2024 3:41 AM EDT 07/20/2024 4:09 AM EDT Thony Garcia MD CHEMISTRY ORDERABLES Performing Organization Address [facility] Co de Phone Number [facility] [place] [address] * (ABNORMAL) POC, GLUCOSE (07/20/2024 12:56 AM EDT) Glucometer, POC 342(H) 65 - 199 mg/dL 07/20/2024 12:58 AM EDT [facility] Comment:Supplemental ranges: <140 mg/dL before meals <180 mg/dL all other times of the day. Blood CAPILLARY BLOOD / Unknown 07/20/2024 12:56 AM EDT 07/20/2024 12:58 AM EDT Thony Garcia MD POINT OF CARE TEST O RDERABLES Performing Organization Address [facility] Co de Phone Number [facility] [place] [address] * (ABNORMAL) POC, GLUCOSE (07/19/2024 11:04 PM EDT) Glucometer, POC 296(H) 65 - 199 mg/dL 07/19/2024 11:05 PM EDT [facility] Comment:Supplemental ranges: <140 mg/dL before meals <180 mg/dL all other times of the day. Blood CAPILLARY BLOOD / Unknown 07/19/2024 11:04 PM EDT 07/19/2024 11:05 PM EDT Thony Garcia MD POINT OF CARE TEST O RDERABLES Performing Organization Address City/[facility]/ZIP Co de Phone Number [facility] [place] [address] * (ABNORMAL) POC, GLUCOSE (07/19/2024 7:38 PM EDT) Glucometer, POC 251(H) 65 - 199 mg/dL 07/19/2024 7:39 PM EDT [facility] Comment:Supplemental ranges: <140 mg/dL before meals <180 mg/dL all other times of the day. Blood CAPILLARY BLOOD / Unknown 07/19/2024 7:38 PM EDT 07/19/2024 7:39 PM EDT Thony Garcia MD POINT OF CARE TEST O RDERAHERNANDEZ Performing Organization Address [facility] Co de Phone Number [facility] [place] [address] * POC, GLUCOSE (07/19/2024 4:48 PM EDT) Glucometer, POC 171 65 - 199 mg/dL 07/19/2024 4:49 PM EDT [facility] Comment:Supplemental ranges: <140 mg/dL before meals <180 mg/dL all other times of the day. Blood CAPILLARY BLOOD / Unknown 07/19/2024 4:48 PM EDT 07/19/2024 4:49 PM EDT Thony Garcia MD POINT OF CARE TEST O GILDA Performing Organization Address [facility] Co de Phone Number [facility] [place] [address] * POC, GLUCOSE (07/19/2024 12:21 PM EDT) Glucometer, POC 143 65 - 199 mg/dL 07/19/2024 12:22 PM EDT [facility] Comment:Supplemental ranges: <140 mg/dL before meals <180 mg/dL all other times of the day. Blood CAPILLARY BLOOD / Unknown 07/19/2024 12:21 PM EDT 07/19/2024 12:22 PM EDT Thony Garcia MD POINT OF CARE TEST O GILDA [facility] [place] [address] * POC, GLUCOSE (07/19/2024 11:24 AM EDT) Glucometer, POC 111 65 - 199 mg/dL 07/19/2024 11:24 AM EDT [facility] Comment:Supplemental ranges: <140 mg/dL before meals <180 mg/dL all other times of the day. Blood CAPILLARY BLOOD / Unknown 07/19/2024 11:24 AM EDT 07/19/2024 11:24 AM EDT Thony Garcia MD POINT OF CARE TEST O RDERABLES Performing Organization Address [facility] Co de Phone Number [facility] [place] [address] * Anaerobic Culture (07/19/2024 9:51 AM EDT) Anaerobic Culture No anaerobic organisms isolated 07/23/2024 3:24 PM EDT [facility] Bone STRUCTURE OF TOE OF LEFT FOOT / Unknown 07/19/2024 9:51 AM EDT Comment:PERIPHERAL ARTERY DI SEASE Thony Garcia MD MICROBIOLOGY - GENER AL ORDERABLES Performing Organization Address [facility] Co de Phone Number [facility] [place] [address] * Bone Culture (07/19/2024 9:51 AM EDT) [...] - GENER AL ORDERABLES Performing Organization Address [facility] Co de Phone Number [facility] [place] [address] * AFB culture (07/19/2024 9:51 AM EDT) Acid Fast Bacilli Culture No acid fast bacilli isolated at 8 weeks. 09/13/2024 11:02 AM EST [facility] Bone STRUCTURE OF TOE OF LEFT FOOT / Unknown 07/19/2024 9:51 AM EDT 07/19/2024 10:08 AM EDT Comment:PERIPHERAL ARTERY DI SEASE Thony Garcia MD MICROBIOLOGY - GENER AL ORDERABLES Performing Organization Address [facility] Co de Phone Number [facility] [place] [address] * Fungus culture (07/19/2024 9:51 AM EDT) Fungus Culture No fungus isolated 08/22/2024 9:08 AM EDT [facility] Bone STRUCTURE OF TOE OF LEFT FOOT / Unknown 07/19/2024 9:51 AM EDT 07/19/2024 10:08 AM EDT Comment:PERIPHERAL ARTERY DI SEASE Thony Garcia MD MICROBIOLOGY - GENER AL ORDERABLES Performing Organization Address [facility] Co de Phone Number [facility] [place] [address] * Surgical Pathology (07/19/2024 9:49 AM EDT) Case Report Surgical Pathology Report ? Case: [id number] ? Authorizing Provider: ??Thony Garcia MD ?Collected: ? 07/19/2024 0949 ? Ordering Location: ? Main Operating Room [facility] ?? Received: ?07/19/2024 1009 ? [facility] ? Pathologist: ? Benjamin Shen [...] Sections/Process ing: Blocks submitted for decalcification: A1-A2. Hotel Operation [employer] sections in 2 cassettes as follows: A1-A2: Complete longitudinal section of digit cmk 07/26/2024 1:24 PM EDT [facility] Result Note Routine 07/26/2024 1:24 PM EDT [facility] Tissue STRUCTURE OF TOE OF LEFT FOOT / Unknown 07/19/2024 9:49 AM EDT 07/19/2024 10:09 AM EDT Comment:PERIPHERAL ARTERY DI SEASE Thony Garcia MD PATHOLOGY/CYTOLOGY O RDERAHERNANDEZ [facility] [place] [address] * POC, GLUCOSE (07/19/2024 7:21 AM EDT) Glucometer, POC 195 65 - 199 mg/dL 07/19/2024 7:22 AM EDT [facility] Comment:Supplemental ranges: <140 mg/dL before meals <180 mg/dL all other times of the day. Blood CAPILLARY BLOOD / Unknown 07/19/2024 7:21 AM EDT 07/19/2024 7:22 AM EDT Thony Garcia MD POINT OF CARE TEST O RDERABLES Performing Organization Address [facility] Co de Phone Number [facility] [place] [address] * Heparin (unfractionated) Level (07/19/2024 6:29 AM [...] MD HEMATOLOGY ORDERABLE S Performing Organization Address [facility]/ZIP Co de Phone Number [facility] [place] [address] * POC, GLUCOSE (07/19/2024 4:24 AM EDT) Glucometer, POC 118 65 - 199 mg/dL 07/19/2024 4:24 AM EDT [facility] Comment:Supplemental ranges: <140 mg/dL before meals <180 mg/dL all other times of the day. Blood CAPILLARY BLOOD / Unknown 07/19/2024 4:24 AM EDT 07/19/2024 4:24 AM EDT Thony Garcia MD POINT OF CARE TEST O RDERABLES [facility] [place] [address] * (ABNORMAL) Basic Metabolic Panel (07/19/2024 3:45 AM EDT) Glucose 117 65 - 199 mg/dL 07/19/2024 4:40 AM EDT [facility] Comment:Glucose Concentratio n >=200 mg/dL plus symptoms is consistent with Diabetes Mellitus. Blood Urea Nitrogen 7(L) 10 - 20 mg/dL 07/19/2024 4:[address] [facility] Creatinine 0.56(L) 0.80 - 1.50 mg/dL 07/19/2024 4:[address] [facility] Sodium 138 135 - 145 mMol/L 07/19/2024 4:[address] [facility] Potassium 3.9 3.5 - 5.0 mMol/L 07/19/2024 4:[address] [facility] Chloride 103 98 - 107 mMol/L 07/19/2024 4:[address] [facility] Carbon Dioxide 23 22 - 31 mMol/L 07/19/2024 4:[address] [facility] Anion Gap 12 5 - 15 mMol/L 07/19/2024 4:[address] [facility] Calcium 9.6 8.5 - 10.5 mg/dL 07/19/2024 4:[address] [facility] Est Glomerular Filtration Rate - Male 120 mL/min/1. 73 m?? 07/19/2024 4:[address] [facility] Comment: This patient's estimated GFR [...] MD CHEMISTRY ORDERABLES [facility] [place] [address] * (ABNORMAL) CBC (with Diff) (07/19/2024 3:45 AM EDT) White Blood Cell 12.45(H) 4.00 - 9.50 x10(3)/mc L 07/19/2024 4:09 AM EDT [facility] Red Blood Cell 4.72 4.58 - 5.54 x10(6)/mc L 07/19/2024 4:09 AM EDT [facility] Hemoglobin 13.6(L) 13.7 - 16.5 g/dL 07/19/2024 4:[address] [facility] Hematocrit 41.0 40.5 - 48.5 % 07/19/2024 4:09 AM EDT [facility] Mean Cell Volume 86.9 82.9 - 93.1 fL 07/19/2024 4:[address] [facility] Mean Cell Hemoglobin 28.8 27.5 - 32.1 pg 07/19/2024 4:[address] [facility] Mean Cell Hemoglobin Concentration 33.2 32.0 - 35.7 g/dL 07/19/2024 4:[address] [facility] Platelet 421(H) 145 - 357 x10(3)/mc L [facility] Mean Platelet Volume 9.4 7.6 - 12.9 fL 07/19/2024 4:[address] [facility] RDW Standard Deviation 41.3 36.0 - 45.0 fL 07/19/2024 4:[address] [facility] RDW coefficient of variation 13.1 11.4 - 13.8 % 07/19/2024 4:[address] [facility] NRBC% auto 0.0 % 07/19/2024 4:[address] [facility] NRBC Absolute 0.00 0.00 - 0.00 x10(3)/mc L 07/19/2024 4:[address] [facility] Neutrophil % 66.6 % 07/19/2024 4:[address] [facility] Neutrophil Absolute (ANC) - Automated 8.29(H) 1.70 - 6.10 x10(3)/mc L 07/19/2024 4:[address] [facility] Lymph % 22.6 % 07/19/2024 4:[address] [facility] Lymph Absolute 2.81 0.90 - 3.20 x10(3)/mc L 07/19/2024 4:[address] [facility] Monocyte % 7.5 % 07/19/2024 4:[address] [facility] Monocyte Absolute 0.93(H) 0.30 - 0.90 x10(3)/mc L 07/19/2024 4:[address] [facility] Eos % 1.9 % 07/19/2024 4:[address] [facility] Eos Absolute 0.24 0.00 - 0.40 x10(3)/mc L 07/19/2024 4:[address] [facility] Basophil % 0.8 % 07/19/2024 4:[address] [facility] Baso Absolute 0.10 0.00 - [...] HEMATOLOGY ORDERABLE S [facility] [place] [address] * Phosphorus (07/19/2024 3:45 AM EDT) Phosphorus 4.3 2.5 - 4.5 mg/dL 07/19/2024 4:40 AM EDT [facility] Blood VENOUS BLOOD SPECIMEN / Unknown IP Care Team Draw / Unknown 07/19/2024 3:45 AM EDT 07/19/2024 4:00 AM EDT Thony Garcia MD CHEMISTRY ORDERABLES Performing Organization Address City/[facility]/ZIP Co de Phone Number [facility] [place] [address] * Magnesium (07/19/2024 3:45 AM EDT) Magnesium 0.89 0.69 - 1.07 mMol/L 07/19/2024 4:40 AM EDT [facility] Blood VENOUS BLOOD SPECIMEN / Unknown IP Care Team Draw / Unknown 07/19/2024 3:45 AM EDT 07/19/2024 4:00 AM EDT Thony Garcia MD CHEMISTRY ORDERABLES [facility] [place] [address] * POC, GLUCOSE (07/19/2024 12:01 AM EDT) Glucometer, POC 186 65 - 199 mg/dL 07/19/2024 12:02 AM EDT [facility] Comment:Supplemental ranges: <140 mg/dL before meals <180 mg/dL all other times of the day. Blood CAPILLARY BLOOD / Unknown 07/19/2024 12:01 AM EDT 07/19/2024 12:02 AM EDT Thony Garcia MD POINT OF CARE TEST O GILDA Performing Organization Address City/[facility]/ZIP Co de Phone Number [facility] [place] [address] * POC, GLUCOSE (07/18/2024 9:46 PM EDT) Glucometer, POC 185 65 - 199 mg/dL 07/18/2024 9:47 PM EDT [facility] Comment:Supplemental ranges: <140 mg/dL before meals <180 mg/dL all other times of the day. Blood CAPILLARY BLOOD / Unknown 07/18/2024 9:46 PM EDT 07/18/2024 9:47 PM EDT Thony Garcia MD POINT OF CARE TEST O GILDA [facility] [place] [address] * POC, GLUCOSE (07/18/2024 3:20 PM EDT) Glucometer, POC 134 65 - 199 mg/dL 07/18/2024 3:20 PM EDT [facility] Comment:Supplemental ranges: <140 mg/dL before meals <180 mg/dL all other times of the day. Blood CAPILLARY BLOOD / Unknown 07/18/2024 3:20 PM EDT 07/18/2024 3:21 PM EDT Thony Garcia MD POINT OF CARE TEST O RDERABLES [facility] [place] [address] * (ABNORMAL) POC, GLUCOSE (07/18/2024 11:53 AM EDT) Glucometer, POC 244(H) 65 - 199 mg/dL 07/18/2024 11:53 AM EDT [facility] Comment:Supplemental ranges: <140 mg/dL before meals <180 mg/dL all other times of the day. Blood CAPILLARY BLOOD / Unknown 07/18/2024 11:53 AM EDT 07/18/2024 11:54 AM EDT Thony Garcia MD POINT OF CARE TEST O RDERABLES [facility] [place] [address] * Vancomycin Level, Random (07/18/2024 8:01 AM EDT) [facility] Vancomycin, Random 17.2 mg/L 2023 9:40 AM EDT [facility] Comment:This level is for de termination of the patient's vancomycin aiyv-jaccd-qst-curve (AUC) value. Contact the inpatient pharmacy for interpretation. Blood VENOUS BLOOD SPECIMEN / Unknown IP Care Team Draw / Unknown 07/18/2024 8:01 AM EDT 07/18/2024 8:39 AM EDT Thony Garcia MD CHEMISTRY ORDERABLES [facility] [place] [address] * POC, GLUCOSE (07/18/2024 7:21 AM EDT) Glucometer, POC 177 65 - 199 mg/dL 07/18/2024 7:22 AM EDT [facility] Comment:Supplemental ranges: <140 mg/dL before meals <180 mg/dL all other times of the day. Blood CAPILLARY BLOOD / Unknown 07/18/2024 7:21 AM EDT 07/18/2024 7:22 AM EDT Thony Garcia MD POINT OF CARE TEST O RDERABLES Performing Organization Address [facility] Co de Phone Number [facility] [place] [address] * Heparin (unfractionated) Level (07/18/2024 3:33 AM [...] 0.3-0.7 IU/mL Thrombosis Prevention (e.g. atrial fibrillation, kealyn-procedural bridging, mechanical valves): ? 0.3-0.7 IU/mL Acute [...] MD HEMATOLOGY ORDERABLE S Performing Organization Address [facility]/ZIP Co de Phone Number [facility] [place] [address] * (ABNORMAL) Basic Metabolic Panel (07/18/2024 3:33 AM EDT) Glucose 170 65 - 199 mg/dL 07/18/2024 4:[address] [facility] Comment:Glucose Concentratio n >=200 mg/dL plus symptoms is consistent with Diabetes Mellitus. Blood Urea Nitrogen 8(L) 10 - 20 mg/dL 07/18/2024 4:[address] [facility] Creatinine 0.53(L) 0.80 - 1.50 mg/dL 07/18/2024 4:[address] [facility] Sodium 136 135 - 145 mMol/L 07/18/2024 4:[address] [facility] Potassium 4.3 3.5 - 5.0 mMol/L 07/18/2024 4:[address] [facility] Chloride 101 98 - 107 mMol/L 07/18/2024 4:[address] [facility] Carbon Dioxide 23 22 - 31 mMol/L 07/18/2024 4:[address] [facility] Anion Gap 12 5 - 15 mMol/L 07/18/2024 4:[address] [facility] Calcium 9.2 8.5 - 10.5 mg/dL 07/18/2024 4:[address] [facility] Est Glomerular Filtration Rate - Male 122 mL/min/1. 73 m?? 07/18/2024 4:[address] [facility] Comment: This patient's estimated GFR [...] MD CHEMISTRY ORDERABLES [facility] [place] [address] * (ABNORMAL) CBC (with Diff) (07/18/2024 3:33 [...] - 93.1 fL 07/18/2024 4:26 AM EDT [facility] Mean Cell Hemoglobin 29.5 27.5 - 32.1 pg 07/18/2024 4:26 AM EDT [facility] Mean Cell Hemoglobin Concentration 33.3 32.0 - 35.7 g/dL 07/18/2024 4:26 AM EDT [facility] Platelet 392(H) 145 - 357 x10(3)/mc L 07/18/2024 4:26 AM EDT [facility] Mean Platelet Volume 10.2 7.6 - 12.9 fL 07/[facility]24 [facility] Standard Deviation 42.0 36.0 - 45.0 fL 07/18/2024 [facility] RDW coefficient of variation 13.1 11.4 - 13.8 % 07/18/2024 4:[address] [facility] NRBC% auto 0.0 % 07/18/2024 4:[address] [facility] NRBC Absolute 0.00 0.00 - 0.00 x10(3)/mc L 07/18/2024 4:[address] [facility] Neutrophil % 68.4 % 07/18/2024 4:[address] [facility] Neutrophil Absolute (ANC) - Automated 7.91(H) 1.70 - 6.10 x10(3)/mc L 07/18/2024 4:[address] [facility] Lymph % 21.3 % 07/18/2024 4:[address] [facility] Lymph Absolute 2.46 0.90 - 3.20 x10(3)/mc L 07/18/2024 4:[address] [facility] Monocyte % 7.2 % 07/18/2024 4:[address] [facility] Monocyte Absolute 0.83 0.30 - 0.90 x10(3)/mc L 07/18/2024 4:[address] [facility] Eos % 1.7 % 07/18/2024 4:[address] [facility] Eos Absolute 0.20 0.00 - 0.40 x10(3)/mc L 07/18/2024 4:[address] [facility] Basophil % 0.8 % 07/18/2024 4:[address] [facility] Baso Absolute 0.09 0.00 - 0.10 x10(3)/mc L 07/18/2024 4:[address] [facility] Immature Gran % 0.6 % 4:[address] [facility] Immature Gran Absolute 0.07(H) 0.00 - 0.04 x10(3)/mc L 07/18/2024 4:[address] [facility] Blood VENOUS BLOOD SPECIMEN / Unknown IP Care Team Draw / Unknown 07/18/2024 3:33 AM EDT 07/18/2024 4:21 AM EDT Thony Garcia MD HEMATOLOGY ORDERABLE S [facility] [place] [address] * Phosphorus (07/18/2024 3:33 AM EDT) Phosphorus 3.7 2.5 - 4.5 mg/dL 07/18/2024 4:50 AM EDT [facility] Blood VENOUS BLOOD SPECIMEN / Unknown IP Care Team Draw / Unknown 07/18/2024 3:33 AM EDT 07/18/2024 4:21 AM EDT Thony Garcia MD CHEMISTRY ORDERABLES Performing Organization Address City/[facility]/ZIP Co de Phone Number [facility] [place] [address] * Magnesium (07/18/2024 3:33 AM EDT) Magnesium 0.88 0.69 - 1.07 mMol/L 07/18/2024 4:50 AM EDT [facility] Blood VENOUS BLOOD SPECIMEN / Unknown IP Care Team Draw / Unknown 07/18/2024 3:33 AM EDT 07/18/2024 4:21 AM EDT Thony Garcia MD CHEMISTRY ORDERABLES Performing Organization Address City/[facility]/ZIP Co de Phone Number [facility] [place] [address] * LDL Cholesterol, Direct (07/18/2024 3:33 AM [...] MD CHEMISTRY ORDERABLES [facility] [place] [address] * HDL/Cholesterol Profile (07/18/2024 3:33 AM EDT) [...] 3:33 AM EDT 07/18/2024 4:21 AM EDT Narrative [facility] - 07/18/2024 4:50 AM EDT It [...] ACC/AHA Guidelines (most recently Johann et [facility]. [facility] 08/11/22): * For individuals with atherosclerotic [...] Garcia MD CHEMISTRY ORDERABLES Performing Organization Address [facility]/ZIP Co de Phone Number [facility] [place] [address] * (ABNORMAL) POC, GLUCOSE (07/18/2024 3:21 AM EDT) Glucometer, POC 200(H) 65 - 199 mg/dL 07/18/2024 3:22 AM EDT [facility] Comment:Supplemental ranges: <140 mg/dL before meals <180 mg/dL all other times of the day. Blood CAPILLARY BLOOD / Unknown 07/18/2024 3:21 AM EDT 07/18/2024 3:22 AM EDT Thony Garcia MD POINT OF CARE TEST O RDERABLES Performing Organization Address [facility] Co de Phone Number [facility] [place] [address] * (ABNORMAL) POC, GLUCOSE (07/18/2024 12:44 AM EDT) Glucometer, POC 216(H) 65 - 199 mg/dL 07/18/2024 12:44 AM EDT [facility] Comment:Supplemental ranges: <140 mg/dL before meals <180 mg/dL all other times of the day. Blood CAPILLARY BLOOD / Unknown 07/18/2024 12:44 AM EDT 07/18/2024 12:44 AM EDT Thony Garcia MD POINT OF CARE TEST O RDERABLES [facility] [place] [address] * (ABNORMAL) POC, GLUCOSE (07/17/2024 9:02 PM EDT) Glucometer, POC 294(H) 65 - 199 mg/dL 07/17/2024 9:02 PM EDT [facility] Comment:Supplemental ranges: <140 mg/dL before meals <180 mg/dL all other times of the day. Blood CAPILLARY BLOOD / Unknown 07/17/2024 9:02 PM EDT 07/17/2024 9:03 PM EDT Thony Garcia MD POINT OF CARE TEST O RDERABLES Performing Organization Address [facility] Co de Phone Number [facility] [place] [address] * (ABNORMAL) POC, GLUCOSE (07/17/2024 4:07 PM EDT) Glucometer, POC 219(H) 65 - 199 mg/dL 07/17/2024 4:07 PM EDT [facility] Comment:Supplemental ranges: <140 mg/dL before meals <180 mg/dL all other times of the day. Blood CAPILLARY BLOOD / Unknown 07/17/2024 4:07 PM EDT 07/17/2024 4:07 PM EDT Thony Garcia MD POINT OF CARE TEST O DIMITRIERAHERNANDEZ Performing Organization Address [facility] Co de Phone Number [facility] [place] [address] * (ABNORMAL) POC, GLUCOSE (07/17/2024 11:31 AM EDT) Glucometer, POC 255(H) 65 - 199 mg/dL 07/17/2024 11:32 AM EDT [facility] Comment:Supplemental ranges: <140 mg/dL before meals <180 mg/dL all other times of the day. Blood CAPILLARY BLOOD / Unknown 07/17/2024 11:31 AM EDT 07/17/2024 11:32 AM EDT Thony Garcia MD POINT OF CARE TEST O RDTYESHA Performing Organization Address City/[facility] Co de Phone Number [facility] [place] [address] * POC, GLUCOSE (07/17/2024 7:38 AM EDT) Glucometer, POC 112 65 - 199 mg/dL 07/17/2024 7:38 AM EDT [facility] Comment:Supplemental ranges: <140 mg/dL before meals <180 mg/dL all other times of the day. Blood CAPILLARY BLOOD / Unknown 07/17/2024 7:38 AM EDT 07/17/2024 7:38 AM EDT Thony Garcia MD POINT OF CARE TEST O RDERABLES [facility] [place] [address] * ELEN, legs, multiple levels (07/17/2024 6:31 AM EDT) VB Text Report Department: Vascular Surgery Lab Patient: [id number] (GEOVANNA DIXON) CPT: 78508 Referring Physician: VIBHA TIERNEY ?? Indications: PAD [...] ? Dorsalis Pedis (Ankle) Artery ?83 ?0.55 ??[place]-Biphasic ? Posterior Tibial (Ankle) Artery ??87 ?0.57 [...] EDT Vibha Tierney APRN VASCULAR ORDERABLE S Performing Organization Address City/[facility]/ZIP Co de Phone Number [facility] * (ABNORMAL) POC, GLUCOSE (07/17/2024 4:12 AM EDT) Glucometer, POC 205(H) 65 - 199 mg/dL 07/17/2024 4:12 AM EDT [facility] Comment:Supplemental ranges: <140 mg/dL before meals <180 mg/dL all other times of the day. Blood CAPILLARY BLOOD / Unknown 07/17/2024 4:12 AM EDT 07/17/2024 4:12 AM EDT Thony Garcia MD POINT OF CARE TEST O RDERABLES Performing Organization Address City/[facility] Co de Phone Number [facility] [place] [address] * Heparin (unfractionated) Level (07/17/2024 3:42 AM [...] MD HEMATOLOGY ORDERABLE S Performing Organization Address [facility] Co de Phone Number [facility] [place] [address] * Phosphorus (07/17/2024 3:42 AM EDT) Phosphorus 3.6 2.5 - 4.5 mg/dL 07/17/2024 4:47 AM EDT [facility] Blood VENOUS BLOOD SPECIMEN / Unknown IP Care Team Draw / Unknown 07/17/2024 3:42 AM EDT 07/17/2024 4:15 AM EDT Thony Garcia MD CHEMISTRY ORDERABLES Performing Organization Address [facility] Co de Phone Number [facility] [place] [address] * Magnesium (07/17/2024 3:42 AM EDT) Magnesium 0.78 0.69 - 1.07 mMol/L 07/17/2024 4:47 AM EDT [facility] Blood VENOUS BLOOD SPECIMEN / Unknown IP Care Team Draw / Unknown 07/17/2024 3:42 AM EDT 07/17/2024 4:15 AM EDT Thony Garcia MD CHEMISTRY ORDERABLES Performing Organization Address [facility] Co de Phone Number [facility] [place] [address] * (ABNORMAL) Basic Metabolic Panel (07/17/2024 3:42 AM EDT) Glucose 225(H) 65 - 199 mg/dL 07/17/2024 4:[address] [facility] Comment:Glucose Concentratio n >=200 mg/dL plus symptoms is consistent with Diabetes Mellitus. Blood Urea Nitrogen 9(L) 10 - 20 mg/dL 07/17/2024 4:[address] [facility] Creatinine 0.49(L) 0.80 - 1.50 mg/dL 07/17/2024 4:[address] [facility] Sodium 135 135 - 145 mMol/L 07/17/2024 4:[address] [facility] Potassium 3.7 3.5 - 5.0 mMol/L 07/17/2024 4:[address] [facility] Chloride 103 98 - 107 mMol/L 07/17/2024 4:[address] [facility] Carbon Dioxide 21(L) 22 - 31 mMol/L 07/17/2024 4:[address] [facility] Anion Gap 11 5 - 15 mMol/L 07/17/2024 4:[address] [facility] Calcium 9.1 8.5 - 10.5 mg/dL 07/17/2024 4:[address] [facility] Est Glomerular Filtration Rate - Male 125 mL/min/1. 73 m?? 07/17/2024 4:[address] [facility] Comment: This patient's estimated GFR [...] MD CHEMISTRY ORDERABLES [facility] [place] [address] * (ABNORMAL) CBC (with Diff) (07/17/2024 3:42 AM EDT) White Blood Cell 11.02(H) 4.00 - 9.50 x10(3)/mc L 07/17/2024 4:21 AM EDT [facility] Red Blood Cell 4.43(L) 4.58 - 5.54 x10(6)/mc L 07/17/2024 4:[address] [facility] Hemoglobin 13.1(L) 13.7 - 16.5 g/dL 07/17/2024 4:[address] [facility] Hematocrit 38.8(L) 40.5 - 48.5 % 07/17/2024 4:[address] [facility] Mean Cell Volume 87.6 82.9 - 93.1 fL 07/17/2024 4:[address] [facility] Mean Cell Hemoglobin 29.6 27.5 - 32.1 pg 07/17/2024 4:[address] [facility] Mean Cell Hemoglobin Concentration 33.8 32.0 - 35.7 g/dL 07/17/2024 4:[address] [facility] Platelet 367(H) 145 - 357 x10(3)/mc L 07/17/2024 4:[address] [facility] Mean Platelet Volume 9.7 7.6 - 12.9 fL 07/17/2024 4:[address] [facility] RDW Standard Deviation 41.5 36.0 - 45.0 fL 07/17/2024 4:[address] [facility] RDW coefficient of variation 13.0 11.4 - 13.8 % 07/17/2024 4:[address] [facility] NRBC% auto 0.0 % 07/17/2024 4:[address] [facility] NRBC Absolute 0.00 0.00 - 0.00 x10(3)/mc L 07/17/2024 4:[address] [facility] Neutrophil % 70.4 % 07/17/2024 4:[address] [facility] Neutrophil Absolute (ANC) - Automated 7.76(H) 1.70 - 6.10 x10(3)/mc L 07/17/2024 4:[address] [facility] Lymph % 20.9 % 07/17/2024 4:[address] [facility] Lymph Absolute 2.30 0.90 - 3.20 x10(3)/mc L 07/17/2024 4:[address] [facility] Monocyte % 6.0 % 07/17/2024 4:[address] [facility] Monocyte Absolute 0.66 0.30 - 0.90 x10(3)/mc L 07/17/2024 4:[address] [facility] Eos % 1.6 % 07/17/2024 4:[address] [facility] Eos Absolute 0.18 0.00 - 0.40 x10(3)/mc L 07/17/2024 4:[address] [facility] Basophil % 0.5 % 07/17/2024 4:[address] [facility] Baso Absolute 0.05 0.00 - 0.10 x10(3)/mc L 07/17/2024 4:[address] [facility] Immature Gran % 0.6 % 4:[address] [facility] Immature Gran Absolute 0.07(H) 0.00 - 0.04 x10(3)/mc L 07/17/2024 4:21 AM EDT [facility] Blood VENOUS BLOOD SPECIMEN / Unknown IP Care Team Draw / Unknown 07/17/2024 3:42 AM EDT 07/17/2024 4:15 AM EDT Thony Garcia MD HEMATOLOGY ORDERABLE S Performing Organization Address [facility] Co de Phone Number [facility] [place] [address] * (ABNORMAL) POC, GLUCOSE (07/17/2024 2:25 AM EDT) Glucometer, POC 262(H) 65 - 199 mg/dL 07/17/2024 2:25 AM EDT [facility] Comment:Supplemental ranges: <140 mg/dL before meals <180 mg/dL all other times of the day. Blood CAPILLARY BLOOD / Unknown 07/17/2024 2:25 AM EDT 07/17/2024 2:25 AM EDT Thony Garcia MD POINT OF CARE TEST O RDERAHERNANDEZ Performing Organization Address [facility] Phone Number [facility] [place] [address] * (ABNORMAL) POC, GLUCOSE (07/17/2024 12:19 AM EDT) Glucometer, POC 262(H) 65 - 199 mg/dL 07/17/2024 12:19 AM EDT [facility] Comment:Supplemental ranges: <140 mg/dL before meals <180 mg/dL all other times of the day. Blood CAPILLARY BLOOD / Unknown 07/17/2024 12:19 AM EDT 07/17/2024 12:20 AM EDT Thony Garcia MD POINT OF CARE TEST O GILDA Performing Organization Address [facility] Co de Phone Number [facility] [place] [address] * (ABNORMAL) POC, GLUCOSE (07/16/2024 8:22 PM EDT) Glucometer, POC 217(H) 65 - 199 mg/dL 07/16/2024 8:23 PM EDT [facility] Comment:Supplemental ranges: <140 mg/dL before meals <180 mg/dL all other times of the day. Blood CAPILLARY BLOOD / Unknown 07/16/2024 8:22 PM EDT 07/16/2024 8:23 PM EDT Thony Garcia MD POINT OF CARE TEST O GILDA Performing Organization Address [facility] Co de Phone Number [facility] [place] [address] * POC, GLUCOSE (07/16/2024 3:47 PM EDT) Glucometer, POC 184 65 - 199 mg/dL 07/16/2024 3:47 PM EDT [facility] Comment:Supplemental ranges: <140 mg/dL before meals <180 mg/dL all other times of the day. Blood CAPILLARY BLOOD / Unknown 07/16/2024 3:47 PM EDT 07/16/2024 3:48 PM EDT Thony Garcia MD POINT OF CARE TEST Stephanie VO Performing Organization Address [facility] Co de Phone Number [facility] [place] [address] * Heparin (unfractionated) Level (07/16/2024 3:39 PM [...] MD HEMATOLOGY ORDERABLE S Performing Organization Address City/[facility]/ZIP Co de Phone Number [facility] [place] [address] * Potassium (07/16/2024 3:39 PM EDT) Pathologist [facility] Potassium 3.9 3.5 - 5.0 mMol/L 07/16/2024 4:15 PM EDT [facility] Blood VENOUS BLOOD SPECIMEN / Unknown IP Care Team Draw / Unknown 07/16/2024 3:39 PM EDT 07/16/2024 3:47 PM EDT Hermila White APRN CHEMISTRY ORDERABL ES [facility] [place] [address] * MRSA PCR Screen (07/16/2024 2:07 PM EDT) MRSA PCR Not Detected 07/17/2024 6:04 PM EDT [facility] Swab BOTH ANTERIOR NARES / Unknown Non Blood Collection / Unknown 07/16/2024 2:07 PM EDT 07/16/2024 2:13 PM EDT Narrative [facility] - 07/17/2024 6:04 PM EDT This test was performed using the Xpert MRSA NxG test kit and is run on the [employer] GeneXpert Dx System. This test is cleared by the U.[place]. Food and Drug Administration for clinical use and its performance characteristics have been verified by the [facility] at [facility]. This test was performed using the Xpert MRSA NxG test kit and is run on the [employer] GeneXpert Dx System. This test is cleared by the U.S. Food and Drug Administration for clinical use and its performance characteristics have been verified by the [facility] at [facility]. Hermila White APRN MOLECULAR ORDERABL ES Performing Organization Address City/[facility] Co de Phone Number [facility] [place] [address] * POC, GLUCOSE (07/16/2024 1:33 PM EDT) Glucometer, POC 183 65 - 199 mg/dL 07/16/2024 1:33 PM EDT [facility] Comment:Supplemental ranges: <140 mg/dL before meals <180 mg/dL all other times of the day. Blood CAPILLARY BLOOD / Unknown 07/16/2024 1:33 PM EDT 07/16/2024 1:33 PM EDT Thony Garcia MD POINT OF CARE TEST O RDERABLES Performing Organization Address [facility]/The [facility]/ZIP Co de Phone Number [facility] [place] [address] * (ABNORMAL) POC, GLUCOSE (07/16/2024 11:41 AM EDT) Glucometer, POC 259(H) 65 - 199 mg/dL 07/16/2024 11:41 AM EDT [facility] Comment:Supplemental ranges: <140 mg/dL before meals <180 mg/dL all other times of the day. Blood CAPILLARY BLOOD / Unknown 07/16/2024 11:41 AM EDT 07/16/2024 11:41 AM EDT Thony Garcia MD POINT OF CARE TEST O RDERABLES Performing Organization Address [facility] Co de Phone Number [facility] [place] [address] * Heparin (unfractionated) Level (07/16/2024 9:41 AM [...] MD HEMATOLOGY ORDERABLE S Performing Organization Address [facility]/ZIP Co de Phone Number [facility] [place] [address] * (ABNORMAL) POC, GLUCOSE (07/16/2024 7:10 AM EDT) Glucometer, POC 205(H) 65 - 199 mg/dL 07/16/2024 7:11 AM EDT [facility] Comment:Supplemental ranges: <140 mg/dL before meals <180 mg/dL all other times of the day. Blood CAPILLARY BLOOD / Unknown 07/16/2024 7:10 AM EDT 07/16/2024 7:11 AM EDT Thony Garcia MD POINT OF CARE TEST O RDERABLES Performing Organization Address City/[facility]/ZIP Co de Phone Number [facility] [place] [address] * (ABNORMAL) Potassium (07/16/2024 4:15 AM EDT) Potassium 3.2(L) 3.5 - 5.0 mMol/L 07/16/2024 4:53 AM EDT [facility] Blood VENOUS BLOOD SPECIMEN / Unknown IP Care Team Draw / Unknown 07/16/2024 4:15 AM EDT 07/16/2024 4:23 AM EDT Thony Garcia MD CHEMISTRY ORDERABLES Performing Organization Address [facility] Co de Phone Number [facility] [place] [address] * Phosphorus (07/16/2024 4:15 AM EDT) Phosphorus 3.7 2.5 - 4.5 mg/dL 07/16/2024 4:53 AM EDT [facility] Blood VENOUS BLOOD SPECIMEN / Unknown IP Care Team Draw / Unknown 07/16/2024 4:15 AM EDT 07/16/2024 4:23 AM EDT Thony Garcia MD CHEMISTRY ORDERABLES Performing Organization Address City/[facility] Co de Phone Number [facility] [place] [address] * POC, GLUCOSE (07/16/2024 4:14 AM EDT) Glucometer, POC 187 65 - 199 mg/dL 07/16/2024 4:17 AM EDT [facility] Comment:Supplemental ranges: <140 mg/dL before meals <180 mg/dL all other times of the day. Blood CAPILLARY BLOOD / Unknown 07/16/2024 4:14 AM EDT 07/16/2024 4:17 AM EDT Thony Garcia MD POINT OF CARE TEST O GILDA Performing Organization Address City/[facility]/ZIP Co de Phone Number [facility] [place] [address] * (ABNORMAL) POC, GLUCOSE (07/16/2024 2:07 AM EDT) Glucometer, POC 254(H) 65 - 199 mg/dL 07/16/2024 2:08 AM EDT [facility] Comment:Supplemental ranges: <140 mg/dL before meals <180 mg/dL all other times of the day. Blood CAPILLARY BLOOD / Unknown 07/16/2024 2:07 AM EDT 07/16/2024 2:08 AM EDT Thony Garcia MD POINT OF CARE TEST Stephanie VO Performing Organization Address City/[facility] Co de Phone Number [facility] [place] [address] * Heparin (unfractionated) Level (07/16/2024 2:07 AM [...] MD HEMATOLOGY ORDERABLE S Performing Organization Address [facility]/ZIP Co de Phone Number [facility] [place] [address] * Magnesium (07/16/2024 2:07 AM EDT) Magnesium 0.83 0.69 - 1.07 mMol/L 07/16/2024 2:47 AM EDT [facility] Blood VENOUS BLOOD SPECIMEN / Unknown IP Care Team Draw / Unknown 07/16/2024 2:07 AM EDT 07/16/2024 2:14 AM EDT Thony Garcia MD CHEMISTRY ORDERABLES Performing Organization Address City/[facility]/ZIP Co de Phone Number [facility] [place] [address] * (ABNORMAL) Basic Metabolic Panel (07/16/2024 2:07 AM EDT) Glucose 248(H) 65 - 199 mg/dL 07/16/2024 2:57 AM EDT [facility] Comment:Glucose Concentratio n >=200 mg/dL plus symptoms is consistent with Diabetes Mellitus. Blood Urea Nitrogen 8(L) 10 - 20 mg/dL 07/16/2024 2:57 AM EDT [facility] Creatinine 0.42(L) 0.80 - 1.50 mg/dL 07/16/2024 2:57 AM EDT [facility] Sodium 135 135 - 145 mMol/L 07/16/2024 2:57 AM EDT [facility] Potassium 07/16/2024 2:57 AM EDT [facility] Comment:Unable to report due to hemolysis Chloride 101 98 - 107 mMol/L 07/16/2024 2:57 AM EDT [facility] Carbon Dioxide 22 22 - 31 mMol/L 07/16/2024 2:57 AM EDT [facility] Anion Gap 12 5 - 15 mMol/L 07/16/2024 2:57 AM EDT [facility] Calcium 9.0 8.5 - 10.5 mg/dL 07/16/2024 2:57 AM EDT [facility] Est Glomerular Filtration Rate - Male 131 mL/min/1. 73 m?? 07/16/2024 2:57 AM EDT [facility] Comment: [...] MD CHEMISTRY ORDERABLES [facility] [place] [address] * (ABNORMAL) CBC (with Diff) (07/16/2024 2:07 AM EDT) White Blood Cell 11.08(H) 4.00 - 9.50 x10(3)/mc L 07/16/2024 2:23 AM EDT [facility] Red Blood Cell 4.29(L) 4.58 - 5.54 x10(6)/mc L 07/16/2024 2:23 AM EDT [facility] Hemoglobin 12.7(L) 13.7 - 16.5 g/dL 07/16/2024 2:[address] [facility] Hematocrit 36.6(L) 40.5 - 48.5 % 07/16/2024 2:[address] [facility] Mean Cell Volume 85.3 82.9 - 93.1 fL 07/16/2024 2:[address] [facility] Mean Cell Hemoglobin 29.6 27.5 - 32.1 pg 07/16/2024 2:[address] [facility] Mean Cell Hemoglobin Concentration 34.7 32.0 - 35.7 g/dL 07/16/2024 2:[address] [facility] Platelet 363(H) 145 - 357 x10(3)/mc L 07/16/2024 2:[address] [facility] Mean Platelet Volume 10.3 7.6 - 12.9 fL 07/16/2024 2:[address] [facility] RDW Standard Deviation 39.2 36.0 - 45.0 fL 07/16/2024 2:[address] [facility] RDW coefficient of variation 12.7 11.4 - 13.8 % 07/16/2024 2:[address] [facility] NRBC% auto 0.0 % 07/16/2024 2:[address] [facility] NRBC Absolute 0.00 0.00 - 0.00 x10(3)/mc L 07/16/2024 2:[address] [facility] Neutrophil % 66.2 % 07/16/2024 2:[address] [facility] Neutrophil Absolute (ANC) - Automated 7.33(H) 1.70 - 6.10 x10(3)/mc L 07/16/2024 2:[address] [facility] Lymph % 24.2 % 07/16/2024 2:[address] [facility] Lymph Absolute 2.68 0.90 - 3.20 x10(3)/mc L 07/16/2024 2:23 AM EDT [facility] Monocyte % 6.9 % 07/16/2024 2:23 AM EDT [facility] Monocyte Absolute 0.77 0.30 - 0.90 x10(3)/mc L 07/16/2024 2:23 AM EDT [facility] Eos % 1.6 % 07/16/2024 2:23 AM EDT [facility] Eos Absolute 0.18 0.00 - 0.40 x10(3)/mc L 07/16/2024 2:23 AM EDT [facility] Basophil % 0.6 % 07/16/2024 2:23 AM EDT [facility] Baso Absolute 0.07 0.00 - 0.10 x10(3)/mc L 07/16/2024 2:23 AM EDT [facility] Immature Gran % 0.5 % 2:23 AM EDT [facility] Immature Gran Absolute 0.05(H) 0.00 - 0.04 x10(3)/mc L 07/16/2024 2:23 AM EDT [facility] Blood VENOUS BLOOD SPECIMEN / Unknown IP Care Team Draw / Unknown 07/16/2024 2:07 AM EDT 07/16/2024 2:14 AM EDT Thony Garcia MD HEMATOLOGY ORDERABLE S [facility] [place] [address] * (ABNORMAL) POC, GLUCOSE (07/16/2024 12:04 AM EDT) [facility] Signature Glucometer, POC 324(H) 65 - 199 mg/dL 07/16/2024 12:05 AM EDT [facility] Comment:Supplemental ranges: <140 mg/dL before meals <180 mg/dL all other times of the day. Blood CAPILLARY BLOOD / Unknown 07/16/2024 12:04 AM EDT 07/16/2024 12:05 AM EDT Thony Garcia MD POINT OF CARE TEST O GILDA Performing Organization Address [facility] Co de Phone Number [facility] [place] [address] * (ABNORMAL) POC, GLUCOSE (07/15/2024 8:36 PM EDT) Glucometer, POC 274(H) 65 - 199 mg/dL 07/15/2024 8:36 PM EDT [facility] Comment:Supplemental ranges: <140 mg/dL before meals <180 mg/dL all other times of the day. Blood CAPILLARY BLOOD / Unknown 07/15/2024 8:36 PM EDT 07/15/2024 8:36 PM EDT Thony Garcia MD POINT OF CARE TEST Stephanie VO Performing Organization Address [facility] Co de Phone Number [facility] [place] [address] * Heparin (unfractionated) Level (07/15/2024 8:21 PM [...] MD HEMATOLOGY ORDERABLE S Performing Organization Address [facility] Co de Phone Number [facility] [place] [address] * (ABNORMAL) POC, GLUCOSE (07/15/2024 4:41 PM EDT) Glucometer, POC 275(H) 65 - 199 mg/dL 07/15/2024 4:42 PM EDT [facility] Comment:Supplemental ranges: <140 mg/dL before meals <180 mg/dL all other times of the day. Blood CAPILLARY BLOOD / Unknown 07/15/2024 4:41 PM EDT 07/15/2024 4:42 PM EDT Thony Garcia MD POINT OF CARE TEST O RDERABLES Performing Organization Address [facility] Co de Phone Number [facility] [place] [address] * (ABNORMAL) Vancomycin, trough (07/15/2024 2:19 PM EDT) Vancomycin, Trough 9.7(L) 10.0 - 20.0 mg/L 07/15/2024 3:28 PM EDT [facility] Comment: Varies according to infection source. Blood VENOUS BLOOD SPECIMEN / Unknown IP Care Team Draw / Unknown 07/15/2024 2:19 PM EDT 07/15/2024 3:00 PM EDT Thony Garcia MD CHEMISTRY ORDERABLES Performing Organization Address [facility] Co de Phone Number [facility] [place] [address] * (ABNORMAL) POC, GLUCOSE (07/15/2024 1:16 PM EDT) Glucometer, POC 223(H) 65 - 199 mg/dL 07/15/2024 1:17 PM EDT [facility] Comment:Supplemental ranges: <140 mg/dL before meals <180 mg/dL all other times of the day. Blood CAPILLARY BLOOD / Unknown 07/15/2024 1:16 PM EDT 07/15/2024 1:18 PM EDT Thony Garcia MD POINT OF CARE TEST O GILDA Performing Organization Address [facility] Co de Phone Number [facility] [place] [address] * POC, GLUCOSE (07/15/2024 8:34 AM EDT) Glucometer, POC 133 65 - 199 mg/dL 07/15/2024 8:35 AM EDT [facility] Comment:Supplemental ranges: <140 mg/dL before meals <180 mg/dL all other times of the day. Blood CAPILLARY BLOOD / Unknown 07/15/2024 8:34 AM EDT 07/15/2024 8:35 AM EDT Thony Garcia MD POINT OF CARE TEST O GILDA Performing Organization Address [facility] de Phone Number [facility] [place] [address] * (ABNORMAL) POC, GLUCOSE (07/15/2024 4:44 AM EDT) Glucometer, POC 224(H) 65 - 199 mg/dL 07/15/2024 4:44 AM EDT [facility] Comment:Supplemental ranges: <140 mg/dL before meals <180 mg/dL all other times of the day. Blood CAPILLARY BLOOD / Unknown 07/15/2024 4:44 AM EDT 07/15/2024 4:44 AM EDT Thony Garcia MD POINT OF CARE TEST O GILDA Performing Organization Address [facility] Co de Phone Number [facility] [place] [address] * (ABNORMAL) POC, GLUCOSE (07/15/2024 2:48 AM EDT) Glucometer, POC 281(H) 65 - 199 mg/dL 07/15/2024 2:48 AM EDT [facility] Comment:Supplemental ranges: <140 mg/dL before meals <180 mg/dL all other times of the day. Blood CAPILLARY BLOOD / Unknown 07/15/2024 2:48 AM EDT 07/15/2024 2:48 AM EDT Thony Garcia MD POINT OF CARE TEST O RDERABLES [facility] [place] [address] * (ABNORMAL) Basic Metabolic Panel (07/15/2024 12:45 AM EDT) Glucose 309(H) 65 - 199 mg/dL 07/15/2024 1:28 AM EDT [facility] Comment:Glucose Concentratio n >=200 mg/dL plus symptoms is consistent with Diabetes Mellitus. Blood Urea Nitrogen 8(L) 10 - 20 mg/dL 07/15/2024 1:28 AM EDT [facility] Creatinine 0.80 0.80 - 1.50 mg/dL 07/15/2024 1:28 AM EDT [facility] Sodium 132(L) 135 - 145 mMol/L 07/15/2024 1:28 AM EDT [facility] Potassium 3.7 3.5 - 5.0 mMol/L 07/15/2024 1:28 AM EDT [facility] Chloride 99 98 - 107 mMol/L 07/15/2024 1:28 AM EDT [facility] Carbon Dioxide 20(L) 22 - 31 mMol/L 07/15/2024 1:28 AM EDT [facility] Anion Gap 13 5 - 15 mMol/L 07/15/2024 1:28 AM EDT [facility] Calcium 8.5 8.5 - 10.5 mg/dL 07/15/2024 1:28 AM EDT [facility] Est Glomerular Filtration Rate - Male 108 mL/min/1. 73 m?? 07/15/2024 1:28 AM EDT [facility] Comment: [...] MD CHEMISTRY ORDERABLES [facility] [place] [address] * (ABNORMAL) CBC (with Diff) (07/15/2024 12:45 AM EDT) White Blood Cell 11.70(H) 4.00 - 9.50 x10(3)/mc L 07/15/2024 1:05 AM EDT [facility] Red Blood Cell 4.13(L) 4.58 - 5.54 x10(6)/mc L 07/15/2024 1:05 AM EDT [facility] Hemoglobin 12.1(L) 13.7 - 16.5 g/dL 07/15/2024 1:05 AM EDT [facility] Hematocrit 35.7(L) 40.5 - 48.5 % 07/15/2024 [facility] Mean Cell Volume 86.4 82.9 - 93.1 fL 07/15/2024 1:[address] [facility] Mean Cell Hemoglobin 29.3 27.5 - 32.1 pg 07/15/2024 1:[address] [facility] Mean Cell Hemoglobin Concentration 33.9 32.0 - 35.7 g/dL 07/15/2024 1:[address] [facility] Platelet 322 145 - 357 x10(3)/mc L 07/15/2024 1:[address] [facility] Mean Platelet Volume 9.9 7.6 - 12.9 fL 07/15/2024 1:[address] [facility] RDW Standard Deviation 40.2 36.0 - 45.0 fL 07/15/2024 1:[address] [facility] RDW coefficient of variation 12.9 11.4 - 13.8 % 07/15/2024 1:[address] [facility] NRBC% auto 0.0 % 07/15/2024 1:[address] [facility] NRBC Absolute 0.00 0.00 - 0.00 x10(3)/mc L 07/15/2024 1:[address] [facility] Neutrophil % 74.9 % 07/15/2024 1:[address] [facility] Neutrophil Absolute (ANC) - Automated 8.75(H) 1.70 - 6.10 x10(3)/mc L 07/15/2024 1:[address] [facility] Lymph % 16.3 % 07/15/2024 1:[address] [facility] Lymph Absolute 1.91 0.90 - 3.20 x10(3)/mc L 07/15/2024 1:[address] [facility] Monocyte % 6.6 % 07/15/2024 1:[address] [facility] Monocyte Absolute 0.77 0.30 - 0.90 x10(3)/mc L 07/15/2024 1:05 AM EDT [facility] Eos % 1.5 % 07/15/2024 1:05 AM EDT [facility] Eos Absolute 0.18 0.00 - 0.40 x10(3)/mc L 07/15/2024 1:05 AM EDT [facility] Basophil % 0.3 % 07/15/2024 1:05 AM EDT [facility] Baso Absolute 0.04 0.00 - 0.10 x10(3)/mc L 07/15/2024 1:05 AM EDT [facility] Immature Gran % 0.4 % 1:05 AM EDT [facility] Immature Gran Absolute 0.05(H) 0.00 - 0.04 x10(3)/mc L 07/15/2024 1:05 AM EDT [facility] Blood VENOUS BLOOD SPECIMEN / Unknown IP Care Team Draw / Unknown 07/15/2024 12:45 AM EDT 07/15/2024 1:00 AM EDT Thony Garcia MD HEMATOLOGY ORDERABLE S Performing Organization Address City/[facility]/ZIP Co de Phone Number [facility] [place] [address] * (ABNORMAL) POC, GLUCOSE (07/15/2024 12:29 AM EDT) [facility] Signature Glucometer, POC 394(H) 65 - 199 mg/dL 07/15/2024 12:30 AM EDT [facility] Comment:Supplemental ranges: <140 mg/dL before meals <180 mg/dL all other times of the day. Blood CAPILLARY BLOOD / Unknown 07/15/2024 12:29 AM EDT 07/15/2024 12:30 AM EDT Thony Garcia MD POINT OF CARE TEST O RDERABLES [facility] [place] [address] * CT Angiogram Aortic Lower Extremity Runoff (07/14/2024 11:57 PM EDT) WORKSTATION ID [id number] RAD Anatomical Region Laterality Modality Abdomen Computed [...] who have questions please contact the health workforce investment act career manager that requested your imaging first. ? [...] 2.6 cm vessel length at and just [id number], similar to prior. Anterior tibial artery: No [...] the intravenous administration of contrast. 149 cc [id number]. Maximum intensity projection (MIP) were reformatted. 3-D [...] 2.6 cm vessel length at and just [id number], similar toprior. Anterior tibial artery: No stenosis. [...] patients who have questions please contactthe health workforce investment act career manager that requested your imaging first. Thony Garcia MD IMG CT ORDERABLES * XR Foot Min 3 views Left (Generic) (07/14/2024 9:11 PM EDT) [place] WORKSTATION ID [id number] RAD Anatomical Region Laterality Modality Foot Left [...] who have questions please contact the health workforce investment act career manager that requested your imaging first. ? [...] patients who have questions please contactthe health workforce investment act career manager that requested your imaging first. Arthur Patel DO IMG DX ORDERABLES * Lactate Whole Blood POC (07/14/2024 7:41 PM EDT) Pathologist [facility] Lactate, Whole Blood 1.1 0.5 - 2.2 mmol/L 07/14/2024 7:42 PM EDT [facility] Blood ARTERIAL BLOOD / Unknown 07/14/2024 7:41 PM EDT 07/14/2024 7:42 PM EDT Unknown POINT OF CARE TEST O RDERABLES [facility] [place] [address] * (ABNORMAL) Basic Metabolic Panel (07/14/2024 7:39 PM EDT) Glucose 341(H) 65 - 199 mg/dL 07/14/2024 8:[address] [facility] Comment:Glucose Concentratio n >=200 mg/dL plus symptoms is consistent with Diabetes Mellitus. Blood Urea Nitrogen 6(L) 10 - 20 mg/dL 07/14/2024 8:[address] [facility] Creatinine 0.53(L) 0.80 - 1.50 mg/dL 07/14/2024 8:[address] [facility] Sodium 137 135 - 145 mMol/L 07/14/2024 8:[address] [facility] Potassium 3.7 3.5 - 5.0 mMol/L 07/14/2024 8:[address] [facility] Chloride 101 98 - 107 mMol/L 07/14/2024 8:[address] [facility] Carbon Dioxide 23 22 - 31 mMol/L 07/14/2024 8:[address] [facility] Anion Gap 13 5 - 15 mMol/L 07/14/2024 8:[address] [facility] Calcium 8.6 8.5 - 10.5 mg/dL 07/14/2024 8:[address] [facility] Est Glomerular Filtration Rate - Male 122 mL/min/1. 73 m?? 07/14/2024 8:[address] [facility] Comment: This patient's estimated GFR [...] PM EDT Arthur Patel DO CHEMISTRY ORDERABLES [facility] [place] [address] * (ABNORMAL) CBC (with Diff) (07/14/2024 7:39 [...] - 32.1 pg 07/14/2024 7:50 PM EDT [facility] Mean Cell Hemoglobin Concentration 33.9 32.0 - 35.7 g/dL 07/14/2024 7:50 PM EDT [facility] Platelet 313 145 - 357 x10(3)/mc L 07/14/2024 7:50 PM EDT [facility] Mean Platelet Volume 9.5 7.6 - 12.9 fL 07/14/2024 7:50 PM EDT [facility] RDW Standard Deviation 39.5 36.0 - 45.0 fL 07/14/2024 7:50 PM EDT [facility] RDW coefficient of variation 12.6 11.4 - 13.8 % 07/14/2024 7:50 PM EDT [facility] NRBC% auto 0.0 % 07/14/2024 7:50 PM EDT [facility] NRBC Absolute 0.00 0.00 - 0.00 x10(3)/mc L 07/14/2024 7:[facility] Neutrophil % 67.3 % 07/14/2024 7:[address] [facility] Neutrophil Absolute (ANC) - Automated 5.85 1.70 - 6.10 x10(3)/mc L 07/14/2024 7:50 PM EDT [facility] Lymph % 23.4 % 07/14/2024 7:[facility] Lymph Absolute 2.03 0.90 - 3.20 x10(3)/mc L 07/14/2024 7:50 [facility] Monocyte % 6.8 % 07/14/2024 7:[address] [facility] Monocyte Absolute 0.59 0.30 - 0.90 x10(3)/mc L 07/14/2024 7:50 PM EDT [facility] Eos % 1.7 % 07/14/2024 7:50 [facility] Eos Absolute 0.15 0.00 - 0.40 x10(3)/mc L 07/14/2024 7:50 [facility] Basophil % 0.3 % 07/14/2024 7:50 [facility] Baso Absolute 0.03 0.00 - 0.10 x10(3)/mc L 07/14/2024 7:50 [facility] Immature Gran % 0.5 % 7:50 [facility] Immature Gran Absolute 0.04 0.00 - 0.04 x10(3)/mc L 07/14/2024 7:[address] [facility] Blood VENOUS BLOOD SPECIMEN / Unknown Venipuncture / Unknown 07/14/2024 7:39 PM EDT 07/14/2024 7:46 PM EDT Arthur Patel HEMATOLOGY ORDERABLE S [facility] [place] [address] documented in this encounter Visit Diagnoses Diagnosis [...] dose, Starting on 07/15/24 at 1431, Until 07/21/24 [...] 50 mL Mini-Bag Plus 3.375 g, Intravenous, S[employer]IOR [employer] DEVELOPER TO O.R., 1 dose, On Wed07/14/24 [...] over 4 Hours, Warning Vesicant/Irritant Medication Per central office maintainer labeling, do not administer or Y-site with [...] Gavin Rudd, DAVID) 1613 (Given - Provider: Jaja Diallo RN) [...] Jonas, DAVID) 2019 (Given - Provider: Anabel Jonas, DAVID) insulin [...] Knowles, RN)0956 (Given - Provider: Nava Huggins, RN - Comment: [phone] (Given - Provider: Nava Huggins, RN)1600 (Due) iodixanoL (Visipaque) (320 mg/mL) injection solution 1-400 mL (COMPLETED) 1-400 mL, Intra-arterial, ONCE, 1 dose, On Angelita 24 at 1015, For intra-procedural use by proceduralist., [...] LPN) 1321 (Given - Provider: Lauren Zavala, RN) 0950 (Given - Provider: Nava Huggins, RN) pantoprazole EC (Protonix) tablet 40 mg [...] over 4 Hours, Warning Vesicant/Irritant Medication Per central office maintainer labeling, do not administer or Y-site with [...] Jonas, DAVID)2341 (Stopped - Provider: Anabel Jonas, RN) 0412 (New Bag - Provider: Anabel Jonas, DAVID)0812 (Stopped - Provider: Lauren Zavala, DAVID)1302 (New Bag - Provider: Lauren Zavala, DAVID)1702 (Stopped - Provider: Lauren Zavala, RN)2037 (New Bag - Provider: Anabel Jonas, RN) 0037 (Stopped - Provider: Carlos Enrique Knowles RN)0409 (New Bag - Provider: Carlos Enrique Knowles RN)0809 (Stopped - Provider: Nava Huggins, DAVID)1307 (New Bag - Provider: Nava Huggins, DAVID)1707 (Stopped - Provider: Nava Huggins, DAVID) protriptyline (Vivactil) tablet 10 mg 10 mg, Oral, 3 TIMES DAILY, First dose on 07/17/24 at 1200, Until Discontinued, Routine 0857 (JAN [...] RN) 1109 (Given - Provider: Nava Huggins, DAVID - Comment: missing medication rx notified)1522 (Given - Provider: Nava Huggins, DAVID) rivaroxaban (Xarelto) tablet 20 mg 20 mg, Oral, DAILY, First dose on Wed07/21/24 at 1730, Until Discontinued, Routine, rivaroxaban (Xarelto) Indication: Peripheral Artery Disease, Stable 1759 (Given - Provider: Nava Huggins, DAVID) senna-docusate [...] Patient/family refused) 1321 (Given - Provider: Lauren Zavala, RN)2027 (Given - Provider: Anabel Jonas RN) [...] (New Bag - Provider: Lindsey Haddad RN)0857 ([facility] Hold - Provider: Admin Adt - Reason: Transfer to a Procedural area)1149 (Hold - Provider: Cynthia Solorzano RN - Reason: See comment - Comment: not infusing on assessment, order to d/c.)1149 ([facility] Unhold - Provider: Cristiano Jones MD) heparin (porcine) 50 units/mL in dextrose 5% 500 mL infusion (CANCELED) 500 Units/hr (10 mL/hr), Intravenous, CONTINUOUS, Starting on Angelita 07/20/24 at 1630, Until Wed07/21/24 at 1613, Routine 1720 (New Bag - Provider: Lauren Zavala, RN) 1759 (Stopped - Provider: Nava Huggins [...] Admin Adt)2305 (Given - Provider: Anabel Jonas, RN) 0409 (Given - Provider: Carlos Enrique [...] - Reason: Transfer to a Procedural area)1206 ([facility] Unhold - Provider: Admin Adt) bisacodyl EC [...] - Reason: Transfer to a Procedural area)1206 ([facility] Unhold - Provider: Admin Adt) BUPivacaine (pf) [...] Hailey Nick, DAVID)1002 (Given - Provider: Hailey Nick RN) glucagon (Glucagen) (1 mg/mL) injection solution [...] any scheduled bowel medications ordered, Routine 0857 ([facility] Hold - Provider: Admin [...] scheduled bowel medications ordered. , Routine 0857 ([facility] Hold - Provider: Admin Adt - Reason: Transfer to a Procedural area)1206 ([facility] Unhold - Provider: Admin Adt) lidocaine (Xylocaine) 1% (10 mg/mL) injection 3 mg 3 mg (0.3 mL), Subcutaneous, ONCE PRN, 1 dose, Starting on Wed07/14/24 at 2208, Until Wed07/21/24 at 2209, for discomfort with PIV insertion, Routine 0857 ([facility] Hold - Provider: Admin Adt - Reason: Transfer to a Procedural area)1206 ([facility] Unhold - Provider: Admin Adt) magnesium citrate [...] any scheduled bowel medications ordered., Routine 0857 ([facility] Hold - Provider: Admin Adt - Reason: Transfer to a Procedural area)1206 ([facility] Unhold - Provider: Admin Adt) melatonin tablet 3 mg 3 mg, Oral, NIGHTLY PRN, Starting on Wed07/14/24 at 2208, Until Wed07/21/24 at 2209, Sleep, Sleep, Routine 0857 ([facility] Hold - Provider: Admin Adt - Reason: Transfer to a Procedural area)1206 ([facility] Unhold - Provider: Admin Adt) midazolam (pf) [...] one in 30 minutes if ineffective. 0857 ([facility] Hold - Provider: Admin Adt - Reason: Transfer to a Procedural area)1206 ([facility] Unhold - Provider: Admin Adt) ondansetron ODT [...] 45 minutes if ineffective. , Routine 0857 ([facility] Hold - Provider: Admin Adt - Reason: Transfer to a Procedural area)1206 ([facility] Unhold - Provider: Admin Adt) oxyCODONE (Roxicodone) [...] scheduled bowel medications ordered. , Routine 0857 ([facility] Hold - Provider: Admin Adt - Reason: Transfer to a Procedural area)1206 ([facility] Unhold - Provider: Admin Adt) prochlorperazine (Compazine) (5 mg/mL) injection 10 mg(Linked Group 6) 10 mg, Intravenous, EVERY 6 HOURS PRN, Starting on Wed07/14/24 at 2208, Until Wed07/21/24 at 2209, Nausea, Nausea/Vomiting, If multiple antiemetics are ordered, use ondansetron first. If ondansetron ineffective use prochlorperazine. Only give IV if unable to take PO, Routine 0857 ([facility] Hold - Provider: Admin Adt - Reason: Transfer to a Procedural area)1206 ([facility] Unhold - Provider: Admin Adt) prochlorperazine (Compazine) tablet 10 mg(Linked Group 6) 10 mg, Oral, EVERY 6 HOURS PRN, Starting on Wed07/14/24 at 2208, Until Wed07/21/24 at 2209, Nausea, Nausea/Vomiting, If multiple antiemetics are ordered, use ondansetron first. If ondansetron ineffective use prochlorperazine. PO Preferred. If patient unable to take PO, may give IV if ordered., Routine 0857 ([facility] Hold - Provider: Admin Adt - Reason: Transfer to a Procedural area)1206 ([facility] Unhold - Provider: Admin Adt) sodium chloride 0.9 % (flush) (BD PosiFlush Normal Saline 0.9) flush 5-20 mL 5-20 mL, Intravenous, EVERY 1 MIN PRN, Starting on Wed07/14/24 at 2208, Until Wed07/21/24 at 2209, flush, Flush pertains to all indwelling lines. Flush per protocol found in the job aid using the link provided on this medication record., Routine 0857 ([facility] Hold - Provider: Admin Adt - Reason: Transfer to a Procedural area)1206 ([facility] Unhold - Provider: Admin Adt) Linked Groups [...] Routine documented in this encounter Care Teams Editor House Organ Relationship Specialty Start Date End Date None None PCP - General 05/27/24 09/17/24 documented as of this encounter
--- OUTSIDE RECORDS SUMMARY | 2024-10-31 15:43 | XMS_ITS | Encounter Summary ---
[place] [address] Care Team Providers Care Tumbler Operator Name Role Phone None Primary Care Provider Unavailabl e Encounter Details Date Type Department Care Team (Late st Contact Info) Description 07/18/2024 5:26 PM EDT Anesthesia [place] [address] Jules Rivera MD [facility] [place] [address] Jonnathan Scott, [facility] [place] [address] Anesthesia Record Procedure Summary Procedure Name Responsible [...] other (see comments) (vertical yung drain site); D Hanis drain site 10/06/24 0900 by Liana Mccormack RN PICC Line 10/23/24; 1325; Sing le [...] drink = 0.6 oz pur e alcohol) [facility] Utilities Answer Date Recorded In the past 12 months has [employer], [employer], oil, or water [employer] threatened to shut off services in your [...] VEIN GRAFT performed by INNA TOVAR at [facility] ??? PRO ENDOSCOPY W/VIDEO-ASST VEIN HARVEST, CABG 01/04/2012 ENDOSCOPIC HARVEST VEIN(S) FOR CABG performed by INNA TOVAR at [facility] Social History Tobacco Use ??? [...] PM EST Office [place] [phone] Isabela Hayward, SURFACE WATER TECHNICIAN [facility] [place] [address] 11/10/2024 10:00 AM EST Office [place] [phone] Dai Whitman APRN 11/21/2024 2:15 PM EST Office [place] [phone] Dayanara Grover MD [facility] [place] [address] documented as of this encounter Visit Diagnoses Not on filedocumented in this encounter Care Teams Tumbler Operator Relationship Specialty Start Date End Date None None PCP - General 05/27/24 09/17/24 documented as of this encounter
--- OUTSIDE RECORDS SUMMARY | 2024-10-31 15:43 | XMS_ITS | Encounter Summary ---
Author Organization [place] [id number] Care Team Providers Care Bicycle Messenger Name Role Phone None Primary Care Provider Unavailabl e Reason for Visit * Reason Comments Hospital Transfer * Auth/Cert (Routine) Specialty Diagnoses / Procedures Referred By William t Referred To Contact Diagnoses Peripheral artery disease Ischemic foot Procedures EMERGENCY IPI Thony Garcia MD [facility] [place] [address] [facility] Referral ID Status Reason Start Date Expiration Date Visits Re quested Visits Authorized [id number] 1 1 Encounter Details Date Type Department Care Team (Late st Contact Info) Description 07/19/2024 8:45 AM EDT - 07/19/2024 10:21 AM EDT [place] [phone] Thony Garcia MD [facility] [place] [address] AMPUTATION TOE, METATARSO-PHALANGEAL JOINT (WRVU 3.51) Social History Tobacco Use Types Packs/Day Years Used Date Smoking Tobacco: Every Day Cigarettes 1 25 Started: 12/28/1986; Last attempted to quit: 12/28/2011 Alcohol Use Standard Drinks/Week Comments No 0 (1 standard drink = 0.6 oz pur e alcohol) [facility] Utilities Answer Date Recorded In [...] in a senior care (including now)? No 07/17/2024 DH IPV Inpatient [...] narcolepsy/cataplexy, who initially presented to [facility] ED with left foot wounds/cellulitis and concern for limb ischemia [facility]. Recent admit 05/2024 for short segment left popliteal occlusion; he was treated with a heparin drip and antibiotics for cellulitis with improvement. He was discharged on Xarelto 2.5mg BID, aspirin and short course of Augmentin with instructions to be seen in 1 mo [facility], which he did not show for the [...] of an occluded SVG-RPDA graft with a HORTICULTURE SUPERVISOR of his right coronary artery. He [...] 149 Dorsalis Pedis (Ankle) Artery 83 0.55 [place]-Biphasic Posterior Tibial (Ankle) Artery 87 0.57 Monophasic [...] Appointments and Orders Future Orders Complete By [facility] [employer] [EQ161 Custom] As directed Process Instructions: Scheduling Instructions: Comments: Geovanna Dixon Jr. [address] [facility] [address] [phone] (home) Telephone Information: Diagnosis: deconditioning with Unsteady gait Significant weakness, ataxia or gait abnormality Patient's: Hgt: Ht Readings from Last 1 Encounters: 07/14/24 : 177.8 cm (5' 10) Wgt: Wt Readings from Last 1 Encounters: 07/14/24 : 99.8 kg (220 lb) VENDOR: [employer] Ordering: Front wheel walker Deliver to [facility] room #: 448A Questions: Device Needed: [...] Blood thinner have been sent to your [facility] in [facility]. Anticoagulation: xarelto 20 mg daily Call [...] For any problems or questions please call [phone] For issues on weeknights after 5pm and weekends please call [phone] and ask for the Vascular Fellow soil conservation teacher. Geovanna-for your diabetes! Most important thing is [...] Tierney APRN - 07/20/2024 10:13 AM EDT [facility] Interventional Radiology Post Angiography Instructions Procedure: [...] and ask for the vice president of finance soil conservation teacher. OR Vascular Department at until 4:45pm. After 4:45pm call and ask for the Vascular resident soil conservation teacher. 10. If you are a diabetic and [...] Blood thinner have been sent to your [facility] in [facility]. Anticoagulation: xarelto 20 mg daily Call [...] For any problems or questions please call [phone] For issues on weeknights after 5pm and weekends please call [phone] and ask for the Vascular Fellow soil conservation teacher. Geovanna-for your diabetes! Most important thing is [...] HCP Completion of AVS * Thuy Jiang, AIRCRAFT ENGINE MECHANIC - 07/21/2024 12:26 PM EDT Images from [...] Carb Controlled 60/60/75g Monitoring: BG Q4 Discharge Planning/correction diabetes care: Medications - Outpatient treatment regimen [...] 3.51) performed by Thony Garcia MD at [facility] MAIN OR PRO CABG, ARTERY-VEIN, SINGLE 01/04/2012 @CABG, VENOUS & ARTERIAL GRAFT;SINGLE VEIN GRAFT performed by INNA TOVAR at [facility] MAIN OR PRO ENDOSCOPY W/VIDEO-ASST VEIN HARVEST, CABG 01/04/2012 ENDOSCOPIC HARVEST VEIN(S) FOR CABG performed by INNA TOVAR at [facility] MAIN OR Active Non-Hospital Problems Diagnosis [...] Anne PT, Doctor of Physical Therapy Pager: [phone] Physical Therapy Inpatient Rehabilitation Department * Carlos [...] Anne PT, Doctor of Physical Therapy Pager: [phone] Physical Therapy Inpatient Rehabilitation Department * Hailey Nick RN - 07/20/2024 10:00 AM EDT [facility] NURSING DATABASE Name: Geovanna Dixon JrFlorencio Date of : 1975 AGE: 49 y.o. Address: [address] [place] [address] Phone: [phone] (home) Mobile: Telephone Information: Referring Provider: Herminio [...] Carb Controlled 60/60/75g Monitoring: BG Q4 Discharge Planning/correction diabetes care: Medications - Outpatient treatment regimen [...] tablet 50 mg 50 mg Oral Daily Crisitano Jones MD 50 mg at 07/19/24 1304 [...] Q6H PRN Cristiano Jones MD No current [facility]-ordered outpatient medications on file. Allergies [...] ASA II Rubio Grimaldo MD Vascular Surgery [facility] Vascular Surgery Floor Pager: [phone] Vascular Surgery Consult Pager: [phone] * Rubio Grimaldo MD - 07/20/2024 8:00 [...] Procedure Component Value - Date/Time Anaerobic Culture [[id number]] Collected: 07/19/24950 Lab Status: Preliminary result Specimen: Bone from Toe(s), Left Foot Updated: 07/20/24 1420 Anaerobic Culture No anaerobic organisms isolated to date Fungus culture [[id number]] Collected: 07/19/24950 Lab Status: Preliminary result Specimen: Bone from Toe(s), Left Foot Updated: 07/20/24 0931 Fungus Culture No fungus isolated to date Bone Culture [[id number]] Collected: 07/19/24950 Lab Status: Preliminary result Specimen: Bone from Toe(s), Left Foot Updated: 07/20/24 0650 Bone Culture No growth to date Gram Stain No neutrophils seen No microorganisms seen MRSA PCR Screen [[id number]] (Normal) Collected: 07/16/24 1407 Lab Status: Final result Specimen: Swab from Nares Updated: 07/17/24 1804 MRSA PCR Not Detected Narrative: This test was performed using the Xpert MRSA NxG test kit and is run on the [employer] GeneXpert Dx System. This test is cleared by the U.S. Food and Drug Administration for clinical use and its performance characteristics have been verified by the [facility] [employer] [facility] [employer] [facility] at [facility]. This test was performed using the Xpert MRSA NxG test kit and is run on the [employer] GeneXpert Dx System. This test is cleared by the U.S. Food and Drug Administration for clinical use and its performance characteristics have been verified by the [facility] [employer] [facility] [employer] [facility] at [facility]. New Studies: ABIs 07/17/24: Findings: Right Pressure (mm Hg) ELEN Waveform TBI Brachial Artery 152 Dorsalis Pedis (Ankle) Artery 167 1.10 Triphasic Posterior Tibial (Ankle) Artery 168 1.11 Triphasic Great Toe 141 0.93 Left Pressure (mm Hg) LEEN Waveform TBI Brachial Artery 149 Dorsalis Pedis (Ankle) Artery 83 0.55 Presidio-Biphasic Posterior Tibial (Ankle) Artery 87 0.57 Monophasic [...] who have questions please contact the health child day care teacher that requested your imaging first. Angiogram Aortic [...] 2.6 cm vessel length at and just vhuny-xun-ysjz, similar to prior. Anterior tibial artery: No [...] who have questions please contact the health child day care teacher that requested your imaging first. Assessment & [...] status: Full Rubio Grimaldo MD 07/20/2024 Pager: [phone] * Fallon Oliva MD - 07/19/2024 3:21 [...] as appropriate. Thanks. Oli Call, ELDON Beeper# [phone] * María Carranza APRN - 07/19/2024 9:54 [...] Component Value - Date/Time MRSA PCR Screen [[id number]] (Normal) Collected: 07/16/24 1407 Lab Status: Final result Specimen: Swab from Nares Updated: 07/17/241803 MRSA PCR Not Detected Narrative: This test was performed using the Xpert MRSA NxG test kit and is run on the [employer] GeneXpert Dx System. This test is cleared by the U.S. Food and Drug Administration for clinical use and its performance characteristics have been verified by the [facility] [employer] [facility] [employer] [facility] at [facility]. This test was performed using the Xpert MRSA NxG test kit and is run on the [employer] GeneXpert Dx System. This test is cleared by the U.S. Food and Drug Administration for clinical use and its performance characteristics have been verified by the [facility] [employer] [facility] [employer] [facility] at [facility]. New Studies: ABIs 07/17/24: Findings: Right Pressure (mm Hg) ELEN Waveform TBI Brachial Artery 152 Dorsalis Pedis (Ankle) Artery 167 1.10 Triphasic Posterior Tibial (Ankle) Artery 168 1.11 Triphasic Great Toe 141 0.93 Left Pressure (mm Hg) EELN Waveform TBI Brachial Artery 149 Dorsalis Pedis (Ankle) Artery 83 0.55 [place]idio-Biphasic Posterior Tibial (Ankle) Artery 87 0.57 Monophasic [...] who have questions please contact the health child day care teacher that requested your imaging first. Angiogram Aortic [...] 2.6 cm vessel length at and just pzyqt-hyv-dina, similar to prior. Anterior tibial artery: No [...] who have questions please contact the health child day care teacher that requested your imaging first. Assessment & [...] status: Full María Carranza APRN 07/19/2024 Pager: [phone] * Oli Call, PT - 07/18/2024 12:53 [...] 13 ; functional mobility OLI CALL, PT Pager:[phone] Physical Therapy Inpatient Rehabilitation Department * Fallon [...] 149 Dorsalis Pedis (Ankle) Artery 83 0.55 [place]-Biphasic Posterior Tibial (Ankle) Artery 87 0.57 Monophasic [...] who have questions please contact the health child day care teacher that requested your imaging first. Angiogram Aortic [...] 2.6 cm vessel length at and just ebiax-tzo-dgnv, similar to prior. Anterior tibial artery: No [...] who have questions please contact the health child day care teacher that requested your imaging first. Assessment & [...] 07/18/2024 Vascular Surgery [phone] * Lakeisha Berry, AIRCRAFT ENGINE MECHANIC - 07/18/2024 10:00 AM EDT Glucose Management Team Inpatient Progress Note HPI Geovanna Dixon Jr. is a 49 y.o. male from [place], [place], with PMH significant for T2DM IDDM [...] provide a review of long term care social worker diabetes care. Original consult completed: 07/15 by [...] Carb Controlled 60/60/75g Monitoring: BG Q4 Discharge Planning/correction diabetes care: Medications - Outpatient treatment regimen [...] the consulting service. Lakeisha Berry APRN, DNP, -[facility] Inpatient Diabetes Management Team Team pager #[phone] (DRAFT) Diabetes Discharge Instructions & Recommendations Check [...] VEIN GRAFT performed by INNA TOVAR at [facility] MAIN OR PRO ENDOSCOPY W/VIDEO-ASST VEIN HARVEST, CABG 01/04/2012 ENDOSCOPIC HARVEST VEIN(S) FOR CABG performed by INNA TOVAR at [facility] MAIN OR Social History: Home set-up: [...] Billing Code: evaluation OLI CALL, PT Pager: [phone] Physical Therapy Inpatient Rehabilitation Department * Lakeisha Berry, AIRCRAFT ENGINE MECHANIC - 07/17/2024 2:00 PM EDT Glucose Management Team Inpatient Progress Note HPI Geovanna Dixon Jr. is a 49 y.o. male from [place], [place], with PMH significant for T2DM IDDM [...] management and to provide a review of halfway diabetes care. Original consult completed: 07/15 by [...] Carb Controlled 60/60/75g Monitoring: BG Q4 Discharge Planning/correction diabetes care: Medications - Outpatient treatment regimen [...] the consulting service. Lakeisha Berry APRN, DNP, -[facility] Inpatient Diabetes Management Team Team pager #[phone] * Hermila White APRN - 07/17/2024 7:45 [...] TID insulin lispro 1-6 Units Subcutaneous Q4H CRITICAL [...] who have questions please contact the health child day care teacher that requested your imaging first. Angiogram Aortic [...] 2.6 cm vessel length at and just jgrrd-fkm-ncpq, similar to prior. Anterior tibial artery: No [...] who have questions please contact the health child day care teacher that requested your imaging first. Assessment & Plan: Geovanna Dxion Jr. is a 49 y.o. male with [...] (patient unsure whether he was taking this FINAL CANOE INSPECTOR) - Glargine 50 units nightly; meal associated lispro ICR 1:6g; moderate correction scale q4hrs - Diabetes management team consult, appreciate recommendations - Home meds: Losartan, metoprolol, protriptyline, PPI, venlafaxine - Full code Hermila White APRN 07/17/2024 Pager: [phone] * Dai Carter RN - 07/17/2024 2:43 [...] who have questions please contact the health child day care teacher that requested your imaging first. Angiogram Aortic [...] 2.6 cm vessel length at and just efgjb-xod-opff, similar to prior. Anterior tibial artery: No [...] who have questions please contact the health child day care teacher that requested your imaging first. Assessment & [...] (patient unsure whether he was taking this FINAL CANOE INSPECTOR) - Glargine 45 units nightly; meal associated lispro ICR 1:6g; moderate correction scale q4hrs - Diabetes management team consult, appreciate recommendations - Home meds: Losartan, metoprolol, protriptyline, PPI, venlafaxine - Full code Hermila White APRN 07/16/2024 Pager: [phone] * Dayanara Grover MD - 07/16/2024 8:52 [...] management and to provide a review of halfway diabetes care. Objective Temp: [36.8 ??C (98.2 [...] he will need outpatient follow up at [facility] endocrine clinic. He lives in [facility], but notes he has a truck [...] primary team (vascular surgery). Dayanara Grover PGY-5 [facility] Endocrinology Associated attestation - [...] or shortness of breath. - Last BM FINAL CANOE INSPECTOR Objective: Temp: [36.4 ??C (97.5 ??F)-36.7 ??C [...] who have questions please contact the health child day care teacher that requested your imaging first. Angiogram Aortic [...] 2.6 cm vessel length at and just xfadg-ifl-rjkg, similar to prior. Anterior tibial artery: No [...] who have questions please contact the health child day care teacher that requested your imaging first. Assessment & [...] (patient unsure whether he was taking this FINAL CANOE INSPECTOR) - Glargine 28 units nightly; meal associated lispro ICR 1:8g; moderate correction scale to [id number] - Diabetes management team consult - Home meds: Losartan, metoprolol, protriptyline, PPI, venlafaxine - Full code Hermila White APRN 07/15/2024 Pager: [phone] documented in this encounter H&P Notes * Dejah Marshall MD - 07/14/2024 10:16 PM EDT Images from the original note were not included. Vascular Surgery H&P Note Patient Name: Geovanna Dixon Jr. MR#: [id number] : 1975 Admission Date: 07/14/2024 History of [...] VEIN GRAFT performed by INNA TOVAR at [facility] MAIN OR PRO ENDOSCOPY W/VIDEO-ASST VEIN HARVEST, CABG 01/04/2012 ENDOSCOPIC HARVEST VEIN(S) FOR CABG performed by INNA TOVAR at [facility] MAIN OR Home Medications: Current Outpatient [...] LACTATEVEN 1.1 No results for input(s): PHART, AJR9OYX, PO2ART, OCS8UFA in the last 72 hours. Studies: No [...] 07/14/2024 4:47 PM EDT Sending Facility: [facility] Reason for Transfer: Vascular consult Report: Hx ischemic ulcer and DM T2. Has trouble getting to appointments at [facility] due to long drive. Decreased cap refill L left with streaking and decreased pulses. Lactate 3.2. Glucose 630. Given 10u of regular insulin, 500ml NS, 2g Cefepime, 1.5 vanc. 20g L AC. Vital Signs: Pulse: 97 B/P: 138/94 Resp: RA SPO2: 97% O2 LPM: RA GCS: 15 BGL: Temp: 36.8c Transporting Service: [place] Time of Departure: 1650 ETA: 1800 documented [...] MEDICARE Payor: WELLCARE MANAGED MEDICARE / Plan: LVL6 MANAGED MEDICARE PPO / Product Type: *No Product type* / Secondary Insurance: N/A Prescription Coverage: Yes This plan was formulated with input from patient and team. All are in agreement with plan. IMM on shared list for RS to deliver. Phu Kennedy LODGING HOUSE KEEPER armored transport service manager [phone] * Plan of Care - Carlos Enrique [...] No Patient is insured through: Primary Insurance: LVL6 MANAGED MEDICARE Payor: WELLCARE MANAGED MEDICARE / Plan: LVL6 MANAGED MEDICARE PPO / Product Type: *No [...] Jones MD - 07/19/2024 10:11 AM EDT [facility] Operative Note Patient Name: Geovanna Dixon Jr. : [id number] MR#: [id number] Case Date: 07/19/2024 Surgeon: Surgeons and Role: [...] utilized * Consult Note - Lori Lane [facility] - 07/18/2024 10:46 AM EDT The pharmacist-managed [...] have. Alternately, during off-hours you may call [phone] to contact a pharmacist. * Plan of [...] [facility] Vascular Surgery serviceon 05/28 [...] VEIN GRAFT performed by INNA TOVAR at [facility] MAIN OR PRO ENDOSCOPY W/VIDEO-ASST VEIN HARVEST, CABG 01/04/2012 ENDOSCOPIC HARVEST VEIN(S) FOR CABG performed by INNA TOVAR at [facility] MAIN OR Active Non-Hospital Problems Diagnosis [...] only Total Minutes, Occupational Therapy: 23 (evaluation ([id number])) OT Evaluation Code Rationale: Diagnosis & Pertinent Co-Morbidities affecting Plan of Care: see PMHx Occupational Profile & Client History: Brief Expanded Extensive X Assessment of Occupational Performance: 1-3 performance deficits X 3-5 performance deficits 5 + performance deficits Clinical Decision Making: Low Moderate High X Clinical decision making of low complexity using standardized patient assessment instrument and measurable assessment of functional outcome. Pager: [phone] Camille Holloway OT 07/17/2024 Occupational Therapy Rehabilitation [...] receiving care in [place] must abide by [place] law. The hierarchy [...] (i) The agent with financial power of united states attorney or a conservator appointed in accordance [...] or living in a senior care (including now)?: No In the past 12 months has the [employer], oil, or water [employer] threatened to shut off services in your [...] DME: none Home Address confirmed as: [address], [place], [place] Social & Family Supports: All names [...] points: Addiction likely Other Pertinent/Service Specific Information: motor coach supervisor to see patient. Hx of cocaine use Health/Prescription Coverage: Primary nsurance: LVL6 MANAGED MEDICARE Payor: [employer] MEDICARE / Plan: WELLCARE MANAGED MEDICARE PPO / Product Type: *No Product type* / Secondary Insurance: N/A ONLY if patient has Medicare A&B - Does this patient have secondary insurance?: No ; Why not?: Managed Medicare Prescription Coverage: Yes Preferred Pharmacy: [facility] - [place], [place] - [address] [facility] [address] [facility] - [place], [place] - [address] [address] [place] Status: Patient is a : No Primary [...] dry andstable, no open areas, no drainage. [place] with povidone- iodine daily and leave open [...] or the wound care team on pager [phone] with skin and wound care concerns or questions. * Consult Note - Cynthia Carreon - 07/17/2024 11:00 AM EDT PT sleeping RC will return. * Consult Note - Angel Oliva MD - 07/17/2024 8:52 AM EDT Images from the original note were not included. [facility] Cardiovascular Medicine [place] [phone] CARDIOLOGY CONSULT NOTE Date of Consultation: 07/17/2024 [...] narcolepsy/cataplexy, who initially presented to [facility] ED with left foot wounds/cellulitis and concern for limb ischemia who was transferred to [facility] for vascular surgery assessment. [...] Surgical Unit Level 4 Wing D at [facility] ED to Hosp-Admission (Discharged) from 05/28/2024 in Surgical Unit Level 4 Wing D at [facility] Weight 99.8 kg (220 lb) 1 [...] narcolepsy/cataplexy, who initially presented to [facility] ED with left foot wounds/cellulitis and concern for limb ischemia [facility]. Recent admit 05/2024 for short segment left popliteal occlusion; he was treated with a heparin drip and antibiotics for cellulitis with improvement. He was discharged on Xarelto 2.5mg BID, aspirin and short course of Augmentin with instructions to be seen in 1 [facility], which he did not show for the [...] of an occluded SVG-RPDA graft with a HORTICULTURE SUPERVISOR of his right coronary artery. He [...] questions or concerns arise. Angel Oliva MD, [facility] Staff Hotel Valet Attendant * Plan of Care - Lauren [place] [...] management and to provide a review of halfway diabetes care. Diabetes History: Geovanna Dixon Jr. [...] he will need outpatient follow up at [facility] endocrine clinic. He lives in [facility], but notes he has a truck [...] primary team (vascular surgery). Dayanara Grover PGY-5 [facility] Endocrinology Associated attestation - [...] seen eye doctor in years, his triglycerides [id number] was very high, needs recheck and aggressive [...] PM EST Office [place] [phone] Isabela Hayward, AIRCRAFT ENGINE MECHANIC [facility] [place] [address] 11/10/2024 10:00 AM EST Office [place] [address] Dai Whitman APRN 11/21/2024 2:15 PM EST Office [place] [address] Dayanara Grover MD [facility] [place] [address] documented as of this encounter Procedures Procedure [...] 49 AM EDT Amputation Toe, Mt-P Jt ([id number]) 07/19/2024 8:57 AM EDT peripheral artery disease [...] * POC, GLUCOSE (07/21/2024 3:43 PM EDT) [facility] Glucometer, POC 111 65 - 199 mg/dL 07/21/2024 3:44 PM EDT [facility] Comment:Supplemental ranges: <140 mg/dL before meals <180 mg/dL all other times of the day. Blood CAPILLARY BLOOD / Unknown 07/21/2024 3:43 PM EDT 07/21/2024 3:44 PM EDT Thony Garcia MD POINT OF CARE TEST O GILDA Performing Organization Address [facility] Co de Phone Number [facility] [place] [address] * (ABNORMAL) POC, GLUCOSE (07/21/2024 12:18 PM [...] CARE TEST O GILDA Performing Organization Address [facility] Co de Phone Number [facility] [place] [address] * POC, GLUCOSE (07/21/2024 8:37 AM EDT) [...] CARE TEST O GILDA Performing Organization Address [facility] Co de Phone Number [facility] [place] [address] * (ABNORMAL) Basic Metabolic Panel (07/21/2024 5:55 [...] [facility] [place] [address] * (ABNORMAL) CBC (with Diff) (07/21/2024 5:55 AM EDT) White Blood Cell 10.11(H) 4.00 - 9.50 x10(3)/mc L 07/21/2024 6:17 AM EDT [facility] Red Blood Cell 4.52(L) 4.58 - 5.54 x10(6)/mc L 07/21/2024 6:17 AM EDT [facility] Hemoglobin 13.2(L) 13.7 - 16.5 g/dL 07/21/2024 6:17 AM EDT [facility] Hematocrit 39.7(L) 40.5 - 48.5 % 07/21/2024 6:17 AM EDT [facility] Mean Cell Volume 87.8 82.9 - 93.1 fL 07/21/2024 6:17 AM EDT [facility] Mean Cell Hemoglobin 29.2 27.5 - 32.1 pg 07/21/2024 6:17 AM EDT [facility] Mean Cell Hemoglobin Concentration 33.2 32.0 - 35.7 g/dL 07/21/2024 6:17 AM EDT [facility] Platelet 405(H) 145 - 357 x10(3)/mc L 07/21/2024 6:17 AM EDT [facility] Mean Platelet Volume 9.3 7.6 - 12.9 fL 07/21/2024 6:17 AM EDT [facility] RDW Standard Deviation 42.2 36.0 - 45.0 fL 07/21/2024 6:17 AM EDT [facility] RDW coefficient of variation 13.2 11.4 - 13.8 % 07/21/2024 6:17 AM EDT [facility] [facility] MD HEMATOLOGY ORDERABLE S Performing Organization Address City/[facility]/ZIP Co de Phone Number [facility] [place] [address] * Phosphorus (07/21/2024 5:55 AM EDT) Phosphorus 3.9 2.5 - 4.5 mg/dL 07/21/2024 6:45 AM EDT [facility] Blood VENOUS BLOOD SPECIMEN / Unknown IP Care Team Draw / Unknown 07/21/2024 5:55 AM EDT 07/21/2024 6:13 AM EDT Thony Garcia MD CHEMISTRY ORDERABLES Performing Organization Address [facility] Co de Phone Number [facility] [place] [address] * Magnesium (07/21/2024 5:55 AM EDT) Magnesium 0.82 0.69 - 1.07 mMol/L 07/21/2024 6:45 AM EDT [facility] Blood VENOUS BLOOD SPECIMEN / Unknown IP Care Team Draw / Unknown 07/21/2024 5:55 AM EDT 07/21/2024 6:13 AM EDT Thony Garcia MD CHEMISTRY ORDERABLES Performing Organization Address City/[facility] Co de Phone Number [facility] [place] [address] * POC, GLUCOSE (07/21/2024 3:57 AM EDT) [...] CARE TEST O RDTYESHA Performing Organization Address [facility] Co de Phone Number [facility] [place] [address] * POC, GLUCOSE (07/20/2024 11:54 PM EDT) [...] CARE TEST O GILDA Performing Organization Address [facility] Co de Phone Number [facility] [place] [address] * POC, GLUCOSE (07/20/2024 8:17 PM EDT) [...] CARE TEST O RDERAHERNANDEZ Performing Organization Address City/[facility] Co de Phone Number [facility] [place] [address] * (ABNORMAL) POC, GLUCOSE (07/20/2024 3:51 PM [...] CARE TEST O RDERABLES Performing Organization Address [facility] Co de Phone Number [facility] [place] [address] * POC, GLUCOSE (07/20/2024 10:55 AM EDT) [...] CARE TEST O RDERAHERNANDEZ Performing Organization Address [facility]/[place] de Phone Number [facility] [place] [address] * Vein Map Arm, Bilateral (07/20/2024 10:48 AM EDT) VB Text Report Department: Vascular Surgery Lab Patient: [id number] (ZACK GEOVANNA) CPT: 67403 Referring Physician: THONY GARCIA ?? Indications: Patient [...] Garcia MD VASCULAR ORDERABLES Performing Organization Address City/State/[facility] Co de Phone Number VASCUBASE * VS [...] the sedation RN. Anabel Finney MD, MPH [facility] Vascular Surgery ? Thony Garcia MD IMG IR ORDERABLES * POC, GLUCOSE (07/20/2024 8:12 AM EDT) [facility] Glucometer, POC 119 65 - 199 mg/dL 07/20/2024 8:12 AM EDT [facility] Comment:Supplemental ranges: <140 mg/dL before meals <180 mg/dL all other times of the day. Blood CAPILLARY BLOOD / Unknown 07/20/2024 8:12 AM EDT 07/20/2024 8:12 AM EDT Thony Garcia MD POINT OF CARE TEST O RDERABLES [facility] [place] [address] * (ABNORMAL) CBC (with Diff) (07/20/2024 3:42 AM EDT) [facility] White Blood Cell 16.61(H) 4.00 - 9.50 [...] Neutrophil % 74.2 % 07/20/2024 4:[address] [facility] [...] [facility] [place] [address] * (ABNORMAL) POC, GLUCOSE (07/20/2024 3:41 AM [...] [facility] [place] [address] * (ABNORMAL) Basic Metabolic Panel (07/20/2024 3:41 AM EDT) Glucose 209(H) 65 - 199 mg/dL 07/20/2024 5:00 AM T [facility] Comment:Glucose Concentratio n >=200 mg/dL plus symptoms is consistent with Diabetes Mellitus. Blood Urea Nitrogen 12 10 - 20 mg/dL 07/20/2024 5:[address] [facility] Creatinine 0.53(L) 0.80 - 1.50 mg/dL 07/20/2024 5:[address] [facility] Sodium 135 135 - 145 mMol/L 07/20/2024 5:[address] [facility] Potassium 4.2 3.5 - 5.0 [...] [facility] [place] [address] * Phosphorus (07/20/2024 3:41 AM EDT) Phosphorus 3.4 2.5 - 4.5 mg/dL 07/20/2024 4:40 AM EDT [facility] Blood VENOUS BLOOD SPECIMEN / Unknown IP Care Team Draw / Unknown 07/20/2024 3:41 AM EDT 07/20/2024 4:09 AM EDT Thony Garcia MD CHEMISTRY ORDERABLES [facility] [place] [address] * Magnesium (07/20/2024 3:41 AM EDT) Magnesium 0.90 0.69 - 1.07 mMol/L 07/20/2024 4:40 AM EDT [facility] Blood VENOUS BLOOD SPECIMEN / Unknown IP Care Team Draw / Unknown 07/20/2024 3:41 AM EDT 07/20/2024 4:09 AM EDT Thony Garcia MD CHEMISTRY ORDERABLES Performing Organization Address [facility]/ZIP Co de Phone Number [facility] [place] [address] * (ABNORMAL) POC, GLUCOSE (07/20/2024 12:56 AM [...] CARE TEST O RDERABLES Performing Organization Address [facility]/ZIP Co de Phone Number [facility] [place] [address] * (ABNORMAL) POC, GLUCOSE (07/19/2024 11:04 PM EDT) Glucometer, POC 296(H) 65 - 199 mg/dL 07/19/2024 11:05 PM EDT [facility] Comment:Supplemental ranges: <140 mg/dL before meals <180 mg/dL all other times of the day. Blood CAPILLARY BLOOD / Unknown 07/19/2024 11:04 PM EDT 07/19/2024 11:05 PM EDT Thony Garcia MD POINT OF CARE TEST O RDTYESHA [facility] [place] [address] * (ABNORMAL) POC, GLUCOSE (07/19/2024 7:38 PM EDT) Glucometer, POC 251(H) 65 - 199 mg/dL 07/19/2024 7:39 PM EDT [facility] Comment:Supplemental ranges: <140 mg/dL before meals <180 mg/dL all other times of the day. Blood CAPILLARY BLOOD / Unknown 07/19/2024 7:38 PM EDT 07/19/2024 7:39 PM EDT Thony Gracia MD POINT OF CARE TEST O GILDA [facility] [place] [address] * POC, GLUCOSE (07/19/2024 4:48 PM EDT) [...] CARE TEST O GILDA Performing Organization Address [facility] Co de Phone Number [facility] [place] [address] * POC, GLUCOSE (07/19/2024 12:21 PM EDT) [...] [facility] [place] [address] * POC, GLUCOSE (07/19/2024 11:24 AM EDT) [...] CARE TEST O RDERABLES Performing Organization Address [facility]/ZIP Co de Phone Number [facility] [place] [address] * Anaerobic Culture (07/19/2024 9:51 AM EDT) Anaerobic Culture No anaerobic organisms isolated 07/23/2024 3:24 PM EDT [facility] Bone STRUCTURE OF TOE OF LEFT FOOT / Unknown 07/19/2024 9:51 AM EDT Comment:PERIPHERAL ARTERY DI SEASE Thony Garcia MD MICROBIOLOGY - GENER AL ORDERABLES Performing Organization Address City/[facility]/ZIP Co de Phone Number [facility] [place] [address] * Bone Culture (07/19/2024 9:51 AM EDT) [...] - GENER AL ORDERABLES Performing Organization Address [facility] Co de Phone Number [facility] [place] [address] * AFB culture (07/19/2024 9:51 AM EDT) Acid Fast Bacilli Culture No acid fast bacilli isolated at 8 weeks. 09/13/2024 11:02 AM EST [facility] Bone STRUCTURE OF TOE OF LEFT FOOT / Unknown 07/19/2024 9:51 AM EDT 07/19/2024 10:08 AM EDT Comment:PERIPHERAL ARTERY DI SEASE Thony Garcia MD MICROBIOLOGY - GENER AL ORDERABLES Performing Organization Address [facility] Co de Phone Number [facility] [place] [address] * Fungus culture (07/19/2024 9:51 AM EDT) Fungus Culture No fungus isolated 08/22/2024 9:08 AM EDT [facility] Bone STRUCTURE OF TOE OF LEFT FOOT / Unknown 07/19/2024 9:51 AM EDT 07/19/2024 10:08 AM EDT Comment:PERIPHERAL ARTERY DI SEASE Thony Garcia MD MICROBIOLOGY - GENER AL ORDERABLES Performing Organization Address [facility] Co de Phone Number [facility] [place] [address] * Surgical Pathology (07/19/2024 9:49 AM EDT) Case Report Surgical Pathology Report ? Case: [id number] ? Authorizing Provider: ??Thony Garcia MD ?Collected: ? 07/19/2024 0949 ? Ordering Location: ? Main Operating Room [facility] ?? Received: ?07/19/2024 1009 ? [facility] ? [facility] ? Pathologist: ? Benjamin Shen MD ? Specimen: ?Toe(s), Left Foot, LEFT 2ND TOE (PERM) ? 07/26/2024 1:24 PM EDT [facility] Final Diagnosis A - Left second toe; amputated through the proximal phalanx: - Gangrenous necrosis; amputation margin appears uninvolved. - Largely detached nail. 07/26/2024 1:24 PM EDT [facility] Clinical Information PROVIDED: PERIPHERAL ARTERY DISEASE. 07/26/2024 1:24 PM EDT [facility] Gross Description A. Toe(s), Left Foot, [...] Sections/Process ing: Blocks submitted for decalcification: A1-A2. [employer] sections in 2 cassettes as follows: A1-A2: Complete longitudinal section of digit cmk 07/26/2024 1:24 PM EDT [facility] Result Note Routine 07/26/2024 1:24 PM EDT [facility] Tissue STRUCTURE OF TOE OF LEFT FOOT / Unknown 07/19/2024 9:49 AM EDT 07/19/2024 10:09 AM EDT Comment:PERIPHERAL ARTERY DI SEASE Thony Garcia MD PATHOLOGY/CYTOLOGY O RDERABLES [facility] [place] [address] * POC, GLUCOSE (07/19/2024 7:21 AM EDT) [...] CARE TEST O RDERABLES Performing Organization Address [facility] Co de Phone Number [facility] [place] [address] * Heparin (unfractionated) Level (07/19/2024 6:29 AM [...] MD HEMATOLOGY ORDERABLE S Performing Organization Address City/[facility]/ZIP Co de Phone Number [facility] [place] [address] * POC, GLUCOSE (07/19/2024 4:24 AM EDT) [...] [facility] [place] [address] * (ABNORMAL) Basic Metabolic Panel (07/19/2024 3:45 [...] [facility] [place] [address] * (ABNORMAL) CBC (with Diff) (07/19/2024 3:45 AM EDT) White Blood Cell 12.45(H) 4.00 - 9.50 x10(3)/mc L [facility] Red Blood Cell 4.72 4.58 - 5.54 x10(6)/mc L 07/19/2024 4:[address] [facility] Hemoglobin 13.6(L) 13.7 - 16.5 g/dL 07/19/2024 4:[address] [facility] Hematocrit 41.0 40.5 - 48.5 % 07/19/2024 4:[facility] Mean Cell Volume 86.9 82.9 - 93.1 fL 07/19/2024 4:[address] [facility] Mean Cell Hemoglobin 28.8 27.5 - 32.1 pg 07/19/2024 4:[address] [facility] Mean Cell Hemoglobin Concentration 33.2 32.0 - 35.7 g/dL 07/19/2024 4:[address] [facility] Platelet 421(H) 145 - 357 x10(3)/mc L 07/19/2024 4:[facility] Mean Platelet Volume 9.4 7.6 [...] [facility] [place] [address] * Phosphorus (07/19/2024 3:45 AM EDT) Phosphorus 4.3 2.5 - 4.5 mg/dL 07/19/2024 4:40 AM EDT [facility] Blood VENOUS BLOOD SPECIMEN / Unknown IP Care Team Draw / Unknown 07/19/2024 3:45 AM EDT 07/19/2024 4:00 AM EDT Thony Garcia MD CHEMISTRY ORDERABLES [facility] [place] [address] * Magnesium (07/19/2024 3:45 AM EDT) Magnesium 0.89 0.69 - 1.07 mMol/L 07/19/2024 4:40 AM EDT [facility] Blood VENOUS BLOOD SPECIMEN / Unknown IP Care Team Draw / Unknown 07/19/2024 3:45 AM EDT 07/19/2024 4:00 AM EDT Thony Garcia MD CHEMISTRY ORDERABLES [facility] [place] [address] * POC, GLUCOSE (07/19/2024 12:01 AM EDT) [...] CARE TEST O RDERABLES Performing Organization Address City/[facility]/ZIP Co de Phone Number [facility] [place] [address] * POC, GLUCOSE (07/18/2024 9:46 PM EDT) [...] [facility] [place] [address] * POC, GLUCOSE (07/18/2024 3:20 PM EDT) [...] [facility] [place] [address] * (ABNORMAL) POC, GLUCOSE (07/18/2024 11:53 AM [...] [facility] [place] [address] * Vancomycin Level, Random (07/18/2024 8:01 AM EDT) Vancomycin, Random 17.2 mg/L 2023 9:40 AM EDT [facility] Comment:This level is for de termination of the patient's vancomycin pade-ndfdi-foy-curve (AUC) value. Contact the inpatient pharmacy for interpretation. Blood VENOUS BLOOD SPECIMEN / Unknown IP Care Team Draw / Unknown 07/18/2024 8:01 AM EDT 07/18/2024 8:39 AM EDT Thony Garcia MD CHEMISTRY ORDERABLES [facility] [place] [address] * POC, GLUCOSE (07/18/2024 7:21 AM EDT) [...] CARE TEST O RDERABLES Performing Organization Address [facility] Phone Number [facility] [place] [address] * Heparin (unfractionated) Level (07/18/2024 3:33 AM [...] MD HEMATOLOGY ORDERABLE S Performing Organization Address [facility] Co de Phone Number [facility] [place] [address] * (ABNORMAL) Basic Metabolic Panel (07/18/2024 3:33 [...] [facility] [place] [address] * (ABNORMAL) CBC (with Diff) (07/18/2024 3:33 [...] 27.5 - 32.1 pg 07/18/2024 4:26 AM T [facility] Mean Cell Hemoglobin Concentration 33.3 32.0 - 35.7 g/dL 07/18/2024 4:26 AM EDT [facility] Platelet 392(H) 145 - 357 x10(3)/mc L 07/18/2024 4:26 AM EDT [facility] Mean Platelet Volume 10.2 7.6 - 12.9 fL 07/18/2024 4:26 AM EDT [facility] RDW Standard Deviation 42.0 36.0 - 45.0 fL 07/18/2024 4:[facility] RDW coefficient of variation 13.1 [...] [facility] [place] [address] * Phosphorus (07/18/2024 3:33 AM EDT) Phosphorus 3.7 2.5 - 4.5 mg/dL 07/18/2024 4:50 AM EDT [facility] Blood VENOUS BLOOD SPECIMEN / Unknown IP Care Team Draw / Unknown 07/18/2024 3:33 AM EDT 07/18/2024 4:21 AM EDT Thony Garcia MD CHEMISTRY ORDERABLES Performing Organization Address City/[facility]/ZIP Co de Phone Number [facility] [place] [address] * Magnesium (07/18/2024 3:33 AM EDT) Magnesium 0.88 0.69 - 1.07 mMol/L 07/18/2024 4:50 AM EDT [facility] Blood VENOUS BLOOD SPECIMEN / Unknown IP Care Team Draw / Unknown 07/18/2024 3:33 AM EDT 07/18/2024 4:21 AM EDT Thony Garcia MD CHEMISTRY ORDERABLES [facility] [place] [address] * LDL Cholesterol, Direct (07/18/2024 3:33 AM [...] [facility] [place] [address] * HDL/Cholesterol Profile (07/18/2024 3:33 AM EDT) [...] AM EDT 07/18/2024 4:21 AM EDT Narrative [facility] - 07/18/2024 4:50 AM EDT It [...] ACC/AHA Guidelines (most recently Johann et al. [facility] 08/11/22): * For individuals with atherosclerotic [...] artery disease) Thony Garcia MD CHEMISTRY ORDERABLES [facility] [place] [address] * (ABNORMAL) POC, GLUCOSE (07/18/2024 3:21 AM [...] CARE TEST O RDERABLES Performing Organization Address City/[facility]/ZIP Co de Phone Number [facility] [place] [address] * (ABNORMAL) POC, GLUCOSE (07/18/2024 12:44 AM [...] [facility] [place] [address] * (ABNORMAL) POC, GLUCOSE (07/17/2024 9:02 PM [...] CARE TEST O RDERABLES Performing Organization Address City/[facility] Co de Phone Number [facility] [place] [address] * (ABNORMAL) POC, GLUCOSE (07/17/2024 4:07 PM [...] CARE TEST O RDERAHERNANDEZ Performing Organization Address [facility] Co de Phone Number [facility] [place] [address] * (ABNORMAL) POC, GLUCOSE (07/17/2024 11:31 AM [...] CARE TEST O RDERAHERNANDEZ Performing Organization Address City/[facility]/ZIP Co de Phone Number [facility] [place] [address] * POC, GLUCOSE (07/17/2024 7:38 AM EDT) Pathologist [facility] Glucometer, POC 112 65 - 199 mg/dL 07/17/2024 7:38 AM EDT [facility] Comment:Supplemental ranges: <140 mg/dL before meals <180 mg/dL all other times of the day. Blood CAPILLARY BLOOD / Unknown 07/17/2024 7:38 AM EDT 07/17/2024 7:38 AM EDT Thony Garcia MD POINT OF CARE TEST O RDERABLES [facility] [place] [address] * ELEN, legs, multiple levels (07/17/2024 6:31 AM EDT) [facility] Signature VB Text Report Department: Vascular Surgery Lab Patient: [id number] (GEOVANNA DIXON) CPT: [id number] Referring Physician: VIBHA TIERNEY ?? Indications: PAD [...] ? Dorsalis Pedis (Ankle) Artery ?83 ?0.55 ??[place]idio-Biphasic ? Posterior Tibial (Ankle) Artery ??87 ?0.57 [...] APRN VASCULAR ORDERABLE S Performing Organization Address City/[facility] Co de Phone Number [employer] * (ABNORMAL) [...] CARE TEST O RDERABLES Performing Organization Address City/[facility] Co de Phone Number [facility] [place] [address] * Heparin (unfractionated) Level (07/17/2024 3:42 AM [...] MD HEMATOLOGY ORDERABLE S Performing Organization Address [facility] Co de Phone Number [facility] [place] [address] * Phosphorus (07/17/2024 3:42 AM EDT) Phosphorus 3.6 2.5 - 4.5 mg/dL 07/17/2024 4:47 AM EDT [facility] Blood VENOUS BLOOD SPECIMEN / Unknown IP Care Team Draw / Unknown 07/17/2024 3:42 AM EDT 07/17/2024 4:15 AM EDT Thony Garcia MD CHEMISTRY ORDERABLES Performing Organization Address [facility] Co de Phone Number [facility] [place] [address] * Magnesium (07/17/2024 3:42 AM EDT) Magnesium 0.78 0.69 - 1.07 mMol/L 07/17/2024 4:47 AM EDT [facility] Blood VENOUS BLOOD SPECIMEN / Unknown IP Care Team Draw / Unknown 07/17/2024 3:42 AM EDT 07/17/2024 4:15 AM EDT Thony Garcia MD CHEMISTRY ORDERABLES Performing Organization Address [facility] Co de Phone Number [facility] [place] [address] * (ABNORMAL) Basic Metabolic Panel (07/17/2024 3:42 [...] [facility] [place] [address] * (ABNORMAL) CBC (with Diff) (07/17/2024 3:42 AM EDT) White Blood Cell 11.02(H) 4.00 - 9.50 x10(3)/mc L 07/17/2024 4:[facility] Red Blood Cell 4.43(L) 4.58 [...] MD HEMATOLOGY ORDERABLE S Performing Organization Address [facility] Co de Phone Number [facility] [place] [address] * (ABNORMAL) POC, GLUCOSE (07/17/2024 2:25 AM [...] CARE TEST O GILDA Performing Organization Address [facility] Co de Phone Number [facility] [place] [address] * (ABNORMAL) POC, GLUCOSE (07/17/2024 12:19 AM [...] CARE TEST O GILDA Performing Organization Address City/[facility]/ZIP Co de Phone Number [facility] [place] [address] * (ABNORMAL) POC, GLUCOSE (07/16/2024 8:22 PM [...] CARE TEST O GILDA Performing Organization Address [facility] Co de Phone Number [facility] [place] [address] * POC, GLUCOSE (07/16/2024 3:47 PM EDT) [...] CARE TEST O GILDA Performing Organization Address [facility] Co de Phone Number [facility] [place] [address] * Heparin (unfractionated) Level (07/16/2024 3:39 PM [...] MD HEMATOLOGY ORDERABLE S Performing Organization Address City/[facility]/ZIP Co de Phone Number [facility] [place] [address] * Potassium (07/16/2024 3:39 PM EDT) Pathologist [facility] Potassium 3.9 3.5 - 5.0 mMol/L 07/16/2024 4:15 PM EDT [facility] Blood VENOUS BLOOD SPECIMEN / Unknown IP Care Team Draw / Unknown 07/16/2024 3:39 PM EDT 07/16/2024 3:47 PM EDT Hermila White APRN CHEMISTRY ORDERABL ES Performing Organization Address City/[facility]/ZIP Co de Phone Number [facility] [place] [address] * MRSA PCR Screen (07/16/2024 2:07 PM EDT) MRSA PCR Not Detected 07/17/2024 6:04 PM EDT [facility] Swab BOTH ANTERIOR NARES / Unknown Non Blood Collection / Unknown 07/16/2024 2:07 PM EDT 07/16/2024 2:13 PM EDT Narrative [facility] - 07/17/2024 6:04 PM EDT This test was performed using the Xpert MRSA NxG test kit and is run on the [employer] GeneXpert Dx System. This test is cleared by the U.S. Food and Drug Administration for clinical use and its performance characteristics have been verified by the [facility] at [facility]. This test was performed using the Xpert MRSA NxG test kit and is run on the [employer] GeneXpert Dx System. This test is cleared by the U.S. Food and Drug Administration for clinical use and its performance characteristics have been verified by the [facility] Laboratory at [facility]. Hermila White APRN MOLECULAR ORDERABL ES Performing Organization Address City/[facility]/ZIP Co de Phone Number [facility] [place] [address] * POC, GLUCOSE (07/16/2024 1:33 PM EDT) [...] CARE TEST O RDERABLES Performing Organization Address [facility]/ZIP Co de Phone Number [facility] [place] [address] * (ABNORMAL) POC, GLUCOSE (07/16/2024 11:41 AM [...] CARE TEST O RDERABLES Performing Organization Address [facility] Co de Phone Number [facility] [place] [address] * Heparin (unfractionated) Level (07/16/2024 9:41 AM [...] MD HEMATOLOGY ORDERABLE S Performing Organization Address [facility] Co de Phone Number [facility] [place] [address] * (ABNORMAL) POC, GLUCOSE (07/16/2024 7:10 AM [...] CARE TEST O RDERABLES Performing Organization Address City/[facility]/ZIP Co de Phone Number [facility] [place] [address] * (ABNORMAL) Potassium (07/16/2024 4:15 AM EDT) Potassium 3.2(L) 3.5 - 5.0 mMol/L 07/16/2024 4:53 AM EDT [facility] Blood VENOUS BLOOD SPECIMEN / Unknown IP Care Team Draw / Unknown 07/16/2024 4:15 AM EDT 07/16/2024 4:23 AM EDT Thony Garcia MD CHEMISTRY ORDERABLES Performing Organization Address [facility] Co de Phone Number [facility] [place] [address] * Phosphorus (07/16/2024 4:15 AM EDT) Phosphorus 3.7 2.5 - 4.5 mg/dL 07/16/2024 4:53 AM EDT [facility] Blood VENOUS BLOOD SPECIMEN / Unknown IP Care Team Draw / Unknown 07/16/2024 4:15 AM EDT 07/16/2024 4:23 AM EDT Thony Garcia MD CHEMISTRY ORDERABLES Performing Organization Address [facility] Co de Phone Number [facility] [place] [address] * POC, GLUCOSE (07/16/2024 4:14 AM EDT) [...] CARE TEST O GILDA Performing Organization Address [facility] Co de Phone Number [facility] [place] [address] * (ABNORMAL) POC, GLUCOSE (07/16/2024 2:07 AM [...] CARE TEST Stephanie VO Performing Organization Address [facility] Co de Phone Number [facility] [place] [address] * Heparin (unfractionated) Level (07/16/2024 2:07 AM EDT) [facility] UF Heparin 0.72 IU/mL 07/16/2024 2:36 AM [...] MD HEMATOLOGY ORDERABLE S Performing Organization Address [facility] Co de Phone Number [facility] [place] [address] * Magnesium (07/16/2024 2:07 AM EDT) Magnesium 0.83 0.69 - 1.07 mMol/L 07/16/2024 2:47 AM EDT [facility] Blood VENOUS BLOOD SPECIMEN / Unknown IP Care Team Draw / Unknown 07/16/2024 2:07 AM EDT 07/16/2024 2:14 AM EDT Thony Garcia MD CHEMISTRY ORDERABLES Performing Organization Address [facility] Co de Phone Number [facility] [place] [address] * (ABNORMAL) Basic Metabolic Panel (07/16/2024 2:07 AM EDT) Glucose 248(H) 65 - 199 mg/dL 07/16/2024 2:57 AM EDT [facility] Comment:Glucose Concentratio n >=200 mg/dL plus symptoms is consistent with Diabetes Mellitus. Blood Urea Nitrogen 8(L) 10 - 20 mg/dL 07/16/2024 2:57 AM EDT [facility] Creatinine 0.42(L) 0.80 - 1.50 mg/dL 07/16/2024 2:57 AM EDT [facility] Sodium 135 135 - 145 mMol/L 07/16/2024 2:57 AM EDT [facility] Potassium 07/16/2024 2:57 AM EDT [facility] Comment:Unable to report due to hemolysis Chloride 101 98 - 107 mMol/L 07/16/2024 2:57 AM EDT [facility] Carbon Dioxide 22 22 - 31 mMol/L 07/16/2024 2:57 AM EDT [facility] Anion Gap 12 5 - 15 mMol/L 07/16/2024 2:57 AM EDT [facility] Calcium 9.0 8.5 - 10.5 mg/dL 07/16/2024 2:57 AM EDT [facility] Est Glomerular Filtration Rate - Male 131 mL/min/1. 73 m?? 07/16/2024 2:57 AM EDT [facility] [place] [address] * (ABNORMAL) CBC (with Diff) (07/16/2024 2:07 [...] 3.20 x10(3)/mc L 07/16/2024 2:23 AM EDT [facility] Monocyte % 6.9 % 07/16/2024 2:23 AM EDT [facility] Monocyte Absolute 0.77 0.30 - 0.90 x10(3)/mc L 07/16/2024 2:23 AM EDT [facility] Eos % 1.6 % 07/16/2024 2:23 AM EDT [facility] Eos Absolute 0.18 0.00 - 0.40 x10(3)/mc L 07/16/2024 2:23 AM EDT [facility] Basophil % 0.6 % 07/16/2024 2:23 AM EDT [facility] Baso Absolute 0.07 0.00 - 0.10 x10(3)/mc L 07/16/2024 2:23 AM EDT [facility] Immature Gran % 0.5 % 2:23 AM EDT [facility] Immature Gran Absolute 0.05(H) 0.00 - 0.04 x10(3)/mc L 07/16/2024 2:23 AM EDT [facility] Blood VENOUS BLOOD SPECIMEN / Unknown IP Care Team Draw / Unknown 07/16/2024 2:07 AM EDT 07/16/2024 2:14 AM EDT Thony Garcia MD HEMATOLOGY ORDERABLE S [facility] [place] [address] * (ABNORMAL) POC, GLUCOSE (07/16/2024 12:04 AM [...] CARE TEST O GILDA Performing Organization Address [facility] Co de Phone Number [facility] [place] [address] * (ABNORMAL) POC, GLUCOSE (07/15/2024 8:36 PM [...] CARE TEST O GILDA Performing Organization Address [facility] Co de Phone Number [facility] [place] [address] * Heparin (unfractionated) Level (07/15/2024 8:21 PM [...] MD HEMATOLOGY ORDERABLE S Performing Organization Address City/[facility]/ZIP Co de Phone Number [facility] [place] [address] * (ABNORMAL) POC, GLUCOSE (07/15/2024 4:41 PM [...] CARE TEST O RDERABLES Performing Organization Address [facility] Co de Phone Number [facility] [place] [address] * (ABNORMAL) Vancomycin, trough (07/15/2024 2:19 PM EDT) Vancomycin, Trough 9.7(L) 10.0 - 20.0 mg/L 07/15/2024 3:28 PM EDT [facility] Comment: Varies according to infection source. Blood VENOUS BLOOD SPECIMEN / Unknown IP Care Team Draw / Unknown 07/15/2024 2:19 PM EDT 07/15/2024 3:00 PM EDT Thony Garcia MD CHEMISTRY ORDERABLES Performing Organization Address [facility]/ZIP Co de Phone Number [facility] [place] [address] * (ABNORMAL) POC, GLUCOSE (07/15/2024 1:16 PM [...] CARE TEST O GILDA Performing Organization Address [facility] Co de Phone Number [facility] [place] [address] * POC, GLUCOSE (07/15/2024 8:34 AM EDT) [...] CARE TEST O GILDA Performing Organization Address [facility]/[place] de Phone Number [facility] [place] [address] * (ABNORMAL) POC, GLUCOSE (07/15/2024 4:44 AM [...] CARE TEST O GILDA Performing Organization Address City/[facility] Co de Phone Number [facility] [place] [address] * (ABNORMAL) POC, GLUCOSE (07/15/2024 2:48 AM [...] [facility] [place] [address] * (ABNORMAL) Basic Metabolic Panel (07/15/2024 12:45 AM EDT) Glucose 309(H) 65 - 199 mg/dL 07/15/2024 1:28 AM EDT [facility] Comment:Glucose Concentratio n >=200 mg/dL plus symptoms is consistent with Diabetes Mellitus. Blood Urea Nitrogen 8(L) 10 - 20 mg/dL 07/15/2024 1:28 AM EDT [facility] Creatinine 0.80 0.80 - 1.50 mg/dL 07/15/2024 1:28 AM EDT [facility] Sodium 132(L) 135 - 145 mMol/L 07/15/2024 1:28 AM EDT [facility] Potassium 3.7 3.5 - 5.0 mMol/L 07/15/2024 1:28 AM EDT [facility] Chloride 99 98 - 107 mMol/L 07/15/2024 1:28 AM EDT [facility] Carbon Dioxide 20(L) 22 - 31 mMol/L 07/15/2024 1:28 AM EDT [facility] Anion Gap 13 5 - 15 mMol/L 07/15/2024 1:28 AM EDT [facility] Calcium 8.5 8.5 - 10.5 mg/dL 07/15/2024 1:28 AM EDT [facility] Est Glomerular Filtration Rate - Male 108 mL/min/1. 73 m?? 07/15/2024 1:28 AM EDT [facility] [place] [address] * (ABNORMAL) CBC (with Diff) (07/15/2024 12:45 AM EDT) White Blood Cell 11.70(H) 4.00 - 9.50 x10(3)/mc L 07/15/2024 1:05 AM EDT [facility] Red Blood Cell 4.13(L) 4.58 - 5.54 x10(6)/mc L 07/15/2024 1:05 AM EDT [facility] Hemoglobin 12.1(L) 13.7 - 16.5 g/dL 07/15/2024 1:05 AM EDT [facility] Hematocrit 35.7(L) 40.5 - 48.5 % 07/15/2024 1:05 AM EDT [facility] [...] MD HEMATOLOGY ORDERABLE S Performing Organization Address City/[facility]/ZIP Co de Phone Number [facility] [place] [address] * (ABNORMAL) POC, GLUCOSE (07/15/2024 12:29 AM [...] CARE TEST O RDERABLES Performing Organization Address City/[facility]/ZIP Co de Phone Number [facility] [place] [address] * CT Angiogram Aortic Lower Extremity Runoff (07/14/2024 11:57 PM EDT) WORKSTATION ID [id number] RAD Anatomical Region Laterality Modality Abdomen Computed [...] who have questions please contact the health child day care teacher that requested your imaging first. ? Narrative [...] 2.6 cm vessel length at and just [id number], similar to prior. Anterior tibial artery: No [...] the intravenous administration of contrast. 149 cc [id number]. Maximum intensity projection (MIP) were reformatted. 3-D [...] 2.6 cm vessel length at and just [id number], similar toprior. Anterior tibial artery: No stenosis. [...] patients who have questions please contactthe health child day care teacher that requested your imaging first. Thony Garcia MD IMG CT ORDERABLES * XR Foot Min 3 views Left (Generic) (07/14/2024 9:11 PM EDT) WORKSTATION ID [id number] RAD Anatomical Region Laterality Modality Foot Left [...] who have questions please contact the health child day care teacher that requested your imaging first. ? Narrative [...] patients who have questions please contactthe health child day care teacher that requested your imaging first. Arthur Patel DO IMG DX ORDERABLES * Lactate Whole Blood POC (07/14/2024 7:41 PM EDT) [facility] Lactate, Whole Blood 1.1 0.5 - 2.2 mmol/L 07/14/2024 7:42 PM EDT [facility] Blood ARTERIAL BLOOD / Unknown 07/14/2024 7:41 PM EDT 07/14/2024 7:42 PM EDT Unknown POINT OF CARE TEST O RDERABLES [facility] [place] [address] * (ABNORMAL) Basic Metabolic Panel (07/14/2024 7:39 PM EDT) Pathologist [facility] Glucose 341(H) 65 - 199 mg/dL 07/14/2024 [...] [facility] [place] [address] * (ABNORMAL) CBC (with Diff) (07/14/2024 7:39 [...] - 35.7 g/dL 07/14/2024 7:50 PM EDT [facility] Platelet 313 145 - 357 x10(3)/mc L 07/14/2024 7:50 PM EDT [facility] Mean Platelet Volume 9.5 7.6 - 12.9 fL 07/14/2024 7:50 PM EDT [facility] RDW Standard Deviation 39.5 36.0 - 45.0 fL 07/14/2024 7:50 PM EDT [facility] RDW coefficient of variation 12.6 11.4 - 13.8 % 07/14/2024 7:50 PM EDT [facility] NRBC% auto 0.0 % 07/14/2024 7:50 PM EDT [facility] NRBC Absolute 0.00 0.00 - 0.00 x10(3)/mc L 07/14/2024 7:50 PM EDT [facility] Neutrophil % 67.3 % 07/14/2024 7:50 PM EDT [facility] Neutrophil Absolute (ANC) - Automated 5.85 1.70 - 6.10 x10(3)/mc L 07/14/2024 7:50 PM EDT [facility] Lymph % 23.4 % 07/14/2024 7:50 PM EDT [facility] Lymph Absolute 2.03 0.90 - 3.20 x10(3)/mc L 07/14/2024 7:50 PM EDT [facility] Monocyte % 6.8 % 07/14/2024 7:50 PM EDT [facility] Monocyte Absolute 0.59 0.30 - 0.90 x10(3)/mc L 07/14/2024 7:50 PM EDT [facility] Eos % 1.7 % 07/14/2024 7:50 PM EDT [facility] Eos Absolute 0.15 0.00 [...] 07/14/2024 7:46 PM EDT Arthur Jorge AG [place] [address] documented in this encounter Visit Diagnoses Not [...] on Wed07/15/24 at 0900, Until Discontinued, Routine Given 07/21/2024 [...] on Wed07/16/24 at 0039, Until Wed07/21/24 at 220, For BG 50-70 mg/dL: Oral treatment preferred: [...] over 4 Hours, Warning Vesicant/Irritant Medication Per nurse practitioner per diem labeling, do not administer or Y-site with [...] Oral, 2 TIMES DAILY, First dose on 07/15/24 at 1450, Until Discontinued, Hold for loose [...] Hailey Nick, RN)1018 (Stopped - Provider: Lauren Zavala RN) [...] Gavin Rudd RN - Comment: BG [phone] (JAN Hold - Provider: Admin Adt - [...] Enrique Knowles RN)0956 (Given - Provider: Nava Huggins RN - Comment: [phone] (Given - Provider: Nava Huggins RN)1600 (Due) iodixanoL (Visipaque) (320 mg/mL) injection [...] DAVID) 0950 (Given - Provider: Nava Huggins, RN) metoprolol succinate XL (Toprol-XL) tablet 25 [...] DAVID) 0950 (Given - Provider: Nava Huggins, RN) piperacillin-tazobactam (Zosyn) 3.375 g vial attach to sodium chloride 0.9% 50 mL Mini-Bag Plus 3.375 g, Intravenous, EVERY 8 HOURS, First dose on 07/16/24 at 1230, Until Discontinued, Administer over 4 Hours, Warning Vesicant/Irritant Medication Per nurse practitioner per diem labeling, do not administer or Y-site with lactated ringers., Indication for (Active or Suspected): Sinusitis/Pharyngitis 0147 (Stopped - Provider: Cecilia Cm, DAVID)0419 (New Bag - Provider: Cecilia Cm, RN)0819 (Stopped - Provider: Gavin Rudd RN)0857 [...] Lauren Zavala RN)1702 (Stopped - Provider: Lauren Zavala RN)2037 (New Bag - Provider: Anabel Jonas RN) 0037 (Stopped - Provider: Carlos Enrique Knowles RN)0409 (New Bag - Provider: Carlos Enrique Knowles RN)0809 (Stopped - Provider: Nava Huggins, DAVID)1307 (New Bag - Provider: Nava Huggins, DAVID)1707 (Stopped - Provider: Nava Huggins RN) protriptyline [...] 0216 (New Bag - Provider: Lindsey Haddad RN)0805 (JAN Hold - Provider: Admin Adt - [...] 0409 (Given - Provider: Carlos Enrique Knowles, DAVID)0954 (Given - Provider: Nava Huggins, RN) bisacodyL (Dulcolax) suppository 10 mg(Linked Group [...] scheduled bowel medications ordered, Routine 0857 ([facility] Hold - Provider: Admin Adt - Reason: Transfer to a Procedural area)1206 ([facility] Unhold - Provider: Admin Adt) [...] bowel medications ordered. , Routine 0857 ([facility] Hold - Provider: Admin Adt - Reason: Transfer to a Procedural area)1206 ([facility] Unhold - Provider: Admin Adt) lidocaine (Xylocaine) 1% (10 mg/mL) injection 3 mg 3 mg (0.3 mL), Subcutaneous, ONCE PRN, 1 dose, Starting on Wed07/14/24 at 2208, Until Wed07/21/24 at 220, for discomfort with PIV insertion, Routine 0857 ([facility] Hold - Provider: Admin Adt - Reason: Transfer to a Procedural area)1206 ([facility] Unhold - Provider: Admin Adt) [...] scheduled bowel medications ordered., Routine 0857 ([facility] Hold - Provider: Admin Adt - Reason: Transfer to a Procedural area)1206 ([facility] Unhold - Provider: Admin Adt) [...] Nick, RN)0959 (Given - Provider: Hailey Nick, DAVID)1002 (Given [...] Reason: Transfer to a Procedural area)1206 ([facility] Unhold - Provider: Admin Adt) [...] bowel medications ordered. , Routine 0857 ([facility] Hold - Provider: Admin Adt - Reason: Transfer to a Procedural area)1206 ([facility] Unhold - Provider: Admin Adt) prochlorperazine (Compazine) (5 mg/mL) injection 10 mg(Linked Group 6) 10 mg, Intravenous, EVERY 6 HOURS PRN, Starting on Wed07/14/24 at 2208, Until Wed07/21/24 at 2209, Nausea, Nausea/Vomiting, If multiple antiemetics are ordered, use ondansetron first. If ondansetron ineffective use prochlorperazine. Only give IV if unable to take PO, Routine 0857 ([facility] Hold - Provider: Admin Adt - Reason: Transfer to a Procedural area)1206 ([facility] Unhold - Provider: Admin Adt) prochlorperazine (Compazine) tablet 10 mg(Linked Group 6) 10 mg, Oral, EVERY 6 HOURS PRN, Starting on Wed07/14/24 at 2208, Until Wed07/21/24 at 2209, Nausea, Nausea/Vomiting, If multiple antiemetics are ordered, use ondansetron first. If ondansetron ineffective use prochlorperazine. PO Preferred. If patient unable to take PO, may give IV if ordered., Routine 0857 ([facility] Hold - Provider: Admin Adt - Reason: Transfer to a Procedural area)1206 ([facility] Unhold - Provider: Admin Adt) [...] at 2208, Constipation, Give if no BM 24 hr [...] Routine documented in this encounter Care Teams Bicycle Messenger Relationship Specialty Start Date End Date None None PCP - General 05/27/24 09/17/24 documented as of this encounter
--- OUTSIDE RECORDS SUMMARY | 2024-10-31 15:43 | XMS_ITS | Encounter Summary ---
Author Organization [facility]ly [facility] [place] [address] Care Team Providers Care Artist'S Representative Name Role Phone None Primary Care Provider Unavailabl e Encounter Details Date Type Department Care Team (Late st Contact Info) Description 06/03/2024 Notes [place] [address] Christy Lim Social History Tobacco Use Types Packs/Day Years Used Date Smoking Tobacco: Every Day Cigarettes 1 25 Started: 12/28/1986; Last attempted to quit: 12/28/2011 Alcohol Use Standard Drinks/Week Comments No 0 (1 standard drink = 0.6 oz pur e alcohol) [facility] Utilities Answer Date Recorded In the past 12 months has [facility] [employer], gas, oil, or water [employer] threatened to shut off services in your [...] time in the past 12 m [facility], were you homeless or living in a [...] Christy Lim - 06/03/2024 2:07 PM EDT [facility] [employer] FOLLOW UP: Patient Type: Emergency Department Did the patient participate in scheduled follow up?: No Reason patient did not follow up?: Lost to follow up [facility] attempted to contact Pt at [phone] (M). Number is disconnected, unable to reach Pt. Services have ended. [facility] Recovery Support Pager # [phone] documented in this encounter Plan of Treatment Upcoming Encounters Date Type Department Care Team (Late st Contact Info) Description 11/09/2024 1:30 PM EST Office [place] [address] Isabela Hayward APRN [facility] [place] [address] 11/10/2024 10:00 AM EST Office [place] [address] Dai Whitman APRN 11/21/2024 2:15 PM EST Office [place] [address] Dayanara Grover MD [facility] [place] [address] documented as of this encounter Visit Diagnoses Not on filedocumented in this encounter Care Teams Artist'S Representative Relationship Specialty Start Date End Date None None PCP - General 05/27/24 09/17/24 documented as of this encounter
--- OUTSIDE RECORDS SUMMARY | 2024-10-31 15:44 | XMS_ITS | Encounter Summary ---
[place] [address] Care Team Providers Care Medical Service Representative Name Role Phone Guanako Gusman MD Primary Care Provider [phone] Reason for Visit * Reason Comments Medication Refill Encounter Details Date Type Department Care Team (Late st Contact Info) Description 12/29/2014 Refill Cardiology at [address] [phone] Amy Joshi, JUSTIN [address] [address] Medication Refill Social History Tobacco Use Types [...] PM EST Office Visit Infectious [place] [phone] Isabela Hayward APRN [facility] [place] [address] 11/10/2024 10:00 AM EST Office Visit [place] [address] Dai Whitman, RESHMA 11/21/2024 2:15 PM EST Office Visit [place] [address] Dayanara Grover MD [facility] DR ENDOCRINOLOGY DEPT [place], [place] [phone] documented as of this encounter Visit Diagnoses Not on filedocumented in this encounter Care Teams Medical Service Representative Relationship Specialty Start Date End Date Guanako Gusman MD [address] [facility] [place] [address] PCP - General 02/27/19 05/26/24 documented as of this encounter
--- OUTSIDE RECORDS SUMMARY | 2024-10-31 15:44 | XMS_ITS | Encounter Summary ---
Author Organization [facility] Address [facility] [address] Care Team Providers Care Online Marketing Strategist Name Role Phone Guanako Gusman MD Primary Care Provider [phone] Reason for Visit * Reason Onset Date Comments Medication Refill 08/25/2013 Encounter Details Date Type Department Care Team (Late st Contact Info) Description 08/25/2013 Refill Cardiology at [address] [phone] Sarthak Pollard MD [facility] [place] [address] Medication Refill Social History Tobacco Use Types [...] PM EST Office [place] [phone] Isabela Hayward, [employer] [facility] [place] [address] 11/10/2024 10:00 AM EST Office [place] [phone] Dai Whitman, [employer] 11/21/2024 2:15 PM EST Office [place] [phone] Dayanara Grover MD [facility] [place] [address] documented as of this encounter Visit Diagnoses Diagnosis CAD (coronary artery disease)- Primary Coronary atherosclerosis of unspecified type of vessel, jam[place] or graft documented in this encounter Care Teams Online Marketing Strategist Relationship Specialty Start Date End Date Guanako Gusman MD PCP - General 12/29/11 02/26/19 documented as of this encounter
--- OUTSIDE RECORDS SUMMARY | 2024-10-31 15:44 | XMS_ITS | Encounter Summary ---
Author Organization [facility] [place] [address] Care Team Providers Care Hotel Office Manager Name Role Phone None Primary Care Provider Unavailabl e Encounter Details Date Type Department Care Team (Latest Contact Info) Description 05/30/2024 Travel Social History Tobacco Use Types Packs/Day Years Used Date Smoking Tobacco: Every Day Cigarettes 1 25 Started: 12/28/1986; Last attempted to quit: 12/28/2011 Alcohol Use Standard Drinks/Week Comments No 0 (1 standard drink = 0.6 oz pur e alcohol) [facility] Utilities Answer Date Recorded In the [...] time in the past 12 m [facility], were you homeless or living in a assisted (including now)? No 05/29/2024 IPV Inpatient Questions [...] PM EST Office Visit [place] [phone] Isabela Hayward APRN [facility] [place] [address] 11/10/2024 10:00 AM EST Office Visit [place] [phone] Dai Whitman APRN 11/21/2024 2:15 PM EST Office [place] [address] Dayanara Grover MD [facility] [place] [address] documented as of this encounter Visit Diagnoses Not on filedocumented in this encounter Care Teams Hotel Office Manager Relationship Specialty Start Date End Date None None PCP - General 05/27/24 09/17/24 documented as of this encounter
--- OUTSIDE RECORDS SUMMARY | 2024-10-31 15:44 | XMS_ITS | Encounter Summary ---
Author Organization [facility] Address [facility] [place] [address] Care Team Providers Care Punch Machine Operator Name Role Phone Patric Al MD Primary Care Provider [phone] Reason for Referral * (Routine) - Closed by system - Referral Specialty Diagnoses / Procedures Referred By Contac t Referred To Contact Cardiac Rehabilitation Diagnoses NSTEMI (non-ST elevated myocardial infarction) Sarthak Pollard MD [facility] [place] [address] Referral ID Status Reason Start Date Expiration Date Visits Requested Visits Authorized [id number] Closed by system - Referral Evaluate and Treat 3 02/18/2014 1 1 Encounter Details Date Type Department Care Team (Latest Contact Info) Description 08/20/2013 12:58 PM EDT - 08/22/2013 3:38 PM EDT Hospital Encounter Intermediate [place] [phone] Asad Biggs MD [facility] [place] [id number] Sarthak Pollard MD [facility] [place] [address] Chest pain; Coronary artery disease; [...] appointments: -During 8am-5pm Wednesday through Wednesday call [phone] to speak with a nurse in the cardiology clinic -All other times call [phone] and ask to speak to the main line assembler commissioner of conciliation. Return to work/ usual actvities: 1 week, as tolerated. No squatting or lifting more than 10 pounds until then. Driving: No driving for 48 hours after catheterization. Follow up Appointments: PCP: PATRIC AL MD at [phone] to see you on WednesdayAugust 28 at 10:50 am. Lozenge Dough Mixer, Dr. Oseguera, to see you on 09/20/14 at noon. Please call [phone] with questions. Diabetes medication instructions You should [...] * CHEST PAIN (ANGINA): AFTER YOUR VISIT (SAUDI ARABIAN) * CORONARY ARTERY DISEASE: AFTER YOUR VISIT (SAUDI ARABIAN) * DIABETES DIET GUIDELINES: AFTER YOUR VISIT (SAUDI ARABIAN) * HEART ATTACK: AFTER YOUR VISIT (SAUDI ARABIAN) * HEMOGLOBIN A1C: ABOUT THIS TEST (SAUDI ARABIAN) * HOME BLOOD GLUCOSE TEST: ABOUT THIS TEST (SAUDI ARABIAN) * CARDIAC CATHETERIZATION: AFTER YOUR VISIT (SAUDI ARABIAN) documented in this encounter Medications at Time [...] Patient is a 38 y/o man from [place], [place]. He is disabled and on Social [...] Office of Care Management (OCM) / Clinical Dental Detail Representative (CRC)/ Initial Assessment Discussed patient with Provider [...] to drive with medication. 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 CURRENT FUNCTIONAL STATUS: same SOCIAL / FAMILY SUPPORTS: . Lives with 2 roommates. He states that his 6 yo son, Horacio lives primarily with him. Has another son Sacha who is 20 yo. Brother Star and Mother oCny are helpful. States he has friends who are helpful to him. ADVANCE DIRECTIVES: None on file HEALTH /PRESCRIPTION COVERAGE: Medicare. Pt states he has [place] Medicaid. Not listed in pt's insuranceprofile. Pt states he has Medicare D for prescriptions. Uses [facility] CURRENT HOME/COMMUNITY SERVICES/EQUIPMENT: None FOUR HORSE HITCH DRIVER REFERRAL: Notified FOUR HORSE HITCH DRIVER, Alexandru Casas regarding pt's [place] Medicaid. Pt's [place] Medicaid is not active per Alexandru SALCEDO. PRIMARY CARE PHYSICIAN: PATRIC AL MD ALEJANDRA [phone] [facility] [id number] POTENTIAL DISCHARGE NEEDS: None identified at this [...] while hospitalized. Awaiting Endocrine consult. Calista Jaimes DISPATCHER RADIO CRC/Jaye Dennison MSN BSN RN CRC Office of Care Managment Pager [phone] . * Padma Marquez I, RD - [...] Weight loss options discussed Phase II Referral: [facility] Activity Summary: By discharge, patient will be [...] up with PCP or Dr Bird in [place] I reviewed the patient with and agree with the recommendations and plans * Sarthak Pollard MD - 08/22/2013 7:18 AM EDT Inpatient Cardiology Progress Note Patient Name: Lux Dixon JrFlorencio Service: DRAW FRAME RUNNER / PA Responsible Attending: Dr Pollard Reason for continued hospitalization: Evaluation and management of NSTEMI S/p cardiac catheterization, PCI of LCX, being seen by Cardiac Rehabilitation [facility] 10, Endocrine consulted Active Problems: Active [...] 2v CABG and recurrent angina, +NSTEMI pending [facility]. Stable. Plan: 1. CAD/ CABGx2, stable Telemetry [...] discussed with Dr. Pollard. JUSTIN OROSCO Pager [phone] 08/22/2013 Cardiology Attending Note: I interviewed and [...] as oral agents. He lives in the [facility]. We will set him up to see Dr. Reji Lucia or one of his colleagues. Time spent at bedside and coordinating care: 35 mins. Sarthak Pollard MD, MS Staff Lozenge Dough Mixer Pager [phone] * Latonya Sanders - 08/21/2013 10:28 PM [...] pulses are palpable. Latonya Sanders MD # [id number] * Sarthak Pollard MD - 08/21/2013 8:36 AM EDT Inpatient Cardiology Progress Note Patient Name: Lux Dixon Jr. Service: DRAW FRAME RUNNER / PA Responsible Attending: Dr Pollard Reason for continued hospitalization: Evaluation and management of NSTEMI Active Problems: Active Hospital Problems Diagnosis ??? Coronary artery disease Priority: High NSTEMI 12-29-2011 Cath - LAD, PDA and Distal Circ Disease CABG 01-04-2012 (MARTINEZ-LAD, SVG-PDA) ??? TR (tricuspid regurgitation), mild Mild [place] ??? CAD (coronary artery disease) 2009 , [...] mcg/min (08/21/13215) ??? heparin 2,150 Units/hr (08/21/13 0557) ??? sodium chloride 0.9% Stopped (08/20/13 5383) Physical Exam: Vital Signs: Last value Range [...] 2v CABG and recurrent angina, +NSTEMI pending [facility]. Plan: 1. CAD/ CABGx2, [facility] today Needs risk factors addressed Has not [...] to his RPDA and occlusion of his peoria RCA since that time of his last [...] 35 mins. Sarthak Pollard MD, MS Staff Lozenge Dough Mixer Pager [phone] * Reny Kent RN - 08/20/2013 10:08 [...] Per 106/60 hr 69 nitro Stated At [facility] 1515 pain Level is 11/17 118/58 65 ekg ordered documented in this encounter H&P Notes * Eben Bingham MD - 08/20/2013 3:12 PM EDT Cardiology Admission H & P Patient Name: Lux Dixon Jr. MRN No - [id number] Date of - 1975 Age - 38 [...] CABG MARTINEZ-LAD, SVG-PDA and Obesity transferred from [facility] because of CP which started yesterday while [...] relieved after 1 shot of morphine at [place]. His work showed NSR ECG w/o ST changes, elevated 2nd set of trop and negative D-dimer, wbc of 15K, normal electrolytes, glucose of 546, normal BUN/cr. He was [id number] of plavix and started on heparin gtt. He had some CP on arrival to [facility] which was . ECG [...] FOR CABG performed by INNA TOVAR at [facility] MAIN OR ??? Cabg, artery-vein, single 01/04/2012 @CABG, VENOUS & ARTERIAL GRAFT;SINGLE VEIN GRAFT performed by INNA TOVAR at [facility] MAIN OR Family History: Family History [...] CABG MARTINEZ-LAD, SVG-PDA in 2011 transferred from [place] because of CP which is different than his previous episode of CP. This time pain started in arm and radiating to chest and is also mild 1-. He also drove for 6 hrs yesterday. He had positive tropsat [place] although his ECG was negative. The pain relieved after leaning forward. I have above mentioned DD and also his d-dimer at [place] was negative so low prob of PE. I would admit for ACS and cont heparin. i would also keep him NPO and starting on nitro drip per Dr. Horvath's rec. Admit to telemetry Cycle bio-markers Repeat EKG Continue aspirin, simvastatin, metoprolol, plavix 300 mg x1 (given at [place]) and heparin Check fasting lipid profile and [...] was reviewed and signed. 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 Diabetes History: Lux Dixon Jr. [...] of SVG to RPDA and occlusion of peoria RCA. LVEDP 21. PCI of mid and [...] up with PCP or Dr Bird in [place] ??? Obesity Weight is 130.5 Kg [...] SVG-PDA in 2011 and obesity transferred from [facility] for chest pain which started the day [...] or vomiting. Hospital Course: On admission to [facility], he had CP on arrival to [...] occlusion of SVG to RPDA, occlusion of peoria RCA. The SVG to RCA was not [...] up with PCP or Dr Bird in [place] Smoking cessation was advised & discussed. [...] appointments: -During 8am-5pm Wednesday through Wednesday call [phone] to speak with a nurse in the cardiology clinic -All other times call [phone] and ask to speak to the main line assembler commissioner of conciliation. Return to work/ usual actvities: 1 week, as tolerated. No squatting or lifting more than 10 pounds until then. Driving: No driving for 48 hours after catheterization. Follow up Appointments: PCP: PATRIC AL MD at [phone] to see you on WednesdayAugust 28 at 10:50 am. Lozenge Dough Mixer, Dr. Oseguera, to see you on 09/20/14 at noon. Please call [phone] with questions. Diabetes medication instructions You should [...] Complete By Expires Referral to Cardiac Rehab [[id number] Custom] Process Instructions: If no progress note charted, please enter Clinical details in comments. Scheduling Instructions: Comments: Pt will participate in cardiac rehab @ [facility] Questions: Responses: Reason for referral NSTEMI Provider Contact Information: JALEN Billingsley NP Dr Bruce Andrus [phone] Discharge References/Attachments: Discharge References/Attachments CHEST PAIN (ANGINA): AFTER YOUR VISIT (SAUDI ARABIAN) CORONARY ARTERY DISEASE: AFTER YOUR VISIT (SAUDI ARABIAN) DIABETES DIET GUIDELINES: AFTER YOUR VISIT (SAUDI ARABIAN) HEART ATTACK: AFTER YOUR VISIT (SAUDI ARABIAN) HEMOGLOBIN A1C: ABOUT THIS TEST (SAUDI ARABIAN) HOME BLOOD GLUCOSE TEST: ABOUT THIS TEST (SAUDI ARABIAN) Signed: JUSTIN OROSCO Pager [phone] DATE: 08/22/2013 * Miscellaneous - Provider, Scanning - 08/20/2013 2:59 PM EDT * Miscellaneous - Provider, Scanning - 08/20/2013 2:58 PM EDT documented in this encounter Plan of Treatment Upcoming Encounters Date Type Department Care Team (Late st Contact Info) Description 11/09/2024 1:30 PM EST Office [place] [phone] Isabela Hayward, SCO[facility] [place] [address] 11/10/2024 10:00 AM EST Office [place] [phone] Dai Whitman APRN 11/21/2024 2:15 PM EST Office [place] [phone] Dayanara Grover MD [facility] [place] [address] Scheduled Orders Name Type Priority Associated Diagnoses Orde r Schedule EKG 12 Lead ECG STAT Chest pain One Time for 1 Occurrences starting 08/20/2013 until 08/20/2013 Scheduled Referrals Name Type Priority Associated Diagnoses Orde r Schedule Referral to Cardiac Rehab Outpatient Referral Routine NSTEMI (non-ST elevated myocardial infarction) Ordered: 08/22/2013 documented as of this encounter Procedures Procedure Name Priority Date/Time Associated Diagnosis Comments TECHNOLOGY TRAINER SCAN 08/24/2013 11:52 AM EDT POCT GLUCOSE [...] 3:53 AM EDT DIFFERENTIAL, AUTOMATED Routine 08/21/20 13 3:53 AM EDT CARDIAC EN[facility] ([facility] [...] in this encounter Results * SCAN DOC: TECHNOLOGY TRAINER (08/24/2013 11:52 AM EDT) Anatomical Region Laterality Modality Other Narrative 08/24/2013 12:55 PM EDT Procedure Note Provider, Scanning - 08/24/2013 11:52 AM EDT Scanning Provider MEDIA MGR SCAN EXT O RDR/RSLT * (ABNORMAL) POCT Glucose (08/22/2013 11:52 AM EDT) [facility] Glucose, POC 225(H) 60 - 199 mg/dL [facility] Comment: Supplemental ranges: <110 mg/dL before meals <200 mg/dL all other times of the day Blood specimen (specimen) 08/22/2013 11:52 AM EDT 08/22/2013 11:52 AM EDT Asad Biggs MD POINT OF CARE TEST O RDERABLES Performing Organization Address [facility] de Phone Number [facility] * POCT Glucose (08/22/2013 7:47 AM EDT) Glucose, POC 199 60 - 199 mg/dL [facility] Comment: Supplemental ranges: <110 mg/dL before meals <200 mg/dL all other times of the day Blood specimen (specimen) 08/22/2013 7:47 AM EDT 08/22/2013 7:47 AM EDT Asad Biggs MD POINT OF CARE TEST O RDERABLES Performing Organization Address [facility] Phone Number [facility] * EKG 12 Lead (08/22/2013 7:45 AM EDT) Ventricular rate 79 BPM MUSE SYSTEM Atrial Rate 79 BPM MUSE SYSTEM P-R Interval 182 ms MUSE SYSTEM QRS Duration 108 ms MUSE SYSTEM Q-T Interval 406 ms MUSE SYSTEM QTC Calculated (Bezet) 465 ms MUSE SYSTEM Calculated P [place] 57 degrees MUSE SYSTEM Calculated R [place] 23 degrees MUSE SYSTEM Calculated T [place] 2 degrees MUSE SYSTEM INTERPRETATION Normal sinus rhythm Cannot rule out Inferior infarct , age undetermined When compared with ECG of 21-AUG-2013 14:53, Borderline criteria for Inferior infarct are now present Confirmed by Pablito Torres MD ([id number]) on 08/23/2013 10:09:45 AM MUSE SYSTEM 08/22/2013 7:45 AM EDT 08/23/2013 10:09 AM EDT Tim Uribe MD ECG ORDERABLES Performing Organization Address [facility]/[employer] [place] Phone Number MUSE SYSTEM * (ABNORMAL) Differential, [...] Absolute 0.06(H) 0.00 - 0.05 x10(3)/mc L CERBRIAN CAENNIUM Blood specimen (specimen) 08/22/2013 4:03 AM EDT 08/22/2013 4:42 AM EDT Tim Uribe MD HEMATOLOGY ORDERAB LES ARIAN NELSON * (ABNORMAL) BMP w/fasting Glucose (08/22/2013 4:03 AM EDT) Glucose Fasting 170(H) 65 - 99 mg/dL CERNER ROBYENNIUM Comment: ?Fasting* Glucose Interpretive Criteria Normal ?65-99 [...] of Diabetes Mellitus, Position Statement from the [place] Diabetes Association. ??Diabetes Care, Volume 33, Supplement [...] MD CHEMISTRY ORDERABL ES Performing Organization Address [facility] de Phone Number ARIAN NELSON * (ABNORMAL) Cardiac Enzymes (08/22/2013 4:03 AM EDT) Pathologist [facility] Troponin-T 0.95(H) <=0.03 ng/mL CERNER MILLENNIUM [...] consensus document of the Joint Society of Cardiology/[place] College of Cardiology Committee for the redefinition of myocardial infarction. Journal of the [place] College of Cardiology 2000; 36: 959-969] Creatine Kinase 455(H) 0 - 200 unit/L CERNER [employer] CorporationENNIUM Blood specimen (specimen) 08/22/2013 4:03 AM EDT 08/22/2013 4:42 AM EDT Narrative Resulting Agency Comment Spec In Lab Tim Uribe MD CHEMISTRY ORDERABL ES Performing Organization Address [facility]/ZIP Co de Phone Number ARIAN CERDAIUM * (ABNORMAL) CBC (with Diff) (08/22/2013 4:03 AM EDT) Pathologist [facility] White Blood Cell 10.0 4.0 - 10.0 x10(3)/mc L CERNER MILLENNIUM Red Blood Cell 4.17(L) 4.63 - 6.08 x10(6)/mc L CERNER MILLENNIUM Hemoglobin 12.7(L) 13.7 - 17.5 gm/dL [facility] Hematocrit 37.7(L) 40.0 - 51.0 % [facility] Mean Cell Volume 90.4 79.0 - 92.0 fL [facility] Mean Cell Hemoglobin 30.5 25.6 - 32.2 pg [facility] Mean Cell Hemoglobin Concentration 33.7 32.0 - 36.5 gm/dL [facility] Platelet 201 145 - 370 x10(3)/mc L [facility] RDW Standard Deviation 40.4 35.0 - 46.0 fL [facility] RDW coefficient of variation 12.4 10.9 - 14.4 % [facility] Mean Platelet Volume 11.2 9.0 - 12.0 fL [facility] Blood specimen (specimen) 08/22/2013 4:03 AM EDT 08/22/2013 4:42 AM EDT Narrative Resulting Agency Comment Spec In Lab Tim Uribe MD HEMATOLOGY ORDERAB LES Performing Organization Address City/[facility]/ZIP Co de Phone Number [facility] * POCT Glucose (08/21/2013 10:43 PM EDT) Glucose, POC 193 60 - 199 mg/dL [facility] Comment: Supplemental ranges: <110 mg/dL before meals <200 mg/dL all other times of the day Blood specimen (specimen) 08/21/2013 10:43 PM EDT 08/21/2013 10:43 PM EDT Asad Bgigs MD POINT OF CARE TEST O RDERABLES Performing Organization Address [facility]/ZIP Co de Phone Number [facility] * (ABNORMAL) POCT Glucose (08/21/2013 8:28 PM EDT) Glucose, POC 259(H) 60 - 199 mg/dL [facility] Comment: Supplemental ranges: <110 mg/dL before meals <200 mg/dL all other times of the day Blood specimen (specimen) 08/21/2013 8:28 PM EDT 08/21/2013 8:28 PM EDT Asad Biggs MD POINT OF CARE TEST O RDERABLES Performing Organization Address [facility]/[employer] de Phone Number ARIAN NELSON * (ABNORMAL) Cardiac Enzymes (08/21/2013 6:36 PM EDT) Troponin-T 0.93(H) <=0.03 ng/mL [facility] Comment: 0.03 ng/mL: Represents the 99th [...] consensus document of the Joint Society of Cardiology/[place] College of Cardiology Committee for the redefinition of myocardial infarction. Journal of the [place] [employer] College of Cardiology 2000; 36: 959-969] Creatine Kinase 594(H) 0 - 200 unit/L [facility] Blood specimen (specimen) 08/21/2013 6:36 PM EDT 08/21/2013 6:47 PM EDT Narrative Resulting Agency Comment Spec In Lab Sarthak Pollard MD CHEMISTRY ORDERABLES Performing Organization Address [facility]/[employer] de Phone Number ARIAN NELSON * POCT Glucose (08/21/2013 4:25 PM EDT) Glucose, POC 138 60 - 199 mg/dL [facility] Comment: Supplemental ranges: <110 mg/dL before meals <200 mg/dL all other times of the day Blood specimen (specimen) 08/21/2013 4:25 PM EDT 08/21/2013 4:25 PM EDT Asad Biggs MD POINT OF CARE TEST O RDERAHERNANDEZ Performing Organization Address [facility]/[employer] de Phone Number [facility] * EKG 12 Lead (08/21/2013 2:53 PM EDT) Ventricular rate 75 BPM MUSE SYSTEM Atrial Rate 75 BPM MUSE SYSTEM P-R Interval 172 ms MUSE SYSTEM QRS Duration 106 ms MUSE SYSTEM Q-T Interval 388 ms MUSE SYSTEM QTC Calculated (Bezet) 433 ms MUSE SYSTEM Calculated P [place] 11 degrees MUSE SYSTEM Calculated R [place] 35 degrees MUSE SYSTEM Calculated T [place] 1 degrees MUSE SYSTEM INTERPRETATION Normal sinus rhythm Normal ECG When compared with ECG of 21-AUG-2013 02:54, No significant change was found Confirmed by Pablito Torres MD ([id number]) on 08/22/2013 3:01:48 PM MUSE SYSTEM 08/21/2013 2:53 PM EDT 08/22/2013 3:01 PM EDT Tim Uribe MD ECG ORDERABLES Performing Organization Address [facility]/[employer] de Phone Number MUSE SYSTEM * Cardiac Catheterization (08/21/2013 2:38 PM EDT) Anatomical Region Laterality Modality Other Narrative 08/21/2013 7:29 PM EDT Procedure Note Provider, Scanning - 08/21/2013 3:30 PM EDT Asad Biggs MD CARDIAC CATH ORDERAB LES * (ABNORMAL) POCT Glucose (08/21/2013 11:37 AM EDT) Glucose, POC 200(H) 60 - 199 mg/dL [facility] Comment: Supplemental ranges: <110 mg/dL before meals <200 mg/dL all other times of the day Blood specimen (specimen) 08/21/2013 11:37 AM EDT 08/21/2013 11:37 AM EDT Asad Biggs MD POINT OF CARE TEST O RDERABLES Performing Organization Address [facility] de Phone Number [facility] * (ABNORMAL) APTT (08/21/2013 11:09 AM EDT) Partial Thromboplastin Time 63(H) 25 - 35 sec [facility] Comment: Recommended therapeutic PTT range for full dose unfractionated heparin is 80-114 seconds. Blood specimen (specimen) 08/21/2013 11:09 AM EDT 08/21/2013 11:42 AM EDT Narrative Resulting Agency Comment Spec In Lab Asad Biggs MD HEMATOLOGY ORDERABLE S Performing Organization Address [facility] de Phone Number [facility] * Echocardiogram Transthoracic(Leb) (08/21/2013 9:16 AM EDT) EF 65 HEART[facility] SYSTEM Anatomical Region Laterality Modality Other 08/21/2013 Narrative 08/21/2013 9:51 AM EDT Procedure: ? Transthoracic Echocardiogram Patient: ? QUIANA AUSTIN P ?(Age): 1975(38) Med Rec#: ?[id number] ? Sex: ?M ? Site Loc: ?[facility] ? Ht / Wt: ??180(cm)/127(kg) Pt. Loc: ? Adult Floor ?BSA: ?2.52 Study Date: ?08/21/2013 ? Pt. Type: Inpatient Tape: ? Referring: Eben Bingham Referring: AKANKSHA CAI [employer] Mechanic: Patric Blunt [employer]UST Interpreting Fellow: Luca Wilson ([id number]) Diagnosis: ??Chest pain (786.50) CPT Code(s): ??Echo Full (77079), ??Spectral Doppler (42779), ??Color Doppler (37826), Indication(s): ??Chest Pain Rhythm: HR ?BP ?121/62 [...] ? Mid-Inferior ?Normal ? Mid-Inferoseptal ?Normal ? Vida-Septal ? Normal ? Vida-Anterior ? Normal ? Vida-Lateral ?Normal ? Vida-Inferior ? Normal ? Vida-Tip ?Normal ? Chambers ?Value ?Units (Range) ? [...] 08/21/2013 09:50:27 Images reviewed and interpretation verified [facility] Cardiac Ultrasound Laboratory Resulting Agency Comment 1X Procedure Note Umair Brock MD - 08/21/2013 Procedure: Transthoracic Echocardiogram Patient: QUIANA Llanos (Age): 1975(38) Med Rec#: [id number] Sex: M Site Loc: [facility] Ht / Wt: 180(cm)/127(kg) Pt. Loc: Adult Floor BSA: 2.52 Study Date: 08/21/2013 Pt. Type: Inpatient Tape: Referring: Eben Bingham Referring: AKANKSHA CAI [employer] Mechanic: Patric Blunt [employer]UST Interpreting Fellow: Luca Wilson ([id number]) Diagnosis: Chest pain (786.50) CPT Code(s): Echo Full (41273), Spectral Doppler (65848), Color Doppler (76131), Indication(s): Chest Pain Rhythm: HR BP 121/62 [...] Normal Mid-Posterolateral Normal Mid-Inferior Normal Mid-Inferoseptal Normal Vida-Septal Normal Vida-Anterior Normal Vida-Lateral Normal Vida-Inferior Normal Vida-Tip Normal Chambers Value Units (Range) LV EF [...] 08/21/2013 09:50:27 Images reviewed and interpretation verified [facility] Cardiac Ultrasound Laboratory Eben Ruiz MD ECHO ORDERABLES * (ABNORMAL) POCT Glucose (08/21/2013 8:33 AM EDT) Pathologist [facility] Glucose, POC 202(H) 60 - 199 mg/dL [facility] Comment: Supplemental ranges: <110 mg/dL before meals <200 mg/dL all other times of the day Blood specimen (specimen) 08/21/2013 8:33 AM EDT 08/21/2013 8:33 AM EDT Asad Biggs MD POINT OF CARE TEST O RDERABLES Performing Organization Address [facility]/[employer] de Phone Number [facility] * (ABNORMAL) APTT (08/21/2013 3:53 AM EDT) Pathologist [facility] Partial Thromboplastin Time 61(H) 25 - 35 sec [facility] Comment: Recommended therapeutic PTT range for full dose unfractionated heparin is 80-114 seconds. Blood specimen (specimen) 08/21/2013 3:53 AM EDT 08/21/2013 4:00 AM EDT Narrative Resulting Agency Comment Spec In Lab Eben Ruiz MD HEMATOLOGY ORDERABLE S Performing Organization Address [facility]/[employer] de Phone Number [facility] * (ABNORMAL) Differential, Automated (08/21/2013 3:53 AM EDT) Pathologist [facility] Neutrophil % 70.9 34.0 - 71.0 % [...] EDT Eben Ruiz MD HEMATOLOGY ORDERABLE S [facility] OMAR * (ABNORMAL) Cardiac Enzymes (08/21/2013 3:53 AM [...] consensus document of the Joint Society of Cardiology/[place] College of Cardiology Committee for the redefinition of myocardial infarction. Journal of the [place] College of Cardiology 2000; 36: 959-969] Creatine Kinase 777(H) 0 - 200 unit/L CERNER [employer]ENNIUM Blood specimen (specimen) 08/21/2013 3:53 AM EDT [...] of Diabetes Mellitus, Position Statement from the [place] Diabetes Association. ??Diabetes Care, Volume 33, Supplement [...] Platelet Volume 11.1 9.0 - 12.0 fL [facility] MILLENNIUM Blood specimen (specimen) 08/21/2013 3:53 AM EDT 08/21/2013 4:00 AM EDT Narrative Resulting Agency Comment Spec In Lab Asad Biggs MD HEMATOLOGY ORDERABLE S Performing Organization Address [facility]/[place] Co de Phone Number [facility] CERDAIUM * Prothrombin Time (08/21/2013 3:53 AM EDT) Prothrombin Time 13.5 12.0 - 15.0 sec [facility] ROBYENNIUM Comment: [facility] Transfusion Committee Guidelines: INR less than 2.0, PTT less than OR equal to 43.5 seconds, or Fibrinogen greater than or equal to 100 mg/dl indicate adequate procoagulant activity for hemostasis in patients without underlying bleeding disorders. International Normalization Ratio 1.0 0.9 - 1.1 [facility] Blood specimen (specimen) 08/21/2013 3:53 AM EDT 08/21/2013 4:00 AM EDT Narrative Resulting Agency Comment Spec In Lab Asad Biggs MD HEMATOLOGY ORDERABLE S Performing Organization Address City/[facility]/[place] Co de Phone Number [facility] * (ABNORMAL) Triglyceride (08/21/2013 3:53 AM EDT) Triglyceride 733(H) <=149 mg/dL [facility] Comment: Reference Range: Normal triglycerides: ??<150 mg/dL Borderline high: ??150-199 mg/dL High: ??200-499 mg/dL Very high: ??>ps=490 mg/dL ELISEO 2001; 285(19):6140-0642 Blood specimen (specimen) 08/21/2013 3:53 AM EDT 08/21/2013 4:00 AM EDT Narrative Resulting Agency Comment Spec In Lab Eben Ruiz MD CHEMISTRY ORDERABLES Performing Organization Address [facility] de Phone Number [facility] * (ABNORMAL) HDL/Cholesterol Profile (08/21/2013 3:53 AM EDT) Cholesterol, Total 218(H) <=199 mg/dL [facility] Comment: Recommendations of the NCEP Adult Treatment Panel for the following risk cutoff thresholds for the [place] population: Desirable: <200 mg/dL Borderline High: 200-239 mg/dL High: > or = 240 mg/dL HDL Cholesterol 24(L) >=40 mg/dL [facility]ER NER [facility] Comment: Reference range: ??Low HDL: ?? < 40 mg/dL ??Normal: ?40-60 mg/dL ??Desirable: > 60 mg/dL ELISEO 2001; 285(19):0976-3777 Cholesterol/HDL Ratio 9.1 ratio [facility] Comment: A Cholesterol to HDL ratio below 4:1 is desirable. ??Studies suggest that increased CAD risk occurs at ratios above 5 for females and above 6 for men. ? [place] Heart Association ??(http://www.americanheart.org) ? Jazmine Int Med, 1994; 121:641 ? AM J Med, 1998; 105(1A):48S Blood specimen (specimen) 08/21/2013 3:53 AM EDT 08/21/2013 4:00 AM EDT Narrative Resulting Agency Comment Spec In Lab Eben Ruiz MD CHEMISTRY ORDERABLES Performing Organization Address [facility]/[place] Co de Phone Number CERNER MILLENNIUM * (ABNORMAL) LDL Cholesterol, Direct (08/21/2013 3:53 AM EDT) LDL Cholesterol, Direct 107(H) <=99 mg/dL [facility] Comment: The National Cholesterol Education Program (NCEP) has set the following guidelines for LDL Cholesterol: Reference range: ?? Optimal: ?<100 mg/dL ?? Near Optimal/Above Optimal: ?? 100-129 mg/dL ?? Borderline high: ?130-159 mg/dL ?? High: ? 160-189 mg/dL ?? Very high: ?>zy=457 mg/dL ELISEO 2001: 285(52):0726-3234 Blood specimen (specimen) 08/21/2013 3:53 AM EDT 08/21/2013 4:00 AM EDT Narrative Resulting Agency Comment Spec In Lab Eben uRiz MD CHEMISTRY ORDERABLES [facility] * (ABNORMAL) Hemoglobin A1c (08/21/2013 3:53 AM EDT) Hemoglobin A1c 10.0(H) 4.3 - 6.1 % [facility] Comment: The [place] Diabetes Association (ADA) has stated that HbA1c [...] into estimated average glucose values. ??Diabetes Care 2008:31(8):3793-0446. Blood specimen (specimen) 08/21/2013 3:53 AM EDT [...] (Bezet) 431 ms MUSE SYSTEM Calculated P [place] 4 degrees MUSE SYSTEM Calculated R [place] 28 degrees MUSE SYSTEM Calculated T [place] 21 degrees MUSE SYSTEM INTERPRETATION Normal sinus rhythm Nonspecific T wave abnormality Abnormal ECG When compared with ECG of 20-AUG-2013 15:19, No significant change was found Confirmed by Pablito Torres MD ([id number]) on 08/21/2013 12:56:35 PM MUSE SYSTEM 08/21/2013 2:54 AM EDT 08/21/2013 12:56 PM EDT Eben Ruiz MD ECG ORDERABLES Performing Organization Address [facility]/[place] Co de Phone Number MUSE SYSTEM * (ABNORMAL) POCT Glucose (08/21/2013 1:59 AM EDT) Glucose, POC 262(H) 60 - 199 mg/dL [facility] Comment: Supplemental ranges: <110 mg/dL before meals <200 mg/dL all other times of the day Blood specimen (specimen) 08/21/2013 1:59 AM EDT 08/21/2013 1:59 AM EDT Asad Biggs MD POINT OF CARE TEST O RDERABLES Performing Organization Address [facility] de Phone Number [facility] * (ABNORMAL) POCT Glucose (08/20/2013 11:54 PM EDT) Glucose, POC 290(H) 60 - 199 mg/dL [facility] Comment: Supplemental ranges: <110 mg/dL before meals <200 mg/dL all other times of the day Blood specimen (specimen) 08/20/2013 11:54 PM EDT 08/20/2013 11:54 PM EDT Asad Biggs MD POINT OF CARE TEST O RDERABLES Performing Organization Address [facility] de Phone Number [facility] * APTT (08/20/2013 11:51 PM EDT) Partial Thromboplastin Time 35 25 - 35 sec [facility] Comment: Recommended therapeutic PTT range for full dose unfractionated heparin is 80-114 seconds. Blood specimen (specimen) 08/20/2013 11:51 PM EDT 08/21/2013 12:01 AM EDT Narrative Resulting Agency Comment Spec In Lab Asad Biggs MD HEMATOLOGY ORDERABLE S Performing Organization Address [facility]/[place] Co de Phone Number ARIAN NELSON * [...] consensus document of the Joint Society of Cardiology/[place] College of Cardiology Committee for the redefinition of myocardial infarction. Journal of the [place] College of Cardiology 2000; 36: 959-969] Creatine Kinase 828(H) 0 - 200 unit/L ARIAN NELSON Blood specimen (specimen) 08/20/2013 9:40 PM EDT 08/20/2013 9:47 PM EDT Narrative Resulting Agency Comment Spec In Lab Eben Ruiz MD CHEMISTRY ORDERABLES Performing Organization Address City/[facility]/ZIP Co de Phone Number ARIAN NELSON [...] Glucose, POC 200(H) 60 - 199 mg/dL [facility] Comment: Supplemental ranges: <110 mg/dL before meals <200 mg/dL all other times of the day Blood specimen (specimen) 08/20/2013 8:26 PM EDT 08/20/2013 8:26 PM EDT Asad Biggs MD POINT OF CARE TEST O RDERABLES [facility] * (ABNORMAL) POCT Glucose (08/20/2013 5:03 PM EDT) Glucose, POC 230(H) 60 - 199 mg/dL [facility] Comment: Supplemental ranges: <110 mg/dL before [...] (Bezet) 435 ms MUSE SYSTEM Calculated P [place] 3 degrees MUSE SYSTEM Calculated R [place] 19 degrees MUSE SYSTEM Calculated T [place] 35 degrees MUSE SYSTEM INTERPRETATION Normal sinus [...] Absolute 0.0 0.0 - 0.2 x10(3)/mc L [facility] MILLENNIUM Immature Gran % 0.30 0.00 - 0.66 % [facility] MILLENNIUM Comment: Immature granulocytes(IG's)percentage and absolute count will include metamyelocytes, myelocytes, and promyelocytes. Blood smears from CBCs yielding IG's will be scanned manually for concordance. If this scan disagrees with the automated IG or if promyelocytes are noted, a manual differential will be performed. Immature Gran Absolute 0.04 0.00 - 0.05 x10(3)/mc L [facility] Blood specimen (specimen) 08/20/2013 1:45 PM EDT 08/20/2013 1:45 PM EDT Asad Biggs MD HEMATOLOGY ORDERABLE S Performing Organization Address [facility]/[place] Co de Phone Number [facility] * Magnesium (08/20/2013 1:45 PM EDT) Magnesium 0.74 0.69 - 1.07 mmol/L [facility] Blood specimen (specimen) 08/20/2013 1:45 PM EDT 08/20/2013 1:54 PM EDT Narrative Resulting Agency Comment Spec In Lab Asad Biggs MD CHEMISTRY ORDERABLES Performing Organization Address [facility]/[place] Co de Phone Number [facility] * (ABNORMAL) Cardiac Enzymes (08/20/2013 1:45 PM EDT) Troponin-T 0.34(H) <=0.03 ng/mL [facility] Comment: 0.03 ng/mL: Represents the 99th [...] consensus document of the Joint Society of Cardiology/[place] College of Cardiology Committee for the redefinition of myocardial infarction. Journal of the [place] College of Cardiology 2000; 36: 959-969] Creatine [...] Biggs MD CHEMISTRY ORDERABLES Performing Organization Address [facility]/[place] Co de Phone Number ARIAN [employer] * (ABNORMAL) APTT (08/20/2013 1:45 PM EDT) Partial Thromboplastin Time 40(H) 25 - 35 sec ARIAN CERDAIUM Comment: Recommended therapeutic PTT range for full dose unfractionated heparin is 80-114 seconds. Blood specimen (specimen) 08/20/2013 1:45 PM EDT 08/20/2013 1:45 PM EDT Narrative Resulting Agency Comment Spec In Lab Asad Biggs MD HEMATOLOGY ORDERABLE S Performing Organization Address [facility]/[place] Co de Phone Number JILLIANBRIAN [employer] * Prothrombin Time (08/20/2013 1:45 PM EDT) Prothrombin Time 13.7 12.0 - 15.0 sec ARIAN [employer] CorporationYARYIUM Comment: [facility] Transfusion Committee Guidelines: INR less than 2.0, PTT less than OR equal to 43.5 seconds, or Fibrinogen greater than or equal to 100 mg/dl indicate adequate procoagulant activity for hemostasis in patients without underlying bleeding disorders. International Normalization Ratio 1.0 0.9 - 1.1 ARIAN CERDAIUM Blood specimen (specimen) 08/20/2013 1:45 PM EDT 08/20/2013 1:45 PM EDT Narrative Resulting Agency Comment Spec In Lab Asad Biggs MD HEMATOLOGY ORDERABLE S Performing Organization Address [facility] de Phone Number ARIAN NELSON * D-Dimer, Quantitative (08/20/2013 1:45 PM EDT) D-Dimer <200 0 - 500 FEU ng/ml CERBRIAN CAENNIUM Comment: The D-Dimer assay is used to [...] ORDERABLE S Performing Organization Address [facility] de Phone Number ARIAN NELSON [...] Volume 11.4 9.0 - 12.0 fL ARIAN NELSON Blood specimen (specimen) 08/20/2013 1:45 [...] ORDERABLE S Performing Organization Address [facility]/[place] Co de Phone Number ARIAN NELSON * Blue Tube HOLD (08/20/2013 1:45 PM EDT) Blue Hold Sample in lab. ARIAN NELSON Blood specimen (specimen) 08/20/2013 1:45 PM EDT 08/20/2013 1:45 PM EDT Asad Biggs MD HEMATOLOGY ORDERABLE S Performing Organization Address City/[facility]/[place] Co de Phone Number ARIAN CERDAIUM * Green Tube HOLD (08/20/2013 1:45 PM EDT) Green Hold Sample in lab. ARIAN NELSON Blood specimen (specimen) 08/20/2013 1:45 PM EDT 08/20/2013 1:45 PM EDT Asad Biggs MD CHEMISTRY ORDERABLES ARIAN NELSON * (ABNORMAL) POCT Glucose (08/20/2013 1:23 PM EDT) Glucose, POC 243(H) 60 - 199 mg/dL ARIAN NELSON Comment: Supplemental ranges: <110 mg/dL before meals <200 mg/dL all other times of the day Blood specimen (specimen) 08/20/2013 1:23 PM EDT 08/20/2013 1:23 PM EDT Asad Biggs MD POINT OF CARE TEST O RDERABLES ARIAN NELSON documented in this encounter Visit Diagnoses Diagnosis NSTEMI (non-ST elevated myocardial infarction)- Primary Acute myocardial infarction, subendocardial infarction, episode of care unspecified Chest pain Chest pain, unspecified Coronary artery disease Coronary atherosclerosis of unspecified type of vessel, [place] or graft ACS (acute coronary syndrome) Intermediate coronary syndrome SOB (shortness of breath) Shortness of breath NSTEMI (non-ST elevated myocardial infarction) Acute myocardial infarction, subendocardial infarction, episode of care unspecified HTN (hypertension) Unspecified essential hypertension Hyperlipidemia Other and unspecified hyperlipidemia 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 (SVG to PDA closed 08/2013) Coronary atherosclerosis of unspecified type of vessel, [place] or graft Diabetes mellitus Type II or [...] than 145 sec X 2 - call pump house engineer See Bolus dosing guidance for aPTT values [...] Routine 183 (Given - Provider: Sana Bella, RN)2021 (Given - Provider: Reny Kent RN) [...] Kent RN)1400 (Not Given - Provider: Lola Tipton, DAVID - Reason: Patient not available) 0200 (Given [...] than 145 sec X 2 - call pump house engineer See Bolus dosing guidance for aPTT values [...] Tipton RN)1050 (Rate/Dose Change - Provider: Lola Tipotn RN)1506 (Stopped - Provider: Aisha Antoine RN [...] in sodium chloride 0.9% 50 mL infusion (WAIT STAFF) (CANCELED) CONTINUOUS PRN, Starting on Wed08/21/13 at [...] PRN, Starting on Wed08/21/13 at 1347, Until 10/14/13 at 1438, Pain, Intra-Operative (Intra-Procedure), Routine 1347 [...] Routine documented in this encounter Care Teams Punch Machine Operator Relationship Specialty Start Date End Date Patric Al MD PCP - General 12/29/11 02/26/19 documented as of this encounter
--- OUTSIDE RECORDS SUMMARY | 2024-10-31 15:44 | XMS_ITS | Encounter Summary ---
Author Organization [facility] Address [facility] [place] [address] Care Team Providers Care Supervisor Metal Hanging Name Role Phone None Primary Care Provider Unavailabl e Encounter Details Date Type Department Care Team (Late st Contact Info) Description 05/28/2024 Telephone [place] [phone] Dolly Dan MD [facility] [place] [address] Social History Tobacco Use Types Packs/Day Years Used Date Smoking Tobacco: Every Day Cigarettes 1 25 Started: 12/28/1986; Last attempted to quit: 12/28/2011 Alcohol Use Standard Drinks/Week Comments No 0 (1 standard drink = 0.6 oz pur e alcohol) [facility] Utilities Answer Date Recorded In the past 12 months has e [employer] gas, oil, or water [employer] threatened to shut off services in your [...] PM EDT I received a call from [facility] regarding Lux Dixon. This is a 49-year-old [...] intact. The patient will be transferred to [facility] ED for further evaluation and determine whether his symptoms are related to vascular disease. documented in this encounter Plan of Treatment Upcoming Encounters Date Type Department Care Team (Late st Contact Info) Description 11/09/2024 1:30 PM EST Office Visit [place] [phone] Isabela Hayward APRN [facility] [place] [address] 11/10/2024 10:00 AM EST Office [place] [phone] Dai Whitman APRN 11/21/2024 2:15 PM EST Office [place] [phone] Dayanara Grover MD [facility] [place] [address] documented as of this encounter Visit Diagnoses Not on filedocumented in this encounter Care Teams Supervisor Metal Hanging Relationship Specialty Start Date End Date None None PCP - General 05/27/24 09/17/24 documented as of this encounter
--- OUTSIDE RECORDS SUMMARY | 2024-10-31 15:44 | XMS_ITS | Encounter Summary ---
Author Organization [facility] [place] [address] Care Team Providers Care Patient Financial Services Specialist Name Role Phone None Primary Care Provider Unavailabl e Encounter Details Date Type Department Care Team (Latest Contact Info) Description 05/28/2024 Travel Social History Tobacco Use Types Packs/Day Years Used Date Smoking Tobacco: Every Day Cigarettes 1 25 Started: 12/28/1986; Last attempted to quit: 12/28/2011 Alcohol Use Standard Drinks/Week Comments No 0 (1 standard drink = 0.6 oz pur e alcohol) [facility] Utilities Answer Date Recorded In the [...] any time in the past 12 m [facility], were you homeless or living in a [facility] (including now)? No 05/29/2024 IPV Inpatient Questions [...] PM EST Office [place] [phone] Isabela Hayward APRN [facility] [place] [address] 11/10/2024 10:00 AM EST Office [place] [phone] Dai Whitman APRN 11/21/2024 2:15 PM EST Office [place] [phone] Dayanara Grover MD [facility] [place] [address] documented as of this encounter Visit Diagnoses Not on filedocumented in this encounter Care Teams Patient Financial Services Specialist Relationship Specialty Start Date End Date None None PCP - General 05/27/24 09/17/24 documented as of this encounter
--- OUTSIDE RECORDS SUMMARY | 2024-10-31 15:44 | XMS_ITS | Encounter Summary ---
[place] [address] Care Team Providers Care Professor Of Environmental Studies Name Role Phone None Primary Care Provider Unavailabl e Reason for Referral * Diagnostic Test (Routine) - Authorized Specialty Diagnoses / Procedures Referred By Contac t Referred To Contact Diagnoses Limb ischemia Critical limb ischemia of left lower extremity Procedures Arterial Duplex Leg, Unil Preston Dee MD [facility] [place] [address] [facility] Vascular Lab [address] [place] [phone] Referral ID Status Reason Start Date Expiration Date Visits Requested Visits Authorized [id number] Authorized Specialty Service Requested 06/02/2024 06/02/2025 1 1 * Diagnostic Test (Routine) - Authorized Specialty Diagnoses / Procedures Referred By Contac t Referred To Contact Diagnoses Limb ischemia Procedures ELEN, legs, multiple levels Preston Dee MD [facility] [place] [address] [facility] Vascular Lab [address] [place] [phone] Referral ID Status Reason Start Date Expiration Date Visits Requested Visits Authorized [id number] Authorized Specialty Service Requested 06/02/2024 06/02/2025 1 1 Reason for Visit * Reason Comments Circulatory Problem * Auth/Cert (Routine) Specialty Diagnoses / Procedures Referred By Contac t Referred To Contact Diagnoses Limb ischemia Critical limb ischemia of left lower extremity calf pain Procedures ER IPI Jerry Marin MD [facility] [place] [address] [facility] Referral ID Status Reason Start Date Expiration Date Visits Re quested Visits Authorized [id number] 1 1 Encounter Details Date Type Department Care Team (Latest Contact Info) Description 05/28/2024 5:40 PM EDT - 06/02/2024 6:45 PM EDT Hospital Encounter Surgical Unit Level 4 [place] [address] Arthur Patel DO [facility] [place] [address] Jerry Marin MD [facility] [place] [address] Limb ischemia; Critical limb ischemia of left lower extremity Discharge Disposition: Home Social History Tobacco Use Types Packs/Day Years Used Date Smoking Tobacco: Every Day Cigarettes 1 25 Started: 12/28/1986; Last attempted to quit: 12/28/2011 Alcohol Use Standard Drinks/Week Comments No 0 (1 standard drink = 0.6 oz pur e alcohol) [facility] Utilities Answer Date Recorded In the past 12 months has e [employer], gas, oil, or water [employer] threatened to shut off services in [...] in this encounter Discharge Summaries * Preston eDe MD - 06/02/2024 5:44 AM EDT Images [...] substance use, narcolepsy/cataplexy, who initially presented to [facility] ED with c/o 3d acute onset left calf pain. CTA revealed short segment popliteal occlusion with distal reconstitution. On arrival to [facility] he is hemodynamically normal on RA. He [...] up to date on transfer documentation from [facility]. Hospital Course: Geovanna was immediately started [...] 05/30/2024 11:20 AM) Result Value WORKSTATION ID [id number] NM Pharmacologic Stress and Rest Myocardial Perfusion (Exam End: 05/30/2024 10:40 AM) Result Value WORKSTATION ID [id number] Impression 1. There is a small sized, [...] who have questions please contact the health transitions rn care coordinator that requested your imaging first. Electronically signed by: Angel Oliva MD, [facility] ([phone]), at 05/30/2024 2:[address] Lower Extremity w Contrast Left (Exam End: 05/30/2024 7:27 PM) Result Value WORKSTATION ID [id number] Impression 1. Occlusion of the popliteal artery [...] who have questions please contact the health transitions rn care coordinator that requested your imaging first. Electronically signed by: Ignacia Chi MD, [facility] ([phone]), at 05/31/2024 3:33 PM Labs: Recent Results [...] Left Result Value Ref Range WORKSTATION ID [id number] Rapid Drug Screen, Urine (IVAN Request) Result [...] Negative mcL Appearance UA Clear Clear Spec Lanse UA >=1.030 (A) 1.005 - 1.030 Color [...] Text Report Department: Vascular Surgery Lab Patient: [id number] (GEOVANNA DIXON) CPT: 93423 Referring Physician: JERRY MARIN Phone: Indications: Left [...] thrombosis. Comparison: No previous study in our wy scular lab database for comparison. Electronically Signed [...] 65 - 199 mg/dL MRSA PCR Screen ([facility]/CGP/APD/NL) Specimen: Nasopharyngeal Swab Specimen Type->Nasopharyngeal Swab Result Value Ref Range MRSA Result Negative Negative MRSA Interp Methicillin-resistant Staphylococcus aureus (MRSA) is NOT DETECTED The MRSA target DNA sequences (mec and SCC) were not detected within the acceptable ranges using the Xpert MRSA NxG on the [employer] Dx System (Cepheid). This suggests the absence of MRSA in the patient specimen submitted for testing. This test is cleared by the U.S. Food and Drug Administration for clinical use and its performance characteristics have been verified by the [facility] at [facility]. This result does not rule out the [...] Process Instructions: There is no in-house vascular lab courier available on weeknights (5pm-8am), weekends, or holidays. IF THIS IS A REQUEST FOR AN EMERGENT STUDY DURING THOSE HOURS, please have the senior provider responsible for the patient page the Vascular Surgery Fellow/Senior Resident energy conservation technician to discuss options. Scheduling Instructions: Questions: Indication for study/signs & symptoms: L poplital artery occlusion and PAD Question to be answered: Adequacy of LLE perfusion Preferred location?: [facility] Clinics Arterial Duplex Leg, Unil [VAS32 Custom] 07/03/2024 (Approximate) 01/02/2025 Process Instructions: There is no in-house vascular lab courier available on weeknights (5pm-8am), weekends, or holidays. IF THIS IS A REQUEST FOR AN EMERGENT STUDY DURING THOSE HOURS, please have the senior provider responsible for the patient page the Vascular Surgery Fellow/Senior Resident energy conservation technician to discuss options. Scheduling Instructions: Questions: Indication for study/signs & symptoms: L popliteal occlusion in setting of PAD Question to be answered: adequate arterial flow in lower leg, particularly near site of occlusion Laterality: Left Is there a LEFT LOWER EXTREMITY graft?: No Lower limb left segments: Popliteal Common Femoral Profunda Superficial Femoral Tibial Is there a stent?: No Preferred location?: [facility] Clinics Anticoagulation & Antiplatelet: Anticoagulation: Agent: Xarelto 2.5mg BID Indication: Left popliteal artery occlusion Intended Duration: Indefinitely, will discuss at follow-up appointment Antiplatelet: Agent: Aspirin 81mg Indication: CAD Intended Duration: Indefinitely For questions regarding these medications, please contact Vascular Surgery at [phone]. For issues on weeknights after 5pm and weekends please call [phone] and ask for the Vascular Fellow kuldeep. [...] For any problems or questions please call [phone] For issues on weeknights after 5pm and weekends please call [phone] and ask for the Vascular Fellow energy conservation technician. Vascular Surgery Contact Information: For any problems or questions please call [phone] For issues on weeknights after 5pm and weekends please call [phone] and ask for the Vascular Fellow energy conservation technician. documented in this encounter Discharge Instructions * [...] to have your insulin doses adjusted. [facility]/[address] [id number] [email or web address] Hours Wed through Wednesday 8:00am to 2:00 [...] For any problems or questions please call [phone] For issues on weeknights after 5pm and weekends please call [phone] and ask for the Vascular Fellow energy conservation technician. * Attachments The following attachments cannot be sent through Care Everywhere. * Direct Oral Anticoagulants: Non-Vitamin K Antagonist (Spanish) documented in this encounter Medications at Time [...] substance abuse, narcolepsy/cataplexy, who initially presented to [facility] ED with c/o 3d acute onset left calf pain. CTA revealed short segment popliteal occlusion with distal reconstitution. On arrival to [facility] he is hemodynamically normal on RA. He [...] up to date on transfer documentation from [facility]. Active Hospital Problems Diagnosis Critical limb [...] Imaging: ABIs Department: Vascular Surgery Lab Patient: [id number] (GEOVANNA DIXON) CPT: 81788 Referring Physician: JERRY MARIN Phone: Indications: PAD [...] Cards recs Preston Dee MD 06/01/2024 Pager: [phone] * Anabel Castelan MD - 06/01/2024 11:42 [...] nutritional counseling for which one of our hat binder met with him on 05/31. Glargine has [...] with Dr. Reno. Anabel Castelan MD. PGY4 [facility] Endocrinology 20 minutes of this 35 minute [...] substance abuse, narcolepsy/cataplexy, who initially presented to [facility] ED with c/o 3d acute onset [...] an evening meal which is usually takeout (knife grinder or pizza). Drinks up to 18 cans of Moun tain Dew/day or 1.5 gallons of milk daily. Bindu Ritter RD * Preston Dee MD - 05/31/2024 12:13 PM EDT Vascular Surgery Progress Note Geovanna Dixon Jr. is a 49 y.o. male with PMH of CAD s/p 2V CABG (2012), DM, HTN, HLD, obesity, substance abuse, narcolepsy/cataplexy, who initially presented to [facility] ED with c/o 3d acute onset left calf pain. CTA revealed short segment popliteal occlusion with distal reconstitution. On arrival to [facility] he is hemodynamically normal on RA. He [...] up to date on transfer documentation from [facility]. 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 No changes in level of pain since [...] Imaging: ABIs Department: Vascular Surgery Lab Patient: [id number] (GEOVANNA DIXON) CPT: 39879 Referring Physician: JERRY MARIN Phone: Indications: PAD [...] Cards recs Preston Dee MD 05/31/2024 Pager: [phone] * Flip, Anabel Wilson MD - 05/31/2024 [...] islet cell antibodies Will place consult for corrosion engineer to further discuss nutritional modifications Patient case discussed with Dr. Reno. Anabel Castelan MD PGY4 [facility] Endocrinology 20 minutes of this 35 minute [...] substance abuse, narcolepsy/cataplexy, who initially presented to [facility] ED with c/o 3d acute onset left calf pain. CTA revealed short segment popliteal occlusion with distal reconstitution. On arrival to [facility] he is hemodynamically normal on RA. He [...] up to date on transfer documentation from [facility]. Active Hospital Problems Diagnosis Critical limb [...] improved on heparin, but L medial calf beer still runner compounder - HDS, afebrile Objective: Temp: [36.3 ??C [...] Imaging: ABIs Department: Vascular Surgery Lab Patient: [id number] (GEOVANNA DIXON) CPT: 11631 Referring Physician: JERRY MARIN Phone: Indications: PAD [...] Cards recs Preston Dee MD 05/30/2024 Pager: [phone] * Vibha Benson, INSEAM TRIMMER - 05/29/2024 11:48 AM EDT Vascular Surgery Progress Note Geovanna Dixon Jr. is a 49 y.o. male with PMH of CAD s/p 2V CABG (2012), DM, HTN, HLD, obesity, substance abuse, narcolepsy/cataplexy, who initially presented to [facility] ED with c/o 3d acute onset left calf pain. CTA revealed short segment popliteal occlusion with distal reconstitution. On arrival to [facility] he is hemodynamically normal on RA. He [...] up to date on transfer documentation from [facility]. Active Hospital Problems Diagnosis Critical limb [...] Microbiology: ABIs Department: Vascular Surgery Lab Patient: [id number] (GEOVANNA DIXON) CPT: 26131 Referring Physician: JERRY MARIN Phone: Indications: PAD [...] ASA Statin Vibha Benson APRN 05/29/2024 Pager: [phone] documented in this encounter H&P Notes * Lili Tapia MD - 05/28/2024 6:33 PM EDT [facility] Department of Vascular Surgery History & Physical Patient Name: Geovanna Dixon Jr. MR#: [id number] : 1975 Admission Date: 05/28/2024 Indication for Admission: LLE ALI History of Present Illness: Geovanna Dixon Jr. is a 49 y.o. male with PMH of CAD s/p 2V CABG (2012), DM, HTN, HLD, obesity, substance abuse, narcolepsy/cataplexy, who initially presented to [facility] ED with c/o 3d acute onset left calf pain. CTA revealed short segment popliteal occlusion with distal reconstitution. On arrival to [facility] he is hemodynamically normal on RA. He [...] up to date on transfer documentation from [facility]. Past Medical History: Past Medical History: [...] at [facility] MAIN OR PRO ENDOSCOPY W/VIDEO-ASST VEIN HARVEST, CABG 01/04/2012 ENDOSCOPIC HARVEST VEIN(S) FOR CABG performed by INNA TOVAR at [facility] MAIN OR Home Medications: Current Outpatient Medications [...] substance abuse, narcolepsy/cataplexy, who initially presented to [facility] ED with c/o 3d acute onset [...] MD 05/28/2024 Vascular Surgery Service Team pager #[phone] documented in this encounter ED Notes * [...] the Emergency Department as a transfer from [facility] for left foot ischemia. CT [...] significant for: ED Course as of 05/28/241900 Elle May 28, 2024 1819 Paged vascular surgery 1820 Vascular surgery recommending heparin drip [phone] paged [phone] Surgery to see 183 WBC: 7.0 1836 RBC: 4.67 1836 Lactate WB: 1.6 1900 Glucose Lvl(!): 286 1900 Creatinine(!): 0.53 No orders to display Procedures Assessment and Plan: 49 y.o. male transferred from [facility] for popliteal artery occlusion resulting [...] my separate note. 49-year-old male transfer from [facility] for left foot ischemia with CT [...] Yes/No STROKE ALERT: Last Known Well Time: [place] Stroke Scale: + / - FAST-ED Score: TRAUMA ALERT: T9 Alert Consult Lowest Documented BP Transporting Service: Time of Departure: ETA: * María Ugalde MD - 05/28/2024 4:41 PM EDT . EM attending brief transfer acceptance note: Geovanna Viet Dixon Jr. is a 49 y.o. who I accepted in transfer from [facility] for rule out left foot [...] transfer were discussed María Ugalde MD 05/28/24 [id number] documented in this encounter Miscellaneous Notes * [...] substance abuse, narcolepsy/cataplexy, who initially presented to [facility] ED with c/o 3d acute onset [...] therapeutic upon check with AM labs, continues [id number]/30ml/hr. Pt continues on Telemetry, noted NSR every [...] pain controlled with scheduled and PRN meds, media librarian to be found in JAN. Q4 neurovascular [...] Pain controlled with scheduled and PRN meds, media librarian to be found in JAN. Patient went [...] substance abuse, narcolepsy/cataplexy, who initially presented to [facility] ED with c/o 3d acute onset [...] the original note were not included. Formerly [facility] [place] [address] [address] CARDIOLOGY CONSULT NOTE Date of Consultation: 05/29/2024 [...] substance abuse, narcolepsy/cataplexy, who initially presented to [facility] ED with c/o 3d acute onset [...] NSTEMI in 2012, at the time showed HAIRSPRING VIBRATOR of proximal LAD, HAIRSPRING VIBRATOR proximal right, 90% LCX. MARTINEZ-LAD patent and [...] substance abuse, narcolepsy/cataplexy, who initially presented to [facility] ED with c/o 3d acute onset left calf pain. CTA revealed short segment popliteal occlusion with distal reconstitution. Cardiology consulted regarding preoperative risk stratification. Vascular surgery plans for surgical revascularization. He has a notable cardiac history listed above, transthoracic echocardiogram notable for mildly reduced LVEF with inferior wall hypokinesis. Thisis explained by his known history of an occluded SVG-RPDA graft with a HAIRSPRING VIBRATOR of his right coronary artery. He has [...] substance abuse, narcolepsy/cataplexy who initially presented to [facility] ED with complaints of 3 days of acute left calf pain. CTA revealed short segment popliteal occlusion with distal reconstitution. He was transferred to [facility] on 05/28/2024 for further management. We are being consulted to assist with diabetes management for poorly controlled DM and to provide a review of shelter diabetes care. Diabetes History: Geovanna Dixon Jr. [...] sec Lactate, whole blood, send to lab ([facility]) Result Value Ref Range Lactate WB 1.6 0.5 - 2.2 mmol/L Type and screen ([facility]) Result Value Ref Range ABORH Type A [...] Value Ref Range T&S only valid at [facility] Hosp POCT Glucose Result Value Ref Range [...] with distal reconstitution on CTA. While at [facility] patient found to have blood glucose approx 490-500. He was transferred to [facility] on 05/28/2024 for further management. We are being consulted to assist with diabetes management for poorly controlled DM and to provide a review of shelter diabetes care. Diabetes is not currently well [...] diabetes education as well as nutritional counseling residential diabetes care: Medications - Outpatient treatment regimen recommendations pending based on the hospital course. Monitoring - continue BG tid ac & hs Diet - low fat/low carb diet Exercise - weight-bearing exercise 30 min/day, as tolerated Provider - patient requires establishment with new PCP or entry level sales associate for continued medication management Thank you for allowing us to provide care for your patient. Anabel Castelan MD [facility] Endocrinology Associated attestation - Karen Reno MD [...] 180 days) Any patient receiving care in [place] must abide by [place] law. The hierarchy [...] has the electric, gas, oil, or water [employer] threatened to shut off services in [...] Current DME: none Home Address confirmed as: [address] [place] [address] Social & Family Supports: All names listed [...] not?: Costs Prescription Coverage: Yes Preferred Pharmacy: [facility] - [place], [place] - [address] [facility] [address] [facility] [address] Status: Patient is a : No Primary Care Provider listed: Guanako Gusman MD (Inactive) [phone] Patient/Caregiver Goals of Treatment: How long will [...] care as indicated. DENISSE Astorga Care Management #[id number] * Plan of Care - Guanako Madison [...] Appropriate) * Consult Note - Allen Orona, [facility] - 05/29/2024 4:00 AM EDT TelePharmacy Home [...] Pharmacist at for any questions. Allen Orona RP * ED Triage - Debby Chawla RN [...] PM EST Office [place] [address] Isaebla Hayward, [facility] [place] [address] 11/10/2024 10:00 AM EST Office [place] [address] Dai Whitman APRN 11/21/2024 2:15 PM EST Office [place] [address] Dayanara Grover MD [facility] [place] [address] documented as of this encounter Procedures Procedure [...] Glucose, POC 203(H) 65 - 199 mg/dL [facility] Comment: Supplemental ranges: <140 mg/dL before meals <180 mg/dL all other times of the day Blood 06/02/2024 4:12 PM EDT 06/02/2024 4:12 PM EDT Jerry Marin MD POINT OF CARE TEST O RDERABLES [facility] [place] [address] * (ABNORMAL) POCT Glucose (06/02/2024 1:47 PM EDT) Glucose, POC 306(H) 65 - 199 mg/dL [facility] Comment: Supplemental ranges: <140 mg/dL before meals <180 mg/dL all other times of the day Blood 06/02/2024 1:47 PM EDT 06/02/2024 1:47 PM EDT Jerry Marin MD POINT OF CARE TEST O GILDA Performing Organization Address [facility] Co de Phone Number [facility] [place] [address] * (ABNORMAL) POCT Glucose (06/02/2024 11:28 AM EDT) Glucose, POC 270(H) 65 - 199 mg/dL [facility] Comment: Supplemental ranges: <140 mg/dL before meals <180 mg/dL all other times of the day Blood 06/02/2024 11:2 8 AM EDT 06/02/2024 11:28 AM EDT Jerry Marin MD POINT OF CARE TEST O GILDA Performing Organization Address [facility] de Phone Number [facility] [place] [address] * (ABNORMAL) POCT Glucose (06/02/2024 8:59 AM EDT) Glucose, POC 299(H) 65 - 199 mg/dL [facility] Comment: Supplemental ranges: <140 mg/dL before meals <180 mg/dL all other times of the day Blood 06/02/2024 8:59 AM EDT 06/02/2024 8:59 AM EDT Jerry Marin MD POINT OF CARE TEST O GILDA Performing Organization Address [facility] de Phone Number [facility] [place] [address] * (ABNORMAL) Differential, Automated (06/02/2024 1:52 AM EDT) Neutrophil % 75.2 % [facility] Neutrophil Absolute 9.62(H) 1.70 - 6.10 x10(3)/mc L [facility] Lymph % 12.7 % [facility] Lymphocytes Abs 1.6 0.9 - 3.2 x10(3)/mc L [facility] Monocyte % 7.8 % [facility] Monocyte Abs 1.0(H) 0.3 - 0.9 x10(3)/[facility] Eos % 1.1 % [facility] Eosinophils Abs 0.1 0.0 - 0.4 x10(3)/[facility] Basophil % 0.9 % [facility] Baso Absolute 0.1 0.0 - 0.1 x10(3)/[facility] Immature Gran % 2.30 % [facility] Comment: Immature granulocytes(IG's)percentage and absolute count will include metamyelocytes, myelocytes, and promyelocytes. Blood smears from CBCs yielding IG's will be scanned manually for concordance. If this scan disagrees with the automated IG or if promyelocytes are noted, a manual differential will be performed. Immature Gran Absolute 0.29(H) 0.00 - 0.04 x10(3)/[facility] Blood 06/02/2024 1:52 AM EDT 06/02/2024 2:06 AM EDT Narrative Resulting Agency Comment Spec In Lab Lili Tapia MD HEMATOLOGY ORDERA BLES [facility] [place] [address] * (ABNORMAL) Hemogram (06/02/2024 1:52 AM EDT) White Blood Cell 12.8(H) 4.0 - 9.5 x10(3)/[facility] Red Blood Cell 4.56(L) 4.58 - 5.54 x10(6)/[facility] Hemoglobin 13.7 13.7 - 16.5 g/dL [facility] Hematocrit 39.0(L) 40.5 - 48.5 % [facility] Mean Cell Volume 85.5 82.9 - 93.1 fL [facility] Mean Cell Hemoglobin 30.0 27.5 - 32.1 pg [facility] Mean Cell Hemoglobin Concentration 35.1 32.0 - 35.7 g/dL [facility] Platelet 283 145 - 357 x10(3)/mc L [facility] RDW Standard Deviation 35.7(L) 36.0 - 45.0 fL [facility] RDW coefficient of variation 11.6 11.4 - 13.8 % [facility] Mean Platelet Volume 10.2 7.6 - 12.9 fL [facility] NRBC% auto 0.0 % [facility] NRBC Absolute 0.000 0.000 - 0.000 x10(3)/mc L [facility] Blood 06/02/2024 1:52 AM EDT 06/02/2024 2:06 AM EDT Narrative Resulting Agency Comment Spec In Lab Lili Tapia MD HEMATOLOGY ORDERA BLES [facility] [place] [address] * Heparin (unfractionated) Level (06/02/2024 1:52 AM EDT) UF Heparin 0.35 IU/mL [facility] Comment: Heparin (anti-Xa) [...] DO HEMATOLOGY ORDERABLE S Performing Organization Address City/[facility]/ZIP Co de Phone Number [facility] [place] [address] * Phosphorus (06/02/2024 1:52 AM EDT) Phosphorus 3.3 2.5 - 4.5 mg/dL [facility] Blood 06/02/2024 1:52 AM EDT 06/02/2024 2:06 AM EDT Narrative Resulting Agency Comment Spec In Lab Jerry Marin MD CHEMISTRY ORDERABLES Performing Organization Address [facility] Co de Phone Number [facility] [place] [address] * Magnesium (06/02/2024 1:52 AM EDT) Magnesium 0.81 0.69 - 1.07 mmol/L [facility] Blood 06/02/2024 1:52 AM EDT 06/02/2024 2:06 AM EDT Narrative Resulting Agency Comment Spec In Lab Jerry Marin MD CHEMISTRY ORDERABLES Performing Organization Address [facility]/ZIP Co de Phone Number [facility] [place] [address] * (ABNORMAL) Basic Metabolic Panel (non-fasting) (06/02/2024 1:52 AM EDT) Glucose 165 65 - 199 mg/dL [facility] Comment:Diabetes: >=200 mg/d L plus symptoms Blood Urea Nitrogen 7(L) 10 - 20 mg/dL [facility] Creatinine 0.52(L) 0.80 - 1.50 mg/dL [facility] Sodium 137 135 - 145 mmol/L [facility] Potassium 4.0 3.5 - 5.0 mmol/L [facility] Comment: Please note: ??Patients with WBC >100,000 may have falsely elevated Potassium levels. ??For accurate Potassium quantification in these patients send serum separator tube (gold top) for subsequent determinations. ??Contact the Clinical Chemistry Laboratory if there are any questions. Chloride 102 98 - 107 mmol/L [facility] Carbon Dioxide 23 22 - 31 mmol/L [facility] Anion Gap 12 5 - 15 mmol/L [facility] Calcium 9.5 8.5 - 10.5 mg/dL [facility] Est Glomerular Filtration Rate 123 >=60 mL/min/1. 73 m?? [facility] Comment: This patient's estimated GFR [...] In Lab Jerry Marin MD CHEMISTRY ORDERABLES [facility] [place] [place] [address] * (ABNORMAL) POCT Glucose (06/01/2024 7:45 PM EDT) [facility] Signature Glucose, POC 225(H) 65 - 199 mg/dL [facility] Comment: Supplemental ranges: <140 mg/dL before meals <180 mg/dL all other times of the day Blood 06/01/2024 7:45 PM EDT 06/01/2024 7:45 PM EDT Jerry Marin MD POINT OF CARE TEST O RDERAHERNANDEZ Performing Organization Address City/[facility]/ZIP Co de Phone Number [facility] [place] [address] * POCT Glucose (06/01/2024 4:45 PM EDT) Glucose, POC 178 65 - 199 mg/dL [facility] Comment: Supplemental ranges: <140 mg/dL before meals <180 mg/dL all other times of the day Blood 06/01/2024 4:45 PM EDT 06/01/2024 4:45 PM EDT Jerry Marin MD POINT OF CARE TEST O GILDA Performing Organization Address [facility] Co de Phone Number [facility] [place] [address] * POCT Glucose (06/01/2024 2:32 PM EDT) Glucose, POC 195 65 - 199 mg/dL [facility] Comment: Supplemental ranges: <140 mg/dL before meals <180 mg/dL all other times of the day Blood 06/01/2024 2:32 PM EDT 06/01/2024 2:32 PM EDT Jerry Marin MD POINT OF CARE TEST O GILDA Performing Organization Address [facility]/ZIP Co de Phone Number [facility] [place] [address] * MRSA PCR Screen ([facility]/CGP/APD/NLH) (06/01/2024 1:42 PM EDT) [facility] MRSA PCR Negative Negative [facility] MRSA (Interp) Methicillin-resist ant Staphylococcus aureus (MRSA) is NOT DETECTED The MRSA target DNA sequences (mec and SCC) were not detected within the acceptable ranges using the Xpert MRSA NxG on the GeneXpert Dx System ([employer]). This suggests the absence of MRSA in the patient specimen submitted for testing. This test is cleared by the U.S. Food and Drug Administration for clinical use and its performance characteristics have been verified by the [facility] at [facility]. This result does not rule out the presence of any other organisms. Rare false negative results may occur if MRSA is present at low concentrations with much higher concentrations of other organisms including MRSE or S. aureus with an empty SCC cassette. [facility] Comment: [VERIFIED DATE]06.02.24 Verified By:Gloria Jonas (Electronic Signature) Nasopharyngeal Swab 06/01/20 1:42 PM EDT 06/01/2024 3:11 PM EDT Comment:Specimen Type->Nasop haryngeal Swab Narrative Resulting Agency Comment Spec In Lab Jerry Marin MD MOLECULAR ORDERABLES Performing Organization Address [facility] Co de Phone Number [facility] [place] [address] * (ABNORMAL) POCT Glucose (06/01/2024 11:49 AM EDT) Glucose, POC 264(H) 65 - 199 mg/dL [facility] Comment: Supplemental ranges: <140 mg/dL before meals <180 mg/dL all other times of the day Blood 06/01/2024 11:4 9 AM EDT 06/01/2024 11:49 AM EDT Jerry Marin MD POINT OF CARE TEST O RDERABLES Performing Organization Address [facility]/ZIP Co de Phone Number [facility] [place] [address] * (ABNORMAL) POCT Glucose (06/01/2024 8:17 AM EDT) Glucose, POC 288(H) 65 - 199 mg/dL [facility] Comment: Supplemental ranges: <140 mg/dL before meals <180 mg/dL all other times of the day Blood 06/01/2024 8:17 AM EDT 06/01/2024 8:17 AM EDT Jerry Marin MD POINT OF CARE TEST O RDERAHERNANDEZ Performing Organization Address [facility] Co de Phone Number [facility] [place] [address] * (ABNORMAL) POCT Glucose (06/01/2024 8:13 AM EDT) Glucose, POC 358(H) 65 - 199 mg/dL [facility] Comment: Supplemental ranges: <140 mg/dL before meals <180 mg/dL all other times of the day Blood 06/01/2024 8:13 AM EDT 06/01/2024 8:13 AM EDT Jerry Marin MD POINT OF CARE TEST O DIMITRIERAHERNANDEZ Performing Organization Address [facility] Co de Phone Number [facility] [place] [address] * (ABNORMAL) POCT Glucose (06/01/2024 6:43 AM EDT) Glucose, POC 296(H) 65 - 199 mg/dL [facility] Comment: Supplemental ranges: <140 mg/dL before meals <180 mg/dL all other times of the day Blood 06/01/2024 6:43 AM EDT 06/01/2024 6:43 AM EDT Jerry Marin MD POINT OF CARE TEST O RDERAHERNANDEZ Performing Organization Address [facility] Co de Phone Number [facility] [place] [address] * (ABNORMAL) Differential, Automated (06/01/2024 6:12 AM EDT) Neutrophil % 73.0 % [facility] Neutrophil Absolute 8.65(H) 1.70 - 6.10 x10(3)/mc L [facility] Lymph % 15.2 % [facility] Lymphocytes Abs 1.8 0.9 - 3.2 x10(3)/mc L [facility] Monocyte % 7.7 % [facility] Monocyte Abs 0.9 0.3 - 0.9 x10(3)/mc L [facility] Eos % 1.4 % [facility] Eosinophils Abs 0.2 0.0 - 0.4 x10(3)/ L [facility] Basophil % 1.2 % [facility] Baso Absolute 0.1 0.0 - 0.1 x10(3)/ L [facility] Immature Gran % 1.50 % [facility] Comment: Immature granulocytes(IG's)percentage and absolute count will include metamyelocytes, myelocytes, and promyelocytes. Blood smears from CBCs yielding IG's will be scanned manually for concordance. If this scan disagrees with the automated IG or if promyelocytes are noted, a manual differential will be performed. Immature Gran Absolute 0.18(H) 0.00 - 0.04 x10(3)/ L [facility] Blood 06/01/2024 6:12 AM EDT 06/01/2024 6:43 AM EDT Narrative Resulting Agency Comment Spec In Lab Lili Tapia MD HEMATOLOGY ORDERA BLES Performing Organization Address City/State/[facility] Co de Phone Number [facility] [place] [address] * (ABNORMAL) Hemogram (06/01/2024 6:12 AM EDT) White Blood Cell 11.8(H) 4.0 - 9.5 x10(3)/ L [facility] Red Blood Cell 4.66 4.58 - 5.54 x10(6)/ L [facility] Hemoglobin 14.1 13.7 - 16.5 g/dL [facility] Hematocrit 39.6(L) 40.5 - 48.5 % [facility] Mean Cell Volume 85.0 82.9 - 93.1 fL [facility] Mean Cell Hemoglobin 30.3 27.5 - 32.1 pg [facility] Mean Cell Hemoglobin Concentration 35.6 32.0 - 35.7 g/dL [facility] Platelet 264 145 - 357 x10(3)/mc L [facility] RDW Standard Deviation 35.0(L) 36.0 - 45.0 [facility] RDW coefficient of variation 11.4 11.4 - 13.8 % [facility] Mean Platelet Volume 10.8 7.6 - 12.9 fL [facility] NRBC% auto 0.0 % [facility] NRBC Absolute 0.000 0.000 - 0.000 x10(3)/mc L [facility] Blood 06/01/2024 6:12 AM EDT 06/01/2024 6:43 AM EDT Narrative Resulting Agency Comment Spec In Lab Lili Tapia MD HEMATOLOGY ORDERA BLES Performing Organization Address City/[facility]/ZIP Co de Phone Number [facility] [place] [address] * Phosphorus (06/01/2024 6:12 AM EDT) Phosphorus 3.2 2.5 - 4.5 mg/dL [facility] Blood 06/01/2024 6:12 AM EDT 06/01/2024 6:43 AM EDT Narrative Resulting Agency Comment Spec In Lab Jerry Marin MD CHEMISTRY ORDERABLES Performing Organization Address [facility] Co de Phone Number [facility] [place] [address] * Magnesium (06/01/2024 6:12 AM EDT) Magnesium 0.87 0.69 - 1.07 mmol/L [facility] Blood 06/01/2024 6:12 AM EDT 06/01/2024 6:43 AM EDT Narrative Resulting Agency Comment Spec In Lab Jerry Marin MD CHEMISTRY ORDERABLES [facility] [place] [address] * (ABNORMAL) Basic Metabolic Panel (non-fasting) (06/01/2024 6:12 AM EDT) Glucose 300(H) 65 - 199 mg/dL [facility] Comment:Diabetes: >=200 mg/d L plus symptoms Blood Urea Nitrogen 7(L) 10 - 20 mg/dL [facility] Creatinine 0.54(L) 0.80 - 1.50 mg/dL [facility] Sodium 135 135 - 145 mmol/L [facility] Potassium 4.1 3.5 - 5.0 mmol/L [facility] Comment: Please note: ??Patients with WBC >100,000 may have falsely elevated Potassium levels. ??For accurate Potassium quantification in these patients send serum separator tube (gold top) for subsequent determinations. ??Contact the Clinical Chemistry Laboratory if there are any questions. Chloride 102 98 - 107 mmol/L [facility] Carbon Dioxide 22 22 - 31 mmol/L [facility] Anion Gap 11 5 - 15 mmol/L [facility] Calcium 9.2 8.5 - 10.5 mg/dL [facility] Est Glomerular Filtration Rate 121 >=60 mL/min/1. 73 m?? [facility] Comment: This patient's estimated GFR [...] Marin MD CHEMISTRY ORDERABLES Performing Organization Address City/[facility]/ZIP Co de Phone Number [facility] [place] [address] * POCT Glucose (05/31/2024 11:26 PM EDT) Glucose, POC 168 65 - 199 mg/dL [facility] Comment: Supplemental ranges: <140 mg/dL before meals <180 mg/dL all other times of the day Blood 05/31/2024 11:2 6 PM EDT 05/31/2024 11:26 PM EDT Jerry Marin MD POINT OF CARE TEST O RDERABLES Performing Organization Address [facility] Co de Phone Number [facility] [place] [address] * (ABNORMAL) POCT Glucose (05/31/2024 8:28 PM EDT) Glucose, POC 248(H) 65 - 199 mg/dL [facility] Comment: Supplemental ranges: <140 mg/dL before meals <180 mg/dL all other times of the day Blood 05/31/2024 8:28 PM EDT 05/31/2024 8:28 PM EDT Jerry Marin MD POINT OF CARE TEST O RDERABLES Performing Organization Address [facility] Co de Phone Number [facility] [place] [address] * POCT Glucose (05/31/2024 4:31 PM EDT) Glucose, POC 187 65 - 199 mg/dL [facility] Comment: Supplemental ranges: <140 mg/dL before meals <180 mg/dL all other times of the day Blood 05/31/2024 4:31 PM EDT 05/31/2024 4:31 PM EDT Jerry Marin MD POINT OF CARE TEST O GILDA Performing Organization Address City/[facility]/ZIP Co de Phone Number [facility] [place] [address] * (ABNORMAL) POCT Glucose (05/31/2024 12:43 PM EDT) Glucose, POC 200(H) 65 - 199 mg/dL [facility] Comment: Supplemental ranges: <140 mg/dL before meals <180 mg/dL all other times of the day Blood 05/31/2024 12:4 3 PM EDT 05/31/2024 12:43 PM EDT Jerry Marin MD POINT OF CARE TEST O GILDA Performing Organization Address [facility] Co de Phone Number [facility] [place] [address] * (ABNORMAL) POCT Glucose (05/31/2024 8:19 AM EDT) Glucose, POC 232(H) 65 - 199 mg/dL [facility] Comment: Supplemental ranges: <140 mg/dL before meals <180 mg/dL all other times of the day Blood 05/31/2024 8:19 AM EDT 05/31/2024 8:19 AM EDT Jerry Marin MD POINT OF CARE TEST O GILDA Performing Organization Address City/[facility] Co de Phone Number [facility] [place] [address] * Duplex for DVT, Leg, Unilat (05/31/2024 7:35 AM EDT) VB Text Report Department: Vascular Surgery Lab Patient: [id number] (GEOVANNA DIXON) CPT: 79200 Referring Physician: JERRY MARIN ?? Phone: Indications: [...] Marin MD VASCULAR ORDERABLES Performing Organization Address City/[facility]/ZIP Co de Phone Number [facility] * (ABNORMAL) POCT Glucose (05/31/2024 6:53 AM EDT) [facility] Glucose, POC 261(H) 65 - 199 mg/dL [facility] Comment: Supplemental ranges: <140 mg/dL before meals <180 mg/dL all other times of the day Blood 05/31/2024 6:53 AM EDT 05/31/2024 6:53 AM EDT Jerry Marin MD POINT OF CARE TEST O RDERABLES Performing Organization Address City/[facility]/ZIP Co de Phone Number [facility] [place] [address] * (ABNORMAL) Differential, Automated (05/31/2024 5:26 AM EDT) Neutrophil % 75.1 % [facility] Neutrophil Absolute 9.03(H) 1.70 - 6.10 x10(3)/[facility] Lymph % 14.4 % [facility] Lymphocytes Abs 1.7 0.9 - 3.2 x10(3)/[facility] Monocyte % 6.2 % [facility] Monocyte Abs 0.8 0.3 - 0.9 x10(3)/[facility] Eos % 2.1 % [facility] Eosinophils Abs 0.2 0.0 - 0.4 x10(3)/[facility] Basophil % 1.0 % [facility] Baso Absolute 0.1 0.0 - 0.1 x10(3)/[facility] Immature Gran % 1.20 % [facility] Comment: Immature granulocytes(IG's)percentage and absolute count will include metamyelocytes, myelocytes, and promyelocytes. Blood smears from CBCs yielding IG's will be scanned manually for concordance. If this scan disagrees with the automated IG or if promyelocytes are noted, a manual differential will be performed. Immature Gran Absolute 0.14(H) 0.00 - 0.04 x10(3)/[facility] Blood 05/31/2024 5:26 AM EDT 05/31/2024 5:58 AM EDT Narrative Resulting Agency Comment Spec In Lab Lili Tapia MD HEMATOLOGY ORDERA BLES [facility] [place] [address] * (ABNORMAL) Hemogram (05/31/2024 5:26 AM EDT) White Blood Cell 12.0(H) 4.0 - 9.5 x10(3)/[facility] Red Blood Cell 4.66 4.58 - 5.54 x10(6)/[facility] Hemoglobin 13.6(L) 13.7 - 16.5 g/dL [facility] Hematocrit 39.1(L) 40.5 - 48.5 % [facility] Mean Cell Volume 83.9 82.9 - 93.1 fL [facility] Mean Cell Hemoglobin 29.2 27.5 - 32.1 pg [facility] Mean Cell Hemoglobin Concentration 34.8 32.0 - 35.7 g/dL [facility] Platelet 246 145 - 357 x10(3)/mc L [facility] RDW Standard Deviation 35.0(L) 36.0 - 45.0 fL [facility] RDW coefficient of variation 11.5 11.4 - 13.8 % [facility] Mean Platelet Volume 11.9 7.6 - 12.9 fL [facility] NRBC% auto 0.0 % [facility] NRBC Absolute 0.000 0.000 - 0.000 x10(3)/mc L [facility] Blood 05/31/2024 5:26 AM EDT 05/31/2024 5:58 AM EDT Narrative Resulting Agency Comment Spec In Lab Lili Tapia MD HEMATOLOGY ORDERA BLES [facility] [place] [address] * Heparin (unfractionated) Level (05/31/2024 5:26 AM EDT) UF Heparin 0.36 IU/mL [facility] Comment: Specimen drawn more [...] DO HEMATOLOGY ORDERABLE S Performing Organization Address City/[facility]/ZIP Co de Phone Number [facility] [place] [address] * Phosphorus (05/31/2024 5:26 AM EDT) Pathologist [facility] Phosphorus 3.1 2.5 - 4.5 mg/dL [facility] Blood 05/31/2024 5:26 AM EDT 05/31/2024 5:58 AM EDT Narrative Resulting Agency Comment Spec In Lab Jerry Marin MD CHEMISTRY ORDERABLES Performing Organization Address [facility] Co de Phone Number [facility] [place] [address] * Magnesium (05/31/2024 5:26 AM EDT) Magnesium 0.83 0.69 - 1.07 mmol/L [facility] Blood 05/31/2024 5:26 AM EDT 05/31/2024 5:58 AM EDT Narrative Resulting Agency Comment Spec In Lab Jerry Marin MD CHEMISTRY ORDERABLES Performing Organization Address [facility] Co de Phone Number [facility] [place] [address] * (ABNORMAL) Basic Metabolic Panel (non-fasting) (05/31/2024 5:26 AM EDT) Glucose 273(H) 65 - 199 mg/dL [facility] Comment:Diabetes: >=200 mg/d L plus symptoms Blood Urea Nitrogen 7(L) 10 - 20 mg/dL [facility] Creatinine 0.55(L) 0.80 - 1.50 mg/dL [facility] Sodium 133(L) 135 - 145 mmol/L [facility] Potassium 3.9 3.5 - 5.0 mmol/L [facility] Comment: Please note: ??Patients with WBC >100,000 may have falsely elevated Potassium levels. ??For accurate Potassium quantification in these patients send serum separator tube (gold top) for subsequent determinations. ??Contact the Clinical Chemistry Laboratory if there are any questions. Chloride 99 98 - 107 mmol/L [facility] Carbon Dioxide 22 22 - 31 mmol/L [facility] Anion Gap 12 5 - 15 mmol/L [facility] Calcium 9.0 8.5 - 10.5 mg/dL [facility] Est Glomerular Filtration Rate 121 >=60 mL/min/1. 73 m?? [facility] Comment: This patient's estimated GFR [...] In Lab Jerry Marin MD CHEMISTRY ORDERABLES [facility] [place] [address] * LDL Cholesterol, Direct (05/31/2024 5:26 AM EDT) LDL Cholesterol, Direct 86 mg/dL [facility] Comment: Desirable: ? <100 mg/dL Above Desirable: 100-129 mg/dL Borderline High: 130-159 mg/dL High: ?160-189 mg/dL Very High: ? >jw=134 mg/dL If not reaching LDL goals on [...] In Lab Jerry Marin MD CHEMISTRY ORDERABLES [facility] [place] [address] * HDL/Cholesterol Profile (05/31/2024 5:26 AM EDT) Cholesterol, Total 156 mg/dL [facility] Comment: Desirable: ? <200 mg/dL Borderline High: 200-239 mg/dL Higher: ?>df=200 mg/dL HDL Cholesterol 33 mg/dL [facility] Comment: Females: High Risk: <50 mg/dL Males: High Risk: <40 mg/dL Lipid Interpretation See Note [facility] Comment: It is important to [...] ACC/AHA Guidelines (most recently Johann et al. [facility] 08/11/22): For individuals with atherosclerotic cardiovascular disease (ASCVD)or LDL >zu=002 mg/dL, use a high-intensity statin (40-80 mg [...] In Lab Jerry Marin MD CHEMISTRY [place] [address] * (ABNORMAL) Rapid Drug Screen w/o Confirmation, Urine (05/31/2024 5:00 AM EDT) [facility] Barbiturates Screen, Urine None Detected None Detected [facility] Comment: The barbiturate screen detects [...] Benzodiazepines Screen, Urine None Detected None Detected [facility] Comment: The benzodiazepines screen detects [...] Cocaine Screen, Urine Presumptive Pos(A) None Detected [facility] Comment: The cocaine metabolites screen detects benzoylecgonine (Cocaine Metabolite) at concentrations >150 ng/mL. A ? Presumptive Positive? result indicates that the screening result was positive but has not yet been confirmed by a highly-specific method. As with any screen, occasional false positive results from cross-reacting substances may occur. Not for Medico-Legal Purposes. Methadone Metabolites Screen, Urine None Detected None Detected [facility] Comment: The methadone metabolite screen detects EDDP (major methadone metabolite) at concentrations >100 ng/mL. A ? Presumptive Positive? result indicates that the screening result was positive but has not yet been confirmed by a highly-specific method. As with any screen, occasional false positive results from cross-reacting substances may occur. Not for Medico-Legal Purposes. Opiate Screen, Urine None Detected None Detected [facility] Comment: The opiates screen detects [...] Cannabinoid Screen, Urine None Detected None Detected [facility] Comment: The marijuana metabolites screen detects the THC metabolite (29-kod-8-carboxy-delta 9-THC) at concentrations >20 ng/mL. A ? Presumptive Positive? result indicates that the screening result was positive but has not yet been confirmed by a highly-specific method. As with any screen, occasional false positive results from cross-reacting substances may occur. Not for Medico-Legal Purposes. Oxycodone Screen, Urine Presumptive Pos(A) None Detected [facility] Comment: The oxycodone screen detects oxycodone and oxymorphone at concentrations >100 ng/mL. A ? Presumptive Positive? result indicates that the screening result was positive but has not yet been confirmed by a highly-specific method. As with any screen, occasional false positive results from cross-reacting substances may occur. Not for Medico-Legal Purposes. Buprenorphine Screen, Urine None Detected None Detected [facility] Comment: The buprenorphine screen detects [...] characteristics of this test were determined by [facility] in accordance with CLIA requirements. This laboratory is qualified under CLIA to perform high-complexity testing. Fentanyl Screen, Urine None Detected None Detected [facility] Comment: The fentanyl screen detects [...] characteristics of this test were determined by [facility] in accordance with CLIA requirements. This laboratory is qualified under CLIA to perform high-complexity testing. Tricyclics Screen, Urine Presumptive Pos(A) None Detected [facility] Comment: The tricyclics screen detects [...] characteristics of this test were determined by [facility] in accordance with CLIA requirements. This laboratory is qualified under CLIA to perform high-complexity testing. Ethanol Screen, Urine None Detected None Detected [facility] Comment:This urine ethanol a ssay detects ethanol at concentrations >/= 100 mg/L. Amphetamines Screen, Urine None Detected None Detected [facility] Comment: The amphetamine screen detects d-amphetamine and d-methamphetamine at concentrations >300 ng/mL. A ? Presumptive Positive? result indicates that the screening result was positive but has not yet been confirmed by a highly-specific method. As with any screen, occasional false positive results from cross-reacting substances may occur. Not for Medico-Legal Purposes. Creatinine Specimen Validity Test, Urine 58 >=20 mg/dL [facility] Chromate Specimen Validity Test, Urine <2.0 <=49.9 mg/L [facility] Nitrite Specimen Validity Test, Urine <50 <=499 mg/L [facility] Oxidant Specimen Validity Test, Urine 10 <=199 mg/L [facility] pH Specimen Validity Test, Urine 6.8 3.0 - 10.9 [facility] Adulterants Screen, Urine None Detected None Detected [facility] Comment:No adulteration of t his urine sample was detected. Urine 05/31/2024 5:00 AM EDT 05/31/2024 5:31 AM EDT Narrative Resulting Agency Comment Spec In Lab Rubio Grimaldo MD CHEMISTRY ORDERABL ES [facility] [place] [place] [address] * (ABNORMAL) Urinalysis without microscopic (05/31/2024 5:00 AM EDT) Glucose, Urine Dipstick >=1000(Criti masoud) Negative mg/dL [facility] Comment: Urinalysis result NOT critical without a combination of Glucose greater than or equal to 500 mg/dL AND Ketones greater than or equal to 80 mg/dL Protein, Urine Dipstick Negative Negative mg/dL [facility] Bilirubin, Urine Dipstick Negative Negative mg/dL [facility] Comment: Clinical correlation required for positive Urine Bilirubin results as false positive may occur with some drugs and drug related products. If a false positive is suspected a serum total bilirubin should be considered if clinically indicated. Urobilinogen, Urine Dipstick Normal Normal mg/dL [facility] pH, Urn (dipstick) 7.0 5.0 - 8.0 [facility] Blood, Urine Dipstick Negative Negative mg/dL [facility] Ketone, Urine Dipstick Negative Negative mg/dL [facility] Nitrite, Urine Dipstick Negative Negative [facility] Leukocytes, Urine Dipstick Negative Negative [facility] Appearance, Urine Dipstick Clear Clear [facility] Specific Lanse Urine Automated >=1.030(A) 1.005 - 1.030 [facility] Color, Urine Dipstick Yellow Yellow [facility] Urine 05/31/2024 5:00 AM EDT 05/31/2024 5:31 AM EDT Narrative Resulting Agency Comment Spec In Lab Jerry Marin MD URINE ORDERABLES [facility] [place] [place] [address] * Rapid Drug Screen, Urine (IVAN Request) (05/31/2024 5:00 AM EDT) IVAN Conf Requested No [facility] IVAN Requested See Comment [facility] Comment:Refer to Rapid Drug Screen w/o Confirmation, Urine for results. Urine 05/31/2024 5:00 AM EDT 05/31/2024 5:31 AM EDT Narrative Resulting Agency Comment Spec In Lab Jerry Marin MD URINE ORDERABLES [facility] [place] [place] [address] * CT Lower Extremity w Contrast Left (05/30/2024 7:27 PM EDT) WORKSTATION ID [id number] [facility] RAD Anatomical Region Laterality Modality Hip, [...] who have questions please contact the health transitions rn care coordinator that requested your imaging first. ? Electronically signed by: Ignacia Chi MD, [facility] ([phone]), at 05/31/2024 3:33 PM Narrative 05/31/2024 3:33 [...] patients who have questions please contactthe health transitions rn care coordinator that requested your imaging first. Electronically signed by: Ignacia Chi MD, [facility]([phone]), at 05/31/2024 3:33 PM Jerry Marin MD IMG CT ORDERABLES * POCT Glucose (05/30/2024 5:41 PM EDT) Glucose, POC 164 65 - 199 mg/dL [facility] Comment: Supplemental ranges: <140 mg/dL before meals <180 mg/dL all other times of the day Blood 05/30/2024 5:41 PM EDT 05/30/2024 5:41 PM EDT eJrry Marin MD POINT OF CARE TEST O RDERABLES Performing Organization Address City/[facility]/ZIP Co de Phone Number [facility] [place] [address] * Phosphorus (05/30/2024 4:47 PM EDT) [facility] Phosphorus 3.8 2.5 - 4.5 mg/dL [facility] Blood 05/30/2024 4:47 PM EDT 05/30/2024 4:58 PM EDT Narrative Resulting Agency Comment Spec In Lab Jerry Marin MD CHEMISTRY ORDERABLES Performing Organization Address [facility] Co de Phone Number [facility] [place] [address] * Magnesium (05/30/2024 4:47 PM EDT) [facility] Magnesium 0.86 0.69 - 1.07 mmol/L [facility] Blood 05/30/2024 4:47 PM EDT 05/30/2024 4:58 PM EDT Narrative Resulting Agency Comment Spec In Lab Jerry Marin MD CHEMISTRY ORDERABLES Performing Organization Address [facility] Co de Phone Number [facility] [place] [place] [address] * (ABNORMAL) Basic Metabolic Panel (non-fasting) (05/30/2024 4:47 PM EDT) Glucose 192 65 - 199 mg/dL [facility] Comment:Diabetes: >=200 mg/d L plus symptoms Blood Urea Nitrogen 7(L) 10 - 20 mg/dL [facility] Creatinine 0.58(L) 0.80 - 1.50 mg/dL [facility] Sodium 134(L) 135 - 145 mmol/L [facility] Potassium 3.9 3.5 - 5.0 mmol/L [facility] Comment: Please note: ??Patients with WBC >100,000 may have falsely elevated Potassium levels. ??For accurate Potassium quantification in these patients send serum separator tube (gold top) for subsequent determinations. ??Contact the Clinical Chemistry Laboratory if there are any questions. Chloride 99 98 - 107 mmol/L [facility] Carbon Dioxide 24 22 - 31 mmol/L [facility] Anion Gap 11 5 - 15 mmol/L [facility] Calcium 9.1 8.5 - 10.5 mg/dL [facility] Est Glomerular Filtration Rate 119 >=60 mL/min/1. 73 m?? [facility] Comment: This patient's estimated GFR [...] In Lab Jerry Marin MD CHEMISTRY ORDERABLES [facility] [place] [place] [address] * (ABNORMAL) POCT Glucose (05/30/2024 12:42 PM EDT) [facility] Glucose, POC 200(H) 65 - 199 mg/dL [facility] Comment: Supplemental ranges: <140 mg/dL before meals <180 mg/dL all other times of the day Blood 05/30/2024 12:4 2 PM EDT 05/30/2024 12:42 PM EDT Jerry Marin MD POINT OF CARE TEST O RDERAHERNANDEZ [facility] [place] [place] [address] * NM Pharmacologic Stress CT Component (05/30/2024 11:20 AM EDT) WORKSTATION ID [id number] [facility] Anatomical Region Laterality Modality Nuclear Medicine Narrative [...] who have questions please contact the health transitions rn care coordinator that requested your imaging first. ? Electronically signed by: Angel Oliva MD, [facility] ([phone]), at 05/30/2024 2:34 PM Procedure Note Angel [...] patients who have questions please contactthe health transitions rn care coordinator that requested your imaging first. Electronically signed by: Angel Oliva MD, [facility]([phone]), at 05/30/2024 2:34 PM Jerry Marin MD IMG NM ORDERABLES * Nuclear Pharmacologic Stress Cardiology (05/30/2024 10:48 AM EDT) Anatomical Region Laterality Modality Other Jerry Marin MD CARDIAC SERVICES ORD ERABLES * NM Pharmacologic Stress and Rest Myocardial Perfusion (05/30/2024 10:40 AM EDT) WORKSTATION ID [id number] [facility] Anatomical Region Laterality Modality Nuclear Medicine Impressions [...] who have questions please contact the health transitions rn care coordinator that requested your imaging first. ? 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 Jerry Marin MD IMG NM ORDERABLES * (ABNORMAL) POCT Glucose (05/30/2024 7:49 AM EDT) Glucose, POC 216(H) 65 - 199 mg/dL [facility] Comment: Supplemental ranges: <140 mg/dL before meals <180 mg/dL all other times of the day Blood 05/30/2024 7:49 AM EDT 05/30/2024 7:49 AM EDT Jerry Marin MD POINT OF CARE TEST O RDERAHERNANDEZ Performing Organization Address [facility] Co de Phone Number [facility] [place] [address] * (ABNORMAL) POCT Glucose (05/30/2024 6:39 AM EDT) Glucose, POC 238(H) 65 - 199 mg/dL [facility] Comment: Supplemental ranges: <140 mg/dL before meals <180 mg/dL all other times of the day Blood 05/30/2024 6:39 AM EDT 05/30/2024 6:39 AM EDT Jerry Marin MD POINT OF CARE TEST O RDERAHERNANDEZ Performing Organization Address City/[facility]/ZIP Co de Phone Number [facility] [place] [address] * (ABNORMAL) Differential, Automated (05/30/2024 12:39 AM EDT) Neutrophil % 68.3 % [facility] Neutrophil Absolute 6.33(H) 1.70 - 6.10 x10(3)/mc L [facility] Lymph % 21.9 % [facility] Lymphocytes Abs 2.0 0.9 - 3.2 x10(3)/[facility] Monocyte % 6.1 % [facility] Monocyte Abs 0.6 0.3 - 0.9 x10(3)/[facility] Eos % 2.5 % [facility] Eosinophils Abs 0.2 0.0 - 0.4 x10(3)/[facility] Basophil % 0.8 % [facility] Baso Absolute 0.1 0.0 - 0.1 x10(3)/[facility] Immature Gran % 0.40 % [facility] Comment: Immature granulocytes(IG's)percentage and absolute count will include metamyelocytes, myelocytes, and promyelocytes. Blood smears from CBCs yielding IG's will be scanned manually for concordance. If this scan disagrees with the automated IG or if promyelocytes are noted, a manual differential will be performed. Immature Gran Absolute 0.04 0.00 - 0.04 x10(3)/[facility] Blood 05/30/2024 12:3 9 AM EDT 05/30/2024 12:54 AM EDT Narrative Resulting Agency Comment Spec In Lab Lili Tapia MD HEMATOLOGY ORDERA BLES [facility] [place] [place] [address] * (ABNORMAL) Hemogram (05/30/2024 12:39 AM EDT) White Blood Cell 9.3 4.0 - 9.5 x10(3)/[facility] Red Blood Cell 4.51(L) 4.58 - 5.54 x10(6)/[facility] Hemoglobin 13.3(L) 13.7 - 16.5 g/dL [facility] Hematocrit 38.3(L) 40.5 - 48.5 % [facility] Mean Cell Volume 84.9 82.9 - 93.1 fL [facility] Mean Cell Hemoglobin 29.5 27.5 - 32.1 pg [facility] Mean Cell Hemoglobin Concentration 34.7 32.0 - 35.7 g/dL [facility] Platelet 193 145 - 357 x10(3)/mc L [facility] RDW Standard Deviation 35.1(L) 36.0 - 45.0 [facility] RDW coefficient of variation 11.4 11.4 - 13.8 % [facility] Mean Platelet Volume 11.4 7.6 - 12.9 fL [facility] NRBC% auto 0.0 % [facility] NRBC Absolute 0.000 0.000 - 0.000 x10(3)/mc L [facility] Blood 05/30/2024 12:3 9 AM EDT 05/30/2024 12:54 AM EDT Narrative Resulting Agency Comment Spec In Lab Lili Tapia MD HEMATOLOGY [place] [address] * Phosphorus (05/30/2024 12:39 AM EDT) Phosphorus 2.9 2.5 - 4.5 mg/dL [facility] Blood 05/30/2024 12:3 9 AM EDT 05/30/2024 12:54 AM EDT Narrative Resulting Agency Comment Spec In Lab Jerry Marin MD CHEMISTRY ORDERABLES Performing Organization Address City/[facility]/ZIP Co de Phone Number [facility] [place] [address] * Magnesium (05/30/2024 12:39 AM EDT) Magnesium 0.82 0.69 - 1.07 mmol/L [facility] Blood 05/30/2024 12:3 9 AM EDT 05/30/2024 12:54 AM EDT Narrative Resulting Agency Comment Spec In Lab Jerry Marin MD CHEMISTRY ORDERABLES [facility] [place] [place] [address] * (ABNORMAL) Basic Metabolic Panel (non-fasting) (05/30/2024 12:39 AM EDT) Glucose 383(H) 65 - 199 mg/dL [facility] Comment:Diabetes: >=200 mg/d L plus symptoms Blood Urea Nitrogen 9(L) 10 - 20 mg/dL [facility] Creatinine 0.56(L) 0.80 - 1.50 mg/dL [facility] Sodium 132(L) 135 - 145 mmol/L [facility] Potassium 4.2 3.5 - 5.0 mmol/L [facility] Comment: Please note: ??Patients with WBC >100,000 may have falsely elevated Potassium levels. ??For accurate Potassium quantification in these patients send serum separator tube (gold top) for subsequent determinations. ??Contact the Clinical Chemistry Laboratory if there are any questions. Chloride 98 98 - 107 mmol/L [facility] Carbon Dioxide 22 22 - 31 mmol/L [facility] Anion Gap 12 5 - 15 mmol/L [facility] Calcium 8.7 8.5 - 10.5 mg/dL [facility] Est Glomerular Filtration Rate 120 >=60 mL/min/1. 73 m?? [facility] Comment: This patient's estimated GFR [...] Marin MD CHEMISTRY ORDERABLES Performing Organization Address City/[facility]/ZIP Co de Phone Number [facility] [place] [address] * Heparin (unfractionated) Level (05/30/2024 12:39 AM EDT) UF Heparin 0.51 IU/mL [facility] Comment: Heparin (anti-Xa) [...] DO HEMATOLOGY ORDERABLE S Performing Organization Address City/[facility]/ZIP Co de Phone Number [facility] [place] [address] * Lower extremity vein map, bilat (05/29/2024 8:01 PM EDT) VB Text Report Department: Vascular Surgery Lab Patient: [id number] (GEOVANNA DIXON) CPT: 32411 Referring Physician: JERRY MARIN ?? Phone: Indications: [...] Text Report Department: Vascular Surgery Lab Patient: [id number] (GEOVANNA DIXON) CPT: 82452 Referring Physician: JERRY MARIN ?? Phone: Indications: [...] EDT) Ia-2 Ab (MAY) 0.00 <=0.02 nmol/L [facility] Comment: ADDITIONAL INFORMATION This test was developed and its performance characteristics determined by [facility] in a manner consistent with CLIA requirements. This test has not been cleared or approved by the U.S. Food and Drug Administration. Test Performed by: [facility] - [address] [address] Sql Database Administrator: Varun Steen Ph.D.; CLIA# [id number] Blood 05/29/2024 7:55 PM EDT 05/30/2024 8:43 AM EDT Narrative Resulting Agency Comment Spec In Lab Jerry Marin MD CHEMISTRY ORDERABLES Performing Organization Address [facility] de Phone Number [facility] [place] [address] * TSH (05/29/2024 7:55 PM EDT) Thyroid Stimulating Hormone 1.03 0.27 - 4.20 mcIU/mL [facility] Comment: Reference Interval (mcIU/mL): Females: ??First Trimester: 0.23-3.88 ??Second Trimester: 0.22-3.90 ??Third Trimester: 0.44-4.66 Blood 05/29/2024 7:55 PM EDT 05/29/2024 8:00 PM EDT Narrative Resulting Agency Comment Spec In Lab Jerry Marin MD CHEMISTRY ORDERABLES Performing Organization Address [facility] de Phone Number [facility] [place] [address] * GAD65 Antibody Assay (05/29/2024 7:55 PM EDT) Gad65 Ab (MARCH) 0.00 <=0.02 nmol/L [facility] Comment: ADDITIONAL INFORMATION This test was developed and its performance characteristics determined by [facility] in a manner consistent with CLIA requirements. This test has not been cleared or approved by the U.S. Food and Drug Administration. Test Performed by: [address] [address] Sql Database Administrator: Varun Steen Ph.D.; CLIA# [id number] Blood 05/29/2024 7:55 PM EDT 05/30/2024 8:43 AM EDT Narrative Resulting Agency Comment Spec In Lab Jerry Marin MD LAB SEND OUT ORDERAB LES Performing Organization Address City/[facility]/ZIP Co de Phone Number [facility] [place] [address] * Heparin (unfractionated) Level (05/29/2024 5:35 PM EDT) Pathologist [facility] UF Heparin 0.50 IU/mL [facility] Comment: Heparin (anti-Xa) [...] DO HEMATOLOGY ORDERABLE S Performing Organization Address City/[facility]/ZIP Co de Phone Number [facility] [place] [address] * (ABNORMAL) POCT Glucose (05/29/2024 4:12 PM EDT) Glucose, POC 235(H) 65 - 199 mg/dL [facility] Comment: Supplemental ranges: <140 mg/dL before meals <180 mg/dL all other times of the day Blood 05/29/2024 4:12 PM EDT 05/29/2024 4:12 PM EDT Jerry Marin MD POINT OF CARE TEST O RDERABLES Performing Organization Address City/[facility]/ZIP Co de Phone Number [facility] [place] [address] * EKG 12 Lead (05/29/2024 2:51 PM EDT) Ventricular rate 85 BPM MUSE SYSTEM Atrial Rate 85 BPM MUSE SYSTEM P-R Interval 156 ms MUSE SYSTEM QRS Duration 114 ms MUSE SYSTEM Q-T Interval 384 ms MUSE SYSTEM QTC Calculated (Bezet) 456 ms MUSE SYSTEM Calculated P Bomoseen 16 degrees MUSE SYSTEM Calculated R Bom[place] 21 degrees MUSE SYSTEM Calculated T Bom[place]en 15 degrees MUSE SYSTEM INTERPRETATION Normal sinus rhythm Normal ECG When compared with ECG of 28-MAY-2024 19:54, Premature ventricular complexes are no longer Present Confirmed by MD Dian, Asad ([id number]) on 05/30/2024 1:27:54 PM MUSE SYSTEM 05/29/2024 2:51 PM EDT 05/30/2024 1:27 PM EDT Vibha Benson APRN ECG ORDERABLES Performing Organization Address [facility]/ZIP Co de Phone Number MUSE SYSTEM * ECHO COMPLETE W CONTRAST (05/29/2024 1:29 PM EDT) Anatomical Region Laterality Modality Cardiac Other 05/29/2024 10:3 3 AM EDT Narrative 05/29/2024 2:27 PM EDT [address] [place] [address] ? Echocardiogram Report Name: GEOVANNA DIXON JR. ? Study Date: 05/29/2024 10:33 AM ? Patient Location: [facility] 0411 A : 1975 ? Height: 178 cm ? Account: [id number] Age: 49 yrs ? Weight: 102 kg Gender: Male ?BSA: 2.2 m2 Ordering Physician: JERRY MARIN Referring Physician: KAM SKINNER Performed By: Melina Marinelli RDCS Reason For Study: Limb ischemia Exam Location: [facility]. Interpretation Summary -Left ventricular systolic function is mildly reduced. The left ventricular ejection fraction is 47% by Stacy's biplane. There is akinesis of the inferior wall. -The right ventricle is of normal size. Right ventricular systolic function is normal. -No significant valvular disease noted on this study. -Compared with the previous echo performed on 08/21/23, the ejection fraction has decreased. Procedure Complete-[id number]. An agitated saline bubble contrast study was [...] Note Deandre Jones MD - 05/29/2024 [address] [place] [address] Echocardiogram Report Name: GEOVANNA DIXON JR. Study Date: 410:33 AM Patient Location: [address] : 1975 Height: 178 cm Account: [id number] Age: 49 yrs Weight: 102 kg Gender: Male BSA: 2.2 m2 Ordering Physician: JERRY MARIN Referring Physician: KAM SKINNER Performed By: Melina Marinelil RDCS Reason For Study: Limb ischemia Exam Location: [facility]. Interpretation Summary -Left ventricular systolic function is mildly reduced. The leftventricular ejection fraction is 47% by Stacy's biplane. There is akinesis of theinferior wall. -The right ventricle is of normal size. Right ventricular systolicfunction is normal. -No significant valvular disease noted on this study. -Compared with the previous echo performed on 08/21/23, the ejectionfraction has decreased. Procedure Complete-[id number]. An agitated saline bubble contrast study was [...] Glucose, POC 249(H) 65 - 199 mg/dL [facility] Comment: Supplemental ranges: <140 mg/dL before meals <180 mg/dL all other times of the day Blood 05/29/2024 1:23 PM EDT 05/29/2024 1:23 PM EDT Jerry Marin MD POINT OF CARE TEST O RDERABLES Performing Organization Address [facility] Co de Phone Number [facility] [place] [address] * Heparin (unfractionated) Level (05/29/2024 9:52 AM EDT) UF Heparin 0.76 IU/mL [facility] Comment: Heparin (anti-Xa) [...] ORDERABLE S Performing Organization Address [facility] Co de Phone Number [facility] [place] [address] * POCT Glucose (05/29/2024 8:48 AM EDT) Glucose, POC 157 65 - 199 mg/dL [facility] Comment: Supplemental ranges: <140 mg/dL before meals <180 mg/dL all other times of the day Blood 05/29/2024 8:48 AM EDT 05/29/2024 8:48 AM EDT Jerry Marin MD POINT OF CARE TEST O RDERAHERNANDEZ Performing Organization Address [facility] Co de Phone Number [facility] [place] [address] * (ABNORMAL) POCT Glucose (05/29/2024 4:00 AM EDT) Glucose, POC 218(H) 65 - 199 mg/dL [facility] Comment: Supplemental ranges: <140 mg/dL before meals <180 mg/dL all other times of the day Blood 05/29/2024 4:00 AM EDT 05/29/2024 4:00 AM EDT Jerry Marin MD POINT OF CARE TEST O GILDA Performing Organization Address [facility] de Phone Number [facility] [place] [address] * (ABNORMAL) POCT Glucose (05/29/2024 2:47 AM EDT) Glucose, POC 214(H) 65 - 199 mg/dL [facility] Comment: Supplemental ranges: <140 mg/dL before meals <180 mg/dL all other times of the day Blood 05/29/2024 2:47 AM EDT 05/29/2024 2:47 AM EDT Jerry Marin MD POINT OF CARE TEST O GILDA Performing Organization Address [facility] Co de Phone Number [facility] [place] [address] * (ABNORMAL) Hemoglobin A1c (05/29/2024 2:13 AM EDT) Hemoglobin A1c 12.6(H) 4.3 - 5.6 % [facility] Comment: Reference Range: 4.3 - [...] Mellitus, Diabetes Care 2013; 36: Suppl. 1, T58-93 Estimated Average Glucose 316 mg/dL [facility] Blood 05/29/2024 2:13 AM EDT 05/29/2024 8:03 AM EDT Narrative Resulting Agency Comment Spec In Lab Jerry Marin MD CHEMISTRY ORDERABLES [facility] [place] [place] [address] * (ABNORMAL) Differential, Automated (05/29/2024 2:13 AM EDT) Neutrophil % 54.8 % [facility] Neutrophil Absolute 5.63 1.70 - 6.10 x10(3)/mc L [facility] Lymph % 34.0 % [facility] LABORATORY Lymphocytes Abs 3.5(H) 0.9 - 3.2 x10(3)/mc L [facility] Monocyte % 6.7 % [facility] Monocyte Abs 0.7 0.3 - 0.9 x10(3)/mc L [facility] Eos % 3.3 % [facility] Eosinophils Abs 0.3 0.0 - 0.4 x10(3)/mc L [facility] Basophil % 0.9 % [facility] Baso Absolute 0.1 0.0 - 0.1 x10(3)/mc L [facility] Immature Gran % 0.30 % [facility] Comment: Immature granulocytes(IG's)percentage and absolute count will include metamyelocytes, myelocytes, and promyelocytes. Blood smears from CBCs yielding IG's will be scanned manually for concordance. If this scan disagrees with the automated IG or if promyelocytes are noted, a manual differential will be performed. Immature Gran Absolute 0.03 0.00 - 0.04 x10(3)/ L [facility] Blood 05/29/2024 2:13 AM EDT 05/29/2024 2:27 AM EDT Narrative Resulting Agency Comment Spec In Lab Lili Tapia MD HEMATOLOGY ORDERA BLES [facility] [place] [place] [address] * (ABNORMAL) Hemogram (05/29/2024 2:13 AM EDT) White Blood Cell 10.3(H) 4.0 - 9.5 x10(3)/[facility] Red Blood Cell 4.74 4.58 - 5.54 x10(6)/[facility] Hemoglobin 14.2 13.7 - 16.5 g/dL [facility] Hematocrit 40.4(L) 40.5 - 48.5 % [facility] Mean Cell Volume 85.2 82.9 - 93.1 fL [facility] Mean Cell Hemoglobin 30.0 27.5 - 32.1 pg [facility] Mean Cell Hemoglobin Concentration 35.1 32.0 - 35.7 g/dL [facility] Platelet 158 145 - 357 x10(3)/[facility] RDW Standard Deviation 35.4(L) 36.0 - 45.0 [facility] RDW coefficient of variation 11.4 11.4 - 13.8 % [facility] Mean Platelet Volume 10.6 7.6 - 12.9 fL [facility] NRBC% auto 0.0 % [facility] NRBC Absolute 0.000 0.000 - 0.000 x10(3)/ L [facility] Blood 05/29/2024 2:13 AM EDT 05/29/2024 2:27 AM EDT Narrative Resulting Agency Comment Spec In Lab Lili Tapia MD HEMATOLOGY ORDERA BLES Performing Organization Address City/[facility]/ZIP Co de Phone Number [facility] [place] [place] [address] * (ABNORMAL) Heparin (unfractionated) Level (05/29/2024 2:13 AM EDT) UF Heparin 1.19(Crit ical) IU/mL [facility] Comment: Critical Result called by [...] DO HEMATOLOGY ORDERABLE S Performing Organization Address City/[facility]/ZIP Co de Phone Number [facility] [place] [place] [address] * Phosphorus (05/29/2024 2:13 AM EDT) Phosphorus 2.5 2.5 - 4.5 mg/dL [facility] Blood 05/29/2024 2:13 AM EDT 05/29/2024 2:27 AM EDT Narrative Resulting Agency Comment Spec In Lab Jerry Marin MD CHEMISTRY ORDERABLES Performing Organization Address City/[facility]/ZIP Co de Phone Number [facility] [place] [address] * Magnesium (05/29/2024 2:13 AM EDT) Magnesium 0.77 0.69 - 1.07 mmol/L [facility] Blood 05/29/2024 2:13 AM EDT 05/29/2024 2:27 AM EDT Narrative Resulting Agency Comment Spec In Lab Jerry Marin MD CHEMISTRY ORDERABLES Performing Organization Address [facility] Co de Phone Number [facility] [place] [address] * (ABNORMAL) Basic Metabolic Panel (non-fasting) (05/29/2024 2:13 AM EDT) Glucose 251(H) 65 - 199 mg/dL [facility] Comment:Diabetes: >=200 mg/d L plus symptoms Blood Urea Nitrogen 11 10 - 20 mg/dL [facility] Creatinine 0.52(L) 0.80 - 1.50 mg/dL [facility] Sodium 138 135 - 145 mmol/L [facility] Potassium 3.3(L) 3.5 - 5.0 mmol/L [facility] Comment: Please note: ??Patients with WBC >100,000 may have falsely elevated Potassium levels. ??For accurate Potassium quantification in these patients send serum separator tube (gold top) for subsequent determinations. ??Contact the Clinical Chemistry Laboratory if there are any questions. Chloride 102 98 - 107 mmol/L [facility] Carbon Dioxide 25 22 - 31 mmol/L [facility] Anion Gap 11 5 - 15 mmol/L [facility] Calcium 9.0 8.5 - 10.5 mg/dL [facility] Est Glomerular Filtration Rate 123 >=60 mL/min/1. 73 m?? [facility] Comment: This patient's estimated GFR [...] Marin MD CHEMISTRY ORDERABLES Performing Organization Address [facility] Co de Phone Number [facility] [place] [place] [address] * (ABNORMAL) POCT Glucose (05/29/2024 12:25 AM EDT) Pathologist [facility] Glucose, POC 253(H) 65 - 199 mg/dL [facility] Comment: Supplemental ranges: <140 mg/dL before meals <180 mg/dL all other times of the day Blood 05/29/2024 12:2 5 AM EDT 05/29/2024 12:25 AM EDT Jerry Marin MD POINT OF CARE TEST O RDERABLES Performing Organization Address [facility] Co de Phone Number [facility] [place] [address] * EKG 12 Lead (05/28/2024 7:54 PM EDT) Ventricular rate 78 BPM MUSE SYSTEM Atrial Rate 78 BPM MUSE SYSTEM P-R Interval 156 ms MUSE SYSTEM QRS Duration 110 ms MUSE SYSTEM Q-T Interval 408 ms MUSE SYSTEM QTC Calculated (Bezet) 465 ms MUSE SYSTEM Calculated R Bomoseen 6 degrees MUSE SYSTEM Calculated T Bomoseen 8 degrees MUSE SYSTEM INTERPRETATION Sinus rhythm [...] 6:20 PM EDT) T&S only valid at [facility] LABORATORY Comment:This Type and Screen result is only valid at the [facility] Blood 05/28/2024 6:20 PM EDT 05/28/2024 6:24 PM EDT Narrative Resulting Agency Comment Spec In Lab María Ugalde MD BLOOD BANK LAB ORDER RANDELL Performing Organization Address City/[facility]/ZIP Co de Phone Number [facility] [place] [address] * ABORH Recheck Status (05/28/2024 6:20 PM EDT) ABORH Type Recheck Completed [facility] Blood 05/28/2024 6:20 PM EDT 05/28/2024 6:24 PM EDT Narrative Resulting Agency Comment Spec In Lab María Ugalde MD BLOOD BANK LAB ORDER RANDELL Performing Organization Address City/[facility]/ZIP Co de Phone Number [facility] [place] [address] * Gold Tube HOLD (05/28/2024 6:20 PM EDT) Gold Hold Sample in lab. [facility] Blood Venous Draw / Unknown 05/28/2024 6:20 PM EDT 05/28/2024 6:25 PM EDT Juan Santana MD CHEMISTRY ORDERABLES Performing Organization Address City/[facility]/ZIP Co de Phone Number [facility] [place] [place] [address] * Differential, Automated (05/28/2024 6:20 PM EDT) [facility] Neutrophil % 56.3 % [facility] Neutrophil Absolute 3.94 1.70 - 6.10 x10(3)/[facility] LABORATORY Lymph % 32.7 % [facility] Lymphocytes Abs 2.3 0.9 - 3.2 x10(3)/[facility] LABORATORY Monocyte % 6.7 % [facility] Monocyte Abs 0.5 0.3 - 0.9 x10(3)/[facility] LABORATORY Eos % 3.0 % [facility] Eosinophils Abs 0.2 0.0 - 0.4 x10(3)/[facility] LABORATORY Basophil % 1.0 % [facility] Baso Absolute 0.1 0.0 - 0.1 x10(3)/[facility] LABORATORY Immature Gran % 0.30 % [facility] Comment: Immature granulocytes(IG's)percentage and absolute count will include metamyelocytes, myelocytes, and promyelocytes. Blood smears from CBCs yielding IG's will be scanned manually for concordance. If this scan disagrees with the automated IG or if promyelocytes are noted, a manual differential will be performed. Immature Gran Absolute 0.02 0.00 - 0.04 x10(3)/[facility] LABORAT[facility] Blood 05/28/2024 6:20 PM EDT 05/28/2024 6:24 PM EDT Narrative Resulting Agency Comment Spec In Lab Juan Santana MD HEMATOLOGY ORDERABLE S [facility] [place] [place] [address] * (ABNORMAL) Hemogram (05/28/2024 6:20 PM EDT) [facility] White Blood Cell 7.0 4.0 - 9.5 x10(3)/mc L [facility] Red Blood Cell 4.67 4.58 - 5.54 x10(6)/mc L [facility] Hemoglobin 14.1 13.7 - 16.5 g/dL [facility] Hematocrit 39.7(L) 40.5 - 48.5 % [facility] Mean Cell Volume 85.0 82.9 - 93.1 fL [facility] Mean Cell Hemoglobin 30.2 27.5 - 32.1 pg [facility] Mean Cell Hemoglobin Concentration 35.5 32.0 - 35.7 g/dL [facility] Platelet 162 145 - 357 x10(3)/ L [facility] RDW Standard Deviation 35.3(L) 36.0 - 45.0 fL [facility] RDW coefficient of variation 11.5 11.4 - 13.8 % [facility] Mean Platelet Volume 10.8 7.6 - 12.9 fL [facility] NRBC% auto 0.0 % [facility] NRBC Absolute 0.000 0.000 - 0.000 x10(3)/ L [facility] Blood 05/28/2024 6:20 PM EDT 05/28/2024 6:24 PM EDT Narrative Resulting Agency Comment Spec In Lab Juan Santana MD HEMATOLOGY ORDERABLE S [facility] [place] [place] [address] * Type and screen ([facility]/BABITA) (05/28/2024 6:20 PM EDT) Pathologist [facility] ABORH Type A POSITIVE [facility] Patient BB History Found [facility] Expires at [id number] on: 05-31-2024 [facility] Ab Screen Interp Negative [facility] Blood 05/28/2024 6:20 PM EDT 05/28/2024 6:20 PM EDT Narrative [facility] - 05/28/2024 6:20 PM EDT This Type and Screen result is only valid at the [facility] Resulting Agency Comment Spec In Lab María Ugalde MD BLOOD BANK LAB ORDER RANDELL [facility] [place] [place] [address] * Lactate, whole blood, send to lab ([facility]) (05/28/2024 6:20 PM EDT) Lactate WB 1.6 0.5 - 2.2 mmol/L [facility] Blood 05/28/2024 6:20 PM EDT 05/28/2024 6:23 PM EDT Narrative Resulting Agency Comment Spec In Lab Arthur Patel DO CHEMISTRY ORDERABLES Performing Organization Address City/[facility]/ZIP Co de Phone Number [facility] [place] [place] [address] * APTT (05/28/2024 6:20 PM EDT) Partial Thromboplastin Time 26 25 - 37 sec [facility] Comment: The PTT is NOT appropriate for heparin monitoring. Use the Anti-Xa level for heparin monitoring (HEP UFH) or LMWH monitoring (HEP LMW). A PTT less than 37 seconds generally indicates adequate hemostasis. Blood 05/28/2024 6:20 PM EDT 05/28/2024 6:24 PM EDT Narrative Resulting Agency Comment Spec In Lab Arthur Patel DO HEMATOLOGY ORDERABLE S [facility] [place] [place] [address] * Prothrombin Time (05/28/2024 6:20 PM EDT) Prothrombin Time 10.6 9.4 - 12.5 sec [facility] International Normalization Ratio 0.9 [facility] Comment: An INR <2.0 indicates [...] Lab Arthur Patel DO HEMATOLOGY ORDERABLE S [facility] [place] [place] [address] * (ABNORMAL) Basic Metabolic Panel (non-fasting) (05/28/2024 6:20 PM EDT) Glucose 286(H) 65 - 199 mg/dL [facility] Comment:Diabetes: >=200 mg/d L plus symptoms Blood Urea Nitrogen 9(L) 10 - 20 mg/dL [facility] Creatinine 0.53(L) 0.80 - 1.50 mg/dL [facility] Sodium 135 135 - 145 mmol/L [facility] Potassium 3.9 3.5 - 5.0 mmol/L [facility] Comment: Please note: ??Patients with WBC >100,000 may have falsely elevated Potassium levels. ??For accurate Potassium quantification in these patients send serum separator tube (gold top) for subsequent determinations. ??Contact the Clinical Chemistry Laboratory if there are any questions. Chloride 99 98 - 107 mmol/L [facility] Carbon Dioxide 25 22 - 31 mmol/L [facility] Anion Gap 11 5 - 15 mmol/L [facility] Calcium 9.2 8.5 - 10.5 mg/dL [facility] Est Glomerular Filtration Rate 122 >=60 mL/min/1. 73 m?? [facility] Comment: This patient's estimated GFR [...] In Lab Arthur Patel DO CHEMISTRY ORDERABLES [facility] [place] [place] [address] * (ABNORMAL) POCT Glucose (05/28/2024 5:46 PM EDT) Glucose, POC 262(H) 65 - 199 mg/dL [facility] Comment: Supplemental ranges: <140 mg/dL before meals <180 mg/dL all other times of the day Blood 05/28/2024 5:46 PM EDT 05/28/2024 5:46 PM EDT Emergency Dept POINT OF CARE TEST ORDERABLES [facility] [place] [place] [address] documented in this encounter Visit Diagnoses Diagnosis [...] on Wed05/28/24 at 1951, Until Wed06/02/24 at 204, Pain, For pain not well controlled at [...] MEALS, First dose (after last modification) on Angelita 06/01/24 at 1215, Until Discontinued, 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 Give [...] Angelita 06/01/24 at 1123, Until Wed06/02/24 at 2045, with [...] Anuj Liu RN)2350 (Given - Provider: Lizett Simmons, DAVID) 0538 (Given - Provider: Lizett Simmons, DAVID)1143 (Given - Provider: Anuj Liu RN)1745 (Given - Provider: Anuj Liu RN) aspirin EC tablet 81 mg 81 mg, Oral, DAILY, First dose on 05/28/24 at 2002, Until Discontinued, Routine 08 (Given - Provider: Anuj Liu RN) 0812 [...] RN) 08 (Given - Provider: Venus Issa, RN) 0839 (Given - Provider: Anuj Liu [...] 08 (Given - Provider: Anuj Liu RN) 0825 [...] - Reason: See comment - Comment: No WAREHOUSE PICKER on the unit, due to short staffing, [...] (Patch Applied - Provider: Anuj Liu RN) 08 (Patch Removed - Provider: Venus Issa RN)0814 [...] (dose and location) verified - Provider: Venus Isas RN)2100 (Patch (dose and location) verified - [...] his currently ordered PRN oxycodone. , Routine 08 (Given - Provider: Anuj Liu RN) pantoprazole [...] RN) 08 (Given - Provider: Venus Issa, DAVID)2020 [...] Buccal, EVERY 15 MIN PRN, Starting on 05/29/24 at 1514, Until Wed06/02/24 at 2044, Low [...] Liu, RN)1640 (Given - Provider: Anuj Liu, RN)2020 (Given - Provider: Lizett Simmons, DAVID) 0232 (Given - Provider: Lizett Simmons, DAVID)0840 (Given - Provider: Anuj Liu, RN)1342 (Given - Provider: Anuj Liu, RN) sodium chloride 0.9 % (flush) (BD [...] Buccal, EVERY 15 MIN PRN, Starting on 05/29/24 [...] Routine documented in this encounter Care Teams Professor Of Environmental Studies Relationship Specialty Start Date End Date None None PCP - General 05/27/24 09/17/24 documented as of this encounter
--- OUTSIDE RECORDS SUMMARY | 2024-10-31 15:44 | XMS_ITS | Encounter Summary ---
Author Organization [facility] Address [facility] [place] [address] Care Team Providers Care Rib Cloth Knitter Name Role Phone None Primary Care Provider Unavailabl e Encounter Details Date Type Department Care Team (Late st Contact Info) Description 05/28/2024 11:55 AM EDT Ancillary Procedure Radiology Library at [facility] [place] [address] Jerry Marin MD [facility] [place] [address] Social History Tobacco Use Types Packs/Day Years Used Date Smoking Tobacco: Every Day Cigarettes 1 25 Started: 12/28/1986; Last attempted to quit: 12/28/2011 Alcohol Use Standard Drinks/Week Comments No 0 (1 standard drink = 0.6 oz pur e alcohol) [facility] Utilities Answer Date Recorded In the past 12 months has e [employer], gas, oil, or water [employer] threatened to shut off services in your [...] in a alf (including now)? No 05/29/2024 IPV Inpatient Questions [...] PM EST Office [place] [phone] Isabela Hayward APRN [facility] [place] [address] 11/10/2024 10:00 AM EST Office [place] [phone] Dai Whitman APRN 11/21/2024 2:15 PM EST Office [place] [phone] Dayanara Grover MD [facility] [place] [address] documented as of this encounter Procedures Procedure [...] FILM LIBRARY ORD ERABLES Performing Organization Address City/State/[facility] Co de Phone Number [place], [place] documented in this encounter Visit Diagnoses Not on filedocumented in this encounter Care Teams Rib Cloth Knitter Relationship Specialty Start Date End Date None None PCP - General 05/27/24 09/17/24 documented as of this encounter
--- OUTSIDE RECORDS SUMMARY | 2024-10-31 15:45 | XMS_ITS | Encounter Summary ---
Author Organization [facility] Address [facility] [place] [address] Care Team Providers Care Peanut Sorter Name Role Phone Guanako Gusman MD Primary Care Provider [phone] Reason for Visit * Reason Onset Date Comments Follow-up 01/18/2012 Called patient t o follow up on smoking cessation counseling done while he was inpatient. Encounter Details Date Type Department Care Team (Late st Contact Info) Description 01/18/2012 Telephone [place] [address] Vibha Martines APRN Follow-up (Called patient to follow up on [...] He wanted to continue to go [place]. We agreed that I would call him [...] PM EST Office Visit Infectious Disease at [place] [phone] Isabela Hayward APRN [facility] [place] [address] 11/10/2024 10:00 AM EST Office Visit [place] [address] Dai Whitman APRN 11/21/2024 2:15 PM EST Office Visit Endocrinology at [place] [phone] Dayanara Grover MD [facility] [place] [address] documented as of this encounter Visit Diagnoses Not on filedocumented in this encounter Care Teams Peanut Sorter Relationship Specialty Start Date End Date Guanako Gusman MD PCP - General 12/29/11 02/26/19 documented as of this encounter
--- OUTSIDE RECORDS SUMMARY | 2024-10-31 15:45 | XMS_ITS | Encounter Summary ---
Author Organization [facility] [place] [address] Care Team Providers Care Accounting System Expert Name Role Phone Guanako Gusman MD Primary Care Provider [phone] Reason for Visit * Reason Comments Follow Up Surgery Encounter Details Date Type Department Care Team (Late st Contact Info) Description 03/08/2012 10:00 AM EDT Office Visit [place] [address] Inna Tovra MD S/P CABG (coronary artery bypass graft) (Primary [...] FOR CABG performed by INNA TOVAR at [facility] MAIN OR ??? Cabg, artery-vein, single 01/04/2012 @CABG, VENOUS & ARTERIAL GRAFT;SINGLE VEIN GRAFT performed by INNA TOVAR at [facility] MAIN OR Outpatient prescriptions marked [...] PM EST Office [place] [phone] Isabela Hayward, [employer] [facility] [place] [address] 11/10/2024 10:00 AM EST Office [place] [phone] Dai Whitman APRN 11/21/2024 2:15 PM EST Office [place] [phone] Dyaanara Grover MD [facility] [place] [address] documented as of this encounter Visit Diagnoses Diagnosis S/P CABG (coronary artery bypass graft)- Primary Postsurgical aortocoronary bypass status documented in this encounter Care Teams Accounting System Expert Relationship Specialty Start Date End Date Guanako Gusman MD PCP - General 12/29/11 02/26/19 documented as of this encounter
--- OUTSIDE RECORDS SUMMARY | 2024-10-31 15:45 | XMS_ITS | Encounter Summary ---
Author Organization [facility] Address [facility] [place] [address] Care Team Providers Care Bridge Operator Name Role Phone Guanako Gusman MD Primary Care Provider [phone] Encounter Details Date Type Department Care Team (Late st Contact Info) Description 02/09/2012 10:27 AM EDT - 02/09/2012 11:59 PM EDT Hospital Encounter XRay at [address] [place] [address] Chest pain Social History Tobacco Use Types [...] PM EST Office [place] [address] Isabela Hayward APRN [facility] [address] 11/10/2024 10:00 AM EST Office Visit [place] [address] Dai Whitman APRN 11/21/2024 2:15 PM EST Office [place] [address] Dayanara Grover MD [facility] [place] [address] documented as of this encounter Procedures Procedure [...] unspecified documented in this encounter Care Teams Bridge Operator Relationship Specialty Start Date End Date Guanako Gusman MD PCP - General 12/29/11 02/26/19 documented as of this encounter
--- OUTSIDE RECORDS SUMMARY | 2024-10-31 15:45 | XMS_ITS | Encounter Summary ---
Author Organization [facility] [place] [address] Care Team Providers Care Business Office Coordinator Name Role Phone Guanako Gusman MD Primary Care Provider [phone] Encounter Details Date Type Department Care Team (Late st Contact Info) Description 08/20/2013 Telephone Cardiology at [address] [phone] Luz Horvath MD Social History Tobacco Use Types Packs/Day Years [...] Transfer call from Dr. Akanksha Torres at [facility]. 38 yo s/p recent CABG 12/20 (MARTINEZ-> [...] Office [place] [address] Isabela Hayward, RESH[facility] [place] [address] 11/10/2024 10:00 AM EST Office [place] [address] Dai Whitman APRN 11/21/2024 2:15 PM EST Office [place] [address] Dayanara Grover MD [facility] [place] [address] documented as of this encounter Visit Diagnoses Not on filedocumented in this encounter Care Teams Business Office Coordinator Relationship Specialty Start Date End Date Guanako Gusman MD PCP - General 12/29/11 02/26/19 documented as of this encounter
--- OUTSIDE RECORDS SUMMARY | 2024-10-31 15:45 | XMS_ITS | Encounter Summary ---
Author Organization [facility] [place] [address] Care Team Providers Care Photographic Spotter Name Role Phone Guanako Gusman MD Primary Care Provider Reason for Visit * Reason Comments Follow Up Surgery Encounter Details Date Type Department Care Team (Late st Contact Info) Description 02/09/2012 11:00 AM EDT Office Visit [place] [address] Inna Tovar MD Chest pain; S/P CABG (coronary artery bypass [...] FOR CABG performed by INNA TOVAR at [facility] MAIN OR ??? Cabg, artery-vein, single 01/04/2012 @CABG, VENOUS & ARTERIAL GRAFT;SINGLE VEIN GRAFT performed by INNA TOVAR at [facility] MAIN OR Outpatient prescriptions marked as [...] PM EST Office [place] [address] Isabela Hayward APRN [facility] [place] [address] 11/10/2024 10:00 AM EST Office [place] [phone] Dai Whitman APRN 11/21/2024 2:15 PM EST Office [place] [phone] Dayanara Grover MD [facility] [place] [address] documented as of this encounter Procedures Procedure [...] (Bezet) 453 ms MUSE SYSTEM Calculated P [place] 41 degrees MUSE SYSTEM Calculated R [place] 25 degrees MUSE SYSTEM Calculated T [place] 74 degrees MUSE SYSTEM INTERPRETATION Sinus tachycardia [...] status documented in this encounter Care Teams Photographic Spotter Relationship Specialty Start Date End Date Guanako Gusman MD PCP - General 12/29/11 02/26/19 documented as of this encounter
--- OUTSIDE RECORDS SUMMARY | 2024-10-31 15:45 | XMS_ITS | Encounter Summary ---
Author Organization [facility] [place] [address] Care Team Providers Care Gas Appliance Installer Name Role Phone Guanako Gusman MD Primary Care Provider [phone] Reason for Visit * Reason Onset Date Comments Sweats 01/16/2012 Encounter Details Date Type Department Care Team (Late st Contact Info) Description 01/16/2012 Telephone Cardiology at [address] [phone] Maninder Brennan MD [place] Social History Tobacco Use Types Packs/Day Years [...] HTN, hyperlipidemia, smoking, and narcolepsy calls the [facility] stating that he has [...] PM EST Office [place] [address] Isabela Hayward, ROSS FURNACE OPERATOR [facility] [place] [address] 11/10/2024 10:00 AM EST Office [place] [phone] Dai Whitman, RESHMA 11/21/2024 2:15 PM EST Office [place] [address] Dayanara Grover MD [facility] [place] [address] documented as of this encounter Visit Diagnoses Not on filedocumented in this encounter Care Teams Gas Appliance Installer Relationship Specialty Start Date End Date Guanako Gusman MD PCP - General 12/29/11 02/26/19 documented as of this encounter
--- OUTSIDE RECORDS SUMMARY | 2024-10-31 15:45 | XMS_ITS | Encounter Summary ---
Author Organization [facility] [place] [address] Care Team Providers Care Loader Technician Name Role Phone Patric Al MD Primary Care Provider [phone] Reason for Visit * Reason Onset Date Comments Medication Refill 01/11/2012 Encounter Details Date Type Department Care Team (Late st Contact Info) Description 01/11/2012 [place] [address] Zak Yoo III, PA Social History Tobacco Use Types Packs/Day Years [...] - 01/11/2012 4:59 PM EST TELEPHONE NOTE [id number] [id number] y.o. Date of call: 01/11/2012CABG X [...] Jr. Home Medication Instructions CRAIG: Printed on:01/11/12 1074 Medication Information HYDROmorphone (DILAUDID) 4 mg tablet [...] updated today. Signed: ZAK YOO III, PA-C [facility] Section of Cardiothoracic Surgery Date: 01/11/12 PATRIC AL MD documented in this encounter Plan of Treatment Upcoming Encounters Date Type Department Care Team (Late st Contact Info) Description 11/09/2024 1:30 PM EST Office Visit Infectious Disease at [address] Isabela Hayward, MANAGER [employer] [facility] [place] [address] 11/10/2024 10:00 AM EST Office Visit Vascular Surgery at [place] [phone] Dai Whitman, MANAGER [employer] 11/21/2024 2:15 PM EST Office Visit Endocrinology at [place] [phone] Dayanara Grover MD [facility] [address] documented as of this encounter Visit Diagnoses Not on filedocumented in this encounter Care Teams Loader Technician Relationship Specialty Start Date End Date Patric Al MD PCP - General 12/29/11 02/26/19 documented as of this encounter
--- OUTSIDE RECORDS SUMMARY | 2024-10-31 15:45 | XMS_ITS | Encounter Summary ---
Author Organization [facility] Address [facility] [place] [address] Care Team Providers Care Estimator Name Role Phone Patric Al MD Primary Care Provider [phone] Encounter Details Date Type Department Care Team (Late st Contact Info) Description 08/21/2013 11:35 AM EDT - 08/21/2013 12:35 PM EDT [place] [address] Sarthak Kahn MD [facility] [place] [address] CARDIAC CATHETERIZATION Social History Tobacco Use Types [...] appointments: -During 8am-5pm Wednesday through Wednesday call [phone] to speak with a nurse in the cardiology clinic -All other times call [phone] and ask to speak to the language pathologist writer technical publications. Return to work/ usual actvities: 1 week, as tolerated. No squatting or lifting more than 10 pounds until then. Driving: No driving for 48 hours after catheterization. Follow up Appointments: PCP: PATRIC AL MD at [phone] to see you on WednesdayAugust 28 at 10:50 am. [employer], Dr. Oseguera, to see you on 09/20/14 at noon. Please call [phone] with questions. Diabetes medication instructions You should [...] juice or regular (not diet) soda 6 lifesxMatterss small box of raisins 4 glucose tablets [...] * CHEST PAIN (ANGINA): AFTER YOUR VISIT ([place] CITIZ[place]) * CORONARY ARTERY DISEASE: AFTER YOUR VISIT ([place] CIT[place]) * DIABETES DIET GUIDELINES: AFTER YOUR VISIT ([place] CITIZ[place]) * HEART ATTACK: AFTER YOUR VISIT ([place] CIT[place]) * HEMOGLOBIN A1C: ABOUT THIS TEST ([place] CITIZ[place]) * HOME BLOOD GLUCOSE TEST: ABOUT THIS TEST ([place] CITIZ[place]) * CARDIAC CATHETERIZATION: AFTER YOUR VISIT ([place] CITIZ[place]) documented in this encounter Medications at Time [...] Patient is a 38 y/o man from [place], [place]. He is disabled and on Social [...] Office of Care Management (OCM) / Clinical Emts (CRC)/ Initial Assessment Discussed patient with Provider [...] to drive with medication. 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 CURRENT FUNCTIONAL STATUS: same SOCIAL / FAMILY [...] D for prescriptions. Uses [facility] CURRENT HOME/COMMUNITY SERVICES/EQUIPMENT: None PROFESSOR OF BIBLICAL STUDIES REFERRAL: Notified PROFESSOR OF BIBLICAL STUDIES, Alexandru Casas regarding pt's [place] Medicaid. Pt's [place] Medicaid is not active per Alexandru Casas PROFESSOR OF BIBLICAL STUDIES. PRIMARY CARE PHYSICIAN: PATRIC AL MD ALEJANDRA [address] / [facility] [id number] POTENTIAL DISCHARGE NEEDS: None identified at this [...] while hospitalized. Awaiting Endocrine consult. Calista Jaimes BRIQUETTE MACHINE OPERATOR HELPER CRC/Jaye Dennison MSN BSN RN CRC Office of Care Managment Pager [phone] . * Padma Marquez I, RD - 08/22/2013 11:42 AM EDT Nutrition Services Education Note Diet Rx: [place]/Low Fat Patient Active Problem List Diagnosis Code [...] Weight loss options discussed Phase II Referral: [facility] Activity Summary: By discharge, patient will be [...] up with PCP or Dr Bird in [place] I reviewed the patient with and agree with the recommendations and plans * Sarthak Pollard MD - 08/22/2013 7:18 AM EDT Inpatient Cardiology Progress Note Patient Name: Lux Dixon Service: NOISE ABATEMENT ENGINEER / PA Responsible Attending: Dr Pollard Reason for continued hospitalization: Evaluation and management of NSTEMI S/p cardiac catheterization, PCI of LCX, being seen by Cardiac Rehabilitation [facility] 10, Endocrine consulted Active Problems: [...] ??? [DISCONTINUED] sodium chloride 0.9% Stopped (08/20/13 3745) Physical Exam: Vital Signs: Last value Range [...] distal pulses b/l No femoral bruits, R galye test abnormal Right groin site is clean, [...] 2v CABG and recurrent angina, +NSTEMI pending [facility]. Stable. Plan: 1. CAD/ CABGx2, stable Telemetry [...] discussed with Dr. Pollard. JUSTIN OROSCO Pager [phone] 08/22/2013 Cardiology Attending Note: I interviewed and [...] as oral agents. He lives in the [facility]. We will set him up to see Dr. Reji Lucia or one of his colleagues. Time spent at bedside and coordinating care: 35 mins. Sarthak Pollard MD, MS Staff [employer] Pager [phone] * Latonya Sanders - 08/21/2013 10:28 PM [...] pulses are palpable. Latonya Sanders MD # [id number] * Sarthak Pollard MD - 08/21/2013 8:36 AM EDT Inpatient Cardiology Progress Note Patient Name: Lux Dixon Jr. Service: NOISE ABATEMENT ENGINEER / PA Responsible Attending: Dr Pollard Reason for continued hospitalization: Evaluation and management of NSTEMI Active Problems: Active Hospital Problems Diagnosis ??? Coronary artery disease Priority: High NSTEMI 12-29-2011 Cath - LAD, PDA and Distal Circ Disease CABG 01-04-2012 (MARTINEZ-LAD, SVG-PDA) ??? TR (tricuspid regurgitation), mild Mild MS ??? CAD (coronary artery disease) 2009 , [...] rhythm, 1 short run [facility] Meds: Scheduled Meds: ??? sodium chloride 0.9 [...] mcg/min (08/21/13215) ??? heparin 2,150 Units/hr (08/21/13 3890) ??? sodium chloride 0.9% Stopped (08/20/13 3156) Physical Exam: Vital Signs: Last value Range [...] 2v CABG and recurrent angina, +NSTEMI pending [facility]. Plan: 1. CAD/ CABGx2, [facility] today Needs risk factors addressed Has not [...] to his RPDA and occlusion of his [place] RCA since that time of his last [...] 35 mins. Sarthak Pollard MD, MS Staff [employer] Pager [phone] * Reny Kent RN - 08/20/2013 10:08 [...] 00 and 0200. 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 MRN No - [id number] Date of - 1975 Age - 38 [...] CABG MARTINEZ-LAD, SVG-PDA and Obesity transferred from [facility] because of CP which started yesterday while [...] glucose of 546, normal BUN/cr. He was [id number] of plavix and started on heparin gtt. He had some CP on arrival to [place] which was -01/15. ECG was normal. Dr. [...] FOR CABG performed by INNA TOVAR at [facility] MAIN OR ??? 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 Diabetes History: Lux Dixon [...] of SVG to RPDA and occlusion of [place] RCA. LVEDP . PCI of mid and [...] up with PCP or Dr Bird in [place] ??? Obesity Weight is 130.5 Kg [...] SVG-PDA in 2011 and obesity transferred from [facility] for chest pain which started the day [...] or vomiting. Hospital Course: On admission to [facility], he had CP on arrival to [place] which was 1-3. ECG was normal. He [...] occlusion of SVG to RPDA, occlusion of [place] RCA. The SVG to RCA was not [...] up with PCP or Dr Bird in [place] Smoking cessation was advised & discussed. [...] appointments: -During 8am-5pm Wednesday through Wednesday call [phone] to speak with a nurse in the cardiology clinic -All other times call [phone] and ask to speak to the language pathologist writer technical publications. Return to work/ usual actvities: 1 week, as tolerated. No squatting or lifting more than 10 pounds until then. Driving: No driving for 48 hours after catheterization. Follow up Appointments: PCP: PATRIC AL MD at [phone] to see you on WednesdayAugust 28 at 10:50 am. [employer], Dr. Oseguera, to see you on 09/20/14 at noon. Please call [phone] with questions. Diabetes medication instructions You should [...] Complete By Expires Referral to Cardiac Rehab [[id number] Custom] Process Instructions: If no progress note charted, please enter Clinical details in comments. Scheduling Instructions: Comments: Pt will participate in cardiac rehab @ [facility] Questions: Responses: Reason for referral NSTEMI Provider Contact Information: JALEN Billingsley NP Dr Bruce Andrus [phone] Discharge References/Attachments: Discharge References/Attachments CHEST PAIN (ANGINA): AFTER YOUR VISIT ([place]) CORONARY ARTERY DISEASE: AFTER YOUR VISIT ([place]) DIABETES DIET GUIDELINES: AFTER YOUR VISIT ([place]) HEART ATTACK: AFTER YOUR VISIT ([place]) HEMOGLOBIN A1C: ABOUT THIS TEST ([place]) HOME BLOOD GLUCOSE TEST: ABOUT THIS TEST ([place]) Signed: JUSTIN OROSCO Pager [phone] DATE: 08/22/2013 * Miscellaneous - Provider, Scanning - 08/20/2013 2:59 PM EDT * Miscellaneous - Provider, Scanning - 08/20/2013 2:58 PM EDT documented in this encounter Plan of Treatment Upcoming Encounters Date Type Department Care Team (Late st Contact Info) Description 11/09/2024 1:30 PM EST Office Visit Infectious [place] [address] Isabela Hayward APRN [facility] [place] [address] 11/10/2024 10:00 AM EST Office Visit Vascular [place] [phone] Dai Whitman APRN 11/21/2024 2:15 PM EST Office Visit Endocrinology [place] [phone] Dayanara Grover MD [facility] [place] [address] Scheduled Orders Name Type Priority Associated Diagnoses Orde r Schedule EKG 12 Lead ECG STAT Chest pain One Time for 1 Occurrences starting 08/20/2013 until 08/20/2013 Scheduled Referrals Name Type Priority Associated Diagnoses Orde r Schedule Referral to Cardiac Rehab Outpatient Referral Routine NSTEMI (non-ST elevated myocardial infarction) Ordered: 08/22/2013 documented as of this encounter Procedures Procedure Name Priority Date/Time Associated Diagnosis Comments ASSISTANT PRODUCT MANAGER SCAN 08/24/2013 11:52 AM EDT POCT GLUCOSE Routine 08/22/2013 11:52 AM EDT POCT GLUCOSE Routine 08/22/2013 7:47 AM EDT EKG 12-LEAD Routine 08/22/2013 7:45 AM EDT Chest pain BMP W/FASTING GLUCOSE Routine 08/22/2013 4:03 AM EDT DIFFERENTIAL, AUTOMATED Routine 08/22/20 13 4:03 AM EDT CARDIAC ENZYMES ([place]/CGP) Routine 08/22/2013 4:03 AM EDT CBC (WITH DIFF) Routine 08/22/2013 4:03 AM EDT POCT GLUCOSE Routine 08/21/2013 10:43 PM EDT POCT GLUCOSE Routine 08/21/2013 8:28 PM EDT CARDIAC ENZYMES ([place]/CGP) STAT 08/21/2013 6:36 PM EDT POCT GLUCOSE [...] Routine 08/21/20 3:53 AM EDT CARDIAC ENZYMES ([place]/CGP) Routine 08/21/2013 3:53 AM EDT APTT Routine [...] STAT 08/20/2013 11:51 PM EDT CARDIAC ENZYMES ([place]/CGP) STAT 08/20/2013 9:40 PM EDT XR CHEST [...] 08/20/2013 1: 45 PM EDT CARDIAC ENZYMES ([place]/CGP) Routine 08/20/2013 1:45 PM EDT APTT Routine 08/20/2013 1:45 PM EDT PROTHROMBIN TIME Routine 08/20/2013 1:45 PM EDT CBC (WITH DIFF) Routine 08/20/2013 1:45 PM EDT MAGNESIUM Routine 08/20/2013 1:45 PM EDT BASIC METABOLIC PANEL Routine 08/20/2013 1:45 PM EDT POCT GLUCOSE Routine 08/20/2013 1:23 PM EDT documented in this encounter Results * SCAN DOC: ASSISTANT PRODUCT MANAGER (08/24/2013 11:52 AM EDT) Anatomical Region Laterality Modality Other Narrative 08/24/2013 12:55 PM EDT Procedure Note Provider, Scanning - 08/24/2013 11:52 AM EDT Scanning Provider MEDIA MGR SCAN EXT O RDR/RSLT * (ABNORMAL) POCT Glucose (08/22/2013 11:52 AM EDT) Glucose, POC 225(H) 60 - 199 mg/dL [facility] Comment: Supplemental ranges: <110 mg/dL before meals <200 mg/dL all other times of the day Blood specimen (specimen) 08/22/2013 11:52 AM EDT 08/22/2013 11:52 AM EDT Asad Biggs MD POINT OF CARE TEST O GILDA Performing Organization Address [facility] de Phone Number [facility] * POCT Glucose (08/22/2013 7:47 AM EDT) Glucose, POC 199 60 - 199 mg/dL [facility] Comment: Supplemental ranges: <110 mg/dL before meals <200 mg/dL all other times of the day Blood specimen (specimen) 08/22/2013 7:47 AM EDT 08/22/2013 7:47 AM EDT Asad Biggs MD POINT OF CARE TEST O GILDA Performing Organization Address [facility]/ZIP Co de Phone Number CERNER MILLENNIUM * EKG 12 Lead (08/22/2013 7:45 AM EDT) Ventricular rate 79 BPM MUSE SYSTEM Atrial Rate 79 BPM MUSE SYSTEM P-R Interval 182 ms MUSE SYSTEM QRS Duration 108 ms MUSE SYSTEM Q-T Interval 406 ms MUSE SYSTEM QTC Calculated (Bezet) 465 ms MUSE SYSTEM Calculated P [place] 57 degrees MUSE SYSTEM Calculated R [place] 23 degrees MUSE SYSTEM Calculated T [place] 2 degrees MUSE SYSTEM INTERPRETATION Normal sinus [...] EDT Tim Uribe MD HEMATOLOGY ORDERAB LES [facility] * (ABNORMAL) BMP w/fasting Glucose (08/22/2013 4:03 [...] of Diabetes Mellitus, Position Statement from the [place] Diabetes Association. ??Diabetes Care, Volume 33, Supplement 1, Nov 2009 Blood Urea Nitrogen 6(L) 10 - 20 mg/dL CERNER MILLENNIUM Creatinine 0.62(L) 0.80 - 1.50 mg/dL CERNER MILLENNIUM Comment: Please note that the pediatric reference intervals supplied above were not validated at [place]. Results from pediatric patients should be interpreted [...] Lab Tim Uribe MD CHEMISTRY ORDERABL ES [facility] OMAR * (ABNORMAL) Cardiac Enzymes (08/22/2013 4:03 AM [...] consensus document of the Joint Society of Cardiology/[place] College of Cardiology Committee for the redefinition of myocardial infarction. Journal of the [place] College of Cardiology 2000; 36: 959-969] Creatine [...] MD HEMATOLOGY ORDERAB LES Performing Organization Address [facility] Co de Phone Number [facility] * POCT Glucose (08/21/2013 10:43 PM EDT) Glucose, POC 193 60 - 199 mg/dL [facility] Comment: Supplemental ranges: <110 mg/dL before meals <200 mg/dL all other times of the day Blood specimen (specimen) 08/21/2013 10:43 PM EDT 08/21/2013 10:43 PM EDT Asad Biggs MD POINT OF CARE TEST O RDERABLES Performing Organization Address [facility] Co de Phone Number [facility] * (ABNORMAL) POCT Glucose (08/21/2013 8:28 PM EDT) Glucose, POC 259(H) 60 - 199 mg/dL [facility] Comment: Supplemental ranges: <110 mg/dL before meals <200 mg/dL all other times of the day Blood specimen (specimen) 08/21/2013 8:28 PM EDT 08/21/2013 8:28 PM EDT Asad Biggs MD POINT OF CARE TEST O RDERABLES Performing Organization Address [facility] Co de Phone Number [facility] * (ABNORMAL) Cardiac Enzymes (08/21/2013 6:36 PM EDT) Troponin-T 0.93(H) <=0.03 ng/mL [facility] Comment: 0.03 ng/mL: Represents the 99th [...] consensus document of the Joint Society of Cardiology/[place] College of Cardiology Committee for the redefinition of myocardial infarction. Journal of the [place] College of Cardiology 2000; 36: 959-969] Creatine Kinase 594(H) 0 - 200 unit/L [facility] Blood specimen (specimen) 08/21/2013 6:36 PM EDT 08/21/2013 6:47 PM EDT Narrative Resulting Agency Comment Spec In Lab Sarthak Pollard MD CHEMISTRY ORDERABLES Performing Organization Address [facility] Co de Phone Number [facility] * POCT Glucose (08/21/2013 4:25 PM EDT) Pathologist [facility] Glucose, POC 138 60 - 199 mg/dL [facility] Comment: Supplemental ranges: <110 mg/dL before meals <200 mg/dL all other times of the day Blood specimen (specimen) 08/21/2013 4:25 PM EDT 08/21/2013 4:25 PM EDT Asad Biggs MD POINT OF CARE TEST O RDERABLES Performing Organization Address [facility] Co de Phone Number [facility] * EKG 12 Lead (08/21/2013 2:53 PM EDT) Ventricular rate 75 BPM MUSE SYSTEM Atrial Rate 75 BPM MUSE SYSTEM P-R Interval 172 ms MUSE SYSTEM QRS Duration 106 ms MUSE SYSTEM Q-T Interval 388 ms MUSE SYSTEM QTC Calculated (Bezet) 433 ms MUSE SYSTEM Calculated P [place] 11 degrees MUSE SYSTEM Calculated R [place] 35 degrees MUSE SYSTEM Calculated T [place] 1 degrees MUSE SYSTEM INTERPRETATION Normal sinus rhythm Normal ECG When compared with ECG of 21-AUG-2013 02:54, No significant change was found Confirmed by Pablito Torres MD ([id number]) on 08/22/2013 3:01:48 PM MUSE SYSTEM 08/21/2013 2:53 PM EDT 08/22/2013 3:01 PM EDT Tim Uribe MD ECG ORDERABLES Performing Organization Address [facility] Co de Phone Number MUSE SYSTEM * Cardiac Catheterization (08/21/2013 2:38 PM EDT) Anatomical Region Laterality Modality Other Narrative 08/21/2013 7:29 PM EDT Procedure Note Provider, Scanning - 08/21/2013 3:30 PM EDT sAad Biggs MD CARDIAC CATH ORDERAB LES * (ABNORMAL) POCT Glucose (08/21/2013 11:37 AM EDT) Glucose, POC 200(H) 60 - 199 mg/dL [facility] Comment: Supplemental ranges: <110 mg/dL before meals <200 mg/dL all other times of the day Blood specimen (specimen) 08/21/2013 11:37 AM EDT 08/21/2013 11:37 AM EDT Asad Biggs MD POINT OF CARE TEST O RDERABLES Performing Organization Address [facility] de Phone Number [facility] * (ABNORMAL) APTT (08/21/2013 11:09 AM EDT) Partial Thromboplastin Time 63(H) 25 - 35 sec [facility] Comment: Recommended therapeutic PTT range for full dose unfractionated heparin is 80-114 seconds. Blood specimen (specimen) 08/21/2013 11:09 AM EDT 08/21/2013 11:42 AM EDT Narrative Resulting Agency Comment Spec In Lab Asad Biggs MD HEMATOLOGY ORDERABLE S Performing Organization Address [facility] Co de Phone Number [facility] * Echocardiogram Transthoracic(Leb) (08/21/2013 9:16 AM EDT) EF 65 HEARTLAB SYSTEM Anatomical Region Laterality Modality Other 08/21/2013 Narrative 08/21/2013 9:51 AM EDT Procedure: ? Transthoracic Echocardiogram Patient: ? QUIANA Llanos ?(Age): 1975(38) Med Rec#: ?[id number] ? Sex: ?M ? Site Loc: ?[place] ? Ht / Wt: ??180(cm)/127(kg) Pt. Loc: ? Adult Floor ?BSA: ?2.52 Study Date: ?08/21/2013 ? Pt. Type: Inpatient Tape: ? Referring: Eben Bingham Referring: AKANKSHA CAI Faculty Head: Patric Blunt [facility] Interpreting Fellow: Luca Wilson ([id number]) Diagnosis: ??Chest pain (786.50) CPT Code(s): ??Echo Full (67900), ??Spectral Doppler (66720), ??Color Doppler (09282), Indication(s): ??Chest Pain Rhythm: HR ?BP ?121/62 [...] ? Mid-Inferior ?Normal ? Mid-Inferoseptal ?Normal ? Vidal-Septal ? Normal ? Vidal-Anterior ? Normal ? Vidal-Lateral ?Normal ? Vidal-Inferior ? Normal ? Vidal-Tip ?Normal ? Chambers ?Value ?Units (Range) ? [...] 08/21/2013 09:50:27 Images reviewed and interpretation verified [facility] Cardiac Ultrasound Laboratory Resulting Agency Comment [id number] Procedure Note Umair Brock MD - 08/21/2013 Procedure: Transthoracic Echocardiogram Patient: QUIANA [place]IN [place] (Age): 1975(38) Med Rec#: [id number] Sex: M Site Loc: [place] Ht / Wt: 180(cm)/127(kg) Pt. Loc: Adult Floor BSA: 2.52 Study Date: 08/21/2013 Pt. Type: Inpatient Tape: Referring: OtiliaEben Referring: AKANKSHA CAI Faculty Head: Patric Blunt [facility] Interpreting Fellow: Luca Wilson ([id number]) Diagnosis: Chest pain (786.50) CPT Code(s): Echo Full (48309), Spectral Doppler (56246), Color Doppler (02797), Indication(s): Chest Pain Rhythm: HR BP 121/62 [...] Normal Mid-Posterolateral Normal Mid-Inferior Normal Mid-Inferoseptal Normal Vidal-Septal Normal Vidal-Anterior Normal Vidal-Lateral Normal Vidal-Inferior Normal Vidal-Tip Normal Chambers Value Units (Range) LV EF [...] 08/21/2013 09:50:27 Images reviewed and interpretation verified [facility] Cardiac Ultrasound Laboratory Eben Ruiz MD ECHO ORDERABLES * (ABNORMAL) POCT Glucose (08/21/2013 8:33 AM EDT) Pathologist [facility] Glucose, POC 202(H) 60 - 199 mg/dL [facility] Comment: Supplemental ranges: <110 mg/dL before [...] S Performing Organization Address City/[facility] Co de Phone Number CERBRIAN CAENNIUM * [...] x10(3)/mc L ARIAN CERDAIUM Blood specimen (specimen) 08/21/2013 3:53 AM EDT 08/21/2013 4:00 AM EDT Eben Ruiz MD HEMATOLOGY ORDERABLE S ARIAN NELSON * (ABNORMAL) Cardiac Enzymes (08/21/2013 3:53 AM EDT) Troponin-T 1.06(H) <=0.03 ng/mL [facility] C[facility]DA[facility] Comment: 0.03 ng/mL: [...] consensus document of the Joint Society of Cardiology/[place] College of Cardiology Committee for the redefinition of myocardial infarction. Journal of the [place] College of Cardiology 2000; 36: 959-969] Creatine Kinase 777(H) 0 - 200 unit/L ARIAN CERDAIUM Blood specimen (specimen) 08/21/2013 3:53 AM EDT 08/21/2013 4:00 AM EDT Narrative Resulting Agency Comment Spec In Lab Eben Ruiz MD CHEMISTRY ORDERABLES ARIAN CAENNIUM * (ABNORMAL) BMP w/fasting Glucose (08/21/2013 3:53 AM EDT) [facility] Glucose Fasting 230(H) 65 - 99 mg/dL [...] of Diabetes Mellitus, Position Statement from the [place] Diabetes Association. ??Diabetes Care, Volume 33, Supplement 1, Nov 2009 Blood Urea Nitrogen 15 10 - 20 mg/dL CERNER MILLENNIUM Creatinine 0.67(L) 0.80 - 1.50 mg/dL CERNER MILLENNIUM Comment: Please note that the pediatric reference intervals supplied above were not validated at [place]. Results from pediatric patients should be interpreted [...] Address [facility] de Phone Number ARIAN NELSON * Prothrombin Time (08/21/2013 3:53 AM EDT) Prothrombin Time 13.5 12.0 - 15.0 sec [facility] Comment: [facility] Transfusion Committee Guidelines: INR less than 2.0, PTT less than OR equal to 43.5 seconds, or Fibrinogen greater than or equal to 100 mg/dl indicate adequate procoagulant activity for hemostasis in patients without underlying bleeding disorders. International Normalization Ratio 1.0 0.9 - 1.1 [facility] Blood specimen (specimen) 08/21/2013 3:53 AM EDT 08/21/2013 4:00 AM EDT Narrative Resulting Agency Comment Spec In Lab Asad Biggs MD HEMATOLOGY ORDERABLE S Performing Organization Address [facility] de Phone Number ARIAN NELSON * (ABNORMAL) Triglyceride (08/21/2013 3:53 AM EDT) Triglyceride 733(H) <=149 mg/dL [facility] Comment: Reference Range: Normal triglycerides: ??<150 mg/dL Borderline high: ??150-199 mg/dL High: ??200-499 mg/dL Very high: ??>bj=017 mg/dL ELISEO 2001; 285(19):5893-7199 Blood specimen (specimen) 08/21/2013 3:53 AM EDT 08/21/2013 4:00 AM EDT Narrative Resulting Agency Comment Spec In Lab Eben Ruiz MD CHEMISTRY ORDERABLES Performing Organization Address [facility] de Phone Number ARIAN NELSON * (ABNORMAL) HDL/Cholesterol Profile (08/21/2013 3:53 AM EDT) Cholesterol, Total 218(H) <=199 mg/dL [facility] Comment: Recommendations of the NCEP Adult Treatment Panel for the following risk cutoff thresholds for the [place] population: Desirable: <200 mg/dL Borderline High: 200-239 mg/dL High: > or = 240 mg/dL HDL Cholesterol 24(L) >=40 mg/dL [facility] Comment: Reference range: ??Low HDL: ?? < 40 mg/dL ??Normal: ?40-60 mg/dL ??Desirable: > 60 mg/dL ELISEO 2001; 285(19):3223-0614 Cholesterol/HDL Ratio 9.1 ratio [facility] Comment: A Cholesterol to HDL ratio below 4:1 is desirable. ??Studies suggest that increased CAD risk occurs at ratios above 5 for females and above 6 for men. ? [place] [employer] Association ??(http://www.americanheart.org) ? Jazmine Int Med, 1994; 121:641 ? AM J Med, 1998; 105(1A):48S Blood specimen (specimen) 08/21/2013 3:53 AM EDT 08/21/2013 4:00 AM EDT Narrative Resulting Agency Comment Spec In Lab Eben Ruiz MD CHEMISTRY ORDERABLES [facility] * (ABNORMAL) LDL Cholesterol, Direct (08/21/2013 3:53 AM EDT) LDL Cholesterol, Direct 107(H) <=99 mg/dL [facility] Comment: The National Cholesterol Education Program (NCEP) has set the following guidelines for LDL Cholesterol: Reference range: ?? Optimal: ?<100 mg/dL ?? Near Optimal/Above Optimal: ?? 100-129 mg/dL ?? Borderline high: ?130-159 mg/dL ?? High: ? 160-189 mg/dL ?? Very high: ?>yr=101 mg/dL ELISEO 2001: 285(19):7645-7292 Blood specimen (specimen) 08/21/2013 3:53 AM EDT 08/21/2013 4:00 AM EDT Narrative Resulting Agency Comment Spec In Lab Eben Ruiz MD CHEMISTRY ORDERABLES [facility] * (ABNORMAL) Hemoglobin A1c (08/21/2013 3:53 AM EDT) Hemoglobin A1c 10.0(H) 4.3 - 6.1 % [facility] Comment: The [place] Diabetes Association (ADA) has stated that HbA1c [...] 2013:36;suppl 1:S11-S66. Estimated Average Glucose 240 mg/dL [facility] Comment: eAG equivalents for HbA1c percentages: [...] into estimated average glucose values. ??Diabetes Care 2008:31(8):2034-6785. Blood specimen (specimen) 08/21/2013 3:53 AM EDT 08/21/2013 4:00 AM EDT Narrative Resulting Agency Comment Spec In Lab Eben Ruiz MD CHEMISTRY ORDERABLES Performing Organization Address [facility] de Phone Number [facility] * EKG 12 Lead (08/21/2013 2:54 AM EDT) Ventricular rate 68 BPM MUSE SYSTEM Atrial Rate 68 BPM MUSE SYSTEM P-R Interval 188 ms MUSE SYSTEM QRS Duration 104 ms MUSE SYSTEM Q-T Interval 406 ms MUSE SYSTEM QTC Calculated (Bezet) 431 ms MUSE SYSTEM Calculated P [place] 4 degrees MUSE SYSTEM Calculated R [place] 28 degrees MUSE SYSTEM Calculated T [place] 21 degrees MUSE SYSTEM INTERPRETATION Normal sinus rhythm Nonspecific T wave abnormality Abnormal ECG When compared with ECG of 20-AUG-2013 15:19, No significant change was found Confirmed by Brian DE Pablito ([id number]) on 08/21/2013 12:56:35 PM MUSE SYSTEM 08/21/2013 2:54 AM EDT 08/21/2013 12:56 PM EDT Eben Ruiz MD ECG ORDERABLES Performing Organization Address [facility] de Phone Number MUSE SYSTEM * (ABNORMAL) POCT Glucose (08/21/2013 1:59 AM EDT) Glucose, POC 262(H) 60 - 199 mg/dL [facility] Comment: Supplemental ranges: <110 mg/dL before meals <200 mg/dL all other times of the day Blood specimen (specimen) 08/21/2013 1:59 AM EDT 08/21/2013 1:59 AM EDT Asad Biggs MD POINT OF CARE TEST O RDERABLES Performing Organization Address [facility] de Phone Number ARIAN NELSON * (ABNORMAL) POCT Glucose (08/20/2013 11:54 PM EDT) Glucose, POC 290(H) 60 - 199 mg/dL [facility] Comment: Supplemental ranges: <110 mg/dL before meals <200 mg/dL all other times of the day Blood specimen (specimen) 08/20/2013 11:54 PM EDT 08/20/2013 11:54 PM EDT Asad Biggs MD POINT OF CARE TEST O RDERAHERNANDEZ Performing Organization Address [facility] de Phone Number JILLIANBRIAN NELSON * APTT (08/20/2013 11:51 PM EDT) Partial Thromboplastin Time 35 25 - 35 sec [facility] Comment: Recommended therapeutic PTT range for full dose unfractionated heparin is 80-114 seconds. Blood specimen (specimen) 08/20/2013 11:51 PM EDT 08/21/2013 12:01 AM EDT Narrative Resulting Agency Comment Spec In Lab Asad Biggs MD HEMATOLOGY ORDERABLE S Performing Organization Address [facility] de Phone Number ARIAN NELSON * (ABNORMAL) Cardiac Enzymes (08/20/2013 9:40 PM EDT) Troponin-T 0.74(H) <=0.03 ng/mL [facility] Comment: 0.03 ng/mL: Represents the 99th percentile [...] consensus document of the Joint Society of Cardiology/[place] [employer]iology Committee for the redefinition of myocardial infarction. Journal of the [place] [employer] 2000; 36: 959-969] Creatine [...] Glucose, POC 200(H) 60 - 199 mg/dL [facility] Comment: Supplemental ranges: <110 mg/dL before meals <200 mg/dL all other times of the day Blood specimen (specimen) 08/20/2013 8:26 PM EDT 08/20/2013 8:26 PM EDT Asad Biggs MD POINT OF CARE TEST [email or web address] Performing Organization Address [facility] Co de Phone Number [facility] * (ABNORMAL) POCT Glucose (08/20/2013 5:03 PM EDT) Glucose, POC 230(H) 60 - 199 mg/dL [facility] Comment: Supplemental ranges: <110 mg/dL before meals <200 mg/dL all other times of the day Blood specimen (specimen) 08/20/2013 5:03 PM EDT 08/20/2013 5:03 PM EDT Asad Biggs MD POINT OF CARE TEST [email or web address] Performing Organization Address [facility] Co de Phone Number [facility] * EKG 12 Lead (08/20/2013 3:19 PM EDT) Ventricular rate 68 BPM MUSE SYSTEM Atrial Rate 68 BPM MUSE SYSTEM P-R Interval 182 ms MUSE SYSTEM QRS Duration 100 ms MUSE SYSTEM Q-T Interval 410 ms MUSE SYSTEM QTC Calculated (Bezet) 435 ms MUSE SYSTEM Calculated P [place] 3 degrees MUSE SYSTEM Calculated R [place] 19 degrees MUSE SYSTEM Calculated T [place] 35 degrees MUSE SYSTEM INTERPRETATION Normal sinus [...] Biggs MD CHEMISTRY ORDERABLES Performing Organization Address [facility] de Phone Number ARIAN NELSON [...] consensus document of the Joint Society of Cardiology/[place] [employer]iology Committee for the redefinition of myocardial infarction. Journal of the [place] [employer]iology 2000; 36: 959-969] Creatine Kinase 505(H) 0 - 200 unit/L ARIAN NELSON Blood specimen (specimen) 08/20/2013 1:45 PM EDT 08/20/2013 1:54 PM EDT Narrative Resulting Agency Comment Spec In Lab Asad Biggs MD CHEMISTRY ORDERABLES Performing Organization Address [facility] Co de Phone Number ARIAN NELSON * (ABNORMAL) Basic Metabolic Panel (non-fasting) (08/20/2013 1:45 PM EDT) [facility] Glucose 246(H) 60 - 199 mg/dL [facility] Comment:Diabetes: >=200 mg/d L plus symptoms Blood Urea Nitrogen 15 10 - 20 mg/dL [facility] Creatinine 0.68(L) 0.80 - 1.50 mg/dL [facility] Comment: Please note that the pediatric reference intervals supplied above were not validated at [place]. Results from pediatric patients should be interpreted [...] In Lab Asad Biggs MD CHEMISTRY ORDERABLES [facility] * (ABNORMAL) APTT (08/20/2013 1:45 PM EDT) Partial Thromboplastin Time 40(H) 25 - 35 sec [facility] Comment: Recommended therapeutic PTT range for full dose unfractionated heparin is 80-114 seconds. Blood specimen (specimen) 08/20/2013 1:45 PM EDT 08/20/2013 1:45 PM EDT Narrative Resulting Agency Comment Spec In Lab Asad Biggs MD HEMATOLOGY ORDERABLE S Performing Organization Address [facility] de Phone Number [facility] * Prothrombin Time (08/20/2013 1:45 PM EDT) Prothrombin Time 13.7 12.0 - 15.0 sec [facility] Comment: [facility] Transfusion Committee Guidelines: INR less than 2.0, PTT less than OR equal to 43.5 seconds, or Fibrinogen greater than or equal to 100 mg/dl indicate adequate procoagulant activity for hemostasis in patients without underlying bleeding disorders. International Normalization Ratio 1.0 0.9 - 1.1 [facility] Blood specimen (specimen) 08/20/2013 1:45 PM EDT 08/20/2013 1:45 PM EDT Narrative Resulting Agency Comment Spec In Lab Asad Biggs MD HEMATOLOGY ORDERABLE S Performing Organization Address [facility] de Phone Number [facility] * D-Dimer, Quantitative (08/20/2013 1:45 PM EDT) D-Dimer <200 0 - 500 FEU ng/ml [facility] Comment: The D-Dimer assay is used [...] Address [facility] Co de Phone Number [facility] * Lavender Tube HOLD (08/20/2013 1:45 PM EDT) Lavender Hold Sample in lab. [facility] Blood specimen (specimen) 08/20/2013 1:45 PM EDT 08/20/2013 1:45 PM EDT Asad Biggs MD HEMATOLOGY ORDERABLE S [facility] * Blue Tube HOLD (08/20/2013 1:45 PM EDT) Blue Hold Sample in lab. ARIAN NELSON Blood specimen (specimen) 08/20/2013 1:45 PM EDT 08/20/2013 1:45 PM EDT Asad Biggs MD HEMATOLOGY ORDERABLE S Performing Organization Address [facility] de Phone Number ARIAN NELSON * Green Tube HOLD (08/20/2013 1:45 PM EDT) Green Hold Sample in lab. ARIAN NELSON Blood specimen (specimen) 08/20/2013 1:45 PM EDT 08/20/2013 1:45 PM EDT Asad Biggs MD CHEMISTRY ORDERABLES Performing Organization Address [facility] Phone Number ARIAN NELSON * (ABNORMAL) POCT [...] Address [facility] de Phone Number ARIAN NELSON documented in this encounter Visit Diagnoses Not on filedocumented in this encounter Administered Medications Inactive Administered Medications - up to 3 most recent administrations Medication Order MAR Action Action Date Dose Rate Site acetaminophen (TYLENOL) tablet 1,000 mg 1,000 mg, Oral, EVERY 6 HOURS PRN, Starting on 08/20/13 at 1528, Until 08/22/13 at 1741, Pain, Maximum dose of acetaminophen [...] in sodium chloride 0.9% 50 mL infusion (COIL WINDER REPAIR) CONTINUOUS PRN, Starting on Wed08/21/13 at 1345, [...] than 145 sec X 2 - call housekeeping associate See Bolus dosing guidance for aPTT values [...] was having echo)120 (Given - Provider: Lola Tipton RN)162 (Not [...] on Wed08/20/13 at 1700, Until Discontinued, Routine 1837 (Given [...] Discontinued, Routine 0900 (Given - Provider: Lola Tipton, DAVID) 0859 (Given - Provider: Roxanna Mcallister) Continuous [...] than 145 sec X 2 - call housekeeping associate See Bolus dosing guidance for aPTT values less than 80 seconds under PRN medications, Routine 1330 (New Bag - Provider: Sana Bella, DAVID)1841 (Rate/Dose Change - Provider: Sana Bella RN) [...] Chong RN)1844 (Rate/Dose Change - Provider: Sana Bella, DAVID)2017 (Rate/Dose Change - Provider: Reny Kent RN) [...] in sodium chloride 0.9% 50 mL infusion (COIL WINDER REPAIR) (CANCELED) CONTINUOUS PRN, Starting on Wed08/21/13 at [...] Routine documented in this encounter Care Teams Estimator Relationship Specialty Start Date End Date Patric Al MD PCP - General 12/29/11 02/26/19 documented as of this encounter
--- OUTSIDE RECORDS SUMMARY | 2024-10-31 15:45 | XMS_ITS | Encounter Summary ---
Author Organization [facility] [place] [address] Care Team Providers Care Keyboarding Clerk Name Role Phone Guanako Gusman MD Primary Care Provider [phone] Encounter Details Date Type Department Care Team (Late st Contact Info) Description 01/26/2012 Orders [place] [address] Benjamin Lockwood PA Social History Tobacco Use Types Packs/Day [...] PM EST Office [place] [address] Isabela Hayward, [facility] [place] [address] 11/10/2024 10:00 AM EST Office [place] [address] Dai Whitman APRN 11/21/2024 2:15 PM EST Office [place] [address] Dayanara Grover MD [facility] [place] [address] documented as of this encounter Visit Diagnoses Not on filedocumented in this encounter Care Teams Keyboarding Clerk Relationship Specialty Start Date End Date Guanako Gusman MD PCP - General 12/29/11 02/26/19 documented as of this encounter
--- OUTSIDE RECORDS SUMMARY | 2024-10-31 15:46 | XMS_ITS | Encounter Summary ---
Author Organization [facility] Address [facility] [place] [address] Care Team Providers Care Activities Aide Name Role Phone Patric Al MD Primary Care Provider [phone] Reason for Referral * (Routine) - Closed by system - unspecified Specialty Diagnoses / Procedures Referred By William t Referred To Contact Diagnoses Chest pain Sarthak Pollard MD [facility] [place] [address] Referral ID Status Reason Start Date Expiration Date Visits Requested Visits Authorized [id number] Closed by system - unspecified Evaluate and Treat 01/08/2012 07/06/2012 1 1 Encounter Details Date Type Department Care Team (Latest Contact Info) Description 12/29/2011 8:26 PM EST - 01/08/2012 2:58 PM EST Hospital Encounter Inter[place] [address] Andi Rene MD Andrus, Bruce W, MD [facility] [place], [place] [id number] Inna Tovar MD Chest pain Discharge Disposition: Home with VNA [...] 12:11 PM EST Geovanna Dixon . 1975 [id number] New Diagnosis of Pre-Diabetes For discharge should [...] Some considerations about using metformin in Prediabetics: [place] Diabetes Prevention Program (DPP) as well as other minor studies and meta-analyses has convincingly demonstrated the efficacy of metformin in this patient group [pre-diabetics]. In addition, results of the 10 year DPP follow up have recently been published, demonstrating the custodial safety and sustainability of metformin treatment benefits [...] - will be starting Cardiac rehab at [facility], encouraged to increase physical activity as advised by cardiologists Weight Loss - A 7% weight loss could significantly improve his BG control Tobacco cessation - There is growing evidence that cigarette smokers are more prone than the general population to develop T2DM. Increase in insulin resistance with tobacco use. Darcie Lange APRN [facility] Endocrinology Diabetes Management [phone] * Patient Instructions* Ricky Graham PA - [...] Anne Tovar and/or the Cardiothoracic Surgery Physician Civil Structural Designer Team may be reached at . Activity [...] Dr. Inna Tovar. You may use a [place] Track or treadmill but avoid any pulling [...] would be to continue to go [place]. He has quit this way before and [...] only 10% of those who quit [place] are able to be successful. The calculated savings once he quits smoking would be $54 a week, $234 a month, and $2803 a year. If he quits now his savings will be $28,030 in 10 years. The patient was provided with a [facility] Smoking Cessation packet and the contents have [...] is open to a phone call from [place] in 1-2 weeks as well. Vibha Martines [...] given to patient. Discharge summary faxed to [facility] and receipt confirmed via phone. Patient discharged [...] outpatient basis Equipment needs: none ADEBAYO MCGARRY, SECURITY TECHNICIAN Pager: [phone] Physical Therapy Rehabilitation Department * Michelle Chong [...] services. Patient would like VNA services through [facility] [employer]. PHONE: [phone] FAX: [phone]. Referral made via E-discharge. Please see home care orders that must be included in discharge summary for VN services to start. Patient has glucometer and supplies at bedside. Pt. Denies any further needs from [facility]. Pt. Gets scripts through [place] Medicaid with co-pay. He denies any concerns related to co-pay. * Darcie Lange, FLOAT TENDER - 01/07/2012 9:57 AM EST Geovanna Dixon . 1975 [id number] PATRIC AL MD Follow Up Diabetes Consult [...] 0316 01/06/12 0112 01/05/12 2352 01/05/12 2254 [id number] ??? POCGLU 116 127 131 160 168 [...] Some considerations about using metformin in Prediabetics: [place] Diabetes Prevention Program (DPP) as well as other minor studies and meta-analyses has convincingly demonstrated the efficacy of metformin in this patient group [pre-diabetics]. In addition, results of the 10 year DPP follow up have recently been published, demonstrating the vermin exterminator safety and sustainability of metformin treatment [...] - will be starting Cardiac rehab at [facility], encouraged to increase physical activity as [...] sensitive Novolog correction only Darcie Lange APRN [facility] Endocrinology Diabetes Management [phone] Pager [phone] This case was discussed with Dr. Christina Brody. 25 min time spent in patient care with 20 counseling, seeing patient, changing orders and discussion with the patient and the primary team as well as nursing. * Inna Tovar MD - 01/07/2012 9:39 AM EST Cardiac Surgery Progress Note: ID: [id number] 36/M POD #[address] Tovar [...] results found for this basename: phart, po2art, jfm6dod Assessment/Plan: Pathway. Neuro: ambulating on own per [...] home. (ie take out the trash or medicinal plant picker his child) Objective:Pt was seen today [...] interventions: 30 minutes NAM TRINIDAD, PT Pager: [phone] Physical Therapy Rehabilitation Department * Vibha Martines [...] FOR CABG performed by INNA TOVAR at [facility] MA[facility] OR ??? Cabg, artery-vein, single 01/04/2012 @CABG, VENOUS & ARTERIAL GRAFT;SINGLE VEIN GRAFT performed by INNA TOVAR at [facility] OR Outpatient prescriptions marked as [...] yes Date: 12/29/11 Why then: Admission to [facility] What will be different this time: Just [...] would be to continue to go [place]. He has quit this way before and it lasted several years, so he has a history of being successful with this method. He also pointed out that his father and an uncle quit (for now over 10 years) by going [place]. I told him that it is difficult to recommend a quit method that has a 90% failure rate, but that said, it is his choice and that I would provide him with a toolkit of information so that he will be as knowledgeable as possible about nicotineaddiction and how to stay quit. And we do know that 10% of those who quit [place] are able to be successful. I calculated and shared with him that his savings once he quits smoking would be $54 a week, $234 amonth, and $2803 a year. If he quits now his savings will be $28,030 in 10 years. The patient has also been provided with a [facility] Smoking Cessation packet and the contents have been reviewed with him. The patient now has the Quit line number for [place] and has also been encouraged to use this if needed for support. In addition he was in agreement with a referral to the [place] Quitnetworkand I have FAXed a referral to [...] Nutrition Intervention: Hospital Day 9 Diet Order: [facility] Appetite: fair Food allergies: none Chewing/Swallowing difficulty: none Height: (cm) 180.3 Weight: (kg) 127.9 01/06/12 Wt hx: (kg) 124.5 12/29/11 BMI: 38.4 Education: [facility] dietary guidelines. Tips To Better Food Intake (Protein) dietary guidelines. Verbalized good understanding. Education material, with means of contact provided. Assessment: Patient verbalized good understanding of protein needs for healing as well as [facility] Heart Healthy guidelines. I have added high protein snacks between meals and CIB shakes to meal trays for extra protein/nutrition. Nutrition Plan: Diet: [facility] Recommend Daily Multi Vitamins. Added high protein snacks. CIB w/skim milk shakes three times per day. Encourage good po intake. Monitor weight. Support and encouragement provided. Nutrition services to follow weekly thru hospital course unless consulted in the interim. ACOSTA SMALL * Inna Tovar MD - 01/06/2012 1:50 PM EST Cardiac Surgery In Patient Progress Note Patient Name: Geovanna Dixon Jr. : [id number] MR#: [id number] Admitted: 12/29/2011 Hospital Day 8 days Problem [...] Subjective and 24 hr events: -[facility] - No BM - Pain about a [...] Hamlin RN - 01/06/2012 10:11 AM EST [facility] CARDIAC REHABILITATION Geovanna Dixon Jr. was seen today regarding participation in outpatient Phase 2 Cardiac Rehabilitation at [facility] . A referral will be sent to this program. The patient was given contact information and should expect to be contacted by the program within 1-2 weeks after discharge from [facility]. * Kareen Mendoza PT - 01/05/2012 3:59 [...] FOR CABG performed by INNA TOVAR at [facility] OR ??? Cabg, artery-vein, single 01/04/2012 @CABG, VENOUS & ARTERIAL GRAFT;SINGLE VEIN GRAFT performed by INNA TOVAR at [facility] OR Social History: Patient lives [...] minutes brief evaluation KAREEN MENDOZA, PT Pager: [phone] Physical Therapy Rehabilitation Department * Camille Angulo [...] A: medical plan still evolving. P: This lead technical writer or colleague from the Office [...] FULL CODE Paola Akers PGY 1 Pager [phone] Attending Addendum: I spoke with the patient and his family briefly this am. I agree with the principal findings. The impression and plan incorporate my input. No contraindication to surgery today. Sarthak Pollard MD [facility] pager [phone] * Sarthak Pollard MD - 01/03/2012 11:08 AM EST CARDIOLOGY INPATIENT PROGRESS NOTE Geovanna Viet Dixon Jr. SUMMARY: Geovanna Shahmonika Winter is a 36 y.o. male with: NSTEMI, [...] Sarthak Pollard MD [facility] pager [phone] * Bal John MD - 01/02/2012 3:10 [...] Cristina Ambriz MD PGY1, Internal Medicine Pager [phone] 01/02/2012 Attending Addendum: I have interviewed and examined the patient. I agree with the principal findings. The impression and plan incorporate my input. As above, doing well. Will keep on heparin until surgery. No angina, HF, bleeding, or evidence of HIT. Sarthak Pollard MD [facility] pager [phone] * Inna Tovar MD - 01/01/2012 3:17 [...] mg BID Paola Akers PGY 1 Pager [phone] Attending Addendum: I have interviewed and examined the patient. I agree with the principal findings. The impression and plan incorporate my input. He is disappointed that his surgery has been postponed until Wednesday butunderstands. He remains cp free. I've reviewed his angiograms and believe he needs to stay on heparin until surgery. All questions answered. Sarthak Pollard MD [facility] pager [phone] * Andi Rene MD - 12/31/2011 5:20 [...] for chest pain as a transfer from [facility] - Cardiac cath yesterday showed significant [...] mg BID Paola Akers PGY 1 Pager [phone] Cardiology Attending Progress Note Addendum: I have [...] would like to attend cardiac rehab at [facility] in [facility]. We will meet him again after [...] Call saucedo within reach, family at bedside. 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 documented in this encounter H&P Notes * Herman Loyd RN - 01/05/2012 12:44 PM EST Patient being transferred [facility] , report to Camilla. * Inna [...] alleviate the pain. He eventually presented to [facility] on Wednesday wherehe had elevated troponins [...] Lives on social security in house in [place] with two children (18 and 4, and one step child) Active pack per day smoker (27pack year history) No etoh No drugs Enjoys riding motorcycles and hunting He is NOT a anglican FHx: Heart disease on both sides of [...] 13.2 12/29/2011 PTT 31 12/30/2011 Troponins at [facility]: 0.05-->0.03 Imaging: Echo 12/30/11: 1. The left [...] loss were emphasized as they relate to custodial patency of his grafts. He should receive smoking cessation counseling donya. One post op consideration will be vent wean and respiratory status given likely underlying CAMILLA and his known narcolepsy. 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 Pt seen and interviewed with [...] +active 25 pack year smoker comes to [facility] from [facility] for evaluation of intermittent [...] FULL Provider: REMIGIO CERON MD Pager #: [phone] documented in this encounter Procedure Notes * Provider, Scanning - 01/10/2012 1:46 PM ESTAssociated Order(s): SCAN DOC: TITLE ASSISTANT * Provider, Scanning - 01/10/2012 1:46 PM [...] 3:45 PM EST Geovanna Dixon Jr. 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 Diabetes History: Geovanna Dixon Jr. [...] Diabetes Care: Medications: None Monitoring: None Diet: [facility] Healthy No Known Allergies Past Medical History: [...] considerations about using metformin in Prediabetics: ?? [place] Diabetes Prevention Program (DPP) as well as other minor studies and meta-analyses hasconvincingly demonstrated the efficacy of metformin in this patient group [pre-diabetics]. In addition, results of the 10 year DPP follow up have recently been published, demonstrating the custodial safety and sustainability of metformin treatment benefits [...] - will be starting Cardiac rehab at [facility], encouraged to increase physical activity as [...] metformin 500 mg QD Darcie Lange APRN [facility] Endocrinology Diabetes Management [phone] Pager [phone] This case was discussed with Dr. Christina [...] alleviate the pain. He eventually presented to [facility] on Wednesday where he had elevated [...] Course: Geovanna Dixon JrFlorencio was admitted to [facility] on 12/29/2011 to the cardiologyservice for [...] He was brought to the operating room 2/27/[address] Inna Tovar performed a two [...] Medications: Geovanna Dixon Jr. Home Medication Instructions CRAIG:[id number] Printed on:01/08/12 7502 Medication Information simvastatin (ZOCOR) 20 mg tablet [...] Anne Tovar and/or the Cardiothoracic Surgery Physician Civil Structural Designer Team may be reached at . Activity [...] Dr. Inna Tovar. You may use a [place] Track or treadmill but avoid any pulling [...] with the surgeon. Do not ride motorcycles, ATCody'stractors or horses. Avoid the use of a [...] would be to continue to go [place]. He has quit this way before and [...] only 10% of those who quit [place] are able to be successful. The calculated savings once he quits smoking would be $54 a week, $234 a month, and $2803 a year. If he quits now his savings will be $28,030 in 10 years. The patient was provided with a [facility] Smoking Cessation packet and the contents have [...] Some considerations about using metformin in Prediabetics: [place] Diabetes Prevention Program (DPP) as well as other minor studies and meta-analyses has convincingly demonstrated the efficacy of metformin in this patient group [pre-diabetics]. In addition, results of the 10 year DPP follow up have recently been published, demonstrating the vermin exterminator safety and sustainability of metformin treatment [...] - will be starting Cardiac rehab at [facility], encouraged to increase physical activity as advised by cardiologists Weight Loss - A 7% weight loss could significantly improve his BG control Tobacco cessation - There is growing evidence that cigarette smokers are more prone than the general population to develop T2DM. Increase in insulin resistance with tobacco use. Darcie Lange APRN [facility] Endocrinology Diabetes Management [phone] Medications: Take only those medications listed on [...] should resume a low fat, low cholesterol, [place] Heart Association Diet. Driving: No driving for [...] in outpatient Phase 2 Cardiac Rehabilitation at [facility] . A referral will be sent to this program. He was given contact information and shouldexpect to be contacted by the program within 1-2 weeks after discharge from [facility]. Arrangements for VNA/home care: PATIENT'S LOCATION: Geovanna Dixon Jr. [address] [place] [address] There is no home phone number on file. Telephone Information: In discussion with the attending physician, it is certified that this patient is under their care and that they, or a nurse practitioner, clinical nurse specialist or physician's assistant district attorney who is working directly with them, had [...] for services as follows: HOME HEALTH AGENCY: [facility] PHONE: [phone] FAX: [phone] RN orders: Cardiopulmonary assessment, incisional assessment, assess [...] issues please call the Cardiac SurgeryOffice at [phone] FOR MEDICARE ONLY: (please delete this section if not Medicare) In discussion with the attending physician, it is certified that the clinical findings support thatthis patient is homebound (i.e. absences from home require considerable and taxing effort and are for medical reasons or jainism services of infrequently or of short duration [...] practitioner, clinical nurse specialist or physician's assistant district attorney who is working directly with them, had [...] effort and are for medical reasons or jainism services of infrequently or of short duration when for other reasons) Please note that any additional orders needs or changes will need to be obtained from this patient's PCP: PATRIC AL MD [phone] All VNA agencies which cover the area of patient's residence have been reviewed, either verbally feli writing, and patient/family have chosen the indicated home health care agency for home services. Comments: Questions: Responses: Agency name and contact information [facility] Patient location post discharge home What services are requested Start date 01/10/2012 Responsible MD post discharge contact info PCP RN to remove chest tube sutures on or after 01/13/12. Signed: Ricky Graham PA-C [facility] Section of Cardiothoracic Surgery Date: 01/08/12 CC: MD CARLOS MENDEZ [facility] [address] [place] [address] [place] [address] * Op Note - Inna Tovar MD - 01/04/2012 3:55 PM EST [facility] Operative Note Patient Name: Geovanna Dixon Jr. : [id number] MR#: [id number] Case Date: 01/04/2012 Surgeon: Surgeon(s) and Role: [...] enlarged. 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 The OFELIA and vein were of excellent quality. The lungs had early emphysematous changes. Procedure Details: The patient was brought to the operating room and given general anesthesia. A [place]-Haley catheter, radial arterial line, and Mendez catheter [...] fter inspection for adequate hemostasis, two #28 German chest tubes were placed and brought out [...] Note Patient Name: Geovanna Dixon Jr. 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 No recent out door activities or [...] pharyngitis on exam, with recent exposure to sallyter who had pneumonia. The patient denies rigors, [...] PM EST Office [place] [address] Isabela Hayward, [facility] [place] [address] 11/10/2024 10:00 AM EST Office [place] [address] Dai Whitman APRN 11/21/2024 2:15 PM EST Office Visit [place] [address] Dayanara Grover MD [facility] [place] [address] Scheduled Referrals Name Type Priority Associated Diagnoses Orde r Schedule REFERRAL TO CARDIAC REHAB Outpatient Referral Routine Chest pain Ordered: 01/08/2012 documented as of this encounter Procedures Procedure Name Priority Date/Time Associated Diagnosis Comments CARDIAC CATHETERIZATION Routine 01/11/20 12 11:04 AM EST LAB SCAN 01/10/2012 1:46 PM EST TITLE ASSISTANT SCAN 01/10/2012 1:46 PM EST CARDIAC CATH [...] 01/05/20 12 2:00 AM EST CARDIAC ENZYMES ([facility]/CGP) Routine 01/05/2012 2:00 AM EST CREATININE Routine [...] 01/02/2012 11:21 PM EST TYPE AND SCREEN ([facility]/CGP/BABITA) Routine 01/02/2012 11:00 PM EST APTT STAT [...] 12/30/2011 4:25 PM EST TYPE AND SCREEN ([facility]/CGP/BABITA) Routine 12/30/2011 4:14 PM EST CARDIAC ENZYMES ([facility]/CGP) STAT 12/30/2011 2:08 PM EST APTT STAT 12/30/2011 2:08 PM EST HIV SCREEN, 4TH GENERATION ([facility]/CGP/APD/NLH) Routine 12/30/2011 10:18 AM EST ECHOCARDIOGRAM TRANSTHORACIC [...] Routine 12/30/2011 7:07 AM EST CARDIAC ENZYMES ([facility]/CGP) STAT 12/30/2011 5:45 AM EST APTT STAT [...] 12/29/19 12 11:29 PM EST CARDIAC ENZYMES ([facility]/CGP) STAT 12/29/2011 11:29 PM EST APTT STAT [...] (Bezet) 453 ms MUSE SYSTEM Calculated P [place]et 41 degrees MUSE SYSTEM Calculated R Hemet 25 degrees MUSE SYSTEM Calculated T Hemet 74 degrees MUSE SYSTEM INTERPRETATION Sinus tachycardia [...] SCAN EXT O RDR/RSLT * SCAN DOC: TITLE ASSISTANT (01/10/2012 1:46 PM EST) Anatomical Region Laterality Modality Other Narrative 01/11/2012 8:32 AM EST Procedure Note Provider, Scanning - 01/10/2012 1:46 PM EST Scanning Provider MEDIA MGR SCAN EXT O RDR/RSLT * POCT GLUCOSE LAB USE ONLY (01/08/2012 12:00 PM EST) Glucose, POC 106 60 - 199 mg/dL [facility] Comment: Supplemental ranges: <110 mg/dL before meals <200 mg/dL all other times of the day Blood specimen (specimen) 01/08/2012 12:00 PM EST 01/08/2012 12:00 PM EST Andi Rene MD POINT OF CARE TEST O GILDA Performing Organization Address [facility] de Phone Number [facility] * Potassium (01/08/2012 10:05 AM EST) Potassium 4.2 3.5 - 5.0 mmol/L [facility] Comment: Please note: ??Patients with WBC [...] Tovar MD CHEMISTRY ORDERABLES Performing Organization Address [facility] Co de Phone Number [facility] * POCT GLUCOSE LAB USE ONLY (01/08/2012 7:21 AM EST) Glucose, POC 144 60 - 199 mg/dL [facility] Comment: Supplemental ranges: <110 mg/dL before meals <200 mg/dL all other times of the day Blood specimen (specimen) 01/08/2012 7:21 AM EST 01/08/2012 7:21 AM EST Andi Rene MD POINT OF CARE TEST O RDERABLES Performing Organization Address [facility] Phone Number [facility] * POCT GLUCOSE LAB USE ONLY (01/07/2012 8:43 PM EST) Glucose, POC 179 60 - 199 mg/dL [facility] Comment: Supplemental ranges: <110 mg/dL before meals <200 mg/dL all other times of the day Blood specimen (specimen) 01/07/2012 8:43 PM EST 01/07/2012 8:43 PM EST Andi Rene MD POINT OF CARE TEST O RDERABLES Performing Organization Address [facility] Phone Number [facility] * POCT GLUCOSE LAB USE ONLY (01/07/2012 4:47 PM EST) Glucose, POC 128 60 - 199 mg/dL [facility] Comment: Supplemental ranges: <110 mg/dL before meals <200 mg/dL all other times of the day Blood specimen (specimen) 01/07/2012 4:47 PM EST 01/07/2012 4:47 PM EST Andi Rene MD POINT OF CARE TEST O RDERABLES Performing Organization Address [facility] Phone Number [facility] * Potassium (01/07/2012 11:42 AM EST) Potassium 3.6 3.5 - 5.0 mmol/L [facility] Comment: Please note: ??Patients with WBC [...] Tovar MD CHEMISTRY ORDERABLES Performing Organization Address [facility] Phone Number CERNER MILLENNIUM * POCT GLUCOSE LAB USE ONLY (01/07/2012 11:41 AM EST) Glucose, POC 114 60 - 199 mg/dL ARIAN NELSON Comment: Supplemental ranges: <110 mg/dL before meals <200 mg/dL all other times of the day Blood specimen (specimen) 01/07/2012 11:41 AM EST 01/07/2012 11:41 AM EST Andi Rene MD POINT OF CARE TEST O RDERABLES [facility] * XR chest routine PA & [...] USE ONLY (01/07/2012 8:00 AM EST) Pathologist [facility] Glucose, POC 116 60 - 199 mg/dL CERNER MILLENNIUM Comment: Supplemental ranges: <110 mg/dL before meals <200 mg/dL all other times of the day Blood specimen (specimen) 01/07/2012 8:00 AM EST 01/07/2012 8:00 AM EST Andi Rene MD POINT OF CARE TEST O RDERABLES CERNER MILLENNIUM * (ABNORMAL) DIFFERENTIAL, AUTOMATED (01/07/2012 4:11 AM EST) Pathologist [facility] Neutrophil % 78.1(H) 34.0 - 71.0 % [...] Lab Sarthak Pollard MD CHEMISTRY ORDERABLES ARIAN ROBYPETR * (ABNORMAL) CBC (with Diff) (01/07/2012 4:11 [...] S Performing Organization Address [facility] Phone Number CERNER MILLENNIUM * Microalbumin, urine, random (01/06/2012 9:03 PM EST) Creatinine, Urine 136 mg/dL CE RNER MILLENNIUM Albumin, Urine 14.4 mg/L CERNE R MILLENNIUM Albumin / Creatinin Ratio, Urine 11 mcg/mg Cr CERNER MILLENNIUM Comment: Reference Range* Random collection (mcg/mg creatinine) Normal ?<30 Microalbuminuria ?? 30 - 300 Clinical Albuminuria ?? >300 *[place] [employer]. Diabetic Nephropathy. Diabetes Care 1997;(Suppl 1):S24-S27 Exercise within 24 hour, infection, fever, CHF, marked hyperglycemia, and marked hypertension may elevate urinary albumin excretion over baseline values. Urine specimen (specimen) 01/06/2012 9:03 PM EST 01/06/2012 10:28 PM EST Narrative Resulting Agency Comment Spec In Lab Inna Tovar MD URINE ORDERABLES Performing Organization Address [facility] de Phone Number [facility] * POCT GLUCOSE LAB USE ONLY (01/06/2012 7:46 PM EST) Glucose, POC 127 60 - 199 mg/dL CERNER MILLENNIUM Comment: Supplemental ranges: <110 mg/dL before meals <200 mg/dL all other times of the day Blood specimen (specimen) 01/06/2012 7:46 PM EST 01/06/2012 7:46 PM EST Andi Rene MD POINT OF CARE TEST O GILDA Performing Organization Address [facility] de Phone Number [facility] [employer] [facility] * POCT GLUCOSE LAB USE ONLY (01/06/2012 4:24 PM EST) Glucose, POC 131 60 - 199 mg/dL [facility] Comment: Supplemental ranges: <110 mg/dL before meals <200 mg/dL all other times of the day Blood specimen (specimen) 01/06/2012 4:24 PM EST 01/06/2012 4:24 PM EST Andi Rene MD POINT OF CARE TEST O GILDA Performing Organization Address [facility] de Phone Number [facility] [employer] [facility] * POCT GLUCOSE LAB USE ONLY (01/06/2012 12:06 PM EST) Glucose, POC 160 60 - 199 mg/dL [facility] [employer] [facility] Comment: Supplemental ranges: <110 mg/dL before meals <200 mg/dL all other times of the day Blood specimen (specimen) 01/06/2012 12:06 PM EST 01/06/2012 12:06 PM EST Andi Rene MD POINT OF CARE TEST O GILDA Performing Organization Address [facility] de Phone Number [facility] [employer] [facility] * Potassium (01/06/2012 9:59 AM EST) Potassium 4.0 3.5 - 5.0 mmol/L [facility] Comment: Please note: ??Patients with WBC [...] Tovar MD CHEMISTRY ORDERABLES Performing Organization Address [facility] de Phone Number [facility] * POCT GLUCOSE LAB USE ONLY (01/06/2012 6:53 AM EST) Glucose, POC 168 60 - 199 mg/dL [facility] Comment: Supplemental ranges: <110 mg/dL before meals <200 mg/dL all other times of the day Blood specimen (specimen) 01/06/2012 6:53 AM EST 01/06/2012 6:53 AM EST Andi Rene MD POINT OF CARE TEST O RDTYESHA Performing Organization Address [facility] de Phone Number [facility] * POCT GLUCOSE LAB USE ONLY (01/06/2012 5:03 AM EST) Glucose, POC 147 60 - 199 mg/dL [facility] Comment: Supplemental ranges: <110 mg/dL before meals <200 mg/dL all other times of the day Blood specimen (specimen) 01/06/2012 5:03 AM EST 01/06/2012 5:03 AM EST Andi Rene MD POINT OF CARE TEST O GILDA Performing Organization Address [facility] de Phone Number [facility] * POCT GLUCOSE LAB USE ONLY (01/06/2012 3:16 AM EST) Glucose, POC 126 60 - 199 mg/dL [facility] Comment: Supplemental ranges: <110 mg/dL before meals <200 mg/dL all other times of the day Blood specimen (specimen) 01/06/2012 3:16 AM EST 01/06/2012 3:16 AM EST Andi Rene MD POINT OF CARE TEST O RDERABLES Performing Organization Address [facility]/ZIP Co de Phone Number [facility] * POCT GLUCOSE LAB USE ONLY (01/06/2012 1:12 AM EST) Glucose, POC 135 60 - 199 mg/dL [facility] Comment: Supplemental ranges: <110 mg/dL before meals <200 mg/dL all other times of the day Blood specimen (specimen) 01/06/2012 1:12 AM EST 01/06/2012 1:12 AM EST Andi Rene MD POINT OF CARE TEST O RDERAHERNANDEZ Performing Organization Address [facility] Co de Phone Number [facility] * POCT GLUCOSE LAB USE ONLY (01/05/2012 11:52 PM EST) Glucose, POC 133 60 - 199 mg/dL [facility] Comment: Supplemental ranges: <110 mg/dL before meals <200 mg/dL all other times of the day Blood specimen (specimen) 01/05/2012 11:52 PM EST 01/05/2012 11:52 PM EST Andi Rene MD POINT OF CARE TEST O GILDA Performing Organization Address [facility] Co de Phone Number [facility] * POCT GLUCOSE LAB USE ONLY (01/05/2012 10:54 PM EST) Glucose, POC 130 60 - 199 mg/dL [facility] Comment: Supplemental ranges: <110 mg/dL before meals <200 mg/dL all other times of the day Blood specimen (specimen) 01/05/2012 10:54 PM EST 01/05/2012 10:54 PM EST Andi Rene MD POINT OF CARE TEST O RDERAHERNANDEZ Performing Organization Address [facility] Co de Phone Number [facility] * POCT GLUCOSE LAB USE ONLY (01/05/2012 9:51 PM EST) Glucose, POC 132 60 - 199 mg/dL CERNER MILLENNIUM Comment: Supplemental ranges: <110 mg/dL before meals <200 mg/dL all other times of the day Blood specimen (specimen) 01/05/2012 9:51 PM EST 01/05/2012 9:51 PM EST Andi Rene MD POINT OF CARE TEST O RDERAHERNANDEZ Performing Organization Address [facility] de Phone Number [facility] [employer]ENNIUM * POCT GLUCOSE LAB USE ONLY (01/05/2012 8:50 PM EST) Glucose, POC 126 60 - 199 mg/dL [facility] MILLENNIUM Comment: Supplemental ranges: <110 mg/dL before meals <200 mg/dL all other times of the day Blood specimen (specimen) 01/05/2012 8:50 PM EST 01/05/2012 8:50 PM EST Andi Rene MD POINT OF CARE TEST O DIMITRIERAHERNANDEZ Performing Organization Address [facility] de Phone Number [facility] [employer]ENNIUM * POCT GLUCOSE LAB USE ONLY (01/05/2012 8:07 PM EST) Glucose, POC 126 60 - 199 mg/dL [facility] MILLENNIUM Comment: Supplemental ranges: <110 mg/dL before meals <200 mg/dL all other times of the day Blood specimen (specimen) 01/05/2012 8:07 PM EST 01/05/2012 8:07 PM EST Andi Rene MD POINT OF CARE TEST O RDERAHERNANDEZ Performing Organization Address [facility] Co de Phone Number [facility] MILLENNIUM * POCT GLUCOSE LAB USE ONLY (01/05/2012 6:57 PM EST) Glucose, POC 137 60 - 199 mg/dL [facility] MILLENNIUM Comment: Supplemental ranges: <110 mg/dL before meals <200 mg/dL all other times of the day Blood specimen (specimen) 01/05/2012 6:57 PM EST 01/05/2012 6:57 PM EST Andi Rene MD POINT OF CARE TEST O RDERAHERNANDEZ Performing Organization Address [facility] Co de Phone Number [facility] [employer] [facility] * POCT GLUCOSE LAB USE ONLY (01/05/2012 4:59 PM EST) Glucose, POC 147 60 - 199 mg/dL [facility] Comment: Supplemental ranges: <110 mg/dL before meals <200 mg/dL all other times of the day Blood specimen (specimen) 01/05/2012 4:59 PM EST 01/05/2012 4:59 PM EST Andi Rene MD POINT OF CARE TEST O GILDA Performing Organization Address [facility] Phone Number [facility] [employer] [facility] * POCT GLUCOSE LAB USE ONLY (01/05/2012 1:05 PM EST) Glucose, POC 154 60 - 199 mg/dL [facility] Comment: Supplemental ranges: <110 mg/dL before meals <200 mg/dL all other times of the day Blood specimen (specimen) 01/05/2012 1:05 PM EST 01/05/2012 1:05 PM EST Andi Rene MD POINT OF CARE TEST O RDTYESHA Performing Organization Address [facility] de Phone Number [facility] [employer] [facility] * POCT GLUCOSE LAB USE ONLY (01/05/2012 12:42 PM EST) Glucose, POC 148 60 - 199 mg/dL [facility] Comment: Supplemental ranges: <110 mg/dL before meals <200 mg/dL all other times of the day Blood specimen (specimen) 01/05/2012 12:42 PM EST 01/05/2012 12:42 PM EST Andi Rene MD POINT OF CARE TEST O RDERAHERNANDEZ Performing Organization Address [facility] Co de Phone Number [facility] [employer] [facility] * POCT GLUCOSE LAB USE ONLY (01/05/2012 9:54 AM EST) Glucose, POC 145 60 - 199 mg/dL [facility] Comment: Supplemental ranges: <110 mg/dL before meals <200 mg/dL all other times of the day Blood specimen (specimen) 01/05/2012 9:54 AM EST 01/05/2012 9:54 AM EST Andi Rene MD POINT OF CARE TEST O GILDA Performing Organization Address [facility] de Phone Number [facility] * POCT GLUCOSE LAB USE ONLY (01/05/2012 8:00 AM EST) Glucose, POC 168 60 - 199 mg/dL [facility] Comment: Supplemental ranges: <110 mg/dL before meals <200 mg/dL all other times of the day Blood specimen (specimen) 01/05/2012 8:00 AM EST 01/05/2012 8:00 AM EST Andi Rene MD POINT OF CARE TEST O GLIDA Performing Organization Address [facility] de Phone Number [facility] * POCT GLUCOSE LAB USE ONLY (01/05/2012 5:58 AM EST) Glucose, POC 164 60 - 199 mg/dL [facility] Comment: Supplemental ranges: <110 mg/dL before meals <200 mg/dL all other times of the day Blood specimen (specimen) 01/05/2012 5:58 AM EST 01/05/2012 5:58 AM EST Andi Rene MD POINT OF CARE TEST O GILDA Performing Organization Address [facility] de Phone Number [facility] * POCT GLUCOSE LAB USE ONLY (01/05/2012 4:12 AM EST) Glucose, POC 148 60 - 199 mg/dL [facility] Comment: Supplemental ranges: <110 mg/dL before meals <200 mg/dL all other times of the day Blood specimen (specimen) 01/05/2012 4:12 AM EST 01/05/2012 4:12 AM EST Andi Rene MD POINT OF CARE TEST O RDERABLES Performing Organization Address City/[facility]/ZIP Co de Phone Number CERBRIAN CAENNIUM [...] RDERABLES Performing Organization Address [facility] Co de Phone Number CERNER MILLENNIUM [...] Gran % 3.90(H) 0.00 - 0.66 % ARIAN CAENNIUM Comment: Immature granulocytes(IG's)percentage and absolute count will include metamyelocytes, myelocytes, and promyelocytes. Blood smears from CBCs yielding IG's will be scanned manually for concordance. If this scan disagrees with the automated IG or if promyelocytes are noted, a manual differential will be performed. Immature Gran Absolute 0.97(H) 0.00 - 0.05 x10(3)/mc L ARIAN CAENNIUM Blood specimen (specimen) 01/05/2012 2:00 AM EST 01/05/2012 2:11 AM EST Sarthak Pollard MD HEMATOLOGY ORDERABLE S ARIAN NELSON * (ABNORMAL) Cardiac Enzymes (01/05/2012 2:00 AM EST) Troponin-T 0.39(H) <=0.03 ng/mL ARIAN CAENNIUM Comment: 0.03 ng/mL: Represents the 99th [...] consensus document of the Joint Society of Cardiology/[place] [employer] Committee for the redefinition of myocardial infarction. Journal of the [place] [employer] 2000; 36: 959-969] Creatine Kinase 436(H) 0 - 200 unit/L ARIAN CAENNIUM Blood specimen (specimen) 01/05/2012 2:00 AM EST 01/05/2012 2:11 AM EST Narrative Resulting Agency Comment Spec In Lab Sarthak Pollard MD CHEMISTRY ORDERABLES Performing Organization Address [facility] Phone Number [facility] * Potassium (01/05/2012 2:00 AM EST) [facility] Potassium 4.4 3.5 - 5.0 mmol/L [facility] Comment: Please note: ??Patients with WBC [...] Pollard MD CHEMISTRY ORDERABLES Performing Organization Address [facility] Phone Number [facility] * (ABNORMAL) Glucose, fasting (01/05/2012 2:00 AM EST) [facility] Glucose Fasting 148(H) 65 - 99 mg/dL [facility] Comment: ?Fasting* Glucose Interpretive Criteria Normal [...] of Diabetes Mellitus, Position Statement from the [place] [employer]. ??Diabetes Care, Volume 33, Supplement 1, Nov 2009 Blood specimen (specimen) 01/05/2012 2:00 AM EST 01/05/2012 2:11 AM EST Narrative Resulting Agency Comment Spec In Lab Sarthak Pollard MD CHEMISTRY ORDERABLES Performing Organization Address [facility] Phone Number [facility] * Creatinine, serum (01/05/2012 2:00 AM EST) Creatinine 0.86 0.80 - 1.50 mg/dL [facility] Est Glomerular Filtration Rate >60 >=60 JILLIANBRIAN CAYARYKEENA Comment: The National Kidney Disease Education Program [...] Pollard MD CHEMISTRY ORDERABLES ARIAN NELSON * BUN (01/05/2012 2:00 AM EST) Blood Urea Nitrogen 10 10 - 20 mg/dL [facility] Blood specimen (specimen) 01/05/2012 2:00 AM EST 01/05/2012 2:11 AM EST Narrative Resulting Agency Comment Spec In Lab Sarthak Pollard MD CHEMISTRY ORDERABLES Performing Organization Address [facility]/ZIP Co de Phone Number ARIAN CAENNIUM [...] HEMATOLOGY ORDERABLE S Performing Organization Address City/[facility]/ZIP Co de Phone Number ARIAN CERDAIUM [...] RDERABLES Performing Organization Address [facility] Phone Number [facility] * POCT GLUCOSE LAB USE ONLY (01/04/2012 9:00 PM EST) Glucose, POC 143 60 - 199 mg/dL [facility] Comment: Supplemental ranges: <110 mg/dL before meals <200 mg/dL all other times of the day Blood specimen (specimen) 01/04/2012 9:00 PM EST 01/04/2012 9:00 PM EST Andi Rene MD POINT OF CARE TEST O RDERABLES Performing Organization Address [facility] Phone Number [facility] * GLUCOSE, RANDOM (01/04/2012 9:00 PM EST) Glucose 128 60 - 199 mg/dL [facility] Comment:Diabetes: >=200 mg/d L plus symptoms Blood specimen (specimen) 01/04/2012 9:00 PM EST 01/04/2012 9:08 PM EST Narrative Resulting Agency Comment Spec In Lab Sarthak Pollard MD CHEMISTRY ORDERABLES Performing Organization Address [facility] Phone Number [facility] * (ABNORMAL) Hemoglobin (01/04/2012 9:00 PM EST) Hemoglobin 13.6(L) 13.7 - 17.5 gm/dL [facility] Blood specimen (specimen) 01/04/2012 9:00 PM EST 01/04/2012 9:08 PM EST Narrative Resulting Agency Comment Spec In Lab Sarthak Pollard MD HEMATOLOGY ORDERABLE S Performing Organization Address [facility] Phone Number [facility] * Potassium (01/04/2012 9:00 PM EST) [...] Comment: Total Hemoglobin (in gm/dL) ?Based on [facility] Hematology ranges: ?Age ?Reference Range Less than [...] Comment: Total Hemoglobin (in gm/dL) ?Based on [facility] Hematology ranges: ?Age ?Reference Range Less than [...] L plus symptoms. FIO2 Art 40 % CERBRIAN CAENNIUM PF Ratio Art 250 CERBRIAN CAENNIUM Blood specimen (specimen) 01/04/2012 6:21 PM EST 01/04/2012 6:21 PM EST Andi Rene MD POINT OF CARE TEST O RDERABLES ARIAN NELSON * XR CHEST PA OR AP- 1 [...] GAS 2 ARTERIAL (01/04/2012 4:30 PM EST) [facility] pH, Arterial 7.35(L) CERNER MILLENNIUM PCO2, Arterial 46(H) mmHg CERNE R MILLENNIUM PO2, Arterial 223(H) mmHg CERNER MILLENNIUM Bicarbonate, Arterial 25.1 mmol/L CERNER MILLENNIUM Base Excess, Arterial -0.4 mmol/L CERNER MILLENNIUM Hgb Blood Gas Not Perf 13.7 - 17.5 gm/dL CERNER MILLENNIUM Comment: Total Hemoglobin (in gm/dL) ?Based on [facility] Hematology ranges: ?Age ?Reference Range Less than [...] (Bezet) 455 ms MUSE SYSTEM Calculated P Hemet 48 degrees MUSE SYSTEM Calculated R Hemet 23 degrees MUSE SYSTEM Calculated T Hemet 71 degrees MUSE SYSTEM INTERPRETATION Normal sinus rhythm Normal ECG When compared with ECG of 30-DEC-2011 17:24, Vent. rate has decreased BY ??35 BPM Minimal criteria for Inferior infarct are no longer Present Nonspecific T wave abnormality, improved in Anterolateral leads Confirmed by fellow MD Steve, Luca ([id number]) on 01/05/2012 10:22:57 AM Confirmed by MD [...] MILLENNIUM Comment: Noted by electrical and instrumentation manager. MTF PO2, Arterial 145(H) mmHg CERNER MILLENNIUM Bicarbonate, Arterial 25.5 mmol/L CERNER MILLENNIUM Base Excess, Arterial -0.7 mmol/L CERNER MILLENNIUM Hgb Blood Gas 11.1(L) gm/dL CERNER MILLENNIUM Comment: Total Hemoglobin (in gm/dL) ?Based on [facility] Hematology ranges: ?Age ?Reference Range Less than [...] RDERABLES Performing Organization Address [facility] de Phone Number [facility] * THROMBIN TIME (01/04/2012 3:28 PM EST) Thrombin Time 17 15 - 20 sec [facility] Blood specimen (specimen) 01/04/2012 3:28 PM EST 01/04/2012 3:28 PM EST Narrative Resulting Agency Comment Spec In Lab Sarthak Pollard MD HEMATOLOGY ORDERABLE S Performing Organization Address [facility] de Phone Number [facility] * FIBRINOGEN (01/04/2012 3:28 PM EST) Fibrinogen 364 200 - 470 mg/dL [facility] Comment:Called by: LEILANI, Read back by: AKANKSHA SAMPSON, Date/Time:01/04/12 15:45. Blood specimen (specimen) 01/04/2012 3:28 PM EST 01/04/2012 3:28 PM EST Narrative Resulting Agency Comment Spec In Lab Sarthak Pollard MD HEMATOLOGY ORDERABLE S Performing Organization Address [facility] de Phone Number [facility] * APTT (01/04/2012 3:28 PM EST) Partial Thromboplastin Time 30 25 - 35 sec CERNER MILLENNIUM Comment: Recommended therapeutic PTT range for full dose unfractionated heparin is 80-114 seconds. Blood specimen (specimen) 01/04/2012 3:28 PM EST 01/04/2012 3:28 PM EST Narrative Resulting Agency Comment Spec In Lab Sarthak Pollard MD HEMATOLOGY ORDERABLE S Performing Organization Address [facility] de Phone Number ARIAN CERDAIUM * (ABNORMAL) PROTHROMBIN TIME (01/04/2012 3:28 PM EST) Prothrombin Time 17.8(H) 11.9 - 14.7 sec CERNER MILLENNIUM Comment: [facility] Transfusion Committee Guidelines: INR less than [...] S Performing Organization Address [facility] Phone Number ARIAN NELSON * (ABNORMAL) CBC (WITH DIFF) (01/04/2012 3:28 [...] MILLENNIUM Comment: Noted by electrical and instrumentation manager. MTF PO2, Arterial 296(H) mmHg CERNER MILLENNIUM Bicarbonate, Arterial 26.3(H) mmol/L CERNER MILLENNIUM Base Excess, Arterial 0.1 mmol/L CERNER MILLENNIUM Hgb Blood Gas 10.2(L) gm/dL CERNER MILLENNIUM Comment: Total Hemoglobin (in gm/dL) ?Based on [facility] Hematology ranges: ?Age ?Reference Range Less than [...] POINT OF CARE TEST O RDERABLES CERNER PRASHANTIUM * FIBRINOGEN (01/04/2012 2:25 PM EST) Fibrinogen [...] HEMATOLOGY ORDERABLE S Performing Organization Address City/[facility]/ZIP Co de Phone Number CERNER MILLENNIUM * (ABNORMAL) BLOOD GAS 2 ARTERIAL (01/04/2012 12:59 PM EST) pH, Arterial 7.36 CERNER MILLENNIUM PCO2, Arterial 48(H) mmHg CERNE R MILLENNIUM PO2, Arterial 197(H) mmHg CERNER MILLENNIUM Bicarbonate, Arterial 26.7(H) mmol/L CERNER MILLENNIUM Base Excess, Arterial 1.3 mmol/L CERNER MILLENNIUM Hgb Blood Gas 13.9 gm/dL CERNER MILLENNIUM Comment: Total Hemoglobin (in gm/dL) ?Based on [facility] Hematology ranges: ?Age ?Reference Range Less than [...] CARE TEST O RDERABLES CERBRIAN CAENNIUM * Prepare Coag Factors (Non-Hemophilia) (01/04/2012 12:05 PM EST) Dispensed? Yes CERNER MILLENNIUM Blood specimen (specimen) 01/04/2012 12:05 PM EST 01/04/2012 12:01 PM EST Narrative Resulting Agency Comment Spec In Lab Inna Tovar MD BLOOD BANK PRODUCT O RDERABLES CERBRIAN CAENNIUM * Prepare RBC (01/04/2012 12:05 PM EST) Dispensed? Yes CERNER MILLENNIUM Blood specimen (specimen) 01/04/2012 12:05 PM EST 01/04/2012 12:01 PM EST Narrative Resulting Agency Comment Spec In Lab Inna Tovar MD BLOOD BANK PRODUCT O RDERAHERNANDEZ CERNER MILLENNIUM * (ABNORMAL) DIFFERENTIAL, MANUAL (01/04/2012 [...] 0.0 - 0.2 x10(3)/mc L CERNER MILLENNIUM [place] Absolute Manual 0.3(H) 0.0 - 0.0 x10(3)/mc [...] of Diabetes Mellitus, Position Statement from the [place] [employer]. ??Diabetes Care, Volume 33, Supplement [...] ARIAN NELSON * (ABNORMAL) CBC (with Diff) (01/04/2012 4:40 [...] S Performing Organization Address [facility] Co de Phone Number [facility] * (ABNORMAL) APTT (01/04/2012 4:40 AM EST) Partial Thromboplastin Time 103(H) 25 - 35 sec [facility] Comment: Recommended therapeutic PTT range for full dose unfractionated heparin is 80-114 seconds. Blood specimen (specimen) 01/04/2012 4:40 AM EST 01/04/2012 4:52 AM EST Narrative Resulting Agency Comment Spec In Lab Sarthak Pollard MD HEMATOLOGY ORDERABLE S Performing Organization Address [facility] Co de Phone Number [facility] * (ABNORMAL) APTT (01/03/2012 7:38 PM EST) Partial Thromboplastin Time 98(H) 25 - 35 sec [facility] Comment: Recommended therapeutic PTT range for full dose unfractionated heparin is 80-114 seconds. Blood specimen (specimen) 01/03/2012 7:38 PM EST 01/03/2012 7:53 PM EST Narrative Resulting Agency Comment Spec In Lab Sarthak Pollard MD HEMATOLOGY ORDERABLE S [facility] * (ABNORMAL) APTT (01/03/2012 12:17 PM EST) Partial Thromboplastin Time 101(H) 25 - 35 sec [facility] Comment: Recommended therapeutic PTT range for full dose unfractionated heparin is 80-114 seconds. Blood specimen (specimen) 01/03/2012 12:17 PM EST 01/03/2012 12:26 PM EST Narrative Resulting Agency Comment Spec In Lab Sarthak Pollard MD HEMATOLOGY ORDERABLE S Performing Organization Address City/[facility]/ZIP Co de Phone Number CERNER MILLENNIUM [...] HEMATOLOGY ORDERABLE S Performing Organization Address City/[facility]/ZIP Co de Phone Number ARIAN CERDAIUM * ANTIBODY SCREEN (01/03/2012 6:15 AM EST) Ab Screen Interp Negative ARIAN CERDAIUM Expires at [id number] on: [id number] [facility] Blood specimen (specimen) 01/03/2012 6:15 AM EST 01/03/2012 6:35 AM EST Narrative Resulting Agency Comment Spec In Lab Sarthak Pollard MD BLOOD BANK LAB ORDER RANDELL Performing Organization Address [facility] Co de Phone Number ARIAN CERDAIUM * ABO/RH TYPING (01/03/2012 6:15 AM EST) Pathologist [facility] ABORH Type A Pos [facility] Blood specimen (specimen) 01/03/2012 6:15 AM EST 01/03/2012 6:35 AM EST Narrative Resulting Agency Comment Spec In Lab Sarthak Pollard MD BLOOD BANK LAB ORDER RANDELL Performing Organization Address [facility] Co de Phone Number [facility] CERDAIUM * (ABNORMAL) APTT (01/03/2012 6:15 AM EST) Partial Thromboplastin Time 96(H) 25 - 35 sec [facility] Comment: Recommended therapeutic PTT range for [...] of Diabetes Mellitus, Position Statement from the [place] [employer] Association. ??Diabetes Care, Volume 33, Supplement [...] HOSPITAL ROBYENNIUM * (ABNORMAL) CBC (with Diff) (01/03/2012 [...] S Performing Organization Address [facility] Co de Phone Number [facility] * (ABNORMAL) APTT (01/02/2012 11:21 PM EST) Partial Thromboplastin Time 69(H) 25 - 35 sec [facility] Comment: Recommended therapeutic PTT range for full dose unfractionated heparin is 80-114 seconds. Blood specimen (specimen) 01/02/2012 11:21 PM EST 01/02/2012 11:24 PM EST Narrative Resulting Agency Comment Spec In Lab Sarthak Pollard MD HEMATOLOGY ORDERABLE S Performing Organization Address [facility] Phone Number [facility] * (ABNORMAL) APTT (01/02/2012 5:32 PM EST) Partial Thromboplastin Time 53(H) 25 - 35 sec [facility] Comment: Recommended therapeutic PTT range for full dose unfractionated heparin is 80-114 seconds. Blood specimen (specimen) 01/02/2012 5:32 PM EST 01/02/2012 5:38 PM EST Narrative Resulting Agency Comment Spec In Lab Sarthak Pollard MD HEMATOLOGY ORDERABLE S Performing Organization Address [facility] Co de Phone Number [facility] * (ABNORMAL) APTT (01/02/2012 11:56 AM [...] Ceron MD HEMATOLOGY ORDERABLE S [facility] * (ABNORMAL) APTT (01/02/2012 6:02 AM EST) Partial Thromboplastin Time 42(H) 25 - 35 sec [facility] Comment: Recommended therapeutic PTT range for full dose unfractionated heparin is 80-114 seconds. Blood specimen (specimen) 01/02/2012 6:02 AM EST 01/02/2012 6:29 AM EST Narrative Resulting Agency Comment Spec In Lab Sarthak Pollard MD HEMATOLOGY ORDERABLE S Performing Organization Address City/[facility] Co de Phone Number [facility] ROBY[facility]NI[facility] * (ABNORMAL) BMP w/fasting Glucose (01/02/2012 6:02 AM EST) Glucose Fasting 113(H) 65 - 99 mg/dL [facility] Comment: ?Fasting* Glucose Interpretive Criteria Normal ?65-99 [...] of Diabetes Mellitus, Position Statement from the [place] Diabetes Association. ??Diabetes Care, Volume 33, Supplement [...] Lab Andi Rene MD CHEMISTRY ORDERABLES [facility] * (ABNORMAL) CBC (with Diff) (01/02/2012 6:02 [...] S Performing Organization Address [facility] de Phone Number [facility] CERDAI[facility] * (ABNORMAL) APTT (01/02/2012 12:23 AM EST) Partial Thromboplastin Time 36(H) 25 - 35 sec [facility] Comment: Recommended therapeutic PTT range for full dose unfractionated heparin is 80-114 seconds. Blood specimen (specimen) 01/02/2012 12:23 AM EST 01/02/2012 12:28 AM EST Narrative Resulting Agency Comment Spec In Lab Sarthak Pollard MD HEMATOLOGY ORDERABLE S [facility] NELSON * (ABNORMAL) DIFFERENTIAL, AUTOMATED (01/01/2012 6:37 PM [...] HEMATOLOGY ORDERABLE S [facility]AN NELSON * (ABNORMAL) CBC (with Diff) (01/01/2012 6:37 PM EST) White Blood Cell 11.0(H) 4.0 - 10.0 x10(3)/mc L [facility] MILLENNIUM Red Blood Cell 4.32(L) 4.63 - 6.08 x10(6)/mc L [facility] Hemoglobin 13.1(L) 13.7 - 17.5 gm/dL [facility] MILL[facility] Hematocrit 38.1(L) 40.0 - 51.0 % [facility] Mean Cell Volume 88.2 79.0 - 92.0 fL [facility] MILL[facility] Mean Cell Hemoglobin 30.3 25.6 - 32.2 pg [facility] Mean Cell Hemoglobin Concentration 34.4 32.0 - 36.5 gm/dL [facility] MILLENNIUM Platelet 262 145 - 370 x10(3)/mc L [facility] MILL[facility]UM RDW Standard Deviation 41.6 35.0 - 46.0 fL [facility] MILL[facility] RDW coefficient of variation 12.9 10.9 - 14.4 % [facility] MILLENNIUM Mean Platelet Volume 10.1 9.0 - 12.0 fL [facility] Blood specimen (specimen) 01/01/2012 6:37 PM EST 01/01/2012 6:43 PM EST Narrative Resulting Agency Comment Spec In Lab Sarthak Pollard MD HEMATOLOGY ORDERABLE S Performing Organization Address [facility] Phone Number [facility] * APTT (01/01/2012 6:37 PM EST) Partial Thromboplastin Time 32 25 - 35 sec [facility] Comment: Recommended therapeutic PTT range for full dose unfractionated heparin is 80-114 seconds. Blood specimen (specimen) 01/01/2012 6:37 PM EST 01/01/2012 6:43 PM EST Narrative Resulting Agency Comment Spec In Lab Sarthak Pollard MD HEMATOLOGY ORDERABLE S Performing Organization Address [facility] de Phone Number [facility] * POCT GLUCOSE LAB USE ONLY (01/01/2012 12:02 PM EST) Pathologist [facility] Glucose, POC 99 60 - 199 mg/dL [facility] Comment: Supplemental ranges: <110 mg/dL before meals <200 mg/dL all other times of the day Blood specimen (specimen) 01/01/2012 12:02 PM EST 01/01/2012 12:02 PM EST Andi Rene MD POINT OF CARE TEST O RDERABLES Performing Organization Address [facility] Co de Phone Number [facility] * (ABNORMAL) APTT (01/01/2012 11:59 AM EST) Partial Thromboplastin Time 108(H) 25 - 35 sec [facility] Comment: Recommended therapeutic PTT range for full dose unfractionated heparin is 80-114 seconds. Blood specimen (specimen) 01/01/2012 11:59 AM EST 01/01/2012 12:06 PM EST Narrative Resulting Agency Comment Spec In Lab Andi Rene MD HEMATOLOGY ORDERABLE S Performing Organization Address [facility] Co de Phone Number [facility] * XR chest routine PA & [...] 0.07(H) 0.00 - 0.05 x10(3)/mc L [facility] ROBY[facility]NI[facility] Blood specimen (specimen) 01/01/2012 5:19 AM EST [...] Remigio Ceron MD HEMATOLOGY ORDERABLE S [facility]ILL[facility] * (ABNORMAL) BMP w/fasting Glucose (01/01/2012 [...] of Diabetes Mellitus, Position Statement from the [place] [employer]. ??Diabetes Care, Volume 33, Supplement [...] In Lab Andi Rene MD CHEMISTRY ORDERABLES [facility] * (ABNORMAL) CBC (with Diff) (01/01/2012 5:19 [...] Hemoglobin Concentration 34.4 32.0 - 36.5 gm/dL [facility] Platelet 219 145 - 370 x10(3)/mc L [facility]ER MILLENNIUM RDW Standard Deviation 42.4 35.0 - 46.0 fL [facility] MILLENNIUM RDW coefficient of variation 13.1 10.9 - 14.4 % [facility] MILLENNI[facility] Mean Platelet Volume 10.1 9.0 - 12.0 fL [facility] Blood specimen (specimen) 01/01/2012 5:19 AM EST 01/01/2012 5:36 AM EST Narrative Resulting Agency Comment Spec In Lab Remigio Ceron MD HEMATOLOGY ORDERABLE S Performing Organization Address [facility] Co de Phone Number [facility] * (ABNORMAL) APTT (12/31/2011 11:01 PM EST) Partial Thromboplastin Time 72(H) 25 - 35 sec [facility] Comment: Recommended therapeutic PTT range for full dose unfractionated heparin is 80-114 seconds. Blood specimen (specimen) 12/31/2011 11:01 PM EST 12/31/2011 11:18 PM EST Narrative Resulting Agency Comment Spec In Lab Andi Rene MD HEMATOLOGY ORDERABLE S Performing Organization Address [facility] de Phone Number [facility] * Upper Respiratory Culture Throat (12/31/2011 9:55 PM EST) Upper Respiratory Culture ? Patient Name: ZACK REYNA., GEOVANNA P ? Ordered By: ANDI RENE ? MR#: [id number] ?LOC: ??[facility] ? /Sex: ??1975 (36 years), ? Male ? PROCEDURE: Upper Respiratory Culture ?SOURCE: Throat ? COLLECTED: 12/31/2011 21:55 ? STARTED: 12/31/2011 22:16 ? FINAL REPORT ? Final Report ? Verified:2011 08:12 ? Beta Hemolytic Streptococci, Group A isolated ? PRELIMINARY REPORT ? Preliminary Report ? Verified:2011 09:46 ? Beta Hemolytic Streptococci, Group A isolated ? [facility] Specimen from throat (specimen) 12/31/2011 9:55 PM EST 12/31/2011 10:16 PM EST Narrative Resulting Agency Comment Spec In Lab Andi Rene MD MICROBIOLOGY - GENER AL ORDERABLES Performing Organization Address [facility] de Phone Number [facility] * (ABNORMAL) APTT (12/31/2011 4:34 PM EST) Partial Thromboplastin Time 66(H) 25 - 35 sec [facility] Comment: Recommended therapeutic PTT range for full dose unfractionated heparin is 80-114 seconds. Blood specimen (specimen) 12/31/2011 4:34 PM EST 12/31/2011 4:39 PM EST Narrative Resulting Agency Comment Spec In Lab Andi Rene MD HEMATOLOGY ORDERABLE S Performing Organization Address [facility] de Phone Number [facility] * Duplex Study for DVT, Bilat legs (12/31/2011 11:07 AM EST) VB Text Report Department: Vascular Surgery Lab Patient: [id number] (ZACKGEOVANNA Bauer) CPT Code: 67225 ICD-9: 780.6 Referring Physician: ANDI RENE Indication: [...] Rene MD VASCULAR ORDERABLES Performing Organization Address City/State/[facility] Co de Phone Number [id number] * SMEAR REVIEW REPORT (12/31/2011 10:39 AM EST) Smear Review Report ? [facility] ? Provider: ?? ANDI RENE ?Pt. Name: ?? GEOVANNA DIXON JR ? Acc #: ?[id number] ? Pt. ? Col Date: ?? 12/31/2011 [...] Narrative Resulting Agency Comment Spec In Lab Anid Rene MD HEMATOLOGY ORDERABLE S [facility] MILLENNIUM [...] Hemoglobin Concentration 33.9 32.0 - 36.5 gm/dL [facility] Platelet 236 145 - 370 x10(3)/mc L [facility]ER MILLENNI[facility] RDW Standard Deviation 42.7 35.0 - 46.0 fL [facility] MILLENNI[facility] RDW coefficient of variation 13.1 10.9 - 14.4 % [facility] MILLENNIUM Mean Platelet Volume 10.4 9.0 - 12.0 fL [facility] Blood specimen (specimen) 12/31/2011 9:44 AM EST 12/31/2011 10:12 AM EST Narrative Resulting Agency Comment Spec In Lab Andi Rene MD HEMATOLOGY ORDERABLE S [facility] * Lactate Dehydrogenase (12/31/2011 9:44 AM EST) Lactate Dehydrogenase 123 110 - 220 unit/L [facility] Blood specimen (specimen) 12/31/2011 9:44 AM EST 12/31/2011 10:12 AM EST Narrative Resulting Agency Comment Spec In Lab Andi Rene MD CHEMISTRY ORDERABLES [facility] * Peripheral Smear Review (12/31/2011 9:44 AM EST) Peripheral Smear Review See Comment [facility] Comment: When completed by the Pathologist, report [id number] will display under Hematology Reports. Blood specimen [...] Absolute 0.08(H) 0.00 - 0.05 x10(3)/mc L [facility] Blood specimen (specimen) 12/31/2011 3:38 AM EST 12/31/2011 3:50 AM EST Remigio Ceron MD HEMATOLOGY ORDERABLE S Performing Organization Address [facility] de Phone Number [facility] * (ABNORMAL) APTT (12/31/2011 3:38 AM EST) Partial Thromboplastin Time 47(H) 25 - 35 sec [facility] Comment: Recommended therapeutic PTT range for full dose unfractionated heparin is 80-114 seconds. Blood specimen (specimen) 12/31/2011 3:38 AM EST 12/31/2011 3:50 AM EST Narrative Resulting Agency Comment Spec In Lab Andi Rene MD HEMATOLOGY ORDERABLE S Performing Organization Address [facility] de Phone Number [facility] * (ABNORMAL) BMP w/fasting Glucose (12/31/2011 3:38 AM EST) Glucose Fasting 114(H) 65 - 99 mg/dL [facility] Comment: ?Fasting* Glucose Interpretive Criteria Normal [...] of Diabetes Mellitus, Position Statement from the [place] Diabetes Association. ??Diabetes Care, Volume 33, Supplement [...] Lab Andi Rene MD HEMATOLOGY ORDERABLE S JILLIANNER MILLENNI[facility] * EKG 12 Lead (12/30/2011 5:24 PM EST) Ventricular rate 107 BPM MUSE SYSTEM Atrial Rate 107 BPM MUSE SYSTEM P-R Interval 160 ms MUSE SYSTEM QRS Duration 104 ms MUSE SYSTEM Q-T Interval 310 ms MUSE SYSTEM QTC Calculated (Bezet) 413 ms MUSE SYSTEM Calculated P Hemet 24 degrees MUSE SYSTEM Calculated R Hemet 25 degrees MUSE SYSTEM Calculated T Hemet 54 degrees MUSE SYSTEM INTERPRETATION Sinus tachycardia [...] PM EST) Blood Culture ? Patient Name: GEOVANAN DIXON JR ?Ordered By: ANDI RENE ? MR#: [id number] ?LOC: ??[facility] ? /Sex: ??1975 (36 years), ? Male ? PROCEDURE: Blood Culture ?SOURCE: Blood ? COLLECTED: 12/30/2011 17:04 ?FREE TEXT SOURCE: LAC ? STARTED: 12/30/2011 17:31 ? FINAL REPORT ? Final Report ? Verified:2011 15:07 ? No growth at 5 days. ? PRELIMINARY REPORT ? Preliminary Report ? Verified:2011 23:07 ? No growth at 4 days. ? [facility]AN MILLENNIUM Blood specimen (specimen) 12/30/2011 5:04 PM EST 12/30/2011 5:31 PM EST Narrative Resulting Agency Comment Spec In Lab Andi Rene MD MICROBIOLOGY - BLOOD ORDERABLES [facility] * Blood culture (12/30/2011 4:51 PM EST) Blood Culture ? Patient Name: GEOVANNA DIXON JR ?Ordered By: ANDI RENE ? MR#: [id number] ?LOC: ??[facility] ? /Sex: ??1975 (36 years), [...] 4:25 PM EST) Ab Screen Interp Negative CERBRIAN CAENNIUM Expires at [id number] on: [id number] CERBRIAN MILLENNIUM Blood specimen (specimen) 12/30/2011 4:25 PM EST 12/30/2011 4:36 PM EST Narrative Resulting Agency Comment Spec In Lab Andi Rene MD BLOOD BANK LAB ORDER RANDELL Performing Organization Address City/[facility]/ZIP Co de Phone Number ARIAN CERDAIUM * ABO/RH TYPING (12/30/2011 4:25 PM EST) ABORH Type A Pos CERBRIAN CAENNIUM Blood specimen (specimen) 12/30/2011 4:25 PM EST 12/30/2011 4:36 PM EST Narrative Resulting Agency Comment Spec In Lab Andi Rene MD BLOOD BANK LAB ORDER RANDELL [facility] * Glucose, random (12/30/2011 4:25 PM EST) [...] S Performing Organization Address [facility] Co de Phone Number ARIAN NELSON * Cardiac Enzymes (12/30/2011 2:08 PM EST) Troponin-T 0.03 <=0.03 ng/mL [facility] Comment: 0.03 ng/mL: Represents the 99th [...] consensus document of the Joint Society of Cardiology/[place] College of Cardiology Committee for the redefinition of myocardial infarction. Journal of the [place] College of [employer]iology 2000; 36: 959-969] Creatine Kinase 72 0 - 200 unit/L [facility] NELSON Blood specimen (specimen) 12/30/2011 2:08 PM EST 12/30/2011 2:27 PM EST Narrative Resulting Agency Comment Spec In Lab Remigio Ceron MD CHEMISTRY ORDERABLES Performing Organization Address [facility] Co de Phone Number ARIAN NELSON * HIV (12/30/2011 10:18 AM EST) Pathologist [facility] HIV 1/2 Ab Negative ARIAN NELSON Blood specimen (specimen) 12/30/2011 10:18 AM EST 12/30/2011 10:28 AM EST Narrative Resulting Agency Comment Spec In Lab Andi Melchor Anju DE CHEMISTRY ORDERABLES [facility] NELSON * Echo Transthoracic (Complete) (12/30/2011 9:47 AM EST) EF 55 [facility]ART[facility] SYSTEM Anatomical Region Laterality Modality Other 12/30/2011 Narrative 12/30/2011 10:02 AM EST Procedure: ? Transthoracic Echocardiogram Patient: ? ZACK AUSTIN P ?(Age): 1975(36) Med Rec#: ?[id number] ? Sex: ?M ? Site Loc: ?[facility] ? Ht / Wt: ??180(cm)/124(kg) Pt. Loc: ? Adult Floor ?BSA: ?2.41 Study Date: ?12/30/2011 ? Pt. Type: Inpatient Tape: ? Referring: Remigio Ceron Information Technology Specialist: Benjamin Lundberg Diagnosis: ??Chest pain (786.50) CPT Code(s): ??Spectral Doppler (80349), ??Color Doppler (64808), ??Echo Full (30132), Indication(s): ??Chest Pain Rhythm: HR ?BP ?106/60 [...] 12/30/2011 10:01:28 Images reviewed and interpretation verified [facility] Cardiac Ultrasound Laboratory Procedure Note Zak Coley MD - 12/30/2011 Procedure: Transthoracic Echocardiogram Patient: ZACK Llanos DOB(Age): 1975(36) Med Rec#: [id number] Sex: M Site Loc: [facility] Ht / Wt: 180(cm)/124(kg) Pt. Loc: Adult Floor BSA: 2.41 Study Date: 12/30/2011 Pt. Type: Inpatient Tape: Referring: OlvineamonantioneRemigio wu Information Technology Specialist: Benjamin Lundberg Diagnosis: Chest pain (786.50) CPT Code(s): Spectral Doppler (65708), Color Doppler (96726), Echo Full (39605), Indication(s): Chest Pain Rhythm: HR BP 106/60 [...] 12/30/2011 10:01:28 Images reviewed and interpretation verified [facility] Cardiac Ultrasound Laboratory Remigio Ceron MD ECHO [...] Urine Dipstick Clear Clear CERNER MILLENNIUM Specific [place] Urine Automated 1.019 1.002 - 1.030 CERNER [...] Lab Andi Rene MD URINE ORDERABLES [facility] * Rapid Qual Drug Screen, Urine ([facility]) (12/30/2011 9:32 AM EST) U IVAN Screen See Note [facility]AN [facility] Comment: Urine drug of abuse [...] testing device is being used in the [facility] Chemistry Laboratory. Please contact the chemistry laboratory at [phone] with questions. Urine specimen (specimen) 12/30/2011 9:32 AM EST 12/30/2011 9:45 AM EST Narrative Resulting Agency Comment Spec In Lab Andi Rene MD URINE ORDERABLES Performing Organization Address City/[facility] Co de Phone Number ARIAN CERDAIUM * Urine culture Clean Catch Urine (12/30/2011 9:31 AM EST) Urine Culture ? Patient Name: ZACK REYNA, GEOVANNA Llanos ?Ordered By: ANDI RENE ? MR#: [id number] ?LOC: ??[facility] ? /Sex: ?? 4 (36 [...] - GENER AL ORDERABLES Performing Organization Address City/State/[facility] Co de Phone Number ARIAN NELSON * (ABNORMAL) DIFFERENTIAL, AUTOMATED (12/30/2011 7:07 AM [...] HEMATOLOGY ORDERABLE S ARIAN CAENNIUM * (ABNORMAL) CBC (with Diff) (12/30/2011 7:07 AM EST) White Blood Cell 22.1(H) 4.0 - 10.0 x10(3)/mc L CERNER MILLENNIUM Red Blood Cell 4.54(L) 4.63 - 6.08 x10(6)/mc L CERNER MILLENNIUM Hemoglobin 13.6(L) 13.7 - 17.5 gm/dL CERNER MILLENNIUM Hematocrit 40.3 40.0 - 51.0 % CERNER MILLENNIUM Mean Cell Volume 88.8 79.0 - 92.0 fL ARIAN CAENNIUM Mean Cell Hemoglobin 30.0 25.6 - 32.2 [...] A1c 6.1 4.3 - 6.1 % ARIAN CERDAIUM Estimated Average Glucose 128 mg/dL [facility] Comment: eAG equivalents for HbA1c percentages: HbA1c(%) [...] into estimated average glucose values. ??Diabetes Care 2008:31(8):1836-2644. Blood specimen (specimen) 12/30/2011 7:07 AM EST 12/30/2011 7:18 AM EST Narrative Resulting Agency Comment Spec In Lab Remigio Ceron MD CHEMISTRY ORDERABLES Performing Organization Address [facility] Co de Phone Number [facility] [employer] [facility] * (ABNORMAL) APTT (12/30/2011 5:45 AM EST) Partial Thromboplastin Time 45(H) 25 - 35 sec [facility] Comment: Recommended therapeutic PTT range for full dose unfractionated heparin is 80-114 seconds. Blood specimen (specimen) 12/30/2011 5:45 AM EST 12/30/2011 6:10 AM EST Narrative Resulting Agency Comment Spec In Lab Andi Rene MD HEMATOLOGY ORDERABLE S Performing Organization Address [facility] de Phone Number [facility] [employer] [facility] * (ABNORMAL) Glucose, fasting (12/30/2011 5:45 AM EST) Glucose Fasting 108(H) 65 - 99 mg/dL [facility] Comment: ?Fasting* Glucose Interpretive Criteria Normal [...] of Diabetes Mellitus, Position Statement from the [place] Diabetes Association. ??Diabetes Care, Volume 33, Supplement 1, Nov 2009 Blood specimen (specimen) 12/30/2011 5:45 AM EST 12/30/2011 6:10 AM EST Narrative Resulting Agency Comment Spec In Lab Remigio Ceron MD CHEMISTRY ORDERABLES Performing Organization Address City/[facility] Co de Phone Number [facility] [employer] [facility] * (ABNORMAL) Triglyceride (12/30/2011 5:45 AM EST) Triglyceride 245(H) <=149 mg/dL [facility] [employer] [facility] Comment: Reference Range: Normal triglycerides: ??<150 mg/dL Borderline high: ??150-199 mg/dL High: ??200-499 mg/dL Very high: ??>zp=554 mg/dL ELISEO 2001; 28519):[id number] Blood specimen (specimen) 12/30/2011 5:45 AM EST 12/30/2011 6:10 AM EST Narrative Resulting Agency Comment Spec In Lab Remigio Ceron MD CHEMISTRY ORDERABLES Performing Organization Address [facility] Co de Phone Number [facility] [employer] [facility] * (ABNORMAL) HDL/Cholesterol Profile (12/30/2011 5:45 AM EST) Cholesterol, Total 170 <=199 mg/dL [facility] [employer] [facility] Comment: Recommendations of the NCEP Adult Treatment Panel for the following risk cutoff thresholds for the [place] population: Desirable: <200 mg/dL Borderline High: 200-239 mg/dL High: > or = 240 mg/dL HDL Cholesterol 36(L) >=40 mg/dL [facility] Comment: Reference range: ??Low HDL: ?? < 40 mg/dL ??Normal: ?40-60 mg/dL ??Desirable: > 60 mg/dL ELISEO 2001; 285(19):1485-0304 Cholesterol/HDL Ratio 4.7 ratio [facility] Comment: A Cholesterol to HDL ratio below 4:1 is desirable. ??Studies suggest that increased CAD risk occurs at ratios above 5 for females and above 6 for men. ? [place] [employer] Association ??(http://www.americanheart.org) ? Jazmine Int Med, 1994; 121:641 ? AM J Med, 1998; 105(1A):48S Blood specimen (specimen) 12/30/2011 5:45 AM EST 12/30/2011 6:10 AM EST Narrative Resulting Agency Comment Spec In Lab Remigio Ceron MD CHEMISTRY ORDERABLES Performing Organization Address [facility] Co de Phone Number [facility] * (ABNORMAL) LDL Cholesterol, Direct (12/30/2011 5:45 AM EST) LDL Cholesterol, Direct 110(H) <=99 mg/dL [facility] Comment: The National Cholesterol Education Program (NCEP) has set the following guidelines for LDL Cholesterol: Reference range: ?? Optimal: ?<100 mg/dL ?? Near Optimal/Above Optimal: ?? 100-129 mg/dL ?? Borderline high: ?130-159 mg/dL ?? High: ? 160-189 mg/dL ?? Very high: ?>or=511 mg/dL ELISEO 2001: 285(19):5594-2280 Blood specimen (specimen) 12/30/2011 5:45 AM EST 12/30/2011 6:10 AM EST Narrative Resulting Agency Comment Spec In Lab Remigio Ceron MD CHEMISTRY ORDERABLES Performing Organization Address City/[facility] Co de Phone Number ARIAN NELSON [...] consensus document of the Joint Society of Cardiology/[place] College [employer] Cardiology Committee for the redefinition of myocardial infarction. Journal of the [place] College [employer]iology 2000; 36: 959-969] Creatine Kinase 82 0 - 200 unit/L ARIAN NELSON Blood specimen (specimen) 12/30/2011 5:45 AM EST 12/30/2011 6:10 AM EST Narrative Resulting Agency Comment Spec In Lab Remigio Ceron MD CHEMISTRY ORDERABLES Performing Organization Address [facility] Co de Phone Number ARIAN NELSON [...] S CERBRIAN CAENNIUM * (ABNORMAL) Cardiac Enzymes (12/29/2011 11:29 PM [...] consensus document of the Joint Society of Cardiology/[place] [employer] Cardiology Committee for the redefinition of myocardial infarction. Journal of the [place] College [employer]iology 2000; 36: 959-969] Creatine Kinase 86 0 - 200 unit/L CERNER MILLENNIUM Blood specimen (specimen) 12/29/2011 11:29 PM EST 12/29/2011 11:34 PM EST Narrative Resulting Agency Comment Spec In Lab Remigio Ceron MD CHEMISTRY ORDERABLES Performing Organization Address [facility] Co de Phone Number ARIAN CAENNIUM * Prothrombin Time (12/29/2011 11:29 PM EST) Prothrombin Time 13.2 11.9 - 14.7 sec CERNER MILLENNIUM Comment: [facility] Transfusion Committee Guidelines: INR less than [...] S Performing Organization Address [facility] de Phone Number CERBRIAN CAENNIUM * Hepatic [...] Ceron MD CHEMISTRY ORDERABLES Performing Organization Address [facility] Co de Phone Number ARIAN CERDAIUM * TSH (12/29/2011 11:29 PM EST) Thyroid Stimulating Hormone 0.39 0.27 - 4.20 mcIU/mL ARIAN CERDAIUM Blood specimen (specimen) 12/29/2011 11:29 PM EST 12/29/2011 11:34 PM EST Narrative Resulting Agency Comment Spec In Lab Remigio Ceron MD CHEMISTRY ORDERABLES Performing Organization Address [facility] Co de Phone Number ARIAN CERDAIUM * Phosphorus (12/29/2011 11:29 PM EST) Phosphorus 3.1 2.5 - 4.5 mg/dL [facility] Blood specimen (specimen) 12/29/2011 11:29 PM EST 12/29/2011 11:34 PM EST Narrative Resulting Agency Comment Spec In Lab Remigio Ceron MD CHEMISTRY ORDERABLES Performing Organization Address [facility] Co de Phone Number ARIAN CERDAIUM * Magnesium (12/29/2011 11:29 PM EST) Magnesium 0.83 0.69 - 1.07 mmol/L CERBRIAN CERDAIUM Blood specimen (specimen) 12/29/2011 11:29 PM EST 12/29/2011 11:34 PM EST Narrative Resulting Agency Comment Spec In Lab Remigio Ceron MD CHEMISTRY ORDERABLES ARIAN CAENNIUM * (ABNORMAL) Basic Metabolic Panel (non-fasting) [...] Remigio Ceron MD HEMATOLOGY ORDERABLE S ARIAN ROBYENNIUM * APTT (12/29/2011 11:29 PM EST) Partial Thromboplastin Time 34 25 - 35 sec [facility] Comment: Recommended therapeutic PTT range for full dose unfractionated heparin is 80-114 seconds. Blood specimen (specimen) 12/29/2011 11:29 PM EST 12/29/2011 11:34 PM EST Narrative Resulting Agency Comment Spec In Lab Remigio Ceron MD HEMATOLOGY ORDERABLE S Performing Organization Address City/[facility] Co de Phone Number [facility] * EKG 12 Lead (12/29/2011 11:13 PM EST) Ventricular rate 108 BPM MUSE SYSTEM Atrial Rate 108 BPM MUSE SYSTEM P-R Interval 150 ms MUSE SYSTEM QRS Duration 106 ms MUSE SYSTEM Q-T Interval 340 ms MUSE SYSTEM QTC Calculated (Bezet) 455 ms MUSE SYSTEM Calculated P Hemet 19 degrees MUSE SYSTEM Calculated R Hemet 31 degrees MUSE SYSTEM Calculated T Hemet 51 degrees MUSE SYSTEM INTERPRETATION Sinus tachycardia Nonspecific T wave abnormality Abnormal ECG No previous ECGs available Confirmed by Madi FORD MD, Saulo ([id number]) on 12/30/2011 2:22:07 PM MUSE SYSTEM 12/29/2011 11:1 3 PM EST 12/30/2011 2:22 PM EST Remigio Ceron MD ECG ORDERABLES Performing Organization Address 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 Coronary artery disease Coronary atherosclerosis of unspecified type of vessel, tuscarora or graft documented in this encounter Administered [...] dose on Wed01/04/12 at 2100, Until Discontinued, [place] teeth., Routine Given 01/05/2012 9:00 AM EST [...] than 145 sec X 2 - call housemaid See Bolus dosing guidance for aPTT values [...] than 145 sec X 2 - call housemaid See Bolus dosing guidance for aPTT values [...] than 145 sec X 2 - call housemaid See Bolus dosing guidance for aPTT values [...] (after last modification) on Angelita 01/07/12 at 2100, Until Discontinued, Routine Given 01/08/2012 [...] BP less than 90 mmHg . Call housemaid for additional fluid orders: pager #[phone]. Rate/Dose Verify 01/05/2012 2:00 AM EST 125 [...] RN) 314 (Given - Provider: Hermila Dumas RN)111 (Given - Provider: Michelle Chong RN)2000 (Given [...] Provider: Hermila Dumas RN)0920 (Given - Provider: Micehlle Chong RN)1313 (Given - Provider: Annabella Gonzales)1725 (Given - Provider: Michelle Chong, DAVID)2039 (Given - Provider: Hermila Dumas RN)2359 (Given - Provider: Hermila Dumas RN) 0300 (Given - Provider: Hermila Dumas RN)0605 (Given - Provider: Hermila Dumas RN)0916 (Given - Provider: Michelle Chong RN)1623 (Given - Provider: Michelle Chong RN)1999 (Given - Provider: Hermila Dumas RN)2352 (Given [...] Routine documented in this encounter Care Teams Activities Aide Relationship Specialty Start Date End Date Patric Al MD PCP - General 12/29/11 02/26/19 documented as of this encounter
--- OUTSIDE RECORDS SUMMARY | 2024-10-31 15:46 | XMS_ITS | Encounter Summary ---
Author Organization [facility] [place] [address] Care Team Providers Care Timber Supervisor Name Role Phone Guanako Gusman MD Primary Care Provider [phone] Encounter Details Date Type Department Care Team (Late st Contact Info) Description 01/04/2012 [place] [phone] Unknown None Social History Tobacco Use Types [...] PM EST Office [place] [phone] Isabela Hayward, DYE JIG OPERATOR [facility] [place] [address] 11/10/2024 10:00 AM EST Office [place] [phone] Dai Whitman APRN 11/21/2024 2:15 PM EST Office [place] [address] Dayanara Grover MD [facility] [place] [address] documented as of this encounter Procedures Procedure Name Priority Date/Time Associated Diagnosis Comments TRANSESOPHAGEAL ECHOCARDIOGRAM (HELEN) Routine 01/04/2012 documented in this encounter Results * TRANSESOPHAGEAL ECHOCARDIOGRAM (HELEN) (01/04/2012) Anatomical Region Laterality Modality Other 01/04/2012 Narrative 01/04/2012 3:49 PM EST Procedure: ? Transesophageal Echocardiogram Patient: ? QUIANA AUSTIN P ?(Age): () ? Med Rec#: ?[id number] ? Sex: ? Site Loc: ? Ht / Wt: ??(cm)/(kg) ? Pt. Loc: ?BSA: ? Study Date: ?01/04/2012 ? Pt. Type: Tape: ? Referring: BASILIO Referring: Alfonso Morales Reading: Rodrigo Montgomery ([id number]) Performing: Rodrigo Montgomery ([id number]) Technical Testing Engineer: KEVIN Diagnosis:CPT Code(s): Indication(s):Rhythm: SUMMARY: 1. Intraoperative [...] ? Mid-Inferior ?Normal ? Mid-Inferoseptal ?Normal ? Carnegie-Septal ? Normal ? Carnegie-Anterior ? Normal ? Carnegie-Lateral ?Normal ? Carnegie-Inferior ? Normal ? Carnegie-Tip ?Normal ? Chambers ?Value ?Units (Range) ? LV EF Est ? 60 ? % (55 to 80) ? This report has been electronically signed by: Rodrigo Montgomery MD ? 01/04/2012 15:48:22 Images reviewed and interpretation verified [facility] Cardiac Ultrasound Laboratory Procedure Note Unknown - 01/04/2012 Procedure: Transesophageal Echocardiogram Patient: QUIANA MILLIGAN(Age): () Med Rec#: [id number] Sex: Site Loc: Ht / Wt: (cm)/(kg) Pt. Loc: BSA: Study Date: 01/04/2012 Pt. Type: Tape: Referring: BASILIO Referring: Alfonso Morales Reading: Rodrigo Montgomery ([id number]) Performing: Rodrigo Montgomery ([id number]) Technical Testing Engineer: KEVIN Diagnosis:CPT Code(s): Indication(s):Rhythm: SUMMARY: 1. Intraoperative [...] Normal Mid-Posterolateral Normal Mid-Inferior Normal Mid-Inferoseptal Normal Carnegie-Septal Normal Carnegie-Anterior Normal Carnegie-Lateral Normal Carnegie-Inferior Normal Carnegie-Tip Normal Chambers Value Units (Range) LV EF Est 60 % (55 to 80) This report has been electronically signed by: Rodrigo Montgomery MD 01/04/2012 15:48:22 Images reviewed and interpretation verified [facility] Cardiac Ultrasound Laboratory Unknown ECHO ORDERABLES documented in this encounter Visit Diagnoses Not on filedocumented in this encounter Care Teams Timber Supervisor Relationship Specialty Start Date End Date Guanako Gusman MD PCP - General 12/29/11 02/26/19 documented as of this encounter
--- OUTSIDE RECORDS SUMMARY | 2024-10-31 15:47 | XMS_ITS | Encounter Summary ---
Author Organization [facility] Address [facility] [place] [address] Care Team Providers Care Tmh Teacher Name Role Phone Guanako Gusman MD Primary Care Provider [phone] Encounter Details Date Type Department Care Team (Late st Contact Info) Description 01/01/2012 11:59 PM EST Anesthesia Event [place] [address] Reny Melchor MD [facility] [address] CRITICAL [place] [address] Anesthesia Record Procedure Summary Procedure Name Responsible [...] OR Notes * Anesthesia Preprocedure Evaluation - RuizReny Jazmín - 12/31/2011 5:51 PM EST Anesthesia Evaluation No hx of anesthetic complications Airway Mallampati: II TM distance: >3 FB Neck ROM: full Dental Comment: No loose teeth, multiple chipped teeth Pulmonary (+) recent URI, (-) pneumonia, COPD and asthma ROS comment: +TOB Cardiovascular (+) hypertension, past [place], CAD, angina, [place], (-) CHF ROS comment: [...] PM EST Office Visit Infectious Disease at [place] [phone] Isabela Hayward, WELL SERVICE PUMP EQUIPMENT OPERATOR [facility] [place] [address] 11/10/2024 10:00 AM EST Office [place] [address] Dai Whitman APRN 11/21/2024 2:15 PM EST Office [place] [address] Dayanara Grover MD [facility] [place] [address] documented as of this encounter Visit Diagnoses Not on filedocumented in this encounter Care Teams Tmh Teacher Relationship Specialty Start Date End Date Guanako Gusman MD PCP - General 12/29/11 02/26/19 documented as of this encounter
--- OUTSIDE RECORDS SUMMARY | 2024-10-31 15:47 | XMS_ITS | Encounter Summary ---
Author Organization [facility] [place] [address] Care Team Providers Care Ceramist Name Role Phone Guanako Gusman MD Primary Care Provider [phone] Encounter Details Date Type Department Care Team (Late st Contact Info) Description 12/31/2011 2:00 PM EST Office [place] [address] Dai Iglesias, [place] Social History Tobacco Use [...] PM EST Office [place] [address] Isabela Hayward, RESHMA [facility] [place] [address] 11/10/2024 10:00 AM EST Office [place] [phone] Dai Whitman APRN 11/21/2024 2:15 PM EST Office [place] [address] Dayanara Grover MD [facility] [place] [address] documented as of this encounter Visit Diagnoses Not on filedocumented in this encounter Care Teams Ceramist Relationship Specialty Start Date End Date Guanako Gusman MD PCP - General 12/29/11 02/26/19 documented as of this encounter
--- OUTSIDE RECORDS SUMMARY | 2024-10-31 15:47 | XMS_ITS | Encounter Summary ---
[place] [address] Care Team Providers Care Customer Support Technician Name Role Phone Patric Al MD Primary Care Provider [phone] Encounter Details Date Type Department Care Team (Late st Contact Info) Description 01/04/2012 12:18 PM EST - 01/04/2012 4:46 PM EST [place] [id number] Inna Tovar MD ENDOSCOPIC HARVEST VEIN(S) FOR CABG (WRVU 0.31) [...] 12:11 PM EST Geovanna Dixon Jr. 1975 [id number] New Diagnosis of Pre-Diabetes For discharge should [...] Some considerations about using metformin in Prediabetics: [place] Diabetes Prevention Program (DPP) as well as other minor studies and meta-analyses has convincingly demonstrated the efficacy of metformin in this patient group [pre-diabetics]. In addition, results of the 10 year DPP follow up have recently been published, demonstrating the adjunct faculty for medical terminology safety and sustainability of metformin treatment benefits [...] resistance with tobacco use. Darcie Lange APRN [facility] Endocrinology Diabetes Management [phone] * Patient Instructions* Ricky Graham PA - [...] Anne Tovar and/or the Cardiothoracic Surgery Physician Weather Clerk Team may be reached at . Activity [...] Dr. Inna Tovar. You may use a [place] Track or treadmill but avoid any pulling [...] friends, go to a movie, go to hindu, etc. Heavy activities: No hunting, skiing, jogging, [...] would be to continue to go [place]. He has quit this way before and [...] only 10% of those who quit [place] are able to be successful. The calculated savings once he quits smoking would be $54 a week, $234 a month, and $2803 a year. If he quits now his savings will be $28,030 in 10 years. The patient was provided with a [facility] Smoking Cessation packet and the contents have [...] given to patient. Discharge summary faxed to [facility] and receipt confirmed via phone. Patient [...] basis Equipment needs: none ADEBAYO Cunningham GARRETT, PLANNED GIVING OFFICER Pager: [phone] Physical Therapy Rehabilitation Department * Michelle Chong [...] services. Patient would like VNA services through [facility]. PHONE: [phone] FAX: [phone]. Referral made via E-discharge. Please see home care orders that must be included in discharge summary for VN services to start. Patient has glucometer and supplies at bedside. Pt. Denies any further needs from [facility]. Pt. Gets scripts through [place] Medicaid with co-pay. He denies any concerns related to co-pay. * Darcie Lange APRN - 01/07/2012 9:57 AM EST Geovanna Dixon Jr. 1975 [id number] PATRIC AL MD Follow Up Diabetes Consult [...] Some considerations about using metformin in Prediabetics: [place] Diabetes Prevention Program (DPP) as well as other minor studies and meta-analyses has convincingly demonstrated the efficacy of metformin in this patient group [pre-diabetics]. In addition, results of the 10 year DPP follow up have recently been published, demonstrating the jail safety and sustainability of metformin treatment benefits [...] sensitive Novolog correction only Darcie Lange APRN [facility] Endocrinology Diabetes Management [phone] Pager [phone] This case was discussed with Dr. Christina Brody. 25 min time spent in patient care with 20 counseling, seeing patient, changing orders and discussion with the patient and the primary team as well as nursing. * Inna Tovar MD - 01/07/2012 9:39 AM EST Cardiac Surgery Progress Note: ID: [id number] 36/M POD #[address] Tovar [...] results found for this basename: phart, po2art, [id number] Assessment/Plan: Pathway. Neuro: ambulating on own per [...] home. (ie take out the trash or diamond picker his child) Objective:Pt was seen today [...] interventions: 30 minutes NAM TRINIDAD PT Pager: [phone] Physical Therapy Rehabilitation Department * Vibha Martines [...] CABG performed by INNA TOVAR at [facility] MAIN OR ??? Cabg, artery-vein, single 01/04/2012 @CABG, VENOUS & ARTERIAL GRAFT;SINGLE VEIN GRAFT performed by INNA TOVAR at [facility] MAIN OR Outpatient prescriptions marked [...] yes Date: 12/29/11 Why then: Admission to [facility] What will be different this time: Just [...] in places where it is forbidden ex hindu No Yes 0 3. Which cigarette would [...] would be to continue to go [place]. He has quit this way before and it lasted several years, so he has a history of being successful with this method. He also pointed out that his father and an uncle quit (for now over 10 years) by going [place]. I told him that it is difficult to recommend a quit method that has a 90% failure rate, but that said, it is his choice and that I would provide him with a toolkit of information so that he will be as knowledgeable as possible about nicotineaddiction and how to stay quit. And we do know that 10% of those who quit [place] are able to be successful. I calculated and shared with him that his savings once he quits smoking would be $54 a week, $234 amonth, and $2803 a year. If he quits now his savings will be $28,030 in 10 years. The patient has also been provided with a [facility] Smoking Cessation packet and the contents have been reviewed with him. The patient now has the Quit line number for [place] and has also been encouraged to use this if needed for support. In addition he was in agreement with a referral to the [place] Quitnetworkand I have FAXed a referral to [...] Nutrition Intervention: Hospital Day 9 Diet Order: [facility] Appetite: fair Food allergies: none Chewing/Swallowing difficulty: none Height: (cm) 180.3 Weight: (kg) 127.9 01/06/12 Wt hx: (kg) 124.5 12/29/11 BMI: 38.4 Education: [facility] dietary guidelines. Tips To Better Food Intake (Protein) dietary guidelines. Verbalized good understanding. Education material, with means of contact provided. Assessment: Patient verbalized good understanding of protein needs for healing as well as [facility] Heart Healthy guidelines. I have added high protein snacks between meals and CIB shakes to meal trays for extra protein/nutrition. Nutrition Plan: Diet: [facility] Recommend Daily Multi Vitamins. Added high protein snacks. CIB w/skim milk shakes three times per day. Encourage good po intake. Monitor weight. Support and encouragement provided. Nutrition services to follow weekly thru hospital course unless consulted in the interim. ACOSTA SMALL * Inna Tovar MD - 01/06/2012 1:50 PM EST Cardiac Surgery In Patient Progress Note Patient Name: Geovanna Dixon Jr. : [id number] MR#: [id number] Admitted: 12/29/2011 Hospital Day 8 days Problem [...] Subjective and 24 hr events: -[facility] - No BM - Pain about [...] Hamlin RN - 01/06/2012 10:11 AM EST [facility] CARDIAC REHABILITATION Geovanna Dixon Jr. was seen today regarding participation in outpatient Phase 2 Cardiac Rehabilitation at [facility] . A referral will be sent to this program. The patient was given contact information and should expect to be contacted by the program within 1-2 weeks after discharge from [facility]. * Kareen Mendoza, PT - 01/05/2012 3:59 [...] CABG performed by INNA TOVAR at [facility] MAIN OR ??? Cabg, artery-vein, single 01/04/2012 @CABG, VENOUS & ARTERIAL GRAFT;SINGLE VEIN GRAFT performed by INNA TOVAR at [facility] MAIN OR Social History: Patient [...] minutes brief evaluation KAREEN MENDOZA, PT Pager: [phone] Physical Therapy Rehabilitation Department * Camille Angulo [...] abx Heme: asa Endo: insulin gtt Dispo: [facility]-->floor Rosie Jones RN - 01/04/2012 3:06 PM EST Initial [...] A: medical plan still evolving. P: This health science writer or colleague from the Office of [...] 0440 01/03/12 0615 01/02/12 0602 12/30/11 1625 12/29/119 ??? NA 135 138 139 -- -- [...] FULL CODE Paola Akers PGY 1 Pager [phone] Attending Addendum: I spoke with the patient and his family briefly this am. I agree with the principal findings. The impression and plan incorporate my input. No contraindication to surgery today. Sarthak Pollard MD [facility] pager [phone] * Sarthak Pollard MD - 01/03/2012 11:08 [...] of aggravating CAD. Sarthak Pollard MD [facility] pager [phone] * Bal John MD - 01/02/2012 3:10 [...] HGB 13.1* 01/01/12 06:37 PM HGB 12.4* 2/24/12 05:19 AM WBC 10.1* 01/02/12 06:02 AM [...] Cristina Ambriz MD PGY1, Internal Medicine Pager [phone] 01/02/2012 Attending Addendum: I have interviewed and examined the patient. I agree with the principal findings. The impression and plan incorporate my input. As above, doing well. Will keep on heparin until surgery. No angina, HF, bleeding, or evidence of HIT. Sarthak Pollard MD [facility] pager [phone] * Inna Tovar MD - 01/01/2012 3:17 PM EST Please see Dr. Major's note from 12/31/11 for full details. Briefly, Mr. Dixon developed unstable angina and ruled in for FL. Cath shows severe 3 vessel disease. Echo [...] mg BID Paola Akers PGY 1 Pager [phone] Attending Addendum: I have interviewed and examined the patient. I agree with the principal findings. The impression and plan incorporate my input. He is disappointed that his surgery has been postponed until Wednesday butunderstands. He remains cp free. I've reviewed his angiograms and believe he needs to stay on heparin until surgery. All questions answered. Sarthak Pollard MD [facility] pager [phone] * Andi Rene MD - 12/31/2011 5:20 [...] for chest pain as a transfer from [facility] - Cardiac cath yesterday showed [...] Hyperlipidemia ??? Depression ??? Narcolepsy ASSESSMENT: Mr. Dxion is a 36 year old man with [...] mg BID Paola Akers PGY 1 Pager [phone] Cardiology Attending Progress Note Addendum: I have [...] would like to attend cardiac rehab at [facility] in [facility]. We will meet him again after [...] Call saucedo within reach, family at bedside. 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 documented in this encounter H&P Notes * [...] Lives on social security in house in [facility] with two children (18 and 4, and one step child) Active pack per day smoker (27pack year history) No etoh No drugs Enjoys riding motorcycles and hunting He is NOT a sikh FHx: Heart disease on both sides of the family Father's side with multiple uncles with FL's, one at age of 40 Mother's side with uncle at age 50 from [place] Diabetes in mother ROS: Positive headache, nausea [...] 13.2 12/29/2011 PTT 31 12/30/2011 Troponins at [facility]: 0.05-->0.03 Imaging: Echo 12/30/11: 1. The left [...] loss were emphasized as they relate to jail patency of his grafts. He should receive smoking cessation counseling donya. One post op consideration will be vent wean and respiratory status given likely underlying CAMILLA and his known narcolepsy. Pre op orders written, heparin gtt to stop urban and regional planner to OR. Pt seen and interviewed with [...] +active 25 pack year smoker comes to [facility] from [facility] for evaluation of intermittent CP since [...] history (both paternal grandparents passing away from [facility] and paternal aunts/uncles with histories of [...] FULL Provider: REMIGIO CERON MD Pager #: [phone] documented in this encounter Procedure Notes * Provider, Scanning - 01/10/2012 1:46 PM ESTAssociated Order(s): SCAN DOC: CARDIOVASCULAR OR NURSE * Provider, Scanning - 01/10/2012 1:46 PM [...] EST * Consult Note - Darcie Lange, SENIOR CARE ASSISTANT - 01/06/2012 3:45 PM EST Geovanna Dixon Jr. 1975 [id number] Inpatient Endocrinology Glucose Management Consult Date of Consultation: 01/06/2012 Place of Consultation: [facility] Consult Requested by: Dr. Tovar, [place] [facility] Reason for Consultation: Geovanna Dixon Jr. is a 36 y.o. male who was admitted on 12/29/2011 for the diagnosis of CAD now s/p CABG x2 with Dr. Tovar, POD #2. We are asked to see him to assist with diabetes management and to provide a review of his jail diabetes plan. Diabetes History: Geovanna Dixon Jr. has NO history of diabetes, + for a family history of diabetes on mother's side and some on father's. Family history is also very significant for coronary artery disease. He stated that he has been tested in the past for diabetes but told that he does have diabetes, uncertain on A1C #. As per [facility] labs last A1C = 6.1% which [...] Diabetes Care: Medications: None Monitoring: None Diet: [facility] Healthy No Known Allergies Past Medical History: [...] considerations about using metformin in Prediabetics: ?? [place] Diabetes Prevention Program (DPP) as well as other minor studies and meta-analyses hasconvincingly demonstrated the efficacy of metformin in this patient group [pre-diabetics]. In addition, results of the 10 year DPP follow up have recently been published, demonstrating the adjunct faculty for medical terminology safety and sustainability of metformin treatment benefits [...] metformin 500 mg QD Darcie Lange APRN [facility] Endocrinology Diabetes Management [phone] Pager [phone] This case was discussed with Dr. Christina [...] Course: Geovanna Dixon Jr. was admitted to [facility] on 12/29/2011 to the cardiologyservice for chest [...] Medications: Geovanna Dixon Jr. Home Medication Instructions CRAIG:[id number] Printed on:01/08/12 1203 Medication Information simvastatin (ZOCOR) 20 mg tablet [...] Anne Tovar and/or the Cardiothoracic Surgery Physician Weather Clerk Team may be reached at . Activity [...] Dr. Inna Tovar. You may use a [place] Track or treadmill but avoid any pulling [...] friends, go to a movie, go to hindu, etc. Heavy activities: No hunting, skiing, jogging, [...] would be to continue to go [place]. He has quit this way before and [...] only 10% of those who quit [place] are able to be successful. The calculated savings once he quits smoking would be $54 a week, $234 a month, and $2803 a year. If he quits now his savings will be $28,030 in 10 years. The patient was provided with a [facility] Smoking Cessation packet and the contents have [...] Some considerations about using metformin in Prediabetics: [place] Diabetes Prevention Program (DPP) as well as other minor studies and meta-analyses has convincingly demonstrated the efficacy of metformin in this patient group [pre-diabetics]. In addition, results of the 10 year DPP follow up have recently been published, demonstrating the jail safety and sustainability of metformin treatment benefits [...] resistance with tobacco use. Darcie Lange APRN [facility] Endocrinology Diabetes Management [phone] Medications: Take only those medications listed on [...] should resume a low fat, low cholesterol, [place] Heart Association Diet. Driving: No driving for [...] in outpatient Phase 2 Cardiac Rehabilitation at [facility] . A referral will be sent to this program. He was given contact information and shouldexpect to be contacted by the program within 1-2 weeks after discharge from [facility]. Arrangements for VNA/home care: PATIENT'S LOCATION: Geovanna Dixon Jr. [address] [place] [address] There is no home phone number on file. Telephone Information: In discussion with the attending physician, it is certified that this patient is under their care and that they, or a nurse practitioner, clinical nurse specialist or physician's video library assistant who is working directly with them, [...] for services as follows: HOME HEALTH AGENCY: [facility]. PHONE: [phone] FAX: [phone] RN orders: Cardiopulmonary assessment, incisional assessment, assess [...] issues please call the Cardiac SurgeryOffice at [phone] FOR MEDICARE ONLY: (please delete this section if not Medicare) In discussion with the attending physician, it is certified that the clinical findings support thatthis patient is homebound (i.e. absences from home require considerable and taxing effort and are for medical reasons or sikhism services of infrequently or of short duration [...] nurse practitioner, clinical nurse specialist or physician's video library assistant who is working directly with them, [...] effort and are for medical reasons or sikhism services of infrequently or of short duration when for other reasons) Please note that any additional orders needs or changes will need to be obtained from this patient's PCP: PATRIC AL MD [phone] All VNA agencies which cover the area of patient's residence have been reviewed, either verbally feli writing, and patient/family have chosen the indicated home health care agency for home services. Comments: Questions: Responses: Agency name and contact information [facility] Patient location post discharge home What services are requested Start date 01/10/2012 Responsible MD post discharge contact info PCP RN to remove chest tube sutures on or after 01/13/12. Signed: Ricky Graham PA-C [facility] Section of Cardiothoracic Surgery Date: 01/08/12 CC: MD [facility] EMERGENCY DEPT [address] [place] [address] [place] [address] * Op Note - Inna Tovar MD - 01/04/2012 3:55 PM EST [facility] Operative Note Patient Name: Geovanna Dixon Jr. : [id number] MR#: [id number] Case Date: 01/04/2012 Surgeon: Surgeon(s) and Role: [...] enlarged. There was diffuse disease in all council vessels. The OFELIA and vein were of excellent quality. The lungs had early emphysematous changes. Procedure Details: The patient was brought to the operating room and given general anesthesia. A Bennington-Haley catheter, radial arterial line, and Mendez catheter [...] fter inspection for adequate hemostasis, two #28 Ivorian chest tubes were placed and brought out [...] Note Patient Name: Geovanna Dixon Jr. 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 No recent out door activities or [...] likely. (Leukocytosis may be r/t stress of FL.) Bacteremia as a complication of his cath, [...] PM EST Office [place] [phone] Isabela Hayward, SENIOR CARE ASSISTANT [facility] [place] [address] 11/10/2024 10:00 AM EST Office [place] [phone] Dai Whitman APRN 11/21/2024 2:15 PM EST Office [place] [phone] Dayanara Grover MD [facility] [place] [address] Scheduled Referrals Name Type Priority Associated Diagnoses Orde r Schedule REFERRAL TO CARDIAC REHAB Outpatient Referral Routine Chest pain Ordered: 01/08/2012 documented as of this encounter Procedures Procedure Name Priority Date/Time Associated Diagnosis Comments CARDIAC CATHETERIZATION Routine 01/11/20 12 11:04 AM EST LAB SCAN 01/10/2012 1:46 PM EST CARDIOVASCULAR OR NURSE SCAN 01/10/2012 1:46 PM EST CARDIAC CATH [...] 01/05/20 12 2:00 AM EST CARDIAC ENZYMES ([facility]/CGP) Routine 01/05/2012 2:00 AM EST CREATININE Routine [...] Routine 12/30/2011 4:14 PM EST CARDIAC ENZYMES ([facility]/CGP) STAT 12/30/2011 2:08 PM EST APTT STAT 12/30/2011 2:08 PM EST HIV SCREEN, 4TH GENERATION ([facility]/CGP/APD/NLH) Routine 12/30/2011 10:18 AM EST ECHOCARDIOGRAM TRANSTHORACIC [...] Routine 12/30/2011 7:07 AM EST CARDIAC ENZYMES ([facility]/CGP) STAT 12/30/2011 5:45 AM EST APTT STAT [...] 12/29/19 12 11:29 PM EST CARDIAC ENZYMES ([facility]/CGP) STAT 12/29/2011 11:29 PM EST APTT STAT [...] (Bezet) 453 ms MUSE SYSTEM Calculated P [place] 41 degrees MUSE SYSTEM Calculated R [place] 25 degrees MUSE SYSTEM Calculated T [place] 74 degrees MUSE SYSTEM INTERPRETATION Sinus tachycardia [...] SCAN EXT O RDR/RSLT * SCAN DOC: CARDIOVASCULAR OR NURSE (01/10/2012 1:46 PM EST) Anatomical Region Laterality Modality Other Narrative 01/11/2012 8:32 AM EST Procedure Note Provider, Scanning - 01/10/2012 1:46 PM EST Scanning Provider MEDIA MGR SCAN EXT O RDR/RSLT * POCT GLUCOSE LAB USE ONLY (01/08/2012 12:00 PM EST) [facility] Glucose, POC 106 60 - 199 mg/dL [facility] Comment: Supplemental ranges: <110 mg/dL before meals <200 mg/dL all other times of the day Blood specimen (specimen) 01/08/2012 12:00 PM EST 01/08/2012 12:00 PM EST Andi Rene MD POINT OF CARE TEST O RDERABLES [facility] * Potassium (01/08/2012 10:05 AM EST) Potassium 4.2 3.5 - 5.0 mmol/L [facility] Comment: Please note: ??Patients with [...] MD CHEMISTRY ORDERABLES Performing Organization Address [facility] Phone Number [facility] * POCT GLUCOSE LAB USE ONLY (01/08/2012 7:21 AM EST) Glucose, POC 144 60 - 199 mg/dL [facility] Comment: Supplemental ranges: <110 mg/dL before meals <200 mg/dL all other times of the day Blood specimen (specimen) 01/08/2012 7:21 AM EST 01/08/2012 7:21 AM EST Andi Rene MD POINT OF CARE TEST O RDTYESHA Performing Organization Address [facility] Phone Number [facility] * POCT GLUCOSE LAB USE ONLY (01/07/2012 8:43 PM EST) Glucose, POC 179 60 - 199 mg/dL [facility] Comment: Supplemental ranges: <110 mg/dL before meals <200 mg/dL all other times of the day Blood specimen (specimen) 01/07/2012 8:43 PM EST 01/07/2012 8:43 PM EST Andi Rene MD POINT OF CARE TEST O RDERAHERNANDEZ Performing Organization Address [facility] de Phone Number [facility] * POCT GLUCOSE LAB USE ONLY (01/07/2012 4:47 PM EST) Glucose, POC 128 60 - 199 mg/dL [facility] Comment: Supplemental ranges: <110 mg/dL before meals <200 mg/dL all other times of the day Blood specimen (specimen) 01/07/2012 4:47 PM EST 01/07/2012 4:47 PM EST Andi Rene MD POINT OF CARE TEST O GILDA Performing Organization Address [facility] de Phone Number [facility] * Potassium (01/07/2012 11:42 AM EST) Potassium 3.6 3.5 - 5.0 mmol/L [facility] Comment: Please note: ??Patients with [...] MD CHEMISTRY ORDERABLES Performing Organization Address [facility] Phone Number [facility] * POCT GLUCOSE LAB USE ONLY (01/07/2012 11:41 AM EST) Glucose, POC 114 60 - 199 mg/dL [facility] Comment: Supplemental ranges: <110 mg/dL before meals <200 mg/dL all other times of the day Blood specimen (specimen) 01/07/2012 11:41 AM EST 01/07/2012 11:41 AM EST Andi Rene MD POINT OF CARE TEST O GILDA Performing Organization Address [facility] de Phone Number [facility] * XR chest routine PA [...] LAB USE ONLY (01/07/2012 8:00 AM EST) [facility] Glucose, POC 116 60 - 199 mg/dL [facility] Comment: Supplemental ranges: <110 mg/dL [...] HEMATOLOGY ORDERABLE S Performing Organization Address [facility] Co de Phone Number [facility] * Microalbumin, urine, random (01/06/2012 9:03 PM EST) Creatinine, Urine 136 mg/dL [facility] DAVIDER MILLENNIUM Albumin, Urine 14.4 mg/L CERNE R MILLENNIUM Albumin / Creatinin Ratio, Urine 11 mcg/mg Cr CERNER MILLENNIUM Comment: Reference Range* Random collection (mcg/mg creatinine) Normal ?<30 Microalbuminuria ?? 30 - 300 Clinical Albuminuria ?? >300 *[employer]. Diabetic Nephropathy. Diabetes Care 1997;(Suppl 1):S24-S27 Exercise within 24 hour, infection, fever, CHF, marked hyperglycemia, and marked hypertension may elevate urinary albumin excretion over baseline values. Urine specimen (specimen) 01/06/2012 9:03 PM EST 01/06/2012 10:28 PM EST Narrative Resulting Agency Comment Spec In Lab Inna Tovar MD URINE ORDERABLES Performing Organization Address [facility] Co de Phone Number [facility] * POCT GLUCOSE LAB USE ONLY (01/06/2012 7:46 PM EST) Glucose, POC 127 60 - 199 mg/dL [facility] Comment: Supplemental ranges: <110 mg/dL before meals <200 mg/dL all other times of the day Blood specimen (specimen) 01/06/2012 7:46 PM EST 01/06/2012 7:46 PM EST Andi Rene MD POINT OF CARE TEST O RDERABLES Performing Organization Address [facility] Co de Phone Number [facility] * POCT GLUCOSE LAB USE ONLY (01/06/2012 4:24 PM EST) Glucose, POC 131 60 - 199 mg/dL [facility] Comment: Supplemental ranges: <110 mg/dL before meals <200 mg/dL all other times of the day Blood specimen (specimen) 01/06/2012 4:24 PM EST 01/06/2012 4:24 PM EST Andi Rene MD POINT OF CARE TEST O GILDA Performing Organization Address [facility] Phone Number [facility] * POCT GLUCOSE LAB USE ONLY (01/06/2012 12:06 PM EST) Glucose, POC 160 60 - 199 mg/dL [facility] Comment: Supplemental ranges: <110 mg/dL before meals <200 mg/dL all other times of the day Blood specimen (specimen) 01/06/2012 12:06 PM EST 01/06/2012 12:06 PM EST Andi Rene MD POINT OF CARE TEST O GILDA Performing Organization Address [facility] Phone Number [facility] * Potassium (01/06/2012 9:59 AM EST) Potassium 4.0 3.5 - 5.0 mmol/L [facility] Comment: Please note: ??Patients with [...] MD CHEMISTRY ORDERABLES Performing Organization Address [facility] de Phone Number [facility] * POCT GLUCOSE LAB USE ONLY (01/06/2012 6:53 AM EST) Glucose, POC 168 60 - 199 mg/dL [facility] Comment: Supplemental ranges: <110 mg/dL before meals <200 mg/dL all other times of the day Blood specimen (specimen) 01/06/2012 6:53 AM EST 01/06/2012 6:53 AM EST Andi S Rene MD POINT OF CARE TEST O RDERAHERNANDEZ Performing Organization Address [facility] Co de Phone Number [facility] * POCT GLUCOSE LAB USE ONLY (01/06/2012 5:03 AM EST) Glucose, POC 147 60 - 199 mg/dL [facility] Comment: Supplemental ranges: <110 mg/dL before meals <200 mg/dL all other times of the day Blood specimen (specimen) 01/06/2012 5:03 AM EST 01/06/2012 5:03 AM EST Andi Rene MD POINT OF CARE TEST O GILDA Performing Organization Address [facility] de Phone Number [facility] * POCT GLUCOSE LAB USE ONLY (01/06/2012 3:16 AM EST) Glucose, POC 126 60 - 199 mg/dL [facility] Comment: Supplemental ranges: <110 mg/dL before meals <200 mg/dL all other times of the day Blood specimen (specimen) 01/06/2012 3:16 AM EST 01/06/2012 3:16 AM EST Andi Rene MD POINT OF CARE TEST O GILDA Performing Organization Address [facility] de Phone Number [facility] * POCT GLUCOSE LAB USE ONLY (01/06/2012 1:12 AM EST) Glucose, POC 135 60 - 199 mg/dL [facility] Comment: Supplemental ranges: <110 mg/dL before meals <200 mg/dL all other times of the day Blood specimen (specimen) 01/06/2012 1:12 AM EST 01/06/2012 1:12 AM EST Andi Rene MD POINT OF CARE TEST O RDERAHERNANDEZ Performing Organization Address [facility]/ZIP Co de Phone Number [facility] * POCT GLUCOSE LAB USE ONLY (01/05/2012 11:52 PM EST) Glucose, POC 133 60 - 199 mg/dL [facility] Comment: Supplemental ranges: <110 mg/dL before meals <200 mg/dL all other times of the day Blood specimen (specimen) 01/05/2012 11:52 PM EST 01/05/2012 11:52 PM EST Andi Rene MD POINT OF CARE TEST O GILDA Performing Organization Address [facility] de Phone Number [facility] * POCT GLUCOSE LAB USE ONLY (01/05/2012 10:54 PM EST) Glucose, POC 130 60 - 199 mg/dL [facility] Comment: Supplemental ranges: <110 mg/dL before meals <200 mg/dL all other times of the day Blood specimen (specimen) 01/05/2012 10:54 PM EST 01/05/2012 10:54 PM EST Andi Rene MD POINT OF CARE TEST O GILDA Performing Organization Address [facility] de Phone Number [facility] * POCT GLUCOSE LAB USE ONLY (01/05/2012 9:51 PM EST) Glucose, POC 132 60 - 199 mg/dL [facility] Comment: Supplemental ranges: <110 mg/dL before meals <200 mg/dL all other times of the day Blood specimen (specimen) 01/05/2012 9:51 PM EST 01/05/2012 9:51 PM EST Andi Rene MD POINT OF CARE TEST O DIMITRIERAHERNANDEZ Performing Organization Address [facility] de Phone Number [facility] * POCT GLUCOSE LAB USE ONLY (01/05/2012 8:50 PM EST) Glucose, POC 126 60 - 199 mg/dL [facility] Comment: Supplemental ranges: <110 mg/dL before meals <200 mg/dL all other times of the day Blood specimen (specimen) 01/05/2012 8:50 PM EST 01/05/2012 8:50 PM EST Andi Rene MD POINT OF CARE TEST O RDTYESHA Performing Organization Address [facility] Co de Phone Number [facility] * POCT GLUCOSE LAB USE ONLY (01/05/2012 8:07 PM EST) Glucose, POC 126 60 - 199 mg/dL [facility] Comment: Supplemental ranges: <110 mg/dL before meals <200 mg/dL all other times of the day Blood specimen (specimen) 01/05/2012 8:07 PM EST 01/05/2012 8:07 PM EST Andi Rene MD POINT OF CARE TEST O GILDA Performing Organization Address [facility] de Phone Number [facility] * POCT GLUCOSE LAB USE ONLY (01/05/2012 6:57 PM EST) Glucose, POC 137 60 - 199 mg/dL [facility] Comment: Supplemental ranges: <110 mg/dL before meals <200 mg/dL all other times of the day Blood specimen (specimen) 01/05/2012 6:57 PM EST 01/05/2012 6:57 PM EST Andi Rene MD POINT OF CARE TEST O GILDA Performing Organization Address [facility] Co de Phone Number [facility] * POCT GLUCOSE LAB USE ONLY (01/05/2012 4:59 PM EST) Glucose, POC 147 60 - 199 mg/dL [facility] Comment: Supplemental ranges: <110 mg/dL before meals <200 mg/dL all other times of the day Blood specimen (specimen) 01/05/2012 4:59 PM EST 01/05/2012 4:59 PM EST Andi Rene MD POINT OF CARE TEST O RDERABLES Performing Organization Address [facility]/ZIP Co de Phone Number [facility] * POCT GLUCOSE LAB USE ONLY (01/05/2012 1:05 PM EST) Glucose, POC 154 60 - 199 mg/dL [facility] Comment: Supplemental ranges: <110 mg/dL before meals <200 mg/dL all other times of the day Blood specimen (specimen) 01/05/2012 1:05 PM EST 01/05/2012 1:05 PM EST Andi Rene MD POINT OF CARE TEST O RDERAHERNANDEZ Performing Organization Address [facility] Co de Phone Number [facility] * POCT GLUCOSE LAB USE ONLY (01/05/2012 12:42 PM EST) Glucose, POC 148 60 - 199 mg/dL [facility] Comment: Supplemental ranges: <110 mg/dL before meals <200 mg/dL all other times of the day Blood specimen (specimen) 01/05/2012 12:42 PM EST 01/05/2012 12:42 PM EST Andi Rene MD POINT OF CARE TEST O GILDA Performing Organization Address [facility] Co de Phone Number [facility] * POCT GLUCOSE LAB USE ONLY (01/05/2012 9:54 AM EST) Glucose, POC 145 60 - 199 mg/dL [facility] Comment: Supplemental ranges: <110 mg/dL before meals <200 mg/dL all other times of the day Blood specimen (specimen) 01/05/2012 9:54 AM EST 01/05/2012 9:54 AM EST Andi Rene MD POINT OF CARE TEST O RDERAHERNANDEZ Performing Organization Address [facility] Co de Phone Number [facility] * POCT GLUCOSE LAB USE ONLY (01/05/2012 8:00 AM EST) Glucose, POC 168 60 - 199 mg/dL [facility] Comment: Supplemental ranges: <110 mg/dL before meals <200 mg/dL all other times of the day Blood specimen (specimen) 01/05/2012 8:00 AM EST 01/05/2012 8:00 AM EST Andi Rene MD POINT OF CARE TEST O RDERAHERNANDEZ Performing Organization Address [facility] de Phone Number [facility] * POCT GLUCOSE LAB USE ONLY (01/05/2012 5:58 AM EST) Glucose, POC 164 60 - 199 mg/dL [facility] Comment: Supplemental ranges: <110 mg/dL before meals <200 mg/dL all other times of the day Blood specimen (specimen) 01/05/2012 5:58 AM EST 01/05/2012 5:58 AM EST Andi Rene MD POINT OF CARE TEST O DIMITRIERAHERNANDEZ Performing Organization Address [facility] de Phone Number [facility] * POCT GLUCOSE LAB USE ONLY (01/05/2012 4:12 AM EST) Glucose, POC 148 60 - 199 mg/dL [facility] Comment: Supplemental ranges: <110 mg/dL before meals <200 mg/dL all other times of the day Blood specimen (specimen) 01/05/2012 4:12 AM EST 01/05/2012 4:12 AM EST Andi Rene MD POINT OF CARE TEST O RDERAHERNANDEZ Performing Organization Address [facility] de Phone Number [facility] * POCT GLUCOSE LAB USE ONLY (01/05/2012 2:05 AM EST) Glucose, POC 148 60 - 199 mg/dL [facility] MILLENNIUM Comment: Supplemental ranges: <110 mg/dL [...] 2:00 AM EST) Troponin-T 0.39(H) <=0.03 ng/mL [facility] Comment: 0.03 ng/mL: Represents the 99th percentile upper reference limit for normals. >0.03 ng/mL: Elevated cardiac troponin T level indicative of myocardial damage. Diagnosis of acute, evolving or recent [place] requires a typical rise and gradual fall [...] consensus document of the Joint Society of Cardiology/[place] [employer] Committee for the redefinition of myocardial infarction. Journal of the [place] [employer] 2000; 36: 959-969] Creatine Kinase 436(H) 0 - 200 unit/L [facility] Blood specimen (specimen) 01/05/2012 2:00 AM EST 01/05/2012 2:11 AM EST Narrative Resulting Agency Comment Spec In Lab Sarthak Pollard MD CHEMISTRY ORDERABLES ARIAN NELSON * Potassium (01/05/2012 2:00 AM EST) Pathologist [facility] Potassium 4.4 3.5 - 5.0 mmol/L [facility] Comment: Please note: ??Patients with [...] MD CHEMISTRY ORDERABLES Performing Organization Address [facility] de Phone Number ARIAN NELSON * (ABNORMAL) Glucose, fasting (01/05/2012 2:00 AM EST) Glucose Fasting 148(H) 65 - 99 mg/dL [facility] Comment: ?Fasting* Glucose Interpretive Criteria [...] of Diabetes Mellitus, Position Statement from the [place] [employer]. ??Diabetes Care, Volume 33, Supplement 1, Nov 2009 Blood specimen (specimen) 01/05/2012 2:00 AM EST 01/05/2012 2:11 AM EST Narrative Resulting Agency Comment Spec In Lab Sarthak Pollard MD CHEMISTRY ORDERABLES Performing Organization Address [facility] Phone Number ARIAN NELSON * Creatinine, serum (01/05/2012 2:00 AM EST) Creatinine 0.86 0.80 - 1.50 mg/dL [facility] Est Glomerular Filtration Rate >60 >=60 [facility] Comment: The National Kidney Disease [...] MD CHEMISTRY ORDERABLES Performing Organization Address [facility] de Phone Number CERBRIAN CAENNIUM * BUN (01/05/2012 2:00 AM EST) Blood Urea Nitrogen 10 10 - 20 mg/dL [facility]ERN[facility] MILLENNIUM Blood specimen (specimen) 01/05/2012 2:00 AM EST 01/05/2012 2:11 AM EST Narrative Resulting Agency Comment Spec In Lab Sarthak Pollard MD CHEMISTRY ORDERABLES Performing Organization Address [facility] de Phone Number CERBRIAN ROBYENNIUM * (ABNORMAL) [...] Platelet Volume 9.7 9.0 - 12.0 fL [facility] M[facility] Blood specimen (specimen) 01/05/2012 2:00 AM EST 01/05/2012 2:11 AM EST Narrative Resulting Agency Comment Spec In Lab Sarthak Pollard MD HEMATOLOGY ORDERABLE S Performing Organization Address [facility] de Phone Number [facility] * POCT GLUCOSE LAB USE ONLY (01/04/2012 11:58 PM EST) Glucose, POC 136 60 - 199 mg/dL [facility] Comment: Supplemental ranges: <110 mg/dL before meals <200 mg/dL all other times of the day Blood specimen (specimen) 01/04/2012 11:58 PM EST 01/04/2012 11:58 PM EST Andi Rene MD POINT OF CARE TEST O GILDA Performing Organization Address [facility] Co de Phone Number [facility] * POCT GLUCOSE LAB USE ONLY (01/04/2012 9:00 PM EST) Glucose, POC 143 60 - 199 mg/dL [facility] Comment: Supplemental ranges: <110 mg/dL before meals <200 mg/dL all other times of the day Blood specimen (specimen) 01/04/2012 9:00 PM EST 01/04/2012 9:00 PM EST Andi Rene MD POINT OF CARE TEST O RDERABLES Performing Organization Address [facility] de Phone Number [facility] * GLUCOSE, RANDOM (01/04/2012 9:00 PM EST) Glucose 128 60 - 199 mg/dL [facility] Comment:Diabetes: >=200 mg/d L plus symptoms Blood specimen (specimen) 01/04/2012 9:00 PM EST 01/04/2012 9:08 PM EST Narrative Resulting Agency Comment Spec In Lab Sarthak Pollard MD CHEMISTRY ORDERABLES Performing Organization Address [facility] Phone Number [facility] * (ABNORMAL) Hemoglobin (01/04/2012 9:00 PM EST) Hemoglobin 13.6(L) 13.7 - 17.5 gm/dL [facility] Blood specimen (specimen) 01/04/2012 9:00 PM EST 01/04/2012 9:08 PM EST Narrative Resulting Agency Comment Spec In Lab Sarthak Pollard MD HEMATOLOGY ORDERABLE S Performing Organization Address [facility] Phone Number [facility] * Potassium (01/04/2012 9:00 PM EST) Potassium 4.7 3.5 - 5.0 mmol/L [facility] Comment: Please note: ??Patients with [...] MD CHEMISTRY ORDERABLES Performing Organization Address [facility] de Phone Number [facility] * (ABNORMAL) BLOOD GAS 2 ARTERIAL (01/04/2012 6:47 PM EST) pH, Arterial 7.33(L) CERNER MILLENNIUM PCO2, Arterial 47(H) mmHg CERNE R MILLENNIUM PO2, Arterial 109(H) mmHg CERNER MILLENNIUM Bicarbonate, Arterial 24.1 mmol/L CERNER MILLENNIUM Base Excess, Arterial -1.9 mmol/L [facility]ERNER MILLENNIUM Hgb Blood Gas 14.1 gm/dL [facility]ERN[facility] MILLENNIUM Comment: Total Hemoglobin (in gm/dL) ?Based on [facility] Hematology ranges: ?Age ?Reference Range Less than [...] Comment: Total Hemoglobin (in gm/dL) ?Based on [facility] Hematology ranges: ?Age ?Reference Range Less than [...] IMPRESSION: Expected early postoperative findings. Ricky [facility] [place] ORDERABLES * (ABNORMAL) BLOOD GAS 2 ARTERIAL (01/04/2012 4:30 PM EST) pH, Arterial 7.35(L) CERNER MILLENNIUM PCO2, Arterial 46(H) mmHg CERNE R MILLENNIUM PO2, Arterial 223(H) mmHg CERNER MILLENNIUM Bicarbonate, Arterial 25.1 mmol/L CERNER MILLENNIUM Base Excess, Arterial -0.4 mmol/L CERNER MILLENNIUM Hgb Blood Gas Not Perf 13.7 - 17.5 gm/dL [facility] MILLENNIUM Comment: Total Hemoglobin (in gm/dL) ?Based on [facility] Hematology ranges: ?Age ?Reference Range Less than [...] TEST O RDERABLES Performing Organization Address [facility]/ZIP Co de Phone Number CERNER MILLENNIUM * EKG 12 Lead (01/04/2012 4:26 PM EST) Ventricular rate 72 BPM MUSE SYSTEM Atrial Rate 72 BPM MUSE SYSTEM P-R Interval 174 ms MUSE SYSTEM QRS Duration 96 ms MUSE SYSTEM Q-T Interval 416 ms MUSE SYSTEM QTC Calculated (Bezet) 455 ms MUSE SYSTEM Calculated P [place] 48 degrees MUSE SYSTEM Calculated R [place] 23 degrees MUSE SYSTEM Calculated T [place] 71 degrees MUSE SYSTEM INTERPRETATION Normal sinus rhythm Normal ECG When compared with ECG of 30-DEC-2011 17:24, Vent. rate has decreased BY ??35 BPM Minimal criteria for Inferior infarct are no longer Present Nonspecific T wave abnormality, improved in Anterolateral leads Confirmed by fellow MD Steve, Luca ([id number]) on 01/05/2012 10:22:57 AM Confirmed by MD DELMIS, SARTHAK ([id number]) on 01/05/2012 1:30:02 PM MUSE SYSTEM 01/04/2012 4:26 PM EST 01/05/2012 1:30 PM EST Sarthak Pollard MD ECG ORDERABLES Performing Organization Address [facility] Co de Phone Number MUSE [...] l) mmHg CERNER MILLENNIUM Comment: Noted by medical or surgical instrument maker. MTF PO2, Arterial 145(H) mmHg CERNER MILLENNIUM Bicarbonate, Arterial 25.5 mmol/L CERNER MILLENNIUM Base Excess, Arterial -0.7 mmol/L CERNER MILLENNIUM Hgb Blood Gas 11.1(L) gm/dL [facility] MILLENNIUM Comment: Total Hemoglobin (in gm/dL) ?Based on [facility] Hematology ranges: ?Age ?Reference Range Less than [...] TEST O RDERABLES Performing Organization Address [facility] de Phone Number [facility] * THROMBIN TIME (01/04/2012 3:28 PM EST) Thrombin Time 17 15 - 20 sec [facility] Blood specimen (specimen) 01/04/2012 3:28 PM EST 01/04/2012 3:28 PM EST Narrative Resulting Agency Comment Spec In Lab Sarthak Pollard MD HEMATOLOGY ORDERABLE S Performing Organization Address [facility] de Phone Number [facility] * FIBRINOGEN (01/04/2012 3:28 PM EST) Fibrinogen 364 200 - 470 mg/dL [facility] Comment:Called by: LEILANI, Read back by: AKANKSHA SAMPSON, Date/Time:01/04/12 15:45. Blood specimen (specimen) 01/04/2012 3:28 PM EST 01/04/2012 3:28 PM EST Narrative Resulting Agency Comment Spec In Lab Sarthak Pollard MD HEMATOLOGY ORDERABLE S Performing Organization Address [facility] Phone Number [facility] * APTT (01/04/2012 3:28 PM EST) Partial Thromboplastin Time 30 25 - 35 sec [facility] Comment: Recommended therapeutic PTT range for full dose unfractionated heparin is 80-114 seconds. Blood specimen (specimen) 01/04/2012 3:28 PM EST 01/04/2012 3:28 PM EST Narrative Resulting Agency Comment Spec In Lab Sarthak Pollard MD HEMATOLOGY ORDERABLE S Performing Organization Address [facility] de Phone Number [facility] * (ABNORMAL) PROTHROMBIN TIME (01/04/2012 3:28 PM EST) Prothrombin Time 17.8(H) 11.9 - 14.7 sec [facility] Comment: [facility] Transfusion Committee Guidelines: INR less [...] l) mmHg [facility]ERNER MILLENNIUM Comment: Noted by medical or surgical instrument maker. MTF PO2, Arterial 296(H) mmHg CERNER MILLENNIUM Bicarbonate, Arterial 26.3(H) mmol/L [facility]ERN[facility] MILLENNIUM Base Excess, Arterial 0.1 mmol/L [facility] MILLENNIUM Hgb Blood Gas 10.2(L) gm/dL [facility] MILLENNI[facility] Comment: Total Hemoglobin (in gm/dL) ?Based on [facility] Hematology ranges: ?Age ?Reference Range Less than [...] TEST O RDERABLES Performing Organization Address [facility] Phone Number [facility] * FIBRINOGEN (01/04/2012 2:25 PM EST) Fibrinogen 356 200 - 470 mg/dL [facility] Comment:Called by: [facility], Read back by: AKANKSHA SAMPSON, Date/Time:01/04/12 14:49. Blood specimen (specimen) 01/04/2012 2:25 PM EST 01/04/2012 2:32 PM EST Narrative Resulting Agency Comment Spec In Lab Sarthak Pollard MD HEMATOLOGY ORDERABLE S Performing Organization Address [facility] de Phone Number [facility] * PLATELET COUNT (01/04/2012 2:25 PM EST) Platelet 281 145 - 370 x10(3)/mcL [facility] Blood specimen (specimen) 01/04/2012 2:25 PM EST 01/04/2012 2:32 PM EST Narrative Resulting Agency Comment Spec In Lab Sarthak Pollard MD HEMATOLOGY ORDERABLE S Performing Organization Address [facility]/ZIP Co de Phone Number [facility]ERNER MILLENNIUM * (ABNORMAL) BLOOD GAS 2 ARTERIAL (01/04/2012 12:59 PM EST) [facility] Signature pH, Arterial 7.36 CERNER MILLENNIUM PCO2, Arterial 48(H) mmHg CERNE R MILLENNIUM PO2, Arterial 197(H) mmHg CERNER MILLENNIUM Bicarbonate, Arterial 26.7(H) mmol/L [facility]ERN[facility] MILLENNIUM Base Excess, Arterial 1.3 mmol/L [facility]ERN[facility] MILLENNIUM Hgb Blood Gas 13.9 gm/dL [facility] MILLENNI[facility] Comment: Total Hemoglobin (in gm/dL) ?Based on [facility] Hematology ranges: ?Age ?Reference Range Less than [...] TEST O RDERAHERNANDEZ Performing Organization Address [facility] Co de Phone Number [facility] * Prepare Coag Factors (Non-Hemophilia) (01/04/2012 12:05 PM EST) Dispensed? Yes ARIAN CERDAIUM Blood specimen (specimen) 01/04/2012 12:05 PM EST 01/04/2012 12:01 PM EST Narrative Resulting Agency Comment Spec In Lab Inna Tovar MD BLOOD BANK PRODUCT O RDERAHERNANDEZ Performing Organization Address [facility] Co de Phone Number ARIAN CERDAIUM * Prepare RBC (01/04/2012 12:05 PM EST) Dispensed? Yes ARIAN CERDAIUM Blood specimen (specimen) 01/04/2012 12:05 PM EST 01/04/2012 12:01 PM EST Narrative Resulting Agency Comment Spec In Lab Inna Tovar MD BLOOD BANK PRODUCT O RDERABLES Performing Organization Address [facility]/ZIP Co de Phone Number [facility] PRASHANTIUM * (ABNORMAL) DIFFERENTIAL, MANUAL (01/04/2012 4:40 [...] 0.0 - 0.2 x10(3)/mc L CERNER MILLENNIUM [place] Absolute Manual 0.3(H) 0.0 - 0.0 x10(3)/mc [...] BMP w/fasting Glucose (01/04/2012 4:40 AM EST) [facility] Glucose Fasting 113(H) 65 - 99 mg/dL [...] of Diabetes Mellitus, Position Statement from the [place] [employer]. ??Diabetes Care, Volume 33, Supplement [...] HEMATOLOGY ORDERABLE S Performing Organization Address [facility] Co de Phone Number [facility] MILLENNIUM * (ABNORMAL) APTT (01/04/2012 4:40 AM EST) Partial Thromboplastin Time 103(H) 25 - 35 sec [facility] MILLENNIUM Comment: Recommended therapeutic PTT range for full dose unfractionated heparin is 80-114 seconds. Blood specimen (specimen) 01/04/2012 4:40 AM EST 01/04/2012 4:52 AM EST Narrative Resulting Agency Comment Spec In Lab Sarthak Pollard MD HEMATOLOGY ORDERABLE S Performing Organization Address [facility] de Phone Number [facility] * (ABNORMAL) APTT (01/03/2012 7:38 PM EST) Partial Thromboplastin Time 98(H) 25 - 35 sec [facility] MILLENNIUM Comment: Recommended therapeutic PTT range for full dose unfractionated heparin is 80-114 seconds. Blood specimen (specimen) 01/03/2012 7:38 PM EST 01/03/2012 7:53 PM EST Narrative Resulting Agency Comment Spec In Lab Sarthak Pollard MD HEMATOLOGY ORDERABLE S Performing Organization Address [facility] Co de Phone Number [facility] * (ABNORMAL) APTT (01/03/2012 12:17 PM EST) Partial Thromboplastin Time 101(H) 25 - 35 sec [facility] MILLENNIUM Comment: Recommended therapeutic PTT [...] AM EST) Ab Screen Interp Negative [facility] Expires at [id number] on: [id number] [facility] Blood specimen (specimen) 01/03/2012 6:15 AM EST 01/03/2012 6:35 AM EST Narrative Resulting Agency Comment Spec In Lab Sarthak Pollard MD BLOOD BANK LAB ORDER RANDELL Performing Organization Address [facility]/ZIP Co de Phone Number [facility] * ABO/RH TYPING (01/03/2012 6:15 AM EST) ABORH Type A Pos [facility] Blood specimen (specimen) 01/03/2012 6:15 AM EST 01/03/2012 6:35 AM EST Narrative Resulting Agency Comment Spec In Lab Sarthak Pollard MD BLOOD BANK LAB ORDER RANDELL Performing Organization Address [facility] Co de Phone Number [facility] * (ABNORMAL) APTT (01/03/2012 6:15 AM EST) Partial Thromboplastin Time 96(H) 25 - 35 sec [facility] Comment: Recommended therapeutic PTT range for full dose unfractionated heparin is 80-114 seconds. Blood specimen (specimen) 01/03/2012 6:15 AM EST 01/03/2012 6:23 AM EST Narrative Resulting Agency Comment Spec In Lab Sarthak Pollard MD HEMATOLOGY ORDERABLE S Performing Organization Address [facility] Co de Phone Number [facility] * (ABNORMAL) BMP w/fasting Glucose (01/03/2012 6:15 AM EST) Glucose Fasting 116(H) 65 - 99 mg/dL [facility] Comment: ?Fasting* Glucose Interpretive Criteria [...] of Diabetes Mellitus, Position Statement from the [place] [employer]. ??Diabetes Care, Volume 33, Supplement [...] Thromboplastin Time 69(H) 25 - 35 sec [facility] Comment: Recommended therapeutic PTT range for full dose unfractionated heparin is 80-114 seconds. Blood specimen (specimen) 01/02/2012 11:21 PM EST 01/02/2012 11:24 PM EST Narrative Resulting Agency Comment Spec In Lab Sarthak Pollard MD HEMATOLOGY ORDERABLE S Performing Organization Address [facility] Co de Phone Number [facility] * (ABNORMAL) APTT (01/02/2012 5:32 PM EST) Partial Thromboplastin Time 53(H) 25 - 35 sec [facility] Comment: Recommended therapeutic PTT range for full dose unfractionated heparin is 80-114 seconds. Blood specimen (specimen) 01/02/2012 5:32 PM EST 01/02/2012 5:38 PM EST Narrative Resulting Agency Comment Spec In Lab Sarthak Pollard MD HEMATOLOGY ORDERABLE S Performing Organization Address [facility] de Phone Number [facility] * (ABNORMAL) APTT (01/02/2012 11:56 AM EST) Partial Thromboplastin Time 46(H) 25 - 35 sec [facility] Comment: Recommended therapeutic PTT range for full dose unfractionated heparin is 80-114 seconds. Blood specimen (specimen) 01/02/2012 11:56 AM EST 01/02/2012 12:05 PM EST Narrative Resulting Agency Comment Spec In Lab Sarthak Pollard MD HEMATOLOGY ORDERABLE S Performing Organization Address [facility] Co de Phone Number [facility] * (ABNORMAL) DIFFERENTIAL, AUTOMATED (01/02/2012 6:02 AM EST) Neutrophil % 64.4 34.0 - 71.0 % [facility] Neutrophil Absolute 6.49(H) 1.50 - 6.30 x10(3)/mc [...] of Diabetes Mellitus, Position Statement from the [place] [employer]. ??Diabetes Care, Volume 33, Supplement [...] In Lab Andi Rene MD CHEMISTRY ORDERABLES [facility] * (ABNORMAL) CBC (with Diff) (01/02/2012 [...] MD HEMATOLOGY ORDERABLE S Performing Organization Address City/[facility]/ZIP Co de Phone Number CERNER MILLENNIUM [...] MD HEMATOLOGY ORDERABLE S Performing Organization Address City/[facility]/ZIP Co de Phone Number CERBRIAN CAENNIUM [...] EST Sarthak Pollard MD HEMATOLOGY ORDERABLE S [facility] MILL[facility] * (ABNORMAL) CBC [...] of variation 12.9 10.9 - 14.4 % [facility] Mean Platelet Volume 10.1 9.0 - 12.0 fL [facility] Blood specimen (specimen) 01/01/2012 6:37 PM EST 01/01/2012 6:43 PM EST Narrative Resulting Agency Comment Spec In Lab Sarthak Pollard MD HEMATOLOGY ORDERABLE S Performing Organization Address [facility] Phone Number [facility] * APTT (01/01/2012 6:37 PM EST) Partial Thromboplastin Time 32 25 - 35 sec [facility] Comment: Recommended therapeutic PTT range for full dose unfractionated heparin is 80-114 seconds. Blood specimen (specimen) 01/01/2012 6:37 PM EST 01/01/2012 6:43 PM EST Narrative Resulting Agency Comment Spec In Lab Sarthak Pollard MD HEMATOLOGY ORDERABLE S Performing Organization Address [facility] Phone Number [facility] * POCT GLUCOSE LAB USE ONLY (01/01/2012 12:02 PM EST) Glucose, POC 99 60 - 199 mg/dL [facility] Comment: Supplemental ranges: <110 mg/dL before meals <200 mg/dL all other times of the day Blood specimen (specimen) 01/01/2012 12:02 PM EST 01/01/2012 12:02 PM EST Andi Rene MD POINT OF CARE TEST O RDERABLES Performing Organization Address [facility] de Phone Number [facility] * (ABNORMAL) APTT (01/01/2012 11:59 AM EST) Partial Thromboplastin Time 108(H) 25 - 35 sec [facility] Comment: Recommended therapeutic PTT range [...] Absolute 0.0 0.0 - 0.2 x10(3)/mc L [facility] Immature Gran % 0.50 0.00 - 0.66 % [facility] Comment: Immature granulocytes(IG's)percentage and absolute count will include metamyelocytes, myelocytes, and promyelocytes. Blood smears from CBCs yielding IG's will be scanned manually for concordance. If this scan disagrees with the automated IG or if promyelocytes are noted, a manual differential will be performed. Immature Gran Absolute 0.07(H) 0.00 - 0.05 x10(3)/mc L [facility] Blood specimen (specimen) 01/01/2012 5:19 AM EST 01/01/2012 5:36 AM EST Remigio Ceron MD HEMATOLOGY ORDERABLE S [facility] * (ABNORMAL) APTT (01/01/2012 5:19 AM EST) Partial Thromboplastin Time 105(H) 25 - 35 sec [facility] Comment: Recommended therapeutic PTT range for full dose unfractionated heparin is 80-114 seconds. Blood specimen (specimen) 01/01/2012 5:19 AM EST 01/01/2012 5:36 AM EST Narrative Resulting Agency Comment Spec In Lab Remigio Ceron MD HEMATOLOGY ORDERABLE S [facility] * (ABNORMAL) BMP w/fasting Glucose (01/01/2012 5:19 AM EST) Glucose Fasting 121(H) 65 - 99 mg/dL [facility] Comment: ?Fasting* Glucose Interpretive Criteria [...] of Diabetes Mellitus, Position Statement from the [place] [employer]. ??Diabetes Care, Volume 33, Supplement [...] Lab Remigio Ceron MD HEMATOLOGY ORDERABLE S [facility] * (ABNORMAL) APTT (12/31/2011 11:01 PM EST) Partial Thromboplastin Time 72(H) 25 - 35 sec [facility] Comment: Recommended therapeutic PTT range for full dose unfractionated heparin is 80-114 seconds. Blood specimen (specimen) 12/31/2011 11:01 PM EST 12/31/2011 11:18 PM EST Narrative Resulting Agency Comment Spec In Lab Andi Rene MD HEMATOLOGY ORDERABLE S Performing Organization Address [facility] de Phone Number [facility] * Upper Respiratory Culture Throat (12/31/2011 9:55 PM EST) Upper Respiratory Culture ? Patient Name: ZACK HEART, GEOVANNA Llanos ? Ordered By: ANDI RENE ? MR#: [id number] ?LOC: ??[facility] ? /Sex: ??1975 (36 years), ? Male ? PROCEDURE: Upper Respiratory Culture ?SOURCE: Throat ? COLLECTED: 12/31/2011 21:55 ? STARTED: 12/31/2011 22:16 ? FINAL REPORT ? Final Report ? Verified:2011 08:12 ? Beta Hemolytic Streptococci, Group A isolated ? PRELIMINARY REPORT ? Preliminary Report ? Verified:2011 09:46 ? Beta Hemolytic Streptococci, Group A isolated ? [facility] Specimen from throat (specimen) 12/31/2011 9:55 PM EST 12/31/2011 10:16 PM EST Narrative Resulting Agency Comment Spec In Lab Andi Rene MD MICROBIOLOGY - GENER AL ORDERABLES Performing Organization Address [facility] de Phone Number [facility] * (ABNORMAL) APTT (12/31/2011 4:34 PM EST) Partial Thromboplastin Time 66(H) 25 - 35 sec [facility] Comment: Recommended therapeutic PTT range for full dose unfractionated heparin is 80-114 seconds. Blood specimen (specimen) 12/31/2011 4:34 PM EST 12/31/2011 4:39 PM EST Narrative Resulting Agency Comment Spec In Lab Andi Rene MD HEMATOLOGY ORDERABLE S Performing Organization Address [facility] Phone Number [facility] * Duplex Study for DVT, Bilat legs (12/31/2011 11:07 AM EST) Pathologist [facility] VB Text Report Department: Vascular Surgery Lab Patient: [id number] (GEOVANNA DIXON) CPT Code: 03312 ICD-9: 780.6 Referring Physician: ANDI RENE Indication: [...] 10:39 AM EST) Smear Review Report ? [facility] ? Provider: ?? ANDI RENE ?Pt. Name: ?? ZACK REYNA, GEOVANNA Llanos ? Acc #: ?[id number] ? Pt. ? Col Date: ?? 12/31/2011 [...] Resulting Agency Comment Spec In Lab Andi Reen MD HEMATOLOGY ORDERABLE S CERNER MILLENNIUM * [...] of variation 13.1 10.9 - 14.4 % [facility] Mean Platelet Volume 10.4 9.0 - 12.0 fL [facility] Blood specimen (specimen) 12/31/2011 9:44 AM EST 12/31/2011 10:12 AM EST Narrative Resulting Agency Comment Spec In Lab Andi Rene MD HEMATOLOGY ORDERABLE S Performing Organization Address [facility] de Phone Number [facility] * Lactate Dehydrogenase (12/31/2011 9:44 AM EST) Lactate Dehydrogenase 123 110 - 220 unit/L [facility] Blood specimen (specimen) 12/31/2011 9:44 AM EST 12/31/2011 10:12 AM EST Narrative Resulting Agency Comment Spec In Lab Andi Rene MD CHEMISTRY ORDERABLES Performing Organization Address [facility] Phone Number [facility] * Peripheral Smear Review (12/31/2011 9:44 AM EST) Peripheral Smear Review See Comment [facility] Comment: When completed by the Pathologist, report [id number] will display under Hematology Reports. Blood specimen (specimen) 12/31/2011 9:44 AM EST 12/31/2011 10:12 AM EST Narrative Resulting Agency Comment Spec In Lab Andi Rene MD HEMATOLOGY ORDERABLE S Performing Organization Address [facility] de Phone Number [facility] * (ABNORMAL) APTT (12/31/2011 9:44 AM EST) Partial Thromboplastin Time 50(H) 25 - 35 sec [facility] Comment: Recommended therapeutic PTT range [...] of Diabetes Mellitus, Position Statement from the [place] [employer]. ??Diabetes Care, Volume 33, Supplement [...] Platelet Volume 10.3 9.0 - 12.0 fL [facility] MILL[facility] Blood specimen (specimen) 12/31/2011 3:38 AM EST 12/31/2011 3:50 AM EST Narrative Resulting Agency Comment Spec In Lab Remigio Ceron MD HEMATOLOGY ORDERABLE S Performing Organization Address City/[facility]/ZIP Co de Phone Number ARIAN NELSON * (ABNORMAL) APTT (12/30/2011 9:02 PM EST) Partial Thromboplastin Time 37(H) 25 - 35 sec [facility] Comment: Recommended therapeutic PTT range for full dose unfractionated heparin is 80-114 seconds. Blood specimen (specimen) 12/30/2011 9:02 PM EST 12/30/2011 9:10 PM EST Narrative Resulting Agency Comment Spec In Lab Andi Rene MD HEMATOLOGY ORDERABLE S [facility] * EKG 12 Lead (12/30/2011 5:24 PM EST) Ventricular rate 107 BPM MUSE SYSTEM Atrial Rate 107 BPM MUSE SYSTEM P-R Interval 160 ms MUSE SYSTEM QRS Duration 104 ms MUSE SYSTEM Q-T Interval 310 ms MUSE SYSTEM QTC Calculated (Bezet) 413 ms MUSE SYSTEM Calculated P [place] 24 degrees MUSE SYSTEM Calculated R [place] 25 degrees MUSE SYSTEM Calculated T [place] 54 degrees MUSE SYSTEM INTERPRETATION Sinus tachycardia [...] REYNA ?Ordered By: ANDI RENE ? MR#: [id number] ?LOC: [facility] ? /Sex: ??1975 (36 years), [...] [place] ?Ordered By: ANDI RENE ? MR#: [id number] ?LOC: [facility] ? /Sex: ??1975 (36 years), [...] In Lab Andiemely Rene MD MICROBIOLOGY - BLOOD ORDERABLES CERNER [...] MD HEMATOLOGY ORDERABLE S Performing Organization Address City/[facility]/ZIP Co de Phone Number [facility] * ANTIBODY SCREEN (12/30/2011 4:25 PM EST) Ab Screen Interp Negative [facility] Expires at [id number] on: [id number] [facility] Blood specimen (specimen) 12/30/2011 4:25 PM EST 12/30/2011 4:36 PM EST Narrative Resulting Agency Comment Spec In Lab Andi Rene MD BLOOD BANK LAB ORDER RANDELL Performing Organization Address [facility] Co de Phone Number [facility] * ABO/RH TYPING (12/30/2011 4:25 PM EST) Pathologist [facility] ABORH Type A Pos [facility] Blood specimen (specimen) 12/30/2011 4:25 PM EST 12/30/2011 4:36 PM EST Narrative Resulting Agency Comment Spec In Lab Andi Rene MD BLOOD BANK LAB ORDER RANDELL Performing Organization Address [facility] Co de Phone Number [facility] * Glucose, random (12/30/2011 4:25 PM EST) Pathologist [facility] Glucose 126 60 - 199 mg/dL [facility] Comment:Diabetes: >=200 mg/d L plus symptoms Blood specimen (specimen) 12/30/2011 4:25 PM EST 12/30/2011 4:43 PM EST Narrative Resulting Agency Comment Spec In Lab Andi Rene MD CHEMISTRY ORDERABLES Performing Organization Address [facility] Co de Phone Number [facility] * (ABNORMAL) CBC (with Diff) (12/30/2011 4:25 PM EST) Pathologist [facility] White Blood Cell 18.8(H) 4.0 - 10.0 x10(3)/mc L [facility] Red Blood Cell 4.47(L) 4.63 - 6.08 x10(6)/mc L [facility] Hemoglobin 13.7 13.7 - 17.5 gm/dL [facility] Hematocrit 39.7(L) 40.0 - 51.0 % [facility] Mean Cell Volume 88.8 79.0 - 92.0 fL [facility] Mean Cell Hemoglobin 30.6 25.6 - 32.2 pg [facility] Mean Cell Hemoglobin Concentration 34.5 32.0 - 36.5 gm/dL [facility] Platelet 223 145 - 370 x10(3)/mc L [facility] RDW Standard Deviation 42.6 35.0 - 46.0 fL [facility] RDW coefficient of variation 13.2 10.9 - 14.4 % [facility] Mean Platelet Volume 10.5 9.0 - 12.0 fL [facility] Blood specimen (specimen) 12/30/2011 4:25 PM EST 12/30/2011 4:43 PM EST Narrative Resulting Agency Comment Spec In Lab Andi Rene MD HEMATOLOGY ORDERABLE S Performing Organization Address [facility] de Phone Number [facility] * APTT (12/30/2011 2:08 PM EST) Partial Thromboplastin Time 31 25 - 35 sec [facility] Comment: Recommended therapeutic PTT range for full dose unfractionated heparin is 80-114 seconds. Blood specimen (specimen) 12/30/2011 2:08 PM EST 12/30/2011 2:27 PM EST Narrative Resulting Agency Comment Spec In Lab Andi Rene MD HEMATOLOGY ORDERABLE S Performing Organization Address [facility] Co de Phone Number [facility] * Cardiac Enzymes (12/30/2011 2:08 PM EST) Troponin-T 0.03 <=0.03 ng/mL [facility] Comment: 0.03 ng/mL: Represents the 99th percentile upper reference limit for normals. >0.03 ng/mL: Elevated cardiac troponin T level indicative of myocardial damage. Diagnosis of acute, evolving or recent [place] requires a typical rise and gradual fall [...] consensus document of the Joint Society of Cardiology/[place] [employer] Committee for the redefinition of myocardial infarction. Journal of the [place] [employer]iology 2000; 36: 959-969] Creatine Kinase 72 0 - 200 unit/L [facility] CERDAIUM Blood specimen (specimen) 12/30/2011 2:08 PM EST 12/30/2011 2:27 PM EST Narrative Resulting Agency Comment Spec In Lab Remigio Ceron MD CHEMISTRY ORDERABLES Performing Organization Address [facility] Co de Phone Number [facility] C[facility] * HIV (12/30/2011 10:18 AM EST) HIV 1/2 Ab Negative [facility] Blood specimen (specimen) 12/30/2011 10:18 AM EST 12/30/2011 10:28 AM EST Narrative Resulting Agency Comment Spec In Lab Andi Rene MD CHEMISTRY ORDERABLES Performing Organization Address [facility] Co de Phone Number [facility] C[facility] * Echo Transthoracic (Complete) (12/30/2011 9:47 AM EST) EF 55 [facility] Anatomical Region Laterality Modality Other 12/30/2011 Narrative 12/30/2011 10:02 AM EST Procedure: ? Transthoracic Echocardiogram Patient: ? ZACK AUSTIN P ?(Age): 1975(36) Med Rec#: ?[id number] ? Sex: ?M ? Site Loc: ?[facility] ? Ht / Wt: ??180(cm)/124(kg) Pt. Loc: ? Adult Floor ?BSA: ?2.41 Study Date: ?12/30/2011 ? Pt. Type: Inpatient Tape: ? Referring: Remigio Ceron Director Occupational: [employer] Diagnosis: ??Chest pain (786.50) CPT Code(s): ??Spectral Doppler (13852), ??Color Doppler (70075), ??Echo Full (75535), Indication(s): ??Chest Pain Rhythm: HR ?BP ?106/60 [...] 12/30/2011 10:01:28 Images reviewed and interpretation verified [facility] Cardiac Ultrasound Laboratory Procedure Note Zak Coley MD - 12/30/2011 Procedure: Transthoracic Echocardiogram Patient: ZACK MILLIGAN(Age): 1975(36) Med Rec#: [id number] Sex: M Site Loc: [facility] Ht / Wt: 180(cm)/124(kg) Pt. Loc: Adult Floor BSA: 2.41 Study Date: 12/30/2011 Pt. Type: Inpatient Tape: Referring: Remigio Ceron Director Occupational: [employer] Diagnosis: Chest pain (786.50) CPT Code(s): Spectral Doppler (09455), Color Doppler (77740), Echo Full (36334), Indication(s): Chest Pain Rhythm: HR BP 106/60 [...] 12/30/2011 10:01:28 Images reviewed and interpretation verified [facility] Cardiac Ultrasound Laboratory Remigio Ceron MD ECHO [...] Urine Dipstick Clear Clear [facility] MILLENNI[facility] Specific [place] Urine Automated 1.019 1.002 - 1.030 CERNER [...] In Lab Andi Rene MD URINE ORDERABLES [facility] * Rapid Qual Drug Screen, Urine ([facility]) (12/30/2011 9:32 AM EST) Pathologist [facility] U IVAN Screen See Note CERNER MILLENNIUM [...] testing device is being used in the [facility] Chemistry Laboratory. Please contact the chemistry laboratory at [phone] with questions. Urine specimen (specimen) 12/30/2011 9:32 AM EST 12/30/2011 9:45 AM EST Narrative Resulting Agency Comment Spec In Lab Andi Rene MD URINE ORDERABLES Performing Organization Address City/State/[facility] Phone Number CERQ[facility]U [facility] * Urine culture Clean Catch Urine (12/30/2011 9:31 AM EST) Urine Culture ? Patient Name: GEOVANNA DIXON JR Viet ?Ordered By: ANDI RENE ? MR#: [id number] ?LOC: [facility] ? /Sex: ?? 4 (36 [...] EST Remigio Ceron MD HEMATOLOGY ORDERABLE S [facility] * (ABNORMAL) CBC (with Diff) (12/30/2011 [...] Platelet Volume 10.6 9.0 - 12.0 fL [facility] Blood specimen (specimen) 12/30/2011 7:07 AM EST 12/30/2011 7:18 AM EST Narrative Resulting Agency Comment Spec In Lab Remigio Ceron MD HEMATOLOGY ORDERABLE S [facility] * Hemoglobin A1c (12/30/2011 7:07 AM EST) Hemoglobin A1c 6.1 4.3 - 6.1 % [facility] [facility] Estimated Average Glucose 128 mg/dL [facility] Comment: eAG equivalents for HbA1c percentages: [...] into estimated average glucose values. ??Diabetes Care 2008:31(8):2924-0876. Blood specimen (specimen) 12/30/2011 7:07 AM EST 12/30/2011 7:18 AM EST Narrative Resulting Agency Comment Spec In Lab Remigio Ceron MD CHEMISTRY ORDERABLES Performing Organization Address [facility] Phone Number [facility] * (ABNORMAL) APTT (12/30/2011 5:45 AM EST) Partial Thromboplastin Time 45(H) 25 - 35 sec [facility] Comment: Recommended therapeutic PTT range for full dose unfractionated heparin is 80-114 seconds. Blood specimen (specimen) 12/30/2011 5:45 AM EST 12/30/2011 6:10 AM EST Narrative Resulting Agency Comment Spec In Lab Andi Rene MD HEMATOLOGY ORDERABLE S Performing Organization Address [facility] Phone Number [facility]AN [facility] * (ABNORMAL) Glucose, fasting (12/30/2011 5:45 AM EST) Glucose Fasting 108(H) 65 - 99 mg/dL [facility] Comment: ?Fasting* Glucose Interpretive Criteria [...] of Diabetes Mellitus, Position Statement from the [place] Diabetes Association. ??Diabetes Care, Volume 33, Supplement 1, Nov 2009 Blood specimen (specimen) 12/30/2011 5:45 AM EST 12/30/2011 6:10 AM EST Narrative Resulting Agency Comment Spec In Lab Remigio Ceron MD CHEMISTRY ORDERABLES Performing Organization Address [facility] Phone Number [facility] * (ABNORMAL) Triglyceride (12/30/2011 5:45 AM EST) Triglyceride 245(H) <=149 mg/dL [facility] Comment: Reference Range: Normal triglycerides: ??<150 mg/dL Borderline high: ??150-199 mg/dL High: ??200-499 mg/dL Very high: ??>jq=829 mg/dL ELISEO 2001; 285(19):2112-7649 Blood specimen (specimen) 12/30/2011 5:45 AM EST 12/30/2011 6:10 AM EST Narrative Resulting Agency Comment Spec In Lab Remigio Ceron MD CHEMISTRY ORDERABLES [facility] * (ABNORMAL) HDL/Cholesterol Profile (12/30/2011 5:45 AM EST) Cholesterol, Total 170 <=199 mg/dL [facility] Comment: Recommendations of the NCEP Adult Treatment Panel for the following risk cutoff thresholds for the [place] population: Desirable: <200 mg/dL Borderline High: 200-239 mg/dL High: > or = 240 mg/dL HDL Cholesterol 36(L) >=40 mg/dL [facility] Comment: Reference range: ??Low HDL: ?? < 40 mg/dL ??Normal: ?40-60 mg/dL ??Desirable: > 60 mg/dL ELISEO 2001; 285(19):1086-8044 Cholesterol/HDL Ratio 4.7 ratio [facility] Comment: A Cholesterol to HDL ratio below 4:1 is desirable. ??Studies suggest that increased CAD risk occurs at ratios above 5 for females and above 6 for men. ? [place] Heart Association ??(http://www.americanheart.org) ? Jazmine Int Med, 1994; 121:641 ? AM J Med, 1998; 105(1A):48S Blood specimen (specimen) 12/30/2011 5:45 AM EST 12/30/2011 6:10 AM EST Narrative Resulting Agency Comment Spec In Lab Remigio Ceron MD CHEMISTRY ORDERABLES Performing Organization Address [facility] de Phone Number [facility] * (ABNORMAL) LDL Cholesterol, Direct (12/30/2011 5:45 AM EST) Pathologist [facility] LDL Cholesterol, Direct 110(H) <=99 mg/dL [facility] Comment: The National Cholesterol Education Program (NCEP) has set the following guidelines for LDL Cholesterol: Reference range: ?? Optimal: ?<100 mg/dL ?? Near Optimal/Above Optimal: ?? 100-129 mg/dL ?? Borderline high: ?130-159 mg/dL ?? High: ? 160-189 mg/dL ?? Very high: ?>pl=294 mg/dL ELISEO 2001: 285(19):7505-7099 Blood specimen (specimen) 12/30/2011 5:45 AM EST 12/30/2011 6:10 AM EST Narrative Resulting Agency Comment Spec In Lab Remigio Ceron MD CHEMISTRY ORDERABLES Performing Organization Address [facility] de Phone Number [facility] * (ABNORMAL) Cardiac Enzymes (12/30/2011 5:45 AM EST) [facility] Troponin-T 0.05(H) <=0.03 ng/mL [facility] Comment: 0.03 ng/mL: Represents the 99th percentile upper reference limit for normals. >0.03 ng/mL: Elevated cardiac troponin T level indicative of myocardial damage. Diagnosis of acute, evolving or recent FL requires a typical rise and gradual fall [...] consensus document of the Joint Society of Cardiology/[place] College of Cardiology Committee for the redefinition of myocardial infarction. Journal of the [place] College of Cardiology 2000; 36: 959-969] Creatine [...] HEMATOLOGY ORDERABLE S Performing Organization Address [facility] Co de Phone Number ARIAN NELSON * (ABNORMAL) Cardiac Enzymes (12/29/2011 11:29 PM EST) Troponin-T 0.08(H) <=0.03 ng/mL [facility] Comment: 0.03 ng/mL: Represents the 99th percentile upper reference limit for normals. >0.03 ng/mL: Elevated cardiac troponin T level indicative of myocardial damage. Diagnosis of acute, evolving or recent FL requires a typical rise and gradual fall [...] consensus document of the Joint Society of Cardiology/[place] College of Cardiology Committee for the redefinition of myocardial infarction. Journal of the [place] College of Cardiology 2000; 36: 959-969] Creatine Kinase 86 0 - 200 unit/L ARIAN [employer] Blood specimen (specimen) 12/29/2011 11:29 PM EST 12/29/2011 11:34 PM EST Narrative Resulting Agency Comment Spec In Lab Remigio Ceron MD CHEMISTRY ORDERABLES Performing Organization Address [facility] Co de Phone Number ARIAN NELSON * Prothrombin Time (12/29/2011 11:29 PM EST) Prothrombin Time 13.2 11.9 - 14.7 sec [facility]AN [facility] Comment: [facility] Transfusion Committee Guidelines: INR less [...] Lab Remigio Ceron MD HEMATOLOGY ORDERABLE S [facility] MILL[facility]UM * Hepatic Function Panel (12/29/2011 11:29 [...] MD CHEMISTRY ORDERABLES Performing Organization Address [facility] Co de Phone Number CERNER ROBYENNIUM * pro-Brain Natriuretic Peptide (12/29/2011 11:29 PM EST) NT-proBNP 114 <=125 pg/mL [facility] MILLENNIUM Blood specimen (specimen) 12/29/2011 11:29 PM EST 12/29/2011 11:34 PM EST Narrative Resulting Agency Comment Spec In Lab Remigio Ceron MD CHEMISTRY ORDERABLES [facility] * TSH (12/29/2011 11:29 PM EST) Thyroid Stimulating Hormone 0.39 0.27 - 4.20 mcIU/mL [facility] MILLENNIUM Blood specimen (specimen) 12/29/2011 11:29 PM EST 12/29/2011 11:34 PM EST Narrative Resulting Agency Comment Spec In Lab Remigio Ceron MD CHEMISTRY ORDERABLES Performing Organization Address [facility] Phone Number CERBRIAN CAENNIUM * Phosphorus (12/29/2011 11:29 PM EST) Phosphorus 3.1 2.5 - 4.5 mg/dL [facility] MILLENNIUM Blood specimen (specimen) 12/29/2011 11:29 PM EST 12/29/2011 11:34 PM EST Narrative Resulting Agency Comment Spec In Lab Remigio Ceron MD CHEMISTRY ORDERABLES Performing Organization Address [facility] Phone Number CERBRIAN ACENNIUM * Magnesium (12/29/2011 11:29 PM EST) Magnesium 0.83 0.69 - 1.07 mmol/L [facility]ER MILLENNIUM Blood specimen (specimen) 12/29/2011 11:29 PM EST 12/29/2011 11:34 PM EST Narrative Resulting Agency Comment Spec In Lab Remigio Ceron MD CHEMISTRY ORDERABLES Performing Organization Address [facility] de Phone Number CERBRIAN CAENNIUM [...] Cell 18.5(H) 4.0 - 10.0 x10(3)/mc L [facility] Red Blood Cell 4.50(L) 4.63 - 6.08 x10(6)/mc L [facility] Hemoglobin 13.9 13.7 - 17.5 gm/dL [facility] Hematocrit 39.6(L) 40.0 - 51.0 % CERNER MILLENNIUM Mean Cell Volume 88.0 79.0 - 92.0 fL CERNER MILLENNIUM Mean Cell Hemoglobin 30.9 25.6 - 32.2 pg CERNER MILLENNIUM Mean Cell Hemoglobin Concentration 35.1 32.0 - 36.5 gm/dL [facility] Platelet 221 145 - 370 x10(3)/mc L [facility] RDW Standard Deviation 42.0 35.0 - 46.0 fL CERNER MILLENNIUM RDW coefficient of variation 13.0 10.9 - 14.4 % CERNER MILLENNIUM Mean Platelet Volume 10.5 9.0 - 12.0 fL [facility] Blood specimen (specimen) 12/29/2011 11:29 PM EST 12/29/2011 11:34 PM EST Narrative Resulting Agency Comment Spec In Lab Remigio Ceron MD HEMATOLOGY ORDERABLE S Performing Organization Address [facility] de Phone Number [facility] * APTT (12/29/2011 11:29 PM EST) Partial Thromboplastin Time 34 25 - 35 sec [facility] MILL[facility]UM Comment: Recommended therapeutic PTT range for full dose unfractionated heparin is 80-114 seconds. Blood specimen (specimen) 12/29/2011 11:29 PM EST 12/29/2011 11:34 PM EST Narrative Resulting Agency Comment Spec In Lab Remigio Ceron MD HEMATOLOGY ORDERABLE S Performing Organization Address [facility] Co de Phone Number [facility] * EKG 12 Lead (12/29/2011 11:13 PM EST) Ventricular rate 108 BPM MUSE SYSTEM Atrial Rate 108 BPM MUSE SYSTEM P-R Interval 150 ms MUSE SYSTEM QRS Duration 106 ms MUSE SYSTEM Q-T Interval 340 ms MUSE SYSTEM QTC Calculated (Bezet) 455 ms MUSE SYSTEM Calculated P [place] 19 degrees MUSE SYSTEM Calculated R [place] 31 degrees MUSE SYSTEM Calculated T [place] 51 degrees MUSE SYSTEM INTERPRETATION Sinus tachycardia [...] Provider: Hermila Dumas RN)111 (Given - Provider: Micehlle Chong RN)2000 (Given - Provider: Hermila S Westney, RN) 0315 (Given - Provider: Hermila Dumas [...] 1659, Heartburn, Routine 0707 (Given - Provider: Hemrila Dumas RN) HYDROmorphone (DILAUDID) tablet 2-6 mg [...] Hermila Dumas RN)0416 (Given - Provider: Hermila Dumas, DAVID)0526 (Given - Provider: Hermila Dumas RN)0630 (Given [...] Routine documented in this encounter Care Teams Customer Support Technician Relationship Specialty Start Date End Date Patric Al MD PCP - General 12/29/11 02/26/19 documented as of this encounter
--- OUTSIDE RECORDS SUMMARY | 2024-10-31 15:47 | XMS_ITS | Encounter Summary ---
[place] [address] Care Team Providers Care Project Finance Analyst Name Role Phone Guanako Gusman MD Primary Care Provider [phone] Encounter Details Date Type Department Care Team (Late st Contact Info) Description 01/04/2012 12:13 PM EST Anesthesia Event [place] [address] Rodrigo Montgomery MD Anesthesia Record Procedure Summary Procedure Name Responsible [...] Removal Time: 191301/04/12 0000 by Vangie Castro, MUSIC MINISTRIES DIRECTOR 01/04/121913 by Bhumi Goldberg RCP documented in [...] GRAFT;SINGLE VEIN GRAFT Patient location: [facility] Surgical Floor Post-op pain: Adequate analgesia Post-op [...] PM EST Office [place] [phone] Isabela Hayward APRN [facility] [place] [address] 11/10/2024 10:00 AM EST Office [place] [phone] Dai Whitman APRN 11/21/2024 2:15 PM EST Office [place] [phone] Dayanara Grover MD [facility] [place] [address] documented as of this encounter Visit Diagnoses Not on filedocumented in this encounter Care Teams Project Finance Analyst Relationship Specialty Start Date End Date Guanako Gusman MD PCP - General 12/29/11 02/26/19 documented as of this encounter
--- OUTSIDE RECORDS SUMMARY | 2024-10-31 15:48 | XMS_ITS | Encounter Summary ---
Author Organization [facility] Address [facility] [place] [address] Care Team Providers Care Double End Tenoner Operator Name Role Phone Guanako Gusman MD Primary Care Provider Encounter Details Date Type Department Care Team (Late st Contact Info) Description 12/29/2011 Orders Only Cardiology at [address] [phone] Sarthak Pollard MD [facility] [address] Social History Tobacco Use Types [...] PM EST Office [place] [address] Isabela Hayward APRN [facility] [place] [address] 11/10/2024 10:00 AM EST Office [place] [address] Whitman Dai uCnningham, CHAIN CARRIER 11/21/2024 2:15 PM EST Office [place] [address] Dayanara Grover MD [facility] [place] [address] documented as of this encounter Procedures Procedure [...] is a non-reportable exam. Sarthak Pollard MD G FILM LIBRARY ORD ERABLES [facility] [address] [facility] [place] [address] documented in this encounter Visit Diagnoses Not on filedocumented in this encounter Care Teams Double End Tenoner Operator Relationship Specialty Start Date End Date Guanako Gusman MD PCP - General 12/29/11 02/26/19 documented as of this encounter
--- OUTSIDE RECORDS SUMMARY | 2024-10-31 15:48 | XMS_ITS | Encounter Summary ---
Author Organization [facility] Address [address] [place] [address] Care Team Providers Care Industrial Real Estate Agent Name Role Phone JorgeAinsleytierra Llanos COSMETIC SURGEON Primary Care Provider [phone] Encounter Details Date Type Department Care Team (Late st Contact Info) Description 12/03/2022 Lab Requisition [facility] Pathology & Laboratory Medicine - [address] [address] Outr Resulting Lab, Provider Social History Tobacco [...] C Antibody Negative Negative 12/04/2022 8:56 EST [facility] Blood VENOUS BLOOD / Unknown 12/02/2022 11:40 EST 12/03/2022 17:36 EST us Provider Outr Resulting Lab CHEMISTRY & BLOOD GA S ORDERABLES Final Result [facility] [address] [place] [address] documented in this encounter Visit Diagnoses Not on filedocumented in this encounter Care Teams Industrial Real Estate Agent Relationship Specialty Start Date End Date Cameron Patel, COSMETIC SURGEON [address] [place] [phone] PCP - General 10/22/09 documented as of this encounter
--- OUTSIDE RECORDS SUMMARY | 2024-10-31 15:48 | XMS_ITS | Encounter Summary ---
Author Organization [facility] Address [address] [place] [address] Care Team Providers Care Director [employer] Name Role Phone JorgeAinsleytierra Llanos CURATOR HERBARIUM Primary Care Provider [phone] Encounter Details Date Type Department Care Team (Late st Contact Info) Description 12/03/2022 Lab Requisition [facility] Pathology & Laboratory Medicine - [address] [address] Outr Resulting Lab, Provider Social History Tobacco [...] 4th Generation Negative Negative 12/04/2022 9:22 EST [facility] Comment:If acute HIV-1 infec tion is suspected in a high risk patient, submit plasma specimen for HIV-1 RNA quantitation test. Blood VENOUS BLOOD / Unknown 12/02/2022 11:40 EST 12/03/2022 17:37 EST Narrative [facility] - 12/04/2022 9:22 EST Fourth Generation assay performed on the Siemens Centaur XPT. us Provider Outr Resulting Lab IMMUNOLOGY AND SEROL OGY ORDERABLES Final Result [facility] [address] [place] [address] documented in this encounter Visit Diagnoses Not on filedocumented in this encounter Care Teams Director [employer] Relationship Specialty Start Date End Date Cameron Patel, CURATOR HERBARIUM [address] [place] [id number] PCP - General 10/22/09 documented as of this encounter
--- OUTSIDE RECORDS SUMMARY | 2024-10-31 15:48 | XMS_ITS | Referral Summary ---
Author Organization [facility] Address [address] [place] [address] Care Team Providers Care Rack Carrier Name Role Phone JorgeCameron Viet DISTRICT AGENT Primary Care Provider [phone] Medications LOSARTAN POTASSIUM (COZAAR ORAL) Take by [...] C Antibody Negative Negative 12/04/2022 8:56 EST [facility] Blood VENOUS BLOOD / Unknown 12/02/2022 11:40 EST 12/03/2022 17:36 EST us Provider Outr Resulting Lab CHEMISTRY & BLOOD GA S ORDERABLES Final Result [facility] [address] [place] [address] from Last 3 Months or Most Recently Relevant to Health Maintenance Care Teams Rack Carrier Relationship Specialty Start Date End Date Cameron Patel, DISTRICT AGENT [address] [facility] [place] [address] PCP - General 10/22/09
--- OUTSIDE RECORDS SUMMARY | 2024-10-31 15:48 | XMS_ITS | Encounter Summary ---
Author Organization [facility] Address [address] [place] [address] Care Team Providers Care Felt Hooker Name Role Phone Unavailable Primary Care Provider Unavailabl e Encounter Details Date Type Department Care Team (Late st Contact Info) Description 11/23/2005 14:17 EST Hospital Encounter [address] [address] Jorge Urrutia MD [address] [place] [phone] Social History Tobacco Use Types Packs/Day Years [...]
--- OUTSIDE RECORDS SUMMARY | 2024-10-31 15:48 | XMS_ITS | Clinical Summary ---
Author Organization [facility] Address [address] [place] [address] Care Team Providers Care Precision Structural Metal Fitter Name Role Phone Cameron Patel Viet TURBO GENERATOR OILER Primary Care Provider [phone] Medications LOSARTAN POTASSIUM (COZAAR ORAL) Take by [...] Negative Negative 12/04/2022 8:56 EST [facility] Blood VENOUS BLOOD / Unknown 12/02/2022 11:40 EST 12/03/2022 17:36 EST us Provider Outr Resulting Lab CHEMISTRY & BLOOD GA S ORDERABLES Final Result [facility] [address] [place] [address] from Last 3 Months or Most Recently Relevant to Health Maintenance Care Teams Precision Structural Metal Fitter Relationship Specialty Start Date End Date Cameron Patel, TURBO GENERATOR OILER [address] [place] [phone] PCP - General 10/22/09
--- OUTSIDE RECORDS SUMMARY | 2024-10-31 15:48 | XMS_ITS | Encounter Summary ---
Author Organization [facility] Address [address] [place] [address] Care Team Providers Care Mangle Press Catcher Name Role Phone JorgeCameron Viet COMPLIANCE PARALEGAL Primary Care Provider [phone] Encounter Details Date Type Department Care Team (Late st Contact Info) Description 10/02/[address] [facility] Pathology & Laboratory Medicine - [address] [address] Outr Resulting Lab, Provider Social History Tobacco [...] 4th Generation Negative Negative 10/22/2020 13:59 EST [facility] Comment: If acute HIV-1 infection is suspected in a high risk ??patient, submit plasma specimen for HIV-1 RNA quantitation test. Fourth Generation assay performed on the Siemens Centaur. Blood VENOUS BLOOD / Unknown 09/19/2020 16:00 EST 10/22/2020 7:12 EST us Provider Outr Resulting Lab IMMUNOLOGY AND SEROL OGY ORDERABLES Final Result [facility] [address] [place] [address] documented in this encounter Visit Diagnoses Not on filedocumented in this encounter Care Teams Mangle Press Catcher Relationship Specialty Start Date End Date Cameron Patel, COMPLIANCE PARALEGAL [address] [facility] [place] [phone] PCP - General 10/22/09 documented as of this encounter
--- OUTSIDE RECORDS SUMMARY | 2024-10-31 15:48 | XMS_ITS | Encounter Summary ---
Author Organization [facility] Address [address] [place] [address] Care Team Providers Care Field Sales Associate Name Role Phone Unavailable Primary Care Provider Unavailabl e Encounter Details Date Type Department Care Team (Late st Contact Info) Description 03/09/2008 Before PRISM Converted Visit (Maple) [facility] - Maple conversion [address] [place] [address] Wil Tay MD [address] [address] Social History Tobacco Use Types [...] EDT March 09, 2008 Anna Hoang MD [facility] [address] [address] Dear Anna: Thank you for referring Mr. [...] and an EEG that was normal in [place], [place]. He currently is taking [...] He denies symptoms of restless legs. His [place] sleepiness is 23/24. PAST MEDICAL HISTORY Hypertension. He has just recently developed hypertension. He did not respond well to lisinopril, so he is currently on Cozaar and this has been helping his blood pressure some. It has not worsened his cataplexy any. ALLERGIES No known drug allergies. MEDICATIONS Cozaar, methylphenidate, amphetamine, clomipramine, Provigil, Effexor, Viagra, Rolaids, and Tylenol. SOCIAL HISTORY He has a 90-ltjt-slhj history of smoking, which is a lot for a young man like him. He drinks 8-12 cups of coffee a day. No other caffeine intake. No alcohol. No drug use. 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 Coordination: Normal [id number] and dqwror-zc-fbpn and rapid alternating movements. DTRs are +2 [...] hometown. 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, [place] [address]* documented in this encounter Plan of Treatment Not on file documented as of this encounter Visit Diagnoses Not on filedocumented in this encounter
--- OUTSIDE RECORDS SUMMARY | 2024-10-31 15:48 | XMS_ITS | Encounter Summary ---
[place] [address] Care Team Providers Care Railroad Shop Inspector Name Role Phone Patric Al MD Primary Care Provider [phone] Encounter Details Date Type Department Care Team (Late st Contact Info) Description 12/30/2011 9:30 AM EST - 12/30/2011 10:51 AM [place] [address] Sarthak Oliveros MD CARDIAC CATHETERIZATION Social History Tobacco Use Types [...] 12:11 PM EST Geovanna Dixon Jr. 1975 [id number] New Diagnosis of Pre-Diabetes For discharge should [...] Some considerations about using metformin in Prediabetics: [place] Diabetes Prevention Program (DPP) as well as other minor studies and meta-analyses has convincingly demonstrated the efficacy of metformin in this patient group [pre-diabetics]. In addition, results of the 10 year DPP follow up have recently been published, demonstrating the prison safety and sustainability of metformin treatment benefits [...] - will be starting Cardiac rehab at [facility], encouraged to increase physical activity as advised by cardiologists Weight Loss - A 7% weight loss could significantly improve his BG control Tobacco cessation - There is growing evidence that cigarette smokers are more prone than the general population to develop T2DM. Increase in insulin resistance with tobacco use. Darcie Lange APRN [facility] Endocrinology Diabetes Management [phone] * Patient Instructions* Ricky Graham PA - [...] Anne Tovar and/or the Cardiothoracic Surgery Physician E Commerce Strategist Team may be reached at . Activity [...] Dr. Inna Tovar. You may use a [place] Track or treadmill but avoid any pulling [...] friends, go to a movie, go to gnosticism, etc. Heavy activities: No hunting, skiing, jogging, [...] would be to continue to go [place]. He has quit this way before and [...] only 10% of those who quit [place] are able to be successful. The calculated savings once he quits smoking would be $54 a week, $234 a month, and $2803 a year. If he quits now his savings will be $28,030 in 10 years. The patient was provided with a [facility] Smoking Cessation packet and the contents have been reviewed with him. The patient now has the Quit line number for [place] and has also been encouraged to use [...] given to patient. Discharge summary faxed to [facility] and receipt confirmed via phone. Patient discharged to home with son. * Adebayo Mcgarry POWER HAMMER OPERATOR - 01/08/2012 11:42 AM EST Physical Therapy [...] outpatient basis Equipment needs: none ADEBAYO Cunningham XIN MCGARRY Pager: [phone] Physical Therapy Rehabilitation Department * Michelle Chong [...] services. Patient would like VNA services through [facility] [employer] [facility]. PHONE: [phone] FAX: [phone]. Referral made via E-discharge. Please see home care orders that must be included in discharge summary for VN services to start. Patient has glucometer and supplies at bedside. Pt. Denies any further needs from [facility]. Pt. Gets scripts through [place] Medicaid with co-pay. He denies any concerns related to co-pay. * Darcie Lange, SALES AND SERVICE ADVISOR - 01/07/2012 9:57 AM EST Geovanna Dixon Jr. 1975 [id number] PATRIC AL MD Follow Up Diabetes Consult [...] Some considerations about using metformin in Prediabetics: [place] Diabetes Prevention Program (DPP) as well as other minor studies and meta-analyses has convincingly demonstrated the efficacy of metformin in this patient group [pre-diabetics]. In addition, results of the 10 year DPP follow up have recently been published, demonstrating the steam setter safety and sustainability of metformin treatment benefits [...] - will be starting Cardiac rehab at [facility], encouraged to increase physical activity [...] sensitive Novolog correction only Darcie Lange APRN [facility] Endocrinology Diabetes Management [phone] Pager [phone] This case was discussed with Dr. Christina Brody. 25 min time spent in patient care with 20 counseling, seeing patient, changing orders and discussion with the patient and the primary team as well as nursing. * Inna Tovar MD - 01/07/2012 9:39 AM EST Cardiac Surgery Progress Note: ID: [id number] 36/M POD #[address] Tovar [...] results found for this basename: phart, po2art, knl9acc Assessment/Plan: Pathway. Neuro: ambulating on own per [...] D/C tomorrow or Wednesday. * Juliana Nam Guerrero, PT - 01/07/2012 12:00 AM EST Physical [...] home. (ie take out the trash or clam picker his child) Objective:Pt was seen today [...] interventions: 30 minutes NAM TRINIDAD, PT Pager: [phone] Physical Therapy Rehabilitation Department * Vibha Martines [...] INNA TOVAR at [facility] OR ??? Cabg, artery-vein, single 01/04/2012 @CABG, VENOUS & ARTERIAL GRAFT;SINGLE VEIN GRAFT performed by INNA TOVAR at [facility] OR Outpatient prescriptions marked as [...] yes Date: 12/29/11 Why then: Admission to [facility] What will be different this time: Just [...] in places where it is forbidden ex gnosticism No Yes 0 3. Which cigarette would [...] would be to continue to go [place]. He has quit this way before and it lasted several years, so he has a history of being successful with this method. He also pointed out that his father and an uncle quit (for now over 10 years) by going [place]. I told him that it is difficult to recommend a quit method that has a 90% failure rate, but that said, it is his choice and that I would provide him with a toolkit of information so that he will be as knowledgeable as possible about nicotineaddiction and how to stay quit. And we do know that 10% of those who quit [place] are able to be successful. I calculated and shared with him that his savings once he quits smoking would be $54 a week, $234 amonth, and $2803 a year. If he quits now his savings will be $28,030 in 10 years. The patient has also been provided with a [facility] Smoking Cessation packet and the contents have been reviewed with him. The patient now has the Q[place] line number for [place] and has also been encouraged to use this if needed for support. In addition he was in agreement with a referral to the [place] Quitnetworkand I have FAXed a referral to [...] VISIT: 60 minutes PATRIC AL MD * Tony-Ariela Holloway DT - 01/06/2012 3:51 PM EST Nutrition Services - Education Note Geovanna Dixon Jr. : 1975 AGE: 36 y.o. MedDx/PMHx: s/p CABG x 2 Reason for Nutrition Intervention: Hospital Day 9 Diet Order: [facility] Appetite: fair Food allergies: none Chewing/Swallowing difficulty: none Height: (cm) 180.3 Weight: (kg) 127.9 01/06/12 Wt hx: (kg) 124.5 12/29/11 BMI: 38.4 Education: [facility] dietary guidelines. Tips To Better Food Intake (Protein) dietary guidelines. Verbalized good understanding. Education material, with means of contact provided. Assessment: Patient verbalized good understanding of protein needs for healing as well as [facility] Heart Healthy guidelines. I have added high protein snacks between meals and CIB shakes to meal trays for extra protein/nutrition. Nutrition Plan: Diet: [facility] Recommend Daily Multi Vitamins. Added high protein snacks. CIB w/skim milk shakes three times per day. Encourage good po intake. Monitor weight. Support and encouragement provided. Nutrition services to follow weekly thru hospital course unless consulted in the interim. ACOSTA SMALL * Inna Tovar MD - 01/06/2012 1:50 PM EST Cardiac Surgery In Patient Progress Note Patient Name: Geovanna Dixon Jr. : [id number] MR#: [id number] Admitted: 12/29/2011 Hospital Day 8 days Problem [...] Hamlin RN - 01/06/2012 10:11 AM EST [facility] CARDIAC REHABILITATION Geovanna Dixon Jr. was seen today regarding participation in outpatient Phase 2 Cardiac Rehabilitation at [facility] . A referral will be sent to this program. The patient was given contact information and should expect to be contacted by the program within 1-2 weeks after discharge from [facility]. * Kareen Mendoza, PT - 01/05/2012 3:59 [...] INNA TOVAR at [facility] OR ??? Cabg, artery-vein, single 01/04/2012 @CABG, VENOUS & ARTERIAL GRAFT;SINGLE VEIN GRAFT performed by INNA TOVAR at [facility] OR Social History: Patient lives with [...] minutes brief evaluation KAREEN MENDOZA, PT Pager: [phone] Physical Therapy Rehabilitation Department * Camille Angulo [...] MD Financial Concerns: insured via Medicare and [employer] Transportation: With family members. Father was in room also and said he could drive as could step-daughter. Anticipated Services at Discharge: will require re-assessment closer to time of d/c. May need VNA. A: medical plan still evolving. P: This narrative writer or colleague from the Office of [...] FULL CODE Paola Akers PGY 1 Pager [phone] Attending Addendum: I spoke with the patient and his family briefly this am. I agree with the principal findings. The impression and plan incorporate my input. No contraindication to surgery today. Sarthak Pollard MD [facility] pager [phone] * Sarthak Pollard MD - 01/03/2012 11:08 [...] risk of aggravating CAD. Sarthak Pollard MD [facility] pager [phone] * Bal John MD - 01/02/2012 3:10 [...] Cristina Ambriz MD PGY1, Internal Medicine Pager [phone] 01/02/2012 Attending Addendum: I have interviewed and examined the patient. I agree with the principal findings. The impression and plan incorporate my input. As above, doing well. Will keep on heparin until surgery. No angina, HF, bleeding, or evidence of HIT. Sarthak Pollard MD [facility] pager [phone] * Inna Tovar MD - 01/01/2012 3:17 PM EST Please see Dr. Major's note from 12/31/11 for full details. Briefly, Mr. Dixon developed unstable angina and ruled in for PA. Cath shows severe 3 vessel disease. Echo [...] mg BID Paola Akers PGY 1 Pager [phone] Attending Addendum: I have interviewed and examined the patient. I agree with the principal findings. The impression and plan incorporate my input. He is disappointed that his surgery has been postponed until Wednesday butunderstands. He remains cp free. I've reviewed his angiograms and believe he needs to stay on heparin until surgery. All questions answered. Sarthak Pollard MD [facility] pager [phone] * Andi Rene MD - 12/31/2011 5:20 [...] mg BID Paola Akers PGY 1 Pager [phone] Cardiology Attending Progress Note Addendum: I have [...] would like to attend cardiac rehab at [facility] in [facility]. We will meet him again [...] Call saucedo within reach, family at bedside. 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 documented in this encounter H&P Notes [...] motorcycles and hunting He is NOT a yazidi FHx: Heart disease on both sides of the family Father's side with multiple uncles with PA's, one at age of 40 Mother's side with uncle at age 50 from [place] Diabetes in mother ROS: Positive headache, nausea [...] 13.2 12/29/2011 PTT 31 12/30/2011 Troponins at [facility]: 0.05-->0.03 Imaging: Echo 12/30/11: 1. The left [...] loss were emphasized as they relate to steam setter patency of his grafts. He should receive smoking cessation counseling donya. One post op consideration will be vent wean and respiratory status given likely underlying CAMILLA and his known narcolepsy. Pre op orders written, heparin gtt to stop international trade manager to OR. Pt seen and interviewed with [...] +active 25 pack year smoker comes to [facility] from [facility] for evaluation of intermittent [...] history (both paternal grandparents passing away from [facility] and paternal aunts/uncles with histories of [...] FULL Provider: REMIGIO CERON MD Pager #: [phone] documented in this encounter Procedure Notes * Provider, Scanning - 01/10/2012 1:46 PM ESTAssociated Order(s): SCAN DOC: RAILROAD CONDUCTOR * Provider, Scanning - 01/10/2012 1:46 PM [...] 3:45 PM EST Geovanna Dixon Jr. 1975 [id number] Inpatient Endocrinology Glucose Management Consult Date of Consultation: 01/06/2012 Place of Consultation: [facility] Consult Requested by: Dr. Tovar, [place] Surgery Reason for Consultation: Geovanna Dixon Jr. is a 36 y.o. male who was admitted on 12/29/2011 for the diagnosis of CAD now s/p CABG x2 with Dr. Tovar, POD #2. We are asked to see him to assist with diabetes management and to provide a review of his steam setter diabetes plan. Diabetes History: Geovanna Dixon Jr. [...] Diabetes Care: Medications: None Monitoring: None Diet: [facility] Healthy No Known Allergies Past Medical History: [...] considerations about using metformin in Prediabetics: ?? [place] Diabetes Prevention Program (DPP) as well as other minor studies and meta-analyses hasconvincingly demonstrated the efficacy of metformin in this patient group [pre-diabetics]. In addition, results of the 10 year DPP follow up have recently been published, demonstrating the steam setter safety and sustainability of metformin treatment benefits [...] - will be starting Cardiac rehab at [facility], encouraged to increase physical activity [...] metformin 500 mg QD Darcie Lange APRN [facility] Endocrinology Diabetes Management [phone] Pager [phone] This case was discussed with Dr. Christina Bordy. 35 min time spent in patient care [...] Course: Geovanna Dixon Jr. was admitted to [facility] on 12/29/2011 to the cardiologyservice for [...] Medications: Geovanna Dixon Jr. Home Medication Instructions CRAIG:[id number] Printed on:01/08/12 1208 Medication Information simvastatin (ZOCOR) 20 mg tablet [...] Anne Tovar and/or the Cardiothoracic Surgery Physician E Commerce Strategist Team may be reached at . Activity [...] Dr. Inna Tovar. You may use a [place] Track or treadmill but avoid any pulling [...] friends, go to a movie, go to gnosticism, etc. Heavy activities: No hunting, skiing, jogging, [...] would be to continue to go [place]. He has quit this way before and [...] only 10% of those who quit [place] are able to be successful. The calculated savings once he quits smoking would be $54 a week, $234 a month, and $2803 a year. If he quits now his savings will be $28,030 in 10 years. The patient was provided with a [facility] Smoking Cessation packet and the contents have been reviewed with him. The patient now has the Quit line number for [place] and has also been encouraged to use this ifneeded for support. In addition he was in agreement with a referral to the [place] Quitnetwork and a referral was faxed to [...] Some considerations about using metformin in Prediabetics: [place] Diabetes Prevention Program (DPP) as well as other minor studies and meta-analyses has convincingly demonstrated the efficacy of metformin in this patient group [pre-diabetics]. In addition, results of the 10 year DPP follow up have recently been published, demonstrating the steam setter safety and sustainability of metformin treatment benefits [...] - will be starting Cardiac rehab at [facility], encouraged to increase physical activity as advised by cardiologists Weight Loss - A 7% weight loss could significantly improve his BG control Tobacco cessation - There is growing evidence that cigarette smokers are more prone than the general population to develop T2DM. Increase in insulin resistance with tobacco use. Darcie Lange APRN [facility] Endocrinology Diabetes Management [phone] Medications: Take only those medications listed on [...] should resume a low fat, low cholesterol, [place] Heart Association Diet. Driving: No driving for [...] in outpatient Phase 2 Cardiac Rehabilitation at [facility] . A referral will be sent to this program. He was given contact information and shouldexpect to be contacted by the program within 1-2 weeks after discharge from [facility]. Arrangements for VNA/home care: PATIENT'S LOCATION: Geovanna Dixon Jr. [address] [place] [address] There is no home phone number on file. Telephone Information: In discussion with the attending physician, it is certified that this patient is under their care and that they, or a nurse practitioner, clinical nurse specialist or physician's purchasing administrative assistant who is working directly with [...] for services as follows: HOME HEALTH AGENCY: [facility]. PHONE: [phone] FAX: [phone] RN orders: Cardiopulmonary assessment, incisional assessment, assess [...] issues please call the Cardiac SurgeryOffice at [phone] FOR MEDICARE ONLY: (please delete this section if not Medicare) In discussion with the attending physician, it is certified that the clinical findings support thatthis patient is homebound (i.e. absences from home require considerable and taxing effort and are for medical reasons or jehovah's witness services of infrequently or of short duration [...] nurse practitioner, clinical nurse specialist or physician's purchasing administrative assistant who is working directly with [...] effort and are for medical reasons or jehovah's witness services of infrequently or of short duration when for other reasons) Please note that any additional orders needs or changes will need to be obtained from this patient's PCP: PATRIC AL MD [phone] All VNA agencies which cover the area of patient's residence have been reviewed, either verbally feli writing, and patient/family have chosen the indicated home health care agency for home services. Comments: Questions: Responses: Agency name and contact information [facility] Patient location post discharge home What services are requested Start date 01/10/2012 Responsible MD post discharge contact info PCP RN to remove chest tube sutures on or after 01/13/12. Signed: Ricky Graham PA-C [facility] Section of Cardiothoracic Surgery Date: 01/08/12 CC: MD CARLOS MENDEZ [facility] EMERGENCY DEPT [address] [place] [address] [place] [address] * Op Note - Inna Tovar MD - 01/04/2012 3:55 PM EST [facility] Operative Note Patient Name: Geovanna Dixon Jr. : [id number] MR#: [id number] Case Date: 01/04/2012 Surgeon: Surgeon(s) and Role: [...] enlarged. There was diffuse disease in all [place] vessels. The OFELIA and vein were of excellent quality. The lungs had early emphysematous changes. Procedure Details: The patient was brought to the operating room and given general anesthesia. A Kake-Haley catheter, radial arterial line, and Mendez catheter [...] fter inspection for adequate hemostasis, two #28 English chest tubes were placed and brought out [...] Note Patient Name: Geovanna Dixon Jr. 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 No recent out door activities [...] likely. (Leukocytosis may be r/t stress of PA.) Bacteremia as a complication of his cath, [...] PM EST Office [place] [phone] Isabela Hayward APRN [facility] [place] [address] 11/10/2024 10:00 AM EST Office [place] [phone] Dai Whitman APRN 11/21/2024 2:15 PM EST Office [place] [phone] Dayanara Grover MD [facility] [place] [address] Scheduled Referrals Name Type Priority Associated Diagnoses Orde r Schedule REFERRAL TO CARDIAC REHAB Outpatient Referral Routine Chest pain Ordered: 01/08/2012 documented as of this encounter Procedures Procedure Name Priority Date/Time Associated Diagnosis Comments CARDIAC CATHETERIZATION Routine 01/11/20 12 11:04 AM EST LAB SCAN 01/10/2012 1:46 PM EST RAILROAD CONDUCTOR SCAN 01/10/2012 1:46 PM EST CARDIAC CATH [...] 01/05/20 12 2:00 AM EST CARDIAC ENZYMES ([facility]/CGP) Routine 01/05/2012 2:00 AM EST CREATININE Routine [...] 12/30/2011 4:25 PM EST TYPE AND SCREEN ([facility]/CGP/BABITA) Routine 12/30/2011 4:14 PM EST CARDIAC ENZYMES ([facility]/CGP) STAT 12/30/2011 2:08 PM EST APTT STAT 12/30/2011 2:08 PM EST HIV SCREEN, 4TH GENERATION ([facility]/CGP/APD/NLH) Routine 12/30/2011 10:18 AM EST ECHOCARDIOGRAM TRANSTHORACIC [...] Routine 12/30/2011 7:07 AM EST CARDIAC ENZYMES ([facility]/CGP) STAT 12/30/2011 5:45 AM EST APTT STAT 12/30/2011 5:45 AM EST TRIGLYCERIDE Routine 12/30/2011 5:45 AM EST LDL CHOLESTEROL, DIRECT Routine 12/30/19 5:45 AM EST HDL/CHOL PROFILE Routine 12/30/2011 5:45 AM EST GLUCOSE, FASTING Routine 12/30/2011 5:45 AM EST XR CHEST PA AND LATERAL Routine 12/29/19 12 11:59 PM EST SCAN, PERIPHERAL BLOOD STAT 2 11:29 PM EST DIFFERENTIAL, AUTOMATED STAT 12/29/19 12 11:29 PM EST CARDIAC ENZYMES ([facility]/CGP) STAT 12/29/2011 11:29 PM EST APTT STAT [...] (Bezet) 453 ms MUSE SYSTEM Calculated P [place] 41 degrees MUSE SYSTEM Calculated R [place] 25 degrees MUSE SYSTEM Calculated T [place] 74 degrees MUSE SYSTEM INTERPRETATION Sinus tachycardia [...] SCAN EXT O RDR/RSLT * SCAN DOC: RAILROAD CONDUCTOR (01/10/2012 1:46 PM EST) Anatomical Region Laterality Modality Other Narrative 01/11/2012 8:32 AM EST Procedure Note Provider, Scanning - 01/10/2012 1:46 PM EST Scanning Provider MEDIA MGR SCAN EXT O RDR/RSLT * POCT GLUCOSE LAB USE ONLY (01/08/2012 12:00 PM EST) Glucose, POC 106 60 - 199 mg/dL [facility] Comment: Supplemental ranges: <110 mg/dL before meals <200 mg/dL all other times of the day Blood specimen (specimen) 01/08/2012 12:00 PM EST 01/08/2012 12:00 PM EST Andi Rene MD POINT OF CARE TEST O RDERABLES [facility] * Potassium (01/08/2012 10:05 AM EST) Pathologist [facility] Potassium 4.2 3.5 - 5.0 mmol/L [facility] Comment: Please note: ??Patients with [...] ORDERABLES Performing Organization Address [facility] de Phone Number [facility] * POCT GLUCOSE LAB USE ONLY (01/08/2012 7:21 AM EST) Glucose, POC 144 60 - 199 mg/dL [facility] Comment: Supplemental ranges: <110 mg/dL before meals <200 mg/dL all other times of the day Blood specimen (specimen) 01/08/2012 7:21 AM EST 01/08/2012 7:21 AM EST Andi Rene MD POINT OF CARE TEST O GILDA Performing Organization Address [facility] de Phone Number [facility] * POCT GLUCOSE LAB USE ONLY (01/07/2012 8:43 PM EST) Glucose, POC 179 60 - 199 mg/dL [facility] Comment: Supplemental ranges: <110 mg/dL before meals <200 mg/dL all other times of the day Blood specimen (specimen) 01/07/2012 8:43 PM EST 01/07/2012 8:43 PM EST Andi Rene MD POINT OF CARE TEST O RDERAHERNANDEZ Performing Organization Address [facility] [place] de Phone Number [facility] * POCT GLUCOSE LAB USE ONLY (01/07/2012 4:47 PM EST) Glucose, POC 128 60 - 199 mg/dL [facility] Comment: Supplemental ranges: <110 mg/dL before meals <200 mg/dL all other times of the day Blood specimen (specimen) 01/07/2012 4:47 PM EST 01/07/2012 4:47 PM EST Andi Rene MD POINT OF CARE TEST O GILDA Performing Organization Address [facility] de Phone Number [facility] * Potassium (01/07/2012 11:42 AM EST) Potassium 3.6 3.5 - 5.0 mmol/L [facility] Comment: Please note: ??Patients with [...] CHEMISTRY ORDERABLES Performing Organization Address [facility] Phone Number [facility] * POCT GLUCOSE LAB USE ONLY (01/07/2012 11:41 AM EST) Glucose, POC 114 60 - 199 mg/dL [facility] Comment: Supplemental ranges: <110 mg/dL before meals <200 mg/dL all other times of the day Blood specimen (specimen) 01/07/2012 11:41 AM EST 01/07/2012 11:41 AM EST Andi Rene MD POINT OF CARE TEST Stephanie VO Performing Organization Address [facility] Phone Number [facility] * XR chest routine PA [...] LAB USE ONLY (01/07/2012 8:00 AM EST) [facility] Glucose, POC 116 60 - 199 mg/dL [facility] Comment: Supplemental ranges: <110 mg/dL before meals <200 mg/dL all other times of the day Blood specimen (specimen) 01/07/2012 8:00 AM EST 01/07/2012 8:00 AM EST Andi Rene MD POINT OF CARE TEST O RDERABLES Performing Organization Address [place]/[facility]/ZIP Co de Phone Number CERBRIAN MILLENNIUM * (ABNORMAL) DIFFERENTIAL, AUTOMATED (01/07/2012 [...] S Performing Organization Address [facility]/ZIP Co de Phone Number ARIAN NELSON * (ABNORMAL) Basic Metabolic Panel (non-fasting) (01/07/2012 4:11 AM EST) [facility] Glucose 127 60 - 199 mg/dL CERNER [...] MD HEMATOLOGY ORDERABLE S ARIAN CERDAIUM * Microalbumin, urine, random (01/06/2012 9:03 PM EST) Creatinine, Urine 136 mg/dL CE RNER ROBYPETR Albumin, Urine 14.4 mg/L JADEN R MILLENNIUM Albumin / Creatinin Ratio, Urine 11 mcg/mg Cr CERBRIAN MILLENNIUM Comment: Reference Range* Random collection (mcg/mg creatinine) Normal ?<30 Microalbuminuria ?? 30 - 300 Clinical Albuminuria ?? >300 *[place] [employer]. Diabetic Nephropathy. Diabetes Care 1997;(Suppl 1):S24-S27 Exercise within 24 hour, infection, fever, CHF, marked hyperglycemia, and marked hypertension may elevate urinary albumin excretion over baseline values. Urine specimen (specimen) 01/06/2012 9:03 PM EST 01/06/2012 10:28 PM EST Narrative Resulting Agency Comment Spec In Lab Inna Tovar MD URINE ORDERABLES Performing Organization Address [facility] Phone Number [facility] * POCT GLUCOSE LAB USE ONLY (01/06/2012 7:46 PM EST) Glucose, POC 127 60 - 199 mg/dL [facility] Comment: Supplemental ranges: <110 mg/dL before meals <200 mg/dL all other times of the day Blood specimen (specimen) 01/06/2012 7:46 PM EST 01/06/2012 7:46 PM EST Andi Rene MD POINT OF CARE TEST O GILDA Performing Organization Address [facility] Phone Number [facility] * POCT GLUCOSE LAB USE ONLY (01/06/2012 4:24 PM EST) Glucose, POC 131 60 - 199 mg/dL [facility] Comment: Supplemental ranges: <110 mg/dL before meals <200 mg/dL all other times of the day Blood specimen (specimen) 01/06/2012 4:24 PM EST 01/06/2012 4:24 PM EST Andi Rene MD POINT OF CARE TEST Stephanie VO Performing Organization Address [facility] Phone Number [facility] * POCT GLUCOSE LAB USE ONLY (01/06/2012 12:06 PM EST) Glucose, POC 160 60 - 199 mg/dL [facility] Comment: Supplemental ranges: <110 mg/dL before meals <200 mg/dL all other times of the day Blood specimen (specimen) 01/06/2012 12:06 PM EST 01/06/2012 12:06 PM EST Andi Rene MD POINT OF CARE TEST O RDTYESHA Performing Organization Address [facility] de Phone Number [facility] * Potassium (01/06/2012 9:59 AM EST) [facility] Potassium 4.0 3.5 - 5.0 mmol/L [facility] Comment: Please note: ??Patients with [...] ORDERABLES Performing Organization Address [facility] de Phone Number [facility] * POCT GLUCOSE LAB USE ONLY (01/06/2012 6:53 AM EST) Glucose, POC 168 60 - 199 mg/dL [facility] Comment: Supplemental ranges: <110 mg/dL before meals <200 mg/dL all other times of the day Blood specimen (specimen) 01/06/2012 6:53 AM EST 01/06/2012 6:53 AM EST Andi Rene MD POINT OF CARE TEST O GILDA Performing Organization Address [facility] de Phone Number [facility] * POCT GLUCOSE LAB USE ONLY (01/06/2012 5:03 AM EST) Glucose, POC 147 60 - 199 mg/dL [facility] Comment: Supplemental ranges: <110 mg/dL before meals <200 mg/dL all other times of the day Blood specimen (specimen) 01/06/2012 5:03 AM EST 01/06/2012 5:03 AM EST Andi Rene MD POINT OF CARE TEST O GILDA Performing Organization Address [facility] de Phone Number [facility] * POCT GLUCOSE LAB USE ONLY (01/06/2012 3:16 AM EST) Glucose, POC 126 60 - 199 mg/dL [facility] Comment: Supplemental ranges: <110 mg/dL before meals <200 mg/dL all other times of the day Blood specimen (specimen) 01/06/2012 3:16 AM EST 01/06/2012 3:16 AM EST Andi Rene MD POINT OF CARE TEST O GILDA Performing Organization Address [facility] de Phone Number [facility] * POCT GLUCOSE LAB USE ONLY (01/06/2012 1:12 AM EST) Glucose, POC 135 60 - 199 mg/dL [facility] Comment: Supplemental ranges: <110 mg/dL before meals <200 mg/dL all other times of the day Blood specimen (specimen) 01/06/2012 1:12 AM EST 01/06/2012 1:12 AM EST Andi Rene MD POINT OF CARE TEST O DIMITRIERAHERNANDEZ Performing Organization Address [facility] de Phone Number [facility] * POCT GLUCOSE LAB USE ONLY (01/05/2012 11:52 PM EST) Glucose, POC 133 60 - 199 mg/dL [facility] Comment: Supplemental ranges: <110 mg/dL before meals <200 mg/dL all other times of the day Blood specimen (specimen) 01/05/2012 11:52 PM EST 01/05/2012 11:52 PM EST Andi Rene MD POINT OF CARE TEST O RDERABLES Performing Organization Address [facility] Phone Number [facility] * POCT GLUCOSE LAB USE ONLY (01/05/2012 10:54 PM EST) Glucose, POC 130 60 - 199 mg/dL [facility] Comment: Supplemental ranges: <110 mg/dL before meals <200 mg/dL all other times of the day Blood specimen (specimen) 01/05/2012 10:54 PM EST 01/05/2012 10:54 PM EST Andi Rene MD POINT OF CARE TEST O RDERAHERNANDEZ Performing Organization Address [facility] Phone Number [facility] * POCT GLUCOSE LAB USE ONLY (01/05/2012 9:51 PM EST) Glucose, POC 132 60 - 199 mg/dL [facility] Comment: Supplemental ranges: <110 mg/dL before meals <200 mg/dL all other times of the day Blood specimen (specimen) 01/05/2012 9:51 PM EST 01/05/2012 9:51 PM EST Andi Rene MD POINT OF CARE TEST O GILDA Performing Organization Address [facility] Phone Number [facility] * POCT GLUCOSE LAB USE ONLY (01/05/2012 8:50 PM EST) Glucose, POC 126 60 - 199 mg/dL [facility] MILLENNIUM Comment: Supplemental ranges: <110 mg/dL before meals <200 mg/dL all other times of the day Blood specimen (specimen) 01/05/2012 8:50 PM EST 01/05/2012 8:50 PM EST Andi Rene MD POINT OF CARE TEST O RDERAHERNANDEZ Performing Organization Address [facility] de Phone Number [facility] * POCT GLUCOSE LAB USE ONLY (01/05/2012 8:07 PM EST) Glucose, POC 126 60 - 199 mg/dL [facility] Comment: Supplemental ranges: <110 mg/dL before meals <200 mg/dL all other times of the day Blood specimen (specimen) 01/05/2012 8:07 PM EST 01/05/2012 8:07 PM EST Anid Rene MD POINT OF CARE TEST O RDTYESHA Performing Organization Address [facility] de Phone Number [facility] * POCT GLUCOSE LAB USE ONLY (01/05/2012 6:57 PM EST) Glucose, POC 137 60 - 199 mg/dL [facility] Comment: Supplemental ranges: <110 mg/dL before meals <200 mg/dL all other times of the day Blood specimen (specimen) 01/05/2012 6:57 PM EST 01/05/2012 6:57 PM EST Andi Rene MD POINT OF CARE TEST O GILDA Performing Organization Address [facility] de Phone Number [facility] * POCT GLUCOSE LAB USE ONLY (01/05/2012 4:59 PM EST) Glucose, POC 147 60 - 199 mg/dL [facility] Comment: Supplemental ranges: <110 mg/dL before meals <200 mg/dL all other times of the day Blood specimen (specimen) 01/05/2012 4:59 PM EST 01/05/2012 4:59 PM EST Andi Rene MD POINT OF CARE TEST O GILDA Performing Organization Address [facility] de Phone Number [facility] * POCT GLUCOSE LAB USE ONLY (01/05/2012 1:05 PM EST) Glucose, POC 154 60 - 199 mg/dL CERNER MILLENNIUM Comment: Supplemental ranges: <110 mg/dL before meals <200 mg/dL all other times of the day Blood specimen (specimen) 01/05/2012 1:05 PM EST 01/05/2012 1:05 PM EST Andi Rene MD POINT OF CARE TEST O RDERAHERNANDEZ Performing Organization Address [facility] Co de Phone Number [facility] * POCT GLUCOSE LAB USE ONLY (01/05/2012 12:42 PM EST) Glucose, POC 148 60 - 199 mg/dL [facility] Comment: Supplemental ranges: <110 mg/dL before meals <200 mg/dL all other times of the day Blood specimen (specimen) 01/05/2012 12:42 PM EST 01/05/2012 12:42 PM EST Andi Rene MD POINT OF CARE TEST O DIMITRIERAHERNANDEZ Performing Organization Address [facility] Co de Phone Number [facility] * POCT GLUCOSE LAB USE ONLY (01/05/2012 9:54 AM EST) Glucose, POC 145 60 - 199 mg/dL [facility] Comment: Supplemental ranges: <110 mg/dL before meals <200 mg/dL all other times of the day Blood specimen (specimen) 01/05/2012 9:54 AM EST 01/05/2012 9:54 AM EST Andi Rene MD POINT OF CARE TEST O DIMITRIERAHERNANDEZ Performing Organization Address [facility] Co de Phone Number [facility] * POCT GLUCOSE LAB USE ONLY (01/05/2012 8:00 AM EST) Glucose, POC 168 60 - 199 mg/dL [facility] Comment: Supplemental ranges: <110 mg/dL before meals <200 mg/dL all other times of the day Blood specimen (specimen) 01/05/2012 8:00 AM EST 01/05/2012 8:00 AM EST Andi Rene MD POINT OF CARE TEST O RDERABLES Performing Organization Address [facility] de Phone Number [facility] * POCT GLUCOSE LAB USE ONLY (01/05/2012 5:58 AM EST) Glucose, POC 164 60 - 199 mg/dL [facility] HeyBubbleENNIUM Comment: Supplemental ranges: <110 mg/dL before meals <200 mg/dL all other times of the day Blood specimen (specimen) 01/05/2012 5:58 AM EST 01/05/2012 5:58 AM EST Andi Rene MD POINT OF CARE TEST O RDERABLES Performing Organization Address [facility] Phone Number [facility] * POCT GLUCOSE LAB USE ONLY (01/05/2012 4:12 AM EST) Glucose, POC 148 60 - 199 mg/dL [facility] Comment: Supplemental ranges: <110 mg/dL before meals <200 mg/dL all other times of the day Blood specimen (specimen) 01/05/2012 4:12 AM EST 01/05/2012 4:12 AM EST Andi Rene MD POINT OF CARE TEST O RDERABLES Performing Organization Address [facility] de Phone Number [facility] * POCT GLUCOSE LAB USE ONLY (01/05/2012 2:05 AM EST) Glucose, POC 148 60 - 199 mg/dL [facility] MILLENNIUM Comment: Supplemental ranges: <110 mg/dL before meals <200 mg/dL all other times of the day Blood specimen (specimen) 01/05/2012 2:05 AM EST 01/05/2012 2:05 AM EST Andi Rene MD POINT OF CARE TEST O RDERABLES Performing Organization Address [facility] Co de Phone Number [facility] * (ABNORMAL) DIFFERENTIAL, AUTOMATED (01/05/2012 2:00 AM [...] Sarthak Pollard MD HEMATOLOGY ORDERABLE S CERNER ROBYENNIUM * (ABNORMAL) Cardiac Enzymes (01/05/2012 2:00 AM EST) Troponin-T 0.39(H) <=0.03 ng/mL CERNER MILLENNIUM Comment: 0.03 ng/mL: Represents the 99th percentile upper reference limit for normals. >0.03 ng/mL: Elevated cardiac troponin T level indicative of myocardial damage. Diagnosis of acute, evolving or recent PA requires a typical rise and gradual fall [...] consensus document of the Joint Society of Cardiology/[place] College of Cardiology Committee for the redefinition of myocardial infarction. Journal of the [place] College [employer] Cardiology 2000; 36: 959-969] Creatine Kinase 436(H) 0 - 200 unit/L [facility] [employer] Blood specimen (specimen) 01/05/2012 2:00 AM EST 01/05/2012 2:11 AM EST Narrative Resulting Agency Comment Spec In Lab Sarthak Pollard MD CHEMISTRY ORDERABLES Performing Organization Address [facility] Co de Phone Number [facility] [employer] * Potassium (01/05/2012 2:00 AM EST) Pathologist [facility] Potassium 4.4 3.5 - 5.0 mmol/L [facility] TechnologiesEC[facility] Comment: Please note: ??Patients with WBC [...] ORDERABLES Performing Organization Address [facility] Co de Phone Number [facility] [employer] * (ABNORMAL) Glucose, fasting (01/05/2012 2:00 AM EST) Glucose Fasting 148(H) 65 - 99 mg/dL [facility] Comment: ?Fasting* Glucose Interpretive Criteria [...] of Diabetes Mellitus, Position Statement from the [place] Diabetes Association. ??Diabetes Care, Volume 33, Supplement 1, Nov 2009 Blood specimen (specimen) 01/05/2012 2:00 AM EST 01/05/2012 2:11 AM EST Narrative Resulting Agency Comment Spec In Lab Sarthak Pollard MD CHEMISTRY ORDERABLES [facility] * Creatinine, serum (01/05/2012 2:00 AM EST) Creatinine 0.86 0.80 - 1.50 mg/dL [facility] Est Glomerular Filtration Rate >60 >=60 [facility] Comment: The National Kidney Disease [...] Lab Sarthak Pollard MD CHEMISTRY ORDERABLES ARIAN CAENNIUM * BUN (01/05/2012 2:00 AM [...] Platelet 294 145 - 370 x10(3)/mc L [facility] RDW Standard Deviation 42.2 35.0 - 46.0 fL [facility] RDW coefficient of variation 13.0 10.9 - 14.4 % [facility] Mean Platelet Volume 9.7 9.0 - 12.0 fL [facility] Blood specimen (specimen) 01/05/2012 2:00 AM EST 01/05/2012 2:11 AM EST Narrative Resulting Agency Comment Spec In Lab Sarthak Pollard MD HEMATOLOGY ORDERABLE S Performing Organization Address [facility] Co de Phone Number [facility] * POCT GLUCOSE LAB USE ONLY (01/04/2012 11:58 PM EST) Glucose, POC 136 60 - 199 mg/dL [facility] Comment: Supplemental ranges: <110 mg/dL before meals <200 mg/dL all other times of the day Blood specimen (specimen) 01/04/2012 11:58 PM EST 01/04/2012 11:58 PM EST Andi Rene MD POINT OF CARE TEST O GILDA Performing Organization Address [facility] Co de Phone Number [facility] * POCT GLUCOSE LAB USE ONLY (01/04/2012 9:00 PM EST) Glucose, POC 143 60 - 199 mg/dL [facility] Comment: Supplemental ranges: <110 mg/dL before meals <200 mg/dL all other times of the day Blood specimen (specimen) 01/04/2012 9:00 PM EST 01/04/2012 9:00 PM EST Andi Rene MD POINT OF CARE TEST O GILDA Performing Organization Address [facility] Co de Phone Number [facility] * GLUCOSE, RANDOM (01/04/2012 9:00 PM EST) Glucose 128 60 - 199 mg/dL [facility] Comment:Diabetes: >=200 mg/d L plus symptoms Blood specimen (specimen) 01/04/2012 9:00 PM EST 01/04/2012 9:08 PM EST Narrative Resulting Agency Comment Spec In Lab Sarthak Pollard MD CHEMISTRY ORDERABLES Performing Organization Address [facility] de Phone Number CERBRIAN CAENNIUM * (ABNORMAL) Hemoglobin (01/04/2012 9:00 PM EST) Hemoglobin 13.6(L) 13.7 - 17.5 gm/dL CERNER MILLENNIUM Blood specimen (specimen) 01/04/2012 9:00 PM EST 01/04/2012 9:08 PM EST Narrative Resulting Agency Comment Spec In Lab Sarthak Pollard MD HEMATOLOGY ORDERABLE S Performing Organization Address [facility] Phone Number CERBRIAN CAENNIUM * Potassium (01/04/2012 9:00 PM EST) [...] ORDERABLES Performing Organization Address [facility] Phone Number CERBRIAN MILLENNIUM * (ABNORMAL) BLOOD GAS 2 ARTERIAL (01/04/2012 6:47 PM EST) pH, Arterial 7.33(L) CERNER MILLENNIUM PCO2, Arterial 47(H) mmHg CERNE R MILLENNIUM PO2, Arterial 109(H) mmHg CERNER MILLENNIUM Bicarbonate, Arterial 24.1 mmol/L CERNER MILLENNIUM Base Excess, Arterial -1.9 mmol/L CERNER MILLENNIUM Hgb Blood Gas 14.1 gm/dL CERN[facility] MILLENNIUM Comment: Total Hemoglobin (in gm/dL) ?[place] on [facility] [place]emat[facility] ranges: ?Age ?Reference Range Less than [...] Comment: Total Hemoglobin (in gm/dL) ?Based on [facility] Hematology ranges: ?Age ?Reference Range Less than [...] IMPRESSION: Expected early postoperative findings. Ricky [facility] DX ORDERABLES * (ABNORMAL) BLOOD GAS 2 ARTERIAL (01/04/2012 4:30 PM EST) pH, Arterial 7.35(L) CERNER MILLENNIUM PCO2, Arterial 46(H) mmHg CERNE R MILLENNIUM PO2, Arterial 223(H) mmHg CERNER MILLENNIUM Bicarbonate, Arterial 25.1 mmol/L CERNER MILLENNIUM Base Excess, Arterial -0.4 mmol/L CERNER MILLENNIUM Hgb Blood Gas Not Perf 13.7 - 17.5 gm/dL CERNER MILLENNIUM Comment: Total Hemoglobin (in gm/dL) ?Based on [facility] Hematology ranges: ?Age ?Reference Range Less than [...] (Bezet) 455 ms MUSE SYSTEM Calculated P [place] 48 degrees MUSE SYSTEM Calculated R [place] 23 degrees MUSE SYSTEM Calculated T [place] 71 degrees MUSE SYSTEM INTERPRETATION Normal sinus rhythm Normal ECG When compared with ECG of 30-DEC-2011 17:24, Vent. rate has decreased BY ??35 BPM Minimal criteria for Inferior infarct are no longer Present Nonspecific T wave abnormality, improved in Anterolateral leads Confirmed by fellow MD Steve, Luca ([id number]) on 01/05/2012 10:22:57 AM Confirmed by MD [...] mmHg CERNER MILLENNIUM Comment: Noted by instrument setter. MTF PO2, Arterial 145(H) mmHg CERNER MILLENNIUM Bicarbonate, Arterial 25.5 mmol/L CERNER MILLENNIUM Base Excess, Arterial -0.7 mmol/L CERNER MILLENNIUM Hgb Blood Gas 11.1(L) gm/dL CERNER MILLENNIUM Comment: Total Hemoglobin (in gm/dL) ?Based [place] [facility] Hematology ranges: ?Age ?Reference Range Less than [...] CARE TEST O RDERABLES CERNER MILLENNIUM * THROMBIN TIME (01/04/2012 3:28 PM EST) Thrombin Time 17 15 - 20 sec CERNER MILLENNIUM Blood specimen (specimen) 01/04/2012 3:28 PM EST 01/04/2012 3:28 PM EST Narrative Resulting Agency Comment Spec In Lab Sarthak Pollard MD HEMATOLOGY ORDERABLE S Performing Organization Address [facility] Co de Phone Number ARIAN CAENNIUM * FIBRINOGEN (01/04/2012 3:28 PM EST) Fibrinogen 364 200 - 470 mg/dL [facility] MILLENNIUM Comment:Called by: LEILANI, Read back by: AKANKSHA SAMPSON, Date/Time:01/04/12 15:45. Blood specimen (specimen) 01/04/2012 3:28 PM EST 01/04/2012 3:28 PM EST Narrative Resulting Agency Comment Spec In Lab Sarthak Pollard MD HEMATOLOGY ORDERABLE S Performing Organization Address [facility] de Phone Number [facility] * APTT (01/04/2012 3:28 PM EST) Partial Thromboplastin Time 30 25 - 35 sec CERNER MILLENNIUM Comment: Recommended therapeutic PTT range for full dose unfractionated heparin is 80-114 seconds. Blood specimen (specimen) 01/04/2012 3:28 PM EST 01/04/2012 3:28 PM EST Narrative Resulting Agency Comment Spec In Lab Sarthak Pollard MD HEMATOLOGY ORDERABLE S Performing Organization Address [facility] de Phone Number ARIAN CERDAIUM * (ABNORMAL) PROTHROMBIN TIME (01/04/2012 3:28 PM EST) Prothrombin Time 17.8(H) 11.9 - 14.7 sec CERNER MILLENNIUM Comment: [facility] Transfusion Committee Guidelines: INR less than [...] mmHg CERNER MILLENNIUM Comment: Noted by instrument setter. MTF PO2, Arterial 296(H) mmHg CERNER MILLENNIUM Bicarbonate, Arterial 26.3(H) mmol/L CERNER MILLENNIUM Base Excess, Arterial 0.1 mmol/L CERNER MILLENNIUM Hgb Blood Gas 10.2(L) gm/dL CERNER MILLENNIUM Comment: Total Hemoglobin (in gm/dL) ?[place] [facility] Hematology ranges: ?Age ?Reference Range Less than [...] RDERABLES Performing Organization Address [facility] Phone Number [facility] * FIBRINOGEN (01/04/2012 2:25 PM EST) Fibrinogen 356 200 - 470 mg/dL CERNER MILLENNIUM Comment:Called by: [facility], Read back by: AKANKSHA SAMPSON, Date/Time:01/04/12 14:49. Blood specimen (specimen) 01/04/2012 2:25 PM EST 01/04/2012 2:32 PM EST Narrative Resulting Agency Comment Spec In Lab Sarthak Pollard MD HEMATOLOGY ORDERABLE S Performing Organization Address [facility] Phone Number [facility] * PLATELET COUNT (01/04/2012 2:25 PM EST) Platelet 281 145 - 370 x10(3)/mcL CERNER MILLENNIUM Blood specimen (specimen) 01/04/2012 2:25 PM EST 01/04/2012 2:32 PM EST Narrative Resulting Agency Comment Spec In Lab Sarthak Pollard MD HEMATOLOGY ORDERABLE S Performing Organization Address [facility] Phone Number [facility] * (ABNORMAL) BLOOD GAS 2 ARTERIAL (01/04/2012 12:59 PM EST) pH, Arterial 7.36 CERNER MILLENNIUM PCO2, Arterial 48(H) mmHg CERNE R MILLENNIUM PO2, Arterial 197(H) mmHg CERNER MILLENNIUM Bicarbonate, Arterial 26.7(H) mmol/L CERNER MILLENNIUM Base Excess, Arterial 1.3 mmol/L CERNER MILLENNIUM Hgb Blood Gas 13.9 gm/dL CERNER MILLENNIUM Comment: Total Hemoglobin (in gm/dL) ?[place] [facility] Hematology ranges: ?Age ?Reference Range Less than [...] Organization Address City/[facility] Co de Phone Number ARIAN CERDAIUM * Prepare Coag Factors (Non-Hemophilia) (01/04/2012 12:05 PM EST) Dispensed? Yes ARIAN CERDAIUM Blood specimen (specimen) 01/04/2012 12:05 PM EST 01/04/2012 12:01 PM EST Narrative Resulting Agency Comment Spec In Lab Inna Tovar MD BLOOD BANK PRODUCT O RDERABLES Performing Organization Address [facility] Co de Phone Number ARIAN [...] 0.0 - 0.2 x10(3)/mc L CERNER MILLENNIUM [place] Absolute Manual 0.3(H) 0.0 - 0.0 x10(3)/mc [...] of Diabetes Mellitus, Position Statement from the [place] [employer]. ??Diabetes Care, Volume 33, Supplement [...] S Performing Organization Address [facility] de Phone Number CERNER MILLENNIUM [...] MD HEMATOLOGY ORDERABLE S Performing Organization Address [facility] Phone Number CERNER MILLENNIUM * (ABNORMAL) APTT (01/03/2012 7:38 PM EST) Partial Thromboplastin Time 98(H) 25 - 35 sec CERNER MILLENNIUM Comment: Recommended therapeutic PTT range for full dose unfractionated heparin is 80-114 seconds. Blood specimen (specimen) 01/03/2012 7:38 PM EST 01/03/2012 7:53 PM EST Narrative Resulting Agency Comment Spec In Lab Sarthak Pollard MD HEMATOLOGY ORDERABLE S Performing Organization Address [facility] Phone Number CERNER MILLENNIUM * (ABNORMAL) APTT [...] S Performing Organization Address [facility] de Phone Number CERNER MILLENNIUM [...] Remigio Ceron MD HEMATOLOGY ORDERABLE S CERNER ROYBENNIUM * ANTIBODY SCREEN (01/03/2012 6:15 AM EST) Ab Screen Interp Negative CERNER MILLENNIUM Expires at [phone] on: [id number] CERNER MILLENNIUM Blood specimen (specimen) 01/03/2012 6:15 AM EST 01/03/2012 6:35 AM EST Narrative Resulting Agency Comment Spec In Lab Sarthak Pollard MD BLOOD BANK LAB ORDER RANDELL Performing Organization Address City/[facility]/ZIP Co de Phone Number [facility] * ABO/RH TYPING (01/03/2012 6:15 AM EST) ABORH Type A Pos [facility] Blood specimen (specimen) 01/03/2012 6:15 AM EST 01/03/2012 6:35 AM EST Narrative Resulting Agency Comment Spec In Lab Sarthak Pollard MD BLOOD BANK LAB ORDER RANDELL Performing Organization Address [facility] Co de Phone Number [facility] * (ABNORMAL) APTT (01/03/2012 6:15 AM EST) Partial Thromboplastin Time 96(H) 25 - 35 sec [facility] Comment: Recommended therapeutic PTT range for full dose unfractionated heparin is 80-114 seconds. Blood specimen (specimen) 01/03/2012 6:15 AM EST 01/03/2012 6:23 AM EST Narrative Resulting Agency Comment Spec In Lab Sarthak Pollard MD HEMATOLOGY ORDERABLE S Performing Organization Address [facility] de Phone Number [facility] * (ABNORMAL) BMP w/fasting Glucose (01/03/2012 6:15 AM EST) Glucose Fasting 116(H) 65 - 99 mg/dL [facility] Comment: ?Fasting* Glucose Interpretive Criteria [...] of Diabetes Mellitus, Position Statement from the [place] [employer]. ??Diabetes Care, Volume 33, Supplement [...] S Performing Organization Address [facility] de Phone Number CERBRIAN MILLENNIUM * (ABNORMAL) APTT (01/02/2012 5:32 PM EST) Partial Thromboplastin Time 53(H) 25 - 35 sec CERNER MILLENNIUM Comment: Recommended therapeutic PTT range for full dose unfractionated heparin is 80-114 seconds. Blood specimen (specimen) 01/02/2012 5:32 PM EST 01/02/2012 5:38 PM EST Narrative Resulting Agency Comment Spec In Lab Sarthak Pollard MD HEMATOLOGY ORDERABLE S Performing Organization Address [facility] Phone Number CERBRIAN MILLENNIUM * (ABNORMAL) APTT (01/02/2012 11:56 AM EST) Partial Thromboplastin Time 46(H) 25 - 35 sec CERNER MILLENNIUM Comment: Recommended therapeutic PTT range for full dose unfractionated heparin is 80-114 seconds. Blood specimen (specimen) 01/02/2012 11:56 AM EST 01/02/2012 12:05 PM EST Narrative Resulting Agency Comment Spec In Lab Sarthak Pollard MD HEMATOLOGY ORDERABLE S Performing Organization Address [facility] Phone Number CERBRIAN MILLENNIUM * (ABNORMAL) DIFFERENTIAL, AUTOMATED (01/02/2012 6:02 [...] Organization Address City/[facility]/ZIP Co de Phone Number ARIAN CAENNIUM * (ABNORMAL) APTT (01/02/2012 6:02 AM EST) [facility] Partial Thromboplastin Time 42(H) 25 - 35 sec CERNER MILLENNIUM Comment: Recommended therapeutic PTT range for full dose unfractionated heparin is 80-114 seconds. Blood specimen (specimen) 01/02/2012 6:02 AM EST 01/02/2012 6:29 AM EST Narrative Resulting Agency Comment Spec In Lab Sarthak Pollard MD HEMATOLOGY ORDERABLE S [facility] ROBYENNIUM * (ABNORMAL) BMP w/fasting Glucose (01/02/2012 6:02 AM EST) [facility] Glucose Fasting 113(H) 65 - 99 mg/dL [...] of Diabetes Mellitus, Position Statement from the [place] [employer]. ??Diabetes Care, Volume 33, Supplement [...] Organization Address City/[facility]/ZIP Co de Phone Number CERBRIAN CAENNIUM * (ABNORMAL) APTT (01/02/2012 12:23 AM EST) Partial Thromboplastin Time 36(H) 25 - 35 sec CERNER MILLENNIUM Comment: Recommended therapeutic PTT range for full dose unfractionated heparin is 80-114 seconds. Blood specimen (specimen) 01/02/2012 12:23 AM EST 01/02/2012 12:28 AM EST Narrative Resulting Agency Comment Spec In Lab Sarthak Pollard MD HEMATOLOGY ORDERABLE S Performing Organization Address [facility] Co de Phone Number CERBRIAN [...] S Performing Organization Address [facility] Phone Number [facility] PRASHANTIUM * APTT (01/01/2012 6:37 PM EST) Partial Thromboplastin Time 32 25 - 35 sec [facility] HeyBubbleENNIUM Comment: Recommended therapeutic PTT range for full dose unfractionated heparin is 80-114 seconds. Blood specimen (specimen) 01/01/2012 6:37 PM EST 01/01/2012 6:43 PM EST Narrative Resulting Agency Comment Spec In Lab Sarthak Pollard MD HEMATOLOGY ORDERABLE S Performing Organization Address [facility] Phone Number [facility] AOpt[employer] TechnologiesIUM * POCT GLUCOSE LAB USE ONLY (01/01/2012 12:02 PM EST) Glucose, POC 99 60 - 199 mg/dL [facility] HeyBubbleBANNER G[facility] Comment: Supplemental ranges: <110 mg/dL before meals <200 mg/dL all other times of the day Blood specimen (specimen) 01/01/2012 12:02 PM EST 01/01/2012 12:02 PM EST Andi Rene MD POINT OF CARE TEST O RDERABLES Performing Organization Address [facility] Phone Number ARIAN HeyBubbleYARYIUM * (ABNORMAL) APTT (01/01/2012 11:59 AM EST) Partial Thromboplastin Time 108(H) 25 - 35 sec [facility] MILLENNIUM Comment: Recommended therapeutic PTT range for full dose unfractionated heparin is 80-114 seconds. Blood specimen (specimen) 01/01/2012 11:59 AM EST 01/01/2012 12:06 PM EST Narrative Resulting Agency Comment Spec In Lab Andi Rene MD HEMATOLOGY ORDERABLE S Performing Organization Address [facility] Phone Number ARIAN CERDAIUM * XR chest routine PA [...] upper limits of normal. Procedure Note Erick Boob MD - 01/01/2012 PA AND LATERAL CHEST, [...] Absolute 0.07(H) 0.00 - 0.05 x10(3)/mc L [facility] Blood specimen (specimen) 01/01/2012 5:19 AM EST 01/01/2012 5:36 AM EST Remigio Ceron MD HEMATOLOGY ORDERABLE S Performing Organization Address [facility] Co de Phone Number [facility] * (ABNORMAL) APTT (01/01/2012 5:19 AM EST) Partial Thromboplastin Time 105(H) 25 - 35 sec [facility] Comment: Recommended therapeutic PTT range for full dose unfractionated heparin is 80-114 seconds. Blood specimen (specimen) 01/01/2012 5:19 AM EST 01/01/2012 5:36 AM EST Narrative Resulting Agency Comment Spec In Lab Remigio Ceron MD HEMATOLOGY ORDERABLE S Performing Organization Address [facility] Phone Number [facility] * (ABNORMAL) BMP w/fasting Glucose (01/01/2012 5:19 AM EST) Glucose Fasting 121(H) 65 - 99 mg/dL [facility] Comment: ?Fasting* Glucose Interpretive Criteria [...] of Diabetes Mellitus, Position Statement from the [place] [employer]. ??Diabetes Care, Volume 33, Supplement [...] Andi Rene MD HEMATOLOGY ORDERABLE S [facility] * Upper Respiratory Culture Throat (12/31/2011 9:55 PM EST) Upper Respiratory Culture ? Patient Name: ZACK REYNA., GEOVANNA Llanos ? Ordered By: ANDI REEN ? MR#: [id number] ?LOC: [facility] ? /Sex: ??1975 (36 years), ? Male ? PROCEDURE: Upper Respiratory Culture ?SOURCE: Throat ? COLLECTED: 12/31/2011 21:55 ? STARTED: 12/31/2011 22:16 ? FINAL REPORT ? Final Report ? Verified:2011 08:12 ? Beta Hemolytic Streptococci, Group A isolated ? PRELIMINARY REPORT ? Preliminary Report ? Verified:2011 09:46 ? Beta Hemolytic Streptococci, Group A isolated ? [facility] Specimen from throat (specimen) 12/31/2011 9:55 PM EST 12/31/2011 10:16 PM EST Narrative Resulting Agency Comment Spec In Lab Andi Rene MD MICROBIOLOGY - GENER AL ORDERABLES [facility] * (ABNORMAL) APTT (12/31/2011 4:34 PM EST) Partial Thromboplastin Time 66(H) 25 - 35 sec [facility] Comment: Recommended therapeutic PTT range for full dose unfractionated heparin is 80-114 seconds. Blood specimen (specimen) 12/31/2011 4:34 PM EST 12/31/2011 4:39 PM EST Narrative Resulting Agency Comment Spec In Lab Andi Rene MD HEMATOLOGY ORDERABLE S Performing Organization Address City/[facility] Co de Phone Number [facility] * Duplex Study for DVT, Bilat legs (12/31/2011 11:07 AM EST) VB Text Report Department: Vascular Surgery Lab Patient: [id number] (GEOVANNA DIXON) CPT Code: 17020 ICD-9: 780.6 Referring Physician: ANDI RENE Indication: [...] 10:39 AM EST) Smear Review Report ? [facility] ? Provider: ?? ANDI RENE ?Pt. Name: ?? ZACK REYNA, GEOVANNA Llanos ? Acc #: ?[id number] ? Pt. ? Col Date: ?? 12/31/2011 [...] MD HEMATOLOGY ORDERABLE S Performing Organization Address City/State/[facility] Co de Phone Number CERNER [...] S Performing Organization Address [facility] Co de Phone Number [facility] * Lactate Dehydrogenase (12/31/2011 9:44 AM EST) Lactate Dehydrogenase 123 110 - 220 unit/L [facility] Blood specimen (specimen) 12/31/2011 9:44 AM EST 12/31/2011 10:12 AM EST Narrative Resulting Agency Comment Spec In Lab Andi Rene MD CHEMISTRY ORDERABLES Performing Organization Address [facility] Co ar Phone Number [facility] * Peripheral Smear Review (12/31/2011 9:44 AM EST) Peripheral Smear Review See Comment [facility] Comment: When completed by the Pathologist, report [id number] will display under Hematology Reports. Blood specimen (specimen) 12/31/2011 9:44 AM EST 12/31/2011 10:12 AM EST Narrative Resulting Agency Comment Spec In Lab Andi Rene MD HEMATOLOGY ORDERABLE S Performing Organization Address [facility] Phone Number [facility] * (ABNORMAL) APTT (12/31/2011 9:44 AM EST) Partial Thromboplastin Time 50(H) 25 - 35 sec [facility] Comment: Recommended therapeutic PTT range for full dose unfractionated heparin is 80-114 seconds. Blood specimen (specimen) 12/31/2011 9:44 AM EST 12/31/2011 10:12 AM EST Narrative Resulting Agency Comment Spec In Lab Andi Rene MD HEMATOLOGY ORDERABLE S Performing Organization Address [facility] Co de Phone Number [facility] * (ABNORMAL) DIFFERENTIAL, AUTOMATED (12/31/2011 3:38 AM [...] Thromboplastin Time 47(H) 25 - 35 sec ARIAN CAENNIUM Comment: [...] of Diabetes Mellitus, Position Statement from the [place] [employer]. ??Diabetes Care, Volume 33, Supplement [...] In Lab Andi Rene MD CHEMISTRY ORDERABLES [facility] * (ABNORMAL) CBC (with Diff) (12/31/2011 3:38 [...] S Performing Organization Address [facility]/ZIP Co de Phone Number ARIAN NELSON * [...] Organization Address City/[facility]/ZIP Co de Phone Number ARIAN CERDAIUM * EKG 12 Lead (12/30/2011 5:24 PM EST) Ventricular rate 107 BPM MUSE SYSTEM Atrial Rate 107 BPM MUSE SYSTEM P-R Interval 160 ms MUSE SYSTEM QRS Duration 104 ms MUSE SYSTEM Q-T Interval 310 ms MUSE SYSTEM QTC Calculated (Bezet) 413 ms MUSE SYSTEM Calculated P [place] 24 degrees MUSE SYSTEM Calculated R [place] 25 degrees MUSE SYSTEM Calculated T [place] 54 degrees MUSE SYSTEM INTERPRETATION Sinus tachycardia [...] JR ?Ordered By: ANDI RENE ? MR#: [id number] ?LOC: [facility] ? /Sex: ??1975 (36 years), [...] ? ARIAN CAENNIUM Blood specimen (specimen) 12/30/2011 5:04 PM EST 12/30/2011 5:31 PM EST Narrative Resulting Agency Comment Spec In Lab Andi Rene MD MICROBIOLOGY - BLOOD ORDERABLES ARIAN NELSON * Blood culture (12/30/2011 4:51 PM EST) Blood Culture ? Patient Name: GEOVANNA DIXON JR ?Ordered By: ANDI RENE ? MR#: [id number] ?LOC: [facility] ? /Sex: ??1975 (36 years), [...] MD HEMATOLOGY ORDERABLE S ARIAN CAENNIUM * ANTIBODY SCREEN (12/30/2011 4:25 PM EST) Pathologist [facility] Ab Screen Interp Negative CERNER MILLENNIUM Expires at [phone] on: [id number] CERNER MILLENNIUM Blood specimen (specimen) 12/30/2011 4:25 PM EST 12/30/2011 4:36 PM EST Narrative Resulting Agency Comment Spec In Lab Andi Rene MD BLOOD BANK LAB ORDER RANDELL Performing Organization Address [facility] Co de Phone Number CERBRIAN CAENNIUM * ABO/RH TYPING (12/30/2011 4:25 PM EST) ABORH Type A Pos CERNER MILLENNIUM Blood specimen (specimen) 12/30/2011 4:25 PM EST 12/30/2011 4:36 PM EST Narrative Resulting Agency Comment Spec In Lab Andi Rene MD BLOOD BANK LAB ORDER RANDELL Performing Organization Address [facility] de Phone Number CERBRIAN CAENNIUM * Glucose, random (12/30/2011 4:25 PM EST) Glucose 126 60 - 199 mg/dL [facility] MILLENNIUM Comment:Diabetes: >=200 mg/d L plus symptoms Blood specimen (specimen) 12/30/2011 4:25 PM EST 12/30/2011 4:43 PM EST Narrative Resulting Agency Comment Spec In Lab Andi Rene MD CHEMISTRY ORDERABLES Performing Organization Address [facility] de Phone Number CERBRIAN CAENNIUM * (ABNORMAL) CBC (with Diff) (12/30/2011 4:25 PM EST) White Blood Cell 18.8(H) 4.0 - 10.0 x10(3)/mc L CERNER MILLENNIUM Red Blood Cell 4.47(L) 4.63 - 6.08 x10(6)/mc L CERNER MILLENNIUM Hemoglobin 13.7 13.7 - 17.5 gm/dL [facility] MILLEN[facility]UM Hematocrit 39.7(L) 40.0 - [...] 10.5 9.0 - 12.0 fL [facility] MILLENNIUM Blood specimen (specimen) 12/30/2011 4:25 PM EST 12/30/2011 4:43 PM EST Narrative Resulting Agency Comment Spec In Lab Andi Rene MD HEMATOLOGY ORDERABLE S Performing Organization Address [facility] de Phone Number [facility] * APTT (12/30/2011 2:08 PM EST) Partial Thromboplastin Time 31 25 - 35 sec [facility] Comment: Recommended therapeutic PTT range for full dose unfractionated heparin is 80-114 seconds. Blood specimen (specimen) 12/30/2011 2:08 PM EST 12/30/2011 2:27 PM EST Narrative Resulting Agency Comment Spec In Lab Andi Rene MD HEMATOLOGY ORDERABLE S Performing Organization Address [facility] Co de Phone Number [facility] * Cardiac Enzymes (12/30/2011 2:08 PM EST) Troponin-T 0.03 <=0.03 ng/mL [facility] Comment: 0.03 ng/mL: Represents the 99th percentile upper reference limit for normals. >0.03 ng/mL: Elevated cardiac troponin T level indicative of myocardial damage. Diagnosis of acute, evolving or recent PA requires a typical rise and gradual fall [...] consensus document of the Joint Society of Cardiology/[place] [employer]iology Committee for the redefinition of myocardial infarction. Journal of the [place] [employer]iology 2000; 36: 959-969] Creatine Kinase 72 0 - 200 unit/L ARIAN NELSON Blood specimen (specimen) 12/30/2011 2:08 PM EST 12/30/2011 2:27 PM EST Narrative Resulting Agency Comment Spec In Lab Remigio Ceron MD CHEMISTRY ORDERABLES Performing Organization Address [facility] Co de Phone Number [facility] * HIV (12/30/2011 10:18 AM EST) HIV 1/2 Ab Negative [facility] Blood specimen (specimen) 12/30/2011 10:18 AM EST 12/30/2011 10:28 AM EST Narrative Resulting Agency Comment Spec In Lab Andi Rene MD CHEMISTRY ORDERABLES Performing Organization Address [facility] de Phone Number [facility] * Echo Transthoracic (Complete) (12/30/2011 9:47 AM EST) EF 55 [facility]ART[facility] SYSTEM Anatomical Region Laterality Modality Other 12/30/2011 Narrative 12/30/2011 10:02 AM EST Procedure: ? Transthoracic Echocardiogram Patient: ? ZACK AUSTIN P ?(Age): 1975(36) Med Rec#: ?[id number] ? Sex: ?M ? [place] Loc[facility] [place] ? Ht / Wt: ??180(cm)/124(kg) Pt. Loc: ? Adult Floor ?BSA: ?2.41 Study Date: ?12/30/2011 ? Pt. Type: Inpatient Tape: ? Referring: Remigio Ceron Counselor Manager: Benjamin Lundberg Diagnosis: ??Chest pain (786.50) CPT Code(s): ??Spectral Doppler (17691), ??Color Doppler (40974), ??Echo Full (90225), Indication(s): ??Chest Pain Rhythm: HR ?BP ?106/60 [...] 12/30/2011 10:01:28 Images reviewed and interpretation verified [facility] Cardiac Ultrasound Laboratory Procedure Note Zak Coley MD - 12/30/2011 Procedure: Transthoracic Echocardiogram Patient: ZACK MILLIGAN(Age): 1975(36) Med Rec#: [id number] Sex: M [place] Loc: [facility] Ht / Wt: 180(cm)/124(kg) Pt. Loc: Adult Floor BSA: 2.41 Study Date: 12/30/2011 Pt. Type: Inpatient Tape: Referring: Remigio Ceron Counselor Manager: Benjamin Lundberg Diagnosis: Chest pain (786.50) CPT Code(s): Spectral Doppler (85797), Color Doppler (53652), Echo Full (63216), Indication(s): Chest Pain Rhythm: HR BP 106/60 [...] 12/30/2011 10:01:28 Images reviewed and interpretation verified [facility] Cardiac Ultrasound Laboratory Remigio Ceron MD [...] Urine Dipstick Clear Clear CERNER MILLENNIUM Specific Hope Urine Automated 1.019 1.002 - 1.030 CERNER [...] In Lab Andi Rene MD URINE ORDERABLES [facility] * Rapid Qual Drug Screen, Urine ([facility]) (12/30/2011 9:32 AM EST) Pathologist [facility] U IVAN Screen See Note CERNER MILLENNIUM [...] testing device is being used in the [facility] Chemistry Laboratory. Please contact the chemistry laboratory at [phone] with questions. Urine specimen (specimen) 12/30/2011 9:32 AM EST 12/30/2011 9:45 AM EST Narrative Resulting Agency Comment Spec In Lab Andi Rene MD URINE ORDERABLES Performing Organization Address City/State/[facility] Co ar Phone Number [facility] * Urine culture Clean Catch Urine (12/30/2011 9:31 AM EST) Urine Culture ? Patient Name: GEOVANNA DIXON JR ?Ordered By: ANDI RENE ? MR#: [id number] ?LOC: [facility] ? /Sex: ?? 4 (36 [...] S Performing Organization Address [facility] Co de Phone Number ARIAN NELSON * Hemoglobin A1c (12/30/2011 7:07 AM EST) Hemoglobin A1c 6.1 4.3 - 6.1 % [facility] Estimated Average Glucose 128 mg/dL [facility] Comment: eAG equivalents for HbA1c [...] into estimated average glucose values. ??Diabetes Care 2008:31(8):2648-4950. Blood specimen (specimen) 12/30/2011 7:07 AM EST 12/30/2011 7:18 AM EST Narrative Resulting Agency Comment Spec In Lab Remigio Ceron MD CHEMISTRY ORDERABLES Performing Organization Address [facility] Co de Phone Number ARIAN NELSON * (ABNORMAL) APTT (12/30/2011 5:45 AM EST) Partial Thromboplastin Time 45(H) 25 - 35 sec [facility] Comment: Recommended therapeutic PTT range for full dose unfractionated heparin is 80-114 seconds. Blood specimen (specimen) 12/30/2011 5:45 AM EST 12/30/2011 6:10 AM EST Narrative Resulting Agency Comment Spec In Lab Andi Rene MD HEMATOLOGY ORDERABLE S Performing Organization Address [facility] Co de Phone Number [facility] * (ABNORMAL) Glucose, fasting (12/30/2011 5:45 AM EST) Glucose Fasting 108(H) 65 - 99 mg/dL [facility] Comment: ?Fasting* Glucose Interpretive Criteria [...] of Diabetes Mellitus, Position Statement from the [place] Diabetes Association. ??Diabetes Care, Volume 33, Supplement 1, Nov 2009 Blood specimen (specimen) 12/30/2011 5:45 AM EST 12/30/2011 6:10 AM EST Narrative Resulting Agency Comment Spec In Lab Remigio Ceron MD CHEMISTRY ORDERABLES Performing Organization Address [facility]/State/ZIP Co de Phone Number [facility] * (ABNORMAL) Triglyceride (12/30/2011 5:45 AM EST) Triglyceride 245(H) <=149 mg/dL [facility] Comment: Reference Range: Normal triglycerides: ??<150 mg/dL Borderline high: ??150-199 mg/dL High: ??200-499 mg/dL Very high: ??>nz=358 mg/dL ELISEO 2001; 285(19):2012-2507 Blood specimen (specimen) 12/30/2011 5:45 AM EST 12/30/2011 6:10 AM EST Narrative Resulting Agency Comment Spec In Lab Remigio Ceron MD CHEMISTRY ORDERABLES Performing Organization Address [facility] Co de Phone Number [facility] * (ABNORMAL) HDL/Cholesterol Profile (12/30/2011 5:45 AM EST) Cholesterol, Total 170 <=199 mg/dL [facility] Comment: Recommendations of the NCEP Adult Treatment Panel for the following risk cutoff thresholds for the [place] population: Desirable: <200 mg/dL Borderline High: 200-239 mg/dL High: > or = 240 mg/dL HDL Cholesterol 36(L) >=40 mg/dL [facility] Comment: Reference range: ??Low HDL: ?? < 40 mg/dL ??Normal: ?40-60 mg/dL ??Desirable: > 60 mg/dL ELISEO 2001; 285(19):6778-4067 Cholesterol/HDL Ratio 4.7 ratio [facility] Comment: A Cholesterol to HDL ratio below 4:1 is desirable. ??Studies suggest that increased CAD risk occurs at ratios above 5 for females and above 6 for men. ? [place] Heart Association ??(http://www.americanheart.org) ? Jazmine Int Med, 1994; 121:641 ? AM J Med, 1998; 105(1A):48S Blood specimen (specimen) 12/30/2011 5:45 AM EST 12/30/2011 6:10 AM EST Narrative Resulting Agency Comment Spec In Lab Remigio Ceron MD CHEMISTRY ORDERABLES Performing Organization Address [facility] Co de Phone Number [facility] * (ABNORMAL) LDL Cholesterol, Direct (12/30/2011 5:45 AM EST) LDL Cholesterol, Direct 110(H) <=99 mg/dL [facility] Comment: The National Cholesterol Education Program (NCEP) has set the following guidelines for LDL Cholesterol: Reference range: ?? Optimal: ?<100 mg/dL ?? Near Optimal/Above Optimal: ?? 100-129 mg/dL ?? Borderline high: ?130-159 mg/dL ?? High: ? 160-189 mg/dL ?? Very high: ?>jj=023 mg/dL ELISEO 2001: 285(11):2766-6333 Blood specimen (specimen) 12/30/2011 5:45 AM EST 12/30/2011 6:10 AM EST Narrative Resulting Agency Comment Spec In Lab Remigio Ceron MD CHEMISTRY ORDERABLES [facility] * (ABNORMAL) Cardiac Enzymes (12/30/2011 5:45 AM EST) [facility] Troponin-T 0.05(H) <=0.03 ng/mL [facility] Comment: 0.03 ng/mL: Represents the 99th percentile upper reference limit for normals. >0.03 ng/mL: Elevated cardiac troponin T level indicative of myocardial damage. Diagnosis of acute, evolving or recent PA requires a typical rise and gradual fall [...] consensus document of the Joint Society of Cardiology/[place] College of Cardiology Committee for the redefinition of myocardial infarction. Journal of the [place] College of Cardiology 2000; 36: 959-969] Creatine [...] ARIAN NELSON RBC Morphology Normal CERNE R PRASHANTIUM Blood specimen (specimen) 12/29/2011 11:29 PM [...] damage. Diagnosis of acute, evolving or recent PA requires a typical rise and gradual fall [...] consensus document of the Joint Society of Cardiology/[place] College of Cardiology Committee for the redefinition of myocardial infarction. Journal of the [place] College of Cardiology 2000; 36: 959-969] Creatine Kinase 86 0 - 200 unit/L ARIAN NELSON Blood specimen (specimen) 12/29/2011 11:29 PM EST 12/29/2011 11:34 PM EST Narrative Resulting Agency Comment Spec In Lab Remigio Ceron MD CHEMISTRY ORDERABLES ARIAN NELSON * Prothrombin Time (12/29/2011 11:29 PM EST) Prothrombin Time 13.2 11.9 - 14.7 sec ARIAN NELSON Comment: [facility] Transfusion Committee Guidelines: INR less than 2.0, PTT less than OR equal to 43.5 seconds, or Fibrinogen greater than or equal to 100 mg/dl indicate adequate procoagulant activity for hemostasis in patients without underlying bleeding disorders. International Normalization Ratio 1.0 0.9 - 1.1 ARIAN NELSON Blood specimen (specimen) 12/29/2011 11:29 PM EST 12/29/2011 11:34 PM EST Narrative Resulting Agency Comment Spec In Lab Remigio Ceron MD HEMATOLOGY ORDERABLE S Performing Organization Address [facility] Co de Phone Number [facility] PRASHANTIUM * Hepatic Function Panel (12/29/2011 11:29 PM [...] ORDERABLES Performing Organization Address [facility] Co de Phone Number ARIAN CERDAIUM * pro-Brain Natriuretic Peptide (12/29/2011 11:29 PM EST) NT-proBNP 114 <=125 pg/mL [facility] CAENNIUM Blood specimen (specimen) 12/29/2011 11:29 PM EST 12/29/2011 11:34 PM EST Narrative Resulting Agency Comment Spec In Lab Remigio Ceron MD CHEMISTRY ORDERABLES Performing Organization Address [facility] Co de Phone Number ARIAN CAB[facility]NER [facility] * TSH (12/29/2011 11:29 PM EST) Thyroid Stimulating Hormone 0.39 0.27 - 4.20 mcIU/mL [facility] ROBYENNIUM Blood specimen (specimen) 12/29/2011 11:29 PM EST 12/29/2011 11:34 PM EST Narrative Resulting Agency Comment Spec In Lab Remigio Ceron MD CHEMISTRY ORDERABLES Performing Organization Address [facility] Co de Phone Number ARIAN CERDAIUM * Phosphorus (12/29/2011 11:29 PM EST) Phosphorus 3.1 2.5 - 4.5 mg/dL CERNER MILLENNIUM Blood specimen (specimen) 12/29/2011 11:29 PM EST 12/29/2011 11:34 PM EST Narrative Resulting Agency Comment Spec In Lab Remigio Ceron MD CHEMISTRY ORDERABLES Performing Organization Address [facility] Co de Phone Number ARIAN CERDAIUM * Magnesium (12/29/2011 11:29 PM EST) Pathologist [facility] Magnesium 0.83 0.69 - 1.07 mmol/L [facility] MILLENNIUM Blood specimen (specimen) 12/29/2011 11:29 PM EST 12/29/2011 11:34 PM EST Narrative Resulting Agency Comment Spec In Lab Remigio Ceron MD CHEMISTRY ORDERABLES Performing Organization Address [facility] de Phone Number ARIAN CERDAIUM * (ABNORMAL) Basic Metabolic Panel (non-fasting) (12/29/2011 11:29 PM EST) Pathologist [facility] Glucose 163 60 - 199 mg/dL CERNER [...] MILLENNIUM Hemoglobin 13.9 13.7 - 17.5 gm/dL [facility] MILLENNIUM Hematocrit 39.6(L) 40.0 - 51.0 % [facility] MILLENNIUM Mean Cell Volume 88.0 79.0 - 92.0 fL [facility] MILLENNIUM Mean Cell Hemoglobin 30.9 25.6 - 32.2 pg [facility] MILLENNIUM Mean Cell Hemoglobin Concentration 35.1 32.0 - 36.5 gm/dL [facility] MILLENNIUM Platelet 221 145 - 370 x10(3)/mc L [facility] MILLENNIUM RDW Standard Deviation 42.0 35.0 - 46.0 fL [facility] MILLENNIUM RDW coefficient of variation 13.0 10.9 - 14.4 % [facility] MILLENNIUM Mean Platelet Volume 10.5 9.0 - 12.0 fL [facility] Blood specimen (specimen) 12/29/2011 11:29 PM EST 12/29/2011 11:34 PM EST Narrative Resulting Agency Comment Spec In Lab Remigio Ceron MD HEMATOLOGY ORDERABLE S Performing Organization Address [facility] de Phone Number [facility] * APTT (12/29/2011 11:29 PM EST) Partial Thromboplastin Time 34 25 - 35 sec [facility] Comment: Recommended therapeutic PTT range for full dose unfractionated heparin is 80-114 seconds. Blood specimen (specimen) 12/29/2011 11:29 PM EST 12/29/2011 11:34 PM EST Narrative Resulting Agency Comment Spec In Lab Remigio Ceron MD HEMATOLOGY ORDERABLE S Performing Organization Address [facility] de Phone Number [facility] * EKG 12 Lead (12/29/2011 11:13 PM EST) Ventricular rate 108 BPM MUSE SYSTEM Atrial Rate 108 BPM MUSE SYSTEM P-R Interval 150 ms MUSE SYSTEM QRS Duration 106 ms MUSE SYSTEM Q-T Interval 340 ms MUSE SYSTEM QTC Calculated (Bezet) 455 ms MUSE SYSTEM Calculated P [place] 19 degrees MUSE SYSTEM Calculated R [place] 31 degrees MUSE SYSTEM Calculated T [place] 51 degrees MUSE SYSTEM INTERPRETATION Sinus tachycardia [...] Hermila Dumas RN) 899 (Given - Provider: Snagita Self RN) protriptyline (VIVACTIL) tablet 10 mg [...] 500 mg, Oral, DAILY PRN, Starting on 2/29/12 at 0700, Until Wed01/08/12 at 1659, Heartburn, [...] Provider: Hermila Dumas RN)0325 (Given - Provider: Herimla Dumas RN)0416 (Given - Provider: Hermila Dumas [...] Routine documented in this encounter Care Teams Railroad Shop Inspector Relationship Specialty Start Date End Date Patric Al MD PCP - General 12/29/11 02/26/19 documented as of this encounter
--- OUTSIDE RECORDS SUMMARY | 2024-10-31 15:48 | XMS_ITS | Encounter Summary ---
Author Organization [facility] Address [address] [place] [address] Care Team Providers Care Tape Duplicator Name Role Phone Cameron Patel TEXTILE COLORIST FORMULATOR Primary Care Provider Encounter Details Date Type Department Care Team (Late st Contact Info) Description 11/23/2005 Office Visit [facility] - [facility] conversion [address] [place] [address] Jorge Urrutia MD [address] [place] [address] Social History Tobacco Use Types [...] similar symptoms. Diagnosed as dental caries. ( [facility] ED - given ibuprofen.). REVIEW OF SYSTEMS [...] pain. No fever or nasal discharge. 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 Symptoms did not [...] filling fell out. Called dentist, Dr. Glass [facility]- couldn't get appt untill next [...] on filedocumented in this encounter Care Teams Tape Duplicator Relationship Specialty Start Date End Date Cameron Patel, TEXTILE COLORIST FORMULATOR [address] [facility] [place] [id number] PCP - General 10/22/09 documented as of this encounter
--- OUTSIDE RECORDS SUMMARY | 2024-10-31 15:48 | XMS_ITS | Encounter Summary ---
Author Organization [facility] Address [address] [place] [address] Care Team Providers Care Glass Bulb Silverer Name Role Phone Unavailable Primary Care Provider Unavailabl e Encounter Details Date Type Department Care Team (Latest Contact Info) Description 03/09/2008 10:00 EDT - 03/09/2008 11:59 EDT Hospital Encounter [facility] - Other [address] [place] [address] Attarian, Wil Llanos MD [address] [address] Discharge Disposition: Auto Discharge Social [...] ? GEOVANNA ARAYA ? Accession #: ? [id number] ? : ? 1975 (Age: 34) ??M [...] tissue with a ? pinpoint lumen. ??Two public health representative cross sections are submitted as (A). ? Received in formalin labelled Zack Geovanna and L vas def is a 0.8 cm in ? length by 0.2 cm in diameter firm, white, focally light maynard tubular segment of ?? tissue with a pinpoint lumen. ??Two public health representative cross sections of the specimen are submitted as (B). (Mary Anne Cheng)/mpl ? End of Report ? [facility] 10/17/2009 10/18/2009 9:3 4 EST us Guanako Gusman MD PATHOLOGY ORDERABLES Final Resul t [facility] [address] [place] [address] * ORBITS FOR FOREIGN BODY (03/09/2008 10:17 EDT) Anatomical Region Laterality Modality Other 03/09/2008 10:1 7 EDT Narrative 04/21/2009 11:08 EDT acc wet read please call [phone] with results corrosion prevention metal sprayer needs orbits prior to mri ORBITS FOR FOREIGN BODY ??March 09, 2008 10:17:00 AM Signs and Symptoms: ??acc wet read please call [phone] with results corrosion prevention metal sprayer needs orbits prior to mri. Two views of the orbits show no metallic foreign body. Procedure Note Song Hall MD - 04/21/2009 acc wet read please call [phone] with results corrosion prevention metal sprayer needs orbits prior to mri ORBITS FOR FOREIGN BODY March 09, 2008 10:17:00 AM Signs and Symptoms: acc wet read please call [phone] with results corrosion prevention metal sprayer needs orbits prior to mri. Two views of the orbits show no metallic foreign body. us Wil Llanos Attleeanna DE IMG DIAGNOSTIC IMAGING ORDER RANDELL Final Result documented in this encounter Visit Diagnoses Not on filedocumented in this encounter
--- OUTSIDE RECORDS SUMMARY | 2024-10-31 15:48 | XMS_ITS | Encounter Summary ---
Author Organization [facility] Address [address] [place] [address] Care Team Providers Care Independent Driver Name Role Phone Cameron Patel TAX SERVICES SPECIALIST Primary Care Provider [phone] Encounter Details Date Type Department Care Team (Late st Contact Info) Description 05/27/2010 Abstract Used for ABSTRACTING Data [phone] Cameron Patel, TAX SERVICES SPECIALIST [address] [place] [address] Social History Tobacco Use Types [...] mouth. added in this encounter Care Teams Independent Driver Relationship Specialty Start Date End Date Cameron Patel TAX SERVICES SPECIALIST [address] [place] [address] PCP - General 10/22/09 documented as of this encounter
[2024-10-31 17:11] LABS: Abs Immature Grans 0.04 10^3/uL (0.0-0.06); Absolute Basophil Count 0.08 10^3/uL (0.0-0.2); Absolute Eosinophil Count 0.18 10^3/uL (0.0-0.7); Absolute Lymphocyte Count 1.87 10^3/uL (1.2-3.4); Absolute Monocyte Count 0.59 10^3/uL (0.1-0.8); Absolute Neutrophil Count 7.43 10^3/uL (1.2-6.7); Basophils % 0.8 %; Eosinophils % 1.8 %; HCT 37.3 % (40.0-50.0); Immature Grans % 0.4 %; Lymphocytes % 18.4 %; MCH 28.6 pg (27.0-33.0); MCHC 32.2 % (32.0-36.0); MCV 89 fL (80-95); Monocytes % 5.8 %; Neutrophils % 72.8 %; Platelet Count 342 10^3/uL (130-400); RDW 13.6 % (11.8-14.1); RDW-SD 44.4 fL; WBC 10.19 10^3/uL (4.4-10.8)
[2024-10-31 17:22] LABS: ALT 19 U/L (16-63); AST 5 U/L (15-37); Alkaline Phosphatase 153 U/L (46-116); Anion Gap 11.4 mmol/L (3-11); BUN 12 mg/dL (7-18); Bilirubin, Total 0.13 mg/dL (0.2-1.0); CO2 26.6 mmol/L (21.0-32.0); CREATININE 0.8 mg/dL (0.70-1.30); Calcium 9.1 mg/dL (8.5-10.1); Chloride 100 mmol/L (98-107); Estimated GFR 107.82 (mL/min/1.73m2); Glucose 319 mg/dL (74-106); Potassium 4.4 mmol/L (3.5-5.1); Sodium 138 mmol/L (136-145); Total Protein 7.2 g/dL (6.4-8.2)
[2024-11-02 10:49] LABS: Creatine Kinase 42 U/L (39-308)
== END 2024-10-31 15:27 | disposition home or self-care (01) ==
LOC: LBN 15:26
PROVIDERS: PCP Student in an Organized Health Care Education/Training Program; Visit Provider Internal Medicine Infectious Disease
DX: T82.7XXA Infection and inflammatory reaction due to other cardiac and vascular devices, implants and grafts, initial encounter (principal)
CPT/HCPCS: 80053; 82550; 85025

== ENCOUNTER 2024-10-31 16:43 | Emergency (ER) | payer OTHER, MEDICAID, SELFPAY ==
[2024-10-31] VITALS (12 sets, daily range): BP systolic 142–192; BP diastolic 72–125; PULSE 98–112; RESP 14–18; TEMP 36.6–37; O2SAT 97–99
--- OUTSIDE RECORDS SUMMARY | 2024-10-31 16:53 | XMS_ITS | Encounter Summary ---
Author Organization [facility] Address [facility] [place] [address] Care Team Providers Care Coal Passer Name Role Phone Charles Romero Primary Care Provider + Encounter Details Date Type Department Care Team (Late st Contact Info) Description 10/23/2024 12:24 PM EST - 10/23/2024 11:59 PM [facility] Hospital Encounter XRay at [address] [place] [address] Isabela Hayward APRN [facility] [place] [address] Vascular graft infection, initial encounter Discharge Disposition: Home Social History Tobacco Use Types Packs/Day Years Used Date Smoking Tobacco: Every Day Cigarettes 1 25 Started: 12/28/1986; Last attempted to quit: 12/28/2011 Smokeless Tobacco: Never Comments:Quit 09/2024 Alcohol Use Standard Drinks/Week Comments No 0 (1 standard drink = 0.6 oz pur e alcohol) [facility] Utilities Answer Date Recorded In [...] in the past 12 m [facility], were you homeless or living [...] - See Instructions). FLUSH PROTOCOL WITH MEDICATIONS ([facility]): Before med infusion: flush with NS [...] - See Instructions). FLUSH PROTOCOL WITH MEDICATIONS ([facility]): Before med infusion: flush with NS [...] to the planned procedure. Hand Hygiene: The printed circuit photographer did perform hand hygiene prior to line insertion. Catheter type: PICC Lot number: [id number] Procedure Technique: Skin was prepped with chlorhexidine. [...] PM EST Office [place] [phone] Isabela Hayward, RESHMA [facility] [place] [address] 11/10/2024 10:00 AM EST Office [place] [phone] Dai Whitman APRN 11/21/2024 2:15 PM EST Office [place] [phone] Dayanara Grover MD [facility] [place] [address] documented as of this encounter Procedures Procedure Name Priority Date/Time Associated Diagnosis Comments XR PICC PLACEMENT OVER 5 YEARS (IV TEAM) Routine 10/23/2024 1:40 PM EST Vascular graft infection, initial encounter documented in this encounter Results * XR PICC Placement Over 5 Years with Imaging Guidance (IV Team) (10/23/2024 1:40 PM EST) WORKSTATION ID [id number] RAD Anatomical Region Laterality Modality N/A Radio [...] have questions please contact the health healthcare manager that requested your imaging first. ? Electronically signed by: Lizbet Snow MD, [facility] ([phone]), at 10/23/2024 2:38 PM Procedure Note Lizbet [...] who have questions please contactthe health healthcare manager that requested your imaging first. Isabela Hayward APRN IMG FLUORO ORDER RANDELL documented in this encounter Visit Diagnoses Diagnosis Vascular graft infection, initial encounter documented in this encounter Care Teams Coal Passer Relationship Specialty Start Date End Date Charles Romero [place] [place] [address] PCP - General Internal Medicine 09/18/24 documented as of this encounter
--- OUTSIDE RECORDS SUMMARY | 2024-10-31 16:53 | XMS_ITS | Encounter Summary ---
Author Organization [facility] [place] [address] Care Team Providers Care Utilities Service Investigator Name Role Phone Charles Romero Primary Care Provider + Encounter Details Date Type Department Care Team (Late st Contact Info) Description 10/31/2024 Telephone [place] [phone] Fallon Lemus, RN Social History Tobacco Use Types Packs/Day Years Used Date Smoking Tobacco: Every Day Cigarettes 1 25 Started: 12/28/1986; Last attempted to quit: 12/28/2011 Smokeless Tobacco: Never Comments:Quit 09/2024 Alcohol Use Standard Drinks/Week Comments No 0 (1 standard drink = 0.6 oz pur e alcohol) [facility] Utilities Answer Date Recorded In the past 12 months has [employer], gas, oil, or water Damage Hounds threatened to shut off services in your [...] any time in the past 12 m [facility], were you homeless or living [...] Encounter - Fallon Lemus RN - 10/31/2024 4:35 PM EST Images from the original note were not included. Pictures of wounds sent by A nurse: Unable to upload photo of leg wound DAVID Viverosconsumer educator [facility] * Telephone Encounter - Fallon Lemus RN - 10/31/2024 3:19 PM EST Incoming call from Luis Enrique with [facility] reporting he was with Lux at the [...] Lux verbalized understanding and agreement to plan. DAVID Viverosconsumer educator [facility] documented in this encounter Plan of Treatment Upcoming Encounters Date Type Department Care Team (Late st Contact Info) Description 11/09/2024 1:30 PM EST Office Visit [place] [address] Isabela Hayward, BRAILLE TEACHER [facility] [place] [address] 11/10/2024 10:00 AM EST Office Visit [place] [address] Dai Whitman APRN 11/21/2024 2:15 PM EST Office Visit [place] [address] Dayanara Grover MD [facility] [address] ENDOCRIN[place] [address] documented as of this encounter Visit Diagnoses Not on filedocumented in this encounter Care Teams Utilities Service Investigator Relationship Specialty Start Date End Date Charles Romero PA [facility] [place] [address] PCP - General Internal Medicine 09/18/24 documented as of this encounter
--- OUTSIDE RECORDS SUMMARY | 2024-10-31 16:53 | XMS_ITS | Encounter Summary ---
Author Organization [facility] [place] [address] Care Team Providers Care Mutuel Teller Name Role Phone Charles Romero Primary Care [...] PM EST Office [place] [address] Isabela Hayward, [facility] [place] [address] 11/10/2024 10:00 AM EST Office [place] [address] Dai Whitman APRN 11/21/2024 2:15 PM EST Office [place] [address] Dayanara Grover MD [facility] [place] [address] documented as of this encounter Visit Diagnoses Not on filedocumented in this encounter Care Teams Mutuel Teller Relationship Specialty Start Date End Date Charles Romero PA [facility] [place] [address] PCP - General Internal Medicine 09/18/24 documented as of this encounter
--- OUTSIDE RECORDS SUMMARY | 2024-10-31 16:53 | XMS_ITS | Clinical Summary ---
Author Organization Formerly [facility] [place] [address] Care Team Providers Care Cleaning Team Member Name Role Phone Charles Romero Primary Care [...] - See Instructions). FLUSH PROTOCOL WITH MEDICATIONS ([facility]): Before med infusion: flush with [...] - See Instructions). FLUSH PROTOCOL WITH MEDICATIONS ([facility]): Before med infusion: flush with [...] up with PCP or Dr Bird in [place] Obesity 08/22/2013 Overview (08/22/2013): Weight is 130.5 Kg on 08/22/13 NSTEMI (non-ST elevated myocardial infarction) 1 Overview (08/21/2013): , NSTEMI, [facility] 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 (SVG to PDA closed 08/27 13) 01/06/2012 Overview (08/22/2013): NSTEMI 12-29-2011 Cath - LAD, PDA and Distal Circ Disease CABG 01-04-2012 (MARTINEZ-LAD, SVG-PDA) Cardiac Cath 08/21/13: [patent MARTINEZ to LAD, occlusion of SVG to RPDA and occlusion of chefornak RCA. LVEDP . PCI of mid and distal LCX (Xience) Echocardiogram 08/21/13: LVEF 65% HTN (hypertension) 12/29/2011 Hyperlipidemia 12/29/2011 Depression 12/29/2011 Narcolepsy 12/29/2011 Encounters Date Type Department Care Team Description 10/31/2024 Telephone [place] [address] Fallon Lemus RN 10/23/2024 12:24 PM EST - 10/23/2024 11:59 PM EST Hospital Encounter XRay at [address] [place] [address] Isabela Hayward APRN Vascular graft infection, initial encounter Discharge Disposition: Home 10/23/2024 Travel 10/20/2024 Notes [place] [address] Hayley Torres MD 10/20/2024 External Results [place] [address] Shannon Tyler LNA MRSA bacteremia 10/20/2024 Telephone [place] [address] Isabela Hayward APRN 10/19/2024 11:50 AM EST Office Visit [place] [address] Isabela Hayward APRN Bacteremia; Vascular graft infection, subsequent encounter; MRSA infection (methicillin-resistan t Staphylococcus aureus); PICC line infiltration, initial encounter; manager long term care current use of antibiotics 10/19/2024 11:30 AM EST Clinical Support [place] [address] Vascular graft infection, initial encounter [T82.7XXA] 10/19/2024 10:00 AM EST Office Visit [place] [address] Dai Whitman, RECEPTION INTERVIEWER Critical limb ischemia of left lower extremity; Infection of vascular bypass graft, sequela 10/19/2024 Orders Only Infectious Disease at [place] [phone] Isabela Hayward, RECEPTION INTERVIEWER Vascular graft infection, initial encounter 10/19/2024 Travel 10/13/2024 [place] [address] Libia Nuno MA 10/11/2024 Telephone [place] [address] Vangie Kumar RN 10/07/2024 [place] [address] Amaya Hernandez MD 10/04/2024 3:38 PM EST - 10/04/2024 5:32 PM EST [place] [address] Kimberli Dickson MD DEBRIDEMENT SKIN AND SUBCU, LOWER EXTREMITY (WRVU 1.01) 10/04/2024 3:08 PM EST Anesthesia [place] [address] Isabel Longoria MD Chaimberg, Kathleen H, MD 10/04/2024 9:15 AM EST Anesthesia [place] [address] Michelle Crawford CRNA 10/02/2024 1:24 PM EST Anesthesia [place] [address] Kodi Richardson MD 10/02/2024 1:14 PM EST - 10/02/2024 2:48 PM EST Surgery [place] [address] Hermila Mccormick MD DEBRIDEMENT SKIN, SUBCU, MUSCLE, LOWER EXTREMITY (WRVU 2.7) 09/29/2024 11:59 PM EST Anesthesia Event Main Operating Room [place] [address] Penny Mathias MD 09/29/2024 2:11 PM EST - 09/29/2024 3:47 PM EST Surgery Main Operating Room [place] [address] Anabel Finney MD @EXPLORATION W\O SURGICAL REPAIR, FEMORAL ARTERY - JENNIFER (WRVU 7.5) 09/29/2024 2:07 PM EST Anesthesia [place] [address] Penny Mathias MD Maliszewski, Matthew S [facility] 09/28/2024 11:29 AM EST Anesthesia Event Main Operating Room [place] [address] Isabel Longoria MD 09/28/2024 10:25 AM EST - 09/28/2024 12:15 PM EST Surgery Main Operating Room [place] [address] Hayley Torres MD REV. FEM. ANASTOMOSIS OF SYN. BYPASS GRAFT USING NONAUTOGENOUS PATCH ANGIOPLASTY-JENNIFER (WRVU 23.15) 09/27/2024 3:47 PM EST Anesthesia Event Main Operating Room [place] [phone] Joaquina Amor MD Hartmann, Patrick R, MD 09/27/2024 3:10 PM EST - 09/27/2024 5:00 PM EST Surgery [place] [address] Hayley Torres MD DEBRIDEMENT SKIN AND SUBCU, LOWER EXTREMITY (WRVU 1.01) 09/26/2024 3:53 PM EST Anesthesia Event Main Operating Room [place] [phone] Marco Santana MD PecSigrid grajeda DO 09/26/2024 3:22 PM EST - 09/26/2024 6:45 PM EST Surgery [place] [address] Hayley Torres MD EXCISION OF INFECTED GRAFT FROM LOWER EXTREMITY (WRVU 9.53) 09/26/2024 2:08 PM EST - 10/10/2024 5:11 PM EST Hospital Encounter Surgical Unit Level 4 Wing D at [place] [phone] Kimberli Dickson MD Beach, Jocelyn M, MD Vascular graft infection, initial encounter; PAD (peripheral artery disease); Critical limb ischemia of left lower extremity; MRSA bacteremia; QT prolongation Discharge Disposition: Home with VNA 09/26/2024 1:55 PM EST Ancillary Procedure Radiology Library at [facility] [place] [address] Kimberli Dickson MD 09/26/2024 10:25 AM EST Ancillary Procedure Radiology Library at [facility] [place] [address] Kimberli Dickson MD 09/26/2024 Telephone [place] [address] Kimberli Dickson MD 09/26/2024 Notes Only Vascular Surgery at [place] [phone] Kimberli Dickson MD 09/25/2024 Telephone [place] [address] Fallon Lemus RN 09/21/2024 Telephone [place] [address] Lovely Huitron, RN 09/20/2024 Ancillary Procedure Radiology Library at [facility] [place] [address] Kimberli Dickson MD 09/18/2024 11:20 AM EST Office Visit Cardiology at [place] [phone] Josh Olivarez MD Coronary artery disease, unspecified vessel or lesion type, unspecified whether angina present, unspecified whether chefornak or transplanted heart 09/18/2024 Travel 09/06/2024 Notes [place] [address] Fallon Lemus RN 09/06/2024 Telephone [place] [address] Fallon Lemus RN 08/29/2024 Orders Only Vascular Surgery at [place] [phone] Viviana Resendiz APRN Heart failure with mildly reduced ejection fraction (HFmrEF); Cardiomyopathy, unspecified type; Hx of CABG 08/28/2024 2:00 PM EDT Office [place] [address] Kimberli Dickson MD PAD (peripheral artery disease) 08/28/2024 1:00 PM EDT Tech [place] [address] Erick Jama [place] Critical limb ischemia of left lower extremity 08/28/2024 Travel 08/28/2024 [place] [address] Hermila White APRN Critical limb ischemia of left lower extremity 08/28/2024 Orders [place] [address] Vibha Benson APRN Critical limb ischemia of left lower extremity 08/17/2024 3:30 PM EDT Office [place] [address] Viviana Resendiz APRN PAD (peripheral artery disease); Encounter for post surgical wound check; Status post amputation of lesser toe of left foot 08/17/2024 Travel 08/01/2024 7:30 AM EDT - 08/01/2024 1:43 PM EDT Surgery Main Operating Room [place] [phone] Lisette Maldonado MD @BYPASS GRAFT, FEM-ANT TIBIAL, -POST TIBIAL, -PERONEAL, -DP W\ SYNTHETIC CONDUIT (WRVU 23.66) 08/01/2024 7:28 AM EDT Anesthesia Event Main Operating Room [place] [phone] Cornelius Church MD Maliszewski, Matthew S, MANGLE FEEDER 08/01/2024 5:32 AM EDT - 08/03/2024 4:45 PM EDT Hospital Encounter Surgical Unit Level [place] [address] Lisette Maldonado MD Critical limb [...] PM EST Office Visit [place] [address] Isabela Hayward, RECEPTION INTERVIEWER [facility] [place] [address] 11/10/2024 10:00 AM EST Office Visit [place] [address] Dai Whitman, RECEPTION INTERVIEWER 11/21/2024 2:15 PM EST Office [place] [address] Dayanara Grover MD [facility] [place] [address] Health Maintenance Due Date Last Done Comments [...] history exists Medical Devices Implanted Type Area Sales Project Engineer Device Identifier Shelf Expiration Date Model / Serial / Lot Cable,Sternal ([id number]) - [id number] Implanted:Qty : 1 on 01/04/2012 at [facility] IMPLANTS N/A: Chest [employer] SURGICAL TECHNOLOGY - [id number] 09/03/2016 [id number] / [id number] / [id number] Cable,Sternal ,Single ([id number]) - [id number] Implanted:Qty : 1 on 01/04/2012 at [facility] IMPLANTS N/A: Chest [employer] SURGICAL TECHNOLOGY - [id number] 09/03/2016 [id number] / [id number] / [id number] Graft Soft Tissue 0.8x8cm Square Bovine Xenosure ([id number]) ([employer]ore[employer]) - [id number] Implanted:Qty : 1 on 08/01/2024 by Lisette Maldonado MD at [facility] IMPLANTS Left: Arterial [employer] - LEIM[employer]RE 01/05/2030 E0.8P8 / 0000 / [id number] Description:left femoral art wei Graft Vascular [id number] Straight Heparin Coated Thin Wall ([id number]) - [id number] Implanted:Qty : 1 on 08/01/2024 by Lisette Maldonado MD at [facility] IMPLANTS Left: Leg [employer] AN [id number] 04/05/2027 [id number] / [id number] / Description:fem-tib (upper l eg to lower leg) vascular bypass graft Graft Bone Filler 20ml Calcium Sulfate Powder Injectable ([id number]) - [id number] Implanted:Qty : 1 on 08/01/2024 by Lisette Maldonado MD at [facility] IMPLANTS Left: Leg [employer] - BI[employer]I [id number] 01/05/2027 620-020 / / [id number] Description:mixed with 1 g v ancomycin Procedures [...] 4:28 PM EST Debridement, Skin, Sub-Q Tissue (27474) 10/04/2024 3:10 PM EST Status post explant of infected left WIRE BRUSHER-BK pop bypass graft DEBRIDEMENT SKIN AND SUBCU, [...] Debridement Muscle And Fascia 20 Sq Cm/< (67092) 10/02/2024 1:28 PM EST Infected LLE graft [...] Debridement Muscle And Fascia 20 Sq Cm/< (56214) 09/29/2024 2:06 PM EST explanted LLE infected graft Exploration Not Followed By Surg Lower Extremity Artery (47789) 09/29/2024 2:06 PM EST explanted LLE infected [...] 10 PM EST Excision, Infec Graft, Extremity (59144) 09/28/2024 11:28 AM EST Infected explanted left leg bypass graft Form Skin Pedicle Flap Scalp, Arm, Leg (64952) 09/28/2024 11:28 AM EST Infected explanted left leg bypass graft Unlisted Procedure Vascular Surgery (57402) 09/28/2024 11:28 AM EST Infected explanted left leg bypass graft Revision Femoral Anast Bpg Groin Open W/Nonautog Patch Graft (06918) 09/28/2024 11:28 AM EST Infected explanted left [...] EST I&D Deep Abscess Bursa/Hematoma Thigh/Knee Region (47908) 09/27/2024 3:45 PM EST Infected explanted left leg bypass graft Drain Lower Leg Deep Absc/Hematoma (20196) 09/27/2024 3:45 PM EST Infected explanted left leg bypass graft Excision, Infec Graft, Extremity (65658) 09/27/2024 3:45 PM EST Infected explanted left leg bypass graft Debridement, Skin, Sub-Q Tissue (93221) 09/27/2024 3:45 PM EST Infected explanted left [...] EST I&D Deep Abscess Bursa/Hematoma Thigh/Knee Region (03992) 09/26/2024 3:52 PM EST left infected femoral to below knee bypass graft Drain Lower Leg Deep Absc/Hematoma (29067) 09/26/2024 3:52 PM EST left infected femoral to below knee bypass graft Excision, Infec Graft, Extremity (40692) 09/26/2024 3:52 PM EST left infected femoral to below knee bypass graft BLOOD GAS VENOUS POC Routine 09/26/2024 3:28 PM EST EXCISION OF INFECTED GRAFT FROM LOWER EXTREMITY Routine 09/26/2024 2:46 PM EST ABORH RECHECK (PATIENT HISTORY FOUND) Routine 09/26/2024 2:39 PM EST TYPE AND SCREEN ([facility]/[place]ABITA) STAT 09/26/2024 2:39 PM EST SCAN, PERIPHERAL [...] 8:04 AM EDT Bypass Graft Othr, Fem-Tibial (43724) 08/01/2024 7:34 AM EDT CLTI POC, GLUCOSE Routine 08/01/2024 6:23 AM EDT BYPASS GRAFT, FEM-ANT TIBIAL, -POST TIBIAL, -PERONEAL, -DP W\ SYNTHETIC CONDUIT Routine 08/01/2024 6:03 AM EDT IMPLANTABLE DEVICES SCAN 08/01/2024 12:00 AM EDT HDL/CHOL PROFILE Routine 07/18/2024 3:33 AM EDT U ALBUMIN/CRE RATIO Timed 01/06/2012 9 :03 PM EST HELEN complete wo contrast (96317) nstemi afib from Last 3 Months or Most Recently Relevant to Health Maintenance Results * XR PICC Placement Over 5 Years with Imaging Guidance (IV Team) (10/23/2024 1:40 PM EST) Only the most recent of3 resultswithin the time period is included. [employer] WORKSTATION ID [id number] RAD Anatomical Region Laterality Modality N/A Radio [...] who have questions please contact the health childcare aide that requested your imaging first. ? Procedure [...] patients who have questions please contactthe health childcare aide that requested your imaging first. Electronically signed by: Lizbet Snow [facility] ([phone]), at 10/23/2024 2:38 PM Isabela Hayward RECEPTION INTERVIEWER IMG FLUORO ORDER RANDELL * Scan Doc: Lab (10/16/2024 12:00 AM EST) Narrative 10/16/2024 12:00 AM EST Ordered by an unspecified provider. Scanning Provider MEDIA MGR SCAN EXT O RDR/RSLT * (ABNORMAL) CBC (with Diff) (10/16/2024) Only the most recent of18 resultswithin the time period is included. WBC - External 10.99(H) [facility] RBC - External 3.71(L) [facility] Hemoglobin - External 10.8(L) Hematocrit - External 33.8(L) MCV - External 91 [facility] MCH - External 29.1 [facility] MCHC - External 32.0 [facility] RDWCV - External 14.2(H) Platelets - External 512(H) MPV - External 9.8 [facility] NRBC % - External 0.0 NRBC Abs [...] HEMATOLOGY ORDERABLE S Performing Organization Address City/[facility] Co de Phone Number [address] [phone] * CK (10/16/2024) Only the most recent of3 resultswithin the time period is included. CK, Total - External 39 Blood VENOUS BLOOD SPECIMEN / Unknown 10/16/2024 Amaya Hernandez MD CHEMISTRY ORDERABLES Performing Organization Address City/[facility]/ZIP Co de Phone Number [address] [place] [phone] * (ABNORMAL) Comprehensive metabolic panel Non-fasting (10/16/2024) Glucose Lvl - External 124(H) Blood Urea Nitrogen - External 17 Creatinine - External 0.9 EGFR - External 104.05 [facility] Anion Gap - External 11.6(H) Sodium - External 141 Potassium - External 4.3 Chloride - External 103 CO2 - External 26.4 [facility] Calcium - External 9.0 Protein, Total - External 6.9 Albumin - External 3.0(L) Total Bilirubin - External 0.20 Alk Phos - External 124(H) AST (SGOT) - External 12 ALT (SGPT) - External 22 Blood VENOUS BLOOD SPECIMEN / Unknown 10/16/2024 Amaya Hernandez MD CHEMISTRY ORDERABLES [address] [place] [phone] * POC, GLUCOSE (10/10/2024 4:27 PM EST) Only the most recent of114 resultswithin the time period is included. Glucometer, POC 172 65 - 199 mg/dL 10/10/2024 4:27 PM EST [facility] Comment:Supplemental ranges: <140 mg/dL before meals <180 mg/dL all other times of the day. Blood CAPILLARY BLOOD / Unknown 10/10/2024 4:27 PM EST 10/10/2024 4:27 PM EST Hayley Torres MD POINT OF CARE TEST O RDERABLES [facility] [place] [address] * Phosphorus (10/10/2024 12:33 AM EST) Only the most recent of13 resultswithin the time period is included. [facility] Phosphorus 3.8 2.5 - 4.5 mg/dL 10/10/2024 1:12 AM [facility] Blood VENOUS BLOOD SPECIMEN / Unknown Venipuncture / Unknown 10/10/2024 12:33 AM EST 10/10/2024 12:43 AM EST Hayley Torres MD CHEMISTRY ORDERABLES Performing Organization Address [facility] de Phone Number [facility] [place] [address] * Magnesium (10/10/2024 12:33 AM EST) Only the most recent of17 resultswithin the time period is included. [facility] Magnesium 0.81 0.69 - 1.07 mMol/L 10/10/2024 1:12 AM [facility] Blood VENOUS BLOOD SPECIMEN / Unknown Venipuncture / Unknown 10/10/2024 12:33 AM EST 10/10/2024 12:43 AM EST Hayley Torres MD CHEMISTRY ORDERABLES Performing Organization Address [facility] de Phone Number [facility] [place] [address] * (ABNORMAL) Basic Metabolic Panel (10/10/2024 12:33 AM EST) Only the most recent of17 resultswithin the time period is included. [facility] Glucose 125 65 - 199 mg/dL [...] - 5.0 mMol/L 10/10/2024 1:12 AM EST [facility] Chloride 103 98 - 107 mMol/L 10/10/2024 1:12 AM [facility] Carbon Dioxide 25 22 - 31 mMol/L 10/10/2024 1:12 AM [facility] Anion Gap 10 5 - 15 mMol/L 10/10/2024 1:12 AM EST [facility] Calcium 9.4 8.5 - 10.5 mg/dL 10/10/2024 1:12 AM EST [facility] Est Glomerular Filtration Rate - Male 119 mL/min/1. 73 m?? 10/10/2024 1:12 AM EST [facility] Comment: This [...] AM EST Hayley Torres MD CHEMISTRY ORDERABLES [facility] [place] [address] * Place PICC Line: Contact Vascular Access Page [phone] Extremity to exclude: No restrictions; Is PICC procedure required PRIOR to patients discharge? Yes (10/09/2024 1:55 PM EST) Narrative Jorge Torers RN - 10/09/2024 1:55 PM EST Jorge [...] to the planned procedure. Hand Hygiene: The cloth doffer did perform hand hygiene prior to line insertion. Catheter type: PICC Lot number: [id number] Procedure Technique: Skin was prepped with chlorhexidine. [...] Successful PICC insertion Jorge Torres RN 10/09/2024 Maraí Carranza APRN PROCEDURE/MINOR SURGICAL ORDERABLES * Vancomycin Level, Random (10/08/2024 5:59 AM EST) Only the most recent of2 resultswithin the time period is included. Vancomycin, Random 6.8 mg/L 2023 7:58 AM EST [facility] Comment:This level is for de termination of the patient's vancomycin sgii-vnwtx-xcp-curve (AUC) value. Contact the inpatient pharmacy for interpretation. Blood VENOUS BLOOD SPECIMEN / Unknown Venipuncture / Unknown 10/08/2024 5:59 AM EST 10/08/2024 7:29 AM EST Hayley Torres MD CHEMISTRY ORDERABLES [facility] [address] * Scan Doc: Telemetry Strips (10/07/2024 7:23 AM EST) Only the most recent of13 resultswithin the time period is included. Narrative 10/07/2024 7:23 AM EST Ordered by an unspecified provider. Scanning Provider MEDIA MGR SCAN EXT O RDR/RSLT * Place PICC Line: Contact Vascular Access Page [phone] Extremity to exclude: No restrictions; Is PICC [...] to the planned procedure. Hand Hygiene: The cloth doffer did perform hand hygiene prior to line insertion. Catheter type: PICC Lot number: [id number] Procedure Technique: Skin was prepped with chlorhexidine. [...] (Bezet) 490 ms MUSE SYSTEM Calculated P [place] 34 degrees MUSE SYSTEM Calculated R [place] 11 degrees MUSE SYSTEM Calculated T [place] 59 degrees MUSE SYSTEM INTERPRETATION Normal sinus rhythm Cannot rule out Inferior infarct , age undetermined Nonspecific T wave abnormality Borderline ECG When compared with ECG of 29-MAY-2024 14:51, Nonspecific T wave abnormality now evident in Lateral leads Confirmed by MD Robert, Deandre Guadarrama ([id number]) on 10/05/2024 3:35:42 PM MUSE SYSTEM 10/04/2024 7:14 PM EST 10/05/2024 3:35 PM EST Hayley Torres MD ECG ORDERABLES MUSE SYSTEM * Vancomycin, trough (10/04/2024 7:53 AM EST) Only the most recent of3 resultswithin the time period is included. Pathologist [facility] Vancomycin, Trough 19.8 10.0 - 20.0 mg/L 10/04/2024 9:16 AM EST [facility] Comment: Varies according to infection source. Blood VENOUS BLOOD SPECIMEN / Unknown Venipuncture / Unknown 10/04/2024 7:53 AM EST 10/04/2024 8:11 AM EST Hayley Torres MD CHEMISTRY ORDERABLES [facility] [address] * (ABNORMAL) Scan, Peripheral Blood (10/01/2024 2:02 AM EST) Only the most recent of2 resultswithin the time period is included. [facility] RBC Morphology Abnormal 10/01/2024 2:55 AM EST [facility] Platelet Estimate Increased(A) Normal 10/01 2:55 AM EST [facility] Polychromasia Present 10/01/2024 2:55 AM EST [facility] Platelet Clumps Present(A) (none) 2:55 AM EST [facility] Blood VENOUS BLOOD SPECIMEN / Unknown Venipuncture / Unknown 10/01/2024 2:02 AM EST 10/01/2024 2:10 AM EST Hayley Torres MD HEMATOLOGY ORDERABLE S [facility] [place] [address] * Potassium (09/30/2024 6:27 AM EST) Only the most recent of5 resultswithin the time period is included. Pathologist [facility] Potassium 3.9 3.5 - 5.0 mMol/L 09/30/2024 7:10 AM EST [facility] Blood VENOUS BLOOD SPECIMEN / Unknown Venipuncture / Unknown 09/30/2024 6:27 AM EST 09/30/2024 6:35 AM EST Hayley Torres MD CHEMISTRY ORDERABLES Performing Organization Address City/[facility]/ZIP Co de Phone Number [facility] [place] [address] * Blood culture (09/29/2024 9:24 PM EST) Only the most recent of6 resultswithin the time period is included. Blood Culture No growth at 120 hours 10/04/2024 11:01 PM EST [facility] Blood VENOUS BLOOD SPECIMEN / Unknown Venipuncture / Unknown 09/29/2024 9:24 PM EST 09/29/2024 9:34 PM EST Hayley Torres MD MICROBIOLOGY - BLOOD ORDERABLES Performing Organization Address City/[facility] Co de Phone Number [facility] [place] [address] * (ABNORMAL) Hemoglobin A1c (09/28/2024 11:51 PM EST) Hemoglobin A1c 9.7(H) 4.3 - 5.6 % 09/29/2024 9:54 AM EST [facility] Comment: Per ADA guidelines, [...] red blood cell turnover may not be traveling representative of glycemic control. Reference Interval: 4.3 - 5.6% 5.7 - 6.4%: Consistent with prediabetes >=6.5%: Consistent with diagnosis of diabetes mellitus Estimated Average Glucose 232 mg/dL 09/29/2024 9:54 AM EST [facility] Blood VENOUS BLOOD SPECIMEN / Unknown Venipuncture / Unknown 09/28/2024 11:51 PM EST 09/28/2024 11:56 PM EST Hayley Torres MD CHEMISTRY ORDERABLES [facility] [address] * (ABNORMAL) Blood Gas, Arterial POC (09/28/2024 3:16 PM EST) Only the most recent of3 resultswithin the time period is included. pH, Arterial 7.42 7.35 - 7.45 09/28/2024 3:17 PM EST [facility] PCO2, Arterial 39 35 [...] [facility] Sodium, Arterial 131(L) 135 - 145 mmol/L 09/28/2024 3:17 PM EST [facility] Potassium, Arterial 3.8 3.5 - 5.0 mmol/L 09/28/2024 3:17 PM EST [facility] Chloride, Arterial 99 98 - 107 mmol/L 09/28/2024 3:17 PM EST [facility] Lactate, Arterial 1.1 0.5 - 2.2 mmol/L 09/28/2024 3:17 PM EST [facility] IONIZED CALCIUM, ARTERIAL 1.08(L) 1.15 - 1.33 mmol/L 09/28/2024 3:17 PM EST [facility] Glucose, Arterial 163 65 - 199 mg/dL 09/28/2024 3:17 PM EST [facility] Comment:Glucose Concentratio n >=200 mg/dL plus symptoms is consistent with Diabetes Mellitus. Blood ARTERIAL BLOOD / Unknown 09/28/2024 3:16 PM EST 09/28/2024 3:17 PM EST Hayley Torres MD POINT OF CARE TEST O RDERABLES Performing Organization Address City/State/[facility] Co de Phone Number [facility] [place] [place] [address] * Surgical Pathology (09/28/2024 2:10 PM EST) Case Report Surgical Pathology Report ? Case: [id number] ? Authorizing Provider: ??Hayley Torres MD ? Collected: ? 09/28/2024 1410 ? Ordering Location: ? Main Operating Room Akanksha ?? Received: ?09/28/2024 1644 ? [facility] ? Hospital ? [...] diagnosis only sns 10/02/2024 8:17 AM EST [facility] Result Note Routine 10/02/2024 8:17 AM EST [facility] Floor Refinisher STRUCTURE OF LEFT LOWER LIMB / Unknown 09/28/2024 2:10 PM EST 09/28/2024 4:44 PM EST Comment:Left femoral proxima l graft Biomedical device (physical object) STRUCTURE OF LEFT LOWER LIMB / Unknown 09/28/2024 2:17 PM EST 09/28/2024 4:44 PM EST Comment:Left distal BK pop g raft Hayley Torres MD PATHOLOGY/CYTOLOGY O RDERABLES [facility] [place] [address] * ELEN, legs, multiple levels (09/28/2024 7:44 AM EST) VB Text Report Department: Vascular Surgery Lab Patient: [id number] (GEOVANNA DIXON) CPT: 05417 Referring Physician: HERMILA SNIDER ?? Phone: Indications: [...] EST Narrative 09/28/2024 9:15 AM EST 1 [place] [address] ? Echocardiogram Report Name: GEOVANNA DIXON JR ?Study Date: 09/28/2024 06:56 AMBP: 132/75 mmHg ? Patient Location: ^IC08^A : 1975 ? Height: 179 cm ? Account: [id number] Age: 49 yrs ? Weight: 108 kg Gender: Male ?BSA: 2.3 m2 Ordering Physician: Kimberli Dickson MD Referring Physician: PATRIC GILES Performed By: Faiza Cole Reason For Study: Vascular graft infection, initial encounter; MRSA bacteremia Interpreting Fellow: Jame Lares. Exam Location: [facility]. Interpretation Summary -Limited study performed for [...] 05/29/2024, no significant changes. Procedure Limited - 76365. Doppler - 84384. Color Doppler - 43196. Suboptimal quality. This study is limited because [...] Note David Lomeli MD - 09/28/2024 1 [place] [address] Echocardiogram Report Name: GEOVANNA DIXON JR Study Date: 406:56 AMBP: 132/75 mmHg Patient Location:^IC08^A : 1975 Height: 179 cm Account: [id number] Age: 49 yrs Weight: 108 kg Gender: Male BSA: 2.3 m2 Ordering Physician: Kimberli Dickson MD Referring Physician: PATRIC GILES Performed By: Faiza Cole Reason For Study: Vascular graft infection, initial encounter; MRSAbacteremia Interpreting Fellow: Jame Lares. Exam Location: [facility]. Interpretation Summary -Limited study performed for [...] 05/29/2024, no significant changes. Procedure Limited - 03152. Doppler - 55054. Color Doppler - 76965. Suboptimalquality. This study is limited because of [...] - 45.0 fL 09/27/2024 6:16 PM EST [facility] RDW coefficient of variation 13.0 11.4 - 13.8 % 09/27/2024 6:16 PM EST [facility] NRBC% auto 0.0 % 09/27/2024 6:16 PM EST [facility] NRBC Absolute <0.01 <0.01 x10(3)/mc L 09/27/2024 6:16 PM EST [facility] Blood VENOUS BLOOD SPECIMEN / Unknown Venipuncture / Unknown 09/27/2024 5:55 PM EST 09/27/2024 6:05 PM EST Kimberli Dickson MD HEMATOLOGY ORDERABLE S Performing Organization Address [facility]/ZIP Co de Phone Number [facility] [place] [address] * Anaerobic Culture (09/27/2024 4:54 PM EST) Only the most recent of3 resultswithin the time period is included. Anaerobic Culture No anaerobic organisms isolated 10/01/2024 3:54 PM EST [facility] Tissue STRUCTURE OF LEFT THIGH / Unknown 09/27/2024 4:54 PM EST Comment:Infected explanted l eft leg bypass graft Hayley Torres MD MICROBIOLOGY - GENER AL ORDERABLES Performing Organization Address City/[facility]/ZIP Co de Phone Number [facility] [place] [address] * (ABNORMAL) Tissue Culture, Aerobic Only (09/27/2024 4:54 PM EST) Tissue Culture Rare Methicillin Resistant Staphylococcus aureus(A) VITEK 2 METHOD 10/01/2024 1:18 PM EST [facility] Gram Stain Few Neutrophils seen 10/01/2024 1:18 PM EST [facility] Gram Stain No microorganisms seen 10/01/2024 1:18 PM EST [facility] Tissue STRUCTURE OF LEFT [...] GENER AL ORDERABLES Performing Organization Address City/[facility] Co de Phone Number [facility] [place] [address] * Fungus culture (09/27/2024 4:54 PM EST) Only the most recent of3 resultswithin the time period is included. Fungus Culture No fungus isolated 10/31/2024 7:55 AM EST [facility] Tissue STRUCTURE OF LEFT THIGH / Unknown 09/27/2024 4:54 PM EST 09/27/2024 5:23 PM EST Comment:Infected explanted l eft leg bypass graft Hayley Torers MD MICROBIOLOGY - GENER AL ORDERABLES Performing Organization Address City/[facility] Co de Phone Number [facility] [place] [address] * CT Lower Extremity w Contrast Left (09/27/2024 9:16 AM EST) Finding Something 3 Signature WORKSTATION ID [id number] [facility] Anatomical Region Laterality Modality Hip, Leg, [...] who have questions please contact the health childcare aide that requested your imaging first. ? Narrative [...] wedged between the vastus medialis and adductor Grainfield muscle. This tracks into the popliteal fossa [...] is wedgedbetween the vastus medialis and adductor Grainfield muscle. This tracks into thepopliteal fossa and [...] patients who have questions please contactthe health childcare aide that requested your imaging first. Rose Wright APRN IM CT ORDERABL ES * (ABNORMAL) MRSA PCR Screen (09/27/2024 7:51 AM EST) Pathologist [facility] MRSA PCR Detected(A ) 09/27/2024 11:56 AM EST [facility] Swab BOTH ANTERIOR NARES / Unknown Non Blood Collection / Unknown 09/27/2024 7:51 AM EST 09/27/2024 8:05 AM EST Narrative [facility] - 09/27/2024 11:56 AM EST This test was performed using the Xpert MRSA NxG test kit and is run on the [employer] GeneXpert Dx System. This test is cleared by the U.S. Food and Drug Administration for clinical use and its performance characteristics have been verified by the [facility] at [facility]. Kimberli Dickson MD MOLECULAR ORDERABLES [facility] [place] [address] * (ABNORMAL) Sonicated Tissue/Implant Culture (09/26/2024 5:16 PM EST) Pathologist [facility] Sonicated Tissue/Implan t Culture Methicillin Resistant Staphylococcus aureus(A) VITEK 2 METHOD 09/30/2024 1:49 PM EST [facility] Comment: isolated from broth culture. Susceptibilities previously reported. Vascular Graft STRUCTURE OF LEFT LOWER LIMB / Unknown Non Blood Collection / Unknown 09/26/2024 5:16 PM EST 09/26/2024 5:45 PM EST Kimberli Dickson MD MICROBIOLOGY - [facility] AL ORDERABLES [facility] [place] [address] * (ABNORMAL) Abscess/Wound Aspirate Culture, Aerobic Only (09/26/2024 5:02 PM EST) Only the most recent of2 resultswithin the time period is included. Abscess/Wound Aspirate Culture Many Methicillin Resistant Staphylococcus aureus(A) VITEK 2 METHOD 09/30/2024 1:37 PM EST [facility] Gram Stain Many neutrophils(A) 09/30/2024 1:37 PM EST [facility] Gram Stain Many Gram positive cocci(A) 09/30/2024 1:37 PM EST [facility] Abscess STRUCTURE OF LEFT [...] Torres MD MICROBIOLOGY - GENER AL ORDERABLES [facility] [place] [address] * (ABNORMAL) Blood Gas, Venous POC (09/26/2024 3:28 PM EST) pH, Venous 7.43(H) 7.32 - 7.42 09/26/2024 3:30 PM EST [facility] PCO2, Venous 41 38 - 58 mmHg 09/26/2024 3:30 PM EST [facility] PO2, Venous 18 16 - 65 mmHg 09/26/2024 3:30 PM EST [facility] Bicarbonate, Venous 26.6 22 - 31 mmol/L 09/26/2024 3:30 PM [facility] Base Excess, Venous 2.3 1.9 - 4.5 mmol/L 09/26/2024 3:30 PM EST [facility] Hemoglobin, Venous 12.4(L) 13.7 [...] 0.4 <=1.5 % 09/26/2024 3:30 PM EST [facility] Sodium, Venous 127(L) 135 - 145 mmol/L 09/26/2024 3:30 PM EST [facility] Potassium, Venous 3.3(L) 3.5 - 5.0 mmol/L 09/26/2024 3:30 PM EST [facility] Chloride, Venous 91(L) 98 - 107 mmol/L 09/26/2024 3:30 PM EST [facility] Glucose, Venous 259(H) 65 - 199 mg/dL 09/26/2024 3:30 PM EST [facility] Comment:Glucose Concentratio n >=200 mg/dL plus symptoms is consistent with Diabetes Mellitus. Lactate, Venous 2.2 0.5 - 2.2 mmol/L 09/26/2024 3:30 PM EST [facility] Ionized Calcium, Venous 1.09(L) 1.15 - 1.33 mmol/L 09/26/2024 3:30 PM EST [facility] Blood VENOUS BLOOD SPECIMEN / Unknown 09/26/2024 3:28 PM EST 09/26/2024 3:30 PM EST Kimberli Dickson MD POINT OF CARE TEST O RDERABLES Performing Organization Address City/[facility]/ZIP Co de Phone Number [facility] [place] [address] * ABORH RECHECK (PATIENT HISTORY FOUND) (09/26/2024 2:39 PM EST) Pathologist [facility] ABORH Recheck Progress Complete 09/26/2024 5:01 PM EST [facility] Blood VENOUS BLOOD SPECIMEN / Unknown Venipuncture / Unknown 09/26/2024 2:39 PM EST 09/26/2024 2:56 PM EST Kimberli Dickson MD BLOOD BANK LAB ORDER RANDELL Performing Organization Address City/[facility]/ZIP Co de Phone Number [facility] [place] [address] * APTT (09/26/2024 2:39 PM EST) Partial Thromboplastin Time 36 25 - 37 sec 09/26/2024 3:09 PM EST [facility] Comment: The [...] HEMATOLOGY ORDERABLE S Performing Organization Address City/[facility] Co de Phone Number [facility] [place] [address] * (ABNORMAL) Prothrombin Time (09/26/2024 2:39 PM EST) Prothrombin Time 21.6(H) 9.4 - 12.5 sec 09/26/2024 3:09 PM EST [facility] International Normalization Ratio 1.9 <=4.9 09/26/2024 3:09 PM EST [facility] Comment: An INR < [...] ORDERABLE S Performing Organization Address [facility] Co de Phone Number [facility] [place] [address] * (ABNORMAL) Fibrinogen (09/26/2024 2:39 PM EST) Fibrinogen >1,000(H) 200 - 393 mg/dL 09/26/2024 3:09 PM EST [facility] Comment: A fibrinogen level >100 mg/dL is adequate for hemostasis in most patients without underlying bleeding disorders. Blood VENOUS BLOOD SPECIMEN / Unknown Venipuncture / Unknown 09/26/2024 2:39 PM EST 09/26/2024 2:50 PM EST Kimberli Dickson MD HEMATOLOGY ORDERABLE S [facility] [place] [address] * Type and screen ([facility]JACKELYN/BABITA) (09/26/2024 2:39 PM EST) Pathologist [facility] ABORH Type A POSITIVE 09/26/2024 3:45 PM EST [facility] PATIENT HISTORY Found 09/26/2024 3:45 PM EST [facility] Expires at 2359 on: 09/29/2024 09/26/2024 3:45 PM EST [facility] ANTIBODY SCREEN AUTOMATED Negative 09/26/2024 3:45 PM EST [facility] T&S only valid at [facility] 09/26/2024 3:45 PM EST [facility] Blood VENOUS BLOOD SPECIMEN / Unknown Venipuncture / Unknown 09/26/2024 2:39 PM EST 09/26/2024 2:56 PM EST Narrative [facility] - 09/26/2024 3:45 PM EST This Type and Screen result is only valid at the [facility] Kimberli Dickson MD BLOOD BANK LAB ORDER RANDELL [facility] [place] [address] * (ABNORMAL) Hepatic Function Panel (09/26/2024 2:39 PM EST) Pathologist [facility] Albumin 3.1(L) 3.2 - 5.2 g/dL 09/26/2024 4:23 PM EST [facility] Aspartate Aminotransferase 16 <=39 unit/L 09/26/2024 4:23 PM EST [facility] Alanine Aminotransferase 14 0 - 55 unit/L 09/26/2024 4:23 PM EST [facility] Alkaline Phosphatase 160(H) 40 - 130 unit/L 09/26/2024 4:23 PM EST [facility] Bilirubin, Total 0.4 <=1.3 mg/dL 09/26/2024 4:23 PM EST [facility] Bilirubin, Direct 0.2 0.0 - 0.3 mg/dL 09/26/2024 4:23 PM EST [facility] Protein, Total 7.0 6.1 - 8.0 g/dL 09/26/2024 4:23 PM EST [facility] Blood VENOUS BLOOD SPECIMEN / Unknown Venipuncture / Unknown 09/26/2024 2:39 PM EST 09/26/2024 2:50 PM EST Kimberli Dickson MD CHEMISTRY ORDERABLES [facility] [place] [address] * Request For 2nd Read CT Lower Extremity (09/26/2024 1:50 PM EST) [employer] WORKSTATION ID [id number] DH RAD Anatomical Region Laterality Modality Hip, [...] who have questions please contact the health childcare aide that requested your imaging first. ? Narrative 09/26/2024 3:01 PM EST EXAMINATION: REQUEST FOR 2ND READ CT LOWER EXTREMITY CLINICAL HISTORY: Pt s/p LLE femoral-below knee popliteal bypass with PTFE graft, c/f infection surrounding graft, en route to [facility] for possible vascular surgery intervention; Sending Institution [facility]; Date of exam [id number]; I [...] on series 3, image 8 and 641, 762, 182, 662. No other rim-enhancing fluid collection is seen. [...] c/f infection surrounding graft, en route to [facility] for possiblevascular surgery intervention; Sending Institution [facility]; Date of exam [id number]; Ibelieve [...] on series 3, image 8 and 641, 642,647, 712. No other rim-enhancing fluid collection is [...] patients who have questions please contactthe health childcare aide that requested your imaging first. Kimberli Dickson MD [facility] INTERPRE TATION ORDERABLES * Film Library- Storage Only CT Lower Extremity (09/26/2024 10:21 AM EST) Only the most recent of2 resultswithin the time period is included. Narrative [facility] - 09/26/2024 10:21 AM EST This exam is auto-finalizing. It's purpose is for storage only. Kimberli SMITH FILM LIBRARY ORD ERABLES [place], [place] * Unilat Bypass Graft Assess (08/28/2024 12:55 PM EDT) VB Text Report Department: Vascular Surgery Lab Patient: [id number] (GEOVANNA DIXON) CPT: [id number] Referring Physician: HERMILA SNIDER ?? Phone: Indications: [...] Total 114 mg/dL 07/18/2024 4:50 AM EDT [facility] Comment: Desirable: < 200 mg/dL Borderline High: 200 - 239 mg/dL High: > or = 240 mg/dL HDL Cholesterol 38 mg/dL 4:50 AM EDT [facility] Comment:Males: High Risk: <4 0 mg/dL Non-HDL Cholesterol 76 mg/dL 07/18/2024 4:50 AM EDT [facility] Comment: Desirable: <130 mg/dL Above Desirable: 130-159 mg/dL Borderline High: 160-189 mg/dL High: 190-219 mg/dL Very High: > or = 220 mg/dL Blood VENOUS BLOOD SPECIMEN / Unknown IP Care Team Draw / Unknown 07/18/2024 3:33 AM EDT 07/18/2024 4:21 AM EDT [facility] - 07/18/2024 4:50 AM EDT It [...] ACC/AHA Guidelines (most recently Johann et al. [facility] 08/11/22): * For individuals with atherosclerotic [...] Garcia MD CHEMISTRY ORDERABLES Performing Organization Address City/State/[facility] Co de Phone Number [facility] [place] [address] * Microalbumin, urine, random (01/06/2012 9:03 PM EST) Creatinine, Urine 136 mg/dL CE RNER MILLENNIUM Albumin, Urine 14.4 mg/L CERNE R MILLENNIUM Albumin / Creatinin Ratio, Urine 11 mcg/mg Cr CERNER MILLENNIUM Comment: Reference Range* Random collection (mcg/mg creatinine) Normal ?<30 Microalbuminuria ?? 30 - 300 Clinical Albuminuria ?? >300 *[place] [employer]. Diabetic Nephropathy. Diabetes Care 1997;(Suppl 1):S24-S27 Exercise within 24 hour, infection, fever, CHF, marked hyperglycemia, and marked hypertension may elevate urinary albumin excretion over baseline values. Urine specimen (specimen) 01/06/2012 9:03 PM EST 01/06/2012 10:28 PM EST Narrative Resulting Agency Comment Spec In Lab Alfonso Morales MD URINE ORDERABLES Performing Organization Address [facility] Co de Phone Number CERNER MILLENNIUM from Last 3 Months or Most Recently Relevant to Health Maintenance Advance Directives Documents on File Type Date Recorded Patient Assembler Billiard Table Expl anation Personal Assembler Billiard Table 09/20/2024 2:23 PM cony rios * Attempt [...] of discussion: CPR, intubation OK Care Teams Cleaning Team Member Relationship Specialty Start Date End Date Charles Romero PA [facility] [place] [address] PCP - General Internal Medicine 09/18/24
--- OUTSIDE RECORDS SUMMARY | 2024-10-31 16:54 | XMS_ITS | Encounter Summary ---
Author Organization [facility] [place] [address] Care Team Providers Care Applications Sales Consultant Name Role Phone Charles Romero Primary Care Provider + Encounter Details Date Type Department Care Team (Late st Contact Info) Description 10/11/2024 Telephone [place] [phone] Vangie Kumar, RN Social History Tobacco Use Types Packs/Day Years Used Date Smoking Tobacco: Every Day Cigarettes 1 25 Started: 12/28/1986; Last attempted to quit: 12/28/2011 Smokeless Tobacco: Never Alcohol Use Standard Drinks/Week Comments No 0 (1 standard drink = 0.6 oz pur e alcohol) [facility] Utilities Answer Date Recorded In the past 12 months has e [employer], gas, oil, or water Intrinsity threatened to shut off services in your [...] in the past [address] [facility], were you homeless or [...] Kumar RN - 10/11/2024 2:38 PM EST Sole Trimmer took a phone call from this patient's mom as she was calling to clarify discharge medications for her son. Sole Trimmer reached out to the inpatient SWIMMING PROFESSOR's and asked for some clarification. Sole Trimmer then passed on to the mom that [...] PM EST Office Visit Infectious Disease at [facility] [place] [address] Isabela Hayward, RESHMA [facility] [place] [address] 11/10/2024 10:00 AM EST Office [place] [address] Dai Whitman APRN 11/21/2024 2:15 PM EST Office [place] [address] Dayanara Grover MD [facility] [place] [address] documented as of this encounter Visit Diagnoses Not on filedocumented in this encounter Care Teams Applications Sales Consultant Relationship Specialty Start Date End Date Charles Romero PA [employer] [place] [address] PCP - General Internal Medicine 09/18/24 documented as of this encounter
--- OUTSIDE RECORDS SUMMARY | 2024-10-31 16:54 | XMS_ITS | Encounter Summary ---
Author Organization [facility] [place] [address] Care Team Providers Care Magazine Supervisor Name Role Phone Charles Romero Primary Care Provider + Encounter Details Date Type Department Care Team (Late st Contact Info) Description 10/13/2024 [place] [phone] Libia Nuno MA Social History Tobacco Use Types Packs/Day Years Used Date Smoking Tobacco: Every Day Cigarettes 1 25 Started: 12/28/1986; Last attempted to quit: 12/28/2011 Smokeless Tobacco: Never Alcohol Use Standard Drinks/Week Comments No 0 (1 standard drink = 0.6 oz pur e alcohol) [facility] Utilities Answer Date Recorded In the past 12 months has e [employer], gas, oil, or water navabi threatened to shut off services in your [...] note were not included. Accessed [facility] chart due to the following: Received the PA request below. Our team does not handle the Pas for this department. Messaged Vascular nurse pool as PCP is not one of ours. documented in this encounter Plan of Treatment Upcoming Encounters Date Type Department Care Team (Late st Contact Info) Description 11/09/2024 1:30 PM EST Office Visit [place] [address] Isabela Hayward APRN [facility] [place] [address] 11/10/2024 10:00 AM EST Office Visit [place] [address] Dai Whitman APRN 11/21/2024 2:15 PM EST Office Visit [place] [address] Dayanara Grover MD [facility] [place] [address] documented as of this encounter Visit Diagnoses Not on filedocumented in this encounter Care Teams Magazine Supervisor Relationship Specialty Start Date End Date Charles Romero PA [facility] [place] [address] PCP - General Internal Medicine 09/18/24 documented as of this encounter
--- OUTSIDE RECORDS SUMMARY | 2024-10-31 16:54 | XMS_ITS | Encounter Summary ---
Author Organization [facility]ly [facility] Address [facility] [place] [address] Care Team Providers Care Otr [employer] Truck Driver Name Role Phone Charles Romero Primary Care Provider + Encounter Details Date Type Department Care Team (Late st Contact Info) Description 10/20/2024 Notes [place] [phone] Hayley Torres MD [facility] [place] [address] Social History Tobacco Use Types Packs/Day Years Used Date Smoking Tobacco: Every Day Cigarettes 1 25 Started: 12/28/1986; Last attempted to quit: 12/28/2011 Smokeless Tobacco: Never Comments:Quit 09/2024 Alcohol Use Standard Drinks/Week Comments No 0 (1 standard drink = 0.6 oz pur e alcohol) [place] Utilities Answer Date Recorded In the past 12 months has [employer], gas, oil, or water company threatened [...] in a halfway (including now)? No 09/27/2024 DH IPV Inpatient [...] PM EST Office [place] [address] Isabela Hayward, COPING MACHINE OPERATOR [facility] [place] [address] 11/10/2024 10:00 AM EST Office [place] [phone] Dai Whitman APRN 11/21/2024 2:15 PM EST Office [place] [phone] Dayanara Grover MD [facility] [place] [address] documented as of this encounter Visit Diagnoses Not on filedocumented in this encounter Care Teams [employer] Truck Driver Relationship Specialty Start Date End Date Charles Romero PA [facility] [place] [address] PCP - General Internal Medicine 09/18/24 documented as of this encounter
--- OUTSIDE RECORDS SUMMARY | 2024-10-31 16:54 | XMS_ITS | Encounter Summary ---
Author Organization [facility] [place] [address] Care Team Providers Care Fish Warden Name Role Phone Charles Romero Primary Care Provider + Encounter Details Date Type Department Care Team (Latest Contact Info) Description 10/19/2024 11:30 AM EST Clinical Support [place] [phone] Vascular graft infection, initial encounter [T82.7XXA] Social History Tobacco Use Types Packs/Day Years Used Date Smoking Tobacco: Every Day Cigarettes 1 25 Started: 12/28/1986; Last attempted to quit: 12/28/2011 Smokeless Tobacco: Never Comments:Quit 09/2024 Alcohol Use Standard Drinks/Week Comments No 0 (1 standard drink = 0.6 oz pur e alcohol) [facility] Utilities Answer Date Recorded In the past 12 months has e [employer], gas, oil, or water [employer] threatened to shut off services in your [...] PM EST Office Visit [place] [phone] Isabela Hayward, PHOTOGRAPHER STILL [facility] [place] [address] 11/10/2024 10:00 AM EST Office Visit [place] [phone] Dai Whitman APRN 11/21/2024 2:15 PM EST Office Visit [place] [phone] Dayanara Grover MD [facility] [place] [address] documented as of this encounter Visit Diagnoses Diagnosis Vascular graft infection, initial encounter [T82.7XXA] documented in this encounter Care Teams Fish Warden Relationship Specialty Start Date End Date Charles Romero PA [facility] [place] [address] PCP - General Internal Medicine 09/18/24 documented as of this encounter
--- OUTSIDE RECORDS SUMMARY | 2024-10-31 16:54 | XMS_ITS | Encounter Summary ---
Author Organization [facility] Address [facility] [place] [address] Care Team Providers Care Bicycle Service Technician Name Role Phone Charles Romero Primary Care Provider + Encounter Details Date Type Department Care Team (Late st Contact Info) Description 10/20/2024 Telephone [place] [address] Isabela Hayward APRN [facility] [place] [address] Social History Tobacco Use Types Packs/Day Years [...] takes 2 hours just to get to [facility]. Caller Name (If other than patient): Cony Patient Callback number: [phone]. Best time you are available: Any Route Per Clinic Coverage Page documented in this encounter Plan of Treatment Upcoming Encounters Date Type Department Care Team (Late st Contact Info) Description 11/09/2024 1:30 PM EST Office Visit [place] [phone] Isabela Hayward, PATIENT FINANCIAL REP [facility] [place] [address] 11/10/2024 10:00 AM EST Office Visit Vascular Surgery at [place] [phone] Dai Whitman APRN 11/21/2024 2:15 PM EST Office Visit Endocrinology at [place] [phone] Dayanara Grover MD [facility] [place] [address] documented as of this encounter Visit Diagnoses Not on filedocumented in this encounter Care Teams Bicycle Service Technician Relationship Specialty Start Date End Date Charles Romreo [place] [address] PCP - General Internal Medicine 09/18/24 documented as of this encounter
--- OUTSIDE RECORDS SUMMARY | 2024-10-31 16:54 | XMS_ITS | Encounter Summary ---
Author Organization [facility] Address [facility] [place] [address] Care Team Providers Care Bandage Maker Name Role Phone Charles Romero Primary Care Provider + Encounter Details Date Type Department Care Team (Late st Contact Info) Description 10/20/2024 External Results [place] [phone] Shannon Tyler, RETAIL GREETING CARD MERCHANDISER MRSA bacteremia Social History Tobacco Use Types Packs/Day Years Used Date Smoking Tobacco: Every Day Cigarettes 1 25 Started: 12/28/1986; Last attempted to quit: 12/28/2011 Smokeless Tobacco: Never Comments:Quit 09/2024 Alcohol Use Standard Drinks/Week Comments No 0 (1 standard drink = 0.6 oz pur e alcohol) [facility] Utilities Answer Date Recorded In the past 12 months has [employer], gas, oil, or water [employer] threatened to shut off services in your [...] any time in the past 12 m [facility], were you homeless or living [...] PM EST Office [place] [phone] Isabela Hayward APRN [facility] INFECTI[place] [address] 11/10/2024 10:00 AM EST Office [place] [phone] Dai Whitman APRN 11/21/2024 2:15 PM EST Office [place] [phone] Dayanara Grover MD [facility] [place]IN[place] [address] documented as of this encounter Procedures Procedure Name Priority Date/Time Associated Diagnosis Comments CBC (WITH DIFF) Routine 10/16/2024 MRSA bacteremia CK Routine 10/16/2024 MRSA bacteremia COMPREHENSIVE METABOLIC PANEL Routine 10/16/2024 MRSA bacteremia documented in this encounter Results * (ABNORMAL) CBC (with Diff) (10/16/2024) WBC - External 10.99(H) [facility] RBC - External 3.71(L) [facility] Hemoglobin - External 10.8(L) [facility] Hematocrit - External 33.8(L) [facility] MCV - External 91 [facility] MCH - External 29.1 [facility] MCHC - External 32.0 [facility] RDWCV - External 14.2(H) [facility] Platelets - External 512(H) [facility] MPV - External 9.8 [facility] NRBC % - External 0.0 [facility] [...] 10/16/2024 Amaya Hernandez MD HEMATOLOGY ORDERABLE [place] [address] [facility] [address] [place] [phone] * CK (10/16/2024) CK, Total - External 39 [facility] Blood VENOUS BLOOD SPECIMEN / Unknown 10/16/2024 Amaya Hernandez MD CHEMISTRY ORDERABLES Performing Organization Address City/[facility]/ZIP Co de Phone Number [address] [place], [place] [address] [phone] * (ABNORMAL) Comprehensive metabolic panel Non-fasting (10/16/2024) Glucose Lvl - External 124(H) [facility] Blood Urea Nitrogen - External 17 [facility] Creatinine - External 0.9 [facility] EGFR - External 104.05 [facility] Anion Gap - External 11.6(H) [facility] Sodium - External 141 [facility] Potassium - External 4.3 [facility] Chloride - External 103 [facility] CO2 - External 26.4 [facility] Calcium - External 9.0 [facility] [...] Unknown 10/16/2024 Amaya Hernandez MD CHEMISTRY ORDERABLES [address] [place], [place] [address] [phone] documented in this encounter Visit Diagnoses Diagnosis MRSA bacteremia Bacteremia documented in this encounter Care Teams Bandage Maker Relationship Specialty Start Date End Date Charles Romero [place] [address] PCP - General Internal Medicine 09/18/24 documented as of this encounter
--- OUTSIDE RECORDS SUMMARY | 2024-10-31 16:54 | XMS_ITS | Encounter Summary ---
Author Organization [facility] Address [facility] [place] [address] Care Team Providers Care Farm Mechanic Apprentice Name Role Phone Charles Romero Primary Care Provider + Encounter Details Date Type Department Care Team (Late st Contact Info) Description 10/19/2024 11:50 AM EST Office Visit [place] [address] Isabela Hayward APRN [facility] [place] [address] Bacteremia; Vascular graft infection, subsequent encounter; MRSA infection (methicillin-resistant Staphylococcus aureus); PICC line infiltration, initial encounter; 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 Use as instructed Indications: [id number] each 1 FreeStyle Lancets 28 gauge Misc [...] review of medical records prior to thevisit, [id number] evaluation and counseling, clinical decision making, coordination of care and documentation. Isabela Hayward APRN, Infectious Disease 10/19/2024 11:45 AM documented in this encounter Plan of Treatment Upcoming Encounters Date Type Department Care Team (Late st Contact Info) Description 11/09/2024 1:30 PM EST Office Visit [place] [address] Isabela Hayward APRN [facility] [place] [address] 11/10/2024 10:00 AM EST Office Visit [place] [address] Dai Whitman APRN 11/21/2024 2:15 PM EST Office [place] [address] Dayanara Grover MD [facility] DR [place] [address] documented as of this encounter Visit Diagnoses Diagnosis Bacteremia Vascular graft infection, subsequent encounter MRSA infection (methicillin-resistant Staphylococcus aureus) Methicillin resistant Staphylococcus aureus in conditions classified elsewhere and of unspecified site PICC line infiltration, initial encounter nursing home current use of antibiotics Encounter for long-term (current) use of antibiotics documented in this encounter Care Teams Farm Mechanic Apprentice Relationship Specialty Start Date End Date Charles Rom[place] [place] [address] PCP - General Internal Medicine 09/18/24 documented as of this encounter
--- OUTSIDE RECORDS SUMMARY | 2024-10-31 16:54 | XMS_ITS | Encounter Summary ---
Author Organization [facility] [address] Care Team Providers Care Shrimp Cleaner Name Role Phone Charles Romero Primary Care [...] drink = 0.6 oz pur e alcohol) [facility] Utilities Answer Date Recorded In [...] PM EST Office [place] [address] Isabela Hayward, PHYSICIAN ASSISTANT SURGERY [facility] [place] [address] 11/10/2024 10:00 AM EST Office [place] [address] Dai Whitman APRN 11/21/2024 2:15 PM EST Office [place] [address] Dayanara Grover MD [facility] [place] [address] documented as of this encounter Visit Diagnoses Not on filedocumented in this encounter Care Teams Shrimp Cleaner Relationship Specialty Start Date End Date Charles Romero PA [facility] [place] [address] PCP - General Internal Medicine 09/18/24 documented as of this encounter
--- OUTSIDE RECORDS SUMMARY | 2024-10-31 16:54 | XMS_ITS | Encounter Summary ---
Author Organization [facility] [place] [address] Care Team Providers Care Toy Consultant Name Role Phone Charles Romero Primary Care Provider + Encounter Details Date Type Department Care Team (Late st Contact Info) Description 10/19/2024 10:00 AM EST Office [place] [address] Dai Whitman APRN Critical limb ischemia of [...] drink = 0.6 oz pur e alcohol) [facility] Utilities Answer Date Recorded In [...] this encounter Progress Notes * Dai Whitman, GIRL FRIDAY - 10/19/2024 10:00 AM EST Images from the original note were not included. Vascular Follow-Up Reason for Visit: hospital check HPI: Lux Llanos Zack Winter is a 49 y.o. 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 Irrigation of left groin and calf incision sites ([place]) 09/28/24: LEFT great saphenous vein harvest, Removal of left common femoral and below knee popliteal artery PFTE graft willard and common femoral bovine pericardial patch, Vein patch angioplasty of LEFTcommon femoral artery and below-knee popliteal artery, Rotational sartorius muscle flap placement over LEFT femoral artery, Excisional debridement, washout, and LEFT groin wound VAC placement ([place]) 09/29/24: EXPLORATION W\O SURGICAL REPAIR, Left FEMORAL [...] 3 times daily. Use as instructed Indications: [id number] each 1 FreeStyle Lancets 28 gauge Misc [...] 2nd toe amputation who was transferred from [facility] given concern for infected left fem-BK poplitealPTFE bypass. HE was admitted from [facility] for concern for infection and underwent [...] Squash Vitamin C Strawberries Bok Ryan Broccoli [place] sprouts Cabbage Kiwi Zinc Beans Eggs Fish [...] PM EST Office [place] [address] Isabela Hayward, GIRL FRIDAY [facility] [place] [address] 11/10/2024 10:00 AM EST Office [place] [phone] Dai Whitman APRN 11/21/2024 2:15 PM EST Office [place] [phone] Dayanara Grover MD [facility] [place] [address] documented as of this encounter Visit Diagnoses Diagnosis Critical limb ischemia of left lower extremity Infection of vascular bypass graft, sequela documented in this encounter Care Teams Toy Consultant Relationship Specialty Start Date End Date Charles Romero PA [facility] [place] [address] PCP - General Internal Medicine 09/18/24 documented as of this encounter
--- OUTSIDE RECORDS SUMMARY | 2024-10-31 16:54 | XMS_ITS | Encounter Summary ---
Author Organization [facility] Address [facility] [place] [address] Care Team Providers Care Inbound Customer Service Agent Name Role Phone Charles Romero Primary Care Provider + Encounter Details Date Type Department Care Team (Late st Contact Info) Description 10/19/2024 Orders Only [place] [address] Isabela Hayward APRN [facility] [place] [address] Vascular graft infection, initial encounter Social History Tobacco Use Types Packs/Day Years Used Date Smoking Tobacco: Every Day Cigarettes 1 25 Started: 12/28/1986; Last attempted to quit: 12/28/2011 Smokeless Tobacco: Never Comments:Quit 09/2024 Alcohol Use Standard Drinks/Week Comments No 0 (1 standard drink = 0.6 oz pur e alcohol) [facility] Utilities Answer Date Recorded In the past 12 months has [employer], gas, oil, or water company threatened [...] any time in the past 12 m [facility], were you homeless or living in [...] PM EST Office Visit [place] [phone] Isabela Hayward, RESHMA [facility] DR [place] [address] 11/10/2024 10:00 AM EST Office Visit [place] [address] Dai Whitman APRN 11/21/2024 2:15 PM EST Office Visit [place] [phone] Dayanara Grover MD [facility] ENDOCRINOLOGY DEPT [place] [phone] Scheduled Orders Name Type Priority Associated Diagnoses Orde r Schedule Place PICC Line: Contact Vascular Access Page [phone] Procedures Routine Vascular graft infection, initial encounter Expected: 10/23/2024, Expires: 11/19/2024 documented as of this encounter Results * XR PICC Placement Over 5 Years with Imaging Guidance (IV Team) (10/23/2024 1:40 PM EST) [employer] Signature WORKSTATION ID [id number] [facility] Anatomical Region Laterality Modality N/A Radio Fluoroscop [...] who have questions please contact the health acute care surgeon that requested your imaging first. ? Procedure Note Lizebt Ramirez MD - 10/23/2024 EXAMINATION: XR PICC [...] patients who have questions please contactthe health acute care surgeon that requested your imaging first. Isabela Hayward APRN IMG FLUORO ORDER RANDELL documented in this encounter Visit Diagnoses Diagnosis Vascular graft infection, initial encounter Vascular graft infection, initial encounter documented in this encounter Care Teams Inbound Customer Service Agent Relationship Specialty Start Date End Date Charles Romero PA [facility] [place] [address] PCP - General Internal Medicine 09/18/24 documented as of this encounter
--- OUTSIDE RECORDS SUMMARY | 2024-10-31 16:55 | XMS_ITS | Encounter Summary ---
Author Organization [facility] [place] [address] Care Team Providers Care Advanced Nursing Professor Name Role Phone Charles Romero Primary Care Provider + Reason for Referral * Consultation (Routine) - Authorized Specialty Diagnoses / Procedures Referred By Contac t Referred To Contact Infectious Diseases Diagnoses MRSA bacteremia Amaya Hernandez MD [facility] [place] [address] Amaya Hernandez MD [facility] [place] [address] Referral ID Status Reason Start Date Expiration Date Visits Requested Visits Authorized [id number] Authorized Assume Subset of Care 10/09/2024 10/09/2025 1 1 * Home Health Care (Routine) - Authorized Specialty Diagnoses / Procedures Referred By Contac t Referred To Contact Diagnoses Vascular graft infection, initial encounter María Carranza APRN [facility] [place] [address] [facility] [place] [address] Referral ID Status Reason Start Date Expiration Date Visits Requested Visits Authorized [id number] Authorized Consult, Test & Treat 10/10/2024 04/08/2025 999 999 Reason for Visit * Auth/Cert (Routine) Specialty Diagnoses / Procedures Referred By Contac t Referred To Contact Diagnoses Vascular graft infection, initial encounter Sepsis [A41.9] T82.7XXA Procedures EMERGENCY IPI Angel Gonsalez MD [facility] [place] [address] [facility] Referral ID Status Reason Start Date Expiration Date Visits Re quested Visits Authorized [id number] 1 1 Encounter Details Date Type Department Care Team (Latest Contact Info) Description 09/26/2024 2:08 PM EST - 10/10/2024 5:11 PM EST Hospital Encounter Surgical Unit Level 4 [place] [id number] Marko Dickson MD [facility] [place] [address] Hayley Torres MD [facility] [place] [address] Vascular graft infection, initial encounter; PAD (peripheral [...] 0.6 oz pur e alcohol) [facility] Utilities Answer Date Recorded [...] Operations/Major Procedures: 09/26/24: Explant of infected LEFT IT TELECOM TECHNICIAN to below-knee popliteal artery PTFE bypass graft [...] Meeks MD - Resident - Assisting * Taot Aguirre MD - Fellow - Assisting 10/04/24: [...] 2nd toe amputation who was transferred from [facility] given concern for infected left [...] pericardial patch and PTFE willard over the IT TELECOM TECHNICIAN was unincorporated. - Resection of prior femoral [...] 2 tablespoons of dried fruit. Milk and ii-flrik-fxurz yogurt have 15 grams of carbs in a serving. A serving is 1 cup of milk or 3/4 cup (6 oz) of fe-wkfvt-rlbim yogurt. Starchy vegetables have 15 grams of carbs in a serving. A serving is ?? cup of mashed potatoes or sweet potato; 1 cup winter squash; ?? of a small baked potato; ?? cup of cooked beans; or ?? cup cooked corn or green peas. Learn how much carbs to eat each day and at each meal. A dietitian or certified home health aide can teach you how to keep [...] magnesium sulfate, Klor ConM noted Monitor Weight Geovnana Dixon Jr. was scheduled for a f/u nutrition evaluation. Slurry Mixer met pt at bedside. Pt sharedthat his [...] Based on current findings- home (sister & cxfrdky-kj-kgw's home) Consult Recommendations: No other consults recommended [...] Loss: None Karolyn Hudson MD Vascular Surgery, 5288 10/09/24 Important Studies and Lab Data: Labs: [...] 05/29/2024, no significant changes. Procedure Limited - 63453. Doppler - 70198. Color Doppler - 32793. Suboptimal quality. This study is limited because [...] on series 3, image 8 and 641, 732, 076, 382. No other rim-enhancing fluid collection is seen. [...] wedged between the vastus medialis and adductor [place] muscle. This tracks into the popliteal fossa [...] Isabela Hayward APRN Infectious Disease at [facility] Arrive at: Home [phone] To view instructions for your video visit, click here, or visit this website: [email or web address] If you have not previously downloaded the [facility] patient portal software, [employer], please do so by clicking one of the links below or searching in your device's lobito store. [employer] devices 11/09/2024 1:30 PM Isabela Hayward APRN Infectious Disease at [facility] Arrive at: Business Office Assistant Area [phone] 11/21/2024 2:15 PM Dayanara Grover MD Endocrinology at [facility] Arrive at: Business Office Assistant Area 3A [phone] Future Orders Complete By Expires CBC (with Diff) [IJP311 Custom] 10/17/2024 12/11/2024 Process Instructions: INCLUDES: WBC, RBC, Hgb, Hct, Platelets, RBC Indices and Differential Scheduling Instructions: Comments: Questions: OPAT: Order / Recommendation for Post Discharge IV Antibiotic Management [QQR428 CPT(R)] As directed Process Instructions: If no progress note charted, please enter Clinical details in comments. Scheduling Instructions: Comments: - If this order was signed greater than 72 hours prior to [facility] discharge, please call to confirm the accuracy of this order. Please Fax all results to: [facility] Program Infectious Disease Section [facility], [facility], [place] [address] FAX: - After hours, please contact the Infectious Disease Physician news correspondent at . - Line care instructions - see flush/heparin orders. Facilities may follow organizational policies/practices regarding heparin. - jail for medication administration/supervisor inspection room and catheter care/maintenance authorized. - CVC/PICC Dressing Change weekly and PRN Please use CHG or Bio Patch RN: Please care for PICC line including dressing changes weekly and prn. Please draw labs every Wednesday and PRN and fax results to [facility] at [phone]. Please draw labs off PICC line. Please see [facility] for lab draw details. Please RN visit for IV ABX teaching and ongoing assessment. Retirement for Medication Administration/Hookup and catheter care/maintenance: - Teach Patient/Caregiver goals/self-monitoring/therapy administration to independence per the Nursing Care Plan. - jail visit frequency; initial, weekly and 2 PRN [...] Amaya Hernandez MD Referral for Outpatient Antibiotics [KZS1101 CPT(R)] As directed Process Instructions: Scheduling Instructions: [...] Jr. for admission to Home Health. [address] [facility] [address] Phone Number: [phone] (home) Date of : 1975 Inpatient DOCUMENTATION FOR VNA SERVICES (INCLUDING THOSE PATIENTS WITH MEDICARE COVERAGE REQUIRING HOME VNA SERVICES AND/OR HOSPICE SERVICES) PATIENT'S LOCATION: Geovanna Dixon Jr. [address] [facility] [address] [phone] (home) Cell: Telephone Information: Tire Care Manager's Name: Geovanna In discussion with the attending physician, it is certified that this patient is under their care and that they, or a Nurse Practitioner, Clinical Nurse specialist or Physician Phone Manager who is working directly with them, [...] for managing ADLs. HOME HEALTH CARE AGENCY: [facility]. [address] [place] [address] START OF CARE: within 24-48 hours of discharge Patient has Medicare Please note that any additional orders needs or changes will need to be obtained from this patient's PCP: JUSTIN Roberson [address] [facility] [address] . All VNA agencies which cover the area of patient's residence have been reviewed, either verbally or in writing, andpatient/family have chosen the home health care agency noted. Questions: Disciplines Requested: Nursing Physical Therapy Occupational Therapy Recurring Lab Work Interval Expires CBC (with Diff) [AHK344 Custom] Once a week until 12/10/2024 12/10/2024 [...] For any problems or questions please call [phone] For issues on weeknights after 5pm and weekends please call [phone] and ask for the Vascular Fellow news correspondent. Discharge Medications: Your Medications New Medications Dose [...] - See Instructions). FLUSH PROTOCOL WITH MEDICATIONS ([facility]): Before med infusion: flush with NS [...] get this completed at 3L at [facility] prior to your scheduled appointment. Stop atorvastatin [...] For any problems or questions please call [phone] For issues on weeknights after 5pm and weekends please call [phone] and ask for the Vascular Fellow news correspondent. documented in this encounter Discharge Instructions * [...] 2 tablespoons of dried fruit. Milk and wb-kefdb-twajo yogurt have 15 grams of carbs in a serving. A serving is 1 cup of milk or 3/4 cup (6 oz) of ix-midxg-uxfxm yogurt. Starchy vegetables have 15 grams of carbs in a serving. A serving is ?? cup of mashed potatoes or sweet potato; 1 cup winter squash; ?? of a small baked potato; ?? cup of cooked beans; or ?? cup cooked corn or green peas. Learn how much carbs to eat each day and at each meal. A dietitian or certified home health aide can teach you how to keep [...] get this completed at 3L at [facility] prior to your scheduled appointment. Stop atorvastatin [...] For any problems or questions please call [phone] For issues on weeknights after 5pm and weekends please call [phone] and ask for the Vascular Fellow news correspondent. documented in this encounter Medications at Time [...] to contact. Reviewed roles and responsibilities of WATER SUPERINTENDENT and infusion vendor. Contact information for ID and Vascular team/clinic, WATER SUPERINTENDENT and infusion vendor given to pt. Discussed f/u appointments in ID 5C clinic, telephone and tele health. Pt verbalized understanding. All questions answered. IV & PO ABX Medications: Daptomycin 700mg IV daily Start/anticipated end date: 10/10/24-11/10/24 WATER SUPERINTENDENT: Mathis Infusion vendor: [facility] IV Access: 4 Fr. single lumen Bard [...] 2 tablespoons of dried fruit. Milk and fc-wggjg-zufge yogurt have 15 grams of carbs in a serving. A serving is 1 cup of milk or 3/4 cup (6 oz) of fq-rpyri-thsqz yogurt. Starchy vegetables have 15 grams of carbs in a serving. A serving is ?? cup of mashed potatoes or sweet potato; 1 cup winter squash; ?? of a small baked potato; ?? cup of cooked beans; or ?? cup cooked corn or green peas. Learn how much carbs to eat each day and at each meal. A dietitian or certified home health aide can teach you how to keep [...] this time. OT to complete orders. Pager: [phone] Fabián Burrows OT 10/09/2024 Occupational Therapy Rehabilitation [...] 2nd toe amputation who was transferred from [facility], 09/26/24 given concern for infected left fem-BK popliteal PTFE bypass. He is now s/p an explant of an infected left femoral-below knee popliteal artery bypass graft (09/26), I/D groin abscess (09/27), L GSV harvest, vein patch angioplasty, L IT TELECOM TECHNICIAN and BK pop w/ sartorius flap L fem, I/D, 09/29 L sartorius flap revision, vac change. 10/03/24 NPO at [facility] for OR wound exploration. Wound [...] He mentions he'll stay with sister and zhttxsf-kp-czj upon DC. Pt resting in bed upon [...] up with R and down with L, fbij-mk-jble. Balance: Sitting: NORMAL- EOB unsupported good postural [...] Based on current findings- home (sister & osdqbpq-by-jtv's home) Consult Recommendations: No other consults recommended [...] 15 (TE-F) minutes TERRY JIMENEZ PT Pager: [phone] Physical Therapy Inpatient Rehabilitation Department * María [...] 2nd toe amputation who was transferred from [facility] given concern for infected left [...] 1 week ago. He presented to [facility] on 09/26 and went to the OR [...] Procedure Component Value - Date/Time Blood culture [[id number]] (Abnormal) (Susceptibility) Collected: 09/26/24 1422 Lab Status: Edited Result - FINAL Specimen: Blood, Venous Updated: 10/07/24 0740 Blood Culture Methicillin Resistant Staphylococcus aureus Comment: detected by PCR Isolate saved. If future testing is required, contact the Microbiology Industrial Technician. Gram Stain Aerobic Bottle: Gram positive cocci in clusters Susceptibility Methicillin Resistant Staphylococcus aureus MINIMUM INHIBITORY CONCENTRATION VITEK 2 METHOD Clindamycin Resistant Daptomycin Susceptible Gentamicin Susceptible [1] Linezolid Susceptible Oxacillin Resistant Trimethoprim/Sulfa Susceptible Vancomycin Susceptible [1] Gentamicin is not appropriate for monotherapy for gram-positive infections. AFB culture [[id number]] Collected: 09/27/24 1654 Lab Status: Preliminary result Specimen: Tissue from Thigh, Left Updated: 10/05/24 1201 Acid Fast Bacilli Culture No acid fast bacilli isolated at 1 week. Acid Fast Stain No acid fast bacilli seen Blood culture [[id number]] Collected: 09/29/242123 Lab Status: Final result Specimen: Blood, Venous Updated: 10/04/24 2301 Blood Culture No growth at 120 hours Blood culture [[id number]] Collected: 09/29/242123 Lab Status: Final result Specimen: Blood, Venous Updated: 10/04/24 2301 Blood Culture No growth at 120 hours AFB culture [[id number]] Collected: 09/26/24 1702 Lab Status: Preliminary result Specimen: Abscess from Knee, Left Updated: 10/04/24 1201 Acid Fast Bacilli Culture No acid fast bacilli isolated at 1 week. Acid Fast Stain No acid fast bacilli seen Blood culture [[id number]] Collected: 09/28/24 1749 Lab Status: Final result [...] 2nd toe amputation who was transferred from [facility] given concern for infected left fem-BK popliteal PTFE bypass. 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 10/09/24: Progressing well post surgically. Will pull medial thigh drain today, retain sartorius flap drain along with wound vac x 3 sponges ([facility] has approved for home vac) and WTD [...] PICC dressing change completed as per [facility] protocol. Positive pressure displacement connector (Max Plus) [...] 2nd toe amputation who was transferred from [facility] given concern for infected left [...] 1 week ago. He presented to [facility] on 09/26 and went to the OR [...] Procedure Component Value - Date/Time Blood culture [[id number]] (Abnormal) (Susceptibility) Collected: 09/26/24 1422 Lab Status: Edited Result - FINAL Specimen: Blood, Venous Updated: 10/07/24 0740 Blood Culture Methicillin Resistant Staphylococcus aureus Comment: detected by PCR Isolate saved. If future testing is required, contact the Microbiology Industrial Technician. Gram Stain Aerobic Bottle: Gram positive cocci in clusters Susceptibility Methicillin Resistant Staphylococcus aureus MINIMUM INHIBITORY CONCENTRATION VITEK 2 METHOD Clindamycin Resistant Daptomycin Susceptible Gentamicin Susceptible [1] Linezolid Susceptible Oxacillin Resistant Trimethoprim/Sulfa Susceptible Vancomycin Susceptible [1] Gentamicin is not appropriate for monotherapy for gram-positive infections. AFB culture [[id number]] Collected: 09/27/241653 Lab Status: Preliminary result Specimen: Tissue from Thigh, Left Updated: 10/05/24 1201 Acid Fast Bacilli Culture No acid fast bacilli isolated at 1 week. Acid Fast Stain No acid fast bacilli seen Blood culture [[id number]] Collected: 09/29/242123 Lab Status: Final result Specimen: Blood, Venous Updated: 10/04/24 2301 Blood Culture No growth at 120 hours Blood culture [[id number]] Collected: 09/29/242123 Lab Status: Final result Specimen: Blood, Venous Updated: 10/04/24 2301 Blood Culture No growth at 120 hours AFB culture [[id number]] Collected: 09/26/24 170 Lab Status: Preliminary result Specimen: Abscess from Knee, Left Updated: 10/04/24 1201 Acid Fast Bacilli Culture No acid fast bacilli isolated at 1 week. Acid Fast Stain No acid fast bacilli seen Blood culture [[id number]] Collected: 09/28/24 1749 Lab Status: Final result Specimen: Blood, Venous Updated: 10/03/24 1901 Blood Culture No growth at 120 hours Blood culture [[id number]] (Abnormal) Collected: 09/27/242132 Lab Status: Final result Specimen: Blood, Venous Updated: 10/02/24 0804 Blood Culture Methicillin Resistant Staphylococcus aureus Comment: Susceptibilities previously reported. Gram Stain Aerobic Bottle: Gram positive cocci in clusters Tissue Culture, Aerobic & Anaerobic [[id number]] Collected: 09/27/241653 Lab Status: Final result Specimen: Tissue from Thigh, Left Updated: 10/01/24 1554 Narrative: The following orders were created for panel order Tissue Culture, Aerobic & Anaerobic. Procedure Abnormality Status --------- ------ Tissue Culture, Aerobic ...[[id number]] Anaerobic Culture[[id number]] Final result Please view results for these tests on the individual orders. Anaerobic Culture [[id number]] Collected: 09/27/241653 Lab Status: Final result Specimen: Tissue from Thigh, Left Updated: 10/01/24 155 Anaerobic Culture No anaerobic organisms isolated Tissue Culture, Aerobic Only [[id number]] (Abnormal) (Susceptibility) Collected: 09/27/24 9206 Lab Status: Final result Specimen: Tissue from [...] 2nd toe amputation who was transferred from [facility] given concern for infected left fem-BK popliteal PTFE bypass. He is now s/p an explantof an infected left femoral-below knee popliteal artery bypass graft (09/26), I/D groin abscess (), L GSV harvest, vein patch angioplasty, L IT TELECOM TECHNICIAN and BK pop w/ sartorius flap L [...] Antiplatelet: ASA 81mg daily Vibha C Marcelino, TANK CAR INSPECTOR 10/08/2024 Pager: [phone] * Vibha Benson APRN - 10/07/2024 8:52 AM EST Images from the original note were not included. Vascular Surgery Progress Note Geovanna Dixon Jr. is a 49 y.o. 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 He presented to [facility] on 09/26 and went to the OR [...] Procedure Component Value - Date/Time Blood culture [[id number]] (Abnormal) (Susceptibility) Collected: 09/26/24 1422 Lab Status: Edited Result - FINAL Specimen: Blood, Venous Updated: 10/07/24 0740 Blood Culture Methicillin Resistant Staphylococcus aureus Comment: detected by PCR Isolate saved. If future testing is required, contact the Microbiology Industrial Technician. Gram Stain Aerobic Bottle: Gram positive cocci in clusters Susceptibility Methicillin Resistant Staphylococcus aureus MINIMUM INHIBITORY CONCENTRATION VITEK 2 METHOD Clindamycin Resistant Daptomycin Susceptible Gentamicin Susceptible [1] Linezolid Susceptible Oxacillin Resistant Trimethoprim/Sulfa Susceptible Vancomycin Susceptible [1] Gentamicin is not appropriate for monotherapy for gram-positive infections. AFB culture [[id number]] Collected: 09/27/24 1654 Lab Status: Preliminary result Specimen: Tissue from Thigh, Left Updated: 10/05/24 1201 Acid Fast Bacilli Culture No acid fast bacilli isolated at 1 week. Acid Fast Stain No acid fast bacilli seen Blood culture [[id number]] Collected: 09/29/242123 Lab Status: Final result Specimen: Blood, Venous Updated: 10/04/24 2301 Blood Culture No growth at 120 hours Blood culture [[id number]] Collected: 09/29/242123 Lab Status: Final result Specimen: Blood, Venous Updated: 10/04/24 2301 Blood Culture No growth at 120 hours AFB culture [[id number]] Collected: 09/26/24 1702 Lab Status: Preliminary result Specimen: Abscess from Knee, Left Updated: 10/04/24 1201 Acid Fast Bacilli Culture No acid fast bacilli isolated at 1 week. Acid Fast Stain No acid fast bacilli seen Blood culture [[id number]] Collected: 09/28/24 1749 Lab Status: Final result Specimen: Blood, Venous Updated: 10/03/24 1901 Blood Culture No growth at 120 hours Blood culture [[id number]] (Abnormal) Collected: 09/27/242132 Lab Status: Final result Specimen: Blood, Venous Updated: 10/02/24 0804 Blood Culture Methicillin Resistant Staphylococcus aureus Comment: Susceptibilities previously reported. Gram Stain Aerobic Bottle: Gram positive cocci in clusters Tissue Culture, Aerobic & Anaerobic [[id number]] Collected: 09/27/241653 Lab Status: Final result Specimen: Tissue from Thigh, Left Updated: 10/01/24 1554 Narrative: The following orders were created for panel order Tissue Culture, Aerobic & Anaerobic. Procedure Abnormality Status --------- ------ Tissue Culture, Aerobic ...[[id number]] Anaerobic Culture[[id number]] Final result Please view results for these tests on the individual orders. Anaerobic Culture [[id number]] Collected: 09/27/241653 Lab Status: Final result Specimen: Tissue from Thigh, Left Updated: 10/01/24 1554 Anaerobic Culture No anaerobic organisms isolated Tissue Culture, Aerobic Only [[id number]] (Abnormal) (Susceptibility) Collected: 09/27/241653 Lab Status: Final [...] is considered susceptible to doxycycline. Blood culture [[id number]] (Abnormal) Collected: 09/26/24 1845 Lab Status: Final result Specimen: Blood, Venous Updated: 10/01/24 0658 Blood Culture Methicillin Resistant Staphylococcus aureus Comment: isolated. Susceptibilities previously reported. Gram Stain Aerobic Bottle: Gram positive cocci in clusters Abscess/Wound Aspirate Culture, Aerobic & Anaerobic [[id number]] (Abnormal) Collected: 09/26/24 165 Lab Status: Final result Specimen: Abscess from Groin, Left Updated: 09/30/24 1551 Narrative: The following orders were created for panel order Abscess/Wound Aspirate Culture, Aerobic & Anaerobic. Procedure Abnormality Status --------- ------ Abscess/Wound Aspirate C...[[id number]] Abnormal Final result Anaerobic Culture[[id number]] Final result Please view results for these tests on the individual orders. Anaerobic Culture [[id number]] Collected: 09/26/24 165 Lab Status: Final result Specimen: Abscess from Groin, Left Updated: 09/30/24 1551 Anaerobic Culture No anaerobic organisms isolated Abscess/Wound Aspirate Culture, Aerobic & Anaerobic [[id number]] (Abnormal) Collected: 09/26/24 170 Lab Status: Final result Specimen: Abscess from Knee, Left Updated: 09/30/24 1551 Narrative: The following orders were created for panel order Abscess/Wound Aspirate Culture, Aerobic & Anaerobic. Procedure Abnormality Status --------- ------ Abscess/Wound Aspirate C...[[id number]] Abnormal Final result Anaerobic Culture[[id number]] Final result Please view results for these tests on the individual orders. Anaerobic Culture [[id number]] Collected: 09/26/24 1702 Lab Status: Final result Specimen: Abscess from Knee, Left Updated: 09/30/24 1551 Anaerobic Culture No anaerobic organisms isolated Sonicated Tissue/Implant Culture [[id number]] (Abnormal) Collected: 09/26/24 1716 Lab Status: Final result Specimen: Vascular Graft from Leg, Left Updated: 09/30/24 1349 Sonicated Tissue/Implant Culture Methicillin Resistant Staphylococcus aureus Comment: isolated from broth culture. Susceptibilities previously reported. Abscess/Wound Aspirate Culture, Aerobic Only [[id number]] (Abnormal) (Susceptibility) Collected: 09/26/24 1702 Lab Status: [...] to doxycycline. Abscess/Wound Aspirate Culture, Aerobic Only [[id number]] (Abnormal) (Susceptibility) Collected: 09/26/24 1650 Lab Status: [...] 2nd toe amputation who was transferred from [facility] given concern for infected left fem-BK popliteal PTFE bypass. He is now s/p an explantof an infected left femoral-below knee popliteal artery bypass graft (09/26), I/D groin abscess (), L GSV harvest, vein patch angioplasty, L IT TELECOM TECHNICIAN and BK pop w/ sartorius flap L [...] 81mg daily Vibha Benson APRN 10/07/2024 Pager: [phone] * Jessica Renae, PT - 10/06/2024 3:21 [...] 2nd toe amputation who was transferred from [facility] given concern for infected left [...] 1 week ago. He presented to [facility] on 09/26 and went to the OR [...] Procedure Component Value - Date/Time AFB culture [[id number]] Collected: 09/27/24 165 Lab Status: Preliminary result Specimen: Tissue from Thigh, Left Updated: 10/05/24 1201 Acid Fast Bacilli Culture No acid fast bacilli isolated at 1 week. Acid Fast Stain No acid fast bacilli seen Blood culture [[id number]] Collected: 09/29/242123 Lab Status: Final result Specimen: Blood, Venous Updated: 10/04/24 2301 Blood Culture No growth at 120 hours Blood culture [[id number]] Collected: 09/29/242123 Lab Status: Final result Specimen: Blood, Venous Updated: 10/04/24 2301 Blood Culture No growth at 120 hours AFB culture [[id number]] Collected: 09/26/24 1702 Lab Status: Preliminary result Specimen: Abscess from Knee, Left Updated: 10/04/24 1201 Acid Fast Bacilli Culture No acid fast bacilli isolated at 1 week. Acid Fast Stain No acid fast bacilli seen Blood culture [[id number]] Collected: 09/28/24 1749 Lab Status: Final result Specimen: Blood, Venous Updated: 10/03/24 1901 Blood Culture No growth at 120 hours Blood culture [[id number]] (Abnormal) Collected: 09/27/242132 Lab Status: Final result Specimen: Blood, Venous Updated: 10/02/24 0804 Blood Culture Methicillin Resistant Staphylococcus aureus Comment: Susceptibilities previously reported. Gram Stain Aerobic Bottle: Gram positive cocci in clusters Tissue Culture, Aerobic & Anaerobic [[id number]] Collected: 09/27/241653 Lab Status: Final result Specimen: Tissue from Thigh, Left Updated: 10/01/24 1554 Narrative: The following orders were created for panel order Tissue Culture, Aerobic & Anaerobic. Procedure Abnormality Status --------- ------ Tissue Culture, Aerobic ...[[id number]] Anaerobic Culture[[id number]] Final result Please view results for these tests on the individual orders. Anaerobic Culture [[id number]] Collected: 09/27/241653 Lab Status: Final result Specimen: Tissue from Thigh, Left Updated: 10/01/24 1554 Anaerobic Culture No anaerobic organisms isolated Tissue Culture, Aerobic Only [[id number]] (Abnormal) (Susceptibility) Collected: 09/27/241653 Lab Status: Final [...] is considered susceptible to doxycycline. Blood culture [[id number]] (Abnormal) (Susceptibility) Collected: 09/26/24 1422 Lab Status: Edited Specimen: Blood, Venous Updated: 10/01/24 0658 Blood Culture Methicillin Resistant Staphylococcus aureus Comment: detected by PCR Isolate saved. If future testing is required, contact the Microbiology Industrial Technician. Gram Stain Aerobic Bottle: Gram positive cocci in clusters Susceptibility Methicillin Resistant Staphylococcus aureus VITEK 2 METHOD Clindamycin Resistant Gentamicin Susceptible [1] Linezolid Susceptible Oxacillin Resistant Trimethoprim/Sulfa Susceptible Vancomycin Susceptible [1] Gentamicin is not appropriate for monotherapy for gram-positive infections. Blood culture [[id number]] (Abnormal) Collected: 09/26/24 1845 Lab Status: Final result Specimen: Blood, Venous Updated: 10/01/24 0658 Blood Culture Methicillin Resistant Staphylococcus aureus Comment: isolated. Susceptibilities previously reported. Gram Stain Aerobic Bottle: Gram positive cocci in clusters Abscess/Wound Aspirate Culture, Aerobic & Anaerobic [[id number]] (Abnormal) Collected: 09/26/24 1650 Lab Status: Final result Specimen: Abscess from Groin, Left Updated: 09/30/24 1551 Narrative: The following orders were created for panel order Abscess/Wound Aspirate Culture, Aerobic & Anaerobic. Procedure Abnormality Status --------- ------ Abscess/Wound Aspirate C...[[id number]] Abnormal Final result Anaerobic Culture[[id number]] Final result Please view results for these tests on the individual orders. Anaerobic Culture [[id number]] Collected: 09/26/24 1650 Lab Status: Final result Specimen: Abscess from Groin, Left Updated: 09/30/24 1551 Anaerobic Culture No anaerobic organisms isolated Abscess/Wound Aspirate Culture, Aerobic & Anaerobic [[id number]] (Abnormal) Collected: 09/26/24 1702 Lab Status: Final result Specimen: Abscess from Knee, Left Updated: 09/30/24 1551 Narrative: The following orders were created for panel order Abscess/Wound Aspirate Culture, Aerobic & Anaerobic. Procedure Abnormality Status --------- ------ Abscess/Wound Aspirate C...[[id number]] Abnormal Final result Anaerobic Culture[[id number]] Final result Please view results for these tests on the individual orders. Anaerobic Culture [[id number]] Collected: 09/26/24 1702 Lab Status: Final result Specimen: Abscess from Knee, Left Updated: 09/30/24 1551 Anaerobic Culture No anaerobic organisms isolated Sonicated Tissue/Implant Culture [[id number]] (Abnormal) Collected: 09/26/24 1716 Lab Status: Final result Specimen: Vascular Graft from Leg, Left Updated: 09/30/24 1349 Sonicated Tissue/Implant Culture Methicillin Resistant Staphylococcus aureus Comment: isolated from broth culture. Susceptibilities previously reported. Abscess/Wound Aspirate Culture, Aerobic Only [[id number]] (Abnormal) (Susceptibility) Collected: 09/26/24 1702 Lab Status: [...] to doxycycline. Abscess/Wound Aspirate Culture, Aerobic Only [[id number]] (Abnormal) (Susceptibility) Collected: 09/26/24 1650 Lab Status: [...] 2nd toe amputation who was transferred from [facility] given concern for infected left fem-BK popliteal PTFE bypass. 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 Vascular Surgery Progress Note Geovanna Dixon Jr. is a 49 y.o. 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 He presented to [facility] on 09/26 and went to the OR [...] Procedure Component Value - Date/Time Blood culture [[id number]] Collected: 09/29/242123 Lab Status: Final result Specimen: Blood, Venous Updated: 10/04/24 2301 Blood Culture No growth at 120 hours Blood culture [[id number]] Collected: 09/29/242123 Lab Status: Final result Specimen: Blood, Venous Updated: 10/04/24 2301 Blood Culture No growth at 120 hours AFB culture [[id number]] Collected: 09/26/24 1702 Lab Status: Preliminary result Specimen: Abscess from Knee, Left Updated: 10/04/24 1201 Acid Fast Bacilli Culture No acid fast bacilli isolated at 1 week. Acid Fast Stain No acid fast bacilli seen Blood culture [[id number]] Collected: 09/28/24 1749 Lab Status: Final result Specimen: Blood, Venous Updated: 10/03/24 1901 Blood Culture No growth at 120 hours Blood culture [[id number]] (Abnormal) Collected: 09/27/24 2133 Lab Status: Final result Specimen: Blood, Venous Updated: 10/02/24 0804 Blood Culture Methicillin Resistant Staphylococcus aureus Comment: Susceptibilities previously reported. Gram Stain Aerobic Bottle: Gram positive cocci in clusters Tissue Culture, Aerobic & Anaerobic [[id number]] Collected: 09/27/24 1654 Lab Status: Final result Specimen: Tissue from Thigh, Left Updated: 10/01/24 1554 Narrative: The following orders were created for panel order Tissue Culture, Aerobic & Anaerobic. Procedure Abnormality Status --------- ------ Tissue Culture, Aerobic ...[[id number]] Anaerobic Culture[[id number]] Final result Please view results for these tests on the individual orders. Anaerobic Culture [[id number]] Collected: 09/27/24 165 Lab Status: Final result Specimen: Tissue from Thigh, Left Updated: 10/01/24 1554 Anaerobic Culture No anaerobic organisms isolated Tissue Culture, Aerobic Only [[id number]] (Abnormal) (Susceptibility) Collected: 09/27/24 165 Lab Status: [...] is considered susceptible to doxycycline. Blood culture [[id number]] (Abnormal) (Susceptibility) Collected: 09/26/24 1422 Lab Status: Final result Specimen: Blood, Venous Updated: 10/01/24 0658 Blood Culture Methicillin Resistant Staphylococcus aureus Comment: detected by PCR Isolate saved. If future testing is required, contact the Microbiology Industrial Technician. Gram Stain Aerobic Bottle: Gram positive cocci in clusters Susceptibility Methicillin Resistant Staphylococcus aureus VITEK 2 METHOD Clindamycin Resistant Gentamicin Susceptible [1] Linezolid Susceptible Oxacillin Resistant Trimethoprim/Sulfa Susceptible Vancomycin Susceptible [1] Gentamicin is not appropriate for monotherapy for gram-positive infections. Blood culture [[id number]] (Abnormal) Collected: 09/26/24 1845 Lab Status: Final result Specimen: Blood, Venous Updated: 10/01/24 0658 Blood Culture Methicillin Resistant Staphylococcus aureus Comment: isolated. Susceptibilities previously reported. Gram Stain Aerobic Bottle: Gram positive cocci in clusters Abscess/Wound Aspirate Culture, Aerobic & Anaerobic [[id number]] (Abnormal) Collected: 09/26/24 1650 Lab Status: Final result Specimen: Abscess from Groin, Left Updated: 09/30/24 1551 Narrative: The following orders were created for panel order Abscess/Wound Aspirate Culture, Aerobic & Anaerobic. Procedure Abnormality Status --------- ------ Abscess/Wound Aspirate C...[[id number]] Abnormal Final result Anaerobic Culture[[id number]] Final result Please view results for these tests on the individual orders. Anaerobic Culture [[id number]] Collected: 09/26/24 1650 Lab Status: Final result Specimen: Abscess from Groin, Left Updated: 09/30/24 1551 Anaerobic Culture No anaerobic organisms isolated Abscess/Wound Aspirate Culture, Aerobic & Anaerobic [[id number]] (Abnormal) Collected: 09/26/24 1702 Lab Status: Final result Specimen: Abscess from Knee, Left Updated: 09/30/24 1551 Narrative: The following orders were created for panel order Abscess/Wound Aspirate Culture, Aerobic & Anaerobic. Procedure Abnormality Status --------- ------ Abscess/Wound Aspirate C...[[id number]] Abnormal Final result Anaerobic Culture[[id number]] Final result Please view results for these tests on the individual orders. Anaerobic Culture [[id number]] Collected: 09/26/24 1702 Lab Status: Final result Specimen: Abscess from Knee, Left Updated: 09/30/24 1551 Anaerobic Culture No anaerobic organisms isolated Sonicated Tissue/Implant Culture [[id number]] (Abnormal) Collected: 09/26/24 1716 Lab Status: Final result Specimen: Vascular Graft from Leg, Left Updated: 09/30/24 1349 Sonicated Tissue/Implant Culture Methicillin Resistant Staphylococcus aureus Comment: isolated from broth culture. Susceptibilities previously reported. Abscess/Wound Aspirate Culture, Aerobic Only [[id number]] (Abnormal) (Susceptibility) Collected: 09/26/24 1702 Lab Status: [...] to doxycycline. Abscess/Wound Aspirate Culture, Aerobic Only [[id number]] (Abnormal) (Susceptibility) Collected: 09/26/24 165 Lab Status: [...] is considered susceptible to doxycycline. AFB culture [[id number]] Collected: 09/27/241653 Lab Status: Preliminary result Specimen: Tissue from Thigh, Left Updated: 09/29/24 1201 Acid Fast Bacilli Culture No acid fast bacilli isolated to date. Acid Fast Stain No acid fast bacilli seen Fungus culture [[id number]] Collected: 09/27/241653 Lab Status: Preliminary result Specimen: [...] 2nd toe amputation who was transferred from [facility] given concern for infected left fem-BK popliteal PTFE bypass. 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 10/05/24 Doing well postoperatively. Dressings changed at bedside today, ID recs for long-term abx noted, will engage with OPAT team and begin d/c coordination once tentative d/c date is known. Plan: - Continue to monitor RYA drain output - Continue to monitor BP, [...] 81mg daily Benjamin Iniguez MD 10/05/2024 Pager: [phone] Associated attestation - Hayley Torres MD - [...] aspirate- MRSA Antimicrobials: Vancomycin- Imaging/diagnostics: CT lower blealkzif11/20 IMPRESSION: 1. Interval explant of LEFT femoral [...] male who underwent a left lower extremity rvverdf-ip-ykcht-kneepopliteal artery bypass on August 01, 2024, and [...] concerns. Please page ID John whitehead (pager [phone]) with questions or concerns. Lynne Leavitt MD Fellow, Infectious Disease Pager: [phone] Epic Chat 10/02/2024 This note was created using [employer] voice recognition software. Associated attestation - Amaya [...] Procedure Component Value - Date/Time Blood culture [[id number]] Collected: 09/29/242123 Lab Status: Final result Specimen: Blood, Venous Updated: 11/27/24 2301 Blood Culture No growth at 120 hours Blood culture [[id number]] Collected: 09/29/242123 Lab Status: Final result Specimen: Blood, Venous Updated: 10/04/24 2301 Blood Culture No growth at 120 hours AFB culture [[id number]] Collected: 09/26/24 1702 Lab Status: Preliminary result Specimen: Abscess from Knee, Left Updated: 10/04/24 1201 Acid Fast Bacilli Culture No acid fast bacilli isolated at 1 week. Acid Fast Stain No acid fast bacilli seen Blood culture [[id number]] Collected: 09/28/24 1749 Lab Status: Final result Specimen: Blood, Venous Updated: 10/03/24 1901 Blood Culture No growth at 120 hours Blood culture [[id number]] (Abnormal) Collected: 09/27/242132 Lab Status: Final result Specimen: Blood, Venous Updated: 10/02/24 0804 Blood Culture Methicillin Resistant Staphylococcus aureus Comment: Susceptibilities previously reported. Gram Stain Aerobic Bottle: Gram positive cocci in clusters Tissue Culture, Aerobic & Anaerobic [[id number]] Collected: 09/27/241653 Lab Status: Final result Specimen: Tissue from Thigh, Left Updated: 10/01/24 1554 Narrative: The following orders were created for panel order Tissue Culture, Aerobic & Anaerobic. Procedure Abnormality Status --------- ------ Tissue Culture, Aerobic ...[[id number]] Anaerobic Culture[[id number]] Final result Please view results for these tests on the individual orders. Anaerobic Culture [[id number]] Collected: 09/27/241653 Lab Status: Final result Specimen: Tissue from Thigh, Left Updated: 10/01/24 1554 Anaerobic Culture No anaerobic organisms isolated Tissue Culture, Aerobic Only [[id number]] (Abnormal) (Susceptibility) Collected: 09/27/241653 Lab Status: Final [...] is considered susceptible to doxycycline. Blood culture [[id number]] (Abnormal) (Susceptibility) Collected: 09/26/24 1422 Lab Status: Final result Specimen: Blood, Venous Updated: 10/01/24 0658 Blood Culture Methicillin Resistant Staphylococcus aureus Comment: detected by PCR Isolate saved. If future testing is required, contact the Microbiology Industrial Technician. Gram Stain Aerobic Bottle: Gram positive cocci in clusters Susceptibility Methicillin Resistant Staphylococcus aureus VITEK 2 METHOD Clindamycin >=8.0 ug/ml Resistant Gentamicin <=0.5 ug/ml Susceptible [1] Linezolid 2.0 ug/ml Susceptible Oxacillin >=4.0 ug/ml Resistant Trimethoprim/Sulfa <=10.0 ug/ml Susceptible Vancomycin 1.0 ug/ml Susceptible [1] Gentamicin is not appropriate for monotherapy for gram-positive infections. Blood culture [[id number]] (Abnormal) Collected: 09/26/24 1845 Lab Status: Final result Specimen: Blood, Venous Updated: 10/01/24 0658 Blood Culture Methicillin Resistant Staphylococcus aureus Comment: isolated. Susceptibilities previously reported. Gram Stain Aerobic Bottle: Gram positive cocci in clusters Abscess/Wound Aspirate Culture, Aerobic & Anaerobic [[id number]] (Abnormal) Collected: 09/26/24 1650 Lab Status: Final result Specimen: Abscess from Groin, Left Updated: 09/30/24 1551 Narrative: The following orders were created for panel order Abscess/Wound Aspirate Culture, Aerobic & Anaerobic. Procedure Abnormality Status --------- ------ Abscess/Wound Aspirate C...[[id number]] Abnormal Final result Anaerobic Culture[[id number]] Final result Please view results for these tests on the individual orders. Anaerobic Culture [[id number]] Collected: 09/26/24 1650 Lab Status: Final result Specimen: Abscess from Groin, Left Updated: 09/30/24 1551 Anaerobic Culture No anaerobic organisms isolated Abscess/Wound Aspirate Culture, Aerobic & Anaerobic [[id number]] (Abnormal) Collected: 09/26/24 1702 Lab Status: Final result Specimen: Abscess from Knee, Left Updated: 09/30/24 1551 Narrative: The following orders were created for panel order Abscess/Wound Aspirate Culture, Aerobic & Anaerobic. Procedure Abnormality Status --------- ------ Abscess/Wound Aspirate C...[[id number]] Abnormal Final result Anaerobic Culture[[id number]] Final result Please view results for these tests on the individual orders. Anaerobic Culture [[id number]] Collected: 09/26/24 170 Lab Status: Final result Specimen: Abscess from Knee, Left Updated: 09/30/24 1551 Anaerobic Culture No anaerobic organisms isolated Sonicated Tissue/Implant Culture [[id number]] (Abnormal) Collected: 09/26/24 1716 Lab Status: Final result Specimen: Vascular Graft from Leg, Left Updated: 09/30/24 1349 Sonicated Tissue/Implant Culture Methicillin Resistant Staphylococcus aureus Comment: isolated from broth culture. Susceptibilities previously reported. Abscess/Wound Aspirate Culture, Aerobic Only [[id number]] (Abnormal) (Susceptibility) Collected: 09/26/24 170 Lab Status: [...] to doxycycline. Abscess/Wound Aspirate Culture, Aerobic Only [[id number]] (Abnormal) (Susceptibility) Collected: 09/26/24 1650 Lab Status: [...] is considered susceptible to doxycycline. AFB culture [[id number]] Collected: 09/27/241653 Lab Status: Preliminary result Specimen: Tissue from Thigh, Left Updated: 09/29/24 1201 Acid Fast Bacilli Culture No acid fast bacilli isolated to date. Acid Fast Stain No acid fast bacilli seen Fungus culture [[id number]] Collected: 09/27/241653 Lab Status: Preliminary result Specimen: [...] for consulting infectious diseases. Amaya Hernandez MD, [facility] Infectious Diseases Staff Physician * [...] NPO Monitoring: Q4 Fawn Cunningham APRN [facility] Endocrinology Diabetes Management Pager [phone] Weekends please page [phone] 35 minutes were spent over the course [...] 2nd toe amputation who was transferred from [facility] given concern for infected left [...] 1 week ago. He presented to [facility] on 09/26 and went to the OR [...] Procedure Component Value - Date/Time Blood culture [[id number]] Collected: 09/29/242123 Lab Status: Preliminary result Specimen: Blood, Venous Updated: 10/03/24 230 Blood Culture No growth at 96 hours Blood culture [[id number]] Collected: 09/29/242123 Lab Status: Preliminary result Specimen: Blood, Venous Updated: 10/03/24 230 Blood Culture No growth at 96 hours Blood culture [[id number]] Collected: 09/28/24 1749 Lab Status: Final result Specimen: Blood, Venous Updated: 10/03/24 1901 Blood Culture No growth at 120 hours Blood culture [[id number]] (Abnormal) Collected: 09/27/242132 Lab Status: Final result Specimen: Blood, Venous Updated: 10/02/24 0804 Blood Culture Methicillin Resistant Staphylococcus aureus Comment: Susceptibilities previously reported. Gram Stain Aerobic Bottle: Gram positive cocci in clusters Tissue Culture, Aerobic & Anaerobic [[id number]] Collected: 09/27/241653 Lab Status: Final result Specimen: Tissue from Thigh, Left Updated: 10/01/24 155 Narrative: The following orders were created for panel order Tissue Culture, Aerobic & Anaerobic. Procedure Abnormality Status --------- ------ Tissue Culture, Aerobic ...[[id number]] Anaerobic Culture[[id number]] Final result Please view results for these tests on the individual orders. Anaerobic Culture [[id number]] Collected: 09/27/241653 Lab Status: Final result Specimen: Tissue from Thigh, Left Updated: 10/01/24 1554 Anaerobic Culture No anaerobic organisms isolated Tissue Culture, Aerobic Only [[id number]] (Abnormal) (Susceptibility) Collected: 09/27/24 1654 Lab Status: [...] is considered susceptible to doxycycline. Blood culture [[id number]] (Abnormal) (Susceptibility) Collected: 09/26/24 1422 Lab Status: Final result Specimen: Blood, Venous Updated: 10/01/24 0658 Blood Culture Methicillin Resistant Staphylococcus aureus Comment: detected by PCR Isolate saved. If future testing is required, contact the Microbiology Industrial Technician. Gram Stain Aerobic Bottle: Gram positive cocci in clusters Susceptibility Methicillin Resistant Staphylococcus aureus VITEK 2 METHOD Clindamycin Resistant Gentamicin Susceptible [1] Linezolid Susceptible Oxacillin Resistant Trimethoprim/Sulfa Susceptible Vancomycin Susceptible [1] Gentamicin is not appropriate for monotherapy for gram-positive infections. Blood culture [[id number]] (Abnormal) Collected: 09/26/24 1845 Lab Status: Final result Specimen: Blood, Venous Updated: 10/01/24 0658 Blood Culture Methicillin Resistant Staphylococcus aureus Comment: isolated. Susceptibilities previously reported. Gram Stain Aerobic Bottle: Gram positive cocci in clusters Abscess/Wound Aspirate Culture, Aerobic & Anaerobic [[id number]] (Abnormal) Collected: 09/26/24 165 Lab Status: Final result Specimen: Abscess from Groin, Left Updated: 09/30/24 1551 Narrative: The following orders were created for panel order Abscess/Wound Aspirate Culture, Aerobic & Anaerobic. Procedure Abnormality Status --------- ------ Abscess/Wound Aspirate C...[[id number]] Abnormal Final result Anaerobic Culture[[id number]] Final result Please view results for these tests on the individual orders. Anaerobic Culture [[id number]] Collected: 09/26/241649 Lab Status: Final result Specimen: Abscess from Groin, Left Updated: 09/30/24 1551 Anaerobic Culture No anaerobic organisms isolated Abscess/Wound Aspirate Culture, Aerobic & Anaerobic [[id number]] (Abnormal) Collected: 09/26/24 1702 Lab Status: Final result Specimen: Abscess from Knee, Left Updated: 09/30/24 1551 Narrative: The following orders were created for panel order Abscess/Wound Aspirate Culture, Aerobic & Anaerobic. Procedure Abnormality Status --------- ------ Abscess/Wound Aspirate C...[[id number]] Abnormal Final result Anaerobic Culture[[id number]] Final result Please view results for these tests on the individual orders. Anaerobic Culture [[id number]] Collected: 09/26/24 1702 Lab Status: Final result Specimen: Abscess from Knee, Left Updated: 09/30/24 1551 Anaerobic Culture No anaerobic organisms isolated Sonicated Tissue/Implant Culture [[id number]] (Abnormal) Collected: 09/26/24 1716 Lab Status: Final result Specimen: Vascular Graft from Leg, Left Updated: 09/30/24 1349 Sonicated Tissue/Implant Culture Methicillin Resistant Staphylococcus aureus Comment: isolated from broth culture. Susceptibilities previously reported. Abscess/Wound Aspirate Culture, Aerobic Only [[id number]] (Abnormal) (Susceptibility) Collected: 09/26/24 1702 Lab Status: [...] to doxycycline. Abscess/Wound Aspirate Culture, Aerobic Only [[id number]] (Abnormal) (Susceptibility) Collected: 09/26/24 1650 Lab Status: [...] is considered susceptible to doxycycline. AFB culture [[id number]] Collected: 09/27/24 1654 Lab Status: Preliminary result Specimen: Tissue from Thigh, Left Updated: 09/29/24 1201 Acid Fast Bacilli Culture No acid fast bacilli isolated to date. Acid Fast Stain No acid fast bacilli seen AFB culture [[id number]] Collected: 09/26/24 1702 Lab Status: Preliminary result Specimen: Abscess from Knee, Left Updated: 09/29/24 1201 Acid Fast Bacilli Culture No acid fast bacilli isolated to date. Acid Fast Stain No acid fast bacilli seen Fungus culture [[id number]] Collected: 09/27/24 1654 Lab Status: Preliminary result Specimen: Tissue from Thigh, Left Updated: 09/28/24 0748 Fungus Culture No fungus isolated to date MRSA PCR Screen [[id number]] (Abnormal) Collected: 09/27/24 0751 Lab Status: Final result Specimen: Swab from Nares Updated: 09/27/24 1156 MRSA PCR Detected Narrative: This test was performed using the Xpert MRSA NxG test kit and is run on the [employer] Dx System. This test is cleared by the U.S. Food and Drug Administration for clinical use and its performance characteristics have been verified by the [facility] at [facility]. New Studies: - None Assessment & Plan: Geovanna Dixon Jr. is a 49 y.o. male with a history of HTN, HLD, NSTEMI, CAD s/p CABG (12/2011), DM,obesity, PAD s/p L iliofem endart and L fem-BK pop bypass and L 2nd toe amputation who was transferred from [facility] given concern for infected left fem-BK popliteal PTFE bypass. 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 Slurry Mixer met pt at bedside. Pt sharedthat his [...] nausea and no vomiting Last Bowel Movement: (LASTING MACHINE OPERATOR BED- MD made aware) Patient education / questions: all nutrition related questions answered at this time Nutrition services to follow weekly through hospital course unless consulted in the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 Genomics and [facility] Technology Laboratory at [facility]. Fungus culture [[id number]] Collected: 09/26/241649 Lab Status: Preliminary result Specimen: Abscess from Groin, Left Updated: 09/27/24 0727 Fungus Culture No fungus isolated to date Fungus culture [[id number]] Collected: 09/26/24 1702 Lab Status: Preliminary result [...] 2nd toe amputation who was transferred from [facility] given concern for infected left fem-BK popliteal PTFE bypass. 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 10/01/24: Tolerated gentle irrigation with saline at BSD today with clear to mildly serosang drainage - no purulence or malodor noted and patient tolerated well. Will plan for NPO at NH for return Sylwia tomorrow. Hypertensive overnight, home [...] - ISS - diet today; NPO at NH for OR Tuesday 10/02 Anticoagulation: SQH TID Antiplatelet: ASA 81 María Carranza APRN 10/01/2024 Pager: [phone] * Karolyn Hudson MD - 09/30/2024 11:21 AM EST Images from the original note were not included. Vascular Surgery Progress Note Patient ID Geovanna Dixon Jr. is a 49 y.o. 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 He presented to [facility] on 09/26 and went to the OR [...] at bedside. Superior aspect of groin incisionwith yugn drains and wound vac to suction and [...] Procedure Component Value - Date/Time Blood culture [[id number]] (Abnormal) Collected: 09/27/24 2133 Lab Status: Preliminary result Specimen: Blood, Venous Updated: 09/30/24 0718 Blood Culture Methicillin Resistant Staphylococcus aureus Comment: Susceptibilities previously reported. Gram Stain Aerobic Bottle: Gram positive cocci in clusters Blood culture [[id number]] Collected: 09/28/24 1749 Lab Status: Preliminary result Specimen: Blood, Venous Updated: 09/29/24 1901 Blood Culture No Growth at 18-24 hrs. AFB culture [[id number]] Collected: 09/27/24 1654 Lab Status: Preliminary result Specimen: Tissue from Thigh, Left Updated: 09/29/24 1201 Acid Fast Bacilli Culture No acid fast bacilli isolated to date. Acid Fast Stain No acid fast bacilli seen AFB culture [[id number]] Collected: 09/26/24 1702 Lab Status: Preliminary result Specimen: Abscess from Knee, Left Updated: 09/29/24 1201 Acid Fast Bacilli Culture No acid fast bacilli isolated to date. Acid Fast Stain No acid fast bacilli seen Sonicated Tissue/Implant Culture [[id number]] (Abnormal) Collected: 09/26/24 1716 Lab Status: Preliminary result Specimen: Vascular Graft from Leg, Left Updated: 09/29/24 1132 Sonicated Tissue/Implant Culture Methicillin Resistant Staphylococcus aureus Comment: isolated from broth culture. Susceptibilities previously reported. Tissue Culture, Aerobic Only [[id number]] (Abnormal) (Susceptibility) Collected: 09/27/24 1654 Lab Status: [...] is considered susceptible to doxycycline. Blood culture [[id number]] (Abnormal) Collected: 09/26/24 1845 Lab Status: Preliminary result Specimen: Blood, Venous Updated: 09/29/24 0719 Blood Culture Methicillin Resistant Staphylococcus aureus Comment: isolated. Susceptibilities previously reported. Gram Stain Aerobic Bottle: Gram positive cocci in clusters Blood culture [[id number]] (Abnormal) (Susceptibility) Collected: 09/26/24 1422 Lab Status: Preliminary result Specimen: Blood, Venous Updated: 09/29/24 0717 Blood Culture Methicillin Resistant Staphylococcus aureus Comment: detected by PCR Isolate saved. If future testing is required, contact the Microbiology Industrial Technician. Gram Stain Aerobic Bottle: Gram positive cocci in clusters Susceptibility Methicillin Resistant Staphylococcus aureus VITEK 2 METHOD Clindamycin Resistant Gentamicin Susceptible [1] Linezolid Susceptible Oxacillin Resistant Trimethoprim/Sulfa Susceptible Vancomycin Susceptible [1] Gentamicin is not appropriate for monotherapy for gram-positive infections. Anaerobic Culture [[id number]] Collected: 09/27/24 1654 Lab Status: Preliminary result Specimen: Tissue from Thigh, Left Updated: 09/28/24 1355 Anaerobic Culture No anaerobic organisms isolated to date Abscess/Wound Aspirate Culture, Aerobic Only [[id number]] (Abnormal) (Susceptibility) Collected: 09/26/24 1702 Lab Status: [...] to doxycycline. Abscess/Wound Aspirate Culture, Aerobic Only [[id number]] (Abnormal) (Susceptibility) Collected: 09/26/24 1650 Lab Status: [...] is considered susceptible to doxycycline. Fungus culture [[id number]] Collected: 09/27/241653 Lab Status: Preliminary result Specimen: Tissue from Thigh, Left Updated: 09/28/24 0748 Fungus Culture No fungus isolated to date MRSA PCR Screen [[id number]] (Abnormal) Collected: 09/27/24 0751 Lab Status: Final result Specimen: Swab from Nares Updated: 09/27/24 1156 MRSA PCR Detected Narrative: This test was performed using the Xpert MRSA NxG test kit and is run on the i[employer]ollo [employer] Dx System. This test is cleared by the U.S. Food and Drug Administration for clinical use and its performance characteristics have been verified by the Clinical Genomics and [facility] Technology Laboratory at [facility]. Anaerobic Culture [[id number]] Collected: 09/26/241649 Lab Status: Preliminary result Specimen: Abscess from Groin, Left Updated: 09/27/24 1142 Anaerobic Culture No anaerobic organisms isolated to date Anaerobic Culture [[id number]] Collected: 09/26/241701 Lab Status: Preliminary result Specimen: Abscess from Knee, Left Updated: 09/27/24 1142 Anaerobic Culture No anaerobic organisms isolated to date Fungus culture [[id number]] Collected: 09/26/241649 Lab Status: Preliminary result Specimen: Abscess from Groin, Left Updated: 09/27/24 0727 Fungus Culture No fungus isolated to date Fungus culture [[id number]] Collected: 09/26/241701 Lab Status: Preliminary result Specimen: Abscess from Knee, Left Updated: 09/27/24 0727 Fungus Culture No fungus isolated to date New Studies Results for orders placed or performed during the hospital encounter of 09/26/24 Request For 2nd Read CT Lower Extremity (Exam End: 09/26/2024 1:50 PM) Result Value WORKSTATION ID [id number] Impression 1. There is a left femoral [...] who have questions please contact the health field care advocate that requested your imaging first. Electronically signed by: Lisette Bruno MD, [facility] ([phone]), at 09/26/2024 3:[address] Lower Extremity w Contrast Left (Exam End: 09/27/2024 9:16 AM) Result Value WORKSTATION ID [id number] Impression IMPRESSION: 1. Interval explant of LEFT [...] who have questions please contact the health field care advocate that requested your imaging first. Electronically signed by: Ignacia Chi MD, [facility] ([phone]), at 09/27/2024 10:48 AM 09/28 ABIs Interpretation: [...] 2nd toe amputation who was transferred from [facility] given concern for infected left [...] Labs 09/28/24 1516 PHART 7.42 PO2ART 103 JUE5ETH 39 LACTATEART 1.1 BEART 0.2 Is this [...] 1643 PHART 7.42 7.38 PO2ART 103 96 ROS3HNQ 39 41 LACTATEART 1.1 1.7 BEART 0.2 [...] MD Vascular Surgery 09/28/24 * Fawn Cunningham, TANK CAR INSPECTOR - 09/28/2024 12:02 PM EST Follow Up [...] CC Monitoring: Q4 Fawn Cunningham APRN [facility] Endocrinology Diabetes Management Pager [phone] Weekends please page [phone] 35 minutes were spent over the course [...] Labs 09/26/24 1643 PHART 7.38 PO2ART 96 [id number] 41 LACTATEART 1.7 BEART -1.4 Is this [...] 2nd toe amputation who was transferred from [facility] given concern for infected left [...] 1 week ago. He presented to [facility] on 09/26 and went to the OR [...] Procedure Component Value - Date/Time Fungus culture [[id number]] Collected: 09/27/241653 Lab Status: Preliminary result Specimen: Tissue from Thigh, Left Updated: 09/28/24 0748 Fungus Culture No fungus isolated to date Blood culture [[id number]] (Abnormal) Collected: 09/26/24 1845 Lab Status: Preliminary result Specimen: Blood, Venous Updated: 09/28/24 0711 Blood Culture Methicillin Resistant Staphylococcus aureus Comment: isolated. Susceptibility testing in progress. Gram Stain Aerobic Bottle: Gram positive cocci in clusters AFB culture [[id number]] Collected: 09/26/24 1702 Lab Status: Preliminary result Specimen: Abscess from Knee, Left Updated: 09/27/24 2335 Acid Fast Stain No acid fast bacilli seen Tissue Culture, Aerobic Only [[id number]] Collected: 09/27/24 165 Lab Status: Preliminary result Specimen: Tissue from Thigh, Left Updated: 09/27/24 1810 Gram Stain Few Neutrophils seen No microorganisms seen Abscess/Wound Aspirate Culture, Aerobic Only [[id number]] (Abnormal) Collected: 09/26/24 170 Lab Status: Preliminary result Specimen: Abscess from Knee, Left Updated: 09/27/24 1520 Abscess/Wound Aspirate Culture Many Staphylococcus aureus Gram Stain Many neutrophils Many Gram positive cocci Abscess/Wound Aspirate Culture, Aerobic Only [[id number]] (Abnormal) Collected: 09/26/241649 Lab Status: Preliminary result Specimen: Abscess from Groin, Left Updated: 09/27/24 1519 Abscess/Wound Aspirate Culture Many Staphylococcus aureus Gram Stain Many neutrophils Many Gram positive cocci Blood culture [[id number]] (Abnormal) Collected: 09/26/24 1422 Lab Status: Preliminary result Specimen: Blood, Venous Updated: 09/27/24 1320 Blood Culture Methicillin Resistant Staphylococcus aureus Comment: detected by PCR Gram Stain Aerobic Bottle: Gram positive cocci in clusters MRSA PCR Screen [[id number]] (Abnormal) Collected: 09/27/24 0751 Lab Status: Final result Specimen: Swab from Nares Updated: 09/27/24 1156 MRSA PCR Detected Narrative: This test was performed using the Xpert MRSA NxG test kit and is run on the [employer]Follo [employer] Dx System. This test is cleared by the U.S. Food and Drug Administration for clinical use and its performance characteristics have been verified by the Clinical Genomics and [facility] Technology Laboratory at [facility]. Anaerobic Culture [[id number]] Collected: 09/26/241649 Lab Status: Preliminary result Specimen: Abscess from Groin, Left Updated: 09/27/24 1142 Anaerobic Culture No anaerobic organisms isolated to date Anaerobic Culture [[id number]] Collected: 09/26/241701 Lab Status: Preliminary result Specimen: Abscess from Knee, Left Updated: 09/27/24 1142 Anaerobic Culture No anaerobic organisms isolated to date Fungus culture [[id number]] Collected: 09/26/241649 Lab Status: Preliminary result Specimen: Abscess from Groin, Left Updated: 09/27/24 0727 Fungus Culture No fungus isolated to date Fungus culture [[id number]] Collected: 09/26/241701 Lab Status: Preliminary result Specimen: Abscess from Knee, Left Updated: 09/27/24 0727 Fungus Culture No fungus isolated to date New Studies Results for orders placed or performed during the hospital encounter of 09/26/24 Request For 2nd Read CT Lower Extremity (Exam End: 09/26/2024 1:50 PM) Result Value WORKSTATION ID [id number] Impression 1. There is a left femoral [...] who have questions please contact the health field care advocate that requested your imaging first. Electronically signed by: Lisette Bruno MD, [facility] ([phone]), at 09/26/2024 3:[address] Lower Extremity w Contrast Left (Exam End: 09/27/2024 9:16 AM) Result Value WORKSTATION ID [id number] Impression IMPRESSION: 1. Interval explant of LEFT [...] who have questions please contact the health field care advocate that requested your imaging first. Electronically signed by: Ignacia Cih MD, [facility] ([phone]), at 09/27/2024 10:48 AM Assessment & Plan Geovanna Dixon Jr. is a 49 y.o. male with a history of HTN, HLD, NSTEMI, CAD s/p CABG (12/2011), DM,obesity, PAD s/p L iliofem endart and L fem-BK pop bypass and L 2nd toe amputation who was transferred from [facility] given concern for infected left [...] Superior part of dressing taken down. [address] Abd pads with serosanguinous [...] Kita Hodge - 09/27/2024 3:58 PM EST Call Center Coordinator Encounter Note Patient Name: Geovanna Dixon Jr. : [id number] MR#: [id number] Admit Date: 09/26/2024 2:08 PM Hospital Day 1 day Narrative: Station Chief initiated visit with patient during rounds on the unit. Patient indicated that he was not hoahaoism. He reported that he was in less [...] Labs 09/26/24 1643 PHART 7.38 PO2ART 96 [id number] 41 LACTATEART 1.7 BEART -1.4 Is this [...] 2nd toe amputation who was transferred from [facility] given concern for infected left [...] 1 week ago. He presented to [facility] on 09/26 and went to the OR [...] 2nd toe amputation who was transferred from [facility] given concern for infected left fem-BK popliteal PTFE bypass. He is now s/p an explantof an infected left femoral-below knee popliteal artery bypass graft. Significant purulence under pr essure was seen intraoperatively, surrounding the entire bypass at proximal and distal anastomoses as well as the tunnel. There are retained grafts left at proximal and distal anastomoses, and a [place] drain placed from left groin to left [...] bedside. Superior aspect of RLE incision with uyng drain, incision well-approximated with cameron, no erythema [...] graft associated infection. The patient presented to [facility] ED on 09/26 for evaluation [...] remained hemodynamically stable during his time at [facility] and was transported by ground to [facility] for vascular surgery consultation. Patient was admitted [...] 3.51) performed by Thony Garcia MD at [facility] MAIN OR PRO BYPASS GRAFT OTHR, FEM-TIBIAL Left 08/01/2024 @BYPASS GRAFT, FEM-ANT TIBIAL, -POST TIBIAL, -PERONEAL, -DP W\ SYNTHETIC CONDUIT (WRVU 23.66) performed by Lisette Maldonado MD at [facility] MAIN OR PRO CABG, ARTERY-VEIN, SINGLE 01/04/2012 @CABG, VENOUS & ARTERIAL GRAFT;SINGLE VEIN GRAFT performed by INNA TOVAR at [facility] MAIN OR PRO ENDOSCOPY W/VIDEO-ASST VEIN HARVEST, CABG 01/04/2012 ENDOSCOPIC HARVEST VEIN(S) FOR CABG performed by INNA TOVAR at [facility] MAIN OR VS ARTERIOGRAM LOWER EXTREMITY VASCULAR SURGERY 07/20/2024 VS Arteriogram Lower Extremity Vascular Surgery 07/20/2024 Anabel Finney MD [facility] INTERVENTIONL RAD Prior To Admission Medications: Medications [...] 3 times daily. Use as instructed Indications: [id number] each 1 Past Week FreeStyle Lancets 28 [...] - 393 mg/dL Type and screen ([facility]/CGP/BABITA) Result Value Ref Range ABORH Type A POSITIVE PATIENT HISTORY Found Expires at 1125 on: 09/29/2024 ANTIBODY SCREEN AUTOMATED Negative T&S only valid at [facility] LAB CBC (with Diff) Result Value Ref [...] 09/26/2024 1:50 PM) Result Value WORKSTATION ID [id number] Impression 1. There is a left femoral [...] who have questions please contact the health field care advocate that requested your imaging first. Electronically signed by: Lisette Bruno MD, [facility] ([phone]), at 09/26/2024 3:01 PM Assessment/Plan: Geovanna Dixon [...] to the planned procedure. Hand Hygiene: The computer systems engineer did perform hand hygiene prior to line insertion. Catheter type: PICC Lot number: [id number] Procedure Technique: Skin was prepped with chlorhexidine. [...] to the planned procedure. Hand Hygiene: The computer systems engineer did perform hand hygiene prior to line insertion. Catheter type: PICC Lot number: [id number] Procedure Technique: Skin was prepped with chlorhexidine. [...] abx and wound vac. [facility] with[facility]ister at 10am. Confirmed VNA visit. Delivery confirmed for tomorrow afternoon. Home Vac: I have called [facility] Inventory and they they have now delivered the home ActiVac serial # [id number]. Pt reviewed the [facility] ActiVac Proof of Delivery/Assignment of Benefits (POD/AOB)form and signed it; she has copy of this and the [facility] Patient Copy letter along with the supplies, I will fax copy of the POD/AOB to [facility]. Needs for Transition of Care: Plan for discharge is: Home w/ Services Outpatient Agency/Support Group Needs: Homecare agency Outpatient IV Medications - IV Access: Access Ordered Location: Home, Referred to [facility] Coordination, Referred to [facility] Home Health Services: Occupational Therapy, Physical Therapy, Registered Nurse Agency Referrals & Follow-up Care: Contact information [facility] [place] [address] [place] [address] Transportation: family or friend will provide Functional status prior to admission: Independent Home Environment: Others in the home: sibling(s), other (see comments) (lives with his sister delmy and brother in law). Current Living Arrangements: home/apartment/condo. Accessibility Concerns: . Current Functional Ability: Assistive Person and Equipment DME used at home: none Other DME Needs: Wound Vac Provider: [facility] Patient is insured through: Primary Insurance: [employer] MANAGED MEDICARE Payor: [employer] MANAGED MEDICARE / Plan: [employer] MANAGED MEDICARE PPO / Product Type: *No [...] Pain Flowsheets Taken 10/09/20242022 Pain Management Interventions: rbddhm-[id number]-iqdkd dosing utilized care clustered diversional activity provided [...] from the original note were not included. [facility] [place] [address] [facility] Vascular Access Service Peripherally Inserted Central Catheter (PICC) Teaching Sheet Peripherally inserted central catheters (bmxy-vm-xsoo) (PICC) are used when you need IV [...] midline catheter? PICC lines are used for custodial treatments. PICC lines may be used for [...] can be set up via the nurse Stagecraft Professor to help you. What are possible complications [...] Efficacy, Safety, Use, and Administration of Cathflo, [employer] 2005 * Care Management - Cristina [...] No Patient is insured through: Primary Insurance: [employer] MANAGED MEDICARE Payor: [employer] MANAGED MEDICARE / Plan: [employer] MANAGED MEDICARE [...] Ordered Location: Home, Referred to [facility] Coordination Home Health Services: Occupational Therapy, Physical Therapy, Registered Nurse- will remove PT, OT Agency [facility]errals: [facility] and [facility] for IV abx. [facility] can [...] 9:00 AM EST OFFICE OF CARE MANAGEMENT Stagecraft Professor Follow-up Note Cristina Turner RN reviewed record and discussed patient with Care Team. Patient had been determined to discharge home with [facility] home vac need. Patient plan of care discussed in multidisciplinary rounds and assessment for continuing care and discharge needs. Diagnosis: Vascular graft infection, initial encounter INSURANCE: Payor: [employer] MANAGED MEDICARE / Plan: [employer] MANAGED MEDICARE PPO / Product Type: *No Product type* / SECONDARY INSURANCE: N/A Discharge date planned for 10/09 if medically ready. Current Referral in place: VNA: [facility] Wound vac ordered in [email or web address] System for home wound vac and order emailed to: María for signature. Stagecraft Professor to follow with team and family to [...] where referrals are placed. Request referral to [place], [place] for IV abx or . Expected date of discharge: 10/11. Patient will require teaching. Referral routed to the Access Manager for matching with agency/vendor and to [...] care clustered diversional activity provided position adjusted ybrind-jiu-gftio dosing utilized pain management plan reviewed with [...] have. Alternately, during off-hours you may call [phone] to contact a pharmacist. * Plan of Care - Jordyn Navas RN - 10/07/2024 7:21 PM EST OUTCOME EVALUATION NOTE: OUTCOME SUMMARY: [facility], Meds/Assessments as charted, Frequent [...] PM EST PICC line placed today for custodial ABX. Neurovascular checks unchanged. Good oral intake [...] from the original [place] [address] [facility] Vascular Access Service Peripherally Inserted Central Catheter (PICC) Teaching Sheet Peripherally inserted central catheters (pokb-yr-ahps) (PICC) are used when you need IV [...] midline catheter? PICC lines are used for custodial treatments. PICC lines may be used for [...] can be set up via the nurse Stagecraft Professor to help you. What are possible complications [...] Vascular Access Device Selection, Insertion, and Management, [employer] Access Systems 08/12. A Review of the Efficacy, Safety, Use, and Administration of Cathflo, [employer] 2005 * Care Management - Vibha [...] through: Primary Insurance: [employer] MANAGED MEDICARE Payor: [employer] MANAGED MEDICARE / Plan: [employer] MANAGED MEDICARE [...] of Discharge: 10/10/2024 Vibha Wahl RN-BSN-CM Pager: [phone] * Consult Note - Stormy Muller [facility] - 10/06/2024 9:19 AM EST [facility] Pharmacokinetics Note Drug: Vancomycin Pharmacokinetic target: [...] Analysis of the most recent level(s) using Allazo[employer] gives the following patient-specific pharmacokinetic parameters: CL: [...] in a steady-state trough of 14.6 mg/L [id number] of 508 mg/L.hr. Recommendations: - SCr has [...] MD - 10/04/2024 5:01 PM EST [facility] Operative Note Patient Name: Geovanna Dixon : [id number] MR#: [id number] Case Date: 10/04/2024 Surgeon: Surgeons and Role: * Marko Dickson MD - Primary * Cristino Meeks MD - Resident - Assisting Preoperative diagnosis: Status post explant of infected left IT TELECOM TECHNICIAN-BK pop bypass graft Postoperative diagnosis: Status post explant of infected left IT TELECOM TECHNICIAN-BK pop bypass graft Procedure(s) (LRB): DEBRIDEMENT SKIN [...] 2nd toe amputation who was transferred from [facility] given concern for infected left fem-BK popliteal PTFE bypass. He is now s/p an explant of an infected left femoral-below knee popliteal artery bypass graft on 09/26 followed by I/D posterior thigh abscess on 09/27 then left GSV harvest, total explant of remaining PTFE then vein patch angioplasty of the left IT TELECOM TECHNICIAN and BK popliteal artery on 09/28 then [...] Note Patient Name: Geovanna Dixon Jr. : [id number] MR#: [id number] Case Date: 10/04/2024 Surgeon: Surgeons and Role: * Marko Dickson MD - Primary * Cristino Meeks MD - Resident - Assisting Preoperative diagnosis: Status post explant of infected left IT TELECOM TECHNICIAN-BK pop bypass graft Postoperative diagnosis: Status post explant of infected left IT TELECOM TECHNICIAN-BK pop bypass graft Procedure(s) (LRB): DEBRIDEMENT SKIN [...] No Patient is insured through: Primary Insurance: [employer] MANAGED MEDICARE Payor: [employer] MANAGED MEDICARE / Plan: [employer] MANAGED MEDICARE PPO / Product Type: *No [...] Therapy, Physical Therapy, Registered Nurse Agency Referrals: [facility] Transportation: family or friend will provide Barriers [...] BIT to reengage please page BIT @ [phone] * Consult Note - Vangie Chandra [facility] - 10/04/2024 10:42 AM EST [facility] Pharmacokinetics Note Drug: Vancomycin Pharmacokinetic target: AUC24 (range) 400-600 mg/L.hr Current regimen: 1500 mg IV every 8 hours Gevoanna Dixon is a(n) 49 years old male receiving Vancomycin 1500 mg IV every 8 hours for graft infection Recent measured serum creatinine values: 10/04/2024 00:08 0.56 mg/dL 10/03/2024 00:27 0.51 mg/dL 10/02/2024 00:41 0.49 mg/dL Assessment: Analysis of the most recent level(s) using [employer] gives the following patient-specific pharmacokinetic parameters: CL: [...] L 2nd toe amputationwho was transferred from [facility] given concern for infected left fem-BK popliteal PTFE bypass. He is now s/p an explant of an infected left femoral-below knee popliteal artery bypass graft (09/26), I/D groin abscess (09/27), L GSV harvest, vein patch angioplasty, L IT TELECOM TECHNICIAN and BK pop w/ sartorius flap L fem, I/D, 09/29 L sartorius flap revision, vac change. 10/03/24 NPO at [facility] for OR wound exploration. Wound [...] 3.51) performed by Thony Garcia MD at [facility] MAIN OR PRO BYPASS GRAFT OTHR, FEM-TIBIAL Left 08/01/2024 @BYPASS GRAFT, FEM-ANT TIBIAL, -POST TIBIAL, -PERONEAL, -DP W\ SYNTHETIC CONDUIT (WRVU 23.66) performed by Lisette Maldonado MD at [facility] MAIN OR PRO CABG, ARTERY-VEIN, SINGLE 01/04/2012 @CABG, VENOUS & ARTERIAL GRAFT;SINGLE VEIN GRAFT performed by INNA TOVAR at [facility] MAIN OR PRO DEBRIDEMENT MUSCLE AND FASCIA 20 SQ CM/< Left 09/29/2024 DEBRIDEMENT SKIN, SUBCU, MUSCLE, LOWER EXTREMITY (WRVU 2.7) performed by Anabel Finney MD at [facility] MAIN OR PRO DEBRIDEMENT MUSCLE AND FASCIA 20 SQ CM/< Left 10/02/2024 DEBRIDEMENT SKIN, SUBCU, MUSCLE, LOWER EXTREMITY (WRVU 2.7) performed by Hermila Mccromick MDat [facility] MAIN OR PRO DEBRIDEMENT SUBCUTANEOUS TISSUE 20 SQCM/< Left 09/27/2024 DEBRIDEMENT SKIN AND SUBCU, LOWER EXTREMITY (WRVU 1.01) performed by Hayley Torres MD at [facility] MAIN OR PRO DRAIN LOWER LEG DEEP ABSC/HEMATOMA Left 09/26/2024 INCISION & DRAINAGE, LEG OR ANKLE, DEEP ABSCESS OR HEMATOMA (WRVU 5.23) performed by Hayley Torres MD at [facility] MAIN OR PRO ENDOSCOPY W/VIDEO-ASST VEIN HARVEST, CABG 01/04/2012 ENDOSCOPIC HARVEST VEIN(S) FOR CABG performed by INNA TOVAR at [facility] MAIN OR PRO EXCISION, INFEC GRAFT, EXTREMITY Left 09/26/2024 EXCISION OF INFECTED GRAFT FROM LOWER EXTREMITY (WRVU 9.53) performed by Hayley Torres MD at [facility] MAIN OR PRO EXCISION, INFEC GRAFT, EXTREMITY Left 09/28/2024 EXCISION OF INFECTED GRAFT FROM LOWER EXTREMITY (WRVU 9.53) performed by Hayley Torres MD at [facility] MAIN OR PRO EXPLORATION NOT FOLLOWED BY SURG LOWER EXTREMITY ARTERY Left 09/29/2024 @EXPLORATION W\O SURGICAL REPAIR, FEMORAL ARTERY - JENNIFER (WRVU 7.5) performed by Anabel Finney MD at [facility] MAIN OR PRO FORM SKIN PEDICLE FLAP SCALP, ARM, LEG 09/28/2024 FLAP, PEDICLE,W OR W/O TRANSFER, LEGS (WRVU 10.12) performed by Hayley Torres MD at [facility] MAIN OR PRO I&D DEEP ABSCESS BURSA/HEMATOMA THIGH/KNEE REGION Left 09/26/2024 INCISION & DRAINAGE ABSCESS OR HEMATOMA, THIGH, KNEE SUPERFICIAL (WRVU 6.78) performed by Hayley Torres MD at [facility] MAIN OR PRO REVISION FEMORAL ANAST BPG GROIN OPEN W/NONAUTOG PATCH GRAFT Left 09/28/2024 REV. FEM. ANASTOMOSIS OF SYN. BYPASS GRAFT USING NONAUTOGENOUS PATCH ANGIOPLASTY-JENNIFER (WRVU 23.15) performed by Hayley Torres MD at [facility] MAIN OR PRO UNLISTED PROCEDURE VASCULAR SURGERY Left 09/28/2024 HARVEST SAPHENOUS VEIN (WRVU 13.24) performed by Hayley Torres MD at [facility] MAIN OR VS ARTERIOGRAM LOWER EXTREMITY VASCULAR SURGERY 07/20/2024 VS Arteriogram Lower Extremity Vascular Surgery 07/20/2024 Anabel Finney MD [facility] INTERVENTIONL RAD Social History: Patient lives w/ [...] Pt issued and educated on use of lighting fixture installer for lighting fixture installer lower items. Self-feeding: Independent Grooming: Set up [...] Discharge planning Total Minutes, Occupational Therapy: 35 ([phone]) OT Evaluation Code Rationale: Diagnosis & Pertinent Co-Morbidities affecting Plan of Care: see PMHx Occupational Profile & Client History: Brief Expanded Extensive x Assessment of Occupational Performance: 1-3 performance deficits 3-5 performance deficits x 5 + performance deficits Clinical Decision Making: Low Moderate High x Clinical decision making of low complexity using standardized patient assessment instrument and measurable assessment of functional outcome. Pager: [phone] Jorge Goetz OT 10/03/2024 Occupational Therapy Rehabilitation [...] MD - 10/02/2024 2:06 PM EST [facility] Operative Note Patient Name: Geovanna Dixon Jr. : [id number] MR#: [id number] Case Date: 10/02/2024 Surgeon: Surgeons and Role: [...] 2nd toe amputation who was transferred from [facility] given concern for infected left [...] the groin, we then attached a 15 Salvadorean Jose drain to the Yung drain, and remove the Yung drain, replacing it with the 15 Salvadorean Jose drain. In a similar way we [...] No Patient is insured through: Primary Insurance: [employer] MANAGED MEDICARE Payor: [employer] MANAGED MEDICARE / Plan: [employer] MANAGED MEDICARE PPO / Product Type: *No Product type* / Secondary Insurance: N/A Plan for discharge is: Pending Hospital Course and PT/OT Recommendations Outpatient Agency/Support Group Needs: None Home Health Services: Occupational Therapy, Physical Therapy, Registered Nurse Agency Referrals: [facility] [address] [address] Transportation: family or friend will provide Barriers to discharge: Global: Denies needs/concerns at this time Plan: Patient is not medically ready related to: patient is going to the OR today for a washout andremains on blowout precautions. Plan going forward is: when able patient will need to work with PT/OT Anticipated Date of Discharge: 10/10/2024 Penny ROSAS RN Phone: [phone] Pager: [phone] * Plan of Care - Heidi Mobley [...] output. * Consult Note - Katelyn Oconnor [facility] - 09/30/2024 7:43 AM EST [facility] Pharmacokinetics Note Drug: Vancomycin Pharmacokinetic target: AUC24 (range) 400-600 mg/L.hr Current regimen: 1500 mg IV every 8 hours Geovanna Dixon is a(n) 49 years old male receiving Vancomycin 1500 mg IV every 8 hours for bacteremia Recent measured serum creatinine values: 09/29/2024 23:52 0.48 mg/dL 09/28/2024 23:51 0.52 mg/dL 09/27/2024 23:58 0.48 mg/dL Assessment: Analysis of the most recent level(s) using [employer] gives the following patient-specific pharmacokinetic parameters: CL: [...] MD - 09/29/2024 2:41 PM EST [facility] Operative Note Patient Name: Geovanna Dixon Jr. : [id number] MR#: [id number] Case Date: 09/29/2024 Surgeon: Surgeons and Role: [...] 2nd toe amputation who was transferred from [facility] given concern for infected left [...] mobilized and explored. The area around the IT TELECOM TECHNICIAN was irrigated copiously. The flap was then [...] No Patient is insured through: Primary Insurance: [employer] MANAGED MEDICARE Payor: [employer] MANAGED MEDICARE / Plan: [employer] MANAGED MEDICARE PPO / Product Type: *No Product type* / Secondary Insurance: N/A Plan for discharge is: Pending Hospital Course and PT/OT Recommendations Outpatient Agency/Support Group Needs: None Home Health Services: Occupational Therapy, Physical Therapy, Registered Nurse Agency Referrals: [facility] [address] [place] [address] Transportation: family or friend will provide Barriers [...] Discharge: 10/04/2024 Penny ROSAS, RN CM Phone: [phone] Pager: [phone] * Consult Note - Rose Wright APRN [...] 2nd toe amputation who was transferred from [facility] given concern for infected left [...] 1 week ago. He presented to [facility] on 09/26 and went to the OR [...] Procedure Component Value - Date/Time Blood culture [[id number]] (Abnormal) Collected: 09/27/24 2133 Lab Status: Preliminary result Specimen: Blood, Venous Updated: 09/29/24 0721 Blood Culture Methicillin Resistant Staphylococcus aureus Gram Stain Aerobic Bottle: Gram positive cocci in clusters Blood culture [[id number]] (Abnormal) Collected: 09/26/24 1845 Lab Status: Preliminary result Specimen: Blood, Venous Updated: 09/29/24 0719 Blood Culture Methicillin Resistant Staphylococcus aureus Comment: isolated. Susceptibilities previously reported. Gram Stain Aerobic Bottle: Gram positive cocci in clusters Blood culture [[id number]] (Abnormal) (Susceptibility) Collected: 09/26/24 1422 Lab Status: Preliminary result Specimen: Blood, Venous Updated: 09/29/24 0717 Blood Culture Methicillin Resistant Staphylococcus aureus Comment: detected by PCR Isolate saved. If future testing is required, contact the Microbiology Industrial Technician. Gram Stain Aerobic Bottle: Gram positive cocci in clusters Susceptibility Methicillin Resistant Staphylococcus aureus VITEK 2 METHOD Clindamycin Resistant Gentamicin Susceptible [1] Linezolid Susceptible Oxacillin Resistant Trimethoprim/Sulfa Susceptible Vancomycin Susceptible [1] Gentamicin is not appropriate for monotherapy for gram-positive infections. AFB culture [[id number]] Collected: 09/27/241653 Lab Status: Preliminary result Specimen: Tissue from Thigh, Left Updated: 09/28/24 2226 Acid Fast Stain No acid fast bacilli seen Anaerobic Culture [[id number]] Collected: 09/27/241653 Lab Status: Preliminary result Specimen: Tissue from Thigh, Left Updated: 09/28/24 1355 Anaerobic Culture No anaerobic organisms isolated to date Sonicated Tissue/Implant Culture [[id number]] Collected: 09/26/24 1716 Lab Status: Preliminary result Specimen: Vascular Graft from Leg, Left Updated: 09/28/24 1323 Sonicated Tissue/Implant Culture Culture in progress Tissue Culture, Aerobic Only [[id number]] (Abnormal) Collected: 09/27/241653 Lab Status: Preliminary result Specimen: Tissue from Thigh, Left Updated: 09/28/24 1049 Tissue Culture Rare Staphylococcus aureus Gram Stain Few Neutrophils seen No microorganisms seen Abscess/Wound Aspirate Culture, Aerobic Only [[id number]] (Abnormal) (Susceptibility) Collected: 09/26/24 1702 Lab Status: [...] to doxycycline. Abscess/Wound Aspirate Culture, Aerobic Only [[id number]] (Abnormal) (Susceptibility) Collected: 09/26/24 165 Lab Status: [...] is considered susceptible to doxycycline. Fungus culture [[id number]] Collected: 09/27/241653 Lab Status: Preliminary result Specimen: Tissue from Thigh, Left Updated: 09/28/24 0748 Fungus Culture No fungus isolated to date AFB culture [[id number]] Collected: 09/26/241701 Lab Status: Preliminary result Specimen: Abscess from Knee, Left Updated: 09/27/24 2335 Acid Fast Stain No acid fast bacilli seen MRSA PCR Screen [[id number]] (Abnormal) Collected: 09/27/24 0751 Lab Status: Final result Specimen: Swab from Nares Updated: 09/27/24 1156 MRSA PCR Detected Narrative: This test was performed using the Xpert MRSA NxG test kit and is run on the iFollo GeneXpert Dx System. This test is cleared by the U.S. Food and Drug Administration for clinical use and its performance characteristics have been verified by the [facility] at [facility]. Anaerobic Culture [[id number]] Collected: 09/26/241649 Lab Status: Preliminary result Specimen: Abscess from Groin, Left Updated: 09/27/24 1142 Anaerobic Culture No anaerobic organisms isolated to date Anaerobic Culture [[id number]] Collected: 09/26/241701 Lab Status: Preliminary result Specimen: Abscess from Knee, Left Updated: 09/27/24 1142 Anaerobic Culture No anaerobic organisms isolated to date Fungus culture [[id number]] Collected: 09/26/241649 Lab Status: Preliminary result Specimen: Abscess from Groin, Left Updated: 09/27/24 0727 Fungus Culture No fungus isolated to date Fungus culture [[id number]] Collected: 09/26/241701 Lab Status: Preliminary result Specimen: Abscess from Knee, Left Updated: 09/27/24 07 Fungus Culture No fungus isolated to date New Studies Results for orders placed or performed during the hospital encounter of 09/26/[address] Read CT Lower Extremity (Exam End: 09/26/2024 1:50 PM) Result Value WORKSTATION ID [id number] Impression 1. There is a left femoral [...] who have questions please contact the health field care advocate that requested your imaging first. Electronically signed by: Lisette Bruno MD, [facility] ([phone]), at 09/26/2024 3:[address] Lower Extremity w Contrast Left (Exam End: 09/27/2024 9:16 AM) Result Value WORKSTATION ID [id number] Impression IMPRESSION: 1. Interval explant of LEFT [...] who have questions please contact the health field care advocate that requested your imaging first. Electronically signed by: Ignacia Chi MD, [facility] ([phone]), at 09/27/2024 10:48 AM 09/28 ABIs Interpretation: [...] 2nd toe amputation who was transferred from [facility] given concern for infected left [...] MD - 09/28/2024 12:23 PM EST [facility] Operative Note Patient Name: Geovanna Dixon Jr. : [id number] MR#: [id number] Case Date: 09/28/2024 Surgeon: Surgeons and Role: [...] pericardial patch and PTFE willard over the IT TELECOM TECHNICIAN was unincorporated. - Resection of prior femoral [...] Destination 1 : Left femoral proximal graft Road Grader Operator Leg, Left SURGICAL PATHOLOGY Hayley Torres MD 09/28/2024 1410 2 : Left distal BK pop graft Road Grader Operator Leg, Left SURGICAL PATHOLOGY Hayley Torres [...] Indications: 49M with history of a left IT TELECOM TECHNICIAN-BK popliteal artery bypass with PTFE performed in [...] solution. Systemic heparin was administered. Next, the IT TELECOM TECHNICIAN, SFA, and DFA were clamped. An 11-blade scalpel was used to excise the PTFE graft willard and the prior bovine pericardial patch, and all prior Prolene sutures were removed. Residual plaque in the arterial lumen was removed using a [place] elevator. The harvested vein patch was cut [...] the midline with division of the first billet inspector, such that the sartorius muscle was [...] prior bypass graft were irrigated below the [place] drains. Significant thrombus burden was expelled in [...] MD - 09/28/2024 12:23 PM EST [facility] Operative Note Patient Name: Geovanna Dixon Jr. : [id number] MR#: [id number] Case Date: 09/28/2024 Surgeon: Surgeons and Role: [...] - Prior bovine pericardial patch over the IT TELECOM TECHNICIAN was unincorporated. - Resection of prior femoral [...] No * Consult Note - Tea Nguyen, [facility] - 09/28/2024 9:23 AM EST [...] Analysis of the most recent level(s) using [employer] gives the following patient-specific pharmacokinetic parameters: CL: [...] Note Patient Name: Geovanna Dixon Jr. : [id number] MR#: [id number] Case Date: 09/27/2024 Surgeon: Surgeons and Role: [...] AEROBIC & ANAEROBIC Hayley Torres MD 09/27/2024 9572 Fluids: Intraprocedure Crystalloid Total None PRBCs: none [...] MD - 09/27/2024 4:27 PM EST [facility] Operative Note Patient Name: Geovanna Dixon Jr. : [id number] MR#: [id number] Case Date: 09/26/2024 Surgeon: Surgeons and Role: [...] ANAEROBIC Hayley Torres MD 09/26/2024 1702 Drains: [place] drain between left groin to left thigh [...] HPI/Surgical Indications: 49M with history of left IT TELECOM TECHNICIAN-BK popliteal artery bypass graft with PTFE (July [...] the tunnel was milked out. A 0.5 [place] drain was used to maintain patency of [...] MD - 09/27/2024 4:27 PM EST [facility] Operative Note Patient Name: Geovanna Dixon Jr. : [id number] MR#: [id number] Case Date: 09/27/2024 Surgeon: Surgeons and Role: [...] 2nd toe amputation who was transferred from [facility] given concern for infected left [...] 1 week ago. He presented to [facility] on 09/26 and went to the OR [...] management and to provide a review of custodial diabetes care. Glargine 25 units administered this [...] Q8H heparin (porcine) 5,000 Units Subcutaneous Q8H [facility] lidocaine 1 patch Transdermal Q24H Infusions: lactated Ringers 100 mL/hr (09/27/24 5272) sodium chloride 0.9% PRN: potassium chloride ER [...] Cunningham APRN Endocrinology Diabetes Management Service Pager: [phone] Weekends please page [phone] 80 minute visit was spent in counseling [...] 180 days) Any patient receiving care in [place] must abide by [place] law. The hierarchy [...] (i) The agent with financial power of phototypesetter operator or a conservator appointed in accordance [...] In the past 12 months has the [place] [employer], gas, oil, or water [employer] threatened to shut off services in your [...] Current DME: none Home Address confirmed as: [address] [place] [id number] Social & Family Supports: All names listed [...] his home before. Health/Prescription Coverage: Primary Insurance: [employer] MANAGED MEDICARE Payor: [employer] MEDICARE / Plan: [facility] MANAGED MEDICARE PPO / Product Type: *No Product type* / Secondary Insurance: N/A ; Prescription Coverage: Yes Preferred Pharmacy: [facility] - [place], [place] - [address] [facility] [address] [facility] [address] [facility] - [place], [place] [address] [facility] [address] [facility] [address] [facility] [place], [place] - [address] [facility] [address] [facility] [address] [place] Status: Patient is a : No Primary Care Provider confirmed: JUSTIN Roberson [phone] Patient/Caregiver Goals of Treatment: patient will need [...] where referrals are placed. Provided patient with [facility] Star Quality Rating handout. They have requested referrals to: [facility]. [address] [place] [phone] Expected date of discharge: TBD Referral routed to the Access Manager for matching with agency/vendor and to [...] care as indicated. Penny ROSAS RN Phone: [phone] Pager: [phone] * Consult Note - Stacey Thomas MD [...] extremity aching prompting him to go to [facility]. The groin pain dissipated. About a week later on 09/26 he developed left-sided groin pain prompting him to go to [facility] once again. Lab work notable for WBC count of 21, lactic acid 3.6. He underwent evaluation with a CT scan demonstrating an abscess from the left groin operative site the entire left of the graft down by the knee. He was transferred to [facility] for further care and he [...] 3.51) performed by Thony Garcia MD at [facility] MAIN OR PRO BYPASS GRAFT OTHR, FEM-TIBIAL Left 08/01/2024 @BYPASS GRAFT, FEM-ANT TIBIAL, -POST TIBIAL, -PERONEAL, -DP W\ SYNTHETIC CONDUIT (WRVU 23.66) performed by Lisette Maldonado MD at [facility] MAIN OR PRO CABG, ARTERY-VEIN, SINGLE 01/04/2012 @CABG, VENOUS & ARTERIAL GRAFT;SINGLE VEIN GRAFT performed by INNA TOVAR at [facility] MAIN OR PRO ENDOSCOPY W/VIDEO-ASST VEIN HARVEST, CABG 01/04/2012 ENDOSCOPIC HARVEST VEIN(S) FOR CABG performed by INNA TOVAR at [facility] MAIN OR VS ARTERIOGRAM LOWER EXTREMITY VASCULAR SURGERY 07/20/2024 VS Arteriogram Lower Extremity Vascular Surgery 07/20/2024 Anabel Finney MD [facility] INTERVENTIONL RAD Medications: potassium chloride ER (Klor-Con [...] admitted to SICU as a transfer from [facility] for suspected graft infection/sepsis. A/Ox4, [...] MD - 09/26/2024 4:50 PM EST [facility] Operative Note Patient Name: Geovanna Dixon Jr. : [id number] MR#: [id number] Case Date: 09/26/2024 Surgeon: Surgeons and Role: * Hayley Torres MD - Primary * Dolly Dan MD - Resident - Assisting * Ken Moeller MD - Resident - Assisting Preoperative diagnosis: left infected femoral to below knee bypass graft Postoperative diagnosis: left infected femoral to below knee bypass graft Procedure: Explant of infected LEFT IT TELECOM TECHNICIAN to below-knee popliteal artery PTFE bypass graft [...] Indications: 49M with history of a left IT TELECOM TECHNICIAN-BK popliteal artery bypass with PTFE performed in [...] Vascular Surgery History and Physical HPI: Geovanna iDxon Jr. is a 49 y.o. male with a history of HTN, HLD, NSTEMI, CAD s/p CABG (12/2011), DM,obesity, PAD s/p L iliofem endart and L fem-BK pop bypass and L 2nd toe amputation who was transferred from [facility] given concern for infected left [...] 3.51) performed by Thony Garcia MD at [facility] MAIN OR PRO BYPASS GRAFT OTHR, FEM-TIBIAL Left 08/01/2024 @BYPASS GRAFT, FEM-ANT TIBIAL, -POST TIBIAL, -PERONEAL, -DP W\ SYNTHETIC CONDUIT (WRVU 23.66) performed by Lisette Maldonado MD at [facility] MAIN OR PRO CABG, ARTERY-VEIN, SINGLE 01/04/2012 @CABG, VENOUS & ARTERIAL GRAFT;SINGLE VEIN GRAFT performed by INNA TOVAR at [facility] MAIN OR PRO ENDOSCOPY W/VIDEO-ASST VEIN HARVEST, CABG 01/04/2012 ENDOSCOPIC HARVEST VEIN(S) FOR CABG performed by INNA TOVAR at [facility] MAIN OR VS ARTERIOGRAM LOWER EXTREMITY VASCULAR SURGERY 07/20/2024 VS Arteriogram Lower Extremity Vascular Surgery 07/20/2024 Anabel Finney MD [facility] RAD Social Hx: Social History Socioeconomic [...] 3 times daily. Use as instructed Indications: [id number] each 1 FreeStyle Lancets 28 gauge Misc [...] 2nd toe amputation who was transferred from [facility] given concern for infected left [...] PM EST Office [place] [phone] Isabela Hayward APRN [facility] [place] [address] 11/10/2024 10:00 AM EST Office [place] [phone] Dai Whitman APRN 11/21/2024 2:15 PM EST Office [place] [phone] Dayanara Grover MD [facility] [place] [address] Pending Results Name Type Priority Associated Diagnoses [...] 4:49 PM EST Debridement, Skin, Sub-Q Tissue ([id number]) 10/04/2024 3:10 PM EST Status post explant of infected left IT TELECOM TECHNICIAN-BK pop bypass graft DEBRIDEMENT SKIN AND SUBCU, [...] Debridement Muscle And Fascia 20 Sq Cm/< ([id number]) 10/02/2024 1:28 PM EST Infected LLE graft [...] Debridement Muscle And Fascia 20 Sq Cm/< ([id number]) 09/29/2024 2:06 PM EST explanted LLE infected graft Exploration Not Followed By Surg Lower Extremity Artery ([id number]) 09/29/2024 2:06 PM EST explanted LLE infected [...] 10 PM EST Excision, Infec Graft, Extremity ([id number]) 09/28/2024 11:28 AM EST Infected explanted left leg bypass graft Form Skin Pedicle Flap Scalp, Arm, Leg ([id number]) 09/28/2024 11:28 AM EST Infected explanted left leg bypass graft Unlisted Procedure Vascular Surgery ([id number]) 09/28/2024 11:28 AM EST Infected explanted left leg bypass graft Revision Femoral Anast Bpg Groin Open W/Nonautog Patch Graft ([id number]) 09/28/2024 11:28 AM EST Infected explanted left [...] EST I&D Deep Abscess Bursa/Hematoma Thigh/Knee Region (43479) 09/27/2024 3:45 PM EST Infected explanted left leg bypass graft Drain Lower Leg Deep Absc/Hematoma ([id number]) 09/27/2024 3:45 PM EST Infected explanted left leg bypass graft Excision, Infec Graft, Extremity (91066) 09/27/2024 3:45 PM EST Infected explanted left leg bypass graft Debridement, Skin, Sub-Q Tissue (54027) 09/27/2024 3:45 PM EST Infected explanted left [...] EST I&D Deep Abscess Bursa/Hematoma Thigh/Knee Region ([id number]) 09/26/2024 3:52 PM EST left infected femoral to below knee bypass graft Drain Lower Leg Deep Absc/Hematoma ([id number]) 09/26/2024 3:52 PM EST left infected femoral to below knee bypass graft Excision, Infec Graft, Extremity ([id number]) 09/26/2024 3:52 PM EST left infected femoral [...] 1:50 PM EST HELEN complete wo contrast ([id number]) nstemi afib documented in this encounter Results * (ABNORMAL) Comprehensive metabolic panel Non-fasting (10/16/2024) Glucose Lvl - External 124(H) [facility] Blood Urea Nitrogen - External 17 [facility] Creatinine - External 0.9 [facility] EGFR - External 104.05 [facility] Anion Gap - External 11.6(H) [facility] Sodium - External 141 [facility] Potassium - External 4.3 [facility] Chloride - External 103 [facility] CO2 - External 26.4 [facility] Calcium - External 9.0 [facility] Protein, Total - External 6.9 [facility] Albumin - External 3.0(L) [facility] Total Bilirubin - External 0.20 [facility] Alk Phos - External 124(H) [facility] AST (SGOT) - External 12 [facility] ALT (SGPT) - External 22 [facility] Blood VENOUS BLOOD SPECIMEN / Unknown 10/16/2024 Amaya Hernandez MD CHEMISTRY ORDERABLES Performing Organization Address [place]/[facility] Co de Phone Number [address] [place] [phone] * CK (10/16/2024) CK, Total - External 39 [facility] Blood VENOUS BLOOD SPECIMEN / Unknown 10/16/2024 Amaya Hernandez MD CHEMISTRY ORDERABLES Performing Organization Address City/[facility] Co de Phone Number [address] [place], [place] [id number] [place] [address] * (ABNORMAL) CBC (with Diff) (10/16/2024) WBC - External 10.99(H) [facility] RBC - External 3.71(L) [facility] Hemoglobin - External 10.8(L) [facility] Hematocrit - External 33.8(L) [facility] MCV - External 91 [facility] MCH - External 29.1 [facility] MCHC - External 32.0 [facility] RDWCV - External 14.2(H) [facility] Platelets - External 512(H) [facility] MPV - External 9.8 [facility] NRBC % - External 0.0 [facility] NRBC Abs - External 0.0 [facility] Neutrophils % - External 64.2 [facility] Lymphocytes % - External 25.8 [facility] Monocytes % - External 6.8 [facility] Eosinophils % - External 2.0 [facility] Basophils % - External 0.9 [facility] Immature Gran % - External 0.3 [facility] Neutr ABS (ANC) - External 7.06(H) [facility] Lymphocyte ABS - External 2.84 [facility] Monocyte ABS - External 0.75 [facility] Eosinophil ABS - External 0.22 [facility] Basophil ABS - External 0.10 [facility] Blood VENOUS BLOOD SPECIMEN / Unknown 10/16/2024 Amaya Hernandez MD HEMATOLOGY ORDERABLE S [facility] [address] [place], [place] [address] [phone] * POC, GLUCOSE (10/10/2024 4:27 PM EST) [...] O RDERABLES [facility] [place] [address] * POC, GLUCOSE (10/10/2024 11:10 AM EST) Glucometer, POC 174 65 - 199 mg/dL 10/10/2024 11:11 AM EST [facility] Comment:Supplemental ranges: <140 mg/dL before meals <180 mg/dL all other times of the day. Blood CAPILLARY BLOOD / Unknown 10/10/2024 11:10 AM EST 10/10/2024 11:11 AM EST Hayley Torres MD POINT OF CARE TEST O RDERAHERNANDEZ Performing Organization Address City/[facility]/ZIP Co de Phone Number [facility] [place] [address] * POC, GLUCOSE (10/10/2024 7:46 AM EST) Glucometer, POC 141 65 - 199 mg/dL 10/10/2024 7:46 AM EST [facility] Comment:Supplemental ranges: <140 mg/dL before meals <180 mg/dL all other times of the day. Blood CAPILLARY BLOOD / Unknown 10/10/2024 7:46 AM EST 10/10/2024 7:46 AM EST Hayley Torres MD POINT OF CARE TEST O GILDA Performing Organization Address [place]/[facility] Co de Phone Number [facility] [place] [address] * POC, GLUCOSE (10/10/2024 6:11 AM EST) Glucometer, POC 127 65 - 199 mg/dL 10/10/2024 6:11 AM EST [facility] Comment:Supplemental ranges: <140 mg/dL before meals <180 mg/dL all other times of the day. Blood CAPILLARY BLOOD / Unknown 10/10/2024 6:11 AM EST 10/10/2024 6:11 AM EST Hayley Torres MD POINT OF CARE TEST O GILDA Performing Organization Address City/[facility]/ZIP Co de Phone Number [facility] [place] [address] * CK (10/10/2024 12:33 AM EST) Creatine Kinase 32 0 - 200 unit/L 10/10/2024 8:54 AM EST [facility] Blood VENOUS BLOOD SPECIMEN / Unknown Venipuncture / Unknown 10/10/2024 12:33 AM EST 10/10/2024 12:43 AM EST María Kyler Carranza TANK CAR INSPECTOR CHEMISTRY ORDER RANDELL [facility] [place] [address] * (ABNORMAL) CBC (with Diff) (10/10/2024 12:33 AM EST) White Blood Cell 11.57(H) 4.00 - 9.50 x10(3)/mc L 10/10/2024 12:48 AM [facility] Red Blood Cell 3.75(L) 4.58 - 5.54 x10(6)/mc L 10/10/2024 12:48 AM [facility] Hemoglobin 11.1(L) 13.7 - 16.5 [...] ORDERABLE S [facility] [place] [address] * (ABNORMAL) Basic Metabolic Panel (10/10/2024 12:33 [...] 3.5 - 5.0 mMol/L 10/10/2024 1:12 AM [facility] Chloride 103 98 - 107 mMol/L 10/10/2024 1:12 AM [facility] Carbon Dioxide 25 22 - 31 mMol/L 10/10/2024 1:12 AM [facility] Anion Gap 10 5 - 15 mMol/L 10/10/2024 1:12 AM [facility] Calcium [...] Torres MD CHEMISTRY ORDERABLES Performing Organization Address City/[facility]/ZIP Co de Phone Number [facility] [place] [address] * Phosphorus (10/10/2024 12:33 AM EST) Phosphorus 3.8 2.5 - 4.5 mg/dL 10/10/2024 1:12 AM EST [facility] Blood VENOUS BLOOD SPECIMEN / Unknown Venipuncture / Unknown 10/10/2024 12:33 AM EST 10/10/2024 12:43 AM EST Hayley Torres MD CHEMISTRY ORDERABLES Performing Organization Address [place]/[facility] Co de Phone Number [facility] [place] [address] * Magnesium (10/10/2024 12:33 AM EST) Magnesium 0.81 0.69 - 1.07 mMol/L 10/10/2024 1:12 AM EST [facility] Blood VENOUS BLOOD SPECIMEN / Unknown Venipuncture / Unknown 10/10/2024 12:33 AM EST 10/10/2024 12:43 AM EST Hayley Torres MD CHEMISTRY ORDERABLES Performing Organization Address City/[facility] Co de Phone Number [facility] [place] [address] * POC, GLUCOSE (10/10/2024 12:31 AM EST) Glucometer, POC 119 65 - 199 mg/dL 10/10/2024 12:32 AM EST [facility] Comment:Supplemental ranges: <140 mg/dL before meals <180 mg/dL all other times of the day. Blood CAPILLARY BLOOD / Unknown 10/10/2024 12:31 AM EST 10/10/2024 12:32 AM EST Hayley Torres MD POINT OF CARE TEST O GILDA Performing Organization Address City/[facility]/ZIP Co de Phone Number [facility] [place] [address] * POC, GLUCOSE (10/09/2024 8:16 PM EST) Glucometer, POC 104 65 - 199 mg/dL 10/09/2024 8:16 PM EST [facility] Comment:Supplemental ranges: <140 mg/dL before meals <180 mg/dL all other times of the day. Blood CAPILLARY BLOOD / Unknown 10/09/2024 8:16 PM EST 10/09/2024 8:16 PM EST Hayley Torres MD POINT OF CARE TEST O GILDA Performing Organization Address [place]/[facility] Co de Phone Number [facility] [place] [address] * POC, GLUCOSE (10/09/2024 3:57 PM EST) Glucometer, POC 120 65 - 199 mg/dL 10/09/2024 3:57 PM EST [facility] Comment:Supplemental ranges: <140 mg/dL before meals <180 mg/dL all other times of the day. Blood CAPILLARY BLOOD / Unknown 10/09/2024 3:57 PM EST 10/09/2024 3:57 PM EST Hayley Torres MD POINT OF CARE TEST O GILDA Performing Organization Address City/[facility]/ZIP Co de Phone Number [facility] [place] [address] * Place PICC Line: Contact Vascular Access Page [phone] Extremity to exclude: No restrictions; Is PICC [...] to the planned procedure. Hand Hygiene: The computer systems engineer did perform hand hygiene prior to line insertion. Catheter type: PICC Lot number: [id number] Procedure Technique: Skin was prepped with chlorhexidine. [...] Team) (10/09/2024 1:55 PM EST) WORKSTATION ID [id number] RAD Anatomical Region Laterality Modality N/A Radio [...] who have questions please contact the health field care advocate that requested your imaging first. ? Electronically signed by: Terell Salvador MD, [facility] ([phone]), at 10/09/2024 3:30 PM Narrative 10/09/2024 3:30 [...] patients who have questions please contactthe health field care advocate that requested your imaging first. Electronically signed by: Terell Salvador MD, [facility]([phone]), at 10/09/2024 3:30 PM María Carranza APRN [...] O RDERABLES [facility] [place] [address] * (ABNORMAL) POC, GLUCOSE (10/09/2024 7:35 AM EST) Glucometer, POC 215(H) 65 - 199 mg/dL 10/09/2024 7:36 AM EST [facility] Comment:Supplemental ranges: <140 mg/dL before meals <180 mg/dL all other times of the day. Blood CAPILLARY BLOOD / Unknown 10/09/2024 7:35 AM EST 10/09/2024 7:36 AM EST Hayley Torres MD POINT OF CARE TEST O GILDA Performing Organization Address City/[facility] Co de Phone Number [facility] [place] [address] * POC, GLUCOSE (10/09/2024 4:26 AM EST) Glucometer, POC 175 65 - 199 mg/dL 10/09/2024 4:26 AM EST [facility] Comment:Supplemental ranges: <140 mg/dL before meals <180 mg/dL all other times of the day. Blood CAPILLARY BLOOD / Unknown 10/09/2024 4:26 AM EST 10/09/2024 4:26 AM EST Hayley Torres MD POINT OF CARE TEST O GILDA Performing Organization Address [place]/[facility] Co de Phone Number [facility] [place] [address] * (ABNORMAL) CBC (with Diff) (10/09/2024 12:45 [...] 0.40 x10(3)/mc L 10/09/2024 1:31 AM EST [facility] Basophil % 1.1 % 10/09/2024 1:31 AM [facility] Baso Absolute 0.12(H) 0.00 - 0.10 x10(3)/mc L 10/09/2024 1:31 AM [facility] Immature Gran % 0.6 % 1:31 AM [facility] Immature Gran Absolute 0.07(H) 0.00 - 0.04 x10(3)/mc L 10/09/2024 1:31 AM [facility] Blood VENOUS BLOOD SPECIMEN / Unknown Venipuncture / Unknown 10/09/2024 12:45 AM EST 10/09/2024 1:27 AM EST Hayley Torres MD HEMATOLOGY ORDERABLE S Performing Organization Address City/State/[facility] Co de Phone Number [facility] [place] [address] * (ABNORMAL) Basic Metabolic Panel (10/09/2024 12:45 [...] - 31 mMol/L 10/09/2024 1:54 AM EST [facility] Anion Gap 12 5 - 15 mMol/L 10/09/2024 1:54 AM EST [facility] Calcium 9.4 8.5 - 10.5 mg/dL 10/09/2024 1:54 AM EST [facility] Est Glomerular Filtration Rate - Male 122 mL/min/1. 73 m?? 10/09/2024 1:54 AM EST [facility] CHEMISTRY ORDERABLES [facility] [place] [address] * Phosphorus (10/09/2024 12:45 AM EST) Phosphorus 3.9 2.5 - 4.5 mg/dL 10/09/2024 1:54 AM EST [facility] Blood VENOUS BLOOD SPECIMEN / Unknown Venipuncture / Unknown 10/09/2024 12:45 AM EST 10/09/2024 1:27 AM EST Hayley Torres MD CHEMISTRY ORDERABLES [facility] [place] [address] * Magnesium (10/09/2024 12:45 AM EST) Magnesium 0.80 0.69 - 1.07 mMol/L 10/09/2024 1:54 AM EST [facility] Blood VENOUS BLOOD SPECIMEN / Unknown Venipuncture / Unknown 10/09/2024 12:45 AM EST 10/09/2024 1:27 AM EST Hayley Torres MD CHEMISTRY ORDERABLES Performing Organization Address City/[facility] Co de Phone Number [facility] [place] [address] * POC, GLUCOSE (10/09/2024 12:11 AM EST) Glucometer, POC 157 65 - 199 mg/dL 10/09/2024 12:11 AM EST [facility] Comment:Supplemental ranges: <140 mg/dL before meals <180 mg/dL all other times of the day. Blood CAPILLARY BLOOD / Unknown 10/09/2024 12:11 AM EST 10/09/2024 12:11 AM EST Hayley Torres MD POINT OF CARE TEST O RDERABLES Performing Organization Address [place]/[facility] Co de Phone Number [facility] [place] [address] * POC, GLUCOSE (10/08/2024 7:25 PM EST) [...] [facility]/ZIP Co de Phone Number [facility] [place] [address] * POC, GLUCOSE (10/08/2024 5:54 PM EST) [...] O GILDA [facility] [place] [address] * (ABNORMAL) POC, GLUCOSE (10/08/2024 4:08 PM EST) Glucometer, POC 281(H) 65 - 199 mg/dL 10/08/2024 4:08 PM EST [facility] Comment:Supplemental ranges: <140 mg/dL before meals <180 mg/dL all other times of the day. Blood CAPILLARY BLOOD / Unknown 10/08/2024 4:08 PM EST 10/08/2024 4:09 PM EST Hayley Torres MD POINT OF CARE TEST Stephanie VO [facility] [place] [address] * POC, GLUCOSE (10/08/2024 12:44 PM EST) Glucometer, POC 146 65 - 199 mg/dL 10/08/2024 12:44 PM EST [facility] Comment:Supplemental ranges: <140 mg/dL before meals <180 mg/dL all other times of the day. Blood CAPILLARY BLOOD / Unknown 10/08/2024 12:44 PM EST 10/08/2024 12:44 PM EST Hayley Torres MD POINT OF CARE TEST O GILDA Performing Organization Address [place]/[facility] de Phone Number [facility] [place] [address] * POC, GLUCOSE (10/08/2024 8:30 AM EST) Glucometer, POC 172 65 - 199 mg/dL 10/08/2024 8:30 AM EST [facility] Comment:Supplemental ranges: <140 mg/dL before meals <180 mg/dL all other times of the day. Blood CAPILLARY BLOOD / Unknown 10/08/2024 8:30 AM EST 10/08/2024 8:30 AM EST Hayley Torres MD POINT OF CARE TEST O GILDA Performing Organization Address [place]/[facility] de Phone Number [facility] [place] [address] * Vancomycin Level, Random (10/08/2024 5:59 AM EST) Vancomycin, Random 6.8 mg/L 2023 7:58 AM EST [facility] Comment:This level is for de termination of the patient's vancomycin ycrj-dpaur-ear-curve (AUC) value. Contact the inpatient pharmacy for interpretation. Blood VENOUS BLOOD SPECIMEN / Unknown Venipuncture / Unknown 10/08/2024 5:59 AM EST 10/08/2024 7:29 AM EST Hayley Torres MD CHEMISTRY ORDERABLES Performing Organization Address [place]/[facility] Co de Phone Number [facility] [place] [address] * POC, GLUCOSE (10/08/2024 4:02 AM EST) Glucometer, POC 163 65 - 199 mg/dL 10/08/2024 4:02 AM EST [facility] Comment:Supplemental ranges: <140 mg/dL before meals <180 mg/dL all other times of the day. Blood CAPILLARY BLOOD / Unknown 10/08/2024 4:02 AM EST 10/08/2024 4:02 AM EST Hayley Trores MD POINT OF CARE TEST O RDERABLES [facility] [place] [address] * (ABNORMAL) CBC (with Diff) (10/08/2024 12:08 AM EST) White Blood Cell 10.35(H) 4.00 - 9.50 x10(3)/mc L 10/08/2024 12:29 AM [facility] Red Blood Cell 3.53(L) 4.58 - 5.54 x10(6)/mc L 10/08/2024 12:29 AM [facility] Hemoglobin 10.2(L) 13.7 - 16.5 [...] ORDERABLE S [facility] [place] [address] * (ABNORMAL) Basic Metabolic Panel (10/08/2024 12:08 [...] CHEMISTRY ORDERABLES [facility] [place] [address] * Phosphorus (10/08/2024 12:08 AM EST) Phosphorus 3.4 2.5 - 4.5 mg/dL 10/08/2024 12:50 AM EST [facility] Blood VENOUS BLOOD SPECIMEN / Unknown Venipuncture / Unknown 10/08/2024 12:08 AM EST 10/08/2024 12:23 AM EST Hayley Torres MD CHEMISTRY ORDERABLES Performing Organization Address City/[facility]/ZIP Co de Phone Number [facility] [place] [address] * Magnesium (10/08/2024 12:08 AM EST) Magnesium 0.85 0.69 - 1.07 mMol/L 10/08/2024 12:50 AM EST [facility] Blood VENOUS BLOOD SPECIMEN / Unknown Venipuncture / Unknown 10/08/2024 12:08 AM EST 10/08/2024 12:23 AM EST Hayley Torres MD CHEMISTRY ORDERABLES Performing Organization Address City/[facility] Co de Phone Number [facility] [place] [address] * CK (10/08/2024 12:08 AM EST) Creatine Kinase 24 0 - 200 unit/L 10/08/2024 12:50 AM EST [facility] Blood VENOUS BLOOD SPECIMEN / Unknown Venipuncture / Unknown 10/08/2024 12:08 AM EST 10/08/2024 12:23 AM EST Hayley Torres MD CHEMISTRY ORDERABLES Performing Organization Address City/[facility]/ZIP Co de Phone Number [facility] [place] [address] * POC, GLUCOSE (10/08/2024 12:05 AM EST) [...] [facility]/ZIP Co de Phone Number [facility] [place] [address] * POC, GLUCOSE (10/07/2024 8:29 PM EST) [...] O RDERABLES [facility] [place] [address] * POC, GLUCOSE (10/07/2024 4:33 PM EST) Glucometer, POC 129 65 - 199 mg/dL 10/07/2024 4:33 PM EST [facility] Comment:Supplemental ranges: <140 mg/dL before meals <180 mg/dL all other times of the day. Blood CAPILLARY BLOOD / Unknown 10/07/2024 4:33 PM EST 10/07/2024 4:34 PM EST Hayley Torres MD POINT OF CARE TEST O GILDA Performing Organization Address [place]/[facility] de Phone Number [facility] [place] [address] * (ABNORMAL) POC, GLUCOSE (10/07/2024 10:58 AM EST) Glucometer, POC 221(H) 65 - 199 mg/dL 10/07/2024 10:59 AM EST [facility] Comment:Supplemental ranges: <140 mg/dL before meals <180 mg/dL all other times of the day. Blood CAPILLARY BLOOD / Unknown 10/07/2024 10:58 AM EST 10/07/2024 10:59 AM EST Hayley Torres MD POINT OF CARE TEST O GILDA Performing Organization Address [place]/[facility] Phone Number [facility] [place] [address] * (ABNORMAL) POC, GLUCOSE (10/07/2024 7:42 AM EST) Glucometer, POC 201(H) 65 - 199 mg/dL 10/07/2024 7:42 AM EST [facility] Comment:Supplemental ranges: <140 mg/dL before meals <180 mg/dL all other times of the day. Blood CAPILLARY BLOOD / Unknown 10/07/2024 7:42 AM EST 10/07/2024 7:43 AM EST Hayley Torres MD POINT OF CARE TEST O GILDA Performing Organization Address [place]/[facility] Co de Phone Number [facility] [place] [address] * POC, GLUCOSE (10/07/2024 3:58 AM EST) Glucometer, POC 150 65 - 199 mg/dL 10/07/2024 3:58 AM [facility] Comment:Supplemental ranges: <140 mg/dL before meals <180 mg/dL all other times of the day. Blood CAPILLARY BLOOD / Unknown 10/07/2024 3:58 AM EST 10/07/2024 3:58 AM EST Hayley Torres MD POINT OF CARE TEST O RDERABLES [facility] [place] [address] * (ABNORMAL) CBC (with Diff) (10/07/2024 12:06 AM EST) [facility] White Blood Cell 11.27(H) 4.00 - 9.50 x10(3)/mc L 10/07/2024 12:19 AM [facility] Red Blood Cell 3.47(L) 4.58 [...] ORDERABLE S [facility] [place] [address] * (ABNORMAL) Basic Metabolic Panel (10/07/2024 12:06 [...] CHEMISTRY ORDERABLES [facility] [place] [address] * Phosphorus (10/07/2024 12:06 AM EST) Phosphorus 4.2 2.5 - 4.5 mg/dL 10/07/2024 12:40 AM EST [facility] Blood VENOUS BLOOD SPECIMEN / Unknown Venipuncture / Unknown 10/07/2024 12:06 AM EST 10/07/2024 12:11 AM EST Hayley Torres MD CHEMISTRY ORDERABLES [facility] [place] [address] * Magnesium (10/07/2024 12:06 AM EST) Magnesium 0.85 0.69 - 1.07 mMol/L 10/07/2024 12:40 AM EST [facility] Blood VENOUS BLOOD SPECIMEN / Unknown Venipuncture / Unknown 10/07/2024 12:06 AM EST 10/07/2024 12:11 AM EST Hayley Torres MD CHEMISTRY ORDERABLES Performing Organization Address [place]/[facility] Co de Phone Number [facility] [place] [address] * POC, GLUCOSE (10/07/2024 12:04 AM EST) Glucometer, POC 149 65 - 199 mg/dL 10/07/2024 12:04 AM EST [facility] Comment:Supplemental ranges: <140 mg/dL before meals <180 mg/dL all other times of the day. Blood CAPILLARY BLOOD / Unknown 10/07/2024 12:04 AM EST 10/07/2024 12:05 AM EST Hayley Torres MD POINT OF CARE TEST O RDERABLES Performing Organization Address [place]/[facility] Co de Phone Number [facility] [place] [address] * POC, GLUCOSE (10/06/2024 7:24 PM EST) Glucometer, POC 151 65 - 199 mg/dL 10/06/2024 7:24 PM EST [facility] Comment:Supplemental ranges: <140 mg/dL before meals <180 mg/dL all other times of the day. Blood CAPILLARY BLOOD / Unknown 10/06/2024 7:24 PM EST 10/06/2024 7:24 PM EST Hayley Torres MD POINT OF CARE TEST O GILDA Performing Organization Address City/[facility] Co de Phone Number [facility] [place] [address] * POC, GLUCOSE (10/06/2024 5:32 PM EST) [...] O RDERABLES [facility] [place] [address] * XR PICC Placement Over 5 Years with Imaging Guidance (IV Team) (10/06/2024 3:04 PM EST) [employer] Signature WORKSTATION ID [id number] RAD Anatomical Region Laterality Modality N/A Radio [...] who have questions please contact the health field care advocate that requested your imaging first. ? Electronically signed by: Charles Hamilton MD, [facility] ??([phone]), at 10/06/2024 3:43 PM Narrative 10/06/2024 3:43 [...] patients who have questions please contactthe health field care advocate that requested your imaging first. Electronically signed by: Charles Hamilton MD, [facility]([phone]), at 10/06/2024 3:43 PM Hayley Torres MD IMG FLUORO ORDERABLE S * Place PICC Line: Contact Vascular Access Page [phone] Extremity to exclude: No restrictions; Is PICC [...] to the planned procedure. Hand Hygiene: The computer systems engineer did perform hand hygiene prior to line insertion. Catheter type: PICC Lot number: [id number] Procedure Technique: Skin was prepped with chlorhexidine. [...] * POC, GLUCOSE (10/06/2024 12:12 PM EST) [facility] Signature Glucometer, POC 137 65 - 199 mg/dL 10/06/2024 12:12 PM EST [facility] Comment:Supplemental ranges: <140 mg/dL before meals <180 mg/dL all other times of the day. Blood CAPILLARY BLOOD / Unknown 10/06/2024 12:12 PM EST 10/06/2024 12:12 PM EST Hayley Torres MD POINT OF CARE TEST O RDERABLES [facility] [place] [address] * (ABNORMAL) POC, GLUCOSE (10/06/2024 7:34 AM EST) Glucometer, POC 209(H) 65 - 199 mg/dL 10/06/2024 7:34 AM EST [facility] Comment:Supplemental ranges: <140 mg/dL before meals <180 mg/dL all other times of the day. Blood CAPILLARY BLOOD / Unknown 10/06/2024 7:34 AM EST 10/06/2024 7:34 AM EST Hayley Torres MD POINT OF CARE TEST O GILDA Performing Organization Address City/[facility]/ZIP Co de Phone Number [facility] [place] [address] * POC, GLUCOSE (10/06/2024 3:29 AM EST) Glucometer, POC 151 65 - 199 mg/dL 10/06/2024 3:29 AM EST [facility] Comment:Supplemental ranges: <140 mg/dL before meals <180 mg/dL all other times of the day. Blood CAPILLARY BLOOD / Unknown 10/06/2024 3:29 AM EST 10/06/2024 3:29 AM EST Hayley Torres MD POINT OF CARE TEST O GILDA Performing Organization Address City/[facility]/ZIP Co de Phone Number [facility] [place] [address] * Vancomycin Level, Random (10/06/2024 12:03 AM EST) Vancomycin, Random 20.5 mg/L 2023 9:00 AM EST [facility] Comment:This level is for de termination of the patient's vancomycin vhtw-zwtmd-gcn-curve (AUC) value. Contact the inpatient pharmacy for interpretation. Blood VENOUS BLOOD SPECIMEN / Unknown Venipuncture / Unknown 10/06/2024 12:03 AM EST 10/06/2024 12:15 AM EST Hayley Torres MD CHEMISTRY ORDERABLES [facility] [place] [address] * (ABNORMAL) CBC (with Diff) (10/06/2024 12:03 [...] 40.5 - 48.5 % 10/06/2024 12:19 AM [facility] Mean Cell Volume 88.5 82.9 [...] ORDERABLE S [facility] [place] [address] * Basic Metabolic Panel (10/06/2024 12:03 AM [...] CHEMISTRY ORDERABLES [facility] [place] [address] * Phosphorus (10/06/2024 12:03 AM EST) Phosphorus 4.3 2.5 - 4.5 mg/dL 10/06/2024 12:44 AM EST [facility] Blood VENOUS BLOOD SPECIMEN / Unknown Venipuncture / Unknown 10/06/2024 12:03 AM EST 10/06/2024 12:15 AM EST Hayley Torres MD CHEMISTRY ORDERABLES Performing Organization Address City/[facility]/ZIP Co de Phone Number [facility] [place] [address] * Magnesium (10/06/2024 12:03 AM EST) Magnesium 0.83 0.69 - 1.07 mMol/L 10/06/2024 12:44 AM EST [facility] Blood VENOUS BLOOD SPECIMEN / Unknown Venipuncture / Unknown 10/06/2024 12:03 AM EST 10/06/2024 12:15 AM EST Hayley Torres MD CHEMISTRY ORDERABLES [facility] [place] [address] * POC, GLUCOSE (10/06/2024 12:02 AM EST) Glucometer, POC 98 65 - 199 mg/dL 10/06/2024 12:02 AM EST [facility] Comment:Supplemental ranges: <140 mg/dL before meals <180 mg/dL all other times of the day. Blood CAPILLARY BLOOD / Unknown 10/06/2024 12:02 AM EST 10/06/2024 12:02 AM EST Hayley Torres MD POINT OF CARE TEST O GILDA Performing Organization Address City/[facility]/ZIP Co de Phone Number [facility] [place] [address] * POC, GLUCOSE (10/05/2024 7:22 PM EST) Glucometer, POC 186 65 - 199 mg/dL 10/05/2024 7:23 PM EST [facility] Comment:Supplemental ranges: <140 mg/dL before meals <180 mg/dL all other times of the day. Blood CAPILLARY BLOOD / Unknown 10/05/2024 7:22 PM EST 10/05/2024 7:23 PM EST Hayley Torres MD POINT OF CARE TEST O IGLDA Performing Organization Address [place]/[facility]/ZIP Co de Phone Number [facility] [place] [address] * POC, GLUCOSE (10/05/2024 5:35 PM EST) [...] O GILDA [facility] [place] [address] * POC, GLUCOSE (10/05/2024 3:57 PM EST) Glucometer, POC 141 65 - 199 mg/dL 10/05/2024 3:57 PM EST [facility] Comment:Supplemental ranges: <140 mg/dL before meals <180 mg/dL all other times of the day. Blood CAPILLARY BLOOD / Unknown 10/05/2024 3:57 PM EST 10/05/2024 3:57 PM EST Hayley Torres MD POINT OF CARE TEST O GILDA Performing Organization Address City/[facility]/ZIP Co de Phone Number [facility] [place] [address] * POC, GLUCOSE (10/05/2024 11:50 AM EST) Glucometer, POC 134 65 - 199 mg/dL 10/05/2024 11:50 AM EST [facility] Comment:Supplemental ranges: <140 mg/dL before meals <180 mg/dL all other times of the day. Blood CAPILLARY BLOOD / Unknown 10/05/2024 11:50 AM EST 10/05/2024 11:50 AM EST Hayley Torres MD POINT OF CARE TEST O GILDA Performing Organization Address [place]/[facility] Co de Phone Number [facility] [place] [address] * POC, GLUCOSE (10/05/2024 7:51 AM EST) Glucometer, POC 114 65 - 199 mg/dL 10/05/2024 7:51 AM EST [facility] Comment:Supplemental ranges: <140 mg/dL before meals <180 mg/dL all other times of the day. Blood CAPILLARY BLOOD / Unknown 10/05/2024 7:51 AM EST 10/05/2024 7:51 AM EST Hayley Torres MD POINT OF CARE TEST O GILDA Performing Organization Address City/[facility]/ZIP Co de Phone Number [facility] [place] [address] * POC, GLUCOSE (10/05/2024 4:18 AM EST) Pathologist [facility] Glucometer, POC 147 65 - 199 mg/dL 10/05/2024 4:18 AM EST [facility] Comment:Supplemental ranges: <140 mg/dL before meals <180 mg/dL all other times of the day. Blood CAPILLARY BLOOD / Unknown 10/05/2024 4:18 AM EST 10/05/2024 4:18 AM EST Hayley Torres MD POINT OF CARE TEST O RDERABLES [facility] [place] [address] * (ABNORMAL) CBC (with Diff) (10/04/2024 11:50 PM EST) [facility] White Blood Cell 12.73(H) 4.00 - 9.50 x10(3)/mc L 10/05/2024 12:10 AM [facility] Red Blood Cell 3.45(L) 4.58 [...] - 3.20 x10(3)/mc L 10/05/2024 12:10 AM [facility] Monocyte % 5.5 % 10/05/2024 [...] ORDERABLE S [facility] [place] [address] * (ABNORMAL) Basic Metabolic Panel (10/04/2024 11:50 [...] mL/min/1. 73 m?? 10/05/2024 12:35 AM EST [facility] Torres MD CHEMISTRY ORDERABLES Performing Organization Address City/[facility]/ZIP Co de Phone Number [facility] [place] [address] * Phosphorus (10/04/2024 11:50 PM EST) Phosphorus 4.2 2.5 - 4.5 mg/dL 10/05/2024 12:35 AM EST [facility] Blood VENOUS BLOOD SPECIMEN / Unknown Venipuncture / Unknown 10/04/2024 11:50 PM EST 10/05/2024 12:03 AM EST Hayley Torres MD CHEMISTRY ORDERABLES [facility] [place] [address] * Magnesium (10/04/2024 11:50 PM EST) Magnesium 0.89 0.69 - 1.07 mMol/L 10/05/2024 12:35 AM EST [facility] Blood VENOUS BLOOD SPECIMEN / Unknown Venipuncture / Unknown 10/04/2024 11:50 PM EST 10/05/2024 12:03 AM EST Hayley Torres MD CHEMISTRY ORDERABLES Performing Organization Address [place]/[facility] Co de Phone Number [facility] [place] [address] * POC, GLUCOSE (10/04/2024 11:36 PM EST) Glucometer, POC 121 65 - 199 mg/dL 10/04/2024 11:36 PM EST [facility] Comment:Supplemental ranges: <140 mg/dL before meals <180 mg/dL all other times of the day. Blood CAPILLARY BLOOD / Unknown 10/04/2024 11:36 PM EST 10/04/2024 11:36 PM EST Hayley Torres MD POINT OF CARE TEST O RDERABLES Performing Organization Address [facility] de Phone Number [facility] [place] [address] * POC, GLUCOSE (10/04/2024 7:32 PM EST) Glucometer, POC 163 65 - 199 mg/dL 10/04/2024 7:32 PM EST [facility] Comment:Supplemental ranges: <140 mg/dL before meals <180 mg/dL all other times of the day. Blood CAPILLARY BLOOD / Unknown 10/04/2024 7:32 PM EST 10/04/2024 7:32 PM EST Hayley Torres MD POINT OF CARE TEST O GILDA Performing Organization Address [place]/[facility] Co de Phone Number [facility] [place] [address] * EKG 12 Lead (10/04/2024 7:14 PM EST) Ventricular rate 81 BPM MUSE SYSTEM Atrial Rate 81 BPM MUSE SYSTEM P-R Interval 174 ms MUSE SYSTEM QRS Duration 112 ms MUSE SYSTEM Q-T Interval 422 ms MUSE SYSTEM QTC Calculated (Bezet) 490 ms MUSE SYSTEM Calculated P [place] 34 degrees MUSE SYSTEM Calculated R [place] 11 degrees MUSE SYSTEM Calculated T [place] 59 degrees MUSE SYSTEM INTERPRETATION Normal sinus rhythm Cannot rule out Inferior infarct , age undetermined Nonspecific T wave abnormality Borderline ECG When compared with ECG of 29-MAY-2024 14:51, Nonspecific T wave abnormality now evident in Lateral leads Confirmed by MD Robert, Deandre Guadarrama ([id number]) on 10/05/2024 3:35:42 PM MUSE SYSTEM 10/04/2024 [...] CARE TEST O RDERABLES Performing Organization Address [place]/[facility]/ZIP Co de Phone Number [facility] [place] [address] * POC, GLUCOSE (10/04/2024 4:49 PM EST) Glucometer, POC 70 65 - 199 mg/dL 10/04/2024 4:50 PM EST [facility] Comment:Supplemental ranges: <140 mg/dL before meals <180 mg/dL all other times of the day. Blood CAPILLARY BLOOD / Unknown 10/04/2024 4:49 PM EST 10/04/2024 4:50 PM EST Hayley Torres MD POINT OF CARE TEST O RDERAHERNANDEZ Performing Organization Address City/[facility]/ZIP Co de Phone Number [facility] [place] [address] * POC, GLUCOSE (10/04/2024 11:49 AM EST) Glucometer, POC 93 65 - 199 mg/dL 10/04/2024 11:49 AM EST [facility] Comment:Supplemental ranges: <140 mg/dL before meals <180 mg/dL all other times of the day. Blood CAPILLARY BLOOD / Unknown 10/04/2024 11:49 AM EST 10/04/2024 11:49 AM EST Hayley Torres MD POINT OF CARE TEST O RDERABLES Performing Organization Address [place]/[facility] Co de Phone Number [facility] [place] [address] * Vancomycin, trough (10/04/2024 7:53 AM EST) [facility] Vancomycin, Trough 19.8 10.0 - 20.0 mg/L 10/04/2024 9:16 AM EST [facility] Comment: Varies according to infection source. Blood VENOUS BLOOD SPECIMEN / Unknown Venipuncture / Unknown 10/04/2024 7:53 AM EST 10/04/2024 8:11 AM EST Hayley Torres MD CHEMISTRY ORDERABLES Performing Organization Address [place]/[facility] Co de Phone Number [facility] [place] [address] * POC, GLUCOSE (10/04/2024 7:51 AM EST) [...] [facility]/ZIP Co de Phone Number [facility] [place] [address] * POC, GLUCOSE (10/04/2024 3:53 AM EST) Pathologist [facility] Glucometer, POC 90 65 - 199 mg/dL 10/04/2024 3:53 AM EST [facility] Comment:Supplemental ranges: <140 mg/dL before meals <180 mg/dL all other times of the day. Blood CAPILLARY BLOOD / Unknown 10/04/2024 3:53 AM EST 10/04/2024 3:53 AM EST Hayley Torres MD POINT OF CARE TEST O RDERABLES [facility] [place] [address] * (ABNORMAL) CBC (with Diff) (10/04/2024 12:08 AM EST) [facility] White Blood Cell 12.58(H) 4.00 - [...] ORDERABLE S [facility] [place] [address] * (ABNORMAL) Basic Metabolic Panel (10/04/2024 12:08 [...] mL/min/1. 73 m?? 10/04/2024 12:53 AM EST [facility] CHEMISTRY ORDERABLES [facility] [place] [address] * Phosphorus (10/04/2024 12:08 AM EST) Phosphorus 3.7 2.5 - 4.5 mg/dL 10/04/2024 12:53 AM EST [facility] Blood VENOUS BLOOD SPECIMEN / Unknown Venipuncture / Unknown 10/04/2024 12:08 AM EST 10/04/2024 12:15 AM EST Hayley Torres MD CHEMISTRY ORDERABLES [facility] [place] [address] * Magnesium (10/04/2024 12:08 AM EST) Magnesium 0.89 0.69 - 1.07 mMol/L 10/04/2024 12:53 AM EST [facility] Blood VENOUS BLOOD SPECIMEN / Unknown Venipuncture / Unknown 10/04/2024 12:08 AM EST 10/04/2024 12:15 AM EST Hayley Torres MD CHEMISTRY ORDERABLES Performing Organization Address [place]/[facility] Co de Phone Number [facility] [place] [address] * POC, GLUCOSE (10/04/2024 12:01 AM EST) Glucometer, POC 132 65 - 199 mg/dL 10/04/2024 12:02 AM EST [facility] Comment:Supplemental ranges: <140 mg/dL before meals <180 mg/dL all other times of the day. Blood CAPILLARY BLOOD / Unknown 10/04/2024 12:01 AM EST 10/04/2024 12:02 AM EST Hayley Torres MD POINT OF CARE TEST O RDERABLES Performing Organization Address [place]/[facility] Co de Phone Number [facility] [place] [address] * POC, GLUCOSE (10/03/2024 7:56 PM EST) Glucometer, POC 123 65 - 199 mg/dL 10/03/2024 7:56 PM EST [facility] Comment:Supplemental ranges: <140 mg/dL before meals <180 mg/dL all other times of the day. Blood CAPILLARY BLOOD / Unknown 10/03/2024 7:56 PM EST 10/03/2024 7:57 PM EST Hayley Torres MD POINT OF CARE TEST O RDERAHERNANDEZ Performing Organization Address City/[facility] Co de Phone Number [facility] [place] [address] * POC, GLUCOSE (10/03/2024 5:29 PM EST) Glucometer, POC 182 65 - 199 mg/dL 10/03/2024 5:30 PM EST [facility] Comment:Supplemental ranges: <140 mg/dL before meals <180 mg/dL all other times of the day. Blood CAPILLARY BLOOD / Unknown 10/03/2024 5:29 PM EST 10/03/2024 5:30 PM EST Hayley Torres MD POINT OF CARE TEST O RDTYESHA Performing Organization Address City/[facility]/ZIP Co de Phone Number [facility] [place] [address] * POC, GLUCOSE (10/03/2024 12:54 PM EST) Glucometer, POC 128 65 - 199 mg/dL 10/03/2024 12:54 PM EST [facility] Comment:Supplemental ranges: <140 mg/dL before meals <180 mg/dL all other times of the day. Blood CAPILLARY BLOOD / Unknown 10/03/2024 12:54 PM EST 10/03/2024 12:54 PM EST Hayley Torres MD POINT OF CARE TEST O GILDA Performing Organization Address [place]/[facility] Co de Phone Number [facility] [place] [address] * POC, GLUCOSE (10/03/2024 7:59 AM EST) Glucometer, POC 115 65 - 199 mg/dL 10/03/2024 7:59 AM EST [facility] Comment:Supplemental ranges: <140 mg/dL before meals <180 mg/dL all other times of the day. Blood CAPILLARY BLOOD / Unknown 10/03/2024 7:59 AM EST 10/03/2024 7:59 AM EST Hayley Torres MD POINT OF CARE TEST O RDTYESHA Performing Organization Address City/[facility]/ZIP Co de Phone Number [facility] [place] [address] * POC, GLUCOSE (10/03/2024 5:32 AM EST) Glucometer, POC 119 65 - 199 mg/dL 10/03/2024 5:32 AM EST [facility] Comment:Supplemental ranges: <140 mg/dL before meals <180 mg/dL all other times of the day. Blood CAPILLARY BLOOD / Unknown 10/03/2024 5:32 AM EST 10/03/2024 5:32 AM EST Hayley Torres MD POINT OF CARE TEST O GILDA Performing Organization Address City/[facility] Co de Phone Number [facility] [place] [address] * POC, GLUCOSE (10/03/2024 4:16 AM EST) Glucometer, POC 152 65 - 199 mg/dL 10/03/2024 4:17 AM EST [facility] Comment:Supplemental ranges: <140 mg/dL before meals <180 mg/dL all other times of the day. Blood CAPILLARY BLOOD / Unknown 10/03/2024 4:16 AM EST 10/03/2024 4:17 AM EST Hayley Torres MD POINT OF CARE TEST O GILDA Performing Organization Address [place]/[facility] Co de Phone Number [facility] [place] [address] * (ABNORMAL) POC, GLUCOSE (10/03/2024 2:02 AM EST) Glucometer, POC 225(H) 65 - 199 mg/dL 10/03/2024 2:02 AM EST [facility] Comment:Supplemental ranges: <140 mg/dL before meals <180 mg/dL all other times of the day. Blood CAPILLARY BLOOD / Unknown 10/03/2024 2:02 AM EST 10/03/2024 2:02 AM EST Hayley Torres MD POINT OF CARE TEST O GILDA Performing Organization Address City/[facility]/ZIP Co de Phone Number [facility] [place] [address] * (ABNORMAL) CBC (with Diff) (10/03/2024 12:27 AM EST) [facility] White Blood Cell 15.33(H) 4.00 - [...] 3.20 x10(3)/mc L 10/03/2024 12:51 AM EST [facility] Monocyte % 2.9 % 10/03/2024 12:51 AM [facility] Monocyte Absolute 0.45 0.30 - 0.90 x10(3)/mc L 10/03/2024 12:51 AM [facility] Eos % 0.5 % 10/03/2024 12:51 AM [facility] Eos Absolute 0.07 0.00 - 0.40 x10(3)/mc L 10/03/2024 12:51 AM EST [facility] Basophil % 0.4 % 10/03/2024 12:51 AM [facility] Baso Absolute 0.06 0.00 - 0.10 x10(3)/mc L 10/03/2024 12:51 AM EST [facility] Immature Gran % 5.7 % 12:51 AM [facility] Immature Gran Absolute 0.87(H) 0.00 - 0.04 x10(3)/mc L 10/03/2024 12:51 AM EST [facility] Blood VENOUS BLOOD SPECIMEN / Unknown Venipuncture / Unknown 10/03/2024 12:27 AM EST 10/03/2024 12:47 AM EST Hayley Torres MD HEMATOLOGY ORDERABLE S [facility] [place] [address] * (ABNORMAL) Basic Metabolic Panel (10/03/2024 12:27 AM [facility]) Glucose 208(H) 65 - 199 mg/dL 10/03/2024 [...] 5 - 15 mMol/L 10/03/2024 1:14 AM [facility] Calcium 8.4(L) 8.5 - 10.5 mg/dL 10/03/2024 1:14 AM [facility] Est Glomerular Filtration Rate - Male 124 mL/min/1. 73 m?? 10/03/2024 1:14 AM [facility] Comment: [...] Torres MD CHEMISTRY ORDERABLES Performing Organization Address [place]/[facility] Co de Phone Number [facility] [place] [address] * Phosphorus (10/03/2024 12:27 AM EST) Phosphorus 3.5 2.5 - 4.5 mg/dL 10/03/2024 1:14 AM EST [facility] Blood VENOUS BLOOD SPECIMEN / Unknown Venipuncture / Unknown 10/03/2024 12:27 AM EST 10/03/2024 12:47 AM EST Hayley Torres MD CHEMISTRY ORDERABLES Performing Organization Address [place]/[facility] Co de Phone Number [facility] [place] [address] * Magnesium (10/03/2024 12:27 AM EST) Magnesium 0.83 0.69 - 1.07 mMol/L 10/03/2024 1:14 AM EST [facility] Blood VENOUS BLOOD SPECIMEN / Unknown Venipuncture / Unknown 10/03/2024 12:27 AM EST 10/03/2024 12:47 AM EST Hayley Torres MD CHEMISTRY ORDERABLES Performing Organization Address City/[facility] Co de Phone Number [facility] [place] [address] * (ABNORMAL) POC, GLUCOSE (10/03/2024 12:13 AM EST) Glucometer, POC 255(H) 65 - 199 mg/dL 10/03/2024 12:14 AM EST [facility] Comment:Supplemental ranges: <140 mg/dL before meals <180 mg/dL all other times of the day. Blood CAPILLARY BLOOD / Unknown 10/03/2024 12:13 AM EST 10/03/2024 12:14 AM EST Hayley Torres MD POINT OF CARE TEST O GILDA Performing Organization Address City/[facility]/ZIP Co de Phone Number [facility] [place] [address] * POC, GLUCOSE (10/02/2024 8:17 PM EST) Glucometer, POC 177 65 - 199 mg/dL 10/02/2024 8:17 PM EST [facility] Comment:Supplemental ranges: <140 mg/dL before meals <180 mg/dL all other times of the day. Blood CAPILLARY BLOOD / Unknown 10/02/2024 8:17 PM EST 10/02/2024 8:17 PM EST Hayley Torres MD POINT OF CARE TEST O GILDA Performing Organization Address [place]/[facility] Co de Phone Number [facility] [place] [address] * POC, GLUCOSE (10/02/2024 6:22 PM EST) Glucometer, POC 172 65 - 199 mg/dL 10/02/2024 6:22 PM EST [facility] Comment:Supplemental ranges: <140 mg/dL before meals <180 mg/dL all other times of the day. Blood CAPILLARY BLOOD / Unknown 10/02/2024 6:22 PM EST 10/02/2024 6:22 PM EST Hayley Torres MD POINT OF CARE TEST O GILDA Performing Organization Address City/[facility]/ZIP Co de Phone Number [facility] [place] [address] * POC, GLUCOSE (10/02/2024 5:01 PM EST) Glucometer, POC 104 65 - 199 mg/dL 10/02/2024 5:01 PM EST [facility] Comment:Supplemental ranges: <140 mg/dL before meals <180 mg/dL all other times of the day. Blood CAPILLARY BLOOD / Unknown 10/02/2024 5:01 PM EST 10/02/2024 5:01 PM EST Hayley Torres MD POINT OF CARE TEST O GILDA Performing Organization Address City/[facility]/ZIP Co de Phone Number [facility] [place] [address] * POC, GLUCOSE (10/02/2024 3:05 PM EST) Glucometer, POC 113 65 - 199 mg/dL 10/02/2024 3:06 PM EST [facility] Comment:Supplemental ranges: <140 mg/dL before meals <180 mg/dL all other times of the day. Blood CAPILLARY BLOOD / Unknown 10/02/2024 3:05 PM EST 10/02/2024 3:06 PM EST Hayley Torres MD POINT OF CARE TEST O GILDA Performing Organization Address [place]/[facility]/ZIP Co de Phone Number [facility] [place] [address] * POC, GLUCOSE (10/02/2024 11:12 AM EST) [...] O GILDA [facility] [place] [address] * POC, GLUCOSE (10/02/2024 8:12 AM EST) Glucometer, POC 131 65 - 199 mg/dL 10/02/2024 8:12 AM EST [facility] Comment:Supplemental ranges: <140 mg/dL before meals <180 mg/dL all other times of the day. Blood CAPILLARY BLOOD / Unknown 10/02/2024 8:12 AM EST 10/02/2024 8:12 AM EST Hayley Torres MD POINT OF CARE TEST O GILDA Performing Organization Address City/[facility] Co de Phone Number [facility] [place] [address] * POC, GLUCOSE (10/02/2024 4:19 AM EST) Glucometer, POC 131 65 - 199 mg/dL 10/02/2024 4:19 AM EST [facility] Comment:Supplemental ranges: <140 mg/dL before meals <180 mg/dL all other times of the day. Blood CAPILLARY BLOOD / Unknown 10/02/2024 4:19 AM EST 10/02/2024 4:19 AM EST Hayley Torres MD POINT OF CARE TEST O GILDA Performing Organization Address [place]/[facility] Co de Phone Number [facility] [place] [address] * Phosphorus (10/02/2024 12:41 AM EST) Phosphorus 4.1 2.5 - 4.5 mg/dL 10/02/2024 1:21 AM EST [facility] Blood VENOUS BLOOD SPECIMEN / Unknown Venipuncture / Unknown 10/02/2024 12:41 AM EST 10/02/2024 12:45 AM EST Hayley Torres MD CHEMISTRY ORDERABLES Performing Organization Address City/[facility] Co de Phone Number [facility] [place] [address] * Magnesium (10/02/2024 12:41 AM EST) Magnesium 0.85 0.69 - 1.07 mMol/L 10/02/2024 1:21 AM [facility] Blood VENOUS BLOOD SPECIMEN / Unknown Venipuncture / Unknown 10/02/2024 12:41 AM EST 10/02/2024 12:45 AM EST Hayley Torres MD CHEMISTRY ORDERABLES [facility] [place] [address] * (ABNORMAL) Basic Metabolic Panel (10/02/2024 12:41 AM EST) Glucose 113 65 - 199 mg/dL 10/02/2024 1:21 AM [facility] Comment:Glucose Concentratio n >=200 mg/dL plus symptoms is consistent with Diabetes Mellitus. Blood Urea Nitrogen 11 10 - 20 mg/dL 10/02/2024 1:21 AM [facility] Creatinine 0.49(L) 0.80 - 1.50 mg/dL 10/02/2024 1:21 AM [facility] Sodium [...] CHEMISTRY ORDERABLES [facility] [place] [address] * (ABNORMAL) CBC (with Diff) (10/02/2024 12:41 [...] 0.10 x10(3)/mc L 10/02/2024 1:04 AM EST [facility] Immature Gran % 9.7 % [...] [facility]/ZIP Co de Phone Number [facility] [place] [address] * POC, GLUCOSE (10/02/2024 12:40 AM EST) [...] [facility]/ZIP Co de Phone Number [facility] [place] [address] * POC, GLUCOSE (10/01/2024 8:11 PM EST) Glucometer, POC 123 65 - 199 mg/dL 10/01/2024 8:11 PM EST [facility] Comment:Supplemental ranges: <140 mg/dL before meals <180 mg/dL all other times of the day. Blood CAPILLARY BLOOD / Unknown 10/01/2024 8:11 PM EST 10/01/2024 8:11 PM EST Hayley Torres MD POINT OF CARE TEST O RDERAHERNANDEZ Performing Organization Address [place]/[facility] Co de Phone Number [facility] [place] [address] * POC, GLUCOSE (10/01/2024 6:00 PM EST) Glucometer, POC 112 65 - 199 mg/dL 10/01/2024 6:00 PM EST [facility] Comment:Supplemental ranges: <140 mg/dL before meals <180 mg/dL all other times of the day. Blood CAPILLARY BLOOD / Unknown 10/01/2024 6:00 PM EST 10/01/2024 6:00 PM EST Hayley Torres MD POINT OF CARE TEST O GILDA Performing Organization Address [place]/[facility] de Phone Number [facility] [place] [address] * POC, GLUCOSE (10/01/2024 3:53 PM EST) Glucometer, POC 97 65 - 199 mg/dL 10/01/2024 3:53 PM EST [facility] Comment:Supplemental ranges: <140 mg/dL before meals <180 mg/dL all other times of the day. Blood CAPILLARY BLOOD / Unknown 10/01/2024 3:53 PM EST 10/01/2024 3:53 PM EST Hayley Torres MD POINT OF CARE TEST O GILDA Performing Organization Address [place]/[facility] Co de Phone Number [facility] [place] [address] * POC, GLUCOSE (10/01/2024 2:25 PM EST) Glucometer, POC 117 65 - 199 mg/dL 10/01/2024 2:25 PM EST [facility] Comment:Supplemental ranges: <140 mg/dL before meals <180 mg/dL all other times of the day. Blood CAPILLARY BLOOD / Unknown 10/01/2024 2:25 PM EST 10/01/2024 2:25 PM EST Hayley Torres MD POINT OF CARE TEST O GILDA Performing Organization Address [place]/[facility] Co de Phone Number [facility] [place] [address] * POC, GLUCOSE (10/01/2024 11:43 AM EST) Glucometer, POC 174 65 - 199 mg/dL 10/01/2024 11:43 AM EST [facility] Comment:Supplemental ranges: <140 mg/dL before meals <180 mg/dL all other times of the day. Blood CAPILLARY BLOOD / Unknown 10/01/2024 11:43 AM EST 10/01/2024 11:43 AM EST Hayley Torres MD POINT OF CARE TEST O GILDA Performing Organization Address [place]/[facility] Co de Phone Number [facility] [place] [address] * POC, GLUCOSE (10/01/2024 9:43 AM EST) Glucometer, POC 191 65 - 199 mg/dL 10/01/2024 9:43 AM EST [facility] Comment:Supplemental ranges: <140 mg/dL before meals <180 mg/dL all other times of the day. Blood CAPILLARY BLOOD / Unknown 10/01/2024 9:43 AM EST 10/01/2024 9:43 AM EST Hayley Torres MD POINT OF CARE TEST O GILDA Performing Organization Address City/[facility] Co de Phone Number [facility] [place] [address] * POC, GLUCOSE (10/01/2024 7:48 AM EST) [...] [facility]/ZIP Co de Phone Number [facility] [place] [address] * POC, GLUCOSE (10/01/2024 4:25 AM EST) Glucometer, POC 133 65 - 199 mg/dL 10/01/2024 4:26 AM EST [facility] Comment:Supplemental ranges: <140 mg/dL before meals <180 mg/dL all other times of the day. Blood CAPILLARY BLOOD / Unknown 10/01/2024 4:25 AM EST 10/01/2024 4:26 AM EST Hayley Torres MD POINT OF CARE TEST O RDTYESHA Performing Organization Address [place]/[facility]/ZIP Co de Phone Number [facility] [place] [address] * Phosphorus (10/01/2024 2:02 AM EST) Phosphorus 3.9 2.5 - 4.5 mg/dL 10/01/2024 7:16 AM EST [facility] Blood VENOUS BLOOD SPECIMEN / Unknown Venipuncture / Unknown 10/01/2024 2:02 AM EST 10/01/2024 2:10 AM EST Hayley Torres MD CHEMISTRY ORDERABLES Performing Organization Address City/[facility]/ZIP Co de Phone Number [facility] [place] [address] * (ABNORMAL) Scan, Peripheral Blood (10/01/2024 2:02 AM EST) RBC Morphology Abnormal 10/01/2024 2:55 AM EST [facility] Platelet Estimate Increased(A) Normal 10/01 2:55 AM EST [facility] Polychromasia Present 10/01/2024 2:55 AM [facility] Platelet Clumps Present(A) (none) 2:55 AM [facility] Blood VENOUS BLOOD SPECIMEN / Unknown Venipuncture / Unknown 10/01/2024 2:02 AM EST 10/01/2024 2:10 AM EST Hayley oTrres MD HEMATOLOGY ORDERABLE S Performing Organization Address [place]/[facility]/ZIP Co de Phone Number [facility] [place] [address] * Magnesium (10/01/2024 2:02 AM EST) Pathologist [facility] Magnesium 0.79 0.69 - 1.07 mMol/L 10/01/2024 2:41 AM [facility] Blood VENOUS BLOOD SPECIMEN / Unknown Venipuncture / Unknown 10/01/2024 2:02 AM EST 10/01/2024 2:10 AM EST Hayley Torres MD CHEMISTRY ORDERABLES Performing Organization Address City/[facility]/ZIP Co de Phone Number [facility] [place] [address] * (ABNORMAL) Basic Metabolic Panel (10/01/2024 2:02 AM EST) Glucose 122 65 - 199 mg/dL 10/01/2024 2:41 AM [facility] Comment:Glucose [...] - 5.0 mMol/L 10/01/2024 2:41 AM EST [facility] Chloride 105 98 - 107 mMol/L 10/01/2024 2:41 AM [facility] Carbon Dioxide 24 22 - 31 mMol/L 10/01/2024 2:41 AM [facility] Anion Gap 9 5 - 15 mMol/L 10/01/2024 2:41 AM EST [facility] Calcium 8.1(L) 8.5 - 10.5 mg/dL 10/01/2024 2:41 AM EST [facility] CHEMISTRY ORDERABLES [facility] [place] [address] * (ABNORMAL) CBC (with Diff) (10/01/2024 2:02 AM EST) White Blood Cell 10.15(H) 4.00 - 9.50 x10(3)/mc L 10/01/2024 2:55 AM EST [facility] Red Blood Cell 3.14(L) 4.58 [...] - 0.40 x10(3)/mc L 10/01/2024 2:55 AM [facility] Comment:This is an appended report. These results have been appended to a previously preliminary verified report. Basophil % 0.6 % 10/01/2024 2:55 AM [facility] Comment:This is an appended report. These results have been appended to a previously preliminary verified report. Baso Absolute 0.06 0.00 - 0.10 x10(3)/mc L 10/01/2024 2:55 AM [facility] Comment:This is an appended report. These results have been appended to a previously preliminary verified report. Immature Gran % 8.4 % 2:55 AM [facility] [...] [facility]/ZIP Co de Phone Number [facility] [place] [address] * POC, GLUCOSE (10/01/2024 12:32 AM EST) Glucometer, POC 179 65 - 199 mg/dL 10/01/2024 12:32 AM EST [facility] Comment:Supplemental ranges: <140 mg/dL before meals <180 mg/dL all other times of the day. Blood CAPILLARY BLOOD / Unknown 10/01/2024 12:32 AM EST 10/01/2024 12:32 AM EST Hayley Torres MD POINT OF CARE TEST O RDERAHERNANDEZ Performing Organization Address [place]/[facility] Co de Phone Number [facility] [place] [address] * POC, GLUCOSE (09/30/2024 7:37 PM EST) Glucometer, POC 140 65 - 199 mg/dL 09/30/2024 7:38 PM EST [facility] Comment:Supplemental ranges: <140 mg/dL before meals <180 mg/dL all other times of the day. Blood CAPILLARY BLOOD / Unknown 09/30/2024 7:37 PM EST 09/30/2024 7:38 PM EST Hayley Torres MD POINT OF CARE TEST O RDTYESHA Performing Organization Address City/[facility]/ZIP Co de Phone Number [facility] [place] [address] * POC, GLUCOSE (09/30/2024 4:29 PM EST) [...] O RDERAHERNANDEZ [facility] [place] [address] * POC, GLUCOSE (09/30/2024 12:16 PM EST) [...] O RDERAHERNANDEZ [facility] [place] [address] * POC, GLUCOSE (09/30/2024 7:58 AM EST) [...] [facility]/ZIP Co de Phone Number [facility] [place] [address] * Potassium (09/30/2024 6:27 AM EST) Pathologist [facility] Potassium 3.9 3.5 - 5.0 mMol/L 09/30/2024 7:10 AM EST [facility] Blood VENOUS BLOOD SPECIMEN / Unknown Venipuncture / Unknown 09/30/2024 6:27 AM EST 09/30/2024 6:35 AM EST Hayley Torres MD CHEMISTRY ORDERABLES Performing Organization Address [place]/[facility] Co de Phone Number [facility] [place] [address] * Vancomycin, trough (09/30/2024 6:27 AM EST) [facility] Vancomycin, Trough 14.1 10.0 - 20.0 mg/L 09/30/2024 7:10 AM EST [facility] Comment: Varies according to infection source. Blood VENOUS BLOOD SPECIMEN / Unknown Venipuncture / Unknown 09/30/2024 6:27 AM EST 09/30/2024 6:35 AM EST Hayley Torres MD CHEMISTRY ORDERABLES Performing Organization Address City/[facility] Co de Phone Number [facility] [place] [address] * POC, GLUCOSE (09/30/2024 3:51 AM EST) [...] O RDERABLES [facility] [place] [address] * Magnesium (09/29/2024 11:52 PM EST) [facility] Magnesium 0.85 0.69 - 1.07 mMol/L 09/30/2024 12:25 AM [facility] Blood VENOUS BLOOD SPECIMEN / Unknown Venipuncture / Unknown 09/29/2024 11:52 PM EST 09/29/2024 11:58 PM EST Hayley Torres MD CHEMISTRY ORDERABLES Performing Organization Address City/[facility]/ZIP Co de Phone Number [facility] [place] [address] * (ABNORMAL) Basic Metabolic Panel (09/29/2024 11:52 PM EST) [facility] Glucose 133 65 - 199 mg/dL 09/30/2024 12:51 AM [facility] Comment:Glucose [...] CHEMISTRY ORDERABLES [facility] [place] [id number] * (ABNORMAL) CBC (with Diff) (09/29/2024 11:52 [...] ORDERABLE S [facility] [place] [address] * POC, GLUCOSE (09/29/2024 11:51 PM EST) [facility] Glucometer, POC 134 65 - 199 mg/dL 09/29/2024 11:51 PM [facility] Comment:Supplemental ranges: <140 mg/dL before meals <180 mg/dL all other times of the day. Blood CAPILLARY BLOOD / Unknown 09/29/2024 11:51 PM EST 09/29/2024 11:51 PM EST Hayley Torres MD POINT OF CARE TEST O RDERABLES [facility] [place] [address] * Blood culture (09/29/2024 9:24 PM EST) [facility] Blood Culture No growth at 120 hours 10/04/2024 11:01 PM [facility] Blood VENOUS BLOOD SPECIMEN / Unknown Venipuncture / Unknown 09/29/2024 9:24 PM EST 09/29/2024 9:34 PM EST Hayley Torres MD MICROBIOLOGY - BLOOD ORDERABLES Performing Organization Address City/[facility]/ZIP Co de Phone Number [facility] [place] [address] * Blood culture (09/29/2024 9:24 PM EST) Blood Culture No growth at 120 hours 10/04/2024 11:01 PM EST [facility] Blood VENOUS BLOOD SPECIMEN / Unknown Venipuncture / Unknown 09/29/2024 9:24 PM EST 09/29/2024 9:34 PM EST Marko Dickson MD MICROBIOLOGY - BLOOD ORDERABLES Performing Organization Address [place]/[facility] Co de Phone Number [facility] [place] [address] * (ABNORMAL) POC, GLUCOSE (09/29/2024 7:35 PM [...] [facility]/ZIP Co de Phone Number [facility] [place] [address] * POC, GLUCOSE (09/29/2024 6:48 PM EST) [...] O GILDA [facility] [place] [address] * POC, GLUCOSE (09/29/2024 4:06 PM EST) Glucometer, POC 122 65 - 199 mg/dL 09/29/2024 4:06 PM EST [facility] Comment:Supplemental ranges: <140 mg/dL before meals <180 mg/dL all other times of the day. Blood CAPILLARY BLOOD / Unknown 09/29/2024 4:06 PM EST 09/29/2024 4:06 PM EST Hayley Torres MD POINT OF CARE TEST O GILDA Performing Organization Address City/[facility]/ZIP Co de Phone Number [facility] [place] [address] * POC, GLUCOSE (09/29/2024 11:49 AM EST) [...] O GILDA [facility] [place] [address] * (ABNORMAL) POC, GLUCOSE (09/29/2024 7:53 AM EST) Glucometer, POC (H) 65 - 199 mg/dL 09/29/2024 7:53 AM EST [facility] Comment:Supplemental ranges: <140 mg/dL before meals <180 mg/dL all other times of the day. Blood CAPILLARY BLOOD / Unknown 09/29/2024 7:53 AM EST 09/29/2024 7:53 AM EST Hayley Torres MD POINT OF CARE TEST O GILDA Performing Organization Address [place]/[facility] Co de Phone Number [facility] [place] [address] * POC, GLUCOSE (09/29/2024 3:45 AM EST) Glucometer, POC 184 65 - 199 mg/dL 09/29/2024 3:46 AM EST [facility] Comment:Supplemental ranges: <140 mg/dL before meals <180 mg/dL all other times of the day. Blood CAPILLARY BLOOD / Unknown 09/29/2024 3:45 AM EST 09/29/2024 3:46 AM EST Hayley Torres MD POINT OF CARE TEST Stephanie VO Performing Organization Address [place]/[facility] Phone Number [facility] [place] [address] * (ABNORMAL) Hemoglobin A1c (09/28/2024 11:51 PM EST) Hemoglobin A1c 9.7(H) 4.3 - 5.6 % 09/29/2024 9:54 AM EST [facility] Comment: Per ADA guidelines, without [...] red blood cell turnover may not be patient care representative of glycemic control. Reference Interval: 4.3 - 5.6% 5.7 - 6.4%: Consistent with prediabetes >=6.5%: Consistent with diagnosis of diabetes mellitus Estimated Average Glucose 232 mg/dL 09/29/2024 9:54 AM EST [facility] Blood VENOUS BLOOD SPECIMEN / Unknown Venipuncture / Unknown 09/28/2024 11:51 PM EST 09/28/2024 11:56 PM EST Hayley Torres MD CHEMISTRY ORDERABLES Performing Organization Address City/[facility]/ZIP Co de Phone Number [facility] [place] [address] * Magnesium (09/28/2024 11:51 PM EST) Pathologist [facility] Magnesium 0.72 0.69 - 1.07 mMol/L 09/29/2024 12:27 AM [facility] Blood VENOUS BLOOD SPECIMEN / Unknown Venipuncture / Unknown 09/28/2024 11:51 PM EST 09/28/2024 11:57 PM EST Hayley Torres MD CHEMISTRY ORDERABLES Performing Organization Address City/[facility] Co de Phone Number [facility] [place] [address] * (ABNORMAL) Basic Metabolic Panel (09/28/2024 11:51 [...] CHEMISTRY ORDERABLES [facility] [place] [address] * (ABNORMAL) CBC (with Diff) (09/28/2024 11:51 PM EST) White Blood Cell 12.76(H) 4.00 - 9.50 x10(3)/mc L 09/29/2024 12:00 AM EST [facility] Red Blood Cell 2.90(L) 4.58 [...] Immature Gran % 1.4 % 12:00 AM [facility] Immature Gran Absolute 0.18(H) 0.00 - 0.04 x10(3)/mc L 09/29/2024 12:00 AM [facility] Blood VENOUS BLOOD SPECIMEN / Unknown Venipuncture / Unknown 09/28/2024 11:51 PM EST 09/28/2024 11:56 PM EST Hayley Torres MD HEMATOLOGY ORDERABLE S [facility] [place] [address] * (ABNORMAL) POC, GLUCOSE (09/28/2024 11:45 PM EST) [facility] Signature Glucometer, POC 238(H) 65 - 199 mg/dL 09/28/2024 11:45 PM EST [facility] Comment:Supplemental ranges: <140 mg/dL before meals <180 mg/dL all other times of the day. Blood CAPILLARY BLOOD / Unknown 09/28/2024 11:45 PM EST 09/28/2024 11:45 PM EST Hayley Torres MD POINT OF CARE TEST O GILDA Performing Organization Address [place]/[facility] Co de Phone Number [facility] [place] [address] * (ABNORMAL) POC, GLUCOSE (09/28/2024 10:00 PM EST) Glucometer, POC 287(H) 65 - 199 mg/dL 09/28/2024 10:00 PM EST [facility] Comment:Supplemental ranges: <140 mg/dL before meals <180 mg/dL all other times of the day. Blood CAPILLARY BLOOD / Unknown 09/28/2024 10:00 PM EST 09/28/2024 10:00 PM EST Hayley Torres MD POINT OF CARE TEST O GILDA Performing Organization Address [place]/[facility] Co de Phone Number [facility] [place] [address] * (ABNORMAL) POC, GLUCOSE (09/28/2024 7:51 PM EST) Glucometer, POC 243(H) 65 - 199 mg/dL 09/28/2024 7:52 PM EST [facility] Comment:Supplemental ranges: <140 mg/dL before meals <180 mg/dL all other times of the day. Blood CAPILLARY BLOOD / Unknown 09/28/2024 7:51 PM EST 09/28/2024 7:52 PM EST Hayley Torres MD POINT OF CARE TEST O GILDA Performing Organization Address [place]/[facility] Co de Phone Number [facility] [place] [address] * Blood culture (09/28/2024 5:49 PM EST) Blood Culture No growth at 120 hours 10/03/2024 7:01 PM EST [facility] Blood VENOUS BLOOD SPECIMEN / Unknown Venipuncture / Unknown 09/28/2024 5:49 PM EST 09/28/2024 5:53 PM EST Marko Dickson MD MICROBIOLOGY - BLOOD ORDERABLES Performing Organization Address City/[facility]/ZIP Co de Phone Number [facility] [place] [address] * (ABNORMAL) POC, GLUCOSE (09/28/2024 4:42 PM [...] [facility]/ZIP Co de Phone Number [facility] [place] [address] * (ABNORMAL) Blood Gas, Arterial POC (09/28/2024 3:16 PM EST) pH, Arterial 7.42 7.35 - 7.45 09/28/2024 3:17 PM EST [facility] PCO2, Arterial 39 35 - 45 mmHg 09/28/2024 3:17 PM EST [facility] PO2, Arterial 103 85 - 104 mmHg 09/28/2024 3:17 PM EST [facility] Bicarbonate, Arterial 24.8 20.0 - 26.0 mmol/L 09/28/2024 3:17 PM EST [facility] Base Excess, Arterial 0.2 -3.0 - 3.0 mmol/L 09/28/2024 3:17 PM EST [facility] Hemoglobin, Arterial 10.9(L) 13.7 - 16.5 g/dL 09/28/2024 3:17 PM EST [facility] Oxyhemoglobin, Arterial 97.1(H) 94.0 - 97.0 % 09/28/2024 3:17 PM EST [facility] Carboxyhemoglobin , Arterial 0.1 % 09/28/2024 3:17 PM [facility] Comment: Nonsmokers: 0.5-1.5% COHB ?? Smokers: Variable ??but usually less than 10% ?? Toxic: 20-30% COHB ?? Lethal: Greater than 60% COHB Methemoglobin, Arterial 0.2 <=1.5 % 09/28/2024 3:17 PM EST [facility] Sodium, Arterial 131(L) 135 - 145 mmol/L 09/28/2024 3:17 PM [facility] Potassium, Arterial 3.8 3.5 - 5.0 mmol/L 09/28/2024 3:17 PM [facility] Chloride, Arterial 99 98 - 107 mmol/L 09/28/2024 3:17 PM EST [facility] Lactate, Arterial 1.1 0.5 - 2.2 mmol/L 09/28/2024 3:17 PM [facility] IONIZED CALCIUM, ARTERIAL 1.08(L) 1.15 - 1.33 mmol/L 09/28/2024 3:17 PM EST [facility] Glucose, Arterial 163 65 - 199 mg/dL 09/28/2024 3:17 PM EST [facility] Comment:Glucose Concentratio n >=200 mg/dL plus symptoms is consistent with Diabetes Mellitus. Blood ARTERIAL BLOOD / Unknown 09/28/2024 3:16 PM EST 09/28/2024 3:17 PM EST Hayley Torres MD POINT OF CARE TEST O RDERABLES [facility] [place] [address] * Surgical Pathology (09/28/2024 2:10 PM EST) Case Report Surgical Pathology Report ? Case: [id number] ? Authorizing Provider: ??Melissa, Hayley Skinner, ? Collected: ? 09/28/2024 1410 ? Ordering Location: ? Main Operating Room [facility] ?? Received: ?09/28/2024 1644 ? [facility] ? Pathologist: ? Aziza Pacekr, MD ? Specimens: ?? A) - Leg, [...] gross diagnosis only sns 10/02/2024 8:17 AM [facility] Result Note Routine 10/02/2024 8:17 AM [facility] Road Grader Operator STRUCTURE OF LEFT LOWER LIMB / Unknown 09/28/2024 2:10 PM EST 09/28/2024 4:44 PM EST Comment:Left femoral proxima l graft Biomedical device (physical object) STRUCTURE OF LEFT LOWER LIMB / Unknown 09/28/2024 2:17 PM EST 09/28/2024 4:44 PM EST Comment:Left distal BK pop g raft Hayley Torres MD PATHOLOGY/CYTOLOGY O RDERABLES Performing Organization Address [place]/[facility] Co de Phone Number [facility] [place] [address] * Potassium (09/28/2024 10:45 AM EST) Pathologist [facility] Potassium 4.6 3.5 - 5.0 mMol/L 09/28/2024 12:26 PM EST [facility] Blood VENOUS BLOOD SPECIMEN / Unknown Venipuncture / Unknown 09/28/2024 10:45 AM EST 09/28/2024 10:53 AM EST Marko Dickson MD CHEMISTRY ORDERABLES Performing Organization Address [place]/[facility] Co de Phone Number [facility] [place] [address] * POC, GLUCOSE (09/28/2024 7:57 AM EST) [facility] Glucometer, POC 192 65 - 199 mg/dL 09/28/2024 7:57 AM EST [facility] Comment:Supplemental ranges: <140 mg/dL before meals <180 mg/dL all other times of the day. Blood CAPILLARY BLOOD / Unknown 09/28/2024 7:57 AM EST 09/28/2024 7:57 AM EST Marko Dickson MD POINT OF CARE TEST O GILDA Performing Organization Address [place]/[facility] Co de Phone Number [facility] [place] [address] * ELEN, legs, multiple levels (09/28/2024 7:44 AM EST) VB Text Report Department: Vascular Surgery Lab Patient: [id number] (GEOVANNA DIXON) CPT: 98116 Referring Physician: HERMILA SNIDER ?? Phone: Indications: [...] EST Narrative 09/28/2024 9:15 AM EST [address] [place] [address] ? Echocardiogram Report Name: GEOVANNA DIXON JR ?Study Date: 09/28/2024 06:56 AMBP: 132/75 mmHg ? Patient Location: ^08^A : 1975 ? Height: 179 cm ? Account: [id number] Age: 49 yrs ? Weight: 108 kg Gender: Male ?BSA: 2.3 m2 Ordering Physician: Marko Dickson MD Referring Physician: PATRIC GILES Performed By: Faiza Cole Reason For Study: Vascular graft infection, initial encounter; MRSA bacteremia Interpreting Fellow: Jame Lares. Exam Location: [facility]. Interpretation Summary -Limited study performed [...] 05/29/2024, no significant changes. Procedure Limited - 32676. Doppler - 19888. Color Doppler - 47864. Suboptimal quality. This study is limited because [...] Note David Lomeli MD - 09/28/2024 [address] [place] [address] Echocardiogram Report Name: GEOVANNA DIXON JR Study Date: 406:56 AMBP: 132/75 mmHg Patient Location:[facility]^A : 1975 Height: 179 cm Account: [id number] Age: 49 yrs Weight: 108 kg Gender: Male BSA: 2.3 m2 Ordering Physician: Marko Dickson MD Referring Physician: PATRIC GILES Performed By: Faiza Cole Reason For Study: Vascular graft infection, initial encounter; MRSAbacteremia Interpreting Fellow: Jame Lares. Exam Location: [facility]. Interpretation Summary -Limited study performed [...] 05/29/2024, no significant changes. Procedure Limited - 40747. Doppler - 07443. Color Doppler - 16895. Suboptimalquality. This study is limited because of [...] Dickson MD CHEMISTRY ORDERABLES Performing Organization Address City/[facility]/ZIP Co de Phone Number [facility] [place] [address] * (ABNORMAL) Potassium (09/28/2024 4:55 AM EST) Potassium 2.9(LLL) 3.5 - 5.0 mMol/L 09/28/2024 5:31 AM EST [facility] Blood VENOUS BLOOD SPECIMEN / Unknown Venipuncture / Unknown 09/28/2024 4:55 AM EST 09/28/2024 5:01 AM EST Marko Dickson MD CHEMISTRY ORDERABLES [facility] [place] [address] * (ABNORMAL) POC, GLUCOSE (09/28/2024 3:54 AM [...] [facility]/ZIP Co de Phone Number [facility] [place] [address] * Magnesium (09/27/2024 11:58 PM EST) Magnesium 0.77 0.69 - 1.07 mMol/L 09/28/2024 12:38 AM [facility] Blood VENOUS BLOOD SPECIMEN / Unknown Venipuncture / Unknown 09/27/2024 11:58 PM EST 09/28/2024 12:10 AM EST Hayley Torres MD CHEMISTRY ORDERABLES Performing Organization Address City/[facility]/ZIP Co de Phone Number [facility] [place] [address] * (ABNORMAL) Basic Metabolic Panel (09/27/2024 11:58 PM EST) Glucose 246(H) 65 - 199 mg/dL 09/28/2024 12:38 AM EST [facility] Comment:Glucose Concentratio n >=200 mg/dL plus symptoms is consistent with Diabetes Mellitus. Blood Urea Nitrogen 5(L) 10 - 20 mg/dL 09/28/2024 12:38 AM EST [facility] Creatinine 0.48(L) 0.80 - 1.50 mg/dL 09/28/2024 12:38 AM EST [facility] Sodium 131(L) 135 - 145 [...] CHEMISTRY ORDERABLES [facility] [place] [address] * (ABNORMAL) CBC (with Diff) (09/27/2024 11:58 [...] 6.10 x10(3)/mc L 09/28/2024 12:14 AM EST [facility] Lymph % 10.5 % 09/28/2024 [...] - 0.10 x10(3)/mc L 09/28/2024 12:14 AM [facility] [...] ORDERABLE S [facility] [place] [address] * (ABNORMAL) POC, GLUCOSE (09/27/2024 11:46 PM EST) Glucometer, POC 205(H) 65 - 199 mg/dL 09/27/2024 11:46 PM EST [facility] Comment:Supplemental ranges: <140 mg/dL before meals <180 mg/dL all other times of the day. Blood CAPILLARY BLOOD / Unknown 09/27/2024 11:46 PM EST 09/27/2024 11:46 PM EST Marko Dickson MD POINT OF CARE TEST O RDERABLES Performing Organization Address [place]/[facility] Co de Phone Number [facility] [place] [address] * (ABNORMAL) Blood culture (09/27/2024 9:33 PM [...] MICROBIOLOGY - BLOOD ORDERABLES Performing Organization Address [place]/[facility] Co de Phone Number [facility] [place] [address] * POC, GLUCOSE (09/27/2024 7:51 PM EST) [...] Performing Organization Address City/[facility] Co de Phone Number [facility] [place] [address] * (ABNORMAL) Hemogram (09/27/2024 5:55 PM EST) [...] 32.0 - 35.7 g/dL 09/27/2024 6:16 PM [facility] Platelet 322 145 - 357 [...] MD HEMATOLOGY ORDERABLE S Performing Organization Address [place]/[facility]/ZIP Co de Phone Number [facility] [place] [address] * POC, GLUCOSE (09/27/2024 5:48 PM EST) Glucometer, POC 171 65 - 199 mg/dL 09/27/2024 5:48 PM EST [facility] Comment:Supplemental ranges: <140 mg/dL before meals <180 mg/dL all other times of the day. Blood CAPILLARY BLOOD / Unknown 09/27/2024 5:48 PM EST 09/27/2024 5:48 PM EST Marko Dickson MD POINT OF CARE TEST O RDERABLES Performing Organization Address [place]/[facility] Co de Phone Number [facility] [place] [address] * Anaerobic Culture (09/27/2024 4:54 PM EST) Anaerobic Culture No anaerobic organisms isolated 10/01/2024 3:54 PM EST [facility] Tissue STRUCTURE OF LEFT THIGH / Unknown 09/27/2024 4:54 PM EST Comment:Infected explanted l eft leg bypass graft Hayley Torres MD MICROBIOLOGY - GENER AL ORDERABLES Performing Organization Address [place]/[facility] Co de Phone Number [facility] [place] [address] * (ABNORMAL) Tissue Culture, Aerobic Only (09/27/2024 [...] - GENER AL ORDERABLES Performing Organization Address City/[facility]/ZIP Co de Phone Number [facility] [place] [address] * Fungus culture (09/27/2024 4:54 PM EST) Fungus Culture No fungus isolated 10/31/2024 7:55 AM EST [facility] Tissue STRUCTURE OF LEFT THIGH / Unknown 09/27/2024 4:54 PM EST 09/27/2024 5:23 PM EST Comment:Infected explanted l eft leg bypass graft Hayley Torres MD MICROBIOLOGY - GENER AL ORDERABLES [facility] [place] [address] * POC, GLUCOSE (09/27/2024 3:23 PM EST) Glucometer, POC 178 65 - 199 mg/dL 09/27/2024 3:23 PM EST [facility] Comment:Supplemental ranges: <140 mg/dL before meals <180 mg/dL all other times of the day. Blood CAPILLARY BLOOD / Unknown 09/27/2024 3:23 PM EST 09/27/2024 3:23 PM EST Marko Dickson MD POINT OF CARE TEST Stephanie VO Performing Organization Address [place]/[facility] Co de Phone Number [facility] [place] [address] * POC, GLUCOSE (09/27/2024 11:29 AM EST) Glucometer, POC 181 65 - 199 mg/dL 09/27/2024 11:29 AM EST [facility] Comment:Supplemental ranges: <140 mg/dL before meals <180 mg/dL all other times of the day. Blood CAPILLARY BLOOD / Unknown 09/27/2024 11:29 AM EST 09/27/2024 11:30 AM EST Marko Dickson MD POINT OF CARE TEST Stephanie VO Performing Organization Address [place]/[facility] de Phone Number [facility] [place] [address] * CT Lower Extremity w Contrast Left (09/27/2024 9:16 AM EST) WORKSTATION ID [id number] [facility] Anatomical Region Laterality Modality Hip, Leg, Knee, [...] who have questions please contact the health field care advocate that requested your imaging first. ? Electronically signed by: Ignacia Chi MD, [facility] ([phone]), at 09/27/2024 10:48 AM Narrative 09/27/2024 10:48 [...] is wedgedbetween the vastus medialis and adductor [place] muscle. This tracks into thepopliteal fossa and [...] patients who have questions please contactthe health field care advocate that requested your imaging first. Electronically signed by: Ignacia Chi MD, [facility]([phone]), at 09/27/2024 10:48 AM Rose M Adriana [employer] IMG CT ORDERABL ES * POC, GLUCOSE (09/27/2024 7:51 AM EST) [facility] Glucometer, POC 194 65 - 199 mg/dL 09/27/2024 7:51 AM EST [facility] Comment:Supplemental ranges: <140 mg/dL before meals <180 mg/dL all other times of the day. Blood CAPILLARY BLOOD / Unknown 09/27/2024 7:51 AM EST 09/27/2024 7:51 AM EST Marko Dickson MD POINT OF CARE TEST O RDERABLES Performing Organization Address [place]/[facility] Co de Phone Number [facility] [place] [address] * (ABNORMAL) MRSA PCR Screen (09/27/2024 7:51 AM EST) [facility] MRSA PCR Detected(A ) 09/27/2024 11:56 AM EST [facility] Swab BOTH ANTERIOR NARES / Unknown Non Blood Collection / Unknown 09/27/2024 7:51 AM EST 09/27/2024 8:05 AM EST Narrative [facility] - 09/27/2024 11:56 AM EST This test was performed using the Xpert MRSA NxG test kit and is run on the [employer] GeneXpert Dx System. This test is cleared by the U.S. Food and Drug Administration for clinical use and its performance characteristics have been verified by the [facility] at [facility]. Marko Dickson MD MOLECULAR ORDERABLES Performing Organization Address City/[facility]/ZIP Co de Phone Number [facility] [place] [address] * Potassium (09/27/2024 7:51 AM EST) [facility] Potassium 3.5 3.5 - 5.0 mMol/L 09/27/2024 9:09 AM EST [facility] Blood VENOUS BLOOD SPECIMEN / Unknown Venipuncture / Unknown 09/27/2024 7:51 AM EST 09/27/2024 8:05 AM EST Marko Dickson MD CHEMISTRY ORDERABLES Performing Organization Address City/[facility]/ZIP Co de Phone Number [facility] [place] [address] * (ABNORMAL) Potassium (09/27/2024 5:05 AM EST) Potassium 3.4(L) 3.5 - 5.0 mMol/L 09/27/2024 5:32 AM EST [facility] Blood VENOUS BLOOD SPECIMEN / Unknown Venipuncture / Unknown 09/27/2024 5:05 AM EST 09/27/2024 5:09 AM EST Marko Dickson MD CHEMISTRY ORDERABLES Performing Organization Address [place]/[facility]/ZIP Co de Phone Number [facility] [place] [address] * POC, GLUCOSE (09/27/2024 3:52 AM EST) [...] [facility]/ZIP Co de Phone Number [facility] [place] [address] * (ABNORMAL) POC, GLUCOSE (09/27/2024 1:59 AM [...] [facility]/ZIP Co de Phone Number [facility] [place] [address] * (ABNORMAL) Magnesium (09/27/2024 12:01 AM EST) Magnesium 0.68(L) 0.69 - 1.07 mMol/L 09/27/2024 12:35 AM [facility] Blood VENOUS BLOOD SPECIMEN / Unknown Venipuncture / Unknown 09/27/2024 12:01 AM EST 09/27/2024 12:05 AM EST Hayley Torres MD CHEMISTRY ORDERABLES Performing Organization Address City/[facility]/ZIP Co de Phone Number [facility] [place] [address] * (ABNORMAL) Basic Metabolic Panel (09/27/2024 12:01 AM EST) Glucose 261(H) 65 - 199 mg/dL 09/27/2024 12:35 AM [facility] Comment:Glucose Concentratio n >=200 mg/dL plus symptoms is consistent with Diabetes Mellitus. Blood Urea Nitrogen 7(L) 10 - 20 mg/dL 09/27/2024 12:35 AM EST [facility] Creatinine 0.45(L) 0.80 - 1.50 mg/dL 09/27/2024 12:35 AM EST [facility] Sodium 128(L) 135 - 145 mMol/L 09/27/2024 12:35 AM [facility] Potassium 3.3(L) 3.5 - 5.0 mMol/L 09/27/2024 12:35 AM [facility] Chloride 92(L) 98 - 107 mMol/L 09/27/2024 12:35 AM EST [facility] Carbon Dioxide 23 22 - 31 mMol/L 09/27/2024 12:35 AM [facility] Anion Gap 13 5 - 15 mMol/L 09/27/2024 12:35 AM [facility] Calcium 8.5 8.5 - 10.5 mg/dL 09/27/2024 12:35 AM EST [facility] Est Glomerular Filtration Rate - Male 128 mL/min/1. 73 m?? 09/27/2024 12:35 AM EST [facility] CHEMISTRY ORDERABLES [facility] [place] [address] * (ABNORMAL) CBC (with Diff) (09/27/2024 12:01 AM EST) White Blood Cell 23.20(H) 4.00 - 9.50 x10(3)/mc L 09/27/2024 12:10 AM EST [facility] Red Blood Cell 4.07(L) 4.58 - 5.54 x10(6)/mc L 09/27/2024 12:10 AM EST [facility] Hemoglobin 11.7(L) 13.7 - 16.5 [...] % 7.8 % 09/27/2024 12:10 AM EST [facility] Monocyte Absolute 1.80(H) 0.30 - [...] ORDERABLE S [facility] [place] [address] * (ABNORMAL) POC, GLUCOSE (09/26/2024 11:59 PM EST) Glucometer, POC 251(H) 65 - 199 mg/dL 09/26/2024 11:59 PM EST [facility] Comment:Supplemental ranges: <140 mg/dL before meals <180 mg/dL all other times of the day. Blood CAPILLARY BLOOD / Unknown 09/26/2024 11:59 PM EST 09/26/2024 11:59 PM EST Marko Dickson MD POINT OF CARE TEST O RDTYESHA Performing Organization Address City/[facility]/ZIP Co de Phone Number [facility] [place] [address] * (ABNORMAL) POC, GLUCOSE (09/26/2024 7:34 PM EST) [facility] Glucometer, POC 204(H) 65 - 199 mg/dL 09/26/2024 7:34 PM EST [facility] Comment:Supplemental ranges: <140 mg/dL before meals <180 mg/dL all other times of the day. Blood CAPILLARY BLOOD / Unknown 09/26/2024 7:34 PM EST 09/26/2024 7:35 PM EST Marko Dickson MD POINT OF CARE TEST O GILDA Performing Organization Address [place]/[facility] Co de Phone Number [facility] [place] [address] * (ABNORMAL) Blood culture (09/26/2024 6:45 PM EST) [facility] Blood Culture Methicillin Resistant Staphylococcus aureus(Critical) [...] MICROBIOLOGY - BLOOD ORDERABLES Performing Organization Address City/[facility]/ZIP Co de Phone Number [facility] [place] [address] * (ABNORMAL) Sonicated Tissue/Implant Culture (09/26/2024 5:16 [...] - GENER AL ORDERABLES Performing Organization Address [place]/[facility]/ZIP Co de Phone Number [facility] [place] [address] * Anaerobic Culture (09/26/2024 5:02 PM EST) [...] - GENER AL ORDERABLES Performing Organization Address City/[facility]/ZIP Co de Phone Number [facility] [place] [address] * (ABNORMAL) Abscess/Wound Aspirate Culture, Aerobic Only [...] - GENER AL ORDERABLES Performing Organization Address [place]/[facility] Co de Phone Number [facility] [place] [address] * Fungus culture (09/26/2024 5:02 PM EST) [...] - GENER AL ORDERABLES Performing Organization Address [place]/[facility] Co de Phone Number [facility] [place] [address] * Anaerobic Culture (09/26/2024 4:50 PM EST) Anaerobic Culture No anaerobic organisms isolated 09/30/2024 3:51 PM EST [facility] Abscess LEFT INGUINAL REGION STRUCTURE / Unknown Non Blood Collection / Unknown 09/26/2024 4:50 PM EST Comment:Left Groin Fluid Hayley Torres MD MICROBIOLOGY - GENER AL ORDERABLES Performing Organization Address [place]/[facility]/ZIP Co de Phone Number [facility] [place] [address] * (ABNORMAL) Abscess/Wound Aspirate Culture, Aerobic Only [...] Torres MD MICROBIOLOGY - [place] [address] * Fungus culture (09/26/2024 4:50 PM EST) Fungus Culture No fungus isolated 10/24/2024 7:54 AM EST [facility] Abscess LEFT INGUINAL REGION STRUCTURE / Unknown Non Blood Collection / Unknown 09/26/2024 4:50 PM EST 09/26/2024 4:56 PM EST Comment:Left Groin Fluid Hayley Torres MD MICROBIOLOGY - GENER AL ORDERABLES [facility] [place] [address] * (ABNORMAL) Blood Gas, Arterial POC (09/26/2024 [...] CARE TEST O GILDA Performing Organization Address City/[facility]/ZIP Co de Phone Number [facility] [place] [address] * (ABNORMAL) POC, GLUCOSE (09/26/2024 4:29 PM EST) [facility] Glucometer, POC 213(H) 65 - 199 mg/dL 09/26/2024 4:30 PM EST [facility] Comment:Supplemental ranges: <140 mg/dL before meals <180 mg/dL all other times of the day. Blood CAPILLARY BLOOD / Unknown 09/26/2024 4:29 PM EST 09/26/2024 4:30 PM EST Marko Dickson MD POINT OF CARE TEST O GILDA [facility] [place] [address] * (ABNORMAL) Blood Gas, Venous POC (09/26/2024 3:28 PM EST) [facility] [facility] pH, Venous 7.43(H) 7.32 - 7.42 09/26/2024 3:30 PM [facility] PCO2, Venous 41 38 - [...] , Venous 1.0 % 09/26/2024 3:30 PM [facility] Comment: Nonsmokers: 0.5-1.5% COHB ?? Smokers: Variable ??but usually less than 10% ?? Toxic: 20-30% COHB ?? Lethal: Greater than 60% COHB Methemoglobin, Venous 0.4 <=1.5 % 09/26/2024 3:30 PM [facility] Sodium, Venous 127(L) 135 - 145 mmol/L 09/26/2024 3:30 PM [facility] Potassium, Venous 3.3(L) 3.5 - 5.0 mmol/L 09/26/2024 3:30 PM [facility] Chloride, Venous 91(L) 98 - 107 mmol/L 09/26/2024 3:30 PM [facility] Glucose, Venous 259(H) 65 - 199 mg/dL 09/26/2024 3:30 PM [facility] Comment:Glucose Concentratio n >=200 mg/dL plus symptoms is consistent with Diabetes Mellitus. Lactate, Venous 2.2 0.5 - 2.2 mmol/L 09/26/2024 3:30 PM EST [facility] Ionized Calcium, Venous 1.09(L) 1.15 - 1.33 mmol/L 09/26/2024 3:30 PM EST [facility] Blood VENOUS BLOOD SPECIMEN / Unknown 09/26/2024 3:28 PM EST 09/26/2024 3:30 PM EST Marko Dickson MD POINT OF CARE TEST O RDERABLES [facility] [place] [address] * (ABNORMAL) Scan, Peripheral Blood (09/26/2024 2:39 PM EST) Pathologist [facility] RBC Morphology Abnormal 09/26/2024 3:21 PM EST [facility] Platelet Estimate Normal Normal 09/26/2024 3:21 PM EST [facility] Microcyte 1-5 /HPF 09/26/2024 3:21 PM EST [facility] Platelet Clumps Present(A) (none) 3:21 PM EST [facility] WBC MORPHOLOGY See Comment(A) (none) 09/26/2024 3:21 PM EST [facility] Comment:Dohle BodiesToxic Gr anulation Blood VENOUS BLOOD SPECIMEN / Unknown Venipuncture / Unknown 09/26/2024 2:39 PM EST 09/26/2024 2:50 PM EST Marko Dickson MD HEMATOLOGY ORDERABLE S [facility] [place] [address] * ABORH RECHECK (PATIENT HISTORY FOUND) (09/26/2024 2:39 PM EST) ABORH Recheck Progress Complete 09/26/2024 5:01 PM EST [facility] Blood VENOUS BLOOD SPECIMEN / Unknown Venipuncture / Unknown 09/26/2024 2:39 PM EST 09/26/2024 2:56 PM EST Marko Dickson MD BLOOD BANK LAB ORDER RANDELL [facility] [place] [address] * (ABNORMAL) Hepatic Function Panel (09/26/2024 2:39 PM EST) Pathologist [facility] Albumin 3.1(L) 3.2 - 5.2 g/dL 09/26/2024 4:23 PM EST [facility] Aspartate Aminotransferase 16 <=39 unit/L 09/26/2024 4:23 PM [facility] Alanine Aminotransferase 14 0 - 55 unit/L 09/26/2024 4:23 PM [facility] Alkaline Phosphatase 160(H) 40 - 130 unit/L 09/26/2024 4:23 PM [facility] Bilirubin, Total 0.4 <=1.3 mg/dL [...] CHEMISTRY ORDERABLES [facility] [place] [address] * (ABNORMAL) Basic Metabolic Panel (09/26/2024 2:39 [...] 8.5 - 10.5 mg/dL 09/26/2024 4:32 PM [facility] Est Glomerular Filtration Rate - Male 121 mL/min/1. 73 m?? 09/26/2024 4:32 PM [facility] Comment: This [...] CHEMISTRY ORDERABLES [facility] [place] [address] * (ABNORMAL) CBC (with Diff) (09/26/2024 2:39 PM EST) White Blood Cell 22.76(H) 4.00 - 9.50 x10(3)/mc L 09/26/2024 3:21 PM [facility] Red Blood Cell 4.20(L) 4.58 - 5.54 x10(6)/mc L 09/26/2024 3:21 PM [facility] Hemoglobin 12.3(L) 13.7 - 16.5 [...] 0.04 x10(3)/mc L 09/26/2024 3:21 PM EST [facility] Comment:This is an appended report. These results have been appended to a previously preliminary verified report. Blood VENOUS BLOOD SPECIMEN / Unknown Venipuncture / Unknown 09/26/2024 2:39 PM EST 09/26/2024 2:50 PM EST Hayley Torres MD HEMATOLOGY ORDERABLE S [facility] [place] [address] * Phosphorus (09/26/2024 2:39 PM EST) Phosphorus 3.2 2.5 - 4.5 mg/dL 09/26/2024 4:05 PM EST [facility] Blood VENOUS BLOOD SPECIMEN / Unknown Venipuncture / Unknown 09/26/2024 2:39 PM EST 09/26/2024 2:50 PM EST Marko Dickson MD CHEMISTRY ORDERABLES [facility] [place] [address] * (ABNORMAL) Magnesium (09/26/2024 2:39 PM EST) Magnesium 0.65(L) 0.69 - 1.07 mMol/L 09/26/2024 4:05 PM EST [facility] Blood VENOUS BLOOD SPECIMEN / Unknown Venipuncture / Unknown 09/26/2024 2:39 PM EST 09/26/2024 2:50 PM EST Marko Dickson MD CHEMISTRY ORDERABLES Performing Organization Address City/[facility]/ZIP Co de Phone Number [facility] [place] [address] * Type and screen ([facility]/P/BABITA) (09/26/2024 2:39 PM EST) [facility] ABORH Type A POSITIVE 09/26/2024 3:45 PM EST [facility] PATIENT HISTORY Found 09/26/2024 3:45 PM EST [facility] Expires at [id number] on: 09/29/2024 09/26/2024 3:45 PM EST [facility] ANTIBODY SCREEN AUTOMATED Negative 09/26/2024 3:45 PM EST [facility] T&S only valid at [facility] 09/26/2024 3:45 PM EST [facility] Blood VENOUS BLOOD SPECIMEN / Unknown Venipuncture / Unknown 09/26/2024 2:39 PM EST 09/26/2024 2:56 PM EST Narrative [facility] - 09/26/2024 3:45 PM EST This Type and Screen result is only valid at the [facility] Marko Dickson MD BLOOD BANK LAB ORDER RANDELL Performing Organization Address City/[facility] Co de Phone Number [facility] [place] [address] * (ABNORMAL) Fibrinogen (09/26/2024 2:39 PM EST) [facility] Fibrinogen >1,000(H) 200 - 393 mg/dL 09/26/2024 3:09 PM EST [facility] Comment: A fibrinogen level >100 mg/dL is adequate for hemostasis in most patients without underlying bleeding disorders. Blood VENOUS BLOOD SPECIMEN / Unknown Venipuncture / Unknown 09/26/2024 2:39 PM EST 09/26/2024 2:50 PM EST Marko Dickson MD HEMATOLOGY ORDERABLE S Performing Organization Address [place]/[facility] Co de Phone Number [facility] [place] [address] * APTT (09/26/2024 2:39 PM EST) Partial [...] MD HEMATOLOGY ORDERABLE S Performing Organization Address [place]/[facility] Phone Number [facility] [place] [address] * (ABNORMAL) Prothrombin Time (09/26/2024 2:39 PM [...] ORDERABLE S [facility] [place] [address] * (ABNORMAL) POC, GLUCOSE (09/26/2024 2:36 PM [...] [facility]/ZIP Co de Phone Number [facility] [place] [address] * (ABNORMAL) Blood culture (09/26/2024 2:22 PM EST) Blood Culture Methicillin Resistant Staphylococcus aureus(Critical) VITEK 2 METHOD 10/07/2024 7:40 AM EST [facility] Comment: detected by PCR Isolate saved. If future testing is required, contact the Microbiology Industrial Technician. Gram Stain Aerobic Bottle: Gram positive cocci [...] Dickson MD MICROBIOLOGY - BLOOD ORDERABLES [facility] [place] [address] * Request For 2nd Read CT Lower Extremity (09/26/2024 1:50 PM EST) [employer] WORKSTATION ID [id number] RAD Anatomical Region Laterality Modality Hip, Leg, [...] who have questions please contact the health field care advocate that requested your imaging first. ? Electronically signed by: Lisette Bruno MD, [facility] ([phone]), at 09/26/2024 3:01 PM Narrative 09/26/2024 3:01 PM EST EXAMINATION: REQUEST FOR 2ND READ CT LOWER EXTREMITY CLINICAL HISTORY: Pt s/p LLE femoral-below knee popliteal bypass with PTFE graft, c/f infection surrounding graft, en route to [facility] for possible vascular surgery intervention; Sending Institution [facility]; Date of exam [id number]; I [...] on series 3, image 8 and 641, 292, 440, 162. No other rim-enhancing fluid collection is seen. [...] infection surrounding graft, en route to [facility] for possiblevascular surgery intervention; Sending Institution [facility]; Date of exam [id number]; Ibelieve [...] patients who have questions please contactthe health field care advocate that requested your imaging first. Electronically signed by: Lisette Bruno MD, [facility]([phone]), at 09/26/2024 3:01 PM Marko Dickson MD [...] over 4 Hours, Warning Vesicant/Irritant Medication Per credit union examiner labeling, do not administer or Y-site with [...] Routine documented in this encounter Care Teams Advanced Nursing Professor Relationship Specialty Start Date End Date [place] [address] PCP - General Internal Medicine 09/18/24 documented as of this encounter
--- OUTSIDE RECORDS SUMMARY | 2024-10-31 16:55 | XMS_ITS | Encounter Summary ---
Author Organization [facility] Address [facility] [place] [address] Care Team Providers Care Dewaxer Name Role Phone Charles Romero Primary Care Provider + Encounter Details Date Type Department Care Team (Late st Contact Info) Description 10/07/2024 [place] [address] Amaya Hernandez MD [facility] [place] [address] Social History Tobacco Use Types Packs/Day Years Used Date Smoking Tobacco: Every Day Cigarettes 1 25 Started: 12/28/1986; Last attempted to quit: 12/28/2011 Smokeless Tobacco: Never Alcohol Use Standard Drinks/Week Comments No 0 (1 standard drink = 0.6 oz pur e alcohol) [facility] Utilities Answer Date Recorded In the past 12 months has e electric, gas, oil, or water [employer] threatened to shut off services in your [...] cultures - 09/28 and 09/29 Blood culture [[id number]] (Abnormal) (Susceptibility) Collected: 09/26/24 1422 Lab Status: Edited Result - FINAL Specimen: Blood, Venous Updated: 10/07/24 0740 Blood Culture Methicillin Resistant Staphylococcus aureus Comment: detected by PCR Isolate saved. If future testing is required, contact the Microbiology Field Care Coordinator. Gram Stain Aerobic Bottle: Gram positive cocci [...] MD Infectious Disease Staff Physician Mobile number [phone] 10/07/24 documented in this encounter Plan of Treatment Upcoming Encounters Date Type Department Care Team (Late st Contact Info) Description 11/09/2024 1:30 PM EST Office [place] [address] Isabela Hayward, TOLL PATROLMAN [facility] [place] [address] 11/10/2024 10:00 AM EST Office [place] [phone] Dai Whitman APRN 11/21/2024 2:15 PM EST Office [place] [phone] Dayanara Grover MD [facility] [place] [address] documented as of this encounter Visit Diagnoses Not on filedocumented in this encounter Care Teams Dewaxer Relationship Specialty Start Date End Date Charles Romero PA [facility] [place] [address] PCP - General Internal Medicine 09/18/24 documented as of this encounter
--- OUTSIDE RECORDS SUMMARY | 2024-10-31 16:55 | XMS_ITS | Encounter Summary ---
Author Organization [facility] [place] [address] Care Team Providers Care Tangible Personal Property Appraiser Name Role Phone Charles Romero Primary Care Provider + Reason for Visit * Auth/Cert (Routine) Specialty Diagnoses / Procedures Referred By William t Referred To Contact Diagnoses Vascular graft infection, initial encounter Sepsis [A41.9] T82.7XXA Procedures EMERGENCY IPI Angel Gonsalez MD [facility] [address] [facility] Referral ID Status Reason Start Date Expiration Date Visits Re quested Visits Authorized [id number] 1 1 Encounter Details Date Type Department Care Team (Late st Contact Info) Description 10/04/2024 3:08 PM EST Anesthesia Event [place] [address] Isabel Longoria MD [facility] [place] [address] Lizett Mackay MD [facility] [place] [address] Anesthesia Record Procedure Summary Procedure Name Responsible [...] (15F round drain with bulb); removed by DEVOPS; 10/09/24; 1000 10/02/24 1424 by Guanako Liao RN 10/09/24 1000 by Indira Tracey RN PIV 10/04/24; 1115; olzi-hbm-kbtasy catheter system; 22 gauge; basilic vein (medial [...] drink = 0.6 oz pur e alcohol) [facility] Utilities Answer Date Recorded In the past 12 months has th e [employer], gas, oil, or water [employer] threatened to shut off services in [...] time in the past 12 m [facility], were you homeless or living in [...] Procedure Summary Date: 10/04/24 Room / Location: [facility] OR [address] [place] [address] MAIN OR Anesthesia Start: 1508 Anesthesia Stop: 162 Procedure: DEBRIDEMENT SKIN AND SUBCU, LOWER EXTREMITY (WRVU 1.01) (Left: Leg) Diagnosis: (Status post explant of infected left RESERVATION CLERK-BK pop bypass graft) Surgeons: Marko Dickson MD Responsible Provider: Isabel Longoria MD Anesthesia Type: general ASA Status: 4 All Anesthesia Providers: Anesthesiologist: Lizett Mackay MD; Isabel Longoria MD RN CARDIAC REHAB: Tato Bhatt CRNA Vitals Value Taken Time BP 134/75 10/04/24 1700 Temp 36.2 ??C (97.2 ??F) 10/04/24 1700 Pulse 75 10/04/24 1712 Resp 11 10/04/24 1712 SpO2 98 % 10/04/24 1712 Pain Level 0 10/04/24 1700 Vitals shown include unfiled device data. Patient Location: PACU/[facility] Level of Consciousness: Awake and Alert [...] performed by Thony Garcia MD at [facility] MAIN OR PRO BYPASS GRAFT OTHR, FEM-TIBIAL Left 08/01/2024 @BYPASS GRAFT, FEM-ANT TIBIAL, -POST TIBIAL, -PERONEAL, -DP W\ SYNTHETIC CONDUIT (WRVU 23.66) performed by Lisette Maldonado MD at [facility] MAIN OR PRO CABG, ARTERY-VEIN, SINGLE 01/04/2012 @CABG, VENOUS & ARTERIAL GRAFT;SINGLE VEIN GRAFT performed by INNA TOVAR at [facility] MAIN OR PRO DEBRIDEMENT MUSCLE AND FASCIA 20 SQ CM/< Left 09/29/2024 DEBRIDEMENT SKIN, SUBCU, MUSCLE, LOWER EXTREMITY (WRVU 2.7) performed by Taylor Ruiz MD at [facility] MAIN OR PRO DEBRIDEMENT MUSCLE AND FASCIA 20 SQ CM/< Left 10/02/2024 DEBRIDEMENT SKIN, SUBCU, MUSCLE, LOWER EXTREMITY (WRVU 2.7) performed by Hermila Mccormick MDat [facility] MAIN OR PRO DEBRIDEMENT SUBCUTANEOUS TISSUE 20 SQCM/< Left 09/27/2024 DEBRIDEMENT SKIN AND SUBCU, LOWER EXTREMITY (WRVU 1.01) performed by Hayley Torres MD at [facility] MAIN OR PRO DRAIN LOWER LEG DEEP ABSC/HEMATOMA Left 09/26/2024 INCISION & DRAINAGE, LEG OR ANKLE, DEEP ABSCESS OR HEMATOMA (WRVU 5.23) performed by Hayley Torres MD at [facility] MAIN OR PRO DRAIN LOWER LEG DEEP ABSC/HEMATOMA 09/27/2024 INCISION & DRAINAGE, LEG OR ANKLE, DEEP ABSCESS OR HEMATOMA (WRVU 5.23) performed by Hayley Torres MD at [facility] OR PRO ENDOSCOPY W/VIDEO-ASST VEIN HARVEST, CABG 01/04/2012 ENDOSCOPIC HARVEST VEIN(S) FOR CABG performed by INNA TOVAR at [facility] MAIN OR PRO EXCISION, INFEC GRAFT, EXTREMITY Left 09/26/2024 EXCISION OF INFECTED GRAFT FROM LOWER EXTREMITY (WRVU 9.53) performed by Hayley Torres MD at [facility] OR PRO EXCISION, INFEC GRAFT, EXTREMITY Left 09/28/2024 EXCISION OF INFECTED GRAFT FROM LOWER EXTREMITY (WRVU 9.53) performed by Hayley Torres MD at [facility] OR PRO EXCISION, INFEC GRAFT, EXTREMITY 09/27/2024 EXCISION OF INFECTED GRAFT FROM LOWER EXTREMITY (WRVU 9.53) performed by Hayley Torres MD at [facility] MAIN OR PRO EXPLORATION NOT FOLLOWED BY SURG LOWER EXTREMITY ARTERY Left 09/29/2024 @EXPLORATION W\O SURGICAL REPAIR, FEMORAL ARTERY - JENNIFER (WRVU 7.5) performed by Taylor Ruiz MD at [facility] MAIN OR PRO FORM SKIN PEDICLE FLAP SCALP, ARM, LEG 09/28/2024 FLAP, PEDICLE,W OR W/O TRANSFER, LEGS (WRVU 10.12) performed by Hayley Torres MD at [facility] MAIN OR PRO I&D DEEP ABSCESS BURSA/HEMATOMA THIGH/KNEE REGION Left 09/26/2024 INCISION & DRAINAGE ABSCESS OR HEMATOMA, THIGH, KNEE SUPERFICIAL (WRVU 6.78) performed by Hayley Torres MD at [facility] MAIN OR PRO I&D DEEP ABSCESS BURSA/HEMATOMA THIGH/KNEE REGION 09/27/2024 INCISION & DRAINAGE ABSCESS OR HEMATOMA, THIGH, KNEE SUPERFICIAL (WRVU 6.78) performed by Hayley Torres MD at [facility] MAIN OR PRO REVISION FEMORAL ANAST BPG GROIN OPEN W/NONAUTOG PATCH GRAFT Left 09/28/2024 REV. FEM. ANASTOMOSIS OF SYN. BYPASS GRAFT USING NONAUTOGENOUS PATCH ANGIOPLASTY-JENNIFER (WRVU 23.15) performed by Hayley Torres MD at [facility] MAIN OR PRO UNLISTED PROCEDURE VASCULAR SURGERY Left 09/28/2024 HARVEST SAPHENOUS VEIN (WRVU 13.24) performed by Hayley Torres MD at [facility] MAIN OR VS ARTERIOGRAM LOWER EXTREMITY VASCULAR SURGERY 07/20/2024 VS Arteriogram Lower Extremity Vascular Surgery 07/20/2024 Taylor Ruiz MD [facility] INTERVENTIONL RAD Social History Tobacco Use Smoking [...] with patient. Plan discussed with attending and RN CARDIAC REHAB. Anesthesia Screening documented in this encounter Plan of Treatment Upcoming Encounters Date Type Department Care Team (Late st Contact Info) Description 11/09/2024 1:30 PM EST Office Visit [place] [address] Isabela Hayward, DEVOPS [facility] [place] [address] 11/10/2024 10:00 AM EST Office Visit [place] [phone] Dai Whitman, RESHMA 11/21/2024 2:15 PM EST Office [place] [phone] Dayanara Grover MD [facility] [place] [address] documented as of this encounter Visit Diagnoses [...] mg documented in this encounter Care Teams Tangible Personal Property Appraiser Relationship Specialty Start Date End Date Charles Romero PA [place] [address] PCP - General Internal Medicine 09/18/24 documented as of this encounter
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
--- OUTSIDE RECORDS SUMMARY | 2024-10-31 16:57 | XMS_ITS | Encounter Summary ---
Author Organization [facility] Jean [place] [address] Care Team Providers Care Finisher Fine Diamond Dies Name Role Phone Charles Romero Primary Care Provider + Reason for Visit * Auth/Cert (Routine) Specialty Diagnoses / Procedures Referred By William moses Referred To Contact Diagnoses Vascular graft infection, initial encounter Sepsis [A41.9] T82.7XXA Procedures EMERGENCY IPI Angel Gonsalez MD [facility] [place] [address] [facility] Referral ID Status Reason Start Date Expiration Date Visits Re quested Visits Authorized [id number] 1 1 Encounter Details Date Type Department Care Team (Late st Contact Info) Description 10/04/2024 3:38 PM EST - 10/04/2024 5:32 PM EST [place] [address] Marko Dickson MD [facility] [place] [address] DEBRIDEMENT SKIN AND SUBCU, LOWER EXTREMITY (WRVU 1.01) Social History Tobacco Use Types Packs/Day Years Used Date Smoking Tobacco: Every Day Cigarettes 1 25 Started: 12/28/1986; Last attempted to quit: 12/28/2011 Smokeless Tobacco: Never Alcohol Use Standard Drinks/Week Comments No 0 (1 standard drink = 0.6 oz pur e alcohol) [facility] Utilities Answer Date Recorded In the [...] Operations/Major Procedures: 09/26/24: Explant of infected LEFT TURN OPERATOR to below-knee popliteal artery PTFE bypass [...] 2nd toe amputation who was transferred from [facility] given concern for infected left fem-BK popliteal [...] pericardial patch and PTFE willard over the TURN OPERATOR was unincorporated. - Resection of prior [...] juice or regular (not diet) soda 6 StyroPowers small box of raisins 4 glucose tablets [...] 2 tablespoons of dried fruit. Milk and rd-zelne-csehq yogurt have 15 grams of carbs in a serving. A serving is 1 cup of milk or 3/4 cup (6 oz) of cq-vxnfv-wyvda yogurt. Starchy vegetables have 15 grams of carbs in a serving. A serving is ?? cup of mashed potatoes or sweet potato; 1 cup winter squash; ?? of a small baked potato; ?? cup of cooked beans; or ?? cup cooked corn or green peas. Learn how much carbs to eat each day and at each meal. A dietitian or certified personal chef can teach you how to keep track [...] was scheduled for a f/u nutrition evaluation. Timber Framer Helper met pt at bedside. Pt sharedthat his [...] Based on current findings- home (sister & srdesdp-ab-lbw's home) Consult Recommendations: No other consults recommended [...] Loss: None Karolyn Hudson MD Vascular Surgery, 8504 10/09/24 Important Studies and Lab Data: Labs: [...] 05/29/2024, no significant changes. Procedure Limited - 08138. Doppler - 09279. Color Doppler - 64936. Suboptimal quality. This study is limited because [...] on series 3, image 8 and 641, 672, 423, 962. No other rim-enhancing fluid collection is seen. [...] wedged between the vastus medialis and adductor Buhl muscle. This tracks into the popliteal fossa [...] PM Isabela Hayward APRN Infectious Disease at [facility] Arrive at: Home [phone] To view instructions for your video visit, click here, or visit this website: [email or web address] If you have not previously downloaded the [facility] patient portal software, Collect, please do so by clicking one of the links below or searching in your device's lobito store. [employer] Do [employer] And[employer]ora devices 11/09/2024 1:30 PM Isabela Hayward APRN Infectious Disease at [facility] Arrive at: [employer] [phone] 11/21/2024 2:15 PM Dayanara Grover MD Endocrinology at [facility] Arrive at: [employer] 3A [phone] Future Orders Complete By Expires CBC (with Diff) [FLP722 Custom] 10/17/2024 12/11/2024 Process Instructions: INCLUDES: WBC, RBC, Hgb, Hct, Platelets, RBC Indices and Differential Scheduling Instructions: Comments: Questions: OPAT: Order / Recommendation for Post Discharge IV Antibiotic Management [EID950 CPT(R)] As directed Process Instructions: If no progress note charted, please enter Clinical details in comments. Scheduling Instructions: Comments: - If this order was signed greater than 72 hours prior to [facility] discharge, please call to confirm the accuracy of this order. Please Fax all results to: OPAT Program Infectious Disease Section [facility], [place] [address] FAX: - After hours, please contact the Infectious Disease Physician aircraft air conditioning mechanic at . - Line care instructions - see flush/heparin orders. Facilities may follow organizational policies/practices regarding heparin. - FDC for medication administration/supervisor aircraft maintenance and catheter care/maintenance authorized. - CVC/PICC Dressing Change weekly and PRN Please use CHG or Bio Patch RN: Please care for PICC line including dressing changes weekly and prn. Please draw labs every Wednesday and PRN and fax results to OPAT at [phone]. Please draw labs off PICC line. Please see Psychiatricder for lab draw details. Please RN visit for IV ABX teaching and ongoing assessment. Fpc for Medication Administration/Hookup and catheter care/maintenance: - [...] Wednesday CPK Attending Responsible for IV Antimicrobials: Aamya Hernandez MD Referral for Outpatient Antibiotics [MQY2846 CPT(R)] As directed Process Instructions: Scheduling Instructions: [...] for admission to Home Health. [address] [place] [address] Phone Number: [phone] (home) Date of : 1975 Inpatient DOCUMENTATION FOR VNA SERVICES (INCLUDING THOSE PATIENTS WITH MEDICARE COVERAGE REQUIRING HOME VNA SERVICES AND/OR HOSPICE SERVICES) PATIENT'S LOCATION: Geovanna Dixon Jr. [address] [place] [address] [phone] (home) Cell: Telephone Information: Drug And Alcohol Counselor's Name: Geovanna In discussion with the attending physician, it is certified that this patient is under their care and that they, or a Nurse Practitioner, Clinical Nurse specialist or Physician Nut Orchardist who is working directly with them, had [...] for managing ADLs. HOME HEALTH CARE AGENCY: [facility] [address] [place] [address] START OF CARE: within 24-48 hours of discharge Patient has Medicare Please note that any additional orders needs or changes will need to be obtained from this patient's PCP: JUSTIN Roberson [address] / [facility] [address] . All VNA agencies which cover the area of patient's residence have been reviewed, either verbally or in writing, andpatient/family have chosen the home health care agency noted. Questions: Disciplines Requested: Nursing Physical Therapy Occupational Therapy Recurring Lab Work Interval Expires CBC (with Diff) [[id number] Custom] Once a week until 12/10/2024 12/10/2024 [...] For any problems or questions please call [phone] For issues on weeknights after 5pm and weekends please call [phone] and ask for the Vascular Fellow aircraft air conditioning mechanic. Discharge Medications: Your Medications New Medications Dose [...] - See Instructions). FLUSH PROTOCOL WITH MEDICATIONS ([facility]): Before med infusion: flush with NS 10 [...] - See Instructions). FLUSH PROTOCOL WITH MEDICATIONS ([facility]): Before med infusion: flush with NS 10 [...] can get this completed at 3L at [facility] prior to your scheduled appointment. Stop [...] For any problems or questions please call [phone] For issues on weeknights after 5pm and weekends please call [phone] and ask for the Vascular Fellow aircraft air conditioning mechanic. documented in this encounter Discharge Instructions * [...] 2 tablespoons of dried fruit. Milk and nd-rvsmw-bzbbc yogurt have 15 grams of carbs in a serving. A serving is 1 cup of milk or 3/4 cup (6 oz) of xi-mqdua-qmmbv yogurt. Starchy vegetables have 15 grams of carbs in a serving. A serving is ?? cup of mashed potatoes or sweet potato; 1 cup winter squash; ?? of a small baked potato; ?? cup of cooked beans; or ?? cup cooked corn or green peas. Learn how much carbs to eat each day and at each meal. A dietitian or certified personal chef can teach you how to keep track [...] can get this completed at 3L at [facility] prior to your scheduled appointment. Stop [...] For any problems or questions please call [phone] For issues on weeknights after 5pm and weekends please call [phone] and ask for the Vascular Fellow aircraft air conditioning mechanic. documented in this encounter Medications at Time [...] - See Instructions). FLUSH PROTOCOL WITH MEDICATIONS ([facility]): Before med infusion: flush with NS 10 [...] - See Instructions). FLUSH PROTOCOL WITH MEDICATIONS ([facility]): Before med infusion: flush with NS 10 [...] to contact. Reviewed roles and responsibilities of SHIRT HEMMER and infusion vendor. Contact information for ID and Vascular team/clinic, SHIRT HEMMER and infusion vendor given to pt. Discussed f/u appointments in ID 5C clinic, telephone and tele health. Pt verbalized understanding. All questions answered. IV & PO ABX Medications: Daptomycin 700mg IV daily Start/anticipated end date: 10/10/24-11/10/24 SHIRT HEMMER: [place] Infusion vendor: [facility] Care IV Access: 4 Fr. [...] 2 tablespoons of dried fruit. Milk and nx-lsaet-xaipj yogurt have 15 grams of carbs in a serving. A serving is 1 cup of milk or 3/4 cup (6 oz) of bb-stuos-pldlo yogurt. Starchy vegetables have 15 grams of carbs in a serving. A serving is ?? cup of mashed potatoes or sweet potato; 1 cup winter squash; ?? of a small baked potato; ?? cup of cooked beans; or ?? cup cooked corn or green peas. Learn how much carbs to eat each day and at each meal. A dietitian or certified personal chef can teach you how to keep track [...] this time. OT to complete orders. Pager: [phone] Fabián Burrows OT 10/09/2024 Occupational Therapy Rehabilitation [...] Loss: None Karolyn Hudson MD Vascular Surgery, 6372 10/09/24 * Terry Jimenez, PT - 10/09/2024 12:02 PM EST Physical Therapy Visit #2 Patient profile: Geovanna Dixon Jr. is a 49 y.o. male with a history of HTN, HLD, NSTEMI, CAD s/p CABG (12/2011), DM,obesity, PAD s/p L iliofem endart and L fem-BK pop bypass and L 2nd toe amputation who was transferred from [facility], 09/26/24 given concern for infected left fem-BK popliteal PTFE bypass. He is now s/p an explant of an infected left femoral-below knee popliteal artery bypass graft (09/26), I/D groin abscess (09/27), L GSV harvest, vein patch angioplasty, L TURN OPERATOR and BK pop w/ sartorius flap L fem, I/D, 09/29 L sartorius flap revision, vac change. 10/03/24 NPO at [facility] for OR wound exploration. Wound [...] He mentions he'll stay with sister and duhzanq-tw-mmn upon DC. Pt resting in bed upon [...] up with R and down with L, fmln-dk-bvgn. Balance: Sitting: NORMAL- EOB unsupported good postural [...] Based on current findings- home (sister & qhjlzvz-ko-gql's home) Consult Recommendations: No other consults recommended [...] 15 (TE-F) minutes TERRY JIMENEZ, PT Pager: [phone] Physical Therapy Inpatient Rehabilitation Department * María Carranza, FAIRGROUND OPERATOR - 10/09/2024 11:14 AM EST Images from the original note were not included. Vascular Surgery Progress Note Geovanna Dixon Jr. is a 49 y.o. male with history of HTN, HLD, NSTEMI, CAD s/p CABG (12/2011), DM, obesity, PAD s/p L iliofem endart and L fem-BK pop bypass and L 2nd toe amputation who was transferred from [facility] given concern for infected left fem-BK popliteal [...] smoking 1 week ago. He presented to [facility] on 09/26 and went to the [...] (porcine) 5,000 Units Subcutaneous Q8H [facility] lidocaine 1 patch Transdermal Q24H [...] Procedure Component Value - Date/Time Blood culture [[id number]] (Abnormal) (Susceptibility) Collected: 09/26/24 1422 Lab Status: Edited Result - FINAL Specimen: Blood, Venous Updated: 10/07/24 0740 Blood Culture Methicillin Resistant Staphylococcus aureus Comment: detected by PCR Isolate saved. If future testing is required, contact the Microbiology Steam Setter. Gram Stain Aerobic Bottle: Gram positive cocci in clusters Susceptibility Methicillin Resistant Staphylococcus aureus MINIMUM INHIBITORY CONCENTRATION VITEK 2 METHOD Clindamycin Resistant Daptomycin Susceptible Gentamicin Susceptible [1] Linezolid Susceptible Oxacillin Resistant Trimethoprim/Sulfa Susceptible Vancomycin Susceptible [1] Gentamicin is not appropriate for monotherapy for gram-positive infections. AFB culture [[id number]] Collected: 09/27/24 1654 Lab Status: Preliminary result Specimen: Tissue from Thigh, Left Updated: 10/05/24 1201 Acid Fast Bacilli Culture No acid fast bacilli isolated at 1 week. Acid Fast Stain No acid fast bacilli seen Blood culture [[id number]] Collected: 09/29/242123 Lab Status: Final result Specimen: Blood, Venous Updated: 10/04/24 2301 Blood Culture No growth at 120 hours Blood culture [[id number]] Collected: 09/29/242123 Lab Status: Final result Specimen: Blood, Venous Updated: 10/04/24 2301 Blood Culture No growth at 120 hours AFB culture [[id number]] Collected: 09/26/24 1702 Lab Status: Preliminary result Specimen: Abscess from Knee, Left Updated: 10/04/24 1201 Acid Fast Bacilli Culture No acid fast bacilli isolated at 1 week. Acid Fast Stain No acid fast bacilli seen Blood culture [[id number]] Collected: 09/28/24 1749 Lab Status: Final result [...] 2nd toe amputation who was transferred from [facility] given concern for infected left fem-BK popliteal PTFE bypass. He is now s/p an explantof an infected left femoral-below knee popliteal artery bypass graft (09/26), I/D groin abscess (), L GSV harvest, vein patch angioplasty, L TURN OPERATOR and BK pop w/ sartorius flap L fem, I/D, 09/29 L sartorius flap revision, vac change. 10/09/24: Progressing well post surgically. Will pull medial thigh drain today, retain sartorius flap drain along with wound vac x 3 sponges ([facility] has approved for home vac) and [...] PRN PICC dressing change completed as per [facility] protocol. Positive pressure displacement connector (Max [...] 2nd toe amputation who was transferred from [facility] given concern for infected left fem-BK popliteal [...] smoking 1 week ago. He presented to [facility] on 09/26 and went to the [...] Procedure Component Value - Date/Time Blood culture [[id number]] (Abnormal) (Susceptibility) Collected: 09/26/24 1422 Lab Status: Edited Result - FINAL Specimen: Blood, Venous Updated: 10/07/24 0740 Blood Culture Methicillin Resistant Staphylococcus aureus Comment: detected by PCR Isolate saved. If future testing is required, contact the Microbiology Steam Setter. Gram Stain Aerobic Bottle: Gram positive cocci in clusters Susceptibility Methicillin Resistant Staphylococcus aureus MINIMUM INHIBITORY CONCENTRATION VITEK 2 METHOD Clindamycin Resistant Daptomycin Susceptible Gentamicin Susceptible [1] Linezolid Susceptible Oxacillin Resistant Trimethoprim/Sulfa Susceptible Vancomycin Susceptible [1] Gentamicin is not appropriate for monotherapy for gram-positive infections. AFB culture [[id number]] Collected: 09/27/24 165 Lab Status: Preliminary result Specimen: Tissue from Thigh, Left Updated: 10/05/24 1201 Acid Fast Bacilli Culture No acid fast bacilli isolated at 1 week. Acid Fast Stain No acid fast bacilli seen Blood culture [[id number]] Collected: 09/29/242123 Lab Status: Final result Specimen: Blood, Venous Updated: 10/04/24 2301 Blood Culture No growth at 120 hours Blood culture [[id number]] Collected: 09/29/242123 Lab Status: Final result Specimen: Blood, Venous Updated: 10/04/24 2301 Blood Culture No growth at 120 hours AFB culture [[id number]] Collected: 09/26/24 1702 Lab Status: Preliminary result Specimen: Abscess from Knee, Left Updated: 10/04/24 1201 Acid Fast Bacilli Culture No acid fast bacilli isolated at 1 week. Acid Fast Stain No acid fast bacilli seen Blood culture [[id number]] Collected: 09/28/24 1749 Lab Status: Final result Specimen: Blood, Venous Updated: 10/03/24 1901 Blood Culture No growth at 120 hours Blood culture [[id number]] (Abnormal) Collected: 09/27/24 2133 Lab Status: Final result Specimen: Blood, Venous Updated: 10/02/24 0804 Blood Culture Methicillin Resistant Staphylococcus aureus Comment: Susceptibilities previously reported. Gram Stain Aerobic Bottle: Gram positive cocci in clusters Tissue Culture, Aerobic & Anaerobic [[id number]] Collected: 09/27/241653 Lab Status: Final result Specimen: Tissue from Thigh, Left Updated: 10/01/24 1554 Narrative: The following orders were created for panel order Tissue Culture, Aerobic & Anaerobic. Procedure Abnormality Status --------- ------ Tissue Culture, Aerobic ...[[id number]] Anaerobic Culture[[id number]] Final result Please view results for these tests on the individual orders. Anaerobic Culture [[id number]] Collected: 09/27/241653 Lab Status: Final result Specimen: Tissue from Thigh, Left Updated: 10/01/24 1554 Anaerobic Culture No anaerobic organisms isolated Tissue Culture, Aerobic Only [[id number]] (Abnormal) (Susceptibility) Collected: 09/27/241653 Lab Status: Final [...] 2nd toe amputation who was transferred from [facility] given concern for infected left fem-BK popliteal PTFE bypass. He is now s/p an explantof an infected left femoral-below knee popliteal artery bypass graft (09/26), I/D groin abscess (), L GSV harvest, vein patch angioplasty, L TURN OPERATOR and BK pop w/ sartorius flap [...] 81mg daily Vibha Benson APRN 10/08/2024 Pager: [phone] * Vibha Benson APRN - 10/07/2024 8:52 AM EST Images from the original note were not included. Vascular Surgery Progress Note Geovanna Dixon Jr. is a 49 y.o. male with history of HTN, HLD, NSTEMI, CAD s/p CABG (12/2011), DM, obesity, PAD s/p L iliofem endart and L fem-BK pop bypass and L 2nd toe amputation who was transferred from [facility] given concern for infected left fem-BK popliteal [...] smoking 1 week ago. He presented to [facility] on 09/26 and went to the [...] TID WC acetaminophen 975 mg Oral Q6H JOES atorvastatin 80 mg Oral QPM aspirin EC [...] Procedure Component Value - Date/Time Blood culture [[id number]] (Abnormal) (Susceptibility) Collected: 09/26/24 1422 Lab Status: Edited Result - FINAL Specimen: Blood, Venous Updated: 10/07/24 0740 Blood Culture Methicillin Resistant Staphylococcus aureus Comment: detected by PCR Isolate saved. If future testing is required, contact the Microbiology Steam Setter. Gram Stain Aerobic Bottle: Gram positive cocci in clusters Susceptibility Methicillin Resistant Staphylococcus aureus MINIMUM INHIBITORY CONCENTRATION VITEK 2 METHOD Clindamycin Resistant Daptomycin Susceptible Gentamicin Susceptible [1] Linezolid Susceptible Oxacillin Resistant Trimethoprim/Sulfa Susceptible Vancomycin Susceptible [1] Gentamicin is not appropriate for monotherapy for gram-positive infections. AFB culture [[id number]] Collected: 09/27/24 165 Lab Status: Preliminary result Specimen: Tissue from Thigh, Left Updated: 10/05/24 1201 Acid Fast Bacilli Culture No acid fast bacilli isolated at 1 week. Acid Fast Stain No acid fast bacilli seen Blood culture [[id number]] Collected: 09/29/242123 Lab Status: Final result Specimen: Blood, Venous Updated: 10/04/24 2301 Blood Culture No growth at 120 hours Blood culture [[id number]] Collected: 09/29/242123 Lab Status: Final result Specimen: Blood, Venous Updated: 10/04/24 2301 Blood Culture No growth at 120 hours AFB culture [[id number]] Collected: 09/26/24 1702 Lab Status: Preliminary result Specimen: Abscess from Knee, Left Updated: 10/04/24 1201 Acid Fast Bacilli Culture No acid fast bacilli isolated at 1 week. Acid Fast Stain No acid fast bacilli seen Blood culture [[id number]] Collected: 09/28/24 1749 Lab Status: Final result Specimen: Blood, Venous Updated: 10/03/24 1901 Blood Culture No growth at 120 hours Blood culture [[id number]] (Abnormal) Collected: 09/27/24 2133 Lab Status: Final result Specimen: Blood, Venous Updated: 10/02/24 0804 Blood Culture Methicillin Resistant Staphylococcus aureus Comment: Susceptibilities previously reported. Gram Stain Aerobic Bottle: Gram positive cocci in clusters Tissue Culture, Aerobic & Anaerobic [[id number]] Collected: 09/27/24 165 Lab Status: Final result Specimen: Tissue from Thigh, Left Updated: 10/01/24 1554 Narrative: The following orders were created for panel order Tissue Culture, Aerobic & Anaerobic. Procedure Abnormality Status --------- ------ Tissue Culture, Aerobic ...[[id number]] Anaerobic Culture[[id number]] Final result Please view results for these tests on the individual orders. Anaerobic Culture [[id number]] Collected: 09/27/24 165 Lab Status: Final result Specimen: Tissue from Thigh, Left Updated: 10/01/24 1554 Anaerobic Culture No anaerobic organisms isolated Tissue Culture, Aerobic Only [[id number]] (Abnormal) (Susceptibility) Collected: 09/27/24 165 Lab Status: [...] is considered susceptible to doxycycline. Blood culture [[id number]] (Abnormal) Collected: 09/26/24 1845 Lab Status: Final result Specimen: Blood, Venous Updated: 10/01/24 0658 Blood Culture Methicillin Resistant Staphylococcus aureus Comment: isolated. Susceptibilities previously reported. Gram Stain Aerobic Bottle: Gram positive cocci in clusters Abscess/Wound Aspirate Culture, Aerobic & Anaerobic [[id number]] (Abnormal) Collected: 09/26/241649 Lab Status: Final result Specimen: Abscess from Groin, Left Updated: 09/30/24 155 Narrative: The following orders were created for panel order Abscess/Wound Aspirate Culture, Aerobic & Anaerobic. Procedure Abnormality Status --------- ------ Abscess/Wound Aspirate C...[[id number]] Abnormal Final result Anaerobic Culture[[id number]] Final result Please view results for these tests on the individual orders. Anaerobic Culture [[id number]] Collected: 09/26/24 165 Lab Status: Final result Specimen: Abscess from Groin, Left Updated: 09/30/24 155 Anaerobic Culture No anaerobic organisms isolated Abscess/Wound Aspirate Culture, Aerobic & Anaerobic [[id number]] (Abnormal) Collected: 09/26/24 1702 Lab Status: Final result Specimen: Abscess from Knee, Left Updated: 09/30/24 1551 Narrative: The following orders were created for panel order Abscess/Wound Aspirate Culture, Aerobic & Anaerobic. Procedure Abnormality Status --------- ------ Abscess/Wound Aspirate C...[[id number]] Abnormal Final result Anaerobic Culture[[id number]] Final result Please view results for these tests on the individual orders. Anaerobic Culture [[id number]] Collected: 09/26/24 1702 Lab Status: Final result Specimen: Abscess from Knee, Left Updated: 09/30/24 1551 Anaerobic Culture No anaerobic organisms isolated Sonicated Tissue/Implant Culture [[id number]] (Abnormal) Collected: 09/26/24 1716 Lab Status: Final result Specimen: Vascular Graft from Leg, Left Updated: 09/30/24 1349 Sonicated Tissue/Implant Culture Methicillin Resistant Staphylococcus aureus Comment: isolated from broth culture. Susceptibilities previously reported. Abscess/Wound Aspirate Culture, Aerobic Only [[id number]] (Abnormal) (Susceptibility) Collected: 09/26/24 1702 Lab Status: [...] to doxycycline. Abscess/Wound Aspirate Culture, Aerobic Only [[id number]] (Abnormal) (Susceptibility) Collected: 09/26/24 1650 Lab Status: [...] 2nd toe amputation who was transferred from [facility] given concern for infected left fem-BK popliteal PTFE bypass. He is now s/p an explantof an infected left femoral-below knee popliteal artery bypass graft (09/26), I/D groin abscess (), L GSV harvest, vein patch angioplasty, L TURN OPERATOR and BK pop w/ sartorius flap [...] 81mg daily Vibha Benson APRN 10/07/2024 Pager: [phone] * Karina-Jessica Mcrae, PT - 10/06/2024 3:21 PM EST 10/06/24 3220 Evaluation & Treatment Document Type contact Comment, [...] 2nd toe amputation who was transferred from [facility] given concern for infected left fem-BK popliteal [...] smoking 1 week ago. He presented to [facility] on 09/26 and went to the [...] Procedure Component Value - Date/Time AFB culture [[id number]] Collected: 09/27/241653 Lab Status: Preliminary result Specimen: Tissue from Thigh, Left Updated: 10/05/24 1201 Acid Fast Bacilli Culture No acid fast bacilli isolated at 1 week. Acid Fast Stain No acid fast bacilli seen Blood culture [[id number]] Collected: 09/29/242123 Lab Status: Final result Specimen: Blood, Venous Updated: 10/04/24 2301 Blood Culture No growth at 120 hours Blood culture [[id number]] Collected: 09/29/242123 Lab Status: Final result Specimen: Blood, Venous Updated: 10/04/24 2301 Blood Culture No growth at 120 hours AFB culture [[id number]] Collected: 09/26/24 170 Lab Status: Preliminary result Specimen: Abscess from Knee, Left Updated: 10/04/24 1201 Acid Fast Bacilli Culture No acid fast bacilli isolated at 1 week. Acid Fast Stain No acid fast bacilli seen Blood culture [[id number]] Collected: 09/28/24 1749 Lab Status: Final result Specimen: Blood, Venous Updated: 10/03/24 1901 Blood Culture No growth at 120 hours Blood culture [[id number]] (Abnormal) Collected: 09/27/242132 Lab Status: Final result Specimen: Blood, Venous Updated: 10/02/24 0804 Blood Culture Methicillin Resistant Staphylococcus aureus Comment: Susceptibilities previously reported. Gram Stain Aerobic Bottle: Gram positive cocci in clusters Tissue Culture, Aerobic & Anaerobic [[id number]] Collected: 09/27/241653 Lab Status: Final result Specimen: Tissue from Thigh, Left Updated: 10/01/24 1554 Narrative: The following orders were created for panel order Tissue Culture, Aerobic & Anaerobic. Procedure Abnormality Status --------- ------ Tissue Culture, Aerobic ...[[id number]] Anaerobic Culture[[id number]] Final result Please view results for these tests on the individual orders. Anaerobic Culture [[id number]] Collected: 09/27/241653 Lab Status: Final result Specimen: Tissue from Thigh, Left Updated: 10/01/24 1554 Anaerobic Culture No anaerobic organisms isolated Tissue Culture, Aerobic Only [[id number]] (Abnormal) (Susceptibility) Collected: 09/27/24 1654 Lab Status: [...] is considered susceptible to doxycycline. Blood culture [[id number]] (Abnormal) (Susceptibility) Collected: 09/26/24 1422 Lab Status: Edited Specimen: Blood, Venous Updated: 10/01/24 0658 Blood Culture Methicillin Resistant Staphylococcus aureus Comment: detected by PCR Isolate saved. If future testing is required, contact the Microbiology Steam Setter. Gram Stain Aerobic Bottle: Gram positive cocci in clusters Susceptibility Methicillin Resistant Staphylococcus aureus VITEK 2 METHOD Clindamycin Resistant Gentamicin Susceptible [1] Linezolid Susceptible Oxacillin Resistant Trimethoprim/Sulfa Susceptible Vancomycin Susceptible [1] Gentamicin is not appropriate for monotherapy for gram-positive infections. Blood culture [[id number]] (Abnormal) Collected: 09/26/24 1845 Lab Status: Final result Specimen: Blood, Venous Updated: 10/01/24 0658 Blood Culture Methicillin Resistant Staphylococcus aureus Comment: isolated. Susceptibilities previously reported. Gram Stain Aerobic Bottle: Gram positive cocci in clusters Abscess/Wound Aspirate Culture, Aerobic & Anaerobic [[id number]] (Abnormal) Collected: 09/26/24 165 Lab Status: Final result Specimen: Abscess from Groin, Left Updated: 09/30/24 1551 Narrative: The following orders were created for panel order Abscess/Wound Aspirate Culture, Aerobic & Anaerobic. Procedure Abnormality Status --------- ------ Abscess/Wound Aspirate C...[[id number]] Abnormal Final result Anaerobic Culture[[id number]] Final result Please view results for these tests on the individual orders. Anaerobic Culture [[id number]] Collected: 09/26/24 165 Lab Status: Final result Specimen: Abscess from Groin, Left Updated: 09/30/24 1551 Anaerobic Culture No anaerobic organisms isolated Abscess/Wound Aspirate Culture, Aerobic & Anaerobic [[id number]] (Abnormal) Collected: 09/26/24 1702 Lab Status: Final result Specimen: Abscess from Knee, Left Updated: 09/30/24 1551 Narrative: The following orders were created for panel order Abscess/Wound Aspirate Culture, Aerobic & Anaerobic. Procedure Abnormality Status --------- ------ Abscess/Wound Aspirate C...[[id number]] Abnormal Final result Anaerobic Culture[[id number]] Final result Please view results for these tests on the individual orders. Anaerobic Culture [[id number]] Collected: 09/26/24 1702 Lab Status: Final result Specimen: Abscess from Knee, Left Updated: 09/30/24 1551 Anaerobic Culture No anaerobic organisms isolated Sonicated Tissue/Implant Culture [[id number]] (Abnormal) Collected: 09/26/24 1716 Lab Status: Final result Specimen: Vascular Graft from Leg, Left Updated: 09/30/24 1349 Sonicated Tissue/Implant Culture Methicillin Resistant Staphylococcus aureus Comment: isolated from broth culture. Susceptibilities previously reported. Abscess/Wound Aspirate Culture, Aerobic Only [[id number]] (Abnormal) (Susceptibility) Collected: 09/26/24 1702 Lab Status: [...] to doxycycline. Abscess/Wound Aspirate Culture, Aerobic Only [[id number]] (Abnormal) (Susceptibility) Collected: 09/26/24 1650 Lab Status: [...] 2nd toe amputation who was transferred from [facility] given concern for infected left fem-BK popliteal PTFE bypass. He is now s/p an explantof an infected left femoral-below knee popliteal artery bypass graft (09/26), I/D groin abscess (), L GSV harvest, vein patch angioplasty, L TURN OPERATOR and BK pop w/ sartorius flap [...] 81mg daily Benjamin Iniguez MD 10/06/2024 Pager: [phone] * Benjamin Iniguez MD - 10/05/2024 7:42 AM EST Images from the original note were not included. Vascular Surgery Progress Note Geovanna Dixon Jr. is a 49 y.o. male with history of HTN, HLD, NSTEMI, CAD s/p CABG (12/2011), DM, obesity, PAD s/p L iliofem endart and L fem-BK pop bypass and L 2nd toe amputation who was transferred from [facility] given concern for infected left fem-BK popliteal [...] smoking 1 week ago. He presented to [facility] on 09/26 and went to the [...] (porcine) 5,000 Units Subcutaneous Q8H [facility] lidocaine 1 patch Transdermal Q24H [...] Procedure Component Value - Date/Time Blood culture [[id number]] Collected: 09/29/242123 Lab Status: Final result Specimen: Blood, Venous Updated: 10/04/24 230 Blood Culture No growth at 120 hours Blood culture [[id number]] Collected: 09/29/242123 Lab Status: Final result Specimen: Blood, Venous Updated: 10/04/24 230 Blood Culture No growth at 120 hours AFB culture [[id number]] Collected: 09/26/24 1702 Lab Status: Preliminary result Specimen: Abscess from Knee, Left Updated: 10/04/24 1201 Acid Fast Bacilli Culture No acid fast bacilli isolated at 1 week. Acid Fast Stain No acid fast bacilli seen Blood culture [[id number]] Collected: 09/28/24 1749 Lab Status: Final result Specimen: Blood, Venous Updated: 10/03/24 1901 Blood Culture No growth at 120 hours Blood culture [[id number]] (Abnormal) Collected: 09/27/242132 Lab Status: Final result Specimen: Blood, Venous Updated: 10/02/24 0804 Blood Culture Methicillin Resistant Staphylococcus aureus Comment: Susceptibilities previously reported. Gram Stain Aerobic Bottle: Gram positive cocci in clusters Tissue Culture, Aerobic & Anaerobic [[id number]] Collected: 09/27/241653 Lab Status: Final result Specimen: Tissue from Thigh, Left Updated: 10/01/24 1554 Narrative: The following orders were created for panel order Tissue Culture, Aerobic & Anaerobic. Procedure Abnormality Status --------- ------ Tissue Culture, Aerobic ...[[id number]] Anaerobic Culture[[id number]] Final result Please view results for these tests on the individual orders. Anaerobic Culture [[id number]] Collected: 09/27/241653 Lab Status: Final result Specimen: Tissue from Thigh, Left Updated: 10/01/24 1554 Anaerobic Culture No anaerobic organisms isolated Tissue Culture, Aerobic Only [[id number]] (Abnormal) (Susceptibility) Collected: 09/27/241653 Lab Status: Final [...] is considered susceptible to doxycycline. Blood culture [[id number]] (Abnormal) (Susceptibility) Collected: 09/26/24 1422 Lab Status: Final result Specimen: Blood, Venous Updated: 10/01/24 0658 Blood Culture Methicillin Resistant Staphylococcus aureus Comment: detected by PCR Isolate saved. If future testing is required, contact the Microbiology Steam Setter. Gram Stain Aerobic Bottle: Gram positive cocci in clusters Susceptibility Methicillin Resistant Staphylococcus aureus VITEK 2 METHOD Clindamycin Resistant Gentamicin Susceptible [1] Linezolid Susceptible Oxacillin Resistant Trimethoprim/Sulfa Susceptible Vancomycin Susceptible [1] Gentamicin is not appropriate for monotherapy for gram-positive infections. Blood culture [[id number]] (Abnormal) Collected: 09/26/24 1845 Lab Status: Final result Specimen: Blood, Venous Updated: 10/01/24 0658 Blood Culture Methicillin Resistant Staphylococcus aureus Comment: isolated. Susceptibilities previously reported. Gram Stain Aerobic Bottle: Gram positive cocci in clusters Abscess/Wound Aspirate Culture, Aerobic & Anaerobic [[id number]] (Abnormal) Collected: 09/26/24 165 Lab Status: Final result Specimen: Abscess from Groin, Left Updated: 09/30/24 1551 Narrative: The following orders were created for panel order Abscess/Wound Aspirate Culture, Aerobic & Anaerobic. Procedure Abnormality Status --------- ------ Abscess/Wound Aspirate C...[[id number]] Abnormal Final result Anaerobic Culture[[id number]] Final result Please view results for these tests on the individual orders. Anaerobic Culture [[id number]] Collected: 09/26/241649 Lab Status: Final result Specimen: Abscess from Groin, Left Updated: 09/30/24 1551 Anaerobic Culture No anaerobic organisms isolated Abscess/Wound Aspirate Culture, Aerobic & Anaerobic [[id number]] (Abnormal) Collected: 09/26/24 170 Lab Status: Final result Specimen: Abscess from Knee, Left Updated: 09/30/24 1551 Narrative: The following orders were created for panel order Abscess/Wound Aspirate Culture, Aerobic & Anaerobic. Procedure Abnormality Status --------- ------ Abscess/Wound Aspirate C...[[id number]] Abnormal Final result Anaerobic Culture[[id number]] Final result Please view results for these tests on the individual orders. Anaerobic Culture [[id number]] Collected: 09/26/24 170 Lab Status: Final result Specimen: Abscess from Knee, Left Updated: 09/30/24 1551 Anaerobic Culture No anaerobic organisms isolated Sonicated Tissue/Implant Culture [[id number]] (Abnormal) Collected: 09/26/24 1716 Lab Status: Final result Specimen: Vascular Graft from Leg, Left Updated: 09/30/24 1349 Sonicated Tissue/Implant Culture Methicillin Resistant Staphylococcus aureus Comment: isolated from broth culture. Susceptibilities previously reported. Abscess/Wound Aspirate Culture, Aerobic Only [[id number]] (Abnormal) (Susceptibility) Collected: 09/26/24 1702 Lab Status: [...] to doxycycline. Abscess/Wound Aspirate Culture, Aerobic Only [[id number]] (Abnormal) (Susceptibility) Collected: 09/26/241649 Lab Status: Final [...] is considered susceptible to doxycycline. AFB culture [[id number]] Collected: 09/27/241653 Lab Status: Preliminary result Specimen: Tissue from Thigh, Left Updated: 09/29/24 1201 Acid Fast Bacilli Culture No acid fast bacilli isolated to date. Acid Fast Stain No acid fast bacilli seen Fungus culture [[id number]] Collected: 09/27/241653 Lab Status: Preliminary result Specimen: [...] 2nd toe amputation who was transferred from [facility] given concern for infected left fem-BK popliteal PTFE bypass. He is now s/p an explantof an infected left femoral-below knee popliteal artery bypass graft (09/26), I/D groin abscess (), L GSV harvest, vein patch angioplasty, L TURN OPERATOR and BK pop w/ sartorius flap [...] 81mg daily Benjamin Iniguez MD 10/05/2024 Pager: [phone] Associated attestation - Hayley Torres MD - [...] aspirate- MRSA Antimicrobials: Vancomycin- Imaging/diagnostics: CT lower umbxdnjgm22/20 IMPRESSION: 1. Interval explant of LEFT femoral [...] male who underwent a left lower extremity doucqtq-zk-trgmk-kneepopliteal artery bypass on August 01, 2024, and [...] concerns. Please page ID Green team (pager [phone]) with questions or concerns. Lynne Leavitt MD Fellow, Infectious Disease Pager: [phone] Epic Chat 10/02/2024 This note was created using [employer]) voice recognition software. Associated attestation - Amaya [...] Procedure Component Value - Date/Time Blood culture [[id number]] Collected: 09/29/242123 Lab Status: Final result Specimen: Blood, Venous Updated: 10/04/24 2301 Blood Culture No growth at 120 hours Blood culture [[id number]] Collected: 09/29/242123 Lab Status: Final result Specimen: Blood, Venous Updated: 10/04/24 2301 Blood Culture No growth at 120 hours AFB culture [[id number]] Collected: 09/26/24 170 Lab Status: Preliminary result Specimen: Abscess from Knee, Left Updated: 10/04/24 120 Acid Fast Bacilli Culture No acid fast bacilli isolated at 1 week. Acid Fast Stain No acid fast bacilli seen Blood culture [[id number]] Collected: 09/28/24 1749 Lab Status: Final result Specimen: Blood, Venous Updated: 10/03/24 1901 Blood Culture No growth at 120 hours Blood culture [[id number]] (Abnormal) Collected: 09/27/242132 Lab Status: Final result Specimen: Blood, Venous Updated: 10/02/24 0804 Blood Culture Methicillin Resistant Staphylococcus aureus Comment: Susceptibilities previously reported. Gram Stain Aerobic Bottle: Gram positive cocci in clusters Tissue Culture, Aerobic & Anaerobic [[id number]] Collected: 09/27/241653 Lab Status: Final result Specimen: Tissue from Thigh, Left Updated: 10/01/24 155 Narrative: The following orders were created for panel order Tissue Culture, Aerobic & Anaerobic. Procedure Abnormality Status --------- ------ Tissue Culture, Aerobic ...[[id number]] Anaerobic Culture[[id number]] Final result Please view results for these tests on the individual orders. Anaerobic Culture [[id number]] Collected: 09/27/241653 Lab Status: Final result Specimen: Tissue from Thigh, Left Updated: 10/01/24 155 Anaerobic Culture No anaerobic organisms isolated Tissue Culture, Aerobic Only [[id number]] (Abnormal) (Susceptibility) Collected: 11/20/24 1654 Lab Status: [...] is considered susceptible to doxycycline. Blood culture [[id number]] (Abnormal) (Susceptibility) Collected: 09/26/24 1422 Lab Status: Final result Specimen: Blood, Venous Updated: 10/01/24 0658 Blood Culture Methicillin Resistant Staphylococcus aureus Comment: detected by PCR Isolate saved. If future testing is required, contact the Microbiology Steam Setter. Gram Stain Aerobic Bottle: Gram positive cocci in clusters Susceptibility Methicillin Resistant Staphylococcus aureus VITEK 2 METHOD Clindamycin >=8.0 ug/ml Resistant Gentamicin <=0.5 ug/ml Susceptible [1] Linezolid 2.0 ug/ml Susceptible Oxacillin >=4.0 ug/ml Resistant Trimethoprim/Sulfa <=10.0 ug/ml Susceptible Vancomycin 1.0 ug/ml Susceptible [1] Gentamicin is not appropriate for monotherapy for gram-positive infections. Blood culture [[id number]] (Abnormal) Collected: 09/26/24 1845 Lab Status: Final result Specimen: Blood, Venous Updated: 10/01/24 0658 Blood Culture Methicillin Resistant Staphylococcus aureus Comment: isolated. Susceptibilities previously reported. Gram Stain Aerobic Bottle: Gram positive cocci in clusters Abscess/Wound Aspirate Culture, Aerobic & Anaerobic [[id number]] (Abnormal) Collected: 09/26/24 1650 Lab Status: Final result Specimen: Abscess from Groin, Left Updated: 09/30/24 1551 Narrative: The following orders were created for panel order Abscess/Wound Aspirate Culture, Aerobic & Anaerobic. Procedure Abnormality Status --------- ------ Abscess/Wound Aspirate C...[[id number]] Abnormal Final result Anaerobic Culture[[id number]] Final result Please view results for these tests on the individual orders. Anaerobic Culture [[id number]] Collected: 09/26/24 1650 Lab Status: Final result Specimen: Abscess from Groin, Left Updated: 09/30/24 1551 Anaerobic Culture No anaerobic organisms isolated Abscess/Wound Aspirate Culture, Aerobic & Anaerobic [[id number]] (Abnormal) Collected: 09/26/24 1702 Lab Status: Final result Specimen: Abscess from Knee, Left Updated: 09/30/24 1551 Narrative: The following orders were created for panel order Abscess/Wound Aspirate Culture, Aerobic & Anaerobic. Procedure Abnormality Status --------- ------ Abscess/Wound Aspirate C...[[id number]] Abnormal Final result Anaerobic Culture[[id number]] Final result Please view results for these tests on the individual orders. Anaerobic Culture [[id number]] Collected: 09/26/24 170 Lab Status: Final result Specimen: Abscess from Knee, Left Updated: 09/30/24 1551 Anaerobic Culture No anaerobic organisms isolated Sonicated Tissue/Implant Culture [[id number]] (Abnormal) Collected: 09/26/24 1716 Lab Status: Final result Specimen: Vascular Graft from Leg, Left Updated: 09/30/24 1349 Sonicated Tissue/Implant Culture Methicillin Resistant Staphylococcus aureus Comment: isolated from broth culture. Susceptibilities previously reported. Abscess/Wound Aspirate Culture, Aerobic Only [[id number]] (Abnormal) (Susceptibility) Collected: 09/26/24 170 Lab Status: [...] to doxycycline. Abscess/Wound Aspirate Culture, Aerobic Only [[id number]] (Abnormal) (Susceptibility) Collected: 09/26/241649 Lab Status: Final [...] is considered susceptible to doxycycline. AFB culture [[id number]] Collected: 09/27/241653 Lab Status: Preliminary result Specimen: Tissue from Thigh, Left Updated: 09/29/24 1201 Acid Fast Bacilli Culture No acid fast bacilli isolated to date. Acid Fast Stain No acid fast bacilli seen Fungus culture [[id number]] Collected: 09/27/241653 Lab Status: Preliminary result Specimen: [...] for consulting infectious diseases. Amaya Hernandez MD, [facility] Infectious Diseases Staff Physician * Vibha Guerrero [...] Diet NPO Monitoring: Q4 Fawn Cunningham APRN [facility] Endocrinology Diabetes Management Pager [phone] Weekends please page [phone] 35 minutes were spent over the course [...] 2nd toe amputation who was transferred from [facility] given concern for infected left fem-BK popliteal [...] smoking 1 week ago. He presented to [facility] on 09/26 and went to the [...] (porcine) 5,000 Units Subcutaneous Q8H [facility] lidocaine 1 patch Transdermal Q24H [...] Procedure Component Value - Date/Time Blood culture [[id number]] Collected: 09/29/242123 Lab Status: Preliminary result Specimen: Blood, Venous Updated: 10/03/24 230 Blood Culture No growth at 96 hours Blood culture [[id number]] Collected: 09/29/242123 Lab Status: Preliminary result Specimen: Blood, Venous Updated: 10/03/24 2301 Blood Culture No growth at 96 hours Blood culture [[id number]] Collected: 09/28/24 1749 Lab Status: Final result Specimen: Blood, Venous Updated: 10/03/24 1901 Blood Culture No growth at 120 hours Blood culture [[id number]] (Abnormal) Collected: 09/27/242132 Lab Status: Final result Specimen: Blood, Venous Updated: 10/02/24 0804 Blood Culture Methicillin Resistant Staphylococcus aureus Comment: Susceptibilities previously reported. Gram Stain Aerobic Bottle: Gram positive cocci in clusters Tissue Culture, Aerobic & Anaerobic [[id number]] Collected: 09/27/24 1654 Lab Status: Final result Specimen: Tissue from Thigh, Left Updated: 10/01/24 1554 Narrative: The following orders were created for panel order Tissue Culture, Aerobic & Anaerobic. Procedure Abnormality Status --------- ------ Tissue Culture, Aerobic ...[[id number]] Anaerobic Culture[[id number]] Final result Please view results for these tests on the individual orders. Anaerobic Culture [[id number]] Collected: 09/27/24 1654 Lab Status: Final result Specimen: Tissue from Thigh, Left Updated: 10/01/24 1554 Anaerobic Culture No anaerobic organisms isolated Tissue Culture, Aerobic Only [[id number]] (Abnormal) (Susceptibility) Collected: 09/27/24 165 Lab Status: [...] is considered susceptible to doxycycline. Blood culture [[id number]] (Abnormal) (Susceptibility) Collected: 09/26/24 1422 Lab Status: Final result Specimen: Blood, Venous Updated: 10/01/24 0658 Blood Culture Methicillin Resistant Staphylococcus aureus Comment: detected by PCR Isolate saved. If future testing is required, contact the Microbiology Steam Setter. Gram Stain Aerobic Bottle: Gram positive cocci in clusters Susceptibility Methicillin Resistant Staphylococcus aureus VITEK 2 METHOD Clindamycin Resistant Gentamicin Susceptible [1] Linezolid Susceptible Oxacillin Resistant Trimethoprim/Sulfa Susceptible Vancomycin Susceptible [1] Gentamicin is not appropriate for monotherapy for gram-positive infections. Blood culture [[id number]] (Abnormal) Collected: 09/26/24 1845 Lab Status: Final result Specimen: Blood, Venous Updated: 10/01/24 0658 Blood Culture Methicillin Resistant Staphylococcus aureus Comment: isolated. Susceptibilities previously reported. Gram Stain Aerobic Bottle: Gram positive cocci in clusters Abscess/Wound Aspirate Culture, Aerobic & Anaerobic [[id number]] (Abnormal) Collected: 09/26/24 1650 Lab Status: Final result Specimen: Abscess from Groin, Left Updated: 09/30/24 1551 Narrative: The following orders were created for panel order Abscess/Wound Aspirate Culture, Aerobic & Anaerobic. Procedure Abnormality Status --------- ------ Abscess/Wound Aspirate C...[[id number]] Abnormal Final result Anaerobic Culture[[id number]] Final result Please view results for these tests on the individual orders. Anaerobic Culture [[id number]] Collected: 09/26/24 1650 Lab Status: Final result Specimen: Abscess from Groin, Left Updated: 09/30/24 1551 Anaerobic Culture No anaerobic organisms isolated Abscess/Wound Aspirate Culture, Aerobic & Anaerobic [[id number]] (Abnormal) Collected: 09/26/24 170 Lab Status: Final result Specimen: Abscess from Knee, Left Updated: 09/30/24 1551 Narrative: The following orders were created for panel order Abscess/Wound Aspirate Culture, Aerobic & Anaerobic. Procedure Abnormality Status --------- ------ Abscess/Wound Aspirate C...[[id number]] Abnormal Final result Anaerobic Culture[[id number]] Final result Please view results for these tests on the individual orders. Anaerobic Culture [[id number]] Collected: 09/26/24 170 Lab Status: Final result Specimen: Abscess from Knee, Left Updated: 09/30/24 1551 Anaerobic Culture No anaerobic organisms isolated Sonicated Tissue/Implant Culture [[id number]] (Abnormal) Collected: 09/26/24 1716 Lab Status: Final result Specimen: Vascular Graft from Leg, Left Updated: 09/30/24 1349 Sonicated Tissue/Implant Culture Methicillin Resistant Staphylococcus aureus Comment: isolated from broth culture. Susceptibilities previously reported. Abscess/Wound Aspirate Culture, Aerobic Only [[id number]] (Abnormal) (Susceptibility) Collected: 09/26/24 1702 Lab Status: [...] to doxycycline. Abscess/Wound Aspirate Culture, Aerobic Only [[id number]] (Abnormal) (Susceptibility) Collected: 09/26/24 1650 Lab Status: [...] is considered susceptible to doxycycline. AFB culture [[id number]] Collected: 09/27/24 165 Lab Status: Preliminary result Specimen: Tissue from Thigh, Left Updated: 09/29/24 1201 Acid Fast Bacilli Culture No acid fast bacilli isolated to date. Acid Fast Stain No acid fast bacilli seen AFB culture [[id number]] Collected: 09/26/24 1702 Lab Status: Preliminary result Specimen: Abscess from Knee, Left Updated: 09/29/24 1201 Acid Fast Bacilli Culture No acid fast bacilli isolated to date. Acid Fast Stain No acid fast bacilli seen Fungus culture [[id number]] Collected: 09/27/24 165 Lab Status: Preliminary result Specimen: Tissue from Thigh, Left Updated: 09/28/24 0748 Fungus Culture No fungus isolated to date MRSA PCR Screen [[id number]] (Abnormal) Collected: 09/27/24 0751 Lab Status: Final result Specimen: Swab from Nares Updated: 09/27/24 1156 MRSA PCR Detected Narrative: This test was performed using the Xpert MRSA NxG test kit and is run on the [employer] GeneXpert Dx System. This test is cleared by the U.S. Food and Drug Administration for clinical use and its performance characteristics have been verified by the [facility] at [facility]. New Studies: - None Assessment & Plan: Geovanna Dixon Jr. is a 49 y.o. male with a history of HTN, HLD, NSTEMI, CAD s/p CABG (12/2011), DM,obesity, PAD s/p L iliofem endart and L fem-BK pop bypass and L 2nd toe amputation who was transferred from [facility] given concern for infected left fem-BK popliteal PTFE bypass. He is now s/p an explantof an infected left femoral-below knee popliteal artery bypass graft (09/26), I/D groin abscess (), L GSV harvest, vein patch angioplasty, L TURN OPERATOR and BK pop w/ sartorius flap [...] 81mg daily Benjamin Iniguez MD 10/04/2024 Pager: [phone] Associated attestation - Hayley Torres MD - [...] was scheduled for a f/u nutrition evaluation. Timber Framer Helper met pt at bedside. Pt sharedthat his [...] nausea and no vomiting Last Bowel Movement: (GLASS CUTTING MACHINE FEEDER- MD made aware) Patient education /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 Preliminary result Specimen: Tissue from Thigh, Left Updated: 09/28/24 0748 Fungus Culture No fungus isolated to date MRSA PCR Screen [[id number]] (Abnormal) Collected: 09/27/24 0751 Lab Status: Final result Specimen: Swab from Nares Updated: 09/27/24 1156 MRSA PCR Detected Narrative: This test was performed using the Xpert MRSA NxG test kit and is run on the [employer] GeneXCashCashPinoy Dx System. This test is cleared by the U.S. Food and Drug Administration for clinical use and its performance characteristics have been verified by the Clinical Genomics and Advanced Technology Laboratory at [facility]. Fungus culture [[id number]] Collected: 09/26/24 165 Lab Status: Preliminary result Specimen: Abscess from Groin, Left Updated: 09/27/24 0727 Fungus Culture No fungus isolated to date Fungus culture [[id number]] Collected: 09/26/24 1702 Lab Status: Preliminary result [...] 2nd toe amputation who was transferred from [facility] given concern for infected left fem-BK popliteal PTFE bypass. He is now s/p an explantof an infected left femoral-below knee popliteal artery bypass graft (09/26), I/D groin abscess (), L GSV harvest, vein patch angioplasty, L TURN OPERATOR and BK pop w/ sartorius flap L fem, I/D, 09/29 L sartorius flap revision, vac change. 10/01/24: Tolerated gentle irrigation with saline at BSD today with clear to mildly serosang drainage - no purulence or malodor noted and patient tolerated well. Will plan for NPO at [place] for return [place] tomorrow. Hypertensive overnight, home [...] - ISS - diet today; NPO at [place] for OR Tuesday 10/02 Anticoagulation: SQH TID Antiplatelet: ASA 81 María Carranza, FAIRGROUND OPERATOR 10/01/2024 Pager: [phone] * Karolyn Hudson MD - 09/30/2024 11:21 AM EST Images from the original note were not included. Vascular Surgery Progress Note Patient ID Geovanna Dixon Jr. is a 49 y.o. male with history of HTN, HLD, NSTEMI, CAD s/p CABG (12/2011), DM, obesity, PAD s/p L iliofem endart and L fem-BK pop bypass and L 2nd toe amputation who was transferred from [facility] given concern for infected left fem-BK popliteal [...] smoking 1 week ago. He presented to [facility] on 09/26 and went to the [...] Procedure Component Value - Date/Time Blood culture [[id number]] (Abnormal) Collected: 09/27/24 2133 Lab Status: Preliminary result Specimen: Blood, Venous Updated: 09/30/24 0718 Blood Culture Methicillin Resistant Staphylococcus aureus Comment: Susceptibilities previously reported. Gram Stain Aerobic Bottle: Gram positive cocci in clusters Blood culture [[id number]] Collected: 09/28/24 1749 Lab Status: Preliminary result Specimen: Blood, Venous Updated: 09/29/24 1901 Blood Culture No Growth at 18-24 hrs. AFB culture [[id number]] Collected: 09/27/24 1654 Lab Status: Preliminary result Specimen: Tissue from Thigh, Left Updated: 09/29/24 1201 Acid Fast Bacilli Culture No acid fast bacilli isolated to date. Acid Fast Stain No acid fast bacilli seen AFB culture [[id number]] Collected: 09/26/24 1702 Lab Status: Preliminary result Specimen: Abscess from Knee, Left Updated: 09/29/24 1201 Acid Fast Bacilli Culture No acid fast bacilli isolated to date. Acid Fast Stain No acid fast bacilli seen Sonicated Tissue/Implant Culture [[id number]] (Abnormal) Collected: 09/26/24 1716 Lab Status: Preliminary result Specimen: Vascular Graft from Leg, Left Updated: 09/29/24 1132 Sonicated Tissue/Implant Culture Methicillin Resistant Staphylococcus aureus Comment: isolated from broth culture. Susceptibilities previously reported. Tissue Culture, Aerobic Only [[id number]] (Abnormal) (Susceptibility) Collected: 09/27/24 1654 Lab Status: [...] is considered susceptible to doxycycline. Blood culture [[id number]] (Abnormal) Collected: 09/26/24 1845 Lab Status: Preliminary result Specimen: Blood, Venous Updated: 09/29/24 0719 Blood Culture Methicillin Resistant Staphylococcus aureus Comment: isolated. Susceptibilities previously reported. Gram Stain Aerobic Bottle: Gram positive cocci in clusters Blood culture [[id number]] (Abnormal) (Susceptibility) Collected: 09/26/24 1422 Lab Status: Preliminary result Specimen: Blood, Venous Updated: 09/29/24 0717 Blood Culture Methicillin Resistant Staphylococcus aureus Comment: detected by PCR Isolate saved. If future testing is required, contact the Microbiology Steam Setter. Gram Stain Aerobic Bottle: Gram positive cocci in clusters Susceptibility Methicillin Resistant Staphylococcus aureus VITEK 2 METHOD Clindamycin Resistant Gentamicin Susceptible [1] Linezolid Susceptible Oxacillin Resistant Trimethoprim/Sulfa Susceptible Vancomycin Susceptible [1] Gentamicin is not appropriate for monotherapy for gram-positive infections. Anaerobic Culture [[id number]] Collected: 09/27/24 1654 Lab Status: Preliminary result Specimen: Tissue from Thigh, Left Updated: 09/28/24 1355 Anaerobic Culture No anaerobic organisms isolated to date Abscess/Wound Aspirate Culture, Aerobic Only [[id number]] (Abnormal) (Susceptibility) Collected: 09/26/24 1702 Lab Status: [...] to doxycycline. Abscess/Wound Aspirate Culture, Aerobic Only [[id number]] (Abnormal) (Susceptibility) Collected: 09/26/241649 Lab Status: Preliminary [...] is considered susceptible to doxycycline. Fungus culture [[id number]] Collected: 09/27/241653 Lab Status: Preliminary result Specimen: Tissue from Thigh, Left Updated: 09/28/24 0748 Fungus Culture No fungus isolated to date MRSA PCR Screen [[id number]] (Abnormal) Collected: 09/27/24 0751 Lab Status: Final result Specimen: Swab from Nares Updated: 09/27/24 1156 MRSA PCR Detected Narrative: This test was performed using the Xpert MRSA NxG test kit and is run on the [employer] GeneXpert Dx System. This test is cleared by the U.S. Food and Drug Administration for clinical use and its performance characteristics have been verified by the Clinical Genomics and Advanced Technology Laboratory at [facility]. Anaerobic Culture [[id number]] Collected: 09/26/241649 Lab Status: Preliminary result Specimen: Abscess from Groin, Left Updated: 09/27/24 1142 Anaerobic Culture No anaerobic organisms isolated to date Anaerobic Culture [[id number]] Collected: 09/26/24 1702 Lab Status: Preliminary result Specimen: Abscess from Knee, Left Updated: 09/27/24 1142 Anaerobic Culture No anaerobic organisms isolated to date Fungus culture [[id number]] Collected: 09/26/241649 Lab Status: Preliminary result Specimen: Abscess from Groin, Left Updated: 09/27/24 0727 Fungus Culture No fungus isolated to date Fungus culture [[id number]] Collected: 09/26/24 1702 Lab Status: Preliminary result Specimen: Abscess from Knee, Left Updated: 09/27/24 0743 Fungus Culture No fungus isolated to date New Studies Results for orders placed or performed during the hospital encounter of 09/26/24 Request For 2nd Read CT Lower Extremity (Exam End: 09/26/2024 1:50 PM) Result Value WORKSTATION ID [id number] Impression 1. There is a left femoral [...] who have questions please contact the health skin care specialist that requested your imaging first. Electronically signed by: Lisette Bruno MD, [facility] ([phone]), at 09/26/2024 3:[address] Lower Extremity w Contrast Left (Exam End: 09/27/2024 9:16 AM) Result Value WORKSTATION ID [id number] Impression IMPRESSION: 1. Interval explant of LEFT [...] who have questions please contact the health skin care specialist that requested your imaging first. [...] 2nd toe amputation who was transferred from [facility] given concern for infected left fem-BK popliteal [...] Labs 09/28/24 1516 PHART 7.42 PO2ART 103 [id number] 39 LACTATEART 1.1 BEART 0.2 Is this [...] 1643 PHART 7.42 7.38 PO2ART 103 96 [id number] 39 41 LACTATEART 1.1 1.7 BEART 0.2 [...] Thank you, Renea Nunez, MS, RD, LD, [facility] Clinical Nutrition * Mariya Shi RN [...] Diet CC Monitoring: Q4 Fawn Cunningham APRN [facility] Endocrinology Diabetes Management Pager [phone] Weekends please page [phone] minutes were spent over the course [...] Labs 09/26/24 1643 PHART 7.38 PO2ART 96 [id number] 41 LACTATEART 1.7 BEART -1.4 Is this [...] 2nd toe amputation who was transferred from [facility] given concern for infected left fem-BK popliteal [...] smoking 1 week ago. He presented to [facility] on 09/26 and went to the [...] Procedure Component Value - Date/Time Fungus culture [[id number]] Collected: 09/27/24 1654 Lab Status: Preliminary result Specimen: Tissue from Thigh, Left Updated: 09/28/24 0748 Fungus Culture No fungus isolated to date Blood culture [[id number]] (Abnormal) Collected: 09/26/24 1845 Lab Status: Preliminary result Specimen: Blood, Venous Updated: 09/28/24 0711 Blood Culture Methicillin Resistant Staphylococcus aureus Comment: isolated. Susceptibility testing in progress. Gram Stain Aerobic Bottle: Gram positive cocci in clusters AFB culture [[id number]] Collected: 09/26/24 170 Lab Status: Preliminary result Specimen: Abscess from Knee, Left Updated: 09/27/24 2335 Acid Fast Stain No acid fast bacilli seen Tissue Culture, Aerobic Only [[id number]] Collected: 09/27/24 165 Lab Status: Preliminary result Specimen: Tissue from Thigh, Left Updated: 09/27/24 1810 Gram Stain Few Neutrophils seen No microorganisms seen Abscess/Wound Aspirate Culture, Aerobic Only [[id number]] (Abnormal) Collected: 09/26/24 170 Lab Status: Preliminary result Specimen: Abscess from Knee, Left Updated: 09/27/24 1520 Abscess/Wound Aspirate Culture Many Staphylococcus aureus Gram Stain Many neutrophils Many Gram positive cocci Abscess/Wound Aspirate Culture, Aerobic Only [[id number]] (Abnormal) Collected: 09/26/241649 Lab Status: Preliminary result Specimen: Abscess from Groin, Left Updated: 09/27/24 1519 Abscess/Wound Aspirate Culture Many Staphylococcus aureus Gram Stain Many neutrophils Many Gram positive cocci Blood culture [[id number]] (Abnormal) Collected: 09/26/24 1422 Lab Status: Preliminary result Specimen: Blood, Venous Updated: 09/27/24 1320 Blood Culture Methicillin Resistant Staphylococcus aureus Comment: detected by PCR Gram Stain Aerobic Bottle: Gram positive cocci in clusters MRSA PCR Screen [[id number]] (Abnormal) Collected: 09/27/24 0751 Lab Status: Final result Specimen: Swab from Nares Updated: 09/27/24 1156 MRSA PCR Detected Narrative: This test was performed using the Xpert MRSA NxG test kit and is run on the [employer] GeneXpert Dx System. This test is cleared by the U.S. Food and Drug Administration for clinical use and its performance characteristics have been verified by the Clinical Genomics and [facility] Technology Laboratory at [facility]. Anaerobic Culture [[id number]] Collected: 09/26/24 165 Lab Status: Preliminary result Specimen: Abscess from Groin, Left Updated: 09/27/24 1142 Anaerobic Culture No anaerobic organisms isolated to date Anaerobic Culture [[id number]] Collected: 09/26/24 170 Lab Status: Preliminary result Specimen: Abscess from Knee, Left Updated: 09/27/24 1142 Anaerobic Culture No anaerobic organisms isolated to date Fungus culture [[id number]] Collected: 09/26/24 1650 Lab Status: Preliminary result Specimen: Abscess from Groin, Left Updated: 09/27/24726 Fungus Culture No fungus isolated to date Fungus culture [[id number]] Collected: 09/26/24 1702 Lab Status: Preliminary result Specimen: Abscess from Knee, Left Updated: 09/27/24726 Fungus Culture No fungus isolated to date New Studies Results for orders placed or performed during the hospital encounter of 09/26/24 Request For 2nd Read CT Lower Extremity (Exam End: 09/26/2024 1:50 PM) Result Value WORKSTATION ID [id number] Impression 1. There is a left femoral [...] who have questions please contact the health skin care specialist that requested your imaging first. Electronically signed by: Lisette Bruno MD, [facility] ([phone]), at 09/26/2024 3:[address] Lower Extremity w Contrast Left (Exam End: 09/27/2024 9:16 AM) Result Value WORKSTATION ID [id number] Impression IMPRESSION: 1. Interval explant of LEFT [...] who have questions please contact the health skin care specialist that requested your imaging first. Electronically signed by: Ignacia Chi MD, [facility] ([phone]), at 09/27/2024 10:48 AM Assessment & Plan Geovanna Dixon Jr. is a 49 y.o. male with a history of HTN, HLD, NSTEMI, CAD s/p CABG (12/2011), DM,obesity, PAD s/p L iliofem endart and L fem-BK pop bypass and L 2nd toe amputation who was transferred from [facility] given concern for infected left fem-BK popliteal [...] Superior part of dressing taken down. [address] Abd pads with serosanguinous [...] Kita Hodge - 09/27/2024 3:58 PM EST Pipe Fitter Soft Copper Encounter Note Patient Name: Geovanna Dixon Jr. : [id number] MR#: [id number] Admit Date: 09/26/2024 2:08 PM Hospital Day 1 day Narrative: Finish Mill Operator initiated visit with patient during rounds on the unit. Patient indicated that he was not sabianist. He reported that he was in less [...] Labs 09/26/24 1643 PHART 7.38 PO2ART 96 EXS9INJ 41 LACTATEART 1.7 BEART -1.4 Is this [...] 2nd toe amputation who was transferred from [facility] given concern for infected left fem-BK popliteal [...] smoking 1 week ago. He presented to [facility] on 09/26 and went to the [...] 2nd toe amputation who was transferred from [facility] given concern for infected left fem-BK popliteal PTFE bypass. He is now s/p an explantof an infected left femoral-below knee popliteal artery bypass graft. Significant purulence under pr essure was seen intraoperatively, surrounding the entire bypass at proximal and distal anastomoses as well as the tunnel. There are retained grafts left at proximal and distal anastomoses, and a Kemah drain placed from left groin to left [...] graft associated infection. The patient presented to [facility] ED on 09/26 for evaluation of increasing [...] remained hemodynamically stable during his time at [facility] and was transported by ground to [facility] for vascular surgery consultation. Patient was [...] 3.51) performed by Thony Garcia MD at [facility] MAIN OR PRO BYPASS GRAFT OTHR, FEM-TIBIAL Left 08/01/2024 @BYPASS GRAFT, FEM-ANT TIBIAL, -POST TIBIAL, -PERONEAL, -DP W\ SYNTHETIC CONDUIT (WRVU 23.66) performed by Lisette Maldonado MD at [facility] MAIN OR PRO CABG, ARTERY-VEIN, SINGLE 01/04/2012 @CABG, VENOUS & ARTERIAL GRAFT;SINGLE VEIN GRAFT performed by INNA TOVAR at [facility] MAIN OR PRO ENDOSCOPY W/VIDEO-ASST VEIN HARVEST, CABG 01/04/2012 ENDOSCOPIC HARVEST VEIN(S) FOR CABG performed by INNA TOVAR at [facility] MAIN OR VS ARTERIOGRAM LOWER EXTREMITY VASCULAR SURGERY 07/20/2024 VS Arteriogram Lower Extremity Vascular Surgery 07/20/2024 Anabel Finney MD [facility] INTERVENTIONL RAD Prior To Admission [...] 3 times daily. Use as instructed Indications: [id number] each 1 Past Week FreeStyle Lancets 28 [...] mellitus, whatver the most affordable version is forJumio insurance 15 mL 1 Past Week insulin [...] 200 - 393 mg/dL Type and screen ([facility]/CGP/BABITA) Result Value Ref Range ABORH Type A POSITIVE PATIENT HISTORY Found Expires at 2359 on: 09/29/2024 ANTIBODY SCREEN AUTOMATED Negative T&S only valid at [facility] LAB CBC (with Diff) Result Value [...] 09/26/2024 1:50 PM) Result Value WORKSTATION ID [id number] Impression 1. There is a left femoral [...] who have questions please contact the health skin care specialist that requested your imaging first. Electronically signed by: Lisette Bruno MD, [facility] ([phone]), at 09/26/2024 3:01 PM Assessment/Plan: Geovanna Dixon [...] to the planned procedure. Hand Hygiene: The isotope technician did perform hand hygiene prior to line insertion. Catheter type: PICC Lot number: [id number] Procedure Technique: Skin was prepped with chlorhexidine. [...] to the planned procedure. Hand Hygiene: The isotope technician did perform hand hygiene prior to line insertion. Catheter type: PICC Lot number: [id number] Procedure Technique: Skin was prepped with chlorhexidine. [...] tomorrow afternoon. Home Vac: I have called [facility] Inventory and they they have now delivered the home ActiVac serial # [id number]. Pt reviewed the [facility] ActiVac Proof of Delivery/Assignment of Benefits (POD/AOB)form and signed it; she has copy of this and the [facility] Patient Copy letter along with the supplies, I will fax copy of the POD/AOB to [facility]. Needs for Transition of Care: Plan for discharge is: Home w/ Services Outpatient Agency/Support Group Needs: Homecare agency Outpatient IV Medications - IV Access: Access Ordered Location: Home, Referred to [facility] Coordination, Referred to [facility] Services: Occupational Therapy, Physical Therapy, Registered Nurse Agency Referrals & Follow-up Care: Contact information [place] [id number] [facility] [id number] Transportation: family or friend will provide Functional status prior to admission: Independent Home Environment: Others in the home: sibling(s), other (see comments) (lives with his sister delmy and brother in law). Current Living Arrangements: home/apartment/condo. Accessibility Concerns: . Current Functional Ability: Assistive Person and Equipment DME used at home: none Other DME Needs: Wound Vac Provider: [facility] Patient is insured through: Primary Insurance: [employer] MA[employer]ED MEDICARE Payor: [employer] MEDICARE / Plan: [employer] MA[employer]ED MEDICARE PPO / Product Type: *No [...] Pain Flowsheets Taken 10/09/20242022 Pain Management Interventions: flbyxy-irt-lhfxr dosing utilized care clustered diversional activity provided [...] from the original note were not included. [facility] [place] [address] [facility] Vascular Access Service Peripherally Inserted Central Catheter (PICC) Teaching Sheet Peripherally inserted central catheters (ztqz-ue-whwv) (PICC) are used when you need IV [...] can be set up via the nurse Securities Research Analyst to help you. What are possible complications [...] Efficacy, Safety, Use, and Administration of Cathflo, [employer] 2005 * Care Management - Cristina [...] Referred to [facility] Coordination Home Health Services: Occupational Therapy, Physical Therapy, Registered Nurse- will remove PT, OT Agency Referrals: [facility] and [facility] for IV abx. [facility] can come tomorrow [...] 9:00 AM EST OFFICE OF CARE MANAGEMENT Securities Research Analyst Follow-up Note Cristina Turner RN reviewed record [...] medically ready. Current Referral in place: VNA: [facility] Wound vac ordered in [employer] for home wound vac and order emailed to: María for signature. Securities Research Analyst to follow with team and family to [...] where referrals are placed. Request referral to [place], [place] for IV abx or . Expected date of discharge: 10/11. Patient will require teaching. Referral routed to the Flower Grader for matching with agency/vendor and to provide [...] care clustered diversional activity provided position adjusted dmgqmu-pyc-hriyp dosing utilized pain management plan reviewed with [...] have. Alternately, during off-hours you may call [phone] to contact a pharmacist. * Plan of Care - Jordyn Navas RN - 10/07/2024 7:21 PM EST OUTCOME EVALUATION NOTE: OUTCOME SUMMARY: [facility], Meds/Assessments as [...] from the original [place] [address] [facility] Vascular Access Service Peripherally Inserted Central Catheter (PICC) Teaching Sheet Peripherally inserted central catheters (lldo-gu-hppk) (PICC) are used when you need IV [...] can be set up via the nurse Securities Research Analyst to help you. What are possible complications [...] Vascular Access Device Selection, Insertion, and Management, [employer]cket [employer] Systems 08/12. A Review of the Efficacy, Safety, Use, and Administration of Cathflo, [employer] 2005 * Care Management - Vibha [...] No Patient is insured through: Primary Insurance: [employer] MA[employer]GED MEDICARE Payor: [employer] MEDICARE / Plan: [employer] MEDICARE PPO / Product Type: *No [...] of Discharge: 10/10/2024 Vibha Wahl RN-BSN-CM Pager: [phone] * Consult Note - Stormy Muller [facility] - 10/06/2024 9:19 AM EST [facility] Pharmacokinetics Note Drug: Vancomycin Pharmacokinetic target: [...] Analysis of the most recent level(s) using Smart Education gives the following patient-specific pharmacokinetic parameters: CL: [...] in a steady-state trough of 14.6 mg/L [id number] of 508 mg/L.hr. Recommendations: - SCr has [...] Meeks MD - 10/04/2024 5:01 PM EST [facility] Operative Note Patient Name: Geovanna Dixon Jr. : [id number] MR#: [id number] Case Date: 10/04/2024 Surgeon: Surgeons and Role: * Marko Dickson MD - Primary * Cristino Meeks MD - Resident - Assisting Preoperative diagnosis: Status post explant of infected left TURN OPERATOR-BK pop bypass graft Postoperative diagnosis: Status post explant of infected left TURN OPERATOR-BK pop bypass graft Procedure(s) (LRB): DEBRIDEMENT [...] 2nd toe amputation who was transferred from [facility] given concern for infected left fem-BK popliteal PTFE bypass. He is now s/p an explant of an infected left femoral-below knee popliteal artery bypass graft on 09/26 followed by I/D posterior thigh abscess on 09/27 then left GSV harvest, total explant of remaining PTFE then vein patch angioplasty of the left TURN OPERATOR and BK popliteal artery on 09/28 [...] Note Patient Name: Geovanna Dixon Jr. : [id number] MR#: [id number] Case Date: 10/04/2024 Surgeon: Surgeons and Role: * Marko Dickson MD - Primary * Cristino Meeks MD - Resident - Assisting Preoperative diagnosis: Status post explant of infected left TURN OPERATOR-BK pop bypass graft Postoperative diagnosis: Status post explant of infected left TURN OPERATOR-BK pop bypass graft Procedure(s) (LRB): DEBRIDEMENT [...] No Patient is insured through: Primary Insurance: [employer] MANAGED MEDICARE Payor: [employer] MA[employer]GED MEDICARE / Plan: [employer] MANAGED MEDICARE PPO / Product Type: *No [...] BIT to reengage please page BIT @ 2200 * Consult Note - Vangie Chandra [facility] - 10/04/2024 10:42 AM EST [facility] Pharmacokinetics Note Drug: Vancomycin Pharmacokinetic target: AUC24 (range) 400-600 mg/L.hr Current regimen: 1500 mg IV every 8 hours Geovanna Dixon is a(n) 49 years old male receiving Vancomycin 1500 mg IV every 8 hours for graft infection Recent measured serum creatinine values: 10/04/2024 00:08 0.56 mg/dL 10/03/2024 00:27 0.51 mg/dL 10/02/2024 00:41 0.49 mg/dL Assessment: Analysis of the most recent level(s) using Smart Education gives the following patient-specific pharmacokinetic parameters: CL: [...] L 2nd toe amputationwho was transferred from [facility] given concern for infected left fem-BK popliteal PTFE bypass. He is now s/p an explant of an infected left femoral-below knee popliteal artery bypass graft (09/26), I/D groin abscess (09/27), L GSV harvest, vein patch angioplasty, L TURN OPERATOR and BK pop w/ sartorius flap L fem, I/D, 09/29 L sartorius flap revision, vac change. 10/03/24 NPO at [facility] for OR wound exploration. Wound [...] 3.51) performed by Thony Garcia MD at [facility] MAIN OR PRO BYPASS GRAFT OTHR, FEM-TIBIAL Left 08/01/2024 @BYPASS GRAFT, FEM-ANT TIBIAL, -POST TIBIAL, -PERONEAL, -DP W\ SYNTHETIC CONDUIT (WRVU 23.66) performed by Lisette Maldonado MD at [facility] MAIN OR PRO CABG, ARTERY-VEIN, SINGLE 01/04/2012 @CABG, VENOUS & ARTERIAL GRAFT;SINGLE VEIN GRAFT performed by INNA TOVAR at [facility] MAIN OR PRO DEBRIDEMENT MUSCLE AND FASCIA 20 SQ CM/< Left 09/29/2024 DEBRIDEMENT SKIN, SUBCU, MUSCLE, LOWER EXTREMITY (WRVU 2.7) performed by Anabel Finney MD at [facility] MAIN OR PRO DEBRIDEMENT MUSCLE AND FASCIA 20 SQ CM/< Left 10/02/2024 DEBRIDEMENT SKIN, SUBCU, MUSCLE, LOWER EXTREMITY (WRVU 2.7) performed by Hermila Mccormick MDat [facility] MAIN OR PRO DEBRIDEMENT SUBCUTANEOUS TISSUE 20 SQCM/< Left 09/27/2024 DEBRIDEMENT SKIN AND SUBCU, LOWER EXTREMITY (WRVU 1.01) performed by Hayley Torres MD at [facility] MAIN OR PRO DRAIN LOWER LEG DEEP ABSC/HEMATOMA Left 09/26/2024 INCISION & DRAINAGE, LEG OR ANKLE, DEEP ABSCESS OR HEMATOMA (WRVU 5.23) performed by Hayley Torres MD at [facility] OR PRO ENDOSCOPY W/VIDEO-ASST VEIN HARVEST, CABG 01/04/2012 ENDOSCOPIC HARVEST VEIN(S) FOR CABG performed by INNA TOVAR at [facility] MAIN OR PRO EXCISION, INFEC GRAFT, EXTREMITY Left 09/26/2024 EXCISION OF INFECTED GRAFT FROM LOWER EXTREMITY (WRVU 9.53) performed by Hayley Torres MD at [facility] MAIN OR PRO EXCISION, INFEC GRAFT, EXTREMITY Left 09/28/2024 EXCISION OF INFECTED GRAFT FROM LOWER EXTREMITY (WRVU 9.53) performed by Hayley Torres MD at [facility] MAIN OR PRO EXPLORATION NOT FOLLOWED BY SURG LOWER EXTREMITY ARTERY Left 09/29/2024 @EXPLORATION W\O SURGICAL REPAIR, FEMORAL ARTERY - JENNIFER (WRVU 7.5) performed by Anabel Finney MD at [facility] MAIN OR PRO FORM SKIN PEDICLE FLAP SCALP, ARM, LEG 09/28/2024 FLAP, PEDICLE,W OR W/O TRANSFER, LEGS (WRVU 10.12) performed by Hayley Torres MD at [facility] MAIN OR PRO I&D DEEP ABSCESS BURSA/HEMATOMA THIGH/KNEE REGION Left 09/26/2024 INCISION & DRAINAGE ABSCESS OR HEMATOMA, THIGH, KNEE SUPERFICIAL (WRVU 6.78) performed by Hayley Torres MD at [facility] MAIN OR PRO REVISION FEMORAL ANAST BPG GROIN OPEN W/NONAUTOG PATCH GRAFT Left 09/28/2024 REV. FEM. ANASTOMOSIS OF SYN. BYPASS GRAFT USING NONAUTOGENOUS PATCH ANGIOPLASTY-JENNIFER (WRVU 23.15) performed by Hayley Torres MD at [facility] MAIN OR PRO UNLISTED PROCEDURE VASCULAR SURGERY Left 09/28/2024 HARVEST SAPHENOUS VEIN (WRVU 13.24) performed by Hayley Torres MD at [facility] MAIN OR VS ARTERIOGRAM LOWER EXTREMITY VASCULAR SURGERY 07/20/2024 VS Arteriogram Lower Extremity Vascular Surgery 07/20/2024 Anabel Finney MD [facility] INTERVENTIONL RAD Social History: Patient [...] Pt issued and educated on use of underlay stitcher for underlay stitcher lower items. Self-feeding: Independent Grooming: Set up [...] has been seen for occupational therapy evaluation. eGovanna Dixon Jr. presents with the following performance [...] Discharge planning Total Minutes, Occupational Therapy: 35 ([id number]) OT Evaluation Code Rationale: Diagnosis & Pertinent Co-Morbidities affecting Plan of Care: see PMHx Occupational Profile & Client History: Brief Expanded Extensive x Assessment of Occupational Performance: 1-3 performance deficits 3-5 performance deficits x 5 + performance deficits Clinical Decision Making: Low Moderate High x Clinical decision making of low complexity using standardized patient assessment instrument and measurable assessment of functional outcome. Pager: [phone] Jorge Goetz OT 10/03/2024 Occupational Therapy Rehabilitation [...] Mccormick MD - 10/02/2024 2:06 PM EST [facility] Operative Note Patient Name: Geovanna Dixon Jr. : [id number] MR#: [id number] Case Date: 10/02/2024 Surgeon: Surgeons and Role: [...] 2nd toe amputation who was transferred from [facility] given concern for infected left fem-BK popliteal [...] fluid at most inferior portion along the Kemah tunnel. Otherwise, the wound had healthy granulation [...] the groin, we then attached a 15 Chinese Jose drain to the Kemah drain, and remove the Yung drain, replacing it with the 15 Chinese Jose drain. In a similar way we [...] through: Primary Insurance: [employer] MANAGED MEDICARE Payor: [employer] MANAGED MEDICARE / Plan: [employer] MA[employer]GED MEDICARE PPO / Product Type: *No Product type* / Secondary Insurance: N/A Plan for discharge is: Pending Hospital Course and PT/OT Recommendations Outpatient Agency/Support Group Needs: None Home Health Services: Occupational Therapy, Physical Therapy, Registered Nurse Agency Referrals: [facility]. [address] [place] [phone] Transportation: family or friend will provide Barriers to discharge: Global: Denies needs/concerns at this time Plan: Patient is not medically ready related to: patient is going to the OR today for a washout andremains on blowout precautions. Plan going forward is: when able patient will need to work with PT/OT Anticipated Date of Discharge: 10/10/2024 Penny ROSAS, RN Phone: [phone] Pager: [phone] * Plan of Care - Heidi Mobley [...] output. * Consult Note - Katelyn Oconnor [facility] - 09/30/2024 7:43 AM EST [facility] Pharmacokinetics Note Drug: Vancomycin Pharmacokinetic target: AUC24 (range) 400-600 mg/L.hr Current regimen: 1500 mg IV every 8 hours Geovanna Dixon is a(n) 49 years old male receiving Vancomycin 1500 mg IV every 8 hours for bacteremia Recent measured serum creatinine values: 09/29/2024 23:52 0.48 mg/dL 09/28/2024 23:51 0.52 mg/dL 09/27/2024 23:58 0.48 mg/dL Assessment: Analysis of the most recent level(s) using UbicomRX gives the following patient-specific pharmacokinetic parameters: CL: [...] Finney MD - 09/29/2024 2:41 PM EST [facility] Operative Note Patient Name: Geovanna Dixon Jr. : [id number] MR#: [id number] Case Date: 09/29/2024 Surgeon: Surgeons and Role: * Aanbel Finney MD - Primary * CarlaTato leary [...] 2nd toe amputation who was transferred from [facility] given concern for infected left fem-BK popliteal [...] mobilized and explored. The area around the TURN OPERATOR was irrigated copiously. The flap was [...] closed with interrupted vicryl sutures and cameron. [place] were also placed at the superior aspect [...] No Patient is insured through: Primary Insurance: [employer]ARE MANAGED MEDICARE Payor: [employer] MANAGED MEDICARE / Plan: [employer] MANAGED MEDICARE PPO / Product Type: *No Product type* / Secondary Insurance: N/A Plan for discharge is: Pending Hospital Course and PT/OT Recommendations Outpatient Agency/Support Group Needs: None Home Health Services: Occupational Therapy, Physical Therapy, Registered Nurse Agency Referrals: [facility] [address] [place] [address] Transportation: family or friend will provide Barriers [...] Discharge: 10/04/2024 Penny ROSAS RN CM Phone: [phone] Pager: [phone] * Consult Note - Rose Wright APRN [...] 2nd toe amputation who was transferred from [facility] given concern for infected left fem-BK popliteal [...] smoking 1 week ago. He presented to [facility] on 09/26 and went to the [...] Procedure Component Value - Date/Time Blood culture [[id number]] (Abnormal) Collected: 09/27/242132 Lab Status: Preliminary result Specimen: Blood, Venous Updated: 09/29/24 0721 Blood Culture Methicillin Resistant Staphylococcus aureus Gram Stain Aerobic Bottle: Gram positive cocci in clusters Blood culture [[id number]] (Abnormal) Collected: 09/26/24 1845 Lab Status: Preliminary result Specimen: Blood, Venous Updated: 09/29/24 0719 Blood Culture Methicillin Resistant Staphylococcus aureus Comment: isolated. Susceptibilities previously reported. Gram Stain Aerobic Bottle: Gram positive cocci in clusters Blood culture [[id number]] (Abnormal) (Susceptibility) Collected: 09/26/24 1422 Lab Status: Preliminary result Specimen: Blood, Venous Updated: 09/29/24 0717 Blood Culture Methicillin Resistant Staphylococcus aureus Comment: detected by PCR Isolate saved. If future testing is required, contact the Microbiology Steam Setter. Gram Stain Aerobic Bottle: Gram positive cocci in clusters Susceptibility Methicillin Resistant Staphylococcus aureus VITEK 2 METHOD Clindamycin Resistant Gentamicin Susceptible [1] Linezolid Susceptible Oxacillin Resistant Trimethoprim/Sulfa Susceptible Vancomycin Susceptible [1] Gentamicin is not appropriate for monotherapy for gram-positive infections. AFB culture [[id number]] Collected: 09/27/24 165 Lab Status: Preliminary result Specimen: Tissue from Thigh, Left Updated: 09/28/24 2226 Acid Fast Stain No acid fast bacilli seen Anaerobic Culture [[id number]] Collected: 09/27/24 165 Lab Status: Preliminary result Specimen: Tissue from Thigh, Left Updated: 09/28/24 1355 Anaerobic Culture No anaerobic organisms isolated to date Sonicated Tissue/Implant Culture [[id number]] Collected: 09/26/24 1716 Lab Status: Preliminary result Specimen: Vascular Graft from Leg, Left Updated: 09/28/24 1323 Sonicated Tissue/Implant Culture Culture in progress Tissue Culture, Aerobic Only [[id number]] (Abnormal) Collected: 09/27/24 165 Lab Status: Preliminary result Specimen: Tissue from Thigh, Left Updated: 09/28/24 1049 Tissue Culture Rare Staphylococcus aureus Gram Stain Few Neutrophils seen No microorganisms seen Abscess/Wound Aspirate Culture, Aerobic Only [[id number]] (Abnormal) (Susceptibility) Collected: 09/26/24 1702 Lab Status: [...] to doxycycline. Abscess/Wound Aspirate Culture, Aerobic Only [[id number]] (Abnormal) (Susceptibility) Collected: 09/26/241649 Lab Status: Preliminary [...] is considered susceptible to doxycycline. Fungus culture [[id number]] Collected: 09/27/24 165 Lab Status: Preliminary result Specimen: Tissue from Thigh, Left Updated: 09/28/24 0748 Fungus Culture No fungus isolated to date AFB culture [[id number]] Collected: 09/26/241701 Lab Status: Preliminary result Specimen: Abscess from Knee, Left Updated: 09/27/24 2335 Acid Fast Stain No acid fast bacilli seen MRSA PCR Screen [[id number]] (Abnormal) Collected: 09/27/24 0751 Lab Status: Final result Specimen: Swab from Nares Updated: 09/27/24 1156 MRSA PCR Detected Narrative: This test was performed using the Xpert MRSA NxG test kit and is run on the [employer] GeneXpert Dx System. This test is cleared by the U.S. Food and Drug Administration for clinical use and its performance characteristics have been verified by the [facility] at [facility]. Anaerobic Culture [[id number]] Collected: 09/26/241649 Lab Status: Preliminary result Specimen: Abscess from Groin, Left Updated: 09/27/24 1142 Anaerobic Culture No anaerobic organisms isolated to date Anaerobic Culture [[id number]] Collected: 09/26/24 170 Lab Status: Preliminary result Specimen: Abscess from Knee, Left Updated: 09/27/24 1142 Anaerobic Culture No anaerobic organisms isolated to date Fungus culture [[id number]] Collected: 09/26/24 1650 Lab Status: Preliminary result Specimen: Abscess from Groin, Left Updated: 09/27/24726 Fungus Culture No fungus isolated to date Fungus culture [[id number]] Collected: 09/26/24 1702 Lab Status: Preliminary result Specimen: Abscess from Knee, Left Updated: 09/27/24726 Fungus Culture No fungus isolated to date New Studies Results for orders placed or performed during the hospital encounter of 09/26/[address] Read CT Lower Extremity (Exam End: 09/26/2024 1:50 PM) Result Value WORKSTATION ID [id number] Impression 1. There is a left femoral [...] who have questions please contact the health skin care specialist that requested your imaging first. Electronically signed by: Lisette Bruno MD, [facility] ([phone]), at 09/26/2024 3:[address] Lower Extremity w Contrast Left (Exam End: 09/27/2024 9:16 AM) Result Value WORKSTATION ID [id number] Impression IMPRESSION: 1. Interval explant of LEFT [...] who have questions please contact the health skin care specialist that requested your imaging first. Electronically signed by: Ignacia Chi MD, [facility] ([phone]), at 09/27/2024 10:48 AM 09/28 ABIs Interpretation: [...] 2nd toe amputation who was transferred from [facility] given concern for infected left fem-BK popliteal [...] at proximal and distal anastomoses and a Kemah drain placed from left groin to left [...] Torres MD - 09/28/2024 12:23 PM EST [facility] Operative Note Patient Name: Geovanna Dixon Jr. : [id number] MR#: [id number] Case Date: 09/28/2024 Surgeon: Surgeons and Role: [...] pericardial patch and PTFE willard over the TURN OPERATOR was unincorporated. - Resection of prior [...] Destination 1 : Left femoral proximal graft Environmental Engineering Technician Leg, Left SURGICAL PATHOLOGY Hayley Torres MD 09/28/2024 1410 2 : Left distal BK pop graft Environmental Engineering Technician Leg, Left SURGICAL PATHOLOGY Hayley Torres MD [...] Indications: 49M with history of a left TURN OPERATOR-BK popliteal artery bypass with PTFE performed [...] solution. Systemic heparin was administered. Next, the TURN OPERATOR, SFA, and DFA were clamped. An 11-blade scalpel was used to excise the PTFE graft willard and the prior bovine pericardial patch, and all prior Prolene sutures were removed. Residual plaque in the arterial lumen was removed using a Vacherie elevator. The harvested vein patch was cut [...] the midline with division of the first applications systems engineer, such that the sartorius muscle was free [...] Torres MD - 09/28/2024 12:23 PM EST [facility] Operative Note Patient Name: Geovanna Dixon Jr. : [id number] MR#: [id number] Case Date: 09/28/2024 Surgeon: Surgeons and Role: [...] - Prior bovine pericardial patch over the TURN OPERATOR was unincorporated. - Resection of prior [...] No * Consult Note - Tea Nguyen, [facility] - 09/28/2024 9:23 AM EST Drug: [...] Analysis of the most recent level(s) using UbicomRX gives the following patient-specific pharmacokinetic parameters: CL: [...] Note Patient Name: Geovanna Dixon Jr. : [id number] MR#: [id number] Case Date: 09/27/2024 Surgeon: Surgeons and Role: [...] Torres MD - 09/27/2024 4:27 PM EST [facility] Operative Note Patient Name: Geovanna Dixon Jr. : [id number] MR#: [id number] Case Date: 09/26/2024 Surgeon: Surgeons and Role: [...] distal anastomoses with Prolene tag on latter. Kemah drain placed from left groin to left [...] ANAEROBIC Hayley Torres MD 09/26/2024 1702 Drains: Kemah drain between left groin to left thigh [...] HPI/Surgical Indications: 49M with history of left TURN OPERATOR-BK popliteal artery bypass graft with PTFE [...] Torres MD - 09/27/2024 4:27 PM EST [facility] Operative Note Patient Name: Geovanna Dixon Jr. : [id number] MR#: [id number] Case Date: 09/27/2024 Surgeon: Surgeons and Role: [...] 2nd toe amputation who was transferred from [facility] given concern for infected left fem-BK popliteal [...] smoking 1 week ago. He presented to [facility] on 09/26 and went to the [...] outpatient diabetes regimen: Diabetes Provider: PCP in [facility] Medications: Lantus 50 units, lispro 10 [...] Cunningham APRN Endocrinology Diabetes Management Service Pager: [phone] Weekends please page [phone] 80 minute visit was spent in counseling [...] 180 days) Any patient receiving care in [place] must abide by [place] law. The hierarchy [...] In the past 12 months has the [employer], gas, oil, or water [employer] threatened to shut off services in your [...] none Home Address confirmed as: [address] [place] [address] Social & Family Supports: All names listed [...] his home before. Health/Prescription Coverage: Primary Insurance: [employer]CARE MANAGED MEDICARE Payor: [employer] PartnersCARE MANAGED MEDICARE / Plan: [facility] MANAGED MEDICARE PPO / Product Type: *No Product type* / Secondary Insurance: N/A ; Prescription Coverage: Yes Preferred Pharmacy: [id number] - [place], [place] - [address] [facility] [address] [facility] [address] - [place], [place] - [address] [address] [place], [place] - [address] [place] [address] [address] [facility] [address] [facility] [address] Status: Patient is a : No Primary Care Provider confirmed: JUSTIN Roberson [phone] Patient/Caregiver Goals of Treatment: patient will need [...] referrals are placed. Provided patient with [facility] Star Quality Rating handout. They have requested referrals to: [facility] [employer]. [address] [place] [id number] Expected date of discharge: TBD Referral routed to the Flower Grader for matching with agency/vendor and to provide [...] care as indicated. Penny ROSAS, RN Phone: [phone] Pager: [phone] * Consult Note - Stacey Thomas MD [...] extremity aching prompting him to go to [facility]. The groin pain dissipated. About a week later on 09/26 he developed left-sided groin pain prompting him to go to [facility] once again. Lab work notable for WBC count of 21, lactic acid 3.6. He underwent evaluation with a CT scan demonstrating an abscess from the left groin operative site the entire left of the graft down by the knee. He was transferred to [facility] for further care and he [...] 3.51) performed by Thony Garcia MD at [facility] MAIN OR PRO BYPASS GRAFT OTHR, FEM-TIBIAL Left 08/01/2024 @BYPASS GRAFT, FEM-ANT TIBIAL, -POST TIBIAL, -PERONEAL, -DP W\ SYNTHETIC CONDUIT (WRVU 23.66) performed by Lisette Maldonado MD at [facility] MAIN OR PRO CABG, ARTERY-VEIN, SINGLE 01/04/2012 @CABG, VENOUS & ARTERIAL GRAFT;SINGLE VEIN GRAFT performed by INNA TOVAR at [facility] MAIN OR PRO ENDOSCOPY W/VIDEO-ASST VEIN HARVEST, CABG 01/04/2012 ENDOSCOPIC HARVEST VEIN(S) FOR CABG performed by INNA TOVAR at [facility] MAIN OR VS ARTERIOGRAM LOWER EXTREMITY VASCULAR SURGERY 07/20/2024 VS Arteriogram Lower Extremity Vascular Surgery 07/20/2024 Anabel Finney MD [facility] INTERVENTIONL RAD Medications: potassium chloride [...] Continuous Infusions: lactated Ringers 100 mL/hr (09/27/24 6484) sodium chloride 0.9% PRN Meds:.potassium chloride ER [...] admitted to SICU as a transfer from [facility] for suspected graft infection/sepsis. A/Ox4, able to [...] Torres MD - 09/26/2024 4:50 PM EST [facility] Operative Note Patient Name: Geovanna Dixon Jr. : [id number] MR#: [id number] Case Date: 09/26/2024 Surgeon: Surgeons and Role: * Hayley Torres MD - Primary * Dolly Dan MD - Resident - Assisting * Ken Moeller MD - Resident - Assisting Preoperative diagnosis: left infected femoral to below knee bypass graft Postoperative diagnosis: left infected femoral to below knee bypass graft Procedure: Explant of infected LEFT TURN OPERATOR to below-knee popliteal artery PTFE bypass [...] Indications: 49M with history of a left TURN OPERATOR-BK popliteal artery bypass with PTFE performed [...] tunnel using a large Amy clamp, and Kemah drains were used to prevent the tunnel [...] 2nd toe amputation who was transferred from [facility] given concern for infected left fem-BK popliteal [...] 3.51) performed by Thony Garcia MD at [facility] MAIN OR PRO BYPASS GRAFT OTHR, FEM-TIBIAL Left 08/01/2024 @BYPASS GRAFT, FEM-ANT TIBIAL, -POST TIBIAL, -PERONEAL, -DP W\ SYNTHETIC CONDUIT (WRVU 23.66) performed by Lisette Maldonado MD at [facility] MAIN OR PRO CABG, ARTERY-VEIN, SINGLE 01/04/2012 @CABG, VENOUS & ARTERIAL GRAFT;SINGLE VEIN GRAFT performed by INNA TOVAR at [facility] MAIN OR PRO ENDOSCOPY W/VIDEO-ASST VEIN HARVEST, CABG 01/04/2012 ENDOSCOPIC HARVEST VEIN(S) FOR CABG performed by INNA TOVAR at [facility] MAIN OR VS ARTERIOGRAM LOWER EXTREMITY VASCULAR SURGERY 07/20/2024 VS Arteriogram Lower Extremity Vascular Surgery 07/20/2024 Anabel Finney MD [facility] INTERVENTIONL RAD Social Hx: Social [...] 3 times daily. Use as instructed Indications: [id number] each 1 FreeStyle Lancets 28 gauge Misc [...] 2nd toe amputation who was transferred from [facility] given concern for infected left fem-BK popliteal [...] EST Office Visit [place] [address] Isabela Hayward APRN [facility] [place] [address] 11/10/2024 10:00 AM EST Office Visit [place] [address] Dai Whitman, RESHMA 11/21/2024 2:15 PM EST Office Visit [place] [address] Dayanara Grover MD [facility] [place] [address] Pending Results Name Type Priority Associated Diagnoses [...] 4:49 PM EST Debridement, Skin, Sub-Q Tissue (24401) 10/04/2024 3:10 PM EST Status post explant of infected left TURN OPERATOR-BK pop bypass graft DEBRIDEMENT SKIN AND SUBCU, [...] CENTER EGFR - External 104.05 [facility] Anion Gap - External 11.6(H) [facility] Sodium - External 141 [facility] Potassium - External 4.3 [facility] Chloride - External 103 [facility] CO2 - External 26.4 [facility] Calcium - External 9.0 [facility] [...] Hernandez MD CHEMISTRY ORDERABLES Performing Organization Address City/[facility]/ZIP Co de Phone Number [address] [phone] * CK (10/16/2024) CK, Total - External 39 [facility] Blood VENOUS BLOOD SPECIMEN / Unknown 10/16/2024 Amaya Hernandez MD CHEMISTRY ORDERABLES [address] [place] [address] [phone] * (ABNORMAL) CBC (with Diff) (10/16/2024) WBC - External 10.99(H) [facility] RBC - External 3.71(L) [facility] Hemoglobin - External 10.8(L) [facility] Hematocrit - External 33.8(L) [facility] MCV - External 91 [facility] MCH - External 29.1 [facility] MCHC - External 32.0 [facility] RDWCV - External 14.2(H) [facility] Platelets - External 512(H) [facility] MPV - External 9.8 [facility] NRBC % - External 0.0 [facility] [...] 10/16/2024 Amaya Hernandez MD HEMATOLOGY ORDERABLE S [place] [id number] [facility] [address] [place] [phone] * POC, GLUCOSE (10/10/2024 4:27 PM EST) [facility] Signature Glucometer, POC 172 65 - 199 mg/dL 10/10/2024 4:27 PM EST [facility] Comment:Supplemental ranges: <140 mg/dL before meals <180 mg/dL all other times of the day. Blood CAPILLARY BLOOD / Unknown 10/10/2024 4:27 PM EST 10/10/2024 4:27 PM EST Hayley Torres MD POINT OF CARE TEST O RDERABLES Performing Organization Address [facility] Co de Phone Number [facility] [place] [address] * POC, GLUCOSE (10/10/2024 11:10 AM EST) Glucometer, POC 174 65 - 199 mg/dL 10/10/2024 11:11 AM EST [facility] Comment:Supplemental ranges: <140 mg/dL before meals <180 mg/dL all other times of the day. Blood CAPILLARY BLOOD / Unknown 10/10/2024 11:10 AM EST 10/10/2024 11:11 AM EST Hayley Torres MD POINT OF CARE TEST O RDERAHERNANDEZ Performing Organization Address [facility] de Phone Number [facility] [place] [address] * POC, GLUCOSE (10/10/2024 7:46 AM EST) Glucometer, POC 141 65 - 199 mg/dL 10/10/2024 7:46 AM EST [facility] Comment:Supplemental ranges: <140 mg/dL before meals <180 mg/dL all other times of the day. Blood CAPILLARY BLOOD / Unknown 10/10/2024 7:46 AM EST 10/10/2024 7:46 AM EST Hayley Torres MD POINT OF CARE TEST O RDERAHERNANDEZ Performing Organization Address City/[facility] Co de Phone Number [facility] [place] [address] * POC, GLUCOSE (10/10/2024 6:11 AM EST) Glucometer, POC 127 65 - 199 mg/dL 10/10/2024 6:11 AM EST [facility] Comment:Supplemental ranges: <140 mg/dL before meals <180 mg/dL all other times of the day. Blood CAPILLARY BLOOD / Unknown 10/10/2024 6:11 AM EST 10/10/2024 6:11 AM EST Hayley Torres MD POINT OF CARE TEST O RDERABLES [facility] [place] [address] * CK (10/10/2024 12:33 AM EST) Pathologist [facility] Creatine Kinase 32 0 - 200 unit/L 10/10/2024 8:[address] [facility] Blood VENOUS BLOOD SPECIMEN / Unknown Venipuncture / Unknown 10/10/2024 12:33 AM EST 10/10/2024 12:43 AM EST María Carranza APRN CHEMISTRY ORDER RANDELL Performing Organization Address City/[facility]/ZIP Co de Phone Number [facility] [place] [address] * (ABNORMAL) CBC (with Diff) (10/10/2024 12:33 AM EST) [facility] White Blood Cell 11.57(H) 4.00 - 9.50 x10(3)/mc L 10/10/2024 12:[address] [facility] Red Blood Cell 3.75(L) 4.58 - 5.54 x10(6)/mc L 10/10/2024 12:[address] [facility] Hemoglobin 11.1(L) 13.7 - 16.5 g/dL 10/10/2024 12:[address] [facility] Hematocrit 33.5(L) 40.5 - 48.5 % 10/10/2024 12:[address] [facility] Mean Cell Volume 89.3 82.9 - 93.1 fL 10/10/2024 12:[address] [facility] Mean Cell Hemoglobin 29.6 27.5 - 32.1 pg 10/10/2024 12:[address] [facility] Mean Cell Hemoglobin Concentration 33.1 32.0 - 35.7 g/dL 10/10/2024 12:[address] [facility] Platelet 823(H) 145 - 357 x10(3)/mc L 10/10/2024 12:[address] [facility] Mean Platelet Volume 9.2 7.6 - 12.9 fL 10/10/2024 12:[address] [facility] RDW Standard Deviation 46.3(H) 36.0 - 45.0 fL 10/10/2024 12:[address] [facility] RDW coefficient of variation 14.6(H) 11.4 - 13.8 % 10/10/2024 12:[address] [facility] NRBC% auto 0.0 % 10/10/2024 12:[address] [facility] NRBC Absolute <0.01 <0.01 x10(3)/mc L 10/10/2024 12:[address] [facility] Neutrophil % 61.3 % 10/10/2024 12:[address] [facility] Neutrophil Absolute (ANC) - Automated 7.08(H) 1.70 - 6.10 x10(3)/mc L 10/10/2024 12:[address] [facility] Lymph % 28.7 % 10/10/2024 12:[address] [facility] Lymph Absolute 3.32(H) 0.90 - 3.20 x10(3)/mc L 10/10/2024 12:[address] [facility] Monocyte % 7.0 % 10/10/2024 12:[address] [facility] Monocyte Absolute 0.81 0.30 - 0.90 x10(3)/mc L 10/10/2024 12:[address] [facility] Eos % 1.6 % 10/10/2024 12:[address] [facility] Eos Absolute 0.19 0.00 - 0.40 x10(3)/mc L 10/10/2024 12:[address] [facility] Basophil % 1.0 % 10/10/2024 12:[address] [facility] Baso Absolute 0.12(H) 0.00 - 0.10 x10(3)/mc L 10/10/2024 12:[address] [facility] Immature Gran % 0.4 % 12:[address] [facility] Immature Gran Absolute 0.05(H) 0.00 - 0.04 x10(3)/mc L 10/10/2024 12:[address] [facility] Blood VENOUS BLOOD SPECIMEN / Unknown Venipuncture / Unknown 10/10/2024 12:33 AM EST 10/10/2024 12:43 AM EST Hayley Torres MD HEMATOLOGY ORDERABLE S [facility] [place] [address] * (ABNORMAL) Basic Metabolic Panel (10/10/2024 12:33 AM EST) Glucose 125 65 - 199 mg/dL 10/10/2024 1:[address] [facility] Comment:Glucose Concentratio n >=200 mg/dL plus symptoms is consistent with Diabetes Mellitus. Blood Urea Nitrogen 19 10 - 20 mg/dL 10/10/2024 1:[address] [facility] Creatinine 0.57(L) 0.80 - 1.50 mg/dL 10/10/2024 1:[address] [facility] Sodium 138 135 - 145 mMol/L 10/10/2024 1:[address] [facility] Potassium 4.1 3.5 - 5.0 mMol/L 10/10/2024 1:[address] [facility] Chloride 103 98 - 107 mMol/L 10/10/2024 1:[address] [facility] Carbon Dioxide 25 22 - 31 mMol/L 10/10/2024 1:[address] [facility] Anion Gap 10 5 - 15 mMol/L 10/10/2024 1:[address] [facility] Calcium [...] MD CHEMISTRY ORDERABLES [facility] [place] [address] * Phosphorus (10/10/2024 12:33 AM EST) Phosphorus 3.8 2.5 - 4.5 mg/dL 10/10/2024 1:12 AM EST [facility] Blood VENOUS BLOOD SPECIMEN / Unknown Venipuncture / Unknown 10/10/2024 12:33 AM EST 10/10/2024 12:43 AM EST Hayley Torres MD CHEMISTRY ORDERABLES [facility] [place] [address] * Magnesium (10/10/2024 12:33 AM EST) Magnesium 0.81 0.69 - 1.07 mMol/L 10/10/2024 1:12 AM EST [facility] Blood VENOUS BLOOD SPECIMEN / Unknown Venipuncture / Unknown 10/10/2024 12:33 AM EST 10/10/2024 12:43 AM EST Hayley Torres MD CHEMISTRY ORDERABLES Performing Organization Address City/[facility]/ZIP Co de Phone Number [facility] [place] [address] * POC, GLUCOSE (10/10/2024 12:31 AM EST) Glucometer, POC 119 65 - 199 mg/dL 10/10/2024 12:32 AM EST [facility] Comment:Supplemental ranges: <140 mg/dL before meals <180 mg/dL all other times of the day. Blood CAPILLARY BLOOD / Unknown 10/10/2024 12:31 AM EST 10/10/2024 12:32 AM EST Hayley Torres MD POINT OF CARE TEST O RDERABLES Performing Organization Address City/[facility]/ZIP Co de Phone Number [facility] [place] [address] * POC, GLUCOSE (10/09/2024 8:16 PM EST) Glucometer, POC 104 65 - 199 mg/dL 10/09/2024 8:16 PM EST [facility] Comment:Supplemental ranges: <140 mg/dL before meals <180 mg/dL all other times of the day. Blood CAPILLARY BLOOD / Unknown 10/09/2024 8:16 PM EST 10/09/2024 8:16 PM EST Hayley Torres MD POINT OF CARE TEST O RDERABLES [facility] [place] [address] * POC, GLUCOSE (10/09/2024 3:57 PM EST) Glucometer, POC 120 65 - 199 mg/dL 10/09/2024 3:57 PM EST [facility] Comment:Supplemental ranges: <140 mg/dL before meals <180 mg/dL all other times of the day. Blood CAPILLARY BLOOD / Unknown 10/09/2024 3:57 PM EST 10/09/2024 3:57 PM EST Hayley Torres MD POINT OF CARE TEST O RDERAHERNANDEZ [facility] [place] [address] * Place PICC Line: Contact Vascular Access Page [phone] Extremity to exclude: No restrictions; Is PICC [...] to the planned procedure. Hand Hygiene: The isotope technician did perform hand hygiene prior to line insertion. Catheter type: PICC Lot number: [id number] Procedure Technique: Skin was prepped with chlorhexidine. [...] Guidance (IV Team) (10/09/2024 1:55 PM EST) [employer] WORKSTATION ID [id number] [facility] Anatomical Region Laterality Modality N/A [...] who have questions please contact the health skin care specialist that requested your imaging first. ? Electronically signed by: Terell Salvador MD, [facility] ([phone]), at 10/09/2024 3:30 PM Narrative 10/09/2024 3:30 [...] patients who have questions please contactthe health skin care specialist that requested your imaging first. Electronically signed by: Terell Salvador MD, [facility]([phone]), at 10/09/2024 3:30 PM María Carranza APRN [facility] * POC, GLUCOSE (10/09/2024 11:40 AM EST) [facility] Glucometer, POC 180 65 - 199 mg/dL 10/09/2024 11:40 AM EST [facility] Comment:Supplemental ranges: <140 mg/dL before meals <180 mg/dL all other times of the day. Blood CAPILLARY BLOOD / Unknown 10/09/2024 11:40 AM EST 10/09/2024 11:41 AM EST Hayley Torres MD POINT OF CARE TEST O GILDA Performing Organization Address [facility] de Phone Number [facility] [place] [address] * (ABNORMAL) POC, GLUCOSE (10/09/2024 7:35 AM EST) Glucometer, POC 215(H) 65 - 199 mg/dL 10/09/2024 7:36 AM EST [facility] Comment:Supplemental ranges: <140 mg/dL before meals <180 mg/dL all other times of the day. Blood CAPILLARY BLOOD / Unknown 10/09/2024 7:35 AM EST 10/09/2024 7:36 AM EST Hayley Torres MD POINT OF CARE TEST O GILDA Performing Organization Address [facility] de Phone Number [facility] [place] [address] * POC, GLUCOSE (10/09/2024 4:26 AM EST) Glucometer, POC 175 65 - 199 mg/dL 10/09/2024 4:26 AM EST [facility] Comment:Supplemental ranges: <140 mg/dL before meals <180 mg/dL all other times of the day. Blood CAPILLARY BLOOD / Unknown 10/09/2024 4:26 AM EST 10/09/2024 4:26 AM EST Hayley Torres MD POINT OF CARE TEST O GILDA Performing Organization Address [facility] Co de Phone Number [facility] [place] [address] * (ABNORMAL) CBC (with Diff) (10/09/2024 12:45 AM EST) White Blood Cell 11.27(H) 4.00 - 9.50 x10(3)/mc L 10/09/2024 1:31 AM EST [facility] Red Blood Cell 3.74(L) 4.58 - 5.54 x10(6)/mc L 10/09/2024 1:[address] [facility] Hemoglobin 10.8(L) 13.7 - 16.5 g/dL 10/09/2024 1:[address] [facility] Hematocrit 33.5(L) 40.5 - 48.5 % 10/09/2024 1:[address] [facility] Mean Cell Volume 89.6 82.9 - 93.1 fL 10/09/2024 1:[address] [facility] Mean Cell Hemoglobin 28.9 27.5 - 32.1 pg 10/09/2024 1:[address] [facility] Mean Cell Hemoglobin Concentration 32.2 32.0 - 35.7 g/dL 10/09/2024 1:[address] [facility] Platelet 886(H) 145 - 357 x10(3)/mc L 10/09/2024 1:[address] [facility] Mean Platelet Volume 9.5 7.6 - 12.9 fL 10/09/2024 1:[address] [facility] RDW Standard Deviation 47.7(H) 36.0 - 45.0 fL 10/09/2024 1:[address] [facility] RDW coefficient of variation 14.6(H) 11.4 - 13.8 % 10/09/2024 1:[address] [facility] NRBC% auto 0.0 % 10/09/2024 1:[address] [facility] NRBC Absolute <0.01 <0.01 x10(3)/mc L 10/09/2024 1:[address] [facility] Neutrophil % 61.7 % 10/09/2024 1:[address] [facility] Neutrophil Absolute (ANC) - Automated 6.95(H) 1.70 - 6.10 x10(3)/mc L 10/09/2024 1:[address] [facility] Lymph % 28.3 % 10/09/2024 1:[address] [facility] Lymph Absolute 3.19 0.90 - 3.20 x10(3)/mc L 10/09/2024 1:[address] [facility] Monocyte % 6.8 % 10/09/2024 1:[address] [facility] Monocyte Absolute 0.77 0.30 - 0.90 x10(3)/mc L 10/09/2024 1:[address] [facility] Eos % 1.5 % 10/09/2024 1:[address] [facility] Eos Absolute 0.17 0.00 - 0.40 x10(3)/mc L 10/09/2024 1:[address] [facility] Basophil % 1.1 % 10/09/2024 1:[address] [facility] Baso Absolute 0.12(H) 0.00 - 0.10 x10(3)/mc L 10/09/2024 1:[address] [facility] Immature Gran % 0.6 % 1:[address] [facility] Immature Gran Absolute 0.07(H) 0.00 - 0.04 x10(3)/mc L 10/09/2024 1:[address] [facility] Blood VENOUS BLOOD SPECIMEN / Unknown Venipuncture / Unknown 10/09/2024 12:45 AM EST 10/09/2024 1:27 AM EST Hayley Torres MD HEMATOLOGY ORDERABLE S [facility] [place] [address] * (ABNORMAL) Basic Metabolic Panel (10/09/2024 12:45 AM EST) Glucose 135 65 - 199 mg/dL 10/09/2024 1:[address] [facility] Comment:Glucose Concentratio n >=200 mg/dL plus symptoms is consistent with Diabetes Mellitus. Blood Urea Nitrogen 22(H) 10 - 20 mg/dL 10/09/2024 1:[address] [facility] Creatinine 0.53(L) 0.80 - 1.50 mg/dL 10/09/2024 1:[address] [facility] Sodium 138 135 - 145 mMol/L 10/09/2024 1:[address] [facility] Potassium 4.1 3.5 - 5.0 mMol/L 10/09/2024 1:[address] [facility] Chloride 102 98 - 107 mMol/L 10/09/2024 1:[address] [facility] Carbon Dioxide 24 22 - 31 mMol/L 10/09/2024 1:[address] [facility] Anion Gap 12 5 - 15 mMol/L 10/09/2024 1:[address] [facility] Calcium 9.4 8.5 - 10.5 mg/dL 10/09/2024 1:[address] [facility] Est Glomerular Filtration Rate - Male 122 mL/min/1. 73 m?? 10/09/2024 1:[address] [facility] Comment: [...] MD CHEMISTRY ORDERABLES [facility] [place] [address] * Phosphorus (10/09/2024 12:45 AM EST) Phosphorus 3.9 2.5 - 4.5 mg/dL 10/09/2024 1:54 AM EST [facility] Blood VENOUS BLOOD SPECIMEN / Unknown Venipuncture / Unknown 10/09/2024 12:45 AM EST 10/09/2024 1:27 AM EST Hayley Torres MD CHEMISTRY ORDERABLES Performing Organization Address City/[facility]/ZIP Co de Phone Number [facility] [place] [address] * Magnesium (10/09/2024 12:45 AM EST) [facility] Magnesium 0.80 0.69 - 1.07 mMol/L 10/09/2024 1:54 AM EST [facility] Blood VENOUS BLOOD SPECIMEN / Unknown Venipuncture / Unknown 10/09/2024 12:45 AM EST 10/09/2024 1:27 AM EST Hayley Torres MD CHEMISTRY ORDERABLES Performing Organization Address [facility]/ZIP Co de Phone Number [facility] [place] [address] * POC, GLUCOSE (10/09/2024 12:11 AM EST) [facility] Glucometer, POC 157 65 - 199 mg/dL 10/09/2024 12:11 AM EST [facility] Comment:Supplemental ranges: <140 mg/dL before meals <180 mg/dL all other times of the day. Blood CAPILLARY BLOOD / Unknown 10/09/2024 12:11 AM EST 10/09/2024 12:11 AM EST Hayley Torres MD POINT OF CARE TEST O RDERABLES Performing Organization Address City/[facility]/ZIP Co de Phone Number [facility] [place] [address] * POC, GLUCOSE (10/08/2024 7:25 PM EST) Glucometer, POC 157 65 - 199 mg/dL 10/08/2024 7:25 PM EST [facility] Comment:Supplemental ranges: <140 mg/dL before meals <180 mg/dL all other times of the day. Blood CAPILLARY BLOOD / Unknown 10/08/2024 7:25 PM EST 10/08/2024 7:25 PM EST Hayley Torres MD POINT OF CARE TEST O GILDA Performing Organization Address City/State/[facility] Co de Phone Number [facility] [place] [address] * POC, GLUCOSE (10/08/2024 5:54 PM EST) Glucometer, POC 198 65 - 199 mg/dL 10/08/2024 5:54 PM EST [facility] Comment:Supplemental ranges: <140 mg/dL before meals <180 mg/dL all other times of the day. Blood CAPILLARY BLOOD / Unknown 10/08/2024 5:54 PM EST 10/08/2024 5:54 PM EST Hayley Torres MD POINT OF CARE TEST O GILDA Performing Organization Address [facility] Co de Phone Number [facility] [place] [address] * (ABNORMAL) POC, GLUCOSE (10/08/2024 4:08 PM EST) Glucometer, POC 281(H) 65 - 199 mg/dL 10/08/2024 4:08 PM EST [facility] Comment:Supplemental ranges: <140 mg/dL before meals <180 mg/dL all other times of the day. Blood CAPILLARY BLOOD / Unknown 10/08/2024 4:08 PM EST 10/08/2024 4:09 PM EST Hayley Torres MD POINT OF CARE TEST Stephanie VO [facility] [place] [address] * POC, GLUCOSE (10/08/2024 12:44 PM EST) Glucometer, POC 146 65 - 199 mg/dL 10/08/2024 12:44 PM EST [facility] Comment:Supplemental ranges: <140 mg/dL before meals <180 mg/dL all other times of the day. Blood CAPILLARY BLOOD / Unknown 10/08/2024 12:44 PM EST 10/08/2024 12:44 PM EST Hayley Torres MD POINT OF CARE TEST O GILDA Performing Organization Address City/[facility]/ZIP Co de Phone Number [facility] [place] [address] * POC, GLUCOSE (10/08/2024 8:30 AM EST) Glucometer, POC 172 65 - 199 mg/dL 10/08/2024 8:30 AM EST [facility] Comment:Supplemental ranges: <140 mg/dL before meals <180 mg/dL all other times of the day. Blood CAPILLARY BLOOD / Unknown 10/08/2024 8:30 AM EST 10/08/2024 8:30 AM EST Hayley Torres MD POINT OF CARE TEST O GILDA Performing Organization Address City/[facility]/ZIP Co de Phone Number [facility] [place] [address] * Vancomycin Level, Random (10/08/2024 5:59 AM EST) Vancomycin, Random 6.8 mg/L 2023 7:58 AM EST [facility] Comment:This level is for de termination of the patient's vancomycin wxbb-dcqwa-dvc-curve (AUC) value. Contact the inpatient pharmacy for interpretation. Blood VENOUS BLOOD SPECIMEN / Unknown Venipuncture / Unknown 10/08/2024 5:59 AM EST 10/08/2024 7:29 AM EST Hayley Torres MD CHEMISTRY ORDERABLES Performing Organization Address City/[facility]/ZIP Co de Phone Number [facility] [place] [address] * POC, GLUCOSE (10/08/2024 4:02 AM EST) Pathologist [facility] Glucometer, POC 163 65 - 199 mg/dL 10/08/2024 4:[address] [facility] Comment:Supplemental ranges: <140 mg/dL before meals <180 mg/dL all other times of the day. Blood CAPILLARY BLOOD / Unknown 10/08/2024 4:02 AM EST 10/08/2024 4:02 AM EST Hayley Torres MD POINT OF CARE TEST O RDERABLES Performing Organization Address [facility]/ZIP Co de Phone Number [facility] [place] [address] * (ABNORMAL) CBC (with Diff) (10/08/2024 12:08 AM EST) [facility] White Blood Cell 10.35(H) 4.00 - 9.50 x10(3)/mc L 10/08/2024 12:[address] [facility] Red Blood Cell 3.53(L) 4.58 - 5.54 x10(6)/mc L 10/08/2024 12:[address] [facility] Hemoglobin 10.2(L) 13.7 - 16.5 g/dL 10/08/2024 12:[address] [facility] Hematocrit 31.7(L) 40.5 - 48.5 % 10/08/2024 12:[address] [facility] Mean Cell Volume 89.8 82.9 - 93.1 fL 10/08/2024 12:[address] [facility] Mean Cell Hemoglobin 28.9 27.5 - 32.1 pg 10/08/2024 12:[address] [facility] Mean Cell Hemoglobin Concentration 32.2 32.0 - 35.7 g/dL 10/08/2024 12:[address] [facility] Platelet 778(H) 145 - 357 x10(3)/mc L 10/08/2024 12:[address] [facility] Mean Platelet Volume 9.1 7.6 - 12.9 fL 10/08/2024 12:[address] [facility] RDW Standard Deviation 47.5(H) 36.0 - 45.0 fL 10/08/2024 12:[address] [facility] RDW coefficient of variation 14.6(H) 11.4 - 13.8 % 10/08/2024 12:[address] [facility] NRBC% auto 0.0 % 10/08/2024 12:[address] [facility] NRBC Absolute <0.01 <0.01 x10(3)/mc L 10/08/2024 12:[address] [facility] Neutrophil % 60.9 % 10/08/2024 12:[address] [facility] Neutrophil Absolute (ANC) - Automated 6.30(H) 1.70 - 6.10 x10(3)/mc L 10/08/2024 12:[address] [facility] Lymph % 28.4 % 10/08/2024 12:[address] [facility] Lymph Absolute 2.94 0.90 - 3.20 x10(3)/mc L 10/08/2024 12:[address] [facility] Monocyte % 7.2 % 10/08/2024 12:[address] [facility] Monocyte Absolute 0.75 0.30 - 0.90 x10(3)/mc L 10/08/2024 12:[address] [facility] Eos % 1.7 % 10/08/2024 12:[address] [facility] Eos Absolute 0.18 0.00 - 0.40 x10(3)/mc L 10/08/2024 12:[address] [facility] Basophil % 1.0 % 10/08/2024 12:[address] [facility] Baso Absolute 0.10 0.00 - 0.10 x10(3)/mc L 10/08/2024 12:[address] [facility] Immature Gran % 0.8 % 12:[address] [facility] Immature Gran Absolute 0.08(H) 0.00 - 0.04 x10(3)/mc L 10/08/2024 12:[address] [facility] Blood VENOUS BLOOD SPECIMEN / Unknown Venipuncture / Unknown 10/08/2024 12:08 AM EST 10/08/2024 12:23 AM EST Hayley Torres MD HEMATOLOGY ORDERABLE S Performing Organization Address City/State/[facility] Co de Phone Number [facility] [place] [address] * (ABNORMAL) Basic Metabolic Panel (10/08/2024 12:08 AM EST) Glucose 151 65 - 199 mg/dL 10/08/2024 12:[address] [facility] Comment:Glucose Concentratio n >=200 mg/dL plus symptoms is consistent with Diabetes Mellitus. Blood Urea Nitrogen 19 10 - 20 mg/dL 10/08/2024 12:[address] [facility] Creatinine 0.60(L) 0.80 - 1.50 mg/dL 10/08/2024 12:[address] [facility] Sodium 135 135 - 145 mMol/L 10/08/2024 12:[address] [facility] Potassium 3.8 3.5 - 5.0 mMol/L 10/08/2024 12:[address] [facility] LABORATORY Chloride 101 98 - 107 mMol/L 10/08/2024 12:[address] [facility] Carbon Dioxide 25 22 - 31 mMol/L 10/08/2024 12:[address] [facility] Anion Gap 9 5 - 15 mMol/L 10/08/2024 12:50 AM EST [facility] Calcium 9.2 8.5 - 10.5 mg/dL 10/08/2024 12:50 AM EST [facility] Est Glomerular Filtration Rate - Male 118 mL/min/1. 73 m?? 10/08/2024 12:50 AM EST [facility] Comment: [...] MD CHEMISTRY ORDERABLES [facility] [place] [address] * Phosphorus (10/08/2024 12:08 AM EST) Phosphorus 3.4 2.5 - 4.5 mg/dL 10/08/2024 12:50 AM EST [facility] Blood VENOUS BLOOD SPECIMEN / Unknown Venipuncture / Unknown 10/08/2024 12:08 AM EST 10/08/2024 12:23 AM EST Hayley Torres MD CHEMISTRY ORDERABLES [facility] [place] [address] * Magnesium (10/08/2024 12:08 AM EST) Magnesium 0.85 0.69 - 1.07 mMol/L 10/08/2024 12:50 AM EST [facility] Blood VENOUS BLOOD SPECIMEN / Unknown Venipuncture / Unknown 10/08/2024 12:08 AM EST 10/08/2024 12:23 AM EST Hayley Torres MD CHEMISTRY ORDERABLES Performing Organization Address City/[facility]/ZIP Co de Phone Number [facility] [place] [address] * CK (10/08/2024 12:08 AM EST) Creatine Kinase 24 0 - 200 unit/L 10/08/2024 12:50 AM EST [facility] Blood VENOUS BLOOD SPECIMEN / Unknown Venipuncture / Unknown 10/08/2024 12:08 AM EST 10/08/2024 12:23 AM EST Hayley Torres MD CHEMISTRY ORDERABLES Performing Organization Address [facility] Co de Phone Number [facility] [place] [address] * POC, GLUCOSE (10/08/2024 12:05 AM EST) Glucometer, POC 100 65 - 199 mg/dL 10/08/2024 12:05 AM EST [facility] Comment:Supplemental ranges: <140 mg/dL before meals <180 mg/dL all other times of the day. Blood CAPILLARY BLOOD / Unknown 10/08/2024 12:05 AM EST 10/08/2024 12:05 AM EST Hayley Torres MD POINT OF CARE TEST O RDERABLES Performing Organization Address City/[facility] Co de Phone Number [facility] [place] [address] * POC, GLUCOSE (10/07/2024 8:29 PM EST) Glucometer, POC 107 65 - 199 mg/dL 10/07/2024 8:30 PM EST [facility] Comment:Supplemental ranges: <140 mg/dL before meals <180 mg/dL all other times of the day. Blood CAPILLARY BLOOD / Unknown 10/07/2024 8:29 PM EST 10/07/2024 8:30 PM EST Hayley Torres MD POINT OF CARE TEST O RDERAHERNANDEZ Performing Organization Address City/[facility]/ZIP Co de Phone Number [facility] [place] [address] * POC, GLUCOSE (10/07/2024 4:33 PM EST) Glucometer, POC 129 65 - 199 mg/dL 10/07/2024 4:33 PM EST [facility] Comment:Supplemental ranges: <140 mg/dL before meals <180 mg/dL all other times of the day. Blood CAPILLARY BLOOD / Unknown 10/07/2024 4:33 PM EST 10/07/2024 4:34 PM EST Hayley Torres MD POINT OF CARE TEST O GILDA Performing Organization Address [facility] Co de Phone Number [facility] [place] [address] * (ABNORMAL) POC, GLUCOSE (10/07/2024 10:58 AM EST) Glucometer, POC 221(H) 65 - 199 mg/dL 10/07/2024 10:59 AM EST [facility] Comment:Supplemental ranges: <140 mg/dL before meals <180 mg/dL all other times of the day. Blood CAPILLARY BLOOD / Unknown 10/07/2024 10:58 AM EST 10/07/2024 10:59 AM EST Hayley Torres MD POINT OF CARE TEST O GILDA Performing Organization Address City/[facility]/ZIP Co de Phone Number [facility] [place] [address] * (ABNORMAL) POC, GLUCOSE (10/07/2024 7:42 AM EST) Glucometer, POC 201(H) 65 - 199 mg/dL 10/07/2024 7:42 AM EST [facility] Comment:Supplemental ranges: <140 mg/dL before meals <180 mg/dL all other times of the day. Blood CAPILLARY BLOOD / Unknown 10/07/2024 7:42 AM EST 10/07/2024 7:43 AM EST Hayley Torres MD POINT OF CARE TEST O GILDA Performing Organization Address [facility] Co de Phone Number [facility] [place] [address] * POC, GLUCOSE (10/07/2024 3:58 AM EST) Glucometer, POC 150 65 - 199 mg/dL 10/07/2024 3:58 AM EST [facility] Comment:Supplemental ranges: <140 mg/dL before meals <180 mg/dL all other times of the day. Blood CAPILLARY BLOOD / Unknown 10/07/2024 3:58 AM EST 10/07/2024 3:58 AM EST Hayley Torres MD POINT OF CARE TEST O GILDA Performing Organization Address [facility]/ZIP Co de Phone Number [facility] [place] [address] * (ABNORMAL) CBC (with Diff) (10/07/2024 12:06 AM EST) Pathologist [facility] White Blood Cell 11.27(H) 4.00 - 9.50 x10(3)/mc L 10/07/2024 12:19 AM EST [facility] Red Blood Cell 3.47(L) 4.58 - 5.54 x10(6)/mc L 10/07/2024 12:19 AM EST [facility] Hemoglobin 10.1(L) 13.7 - 16.5 g/dL 10/07/2024 12:19 AM EST [facility] Hematocrit 30.9(L) 40.5 - 48.5 % 10/07/2024 12:[address] [facility] Mean Cell Volume 89.0 82.9 - 93.1 fL 10/07/2024 12:[address] [facility] Mean Cell Hemoglobin 29.1 27.5 - 32.1 pg 10/07/2024 12:[address] [facility] Mean Cell Hemoglobin Concentration 32.7 32.0 - 35.7 g/dL 10/07/2024 12:[address] [facility] Platelet 789(H) 145 - 357 x10(3)/mc L 10/07/2024 12:[address] [facility] Mean Platelet Volume 9.0 7.6 - 12.9 fL 10/07/2024 12:[address] [facility] RDW Standard Deviation 45.7(H) 36.0 - 45.0 fL 10/07/2024 12:[address] [facility] RDW coefficient of variation 14.3(H) 11.4 - 13.8 % 10/07/2024 12:[address] [facility] NRBC% auto 0.0 % 10/07/2024 12:[address] [facility] NRBC Absolute <0.01 <0.01 x10(3)/mc L 10/07/2024 12:[address] [facility] Neutrophil % 62.9 % 10/07/2024 12:[address] [facility] Neutrophil Absolute (ANC) - Automated 7.09(H) 1.70 - 6.10 x10(3)/mc L 10/07/2024 12:[address] [facility] Lymph % 28.3 % 10/07/2024 12:[address] [facility] Lymph Absolute 3.19 0.90 - 3.20 x10(3)/mc L 10/07/2024 12:[address] [facility] Monocyte % 5.7 % 10/07/2024 12:[address] [facility] Monocyte Absolute 0.64 0.30 - 0.90 x10(3)/mc L 10/07/2024 12:[address] [facility] Eos % 1.5 % 10/07/2024 12:[address] [facility] Eos Absolute 0.17 0.00 - 0.40 x10(3)/mc L 10/07/2024 12:[address] [facility] Basophil % 0.7 % 10/07/2024 12:[address] [facility] Baso Absolute 0.08 0.00 - 0.10 x10(3)/mc L 10/07/2024 12:[address] [facility] Immature Gran % 0.9 % 12:[address] [facility] Immature Gran Absolute 0.10(H) 0.00 - 0.04 x10(3)/mc L 10/07/2024 12:[address] [facility] Blood VENOUS BLOOD SPECIMEN / Unknown Venipuncture / Unknown 10/07/2024 12:06 AM EST 10/07/2024 12:11 AM EST Hayley Torres MD HEMATOLOGY ORDERABLE S [facility] [place] [address] * (ABNORMAL) Basic Metabolic Panel (10/07/2024 12:06 AM EST) Glucose 145 65 - 199 mg/dL 10/07/2024 12:[address] [facility] Comment:Glucose Concentratio n >=200 mg/dL plus symptoms is consistent with Diabetes Mellitus. Blood Urea Nitrogen 18 10 - 20 mg/dL 10/07/2024 12:[address] [facility] Creatinine 0.61(L) 0.80 - 1.50 mg/dL 10/07/2024 12:[address] [facility] Sodium 139 135 - 145 mMol/L 10/07/2024 12:[address] [facility] Potassium 4.0 3.5 - 5.0 mMol/L 10/07/2024 12:[address] [facility] Chloride 104 98 - 107 mMol/L 10/07/2024 12:[address] [facility] Carbon Dioxide 25 22 - 31 mMol/L 10/07/2024 12:[address] [facility] Anion Gap 10 5 - 15 mMol/L 10/07/2024 12:[address] [facility] Calcium 9.0 8.5 - 10.5 mg/dL 10/07/2024 12:[address] [facility] Est Glomerular Filtration Rate - Male 117 mL/min/1. 73 m?? 10/07/2024 12:[address] [facility] Comment: [...] MD CHEMISTRY ORDERABLES [facility] [place] [address] * Phosphorus (10/07/2024 12:06 AM EST) Phosphorus 4.2 2.5 - 4.5 mg/dL 10/07/2024 12:[address] [facility] Blood VENOUS BLOOD SPECIMEN / Unknown Venipuncture / Unknown 10/07/2024 12:06 AM EST 10/07/2024 12:11 AM EST Hayley Torres MD CHEMISTRY ORDERABLES Performing Organization Address [facility] Co de Phone Number [facility] [place] [address] * Magnesium (10/07/2024 12:06 AM EST) Magnesium 0.85 0.69 - 1.07 mMol/L 10/07/2024 12:40 AM EST [facility] Blood VENOUS BLOOD SPECIMEN / Unknown Venipuncture / Unknown 10/07/2024 12:06 AM EST 10/07/2024 12:11 AM EST Hayley Torres MD CHEMISTRY ORDERABLES Performing Organization Address [facility] Co de Phone Number [facility] [place] [address] * POC, GLUCOSE (10/07/2024 12:04 AM EST) Glucometer, POC 149 65 - 199 mg/dL 10/07/2024 12:04 AM EST [facility] Comment:Supplemental ranges: <140 mg/dL before meals <180 mg/dL all other times of the day. Blood CAPILLARY BLOOD / Unknown 10/07/2024 12:04 AM EST 10/07/2024 12:05 AM EST Hayley Torres MD POINT OF CARE TEST O RDERABLES Performing Organization Address City/[facility]/ZIP Co de Phone Number [facility] [place] [address] * POC, GLUCOSE (10/06/2024 7:24 PM EST) Glucometer, POC 151 65 - 199 mg/dL 10/06/2024 7:24 PM EST [facility] Comment:Supplemental ranges: <140 mg/dL before meals <180 mg/dL all other times of the day. Blood CAPILLARY BLOOD / Unknown 10/06/2024 7:24 PM EST 10/06/2024 7:24 PM EST Hayley Torres MD POINT OF CARE TEST O GILDA Performing Organization Address [facility] Co de Phone Number [facility] [place] [address] * POC, GLUCOSE (10/06/2024 5:32 PM EST) Glucometer, POC 126 65 - 199 mg/dL 10/06/2024 5:32 PM EST [facility] Comment:Supplemental ranges: <140 mg/dL before meals <180 mg/dL all other times of the day. Blood CAPILLARY BLOOD / Unknown 10/06/2024 5:32 PM EST 10/06/2024 5:32 PM EST Hayley Torres MD POINT OF CARE TEST O GILDA Performing Organization Address [facility] de Phone Number [facility] [place] [address] * XR PICC Placement Over 5 Years with Imaging Guidance (IV Team) (10/06/2024 3:04 PM EST) WORKSTATION ID [id number] RAD Anatomical Region Laterality Modality N/A Radio [...] who have questions please contact the health skin care specialist that requested your imaging first. ? Electronically signed by: Charles Hamilton MD, [facility] ??([phone]), at 10/06/2024 3:43 PM Narrative 10/06/2024 3:43 [...] patients who have questions please contactthe health skin care specialist that requested your imaging first. Electronically signed by: Charles Hamilton MD, [facility]([phone]), at 10/06/2024 3:43 PM Hayley Torres MD IMG FLUORO ORDERABLE S * Place PICC Line: Contact Vascular Access Page [phone] Extremity to exclude: No restrictions; Is PICC [...] to the planned procedure. Hand Hygiene: The isotope technician did perform hand hygiene prior to line insertion. Catheter type: PICC Lot number: [id number] Procedure Technique: Skin was prepped with chlorhexidine. [...] - 199 mg/dL 10/06/2024 12:12 PM EST [facility] Comment:Supplemental ranges: <140 mg/dL before meals <180 mg/dL all other times of the day. Blood CAPILLARY BLOOD / Unknown 10/06/2024 12:12 PM EST 10/06/2024 12:12 PM EST Hayley Torres MD POINT OF CARE TEST O GILDA [facility] [place] [address] * (ABNORMAL) POC, GLUCOSE (10/06/2024 7:34 AM EST) Glucometer, POC 209(H) 65 - 199 mg/dL 10/06/2024 7:34 AM EST [facility] Comment:Supplemental ranges: <140 mg/dL before meals <180 mg/dL all other times of the day. Blood CAPILLARY BLOOD / Unknown 10/06/2024 7:34 AM EST 10/06/2024 7:34 AM EST Hayley Torres MD POINT OF CARE TEST O GILDA Performing Organization Address City/[facility]/ZIP Co de Phone Number [facility] [place] [address] * POC, GLUCOSE (10/06/2024 3:29 AM EST) Glucometer, POC 151 65 - 199 mg/dL 10/06/2024 3:29 AM EST [facility] Comment:Supplemental ranges: <140 mg/dL before meals <180 mg/dL all other times of the day. Blood CAPILLARY BLOOD / Unknown 10/06/2024 3:29 AM EST 10/06/2024 3:29 AM EST Hayley Torres MD POINT OF CARE TEST O GILDA [facility] [place] [address] * Vancomycin Level, Random (10/06/2024 12:03 AM EST) Pathologist [facility] Vancomycin, Random 20.5 mg/L 2023 9:[address] [facility] Comment:This level is for de termination of the patient's vancomycin kkxm-xlcei-kfv-curve (AUC) value. Contact the inpatient pharmacy for interpretation. Blood VENOUS BLOOD SPECIMEN / Unknown Venipuncture / Unknown 10/06/2024 12:03 AM EST 10/06/2024 12:15 AM EST Hayley Torres MD CHEMISTRY ORDERABLES [facility] [place] [address] * (ABNORMAL) CBC (with Diff) (10/06/2024 12:03 AM EST) Pathologist [facility] White Blood Cell 12.26(H) 4.00 - 9.50 x10(3)/mc L 10/06/2024 12:[address] [facility] Red Blood Cell 3.49(L) 4.58 - 5.54 x10(6)/mc L 10/06/2024 12:[address] [facility] Hemoglobin 10.1(L) 13.7 - 16.5 g/dL 10/06/2024 12:[address] [facility] Hematocrit 30.9(L) 40.5 - 48.5 % 10/06/2024 12:[address] [facility] Mean Cell Volume 88.5 82.9 - 93.1 fL 10/06/2024 12:[address] [facility] Mean Cell Hemoglobin 28.9 27.5 - 32.1 pg 10/06/2024 12:[address] [facility] Mean Cell Hemoglobin Concentration 32.7 32.0 - 35.7 g/dL 10/06/2024 12:[address] [facility] Platelet 772(H) 145 - 357 x10(3)/mc L 10/06/2024 12:[address] [facility] Mean Platelet Volume 9.0 7.6 - 12.9 fL 10/06/2024 12:[address] [facility] RDW Standard Deviation 46.0(H) 36.0 - 45.0 fL 10/06/2024 12:[address] [facility] RDW coefficient of variation 14.5(H) 11.4 - 13.8 % 10/06/2024 12:[address] [facility] NRBC% auto 0.0 % 10/06/2024 12:[address] [facility] NRBC Absolute <0.01 <0.01 x10(3)/mc L 10/06/2024 12:[address] [facility] Neutrophil % 66.7 % 10/06/2024 12:[address] [facility] Neutrophil Absolute (ANC) - Automated 8.18(H) 1.70 - 6.10 x10(3)/mc L 10/06/2024 12:[address] [facility] Lymph % 24.1 % 10/06/2024 12:[address] [facility] Lymph Absolute 2.95 0.90 - 3.20 x10(3)/mc L 10/06/2024 12:[address] [facility] Monocyte % 6.2 % 10/06/2024 12:[address] [facility] Monocyte Absolute 0.76 0.30 - 0.90 x10(3)/mc L 10/06/2024 12:[address] [facility] Eos % 1.3 % 10/06/2024 12:[address] [facility] Eos Absolute 0.16 0.00 - 0.40 x10(3)/mc L 10/06/2024 12:[address] [facility] Basophil % 0.5 % 10/06/2024 12:[address] [facility] Baso Absolute 0.06 0.00 - 0.10 x10(3)/mc L 10/06/2024 12:[address] [facility] Immature Gran % 1.2 % 12:[address] [facility] Immature Gran Absolute 0.15(H) 0.00 - 0.04 x10(3)/mc L 10/06/2024 12:[address] [facility] Blood VENOUS BLOOD SPECIMEN / Unknown Venipuncture / Unknown 10/06/2024 12:03 AM EST 10/06/2024 12:15 AM EST Hayley Torres MD HEMATOLOGY ORDERABLE S [facility] [place] [address] * Basic Metabolic Panel (10/06/2024 12:03 AM EST) Glucose 94 65 - 199 mg/dL 10/06/2024 12:[address] [facility] Comment:Glucose Concentratio n >=200 mg/dL plus symptoms is consistent with Diabetes Mellitus. Blood Urea Nitrogen 17 10 - 20 mg/dL 10/06/2024 12:[address] [facility] Creatinine 0.85 0.80 - 1.50 mg/dL 10/06/2024 12:[address] [facility] Sodium 139 135 - 145 mMol/L 10/06/2024 12:[address] [facility] Potassium 4.3 3.5 - 5.0 mMol/L 10/06/2024 12:[address] [facility] Chloride 103 98 - 107 mMol/L 10/06/2024 12:[address] [facility] Carbon Dioxide 22 22 - 31 mMol/L 10/06/2024 12:[address] [facility] Anion Gap 14 5 - 15 mMol/L 10/06/2024 12:[address] [facility] Calcium 8.8 8.5 - 10.5 mg/dL 10/06/2024 12:44 AM EST [facility] Est Glomerular Filtration Rate - Male 106 mL/min/1. 73 m?? 10/06/2024 12:44 AM EST [facility] Comment: [...] MD CHEMISTRY ORDERABLES [facility] [place] [address] * Phosphorus (10/06/2024 12:03 AM EST) Phosphorus 4.3 2.5 - 4.5 mg/dL 10/06/2024 12:44 AM EST [facility] Blood VENOUS BLOOD SPECIMEN / Unknown Venipuncture / Unknown 10/06/2024 12:03 AM EST 10/06/2024 12:15 AM EST Hayley Torres MD CHEMISTRY ORDERABLES [facility] [place] [address] * Magnesium (10/06/2024 12:03 AM EST) Magnesium 0.83 0.69 - 1.07 mMol/L 10/06/2024 12:44 AM EST [facility] Blood VENOUS BLOOD SPECIMEN / Unknown Venipuncture / Unknown 10/06/2024 12:03 AM EST 10/06/2024 12:15 AM EST Hayley Torres MD CHEMISTRY ORDERABLES Performing Organization Address [facility] Co de Phone Number [facility] [place] [address] * POC, GLUCOSE (10/06/2024 12:02 AM EST) Glucometer, POC 98 65 - 199 mg/dL 10/06/2024 12:02 AM EST [facility] Comment:Supplemental ranges: <140 mg/dL before meals <180 mg/dL all other times of the day. Blood CAPILLARY BLOOD / Unknown 10/06/2024 12:02 AM EST 10/06/2024 12:02 AM EST Hayley Torres MD POINT OF CARE TEST O RDERABLES Performing Organization Address [facility] Co de Phone Number [facility] [place] [address] * POC, GLUCOSE (10/05/2024 7:22 PM EST) Glucometer, POC 186 65 - 199 mg/dL 10/05/2024 7:23 PM EST [facility] Comment:Supplemental ranges: <140 mg/dL before meals <180 mg/dL all other times of the day. Blood CAPILLARY BLOOD / Unknown 10/05/2024 7:22 PM EST 10/05/2024 7:23 PM EST Hayley Torres MD POINT OF CARE TEST O RDERAHERNANDEZ Performing Organization Address City/[facility] Co de Phone Number [facility] [place] [address] * POC, GLUCOSE (10/05/2024 5:35 PM EST) Glucometer, POC 177 65 - 199 mg/dL 10/05/2024 5:35 PM EST [facility] Comment:Supplemental ranges: <140 mg/dL before meals <180 mg/dL all other times of the day. Blood CAPILLARY BLOOD / Unknown 10/05/2024 5:35 PM EST 10/05/2024 5:35 PM EST Hayley Torres MD POINT OF CARE TEST O GILDA Performing Organization Address City/[facility]/ZIP Co de Phone Number [facility] [place] [address] * POC, GLUCOSE (10/05/2024 3:57 PM EST) Glucometer, POC 141 65 - 199 mg/dL 10/05/2024 3:57 PM EST [facility] Comment:Supplemental ranges: <140 mg/dL before meals <180 mg/dL all other times of the day. Blood CAPILLARY BLOOD / Unknown 10/05/2024 3:57 PM EST 10/05/2024 3:57 PM EST Hayley Torres MD POINT OF CARE TEST O GILDA Performing Organization Address [facility] Co de Phone Number [facility] [place] [address] * POC, GLUCOSE (10/05/2024 11:50 AM EST) Glucometer, POC 134 65 - 199 mg/dL 10/05/2024 11:50 AM EST [facility] Comment:Supplemental ranges: <140 mg/dL before meals <180 mg/dL all other times of the day. Blood CAPILLARY BLOOD / Unknown 10/05/2024 11:50 AM EST 10/05/2024 11:50 AM EST Hayley Torres MD POINT OF CARE TEST O GILDA Performing Organization Address City/[facility]/ZIP Co de Phone Number [facility] [place] [address] * POC, GLUCOSE (10/05/2024 7:51 AM EST) Glucometer, POC 114 65 - 199 mg/dL 10/05/2024 7:51 AM EST [facility] Comment:Supplemental ranges: <140 mg/dL before meals <180 mg/dL all other times of the day. Blood CAPILLARY BLOOD / Unknown 10/05/2024 7:51 AM EST 10/05/2024 7:51 AM EST Hayley Torres MD POINT OF CARE TEST O GILDA Performing Organization Address City/[facility] Co de Phone Number [facility] [place] [address] * POC, GLUCOSE (10/05/2024 4:18 AM EST) Glucometer, POC 147 65 - 199 mg/dL 10/05/2024 4:18 AM EST [facility] Comment:Supplemental ranges: <140 mg/dL before meals <180 mg/dL all other times of the day. Blood CAPILLARY BLOOD / Unknown 10/05/2024 4:18 AM EST 10/05/2024 4:18 AM EST Hayley Torres MD POINT OF CARE TEST Stephanie VO Performing Organization Address [facility] Co de Phone Number [facility] [place] [address] * (ABNORMAL) CBC (with Diff) (10/04/2024 11:50 PM EST) White Blood Cell 12.73(H) 4.00 - 9.50 x10(3)/mc L 10/05/2024 12:10 AM EST [facility] Red Blood Cell 3.45(L) 4.58 - 5.54 x10(6)/mc L 10/05/2024 12:10 AM EST [facility] Hemoglobin 9.8(L) 13.7 - 16.5 g/dL 10/05/2024 12:[address] [facility] Hematocrit 30.6(L) 40.5 - 48.5 % 10/05/2024 12:[address] [facility] Mean Cell Volume 88.7 82.9 - 93.1 fL 10/05/2024 12:[address] [facility] Mean Cell Hemoglobin 28.4 27.5 - 32.1 pg 10/05/2024 12:[address] [facility] Mean Cell Hemoglobin Concentration 32.0 32.0 - 35.7 g/dL 10/05/2024 12:[address] [facility] Platelet 709(H) 145 - 357 x10(3)/mc L 10/05/2024 12:[address] [facility] Mean Platelet Volume 8.9 7.6 - 12.9 fL 10/05/2024 12:[address] [facility] RDW Standard Deviation 45.4(H) 36.0 - 45.0 fL 10/05/2024 12:[address] [facility] RDW coefficient of variation 14.3(H) 11.4 - 13.8 % 10/05/2024 12:[address] [facility] NRBC% auto 0.0 % 10/05/2024 12:[address] [facility] NRBC Absolute <0.01 <0.01 x10(3)/mc L 10/05/2024 12:[address] [facility] Neutrophil % 68.5 % 10/05/2024 12:[address] [facility] Neutrophil Absolute (ANC) - Automated 8.72(H) 1.70 - 6.10 x10(3)/mc L 10/05/2024 12:[address] [facility] Lymph % 21.3 % 10/05/2024 12:[address] [facility] Lymph Absolute 2.71 0.90 - 3.20 x10(3)/mc L 10/05/2024 12:[address] [facility] Monocyte % 5.5 % 10/05/2024 12:[address] [facility] Monocyte Absolute 0.70 0.30 - 0.90 x10(3)/mc L 10/05/2024 12:[address] [facility] Eos % 1.6 % 10/05/2024 12:[address] [facility] Eos Absolute 0.20 0.00 - 0.40 x10(3)/mc L 10/05/2024 12:[address] [facility] Basophil % 0.5 % 10/05/2024 12:[address] [facility] Baso Absolute 0.07 0.00 - 0.10 x10(3)/mc L 10/05/2024 12:[address] [facility] Immature Gran % 2.6 % 12:[address] [facility] Immature Gran Absolute 0.33(H) 0.00 - 0.04 x10(3)/mc L 10/05/2024 12:[address] [facility] Blood VENOUS BLOOD SPECIMEN / Unknown Venipuncture / Unknown 10/04/2024 11:50 PM EST 10/05/2024 12:03 AM EST Hayley Torres MD HEMATOLOGY ORDERABLE S [facility] [place] [address] * (ABNORMAL) Basic Metabolic Panel (10/04/2024 11:50 PM EST) Glucose 104 65 - 199 mg/dL 10/05/2024 12:[address] [facility] Comment:Glucose Concentratio n >=200 mg/dL plus symptoms is consistent with Diabetes Mellitus. Blood Urea Nitrogen 13 10 - 20 mg/dL 10/05/2024 12:[address] [facility] Creatinine 0.55(L) 0.80 - 1.50 mg/dL 10/05/2024 12:[address] [facility] Sodium 140 135 - 145 mMol/L 10/05/2024 12:[address] [facility] Potassium 3.9 3.5 - 5.0 mMol/L 10/05/2024 12:[address] [facility] Chloride 105 98 - 107 mMol/L 10/05/2024 12:[address] [facility] Carbon Dioxide 24 22 - 31 mMol/L 10/05/2024 12:[address] [facility] Anion Gap 11 5 - 15 mMol/L 10/05/2024 12:[address] [facility] Calcium 9.0 8.5 - 10.5 mg/dL 10/05/2024 12:[address] [facility] Est Glomerular Filtration Rate - Male 121 mL/min/1. 73 m?? 10/05/2024 12:[address] [facility] Comment: [...] MD CHEMISTRY ORDERABLES [facility] [place] [address] * Phosphorus (10/04/2024 11:50 PM EST) Phosphorus 4.2 2.5 - 4.5 mg/dL 10/05/2024 12:[address] [facility] Blood VENOUS BLOOD SPECIMEN / Unknown Venipuncture / Unknown 10/04/2024 11:50 PM EST 10/05/2024 12:03 AM EST Hayley Torres MD CHEMISTRY ORDERABLES Performing Organization Address [facility] Co de Phone Number [facility] [place] [address] * Magnesium (10/04/2024 11:50 PM EST) Magnesium 0.89 0.69 - 1.07 mMol/L 10/05/2024 12:35 AM EST [facility] Blood VENOUS BLOOD SPECIMEN / Unknown Venipuncture / Unknown 10/04/2024 11:50 PM EST 10/05/2024 12:03 AM EST Hayley Torres MD CHEMISTRY ORDERABLES Performing Organization Address [facility] Co de Phone Number [facility] [place] [address] * POC, GLUCOSE (10/04/2024 11:36 PM EST) Glucometer, POC 121 65 - 199 mg/dL 10/04/2024 11:36 PM EST [facility] Comment:Supplemental ranges: <140 mg/dL before meals <180 mg/dL all other times of the day. Blood CAPILLARY BLOOD / Unknown 10/04/2024 11:36 PM EST 10/04/2024 11:36 PM EST Hayley Torres MD POINT OF CARE TEST O RDERABLES Performing Organization Address City/[facility] Co de Phone Number [facility] [place] [address] * POC, GLUCOSE (10/04/2024 7:32 PM EST) Glucometer, POC 163 65 - 199 mg/dL 10/04/2024 7:32 PM EST [facility] Comment:Supplemental ranges: <140 mg/dL before meals <180 mg/dL all other times of the day. Blood CAPILLARY BLOOD / Unknown 10/04/2024 7:32 PM EST 10/04/2024 7:32 PM EST Hayley Torres MD POINT OF CARE TEST O RDERABLES Performing Organization Address City/[facility]/ZIP Co de Phone Number [facility] [place] [address] * EKG 12 Lead (10/04/2024 7:14 PM EST) Ventricular rate 81 BPM MUSE SYSTEM Atrial Rate 81 BPM MUSE SYSTEM P-R Interval 174 ms MUSE SYSTEM QRS Duration 112 ms MUSE SYSTEM Q-T Interval 422 ms MUSE SYSTEM QTC Calculated (Bezet) 490 ms MUSE SYSTEM Calculated P Milton 34 degrees MUSE SYSTEM Calculated R [place] 11 degrees MUSE SYSTEM Calculated T Milton 59 degrees MUSE SYSTEM INTERPRETATION Normal sinus rhythm Cannot rule out Inferior infarct , age undetermined Nonspecific T wave abnormality Borderline ECG When compared with ECG of 29-MAY-2024 14:51, Nonspecific T wave abnormality now evident in Lateral leads Confirmed by MD Robert, Deandre Guadarrama ([id number]) on 10/05/2024 3:35:42 PM MUSE SYSTEM 10/04/2024 7:14 PM EST 10/05/2024 3:35 PM EST Hayley Torres MD ECG ORDERABLES Performing Organization Address [facility]/ZIP Co de Phone Number MUSE SYSTEM * POC, GLUCOSE (10/04/2024 5:07 PM EST) Glucometer, POC 95 65 - 199 mg/dL 10/04/2024 5:07 PM EST [facility] Comment:Supplemental ranges: <140 mg/dL before meals <180 mg/dL all other times of the day. Blood CAPILLARY BLOOD / Unknown 10/04/2024 5:07 PM EST 10/04/2024 5:07 PM EST Hayley Torres MD POINT OF CARE TEST O RDERABLES Performing Organization Address City/[facility]/ZIP Co de Phone Number [facility] [place] [address] * POC, GLUCOSE (10/04/2024 4:49 PM EST) Glucometer, POC 70 65 - 199 mg/dL 10/04/2024 4:50 PM EST [facility] Comment:Supplemental ranges: <140 mg/dL before meals <180 mg/dL all other times of the day. Blood CAPILLARY BLOOD / Unknown 10/04/2024 4:49 PM EST 10/04/2024 4:50 PM EST Hayley Torres MD POINT OF CARE TEST O GILDA Performing Organization Address City/[facility] Co de Phone Number [facility] [place] [address] * POC, GLUCOSE (10/04/2024 11:49 AM EST) Glucometer, POC 93 65 - 199 mg/dL 10/04/2024 11:49 AM EST [facility] Comment:Supplemental ranges: <140 mg/dL before meals <180 mg/dL all other times of the day. Blood CAPILLARY BLOOD / Unknown 10/04/2024 11:49 AM EST 10/04/2024 11:49 AM EST Hayley Torres MD POINT OF CARE TEST O GILDA Performing Organization Address [facility] de Phone Number [facility] [place] [address] * Vancomycin, trough (10/04/2024 7:53 AM EST) Pathologist [facility] Vancomycin, Trough 19.8 10.0 - 20.0 mg/L 10/04/2024 9:16 AM EST [facility] Comment: Varies according to infection source. Blood VENOUS BLOOD SPECIMEN / Unknown Venipuncture / Unknown 10/04/2024 7:53 AM EST 10/04/2024 8:11 AM EST Hayley Torres MD CHEMISTRY ORDERABLES Performing Organization Address City/[facility] Co de Phone Number [facility] [place] [address] * POC, GLUCOSE (10/04/2024 7:51 AM EST) Glucometer, POC 105 65 - 199 mg/dL 10/04/2024 7:52 AM EST [facility] Comment:Supplemental ranges: <140 mg/dL before meals <180 mg/dL all other times of the day. Blood CAPILLARY BLOOD / Unknown 10/04/2024 7:51 AM EST 10/04/2024 7:52 AM EST Hayley Torres MD POINT OF CARE TEST O GILDA Performing Organization Address City/[facility]/ZIP Co de Phone Number [facility] [place] [address] * POC, GLUCOSE (10/04/2024 3:53 AM EST) Glucometer, POC 90 65 - 199 mg/dL 10/04/2024 3:53 AM EST [facility] Comment:Supplemental ranges: <140 mg/dL before meals <180 mg/dL all other times of the day. Blood CAPILLARY BLOOD / Unknown 10/04/2024 3:53 AM EST 10/04/2024 3:53 AM EST Hayley Torres MD POINT OF CARE TEST O GILDA Performing Organization Address City/[facility]/ZIP Co de Phone Number [facility] [place] [address] * (ABNORMAL) CBC (with Diff) (10/04/2024 12:08 AM EST) [facility] White Blood Cell 12.58(H) 4.00 - 9.50 x10(3)/mc L 10/04/2024 12:51 AM EST [facility] Red Blood Cell 3.28(L) 4.58 - 5.54 x10(6)/mc L 10/04/2024 12:51 AM EST [facility] Hemoglobin 9.4(L) 13.7 - 16.5 g/dL 10/04/2024 12:51 AM EST [facility] Hematocrit 28.8(L) 40.5 - 48.5 % 10/04/2024 12:[address] [facility] Mean Cell Volume 87.8 82.9 - 93.1 fL 10/04/2024 12:[address] [facility] Mean Cell Hemoglobin 28.7 27.5 - 32.1 pg 10/04/2024 12:[address] [facility] Mean Cell Hemoglobin Concentration 32.6 32.0 - 35.7 g/dL 10/04/2024 12:[address] [facility] Platelet 670(H) 145 - 357 x10(3)/mc L 10/04/2024 12:[address] [facility] Mean Platelet Volume 9.1 7.6 - 12.9 fL 10/04/2024 12:[address] [facility] RDW Standard Deviation 44.8 36.0 - 45.0 fL 10/04/2024 12:[address] [facility] RDW coefficient of variation 13.9(H) 11.4 - 13.8 % 10/04/2024 12:[address] [facility] NRBC% auto 0.0 % 10/04/2024 12:[address] [facility] NRBC Absolute <0.01 <0.01 x10(3)/mc L 10/04/2024 12:[address] [facility] Neutrophil % 60.3 % 10/04/2024 12:[address] [facility] Neutrophil Absolute (ANC) - Automated 7.57(H) 1.70 - 6.10 x10(3)/mc L 10/04/2024 12:[address] [facility] Lymph % 27.4 % 10/04/2024 12:[address] [facility] Lymph Absolute 3.45(H) 0.90 - 3.20 x10(3)/mc L 10/04/2024 12:[address] [facility] Monocyte % 5.4 % 10/04/2024 12:[address] [facility] Monocyte Absolute 0.68 0.30 - 0.90 x10(3)/mc L 10/04/2024 12:[address] [facility] Eos % 1.5 % 10/04/2024 12:[address] [facility] Eos Absolute 0.19 0.00 - 0.40 x10(3)/mc L 10/04/2024 12:[address] [facility] Basophil % 0.6 % 10/04/2024 12:[address] [facility] Baso Absolute 0.08 0.00 - 0.10 x10(3)/mc L 10/04/2024 12:[address] [facility] Immature Gran % 4.8 % 12:[address] [facility] Immature Gran Absolute 0.61(H) 0.00 - 0.04 x10(3)/mc L 10/04/2024 12:[address] [facility] Blood VENOUS BLOOD SPECIMEN / Unknown Venipuncture / Unknown 10/04/2024 12:08 AM EST 10/04/2024 12:15 AM EST Hayley Torres MD HEMATOLOGY ORDERABLE S [facility] [place] [address] * (ABNORMAL) Basic Metabolic Panel (10/04/2024 12:08 AM EST) Glucose 135 65 - 199 mg/dL 10/04/2024 12:[address] [facility] Comment:Glucose Concentratio n >=200 mg/dL plus symptoms is consistent with Diabetes Mellitus. Blood Urea Nitrogen 19 10 - 20 mg/dL 10/04/2024 12:[address] [facility] Creatinine 0.56(L) 0.80 - 1.50 mg/dL 10/04/2024 12:[address] [facility] Sodium 138 135 - 145 mMol/L 10/04/2024 12:[address] [facility] Potassium 4.4 3.5 - 5.0 mMol/L 10/04/2024 12:[address] [facility] Chloride 105 98 - 107 mMol/L 10/04/2024 12:[address] [facility] Carbon Dioxide 24 22 - 31 mMol/L 10/04/2024 12:[address] [facility] Anion Gap 9 5 - 15 mMol/L 10/04/2024 12:[address] [facility] Calcium 8.7 8.5 - 10.5 mg/dL 10/04/2024 12:[address] [facility] Est Glomerular Filtration Rate - Male 120 mL/min/1. 73 m?? 10/04/2024 12:[address] [facility] Comment: [...] MD CHEMISTRY ORDERABLES [facility] [place] [address] * Phosphorus (10/04/2024 12:08 AM EST) Phosphorus 3.7 2.5 - 4.5 mg/dL 10/04/2024 12:[address] [facility] Blood VENOUS BLOOD SPECIMEN / Unknown Venipuncture / Unknown 10/04/2024 12:08 AM EST 10/04/2024 12:15 AM EST Hayley Torres MD CHEMISTRY ORDERABLES Performing Organization Address [facility] Co de Phone Number [facility] [place] [address] * Magnesium (10/04/2024 12:08 AM EST) Magnesium 0.89 0.69 - 1.07 mMol/L 10/04/2024 12:53 AM EST [facility] Blood VENOUS BLOOD SPECIMEN / Unknown Venipuncture / Unknown 10/04/2024 12:08 AM EST 10/04/2024 12:15 AM EST Hayley Torres MD CHEMISTRY ORDERABLES Performing Organization Address [facility] Co de Phone Number [facility] [place] [address] * POC, GLUCOSE (10/04/2024 12:01 AM EST) Glucometer, POC 132 65 - 199 mg/dL 10/04/2024 12:02 AM EST [facility] Comment:Supplemental ranges: <140 mg/dL before meals <180 mg/dL all other times of the day. Blood CAPILLARY BLOOD / Unknown 10/04/2024 12:01 AM EST 10/04/2024 12:02 AM EST Hayley Torres MD POINT OF CARE TEST O RDERABLES Performing Organization Address City/[facility]/ZIP Co de Phone Number [facility] [place] [address] * POC, GLUCOSE (10/03/2024 7:56 PM EST) Glucometer, POC 123 65 - 199 mg/dL 10/03/2024 7:56 PM EST [facility] Comment:Supplemental ranges: <140 mg/dL before meals <180 mg/dL all other times of the day. Blood CAPILLARY BLOOD / Unknown 10/03/2024 7:56 PM EST 10/03/2024 7:57 PM EST Hayley Torres MD POINT OF CARE TEST O GILDA Performing Organization Address [facility] Co de Phone Number [facility] [place] [address] * POC, GLUCOSE (10/03/2024 5:29 PM EST) Glucometer, POC 182 65 - 199 mg/dL 10/03/2024 5:30 PM EST [facility] Comment:Supplemental ranges: <140 mg/dL before meals <180 mg/dL all other times of the day. Blood CAPILLARY BLOOD / Unknown 10/03/2024 5:29 PM EST 10/03/2024 5:30 PM EST Hayley Torres MD POINT OF CARE TEST O GILDA Performing Organization Address [facility] Co de Phone Number [facility] [place] [address] * POC, GLUCOSE (10/03/2024 12:54 PM EST) Glucometer, POC 128 65 - 199 mg/dL 10/03/2024 12:54 PM EST [facility] Comment:Supplemental ranges: <140 mg/dL before meals <180 mg/dL all other times of the day. Blood CAPILLARY BLOOD / Unknown 10/03/2024 12:54 PM EST 10/03/2024 12:54 PM EST Hayley Torres MD POINT OF CARE TEST O GILDA Performing Organization Address City/[facility] Co de Phone Number [facility] [place] [address] * POC, GLUCOSE (10/03/2024 7:59 AM EST) Glucometer, POC 115 65 - 199 mg/dL 10/03/2024 7:59 AM EST [facility] Comment:Supplemental ranges: <140 mg/dL before meals <180 mg/dL all other times of the day. Blood CAPILLARY BLOOD / Unknown 10/03/2024 7:59 AM EST 10/03/2024 7:59 AM EST Hayley Torres MD POINT OF CARE TEST O GILDA [facility] [place] [address] * POC, GLUCOSE (10/03/2024 5:32 AM EST) Glucometer, POC 119 65 - 199 mg/dL 10/03/2024 5:32 AM EST [facility] Comment:Supplemental ranges: <140 mg/dL before meals <180 mg/dL all other times of the day. Blood CAPILLARY BLOOD / Unknown 10/03/2024 5:32 AM EST 10/03/2024 5:32 AM EST Hayley Torres MD POINT OF CARE TEST O GILDA Performing Organization Address City/[facility]/ZIP Co de Phone Number [facility] [place] [address] * POC, GLUCOSE (10/03/2024 4:16 AM EST) Glucometer, POC 152 65 - 199 mg/dL 10/03/2024 4:17 AM EST [facility] Comment:Supplemental ranges: <140 mg/dL before meals <180 mg/dL all other times of the day. Blood CAPILLARY BLOOD / Unknown 10/03/2024 4:16 AM EST 10/03/2024 4:17 AM EST Hayley Torres MD POINT OF CARE TEST O GILDA [facility] [place] [address] * (ABNORMAL) POC, GLUCOSE (10/03/2024 2:02 AM EST) Glucometer, POC 225(H) 65 - 199 mg/dL 10/03/2024 2:[address] [facility] Comment:Supplemental ranges: <140 mg/dL before meals <180 mg/dL all other times of the day. Blood CAPILLARY BLOOD / Unknown 10/03/2024 2:02 AM EST 10/03/2024 2:02 AM EST Hayley Torres MD POINT OF CARE TEST O RDERABLES [facility] [place] [address] * (ABNORMAL) CBC (with Diff) (10/03/2024 12:27 AM EST) [facility] White Blood Cell 15.33(H) 4.00 - 9.50 x10(3)/mc L 10/03/2024 12:[address] [facility] Red Blood Cell 3.59(L) 4.58 - 5.54 x10(6)/mc L 10/03/2024 12:[address] [facility] Hemoglobin 10.4(L) 13.7 - 16.5 g/dL 10/03/2024 12:[address] [facility] Hematocrit 31.2(L) 40.5 - 48.5 % 10/03/2024 12:[address] [facility] Mean Cell Volume 86.9 82.9 - 93.1 fL 10/03/2024 12:[address] [facility] Mean Cell Hemoglobin 29.0 27.5 - 32.1 pg 10/03/2024 12:[address] [facility] Mean Cell Hemoglobin Concentration 33.3 32.0 - 35.7 g/dL 10/03/2024 12:[address] [facility] Platelet 693(H) 145 - 357 x10(3)/mc L 10/03/2024 12:[address] [facility] Mean Platelet Volume 9.2 7.6 - 12.9 fL 10/03/2024 12:[address] [facility] RDW Standard Deviation 42.4 36.0 - 45.0 fL 10/03/2024 12:[address] [facility] RDW coefficient of variation 13.6 11.4 - 13.8 % 10/03/2024 12:[address] [facility] NRBC% auto 0.0 % 10/03/2024 12:[address] [facility] NRBC Absolute <0.01 <0.01 x10(3)/mc L 10/03/2024 12:[address] [facility] Neutrophil % 77.1 % 10/03/2024 12:[address] [facility] Neutrophil Absolute (ANC) - Automated 11.83(H) 1.70 - 6.10 x10(3)/mc L 10/03/2024 12:[address] [facility] Lymph % 13.4 % 10/03/2024 12:[address] [facility] Lymph Absolute 2.05 0.90 - 3.20 x10(3)/mc L 10/03/2024 12:[address] [facility] Monocyte % 2.9 % 10/03/2024 12:[address] [facility] Monocyte Absolute 0.45 0.30 - 0.90 x10(3)/mc L 10/03/2024 12:[address] [facility] Eos % 0.5 % 10/03/2024 12:[address] [facility] Eos Absolute 0.07 0.00 - 0.40 x10(3)/mc L 10/03/2024 12:[address] [facility] Basophil % 0.4 % 10/03/2024 12:[address] [facility] Baso Absolute 0.06 0.00 - 0.10 x10(3)/mc L 10/03/2024 12:[address] [facility] Immature Gran % 5.7 % 12:[address] [facility] Immature Gran Absolute 0.87(H) 0.00 - 0.04 x10(3)/mc L 10/03/2024 12:[address] [facility] Blood VENOUS BLOOD SPECIMEN / Unknown Venipuncture / Unknown 10/03/2024 12:27 AM EST 10/03/2024 12:47 AM EST Hayley Torres MD HEMATOLOGY ORDERABLE S [facility] [place] [address] * (ABNORMAL) Basic Metabolic Panel (10/03/2024 12:27 AM EST) Glucose 208(H) 65 - 199 mg/dL 10/03/2024 1:[address] [facility] Comment:Glucose Concentratio n >=200 mg/dL plus symptoms is consistent with Diabetes Mellitus. Blood Urea Nitrogen 15 10 - 20 mg/dL 10/03/2024 1:[address] [facility] Creatinine 0.51(L) 0.80 - 1.50 mg/dL 10/03/2024 1:[address] [facility] Sodium 136 135 - 145 mMol/L 10/03/2024 1:[address] [facility] Potassium 4.1 3.5 - 5.0 mMol/L 10/03/2024 1:[address] [facility] Chloride 103 98 - 107 mMol/L 10/03/2024 1:[address] [facility] Carbon Dioxide 20(L) 22 - 31 mMol/L 10/03/2024 1:[address] [facility] Anion Gap 13 5 - 15 mMol/L 10/03/2024 1:[address] [facility] Calcium 8.4(L) 8.5 - 10.5 mg/dL 10/03/2024 1:[address] [facility] Est Glomerular Filtration Rate - Male 124 mL/min/1. 73 m?? 10/03/2024 1:[address] [facility] Comment: [...] Torres MD CHEMISTRY ORDERABLES Performing Organization Address City/[facility]/ZIP Co de Phone Number [facility] [place] [address] * Phosphorus (10/03/2024 12:27 AM EST) Phosphorus 3.5 2.5 - 4.5 mg/dL 10/03/2024 1:14 AM EST [facility] Blood VENOUS BLOOD SPECIMEN / Unknown Venipuncture / Unknown 10/03/2024 12:27 AM EST 10/03/2024 12:47 AM EST Hayley Torres MD CHEMISTRY ORDERABLES [facility] [place] [address] * Magnesium (10/03/2024 12:27 AM EST) Magnesium 0.83 0.69 - 1.07 mMol/L 10/03/2024 1:14 AM EST [facility] Blood VENOUS BLOOD SPECIMEN / Unknown Venipuncture / Unknown 10/03/2024 12:27 AM EST 10/03/2024 12:47 AM EST Hayley Torres MD CHEMISTRY ORDERABLES Performing Organization Address [facility] Co de Phone Number [facility] [place] [address] * (ABNORMAL) POC, GLUCOSE (10/03/2024 12:13 AM EST) Glucometer, POC 255(H) 65 - 199 mg/dL 10/03/2024 12:14 AM EST [facility] Comment:Supplemental ranges: <140 mg/dL before meals <180 mg/dL all other times of the day. Blood CAPILLARY BLOOD / Unknown 10/03/2024 12:13 AM EST 10/03/2024 12:14 AM EST Hayley Torres MD POINT OF CARE TEST O RDERABLES Performing Organization Address [facility] Co de Phone Number [facility] [place] [address] * POC, GLUCOSE (10/02/2024 8:17 PM EST) Glucometer, POC 177 65 - 199 mg/dL 10/02/2024 8:17 PM EST [facility] Comment:Supplemental ranges: <140 mg/dL before meals <180 mg/dL all other times of the day. Blood CAPILLARY BLOOD / Unknown 10/02/2024 8:17 PM EST 10/02/2024 8:17 PM EST Hayley Torres MD POINT OF CARE TEST O GILDA Performing Organization Address [facility] Co de Phone Number [facility] [place] [address] * POC, GLUCOSE (10/02/2024 6:22 PM EST) Glucometer, POC 172 65 - 199 mg/dL 10/02/2024 6:22 PM EST [facility] Comment:Supplemental ranges: <140 mg/dL before meals <180 mg/dL all other times of the day. Blood CAPILLARY BLOOD / Unknown 10/02/2024 6:22 PM EST 10/02/2024 6:22 PM EST Hayley Torres MD POINT OF CARE TEST O GILDA Performing Organization Address City/[facility]/ZIP Co de Phone Number [facility] [place] [address] * POC, GLUCOSE (10/02/2024 5:01 PM EST) Glucometer, POC 104 65 - 199 mg/dL 10/02/2024 5:01 PM EST [facility] Comment:Supplemental ranges: <140 mg/dL before meals <180 mg/dL all other times of the day. Blood CAPILLARY BLOOD / Unknown 10/02/2024 5:01 PM EST 10/02/2024 5:01 PM EST Hayley Torres MD POINT OF CARE TEST O GILDA Performing Organization Address [facility] Co de Phone Number [facility] [place] [address] * POC, GLUCOSE (10/02/2024 3:05 PM EST) Glucometer, POC 113 65 - 199 mg/dL 10/02/2024 3:06 PM EST [facility] Comment:Supplemental ranges: <140 mg/dL before meals <180 mg/dL all other times of the day. Blood CAPILLARY BLOOD / Unknown 10/02/2024 3:05 PM EST 10/02/2024 3:06 PM EST Hayley Torres MD POINT OF CARE TEST O GILDA [facility] [place] [address] * POC, GLUCOSE (10/02/2024 11:12 AM EST) Glucometer, POC 146 65 - 199 mg/dL 10/02/2024 11:12 AM EST [facility] Comment:Supplemental ranges: <140 mg/dL before meals <180 mg/dL all other times of the day. Blood CAPILLARY BLOOD / Unknown 10/02/2024 11:12 AM EST 10/02/2024 11:12 AM EST Hayley Torres MD POINT OF CARE TEST O GILDA Performing Organization Address City/[facility]/ZIP Co de Phone Number [facility] [place] [address] * POC, GLUCOSE (10/02/2024 8:12 AM EST) Glucometer, POC 131 65 - 199 mg/dL 10/02/2024 8:12 AM EST [facility] Comment:Supplemental ranges: <140 mg/dL before meals <180 mg/dL all other times of the day. Blood CAPILLARY BLOOD / Unknown 10/02/2024 8:12 AM EST 10/02/2024 8:12 AM EST Hayley Torres MD POINT OF CARE TEST O GILDA Performing Organization Address [facility] Co de Phone Number [facility] [place] [address] * POC, GLUCOSE (10/02/2024 4:19 AM EST) Glucometer, POC 131 65 - 199 mg/dL 10/02/2024 4:19 AM EST [facility] Comment:Supplemental ranges: <140 mg/dL before meals <180 mg/dL all other times of the day. Blood CAPILLARY BLOOD / Unknown 10/02/2024 4:19 AM EST 10/02/2024 4:19 AM EST Hayley Torres MD POINT OF CARE TEST O GILDA Performing Organization Address City/[facility]/ZIP Co de Phone Number [facility] [place] [address] * Phosphorus (10/02/2024 12:41 AM EST) Phosphorus 4.1 2.5 - 4.5 mg/dL 10/02/2024 1:21 AM EST [facility] Blood VENOUS BLOOD SPECIMEN / Unknown Venipuncture / Unknown 10/02/2024 12:41 AM EST 10/02/2024 12:45 AM EST Halyey Torres MD CHEMISTRY ORDERABLES Performing Organization Address [facility] Co de Phone Number [facility] [place] [address] * Magnesium (10/02/2024 12:41 AM EST) Pathologist [facility] Magnesium 0.85 0.69 - 1.07 mMol/L 10/02/2024 1:[address] [facility] Blood VENOUS BLOOD SPECIMEN / Unknown Venipuncture / Unknown 10/02/2024 12:41 AM EST 10/02/2024 12:45 AM EST Hayley Torres MD CHEMISTRY ORDERABLES Performing Organization Address City/[facility] Co de Phone Number [facility] [place] [address] * (ABNORMAL) Basic Metabolic Panel (10/02/2024 12:41 AM EST) Pathologist [facility] Glucose 113 65 - 199 mg/dL 10/02/2024 1:[address] [facility] Comment:Glucose Concentratio n >=200 mg/dL plus symptoms is consistent with Diabetes Mellitus. Blood Urea Nitrogen 11 10 - 20 mg/dL 10/02/2024 1:[address] [facility] Creatinine 0.49(L) 0.80 - 1.50 mg/dL 10/02/2024 1:[address] [facility] Sodium 138 135 - 145 mMol/L 10/02/2024 1:[address] [facility] Potassium 3.9 3.5 - 5.0 mMol/L 10/02/2024 1:[address] [facility] Chloride 105 98 - 107 mMol/L 10/02/2024 1:[address] [facility] Carbon Dioxide 23 22 - 31 mMol/L 10/02/2024 1:[address] [facility] Anion Gap 10 5 - 15 mMol/L 10/02/2024 1:[address] [facility] Calcium 8.2(L) 8.5 - 10.5 mg/dL 10/02/2024 1:[address] [facility] Est Glomerular Filtration Rate - Male 125 mL/min/1. 73 m?? 10/02/2024 1:[address] [facility] Comment: [...] MD CHEMISTRY ORDERABLES [facility] [place] [address] * (ABNORMAL) CBC (with Diff) (10/02/2024 12:41 AM EST) White Blood Cell 10.93(H) 4.00 - 9.50 x10(3)/mc L 10/02/2024 1:[address] [facility] Red Blood Cell 3.30(L) 4.58 - 5.54 x10(6)/mc L 10/02/2024 1:[address] [facility] Hemoglobin 9.6(L) 13.7 - 16.5 g/dL 10/02/2024 1:[address] [facility] Hematocrit 28.6(L) 40.5 - 48.5 % 10/02/2024 1:[address] [facility] Mean Cell Volume 86.7 82.9 - 93.1 fL 10/02/2024 1:[address] [facility] Mean Cell Hemoglobin 29.1 27.5 - 32.1 pg 10/02/2024 1:[address] [facility] Mean Cell Hemoglobin Concentration 33.6 32.0 - 35.7 g/dL 10/02/2024 1:[address] [facility] Platelet 546(H) 145 - 357 x10(3)/mc L 10/02/2024 1:[address] [facility] Mean Platelet Volume 9.0 7.6 - 12.9 fL 10/02/2024 1:[address] [facility] RDW Standard Deviation 42.7 36.0 - 45.0 fL 10/02/2024 1:[address] [facility] RDW coefficient of variation 13.3 11.4 - 13.8 % 10/02/2024 1:[address] [facility] NRBC% auto 0.0 % 10/02/2024 1:[address] [facility] NRBC Absolute <0.01 <0.01 x10(3)/mc L 10/02/2024 1:[address] [facility] Neutrophil % 58.4 % 10/02/2024 1:[address] [facility] Neutrophil Absolute (ANC) - Automated 6.38(H) 1.70 - 6.10 x10(3)/mc L 10/02/2024 1:[address] [facility] Lymph % 23.9 % 10/02/2024 1:[address] [facility] Lymph Absolute 2.61 0.90 - 3.20 x10(3)/mc L 10/02/2024 1:[address] [facility] Monocyte % 5.6 % 10/02/2024 1:04 AM EST [facility] Monocyte Absolute 0.61 0.30 - 0.90 x10(3)/mc L 10/02/2024 1:[address] [facility] Eos % 1.6 % 10/02/2024 1:[address] [facility] Eos Absolute 0.18 0.00 - 0.40 x10(3)/mc L 10/02/2024 1:04 AM EST [facility] Basophil % 0.8 % 10/02/2024 1:[address] [facility] Baso Absolute 0.09 0.00 - 0.10 x10(3)/mc L 10/02/2024 1:[address] [facility] Immature Gran % 9.7 % 1:[address] [facility] Immature Gran Absolute 1.06(H) 0.00 - 0.04 x10(3)/mc L 10/02/2024 1:[address] [facility] Blood VENOUS BLOOD SPECIMEN / Unknown Venipuncture / Unknown 10/02/2024 12:41 AM EST 10/02/2024 12:45 AM EST Hayley Torres MD HEMATOLOGY ORDERABLE S [facility] [place] [address] * POC, GLUCOSE (10/02/2024 12:40 AM EST) Glucometer, POC 116 65 - 199 mg/dL 10/02/2024 12:41 AM EST [facility] Comment:Supplemental ranges: <140 mg/dL before meals <180 mg/dL all other times of the day. Blood CAPILLARY BLOOD / Unknown 10/02/2024 12:40 AM EST 10/02/2024 12:41 AM EST Hayley Torres MD POINT OF CARE TEST O RDERABLES [facility] [place] [address] * POC, GLUCOSE (10/01/2024 8:11 PM EST) Glucometer, POC 123 65 - 199 mg/dL 10/01/2024 8:11 PM EST [facility] Comment:Supplemental ranges: <140 mg/dL before meals <180 mg/dL all other times of the day. Blood CAPILLARY BLOOD / Unknown 10/01/2024 8:11 PM EST 10/01/2024 8:11 PM EST Hayley Torres MD POINT OF CARE TEST O GILDA Performing Organization Address City/[facility]/ZIP Co de Phone Number [facility] [place] [address] * POC, GLUCOSE (10/01/2024 6:00 PM EST) Glucometer, POC 112 65 - 199 mg/dL 10/01/2024 6:00 PM EST [facility] Comment:Supplemental ranges: <140 mg/dL before meals <180 mg/dL all other times of the day. Blood CAPILLARY BLOOD / Unknown 10/01/2024 6:00 PM EST 10/01/2024 6:00 PM EST Hayley Torres MD POINT OF CARE TEST O GILDA Performing Organization Address City/[facility]/ZIP Co de Phone Number [facility] [place] [address] * POC, GLUCOSE (10/01/2024 3:53 PM EST) Glucometer, POC 97 65 - 199 mg/dL 10/01/2024 3:53 PM EST [facility] Comment:Supplemental ranges: <140 mg/dL before meals <180 mg/dL all other times of the day. Blood CAPILLARY BLOOD / Unknown 10/01/2024 3:53 PM EST 10/01/2024 3:53 PM EST Hayley Torres MD POINT OF CARE TEST O RDERABLES Performing Organization Address City/[facility]/ZIP Co de Phone Number [facility] [place] [address] * POC, GLUCOSE (10/01/2024 2:25 PM EST) Glucometer, POC 117 65 - 199 mg/dL 10/01/2024 2:25 PM EST [facility] Comment:Supplemental ranges: <140 mg/dL before meals <180 mg/dL all other times of the day. Blood CAPILLARY BLOOD / Unknown 10/01/2024 2:25 PM EST 10/01/2024 2:25 PM EST Hayley Torres MD POINT OF CARE TEST O GILDA Performing Organization Address [facility] Co de Phone Number [facility] [place] [address] * POC, GLUCOSE (10/01/2024 11:43 AM EST) Glucometer, POC 174 65 - 199 mg/dL 10/01/2024 11:43 AM EST [facility] Comment:Supplemental ranges: <140 mg/dL before meals <180 mg/dL all other times of the day. Blood CAPILLARY BLOOD / Unknown 10/01/2024 11:43 AM EST 10/01/2024 11:43 AM EST Hayley Torres MD POINT OF CARE TEST O GILDA Performing Organization Address City/[facility]/ZIP Co de Phone Number [facility] [place] [address] * POC, GLUCOSE (10/01/2024 9:43 AM EST) Glucometer, POC 191 65 - 199 mg/dL 10/01/2024 9:43 AM EST [facility] Comment:Supplemental ranges: <140 mg/dL before meals <180 mg/dL all other times of the day. Blood CAPILLARY BLOOD / Unknown 10/01/2024 9:43 AM EST 10/01/2024 9:43 AM EST Hayley Torres MD POINT OF CARE TEST O GILDA Performing Organization Address [facility] Co de Phone Number [facility] [place] [address] * POC, GLUCOSE (10/01/2024 7:48 AM EST) Glucometer, POC 151 65 - 199 mg/dL 10/01/2024 7:48 AM EST [facility] Comment:Supplemental ranges: <140 mg/dL before meals <180 mg/dL all other times of the day. Blood CAPILLARY BLOOD / Unknown 10/01/2024 7:48 AM EST 10/01/2024 7:48 AM EST Hayley Torres MD POINT OF CARE TEST O GILDA Performing Organization Address [facility] Co de Phone Number [facility] [place] [address] * POC, GLUCOSE (10/01/2024 4:25 AM EST) Glucometer, POC 133 65 - 199 mg/dL 10/01/2024 4:26 AM EST [facility] Comment:Supplemental ranges: <140 mg/dL before meals <180 mg/dL all other times of the day. Blood CAPILLARY BLOOD / Unknown 10/01/2024 4:25 AM EST 10/01/2024 4:26 AM EST Hayley Torres MD POINT OF CARE TEST O GILDA Performing Organization Address City/[facility] Co de Phone Number [facility] [place] [address] * Phosphorus (10/01/2024 2:02 AM EST) Phosphorus 3.9 2.5 - 4.5 mg/dL 10/01/2024 7:16 AM EST [facility] Blood VENOUS BLOOD SPECIMEN / Unknown Venipuncture / Unknown 10/01/2024 2:02 AM EST 10/01/2024 2:10 AM EST Hayley Torres MD CHEMISTRY ORDERABLES Performing Organization Address [facility] Co de Phone Number [facility] [place] [address] * (ABNORMAL) Scan, Peripheral Blood (10/01/2024 2:02 [...] MD HEMATOLOGY ORDERABLE S Performing Organization Address [facility] Co nv Phone Number [facility] [place] [address] * Magnesium (10/01/2024 2:02 AM EST) Magnesium 0.79 0.69 - 1.07 mMol/L 10/01/2024 2:41 AM EST [facility] Blood VENOUS BLOOD SPECIMEN / Unknown Venipuncture / Unknown 10/01/2024 2:02 AM EST 10/01/2024 2:10 AM EST Hayley Torres MD CHEMISTRY ORDERABLES Performing Organization Address [facility] Co de Phone Number [facility] [place] [address] * (ABNORMAL) Basic Metabolic Panel (10/01/2024 2:02 AM EST) Pathologist [facility] Glucose 122 65 - 199 mg/dL 10/01/2024 2:[address] [facility] Comment:Glucose Concentratio n >=200 mg/dL plus symptoms is consistent with Diabetes Mellitus. Blood Urea Nitrogen 10 10 - 20 mg/dL 10/01/2024 2:[address] [facility] Creatinine 0.47(L) 0.80 - 1.50 mg/dL 10/01/2024 2:[address] [facility] Sodium 138 135 - 145 mMol/L 10/01/2024 2:[address] [facility] Potassium 3.9 3.5 - 5.0 mMol/L 10/01/2024 2:[address] [facility] Chloride 105 98 - 107 mMol/L 10/01/2024 2:[address] [facility] Carbon Dioxide 24 22 - 31 mMol/L 10/01/2024 2:[address] [facility] Anion Gap 9 5 - 15 mMol/L 10/01/2024 2:[address] [facility] Calcium 8.1(L) 8.5 - 10.5 mg/dL 10/01/2024 2:[address] [facility] Est Glomerular Filtration Rate - Male 127 mL/min/1. 73 m?? 10/01/2024 2:[address] [facility] Comment: [...] MD CHEMISTRY ORDERABLES [facility] [place] [address] * (ABNORMAL) CBC (with Diff) (10/01/2024 2:02 AM EST) White Blood Cell 10.15(H) 4.00 - 9.50 x10(3)/mc L 10/01/2024 2:[address] [facility] Red Blood Cell 3.14(L) 4.58 - 5.54 x10(6)/mc L 10/01/2024 2:[address] [facility] Hemoglobin 9.1(L) 13.7 - 16.5 g/dL 10/01/2024 2:[address] [facility] Hematocrit 26.9(L) 40.5 - 48.5 % 10/01/2024 2:[address] [facility] Mean Cell Volume 85.7 82.9 - 93.1 fL 10/01/2024 2:[address] [facility] Mean Cell Hemoglobin 29.0 27.5 - 32.1 pg 10/01/2024 2:[address] [facility] Mean Cell Hemoglobin Concentration 33.8 32.0 - 35.7 g/dL 10/01/2024 2:[address] [facility] Platelet 444(H) 145 - 357 x10(3)/mc L 10/01/2024 2:[address] [facility] Mean Platelet Volume 8.9 7.6 - 12.9 fL 10/01/2024 2:[address] [facility] RDW Standard Deviation 41.2 36.0 - 45.0 fL 10/01/2024 2:[address] [facility] RDW coefficient of variation 13.2 11.4 - 13.8 % 10/01/2024 2:[address] [facility] NRBC% auto 0.0 % 10/01/2024 2:[address] [facility] NRBC Absolute <0.01 <0.01 x10(3)/mc L 10/01/2024 2:[address] [facility] Neutrophil % 59.5 % 10/01/2024 2:[address] [facility] Comment:This is an appended report. These results have been appended to a previously preliminary verified report. Neutrophil Absolute (ANC) - Automated 6.05 1.70 - 6.10 x10(3)/mc L 10/01/2024 2:[address] [facility] Comment:This is an appended report. These results have been appended to a previously preliminary verified report. Lymph % 22.3 % 10/01/2024 2:[address] [facility] Comment:This is an appended report. These results have been appended to a previously preliminary verified report. Lymph Absolute 2.26 0.90 - 3.20 x10(3)/mc L 10/01/2024 2:[address] [facility] Comment:This is an appended report. These results have been appended to a previously preliminary verified report. Monocyte % 7.4 % 10/01/2024 2:[address] [facility] Comment:This is an appended report. These results have been appended to a previously preliminary verified report. Monocyte Absolute 0.75 0.30 - 0.90 x10(3)/mc L 10/01/2024 2:[address] [facility] Comment:This is an appended report. These results have been appended to a previously preliminary verified report. Eos % 1.8 % 10/01/2024 2:[address] [facility] Comment:This is an appended report. These results have been appended to a previously preliminary verified report. Eos Absolute 0.18 0.00 - 0.40 x10(3)/mc L 10/01/2024 2:[address] [facility] Comment:This is an appended report. These results have been appended to a previously preliminary verified report. Basophil % 0.6 % 10/01/2024 2:55 AM EST [facility] Comment:This is an appended report. These results have been appended to a previously preliminary verified report. Baso Absolute 0.06 0.00 - 0.10 x10(3)/mc L 10/01/2024 2:55 AM EST [facility] Comment:This is an appended report. These results have been appended to a previously preliminary verified report. Immature Gran % 8.4 % 2:55 AM EST [facility] Comment:This is an appended report. These results have been appended to a previously preliminary verified report. Immature Gran Absolute 0.85(H) 0.00 - 0.04 x10(3)/mc L 10/01/2024 2:55 AM EST [facility] Comment:This is an appended report. These results have been appended to a previously preliminary verified report. Blood VENOUS BLOOD SPECIMEN / Unknown Venipuncture / Unknown 10/01/2024 2:02 AM EST 10/01/2024 2:10 AM EST Hayley Torres MD HEMATOLOGY ORDERABLE S [facility] [place] [address] * POC, GLUCOSE (10/01/2024 12:32 AM EST) Glucometer, POC 179 65 - 199 mg/dL 10/01/2024 12:32 AM EST [facility] Comment:Supplemental ranges: <140 mg/dL before meals <180 mg/dL all other times of the day. Blood CAPILLARY BLOOD / Unknown 10/01/2024 12:32 AM EST 10/01/2024 12:32 AM EST Hayley Torres MD POINT OF CARE TEST O RDERABLES [facility] [place] [address] * POC, GLUCOSE (09/30/2024 7:37 PM EST) Glucometer, POC 140 65 - 199 mg/dL 09/30/2024 7:38 PM EST [facility] Comment:Supplemental ranges: <140 mg/dL before meals <180 mg/dL all other times of the day. Blood CAPILLARY BLOOD / Unknown 09/30/2024 7:37 PM EST 09/30/2024 7:38 PM EST Hayley Torres MD POINT OF CARE TEST O GILDA Performing Organization Address City/[facility]/ZIP Co de Phone Number [facility] [place] [address] * POC, GLUCOSE (09/30/2024 4:29 PM EST) Glucometer, POC 126 65 - 199 mg/dL 09/30/2024 4:30 PM EST [facility] Comment:Supplemental ranges: <140 mg/dL before meals <180 mg/dL all other times of the day. Blood CAPILLARY BLOOD / Unknown 09/30/2024 4:29 PM EST 09/30/2024 4:30 PM EST Hayley Torres MD POINT OF CARE TEST O GILDA Performing Organization Address City/[facility]/ZIP Co de Phone Number [facility] [place] [address] * POC, GLUCOSE (09/30/2024 12:16 PM EST) Glucometer, POC 107 65 - 199 mg/dL 09/30/2024 12:16 PM EST [facility] Comment:Supplemental ranges: <140 mg/dL before meals <180 mg/dL all other times of the day. Blood CAPILLARY BLOOD / Unknown 09/30/2024 12:16 PM EST 09/30/2024 12:16 PM EST Hayley Torres MD POINT OF CARE TEST O GILDA [facility] [place] [address] * POC, GLUCOSE (09/30/2024 7:58 AM EST) Glucometer, POC 92 65 - 199 mg/dL 09/30/2024 7:58 AM EST [facility] Comment:Supplemental ranges: <140 mg/dL before meals <180 mg/dL all other times of the day. Blood CAPILLARY BLOOD / Unknown 09/30/2024 7:58 AM EST 09/30/2024 7:58 AM EST Hayley Torres MD POINT OF CARE TEST O RDERABLES [facility] [place] [address] * Potassium (09/30/2024 6:27 AM EST) Potassium 3.9 3.5 - 5.0 mMol/L 09/30/2024 7:10 AM EST [facility] Blood VENOUS BLOOD SPECIMEN / Unknown Venipuncture / Unknown 09/30/2024 6:27 AM EST 09/30/2024 6:35 AM EST Hayley Torres MD CHEMISTRY ORDERABLES Performing Organization Address City/[facility]/ZIP Co de Phone Number [facility] [place] [address] * Vancomycin, trough (09/30/2024 6:27 AM EST) Vancomycin, Trough 14.1 10.0 - 20.0 mg/L 09/30/2024 7:10 AM EST [facility] Comment: Varies according to infection source. Blood VENOUS BLOOD SPECIMEN / Unknown Venipuncture / Unknown 09/30/2024 6:27 AM EST 09/30/2024 6:35 AM EST Hayley Torres MD CHEMISTRY ORDERABLES [facility] [place] [address] * POC, GLUCOSE (09/30/2024 3:51 AM EST) Glucometer, POC 134 65 - 199 mg/dL 09/30/2024 3:51 AM EST [facility] Comment:Supplemental ranges: <140 mg/dL before meals <180 mg/dL all other times of the day. Blood CAPILLARY BLOOD / Unknown 09/30/2024 3:51 AM EST 09/30/2024 3:51 AM EST Hayley Torres MD POINT OF CARE TEST O RDERABLES [facility] [place] [address] * Magnesium (09/29/2024 11:52 PM EST) Magnesium 0.85 0.69 - 1.07 mMol/L 09/30/2024 12:25 AM EST [facility] Blood VENOUS BLOOD SPECIMEN / Unknown Venipuncture / Unknown 09/29/2024 11:52 PM EST 09/29/2024 11:58 PM EST Hayley Torres MD CHEMISTRY ORDERABLES [facility] [place] [address] * (ABNORMAL) Basic Metabolic Panel (09/29/2024 11:52 PM EST) Glucose 133 65 - 199 mg/dL 09/30/2024 12:51 AM EST [facility] Comment:Glucose Concentratio n >=200 mg/dL plus symptoms is consistent with Diabetes Mellitus. Blood Urea Nitrogen 9(L) 10 - 20 mg/dL 09/30/2024 12:51 AM EST [facility] Creatinine 0.48(L) 0.80 - 1.50 mg/dL 09/30/2024 12:51 AM EST [facility] Sodium 138 135 - 145 mMol/L 09/30/2024 12:[address] [facility] Potassium 3.4(L) 3.5 - 5.0 mMol/L 09/30/2024 12:[address] [facility] Chloride 103 98 - 107 mMol/L 09/30/2024 12:[address] [facility] Carbon Dioxide 24 22 - 31 mMol/L 09/30/2024 12:[address] [facility] Anion Gap 11 5 - 15 mMol/L 09/30/2024 12:[address] [facility] Calcium 8.1(L) 8.5 - 10.5 mg/dL 09/30/2024 12:[address] [facility] Est Glomerular Filtration Rate - Male 126 mL/min/1. 73 m?? 09/30/2024 12:[address] [facility] Comment: [...] MD CHEMISTRY ORDERABLES [facility] [place] [address] * (ABNORMAL) CBC (with Diff) (09/29/2024 11:52 PM EST) White Blood Cell 9.54(H) 4.00 - 9.50 x10(3)/mc L 09/30/2024 12:[address] [facility] Red Blood Cell 3.04(L) 4.58 - 5.54 x10(6)/mc L 09/30/2024 12:[address] [facility] Hemoglobin 8.7(L) 13.7 - 16.5 g/dL 09/30/2024 12:[address] [facility] Hematocrit 25.8(L) 40.5 - 48.5 % 09/30/2024 12:[address] [facility] Mean Cell Volume 84.9 82.9 - 93.1 fL 09/30/2024 12:[address] [facility] Mean Cell Hemoglobin 28.6 27.5 - 32.1 pg 09/30/2024 12:[address] [facility] Mean Cell Hemoglobin Concentration 33.7 32.0 - 35.7 g/dL 09/30/2024 12:[address] [facility] Platelet 411(H) 145 - 357 x10(3)/mc L 09/30/2024 12:[address] [facility] Mean Platelet Volume 8.8 7.6 - 12.9 fL 09/30/2024 12:[address] [facility] RDW Standard Deviation 41.4 36.0 - 45.0 fL 09/30/2024 12:[address] [facility] RDW coefficient of variation 13.4 11.4 - 13.8 % 09/30/2024 12:[address] [facility] NRBC% auto 0.0 % 09/30/2024 12:[address] [facility] NRBC Absolute <0.01 <0.01 x10(3)/mc L 09/30/2024 12:[address] [facility] Neutrophil % 64.5 % 09/30/2024 12:[address] [facility] Neutrophil Absolute (ANC) - Automated 6.16(H) 1.70 - 6.10 x10(3)/mc L 09/30/2024 12:[address] [facility] Lymph % 23.1 % 09/30/2024 12:[address] [facility] Lymph Absolute 2.20 0.90 - 3.20 x10(3)/mc L 09/30/2024 12:[address] [facility] Monocyte % 8.0 % 09/30/2024 12:[address] [facility] Monocyte Absolute 0.76 0.30 - 0.90 x10(3)/mc L 09/30/2024 12:[address] [facility] Eos % 1.5 % 09/30/2024 12:[address] [facility] Eos Absolute 0.14 0.00 - 0.40 x10(3)/mc L 09/30/2024 12:[address] [facility] Basophil % 0.3 % 09/30/2024 12:[address] [facility] Baso Absolute <0.04 0.00 - 0.10 x10(3)/mc L 09/30/2024 12:[address] [facility] Immature Gran % 2.6 % 12:[address] [facility] Immature Gran Absolute 0.25(H) 0.00 - 0.04 x10(3)/mc L 09/30/2024 12:[address] [facility] Blood VENOUS BLOOD SPECIMEN / Unknown Venipuncture / Unknown 09/29/2024 11:52 PM EST 09/29/2024 11:58 PM EST Hayley Torres MD HEMATOLOGY ORDERABLE S [facility] [place] [address] * POC, GLUCOSE (09/29/2024 11:51 PM EST) [facility] Signature Glucometer, POC 134 65 - 199 mg/dL 09/29/2024 11:[address] [facility] Comment:Supplemental ranges: <140 mg/dL before meals <180 mg/dL all other times of the day. Blood CAPILLARY BLOOD / Unknown 09/29/2024 11:51 PM EST 09/29/2024 11:51 PM EST Hayley Torres MD POINT OF CARE TEST O RDERABLES Performing Organization Address [facility] Co de Phone Number [facility] [place] [address] * Blood culture (09/29/2024 9:24 PM EST) Blood Culture No growth at 120 hours 10/04/2024 11:01 PM EST [facility] Blood VENOUS BLOOD SPECIMEN / Unknown Venipuncture / Unknown 09/29/2024 9:24 PM EST 09/29/2024 9:34 PM EST Hayley Torres MD MICROBIOLOGY - BLOOD ORDERABLES Performing Organization Address [facility] Co de Phone Number [facility] [place] [address] * Blood culture (09/29/2024 9:24 PM EST) Blood Culture No growth at 120 hours 10/04/2024 11:01 PM EST [facility] Blood VENOUS BLOOD SPECIMEN / Unknown Venipuncture / Unknown 09/29/2024 9:24 PM EST 09/29/2024 9:34 PM EST Marko Dickson MD MICROBIOLOGY - BLOOD ORDERABLES Performing Organization Address [facility] Co de Phone Number [facility] [place] [address] * (ABNORMAL) POC, GLUCOSE (09/29/2024 7:35 PM EST) Glucometer, POC 202(H) 65 - 199 mg/dL 09/29/2024 7:36 PM EST [facility] Comment:Supplemental ranges: <140 mg/dL before meals <180 mg/dL all other times of the day. Blood CAPILLARY BLOOD / Unknown 09/29/2024 7:35 PM EST 09/29/2024 7:36 PM EST Hayley Torres MD POINT OF CARE TEST O GILDA Performing Organization Address [facility] Co de Phone Number [facility] [place] [address] * POC, GLUCOSE (09/29/2024 6:48 PM EST) Glucometer, POC 161 65 - 199 mg/dL 09/29/2024 6:48 PM EST [facility] Comment:Supplemental ranges: <140 mg/dL before meals <180 mg/dL all other times of the day. Blood CAPILLARY BLOOD / Unknown 09/29/2024 6:48 PM EST 09/29/2024 6:49 PM EST Hayley Torres MD POINT OF CARE TEST O GILDA Performing Organization Address [facility] Co de Phone Number [facility] [place] [address] * POC, GLUCOSE (09/29/2024 4:06 PM EST) Glucometer, POC 122 65 - 199 mg/dL 09/29/2024 4:06 PM EST [facility] Comment:Supplemental ranges: <140 mg/dL before meals <180 mg/dL all other times of the day. Blood CAPILLARY BLOOD / Unknown 09/29/2024 4:06 PM EST 09/29/2024 4:06 PM EST Hayley Torres MD POINT OF CARE TEST O GILDA Performing Organization Address [facility] Co de Phone Number [facility] [place] [address] * POC, GLUCOSE (09/29/2024 11:49 AM EST) Glucometer, POC 135 65 - 199 mg/dL 09/29/2024 11:49 AM EST [facility] Comment:Supplemental ranges: <140 mg/dL before meals <180 mg/dL all other times of the day. Blood CAPILLARY BLOOD / Unknown 09/29/2024 11:49 AM EST 09/29/2024 11:50 AM EST Hayley Torres MD POINT OF CARE TEST O RDERABLES [facility] [place] [address] * (ABNORMAL) POC, GLUCOSE (09/29/2024 7:53 AM EST) Glucometer, POC 202(H) 65 - 199 mg/dL 09/29/2024 7:53 AM EST [facility] Comment:Supplemental ranges: <140 mg/dL before meals <180 mg/dL all other times of the day. Blood CAPILLARY BLOOD / Unknown 09/29/2024 7:53 AM EST 09/29/2024 7:53 AM EST Hayley Torres MD POINT OF CARE TEST O RDERABLES [facility] [place] [address] * POC, GLUCOSE (09/29/2024 3:45 AM EST) Glucometer, POC 184 65 - 199 mg/dL 09/29/2024 3:46 AM EST [facility] Comment:Supplemental ranges: <140 mg/dL before meals <180 mg/dL all other times of the day. Blood CAPILLARY BLOOD / Unknown 09/29/2024 3:45 AM EST 09/29/2024 3:46 AM EST Hayley oTrres MD POINT OF CARE TEST O RDERABLES [facility] [place] [address] * (ABNORMAL) Hemoglobin A1c (09/28/2024 11:51 PM EST) [facility] Hemoglobin A1c 9.7(H) 4.3 - 5.6 % 09/29/2024 9:[address] [facility] Comment: Per ADA guidelines, without [...] red blood cell turnover may not be technical account representative of glycemic control. Reference Interval: 4.3 - 5.6% 5.7 - 6.4%: Consistent with prediabetes >=6.5%: Consistent with diagnosis of diabetes mellitus Estimated Average Glucose 232 mg/dL 09/29/2024 9:[address] [facility] Blood VENOUS BLOOD SPECIMEN / Unknown Venipuncture / Unknown 09/28/2024 11:51 PM EST 09/28/2024 11:56 PM EST Hayley Torres MD CHEMISTRY ORDERABLES [facility] [place] [address] * Magnesium (09/28/2024 11:51 PM EST) [facility] Magnesium 0.72 0.69 - 1.07 mMol/L 09/29/2024 12:[address] [facility] Blood VENOUS BLOOD SPECIMEN / Unknown Venipuncture / Unknown 09/28/2024 11:51 PM EST 09/28/2024 11:57 PM EST Hayley Torres MD CHEMISTRY ORDERABLES [facility] [place] [address] * (ABNORMAL) Basic Metabolic Panel (09/28/2024 11:51 PM EST) Glucose 204(H) 65 - 199 mg/dL 09/29/2024 12:[address] [facility] Comment:Glucose Concentratio n >=200 mg/dL plus symptoms is consistent with Diabetes Mellitus. Blood Urea Nitrogen 6(L) 10 - 20 mg/dL 09/29/2024 12:[address] [facility] Creatinine 0.52(L) 0.80 - 1.50 mg/dL 09/29/2024 12:[address] [facility] Sodium 137 135 - 145 mMol/L 09/29/2024 12:[address] [facility] Potassium 3.2(L) 3.5 - 5.0 mMol/L 09/29/2024 12:[address] [facility] Chloride 105 98 - 107 mMol/L 09/29/2024 12:[address] [facility] Carbon Dioxide 21(L) 22 - 31 mMol/L 09/29/2024 12:[address] [facility] Anion Gap 11 5 - 15 mMol/L 09/29/2024 12:[address] [facility] Calcium 6.7(LLL) 8.5 - 10.5 mg/dL 09/29/2024 12:[address] [facility] Est Glomerular Filtration Rate - Male 123 mL/min/1. 73 m?? 09/29/2024 12:[address] [facility] Comment: [...] MD CHEMISTRY ORDERABLES [facility] [place] [address] * (ABNORMAL) CBC (with Diff) (09/28/2024 11:51 PM EST) White Blood Cell 12.76(H) 4.00 - 9.50 x10(3)/mc L 09/29/2024 12:[address] [facility] Red Blood Cell 2.90(L) 4.58 - 5.54 x10(6)/mc L 09/29/2024 12:[address] [facility] Hemoglobin 8.5(L) 13.7 - 16.5 g/dL 09/29/2024 12:[address] [facility] Hematocrit 24.7(L) 40.5 - 48.5 % 09/29/2024 12:[address] [facility] Mean Cell Volume 85.2 82.9 - 93.1 fL 09/29/2024 12:[address] [facility] Mean Cell Hemoglobin 29.3 27.5 - 32.1 pg 09/29/2024 12:[address] [facility] Mean Cell Hemoglobin Concentration 34.4 32.0 - 35.7 g/dL 09/29/2024 12:[address] [facility] Platelet 331 145 - 357 x10(3)/mc L 09/29/2024 12:[address] [facility] Mean Platelet Volume 9.2 7.6 - 12.9 fL 09/29/2024 12:[address] [facility] RDW Standard Deviation 40.4 36.0 - 45.0 fL 09/29/2024 12:[address] [facility] RDW coefficient of variation 13.1 11.4 - 13.8 % 09/29/2024 12:[address] [facility] NRBC% auto 0.0 % 09/29/2024 12:[address] [facility] NRBC Absolute <0.01 <0.01 x10(3)/mc L 09/29/2024 12:[address] [facility] Neutrophil % 86.7 % 09/29/2024 12:00 AM [facility] Neutrophil Absolute (ANC) - Automated 11.06(H) 1.70 - 6.10 x10(3)/mc L 09/29/2024 12:[address] [facility] Lymph % 7.7 % 09/29/2024 12:[address] [facility] Lymph Absolute 0.98 0.90 - 3.20 x10(3)/mc L 09/29/2024 12:[address] [facility] Monocyte % 4.0 % 09/29/2024 12:[address] [facility] Monocyte Absolute 0.51 0.30 - 0.90 x10(3)/mc L 09/29/2024 12:[address] [facility] Eos % 0.0 % 09/29/2024 12:[address] [facility] Eos Absolute <0.04 0.00 - 0.40 x10(3)/mc L 09/29/2024 12:[address] [facility] Basophil % 0.2 % 09/29/2024 12:[address] [facility] Baso Absolute <0.04 0.00 - 0.10 x10(3)/mc L 09/29/2024 12:[address] [facility] Immature Gran % 1.4 % 12:[address] [facility] Immature Gran Absolute 0.18(H) 0.00 - 0.04 x10(3)/mc L 09/29/2024 12:[address] [facility] Blood VENOUS BLOOD SPECIMEN / Unknown Venipuncture / Unknown 09/28/2024 11:51 PM EST 09/28/2024 11:56 PM EST Hayley Torres MD HEMATOLOGY ORDERABLE S Performing Organization Address [facility]/ZIP Co de Phone Number [facility] [place] [address] * (ABNORMAL) POC, GLUCOSE (09/28/2024 11:45 PM EST) Glucometer, POC 238(H) 65 - 199 mg/dL 09/28/2024 11:45 PM EST [facility] Comment:Supplemental ranges: <140 mg/dL before meals <180 mg/dL all other times of the day. Blood CAPILLARY BLOOD / Unknown 09/28/2024 11:45 PM EST 09/28/2024 11:45 PM EST Hayley Torres MD POINT OF CARE TEST O RDERAHERNANDEZ Performing Organization Address [facility] Co de Phone Number [facility] [place] [address] * (ABNORMAL) POC, GLUCOSE (09/28/2024 10:00 PM EST) Glucometer, POC 287(H) 65 - 199 mg/dL 09/28/2024 10:00 PM EST [facility] Comment:Supplemental ranges: <140 mg/dL before meals <180 mg/dL all other times of the day. Blood CAPILLARY BLOOD / Unknown 09/28/2024 10:00 PM EST 09/28/2024 10:00 PM EST Hayley Torres MD POINT OF CARE TEST O GILDA [facility] [place] [address] * (ABNORMAL) POC, GLUCOSE (09/28/2024 7:51 PM EST) Glucometer, POC 243(H) 65 - 199 mg/dL 09/28/2024 7:52 PM EST [facility] Comment:Supplemental ranges: <140 mg/dL before meals <180 mg/dL all other times of the day. Blood CAPILLARY BLOOD / Unknown 09/28/2024 7:51 PM EST 09/28/2024 7:52 PM EST Hayley Torres MD POINT OF CARE TEST O RDERABLES Performing Organization Address City/[facility]/ZIP Co de Phone Number [facility] [place] [address] * Blood culture (09/28/2024 5:49 PM EST) Blood Culture No growth at 120 hours 10/03/2024 7:01 PM EST [facility] Blood VENOUS BLOOD SPECIMEN / Unknown Venipuncture / Unknown 09/28/2024 5:49 PM EST 09/28/2024 5:53 PM EST Marko Dickson MD MICROBIOLOGY - BLOOD ORDERABLES Performing Organization Address [facility] Co de Phone Number [facility] [place] [address] * (ABNORMAL) POC, GLUCOSE (09/28/2024 4:42 PM EST) Glucometer, POC 203(H) 65 - 199 mg/dL 09/28/2024 4:42 PM EST [facility] Comment:Supplemental ranges: <140 mg/dL before meals <180 mg/dL all other times of the day. Blood CAPILLARY BLOOD / Unknown 09/28/2024 4:42 PM EST 09/28/2024 4:42 PM EST Hayley Torres MD POINT OF CARE TEST O RDERABLES Performing Organization Address [facility] Co de Phone Number [facility] [place] [address] * (ABNORMAL) Blood Gas, Arterial POC (09/28/2024 3:16 PM EST) pH, Arterial 7.42 7.35 - 7.45 09/28/2024 3:17 PM EST [facility] PCO2, Arterial 39 35 - 45 mmHg 09/28/2024 3:[address] [facility] PO2, Arterial 103 85 - 104 mmHg 09/28/2024 3:[address] [facility] Bicarbonate, Arterial 24.8 20.0 - 26.0 mmol/L 09/28/2024 3:[address] [facility] Base Excess, Arterial 0.2 -3.0 - 3.0 mmol/L 09/28/2024 3:[address] [facility] Hemoglobin, Arterial 10.9(L) 13.7 - 16.5 g/dL 09/28/2024 3:[address] [facility] Oxyhemoglobin, Arterial 97.1(H) 94.0 - 97.0 % 09/28/2024 3:[address] [facility] Carboxyhemoglobin , Arterial 0.1 % 09/28/2024 3:[address] [facility] Comment: Nonsmokers: 0.5-1.5% COHB ?? Smokers: Variable ??but usually less than 10% ?? Toxic: 20-30% COHB ?? Lethal: Greater than 60% COHB Methemoglobin, Arterial 0.2 <=1.5 % 09/28/2024 3:[address] [facility] Sodium, Arterial 131(L) 135 - 145 mmol/L 09/28/2024 3:[address] [facility] Potassium, Arterial 3.8 3.5 - 5.0 mmol/L 09/28/2024 3:[address] [facility] Chloride, Arterial 99 98 - 107 mmol/L 09/28/2024 3:[address] [facility] Lactate, Arterial 1.1 0.5 - 2.2 mmol/L 09/28/2024 3:[address] [facility] IONIZED CALCIUM, ARTERIAL 1.08(L) 1.15 - 1.33 mmol/L 09/28/2024 3:[address] [facility] Glucose, Arterial 163 65 - 199 mg/dL 09/28/2024 3:17 PM EST [facility] Comment:Glucose Concentratio n >=200 mg/dL plus symptoms is consistent with Diabetes Mellitus. Blood ARTERIAL BLOOD / Unknown 09/28/2024 3:16 PM EST 09/28/2024 3:17 PM EST Hayley Torres MD POINT OF CARE TEST O RDERABLES [facility] [place] [address] * Surgical Pathology (09/28/2024 2:10 PM EST) Case Report Surgical Pathology Report ? Case: [id number] ? Authorizing Provider: ??Hayley Torres MD ? Collected: ? 09/28/2024 1410 ? Ordering Location: ? Main Operating Room [facility] ?? Received: ?09/28/2024 1644 ? [facility] ? Hospital ? Pathologist: ? Aziza Packer MD ? Specimens: ?? A) - Leg, Left, Left femoral proximal graft ? B) - Leg, Left, Left distal BK pop graft ? 10/02/2024 8:[address] [facility] Final Diagnosis A. Graft, left leg, femoral proximal, excision: - Gross surgical pathology examination. B. Graft, left leg, distal BK pop, excision: - Gross surgical pathology examination. 10/02/2024 8:[address] [facility] Clinical Information A. Leg, Left, Left femoral proximal graft Left femoral proximal graft B. Leg, Left, Left distal BK pop graft Left distal BK pop graft 10/02/2024 8:[address] [facility] Gross Description A. Leg, Left, [...] 8:17 AM EST [facility] Environmental Engineering Technician STRUCTURE OF LEFT LOWER LIMB / Unknown 09/28/2024 2:10 PM EST 09/28/2024 4:44 PM EST Comment:Left femoral proxima l graft Biomedical device (physical object) STRUCTURE OF LEFT LOWER LIMB / Unknown 09/28/2024 2:17 PM EST 09/28/2024 4:44 PM EST Comment:Left distal BK pop g raft Hayley Torres MD PATHOLOGY/CYTOLOGY O RDERABLES Performing Organization Address City/[facility]/ZIP Co de Phone Number [facility] [place] [address] * Potassium (09/28/2024 10:45 AM EST) Potassium 4.6 3.5 - 5.0 mMol/L 09/28/2024 12:26 PM EST [facility] Blood VENOUS BLOOD SPECIMEN / Unknown Venipuncture / Unknown 09/28/2024 10:45 AM EST 09/28/2024 10:53 AM EST Marko Dickson MD CHEMISTRY ORDERABLES Performing Organization Address City/[facility]/ZIP Co de Phone Number [facility] [place] [address] * POC, GLUCOSE (09/28/2024 7:57 AM EST) Glucometer, POC 192 65 - 199 mg/dL 09/28/2024 7:57 AM EST [facility] Comment:Supplemental ranges: <140 mg/dL before meals <180 mg/dL all other times of the day. Blood CAPILLARY BLOOD / Unknown 09/28/2024 7:57 AM EST 09/28/2024 7:57 AM EST Marko Dickson MD POINT OF CARE TEST O RDERABLES [facility] [place] [address] * ELEN, legs, multiple levels (09/28/2024 7:44 AM EST) VB Text Report Department: Vascular Surgery Lab Patient: [id number] (GEOVANNA DIXON) CPT: 05133 Referring Physician: HERMILA SNIDER ?? Phone: Indications: [...] VASCUBASE 09/28/2024 7:44 AM EST Hermila White FAIRGROUND OPERATOR VASCULAR ORDERABLE S VASCUBASE * ECHO LMTD W/O CONTRAST W LMTD SPEC DOPP COLOR DOPP (09/28/2024 7:35 AM EST) Anatomical Region Laterality Modality Cardiac Other 09/28/2024 6:56 AM EST Narrative 09/28/2024 9:15 AM EST 1 [place] [address] ? Echocardiogram Report Name: GEOVANNA DIXON JR ?Study Date: 09/28/2024 06:56 AMBP: 132/75 mmHg ? Patient Location: ^IC08^A : 1975 ? Height: 179 cm ? Account: [id number] Age: 49 yrs ? Weight: 108 kg Gender: Male ?BSA: 2.3 m2 Ordering Physician: Marko Dickson MD Referring Physician: PATRIC GILES Performed By: Faiza Cole Reason For Study: Vascular graft infection, initial encounter; MRSA bacteremia Interpreting Fellow: Jame Lares. Exam Location: [facility]. Interpretation Summary -Limited study performed [...] 05/29/2024, no significant changes. Procedure Limited - 43630. Doppler - 99584. Color Doppler - 27010. Suboptimal quality. This study is limited because [...] Note David Lomeli MD - 09/28/2024 [address] [place] [address] Echocardiogram Report Name: GEOVANNA DIXON JR Study Date: 406:56 AMBP: 132/75 mmHg Patient Location:IC08^A : 1975 Height: 179 cm Account: [id number] Age: 49 yrs Weight: 108 kg Gender: Male BSA: 2.3 m2 Ordering Physician: Marko Dickson MD Referring Physician: PATRIC GILES Performed By: Faiza Cole Reason For Study: Vascular graft infection, initial encounter; MRSAbacteremia Interpreting Fellow: Jame Lares. Exam Location: [facility]. Interpretation Summary -Limited study performed [...] 05/29/2024, no significant changes. Procedure Limited - 49317. Doppler - 93613. Color Doppler - 06624. Suboptimalquality. This study is limited because of [...] - 20.0 mg/L 09/28/2024 7:21 AM EST [facility] Comment: Varies according to infection source. Blood VENOUS BLOOD SPECIMEN / Unknown Venipuncture / Unknown 09/28/2024 6:44 AM EST 09/28/2024 6:49 AM EST Marko Dickson MD CHEMISTRY ORDERABLES [facility] [place] [address] * (ABNORMAL) Potassium (09/28/2024 4:55 AM EST) Potassium 2.9(LLL) 3.5 - 5.0 mMol/L 09/28/2024 5:31 AM EST [facility] Blood VENOUS BLOOD SPECIMEN / Unknown Venipuncture / Unknown 09/28/2024 4:55 AM EST 09/28/2024 5:01 AM EST Marko Dickson MD CHEMISTRY ORDERABLES [facility] [place] [address] * (ABNORMAL) POC, GLUCOSE (09/28/2024 3:54 AM EST) [facility] Glucometer, POC 229(H) 65 - 199 mg/dL 09/28/2024 3:54 AM EST [facility] Comment:Supplemental ranges: <140 mg/dL before meals <180 mg/dL all other times of the day. Blood CAPILLARY BLOOD / Unknown 09/28/2024 3:54 AM EST 09/28/2024 3:54 AM EST Marko Dickson MD POINT OF CARE TEST O RDERABLES [facility] [place] [address] * Magnesium (09/27/2024 11:58 PM EST) [facility] Magnesium 0.77 0.69 - 1.07 mMol/L 09/28/2024 12:38 AM EST [facility] Blood VENOUS BLOOD SPECIMEN / Unknown Venipuncture / Unknown 09/27/2024 11:58 PM EST 09/28/2024 12:10 AM EST Hayley Torres MD CHEMISTRY ORDERABLES [facility] [place] [address] * (ABNORMAL) Basic Metabolic Panel (09/27/2024 11:58 PM EST) Glucose 246(H) 65 - 199 mg/dL 09/28/2024 12:[address] [facility] Comment:Glucose Concentratio n >=200 mg/dL plus symptoms is consistent with Diabetes Mellitus. Blood Urea Nitrogen 5(L) 10 - 20 mg/dL 09/28/2024 12:[address] [facility] Creatinine 0.48(L) 0.80 - 1.50 mg/dL 09/28/2024 12:[address] [facility] Sodium 131(L) 135 - 145 mMol/L 09/28/2024 12:[address] [facility] Potassium 3.2(L) 3.5 - 5.0 mMol/L 09/28/2024 12:[address] [facility] Chloride 95(L) 98 - 107 mMol/L 09/28/2024 12:[address] [facility] Carbon Dioxide 23 22 - 31 mMol/L 09/28/2024 12:[address] [facility] Anion Gap 13 5 - 15 mMol/L 09/28/2024 12:[address] [facility] Calcium 8.1(L) 8.5 - 10.5 mg/dL 09/28/2024 12:[address] [facility] Est Glomerular Filtration Rate - Male 126 mL/min/1. 73 m?? 09/28/2024 12:[address] [facility] Comment: [...] MD CHEMISTRY ORDERABLES [facility] [place] [address] * (ABNORMAL) CBC (with Diff) (09/27/2024 11:58 PM EST) White Blood Cell 17.15(H) 4.00 - 9.50 x10(3)/mc L 09/28/2024 12:[address] [facility] Red Blood Cell 3.64(L) 4.58 - 5.54 x10(6)/mc L 09/28/2024 12:[address] [facility] Hemoglobin 10.4(L) 13.7 - 16.5 g/dL 09/28/2024 12:[address] [facility] Hematocrit 30.5(L) 40.5 - 48.5 % 09/28/2024 12:[address] [facility] Mean Cell Volume 83.8 82.9 - 93.1 fL 09/28/2024 12:[address] [facility] Mean Cell Hemoglobin 28.6 27.5 - 32.1 pg 09/28/2024 12:[address] [facility] Mean Cell Hemoglobin Concentration 34.1 32.0 - 35.7 g/dL 09/28/2024 12:[address] [facility] Platelet 316 145 - 357 x10(3)/mc L 09/28/2024 12:[address] [facility] Mean Platelet Volume 9.4 7.6 - 12.9 fL 09/28/2024 12:[address] [facility] RDW Standard Deviation 39.4 36.0 - 45.0 fL 09/28/2024 12:[address] [facility] RDW coefficient of variation 12.8 11.4 - 13.8 % 09/28/2024 12:[address] [facility] NRBC% auto 0.0 % 09/28/2024 12:[address] [facility] NRBC Absolute <0.01 <0.01 x10(3)/mc L 09/28/2024 12:[address] [facility] Neutrophil % 81.2 % 09/28/2024 12:[address] [facility] Neutrophil Absolute (ANC) - Automated 13.93(H) 1.70 - 6.10 x10(3)/mc L 09/28/2024 12:[address] [facility] Lymph % 10.5 % 09/28/2024 12:[address] [facility] Lymph Absolute 1.80 0.90 - 3.20 x10(3)/mc L 09/28/2024 12:[address] [facility] Monocyte % 5.7 % 09/28/2024 12:[address] [facility] Monocyte Absolute 0.98(H) 0.30 - 0.90 x10(3)/mc L 09/28/2024 12:[address] [facility] Eos % 0.7 % 09/28/2024 12:[address] [facility] Eos Absolute 0.12 0.00 - 0.40 x10(3)/mc L 09/28/2024 12:[address] [facility] Basophil % 0.5 % 09/28/2024 12:[address] [facility] Baso Absolute 0.08 0.00 - 0.10 x10(3)/mc L 09/28/2024 12:[address] [facility] Immature Gran % 1.4 % 12:[address] [facility] Immature Gran Absolute 0.24(H) 0.00 - 0.04 x10(3)/mc L 09/28/2024 12:[address] [facility] Blood VENOUS BLOOD SPECIMEN / Unknown Venipuncture / Unknown 09/27/2024 11:58 PM EST 09/28/2024 12:10 AM EST Hayley Torres MD HEMATOLOGY ORDERABLE S [facility] [place] [address] * (ABNORMAL) POC, GLUCOSE (09/27/2024 11:46 PM EST) Glucometer, POC 205(H) 65 - 199 mg/dL 09/27/2024 11:46 PM EST [facility] Comment:Supplemental ranges: <140 mg/dL before meals <180 mg/dL all other times of the day. Blood CAPILLARY BLOOD / Unknown 09/27/2024 11:46 PM EST 09/27/2024 11:46 PM EST Marko Dickson MD POINT OF CARE TEST O RDERABLES [facility] [place] [address] * (ABNORMAL) Blood culture (09/27/2024 9:33 PM EST) [facility] Blood Culture Methicillin Resistant Staphylococcus aureus(Critical) 10/02/2024 8:04 AM EST [facility] Comment:Susceptibilities pre viously reported. Gram Stain Aerobic Bottle: Gram positive cocci in clusters(Critical ) 10/02/2024 8:04 AM EST [facility] Blood VENOUS BLOOD SPECIMEN / Unknown Venipuncture / Unknown 09/27/2024 9:33 PM EST 09/27/2024 9:38 PM EST Marko Dickson MD MICROBIOLOGY - BLOOD ORDERABLES [facility] [place] [address] * POC, GLUCOSE (09/27/2024 7:51 PM EST) Glucometer, POC 142 65 - 199 mg/dL 09/27/2024 7:51 PM EST [facility] Comment:Supplemental ranges: <140 mg/dL before meals <180 mg/dL all other times of the day. Blood CAPILLARY BLOOD / Unknown 09/27/2024 7:51 PM EST 09/27/2024 7:51 PM EST Marko Dickson MD POINT OF CARE TEST O RDERABLES [facility] [place] [address] * (ABNORMAL) Hemogram (09/27/2024 5:55 PM EST) [facility] White Blood Cell 19.38(H) 4.00 - 9.50 x10(3)/mc L 09/27/2024 6:[address] [facility] Red Blood Cell 3.76(L) 4.58 - 5.54 x10(6)/mc L 09/27/2024 6:[address] [facility] Hemoglobin 11.0(L) 13.7 - 16.5 g/dL 09/27/2024 6:[address] [facility] Hematocrit 31.6(L) 40.5 - 48.5 % 09/27/2024 6:[address] [facility] Mean Cell Volume 84.0 82.9 - 93.1 fL 09/27/2024 6:[address] [facility] Mean Cell Hemoglobin 29.3 27.5 - 32.1 pg 09/27/2024 6:[address] [facility] Mean Cell Hemoglobin Concentration 34.8 32.0 - 35.7 g/dL 09/27/2024 6:[address] [facility] Platelet 322 145 - 357 x10(3)/mc L 09/27/2024 6:[address] [facility] Mean Platelet Volume 9.4 7.6 - 12.9 fL 09/27/2024 6:[address] [facility] RDW Standard Deviation 39.4 36.0 [...] MD HEMATOLOGY ORDERABLE S Performing Organization Address City/[facility]/ZIP Co de Phone Number [facility] [place] [address] * POC, GLUCOSE (09/27/2024 5:48 PM EST) Glucometer, POC 171 65 - 199 mg/dL 09/27/2024 5:48 PM EST [facility] Comment:Supplemental ranges: <140 mg/dL before meals <180 mg/dL all other times of the day. 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 Hayley Torres MD MICROBIOLOGY - GENER AL ORDERABLES [facility] [place] [address] * (ABNORMAL) Tissue Culture, Aerobic Only (09/27/2024 [...] GENER AL ORDERABLES [facility] [place] [address] * Fungus culture (09/27/2024 4:54 PM EST) Fungus Culture No fungus isolated 10/31/2024 7:55 AM EST [facility] Tissue STRUCTURE OF LEFT THIGH / Unknown 09/27/2024 4:54 PM EST 09/27/2024 5:23 PM EST Comment: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 Blood CAPILLARY BLOOD / Unknown 09/27/2024 3:23 PM EST 09/27/2024 3:23 PM EST Marko Dickson MD POINT OF CARE TEST O RDERABLES Performing Organization Address [facility]/ZIP Co de Phone Number [facility] [place] [address] * POC, GLUCOSE (09/27/2024 11:29 AM EST) Glucometer, POC 181 65 - 199 mg/dL 09/27/2024 11:29 AM EST [facility] Comment:Supplemental ranges: <140 mg/dL before meals <180 mg/dL all other times of the day. Blood CAPILLARY BLOOD / Unknown 09/27/2024 11:29 AM EST 09/27/2024 11:30 AM EST Marko Dickson MD POINT OF CARE TEST O RDERABLES Performing Organization Address City/[facility]/ZIP Co de Phone Number [facility] [place] [address] * CT Lower Extremity w Contrast Left (09/27/2024 9:16 AM EST) [employer] Signature WORKSTATION ID [id number] RAD Anatomical Region Laterality Modality Hip, Leg, [...] who have questions please contact the health skin care specialist that requested your imaging first. ? Electronically signed by: Ignacia Chi MD, [facility] ([phone]), at 09/27/2024 10:48 AM Narrative 09/27/2024 10:48 [...] wedged between the vastus medialis and adductor Buhl muscle. This tracks into the popliteal fossa [...] patients who have questions please contactthe health skin care specialist that requested your imaging first. Rose Wright APRN IMG CT ORDERABL ES * POC, GLUCOSE (09/27/2024 7:51 AM EST) Pathologist [facility] Glucometer, POC 194 65 - 199 mg/dL 09/27/2024 7:51 AM EST [facility] Comment:Supplemental ranges: <140 mg/dL before meals <180 mg/dL all other times of the day. Blood CAPILLARY BLOOD / Unknown 09/27/2024 7:51 AM EST 09/27/2024 7:51 AM EST Marko Dickson MD POINT OF CARE TEST O RDERABLES [facility] [place] [address] * (ABNORMAL) MRSA PCR Screen (09/27/2024 7:51 AM EST) MRSA PCR Detected(A ) 09/27/2024 11:56 AM EST [facility] Swab BOTH ANTERIOR NARES / Unknown Non Blood Collection / Unknown 09/27/2024 7:51 AM EST 09/27/2024 8:05 AM EST Narrative [facility] - 09/27/2024 11:56 AM EST This test was performed using the Xpert MRSA NxG test kit and is run on the [employer] GeneXpert Dx System. This test is cleared by the U.S. Food and Drug Administration for clinical use and its performance characteristics have been verified by the [facility] at [facility]. Marko Dickson MD MOLECULAR ORDERABLES [facility] [place] [address] * Potassium (09/27/2024 7:51 AM EST) Potassium 3.5 3.5 - 5.0 mMol/L 09/27/2024 9:09 AM EST [facility] Blood VENOUS BLOOD SPECIMEN / Unknown Venipuncture / Unknown 09/27/2024 7:51 AM EST 09/27/2024 8:05 AM EST Marko Dickson MD CHEMISTRY ORDERABLES Performing Organization Address [facility]/ZIP Co de Phone Number [facility] [place] [address] * (ABNORMAL) Potassium (09/27/2024 5:05 AM EST) [facility] Signature Potassium 3.4(L) 3.5 - 5.0 mMol/L 09/27/2024 5:32 AM EST [facility] Blood VENOUS BLOOD SPECIMEN / Unknown Venipuncture / Unknown 09/27/2024 5:05 AM EST 09/27/2024 5:09 AM EST Marko Dickson MD CHEMISTRY ORDERABLES Performing Organization Address City/[facility]/ZIP Co de Phone Number [facility] [place] [address] * POC, GLUCOSE (09/27/2024 3:52 AM EST) Glucometer, POC 199 65 - 199 mg/dL 09/27/2024 3:52 AM EST [facility] Comment:Supplemental ranges: <140 mg/dL before meals <180 mg/dL all other times of the day. Blood CAPILLARY BLOOD / Unknown 09/27/2024 3:52 AM EST 09/27/2024 3:52 AM EST Marko Dickson MD POINT OF CARE TEST O GILDA Performing Organization Address City/[facility]/ZIP Co de Phone Number [facility] [place] [address] * (ABNORMAL) POC, GLUCOSE (09/27/2024 1:59 AM EST) Glucometer, POC 219(H) 65 - 199 mg/dL 09/27/2024 2:00 AM EST [facility] Comment:Supplemental ranges: <140 mg/dL before meals <180 mg/dL all other times of the day. Blood CAPILLARY BLOOD / Unknown 09/27/2024 1:59 AM EST 09/27/2024 2:00 AM EST Marko Dickson MD POINT OF CARE TEST Stephanie VO Performing Organization Address [facility]/ZIP Co de Phone Number [facility] [place] [address] * (ABNORMAL) Magnesium (09/27/2024 12:01 AM EST) Magnesium 0.68(L) 0.69 - 1.07 mMol/L 09/27/2024 12:35 AM EST [facility] Blood VENOUS BLOOD SPECIMEN / Unknown Venipuncture / Unknown 09/27/2024 12:01 AM EST 09/27/2024 12:05 AM EST Hayley Torres MD CHEMISTRY ORDERABLES Performing Organization Address City/[facility]/ZIP Co de Phone Number [facility] [place] [address] * (ABNORMAL) Basic Metabolic Panel (09/27/2024 12:01 AM EST) Glucose 261(H) 65 - 199 mg/dL 09/27/2024 12:35 AM EST [facility] Comment:Glucose Concentratio n >=200 mg/dL plus symptoms is consistent with Diabetes Mellitus. Blood Urea Nitrogen 7(L) 10 - 20 mg/dL 09/27/2024 12:[address] [facility] Creatinine 0.45(L) 0.80 - 1.50 mg/dL 09/27/2024 12:[address] [facility] Sodium 128(L) 135 - 145 mMol/L 09/27/2024 12:[address] [facility] Potassium 3.3(L) 3.5 - 5.0 mMol/L 09/27/2024 12:[address] [facility] Chloride 92(L) 98 - 107 mMol/L 09/27/2024 12:[address] [facility] Carbon Dioxide 23 22 - 31 mMol/L 09/27/2024 12:[address] [facility] Anion Gap 13 5 - 15 mMol/L 09/27/2024 12:[address] [facility] Calcium 8.5 8.5 - 10.5 mg/dL 09/27/2024 12:[address] [facility] Est Glomerular Filtration Rate - Male 128 mL/min/1. 73 m?? 09/27/2024 12:[address] [facility] Comment: [...] MD CHEMISTRY ORDERABLES [facility] [place] [address] * (ABNORMAL) CBC (with Diff) (09/27/2024 12:01 AM EST) White Blood Cell 23.20(H) 4.00 - 9.50 x10(3)/mc L 09/27/2024 12:[address] [facility] Red Blood Cell 4.07(L) 4.58 - 5.54 x10(6)/mc L 09/27/2024 12:[address] [facility] Hemoglobin 11.7(L) 13.7 - 16.5 g/dL 09/27/2024 12:[address] [facility] Hematocrit 33.6(L) 40.5 - 48.5 % 09/27/2024 12:[address] [facility] Mean Cell Volume 82.6(L) 82.9 - 93.1 fL 09/27/2024 12:[address] [facility] Mean Cell Hemoglobin 28.7 27.5 - 32.1 pg 09/27/2024 12:[address] [facility] Mean Cell Hemoglobin Concentration 34.8 32.0 - 35.7 g/dL 09/27/2024 12:[address] [facility] Platelet 296 145 - 357 x10(3)/mc L 09/27/2024 12:[address] [facility] Mean Platelet Volume 9.5 7.6 - 12.9 fL 09/27/2024 12:[address] [facility] RDW Standard Deviation 37.9 36.0 - 45.0 fL 09/27/2024 12:[address] [facility] RDW coefficient of variation 12.6 11.4 - 13.8 % 09/27/2024 12:[address] [facility] NRBC% auto 0.0 % 09/27/2024 12:[address] [facility] NRBC Absolute <0.01 <0.01 x10(3)/mc L 09/27/2024 12:[address] [facility] Neutrophil % 83.7 % 09/27/2024 12:[address] [facility] Neutrophil Absolute (ANC) - Automated 19.43(H) 1.70 - 6.10 x10(3)/mc L 09/27/2024 12:[address] [facility] Lymph % 6.7 % 09/27/2024 12:[address] [facility] Lymph Absolute 1.56 0.90 - 3.20 x10(3)/mc L 09/27/2024 12:[address] [facility] Monocyte % 7.8 % 09/27/2024 12:[address] [facility] Monocyte Absolute 1.80(H) 0.30 - 0.90 x10(3)/mc L 09/27/2024 12:[address] [facility] Eos % 0.2 % 09/27/2024 12:[address] [facility] Eos Absolute 0.04 0.00 - 0.40 x10(3)/mc L 09/27/2024 12:[address] [facility] Basophil % 0.5 % 09/27/2024 12:[address] [facility] Baso Absolute 0.12(H) 0.00 - 0.10 x10(3)/mc L 09/27/2024 12:[address] [facility] Immature Gran % 1.1 % 12:[address] [facility] Immature Gran Absolute 0.25(H) 0.00 - 0.04 x10(3)/mc L 09/27/2024 12:[address] [facility] Blood VENOUS BLOOD SPECIMEN / Unknown Venipuncture / Unknown 09/27/2024 12:01 AM EST 09/27/2024 12:05 AM EST Hayley Torres MD HEMATOLOGY ORDERABLE S [facility] [place] [address] * (ABNORMAL) POC, GLUCOSE (09/26/2024 11:59 PM EST) Glucometer, POC 251(H) 65 - 199 mg/dL 09/26/2024 11:59 PM EST [facility] Comment:Supplemental ranges: <140 mg/dL before meals <180 mg/dL all other times of the day. Blood CAPILLARY BLOOD / Unknown 09/26/2024 11:59 PM EST 09/26/2024 11:59 PM EST Marko Dickson MD POINT OF CARE TEST O GILDA [facility] [place] [address] * (ABNORMAL) POC, GLUCOSE (09/26/2024 7:34 PM EST) Glucometer, POC 204(H) 65 - 199 mg/dL 09/26/2024 7:34 PM EST [facility] Comment:Supplemental ranges: <140 mg/dL before meals <180 mg/dL all other times of the day. Blood CAPILLARY BLOOD / Unknown 09/26/2024 7:34 PM EST 09/26/2024 7:35 PM EST Marko Dickson MD POINT OF CARE TEST Stephanie VO [facility] [place] [address] * (ABNORMAL) Blood culture (09/26/2024 6:45 PM EST) Blood Culture Methicillin Resistant Staphylococcus aureus(Critical) 10/01/2024 6:58 AM EST [facility] Comment: isolated. Susceptibilities previously reported. Gram Stain Aerobic Bottle: Gram positive cocci in clusters(Critical ) 10/01/2024 6:58 AM EST [facility] Blood VENOUS BLOOD SPECIMEN / Unknown Venipuncture / Unknown 09/26/2024 6:45 PM EST 09/26/2024 6:48 PM EST Marko Dickson MD MICROBIOLOGY - BLOOD ORDERABLES Performing Organization Address [facility]/ZIP Co de Phone Number [facility] [place] [address] * (ABNORMAL) Sonicated Tissue/Implant Culture (09/26/2024 5:16 [...] - GENER AL ORDERABLES Performing Organization Address City/[facility]/ZIP Co de Phone Number [facility] [place] [address] * Anaerobic Culture (09/26/2024 5:02 PM EST) Anaerobic Culture No anaerobic organisms isolated 09/30/2024 3:51 PM EST [facility] Abscess STRUCTURE OF LEFT KNEE REGION / Unknown Non Blood Collection / Unknown 09/26/2024 5:02 PM EST Comment:Left Below Knee popl iteal fluid Please perform Gram stain if not included in order Hayley Torres MD MICROBIOLOGY - GENER AL ORDERABLES Performing Organization Address City/[facility]/ZIP Co de Phone Number [facility] [place] [address] * (ABNORMAL) Abscess/Wound Aspirate Culture, Aerobic Only [...] GENER AL ORDERABLES [facility] [place] [address] * Fungus culture (09/26/2024 5:02 PM EST) Fungus Culture No fungus isolated 10/24/2024 7:54 AM EST [facility] Abscess STRUCTURE OF LEFT KNEE REGION / Unknown Non Blood Collection / Unknown 09/26/2024 5:02 PM EST 09/26/2024 5:08 PM EST Comment:Left Below Knee popl iteal fluid Please perform Gram stain if not included in order Hayley Torres MD MICROBIOLOGY - GENER AL ORDERABLES [facility] [place] [address] * Anaerobic Culture (09/26/2024 4:50 PM EST) Anaerobic Culture No anaerobic organisms isolated 09/30/2024 3:51 PM EST [facility] Abscess LEFT INGUINAL REGION STRUCTURE / Unknown Non Blood Collection / Unknown 09/26/2024 4:50 PM EST Comment:Left Groin Fluid Hayley Torres MD MICROBIOLOGY - GENER AL ORDERABLES [facility] [place] [address] * (ABNORMAL) Abscess/Wound Aspirate Culture, Aerobic Only (09/26/2024 4:50 PM EST) Abscess/Wound Aspirate Culture Many Methicillin Resistant Staphylococcus aureus(A) VITEK 2 METHOD 09/30/2024 1:36 PM EST [facility] Gram Stain Many neutrophils(A) 09/30/2024 1:36 PM EST [facility] Gram Stain Many Gram positive cocci(A) 09/30/2024 1:36 PM EST [facility] Abscess LEFT INGUINAL REGION STRUCTURE [...] - GENER AL ORDERABLES Performing Organization Address [facility] Co de Phone Number [facility] [place] [address] * Fungus culture (09/26/2024 4:50 PM EST) Pathologist [facility] Fungus Culture No fungus isolated 10/24/2024 7:[address] [facility] Abscess LEFT INGUINAL REGION STRUCTURE / Unknown Non Blood Collection / Unknown 09/26/2024 4:50 PM EST 09/26/2024 4:56 PM EST Comment:Left Groin Fluid Hayley Torres MD MICROBIOLOGY - GENER AL ORDERABLES Performing Organization Address [facility] Co de Phone Number [facility] [place] [address] * (ABNORMAL) Blood Gas, Arterial POC (09/26/2024 4:43 PM EST) [facility] pH, Arterial 7.38 7.35 - 7.45 09/27/2024 7:[address] [facility] PCO2, Arterial 41 35 - 45 mmHg 09/27/2024 7:[address] [facility] PO2, Arterial 96 85 - 104 mmHg 09/27/2024 7:[address] [facility] Bicarbonate, Arterial 23.8 20.0 - 26.0 mmol/L 09/27/2024 7:[address] [facility] Base Excess, Arterial -1.4 -3.0 - 3.0 mmol/L 09/27/2024 7:[address] [facility] Hemoglobin, Arterial 12.6(L) 13.7 - 16.5 g/dL 09/27/2024 7:[address] [facility] Oxyhemoglobin, Arterial 96.2 94.0 - 97.0 % 09/27/2024 7:[address] [facility] Carboxyhemoglobin , Arterial 0.3 % 09/27/2024 7:[address] [facility] Comment: Nonsmokers: 0.5-1.5% COHB ?? Smokers: Variable ??but usually less than 10% ?? Toxic: 20-30% COHB ?? Lethal: Greater than 60% COHB Methemoglobin, Arterial 0.3 <=1.5 % 09/27/2024 7:[address] [facility] Sodium, Arterial 128(L) 135 - 145 mmol/L 09/27/2024 7:[address] [facility] Potassium, Arterial 3.0(LLL) 3.5 - 5.0 mmol/L 09/27/2024 7:[address] [facility] Chloride, Arterial 95(L) 98 - 107 mmol/L 09/27/2024 7:[address] [facility] Lactate, Arterial 1.7 0.5 - 2.2 mmol/L 09/27/2024 7:[address] [facility] IONIZED CALCIUM, ARTERIAL 1.09(L) 1.15 - 1.33 mmol/L 09/27/2024 7:[address] [facility] Glucose, Arterial 205(H) 65 - 199 mg/dL 09/27/2024 7:[address] [facility] Comment:Glucose Concentratio n >=200 mg/dL plus symptoms is consistent with Diabetes Mellitus. Blood ARTERIAL BLOOD / Unknown 09/26/2024 4:43 PM EST 09/27/2024 7:41 AM EST Marko Dickson MD POINT OF CARE TEST O RDERABLES [facility] [place] [address] * (ABNORMAL) POC, GLUCOSE (09/26/2024 4:29 PM EST) Glucometer, POC 213(H) 65 - 199 mg/dL 09/26/2024 4:30 PM EST [facility] Comment:Supplemental ranges: <140 mg/dL before meals <180 mg/dL all other times of the day. Blood CAPILLARY BLOOD / Unknown 09/26/2024 4:29 PM EST 09/26/2024 4:30 PM EST Marko Dickson MD POINT OF CARE TEST O RDERABLES [facility] [place] [address] * (ABNORMAL) Blood Gas, Venous POC (09/26/2024 3:28 PM EST) pH, Venous 7.43(H) 7.32 - 7.42 09/26/2024 3:[address] [facility] PCO2, Venous 41 38 - 58 mmHg 09/26/2024 3:[address] [facility] PO2, Venous 18 16 - 65 mmHg 09/26/2024 3:[address] [facility] Bicarbonate, Venous 26.6 22 - 31 mmol/L 09/26/2024 3:[address] [facility] Base Excess, Venous 2.3 1.9 - 4.5 mmol/L 09/26/2024 3:[address] [facility] Hemoglobin, Venous 12.4(L) 13.7 - 16.5 g/dL 09/26/2024 3:[address] [facility] Oxyhemoglobin, Venous 26.8 % 09/26/2024 3:[address] [facility] Carboxyhemoglobin , Venous 1.0 % 09/26/2024 3:[address] [facility] Comment: Nonsmokers: 0.5-1.5% COHB ?? Smokers: Variable ??but usually less than 10% ?? Toxic: 20-30% COHB ?? Lethal: Greater than 60% COHB Methemoglobin, Venous 0.4 <=1.5 % 09/26/2024 3:[address] [facility] Sodium, Venous 127(L) 135 - 145 mmol/L 09/26/2024 3:[address] [facility] Potassium, Venous 3.3(L) 3.5 - 5.0 mmol/L 09/26/2024 3:[address] [facility] Chloride, Venous 91(L) 98 - 107 mmol/L 09/26/2024 3:[address] [facility] Glucose, Venous 259(H) 65 - 199 mg/dL 09/26/2024 3:[address] [facility] Comment:Glucose Concentratio n >=200 mg/dL plus symptoms is consistent with Diabetes Mellitus. Lactate, Venous 2.2 0.5 - 2.2 mmol/L 09/26/2024 3:[address] [facility] Ionized Calcium, Venous 1.09(L) 1.15 - 1.33 mmol/L 09/26/2024 3:[address] [facility] Blood VENOUS BLOOD SPECIMEN / Unknown 09/26/2024 3:28 PM EST 09/26/2024 3:30 PM EST Marko Dickson MD POINT OF CARE TEST O RDERABLES [facility] [place] [address] * (ABNORMAL) Scan, Peripheral Blood (09/26/2024 2:39 PM EST) RBC Morphology Abnormal 09/26/2024 3:[address] [facility] Platelet Estimate Normal Normal 09/26/2024 3:[address] [facility] Microcyte 1-5 /HPF 09/26/2024 3:[address] [facility] Platelet Clumps Present(A) (none) 3:[address] [facility] WBC MORPHOLOGY See Comment(A) (none) 09/26/2024 3:[address] [facility] Comment:Dohle BodiesToxic Gr anulation Blood VENOUS BLOOD SPECIMEN / Unknown Venipuncture / Unknown 09/26/2024 2:39 PM EST 09/26/2024 2:50 PM EST Marko Dickson MD HEMATOLOGY ORDERABLE S [facility] [place] [address] * ABORH RECHECK (PATIENT HISTORY FOUND) (09/26/2024 2:39 PM EST) Pathologist [facility] ABORH Recheck Progress Complete 09/26/2024 5:01 PM EST [facility] Blood VENOUS BLOOD SPECIMEN / Unknown Venipuncture / Unknown 09/26/2024 2:39 PM EST 09/26/2024 2:56 PM EST Marko Dickson MD BLOOD BANK LAB ORDER RANDELL [facility] [place] [place] [address] * (ABNORMAL) Hepatic Function Panel (09/26/2024 2:39 PM EST) [facility] Albumin 3.1(L) 3.2 - 5.2 g/dL 09/26/2024 4:23 PM EST [facility] Aspartate Aminotransferase 16 <=39 unit/L 09/26/2024 4:23 PM EST [facility] Alanine Aminotransferase 14 0 - 55 unit/L 09/26/2024 4:[address] [facility] Alkaline Phosphatase 160(H) 40 - 130 unit/L 09/26/2024 4:[address] [facility] Bilirubin, Total 0.4 <=1.3 mg/dL 09/26/2024 4:[address] [facility] Bilirubin, Direct 0.2 0.0 - 0.3 mg/dL 09/26/2024 4:[address] [facility] Protein, Total 7.0 6.1 - 8.0 g/dL 09/26/2024 4:23 PM EST [facility] Blood VENOUS BLOOD SPECIMEN / Unknown Venipuncture / Unknown 09/26/2024 2:39 PM EST 09/26/2024 2:50 PM EST Marko Dickson MD CHEMISTRY ORDERABLES [facility] [place] [address] * (ABNORMAL) Basic Metabolic Panel (09/26/2024 2:39 PM EST) Glucose 254(H) 65 - 199 mg/dL 09/26/2024 4:32 PM EST [facility] Comment:Glucose Concentratio n >=200 mg/dL plus symptoms is consistent with Diabetes Mellitus. Blood Urea Nitrogen 9(L) 10 - 20 mg/dL 09/26/2024 4:[address] [facility] Creatinine 0.55(L) 0.80 - 1.50 mg/dL 09/26/2024 4:[address] [facility] Sodium 127(L) 135 - 145 mMol/L 09/26/2024 4:[address] [facility] Potassium 3.4(L) 3.5 - 5.0 mMol/L 09/26/2024 4:[address] [facility] Chloride 89(L) 98 - 107 mMol/L 09/26/2024 4:[address] [facility] Carbon Dioxide 25 22 - 31 mMol/L 09/26/2024 4:[address] [facility] Anion Gap 13 5 - 15 mMol/L 09/26/2024 4:[address] [facility] Calcium 8.9 8.5 - 10.5 mg/dL 09/26/2024 4:[address] [facility] Est Glomerular Filtration Rate - Male 121 mL/min/1. 73 m?? 09/26/2024 4:[address] [facility] Comment: [...] MD CHEMISTRY ORDERABLES [facility] [place] [address] * (ABNORMAL) CBC (with Diff) (09/26/2024 2:39 PM EST) White Blood Cell 22.76(H) 4.00 - 9.50 x10(3)/mc L 09/26/2024 3:[address] [facility] Red Blood Cell 4.20(L) 4.58 - 5.54 x10(6)/mc L 09/26/2024 3:[address] [facility] Hemoglobin 12.3(L) 13.7 - 16.5 g/dL 09/26/2024 3:[address] [facility] Hematocrit 35.0(L) 40.5 - 48.5 % 09/26/2024 3:[address] [facility] Mean Cell Volume 83.3 82.9 - 93.1 fL 09/26/2024 3:[address] [facility] Mean Cell Hemoglobin 29.3 27.5 - 32.1 pg 09/26/2024 3:[address] [facility] Mean Cell Hemoglobin Concentration 35.1 32.0 - 35.7 g/dL 09/26/2024 3:[address] [facility] Platelet 277 145 - 357 x10(3)/mc L 09/26/2024 3:[address] [facility] Mean Platelet Volume 9.6 7.6 - 12.9 fL 09/26/2024 3:[address] [facility] RDW Standard Deviation 37.9 36.0 - 45.0 fL 09/26/2024 3:[address] [facility] RDW coefficient of variation 12.6 11.4 - 13.8 % 09/26/2024 3:[address] [facility] NRBC% auto 0.0 % 09/26/2024 3:[address] [facility] NRBC Absolute <0.01 <0.01 x10(3)/mc L 09/26/2024 3:[address] [facility] Neutrophil % 84.0 % 09/26/2024 3:[address] [facility] Comment:This is an appended report. These results have been appended to a previously preliminary verified report. Neutrophil Absolute (ANC) - Automated 19.10(H) 1.70 - 6.10 x10(3)/mc L 09/26/2024 3:[address] [facility] Comment:This is an appended report. These results have been appended to a previously preliminary verified report. Lymph % 6.2 % 09/26/2024 3:[address] [facility] Comment:This is an appended report. These results have been appended to a previously preliminary verified report. Lymph Absolute 1.41 0.90 - 3.20 x10(3)/mc L 09/26/2024 3:[address] [facility] Comment:This is an appended report. These results have been appended to a previously preliminary verified report. Monocyte % 8.1 % 09/26/2024 3:[address] [facility] Comment:This is an appended report. These results have been appended to a previously preliminary verified report. Monocyte Absolute 1.85(H) 0.30 - 0.90 x10(3)/mc L 09/26/2024 3:[address] [facility] Comment:This is an appended report. These results have been appended to a previously preliminary verified report. Eos % 0.0 % 09/26/2024 3:21 PM EST [facility] Comment:This is an appended report. These results have been appended to a previously preliminary verified report. Eos Absolute <0.04 0.00 - 0.40 x10(3)/mc L 09/26/2024 3:21 PM EST [facility] Comment:This is an appended report. These results have been appended to a previously preliminary verified report. Basophil % 0.5 % 09/26/2024 3:21 PM EST [facility] Comment:This is an appended report. These results have been appended to a previously preliminary verified report. Baso Absolute 0.11(H) 0.00 - 0.10 x10(3)/mc L 09/26/2024 3:[address] [facility] Comment:This is an appended report. These results have been appended to a previously preliminary verified report. Immature Gran % 1.2 % 3:21 PM EST [facility] Comment:This is an appended report. These results have been appended to a previously preliminary verified report. Immature Gran Absolute 0.28(H) 0.00 - 0.04 x10(3)/mc L 09/26/2024 3:[address] [facility] Comment:This is an appended report. These results have been appended to a previously preliminary verified report. Blood VENOUS BLOOD SPECIMEN / Unknown Venipuncture / Unknown 09/26/2024 2:39 PM EST 09/26/2024 2:50 PM EST Hayley Torres MD HEMATOLOGY ORDERABLE S [facility] [place] [address] * Phosphorus (09/26/2024 2:39 PM EST) Phosphorus 3.2 2.5 - 4.5 mg/dL 09/26/2024 4:[address] [facility] Blood VENOUS BLOOD SPECIMEN / Unknown Venipuncture / Unknown 09/26/2024 2:39 PM EST 09/26/2024 2:50 PM EST Marko Dickson MD CHEMISTRY ORDERABLES Performing Organization Address City/[facility]/ZIP Co de Phone Number [facility] [place] [address] * (ABNORMAL) Magnesium (09/26/2024 2:39 PM EST) Magnesium 0.65(L) 0.69 - 1.07 mMol/L 09/26/2024 4:05 PM EST [facility] Blood VENOUS BLOOD SPECIMEN / Unknown Venipuncture / Unknown 09/26/2024 2:39 PM EST 09/26/2024 2:50 PM EST Marko Dickson MD CHEMISTRY ORDERABLES Performing Organization Address City/[facility]/ZIP Co de Phone Number [facility] [place] [address] * Type and screen ([facility]/CGP/BABITA) (09/26/2024 2:39 PM EST) Pathologist [facility] ABORH Type A POSITIVE 09/26/2024 3:45 PM EST [facility] PATIENT HISTORY Found 09/26/2024 3:45 PM EST [facility] Expires at [id number] on: 09/29/2024 09/26/2024 3:45 PM EST [facility] ANTIBODY SCREEN AUTOMATED Negative 09/26/2024 3:45 PM EST [facility] T&S only valid at [facility] 09/26/2024 3:45 PM EST [facility] Blood VENOUS BLOOD SPECIMEN / Unknown Venipuncture / Unknown 09/26/2024 2:39 PM EST 09/26/2024 2:56 PM EST Narrative [facility] - 09/26/2024 3:45 PM EST This Type and Screen result is only valid at the [facility] Marko Dickson MD BLOOD BANK LAB ORDER RANDELL Performing Organization Address City/[facility]/ZIP Co de Phone Number [facility] [place] [address] * (ABNORMAL) Fibrinogen (09/26/2024 2:39 PM EST) [...] MD HEMATOLOGY ORDERABLE S Performing Organization Address [facility] Co de Phone Number [facility] [place] [address] * APTT (09/26/2024 2:39 PM EST) Partial [...] MD HEMATOLOGY ORDERABLE S Performing Organization Address City/[facility] Co de Phone Number [facility] [place] [address] * (ABNORMAL) Prothrombin Time (09/26/2024 2:39 PM [...] 2:39 PM EST 09/26/2024 2:50 PM EST Makro Dickson MD HEMATOLOGY ORDERABLE S Performing Organization Address [facility] Co de Phone Number [facility] [place] [address] * (ABNORMAL) POC, GLUCOSE (09/26/2024 2:36 PM EST) Glucometer, POC 268(H) 65 - 199 mg/dL 09/26/2024 2:36 PM EST [facility] Comment:Supplemental ranges: <140 mg/dL before meals <180 mg/dL all other times of the day. Blood CAPILLARY BLOOD / Unknown 09/26/2024 2:36 PM EST 09/26/2024 2:36 PM EST Marko Dickson MD POINT OF CARE TEST O RDERABLES Performing Organization Address [facility] Co de Phone Number [facility] [place] [address] * (ABNORMAL) Blood culture (09/26/2024 2:22 PM EST) Blood Culture Methicillin Resistant Staphylococcus aureus(Critical) VITEK 2 METHOD 10/07/2024 7:40 AM EST [facility] Comment: detected by PCR Isolate saved. If future testing is required, contact the Microbiology Steam Setter. Gram Stain Aerobic Bottle: Gram positive cocci in clusters(Critical ) 10/07/2024 7:40 AM EST [facility] Blood [...] MICROBIOLOGY - BLOOD ORDERABLES Performing Organization Address City/State/[facility] Co de Phone Number [facility] [place] [address] * Request For 2nd Read CT Lower Extremity (09/26/2024 1:50 PM EST) [employer] WORKSTATION ID [id number] [facility] Anatomical Region Laterality Modality Hip, [...] who have questions please contact the health skin care specialist that requested your imaging first. ? Electronically signed by: Lisette Bruno MD, [facility] ([phone]), at 09/26/2024 3:01 PM Narrative 09/26/2024 3:01 PM EST EXAMINATION: REQUEST FOR 2ND READ CT LOWER EXTREMITY CLINICAL HISTORY: Pt s/p LLE femoral-below knee popliteal bypass with PTFE graft, c/f infection surrounding graft, en route to [facility] for possible vascular surgery intervention; Sending Institution [facility]; Date of exam 20240926; I believe a [...] series 3, image 8 and 641, 732, 480, 742. No other rim-enhancing fluid collection is seen. [...] [place] for possiblevascular surgery intervention; Sending Institution [facility]; Date of exam [id number]; Ibelieve a reinterpretation [...] on series 3, image 8 and 641, 652,919, 2. No other rim-enhancing fluid collection is seen. [...] patients who have questions please contactthe health skin care specialist that requested your imaging first. Electronically signed by: Lisette Bruno MD, [facility]([phone]), at 09/26/2024 3:01 PM Marko Dickson MD [...] Jeana Cabrera LPN)[phone] (Given - Provider: Lauren Zavaal RN) 0836 (Given - Provider: Terell Araiza [...] Routine documented in this encounter Care Teams Finisher Fine Diamond Dies Relationship Specialty Start Date End Date Charles [place] [address] PCP - General Internal Medicine 09/18/24 documented as of this encounter
--- OUTSIDE RECORDS SUMMARY | 2024-10-31 16:57 | XMS_ITS | Encounter Summary ---
[place] [address] Care Team Providers Care Housekeeping Aide Name Role Phone Charles Romero Primary Care Provider + Encounter Details Date Type Department Care Team (Late st Contact Info) Description 10/04/2024 9:15 AM EST Anesthesia Event [place] [address] Michelle Crawford [facility] [place] [address] Anesthesia Record Procedure Summary Procedure Name Responsible [...] calf incision 10/04/24 1557 by Linda Pollock sheet metal work furnace installer 10/06/24; 0900; Left , anterior, distal; thigh; [...] the past 12 months has th e [employer], gas, oil, or water [employer] threatened to shut off services in your [...] any time in the past 12 m [facility], were you homeless or living [...] PM EST Office Visit [place] [address] Isabela Hayward, FLOORING HELPER [facility] [place] [address] 11/10/2024 10:00 AM EST Office Visit Vascular Surgery at [place] [phone] Dai Whitman APRN 11/21/2024 2:15 PM EST Office Visit [place] [phone] Dayanara Grover MD [facility] [place] [address] documented as of this encounter Visit Diagnoses Not on filedocumented in this encounter Care Teams Housekeeping Aide Relationship Specialty Start Date End Date Charles Romero PA [facility] [facility] [address] PCP - General Internal Medicine 09/18/24 documented as of this encounter
--- OUTSIDE RECORDS SUMMARY | 2024-10-31 16:57 | XMS_ITS | Encounter Summary ---
Author Organization Formerly [facility] [place] [address] Care Team Providers Care Vice President Network Development Name Role Phone Charles Romero Primary Care Provider + Reason for Visit * Auth/Cert (Routine) Specialty Diagnoses / Procedures Referred By William moses Referred To Contact Diagnoses Vascular graft infection, initial encounter Sepsis [A41.9] T82.7XXA Procedures EMERGENCY IPI Angel Gonsalez MD [facility] [place] [address] [facility] Referral ID Status Reason Start Date Expiration Date Visits Re quested Visits Authorized [id number] 1 1 Encounter Details Date Type Department Care Team (Late st Contact Info) Description 10/02/2024 1:24 PM EST Anesthesia [place] [address] Kodi Richardson MD [facility] AN[place]HESIOLOGY [place] [address] Anesthesia Record Procedure Summary Procedure Name Responsible [...] questions and acknowledgement of understanding Marko Mckeon, PIANO MAKER 1424 Break/Relief Out 1454 Extubation/LMA Out 1458 [...] Left ; groin 09/26/24 1650 by Candie aTtum RN Incision 09/26/24; 1700; Left , medial, [...] by Liana Mccormack RN PIV 09/26/24; 1200; irdq-acw-vwooso catheter system; 18 gauge; median cubital vein [...] catheter; hydrophilic coated, latex; 14; inserted at [facility]; 1; 5; 10; none; drainage bag; [...] (15F round drain with bulb); removed by [employer]LE BUSINESS ANALYST; 10/09/24; 1000 10/02/24 1424 by Guanako Liao [...] drink = 0.6 oz pur e alcohol) [facility] Utilities Answer Date Recorded In the [...] Procedure Summary Date: 10/02/24 Room / Location: [facility] OR [facility] MAIN OR Anesthesia Start: 1324 Anesthesia Stop: 1502 Procedure: DEBRIDEMENT SKIN, SUBCU, MUSCLE, LOWER EXTREMITY (WRVU 2.7) (Left) Diagnosis: (Infected LLE graft explant) Surgeons: Hermila Mccormick MD Responsible Provider: Kodi Richardson MD Anesthesia Type: general ASA Status: 4 All Anesthesia Providers: Anesthesiologist: Kodi Richardson MD PIANO MAKER: Dai Delgadillo CRNA Vitals Value Taken Time BP 145/89 10/02/24 1559 Temp 37.3 ??C (99.1 ??F) 10/02/24 1600 Pulse 80 10/02/24 1600 Resp 12 10/02/24 1600 SpO2 96 % 10/02/24 1559 Pain Level 0 10/02/24 1600 Vitals shown include unfiled device data. Patient Location: PACU/[facility] Level of Consciousness: Awake and Alert [...] [facility] MAIN OR PRO BYPASS GRAFT OTHR, FEM-TIBIAL Left 08/01/2024 @BYPASS GRAFT, FEM-ANT TIBIAL, -POST TIBIAL, -PERONEAL, -DP W\ SYNTHETIC CONDUIT (WRVU 23.66) performed by Lisette Maldonado MD at [facility] MAIN OR PRO CABG, ARTERY-VEIN, SINGLE 01/04/2012 @CABG, VENOUS & ARTERIAL GRAFT;SINGLE VEIN GRAFT performed by INNA TOVAR at [facility] MAIN OR PRO DEBRIDEMENT MUSCLE AND FASCIA 20 SQ CM/< Left 09/29/2024 DEBRIDEMENT SKIN, SUBCU, MUSCLE, LOWER EXTREMITY (WRVU 2.7) performed by Taylor Ruiz MD at [facility] MAIN OR PRO DEBRIDEMENT SUBCUTANEOUS TISSUE 20 SQCM/< Left 09/27/2024 DEBRIDEMENT SKIN AND SUBCU, LOWER EXTREMITY (WRVU 1.01) performed by Hayley Torres MD at [facility] MAIN OR PRO DRAIN LOWER LEG DEEP ABSC/HEMATOMA Left 09/26/2024 INCISION & DRAINAGE, LEG OR ANKLE, DEEP ABSCESS OR HEMATOMA (WRVU 5.23) performed by Hayley Torres MD at [facility] OR [facility] ENDOSCOPY W/VIDEO-ASST VEIN HARVEST, CABG 01/04/2012 ENDOSCOPIC HARVEST VEIN(S) FOR CABG performed by INNA TOVAR at [facility] MAIN OR PRO EXCISION, INFEC GRAFT, EXTREMITY Left 09/26/2024 EXCISION OF INFECTED GRAFT FROM LOWER EXTREMITY (WRVU 9.53) performed by Hayley Torres MD at [facility] OR PRO EXCISION, INFEC GRAFT, EXTREMITY Left 09/28/2024 EXCISION OF INFECTED GRAFT FROM LOWER EXTREMITY (WRVU 9.53) performed by Hayley Torres MD at [facility] MAIN OR PRO EXPLORATION NOT FOLLOWED BY SURG LOWER EXTREMITY ARTERY Left 09/29/2024 @EXPLORATION W\O SURGICAL REPAIR, FEMORAL ARTERY - JENNIFER (WRVU 7.5) performed by Taylor Ruiz MD at [facility] MAIN OR PRO FORM SKIN PEDICLE FLAP SCALP, ARM, LEG 09/28/2024 FLAP, PEDICLE,W OR W/O TRANSFER, LEGS (WRVU 10.12) performed by Hayley Torres MD at [facility] MAIN OR PRO I&D DEEP ABSCESS BURSA/HEMATOMA THIGH/KNEE REGION Left 09/26/2024 INCISION & DRAINAGE ABSCESS OR HEMATOMA, THIGH, KNEE SUPERFICIAL (WRVU 6.78) performed by Hayley Torres MD at [facility] MAIN OR PRO REVISION FEMORAL ANAST BPG GROIN OPEN W/NONAUTOG PATCH GRAFT Left 09/28/2024 REV. FEM. ANASTOMOSIS OF SYN. BYPASS GRAFT USING NONAUTOGENOUS PATCH ANGIOPLASTY-JENNIFER (WRVU 23.15) performed by Hayley Torres MD at [facility] MAIN OR PRO UNLISTED PROCEDURE VASCULAR SURGERY Left 09/28/2024 HARVEST SAPHENOUS VEIN (WRVU 13.24) performed by Hayley Torres MD at [facility] MAIN OR VS ARTERIOGRAM LOWER EXTREMITY VASCULAR SURGERY 07/20/2024 VS Arteriogram Lower Extremity Vascular Surgery 07/20/2024 Taylor Ruiz MD [facility] INTERVENTIONL RAD Social History Tobacco Use [...] with patient. Plan discussed with attending and PIANO MAKER. Anesthesia Screening documented in this encounter Plan of Treatment Upcoming Encounters Date Type Department Care Team (Late st Contact Info) Description 11/09/2024 1:30 PM EST Office [place] [phone] Isabela Hayward, [employer]LE BUSINESS ANALYST [facility] INF[place]IOUS [place] [address] 11/10/2024 10:00 AM EST Office [place] [phone] Dai Whitman, [employer]LE BUSINESS ANALYST 11/21/2024 2:15 PM EST Office [place] [phone] Dayanara Grover MD [facility] [place]Y [place] [address] documented as of this encounter Visit Diagnoses [...] mg documented in this encounter Care Teams Vice President Network Development Relationship Specialty Start Date End Date Charles Romero [place] [address] PCP - General Internal Medicine 09/18/24 documented as of this encounter
--- OUTSIDE RECORDS SUMMARY | 2024-10-31 16:59 | XMS_ITS | Encounter Summary ---
Author Organization [facility] [address] Care Team Providers Care Electrostatic Painter Name Role Phone Charles Romero Primary Care Provider + Reason for Visit * Auth/Cert (Routine) Specialty Diagnoses / Procedures Referred By William moses Referred To Contact Diagnoses Vascular graft infection, initial encounter Sepsis [A41.9] T82.7XXA Procedures EMERGENCY IPI Angel Gonsalez MD [facility] [place] [address] [facility] Referral ID Status Reason Start Date Expiration Date Visits Re quested Visits Authorized [id number] 1 1 Encounter Details Date Type Department Care Team (Late st Contact Info) Description 10/02/2024 1:14 PM EST - 10/02/2024 2:48 PM EST Surgery [place] [address] Hermila Mccormick MD [facility] [place] [address] DEBRIDEMENT SKIN, SUBCU, MUSCLE, LOWER EXTREMITY (WRVU [...] Operations/Major Procedures: 09/26/24: Explant of infected LEFT NEUROLOGY PHYSICIAN to below-knee popliteal artery PTFE bypass graft [...] 2nd toe amputation who was transferred from [facility] given concern for infected left fem-BK popliteal [...] pericardial patch and PTFE willard over the NEUROLOGY PHYSICIAN was unincorporated. - Resection of prior femoral [...] 2 tablespoons of dried fruit. Milk and cj-yigxj-xbcom yogurt have 15 grams of carbs in a serving. A serving is 1 cup of milk or 3/4 cup (6 oz) of oh-wekxs-vhcls yogurt. Starchy vegetables have 15 grams of carbs in a serving. A serving is ?? cup of mashed potatoes or sweet potato; 1 cup winter squash; ?? of a small baked potato; ?? cup of cooked beans; or ?? cup cooked corn or green peas. Learn how much carbs to eat each day and at each meal. A dietitian or certified caregiver can teach you how to keep track [...] was scheduled for a f/u nutrition evaluation. Coring Machine Operator met pt at bedside. Pt sharedthat [...] Based on current findings- home (sister & syozngg-se-hld's home) Consult Recommendations: No other consults recommended [...] Loss: None Karolyn Hudson MD Vascular Surgery, 0079 10/09/24 Important Studies and Lab Data: Labs: [...] 05/29/2024, no significant changes. Procedure Limited - 19028. Doppler - 94284. Color Doppler - 60075. Suboptimal quality. This study is limited because [...] series 3, image 8 and 641, 002, 867, 292. No other rim-enhancing fluid collection is seen. [...] PM Isabela Hayward APRN Infectious Disease at [facility] Arrive at: Home [phone] To view instructions for your video visit, click here, or visit this website: [email or web address] If you have not previously downloaded the [facility] patient portal software, [employer], please do so by clicking one of the links below or searching in your device's lobito store. 27 bards devices 11/09/2024 1:30 PM Isabela Hayward APRN Infectious Disease at [facility] Arrive at: Retrofit Installer Area [phone] 11/21/2024 2:15 PM Dayanara Grover MD Endocrinology at [facility] Arrive at: Retrofit Installer Area 3A [phone] Future Orders Complete By Expires CBC (with Diff) [BWV907 Custom] 10/17/2024 12/11/2024 Process Instructions: INCLUDES: WBC, RBC, Hgb, Hct, Platelets, RBC Indices and Differential Scheduling Instructions: Comments: Questions: OPAT: Order / Recommendation for Post Discharge IV Antibiotic Management [ASQ521 CPT(R)] As directed Process Instructions: If no progress note charted, please enter Clinical details in comments. Scheduling Instructions: Comments: - If this order was signed greater than 72 hours prior to [facility] discharge, please call to confirm the accuracy of this order. Please [facility]ax all results to: [facility], [place] [address] FAX: - After hours, please contact the Infectious Disease Physician on air director at . - Line care instructions - see flush/heparin orders. Facilities may follow organizational policies/practices regarding heparin. - FDC for medication administration/stevedoring supervisor and catheter care/maintenance authorized. - CVC/PICC Dressing Change weekly and PRN Please use CHG or Bio Patch RN: Please care for PICC line including dressing changes weekly and prn. Please draw labs every Wednesday and PRN and fax results to [facility] at [phone]. Please draw labs off PICC line. [facility]. Please RN visit for IV ABX teaching and ongoing assessment. Shelter for Medication Administration/Hookup and catheter care/maintenance: - [...] Amaya Hernandez MD Referral for Outpatient Antibiotics [YPI9457 CPT(R)] As directed Process Instructions: Scheduling Instructions: [...] Jr. for admission to Home Health. [address] [facility] [address] Phone Number: [phone] (home) Date of : 1975 Inpatient DOCUMENTATION FOR VNA SERVICES (INCLUDING THOSE PATIENTS WITH MEDICARE COVERAGE REQUIRING HOME VNA SERVICES AND/OR HOSPICE SERVICES) PATIENT'S LOCATION: Geovanna Dixon Jr. [address] [facility] [address] [phone] (home) Cell: Telephone Information: Tech Intern's Name: Geovanna In discussion with the attending physician, it is certified that this patient is under their care and that they, or a Nurse Practitioner, Clinical Nurse specialist or Physician Design Teacher who is working directly with them, had [...] for managing ADLs. HOME HEALTH CARE AGENCY: [facility]. [address] [place] [address] START OF CARE: within 24-48 hours of discharge Patient has Medicare Please note that any additional orders needs or changes will need to be obtained from this patient's PCP: JUSTIN Roberson [address] [facility] [address] . All VNA agencies which cover the area of patient's residence have been reviewed, either verbally or in writing, andpatient/family have chosen the home health care agency noted. Questions: Disciplines Requested: Nursing Physical Therapy Occupational Therapy Recurring Lab Work Interval Expires CBC (with Diff) [[id number] Custom] Once a week until 12/10/2024 12/10/2024 [...] For any problems or questions please call [phone] For issues on weeknights after 5pm and weekends please call [phone] and ask for the Vascular Fellow on air director. Discharge Medications: Your Medications New Medications Dose [...] can get this completed at 3L at [facility] prior to your scheduled appointment. Stop atorvastatin [...] For any problems or questions please call [phone] For issues on weeknights after 5pm and weekends please call [phone] and ask for the Vascular Fellow on air director. documented in this encounter Discharge Instructions * [...] 2 tablespoons of dried fruit. Milk and nf-kqoiu-whzar yogurt have 15 grams of carbs in a serving. A serving is 1 cup of milk or 3/4 cup (6 oz) of ao-ywyfe-ymjcf yogurt. Starchy vegetables have 15 grams of carbs in a serving. A serving is ?? cup of mashed potatoes or sweet potato; 1 cup winter squash; ?? of a small baked potato; ?? cup of cooked beans; or ?? cup cooked corn or green peas. Learn how much carbs to eat each day and at each meal. A dietitian or certified caregiver can teach you how to keep track [...] can get this completed at 3L at [facility] prior to your scheduled appointment. Stop atorvastatin [...] For any problems or questions please call [phone] For issues on weeknights after 5pm and weekends please call [phone] and ask for the Vascular Fellow on air director. documented in this encounter Medications at Time [...] to contact. Reviewed roles and responsibilities of ENGINEERING AND SCIENTIFIC PROGRAMMER and infusion vendor. Contact information for ID and Vascular team/clinic, ENGINEERING AND SCIENTIFIC PROGRAMMER and infusion vendor given to pt. Discussed f/u appointments in ID 5C clinic, telephone and tele health. Pt verbalized understanding. All questions answered. IV & PO ABX Medications: Daptomycin 700mg IV daily Start/anticipated end date: 10/10/24-11/10/24 ENGINEERING AND SCIENTIFIC PROGRAMMER: Bao Infusion vendor: [facility] IV Access: 4 Fr. [...] 2 tablespoons of dried fruit. Milk and bl-wofie-rjrjo yogurt have 15 grams of carbs in a serving. A serving is 1 cup of milk or 3/4 cup (6 oz) of rj-mlgnp-sqray yogurt. Starchy vegetables have 15 grams of carbs in a serving. A serving is ?? cup of mashed potatoes or sweet potato; 1 cup winter squash; ?? of a small baked potato; ?? cup of cooked beans; or ?? cup cooked corn or green peas. Learn how much carbs to eat each day and at each meal. A dietitian or certified caregiver can teach you how to keep track [...] this time. OT to complete orders. Pager: [phone] Fabián Burrows OT 10/09/2024 Occupational Therapy Rehabilitation [...] Loss: None Karolyn Hudson MD Vascular Surgery, 9964 10/09/24 * Terry Jimenez, PT - 10/09/2024 12:02 PM EST Physical Therapy Visit #2 Patient profile: Geovanna Dixon Jr. is a 49 y.o. male with a history of HTN, HLD, NSTEMI, CAD s/p CABG (12/2011), DM,obesity, PAD s/p L iliofem endart and L fem-BK pop bypass and L 2nd toe amputation who was transferred from [facility], 09/26/24 given concern for infected left fem-BK popliteal PTFE bypass. He is now s/p an explant of an infected left femoral-below knee popliteal artery bypass graft (09/26), I/D groin abscess (09/27), L GSV harvest, vein patch angioplasty, L NEUROLOGY PHYSICIAN and BK pop w/ sartorius flap L fem, I/D, 09/29 L sartorius flap revision, vac change. 10/03/24 NPO at [facility] for OR wound exploration. Wound vac off [...] He mentions he'll stay with sister and rgomzlg-lq-mph upon DC. Pt resting in bed upon [...] up with R and down with L, [id number]-hg-nrjv. Balance: Sitting: NORMAL- EOB unsupported good postural [...] Based on current findings- home (sister & bdpgrcj-gs-hdl's home) Consult Recommendations: No other consults recommended [...] 15 (TE-F) minutes TERRY JIMENEZ PT Pager: [phone] Physical Therapy Inpatient Rehabilitation Department * María [...] 2nd toe amputation who was transferred from [facility] given concern for infected left fem-BK popliteal [...] smoking 1 week ago. He presented to [facility] on 09/26 and went to the OR [...] (porcine) 5,000 Units Subcutaneous Q8H [facility] lidocaine 1 patch Transdermal Q24H Operations this [...] Procedure Component Value - Date/Time Blood culture [[id number]] (Abnormal) (Susceptibility) Collected: 09/26/24 1422 Lab Status: Edited Result - FINAL Specimen: Blood, Venous Updated: 10/07/24 0740 Blood Culture Methicillin Resistant Staphylococcus aureus Comment: detected by PCR Isolate saved. If future testing is required, contact the Microbiology Quality Control. Gram Stain Aerobic Bottle: Gram positive cocci in clusters Susceptibility Methicillin Resistant Staphylococcus aureus MINIMUM INHIBITORY CONCENTRATION VITEK 2 METHOD Clindamycin Resistant Daptomycin Susceptible Gentamicin Susceptible [1] Linezolid Susceptible Oxacillin Resistant Trimethoprim/Sulfa Susceptible Vancomycin Susceptible [1] Gentamicin is not appropriate for monotherapy for gram-positive infections. AFB culture [[id number]] Collected: 09/27/24 1654 Lab Status: Preliminary result Specimen: Tissue from Thigh, Left Updated: 10/05/24 1201 Acid Fast Bacilli Culture No acid fast bacilli isolated at 1 week. Acid Fast Stain No acid fast bacilli seen Blood culture [[id number]] Collected: 09/29/242123 Lab Status: Final result Specimen: Blood, Venous Updated: 10/04/24 2301 Blood Culture No growth at 120 hours Blood culture [[id number]] Collected: 09/29/242123 Lab Status: Final result Specimen: Blood, Venous Updated: 10/04/24 2301 Blood Culture No growth at 120 hours AFB culture [[id number]] Collected: 09/26/24 1702 Lab Status: Preliminary result Specimen: Abscess from Knee, Left Updated: 10/04/24 1201 Acid Fast Bacilli Culture No acid fast bacilli isolated at 1 week. Acid Fast Stain No acid fast bacilli seen Blood culture [[id number]] Collected: 09/28/24 1749 Lab Status: Final result [...] 2nd toe amputation who was transferred from [facility] given concern for infected left fem-BK popliteal PTFE bypass. He is now s/p an explantof an infected left femoral-below knee popliteal artery bypass graft (09/26), I/D groin abscess (), L GSV harvest, vein patch angioplasty, L NEUROLOGY PHYSICIAN and BK pop w/ sartorius flap L fem, I/D, 09/29 L sartorius flap revision, vac change. 10/09/24: Progressing well post surgically. Will pull medial thigh drain today, retain sartorius flap drain along with wound vac x 3 sponges ([facility] has approved for home vac) and [...] PRN PICC dressing change completed as per [facility] protocol. Positive pressure displacement connector (Max Plus) [...] 2nd toe amputation who was transferred from [facility] given concern for infected left fem-BK popliteal [...] smoking 1 week ago. He presented to [facility] on 09/26 and went to the OR [...] Procedure Component Value - Date/Time Blood culture [[id number]] (Abnormal) (Susceptibility) Collected: 09/26/24 1422 Lab Status: Edited Result - FINAL Specimen: Blood, Venous Updated: 10/07/24 0740 Blood Culture Methicillin Resistant Staphylococcus aureus Comment: detected by PCR Isolate saved. If future testing is required, contact the Microbiology Quality Control. Gram Stain Aerobic Bottle: Gram positive cocci in clusters Susceptibility Methicillin Resistant Staphylococcus aureus MINIMUM INHIBITORY CONCENTRATION VITEK 2 METHOD Clindamycin Resistant Daptomycin Susceptible Gentamicin Susceptible [1] Linezolid Susceptible Oxacillin Resistant Trimethoprim/Sulfa Susceptible Vancomycin Susceptible [1] Gentamicin is not appropriate for monotherapy for gram-positive infections. AFB culture [[id number]] Collected: 09/27/24 165 Lab Status: Preliminary result Specimen: Tissue from Thigh, Left Updated: 10/05/24 1201 Acid Fast Bacilli Culture No acid fast bacilli isolated at 1 week. Acid Fast Stain No acid fast bacilli seen Blood culture [[id number]] Collected: 09/29/242123 Lab Status: Final result Specimen: Blood, Venous Updated: 10/04/24 2301 Blood Culture No growth at 120 hours Blood culture [[id number]] Collected: 09/29/242123 Lab Status: Final result Specimen: Blood, Venous Updated: 10/04/24 2301 Blood Culture No growth at 120 hours AFB culture [[id number]] Collected: 09/26/24 1702 Lab Status: Preliminary result Specimen: Abscess from Knee, Left Updated: 10/04/24 1201 Acid Fast Bacilli Culture No acid fast bacilli isolated at 1 week. Acid Fast Stain No acid fast bacilli seen Blood culture [[id number]] Collected: 09/28/24 1749 Lab Status: Final result Specimen: Blood, Venous Updated: 10/03/24 1901 Blood Culture No growth at 120 hours Blood culture [[id number]] (Abnormal) Collected: 09/27/24 2133 Lab Status: Final result Specimen: Blood, Venous Updated: 10/02/24 0804 Blood Culture Methicillin Resistant Staphylococcus aureus Comment: Susceptibilities previously reported. Gram Stain Aerobic Bottle: Gram positive cocci in clusters Tissue Culture, Aerobic & Anaerobic [[id number]] Collected: 09/27/241653 Lab Status: Final result Specimen: Tissue from Thigh, Left Updated: 10/01/24 1554 Narrative: The following orders were created for panel order Tissue Culture, Aerobic & Anaerobic. Procedure Abnormality Status --------- ------ Tissue Culture, Aerobic ...[[id number]] Anaerobic Culture[[id number]] Final result Please view results for these tests on the individual orders. Anaerobic Culture [[id number]] Collected: 09/27/241653 Lab Status: Final result Specimen: Tissue from Thigh, Left Updated: 10/01/24 1554 Anaerobic Culture No anaerobic organisms isolated Tissue Culture, Aerobic Only [[id number]] (Abnormal) (Susceptibility) Collected: 09/27/241653 Lab Status: Final [...] 2nd toe amputation who was transferred from [facility] given concern for infected left fem-BK popliteal PTFE bypass. He is now s/p an explantof an infected left femoral-below knee popliteal artery bypass graft (09/26), I/D groin abscess (), L GSV harvest, vein patch angioplasty, L NEUROLOGY PHYSICIAN and BK pop w/ sartorius flap L [...] 81mg daily Vibha Benson APRN 10/08/2024 Pager: [phone] * Vibha Benson APRN - 10/07/2024 8:52 AM EST Images from the original note were not included. Vascular Surgery Progress Note Geovanna Dixon Jr. is a 49 y.o. male with history of HTN, HLD, NSTEMI, CAD s/p CABG (12/2011), DM, obesity, PAD s/p L iliofem endart and L fem-BK pop bypass and L 2nd toe amputation who was transferred from [facility] given concern for infected left fem-BK popliteal [...] smoking 1 week ago. He presented to [facility] on 09/26 and went to the OR [...] Procedure Component Value - Date/Time Blood culture [[id number]] (Abnormal) (Susceptibility) Collected: 09/26/24 1422 Lab Status: Edited Result - FINAL Specimen: Blood, Venous Updated: 10/07/24 0740 Blood Culture Methicillin Resistant Staphylococcus aureus Comment: detected by PCR Isolate saved. If future testing is required, contact the Microbiology Quality Control. Gram Stain Aerobic Bottle: Gram positive cocci in clusters Susceptibility Methicillin Resistant Staphylococcus aureus MINIMUM INHIBITORY CONCENTRATION VITEK 2 METHOD Clindamycin Resistant Daptomycin Susceptible Gentamicin Susceptible [1] Linezolid Susceptible Oxacillin Resistant Trimethoprim/Sulfa Susceptible Vancomycin Susceptible [1] Gentamicin is not appropriate for monotherapy for gram-positive infections. AFB culture [[id number]] Collected: 09/27/24 1654 Lab Status: Preliminary result Specimen: Tissue from Thigh, Left Updated: 10/05/24 1201 Acid Fast Bacilli Culture No acid fast bacilli isolated at 1 week. Acid Fast Stain No acid fast bacilli seen Blood culture [[id number]] Collected: 09/29/242123 Lab Status: Final result Specimen: Blood, Venous Updated: 10/04/24 2301 Blood Culture No growth at 120 hours Blood culture [[id number]] Collected: 09/29/242123 Lab Status: Final result Specimen: Blood, Venous Updated: 10/04/24 2301 Blood Culture No growth at 120 hours AFB culture [[id number]] Collected: 09/26/24 1702 Lab Status: Preliminary result Specimen: Abscess from Knee, Left Updated: 10/04/24 1201 Acid Fast Bacilli Culture No acid fast bacilli isolated at 1 week. Acid Fast Stain No acid fast bacilli seen Blood culture [[id number]] Collected: 09/28/24 1749 Lab Status: Final result Specimen: Blood, Venous Updated: 10/03/24 1901 Blood Culture No growth at 120 hours Blood culture [[id number]] (Abnormal) Collected: 09/27/24 2133 Lab Status: Final result Specimen: Blood, Venous Updated: 10/02/24 0804 Blood Culture Methicillin Resistant Staphylococcus aureus Comment: Susceptibilities previously reported. Gram Stain Aerobic Bottle: Gram positive cocci in clusters Tissue Culture, Aerobic & Anaerobic [[id number]] Collected: 09/27/24 165 Lab Status: Final result Specimen: Tissue from Thigh, Left Updated: 10/01/24 1554 Narrative: The following orders were created for panel order Tissue Culture, Aerobic & Anaerobic. Procedure Abnormality Status --------- ------ Tissue Culture, Aerobic ...[[id number]] Anaerobic Culture[[id number]] Final result Please view results for these tests on the individual orders. Anaerobic Culture [[id number]] Collected: 09/27/24 165 Lab Status: Final result Specimen: Tissue from Thigh, Left Updated: 10/01/24 1554 Anaerobic Culture No anaerobic organisms isolated Tissue Culture, Aerobic Only [[id number]] (Abnormal) (Susceptibility) Collected: 09/27/24 165 Lab Status: [...] is considered susceptible to doxycycline. Blood culture [[id number]] (Abnormal) Collected: 09/26/24 1845 Lab Status: Final result Specimen: Blood, Venous Updated: 10/01/24 0658 Blood Culture Methicillin Resistant Staphylococcus aureus Comment: isolated. Susceptibilities previously reported. Gram Stain Aerobic Bottle: Gram positive cocci in clusters Abscess/Wound Aspirate Culture, Aerobic & Anaerobic [[id number]] (Abnormal) Collected: 09/26/241649 Lab Status: Final result Specimen: Abscess from Groin, Left Updated: 09/30/24 155 Narrative: The following orders were created for panel order Abscess/Wound Aspirate Culture, Aerobic & Anaerobic. Procedure Abnormality Status --------- ------ Abscess/Wound Aspirate C...[[id number]] Abnormal Final result Anaerobic Culture[[id number]] Final result Please view results for these tests on the individual orders. Anaerobic Culture [[id number]] Collected: 09/26/24 165 Lab Status: Final result Specimen: Abscess from Groin, Left Updated: 09/30/24 1551 Anaerobic Culture No anaerobic organisms isolated Abscess/Wound Aspirate Culture, Aerobic & Anaerobic [[id number]] (Abnormal) Collected: 09/26/24 1702 Lab Status: Final result Specimen: Abscess from Knee, Left Updated: 09/30/24 1551 Narrative: The following orders were created for panel order Abscess/Wound Aspirate Culture, Aerobic & Anaerobic. Procedure Abnormality Status --------- ------ Abscess/Wound Aspirate C...[[id number]] Abnormal Final result Anaerobic Culture[[id number]] Final result Please view results for these tests on the individual orders. Anaerobic Culture [[id number]] Collected: 09/26/24 1702 Lab Status: Final result Specimen: Abscess from Knee, Left Updated: 09/30/24 1551 Anaerobic Culture No anaerobic organisms isolated Sonicated Tissue/Implant Culture [[id number]] (Abnormal) Collected: 09/26/24 1716 Lab Status: Final result Specimen: Vascular Graft from Leg, Left Updated: 09/30/24 1349 Sonicated Tissue/Implant Culture Methicillin Resistant Staphylococcus aureus Comment: isolated from broth culture. Susceptibilities previously reported. Abscess/Wound Aspirate Culture, Aerobic Only [[id number]] (Abnormal) (Susceptibility) Collected: 09/26/24 1702 Lab Status: [...] to doxycycline. Abscess/Wound Aspirate Culture, Aerobic Only [[id number]] (Abnormal) (Susceptibility) Collected: 09/26/24 1650 Lab Status: [...] 2nd toe amputation who was transferred from [facility] given concern for infected left fem-BK popliteal PTFE bypass. He is now s/p an explantof an infected left femoral-below knee popliteal artery bypass graft (09/26), I/D groin abscess (), L GSV harvest, vein patch angioplasty, L NEUROLOGY PHYSICIAN and BK pop w/ sartorius flap L [...] 81mg daily Vibha Benson APRN 10/07/2024 Pager: [phone] * Karina-Jessica Mcrae, PT - 10/06/2024 3:21 PM EST 10/06/24 2547 Evaluation & Treatment Document Type contact Comment, [...] 2nd toe amputation who was transferred from [facility] given concern for infected left fem-BK popliteal [...] smoking 1 week ago. He presented to [facility] on 09/26 and went to the OR [...] Procedure Component Value - Date/Time AFB culture [[id number]] Collected: 09/27/241653 Lab Status: Preliminary result Specimen: Tissue from Thigh, Left Updated: 10/05/24 1201 Acid Fast Bacilli Culture No acid fast bacilli isolated at 1 week. Acid Fast Stain No acid fast bacilli seen Blood culture [[id number]] Collected: 09/29/242123 Lab Status: Final result Specimen: Blood, Venous Updated: 10/04/24 2301 Blood Culture No growth at 120 hours Blood culture [[id number]] Collected: 09/29/242123 Lab Status: Final result Specimen: Blood, Venous Updated: 10/04/24 2301 Blood Culture No growth at 120 hours AFB culture [[id number]] Collected: 09/26/24 170 Lab Status: Preliminary result Specimen: Abscess from Knee, Left Updated: 10/04/24 1201 Acid Fast Bacilli Culture No acid fast bacilli isolated at 1 week. Acid Fast Stain No acid fast bacilli seen Blood culture [[id number]] Collected: 09/28/24 1749 Lab Status: Final result Specimen: Blood, Venous Updated: 10/03/24 1901 Blood Culture No growth at 120 hours Blood culture [[id number]] (Abnormal) Collected: 09/27/242132 Lab Status: Final result Specimen: Blood, Venous Updated: 10/02/24 0804 Blood Culture Methicillin Resistant Staphylococcus aureus Comment: Susceptibilities previously reported. Gram Stain Aerobic Bottle: Gram positive cocci in clusters Tissue Culture, Aerobic & Anaerobic [[id number]] Collected: 09/27/241653 Lab Status: Final result Specimen: Tissue from Thigh, Left Updated: 10/01/24 1554 Narrative: The following orders were created for panel order Tissue Culture, Aerobic & Anaerobic. Procedure Abnormality Status --------- ------ Tissue Culture, Aerobic ...[[id number]] Anaerobic Culture[[id number]] Final result Please view results for these tests on the individual orders. Anaerobic Culture [[id number]] Collected: 09/27/241653 Lab Status: Final result Specimen: Tissue from Thigh, Left Updated: 10/01/24 1554 Anaerobic Culture No anaerobic organisms isolated Tissue Culture, Aerobic Only [[id number]] (Abnormal) (Susceptibility) Collected: 09/27/24 1654 Lab Status: [...] is considered susceptible to doxycycline. Blood culture [[id number]] (Abnormal) (Susceptibility) Collected: 09/26/24 1422 Lab Status: Edited Specimen: Blood, Venous Updated: 10/01/24 0658 Blood Culture Methicillin Resistant Staphylococcus aureus Comment: detected by PCR Isolate saved. If future testing is required, contact the Microbiology Quality Control. Gram Stain Aerobic Bottle: Gram positive cocci in clusters Susceptibility Methicillin Resistant Staphylococcus aureus VITEK 2 METHOD Clindamycin Resistant Gentamicin Susceptible [1] Linezolid Susceptible Oxacillin Resistant Trimethoprim/Sulfa Susceptible Vancomycin Susceptible [1] Gentamicin is not appropriate for monotherapy for gram-positive infections. Blood culture [[id number]] (Abnormal) Collected: 09/26/24 1845 Lab Status: Final result Specimen: Blood, Venous Updated: 10/01/24 0658 Blood Culture Methicillin Resistant Staphylococcus aureus Comment: isolated. Susceptibilities previously reported. Gram Stain Aerobic Bottle: Gram positive cocci in clusters Abscess/Wound Aspirate Culture, Aerobic & Anaerobic [[id number]] (Abnormal) Collected: 09/26/24 165 Lab Status: Final result Specimen: Abscess from Groin, Left Updated: 09/30/24 1551 Narrative: The following orders were created for panel order Abscess/Wound Aspirate Culture, Aerobic & Anaerobic. Procedure Abnormality Status --------- ------ Abscess/Wound Aspirate C...[[id number]] Abnormal Final result Anaerobic Culture[[id number]] Final result Please view results for these tests on the individual orders. Anaerobic Culture [[id number]] Collected: 09/26/24 165 Lab Status: Final result Specimen: Abscess from Groin, Left Updated: 09/30/24 1551 Anaerobic Culture No anaerobic organisms isolated Abscess/Wound Aspirate Culture, Aerobic & Anaerobic [[id number]] (Abnormal) Collected: 09/26/24 170 Lab Status: Final result Specimen: Abscess from Knee, Left Updated: 09/30/24 1551 Narrative: The following orders were created for panel order Abscess/Wound Aspirate Culture, Aerobic & Anaerobic. Procedure Abnormality Status --------- ------ Abscess/Wound Aspirate C...[[id number]] Abnormal Final result Anaerobic Culture[[id number]] Final result Please view results for these tests on the individual orders. Anaerobic Culture [[id number]] Collected: 09/26/24 170 Lab Status: Final result Specimen: Abscess from Knee, Left Updated: 09/30/24 1551 Anaerobic Culture No anaerobic organisms isolated Sonicated Tissue/Implant Culture [[id number]] (Abnormal) Collected: 09/26/24 1716 Lab Status: Final result Specimen: Vascular Graft from Leg, Left Updated: 09/30/24 1349 Sonicated Tissue/Implant Culture Methicillin Resistant Staphylococcus aureus Comment: isolated from broth culture. Susceptibilities previously reported. Abscess/Wound Aspirate Culture, Aerobic Only [[id number]] (Abnormal) (Susceptibility) Collected: 09/26/24 170 Lab Status: [...] to doxycycline. Abscess/Wound Aspirate Culture, Aerobic Only [[id number]] (Abnormal) (Susceptibility) Collected: 09/26/24 1650 Lab Status: [...] 2nd toe amputation who was transferred from [facility] given concern for infected left fem-BK popliteal PTFE bypass. He is now s/p an explantof an infected left femoral-below knee popliteal artery bypass graft (09/26), I/D groin abscess (), L GSV harvest, vein patch angioplasty, L NEUROLOGY PHYSICIAN and BK pop w/ sartorius flap L [...] 81mg daily Benjamin Iniguez MD 10/06/2024 Pager: [phone] * Benjamin Iniguez MD - 10/05/2024 7:42 AM EST Images from the original note were not included. Vascular Surgery Progress Note Geovanna Dixon Jr. is a 49 y.o. male with history of HTN, HLD, NSTEMI, CAD s/p CABG (12/2011), DM, obesity, PAD s/p L iliofem endart and L fem-BK pop bypass and L 2nd toe amputation who was transferred from [facility] given concern for infected left fem-BK popliteal [...] smoking 1 week ago. He presented to [facility] on 09/26 and went to the OR [...] lispro 1-6 Units Subcutaneous Q4H [facility] insulin lispro 0-11 Units Subcutaneous TID WC [...] Procedure Component Value - Date/Time Blood culture [[id number]] Collected: 09/29/242123 Lab Status: Final result Specimen: Blood, Venous Updated: 10/04/24 230 Blood Culture No growth at 120 hours Blood culture [[id number]] Collected: 09/29/242123 Lab Status: Final result Specimen: Blood, Venous Updated: 10/04/24 230 Blood Culture No growth at 120 hours AFB culture [[id number]] Collected: 09/26/24 1702 Lab Status: Preliminary result Specimen: Abscess from Knee, Left Updated: 10/04/24 1201 Acid Fast Bacilli Culture No acid fast bacilli isolated at 1 week. Acid Fast Stain No acid fast bacilli seen Blood culture [[id number]] Collected: 09/28/24 1749 Lab Status: Final result Specimen: Blood, Venous Updated: 10/03/24 1901 Blood Culture No growth at 120 hours Blood culture [[id number]] (Abnormal) Collected: 09/27/242132 Lab Status: Final result Specimen: Blood, Venous Updated: 10/02/24 0804 Blood Culture Methicillin Resistant Staphylococcus aureus Comment: Susceptibilities previously reported. Gram Stain Aerobic Bottle: Gram positive cocci in clusters Tissue Culture, Aerobic & Anaerobic [[id number]] Collected: 09/27/241653 Lab Status: Final result Specimen: Tissue from Thigh, Left Updated: 10/01/24 1554 Narrative: The following orders were created for panel order Tissue Culture, Aerobic & Anaerobic. Procedure Abnormality Status --------- ------ Tissue Culture, Aerobic ...[[id number]] Anaerobic Culture[[id number]] Final result Please view results for these tests on the individual orders. Anaerobic Culture [[id number]] Collected: 09/27/241653 Lab Status: Final result Specimen: Tissue from Thigh, Left Updated: 10/01/24 1554 Anaerobic Culture No anaerobic organisms isolated Tissue Culture, Aerobic Only [[id number]] (Abnormal) (Susceptibility) Collected: 09/27/241653 Lab Status: Final [...] is considered susceptible to doxycycline. Blood culture [[id number]] (Abnormal) (Susceptibility) Collected: 09/26/24 1422 Lab Status: Final result Specimen: Blood, Venous Updated: 10/01/24 0658 Blood Culture Methicillin Resistant Staphylococcus aureus Comment: detected by PCR Isolate saved. If future testing is required, contact the Microbiology Quality Control. Gram Stain Aerobic Bottle: Gram positive cocci in clusters Susceptibility Methicillin Resistant Staphylococcus aureus VITEK 2 METHOD Clindamycin Resistant Gentamicin Susceptible [1] Linezolid Susceptible Oxacillin Resistant Trimethoprim/Sulfa Susceptible Vancomycin Susceptible [1] Gentamicin is not appropriate for monotherapy for gram-positive infections. Blood culture [[id number]] (Abnormal) Collected: 09/26/24 1845 Lab Status: Final result Specimen: Blood, Venous Updated: 10/01/24 0658 Blood Culture Methicillin Resistant Staphylococcus aureus Comment: isolated. Susceptibilities previously reported. Gram Stain Aerobic Bottle: Gram positive cocci in clusters Abscess/Wound Aspirate Culture, Aerobic & Anaerobic [[id number]] (Abnormal) Collected: 09/26/241649 Lab Status: Final result Specimen: Abscess from Groin, Left Updated: 09/30/24 1551 Narrative: The following orders were created for panel order Abscess/Wound Aspirate Culture, Aerobic & Anaerobic. Procedure Abnormality Status --------- ------ Abscess/Wound Aspirate C...[[id number]] Abnormal Final result Anaerobic Culture[[id number]] Final result Please view results for these tests on the individual orders. Anaerobic Culture [[id number]] Collected: 09/26/241649 Lab Status: Final result Specimen: Abscess from Groin, Left Updated: 09/30/24 1551 Anaerobic Culture No anaerobic organisms isolated Abscess/Wound Aspirate Culture, Aerobic & Anaerobic [[id number]] (Abnormal) Collected: 09/26/24 170 Lab Status: Final result Specimen: Abscess from Knee, Left Updated: 09/30/24 1551 Narrative: The following orders were created for panel order Abscess/Wound Aspirate Culture, Aerobic & Anaerobic. Procedure Abnormality Status --------- ------ Abscess/Wound Aspirate C...[[id number]] Abnormal Final result Anaerobic Culture[[id number]] Final result Please view results for these tests on the individual orders. Anaerobic Culture [[id number]] Collected: 09/26/24 170 Lab Status: Final result Specimen: Abscess from Knee, Left Updated: 09/30/24 1551 Anaerobic Culture No anaerobic organisms isolated Sonicated Tissue/Implant Culture [[id number]] (Abnormal) Collected: 09/26/24 1716 Lab Status: Final result Specimen: Vascular Graft from Leg, Left Updated: 09/30/24 1349 Sonicated Tissue/Implant Culture Methicillin Resistant Staphylococcus aureus Comment: isolated from broth culture. Susceptibilities previously reported. Abscess/Wound Aspirate Culture, Aerobic Only [[id number]] (Abnormal) (Susceptibility) Collected: 09/26/24 170 Lab Status: [...] to doxycycline. Abscess/Wound Aspirate Culture, Aerobic Only [[id number]] (Abnormal) (Susceptibility) Collected: 09/26/24 165 Lab Status: [...] is considered susceptible to doxycycline. AFB culture [[id number]] Collected: 09/27/241653 Lab Status: Preliminary result Specimen: Tissue from Thigh, Left Updated: 09/29/24 1201 Acid Fast Bacilli Culture No acid fast bacilli isolated to date. Acid Fast Stain No acid fast bacilli seen Fungus culture [[id number]] Collected: 09/27/241653 Lab Status: Preliminary result Specimen: [...] 2nd toe amputation who was transferred from [facility] given concern for infected left fem-BK popliteal PTFE bypass. He is now s/p an explantof an infected left femoral-below knee popliteal artery bypass graft (09/26), I/D groin abscess (), L GSV harvest, vein patch angioplasty, L NEUROLOGY PHYSICIAN and BK pop w/ sartorius flap L [...] 81mg daily Benjamin Iniguez MD 10/05/2024 Pager: [phone] Associated attestation - Hayley Torres MD - [...] male who underwent a left lower extremity daclutd-vq-ecldr-kneepopliteal artery bypass on August 01, 2024, and [...] concerns. Please page ID Green team (pager [phone]) with questions or concerns. Lynne Leavitt MD Fellow, Infectious Disease Pager: [phone] Epic Chat 10/02/2024 This note was created using [employer]) voice recognition software. Associated attestation - Amaya [...] Procedure Component Value - Date/Time Blood culture [[id number]] Collected: 09/29/242123 Lab Status: Final result Specimen: Blood, Venous Updated: 10/04/24 2301 Blood Culture No growth at 120 hours Blood culture [[id number]] Collected: 09/29/242123 Lab Status: Final result Specimen: Blood, Venous Updated: 10/04/24 2301 Blood Culture No growth at 120 hours AFB culture [[id number]] Collected: 09/26/24 170 Lab Status: Preliminary result Specimen: Abscess from Knee, Left Updated: 10/04/24 120 Acid Fast Bacilli Culture No acid fast bacilli isolated at 1 week. Acid Fast Stain No acid fast bacilli seen Blood culture [[id number]] Collected: 09/28/24 174 Lab Status: Final result Specimen: Blood, Venous Updated: 10/03/24 1901 Blood Culture No growth at 120 hours Blood culture [[id number]] (Abnormal) Collected: 09/27/242132 Lab Status: Final result Specimen: Blood, Venous Updated: 10/02/24 0804 Blood Culture Methicillin Resistant Staphylococcus aureus Comment: Susceptibilities previously reported. Gram Stain Aerobic Bottle: Gram positive cocci in clusters Tissue Culture, Aerobic & Anaerobic [[id number]] Collected: 09/27/241653 Lab Status: Final result Specimen: Tissue from Thigh, Left Updated: 10/01/24 155 Narrative: The following orders were created for panel order Tissue Culture, Aerobic & Anaerobic. Procedure Abnormality Status --------- ------ Tissue Culture, Aerobic ...[[id number]] Anaerobic Culture[[id number]] Final result Please view results for these tests on the individual orders. Anaerobic Culture [[id number]] Collected: 09/27/241653 Lab Status: Final result Specimen: Tissue from Thigh, Left Updated: 10/01/24 155 Anaerobic Culture No anaerobic organisms isolated Tissue Culture, Aerobic Only [[id number]] (Abnormal) (Susceptibility) Collected: 11/20/24 1654 Lab Status: [...] is considered susceptible to doxycycline. Blood culture [[id number]] (Abnormal) (Susceptibility) Collected: 09/26/24 1422 Lab Status: Final result Specimen: Blood, Venous Updated: 10/01/24 0658 Blood Culture Methicillin Resistant Staphylococcus aureus Comment: detected by PCR Isolate saved. If future testing is required, contact the Microbiology Quality Control. Gram Stain Aerobic Bottle: Gram positive cocci in clusters Susceptibility Methicillin Resistant Staphylococcus aureus VITEK 2 METHOD Clindamycin >=8.0 ug/ml Resistant Gentamicin <=0.5 ug/ml Susceptible [1] Linezolid 2.0 ug/ml Susceptible Oxacillin >=4.0 ug/ml Resistant Trimethoprim/Sulfa <=10.0 ug/ml Susceptible Vancomycin 1.0 ug/ml Susceptible [1] Gentamicin is not appropriate for monotherapy for gram-positive infections. Blood culture [[id number]] (Abnormal) Collected: 09/26/24 1845 Lab Status: Final result Specimen: Blood, Venous Updated: 10/01/24 0658 Blood Culture Methicillin Resistant Staphylococcus aureus Comment: isolated. Susceptibilities previously reported. Gram Stain Aerobic Bottle: Gram positive cocci in clusters Abscess/Wound Aspirate Culture, Aerobic & Anaerobic [[id number]] (Abnormal) Collected: 09/26/24 1650 Lab Status: Final result Specimen: Abscess from Groin, Left Updated: 09/30/24 1551 Narrative: The following orders were created for panel order Abscess/Wound Aspirate Culture, Aerobic & Anaerobic. Procedure Abnormality Status --------- ------ Abscess/Wound Aspirate C...[[id number]] Abnormal Final result Anaerobic Culture[[id number]] Final result Please view results for these tests on the individual orders. Anaerobic Culture [[id number]] Collected: 09/26/24 1650 Lab Status: Final result Specimen: Abscess from Groin, Left Updated: 09/30/24 1551 Anaerobic Culture No anaerobic organisms isolated Abscess/Wound Aspirate Culture, Aerobic & Anaerobic [[id number]] (Abnormal) Collected: 09/26/24 1702 Lab Status: Final result Specimen: Abscess from Knee, Left Updated: 09/30/24 1551 Narrative: The following orders were created for panel order Abscess/Wound Aspirate Culture, Aerobic & Anaerobic. Procedure Abnormality Status --------- ------ Abscess/Wound Aspirate C...[[id number]] Abnormal Final result Anaerobic Culture[[id number]] Final result Please view results for these tests on the individual orders. Anaerobic Culture [[id number]] Collected: 09/26/24 170 Lab Status: Final result Specimen: Abscess from Knee, Left Updated: 09/30/24 1551 Anaerobic Culture No anaerobic organisms isolated Sonicated Tissue/Implant Culture [[id number]] (Abnormal) Collected: 09/26/24 1716 Lab Status: Final result Specimen: Vascular Graft from Leg, Left Updated: 09/30/24 1349 Sonicated Tissue/Implant Culture Methicillin Resistant Staphylococcus aureus Comment: isolated from broth culture. Susceptibilities previously reported. Abscess/Wound Aspirate Culture, Aerobic Only [[id number]] (Abnormal) (Susceptibility) Collected: 09/26/24 1702 Lab Status: [...] to doxycycline. Abscess/Wound Aspirate Culture, Aerobic Only [[id number]] (Abnormal) (Susceptibility) Collected: 09/26/241649 Lab Status: Final [...] is considered susceptible to doxycycline. AFB culture [[id number]] Collected: 09/27/241653 Lab Status: Preliminary result Specimen: Tissue from Thigh, Left Updated: 09/29/24 1201 Acid Fast Bacilli Culture No acid fast bacilli isolated to date. Acid Fast Stain No acid fast bacilli seen Fungus culture [[id number]] Collected: 09/27/241653 Lab Status: Preliminary result Specimen: [...] for consulting infectious diseases. Amaya Hernandez MD, [facility] Infectious Diseases Staff Physician * [...] Diet NPO Monitoring: Q4 Fawn Cunningham APRN [facility] Endocrinology Diabetes Management Pager [phone] Weekends please page [phone] minutes were spent over the course [...] 2nd toe amputation who was transferred from [facility] given concern for infected left fem-BK popliteal [...] smoking 1 week ago. He presented to [facility] on 09/26 and went to the OR [...] Procedure Component Value - Date/Time Blood culture [[id number]] Collected: 09/29/242123 Lab Status: Preliminary result Specimen: Blood, Venous Updated: 10/03/24 230 Blood Culture No growth at 96 hours Blood culture [[id number]] Collected: 09/29/242123 Lab Status: Preliminary result Specimen: Blood, Venous Updated: 10/03/24 2301 Blood Culture No growth at 96 hours Blood culture [[id number]] Collected: 09/28/24 1749 Lab Status: Final result Specimen: Blood, Venous Updated: 10/03/24 1901 Blood Culture No growth at 120 hours Blood culture [[id number]] (Abnormal) Collected: 09/27/24 213 Lab Status: Final result Specimen: Blood, Venous Updated: 10/02/24 0804 Blood Culture Methicillin Resistant Staphylococcus aureus Comment: Susceptibilities previously reported. Gram Stain Aerobic Bottle: Gram positive cocci in clusters Tissue Culture, Aerobic & Anaerobic [[id number]] Collected: 09/27/24 1654 Lab Status: Final result Specimen: Tissue from Thigh, Left Updated: 10/01/24 1554 Narrative: The following orders were created for panel order Tissue Culture, Aerobic & Anaerobic. Procedure Abnormality Status --------- ------ Tissue Culture, Aerobic ...[[id number]] Anaerobic Culture[[id number]] Final result Please view results for these tests on the individual orders. Anaerobic Culture [[id number]] Collected: 09/27/24 165 Lab Status: Final result Specimen: Tissue from Thigh, Left Updated: 10/01/24 1554 Anaerobic Culture No anaerobic organisms isolated Tissue Culture, Aerobic Only [[id number]] (Abnormal) (Susceptibility) Collected: 09/27/24 165 Lab Status: [...] is considered susceptible to doxycycline. Blood culture [[id number]] (Abnormal) (Susceptibility) Collected: 09/26/24 1422 Lab Status: Final result Specimen: Blood, Venous Updated: 10/01/24 0658 Blood Culture Methicillin Resistant Staphylococcus aureus Comment: detected by PCR Isolate saved. If future testing is required, contact the Microbiology Quality Control. Gram Stain Aerobic Bottle: Gram positive cocci in clusters Susceptibility Methicillin Resistant Staphylococcus aureus VITEK 2 METHOD Clindamycin Resistant Gentamicin Susceptible [1] Linezolid Susceptible Oxacillin Resistant Trimethoprim/Sulfa Susceptible Vancomycin Susceptible [1] Gentamicin is not appropriate for monotherapy for gram-positive infections. Blood culture [[id number]] (Abnormal) Collected: 09/26/24 1845 Lab Status: Final result Specimen: Blood, Venous Updated: 10/01/24 0658 Blood Culture Methicillin Resistant Staphylococcus aureus Comment: isolated. Susceptibilities previously reported. Gram Stain Aerobic Bottle: Gram positive cocci in clusters Abscess/Wound Aspirate Culture, Aerobic & Anaerobic [[id number]] (Abnormal) Collected: 09/26/24 1650 Lab Status: Final result Specimen: Abscess from Groin, Left Updated: 09/30/24 1551 Narrative: The following orders were created for panel order Abscess/Wound Aspirate Culture, Aerobic & Anaerobic. Procedure Abnormality Status --------- ------ Abscess/Wound Aspirate C...[[id number]] Abnormal Final result Anaerobic Culture[[id number]] Final result Please view results for these tests on the individual orders. Anaerobic Culture [[id number]] Collected: 09/26/24 1650 Lab Status: Final result Specimen: Abscess from Groin, Left Updated: 09/30/24 1551 Anaerobic Culture No anaerobic organisms isolated Abscess/Wound Aspirate Culture, Aerobic & Anaerobic [[id number]] (Abnormal) Collected: 09/26/24 1702 Lab Status: Final result Specimen: Abscess from Knee, Left Updated: 09/30/24 1551 Narrative: The following orders were created for panel order Abscess/Wound Aspirate Culture, Aerobic & Anaerobic. Procedure Abnormality Status --------- ------ Abscess/Wound Aspirate C...[[id number]] Abnormal Final result Anaerobic Culture[[id number]] Final result Please view results for these tests on the individual orders. Anaerobic Culture [[id number]] Collected: 09/26/24 1702 Lab Status: Final result Specimen: Abscess from Knee, Left Updated: 09/30/24 1551 Anaerobic Culture No anaerobic organisms isolated Sonicated Tissue/Implant Culture [[id number]] (Abnormal) Collected: 09/26/24 1716 Lab Status: Final result Specimen: Vascular Graft from Leg, Left Updated: 09/30/24 1349 Sonicated Tissue/Implant Culture Methicillin Resistant Staphylococcus aureus Comment: isolated from broth culture. Susceptibilities previously reported. Abscess/Wound Aspirate Culture, Aerobic Only [[id number]] (Abnormal) (Susceptibility) Collected: 09/26/24 1702 Lab Status: [...] to doxycycline. Abscess/Wound Aspirate Culture, Aerobic Only [[id number]] (Abnormal) (Susceptibility) Collected: 09/26/24 1650 Lab Status: [...] is considered susceptible to doxycycline. AFB culture [[id number]] Collected: 09/27/24 165 Lab Status: Preliminary result Specimen: Tissue from Thigh, Left Updated: 09/29/24 1201 Acid Fast Bacilli Culture No acid fast bacilli isolated to date. Acid Fast Stain No acid fast bacilli seen AFB culture [[id number]] Collected: 09/26/24 1702 Lab Status: Preliminary result Specimen: Abscess from Knee, Left Updated: 09/29/24 1201 Acid Fast Bacilli Culture No acid fast bacilli isolated to date. Acid Fast Stain No acid fast bacilli seen Fungus culture [[id number]] Collected: 09/27/24 1654 Lab Status: Preliminary result Specimen: Tissue from Thigh, Left Updated: 09/28/24 0748 Fungus Culture No fungus isolated to date MRSA PCR Screen [[id number]] (Abnormal) Collected: 09/27/24 0751 Lab Status: Final result Specimen: Swab from Nares Updated: 09/27/24 1156 MRSA PCR Detected Narrative: This test was performed using the Xpert MRSA NxG test kit and is run on the [employer] GeneXpert Dx System. This test is cleared by the [place]. Food and Drug Administration for clinical use and its performance characteristics have been verified by the [facility] at [facility]. New Studies: - None Assessment & Plan: Geovanna Dixon Jr. is a 49 y.o. male with a history of HTN, HLD, NSTEMI, CAD s/p CABG (12/2011), DM,obesity, PAD s/p L iliofem endart and L fem-BK pop bypass and L 2nd toe amputation who was transferred from [facility] given concern for infected left fem-BK popliteal PTFE bypass. He is now s/p an explantof an infected left femoral-below knee popliteal artery bypass graft (09/26), I/D groin abscess (), L GSV harvest, vein patch angioplasty, L NEUROLOGY PHYSICIAN and BK pop w/ sartorius flap L [...] 81mg daily Benjamin Iniguez MD 10/04/2024 Pager: [phone] Associated attestation - Hayley Torres MD - [...] was scheduled for a f/u nutrition evaluation. Coring Machine Operator met pt at bedside. Pt sharedthat [...] nausea and no vomiting Last Bowel Movement: (CUSTOM FURRIER- MD made aware) Patient education / questions: all nutrition related questions answered at this time Nutrition services to follow weekly through hospital course unless consulted in the interim. Linda Bates Conservation Worker * Jessica Renae, PT - 10/03/2024 11:30 AM EST Physical Therapy Evaluation Patient profile: Geovanna Dixon Jr. is a 49 y.o. male with a history of HTN, HLD, NSTEMI, CAD s/p CABG (12/2011), DM,obesity, PAD s/p L iliofem endart and L fem-BK pop bypass and L 2nd toe amputation who was transferred from [facility], 09/26/24 given concern for infected left fem-BK popliteal PTFE bypass. He is now s/p an explant of an infected left femoral-below knee popliteal artery bypass graft (09/26), I/D groin abscess (09/27), L GSV harvest, vein patch angioplasty, L NEUROLOGY PHYSICIAN and BK pop w/ sartorius flap L fem, I/D, 09/29 L sartorius flap revision, vac change. 10/03/24 NPO at [facility] for OR wound exploration. Wound vac off [...] not holding suction - Last Bowel Movement: (CUSTOM FURRIER) Patient with the following active problems: Past [...] 5.23) performed by Hayley Torres MD at [facility] OR [facility] ENDOSCOPY W/VIDEO-ASST VEIN HARVEST, CABG 01/04/2012 ENDOSCOPIC HARVEST VEIN(S) FOR CABG performed by INNA TOVAR at [facility] MAIN OR PRO EXCISION, INFEC GRAFT, EXTREMITY Left 09/26/2024 EXCISION OF INFECTED GRAFT FROM LOWER EXTREMITY (WRVU 9.53) performed by Hayley Torres MD at [facility] OR PRO EXCISION, INFEC GRAFT, EXTREMITY [...] outlined in thisevaluation. Time IN / OUT: 1755-8623 Total Time: 28 minutes; Low EV and TEF JESSICA RENAE, PT Pager: [phone] Physical Therapy Inpatient Rehabilitation Department * Rose Wright, CLINICAL PROJECT ASSISTANT - 10/03/2024 7:53 AM EST Images from the original note were not included. Vascular Surgery Progress Note Geovanna Dixon Jr. is a 49 y.o. male with history of HTN, HLD, NSTEMI, CAD s/p CABG (12/2011), DM, obesity, PAD s/p L iliofem endart and L fem-BK pop bypass and L 2nd toe amputation who was transferred from [facility] given concern for infected left fem-BK popliteal [...] smoking 1 week ago. He presented to [facility] on 09/26 and went to the OR [...] not holding suction - Last Bowel Movement: (CUSTOM FURRIER) Objective: Temp: [36.4 ??C (97.5 ??F)-37.3 ??C [...] Procedure Component Value - Date/Time Blood culture [[id number]] Collected: 09/29/242123 Lab Status: Preliminary result Specimen: Blood, Venous Updated: 10/02/24 2300 Blood Culture No growth at 72 hours Blood culture [[id number]] Collected: 09/29/242123 Lab Status: Preliminary result Specimen: Blood, Venous Updated: 10/02/24 2300 Blood Culture No growth at 72 hours Blood culture [[id number]] Collected: 09/28/24 174 Lab Status: Preliminary result Specimen: Blood, Venous Updated: 10/02/24 1901 Blood Culture No growth at 96 hours Blood culture [[id number]] (Abnormal) Collected: 09/27/242132 Lab Status: Final result Specimen: Blood, Venous Updated: 10/02/24 0804 Blood Culture Methicillin Resistant Staphylococcus aureus Comment: Susceptibilities previously reported. Gram Stain Aerobic Bottle: Gram positive cocci in clusters Tissue Culture, Aerobic & Anaerobic [[id number]] Collected: 09/27/241653 Lab Status: Final result Specimen: Tissue from Thigh, Left Updated: 10/01/24 155 Narrative: The following orders were created for panel order Tissue Culture, Aerobic & Anaerobic. Procedure Abnormality Status --------- ------ Tissue Culture, Aerobic ...[[id number]] Anaerobic Culture[[id number]] Final result Please view results for these tests on the individual orders. Anaerobic Culture [[id number]] Collected: 09/27/241653 Lab Status: Final result Specimen: Tissue from Thigh, Left Updated: 10/01/24 1554 Anaerobic Culture No anaerobic organisms isolated Tissue Culture, Aerobic Only [[id number]] (Abnormal) (Susceptibility) Collected: 09/27/241653 Lab Status: Final [...] is considered susceptible to doxycycline. Blood culture [[id number]] (Abnormal) (Susceptibility) Collected: 09/26/24 1422 Lab Status: Final result Specimen: Blood, Venous Updated: 10/01/24 0658 Blood Culture Methicillin Resistant Staphylococcus aureus Comment: detected by PCR Isolate saved. If future testing is required, contact the Microbiology Quality Control. Gram Stain Aerobic Bottle: Gram positive cocci in clusters Susceptibility Methicillin Resistant Staphylococcus aureus VITEK 2 METHOD Clindamycin Resistant Gentamicin Susceptible [1] Linezolid Susceptible Oxacillin Resistant Trimethoprim/Sulfa Susceptible Vancomycin Susceptible [1] Gentamicin is not appropriate for monotherapy for gram-positive infections. Blood culture [[id number]] (Abnormal) Collected: 09/26/24 1845 Lab Status: Final result Specimen: Blood, Venous Updated: 10/01/24 0658 Blood Culture Methicillin Resistant Staphylococcus aureus Comment: isolated. Susceptibilities previously reported. Gram Stain Aerobic Bottle: Gram positive cocci in clusters Abscess/Wound Aspirate Culture, Aerobic & Anaerobic [[id number]] (Abnormal) Collected: 09/26/24 1650 Lab Status: Final result Specimen: Abscess from Groin, Left Updated: 09/30/24 1551 Narrative: The following orders were created for panel order Abscess/Wound Aspirate Culture, Aerobic & Anaerobic. Procedure Abnormality Status --------- ------ Abscess/Wound Aspirate C...[[id number]] Abnormal Final result Anaerobic Culture[[id number]] Final result Please view results for these tests on the individual orders. Anaerobic Culture [[id number]] Collected: 09/26/24 1650 Lab Status: Final result Specimen: Abscess from Groin, Left Updated: 09/30/24 1551 Anaerobic Culture No anaerobic organisms isolated Abscess/Wound Aspirate Culture, Aerobic & Anaerobic [[id number]] (Abnormal) Collected: 09/26/24 1702 Lab Status: Final result Specimen: Abscess from Knee, Left Updated: 09/30/24 1551 Narrative: The following orders were created for panel order Abscess/Wound Aspirate Culture, Aerobic & Anaerobic. Procedure Abnormality Status --------- ------ Abscess/Wound Aspirate C...[[id number]] Abnormal Final result Anaerobic Culture[[id number]] Final result Please view results for these tests on the individual orders. Anaerobic Culture [[id number]] Collected: 09/26/24 1702 Lab Status: Final result Specimen: Abscess from Knee, Left Updated: 09/30/24 1551 Anaerobic Culture No anaerobic organisms isolated Sonicated Tissue/Implant Culture [[id number]] (Abnormal) Collected: 09/26/24 1716 Lab Status: Final result Specimen: Vascular Graft from Leg, Left Updated: 09/30/24 1349 Sonicated Tissue/Implant Culture Methicillin Resistant Staphylococcus aureus Comment: isolated from broth culture. Susceptibilities previously reported. Abscess/Wound Aspirate Culture, Aerobic Only [[id number]] (Abnormal) (Susceptibility) Collected: 09/26/24 1702 Lab Status: [...] to doxycycline. Abscess/Wound Aspirate Culture, Aerobic Only [[id number]] (Abnormal) (Susceptibility) Collected: 09/26/24 1650 Lab Status: [...] is considered susceptible to doxycycline. AFB culture [[id number]] Collected: 09/27/241653 Lab Status: Preliminary result Specimen: Tissue from Thigh, Left Updated: 09/29/24 1201 Acid Fast Bacilli Culture No acid fast bacilli isolated to date. Acid Fast Stain No acid fast bacilli seen AFB culture [[id number]] Collected: 09/26/241701 Lab Status: Preliminary result Specimen: Abscess from Knee, Left Updated: 09/29/24 1201 Acid Fast Bacilli Culture No acid fast bacilli isolated to date. Acid Fast Stain No acid fast bacilli seen Fungus culture [[id number]] Collected: 09/27/241653 Lab Status: Preliminary result Specimen: Tissue from Thigh, Left Updated: 09/28/24 0748 Fungus Culture No fungus isolated to date MRSA PCR Screen [[id number]] (Abnormal) Collected: 09/27/24 0751 Lab Status: Final result Specimen: Swab from Nares Updated: 09/27/24 1156 MRSA PCR Detected Narrative: This test was performed using the Xpert MRSA NxG test kit and is run on the [employer] Dx System. This test is cleared by the U.S. Food and Drug Administration for clinical use and its performance characteristics have been verified by the [facility] at [facility]. Fungus culture [[id number]] Collected: 09/26/241649 Lab Status: Preliminary result Specimen: Abscess from Groin, Left Updated: 09/27/24 0727 Fungus Culture No fungus isolated to date Fungus culture [[id number]] Collected: 09/26/241701 Lab Status: Preliminary result Specimen: [...] 2nd toe amputation who was transferred from [facility] given concern for infected left fem-BK popliteal PTFE bypass. He is now s/p an explantof an infected left femoral-below knee popliteal artery bypass graft (09/26), I/D groin abscess (), L GSV harvest, vein patch angioplasty, L NEUROLOGY PHYSICIAN and BK pop w/ sartorius flap L fem, I/D, 09/29 L sartorius flap revision, vac change. 10/03/24 NPO at [facility] for OR wound exploration. Wound vac off [...] 81mg daily Rose Wright APRN 10/03/2024 Pager: [phone] * Padma Ramirez MD - 10/02/2024 7:42 [...] concerns. Joanie Silverio PT, DPT, GCS Pager: [phone] 10/02/24 Inpatient Rehabilitation Department * Hermila White [...] 2nd toe amputation who was transferred from [facility] given concern for infected left fem-BK popliteal [...] smoking 1 week ago. He presented to [facility] on 09/26 and went to the OR [...] acetaminophen 975 mg Oral Q6H [facility] atorvastatin 80 mg Oral QPM aspirin EC 81 mg Oral Daily methylphenidate 20 mg Oral TID pantoprazole EC 40 mg Oral Daily senna-docusate 2 tablet Oral BID venlafaxine XR 225 mg Oral Daily heparin (porcine) 5,000 Units Subcutaneous Q8H [facility] lidocaine 1 patch Transdermal Q24H Operations this [...] 9.6 from 9.1 - Last Bowel Movement: (CUSTOM FURRIER) Objective: Temp: [36.2 ??C (97.1 ??F)-36.9 ??C [...] Procedure Component Value - Date/Time Blood culture [[id number]] (Abnormal) Collected: 09/27/242132 Lab Status: Final result Specimen: Blood, Venous Updated: 10/02/24 0804 Blood Culture Methicillin Resistant Staphylococcus aureus Comment: Susceptibilities previously reported. Gram Stain Aerobic Bottle: Gram positive cocci in clusters Blood culture [[id number]] Collected: 09/29/242123 Lab Status: Preliminary result Specimen: Blood, Venous Updated: 10/01/24 2301 Blood Culture No growth at 48 hours Blood culture [[id number]] Collected: 09/29/242123 Lab Status: Preliminary result Specimen: Blood, Venous Updated: 10/01/24 2301 Blood Culture No growth at 48 hours Blood culture [[id number]] Collected: 09/28/24 1749 Lab Status: Preliminary result Specimen: Blood, Venous Updated: 10/01/24 1901 Blood Culture No growth at 72 hours Tissue Culture, Aerobic & Anaerobic [[id number]] Collected: 09/27/241653 Lab Status: Final result Specimen: Tissue from Thigh, Left Updated: 10/01/24 1554 Narrative: The following orders were created for panel order Tissue Culture, Aerobic & Anaerobic. Procedure Abnormality Status --------- ------ Tissue Culture, Aerobic ...[[id number]] Anaerobic Culture[[id number]] Final result Please view results for these tests on the individual orders. Anaerobic Culture [[id number]] Collected: 09/27/241653 Lab Status: Final result Specimen: Tissue from Thigh, Left Updated: 10/01/24 1554 Anaerobic Culture No anaerobic organisms isolated Tissue Culture, Aerobic Only [[id number]] (Abnormal) (Susceptibility) Collected: 09/27/24 1654 Lab Status: [...] is considered susceptible to doxycycline. Blood culture [[id number]] (Abnormal) (Susceptibility) Collected: 09/26/24 1422 Lab Status: Final result Specimen: Blood, Venous Updated: 10/01/24 0658 Blood Culture Methicillin Resistant Staphylococcus aureus Comment: detected by PCR Isolate saved. If future testing is required, contact the Microbiology Quality Control. Gram Stain Aerobic Bottle: Gram positive cocci in clusters Susceptibility Methicillin Resistant Staphylococcus aureus VITEK 2 METHOD Clindamycin Resistant Gentamicin Susceptible [1] Linezolid Susceptible Oxacillin Resistant Trimethoprim/Sulfa Susceptible Vancomycin Susceptible [1] Gentamicin is not appropriate for monotherapy for gram-positive infections. Blood culture [[id number]] (Abnormal) Collected: 09/26/24 1845 Lab Status: Final result Specimen: Blood, Venous Updated: 10/01/24 0658 Blood Culture Methicillin Resistant Staphylococcus aureus Comment: isolated. Susceptibilities previously reported. Gram Stain Aerobic Bottle: Gram positive cocci in clusters Abscess/Wound Aspirate Culture, Aerobic & Anaerobic [[id number]] (Abnormal) Collected: 09/26/24 1650 Lab Status: Final result Specimen: Abscess from Groin, Left Updated: 09/30/24 1551 Narrative: The following orders were created for panel order Abscess/Wound Aspirate Culture, Aerobic & Anaerobic. Procedure Abnormality Status --------- ------ Abscess/Wound Aspirate C...[[id number]] Abnormal Final result Anaerobic Culture[[id number]] Final result Please view results for these tests on the individual orders. Anaerobic Culture [[id number]] Collected: 09/26/24 1650 Lab Status: Final result Specimen: Abscess from Groin, Left Updated: 09/30/24 1551 Anaerobic Culture No anaerobic organisms isolated Abscess/Wound Aspirate Culture, Aerobic & Anaerobic [[id number]] (Abnormal) Collected: 09/26/24 1702 Lab Status: Final result Specimen: Abscess from Knee, Left Updated: 09/30/24 1551 Narrative: The following orders were created for panel order Abscess/Wound Aspirate Culture, Aerobic & Anaerobic. Procedure Abnormality Status --------- ------ Abscess/Wound Aspirate C...[[id number]] Abnormal Final result Anaerobic Culture[[id number]] Final result Please view results for these tests on the individual orders. Anaerobic Culture [[id number]] Collected: 09/26/24 170 Lab Status: Final result Specimen: Abscess from Knee, Left Updated: 09/30/24 1551 Anaerobic Culture No anaerobic organisms isolated Sonicated Tissue/Implant Culture [[id number]] (Abnormal) Collected: 09/26/24 1716 Lab Status: Final result Specimen: Vascular Graft from Leg, Left Updated: 09/30/24 1349 Sonicated Tissue/Implant Culture Methicillin Resistant Staphylococcus aureus Comment: isolated from broth culture. Susceptibilities previously reported. Abscess/Wound Aspirate Culture, Aerobic Only [[id number]] (Abnormal) (Susceptibility) Collected: 09/26/24 170 Lab Status: [...] to doxycycline. Abscess/Wound Aspirate Culture, Aerobic Only [[id number]] (Abnormal) (Susceptibility) Collected: 09/26/24 1650 Lab Status: [...] is considered susceptible to doxycycline. AFB culture [[id number]] Collected: 09/27/241653 Lab Status: Preliminary result Specimen: Tissue from Thigh, Left Updated: 09/29/24 1201 Acid Fast Bacilli Culture No acid fast bacilli isolated to date. Acid Fast Stain No acid fast bacilli seen AFB culture [[id number]] Collected: 09/26/241701 Lab Status: Preliminary result Specimen: Abscess from Knee, Left Updated: 09/29/24 1201 Acid Fast Bacilli Culture No acid fast bacilli isolated to date. Acid Fast Stain No acid fast bacilli seen Fungus culture [[id number]] Collected: 09/27/241653 Lab Status: Preliminary result Specimen: Tissue from Thigh, Left Updated: 09/28/24 0748 Fungus Culture No fungus isolated to date MRSA PCR Screen [[id number]] (Abnormal) Collected: 09/27/24 0751 Lab Status: Final result Specimen: Swab from Nares Updated: 09/27/24 1156 MRSA PCR Detected Narrative: This test was performed using the Xpert MRSA NxG test kit and is run on the [employer] GeneXpert Dx System. This test is cleared by the U.S. Food and Drug Administration for clinical use and its performance characteristics have been verified by the [facility] at [facility]. Fungus culture [[id number]] Collected: 09/26/241649 Lab Status: Preliminary result Specimen: Abscess from Groin, Left Updated: 09/27/24 0727 Fungus Culture No fungus isolated to date Fungus culture [[id number]] Collected: 09/26/241701 Lab Status: Preliminary result Specimen: [...] 2nd toe amputation who was transferred from [facility] given concern for infected left fem-BK popliteal PTFE bypass. He is now s/p an explantof an infected left femoral-below knee popliteal artery bypass graft (09/26), I/D groin abscess (), L GSV harvest, vein patch angioplasty, L NEUROLOGY PHYSICIAN and BK pop w/ sartorius flap L [...] 81mg daily Hermila White APRN 10/02/2024 Pager: [phone] * María Carranza APRN - 10/01/2024 8:41 AM EST Images from the original note were not included. Vascular Surgery Progress Note Geovanna Dixon Jr. is a 49 y.o. male with history of HTN, HLD, NSTEMI, CAD s/p CABG (12/2011), DM, obesity, PAD s/p L iliofem endart and L fem-BK pop bypass and L 2nd toe amputation who was transferred from [facility] given concern for infected left fem-BK popliteal [...] smoking 1 week ago. He presented to [facility] on 09/26 and went to the OR [...] WBC 10.1(9.5) - lytes WNL - BM CUSTOM FURRIER (09/26) - BC NGTD Objective: Temp: [36.6 [...] Procedure Component Value - Date/Time Blood culture [[id number]] (Abnormal) (Susceptibility) Collected: 09/26/24 1422 Lab Status: Final result Specimen: Blood, Venous Updated: 10/01/24 0658 Blood Culture Methicillin Resistant Staphylococcus aureus Comment: detected by PCR Isolate saved. If future testing is required, contact the Microbiology Quality Control. Gram Stain Aerobic Bottle: Gram positive cocci in clusters Susceptibility Methicillin Resistant Staphylococcus aureus VITEK 2 METHOD Clindamycin Resistant Gentamicin Susceptible [1] Linezolid Susceptible Oxacillin Resistant Trimethoprim/Sulfa Susceptible Vancomycin Susceptible [1] Gentamicin is not appropriate for monotherapy for gram-positive infections. Blood culture [[id number]] (Abnormal) Collected: 09/26/24 1845 Lab Status: Final result Specimen: Blood, Venous Updated: 10/01/24 0658 Blood Culture Methicillin Resistant Staphylococcus aureus Comment: isolated. Susceptibilities previously reported. Gram Stain Aerobic Bottle: Gram positive cocci in clusters Blood culture [[id number]] Collected: 09/29/244 Lab Status: Preliminary result Specimen: Blood, Venous Updated: 09/30/24 2301 Blood Culture No Growth at 18-24 hrs. Blood culture [[id number]] Collected: 09/29/24 2124 Lab Status: Preliminary result Specimen: Blood, Venous Updated: 09/30/24 2301 Blood Culture No Growth at 18-24 hrs. Blood culture [[id number]] Collected: 09/28/24 1749 Lab Status: Preliminary result Specimen: Blood, Venous Updated: 09/30/24 1901 Blood Culture No growth at 48 hours Abscess/Wound Aspirate Culture, Aerobic & Anaerobic [[id number]] (Abnormal) Collected: 09/26/24 165 Lab Status: Final result Specimen: Abscess from Groin, Left Updated: 09/30/24 1551 Narrative: The following orders were created for panel order Abscess/Wound Aspirate Culture, Aerobic & Anaerobic. Procedure Abnormality Status --------- ------ Abscess/Wound Aspirate C...[[id number]] Abnormal Final result Anaerobic Culture[[id number]] Final result Please view results for these tests on the individual orders. Anaerobic Culture [[id number]] Collected: 09/26/241649 Lab Status: Final result Specimen: Abscess from Groin, Left Updated: 09/30/24 1551 Anaerobic Culture No anaerobic organisms isolated Abscess/Wound Aspirate Culture, Aerobic & Anaerobic [[id number]] (Abnormal) Collected: 09/26/24 170 Lab Status: Final result Specimen: Abscess from Knee, Left Updated: 09/30/24 1551 Narrative: The following orders were created for panel order Abscess/Wound Aspirate Culture, Aerobic & Anaerobic. Procedure Abnormality Status --------- ------ Abscess/Wound Aspirate C...[[id number]] Abnormal Final result Anaerobic Culture[[id number]] Final result Please view results for these tests on the individual orders. Anaerobic Culture [[id number]] Collected: 09/26/24 170 Lab Status: Final result Specimen: Abscess from Knee, Left Updated: 09/30/24 1551 Anaerobic Culture No anaerobic organisms isolated Sonicated Tissue/Implant Culture [[id number]] (Abnormal) Collected: 09/26/24 1716 Lab Status: Final result Specimen: Vascular Graft from Leg, Left Updated: 09/30/24 1349 Sonicated Tissue/Implant Culture Methicillin Resistant Staphylococcus aureus Comment: isolated from broth culture. Susceptibilities previously reported. Abscess/Wound Aspirate Culture, Aerobic Only [[id number]] (Abnormal) (Susceptibility) Collected: 09/26/24 1702 Lab Status: [...] to doxycycline. Abscess/Wound Aspirate Culture, Aerobic Only [[id number]] (Abnormal) (Susceptibility) Collected: 09/26/24 1650 Lab Status: [...] is considered susceptible to doxycycline. Blood culture [[id number]] (Abnormal) Collected: 09/27/24 2133 Lab Status: Preliminary result Specimen: Blood, Venous Updated: 09/30/24 0718 Blood Culture Methicillin Resistant Staphylococcus aureus Comment: Susceptibilities previously reported. Gram Stain Aerobic Bottle: Gram positive cocci in clusters AFB culture [[id number]] Collected: 09/27/24 1654 Lab Status: Preliminary result Specimen: Tissue from Thigh, Left Updated: 09/29/24 1201 Acid Fast Bacilli Culture No acid fast bacilli isolated to date. Acid Fast Stain No acid fast bacilli seen AFB culture [[id number]] Collected: 09/26/24 1702 Lab Status: Preliminary result Specimen: Abscess from Knee, Left Updated: 09/29/24 1201 Acid Fast Bacilli Culture No acid fast bacilli isolated to date. Acid Fast Stain No acid fast bacilli seen Tissue Culture, Aerobic Only [[id number]] (Abnormal) (Susceptibility) Collected: 09/27/241653 Lab Status: Preliminary [...] is considered susceptible to doxycycline. Anaerobic Culture [[id number]] Collected: 09/27/241653 Lab Status: Preliminary result Specimen: Tissue from Thigh, Left Updated: 09/28/24 1355 Anaerobic Culture No anaerobic organisms isolated to date Fungus culture [[id number]] Collected: 09/27/241653 Lab Status: Preliminary result Specimen: Tissue from Thigh, Left Updated: 09/28/24 0748 Fungus Culture No fungus isolated to date MRSA PCR Screen [[id number]] (Abnormal) Collected: 09/27/24 0751 Lab Status: Final result Specimen: Swab from Nares Updated: 09/27/24 1156 MRSA PCR Detected Narrative: This test was performed using the Xpert MRSA NxG test kit and is run on the [employer] Dx System. This test is cleared by the U.S. Food and Drug Administration for clinical use and its performance characteristics have been verified by the [facility] at [facility]. Fungus culture [[id number]] Collected: 09/26/24 165 Lab Status: Preliminary result Specimen: Abscess from Groin, Left Updated: 09/27/24 0727 Fungus Culture No fungus isolated to date Fungus culture [[id number]] Collected: 09/26/24 1702 Lab Status: Preliminary result [...] 2nd toe amputation who was transferred from [facility] given concern for infected left fem-BK popliteal PTFE bypass. He is now s/p an explantof an infected left femoral-below knee popliteal artery bypass graft (09/26), I/D groin abscess (), L GSV harvest, vein patch angioplasty, L NEUROLOGY PHYSICIAN and BK pop w/ sartorius flap L fem, I/D, 09/29 L sartorius flap revision, vac change. 10/01/24: Tolerated gentle irrigation with saline at BSD today with clear to mildly serosang drainage - no purulence or malodor noted and patient tolerated well. Will plan for NPO at [place] for return [place] tomorrow. Hypertensive overnight, home [...] - ISS - diet today; NPO at [place] for OR Tuesday 10/02 Anticoagulation: SQH TID Antiplatelet: ASA 81 María Carranza, RESHMA 10/01/2024 Pager: [phone] * Karolyn Hudson MD - 09/30/2024 11:21 AM EST Images from the original note were not included. Vascular Surgery Progress Note Patient ID Geovanna Dixon Jr. is a 49 y.o. male with history of HTN, HLD, NSTEMI, CAD s/p CABG (12/2011), DM, obesity, PAD s/p L iliofem endart and L fem-BK pop bypass and L 2nd toe amputation who was transferred from [facility] given concern for infected left fem-BK popliteal [...] smoking 1 week ago. He presented to [facility] on 09/26 and went to the OR [...] Procedure Component Value - Date/Time Blood culture [[id number]] (Abnormal) Collected: 09/27/24 2133 Lab Status: Preliminary result Specimen: Blood, Venous Updated: 09/30/24 0718 Blood Culture Methicillin Resistant Staphylococcus aureus Comment: Susceptibilities previously reported. Gram Stain Aerobic Bottle: Gram positive cocci in clusters Blood culture [[id number]] Collected: 09/28/24 1749 Lab Status: Preliminary result Specimen: Blood, Venous Updated: 09/29/24 1901 Blood Culture No Growth at 18-24 hrs. AFB culture [[id number]] Collected: 09/27/24 1654 Lab Status: Preliminary result Specimen: Tissue from Thigh, Left Updated: 09/29/24 1201 Acid Fast Bacilli Culture No acid fast bacilli isolated to date. Acid Fast Stain No acid fast bacilli seen AFB culture [[id number]] Collected: 09/26/24 1702 Lab Status: Preliminary result Specimen: Abscess from Knee, Left Updated: 09/29/24 1201 Acid Fast Bacilli Culture No acid fast bacilli isolated to date. Acid Fast Stain No acid fast bacilli seen Sonicated Tissue/Implant Culture [[id number]] (Abnormal) Collected: 09/26/24 1716 Lab Status: Preliminary result Specimen: Vascular Graft from Leg, Left Updated: 09/29/24 1132 Sonicated Tissue/Implant Culture Methicillin Resistant Staphylococcus aureus Comment: isolated from broth culture. Susceptibilities previously reported. Tissue Culture, Aerobic Only [[id number]] (Abnormal) (Susceptibility) Collected: 09/27/24 1654 Lab Status: [...] is considered susceptible to doxycycline. Blood culture [[id number]] (Abnormal) Collected: 09/26/24 1845 Lab Status: Preliminary result Specimen: Blood, Venous Updated: 09/29/24 0719 Blood Culture Methicillin Resistant Staphylococcus aureus Comment: isolated. Susceptibilities previously reported. Gram Stain Aerobic Bottle: Gram positive cocci in clusters Blood culture [[id number]] (Abnormal) (Susceptibility) Collected: 09/26/24 1422 Lab Status: Preliminary result Specimen: Blood, Venous Updated: 09/29/24 0717 Blood Culture Methicillin Resistant Staphylococcus aureus Comment: detected by PCR Isolate saved. If future testing is required, contact the Microbiology Quality Control. Gram Stain Aerobic Bottle: Gram positive cocci in clusters Susceptibility Methicillin Resistant Staphylococcus aureus VITEK 2 METHOD Clindamycin Resistant Gentamicin Susceptible [1] Linezolid Susceptible Oxacillin Resistant Trimethoprim/Sulfa Susceptible Vancomycin Susceptible [1] Gentamicin is not appropriate for monotherapy for gram-positive infections. Anaerobic Culture [[id number]] Collected: 09/27/24 1654 Lab Status: Preliminary result Specimen: Tissue from Thigh, Left Updated: 09/28/24 1355 Anaerobic Culture No anaerobic organisms isolated to date Abscess/Wound Aspirate Culture, Aerobic Only [[id number]] (Abnormal) (Susceptibility) Collected: 09/26/24 1702 Lab Status: [...] to doxycycline. Abscess/Wound Aspirate Culture, Aerobic Only [[id number]] (Abnormal) (Susceptibility) Collected: 09/26/241649 Lab Status: Preliminary [...] is considered susceptible to doxycycline. Fungus culture [[id number]] Collected: 09/27/241653 Lab Status: Preliminary result Specimen: Tissue from Thigh, Left Updated: 09/28/24 0748 Fungus Culture No fungus isolated to date MRSA PCR Screen [[id number]] (Abnormal) Collected: 09/27/24 0751 Lab Status: Final result Specimen: Swab from Nares Updated: 09/27/24 1156 MRSA PCR Detected Narrative: This test was performed using the Xpert MRSA NxG test kit and is run on the [employer] GeneXpert Dx System. This test is cleared by the U.S. Food and Drug Administration for clinical use and its performance characteristics have been verified by the [facility] at [facility]. Anaerobic Culture [[id number]] Collected: 09/26/241649 Lab Status: Preliminary result Specimen: Abscess from Groin, Left Updated: 09/27/24 1142 Anaerobic Culture No anaerobic organisms isolated to date Anaerobic Culture [[id number]] Collected: 09/26/24 1702 Lab Status: Preliminary result Specimen: Abscess from Knee, Left Updated: 09/27/24 1142 Anaerobic Culture No anaerobic organisms isolated to date Fungus culture [[id number]] Collected: 09/26/241649 Lab Status: Preliminary result Specimen: Abscess from Groin, Left Updated: 09/27/24 0727 Fungus Culture No fungus isolated to date Fungus culture [[id number]] Collected: 09/26/24 1702 Lab Status: Preliminary result Specimen: Abscess from Knee, Left Updated: 09/27/24726 Fungus Culture No fungus isolated to date New Studies Results for orders placed or performed during the hospital encounter of 09/26/24 Request For 2nd Read CT Lower Extremity (Exam End: 09/26/2024 1:50 PM) Result Value WORKSTATION ID [id number] Impression 1. There is a left femoral [...] who have questions please contact the health ostomy care nurse that requested your imaging first. Electronically signed by: Lisette Bruno MD, [facility] ([phone]), at 09/26/2024 3:[address] Lower Extremity w Contrast Left (Exam End: 09/27/2024 9:16 AM) Result Value WORKSTATION ID [id number] Impression IMPRESSION: 1. Interval explant of LEFT [...] who have questions please contact the health ostomy care nurse that requested your imaging first. Electronically signed by: Ignacia Chi MD, [facility] ([phone]), at 09/27/2024 10:48 AM 09/28 ABIs Interpretation: [...] 2nd toe amputation who was transferred from [facility] given concern for infected left fem-BK popliteal [...] at proximal and distal anastomoses and a [place] drain placed from left groin to left [...] Labs 09/28/24 1516 PHART 7.42 PO2ART 103 [id number] 39 LACTATEART 1.1 BEART 0.2 Is this [...] 1643 PHART 7.42 7.38 PO2ART 103 96 [id number] 39 41 LACTATEART 1.1 1.7 BEART 0.2 [...] Thank you, Renea Nunez, MS, RD, LD, [facility] Clinical Nutrition * Mariya Shi RN [...] factor of 20 Diet CC Monitoring: Q4 Fanw Cunningham APRN [facility] Endocrinology Diabetes Management Pager [phone] Weekends please page [phone] 35 minutes were spent over the course [...] Labs 09/26/24 1643 PHART 7.[id number] LACTATEART 1.7 BEART -1.4 Is this [...] 2nd toe amputation who was transferred from [facility] given concern for infected left fem-BK popliteal [...] smoking 1 week ago. He presented to [facility] on 09/26 and went to the OR [...] Procedure Component Value - Date/Time Fungus culture [[id number]] Collected: 09/27/24 1654 Lab Status: Preliminary result Specimen: Tissue from Thigh, Left Updated: 09/28/24 0748 Fungus Culture No fungus isolated to date Blood culture [[id number]] (Abnormal) Collected: 09/26/24 1845 Lab Status: Preliminary result Specimen: Blood, Venous Updated: 09/28/24 0711 Blood Culture Methicillin Resistant Staphylococcus aureus Comment: isolated. Susceptibility testing in progress. Gram Stain Aerobic Bottle: Gram positive cocci in clusters AFB culture [[id number]] Collected: 09/26/24 170 Lab Status: Preliminary result Specimen: Abscess from Knee, Left Updated: 09/27/24 2335 Acid Fast Stain No acid fast bacilli seen Tissue Culture, Aerobic Only [[id number]] Collected: 09/27/24 165 Lab Status: Preliminary result Specimen: Tissue from Thigh, Left Updated: 09/27/24 1810 Gram Stain Few Neutrophils seen No microorganisms seen Abscess/Wound Aspirate Culture, Aerobic Only [[id number]] (Abnormal) Collected: 09/26/24 170 Lab Status: Preliminary result Specimen: Abscess from Knee, Left Updated: 09/27/24 1520 Abscess/Wound Aspirate Culture Many Staphylococcus aureus Gram Stain Many neutrophils Many Gram positive cocci Abscess/Wound Aspirate Culture, Aerobic Only [[id number]] (Abnormal) Collected: 09/26/241649 Lab Status: Preliminary result Specimen: Abscess from Groin, Left Updated: 09/27/24 1519 Abscess/Wound Aspirate Culture Many Staphylococcus aureus Gram Stain Many neutrophils Many Gram positive cocci Blood culture [[id number]] (Abnormal) Collected: 09/26/24 1422 Lab Status: Preliminary result Specimen: Blood, Venous Updated: 09/27/24 1320 Blood Culture Methicillin Resistant Staphylococcus aureus Comment: detected by PCR Gram Stain Aerobic Bottle: Gram positive cocci in clusters MRSA PCR Screen [[id number]] (Abnormal) Collected: 09/27/24 0751 Lab Status: Final result Specimen: Swab from Nares Updated: 09/27/24 1156 MRSA PCR Detected Narrative: This test was performed using the Xpert MRSA NxG test kit and is run on the [employer] GeneXReferBright Dx System. This test is cleared by the U.S. Food and Drug Administration for clinical use and its performance characteristics have been verified by the [facility] at [facility]. Anaerobic Culture [[id number]] Collected: 09/26/24 165 Lab Status: Preliminary result Specimen: Abscess from Groin, Left Updated: 09/27/24 1142 Anaerobic Culture No anaerobic organisms isolated to date Anaerobic Culture [[id number]] Collected: 09/26/24 170 Lab Status: Preliminary result Specimen: Abscess from Knee, Left Updated: 09/27/24 1142 Anaerobic Culture No anaerobic organisms isolated to date Fungus culture [[id number]] Collected: 09/26/24 1650 Lab Status: Preliminary result Specimen: Abscess from Groin, Left Updated: 09/27/24726 Fungus Culture No fungus isolated to date Fungus culture [[id number]] Collected: 09/26/24 1702 Lab Status: Preliminary result Specimen: Abscess from Knee, Left Updated: 09/27/24726 Fungus Culture No fungus isolated to date New Studies Results for orders placed or performed during the hospital encounter of 09/26/24 Request For 2nd Read CT Lower Extremity (Exam End: 09/26/2024 1:50 PM) Result Value WORKSTATION ID [id number] Impression 1. There is a left femoral [...] who have questions please contact the health ostomy care nurse that requested your imaging first. Electronically signed by: Lisette Bruno MD, [facility] ([phone]), at 09/26/2024 3:[address] Lower Extremity w Contrast Left (Exam End: 09/27/2024 9:16 AM) Result Value WORKSTATION ID [id number] Impression IMPRESSION: 1. Interval explant of LEFT [...] who have questions please contact the health ostomy care nurse that requested your imaging first. Electronically signed by: Ignacia Chi MD, [facility] ([phone]), at 09/27/2024 10:48 AM Assessment & Plan Geovanna Dixon Jr. is a 49 y.o. 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 : [id number] MR#: [id number] Admit Date: 09/26/2024 2:08 PM Hospital Day 1 day Narrative: Web Content Producer initiated visit with patient during rounds on the unit. Patient indicated that he was not uatsdin. He reported that he was in less [...] Labs 09/26/24 1643 PHART 7.38 PO2ART 96 [id number] 41 LACTATEART 1.7 BEART -1.4 Is this [...] 2nd toe amputation who was transferred from [facility] given concern for infected left fem-BK popliteal [...] smoking 1 week ago. He presented to [facility] on 09/26 and went to the OR [...] 2nd toe amputation who was transferred from [facility] given concern for infected left fem-BK popliteal [...] graft associated infection. The patient presented to [facility] ED on 09/26 for evaluation of increasing [...] remained hemodynamically stable during his time at [facility] and was transported by ground to [facility] for vascular surgery consultation. Patient was admitted [...] 3 times daily. Use as instructed Indications: [id number] each 1 Past Week FreeStyle Lancets 28 [...] 200 - 393 mg/dL Type and screen ([facility]/P/BABITA) Result Value Ref Range ABORH Type A POSITIVE PATIENT HISTORY Found Expires at 2359 on: 09/29/2024 ANTIBODY SCREEN AUTOMATED Negative T&S only valid at [facility] LAB CBC (with Diff) Result Value Ref [...] 09/26/2024 1:50 PM) Result Value WORKSTATION ID [id number] Impression 1. There is a left femoral [...] who have questions please contact the health ostomy care nurse that requested your imaging first. Electronically signed by: Lisette Bruno MD, [facility] ([phone]), at 09/26/2024 3:01 PM Assessment/Plan: Geovanna Dixon [...] to the planned procedure. Hand Hygiene: The field pipelines supervisor did perform hand hygiene prior to line insertion. Catheter type: PICC Lot number: [id number] Procedure Technique: Skin was prepped with chlorhexidine. [...] to the planned procedure. Hand Hygiene: The field pipelines supervisor did perform hand hygiene prior to line insertion. Catheter type: PICC Lot number: [id number] Procedure Technique: Skin was prepped with chlorhexidine. [...] Outcome: Outcome (s) achieved 10/10/20241330 by Terell Aariza RN Outcome: Ongoing (Interventions Implemented as Appropriate) [...] tomorrow afternoon. Home Vac: I have called [facility] Inventory and they they have now delivered the home ActiVac serial # [id number]. Pt reviewed the [facility] ActiVac Proof of Delivery/Assignment of Benefits (POD/AOB)form and signed it; she has copy of this and the [facility] Patient Copy letter along with the supplies, I will fax copy of the POD/AOB to [facility]. Needs for Transition of Care: Plan for discharge is: Home w/ Services Outpatient Agency/Support Group Needs: Homecare agency Outpatient IV Medications - IV Access: Access Ordered Location: Home, Referred to [facility] Coordination, Referred to [facility]: Occupational Therapy, Physical Therapy, Registered Nurse Agency Referrals & Follow-up Care: Contact information [place] [facility] [place] [address] [facility] [address] Transportation: family or friend will provide Functional status prior to admission: Independent Home Environment: Others in the home: sibling(s), other (see comments) (lives with his sister delmy and brother in law). Current Living Arrangements: home/apartment/condo. Accessibility Concerns: . Current Functional Ability: Assistive Person and Equipment DME used at home: none Other DME Needs: Wound Vac Provider: [facility] Patient is insured through: Primary Insurance: [employer] MANAGED MEDICARE Payor: Data [employer] MANAGED MEDICARE / Plan: WELL[employer] MANAGED MEDICARE [...] Pain Flowsheets Taken 10/09/20242022 Pain Management Interventions: fmrcgq-bta-yxgga dosing utilized care clustered diversional activity provided [...] from the [place] [address] [facility] Vascular Access Service Peripherally Inserted Central Catheter (PICC) Teaching Sheet Peripherally inserted central catheters (qjse-wa-pjgo) (PICC) are used when you need IV [...] midline catheter? PICC lines are used for longwall headgate operator treatments. PICC lines may be used for [...] can be set up via the nurse Tire Wrapper to help you. What are possible complications [...] Efficacy, Safety, Use, and Administration of Cathflo, [email or web address] 2005 * Care Management - Cristina [...] MEDICARE Payor: WELL[employer] MANAGED MEDICARE / Plan: Data [employer] MANAGED MEDICARE PPO / Product Type: *No [...] Access: Access Ordered Location: Home, Referred to [facility] Coordination Home Health Services: Occupational Therapy, Physical Therapy, Registered Nurse- will remove PT, OT Agency Referrals: [facility] and [facility] for IV abx. [facility] can come tomorrow [...] 9:00 AM EST OFFICE OF CARE MANAGEMENT Tire Wrapper Follow-up Note Cristina Turner RN reviewed record [...] medically ready. Current Referral in place: VNA: [facility] Wound vac ordered in [employer] System for home wound vac and order emailed to: María for signature. Tire Wrapper to follow with team and family to [...] where referrals are placed. Request referral to [place], [place] for IV abx or . Expected date of discharge: 10/11. Patient will require teaching. Referral routed to the Air Brake Rigger for matching with agency/vendor and to provide [...] care clustered diversional activity provided position adjusted bpeuex-fju-upsyr dosing utilized pain management plan reviewed with [...] have. Alternately, during off-hours you may call [phone] to contact a pharmacist. * Plan of Care - Jordyn Navas RN - 10/07/2024 7:21 PM EST OUTCOME EVALUATION NOTE: OUTCOME SUMMARY: [facility], Meds/Assessments as charted, Frequent [...] PM EST PICC line placed today for longwall headgate operator ABX. Neurovascular checks unchanged. Good oral intake [...] as Appropriate) * Plan of Care - Dmoinique Holman RN - 10/06/2024 2:57 PM EST Images from the original [place] [address] [facility] Vascular Access Service Peripherally Inserted Central Catheter (PICC) Teaching Sheet Peripherally inserted central catheters (bbzn-ge-hylt) (PICC) are used when you need IV [...] midline catheter? PICC lines are used for longwall headgate operator treatments. PICC lines may be used for [...] can be set up via the nurse Tire Wrapper to help you. What are possible complications [...] Vascular Access Device Selection, Insertion, and Management, [employer] 08/12. A Review of the Efficacy, Safety, Use, and Administration of Cathflo, [employer]. 2005 * Care Management - Vibha [...] No Patient is insured through: Primary Insurance: [employer] MANAGED MEDICARE Payor: [employer] MANAGED MEDICARE / Plan: [employer] MANAGED MEDICARE PPO / Product Type: *No [...] of Discharge: 10/10/2024 Vibha Wahl RN-BSN-CM Pager: [phone] * Consult Note - Stormy Muller [facility] - 10/06/2024 9:19 AM EST [facility] Pharmacokinetics Note Drug: Vancomycin Pharmacokinetic target: AUC24 (range) 400-600 mg/L.hr Current regimen: 1250 mg IV every 8 hours Geovanna Dixon is a(n) 49 years old male receiving Vancomycin 1250 mg IV every 8 hours for MRSA bacteremia/graft infection Recent measured serum creatinine values: 10/06/2024 00:03 0.85 mg/dL 10/04/2024 23:50 0.55 mg/dL 10/04/2024 00:08 0.56 mg/dL Assessment: Analysis of the most recent level(s) using Home Chef gives the following patient-specific pharmacokinetic parameters: CL: [...] in a steady-state trough of 14.6 mg/L [id number] of 508 mg/L.hr. Recommendations: - SCr has [...] Meeks MD - 10/04/2024 5:01 PM EST [facility] Operative Note Patient Name: Geovanna Dixon Jr. : [id number] MR#: [id number] Case Date: 10/04/2024 Surgeon: Surgeons and Role: * Marko Dickson MD - Primary * Cristino Meeks MD - Resident - Assisting Preoperative diagnosis: Status post explant of infected left NEUROLOGY PHYSICIAN-BK pop bypass graft Postoperative diagnosis: Status post explant of infected left NEUROLOGY PHYSICIAN-BK pop bypass graft Procedure(s) (LRB): DEBRIDEMENT SKIN [...] 2nd toe amputation who was transferred from [facility] given concern for infected left fem-BK popliteal PTFE bypass. He is now s/p an explant of an infected left femoral-below knee popliteal artery bypass graft on 09/26 followed by I/D posterior thigh abscess on 09/27 then left GSV harvest, total explant of remaining PTFE then vein patch angioplasty of the left NEUROLOGY PHYSICIAN and BK popliteal artery on 09/28 then [...] Note Patient Name: Geovanna Dixon Jr. : [id number] MR#: [id number] Case Date: 10/04/2024 Surgeon: Surgeons and Role: * Marko Dickson MD - Primary * Cristino Meeks MD - Resident - Assisting Preoperative diagnosis: Status post explant of infected left NEUROLOGY PHYSICIAN-BK pop bypass graft Postoperative diagnosis: Status post explant of infected left NEUROLOGY PHYSICIAN-BK pop bypass graft Procedure(s) (LRB): DEBRIDEMENT SKIN [...] No Patient is insured through: Primary Insurance: [employer] MANAGED MEDICARE Payor: [employer] MANAGED MEDICARE / Plan: [employer] MANAGED MEDICARE PPO / Product Type: *No Product type* / Secondary Insurance: N/A Last Physical Therapy Recommendation: home with supervision (and support from family, prn) with None (10/03/24 1101) Last Occupational Therapy Recommendation: home (w/ family) with None (10/03/24 7077) Plan for discharge is: Pending Hospital Course [...] BIT to reengage please page BIT @ 2375 * Consult Note - Vangie Chandra [facility] - 10/04/2024 10:42 AM EST [facility] Pharmacokinetics Note Drug: Vancomycin Pharmacokinetic target: AUC24 (range) 400-600 mg/L.hr Current regimen: 1500 mg IV every 8 hours Geovanna Dixon is a(n) 49 years old male receiving Vancomycin 1500 mg IV every 8 hours for graft infection Recent measured serum creatinine values: 10/04/2024 00:08 0.56 mg/dL 10/03/2024 00:27 0.51 mg/dL 10/02/2024 00:41 0.49 mg/dL Assessment: Analysis of the most recent level(s) using Home Chef gives the following patient-specific pharmacokinetic parameters: CL: [...] L 2nd toe amputationwho was transferred from [facility] given concern for infected left fem-BK popliteal PTFE bypass. He is now s/p an explant of an infected left femoral-below knee popliteal artery bypass graft (09/26), I/D groin abscess (09/27), L GSV harvest, vein patch angioplasty, L NEUROLOGY PHYSICIAN and BK pop w/ sartorius flap L fem, I/D, 09/29 L sartorius flap revision, vac change. 10/03/24 NPO at [facility] for OR wound exploration. Wound vac off [...] 9.53) performed by Hayley Torres MD at [facility] OR PRO EXCISION, INFEC GRAFT, EXTREMITY [...] Pt issued and educated on use of manager military for manager military lower items. Self-feeding: Independent Grooming: Set up [...] been seen for occupational therapy evaluation. Geovanna iDxon Jr. presents with the following performance skill [...] Discharge planning Total Minutes, Occupational Therapy: 35 ([phone]) OT Evaluation Code Rationale: Diagnosis & Pertinent Co-Morbidities affecting Plan of Care: see PMHx Occupational Profile & Client History: Brief Expanded Extensive x Assessment of Occupational Performance: 1-3 performance deficits 3-5 performance deficits x 5 + performance deficits Clinical Decision Making: Low Moderate High x Clinical decision making of low complexity using standardized patient assessment instrument and measurable assessment of functional outcome. Pager: [phone] Jorge Goetz OT 10/03/2024 Occupational Therapy Rehabilitation [...] Mccormick MD - 10/02/2024 2:06 PM EST [facility] Operative Note Patient Name: Geovanna Dixon Jr. : [id number] MR#: [id number] Case Date: 10/02/2024 Surgeon: Surgeons and Role: [...] 2nd toe amputation who was transferred from [facility] given concern for infected left fem-BK popliteal [...] the groin, we then attached a 15 [place] Jose drain to the Yung drain, and remove the Yung drain, replacing it with the 15 [place] Jose drain. In a similar way we [...] Therapy, Physical Therapy, Registered Nurse Agency Referrals: [facility]. [address] [place] [id number] Transportation: family or friend will provide Barriers to discharge: Global: Denies needs/concerns at this time Plan: Patient is not medically ready related to: patient is going to the OR today for a washout andremains on blowout precautions. Plan going forward is: when able patient will need to work with PT/OT Anticipated Date of Discharge: 10/10/2024 Penny ROSAS RN CM Phone: [phone] Pager: [phone] * Plan of Care - Heidi Mobley [...] output. * Consult Note - Katelyn Oconnor [facility] - 09/30/2024 7:43 AM EST Formerly [facility] Pharmacokinetics Note Drug: Vancomycin Pharmacokinetic target: AUC24 (range) 400-600 mg/L.hr Current regimen: 1500 mg IV every 8 hours Geovanna Dixon is a(n) 49 years old male receiving Vancomycin 1500 mg IV every 8 hours for bacteremia Recent measured serum creatinine values: 09/29/2024 23:52 0.48 mg/dL 09/28/2024 23:51 0.52 mg/dL 09/27/2024 23:58 0.48 mg/dL Assessment: Analysis of the most recent level(s) using [employer] gives the following patient-specific pharmacokinetic parameters: CL: [...] Finney MD - 09/29/2024 2:41 PM EST [facility] Operative Note Patient Name: Geovanna Dixon Jr. : [id number] MR#: [id number] Case Date: 09/29/2024 Surgeon: Surgeons and Role: [...] 2nd toe amputation who was transferred from [facility] given concern for infected left fem-BK popliteal [...] mobilized and explored. The area around the NEUROLOGY PHYSICIAN was irrigated copiously. The flap was then [...] Therapy, Physical Therapy, Registered Nurse Agency Referrals: [facility] [address] [place] [address] Transportation: family or friend will provide Barriers [...] Discharge: 10/04/2024 Penny ROSAS RN CM Phone: [phone] Pager: [phone] * Consult Note - Rose Wright APRN [...] 2nd toe amputation who was transferred from [facility] given concern for infected left fem-BK popliteal [...] smoking 1 week ago. He presented to [facility] on 09/26 and went to the OR [...] Procedure Component Value - Date/Time Blood culture [[id number]] (Abnormal) Collected: 09/27/242132 Lab Status: Preliminary result Specimen: Blood, Venous Updated: 09/29/24 0721 Blood Culture Methicillin Resistant Staphylococcus aureus Gram Stain Aerobic Bottle: Gram positive cocci in clusters Blood culture [[id number]] (Abnormal) Collected: 09/26/24 1845 Lab Status: Preliminary result Specimen: Blood, Venous Updated: 09/29/24 0719 Blood Culture Methicillin Resistant Staphylococcus aureus Comment: isolated. Susceptibilities previously reported. Gram Stain Aerobic Bottle: Gram positive cocci in clusters Blood culture [[id number]] (Abnormal) (Susceptibility) Collected: 09/26/24 1422 Lab Status: Preliminary result Specimen: Blood, Venous Updated: 09/29/24 0717 Blood Culture Methicillin Resistant Staphylococcus aureus Comment: detected by PCR Isolate saved. If future testing is required, contact the Microbiology Quality Control. Gram Stain Aerobic Bottle: Gram positive cocci in clusters Susceptibility Methicillin Resistant Staphylococcus aureus VITEK 2 METHOD Clindamycin Resistant Gentamicin Susceptible [1] Linezolid Susceptible Oxacillin Resistant Trimethoprim/Sulfa Susceptible Vancomycin Susceptible [1] Gentamicin is not appropriate for monotherapy for gram-positive infections. AFB culture [[id number]] Collected: 09/27/24 165 Lab Status: Preliminary result Specimen: Tissue from Thigh, Left Updated: 09/28/24 2226 Acid Fast Stain No acid fast bacilli seen Anaerobic Culture [[id number]] Collected: 09/27/24 165 Lab Status: Preliminary result Specimen: Tissue from Thigh, Left Updated: 09/28/24 1355 Anaerobic Culture No anaerobic organisms isolated to date Sonicated Tissue/Implant Culture [[id number]] Collected: 09/26/24 1716 Lab Status: Preliminary result Specimen: Vascular Graft from Leg, Left Updated: 09/28/24 1323 Sonicated Tissue/Implant Culture Culture in progress Tissue Culture, Aerobic Only [[id number]] (Abnormal) Collected: 09/27/24 1654 Lab Status: Preliminary result Specimen: Tissue from Thigh, Left Updated: 09/28/24 1049 Tissue Culture Rare Staphylococcus aureus Gram Stain Few Neutrophils seen No microorganisms seen Abscess/Wound Aspirate Culture, Aerobic Only [[id number]] (Abnormal) (Susceptibility) Collected: 09/26/24 1702 Lab Status: [...] to doxycycline. Abscess/Wound Aspirate Culture, Aerobic Only [[id number]] (Abnormal) (Susceptibility) Collected: 09/26/241649 Lab Status: Preliminary [...] is considered susceptible to doxycycline. Fungus culture [[id number]] Collected: 09/27/241653 Lab Status: Preliminary result Specimen: Tissue from Thigh, Left Updated: 09/28/24 0748 Fungus Culture No fungus isolated to date AFB culture [[id number]] Collected: 09/26/241701 Lab Status: Preliminary result Specimen: Abscess from Knee, Left Updated: 09/27/24 2335 Acid Fast Stain No acid fast bacilli seen MRSA PCR Screen [[id number]] (Abnormal) Collected: 09/27/24 0751 Lab Status: Final result Specimen: Swab from Nares Updated: 09/27/24 1156 MRSA PCR Detected Narrative: This test was performed using the Xpert MRSA NxG test kit and is run on the [employer] GeneXpert Dx System. This test is cleared by the U.S. Food and Drug Administration for clinical use and its performance characteristics have been verified by the [facility] at [facility]. Anaerobic Culture [[id number]] Collected: 09/26/241649 Lab Status: Preliminary result Specimen: Abscess from Groin, Left Updated: 09/27/24 1142 Anaerobic Culture No anaerobic organisms isolated to date Anaerobic Culture [[id number]] Collected: 09/26/24 170 Lab Status: Preliminary result Specimen: Abscess from Knee, Left Updated: 09/27/24 1142 Anaerobic Culture No anaerobic organisms isolated to date Fungus culture [[id number]] Collected: 09/26/24 1650 Lab Status: Preliminary result Specimen: Abscess from Groin, Left Updated: 09/27/24726 Fungus Culture No fungus isolated to date Fungus culture [[id number]] Collected: 09/26/24 1702 Lab Status: Preliminary result Specimen: Abscess from Knee, Left Updated: 09/27/24726 Fungus Culture No fungus isolated to date New Studies Results for orders placed or performed during the hospital encounter of 09/26/24 Request For 2nd Read CT Lower Extremity (Exam End: 09/26/2024 1:50 PM) Result Value WORKSTATION ID [id number] Impression 1. There is a left femoral [...] who have questions please contact the health ostomy care nurse that requested your imaging first. Electronically signed by: Lisette Bruno MD, [facility] ([phone]), at 09/26/2024 3:[address] Lower Extremity w Contrast Left (Exam End: 09/27/2024 9:16 AM) Result Value WORKSTATION ID [id number] Impression IMPRESSION: 1. Interval explant of LEFT [...] who have questions please contact the health ostomy care nurse that requested your imaging first. Electronically signed by: Ignacia Chi MD, [facility] ([phone]), at 09/27/2024 10:48 AM 09/28 ABIs Interpretation: [...] 2nd toe amputation who was transferred from [facility] given concern for infected left fem-BK popliteal [...] Torres MD - 09/28/2024 12:23 PM EST [facility] Operative Note Patient Name: Geovanna Dixon Jr. : [id number] MR#: [id number] Case Date: 09/28/2024 Surgeon: Surgeons and Role: [...] pericardial patch and PTFE willard over the NEUROLOGY PHYSICIAN was unincorporated. - Resection of prior femoral [...] Destination 1 : Left femoral proximal graft Packing Machine Operator Leg, Left SURGICAL PATHOLOGY Hayley Torres MD 09/28/2024 1410 2 : Left distal BK pop graft Packing Machine Operator Leg, Left SURGICAL PATHOLOGY Hayley Torres [...] Indications: 49M with history of a left NEUROLOGY PHYSICIAN-BK popliteal artery bypass with PTFE performed in [...] solution. Systemic heparin was administered. Next, the NEUROLOGY PHYSICIAN, SFA, and DFA were clamped. An 11-blade scalpel was used to excise the PTFE graft willard and the prior bovine pericardial patch, and all prior Prolene sutures were removed. Residual plaque in the arterial lumen was removed using a Cumming elevator. The harvested vein patch was cut [...] the midline with division of the first cotton header, such that the sartorius muscle was free [...] Torres MD - 09/28/2024 12:23 PM EST [facility] Operative Note Patient Name: Geovanna Dixon Jr. : [id number] MR#: [id number] Case Date: 09/28/2024 Surgeon: Surgeons and Role: [...] - Prior bovine pericardial patch over the NEUROLOGY PHYSICIAN was unincorporated. - Resection of prior femoral [...] No * Consult Note - Tea Nguyen, [facility] - 09/28/2024 9:23 AM EST [...] Analysis of the most recent level(s) using [employer] gives the following patient-specific pharmacokinetic parameters: CL: [...] Note Patient Name: Geovanna Dixon Jr. : [id number] MR#: [id number] Case Date: 09/27/2024 Surgeon: Surgeons and Role: [...] Torres MD - 09/27/2024 4:27 PM EST [facility] Operative Note Patient Name: Geovanna Dixon Jr. : [id number] MR#: [id number] Case Date: 09/26/2024 Surgeon: Surgeons and Role: [...] distal anastomoses with Prolene tag on latter. [place] drain placed from left groin to left [...] ANAEROBIC Hayley Torres MD 09/26/2024 1702 Drains: [place] drain between left groin to left thigh [...] HPI/Surgical Indications: 49M with history of left NEUROLOGY PHYSICIAN-BK popliteal artery bypass graft with PTFE (July [...] Torres MD - 09/27/2024 4:27 PM EST [facility] Operative Note Patient Name: Geovanna Dixon Jr. : [id number] MR#: [id number] Case Date: 09/27/2024 Surgeon: Surgeons and Role: [...] 2nd toe amputation who was transferred from [facility] given concern for infected left fem-BK popliteal [...] smoking 1 week ago. He presented to [facility] on 09/26 and went to the OR [...] need to include opening and closing). 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 Glargine 25 units administered this [...] outpatient diabetes regimen: Diabetes Provider: PCP in [facility] Medications: Lantus 50 units, lispro [...] Cunningham APRN Endocrinology Diabetes Management Service Pager: [phone] Weekends please page [phone] 80 minute visit was spent in counseling [...] 180 days) Any patient receiving care in [place] must abide by [place] law. The hierarchy [...] (i) The agent with financial power of county attorney or a conservator appointed in accordance [...] In the past 12 months has the [facility], gas, oil, or water [employer] threatened to shut off services in your [...] DME: none Home Address confirmed as: [address] [address] Social & Family Supports: All names listed [...] his home before. Health/Prescription Coverage: Primary Insurance: [employer] MANAGED MEDICARE Payor: [employer] MANAGED MEDICARE / Plan: [facility]NA[facility] MEDIC[facility] PPO / Product Type: *No Product type* / Secondary Insurance: N/A ; Prescription Coverage: Yes Preferred Pharmacy: [facility] - [place], [place] - [address] [address] [facility] [address] - [place], [place] - [address] [address] [place], [place] - [address] [place] [address] [address] [facility] [address] [facility] [address] [place] Status: Patient is a : No Primary Care Provider confirmed: JUSTIN Roberson [phone] Patient/Caregiver Goals of Treatment: patient will need [...] are placed. Provided patient with [facility] Star Quality Rating handout. They have requested referrals to: [facility] [employer]. [address] [place] [address] Expected date of discharge: TBD Referral routed to the [employer] for matching with agency/vendor and to provide [...] care as indicated. Penny ROSAS, RN Phone: [phone] Pager: [phone] * Consult Note - Stacey Thomas MD [...] extremity aching prompting him to go to [facility]. The groin pain dissipated. About a week later on 09/26 he developed left-sided groin pain prompting him to go to [facility] once again. Lab work notable for WBC count of 21, lactic acid 3.6. He underwent evaluation with a CT scan demonstrating an abscess from the left groin operative site the entire left of the graft down by the knee. He was transferred to [facility] for further care and he was initiated [...] admitted to SICU as a transfer from [facility] for suspected graft infection/sepsis. A/Ox4, able to [...] Torres MD - 09/26/2024 4:50 PM EST [facility] Operative Note Patient Name: Geovanna Dixon Jr. 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 Use as instructed Indications: [id number] each 1 FreeStyle Lancets 28 gauge Misc [...] 2nd toe amputation who was transferred from [facility] given concern for infected left fem-BK popliteal [...] PM EST Office [place] [address] Isabela Hayward APRN [facility] [place] [address] 11/10/2024 10:00 AM EST Office Visit [place] [address] Dai Whitman, CLINICAL PROJECT ASSISTANT 11/21/2024 2:15 PM EST Office [place] [address] Dayanara Grover MD [facility] [place] [address] Pending Results Name Type Priority Associated Diagnoses [...] Debridement Muscle And Fascia 20 Sq Cm/< (11298) 10/02/2024 1:28 PM EST Infected LLE graft [...] CENTER EGFR - External 104.05 [facility] Anion Gap - External 11.6(H) [facility] Sodium - External 141 [facility] Potassium - External 4.3 [facility] Chloride - External 103 [facility] CO2 - External 26.4 [facility] Calcium - External 9.0 [facility] [...] Hernandez MD CHEMISTRY ORDERABLES Performing Organization Address City/[facility]/ZIP Co de Phone Number [address] [phone] * CK (10/16/2024) CK, Total - External 39 [facility] Blood VENOUS BLOOD SPECIMEN / Unknown 10/16/2024 Amaya Hernandez MD CHEMISTRY ORDERABLES [address] [phone] * (ABNORMAL) CBC (with Diff) (10/16/2024) WBC - External 10.99(H) [facility] RBC - External 3.71(L) [facility] Hemoglobin - External 10.8(L) [facility] Hematocrit - External 33.8(L) [facility] MCV - External 91 [facility] MCH - External 29.1 [facility] MCHC - External 32.0 [facility] RDWCV - External 14.2(H) [facility] Platelets - External 512(H) [facility] MPV - External 9.8 [facility] NRBC % - External 0.0 [facility] [...] MD HEMATOLOGY ORDERABLE S Performing Organization Address City/State/[facility] Co de Phone Number [facility] [address] [place] [phone] * POC, GLUCOSE (10/10/2024 4:27 PM EST) Glucometer, POC 172 65 - 199 mg/dL 10/10/2024 4:27 PM EST [facility] Comment:Supplemental ranges: <140 mg/dL before meals <180 mg/dL all other times of the day. Blood CAPILLARY BLOOD / Unknown 10/10/2024 4:27 PM EST 10/10/2024 4:27 PM EST Hayley Torres MD POINT OF CARE TEST O RDERABLES Performing Organization Address [facility] Co de Phone Number [facility] [place] [address] * POC, GLUCOSE (10/10/2024 11:10 AM EST) Glucometer, POC 174 65 - 199 mg/dL 10/10/2024 11:11 AM EST [facility] Comment:Supplemental ranges: <140 mg/dL before meals <180 mg/dL all other times of the day. Blood CAPILLARY BLOOD / Unknown 10/10/2024 11:10 AM EST 10/10/2024 11:11 AM EST Hayley Torres MD POINT OF CARE TEST O GILDA Performing Organization Address [facility] de Phone Number [facility] [place] [address] * POC, GLUCOSE (10/10/2024 7:46 AM EST) Glucometer, POC 141 65 - 199 mg/dL 10/10/2024 7:46 AM EST [facility] Comment:Supplemental ranges: <140 mg/dL before meals <180 mg/dL all other times of the day. Blood CAPILLARY BLOOD / Unknown 10/10/2024 7:46 AM EST 10/10/2024 7:46 AM EST Hayley Torres MD POINT OF CARE TEST O RDERAHERNANDEZ Performing Organization Address [facility] Co de Phone Number [facility] [place] [address] * POC, GLUCOSE (10/10/2024 6:11 AM EST) Glucometer, POC 127 65 - 199 mg/dL 10/10/2024 6:11 AM EST [facility] Comment:Supplemental ranges: <140 mg/dL before meals <180 mg/dL all other times of the day. Blood CAPILLARY BLOOD / Unknown 10/10/2024 6:11 AM EST 10/10/2024 6:11 AM EST Hayley Torres MD POINT OF CARE TEST O RDERABLES [facility] [place] [address] * CK (10/10/2024 12:33 AM EST) Pathologist [facility] Creatine Kinase 32 0 - 200 unit/L 10/10/2024 8:54 AM [facility] Blood VENOUS BLOOD SPECIMEN / Unknown Venipuncture / Unknown 10/10/2024 12:33 AM EST 10/10/2024 12:43 AM EST María Carranza APRN CHEMISTRY ORDER RANDELL Performing Organization Address City/[facility]/ZIP Co de Phone Number [facility] [place] [address] * (ABNORMAL) CBC (with Diff) (10/10/2024 12:33 AM EST) [facility] White Blood Cell 11.57(H) 4.00 - 9.50 [...] MD HEMATOLOGY ORDERABLE S [facility] [place] [address] * (ABNORMAL) Basic Metabolic Panel (10/10/2024 12:33 [...] mL/min/1. 73 m?? 10/10/2024 1:12 AM EST [facility] Comment: This [...] Torres MD CHEMISTRY ORDERABLES [facility] [place] [address] * Phosphorus (10/10/2024 12:33 AM EST) Phosphorus 3.8 2.5 - 4.5 mg/dL 10/10/2024 1:12 AM EST [facility] Blood VENOUS BLOOD SPECIMEN / Unknown Venipuncture / Unknown 10/10/2024 12:33 AM EST 10/10/2024 12:43 AM EST Hayley Torres MD CHEMISTRY ORDERABLES [facility] [place] [address] * Magnesium (10/10/2024 12:33 AM EST) Magnesium 0.81 0.69 - 1.07 mMol/L 10/10/2024 1:12 AM EST [facility] Blood VENOUS BLOOD SPECIMEN / Unknown Venipuncture / Unknown 10/10/2024 12:33 AM EST 10/10/2024 12:43 AM EST Hayley Torres MD CHEMISTRY ORDERABLES Performing Organization Address City/[facility]/ZIP Co de Phone Number [facility] [place] [address] * POC, GLUCOSE (10/10/2024 12:31 AM EST) Glucometer, POC 119 65 - 199 mg/dL 10/10/2024 12:32 AM EST [facility] Comment:Supplemental ranges: <140 mg/dL before meals <180 mg/dL all other times of the day. Blood CAPILLARY BLOOD / Unknown 10/10/2024 12:31 AM EST 10/10/2024 12:32 AM EST Hayley Torres MD POINT OF CARE TEST O RDERABLES Performing Organization Address [facility] Co de Phone Number [facility] [place] [address] * POC, GLUCOSE (10/09/2024 8:16 PM EST) [...] [facility]/ZIP Co de Phone Number [facility] [place] [address] * POC, GLUCOSE (10/09/2024 3:57 PM EST) Glucometer, POC 120 65 - 199 mg/dL 10/09/2024 3:57 PM EST [facility] Comment:Supplemental ranges: <140 mg/dL before meals <180 mg/dL all other times of the day. Blood CAPILLARY BLOOD / Unknown 10/09/2024 3:57 PM EST 10/09/2024 3:57 PM EST Hayley Torres MD POINT OF CARE TEST O RDERAHERNANDEZ [facility] [place] [address] * Place PICC Line: Contact Vascular Access Page [phone] Extremity to exclude: No restrictions; Is PICC [...] to the planned procedure. Hand Hygiene: The field pipelines supervisor did perform hand hygiene prior to line insertion. Catheter type: PICC Lot number: [id number] Procedure Technique: Skin was prepped with chlorhexidine. [...] Guidance (IV Team) (10/09/2024 1:55 PM EST) [employer] WORKSTATION ID [id number] [facility] Anatomical Region Laterality Modality N/A Radio [...] who have questions please contact the health ostomy care nurse that requested your imaging first. ? Electronically signed by: Terell Salvador MD, [facility] ([phone]), at 10/09/2024 3:30 PM Narrative 10/09/2024 3:30 [...] patients who have questions please contactthe health ostomy care nurse that requested your imaging first. Electronically signed by: Terell Salvador MD, [facility]([phone]), at 10/09/2024 3:30 PM María Carranza APRN [facility] FRANCHESKA GILBERT * POC, GLUCOSE (10/09/2024 11:40 AM EST) [facility] Glucometer, POC 180 65 - 199 mg/dL 10/09/2024 11:40 AM EST [facility] Comment:Supplemental ranges: <140 mg/dL before meals <180 mg/dL all other times of the day. Blood CAPILLARY BLOOD / Unknown 10/09/2024 11:40 AM EST 10/09/2024 11:41 AM EST Hayley Torres MD POINT OF CARE TEST O RDERAHERNANDEZ Performing Organization Address [facility] de Phone Number [facility] [place] [address] * (ABNORMAL) POC, GLUCOSE (10/09/2024 7:35 AM EST) Glucometer, POC 215(H) 65 - 199 mg/dL 10/09/2024 7:36 AM EST [facility] Comment:Supplemental ranges: <140 mg/dL before meals <180 mg/dL all other times of the day. Blood CAPILLARY BLOOD / Unknown 10/09/2024 7:35 AM EST 10/09/2024 7:36 AM EST Hayley Torres MD POINT OF CARE TEST O GILDA Performing Organization Address [facility] de Phone Number [facility] [place] [address] * POC, GLUCOSE (10/09/2024 4:26 AM EST) Glucometer, POC 175 65 - 199 mg/dL 10/09/2024 4:26 AM EST [facility] Comment:Supplemental ranges: <140 mg/dL before meals <180 mg/dL all other times of the day. Blood CAPILLARY BLOOD / Unknown 10/09/2024 4:26 AM EST 10/09/2024 4:26 AM EST Hayley Torres MD POINT OF CARE TEST O GILDA Performing Organization Address [facility] Co de Phone Number [facility] [place] [address] * (ABNORMAL) CBC (with Diff) (10/09/2024 12:45 AM EST) White Blood Cell 11.27(H) 4.00 - 9.50 x10(3)/mc L 10/09/2024 1:31 AM EST [facility] Red Blood Cell 3.74(L) 4.58 [...] MD HEMATOLOGY ORDERABLE S [facility] [place] [address] * (ABNORMAL) Basic Metabolic Panel (10/09/2024 12:45 [...] Torres MD CHEMISTRY ORDERABLES [facility] [place] [address] * Phosphorus (10/09/2024 12:45 AM EST) Phosphorus 3.9 2.5 - 4.5 mg/dL 10/09/2024 1:54 AM EST [facility] Blood VENOUS BLOOD SPECIMEN / Unknown Venipuncture / Unknown 10/09/2024 12:45 AM EST 10/09/2024 1:27 AM EST Hayley Torres MD CHEMISTRY ORDERABLES Performing Organization Address City/[facility]/ZIP Co de Phone Number [facility] [place] [place] [address] * Magnesium (10/09/2024 12:45 AM EST) Magnesium 0.80 0.69 - 1.07 mMol/L 10/09/2024 1:54 AM EST [facility] Blood VENOUS BLOOD SPECIMEN / Unknown Venipuncture / Unknown 10/09/2024 12:45 AM EST 10/09/2024 1:27 AM EST Hayley Torres MD CHEMISTRY ORDERABLES Performing Organization Address City/[facility]/ZIP Co de Phone Number [facility] [place] [place] [address] * POC, GLUCOSE (10/09/2024 12:11 AM EST) [facility] Signature Glucometer, POC 157 65 - [...] [facility]ZIP Co de Phone Number [facility] [place] [place] [address] * POC, GLUCOSE (10/08/2024 7:25 PM EST) [...] [facility]/ZIP Co de Phone Number [facility] [place] [address] * POC, GLUCOSE (10/08/2024 5:54 PM EST) Glucometer, POC 198 65 - 199 mg/dL 10/08/2024 5:54 PM EST [facility] Comment:Supplemental ranges: <140 mg/dL before meals <180 mg/dL all other times of the day. Blood CAPILLARY BLOOD / Unknown 10/08/2024 5:54 PM EST 10/08/2024 5:54 PM EST Hayley Torres MD POINT OF CARE TEST O GILDA Performing Organization Address [facility] Co de Phone Number [facility] [place] [place] [address] * (ABNORMAL) POC, GLUCOSE (10/08/2024 4:08 PM [...] [facility]ZIP Co de Phone Number [facility] [place] [address] * POC, GLUCOSE (10/08/2024 12:44 PM EST) [...] [facility]/ZIP Co de Phone Number [facility] [place] [address] * POC, GLUCOSE (10/08/2024 8:30 AM EST) Glucometer, POC 172 65 - 199 mg/dL 10/08/2024 8:30 AM EST [facility] Comment:Supplemental ranges: <140 mg/dL before meals <180 mg/dL all other times of the day. Blood CAPILLARY BLOOD / Unknown 10/08/2024 8:30 AM EST 10/08/2024 8:30 AM EST Hayley Torres MD POINT OF CARE TEST O GILDA [facility] [place] [place] [address] * Vancomycin Level, Random (10/08/2024 5:59 AM EST) Vancomycin, Random 6.8 mg/L 2023 7:58 AM EST [facility] Comment:This level is for de termination of the patient's vancomycin yimx-zkmad-jcs-curve (AUC) value. Contact the inpatient pharmacy for interpretation. Blood VENOUS BLOOD SPECIMEN / Unknown Venipuncture / Unknown 10/08/2024 5:59 AM EST 10/08/2024 7:29 AM EST Hayley Torres MD CHEMISTRY ORDERABLES Performing Organization Address City/[facility]/ZIP Co de Phone Number [facility] [place] [place] [address] * POC, GLUCOSE (10/08/2024 4:02 AM EST) Pathologist [facility] Glucometer, POC 163 65 - 199 mg/dL 10/08/2024 4:02 AM [facility] Comment:Supplemental ranges: <140 mg/dL before meals <180 mg/dL all other times of the day. Blood CAPILLARY BLOOD / Unknown 10/08/2024 4:02 AM EST 10/08/2024 4:02 AM EST Hayley Torres MD POINT OF CARE TEST O RDERABLES Performing Organization Address [facility] Co de Phone Number [facility] [place] [place] [address] * (ABNORMAL) CBC (with Diff) (10/08/2024 12:08 AM EST) [facility] White Blood Cell 10.35(H) 4.00 - 9.50 [...] MD HEMATOLOGY ORDERABLE S [facility] [place] [address] * (ABNORMAL) Basic Metabolic Panel (10/08/2024 12:08 [...] - 15 mMol/L 10/08/2024 12:50 AM EST [facility] Calcium 9.2 8.5 - 10.5 mg/dL 10/08/2024 12:50 AM EST [facility] Est Glomerular Filtration Rate - Male 118 mL/min/1. 73 m?? 10/08/2024 12:50 AM EST [facility] Comment: This [...] Torres MD CHEMISTRY ORDERABLES [facility] [place] [address] * Phosphorus (10/08/2024 12:08 AM EST) Phosphorus 3.4 2.5 - 4.5 mg/dL 10/08/2024 12:50 AM EST [facility] Blood VENOUS BLOOD SPECIMEN / Unknown Venipuncture / Unknown 10/08/2024 12:08 AM EST 10/08/2024 12:23 AM EST Hayley Torres MD CHEMISTRY ORDERABLES [facility] [place] [address] * Magnesium (10/08/2024 12:08 AM EST) Magnesium 0.85 0.69 - 1.07 mMol/L 10/08/2024 12:50 AM EST [facility] Blood VENOUS BLOOD SPECIMEN / Unknown Venipuncture / Unknown 10/08/2024 12:08 AM EST 10/08/2024 12:23 AM EST Hayley Torres MD CHEMISTRY ORDERABLES Performing Organization Address [facility] Co de Phone Number [facility] [place] [address] * CK (10/08/2024 12:08 AM EST) Creatine Kinase 24 0 - 200 unit/L 10/08/2024 12:50 AM EST [facility] Blood VENOUS BLOOD SPECIMEN / Unknown Venipuncture / Unknown 10/08/2024 12:08 AM EST 10/08/2024 12:23 AM EST Hayley Torrse MD CHEMISTRY ORDERABLES Performing Organization Address [facility] Co de Phone Number [facility] [place] [place] [address] * POC, GLUCOSE (10/08/2024 12:05 AM EST) Glucometer, POC 100 65 - 199 mg/dL 10/08/2024 12:05 AM EST [facility] Comment:Supplemental ranges: <140 mg/dL before meals <180 mg/dL all other times of the day. Blood CAPILLARY BLOOD / Unknown 10/08/2024 12:05 AM EST 10/08/2024 12:05 AM EST Hayley Torres MD POINT OF CARE TEST O RDERABLES Performing Organization Address [facility] Co de Phone Number [facility] [place] [place] [address] * POC, GLUCOSE (10/07/2024 8:29 PM EST) Glucometer, POC 107 65 - 199 mg/dL 10/07/2024 8:30 PM EST [facility] Comment:Supplemental ranges: <140 mg/dL before meals <180 mg/dL all other times of the day. Blood CAPILLARY BLOOD / Unknown 10/07/2024 8:29 PM EST 10/07/2024 8:30 PM EST Hayley Torres MD POINT OF CARE TEST O RDERAHERNANDEZ Performing Organization Address City/[facility]/ZIP Co de Phone Number [facility] [place] [address] * POC, GLUCOSE (10/07/2024 4:33 PM EST) Glucometer, POC 129 65 - 199 mg/dL 10/07/2024 4:33 PM EST [facility] Comment:Supplemental ranges: <140 mg/dL before meals <180 mg/dL all other times of the day. Blood CAPILLARY BLOOD / Unknown 10/07/2024 4:33 PM EST 10/07/2024 4:34 PM EST Hayley Torres MD POINT OF CARE TEST O GILDA Performing Organization Address [facility] Co de Phone Number [facility] [place] [place] [address] * (ABNORMAL) POC, GLUCOSE (10/07/2024 10:58 AM [...] [facility]/ZIP Co de Phone Number [facility] [place] [address] * (ABNORMAL) POC, GLUCOSE (10/07/2024 7:42 AM EST) Glucometer, POC 201(H) 65 - 199 mg/dL 10/07/2024 7:42 AM EST [facility] Comment:Supplemental ranges: <140 mg/dL before meals <180 mg/dL all other times of the day. Blood CAPILLARY BLOOD / Unknown 10/07/2024 7:42 AM EST 10/07/2024 7:43 AM EST Hayley Torres MD POINT OF CARE TEST O GILDA Performing Organization Address [facility]/ZIP Co de Phone Number [facility] [place] [place] [address] * POC, GLUCOSE (10/07/2024 3:58 AM EST) [facility] Glucometer, POC 150 65 - 199 mg/dL 10/07/2024 3:58 AM EST [facility] Comment:Supplemental ranges: <140 mg/dL before meals <180 mg/dL all other times of the day. Blood CAPILLARY BLOOD / Unknown 10/07/2024 3:58 AM EST 10/07/2024 3:58 AM EST Hayley Torres MD POINT OF CARE TEST O GILDA Performing Organization Address City/[facility]/ZIP Co de Phone Number [facility] [place] [address] * (ABNORMAL) CBC (with Diff) (10/07/2024 12:06 AM EST) [facility] White Blood Cell 11.27(H) 4.00 - 9.50 x10(3)/mc L 10/07/2024 12:19 AM EST [facility] Red Blood Cell 3.47(L) 4.58 - 5.54 x10(6)/mc L 10/07/2024 12:19 AM EST [facility] Hemoglobin 10.1(L) 13.7 - 16.5 g/dL 10/07/2024 12:19 AM EST [facility] Hematocrit 30.9(L) 40.5 - 48.5 [...] 0.90 x10(3)/mc L 10/07/2024 12:19 AM EST [facility] Eos % 1.5 % 10/07/2024 [...] MD HEMATOLOGY ORDERABLE S [facility] [place] [address] * (ABNORMAL) Basic Metabolic Panel (10/07/2024 12:06 [...] - 5.0 mMol/L 10/07/2024 12:40 AM EST [facility] Chloride 104 98 - 107 mMol/L 10/07/2024 12:40 AM EST [facility] Carbon Dioxide 25 22 - 31 mMol/L 10/07/2024 12:40 AM EST [facility] Anion Gap 10 5 - 15 mMol/L 10/07/2024 12:40 AM EST [facility] Calcium 9.0 8.5 - 10.5 mg/dL 10/07/2024 12:40 AM EST [facility] Est Glomerular Filtration Rate - Male 117 mL/min/1. 73 m?? 10/07/2024 12:40 AM EST [facility] Comment: This [...] Torres MD CHEMISTRY ORDERABLES [facility] [place] [address] * Phosphorus (10/07/2024 12:06 AM EST) Phosphorus 4.2 2.5 - 4.5 mg/dL 10/07/2024 12:40 AM EST [facility] Blood VENOUS BLOOD SPECIMEN / Unknown Venipuncture / Unknown 10/07/2024 12:06 AM EST 10/07/2024 12:11 AM EST Hayley Torres MD CHEMISTRY ORDERABLES Performing Organization Address [facility] Co de Phone Number [facility] [place] [address] * Magnesium (10/07/2024 12:06 AM EST) Magnesium 0.85 0.69 - 1.07 mMol/L 10/07/2024 12:40 AM EST [facility] Blood VENOUS BLOOD SPECIMEN / Unknown Venipuncture / Unknown 10/07/2024 12:06 AM EST 10/07/2024 12:11 AM EST Hayley Torres MD CHEMISTRY ORDERABLES Performing Organization Address [facility] Co de Phone Number [facility] [place] [address] * POC, GLUCOSE (10/07/2024 12:04 AM EST) [...] Organization Address City/[facility] Co de Phone Number [facility] [place] [address] * POC, GLUCOSE (10/06/2024 7:24 PM EST) Glucometer, POC 151 65 - 199 mg/dL 10/06/2024 7:24 PM EST [facility] Comment:Supplemental ranges: <140 mg/dL before meals <180 mg/dL all other times of the day. Blood CAPILLARY BLOOD / Unknown 10/06/2024 7:24 PM EST 10/06/2024 7:24 PM EST Hayley Torres MD POINT OF CARE TEST O GILDA Performing Organization Address [facility] de Phone Number [facility] [place] [address] * POC, GLUCOSE (10/06/2024 5:32 PM EST) Glucometer, POC 126 65 - 199 mg/dL 10/06/2024 5:32 PM EST [facility] Comment:Supplemental ranges: <140 mg/dL before meals <180 mg/dL all other times of the day. Blood CAPILLARY BLOOD / Unknown 10/06/2024 5:32 PM EST 10/06/2024 5:32 PM EST Hayley Torres MD POINT OF CARE TEST O GILDA Performing Organization Address [facility] de Phone Number [facility] [place] [address] * XR PICC Placement Over 5 Years with Imaging Guidance (IV Team) (10/06/2024 3:04 PM EST) WORKSTATION ID [id number] RAD Anatomical Region Laterality Modality N/A Radio [...] who have questions please contact the health ostomy care nurse that requested your imaging first. ? Electronically signed by: Charles Hamilton MD, [facility] ??([phone]), at 10/06/2024 3:43 PM Narrative 10/06/2024 3:43 [...] patients who have questions please contactthe health ostomy care nurse that requested your imaging first. Electronically signed by: Charles Hamilton MD, [facility]([phone]), at 10/06/2024 3:43 PM Hayley Torres MD IMG FLUORO ORDERABLE S * Place PICC Line: Contact Vascular Access Page [phone] Extremity to exclude: No restrictions; Is PICC [...] to the planned procedure. Hand Hygiene: The field pipelines supervisor did perform hand hygiene prior to line insertion. Catheter type: PICC Lot number: [id number] Procedure Technique: Skin was prepped with chlorhexidine. [...] CARE TEST O RDERAHERNANDEZ Performing Organization Address City/[facility]/ZIP Co de Phone Number [facility] [place] [address] * (ABNORMAL) POC, GLUCOSE (10/06/2024 7:34 AM [...] [facility]/ZIP Co de Phone Number [facility] [place] [address] * POC, GLUCOSE (10/06/2024 3:29 AM EST) Glucometer, POC 151 65 - 199 mg/dL 10/06/2024 3:29 AM EST [facility] Comment:Supplemental ranges: <140 mg/dL before meals <180 mg/dL all other times of the day. Blood CAPILLARY BLOOD / Unknown 10/06/2024 3:29 AM EST 10/06/2024 3:29 AM EST Hayley Torres MD POINT OF CARE TEST O GILDA [facility] [place] [address] * Vancomycin Level, Random (10/06/2024 12:03 AM EST) Pathologist [facility] Vancomycin, Random 20.5 mg/L 2023 9:00 AM [facility] Comment:This level is for de termination of the patient's vancomycin elct-wnjfn-cnu-curve (AUC) value. Contact the inpatient pharmacy for interpretation. Blood VENOUS BLOOD SPECIMEN / Unknown Venipuncture / Unknown 10/06/2024 12:03 AM EST 10/06/2024 12:15 AM EST Hayley Torres MD CHEMISTRY ORDERABLES [facility] [place] [place] [address] * (ABNORMAL) CBC (with Diff) (10/06/2024 12:03 AM EST) Pathologist [facility] White Blood Cell 12.26(H) 4.00 - 9.50 [...] MD HEMATOLOGY ORDERABLE S [facility] [place] [address] * Basic Metabolic Panel (10/06/2024 12:03 AM [...] mL/min/1. 73 m?? 10/06/2024 12:44 AM EST [facility] Comment: This [...] Torres MD CHEMISTRY ORDERABLES [facility] [place] [address] * Phosphorus (10/06/2024 12:03 AM EST) Phosphorus 4.3 2.5 - 4.5 mg/dL 10/06/2024 12:44 AM EST [facility] Blood VENOUS BLOOD SPECIMEN / Unknown Venipuncture / Unknown 10/06/2024 12:03 AM EST 10/06/2024 12:15 AM EST Hayley Torres MD CHEMISTRY ORDERABLES [facility] [place] [address] * Magnesium (10/06/2024 12:03 AM EST) Magnesium 0.83 0.69 - 1.07 mMol/L 10/06/2024 12:44 AM EST [facility] Blood VENOUS BLOOD SPECIMEN / Unknown Venipuncture / Unknown 10/06/2024 12:03 AM EST 10/06/2024 12:15 AM EST Hayley Torres MD CHEMISTRY ORDERABLES Performing Organization Address [facility] Co de Phone Number [facility] [place] [address] * POC, GLUCOSE (10/06/2024 12:02 AM EST) Glucometer, POC 98 65 - 199 mg/dL 10/06/2024 12:02 AM EST [facility] Comment:Supplemental ranges: <140 mg/dL before meals <180 mg/dL all other times of the day. Blood CAPILLARY BLOOD / Unknown 10/06/2024 12:02 AM EST 10/06/2024 12:02 AM EST Hayley Torres MD POINT OF CARE TEST O RDERABLES Performing Organization Address [facility] Co de Phone Number [facility] [place] [address] * POC, GLUCOSE (10/05/2024 7:22 PM EST) Glucometer, POC 186 65 - 199 mg/dL 10/05/2024 7:23 PM EST [facility] Comment:Supplemental ranges: <140 mg/dL before meals <180 mg/dL all other times of the day. Blood CAPILLARY BLOOD / Unknown 10/05/2024 7:22 PM EST 10/05/2024 7:23 PM EST Hayley Torres MD POINT OF CARE TEST O RDTYESHA Performing Organization Address City/[facility] Co de Phone Number [facility] [place] [address] * POC, GLUCOSE (10/05/2024 5:35 PM EST) [...] Organization Address City/[facility] Co de Phone Number [facility] [place] [address] * POC, GLUCOSE (10/05/2024 3:57 PM EST) Glucometer, POC 141 65 - 199 mg/dL 10/05/2024 3:57 PM EST [facility] Comment:Supplemental ranges: <140 mg/dL before meals <180 mg/dL all other times of the day. Blood CAPILLARY BLOOD / Unknown 10/05/2024 3:57 PM EST 10/05/2024 3:57 PM EST Hayley Torres MD POINT OF CARE TEST O GILDA Performing Organization Address [facility] Co de Phone Number [facility] [place] [place] [address] * POC, GLUCOSE (10/05/2024 11:50 AM EST) [...] [facility]/ZIP Co de Phone Number [facility] [place] [address] * POC, GLUCOSE (10/05/2024 7:51 AM EST) [...] Organization Address City/[facility] Co de Phone Number [facility] [place] [address] * POC, GLUCOSE (10/05/2024 4:18 AM EST) Glucometer, POC 147 65 - 199 mg/dL 10/05/2024 4:18 AM EST [facility] Comment:Supplemental ranges: <140 mg/dL before meals <180 mg/dL all other times of the day. Blood CAPILLARY BLOOD / Unknown 10/05/2024 4:18 AM EST 10/05/2024 4:18 AM EST Hayley Torres MD POINT OF CARE TEST O GILDA Performing Organization Address [facility] Co de Phone Number [facility] [place] [place] [address] * (ABNORMAL) CBC (with Diff) (10/04/2024 11:50 PM EST) White Blood Cell 12.73(H) 4.00 - 9.50 x10(3)/mc L 10/05/2024 12:10 AM EST [facility] Red Blood Cell 3.45(L) 4.58 - 5.54 x10(6)/mc L 10/05/2024 12:10 AM EST [facility] Hemoglobin 9.8(L) 13.7 - 16.5 g/dL 10/05/2024 12:10 AM [facility] Hematocrit 30.6(L) 40.5 - 48.5 % 10/05/2024 12:10 AM EST [facility] Mean Cell Volume 88.7 82.9 [...] 0.90 x10(3)/mc L 10/05/2024 12:10 AM EST [facility] Eos % 1.6 % 10/05/2024 [...] MD HEMATOLOGY ORDERABLE S [facility] [place] [address] * (ABNORMAL) Basic Metabolic Panel (10/04/2024 11:50 [...] Torres MD CHEMISTRY ORDERABLES [facility] [place] [address] * Phosphorus (10/04/2024 11:50 PM EST) Phosphorus 4.2 2.5 - 4.5 mg/dL 10/05/2024 12:35 AM [facility] Blood VENOUS BLOOD SPECIMEN / Unknown Venipuncture / Unknown 10/04/2024 11:50 PM EST 10/05/2024 12:03 AM EST Hayley Torres MD CHEMISTRY ORDERABLES Performing Organization Address City/[facility] Co de Phone Number [facility] [place] [address] * Magnesium (10/04/2024 11:50 PM EST) Magnesium 0.89 0.69 - 1.07 mMol/L 10/05/2024 12:35 AM EST [facility] Blood VENOUS BLOOD SPECIMEN / Unknown Venipuncture / Unknown 10/04/2024 11:50 PM EST 10/05/2024 12:03 AM EST Hayley Torres MD CHEMISTRY ORDERABLES Performing Organization Address [facility] Co de Phone Number [facility] [place] [address] * POC, GLUCOSE (10/04/2024 11:36 PM EST) [...] Organization Address City/[facility] Co de Phone Number [facility] [place] [address] * POC, GLUCOSE (10/04/2024 7:32 PM EST) [...] [facility]/ZIP Co de Phone Number [facility] [place] [address] * EKG 12 Lead (10/04/2024 7:14 PM EST) Ventricular rate 81 BPM MUSE SYSTEM Atrial Rate 81 BPM MUSE SYSTEM P-R Interval 174 ms MUSE SYSTEM QRS Duration 112 ms MUSE SYSTEM Q-T Interval 422 ms MUSE SYSTEM QTC Calculated (Bezet) 490 ms MUSE SYSTEM Calculated P [place] 34 degrees MUSE SYSTEM Calculated R [place] 11 degrees MUSE SYSTEM Calculated T [place] 59 degrees MUSE SYSTEM INTERPRETATION Normal sinus rhythm Cannot rule out Inferior infarct , age undetermined Nonspecific T wave abnormality Borderline ECG When compared with ECG of 29-MAY-2024 14:51, Nonspecific T wave abnormality now evident in Lateral leads Confirmed by MD Robert, Deandre Guadarrama ([id number]) on 10/05/2024 3:35:42 PM MUSE SYSTEM 10/04/2024 7:14 PM EST 10/05/2024 3:35 PM EST Hayley Torres MD ECG ORDERABLES Performing Organization Address [facility]/ZIP Co de Phone Number MUSE SYSTEM * [...] [facility]/ZIP Co de Phone Number [facility] [place] [address] * POC, GLUCOSE (10/04/2024 4:49 PM EST) Glucometer, POC 70 65 - 199 mg/dL 10/04/2024 4:50 PM EST [facility] Comment:Supplemental ranges: <140 mg/dL before meals <180 mg/dL all other times of the day. Blood CAPILLARY BLOOD / Unknown 10/04/2024 4:49 PM EST 10/04/2024 4:50 PM EST Hayley Torres MD POINT OF CARE TEST O GILDA Performing Organization Address [facility] Co de Phone Number [facility] [place] [address] * POC, GLUCOSE (10/04/2024 11:49 AM EST) Glucometer, POC 93 65 - 199 mg/dL 10/04/2024 11:49 AM EST [facility] Comment:Supplemental ranges: <140 mg/dL before meals <180 mg/dL all other times of the day. Blood CAPILLARY BLOOD / Unknown 10/04/2024 11:49 AM EST 10/04/2024 11:49 AM EST Hayley Torres MD POINT OF CARE TEST O GILDA Performing Organization Address [facility] Co de Phone Number [facility] [place] [address] * Vancomycin, trough (10/04/2024 7:53 AM EST) Vancomycin, Trough 19.8 10.0 - 20.0 mg/L 10/04/2024 9:16 AM EST [facility] Comment: Varies according to infection source. Blood VENOUS BLOOD SPECIMEN / Unknown Venipuncture / Unknown 10/04/2024 7:53 AM EST 10/04/2024 8:11 AM EST Hayley Torres MD CHEMISTRY ORDERABLES Performing Organization Address City/[facility] Co de Phone Number [facility] [place] [address] * POC, GLUCOSE (10/04/2024 7:51 AM EST) [...] [facility]/ZIP Co de Phone Number [facility] [place] [address] * POC, GLUCOSE (10/04/2024 3:53 AM EST) [...] [facility]/ZIP Co de Phone Number [facility] [place] [address] * (ABNORMAL) CBC (with Diff) (10/04/2024 12:08 AM EST) [facility] White Blood Cell 12.58(H) 4.00 - 9.50 x10(3)/mc L 10/04/2024 12:51 AM EST [facility] Red Blood Cell 3.28(L) 4.58 - 5.54 x10(6)/mc L 10/04/2024 12:51 AM EST [facility] Hemoglobin 9.4(L) 13.7 - 16.5 g/dL 10/04/2024 12:51 AM EST [facility] Hematocrit 28.8(L) 40.5 - 48.5 [...] MD HEMATOLOGY ORDERABLE S [facility] [place] [address] * (ABNORMAL) Basic Metabolic Panel (10/04/2024 12:08 [...] - 145 mMol/L 10/04/2024 12:53 AM EST [facility] Potassium 4.4 3.5 - 5.0 [...] Torres MD CHEMISTRY ORDERABLES [facility] [place] [id number] * Phosphorus (10/04/2024 12:08 AM EST) Phosphorus 3.7 2.5 - 4.5 mg/dL 10/04/2024 12:53 AM [facility] Blood VENOUS BLOOD SPECIMEN / Unknown Venipuncture / Unknown 10/04/2024 12:08 AM EST 10/04/2024 12:15 AM EST Hayley Torres MD CHEMISTRY ORDERABLES Performing Organization Address [facility] Co de Phone Number [facility] [place] [address] * Magnesium (10/04/2024 12:08 AM EST) Magnesium 0.89 0.69 - 1.07 mMol/L 10/04/2024 12:53 AM EST [facility] Blood VENOUS BLOOD SPECIMEN / Unknown Venipuncture / Unknown 10/04/2024 12:08 AM EST 10/04/2024 12:15 AM EST Hayley Torres MD CHEMISTRY ORDERABLES Performing Organization Address [facility] Co de Phone Number [facility] [place] [address] * POC, GLUCOSE (10/04/2024 12:01 AM EST) [...] [facility]/ZIP Co de Phone Number [facility] [place] [address] * POC, GLUCOSE (10/03/2024 7:56 PM EST) Glucometer, POC 123 65 - 199 mg/dL 10/03/2024 7:56 PM EST [facility] Comment:Supplemental ranges: <140 mg/dL before meals <180 mg/dL all other times of the day. Blood CAPILLARY BLOOD / Unknown 10/03/2024 7:56 PM EST 10/03/2024 7:57 PM EST Hayley Torres MD POINT OF CARE TEST O GILDA Performing Organization Address [facility]/ZIP Co de Phone Number [facility] [place] [address] * POC, GLUCOSE (10/03/2024 5:29 PM EST) Glucometer, POC 182 65 - 199 mg/dL 10/03/2024 5:30 PM EST [facility] Comment:Supplemental ranges: <140 mg/dL before meals <180 mg/dL all other times of the day. Blood CAPILLARY BLOOD / Unknown 10/03/2024 5:29 PM EST 10/03/2024 5:30 PM EST Hayley Torres MD POINT OF CARE TEST O GILDA Performing Organization Address [facility] Co de Phone Number [facility] [place] [address] * POC, GLUCOSE (10/03/2024 12:54 PM EST) [...] [facility]/ZIP Co de Phone Number [facility] [place] [address] * POC, GLUCOSE (10/03/2024 7:59 AM EST) [...] [facility]/ZIP Co de Phone Number [facility] [place] [address] * POC, GLUCOSE (10/03/2024 5:32 AM EST) Glucometer, POC 119 65 - 199 mg/dL 10/03/2024 5:32 AM EST [facility] Comment:Supplemental ranges: <140 mg/dL before meals <180 mg/dL all other times of the day. Blood CAPILLARY BLOOD / Unknown 10/03/2024 5:32 AM EST 10/03/2024 5:32 AM EST Hayley Torres MD POINT OF CARE TEST O GILDA Performing Organization Address [facility] Co de Phone Number [facility] [place] [address] * POC, GLUCOSE (10/03/2024 4:16 AM EST) [...] [facility]/ZIP Co de Phone Number [facility] [place] [address] * (ABNORMAL) POC, GLUCOSE (10/03/2024 2:02 AM EST) Glucometer, POC 225(H) 65 - 199 mg/dL 10/03/2024 2:02 AM [facility] Comment:Supplemental ranges: <140 mg/dL before meals <180 mg/dL all other times of the day. Blood CAPILLARY BLOOD / Unknown 10/03/2024 2:02 AM EST 10/03/2024 2:02 AM EST Hayley Torres MD POINT OF CARE TEST O RDERABLES [facility] [place] [address] * (ABNORMAL) CBC (with Diff) (10/03/2024 12:27 [...] MD HEMATOLOGY ORDERABLE S [facility] [place] [address] * (ABNORMAL) Basic Metabolic Panel (10/03/2024 12:27 [...] Torres MD CHEMISTRY ORDERABLES Performing Organization Address City/[facility]/ZIP Co de Phone Number [facility] [place] [address] * Phosphorus (10/03/2024 12:27 AM EST) Phosphorus 3.5 2.5 - 4.5 mg/dL 10/03/2024 1:14 AM EST [facility] Blood VENOUS BLOOD SPECIMEN / Unknown Venipuncture / Unknown 10/03/2024 12:27 AM EST 10/03/2024 12:47 AM EST Hayley Torres MD CHEMISTRY ORDERABLES [facility] [place] [address] * Magnesium (10/03/2024 12:27 AM EST) Magnesium 0.83 0.69 - 1.07 mMol/L 10/03/2024 1:14 AM EST [facility] Blood VENOUS BLOOD SPECIMEN / Unknown Venipuncture / Unknown 10/03/2024 12:27 AM EST 10/03/2024 12:47 AM EST Hayley Torres MD CHEMISTRY ORDERABLES Performing Organization Address [facility] Co de Phone Number [facility] [place] [address] * (ABNORMAL) POC, GLUCOSE (10/03/2024 12:13 AM EST) Glucometer, POC 255(H) 65 - 199 mg/dL 10/03/2024 12:14 AM EST [facility] Comment:Supplemental ranges: <140 mg/dL before meals <180 mg/dL all other times of the day. Blood CAPILLARY BLOOD / Unknown 10/03/2024 12:13 AM EST 10/03/2024 12:14 AM EST Hayley Torres MD POINT OF CARE TEST O RDERAHERNANDEZ Performing Organization Address [facility] Co de Phone Number [facility] [place] [address] * POC, GLUCOSE (10/02/2024 8:17 PM EST) Glucometer, POC 177 65 - 199 mg/dL 10/02/2024 8:17 PM EST [facility] Comment:Supplemental ranges: <140 mg/dL before meals <180 mg/dL all other times of the day. Blood CAPILLARY BLOOD / Unknown 10/02/2024 8:17 PM EST 10/02/2024 8:17 PM EST Hayley Torres MD POINT OF CARE TEST O GILDA Performing Organization Address [facility] Co de Phone Number [facility] [place] [address] * POC, GLUCOSE (10/02/2024 6:22 PM EST) [...] [facility]/ZIP Co de Phone Number [facility] [place] [address] * POC, GLUCOSE (10/02/2024 5:01 PM EST) Glucometer, POC 104 65 - 199 mg/dL 10/02/2024 5:01 PM EST [facility] Comment:Supplemental ranges: <140 mg/dL before meals <180 mg/dL all other times of the day. Blood CAPILLARY BLOOD / Unknown 10/02/2024 5:01 PM EST 10/02/2024 5:01 PM EST Hayley Torres MD POINT OF CARE TEST O GILDA Performing Organization Address [facility] Co de Phone Number [facility] [place] [address] * POC, GLUCOSE (10/02/2024 3:05 PM EST) Glucometer, POC 113 65 - 199 mg/dL 10/02/2024 3:06 PM EST [facility] Comment:Supplemental ranges: <140 mg/dL before meals <180 mg/dL all other times of the day. Blood CAPILLARY BLOOD / Unknown 10/02/2024 3:05 PM EST 10/02/2024 3:06 PM EST Hayley Torres MD POINT OF CARE TEST O GILDA [facility] [place] [address] * POC, GLUCOSE (10/02/2024 11:12 AM EST) [...] Organization Address City/[facility] Co de Phone Number [facility] [place] [address] * POC, GLUCOSE (10/02/2024 8:12 AM EST) Glucometer, POC 131 65 - 199 mg/dL 10/02/2024 8:12 AM EST [facility] Comment:Supplemental ranges: <140 mg/dL before meals <180 mg/dL all other times of the day. Blood CAPILLARY BLOOD / Unknown 10/02/2024 8:12 AM EST 10/02/2024 8:12 AM EST Hayley Torres MD POINT OF CARE TEST O GILDA Performing Organization Address [facility] Co de Phone Number [facility] [place] [address] * POC, GLUCOSE (10/02/2024 4:19 AM EST) [...] [facility]/ZIP Co de Phone Number [facility] [place] [address] * Phosphorus (10/02/2024 12:41 AM EST) Phosphorus 4.1 2.5 - 4.5 mg/dL 10/02/2024 1:21 AM EST [facility] Blood VENOUS BLOOD SPECIMEN / Unknown Venipuncture / Unknown 10/02/2024 12:41 AM EST 10/02/2024 12:45 AM EST Hayley Torres MD CHEMISTRY ORDERABLES Performing Organization Address [facility] Co de Phone Number [facility] [place] [address] * Magnesium (10/02/2024 12:41 AM EST) Pathologist [facility] Magnesium 0.85 0.69 - 1.07 mMol/L 10/02/2024 1:21 AM [facility] Blood VENOUS BLOOD SPECIMEN / Unknown Venipuncture / Unknown 10/02/2024 12:41 AM EST 10/02/2024 12:45 AM EST Hayley Torres MD CHEMISTRY ORDERABLES Performing Organization Address City/[facility] Co de Phone Number [facility] [place] [address] * (ABNORMAL) Basic Metabolic Panel (10/02/2024 12:41 AM EST) [facility] Glucose 113 65 - 199 mg/dL 10/02/2024 [...] - 31 mMol/L 10/02/2024 1:21 AM EST [facility] Anion Gap 10 5 - 15 mMol/L 10/02/2024 1:21 AM [facility] Calcium 8.2(L) 8.5 - 10.5 mg/dL 10/02/2024 1:21 AM [facility] Est Glomerular Filtration Rate - Male 125 mL/min/1. 73 m?? 10/02/2024 1:21 AM EST [facility] Comment: This [...] Torres MD CHEMISTRY ORDERABLES Performing Organization Address City/State/[facility] Co de Phone Number [facility] [place] [address] * (ABNORMAL) CBC (with Diff) (10/02/2024 12:41 AM EST) White Blood Cell 10.93(H) 4.00 - 9.50 x10(3)/mc L 10/02/2024 1:04 AM EST [facility] Red Blood Cell 3.30(L) 4.58 [...] 0.40 x10(3)/mc L 10/02/2024 1:04 AM EST [facility] Basophil % 0.8 % 10/02/2024 [...] MD HEMATOLOGY ORDERABLE S [facility] [place] [address] * POC, GLUCOSE (10/02/2024 12:40 AM EST) Glucometer, POC 116 65 - 199 mg/dL 10/02/2024 12:41 AM EST [facility] Comment:Supplemental ranges: <140 mg/dL before meals <180 mg/dL all other times of the day. Blood CAPILLARY BLOOD / Unknown 10/02/2024 12:40 AM EST 10/02/2024 12:41 AM EST Hayley Torres MD POINT OF CARE TEST O RDERABLES [facility] [place] [address] * POC, GLUCOSE (10/01/2024 8:11 PM EST) Glucometer, POC 123 65 - 199 mg/dL 10/01/2024 8:11 PM EST [facility] Comment:Supplemental ranges: <140 mg/dL before meals <180 mg/dL all other times of the day. Blood CAPILLARY BLOOD / Unknown 10/01/2024 8:11 PM EST 10/01/2024 8:11 PM EST Hayley Torres MD POINT OF CARE TEST O GILDA [facility] [place] [address] * POC, GLUCOSE (10/01/2024 6:00 PM EST) Glucometer, POC 112 65 - 199 mg/dL 10/01/2024 6:00 PM EST [facility] Comment:Supplemental ranges: <140 mg/dL before meals <180 mg/dL all other times of the day. Blood CAPILLARY BLOOD / Unknown 10/01/2024 6:00 PM EST 10/01/2024 6:00 PM EST Hayley Torres MD POINT OF CARE TEST O GILDA [facility] [place] [address] * POC, GLUCOSE (10/01/2024 3:53 PM EST) Glucometer, POC 97 65 - 199 mg/dL 10/01/2024 3:53 PM EST [facility] Comment:Supplemental ranges: <140 mg/dL before meals <180 mg/dL all other times of the day. Blood CAPILLARY BLOOD / Unknown 10/01/2024 3:53 PM EST 10/01/2024 3:53 PM EST Hayley Torres MD POINT OF CARE TEST O RDTYESHA Performing Organization Address [facility] Co de Phone Number [facility] [place] [address] * POC, GLUCOSE (10/01/2024 2:25 PM EST) Glucometer, POC 117 65 - 199 mg/dL 10/01/2024 2:25 PM EST [facility] Comment:Supplemental ranges: <140 mg/dL before meals <180 mg/dL all other times of the day. Blood CAPILLARY BLOOD / Unknown 10/01/2024 2:25 PM EST 10/01/2024 2:25 PM EST Hayley Torres MD POINT OF CARE TEST O GILDA Performing Organization Address [facility] de Phone Number [facility] [place] [address] * POC, GLUCOSE (10/01/2024 11:43 AM EST) Glucometer, POC 174 65 - 199 mg/dL 10/01/2024 11:43 AM EST [facility] Comment:Supplemental ranges: <140 mg/dL before meals <180 mg/dL all other times of the day. Blood CAPILLARY BLOOD / Unknown 10/01/2024 11:43 AM EST 10/01/2024 11:43 AM EST Hayley Torres MD POINT OF CARE TEST O GILDA Performing Organization Address [facility] Co de Phone Number [facility] [place] [address] * POC, GLUCOSE (10/01/2024 9:43 AM EST) Glucometer, POC 191 65 - 199 mg/dL 10/01/2024 9:43 AM EST [facility] Comment:Supplemental ranges: <140 mg/dL before meals <180 mg/dL all other times of the day. Blood CAPILLARY BLOOD / Unknown 10/01/2024 9:43 AM EST 10/01/2024 9:43 AM EST Hayley Torres MD POINT OF CARE TEST O GILDA Performing Organization Address [facility]/ZIP Co de Phone Number [facility] [place] [address] * POC, GLUCOSE (10/01/2024 7:48 AM EST) Glucometer, POC 151 65 - 199 mg/dL 10/01/2024 7:48 AM EST [facility] Comment:Supplemental ranges: <140 mg/dL before meals <180 mg/dL all other times of the day. Blood CAPILLARY BLOOD / Unknown 10/01/2024 7:48 AM EST 10/01/2024 7:48 AM EST Hayley Torres MD POINT OF CARE TEST O GILDA Performing Organization Address [facility] Co de Phone Number [facility] [place] [address] * POC, GLUCOSE (10/01/2024 4:25 AM EST) [...] [facility]/ZIP Co de Phone Number [facility] [place] [address] * Phosphorus (10/01/2024 2:02 AM EST) Phosphorus 3.9 2.5 - 4.5 mg/dL 10/01/2024 7:16 AM EST [facility] Blood VENOUS BLOOD SPECIMEN / Unknown Venipuncture / Unknown 10/01/2024 2:02 AM EST 10/01/2024 2:10 AM EST Hayley Torres MD CHEMISTRY ORDERABLES Performing Organization Address City/[facility] Co de Phone Number [facility] [place] [address] * (ABNORMAL) Scan, Peripheral Blood (10/01/2024 2:02 AM EST) Pathologist [facility] RBC Morphology Abnormal 10/01/2024 2:55 AM EST [...] Organization Address City/[facility] Co de Phone Number [facility] [place] [address] * Magnesium (10/01/2024 2:02 AM EST) Pathologist [facility] Magnesium 0.79 0.69 - 1.07 mMol/L 10/01/2024 2:41 AM EST [facility] Blood VENOUS BLOOD SPECIMEN / Unknown Venipuncture / Unknown 10/01/2024 2:02 AM EST 10/01/2024 2:10 AM EST Hayley Torres MD CHEMISTRY ORDERABLES Performing Organization Address City/[facility] Co de Phone Number [facility] [place] [address] * (ABNORMAL) Basic Metabolic Panel (10/01/2024 2:02 [...] Torres MD CHEMISTRY ORDERABLES [facility] [place] [address] * (ABNORMAL) CBC (with Diff) (10/01/2024 2:02 [...] MD HEMATOLOGY ORDERABLE S [facility] [place] [address] * POC, GLUCOSE (10/01/2024 12:32 AM EST) [facility] Signature Glucometer, POC 179 65 - 199 mg/dL 10/01/2024 12:32 AM EST [facility] Comment:Supplemental ranges: <140 mg/dL before meals <180 mg/dL all other times of the day. Blood CAPILLARY BLOOD / Unknown 10/01/2024 12:32 AM EST 10/01/2024 12:32 AM EST Hayley Torres MD POINT OF CARE TEST O RDERABLES [facility] [place] [address] * POC, GLUCOSE (09/30/2024 7:37 PM EST) [...] [facility]/ZIP Co de Phone Number [facility] [place] [address] * POC, GLUCOSE (09/30/2024 4:29 PM EST) [...] [facility]/ZIP Co de Phone Number [facility] [place] [address] * POC, GLUCOSE (09/30/2024 12:16 PM EST) Glucometer, POC 107 65 - 199 mg/dL 09/30/2024 12:16 PM EST [facility] Comment:Supplemental ranges: <140 mg/dL before meals <180 mg/dL all other times of the day. Blood CAPILLARY BLOOD / Unknown 09/30/2024 12:16 PM EST 09/30/2024 12:16 PM EST Hayley Torres MD POINT OF CARE TEST O GILDA [facility] [place] [address] * POC, GLUCOSE (09/30/2024 7:58 AM EST) [...] [facility]/ZIP Co de Phone Number [facility] [place] [address] * Potassium (09/30/2024 6:27 AM EST) Potassium 3.9 3.5 - 5.0 mMol/L 09/30/2024 7:10 AM EST [facility] Blood VENOUS BLOOD SPECIMEN / Unknown Venipuncture / Unknown 09/30/2024 6:27 AM EST 09/30/2024 6:35 AM EST Hayley Torres MD CHEMISTRY ORDERABLES Performing Organization Address City/[facility]/ZIP Co de Phone Number [facility] [place] [address] * Vancomycin, trough (09/30/2024 6:27 AM EST) Vancomycin, Trough 14.1 10.0 - 20.0 mg/L 09/30/2024 7:10 AM EST [facility] Comment: Varies according to infection source. Blood VENOUS BLOOD SPECIMEN / Unknown Venipuncture / Unknown 09/30/2024 6:27 AM EST 09/30/2024 6:35 AM EST Hayley Torres MD CHEMISTRY ORDERABLES Performing Organization Address City/[facility]/ZIP Co de Phone Number [facility] [place] [address] * POC, GLUCOSE (09/30/2024 3:51 AM EST) [...] [facility]/ZIP Co de Phone Number [facility] [place] [address] * Magnesium (09/29/2024 11:52 PM EST) Pathologist [facility] Magnesium 0.85 0.69 - 1.07 mMol/L 09/30/2024 12:25 AM EST [facility] Blood VENOUS BLOOD SPECIMEN / Unknown Venipuncture / Unknown 09/29/2024 11:52 PM EST 09/29/2024 11:58 PM EST Hayley Torres MD CHEMISTRY ORDERABLES Performing Organization Address City/[facility]/ZIP Co de Phone Number [facility] [place] [address] * (ABNORMAL) Basic Metabolic Panel (09/29/2024 11:52 PM EST) Pathologist [facility] Glucose 133 65 - 199 mg/dL 09/30/2024 12:51 AM EST [facility] Comment:Glucose Concentratio n >=200 mg/dL plus symptoms is consistent with Diabetes Mellitus. Blood Urea Nitrogen 9(L) 10 - 20 mg/dL 09/30/2024 12:51 AM EST [facility] Creatinine 0.48(L) 0.80 - 1.50 mg/dL 09/30/2024 12:51 AM EST [facility] Sodium 138 135 - 145 mMol/L 09/30/2024 12:51 AM EST [facility] Potassium 3.4(L) 3.5 - 5.0 [...] Torres MD CHEMISTRY ORDERABLES [facility] [place] [address] * (ABNORMAL) CBC (with Diff) (09/29/2024 11:52 [...] % 23.1 % 09/30/2024 12:02 AM EST [facility] Lymph Absolute 2.20 0.90 - [...] MD HEMATOLOGY ORDERABLE S [facility] [place] [address] * POC, GLUCOSE (09/29/2024 11:51 PM EST) [facility] Signature Glucometer, POC 134 65 - 199 mg/dL 09/29/2024 11:51 PM EST [facility] Comment:Supplemental ranges: <140 mg/dL before meals <180 mg/dL all other times of the day. Blood CAPILLARY BLOOD / Unknown 09/29/2024 11:51 PM EST 09/29/2024 11:51 PM EST Hayley Torres MD POINT OF CARE TEST O RDERABLES Performing Organization Address [facility] Co de Phone Number [facility] [place] [address] * Blood culture (09/29/2024 9:24 PM EST) Blood Culture No growth at 120 hours 10/04/2024 11:01 PM EST [facility] Blood VENOUS BLOOD SPECIMEN / Unknown Venipuncture / Unknown 09/29/2024 9:24 PM EST 09/29/2024 9:34 PM EST Hayley Torres MD MICROBIOLOGY - BLOOD ORDERABLES Performing Organization Address [facility] Co de Phone Number [facility] [place] [address] * Blood culture (09/29/2024 9:24 PM EST) Blood Culture No growth at 120 hours 10/04/2024 11:01 PM EST [facility] Blood VENOUS BLOOD SPECIMEN / Unknown Venipuncture / Unknown 09/29/2024 9:24 PM EST 09/29/2024 9:34 PM EST Marko Dickson MD MICROBIOLOGY - BLOOD ORDERABLES Performing Organization Address City/[facility] Co de Phone Number [facility] [place] [address] * (ABNORMAL) POC, GLUCOSE (09/29/2024 7:35 PM EST) Glucometer, POC 202(H) 65 - 199 mg/dL 09/29/2024 7:36 PM EST [facility] Comment:Supplemental ranges: <140 mg/dL before meals <180 mg/dL all other times of the day. Blood CAPILLARY BLOOD / Unknown 09/29/2024 7:35 PM EST 09/29/2024 7:36 PM EST Hayley Torres MD POINT OF CARE TEST O GILDA Performing Organization Address [facility] Co de Phone Number [facility] [place] [address] * POC, GLUCOSE (09/29/2024 6:48 PM EST) Glucometer, POC 161 65 - 199 mg/dL 09/29/2024 6:48 PM EST [facility] Comment:Supplemental ranges: <140 mg/dL before meals <180 mg/dL all other times of the day. Blood CAPILLARY BLOOD / Unknown 09/29/2024 6:48 PM EST 09/29/2024 6:49 PM EST Hayley Torres MD POINT OF CARE TEST O GILDA Performing Organization Address [facility] Co de Phone Number [facility] [place] [address] * POC, GLUCOSE (09/29/2024 4:06 PM EST) Glucometer, POC 122 65 - 199 mg/dL 09/29/2024 4:06 PM EST [facility] Comment:Supplemental ranges: <140 mg/dL before meals <180 mg/dL all other times of the day. Blood CAPILLARY BLOOD / Unknown 09/29/2024 4:06 PM EST 09/29/2024 4:06 PM EST Hayley Torres MD POINT OF CARE TEST O GILDA Performing Organization Address [facility] Co de Phone Number [facility] [place] [address] * POC, GLUCOSE (09/29/2024 11:49 AM EST) Glucometer, POC 135 65 - 199 mg/dL 09/29/2024 11:49 AM EST [facility] Comment:Supplemental ranges: <140 mg/dL before meals <180 mg/dL all other times of the day. Blood CAPILLARY BLOOD / Unknown 09/29/2024 11:49 AM EST 09/29/2024 11:50 AM EST Hayley Torres MD POINT OF CARE TEST O RDERAHERNANDEZ [facility] [place] [address] * (ABNORMAL) POC, GLUCOSE (09/29/2024 7:53 AM EST) Glucometer, POC 202(H) 65 - 199 mg/dL 09/29/2024 7:53 AM EST [facility] Comment:Supplemental ranges: <140 mg/dL before meals <180 mg/dL all other times of the day. Blood CAPILLARY BLOOD / Unknown 09/29/2024 7:53 AM EST 09/29/2024 7:53 AM EST Hayley Torres MD POINT OF CARE TEST O RDERAHERNANDEZ [facility] [place] [address] * POC, GLUCOSE (09/29/2024 3:45 AM EST) Glucometer, POC 184 65 - 199 mg/dL 09/29/2024 3:46 AM EST [facility] Comment:Supplemental ranges: <140 mg/dL before meals <180 mg/dL all other times of the day. Blood CAPILLARY BLOOD / Unknown 09/29/2024 3:45 AM EST 09/29/2024 3:46 AM EST Hayley Torres MD POINT OF CARE TEST O RDERAHERNANDEZ [facility] [place] [address] * (ABNORMAL) Hemoglobin A1c (09/28/2024 11:51 PM EST) [facility] Hemoglobin A1c 9.7(H) 4.3 - 5.6 % 09/29/2024 9:54 AM [facility] Comment: Per ADA guidelines, without clear [...] red blood cell turnover may not be customer counter representative of glycemic control. Reference Interval: 4.3 - 5.6% 5.7 - 6.4%: Consistent with prediabetes >=6.5%: Consistent with diagnosis of diabetes mellitus Estimated Average Glucose 232 mg/dL 09/29/2024 9:54 AM [facility] Blood VENOUS BLOOD SPECIMEN / Unknown Venipuncture / Unknown 09/28/2024 11:51 PM EST 09/28/2024 11:56 PM EST Hayley Torres MD CHEMISTRY ORDERABLES [facility] [place] [address] * Magnesium (09/28/2024 11:51 PM EST) [facility] Magnesium 0.72 0.69 - 1.07 mMol/L 09/29/2024 12:27 AM [facility] Blood VENOUS BLOOD SPECIMEN / Unknown Venipuncture / Unknown 09/28/2024 11:51 PM EST 09/28/2024 11:57 PM EST Hayley Torres MD CHEMISTRY ORDERABLES [facility] [place] [address] * (ABNORMAL) Basic Metabolic Panel (09/28/2024 11:51 PM EST) [facility] Glucose 204(H) 65 - 199 mg/dL 09/29/2024 [...] Torres MD CHEMISTRY ORDERABLES [facility] [place] [place] [address] * (ABNORMAL) CBC (with Diff) (09/28/2024 11:51 [...] Neutrophil % 86.7 % 09/29/2024 12:00 AM [facility] Neutrophil Absolute (ANC) - Automated 11.06(H) [...] [facility]/ZIP Co de Phone Number [facility] [place] [address] * (ABNORMAL) POC, GLUCOSE (09/28/2024 11:45 PM EST) Glucometer, POC 238(H) 65 - 199 mg/dL 09/28/2024 11:45 PM EST [facility] Comment:Supplemental ranges: <140 mg/dL before meals <180 mg/dL all other times of the day. Blood CAPILLARY BLOOD / Unknown 09/28/2024 11:45 PM EST 09/28/2024 11:45 PM EST Hayley Torres MD POINT OF CARE TEST O RDERAHERNANDEZ Performing Organization Address [facility] Co de Phone Number [facility] [place] [address] * (ABNORMAL) POC, GLUCOSE (09/28/2024 10:00 PM EST) Glucometer, POC 287(H) 65 - 199 mg/dL 09/28/2024 10:00 PM EST [facility] Comment:Supplemental ranges: <140 mg/dL before meals <180 mg/dL all other times of the day. Blood CAPILLARY BLOOD / Unknown 09/28/2024 10:00 PM EST 09/28/2024 10:00 PM EST Hayley Torres MD POINT OF CARE TEST O GILDA [facility] [place] [place] [address] * (ABNORMAL) POC, GLUCOSE (09/28/2024 7:51 PM EST) Glucometer, POC 243(H) 65 - 199 mg/dL 09/28/2024 7:52 PM EST [facility] Comment:Supplemental ranges: <140 mg/dL before meals <180 mg/dL all other times of the day. Blood CAPILLARY BLOOD / Unknown 09/28/2024 7:51 PM EST 09/28/2024 7:52 PM EST Hayley Torres MD POINT OF CARE TEST O RDTYESHA Performing Organization Address City/[facility]/ZIP Co de Phone Number [facility] [place] [place] [address] * Blood culture (09/28/2024 5:49 PM EST) Blood Culture No growth at 120 hours 10/03/2024 7:01 PM EST [facility] Blood VENOUS BLOOD SPECIMEN / Unknown Venipuncture / Unknown 09/28/2024 5:49 PM EST 09/28/2024 5:53 PM EST Marko Dickson MD MICROBIOLOGY - BLOOD ORDERABLES Performing Organization Address [facility] Co de Phone Number [facility] [place] [address] * (ABNORMAL) POC, GLUCOSE (09/28/2024 4:42 PM EST) Glucometer, POC 203(H) 65 - 199 mg/dL 09/28/2024 4:42 PM EST [facility] Comment:Supplemental ranges: <140 mg/dL before meals <180 mg/dL all other times of the day. Blood CAPILLARY BLOOD / Unknown 09/28/2024 4:42 PM EST 09/28/2024 4:42 PM EST Hayley Torres MD POINT OF CARE TEST O GILDA Performing Organization Address [facility]/ZIP Co de Phone Number [facility] [place] [address] * (ABNORMAL) Blood Gas, Arterial POC (09/28/2024 3:16 PM EST) pH, Arterial 7.42 7.35 - 7.45 09/28/2024 3:17 PM EST [facility] PCO2, Arterial 39 35 - [facility] Glucose, Arterial 163 65 - 199 mg/dL 09/28/2024 3:17 PM [facility] Comment:Glucose Concentratio n >=200 mg/dL plus symptoms is consistent with Diabetes Mellitus. Blood ARTERIAL BLOOD / Unknown 09/28/2024 3:16 PM EST 09/28/2024 3:17 PM EST Hayley Torres MD POINT OF CARE TEST O RDERABLES [facility] [place] [address] * Surgical Pathology (09/28/2024 2:10 PM EST) Case Report Surgical Pathology Report ? Case: [id number] ? Authorizing Provider: ??Hayley Torres MD ? Collected: ? 09/28/2024 1410 ? Ordering Location: ? Main Operating Room [facility] ?? Received: ?09/28/2024 1644 ? [facility] ? Pathologist: ? Aziza Packer [...] 10/02/2024 8:17 AM EST [facility] Packing Machine Operator STRUCTURE OF LEFT LOWER LIMB / Unknown 09/28/2024 2:10 PM EST 09/28/2024 4:44 PM EST Comment:Left femoral proxima l graft Biomedical device (physical object) STRUCTURE OF LEFT LOWER LIMB / Unknown 09/28/2024 2:17 PM EST 09/28/2024 4:44 PM EST Comment:Left distal BK pop g raft Hayley Torres MD PATHOLOGY/CYTOLOGY O RDERABLES [facility] [place] [address] * Potassium (09/28/2024 10:45 AM EST) Potassium 4.6 3.5 - 5.0 mMol/L 09/28/2024 12:26 PM EST [facility] Blood VENOUS BLOOD SPECIMEN / Unknown Venipuncture / Unknown 09/28/2024 10:45 AM EST 09/28/2024 10:53 AM EST Marko Dickson MD CHEMISTRY ORDERABLES Performing Organization Address City/[facility]/ZIP Co de Phone Number [facility] [place] [place] [address] * POC, GLUCOSE (09/28/2024 7:57 AM EST) Glucometer, POC 192 65 - 199 mg/dL 09/28/2024 7:57 AM EST [facility] Comment:Supplemental ranges: <140 mg/dL before meals <180 mg/dL all other times of the day. Blood CAPILLARY BLOOD / Unknown 09/28/2024 7:57 AM EST 09/28/2024 7:57 AM EST Marko Dickson MD POINT OF CARE TEST O RDERABLES [facility] [place] [address] * ELEN, legs, multiple levels (09/28/2024 7:44 AM EST) VB Text Report Department: Vascular Surgery Lab Patient: [id number] (GEOVANNA DIXON) CPT: 41706 Referring Physician: HERMILA SNIDER ?? Phone: Indications: [...] VASCUBASE 09/28/2024 7:44 AM EST Hermila White CLINICAL PROJECT ASSISTANT VASCULAR ORDERABLE S VASCUBASE * ECHO LMTD W/O CONTRAST W LMTD SPEC DOPP COLOR DOPP (09/28/2024 7:35 AM EST) Anatomical Region Laterality Modality Cardiac Other 09/28/2024 6:56 AM EST Narrative 09/28/2024 9:15 AM EST [address] [place] [address] ? Echocardiogram Report Name: GEOVANNA DIXON JR ?Study Date: 09/28/2024 06:56 AMBP: 132/75 mmHg ? Patient Location: ^IC08^A : 1975 ? Height: 179 cm ? Account: [id number] Age: 49 yrs ? Weight: 108 kg Gender: Male ?BSA: 2.3 m2 Ordering Physician: Marko Dickson MD Referring Physician: PATRIC GILES Performed By: Faiza Cole Reason For Study: Vascular graft infection, initial encounter; MRSA bacteremia Interpreting Fellow: Jame Lares. Exam Location: [facility]. Interpretation Summary -Limited study performed [...] 05/29/2024, no significant changes. Procedure Limited - 86853. Doppler - 61449. Color Doppler - 54443. Suboptimal quality. This study is limited because [...] Note David Lomeli MD - 09/28/2024 [address] [place] [address] Echocardiogram Report Name: GEOVANNA DIXON JR Study Date: 406:56 AMBP: 132/75 mmHg Patient Location:[facility]^A : 1975 Height: 179 cm Account: [id number] Age: 49 yrs Weight: 108 kg Gender: Male BSA: 2.3 m2 Ordering Physician: Marko Dickson MD Referring Physician: PATRIC GILES Performed By: Faiza Cole Reason For Study: Vascular graft infection, initial encounter; MRSAbacteremia Interpreting Fellow: Jame Lares. Exam Location: [facility]. Interpretation Summary -Limited study performed [...] 05/29/2024, no significant changes. Procedure Limited - 72302. Doppler - 99950. Color Doppler - 25587. Suboptimalquality. This study is limited because of [...] Dickson MD CHEMISTRY ORDERABLES [facility] [place] [address] * (ABNORMAL) Potassium (09/28/2024 4:55 AM EST) Pathologist [facility] Potassium 2.9(LLL) 3.5 - 5.0 mMol/L 09/28/2024 5:31 AM EST [facility] Blood VENOUS BLOOD SPECIMEN / Unknown Venipuncture / Unknown 09/28/2024 4:55 AM EST 09/28/2024 5:01 AM EST Marko Dickson MD CHEMISTRY ORDERABLES [facility] [place] [address] * (ABNORMAL) POC, GLUCOSE (09/28/2024 3:54 AM EST) [facility] Glucometer, POC 229(H) 65 - 199 mg/dL 09/28/2024 3:54 AM EST [facility] Comment:Supplemental ranges: <140 mg/dL before meals <180 mg/dL all other times of the day. Blood CAPILLARY BLOOD / Unknown 09/28/2024 3:54 AM EST 09/28/2024 3:54 AM EST Marko Dickson MD POINT OF CARE TEST O RDERABLES [facility] [place] [address] * Magnesium (09/27/2024 11:58 PM EST) [facility] Magnesium 0.77 0.69 - 1.07 mMol/L 09/28/2024 12:38 AM EST [facility] Blood VENOUS BLOOD SPECIMEN / Unknown Venipuncture / Unknown 09/27/2024 11:58 PM EST 09/28/2024 12:10 AM EST Hayley Torres MD CHEMISTRY ORDERABLES [facility] [place] [address] * (ABNORMAL) Basic Metabolic Panel (09/27/2024 11:58 [...] Torres MD CHEMISTRY ORDERABLES [facility] [place] [address] * (ABNORMAL) CBC (with Diff) (09/27/2024 11:58 [...] MD HEMATOLOGY ORDERABLE S [facility] [place] [address] * (ABNORMAL) POC, GLUCOSE (09/27/2024 11:46 PM EST) Glucometer, POC 205(H) 65 - 199 mg/dL 09/27/2024 11:46 PM EST [facility] Comment:Supplemental ranges: <140 mg/dL before meals <180 mg/dL all other times of the day. Blood CAPILLARY BLOOD / Unknown 09/27/2024 11:46 PM EST 09/27/2024 11:46 PM EST Marko Dickson MD POINT OF CARE TEST O RDERABLES [facility] [place] [address] * (ABNORMAL) Blood culture (09/27/2024 9:33 PM EST) [facility] Blood Culture Methicillin Resistant Staphylococcus aureus(Critical) 10/02/2024 8:04 AM EST [facility] Comment:Susceptibilities pre viously reported. Gram Stain Aerobic Bottle: Gram positive cocci in clusters(Critical ) 10/02/2024 8:04 AM EST [facility] Blood VENOUS BLOOD SPECIMEN / Unknown Venipuncture / Unknown 09/27/2024 9:33 PM EST 09/27/2024 9:38 PM EST Marko Dickson MD MICROBIOLOGY - BLOOD ORDERABLES [facility] [place] [address] * POC, GLUCOSE (09/27/2024 7:51 PM EST) Glucometer, POC 142 65 - 199 mg/dL 09/27/2024 7:51 PM EST [facility] Comment:Supplemental ranges: <140 mg/dL before meals <180 mg/dL all other times of the day. Blood CAPILLARY BLOOD / Unknown 09/27/2024 7:51 PM EST 09/27/2024 7:51 PM EST Marko Dickson MD POINT OF CARE TEST O RDERABLES [facility] [place] [address] * (ABNORMAL) Hemogram (09/27/2024 5:55 PM EST) [...] - 45.0 fL 09/27/2024 6:16 PM EST [facility] RDW coefficient of variation 13.0 11.4 - 13.8 % 09/27/2024 6:16 PM EST [facility] NRBC% auto 0.0 % 09/27/2024 6:16 PM EST [facility] NRBC Absolute <0.01 <0.01 x10(3)/mc L 09/27/2024 6:16 PM EST [facility] Blood VENOUS BLOOD SPECIMEN / Unknown Venipuncture / Unknown 09/27/2024 5:55 PM EST 09/27/2024 6:05 PM EST Marko Dickson MD HEMATOLOGY ORDERABLE S Performing Organization Address [facility]/ZIP Co de Phone Number [facility] [place] [place] [address] * POC, GLUCOSE (09/27/2024 5:48 PM EST) Glucometer, POC 171 65 - 199 mg/dL 09/27/2024 5:48 PM EST [facility] Comment:Supplemental ranges: <140 mg/dL before meals <180 mg/dL all other times of the day. Blood CAPILLARY BLOOD / Unknown 09/27/2024 5:48 PM EST 09/27/2024 5:48 PM EST Marko Dickson MD POINT OF CARE TEST O RDERABLES [facility] [place] [address] * Anaerobic Culture (09/27/2024 4:54 PM EST) Anaerobic Culture No anaerobic organisms isolated 10/01/2024 3:54 PM EST [facility] Tissue STRUCTURE OF LEFT THIGH / Unknown 09/27/2024 4:54 PM EST Comment:Infected explanted l eft leg bypass graft Hayley Torres MD MICROBIOLOGY - GENER AL ORDERABLES [facility] [place] [address] * (ABNORMAL) Tissue Culture, Aerobic Only (09/27/2024 [...] - GENER AL ORDERABLES [facility] [place] [address] * Fungus culture (09/27/2024 4:54 PM EST) Fungus Culture No fungus isolated 10/31/2024 7:55 AM EST [facility] Tissue STRUCTURE OF LEFT THIGH / Unknown 09/27/2024 4:54 PM EST 09/27/2024 5:23 PM EST Comment:Infected explanted l eft leg bypass graft Hayley Torres MD MICROBIOLOGY - GENER AL ORDERABLES [facility] [place] [address] * POC, GLUCOSE (09/27/2024 3:23 PM EST) [...] [facility]/ZIP Co de Phone Number [facility] [place] [address] * POC, GLUCOSE (09/27/2024 11:29 AM EST) Glucometer, POC 181 65 - 199 mg/dL 09/27/2024 11:29 AM EST [facility] Comment:Supplemental ranges: <140 mg/dL before meals <180 mg/dL all other times of the day. Blood CAPILLARY BLOOD / Unknown 09/27/2024 11:29 AM EST 09/27/2024 11:30 AM EST Marko Dickson MD POINT OF CARE TEST O RDERABLES [facility] [place] [address] * CT Lower Extremity w Contrast Left (09/27/2024 9:16 AM EST) RegisterPatient Signature WORKSTATION ID [id number] [facility] Anatomical Region Laterality Modality Hip, Leg, [...] who have questions please contact the health ostomy care nurse that requested your imaging first. ? Electronically signed by: Ignacia Chi MD, [facility] ([phone]), at 09/27/2024 10:48 AM Narrative 09/27/2024 10:48 [...] patients who have questions please contactthe health ostomy care nurse that requested your imaging first. Rose Wright APRN IMG CT ORDERABL ES * POC, GLUCOSE (09/27/2024 7:51 AM EST) Pathologist [facility] Glucometer, POC 194 65 - 199 mg/dL 09/27/2024 7:51 AM EST [facility] Comment:Supplemental ranges: <140 mg/dL before meals <180 mg/dL all other times of the day. Blood CAPILLARY BLOOD / Unknown 09/27/2024 7:51 AM EST 09/27/2024 7:51 AM EST Marko Dickson MD POINT OF CARE TEST O RDERABLES [facility] [place] [address] * (ABNORMAL) MRSA PCR Screen (09/27/2024 7:51 AM EST) Pathologist [facility] MRSA PCR Detected(A ) 09/27/2024 11:56 AM [...] test kit and is run on the [employer] GeneXpert Dx System. This test is cleared by the U.S. Food and Drug Administration for clinical use and its performance characteristics have been verified by the [facility] at [facility]. Marko Dickson MD MOLECULAR ORDERABLES [facility] [place] [address] * Potassium (09/27/2024 7:51 AM EST) Potassium 3.5 3.5 - 5.0 mMol/L 09/27/2024 9:09 AM EST [facility] Blood VENOUS BLOOD SPECIMEN / Unknown Venipuncture / Unknown 09/27/2024 7:51 AM EST 09/27/2024 8:05 AM EST Marko Dickson MD CHEMISTRY ORDERABLES Performing Organization Address [facility]/ZIP Co de Phone Number [facility] [place] [address] * (ABNORMAL) Potassium (09/27/2024 5:05 AM EST) [facility] Signature Potassium 3.4(L) 3.5 - 5.0 mMol/L 09/27/2024 5:32 AM EST [facility] Blood VENOUS BLOOD SPECIMEN / Unknown Venipuncture / Unknown 09/27/2024 5:05 AM EST 09/27/2024 5:09 AM EST Marko Dickson MD CHEMISTRY ORDERABLES Performing Organization Address City/[facility]/ZIP Co de Phone Number [facility] [place] [place] [address] * POC, GLUCOSE (09/27/2024 3:52 AM EST) [...] [facility]/ZIP Co de Phone Number [facility] [place] [address] * (ABNORMAL) POC, GLUCOSE (09/27/2024 1:59 AM EST) Glucometer, POC 219(H) 65 - 199 mg/dL 09/27/2024 2:00 AM EST [facility] Comment:Supplemental ranges: <140 mg/dL before meals <180 mg/dL all other times of the day. Blood CAPILLARY BLOOD / Unknown 09/27/2024 1:59 AM EST 09/27/2024 2:00 AM EST Marko Dickson MD POINT OF CARE TEST O GILDA Performing Organization Address [facility]/ZIP Co de Phone Number [facility] [place] [address] * (ABNORMAL) Magnesium (09/27/2024 12:01 AM EST) Magnesium 0.68(L) 0.69 - 1.07 mMol/L 09/27/2024 12:35 AM EST [facility] Blood VENOUS BLOOD SPECIMEN / Unknown Venipuncture / Unknown 09/27/2024 12:01 AM EST 09/27/2024 12:05 AM EST Hayley Torres MD CHEMISTRY ORDERABLES Performing Organization Address City/[facility]/ZIP Co de Phone Number [facility] [place] [place] [address] * (ABNORMAL) Basic Metabolic Panel (09/27/2024 12:01 [...] Torres MD CHEMISTRY ORDERABLES [facility] [place] [address] * (ABNORMAL) CBC (with Diff) (09/27/2024 12:01 [...] MD HEMATOLOGY ORDERABLE S [facility] [place] [address] * (ABNORMAL) POC, GLUCOSE (09/26/2024 11:59 PM EST) Glucometer, POC 251(H) 65 - 199 mg/dL 09/26/2024 11:59 PM EST [facility] Comment:Supplemental ranges: <140 mg/dL before meals <180 mg/dL all other times of the day. Blood CAPILLARY BLOOD / Unknown 09/26/2024 11:59 PM EST 09/26/2024 11:59 PM EST Marko Dickson MD POINT OF CARE TEST O GILDA [facility] [place] [address] * (ABNORMAL) POC, GLUCOSE (09/26/2024 7:34 PM EST) Glucometer, POC 204(H) 65 - 199 mg/dL 09/26/2024 7:34 PM EST [facility] Comment:Supplemental ranges: <140 mg/dL before meals <180 mg/dL all other times of the day. Blood CAPILLARY BLOOD / Unknown 09/26/2024 7:34 PM EST 09/26/2024 7:35 PM EST Marko Dickson MD POINT OF CARE TEST Stephanie VO [facility] [place] [address] * (ABNORMAL) Blood culture (09/26/2024 6:45 PM [...] MICROBIOLOGY - BLOOD ORDERABLES Performing Organization Address [facility]/ZIP Co de Phone Number [facility] [place] [address] * (ABNORMAL) Sonicated Tissue/Implant Culture (09/26/2024 5:16 [...] - GENER AL ORDERABLES Performing Organization Address City/[facility]/ZIP Co de Phone Number [facility] [place] [address] * Anaerobic Culture (09/26/2024 5:02 PM EST) Anaerobic Culture No anaerobic organisms isolated 09/30/2024 3:51 PM EST [facility] Abscess STRUCTURE OF LEFT KNEE REGION / Unknown Non Blood Collection / Unknown 09/26/2024 5:02 PM EST Comment:Left Below Knee popl iteal fluid Please perform Gram stain if not included in order Hayley Torres MD MICROBIOLOGY - GENER AL ORDERABLES Performing Organization Address City/[facility]/ZIP Co de Phone Number [facility] [place] [address] * (ABNORMAL) Abscess/Wound Aspirate Culture, Aerobic Only [...] - GENER AL ORDERABLES Performing Organization Address City/[facility] Co de Phone Number [facility] [place] [address] * Fungus culture (09/26/2024 5:02 PM EST) Fungus Culture No fungus isolated 10/24/2024 7:54 AM EST [facility] Abscess STRUCTURE OF LEFT KNEE REGION / Unknown Non Blood Collection / Unknown 09/26/2024 5:02 PM EST 09/26/2024 5:08 PM EST Comment:Left Below Knee popl iteal fluid Please perform Gram stain if not included in order Hayley Torres MD MICROBIOLOGY - GENER AL ORDERABLES [facility] [place] [address] * Anaerobic Culture (09/26/2024 4:50 PM EST) Anaerobic Culture No anaerobic organisms isolated 09/30/2024 3:51 PM EST [facility] Abscess LEFT INGUINAL REGION STRUCTURE / Unknown Non Blood Collection / Unknown 09/26/2024 4:50 PM EST Comment:Left Groin Fluid Hayley Torres MD MICROBIOLOGY - GENER AL ORDERABLES [facility] [place] [address] * (ABNORMAL) Abscess/Wound Aspirate Culture, Aerobic Only (09/26/2024 4:50 PM EST) Abscess/Wound Aspirate Culture Many Methicillin Resistant Staphylococcus aureus(A) VITEK 2 METHOD 09/30/2024 1:36 PM EST [facility] Gram Stain Many neutrophils(A) 09/30/2024 1:36 PM EST [facility] Gram Stain Many Gram positive cocci(A) 09/30/2024 1:36 PM EST [facility] Abscess LEFT [...] - GENER AL ORDERABLES Performing Organization Address [facility] Co de Phone Number [facility] [place] [address] * Fungus culture (09/26/2024 4:50 PM EST) Pathologist [facility] Fungus Culture No fungus isolated 10/24/2024 7:54 AM [facility] Abscess LEFT INGUINAL REGION STRUCTURE / Unknown Non Blood Collection / Unknown 09/26/2024 4:50 PM EST 09/26/2024 4:56 PM EST Comment:Left Groin Fluid Hayley Torres MD MICROBIOLOGY - GENER AL ORDERABLES Performing Organization Address [facility] Co de Phone Number [facility] [place] [address] * (ABNORMAL) Blood Gas, Arterial POC (09/26/2024 4:43 PM EST) Pathologist [facility] pH, Arterial 7.38 7.35 - 7.45 09/27/2024 [...] CARE TEST O RDERABLES [facility] [place] [address] * (ABNORMAL) POC, GLUCOSE (09/26/2024 4:29 PM EST) Glucometer, POC 213(H) 65 - 199 mg/dL 09/26/2024 4:30 PM [facility] Comment:Supplemental ranges: <140 mg/dL before meals <180 mg/dL all other times of the day. Blood CAPILLARY BLOOD / Unknown 09/26/2024 4:29 PM EST 09/26/2024 4:30 PM EST Marko Dickson MD POINT OF CARE TEST O RDERABLES [facility] [place] [address] * (ABNORMAL) Blood Gas, Venous POC (09/26/2024 [...] [facility] Ionized Calcium, Venous 1.09(L) 1.15 - 1.33 mmol/L 09/26/2024 3:30 PM [facility] Blood VENOUS BLOOD SPECIMEN / Unknown 09/26/2024 3:28 PM EST 09/26/2024 3:30 PM EST Marko Dickson MD POINT OF CARE TEST O RDERABLES Performing Organization Address City/State/[facility] Co de Phone Number [facility] [place] [address] * (ABNORMAL) Scan, Peripheral Blood (09/26/2024 2:39 PM EST) RBC Morphology Abnormal 09/26/2024 3:21 PM [facility] Platelet Estimate Normal Normal 09/26/2024 3:21 PM [facility] Microcyte 1-5 /HPF 09/26/2024 3:21 PM [facility] Platelet Clumps Present(A) (none) 3:21 PM [facility] WBC MORPHOLOGY See Comment(A) (none) 09/26/2024 3:21 PM EST [facility] Comment:Dohle BodiesToxic Gr anulation Blood VENOUS BLOOD SPECIMEN / Unknown Venipuncture / Unknown 09/26/2024 2:39 PM EST 09/26/2024 2:50 PM EST Marko Dickson MD HEMATOLOGY ORDERABLE S [facility] [place] [address] * ABORH RECHECK (PATIENT HISTORY FOUND) (09/26/2024 2:39 PM EST) [facility] ABORH Recheck Progress Complete 09/26/2024 5:01 PM EST [facility] Blood VENOUS BLOOD SPECIMEN / Unknown Venipuncture / Unknown 09/26/2024 2:39 PM EST 09/26/2024 2:56 PM EST aMrko Dickson MD BLOOD BANK LAB ORDER RANDELL [facility] [place]OD [place] [address] * (ABNORMAL) Hepatic Function Panel (09/26/2024 2:39 PM EST) [facility] Albumin 3.1(L) 3.2 - 5.2 g/dL 09/26/2024 [...] - 0.3 mg/dL 09/26/2024 4:23 PM EST [facility] Protein, Total 7.0 6.1 - 8.0 g/dL 09/26/2024 4:23 PM EST [facility] Blood VENOUS BLOOD SPECIMEN / Unknown Venipuncture / Unknown 09/26/2024 2:39 PM EST 09/26/2024 2:50 PM EST Marko Dickson MD CHEMISTRY ORDERABLES [facility] [place] [place] [address] * (ABNORMAL) Basic Metabolic Panel (09/26/2024 2:39 PM EST) Glucose 254(H) 65 - 199 mg/dL 09/26/2024 4:32 PM EST [facility] Comment:Glucose Concentratio n >=200 mg/dL plus symptoms is consistent with Diabetes Mellitus. Blood Urea Nitrogen 9(L) 10 - 20 mg/dL 09/26/2024 4:32 PM EST [facility] Creatinine 0.55(L) 0.80 - 1.50 mg/dL 09/26/2024 4:32 PM EST [facility] Sodium 127(L) 135 - 145 mMol/L 09/26/2024 4:32 PM EST [facility] Potassium 3.4(L) 3.5 - 5.0 mMol/L 09/26/2024 4:32 PM EST [facility] Chloride 89(L) 98 - 107 mMol/L 09/26/2024 4:32 PM EST [facility] Carbon Dioxide 25 22 - 31 mMol/L 09/26/2024 4:32 PM EST [facility] Anion Gap 13 5 - 15 mMol/L 09/26/2024 4:32 PM EST [facility] Calcium 8.9 8.5 - 10.5 [...] Torres MD CHEMISTRY ORDERABLES [facility] [place] [place] [address] * (ABNORMAL) CBC (with Diff) (09/26/2024 2:39 [...] % 0.0 % 09/26/2024 3:21 PM EST [facility] Comment:This is an appended report. These results have been appended to a previously preliminary verified report. Eos Absolute <0.04 0.00 - 0.40 x10(3)/mc L 09/26/2024 3:21 PM EST [facility] Comment:This is an appended report. These results have been appended to a previously preliminary verified report. Basophil % 0.5 % 09/26/2024 3:21 PM EST [facility] Comment:This is an appended report. These results have been appended to a previously preliminary verified report. Baso Absolute 0.11(H) 0.00 - 0.10 x10(3)/mc L 09/26/2024 3:21 PM EST [facility] Comment:This is an appended report. These results have been appended to a previously preliminary verified report. Immature Gran % 1.2 % 3:21 PM EST [facility] Comment:This is an [...] MD HEMATOLOGY ORDERABLE S [facility] [place] [address] * Phosphorus (09/26/2024 2:39 PM EST) Phosphorus 3.2 2.5 - 4.5 mg/dL 09/26/2024 4:05 PM [facility]ATORY Blood VENOUS BLOOD SPECIMEN / Unknown Venipuncture / Unknown 09/26/2024 2:39 PM EST 09/26/2024 2:50 PM EST Marko Dickson MD CHEMISTRY ORDERABLES Performing Organization Address City/[facility]/ZIP Co de Phone Number [facility] [place] [address] * (ABNORMAL) Magnesium (09/26/2024 2:39 PM EST) Magnesium 0.65(L) 0.69 - 1.07 mMol/L 09/26/2024 4:05 PM EST [facility] Blood VENOUS BLOOD SPECIMEN / Unknown Venipuncture / Unknown 09/26/2024 2:39 PM EST 09/26/2024 2:50 PM EST Marko Dickson MD CHEMISTRY ORDERABLES Performing Organization Address City/[facility]/ZIP Co de Phone Number [facility] [place] [address] * Type and screen ([facility]/CGP/BABITA) (09/26/2024 2:39 PM EST) Pathologist [facility] [...] BLOOD BANK LABORATORY T&S only valid at [facility] LAB 09/26/2024 3:45 PM EST [facility] BLOOD BANK LABORATORY Blood VENOUS BLOOD SPECIMEN / Unknown Venipuncture / Unknown 09/26/2024 2:39 PM EST 09/26/2024 2:56 PM EST Narrative [facility] BLOOD BANK LABORATORY - 09/26/2024 3:45 PM EST This Type and Screen result is only valid at the [facility] Hospital Marko Dickson MD BLOOD BANK LAB ORDER RANDELL Performing Organization Address City/[facility]/ZIP Co de Phone Number [facility] [place] [address] * (ABNORMAL) Fibrinogen (09/26/2024 2:39 PM EST) [...] HEMATOLOGY ORDERABLE S Performing Organization Address [facility] Co de Phone Number [facility] [place] [address] * APTT (09/26/2024 2:39 PM EST) Partial [...] Organization Address City/[facility] Co de Phone Number [facility] [place] [address] * (ABNORMAL) Prothrombin Time (09/26/2024 2:39 PM [...] HEMATOLOGY ORDERABLE S Performing Organization Address [facility] Co de Phone Number [facility] [place] [address] * (ABNORMAL) POC, GLUCOSE (09/26/2024 2:36 PM [...] [facility]/ZIP Co de Phone Number [facility] [place] [address] * (ABNORMAL) Blood culture (09/26/2024 2:22 PM EST) Blood Culture Methicillin Resistant Staphylococcus aureus(Critical) VITEK 2 METHOD 10/07/2024 7:40 AM EST [facility] Comment: detected by PCR Isolate saved. If future testing is required, contact the Microbiology Quality Control. Gram Stain Aerobic Bottle: Gram positive cocci [...] MICROBIOLOGY - BLOOD ORDERABLES Performing Organization Address City/State/[facility] Co de Phone Number [facility] [place] [place] [address] * Request For 2nd Read CT Lower Extremity (09/26/2024 1:50 PM EST) [employer] WORKSTATION ID [id number] RAD Anatomical Region Laterality Modality Hip, Leg, [...] who have questions please contact the health ostomy care nurse that requested your imaging first. ? Electronically signed by: Lisette Bruno MD, [facility] ([phone]), at 09/26/2024 3:01 PM Narrative 09/26/2024 3:01 PM EST EXAMINATION: REQUEST FOR 2ND READ CT LOWER EXTREMITY CLINICAL HISTORY: Pt s/p LLE femoral-below knee popliteal bypass with PTFE graft, c/f infection surrounding graft, en route to [facility] for possible vascular surgery intervention; Sending Institution [facility]; Date of exam [id number]; I believe a [...] on series 3, image 8 and 641, 472, 390, 482. No other rim-enhancing fluid collection is seen. [...] c/f infection surrounding graft, en route to [facility] for possiblevascular surgery intervention; Sending Institution [facility]; Date of exam [id number]; Ibelieve a reinterpretation [...] on series 3, image 8 and 641, 802,513, 052. No other rim-enhancing fluid collection is [...] patients who have questions please contactthe health ostomy care nurse that requested your imaging first. Electronically signed by: Lisette Bruno MD, [facility]([phone]), at 09/26/2024 3:01 PM Marko Dickson MD [...] Misael Bo RN)1254 (Given - Provider: Indira Traecy RN)1746 (Given - Provider: Indira Tracey RN) [...] Lauren Zavala RN)1446 (Given - Provider: Terell Ariaza RN) insulin glargine-ygfn (Semglee) (100 unit/mL) subcutaneous [...] Tracey RN)2030 (Given - Provider: Jordyn Navas, ADVID) 0035 (Given - Provider: Jordyn Navas, DAVID)0400 [...] Diallo RN) 0831 (Given - Provider: Terell Araiaz RN) pantoprazole EC (Protonix) tablet 40 mg [...] Routine documented in this encounter Care Teams Electrostatic Painter Relationship Specialty Start Date End Date Charles Romero [place] [address] PCP - General Internal Medicine 09/18/24 documented as of this encounter
--- OUTSIDE RECORDS SUMMARY | 2024-10-31 16:59 | XMS_ITS | Encounter Summary ---
Author Organization [facility] Address [facility] [place] [address] Care Team Providers Care Liquid Loader Name Role Phone Charles Romero Primary Care Provider + Encounter Details Date Type Department Care Team (Late st Contact Info) Description 09/29/2024 11:59 PM EST Anesthesia Event [place] [address] Penny Mtahias MD [facility] [place] [address] Anesthesia Record Procedure Summary Procedure Name Responsible [...] calf incision 10/04/24 1557 by Linda Pollock, survey director 10/06/24; 0900; Left , anterior, distal; thigh; [...] the past 12 months has th e [employer], gas, oil, or water [employer] threatened to shut off services in your [...] any time in the past 12 m [facility], were you homeless or [...] EST Office Visit [place] [address] Isabela Hayward, FORESTRY SCIENTIST [facility] [place] [address] 11/10/2024 10:00 AM EST Office Visit Vascular Surgery at [place] [phone] Dai Whitman APRN 11/21/2024 2:15 PM EST Office [place] [address] Dayanara Grover MD [facility] [place] [address] documented as of this encounter Visit Diagnoses Not on filedocumented in this encounter Care Teams Liquid Loader Relationship Specialty Start Date End Date Charles Rom[place] [address] PCP - General Internal Medicine 11/11/24 documented as of this encounter
--- OUTSIDE RECORDS SUMMARY | 2024-10-31 16:59 | XMS_ITS | Encounter Summary ---
Author Organization [facility] [place] [address] Care Team Providers Care Low Pressure Firer Name Role Phone Charles Romero Primary Care Provider + Reason for Visit * Auth/Cert (Routine) Specialty Diagnoses / Procedures Referred By William t Referred To Contact Diagnoses Vascular graft infection, initial encounter Sepsis [A41.9] T82.7XXA Procedures EMERGENCY IPI Angel Gonsalez MD [facility] [place] [address] [facility] Referral ID Status Reason Start Date Expiration Date Visits Re quested Visits Authorized [id number] 1 1 Encounter Details Date Type Department Care Team (Late st Contact Info) Description 09/29/2024 2:07 PM EST Anesthesia Event [place] [address] Penny Mathias MD [facility] DR [place] [address] Marko Mckeon CRNA [facility] [place] [address] Anesthesia Record Procedure Summary Procedure Name Responsible Anesthesiologist Anesthesia Start Time Anesthesia Stop Time @EXPLORATION W\O SURGICAL REPAIR, FEMORAL ARTERY - JENNFIER (WRVU 7.5) (Left: Leg) Penny Mathias MD [...] by Liana Mccormack RN PIV 09/26/24; 1200; evha-dlp-fhbwuu catheter system; 18 gauge; median cubital vein (antecubital fossa), left; [facility]; site symptomatic; 10/04/24; 1100 09/26/24 1200 by Pamela Eli RN 10/04/24 1100 by Liana Mccormack RN PIV 09/26/24; 1534; 20 gauge; basilic vein (medial side of arm), right; site symptomatic; 10/04/24; 1100 09/26/24 1534 by Pamela Eli RN 10/04/24 1100 by Liana Mccormack RN PIV 09/26/24; 1620; dnwp-fmg-lmbjkx catheter system; 14 gauge; median cubital vein (antecubital fossa), right; Ultrasound Guidance; Pat Esther; 10/02/24; 1000 09/26/24 1620 by Jules Christopher CRNA 10/02/24 1000 by Cyndi Castro RN Urethral Catheter 09/26/24; 1620; Surg wei longer than 2 hours, Physician order, Need for intraoperative urine output monitoring; Immobility without alternative; indwelling double lumen catheter; hydrophilic coated, latex; 14; inserted at [facility]; 1; 5; 10; none; drainage bag; [...] Removal Time: 15109/29/24 1424 by Marko Mckeon, STAFF INTERPRETER 09/29/24 1515 by Marko Mckeon CRNA Intentionally [...] drink = 0.6 oz pur e alcohol) [facility] Utilities Answer Date Recorded In the past [...] Procedure Summary Date: 09/29/24 Room / Location: [facility] OR [facility] MAIN OR Anesthesia Start: 1407 Anesthesia Stop: 1516 Procedures: @EXPLORATION W\O SURGICAL REPAIR, FEMORAL ARTERY - JENNIFER (WRVU 7.5) (Left: Leg) DEBRIDEMENT SKIN, SUBCU, MUSCLE, LOWER EXTREMITY (WRVU 2.7) (Left) Diagnosis: (explanted LLE infected graft) Surgeons: Taylor Ruiz MD Responsible Provider: Penny Mathias MD Anesthesia Type: general ASA Status: 4 All Anesthesia Providers: Anesthesiologist: Penny Mathias MD STAFF INTERPRETER: Marko Mckeon CRNA Vitals Value Taken Time [...] 3.51) performed by Thony Garcia MD at [facility] OR ??? PRO BYPASS GRAFT OTHR, FEM-TIBIAL Left 08/01/2024 @BYPASS GRAFT, FEM-ANT TIBIAL, -POST TIBIAL, -PERONEAL, -DP W\ SYNTHETIC CONDUIT (WRVU 23.66) performed by Lisette Maldonado MD at [facility] OR ??? PRO CABG, ARTERY-VEIN, SINGLE 01/04/2012 @CABG, VENOUS & ARTERIAL GRAFT;SINGLE VEIN GRAFT performed by INNA TOVAR at [facility] OR ? ? PRO DEBRIDEMENT SUBCUTANEOUS TISSUE 20 SQCM/< Left 09/27/2024 DEBRIDEMENT SKIN AND SUBCU, LOWER EXTREMITY (WRVU 1.01) performed by Hayley Torres MD at [facility] OR ??? PRO DRAIN LOWER LEG DEEP ABSC/HEMATOMA Left 09/26/2024 INCISION & DRAINAGE, LEG OR ANKLE, DEEP ABSCESS OR HEMATOMA (WRVU 5.23) performed by Hayley Torres MD at [facility] OR ??? PRO ENDOSCOPY W/VIDEO-ASST VEIN HARVEST, CABG 01/04/2012 ENDOSCOPIC HARVEST VEIN(S) FOR CABG performed by INNA TOVAR at [facility] OR ??? PRO EXCISION, INFEC GRAFT, EXTREMITY Left 09/26/2024 EXCISION OF INFECTED GRAFT FROM LOWER EXTREMITY (WRVU 9.53) performed by Hayley Torres MD at [facility] MAIN OR ? ? PRO I&D DEEP ABSCESS BURSA/HEMATOMA THIGH/KNEE REGION Left 09/26/2024 INCISION & DRAINAGE ABSCESS OR HEMATOMA, THIGH, KNEE SUPERFICIAL (WRVU 6.78) performed by Hayley Torres MD at [facility] MAIN OR ??? VS ARTERIOGRAM LOWER EXTREMITY VASCULAR SURGERY 07/20/2024 VS Arteriogram Lower Extremity Vascular Surgery 07/20/2024 Taylor Ruiz MD [facility] INTERVENTIONL RAD Social History Tobacco Use [...] with patient. Plan discussed with attending and STAFF INTERPRETER. Anesthesia Screening documented in this encounter Plan of Treatment Upcoming Encounters Date Type Department Care Team (Late st Contact Info) Description 11/09/2024 1:30 PM EST Office [place] [address] Isabela Hayward APRN [facility] [place] [address] 11/10/2024 10:00 AM EST Office [place] [address] Dai Whitman, RESHMA 11/21/2024 2:15 PM EST Office [place] [phone] Dayanara Grover MD [facility] [place] [address] documented as of this encounter Visit Diagnoses [...] mg documented in this encounter Care Teams Low Pressure Firer Relationship Specialty Start Date End Date Charles Romero PA [facility] [place] [address] PCP - General Internal Medicine 09/18/24 documented as of this encounter
--- OUTSIDE RECORDS SUMMARY | 2024-10-31 17:00 | XMS_ITS | Encounter Summary ---
Author Organization [facility] Jean Marie britton [address] Care Team Providers Care Rate Clerk Passenger Name Role Phone Charles Romero Primary Care Provider + Reason for Visit * Auth/Cert (Routine) Specialty Diagnoses / Procedures Referred By William moses Referred To Contact Diagnoses Vascular graft infection, initial encounter Sepsis [A41.9] T82.7XXA Procedures EMERGENCY IPI Angel Gonsalez MD [facility] [place] [address] [facility] Referral ID Status Reason Start Date Expiration Date Visits Re quested Visits Authorized [id number] 1 1 Encounter Details Date Type Department Care Team (Late st Contact Info) Description 09/29/2024 2:11 PM EST - 09/29/2024 3:47 PM EST Surgery [place] [address] Anabel Finney MD [facility] [place] [address] @EXPLORATION W\O SURGICAL REPAIR, FEMORAL ARTERY - [...] any time in the past 12 m [facility], were you homeless or living in [...] Procedures: 09/26/24: Explant of infected LEFT HOSPITAL HOUSEKEEPER to below-knee popliteal artery PTFE bypass graft [...] patch and PTFE willard over the HOSPITAL HOUSEKEEPER was unincorporated. - Resection of prior femoral [...] 2 tablespoons of dried fruit. Milk and di-vdjev-ppmeb yogurt have 15 grams of carbs in a serving. A serving is 1 cup of milk or 3/4 cup (6 oz) of bs-mchjv-qpyzu yogurt. Starchy vegetables have 15 grams of carbs in a serving. A serving is ?? cup of mashed potatoes or sweet potato; 1 cup winter squash; ?? of a small baked potato; ?? cup of cooked beans; or ?? cup cooked corn or green peas. Learn how much carbs to eat each day and at each meal. A dietitian or certified hand therapist can teach you how to keep [...] was scheduled for a f/u nutrition evaluation. Title Inspector met pt at bedside. Pt sharedthat his [...] Based on current findings- home (sister & sevbeba-vs-koa's home) Consult Recommendations: No other consults recommended [...] Loss: None Karolyn Hudson MD Vascular Surgery, 4341 10/09/24 Important Studies and Lab Data: Labs: [...] 05/29/2024, no significant changes. Procedure Limited - 09588. Doppler - 81961. Color Doppler - 02867. Suboptimal quality. This study is limited because [...] on series 3, image 8 and 641, 932, 336, 302. No other rim-enhancing fluid collection is seen. [...] wedged between the vastus medialis and adductor [place] muscle. This tracks into the popliteal fossa [...] PM Isabela [place] APRN Infectious Disease at [facility] Arrive at: Home [phone] To view instructions for your video visit, click here, or visit this website: [email or web address] If you have not previously downloaded the [facility] patient portal software, Geosho, please do so by clicking one of the links below or searching in your device's lobito store. MoneyMan devices 11/09/2024 1:30 PM Isabela [place] APRN Infectious Disease at [facility] Arrive at: [place] [phone] 11/21/2024 2:15 Dayanara Nascimento MD Endocrinology at [facility] Arrive at: [place] 3A [phone] Future Orders Complete By Expires CBC (with Diff) [AVO059 Custom] 10/17/2024 12/11/2024 Process Instructions: INCLUDES: WBC, RBC, Hgb, Hct, Platelets, RBC Indices and Differential Scheduling Instructions: Comments: Questions: OPAT: Order / Recommendation for Post Discharge IV Antibiotic Management [PUY033 CPT(R)] As directed Process Instructions: If no progress note charted, please enter Clinical details in comments. Scheduling Instructions: Comments: - If this order was signed greater than 72 hours prior to [facility] discharge, please call to confirm the accuracy of this order. Please Fax all results to: OPAT Program Infectious Disease Section [facility], [place] [address] FAX: - After hours, please contact the Infectious Disease Physician midwife practitioner at . - Line care instructions - see flush/heparin orders. Facilities may follow organizational policies/practices regarding heparin. - alf for medication administration/market superintendent and catheter care/maintenance authorized. - CVC/PICC Dressing Change weekly and PRN Please use CHG or Bio Patch RN: Please care for PICC line including dressing changes weekly and prn. Please draw labs every Wednesday and PRN and [facility] at [phone]. Please draw labs off PICC line. [facility]. Please RN visit for IV ABX teaching and ongoing assessment. Nursing Home for Medication Administration/Hookup and catheter care/maintenance: - Teach Patient/Caregiver goals/self-monitoring/therapy administration to independence per the Nursing Care Plan. - alf visit frequency; initial, weekly and 2 PRN [...] Amaya Hernandez MD Referral for Outpatient Antibiotics [TXT8128 CPT(R)] As directed Process Instructions: Scheduling Instructions: [...] Jr. for admission to Home Health. [address] [facility] [address] Phone Number: [phone] (home) Date of : 1975 Inpatient DOCUMENTATION FOR VNA SERVICES (INCLUDING THOSE PATIENTS WITH MEDICARE COVERAGE REQUIRING HOME VNA SERVICES AND/OR HOSPICE SERVICES) PATIENT'S LOCATION: Geovanna Dixon Jr. [address] [facility] [address] [phone] (home) Cell: Telephone Information: Healthcare Manager's Name: Geovanna In discussion with the attending physician, it is certified that this patient is under their care and that they, or a Nurse Practitioner, Clinical Nurse specialist or Physician Binitrotoluene Operator who is working directly with them, [...] managing ADLs. HOME HEALTH CARE AGENCY: [facility] [address] [place] [address] START OF CARE: within 24-48 hours of discharge Patient has Medicare Please note that any additional orders needs or changes will need to be obtained from this patient's PCP: JUSTIN Roberson [address] [facility] [address] . All VNA agencies which cover the area of patient's residence have been reviewed, either verbally or in writing, andpatient/family have chosen the home health care agency noted. Questions: Disciplines Requested: Nursing Physical Therapy Occupational Therapy Recurring Lab Work Interval Expires CBC (with Diff) [VOF226 Custom] Once a week until 12/10/2024 12/10/2024 [...] For any problems or questions please call [phone] For issues on weeknights after 5pm and weekends please call [phone] and ask for the Vascular Fellow midwife practitioner. Discharge Medications: Your Medications New Medications Dose [...] - See Instructions). FLUSH PROTOCOL WITH MEDICATIONS ([facility]): Before med infusion: flush with [...] can get this completed at 3L at [facility] prior to your scheduled appointment. Stop atorvastatin [...] For any problems or questions please call [phone] For issues on weeknights after 5pm and weekends please call [phone] and ask for the Vascular Fellow midwife practitioner. documented in this encounter Discharge Instructions * [...] 2 tablespoons of dried fruit. Milk and mj-isolg-dqffh yogurt have 15 grams of carbs in a serving. A serving is 1 cup of milk or 3/4 cup (6 oz) of qg-hxybj-tuaoz yogurt. Starchy vegetables have 15 grams of carbs in a serving. A serving is ?? cup of mashed potatoes or sweet potato; 1 cup winter squash; ?? of a small baked potato; ?? cup of cooked beans; or ?? cup cooked corn or green peas. Learn how much carbs to eat each day and at each meal. A dietitian or certified hand therapist can teach you how to keep [...] can get this completed at 3L at [facility] prior to your scheduled appointment. Stop atorvastatin [...] For any problems or questions please call [phone] For issues on weeknights after 5pm and weekends please call [phone] and ask for the Vascular Fellow midwife practitioner. documented in this encounter Medications at Time [...] - See Instructions). FLUSH PROTOCOL WITH MEDICATIONS ([facility]): Before med infusion: flush with [...] - See Instructions). FLUSH PROTOCOL WITH MEDICATIONS ([facility]): Before med infusion: flush with [...] to contact. Reviewed roles and responsibilities of BIOFUELS TECHNOLOGY DEVELOPMENT MANAGER and infusion vendor. Contact information for ID and Vascular team/clinic, BIOFUELS TECHNOLOGY DEVELOPMENT MANAGER and infusion vendor given to pt. Discussed f/u appointments in ID 5C clinic, telephone and tele health. Pt verbalized understanding. All questions answered. IV & PO ABX Medications: Daptomycin 700mg IV daily Start/anticipated end date: 10/10/24-11/10/24 BIOFUELS TECHNOLOGY DEVELOPMENT MANAGER: [place] Infusion vendor: [id number] IV Access: 4 Fr. single lumen [...] 2 tablespoons of dried fruit. Milk and jv-rjeqf-befpz yogurt have 15 grams of carbs in a serving. A serving is 1 cup of milk or 3/4 cup (6 oz) of zz-xduxo-ggfsk yogurt. Starchy vegetables have 15 grams of carbs in a serving. A serving is ?? cup of mashed potatoes or sweet potato; 1 cup winter squash; ?? of a small baked potato; ?? cup of cooked beans; or ?? cup cooked corn or green peas. Learn how much carbs to eat each day and at each meal. A dietitian or certified hand therapist can teach you how to keep [...] this time. OT to complete orders. Pager: [phone] Fabián Burrows OT 10/09/2024 Occupational Therapy Rehabilitation [...] GSV harvest, vein patch angioplasty, L HOSPITAL HOUSEKEEPER and BK pop w/ sartorius flap L fem, I/D, 09/29 L sartorius flap revision, vac change. 10/03/24 NPO at [facility] for OR wound exploration. [...] He mentions he'll stay with sister and lnymcpc-lm-hqy upon DC. Pt resting in bed upon [...] up with R and down with L, [id number]-zgpr. Balance: Sitting: NORMAL- EOB unsupported good postural [...] Based on current findings- home (sister & gbwvuim-ey-awj's home) Consult Recommendations: No other consults recommended [...] 15 (TE-F) minutes TERRY JIMENEZ PT Pager: [phone] Physical Therapy Inpatient Rehabilitation Department * María [...] smoking 1 week ago. He presented to [facility] on 09/26 and went to the OR [...] Procedure Component Value - Date/Time Blood culture [[id number]] (Abnormal) (Susceptibility) Collected: 09/26/24 1422 Lab Status: Edited Result - FINAL Specimen: Blood, Venous Updated: 10/07/24 0740 Blood Culture Methicillin Resistant Staphylococcus aureus Comment: detected by PCR Isolate saved. If future testing is required, contact the Microbiology Fitter And Turner. Gram Stain Aerobic Bottle: Gram positive cocci in clusters Susceptibility Methicillin Resistant Staphylococcus aureus MINIMUM INHIBITORY CONCENTRATION VITEK 2 METHOD Clindamycin Resistant Daptomycin Susceptible Gentamicin Susceptible [1] Linezolid Susceptible Oxacillin Resistant Trimethoprim/Sulfa Susceptible Vancomycin Susceptible [1] Gentamicin is not appropriate for monotherapy for gram-positive infections. AFB culture [[id number]] Collected: 09/27/24 1654 Lab Status: Preliminary result Specimen: Tissue from Thigh, Left Updated: 10/05/24 1201 Acid Fast Bacilli Culture No acid fast bacilli isolated at 1 week. Acid Fast Stain No acid fast bacilli seen Blood culture [[id number]] Collected: 09/29/242123 Lab Status: Final result Specimen: Blood, Venous Updated: 10/04/24 2301 Blood Culture No growth at 120 hours Blood culture [[id number]] Collected: 09/29/242123 Lab Status: Final result Specimen: Blood, Venous Updated: 10/04/24 2301 Blood Culture No growth at 120 hours AFB culture [[id number]] Collected: 09/26/24 1702 Lab Status: Preliminary result Specimen: Abscess from Knee, Left Updated: 10/04/24 1201 Acid Fast Bacilli Culture No acid fast bacilli isolated at 1 week. Acid Fast Stain No acid fast bacilli seen Blood culture [[id number]] Collected: 09/28/24 1749 Lab Status: Final result [...] GSV harvest, vein patch angioplasty, L HOSPITAL HOUSEKEEPER and BK pop w/ sartorius flap L fem, I/D, 09/29 L sartorius flap revision, vac change. 10/09/24: Progressing well post surgically. Will pull medial thigh drain today, retain sartorius flap drain along with wound vac x 3 sponges ([facility] has approved for home vac) and WTD [...] PRN PICC dressing change completed as per [facility] protocol. Positive pressure displacement connector (Max Plus) [...] smoking 1 week ago. He presented to [facility] on 09/26 and went to the OR [...] Procedure Component Value - Date/Time Blood culture [[id number]] (Abnormal) (Susceptibility) Collected: 09/26/24 1422 Lab Status: Edited Result - FINAL Specimen: Blood, Venous Updated: 10/07/24 0740 Blood Culture Methicillin Resistant Staphylococcus aureus Comment: detected by PCR Isolate saved. If future testing is required, contact the Microbiology Fitter And Turner. Gram Stain Aerobic Bottle: Gram positive cocci in clusters Susceptibility Methicillin Resistant Staphylococcus aureus MINIMUM INHIBITORY CONCENTRATION VITEK 2 METHOD Clindamycin Resistant Daptomycin Susceptible Gentamicin Susceptible [1] Linezolid Susceptible Oxacillin Resistant Trimethoprim/Sulfa Susceptible Vancomycin Susceptible [1] Gentamicin is not appropriate for monotherapy for gram-positive infections. AFB culture [[id number]] Collected: 09/27/241653 Lab Status: Preliminary result Specimen: Tissue from Thigh, Left Updated: 10/05/24 1201 Acid Fast Bacilli Culture No acid fast bacilli isolated at 1 week. Acid Fast Stain No acid fast bacilli seen Blood culture [[id number]] Collected: 09/29/242123 Lab Status: Final result Specimen: Blood, Venous Updated: 10/04/24 2301 Blood Culture No growth at 120 hours Blood culture [[id number]] Collected: 09/29/242123 Lab Status: Final result Specimen: Blood, Venous Updated: 10/04/24 2301 Blood Culture No growth at 120 hours AFB culture [[id number]] Collected: 09/26/24 1702 Lab Status: Preliminary result Specimen: Abscess from Knee, Left Updated: 10/04/24 1201 Acid Fast Bacilli Culture No acid fast bacilli isolated at 1 week. Acid Fast Stain No acid fast bacilli seen Blood culture [[id number]] Collected: 09/28/24 1749 Lab Status: Final result Specimen: Blood, Venous Updated: 10/03/24 1901 Blood Culture No growth at 120 hours Blood culture [[id number]] (Abnormal) Collected: 09/27/24 2133 Lab Status: Final result Specimen: Blood, Venous Updated: 10/02/24 0804 Blood Culture Methicillin Resistant Staphylococcus aureus Comment: Susceptibilities previously reported. Gram Stain Aerobic Bottle: Gram positive cocci in clusters Tissue Culture, Aerobic & Anaerobic [[id number]] Collected: 09/27/241653 Lab Status: Final result Specimen: Tissue from Thigh, Left Updated: 10/01/24 1554 Narrative: The following orders were created for panel order Tissue Culture, Aerobic & Anaerobic. Procedure Abnormality Status --------- ------ Tissue Culture, Aerobic ...[[id number]] Anaerobic Culture[[id number]] Final result Please view results for these tests on the individual orders. Anaerobic Culture [[id number]] Collected: 09/27/241653 Lab Status: Final result Specimen: Tissue from Thigh, Left Updated: 10/01/24 1554 Anaerobic Culture No anaerobic organisms isolated Tissue Culture, Aerobic Only [[id number]] (Abnormal) (Susceptibility) Collected: 09/27/241653 Lab Status: Final [...] GSV harvest, vein patch angioplasty, L HOSPITAL HOUSEKEEPER and BK pop w/ sartorius flap L [...] 81mg daily Vibha Benson APRN 10/08/2024 Pager: [phone] * Vibha Benson APRN - 10/07/2024 8:52 [...] smoking 1 week ago. He presented to [facility] on 09/26 and went to the OR [...] Procedure Component Value - Date/Time Blood culture [[id number]] (Abnormal) (Susceptibility) Collected: 09/26/24 1422 Lab Status: Edited Result - FINAL Specimen: Blood, Venous Updated: 10/07/24 0740 Blood Culture Methicillin Resistant Staphylococcus aureus Comment: detected by PCR Isolate saved. If future testing is required, contact the Microbiology Fitter And Turner. Gram Stain Aerobic Bottle: Gram positive cocci in clusters Susceptibility Methicillin Resistant Staphylococcus aureus MINIMUM INHIBITORY CONCENTRATION VITEK 2 METHOD Clindamycin Resistant Daptomycin Susceptible Gentamicin Susceptible [1] Linezolid Susceptible Oxacillin Resistant Trimethoprim/Sulfa Susceptible Vancomycin Susceptible [1] Gentamicin is not appropriate for monotherapy for gram-positive infections. AFB culture [[id number]] Collected: 09/27/24 165 Lab Status: Preliminary result Specimen: Tissue from Thigh, Left Updated: 10/05/24 1201 Acid Fast Bacilli Culture No acid fast bacilli isolated at 1 week. Acid Fast Stain No acid fast bacilli seen Blood culture [[id number]] Collected: 09/29/242123 Lab Status: Final result Specimen: Blood, Venous Updated: 10/04/24 2301 Blood Culture No growth at 120 hours Blood culture [[id number]] Collected: 09/29/242123 Lab Status: Final result Specimen: Blood, Venous Updated: 10/04/24 2301 Blood Culture No growth at 120 hours AFB culture [[id number]] Collected: 09/26/24 1702 Lab Status: Preliminary result Specimen: Abscess from Knee, Left Updated: 10/04/24 1201 Acid Fast Bacilli Culture No acid fast bacilli isolated at 1 week. Acid Fast Stain No acid fast bacilli seen Blood culture [[id number]] Collected: 09/28/24 1749 Lab Status: Final result Specimen: Blood, Venous Updated: 10/03/24 1901 Blood Culture No growth at 120 hours Blood culture [[id number]] (Abnormal) Collected: 09/27/24 2133 Lab Status: Final result Specimen: Blood, Venous Updated: 10/02/24 0804 Blood Culture Methicillin Resistant Staphylococcus aureus Comment: Susceptibilities previously reported. Gram Stain Aerobic Bottle: Gram positive cocci in clusters Tissue Culture, Aerobic & Anaerobic [[id number]] Collected: 09/27/24 165 Lab Status: Final result Specimen: Tissue from Thigh, Left Updated: 10/01/24 1554 Narrative: The following orders were created for panel order Tissue Culture, Aerobic & Anaerobic. Procedure Abnormality Status --------- ------ Tissue Culture, Aerobic ...[[id number]] Anaerobic Culture[[id number]] Final result Please view results for these tests on the individual orders. Anaerobic Culture [[id number]] Collected: 09/27/24 165 Lab Status: Final result Specimen: Tissue from Thigh, Left Updated: 10/01/24 1554 Anaerobic Culture No anaerobic organisms isolated Tissue Culture, Aerobic Only [[id number]] (Abnormal) (Susceptibility) Collected: 09/27/24 165 Lab Status: [...] is considered susceptible to doxycycline. Blood culture [[id number]] (Abnormal) Collected: 09/26/24 1845 Lab Status: Final result Specimen: Blood, Venous Updated: 10/01/24 0658 Blood Culture Methicillin Resistant Staphylococcus aureus Comment: isolated. Susceptibilities previously reported. Gram Stain Aerobic Bottle: Gram positive cocci in clusters Abscess/Wound Aspirate Culture, Aerobic & Anaerobic [[id number]] (Abnormal) Collected: 09/26/241649 Lab Status: Final result Specimen: Abscess from Groin, Left Updated: 09/30/24 1551 Narrative: The following orders were created for panel order Abscess/Wound Aspirate Culture, Aerobic & Anaerobic. Procedure Abnormality Status --------- ------ Abscess/Wound Aspirate C...[[id number]] Abnormal Final result Anaerobic Culture[[id number]] Final result Please view results for these tests on the individual orders. Anaerobic Culture [[id number]] Collected: 09/26/24 165 Lab Status: Final result Specimen: Abscess from Groin, Left Updated: 09/30/24 1551 Anaerobic Culture No anaerobic organisms isolated Abscess/Wound Aspirate Culture, Aerobic & Anaerobic [[id number]] (Abnormal) Collected: 09/26/24 1702 Lab Status: Final result Specimen: Abscess from Knee, Left Updated: 09/30/24 1551 Narrative: The following orders were created for panel order Abscess/Wound Aspirate Culture, Aerobic & Anaerobic. Procedure Abnormality Status --------- ------ Abscess/Wound Aspirate C...[[id number]] Abnormal Final result Anaerobic Culture[[id number]] Final result Please view results for these tests on the individual orders. Anaerobic Culture [[id number]] Collected: 09/26/24 1702 Lab Status: Final result Specimen: Abscess from Knee, Left Updated: 09/30/24 1551 Anaerobic Culture No anaerobic organisms isolated Sonicated Tissue/Implant Culture [[id number]] (Abnormal) Collected: 09/26/24 1716 Lab Status: Final result Specimen: Vascular Graft from Leg, Left Updated: 09/30/24 1349 Sonicated Tissue/Implant Culture Methicillin Resistant Staphylococcus aureus Comment: isolated from broth culture. Susceptibilities previously reported. Abscess/Wound Aspirate Culture, Aerobic Only [[id number]] (Abnormal) (Susceptibility) Collected: 09/26/24 170 Lab Status: [...] to doxycycline. Abscess/Wound Aspirate Culture, Aerobic Only [[id number]] (Abnormal) (Susceptibility) Collected: 09/26/24 1650 Lab Status: [...] GSV harvest, vein patch angioplasty, L HOSPITAL HOUSEKEEPER and BK pop w/ sartorius flap L [...] 81mg daily Vibha Benson APRN 10/07/2024 Pager: [phone] * Karina-Jessica Mcrae, PT - 10/06/2024 3:21 PM EST 10/06/24 7106 Evaluation & Treatment Document Type contact Comment, [...] smoking 1 week ago. He presented to [facility] on 09/26 and went to the OR [...] Procedure Component Value - Date/Time AFB culture [[id number]] Collected: 09/27/241653 Lab Status: Preliminary result Specimen: Tissue from Thigh, Left Updated: 10/05/24 1201 Acid Fast Bacilli Culture No acid fast bacilli isolated at 1 week. Acid Fast Stain No acid fast bacilli seen Blood culture [[id number]] Collected: 09/29/242123 Lab Status: Final result Specimen: Blood, Venous Updated: 10/04/24 2301 Blood Culture No growth at 120 hours Blood culture [[id number]] Collected: 09/29/242123 Lab Status: Final result Specimen: Blood, Venous Updated: 10/04/24 2301 Blood Culture No growth at 120 hours AFB culture [[id number]] Collected: 09/26/24 170 Lab Status: Preliminary result Specimen: Abscess from Knee, Left Updated: 10/04/24 1201 Acid Fast Bacilli Culture No acid fast bacilli isolated at 1 week. Acid Fast Stain No acid fast bacilli seen Blood culture [[id number]] Collected: 09/28/24 1749 Lab Status: Final result Specimen: Blood, Venous Updated: 10/03/24 1901 Blood Culture No growth at 120 hours Blood culture [[id number]] (Abnormal) Collected: 09/27/242132 Lab Status: Final result Specimen: Blood, Venous Updated: 10/02/24 0804 Blood Culture Methicillin Resistant Staphylococcus aureus Comment: Susceptibilities previously reported. Gram Stain Aerobic Bottle: Gram positive cocci in clusters Tissue Culture, Aerobic & Anaerobic [[id number]] Collected: 09/27/241653 Lab Status: Final result Specimen: Tissue from Thigh, Left Updated: 10/01/24 1554 Narrative: The following orders were created for panel order Tissue Culture, Aerobic & Anaerobic. Procedure Abnormality Status --------- ------ Tissue Culture, Aerobic ...[[id number]] Anaerobic Culture[[id number]] Final result Please view results for these tests on the individual orders. Anaerobic Culture [[id number]] Collected: 09/27/241653 Lab Status: Final result Specimen: Tissue from Thigh, Left Updated: 10/01/24 1554 Anaerobic Culture No anaerobic organisms isolated Tissue Culture, Aerobic Only [[id number]] (Abnormal) (Susceptibility) Collected: 09/27/24 1654 Lab Status: [...] is considered susceptible to doxycycline. Blood culture [[id number]] (Abnormal) (Susceptibility) Collected: 09/26/24 1422 Lab Status: Edited Specimen: Blood, Venous Updated: 10/01/24 0658 Blood Culture Methicillin Resistant Staphylococcus aureus Comment: detected by PCR Isolate saved. If future testing is required, contact the Microbiology Fitter And Turner. Gram Stain Aerobic Bottle: Gram positive cocci in clusters Susceptibility Methicillin Resistant Staphylococcus aureus VITEK 2 METHOD Clindamycin Resistant Gentamicin Susceptible [1] Linezolid Susceptible Oxacillin Resistant Trimethoprim/Sulfa Susceptible Vancomycin Susceptible [1] Gentamicin is not appropriate for monotherapy for gram-positive infections. Blood culture [[id number]] (Abnormal) Collected: 09/26/24 1845 Lab Status: Final result Specimen: Blood, Venous Updated: 10/01/24 0658 Blood Culture Methicillin Resistant Staphylococcus aureus Comment: isolated. Susceptibilities previously reported. Gram Stain Aerobic Bottle: Gram positive cocci in clusters Abscess/Wound Aspirate Culture, Aerobic & Anaerobic [[id number]] (Abnormal) Collected: 09/26/24 165 Lab Status: Final result Specimen: Abscess from Groin, Left Updated: 09/30/24 1551 Narrative: The following orders were created for panel order Abscess/Wound Aspirate Culture, Aerobic & Anaerobic. Procedure Abnormality Status --------- ------ Abscess/Wound Aspirate C...[[id number]] Abnormal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 clusters Tissue Culture, Aerobic & Anaerobic [[id number]] Collected: 09/27/241653 Lab Status: Final result Specimen: Tissue from Thigh, Left Updated: 10/01/24 155 Narrative: The following orders were created for panel order Tissue Culture, Aerobic & Anaerobic. Procedure Abnormality Status --------- ------ Tissue Culture, Aerobic ...[[id number]] Anaerobic Culture[[id number]] Final result Please view results for these tests on the individual orders. Anaerobic Culture [[id number]] Collected: 09/27/241653 Lab Status: Final result Specimen: Tissue from Thigh, Left Updated: 10/01/24 1554 Anaerobic Culture No anaerobic organisms isolated Tissue Culture, Aerobic Only [[id number]] (Abnormal) (Susceptibility) Collected: 09/27/241653 Lab Status: Final [...] is considered susceptible to doxycycline. Blood culture [[id number]] (Abnormal) (Susceptibility) Collected: 09/26/24 1422 Lab Status: Final result Specimen: Blood, Venous Updated: 10/01/24 0658 Blood Culture Methicillin Resistant Staphylococcus aureus Comment: detected by PCR Isolate saved. If future testing is required, contact the [facility]. Gram Stain Aerobic Bottle: Gram positive cocci in clusters Susceptibility Methicillin Resistant Staphylococcus aureus VITEK 2 METHOD Clindamycin Resistant Gentamicin Susceptible [1] Linezolid Susceptible Oxacillin Resistant Trimethoprim/Sulfa Susceptible Vancomycin Susceptible [1] Gentamicin is not appropriate for monotherapy for gram-positive infections. Blood culture [[id number]] (Abnormal) Collected: 09/26/24 1845 Lab Status: Final result Specimen: Blood, Venous Updated: 10/01/24 0658 Blood Culture Methicillin Resistant Staphylococcus aureus Comment: isolated. Susceptibilities previously reported. Gram Stain Aerobic Bottle: Gram positive cocci in clusters Abscess/Wound Aspirate Culture, Aerobic & Anaerobic [[id number]] (Abnormal) Collected: 09/26/24 1650 Lab Status: Final result Specimen: Abscess from Groin, Left Updated: 09/30/24 1551 Narrative: The following orders were created for panel order Abscess/Wound Aspirate Culture, Aerobic & Anaerobic. Procedure Abnormality Status --------- ------ Abscess/Wound Aspirate C...[[id number]] Abnormal Final result Anaerobic Culture[[id number]] Final result Please view results for these tests on the individual orders. Anaerobic Culture [[id number]] Collected: 09/26/24 1650 Lab Status: Final result Specimen: Abscess from Groin, Left Updated: 09/30/24 1551 Anaerobic Culture No anaerobic organisms isolated Abscess/Wound Aspirate Culture, Aerobic & Anaerobic [[id number]] (Abnormal) Collected: 09/26/24 1702 Lab Status: Final result Specimen: Abscess from Knee, Left Updated: 09/30/24 1551 Narrative: The following orders were created for panel order Abscess/Wound Aspirate Culture, Aerobic & Anaerobic. Procedure Abnormality Status --------- ------ Abscess/Wound Aspirate C...[[id number]] Abnormal Final result Anaerobic Culture[[id number]] Final result Please view results for these tests on the individual orders. Anaerobic Culture [[id number]] Collected: 09/26/24 1702 Lab Status: Final result Specimen: Abscess from Knee, Left Updated: 09/30/24 1551 Anaerobic Culture No anaerobic organisms isolated Sonicated Tissue/Implant Culture [[id number]] (Abnormal) Collected: 09/26/24 1716 Lab Status: Final result Specimen: Vascular Graft from Leg, Left Updated: 09/30/24 1349 Sonicated Tissue/Implant Culture Methicillin Resistant Staphylococcus aureus Comment: isolated from broth culture. Susceptibilities previously reported. Abscess/Wound Aspirate Culture, Aerobic Only [[id number]] (Abnormal) (Susceptibility) Collected: 09/26/24 1702 Lab Status: [...] to doxycycline. Abscess/Wound Aspirate Culture, Aerobic Only [[id number]] (Abnormal) (Susceptibility) Collected: 09/26/24 1650 Lab Status: [...] is considered susceptible to doxycycline. AFB culture [[id number]] Collected: 09/27/241653 Lab Status: Preliminary result Specimen: Tissue from Thigh, Left Updated: 09/29/24 1201 Acid Fast Bacilli Culture No acid fast bacilli isolated to date. Acid Fast Stain No acid fast bacilli seen AFB culture [[id number]] Collected: 09/26/241701 Lab Status: Preliminary result Specimen: Abscess from Knee, Left Updated: 09/29/24 1201 Acid Fast Bacilli Culture No acid fast bacilli isolated to date. Acid Fast Stain No acid fast bacilli seen Fungus culture [[id number]] Collected: 09/27/241653 Lab Status: Preliminary result Specimen: Tissue from Thigh, Left Updated: 09/28/24 0748 Fungus Culture No fungus isolated to date MRSA PCR Screen [[id number]] (Abnormal) Collected: 09/27/24 0751 Lab Status: Final result Specimen: Swab from Nares Updated: 09/27/24 1156 MRSA PCR Detected Narrative: This test was performed using the Xpert MRSA NxG test kit and is run on the [employer] Dx System. This test is cleared by the U.S. Food and Drug Administration for clinical use and its performance characteristics have been verified by the [facility] at [facility]. 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 10/03/24 NPO at [facility] for OR wound exploration. [...] 81mg daily Rose Wright APRN 10/03/2024 Pager: [phone] * Padma Ramirez MD - 10/02/2024 7:42 [...] concerns. Joanie Silverio PT, DPT, GCS Pager: [phone] 10/02/24 Inpatient Rehabilitation Department * Hermila White [...] smoking 1 week ago. He presented to [facility] on 09[place]26 and went to the OR [...] WC acetaminophen 975 mg Oral Q6H [facility] atorvastatin 80 mg Oral QPM aspirin EC 81 mg Oral Daily methylphenidate 20 mg Oral TID pantoprazole EC 40 mg Oral Daily senna-docusate 2 tablet Oral BID venlafaxine XR 225 mg Oral Daily heparin (porcine) 5,000 Units Subcutaneous Q8H [facility] lidocaine 1 patch Transdermal Q24H Operations [...] 9.6 from 9.1 - Last Bowel Movement: (INTERNATIONAL GUEST COORDINATOR) Objective: Temp: [36.2 ??C (97.1 ??F)-36.9 ??C [...] Procedure Component Value - Date/Time Blood culture [[id number]] (Abnormal) Collected: 09/27/242132 Lab Status: Final result Specimen: Blood, Venous Updated: 10/02/24 0804 Blood Culture Methicillin Resistant Staphylococcus aureus Comment: Susceptibilities previously reported. Gram Stain Aerobic Bottle: Gram positive cocci in clusters Blood culture [[id number]] Collected: 09/29/242123 Lab Status: Preliminary result Specimen: Blood, Venous Updated: 10/01/24 2301 Blood Culture No growth at 48 hours Blood culture [[id number]] Collected: 09/29/242123 Lab Status: Preliminary result Specimen: Blood, Venous Updated: 10/01/24 2301 Blood Culture No growth at 48 hours Blood culture [[id number]] Collected: 09/28/24 1749 Lab Status: Preliminary result Specimen: Blood, Venous Updated: 10/01/24 1901 Blood Culture No growth at 72 hours Tissue Culture, Aerobic & Anaerobic [[id number]] Collected: 09/27/241653 Lab Status: Final result Specimen: Tissue from Thigh, Left Updated: 10/01/24 1554 Narrative: The following orders were created for panel order Tissue Culture, Aerobic & Anaerobic. Procedure Abnormality Status --------- ------ Tissue Culture, Aerobic ...[[id number]] Anaerobic Culture[[id number]] Final result Please view results for these tests on the individual orders. Anaerobic Culture [[id number]] Collected: 11/20/24 1654 Lab Status: Final result Specimen: Tissue from Thigh, Left Updated: 10/01/24 1554 Anaerobic Culture No anaerobic organisms isolated Tissue Culture, Aerobic Only [[id number]] (Abnormal) (Susceptibility) Collected: 09/27/24 1654 Lab Status: [...] is considered susceptible to doxycycline. Blood culture [[id number]] (Abnormal) (Susceptibility) Collected: 09/26/24 1422 Lab Status: Final result Specimen: Blood, Venous Updated: 10/01/24 0658 Blood Culture Methicillin Resistant Staphylococcus aureus Comment: detected by PCR Isolate saved. If future testing is required, contact the [facility]. Gram Stain Aerobic Bottle: Gram positive cocci in clusters Susceptibility Methicillin Resistant Staphylococcus aureus VITEK 2 METHOD Clindamycin Resistant Gentamicin Susceptible [1] Linezolid Susceptible Oxacillin Resistant Trimethoprim/Sulfa Susceptible Vancomycin Susceptible [1] Gentamicin is not appropriate for monotherapy for gram-positive infections. Blood culture [[id number]] (Abnormal) Collected: 09/26/24 1845 Lab Status: Final result Specimen: Blood, Venous Updated: 10/01/24 0658 Blood Culture Methicillin Resistant Staphylococcus aureus Comment: isolated. Susceptibilities previously reported. Gram Stain Aerobic Bottle: Gram positive cocci in clusters Abscess/Wound Aspirate Culture, Aerobic & Anaerobic [[id number]] (Abnormal) Collected: 09/26/24 1650 Lab Status: Final result Specimen: Abscess from Groin, Left Updated: 09/30/24 1551 Narrative: The following orders were created for panel order Abscess/Wound Aspirate Culture, Aerobic & Anaerobic. Procedure Abnormality Status --------- ------ Abscess/Wound Aspirate C...[[id number]] Abnormal Final result Anaerobic Culture[[id number]] Final result Please view results for these tests on the individual orders. Anaerobic Culture [[id number]] Collected: 09/26/24 1650 Lab Status: Final result Specimen: Abscess from Groin, Left Updated: 09/30/24 1551 Anaerobic Culture No anaerobic organisms isolated Abscess/Wound Aspirate Culture, Aerobic & Anaerobic [[id number]] (Abnormal) Collected: 09/26/24 1702 Lab Status: Final result Specimen: Abscess from Knee, Left Updated: 09/30/24 1551 Narrative: The following orders were created for panel order Abscess/Wound Aspirate Culture, Aerobic & Anaerobic. Procedure Abnormality Status --------- ------ Abscess/Wound Aspirate C...[[id number]] Abnormal Final result Anaerobic Culture[[id number]] Final result Please view results for these tests on the individual orders. Anaerobic Culture [[id number]] Collected: 09/26/24 1702 Lab Status: Final result Specimen: Abscess from Knee, Left Updated: 09/30/24 1551 Anaerobic Culture No anaerobic organisms isolated Sonicated Tissue/Implant Culture [[id number]] (Abnormal) Collected: 09/26/24 1716 Lab Status: Final result Specimen: Vascular Graft from Leg, Left Updated: 09/30/24 1349 Sonicated Tissue/Implant Culture Methicillin Resistant Staphylococcus aureus Comment: isolated from broth culture. Susceptibilities previously reported. Abscess/Wound Aspirate Culture, Aerobic Only [[id number]] (Abnormal) (Susceptibility) Collected: 09/26/24 1702 Lab Status: [...] to doxycycline. Abscess/Wound Aspirate Culture, Aerobic Only [[id number]] (Abnormal) (Susceptibility) Collected: 09/26/24 1650 Lab Status: [...] is considered susceptible to doxycycline. AFB culture [[id number]] Collected: 09/27/241653 Lab Status: Preliminary result Specimen: Tissue from Thigh, Left Updated: 09/29/24 1201 Acid Fast Bacilli Culture No acid fast bacilli isolated to date. Acid Fast Stain No acid fast bacilli seen AFB culture [[id number]] Collected: 09/26/241701 Lab Status: Preliminary result Specimen: Abscess from Knee, Left Updated: 09/29/24 1201 Acid Fast Bacilli Culture No acid fast bacilli isolated to date. Acid Fast Stain No acid fast bacilli seen Fungus culture [[id number]] Collected: 09/27/241653 Lab Status: Preliminary result Specimen: Tissue from Thigh, Left Updated: 09/28/24 0748 Fungus Culture No fungus isolated to date MRSA PCR Screen [[id number]] (Abnormal) Collected: 09/27/24 0751 Lab Status: Final result Specimen: Swab from Nares Updated: 09/27/24 1156 MRSA PCR Detected Narrative: This test was performed using the Xpert MRSA NxG test kit and is run on the [employer] GeneXpert Dx System. This test is cleared by the U.S. Food and Drug Administration for clinical use and its performance characteristics have been verified by the [facility] at [facility]. 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 He presented to [facility] on 09[place]26 and went to the OR [...] WBC 10.1(9.5) - lytes WNL - BM INTERNATIONAL GUEST COORDINATOR (09/26) - BC NGTD Objective: Temp: [36.6 [...] Procedure Component Value - Date/Time Blood culture [[id number]] (Abnormal) (Susceptibility) Collected: 09/26/24 1422 Lab Status: Final result Specimen: Blood, Venous Updated: 10/01/24 0658 Blood Culture Methicillin Resistant Staphylococcus aureus Comment: detected by PCR Isolate saved. If future testing is required, contact the [facility]. Gram Stain Aerobic Bottle: Gram positive cocci in clusters Susceptibility Methicillin Resistant Staphylococcus aureus VITEK 2 METHOD Clindamycin Resistant Gentamicin Susceptible [1] Linezolid Susceptible Oxacillin Resistant Trimethoprim/Sulfa Susceptible Vancomycin Susceptible [1] Gentamicin is not appropriate for monotherapy for gram-positive infections. Blood culture [[id number]] (Abnormal) Collected: 09/26/24 1845 Lab Status: Final result Specimen: Blood, Venous Updated: 10/01/24 0658 Blood Culture Methicillin Resistant Staphylococcus aureus Comment: isolated. Susceptibilities previously reported. Gram Stain Aerobic Bottle: Gram positive cocci in clusters Blood culture [[id number]] Collected: 09/29/24 2124 Lab Status: Preliminary result Specimen: Blood, Venous Updated: 09/30/24 2301 Blood Culture No Growth at 18-24 hrs. Blood culture [[id number]] Collected: 09/29/24 2124 Lab Status: Preliminary result Specimen: Blood, Venous Updated: 09/30/24 2301 Blood Culture No Growth at 18-24 hrs. Blood culture [[id number]] Collected: 09/28/24 1749 Lab Status: Preliminary result Specimen: Blood, Venous Updated: 09/30/24 1901 Blood Culture No growth at 48 hours Abscess/Wound Aspirate Culture, Aerobic & Anaerobic [[id number]] (Abnormal) Collected: 09/26/24 165 Lab Status: Final result Specimen: Abscess from Groin, Left Updated: 09/30/24 1551 Narrative: The following orders were created for panel order Abscess/Wound Aspirate Culture, Aerobic & Anaerobic. Procedure Abnormality Status --------- ------ Abscess/Wound Aspirate C...[[id number]] Abnormal Final result Anaerobic Culture[[id number]] Final result Please view results for these tests on the individual orders. Anaerobic Culture [[id number]] Collected: 09/26/241649 Lab Status: Final result Specimen: Abscess from Groin, Left Updated: 09/30/24 1551 Anaerobic Culture No anaerobic organisms isolated Abscess/Wound Aspirate Culture, Aerobic & Anaerobic [[id number]] (Abnormal) Collected: 09/26/24 170 Lab Status: Final result Specimen: Abscess from Knee, Left Updated: 09/30/24 1551 Narrative: The following orders were created for panel order Abscess/Wound Aspirate Culture, Aerobic & Anaerobic. Procedure Abnormality Status --------- ------ Abscess/Wound Aspirate C...[[id number]] Abnormal Final result Anaerobic Culture[[id number]] Final result Please view results for these tests on the individual orders. Anaerobic Culture [[id number]] Collected: 09/26/24 170 Lab Status: Final result Specimen: Abscess from Knee, Left Updated: 09/30/24 1551 Anaerobic Culture No anaerobic organisms isolated Sonicated Tissue/Implant Culture [[id number]] (Abnormal) Collected: 09/26/24 1716 Lab Status: Final result Specimen: Vascular Graft from Leg, Left Updated: 09/30/24 1349 Sonicated Tissue/Implant Culture Methicillin Resistant Staphylococcus aureus Comment: isolated from broth culture. Susceptibilities previously reported. Abscess/Wound Aspirate Culture, Aerobic Only [[id number]] (Abnormal) (Susceptibility) Collected: 09/26/24 1702 Lab Status: [...] to doxycycline. Abscess/Wound Aspirate Culture, Aerobic Only [[id number]] (Abnormal) (Susceptibility) Collected: 09/26/24 1650 Lab Status: [...] is considered susceptible to doxycycline. Blood culture [[id number]] (Abnormal) Collected: 09/27/24 2133 Lab Status: Preliminary result Specimen: Blood, Venous Updated: 09/30/24 0718 Blood Culture Methicillin Resistant Staphylococcus aureus Comment: Susceptibilities previously reported. Gram Stain Aerobic Bottle: Gram positive cocci in clusters AFB culture [[id number]] Collected: 09/27/24 1654 Lab Status: Preliminary result Specimen: Tissue from Thigh, Left Updated: 09/29/24 1201 Acid Fast Bacilli Culture No acid fast bacilli isolated to date. Acid Fast Stain No acid fast bacilli seen AFB culture [[id number]] Collected: 09/26/24 1702 Lab Status: Preliminary result Specimen: Abscess from Knee, Left Updated: 09/29/24 1201 Acid Fast Bacilli Culture No acid fast bacilli isolated to date. Acid Fast Stain No acid fast bacilli seen Tissue Culture, Aerobic Only [[id number]] (Abnormal) (Susceptibility) Collected: 09/27/241653 Lab Status: Preliminary [...] is considered susceptible to doxycycline. Anaerobic Culture [[id number]] Collected: 09/27/241653 Lab Status: Preliminary result Specimen: Tissue from Thigh, Left Updated: 09/28/24 1355 Anaerobic Culture No anaerobic organisms isolated to date Fungus culture [[id number]] Collected: 09/27/241653 Lab Status: Preliminary result Specimen: Tissue from Thigh, Left Updated: 09/28/24 0748 Fungus Culture No fungus isolated to date MRSA PCR Screen [[id number]] (Abnormal) Collected: 09/27/24 0751 Lab Status: Final result Specimen: Swab from Nares Updated: 09/27/24 1156 MRSA PCR Detected Narrative: This test was performed using the Xpert MRSA NxG test kit and is run on the [employer] Dx System. This test is cleared by the U.S. Food and Drug Administration for clinical use and its performance characteristics have been verified by the Clinical [facility] and [facility] at [facility]. 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 10/01/24: Tolerated gentle irrigation with saline at BSD today with clear to mildly serosang drainage - no purulence or malodor noted and patient tolerated well. Will plan for NPO at [facility] for return [place] tomorrow. Hypertensive overnight, home [...] - ISS - diet today; NPO at [facility] for OR Tuesday 10/02 Anticoagulation: SQH TID Antiplatelet: ASA 81 María Carranza, COMPLAINT INVESTIGATIONS OFFICER 10/01/2024 Pager: [phone] * Karolyn Hudson MD - 09/30/2024 11:21 [...] smoking 1 week ago. He presented to [facility] on 09/26 and went to the OR [...] Procedure Component Value - Date/Time Blood culture [[id number]] (Abnormal) Collected: 09/27/24 2133 Lab Status: Preliminary result Specimen: Blood, Venous Updated: 09/30/24 0718 Blood Culture Methicillin Resistant Staphylococcus aureus Comment: Susceptibilities previously reported. Gram Stain Aerobic Bottle: Gram positive cocci in clusters Blood culture [[id number]] Collected: 09/28/24 1749 Lab Status: Preliminary result Specimen: Blood, Venous Updated: 09/29/24 1901 Blood Culture No Growth at 18-24 hrs. AFB culture [[id number]] Collected: 09/27/24 1654 Lab Status: Preliminary result Specimen: Tissue from Thigh, Left Updated: 09/29/24 1201 Acid Fast Bacilli Culture No acid fast bacilli isolated to date. Acid Fast Stain No acid fast bacilli seen AFB culture [[id number]] Collected: 09/26/24 1702 Lab Status: Preliminary result Specimen: Abscess from Knee, Left Updated: 09/29/24 1201 Acid Fast Bacilli Culture No acid fast bacilli isolated to date. Acid Fast Stain No acid fast bacilli seen Sonicated Tissue/Implant Culture [[id number]] (Abnormal) Collected: 09/26/24 1716 Lab Status: Preliminary result Specimen: Vascular Graft from Leg, Left Updated: 09/29/24 1132 Sonicated Tissue/Implant Culture Methicillin Resistant Staphylococcus aureus Comment: isolated from broth culture. Susceptibilities previously reported. Tissue Culture, Aerobic Only [[id number]] (Abnormal) (Susceptibility) Collected: 09/27/24 1654 Lab Status: [...] is considered susceptible to doxycycline. Blood culture [[id number]] (Abnormal) Collected: 09/26/24 1845 Lab Status: Preliminary result Specimen: Blood, Venous Updated: 09/29/24 0719 Blood Culture Methicillin Resistant Staphylococcus aureus Comment: isolated. Susceptibilities previously reported. Gram Stain Aerobic Bottle: Gram positive cocci in clusters Blood culture [[id number]] (Abnormal) (Susceptibility) Collected: 09/26/24 1422 Lab Status: Preliminary result Specimen: Blood, Venous Updated: 09/29/24 0717 Blood Culture Methicillin Resistant Staphylococcus aureus Comment: detected by PCR Isolate saved. If future testing is required, contact the [facility]. Gram Stain Aerobic Bottle: Gram positive cocci in clusters Susceptibility Methicillin Resistant Staphylococcus aureus VITEK 2 METHOD Clindamycin Resistant Gentamicin Susceptible [1] Linezolid Susceptible Oxacillin Resistant Trimethoprim/Sulfa Susceptible Vancomycin Susceptible [1] Gentamicin is not appropriate for monotherapy for gram-positive infections. Anaerobic Culture [[id number]] Collected: 09/27/24 1654 Lab Status: Preliminary result Specimen: Tissue from Thigh, Left Updated: 09/28/24 1355 Anaerobic Culture No anaerobic organisms isolated to date Abscess/Wound Aspirate Culture, Aerobic Only [[id number]] (Abnormal) (Susceptibility) Collected: 09/26/24 1702 Lab Status: [...] to doxycycline. Abscess/Wound Aspirate Culture, Aerobic Only [[id number]] (Abnormal) (Susceptibility) Collected: 09/26/241649 Lab Status: Preliminary [...] is considered susceptible to doxycycline. Fungus culture [[id number]] Collected: 09/27/241653 Lab Status: Preliminary result Specimen: Tissue from Thigh, Left Updated: 09/28/24 0748 Fungus Culture No fungus isolated to date MRSA PCR Screen [[id number]] (Abnormal) Collected: 09/27/24 0751 Lab Status: Final result Specimen: Swab from Nares Updated: 09/27/24 1156 MRSA PCR Detected Narrative: This test was performed using the Xpert MRSA NxG test kit and is run on the [employer] GeneXpert Dx System. This test is cleared by the U.S. Food and Drug Administration for clinical use and its performance characteristics have been verified by the [facility] at [facility]. Anaerobic Culture [[id number]] Collected: 09/26/241649 Lab Status: Preliminary result Specimen: Abscess from Groin, Left Updated: 09/27/24 1142 Anaerobic Culture No anaerobic organisms isolated to date Anaerobic Culture [[id number]] Collected: 09/26/24 1702 Lab Status: Preliminary result Specimen: Abscess from Knee, Left Updated: 09/27/24 1142 Anaerobic Culture No anaerobic organisms isolated to date Fungus culture [[id number]] Collected: 09/26/241649 Lab Status: Preliminary result Specimen: Abscess from Groin, Left Updated: 09/27/24 0727 Fungus Culture No fungus isolated to date Fungus culture [[id number]] Collected: 09/26/24 1702 Lab Status: Preliminary result Specimen: Abscess from Knee, Left Updated: 09/27/24726 Fungus Culture No fungus isolated to date New Studies Results for orders placed or performed during the hospital encounter of 09/26/24 Request For 2nd Read CT Lower Extremity (Exam End: 09/26/2024 1:50 PM) Result Value WORKSTATION ID [id number] Impression 1. There is a left femoral [...] who have questions please contact the health health care specialist that requested your imaging first. Electronically signed by: Lisette Bruno MD, [facility] ([phone]), at 09/26/2024 3:[address] Lower Extremity w Contrast Left (Exam End: 09/27/2024 9:16 AM) Result Value WORKSTATION ID [id number] Impression IMPRESSION: 1. Interval explant of LEFT [...] who have questions please contact the health health care specialist that requested your imaging first. Electronically signed by: Ignacia Chi MD, [facility] ([phone]), at 09/27/2024 10:48 AM 09/28 ABIs Interpretation: [...] at proximal and distal anastomoses and a [place] drain placed from left groin to left thigh. The retained grafts have since been removed, with [place] drains in the L groin and thigh [...] Labs 09/28/24 1516 PHART 7.42 PO2ART 103 [id number] 39 LACTATEART 1.1 BEART 0.2 Is this [...] 1643 PHART 7.42 7.38 PO2ART 103 96 [id number] 39 41 LACTATEART 1.1 1.7 BEART 0.2 [...] Renea Nunez, MS, RD, LD, [facility] Clinical Nutrition * Mariya Shi RN - [...] Diet CC Monitoring: Q4 Fawn Cunningham APRN [facility] Endocrinology Diabetes Management Pager [phone] Weekends please page [phone] 35 minutes were spent over the course [...] Labs 09/26/24 1643 PHART 7.38 PO2ART 96 [id number] 41 LACTATEART 1.7 BEART -1.4 Is this [...] smoking 1 week ago. He presented to [facility] on 09/26 and went to the OR [...] Procedure Component Value - Date/Time Fungus culture [[id number]] Collected: 09/27/24 1654 Lab Status: Preliminary result Specimen: Tissue from Thigh, Left Updated: 09/28/24 0748 Fungus Culture No fungus isolated to date Blood culture [[id number]] (Abnormal) Collected: 09/26/24 1845 Lab Status: Preliminary result Specimen: Blood, Venous Updated: 09/28/24 0711 Blood Culture Methicillin Resistant Staphylococcus aureus Comment: isolated. Susceptibility testing in progress. Gram Stain Aerobic Bottle: Gram positive cocci in clusters AFB culture [[id number]] Collected: 09/26/24 1702 Lab Status: Preliminary result Specimen: Abscess from Knee, Left Updated: 09/27/24 2335 Acid Fast Stain No acid fast bacilli seen Tissue Culture, Aerobic Only [[id number]] Collected: 09/27/24 1654 Lab Status: Preliminary result Specimen: Tissue from Thigh, Left Updated: 09/27/24 1810 Gram Stain Few Neutrophils seen No microorganisms seen Abscess/Wound Aspirate Culture, Aerobic Only [[id number]] (Abnormal) Collected: 09/26/24 170 Lab Status: Preliminary result Specimen: Abscess from Knee, Left Updated: 09/27/24 1520 Abscess/Wound Aspirate Culture Many Staphylococcus aureus Gram Stain Many neutrophils Many Gram positive cocci Abscess/Wound Aspirate Culture, Aerobic Only [[id number]] (Abnormal) Collected: 09/26/24 165 Lab Status: Preliminary result Specimen: Abscess from Groin, Left Updated: 09/27/24 1519 Abscess/Wound Aspirate Culture Many Staphylococcus aureus Gram Stain Many neutrophils Many Gram positive cocci Blood culture [[id number]] (Abnormal) Collected: 09/26/24 1422 Lab Status: Preliminary result Specimen: Blood, Venous Updated: 09/27/24 1320 Blood Culture Methicillin Resistant Staphylococcus aureus Comment: detected by PCR Gram Stain Aerobic Bottle: Gram positive cocci in clusters MRSA PCR Screen [[id number]] (Abnormal) Collected: 09/27/24 0751 Lab Status: Final result Specimen: Swab from Nares Updated: 09/27/24 1156 MRSA PCR Detected Narrative: This test was performed using the Xpert MRSA NxG test kit and is run on the [employer] GeneXGLO Dx System. This test is cleared by the U.S. Food and Drug Administration for clinical use and its performance characteristics have been verified by the Clinical Genomics [facility] Laboratory at [facility]. Anaerobic Culture [[id number]] Collected: 09/26/24 1650 Lab Status: Preliminary result Specimen: Abscess from Groin, Left Updated: 09/27/24 1142 Anaerobic Culture No anaerobic organisms isolated to date Anaerobic Culture [[id number]] Collected: 09/26/24 1702 Lab Status: Preliminary result Specimen: Abscess from Knee, Left Updated: 09/27/24 1142 Anaerobic Culture No anaerobic organisms isolated to date Fungus culture [[id number]] Collected: 09/26/24 1650 Lab Status: Preliminary result Specimen: Abscess from Groin, Left Updated: 09/27/24726 Fungus Culture No fungus isolated to date Fungus culture [[id number]] Collected: 09/26/24 1702 Lab Status: Preliminary result Specimen: Abscess from Knee, Left Updated: 09/27/24726 Fungus Culture No fungus isolated to date New Studies Results for orders placed or performed during the hospital encounter of 09/26/24 Request For 2nd Read CT Lower Extremity (Exam End: 09/26/2024 1:50 PM) Result Value WORKSTATION ID [id number] Impression 1. There is a left femoral [...] who have questions please contact the health health care specialist that requested your imaging first. Electronically signed by: Lisette Bruno MD, [facility] ([phone]), at 09/26/2024 3:[address] Lower Extremity w Contrast Left (Exam End: 09/27/2024 9:16 AM) Result Value WORKSTATION ID [id number] Impression IMPRESSION: 1. Interval explant of LEFT [...] who have questions please contact the health health care specialist that requested your imaging first. Electronically signed by: Ignacia Chi MD, [facility] ([phone]), at 09/27/2024 10:48 AM Assessment & Plan [...] Kita Hodge - 09/27/2024 3:58 PM EST Rn Bone Marrow Transplant Encounter Note Patient Name: Geovanna Dixon Jr. : [id number] MR#: [id number] Admit Date: 09/26/2024 2:08 PM Hospital Day 1 day Narrative: Tower Hand initiated visit with patient during rounds on the unit. Patient indicated that he was not spiritism. He reported that he was in less [...] Labs 09/26/24 1643 PHART 7.38 PO2ART 96 [id number] 41 LACTATEART 1.7 BEART -1.4 Is this [...] smoking 1 week ago. He presented to [facility] on 09/26 and went to the OR [...] at proximal and distal anastomoses, and a [place] drain placed from left groin to left [...] HEALTH and was transported by ground to [facility] for vascular surgery consultation. Patient was admitted [...] performed by Thony Garcia MD at [facility] MAIN OR PRO BYPASS GRAFT OTHR, FEM-TIBIAL Left 08/01/2024 @BYPASS GRAFT, FEM-ANT TIBIAL, -POST TIBIAL, -PERONEAL, -DP W\ SYNTHETIC CONDUIT (WRVU 23.66) performed by Lisette Maldonado MD at [facility] MAIN OR PRO CABG, ARTERY-VEIN, SINGLE 01/04/2012 @CABG, VENOUS & ARTERIAL GRAFT;SINGLE VEIN GRAFT performed by INNA TOVAR at [facility] MAIN OR PRO ENDOSCOPY W/VIDEO-ASST VEIN HARVEST, CABG 01/04/2012 ENDOSCOPIC HARVEST VEIN(S) FOR CABG performed by INNA TOVAR at [facility] MAIN OR VS ARTERIOGRAM LOWER EXTREMITY VASCULAR SURGERY 07/20/2024 VS Arteriogram Lower Extremity Vascular Surgery 07/20/[address] [facility] INTERVENTIONL RAD Prior To Admission [...] 3 times daily. Use as instructed Indications: [id number] each 1 Past Week FreeStyle Lancets 28 [...] 200 - 393 mg/dL Type and screen ([facility]) Result Value Ref Range ABORH Type A POSITIVE PATIENT HISTORY Found Expires at 2359 on: 09/29/2024 ANTIBODY SCREEN AUTOMATED Negative T&S only valid at [facility] LAB CBC (with Diff) Result Value Ref [...] 09/26/2024 1:50 PM) Result Value WORKSTATION ID [id number] Impression 1. There is a left femoral [...] who have questions please contact the health health care specialist that requested your imaging first. Electronically signed by: Lisette Bruno MD, [facility] ([phone]), at 09/26/2024 3:01 PM Assessment/Plan: Geovanna Dixon [...] to the planned procedure. Hand Hygiene: The convention worker did perform hand hygiene prior to line insertion. Catheter type: PICC Lot number: [id number] Procedure Technique: Skin was prepped with chlorhexidine. [...] to the planned procedure. Hand Hygiene: The convention worker did perform hand hygiene prior to line insertion. Catheter type: PICC Lot number: [id number] Procedure Technique: Skin was prepped with chlorhexidine. [...] tomorrow afternoon. Home Vac: I have called [facility] Inventory and they they have now delivered the home ActiVac serial # [id number]. Pt reviewed the [facility] ActiVac Proof of Delivery/Assignment of Benefits (POD/AOB)form and signed it; she has copy of this and the [facility] Patient Copy letter along with the supplies, I will fax copy of the POD/AOB to [facility]. Needs for Transition of Care: Plan for discharge is: Home w/ Services Outpatient Agency/Support Group Needs: Homecare agency Outpatient IV Medications - IV Access: Access Ordered Location: Home, Referred to [facility] Coordination, Referred to [facility] Services: Occupational Therapy, Physical Therapy, Registered Nurse Agency Referrals & Follow-up Care: [facility] [address] [place] [address] Transportation: family or friend will provide Functional status prior to admission: Independent Home Environment: Others in the home: sibling(s), other (see comments) (lives with his sister delmy and brother in law). Current Living Arrangements: home/apartment/condo. Accessibility Concerns: . Current Functional Ability: Assistive Person and Equipment DME used at home: none Other DME Needs: Wound Vac Provider: [facility] Patient is insured through: Primary Insurance: [employer] MANAGED MEDICARE Payor: [employer] MANAGED MEDICARE / Plan: WELL[employer] MANAGED MEDICARE [...] Pain Flowsheets Taken 10/09/20242022 Pain Management Interventions: laiyxo-ijd-reawe dosing utilized care clustered diversional activity provided [...] from the original [place] [address] [facility] Vascular Access Service Peripherally Inserted Central Catheter (PICC) Teaching Sheet Peripherally inserted central catheters (ovkw-jt-shtu) (PICC) are used when you need IV [...] catheter? PICC lines are used for intermediate teacher treatments. PICC lines may be used [...] can be set up via the nurse Designer Architect to help you. What are possible complications [...] Efficacy, Safety, Use, and Administration of Cathflo, [employer] 2005 * Care Management - Cristina [...] MEDICARE Payor: WELL[employer] MANAGED MEDICARE / Plan: [employer] MANAGED MEDICARE PPO / Product Type: *No [...] Access: Access Ordered Location: Home, Referred to [facility] Coordination Home Health Services: Occupational Therapy, Physical Therapy, Registered Nurse- will remove PT, OT Agency Referrals: [facility] and [facility] [place] for [...] 9:00 AM EST OFFICE OF CARE MANAGEMENT Designer Architect Follow-up Note Cristina Turner RN reviewed record [...] medically ready. Current Referral in place: VNA: [facility] Wound vac ordered in [employer] for home wound vac and order emailed to: María for signature. Designer Architect to follow with team and family to [...] where referrals are placed. Request referral to [place], [place] for IV abx or . Expected date of discharge: 10/11. Patient will require teaching. Referral routed to the [employer] for matching with agency/vendor and to provide [...] care clustered diversional activity provided position adjusted zoreil-erg-wfudf dosing utilized pain management plan reviewed with [...] have. Alternately, during off-hours you may call [phone] to contact a pharmacist. * Plan of Care - Jordyn Navas RN - 10/07/2024 7:21 PM EST OUTCOME EVALUATION NOTE: OUTCOME SUMMARY: [facility], Meds/Assessments as charted, Frequent safety [...] EST PICC line placed today for intermediate teacher ABX. Neurovascular checks unchanged. Good oral [...] from the original [place] [address] [facility] Vascular Access Service Peripherally Inserted Central Catheter (PICC) Teaching Sheet Peripherally inserted central catheters (hjjk-yj-upuc) (PICC) are used when you need IV [...] catheter? PICC lines are used for intermediate teacher treatments. PICC lines may be used [...] can be set up via the nurse Designer Architect to help you. What are possible complications [...] Vascular Access Device Selection, Insertion, and Management, rag & bone Access Systems 08/12. A Review of the Efficacy, Safety, Use, and Administration of Cathflo, [employer] 2005 * Care Management - Vibha [...] through: Primary Insurance: [employer] MANAGED MEDICARE Payor: [employer] MEDICARE / Plan: [employer] MANAGED MEDICARE PPO / Product Type: *No [...] of Discharge: 10/10/2024 Vibha Wahl RN-BSN-CM Pager: [phone] * Consult Note - Stormy Muller, [facility] - 10/06/2024 9:19 AM EST [facility] Pharmacokinetics Note Drug: Vancomycin Pharmacokinetic target: AUC24 (range) 400-600 mg/L.hr Current regimen: 1250 mg IV every 8 hours Geovanna Dixon is a(n) 49 years old male receiving Vancomycin 1250 mg IV every 8 hours for MRSA bacteremia/graft infection Recent measured serum creatinine values: 10/06/2024 00:03 0.85 mg/dL 10/04/2024 23:50 0.55 mg/dL 10/04/2024 00:08 0.56 mg/dL Assessment: Analysis of the most recent level(s) using [employer] gives the following patient-specific pharmacokinetic parameters: CL: [...] in a steady-state trough of 14.6 mg/L [id number] of 508 mg/L.hr. Recommendations: - SCr has [...] Meeks MD - 10/04/2024 5:01 PM EST [facility] Operative Note Patient Name: Geovanna Dixon Jr. : [id number] MR#: [id number] Case Date: 10/04/2024 Surgeon: Surgeons and Role: * Marko Dickson MD - Primary * Cristino Meeks MD - Resident - Assisting Preoperative diagnosis: Status post explant of infected left HOSPITAL HOUSEKEEPER-BK pop bypass graft Postoperative diagnosis: Status post explant of infected left HOSPITAL HOUSEKEEPER-BK pop bypass graft Procedure(s) (LRB): DEBRIDEMENT SKIN [...] vein patch angioplasty of the left HOSPITAL HOUSEKEEPER and BK popliteal artery on 09/28 then [...] laid flat in the groin. 2 total RYA drains were left (1 from previously mentioned [...] Note Patient Name: Geovanna Dixon Jr. : [id number] MR#: [id number] Case Date: 10/04/2024 Surgeon: Surgeons and Role: * Marko Dickson MD - Primary * Cristino Meeks MD - Resident - Assisting Preoperative diagnosis: Status post explant of infected left HOSPITAL HOUSEKEEPER-BK pop bypass graft Postoperative diagnosis: Status post explant of infected left HOSPITAL HOUSEKEEPER-BK pop bypass graft Procedure(s) (LRB): DEBRIDEMENT SKIN [...] No Patient is insured through: Primary Insurance: [employer] MEDICARE Payor: [employer] MEDICARE / Plan: [employer] MANAGED MEDICARE PPO / Product Type: *No Product type* / Secondary Insurance: N/A Last Physical Therapy Recommendation: home with supervision (and support from family, prn) with None (10/03/24 1101) Last Occupational Therapy Recommendation: home (w/ family) with None (10/03/24 8614) Plan for discharge is: Pending Hospital Course [...] BIT to reengage please page BIT @ [phone] * Consult Note - Vangie Chandra [facility] - 10/04/2024 10:42 AM EST [facility] Pharmacokinetics Note Drug: Vancomycin Pharmacokinetic target: AUC24 (range) 400-600 mg/L.hr Current regimen: 1500 mg IV every 8 hours Geovanna Dixon is a(n) 49 years old male receiving Vancomycin 1500 mg IV every 8 hours for graft infection Recent measured serum creatinine values: 10/04/2024 00:08 0.56 mg/dL 10/03/2024 00:27 0.51 mg/dL 10/02/2024 00:41 0.49 mg/dL Assessment: Analysis of the most recent level(s) using [employer] gives the following patient-specific pharmacokinetic parameters: CL: [...] GSV harvest, vein patch angioplasty, L HOSPITAL HOUSEKEEPER and BK pop w/ sartorius flap L fem, I/D, 09/29 L sartorius flap revision, vac change. 10/03/24 NPO at [facility] for OR wound exploration. [...] performed by Thony Garcia MD at [facility] MAIN OR PRO BYPASS GRAFT OTHR, FEM-TIBIAL Left 08/01/2024 @BYPASS GRAFT, FEM-ANT TIBIAL, -POST TIBIAL, -PERONEAL, -DP W\ SYNTHETIC CONDUIT (WRVU 23.66) performed by Lisette Maldonado MD at [facility] MAIN OR PRO CABG, ARTERY-VEIN, SINGLE 01/04/2012 @CABG, VENOUS & ARTERIAL GRAFT;SINGLE VEIN GRAFT performed by INNA TOVAR at [facility] MAIN OR PRO DEBRIDEMENT MUSCLE AND FASCIA 20 SQ CM/< Left 09/29/2024 DEBRIDEMENT SKIN, SUBCU, MUSCLE, LOWER EXTREMITY (WRVU 2.7) performed by Anabel Finney MD at [facility] MAIN OR PRO DEBRIDEMENT MUSCLE AND FASCIA 20 SQ CM/< Left 10/02/2024 DEBRIDEMENT SKIN, SUBCU, MUSCLE, LOWER EXTREMITY (WRVU 2.7) performed by Hermila Mccormick MDat [facility] MAIN OR PRO DEBRIDEMENT SUBCUTANEOUS TISSUE 20 SQCM/< Left 09/27/2024 DEBRIDEMENT SKIN AND SUBCU, LOWER EXTREMITY (WRVU 1.01) performed by Hayley Torres MD at [facility] MAIN OR PRO DRAIN LOWER LEG DEEP ABSC/HEMATOMA Left 09/26/2024 INCISION & DRAINAGE, LEG OR ANKLE, DEEP ABSCESS OR HEMATOMA (WRVU 5.23) performed by Hayley Torres MD at [facility] MAIN OR PRO ENDOSCOPY W/VIDEO-ASST VEIN HARVEST, CABG 01/04/2012 ENDOSCOPIC HARVEST VEIN(S) FOR CABG performed by INNA TOVAR at [facility] MAIN OR PRO EXCISION, INFEC GRAFT, EXTREMITY Left 09/26/2024 EXCISION OF INFECTED GRAFT FROM LOWER EXTREMITY (WRVU 9.53) performed by Hayley Torres MD at [facility] MAIN OR PRO EXCISION, INFEC GRAFT, EXTREMITY Left 09/28/2024 EXCISION OF INFECTED GRAFT FROM LOWER EXTREMITY (WRVU 9.53) performed by Hayley Torres MD at [facility] MAIN OR PRO EXPLORATION NOT FOLLOWED BY SURG LOWER EXTREMITY ARTERY Left 09/29/2024 @EXPLORATION W\O SURGICAL REPAIR, FEMORAL ARTERY - JENNIFER (WRVU 7.5) performed by Anabel Finney MD at [facility] MAIN OR PRO FORM SKIN PEDICLE FLAP SCALP, ARM, LEG 09/28/2024 FLAP, PEDICLE,W OR W/O TRANSFER, LEGS (WRVU 10.12) performed by Hayley Torres MD at [facility] MAIN OR PRO I&D DEEP ABSCESS BURSA/HEMATOMA THIGH/KNEE REGION Left 09/26/2024 INCISION & DRAINAGE ABSCESS OR HEMATOMA, THIGH, KNEE SUPERFICIAL (WRVU 6.78) performed by Hayley Torres MD at [facility] MAIN OR PRO REVISION FEMORAL ANAST BPG GROIN OPEN W/NONAUTOG PATCH GRAFT Left 09/28/2024 REV. FEM. ANASTOMOSIS OF SYN. BYPASS GRAFT USING NONAUTOGENOUS PATCH ANGIOPLASTY-JENNIFER (WRVU 23.15) performed by Hayley Torres MD at [facility] MAIN OR PRO UNLISTED PROCEDURE VASCULAR SURGERY Left 09/28/2024 HARVEST SAPHENOUS VEIN (WRVU 13.24) performed by Hayley Torres MD at [facility] MAIN OR VS ARTERIOGRAM LOWER EXTREMITY VASCULAR SURGERY 07/20/2024 VS Arteriogram Lower Extremity Vascular Surgery 07/20/[address] [facility] INTERVENTIONL RAD Social History: Patient [...] Pt issued and educated on use of elastic attacher chainstitch for elastic attacher chainstitch lower items. Self-feeding: Independent Grooming: Set up [...] Discharge planning Total Minutes, Occupational Therapy: 35 ([phone]) OT Evaluation Code Rationale: Diagnosis & Pertinent Co-Morbidities affecting Plan of Care: see PMHx Occupational Profile & Client History: Brief Expanded Extensive x Assessment of Occupational Performance: 1-3 performance deficits 3-5 performance deficits x 5 + performance deficits Clinical Decision Making: Low Moderate High x Clinical decision making of low complexity using standardized patient assessment instrument and measurable assessment of functional outcome. Pager: [phone] Jorge Goetz OT 10/03/2024 Occupational Therapy Rehabilitation [...] Mccormick MD - 10/02/2024 2:06 PM EST [facility] Operative Note Patient Name: Geovanna Dixon Jr. : [id number] MR#: [id number] Case Date: 10/02/2024 Surgeon: Surgeons and Role: [...] the groin, we then attached a 15 [place] drain to the [place] drain, and remove the [place] drain, replacing it with the 15 [place] Jose drain. In a similar way we [...] through: Primary Insurance: [employer] MANAGED MEDICARE Payor: [employer] MANAGED MEDICARE / Plan: [employer] MANAGED MEDICARE PPO / Product Type: *No Product type* / Secondary Insurance: N/A Plan for discharge is: Pending Hospital Course and PT/OT Recommendations Outpatient Agency/Support Group Needs: None Home Health Services: Occupational Therapy, Physical Therapy, Registered Nurse Agency Referrals: [facility]. [address] [place] [id number] Transportation: family or friend will provide Barriers to discharge: Global: Denies needs/concerns at this time Plan: Patient is not medically ready related to: patient is going to the OR today for a washout andremains on blowout precautions. Plan going forward is: when able patient will need to work with PT/OT Anticipated Date of Discharge: 10/10/2024 Penny ROSAS RN CM Phone: [phone] Pager: [phone] * Plan of Care - Heidi Mobley [...] output. * Consult Note - Katelyn Oconnor [facility] - 09/30/2024 7:43 AM EST [facility] Pharmacokinetics Note Drug: Vancomycin Pharmacokinetic target: AUC24 (range) 400-600 mg/L.hr Current regimen: 1500 mg IV every 8 hours Geovanna Dixon is a(n) 49 years old male receiving Vancomycin 1500 mg IV every 8 hours for bacteremia Recent measured serum creatinine values: 09/29/2024 23:52 0.48 mg/dL 09/28/2024 23:51 0.52 mg/dL 09/27/2024 23:58 0.48 mg/dL Assessment: Analysis of the most recent level(s) using [employer] gives the following patient-specific pharmacokinetic parameters: CL: [...] Finney MD - 09/29/2024 2:41 PM EST [facility] Operative Note Patient Name: Geovanna Dixon Jr. : [id number] MR#: [id number] Case Date: 09/29/2024 Surgeon: Surgeons and Role: [...] and explored. The area around the HOSPITAL HOUSEKEEPER was irrigated copiously. The flap was then [...] through: Primary Insurance: [employer] MANAGED MEDICARE Payor: [email or web address] MANAGED MEDICARE / Plan: [employer] MANAGED MEDICARE PPO / Product Type: *No Product type* / Secondary Insurance: N/A Plan for discharge is: Pending Hospital Course and PT/OT Recommendations Outpatient Agency/Support Group Needs: None Home Health Services: Occupational Therapy, Physical Therapy, Registered Nurse Agency Referrals: [facility] [address] [place] [address] Transportation: family or friend will provide Barriers [...] Discharge: 10/04/2024 Penny ROSAS RN CM Phone: [phone] Pager: [phone] * Consult Note - Rose Wright APRN [...] smoking 1 week ago. He presented [facility] on 09[facility]26 and went to the OR [...] Procedure Component Value - Date/Time Blood culture [[id number]] (Abnormal) Collected: 09/27/242132 Lab Status: Preliminary result Specimen: Blood, Venous Updated: 09/29/24 0721 Blood Culture Methicillin Resistant Staphylococcus aureus Gram Stain Aerobic Bottle: Gram positive cocci in clusters Blood culture [[id number]] (Abnormal) Collected: 09/26/24 1845 Lab Status: Preliminary result Specimen: Blood, Venous Updated: 09/29/24 0719 Blood Culture Methicillin Resistant Staphylococcus aureus Comment: isolated. Susceptibilities previously reported. Gram Stain Aerobic Bottle: Gram positive cocci in clusters Blood culture [[id number]] (Abnormal) (Susceptibility) Collected: 09/26/24 1422 Lab Status: Preliminary result Specimen: Blood, Venous Updated: 09/29/24 0717 Blood Culture Methicillin Resistant Staphylococcus aureus Comment: detected by PCR Isolate saved. If future testing is required, contact the [facility]. Gram Stain Aerobic Bottle: Gram positive cocci in clusters Susceptibility Methicillin Resistant Staphylococcus aureus VITEK 2 METHOD Clindamycin Resistant Gentamicin Susceptible [1] Linezolid Susceptible Oxacillin Resistant Trimethoprim/Sulfa Susceptible Vancomycin Susceptible [1] Gentamicin is not appropriate for monotherapy for gram-positive infections. AFB culture [[id number]] Collected: 09/27/24 1654 Lab Status: Preliminary result Specimen: Tissue from Thigh, Left Updated: 09/28/24 2226 Acid Fast Stain No acid fast bacilli seen Anaerobic Culture [[id number]] Collected: 09/27/24 1654 Lab Status: Preliminary result Specimen: Tissue from Thigh, Left Updated: 09/28/24 1355 Anaerobic Culture No anaerobic organisms isolated to date Sonicated Tissue/Implant Culture [[id number]] Collected: 09/26/24 1716 Lab Status: Preliminary result Specimen: Vascular Graft from Leg, Left Updated: 09/28/24 1323 Sonicated Tissue/Implant Culture Culture in progress Tissue Culture, Aerobic Only [[id number]] (Abnormal) Collected: 09/27/24 1654 Lab Status: Preliminary result Specimen: Tissue from Thigh, Left Updated: 09/28/24 1049 Tissue Culture Rare Staphylococcus aureus Gram Stain Few Neutrophils seen No microorganisms seen Abscess/Wound Aspirate Culture, Aerobic Only [[id number]] (Abnormal) (Susceptibility) Collected: 09/26/24 1702 Lab Status: [...] to doxycycline. Abscess/Wound Aspirate Culture, Aerobic Only [[id number]] (Abnormal) (Susceptibility) Collected: 09/26/241649 Lab Status: Preliminary [...] is considered susceptible to doxycycline. Fungus culture [[id number]] Collected: 09/27/241653 Lab Status: Preliminary result Specimen: Tissue from Thigh, Left Updated: 09/28/24 0748 Fungus Culture No fungus isolated to date AFB culture [[id number]] Collected: 09/26/24 170 Lab Status: Preliminary result Specimen: Abscess from Knee, Left Updated: 09/27/24 2335 Acid Fast Stain No acid fast bacilli seen MRSA PCR Screen [[id number]] (Abnormal) Collected: 09/27/24 0751 Lab Status: Final result Specimen: Swab from Nares Updated: 09/27/24 1156 MRSA PCR Detected Narrative: This test was performed using the Xpert MRSA NxG test kit and is run on the [employer] GeneXGLO Dx System. This test is cleared by the U.S. Food and Drug Administration for clinical use and its performance characteristics have been verified by the [facility] at [facility]. Anaerobic Culture [[id number]] Collected: 09/26/241649 Lab Status: Preliminary result Specimen: Abscess from Groin, Left Updated: 09/27/24 1142 Anaerobic Culture No anaerobic organisms isolated to date Anaerobic Culture [[id number]] Collected: 09/26/24 170 Lab Status: Preliminary result Specimen: Abscess from Knee, Left Updated: 09/27/24 1142 Anaerobic Culture No anaerobic organisms isolated to date Fungus culture [[id number]] Collected: 09/26/24 1650 Lab Status: Preliminary result Specimen: Abscess from Groin, Left Updated: 09/27/24726 Fungus Culture No fungus isolated to date Fungus culture [[id number]] Collected: 09/26/24 1702 Lab Status: Preliminary result Specimen: Abscess from Knee, Left Updated: 09/27/24726 Fungus Culture No fungus isolated to date New Studies Results for orders placed or performed during the hospital encounter of 09/26/[address] Read CT Lower Extremity (Exam End: 09/26/2024 1:50 PM) Result Value WORKSTATION ID [id number] Impression 1. There is a left femoral [...] who have questions please contact the health health care specialist that requested your imaging first. Electronically signed by: Lisette Bruno MD, [facility] ([phone]), at 09/26/2024 3:[address] Lower Extremity w Contrast Left (Exam End: 09/27/2024 9:16 AM) Result Value WORKSTATION ID [id number] Impression IMPRESSION: 1. Interval explant of LEFT [...] who have questions please contact the health health care specialist that requested your imaging first. Electronically signed by: Ignacia Chi MD, [facility] ([phone]), at 09/27/2024 10:48 AM 09/28 ABIs Interpretation: [...] Torres MD - 09/28/2024 12:23 PM EST [facility] Operative Note Patient Name: Geovanna Dixon Jr. : [id number] MR#: [id number] Case Date: 09/28/2024 Surgeon: Surgeons and Role: [...] patch and PTFE willard over the HOSPITAL HOUSEKEEPER was unincorporated. - Resection of prior femoral [...] Destination 1 : Left femoral proximal graft Web Design Intern Leg, Left SURGICAL PATHOLOGY Hayley Torres MD 09/28/2024 1410 2 : Left distal BK pop graft Web Design Intern Leg, Left SURGICAL PATHOLOGY Hayley Torres MD [...] 49M with history of a left HOSPITAL HOUSEKEEPER-BK popliteal artery bypass with PTFE performed in [...] Systemic heparin was administered. Next, the HOSPITAL HOUSEKEEPER, SFA, and DFA were clamped. An 11-blade scalpel was used to excise the PTFE graft willard and the prior bovine pericardial patch, and all prior Prolene sutures were removed. Residual plaque in the arterial lumen was removed using a [place] elevator. The harvested vein patch was cut [...] the midline with division of the first finance clerk, such that the sartorius muscle was free [...] prior bypass graft were irrigated below the [place] drains. Significant thrombus burden was expelled in [...] Torres MD - 09/28/2024 12:23 PM EST [facility] Operative Note Patient Name: Geovanna Dixon Jr. : [id number] MR#: [id number] Case Date: 09/28/2024 Surgeon: Surgeons and Role: [...] Prior bovine pericardial patch over the HOSPITAL HOUSEKEEPER was unincorporated. - Resection of prior femoral [...] No * Consult Note - Tea Nguyen, [facility] - 09/28/2024 9:23 AM EST [...] Analysis of the most recent level(s) using TransperaRX gives the following patient-specific pharmacokinetic parameters: CL: [...] Note Patient Name: Geovanna Dixon Jr. : [id number] MR#: [id number] Case Date: 09/27/2024 Surgeon: Surgeons and Role: [...] AEROBIC & ANAEROBIC Hayley Torres MD 09/27/2024 3633 Fluids: Intraprocedure Crystalloid Total None PRBCs: none [...] Torres MD - 09/27/2024 4:27 PM EST [facility] Operative Note Patient Name: Geovanna Dixon Jr. : [id number] MR#: [id number] Case Date: 09/26/2024 Surgeon: Surgeons and Role: [...] distal anastomoses with Prolene tag on latter. [place] drain placed from left groin to left [...] ANAEROBIC Hayley Torres MD 09/26/2024 1702 Drains: [place] drain between left groin to left thigh [...] Indications: 49M with history of left HOSPITAL HOUSEKEEPER-BK popliteal artery bypass graft with PTFE (July [...] the tunnel was milked out. A 0.5 [place] drain was used to maintain patency of [...] Torres MD - 09/27/2024 4:27 PM EST [facility] Operative Note Patient Name: Geovanna Dixon Jr. : [id number] MR#: [id number] Case Date: 09/27/2024 Surgeon: Surgeons and Role: [...] smoking 1 week ago. He presented to [facility] on 09/26 and went to the OR [...] Cunningham APRN Endocrinology Diabetes Management Service Pager: [phone] Weekends please page [phone] 80 minute visit was spent in counseling [...] surrogate would be surrogate decision maker per [place] decision making law. (Only good for 180 days) Any patient receiving care in [place] must abide by [place] law. The hierarchy for surrogate decision making [...] In the past 12 months has the [employer], oil, or water [employer] threatened to shut off services in [...] DME: none Home Address confirmed as: [address] [address] Social & Family Supports: All names listed [...] his home before. Health/Prescription Coverage: Primary Insurance: [employer] MANAGED MEDICARE Payor: [employer] MANAGED MEDICARE / Plan: [facility] MANAGED MEDICARE PPO / Product Type: *No Product type* / Secondary Insurance: N/A ; Prescription Coverage: Yes Preferred Pharmacy: [id number] - [place], [place] - [address] [facility] [address] [place] [id number] [facility] [address] [place] [address] - [address] [place] [address] [place], [place] - [address] [place] [address] [address] [facility] [address] [facility] [address] Status: Patient is a : No Primary Care Provider confirmed: JUSTIN Roberson [phone] Patient/Caregiver Goals of Treatment: patient will need [...] where referrals are placed. Provided patient with [facility] Star Quality Rating handout. They have requested referrals to: [facility]. [address] [place] [id number] Expected date of discharge: TBD Referral routed to the [employer] [facility] for matching with agency/vendor and to provide [...] care as indicated. Penny ROSAS, RN Phone: [phone] Pager: [phone] * Consult Note - Stacey Thomas MD [...] the knee. He was transferred to [facility] for further care and he [...] performed by Thony Garcia MD at [facility] MAIN OR PRO BYPASS GRAFT OTHR, FEM-TIBIAL Left 08/01/2024 @BYPASS GRAFT, FEM-ANT TIBIAL, -POST TIBIAL, -PERONEAL, -DP W\ SYNTHETIC CONDUIT (WRVU 23.66) performed by Lisette Maldonado MD at [facility] MAIN OR PRO CABG, ARTERY-VEIN, SINGLE 01/04/2012 @CABG, VENOUS & ARTERIAL GRAFT;SINGLE VEIN GRAFT performed by INNA TOVAR at [facility] MAIN OR PRO ENDOSCOPY W/VIDEO-ASST VEIN HARVEST, CABG 01/04/2012 ENDOSCOPIC HARVEST VEIN(S) FOR CABG performed by INNA TOVAR at [facility] MAIN OR VS ARTERIOGRAM LOWER EXTREMITY VASCULAR SURGERY 07/20/2024 VS Arteriogram Lower Extremity Vascular Surgery 07/20/[address] [facility] INTERVENTIONL RAD Medications: potassium chloride [...] Continuous Infusions: lactated Ringers 100 mL/hr (09/27/24 3584) sodium chloride 0.9% PRN Meds:.potassium chloride ER [...] Torres MD - 09/26/2024 4:50 PM EST [facility] Operative Note Patient Name: Geovanna Dixon Jr. 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 MAIN OR PRO BYPASS GRAFT OTHR, FEM-TIBIAL Left 08/01/2024 @BYPASS GRAFT, FEM-ANT TIBIAL, -POST TIBIAL, -PERONEAL, -DP W\ SYNTHETIC CONDUIT (WRVU 23.66) performed by Lisette Maldonado MD at [facility] MAIN OR PRO CABG, ARTERY-VEIN, SINGLE 01/04/2012 @CABG, VENOUS & ARTERIAL GRAFT;SINGLE VEIN GRAFT performed by INNA TOVAR at [facility] MAIN OR PRO ENDOSCOPY W/VIDEO-ASST VEIN HARVEST, CABG 01/04/2012 ENDOSCOPIC HARVEST VEIN(S) FOR CABG performed by INNA TOVAR at [facility] MAIN OR VS ARTERIOGRAM LOWER EXTREMITY VASCULAR SURGERY 07/20/2024 VS Arteriogram Lower Extremity Vascular Surgery 07/20/[address] [facility] INTERVENTIONL RAD Social Hx: Social [...] 3 times daily. Use as instructed Indications: [id number] each 1 FreeStyle Lancets 28 gauge Misc [...] PM EST Office Visit [place] [address] Isabela Hayward APRN [facility] IN[place]ECTIOUS [place] [address] 11/10/2024 10:00 AM EST Office [place] [address] Dai Whitman APRN 11/21/2024 2:15 PM EST Office [place] [address] Dayanara Grover MD [facility] DR ENDOCRINOLOG[place] [address] Pending Results Name Type Priority Associated Diagnoses [...] Debridement Muscle And Fascia 20 Sq Cm/< (05782) 09/29/2024 2:06 PM EST explanted LLE infected graft Exploration Not Followed By Surg Lower Extremity Artery ([id number]) 09/29/2024 2:06 PM EST explanted LLE infected [...] Non-fasting (10/16/2024) Glucose Lvl - External 124(H) [facility] Blood Urea Nitrogen - External 17 [facility] Creatinine - External 0.9 [facility] EGFR - External 104.05 [facility] Anion Gap - External 11.6(H) [facility] Sodium - External 141 [facility] Potassium - External 4.3 [facility] Chloride - External 103 [facility] CO2 - External 26.4 [facility] Calcium - External 9.0 [facility] Protein, Total - External 6.9 [facility] Albumin - External 3.0(L) [facility] Total Bilirubin - External 0.20 [facility] Alk Phos - External 124(H) [facility] AST (SGOT) - External 12 [facility] ALT (SGPT) - External 22 [facility] Blood VENOUS BLOOD SPECIMEN / Unknown 10/16/2024 Amaya Hernandez MD CHEMISTRY ORDERABLES Performing Organization Address City/[facility] Co de Phone Number [address] [place] [phone] * CK (10/16/2024) CK, Total - External 39 [facility] Blood VENOUS BLOOD SPECIMEN / Unknown 10/16/2024 Amaya Hernandez MD CHEMISTRY ORDERABLES [address] [place] [phone] * (ABNORMAL) CBC (with Diff) (10/16/2024) WBC - External 10.99(H) [facility] RBC - External 3.71(L) [facility] Hemoglobin - External 10.8(L) [facility] Hematocrit - External 33.8(L) [facility] MCV - External 91 [facility] MCH - External 29.1 [facility] MCHC - External 32.0 [facility] RDWCV - External 14.2(H) [facility] Platelets - External 512(H) [facility] MPV - External 9.8 [facility] NRBC % - External 0.0 [facility] NRBC Abs - External 0.0 [facility] Neutrophils % - External 64.2 [facility] Lymphocytes % - External 25.8 [facility] Monocytes % - External 6.8 [facility] Eosinophils % - External 2.0 [facility] Basophils % - External 0.9 [facility] Immature Gran % - External 0.3 [facility] Neutr ABS (ANC) - External 7.06(H) [facility] Lymphocyte ABS - External 2.84 [facility] Monocyte ABS - External 0.75 [facility] Eosinophil ABS - External 0.22 [facility] Basophil ABS - External 0.10 [facility] Blood VENOUS BLOOD SPECIMEN / Unknown 10/16/2024 Amaya Hernandez MD HEMATOLOGY ORDERABLE S Performing Organization Address City/State/[facility] Co de Phone Number [facility] [address] [place] [phone] * POC, GLUCOSE (10/10/2024 4:27 PM EST) Glucometer, POC 172 65 - 199 mg/dL 10/10/2024 4:27 PM EST [facility] Comment:Supplemental ranges: <140 mg/dL before meals <180 mg/dL all other times of the day. Blood CAPILLARY BLOOD / Unknown 10/10/2024 4:27 PM EST 10/10/2024 4:27 PM EST Hayley Torres MD POINT OF CARE TEST O RDERAHERNANDEZ Performing Organization Address City/[facility]/ZIP Co de Phone Number [facility] [place] [address] * POC, GLUCOSE (10/10/2024 11:10 AM EST) Glucometer, POC 174 65 - 199 mg/dL 10/10/2024 11:11 AM EST [facility] Comment:Supplemental ranges: <140 mg/dL before meals <180 mg/dL all other times of the day. Blood CAPILLARY BLOOD / Unknown 10/10/2024 11:10 AM EST 10/10/2024 11:11 AM EST Hayley Torres MD POINT OF CARE TEST O GILDA Performing Organization Address [facility] Co de Phone Number [facility] [place] [address] * POC, GLUCOSE (10/10/2024 7:46 AM EST) Glucometer, POC 141 65 - 199 mg/dL 10/10/2024 7:46 AM EST [facility] Comment:Supplemental ranges: <140 mg/dL before meals <180 mg/dL all other times of the day. Blood CAPILLARY BLOOD / Unknown 10/10/2024 7:46 AM EST 10/10/2024 7:46 AM EST Hayley Torres MD POINT OF CARE TEST O GILDA Performing Organization Address City/[facility]/ZIP Co de Phone Number [facility] [place] [address] * POC, GLUCOSE (10/10/2024 6:11 AM EST) Glucometer, POC 127 65 - 199 mg/dL 10/10/2024 6:11 AM EST [facility] Comment:Supplemental ranges: <140 mg/dL before meals <180 mg/dL all other times of the day. Blood CAPILLARY BLOOD / Unknown 10/10/2024 6:11 AM EST 10/10/2024 6:11 AM EST Hayley Torres MD POINT OF CARE TEST O RDERABLES Performing Organization Address City/[facility]/ZIP Co de Phone Number [facility] [place] [address] * CK (10/10/2024 12:33 AM EST) Pathologist [facility] Creatine Kinase 32 0 - 200 unit/L 10/10/2024 8:54 AM [facility] Blood VENOUS BLOOD SPECIMEN / Unknown Venipuncture / Unknown 10/10/2024 12:33 AM EST 10/10/2024 12:43 AM EST María Carranza APRN CHEMISTRY ORDER RANDELL Performing Organization Address City/[facility]/ZIP Co de Phone Number [facility] [place] [address] * (ABNORMAL) CBC (with Diff) (10/10/2024 12:33 AM EST) White Blood Cell 11.57(H) 4.00 - 9.50 x10(3)/mc L 10/10/2024 12:48 AM [facility] Red Blood Cell 3.75(L) 4.58 - 5.54 x10(6)/mc L 10/10/2024 12:48 AM [facility] Hemoglobin 11.1(L) 13.7 - 16.5 g/dL 10/10/2024 12:48 AM [facility] Hematocrit 33.5(L) 40.5 - 48.5 % 10/10/2024 12:48 AM [facility] Mean Cell Volume 89.3 82.9 - 93.1 fL 10/10/2024 12:48 AM [facility] Mean Cell Hemoglobin 29.6 27.5 - 32.1 pg 10/10/2024 12:48 AM [facility] Mean Cell Hemoglobin Concentration 33.1 32.0 - 35.7 g/dL 10/10/2024 12:48 AM [facility] Platelet 823(H) 145 - 357 x10(3)/mc L 10/10/2024 12:48 AM [facility] Mean Platelet Volume 9.2 7.6 - 12.9 fL 10/10/2024 12:48 AM [facility] RDW Standard Deviation 46.3(H) 36.0 - 45.0 fL 10/10/2024 12:48 AM [facility] RDW coefficient of variation 14.6(H) 11.4 - 13.8 % 10/10/2024 12:48 AM [facility] NRBC% auto 0.0 % 10/10/2024 12:48 AM [facility] NRBC Absolute <0.01 <0.01 x10(3)/mc L 10/10/2024 12:48 AM [facility] Neutrophil % 61.3 % 10/10/2024 12:48 AM [facility] Neutrophil Absolute (ANC) - Automated 7.08(H) 1.70 - 6.10 x10(3)/mc L 10/10/2024 12:48 AM [facility] Lymph % 28.7 % 10/10/2024 12:48 AM [facility] Lymph Absolute 3.32(H) 0.90 - 3.20 x10(3)/mc L 10/10/2024 12:48 AM [facility] Monocyte % 7.0 % 10/10/2024 12:48 AM [facility] Monocyte Absolute 0.81 0.30 - 0.90 x10(3)/mc L 10/10/2024 12:48 AM [facility] Eos % 1.6 % 10/10/2024 12:48 AM [facility] Eos Absolute 0.19 0.00 - 0.40 x10(3)/mc L 10/10/2024 12:48 AM [facility] Basophil % 1.0 % 10/10/2024 12:48 AM [facility] Baso Absolute 0.12(H) 0.00 - 0.10 x10(3)/mc L 10/10/2024 12:48 AM [facility] Immature Gran % 0.4 % 12:48 AM [facility] Immature Gran Absolute 0.05(H) 0.00 - 0.04 x10(3)/mc L 10/10/2024 12:48 AM [facility] Blood VENOUS BLOOD SPECIMEN / Unknown Venipuncture / Unknown 10/10/2024 12:33 AM EST 10/10/2024 12:43 AM EST Hayley Torres MD HEMATOLOGY ORDERABLE S Performing Organization Address City/State/[facility] Co de Phone Number [facility] [place] [address] * (ABNORMAL) Basic Metabolic Panel (10/10/2024 12:33 AM EST) Glucose 125 65 - 199 mg/dL 10/10/2024 1:12 AM [facility] Comment:Glucose Concentratio n >=200 mg/dL plus symptoms is consistent with Diabetes Mellitus. Blood Urea Nitrogen 19 10 - 20 mg/dL 10/10/2024 1:12 AM [facility] Creatinine 0.57(L) 0.80 - 1.50 mg/dL 10/10/2024 1:12 AM [facility] Sodium 138 135 - 145 mMol/L 10/10/2024 1:12 AM [facility] Potassium 4.1 3.5 - 5.0 mMol/L 10/10/2024 1:12 AM [facility] Chloride 103 98 - 107 mMol/L 10/10/2024 1:12 AM [facility] Carbon Dioxide 25 22 - 31 mMol/L 10/10/2024 1:12 AM EST [facility] Anion Gap 10 5 [...] MD CHEMISTRY ORDERABLES [facility] [place] [address] * Phosphorus (10/10/2024 12:33 AM EST) Phosphorus 3.8 2.5 - 4.5 mg/dL 10/10/2024 1:12 AM EST [facility] Blood VENOUS BLOOD SPECIMEN / Unknown Venipuncture / Unknown 10/10/2024 12:33 AM EST 10/10/2024 12:43 AM EST Hayley Torres MD CHEMISTRY ORDERABLES [facility] [place] [address] * Magnesium (10/10/2024 12:33 AM EST) Magnesium 0.81 0.69 - 1.07 mMol/L 10/10/2024 1:12 AM EST [facility] Blood VENOUS BLOOD SPECIMEN / Unknown Venipuncture / Unknown 10/10/2024 12:33 AM EST 10/10/2024 12:43 AM EST Hayley Torres MD CHEMISTRY ORDERABLES Performing Organization Address [facility] [facility] Co de Phone Number [facility] [place] [address] * POC, GLUCOSE (10/10/2024 12:31 AM EST) [...] RDERABLES Performing Organization Address [facility] Co de Phone Number [facility] [place] [address] * POC, GLUCOSE (10/09/2024 8:16 PM EST) [...] RDERABLES Performing Organization Address [facility] Co de Phone Number [facility] [place] [address] * POC, GLUCOSE (10/09/2024 3:57 PM EST) Glucometer, POC 120 65 - 199 mg/dL 10/09/2024 3:57 PM EST [facility] Comment:Supplemental ranges: <140 mg/dL before meals <180 mg/dL all other times of the day. Blood CAPILLARY BLOOD / Unknown 10/09/2024 3:57 PM EST 10/09/2024 3:57 PM EST Hayley Torres MD POINT OF CARE TEST O RDERABLES [facility] [place] [address] * Place PICC Line: Contact Vascular Access Page [phone] Extremity to exclude: No restrictions; Is PICC [...] to the planned procedure. Hand Hygiene: The convention worker did perform hand hygiene prior to line insertion. Catheter type: PICC Lot number: [id number] Procedure Technique: Skin was prepped with chlorhexidine. [...] Guidance (IV Team) (10/09/2024 1:55 PM EST) Digital [employer] Signature WORKSTATION ID [id number] RAD Anatomical Region Laterality Modality N/A Radio [...] who have questions please contact the health health care specialist that requested your imaging first. ? Electronically signed by: Terell Salvador MD, [facility] ([phone]), at 10/09/2024 3:30 PM Narrative 10/09/2024 3:30 [...] patients who have questions please contactthe health health care specialist that requested your imaging first. Electronically signed by: Terell Salvador MD, [facility]([phone]), at 10/09/2024 3:30 PM María Carranza APRN IMG [facility]ANCH[facility]KA [facility]ERT * POC, GLUCOSE (10/09/2024 11:40 AM EST) [facility] Glucometer, POC 180 65 - 199 mg/dL 10/09/2024 11:40 AM EST [facility] Comment:Supplemental ranges: <140 mg/dL before meals <180 mg/dL all other times of the day. Blood CAPILLARY BLOOD / Unknown 10/09/2024 11:40 AM EST 10/09/2024 11:41 AM EST Hayley Torres MD POINT OF CARE TEST O GILDA Performing Organization Address [facility] de Phone Number [facility] [place] [address] * (ABNORMAL) POC, GLUCOSE (10/09/2024 7:35 AM EST) Glucometer, POC 215(H) 65 - 199 mg/dL 10/09/2024 7:36 AM EST [facility] Comment:Supplemental ranges: <140 mg/dL before meals <180 mg/dL all other times of the day. Blood CAPILLARY BLOOD / Unknown 10/09/2024 7:35 AM EST 10/09/2024 7:36 AM EST Hayley Torres MD POINT OF CARE TEST O GILDA Performing Organization Address [facility] de Phone Number [facility] [place] [address] * POC, GLUCOSE (10/09/2024 4:26 AM EST) Glucometer, POC 175 65 - 199 mg/dL 10/09/2024 4:26 AM EST [facility] Comment:Supplemental ranges: <140 mg/dL before meals <180 mg/dL all other times of the day. Blood CAPILLARY BLOOD / Unknown 10/09/2024 4:26 AM EST 10/09/2024 4:26 AM EST Hayley Torres MD POINT OF CARE TEST O GILDA Performing Organization Address [facility] Co de Phone Number [facility] [place] [address] * (ABNORMAL) CBC (with Diff) (10/09/2024 12:45 AM EST) White Blood Cell 11.27(H) 4.00 - 9.50 x10(3)/mc L 10/09/2024 1:31 AM [facility] Red Blood Cell 3.74(L) 4.58 - 5.54 x10(6)/mc L 10/09/2024 1:31 AM [facility] Hemoglobin 10.8(L) 13.7 - 16.5 g/dL 10/09/2024 1:31 AM [facility] Hematocrit 33.5(L) 40.5 - 48.5 % 10/09/2024 1:31 AM [facility] Mean Cell Volume 89.6 82.9 - 93.1 fL 10/09/2024 1:31 AM [facility] Mean Cell Hemoglobin 28.9 27.5 - 32.1 pg 10/09/2024 1:31 AM [facility] Mean Cell Hemoglobin Concentration 32.2 32.0 - 35.7 g/dL 10/09/2024 1:31 AM [facility] Platelet 886(H) 145 - 357 x10(3)/mc L 10/09/2024 1:31 AM [facility] Mean Platelet Volume 9.5 7.6 - 12.9 fL 10/09/2024 1:31 AM [facility] RDW Standard Deviation 47.7(H) 36.0 - 45.0 fL 10/09/2024 1:31 AM [facility] RDW coefficient of variation 14.6(H) 11.4 - 13.8 % 10/09/2024 1:31 AM [facility] NRBC% auto 0.0 % 10/09/2024 1:31 AM [facility] NRBC Absolute <0.01 <0.01 x10(3)/mc L 10/09/2024 1:31 AM [facility] Neutrophil % 61.7 % 10/09/2024 1:31 AM [facility] Neutrophil Absolute (ANC) - Automated 6.95(H) 1.70 - 6.10 x10(3)/mc L 10/09/2024 1:31 AM [facility] Lymph % 28.3 % 10/09/2024 1:31 AM [facility] Lymph Absolute 3.19 0.90 - 3.20 x10(3)/mc L 10/09/2024 1:31 AM [facility] Monocyte % 6.8 % 10/09/2024 1:31 AM [facility] Monocyte Absolute 0.77 0.30 - 0.90 x10(3)/mc L 10/09/2024 1:31 AM [facility] Eos % 1.5 % 10/09/2024 1:31 AM [facility] Eos Absolute 0.17 0.00 - 0.40 x10(3)/mc L 10/09/2024 1:31 AM [facility] Basophil % 1.1 % 10/09/2024 1:31 AM [facility] Baso Absolute 0.12(H) 0.00 - 0.10 x10(3)/mc L 10/09/2024 1:31 AM [facility] Immature Gran % 0.6 % 1:31 AM [facility] Immature Gran Absolute 0.07(H) 0.00 - 0.04 x10(3)/mc L 10/09/2024 1:31 AM [facility] Blood VENOUS BLOOD SPECIMEN / Unknown Venipuncture / Unknown 10/09/2024 12:45 AM EST 10/09/2024 1:27 AM EST Hayley Torres MD HEMATOLOGY ORDERABLE S [facility] [place] [address] * (ABNORMAL) Basic Metabolic Panel (10/09/2024 12:45 AM EST) Glucose 135 65 - 199 mg/dL 10/09/2024 1:54 AM [facility] Comment:Glucose Concentratio n >=200 mg/dL plus symptoms is consistent with Diabetes Mellitus. Blood Urea Nitrogen 22(H) 10 - 20 mg/dL 10/09/2024 1:54 AM [facility] Creatinine 0.53(L) 0.80 - 1.50 mg/dL 10/09/2024 1:54 AM [facility] Sodium 138 135 - 145 mMol/L 10/09/2024 1:54 AM [facility] Potassium 4.1 3.5 - 5.0 mMol/L 10/09/2024 1:54 AM [facility] Chloride 102 98 - 107 mMol/L 10/09/2024 1:54 AM [facility] Carbon Dioxide 24 22 - 31 mMol/L 10/09/2024 1:54 AM [facility] Anion Gap 12 5 - 15 mMol/L 10/09/2024 1:54 AM [facility] Calcium 9.4 8.5 - 10.5 mg/dL 10/09/2024 1:54 AM [facility] Est Glomerular Filtration Rate - Male 122 mL/min/1. 73 m?? 10/09/2024 1:54 AM [facility] Comment: This patient's estimated GFR [...] MD CHEMISTRY ORDERABLES [facility] [place] [address] * Phosphorus (10/09/2024 12:45 AM EST) Phosphorus 3.9 2.5 - 4.5 mg/dL 10/09/2024 1:54 AM EST [facility] Blood VENOUS BLOOD SPECIMEN / Unknown Venipuncture / Unknown 10/09/2024 12:45 AM EST 10/09/2024 1:27 AM EST Hayley Torres MD CHEMISTRY ORDERABLES [facility] [place] [address] * Magnesium (10/09/2024 12:45 AM EST) Magnesium 0.80 0.69 - 1.07 mMol/L 10/09/2024 1:54 AM EST [facility] Blood VENOUS BLOOD SPECIMEN / Unknown Venipuncture / Unknown 10/09/2024 12:45 AM EST 10/09/2024 1:27 AM EST Hayley Torres MD CHEMISTRY ORDERABLES Performing Organization Address City/[facility] Co de Phone Number [facility] [place] [address] * POC, GLUCOSE (10/09/2024 12:11 AM EST) Glucometer, POC 157 65 - 199 mg/dL 10/09/2024 12:11 AM EST [facility] Comment:Supplemental ranges: <140 mg/dL before meals <180 mg/dL all other times of the day. Blood CAPILLARY BLOOD / Unknown 10/09/2024 12:11 AM EST 10/09/2024 12:11 AM EST Hayley Torres MD POINT OF CARE TEST O RDERABLES [facility] [place] [address] * POC, GLUCOSE (10/08/2024 7:25 PM EST) Glucometer, POC 157 65 - 199 mg/dL 10/08/2024 7:25 PM EST [facility] Comment:Supplemental ranges: <140 mg/dL before meals <180 mg/dL all other times of the day. Blood CAPILLARY BLOOD / Unknown 10/08/2024 7:25 PM EST 10/08/2024 7:25 PM EST Hayley Torres MD POINT OF CARE TEST O DIMITRIERAHERNANDEZ Performing Organization Address City/[facility]/ZIP Co de Phone Number [facility] [place] [address] * POC, GLUCOSE (10/08/2024 5:54 PM EST) Glucometer, POC 198 65 - 199 mg/dL 10/08/2024 5:54 PM EST [facility] Comment:Supplemental ranges: <140 mg/dL before meals <180 mg/dL all other times of the day. Blood CAPILLARY BLOOD / Unknown 10/08/2024 5:54 PM EST 10/08/2024 5:54 PM EST Hayley Torres MD POINT OF CARE TEST O GILDA [facility] [place] [address] * (ABNORMAL) POC, GLUCOSE (10/08/2024 4:08 PM EST) Glucometer, POC 281(H) 65 - 199 mg/dL 10/08/2024 4:08 PM EST [facility] Comment:Supplemental ranges: <140 mg/dL before meals <180 mg/dL all other times of the day. Blood CAPILLARY BLOOD / Unknown 10/08/2024 4:08 PM EST 10/08/2024 4:09 PM EST Hayley Torres MD POINT OF CARE TEST O GILDA Performing Organization Address [facility] de Phone Number [facility] [place] [address] * POC, GLUCOSE (10/08/2024 12:44 PM EST) Glucometer, POC 146 65 - 199 mg/dL 10/08/2024 12:44 PM EST [facility] Comment:Supplemental ranges: <140 mg/dL before meals <180 mg/dL all other times of the day. Blood CAPILLARY BLOOD / Unknown 10/08/2024 12:44 PM EST 10/08/2024 12:44 PM EST Hayley Torres MD POINT OF CARE TEST O GILDA Performing Organization Address [facility] de Phone Number [facility] [place] [address] * POC, GLUCOSE (10/08/2024 8:30 AM EST) Glucometer, POC 172 65 - 199 mg/dL 10/08/2024 8:30 AM EST [facility] Comment:Supplemental ranges: <140 mg/dL before meals <180 mg/dL all other times of the day. Blood CAPILLARY BLOOD / Unknown 10/08/2024 8:30 AM EST 10/08/2024 8:30 AM EST Hayley Torres MD POINT OF CARE TEST O GILDA Performing Organization Address [facility] de Phone Number [facility] [place] [address] * Vancomycin Level, Random (10/08/2024 5:59 AM EST) Vancomycin, Random 6.8 mg/L 2023 7:58 AM EST [facility] Comment:This level is for de termination of the patient's vancomycin xyns-falyb-fln-curve (AUC) value. Contact the inpatient pharmacy for interpretation. Blood VENOUS BLOOD SPECIMEN / Unknown Venipuncture / Unknown 10/08/2024 5:59 AM EST 10/08/2024 7:29 AM EST Hayley Torres MD CHEMISTRY ORDERABLES Performing Organization Address [facility]/ZIP Co de Phone Number [facility] [place] [address] * POC, GLUCOSE (10/08/2024 4:02 AM EST) [facility] Glucometer, POC 163 65 - 199 mg/dL 10/08/2024 4:02 AM [facility] Comment:Supplemental ranges: <140 mg/dL before meals <180 mg/dL all other times of the day. Blood CAPILLARY BLOOD / Unknown 10/08/2024 4:02 AM EST 10/08/2024 4:02 AM EST Hayley Torres MD POINT OF CARE TEST O RDERABLES Performing Organization Address City/[facility]/ZIP Co de Phone Number [facility] [place] [address] * (ABNORMAL) CBC (with Diff) (10/08/2024 12:08 AM EST) [facility] White Blood Cell 10.35(H) 4.00 - 9.50 x10(3)/mc L 10/08/2024 12:29 AM [facility] Red Blood Cell 3.53(L) 4.58 - 5.54 x10(6)/mc L 10/08/2024 12:29 AM [facility] Hemoglobin 10.2(L) 13.7 - 16.5 g/dL 10/08/2024 12:29 AM [facility] Hematocrit 31.7(L) 40.5 - 48.5 % 10/08/2024 12:29 AM [facility] Mean Cell Volume 89.8 82.9 - 93.1 fL 10/08/2024 12:29 AM [facility] Mean Cell Hemoglobin 28.9 27.5 - 32.1 pg 10/08/2024 12:29 AM [facility] Mean Cell Hemoglobin Concentration 32.2 32.0 - 35.7 g/dL 10/08/2024 12:29 AM [facility] Platelet 778(H) 145 - 357 x10(3)/mc L 10/08/2024 12:29 AM [facility] Mean Platelet Volume 9.1 7.6 - 12.9 fL 10/08/2024 12:29 AM [facility] RDW Standard Deviation 47.5(H) 36.0 - 45.0 fL 10/08/2024 12:29 AM [facility] RDW coefficient of variation 14.6(H) 11.4 - 13.8 % 10/08/2024 12:29 AM [facility] NRBC% auto 0.0 % 10/08/2024 12:29 AM [facility] NRBC Absolute <0.01 <0.01 x10(3)/mc L 10/08/2024 12:29 AM [facility] Neutrophil % 60.9 % 10/08/2024 12:29 AM [facility] Neutrophil Absolute (ANC) - Automated 6.30(H) 1.70 - 6.10 x10(3)/mc L 10/08/2024 12:29 AM [facility] Lymph % 28.4 % 10/08/2024 12:29 AM [facility] Lymph Absolute 2.94 0.90 - 3.20 x10(3)/mc L 10/08/2024 12:29 AM [facility] Monocyte % 7.2 % 10/08/2024 12:29 AM [facility] Monocyte Absolute 0.75 0.30 - 0.90 x10(3)/mc L 10/08/2024 12:29 AM [facility] Eos % 1.7 % 10/08/2024 12:29 AM [facility] Eos Absolute 0.18 0.00 - 0.40 x10(3)/mc L 10/08/2024 12:29 AM [facility] Basophil % 1.0 % 10/08/2024 12:29 AM [facility] Baso Absolute 0.10 0.00 - 0.10 x10(3)/mc L 10/08/2024 12:29 AM [facility] Immature Gran % 0.8 % 12:29 AM [facility] Immature Gran Absolute 0.08(H) 0.00 - 0.04 x10(3)/mc L 10/08/2024 12:29 AM [facility] Blood VENOUS BLOOD SPECIMEN / Unknown Venipuncture / Unknown 10/08/2024 12:08 AM EST 10/08/2024 12:23 AM EST Hayley Torres MD HEMATOLOGY ORDERABLE S Performing Organization Address City/State/[facility] Co de Phone Number [facility] [place] [address] * (ABNORMAL) Basic Metabolic Panel (10/08/2024 12:08 AM EST) Glucose 151 65 - 199 mg/dL 10/08/2024 12:50 AM [facility] Comment:Glucose Concentratio n >=200 mg/dL plus symptoms is consistent with Diabetes Mellitus. Blood Urea Nitrogen 19 10 - 20 mg/dL 10/08/2024 12:50 AM [facility] Creatinine 0.60(L) 0.80 - 1.50 mg/dL 10/08/2024 12:50 AM [facility] Sodium 135 135 - 145 mMol/L 10/08/2024 12:50 AM [facility] Potassium 3.8 3.5 - 5.0 mMol/L 10/08/2024 12:50 AM [facility] Chloride 101 98 - 107 mMol/L 10/08/2024 12:50 AM [facility] Carbon Dioxide 25 22 - 31 mMol/L 10/08/2024 12:50 AM EST [facility] Anion Gap 9 5 - 15 mMol/L 10/08/2024 12:50 AM EST [facility] Calcium 9.2 8.5 - 10.5 mg/dL 10/08/2024 12:50 AM EST [facility] Est Glomerular Filtration Rate - Male 118 mL/min/1. 73 m?? 10/08/2024 12:50 AM EST [facility] Comment: [...] MD CHEMISTRY ORDERABLES [facility] [place] [address] * Phosphorus (10/08/2024 12:08 AM EST) Phosphorus 3.4 2.5 - 4.5 mg/dL 10/08/2024 12:50 AM EST [facility] Blood VENOUS BLOOD SPECIMEN / Unknown Venipuncture / Unknown 10/08/2024 12:08 AM EST 10/08/2024 12:23 AM EST Hayley Torres MD CHEMISTRY ORDERABLES [facility] [place] [address] * Magnesium (10/08/2024 12:08 AM EST) Magnesium 0.85 0.69 - 1.07 mMol/L 10/08/2024 12:50 AM EST [facility] Blood VENOUS BLOOD SPECIMEN / Unknown Venipuncture / Unknown 10/08/2024 12:08 AM EST 10/08/2024 12:23 AM EST Hayley Torres MD CHEMISTRY ORDERABLES [facility] [place] [address] * CK (10/08/2024 12:08 AM EST) Creatine Kinase 24 0 - 200 unit/L 10/08/2024 12:50 AM EST [facility] Blood VENOUS BLOOD SPECIMEN / Unknown Venipuncture / Unknown 10/08/2024 12:08 AM EST 10/08/2024 12:23 AM EST Hayley Torres MD CHEMISTRY ORDERABLES Performing Organization Address City/[facility]/ZIP Co de Phone Number [facility] [place] [address] * POC, GLUCOSE (10/08/2024 12:05 AM EST) Glucometer, POC 100 65 - 199 mg/dL 10/08/2024 12:05 AM EST [facility] Comment:Supplemental ranges: <140 mg/dL before meals <180 mg/dL all other times of the day. Blood CAPILLARY BLOOD / Unknown 10/08/2024 12:05 AM EST 10/08/2024 12:05 AM EST Hayley Torres MD POINT OF CARE TEST O RDERABLES [facility] [place] [address] * POC, GLUCOSE (10/07/2024 8:29 PM EST) Glucometer, POC 107 65 - 199 mg/dL 10/07/2024 8:30 PM EST [facility] Comment:Supplemental ranges: <140 mg/dL before meals <180 mg/dL all other times of the day. Blood CAPILLARY BLOOD / Unknown 10/07/2024 8:29 PM EST 10/07/2024 8:30 PM EST Hayley Torres MD POINT OF CARE TEST O GILDA Performing Organization Address City/[facility] Co de Phone Number [facility] [place] [address] * POC, GLUCOSE (10/07/2024 4:33 PM EST) Glucometer, POC 129 65 - 199 mg/dL 10/07/2024 4:33 PM EST [facility] Comment:Supplemental ranges: <140 mg/dL before meals <180 mg/dL all other times of the day. Blood CAPILLARY BLOOD / Unknown 10/07/2024 4:33 PM EST 10/07/2024 4:34 PM EST Hayley Torres MD POINT OF CARE TEST O GILDA Performing Organization Address [facility] Co de Phone Number [facility] [place] [address] * (ABNORMAL) POC, GLUCOSE (10/07/2024 10:58 AM EST) Glucometer, POC 221(H) 65 - 199 mg/dL 10/07/2024 10:59 AM EST [facility] Comment:Supplemental ranges: <140 mg/dL before meals <180 mg/dL all other times of the day. Blood CAPILLARY BLOOD / Unknown 10/07/2024 10:58 AM EST 10/07/2024 10:59 AM EST Hayley Torres MD POINT OF CARE TEST O GILDA Performing Organization Address City/[facility]/ZIP Co de Phone Number [facility] [place] [address] * (ABNORMAL) POC, GLUCOSE (10/07/2024 7:42 AM EST) Glucometer, POC 201(H) 65 - 199 mg/dL 10/07/2024 7:42 AM EST [facility] Comment:Supplemental ranges: <140 mg/dL before meals <180 mg/dL all other times of the day. Blood CAPILLARY BLOOD / Unknown 10/07/2024 7:42 AM EST 10/07/2024 7:43 AM EST Hayley Torers MD POINT OF CARE TEST O GILDA Performing Organization Address City/[facility]/ZIP Co de Phone Number [facility] [place] [address] * POC, GLUCOSE (10/07/2024 3:58 AM EST) Glucometer, POC 150 65 - 199 mg/dL 10/07/2024 3:58 AM EST [facility] Comment:Supplemental ranges: <140 mg/dL before meals <180 mg/dL all other times of the day. Blood CAPILLARY BLOOD / Unknown 10/07/2024 3:58 AM EST 10/07/2024 3:58 AM EST Hayley Torres MD POINT OF CARE TEST O GILDA Performing Organization Address City/[facility]/ZIP Co de Phone Number [facility] [place] [address] * (ABNORMAL) CBC (with Diff) (10/07/2024 12:06 AM EST) White Blood Cell 11.27(H) 4.00 - 9.50 x10(3)/mc L 10/07/2024 12:19 AM EST [facility] Red Blood Cell 3.47(L) 4.58 - 5.54 x10(6)/mc L 10/07/2024 12:19 AM EST [facility] Hemoglobin 10.1(L) 13.7 - 16.5 g/dL 10/07/2024 12:19 AM [facility] Hematocrit 30.9(L) 40.5 - 48.5 % 10/07/2024 12:19 AM [facility] Mean Cell Volume 89.0 82.9 - 93.1 fL 10/07/2024 12:19 AM [facility] Mean Cell Hemoglobin 29.1 27.5 - 32.1 pg 10/07/2024 12:19 AM [facility] Mean Cell Hemoglobin Concentration 32.7 32.0 - 35.7 g/dL 10/07/2024 12:19 AM [facility] Platelet 789(H) 145 - 357 x10(3)/mc L 10/07/2024 12:19 AM [facility] Mean Platelet Volume 9.0 7.6 - 12.9 fL 10/07/2024 12:19 AM [facility] RDW Standard Deviation 45.7(H) 36.0 - 45.0 fL 10/07/2024 12:19 AM [facility] RDW coefficient of variation 14.3(H) 11.4 - 13.8 % 10/07/2024 12:19 AM [facility] NRBC% auto 0.0 % 10/07/2024 12:19 AM [facility] NRBC Absolute <0.01 <0.01 x10(3)/mc L 10/07/2024 12:19 AM [facility] Neutrophil % 62.9 % 10/07/2024 12:19 AM [facility] Neutrophil Absolute (ANC) - Automated 7.09(H) 1.70 - 6.10 x10(3)/mc L 10/07/2024 12:19 AM [facility] Lymph % 28.3 % 10/07/2024 12:19 AM [facility] Lymph Absolute 3.19 0.90 - 3.20 x10(3)/mc L 10/07/2024 12:19 AM [facility] Monocyte % 5.7 % 10/07/2024 12:19 AM [facility] Monocyte Absolute 0.64 0.30 - 0.90 x10(3)/mc L 10/07/2024 12:19 AM [facility] Eos % 1.5 % 10/07/2024 12:19 AM [facility] Eos Absolute 0.17 0.00 - 0.40 x10(3)/mc L 10/07/2024 12:19 AM [facility] Basophil % 0.7 % 10/07/2024 12:19 AM [facility] Baso Absolute 0.08 0.00 - 0.10 x10(3)/mc L 10/07/2024 12:19 AM [facility] Immature Gran % 0.9 % 12:19 AM [facility] Immature Gran Absolute 0.10(H) 0.00 - 0.04 x10(3)/mc L 10/07/2024 12:19 AM [facility] Blood VENOUS BLOOD SPECIMEN / Unknown Venipuncture / Unknown 10/07/2024 12:06 AM EST 10/07/2024 12:11 AM EST Hayley Torres MD HEMATOLOGY ORDERABLE [facility] [place] [address] * (ABNORMAL) Basic Metabolic Panel (10/07/2024 12:06 AM EST) Glucose 145 65 - 199 mg/dL 10/07/2024 12:40 AM [facility] Comment:Glucose Concentratio n >=200 mg/dL plus symptoms is consistent with Diabetes Mellitus. Blood Urea Nitrogen 18 10 - 20 mg/dL 10/07/2024 12:40 AM [facility] Creatinine 0.61(L) 0.80 - 1.50 mg/dL 10/07/2024 12:40 AM [facility] Sodium 139 135 - 145 mMol/L 10/07/2024 12:40 AM [facility] Potassium 4.0 3.5 - 5.0 mMol/L 10/07/2024 12:40 AM [facility] Chloride 104 98 - 107 mMol/L 10/07/2024 12:40 AM [facility] Carbon Dioxide 25 22 - 31 mMol/L 10/07/2024 12:40 AM [facility] Anion Gap 10 5 - 15 mMol/L 10/07/2024 12:40 AM [facility] Calcium 9.0 8.5 - 10.5 mg/dL 10/07/2024 12:40 AM [facility] Est Glomerular Filtration Rate - Male 117 mL/min/1. 73 m?? 10/07/2024 12:40 AM [facility] Comment: This patient's estimated GFR [...] MD CHEMISTRY ORDERABLES [facility] [place] [address] * Phosphorus (10/07/2024 12:06 AM EST) Phosphorus 4.2 2.5 - 4.5 mg/dL 10/07/2024 12:40 AM [facility] Blood VENOUS BLOOD SPECIMEN / Unknown Venipuncture / Unknown 10/07/2024 12:06 AM EST 10/07/2024 12:11 AM EST Hayley Torres MD CHEMISTRY ORDERABLES Performing Organization Address City/[facility]/ZIP Co de Phone Number [facility] [place] [address] * Magnesium (10/07/2024 12:06 AM EST) Magnesium 0.85 0.69 - 1.07 mMol/L 10/07/2024 12:40 AM EST [facility] Blood VENOUS BLOOD SPECIMEN / Unknown Venipuncture / Unknown 10/07/2024 12:06 AM EST 10/07/2024 12:11 AM EST Hayley Torres MD CHEMISTRY ORDERABLES Performing Organization Address [facility]/ZIP Co de Phone Number [facility] [place] [address] * POC, GLUCOSE (10/07/2024 12:04 AM EST) Glucometer, POC 149 65 - 199 mg/dL 10/07/2024 12:04 AM EST [facility] Comment:Supplemental ranges: <140 mg/dL before meals <180 mg/dL all other times of the day. Blood CAPILLARY BLOOD / Unknown 10/07/2024 12:04 AM EST 10/07/2024 12:05 AM EST Hayley Torres MD POINT OF CARE TEST O RDERABLES Performing Organization Address City/[facility]/ZIP Co de Phone Number [facility] [place] [address] * POC, GLUCOSE (10/06/2024 7:24 PM EST) Glucometer, POC 151 65 - 199 mg/dL 10/06/2024 7:24 PM EST [facility] Comment:Supplemental ranges: <140 mg/dL before meals <180 mg/dL all other times of the day. Blood CAPILLARY BLOOD / Unknown 10/06/2024 7:24 PM EST 10/06/2024 7:24 PM EST Hayley Torres MD POINT OF CARE TEST O GILDA Performing Organization Address [facility] Co de Phone Number [facility] [place] [address] * POC, GLUCOSE (10/06/2024 5:32 PM EST) Glucometer, POC 126 65 - 199 mg/dL 10/06/2024 5:32 PM EST [facility] Comment:Supplemental ranges: <140 mg/dL before meals <180 mg/dL all other times of the day. Blood CAPILLARY BLOOD / Unknown 10/06/2024 5:32 PM EST 10/06/2024 5:32 PM EST Hayley Torres MD POINT OF CARE TEST O GILDA Performing Organization Address [facility] de Phone Number [facility] [place] [address] * XR PICC Placement Over 5 Years with Imaging Guidance (IV Team) (10/06/2024 3:04 PM EST) WORKSTATION ID [id number] DH RAD Anatomical Region Laterality Modality N/A [...] who have questions please contact the health health care specialist that requested your imaging first. ? Electronically signed by: Charles Hamilton MD, [facility] ??([phone]), at 10/06/2024 3:43 PM Narrative 10/06/2024 3:43 [...] patients who have questions please contactthe health health care specialist that requested your imaging first. Electronically signed by: Charles Hamilton MD, [facility]([phone]), at 10/06/2024 3:43 PM Hayley Torres MD IMG FLUORO ORDERABLE S * Place PICC Line: Contact Vascular Access Page [phone] Extremity to exclude: No restrictions; Is PICC [...] to the planned procedure. Hand Hygiene: The convention worker did perform hand hygiene prior to line insertion. Catheter type: PICC Lot number: [id number] Procedure Technique: Skin was prepped with chlorhexidine. [...] Dominique Holman RN 10/06/2024 Vibha C Marcelino COMPLAINT INVESTIGATIONS OFFICER PROCEDURE/MINOR GORE RGICAL ORDERABLES * POC, GLUCOSE [...] CARE TEST O RDERAHERNANDEZ Performing Organization Address City/[facility]/ZIP Co de Phone Number [facility] [place] [address] * (ABNORMAL) POC, GLUCOSE (10/06/2024 7:34 AM EST) Glucometer, POC 209(H) 65 - 199 mg/dL 10/06/2024 7:34 AM EST [facility] Comment:Supplemental ranges: <140 mg/dL before meals <180 mg/dL all other times of the day. Blood CAPILLARY BLOOD / Unknown 10/06/2024 7:34 AM EST 10/06/2024 7:34 AM EST Hayley Torres MD POINT OF CARE TEST O RDERAHERNANDEZ [facility] [place] [address] * POC, GLUCOSE (10/06/2024 3:29 AM EST) Glucometer, POC 151 65 - 199 mg/dL 10/06/2024 3:29 AM EST [facility] Comment:Supplemental ranges: <140 mg/dL before meals <180 mg/dL all other times of the day. Blood CAPILLARY BLOOD / Unknown 10/06/2024 3:29 AM EST 10/06/2024 3:29 AM EST Hayley Torers MD POINT OF CARE TEST O RDERABLES Performing Organization Address City/[facility]/ZIP Co de Phone Number [facility] [place] [address] * Vancomycin Level, Random (10/06/2024 12:03 AM EST) Pathologist [facility] Vancomycin, Random 20.5 mg/L 2023 9:00 AM EST [facility] Comment:This level is for de termination of the patient's vancomycin cofs-mvoql-nzt-curve (AUC) value. Contact the inpatient pharmacy for interpretation. Blood VENOUS BLOOD SPECIMEN / Unknown Venipuncture / Unknown 10/06/2024 12:03 AM EST 10/06/2024 12:15 AM EST Hayley Torres MD CHEMISTRY ORDERABLES Performing Organization Address City/[facility]/ZIP Co de Phone Number [facility] [place] [address] * (ABNORMAL) CBC (with Diff) (10/06/2024 12:03 AM EST) Pathologist [facility] White Blood Cell 12.26(H) 4.00 - 9.50 x10(3)/mc L 10/06/2024 12:19 AM [facility] Red Blood Cell 3.49(L) 4.58 - 5.54 x10(6)/mc L 10/06/2024 12:19 AM [facility] Hemoglobin 10.1(L) 13.7 - 16.5 g/dL 10/06/2024 12:19 AM [facility] Hematocrit 30.9(L) 40.5 - 48.5 % 10/06/2024 12:19 AM [facility] Mean Cell Volume 88.5 82.9 - 93.1 fL 10/06/2024 12:19 AM [facility] Mean Cell Hemoglobin 28.9 27.5 - 32.1 pg 10/06/2024 12:19 AM [facility] Mean Cell Hemoglobin Concentration 32.7 32.0 - 35.7 g/dL 10/06/2024 12:19 AM [facility] Platelet 772(H) 145 - 357 x10(3)/mc L 10/06/2024 12:19 AM [facility] Mean Platelet Volume 9.0 7.6 - 12.9 fL 10/06/2024 12:19 AM [facility] RDW Standard Deviation 46.0(H) 36.0 - 45.0 fL 10/06/2024 12:19 AM [facility] RDW coefficient of variation 14.5(H) 11.4 - 13.8 % 10/06/2024 12:19 AM [facility] NRBC% auto 0.0 % 10/06/2024 12:19 AM [facility] NRBC Absolute <0.01 <0.01 x10(3)/mc L 10/06/2024 12:19 AM [facility] Neutrophil % 66.7 % 10/06/2024 12:19 AM [facility] Neutrophil Absolute (ANC) - Automated 8.18(H) 1.70 - 6.10 x10(3)/mc L 10/06/2024 12:19 AM [facility] Lymph % 24.1 % 10/06/2024 12:19 AM [facility] Lymph Absolute 2.95 0.90 - 3.20 x10(3)/mc L 10/06/2024 12:19 AM [facility] Monocyte % 6.2 % 10/06/2024 12:19 AM [facility] Monocyte Absolute 0.76 0.30 - 0.90 x10(3)/mc L 10/06/2024 12:19 AM [facility] Eos % 1.3 % 10/06/2024 12:19 AM [facility] Eos Absolute 0.16 0.00 - 0.40 x10(3)/mc L 10/06/2024 12:19 AM [facility] Basophil % 0.5 % 10/06/2024 12:19 AM [facility] Baso Absolute 0.06 0.00 - 0.10 x10(3)/mc L 10/06/2024 12:19 AM [facility] Immature Gran % 1.2 % 12:19 AM [facility] Immature Gran Absolute 0.15(H) 0.00 - 0.04 x10(3)/mc L 10/06/2024 12:19 AM [facility] Blood VENOUS BLOOD SPECIMEN / Unknown Venipuncture / Unknown 10/06/2024 12:03 AM EST 10/06/2024 12:15 AM EST Hayley Torres MD HEMATOLOGY ORDERABLE S [facility] [place] [address] * Basic Metabolic Panel (10/06/2024 12:03 AM EST) Glucose 94 65 - 199 mg/dL 10/06/2024 12:44 AM [facility] Comment:Glucose Concentratio n >=200 mg/dL plus symptoms is consistent with Diabetes Mellitus. Blood Urea Nitrogen 17 10 - 20 mg/dL 10/06/2024 12:44 AM [facility] Creatinine 0.85 0.80 - 1.50 mg/dL 10/06/2024 12:44 AM [facility] Sodium 139 135 - 145 mMol/L 10/06/2024 12:44 AM [facility] Potassium 4.3 3.5 - 5.0 mMol/L 10/06/2024 12:44 AM [facility] Chloride 103 98 - 107 mMol/L 10/06/2024 12:44 AM [facility] Carbon Dioxide 22 22 - 31 mMol/L 10/06/2024 12:44 AM [facility] Anion Gap 14 5 - 15 mMol/L 10/06/2024 12:44 AM [facility] Calcium 8.8 8.5 - 10.5 mg/dL 10/06/2024 12:44 AM EST [facility] Est Glomerular Filtration Rate - Male 106 mL/min/1. 73 m?? 10/06/2024 12:44 AM [facility] Comment: This patient's estimated GFR [...] MD CHEMISTRY ORDERABLES [facility] [place] [address] * Phosphorus (10/06/2024 12:03 AM EST) Phosphorus 4.3 2.5 - 4.5 mg/dL 10/06/2024 12:44 AM EST [facility] Blood VENOUS BLOOD SPECIMEN / Unknown Venipuncture / Unknown 10/06/2024 12:03 AM EST 10/06/2024 12:15 AM EST Hayley Torres MD CHEMISTRY ORDERABLES [facility] [place] [address] * Magnesium (10/06/2024 12:03 AM EST) Magnesium 0.83 0.69 - 1.07 mMol/L 10/06/2024 12:44 AM EST [facility] Blood VENOUS BLOOD SPECIMEN / Unknown Venipuncture / Unknown 10/06/2024 12:03 AM EST 10/06/2024 12:15 AM EST Hayley Torres MD CHEMISTRY ORDERABLES Performing Organization Address City/[facility]/ZIP Co de Phone Number [facility] [place] [address] * POC, GLUCOSE (10/06/2024 12:02 AM EST) Glucometer, POC 98 65 - 199 mg/dL 10/06/2024 12:02 AM EST [facility] Comment:Supplemental ranges: <140 mg/dL before meals <180 mg/dL all other times of the day. Blood CAPILLARY BLOOD / Unknown 10/06/2024 12:02 AM EST 10/06/2024 12:02 AM EST Hayley Torres MD POINT OF CARE TEST O RDERABLES Performing Organization Address City/[facility]/ZIP Co de Phone Number [facility] [place] [address] * POC, GLUCOSE (10/05/2024 7:22 PM EST) Glucometer, POC 186 65 - 199 mg/dL 10/05/2024 7:23 PM EST [facility] Comment:Supplemental ranges: <140 mg/dL before meals <180 mg/dL all other times of the day. Blood CAPILLARY BLOOD / Unknown 10/05/2024 7:22 PM EST 10/05/2024 7:23 PM EST Hayley Torres MD POINT OF CARE TEST O RDERABLES Performing Organization Address City/[facility]/ZIP Co de Phone Number [facility] [place] [address] * POC, GLUCOSE (10/05/2024 5:35 PM EST) Glucometer, POC 177 65 - 199 mg/dL 10/05/2024 5:35 PM EST [facility] Comment:Supplemental ranges: <140 mg/dL before meals <180 mg/dL all other times of the day. Blood CAPILLARY BLOOD / Unknown 10/05/2024 5:35 PM EST 10/05/2024 5:35 PM EST Hayley Torres MD POINT OF CARE TEST O GILDA Performing Organization Address City/[facility] Co de Phone Number [facility] [place] [address] * POC, GLUCOSE (10/05/2024 3:57 PM EST) Glucometer, POC 141 65 - 199 mg/dL 10/05/2024 3:57 PM EST [facility] Comment:Supplemental ranges: <140 mg/dL before meals <180 mg/dL all other times of the day. Blood CAPILLARY BLOOD / Unknown 10/05/2024 3:57 PM EST 10/05/2024 3:57 PM EST Hayley Torres MD POINT OF CARE TEST O GILDA Performing Organization Address [facility] Co de Phone Number [facility] [place] [address] * POC, GLUCOSE (10/05/2024 11:50 AM EST) Glucometer, POC 134 65 - 199 mg/dL 10/05/2024 11:50 AM EST [facility] Comment:Supplemental ranges: <140 mg/dL before meals <180 mg/dL all other times of the day. Blood CAPILLARY BLOOD / Unknown 10/05/2024 11:50 AM EST 10/05/2024 11:50 AM EST Hayley Torres MD POINT OF CARE TEST O GILDA Performing Organization Address City/[facility] Co de Phone Number [facility] [place] [address] * POC, GLUCOSE (10/05/2024 7:51 AM EST) Glucometer, POC 114 65 - 199 mg/dL 10/05/2024 7:51 AM EST [facility] Comment:Supplemental ranges: <140 mg/dL before meals <180 mg/dL all other times of the day. Blood CAPILLARY BLOOD / Unknown 10/05/2024 7:51 AM EST 10/05/2024 7:51 AM EST Hayley Torres MD POINT OF CARE TEST O GILDA Performing Organization Address City/[facility]/ZIP Co de Phone Number [facility] [place] [address] * POC, GLUCOSE (10/05/2024 4:18 AM EST) Glucometer, POC 147 65 - 199 mg/dL 10/05/2024 4:18 AM EST [facility] Comment:Supplemental ranges: <140 mg/dL before meals <180 mg/dL all other times of the day. Blood CAPILLARY BLOOD / Unknown 10/05/2024 4:18 AM EST 10/05/2024 4:18 AM EST Hayley Torres MD POINT OF CARE TEST O GILDA Performing Organization Address City/[facility]/ZIP Co de Phone Number [facility] [place] [address] * (ABNORMAL) CBC (with Diff) (10/04/2024 11:50 PM EST) White Blood Cell 12.73(H) 4.00 - 9.50 x10(3)/mc L 10/05/2024 12:10 AM EST [facility] Red Blood Cell 3.45(L) 4.58 - 5.54 x10(6)/mc L 10/05/2024 12:10 AM EST [facility] Hemoglobin 9.8(L) 13.7 - 16.5 g/dL 10/05/2024 12:10 AM EST [facility] Hematocrit 30.6(L) 40.5 - 48.5 % 10/05/2024 12:10 AM [facility] Mean Cell Volume 88.7 82.9 - 93.1 fL 10/05/2024 12:10 AM [facility] Mean Cell Hemoglobin 28.4 27.5 - 32.1 pg 10/05/2024 12:10 AM [facility] Mean Cell Hemoglobin Concentration 32.0 32.0 - 35.7 g/dL 10/05/2024 12:10 AM [facility] Platelet 709(H) 145 - 357 x10(3)/mc L 10/05/2024 12:10 AM [facility] Mean Platelet Volume 8.9 7.6 - 12.9 fL 10/05/2024 12:10 AM [facility] RDW Standard Deviation 45.4(H) 36.0 - 45.0 fL 10/05/2024 12:10 AM [facility] RDW coefficient of variation 14.3(H) 11.4 - 13.8 % 10/05/2024 12:10 AM [facility] NRBC% auto 0.0 % 10/05/2024 12:10 AM [facility] NRBC Absolute <0.01 <0.01 x10(3)/mc L 10/05/2024 12:10 AM [facility] Neutrophil % 68.5 % 10/05/2024 12:10 AM [facility] Neutrophil Absolute (ANC) - Automated 8.72(H) 1.70 - 6.10 x10(3)/mc L 10/05/2024 12:10 AM [facility] Lymph % 21.3 % 10/05/2024 12:10 AM [facility] Lymph Absolute 2.71 0.90 - 3.20 x10(3)/mc L 10/05/2024 12:10 AM [facility] Monocyte % 5.5 % 10/05/2024 12:10 AM [facility] Monocyte Absolute 0.70 0.30 - 0.90 x10(3)/mc L 10/05/2024 12:10 AM EST [facility] Eos % 1.6 % 10/05/2024 12:10 AM [facility] Eos Absolute 0.20 0.00 - 0.40 x10(3)/mc L 10/05/2024 12:10 AM [facility] Basophil % 0.5 % 10/05/2024 12:10 AM [facility] Baso Absolute 0.07 0.00 - 0.10 x10(3)/mc L 10/05/2024 12:10 AM [facility] Immature Gran % 2.6 % 12:10 AM [facility] Immature Gran Absolute 0.33(H) 0.00 - 0.04 x10(3)/mc L 10/05/2024 12:10 AM [facility] Blood VENOUS BLOOD SPECIMEN / Unknown Venipuncture / Unknown 10/04/2024 11:50 PM EST 10/05/2024 12:03 AM EST Hayley Torres MD HEMATOLOGY ORDERABLE S [facility] [place] [address] * (ABNORMAL) Basic Metabolic Panel (10/04/2024 11:50 PM EST) Glucose 104 65 - 199 mg/dL 10/05/2024 12:35 AM [facility] Comment:Glucose Concentratio n >=200 mg/dL plus symptoms is consistent with Diabetes Mellitus. Blood Urea Nitrogen 13 10 - 20 mg/dL 10/05/2024 12:35 AM [facility] Creatinine 0.55(L) 0.80 - 1.50 mg/dL 10/05/2024 12:35 AM [facility] Sodium 140 135 - 145 mMol/L 10/05/2024 12:35 AM [facility] Potassium 3.9 3.5 - 5.0 mMol/L 10/05/2024 12:35 AM [facility] Chloride 105 98 - 107 mMol/L 10/05/2024 12:35 AM [facility] Carbon Dioxide 24 22 - 31 mMol/L 10/05/2024 12:35 AM [facility] Anion Gap 11 5 - 15 mMol/L 10/05/2024 12:35 AM [facility] Calcium 9.0 8.5 - 10.5 mg/dL 10/05/2024 12:35 AM [facility] Est Glomerular Filtration Rate - Male 121 mL/min/1. 73 m?? 10/05/2024 12:35 AM [facility] Comment: This patient's estimated GFR [...] MD CHEMISTRY ORDERABLES [facility] [place] [address] * Phosphorus (10/04/2024 11:50 PM EST) Phosphorus 4.2 2.5 - 4.5 mg/dL 10/05/2024 12:35 AM [facility] Blood VENOUS BLOOD SPECIMEN / Unknown Venipuncture / Unknown 10/04/2024 11:50 PM EST 10/05/2024 12:03 AM EST Hayley Torres MD CHEMISTRY ORDERABLES Performing Organization Address [facility] Co de Phone Number [facility] [place] [address] * Magnesium (10/04/2024 11:50 PM EST) Magnesium 0.89 0.69 - 1.07 mMol/L 10/05/2024 12:35 AM EST [facility] Blood VENOUS BLOOD SPECIMEN / Unknown Venipuncture / Unknown 10/04/2024 11:50 PM EST 10/05/2024 12:03 AM EST Hayley Torres MD CHEMISTRY ORDERABLES Performing Organization Address [facility] Co de Phone Number [facility] [place] [address] * POC, GLUCOSE (10/04/2024 11:36 PM EST) Glucometer, POC 121 65 - 199 mg/dL 10/04/2024 11:36 PM EST [facility] Comment:Supplemental ranges: <140 mg/dL before meals <180 mg/dL all other times of the day. Blood CAPILLARY BLOOD / Unknown 10/04/2024 11:36 PM EST 10/04/2024 11:36 PM EST Hayley Torres MD POINT OF CARE TEST O RDERABLES Performing Organization Address City/[facility] Co de Phone Number [facility] [place] [address] * POC, GLUCOSE (10/04/2024 7:32 PM EST) [...] RDERABLES Performing Organization Address [facility] Co de Phone Number [facility] [place] [address] * EKG 12 Lead (10/04/2024 7:14 PM EST) Ventricular rate 81 BPM MUSE SYSTEM Atrial Rate 81 BPM MUSE SYSTEM P-R Interval 174 ms MUSE SYSTEM QRS Duration 112 ms MUSE SYSTEM Q-T Interval 422 ms MUSE SYSTEM QTC Calculated (Bezet) 490 ms MUSE SYSTEM Calculated P [place] 34 degrees MUSE SYSTEM Calculated R [place] 11 degrees MUSE SYSTEM Calculated T [place] 59 degrees MUSE SYSTEM INTERPRETATION Normal sinus rhythm Cannot rule out Inferior infarct , age undetermined Nonspecific T wave abnormality Borderline ECG When compared with ECG of 29-MAY-2024 14:51, Nonspecific T wave abnormality now evident in Lateral leads Confirmed by MD Robert, Deandre Guadarrama ([id number]) on 10/05/2024 3:35:42 PM MUSE SYSTEM 10/04/2024 7:14 PM EST 10/05/2024 3:35 PM EST Hayley Torres MD ECG ORDERABLES Performing Organization Address [facility] de Phone Number [...] CARE TEST O RDERABLES Performing Organization Address City/[facility]/ZIP Co de Phone Number [facility] [place] [address] * POC, GLUCOSE (10/04/2024 4:49 PM EST) Glucometer, POC 70 65 - 199 mg/dL 10/04/2024 4:50 PM EST [facility] Comment:Supplemental ranges: <140 mg/dL before meals <180 mg/dL all other times of the day. Blood CAPILLARY BLOOD / Unknown 10/04/2024 4:49 PM EST 10/04/2024 4:50 PM EST Hayley Torres MD POINT OF CARE TEST O RDERABLES Performing Organization Address City/[facility]/ZIP Co de Phone Number [facility] [place] [address] * POC, GLUCOSE (10/04/2024 11:49 AM EST) [...] RDERABLES Performing Organization Address [facility] Co de Phone Number [facility] [place] [address] * Vancomycin, trough (10/04/2024 7:53 AM EST) Vancomycin, Trough 19.8 10.0 - 20.0 mg/L 10/04/2024 9:16 AM EST [facility] Comment: Varies according to infection source. Blood VENOUS BLOOD SPECIMEN / Unknown Venipuncture / Unknown 10/04/2024 7:53 AM EST 10/04/2024 8:11 AM EST Hayley Torres MD CHEMISTRY ORDERABLES [facility] [place] [address] * POC, GLUCOSE (10/04/2024 7:51 AM EST) Glucometer, POC 105 65 - 199 mg/dL 10/04/2024 7:52 AM EST [facility] Comment:Supplemental ranges: <140 mg/dL before meals <180 mg/dL all other times of the day. Blood CAPILLARY BLOOD / Unknown 10/04/2024 7:51 AM EST 10/04/2024 7:52 AM EST Hayley Torres MD POINT OF CARE TEST O GILDA Performing Organization Address City/[facility]/ZIP Co de Phone Number [facility] [place] [address] * POC, GLUCOSE (10/04/2024 3:53 AM EST) Glucometer, POC 90 65 - 199 mg/dL 10/04/2024 3:53 AM EST [facility] Comment:Supplemental ranges: <140 mg/dL before meals <180 mg/dL all other times of the day. Blood CAPILLARY BLOOD / Unknown 10/04/2024 3:53 AM EST 10/04/2024 3:53 AM EST Hayley Torres MD POINT OF CARE TEST O GILDA Performing Organization Address City/[facility]/ZIP Co de Phone Number [facility] [place] [address] * (ABNORMAL) CBC (with Diff) (10/04/2024 12:08 AM EST) White Blood Cell 12.58(H) 4.00 - 9.50 x10(3)/mc L 10/04/2024 12:51 AM EST [facility] Red Blood Cell 3.28(L) 4.58 - 5.54 x10(6)/mc L 10/04/2024 12:51 AM EST [facility] Hemoglobin 9.4(L) 13.7 - 16.5 g/dL 10/04/2024 12:51 AM [facility] Hematocrit 28.8(L) 40.5 - 48.5 % 10/04/2024 12:51 AM [facility] Mean Cell Volume 87.8 82.9 - 93.1 fL 10/04/2024 12:51 AM THE [facility] Mean Cell Hemoglobin 28.7 27.5 - 32.1 pg 10/04/2024 12:51 AM [facility] Mean Cell Hemoglobin Concentration 32.6 32.0 - 35.7 g/dL 10/04/2024 12:51 AM [facility] Platelet 670(H) 145 - 357 x10(3)/mc L 10/04/2024 12:51 AM [facility] Mean Platelet Volume 9.1 7.6 - 12.9 fL 10/04/2024 12:51 AM [facility] RDW Standard Deviation 44.8 36.0 - 45.0 fL 10/04/2024 12:51 AM [facility] RDW coefficient of variation 13.9(H) 11.4 - 13.8 % 10/04/2024 12:51 AM [facility] NRBC% auto 0.0 % 10/04/2024 12:51 AM [facility] NRBC Absolute <0.01 <0.01 x10(3)/mc L 10/04/2024 12:51 AM [facility] Neutrophil % 60.3 % 10/04/2024 12:51 AM [facility] Neutrophil Absolute (ANC) - Automated 7.57(H) 1.70 - 6.10 x10(3)/mc L 10/04/2024 12:51 AM [facility] Lymph % 27.4 % 10/04/2024 12:51 AM [facility] Lymph Absolute 3.45(H) 0.90 - 3.20 x10(3)/mc L 10/04/2024 12:51 AM EST [facility] Monocyte % 5.4 % 10/04/2024 12:51 AM EST [facility] Monocyte Absolute 0.68 0.30 - 0.90 x10(3)/mc L 10/04/2024 12:51 AM EST [facility] Eos % 1.5 % 10/04/2024 12:51 AM [facility] Eos Absolute 0.19 0.00 - 0.40 x10(3)/mc L 10/04/2024 12:51 AM EST [facility] Basophil % 0.6 % 10/04/2024 12:51 AM [facility] Baso Absolute 0.08 0.00 - 0.10 x10(3)/mc L 10/04/2024 12:51 AM [facility] Immature Gran % 4.8 % 12:51 AM [facility] Immature Gran Absolute 0.61(H) 0.00 - 0.04 x10(3)/mc L 10/04/2024 12:51 AM [facility] Blood VENOUS BLOOD SPECIMEN / Unknown Venipuncture / Unknown 10/04/2024 12:08 AM EST 10/04/2024 12:15 AM EST Hayley Torres MD HEMATOLOGY ORDERABLE S [facility] [place] [address] * (ABNORMAL) Basic Metabolic Panel (10/04/2024 12:08 AM EST) Glucose 135 65 - 199 mg/dL 10/04/2024 12:53 AM EST [facility] Comment:Glucose Concentratio n >=200 mg/dL plus symptoms is consistent with Diabetes Mellitus. Blood Urea Nitrogen 19 10 - 20 mg/dL 10/04/2024 12:53 AM [facility] Creatinine 0.56(L) 0.80 - 1.50 mg/dL 10/04/2024 12:53 AM [facility] Sodium 138 135 - 145 mMol/L 10/04/2024 12:53 AM [facility] Potassium 4.4 3.5 - 5.0 mMol/L 10/04/2024 12:53 AM [facility] Chloride 105 98 - 107 mMol/L 10/04/2024 12:53 AM [facility] Carbon Dioxide 24 22 - 31 mMol/L 10/04/2024 12:53 AM [facility] Anion Gap 9 5 - 15 mMol/L 10/04/2024 12:53 AM [facility] Calcium 8.7 8.5 - 10.5 mg/dL 10/04/2024 12:53 AM [facility] Est Glomerular Filtration Rate - Male 120 mL/min/1. 73 m?? 10/04/2024 12:53 AM [facility] Comment: This patient's estimated GFR [...] MD CHEMISTRY ORDERABLES [facility] [place] [address] * Phosphorus (10/04/2024 12:08 AM EST) Phosphorus 3.7 2.5 - 4.5 mg/dL 10/04/2024 12:53 AM EST [facility] Blood VENOUS BLOOD SPECIMEN / Unknown Venipuncture / Unknown 10/04/2024 12:08 AM EST 10/04/2024 12:15 AM EST Hayley Torres MD CHEMISTRY ORDERABLES Performing Organization Address City/[facility]/ZIP Co de Phone Number [facility] [place] [address] * Magnesium (10/04/2024 12:08 AM EST) Magnesium 0.89 0.69 - 1.07 mMol/L 10/04/2024 12:53 AM EST [facility] Blood VENOUS BLOOD SPECIMEN / Unknown Venipuncture / Unknown 10/04/2024 12:08 AM EST 10/04/2024 12:15 AM EST Hayley Torres MD CHEMISTRY ORDERABLES Performing Organization Address [facility]/ZIP Co de Phone Number [facility] [place] [address] * POC, GLUCOSE (10/04/2024 12:01 AM EST) Glucometer, POC 132 65 - 199 mg/dL 10/04/2024 12:02 AM EST [facility] Comment:Supplemental ranges: <140 mg/dL before meals <180 mg/dL all other times of the day. Blood CAPILLARY BLOOD / Unknown 10/04/2024 12:01 AM EST 10/04/2024 12:02 AM EST Hayley Torres MD POINT OF CARE TEST O RDERABLES Performing Organization Address City/[facility]/ZIP Co de Phone Number [facility] [place] [address] * POC, GLUCOSE (10/03/2024 7:56 PM EST) Glucometer, POC 123 65 - 199 mg/dL 10/03/2024 7:56 PM EST [facility] Comment:Supplemental ranges: <140 mg/dL before meals <180 mg/dL all other times of the day. Blood CAPILLARY BLOOD / Unknown 10/03/2024 7:56 PM EST 10/03/2024 7:57 PM EST Hayley Torres MD POINT OF CARE TEST O GILDA [facility] [place] [address] * POC, GLUCOSE (10/03/2024 5:29 PM EST) Glucometer, POC 182 65 - 199 mg/dL 10/03/2024 5:30 PM EST [facility] Comment:Supplemental ranges: <140 mg/dL before meals <180 mg/dL all other times of the day. Blood CAPILLARY BLOOD / Unknown 10/03/2024 5:29 PM EST 10/03/2024 5:30 PM EST Hayley Torres MD POINT OF CARE TEST O GILDA Performing Organization Address City/[facility]/ZIP Co de Phone Number [facility] [place] [address] * POC, GLUCOSE (10/03/2024 12:54 PM EST) Glucometer, POC 128 65 - 199 mg/dL 10/03/2024 12:54 PM EST [facility] Comment:Supplemental ranges: <140 mg/dL before meals <180 mg/dL all other times of the day. Blood CAPILLARY BLOOD / Unknown 10/03/2024 12:54 PM EST 10/03/2024 12:54 PM EST Hayley Torres MD POINT OF CARE TEST O GILDA [facility] [place] [address] * POC, GLUCOSE (10/03/2024 7:59 AM EST) Glucometer, POC 115 65 - 199 mg/dL 10/03/2024 7:59 AM EST [facility] Comment:Supplemental ranges: <140 mg/dL before meals <180 mg/dL all other times of the day. Blood CAPILLARY BLOOD / Unknown 10/03/2024 7:59 AM EST 10/03/2024 7:59 AM EST Hayley Torres MD POINT OF CARE TEST O GILDA Performing Organization Address City/[facility] Co de Phone Number [facility] [place] [address] * POC, GLUCOSE (10/03/2024 5:32 AM EST) Glucometer, POC 119 65 - 199 mg/dL 10/03/2024 5:32 AM EST [facility] Comment:Supplemental ranges: <140 mg/dL before meals <180 mg/dL all other times of the day. Blood CAPILLARY BLOOD / Unknown 10/03/2024 5:32 AM EST 10/03/2024 5:32 AM EST Hayley Torres MD POINT OF CARE TEST O GILDA Performing Organization Address [facility] Co de Phone Number [facility] [place] [address] * POC, GLUCOSE (10/03/2024 4:16 AM EST) Glucometer, POC 152 65 - 199 mg/dL 10/03/2024 4:17 AM EST [facility] Comment:Supplemental ranges: <140 mg/dL before meals <180 mg/dL all other times of the day. Blood CAPILLARY BLOOD / Unknown 10/03/2024 4:16 AM EST 10/03/2024 4:17 AM EST Hayley Torres MD POINT OF CARE TEST O GILDA Performing Organization Address City/[facility]/ZIP Co de Phone Number [facility] [place] [address] * (ABNORMAL) POC, GLUCOSE (10/03/2024 2:02 AM EST) Glucometer, POC 225(H) 65 - 199 mg/dL 10/03/2024 2:02 AM EST [facility] Comment:Supplemental ranges: <140 mg/dL before meals <180 mg/dL all other times of the day. Blood CAPILLARY BLOOD / Unknown 10/03/2024 2:02 AM EST 10/03/2024 2:02 AM EST Hayley Torres MD POINT OF CARE TEST O RDERABLES [facility] [place] [address] * (ABNORMAL) CBC (with Diff) (10/03/2024 12:27 AM EST) Pathologist [facility] White Blood Cell 15.33(H) 4.00 - 9.50 x10(3)/mc L 10/03/2024 12:51 AM [facility] Red Blood Cell 3.59(L) 4.58 - 5.54 x10(6)/mc L 10/03/2024 12:51 AM [facility] Hemoglobin 10.4(L) 13.7 - 16.5 g/dL 10/03/2024 12:51 AM [facility] Hematocrit 31.2(L) 40.5 - 48.5 % 10/03/2024 12:51 AM [facility] Mean Cell Volume 86.9 82.9 - 93.1 fL 10/03/2024 12:51 AM [facility] Mean Cell Hemoglobin 29.0 27.5 - 32.1 pg 10/03/2024 12:51 AM [facility] Mean Cell Hemoglobin Concentration 33.3 32.0 - 35.7 g/dL 10/03/2024 12:51 AM [facility] Platelet 693(H) 145 - 357 x10(3)/mc L 10/03/2024 12:51 AM [facility] Mean Platelet Volume 9.2 7.6 - 12.9 fL 10/03/2024 12:51 AM [facility] RDW Standard Deviation 42.4 36.0 - 45.0 fL 10/03/2024 12:51 AM [facility] RDW coefficient of variation 13.6 11.4 - 13.8 % 10/03/2024 12:51 AM [facility] NRBC% auto 0.0 % 10/03/2024 12:51 AM [facility] NRBC Absolute <0.01 <0.01 x10(3)/mc L 10/03/2024 12:51 AM [facility] Neutrophil % 77.1 % 10/03/2024 12:51 AM [facility] Neutrophil Absolute (ANC) - Automated 11.83(H) 1.70 - 6.10 x10(3)/mc L 10/03/2024 12:51 AM [facility] Lymph % 13.4 % 10/03/2024 12:51 AM [facility] Lymph Absolute 2.05 0.90 - 3.20 x10(3)/mc L 10/03/2024 12:51 AM [facility] Monocyte % 2.9 % 10/03/2024 12:51 AM [facility] Monocyte Absolute 0.45 0.30 - 0.90 x10(3)/mc L 10/03/2024 12:51 AM [facility] Eos % 0.5 % 10/03/2024 12:51 AM [facility] Eos Absolute 0.07 0.00 - 0.40 x10(3)/mc L 10/03/2024 12:51 AM [facility] Basophil % 0.4 % 10/03/2024 12:51 AM [facility] Baso Absolute 0.06 0.00 - 0.10 x10(3)/mc L 10/03/2024 12:51 AM [facility] Immature Gran % 5.7 % 12:51 AM [facility] Immature Gran Absolute 0.87(H) 0.00 - 0.04 x10(3)/mc L 10/03/2024 12:51 AM [facility] Blood VENOUS BLOOD SPECIMEN / Unknown Venipuncture / Unknown 10/03/2024 12:27 AM EST 10/03/2024 12:47 AM EST Hayley Torres MD HEMATOLOGY ORDERABLE S [facility] [place] [address] * (ABNORMAL) Basic Metabolic Panel (10/03/2024 12:27 AM EST) Glucose 208(H) 65 - 199 mg/dL 10/03/2024 1:14 AM [facility] Comment:Glucose Concentratio n >=200 mg/dL plus symptoms is consistent with Diabetes Mellitus. Blood Urea Nitrogen 15 10 - 20 mg/dL 10/03/2024 1:14 AM [facility] Creatinine 0.51(L) 0.80 - 1.50 mg/dL 10/03/2024 1:14 AM [facility] Sodium 136 135 - 145 mMol/L 10/03/2024 1:14 AM [facility] Potassium 4.1 3.5 - 5.0 mMol/L 10/03/2024 1:14 AM [facility] Chloride 103 98 - 107 mMol/L 10/03/2024 1:14 AM [facility] Carbon Dioxide 20(L) 22 - 31 mMol/L 10/03/2024 1:14 AM [facility] Anion Gap 13 5 - 15 mMol/L 10/03/2024 1:14 AM [facility] Calcium 8.4(L) 8.5 - 10.5 mg/dL 10/03/2024 1:14 AM [facility] Est Glomerular Filtration Rate - [...] Torres MD CHEMISTRY ORDERABLES Performing Organization Address City/[facility]/ZIP Co de Phone Number [facility] [place] [address] * Phosphorus (10/03/2024 12:27 AM EST) Phosphorus 3.5 2.5 - 4.5 mg/dL 10/03/2024 1:14 AM EST [facility] Blood VENOUS BLOOD SPECIMEN / Unknown Venipuncture / Unknown 10/03/2024 12:27 AM EST 10/03/2024 12:47 AM EST Hayley Torres MD CHEMISTRY ORDERABLES [facility] [place] [address] * Magnesium (10/03/2024 12:27 AM EST) Magnesium 0.83 0.69 - 1.07 mMol/L 10/03/2024 1:14 AM EST [facility] Blood VENOUS BLOOD SPECIMEN / Unknown Venipuncture / Unknown 10/03/2024 12:27 AM EST 10/03/2024 12:47 AM EST Hayley Torres MD CHEMISTRY ORDERABLES Performing Organization Address [facility] Co de Phone Number [facility] [place] [address] * (ABNORMAL) POC, GLUCOSE (10/03/2024 12:13 AM [...] RDERABLES Performing Organization Address [facility] Co de Phone Number [facility] [place] [address] * POC, GLUCOSE (10/02/2024 8:17 PM EST) Glucometer, POC 177 65 - 199 mg/dL 10/02/2024 8:17 PM EST [facility] Comment:Supplemental ranges: <140 mg/dL before meals <180 mg/dL all other times of the day. Blood CAPILLARY BLOOD / Unknown 10/02/2024 8:17 PM EST 10/02/2024 8:17 PM EST Hayley Torres MD POINT OF CARE TEST O GILDA Performing Organization Address City/[facility]/ZIP Co de Phone Number [facility] [place] [address] * POC, GLUCOSE (10/02/2024 6:22 PM EST) Glucometer, POC 172 65 - 199 mg/dL 10/02/2024 6:22 PM EST [facility] Comment:Supplemental ranges: <140 mg/dL before meals <180 mg/dL all other times of the day. Blood CAPILLARY BLOOD / Unknown 10/02/2024 6:22 PM EST 10/02/2024 6:22 PM EST Hayley Torres MD POINT OF CARE TEST O GILDA Performing Organization Address City/[facility]/ZIP Co de Phone Number [facility] [place] [address] * POC, GLUCOSE (10/02/2024 5:01 PM EST) Glucometer, POC 104 65 - 199 mg/dL 10/02/2024 5:01 PM EST [facility] Comment:Supplemental ranges: <140 mg/dL before meals <180 mg/dL all other times of the day. Blood CAPILLARY BLOOD / Unknown 10/02/2024 5:01 PM EST 10/02/2024 5:01 PM EST Hayley Torres MD POINT OF CARE TEST O GILDA Performing Organization Address [facility] Co de Phone Number [facility] [place] [address] * POC, GLUCOSE (10/02/2024 3:05 PM EST) Glucometer, POC 113 65 - 199 mg/dL 10/02/2024 3:06 PM EST [facility] Comment:Supplemental ranges: <140 mg/dL before meals <180 mg/dL all other times of the day. Blood CAPILLARY BLOOD / Unknown 10/02/2024 3:05 PM EST 10/02/2024 3:06 PM EST Hayley Torres MD POINT OF CARE TEST O GILDA [facility] [place] [address] * POC, GLUCOSE (10/02/2024 11:12 AM EST) Glucometer, POC 146 65 - 199 mg/dL 10/02/2024 11:12 AM EST [facility] Comment:Supplemental ranges: <140 mg/dL before meals <180 mg/dL all other times of the day. Blood CAPILLARY BLOOD / Unknown 10/02/2024 11:12 AM EST 10/02/2024 11:12 AM EST Hayley Torres MD POINT OF CARE TEST O GILDA Performing Organization Address City/[facility] Co de Phone Number [facility] [place] [address] * POC, GLUCOSE (10/02/2024 8:12 AM EST) Glucometer, POC 131 65 - 199 mg/dL 10/02/2024 8:12 AM EST [facility] Comment:Supplemental ranges: <140 mg/dL before meals <180 mg/dL all other times of the day. Blood CAPILLARY BLOOD / Unknown 10/02/2024 8:12 AM EST 10/02/2024 8:12 AM EST Hayley Torres MD POINT OF CARE TEST O GILDA Performing Organization Address [facility] Co de Phone Number [facility] [place] [address] * POC, GLUCOSE (10/02/2024 4:19 AM EST) Glucometer, POC 131 65 - 199 mg/dL 10/02/2024 4:19 AM EST [facility] Comment:Supplemental ranges: <140 mg/dL before meals <180 mg/dL all other times of the day. Blood CAPILLARY BLOOD / Unknown 10/02/2024 4:19 AM EST 10/02/2024 4:19 AM EST Hayley Torres MD POINT OF CARE TEST O GILDA Performing Organization Address City/[facility] Co de Phone Number [facility] [place] [address] * Phosphorus (10/02/2024 12:41 AM EST) Pathologist [facility] Phosphorus 4.1 2.5 - 4.5 mg/dL 10/02/2024 1:21 AM EST [facility] Blood VENOUS BLOOD SPECIMEN / Unknown Venipuncture / Unknown 10/02/2024 12:41 AM EST 10/02/2024 12:45 AM EST Hayley Torres MD CHEMISTRY ORDERABLES [facility] [place] [address] * Magnesium (10/02/2024 12:41 AM EST) [facility] Magnesium 0.85 0.69 - 1.07 mMol/L 10/02/2024 1:21 AM [facility] Blood VENOUS BLOOD SPECIMEN / Unknown Venipuncture / Unknown 10/02/2024 12:41 AM EST 10/02/2024 12:45 AM EST Hayley Torres MD CHEMISTRY ORDERABLES Performing Organization Address City/[facility]/ZIP Co de Phone Number [facility] [place] [address] * (ABNORMAL) Basic Metabolic Panel (10/02/2024 12:41 AM EST) [facility] Glucose 113 65 - 199 mg/dL 10/02/2024 1:21 AM [facility] Comment:Glucose Concentratio n >=200 mg/dL plus symptoms is consistent with Diabetes Mellitus. Blood Urea Nitrogen 11 10 - 20 mg/dL 10/02/2024 1:21 AM [facility] Creatinine 0.49(L) 0.80 - 1.50 mg/dL 10/02/2024 1:21 AM [facility] Sodium 138 135 - 145 mMol/L 10/02/2024 1:21 AM [facility] Potassium 3.9 3.5 - 5.0 mMol/L 10/02/2024 1:21 AM [facility] Chloride 105 98 - 107 mMol/L 10/02/2024 1:21 AM [facility] Carbon Dioxide 23 22 - 31 mMol/L 10/02/2024 1:21 AM [facility] Anion Gap 10 5 - 15 mMol/L 10/02/2024 1:21 AM [facility] Calcium 8.2(L) 8.5 - 10.5 mg/dL 10/02/2024 1:21 AM [facility] Est Glomerular Filtration Rate - Male 125 mL/min/1. 73 m?? 10/02/2024 1:21 AM [facility] Comment: This patient's estimated GFR [...] MD CHEMISTRY ORDERABLES [facility] [place] [address] * (ABNORMAL) CBC (with Diff) (10/02/2024 12:41 AM EST) White Blood Cell 10.93(H) 4.00 - 9.50 x10(3)/mc L 10/02/2024 1:04 AM EST [facility] Red Blood Cell 3.30(L) 4.58 - 5.54 x10(6)/mc L 10/02/2024 1:04 AM [facility] Hemoglobin 9.6(L) 13.7 - 16.5 g/dL 10/02/2024 1:04 AM [facility] Hematocrit 28.6(L) 40.5 - 48.5 % 10/02/2024 1:04 AM [facility] Mean Cell Volume 86.7 82.9 - 93.1 fL 10/02/2024 1:04 AM [facility] Mean Cell Hemoglobin 29.1 27.5 - 32.1 pg 10/02/2024 1:04 AM [facility] Mean Cell Hemoglobin Concentration 33.6 32.0 - 35.7 g/dL 10/02/2024 1:04 AM [facility] Platelet 546(H) 145 - 357 x10(3)/mc L 10/02/2024 1:04 AM [facility] Mean Platelet Volume 9.0 7.6 - 12.9 fL 10/02/2024 1:04 AM [facility] RDW Standard Deviation 42.7 36.0 - 45.0 fL 10/02/2024 1:04 AM [facility] RDW coefficient of variation 13.3 11.4 - 13.8 % 10/02/2024 1:04 AM [facility] NRBC% auto 0.0 % 10/02/2024 1:04 AM [facility] NRBC Absolute <0.01 <0.01 x10(3)/mc L 10/02/2024 1:04 AM [facility] Neutrophil % 58.4 % 10/02/2024 1:04 AM [facility] Neutrophil Absolute (ANC) - Automated 6.38(H) 1.70 - 6.10 x10(3)/mc L 10/02/2024 1:04 AM [facility] Lymph % 23.9 % 10/02/2024 1:04 AM [facility] Lymph Absolute 2.61 0.90 - 3.20 x10(3)/mc L 10/02/2024 1:04 AM [facility] Monocyte % 5.6 % 10/02/2024 1:04 AM [facility] Monocyte Absolute 0.61 0.30 - 0.90 x10(3)/mc L 10/02/2024 1:04 AM [facility] Eos % 1.6 % 10/02/2024 1:04 AM [facility] Eos Absolute 0.18 0.00 - 0.40 x10(3)/mc L 10/02/2024 1:04 AM [facility] Basophil % 0.8 % 10/02/2024 1:04 AM [facility] Baso Absolute 0.09 0.00 - 0.10 x10(3)/mc L 10/02/2024 1:04 AM [facility] Immature Gran % 9.7 % 1:04 AM [facility] Immature Gran Absolute 1.06(H) 0.00 - 0.04 x10(3)/mc L 10/02/2024 1:04 AM [facility] Blood VENOUS BLOOD SPECIMEN / Unknown Venipuncture / Unknown 10/02/2024 12:41 AM EST 10/02/2024 12:45 AM EST Hayley Torres MD HEMATOLOGY ORDERABLE S [facility] [place] [address] * POC, GLUCOSE (10/02/2024 12:40 AM EST) Glucometer, POC 116 65 - 199 mg/dL 10/02/2024 12:41 AM [facility] Comment:Supplemental ranges: <140 mg/dL before meals <180 mg/dL all other times of the day. Blood CAPILLARY BLOOD / Unknown 10/02/2024 12:40 AM EST 10/02/2024 12:41 AM EST Hayley Torres MD POINT OF CARE TEST O RDERAHERNANDEZ Performing Organization Address City/[facility]/ZIP Co de Phone Number [facility] [place] [address] * POC, GLUCOSE (10/01/2024 8:11 PM EST) Glucometer, POC 123 65 - 199 mg/dL 10/01/2024 8:11 PM EST [facility] Comment:Supplemental ranges: <140 mg/dL before meals <180 mg/dL all other times of the day. Blood CAPILLARY BLOOD / Unknown 10/01/2024 8:11 PM EST 10/01/2024 8:11 PM EST Hayley Torres MD POINT OF CARE TEST O GILDA Performing Organization Address [facility] Co de Phone Number [facility] [place] [address] * POC, GLUCOSE (10/01/2024 6:00 PM EST) Glucometer, POC 112 65 - 199 mg/dL 10/01/2024 6:00 PM EST [facility] Comment:Supplemental ranges: <140 mg/dL before meals <180 mg/dL all other times of the day. Blood CAPILLARY BLOOD / Unknown 10/01/2024 6:00 PM EST 10/01/2024 6:00 PM EST Hayley Torres MD POINT OF CARE TEST O GILDA Performing Organization Address City/[facility]/ZIP Co de Phone Number [facility] [place] [address] * POC, GLUCOSE (10/01/2024 3:53 PM EST) Glucometer, POC 97 65 - 199 mg/dL 10/01/2024 3:53 PM EST [facility] Comment:Supplemental ranges: <140 mg/dL before meals <180 mg/dL all other times of the day. Blood CAPILLARY BLOOD / Unknown 10/01/2024 3:53 PM EST 10/01/2024 3:53 PM EST Hayley Torres MD POINT OF CARE TEST O GILDA Performing Organization Address [facility] Co de Phone Number [facility] [place] [address] * POC, GLUCOSE (10/01/2024 2:25 PM EST) Glucometer, POC 117 65 - 199 mg/dL 10/01/2024 2:25 PM EST [facility] Comment:Supplemental ranges: <140 mg/dL before meals <180 mg/dL all other times of the day. Blood CAPILLARY BLOOD / Unknown 10/01/2024 2:25 PM EST 10/01/2024 2:25 PM EST Hayley Torres MD POINT OF CARE TEST O GILDA Performing Organization Address [facility] Co de Phone Number [facility] [place] [address] * POC, GLUCOSE (10/01/2024 11:43 AM EST) Glucometer, POC 174 65 - 199 mg/dL 10/01/2024 11:43 AM EST [facility] Comment:Supplemental ranges: <140 mg/dL before meals <180 mg/dL all other times of the day. Blood CAPILLARY BLOOD / Unknown 10/01/2024 11:43 AM EST 10/01/2024 11:43 AM EST Hayley Torres MD POINT OF CARE TEST O GILDA Performing Organization Address [facility] Co de Phone Number [facility] [place] [address] * POC, GLUCOSE (10/01/2024 9:43 AM EST) Glucometer, POC 191 65 - 199 mg/dL 10/01/2024 9:43 AM EST [facility] Comment:Supplemental ranges: <140 mg/dL before meals <180 mg/dL all other times of the day. Blood CAPILLARY BLOOD / Unknown 10/01/2024 9:43 AM EST 10/01/2024 9:43 AM EST Hayley Torres MD POINT OF CARE TEST O GILDA [facility] [place] [address] * POC, GLUCOSE (10/01/2024 7:48 AM EST) Glucometer, POC 151 65 - 199 mg/dL 10/01/2024 7:48 AM EST [facility] Comment:Supplemental ranges: <140 mg/dL before meals <180 mg/dL all other times of the day. Blood CAPILLARY BLOOD / Unknown 10/01/2024 7:48 AM EST 10/01/2024 7:48 AM EST Hayley Torres MD POINT OF CARE TEST O GILDA Performing Organization Address City/[facility]/ZIP Co de Phone Number [facility] [place] [address] * POC, GLUCOSE (10/01/2024 4:25 AM EST) Glucometer, POC 133 65 - 199 mg/dL 10/01/2024 4:26 AM EST [facility] Comment:Supplemental ranges: <140 mg/dL before meals <180 mg/dL all other times of the day. Blood CAPILLARY BLOOD / Unknown 10/01/2024 4:25 AM EST 10/01/2024 4:26 AM EST Hayley Torres MD POINT OF CARE TEST O GILDA [facility] [place] [address] * Phosphorus (10/01/2024 2:02 AM EST) Phosphorus 3.9 2.5 - 4.5 mg/dL 10/01/2024 7:16 AM EST [facility] Blood VENOUS BLOOD SPECIMEN / Unknown Venipuncture / Unknown 10/01/2024 2:02 AM EST 10/01/2024 2:10 AM EST Hayley Torres MD CHEMISTRY ORDERABLES Performing Organization Address [facility] Phone Number [facility] [place] [address] * (ABNORMAL) Scan, Peripheral Blood (10/01/2024 2:02 [...] S Performing Organization Address [facility] Co de Phone Number [facility] [place] [address] * Magnesium (10/01/2024 2:02 AM EST) Magnesium 0.79 0.69 - 1.07 mMol/L 10/01/2024 2:41 AM EST [facility] Blood VENOUS BLOOD SPECIMEN / Unknown Venipuncture / Unknown 10/01/2024 2:02 AM EST 10/01/2024 2:10 AM EST Hayley Torres MD CHEMISTRY ORDERABLES Performing Organization Address City/[facility] Co ne Phone Number [facility] [place] [address] * (ABNORMAL) Basic Metabolic Panel (10/01/2024 2:02 AM EST) Glucose 122 65 - 199 mg/dL 10/01/2024 2:41 AM [facility] Comment:Glucose Concentratio n >=200 mg/dL plus symptoms is consistent with Diabetes Mellitus. Blood Urea Nitrogen 10 10 - 20 mg/dL 10/01/2024 2:41 AM [facility] Creatinine 0.47(L) 0.80 - 1.50 mg/dL 10/01/2024 2:41 AM [facility] Sodium 138 135 - 145 mMol/L 10/01/2024 2:41 AM [facility] Potassium 3.9 3.5 - 5.0 mMol/L 10/01/2024 2:41 AM [facility] Chloride 105 98 - 107 mMol/L 10/01/2024 2:41 AM [facility] Carbon Dioxide 24 22 - 31 mMol/L 10/01/2024 2:41 AM [facility] Anion Gap 9 5 - 15 mMol/L 10/01/2024 2:41 AM [facility] Calcium 8.1(L) 8.5 - 10.5 mg/dL 10/01/2024 2:41 AM [facility] Est Glomerular Filtration Rate - Male 127 mL/min/1. 73 m?? 10/01/2024 2:41 AM [facility] Comment: This patient's estimated GFR [...] MD CHEMISTRY ORDERABLES [facility] [place] [address] * (ABNORMAL) CBC (with Diff) (10/01/2024 2:02 AM EST) White Blood Cell 10.15(H) 4.00 - 9.50 x10(3)/mc L 10/01/2024 2:55 AM [facility] Red Blood Cell 3.14(L) 4.58 - 5.54 x10(6)/mc L 10/01/2024 2:55 AM [facility] Hemoglobin 9.1(L) 13.7 - 16.5 g/dL 10/01/2024 2:55 AM [facility] Hematocrit 26.9(L) 40.5 - 48.5 % 10/01/2024 2:55 AM [facility] Mean Cell Volume 85.7 82.9 - 93.1 fL 10/01/2024 2:55 AM [facility] Mean Cell Hemoglobin 29.0 27.5 - 32.1 pg 10/01/2024 2:55 AM [facility] Mean Cell Hemoglobin Concentration 33.8 32.0 - 35.7 g/dL 10/01/2024 2:55 AM [facility] Platelet 444(H) 145 - 357 x10(3)/mc L 10/01/2024 2:55 AM [facility] Mean Platelet Volume 8.9 7.6 - 12.9 fL 10/01/2024 2:55 AM [facility] RDW Standard Deviation 41.2 36.0 - 45.0 fL 10/01/2024 2:55 AM [facility] RDW coefficient of variation 13.2 11.4 - 13.8 % 10/01/2024 2:55 AM [facility] NRBC% auto 0.0 % 10/01/2024 2:55 AM [facility] NRBC Absolute <0.01 <0.01 x10(3)/mc L 10/01/2024 2:55 AM [facility] Neutrophil % 59.5 % 10/01/2024 2:55 AM [facility] Comment:This is an appended report. These results have been appended to a previously preliminary verified report. Neutrophil Absolute (ANC) - Automated 6.05 1.70 - 6.10 x10(3)/mc L 10/01/2024 2:55 AM [facility] Comment:This is an appended report. These results have been appended to a previously preliminary verified report. Lymph % 22.3 % 10/01/2024 2:55 AM [facility] Comment:This is an appended report. These results have been appended to a previously preliminary verified report. Lymph Absolute 2.26 0.90 - 3.20 x10(3)/mc L 10/01/2024 2:55 AM [facility] Comment:This is an appended report. These results have been appended to a previously preliminary verified report. Monocyte % 7.4 % 10/01/2024 2:55 AM [facility] Comment:This is an appended report. These results have been appended to a previously preliminary verified report. Monocyte Absolute 0.75 0.30 - 0.90 x10(3)/mc L 10/01/2024 2:55 AM [facility] Comment:This is an appended report. These results have been appended to a previously preliminary verified report. Eos % 1.8 % 10/01/2024 2:55 AM [facility] Comment:This is an appended report. These results have been appended to a previously preliminary verified report. Eos Absolute 0.18 0.00 - 0.40 x10(3)/mc L 10/01/2024 2:55 AM [facility] Comment:This is an appended report. [...] HEMATOLOGY ORDERABLE S [facility] [place] [address] * POC, GLUCOSE (10/01/2024 12:32 AM EST) Glucometer, POC 179 65 - 199 mg/dL 10/01/2024 12:32 AM EST [facility] Comment:Supplemental ranges: <140 mg/dL before meals <180 mg/dL all other times of the day. Blood CAPILLARY BLOOD / Unknown 10/01/2024 12:32 AM EST 10/01/2024 12:32 AM EST Hayley Torres MD POINT OF CARE TEST O RDERABLES [facility] [place] [address] * POC, GLUCOSE (09/30/2024 7:37 PM EST) Glucometer, POC 140 65 - 199 mg/dL 09/30/2024 7:38 PM EST [facility] Comment:Supplemental ranges: <140 mg/dL before meals <180 mg/dL all other times of the day. Blood CAPILLARY BLOOD / Unknown 09/30/2024 7:37 PM EST 09/30/2024 7:38 PM EST Hayley Torres MD POINT OF CARE TEST O GILDA [facility] [place] [address] * POC, GLUCOSE (09/30/2024 4:29 PM EST) Glucometer, POC 126 65 - 199 mg/dL 09/30/2024 4:30 PM EST [facility] Comment:Supplemental ranges: <140 mg/dL before meals <180 mg/dL all other times of the day. Blood CAPILLARY BLOOD / Unknown 09/30/2024 4:29 PM EST 09/30/2024 4:30 PM EST Hayley Torres MD POINT OF CARE TEST O GILDA [facility] [place] [address] * POC, GLUCOSE (09/30/2024 12:16 PM EST) [...] RDERABLES Performing Organization Address [facility] Co de Phone Number [facility] [place] [address] * POC, GLUCOSE (09/30/2024 7:58 AM EST) Glucometer, POC 92 65 - 199 mg/dL 09/30/2024 7:58 AM EST [facility] Comment:Supplemental ranges: <140 mg/dL before meals <180 mg/dL all other times of the day. Blood CAPILLARY BLOOD / Unknown 09/30/2024 7:58 AM EST 09/30/2024 7:58 AM EST Hayley Torres MD POINT OF CARE TEST O GILDA Performing Organization Address [facility] de Phone Number [facility] [place] [address] * Potassium (09/30/2024 6:27 AM EST) Potassium 3.9 3.5 - 5.0 mMol/L 09/30/2024 7:10 AM EST [facility] Blood VENOUS BLOOD SPECIMEN / Unknown Venipuncture / Unknown 09/30/2024 6:27 AM EST 09/30/2024 6:35 AM EST Hayley Torres MD CHEMISTRY ORDERABLES Performing Organization Address [facility] Co de Phone Number [facility] [place] [address] * Vancomycin, trough (09/30/2024 6:27 AM EST) Vancomycin, Trough 14.1 10.0 - 20.0 mg/L 09/30/2024 7:10 AM EST [facility] Comment: Varies according to infection source. Blood VENOUS BLOOD SPECIMEN / Unknown Venipuncture / Unknown 09/30/2024 6:27 AM EST 09/30/2024 6:35 AM EST Hayley Torres MD CHEMISTRY ORDERABLES Performing Organization Address [facility]/ZIP Co de Phone Number [facility] [place] [address] * POC, GLUCOSE (09/30/2024 3:51 AM EST) [...] RDERABLES Performing Organization Address [facility] Co de Phone Number [facility] [place] [address] * Magnesium (09/29/2024 11:52 PM EST) [facility] Magnesium 0.85 0.69 - 1.07 mMol/L 09/30/2024 12:25 AM EST [facility] Blood VENOUS BLOOD SPECIMEN / Unknown Venipuncture / Unknown 09/29/2024 11:52 PM EST 09/29/2024 11:58 PM EST Hayley Torres MD CHEMISTRY ORDERABLES Performing Organization Address City/[facility]/ZIP Co de Phone Number [facility] [place] [address] * (ABNORMAL) Basic Metabolic Panel (09/29/2024 11:52 PM EST) Glucose 133 65 - 199 mg/dL 09/30/2024 12:51 AM EST [facility] Comment:Glucose Concentratio n >=200 mg/dL plus symptoms is consistent with Diabetes Mellitus. Blood Urea Nitrogen 9(L) 10 - 20 mg/dL 09/30/2024 12:51 AM EST [facility] Creatinine 0.48(L) 0.80 - 1.50 mg/dL 09/30/2024 12:51 AM EST [facility] Sodium 138 135 - 145 mMol/L 09/30/2024 12:51 AM [facility] Potassium 3.4(L) 3.5 - 5.0 mMol/L 09/30/2024 12:51 AM [facility] Chloride 103 98 - 107 mMol/L 09/30/2024 12:51 AM [facility] Carbon Dioxide 24 22 - 31 mMol/L 09/30/2024 12:51 AM [facility] Anion Gap 11 5 - 15 mMol/L 09/30/2024 12:51 AM [facility] Calcium 8.1(L) 8.5 - 10.5 mg/dL 09/30/2024 12:51 AM [facility] Est Glomerular Filtration Rate - Male 126 mL/min/1. 73 m?? 09/30/2024 12:51 AM [facility] Comment: This patient's estimated GFR [...] MD CHEMISTRY ORDERABLES [facility] [place] [address] * (ABNORMAL) CBC (with Diff) (09/29/2024 11:52 PM EST) White Blood Cell 9.54(H) 4.00 - 9.50 x10(3)/mc L 09/30/2024 12:02 AM [facility] Red Blood Cell 3.04(L) 4.58 - 5.54 x10(6)/mc L 09/30/2024 12:02 AM [facility] Hemoglobin 8.7(L) 13.7 - 16.5 g/dL 09/30/2024 12:02 AM [facility] Hematocrit 25.8(L) 40.5 - 48.5 % 09/30/2024 12:02 AM [facility] Mean Cell Volume 84.9 82.9 - 93.1 fL 09/30/2024 12:02 AM [facility] Mean Cell Hemoglobin 28.6 27.5 - 32.1 pg 09/30/2024 12:02 AM [facility] Mean Cell Hemoglobin Concentration 33.7 32.0 - 35.7 g/dL 09/30/2024 12:02 AM [facility] Platelet 411(H) 145 - 357 x10(3)/mc L 09/30/2024 12:02 AM [facility] Mean Platelet Volume 8.8 7.6 - 12.9 fL 09/30/2024 12:02 AM [facility] RDW Standard Deviation 41.4 36.0 - 45.0 fL 09/30/2024 12:02 AM [facility] RDW coefficient of variation 13.4 11.4 - 13.8 % 09/30/2024 12:02 AM [facility] NRBC% auto 0.0 % 09/30/2024 12:02 AM [facility] NRBC Absolute <0.01 <0.01 x10(3)/mc L 09/30/2024 12:02 AM [facility] Neutrophil % 64.5 % 09/30/2024 12:02 AM [facility] Neutrophil Absolute (ANC) - Automated 6.16(H) 1.70 - 6.10 x10(3)/mc L 09/30/2024 12:02 AM [facility] Lymph % 23.1 % 09/30/2024 12:02 AM [facility] Lymph Absolute 2.20 0.90 - 3.20 x10(3)/mc L 09/30/2024 12:02 AM [facility] Monocyte % 8.0 % 09/30/2024 12:02 AM [facility] Monocyte Absolute 0.76 0.30 - 0.90 x10(3)/mc L 09/30/2024 12:02 AM [facility] Eos % 1.5 % 09/30/2024 12:02 AM [facility] Eos Absolute 0.14 0.00 - 0.40 x10(3)/mc L 09/30/2024 12:02 AM [facility] Basophil % 0.3 % 09/30/2024 12:02 AM [facility] Baso Absolute <0.04 0.00 - 0.10 x10(3)/mc L 09/30/2024 12:02 AM [facility] Immature Gran % 2.6 % 12:02 AM [facility] Immature Gran Absolute 0.25(H) 0.00 - 0.04 x10(3)/mc L 09/30/2024 12:02 AM [facility] Blood VENOUS BLOOD SPECIMEN / Unknown Venipuncture / Unknown 09/29/2024 11:52 PM EST 09/29/2024 11:58 PM EST Hayley Torres MD HEMATOLOGY ORDERABLE S [facility] [place] [address] * POC, GLUCOSE (09/29/2024 11:51 PM EST) [facility] Signature Glucometer, POC 134 65 - 199 mg/dL 09/29/2024 11:51 PM EST [facility] Comment:Supplemental ranges: <140 mg/dL before meals <180 mg/dL all other times of the day. Blood CAPILLARY BLOOD / Unknown 09/29/2024 11:51 PM EST 09/29/2024 11:51 PM EST Hayley Torres MD POINT OF CARE TEST O RDERABLES [facility] [place] [address] * Blood culture (09/29/2024 9:24 PM EST) Blood Culture No growth at 120 hours 10/04/2024 11:01 PM EST [facility] Blood VENOUS BLOOD SPECIMEN / Unknown Venipuncture / Unknown 09/29/2024 9:24 PM EST 09/29/2024 9:34 PM EST Hayley Torres MD MICROBIOLOGY - BLOOD ORDERABLES Performing Organization Address City/[facility]/ZIP Co de Phone Number [facility] [place] [address] * Blood culture (09/29/2024 9:24 PM EST) Blood Culture No growth at 120 hours 10/04/2024 11:01 PM EST [facility] Blood VENOUS BLOOD SPECIMEN / Unknown Venipuncture / Unknown 09/29/2024 9:24 PM EST 09/29/2024 9:34 PM EST Mrako Dickson MD MICROBIOLOGY - BLOOD ORDERABLES [facility] [place] [address] * (ABNORMAL) POC, GLUCOSE (09/29/2024 7:35 PM EST) Glucometer, POC 202(H) 65 - 199 mg/dL 09/29/2024 7:36 PM EST [facility] Comment:Supplemental ranges: <140 mg/dL before meals <180 mg/dL all other times of the day. Blood CAPILLARY BLOOD / Unknown 09/29/2024 7:35 PM EST 09/29/2024 7:36 PM EST Hayley Torres MD POINT OF CARE TEST O GILDA [facility] [place] [address] * POC, GLUCOSE (09/29/2024 6:48 PM EST) Glucometer, POC 161 65 - 199 mg/dL 09/29/2024 6:48 PM EST [facility] Comment:Supplemental ranges: <140 mg/dL before meals <180 mg/dL all other times of the day. Blood CAPILLARY BLOOD / Unknown 09/29/2024 6:48 PM EST 09/29/2024 6:49 PM EST Hayley Torres MD POINT OF CARE TEST O GILAD Performing Organization Address City/[facility]/ZIP Co de Phone Number [facility] [place] [address] * POC, GLUCOSE (09/29/2024 4:06 PM EST) Glucometer, POC 122 65 - 199 mg/dL 09/29/2024 4:06 PM EST [facility] Comment:Supplemental ranges: <140 mg/dL before meals <180 mg/dL all other times of the day. Blood CAPILLARY BLOOD / Unknown 09/29/2024 4:06 PM EST 09/29/2024 4:06 PM EST Hayley Torres MD POINT OF CARE TEST O GILDA [facility] [place] [address] * POC, GLUCOSE (09/29/2024 11:49 AM EST) Glucometer, POC 135 65 - 199 mg/dL 09/29/2024 11:49 AM EST [facility] Comment:Supplemental ranges: <140 mg/dL before meals <180 mg/dL all other times of the day. Blood CAPILLARY BLOOD / Unknown 09/29/2024 11:49 AM EST 09/29/2024 11:50 AM EST Hayley Torres MD POINT OF CARE TEST O GILDA [facility] [place] [address] * (ABNORMAL) POC, GLUCOSE (09/29/2024 7:53 AM EST) Glucometer, POC 202(H) 65 - 199 mg/dL 09/29/2024 7:53 AM EST [facility] Comment:Supplemental ranges: <140 mg/dL before meals <180 mg/dL all other times of the day. Blood CAPILLARY BLOOD / Unknown 09/29/2024 7:53 AM EST 09/29/2024 7:53 AM EST Hayley Torres MD POINT OF CARE TEST O GILDA Performing Organization Address City/[facility]/ZIP Co de Phone Number [facility] [place] [address] * POC, GLUCOSE (09/29/2024 3:45 AM EST) Glucometer, POC 184 65 - 199 mg/dL 09/29/2024 3:46 AM EST [facility] Comment:Supplemental ranges: <140 mg/dL before meals <180 mg/dL all other times of the day. Blood CAPILLARY BLOOD / Unknown 09/29/2024 3:45 AM EST 09/29/2024 3:46 AM EST Hayley Torres MD POINT OF CARE TEST O GILDA [facility] [place] [address] * (ABNORMAL) Hemoglobin A1c (09/28/2024 11:51 PM EST) [facility] Hemoglobin A1c 9.7(H) 4.3 - 5.6 % 09/29/2024 9:54 AM [facility] Comment: Per ADA guidelines, without [...] red blood cell turnover may not be visitor services representative of glycemic control. Reference Interval: 4.3 - 5.6% 5.7 - 6.4%: Consistent with prediabetes >=6.5%: Consistent with diagnosis of diabetes mellitus Estimated Average Glucose 232 mg/dL 09/29/2024 9:54 AM EST [facility] Blood VENOUS BLOOD SPECIMEN / Unknown Venipuncture / Unknown 09/28/2024 11:51 PM EST 09/28/2024 11:56 PM EST Hayley Torres MD CHEMISTRY ORDERABLES [facility] [place] [address] * Magnesium (09/28/2024 11:51 PM EST) [facility] Magnesium 0.72 0.69 - 1.07 mMol/L 09/29/2024 12:27 AM [facility] Blood VENOUS BLOOD SPECIMEN / Unknown Venipuncture / Unknown 09/28/2024 11:51 PM EST 09/28/2024 11:57 PM EST Hayley Torres MD CHEMISTRY ORDERABLES [facility] [place] [address] * (ABNORMAL) Basic Metabolic Panel (09/28/2024 11:51 PM EST) Glucose 204(H) 65 - 199 mg/dL 09/29/2024 12:40 AM [facility] Comment:Glucose Concentratio n >=200 mg/dL plus symptoms is consistent with Diabetes Mellitus. Blood Urea Nitrogen 6(L) 10 - 20 mg/dL 09/29/2024 12:40 AM [facility] Creatinine 0.52(L) 0.80 - 1.50 mg/dL 09/29/2024 12:40 AM [facility] Sodium 137 135 - 145 mMol/L 09/29/2024 12:40 AM [facility] Potassium 3.2(L) 3.5 - 5.0 mMol/L 09/29/2024 12:40 AM [facility] Chloride 105 98 - 107 mMol/L 09/29/2024 12:40 AM [facility] Carbon Dioxide 21(L) 22 - 31 mMol/L 09/29/2024 12:40 AM [facility] Anion Gap 11 5 - 15 mMol/L 09/29/2024 12:40 AM [facility] Calcium 6.7(LLL) 8.5 - 10.5 mg/dL 09/29/2024 12:40 AM [facility] Est Glomerular Filtration Rate - Male 123 mL/min/1. 73 m?? 09/29/2024 12:40 AM [facility] Comment: This patient's estimated GFR [...] MD CHEMISTRY ORDERABLES [facility] [place] [address] * (ABNORMAL) CBC (with Diff) (09/28/2024 11:51 PM EST) White Blood Cell 12.76(H) 4.00 - 9.50 x10(3)/mc L 09/29/2024 12:00 AM [facility] Red Blood Cell 2.90(L) 4.58 - 5.54 x10(6)/mc L 09/29/2024 12:00 AM [facility] Hemoglobin 8.5(L) 13.7 - 16.5 g/dL 09/29/2024 12:00 AM [facility] Hematocrit 24.7(L) 40.5 - 48.5 % 09/29/2024 12:00 AM [facility] Mean Cell Volume 85.2 82.9 - 93.1 fL 09/29/2024 12:00 AM [facility] Mean Cell Hemoglobin 29.3 27.5 - 32.1 pg 09/29/2024 12:00 AM [facility] Mean Cell Hemoglobin Concentration 34.4 32.0 - 35.7 g/dL 09/29/2024 12:00 AM [facility] Platelet 331 145 - 357 x10(3)/mc L 09/29/2024 12:00 AM [facility] Mean Platelet Volume 9.2 7.6 - 12.9 fL 09/29/2024 12:00 AM [facility] RDW Standard Deviation 40.4 36.0 - 45.0 fL 09/29/2024 12:00 AM [facility] RDW coefficient of variation 13.1 11.4 - 13.8 % 09/29/2024 12:00 AM [facility] NRBC% auto 0.0 % 09/29/2024 12:00 AM [facility] NRBC Absolute <0.01 <0.01 x10(3)/mc L 09/29/2024 12:00 AM [facility] Neutrophil % 86.7 % 09/29/2024 12:00 AM [facility] Neutrophil Absolute (ANC) - Automated 11.06(H) 1.70 - 6.10 x10(3)/mc L 09/29/2024 12:00 AM [facility] Lymph % 7.7 % 09/29/2024 12:00 AM [facility] Lymph Absolute 0.98 0.90 - 3.20 x10(3)/mc L 09/29/2024 12:00 AM [facility] Monocyte % 4.0 % 09/29/2024 12:00 AM [facility] Monocyte Absolute 0.51 0.30 - 0.90 x10(3)/mc L 09/29/2024 12:00 AM [facility] Eos % 0.0 % 09/29/2024 12:00 AM [facility] Eos Absolute <0.04 0.00 - 0.40 x10(3)/mc L 09/29/2024 12:00 AM [facility] Basophil % 0.2 % 09/29/2024 12:00 AM [facility] Baso Absolute <0.04 0.00 - 0.10 x10(3)/mc L 09/29/2024 12:00 AM [facility] Immature Gran % 1.4 % 12:00 AM [facility] Immature Gran Absolute 0.18(H) 0.00 - 0.04 x10(3)/mc L 09/29/2024 12:00 AM [facility] Blood VENOUS BLOOD SPECIMEN / Unknown Venipuncture / Unknown 09/28/2024 11:51 PM EST 09/28/2024 11:56 PM EST Hayley Torres MD HEMATOLOGY ORDERABLE S Performing Organization Address City/[facility]/ZIP Co de Phone Number [facility] [place] [address] * (ABNORMAL) POC, GLUCOSE (09/28/2024 11:45 PM EST) Glucometer, POC 238(H) 65 - 199 mg/dL 09/28/2024 11:45 PM EST [facility] Comment:Supplemental ranges: <140 mg/dL before meals <180 mg/dL all other times of the day. Blood CAPILLARY BLOOD / Unknown 09/28/2024 11:45 PM EST 09/28/2024 11:45 PM EST Hayley Torres MD POINT OF CARE TEST O GILDA Performing Organization Address [facility] Co de Phone Number [facility] [place] [address] * (ABNORMAL) POC, GLUCOSE (09/28/2024 10:00 PM EST) Glucometer, POC 287(H) 65 - 199 mg/dL 09/28/2024 10:00 PM EST [facility] Comment:Supplemental ranges: <140 mg/dL before meals <180 mg/dL all other times of the day. Blood CAPILLARY BLOOD / Unknown 09/28/2024 10:00 PM EST 09/28/2024 10:00 PM EST Hayley Torres MD POINT OF CARE TEST O GILDA Performing Organization Address City/[facility] Co de Phone Number [facility] [place] [address] * (ABNORMAL) POC, GLUCOSE (09/28/2024 7:51 PM EST) Glucometer, POC 243(H) 65 - 199 mg/dL 09/28/2024 7:52 PM EST [facility] Comment:Supplemental ranges: <140 mg/dL before meals <180 mg/dL all other times of the day. Blood CAPILLARY BLOOD / Unknown 09/28/2024 7:51 PM EST 09/28/2024 7:52 PM EST Hayley Torres MD POINT OF CARE TEST O GILDA Performing Organization Address [facility]/ZIP Co de Phone Number [facility] [place] [address] * Blood culture (09/28/2024 5:49 PM EST) Blood Culture No growth at 120 hours 10/03/2024 7:01 PM EST [facility] Blood VENOUS BLOOD SPECIMEN / Unknown Venipuncture / Unknown 09/28/2024 5:49 PM EST 09/28/2024 5:53 PM EST Marko Dickson MD MICROBIOLOGY - BLOOD ORDERABLES Performing Organization Address [facility] Co de Phone Number [facility] [place] [address] * (ABNORMAL) POC, GLUCOSE (09/28/2024 4:42 PM EST) Glucometer, POC 203(H) 65 - 199 mg/dL 09/28/2024 4:42 PM EST [facility] Comment:Supplemental ranges: <140 mg/dL before meals <180 mg/dL all other times of the day. Blood CAPILLARY BLOOD / Unknown 09/28/2024 4:42 PM EST 09/28/2024 4:42 PM EST Hayley Torres MD POINT OF CARE TEST O GILDA Performing Organization Address [facility] Co de Phone Number [facility] [place] [address] * (ABNORMAL) Blood Gas, Arterial POC (09/28/2024 3:16 PM EST) pH, Arterial 7.42 7.35 - 7.45 09/28/2024 3:17 PM [facility] PCO2, Arterial 39 35 - 45 mmHg 09/28/2024 3:17 PM [facility] PO2, Arterial 103 85 - 104 mmHg 09/28/2024 3:17 PM [facility] Bicarbonate, Arterial 24.8 20.0 - 26.0 mmol/L 09/28/2024 3:17 PM [facility] Base Excess, Arterial 0.2 -3.0 - 3.0 mmol/L 09/28/2024 3:17 PM [facility] Hemoglobin, Arterial 10.9(L) 13.7 - 16.5 g/dL 09/28/2024 3:17 PM [facility] Oxyhemoglobin, Arterial 97.1(H) 94.0 - 97.0 % 09/28/2024 3:17 PM [facility] Carboxyhemoglobin , Arterial 0.1 % 09/28/2024 3:17 PM [facility] Comment: Nonsmokers: 0.5-1.5% COHB ?? Smokers: Variable ??but usually less than 10% ?? Toxic: 20-30% COHB ?? Lethal: Greater than 60% COHB Methemoglobin, Arterial 0.2 <=1.5 % 09/28/2024 3:17 PM [facility] Sodium, Arterial 131(L) 135 - 145 mmol/L 09/28/2024 3:17 PM [facility] Potassium, Arterial 3.8 3.5 - 5.0 mmol/L 09/28/2024 3:17 PM [facility] Chloride, Arterial 99 98 - 107 mmol/L 09/28/2024 3:17 PM [facility] Lactate, Arterial 1.1 0.5 - 2.2 mmol/L 09/28/2024 3:17 PM [facility] IONIZED CALCIUM, ARTERIAL 1.08(L) 1.15 [...] TEST O RDERABLES [facility] [place] [address] * Surgical Pathology (09/28/2024 2:10 PM EST) Case Report Surgical Pathology Report ? Case: [id number] ? Authorizing Provider: ??Hayley Torres MD ? Collected: ? 09/28/2024 1410 ? Ordering Location: ? Main Operating Room [facility] ?? Received: ?09/28/2024 1644 ? [facility] ([facility] ? Hospital ? Pathologist: ? Aziza Packer MD ? Specimens: ?? A) - Leg, Left, Left femoral proximal graft ? B) - Leg, Left, Left distal BK pop graft ? 10/02/2024 8:17 AM [facility] Final Diagnosis A. Graft, left leg, femoral proximal, excision: - Gross surgical pathology examination. B. Graft, left leg, distal BK pop, excision: - Gross surgical pathology examination. 10/02/2024 8:17 AM [facility] Clinical Information A. Leg, Left, Left femoral proximal graft Left femoral proximal graft B. Leg, Left, Left distal BK pop graft Left distal BK pop graft 10/02/2024 8:17 AM [facility] Gross Description A. Leg, Left, [...] 8:17 AM EST [facility] Web Design Intern STRUCTURE OF LEFT LOWER LIMB / Unknown 09/28/2024 2:10 PM EST 09/28/2024 4:44 PM EST Comment:Left femoral proxima l graft Biomedical device (physical object) STRUCTURE OF LEFT LOWER LIMB / Unknown 09/28/2024 2:17 PM EST 09/28/2024 4:44 PM EST Comment:Left distal BK pop g raft Hayley Torres MD PATHOLOGY/CYTOLOGY O RDERABLES Performing Organization Address City/[facility]/ZIP Co de Phone Number [facility] [place] [address] * Potassium (09/28/2024 10:45 AM EST) Potassium 4.6 3.5 - 5.0 mMol/L 09/28/2024 12:26 PM EST [facility] Blood VENOUS BLOOD SPECIMEN / Unknown Venipuncture / Unknown 09/28/2024 10:45 AM EST 09/28/2024 10:53 AM EST Marko Dickson MD CHEMISTRY ORDERABLES [facility] [place] [address] * POC, GLUCOSE (09/28/2024 7:57 AM EST) Glucometer, POC 192 65 - 199 mg/dL 09/28/2024 7:57 AM EST [facility] Comment:Supplemental ranges: <140 mg/dL before meals <180 mg/dL all other times of the day. Blood CAPILLARY BLOOD / Unknown 09/28/2024 7:57 AM EST 09/28/2024 7:57 AM EST Marko Dickson MD POINT OF CARE TEST O RDERABLES [facility] [place] [address] * ELEN, legs, multiple levels (09/28/2024 7:44 AM EST) VB Text Report Department: Vascular Surgery Lab Patient: [id number] (GEOVANNA DIXON) CPT: 32403 Referring Physician: HERMILA SNIDER ?? Phone: Indications: [...] EST Narrative 09/28/2024 9:15 AM EST 1 [place] [address] ? Echocardiogram Report Name: GEOVANNA DIXON JR ?Study Date: 09/28/2024 06:56 AMBP: 132/75 mmHg ? Patient Location: ^IC08^A : 1975 ? Height: 179 cm ? Account: [id number] Age: 49 yrs ? Weight: 108 kg Gender: Male ?BSA: 2.3 m2 Ordering Physician: Marko Dickson MD Referring Physician: PATRIC GILES Performed By: Faiza Cole Reason For Study: Vascular graft infection, initial encounter; MRSA bacteremia Interpreting Fellow: Jame Lares. Exam Location: [facility]. Interpretation Summary -Limited study performed for bacteremia [...] 05/29/2024, no significant changes. Procedure Limited - 97398. Doppler - 90457. Color Doppler - 10409. Suboptimal quality. This study is limited because [...] Note David Lomeli MD - 09/28/2024 1 [place] [address] Echocardiogram Report Name: GEOVANNA DIXON JR Study Date: 406:56 AMBP: 132/75 mmHg Patient Location:[address] : 1975 Height: 179 cm Account: [id number] Age: 49 yrs Weight: 108 kg Gender: Male BSA: 2.3 m2 Ordering Physician: Marko Dickson MD Referring Physician: PATRIC GILES Performed By: Faiza Cole Reason For Study: Vascular graft infection, initial encounter; MRSAbacteremia Interpreting Fellow: Jame Lares. Exam Location: [facility]. Interpretation Summary -Limited study performed for bacteremia [...] 05/29/2024, no significant changes. Procedure Limited - 55585. Doppler - 92850. Color Doppler - 99931. Suboptimalquality. This study is limited because of [...] Dickson MD CHEMISTRY ORDERABLES Performing Organization Address [facility] Co de Phone Number [facility] [place] [address] * (ABNORMAL) Potassium (09/28/2024 4:55 AM EST) Potassium 2.9(LLL) 3.5 - 5.0 mMol/L 09/28/2024 5:31 AM EST [facility] Blood VENOUS BLOOD SPECIMEN / Unknown Venipuncture / Unknown 09/28/2024 4:55 AM EST 09/28/2024 5:01 AM EST Marko Dickson MD CHEMISTRY ORDERABLES Performing Organization Address [facility] de Phone Number [facility] [place] [address] * (ABNORMAL) POC, GLUCOSE (09/28/2024 3:54 AM [...] RDERABLES Performing Organization Address [facility] Co de Phone Number [facility] [place] [address] * Magnesium (09/27/2024 11:58 PM EST) Magnesium 0.77 0.69 - 1.07 mMol/L 09/28/2024 12:38 AM EST [facility] Blood VENOUS BLOOD SPECIMEN / Unknown Venipuncture / Unknown 09/27/2024 11:58 PM EST 09/28/2024 12:10 AM EST Hayley Torres MD CHEMISTRY ORDERABLES [facility] [place] [address] * (ABNORMAL) Basic Metabolic Panel (09/27/2024 11:58 PM EST) Glucose 246(H) 65 - 199 mg/dL 09/28/2024 12:38 AM [facility] Comment:Glucose Concentratio n >=200 mg/dL plus symptoms is consistent with Diabetes Mellitus. Blood Urea Nitrogen 5(L) 10 - 20 mg/dL 09/28/2024 12:38 AM [facility] Creatinine 0.48(L) 0.80 - 1.50 mg/dL 09/28/2024 12:38 AM [facility] Sodium 131(L) 135 - 145 mMol/L 09/28/2024 12:38 AM [facility] Potassium 3.2(L) 3.5 - 5.0 mMol/L 09/28/2024 12:38 AM [facility] Chloride 95(L) 98 - 107 mMol/L 09/28/2024 12:38 AM [facility] Carbon Dioxide 23 22 - 31 mMol/L 09/28/2024 12:38 AM [facility] Anion Gap 13 5 - 15 mMol/L 09/28/2024 12:38 AM [facility] Calcium 8.1(L) 8.5 - 10.5 mg/dL 09/28/2024 12:38 AM [facility] Est Glomerular Filtration Rate - Male 126 mL/min/1. 73 m?? 09/28/2024 12:38 AM [facility] Comment: This patient's estimated GFR [...] MD CHEMISTRY ORDERABLES [facility] [place] [address] * (ABNORMAL) CBC (with Diff) (09/27/2024 11:58 PM EST) White Blood Cell 17.15(H) 4.00 - 9.50 x10(3)/mc L 09/28/2024 12:14 AM [facility] Red Blood Cell 3.64(L) 4.58 - 5.54 x10(6)/mc L 09/28/2024 12:14 AM [facility] Hemoglobin 10.4(L) 13.7 - 16.5 g/dL 09/28/2024 12:14 AM [facility] Hematocrit 30.5(L) 40.5 - 48.5 % 09/28/2024 12:14 AM [facility] Mean Cell Volume 83.8 82.9 - 93.1 fL 09/28/2024 12:14 AM [facility] Mean Cell Hemoglobin 28.6 27.5 - 32.1 pg 09/28/2024 12:14 AM [facility] Mean Cell Hemoglobin Concentration 34.1 32.0 - 35.7 g/dL 09/28/2024 12:14 AM [facility] Platelet 316 145 - 357 x10(3)/mc L 09/28/2024 12:14 AM [facility] Mean Platelet Volume 9.4 7.6 - 12.9 fL 09/28/2024 12:14 AM [facility] RDW Standard Deviation 39.4 36.0 - 45.0 fL 09/28/2024 12:14 AM [facility] RDW coefficient of variation 12.8 11.4 - 13.8 % 09/28/2024 12:14 AM [facility] NRBC% auto 0.0 % 09/28/2024 12:14 AM [facility] NRBC Absolute <0.01 <0.01 x10(3)/mc L 09/28/2024 12:14 AM [facility] Neutrophil % 81.2 % 09/28/2024 12:14 AM [facility] Neutrophil Absolute (ANC) - Automated 13.93(H) 1.70 - 6.10 x10(3)/mc L 09/28/2024 12:14 AM [facility] Lymph % 10.5 % 09/28/2024 12:14 AM [facility] Lymph Absolute 1.80 0.90 - 3.20 x10(3)/mc L 09/28/2024 12:14 AM [facility] Monocyte % 5.7 % 09/28/2024 12:14 AM [facility] Monocyte Absolute 0.98(H) 0.30 - 0.90 x10(3)/mc L 09/28/2024 12:14 AM [facility] Eos % 0.7 % 09/28/2024 12:14 AM [facility] Eos Absolute 0.12 0.00 - 0.40 x10(3)/mc L 09/28/2024 12:14 AM [facility] Basophil % 0.5 % 09/28/2024 12:14 AM [facility] Baso Absolute 0.08 0.00 - 0.10 x10(3)/mc L 09/28/2024 12:14 AM [facility] Immature Gran % 1.4 % 12:14 AM [facility] Immature Gran Absolute 0.24(H) 0.00 - 0.04 x10(3)/mc L 09/28/2024 12:14 AM EST [facility] Blood VENOUS BLOOD SPECIMEN / Unknown Venipuncture / Unknown 09/27/2024 11:58 PM EST 09/28/2024 12:10 AM EST Hayley Torres MD HEMATOLOGY ORDERABLE S [facility] [place] [address] * (ABNORMAL) POC, GLUCOSE (09/27/2024 11:46 PM EST) Glucometer, POC 205(H) 65 - 199 mg/dL 09/27/2024 11:46 PM EST [facility] Comment:Supplemental ranges: <140 mg/dL before meals <180 mg/dL all other times of the day. Blood CAPILLARY BLOOD / Unknown 09/27/2024 11:46 PM EST 09/27/2024 11:46 PM EST Marko Dickson MD POINT OF CARE TEST O RDERABLES [facility] [place] [address] * (ABNORMAL) Blood culture (09/27/2024 9:33 PM [...] - BLOOD ORDERABLES [facility] [place] [address] * POC, GLUCOSE (09/27/2024 7:51 PM EST) Glucometer, POC 142 65 - 199 mg/dL 09/27/2024 7:51 PM EST [facility] Comment:Supplemental ranges: <140 mg/dL before meals <180 mg/dL all other times of the day. Blood CAPILLARY BLOOD / Unknown 09/27/2024 7:51 PM EST 09/27/2024 7:51 PM EST Marko Dickson MD POINT OF CARE TEST O RDERABLES [facility] [place] [address] * (ABNORMAL) Hemogram (09/27/2024 5:55 PM EST) [facility] White Blood Cell 19.38(H) 4.00 - 9.50 x10(3)/mc L 09/27/2024 6:16 PM [facility] Red Blood Cell 3.76(L) 4.58 - 5.54 x10(6)/mc L 09/27/2024 6:16 PM [facility] Hemoglobin 11.0(L) 13.7 - 16.5 g/dL 09/27/2024 6:16 PM [facility] Hematocrit 31.6(L) 40.5 - 48.5 % 09/27/2024 6:16 PM [facility] Mean Cell Volume 84.0 82.9 - 93.1 fL 09/27/2024 6:16 PM [facility] Mean Cell Hemoglobin 29.3 27.5 - 32.1 pg 09/27/2024 6:16 PM [facility] Mean Cell Hemoglobin Concentration 34.8 32.0 - 35.7 g/dL 09/27/2024 6:16 PM [facility] Platelet 322 145 - 357 x10(3)/mc L 09/27/2024 6:16 PM [facility] Mean Platelet Volume 9.4 7.6 - 12.9 fL 09/27/2024 6:16 PM [facility] RDW Standard Deviation 39.4 36.0 - 45.0 fL 09/27/2024 6:16 PM [facility] RDW coefficient of variation 13.0 11.4 - 13.8 % 09/27/2024 6:16 PM [facility] NRBC% auto 0.0 % 09/27/2024 6:16 PM [facility] NRBC Absolute <0.01 <0.01 x10(3)/mc L 09/27/2024 6:16 PM [facility] Blood VENOUS BLOOD SPECIMEN / Unknown Venipuncture / Unknown 09/27/2024 5:55 PM EST 09/27/2024 6:05 PM EST Marko Dickson MD HEMATOLOGY ORDERABLE S [facility] [place] [address] * POC, GLUCOSE (09/27/2024 5:48 PM EST) [facility] Glucometer, POC 171 65 - 199 mg/dL 09/27/2024 5:48 PM EST [facility] Comment:Supplemental ranges: <140 mg/dL before meals <180 mg/dL all other times of the day. Blood CAPILLARY BLOOD / Unknown 09/27/2024 5:48 PM EST 09/27/2024 5:48 PM EST Marko Dickson MD POINT OF CARE TEST O RDERABLES [facility] [place] [address] * Anaerobic Culture (09/27/2024 4:54 PM EST) 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 Hayley oTrres MD MICROBIOLOGY - GENER AL ORDERABLES [facility] [place] [address] * (ABNORMAL) Tissue Culture, Aerobic Only (09/27/2024 [...] GENER AL ORDERABLES [facility] [place] [address] * Fungus culture (09/27/2024 4:54 PM EST) Fungus Culture No fungus isolated 10/31/2024 7:55 AM EST [facility] Tissue STRUCTURE OF LEFT THIGH / Unknown 09/27/2024 4:54 PM EST 09/27/2024 5:23 PM EST Comment: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 Blood CAPILLARY BLOOD / Unknown 09/27/2024 3:23 PM EST 09/27/2024 3:23 PM EST Marko Dickson MD POINT OF CARE TEST O GILDA Performing Organization Address [facility]/ZIP Co de Phone Number [facility] [place] [address] * POC, GLUCOSE (09/27/2024 11:29 AM EST) Glucometer, POC 181 65 - 199 mg/dL 09/27/2024 11:29 AM EST [facility] Comment:Supplemental ranges: <140 mg/dL before meals <180 mg/dL all other times of the day. Blood CAPILLARY BLOOD / Unknown 09/27/2024 11:29 AM EST 09/27/2024 11:30 AM EST Marko Dickson MD POINT OF CARE TEST O GILDA [facility] [place] [address] * CT Lower Extremity w Contrast Left (09/27/2024 9:16 AM EST) WORKSTATION ID [id number] RAD Anatomical Region Laterality Modality Hip, Leg, [...] who have questions please contact the health health care specialist that requested your imaging first. ? Electronically signed by: Ignacia Chi MD, [facility] ([phone]), at 09/27/2024 10:48 AM Narrative 09/27/2024 10:48 [...] patients who have questions please contactthe health health care specialist that requested your imaging first. Electronically signed by: Ignacia Chi MD, [facility]([phone]), at 09/27/2024 10:48 AM Rose Wright COMPLAINT INVESTIGATIONS OFFICER IMG CT ORDERABL ES * POC, GLUCOSE (09/27/2024 7:51 AM EST) [facility] Glucometer, POC 194 65 - 199 mg/dL 09/27/2024 7:51 AM EST [facility] Comment:Supplemental ranges: <140 mg/dL before meals <180 mg/dL all other times of the day. Blood CAPILLARY BLOOD / Unknown 09/27/2024 7:51 AM EST 09/27/2024 7:51 AM EST Marko Dickson MD POINT OF CARE TEST O RDERABLES [facility] [place] [address] * (ABNORMAL) MRSA PCR Screen (09/27/2024 7:51 AM EST) Pathologist [facility] MRSA PCR Detected(A ) 09/27/2024 11:[address] [facility] Swab BOTH ANTERIOR NARES / Unknown Non Blood Collection / Unknown 09/27/2024 7:51 AM EST 09/27/2024 8:[address] [facility] - 09/27/2024 11:56 AM EST This test was performed using the Xpert MRSA NxG test kit and is run on the [employer] GeneXpert Dx System. This test is cleared by the U.S. Food and Drug Administration for clinical use and its performance characteristics have been verified by the [facility] at [facility]. Marko Dickson MD MOLECULAR ORDERABLES Performing Organization Address City/[facility]/ZIP Co de Phone Number [facility] [place] [address] * Potassium (09/27/2024 7:51 AM EST) Potassium 3.5 3.5 - 5.0 mMol/L 09/27/2024 9:09 AM EST [facility] Blood VENOUS BLOOD SPECIMEN / Unknown Venipuncture / Unknown 09/27/2024 7:51 AM EST 09/27/2024 8:05 AM EST Marko Dickson MD CHEMISTRY ORDERABLES Performing Organization Address City/[facility]/ZIP Co de Phone Number [facility] [place] [address] * (ABNORMAL) Potassium (09/27/2024 5:05 AM EST) [facility] Signature Potassium 3.4(L) 3.5 - 5.0 mMol/L 09/27/2024 5:32 AM EST [facility] Blood VENOUS BLOOD SPECIMEN / Unknown Venipuncture / Unknown 09/27/2024 5:05 AM EST 09/27/2024 5:09 AM EST Marko Dickson MD CHEMISTRY ORDERABLES Performing Organization Address City/[facility]/ZIP Co de Phone Number [facility] [place] [address] * POC, GLUCOSE (09/27/2024 3:52 AM EST) Glucometer, POC 199 65 - 199 mg/dL 09/27/2024 3:52 AM EST [facility] Comment:Supplemental ranges: <140 mg/dL before meals <180 mg/dL all other times of the day. Blood CAPILLARY BLOOD / Unknown 09/27/2024 3:52 AM EST 09/27/2024 3:52 AM EST Marko Dickson MD POINT OF CARE TEST O RDTYESHA [facility] [place] [address] * (ABNORMAL) POC, GLUCOSE (09/27/2024 1:59 AM EST) Glucometer, POC 219(H) 65 - 199 mg/dL 09/27/2024 2:00 AM EST [facility] Comment:Supplemental ranges: <140 mg/dL before meals <180 mg/dL all other times of the day. Blood CAPILLARY BLOOD / Unknown 09/27/2024 1:59 AM EST 09/27/2024 2:00 AM EST Marko Dickson MD POINT OF CARE TEST O GILDA [facility] [place] [address] * (ABNORMAL) Magnesium (09/27/2024 12:01 AM EST) Magnesium 0.68(L) 0.69 - 1.07 mMol/L 09/27/2024 12:35 AM EST [facility] Blood VENOUS BLOOD SPECIMEN / Unknown Venipuncture / Unknown 09/27/2024 12:01 AM EST 09/27/2024 12:05 AM EST Hayley Torres MD CHEMISTRY ORDERABLES [facility] [place] [address] * (ABNORMAL) Basic Metabolic Panel (09/27/2024 12:01 AM EST) Glucose 261(H) 65 - 199 mg/dL 09/27/2024 12:35 AM [facility] Comment:Glucose Concentratio n >=200 mg/dL plus symptoms is consistent with Diabetes Mellitus. Blood Urea Nitrogen 7(L) 10 - 20 mg/dL 09/27/2024 12:35 AM [facility] Creatinine 0.45(L) 0.80 - 1.50 mg/dL 09/27/2024 12:35 AM [facility] Sodium 128(L) 135 - 145 mMol/L 09/27/2024 12:35 AM [facility] Potassium 3.3(L) 3.5 - 5.0 mMol/L 09/27/2024 12:35 AM [facility] Chloride 92(L) 98 - 107 mMol/L 09/27/2024 12:35 AM [facility] Carbon Dioxide 23 22 - 31 mMol/L 09/27/2024 12:35 AM [facility] Anion Gap 13 5 - 15 mMol/L 09/27/2024 12:35 AM [facility] Calcium 8.5 8.5 - 10.5 mg/dL 09/27/2024 12:35 AM [facility] Est Glomerular Filtration Rate - Male 128 mL/min/1. 73 m?? 09/27/2024 12:35 AM [facility] Comment: This patient's estimated GFR [...] MD CHEMISTRY ORDERABLES [facility] [place] [address] * (ABNORMAL) CBC (with Diff) (09/27/2024 12:01 AM EST) White Blood Cell 23.20(H) 4.00 - 9.50 x10(3)/mc L 09/27/2024 12:10 AM [facility] Red Blood Cell 4.07(L) 4.58 - 5.54 x10(6)/mc L 09/27/2024 12:10 AM [facility] Hemoglobin 11.7(L) 13.7 - 16.5 g/dL 09/27/2024 12:10 AM [facility] Hematocrit 33.6(L) 40.5 - 48.5 % 09/27/2024 12:10 AM [facility] Mean Cell Volume 82.6(L) 82.9 - 93.1 fL 09/27/2024 12:10 AM [facility] Mean Cell Hemoglobin 28.7 27.5 - 32.1 pg 09/27/2024 12:10 AM [facility] Mean Cell Hemoglobin Concentration 34.8 32.0 - 35.7 g/dL 09/27/2024 12:10 AM [facility] Platelet 296 145 - 357 x10(3)/mc L 09/27/2024 12:10 AM [facility] Mean Platelet Volume 9.5 7.6 - 12.9 fL 09/27/2024 12:10 AM [facility] RDW Standard Deviation 37.9 36.0 - 45.0 fL 09/27/2024 12:10 AM [facility] RDW coefficient of variation 12.6 11.4 - 13.8 % 09/27/2024 12:10 AM [facility] NRBC% auto 0.0 % 09/27/2024 12:10 AM [facility] NRBC Absolute <0.01 <0.01 x10(3)/mc L 09/27/2024 12:10 AM [facility] Neutrophil % 83.7 % 09/27/2024 12:10 AM [facility] Neutrophil Absolute (ANC) - Automated 19.43(H) 1.70 - 6.10 x10(3)/mc L 09/27/2024 12:10 AM [facility] Lymph % 6.7 % 09/27/2024 12:10 AM [facility] Lymph Absolute 1.56 0.90 - 3.20 x10(3)/mc L 09/27/2024 12:10 AM [facility] Monocyte % 7.8 % 09/27/2024 12:10 AM [facility] Monocyte Absolute 1.80(H) 0.30 - 0.90 x10(3)/mc L 09/27/2024 12:10 AM [facility] Eos % 0.2 % 09/27/2024 12:10 AM [facility] Eos Absolute 0.04 0.00 - 0.40 x10(3)/mc L 09/27/2024 12:10 AM [facility] Basophil % 0.5 % 09/27/2024 12:10 AM [facility] Baso Absolute 0.12(H) 0.00 - 0.10 x10(3)/mc L 09/27/2024 12:10 AM [facility] Immature Gran % 1.1 % 12:10 AM [facility] Immature Gran Absolute 0.25(H) 0.00 - 0.04 x10(3)/mc L 09/27/2024 12:10 AM [facility] Blood VENOUS BLOOD SPECIMEN / Unknown Venipuncture / Unknown 09/27/2024 12:01 AM EST 09/27/2024 12:05 AM EST Hayley Torres MD HEMATOLOGY ORDERABLE S Performing Organization Address [facility] Co de Phone Number [facility] [place] [address] * (ABNORMAL) POC, GLUCOSE (09/26/2024 11:59 PM EST) Glucometer, POC 251(H) 65 - 199 mg/dL 09/26/2024 11:59 PM EST [facility] Comment:Supplemental ranges: <140 mg/dL before meals <180 mg/dL all other times of the day. Blood CAPILLARY BLOOD / Unknown 09/26/2024 11:59 PM EST 09/26/2024 11:59 PM EST Marko Dickson MD POINT OF CARE TEST O GILDA Performing Organization Address [facility] Co de Phone Number [facility] [place] [address] * (ABNORMAL) POC, GLUCOSE (09/26/2024 7:34 PM EST) Glucometer, POC 204(H) 65 - 199 mg/dL 09/26/2024 7:34 PM EST [facility] Comment:Supplemental ranges: <140 mg/dL before meals <180 mg/dL all other times of the day. Blood CAPILLARY BLOOD / Unknown 09/26/2024 7:34 PM EST 09/26/2024 7:35 PM EST Marko Dickson MD POINT OF CARE TEST Stephanie VO Performing Organization Address City/[facility]/ZIP Co de Phone Number [facility] [place] [address] * (ABNORMAL) Blood culture (09/26/2024 6:45 PM [...] - BLOOD ORDERABLES [facility] [place] [address] * (ABNORMAL) Sonicated Tissue/Implant Culture (09/26/2024 5:16 [...] GENER AL ORDERABLES [facility] [place] [address] * Anaerobic Culture (09/26/2024 5:02 PM EST) [...] GENER AL ORDERABLES [facility] [place] [address] * (ABNORMAL) Abscess/Wound Aspirate Culture, Aerobic Only [...] GENER AL ORDERABLES [facility] [place] [address] * Fungus culture (09/26/2024 5:02 PM EST) [...] GENER AL ORDERABLES [facility] [place] [address] * Anaerobic Culture (09/26/2024 4:50 PM EST) Anaerobic Culture No anaerobic organisms isolated 09/30/2024 3:51 PM EST [facility] Abscess LEFT INGUINAL REGION STRUCTURE / Unknown Non Blood Collection / Unknown 09/26/2024 4:50 PM EST Comment:Left Groin Fluid Hayley Torres MD MICROBIOLOGY - GENER AL ORDERABLES Performing Organization Address [facility]/ZIP Co de Phone Number [facility] [place] [address] * (ABNORMAL) Abscess/Wound Aspirate Culture, Aerobic Only [...] - GENER AL ORDERABLES Performing Organization Address [facility] Co de Phone Number [facility] [place] [address] * Fungus culture (09/26/2024 4:50 PM EST) Fungus Culture No fungus isolated 10/24/2024 7:54 AM [facility] Abscess LEFT INGUINAL REGION STRUCTURE / Unknown Non Blood Collection / Unknown 09/26/2024 4:50 PM EST 09/26/2024 4:56 PM EST Comment:Left Groin Fluid Hayley Torres MD MICROBIOLOGY - GENER AL ORDERABLES Performing Organization Address [facility] Co de Phone Number [facility] [place] [address] * (ABNORMAL) Blood Gas, Arterial POC (09/26/2024 4:43 PM EST) pH, Arterial 7.38 7.35 - 7.45 09/27/2024 7:41 AM [facility] PCO2, Arterial 41 35 - 45 mmHg 09/27/2024 7:41 AM [facility] PO2, Arterial 96 85 - 104 mmHg 09/27/2024 7:41 AM [facility] Bicarbonate, Arterial 23.8 20.0 - 26.0 mmol/L 09/27/2024 7:41 AM [facility] Base Excess, Arterial -1.4 -3.0 - 3.0 mmol/L 09/27/2024 7:41 AM [facility] Hemoglobin, Arterial 12.6(L) 13.7 - 16.5 g/dL 09/27/2024 7:41 AM [facility] Oxyhemoglobin, Arterial 96.2 94.0 - 97.0 % 09/27/2024 7:41 AM [facility] Carboxyhemoglobin , Arterial 0.3 % 09/27/2024 7:41 AM [facility] Comment: Nonsmokers: 0.5-1.5% COHB ?? Smokers: Variable ??but usually less than 10% ?? Toxic: 20-30% COHB ?? Lethal: Greater than 60% COHB Methemoglobin, Arterial 0.3 <=1.5 % 09/27/2024 7:41 AM [facility] Sodium, Arterial 128(L) 135 - 145 mmol/L 09/27/2024 7:41 AM [facility] Potassium, Arterial 3.0(LLL) 3.5 - 5.0 mmol/L 09/27/2024 7:41 AM [facility] Chloride, Arterial 95(L) 98 - 107 mmol/L 09/27/2024 7:41 AM [facility] Lactate, Arterial 1.7 0.5 - 2.2 mmol/L 09/27/2024 7:41 AM [facility] IONIZED CALCIUM, ARTERIAL 1.09(L) 1.15 - 1.33 mmol/L 09/27/2024 7:41 AM [facility] Glucose, Arterial 205(H) 65 - 199 mg/dL 09/27/2024 7:41 AM [facility] Comment:Glucose Concentratio n >=200 mg/dL plus symptoms is consistent with Diabetes Mellitus. Blood ARTERIAL BLOOD / Unknown 09/26/2024 4:43 PM EST 09/27/2024 7:41 AM EST Marko Dickson MD POINT OF CARE TEST O RDERABLES [facility] [place] [address] * (ABNORMAL) POC, GLUCOSE (09/26/2024 4:29 PM EST) Glucometer, POC 213(H) 65 - 199 mg/dL 09/26/2024 4:30 PM EST [facility] Comment:Supplemental ranges: <140 mg/dL before meals <180 mg/dL all other times of the day. Blood CAPILLARY BLOOD / Unknown 09/26/2024 4:29 PM EST 09/26/2024 4:30 PM EST Marko Dickson MD POINT OF CARE TEST O RDERABLES [facility] [place] [address] * (ABNORMAL) Blood Gas, Venous POC (09/26/2024 3:28 PM EST) pH, Venous 7.43(H) 7.32 - 7.42 09/26/2024 3:30 PM [facility] PCO2, Venous 41 38 - 58 mmHg 09/26/2024 3:30 PM [facility] PO2, Venous 18 16 - 65 mmHg 09/26/2024 3:30 PM [facility] Bicarbonate, Venous 26.6 22 - 31 mmol/L 09/26/2024 3:30 PM [facility] Base Excess, Venous 2.3 1.9 - 4.5 mmol/L 09/26/2024 3:30 PM [facility] Hemoglobin, Venous 12.4(L) 13.7 - 16.5 g/dL 09/26/2024 3:30 PM [facility] Oxyhemoglobin, Venous 26.8 % 09/26/2024 3:30 PM [facility] Carboxyhemoglobin , Venous 1.0 % 09/26/2024 3:30 PM [facility] Comment: Nonsmokers: 0.5-1.5% COHB ?? Smokers: Variable ??but usually less than 10% ?? Toxic: 20-30% COHB ?? Lethal: Greater than 60% COHB Methemoglobin, Venous 0.4 <=1.5 % 09/26/2024 3:30 PM EST [facility] Sodium, Venous 127(L) 135 - 145 mmol/L 09/26/2024 3:30 PM [facility] Potassium, Venous 3.3(L) 3.5 - 5.0 mmol/L 09/26/2024 3:30 PM [facility] Chloride, Venous 91(L) 98 - 107 mmol/L 09/26/2024 3:30 PM [facility] Glucose, Venous 259(H) 65 - 199 mg/dL 09/26/2024 3:30 PM [facility] Comment:Glucose Concentratio n >=200 mg/dL plus symptoms is consistent with Diabetes Mellitus. Lactate, Venous 2.2 0.5 - 2.2 mmol/L 09/26/2024 3:30 PM [facility] Ionized Calcium, Venous 1.09(L) 1.15 - 1.33 mmol/L 09/26/2024 3:30 PM [facility] Blood VENOUS BLOOD SPECIMEN / Unknown 09/26/2024 3:28 PM EST 09/26/2024 3:30 PM EST Marko Dickson MD POINT OF CARE TEST O RDERABLES [facility] [place] [address] * (ABNORMAL) Scan, Peripheral Blood (09/26/2024 2:39 PM EST) RBC Morphology Abnormal 09/26/2024 3:21 PM [facility] Platelet Estimate Normal Normal 09/26/2024 3:21 PM [facility] Microcyte 1-5 /HPF 09/26/2024 3:21 PM [facility] Platelet Clumps Present(A) (none) 3:21 PM [facility] WBC MORPHOLOGY See Comment(A) (none) 09/26/2024 3:21 PM EST [facility] Comment:Dohle BodiesToxic Gr anulation Blood VENOUS BLOOD SPECIMEN / Unknown Venipuncture / Unknown 09/26/2024 2:39 PM EST 09/26/2024 2:50 PM EST Marko Dickson MD HEMATOLOGY ORDERABLE S [facility] [place] [address] * ABORH RECHECK (PATIENT HISTORY FOUND) (09/26/2024 2:39 PM EST) [facility] ABORH Recheck Progress Complete 09/26/2024 5:[address] [facility] Blood VENOUS BLOOD SPECIMEN / Unknown Venipuncture / Unknown 09/26/2024 2:39 PM EST 09/26/2024 2:56 PM EST Marko Dickson MD BLOOD BANK LAB ORDER RANDELL [facility] [place] [address] * (ABNORMAL) Hepatic Function Panel (09/26/2024 2:39 PM EST) [facility] Albumin 3.1(L) 3.2 - 5.2 g/dL 09/26/2024 4:23 PM EST [facility] Aspartate Aminotransferase 16 <=39 unit/L 09/26/2024 4:23 PM [facility] Alanine Aminotransferase 14 0 - 55 unit/L 09/26/2024 4:23 PM [facility] Alkaline Phosphatase 160(H) 40 - 130 unit/L 09/26/2024 4:23 PM [facility] Bilirubin, Total 0.4 <=1.3 mg/dL 09/26/2024 4:23 PM [facility] Bilirubin, Direct 0.2 0.0 - 0.3 mg/dL 09/26/2024 4:23 PM [facility] Protein, Total 7.0 6.1 - 8.0 g/dL 09/26/2024 4:23 PM EST [facility] Blood VENOUS BLOOD SPECIMEN / Unknown Venipuncture / Unknown 09/26/2024 2:39 PM EST 09/26/2024 2:50 PM EST Marko Dickson MD CHEMISTRY ORDERABLES [facility] [place] [address] * (ABNORMAL) Basic Metabolic Panel (09/26/2024 2:39 PM EST) Glucose 254(H) 65 - 199 mg/dL 09/26/2024 4:32 PM EST [facility] Comment:Glucose Concentratio n >=200 mg/dL plus symptoms is consistent with Diabetes Mellitus. Blood Urea Nitrogen 9(L) 10 - 20 mg/dL 09/26/2024 4:32 PM [facility] Creatinine 0.55(L) 0.80 - 1.50 mg/dL 09/26/2024 4:32 PM [facility] Sodium 127(L) 135 - 145 mMol/L 09/26/2024 4:32 PM [facility] Potassium 3.4(L) 3.5 - 5.0 mMol/L 09/26/2024 4:32 PM [facility] Chloride 89(L) 98 - 107 mMol/L 09/26/2024 4:32 PM [facility] Carbon Dioxide 25 22 - 31 mMol/L 09/26/2024 4:32 PM [facility] Anion Gap 13 5 - 15 mMol/L 09/26/2024 4:32 PM [facility] Calcium 8.9 8.5 - 10.5 mg/dL 09/26/2024 4:32 PM [facility] Est Glomerular Filtration Rate - Male 121 mL/min/1. 73 m?? 09/26/2024 4:32 PM [facility] Comment: This patient's estimated GFR [...] MD CHEMISTRY ORDERABLES [facility] [place] [address] * (ABNORMAL) CBC (with Diff) (09/26/2024 2:39 PM EST) White Blood Cell 22.76(H) 4.00 - 9.50 x10(3)/mc L 09/26/2024 3:21 PM EST [facility] Red Blood Cell 4.20(L) 4.58 - 5.54 x10(6)/mc L 09/26/2024 3:21 PM EST [facility] Hemoglobin 12.3(L) 13.7 - 16.5 g/dL 09/26/2024 3:21 PM [facility] Hematocrit 35.0(L) 40.5 - 48.5 % 09/26/2024 3:21 PM [facility] Mean Cell Volume 83.3 82.9 - 93.1 fL 09/26/2024 3:21 PM [facility] Mean Cell Hemoglobin 29.3 27.5 - 32.1 pg 09/26/2024 3:21 PM [facility] Mean Cell Hemoglobin Concentration 35.1 32.0 - 35.7 g/dL 09/26/2024 3:21 PM [facility] Platelet 277 145 - 357 x10(3)/mc L 09/26/2024 3:21 PM [facility] Mean Platelet Volume 9.6 7.6 - 12.9 fL 09/26/2024 3:21 PM [facility] RDW Standard Deviation 37.9 36.0 - 45.0 fL 09/26/2024 3:21 PM [facility] RDW coefficient of variation 12.6 11.4 - 13.8 % 09/26/2024 3:21 PM [facility] NRBC% auto 0.0 % 09/26/2024 3:21 PM [facility] NRBC Absolute <0.01 <0.01 x10(3)/mc L 09/26/2024 3:21 PM [facility] Neutrophil % 84.0 % 09/26/2024 3:21 PM [facility] Comment:This is an appended report. These results have been appended to a previously preliminary verified report. Neutrophil Absolute (ANC) - Automated 19.10(H) 1.70 - 6.10 x10(3)/mc L 09/26/2024 3:21 PM [facility] Comment:This is an appended report. These results have been appended to a previously preliminary verified report. Lymph % 6.2 % 09/26/2024 3:21 PM [facility] Comment:This is an appended report. These results have been appended to a previously preliminary verified report. Lymph Absolute 1.41 0.90 - 3.20 x10(3)/mc L 09/26/2024 3:21 PM [facility] Comment:This is an appended report. These results have been appended to a previously preliminary verified report. Monocyte % 8.1 % 09/26/2024 3:21 PM [facility] Comment:This is an appended report. These results have been appended to a previously preliminary verified report. Monocyte Absolute 1.85(H) 0.30 - 0.90 x10(3)/mc L 09/26/2024 3:21 PM EST [facility] Comment:This is an appended report. These results have been appended to a previously preliminary verified report. Eos % 0.0 % 09/26/2024 3:21 PM EST [facility] Comment:This is an appended report. These results have been appended to a previously preliminary verified report. Eos Absolute <0.04 0.00 - 0.40 x10(3)/mc L 09/26/2024 3:21 PM EST [facility] Comment:This is an appended report. These results have been appended to a previously preliminary verified report. Basophil % 0.5 % 09/26/2024 3:21 PM [facility] Comment:This is an appended report. These results have been appended to a previously preliminary verified report. Baso Absolute 0.11(H) 0.00 - 0.10 x10(3)/mc L 09/26/2024 3:21 PM EST [facility] Comment:This is an appended report. These results have been appended to a previously preliminary verified report. Immature Gran % 1.2 % 3:21 PM EST [facility] Comment:This is an appended report. These results have been appended to a previously preliminary verified report. Immature Gran Absolute 0.28(H) 0.00 - 0.04 x10(3)/mc L 09/26/2024 3:21 PM EST [facility] Comment:This is an appended report. These results have been appended to a previously preliminary verified report. Blood VENOUS BLOOD SPECIMEN / Unknown Venipuncture / Unknown 09/26/2024 2:39 PM EST 09/26/2024 2:50 PM EST Hayley Torres MD HEMATOLOGY ORDERABLE S [facility] [place] [address] * Phosphorus (09/26/2024 2:39 PM EST) Phosphorus 3.2 2.5 - 4.5 mg/dL 09/26/2024 4:05 PM EST [facility] Blood VENOUS BLOOD SPECIMEN / Unknown Venipuncture / Unknown 09/26/2024 2:39 PM EST 09/26/2024 2:50 PM EST Marko Dickson MD CHEMISTRY ORDERABLES [facility] [place] [address] * (ABNORMAL) Magnesium (09/26/2024 2:39 PM EST) [facility] Magnesium 0.65(L) 0.69 - 1.07 mMol/L 09/26/2024 4:05 PM EST [facility] Blood VENOUS BLOOD SPECIMEN / Unknown Venipuncture / Unknown 09/26/2024 2:39 PM EST 09/26/2024 2:50 PM EST Marko Dickson MD CHEMISTRY ORDERABLES Performing Organization Address City/[facility]/ZIP Co de Phone Number [facility] [place] [address] * Type and screen ([facility]CGP/BABITA) (09/26/2024 2:39 PM EST) [facility] ABORH Type A POSITIVE 09/26/2024 3:[address] [facility] PATIENT HISTORY Found 09/26/2024 3:[address] [facility] Expires at [id number] on: 09/29/2024 09/26/2024 3:[address] [facility] ANTIBODY SCREEN AUTOMATED Negative 09/26/2024 3:[address] [facility] T&S only valid at [facility] 09/26/2024 3:[address] [facility] Blood VENOUS BLOOD SPECIMEN / Unknown Venipuncture / Unknown 09/26/2024 2:39 PM EST 09/26/2024 2:[address] [facility] - 09/26/2024 3:45 PM EST This Type and Screen result is only valid at the [facility] Marko Dickson MD BLOOD BANK LAB ORDER RANDELL Performing Organization Address City/[facility]/ZIP Co de Phone Number [facility] [place] [address] * (ABNORMAL) Fibrinogen (09/26/2024 2:39 PM EST) [...] S Performing Organization Address [facility] Co de Phone Number [facility] [place] [address] * APTT (09/26/2024 2:39 PM EST) Partial [...] HEMATOLOGY ORDERABLE S [facility] [place] [address] * (ABNORMAL) Prothrombin Time (09/26/2024 2:39 PM [...] HEMATOLOGY ORDERABLE S [facility] [place] [address] * (ABNORMAL) POC, GLUCOSE (09/26/2024 2:36 PM EST) Glucometer, POC 268(H) 65 - 199 mg/dL 09/26/2024 2:36 PM EST [facility] Comment:Supplemental ranges: <140 mg/dL before meals <180 mg/dL all other times of the day. Blood CAPILLARY BLOOD / Unknown 09/26/2024 2:36 PM EST 09/26/2024 2:36 PM EST Marko Dickson MD POINT OF CARE TEST O RDERABLES [facility] [place] [address] * (ABNORMAL) Blood culture (09/26/2024 2:22 PM EST) Blood Culture Methicillin Resistant Staphylococcus aureus(Critical) VITEK 2 METHOD 10/07/2024 7:40 AM EST [facility] Comment: detected by PCR Isolate saved. If future testing is required, contact the [facility]. Gram Stain Aerobic Bottle: Gram positive cocci [...] City/State/[facility] Co de Phone Number [facility] [place] [address] * Request For 2nd Read CT Lower Extremity (09/26/2024 1:50 PM EST) Digital [employer] Signature WORKSTATION ID [id number] [facility] Anatomical Region Laterality Modality Hip, [...] who have questions please contact the health health care specialist that requested your imaging first. ? Electronically signed by: Lisette Bruno MD, [facility] ([phone]), at 09/26/2024 3:01 PM Narrative 09/26/2024 3:01 PM EST EXAMINATION: REQUEST FOR 2ND READ CT LOWER EXTREMITY CLINICAL HISTORY: Pt s/p LLE femoral-below knee popliteal bypass with PTFE graft, c/f infection surrounding graft, en route to [facility] [place] possible vascular surgery intervention; Sending Institution [...] c/f infection surrounding graft, en route to [facility] for possiblevascular surgery intervention; Sending Institution [facility] [...] patients who have questions please contactthe health health care specialist that requested your imaging first. Electronically signed by: Lisette Bruno MD, [facility]([phone]), at 09/26/2024 3:01 PM Marko Dickosn MD IMG OUTSIDE [facility] TATION ORDERABLES documented in this encounter [...] Indira Tracey RN)[phone] (Given - Provider: Indira Tracye RN)[phone] (Given - Provider: Indira Tracey RN [...] Routine documented in this encounter Care Teams Rate Clerk Passenger Relationship Specialty Start Date End Date Charles Romero [place] [address] PCP - General Internal Medicine 09/18/24 documented as of this encounter
--- OUTSIDE RECORDS SUMMARY | 2024-10-31 17:00 | XMS_ITS | Encounter Summary ---
Author Organization [facility] [place] [address] Care Team Providers Care Desk Sergeant Name Role Phone Charles Romero Primary Care Provider + Reason for Visit * Auth/Cert (Routine) Specialty Diagnoses / Procedures Referred By William moses Referred To Contact Diagnoses Vascular graft infection, initial encounter Sepsis [A41.9] T82.7XXA Procedures EMERGENCY IPI Angel Gonsalez MD [facility] [place] [address] [facility] Referral ID Status Reason Start Date Expiration Date Visits Re quested Visits Authorized [id number] 1 1 Encounter Details Date Type Department Care Team (Late st Contact Info) Description 09/28/2024 11:29 AM EST Anesthesia [place] [address] Isabel Longoria MD [facility] [place] [address] Anesthesia Record Procedure Summary Procedure Name Responsible [...] by Liana Mccormack RN PIV 09/26/24; 1200; ywvm-vok-deidyq catheter system; 18 gauge; median cubital vein (antecubital fossa), left; [facility]; site symptomatic; 10/04/24; 1100 09/26/24 1200 by Pamela Eli RN 10/04/24 1100 by Liana Mccormack RN PIV 09/26/24; 1534; 20 gauge; basilic vein (medial side of arm), right; site symptomatic; 10/04/24; 1100 09/26/24 1534 by Pamela Eli RN 10/04/24 1100 by Liana Mccormack RN PIV 09/26/24; 1620; xhxm-fby-tpvrjv catheter system; 14 gauge; median cubital vein (antecubital fossa), right; Ultrasound Guidance; Pat Esther; 10/02/24; 1000 09/26/24 1620 by Jules Christopher CRNA 10/02/24 1000 by Cyndi Castro RN Urethral Catheter 09/26/24; 1620; Surg wei longer than 2 hours, Physician order, Need for intraoperative urine output monitoring; Immobility without alternative; indwelling double lumen catheter; hydrophilic coated, latex; 14; inserted at [facility]; 1; 5; 10; none; drainage bag; [...] Time: 1631 09/28/24 1143 by Yamilex Souza, GOVERNMENT AUDITOR 09/28/24 1631 by Yamilex Souza CRNA Arterial [...] has e electric, gas, oil, or water [employer] threatened to shut off services in your [...] any time in the past 12 m [facility], were you homeless or living in [...] Procedure Summary Date: 09/28/24 Room / Location: [facility] OR [address] [place] [address] MAIN OR Anesthesia Start: 1129 Anesthesia Stop: 1641 Procedure: REV. FEM. ANASTOMOSIS OF SYN. BYPASS GRAFT USING NONAUTOGENOUS PATCH ANGIOPLASTY-JENNIFER (WRVU 23.15) (Left: Leg) Diagnosis: (Infected explanted left leg bypass graft) Surgeons: Hayley Torres MD Responsible Provider: Isabel Longoria MD Anesthesia Type: general ASA Status: 3 All Anesthesia Providers: Anesthesiologist: Isabel Longoria MD GOVERNMENT AUDITOR: Yamilex Souza CRNA Vitals Value Taken Time [...] METATARSO-PHALANGEAL JOINT (WRVU 3.51) performed by Thony Gacria MD at [facility] MAIN OR [...] at [facility] MAIN OR PRO EXCISION, INFEC GRAFT, EXTREMITY Left 09/26/2024 EXCISION OF INFECTED GRAFT FROM LOWER EXTREMITY (WRVU 9.53) performed by Hayley Torres MD at [facility] MAIN OR VS ARTERIOGRAM LOWER EXTREMITY VASCULAR SURGERY 07/20/2024 VS Arteriogram Lower Extremity Vascular Surgery 07/20/2024 Taylor Ruiz MD [facility] INTERVENTIONL RAD Social History Tobacco Use [...] risks discussed with patient. Plan discussed with GOVERNMENT AUDITOR. Anesthesia Screening documented in this encounter Plan of Treatment Upcoming Encounters Date Type Department Care Team (Late st Contact Info) Description 11/09/2024 1:30 PM EST Office Visit [place] [phone] Isabela Hayward, SALES DEVELOPMENT ASSOCIATE [facility] [place] [address] 11/10/2024 10:00 AM EST Office Visit [place] [phone] Dai Whitman APRN 11/21/2024 2:15 PM EST Office [place] [address] Dayanara Grover MD [facility] [place] [address] documented as of this encounter Visit Diagnoses [...] Starting on Angelita 09/28/24 at 1221, Until Aneglita 09/28/24 at 1645, Anesthesia Intra-op, Routine Given [...] mg documented in this encounter Care Teams Desk Sergeant Relationship Specialty Start Date End Date Charles Romero PA [address] [place] [address] PCP - General Internal Medicine 09/18/24 documented as of this encounter
--- OUTSIDE RECORDS SUMMARY | 2024-10-31 17:02 | XMS_ITS | Encounter Summary ---
Author Organization [facility] [place] [address] Care Team Providers Care Tube Room Cashier Name Role Phone Charles Romero Primary Care Provider + Reason for Visit * Auth/Cert (Routine) Specialty Diagnoses / Procedures Referred By William moess Referred To Contact Diagnoses Vascular graft infection, initial encounter Sepsis [A41.9] T82.7XXA Procedures EMERGENCY IPI Angel Gonsalez MD [facility] [place] [address] [facility] Referral ID Status Reason Start Date Expiration Date Visits Re quested Visits Authorized [id number] 1 1 Encounter Details Date Type Department Care Team (Late st Contact Info) Description 09/27/2024 3:47 PM EST Anesthesia Event [place] [address] Joaquina Amor MD [facility] [place] [address] Marco Santana MD [facility] [place] [address] Anesthesia Record Procedure Summary Procedure Name Responsible [...] expected post-operative course (including disposition.) Franklyn Li, CEMETERY WORKER 1625 Procedure Start 1653 Handoff Intra-procedure anesthesia care was transferred after review of the patient's history, current anesthetic/surgical status and procedural plan, anticipated issues and expected post-operative course (including disposition.) Franklyn Li, CEMETERY WORKER 1720 Procedure Stop 1722 Extubation/LMA Out 1731 [...] by Liana Mccormack RN PIV 09/26/24; 1200; qgus-soz-zzysxd catheter system; 18 gauge; median cubital vein [...] monitoring, frequent blood gas measurement; Gio Christopher business office director; Sterile Prep, Sterile Gloves; 09/28/24; 0200 09/26/24 1606 by uJles Christopher CEMETERY WORKER 09/28/24 0200 by Mariya Shi RN PIV 09/26/24; 1620; sfow-blb-xbaayx catheter system; 14 gauge; median cubital vein (antecubital fossa), right; Ultrasound Guidance; Cheryl Santana; 10/02/24; 1000 09/26/24 1620 by Jules Christopher, CEMETERY WORKER 10/02/24 1000 by Cyndi Castro RN Urethral Catheter 09/26/24; 1620; Surg wei longer than 2 hours, Physician order, Need for intraoperative urine output monitoring; Immobility without alternative; indwelling double lumen catheter; hydrophilic coated, latex; 14; inserted at [facility]; 1; 5; 10; none; drainage bag; 10/03/24; [...] Teeth: 23 cm; Inserted by: Franklyn Li CEMETERY WORKER; Removal Date: 09/27/24; Removal Time: 17209/27/24 1604 by Franklyn Li CEMETERY WORKER 09/27/24 1722 by Desean Chavis CRNA Open [...] drink = 0.6 oz pur e alcohol) [facility] Utilities Answer Date Recorded In the past [...] Procedure Summary Date: 09/27/24 Room / Location: [facility] OR [address] [place] [address] MAIN OR Anesthesia Start: 154 Anesthesia Stop: 1740 Procedure: DEBRIDEMENT SKIN AND SUBCU, LOWER EXTREMITY (WRVU 1.01) (Left) Diagnosis: (Infected explanted left leg bypass graft) Surgeons: Hayley Torres MD Responsible Provider: Joaquina Amor MD Anesthesia Type: general ASA Status: 3 All Anesthesia Providers: Anesthesiologist: Hailey Connor MD; Joaquina Amor MD CEMETERY WORKER: Desean Chavis CRNA; Franklyn Li CRNA Vitals [...] Garcia MD at [facility] MAIN OR ??? PRO BYPASS GRAFT OTHR, FEM-TIBIAL Left 08/01/2024 @BYPASS GRAFT, FEM-ANT TIBIAL, -POST TIBIAL, -PERONEAL, -DP W\ SYNTHETIC CONDUIT (WRVU 23.66) performed by Lisette Maldonado MD at [facility] MAIN OR ??? PRO CABG, ARTERY-VEIN, SINGLE 01/04/2012 @CABG, VENOUS & ARTERIAL GRAFT;SINGLE VEIN GRAFT performed by INNA TOVAR at [facility] MAIN OR ??? PRO ENDOSCOPY W/VIDEO-ASST VEIN HARVEST, CABG 01/04/2012 ENDOSCOPIC HARVEST VEIN(S) FOR CABG performed by INNA TOVAR at [facility] MAIN OR ??? VS ARTERIOGRAM LOWER EXTREMITY VASCULAR SURGERY 07/20/2024 VS Arteriogram Lower Extremity Vascular Surgery 07/20/2024 Taylor Ruiz MD [facility] INTERVENTIONL RAD Social History Tobacco Use ??? [...] - Other Informed Consent: Plan discussed with CEMETERY WORKER. Anesthesia Screening documented in this encounter Plan of Treatment Upcoming Encounters Date Type Department Care Team (Late st Contact Info) Description 11/09/2024 1:30 PM EST Office [place] [address] Isabela Hayward, FAST FOOD TEAM MEMBER [facility] [place] [address] 11/10/2024 10:00 AM EST Office [place] [phone] Dai Whitman, RESHMA 11/21/2024 2:15 PM EST Office [place] [phone] Dayanara Grover MD [facility] [place] [address] documented as of this encounter Visit Diagnoses [...] over 4 Hours, Warning Vesicant/Irritant Medication Per resident care manager labeling, do not administer or Y-site [...] mg documented in this encounter Care Teams Tube Room Cashier Relationship Specialty Start Date End Date Charles Romero PA [facility] [place] [address] PCP - General Internal Medicine 09/18/24 documented as of this encounter
--- OUTSIDE RECORDS SUMMARY | 2024-10-31 17:02 | XMS_ITS | Encounter Summary ---
Author Organization [facility] [place] [address] Care Team Providers Care Armor Senior Sergeant Name Role Phone Charles Romero Primary Care Provider + Reason for Visit * Auth/Cert (Routine) Specialty Diagnoses / Procedures Referred By William moses Referred To Contact Diagnoses Vascular graft infection, initial encounter Sepsis [A41.9] T82.7XXA Procedures EMERGENCY IPI Angel Gonsalez MD [facility] [place] [address] [facility] Referral ID Status Reason Start Date Expiration Date Visits Re quested Visits Authorized [id number] 1 1 Encounter Details Date Type Department Care Team (Late st Contact Info) Description 09/28/2024 10:25 AM EST - 09/28/2024 12:15 PM EST [place] [address] Hayley Torres MD [facility] [place] [address] REV. FEM. ANASTOMOSIS OF SYN. BYPASS GRAFT USING NONAUTOGENOUS PATCH ANGIOPLASTY-JENNIFER (WRVU 23.15) Social History Tobacco Use Types Packs/Day Years Used Date Smoking Tobacco: Every Day Cigarettes 12 02 Started: 12/28/1986; Last attempted to quit: 12/28/2011 Smokeless Tobacco: Never Alcohol Use Standard Drinks/Week Comments No 0 (1 standard drink = 0.6 oz pur e alcohol) [facility] Utilities Answer Date Recorded In the [...] living in a mcc (including now)? No 09/27/2024 DH IPV Inpatient [...] Operations/Major Procedures: 09/26/24: Explant of infected LEFT PARIMUTUEL TICKET CASHIER to below-knee popliteal artery PTFE bypass graft [...] Finney MD - Assisting Attending 09/29/24: @EXPLORATION W\\O SURGICAL REPAIR, FEMORAL ARTERY - JENNIFER (WRVU [...] toe amputation who was transferred from [facility] given concern for infected left fem-BK popliteal [...] pericardial patch and PTFE willard over the PARIMUTUEL TICKET CASHIER was unincorporated. - Resection of prior femoral [...] 2 tablespoons of dried fruit. Milk and mc-oftsh-vidtc yogurt have 15 grams of carbs in a serving. A serving is 1 cup of milk or 3/4 cup (6 oz) of ty-qmsvz-vgsot yogurt. Starchy vegetables have 15 grams of [...] was scheduled for a f/u nutrition evaluation. Vp Software Support met pt at bedside. Pt sharedthat his [...] Based on current findings- home (sister & wamdame-nt-wcf's home) Consult Recommendations: No other consults recommended [...] stable. Estimated Blood Loss: None Karolyn E Tirstan, MD Vascular Surgery, 6709 10/09/24 Important Studies and Lab Data: Labs: [...] 05/29/2024, no significant changes. Procedure Limited - 82164. Doppler - 54452. Color Doppler - 86103. Suboptimal quality. This study is limited because [...] on series 3, image 8 and 641, 492, 833, 212. No other rim-enhancing fluid collection is [...] PM Isabela Hayward APRN Infectious Disease at [facility] Arrive at: Home [phone] To view instructions for your video visit, click here, or visit this website: [email or web address] If you have not previously downloaded the [facility] patient portal software, [employer], please do so by clicking one of the links below or searching in your device's lobito store. [employer] devices 11/09/2024 1:30 PM Isabela Hayward APRN Infectious Disease at [facility] Arrive at: Clinical Rehab Specialist Area [phone] 11/21/2024 2:15 PM Dayanara Grover MD Endocrinology at [facility] Arrive at: Clinical Rehab Specialist Area 3A [phone] Future Orders Complete By Expires CBC (with Diff) [IMQ925 Custom] 10/17/2024 12/11/2024 Process Instructions: INCLUDES: WBC, RBC, Hgb, Hct, Platelets, RBC Indices and Differential Scheduling Instructions: Comments: Questions: OPAT: Order / Recommendation for Post Discharge IV Antibiotic Management [GGD790 CPT(R)] As directed Process Instructions: If no progress note charted, please enter Clinical details in comments. Scheduling Instructions: Comments: - If this order was signed greater than 72 hours prior to [facility] discharge, please call to confirm the accuracy of this order. Please Fax all results to: [facility] Program Infectious Disease Section [facility], [place] [address] FAX: - After hours, please contact the Infectious Disease Physician monogram machine operator at . - Line care instructions - see flush/heparin orders. Facilities may follow organizational policies/practices regarding heparin. - [facility] for medication administration/supervisor power reactor and catheter care/maintenance authorized. - CVC/PICC Dressing Change weekly and PRN Please use CHG or Bio Patch RN: Please care for PICC line including dressing changes weekly and prn. Please draw labs every Wednesday and PRN and fax results to [facility] at [phone]. Please draw labs off PICC line. Please see [facility] for lab draw details. Please RN visit for IV ABX teaching and ongoing assessment. [facility] for Medication Administration/Hookup and catheter care/maintenance: - Teach Patient/Caregiver goals/self-monitoring/therapy administration to independence per the Nursing Care Plan. - [facility] visit frequency; initial, weekly and 2 PRN [...] Amaya Hernandez MD Referral for Outpatient Antibiotics [TGA5212 CPT(R)] As directed Process Instructions: Scheduling Instructions: [...] Jr. for admission to Home Health. [address] [place] [address] Phone Number: [phone] (home) Date of : 1975 Inpatient DOCUMENTATION FOR VNA SERVICES (INCLUDING THOSE PATIENTS WITH MEDICARE COVERAGE REQUIRING HOME VNA SERVICES AND/OR HOSPICE SERVICES) PATIENT'S LOCATION: Geovanna Dixon Jr. [address] [place] [address] [phone] (home) Cell: Telephone Information: Meter/Relay Technician's Name: Geovanna In discussion with the attending physician, it is certified that this patient is under their care and that they, or a Nurse Practitioner, Clinical Nurse specialist or Physician Summer Clerk who is working directly with them, had [...] for managing ADLs. HOME HEALTH CARE AGENCY: [facility]. [address] [place] [address] START OF CARE: within 24-48 hours of discharge Patient has Medicare Please note that any additional orders needs or changes will need to be obtained from this patient's PCP: JUSTIN Roberson [address] [facility] [address] . All VNA agencies which cover the area of patient's residence have been reviewed, either verbally or in writing, andpatient/family have chosen the home health care agency noted. Questions: Disciplines Requested: Nursing Physical Therapy Occupational Therapy Recurring Lab Work Interval Expires CBC (with Diff) [HWA107 Custom] Once a week until 12/10/2024 12/10/2024 [...] For any problems or questions please call [phone] For issues on weeknights after 5pm and weekends please call [phone] and ask for the Vascular Fellow monogram machine operator. Discharge Medications: Your Medications New Medications Dose [...] - See Instructions). FLUSH PROTOCOL WITH MEDICATIONS ([facility]): Before med infusion: flush with [...] can get this completed at 3L at [facility] prior to your scheduled appointment. Stop atorvastatin [...] For any problems or questions please call [phone] For issues on weeknights after 5pm and weekends please call [phone] and ask for the Vascular Fellow monogram machine operator. documented in this encounter Discharge [...] 2 tablespoons of dried fruit. Milk and hg-qanjn-lxnyi yogurt have 15 grams of carbs in a serving. A serving is 1 cup of milk or 3/4 cup (6 oz) of ox-jkwkf-nprer yogurt. Starchy vegetables have 15 grams of [...] can get this completed at 3L at [facility] prior to your scheduled appointment. Stop atorvastatin [...] For any problems or questions please call [phone] For issues on weeknights after 5pm and weekends please call [phone] and ask for the Vascular Fellow monogram machine operator. documented in this encounter Medications [...] - See Instructions). FLUSH PROTOCOL WITH MEDICATIONS ([facility]): Before med infusion: flush with [...] - See Instructions). FLUSH PROTOCOL WITH MEDICATIONS ([facility]): Before med infusion: flush with [...] to contact. Reviewed roles and responsibilities of CERTIFIED TECHNICIAN and infusion vendor. Contact information for ID and Vascular team/clinic, CERTIFIED TECHNICIAN and infusion vendor given to pt. Discussed f/u appointments in ID 5C clinic, telephone and tele health. Pt verbalized understanding. All questions answered. IV & PO ABX Medications: Daptomycin 700mg IV daily Start/anticipated end date: 10/10/24-11/10/24 CERTIFIED TECHNICIAN: [place] Infusion vendor: [facility] IV Access: 4 Fr. single [...] 2 tablespoons of dried fruit. Milk and vu-etunm-domuf yogurt have 15 grams of carbs in a serving. A serving is 1 cup of milk or 3/4 cup (6 oz) of wt-ddtet-gcaen yogurt. Starchy vegetables have 15 grams of [...] this time. OT to complete orders. Pager: [phone] Fabián Burrows OT 10/09/2024 Occupational Therapy Rehabilitation [...] Loss: None Karolyn Hudson MD Vascular Surgery, 4769 10/09/24 * Terry Jimenez, PT - 10/09/2024 12:02 PM EST Physical Therapy Visit #2 Patient profile: Geovanna Dixon Jr. is a 49 y.o. male with a history of HTN, HLD, NSTEMI, CAD s/p CABG (12/2011), DM,obesity, PAD s/p L iliofem endart and L fem-BK pop bypass and L 2nd toe amputation who was transferred from [facility], 09/26/24 given concern for infected left fem-BK popliteal PTFE bypass. He is now s/p an explant of an infected left femoral-below knee popliteal artery bypass graft (09/26), I/D groin abscess (09/27), L GSV harvest, vein patch angioplasty, L PARIMUTUEL TICKET CASHIER and BK pop w/ sartorius flap L fem, I/D, 09/29 L sartorius flap revision, vac change. 10/03/24 NPO at [facility] for OR wound exploration. [...] He mentions he'll stay with sister and hbrilbd-kk-sfg upon DC. Pt resting in bed upon [...] up with R and down with L, sczb-le-mdtd. Balance: Sitting: NORMAL- EOB unsupported good postural [...] Based on current findings- home (sister & lvmqynn-pk-kso's home) Consult Recommendations: No other consults recommended [...] 15 (TE-F) minutes TERRY JIMENEZ PT Pager: [phone] Physical Therapy Inpatient Rehabilitation Department * María Carranza, POLYETHYLENE BAG MACHINE OPERATOR - 10/09/2024 11:14 AM EST Images from the original note were not included. Vascular Surgery Progress Note Geovanna Dixon Jr. is a 49 y.o. male with history of HTN, HLD, NSTEMI, CAD s/p CABG (12/2011), DM, obesity, PAD s/p L iliofem endart and L fem-BK pop bypass and L 2nd toe amputation who was transferred from [facility] given concern for infected left fem-BK popliteal [...] smoking 1 week ago. He presented to [facility] on 09/26 and went to the OR [...] Daily heparin (porcine) 5,000 Units Subcutaneous Q8H [facility] lidocaine 1 patch Transdermal Q24H Operations [...] Procedure Component Value - Date/Time Blood culture [[id number]] (Abnormal) (Susceptibility) Collected: 09/26/24 1422 Lab Status: Edited Result - FINAL Specimen: Blood, Venous Updated: 10/07/24 0740 Blood Culture Methicillin Resistant Staphylococcus aureus Comment: detected by PCR Isolate saved. If future testing is required, contact the Microbiology Visitor Services Representative. Gram Stain Aerobic Bottle: Gram positive cocci in clusters Susceptibility Methicillin Resistant Staphylococcus aureus MINIMUM INHIBITORY CONCENTRATION VITEK 2 METHOD Clindamycin Resistant Daptomycin Susceptible Gentamicin Susceptible [1] Linezolid Susceptible Oxacillin Resistant Trimethoprim/Sulfa Susceptible Vancomycin Susceptible [1] Gentamicin is not appropriate for monotherapy for gram-positive infections. AFB culture [[id number]] Collected: 09/27/24 1654 Lab Status: Preliminary result Specimen: Tissue from Thigh, Left Updated: 10/05/24 1201 Acid Fast Bacilli Culture No acid fast bacilli isolated at 1 week. Acid Fast Stain No acid fast bacilli seen Blood culture [[id number]] Collected: 09/29/242123 Lab Status: Final result Specimen: Blood, Venous Updated: 10/04/24 2301 Blood Culture No growth at 120 hours Blood culture [[id number]] Collected: 09/29/242123 Lab Status: Final result Specimen: Blood, Venous Updated: 10/04/24 2301 Blood Culture No growth at 120 hours AFB culture [[id number]] Collected: 09/26/24 1702 Lab Status: Preliminary result Specimen: Abscess from Knee, Left Updated: 10/04/24 1201 Acid Fast Bacilli Culture No acid fast bacilli isolated at 1 week. Acid Fast Stain No acid fast bacilli seen Blood culture [[id number]] Collected: 09/28/24 1749 Lab Status: Final result [...] toe amputation who was transferred from [facility] given concern for infected left fem-BK popliteal PTFE bypass. He is now s/p an explantof an infected left femoral-below knee popliteal artery bypass graft (09/26), I/D groin abscess (), L GSV harvest, vein patch angioplasty, L PARIMUTUEL TICKET CASHIER and BK pop w/ sartorius flap L fem, I/D, 09/29 L sartorius flap revision, vac change. 10/09/24: Progressing well post surgically. Will pull medial thigh drain today, retain sartorius flap drain along with wound vac x 3 sponges ([facility] has approved for home vac) and [...] PRN PICC dressing change completed as per [facility] protocol. Positive pressure displacement connector (Max Plus) [...] toe amputation who was transferred from [facility] given concern for infected left fem-BK popliteal [...] smoking 1 week ago. He presented to [facility] on 09/26 and went to the OR [...] Procedure Component Value - Date/Time Blood culture [[id number]] (Abnormal) (Susceptibility) Collected: 09/26/24 1422 Lab Status: Edited Result - FINAL Specimen: Blood, Venous Updated: 10/07/24 0740 Blood Culture Methicillin Resistant Staphylococcus aureus Comment: detected by PCR Isolate saved. If future testing is required, contact the Microbiology Visitor Services Representative. Gram Stain Aerobic Bottle: Gram positive cocci in clusters Susceptibility Methicillin Resistant Staphylococcus aureus MINIMUM INHIBITORY CONCENTRATION VITEK 2 METHOD Clindamycin Resistant Daptomycin Susceptible Gentamicin Susceptible [1] Linezolid Susceptible Oxacillin Resistant Trimethoprim/Sulfa Susceptible Vancomycin Susceptible [1] Gentamicin is not appropriate for monotherapy for gram-positive infections. AFB culture [[id number]] Collected: 09/27/24 165 Lab Status: Preliminary result Specimen: Tissue from Thigh, Left Updated: 10/05/24 1201 Acid Fast Bacilli Culture No acid fast bacilli isolated at 1 week. Acid Fast Stain No acid fast bacilli seen Blood culture [[id number]] Collected: 09/29/242123 Lab Status: Final result Specimen: Blood, Venous Updated: 10/04/24 2301 Blood Culture No growth at 120 hours Blood culture [[id number]] Collected: 09/29/242123 Lab Status: Final result Specimen: Blood, Venous Updated: 10/04/24 2301 Blood Culture No growth at 120 hours AFB culture [[id number]] Collected: 09/26/24 1702 Lab Status: Preliminary result Specimen: Abscess from Knee, Left Updated: 10/04/24 1201 Acid Fast Bacilli Culture No acid fast bacilli isolated at 1 week. Acid Fast Stain No acid fast bacilli seen Blood culture [[id number]] Collected: 09/28/24 1749 Lab Status: Final result Specimen: Blood, Venous Updated: 10/03/24 1901 Blood Culture No growth at 120 hours Blood culture [[id number]] (Abnormal) Collected: 09/27/24 2133 Lab Status: Final result Specimen: Blood, Venous Updated: 10/02/24 0804 Blood Culture Methicillin Resistant Staphylococcus aureus Comment: Susceptibilities previously reported. Gram Stain Aerobic Bottle: Gram positive cocci in clusters Tissue Culture, Aerobic & Anaerobic [[id number]] Collected: 09/27/24 165 Lab Status: Final result Specimen: Tissue from Thigh, Left Updated: 10/01/24 1554 Narrative: The following orders were created for panel order Tissue Culture, Aerobic & Anaerobic. Procedure Abnormality Status --------- ------ Tissue Culture, Aerobic ...[[id number]] Anaerobic Culture[[id number]] Final result Please view results for these tests on the individual orders. Anaerobic Culture [[id number]] Collected: 09/27/241653 Lab Status: Final result Specimen: Tissue from Thigh, Left Updated: 10/01/24 1554 Anaerobic Culture No anaerobic organisms isolated Tissue Culture, Aerobic Only [[id number]] (Abnormal) (Susceptibility) Collected: 09/27/241653 Lab Status: Final [...] toe amputation who was transferred from [facility] given concern for infected left fem-BK popliteal PTFE bypass. He is now s/p an explantof an infected left femoral-below knee popliteal artery bypass graft (09/26), I/D groin abscess (), L GSV harvest, vein patch angioplasty, L PARIMUTUEL TICKET CASHIER and BK pop w/ sartorius flap L [...] 81mg daily Vibha Benson APRN 10/08/2024 Pager: [phone] * Vibha Benson APRN - 10/07/2024 8:52 AM EST Images from the original note were not included. Vascular Surgery Progress Note Geovanna Dixon Jr. is a 49 y.o. male with history of HTN, HLD, NSTEMI, CAD s/p CABG (12/2011), DM, obesity, PAD s/p L iliofem endart and L fem-BK pop bypass and L 2nd toe amputation who was transferred from [facility] given concern for infected left fem-BK popliteal [...] smoking 1 week ago. He presented to [facility] on 09/26 and went to the OR [...] Procedure Component Value - Date/Time Blood culture [[id number]] (Abnormal) (Susceptibility) Collected: 09/26/24 1422 Lab Status: Edited Result - FINAL Specimen: Blood, Venous Updated: 10/07/24 0740 Blood Culture Methicillin Resistant Staphylococcus aureus Comment: detected by PCR Isolate saved. If future testing is required, contact the Microbiology Visitor Services Representative. Gram Stain Aerobic Bottle: Gram positive cocci in clusters Susceptibility Methicillin Resistant Staphylococcus aureus MINIMUM INHIBITORY CONCENTRATION VITEK 2 METHOD Clindamycin Resistant Daptomycin Susceptible Gentamicin Susceptible [1] Linezolid Susceptible Oxacillin Resistant Trimethoprim/Sulfa Susceptible Vancomycin Susceptible [1] Gentamicin is not appropriate for monotherapy for gram-positive infections. AFB culture [[id number]] Collected: 09/27/24 165 Lab Status: Preliminary result Specimen: Tissue from Thigh, Left Updated: 10/05/24 1201 Acid Fast Bacilli Culture No acid fast bacilli isolated at 1 week. Acid Fast Stain No acid fast bacilli seen Blood culture [[id number]] Collected: 09/29/242123 Lab Status: Final result Specimen: Blood, Venous Updated: 10/04/24 2301 Blood Culture No growth at 120 hours Blood culture [[id number]] Collected: 09/29/242123 Lab Status: Final result Specimen: Blood, Venous Updated: 10/04/24 2301 Blood Culture No growth at 120 hours AFB culture [[id number]] Collected: 09/26/24 1702 Lab Status: Preliminary result Specimen: Abscess from Knee, Left Updated: 10/04/24 1201 Acid Fast Bacilli Culture No acid fast bacilli isolated at 1 week. Acid Fast Stain No acid fast bacilli seen Blood culture [[id number]] Collected: 09/28/24 1749 Lab Status: Final result Specimen: Blood, Venous Updated: 10/03/24 1901 Blood Culture No growth at 120 hours Blood culture [[id number]] (Abnormal) Collected: 09/27/24 2133 Lab Status: Final result Specimen: Blood, Venous Updated: 10/02/24 0804 Blood Culture Methicillin Resistant Staphylococcus aureus Comment: Susceptibilities previously reported. Gram Stain Aerobic Bottle: Gram positive cocci in clusters Tissue Culture, Aerobic & Anaerobic [[id number]] Collected: 09/27/24 165 Lab Status: Final result Specimen: Tissue from Thigh, Left Updated: 10/01/24 1554 Narrative: The following orders were created for panel order Tissue Culture, Aerobic & Anaerobic. Procedure Abnormality Status --------- ------ Tissue Culture, Aerobic ...[[id number]] Anaerobic Culture[[id number]] Final result Please view results for these tests on the individual orders. Anaerobic Culture [[id number]] Collected: 09/27/241653 Lab Status: Final result Specimen: Tissue from Thigh, Left Updated: 10/01/24 155 Anaerobic Culture No anaerobic organisms isolated Tissue Culture, Aerobic Only [[id number]] (Abnormal) (Susceptibility) Collected: 09/27/241653 Lab Status: Final [...] is considered susceptible to doxycycline. Blood culture [[id number]] (Abnormal) Collected: 09/26/24 1845 Lab Status: Final result Specimen: Blood, Venous Updated: 10/01/24 0658 Blood Culture Methicillin Resistant Staphylococcus aureus Comment: isolated. Susceptibilities previously reported. Gram Stain Aerobic Bottle: Gram positive cocci in clusters Abscess/Wound Aspirate Culture, Aerobic & Anaerobic [[id number]] (Abnormal) Collected: 09/26/241649 Lab Status: Final result Specimen: Abscess from Groin, Left Updated: 09/30/24 1551 Narrative: The following orders were created for panel order Abscess/Wound Aspirate Culture, Aerobic & Anaerobic. Procedure Abnormality Status --------- ------ Abscess/Wound Aspirate C...[[id number]] Abnormal Final result Anaerobic Culture[[id number]] Final result Please view results for these tests on the individual orders. Anaerobic Culture [[id number]] Collected: 09/26/241649 Lab Status: Final result Specimen: Abscess from Groin, Left Updated: 09/30/24 1551 Anaerobic Culture No anaerobic organisms isolated Abscess/Wound Aspirate Culture, Aerobic & Anaerobic [[id number]] (Abnormal) Collected: 09/26/24 1702 Lab Status: Final result Specimen: Abscess from Knee, Left Updated: 09/30/24 1551 Narrative: The following orders were created for panel order Abscess/Wound Aspirate Culture, Aerobic & Anaerobic. Procedure Abnormality Status --------- ------ Abscess/Wound Aspirate C...[[id number]] Abnormal Final result Anaerobic Culture[[id number]] Final result Please view results for these tests on the individual orders. Anaerobic Culture [[id number]] Collected: 09/26/24 1702 Lab Status: Final result Specimen: Abscess from Knee, Left Updated: 09/30/24 1551 Anaerobic Culture No anaerobic organisms isolated Sonicated Tissue/Implant Culture [[id number]] (Abnormal) Collected: 09/26/24 1716 Lab Status: Final result Specimen: Vascular Graft from Leg, Left Updated: 09/30/24 1349 Sonicated Tissue/Implant Culture Methicillin Resistant Staphylococcus aureus Comment: isolated from broth culture. Susceptibilities previously reported. Abscess/Wound Aspirate Culture, Aerobic Only [[id number]] (Abnormal) (Susceptibility) Collected: 09/26/24 170 Lab Status: [...] to doxycycline. Abscess/Wound Aspirate Culture, Aerobic Only [[id number]] (Abnormal) (Susceptibility) Collected: 09/26/24 1650 Lab Status: [...] toe amputation who was transferred from [facility] given concern for infected left fem-BK popliteal PTFE bypass. He is now s/p an explantof an infected left femoral-below knee popliteal artery bypass graft (09/26), I/D groin abscess (), L GSV harvest, vein patch angioplasty, L PARIMUTUEL TICKET CASHIER and BK pop w/ sartorius flap L [...] 81mg daily Vibha Benson APRN 10/07/2024 Pager: [phone] * Karina-Jessica Mcrae, PT - 10/06/2024 3:21 PM EST 10/06/24 0358 Evaluation & Treatment Document Type contact Comment, [...] toe amputation who was transferred from [facility] given concern for infected left fem-BK popliteal [...] smoking 1 week ago. He presented to [facility] on 09/26 and went to the OR [...] Procedure Component Value - Date/Time AFB culture [[id number]] Collected: 09/27/241653 Lab Status: Preliminary result Specimen: Tissue from Thigh, Left Updated: 10/05/24 1201 Acid Fast Bacilli Culture No acid fast bacilli isolated at 1 week. Acid Fast Stain No acid fast bacilli seen Blood culture [[id number]] Collected: 09/29/242123 Lab Status: Final result Specimen: Blood, Venous Updated: 10/04/24 2301 Blood Culture No growth at 120 hours Blood culture [[id number]] Collected: 09/29/242123 Lab Status: Final result Specimen: Blood, Venous Updated: 10/04/24 2301 Blood Culture No growth at 120 hours AFB culture [[id number]] Collected: 09/26/24 1702 Lab Status: Preliminary result Specimen: Abscess from Knee, Left Updated: 10/04/24 1201 Acid Fast Bacilli Culture No acid fast bacilli isolated at 1 week. Acid Fast Stain No acid fast bacilli seen Blood culture [[id number]] Collected: 09/28/24 1749 Lab Status: Final result Specimen: Blood, Venous Updated: 10/03/24 1901 Blood Culture No growth at 120 hours Blood culture [[id number]] (Abnormal) Collected: 09/27/242132 Lab Status: Final result Specimen: Blood, Venous Updated: 10/02/24 0804 Blood Culture Methicillin Resistant Staphylococcus aureus Comment: Susceptibilities previously reported. Gram Stain Aerobic Bottle: Gram positive cocci in clusters Tissue Culture, Aerobic & Anaerobic [[id number]] Collected: 09/27/241653 Lab Status: Final result Specimen: Tissue from Thigh, Left Updated: 10/01/24 1554 Narrative: The following orders were created for panel order Tissue Culture, Aerobic & Anaerobic. Procedure Abnormality Status --------- ------ Tissue Culture, Aerobic ...[[id number]] Anaerobic Culture[[id number]] Final result Please view results for these tests on the individual orders. Anaerobic Culture [[id number]] Collected: 09/27/241653 Lab Status: Final result Specimen: Tissue from Thigh, Left Updated: 10/01/24 1554 Anaerobic Culture No anaerobic organisms isolated Tissue Culture, Aerobic Only [[id number]] (Abnormal) (Susceptibility) Collected: 09/27/24 1654 Lab Status: [...] is considered susceptible to doxycycline. Blood culture [[id number]] (Abnormal) (Susceptibility) Collected: 09/26/24 1422 Lab Status: Edited Specimen: Blood, Venous Updated: 10/01/24 0658 Blood Culture Methicillin Resistant Staphylococcus aureus Comment: detected by PCR Isolate saved. If future testing is required, contact the Microbiology Visitor Services Representative. Gram Stain Aerobic Bottle: Gram positive cocci in clusters Susceptibility Methicillin Resistant Staphylococcus aureus VITEK 2 METHOD Clindamycin Resistant Gentamicin Susceptible [1] Linezolid Susceptible Oxacillin Resistant Trimethoprim/Sulfa Susceptible Vancomycin Susceptible [1] Gentamicin is not appropriate for monotherapy for gram-positive infections. Blood culture [[id number]] (Abnormal) Collected: 09/26/24 1845 Lab Status: Final result Specimen: Blood, Venous Updated: 10/01/24 0658 Blood Culture Methicillin Resistant Staphylococcus aureus Comment: isolated. Susceptibilities previously reported. Gram Stain Aerobic Bottle: Gram positive cocci in clusters Abscess/Wound Aspirate Culture, Aerobic & Anaerobic [[id number]] (Abnormal) Collected: 09/26/24 165 Lab Status: Final result Specimen: Abscess from Groin, Left Updated: 09/30/24 1551 Narrative: The following orders were created for panel order Abscess/Wound Aspirate Culture, Aerobic & Anaerobic. Procedure Abnormality Status --------- ------ Abscess/Wound Aspirate C...[[id number]] Abnormal Final result Anaerobic Culture[[id number]] Final result Please view results for these tests on the individual orders. Anaerobic Culture [[id number]] Collected: 09/26/24 165 Lab Status: Final result Specimen: Abscess from Groin, Left Updated: 09/30/24 1551 Anaerobic Culture No anaerobic organisms isolated Abscess/Wound Aspirate Culture, Aerobic & Anaerobic [[id number]] (Abnormal) Collected: 09/26/24 1702 Lab Status: Final result Specimen: Abscess from Knee, Left Updated: 09/30/24 1551 Narrative: The following orders were created for panel order Abscess/Wound Aspirate Culture, Aerobic & Anaerobic. Procedure Abnormality Status --------- ------ Abscess/Wound Aspirate C...[[id number]] Abnormal Final result Anaerobic Culture[[id number]] Final result Please view results for these tests on the individual orders. Anaerobic Culture [[id number]] Collected: 09/26/24 170 Lab Status: Final result Specimen: Abscess from Knee, Left Updated: 09/30/24 1551 Anaerobic Culture No anaerobic organisms isolated Sonicated Tissue/Implant Culture [[id number]] (Abnormal) Collected: 09/26/24 1716 Lab Status: Final result Specimen: Vascular Graft from Leg, Left Updated: 09/30/24 1349 Sonicated Tissue/Implant Culture Methicillin Resistant Staphylococcus aureus Comment: isolated from broth culture. Susceptibilities previously reported. Abscess/Wound Aspirate Culture, Aerobic Only [[id number]] (Abnormal) (Susceptibility) Collected: 09/26/24 170 Lab Status: [...] to doxycycline. Abscess/Wound Aspirate Culture, Aerobic Only [[id number]] (Abnormal) (Susceptibility) Collected: 09/26/24 1650 Lab Status: [...] toe amputation who was transferred from [facility] given concern for infected left fem-BK popliteal PTFE bypass. He is now s/p an explantof an infected left femoral-below knee popliteal artery bypass graft (09/26), I/D groin abscess (), L GSV harvest, vein patch angioplasty, L PARIMUTUEL TICKET CASHIER and BK pop w/ sartorius flap L [...] 81mg daily Benjamin Iniguez MD 10/06/2024 Pager: [phone] * Benjamin Iniguez MD - 10/05/2024 7:42 AM EST Images from the original note were not included. Vascular Surgery Progress Note Geovanna Dixon Jr. is a 49 y.o. male with history of HTN, HLD, NSTEMI, CAD s/p CABG (12/2011), DM, obesity, PAD s/p L iliofem endart and L fem-BK pop bypass and L 2nd toe amputation who was transferred from [facility] given concern for infected left fem-BK popliteal [...] smoking 1 week ago. He presented to [facility] on 09/26 and went to the OR [...] Procedure Component Value - Date/Time Blood culture [[id number]] Collected: 09/29/242123 Lab Status: Final result Specimen: Blood, Venous Updated: 10/04/242300 Blood Culture No growth at 120 hours Blood culture [[id number]] Collected: 09/29/242123 Lab Status: Final result Specimen: Blood, Venous Updated: 10/04/24 230 Blood Culture No growth at 120 hours AFB culture [[id number]] Collected: 09/26/24 1702 Lab Status: Preliminary result Specimen: Abscess from Knee, Left Updated: 10/04/24 1201 Acid Fast Bacilli Culture No acid fast bacilli isolated at 1 week. Acid Fast Stain No acid fast bacilli seen Blood culture [[id number]] Collected: 09/28/24 1749 Lab Status: Final result Specimen: Blood, Venous Updated: 10/03/24 1901 Blood Culture No growth at 120 hours Blood culture [[id number]] (Abnormal) Collected: 09/27/242132 Lab Status: Final result Specimen: Blood, Venous Updated: 10/02/24 0804 Blood Culture Methicillin Resistant Staphylococcus aureus Comment: Susceptibilities previously reported. Gram Stain Aerobic Bottle: Gram positive cocci in clusters Tissue Culture, Aerobic & Anaerobic [[id number]] Collected: 09/27/241653 Lab Status: Final result Specimen: Tissue from Thigh, Left Updated: 10/01/24 1554 Narrative: The following orders were created for panel order Tissue Culture, Aerobic & Anaerobic. Procedure Abnormality Status --------- ------ Tissue Culture, Aerobic ...[[id number]] Anaerobic Culture[[id number]] Final result Please view results for these tests on the individual orders. Anaerobic Culture [[id number]] Collected: 09/27/241653 Lab Status: Final result Specimen: Tissue from Thigh, Left Updated: 10/01/24 1554 Anaerobic Culture No anaerobic organisms isolated Tissue Culture, Aerobic Only [[id number]] (Abnormal) (Susceptibility) Collected: 09/27/241653 Lab Status: Final [...] is considered susceptible to doxycycline. Blood culture [[id number]] (Abnormal) (Susceptibility) Collected: 09/26/24 1422 Lab Status: Final result Specimen: Blood, Venous Updated: 10/01/24 0658 Blood Culture Methicillin Resistant Staphylococcus aureus Comment: detected by PCR Isolate saved. If future testing is required, contact the Microbiology Visitor Services Representative. Gram Stain Aerobic Bottle: Gram positive cocci in clusters Susceptibility Methicillin Resistant Staphylococcus aureus VITEK 2 METHOD Clindamycin Resistant Gentamicin Susceptible [1] Linezolid Susceptible Oxacillin Resistant Trimethoprim/Sulfa Susceptible Vancomycin Susceptible [1] Gentamicin is not appropriate for monotherapy for gram-positive infections. Blood culture [[id number]] (Abnormal) Collected: 09/26/24 1845 Lab Status: Final result Specimen: Blood, Venous Updated: 10/01/24 0658 Blood Culture Methicillin Resistant Staphylococcus aureus Comment: isolated. Susceptibilities previously reported. Gram Stain Aerobic Bottle: Gram positive cocci in clusters Abscess/Wound Aspirate Culture, Aerobic & Anaerobic [[id number]] (Abnormal) Collected: 09/26/241649 Lab Status: Final result Specimen: Abscess from Groin, Left Updated: 09/30/24 1551 Narrative: The following orders were created for panel order Abscess/Wound Aspirate Culture, Aerobic & Anaerobic. Procedure Abnormality Status --------- ------ Abscess/Wound Aspirate C...[[id number]] Abnormal Final result Anaerobic Culture[[id number]] Final result Please view results for these tests on the individual orders. Anaerobic Culture [[id number]] Collected: 09/26/241649 Lab Status: Final result Specimen: Abscess from Groin, Left Updated: 09/30/24 1551 Anaerobic Culture No anaerobic organisms isolated Abscess/Wound Aspirate Culture, Aerobic & Anaerobic [[id number]] (Abnormal) Collected: 09/26/241701 Lab Status: Final result Specimen: Abscess from Knee, Left Updated: 09/30/24 1551 Narrative: The following orders were created for panel order Abscess/Wound Aspirate Culture, Aerobic & Anaerobic. Procedure Abnormality Status --------- ------ Abscess/Wound Aspirate C...[[id number]] Abnormal Final result Anaerobic Culture[[id number]] Final result Please view results for these tests on the individual orders. Anaerobic Culture [[id number]] Collected: 09/26/241701 Lab Status: Final result Specimen: Abscess from Knee, Left Updated: 09/30/24 1551 Anaerobic Culture No anaerobic organisms isolated Sonicated Tissue/Implant Culture [[id number]] (Abnormal) Collected: 09/26/24 1716 Lab Status: Final result Specimen: Vascular Graft from Leg, Left Updated: 09/30/24 1349 Sonicated Tissue/Implant Culture Methicillin Resistant Staphylococcus aureus Comment: isolated from broth culture. Susceptibilities previously reported. Abscess/Wound Aspirate Culture, Aerobic Only [[id number]] (Abnormal) (Susceptibility) Collected: 09/26/241701 Lab Status: Final [...] to doxycycline. Abscess/Wound Aspirate Culture, Aerobic Only [[id number]] (Abnormal) (Susceptibility) Collected: 09/26/24 165 Lab Status: [...] is considered susceptible to doxycycline. AFB culture [[id number]] Collected: 09/27/241653 Lab Status: Preliminary result Specimen: Tissue from Thigh, Left Updated: 09/29/24 1201 Acid Fast Bacilli Culture No acid fast bacilli isolated to date. Acid Fast Stain No acid fast bacilli seen Fungus culture [[id number]] Collected: 09/27/241653 Lab Status: Preliminary result Specimen: [...] toe amputation who was transferred from [facility] given concern for infected left fem-BK popliteal PTFE bypass. He is now s/p an explantof an infected left femoral-below knee popliteal artery bypass graft (09/26), I/D groin abscess (), L GSV harvest, vein patch angioplasty, L PARIMUTUEL TICKET CASHIER and BK pop w/ sartorius flap L [...] 81mg daily Benjamin Iniguez MD 10/05/2024 Pager: [phone] Associated attestation - Hayley Torres MD - [...] aspirate- MRSA Antimicrobials: Vancomycin- Imaging/diagnostics: CT lower knijhchty89/20 IMPRESSION: 1. Interval explant of LEFT femoral [...] male who underwent a left lower extremity fnbswim-bv-vwmyu-kneepopliteal artery bypass on August 01, 2024, and [...] concerns. Please page ID John team (pager [phone]) with questions or concerns. Lynne Leavitt MD Fellow, Infectious Disease Pager: [phone] Epic Chat 10/02/2024 This note was created using [employer] voice recognition software. Associated attestation - Amaya [...] Procedure Component Value - Date/Time Blood culture [[id number]] Collected: 09/29/242123 Lab Status: Final result Specimen: Blood, Venous Updated: 10/04/24 2301 Blood Culture No growth at 120 hours Blood culture [[id number]] Collected: 09/29/242123 Lab Status: Final result Specimen: Blood, Venous Updated: 10/04/24 2301 Blood Culture No growth at 120 hours AFB culture [[id number]] Collected: 09/26/24 170 Lab Status: Preliminary result Specimen: Abscess from Knee, Left Updated: 10/04/24 1201 Acid Fast Bacilli Culture No acid fast bacilli isolated at 1 week. Acid Fast Stain No acid fast bacilli seen Blood culture [[id number]] Collected: 09/28/24 1749 Lab Status: Final result Specimen: Blood, Venous Updated: 10/03/24 1901 Blood Culture No growth at 120 hours Blood culture [[id number]] (Abnormal) Collected: 09/27/242132 Lab Status: Final result Specimen: Blood, Venous Updated: 10/02/24 0804 Blood Culture Methicillin Resistant Staphylococcus aureus Comment: Susceptibilities previously reported. Gram Stain Aerobic Bottle: Gram positive cocci in clusters Tissue Culture, Aerobic & Anaerobic [[id number]] Collected: 09/27/241653 Lab Status: Final result Specimen: Tissue from Thigh, Left Updated: 10/01/24 155 Narrative: The following orders were created for panel order Tissue Culture, Aerobic & Anaerobic. Procedure Abnormality Status --------- ------ Tissue Culture, Aerobic ...[[id number]] Anaerobic Culture[[id number]] Final result Please view results for these tests on the individual orders. Anaerobic Culture [[id number]] Collected: 09/27/241653 Lab Status: Final result Specimen: Tissue from Thigh, Left Updated: 10/01/24 155 Anaerobic Culture No anaerobic organisms isolated Tissue Culture, Aerobic Only [[id number]] (Abnormal) (Susceptibility) Collected: 09/27/24 1654 Lab Status: [...] is considered susceptible to doxycycline. Blood culture [[id number]] (Abnormal) (Susceptibility) Collected: 09/26/24 1422 Lab Status: Final result Specimen: Blood, Venous Updated: 10/01/24 0658 Blood Culture Methicillin Resistant Staphylococcus aureus Comment: detected by PCR Isolate saved. If future testing is required, contact the Microbiology Visitor Services Representative. Gram Stain Aerobic Bottle: Gram positive cocci in clusters Susceptibility Methicillin Resistant Staphylococcus aureus VITEK 2 METHOD Clindamycin >=8.0 ug/ml Resistant Gentamicin <=0.5 ug/ml Susceptible [1] Linezolid 2.0 ug/ml Susceptible Oxacillin >=4.0 ug/ml Resistant Trimethoprim/Sulfa <=10.0 ug/ml Susceptible Vancomycin 1.0 ug/ml Susceptible [1] Gentamicin is not appropriate for monotherapy for gram-positive infections. Blood culture [[id number]] (Abnormal) Collected: 09/26/24 1845 Lab Status: Final result Specimen: Blood, Venous Updated: 10/01/24 0658 Blood Culture Methicillin Resistant Staphylococcus aureus Comment: isolated. Susceptibilities previously reported. Gram Stain Aerobic Bottle: Gram positive cocci in clusters Abscess/Wound Aspirate Culture, Aerobic & Anaerobic [[id number]] (Abnormal) Collected: 09/26/24 1650 Lab Status: Final result Specimen: Abscess from Groin, Left Updated: 09/30/24 1551 Narrative: The following orders were created for panel order Abscess/Wound Aspirate Culture, Aerobic & Anaerobic. Procedure Abnormality Status --------- ------ Abscess/Wound Aspirate C...[[id number]] Abnormal Final result Anaerobic Culture[[id number]] Final result Please view results for these tests on the individual orders. Anaerobic Culture [[id number]] Collected: 09/26/24 1650 Lab Status: Final result Specimen: Abscess from Groin, Left Updated: 09/30/24 1551 Anaerobic Culture No anaerobic organisms isolated Abscess/Wound Aspirate Culture, Aerobic & Anaerobic [[id number]] (Abnormal) Collected: 09/26/24 1702 Lab Status: Final result Specimen: Abscess from Knee, Left Updated: 09/30/24 1551 Narrative: The following orders were created for panel order Abscess/Wound Aspirate Culture, Aerobic & Anaerobic. Procedure Abnormality Status --------- ------ Abscess/Wound Aspirate C...[[id number]] Abnormal Final result Anaerobic Culture[[id number]] Final result Please view results for these tests on the individual orders. Anaerobic Culture [[id number]] Collected: 09/26/24 1702 Lab Status: Final result Specimen: Abscess from Knee, Left Updated: 09/30/24 1551 Anaerobic Culture No anaerobic organisms isolated Sonicated Tissue/Implant Culture [[id number]] (Abnormal) Collected: 09/26/24 1716 Lab Status: Final result Specimen: Vascular Graft from Leg, Left Updated: 09/30/24 1349 Sonicated Tissue/Implant Culture Methicillin Resistant Staphylococcus aureus Comment: isolated from broth culture. Susceptibilities previously reported. Abscess/Wound Aspirate Culture, Aerobic Only [[id number]] (Abnormal) (Susceptibility) Collected: 09/26/24 1702 Lab Status: [...] to doxycycline. Abscess/Wound Aspirate Culture, Aerobic Only [[id number]] (Abnormal) (Susceptibility) Collected: 09/26/24 165 Lab Status: [...] is considered susceptible to doxycycline. AFB culture [[id number]] Collected: 09/27/241653 Lab Status: Preliminary result Specimen: Tissue from Thigh, Left Updated: 09/29/24 1201 Acid Fast Bacilli Culture No acid fast bacilli isolated to date. Acid Fast Stain No acid fast bacilli seen Fungus culture [[id number]] Collected: 09/27/241653 Lab Status: Preliminary result Specimen: Tissue from Thigh, Left Updated: 09/28/24 0748 Fungus Culture No fungus isolated to date EKG/echo: reviewed Imaging: [email or web address] External records in - [facility]: reviewed Category 3: The ID consult [...] for consulting infectious diseases. Amaya Hernandez MD, [facility] Infectious Diseases Staff Physician * Vibha Guerrero [...] Diet NPO Monitoring: Q4 Fawn Cunningham APRN [facility] Endocrinology Diabetes Management Pager [phone] Weekends please page [phone] minutes were spent over the course [...] toe amputation who was transferred from [facility] given concern for infected left fem-BK popliteal [...] smoking 1 week ago. He presented to [facility] on 09/26 and went to the OR [...] TID WC acetaminophen 975 mg Oral Q6H [facility] atorvastatin 80 mg Oral QPM aspirin EC 81 mg Oral Daily methylphenidate 20 mg Oral TID pantoprazole EC 40 mg Oral Daily senna-docusate 2 tablet Oral BID venlafaxine XR 225 mg Oral Daily heparin (porcine) 5,000 Units Subcutaneous Q8H [facility] lidocaine 1 patch Transdermal Q24H Operations [...] Procedure Component Value - Date/Time Blood culture [[id number]] Collected: 09/29/242123 Lab Status: Preliminary result Specimen: Blood, Venous Updated: 10/03/24 230 Blood Culture No growth at 96 hours Blood culture [[id number]] Collected: 09/29/242123 Lab Status: Preliminary result Specimen: Blood, Venous Updated: 10/03/24 2301 Blood Culture No growth at 96 hours Blood culture [[id number]] Collected: 09/28/24 1749 Lab Status: Final result Specimen: Blood, Venous Updated: 10/03/24 1901 Blood Culture No growth at 120 hours Blood culture [[id number]] (Abnormal) Collected: 09/27/242132 Lab Status: Final result Specimen: Blood, Venous Updated: 10/02/24 0804 Blood Culture Methicillin Resistant Staphylococcus aureus Comment: Susceptibilities previously reported. Gram Stain Aerobic Bottle: Gram positive cocci in clusters Tissue Culture, Aerobic & Anaerobic [[id number]] Collected: 09/27/24 1654 Lab Status: Final result Specimen: Tissue from Thigh, Left Updated: 10/01/24 1554 Narrative: The following orders were created for panel order Tissue Culture, Aerobic & Anaerobic. Procedure Abnormality Status --------- ------ Tissue Culture, Aerobic ...[[id number]] Anaerobic Culture[[id number]] Final result Please view results for these tests on the individual orders. Anaerobic Culture [[id number]] Collected: 09/27/24 1654 Lab Status: Final result Specimen: Tissue from Thigh, Left Updated: 10/01/24 1554 Anaerobic Culture No anaerobic organisms isolated Tissue Culture, Aerobic Only [[id number]] (Abnormal) (Susceptibility) Collected: 09/27/24 165 Lab Status: [...] is considered susceptible to doxycycline. Blood culture [[id number]] (Abnormal) (Susceptibility) Collected: 09/26/24 1422 Lab Status: Final result Specimen: Blood, Venous Updated: 10/01/24 0658 Blood Culture Methicillin Resistant Staphylococcus aureus Comment: detected by PCR Isolate saved. If future testing is required, contact the Microbiology Visitor Services Representative. Gram Stain Aerobic Bottle: Gram positive cocci in clusters Susceptibility Methicillin Resistant Staphylococcus aureus VITEK 2 METHOD Clindamycin Resistant Gentamicin Susceptible [1] Linezolid Susceptible Oxacillin Resistant Trimethoprim/Sulfa Susceptible Vancomycin Susceptible [1] Gentamicin is not appropriate for monotherapy for gram-positive infections. Blood culture [[id number]] (Abnormal) Collected: 09/26/24 1845 Lab Status: Final result Specimen: Blood, Venous Updated: 10/01/24 0658 Blood Culture Methicillin Resistant Staphylococcus aureus Comment: isolated. Susceptibilities previously reported. Gram Stain Aerobic Bottle: Gram positive cocci in clusters Abscess/Wound Aspirate Culture, Aerobic & Anaerobic [[id number]] (Abnormal) Collected: 09/26/24 1650 Lab Status: Final result Specimen: Abscess from Groin, Left Updated: 09/30/24 1551 Narrative: The following orders were created for panel order Abscess/Wound Aspirate Culture, Aerobic & Anaerobic. Procedure Abnormality Status --------- ------ Abscess/Wound Aspirate C...[[id number]] Abnormal Final result Anaerobic Culture[[id number]] Final result Please view results for these tests on the individual orders. Anaerobic Culture [[id number]] Collected: 09/26/24 1650 Lab Status: Final result Specimen: Abscess from Groin, Left Updated: 09/30/24 1551 Anaerobic Culture No anaerobic organisms isolated Abscess/Wound Aspirate Culture, Aerobic & Anaerobic [[id number]] (Abnormal) Collected: 09/26/24 1702 Lab Status: Final result Specimen: Abscess from Knee, Left Updated: 09/30/24 1551 Narrative: The following orders were created for panel order Abscess/Wound Aspirate Culture, Aerobic & Anaerobic. Procedure Abnormality Status --------- ------ Abscess/Wound Aspirate C...[[id number]] Abnormal Final result Anaerobic Culture[[id number]] Final result Please view results for these tests on the individual orders. Anaerobic Culture [[id number]] Collected: 09/26/24 170 Lab Status: Final result Specimen: Abscess from Knee, Left Updated: 09/30/24 1551 Anaerobic Culture No anaerobic organisms isolated Sonicated Tissue/Implant Culture [[id number]] (Abnormal) Collected: 09/26/24 1716 Lab Status: Final result Specimen: Vascular Graft from Leg, Left Updated: 09/30/24 1349 Sonicated Tissue/Implant Culture Methicillin Resistant Staphylococcus aureus Comment: isolated from broth culture. Susceptibilities previously reported. Abscess/Wound Aspirate Culture, Aerobic Only [[id number]] (Abnormal) (Susceptibility) Collected: 09/26/24 1702 Lab Status: [...] to doxycycline. Abscess/Wound Aspirate Culture, Aerobic Only [[id number]] (Abnormal) (Susceptibility) Collected: 09/26/24 1650 Lab Status: [...] is considered susceptible to doxycycline. AFB culture [[id number]] Collected: 09/27/24 165 Lab Status: Preliminary result Specimen: Tissue from Thigh, Left Updated: 09/29/24 1201 Acid Fast Bacilli Culture No acid fast bacilli isolated to date. Acid Fast Stain No acid fast bacilli seen AFB culture [[id number]] Collected: 09/26/24 1702 Lab Status: Preliminary result Specimen: Abscess from Knee, Left Updated: 09/29/24 1201 Acid Fast Bacilli Culture No acid fast bacilli isolated to date. Acid Fast Stain No acid fast bacilli seen Fungus culture [[id number]] Collected: 09/27/24 1654 Lab Status: Preliminary result Specimen: Tissue from Thigh, Left Updated: 09/28/24 0748 Fungus Culture No fungus isolated to date MRSA PCR Screen [[id number]] (Abnormal) Collected: 09/27/24 0751 Lab Status: Final result Specimen: Swab from Nares Updated: 09/27/24 1156 MRSA PCR Detected Narrative: This test was performed using the Xpert MRSA NxG test kit and is run on the [employer] GeneXpert Dx System. This test is cleared by the [place] Food and Drug Administration for clinical use and its performance characteristics have been verified by the [employer] Laboratory at [facility]. New Studies: - None Assessment & Plan: Geovanna Dixon Jr. is a 49 y.o. male with a history of HTN, HLD, NSTEMI, CAD s/p CABG (12/2011), DM,obesity, PAD s/p L iliofem endart and L fem-BK pop bypass and L 2nd toe amputation who was transferred from [facility] given concern for infected left fem-BK popliteal PTFE bypass. He is now s/p an explantof an infected left femoral-below knee popliteal artery bypass graft (09/26), I/D groin abscess (), L GSV harvest, vein patch angioplasty, L PARIMUTUEL TICKET CASHIER and BK pop w/ sartorius flap L [...] 81mg daily Benjamin Iniguez MD 10/04/2024 Pager: [phone] Associated attestation - Hayley Torres MD - [...] was scheduled for a f/u nutrition evaluation. [employer]p Software Support met pt at bedside. Pt sharedthat his [...] nausea and no vomiting Last Bowel Movement: (FOUNTAIN OPERATOR- MD made aware) Patient education / questions: all nutrition related questions answered at this time Nutrition services to follow weekly through hospital course unless consulted in the interim. Linda Bates Deputy Probation Officer * Jessica Renae, PT - 10/03/2024 11:30 AM EST Physical Therapy Evaluation Patient profile: Geovanna Dixon Jr. is a 49 y.o. male with a history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 System. This test is cleared by the U.S. Food and Drug Administration for clinical use and its performance characteristics have been verified by the [facility] Genomics and [facility] Laboratory at [facility]. Fungus culture [[id number]] Collected: 09/26/24 165 Lab Status: Preliminary result Specimen: Abscess from Groin, Left Updated: 09/27/24 0727 Fungus Culture No fungus isolated to date Fungus culture [[id number]] Collected: 09/26/24 1702 Lab Status: Preliminary result [...] toe amputation who was transferred from [facility] given concern for infected left fem-BK popliteal PTFE bypass. He is now s/p an explantof an infected left femoral-below knee popliteal artery bypass graft (09/26), I/D groin abscess (), L GSV harvest, vein patch angioplasty, L PARIMUTUEL TICKET CASHIER and BK pop w/ sartorius flap L fem, I/D, 09/29 L sartorius flap revision, vac change. 10/01/24: Tolerated gentle irrigation with saline at BSD today with clear to mildly serosang drainage - no purulence or malodor noted and patient tolerated well. Will plan for NPO at [place] for return [place] tomorrow. Hypertensive overnight, home [...] - ISS - diet today; NPO at [place] for OR Tuesday 10/02 Anticoagulation: SQH TID Antiplatelet: ASA 81 María Carranza APRN 10/01/2024 Pager: [phone] * Karolyn Hudson MD - 09/30/2024 11:21 AM EST Images from the original note were not included. Vascular Surgery Progress Note Patient ID Geovanna Dixon Jr. is a 49 y.o. male with history of HTN, HLD, NSTEMI, CAD s/p CABG (12/2011), DM, obesity, PAD s/p L iliofem endart and L fem-BK pop bypass and L 2nd toe amputation who was transferred from [facility] given concern for infected left fem-BK popliteal [...] smoking 1 week ago. He presented to [facility] on 09/26 and went to the OR [...] Procedure Component Value - Date/Time Blood culture [[id number]] (Abnormal) Collected: 09/27/24 2133 Lab Status: Preliminary result Specimen: Blood, Venous Updated: 09/30/24 0718 Blood Culture Methicillin Resistant Staphylococcus aureus Comment: Susceptibilities previously reported. Gram Stain Aerobic Bottle: Gram positive cocci in clusters Blood culture [[id number]] Collected: 09/28/24 1749 Lab Status: Preliminary result Specimen: Blood, Venous Updated: 09/29/24 1901 Blood Culture No Growth at 18-24 hrs. AFB culture [[id number]] Collected: 09/27/24 1654 Lab Status: Preliminary result Specimen: Tissue from Thigh, Left Updated: 09/29/24 1201 Acid Fast Bacilli Culture No acid fast bacilli isolated to date. Acid Fast Stain No acid fast bacilli seen AFB culture [[id number]] Collected: 09/26/24 1702 Lab Status: Preliminary result Specimen: Abscess from Knee, Left Updated: 09/29/24 1201 Acid Fast Bacilli Culture No acid fast bacilli isolated to date. Acid Fast Stain No acid fast bacilli seen Sonicated Tissue/Implant Culture [[id number]] (Abnormal) Collected: 09/26/24 1716 Lab Status: Preliminary result Specimen: Vascular Graft from Leg, Left Updated: 09/29/24 1132 Sonicated Tissue/Implant Culture Methicillin Resistant Staphylococcus aureus Comment: isolated from broth culture. Susceptibilities previously reported. Tissue Culture, Aerobic Only [[id number]] (Abnormal) (Susceptibility) Collected: 09/27/24 1654 Lab Status: [...] is considered susceptible to doxycycline. Blood culture [[id number]] (Abnormal) Collected: 09/26/24 1845 Lab Status: Preliminary result Specimen: Blood, Venous Updated: 09/29/24 0719 Blood Culture Methicillin Resistant Staphylococcus aureus Comment: isolated. Susceptibilities previously reported. Gram Stain Aerobic Bottle: Gram positive cocci in clusters Blood culture [[id number]] (Abnormal) (Susceptibility) Collected: 09/26/24 1422 Lab Status: Preliminary result Specimen: Blood, Venous Updated: 09/29/24 0717 Blood Culture Methicillin Resistant Staphylococcus aureus Comment: detected by PCR Isolate saved. If future testing is required, contact the Microbiology Visitor Services Representative. Gram Stain Aerobic Bottle: Gram positive cocci in clusters Susceptibility Methicillin Resistant Staphylococcus aureus VITEK 2 METHOD Clindamycin Resistant Gentamicin Susceptible [1] Linezolid Susceptible Oxacillin Resistant Trimethoprim/Sulfa Susceptible Vancomycin Susceptible [1] Gentamicin is not appropriate for monotherapy for gram-positive infections. Anaerobic Culture [[id number]] Collected: 09/27/24 1654 Lab Status: Preliminary result Specimen: Tissue from Thigh, Left Updated: 09/28/24 1355 Anaerobic Culture No anaerobic organisms isolated to date Abscess/Wound Aspirate Culture, Aerobic Only [[id number]] (Abnormal) (Susceptibility) Collected: 09/26/24 1702 Lab Status: [...] to doxycycline. Abscess/Wound Aspirate Culture, Aerobic Only [[id number]] (Abnormal) (Susceptibility) Collected: 09/26/241649 Lab Status: Preliminary [...] is considered susceptible to doxycycline. Fungus culture [[id number]] Collected: 09/27/241653 Lab Status: Preliminary result Specimen: Tissue from Thigh, Left Updated: 09/28/24 0748 Fungus Culture No fungus isolated to date MRSA PCR Screen [[id number]] (Abnormal) Collected: 09/27/24 0751 Lab Status: Final result Specimen: Swab from Nares Updated: 09/27/24 1156 MRSA PCR Detected Narrative: This test was performed using the Xpert MRSA NxG test kit and is run on the [employer] GeneXpert Dx System. This test is cleared by the U.S. Food and Drug Administration for clinical use and its performance characteristics have been verified by the Clinical Genomics and [facility] Technology Laboratory at [facility]. Anaerobic Culture [[id number]] Collected: 09/26/241649 Lab Status: Preliminary result Specimen: Abscess from Groin, Left Updated: 09/27/24 1142 Anaerobic Culture No anaerobic organisms isolated to date Anaerobic Culture [[id number]] Collected: 09/26/24 1702 Lab Status: Preliminary result Specimen: Abscess from Knee, Left Updated: 09/27/24 1142 Anaerobic Culture No anaerobic organisms isolated to date Fungus culture [[id number]] Collected: 09/26/241649 Lab Status: Preliminary result Specimen: Abscess from Groin, Left Updated: 09/27/24726 Fungus Culture No fungus isolated to date Fungus culture [[id number]] Collected: 09/26/24 1702 Lab Status: Preliminary result Specimen: Abscess from Knee, Left Updated: 09/27/24726 Fungus Culture No fungus isolated to date New Studies Results for orders placed or performed during the hospital encounter of 09/26/[address] Request For [address]nd Read CT Lower Extremity (Exam End: 09/26/2024 1:50 PM) Result Value WORKSTATION ID [id number] Impression 1. There is a left femoral [...] questions please contact the health health care coach that requested your imaging first. Electronically signed by: Lisette Bruno MD, [facility] ([phone]), at 09/26/2024 3:[address] Lower Extremity w Contrast Left (Exam End: 09/27/2024 9:16 AM) Result Value WORKSTATION ID [id number] Impression IMPRESSION: 1. Interval explant of LEFT [...] questions please contact the health health care coach that requested your imaging first. 09/28 ABIs [...] toe amputation who was transferred from [facility] given concern for infected left fem-BK popliteal [...] Labs 09/28/24 1516 PHART 7.42 PO2ART 103 [id number] 39 LACTATEART 1.1 BEART 0.2 Is this [...] 1643 PHART 7.42 7.38 PO2ART 103 96 HWH4IZS 39 41 LACTATEART 1.1 1.7 BEART 0.2 [...] Thank you, Renea Nunez, MS, RD, LD, [facility] Clinical Nutrition * Maryia Shi RN - 09/28/2024 11:01 PM EST [...] Diet CC Monitoring: Q4 Fawn Cunningham APRN [facility] Endocrinology Diabetes Management Pager [phone] Weekends please page [phone] 35 minutes were spent over the course [...] Labs 09/26/24 1643 PHART 7.38 PO2ART 96 [id number] 41 LACTATEART 1.7 BEART -1.4 Is this [...] toe amputation who was transferred from [facility] given concern for infected left fem-BK popliteal [...] smoking 1 week ago. He presented to [facility] on 09/26 and went to the OR [...] Q8H heparin (porcine) 5,000 Units Subcutaneous Q8H [facility] lidocaine 1 patch Transdermal Q24H 24 hour [...] Procedure Component Value - Date/Time Fungus culture [[id number]] Collected: 09/27/24 1654 Lab Status: Preliminary result Specimen: Tissue from Thigh, Left Updated: 09/28/24 0748 Fungus Culture No fungus isolated to date Blood culture [[id number]] (Abnormal) Collected: 09/26/24 1845 Lab Status: Preliminary result Specimen: Blood, Venous Updated: 09/28/24 0711 Blood Culture Methicillin Resistant Staphylococcus aureus Comment: isolated. Susceptibility testing in progress. Gram Stain Aerobic Bottle: Gram positive cocci in clusters AFB culture [[id number]] Collected: 09/26/24 1702 Lab Status: Preliminary result Specimen: Abscess from Knee, Left Updated: 09/27/24 2335 Acid Fast Stain No acid fast bacilli seen Tissue Culture, Aerobic Only [[id number]] Collected: 09/27/24 1654 Lab Status: Preliminary result Specimen: Tissue from Thigh, Left Updated: 09/27/24 1810 Gram Stain Few Neutrophils seen No microorganisms seen Abscess/Wound Aspirate Culture, Aerobic Only [[id number]] (Abnormal) Collected: 09/26/24 170 Lab Status: Preliminary result Specimen: Abscess from Knee, Left Updated: 09/27/24 1520 Abscess/Wound Aspirate Culture Many Staphylococcus aureus Gram Stain Many neutrophils Many Gram positive cocci Abscess/Wound Aspirate Culture, Aerobic Only [[id number]] (Abnormal) Collected: 09/26/24 165 Lab Status: Preliminary result Specimen: Abscess from Groin, Left Updated: 09/27/24 1519 Abscess/Wound Aspirate Culture Many Staphylococcus aureus Gram Stain Many neutrophils Many Gram positive cocci Blood culture [[id number]] (Abnormal) Collected: 09/26/24 1422 Lab Status: Preliminary result Specimen: Blood, Venous Updated: 09/27/24 1320 Blood Culture Methicillin Resistant Staphylococcus aureus Comment: detected by PCR Gram Stain Aerobic Bottle: Gram positive cocci in clusters MRSA PCR Screen [[id number]] (Abnormal) Collected: 09/27/24 0751 Lab Status: Final result Specimen: Swab from Nares Updated: 09/27/24 1156 MRSA PCR Detected Narrative: This test was performed using the Xpert MRSA NxG test kit and is run on the [employer] Gene[employer]ee[employer] Dx System. This test is cleared by the U.S. Food and Drug Administration for clinical use and its performance characteristics have been verified by the Clinical Genomics and [facility] at [facility]. Anaerobic Culture [[id number]] Collected: 09/26/24 1650 Lab Status: Preliminary result Specimen: Abscess from Groin, Left Updated: 09/27/24 1142 Anaerobic Culture No anaerobic organisms isolated to date Anaerobic Culture [[id number]] Collected: 09/26/24 1702 Lab Status: Preliminary result Specimen: Abscess from Knee, Left Updated: 09/27/24 1142 Anaerobic Culture No anaerobic organisms isolated to date Fungus culture [[id number]] Collected: 09/26/24 1650 Lab Status: Preliminary result Specimen: Abscess from Groin, Left Updated: 09/27/24726 Fungus Culture No fungus isolated to date Fungus culture [[id number]] Collected: 09/26/24 1702 Lab Status: Preliminary result Specimen: Abscess from Knee, Left Updated: 09/27/24726 Fungus Culture No fungus isolated to date New Studies Results for orders placed or performed during the hospital encounter of 09/26/24 Request For 2nd Read CT Lower Extremity (Exam End: 09/26/2024 1:50 PM) Result Value WORKSTATION ID [id number] Impression 1. There is a left femoral [...] questions please contact the health health care coach that requested your imaging first. Electronically signed by: Lisette Bruno MD, [facility] ([phone]), at 09/26/2024 3:[address] Lower Extremity w Contrast Left (Exam End: 09/27/2024 9:16 AM) Result Value WORKSTATION ID [id number] Impression IMPRESSION: 1. Interval explant of LEFT [...] questions please contact the health health care coach that requested your imaging first. Assessment & Plan Geovanna Dixon Jr. is a 49 y.o. male with a history of HTN, HLD, NSTEMI, CAD s/p CABG (12/2011), DM,obesity, PAD s/p L iliofem endart and L fem-BK pop bypass and L 2nd toe amputation who was transferred from [facility] given concern for infected left fem-BK popliteal [...] NaveenKita dobson - 09/27/2024 3:58 PM EST Dairy Nutrition Specialist Encounter Note Patient Name: Geovanna Dixon Jr. : [id number] MR#: [id number] Admit Date: 09/26/2024 2:08 PM Hospital Day 1 day Narrative: Clean Up Helper Banquet initiated visit with patient during rounds on the unit. Patient indicated that he was not islam. He reported that he was in less [...] Labs 09/26/24 1643 PHART 7.38 PO2ART 96 FTV5TFL 41 LACTATEART 1.7 BEART -1.4 Is this [...] toe amputation who was transferred from [facility] given concern for infected left fem-BK popliteal [...] smoking 1 week ago. He presented to [facility] on 09/26 and went to the OR [...] toe amputation who was transferred from [facility] given concern for infected left fem-BK popliteal PTFE bypass. He is now s/p an explantof an infected left femoral-below knee popliteal artery bypass graft. Significant purulence under pr essure was seen intraoperatively, surrounding the entire bypass at proximal and distal anastomoses as well as the tunnel. There are retained grafts left at proximal and distal anastomoses, and a Plaza drain placed from left groin to left [...] associated infection. The patient presented to [facility] ED on 09/26 for evaluation of increasing [...] hemodynamically stable during his time at [facility] and was transported by ground to [facility] for vascular surgery consultation. Patient was admitted [...] 3.51) performed by Thony Garcia MD at [facility] MAIN OR PRO BYPASS GRAFT OTHR, FEM-TIBIAL Left 08/01/2024 @BYPASS GRAFT, FEM-ANT TIBIAL, -POST TIBIAL, -PERONEAL, -DP W\\ SYNTHETIC CONDUIT (WRVU 23.66) performed by Lisette Maldonado MD at [facility] MAIN OR PRO CABG, ARTERY-VEIN, SINGLE 01/04/2012 @CABG, VENOUS & ARTERIAL GRAFT;SINGLE VEIN GRAFT performed by INNA TOVAR at [facility] MAIN OR PRO ENDOSCOPY W/VIDEO-ASST VEIN HARVEST, CABG 01/04/2012 ENDOSCOPIC HARVEST VEIN(S) FOR CABG performed by INNA TOVAR at [facility] MAIN OR VS ARTERIOGRAM LOWER EXTREMITY VASCULAR SURGERY 07/20/2024 VS Arteriogram Lower Extremity Vascular Surgery 07/20/2024 Anabel Finney MD [facility] INTERVENTIONL RAD Prior To Admission [...] 3 times daily. Use as instructed Indications: [id number] each 1 Past Week FreeStyle Lancets 28 [...] 200 - 393 mg/dL Type and screen ([facility]/JACKELYN/BABITA) Result Value Ref Range ABORH Type A POSITIVE PATIENT HISTORY Found Expires at 2359 on: 09/29/2024 ANTIBODY SCREEN AUTOMATED Negative T&S only valid at [facility] LAB CBC (with Diff) Result Value Ref [...] 09/26/2024 1:50 PM) Result Value WORKSTATION ID [id number] Impression 1. There is a left femoral [...] questions please contact the health health care coach that requested your imaging first. Electronically signed by: Lisette Bruno MD, [facility] ([phone]), at 09/26/2024 3:01 PM Assessment/Plan: Geovanna Dixon [...] to the planned procedure. Hand Hygiene: The account receivable clerk did perform hand hygiene prior to line insertion. Catheter type: PICC Lot number: [id number] Procedure Technique: Skin was prepped with chlorhexidine. [...] to the planned procedure. Hand Hygiene: The account receivable clerk did perform hand hygiene prior to line insertion. Catheter type: PICC Lot number: [id number] Procedure Technique: Skin was prepped with chlorhexidine. [...] tomorrow afternoon. Home Vac: I have called [facility] Inventory and they they have now delivered the home ActiVac serial # [id number]. Pt reviewed the [facility] ActiVac Proof of Delivery/Assignment of Benefits (POD/AOB)form and signed it; she has copy of this and the [facility] Patient Copy letter along with the supplies, I will fax copy of the POD/AOB to [facility]. Needs for Transition of Care: Plan for discharge is: Home w/ Services Outpatient Agency/Support Group Needs: Homecare agency Outpatient IV Medications - IV Access: Access Ordered Location: Home, Referred to [facility] Coordination, Referred to [facility] Services: Occupational Therapy, Physical Therapy, Registered Nurse Agency Referrals & Follow-up Care: Contact information for follow-up Home Health & Hospice, [place] [address] [place] [address] Transportation: family or friend will provide Functional status prior to admission: Independent Home Environment: Others in the home: sibling(s), other (see comments) (lives with his sister delmy and brother in law). Current Living Arrangements: home/apartment/condo. Accessibility Concerns: . Current Functional Ability: Assistive Person and Equipment DME used at home: none Other DME Needs: Wound Vac Provider: [facility] Patient is insured through: Primary Insurance: [employer] MANAGED MEDICARE Payor: [employer] MANAGED MEDICARE / Plan: [facility] MEDIC[facility] PPO / Product Type: [...] Pain Flowsheets Taken 10/09/20242022 Pain Management Interventions: njduyg-fjc-gljsg dosing utilized care clustered diversional activity provided [...] the original [place] [address] [facility] Vascular Access Service Peripherally Inserted Central Catheter (PICC) Teaching Sheet Peripherally inserted central catheters (knuu-gn-xkqp) (PICC) are used when you need IV [...] midline catheter? PICC lines are used for oil heaterman treatments. PICC lines may be used for [...] can be set up via the nurse Utilization Review Coordinator to help you. What are possible [...] Efficacy, Safety, Use, and Administration of Cathflo, [employer] 2005 * Care Management - Cristina [...] Ordered Location: Home, Referred to [facility] Coordination Home Health Services: Occupational Therapy, Physical Therapy, Registered Nurse- will remove PT, OT Agency Referrals: [facility] and [facility] for IV abx. [facility] [...] 9:00 AM EST OFFICE OF CARE MANAGEMENT Utilization Review Coordinator Follow-up Note Cristina Turner RN reviewed [...] medically ready. Current Referral in place: VNA: [facility] Wound vac ordered in [employer] System for home wound vac and order emailed to: María for signature. Utilization Review Coordinator to follow with team and family [...] where referrals are placed. Request referral to [place], [place] for IV abx or . Expected date of discharge: 10/11. Patient will require teaching. Referral routed to the [employer] for matching with agency/vendor and to provide [...] care clustered diversional activity provided position adjusted qbkoly-kgv-xiyvm dosing utilized pain management plan reviewed with [...] have. Alternately, during off-hours you may call [phone] to contact a pharmacist. * Plan of Care - Jordyn Navas RN - 10/07/2024 7:21 PM EST OUTCOME EVALUATION NOTE: OUTCOME SUMMARY: [facility], Meds/Assessments as charted, Frequent [...] PM EST PICC line placed today for skilled nursing ABX. Neurovascular checks unchanged. Good oral intake [...] the original [place] [address] [facility] Vascular Access Service Peripherally Inserted Central Catheter (PICC) Teaching Sheet Peripherally inserted central catheters (vrpy-dk-mlgf) (PICC) are used when you need IV [...] midline catheter? PICC lines are used for skilled nursing treatments. PICC lines may be used for [...] can be set up via the nurse Utilization Review Coordinator to help you. What are possible [...] Vascular Access Device Selection, Insertion, and Management, [employer] 08/12. A Review of the Efficacy, Safety, Use, and Administration of Cathflo, [employer] 2005 * Care Management - Vibha [...] through: Primary Insurance: [employer] MANAGED MEDICARE Payor: [employer] MEDICARE / Plan: [employer] MANAGED MEDICARE PPO / Product Type: *No [...] of Discharge: 10/10/2024 Vibha Wahl RN-BSN-CM Pager: [phone] * Consult Note - Stormy Muller [facility] - 10/06/2024 9:19 AM EST [facility] Pharmacokinetics Note Drug: Vancomycin Pharmacokinetic [...] Analysis of the most recent level(s) using [employer] gives the following patient-specific pharmacokinetic parameters: CL: [...] in a steady-state trough of 14.6 mg/L [id number] of 508 mg/L.hr. Recommendations: - SCr has [...] Meeks MD - 10/04/2024 5:01 PM EST [facility] Operative Note Patient Name: Geovanna Dixon Jr. : [id number] MR#: [id number] Case Date: 10/04/2024 Surgeon: Surgeons and Role: * Marko Dickson MD - Primary * Cristino Meeks MD - Resident - Assisting Preoperative diagnosis: Status post explant of infected left PARIMUTUEL TICKET CASHIER-BK pop bypass graft Postoperative diagnosis: Status post explant of infected left PARIMUTUEL TICKET CASHIER-BK pop bypass graft Procedure(s) (LRB): DEBRIDEMENT SKIN [...] toe amputation who was transferred from [facility] given concern for infected left fem-BK popliteal PTFE bypass. He is now s/p an explant of an infected left femoral-below knee popliteal artery bypass graft on 09/26 followed by I/D posterior thigh abscess on 09/27 then left GSV harvest, total explant of remaining PTFE then vein patch angioplasty of the left PARIMUTUEL TICKET CASHIER and BK popliteal artery on 09/28 then [...] Note Patient Name: Geovanna Dixon Jr. : [id number] MR#: [id number] Case Date: 10/04/2024 Surgeon: Surgeons and Role: * Marko Dickson MD - Primary * Cristino Meeks MD - Resident - Assisting Preoperative diagnosis: Status post explant of infected left PARIMUTUEL TICKET CASHIER-BK pop bypass graft Postoperative diagnosis: Status post explant of infected left PARIMUTUEL TICKET CASHIER-BK pop bypass graft Procedure(s) (LRB): DEBRIDEMENT SKIN [...] No Patient is insured through: Primary Insurance: [employer] MEDICARE Payor: [employer] MEDICARE / Plan: tagWALLET MANAGED MEDICARE PPO / Product Type: *No [...] BIT to reengage please page BIT @ [phone] * Consult Note - Vangie Chandra [facility] - 10/04/2024 10:42 AM EST [facility] Pharmacokinetics Note Drug: Vancomycin Pharmacokinetic [...] Analysis of the most recent level(s) using [employer] gives the following patient-specific pharmacokinetic parameters: CL: [...] 2nd toe amputationwho was transferred from [facility] given concern for infected left fem-BK popliteal PTFE bypass. He is now s/p an explant of an infected left femoral-below knee popliteal artery bypass graft (09/26), I/D groin abscess (09/27), L GSV harvest, vein patch angioplasty, L PARIMUTUEL TICKET CASHIER and BK pop w/ sartorius flap L fem, I/D, 09/29 L sartorius flap revision, vac change. 10/03/24 NPO at [facility] for OR wound exploration. [...] 3.51) performed by Thony Garcia MD at [facility] MAIN OR PRO BYPASS GRAFT OTHR, FEM-TIBIAL Left 08/01/2024 @BYPASS GRAFT, FEM-ANT TIBIAL, -POST TIBIAL, -PERONEAL, -DP W\\ SYNTHETIC CONDUIT (WRVU 23.66) performed by Lisette Maldonado MD at [facility] MAIN OR PRO CABG, ARTERY-VEIN, SINGLE 01/04/2012 @CABG, VENOUS & ARTERIAL GRAFT;SINGLE VEIN GRAFT performed by INNA TOVAR at [facility] MAIN OR PRO DEBRIDEMENT MUSCLE AND FASCIA 20 SQ CM/< Left 09/29/2024 DEBRIDEMENT SKIN, SUBCU, MUSCLE, LOWER EXTREMITY (WRVU 2.7) performed by Anabel Finney MD at [facility] MAIN OR PRO DEBRIDEMENT MUSCLE AND FASCIA 20 SQ CM/< Left 10/02/2024 DEBRIDEMENT SKIN, SUBCU, MUSCLE, LOWER EXTREMITY (WRVU 2.7) performed by Hermila Mccormick MDat [facility] MAIN OR PRO DEBRIDEMENT SUBCUTANEOUS TISSUE 20 SQCM/< Left 09/27/2024 DEBRIDEMENT SKIN AND SUBCU, LOWER EXTREMITY (WRVU 1.01) performed by Hayley Torres MD at [facility] MAIN OR PRO DRAIN LOWER LEG DEEP ABSC/HEMATOMA Left 09/26/2024 INCISION & DRAINAGE, LEG OR ANKLE, DEEP ABSCESS OR HEMATOMA (WRVU 5.23) performed by Hayley Torres MD at [facility] OR PRO ENDOSCOPY W/VIDEO-ASST VEIN HARVEST, CABG 01/04/2012 ENDOSCOPIC HARVEST VEIN(S) FOR CABG performed by INNA TOVAR at [facility] MAIN OR PRO EXCISION, INFEC GRAFT, EXTREMITY Left 09/26/2024 EXCISION OF INFECTED GRAFT FROM LOWER EXTREMITY (WRVU 9.53) performed by Hayley Torres MD at [facility] OR PRO EXCISION, INFEC GRAFT, EXTREMITY Left 09/28/2024 EXCISION OF INFECTED GRAFT FROM LOWER EXTREMITY (WRVU 9.53) performed by Hayley Torres MD at [facility] OR PRO EXPLORATION NOT FOLLOWED BY SURG LOWER EXTREMITY ARTERY Left 09/29/2024 @EXPLORATION W\\O SURGICAL REPAIR, FEMORAL ARTERY - JENNIFER (WRVU 7.5) performed by Anabel Finney MD at [facility] MAIN OR PRO FORM SKIN PEDICLE FLAP SCALP, ARM, LEG 09/28/2024 FLAP, PEDICLE,W OR W/O TRANSFER, LEGS (WRVU 10.12) performed by Hayley Torres MD at [facility] MAIN OR PRO I&D DEEP ABSCESS BURSA/HEMATOMA THIGH/KNEE REGION Left 09/26/2024 INCISION & DRAINAGE ABSCESS OR HEMATOMA, THIGH, KNEE SUPERFICIAL (WRVU 6.78) performed by Hayley Torres MD at [facility] MAIN OR PRO REVISION FEMORAL ANAST BPG GROIN OPEN W/NONAUTOG PATCH GRAFT Left 09/28/2024 REV. FEM. ANASTOMOSIS OF SYN. BYPASS GRAFT USING NONAUTOGENOUS PATCH ANGIOPLASTY-JENNIFER (WRVU 23.15) performed by Hayley Torres MD at [facility] MAIN OR PRO UNLISTED PROCEDURE VASCULAR SURGERY Left 09/28/2024 HARVEST SAPHENOUS VEIN (WRVU 13.24) performed by Hayley Torres MD at [facility] MAIN OR VS ARTERIOGRAM LOWER EXTREMITY VASCULAR SURGERY 07/20/2024 VS Arteriogram Lower Extremity Vascular Surgery 07/20/2024 Anabel Finney MD [facility] INTERVENTIONL RAD Social History: Patient [...] Pt issued and educated on use of interior paneler for interior paneler lower items. Self-feeding: Independent Grooming: Set up [...] Discharge planning Total Minutes, Occupational Therapy: 35 ([phone]) OT Evaluation Code Rationale: Diagnosis & Pertinent Co-Morbidities affecting Plan of Care: see PMHx Occupational Profile & Client History: Brief Expanded Extensive x Assessment of Occupational Performance: 1-3 performance deficits 3-5 performance deficits x 5 + performance deficits Clinical Decision Making: Low Moderate High x Clinical decision making of low complexity using standardized patient assessment instrument and measurable assessment of functional outcome. Pager: [phone] Jorge Goetz OT 10/03/2024 Occupational Therapy Rehabilitation [...] Mccormick MD - 10/02/2024 2:06 PM EST [facility] Operative Note Patient Name: Geovanna Dixon Jr. : [id number] MR#: [id number] Case Date: 10/02/2024 Surgeon: Surgeons and Role: [...] toe amputation who was transferred from [facility] given concern for infected left fem-BK popliteal [...] the groin, we then attached a 15 [place] Jose drain to the Plaza drain, and remove the Yung drain, replacing it with the 15 [place] Jose drain. In a similar way we [...] through: Primary Insurance: [employer]ED MEDICARE Payor: [employer]WALLET [employer]NAGED MEDICARE / Plan: [employer] MEDICARE PPO / Product Type: *No Product type* / Secondary Insurance: N/A Plan for discharge is: Pending Hospital Course and PT/OT Recommendations Outpatient Agency/Support Group Needs: None Home Health Services: Occupational Therapy, Physical Therapy, Registered Nurse Agency Referrals: [facility]. [address] [place] [address] Transportation: family or friend will provide Barriers to discharge: Global: Denies needs/concerns at this time Plan: Patient is not medically ready related to: patient is going to the OR today for a washout andremains on blowout precautions. Plan going forward is: when able patient will need to work with PT/OT Anticipated Date of Discharge: 10/10/2024 Penny ROSAS RN CM Phone: [phone] Pager: [phone] * Plan of Care - Heidi Mobley [...] output. * Consult Note - Katelyn Oconnor [facility] - 09/30/2024 7:43 AM EST [facility] Pharmacokinetics Note Drug: Vancomycin Pharmacokinetic target: AUC24 (range) 400-600 mg/L.hr Current regimen: 1500 mg IV every 8 hours Geovanna Dixon is a(n) 49 years old male receiving Vancomycin 1500 mg IV every 8 hours for bacteremia Recent measured serum creatinine values: 09/29/2024 23:52 0.48 mg/dL 09/28/2024 23:51 0.52 mg/dL 09/27/2024 23:58 0.48 mg/dL Assessment: Analysis of the most recent level(s) using [employer] gives the following patient-specific pharmacokinetic parameters: CL: [...] Finney MD - 09/29/2024 2:41 PM EST [facility] Operative Note Patient Name: Geovanan Dixon Jr. : [id number] MR#: [id number] Case Date: 09/29/2024 Surgeon: Surgeons and Role: * Anabel Finney MD - Primary * Tato Aguirre MD - Fellow - Assisting Preoperative diagnosis: explanted LLE infected graft Postoperative diagnosis: explanted LLE infected graft Procedure(s) (LRB): @EXPLORATION W\\O SURGICAL REPAIR, FEMORAL ARTERY - JENNIFER (WRVU [...] toe amputation who was transferred from [facility] given concern for infected left fem-BK popliteal [...] mobilized and explored. The area around the PARIMUTUEL TICKET CASHIER was irrigated copiously. The flap was then [...] closed with interrupted vicryl sutures and cameron. [place] were also placed at the superior aspect [...] Therapy, Physical Therapy, Registered Nurse Agency Referrals: [facility]. [address] [place] [address] Transportation: family or friend will provide Barriers [...] Discharge: 10/04/2024 Penny ROSAS RN CM Phone: [phone] Pager: [phone] * Consult Note - Rose Wright APRN [...] toe amputation who was transferred from [facility] given concern for infected left fem-BK popliteal [...] smoking 1 week ago. He presented to [facility] on 09/26 and went to the OR [...] Procedure Component Value - Date/Time Blood culture [[id number]] (Abnormal) Collected: 09/27/242132 Lab Status: Preliminary result Specimen: Blood, Venous Updated: 09/29/24 0721 Blood Culture Methicillin Resistant Staphylococcus aureus Gram Stain Aerobic Bottle: Gram positive cocci in clusters Blood culture [[id number]] (Abnormal) Collected: 09/26/24 1845 Lab Status: Preliminary result Specimen: Blood, Venous Updated: 09/29/24 0719 Blood Culture Methicillin Resistant Staphylococcus aureus Comment: isolated. Susceptibilities previously reported. Gram Stain Aerobic Bottle: Gram positive cocci in clusters Blood culture [[id number]] (Abnormal) (Susceptibility) Collected: 09/26/24 1422 Lab Status: Preliminary result Specimen: Blood, Venous Updated: 09/29/24 0717 Blood Culture Methicillin Resistant Staphylococcus aureus Comment: detected by PCR Isolate saved. If future testing is required, contact the Microbiology Visitor Services Representative. Gram Stain Aerobic Bottle: Gram positive cocci in clusters Susceptibility Methicillin Resistant Staphylococcus aureus VITEK 2 METHOD Clindamycin Resistant Gentamicin Susceptible [1] Linezolid Susceptible Oxacillin Resistant Trimethoprim/Sulfa Susceptible Vancomycin Susceptible [1] Gentamicin is not appropriate for monotherapy for gram-positive infections. AFB culture [[id number]] Collected: 09/27/24 1654 Lab Status: Preliminary result Specimen: Tissue from Thigh, Left Updated: 09/28/24 2226 Acid Fast Stain No acid fast bacilli seen Anaerobic Culture [[id number]] Collected: 09/27/24 165 Lab Status: Preliminary result Specimen: Tissue from Thigh, Left Updated: 09/28/24 1355 Anaerobic Culture No anaerobic organisms isolated to date Sonicated Tissue/Implant Culture [[id number]] Collected: 09/26/24 1716 Lab Status: Preliminary result Specimen: Vascular Graft from Leg, Left Updated: 09/28/24 1323 Sonicated Tissue/Implant Culture Culture in progress Tissue Culture, Aerobic Only [[id number]] (Abnormal) Collected: 09/27/24 1654 Lab Status: Preliminary result Specimen: Tissue from Thigh, Left Updated: 09/28/24 1049 Tissue Culture Rare Staphylococcus aureus Gram Stain Few Neutrophils seen No microorganisms seen Abscess/Wound Aspirate Culture, Aerobic Only [[id number]] (Abnormal) (Susceptibility) Collected: 09/26/24 1702 Lab Status: [...] to doxycycline. Abscess/Wound Aspirate Culture, Aerobic Only [[id number]] (Abnormal) (Susceptibility) Collected: 09/26/241649 Lab Status: Preliminary [...] is considered susceptible to doxycycline. Fungus culture [[id number]] Collected: 09/27/241653 Lab Status: Preliminary result Specimen: Tissue from Thigh, Left Updated: 09/28/24 0748 Fungus Culture No fungus isolated to date AFB culture [[id number]] Collected: 09/26/241701 Lab Status: Preliminary result Specimen: Abscess from Knee, Left Updated: 09/27/24 2335 Acid Fast Stain No acid fast bacilli seen MRSA PCR Screen [[id number]] (Abnormal) Collected: 09/27/24 0751 Lab Status: Final result Specimen: Swab from Nares Updated: 09/27/24 1156 MRSA PCR Detected Narrative: This test was performed using the Xpert MRSA NxG test kit and is run on the [employer] GeneXVeebeam Dx System. This test is cleared by the U.S. Food and Drug Administration for clinical use and its performance characteristics have been verified by the [facility] at [facility]. Anaerobic Culture [[id number]] Collected: 09/26/241649 Lab Status: Preliminary result Specimen: Abscess from Groin, Left Updated: 09/27/24 1142 Anaerobic Culture No anaerobic organisms isolated to date Anaerobic Culture [[id number]] Collected: 09/26/241701 Lab Status: Preliminary result Specimen: Abscess from Knee, Left Updated: 09/27/24 1142 Anaerobic Culture No anaerobic organisms isolated to date Fungus culture [[id number]] Collected: 09/26/24 1650 Lab Status: Preliminary result Specimen: Abscess from Groin, Left Updated: 09/27/24726 Fungus Culture No fungus isolated to date Fungus culture [[id number]] Collected: 09/26/24 1702 Lab Status: Preliminary result Specimen: Abscess from Knee, Left Updated: 09/27/24726 Fungus Culture No fungus isolated to date New Studies Results for orders placed or performed during the hospital encounter of 09/26/[address] Read CT Lower Extremity (Exam End: 09/26/2024 1:50 PM) Result Value WORKSTATION ID [id number] Impression 1. There is a left femoral [...] questions please contact the health health care coach that requested your imaging first. Electronically signed by: Lisette Bruno MD, [facility] ([phone]), at 09/26/2024 3:[address] Lower Extremity w Contrast Left (Exam End: 09/27/2024 9:16 AM) Result Value WORKSTATION ID [id number] Impression IMPRESSION: 1. Interval explant of LEFT [...] questions please contact the health health care coach that requested your imaging first. Electronically signed by: Ignacia Chi MD, [facility] ([phone]), at 09/27/2024 10:48 AM 09/28 ABIs Interpretation: [...] toe amputation who was transferred from [facility] given concern for infected left fem-BK popliteal [...] Torres MD - 09/28/2024 12:23 PM EST [facility] Operative Note Patient Name: Geovanna Dixon Jr. : [id number] MR#: [id number] Case Date: 09/28/2024 Surgeon: Surgeons and Role: [...] pericardial patch and PTFE willard over the PARIMUTUEL TICKET CASHIER was unincorporated. - Resection of prior femoral [...] Destination 1 : Left femoral proximal graft Shells Inspector Leg, Left SURGICAL PATHOLOGY Hayley Torres MD 09/28/2024 1410 2 : Left distal BK pop graft Shells Inspector Leg, Left SURGICAL PATHOLOGY Hayley Torres [...] Indications: 49M with history of a left PARIMUTUEL TICKET CASHIER-BK popliteal artery bypass with PTFE performed in [...] solution. Systemic heparin was administered. Next, the PARIMUTUEL TICKET CASHIER, SFA, and DFA were clamped. An 11-blade scalpel was used to excise the PTFE graft willard and the prior bovine pericardial patch, and all prior Prolene sutures were removed. Residual plaque in the arterial lumen was removed using a Brownell elevator. The harvested vein patch was cut [...] the midline with division of the first entry level sales consultant, such that the sartorius muscle was free [...] Torres MD - 09/28/2024 12:23 PM EST [facility] Operative Note Patient Name: Geovanna Dixon JrFlorencio : [id number] MR#: [id number] Case Date: 09/28/2024 Surgeon: Surgeons and Role: [...] - Prior bovine pericardial patch over the PARIMUTUEL TICKET CASHIER was unincorporated. - Resection of prior femoral [...] No * Consult Note - Tea Nguyen, [facility] - 09/28/2024 9:23 AM EST Drug: [...] Analysis of the most recent level(s) using [employer] gives the following patient-specific pharmacokinetic parameters: CL: [...] Note Patient Name: Geovanna Dixon Jr. : [id number] MR#: [id number] Case Date: 09/27/2024 Surgeon: Surgeons and Role: [...] AEROBIC & ANAEROBIC Hayley Torres MD 09/27/2024 6274 Fluids: Intraprocedure Crystalloid Total None PRBCs: none [...] Torres MD - 09/27/2024 4:27 PM EST [facility] Operative Note Patient Name: Geovanna Dixon Jr. : [id number] MR#: [id number] Case Date: 09/26/2024 Surgeon: Surgeons and Role: [...] HPI/Surgical Indications: 49M with history of left PARIMUTUEL TICKET CASHIER-BK popliteal artery bypass graft with PTFE (July [...] Torres MD - 09/27/2024 4:27 PM EST [facility] Operative Note Patient Name: Geovanna Dixon Jr. : [id number] MR#: [id number] Case Date: 09/27/2024 Surgeon: Surgeons and Role: [...] toe amputation who was transferred from [facility] given concern for infected left fem-BK popliteal [...] smoking 1 week ago. He presented to [facility] on 09/26 and went to the OR [...] management and to provide a review of skilled nursing diabetes care. Glargine 25 units administered this [...] regimen: Diabetes Provider: PCP in [facility] Medications: Lantus 50 units, lispro 10 units [...] Cunningham APRN Endocrinology Diabetes Management Service Pager: [phone] Weekends please page [phone] 80 minute visit was spent in counseling [...] receiving care in [place] must abide by [place] law. The hierarchy [...] In the past 12 months has the [employer], gas, oil, or water [employer] threatened to shut off services in your [...] Current DME: none Home Address confirmed as: [address] [place] [id number] Social & Family Supports: All names listed [...] his home before. Health/Prescription Coverage: Primary Insurance: [employer] MANAGED MEDICARE Payor: tagWALLET MANAGED MEDICARE / Plan: [facility] MANAGED MEDICARE PPO / Product Type: *No Product type* / Secondary Insurance: N/A ; Prescription Coverage: Yes Preferred Pharmacy: [facility] - [place], [place] - [address] [place] [address] [place] [address] [facility] - [place], [place] - [address] [facility] [address] [facility] [address] [place], [place] - [address] [facility] [address] [facility] [address] [facility] [address] [place] Status: Patient is a : No Primary Care Provider confirmed: JUSTIN Roberson [phone] Patient/Caregiver Goals of Treatment: patient will need [...] where referrals are placed. Provided patient with [facility] Star Quality Rating handout. They have requested referrals to: [facility]. [address] [place] [address] Expected date of discharge: TBD Referral routed to the [employer] for matching with agency/vendor and to provide [...] care as indicated. Penny ROSAS, RN Phone: [phone] Pager: [phone] * Consult Note - Stacey Thomas MD [...] aching prompting him to go to [facility]. The groin pain dissipated. About a week later on 09/26 he developed left-sided groin pain prompting him to go to [facility] once again. Lab work notable for WBC count of 21, lactic acid 3.6. He underwent evaluation with a CT scan demonstrating an abscess from the left groin operative site the entire left of the graft down by the knee. He was transferred to [facility] for further care and he [...] 3.51) performed by Thony Garcia MD at [facility] MAIN OR PRO BYPASS GRAFT OTHR, FEM-TIBIAL Left 08/01/2024 @BYPASS GRAFT, FEM-ANT TIBIAL, -POST TIBIAL, -PERONEAL, -DP W\\ SYNTHETIC CONDUIT (WRVU 23.66) performed by Lisette Maldonado MD at [facility] MAIN OR PRO CABG, ARTERY-VEIN, SINGLE 01/04/2012 @CABG, VENOUS & ARTERIAL GRAFT;SINGLE VEIN GRAFT performed by INNA TOVAR at [facility] MAIN OR PRO ENDOSCOPY W/VIDEO-ASST VEIN HARVEST, CABG 01/04/2012 ENDOSCOPIC HARVEST VEIN(S) FOR CABG performed by INNA TOVAR at [facility] MAIN OR VS ARTERIOGRAM LOWER EXTREMITY VASCULAR SURGERY 07/20/2024 VS Arteriogram Lower Extremity Vascular Surgery 07/20/2024 Anabel Finney MD [facility] INTERVENTIONL RAD Medications: potassium chloride [...] to SICU as a transfer from [facility] for suspected graft infection/sepsis. A/Ox4, able to [...] Torres MD - 09/26/2024 4:50 PM EST [facility] Operative Note Patient Name: Geovanna Dixon Jr. : [id number] MR#: [id number] Case Date: 09/26/2024 Surgeon: Surgeons and Role: * Hayley Torres MD - Primary * Dolly Dan MD - Resident - Assisting * Ken Moeller MD - Resident - Assisting Preoperative diagnosis: left infected femoral to below knee bypass graft Postoperative diagnosis: left infected femoral to below knee bypass graft Procedure: Explant of infected LEFT PARIMUTUEL TICKET CASHIER to below-knee popliteal artery PTFE bypass graft [...] Indications: 49M with history of a left PARIMUTUEL TICKET CASHIER-BK popliteal artery bypass with PTFE performed in [...] toe amputation who was transferred from [facility] given concern for infected left fem-BK popliteal [...] 3.51) performed by Thony Garcia MD at [facility] MAIN OR PRO BYPASS GRAFT OTHR, FEM-TIBIAL Left 08/01/2024 @BYPASS GRAFT, FEM-ANT TIBIAL, -POST TIBIAL, -PERONEAL, -DP W\\ SYNTHETIC CONDUIT (WRVU 23.66) performed by Lisette Maldonado MD at [facility] MAIN OR PRO CABG, ARTERY-VEIN, SINGLE 01/04/2012 @CABG, VENOUS & ARTERIAL GRAFT;SINGLE VEIN GRAFT performed by INNA TOVAR at [facility] MAIN OR PRO ENDOSCOPY W/VIDEO-ASST VEIN HARVEST, CABG 01/04/2012 ENDOSCOPIC HARVEST VEIN(S) FOR CABG performed by INNA TOVAR at [facility] MAIN OR VS ARTERIOGRAM LOWER EXTREMITY VASCULAR SURGERY 07/20/2024 VS Arteriogram Lower Extremity Vascular Surgery 07/20/2024 Anabel Finney MD [facility] INTERVENTIONL RAD Social Hx: Social [...] 3 times daily. Use as instructed Indications: [id number] each 1 [employer] Lancets 28 gauge Misc [...] toe amputation who was transferred from [facility] given concern for infected left fem-BK popliteal [...] PM EST Office [place] [address] Isabela Hayward APRN [facility] [place] [address] 11/10/2024 10:00 AM EST Office [place] [address] Dai Whitman APRN 11/21/2024 2:15 PM EST Office [place] [address] Dayanara Grover MD [facility] [place] [address] Pending Results Name Type Priority Associated Diagnoses [...] EXTREMITY Routine 09/29/2024 3:07 PM EST EXPLORATION W\\O SURGICAL REPAIR, FEMORAL ARTERY - JENNIFER Routine [...] 10 PM EST Excision, Infec Graft, Extremity ([id number]) 09/28/2024 11:28 AM EST Infected explanted left leg bypass graft Form Skin Pedicle Flap Scalp, Arm, Leg ([id number]) 09/28/2024 11:28 AM EST Infected explanted left leg bypass graft Unlisted Procedure Vascular Surgery ([id number]) 09/28/2024 11:28 AM EST Infected explanted left leg bypass graft Revision Femoral Anast Bpg Groin Open W/Nonautog Patch Graft ([id number]) 09/28/2024 11:28 AM EST Infected explanted left [...] [facility] EGFR - External 104.05 [facility] Anion Gap - External 11.6(H) [facility] Sodium - External 141 [facility] Potassium - External 4.3 [facility] Chloride - External 103 [facility] CO2 - External 26.4 [facility] Calcium - External 9.0 [facility] [...] Unknown 10/16/2024 Amaya Hernandez MD CHEMISTRY ORDERABLES [address] [place], [place] [address] [phone] * CK (10/16/2024) CK, Total - External 39 [facility] Blood VENOUS BLOOD SPECIMEN / Unknown 10/16/2024 Amaya Hernandez MD CHEMISTRY ORDERABLES [address] [place], [place] [address] [phone] * (ABNORMAL) CBC (with Diff) (10/16/2024) WBC - External 10.99(H) [facility] RBC - External 3.71(L) [facility] Hemoglobin - External 10.8(L) [facility] Hematocrit - External 33.8(L) [facility] MCV - External 91 [facility] MCH - External 29.1 [facility] MCHC - External 32.0 [facility] RDWCV - External 14.2(H) [facility] Platelets - External 512(H) [facility] MPV - External 9.8 [facility] NRBC % - External 0.0 [...] 10/16/2024 Amaya Hernandez MD HEMATOLOGY ORDERABLE S [address] [place], [place] [address] [phone] * POC, GLUCOSE (10/10/2024 4:27 PM EST) Glucometer, POC 172 65 - 199 mg/dL 10/10/2024 4:27 PM EST [facility] Comment:Supplemental ranges: <140 mg/dL before meals <180 mg/dL all other times of the day. Blood CAPILLARY BLOOD / Unknown 10/10/2024 4:27 PM EST 10/10/2024 4:27 PM EST Hayley Torres MD POINT OF CARE TEST O GILDA Performing Organization Address City/[facility]/ZIP Co de Phone Number [facility] [place] [address] * POC, GLUCOSE (10/10/2024 11:10 AM EST) Glucometer, POC 174 65 - 199 mg/dL 10/10/2024 11:11 AM EST [facility] Comment:Supplemental ranges: <140 mg/dL before meals <180 mg/dL all other times of the day. Blood CAPILLARY BLOOD / Unknown 10/10/2024 11:10 AM EST 10/10/2024 11:11 AM EST Hayley Torres MD POINT OF CARE TEST O GILDA Performing Organization Address [facility] Co de Phone Number [facility] [place] [address] * POC, GLUCOSE (10/10/2024 7:46 AM EST) Glucometer, POC 141 65 - 199 mg/dL 10/10/2024 7:46 AM EST [facility] Comment:Supplemental ranges: <140 mg/dL before meals <180 mg/dL all other times of the day. Blood CAPILLARY BLOOD / Unknown 10/10/2024 7:46 AM EST 10/10/2024 7:46 AM EST Hayley Torres MD POINT OF CARE TEST O GILDA Performing Organization Address City/[facility]/ZIP Co de Phone Number [facility] [place] [address] * POC, GLUCOSE (10/10/2024 6:11 AM EST) Pathologist [facility] Glucometer, POC 127 65 - 199 mg/dL 10/10/2024 6:11 AM EST [facility] Comment:Supplemental ranges: <140 mg/dL before meals <180 mg/dL all other times of the day. Blood CAPILLARY BLOOD / Unknown 10/10/2024 6:11 AM EST 10/10/2024 6:11 AM EST Hayley Torres MD POINT OF CARE TEST O RDERABLES [facility] [place] [address] * CK (10/10/2024 12:33 AM EST) [facility] Creatine Kinase 32 0 - 200 unit/L 10/10/2024 8:54 AM EST [facility] Blood VENOUS BLOOD SPECIMEN / Unknown Venipuncture / Unknown 10/10/2024 12:33 AM EST 10/10/2024 12:43 AM EST María Carranza APRN CHEMISTRY ORDER RANDELL [facility] [place] [address] * (ABNORMAL) CBC (with Diff) (10/10/2024 12:33 AM EST) [facility] White Blood Cell 11.57(H) 4.00 - 9.50 x10(3)/mc L 10/10/2024 12:48 AM EST [facility] Red Blood Cell 3.75(L) 4.58 - 5.54 x10(6)/mc L 10/10/2024 12:48 AM EST [facility] Hemoglobin 11.1(L) 13.7 - 16.5 g/dL 10/10/2024 12:48 AM EST [facility] Hematocrit 33.5(L) 40.5 - 48.5 % 10/10/2024 12:48 AM [facility] Mean Cell Volume 89.3 82.9 - 93.1 fL 10/10/2024 12:48 AM [facility] Mean Cell Hemoglobin 29.6 27.5 - 32.1 pg 10/10/2024 12:48 AM [facility] Mean Cell Hemoglobin Concentration 33.1 32.0 - 35.7 g/dL 10/10/2024 12:48 AM [facility] Platelet 823(H) 145 - 357 x10(3)/mc L 10/10/2024 12:48 AM [facility] Mean Platelet Volume 9.2 7.6 - 12.9 fL 10/10/2024 12:48 AM [facility] RDW Standard Deviation 46.3(H) 36.0 - 45.0 fL 10/10/2024 12:48 AM [facility] RDW coefficient of variation 14.6(H) 11.4 - 13.8 % 10/10/2024 12:48 AM [facility] NRBC% auto 0.0 % 10/10/2024 12:48 AM [facility] NRBC Absolute <0.01 <0.01 x10(3)/mc L 10/10/2024 12:48 AM [facility] Neutrophil % 61.3 % 10/10/2024 12:48 AM [facility] Neutrophil Absolute (ANC) - Automated 7.08(H) 1.70 - 6.10 x10(3)/mc L 10/10/2024 12:48 AM [facility] Lymph % 28.7 % 10/10/2024 12:48 AM [facility] Lymph Absolute 3.32(H) 0.90 - 3.20 x10(3)/mc L 10/10/2024 12:48 AM [facility] Monocyte % 7.0 % 10/10/2024 12:48 AM [facility] Monocyte Absolute 0.81 0.30 - 0.90 x10(3)/mc L 10/10/2024 12:48 AM EST [facility] Eos % 1.6 % 10/10/2024 12:48 AM EST [facility] Eos Absolute 0.19 0.00 - 0.40 x10(3)/mc L 10/10/2024 12:48 AM EST [facility] Basophil % 1.0 % 10/10/2024 12:48 AM [facility] Baso Absolute 0.12(H) 0.00 - 0.10 x10(3)/mc L 10/10/2024 12:48 AM [facility] Immature Gran % 0.4 % 12:48 AM [facility] Immature Gran Absolute 0.05(H) 0.00 - 0.04 x10(3)/mc L 10/10/2024 12:48 AM [facility] Blood VENOUS BLOOD SPECIMEN / Unknown Venipuncture / Unknown 10/10/2024 12:33 AM EST 10/10/2024 12:43 AM EST Hayley Torres MD HEMATOLOGY ORDERABLE S [facility] [place] [address] * (ABNORMAL) Basic Metabolic Panel (10/10/2024 12:33 AM EST) Glucose 125 65 - 199 mg/dL 10/10/2024 1:12 AM [facility] Comment:Glucose Concentratio n >=200 mg/dL plus symptoms is consistent with Diabetes Mellitus. Blood Urea Nitrogen 19 10 - 20 mg/dL 10/10/2024 1:12 AM EST [facility] Creatinine 0.57(L) 0.80 - 1.50 mg/dL 10/10/2024 1:12 AM [facility] Sodium 138 135 - 145 mMol/L 10/10/2024 1:12 AM [facility] Potassium 4.1 3.5 - 5.0 mMol/L 10/10/2024 1:12 AM EST [facility] Chloride 103 98 - 107 mMol/L 10/10/2024 1:12 AM EST [facility] Carbon Dioxide 25 22 - 31 mMol/L 10/10/2024 1:12 AM [facility] Anion Gap 10 5 - [...] CHEMISTRY ORDERABLES [facility] [place] [address] * Phosphorus (10/10/2024 12:33 AM EST) Phosphorus 3.8 2.5 - 4.5 mg/dL 10/10/2024 1:12 AM EST [facility] Blood VENOUS BLOOD SPECIMEN / Unknown Venipuncture / Unknown 10/10/2024 12:33 AM EST 10/10/2024 12:43 AM EST Hayley Torres MD CHEMISTRY ORDERABLES Performing Organization Address City/[facility]/ZIP Co de Phone Number [facility] [place] [address] * Magnesium (10/10/2024 12:33 AM EST) Magnesium 0.81 0.69 - 1.07 mMol/L 10/10/2024 1:12 AM EST [facility] Blood VENOUS BLOOD SPECIMEN / Unknown Venipuncture / Unknown 10/10/2024 12:33 AM EST 10/10/2024 12:43 AM EST Hayley Torres MD CHEMISTRY ORDERABLES Performing Organization Address [facility] Co de Phone Number [facility] [place] [address] * POC, GLUCOSE (10/10/2024 12:31 AM EST) Glucometer, POC 119 65 - 199 mg/dL 10/10/2024 12:32 AM EST [facility] Comment:Supplemental ranges: <140 mg/dL before meals <180 mg/dL all other times of the day. Blood CAPILLARY BLOOD / Unknown 10/10/2024 12:31 AM EST 10/10/2024 12:32 AM EST Hayley Torres MD POINT OF CARE TEST O RDERABLES Performing Organization Address City/[facility]/ZIP Co de Phone Number [facility] [place] [address] * POC, GLUCOSE (10/09/2024 8:16 PM EST) Glucometer, POC 104 65 - 199 mg/dL 10/09/2024 8:16 PM EST [facility] Comment:Supplemental ranges: <140 mg/dL before meals <180 mg/dL all other times of the day. Blood CAPILLARY BLOOD / Unknown 10/09/2024 8:16 PM EST 10/09/2024 8:16 PM EST Hayley Torres MD POINT OF CARE TEST O GILDA Performing Organization Address [facility] Co de Phone Number [facility] [place] [address] * POC, GLUCOSE (10/09/2024 3:57 PM EST) Glucometer, POC 120 65 - 199 mg/dL 10/09/2024 3:57 PM EST [facility] Comment:Supplemental ranges: <140 mg/dL before meals <180 mg/dL all other times of the day. Blood CAPILLARY BLOOD / Unknown 10/09/2024 3:57 PM EST 10/09/2024 3:57 PM EST Hayley Torres MD POINT OF CARE TEST O GILDA Performing Organization Address [facility] de Phone Number [facility] [place] [address] * Place PICC Line: Contact Vascular Access Page [phone] Extremity to exclude: No restrictions; Is PICC [...] to the planned procedure. Hand Hygiene: The account receivable clerk did perform hand hygiene prior to line insertion. Catheter type: PICC Lot number: [id number] Procedure Technique: Skin was prepped with chlorhexidine. [...] Guidance (IV Team) (10/09/2024 1:55 PM EST) [employer] WORKSTATION ID [id number] RAD Anatomical Region Laterality Modality N/A Radio [...] questions please contact the health health care coach that requested your imaging first. ? Electronically signed by: Terell Salvador MD, [facility] ([phone]), at 10/09/2024 3:30 PM Narrative 10/09/2024 3:30 [...] have questions please contactthe health health care coach that requested your imaging first. Electronically signed by: Terell Salvador MD, [facility]([phone]), at 10/09/2024 3:30 PM María Carranza APRN IMG FLUORO ORDE RABLES * POC, GLUCOSE (10/09/2024 11:40 AM EST) [facility] Glucometer, POC 180 65 - 199 mg/dL 10/09/2024 11:40 AM EST [facility] Comment:Supplemental ranges: <140 mg/dL before meals <180 mg/dL all other times of the day. Blood CAPILLARY BLOOD / Unknown 10/09/2024 11:40 AM EST 10/09/2024 11:41 AM EST Hayley Torres MD POINT OF CARE TEST O RDERAHERNANDEZ Performing Organization Address City/[facility]/ZIP Co de Phone Number [facility] [place] [address] * (ABNORMAL) POC, GLUCOSE (10/09/2024 7:35 AM EST) Glucometer, POC 215(H) 65 - 199 mg/dL 10/09/2024 7:36 AM EST [facility] Comment:Supplemental ranges: <140 mg/dL before meals <180 mg/dL all other times of the day. Blood CAPILLARY BLOOD / Unknown 10/09/2024 7:35 AM EST 10/09/2024 7:36 AM EST Hayley Torres MD POINT OF CARE TEST O GILDA Performing Organization Address [facility] Co de Phone Number [facility] [place] [address] * POC, GLUCOSE (10/09/2024 4:26 AM EST) Glucometer, POC 175 65 - 199 mg/dL 10/09/2024 4:26 AM EST [facility] Comment:Supplemental ranges: <140 mg/dL before meals <180 mg/dL all other times of the day. Blood CAPILLARY BLOOD / Unknown 10/09/2024 4:26 AM EST 10/09/2024 4:26 AM EST Hayley Torres MD POINT OF CARE TEST O RDERAHERNANDEZ Performing Organization Address City/[facility]/ZIP Co de Phone Number [facility] [place] [address] * (ABNORMAL) CBC (with Diff) (10/09/2024 12:45 AM EST) White Blood Cell 11.27(H) 4.00 - 9.50 x10(3)/mc L 10/09/2024 1:31 AM [facility] Red Blood Cell 3.74(L) 4.58 - 5.54 x10(6)/mc L 10/09/2024 1:31 AM [facility] Hemoglobin 10.8(L) 13.7 - 16.5 g/dL 10/09/2024 1:31 AM [facility] Hematocrit 33.5(L) 40.5 - 48.5 % 10/09/2024 1:31 AM [facility] Mean Cell Volume 89.6 82.9 - 93.1 fL 10/09/2024 1:31 AM [facility] Mean Cell Hemoglobin 28.9 27.5 - 32.1 pg 10/09/2024 1:31 AM [facility] Mean Cell Hemoglobin Concentration 32.2 32.0 - 35.7 g/dL 10/09/2024 1:31 AM [facility] Platelet 886(H) 145 - 357 x10(3)/mc L 10/09/2024 1:31 AM [facility] Mean Platelet Volume 9.5 7.6 - 12.9 fL 10/09/2024 1:31 AM [facility] RDW Standard Deviation 47.7(H) 36.0 - 45.0 fL 10/09/2024 1:31 AM [facility] RDW coefficient of variation 14.6(H) 11.4 - 13.8 % 10/09/2024 1:31 AM [facility] NRBC% auto 0.0 % 10/09/2024 1:31 AM [facility] NRBC Absolute <0.01 <0.01 x10(3)/mc L 10/09/2024 1:31 AM [facility] Neutrophil % 61.7 % 10/09/2024 1:31 AM [facility] Neutrophil Absolute (ANC) - Automated 6.95(H) 1.70 - 6.10 x10(3)/mc L 10/09/2024 1:31 AM [facility] Lymph % 28.3 % 10/09/2024 1:31 AM [facility] Lymph Absolute 3.19 0.90 - 3.20 x10(3)/mc L 10/09/2024 1:31 AM [facility] Monocyte % 6.8 % 10/09/2024 1:31 AM [facility] Monocyte Absolute 0.77 0.30 - 0.90 x10(3)/mc L 10/09/2024 1:31 AM [facility] Eos % 1.5 % 10/09/2024 1:31 AM [facility] Eos Absolute 0.17 0.00 - 0.40 x10(3)/mc L 10/09/2024 1:31 AM [facility] Basophil % 1.1 % 10/09/2024 1:31 AM [facility] Baso Absolute 0.12(H) 0.00 - 0.10 x10(3)/mc L 10/09/2024 1:31 AM [facility] Immature Gran % 0.6 % 1:31 AM [facility] Immature Gran Absolute 0.07(H) 0.00 - 0.04 x10(3)/mc L 10/09/2024 1:31 AM [facility] Blood VENOUS BLOOD SPECIMEN / Unknown Venipuncture / Unknown 10/09/2024 12:45 AM EST 10/09/2024 1:27 AM EST Hayley Torres MD HEMATOLOGY ORDERABLE S [facility] [place] [address] * (ABNORMAL) Basic Metabolic Panel (10/09/2024 12:45 AM EST) Glucose 135 65 - 199 mg/dL 10/09/2024 1:54 AM [facility] Comment:Glucose Concentratio n >=200 mg/dL plus symptoms is consistent with Diabetes Mellitus. Blood Urea Nitrogen 22(H) 10 - 20 mg/dL 10/09/2024 1:54 AM [facility] Creatinine 0.53(L) 0.80 - 1.50 mg/dL 10/09/2024 1:54 AM [facility] Sodium 138 135 - 145 mMol/L 10/09/2024 1:54 AM [facility] Potassium 4.1 3.5 - 5.0 mMol/L 10/09/2024 1:54 AM [facility] Chloride 102 98 - 107 mMol/L 10/09/2024 1:54 AM [facility] Carbon Dioxide 24 22 - 31 mMol/L 10/09/2024 1:54 AM [facility] Anion Gap 12 5 - 15 mMol/L 10/09/2024 1:54 AM [facility] Calcium 9.4 8.5 - 10.5 mg/dL 10/09/2024 1:54 AM [facility] Est Glomerular Filtration Rate - Male 122 mL/min/1. 73 m?? 10/09/2024 1:54 AM [facility] Comment: This patient's estimated GFR [...] CHEMISTRY ORDERABLES [facility] [place] [address] * Phosphorus (10/09/2024 12:45 AM EST) Phosphorus 3.9 2.5 - 4.5 mg/dL 10/09/2024 1:54 AM EST [facility] Blood VENOUS BLOOD SPECIMEN / Unknown Venipuncture / Unknown 10/09/2024 12:45 AM EST 10/09/2024 1:27 AM EST Hayley Torres MD CHEMISTRY ORDERABLES Performing Organization Address [facility] Co de Phone Number [facility] [place] [address] * Magnesium (10/09/2024 12:45 AM EST) Magnesium 0.80 0.69 - 1.07 mMol/L 10/09/2024 1:54 AM EST [facility] Blood VENOUS BLOOD SPECIMEN / Unknown Venipuncture / Unknown 10/09/2024 12:45 AM EST 10/09/2024 1:27 AM EST Hayley Torres MD CHEMISTRY ORDERABLES Performing Organization Address City/[facility]/ZIP Co de Phone Number [facility] [place] [address] * POC, GLUCOSE (10/09/2024 12:11 AM EST) Glucometer, POC 157 65 - 199 mg/dL 10/09/2024 12:11 AM EST [facility] Comment:Supplemental ranges: <140 mg/dL before meals <180 mg/dL all other times of the day. Blood CAPILLARY BLOOD / Unknown 10/09/2024 12:11 AM EST 10/09/2024 12:11 AM EST Hayley Torres MD POINT OF CARE TEST O GILDA Performing Organization Address [facility] Co de Phone Number [facility] [place] [address] * POC, GLUCOSE (10/08/2024 7:25 PM EST) Glucometer, POC 157 65 - 199 mg/dL 10/08/2024 7:25 PM EST [facility] Comment:Supplemental ranges: <140 mg/dL before meals <180 mg/dL all other times of the day. Blood CAPILLARY BLOOD / Unknown 10/08/2024 7:25 PM EST 10/08/2024 7:25 PM EST Hayley Torres MD POINT OF CARE TEST O GILDA Performing Organization Address [facility] Co de Phone Number [facility] [place] [address] * POC, GLUCOSE (10/08/2024 5:54 PM EST) Glucometer, POC 198 65 - 199 mg/dL 10/08/2024 5:54 PM EST [facility] Comment:Supplemental ranges: <140 mg/dL before meals <180 mg/dL all other times of the day. Blood CAPILLARY BLOOD / Unknown 10/08/2024 5:54 PM EST 10/08/2024 5:54 PM EST Hayley Torres MD POINT OF CARE TEST O GILDA Performing Organization Address City/[facility] Co de Phone Number [facility] [place] [address] * (ABNORMAL) POC, GLUCOSE (10/08/2024 4:08 PM EST) Glucometer, POC 281(H) 65 - 199 mg/dL 10/08/2024 4:08 PM EST [facility] Comment:Supplemental ranges: <140 mg/dL before meals <180 mg/dL all other times of the day. Blood CAPILLARY BLOOD / Unknown 10/08/2024 4:08 PM EST 10/08/2024 4:09 PM EST Hayley Torres MD POINT OF CARE TEST O GILDA [facility] [place] [address] * POC, GLUCOSE (10/08/2024 12:44 PM EST) Glucometer, POC 146 65 - 199 mg/dL 10/08/2024 12:44 PM EST [facility] Comment:Supplemental ranges: <140 mg/dL before meals <180 mg/dL all other times of the day. Blood CAPILLARY BLOOD / Unknown 10/08/2024 12:44 PM EST 10/08/2024 12:44 PM EST Hayley Torres MD POINT OF CARE TEST O GILDA Performing Organization Address City/[facility]/ZIP Co de Phone Number [facility] [place] [address] * POC, GLUCOSE (10/08/2024 8:30 AM EST) Glucometer, POC 172 65 - 199 mg/dL 10/08/2024 8:30 AM EST [facility] Comment:Supplemental ranges: <140 mg/dL before meals <180 mg/dL all other times of the day. Blood CAPILLARY BLOOD / Unknown 10/08/2024 8:30 AM EST 10/08/2024 8:30 AM EST Hayley Torres MD POINT OF CARE TEST O GILDA [facility] [place] [address] * Vancomycin Level, Random (10/08/2024 5:59 AM EST) Vancomycin, Random 6.8 mg/L 2023 7:58 AM EST [facility] Comment:This level is for de termination of the patient's vancomycin cidq-okpyj-kwd-curve (AUC) value. Contact the inpatient pharmacy for interpretation. Blood VENOUS BLOOD SPECIMEN / Unknown Venipuncture / Unknown 10/08/2024 5:59 AM EST 10/08/2024 7:29 AM EST Hayley Torres MD CHEMISTRY ORDERABLES Performing Organization Address City/[facility]/ZIP Co de Phone Number [facility] [place] [address] * POC, GLUCOSE (10/08/2024 4:02 AM EST) Glucometer, POC 163 65 - 199 mg/dL 10/08/2024 4:02 AM EST [facility] Comment:Supplemental ranges: <140 mg/dL before meals <180 mg/dL all other times of the day. Blood CAPILLARY BLOOD / Unknown 10/08/2024 4:02 AM EST 10/08/2024 4:02 AM EST Hayley Torres MD POINT OF CARE TEST O RDERABLES Performing Organization Address [facility]/ZIP Co de Phone Number [facility] [place] [address] * (ABNORMAL) CBC (with Diff) (10/08/2024 12:08 AM EST) White Blood Cell 10.35(H) 4.00 - 9.50 x10(3)/mc L 10/08/2024 12:29 AM EST [facility] Red Blood Cell 3.53(L) 4.58 - 5.54 x10(6)/mc L 10/08/2024 12:29 AM EST [facility] Hemoglobin 10.2(L) 13.7 - 16.5 g/dL 10/08/2024 12:29 AM EST [facility] Hematocrit 31.7(L) 40.5 - 48.5 % 10/08/2024 12:29 AM [facility] Mean Cell Volume 89.8 82.9 - 93.1 fL 10/08/2024 12:29 AM [facility] Mean Cell Hemoglobin 28.9 27.5 - 32.1 pg 10/08/2024 12:29 AM [facility] Mean Cell Hemoglobin Concentration 32.2 32.0 - 35.7 g/dL 10/08/2024 12:29 AM [facility] Platelet 778(H) 145 - 357 x10(3)/mc L 10/08/2024 12:29 AM [facility] Mean Platelet Volume 9.1 7.6 - 12.9 fL 10/08/2024 12:29 AM [facility] RDW Standard Deviation 47.5(H) 36.0 - 45.0 fL 10/08/2024 12:29 AM [facility] RDW coefficient of variation 14.6(H) 11.4 - 13.8 % 10/08/2024 12:29 AM [facility] NRBC% auto 0.0 % 10/08/2024 12:29 AM [facility] NRBC Absolute <0.01 <0.01 x10(3)/mc L 10/08/2024 12:29 AM [facility] Neutrophil % 60.9 % 10/08/2024 12:29 AM [facility] Neutrophil Absolute (ANC) - Automated 6.30(H) 1.70 - 6.10 x10(3)/mc L 10/08/2024 12:29 AM [facility] Lymph % 28.4 % 10/08/2024 12:29 AM [facility] Lymph Absolute 2.94 0.90 - 3.20 x10(3)/mc L 10/08/2024 12:29 AM [facility] Monocyte % 7.2 % 10/08/2024 12:29 AM [facility] Monocyte Absolute 0.75 0.30 - 0.90 x10(3)/mc L 10/08/2024 12:29 AM EST [facility] Eos % 1.7 % 10/08/2024 12:29 AM EST [facility] Eos Absolute 0.18 0.00 - 0.40 x10(3)/mc L 10/08/2024 12:29 AM EST [facility] Basophil % 1.0 % 10/08/2024 12:29 AM [facility] Baso Absolute 0.10 0.00 - 0.10 x10(3)/mc L 10/08/2024 12:29 AM [facility] Immature Gran % 0.8 % 12:29 AM [facility] Immature Gran Absolute 0.08(H) 0.00 - 0.04 x10(3)/mc L 10/08/2024 12:29 AM [facility] Blood VENOUS BLOOD SPECIMEN / Unknown Venipuncture / Unknown 10/08/2024 12:08 AM EST 10/08/2024 12:23 AM EST Hayley Torres MD HEMATOLOGY ORDERABLE S [facility] [place] [address] * (ABNORMAL) Basic Metabolic Panel (10/08/2024 12:08 AM EST) Glucose 151 65 - 199 mg/dL 10/08/2024 12:50 AM [facility] Comment:Glucose Concentratio n >=200 mg/dL plus symptoms is consistent with Diabetes Mellitus. Blood Urea Nitrogen 19 10 - 20 mg/dL 10/08/2024 12:50 AM [facility] Creatinine 0.60(L) 0.80 - 1.50 mg/dL 10/08/2024 12:50 AM [facility] Sodium 135 135 - 145 mMol/L 10/08/2024 12:50 AM EST [facility] Potassium 3.8 3.5 - 5.0 mMol/L 10/08/2024 12:50 AM [facility] Chloride 101 98 - 107 mMol/L 10/08/2024 12:50 AM [facility] Carbon Dioxide 25 22 - 31 mMol/L 10/08/2024 12:50 AM [facility] Anion Gap 9 5 - 15 mMol/L 10/08/2024 12:50 AM [facility] Calcium 9.2 8.5 - 10.5 mg/dL 10/08/2024 12:50 AM [facility] Est Glomerular Filtration Rate - Male 118 mL/min/1. 73 m?? 10/08/2024 12:50 AM [facility] Comment: This patient's estimated GFR [...] CHEMISTRY ORDERABLES [facility] [place] [address] * Phosphorus (10/08/2024 12:08 AM EST) Phosphorus 3.4 2.5 - 4.5 mg/dL 10/08/2024 12:50 AM EST [facility] Blood VENOUS BLOOD SPECIMEN / Unknown Venipuncture / Unknown 10/08/2024 12:08 AM EST 10/08/2024 12:23 AM EST Hayley Torres MD CHEMISTRY ORDERABLES Performing Organization Address City/[facility] - [facility]/ZIP Co de Phone Number [facility] [place] [address] * Magnesium (10/08/2024 12:08 AM EST) Magnesium 0.85 0.69 - 1.07 mMol/L 10/08/2024 12:50 AM EST [facility] Blood VENOUS BLOOD SPECIMEN / Unknown Venipuncture / Unknown 10/08/2024 12:08 AM EST 10/08/2024 12:23 AM EST Hayley Torres MD CHEMISTRY ORDERABLES Performing Organization Address City/[facility] Co de Phone Number [facility] [place] [address] * CK (10/08/2024 12:08 AM EST) Creatine Kinase 24 0 - 200 unit/L 10/08/2024 12:50 AM EST [facility] Blood VENOUS BLOOD SPECIMEN / Unknown Venipuncture / Unknown 10/08/2024 12:08 AM EST 10/08/2024 12:23 AM EST Hayley Torres MD CHEMISTRY ORDERABLES Performing Organization Address City/[facility]/ZIP Co de Phone Number [facility] [place] [place] [address] * POC, GLUCOSE (10/08/2024 12:05 AM EST) Glucometer, POC 100 65 - 199 mg/dL 10/08/2024 12:05 AM EST [facility] Comment:Supplemental ranges: <140 mg/dL before meals <180 mg/dL all other times of the day. Blood CAPILLARY BLOOD / Unknown 10/08/2024 12:05 AM EST 10/08/2024 12:05 AM EST Hayley Torres MD POINT OF CARE TEST O RDERAHERNANDEZ Performing Organization Address [facility] Co de Phone Number [facility] [place] [address] * POC, GLUCOSE (10/07/2024 8:29 PM EST) Glucometer, POC 107 65 - 199 mg/dL 10/07/2024 8:30 PM EST [facility] Comment:Supplemental ranges: <140 mg/dL before meals <180 mg/dL all other times of the day. Blood CAPILLARY BLOOD / Unknown 10/07/2024 8:29 PM EST 10/07/2024 8:30 PM EST Hayley Torres MD POINT OF CARE TEST O GILDA Performing Organization Address [facility] Co de Phone Number [facility] [place] [place] [address] * POC, GLUCOSE (10/07/2024 4:33 PM EST) Glucometer, POC 129 65 - 199 mg/dL 10/07/2024 4:33 PM EST [facility] Comment:Supplemental ranges: <140 mg/dL before meals <180 mg/dL all other times of the day. Blood CAPILLARY BLOOD / Unknown 10/07/2024 4:33 PM EST 10/07/2024 4:34 PM EST Hayley Torres MD POINT OF CARE TEST O GILDA Performing Organization Address [facility] Co de Phone Number [facility] [place] [address] * (ABNORMAL) POC, GLUCOSE (10/07/2024 10:58 AM EST) Glucometer, POC 221(H) 65 - 199 mg/dL 10/07/2024 10:59 AM EST [facility] Comment:Supplemental ranges: <140 mg/dL before meals <180 mg/dL all other times of the day. Blood CAPILLARY BLOOD / Unknown 10/07/2024 10:58 AM EST 10/07/2024 10:59 AM EST Hayley Torres MD POINT OF CARE TEST O GILDA Performing Organization Address [facility] Co de Phone Number [facility] [place] [address] * (ABNORMAL) POC, GLUCOSE (10/07/2024 7:42 AM EST) Glucometer, POC 201(H) 65 - 199 mg/dL 10/07/2024 7:42 AM EST [facility] Comment:Supplemental ranges: <140 mg/dL before meals <180 mg/dL all other times of the day. Blood CAPILLARY BLOOD / Unknown 10/07/2024 7:42 AM EST 10/07/2024 7:43 AM EST Hayley Torres MD POINT OF CARE TEST O GILDA Performing Organization Address [facility] de Phone Number [facility] [place] [address] * POC, GLUCOSE (10/07/2024 3:58 AM EST) Glucometer, POC 150 65 - 199 mg/dL 10/07/2024 3:58 AM EST [facility] Comment:Supplemental ranges: <140 mg/dL before meals <180 mg/dL all other times of the day. Blood CAPILLARY BLOOD / Unknown 10/07/2024 3:58 AM EST 10/07/2024 3:58 AM EST Hayley Torres MD POINT OF CARE TEST O GILDA Performing Organization Address [facility] Co de Phone Number [facility] [place] [address] * (ABNORMAL) CBC (with Diff) (10/07/2024 12:06 AM EST) White Blood Cell 11.27(H) 4.00 - 9.50 x10(3)/mc L 10/07/2024 12:19 AM [facility] Red Blood Cell 3.47(L) 4.58 - 5.54 x10(6)/mc L 10/07/2024 12:19 AM [facility] Hemoglobin 10.1(L) 13.7 - 16.5 g/dL 10/07/2024 12:19 AM [facility] Hematocrit 30.9(L) 40.5 - 48.5 % 10/07/2024 12:19 AM [facility] Mean Cell Volume 89.0 82.9 - 93.1 fL 10/07/2024 12:19 AM [facility] Mean Cell Hemoglobin 29.1 27.5 - 32.1 pg 10/07/2024 12:19 AM [facility] Mean Cell Hemoglobin Concentration 32.7 32.0 - 35.7 g/dL 10/07/2024 12:19 AM [facility] Platelet 789(H) 145 - 357 x10(3)/mc L 10/07/2024 12:19 AM [facility] Mean Platelet Volume 9.0 7.6 - 12.9 fL 10/07/2024 12:19 AM [facility] RDW Standard Deviation 45.7(H) 36.0 - 45.0 fL 10/07/2024 12:19 AM [facility] RDW coefficient of variation 14.3(H) 11.4 - 13.8 % 10/07/2024 12:19 AM [facility] NRBC% auto 0.0 % 10/07/2024 12:19 AM [facility] NRBC Absolute <0.01 <0.01 x10(3)/mc L 10/07/2024 12:19 AM [facility] Neutrophil % 62.9 % 10/07/2024 12:19 AM [facility] Neutrophil Absolute (ANC) - Automated 7.09(H) 1.70 - 6.10 x10(3)/mc L 10/07/2024 12:19 AM [facility] Lymph % 28.3 % 10/07/2024 12:19 AM [facility] Lymph Absolute 3.19 0.90 - 3.20 x10(3)/mc L 10/07/2024 12:19 AM [facility] Monocyte % 5.7 % 10/07/2024 12:19 AM [facility] Monocyte Absolute 0.64 0.30 - 0.90 x10(3)/mc L 10/07/2024 12:19 AM [facility] Eos % 1.5 % 10/07/2024 12:19 AM [facility] Eos Absolute 0.17 0.00 - 0.40 x10(3)/mc L 10/07/2024 12:19 AM [facility] Basophil % 0.7 % 10/07/2024 12:19 AM [facility] Baso Absolute 0.08 0.00 - 0.10 x10(3)/mc L 10/07/2024 12:19 AM [facility] Immature Gran % 0.9 % 12:19 AM [facility] Immature Gran Absolute 0.10(H) 0.00 - 0.04 x10(3)/mc L 10/07/2024 12:19 AM [facility] Blood VENOUS BLOOD SPECIMEN / Unknown Venipuncture / Unknown 10/07/2024 12:06 AM EST 10/07/2024 12:11 AM EST Hayley Torres MD HEMATOLOGY ORDERABLE S [facility] [place] [address] * (ABNORMAL) Basic Metabolic Panel (10/07/2024 12:06 AM EST) Glucose 145 65 - 199 mg/dL 10/07/2024 12:40 AM [facility] Comment:Glucose Concentratio n >=200 mg/dL plus symptoms is consistent with Diabetes Mellitus. Blood Urea Nitrogen 18 10 - 20 mg/dL 10/07/2024 12:40 AM [facility] Creatinine 0.61(L) 0.80 - 1.50 mg/dL 10/07/2024 12:40 AM [facility] Sodium 139 135 - 145 mMol/L 10/07/2024 12:40 AM [facility] Potassium 4.0 3.5 - 5.0 mMol/L 10/07/2024 12:40 AM [facility] Chloride 104 98 - 107 mMol/L 10/07/2024 12:40 AM [facility] Carbon Dioxide 25 22 - 31 mMol/L 10/07/2024 12:40 AM [facility] Anion Gap 10 5 - 15 mMol/L 10/07/2024 12:40 AM [facility] Calcium 9.0 8.5 - 10.5 mg/dL 10/07/2024 12:40 AM [facility] Est Glomerular Filtration Rate - Male 117 mL/min/1. 73 m?? 10/07/2024 12:40 AM [facility] Comment: This patient's estimated GFR [...] CHEMISTRY ORDERABLES [facility] [place] [address] * Phosphorus (10/07/2024 12:06 AM EST) Phosphorus 4.2 2.5 - 4.5 mg/dL 10/07/2024 12:40 AM EST [facility] Blood VENOUS BLOOD SPECIMEN / Unknown Venipuncture / Unknown 10/07/2024 12:06 AM EST 10/07/2024 12:11 AM EST Hayley Torres MD CHEMISTRY ORDERABLES Performing Organization Address City/[facility]/ZIP Co de Phone Number [facility] [place] [address] * Magnesium (10/07/2024 12:06 AM EST) Magnesium 0.85 0.69 - 1.07 mMol/L 10/07/2024 12:40 AM EST [facility] Blood VENOUS BLOOD SPECIMEN / Unknown Venipuncture / Unknown 10/07/2024 12:06 AM EST 10/07/2024 12:11 AM EST Hayley Torres MD CHEMISTRY ORDERABLES Performing Organization Address [facility] Co de Phone Number [facility] [place] [place] [address] * POC, GLUCOSE (10/07/2024 12:04 AM EST) Glucometer, POC 149 65 - 199 mg/dL 10/07/2024 12:04 AM EST [facility] Comment:Supplemental ranges: <140 mg/dL before meals <180 mg/dL all other times of the day. Blood CAPILLARY BLOOD / Unknown 10/07/2024 12:04 AM EST 10/07/2024 12:05 AM EST Hayley Torres MD POINT OF CARE TEST O RDERABLES Performing Organization Address City/[facility]/ZIP Co de Phone Number [facility] [place] [address] * POC, GLUCOSE (10/06/2024 7:24 PM EST) Glucometer, POC 151 65 - 199 mg/dL 10/06/2024 7:24 PM EST [facility] Comment:Supplemental ranges: <140 mg/dL before meals <180 mg/dL all other times of the day. Blood CAPILLARY BLOOD / Unknown 10/06/2024 7:24 PM EST 10/06/2024 7:24 PM EST Hayley Torres MD POINT OF CARE TEST O GILDA Performing Organization Address City/[facility]/ZIP Co de Phone Number [facility] [place] [address] * POC, GLUCOSE (10/06/2024 5:32 PM EST) Glucometer, POC 126 65 - 199 mg/dL 10/06/2024 5:32 PM EST [facility] Comment:Supplemental ranges: <140 mg/dL before meals <180 mg/dL all other times of the day. Blood CAPILLARY BLOOD / Unknown 10/06/2024 5:32 PM EST 10/06/2024 5:32 PM EST Hayley Torres MD POINT OF CARE TEST O GILDA Performing Organization Address City/[facility]/ZIP Co de Phone Number [facility] [place] [address] * XR PICC Placement Over 5 Years with Imaging Guidance (IV Team) (10/06/2024 3:04 PM EST) WORKSTATION ID [id number] DH RAD Anatomical Region Laterality Modality N/A [...] questions please contact the health health care coach that requested your imaging first. ? Electronically signed by: Charles Hamilton MD, [facility] ??([phone]), at 10/06/2024 3:43 PM Narrative 10/06/2024 3:43 [...] have questions please contactthe health health care coach that requested your imaging first. Electronically signed by: Charles Hamilton MD, [facility]([phone]), at 10/06/2024 3:43 PM Hayley Torres MD IMG FLUORO ORDERABLE S * Place PICC Line: Contact Vascular Access Page [phone] Extremity to exclude: No restrictions; Is PICC [...] to the planned procedure. Hand Hygiene: The account receivable clerk did perform hand hygiene prior to line insertion. Catheter type: PICC Lot number: [id number] Procedure Technique: Skin was prepped with chlorhexidine. [...] - 199 mg/dL 10/06/2024 12:12 PM EST [facility] Comment:Supplemental ranges: <140 mg/dL before meals <180 mg/dL all other times of the day. Blood CAPILLARY BLOOD / Unknown 10/06/2024 12:12 PM EST 10/06/2024 12:12 PM EST Halyey Torres MD POINT OF CARE TEST O GILDA Performing Organization Address [facility] Co de Phone Number [facility] [place] [address] * (ABNORMAL) POC, GLUCOSE (10/06/2024 7:34 AM EST) Glucometer, POC 209(H) 65 - 199 mg/dL 10/06/2024 7:34 AM EST [facility] Comment:Supplemental ranges: <140 mg/dL before meals <180 mg/dL all other times of the day. Blood CAPILLARY BLOOD / Unknown 10/06/2024 7:34 AM EST 10/06/2024 7:34 AM EST Hayley Torres MD POINT OF CARE TEST O GILDA Performing Organization Address City/[facility]/ZIP Co de Phone Number [facility] [place] [place] [address] * POC, GLUCOSE (10/06/2024 3:29 AM EST) Glucometer, POC 151 65 - 199 mg/dL 10/06/2024 3:29 AM EST [facility] Comment:Supplemental ranges: <140 mg/dL before meals <180 mg/dL all other times of the day. Blood CAPILLARY BLOOD / Unknown 10/06/2024 3:29 AM EST 10/06/2024 3:29 AM EST Hayley Torres MD POINT OF CARE TEST O RDERABLES Performing Organization Address City/[facility]/ZIP Co de Phone Number [facility] [place] [address] * Vancomycin Level, Random (10/06/2024 12:03 AM EST) Pathologist [facility] Vancomycin, Random 20.5 mg/L 2023 9:00 AM EST [facility] Comment:This level is for de termination of the patient's vancomycin lvhx-ybsvh-vpa-curve (AUC) value. Contact the inpatient pharmacy for interpretation. Blood VENOUS BLOOD SPECIMEN / Unknown Venipuncture / Unknown 10/06/2024 12:03 AM EST 10/06/2024 12:15 AM EST Hayley Torres MD CHEMISTRY ORDERABLES Performing Organization Address City/[facility]/ZIP Co de Phone Number [facility] [place] [place] [address] * (ABNORMAL) CBC (with Diff) (10/06/2024 12:03 AM EST) White Blood Cell 12.26(H) 4.00 - 9.50 x10(3)/mc L 10/06/2024 12:19 AM EST [facility] Red Blood Cell 3.49(L) 4.58 - 5.54 x10(6)/mc L 10/06/2024 12:19 AM [facility] Hemoglobin 10.1(L) 13.7 - 16.5 g/dL 10/06/2024 12:19 AM [facility] Hematocrit 30.9(L) 40.5 - 48.5 % 10/06/2024 12:19 AM [facility] Mean Cell Volume 88.5 82.9 - 93.1 fL 10/06/2024 12:19 AM [facility] Mean Cell Hemoglobin 28.9 27.5 - 32.1 pg 10/06/2024 12:19 AM [facility] Mean Cell Hemoglobin Concentration 32.7 32.0 - 35.7 g/dL 10/06/2024 12:19 AM [facility] Platelet 772(H) 145 - 357 x10(3)/mc L 10/06/2024 12:19 AM [facility] Mean Platelet Volume 9.0 7.6 - 12.9 fL 10/06/2024 12:19 AM [facility] RDW Standard Deviation 46.0(H) 36.0 - 45.0 fL 10/06/2024 12:19 AM [facility] RDW coefficient of variation 14.5(H) 11.4 - 13.8 % 10/06/2024 12:19 AM [facility] NRBC% auto 0.0 % 10/06/2024 12:19 AM [facility] NRBC Absolute <0.01 <0.01 x10(3)/mc L 10/06/2024 12:19 AM [facility] Neutrophil % 66.7 % 10/06/2024 12:19 AM [facility] Neutrophil Absolute (ANC) - Automated 8.18(H) 1.70 - 6.10 x10(3)/mc L 10/06/2024 12:19 AM [facility] Lymph % 24.1 % 10/06/2024 12:19 AM [facility] Lymph Absolute 2.95 0.90 - 3.20 x10(3)/mc L 10/06/2024 12:19 AM [facility] Monocyte % 6.2 % 10/06/2024 12:19 AM [facility] Monocyte Absolute 0.76 0.30 - 0.90 x10(3)/mc L 10/06/2024 12:19 AM [facility] Eos % 1.3 % 10/06/2024 12:19 AM [facility] Eos Absolute 0.16 0.00 - 0.40 x10(3)/mc L 10/06/2024 12:19 AM [facility] Basophil % 0.5 % 10/06/2024 12:19 AM [facility] Baso Absolute 0.06 0.00 - 0.10 x10(3)/mc L 10/06/2024 12:19 AM [facility] Immature Gran % 1.2 % 12:19 AM [facility] Immature Gran Absolute 0.15(H) 0.00 - 0.04 x10(3)/mc L 10/06/2024 12:19 AM [facility] Blood VENOUS BLOOD SPECIMEN / Unknown Venipuncture / Unknown 10/06/2024 12:03 AM EST 10/06/2024 12:15 AM EST Hayley Torres MD HEMATOLOGY ORDERABLE S [facility] [place] [address] * Basic Metabolic Panel (10/06/2024 12:03 AM EST) Glucose 94 65 - 199 mg/dL 10/06/2024 12:44 AM [facility] Comment:Glucose Concentratio n >=200 mg/dL plus symptoms is consistent with Diabetes Mellitus. Blood Urea Nitrogen 17 10 - 20 mg/dL 10/06/2024 12:44 AM [facility] Creatinine 0.85 0.80 - 1.50 mg/dL 10/06/2024 12:44 AM [facility] Sodium 139 135 - 145 mMol/L 10/06/2024 12:44 AM [facility] Potassium 4.3 3.5 - 5.0 mMol/L 10/06/2024 12:44 AM [facility] Chloride 103 98 - 107 mMol/L 10/06/2024 12:44 AM EST [facility] Carbon Dioxide 22 22 - 31 mMol/L 10/06/2024 12:44 AM EST [facility] Anion Gap 14 5 - 15 mMol/L 10/06/2024 12:44 AM EST [facility] Calcium 8.8 8.5 - 10.5 mg/dL 10/06/2024 12:44 AM EST [facility] Est Glomerular Filtration Rate - Male 106 mL/min/1. 73 m?? 10/06/2024 12:44 AM EST [facility] [...] CHEMISTRY ORDERABLES [facility] [place] [address] * Phosphorus (10/06/2024 12:03 AM EST) Phosphorus 4.3 2.5 - 4.5 mg/dL 10/06/2024 12:44 AM EST [facility] Blood VENOUS BLOOD SPECIMEN / Unknown Venipuncture / Unknown 10/06/2024 12:03 AM EST 10/06/2024 12:15 AM EST Hayley Torres MD CHEMISTRY ORDERABLES [facility] [place] [address] * Magnesium (10/06/2024 12:03 AM EST) Magnesium 0.83 0.69 - 1.07 mMol/L 10/06/2024 12:44 AM EST [facility] Blood VENOUS BLOOD SPECIMEN / Unknown Venipuncture / Unknown 10/06/2024 12:03 AM EST 10/06/2024 12:15 AM EST Hayley Torres MD CHEMISTRY ORDERABLES Performing Organization Address City/[facility]/ZIP Co de Phone Number [facility] [place] [address] * POC, GLUCOSE (10/06/2024 12:02 AM EST) Glucometer, POC 98 65 - 199 mg/dL 10/06/2024 12:02 AM EST [facility] Comment:Supplemental ranges: <140 mg/dL before meals <180 mg/dL all other times of the day. Blood CAPILLARY BLOOD / Unknown 10/06/2024 12:02 AM EST 10/06/2024 12:02 AM EST Hayley Torres MD POINT OF CARE TEST O RDERAHERNANDEZ Performing Organization Address City/[facility]/ZIP Co de Phone Number [facility] [place] [address] * POC, GLUCOSE (10/05/2024 7:22 PM EST) Glucometer, POC 186 65 - 199 mg/dL 10/05/2024 7:23 PM EST [facility] Comment:Supplemental ranges: <140 mg/dL before meals <180 mg/dL all other times of the day. Blood CAPILLARY BLOOD / Unknown 10/05/2024 7:22 PM EST 10/05/2024 7:23 PM EST Hayley Torres MD POINT OF CARE TEST O RDERABLES Performing Organization Address [facility] Co de Phone Number [facility] [place] [address] * POC, GLUCOSE (10/05/2024 5:35 PM EST) Glucometer, POC 177 65 - 199 mg/dL 10/05/2024 5:35 PM EST [facility] Comment:Supplemental ranges: <140 mg/dL before meals <180 mg/dL all other times of the day. Blood CAPILLARY BLOOD / Unknown 10/05/2024 5:35 PM EST 10/05/2024 5:35 PM EST Hayley Torres MD POINT OF CARE TEST O RDERAHERNANDEZ Performing Organization Address [facility] de Phone Number [facility] [place] [address] * POC, GLUCOSE (10/05/2024 3:57 PM EST) Glucometer, POC 141 65 - 199 mg/dL 10/05/2024 3:57 PM EST [facility] Comment:Supplemental ranges: <140 mg/dL before meals <180 mg/dL all other times of the day. Blood CAPILLARY BLOOD / Unknown 10/05/2024 3:57 PM EST 10/05/2024 3:57 PM EST Hayley Torres MD POINT OF CARE TEST O RDERAHERNANDEZ Performing Organization Address [facility] Co de Phone Number [facility] [place] [address] * POC, GLUCOSE (10/05/2024 11:50 AM EST) Glucometer, POC 134 65 - 199 mg/dL 10/05/2024 11:50 AM EST [facility] Comment:Supplemental ranges: <140 mg/dL before meals <180 mg/dL all other times of the day. Blood CAPILLARY BLOOD / Unknown 10/05/2024 11:50 AM EST 10/05/2024 11:50 AM EST Hayley Torres MD POINT OF CARE TEST O RDERAHERNANDEZ Performing Organization Address City/[facility]/ZIP Co de Phone Number [facility] [place] [address] * POC, GLUCOSE (10/05/2024 7:51 AM EST) Glucometer, POC 114 65 - 199 mg/dL 10/05/2024 7:51 AM EST [facility] Comment:Supplemental ranges: <140 mg/dL before meals <180 mg/dL all other times of the day. Blood CAPILLARY BLOOD / Unknown 10/05/2024 7:51 AM EST 10/05/2024 7:51 AM EST Hayley Torres MD POINT OF CARE TEST O DIMITRIERAHERNANDEZ Performing Organization Address [facility] de Phone Number [facility] [place] [address] * POC, GLUCOSE (10/05/2024 4:18 AM EST) Glucometer, POC 147 65 - 199 mg/dL 10/05/2024 4:18 AM EST [facility] Comment:Supplemental ranges: <140 mg/dL before meals <180 mg/dL all other times of the day. Blood CAPILLARY BLOOD / Unknown 10/05/2024 4:18 AM EST 10/05/2024 4:18 AM EST Hayley Torres MD POINT OF CARE TEST O GILDA Performing Organization Address City/[facility]/ZIP Co de Phone Number [facility] [place] [address] * (ABNORMAL) CBC (with Diff) (10/04/2024 11:50 PM EST) White Blood Cell 12.73(H) 4.00 - 9.50 x10(3)/mc L 10/05/2024 12:10 AM EST [facility] Red Blood Cell 3.45(L) 4.58 - 5.54 x10(6)/mc L 10/05/2024 12:10 AM [facility] Hemoglobin 9.8(L) 13.7 - 16.5 g/dL 10/05/2024 12:10 AM [facility] Hematocrit 30.6(L) 40.5 - 48.5 % 10/05/2024 12:10 AM [facility] Mean Cell Volume 88.7 82.9 - 93.1 fL 10/05/2024 12:10 AM [facility] Mean Cell Hemoglobin 28.4 27.5 - 32.1 pg 10/05/2024 12:10 AM [facility] Mean Cell Hemoglobin Concentration 32.0 32.0 - 35.7 g/dL 10/05/2024 12:10 AM [facility] Platelet 709(H) 145 - 357 x10(3)/mc L 10/05/2024 12:10 AM [facility] Mean Platelet Volume 8.9 7.6 - 12.9 fL 10/05/2024 12:10 AM [facility] RDW Standard Deviation 45.4(H) 36.0 - 45.0 fL 10/05/2024 12:10 AM [facility] RDW coefficient of variation 14.3(H) 11.4 - 13.8 % 10/05/2024 12:10 AM [facility] NRBC% auto 0.0 % 10/05/2024 12:10 AM [facility] NRBC Absolute <0.01 <0.01 x10(3)/mc L 10/05/2024 12:10 AM [facility] Neutrophil % 68.5 % 10/05/2024 12:10 AM [facility] Neutrophil Absolute (ANC) - Automated 8.72(H) 1.70 - 6.10 x10(3)/mc L 10/05/2024 12:10 AM [facility] Lymph % 21.3 % 10/05/2024 12:10 AM EST [facility] Lymph Absolute 2.71 0.90 - 3.20 x10(3)/mc L 10/05/2024 12:10 AM EST [facility] Monocyte % 5.5 % 10/05/2024 12:10 AM [facility] Monocyte Absolute 0.70 0.30 - 0.90 x10(3)/mc L 10/05/2024 12:10 AM [facility] Eos % 1.6 % 10/05/2024 12:10 AM [facility] Eos Absolute 0.20 0.00 - 0.40 x10(3)/mc L 10/05/2024 12:10 AM [facility] Basophil % 0.5 % 10/05/2024 12:10 AM [facility] Baso Absolute 0.07 0.00 - 0.10 x10(3)/mc L 10/05/2024 12:10 AM [facility] Immature Gran % 2.6 % 12:10 AM [facility] Immature Gran Absolute 0.33(H) 0.00 - 0.04 x10(3)/mc L 10/05/2024 12:10 AM [facility] Blood VENOUS BLOOD SPECIMEN / Unknown Venipuncture / Unknown 10/04/2024 11:50 PM EST 10/05/2024 12:03 AM EST Hayley Torres MD HEMATOLOGY ORDERABLE S [facility] [place] [place] [address] * (ABNORMAL) Basic Metabolic Panel (10/04/2024 11:50 PM EST) Glucose 104 65 - 199 mg/dL 10/05/2024 12:35 AM EST [facility] Comment:Glucose Concentratio n >=200 mg/dL plus symptoms is consistent with Diabetes Mellitus. Blood Urea Nitrogen 13 10 - 20 mg/dL 10/05/2024 12:35 AM [facility] Creatinine 0.55(L) 0.80 - 1.50 mg/dL 10/05/2024 12:35 AM [facility] Sodium 140 135 - 145 mMol/L 10/05/2024 12:35 AM [facility] Potassium 3.9 3.5 - 5.0 mMol/L 10/05/2024 12:35 AM [facility] Chloride 105 98 - 107 mMol/L 10/05/2024 12:35 AM [facility] Carbon Dioxide 24 22 - 31 mMol/L 10/05/2024 12:35 AM [facility] Anion Gap 11 5 - 15 mMol/L 10/05/2024 12:35 AM [facility] Calcium 9.0 8.5 - 10.5 mg/dL 10/05/2024 12:35 AM [facility] Est Glomerular Filtration Rate - Male 121 mL/min/1. 73 m?? 10/05/2024 12:35 AM [facility] Comment: This patient's estimated GFR [...] CHEMISTRY ORDERABLES [facility] [place] [place] [address] * Phosphorus (10/04/2024 11:50 PM EST) Phosphorus 4.2 2.5 - 4.5 mg/dL 10/05/2024 12:35 AM EST [facility] Blood VENOUS BLOOD SPECIMEN / Unknown Venipuncture / Unknown 10/04/2024 11:50 PM EST 10/05/2024 12:03 AM EST Hayley Torres MD CHEMISTRY ORDERABLES Performing Organization Address City/[facility]/ZIP Co de Phone Number [facility] [place] [address] * Magnesium (10/04/2024 11:50 PM EST) Magnesium 0.89 0.69 - 1.07 mMol/L 10/05/2024 12:35 AM EST [facility] Blood VENOUS BLOOD SPECIMEN / Unknown Venipuncture / Unknown 10/04/2024 11:50 PM EST 10/05/2024 12:03 AM EST Hayley Torres MD CHEMISTRY ORDERABLES Performing Organization Address [facility]/ZIP Co de Phone Number [facility] [place] [place] [address] * POC, GLUCOSE (10/04/2024 11:36 PM EST) [facility] Glucometer, POC 121 65 - 199 mg/dL 10/04/2024 11:36 PM EST [facility] Comment:Supplemental ranges: <140 mg/dL before meals <180 mg/dL all other times of the day. Blood CAPILLARY BLOOD / Unknown 10/04/2024 11:36 PM EST 10/04/2024 11:36 PM EST Hayley Torres MD POINT OF CARE TEST O RDERABLES Performing Organization Address City/[facility]/ZIP Co de Phone Number [facility] [place] [place] [address] * POC, GLUCOSE (10/04/2024 7:32 PM EST) Glucometer, POC 163 65 - 199 mg/dL 10/04/2024 7:32 PM EST [facility] Comment:Supplemental ranges: <140 mg/dL before meals <180 mg/dL all other times of the day. Blood CAPILLARY BLOOD / Unknown 10/04/2024 7:32 PM EST 10/04/2024 7:32 PM EST Hayley Torres MD POINT OF CARE TEST O RDERABLES [facility] [place] [id number] * EKG 12 Lead (10/04/2024 7:14 PM EST) Ventricular rate 81 BPM MUSE SYSTEM Atrial Rate 81 BPM MUSE SYSTEM P-R Interval 174 ms MUSE SYSTEM QRS Duration 112 ms MUSE SYSTEM Q-T Interval 422 ms MUSE SYSTEM QTC Calculated (Bezet) 490 ms MUSE SYSTEM Calculated P [place] 34 degrees MUSE SYSTEM Calculated R [place] 11 degrees MUSE SYSTEM Calculated T [place] 59 degrees MUSE SYSTEM INTERPRETATION Normal sinus rhythm Cannot rule out Inferior infarct , age undetermined Nonspecific T wave abnormality Borderline ECG When compared with ECG of 29-MAY-2024 14:51, Nonspecific T wave abnormality now evident in Lateral leads Confirmed by MD Robert, Deandre Florencio ([id number]) on 10/05/2024 3:35:42 PM MUSE SYSTEM 10/04/2024 7:14 PM EST 10/05/2024 3:35 PM EST Hayley Torres MD ECG ORDERABLES MUSE SYSTEM * POC, GLUCOSE (10/04/2024 5:07 PM EST) Glucometer, POC 95 65 - 199 mg/dL 10/04/2024 5:07 PM EST [facility] Comment:Supplemental ranges: <140 mg/dL before meals <180 mg/dL all other times of the day. Blood CAPILLARY BLOOD / Unknown 10/04/2024 5:07 PM EST 10/04/2024 5:07 PM EST Hayley Torres MD POINT OF CARE TEST O GILDA Performing Organization Address [facility] Co de Phone Number [facility] [place] [address] * POC, GLUCOSE (10/04/2024 4:49 PM EST) Glucometer, POC 70 65 - 199 mg/dL 10/04/2024 4:50 PM EST [facility] Comment:Supplemental ranges: <140 mg/dL before meals <180 mg/dL all other times of the day. Blood CAPILLARY BLOOD / Unknown 10/04/2024 4:49 PM EST 10/04/2024 4:50 PM EST Hayley Torres MD POINT OF CARE TEST O GILDA Performing Organization Address [facility] de Phone Number [facility] [place] [address] * POC, GLUCOSE (10/04/2024 11:49 AM EST) Glucometer, POC 93 65 - 199 mg/dL 10/04/2024 11:49 AM EST [facility] Comment:Supplemental ranges: <140 mg/dL before meals <180 mg/dL all other times of the day. Blood CAPILLARY BLOOD / Unknown 10/04/2024 11:49 AM EST 10/04/2024 11:49 AM EST Hayley Torres MD POINT OF CARE TEST O GILDA Performing Organization Address [facility] Co de Phone Number [facility] [place] [address] * Vancomycin, trough (10/04/2024 7:53 AM EST) Vancomycin, Trough 19.8 10.0 - 20.0 mg/L 10/04/2024 9:16 AM EST [facility] Comment: Varies according to infection source. Blood VENOUS BLOOD SPECIMEN / Unknown Venipuncture / Unknown 10/04/2024 7:53 AM EST 10/04/2024 8:11 AM EST Hayley Torres MD CHEMISTRY ORDERABLES Performing Organization Address [facility] Co de Phone Number [facility] [place] [address] * POC, GLUCOSE (10/04/2024 7:51 AM EST) Glucometer, POC 105 65 - 199 mg/dL 10/04/2024 7:52 AM EST [facility] Comment:Supplemental ranges: <140 mg/dL before meals <180 mg/dL all other times of the day. Blood CAPILLARY BLOOD / Unknown 10/04/2024 7:51 AM EST 10/04/2024 7:52 AM EST Hayley Torres MD POINT OF CARE TEST O GILDA Performing Organization Address [facility] Co de Phone Number [facility] [place] [address] * POC, GLUCOSE (10/04/2024 3:53 AM EST) Glucometer, POC 90 65 - 199 mg/dL 10/04/2024 3:53 AM EST [facility] Comment:Supplemental ranges: <140 mg/dL before meals <180 mg/dL all other times of the day. Blood CAPILLARY BLOOD / Unknown 10/04/2024 3:53 AM EST 10/04/2024 3:53 AM EST Hayley Torres MD POINT OF CARE TEST O GILDA Performing Organization Address [facility] Co de Phone Number [facility] [place] [place] [address] * (ABNORMAL) CBC (with Diff) (10/04/2024 12:08 AM EST) White Blood Cell 12.58(H) 4.00 - 9.50 x10(3)/mc L 10/04/2024 12:51 AM [facility] Red Blood Cell 3.28(L) 4.58 - 5.54 x10(6)/mc L 10/04/2024 12:51 AM [facility] Hemoglobin 9.4(L) 13.7 - 16.5 g/dL 10/04/2024 12:51 AM [facility] Hematocrit 28.8(L) 40.5 - 48.5 % 10/04/2024 12:51 AM [facility] Mean Cell Volume 87.8 82.9 - 93.1 fL 10/04/2024 12:51 AM [facility] Mean Cell Hemoglobin 28.7 27.5 - 32.1 pg 10/04/2024 12:51 AM [facility] Mean Cell Hemoglobin Concentration 32.6 32.0 - 35.7 g/dL 10/04/2024 12:51 AM [facility] Platelet 670(H) 145 - 357 x10(3)/mc L 10/04/2024 12:51 AM [facility] Mean Platelet Volume 9.1 7.6 - 12.9 fL 10/04/2024 12:51 AM [facility] RDW Standard Deviation 44.8 36.0 - 45.0 fL 10/04/2024 12:51 AM [facility] RDW coefficient of variation 13.9(H) 11.4 - 13.8 % 10/04/2024 12:51 AM [facility] NRBC% auto 0.0 % 10/04/2024 12:51 AM [facility] NRBC Absolute <0.01 <0.01 x10(3)/mc L 10/04/2024 12:51 AM [facility] Neutrophil % 60.3 % 10/04/2024 12:51 AM [facility] Neutrophil Absolute (ANC) - Automated 7.57(H) 1.70 - 6.10 x10(3)/mc L 10/04/2024 12:51 AM [facility] Lymph % 27.4 % 10/04/2024 12:51 AM [facility] Lymph Absolute 3.45(H) 0.90 - 3.20 x10(3)/mc L 10/04/2024 12:51 AM [facility] Monocyte % 5.4 % 10/04/2024 12:51 AM [facility] Monocyte Absolute 0.68 0.30 - 0.90 x10(3)/mc L 10/04/2024 12:51 AM [facility] Eos % 1.5 % 10/04/2024 12:51 AM [facility] Eos Absolute 0.19 0.00 - 0.40 x10(3)/mc L 10/04/2024 12:51 AM [facility] Basophil % 0.6 % 10/04/2024 12:51 AM [facility] Baso Absolute 0.08 0.00 - 0.10 x10(3)/mc L 10/04/2024 12:51 AM [facility] Immature Gran % 4.8 % 12:51 AM [facility] Immature Gran Absolute 0.61(H) 0.00 - 0.04 x10(3)/mc L 10/04/2024 12:51 AM [facility] Blood VENOUS BLOOD SPECIMEN / Unknown Venipuncture / Unknown 10/04/2024 12:08 AM EST 10/04/2024 12:15 AM EST Hayley Torres MD HEMATOLOGY ORDERABLE S [facility] [place] [address] * (ABNORMAL) Basic Metabolic Panel (10/04/2024 12:08 AM EST) Glucose 135 65 - 199 mg/dL 10/04/2024 12:53 AM [facility] Comment:Glucose Concentratio n >=200 mg/dL plus symptoms is consistent with Diabetes Mellitus. Blood Urea Nitrogen 19 10 - 20 mg/dL 10/04/2024 12:53 AM [facility] Creatinine 0.56(L) 0.80 - 1.50 mg/dL 10/04/2024 12:53 AM [facility] Sodium 138 135 - 145 mMol/L 10/04/2024 12:53 AM [facility] Potassium 4.4 3.5 - 5.0 mMol/L 10/04/2024 12:53 AM [facility] Chloride 105 98 - 107 mMol/L 10/04/2024 12:53 AM [facility] Carbon Dioxide 24 22 - 31 mMol/L 10/04/2024 12:53 AM [facility] Anion Gap 9 5 - 15 mMol/L 10/04/2024 12:53 AM [facility] Calcium 8.7 8.5 - 10.5 mg/dL 10/04/2024 12:53 AM [facility] Est Glomerular Filtration Rate - Male 120 mL/min/1. 73 m?? 10/04/2024 12:53 AM [facility] Comment: This patient's estimated GFR [...] CHEMISTRY ORDERABLES [facility] [place] [address] * Phosphorus (10/04/2024 12:08 AM EST) Phosphorus 3.7 2.5 - 4.5 mg/dL 10/04/2024 12:53 AM EST [facility] Blood VENOUS BLOOD SPECIMEN / Unknown Venipuncture / Unknown 10/04/2024 12:08 AM EST 10/04/2024 12:15 AM EST Hayley Torres MD CHEMISTRY ORDERABLES [facility] [place] [address] * Magnesium (10/04/2024 12:08 AM EST) Magnesium 0.89 0.69 - 1.07 mMol/L 10/04/2024 12:53 AM EST [facility] Blood VENOUS BLOOD SPECIMEN / Unknown Venipuncture / Unknown 10/04/2024 12:08 AM EST 10/04/2024 12:15 AM EST Hayley Torres MD CHEMISTRY ORDERABLES Performing Organization Address City/[facility]/ZIP Co de Phone Number [facility] [place] [address] * POC, GLUCOSE (10/04/2024 12:01 AM EST) Glucometer, POC 132 65 - 199 mg/dL 10/04/2024 12:02 AM EST [facility] Comment:Supplemental ranges: <140 mg/dL before meals <180 mg/dL all other times of the day. Blood CAPILLARY BLOOD / Unknown 10/04/2024 12:01 AM EST 10/04/2024 12:02 AM EST Hayley Torres MD POINT OF CARE TEST O RDERABLES [facility] [place] [place] [address] * POC, GLUCOSE (10/03/2024 7:56 PM EST) Glucometer, POC 123 65 - 199 mg/dL 10/03/2024 7:56 PM EST [facility] Comment:Supplemental ranges: <140 mg/dL before meals <180 mg/dL all other times of the day. Blood CAPILLARY BLOOD / Unknown 10/03/2024 7:56 PM EST 10/03/2024 7:57 PM EST Hayley Torres MD POINT OF CARE TEST O GILDA Performing Organization Address City/[facility]/ZIP Co de Phone Number [facility] [place] [address] * POC, GLUCOSE (10/03/2024 5:29 PM EST) Glucometer, POC 182 65 - 199 mg/dL 10/03/2024 5:30 PM EST [facility] Comment:Supplemental ranges: <140 mg/dL before meals <180 mg/dL all other times of the day. Blood CAPILLARY BLOOD / Unknown 10/03/2024 5:29 PM EST 10/03/2024 5:30 PM EST Hayley Torres MD POINT OF CARE TEST O GILDA [facility] [place] [place] [address] * POC, GLUCOSE (10/03/2024 12:54 PM EST) Glucometer, POC 128 65 - 199 mg/dL 10/03/2024 12:54 PM EST [facility] Comment:Supplemental ranges: <140 mg/dL before meals <180 mg/dL all other times of the day. Blood CAPILLARY BLOOD / Unknown 10/03/2024 12:54 PM EST 10/03/2024 12:54 PM EST Hayley Torres MD POINT OF CARE TEST O GILDA Performing Organization Address [facility] Co de Phone Number [facility] [place] [place] [address] * POC, GLUCOSE (10/03/2024 7:59 AM EST) Glucometer, POC 115 65 - 199 mg/dL 10/03/2024 7:59 AM EST [facility] Comment:Supplemental ranges: <140 mg/dL before meals <180 mg/dL all other times of the day. Blood CAPILLARY BLOOD / Unknown 10/03/2024 7:59 AM EST 10/03/2024 7:59 AM EST Hayley Torres MD POINT OF CARE TEST O GILDA Performing Organization Address [facility] de Phone Number [facility] [place] [place] [address] * POC, GLUCOSE (10/03/2024 5:32 AM EST) Glucometer, POC 119 65 - 199 mg/dL 10/03/2024 5:32 AM EST [facility] Comment:Supplemental ranges: <140 mg/dL before meals <180 mg/dL all other times of the day. Blood CAPILLARY BLOOD / Unknown 10/03/2024 5:32 AM EST 10/03/2024 5:32 AM EST Hayley Torres MD POINT OF CARE TEST O GILDA Performing Organization Address [facility] Co de Phone Number [facility] [place] [address] * POC, GLUCOSE (10/03/2024 4:16 AM EST) Glucometer, POC 152 65 - 199 mg/dL 10/03/2024 4:17 AM EST [facility] Comment:Supplemental ranges: <140 mg/dL before meals <180 mg/dL all other times of the day. Blood CAPILLARY BLOOD / Unknown 10/03/2024 4:16 AM EST 10/03/2024 4:17 AM EST Hayley Torres MD POINT OF CARE TEST O GILDA [facility] [place] [address] * (ABNORMAL) POC, GLUCOSE (10/03/2024 2:02 AM EST) Glucometer, POC 225(H) 65 - 199 mg/dL 10/03/2024 2:02 AM EST [facility] Comment:Supplemental ranges: <140 mg/dL before meals <180 mg/dL all other times of the day. Blood CAPILLARY BLOOD / Unknown 10/03/2024 2:02 AM EST 10/03/2024 2:02 AM EST Hayley Torres MD POINT OF CARE TEST O GILDA Performing Organization Address City/[facility]/ZIP Co de Phone Number [facility] [place] [place] [address] * (ABNORMAL) CBC (with Diff) (10/03/2024 12:27 AM EST) Pathologist [facility] White Blood Cell 15.33(H) 4.00 - 9.50 x10(3)/mc L 10/03/2024 12:51 AM [facility] Red Blood Cell 3.59(L) 4.58 - 5.54 x10(6)/mc L 10/03/2024 12:51 AM [facility] Hemoglobin 10.4(L) 13.7 - 16.5 g/dL 10/03/2024 12:51 AM [facility] Hematocrit 31.2(L) 40.5 - 48.5 % 10/03/2024 12:51 AM [facility] Mean Cell Volume 86.9 82.9 - 93.1 fL 10/03/2024 12:51 AM [facility] Mean Cell Hemoglobin 29.0 27.5 - 32.1 pg 10/03/2024 12:51 AM [facility] Mean Cell Hemoglobin Concentration 33.3 32.0 - 35.7 g/dL 10/03/2024 12:51 AM [facility] Platelet 693(H) 145 - 357 x10(3)/mc L 10/03/2024 12:51 AM [facility] Mean Platelet Volume 9.2 7.6 - 12.9 fL 10/03/2024 12:51 AM [facility] RDW Standard Deviation 42.4 36.0 - 45.0 fL 10/03/2024 12:51 AM [facility] RDW coefficient of variation 13.6 11.4 - 13.8 % 10/03/2024 12:51 AM [facility] NRBC% auto 0.0 % 10/03/2024 12:51 AM [facility] NRBC Absolute <0.01 <0.01 x10(3)/mc L 10/03/2024 12:51 AM [facility] Neutrophil % 77.1 % 10/03/2024 12:51 AM [facility] Neutrophil Absolute (ANC) - Automated 11.83(H) 1.70 - 6.10 x10(3)/mc L 10/03/2024 12:51 AM [facility] Lymph % 13.4 % 10/03/2024 12:51 AM [facility] Lymph Absolute 2.05 0.90 - 3.20 x10(3)/mc L 10/03/2024 12:51 AM [facility] Monocyte % 2.9 % 10/03/2024 12:51 AM [facility] Monocyte Absolute 0.45 0.30 - 0.90 x10(3)/mc L 10/03/2024 12:51 AM [facility] Eos % 0.5 % 10/03/2024 12:51 AM [facility] Eos Absolute 0.07 0.00 - 0.40 x10(3)/mc L 10/03/2024 12:51 AM [facility] Basophil % 0.4 % 10/03/2024 12:51 AM [facility] Baso Absolute 0.06 0.00 - 0.10 x10(3)/mc L 10/03/2024 12:51 AM [facility] Immature Gran % 5.7 % 12:51 AM [facility] Immature Gran Absolute 0.87(H) 0.00 - 0.04 x10(3)/mc L 10/03/2024 12:51 AM [facility] Blood VENOUS BLOOD SPECIMEN / Unknown Venipuncture / Unknown 10/03/2024 12:27 AM EST 10/03/2024 12:47 AM EST Hayley Torres MD HEMATOLOGY ORDERABLE S [facility] [place] [address] * (ABNORMAL) Basic Metabolic Panel (10/03/2024 12:27 AM EST) Glucose 208(H) 65 - 199 mg/dL 10/03/2024 1:14 AM [facility] Comment:Glucose Concentratio n >=200 mg/dL plus symptoms is consistent with Diabetes Mellitus. Blood Urea Nitrogen 15 10 - 20 mg/dL 10/03/2024 1:14 AM [facility] Creatinine 0.51(L) 0.80 - 1.50 mg/dL 10/03/2024 1:14 AM [facility] Sodium 136 135 - 145 mMol/L 10/03/2024 1:14 AM [facility] Potassium 4.1 3.5 - 5.0 mMol/L 10/03/2024 1:14 AM [facility] Chloride 103 98 - 107 mMol/L 10/03/2024 1:14 AM [facility] Carbon Dioxide 20(L) 22 - 31 mMol/L 10/03/2024 1:14 AM EST [facility] Anion Gap 13 5 - 15 mMol/L 10/03/2024 1:14 AM EST [facility] Calcium 8.4(L) 8.5 - 10.5 mg/dL 10/03/2024 1:14 AM EST [facility] Est Glomerular Filtration Rate - Male 124 mL/min/1. 73 m?? 10/03/2024 1:14 AM EST [facility] [...] CHEMISTRY ORDERABLES [facility] [place] [address] * Phosphorus (10/03/2024 12:27 AM EST) Phosphorus 3.5 2.5 - 4.5 mg/dL 10/03/2024 1:14 AM EST [facility] Blood VENOUS BLOOD SPECIMEN / Unknown Venipuncture / Unknown 10/03/2024 12:27 AM EST 10/03/2024 12:47 AM EST Hayley Torres MD CHEMISTRY ORDERABLES [facility] [place] [address] * Magnesium (10/03/2024 12:27 AM EST) Magnesium 0.83 0.69 - 1.07 mMol/L 10/03/2024 1:14 AM EST [facility] Blood VENOUS BLOOD SPECIMEN / Unknown Venipuncture / Unknown 10/03/2024 12:27 AM EST 10/03/2024 12:47 AM EST Hayley Torres MD CHEMISTRY ORDERABLES [facility] [place] [address] * (ABNORMAL) POC, GLUCOSE (10/03/2024 12:13 AM EST) Glucometer, POC 255(H) 65 - 199 mg/dL 10/03/2024 12:14 AM EST [facility] Comment:Supplemental ranges: <140 mg/dL before meals <180 mg/dL all other times of the day. Blood CAPILLARY BLOOD / Unknown 10/03/2024 12:13 AM EST 10/03/2024 12:14 AM EST Hayley Torres MD POINT OF CARE TEST O RDERABLES Performing Organization Address City/[facility]/ZIP Co de Phone Number [facility] [place] [address] * POC, GLUCOSE (10/02/2024 8:17 PM EST) Glucometer, POC 177 65 - 199 mg/dL 10/02/2024 8:17 PM EST [facility] Comment:Supplemental ranges: <140 mg/dL before meals <180 mg/dL all other times of the day. Blood CAPILLARY BLOOD / Unknown 10/02/2024 8:17 PM EST 10/02/2024 8:17 PM EST Hayley Torres MD POINT OF CARE TEST O RDERABLES Performing Organization Address City/[facility]/ZIP Co de Phone Number [facility] [place] [address] * POC, GLUCOSE (10/02/2024 6:22 PM EST) Glucometer, POC 172 65 - 199 mg/dL 10/02/2024 6:22 PM EST [facility] Comment:Supplemental ranges: <140 mg/dL before meals <180 mg/dL all other times of the day. Blood CAPILLARY BLOOD / Unknown 10/02/2024 6:22 PM EST 10/02/2024 6:22 PM EST Hayley Torres MD POINT OF CARE TEST O GILDA [facility] [place] [address] * POC, GLUCOSE (10/02/2024 5:01 PM EST) Glucometer, POC 104 65 - 199 mg/dL 10/02/2024 5:01 PM EST [facility] Comment:Supplemental ranges: <140 mg/dL before meals <180 mg/dL all other times of the day. Blood CAPILLARY BLOOD / Unknown 10/02/2024 5:01 PM EST 10/02/2024 5:01 PM EST Hayley Torres MD POINT OF CARE TEST O GILDA Performing Organization Address City/[facility]/ZIP Co de Phone Number [facility] [place] [address] * POC, GLUCOSE (10/02/2024 3:05 PM EST) Glucometer, POC 113 65 - 199 mg/dL 10/02/2024 3:06 PM EST [facility] Comment:Supplemental ranges: <140 mg/dL before meals <180 mg/dL all other times of the day. Blood CAPILLARY BLOOD / Unknown 10/02/2024 3:05 PM EST 10/02/2024 3:06 PM EST Hayley Torres MD POINT OF CARE TEST O RDERABLES Performing Organization Address [facility] Co de Phone Number [facility] [place] [address] * POC, GLUCOSE (10/02/2024 11:12 AM EST) Glucometer, POC 146 65 - 199 mg/dL 10/02/2024 11:12 AM EST [facility] [facility] Comment:Supplemental ranges: <140 mg/dL before meals <180 mg/dL all other times of the day. Blood CAPILLARY BLOOD / Unknown 10/02/2024 11:12 AM EST 10/02/2024 11:12 AM EST Hayley Torres MD POINT OF CARE TEST O RDERAHERNANDEZ Performing Organization Address [facility] de Phone Number [facility] [place] [address] * POC, GLUCOSE (10/02/2024 8:12 AM EST) Glucometer, POC 131 65 - 199 mg/dL 10/02/2024 8:12 AM EST [facility] Comment:Supplemental ranges: <140 mg/dL before meals <180 mg/dL all other times of the day. Blood CAPILLARY BLOOD / Unknown 10/02/2024 8:12 AM EST 10/02/2024 8:12 AM EST Hayley Torres MD POINT OF CARE TEST O RDERAHERNANDEZ Performing Organization Address City/[facility] Co de Phone Number [facility] [place] [address] * POC, GLUCOSE (10/02/2024 4:19 AM EST) Glucometer, POC 131 65 - 199 mg/dL 10/02/2024 4:19 AM EST [facility] Comment:Supplemental ranges: <140 mg/dL before meals <180 mg/dL all other times of the day. Blood CAPILLARY BLOOD / Unknown 10/02/2024 4:19 AM EST 10/02/2024 4:19 AM EST Hayley Torres MD POINT OF CARE TEST O RDERABLES [facility] [place] [address] * Phosphorus (10/02/2024 12:41 AM EST) Phosphorus 4.1 2.5 - 4.5 mg/dL 10/02/2024 1:21 AM EST [facility] Blood VENOUS BLOOD SPECIMEN / Unknown Venipuncture / Unknown 10/02/2024 12:41 AM EST 10/02/2024 12:45 AM EST Hayley Torres MD CHEMISTRY ORDERABLES Performing Organization Address City/[facility]/ZIP Co de Phone Number [facility] [place] [address] * Magnesium (10/02/2024 12:41 AM EST) Magnesium 0.85 0.69 - 1.07 mMol/L 10/02/2024 1:21 AM EST [facility] Blood VENOUS BLOOD SPECIMEN / Unknown Venipuncture / Unknown 10/02/2024 12:41 AM EST 10/02/2024 12:45 AM EST Hayley Torres MD CHEMISTRY ORDERABLES Performing Organization Address City/[facility]/ZIP Co de Phone Number [facility] [place] [place] [address] * (ABNORMAL) Basic Metabolic Panel (10/02/2024 12:41 AM EST) Glucose 113 65 - 199 mg/dL 10/02/2024 1:21 AM EST [facility] Comment:Glucose Concentratio n >=200 mg/dL plus symptoms is consistent with Diabetes Mellitus. Blood Urea Nitrogen 11 10 - 20 mg/dL 10/02/2024 1:21 AM EST [facility] Creatinine 0.49(L) 0.80 - 1.50 mg/dL 10/02/2024 1:21 AM EST [facility] Sodium 138 135 - 145 mMol/L 10/02/2024 1:21 AM [facility] Potassium 3.9 3.5 - 5.0 mMol/L 10/02/2024 1:21 AM [facility] Chloride 105 98 - 107 mMol/L 10/02/2024 1:21 AM [facility] Carbon Dioxide 23 22 - 31 mMol/L 10/02/2024 1:21 AM [facility] Anion Gap 10 5 - 15 mMol/L 10/02/2024 1:21 AM [facility] Calcium 8.2(L) 8.5 - 10.5 mg/dL 10/02/2024 1:21 AM [facility] Est Glomerular Filtration Rate - Male 125 mL/min/1. 73 m?? 10/02/2024 1:21 AM [facility] Comment: This patient's estimated GFR [...] CHEMISTRY ORDERABLES [facility] [place] [address] * (ABNORMAL) CBC (with Diff) (10/02/2024 12:41 AM EST) White Blood Cell 10.93(H) 4.00 - 9.50 x10(3)/mc L 10/02/2024 1:04 AM [facility] Red Blood Cell 3.30(L) 4.58 - 5.54 x10(6)/mc L 10/02/2024 1:04 AM [facility] Hemoglobin 9.6(L) 13.7 - 16.5 g/dL 10/02/2024 1:04 AM [facility] Hematocrit 28.6(L) 40.5 - 48.5 % 10/02/2024 1:04 AM [facility] Mean Cell Volume 86.7 82.9 - 93.1 fL 10/02/2024 1:04 AM [facility] Mean Cell Hemoglobin 29.1 27.5 - 32.1 pg 10/02/2024 1:04 AM [facility] Mean Cell Hemoglobin Concentration 33.6 32.0 - 35.7 g/dL 10/02/2024 1:04 AM [facility] Platelet 546(H) 145 - 357 x10(3)/mc L 10/02/2024 1:04 AM [facility] Mean Platelet Volume 9.0 7.6 - 12.9 fL 10/02/2024 1:04 AM [facility] RDW Standard Deviation 42.7 36.0 - 45.0 fL 10/02/2024 1:04 AM [facility] RDW coefficient of variation 13.3 11.4 - 13.8 % 10/02/2024 1:04 AM [facility] NRBC% auto 0.0 % 10/02/2024 1:04 AM [facility] NRBC Absolute <0.01 <0.01 x10(3)/mc L 10/02/2024 1:04 AM [facility] Neutrophil % 58.4 % 10/02/2024 1:04 AM [facility] Neutrophil Absolute (ANC) - Automated 6.38(H) 1.70 - 6.10 x10(3)/mc L 10/02/2024 1:04 AM [facility] Lymph % 23.9 % 10/02/2024 1:04 AM [facility] Lymph Absolute 2.61 0.90 - 3.20 x10(3)/mc L 10/02/2024 1:04 AM [facility] Monocyte % 5.6 % 10/02/2024 1:04 AM [facility] Monocyte Absolute 0.61 0.30 - 0.90 x10(3)/mc L 10/02/2024 1:04 AM [facility] Eos % 1.6 % 10/02/2024 1:04 AM [facility] Eos Absolute 0.18 0.00 - 0.40 x10(3)/mc L 10/02/2024 1:04 AM [facility] Basophil % 0.8 % 10/02/2024 1:04 AM [facility] Baso Absolute 0.09 0.00 - 0.10 x10(3)/mc L 10/02/2024 1:04 AM [facility] Immature Gran % 9.7 % 1:04 AM [facility] Immature Gran Absolute 1.06(H) 0.00 - 0.04 x10(3)/mc L 10/02/2024 1:04 AM [facility] Blood VENOUS BLOOD SPECIMEN / Unknown Venipuncture / Unknown 10/02/2024 12:41 AM EST 10/02/2024 12:45 AM EST Hayley Torres MD HEMATOLOGY ORDERABLE S [facility] [place] [address] * POC, GLUCOSE (10/02/2024 12:40 AM EST) [facility] Signature Glucometer, POC 116 65 - 199 mg/dL 10/02/2024 12:41 AM [facility] Comment:Supplemental ranges: <140 mg/dL before meals <180 mg/dL all other times of the day. Blood CAPILLARY BLOOD / Unknown 10/02/2024 12:40 AM EST 10/02/2024 12:41 AM EST Hayley Torres MD POINT OF CARE TEST O GILDA [facility] [place] [address] * POC, GLUCOSE (10/01/2024 8:11 PM EST) Glucometer, POC 123 65 - 199 mg/dL 10/01/2024 8:11 PM EST [facility] Comment:Supplemental ranges: <140 mg/dL before meals <180 mg/dL all other times of the day. Blood CAPILLARY BLOOD / Unknown 10/01/2024 8:11 PM EST 10/01/2024 8:11 PM EST Hayley Torres MD POINT OF CARE TEST O GILDA Performing Organization Address City/[facility]/ZIP Co de Phone Number [facility] [place] [address] * POC, GLUCOSE (10/01/2024 6:00 PM EST) Glucometer, POC 112 65 - 199 mg/dL 10/01/2024 6:00 PM EST [facility] Comment:Supplemental ranges: <140 mg/dL before meals <180 mg/dL all other times of the day. Blood CAPILLARY BLOOD / Unknown 10/01/2024 6:00 PM EST 10/01/2024 6:00 PM EST Hayley Torres MD POINT OF CARE TEST O GILDA [facility] [place] [address] * POC, GLUCOSE (10/01/2024 3:53 PM EST) Glucometer, POC 97 65 - 199 mg/dL 10/01/2024 3:53 PM EST [facility] Comment:Supplemental ranges: <140 mg/dL before meals <180 mg/dL all other times of the day. Blood CAPILLARY BLOOD / Unknown 10/01/2024 3:53 PM EST 10/01/2024 3:53 PM EST Hayley Torres MD POINT OF CARE TEST O GILDA [facility] [place] [address] * POC, GLUCOSE (10/01/2024 2:25 PM EST) Glucometer, POC 117 65 - 199 mg/dL 10/01/2024 2:25 PM EST [facility] Comment:Supplemental ranges: <140 mg/dL before meals <180 mg/dL all other times of the day. Blood CAPILLARY BLOOD / Unknown 10/01/2024 2:25 PM EST 10/01/2024 2:25 PM EST Hayley Torres MD POINT OF CARE TEST O GILDA Performing Organization Address [facility] Co de Phone Number [facility] [place] [address] * POC, GLUCOSE (10/01/2024 11:43 AM EST) Glucometer, POC 174 65 - 199 mg/dL 10/01/2024 11:43 AM EST [facility] Comment:Supplemental ranges: <140 mg/dL before meals <180 mg/dL all other times of the day. Blood CAPILLARY BLOOD / Unknown 10/01/2024 11:43 AM EST 10/01/2024 11:43 AM EST Hayley Torres MD POINT OF CARE TEST O GILDA [facility] [place] [address] * POC, GLUCOSE (10/01/2024 9:43 AM EST) Glucometer, POC 191 65 - 199 mg/dL 10/01/2024 9:43 AM EST [facility] Comment:Supplemental ranges: <140 mg/dL before meals <180 mg/dL all other times of the day. Blood CAPILLARY BLOOD / Unknown 10/01/2024 9:43 AM EST 10/01/2024 9:43 AM EST Hayley Torres MD POINT OF CARE TEST O GILDA Performing Organization Address City/[facility]/ZIP Co de Phone Number [facility] [place] [address] * POC, GLUCOSE (10/01/2024 7:48 AM EST) Glucometer, POC 151 65 - 199 mg/dL 10/01/2024 7:48 AM EST [facility] Comment:Supplemental ranges: <140 mg/dL before meals <180 mg/dL all other times of the day. Blood CAPILLARY BLOOD / Unknown 10/01/2024 7:48 AM EST 10/01/2024 7:48 AM EST Hayley Torres MD POINT OF CARE TEST O GILDA [facility] [place] [address] * POC, GLUCOSE (10/01/2024 4:25 AM EST) Glucometer, POC 133 65 - 199 mg/dL 10/01/2024 4:26 AM EST [facility] Comment:Supplemental ranges: <140 mg/dL before meals <180 mg/dL all other times of the day. Blood CAPILLARY BLOOD / Unknown 10/01/2024 4:25 AM EST 10/01/2024 4:26 AM EST Hayley Torres MD POINT OF CARE TEST O RDERABLES [facility] [place] [address] * Phosphorus (10/01/2024 2:02 AM EST) [facility] Phosphorus 3.9 2.5 - 4.5 mg/dL 10/01/2024 7:16 AM EST [facility] Blood VENOUS BLOOD SPECIMEN / Unknown Venipuncture / Unknown 10/01/2024 2:02 AM EST 10/01/2024 2:10 AM EST Hayley Torres MD CHEMISTRY ORDERABLES Performing Organization Address City/[facility]/ZIP Co de Phone Number [facility] [place] [address] * (ABNORMAL) Scan, Peripheral Blood (10/01/2024 2:02 AM EST) [facility] RBC Morphology Abnormal 10/01/2024 2:55 AM EST [...] Performing Organization Address City/[facility]/ZIP Co de Phone Number [facility] [place] [address] * Magnesium (10/01/2024 2:02 AM EST) [facility] Magnesium 0.79 0.69 - 1.07 mMol/L 10/01/2024 2:41 AM EST [facility] Blood VENOUS BLOOD SPECIMEN / Unknown Venipuncture / Unknown 10/01/2024 2:02 AM EST 10/01/2024 2:10 AM EST Hayley Torres MD CHEMISTRY ORDERABLES [facility] [place] [address] * (ABNORMAL) Basic Metabolic Panel (10/01/2024 2:02 AM EST) Glucose 122 65 - 199 mg/dL 10/01/2024 2:41 AM EST [facility] Comment:Glucose Concentratio n >=200 mg/dL plus symptoms is consistent with Diabetes Mellitus. Blood Urea Nitrogen 10 10 - 20 mg/dL 10/01/2024 2:41 AM [facility] Creatinine 0.47(L) 0.80 - 1.50 mg/dL 10/01/2024 2:41 AM [facility] Sodium 138 135 - 145 mMol/L 10/01/2024 2:41 AM [facility] Potassium 3.9 3.5 - 5.0 mMol/L 10/01/2024 2:41 AM EST [facility] Chloride 105 98 - 107 mMol/L 10/01/2024 2:41 AM [facility] Carbon Dioxide 24 22 - 31 mMol/L 10/01/2024 2:41 AM [facility] Anion Gap 9 5 - 15 mMol/L 10/01/2024 2:41 AM [facility] Calcium 8.1(L) 8.5 - 10.5 mg/dL 10/01/2024 2:41 AM [facility] Est Glomerular Filtration Rate - Male 127 mL/min/1. 73 m?? 10/01/2024 2:41 AM [facility] Comment: This patient's estimated GFR [...] CHEMISTRY ORDERABLES [facility] [place] [address] * (ABNORMAL) CBC (with Diff) (10/01/2024 2:02 AM EST) White Blood Cell 10.15(H) 4.00 - 9.50 x10(3)/mc L 10/01/2024 2:55 AM [facility] Red Blood Cell 3.14(L) 4.58 - 5.54 x10(6)/mc L 10/01/2024 2:55 AM EST [facility] Hemoglobin 9.1(L) 13.7 - 16.5 g/dL 10/01/2024 2:55 AM [facility] Hematocrit 26.9(L) 40.5 - 48.5 % 10/01/2024 2:55 AM [facility] Mean Cell Volume 85.7 82.9 - 93.1 fL 10/01/2024 2:55 AM [facility] Mean Cell Hemoglobin 29.0 27.5 - 32.1 pg 10/01/2024 2:55 AM [facility] Mean Cell Hemoglobin Concentration 33.8 32.0 - 35.7 g/dL 10/01/2024 2:55 AM [facility] Platelet 444(H) 145 - 357 x10(3)/mc L 10/01/2024 2:55 AM [facility] Mean Platelet Volume 8.9 7.6 - 12.9 fL 10/01/2024 2:55 AM [facility] RDW Standard Deviation 41.2 36.0 - 45.0 fL 10/01/2024 2:55 AM [facility] RDW coefficient of variation 13.2 11.4 - 13.8 % 10/01/2024 2:55 AM [facility] NRBC% auto 0.0 % 10/01/2024 2:55 AM [facility] NRBC Absolute <0.01 <0.01 x10(3)/mc L 10/01/2024 2:55 AM [facility] Neutrophil % 59.5 % 10/01/2024 2:55 AM [facility] Comment:This is an appended report. These results have been appended to a previously preliminary verified report. Neutrophil Absolute (ANC) - Automated 6.05 1.70 - 6.10 x10(3)/mc L 10/01/2024 2:55 AM [facility] Comment:This is an appended report. These results have been appended to a previously preliminary verified report. Lymph % 22.3 % 10/01/2024 2:55 AM [facility] Comment:This is an appended report. These results have been appended to a previously preliminary verified report. Lymph Absolute 2.26 0.90 - 3.20 x10(3)/mc L 10/01/2024 2:55 AM [facility] Comment:This is an appended report. These results have been appended to a previously preliminary verified report. Monocyte % 7.4 % 10/01/2024 2:55 AM [facility] Comment:This is an appended report. These results have been appended to a previously preliminary verified report. Monocyte Absolute 0.75 0.30 - 0.90 x10(3)/mc L 10/01/2024 2:55 AM [facility] Comment:This is an appended report. These results have been appended to a previously preliminary verified report. Eos % 1.8 % 10/01/2024 2:55 AM EST [facility] Comment:This is an appended report. These results have been appended to a previously preliminary verified report. Eos Absolute 0.18 0.00 - 0.40 x10(3)/mc L 10/01/2024 2:55 AM EST [facility] Comment:This is an appended report. These results have been appended to a previously preliminary verified report. Basophil % 0.6 % 10/01/2024 2:55 AM EST [facility] Comment:This is an appended report. These results have been appended to a previously preliminary verified report. Baso Absolute 0.06 0.00 - 0.10 x10(3)/mc L 10/01/2024 2:55 AM [facility] Comment:This is an appended report. These results have been appended to a previously preliminary verified report. Immature Gran % 8.4 % 2:55 AM EST [facility] Comment:This is an appended report. These results have been appended to a previously preliminary verified report. Immature Gran Absolute 0.85(H) 0.00 - 0.04 x10(3)/mc L 10/01/2024 2:55 AM [facility] Comment:This is an appended report. These results have been appended to a previously preliminary verified report. Blood VENOUS BLOOD SPECIMEN / Unknown Venipuncture / Unknown 10/01/2024 2:02 AM EST 10/01/2024 2:10 AM EST Hayley Torres MD HEMATOLOGY ORDERABLE S [facility] [place] [address] * POC, GLUCOSE (10/01/2024 12:32 AM EST) [facility] Signature Glucometer, POC 179 65 - 199 mg/dL 10/01/2024 12:32 AM [facility] Comment:Supplemental ranges: <140 mg/dL before meals <180 mg/dL all other times of the day. Blood CAPILLARY BLOOD / Unknown 10/01/2024 12:32 AM EST 10/01/2024 12:32 AM EST Hayley Torres MD POINT OF CARE TEST O GILDA Performing Organization Address [facility] Co de Phone Number [facility] [place] [address] * POC, GLUCOSE (09/30/2024 7:37 PM EST) Glucometer, POC 140 65 - 199 mg/dL 09/30/2024 7:38 PM EST [facility] Comment:Supplemental ranges: <140 mg/dL before meals <180 mg/dL all other times of the day. Blood CAPILLARY BLOOD / Unknown 09/30/2024 7:37 PM EST 09/30/2024 7:38 PM EST Hayley Torres MD POINT OF CARE TEST O GILDA Performing Organization Address [facility] Co de Phone Number [facility] [place] [address] * POC, GLUCOSE (09/30/2024 4:29 PM EST) Glucometer, POC 126 65 - 199 mg/dL 09/30/2024 4:30 PM EST [facility] Comment:Supplemental ranges: <140 mg/dL before meals <180 mg/dL all other times of the day. Blood CAPILLARY BLOOD / Unknown 09/30/2024 4:29 PM EST 09/30/2024 4:30 PM EST Hayley Torres MD POINT OF CARE TEST O GILDA Performing Organization Address City/[facility] Co de Phone Number [facility] [place] [address] * POC, GLUCOSE (09/30/2024 12:16 PM EST) Glucometer, POC 107 65 - 199 mg/dL 09/30/2024 12:16 PM EST [facility] Comment:Supplemental ranges: <140 mg/dL before meals <180 mg/dL all other times of the day. Blood CAPILLARY BLOOD / Unknown 09/30/2024 12:16 PM EST 09/30/2024 12:16 PM EST Hayley Torres MD POINT OF CARE TEST O RDERABLES Performing Organization Address City/[facility] Co de Phone Number [facility] [place] [address] * POC, GLUCOSE (09/30/2024 7:58 AM EST) Glucometer, POC 92 65 - 199 mg/dL 09/30/2024 7:58 AM EST [facility] Comment:Supplemental ranges: <140 mg/dL before meals <180 mg/dL all other times of the day. Blood CAPILLARY BLOOD / Unknown 09/30/2024 7:58 AM EST 09/30/2024 7:58 AM EST Hayley Torres MD POINT OF CARE TEST O GILDA Performing Organization Address City/[facility] Co de Phone Number [facility] [place] [address] * Potassium (09/30/2024 6:27 AM EST) Potassium 3.9 3.5 - 5.0 mMol/L 09/30/2024 7:10 AM EST [facility] Blood VENOUS BLOOD SPECIMEN / Unknown Venipuncture / Unknown 09/30/2024 6:27 AM EST 09/30/2024 6:35 AM EST Hayley Torres MD CHEMISTRY ORDERABLES Performing Organization Address City/[facility] Co de Phone Number [facility] [place] [address] * Vancomycin, trough (09/30/2024 6:27 AM EST) Vancomycin, Trough 14.1 10.0 - 20.0 mg/L 09/30/2024 7:10 AM EST [facility] Comment: Varies according to infection source. Blood VENOUS BLOOD SPECIMEN / Unknown Venipuncture / Unknown 09/30/2024 6:27 AM EST 09/30/2024 6:35 AM EST Hayley Torres MD CHEMISTRY ORDERABLES Performing Organization Address City/[facility]/ZIP Co de Phone Number [facility] [place] [address] * POC, GLUCOSE (09/30/2024 3:51 AM EST) Glucometer, POC 134 65 - 199 mg/dL 09/30/2024 3:51 AM EST [facility] Comment:Supplemental ranges: <140 mg/dL before meals <180 mg/dL all other times of the day. Blood CAPILLARY BLOOD / Unknown 09/30/2024 3:51 AM EST 09/30/2024 3:51 AM EST Hayley Torres MD POINT OF CARE TEST O RDERABLES Performing Organization Address City/[facility] Co de Phone Number [facility] [place] [address] * Magnesium (09/29/2024 11:52 PM EST) Magnesium 0.85 0.69 - 1.07 mMol/L 09/30/2024 12:25 AM EST [facility] Blood VENOUS BLOOD SPECIMEN / Unknown Venipuncture / Unknown 09/29/2024 11:52 PM EST 09/29/2024 11:58 PM EST Hayley Torres MD CHEMISTRY ORDERABLES Performing Organization Address City/[facility] Co de Phone Number [facility] [place] [address] * (ABNORMAL) Basic Metabolic Panel (09/29/2024 11:52 PM EST) Glucose 133 65 - 199 mg/dL 09/30/2024 12:51 AM [facility] Comment:Glucose Concentratio n >=200 mg/dL plus symptoms is consistent with Diabetes Mellitus. Blood Urea Nitrogen 9(L) 10 - 20 mg/dL 09/30/2024 12:51 AM [facility] Creatinine 0.48(L) 0.80 - 1.50 mg/dL 09/30/2024 12:51 AM [facility] Sodium 138 135 - 145 mMol/L 09/30/2024 12:51 AM [facility] Potassium 3.4(L) 3.5 - 5.0 mMol/L 09/30/2024 12:51 AM [facility] Chloride 103 98 - 107 mMol/L 09/30/2024 12:51 AM [facility] Carbon Dioxide 24 22 - 31 mMol/L 09/30/2024 12:51 AM [facility] Anion Gap 11 5 - 15 mMol/L 09/30/2024 12:51 AM [facility] Calcium 8.1(L) 8.5 - 10.5 mg/dL 09/30/2024 12:51 AM [facility] Est Glomerular Filtration Rate - Male 126 mL/min/1. 73 m?? 09/30/2024 12:51 AM [facility] Comment: This patient's estimated GFR [...] CHEMISTRY ORDERABLES [facility] [place] [address] * (ABNORMAL) CBC (with Diff) (09/29/2024 11:52 PM EST) White Blood Cell 9.54(H) 4.00 - 9.50 x10(3)/mc L 09/30/2024 12:02 AM [facility] Red Blood Cell 3.04(L) 4.58 - 5.54 x10(6)/mc L 09/30/2024 12:02 AM [facility] Hemoglobin 8.7(L) 13.7 - 16.5 g/dL 09/30/2024 12:02 AM [facility] Hematocrit 25.8(L) 40.5 - 48.5 % 09/30/2024 12:02 AM [facility] Mean Cell Volume 84.9 82.9 - 93.1 fL 09/30/2024 12:02 AM [facility] Mean Cell Hemoglobin 28.6 27.5 - 32.1 pg 09/30/2024 12:02 AM [facility] Mean Cell Hemoglobin Concentration 33.7 32.0 - 35.7 g/dL 09/30/2024 12:02 AM [facility] Platelet 411(H) 145 - 357 x10(3)/mc L 09/30/2024 12:02 AM [facility] Mean Platelet Volume 8.8 7.6 - 12.9 fL 09/30/2024 12:02 AM [facility] RDW Standard Deviation 41.4 36.0 - 45.0 fL 09/30/2024 12:02 AM [facility] RDW coefficient of variation 13.4 11.4 - 13.8 % 09/30/2024 12:02 AM [facility] NRBC% auto 0.0 % 09/30/2024 12:02 AM [facility] NRBC Absolute <0.01 <0.01 x10(3)/mc L 09/30/2024 12:02 AM [facility] Neutrophil % 64.5 % 09/30/2024 12:02 AM [facility] Neutrophil Absolute (ANC) - Automated 6.16(H) 1.70 - 6.10 x10(3)/mc L 09/30/2024 12:02 AM [facility] Lymph % 23.1 % 09/30/2024 12:02 AM [facility] Lymph Absolute 2.20 0.90 - 3.20 x10(3)/mc L 09/30/2024 12:02 AM [facility] Monocyte % 8.0 % 09/30/2024 12:02 AM [facility] Monocyte Absolute 0.76 0.30 - 0.90 x10(3)/mc L 09/30/2024 12:02 AM [facility] Eos % 1.5 % 09/30/2024 12:02 AM [facility] Eos Absolute 0.14 0.00 - 0.40 x10(3)/mc L 09/30/2024 12:02 AM [facility] Basophil % 0.3 % 09/30/2024 12:02 AM [facility] Baso Absolute <0.04 0.00 - 0.10 x10(3)/mc L 09/30/2024 12:02 AM [facility] Immature Gran % 2.6 % 12:02 AM [facility] Immature Gran Absolute 0.25(H) 0.00 - 0.04 x10(3)/mc L 09/30/2024 12:02 AM [facility] Blood VENOUS BLOOD SPECIMEN / Unknown Venipuncture / Unknown 09/29/2024 11:52 PM EST 09/29/2024 11:58 PM EST Hayley Torres MD HEMATOLOGY ORDERABLE S [facility] [place] [address] * POC, GLUCOSE (09/29/2024 11:51 PM EST) Glucometer, POC 134 65 - 199 mg/dL 09/29/2024 11:51 PM EST [facility] Comment:Supplemental ranges: <140 mg/dL before meals <180 mg/dL all other times of the day. Blood CAPILLARY BLOOD / Unknown 09/29/2024 11:51 PM EST 09/29/2024 11:51 PM EST Hayley Torres MD POINT OF CARE TEST O RDERABLES Performing Organization Address City/[facility]/ZIP Co de Phone Number [facility] [place] [address] * Blood culture (09/29/2024 9:24 PM EST) Blood Culture No growth at 120 hours 10/04/2024 11:01 PM EST [facility] Blood VENOUS BLOOD SPECIMEN / Unknown Venipuncture / Unknown 09/29/2024 9:24 PM EST 09/29/2024 9:34 PM EST Hayley Torres MD MICROBIOLOGY - BLOOD ORDERABLES Performing Organization Address City/[facility]/ZIP Co de Phone Number [facility] [place] [address] * Blood culture (09/29/2024 9:24 PM EST) Blood Culture No growth at 120 hours 10/04/2024 11:01 PM EST [facility] Blood VENOUS BLOOD SPECIMEN / Unknown Venipuncture / Unknown 09/29/2024 9:24 PM EST 09/29/2024 9:34 PM EST Marko Dickson MD MICROBIOLOGY - BLOOD ORDERABLES Performing Organization Address City/[facility]/ZIP Co de Phone Number [facility] [place] [address] * (ABNORMAL) POC, GLUCOSE (09/29/2024 7:35 PM EST) Glucometer, POC 202(H) 65 - 199 mg/dL 09/29/2024 7:36 PM EST [facility] Comment:Supplemental ranges: <140 mg/dL before meals <180 mg/dL all other times of the day. Blood CAPILLARY BLOOD / Unknown 09/29/2024 7:35 PM EST 09/29/2024 7:36 PM EST aHyley Torres MD POINT OF CARE TEST O GILDA Performing Organization Address City/[facility]/ZIP Co de Phone Number [facility] [place] [address] * POC, GLUCOSE (09/29/2024 6:48 PM EST) Glucometer, POC 161 65 - 199 mg/dL 09/29/2024 6:48 PM EST [facility] Comment:Supplemental ranges: <140 mg/dL before meals <180 mg/dL all other times of the day. Blood CAPILLARY BLOOD / Unknown 09/29/2024 6:48 PM EST 09/29/2024 6:49 PM EST Hayley Torres MD POINT OF CARE TEST O GILDA Performing Organization Address City/[facility]/ZIP Co de Phone Number [facility] [place] [address] * POC, GLUCOSE (09/29/2024 4:06 PM EST) Glucometer, POC 122 65 - 199 mg/dL 09/29/2024 4:06 PM EST [facility] Comment:Supplemental ranges: <140 mg/dL before meals <180 mg/dL all other times of the day. Blood CAPILLARY BLOOD / Unknown 09/29/2024 4:06 PM EST 09/29/2024 4:06 PM EST Hayley Torres MD POINT OF CARE TEST O RDERAHERNANDEZ Performing Organization Address [facility] Co de Phone Number [facility] [place] [address] * POC, GLUCOSE (09/29/2024 11:49 AM EST) Glucometer, POC 135 65 - 199 mg/dL 09/29/2024 11:49 AM EST [facility] Comment:Supplemental ranges: <140 mg/dL before meals <180 mg/dL all other times of the day. Blood CAPILLARY BLOOD / Unknown 09/29/2024 11:49 AM EST 09/29/2024 11:50 AM EST Hayley Torres MD POINT OF CARE TEST O GILDA Performing Organization Address [facility] de Phone Number [facility] [place] [address] * (ABNORMAL) POC, GLUCOSE (09/29/2024 7:53 AM EST) Glucometer, POC 202(H) 65 - 199 mg/dL 09/29/2024 7:53 AM EST [facility] Comment:Supplemental ranges: <140 mg/dL before meals <180 mg/dL all other times of the day. Blood CAPILLARY BLOOD / Unknown 09/29/2024 7:53 AM EST 09/29/2024 7:53 AM EST Hayley Torres MD POINT OF CARE TEST O GILDA Performing Organization Address [facility] Co de Phone Number [facility] [place] [address] * POC, GLUCOSE (09/29/2024 3:45 AM EST) Glucometer, POC 184 65 - 199 mg/dL 09/29/2024 3:46 AM EST [facility] Comment:Supplemental ranges: <140 mg/dL before meals <180 mg/dL all other times of the day. Blood CAPILLARY BLOOD / Unknown 09/29/2024 3:45 AM EST 09/29/2024 3:46 AM EST Hayley Torres MD POINT OF CARE TEST O RDERABLES Performing Organization Address City/[facility]/ZIP Co de Phone Number [facility] [place] [address] * (ABNORMAL) Hemoglobin A1c (09/28/2024 11:51 PM [...] cell turnover may not be sales representative groceries of glycemic control. Reference Interval: 4.3 - 5.6% 5.7 - 6.4%: Consistent with prediabetes >=6.5%: Consistent with diagnosis of diabetes mellitus Estimated Average Glucose 232 mg/dL 09/29/2024 9:54 AM EST [facility] Blood VENOUS BLOOD SPECIMEN / Unknown Venipuncture / Unknown 09/28/2024 11:51 PM EST 09/28/2024 11:56 PM EST Hayley Torres MD CHEMISTRY ORDERABLES Performing Organization Address City/[facility]/ZIP Co de Phone Number [facility] [place] [place] [address] * Magnesium (09/28/2024 11:51 PM EST) Magnesium 0.72 0.69 - 1.07 mMol/L 09/29/2024 12:27 AM EST [facility] Blood VENOUS BLOOD SPECIMEN / Unknown Venipuncture / Unknown 09/28/2024 11:51 PM EST 09/28/2024 11:57 PM EST Hayley Torres MD CHEMISTRY ORDERABLES [facility] [place] [address] * (ABNORMAL) Basic Metabolic Panel (09/28/2024 11:51 PM EST) Glucose 204(H) 65 - 199 mg/dL 09/29/2024 12:40 AM [facility] Comment:Glucose Concentratio n >=200 mg/dL plus symptoms is consistent with Diabetes Mellitus. Blood Urea Nitrogen 6(L) 10 - 20 mg/dL 09/29/2024 12:40 AM [facility] Creatinine 0.52(L) 0.80 - 1.50 mg/dL 09/29/2024 12:40 AM [facility] Sodium 137 135 - 145 mMol/L 09/29/2024 12:40 AM [facility] Potassium 3.2(L) 3.5 - 5.0 mMol/L 09/29/2024 12:40 AM [facility] Chloride 105 98 - 107 mMol/L 09/29/2024 12:40 AM [facility] Carbon Dioxide 21(L) 22 - 31 mMol/L 09/29/2024 12:40 AM [facility] Anion Gap 11 5 - 15 mMol/L 09/29/2024 12:40 AM [facility] Calcium 6.7(LLL) 8.5 - 10.5 mg/dL 09/29/2024 12:40 AM [facility] Est Glomerular Filtration Rate - Male 123 mL/min/1. 73 m?? 09/29/2024 12:40 AM [facility] Comment: This patient's estimated GFR [...] CHEMISTRY ORDERABLES [facility] [place] [address] * (ABNORMAL) CBC (with Diff) (09/28/2024 11:51 PM EST) White Blood Cell 12.76(H) 4.00 - 9.50 x10(3)/mc L 09/29/2024 12:00 AM [facility] Red Blood Cell 2.90(L) 4.58 - 5.54 x10(6)/mc L 09/29/2024 12:00 AM [facility] Hemoglobin 8.5(L) 13.7 - 16.5 g/dL 09/29/2024 12:00 AM [facility] Hematocrit 24.7(L) 40.5 - 48.5 % 09/29/2024 12:00 AM [facility] Mean Cell Volume 85.2 82.9 - 93.1 fL 09/29/2024 12:00 AM [facility] Mean Cell Hemoglobin 29.3 27.5 - 32.1 pg 09/29/2024 12:00 AM [facility] Mean Cell Hemoglobin Concentration 34.4 32.0 - 35.7 g/dL 09/29/2024 12:00 AM [facility] Platelet 331 145 - 357 x10(3)/mc L 09/29/2024 12:00 AM [facility] Mean Platelet Volume 9.2 7.6 - 12.9 fL 09/29/2024 12:00 AM [facility] RDW Standard Deviation 40.4 36.0 - 45.0 fL 09/29/2024 12:00 AM [facility] RDW coefficient of variation 13.1 11.4 - 13.8 % 09/29/2024 12:00 AM [facility] NRBC% auto 0.0 % 09/29/2024 12:00 AM [facility] NRBC Absolute <0.01 <0.01 x10(3)/mc L 09/29/2024 12:00 AM [facility] Neutrophil % 86.7 % 09/29/2024 12:00 AM [facility] Neutrophil Absolute (ANC) - Automated 11.06(H) 1.70 - 6.10 x10(3)/mc L 09/29/2024 12:00 AM [facility] Lymph % 7.7 % 09/29/2024 12:00 AM [facility] Lymph Absolute 0.98 0.90 - 3.20 x10(3)/mc L 09/29/2024 12:00 AM [facility] Monocyte % 4.0 % 09/29/2024 12:00 AM [facility] Monocyte Absolute 0.51 0.30 - 0.90 x10(3)/mc L 09/29/2024 12:00 AM [facility] Eos % 0.0 % 09/29/2024 12:00 AM [facility] Eos Absolute <0.04 0.00 - 0.40 x10(3)/mc L 09/29/2024 12:00 AM [facility] Basophil % 0.2 % 09/29/2024 12:00 AM [facility] Baso Absolute <0.04 0.00 - 0.10 x10(3)/mc L 09/29/2024 12:00 AM [facility] Immature Gran % 1.4 % 12:00 AM EST [facility] Immature Gran Absolute 0.18(H) 0.00 - 0.04 x10(3)/mc L 09/29/2024 12:00 AM EST [facility] Blood VENOUS BLOOD SPECIMEN / Unknown Venipuncture / Unknown 09/28/2024 11:51 PM EST 09/28/2024 11:56 PM EST Hayley Torres MD HEMATOLOGY ORDERABLE S [facility] [place] [address] * (ABNORMAL) POC, GLUCOSE (09/28/2024 11:45 PM EST) Glucometer, POC 238(H) 65 - 199 mg/dL 09/28/2024 11:45 PM EST [facility] Comment:Supplemental ranges: <140 mg/dL before meals <180 mg/dL all other times of the day. Blood CAPILLARY BLOOD / Unknown 09/28/2024 11:45 PM EST 09/28/2024 11:45 PM EST Hayley Torres MD POINT OF CARE TEST O GILDA Performing Organization Address [facility]/ZIP Co de Phone Number [facility] [place] [address] * (ABNORMAL) POC, GLUCOSE (09/28/2024 10:00 PM EST) Glucometer, POC 287(H) 65 - 199 mg/dL 09/28/2024 10:00 PM EST [facility] Comment:Supplemental ranges: <140 mg/dL before meals <180 mg/dL all other times of the day. Blood CAPILLARY BLOOD / Unknown 09/28/2024 10:00 PM EST 09/28/2024 10:00 PM EST Hayley Torres MD POINT OF CARE TEST O GILDA [facility] [place] [address] * (ABNORMAL) POC, GLUCOSE (09/28/2024 7:51 PM EST) Glucometer, POC 243(H) 65 - 199 mg/dL 09/28/2024 7:52 PM EST [facility] Comment:Supplemental ranges: <140 mg/dL before meals <180 mg/dL all other times of the day. Blood CAPILLARY BLOOD / Unknown 09/28/2024 7:51 PM EST 09/28/2024 7:52 PM EST Hayley Torres MD POINT OF CARE TEST Stephanie VO Performing Organization Address [facility]/ZIP Co de Phone Number [facility] [place] [place] [address] * Blood culture (09/28/2024 5:49 PM EST) Blood Culture No growth at 120 hours 10/03/2024 7:01 PM EST [facility] Blood VENOUS BLOOD SPECIMEN / Unknown Venipuncture / Unknown 09/28/2024 5:49 PM EST 09/28/2024 5:53 PM EST Marko Dickson MD MICROBIOLOGY - BLOOD ORDERABLES Performing Organization Address [facility]/ZIP Co de Phone Number [facility] [place] [address] * (ABNORMAL) POC, GLUCOSE (09/28/2024 4:42 PM EST) Glucometer, POC 203(H) 65 - 199 mg/dL 09/28/2024 4:42 PM EST [facility] Comment:Supplemental ranges: <140 mg/dL before meals <180 mg/dL all other times of the day. Blood CAPILLARY BLOOD / Unknown 09/28/2024 4:42 PM EST 09/28/2024 4:42 PM EST Hayley Torres MD POINT OF CARE TEST O RDERABLES [facility] [place] [address] * (ABNORMAL) Blood Gas, Arterial POC (09/28/2024 3:16 PM EST) pH, Arterial 7.42 7.35 - 7.45 09/28/2024 3:17 PM EST [facility] PCO2, Arterial 39 35 - 45 mmHg 09/28/2024 3:17 PM [facility] PO2, Arterial 103 85 - 104 mmHg 09/28/2024 3:17 PM [facility] Bicarbonate, Arterial 24.8 20.0 - 26.0 mmol/L 09/28/2024 3:17 PM [facility] Base Excess, Arterial 0.2 -3.0 - 3.0 mmol/L 09/28/2024 3:17 PM [facility] Hemoglobin, Arterial 10.9(L) 13.7 - 16.5 g/dL 09/28/2024 3:17 PM [facility] Oxyhemoglobin, Arterial 97.1(H) 94.0 - 97.0 % 09/28/2024 3:17 PM [facility] Carboxyhemoglobin , Arterial 0.1 % 09/28/2024 3:17 PM [facility] Comment: Nonsmokers: 0.5-1.5% COHB ?? Smokers: Variable ??but usually less than 10% ?? Toxic: 20-30% COHB ?? Lethal: Greater than 60% COHB Methemoglobin, Arterial 0.2 <=1.5 % 09/28/2024 3:17 PM EST [facility] Sodium, Arterial 131(L) 135 - 145 mmol/L 09/28/2024 3:17 PM [facility] Potassium, Arterial 3.8 3.5 - 5.0 mmol/L 09/28/2024 3:17 PM [facility] Chloride, Arterial 99 98 - 107 mmol/L 09/28/2024 3:17 PM [facility] Lactate, Arterial 1.1 0.5 - [...] O RDERABLES [facility] [place] [address] * Surgical Pathology (09/28/2024 2:10 PM EST) Case Report Surgical Pathology Report ? Case: [id number] ? Authorizing Provider: ??Hayley Torres MD ? Collected: ? 09/28/2024 1410 ? Ordering Location: ? Main Operating Room [facility] ?? Received: ?09/28/2024 1644 ? [facility] ? [facility] ? Pathologist: ? Aziza Packer MD ? Specimens: ?? A) - Leg, Left, Left femoral proximal graft ? B) - Leg, Left, Left distal BK pop graft ? 10/02/2024 8:17 AM [facility] Final Diagnosis A. Graft, left leg, femoral proximal, excision: - Gross surgical pathology examination. B. Graft, left leg, distal BK pop, excision: - Gross surgical pathology examination. 10/02/2024 8:17 AM [facility] Clinical Information A. Leg, Left, Left femoral proximal graft Left femoral proximal graft B. Leg, Left, Left distal BK pop graft Left distal BK pop graft 10/02/2024 8:17 AM [facility] Gross Description A. Leg, Left, [...] AM EST [facility] Shells Inspector STRUCTURE OF LEFT LOWER LIMB / Unknown 09/28/2024 2:10 PM EST 09/28/2024 4:44 PM EST Comment:Left femoral proxima l graft Biomedical device (physical object) STRUCTURE OF LEFT LOWER LIMB / Unknown 09/28/2024 2:17 PM EST 09/28/2024 4:44 PM EST Comment:Left distal BK pop g raft Hayley Torres MD PATHOLOGY/CYTOLOGY O RDERABLES [facility] [place] [address] * Potassium (09/28/2024 10:45 AM EST) Potassium 4.6 3.5 - 5.0 mMol/L 09/28/2024 12:26 PM EST [facility] Blood VENOUS BLOOD SPECIMEN / Unknown Venipuncture / Unknown 09/28/2024 10:45 AM EST 09/28/2024 10:53 AM EST Marko Dickson MD CHEMISTRY ORDERABLES [facility] [place] [address] * POC, GLUCOSE (09/28/2024 7:57 AM EST) Glucometer, POC 192 65 - 199 mg/dL 09/28/2024 7:57 AM EST [facility] Comment:Supplemental ranges: <140 mg/dL before meals <180 mg/dL all other times of the day. Blood CAPILLARY BLOOD / Unknown 09/28/2024 7:57 AM EST 09/28/2024 7:57 AM EST Marko Dickson MD POINT OF CARE TEST O RDERABLES [facility] [place] [id number] * ELEN, legs, multiple levels (09/28/2024 7:44 AM EST) [facility] VB Text Report Department: Vascular Surgery Lab Patient: [id number] (GEOVANNA DIXON) CPT: 26503 Referring Physician: HERMILA SNIDER ?? Phone: Indications: [...] EST Narrative 09/28/2024 9:15 AM EST 1 [place] [address] ? Echocardiogram Report Name: GEOVANNA DIXON JR ?Study Date: 09/28/2024 06:56 AMBP: 132/75 mmHg ? Patient Location: ^IC08^A : 1975 ? Height: 179 cm ? Account: [id number] Age: 49 yrs ? Weight: 108 kg Gender: Male ?BSA: 2.3 m2 Ordering Physician: Marko Dickson MD Referring Physician: PATRIC GILES Performed By: Faiza Cole Reason For Study: Vascular graft infection, initial encounter; MRSA bacteremia Interpreting Fellow: Jame Lares. Exam Location: [facility]. Interpretation Summary -Limited study performed for [...] 05/29/2024, no significant changes. Procedure Limited - 52776. Doppler - 81233. Color Doppler - 95614. Suboptimal quality. This study is limited because [...] Note David Lomeli MD - 09/28/2024 1 [place] [address] Echocardiogram Report Name: GEOVANNA DIXON JR Study Date: 406:56 AMBP: 132/75 mmHg Patient Location:[facility]^A : 1975 Height: 179 cm Account: [id number] Age: 49 yrs Weight: 108 kg Gender: Male BSA: 2.3 m2 Ordering Physician: Marko Dickson MD Referring Physician: PATRIC GILES Performed By: Faiza Cole Reason For Study: Vascular graft infection, initial encounter; MRSAbacteremia Interpreting Fellow: Jame Lares. Exam Location: [facility]. Interpretation Summary -Limited study performed for [...] 05/29/2024, no significant changes. Procedure Limited - 16165. Doppler - 96682. Color Doppler - 15354. Suboptimalquality. This study is limited because of [...] - 20.0 mg/L 09/28/2024 7:21 AM EST [facility] Comment: Varies according to infection source. Blood VENOUS BLOOD SPECIMEN / Unknown Venipuncture / Unknown 09/28/2024 6:44 AM EST 09/28/2024 6:49 AM EST Marko Dickson MD CHEMISTRY ORDERABLES Performing Organization Address [facility] Co de Phone Number [facility] [place] [address] * (ABNORMAL) Potassium (09/28/2024 4:55 AM EST) Potassium 2.9(LLL) 3.5 - 5.0 mMol/L 09/28/2024 5:31 AM EST [facility] Blood VENOUS BLOOD SPECIMEN / Unknown Venipuncture / Unknown 09/28/2024 4:55 AM EST 09/28/2024 5:01 AM EST Marko Dickson MD CHEMISTRY ORDERABLES Performing Organization Address [facility] Co de Phone Number [facility] [place] [address] * (ABNORMAL) POC, GLUCOSE (09/28/2024 3:54 AM EST) Glucometer, POC 229(H) 65 - 199 mg/dL 09/28/2024 3:54 AM EST [facility] Comment:Supplemental ranges: <140 mg/dL before meals <180 mg/dL all other times of the day. Blood CAPILLARY BLOOD / Unknown 09/28/2024 3:54 AM EST 09/28/2024 3:54 AM EST Marko Dickson MD POINT OF CARE TEST O RDERABLES Performing Organization Address [facility] Co de Phone Number [facility] [place] [address] * Magnesium (09/27/2024 11:58 PM EST) Magnesium 0.77 0.69 - 1.07 mMol/L 09/28/2024 12:38 AM [facility] Blood VENOUS BLOOD SPECIMEN / Unknown Venipuncture / Unknown 09/27/2024 11:58 PM EST 09/28/2024 12:10 AM EST Hayley Torres MD CHEMISTRY ORDERABLES [facility] [place] [address] * (ABNORMAL) Basic Metabolic Panel (09/27/2024 11:58 PM EST) Glucose 246(H) 65 - 199 mg/dL 09/28/2024 12:38 AM [facility] Comment:Glucose Concentratio n >=200 mg/dL plus symptoms is consistent with Diabetes Mellitus. Blood Urea Nitrogen 5(L) 10 - 20 mg/dL 09/28/2024 12:38 AM [facility] Creatinine 0.48(L) 0.80 - 1.50 mg/dL 09/28/2024 12:38 AM [facility] Sodium 131(L) 135 - 145 mMol/L 09/28/2024 12:38 AM [facility] Potassium 3.2(L) 3.5 - 5.0 mMol/L 09/28/2024 12:38 AM [facility] Chloride 95(L) 98 - 107 mMol/L 09/28/2024 12:38 AM [facility] Carbon Dioxide 23 22 - 31 mMol/L 09/28/2024 12:38 AM [facility] Anion Gap 13 5 - 15 mMol/L 09/28/2024 12:38 AM [facility] Calcium 8.1(L) 8.5 - 10.5 mg/dL 09/28/2024 12:38 AM [facility] Est Glomerular Filtration Rate - Male 126 mL/min/1. 73 m?? 09/28/2024 12:38 AM [facility] Comment: This patient's estimated GFR [...] CHEMISTRY ORDERABLES [facility] [place] [address] * (ABNORMAL) CBC (with Diff) (09/27/2024 11:58 PM EST) White Blood Cell 17.15(H) 4.00 - 9.50 x10(3)/mc L 09/28/2024 12:14 AM [facility] Red Blood Cell 3.64(L) 4.58 - 5.54 x10(6)/mc L 09/28/2024 12:14 AM [facility] Hemoglobin 10.4(L) 13.7 - 16.5 g/dL 09/28/2024 12:14 AM [facility] Hematocrit 30.5(L) 40.5 - 48.5 % 09/28/2024 12:14 AM [facility] Mean Cell Volume 83.8 82.9 - 93.1 fL 09/28/2024 12:14 AM [facility] Mean Cell Hemoglobin 28.6 27.5 - 32.1 pg 09/28/2024 12:14 AM [facility] Mean Cell Hemoglobin Concentration 34.1 32.0 - 35.7 g/dL 09/28/2024 12:14 AM [facility] Platelet 316 145 - 357 x10(3)/mc L 09/28/2024 12:14 AM [facility] Mean Platelet Volume 9.4 7.6 - 12.9 fL 09/28/2024 12:14 AM [facility] RDW Standard Deviation 39.4 36.0 - 45.0 fL 09/28/2024 12:14 AM [facility] RDW coefficient of variation 12.8 11.4 - 13.8 % 09/28/2024 12:14 AM [facility] NRBC% auto 0.0 % 09/28/2024 12:14 AM [facility] NRBC Absolute <0.01 <0.01 x10(3)/mc L 09/28/2024 12:14 AM [facility] Neutrophil % 81.2 % 09/28/2024 12:14 AM [facility] Neutrophil Absolute (ANC) - Automated 13.93(H) 1.70 - 6.10 x10(3)/mc L 09/28/2024 12:14 AM [facility] Lymph % 10.5 % 09/28/2024 12:14 AM [facility] Lymph Absolute 1.80 0.90 - 3.20 x10(3)/mc L 09/28/2024 12:14 AM [facility] Monocyte % 5.7 % 09/28/2024 12:14 AM [facility] Monocyte Absolute 0.98(H) 0.30 - 0.90 x10(3)/mc L 09/28/2024 12:14 AM [facility] Eos % 0.7 % 09/28/2024 12:14 AM [facility] Eos Absolute 0.12 0.00 - 0.40 x10(3)/mc L 09/28/2024 12:14 AM [facility] Basophil % 0.5 % 09/28/2024 12:14 AM [facility] Baso Absolute 0.08 0.00 - 0.10 x10(3)/mc L 09/28/2024 12:14 AM EST [facility] Immature Gran % 1.4 % 12:14 AM EST [facility] Immature Gran Absolute 0.24(H) 0.00 - 0.04 x10(3)/mc L 09/28/2024 12:14 AM [facility] Blood VENOUS BLOOD SPECIMEN / Unknown Venipuncture / Unknown 09/27/2024 11:58 PM EST 09/28/2024 12:10 AM EST [facility] Torres MD HEMATOLOGY ORDERABLE S [facility] [place] [address] * (ABNORMAL) POC, GLUCOSE (09/27/2024 11:46 PM EST) Glucometer, POC 205(H) 65 - 199 mg/dL 09/27/2024 11:46 PM EST [facility] Comment:Supplemental ranges: <140 mg/dL before meals <180 mg/dL all other times of the day. Blood CAPILLARY BLOOD / Unknown 09/27/2024 11:46 PM EST 09/27/2024 11:46 PM EST Marko Dickson MD POINT OF CARE TEST O RDERABLES [facility] [place] [place] [address] * (ABNORMAL) Blood culture (09/27/2024 9:33 PM EST) Blood Culture Methicillin Resistant Staphylococcus aureus(Critical) 10/02/2024 8:04 AM EST [facility] Comment:Susceptibilities pre viously reported. Gram Stain Aerobic Bottle: Gram positive cocci in clusters(Critical ) 10/02/2024 8:04 AM EST [facility] Blood VENOUS BLOOD SPECIMEN / Unknown Venipuncture / Unknown 09/27/2024 9:33 PM EST 09/27/2024 9:38 PM EST Marko Dickson MD MICROBIOLOGY - BLOOD ORDERABLES Performing Organization Address [facility]/ZIP Co de Phone Number [facility] [place] [place] [address] * POC, GLUCOSE (09/27/2024 7:51 PM EST) Glucometer, POC 142 65 - 199 mg/dL 09/27/2024 7:51 PM EST [facility] Comment:Supplemental ranges: <140 mg/dL before meals <180 mg/dL all other times of the day. Blood CAPILLARY BLOOD / Unknown 09/27/2024 7:51 PM EST 09/27/2024 7:51 PM EST Marko Dickson MD POINT OF CARE TEST O RDERABLES Performing Organization Address [facility] Co de Phone Number [facility] [place] [place] [address] * (ABNORMAL) Hemogram (09/27/2024 5:55 PM EST) White Blood Cell 19.38(H) 4.00 - 9.50 x10(3)/mc L 09/27/2024 6:16 PM [facility] Red Blood Cell 3.76(L) 4.58 - 5.54 x10(6)/mc L 09/27/2024 6:16 PM [facility] Hemoglobin 11.0(L) 13.7 - 16.5 g/dL 09/27/2024 6:16 PM [facility] Hematocrit 31.6(L) 40.5 - 48.5 % 09/27/2024 6:16 PM [facility] Mean Cell Volume 84.0 82.9 - 93.1 fL 09/27/2024 6:16 PM [facility] Mean Cell Hemoglobin 29.3 27.5 - 32.1 pg 09/27/2024 6:16 PM [facility] Mean Cell Hemoglobin Concentration 34.8 32.0 - 35.7 g/dL 09/27/2024 6:16 PM EST [facility] Platelet 322 145 - 357 x10(3)/mc L 09/27/2024 6:16 PM [facility] Mean Platelet Volume 9.4 7.6 - 12.9 fL 09/27/2024 6:16 PM [facility] RDW Standard Deviation 39.4 36.0 - 45.0 fL 09/27/2024 6:16 PM [facility] RDW coefficient of variation 13.0 11.4 - 13.8 % 09/27/2024 6:16 PM [facility] NRBC% auto 0.0 % 09/27/2024 6:16 PM [facility] NRBC Absolute <0.01 <0.01 x10(3)/mc L 09/27/2024 6:16 PM [facility] Blood VENOUS BLOOD SPECIMEN / Unknown Venipuncture / Unknown 09/27/2024 5:55 PM EST 09/27/2024 6:05 PM EST Marko Dickson MD HEMATOLOGY ORDERABLE S [facility] [place] [place] [address] * POC, GLUCOSE (09/27/2024 5:48 PM EST) [facility] Signature Glucometer, POC 171 65 - 199 mg/dL 09/27/2024 5:48 PM EST [facility] Comment:Supplemental ranges: <140 mg/dL before meals <180 mg/dL all other times of the day. Blood CAPILLARY BLOOD / Unknown 09/27/2024 5:48 PM EST 09/27/2024 5:48 PM EST Marko Dickson MD POINT OF CARE TEST O RDERABLES [facility] [place] [place] [address] * Anaerobic Culture (09/27/2024 4:54 PM EST) Anaerobic Culture No anaerobic organisms isolated 10/01/2024 3:54 PM EST [facility] Tissue STRUCTURE OF LEFT THIGH / Unknown 09/27/2024 4:54 PM EST Comment:Infected explanted l eft leg bypass graft Hayley Torres MD MICROBIOLOGY - GENER AL ORDERABLES [facility] [place] [address] * (ABNORMAL) Tissue Culture, Aerobic Only (09/27/2024 [...] AL ORDERABLES Performing Organization Address [facility] Co de Phone Number [facility] [place] [place] [address] * Fungus culture (09/27/2024 4:54 PM EST) Fungus Culture No fungus isolated 10/31/2024 7:55 AM EST [facility] Tissue STRUCTURE OF LEFT THIGH / Unknown 09/27/2024 4:54 PM EST 09/27/2024 5:23 PM EST Comment:Infected explanted l eft leg bypass graft Hayley Torres MD MICROBIOLOGY - GENER AL ORDERABLES Performing Organization Address [facility] Phone Number [facility] [place] [place] [address] * POC, GLUCOSE (09/27/2024 3:23 PM EST) Glucometer, POC 178 65 - 199 mg/dL 09/27/2024 3:23 PM EST [facility] Comment:Supplemental ranges: <140 mg/dL before meals <180 mg/dL all other times of the day. Blood CAPILLARY BLOOD / Unknown 09/27/2024 3:23 PM EST 09/27/2024 3:23 PM EST Marko Dickson MD POINT OF CARE TEST O RDERABLES Performing Organization Address [facility] Co de Phone Number [facility] [place] [place] [address] * POC, GLUCOSE (09/27/2024 11:29 AM EST) Glucometer, POC 181 65 - 199 mg/dL 09/27/2024 11:29 AM EST [facility] Comment:Supplemental ranges: <140 mg/dL before meals <180 mg/dL all other times of the day. Blood CAPILLARY BLOOD / Unknown 09/27/2024 11:29 AM EST 09/27/2024 11:30 AM EST Marko Dickson MD POINT OF CARE TEST O RDERABLES [facility] [place] [address] * CT Lower Extremity w Contrast Left (09/27/2024 9:16 AM EST) WORKSTATION ID [id number] [facility] Anatomical Region Laterality Modality Hip, Leg, Knee, [...] questions please contact the health health care coach that requested your imaging first. ? Narrative [...] wedged between the vastus medialis and adductor Sterling muscle. This tracks into the popliteal fossa [...] is wedgedbetween the vastus medialis and adductor Sterling muscle. This tracks into thepopliteal fossa and [...] have questions please contactthe health health care coach that requested your imaging first. Rose Wright POLYETHYLENE BAG MACHINE OPERATOR IMG CT ORDERABL ES * POC, GLUCOSE (09/27/2024 7:51 AM EST) [facility] Glucometer, POC 194 65 - 199 mg/dL 09/27/2024 7:51 AM EST [facility] Comment:Supplemental ranges: <140 mg/dL before meals <180 mg/dL all other times of the day. Blood CAPILLARY BLOOD / Unknown 09/27/2024 7:51 AM EST 09/27/2024 7:51 AM EST Marko Dickson MD POINT OF CARE TEST O RDERABLES [facility] [place] [place] [address] * (ABNORMAL) MRSA PCR Screen (09/27/2024 7:51 AM EST) [facility] MRSA PCR Detected(A ) 09/27/2024 11:56 AM EST [facility] Swab BOTH ANTERIOR NARES / Unknown Non Blood Collection / Unknown 09/27/2024 7:51 AM EST 09/27/2024 8:05 AM EST Narrative [facility] - 09/27/2024 11:56 AM EST This test was performed using the Xpert MRSA NxG test kit and is run on the [employer] GeneXpert Dx System. This test is cleared by the U.S. Food and Drug Administration for clinical use and its performance characteristics have been verified by the [facility] at [facility]. Marko Dickson MD MOLECULAR ORDERABLES [facility] [place] [address] * Potassium (09/27/2024 7:51 AM EST) Potassium 3.5 3.5 - 5.0 mMol/L 09/27/2024 9:09 AM EST [facility] Blood VENOUS BLOOD SPECIMEN / Unknown Venipuncture / Unknown 09/27/2024 7:51 AM EST 09/27/2024 8:05 AM EST Marko Dickson MD CHEMISTRY ORDERABLES Performing Organization Address City/[facility]/ZIP Co de Phone Number [facility] [place] [place] [address] * (ABNORMAL) Potassium (09/27/2024 5:05 AM EST) Potassium 3.4(L) 3.5 - 5.0 mMol/L 09/27/2024 5:32 AM EST [facility] Blood VENOUS BLOOD SPECIMEN / Unknown Venipuncture / Unknown 09/27/2024 5:05 AM EST 09/27/2024 5:09 AM EST Marko Dickson MD CHEMISTRY ORDERABLES Performing Organization Address City/[facility]/ZIP Co de Phone Number [facility] [place] [place] [address] * POC, GLUCOSE (09/27/2024 3:52 AM EST) Glucometer, POC 199 65 - 199 mg/dL 09/27/2024 3:52 AM EST [facility] Comment:Supplemental ranges: <140 mg/dL before meals <180 mg/dL all other times of the day. Blood CAPILLARY BLOOD / Unknown 09/27/2024 3:52 AM EST 09/27/2024 3:52 AM EST Marko Dickson MD POINT OF CARE TEST O RDERABLES Performing Organization Address [facility] Co de Phone Number [facility] [place] [place] [address] * (ABNORMAL) POC, GLUCOSE (09/27/2024 1:59 AM EST) Glucometer, POC 219(H) 65 - 199 mg/dL 09/27/2024 2:00 AM EST [facility] Comment:Supplemental ranges: <140 mg/dL before meals <180 mg/dL all other times of the day. Blood CAPILLARY BLOOD / Unknown 09/27/2024 1:59 AM EST 09/27/2024 2:00 AM EST Marko Dickson MD POINT OF CARE TEST O RDERAHERNANDEZ Performing Organization Address City/[facility]/ZIP Co de Phone Number [facility] [place] [address] * (ABNORMAL) Magnesium (09/27/2024 12:01 AM EST) Magnesium 0.68(L) 0.69 - 1.07 mMol/L 09/27/2024 12:35 AM EST [facility] Blood VENOUS BLOOD SPECIMEN / Unknown Venipuncture / Unknown 09/27/2024 12:01 AM EST 09/27/2024 12:05 AM EST Hayley Torres MD CHEMISTRY ORDERABLES [facility] [place] [place] [address] * (ABNORMAL) Basic Metabolic Panel (09/27/2024 12:01 AM EST) Glucose 261(H) 65 - 199 mg/dL 09/27/2024 12:35 AM EST [facility] Comment:Glucose Concentratio n >=200 mg/dL plus symptoms is consistent with Diabetes Mellitus. Blood Urea Nitrogen 7(L) 10 - 20 mg/dL 09/27/2024 12:35 AM [facility] Creatinine 0.45(L) 0.80 - 1.50 mg/dL 09/27/2024 12:35 AM [facility] Sodium 128(L) 135 - 145 mMol/L 09/27/2024 12:35 AM [facility] Potassium 3.3(L) 3.5 - 5.0 mMol/L 09/27/2024 12:35 AM [facility] Chloride 92(L) 98 - 107 mMol/L 09/27/2024 12:35 AM [facility] Carbon Dioxide 23 22 - 31 mMol/L 09/27/2024 12:35 AM [facility] Anion Gap 13 5 - 15 mMol/L 09/27/2024 12:35 AM [facility] Calcium 8.5 8.5 - 10.5 mg/dL 09/27/2024 12:35 AM [facility] Est Glomerular Filtration Rate - Male 128 mL/min/1. 73 m?? 09/27/2024 12:35 AM [facility] Comment: This patient's estimated GFR [...] CHEMISTRY ORDERABLES [facility] [place] [address] * (ABNORMAL) CBC (with Diff) (09/27/2024 12:01 AM EST) White Blood Cell 23.20(H) 4.00 - 9.50 x10(3)/mc L 09/27/2024 12:10 AM [facility] Red Blood Cell 4.07(L) 4.58 - 5.54 x10(6)/mc L 09/27/2024 12:10 AM [facility] Hemoglobin 11.7(L) 13.7 - 16.5 g/dL 09/27/2024 12:10 AM [facility] Hematocrit 33.6(L) 40.5 - 48.5 % 09/27/2024 12:10 AM [facility] Mean Cell Volume 82.6(L) 82.9 - 93.1 fL 09/27/2024 12:10 AM [facility] Mean Cell Hemoglobin 28.7 27.5 - 32.1 pg 09/27/2024 12:10 AM [facility] Mean Cell Hemoglobin Concentration 34.8 32.0 - 35.7 g/dL 09/27/2024 12:10 AM [facility] Platelet 296 145 - 357 x10(3)/mc L 09/27/2024 12:10 AM [facility] Mean Platelet Volume 9.5 7.6 - 12.9 fL 09/27/2024 12:10 AM [facility] RDW Standard Deviation 37.9 36.0 - 45.0 fL 09/27/2024 12:10 AM [facility] RDW coefficient of variation 12.6 11.4 - 13.8 % 09/27/2024 12:10 AM [facility] NRBC% auto 0.0 % 09/27/2024 12:10 AM [facility] NRBC Absolute <0.01 <0.01 x10(3)/mc L 09/27/2024 12:10 AM [facility] Neutrophil % 83.7 % 09/27/2024 12:10 AM [facility] Neutrophil Absolute (ANC) - Automated 19.43(H) 1.70 - 6.10 x10(3)/mc L 09/27/2024 12:10 AM [facility] Lymph % 6.7 % 09/27/2024 12:10 AM [facility] Lymph Absolute 1.56 0.90 - 3.20 x10(3)/mc L 09/27/2024 12:10 AM [facility] Monocyte % 7.8 % 09/27/2024 12:10 AM [facility] Monocyte Absolute 1.80(H) 0.30 - 0.90 x10(3)/mc L 09/27/2024 12:10 AM [facility] Eos % 0.2 % 09/27/2024 12:10 AM [facility] Eos Absolute 0.04 0.00 - 0.40 x10(3)/mc L 09/27/2024 12:10 AM [facility] Basophil % 0.5 % 09/27/2024 12:10 AM [facility] Baso Absolute 0.12(H) 0.00 - 0.10 x10(3)/mc L 09/27/2024 12:10 AM [facility] Immature Gran % 1.1 % 12:10 AM [facility] Immature Gran Absolute 0.25(H) 0.00 - 0.04 x10(3)/mc L 09/27/2024 12:10 AM EST [facility] Blood VENOUS BLOOD SPECIMEN / Unknown Venipuncture / Unknown 09/27/2024 12:01 AM EST 09/27/2024 12:05 AM EST Hayley Torres MD HEMATOLOGY ORDERABLE S [facility] [place] [address] * (ABNORMAL) POC, GLUCOSE (09/26/2024 11:59 PM EST) Glucometer, POC 251(H) 65 - 199 mg/dL 09/26/2024 11:59 PM EST [facility] Comment:Supplemental ranges: <140 mg/dL before meals <180 mg/dL all other times of the day. Blood CAPILLARY BLOOD / Unknown 09/26/2024 11:59 PM EST 09/26/2024 11:59 PM EST Marko Dickson MD POINT OF CARE TEST O RDERAHERNANDEZ Performing Organization Address City/[facility]/ZIP Co de Phone Number [facility] [place] [place] [address] * (ABNORMAL) POC, GLUCOSE (09/26/2024 7:34 PM EST) Glucometer, POC 204(H) 65 - 199 mg/dL 09/26/2024 7:34 PM EST [facility] Comment:Supplemental ranges: <140 mg/dL before meals <180 mg/dL all other times of the day. Blood CAPILLARY BLOOD / Unknown 09/26/2024 7:34 PM EST 09/26/2024 7:35 PM EST Marko Dickson MD POINT OF CARE TEST O RDERAHERNANDEZ [facility] [place] [address] * (ABNORMAL) Blood culture (09/26/2024 6:45 PM EST) Blood Culture Methicillin Resistant Staphylococcus aureus(Critical) 10/01/2024 6:58 AM EST [facility] Comment: isolated. Susceptibilities previously reported. Gram Stain Aerobic Bottle: Gram positive cocci in clusters(Critical ) 10/01/2024 6:58 AM EST [facility] Blood VENOUS BLOOD SPECIMEN / Unknown Venipuncture / Unknown 09/26/2024 6:45 PM EST 09/26/2024 6:48 PM EST Marko Dickson MD MICROBIOLOGY - BLOOD ORDERABLES [facility] [place] [address] * (ABNORMAL) Sonicated Tissue/Implant Culture (09/26/2024 5:16 [...] Dickson MD MICROBIOLOGY - GENER AL ORDERABLES [facility] [place] [address] * Anaerobic Culture (09/26/2024 5:02 PM EST) Anaerobic Culture No anaerobic organisms isolated 09/30/2024 3:51 PM EST [facility] Abscess STRUCTURE OF LEFT KNEE REGION / Unknown Non Blood Collection / Unknown 09/26/2024 5:02 PM EST Comment:Left Below Knee popl iteal fluid Please perform Gram stain if not included in order Hayley Torres MD MICROBIOLOGY - GENER AL ORDERABLES [facility] [place] [address] * (ABNORMAL) Abscess/Wound Aspirate Culture, Aerobic Only [...] AL ORDERABLES [facility] [place] [address] * Fungus culture (09/26/2024 5:02 PM EST) Fungus Culture No fungus isolated 10/24/2024 7:54 AM EST [facility] Abscess STRUCTURE OF LEFT KNEE REGION / Unknown Non Blood Collection / Unknown 09/26/2024 5:02 PM EST 09/26/2024 5:08 PM EST Comment:Left Below Knee popl iteal fluid Please perform Gram stain if not included in order Hayley Torres MD MICROBIOLOGY - GENER AL ORDERABLES Performing Organization Address [facility] Co de Phone Number [facility] [place] [place] [address] * Anaerobic Culture (09/26/2024 4:50 PM EST) Anaerobic Culture No anaerobic organisms isolated 09/30/2024 3:51 PM EST [facility] Abscess LEFT INGUINAL REGION STRUCTURE / Unknown Non Blood Collection / Unknown 09/26/2024 4:50 PM EST Comment:Left Groin Fluid Hayley Torres MD MICROBIOLOGY - GENER AL ORDERABLES Performing Organization Address City/[facility] Co de Phone Number [facility] [place] [address] * (ABNORMAL) Abscess/Wound Aspirate Culture, Aerobic Only (09/26/2024 4:50 PM EST) Abscess/Wound Aspirate Culture Many Methicillin Resistant Staphylococcus aureus(A) VITEK 2 METHOD 09/30/2024 1:36 PM EST [facility] Gram Stain Many neutrophils(A) 09/30/2024 1:36 PM EST [facility] Gram Stain Many Gram positive cocci(A) 09/30/2024 1:36 PM EST [facility] Abscess LEFT INGUINAL REGION [...] AL ORDERABLES Performing Organization Address [facility] Co de Phone Number [facility] [place] [address] * Fungus culture (09/26/2024 4:50 PM EST) Pathologist [facility] Fungus Culture No fungus isolated 10/24/2024 7:54 AM [facility] Abscess LEFT INGUINAL REGION STRUCTURE / Unknown Non Blood Collection / Unknown 09/26/2024 4:50 PM EST 09/26/2024 4:56 PM EST Comment:Left Groin Fluid Hayley Torres MD MICROBIOLOGY - GENER AL ORDERABLES Performing Organization Address [facility] Co de Phone Number [facility] [place] [address] * (ABNORMAL) Blood Gas, Arterial POC (09/26/2024 4:43 PM EST) pH, Arterial 7.38 7.35 - 7.45 09/27/2024 7:41 AM [facility] PCO2, Arterial 41 35 - 45 mmHg 09/27/2024 7:41 AM [facility] PO2, Arterial 96 85 - 104 mmHg 09/27/2024 7:41 AM [facility] Bicarbonate, Arterial 23.8 20.0 - 26.0 mmol/L 09/27/2024 7:41 AM [facility] Base Excess, Arterial -1.4 -3.0 - 3.0 mmol/L 09/27/2024 7:41 AM [facility] Hemoglobin, Arterial 12.6(L) 13.7 - 16.5 g/dL 09/27/2024 7:41 AM [facility] Oxyhemoglobin, Arterial 96.2 94.0 - 97.0 % 09/27/2024 7:41 AM [facility] Carboxyhemoglobin , Arterial 0.3 % 09/27/2024 7:41 AM [facility] Comment: Nonsmokers: 0.5-1.5% COHB ?? Smokers: Variable ??but usually less than 10% ?? Toxic: 20-30% COHB ?? Lethal: Greater than 60% COHB Methemoglobin, Arterial 0.3 <=1.5 % 09/27/2024 7:41 AM [facility] Sodium, Arterial 128(L) 135 - 145 mmol/L 09/27/2024 7:41 AM [facility] Potassium, Arterial 3.0(LLL) 3.5 - 5.0 mmol/L 09/27/2024 7:41 AM [facility] Chloride, Arterial 95(L) 98 - 107 mmol/L 09/27/2024 7:41 AM [facility] Lactate, Arterial 1.7 0.5 - 2.2 mmol/L 09/27/2024 7:41 AM [facility] IONIZED CALCIUM, ARTERIAL 1.09(L) 1.15 - 1.33 mmol/L 09/27/2024 7:41 AM [facility] Glucose, Arterial 205(H) 65 - 199 mg/dL 09/27/2024 7:41 AM [facility] Comment:Glucose Concentratio n >=200 mg/dL plus symptoms is consistent with Diabetes Mellitus. Blood ARTERIAL BLOOD / Unknown 09/26/2024 4:43 PM EST 09/27/2024 7:41 AM EST Marko Dickson MD POINT OF CARE TEST O GILDA Performing Organization Address City/[facility]/ZIP Co de Phone Number [facility] [place] [address] * (ABNORMAL) POC, GLUCOSE (09/26/2024 4:29 PM EST) Glucometer, POC 213(H) 65 - 199 mg/dL 09/26/2024 4:30 PM EST [facility] Comment:Supplemental ranges: <140 mg/dL before meals <180 mg/dL all other times of the day. Blood CAPILLARY BLOOD / Unknown 09/26/2024 4:29 PM EST 09/26/2024 4:30 PM EST Marko Dickson MD POINT OF CARE TEST O GILDA Performing Organization Address [facility]/ZIP Co de Phone Number [facility] [place] [address] * (ABNORMAL) Blood Gas, Venous POC (09/26/2024 3:28 PM EST) pH, Venous 7.43(H) 7.32 - 7.42 09/26/2024 3:30 PM [facility] PCO2, Venous 41 38 - 58 mmHg 09/26/2024 3:30 PM [facility] PO2, Venous 18 16 - 65 mmHg 09/26/2024 3:30 PM [facility] Bicarbonate, Venous 26.6 22 - 31 mmol/L 09/26/2024 3:30 PM [facility] Base Excess, Venous 2.3 1.9 - 4.5 mmol/L 09/26/2024 3:30 PM [facility] Hemoglobin, Venous 12.4(L) 13.7 - 16.5 g/dL 09/26/2024 3:30 PM [facility] Oxyhemoglobin, Venous 26.8 % 09/26/2024 3:30 PM [facility] Carboxyhemoglobin , Venous 1.0 % 09/26/2024 3:30 PM EST [facility] Comment: Nonsmokers: 0.5-1.5% COHB [...] 98 - 107 mmol/L 09/26/2024 3:30 PM [facility] Glucose, Venous 259(H) 65 - 199 mg/dL 09/26/2024 3:30 PM [facility] Comment:Glucose Concentratio n >=200 mg/dL plus symptoms is consistent with Diabetes Mellitus. Lactate, Venous 2.2 0.5 - 2.2 mmol/L 09/26/2024 3:30 PM EST [facility] Ionized Calcium, Venous 1.09(L) 1.15 - 1.33 mmol/L 09/26/2024 3:30 PM [facility] Blood VENOUS BLOOD SPECIMEN / Unknown 09/26/2024 3:28 PM EST 09/26/2024 3:30 PM EST Marko Dickson MD POINT OF CARE TEST O RDERABLES [facility] [place] [address] * (ABNORMAL) Scan, Peripheral Blood (09/26/2024 2:39 PM EST) RBC Morphology Abnormal 09/26/2024 3:21 PM EST [facility] Platelet Estimate Normal Normal 09/26/2024 3:21 PM [facility] Microcyte 1-5 /HPF 09/26/2024 3:21 PM EST [facility] Platelet Clumps Present(A) (none) 3:21 PM EST [facility] WBC MORPHOLOGY See Comment(A) (none) 09/26/2024 3:21 PM EST [facility] Comment:Dohle BodiesToxic Gr anulation Blood VENOUS BLOOD SPECIMEN / Unknown Venipuncture / Unknown 09/26/2024 2:39 PM EST 09/26/2024 2:50 PM EST Marko Dickson MD HEMATOLOGY ORDERABLE S Performing Organization Address City/[facility]/ZIP Co de Phone Number [facility] [place] [address] * ABORH RECHECK (PATIENT HISTORY FOUND) (09/26/2024 2:39 PM EST) [facility] - [place] [facility] Recheck Progress Complete 09/26/2024 5:01 PM EST [facility] Blood VENOUS BLOOD SPECIMEN / Unknown Venipuncture / Unknown 09/26/2024 2:39 PM EST 09/26/2024 2:56 PM EST Marko Dickson MD BLOOD BANK LAB ORDER RANDELL Performing Organization Address City/[facility]/ZIP Co de Phone Number [facility] [place] [address] * (ABNORMAL) Hepatic Function Panel (09/26/2024 2:39 PM EST) [facility] Albumin 3.1(L) 3.2 - 5.2 g/dL 09/26/2024 [...] Total 0.4 <=1.3 mg/dL 09/26/2024 4:23 PM [facility] Bilirubin, Direct 0.2 0.0 - 0.3 mg/dL 09/26/2024 4:23 PM [facility] Protein, Total 7.0 6.1 - 8.0 g/dL 09/26/2024 4:23 PM [facility] Blood VENOUS BLOOD SPECIMEN / Unknown Venipuncture / Unknown 09/26/2024 2:39 PM EST 09/26/2024 2:50 PM EST Marko Dickson MD CHEMISTRY ORDERABLES [facility] [place] [address] * (ABNORMAL) Basic Metabolic Panel (09/26/2024 2:39 PM EST) Glucose 254(H) 65 - 199 mg/dL 09/26/2024 4:32 PM [facility] Comment:Glucose Concentratio n >=200 mg/dL plus symptoms is consistent with Diabetes Mellitus. Blood Urea Nitrogen 9(L) 10 - 20 mg/dL 09/26/2024 4:32 PM [facility] Creatinine 0.55(L) 0.80 - 1.50 mg/dL 09/26/2024 4:32 PM [facility] Sodium 127(L) 135 - 145 mMol/L 09/26/2024 4:32 PM [facility] Potassium 3.4(L) 3.5 - 5.0 mMol/L 09/26/2024 4:32 PM [facility] Chloride 89(L) 98 - 107 mMol/L 09/26/2024 4:32 PM [facility] Carbon Dioxide 25 22 - 31 mMol/L 09/26/2024 4:32 PM [facility] Anion Gap 13 5 - 15 mMol/L 09/26/2024 4:32 PM [facility] Calcium 8.9 8.5 - 10.5 mg/dL 09/26/2024 4:32 PM EST [facility] Est Glomerular Filtration Rate - Male 121 mL/min/1. 73 m?? 09/26/2024 4:32 PM [facility] Comment: This patient's estimated GFR [...] CHEMISTRY ORDERABLES [facility] [place] [address] * (ABNORMAL) CBC (with Diff) (09/26/2024 2:39 PM EST) White Blood Cell 22.76(H) 4.00 - 9.50 x10(3)/mc L 09/26/2024 3:21 PM [facility] Red Blood Cell 4.20(L) 4.58 - 5.54 x10(6)/mc L 09/26/2024 3:21 PM [facility] Hemoglobin 12.3(L) 13.7 - 16.5 g/dL 09/26/2024 3:21 PM [facility] Hematocrit 35.0(L) 40.5 - 48.5 % 09/26/2024 3:21 PM [facility] Mean Cell Volume 83.3 82.9 - 93.1 fL 09/26/2024 3:21 PM [facility] Mean Cell Hemoglobin 29.3 27.5 - 32.1 pg 09/26/2024 3:21 PM [facility] Mean Cell Hemoglobin Concentration 35.1 32.0 - 35.7 g/dL 09/26/2024 3:21 PM [facility] Platelet 277 145 - 357 x10(3)/mc L 09/26/2024 3:21 PM [facility] Mean Platelet Volume 9.6 7.6 - 12.9 fL 09/26/2024 3:21 PM [facility] RDW Standard Deviation 37.9 36.0 - 45.0 fL 09/26/2024 3:21 PM [facility] RDW coefficient of variation 12.6 11.4 - 13.8 % 09/26/2024 3:21 PM [facility] NRBC% auto 0.0 % 09/26/2024 3:21 PM [facility] NRBC Absolute <0.01 <0.01 x10(3)/mc L 09/26/2024 3:21 PM [facility] Neutrophil % 84.0 % 09/26/2024 3:21 PM [facility] Comment:This is an appended report. These results have been appended to a previously preliminary verified report. Neutrophil Absolute (ANC) - Automated 19.10(H) 1.70 - 6.10 x10(3)/mc L 09/26/2024 3:21 PM [facility] Comment:This is an appended report. These results have been appended to a previously preliminary verified report. Lymph % 6.2 % 09/26/2024 3:21 PM [facility] Comment:This is an appended report. These results have been appended to a previously preliminary verified report. Lymph Absolute 1.41 0.90 - 3.20 x10(3)/mc L 09/26/2024 3:21 PM [facility] Comment:This is an appended report. These results have been appended to a previously preliminary verified report. Monocyte % 8.1 % 09/26/2024 3:21 PM [facility] Comment:This is an appended report. These results have been appended to a previously preliminary verified report. Monocyte Absolute 1.85(H) 0.30 - 0.90 x10(3)/mc L 09/26/2024 3:21 PM [facility] Comment:This is an appended report. These results have been appended to a previously preliminary verified report. Eos % 0.0 % 09/26/2024 3:21 PM [facility] Comment:This is an appended report. These results have been appended to a previously preliminary verified report. Eos Absolute <0.04 0.00 - 0.40 x10(3)/mc L 09/26/2024 3:21 PM [facility] Comment:This is an appended report. These results have been appended to a previously preliminary verified report. Basophil % 0.5 % 09/26/2024 3:21 PM [facility] Comment:This is an appended report. These results have been appended to a previously preliminary verified report. Baso Absolute 0.11(H) 0.00 - 0.10 x10(3)/mc L 09/26/2024 3:21 PM [facility] Comment:This is an appended report. These results have been appended to a previously preliminary verified report. Immature Gran % 1.2 % 3:21 PM [facility] Comment:This is an appended report. These results have been appended to a previously preliminary verified report. Immature Gran Absolute 0.28(H) 0.00 - 0.04 x10(3)/mc L 09/26/2024 3:21 PM [facility] Comment:This is an appended report. These results have been appended to a previously preliminary verified report. Blood VENOUS BLOOD SPECIMEN / Unknown Venipuncture / Unknown 09/26/2024 2:39 PM EST 09/26/2024 2:50 PM EST Hayley M Beach MD HEMATOLOGY ORDERABLE S Performing Organization Address City/[facility]/ZIP Co de Phone Number [facility] [place] [address] * Phosphorus (09/26/2024 2:39 PM EST) Pathologist [facility] Phosphorus 3.2 2.5 - 4.5 mg/dL 09/26/2024 4:05 PM EST [facility] Blood VENOUS BLOOD SPECIMEN / Unknown Venipuncture / Unknown 09/26/2024 2:39 PM EST 09/26/2024 2:50 PM EST Marko Dickson MD CHEMISTRY ORDERABLES Performing Organization Address City/[facility]/ZIP Co de Phone Number [facility] [place] [address] * (ABNORMAL) Magnesium (09/26/2024 2:39 PM EST) [facility] Magnesium 0.65(L) 0.69 - 1.07 mMol/L 09/26/2024 4:05 PM EST [facility] Blood VENOUS BLOOD SPECIMEN / Unknown Venipuncture / Unknown 09/26/2024 2:39 PM EST 09/26/2024 2:50 PM EST Marko Dickson MD CHEMISTRY ORDERABLES Performing Organization Address City/[facility]/ZIP Co de Phone Number [facility] [place] [address] * Type and screen ([facility]/CGP/BABITA) (09/26/2024 2:39 PM EST) Pathologist [facility] Type A POSITIVE 09/26/2024 3:45 PM EST [facility] PATIENT HISTORY Found 09/26/2024 3:45 PM EST [facility] Expires at [id number] on: 09/29/2024 09/26/2024 3:45 PM EST [facility] ANTIBODY SCREEN AUTOMATED Negative 09/26/2024 3:45 PM EST [facility] T&S only valid at [facility] 09/26/2024 3:45 PM EST [facility] Blood VENOUS BLOOD SPECIMEN / Unknown Venipuncture / Unknown 09/26/2024 2:39 PM EST 09/26/2024 2:56 PM EST Narrative [facility] - 09/26/2024 3:45 PM EST This Type and Screen result is only valid at the [facility] Marko Dickson MD BLOOD BANK LAB ORDER RANDELL Performing Organization Address City/[facility] Co de Phone Number [facility] [place] [address] * (ABNORMAL) Fibrinogen (09/26/2024 2:39 PM EST) [...] ORDERABLE S Performing Organization Address [facility] Co de Phone Number [facility] [place] [address] * APTT (09/26/2024 2:39 PM EST) Partial [...] Performing Organization Address City/[facility]/ZIP Co de Phone Number [facility] [place] [address] * (ABNORMAL) Prothrombin Time (09/26/2024 2:39 PM EST) [facility] Prothrombin Time 21.6(H) 9.4 - 12.5 sec [...] EST Marko Dickson MD HEMATOLOGY ORDERABLE S [facility] [place] [address] * (ABNORMAL) POC, GLUCOSE (09/26/2024 2:36 PM EST) [facility] Glucometer, POC 268(H) 65 - 199 mg/dL 09/26/2024 2:36 PM EST [facility] Comment:Supplemental ranges: <140 mg/dL before meals <180 mg/dL all other times of the day. Blood CAPILLARY BLOOD / Unknown 09/26/2024 2:36 PM EST 09/26/2024 2:36 PM EST Marko Dickson MD POINT OF CARE TEST O RDERABLES [facility] [place] [address] * (ABNORMAL) Blood culture (09/26/2024 2:22 PM EST) [facility] Blood Culture Methicillin Resistant Staphylococcus aureus(Critical) VITEK 2 METHOD 10/07/2024 7:40 AM EST [facility] Comment: detected by PCR Isolate saved. If future testing is required, contact the Microbiology Visitor Services Representative. Gram Stain Aerobic Bottle: Gram positive cocci in clusters(Critical ) 10/07/2024 7:40 AM EST [facility] [...] MICROBIOLOGY - BLOOD ORDERABLES Performing Organization Address City/State/[facility] Co de Phone Number [facility] [place] [address] * Request For 2nd Read CT Lower Extremity (09/26/2024 1:50 PM EST) Pathologist [employer] WORKSTATION ID [id number] RAD Anatomical Region Laterality Modality Hip, Leg, [...] questions please contact the health health care coach that requested your imaging first. ? Electronically signed by: Lisette Bruno MD, [facility] ([phone]), at 09/26/2024 3:01 PM Narrative 09/26/2024 3:01 PM EST EXAMINATION: REQUEST FOR 2ND READ CT LOWER EXTREMITY CLINICAL HISTORY: Pt s/p LLE femoral-below knee popliteal bypass with PTFE graft, c/f infection surrounding graft, en route to [facility] for possible vascular surgery intervention; Sending Institution [facility]; Date of exam [id number]; I believe a [...] example on series 3, image 8 and 349, 066, 990, 702. No other rim-enhancing fluid collection is seen. [...] c/f infection surrounding graft, en route to [facility] for possiblevascular surgery intervention; Sending Institution [facility]; Date of exam [id number]; Ibelieve a reinterpretation [...] on series 3, image 8 and 641, [phone] [phone]. No other rim-enhancing fluid collection is [...] have questions please contactthe health health care coach that requested your imaging first. Electronically signed by: Lisette Bruno MD, [facility]([phone]), at 09/26/2024 3:01 PM Marko Dickson MD [...] Routine documented in this encounter Care Teams Armor Senior Sergeant Relationship Specialty Start Date End Date Charles Romero [place] [address] PCP - General Internal Medicine 09/18/24 documented as of this encounter"
--- OUTSIDE RECORDS SUMMARY | 2024-10-31 17:03 | XMS_ITS | Encounter Summary ---
Author Organization [facility] [place] [address] Care Team Providers Care Stock Preparation Supervisor Name Role Phone Cahrles Romero Primary Care Provider + Reason for Visit * Auth/Cert (Routine) Specialty Diagnoses / Procedures Referred By William moses Referred To Contact Diagnoses Vascular graft infection, initial encounter Sepsis [A41.9] T82.7XXA Procedures EMERGENCY IPI Angel Gonsalez MD [facility] [place] [address] [facility] Referral ID Status Reason Start Date Expiration Date Visits Re quested Visits Authorized [id number] 1 1 Encounter Details Date Type Department Care Team (Late st Contact Info) Description 09/27/2024 3:10 PM EST - 09/27/2024 5:00 PM EST Surgery [place] [address] Hayley Torres MD [facility] [place] [address] DEBRIDEMENT SKIN AND SUBCU, LOWER EXTREMITY (WRVU 1.01) Social History Tobacco Use Types Packs/Day Years Used Date Smoking Tobacco: Every Day Cigarettes 1 25 Started: 12/28/1986; Last attempted to quit: 12/28/2011 Smokeless Tobacco: Never Alcohol Use Standard Drinks/Week Comments No 0 (1 standard drink = 0.6 oz pur e alcohol) [facility] Utilities Answer Date Recorded In the [...] Operations/Major Procedures: 09/26/24: Explant of infected LEFT MACHINE MAINTENANCE to below-knee popliteal artery PTFE bypass graft [...] toe amputation who was transferred from [facility] given concern for infected left fem-BK [...] pericardial patch and PTFE willard over the MACHINE MAINTENANCE was unincorporated. - Resection of prior femoral [...] Sartorius flap healthy and starting to adhere. [place] drains removed with replacement of 15 Fr [...] 2 tablespoons of dried fruit. Milk and zd-yqeei-xflda yogurt have 15 grams of carbs in a serving. A serving is 1 cup of milk or 3/4 cup (6 oz) of vp-ieaxj-euzrn yogurt. Starchy vegetables have 15 grams of carbs in a serving. A serving is ?? cup of mashed potatoes or sweet potato; 1 cup winter squash; ?? of a small baked potato; ?? cup of cooked beans; or ?? cup cooked corn or green peas. Learn how much carbs to eat each day and at each meal. A dietitian or certified income tax preparer can teach you how to keep track [...] was scheduled for a f/u nutrition evaluation. [employer] Power Plant Superintendent met pt at bedside. Pt sharedthat his [...] Based on current findings- home (sister & ycyizzs-wg-xla's home) Consult Recommendations: No other consults recommended [...] Loss: None Karolyn Hudson MD Vascular Surgery, 2045 10/09/24 Important Studies and Lab Data: Labs: [...] 05/29/2024, no significant changes. Procedure Limited - 51668. Doppler - 54787. Color Doppler - 93634. Suboptimal quality. This study is limited because [...] on series 3, image 8 and 641, 082, 573, 992. No other rim-enhancing fluid collection is seen. [...] PM Isabela Hayward APRN Infectious Disease at [facility] Arrive at: Home [phone] To view instructions for your video visit, click here, or visit this website: [email or web address] If you have not previously downloaded the [facility] patient portal software, [employer], please do so by clicking one of the links below or searching in your device's lobito store. [employer] 11/09/2024 1:30 PM Isabela Hayward APRN Infectious Disease at [facility] Arrive at: Recreation Coordinator Area [phone] 11/21/2024 2:15 PM Dayanara Grover MD Endocrinology at [facility] Arrive at: Recreation Coordinator Area 3A [phone] Future Orders Complete By Expires CBC (with Diff) [[id number] Custom] 10/17/2024 12/11/2024 Process Instructions: INCLUDES: WBC, RBC, Hgb, Hct, Platelets, RBC Indices and Differential Scheduling Instructions: Comments: Questions: OPAT: Order / Recommendation for Post Discharge IV Antibiotic Management [NJX743 CPT(R)] As directed Process Instructions: If no progress note charted, please enter Clinical details in comments. Scheduling Instructions: Comments: - If this order was signed greater than 72 hours prior to [facility] discharge, please call to confirm the accuracy of this order. Please Fax all results to: OPAT Program Infectious Disease Section [facility] [place], [place] [address] FAX: - After hours, please contact the Infectious Disease Physician conductor and engineer at . - Line care instructions - see flush/heparin orders. Facilities may follow organizational policies/practices regarding heparin. - longterm for medication administration/forming department supervisor and catheter care/maintenance authorized. - CVC/PICC Dressing Change weekly and PRN Please use CHG or Bio Patch RN: Please care for PICC line including dressing changes weekly and prn. Please draw labs every Wednesday and PRN and fax results to OPAT at [phone]. Please draw labs off [facility] line. [facility]. Please RN visit for IV ABX teaching and ongoing assessment. Intermediate for Medication Administration/Hookup and catheter care/maintenance: - Teach Patient/Caregiver goals/self-monitoring/therapy administration to independence per the Nursing Care Plan. - longterm visit frequency; initial, weekly and 2 PRN [...] Amaya Hernandez MD Referral for Outpatient Antibiotics [BTO1026 CPT(R)] As directed Process Instructions: Scheduling Instructions: [...] Health. [address] [address] Phone Number: [phone] (home) Date of : 1975 Inpatient DOCUMENTATION FOR VNA SERVICES (INCLUDING THOSE PATIENTS WITH MEDICARE COVERAGE REQUIRING HOME VNA SERVICES AND/OR HOSPICE SERVICES) PATIENT'S LOCATION: Geovanna Dixon Jr. [address] [facility] [address] [phone] (home) Cell: Telephone Information: Oenologist's Name: Geovanna In discussion with the attending physician, it is certified that this patient is under their care and that they, or a Nurse Practitioner, Clinical Nurse specialist or Physician Global Security Architect who is working directly with them, had [...] for managing ADLs. HOME HEALTH CARE AGENCY: [facility] [address] [place] [address] START OF CARE: within 24-48 hours of discharge Patient has Medicare Please note that any additional orders needs or changes will need to be obtained from this patient's PCP: JUSTIN Roberson [address] [facility] [address] . All VNA agencies which cover the area of patient's residence have been reviewed, either verbally or in writing, andpatient/family have chosen the home health care agency noted. Questions: Disciplines Requested: Nursing Physical Therapy Occupational Therapy Recurring Lab Work Interval Expires CBC (with Diff) [[id number] Custom] Once a week until 12/10/2024 12/10/2024 [...] For any problems or questions please call [phone] For issues on weeknights after 5pm and weekends please call [phone] and ask for the Vascular Fellow conductor and engineer. Discharge Medications: Your Medications New Medications Dose [...] - See Instructions). FLUSH PROTOCOL WITH MEDICATIONS ([facility]): Before med infusion: flush with NS 10 [...] - See Instructions). FLUSH PROTOCOL WITH MEDICATIONS ([facility]): Before med infusion: flush with NS 10 [...] can get this completed at 3L at [facility] prior to your [...] For any problems or questions please call [phone] For issues on weeknights after 5pm and weekends please call [phone] and ask for the Vascular Fellow conductor and engineer. documented in this encounter Discharge Instructions * [...] 2 tablespoons of dried fruit. Milk and ng-ekphr-oeons yogurt have 15 grams of carbs in a serving. A serving is 1 cup of milk or 3/4 cup (6 oz) of ke-zqkuj-biyng yogurt. Starchy vegetables have 15 grams of carbs in a serving. A serving is ?? cup of mashed potatoes or sweet potato; 1 cup winter squash; ?? of a small baked potato; ?? cup of cooked beans; or ?? cup cooked corn or green peas. Learn how much carbs to eat each day and at each meal. A dietitian or certified income tax preparer can teach you how to keep track [...] can get this completed at 3L at [facility] prior to your [...] For any problems or questions please call [phone] For issues on weeknights after 5pm and weekends please call [phone] and ask for the Vascular Fellow conductor and engineer. documented in this encounter Medications at Time [...] - See Instructions). FLUSH PROTOCOL WITH MEDICATIONS ([facility]): Before med infusion: flush with NS 10 [...] - See Instructions). FLUSH PROTOCOL WITH MEDICATIONS ([facility]): Before med infusion: flush with NS 10 [...] to contact. Reviewed roles and responsibilities of WEAPONS ELECTRICAL ENGINEERING OFFICER and infusion vendor. Contact information for ID and Vascular team/clinic, WEAPONS ELECTRICAL ENGINEERING OFFICER and infusion vendor given to pt. Discussed f/u appointments in ID 5C clinic, telephone and tele health. Pt verbalized understanding. All questions answered. IV & PO ABX Medications: Daptomycin 700mg IV daily Start/anticipated end date: 10/10/24-11/10/24 WEAPONS ELECTRICAL ENGINEERING OFFICER: [place] Infusion vendor: [facility] Care IV Access: 4 Fr. single lumen [...] [phone]* ASSESSMENT Geoavnna Dixon Jr. is a 49 y.o. [...] 2 tablespoons of dried fruit. Milk and xi-qimnl-gruhn yogurt have 15 grams of carbs in a serving. A serving is 1 cup of milk or 3/4 cup (6 oz) of hm-nvwfz-dkaio yogurt. Starchy vegetables have 15 grams of carbs in a serving. A serving is ?? cup of mashed potatoes or sweet potato; 1 cup winter squash; ?? of a small baked potato; ?? cup of cooked beans; or ?? cup cooked corn or green peas. Learn how much carbs to eat each day and at each meal. A dietitian or certified income tax preparer can teach you how to keep track [...] this time. OT to complete orders. Pager: [phone] Fabián Burrows OT 10/09/2024 Occupational Therapy Rehabilitation [...] Loss: None Karolyn Hudson MD Vascular Surgery, 6799 10/09/24 * Terry Jimenez, PT - 10/09/2024 12:02 PM EST Physical Therapy Visit #2 Patient profile: Geovanna Dixon Jr. is a 49 y.o. male with a history of HTN, HLD, NSTEMI, CAD s/p CABG (12/2011), DM,obesity, PAD s/p L iliofem endart and L fem-BK pop bypass and L 2nd toe amputation who was transferred from [facility], 09/26/24 given concern for infected left fem-BK popliteal PTFE bypass. He is now s/p an explant of an infected left femoral-below knee popliteal artery bypass graft (09/26), I/D groin abscess (09/27), L GSV harvest, vein patch angioplasty, L MACHINE MAINTENANCE and BK pop w/ sartorius flap L fem, I/D, 09/29 L sartorius flap revision, vac change. 10/03/24 NPO at [facility] for OR wound exploration. [...] He mentions he'll stay with sister and mtpddll-ht-dnb upon DC. Pt resting in bed upon [...] up with R and down with L, jvnq-yz-hsed. Balance: Sitting: NORMAL- EOB unsupported good postural [...] Based on current findings- home (sister & dtfkzqs-ui-ldf's home) Consult Recommendations: No other consults recommended [...] OUT: 11:40-11:55 Total Time: 15 (TE-F) minutes TERYR JIMENEZ, PT Pager: [phone] Physical Therapy Inpatient Rehabilitation Department * María [...] toe amputation who was transferred from [facility] given concern for infected left fem-BK [...] smoking 1 week ago. He presented to [facility] on 09/26 and [...] (porcine) 5,000 Units Subcutaneous Q8H [facility] lidocaine 1 patch Transdermal Q24H Operations this [...] Procedure Component Value - Date/Time Blood culture [[id number]] (Abnormal) (Susceptibility) Collected: 09/26/24 1422 Lab Status: Edited Result - FINAL Specimen: Blood, Venous Updated: 10/07/24 0740 Blood Culture Methicillin Resistant Staphylococcus aureus Comment: detected by PCR Isolate saved. If future testing is required, contact the Microbiology Publications Manager. Gram Stain Aerobic Bottle: Gram positive cocci in clusters Susceptibility Methicillin Resistant Staphylococcus aureus MINIMUM INHIBITORY CONCENTRATION VITEK 2 METHOD Clindamycin Resistant Daptomycin Susceptible Gentamicin Susceptible [1] Linezolid Susceptible Oxacillin Resistant Trimethoprim/Sulfa Susceptible Vancomycin Susceptible [1] Gentamicin is not appropriate for monotherapy for gram-positive infections. AFB culture [[id number]] Collected: 09/27/24 1654 Lab Status: Preliminary result Specimen: Tissue from Thigh, Left Updated: 10/05/24 1201 Acid Fast Bacilli Culture No acid fast bacilli isolated at 1 week. Acid Fast Stain No acid fast bacilli seen Blood culture [[id number]] Collected: 09/29/242123 Lab Status: Final result Specimen: Blood, Venous Updated: 10/04/24 2301 Blood Culture No growth at 120 hours Blood culture [[id number]] Collected: 09/29/242123 Lab Status: Final result Specimen: Blood, Venous Updated: 10/04/24 2301 Blood Culture No growth at 120 hours AFB culture [[id number]] Collected: 09/26/24 1702 Lab Status: Preliminary result Specimen: Abscess from Knee, Left Updated: 10/04/24 1201 Acid Fast Bacilli Culture No acid fast bacilli isolated at 1 week. Acid Fast Stain No acid fast bacilli seen Blood culture [[id number]] Collected: 09/28/24 1749 Lab Status: Final result [...] toe amputation who was transferred from [facility] given concern for infected left fem-BK popliteal PTFE bypass. He is now s/p an explantof an infected left femoral-below knee popliteal artery bypass graft (09/26), I/D groin abscess (), L GSV harvest, vein patch angioplasty, L MACHINE MAINTENANCE and BK pop w/ sartorius flap L fem, I/D, 09/29 L sartorius flap revision, vac change. 10/09/24: Progressing well post surgically. Will pull medial thigh drain today, retain sartorius flap drain along with wound vac x 3 sponges ([facility] has approved for home vac) [...] PRN PICC dressing change completed as per [facility] protocol. Positive pressure [...] toe amputation who was transferred from [facility] given concern for infected left fem-BK [...] smoking 1 week ago. He presented to [facility] on 09/26 and [...] Procedure Component Value - Date/Time Blood culture [[id number]] (Abnormal) (Susceptibility) Collected: 09/26/24 1422 Lab Status: Edited Result - FINAL Specimen: Blood, Venous Updated: 10/07/24 0740 Blood Culture Methicillin Resistant Staphylococcus aureus Comment: detected by PCR Isolate saved. If future testing is required, contact the Microbiology Publications Manager. Gram Stain Aerobic Bottle: Gram positive cocci in clusters Susceptibility Methicillin Resistant Staphylococcus aureus MINIMUM INHIBITORY CONCENTRATION VITEK 2 METHOD Clindamycin Resistant Daptomycin Susceptible Gentamicin Susceptible [1] Linezolid Susceptible Oxacillin Resistant Trimethoprim/Sulfa Susceptible Vancomycin Susceptible [1] Gentamicin is not appropriate for monotherapy for gram-positive infections. AFB culture [[id number]] Collected: 09/27/24 165 Lab Status: Preliminary result Specimen: Tissue from Thigh, Left Updated: 10/05/24 1201 Acid Fast Bacilli Culture No acid fast bacilli isolated at 1 week. Acid Fast Stain No acid fast bacilli seen Blood culture [[id number]] Collected: 09/29/242123 Lab Status: Final result Specimen: Blood, Venous Updated: 10/04/24 2301 Blood Culture No growth at 120 hours Blood culture [[id number]] Collected: 09/29/242123 Lab Status: Final result Specimen: Blood, Venous Updated: 10/04/24 2301 Blood Culture No growth at 120 hours AFB culture [[id number]] Collected: 09/26/24 1702 Lab Status: Preliminary result Specimen: Abscess from Knee, Left Updated: 10/04/24 1201 Acid Fast Bacilli Culture No acid fast bacilli isolated at 1 week. Acid Fast Stain No acid fast bacilli seen Blood culture [[id number]] Collected: 09/28/24 1749 Lab Status: Final result Specimen: Blood, Venous Updated: 10/03/24 1901 Blood Culture No growth at 120 hours Blood culture [[id number]] (Abnormal) Collected: 09/27/24 2133 Lab Status: Final result Specimen: Blood, Venous Updated: 10/02/24 0804 Blood Culture Methicillin Resistant Staphylococcus aureus Comment: Susceptibilities previously reported. Gram Stain Aerobic Bottle: Gram positive cocci in clusters Tissue Culture, Aerobic & Anaerobic [[id number]] Collected: 09/27/241653 Lab Status: Final result Specimen: Tissue from Thigh, Left Updated: 10/01/24 1554 Narrative: The following orders were created for panel order Tissue Culture, Aerobic & Anaerobic. Procedure Abnormality Status --------- ------ Tissue Culture, Aerobic ...[[id number]] Anaerobic Culture[[id number]] Final result Please view results for these tests on the individual orders. Anaerobic Culture [[id number]] Collected: 09/27/241653 Lab Status: Final result Specimen: Tissue from Thigh, Left Updated: 10/01/24 1554 Anaerobic Culture No anaerobic organisms isolated Tissue Culture, Aerobic Only [[id number]] (Abnormal) (Susceptibility) Collected: 09/27/241653 Lab Status: Final [...] toe amputation who was transferred from [facility] given concern for infected left fem-BK popliteal PTFE bypass. He is now s/p an explantof an infected left femoral-below knee popliteal artery bypass graft (09/26), I/D groin abscess (), L GSV harvest, vein patch angioplasty, L MACHINE MAINTENANCE and BK pop w/ sartorius flap L [...] 81mg daily Vibha Benson APRN 10/08/2024 Pager: [phone] * Vibha Benson APRN - 10/07/2024 8:52 AM EST Images from the original note were not included. Vascular Surgery Progress Note Geovanna Dixon Jr. is a 49 y.o. male with history of HTN, HLD, NSTEMI, CAD s/p CABG (12/2011), DM, obesity, PAD s/p L iliofem endart and L fem-BK pop bypass and L 2nd toe amputation who was transferred from [facility] given concern for infected left fem-BK [...] smoking 1 week ago. He presented to [facility] on 09/26 and [...] Procedure Component Value - Date/Time Blood culture [[id number]] (Abnormal) (Susceptibility) Collected: 09/26/24 1422 Lab Status: Edited Result - FINAL Specimen: Blood, Venous Updated: 10/07/24 0740 Blood Culture Methicillin Resistant Staphylococcus aureus Comment: detected by PCR Isolate saved. If future testing is required, contact the Microbiology Publications Manager. Gram Stain Aerobic Bottle: Gram positive cocci in clusters Susceptibility Methicillin Resistant Staphylococcus aureus MINIMUM INHIBITORY CONCENTRATION VITEK 2 METHOD Clindamycin Resistant Daptomycin Susceptible Gentamicin Susceptible [1] Linezolid Susceptible Oxacillin Resistant Trimethoprim/Sulfa Susceptible Vancomycin Susceptible [1] Gentamicin is not appropriate for monotherapy for gram-positive infections. AFB culture [[id number]] Collected: 09/27/24 1654 Lab Status: Preliminary result Specimen: Tissue from Thigh, Left Updated: 10/05/24 1201 Acid Fast Bacilli Culture No acid fast bacilli isolated at 1 week. Acid Fast Stain No acid fast bacilli seen Blood culture [[id number]] Collected: 09/29/242123 Lab Status: Final result Specimen: Blood, Venous Updated: 10/04/24 2301 Blood Culture No growth at 120 hours Blood culture [[id number]] Collected: 09/29/242123 Lab Status: Final result Specimen: Blood, Venous Updated: 10/04/24 2301 Blood Culture No growth at 120 hours AFB culture [[id number]] Collected: 09/26/24 1702 Lab Status: Preliminary result Specimen: Abscess from Knee, Left Updated: 10/04/24 1201 Acid Fast Bacilli Culture No acid fast bacilli isolated at 1 week. Acid Fast Stain No acid fast bacilli seen Blood culture [[id number]] Collected: 09/28/24 1749 Lab Status: Final result Specimen: Blood, Venous Updated: 10/03/24 1901 Blood Culture No growth at 120 hours Blood culture [[id number]] (Abnormal) Collected: 09/27/24 2133 Lab Status: Final result Specimen: Blood, Venous Updated: 10/02/24 0804 Blood Culture Methicillin Resistant Staphylococcus aureus Comment: Susceptibilities previously reported. Gram Stain Aerobic Bottle: Gram positive cocci in clusters Tissue Culture, Aerobic & Anaerobic [[id number]] Collected: 09/27/24 165 Lab Status: Final result Specimen: Tissue from Thigh, Left Updated: 10/01/24 1554 Narrative: The following orders were created for panel order Tissue Culture, Aerobic & Anaerobic. Procedure Abnormality Status --------- ------ Tissue Culture, Aerobic ...[[id number]] Anaerobic Culture[[id number]] Final result Please view results for these tests on the individual orders. Anaerobic Culture [[id number]] Collected: 09/27/24 165 Lab Status: Final result Specimen: Tissue from Thigh, Left Updated: 10/01/24 1554 Anaerobic Culture No anaerobic organisms isolated Tissue Culture, Aerobic Only [[id number]] (Abnormal) (Susceptibility) Collected: 09/27/24 165 Lab Status: [...] is considered susceptible to doxycycline. Blood culture [[id number]] (Abnormal) Collected: 09/26/24 1845 Lab Status: Final result Specimen: Blood, Venous Updated: 10/01/24 0658 Blood Culture Methicillin Resistant Staphylococcus aureus Comment: isolated. Susceptibilities previously reported. Gram Stain Aerobic Bottle: Gram positive cocci in clusters Abscess/Wound Aspirate Culture, Aerobic & Anaerobic [[id number]] (Abnormal) Collected: 09/26/241649 Lab Status: Final result Specimen: Abscess from Groin, Left Updated: 09/30/24 155 Narrative: The following orders were created for panel order Abscess/Wound Aspirate Culture, Aerobic & Anaerobic. Procedure Abnormality Status --------- ------ Abscess/Wound Aspirate C...[[id number]] Abnormal Final result Anaerobic Culture[[id number]] Final result Please view results for these tests on the individual orders. Anaerobic Culture [[id number]] Collected: 09/26/24 165 Lab Status: Final result Specimen: Abscess from Groin, Left Updated: 09/30/24 1551 Anaerobic Culture No anaerobic organisms isolated Abscess/Wound Aspirate Culture, Aerobic & Anaerobic [[id number]] (Abnormal) Collected: 09/26/24 1702 Lab Status: Final result Specimen: Abscess from Knee, Left Updated: 09/30/24 1551 Narrative: The following orders were created for panel order Abscess/Wound Aspirate Culture, Aerobic & Anaerobic. Procedure Abnormality Status --------- ------ Abscess/Wound Aspirate C...[[id number]] Abnormal Final result Anaerobic Culture[[id number]] Final result Please view results for these tests on the individual orders. Anaerobic Culture [[id number]] Collected: 09/26/24 1702 Lab Status: Final result Specimen: Abscess from Knee, Left Updated: 09/30/24 1551 Anaerobic Culture No anaerobic organisms isolated Sonicated Tissue/Implant Culture [[id number]] (Abnormal) Collected: 09/26/24 1716 Lab Status: Final result Specimen: Vascular Graft from Leg, Left Updated: 09/30/24 1349 Sonicated Tissue/Implant Culture Methicillin Resistant Staphylococcus aureus Comment: isolated from broth culture. Susceptibilities previously reported. Abscess/Wound Aspirate Culture, Aerobic Only [[id number]] (Abnormal) (Susceptibility) Collected: 09/26/24 1702 Lab Status: [...] to doxycycline. Abscess/Wound Aspirate Culture, Aerobic Only [[id number]] (Abnormal) (Susceptibility) Collected: 09/26/24 1650 Lab Status: [...] toe amputation who was transferred from [facility] given concern for infected left fem-BK popliteal PTFE bypass. He is now s/p an explantof an infected left femoral-below knee popliteal artery bypass graft (09/26), I/D groin abscess (), L GSV harvest, vein patch angioplasty, L MACHINE MAINTENANCE and BK pop w/ sartorius flap L [...] 81mg daily Vibha Benson APRN 10/07/2024 Pager: [phone] * Karina-Jessica Mcrae, PT - 10/06/2024 3:21 PM EST 10/06/24 2380 Evaluation & Treatment Document Type contact Comment, [...] toe amputation who was transferred from [facility] given concern for infected left fem-BK [...] smoking 1 week ago. He presented to [facility] on 09/26 and [...] Procedure Component Value - Date/Time AFB culture [[id number]] Collected: 09/27/241653 Lab Status: Preliminary result Specimen: Tissue from Thigh, Left Updated: 10/05/24 1201 Acid Fast Bacilli Culture No acid fast bacilli isolated at 1 week. Acid Fast Stain No acid fast bacilli seen Blood culture [[id number]] Collected: 09/29/242123 Lab Status: Final result Specimen: Blood, Venous Updated: 10/04/24 2301 Blood Culture No growth at 120 hours Blood culture [[id number]] Collected: 09/29/242123 Lab Status: Final result Specimen: Blood, Venous Updated: 10/04/24 2301 Blood Culture No growth at 120 hours AFB culture [[id number]] Collected: 09/26/24 170 Lab Status: Preliminary result Specimen: Abscess from Knee, Left Updated: 10/04/24 1201 Acid Fast Bacilli Culture No acid fast bacilli isolated at 1 week. Acid Fast Stain No acid fast bacilli seen Blood culture [[id number]] Collected: 09/28/24 1749 Lab Status: Final result Specimen: Blood, Venous Updated: 10/03/24 1901 Blood Culture No growth at 120 hours Blood culture [[id number]] (Abnormal) Collected: 09/27/242132 Lab Status: Final result Specimen: Blood, Venous Updated: 10/02/24 0804 Blood Culture Methicillin Resistant Staphylococcus aureus Comment: Susceptibilities previously reported. Gram Stain Aerobic Bottle: Gram positive cocci in clusters Tissue Culture, Aerobic & Anaerobic [[id number]] Collected: 09/27/241653 Lab Status: Final result Specimen: Tissue from Thigh, Left Updated: 10/01/24 1554 Narrative: The following orders were created for panel order Tissue Culture, Aerobic & Anaerobic. Procedure Abnormality Status --------- ------ Tissue Culture, Aerobic ...[[id number]] Anaerobic Culture[[id number]] Final result Please view results for these tests on the individual orders. Anaerobic Culture [[id number]] Collected: 09/27/241653 Lab Status: Final result Specimen: Tissue from Thigh, Left Updated: 10/01/24 1554 Anaerobic Culture No anaerobic organisms isolated Tissue Culture, Aerobic Only [[id number]] (Abnormal) (Susceptibility) Collected: 09/27/24 1654 Lab Status: [...] is considered susceptible to doxycycline. Blood culture [[id number]] (Abnormal) (Susceptibility) Collected: 09/26/24 1422 Lab Status: Edited Specimen: Blood, Venous Updated: 10/01/24 0658 Blood Culture Methicillin Resistant Staphylococcus aureus Comment: detected by PCR Isolate saved. If future testing is required, contact the Microbiology Publications Manager. Gram Stain Aerobic Bottle: Gram positive cocci in clusters Susceptibility Methicillin Resistant Staphylococcus aureus VITEK 2 METHOD Clindamycin Resistant Gentamicin Susceptible [1] Linezolid Susceptible Oxacillin Resistant Trimethoprim/Sulfa Susceptible Vancomycin Susceptible [1] Gentamicin is not appropriate for monotherapy for gram-positive infections. Blood culture [[id number]] (Abnormal) Collected: 09/26/24 1845 Lab Status: Final result Specimen: Blood, Venous Updated: 10/01/24 0658 Blood Culture Methicillin Resistant Staphylococcus aureus Comment: isolated. Susceptibilities previously reported. Gram Stain Aerobic Bottle: Gram positive cocci in clusters Abscess/Wound Aspirate Culture, Aerobic & Anaerobic [[id number]] (Abnormal) Collected: 09/26/24 165 Lab Status: Final result Specimen: Abscess from Groin, Left Updated: 09/30/24 1551 Narrative: The following orders were created for panel order Abscess/Wound Aspirate Culture, Aerobic & Anaerobic. Procedure Abnormality Status --------- ------ Abscess/Wound Aspirate C...[[id number]] Abnormal Final result Anaerobic Culture[[id number]] Final result Please view results for these tests on the individual orders. Anaerobic Culture [[id number]] Collected: 09/26/24 165 Lab Status: Final result Specimen: Abscess from Groin, Left Updated: 09/30/24 1551 Anaerobic Culture No anaerobic organisms isolated Abscess/Wound Aspirate Culture, Aerobic & Anaerobic [[id number]] (Abnormal) Collected: 09/26/24 1702 Lab Status: Final result Specimen: Abscess from Knee, Left Updated: 09/30/24 1551 Narrative: The following orders were created for panel order Abscess/Wound Aspirate Culture, Aerobic & Anaerobic. Procedure Abnormality Status --------- ------ Abscess/Wound Aspirate C...[[id number]] Abnormal Final result Anaerobic Culture[[id number]] Final result Please view results for these tests on the individual orders. Anaerobic Culture [[id number]] Collected: 09/26/24 1702 Lab Status: Final result Specimen: Abscess from Knee, Left Updated: 09/30/24 1551 Anaerobic Culture No anaerobic organisms isolated Sonicated Tissue/Implant Culture [[id number]] (Abnormal) Collected: 09/26/24 1716 Lab Status: Final result Specimen: Vascular Graft from Leg, Left Updated: 09/30/24 1349 Sonicated Tissue/Implant Culture Methicillin Resistant Staphylococcus aureus Comment: isolated from broth culture. Susceptibilities previously reported. Abscess/Wound Aspirate Culture, Aerobic Only [[id number]] (Abnormal) (Susceptibility) Collected: 09/26/24 170 Lab Status: [...] to doxycycline. Abscess/Wound Aspirate Culture, Aerobic Only [[id number]] (Abnormal) (Susceptibility) Collected: 09/26/24 1650 Lab Status: [...] toe amputation who was transferred from [facility] given concern for infected left fem-BK popliteal PTFE bypass. He is now s/p an explantof an infected left femoral-below knee popliteal artery bypass graft (09/26), I/D groin abscess (), L GSV harvest, vein patch angioplasty, L MACHINE MAINTENANCE and BK pop w/ sartorius flap L [...] 81mg daily Benjamin Iniguez MD 10/06/2024 Pager: [phone] * Benjamin Iniguez MD - 10/05/2024 7:42 AM EST Images from the original note were not included. Vascular Surgery Progress Note Geovanna Dixon Jr. is a 49 y.o. male with history of HTN, HLD, NSTEMI, CAD s/p CABG (12/2011), DM, obesity, PAD s/p L iliofem endart and L fem-BK pop bypass and L 2nd toe amputation who was transferred from [facility] given concern for infected left fem-BK [...] smoking 1 week ago. He presented to [facility] on 09/26 and [...] lispro 1-6 Units Subcutaneous Q4H [facility] insulin lispro 0-11 Units Subcutaneous TID WC [...] Procedure Component Value - Date/Time Blood culture [[id number]] Collected: 09/29/242123 Lab Status: Final result Specimen: Blood, Venous Updated: 10/04/24 230 Blood Culture No growth at 120 hours Blood culture [[id number]] Collected: 09/29/242123 Lab Status: Final result Specimen: Blood, Venous Updated: 10/04/24 230 Blood Culture No growth at 120 hours AFB culture [[id number]] Collected: 09/26/24 1702 Lab Status: Preliminary result Specimen: Abscess from Knee, Left Updated: 10/04/24 1201 Acid Fast Bacilli Culture No acid fast bacilli isolated at 1 week. Acid Fast Stain No acid fast bacilli seen Blood culture [[id number]] Collected: 09/28/24 1749 Lab Status: Final result Specimen: Blood, Venous Updated: 10/03/24 1901 Blood Culture No growth at 120 hours Blood culture [[id number]] (Abnormal) Collected: 09/27/242132 Lab Status: Final result Specimen: Blood, Venous Updated: 10/02/24 0804 Blood Culture Methicillin Resistant Staphylococcus aureus Comment: Susceptibilities previously reported. Gram Stain Aerobic Bottle: Gram positive cocci in clusters Tissue Culture, Aerobic & Anaerobic [[id number]] Collected: 09/27/241653 Lab Status: Final result Specimen: Tissue from Thigh, Left Updated: 10/01/24 1554 Narrative: The following orders were created for panel order Tissue Culture, Aerobic & Anaerobic. Procedure Abnormality Status --------- ------ Tissue Culture, Aerobic ...[[id number]] Anaerobic Culture[[id number]] Final result Please view results for these tests on the individual orders. Anaerobic Culture [[id number]] Collected: 09/27/241653 Lab Status: Final result Specimen: Tissue from Thigh, Left Updated: 10/01/24 1554 Anaerobic Culture No anaerobic organisms isolated Tissue Culture, Aerobic Only [[id number]] (Abnormal) (Susceptibility) Collected: 09/27/241653 Lab Status: Final [...] is considered susceptible to doxycycline. Blood culture [[id number]] (Abnormal) (Susceptibility) Collected: 09/26/24 1422 Lab Status: Final result Specimen: Blood, Venous Updated: 10/01/24 0658 Blood Culture Methicillin Resistant Staphylococcus aureus Comment: detected by PCR Isolate saved. If future testing is required, contact the Microbiology Publications Manager. Gram Stain Aerobic Bottle: Gram positive cocci in clusters Susceptibility Methicillin Resistant Staphylococcus aureus VITEK 2 METHOD Clindamycin Resistant Gentamicin Susceptible [1] Linezolid Susceptible Oxacillin Resistant Trimethoprim/Sulfa Susceptible Vancomycin Susceptible [1] Gentamicin is not appropriate for monotherapy for gram-positive infections. Blood culture [[id number]] (Abnormal) Collected: 09/26/24 1845 Lab Status: Final result Specimen: Blood, Venous Updated: 10/01/24 0658 Blood Culture Methicillin Resistant Staphylococcus aureus Comment: isolated. Susceptibilities previously reported. Gram Stain Aerobic Bottle: Gram positive cocci in clusters Abscess/Wound Aspirate Culture, Aerobic & Anaerobic [[id number]] (Abnormal) Collected: 09/26/24 165 Lab Status: Final result Specimen: Abscess from Groin, Left Updated: 09/30/24 1551 Narrative: The following orders were created for panel order Abscess/Wound Aspirate Culture, Aerobic & Anaerobic. Procedure Abnormality Status --------- ------ Abscess/Wound Aspirate C...[[id number]] Abnormal Final result Anaerobic Culture[[id number]] Final result Please view results for these tests on the individual orders. Anaerobic Culture [[id number]] Collected: 09/26/241649 Lab Status: Final result Specimen: Abscess from Groin, Left Updated: 09/30/24 1551 Anaerobic Culture No anaerobic organisms isolated Abscess/Wound Aspirate Culture, Aerobic & Anaerobic [[id number]] (Abnormal) Collected: 09/26/24 170 Lab Status: Final result Specimen: Abscess from Knee, Left Updated: 09/30/24 1551 Narrative: The following orders were created for panel order Abscess/Wound Aspirate Culture, Aerobic & Anaerobic. Procedure Abnormality Status --------- ------ Abscess/Wound Aspirate C...[[id number]] Abnormal Final result Anaerobic Culture[[id number]] Final result Please view results for these tests on the individual orders. Anaerobic Culture [[id number]] Collected: 09/26/24 170 Lab Status: Final result Specimen: Abscess from Knee, Left Updated: 09/30/24 1551 Anaerobic Culture No anaerobic organisms isolated Sonicated Tissue/Implant Culture [[id number]] (Abnormal) Collected: 09/26/24 1716 Lab Status: Final result Specimen: Vascular Graft from Leg, Left Updated: 09/30/24 1349 Sonicated Tissue/Implant Culture Methicillin Resistant Staphylococcus aureus Comment: isolated from broth culture. Susceptibilities previously reported. Abscess/Wound Aspirate Culture, Aerobic Only [[id number]] (Abnormal) (Susceptibility) Collected: 09/26/24 1702 Lab Status: [...] to doxycycline. Abscess/Wound Aspirate Culture, Aerobic Only [[id number]] (Abnormal) (Susceptibility) Collected: 09/26/24 165 Lab Status: [...] is considered susceptible to doxycycline. AFB culture [[id number]] Collected: 09/27/241653 Lab Status: Preliminary result Specimen: Tissue from Thigh, Left Updated: 09/29/24 1201 Acid Fast Bacilli Culture No acid fast bacilli isolated to date. Acid Fast Stain No acid fast bacilli seen Fungus culture [[id number]] Collected: 09/27/241653 Lab Status: Preliminary result Specimen: [...] toe amputation who was transferred from [facility] given concern for infected left fem-BK popliteal PTFE bypass. He is now s/p an explantof an infected left femoral-below knee popliteal artery bypass graft (09/26), I/D groin abscess (), L GSV harvest, vein patch angioplasty, L MACHINE MAINTENANCE and BK pop w/ sartorius flap L [...] 81mg daily Benjamin Iniguez MD 10/05/2024 Pager: [phone] Associated attestation - Hayley Torres MD - [...] aspirate- MRSA Antimicrobials: Vancomycin- Imaging/diagnostics: CT lower [id number] IMPRESSION: 1. Interval explant of LEFT femoral [...] male who underwent a left lower extremity kybcdfn-wc-xdkgt-kneepopliteal artery bypass on August 01, 2024, and [...] concerns. Please page ID Green team (pager [phone]) with questions or concerns. Lynne Leavitt MD Fellow, Infectious Disease Pager: [phone] Epic Chat 10/02/2024 This note was created using [employer]) voice recognition software. Associated attestation - Amaya [...] Procedure Component Value - Date/Time Blood culture [[id number]] Collected: 09/29/242123 Lab Status: Final result Specimen: Blood, Venous Updated: 10/04/24 2301 Blood Culture No growth at 120 hours Blood culture [[id number]] Collected: 09/29/242123 Lab Status: Final result Specimen: Blood, Venous Updated: 10/04/24 2301 Blood Culture No growth at 120 hours AFB culture [[id number]] Collected: 09/26/24 170 Lab Status: Preliminary result Specimen: Abscess from Knee, Left Updated: 10/04/24 120 Acid Fast Bacilli Culture No acid fast bacilli isolated at 1 week. Acid Fast Stain No acid fast bacilli seen Blood culture [[id number]] Collected: 09/28/24 1749 Lab Status: Final result Specimen: Blood, Venous Updated: 10/03/24 1901 Blood Culture No growth at 120 hours Blood culture [[id number]] (Abnormal) Collected: 09/27/242132 Lab Status: Final result Specimen: Blood, Venous Updated: 10/02/24 0804 Blood Culture Methicillin Resistant Staphylococcus aureus Comment: Susceptibilities previously reported. Gram Stain Aerobic Bottle: Gram positive cocci in clusters Tissue Culture, Aerobic & Anaerobic [[id number]] Collected: 09/27/241653 Lab Status: Final result Specimen: Tissue from Thigh, Left Updated: 10/01/24 155 Narrative: The following orders were created for panel order Tissue Culture, Aerobic & Anaerobic. Procedure Abnormality Status --------- ------ Tissue Culture, Aerobic ...[[id number]] Anaerobic Culture[[id number]] Final result Please view results for these tests on the individual orders. Anaerobic Culture [[id number]] Collected: 09/27/241653 Lab Status: Final result Specimen: Tissue from Thigh, Left Updated: 10/01/24 155 Anaerobic Culture No anaerobic organisms isolated Tissue Culture, Aerobic Only [[id number]] (Abnormal) (Susceptibility) Collected: 11/20/24 1654 Lab Status: [...] is considered susceptible to doxycycline. Blood culture [[id number]] (Abnormal) (Susceptibility) Collected: 09/26/24 1422 Lab Status: Final result Specimen: Blood, Venous Updated: 10/01/24 0658 Blood Culture Methicillin Resistant Staphylococcus aureus Comment: detected by PCR Isolate saved. If future testing is required, contact the Microbiology Publications Manager. Gram Stain Aerobic Bottle: Gram positive cocci in clusters Susceptibility Methicillin Resistant Staphylococcus aureus VITEK 2 METHOD Clindamycin >=8.0 ug/ml Resistant Gentamicin <=0.5 ug/ml Susceptible [1] Linezolid 2.0 ug/ml Susceptible Oxacillin >=4.0 ug/ml Resistant Trimethoprim/Sulfa <=10.0 ug/ml Susceptible Vancomycin 1.0 ug/ml Susceptible [1] Gentamicin is not appropriate for monotherapy for gram-positive infections. Blood culture [[id number]] (Abnormal) Collected: 09/26/24 1845 Lab Status: Final result Specimen: Blood, Venous Updated: 10/01/24 0658 Blood Culture Methicillin Resistant Staphylococcus aureus Comment: isolated. Susceptibilities previously reported. Gram Stain Aerobic Bottle: Gram positive cocci in clusters Abscess/Wound Aspirate Culture, Aerobic & Anaerobic [[id number]] (Abnormal) Collected: 09/26/24 1650 Lab Status: Final result Specimen: Abscess from Groin, Left Updated: 09/30/24 1551 Narrative: The following orders were created for panel order Abscess/Wound Aspirate Culture, Aerobic & Anaerobic. Procedure Abnormality Status --------- ------ Abscess/Wound Aspirate C...[[id number]] Abnormal Final result Anaerobic Culture[[id number]] Final result Please view results for these tests on the individual orders. Anaerobic Culture [[id number]] Collected: 09/26/24 1650 Lab Status: Final result Specimen: Abscess from Groin, Left Updated: 09/30/24 1551 Anaerobic Culture No anaerobic organisms isolated Abscess/Wound Aspirate Culture, Aerobic & Anaerobic [[id number]] (Abnormal) Collected: 09/26/24 1702 Lab Status: Final result Specimen: Abscess from Knee, Left Updated: 09/30/24 1551 Narrative: The following orders were created for panel order Abscess/Wound Aspirate Culture, Aerobic & Anaerobic. Procedure Abnormality Status --------- ------ Abscess/Wound Aspirate C...[[id number]] Abnormal Final result Anaerobic Culture[[id number]] Final result Please view results for these tests on the individual orders. Anaerobic Culture [[id number]] Collected: 09/26/24 170 Lab Status: Final result Specimen: Abscess from Knee, Left Updated: 09/30/24 1551 Anaerobic Culture No anaerobic organisms isolated Sonicated Tissue/Implant Culture [[id number]] (Abnormal) Collected: 09/26/24 1716 Lab Status: Final result Specimen: Vascular Graft from Leg, Left Updated: 09/30/24 1349 Sonicated Tissue/Implant Culture Methicillin Resistant Staphylococcus aureus Comment: isolated from broth culture. Susceptibilities previously reported. Abscess/Wound Aspirate Culture, Aerobic Only [[id number]] (Abnormal) (Susceptibility) Collected: 09/26/24 170 Lab Status: [...] to doxycycline. Abscess/Wound Aspirate Culture, Aerobic Only [[id number]] (Abnormal) (Susceptibility) Collected: 09/26/241649 Lab Status: Final [...] is considered susceptible to doxycycline. AFB culture [[id number]] Collected: 09/27/241653 Lab Status: Preliminary result Specimen: Tissue from Thigh, Left Updated: 09/29/24 1201 Acid Fast Bacilli Culture No acid fast bacilli isolated to date. Acid Fast Stain No acid fast bacilli seen Fungus culture [[id number]] Collected: 09/27/241653 Lab Status: Preliminary result Specimen: [...] for consulting infectious diseases. Amaya Hernandez MD, [facility] Infectious Diseases Staff Physician * [...] Diet NPO Monitoring: Q4 Fawn Cunningham APRN [facility] Endocrinology Diabetes Management Pager [phone] Weekends please page [phone] minutes were spent over the course [...] toe amputation who was transferred from [facility] given concern for infected left fem-BK [...] smoking 1 week ago. He presented to [facility] on 09/26 and [...] lispro 1-6 Units Subcutaneous Q4H [facility] insulin lispro 0-11 Units Subcutaneous TID WC acetaminophen 975 mg Oral Q6H [facility] atorvastatin 80 mg Oral QPM aspirin EC 81 mg Oral Daily methylphenidate 20 mg Oral TID pantoprazole EC 40 mg Oral Daily senna-docusate 2 tablet Oral BID venlafaxine XR 225 mg Oral Daily heparin (porcine) 5,000 Units Subcutaneous Q8H [facility] lidocaine 1 patch Transdermal Q24H Operations this [...] Procedure Component Value - Date/Time Blood culture [[id number]] Collected: 09/29/242123 Lab Status: Preliminary result Specimen: Blood, Venous Updated: 10/03/24 230 Blood Culture No growth at 96 hours Blood culture [[id number]] Collected: 09/29/242123 Lab Status: Preliminary result Specimen: Blood, Venous Updated: 10/03/24 2301 Blood Culture No growth at 96 hours Blood culture [[id number]] Collected: 09/28/24 1749 Lab Status: Final result Specimen: Blood, Venous Updated: 10/03/24 1901 Blood Culture No growth at 120 hours Blood culture [[id number]] (Abnormal) Collected: 09/27/242132 Lab Status: Final result Specimen: Blood, Venous Updated: 10/02/24 0804 Blood Culture Methicillin Resistant Staphylococcus aureus Comment: Susceptibilities previously reported. Gram Stain Aerobic Bottle: Gram positive cocci in clusters Tissue Culture, Aerobic & Anaerobic [[id number]] Collected: 09/27/24 1654 Lab Status: Final result Specimen: Tissue from Thigh, Left Updated: 10/01/24 1554 Narrative: The following orders were created for panel order Tissue Culture, Aerobic & Anaerobic. Procedure Abnormality Status --------- ------ Tissue Culture, Aerobic ...[[id number]] Anaerobic Culture[[id number]] Final result Please view results for these tests on the individual orders. Anaerobic Culture [[id number]] Collected: 09/27/24 1654 Lab Status: Final result Specimen: Tissue from Thigh, Left Updated: 10/01/24 1554 Anaerobic Culture No anaerobic organisms isolated Tissue Culture, Aerobic Only [[id number]] (Abnormal) (Susceptibility) Collected: 09/27/24 1654 Lab Status: [...] is considered susceptible to doxycycline. Blood culture [[id number]] (Abnormal) (Susceptibility) Collected: 09/26/24 1422 Lab Status: Final result Specimen: Blood, Venous Updated: 10/01/24 0658 Blood Culture Methicillin Resistant Staphylococcus aureus Comment: detected by PCR Isolate saved. If future testing is required, contact the Microbiology Publications Manager. Gram Stain Aerobic Bottle: Gram positive cocci in clusters Susceptibility Methicillin Resistant Staphylococcus aureus VITEK 2 METHOD Clindamycin Resistant Gentamicin Susceptible [1] Linezolid Susceptible Oxacillin Resistant Trimethoprim/Sulfa Susceptible Vancomycin Susceptible [1] Gentamicin is not appropriate for monotherapy for gram-positive infections. Blood culture [[id number]] (Abnormal) Collected: 09/26/24 1845 Lab Status: Final result Specimen: Blood, Venous Updated: 10/01/24 0658 Blood Culture Methicillin Resistant Staphylococcus aureus Comment: isolated. Susceptibilities previously reported. Gram Stain Aerobic Bottle: Gram positive cocci in clusters Abscess/Wound Aspirate Culture, Aerobic & Anaerobic [[id number]] (Abnormal) Collected: 09/26/24 1650 Lab Status: Final result Specimen: Abscess from Groin, Left Updated: 09/30/24 1551 Narrative: The following orders were created for panel order Abscess/Wound Aspirate Culture, Aerobic & Anaerobic. Procedure Abnormality Status --------- ------ Abscess/Wound Aspirate C...[[id number]] Abnormal Final result Anaerobic Culture[[id number]] Final result Please view results for these tests on the individual orders. Anaerobic Culture [[id number]] Collected: 09/26/24 1650 Lab Status: Final result Specimen: Abscess from Groin, Left Updated: 09/30/24 1551 Anaerobic Culture No anaerobic organisms isolated Abscess/Wound Aspirate Culture, Aerobic & Anaerobic [[id number]] (Abnormal) Collected: 09/26/24 170 Lab Status: Final result Specimen: Abscess from Knee, Left Updated: 09/30/24 1551 Narrative: The following orders were created for panel order Abscess/Wound Aspirate Culture, Aerobic & Anaerobic. Procedure Abnormality Status --------- ------ Abscess/Wound Aspirate C...[[id number]] Abnormal Final result Anaerobic Culture[[id number]] Final result Please view results for these tests on the individual orders. Anaerobic Culture [[id number]] Collected: 09/26/24 1702 Lab Status: Final result Specimen: Abscess from Knee, Left Updated: 09/30/24 1551 Anaerobic Culture No anaerobic organisms isolated Sonicated Tissue/Implant Culture [[id number]] (Abnormal) Collected: 09/26/24 1716 Lab Status: Final result Specimen: Vascular Graft from Leg, Left Updated: 09/30/24 1349 Sonicated Tissue/Implant Culture Methicillin Resistant Staphylococcus aureus Comment: isolated from broth culture. Susceptibilities previously reported. Abscess/Wound Aspirate Culture, Aerobic Only [[id number]] (Abnormal) (Susceptibility) Collected: 09/26/24 1702 Lab Status: [...] to doxycycline. Abscess/Wound Aspirate Culture, Aerobic Only [[id number]] (Abnormal) (Susceptibility) Collected: 09/26/24 1650 Lab Status: [...] is considered susceptible to doxycycline. AFB culture [[id number]] Collected: 09/27/24 165 Lab Status: Preliminary result Specimen: Tissue from Thigh, Left Updated: 09/29/24 1201 Acid Fast Bacilli Culture No acid fast bacilli isolated to date. Acid Fast Stain No acid fast bacilli seen AFB culture [[id number]] Collected: 09/26/24 1702 Lab Status: Preliminary result Specimen: Abscess from Knee, Left Updated: 09/29/24 1201 Acid Fast Bacilli Culture No acid fast bacilli isolated to date. Acid Fast Stain No acid fast bacilli seen Fungus culture [[id number]] Collected: 09/27/24 165 Lab Status: Preliminary result Specimen: Tissue from Thigh, Left Updated: 09/28/24 0748 Fungus Culture No fungus isolated to date MRSA PCR Screen [[id number]] (Abnormal) Collected: 09/27/24 0751 Lab Status: Final result Specimen: Swab from Nares Updated: 09/27/24 1156 MRSA PCR Detected Narrative: This test was performed using the Xpert MRSA NxG test kit and is run on the [employer] GeneXpert Dx System. This test is cleared [...] toe amputation who was transferred from [facility] given concern for infected left fem-BK popliteal PTFE bypass. He is now s/p an explantof an infected left femoral-below knee popliteal artery bypass graft (09/26), I/D groin abscess (), L GSV harvest, vein patch angioplasty, L MACHINE MAINTENANCE and BK pop w/ sartorius flap L [...] 81mg daily Benjamin Iniguez MD 10/04/2024 Pager: [phone] Associated attestation - Hayley Torres MD - [...] was scheduled for a f/u nutrition evaluation. [employer] Superintendent met pt at bedside. Pt sharedthat his [...] nausea and no vomiting Last Bowel Movement: (TREKKING GUIDE- MD made aware) Patient education / questions: all nutrition related questions answered at this time Nutrition services to follow weekly through hospital course unless consulted in the interim. Linda Bates [employer] Diameter Grinder Tool * Jessica Renae, PT - 10/03/2024 11:30 AM EST Physical Therapy Evaluation Patient profile: Geovanna Dixon Jr. is a 49 y.o. male with a history of HTN, HLD, NSTEMI, CAD s/p CABG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 Culture No fungus isolated to date Fungus culture [[id number]] Collected: 09/26/24 1702 Lab Status: Preliminary result [...] toe amputation who was transferred from [facility] given concern for infected left fem-BK popliteal PTFE bypass. He is now s/p an explantof an infected left femoral-below knee popliteal artery bypass graft (09/26), I/D groin abscess (), L GSV harvest, vein patch angioplasty, L MACHINE MAINTENANCE and BK pop w/ sartorius flap L [...] ASA 81 María Carranza, RESHMA 10/01/2024 Pager: [phone] * Karolyn Hudson MD - 09/30/2024 11:21 AM EST Images from the original note were not included. Vascular Surgery Progress Note Patient ID Geovanna Dixon Jr. is a 49 y.o. male with history of HTN, HLD, NSTEMI, CAD s/p CABG (12/2011), DM, obesity, PAD s/p L iliofem endart and L fem-BK pop bypass and L 2nd toe amputation who was transferred from [facility] given concern for infected left fem-BK [...] smoking 1 week ago. He presented to [facility] on 09/26 and [...] Procedure Component Value - Date/Time Blood culture [[id number]] (Abnormal) Collected: 09/27/24 2133 Lab Status: Preliminary result Specimen: Blood, Venous Updated: 09/30/24 0718 Blood Culture Methicillin Resistant Staphylococcus aureus Comment: Susceptibilities previously reported. Gram Stain Aerobic Bottle: Gram positive cocci in clusters Blood culture [[id number]] Collected: 09/28/24 1749 Lab Status: Preliminary result Specimen: Blood, Venous Updated: 09/29/24 1901 Blood Culture No Growth at 18-24 hrs. AFB culture [[id number]] Collected: 09/27/24 1654 Lab Status: Preliminary result Specimen: Tissue from Thigh, Left Updated: 09/29/24 1201 Acid Fast Bacilli Culture No acid fast bacilli isolated to date. Acid Fast Stain No acid fast bacilli seen AFB culture [[id number]] Collected: 09/26/24 1702 Lab Status: Preliminary result Specimen: Abscess from Knee, Left Updated: 09/29/24 1201 Acid Fast Bacilli Culture No acid fast bacilli isolated to date. Acid Fast Stain No acid fast bacilli seen Sonicated Tissue/Implant Culture [[id number]] (Abnormal) Collected: 09/26/24 1716 Lab Status: Preliminary result Specimen: Vascular Graft from Leg, Left Updated: 09/29/24 1132 Sonicated Tissue/Implant Culture Methicillin Resistant Staphylococcus aureus Comment: isolated from broth culture. Susceptibilities previously reported. Tissue Culture, Aerobic Only [[id number]] (Abnormal) (Susceptibility) Collected: 09/27/24 1654 Lab Status: [...] is considered susceptible to doxycycline. Blood culture [[id number]] (Abnormal) Collected: 09/26/24 1845 Lab Status: Preliminary result Specimen: Blood, Venous Updated: 09/29/24 0719 Blood Culture Methicillin Resistant Staphylococcus aureus Comment: isolated. Susceptibilities previously reported. Gram Stain Aerobic Bottle: Gram positive cocci in clusters Blood culture [[id number]] (Abnormal) (Susceptibility) Collected: 09/26/24 1422 Lab Status: Preliminary result Specimen: Blood, Venous Updated: 09/29/24 0717 Blood Culture Methicillin Resistant Staphylococcus aureus Comment: detected by PCR Isolate saved. If future testing is required, contact the Microbiology Publications Manager. Gram Stain Aerobic Bottle: Gram positive cocci in clusters Susceptibility Methicillin Resistant Staphylococcus aureus VITEK 2 METHOD Clindamycin Resistant Gentamicin Susceptible [1] Linezolid Susceptible Oxacillin Resistant Trimethoprim/Sulfa Susceptible Vancomycin Susceptible [1] Gentamicin is not appropriate for monotherapy for gram-positive infections. Anaerobic Culture [[id number]] Collected: 09/27/24 1654 Lab Status: Preliminary result Specimen: Tissue from Thigh, Left Updated: 09/28/24 1355 Anaerobic Culture No anaerobic organisms isolated to date Abscess/Wound Aspirate Culture, Aerobic Only [[id number]] (Abnormal) (Susceptibility) Collected: 09/26/24 1702 Lab Status: [...] to doxycycline. Abscess/Wound Aspirate Culture, Aerobic Only [[id number]] (Abnormal) (Susceptibility) Collected: 09/26/241649 Lab Status: Preliminary [...] is considered susceptible to doxycycline. Fungus culture [[id number]] Collected: 09/27/241653 Lab Status: Preliminary result Specimen: Tissue from Thigh, Left Updated: 09/28/24 0748 Fungus Culture No fungus isolated to date MRSA PCR Screen [[id number]] (Abnormal) Collected: 09/27/24 0751 Lab Status: Final result Specimen: Swab from Nares Updated: 09/27/24 1156 MRSA PCR Detected Narrative: This test was performed using the Xpert MRSA NxG test kit and is run on the [employer] Alg GeneXpert Dx System. This test is cleared by the U.S. Food and Drug Administration for clinical use and its performance characteristics have been verified by the Clinical Genomics and [facility] Laboratory at [facility]. Anaerobic Culture [[id number]] Collected: 09/26/241649 Lab Status: Preliminary result Specimen: Abscess from Groin, Left Updated: 09/27/24 1142 Anaerobic Culture No anaerobic organisms isolated to date Anaerobic Culture [[id number]] Collected: 09/26/24 1702 Lab Status: Preliminary result Specimen: Abscess from Knee, Left Updated: 09/27/24 1142 Anaerobic Culture No anaerobic organisms isolated to date Fungus culture [[id number]] Collected: 09/26/241649 Lab Status: Preliminary result Specimen: Abscess from Groin, Left Updated: 09/27/24 0727 Fungus Culture No fungus isolated to date Fungus culture [[id number]] Collected: 09/26/24 1702 Lab Status: Preliminary result Specimen: Abscess from Knee, Left Updated: 09/27/24 07 Fungus Culture No fungus isolated to date New Studies Results for orders placed or performed during the hospital encounter of 09/26/24 Request For 2nd Read CT Lower Extremity (Exam End: 09/26/2024 1:50 PM) Result Value WORKSTATION ID [id number] Impression 1. There is a left femoral [...] please contact the health child day care center worker that requested your imaging first. Lower Extremity w Contrast Left (Exam End: 09/27/2024 9:16 AM) Result Value WORKSTATION ID [id number] Impression IMPRESSION: 1. Interval explant of LEFT [...] please contact the health child day care center worker that requested your imaging first. 09/28 ABIs [...] toe amputation who was transferred from [facility] given concern for infected left fem-BK [...] at proximal and distal anastomoses and a [place] drain placed from left groin to left thigh. The retained grafts have since been removed, with [place] drains in the L groin and thigh [...] Labs 09/28/24 1516 PHART 7.42 PO2ART 103 [id number] 39 LACTATEART 1.1 BEART 0.2 Is this [...] 1643 PHART 7.42 7.38 PO2ART 103 96 [id number] 39 41 LACTATEART 1.1 1.7 BEART 0.2 [...] Thank you, Renea Nunez, MS, RD, LD, [facility] Clinical Nutrition * Mariya Shi RN - [...] Diet CC Monitoring: Q4 Fawn Cunningham APRN [facility] Endocrinology Diabetes Management Pager [phone] Weekends please page [phone] 35 minutes were spent over the course [...] Labs 09/26/24 1643 PHART 7.38 PO2ART 96 [id number] 41 LACTATEART 1.7 BEART -1.4 Is this [...] toe amputation who was transferred from [facility] given concern for infected left fem-BK [...] smoking 1 week ago. He presented to [facility] on 09/26 and [...] Procedure Component Value - Date/Time Fungus culture [[id number]] Collected: 09/27/24 1654 Lab Status: Preliminary result Specimen: Tissue from Thigh, Left Updated: 09/28/24 0748 Fungus Culture No fungus isolated to date Blood culture [[id number]] (Abnormal) Collected: 09/26/24 1845 Lab Status: Preliminary result Specimen: Blood, Venous Updated: 09/28/24 0711 Blood Culture Methicillin Resistant Staphylococcus aureus Comment: isolated. Susceptibility testing in progress. Gram Stain Aerobic Bottle: Gram positive cocci in clusters AFB culture [[id number]] Collected: 09/26/24 170 Lab Status: Preliminary result Specimen: Abscess from Knee, Left Updated: 09/27/24 2335 Acid Fast Stain No acid fast bacilli seen Tissue Culture, Aerobic Only [[id number]] Collected: 09/27/24 165 Lab Status: Preliminary result Specimen: Tissue from Thigh, Left Updated: 09/27/24 1810 Gram Stain Few Neutrophils seen No microorganisms seen Abscess/Wound Aspirate Culture, Aerobic Only [[id number]] (Abnormal) Collected: 09/26/24 170 Lab Status: Preliminary result Specimen: Abscess from Knee, Left Updated: 09/27/24 1520 Abscess/Wound Aspirate Culture Many Staphylococcus aureus Gram Stain Many neutrophils Many Gram positive cocci Abscess/Wound Aspirate Culture, Aerobic Only [[id number]] (Abnormal) Collected: 09/26/241649 Lab Status: Preliminary result Specimen: Abscess from Groin, Left Updated: 09/27/24 1519 Abscess/Wound Aspirate Culture Many Staphylococcus aureus Gram Stain Many neutrophils Many Gram positive cocci Blood culture [[id number]] (Abnormal) Collected: 09/26/24 1422 Lab Status: Preliminary result Specimen: Blood, Venous Updated: 09/27/24 1320 Blood Culture Methicillin Resistant Staphylococcus aureus Comment: detected by PCR Gram Stain Aerobic Bottle: Gram positive cocci in clusters MRSA PCR Screen [[id number]] (Abnormal) Collected: 09/27/24 0751 Lab Status: Final result Specimen: Swab from Nares Updated: 09/27/24 1156 MRSA PCR Detected Narrative: This test was performed using the Xpert MRSA NxG test kit and is run on the [employer] GeneXAava Mobile Dx System. This test is cleared by the U.S. Food and Drug Administration for clinical use and its performance characteristics have been verified by the Clinical Genomics and [facility] at [facility]. Anaerobic Culture [[id number]] Collected: 09/26/24 165 Lab Status: Preliminary result Specimen: Abscess from Groin, Left Updated: 09/27/24 1142 Anaerobic Culture No anaerobic organisms isolated to date Anaerobic Culture [[id number]] Collected: 09/26/24 170 Lab Status: Preliminary result Specimen: Abscess from Knee, Left Updated: 09/27/24 1142 Anaerobic Culture No anaerobic organisms isolated to date Fungus culture [[id number]] Collected: 09/26/24 1650 Lab Status: Preliminary result Specimen: Abscess from Groin, Left Updated: 09/27/24726 Fungus Culture No fungus isolated to date Fungus culture [[id number]] Collected: 09/26/24 1702 Lab Status: Preliminary result Specimen: Abscess from Knee, Left Updated: 09/27/24726 Fungus Culture No fungus isolated to date New Studies Results for orders placed or performed during the hospital encounter of 09/26/24 Request For 2nd Read CT Lower Extremity (Exam End: 09/26/2024 1:50 PM) Result Value WORKSTATION ID [id number] Impression 1. There is a left femoral [...] please contact the health child day care center worker that requested your imaging first. Lower Extremity w Contrast Left (Exam End: 09/27/2024 9:16 AM) Result Value WORKSTATION ID [id number] Impression IMPRESSION: 1. Interval explant of LEFT [...] please contact the health child day care center worker that requested your imaging first. Assessment & Plan Geovanna Dixon Jr. is a 49 y.o. male with a history of HTN, HLD, NSTEMI, CAD s/p CABG (12/2011), DM,obesity, PAD s/p L iliofem endart and L fem-BK pop bypass and L 2nd toe amputation who was transferred from [facility] given concern for infected left fem-BK [...] Superior part of dressing taken down. [address] Abd pads with serosanguinous [...] Kita Hodge - 09/27/2024 3:58 PM EST Senior Business Analyst Encounter Note Patient Name: Geovanna Dixon Jr. : [id number] MR#: [id number] Admit Date: 09/26/2024 2:08 PM Hospital Day 1 day Narrative: [employer] Worker Helper initiated visit with patient during rounds on the unit. Patient indicated that he was not presybeterian. He reported that he was in less [...] Labs 09/26/24 1643 PHART 7.38 PO2ART 96 HAD6ESH 41 LACTATEART 1.7 BEART -1.4 Is this [...] toe amputation who was transferred from [facility] given concern for infected left fem-BK [...] smoking 1 week ago. He presented to [facility] on 09/26 and [...] toe amputation who was transferred from [facility] given concern for infected left fem-BK popliteal PTFE bypass. He is now s/p an explantof an infected left femoral-below knee popliteal artery bypass graft. Significant purulence under pr essure was seen intraoperatively, surrounding the entire bypass at proximal and distal anastomoses as well as the tunnel. There are retained grafts left at proximal and distal anastomoses, and a [place] drain placed from left groin to left [...] associated infection. The patient presented to [facility] ED on 09/26 for evaluation of [...] hemodynamically stable during his time at [facility] and was transported by ground to [facility] for vascular surgery [...] TOE, METATARSO-PHALANGEAL JOINT (WRVU 3.51) performed by Thnoy Garcia MD at [facility] MAIN OR PRO BYPASS GRAFT OTHR, FEM-TIBIAL Left 08/01/2024 @BYPASS GRAFT, FEM-ANT TIBIAL, -POST TIBIAL, -PERONEAL, -DP W\ SYNTHETIC CONDUIT (WRVU 23.66) performed by Lisette Maldonado MD at [facility] MAIN OR PRO CABG, ARTERY-VEIN, SINGLE 01/04/2012 @CABG, VENOUS & ARTERIAL GRAFT;SINGLE VEIN GRAFT performed by INNA TOVAR at [facility] MAIN OR PRO ENDOSCOPY W/VIDEO-ASST VEIN HARVEST, CABG 01/04/2012 ENDOSCOPIC HARVEST VEIN(S) FOR CABG performed by INNA TOVAR at [facility] MAIN OR VS ARTERIOGRAM LOWER EXTREMITY VASCULAR SURGERY 07/20/2024 VS Arteriogram Lower Extremity Vascular Surgery 07/20/2024 Anabel Finney MD [facility] INTERVENTIONL RAD Prior To Admission Medications: [...] 3 times daily. Use as instructed Indications: [id number] each 1 Past Week FreeStyle Lancets 28 [...] mellitus, whatver the most affordable version is for[employer] insurance 15 mL 1 Past Week insulin [...] 200 - 393 mg/dL Type and screen ([facility]/CGP/BABITA) Result Value Ref Range ABORH Type A POSITIVE PATIENT HISTORY Found Expires at 2359 on: 09/29/2024 ANTIBODY SCREEN AUTOMATED Negative T&S only valid at [facility] LAB CBC (with [...] 09/26/2024 1:50 PM) Result Value WORKSTATION ID [id number] Impression 1. There is a left femoral [...] please contact the health child day care center worker that requested your imaging first. Assessment/Plan: Geovanna [...] to the planned procedure. Hand Hygiene: The retail store associate did perform hand hygiene prior to line insertion. Catheter type: PICC Lot number: [id number] Procedure Technique: Skin was prepped with chlorhexidine. [...] to the planned procedure. Hand Hygiene: The retail store associate did perform hand hygiene prior to line insertion. Catheter type: PICC Lot number: [id number] Procedure Technique: Skin was prepped with chlorhexidine. [...] tomorrow afternoon. Home Vac: I have called [facility] Inventory and they they have now delivered the home ActiVac serial # [id number]. Pt reviewed the [facility] ActiVac Proof of Delivery/Assignment of Benefits (POD/AOB)form and signed it; she has copy of this and the [facility] Patient Copy letter along with the supplies, I will fax copy of the POD/AOB to [facility]. Needs for Transition of Care: Plan for discharge is: Home w/ Services Outpatient Agency/Support Group Needs: Homecare agency Outpatient IV Medications - IV Access: Access Ordered Location: Home, Referred to [facility] Coordination, Referred to Option Custodial Health Services: Occupational Therapy, Physical Therapy, Registered Nurse Agency Referrals & Follow-up Care: Contact information [place] [id number] [facility] [id number] Transportation: family or friend will provide Functional status prior to admission: Independent Home Environment: Others in the home: sibling(s), other (see comments) (lives with his sister delmy and brother in law). Current Living Arrangements: home/apartment/condo. Accessibility Concerns: . Current Functional Ability: Assistive Person and Equipment DME used at home: none Other DME Needs: Wound Vac Provider: [facility] Patient is insured through: Primary Insurance: [employer] MANAGED MEDICARE Payor: [employer] MA[employer]GED MEDICARE / Plan: [employer] MA[employer]ED MEDICARE PPO / Product Type: *No [...] Pain Flowsheets Taken 10/09/20242022 Pain Management Interventions: wgprpp-hvk-aasge dosing utilized care clustered diversional activity provided [...] the original note were not included. [facility] [place] [address] [facility] V[facility] Access Service Peripherally Inserted Central Catheter (PICC) Teaching Sheet Peripherally inserted central catheters (gtte-hb-kius) (PICC) are used when you need IV [...] midline catheter? PICC lines are used for residential treatments. PICC lines may be used for [...] can be set up via the nurse Ror Engineer to help you. What are possible [...] Efficacy, Safety, Use, and Administration of Cathflo, [employer] 2005 * Care Management - Cristina [...] Access: Access Ordered Location: Home, Referred to [facility] Coordination Home Health Services: Occupational Therapy, Physical Therapy, Registered Nurse- will remove PT, OT Agency Referrals: [facility] and [facility] for IV abx. [...] 9:00 AM EST OFFICE OF CARE MANAGEMENT Ror Engineer Follow-up Note Cristina Turner RN reviewed [...] medically ready. Current Referral in place: VNA: [facility] Wound vac ordered in [employer] for home wound vac and order emailed to: María for signature. Ror Engineer to follow with team and family [...] where referrals are placed. Request referral to [place], [place] for IV abx or . Expected date of discharge: 10/11. Patient will require teaching. Referral routed to the Straddle [employer] Operator for matching with agency/vendor and to provide [...] care clustered diversional activity provided position adjusted vmjnca-ssg-xokoe dosing utilized pain management plan reviewed with [...] have. Alternately, during off-hours you may call [phone] to contact a pharmacist. * Plan of Care - Jordyn Navas RN - 10/07/2024 7:21 PM EST OUTCOME EVALUATION NOTE: OUTCOME SUMMARY: [facility], Meds/Assessments as [...] PM EST PICC line placed today for residential ABX. Neurovascular checks unchanged. Good oral intake [...] from the original [place] [address] [facility] Vascular Access Service Peripherally Inserted Central Catheter (PICC) Teaching Sheet Peripherally inserted central catheters (tptw-lf-kiaj) (PICC) are used when you need IV [...] midline catheter? PICC lines are used for termination clerk treatments. PICC lines may be used for [...] can be set up via the nurse Ror Engineer to help you. What are possible [...] Vascular Access Device Selection, Insertion, and Management, [employer] Access Systems 08/12. A Review of the Efficacy, Safety, Use, and Administration of Cathflo, [employer] 2005 * Care Management - Vibha [...] No Patient is insured through: Primary Insurance: [employer] MANAGED MEDICARE Payor: [employer] MA[employer]ED MEDICARE / Plan: [employer] MA[employer]ED MEDICARE PPO / Product Type: *No [...] of Discharge: 10/10/2024 Vibha Wahl RN-BSN-CM Pager: [phone] * Consult Note - Stormy Muller [facility] - 10/06/2024 9:19 AM EST [facility] Pharmacokinetics Note Drug: Vancomycin Pharmacokinetic target: AUC24 (range) 400-600 mg/L.hr Current regimen: 1250 mg IV every 8 hours Geovanna Dixon is a(n) 49 years old male receiving Vancomycin 1250 mg IV every 8 hours for MRSA bacteremia/graft infection Recent measured serum creatinine values: 10/06/2024 00:03 0.85 mg/dL 10/04/2024 23:50 0.55 mg/dL 10/04/2024 00:08 0.56 mg/dL Assessment: Analysis of the most recent level(s) using [employer] gives the following patient-specific pharmacokinetic parameters: CL: [...] in a steady-state trough of 14.6 mg/L [id number] of 508 mg/L.hr. Recommendations: - SCr has [...] Meeks MD - 10/04/2024 5:01 PM EST [facility] Operative Note Patient Name: Geovanna Dixon Jr. : [id number] MR#: [id number] Case Date: 10/04/2024 Surgeon: Surgeons and Role: * Marko Dickson MD - Primary * Cristino Meeks MD - Resident - Assisting Preoperative diagnosis: Status post explant of infected left MACHINE MAINTENANCE-BK pop bypass graft Postoperative diagnosis: Status post explant of infected left MACHINE MAINTENANCE-BK pop bypass graft Procedure(s) (LRB): DEBRIDEMENT SKIN [...] toe amputation who was transferred from [facility] given concern for infected left fem-BK popliteal PTFE bypass. He is now s/p an explant of an infected left femoral-below knee popliteal artery bypass graft on 09/26 followed by I/D posterior thigh abscess on 09/27 then left GSV harvest, total explant of remaining PTFE then vein patch angioplasty of the left MACHINE MAINTENANCE and BK popliteal artery on 09/28 then [...] Note Patient Name: Geovanna Dixon Jr. : [id number] MR#: [id number] Case Date: 10/04/2024 Surgeon: Surgeons and Role: * Marko Dickson MD - Primary * Cristino Meeks MD - Resident - Assisting Preoperative diagnosis: Status post explant of infected left MACHINE MAINTENANCE-BK pop bypass graft Postoperative diagnosis: Status post explant of infected left MACHINE MAINTENANCE-BK pop bypass graft Procedure(s) (LRB): DEBRIDEMENT SKIN [...] No Patient is insured through: Primary Insurance: [employer] MANAGED MEDICARE Payor: [employer] MA[employer]GED MEDICARE / Plan: [employer] MA[employer]ED MEDICARE PPO / Product Type: *No [...] BIT to reengage please page BIT @ [phone] * Consult Note - Vangie Chandra [facility] - 10/04/2024 10:42 AM EST [facility] Pharmacokinetics Note Drug: Vancomycin Pharmacokinetic target: AUC24 (range) 400-600 mg/L.hr Current regimen: 1500 mg IV every 8 hours Geovanna Dixon is a(n) 49 years old male receiving Vancomycin 1500 mg IV every 8 hours for graft infection Recent measured serum creatinine values: 10/04/2024 00:08 0.56 mg/dL 10/03/2024 00:27 0.51 mg/dL 10/02/2024 00:41 0.49 mg/dL Assessment: Analysis of the most recent level(s) using [employer] gives the following patient-specific pharmacokinetic parameters: CL: [...] of Hospital-Acquired Illness or Injury 10/03/20241904 by aCthryn Hankins RN Outcome: Ongoing (Interventions Implemented as [...] 2nd toe amputationwho was transferred from [facility] given concern for infected left fem-BK popliteal PTFE bypass. He is now s/p an explant of an infected left femoral-below knee popliteal artery bypass graft (09/26), I/D groin abscess (09/27), L GSV harvest, vein patch angioplasty, L MACHINE MAINTENANCE and BK pop w/ sartorius flap L fem, I/D, 09/29 L sartorius flap revision, vac change. 10/03/24 NPO at [facility] for OR wound exploration. [...] performed by Thony Garcia MD at [facility] MAIN OR PRO BYPASS GRAFT OTHR, FEM-TIBIAL Left 08/01/2024 @BYPASS GRAFT, FEM-ANT TIBIAL, -POST TIBIAL, -PERONEAL, -DP W\ SYNTHETIC CONDUIT (WRVU 23.66) performed by Lisette Maldonado MD at [facility] MAIN OR PRO CABG, ARTERY-VEIN, SINGLE 01/04/2012 @CABG, VENOUS & ARTERIAL GRAFT;SINGLE VEIN GRAFT performed by INNA TOVAR at [facility] MAIN OR PRO DEBRIDEMENT MUSCLE AND FASCIA 20 SQ CM/< Left 09/29/2024 DEBRIDEMENT SKIN, SUBCU, MUSCLE, LOWER EXTREMITY (WRVU 2.7) performed by Anabel Finney MD at [facility] MAIN OR PRO DEBRIDEMENT MUSCLE AND FASCIA 20 SQ CM/< Left 10/02/2024 DEBRIDEMENT SKIN, SUBCU, MUSCLE, LOWER EXTREMITY (WRVU 2.7) performed by Hermila Mccormick MDat [facility] MAIN OR PRO DEBRIDEMENT SUBCUTANEOUS TISSUE 20 SQCM/< Left 09/27/2024 DEBRIDEMENT SKIN AND SUBCU, LOWER EXTREMITY (WRVU 1.01) performed by Hayley Torres MD at [facility] MAIN OR PRO DRAIN LOWER LEG DEEP ABSC/HEMATOMA Left 09/26/2024 INCISION & DRAINAGE, LEG OR ANKLE, DEEP ABSCESS OR HEMATOMA (WRVU 5.23) performed by Hayley Torres MD at [facility] OR PRO ENDOSCOPY W/VIDEO-ASST VEIN HARVEST, CABG 01/04/2012 ENDOSCOPIC HARVEST VEIN(S) FOR CABG performed by INNA TOVAR at [facility] MAIN OR PRO EXCISION, INFEC GRAFT, EXTREMITY Left 09/26/2024 EXCISION OF INFECTED GRAFT FROM LOWER EXTREMITY (WRVU 9.53) performed by Hayley Torres MD at [facility] MAIN OR PRO EXCISION, INFEC GRAFT, EXTREMITY Left 09/28/2024 EXCISION OF INFECTED GRAFT FROM LOWER EXTREMITY (WRVU 9.53) performed by Hayley Torres MD at [facility] MAIN OR PRO EXPLORATION NOT FOLLOWED BY SURG LOWER EXTREMITY ARTERY Left 09/29/2024 @EXPLORATION W\O SURGICAL REPAIR, FEMORAL ARTERY - JENNIFER (WRVU 7.5) performed by Anabel Finney MD at [facility] MAIN OR PRO FORM SKIN PEDICLE FLAP SCALP, ARM, LEG 09/28/2024 FLAP, PEDICLE,W OR W/O TRANSFER, LEGS (WRVU 10.12) performed by Hayley Torres MD at [facility] MAIN OR PRO I&D DEEP ABSCESS BURSA/HEMATOMA THIGH/KNEE REGION Left 09/26/2024 INCISION & DRAINAGE ABSCESS OR HEMATOMA, THIGH, KNEE SUPERFICIAL (WRVU 6.78) performed by Hayley Torres MD at [facility] MAIN OR PRO REVISION FEMORAL ANAST BPG GROIN OPEN W/NONAUTOG PATCH GRAFT Left 09/28/2024 REV. FEM. ANASTOMOSIS OF SYN. BYPASS GRAFT USING NONAUTOGENOUS PATCH ANGIOPLASTY-JENNIFER (WRVU 23.15) performed by Hayley Torres MD at [facility] MAIN OR PRO UNLISTED PROCEDURE VASCULAR SURGERY Left 09/28/2024 HARVEST SAPHENOUS VEIN (WRVU 13.24) performed by Hayley Torres MD at [facility] MAIN OR VS ARTERIOGRAM LOWER EXTREMITY VASCULAR SURGERY 07/20/2024 VS Arteriogram Lower Extremity Vascular Surgery 07/20/2024 Anabel Finney MD [facility] INTERVENTIONL RAD Social History: Patient lives [...] Pt issued and educated on use of straddle truck operator for straddle truck operator lower items. Self-feeding: Independent Grooming: Set [...] Discharge planning Total Minutes, Occupational Therapy: 35 ([id number]) OT Evaluation Code Rationale: Diagnosis & Pertinent Co-Morbidities affecting Plan of Care: see PMHx Occupational Profile & Client History: Brief Expanded Extensive x Assessment of Occupational Performance: 1-3 performance deficits 3-5 performance deficits x 5 + performance deficits Clinical Decision Making: Low Moderate High x Clinical decision making of low complexity using standardized patient assessment instrument and measurable assessment of functional outcome. Pager: [phone] Jorge Goetz OT 10/03/2024 Occupational Therapy Rehabilitation [...] Mccormick MD - 10/02/2024 2:06 PM EST [facility] Operative Note Patient Name: Geovanna Dixon Jr. : [id number] MR#: [id number] Case Date: 10/02/2024 Surgeon: Surgeons and Role: [...] toe amputation who was transferred from [facility] given concern for infected left fem-BK [...] the groin, we then attached a 15 Egyptian Jose drain to the Yung drain, and remove the Yung drain, replacing it with the 15 Egyptian Jose drain. In a similar way we [...] through: Primary Insurance: [employer] MANAGED MEDICARE Payor: [employer] MANAGED MEDICARE / Plan: [employer] MANAGED MEDICARE PPO / Product Type: *No Product type* / Secondary Insurance: N/A Plan for discharge is: Pending Hospital Course and PT/OT Recommendations Outpatient Agency/Support Group Needs: None Home Health Services: Occupational Therapy, Physical Therapy, Registered Nurse Agency Referrals: [facility]. [address] [place] [address] Transportation: family or friend will provide Barriers to discharge: Global: Denies needs/concerns at this time Plan: Patient is not medically ready related to: patient is going to the OR today for a washout andremains on blowout precautions. Plan going forward is: when able patient will need to work with PT/OT Anticipated Date of Discharge: 10/10/2024 Penny ROSAS, RN CM Phone: [phone] Pager: [phone] * Plan of Care - Heidi Mobley [...] Consult Note - Katelyn Oconnor [facility] - 09/30/2024 7:43 AM EST [facility] Pharmacokinetics Note Drug: Vancomycin Pharmacokinetic target: AUC24 (range) 400-600 mg/L.hr Current regimen: 1500 mg IV every 8 hours Geovanna Dixon is a(n) 49 years old male receiving Vancomycin 1500 mg IV every 8 hours for bacteremia Recent measured serum creatinine values: 09/29/2024 23:52 0.48 mg/dL 09/28/2024 23:51 0.52 mg/dL 09/27/2024 23:58 0.48 mg/dL Assessment: Analysis of the most recent level(s) using [employer] gives the following patient-specific pharmacokinetic parameters: CL: [...] Finney MD - 09/29/2024 2:41 PM EST [facility] Operative Note Patient Name: Geovanna Dixon Jr. : [id number] MR#: [id number] Case Date: 09/29/2024 Surgeon: Surgeons and Role: [...] toe amputation who was transferred from [facility] given concern for infected left fem-BK [...] mobilized and explored. The area around the MACHINE MAINTENANCE was irrigated copiously. The flap was then [...] Therapy, Physical Therapy, Registered Nurse Agency Referrals: [facility] [address] [place] [address] Transportation: family or friend will provide Barriers [...] Discharge: 10/04/2024 Penny ROSAS RN CM Phone: [phone] Pager: [phone] * Consult Note - Rose Wright APRN [...] toe amputation who was transferred from [facility] given concern for infected left fem-BK [...] smoking 1 week ago. He presented to [facility] on 09/26 and [...] Procedure Component Value - Date/Time Blood culture [[id number]] (Abnormal) Collected: 09/27/242132 Lab Status: Preliminary result Specimen: Blood, Venous Updated: 09/29/24 0721 Blood Culture Methicillin Resistant Staphylococcus aureus Gram Stain Aerobic Bottle: Gram positive cocci in clusters Blood culture [[id number]] (Abnormal) Collected: 09/26/24 1845 Lab Status: Preliminary result Specimen: Blood, Venous Updated: 09/29/24 0719 Blood Culture Methicillin Resistant Staphylococcus aureus Comment: isolated. Susceptibilities previously reported. Gram Stain Aerobic Bottle: Gram positive cocci in clusters Blood culture [[id number]] (Abnormal) (Susceptibility) Collected: 09/26/24 1422 Lab Status: Preliminary result Specimen: Blood, Venous Updated: 09/29/24 0717 Blood Culture Methicillin Resistant Staphylococcus aureus Comment: detected by PCR Isolate saved. If future testing is required, contact the Microbiology Publications Manager. Gram Stain Aerobic Bottle: Gram positive cocci in clusters Susceptibility Methicillin Resistant Staphylococcus aureus VITEK 2 METHOD Clindamycin Resistant Gentamicin Susceptible [1] Linezolid Susceptible Oxacillin Resistant Trimethoprim/Sulfa Susceptible Vancomycin Susceptible [1] Gentamicin is not appropriate for monotherapy for gram-positive infections. AFB culture [[id number]] Collected: 09/27/24 165 Lab Status: Preliminary result Specimen: Tissue from Thigh, Left Updated: 09/28/24 2226 Acid Fast Stain No acid fast bacilli seen Anaerobic Culture [[id number]] Collected: 09/27/24 165 Lab Status: Preliminary result Specimen: Tissue from Thigh, Left Updated: 09/28/24 1355 Anaerobic Culture No anaerobic organisms isolated to date Sonicated Tissue/Implant Culture [[id number]] Collected: 09/26/24 1716 Lab Status: Preliminary result Specimen: Vascular Graft from Leg, Left Updated: 09/28/24 1323 Sonicated Tissue/Implant Culture Culture in progress Tissue Culture, Aerobic Only [[id number]] (Abnormal) Collected: 09/27/24 1654 Lab Status: Preliminary result Specimen: Tissue from Thigh, Left Updated: 09/28/24 1049 Tissue Culture Rare Staphylococcus aureus Gram Stain Few Neutrophils seen No microorganisms seen Abscess/Wound Aspirate Culture, Aerobic Only [[id number]] (Abnormal) (Susceptibility) Collected: 09/26/24 1702 Lab Status: [...] to doxycycline. Abscess/Wound Aspirate Culture, Aerobic Only [[id number]] (Abnormal) (Susceptibility) Collected: 09/26/241649 Lab Status: Preliminary [...] is considered susceptible to doxycycline. Fungus culture [[id number]] Collected: 09/27/241653 Lab Status: Preliminary result Specimen: Tissue from Thigh, Left Updated: 09/28/24 0748 Fungus Culture No fungus isolated to date AFB culture [[id number]] Collected: 09/26/241701 Lab Status: Preliminary result Specimen: Abscess from Knee, Left Updated: 09/27/24 2335 Acid Fast Stain No acid fast bacilli seen MRSA PCR Screen [[id number]] (Abnormal) Collected: 09/27/24 0751 Lab Status: Final result Specimen: Swab from Nares Updated: 09/27/24 1156 MRSA PCR Detected Narrative: This test was performed using the Xpert MRSA NxG test kit and is run on the [employer] GeneXpert Dx System. This test is cleared by the U.S. Food and Drug Administration for clinical use and its performance characteristics have been verified by the [facility] at [facility]. Anaerobic Culture [[id number]] Collected: 09/26/241649 Lab Status: Preliminary result Specimen: Abscess from Groin, Left Updated: 09/27/24 1142 Anaerobic Culture No anaerobic organisms isolated to date Anaerobic Culture [[id number]] Collected: 09/26/24 170 Lab Status: Preliminary result Specimen: Abscess from Knee, Left Updated: 09/27/24 1142 Anaerobic Culture No anaerobic organisms isolated to date Fungus culture [[id number]] Collected: 09/26/24 1650 Lab Status: Preliminary result Specimen: Abscess from Groin, Left Updated: 09/27/24726 Fungus Culture No fungus isolated to date Fungus culture [[id number]] Collected: 09/26/24 1702 Lab Status: Preliminary result Specimen: Abscess from Knee, Left Updated: 09/27/24726 Fungus Culture No fungus isolated to date New Studies Results for orders placed or performed during the hospital encounter of 09/26/24 Request For 2nd Read CT Lower Extremity (Exam End: 09/26/2024 1:50 PM) Result Value WORKSTATION ID [id number] Impression 1. There is a left femoral [...] please contact the health child day care center worker that requested your imaging first. Lower Extremity w Contrast Left (Exam End: 09/27/2024 9:16 AM) Result Value WORKSTATION ID [id number] Impression IMPRESSION: 1. Interval explant of LEFT [...] please contact the health child day care center worker that requested your imaging first. 09/28 ABIs [...] toe amputation who was transferred from [facility] given concern for infected left fem-BK [...] at proximal and distal anastomoses and a [place] drain placed from left groin to left [...] Torres MD - 09/28/2024 12:23 PM EST [facility] Operative Note Patient Name: Geovanna Dixon Jr. : [id number] MR#: [id number] Case Date: 09/28/2024 Surgeon: Surgeons and Role: [...] pericardial patch and PTFE willard over the MACHINE MAINTENANCE was unincorporated. - Resection of prior femoral [...] Destination 1 : Left femoral proximal graft Hoisting Machine Operator Leg, Left SURGICAL PATHOLOGY Hayley Torres MD 09/28/2024 1410 2 : Left distal BK pop graft Hoisting Machine Operator Leg, Left SURGICAL PATHOLOGY Hayley [...] Indications: 49M with history of a left MACHINE MAINTENANCE-BK popliteal artery bypass with PTFE performed in [...] solution. Systemic heparin was administered. Next, the MACHINE MAINTENANCE, SFA, and DFA were clamped. An 11-blade scalpel was used to excise the PTFE graft willard and the prior bovine pericardial patch, and all prior Prolene sutures were removed. Residual plaque in the arterial lumen was removed using a [place] elevator. The harvested vein patch was cut [...] the midline with division of the first new vehicle sales consultant, such that the sartorius muscle [...] prior bypass graft were irrigated below the [place] drains. Significant thrombus burden was expelled in [...] Torres MD - 09/28/2024 12:23 PM EST [facility] Operative Note Patient Name: Geovanna Dixon Jr. : [id number] MR#: [id number] Case Date: 09/28/2024 Surgeon: Surgeons and Role: [...] - Prior bovine pericardial patch over the MACHINE MAINTENANCE was unincorporated. - Resection of prior femoral [...] Consult Note - Tea Nguyen, [facility] - 09/28/2024 9:23 AM EST Drug: Vancomycin [...] Analysis of the most recent level(s) using [employer] gives the following patient-specific pharmacokinetic parameters: CL: [...] Note Patient Name: Geovanna Dixon Jr. : [id number] MR#: [id number] Case Date: 09/27/2024 Surgeon: Surgeons and Role: [...] Torres MD - 09/27/2024 4:27 PM EST [facility] Operative Note Patient Name: Geovanna Dixon Jr. : [id number] MR#: [id number] Case Date: 09/26/2024 Surgeon: Surgeons and Role: [...] distal anastomoses with Prolene tag on latter. [place] drain placed from left groin to left [...] HPI/Surgical Indications: 49M with history of left MACHINE MAINTENANCE-BK popliteal artery bypass graft with PTFE (July [...] Torres MD - 09/27/2024 4:27 PM EST [facility] Operative Note Patient Name: Geovanna Dixon Jr. : [id number] MR#: [id number] Case Date: 09/27/2024 Surgeon: Surgeons and Role: [...] toe amputation who was transferred from [facility] given concern for infected left fem-BK [...] smoking 1 week ago. He presented to [facility] on 09/26 and [...] management and to provide a review of termination clerk diabetes care. Glargine 25 units administered this [...] outpatient diabetes regimen: Diabetes Provider: PCP in [facility] Medications: Lantus 50 units, lispro [...] Cunningham APRN Endocrinology Diabetes Management Service Pager: [phone] Weekends please page [phone] 80 minute visit was spent in counseling [...] receiving care in [place] must abide by [place] law. The hierarchy [...] (i) The agent with financial power of grounds supervisor or a conservator appointed in accordance with [...] In the past 12 months has the [employer], gas, oil, or water [employer] threatened to shut off services in your [...] Home Address confirmed as: [address] [address] Social & Family Supports: All names listed [...] his home before. Health/Prescription Coverage: Primary Insurance: [employer] MANAGED MEDICARE Payor: [employer] MANAGED MEDICARE / Plan: [facility] PPO / Product Type: *No Product type* / Secondary Insurance: N/A ; Prescription Coverage: Yes Preferred Pharmacy: [facility] - [place], [place] - [address] [facility] [address] [facility] [address] [facility] [address] - [place], [place] - [address] [address] [place], [place] - [address] [place] [address] [address] [facility] [address] [facility] [address] [place] Status: Patient is a : No Primary Care Provider confirmed: JUSTIN Roberson [phone] Patient/Caregiver Goals of Treatment: patient will need [...] where referrals are placed. Provided patient with [facility] Star Quality Rating handout. They have requested referrals to: [facility] [employer]. [address] [place] [address] Expected date of discharge: TBD Referral routed to the Straddle Truck Operator for matching with agency/vendor and to provide [...] care as indicated. Penny ROSAS, RN Phone: [phone] Pager: [phone] * Consult Note - Stacey Thomas MD [...] aching prompting him to go to [facility]. The groin pain dissipated. About a week later on 09/26 he developed left-sided groin pain prompting him to go to [facility] once again. Lab work notable for WBC count of 21, lactic acid 3.6. He underwent evaluation with a CT scan demonstrating an abscess from the left groin operative site the entire left of the graft down by the knee. He was transferred to [facility] for further care and he was initiated [...] performed by Thony Garcia MD at [facility] MAIN OR PRO BYPASS GRAFT OTHR, FEM-TIBIAL Left 08/01/2024 @BYPASS GRAFT, FEM-ANT TIBIAL, -POST TIBIAL, -PERONEAL, -DP W\ SYNTHETIC CONDUIT (WRVU 23.66) performed by Lisette Maldonado MD at [facility] MAIN OR PRO CABG, ARTERY-VEIN, SINGLE 01/04/2012 @CABG, VENOUS & ARTERIAL GRAFT;SINGLE VEIN GRAFT performed by INNA TOVAR at [facility] MAIN OR PRO ENDOSCOPY W/VIDEO-ASST VEIN HARVEST, CABG 01/04/2012 ENDOSCOPIC HARVEST VEIN(S) FOR CABG performed by INNA TOVAR at [facility] MAIN OR VS ARTERIOGRAM LOWER EXTREMITY VASCULAR SURGERY 07/20/2024 VS Arteriogram Lower Extremity Vascular Surgery 07/20/2024 Anabel Finney MD [facility] INTERVENTIONL RAD Medications: potassium chloride ER [...] Continuous Infusions: lactated Ringers 100 mL/hr (09/27/24 8444) sodium chloride 0.9% PRN Meds:.potassium chloride ER [...] to SICU as a transfer from [facility] for suspected graft infection/sepsis. A/Ox4, able [...] Torres MD - 09/26/2024 4:50 PM EST [facility] Operative Note Patient Name: Geovanna Dixon Jr. : [id number] MR#: [id number] Case Date: 09/26/2024 Surgeon: Surgeons and Role: * Hayley Torres MD - Primary * Dolly Dan MD - Resident - Assisting * Ken Moeller MD - Resident - Assisting Preoperative diagnosis: left infected femoral to below knee bypass graft Postoperative diagnosis: left infected femoral to below knee bypass graft Procedure: Explant of infected LEFT MACHINE MAINTENANCE to below-knee popliteal artery PTFE bypass graft [...] Indications: 49M with history of a left MACHINE MAINTENANCE-BK popliteal artery bypass with PTFE performed in [...] toe amputation who was transferred from [facility] given concern for infected left fem-BK [...] performed by Thony Garcia MD at [facility] MAIN OR PRO BYPASS GRAFT OTHR, FEM-TIBIAL Left 08/01/2024 @BYPASS GRAFT, FEM-ANT TIBIAL, -POST TIBIAL, -PERONEAL, -DP W\ SYNTHETIC CONDUIT (WRVU 23.66) performed by Lisette Maldonado MD at [facility] MAIN OR PRO CABG, ARTERY-VEIN, SINGLE 01/04/2012 @CABG, VENOUS & ARTERIAL GRAFT;SINGLE VEIN GRAFT performed by INNA TOVAR at [facility] MAIN OR PRO ENDOSCOPY W/VIDEO-ASST VEIN HARVEST, CABG 01/04/2012 ENDOSCOPIC HARVEST VEIN(S) FOR CABG performed by INNA TOVAR at [facility] MAIN OR VS ARTERIOGRAM LOWER EXTREMITY VASCULAR SURGERY 07/20/2024 VS Arteriogram Lower Extremity Vascular Surgery 07/20/2024 Anabel Finney MD [facility] INTERVENTIONL RAD Social Hx: Social History [...] 3 times daily. Use as instructed Indications: [id number] each 1 FreeStyle Lancets 28 gauge Misc [...] toe amputation who was transferred from [facility] given concern for infected left fem-BK [...] PM EST Office [place] [address] Isabela Hayward APRN [facility] [place] [address] 11/10/2024 10:00 AM EST Office [place] [address] Dai Whitman, [facility] 11/21/2024 2:15 PM EST Office [place] [address] Dayanara Grover MD [facility] [place] [address] Pending Results Name Type Priority Associated Diagnoses [...] EST I&D Deep Abscess Bursa/Hematoma Thigh/Knee Region (69385) 09/27/2024 3:45 PM EST Infected explanted left leg bypass graft Drain Lower Leg Deep Absc/Hematoma (54150) 09/27/2024 3:45 PM EST Infected explanted left leg bypass graft Excision, Infec Graft, Extremity (60832) 09/27/2024 3:45 PM EST Infected explanted left leg bypass graft Debridement, Skin, Sub-Q Tissue (50031) 09/27/2024 3:45 PM EST Infected explanted left [...] Non-fasting (10/16/2024) Glucose Lvl - External 124(H) [facility] Blood Urea Nitrogen - External 17 [facility] Creatinine - External 0.9 [facility] EGFR - External 104.05 [facility] Anion Gap - External 11.6(H) [facility] Sodium - External 141 [facility] Potassium - External 4.3 [facility] Chloride - External 103 [facility] CO2 - External 26.4 [facility] Calcium - External 9.0 [facility] Protein, Total - External 6.9 [facility] Albumin - External 3.0(L) [facility] Total Bilirubin - External 0.20 [facility] Alk Phos - External 124(H) [facility] AST (SGOT) - External 12 [facility] ALT (SGPT) - External 22 [facility] Blood VENOUS BLOOD SPECIMEN / Unknown 10/16/2024 Amaya Hernandez MD CHEMISTRY ORDERABLES [place] [id number] [facility] [address] [phone] * CK (10/16/2024) CK, Total - External 39 [facility] Blood VENOUS BLOOD SPECIMEN / Unknown 10/16/2024 Amaya Hernandez MD CHEMISTRY ORDERABLES [place] [address] [facility] [place] [address] [phone] * (ABNORMAL) CBC (with Diff) (10/16/2024) WBC - External 10.99(H) [facility] RBC - External 3.71(L) [facility] Hemoglobin - External 10.8(L) [facility] Hematocrit - External 33.8(L) [facility] MCV - External 91 [facility] MCH - External 29.1 [facility] MCHC - External 32.0 [facility] RDWCV - External 14.2(H) [facility] Platelets - External 512(H) [facility] MPV - External 9.8 [facility] NRBC % - External 0.0 [facility] NRBC Abs - External 0.0 [facility] Neutrophils % - External 64.2 [facility] Lymphocytes % - External 25.8 [facility] Monocytes % - External 6.8 [facility] Eosinophils % - External 2.0 [facility] Basophils % - External 0.9 [facility] Immature Gran % - External 0.3 [facility] Neutr ABS (ANC) - External 7.06(H) [facility] Lymphocyte ABS - External 2.84 [facility] Monocyte ABS - External 0.75 [facility] Eosinophil ABS - External 0.22 [facility] Basophil ABS - External 0.10 [facility] Blood VENOUS BLOOD SPECIMEN / Unknown 10/16/2024 Amaya Hernandez MD HEMATOLOGY ORDERABLE S [address] [place], [place] [address] [phone] * POC, GLUCOSE (10/10/2024 4:27 PM EST) Glucometer, POC 172 65 - 199 mg/dL 10/10/2024 4:27 PM EST [facility] Comment:Supplemental ranges: <140 mg/dL before meals <180 mg/dL all other times of the day. Blood CAPILLARY BLOOD / Unknown 10/10/2024 4:27 PM EST 10/10/2024 4:27 PM EST Hayley Torres MD POINT OF CARE TEST O GILDA [facility] [place] [address] * POC, GLUCOSE (10/10/2024 11:10 AM EST) Glucometer, POC 174 65 - 199 mg/dL 10/10/2024 11:11 AM EST [facility] Comment:Supplemental ranges: <140 mg/dL before meals <180 mg/dL all other times of the day. Blood CAPILLARY BLOOD / Unknown 10/10/2024 11:10 AM EST 10/10/2024 11:11 AM EST Hayley Torres MD POINT OF CARE TEST O GILDA Performing Organization Address City/[facility]/ZIP Co de Phone Number [facility] [address] * POC, GLUCOSE (10/10/2024 7:46 AM EST) Glucometer, POC 141 65 - 199 mg/dL 10/10/2024 7:46 AM EST [facility] Comment:Supplemental ranges: <140 mg/dL before meals <180 mg/dL all other times of the day. Blood CAPILLARY BLOOD / Unknown 10/10/2024 7:46 AM EST 10/10/2024 7:46 AM EST Hayley Torres MD POINT OF CARE TEST O GILDA [facility] [place] [address] * POC, GLUCOSE (10/10/2024 6:11 AM EST) Glucometer, POC 127 65 - 199 mg/dL 10/10/2024 6:11 AM EST [facility] Comment:Supplemental ranges: <140 mg/dL before meals <180 mg/dL all other times of the day. Blood CAPILLARY BLOOD / Unknown 10/10/2024 6:11 AM EST 10/10/2024 6:11 AM EST Hayley Torres MD POINT OF CARE TEST O RDERABLES [facility] [place] [address] * CK (10/10/2024 12:33 AM EST) [facility] Creatine Kinase 32 0 - 200 unit/L 10/10/2024 8:54 AM [facility] Blood VENOUS BLOOD SPECIMEN / Unknown Venipuncture / Unknown 10/10/2024 12:33 AM EST 10/10/2024 12:43 AM EST María Carranza APRN CHEMISTRY ORDER RANDELL Performing Organization Address City/[facility]/ZIP Co de Phone Number [facility] [place] [address] * (ABNORMAL) CBC (with Diff) (10/10/2024 12:33 AM EST) [facility] White Blood Cell 11.57(H) 4.00 - 9.50 [...] EST Hayley Torres MD HEMATOLOGY ORDERABLE S [facility] [place] [address] * (ABNORMAL) Basic Metabolic Panel (10/10/2024 12:33 [...] - 5.0 mMol/L 10/10/2024 1:12 AM EST [facility] Chloride 103 98 - 107 [...] - 10.5 mg/dL 10/10/2024 1:12 AM EST [facility] Est Glomerular Filtration Rate - [...] AM EST Hayley Torres MD CHEMISTRY ORDERABLES [facility] [place] [address] * Phosphorus (10/10/2024 12:33 AM EST) Phosphorus 3.8 2.5 - 4.5 mg/dL 10/10/2024 1:12 AM [facility] Blood VENOUS BLOOD SPECIMEN / Unknown Venipuncture / Unknown 10/10/2024 12:33 AM EST 10/10/2024 12:43 AM EST Hayley Torres MD CHEMISTRY ORDERABLES Performing Organization Address City/[facility] Co de Phone Number [facility] [place] [address] * Magnesium (10/10/2024 12:33 AM EST) Magnesium 0.81 0.69 - 1.07 mMol/L 10/10/2024 1:12 AM EST [facility] Blood VENOUS BLOOD SPECIMEN / Unknown Venipuncture / Unknown 10/10/2024 12:33 AM EST 10/10/2024 12:43 AM EST Hayley Torres MD CHEMISTRY ORDERABLES Performing Organization Address [facility] Co de Phone Number [facility] [place] [address] * POC, GLUCOSE (10/10/2024 12:31 AM EST) Glucometer, POC 119 65 - 199 mg/dL 10/10/2024 12:32 AM EST [facility] Comment:Supplemental ranges: <140 mg/dL before meals <180 mg/dL all other times of the day. Blood CAPILLARY BLOOD / Unknown 10/10/2024 12:31 AM EST 10/10/2024 12:32 AM EST Hayley Torres MD POINT OF CARE TEST O RDERABLES Performing Organization Address [facility] Co de Phone Number [facility] [place] [address] * POC, GLUCOSE (10/09/2024 8:16 PM EST) Glucometer, POC 104 65 - 199 mg/dL 10/09/2024 8:16 PM EST [facility] Comment:Supplemental ranges: <140 mg/dL before meals <180 mg/dL all other times of the day. Blood CAPILLARY BLOOD / Unknown 10/09/2024 8:16 PM EST 10/09/2024 8:16 PM EST Hayley Torres MD POINT OF CARE TEST O RDERAHERNANDEZ Performing Organization Address [facility] Co de Phone Number [facility] [place] [address] * POC, GLUCOSE (10/09/2024 3:57 PM EST) Glucometer, POC 120 65 - 199 mg/dL 10/09/2024 3:57 PM EST [facility] Comment:Supplemental ranges: <140 mg/dL before meals <180 mg/dL all other times of the day. Blood CAPILLARY BLOOD / Unknown 10/09/2024 3:57 PM EST 10/09/2024 3:57 PM EST Hayley Torres MD POINT OF CARE TEST O GILDA Performing Organization Address [facility] Co de Phone Number [facility] [place] [address] * Place PICC Line: Contact Vascular Access Page [phone] Extremity to exclude: No restrictions; Is PICC [...] to the planned procedure. Hand Hygiene: The retail store associate did perform hand hygiene prior to line insertion. Catheter type: PICC Lot number: [id number] Procedure Technique: Skin was prepped with chlorhexidine. [...] Guidance (IV Team) (10/09/2024 1:55 PM EST) [place] WORKSTATION ID [id number] RAD Anatomical Region Laterality Modality N/A Radio [...] please contact the health child day care center worker that requested your imaging first. ? Narrative [...] questions please contactthe health child day care center worker that requested your imaging first. María Carranza APRN IMG FRANCHESKA [facility] * POC, GLUCOSE (10/09/2024 11:40 AM EST) [facility] Glucometer, POC 180 65 - 199 mg/dL 10/09/2024 11:40 AM EST [facility] Comment:Supplemental ranges: <140 mg/dL before meals <180 mg/dL all other times of the day. Blood CAPILLARY BLOOD / Unknown 10/09/2024 11:40 AM EST 10/09/2024 11:41 AM EST Hayley Torres MD POINT OF CARE TEST O GILDA Performing Organization Address City/[facility]/ZIP Co de Phone Number [facility] [place] [address] * (ABNORMAL) POC, GLUCOSE (10/09/2024 7:35 AM EST) Glucometer, POC 215(H) 65 - 199 mg/dL 10/09/2024 7:36 AM EST [facility] Comment:Supplemental ranges: <140 mg/dL before meals <180 mg/dL all other times of the day. Blood CAPILLARY BLOOD / Unknown 10/09/2024 7:35 AM EST 10/09/2024 7:36 AM EST Hayley Torres MD POINT OF CARE TEST O GILDA Performing Organization Address [facility] Co de Phone Number [facility] [place] [address] * POC, GLUCOSE (10/09/2024 4:26 AM EST) Glucometer, POC 175 65 - 199 mg/dL 10/09/2024 4:26 AM EST [facility] Comment:Supplemental ranges: <140 mg/dL before meals <180 mg/dL all other times of the day. Blood CAPILLARY BLOOD / Unknown 10/09/2024 4:26 AM EST 10/09/2024 4:26 AM EST Hayley Torres MD POINT OF CARE TEST O GILDA Performing Organization Address City/[facility]/ZIP Co de Phone Number [facility] [place] [address] * (ABNORMAL) CBC (with Diff) (10/09/2024 12:45 AM [facility]) White Blood Cell 11.27(H) 4.00 - [...] EST Hayley Torres MD HEMATOLOGY ORDERABLE S [facility] [place] [address] * (ABNORMAL) Basic Metabolic Panel (10/09/2024 12:45 [...] Torres MD CHEMISTRY ORDERABLES Performing Organization Address City/[facility] Co de Phone Number [facility] [place] [address] * Phosphorus (10/09/2024 12:45 AM EST) Phosphorus 3.9 2.5 - 4.5 mg/dL 10/09/2024 1:54 AM EST [facility] Blood VENOUS BLOOD SPECIMEN / Unknown Venipuncture / Unknown 10/09/2024 12:45 AM EST 10/09/2024 1:27 AM EST Hayley Torres MD CHEMISTRY ORDERABLES Performing Organization Address [facility] Co de Phone Number [facility] [place] [address] * Magnesium (10/09/2024 12:45 AM EST) Magnesium 0.80 0.69 - 1.07 mMol/L 10/09/2024 1:54 AM EST [facility] Blood VENOUS BLOOD SPECIMEN / Unknown Venipuncture / Unknown 10/09/2024 12:45 AM EST 10/09/2024 1:27 AM EST Hayley Torres MD CHEMISTRY ORDERABLES Performing Organization Address City/[facility] Co de Phone Number [facility] [place] [address] * POC, GLUCOSE (10/09/2024 12:11 AM EST) Glucometer, POC 157 65 - 199 mg/dL 10/09/2024 12:11 AM EST [facility] Comment:Supplemental ranges: <140 mg/dL before meals <180 mg/dL all other times of the day. Blood CAPILLARY BLOOD / Unknown 10/09/2024 12:11 AM EST 10/09/2024 12:11 AM EST Hayley Torres MD POINT OF CARE TEST O RDTYESHA Performing Organization Address City/[facility]/ZIP Co de Phone Number [facility] [place] [address] * POC, GLUCOSE (10/08/2024 7:25 PM EST) Glucometer, POC 157 65 - 199 mg/dL 10/08/2024 7:25 PM EST [facility] Comment:Supplemental ranges: <140 mg/dL before meals <180 mg/dL all other times of the day. Blood CAPILLARY BLOOD / Unknown 10/08/2024 7:25 PM EST 10/08/2024 7:25 PM EST Hayley Torres MD POINT OF CARE TEST O GILDA Performing Organization Address [facility] Co de Phone Number [facility] [place] [address] * POC, GLUCOSE (10/08/2024 5:54 PM EST) Glucometer, POC 198 65 - 199 mg/dL 10/08/2024 5:54 PM EST [facility] Comment:Supplemental ranges: <140 mg/dL before meals <180 mg/dL all other times of the day. Blood CAPILLARY BLOOD / Unknown 10/08/2024 5:54 PM EST 10/08/2024 5:54 PM EST Hayley Torres MD POINT OF CARE TEST O GILDA Performing Organization Address City/[facility]/ZIP Co de Phone Number [facility] [place] [address] * (ABNORMAL) POC, GLUCOSE (10/08/2024 4:08 PM EST) Glucometer, POC 281(H) 65 - 199 mg/dL 10/08/2024 4:08 PM EST [facility] Comment:Supplemental ranges: <140 mg/dL before meals <180 mg/dL all other times of the day. Blood CAPILLARY BLOOD / Unknown 10/08/2024 4:08 PM EST 10/08/2024 4:09 PM EST Hayley Torres MD POINT OF CARE TEST O GILDA Performing Organization Address City/[facility]/ZIP Co de Phone Number [facility] [place] [address] * POC, GLUCOSE (10/08/2024 12:44 PM EST) Glucometer, POC 146 65 - 199 mg/dL 10/08/2024 12:44 PM EST [facility] Comment:Supplemental ranges: <140 mg/dL before meals <180 mg/dL all other times of the day. Blood CAPILLARY BLOOD / Unknown 10/08/2024 12:44 PM EST 10/08/2024 12:44 PM EST Hayley Torres MD POINT OF CARE TEST O GILDA Performing Organization Address [facility] Co de Phone Number [facility] [place] [address] * POC, GLUCOSE (10/08/2024 8:30 AM EST) Glucometer, POC 172 65 - 199 mg/dL 10/08/2024 8:30 AM EST [facility] Comment:Supplemental ranges: <140 mg/dL before meals <180 mg/dL all other times of the day. Blood CAPILLARY BLOOD / Unknown 10/08/2024 8:30 AM EST 10/08/2024 8:30 AM EST Hayley Torres MD POINT OF CARE TEST O GILDA [facility] [place] [address] * Vancomycin Level, Random (10/08/2024 5:59 AM EST) Vancomycin, Random 6.8 mg/L 2023 7:58 AM EST [facility] Comment:This level is for de termination of the patient's vancomycin xqmq-gekbw-xtu-curve (AUC) value. Contact the inpatient pharmacy for interpretation. Blood VENOUS BLOOD SPECIMEN / Unknown Venipuncture / Unknown 10/08/2024 5:59 AM EST 10/08/2024 7:29 AM EST Hayley Torres MD CHEMISTRY ORDERABLES Performing Organization Address City/[facility]/ZIP Co de Phone Number [facility] [place] [address] * POC, GLUCOSE (10/08/2024 4:02 AM EST) Glucometer, POC 163 65 - 199 mg/dL 10/08/2024 4:02 AM EST [facility] Comment:Supplemental ranges: <140 mg/dL before meals <180 mg/dL all other times of the day. Blood CAPILLARY BLOOD / Unknown 10/08/2024 4:02 AM EST 10/08/2024 4:02 AM EST Hayley Torres MD POINT OF CARE TEST O RDERABLES Performing Organization Address City/[facility]/ZIP Co de Phone Number [facility] [place] [address] * (ABNORMAL) CBC (with Diff) (10/08/2024 12:08 AM EST) White Blood Cell 10.35(H) 4.00 - 9.50 x10(3)/mc L 10/08/2024 12:29 AM EST [facility] Red Blood Cell 3.53(L) 4.58 - 5.54 x10(6)/mc L 10/08/2024 12:29 AM EST [facility] Hemoglobin 10.2(L) 13.7 - 16.5 g/dL 10/08/2024 12:29 AM EST [facility] Hematocrit 31.7(L) 40.5 - 48.5 [...] 0.90 x10(3)/mc L 10/08/2024 12:29 AM EST [facility] Eos % 1.7 % 10/08/2024 12:29 AM EST [facility] Eos Absolute 0.18 0.00 - 0.40 x10(3)/mc L 10/08/2024 12:29 AM EST [facility] Basophil % 1.0 % 10/08/2024 [...] HEMATOLOGY ORDERABLE S Performing Organization Address City/State/[facility] Co de Phone Number [facility] [place] [address] * (ABNORMAL) Basic Metabolic Panel (10/08/2024 12:08 [...] AM EST Hayley Torres MD CHEMISTRY ORDERABLES [facility] [place] [address] * Phosphorus (10/08/2024 12:08 AM EST) Phosphorus 3.4 2.5 - 4.5 mg/dL 10/08/2024 12:50 AM [facility] Blood VENOUS BLOOD SPECIMEN / Unknown Venipuncture / Unknown 10/08/2024 12:08 AM EST 10/08/2024 12:23 AM EST Hayley Torres MD CHEMISTRY ORDERABLES [facility] [place] [address] * Magnesium (10/08/2024 12:08 AM EST) Magnesium 0.85 0.69 - 1.07 mMol/L 10/08/2024 12:50 AM EST [facility] Blood VENOUS BLOOD SPECIMEN / Unknown Venipuncture / Unknown 10/08/2024 12:08 AM EST 10/08/2024 12:23 AM EST Hayley Torres MD CHEMISTRY ORDERABLES Performing Organization Address [facility] Co de Phone Number [facility] [place] [address] * CK (10/08/2024 12:08 AM EST) Creatine Kinase 24 0 - 200 unit/L 10/08/2024 12:50 AM EST [facility] Blood VENOUS BLOOD SPECIMEN / Unknown Venipuncture / Unknown 10/08/2024 12:08 AM EST 10/08/2024 12:23 AM EST Hayley Torres MD CHEMISTRY ORDERABLES Performing Organization Address [facility] Co de Phone Number [facility] [place] [place] [address] * POC, GLUCOSE (10/08/2024 12:05 AM EST) Glucometer, POC 100 65 - 199 mg/dL 10/08/2024 12:05 AM EST [facility] Comment:Supplemental ranges: <140 mg/dL before meals <180 mg/dL all other times of the day. Blood CAPILLARY BLOOD / Unknown 10/08/2024 12:05 AM EST 10/08/2024 12:05 AM EST Hayley Torres MD POINT OF CARE TEST O RDERABLES Performing Organization Address City/[facility] Co de Phone Number [facility] [place] [place] [address] * POC, GLUCOSE (10/07/2024 8:29 PM EST) Glucometer, POC 107 65 - 199 mg/dL 10/07/2024 8:30 PM EST [facility] Comment:Supplemental ranges: <140 mg/dL before meals <180 mg/dL all other times of the day. Blood CAPILLARY BLOOD / Unknown 10/07/2024 8:29 PM EST 10/07/2024 8:30 PM EST Hayley Torres MD POINT OF CARE TEST O RDERAHERNANDEZ Performing Organization Address [facility] de Phone Number [facility] [place] [address] * POC, GLUCOSE (10/07/2024 4:33 PM EST) Glucometer, POC 129 65 - 199 mg/dL 10/07/2024 4:33 PM EST [facility] Comment:Supplemental ranges: <140 mg/dL before meals <180 mg/dL all other times of the day. Blood CAPILLARY BLOOD / Unknown 10/07/2024 4:33 PM EST 10/07/2024 4:34 PM EST Hayley Torres MD POINT OF CARE TEST O RDERABLES Performing Organization Address [facility] Co de Phone Number [facility] [place] [address] * (ABNORMAL) POC, GLUCOSE (10/07/2024 10:58 AM EST) Glucometer, POC 221(H) 65 - 199 mg/dL 10/07/2024 10:59 AM EST [facility] Comment:Supplemental ranges: <140 mg/dL before meals <180 mg/dL all other times of the day. Blood CAPILLARY BLOOD / Unknown 10/07/2024 10:58 AM EST 10/07/2024 10:59 AM EST Hayley Torres MD POINT OF CARE TEST O GILDA Performing Organization Address [facility] Co de Phone Number [facility] [place] [address] * (ABNORMAL) POC, GLUCOSE (10/07/2024 7:42 AM EST) Glucometer, POC 201(H) 65 - 199 mg/dL 10/07/2024 7:42 AM EST [facility] Comment:Supplemental ranges: <140 mg/dL before meals <180 mg/dL all other times of the day. Blood CAPILLARY BLOOD / Unknown 10/07/2024 7:42 AM EST 10/07/2024 7:43 AM EST Hayley Torres MD POINT OF CARE TEST O GILDA Performing Organization Address [facility] de Phone Number [facility] [place] [address] * POC, GLUCOSE (10/07/2024 3:58 AM EST) Glucometer, POC 150 65 - 199 mg/dL 10/07/2024 3:58 AM EST [facility] Comment:Supplemental ranges: <140 mg/dL before meals <180 mg/dL all other times of the day. Blood CAPILLARY BLOOD / Unknown 10/07/2024 3:58 AM EST 10/07/2024 3:58 AM EST Hayley Torres MD POINT OF CARE TEST O GILDA Performing Organization Address [facility] Co de Phone Number [facility] [place] [address] * (ABNORMAL) CBC (with Diff) (10/07/2024 12:06 [...] EST Hayley Torres MD HEMATOLOGY ORDERABLE S [facility] [place] [address] * (ABNORMAL) Basic Metabolic Panel (10/07/2024 12:06 [...] AM EST Hayley Torres MD CHEMISTRY ORDERABLES [facility] [place] [address] * Phosphorus (10/07/2024 12:06 AM EST) Phosphorus 4.2 2.5 - 4.5 mg/dL 10/07/2024 12:40 AM EST [facility] Blood VENOUS BLOOD SPECIMEN / Unknown Venipuncture / Unknown 10/07/2024 12:06 AM EST 10/07/2024 12:11 AM EST Hayley Torres MD CHEMISTRY ORDERABLES Performing Organization Address City/[facility]/ZIP Co de Phone Number [facility] [place] [address] * Magnesium (10/07/2024 12:06 AM EST) Magnesium 0.85 0.69 - 1.07 mMol/L 10/07/2024 12:40 AM EST [facility] Blood VENOUS BLOOD SPECIMEN / Unknown Venipuncture / Unknown 10/07/2024 12:06 AM EST 10/07/2024 12:11 AM EST Hayley Torres MD CHEMISTRY ORDERABLES Performing Organization Address [facility] Co de Phone Number [facility] [place] [address] * POC, GLUCOSE (10/07/2024 12:04 AM EST) Glucometer, POC 149 65 - 199 mg/dL 10/07/2024 12:04 AM EST [facility] Comment:Supplemental ranges: <140 mg/dL before meals <180 mg/dL all other times of the day. Blood CAPILLARY BLOOD / Unknown 10/07/2024 12:04 AM EST 10/07/2024 12:05 AM EST Hayley Torres MD POINT OF CARE TEST O RDERABLES Performing Organization Address City/[facility]/ZIP Co de Phone Number [facility] [place] [address] * POC, GLUCOSE (10/06/2024 7:24 PM EST) Glucometer, POC 151 65 - 199 mg/dL 10/06/2024 7:24 PM EST [facility] Comment:Supplemental ranges: <140 mg/dL before meals <180 mg/dL all other times of the day. Blood CAPILLARY BLOOD / Unknown 10/06/2024 7:24 PM EST 10/06/2024 7:24 PM EST Hayley Torres MD POINT OF CARE TEST O GILDA Performing Organization Address [facility] Co de Phone Number [facility] [place] [address] * POC, GLUCOSE (10/06/2024 5:32 PM EST) Glucometer, POC 126 65 - 199 mg/dL 10/06/2024 5:32 PM EST [facility] Comment:Supplemental ranges: <140 mg/dL before meals <180 mg/dL all other times of the day. Blood CAPILLARY BLOOD / Unknown 10/06/2024 5:32 PM EST 10/06/2024 5:32 PM EST Hayley Torres MD POINT OF CARE TEST O GILDA Performing Organization Address City/[facility] Co de Phone Number [facility] [place] [address] * XR PICC Placement Over 5 Years with Imaging Guidance (IV Team) (10/06/2024 3:04 PM EST) WORKSTATION ID [id number] DH RAD Anatomical Region Laterality Modality N/A [...] please contact the health child day care center worker that requested your imaging first. ? Electronically signed by: Charles Hamilton MD, [facility] ??([phone]), at 10/06/2024 3:43 PM Narrative 10/06/2024 3:43 [...] questions please contactthe health child day care center worker that requested your imaging first. Electronically signed by: [facility] Hamilton [facility]([phone]), at 10/06/2024 3:43 PM Hayley Torres MD IMG FLUORO ORDERABLE S * Place PICC Line: Contact Vascular Access Page [phone] Extremity to exclude: No restrictions; Is PICC [...] to the planned procedure. Hand Hygiene: The retail store associate did perform hand hygiene prior to line insertion. Catheter type: PICC Lot number: [id number] Procedure Technique: Skin was prepped with chlorhexidine. [...] - 199 mg/dL 10/06/2024 12:12 PM EST [facility] Comment:Supplemental ranges: <140 mg/dL before meals <180 mg/dL all other times of the day. Blood CAPILLARY BLOOD / Unknown 10/06/2024 12:12 PM EST 10/06/2024 12:12 PM EST Hayley Torres MD POINT OF CARE TEST O DIMITRIERAHERNANDEZ Performing Organization Address [facility] Co de Phone Number [facility] [place] [address] * (ABNORMAL) POC, GLUCOSE (10/06/2024 7:34 AM EST) Glucometer, POC 209(H) 65 - 199 mg/dL 10/06/2024 7:34 AM EST [facility] Comment:Supplemental ranges: <140 mg/dL before meals <180 mg/dL all other times of the day. Blood CAPILLARY BLOOD / Unknown 10/06/2024 7:34 AM EST 10/06/2024 7:34 AM EST Hayley Torres MD POINT OF CARE TEST O RDERAHERNANDEZ [facility] [place] [place] [address] * POC, GLUCOSE (10/06/2024 3:29 AM EST) Glucometer, POC 151 65 - 199 mg/dL 10/06/2024 3:29 AM EST [facility] Comment:Supplemental ranges: <140 mg/dL before meals <180 mg/dL all other times of the day. Blood CAPILLARY BLOOD / Unknown 10/06/2024 3:29 AM EST 10/06/2024 3:29 AM EST Hayley Torres MD POINT OF CARE TEST O RDERABLES Performing Organization Address City/[facility]/ZIP Co de Phone Number [facility] [place] [address] * Vancomycin Level, Random (10/06/2024 12:03 AM EST) Pathologist [facility] Vancomycin, Random 20.5 mg/L 2023 9:00 AM EST [facility] Comment:This level is for de termination of the patient's vancomycin [id number]-[id number]-curve (AUC) value. Contact the inpatient pharmacy for interpretation. Blood VENOUS BLOOD SPECIMEN / Unknown Venipuncture / Unknown 10/06/2024 12:03 AM EST 10/06/2024 12:15 AM EST Hayley Torres MD CHEMISTRY ORDERABLES Performing Organization Address City/[facility]/ZIP Co de Phone Number [facility] [place] [address] * (ABNORMAL) CBC (with Diff) (10/06/2024 12:03 AM EST) Pathologist [facility] White Blood Cell 12.26(H) 4.00 - [...] % 1.3 % 10/06/2024 12:19 AM EST [facility] Eos Absolute 0.16 0.00 - [...] EST Hayley Torres MD HEMATOLOGY ORDERABLE S [facility] [place] [address] * Basic Metabolic Panel (10/06/2024 12:03 AM [...] - 107 mMol/L 10/06/2024 12:44 AM EST [facility] Carbon Dioxide 22 22 - [...] AM EST Hayley Torres MD CHEMISTRY ORDERABLES [facility] [place] [address] * Phosphorus (10/06/2024 12:03 AM EST) Phosphorus 4.3 2.5 - 4.5 mg/dL 10/06/2024 12:44 AM EST [facility] Blood VENOUS BLOOD SPECIMEN / Unknown Venipuncture / Unknown 10/06/2024 12:03 AM EST 10/06/2024 12:15 AM EST Hayley Torres MD CHEMISTRY ORDERABLES [facility] [place] [address] * Magnesium (10/06/2024 12:03 AM EST) Magnesium 0.83 0.69 - 1.07 mMol/L 10/06/2024 12:44 AM EST [facility] Blood VENOUS BLOOD SPECIMEN / Unknown Venipuncture / Unknown 10/06/2024 12:03 AM EST 10/06/2024 12:15 AM EST Hayley Torres MD CHEMISTRY ORDERABLES Performing Organization Address City/[facility]/ZIP Co de Phone Number [facility] [place] [address] * POC, GLUCOSE (10/06/2024 12:02 AM EST) Glucometer, POC 98 65 - 199 mg/dL 10/06/2024 12:02 AM EST [facility] Comment:Supplemental ranges: <140 mg/dL before meals <180 mg/dL all other times of the day. Blood CAPILLARY BLOOD / Unknown 10/06/2024 12:02 AM EST 10/06/2024 12:02 AM EST Hayley Torres MD POINT OF CARE TEST O RDERABLES Performing Organization Address [facility]/ZIP Co de Phone Number [facility] [place] [address] * POC, GLUCOSE (10/05/2024 7:22 PM EST) Glucometer, POC 186 65 - 199 mg/dL 10/05/2024 7:23 PM EST [facility] Comment:Supplemental ranges: <140 mg/dL before meals <180 mg/dL all other times of the day. Blood CAPILLARY BLOOD / Unknown 10/05/2024 7:22 PM EST 10/05/2024 7:23 PM EST Hayley Torres MD POINT OF CARE TEST O RDERABLES [facility] [place] [address] * POC, GLUCOSE (10/05/2024 5:35 PM EST) Glucometer, POC 177 65 - 199 mg/dL 10/05/2024 5:35 PM EST [facility] Comment:Supplemental ranges: <140 mg/dL before meals <180 mg/dL all other times of the day. Blood CAPILLARY BLOOD / Unknown 10/05/2024 5:35 PM EST 10/05/2024 5:35 PM EST Hayley Torres MD POINT OF CARE TEST O GILDA Performing Organization Address City/[facility]/ZIP Co de Phone Number [facility] [place] [address] * POC, GLUCOSE (10/05/2024 3:57 PM EST) Glucometer, POC 141 65 - 199 mg/dL 10/05/2024 3:57 PM EST [facility] Comment:Supplemental ranges: <140 mg/dL before meals <180 mg/dL all other times of the day. Blood CAPILLARY BLOOD / Unknown 10/05/2024 3:57 PM EST 10/05/2024 3:57 PM EST Hayley Torres MD POINT OF CARE TEST O GILDA Performing Organization Address City/[facility]/ZIP Co de Phone Number [facility] [place] [address] * POC, GLUCOSE (10/05/2024 11:50 AM EST) Glucometer, POC 134 65 - 199 mg/dL 10/05/2024 11:50 AM EST [facility] Comment:Supplemental ranges: <140 mg/dL before meals <180 mg/dL all other times of the day. Blood CAPILLARY BLOOD / Unknown 10/05/2024 11:50 AM EST 10/05/2024 11:50 AM EST Hayley Torres MD POINT OF CARE TEST O RDERAHERNANDEZ Performing Organization Address [facility] Co de Phone Number [facility] [place] [address] * POC, GLUCOSE (10/05/2024 7:51 AM EST) Glucometer, POC 114 65 - 199 mg/dL 10/05/2024 7:51 AM EST [facility] Comment:Supplemental ranges: <140 mg/dL before meals <180 mg/dL all other times of the day. Blood CAPILLARY BLOOD / Unknown 10/05/2024 7:51 AM EST 10/05/2024 7:51 AM EST Hayley Torres MD POINT OF CARE TEST O GILDA Performing Organization Address [facility] de Phone Number [facility] [place] [address] * POC, GLUCOSE (10/05/2024 4:18 AM EST) Glucometer, POC 147 65 - 199 mg/dL 10/05/2024 4:18 AM EST [facility] Comment:Supplemental ranges: <140 mg/dL before meals <180 mg/dL all other times of the day. Blood CAPILLARY BLOOD / Unknown 10/05/2024 4:18 AM EST 10/05/2024 4:18 AM EST Hayley Torres MD POINT OF CARE TEST O GILDA Performing Organization Address City/[facility] Co de Phone Number [facility] [place] [address] * (ABNORMAL) CBC (with Diff) (10/04/2024 11:50 PM EST) White Blood Cell 12.73(H) 4.00 - 9.50 x10(3)/mc L 10/05/2024 12:10 AM EST [facility] Red Blood Cell 3.45(L) 4.58 [...] EST Hayley Torres MD HEMATOLOGY ORDERABLE S [facility] [place] [address] * (ABNORMAL) Basic Metabolic Panel (10/04/2024 11:50 [...] AM EST Hayley Torres MD CHEMISTRY ORDERABLES [facility] [place] [address] * Phosphorus (10/04/2024 11:50 PM EST) Phosphorus 4.2 2.5 - 4.5 mg/dL 10/05/2024 12:35 AM EST [facility] Blood VENOUS BLOOD SPECIMEN / Unknown Venipuncture / Unknown 10/04/2024 11:50 PM EST 10/05/2024 12:03 AM EST Hayley Torres MD CHEMISTRY ORDERABLES [facility] [place] [address] * Magnesium (10/04/2024 11:50 PM EST) [facility] Magnesium 0.89 0.69 - 1.07 mMol/L 10/05/2024 12:35 AM [facility] Blood VENOUS BLOOD SPECIMEN / Unknown Venipuncture / Unknown 10/04/2024 11:50 PM EST 10/05/2024 12:03 AM EST Hayley Torres MD CHEMISTRY ORDERABLES Performing Organization Address City/[facility]/ZIP Co de Phone Number [facility] [place] [address] * POC, GLUCOSE (10/04/2024 11:36 PM EST) [facility] Signature Glucometer, POC 121 65 - 199 mg/dL 10/04/2024 11:36 PM EST [facility] Comment:Supplemental ranges: <140 mg/dL before meals <180 mg/dL all other times of the day. Blood CAPILLARY BLOOD / Unknown 10/04/2024 11:36 PM EST 10/04/2024 11:36 PM EST Hayley Torres MD POINT OF CARE TEST O RDERABLES [facility] [place] [address] * POC, GLUCOSE (10/04/2024 7:32 PM EST) Glucometer, POC 163 65 - 199 mg/dL 10/04/2024 7:32 PM EST [facility] Comment:Supplemental ranges: <140 mg/dL before meals <180 mg/dL all other times of the day. Blood CAPILLARY BLOOD / Unknown 10/04/2024 7:32 PM EST 10/04/2024 7:32 PM EST Hayley Torres MD POINT OF CARE TEST O RDERABLES Performing Organization Address [facility] Co de Phone Number [facility] [place] [address] * EKG 12 Lead (10/04/2024 7:14 PM EST) Ventricular rate 81 BPM MUSE SYSTEM Atrial Rate 81 BPM MUSE SYSTEM P-R Interval 174 ms MUSE SYSTEM QRS Duration 112 ms MUSE SYSTEM Q-T Interval 422 ms MUSE SYSTEM QTC Calculated (Bezet) 490 ms MUSE SYSTEM Calculated P [place] 34 degrees MUSE SYSTEM Calculated R [place] 11 degrees MUSE SYSTEM Calculated T [place] 59 degrees MUSE SYSTEM INTERPRETATION Normal sinus rhythm Cannot rule out Inferior infarct , age undetermined Nonspecific T wave abnormality Borderline ECG When compared with ECG of 29-MAY-2024 14:51, Nonspecific T wave abnormality now evident in Lateral leads Confirmed by MD Robert, Deandre Guadarrama ([id number]) on 10/05/2024 3:35:42 PM MUSE SYSTEM 10/04/2024 7:14 PM EST 10/05/2024 3:35 PM EST Hayley Torres MD ECG ORDERABLES Performing Organization Address [facility] Co de Phone Number MUSE SYSTEM * POC, GLUCOSE (10/04/2024 5:07 PM EST) Glucometer, POC 95 65 - 199 mg/dL 10/04/2024 5:07 PM EST [facility] Comment:Supplemental ranges: <140 mg/dL before meals <180 mg/dL all other times of the day. Blood CAPILLARY BLOOD / Unknown 10/04/2024 5:07 PM EST 10/04/2024 5:07 PM EST Hayley Torres MD POINT OF CARE TEST O RDERABLES Performing Organization Address City/[facility]/ZIP Co de Phone Number [facility] [place] [place] [address] * POC, GLUCOSE (10/04/2024 4:49 PM EST) Glucometer, POC 70 65 - 199 mg/dL 10/04/2024 4:50 PM EST [facility] Comment:Supplemental ranges: <140 mg/dL before meals <180 mg/dL all other times of the day. Blood CAPILLARY BLOOD / Unknown 10/04/2024 4:49 PM EST 10/04/2024 4:50 PM EST Hayley Torres MD POINT OF CARE TEST O GILDA Performing Organization Address [facility] Co de Phone Number [facility] [place] [address] * POC, GLUCOSE (10/04/2024 11:49 AM EST) Glucometer, POC 93 65 - 199 mg/dL 10/04/2024 11:49 AM EST [facility] Comment:Supplemental ranges: <140 mg/dL before meals <180 mg/dL all other times of the day. Blood CAPILLARY BLOOD / Unknown 10/04/2024 11:49 AM EST 10/04/2024 11:49 AM EST Hayley Torres MD POINT OF CARE TEST O GILDA Performing Organization Address City/[facility]/ZIP Co de Phone Number [facility] [place] [address] * Vancomycin, trough (10/04/2024 7:53 AM EST) Vancomycin, Trough 19.8 10.0 - 20.0 mg/L 10/04/2024 9:16 AM EST [facility] Comment: Varies according to infection source. Blood VENOUS BLOOD SPECIMEN / Unknown Venipuncture / Unknown 10/04/2024 7:53 AM EST 10/04/2024 8:11 AM EST Hayley Torres MD CHEMISTRY ORDERABLES Performing Organization Address [facility] Co de Phone Number [facility] [place] [address] * POC, GLUCOSE (10/04/2024 7:51 AM EST) Glucometer, POC 105 65 - 199 mg/dL 10/04/2024 7:52 AM EST [facility] Comment:Supplemental ranges: <140 mg/dL before meals <180 mg/dL all other times of the day. Blood CAPILLARY BLOOD / Unknown 10/04/2024 7:51 AM EST 10/04/2024 7:52 AM EST Hayley Torres MD POINT OF CARE TEST O RDERABLES Performing Organization Address [facility] de Phone Number [facility] [place] [address] * POC, GLUCOSE (10/04/2024 3:53 AM EST) Glucometer, POC 90 65 - 199 mg/dL 10/04/2024 3:53 AM EST [facility] Comment:Supplemental ranges: <140 mg/dL before meals <180 mg/dL all other times of the day. Blood CAPILLARY BLOOD / Unknown 10/04/2024 3:53 AM EST 10/04/2024 3:53 AM EST Hayley Torres MD POINT OF CARE TEST O GILDA Performing Organization Address [facility] Co de Phone Number [facility] [place] [place] [address] * (ABNORMAL) CBC (with Diff) (10/04/2024 12:08 [...] EST Hayley Torres MD HEMATOLOGY ORDERABLE S [facility] [place] [address] * (ABNORMAL) Basic Metabolic Panel (10/04/2024 12:08 [...] AM EST Hayley Torres MD CHEMISTRY ORDERABLES [facility] [place] [address] * Phosphorus (10/04/2024 12:08 AM EST) Phosphorus 3.7 2.5 - 4.5 mg/dL 10/04/2024 12:53 AM EST [facility] Blood VENOUS BLOOD SPECIMEN / Unknown Venipuncture / Unknown 10/04/2024 12:08 AM EST 10/04/2024 12:15 AM EST Hayley Torres MD CHEMISTRY ORDERABLES Performing Organization Address City/[facility]/ZIP Co de Phone Number [facility] [place] [address] * Magnesium (10/04/2024 12:08 AM EST) Magnesium 0.89 0.69 - 1.07 mMol/L 10/04/2024 12:53 AM EST [facility] Blood VENOUS BLOOD SPECIMEN / Unknown Venipuncture / Unknown 10/04/2024 12:08 AM EST 10/04/2024 12:15 AM EST Hayley Torres MD CHEMISTRY ORDERABLES Performing Organization Address [facility]/ZIP Co de Phone Number [facility] [place] [address] * POC, GLUCOSE (10/04/2024 12:01 AM EST) Glucometer, POC 132 65 - 199 mg/dL 10/04/2024 12:02 AM EST [facility] Comment:Supplemental ranges: <140 mg/dL before meals <180 mg/dL all other times of the day. Blood CAPILLARY BLOOD / Unknown 10/04/2024 12:01 AM EST 10/04/2024 12:02 AM EST Hayley Torres MD POINT OF CARE TEST O RDERABLES Performing Organization Address City/[facility]/ZIP Co de Phone Number [facility] [place] [place] [address] * POC, GLUCOSE (10/03/2024 7:56 PM EST) Glucometer, POC 123 65 - 199 mg/dL 10/03/2024 7:56 PM EST [facility] Comment:Supplemental ranges: <140 mg/dL before meals <180 mg/dL all other times of the day. Blood CAPILLARY BLOOD / Unknown 10/03/2024 7:56 PM EST 10/03/2024 7:57 PM EST Hayley Torres MD POINT OF CARE TEST O RDERAHERNANDEZ Performing Organization Address City/[facility]/ZIP Co de Phone Number [facility] [place] [address] * POC, GLUCOSE (10/03/2024 5:29 PM EST) Glucometer, POC 182 65 - 199 mg/dL 10/03/2024 5:30 PM EST [facility] Comment:Supplemental ranges: <140 mg/dL before meals <180 mg/dL all other times of the day. Blood CAPILLARY BLOOD / Unknown 10/03/2024 5:29 PM EST 10/03/2024 5:30 PM EST Hayley Torres MD POINT OF CARE TEST O GILDA Performing Organization Address City/[facility]/ZIP Co de Phone Number [facility] [place] [address] * POC, GLUCOSE (10/03/2024 12:54 PM EST) Glucometer, POC 128 65 - 199 mg/dL 10/03/2024 12:54 PM EST [facility] Comment:Supplemental ranges: <140 mg/dL before meals <180 mg/dL all other times of the day. Blood CAPILLARY BLOOD / Unknown 10/03/2024 12:54 PM EST 10/03/2024 12:54 PM EST Hayley Torres MD POINT OF CARE TEST O GILDA [facility] [place] [address] * POC, GLUCOSE (10/03/2024 7:59 AM EST) Glucometer, POC 115 65 - 199 mg/dL 10/03/2024 7:59 AM EST [facility] Comment:Supplemental ranges: <140 mg/dL before meals <180 mg/dL all other times of the day. Blood CAPILLARY BLOOD / Unknown 10/03/2024 7:59 AM EST 10/03/2024 7:59 AM EST Hayley Torres MD POINT OF CARE TEST O GILDA Performing Organization Address [facility] de Phone Number [facility] [place] [address] * POC, GLUCOSE (10/03/2024 5:32 AM EST) Glucometer, POC 119 65 - 199 mg/dL 10/03/2024 5:32 AM EST [facility] Comment:Supplemental ranges: <140 mg/dL before meals <180 mg/dL all other times of the day. Blood CAPILLARY BLOOD / Unknown 10/03/2024 5:32 AM EST 10/03/2024 5:32 AM EST Hayley Torres MD POINT OF CARE TEST O GILDA Performing Organization Address [facility] Co de Phone Number [facility] [place] [address] * POC, GLUCOSE (10/03/2024 4:16 AM EST) Glucometer, POC 152 65 - 199 mg/dL 10/03/2024 4:17 AM EST [facility] Comment:Supplemental ranges: <140 mg/dL before meals <180 mg/dL all other times of the day. Blood CAPILLARY BLOOD / Unknown 10/03/2024 4:16 AM EST 10/03/2024 4:17 AM EST Hayley Torres MD POINT OF CARE TEST O RDTYESHA [facility] [place] [address] * (ABNORMAL) POC, GLUCOSE (10/03/2024 2:02 AM EST) Glucometer, POC 225(H) 65 - 199 mg/dL 10/03/2024 2:02 AM EST [facility] Comment:Supplemental ranges: <140 mg/dL before meals <180 mg/dL all other times of the day. Blood CAPILLARY BLOOD / Unknown 10/03/2024 2:02 AM EST 10/03/2024 2:02 AM EST Hayley Torres MD POINT OF CARE TEST O GILDA [facility] [place] [address] * (ABNORMAL) CBC (with Diff) (10/03/2024 12:27 AM EST) [facility] White Blood Cell 15.33(H) 4.00 - 9.50 [...] HEMATOLOGY ORDERABLE S Performing Organization Address City/State/[facility] Co de Phone Number [facility] [place] [address] * (ABNORMAL) Basic Metabolic Panel (10/03/2024 12:27 [...] - 15 mMol/L 10/03/2024 1:14 AM EST [facility] Calcium 8.4(L) 8.5 - 10.5 mg/dL 10/03/2024 1:14 AM EST [facility] Est Glomerular Filtration Rate - Male 124 mL/min/1. 73 m?? 10/03/2024 1:14 AM EST [facility] Comment: This patient's estimated GFR [...] Torres MD CHEMISTRY ORDERABLES Performing Organization Address City/[facility]/ZIP Co de Phone Number [facility] [place] [address] * Phosphorus (10/03/2024 12:27 AM EST) Phosphorus 3.5 2.5 - 4.5 mg/dL 10/03/2024 1:14 AM EST [facility] Blood VENOUS BLOOD SPECIMEN / Unknown Venipuncture / Unknown 10/03/2024 12:27 AM EST 10/03/2024 12:47 AM EST Hayley Torres MD CHEMISTRY ORDERABLES [facility] [place] [address] * Magnesium (10/03/2024 12:27 AM EST) Magnesium 0.83 0.69 - 1.07 mMol/L 10/03/2024 1:14 AM EST [facility] Blood VENOUS BLOOD SPECIMEN / Unknown Venipuncture / Unknown 10/03/2024 12:27 AM EST 10/03/2024 12:47 AM EST Hayley Torres MD CHEMISTRY ORDERABLES [facility] [place] [address] * (ABNORMAL) POC, GLUCOSE (10/03/2024 12:13 AM EST) Glucometer, POC 255(H) 65 - 199 mg/dL 10/03/2024 12:14 AM EST [facility] Comment:Supplemental ranges: <140 mg/dL before meals <180 mg/dL all other times of the day. Blood CAPILLARY BLOOD / Unknown 10/03/2024 12:13 AM EST 10/03/2024 12:14 AM EST Hayley Torres MD POINT OF CARE TEST O RDERABLES Performing Organization Address City/[facility]/ZIP Co de Phone Number [facility] [place] [address] * POC, GLUCOSE (10/02/2024 8:17 PM EST) Glucometer, POC 177 65 - 199 mg/dL 10/02/2024 8:17 PM EST [facility] Comment:Supplemental ranges: <140 mg/dL before meals <180 mg/dL all other times of the day. Blood CAPILLARY BLOOD / Unknown 10/02/2024 8:17 PM EST 10/02/2024 8:17 PM EST Hayley Torres MD POINT OF CARE TEST O RDERABLES [facility] [place] [address] * POC, GLUCOSE (10/02/2024 6:22 PM EST) Glucometer, POC 172 65 - 199 mg/dL 10/02/2024 6:22 PM EST [facility] Comment:Supplemental ranges: <140 mg/dL before meals <180 mg/dL all other times of the day. Blood CAPILLARY BLOOD / Unknown 10/02/2024 6:22 PM EST 10/02/2024 6:22 PM EST Hayley Torres MD POINT OF CARE TEST O GILDA Performing Organization Address City/[facility]/ZIP Co de Phone Number [facility] [place] [address] * POC, GLUCOSE (10/02/2024 5:01 PM EST) Glucometer, POC 104 65 - 199 mg/dL 10/02/2024 5:01 PM EST [facility] Comment:Supplemental ranges: <140 mg/dL before meals <180 mg/dL all other times of the day. Blood CAPILLARY BLOOD / Unknown 10/02/2024 5:01 PM EST 10/02/2024 5:01 PM EST Hayley Torres MD POINT OF CARE TEST O GILDA Performing Organization Address City/[facility]/ZIP Co de Phone Number [facility] [place] [address] * POC, GLUCOSE (10/02/2024 3:05 PM EST) Glucometer, POC 113 65 - 199 mg/dL 10/02/2024 3:06 PM EST [facility] Comment:Supplemental ranges: <140 mg/dL before meals <180 mg/dL all other times of the day. Blood CAPILLARY BLOOD / Unknown 10/02/2024 3:05 PM EST 10/02/2024 3:06 PM EST Hayley Torres MD POINT OF CARE TEST O GILDA [facility] [place] [address] * POC, GLUCOSE (10/02/2024 11:12 AM EST) Glucometer, POC 146 65 - 199 mg/dL 10/02/2024 11:12 AM EST [facility] Comment:Supplemental ranges: <140 mg/dL before meals <180 mg/dL all other times of the day. Blood CAPILLARY BLOOD / Unknown 10/02/2024 11:12 AM EST 10/02/2024 11:12 AM EST Hayley Torres MD POINT OF CARE TEST O GILDA Performing Organization Address City/[facility]/ZIP Co de Phone Number [facility] [place] [address] * POC, GLUCOSE (10/02/2024 8:12 AM EST) Glucometer, POC 131 65 - 199 mg/dL 10/02/2024 8:12 AM EST [facility] Comment:Supplemental ranges: <140 mg/dL before meals <180 mg/dL all other times of the day. Blood CAPILLARY BLOOD / Unknown 10/02/2024 8:12 AM EST 10/02/2024 8:12 AM EST Hayley Torres MD POINT OF CARE TEST O GILDA [facility] [place] [address] * POC, GLUCOSE (10/02/2024 4:19 AM EST) Glucometer, POC 131 65 - 199 mg/dL 10/02/2024 4:19 AM EST [facility] Comment:Supplemental ranges: <140 mg/dL before meals <180 mg/dL all other times of the day. Blood CAPILLARY BLOOD / Unknown 10/02/2024 4:19 AM EST 10/02/2024 4:19 AM EST Hayley Torres MD POINT OF CARE TEST O RDERABLES [facility] [place] [address] * Phosphorus (10/02/2024 12:41 AM EST) Phosphorus 4.1 2.5 - 4.5 mg/dL 10/02/2024 1:21 AM EST [facility] Blood VENOUS BLOOD SPECIMEN / Unknown Venipuncture / Unknown 10/02/2024 12:41 AM EST 10/02/2024 12:45 AM EST Hayley Torres MD CHEMISTRY ORDERABLES Performing Organization Address City/[facility]/ZIP Co de Phone Number [facility] [place] [address] * Magnesium (10/02/2024 12:41 AM EST) Pathologist [facility] Magnesium 0.85 0.69 - 1.07 mMol/L 10/02/2024 1:21 AM EST [facility] Blood VENOUS BLOOD SPECIMEN / Unknown Venipuncture / Unknown 10/02/2024 12:41 AM EST 10/02/2024 12:45 AM EST Hayley Torres MD CHEMISTRY ORDERABLES [facility] [place] [address] * (ABNORMAL) Basic Metabolic Panel (10/02/2024 12:41 AM EST) Glucose 113 65 - 199 mg/dL 10/02/2024 1:21 AM EST [facility] Comment:Glucose Concentratio n >=200 mg/dL plus symptoms is consistent with Diabetes Mellitus. Blood Urea Nitrogen 11 10 - 20 mg/dL 10/02/2024 1:21 AM EST [facility] Creatinine 0.49(L) 0.80 - 1.50 mg/dL 10/02/2024 1:21 AM EST [facility] Sodium 138 135 - 145 [...] AM EST Hayley Torres MD CHEMISTRY ORDERABLES [facility] [place] [address] * (ABNORMAL) CBC (with Diff) (10/02/2024 12:41 [...] EST Hayley Torres MD HEMATOLOGY ORDERABLE S [facility] [place] [address] * POC, GLUCOSE (10/02/2024 12:40 AM EST) Glucometer, POC 116 65 - 199 mg/dL 10/02/2024 12:41 AM [facility] Comment:Supplemental ranges: <140 mg/dL before meals <180 mg/dL all other times of the day. Blood CAPILLARY BLOOD / Unknown 10/02/2024 12:40 AM EST 10/02/2024 12:41 AM EST Hayley Torres MD POINT OF CARE TEST O GILDA [facility] [place] [address] * POC, GLUCOSE (10/01/2024 8:11 PM EST) Glucometer, POC 123 65 - 199 mg/dL 10/01/2024 8:11 PM EST [facility] Comment:Supplemental ranges: <140 mg/dL before meals <180 mg/dL all other times of the day. Blood CAPILLARY BLOOD / Unknown 10/01/2024 8:11 PM EST 10/01/2024 8:11 PM EST Hayley Torres MD POINT OF CARE TEST O GILDA Performing Organization Address City/[facility]/ZIP Co de Phone Number [facility] [place] [address] * POC, GLUCOSE (10/01/2024 6:00 PM EST) Glucometer, POC 112 65 - 199 mg/dL 10/01/2024 6:00 PM EST [facility] Comment:Supplemental ranges: <140 mg/dL before meals <180 mg/dL all other times of the day. Blood CAPILLARY BLOOD / Unknown 10/01/2024 6:00 PM EST 10/01/2024 6:00 PM EST Hayley Torres MD POINT OF CARE TEST O GILDA [facility] [place] [address] * POC, GLUCOSE (10/01/2024 3:53 PM EST) Glucometer, POC 97 65 - 199 mg/dL 10/01/2024 3:53 PM EST [facility] Comment:Supplemental ranges: <140 mg/dL before meals <180 mg/dL all other times of the day. Blood CAPILLARY BLOOD / Unknown 10/01/2024 3:53 PM EST 10/01/2024 3:53 PM EST Hayley Torres MD POINT OF CARE TEST O GILDA Performing Organization Address City/[facility]/ZIP Co de Phone Number [facility] [place] [place] [address] * POC, GLUCOSE (10/01/2024 2:25 PM EST) Glucometer, POC 117 65 - 199 mg/dL 10/01/2024 2:25 PM EST [facility] Comment:Supplemental ranges: <140 mg/dL before meals <180 mg/dL all other times of the day. Blood CAPILLARY BLOOD / Unknown 10/01/2024 2:25 PM EST 10/01/2024 2:25 PM EST Hayley Torres MD POINT OF CARE TEST O GILDA Performing Organization Address [facility] Co de Phone Number [facility] [place] [address] * POC, GLUCOSE (10/01/2024 11:43 AM EST) Glucometer, POC 174 65 - 199 mg/dL 10/01/2024 11:43 AM EST [facility] Comment:Supplemental ranges: <140 mg/dL before meals <180 mg/dL all other times of the day. Blood CAPILLARY BLOOD / Unknown 10/01/2024 11:43 AM EST 10/01/2024 11:43 AM EST Hayley Torres MD POINT OF CARE TEST O GILDA Performing Organization Address City/[facility]/ZIP Co de Phone Number [facility] [place] [address] * POC, GLUCOSE (10/01/2024 9:43 AM EST) Glucometer, POC 191 65 - 199 mg/dL 10/01/2024 9:43 AM EST [facility] Comment:Supplemental ranges: <140 mg/dL before meals <180 mg/dL all other times of the day. Blood CAPILLARY BLOOD / Unknown 10/01/2024 9:43 AM EST 10/01/2024 9:43 AM EST Hayley Torres MD POINT OF CARE TEST O DIMITRIERAHERNANDEZ Performing Organization Address City/[facility]/ZIP Co de Phone Number [facility] [place] [address] * POC, GLUCOSE (10/01/2024 7:48 AM EST) Glucometer, POC 151 65 - 199 mg/dL 10/01/2024 7:48 AM EST [facility] Comment:Supplemental ranges: <140 mg/dL before meals <180 mg/dL all other times of the day. Blood CAPILLARY BLOOD / Unknown 10/01/2024 7:48 AM EST 10/01/2024 7:48 AM EST Hayley Torres MD POINT OF CARE TEST O GILDA Performing Organization Address City/[facility]/ZIP Co de Phone Number [facility] [place] [address] * POC, GLUCOSE (10/01/2024 4:25 AM EST) Glucometer, POC 133 65 - 199 mg/dL 10/01/2024 4:26 AM EST [facility] Comment:Supplemental ranges: <140 mg/dL before meals <180 mg/dL all other times of the day. Blood CAPILLARY BLOOD / Unknown 10/01/2024 4:25 AM EST 10/01/2024 4:26 AM EST Hayley Torres MD POINT OF CARE TEST O GILDA [facility] [place] [address] * Phosphorus (10/01/2024 2:02 AM EST) Pathologist [facility] Phosphorus 3.9 2.5 - 4.5 mg/dL 10/01/2024 7:16 AM EST [facility] Blood VENOUS BLOOD SPECIMEN / Unknown Venipuncture / Unknown 10/01/2024 2:02 AM EST 10/01/2024 2:10 AM EST Hayley Torres MD CHEMISTRY ORDERABLES Performing Organization Address City/[facility]/ZIP Co de Phone Number [facility] [place] [address] * (ABNORMAL) Scan, Peripheral Blood (10/01/2024 2:02 AM EST) [facility] RBC Morphology Abnormal 10/01/2024 2:55 AM EST [facility] Platelet Estimate Increased(A) Normal 10/01 2:55 AM EST [facility] Polychromasia Present 10/01/2024 2:55 AM EST [facility] Platelet Clumps Present(A) (none) 2:55 AM EST [facility] Blood VENOUS BLOOD SPECIMEN / Unknown Venipuncture / Unknown 10/01/2024 2:02 AM EST 10/01/2024 2:10 AM EST Hayley Torres MD HEMATOLOGY ORDERABLE S Performing Organization Address City/[facility]/ZIP Co de Phone Number [facility] [place] [address] * Magnesium (10/01/2024 2:02 AM EST) Pathologist [facility] Magnesium 0.79 0.69 - 1.07 mMol/L 10/01/2024 2:41 AM EST [facility] Blood VENOUS BLOOD SPECIMEN / Unknown Venipuncture / Unknown 10/01/2024 2:02 AM EST 10/01/2024 2:10 AM EST Hayley Torres MD CHEMISTRY ORDERABLES [facility] [place] [address] * (ABNORMAL) Basic Metabolic Panel (10/01/2024 2:02 [...] AM EST Hayley Torres MD CHEMISTRY ORDERABLES [facility] [place] [address] * (ABNORMAL) CBC (with Diff) (10/01/2024 2:02 [...] 0.40 x10(3)/mc L 10/01/2024 2:55 AM EST [facility] Comment:This is an appended report. These results have been appended to a previously preliminary verified report. Basophil % 0.6 % 10/01/2024 2:55 AM EST [facility] Comment:This is an appended report. These results have been appended to a previously preliminary verified report. Baso Absolute 0.06 0.00 - 0.10 x10(3)/mc L 10/01/2024 2:55 AM EST [facility] Comment:This is an appended report. These results have been appended to a previously preliminary verified report. Immature Gran % 8.4 % 2:55 AM EST [facility] Comment:This is an appended report. These results have been appended to a previously preliminary verified report. Immature Gran Absolute 0.85(H) 0.00 - 0.04 x10(3)/mc L 10/01/2024 2:55 AM EST [facility] Comment:This is an appended report. These results have been appended to a previously preliminary verified report. Blood VENOUS BLOOD SPECIMEN / Unknown Venipuncture / Unknown 10/01/2024 2:02 AM EST 10/01/2024 2:10 AM EST Hayley Torres MD HEMATOLOGY ORDERABLE S [facility] [place] [address] * POC, GLUCOSE (10/01/2024 12:32 AM EST) [facility] Signature Glucometer, POC 179 65 - 199 mg/dL 10/01/2024 12:32 AM EST [facility] Comment:Supplemental ranges: <140 mg/dL before meals <180 mg/dL all other times of the day. Blood CAPILLARY BLOOD / Unknown 10/01/2024 12:32 AM EST 10/01/2024 12:32 AM EST Hayley Torres MD POINT OF CARE TEST O GILDA Performing Organization Address City/[facility] Co de Phone Number [facility] [place] [address] * POC, GLUCOSE (09/30/2024 7:37 PM EST) Glucometer, POC 140 65 - 199 mg/dL 09/30/2024 7:38 PM EST [facility] Comment:Supplemental ranges: <140 mg/dL before meals <180 mg/dL all other times of the day. Blood CAPILLARY BLOOD / Unknown 09/30/2024 7:37 PM EST 09/30/2024 7:38 PM EST Hayley Torres MD POINT OF CARE TEST O GILDA Performing Organization Address [facility] Co de Phone Number [facility] [place] [address] * POC, GLUCOSE (09/30/2024 4:29 PM EST) Glucometer, POC 126 65 - 199 mg/dL 09/30/2024 4:30 PM EST [facility] Comment:Supplemental ranges: <140 mg/dL before meals <180 mg/dL all other times of the day. Blood CAPILLARY BLOOD / Unknown 09/30/2024 4:29 PM EST 09/30/2024 4:30 PM EST Hayley Torres MD POINT OF CARE TEST O GILDA Performing Organization Address City/[facility] Co de Phone Number [facility] [place] [address] * POC, GLUCOSE (09/30/2024 12:16 PM EST) Glucometer, POC 107 65 - 199 mg/dL 09/30/2024 12:16 PM EST [facility] Comment:Supplemental ranges: <140 mg/dL before meals <180 mg/dL all other times of the day. Blood CAPILLARY BLOOD / Unknown 09/30/2024 12:16 PM EST 09/30/2024 12:16 PM EST Hayley Torres MD POINT OF CARE TEST O RDERABLES Performing Organization Address City/[facility]/ZIP Co de Phone Number [facility] [place] [address] * POC, GLUCOSE (09/30/2024 7:58 AM EST) Glucometer, POC 92 65 - 199 mg/dL 09/30/2024 7:58 AM EST [facility] Comment:Supplemental ranges: <140 mg/dL before meals <180 mg/dL all other times of the day. Blood CAPILLARY BLOOD / Unknown 09/30/2024 7:58 AM EST 09/30/2024 7:58 AM EST Hayley Torres MD POINT OF CARE TEST O RDTYESHA Performing Organization Address [facility]/ZIP Co de Phone Number [facility] [place] [address] * Potassium (09/30/2024 6:27 AM EST) Potassium 3.9 3.5 - 5.0 mMol/L 09/30/2024 7:10 AM EST [facility] Blood VENOUS BLOOD SPECIMEN / Unknown Venipuncture / Unknown 09/30/2024 6:27 AM EST 09/30/2024 6:35 AM EST Hayley Torres MD CHEMISTRY ORDERABLES Performing Organization Address City/[facility]/ZIP Co de Phone Number [facility] [place] [address] * Vancomycin, trough (09/30/2024 6:27 AM EST) Vancomycin, Trough 14.1 10.0 - 20.0 mg/L 09/30/2024 7:10 AM EST [facility] Comment: Varies according to infection source. Blood VENOUS BLOOD SPECIMEN / Unknown Venipuncture / Unknown 09/30/2024 6:27 AM EST 09/30/2024 6:35 AM EST Hayley Torres MD CHEMISTRY ORDERABLES Performing Organization Address City/[facility]/ZIP Co de Phone Number [facility] [place] [address] * POC, GLUCOSE (09/30/2024 3:51 AM EST) Glucometer, POC 134 65 - 199 mg/dL 09/30/2024 3:51 AM EST [facility] Comment:Supplemental ranges: <140 mg/dL before meals <180 mg/dL all other times of the day. Blood CAPILLARY BLOOD / Unknown 09/30/2024 3:51 AM EST 09/30/2024 3:51 AM EST Hayley Torres MD POINT OF CARE TEST O RDERABLES Performing Organization Address City/[facility]/ZIP Co de Phone Number [facility] [place] [address] * Magnesium (09/29/2024 11:52 PM EST) Magnesium 0.85 0.69 - 1.07 mMol/L 09/30/2024 12:25 AM EST [facility] Blood VENOUS BLOOD SPECIMEN / Unknown Venipuncture / Unknown 09/29/2024 11:52 PM EST 09/29/2024 11:58 PM EST Hayley Torres MD CHEMISTRY ORDERABLES Performing Organization Address City/[facility]/ZIP Co de Phone Number [facility] [place] [address] * (ABNORMAL) Basic Metabolic Panel (09/29/2024 11:52 [...] PM EST Hayley Torres MD CHEMISTRY ORDERABLES [facility] [place] [address] * (ABNORMAL) CBC (with Diff) (09/29/2024 11:52 [...] EST Hayley Torres MD HEMATOLOGY ORDERABLE S [facility] [place] [address] * POC, GLUCOSE (09/29/2024 11:51 PM EST) Glucometer, POC 134 65 - 199 mg/dL 09/29/2024 11:51 PM EST [facility] Comment:Supplemental ranges: <140 mg/dL before meals <180 mg/dL all other times of the day. Blood CAPILLARY BLOOD / Unknown 09/29/2024 11:51 PM EST 09/29/2024 11:51 PM EST Hayley Torres MD POINT OF CARE TEST O RDERABLES Performing Organization Address City/[facility]/ZIP Co de Phone Number [facility] [place] [address] * Blood culture (09/29/2024 9:24 PM EST) Blood Culture No growth at 120 hours 10/04/2024 11:01 PM EST [facility] Blood VENOUS BLOOD SPECIMEN / Unknown Venipuncture / Unknown 09/29/2024 9:24 PM EST 09/29/2024 9:34 PM EST Hayley Torres MD MICROBIOLOGY - BLOOD ORDERABLES Performing Organization Address City/[facility]/ZIP Co de Phone Number [facility] [place] [address] * Blood culture (09/29/2024 9:24 PM EST) Blood Culture No growth at 120 hours 10/04/2024 11:01 PM EST [facility] Blood VENOUS BLOOD SPECIMEN / Unknown Venipuncture / Unknown 09/29/2024 9:24 PM EST 09/29/2024 9:34 PM EST Marko Dickson MD MICROBIOLOGY - BLOOD ORDERABLES [facility] [place] [address] * (ABNORMAL) POC, GLUCOSE (09/29/2024 7:35 PM EST) Glucometer, POC 202(H) 65 - 199 mg/dL 09/29/2024 7:36 PM EST [facility] Comment:Supplemental ranges: <140 mg/dL before meals <180 mg/dL all other times of the day. Blood CAPILLARY BLOOD / Unknown 09/29/2024 7:35 PM EST 09/29/2024 7:36 PM EST Hayley Torres MD POINT OF CARE TEST O GILDA Performing Organization Address City/[facility]/ZIP Co de Phone Number [facility] [place] [address] * POC, GLUCOSE (09/29/2024 6:48 PM EST) Glucometer, POC 161 65 - 199 mg/dL 09/29/2024 6:48 PM EST [facility] Comment:Supplemental ranges: <140 mg/dL before meals <180 mg/dL all other times of the day. Blood CAPILLARY BLOOD / Unknown 09/29/2024 6:48 PM EST 09/29/2024 6:49 PM EST Hayley Torres MD POINT OF CARE TEST O GILDA Performing Organization Address City/[facility]/ZIP Co de Phone Number [facility] [place] [address] * POC, GLUCOSE (09/29/2024 4:06 PM EST) Glucometer, POC 122 65 - 199 mg/dL 09/29/2024 4:06 PM EST [facility] Comment:Supplemental ranges: <140 mg/dL before meals <180 mg/dL all other times of the day. Blood CAPILLARY BLOOD / Unknown 09/29/2024 4:06 PM EST 09/29/2024 4:06 PM EST Hayley Torres MD POINT OF CARE TEST O RDERABLES Performing Organization Address [facility] Co de Phone Number [facility] [place] [address] * POC, GLUCOSE (09/29/2024 11:49 AM EST) Glucometer, POC 135 65 - 199 mg/dL 09/29/2024 11:49 AM EST [facility] Comment:Supplemental ranges: <140 mg/dL before meals <180 mg/dL all other times of the day. Blood CAPILLARY BLOOD / Unknown 09/29/2024 11:49 AM EST 09/29/2024 11:50 AM EST Hayley Torres MD POINT OF CARE TEST O RDERAHERNANDEZ Performing Organization Address [facility] de Phone Number [facility] [place] [address] * (ABNORMAL) POC, GLUCOSE (09/29/2024 7:53 AM EST) Glucometer, POC 202(H) 65 - 199 mg/dL 09/29/2024 7:53 AM EST [facility] Comment:Supplemental ranges: <140 mg/dL before meals <180 mg/dL all other times of the day. Blood CAPILLARY BLOOD / Unknown 09/29/2024 7:53 AM EST 09/29/2024 7:53 AM EST Hayley Torres MD POINT OF CARE TEST O RDERAHERNANDEZ Performing Organization Address [facility] Co de Phone Number [facility] [place] [address] * POC, GLUCOSE (09/29/2024 3:45 AM EST) Glucometer, POC 184 65 - 199 mg/dL 09/29/2024 3:46 AM EST [facility] Comment:Supplemental ranges: <140 mg/dL before meals <180 mg/dL all other times of the day. Blood CAPILLARY BLOOD / Unknown 09/29/2024 3:45 AM EST 09/29/2024 3:46 AM EST Hayley Torres MD POINT OF CARE TEST O RDERABLES [facility] [place] [address] * (ABNORMAL) Hemoglobin A1c (09/28/2024 11:51 PM EST) Hemoglobin A1c 9.7(H) 4.3 - 5.6 % 09/29/2024 9:54 AM EST [facility] Comment: Per ADA guidelines, without [...] red blood cell turnover may not be operations support representative of glycemic control. Reference Interval: 4.3 - 5.6% 5.7 - 6.4%: Consistent with prediabetes >=6.5%: Consistent with diagnosis of diabetes mellitus Estimated Average Glucose 232 mg/dL 09/29/2024 9:54 AM EST [facility] Blood VENOUS BLOOD SPECIMEN / Unknown Venipuncture / Unknown 09/28/2024 11:51 PM EST 09/28/2024 11:56 PM EST Hayley Torres MD CHEMISTRY ORDERABLES [facility] [place] [address] * Magnesium (09/28/2024 11:51 PM EST) Magnesium 0.72 0.69 - 1.07 mMol/L 09/29/2024 12:27 AM EST [facility] Blood VENOUS BLOOD SPECIMEN / Unknown Venipuncture / Unknown 09/28/2024 11:51 PM EST 09/28/2024 11:57 PM EST Hayley Torres MD CHEMISTRY ORDERABLES [facility] [place] [address] * (ABNORMAL) Basic Metabolic Panel (09/28/2024 11:51 [...] PM EST Hayley Torres MD CHEMISTRY ORDERABLES [facility] [place] [id number] * (ABNORMAL) CBC (with Diff) (09/28/2024 11:51 [...] 0.04 x10(3)/mc L 09/29/2024 12:00 AM EST [facility] Blood VENOUS BLOOD SPECIMEN / Unknown Venipuncture / Unknown 09/28/2024 11:51 PM EST 09/28/2024 11:56 PM EST Hayley Torres MD HEMATOLOGY ORDERABLE S Performing Organization Address City/[facility]/ZIP Co de Phone Number [facility] [place] [address] * (ABNORMAL) POC, GLUCOSE (09/28/2024 11:45 PM EST) Glucometer, POC 238(H) 65 - 199 mg/dL 09/28/2024 11:45 PM EST [facility] Comment:Supplemental ranges: <140 mg/dL before meals <180 mg/dL all other times of the day. Blood CAPILLARY BLOOD / Unknown 09/28/2024 11:45 PM EST 09/28/2024 11:45 PM EST Hayley Torres MD POINT OF CARE TEST O GILDA Performing Organization Address [facility] Co de Phone Number [facility] [place] [address] * (ABNORMAL) POC, GLUCOSE (09/28/2024 10:00 PM EST) Glucometer, POC 287(H) 65 - 199 mg/dL 09/28/2024 10:00 PM EST [facility] Comment:Supplemental ranges: <140 mg/dL before meals <180 mg/dL all other times of the day. Blood CAPILLARY BLOOD / Unknown 09/28/2024 10:00 PM EST 09/28/2024 10:00 PM EST Hayley Torres MD POINT OF CARE TEST O GILDA Performing Organization Address City/[facility]/ZIP Co de Phone Number [facility] [place] [address] * (ABNORMAL) POC, GLUCOSE (09/28/2024 7:51 PM EST) Glucometer, POC 243(H) 65 - 199 mg/dL 09/28/2024 7:52 PM EST [facility] Comment:Supplemental ranges: <140 mg/dL before meals <180 mg/dL all other times of the day. Blood CAPILLARY BLOOD / Unknown 09/28/2024 7:51 PM EST 09/28/2024 7:52 PM EST Hayley Torres MD POINT OF CARE TEST O GILDA Performing Organization Address [facility] Co de Phone Number [facility] [place] [address] * Blood culture (09/28/2024 5:49 PM EST) Blood Culture No growth at 120 hours 10/03/2024 7:01 PM EST [facility] Blood VENOUS BLOOD SPECIMEN / Unknown Venipuncture / Unknown 09/28/2024 5:49 PM EST 09/28/2024 5:53 PM EST Marko Dickson MD MICROBIOLOGY - BLOOD ORDERABLES Performing Organization Address [facility] Co de Phone Number [facility] [place] [address] * (ABNORMAL) POC, GLUCOSE (09/28/2024 4:42 PM EST) Glucometer, POC 203(H) 65 - 199 mg/dL 09/28/2024 4:42 PM EST [facility] Comment:Supplemental ranges: <140 mg/dL before meals <180 mg/dL all other times of the day. Blood CAPILLARY BLOOD / Unknown 09/28/2024 4:42 PM EST 09/28/2024 4:42 PM EST Hayley Torres MD POINT OF CARE TEST O RDTYESHA [facility] [place] [address] * (ABNORMAL) Blood Gas, Arterial POC (09/28/2024 3:16 PM EST) pH, Arterial 7.42 7.35 - 7.45 09/28/2024 3:17 PM [facility] PCO2, Arterial 39 35 - 45 [...] - 2.2 mmol/L 09/28/2024 3:17 PM EST [facility] IONIZED CALCIUM, ARTERIAL 1.08(L) 1.15 - 1.33 mmol/L 09/28/2024 3:17 PM EST [facility] Glucose, Arterial 163 65 - 199 mg/dL 09/28/2024 3:17 PM EST [facility] Comment:Glucose Concentratio n >=200 mg/dL plus symptoms is consistent with Diabetes Mellitus. Blood ARTERIAL BLOOD / Unknown 09/28/2024 3:16 PM EST 09/28/2024 3:17 PM EST Hayley Torres MD POINT OF CARE TEST O RDERABLES Performing Organization Address [facility]/[place]/[facility] Co de Phone Number [facility] [place] [address] * Surgical Pathology (09/28/2024 2:10 PM EST) Case Report Surgical Pathology Report ? Case: [id number] ? Authorizing Provider: ??Hayley Torres MD ? Collected: ? 09/28/2024 1410 ? Ordering Location: ? Main Operating Room [facility] ?? Received: ?09/28/2024 1644 ? [facility] ? 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 STRUCTURE OF LEFT LOWER LIMB / Unknown 09/28/2024 2:10 PM EST 09/28/2024 4:44 PM EST Comment:Left femoral proxima l graft Biomedical device (physical object) STRUCTURE OF LEFT LOWER LIMB / Unknown 09/28/2024 2:17 PM EST 09/28/2024 4:44 PM EST Comment:Left distal BK pop g raft Hayley Torres MD PATHOLOGY/CYTOLOGY O RDERABLES [facility] [place] [address] * Potassium (09/28/2024 10:45 AM EST) Potassium 4.6 3.5 - 5.0 mMol/L 09/28/2024 12:26 PM EST [facility] Blood VENOUS BLOOD SPECIMEN / Unknown Venipuncture / Unknown 09/28/2024 10:45 AM EST 09/28/2024 10:53 AM EST Marko Dickson MD CHEMISTRY ORDERABLES [facility] [place] [address] * POC, GLUCOSE (09/28/2024 7:57 AM EST) Glucometer, POC 192 65 - 199 mg/dL 09/28/2024 7:57 AM EST [facility] Comment:Supplemental ranges: <140 mg/dL before meals <180 mg/dL all other times of the day. Blood CAPILLARY BLOOD / Unknown 09/28/2024 7:57 AM EST 09/28/2024 7:57 AM EST Marko Dickson MD POINT OF CARE TEST O RDERABLES [facility] [place] [address] * ELEN, legs, multiple levels (09/28/2024 7:44 AM EST) VB Text Report Department: Vascular Surgery Lab Patient: [id number] (GEOVANNA DIXON) CPT: 44091 Referring Physician: HERMILA SNIDER ?? Phone: Indications: [...] EST Narrative 09/28/2024 9:15 AM EST [address] [place] [address] ? Echocardiogram Report Name: GEOVANNA DIXON JR ?Study Date: 09/28/2024 06:56 AMBP: 132/75 mmHg ? Patient Location: ^IC08^A : 1975 ? Height: 179 cm ? Account: [id number] Age: 49 yrs ? Weight: 108 kg Gender: Male ?BSA: 2.3 m2 Ordering Physician: Marok Dickson MD Referring Physician: PATRIC GILES Performed [...] 05/29/2024, no significant changes. Procedure Limited - 45306. Doppler - 91050. Color Doppler - 33354. Suboptimal quality. This study is limited because [...] Note David Lomeli MD - 09/28/2024 [address] [place] [address] Echocardiogram Report Name: GEOVANNA DIXON, JR Study Date: 406:56 AMBP: 132/75 mmHg Patient Location:[facility]^ : 1975 Height: 179 cm Account: [id number] Age: 49 yrs Weight: 108 kg Gender: [...] 05/29/2024, no significant changes. Procedure Limited - 03368. Doppler - 37387. Color Doppler - 69255. Suboptimalquality. This study is limited because of [...] - 20.0 mg/L 09/28/2024 7:21 AM EST [facility] Comment: Varies according to infection source. Blood VENOUS BLOOD SPECIMEN / Unknown Venipuncture / Unknown 09/28/2024 6:44 AM EST 09/28/2024 6:49 AM EST Marko Dickson MD CHEMISTRY ORDERABLES Performing Organization Address [facility]/ZIP Co de Phone Number [facility] [place] [address] * (ABNORMAL) Potassium (09/28/2024 4:55 AM EST) Potassium 2.9(LLL) 3.5 - 5.0 mMol/L 09/28/2024 5:31 AM EST [facility] Blood VENOUS BLOOD SPECIMEN / Unknown Venipuncture / Unknown 09/28/2024 4:55 AM EST 09/28/2024 5:01 AM EST Marko Dickson MD CHEMISTRY ORDERABLES Performing Organization Address [facility] Co de Phone Number [facility] [place] [address] * (ABNORMAL) POC, GLUCOSE (09/28/2024 3:54 AM EST) Glucometer, POC 229(H) 65 - 199 mg/dL 09/28/2024 3:54 AM EST [facility] Comment:Supplemental ranges: <140 mg/dL before meals <180 mg/dL all other times of the day. Blood CAPILLARY BLOOD / Unknown 09/28/2024 3:54 AM EST 09/28/2024 3:54 AM EST Marko Dickson MD POINT OF CARE TEST O RDERABLES Performing Organization Address [facility] Co de Phone Number [facility] [place] [address] * Magnesium (09/27/2024 11:58 PM EST) Magnesium 0.77 0.69 - 1.07 mMol/L 09/28/2024 12:38 AM EST [facility] Blood VENOUS BLOOD SPECIMEN / Unknown Venipuncture / Unknown 09/27/2024 11:58 PM EST 09/28/2024 12:10 AM EST Hayley Torres MD CHEMISTRY ORDERABLES [facility] [place] [address] * (ABNORMAL) Basic Metabolic Panel (09/27/2024 11:58 PM EST) Glucose 246(H) 65 - 199 mg/dL 09/28/2024 12:38 AM EST [facility] Comment:Glucose Concentratio n >=200 mg/dL [...] AM EST Hayley Torres MD CHEMISTRY ORDERABLES [facility] [place] [address] * (ABNORMAL) CBC (with Diff) (09/27/2024 11:58 [...] 0.10 x10(3)/mc L 09/28/2024 12:14 AM EST [facility] Immature Gran % 1.4 % 12:14 AM EST [facility] Immature Gran Absolute 0.24(H) 0.00 - 0.04 x10(3)/mc L 09/28/2024 12:14 AM EST [facility] Blood VENOUS BLOOD SPECIMEN / Unknown Venipuncture / Unknown 09/27/2024 11:58 PM EST 09/28/2024 12:10 AM EST Hayley Torres MD HEMATOLOGY ORDERABLE S [facility] [place] [address] * (ABNORMAL) POC, GLUCOSE (09/27/2024 11:46 PM EST) Glucometer, POC 205(H) 65 - 199 mg/dL 09/27/2024 11:46 PM EST [facility] Comment:Supplemental ranges: <140 mg/dL before meals <180 mg/dL all other times of the day. Blood CAPILLARY BLOOD / Unknown 09/27/2024 11:46 PM EST 09/27/2024 11:46 PM EST Marko Dickson MD POINT OF CARE TEST O RDERABLES [facility] [address] * (ABNORMAL) Blood culture (09/27/2024 9:33 PM EST) Blood Culture Methicillin Resistant Staphylococcus aureus(Critical) 10/02/2024 8:04 AM EST [facility] Comment:Susceptibilities pre viously reported. Gram Stain Aerobic Bottle: Gram positive cocci in clusters(Critical ) 10/02/2024 8:04 AM EST [facility] Blood VENOUS BLOOD SPECIMEN / Unknown Venipuncture / Unknown 09/27/2024 9:33 PM EST 09/27/2024 9:38 PM EST Marko Dickson MD MICROBIOLOGY - BLOOD ORDERABLES [facility] [place] [address] * POC, GLUCOSE (09/27/2024 7:51 PM EST) Glucometer, POC 142 65 - 199 mg/dL 09/27/2024 7:51 PM EST [facility] Comment:Supplemental ranges: <140 mg/dL before meals <180 mg/dL all other times of the day. Blood CAPILLARY BLOOD / Unknown 09/27/2024 7:51 PM EST 09/27/2024 7:51 PM EST Marko Dickson MD POINT OF CARE TEST O RDERABLES Performing Organization Address City/[facility]/ZIP Co de Phone Number [facility] [place] [address] * (ABNORMAL) Hemogram (09/27/2024 5:55 PM EST) [facility] White Blood Cell 19.38(H) 4.00 - 9.50 x10(3)/mc L 09/27/2024 6:16 PM [facility] Red Blood Cell 3.76(L) 4.58 - 5.54 x10(6)/mc L 09/27/2024 6:16 PM EST [facility] Hemoglobin 11.0(L) 13.7 - 16.5 g/dL 09/27/2024 6:16 PM [facility] Hematocrit 31.6(L) 40.5 - 48.5 % 09/27/2024 6:16 PM EST [facility] Mean Cell Volume 84.0 82.9 - 93.1 fL 09/27/2024 6:16 PM [facility] Mean Cell Hemoglobin 29.3 27.5 - 32.1 pg 09/27/2024 6:16 PM [facility] Mean Cell Hemoglobin Concentration 34.8 32.0 - 35.7 g/dL 09/27/2024 6:16 PM EST [facility] Platelet 322 145 - 357 [...] EST Marko Dickson MD HEMATOLOGY ORDERABLE S [facility] [place] [address] * POC, GLUCOSE (09/27/2024 5:48 PM EST) [facility] Signature Glucometer, POC 171 65 - 199 mg/dL 09/27/2024 5:48 PM EST [facility] Comment:Supplemental ranges: <140 mg/dL before meals <180 mg/dL all other times of the day. Blood CAPILLARY BLOOD / Unknown 09/27/2024 5:48 PM EST 09/27/2024 5:48 PM EST Marko Dickson MD POINT OF CARE TEST O RDERABLES [facility] [place] [address] * Anaerobic Culture (09/27/2024 4:54 PM EST) Anaerobic Culture No anaerobic organisms isolated 10/01/2024 3:54 PM EST [facility] Tissue STRUCTURE OF LEFT THIGH / Unknown 09/27/2024 4:54 PM EST Comment:Infected explanted l eft leg bypass graft Hayley Torres MD MICROBIOLOGY - GENER AL ORDERABLES [facility] [place] [address] * (ABNORMAL) Tissue Culture, Aerobic Only (09/27/2024 4:54 PM EST) Tissue Culture Rare Methicillin Resistant Staphylococcus aureus(A) VITEK 2 METHOD 10/01/2024 1:18 PM EST [facility] Gram Stain Few Neutrophils seen 10/01/2024 1:18 PM EST [facility] Gram Stain No microorganisms seen 10/01/2024 1:18 PM EST [facility] Tissue STRUCTURE OF LEFT THIGH [...] - GENER AL ORDERABLES Performing Organization Address [facility] Co de Phone Number [facility] [place] [address] * Fungus culture (09/27/2024 4:54 PM EST) Fungus Culture No fungus isolated 10/31/2024 7:55 AM EST [facility] Tissue STRUCTURE OF LEFT THIGH / Unknown 09/27/2024 4:54 PM EST 09/27/2024 5:23 PM EST Comment:Infected explanted l eft leg bypass graft Hayley Torres MD MICROBIOLOGY - GENER AL ORDERABLES Performing Organization Address [facility] Co de Phone Number [facility] [place] [place] [address] * POC, GLUCOSE (09/27/2024 3:23 PM EST) Glucometer, POC 178 65 - 199 mg/dL 09/27/2024 3:23 PM EST [facility] Comment:Supplemental ranges: <140 mg/dL before meals <180 mg/dL all other times of the day. Blood CAPILLARY BLOOD / Unknown 09/27/2024 3:23 PM EST 09/27/2024 3:23 PM EST Marko Dickson MD POINT OF CARE TEST O RDERABLES Performing Organization Address [facility] Co de Phone Number [facility] [place] [place] [address] * POC, GLUCOSE (09/27/2024 11:29 AM EST) Glucometer, POC 181 65 - 199 mg/dL 09/27/2024 11:29 AM EST [facility] Comment:Supplemental ranges: <140 mg/dL before meals <180 mg/dL all other times of the day. Blood CAPILLARY BLOOD / Unknown 09/27/2024 11:29 AM EST 09/27/2024 11:30 AM EST Marko Dickson MD POINT OF CARE TEST O RDERABLES [facility] [place] [address] * CT Lower Extremity w Contrast Left (09/27/2024 9:16 AM EST) WORKSTATION ID [id number] [facility] [...] please contact the health child day care center worker that requested your imaging first. ? Narrative [...] femoral neurovascular bundle adjacent to surgical plate cmaeron. The surgical drain travels superficial to the vastus medialis muscle. The abscess fluid in the upper thigh and along the surgical drain are resolved.. A residual loculated the fluid collection traveling along the previous bypass graft tract is approximately 25 x 35 mm diameter. This abscess is wedged between the vastus medialis and adductor [place] muscle. This tracks into the popliteal fossa [...] questions please contactthe health child day care center worker that requested your imaging first. Rose Wright FLOORLEADER IMG CT ORDERABL ES * POC, GLUCOSE (09/27/2024 7:51 AM EST) [facility] Glucometer, POC 194 65 - 199 mg/dL 09/27/2024 7:51 AM EST [facility] Comment:Supplemental ranges: <140 mg/dL before meals <180 mg/dL all other times of the day. Blood CAPILLARY BLOOD / Unknown 09/27/2024 7:51 AM EST 09/27/2024 7:51 AM EST Marko Dickson MD POINT OF CARE TEST O RDERABLES [facility] [place] [address] * (ABNORMAL) MRSA PCR Screen (09/27/2024 7:51 AM EST) [facility] MRSA PCR Detected(A ) 09/27/2024 11:56 AM EST [facility] Swab BOTH ANTERIOR NARES / Unknown Non Blood Collection / Unknown 09/27/2024 7:51 AM EST 09/27/2024 8:05 AM EST Narrative [facility] - 09/27/2024 11:56 AM EST This test was performed using the Xpert MRSA NxG test kit and is run on the [employer] GeneXpert Dx System. This test is cleared by the U.S. Food and Drug Administration for clinical use and its performance characteristics have been verified by the [facility] at [facility]. Marko Dickson MD MOLECULAR ORDERABLES [facility] [place] [place] [address] * Potassium (09/27/2024 7:51 AM EST) Potassium 3.5 3.5 - 5.0 mMol/L 09/27/2024 9:09 AM EST [facility] Blood VENOUS BLOOD SPECIMEN / Unknown Venipuncture / Unknown 09/27/2024 7:51 AM EST 09/27/2024 8:05 AM EST Marko Dickson MD CHEMISTRY ORDERABLES Performing Organization Address City/[facility]/ZIP Co de Phone Number [facility] [place] [place] [address] * (ABNORMAL) Potassium (09/27/2024 5:05 AM EST) Potassium 3.4(L) 3.5 - 5.0 mMol/L 09/27/2024 5:32 AM EST [facility] Blood VENOUS BLOOD SPECIMEN / Unknown Venipuncture / Unknown 09/27/2024 5:05 AM EST 09/27/2024 5:09 AM EST Marko Dickson MD CHEMISTRY ORDERABLES Performing Organization Address City/[facility]/ZIP Co de Phone Number [facility] [place] [place] [address] * POC, GLUCOSE (09/27/2024 3:52 AM EST) Glucometer, POC 199 65 - 199 mg/dL 09/27/2024 3:52 AM EST [facility] Comment:Supplemental ranges: <140 mg/dL before meals <180 mg/dL all other times of the day. Blood CAPILLARY BLOOD / Unknown 09/27/2024 3:52 AM EST 09/27/2024 3:52 AM EST Marko Dickson MD POINT OF CARE TEST O RDERABLES Performing Organization Address City/[facility]/ZIP Co de Phone Number [facility] [place] [place] [address] * (ABNORMAL) POC, GLUCOSE (09/27/2024 1:59 AM EST) Glucometer, POC 219(H) 65 - 199 mg/dL 09/27/2024 2:00 AM EST [facility] Comment:Supplemental ranges: <140 mg/dL before meals <180 mg/dL all other times of the day. Blood CAPILLARY BLOOD / Unknown 09/27/2024 1:59 AM EST 09/27/2024 2:00 AM EST Marko Dickson MD POINT OF CARE TEST O RDTYESHA Performing Organization Address City/[facility]/ZIP Co de Phone Number [facility] [place] [address] * (ABNORMAL) Magnesium (09/27/2024 12:01 AM EST) Magnesium 0.68(L) 0.69 - 1.07 mMol/L 09/27/2024 12:35 AM EST [facility] Blood VENOUS BLOOD SPECIMEN / Unknown Venipuncture / Unknown 09/27/2024 12:01 AM EST 09/27/2024 12:05 AM EST Hayley Torres MD CHEMISTRY ORDERABLES [facility] [place] [address] * (ABNORMAL) Basic Metabolic Panel (09/27/2024 12:01 [...] AM EST Hayley Torres MD CHEMISTRY ORDERABLES [facility] [place] [address] * (ABNORMAL) CBC (with Diff) (09/27/2024 12:01 [...] 0.04 x10(3)/mc L 09/27/2024 12:10 AM EST [facility] Blood VENOUS BLOOD SPECIMEN / Unknown Venipuncture / Unknown 09/27/2024 12:01 AM EST 09/27/2024 12:05 AM EST Hayley Torres MD HEMATOLOGY ORDERABLE S Performing Organization Address City/[facility]/ZIP Co de Phone Number [facility] [place] [place] [address] * (ABNORMAL) POC, GLUCOSE (09/26/2024 11:59 PM EST) Glucometer, POC 251(H) 65 - 199 mg/dL 09/26/2024 11:59 PM EST [facility] Comment:Supplemental ranges: <140 mg/dL before meals <180 mg/dL all other times of the day. Blood CAPILLARY BLOOD / Unknown 09/26/2024 11:59 PM EST 09/26/2024 11:59 PM EST Marko Dickson MD POINT OF CARE TEST Stephanie VO Performing Organization Address [facility]/ZIP Co de Phone Number [facility] [place] [address] * (ABNORMAL) POC, GLUCOSE (09/26/2024 7:34 PM EST) Glucometer, POC 204(H) 65 - 199 mg/dL 09/26/2024 7:34 PM EST [facility] Comment:Supplemental ranges: <140 mg/dL before meals <180 mg/dL all other times of the day. Blood CAPILLARY BLOOD / Unknown 09/26/2024 7:34 PM EST 09/26/2024 7:35 PM EST Marko Dickson MD POINT OF CARE TEST O GILDA [facility] [place] [address] * (ABNORMAL) Blood culture (09/26/2024 6:45 PM EST) Blood Culture Methicillin Resistant Staphylococcus aureus(Critical) 10/01/2024 6:58 AM EST [facility] Comment: isolated. Susceptibilities previously reported. Gram Stain Aerobic Bottle: Gram positive cocci in clusters(Critical ) 10/01/2024 6:58 AM EST [facility] Blood VENOUS BLOOD SPECIMEN / Unknown Venipuncture / Unknown 09/26/2024 6:45 PM EST 09/26/2024 6:48 PM EST Marko Dickson MD MICROBIOLOGY - BLOOD ORDERABLES [facility] [place] [address] * (ABNORMAL) Sonicated Tissue/Implant Culture (09/26/2024 5:16 PM EST) Sonicated Tissue/Implan t Culture Methicillin Resistant Staphylococcus aureus(A) VITEK 2 METHOD 09/30/2024 1:49 PM EST [facility] Comment: isolated from broth culture. Susceptibilities previously reported. Vascular Graft STRUCTURE OF LEFT LOWER LIMB / Unknown Non Blood Collection / Unknown 09/26/2024 5:16 PM EST 09/26/2024 5:45 PM EST Marko Dickson MD MICROBIOLOGY - GENER AL ORDERABLES Performing Organization Address City/[facility]/ZIP Co de Phone Number [facility] [place] [address] * Anaerobic Culture (09/26/2024 5:02 PM EST) Anaerobic Culture No anaerobic organisms isolated 09/30/2024 3:51 PM EST [facility] Abscess STRUCTURE OF LEFT KNEE REGION / Unknown Non Blood Collection / Unknown 09/26/2024 5:02 PM EST Comment:Left Below Knee popl iteal fluid Please perform Gram stain if not included in order Hayley Torres MD MICROBIOLOGY - GENER AL ORDERABLES [facility] [place] [address] * (ABNORMAL) Abscess/Wound Aspirate Culture, Aerobic Only (09/26/2024 5:02 PM EST) Abscess/Wound Aspirate Culture Many Methicillin Resistant Staphylococcus aureus(A) VITEK 2 METHOD 09/30/2024 1:37 PM EST [facility] Gram Stain Many neutrophils(A) 09/30/2024 1:37 PM EST [facility] Gram Stain Many Gram positive cocci(A) 09/30/2024 1:37 PM EST [facility] Abscess STRUCTURE OF LEFT KNEE [...] Torres MD MICROBIOLOGY - [place] [address] * Fungus culture (09/26/2024 5:02 PM EST) Fungus Culture No fungus isolated 10/24/2024 7:54 AM EST [facility] Abscess STRUCTURE OF LEFT KNEE REGION / Unknown Non Blood Collection / Unknown 09/26/2024 5:02 PM EST 09/26/2024 5:08 PM EST Comment:Left Below Knee popl iteal fluid Please perform Gram stain if not included in order Hayley Torres MD MICROBIOLOGY - GENER AL ORDERABLES Performing Organization Address [facility] Co de Phone Number [facility] [place] [address] * Anaerobic Culture (09/26/2024 4:50 PM EST) Anaerobic Culture No anaerobic organisms isolated 09/30/2024 3:51 PM EST [facility] Abscess LEFT INGUINAL REGION STRUCTURE / Unknown Non Blood Collection / Unknown 09/26/2024 4:50 PM EST Comment:Left Groin Fluid Hayley Torres MD MICROBIOLOGY - GENER AL ORDERABLES Performing Organization Address City/[facility] Co de Phone Number [facility] [place] [place] [address] * (ABNORMAL) Abscess/Wound Aspirate Culture, Aerobic Only (09/26/2024 4:50 PM EST) Abscess/Wound Aspirate Culture Many Methicillin Resistant Staphylococcus aureus(A) VITEK 2 METHOD 09/30/2024 1:36 PM EST [facility] Gram Stain Many neutrophils(A) 09/30/2024 1:36 PM EST [facility] Gram Stain Many Gram positive cocci(A) 09/30/2024 1:36 PM EST [facility] Abscess LEFT INGUINAL REGION STRUCTURE [...] - GENER AL ORDERABLES Performing Organization Address City/[facility]/ZIP Co de Phone Number [facility] [place] [address] * Fungus culture (09/26/2024 4:50 PM EST) Pathologist [facility] Fungus Culture No fungus isolated 10/24/2024 7:54 AM [facility] Abscess LEFT INGUINAL REGION STRUCTURE / Unknown Non Blood Collection / Unknown 09/26/2024 4:50 PM EST 09/26/2024 4:56 PM EST Comment:Left Groin Fluid Hayley Torres MD MICROBIOLOGY - GENER AL ORDERABLES Performing Organization Address [facility] Co de Phone Number [facility] [place] [place] [address] * (ABNORMAL) Blood Gas, Arterial POC (09/26/2024 4:43 PM EST) Pathologist [facility] pH, Arterial 7.38 7.35 - 7.45 09/27/2024 7:41 AM EST [facility] PCO2, Arterial 41 35 - [...] MD POINT OF CARE TEST O GILDA [facility] [place] [place] [address] * (ABNORMAL) POC, GLUCOSE (09/26/2024 4:29 PM EST) Glucometer, POC 213(H) 65 - 199 mg/dL 09/26/2024 4:30 PM EST [facility] Comment:Supplemental ranges: <140 mg/dL before meals <180 mg/dL all other times of the day. Blood CAPILLARY BLOOD / Unknown 09/26/2024 4:29 PM EST 09/26/2024 4:30 PM EST Marko Dickson MD POINT OF CARE TEST Stephanie VO Performing Organization Address [facility]/ZIP Co de Phone Number [facility] [place] [address] * (ABNORMAL) Blood Gas, Venous POC (09/26/2024 [...] 0.4 <=1.5 % 09/26/2024 3:30 PM EST [facility] Sodium, Venous 127(L) 135 - 145 mmol/L 09/26/2024 3:30 PM EST [facility] Potassium, Venous 3.3(L) 3.5 - 5.0 mmol/L 09/26/2024 3:30 PM EST [facility] Chloride, Venous 91(L) 98 - 107 mmol/L 09/26/2024 3:30 PM [facility] Glucose, Venous 259(H) 65 - 199 mg/dL 09/26/2024 3:30 PM EST [facility] Comment:Glucose Concentratio n >=200 mg/dL [...] MD POINT OF CARE TEST O RDERABLES [facility] [place] [address] * (ABNORMAL) Scan, Peripheral Blood (09/26/2024 2:39 PM EST) RBC Morphology Abnormal 09/26/2024 3:21 PM EST [facility] Platelet Estimate Normal Normal 09/26/2024 3:21 PM EST [facility] Microcyte 1-5 /HPF 09/26/2024 3:21 PM EST [facility] Platelet Clumps Present(A) (none) 3:21 PM EST [facility] WBC MORPHOLOGY See Comment(A) (none) 09/26/2024 3:21 PM EST [facility] Comment:Dohle BodiesToxic Gr anulation Blood VENOUS BLOOD SPECIMEN / Unknown Venipuncture / Unknown 09/26/2024 2:39 PM EST 09/26/2024 2:50 PM EST Marko Dickson MD HEMATOLOGY ORDERABLE S [facility] [place] [place] [address] * ABORH RECHECK (PATIENT HISTORY FOUND) (09/26/2024 2:39 PM EST) [facility] ABORH Recheck Progress Complete 09/26/2024 5:01 PM EST [facility] Blood VENOUS BLOOD SPECIMEN / Unknown Venipuncture / Unknown 09/26/2024 2:39 PM EST 09/26/2024 2:56 PM EST Marko Dickson MD BLOOD BANK LAB ORDER RANDELL [facility] [place] [place] [address] * (ABNORMAL) Hepatic Function Panel (09/26/2024 2:39 PM EST) [facility] Albumin 3.1(L) 3.2 - 5.2 g/dL 09/26/2024 4:23 PM EST [facility] Aspartate Aminotransferase 16 <=39 unit/L 09/26/2024 4:23 PM EST [facility] Alanine Aminotransferase 14 0 - 55 unit/L 09/26/2024 4:23 PM EST [facility] Alkaline Phosphatase 160(H) 40 - 130 unit/L 09/26/2024 4:23 PM EST [facility] Bilirubin, Total 0.4 <=1.3 mg/dL [...] PM EST Marko Dickson MD CHEMISTRY ORDERABLES [facility] [place] [place] [address] * (ABNORMAL) Basic Metabolic Panel (09/26/2024 2:39 [...] - 10.5 mg/dL 09/26/2024 4:32 PM EST [facility] Est Glomerular Filtration Rate - Male 121 mL/min/1. 73 m?? 09/26/2024 4:32 PM EST [facility] Comment: This patient's estimated GFR [...] PM EST Hayley Torres MD CHEMISTRY ORDERABLES [facility] [place] [id number] * (ABNORMAL) CBC (with Diff) (09/26/2024 2:39 PM EST) White Blood Cell 22.76(H) 4.00 - 9.50 x10(3)/mc L 09/26/2024 3:21 PM EST [facility] Red Blood Cell 4.20(L) 4.58 - 5.54 x10(6)/mc L 09/26/2024 3:21 PM [facility] Hemoglobin 12.3(L) 13.7 - 16.5 g/dL 09/26/2024 3:21 PM [facility] Hematocrit 35.0(L) 40.5 - 48.5 % 09/26/2024 3:21 PM EST [facility] Mean Cell Volume 83.3 82.9 [...] EST Hayley Torres MD HEMATOLOGY ORDERABLE S [facility] [place] [address] * Phosphorus (09/26/2024 2:39 PM EST) [facility] Phosphorus 3.2 2.5 - 4.5 mg/dL 09/26/2024 4:05 PM EST [facility] Blood VENOUS BLOOD SPECIMEN / Unknown Venipuncture / Unknown 09/26/2024 2:39 PM EST 09/26/2024 2:50 PM EST Marko Dickson MD CHEMISTRY ORDERABLES Performing Organization Address City/[facility]/ZIP Co de Phone Number [facility] [place] [address] * (ABNORMAL) Magnesium (09/26/2024 2:39 PM EST) [facility] Magnesium 0.65(L) 0.69 - 1.07 mMol/L 09/26/2024 4:05 PM EST [facility] Blood VENOUS BLOOD SPECIMEN / Unknown Venipuncture / Unknown 09/26/2024 2:39 PM EST 09/26/2024 2:50 PM EST Marko Dickson MD CHEMISTRY ORDERABLES Performing Organization Address City/[facility]/ZIP Co de Phone Number [facility] [place] [address] * Type and screen ([facility]/CGP/BABITA) (09/26/2024 2:39 PM EST) [facility] ABORH Type A POSITIVE 09/26/2024 3:45 PM EST [facility] PATIENT HISTORY Found 09/26/2024 3:45 PM EST [facility] Expires at [id number] on: 09/29/2024 09/26/2024 3:45 PM EST [facility] ANTIBODY SCREEN AUTOMATED Negative 09/26/2024 3:45 PM EST [facility] T&S only valid at [facility] 09/26/2024 3:45 PM EST [facility] Blood VENOUS BLOOD SPECIMEN / Unknown Venipuncture / Unknown 09/26/2024 2:39 PM EST 09/26/2024 2:56 PM EST Narrative [facility] - 09/26/2024 3:45 PM EST This Type and Screen result is only valid at the [facility] Marko Dickson MD BLOOD BANK LAB ORDER RANDELL Performing Organization Address City/[facility]/ZIP Co de Phone Number [facility] [place] [place] [address] * (ABNORMAL) Fibrinogen (09/26/2024 2:39 PM EST) Fibrinogen >1,000(H) 200 - 393 mg/dL 09/26/2024 3:09 PM EST [facility] Comment: A fibrinogen level >100 mg/dL is adequate for hemostasis in most patients without underlying bleeding disorders. Blood VENOUS BLOOD SPECIMEN / Unknown Venipuncture / Unknown 09/26/2024 2:39 PM EST 09/26/2024 2:50 PM EST Marko Dickson MD HEMATOLOGY ORDERABLE S Performing Organization Address City/[facility] Co de Phone Number [facility] [place] [place] [address] * APTT (09/26/2024 2:39 PM EST) Pathologist [facility] Partial Thromboplastin Time 36 25 - 37 sec 09/26/2024 3:09 PM EST [facility] Comment: The PTT is NOT appropriate for heparin monitoring. Use the Anti-Xa level for heparin monitoring (HEP UFH) or LMWH monitoring (HEP LMW). A PTT less than 37 seconds generally indicates adequate hemostasis. Blood VENOUS BLOOD SPECIMEN / Unknown Venipuncture / Unknown 09/26/2024 2:39 PM EST 09/26/2024 2:50 PM EST Marko Dickson MD HEMATOLOGY ORDERABLE S Performing Organization Address City/[facility]/ZIP Co de Phone Number [facility] [place] [place] [address] * (ABNORMAL) Prothrombin Time (09/26/2024 2:39 PM EST) [facility] Prothrombin Time 21.6(H) 9.4 - 12.5 sec 09/26/2024 3:09 PM EST [facility] International Normalization Ratio 1.9 <=4.9 09/26/2024 3:09 PM EST [facility] Comment: An INR < 2.0 [...] EST Marko Dickson MD HEMATOLOGY ORDERABLE S [facility] [place] [address] * (ABNORMAL) POC, GLUCOSE (09/26/2024 2:36 PM EST) [facility] Glucometer, POC 268(H) 65 - 199 mg/dL 09/26/2024 2:36 PM EST [facility] Comment:Supplemental ranges: <140 mg/dL before meals <180 mg/dL all other times of the day. Blood CAPILLARY BLOOD / Unknown 09/26/2024 2:36 PM EST 09/26/2024 2:36 PM EST Marko Dickson MD POINT OF CARE TEST O RDERABLES [facility] [place] [address] * (ABNORMAL) Blood culture (09/26/2024 2:22 PM EST) [facility] Blood Culture Methicillin Resistant Staphylococcus aureus(Critical) VITEK 2 METHOD 10/07/2024 7:40 AM EST [facility] Comment: detected by PCR Isolate saved. If future testing is required, contact the Microbiology Publications Manager. Gram Stain Aerobic Bottle: Gram positive cocci in clusters(Critical ) 10/07/2024 7:40 AM EST [facility] Blood VENOUS BLOOD SPECIMEN / [...] - BLOOD ORDERABLES Performing Organization Address City/State/[facility] Co de Phone Number [facility] [place] [place] [address] * Request For 2nd Read CT Lower Extremity (09/26/2024 1:50 PM EST) [place] WORKSTATION ID [id number] [facility] [...] please contact the health child day care center worker that requested your imaging first. ? Narrative 09/26/2024 3:01 PM EST EXAMINATION: REQUEST FOR 2ND READ CT LOWER EXTREMITY CLINICAL HISTORY: Pt s/p LLE femoral-below knee popliteal bypass with PTFE graft, c/f infection surrounding graft, en route to [facility] for possible vascular surgery intervention; Sending Institution [facility]; Date of exam 20240926; I believe [...] series 3, image 8 and 641, 592, 763, 982. No other rim-enhancing fluid collection is [...] c/f infection surrounding graft, en route to [facility] for possiblevascular surgery intervention; Sending Institution [facility]; Date of exam [id number]; Ibelieve a [...] on series 3, image 8 and 641, 612,050, 452. No other rim-enhancing fluid collection is seen. [...] questions please contactthe health child day care center worker that requested your imaging first. Marko Dickson [...] RN)2116 (Given - Provider: Lauren Zavala RN) 06 (Given - Provider: Lauren Zavala [...] Navas RN) 0902 (Given - Provider: Jaja Dilalo RN)2022 (Given - Provider: Lauren Zavala, DAVID) [...] Routine documented in this encounter Care Teams Stock Preparation Supervisor Relationship Specialty Start Date End Date Charles Romero PA [address] [place] [address] PCP - General Internal Medicine 09/18/24 documented as of this encounter
--- OUTSIDE RECORDS SUMMARY | 2024-10-31 17:04 | XMS_ITS | Encounter Summary ---
Author Organization [facility] [place] [address] Care Team Providers Care Diesel Engine Fitter Name Role Phone Charles Romero Primary Care Provider + Reason for Visit * Auth/Cert (Routine) Specialty Diagnoses / Procedures Referred By William moses Referred To Contact Diagnoses Vascular graft infection, initial encounter Sepsis [A41.9] T82.7XXA Procedures EMERGENCY IPI Angel Gonsalez MD [facility] [place] [address] [facility] Referral ID Status Reason Start Date Expiration Date Visits Re quested Visits Authorized [id number] 1 1 Encounter Details Date Type Department Care Team (Late st Contact Info) Description 09/26/2024 3:53 PM EST Anesthesia Event [place] [address] Marco Santana MD [facility] [place] [address] Sigrid Chatman DO [facility] [place] [address] Anesthesia Record Procedure Summary Procedure Name Responsible [...] second toe; 10/06/24; 0942 07/19/24 0946 by lAan Tobias RN 10/06/24 0942 by Liana Mccormack RN PIV 08/01/24; 0637; mjpz-mfq-szbpso catheter system; 20 gauge; metacarpal vein (top [...] by Pamela Eli RN PIV 09/26/24; 1200; atly-wik-nudvbr catheter system; 18 gauge; median cubital vein [...] monitoring, frequent blood gas measurement; Gio Christopher streetcar repairer; Sterile Prep, Sterile Gloves; 09/28/24; 0200 09/26/24 1606 by Jules Christopher, TECHNICAL SUPPORT ASSOCIATE 09/28/24 0200 by Mariya Shi RN PIV 09/26/24; 1620; sebk-qkj-vwqpkt catheter system; 14 gauge; median cubital vein (antecubital fossa), right; Ultrasound Guidance; Pat Esther; 10/02/24; 1000 09/26/24 1620 by Jules Christopher CRNA 10/02/24 1000 by Cyndi Castro RN Urethral Catheter 09/26/24; 1620; Surg wei longer than 2 hours, Physician order, Need for intraoperative urine output monitoring; Immobility without alternative; indwelling double lumen catheter; hydrophilic coated, latex; 14; inserted at [facility]; 1; 5; 10; none; drainage [...] drink = 0.6 oz pur e alcohol) [facility] Utilities Answer Date Recorded In the [...] Procedure Summary Date: 09/26/24 Room / Location: [facility] OR / [facility] MAIN OR Anesthesia Start: 155 Anesthesia Stop: 182 Procedure: EXCISION OF INFECTED GRAFT FROM LOWER EXTREMITY (WRVU 9.53) (Left: Groin) Diagnosis: (left infected femoral to below knee bypass graft) Surgeons: Hayley Torres MD Responsible Provider: Marco Santana MD Anesthesia Type: general ASA Status: 3 - Emergent All Anesthesia Providers: Anesthesiologist: Marco Santana MD; Jonnathan Hernandez MD TECHNICAL SUPPORT ASSOCIATE: Jules Christopher CRNA Vitals Value Taken Time [...] performed by Thony Garcia MD at [facility] MAIN OR ??? PRO BYPASS GRAFT OTHR, FEM-TIBIAL Left 08/01/2024 @BYPASS GRAFT, FEM-ANT TIBIAL, -POST TIBIAL, -PERONEAL, -DP W\ SYNTHETIC CONDUIT (WRVU 23.66) performed by Lisette Maldonado MD at [facility] MAIN OR ??? PRO CABG, ARTERY-VEIN, SINGLE 01/04/2012 @CABG, VENOUS & ARTERIAL GRAFT;SINGLE VEIN GRAFT performed by INNA TOVAR at [facility] MAIN OR ??? PRO ENDOSCOPY W/VIDEO-ASST VEIN HARVEST, CABG 01/04/2012 ENDOSCOPIC HARVEST VEIN(S) FOR CABG performed by INNA TOVAR at [facility] MAIN OR ??? VS ARTERIOGRAM LOWER EXTREMITY VASCULAR SURGERY 07/20/2024 VS Arteriogram Lower Extremity Vascular Surgery 07/20/2024 Taylor Ruiz MD [facility] INTERVENTIONL RAD Social History Tobacco [...] consented to blood products. Plan discussed with TECHNICAL SUPPORT ASSOCIATE. Anesthesia Screening documented in this encounter Plan of Treatment Upcoming Encounters Date Type Department Care Team (Late st Contact Info) Description 11/09/2024 1:30 PM EST Office [place] [phone] Isabela Hayward, RESHMA [facility] [place] [address] 11/10/2024 10:00 AM EST Office [place] [phone] Dai Whitman APRN 11/21/2024 2:15 PM EST Office [place] [phone] Dayanara Grover MD [facility] [place] [address] documented as of this encounter Visit Diagnoses [...] over 4 Hours, Warning Vesicant/Irritant Medication Per heart specialist labeling, do not administer or Y-site with [...] mL/hr documented in this encounter Care Teams Diesel Engine Fitter Relationship Specialty Start Date End Date Charles Romero PA [address] [place] [address] PCP - General Internal Medicine 09/18/24 documented as of this encounter
--- OUTSIDE RECORDS SUMMARY | 2024-10-31 17:05 | XMS_ITS | Encounter Summary ---
Author Organization [facility] Address [facility] [place] [address] Care Team Providers Care Midlevel Provider Name Role Phone Charles Romero Primary Care Provider + Encounter Details Date Type Department Care Team (Late st Contact Info) Description 09/26/2024 Telephone [place] [address] Marko Dickson MD [facility] [place] [address] Social History Tobacco Use Types Packs/Day Years Used Date Smoking Tobacco: Every Day Cigarettes 1 25 Started: 12/28/1986; Last attempted to quit: 12/28/2011 Smokeless Tobacco: Never Alcohol Use Standard Drinks/Week Comments No 0 (1 standard drink = 0.6 oz pur e alcohol) [facility] Utilities Answer Date Recorded In the past 12 months has [employer] electric, gas, oil, or water [employer] threatened to shut off services in your [...] IV abx and I accepted here at [facility], advised to place in ICU and likely would need debridement/washout upon arrival, maintain npo status documented in this encounter Plan of Treatment Upcoming Encounters Date Type Department Care Team (Late st Contact Info) Description 11/09/2024 1:30 PM EST Office [place] [address] Isabela Hayward APRN [facility] [place] [address] 11/10/2024 10:00 AM EST Office [place] [address] Dai Whitman, METALSMITH HELPER 11/21/2024 2:15 PM EST Office [place] [address] Dayanara Grover MD [facility] [place] [address] documented as of this encounter Visit Diagnoses Not on filedocumented in this encounter Care Teams Midlevel Provider Relationship Specialty Start Date End Date Charles Romero PA [facility] [place] [address] PCP - General Internal Medicine 09/18/24 documented as of this encounter
--- OUTSIDE RECORDS SUMMARY | 2024-10-31 17:05 | XMS_ITS | Encounter Summary ---
Author Organization [facility] [place] [address] Care Team Providers Care Sequins Stringer Name Role Phone Charles Romero Primary Care [...] APRN [facility] [place] [address] [facility] Cardiology [address] [place] [phone] Referral ID Status Reason Start Date Expiration Date V isits Requested Visits Authorized [id number] Closed Consult, Test & Treat 08/28/2024 08/28/2025 1 1 Encounter Details Date Type Department Care Team (Late st Contact Info) Description 09/18/2024 11:20 AM EST Office Visit Cardiology at [address] [phone] Josh Olivarez MD [facility] [place] [address] Coronary artery disease, unspecified vessel or lesion type, unspecified whether angina present, unspecified whether mcgrath or transplanted heart Social History Tobacco Use Types Packs/Day Years Used Date Smoking Tobacco: Every Day Cigarettes 12 02 Started: 12/28/1986; Last attempted to quit: 12/28/2011 Smokeless Tobacco: Never Alcohol Use Standard Drinks/Week Comments No 0 (1 standard drink = 0.6 oz pur e alcohol) [facility] Utilities Answer Date Recorded In the past 12 months has th e [employer], gas, oil, or water [employer] threatened to shut off services in your [...] from the original note were not included. [facility] [place] [address] [place] [address] CARDIOLOGY OUTPATIENT PROGRESS NOTE PRIMARY CARE PROVIDER: JUSTIN Roberson REFERRING PROVIDER: Vibha Benson PROBLEM LIST: Patient Active Problem List Diagnosis 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 (SVG to PDA closed 08/2013) NSTEMI 12-29-2011 Cath - LAD, PDA and Distal Circ Disease CABG 01-04-2012 (MARTINEZ-LAD, SVG-PDA) Cardiac Cath 08/21/13: [patent MARTINEZ to LAD, occlusion of SVG to RPDA and occlusion of mcgrath RCA. LVEDP 21. PCI of mid and [...] up with PCP or Dr Bird in [facility] Obesity Weight is 130.5 Kg on 08/22/13 [...] Abdomen: Nondistended. Soft. Nontender. Extremities: No edema. RADIO INTERFERENCE INVESTIGATOR: Normal mentation. Psych: Appropriate affect. Labs: Lab [...] PM EST Office [place] [address] Isabela Hayward, PRESIDENT AND CEO [facility] [place] [address] 11/10/2024 10:00 AM EST Office [place] [address] Dai Whitman APRN 11/21/2024 2:15 PM EST Office [place] [address] Dayanara Grover MD [facility] [place] [address] Scheduled Referrals Name Type Priority Associated Diagnoses Order Schedule Referral to Cardiology Outpatient Referral Urgent Critical limb ischemia of left lower extremity Ordered: 08/28/2024 documented as of this encounter Visit Diagnoses Diagnosis Coronary artery disease, unspecified vessel or lesion type, unspecified whether angina present, unspecified whether mcgrath or transplanted heart documented in this encounter Care Teams Sequins Stringer Relationship Specialty Start Date End Date Charles Romero [place] [place] [address] PCP - General Internal Medicine 09/18/24 documented as of this encounter
--- OUTSIDE RECORDS SUMMARY | 2024-10-31 17:05 | XMS_ITS | Encounter Summary ---
Author Organization [facility] [place] [address] Care Team Providers Care Boiler House Supervisor Name Role Phone Charles Romero Primary Care Provider + Encounter Details Date Type Department Care Team (Late st Contact Info) Description 09/25/2024 Telephone [place] [phone] Fallon Lemus, RN Social History Tobacco Use Types Packs/Day Years Used Date Smoking Tobacco: Every Day Cigarettes 12 02 Started: 12/28/1986; Last attempted to quit: 12/28/2011 Smokeless Tobacco: Never Alcohol Use Standard Drinks/Week Comments No 0 (1 standard drink = 0.6 oz pur e alcohol) [facility] Utilities Answer Date Recorded In the past 12 months has e [employer], gas, oil, or water [employer] threatened to shut off services in your [...] nurse thought Lux went to [facility], but according to Lux, he came to . No records from either emergency room are noted in patient chart. Rebeca was advised that Lux should go to the emergency room for evaluation. Rebeca verbalized agreement and understanding. DAVID Viveroselectromechanical engineer [facility] documented in this encounter Plan of Treatment Upcoming Encounters Date Type Department Care Team (Late st Contact Info) Description 11/09/2024 1:30 PM EST Office [place] [address] Isabela Hayward, CASCADE OPERATOR [facility] [place] [address] 11/10/2024 10:00 AM EST Office Visit Vascular Surgery at [place] [phone] Dai Whitman, RESHMA 11/21/2024 2:15 PM EST Office [place] [phone] Dayanara Grover MD [facility] [place] [address] documented as of this encounter Visit Diagnoses Not on filedocumented in this encounter Care Teams Boiler House Supervisor Relationship Specialty Start Date End Date Charles Romero PA [facility] [place] [address] PCP - General Internal Medicine 09/18/24 documented as of this encounter
--- OUTSIDE RECORDS SUMMARY | 2024-10-31 17:05 | XMS_ITS | Encounter Summary ---
Author Organization [place] [address] Care Team Providers Care Infertility Medical Assistant Name Role Phone Charles Romero Primary Care Provider + Encounter Details Date Type Department Care Team (Late st Contact Info) Description 09/21/2024 Telephone [place] [phone] Lovely Huitron, RN Social History Tobacco Use Types Packs/Day Years Used Date Smoking Tobacco: Every Day Cigarettes 1 25 Started: 12/28/1986; Last attempted to quit: 12/28/2011 Smokeless Tobacco: Never Alcohol Use Standard Drinks/Week Comments No 0 (1 standard drink = 0.6 oz pur e alcohol) [facility] Utilities Answer Date Recorded In the past 12 months has e [employer], gas, oil, or water [employer] threatened to shut off services in your [...] Pt reported that he went to the [facility] emergency room yesterday for the aching [...] PM EST Office [place] [phone] Isabela Hayward, SPORTS PHYSIOLOGIST [facility] [place] [address] 11/10/2024 10:00 AM EST Office Visit Vascular Surgery at [place] [phone] Dai Whitman, RESHMA 11/21/2024 2:15 PM EST Office [place] [phone] Dayanara Grover MD [facility] [place] [address] documented as of this encounter Visit Diagnoses Not on filedocumented in this encounter Care Teams Infertility Medical Assistant Relationship Specialty Start Date End Date Charles Romero [place] [address] PCP - General Internal Medicine 09/18/24 documented as of this encounter
--- OUTSIDE RECORDS SUMMARY | 2024-10-31 17:05 | XMS_ITS | Encounter Summary ---
Author Organization [facility] [place] [address] Care Team Providers Care Elevator Technician Name Role Phone Charles Romero Primary Care Provider + Reason for Visit * Auth/Cert (Routine) Specialty Diagnoses / Procedures Referred By William moses Referred To Contact Diagnoses Vascular graft infection, initial encounter Sepsis [A41.9] T82.7XXA Procedures EMERGENCY IPI Angel Gonsalez MD [facility] [place] [address] [facility] Referral ID Status Reason Start Date Expiration Date Visits Re quested Visits Authorized [id number] 1 1 Encounter Details Date Type Department Care Team (Late st Contact Info) Description 09/26/2024 3:22 PM EST - 09/26/2024 6:45 PM EST Surgery [place] [address] Hayley Torres MD [facility] [place] [address] EXCISION OF INFECTED GRAFT FROM LOWER EXTREMITY (WRVU 9.53) Social History Tobacco Use Types Packs/Day Years Used Date Smoking Tobacco: Every Day Cigarettes 1 25 Started: 12/28/1986; Last attempted to quit: 12/28/2011 Smokeless Tobacco: Never Alcohol Use Standard Drinks/Week Comments No 0 (1 standard drink = 0.6 oz pur e alcohol) [facility] Utilities Answer Date Recorded In the past [...] any time in the past 12 m [facility], were you homeless or living [...] Operations/Major Procedures: 09/26/24: Explant of infected LEFT [employer] to below-knee popliteal artery PTFE bypass graft [...] 2nd toe amputation who was transferred from [facility] given concern for infected left [...] pericardial patch and PTFE willard over the [employer] was unincorporated. - Resection of prior femoral [...] Sartorius flap healthy and starting to adhere. Aurora drains removed with replacement of 15 Fr [...] juice or regular (not diet) soda 6 SetJams small box of raisins 4 glucose tablets [...] 2 tablespoons of dried fruit. Milk and iu-nbxsr-ukxlc yogurt have 15 grams of carbs in a serving. A serving is 1 cup of milk or 3/4 cup (6 oz) of ln-pzkfp-izqwg yogurt. Starchy vegetables have 15 grams of [...] was scheduled for a f/u nutrition evaluation. Mop Handle Assembler met pt at bedside. Pt sharedthat his [...] Based on current findings- home (sister & ibyopnw-qg-xos's home) Consult Recommendations: No other consults recommended [...] Loss: None Karolyn Hudson MD Vascular Surgery, 8112 10/09/24 Important Studies and Lab Data: Labs: [...] 05/29/2024, no significant changes. Procedure Limited - 11351. Doppler - 04821. Color Doppler - 82930. Suboptimal quality. This study is limited because [...] on series 3, image 8 and 641, 482, 321, 652. No other rim-enhancing fluid collection is [...] wedged between the vastus medialis and adductor Marshall muscle. This tracks into the popliteal fossa [...] [facility] Arrive at: Home [phone] To view instructions for your video visit, click here, or visit this website: [email or web address] If you have not previously downloaded the [facility] patient portal software, Naymit, please do so by clicking one of the links below or searching in your device's lobito store. [employer] devices 11/09/2024 1:30 PM Isabela Hayward APRN Infectious Disease at [facility] Arrive at: Farm Tractor Operator Area [phone] 11/21/2024 2:15 PM Dayanara Grover MD Endocrinology at [facility] Arrive at: Farm Tractor Operator Area 3A [phone] Future Orders Complete By Expires CBC (with Diff) [[id number] Custom] 10/17/2024 12/11/2024 Process Instructions: INCLUDES: WBC, RBC, Hgb, Hct, Platelets, RBC Indices and Differential Scheduling Instructions: Comments: Questions: OPAT: Order / Recommendation for Post Discharge IV Antibiotic Management [TLU938 CPT(R)] As directed Process Instructions: If no progress note charted, please enter Clinical details in comments. Scheduling Instructions: Comments: - If this order was signed greater than 72 hours prior to [facility] discharge, please call to confirm the accuracy of this order. Please Fax all results to: OPAT Program Infectious Disease Section [facility], [place] [address] FAX: - After hours, please contact the Infectious Disease Physician adon at . - Line care instructions - see flush/heparin orders. Facilities may follow organizational policies/practices regarding heparin. - [facility] for medication administration/patient support assistant and catheter care/maintenance authorized. - CVC/PICC Dressing Change weekly and PRN Please use CHG or Bio Patch RN: Please care for PICC line including dressing changes weekly and prn. Please draw labs every Wednesday and PRN and [facility] at [phone]. Please draw labs off PICC line. [facility]. Please RN visit for IV ABX teaching and ongoing assessment. Residential for Medication Administration/Hookup and catheter care/maintenance: - [...] Amaya Hernandez MD Referral for Outpatient Antibiotics [JAC2927 CPT(R)] As directed Process Instructions: Scheduling Instructions: [...] admission to Home Health. [address] [place] [address] Phone Number: [phone] (home) Date of : 1975 Inpatient DOCUMENTATION FOR VNA SERVICES (INCLUDING THOSE PATIENTS WITH MEDICARE COVERAGE REQUIRING HOME VNA SERVICES AND/OR HOSPICE SERVICES) PATIENT'S LOCATION: Geovanna Dixon Jr. [address] [place] [address] [phone] (home) Cell: Telephone Information: Senior Wind Energy Consultant's Name: Geovanna In discussion with the attending physician, it is certified that this patient is under their care and that they, or a Nurse Practitioner, Clinical Nurse specialist or Physician Emergency Vehicle Technician who is working directly with them, had [...] for managing ADLs. HOME HEALTH CARE AGENCY: [facility]. [address] [place] [address] START OF CARE: within 24-48 hours of discharge Patient has Medicare Please note that any additional orders needs or changes will need to be obtained from this patient's PCP: JUSTIN Roberson [address] [facility] [address] . All VNA agencies which cover the area of patient's residence have been reviewed, either verbally or in writing, andpatient/family have chosen the home health care agency noted. Questions: Disciplines Requested: Nursing Physical Therapy Occupational Therapy Recurring Lab Work Interval Expires CBC (with Diff) [[id number] Custom] Once a week until 12/10/2024 12/10/2024 [...] For any problems or questions please call [phone] For issues on weeknights after 5pm and weekends please call [phone] and ask for the Vascular Fellow adon. Discharge Medications: Your Medications New Medications Dose [...] - See Instructions). FLUSH PROTOCOL WITH MEDICATIONS ([facility]): Before med infusion: flush with [...] - See Instructions). FLUSH PROTOCOL WITH MEDICATIONS ([facility]): Before med infusion: flush with [...] For any problems or questions please call [phone] For issues on weeknights after 5pm and weekends please call [phone] and ask for the Vascular Fellow adon. documented in this encounter Discharge Instructions * [...] 2 tablespoons of dried fruit. Milk and eb-fulny-hjcje yogurt have 15 grams of carbs in a serving. A serving is 1 cup of milk or 3/4 cup (6 oz) of wy-zqtes-ukzib yogurt. Starchy vegetables have 15 grams of [...] For any problems or questions please call [phone] For issues on weeknights after 5pm and weekends please call [phone] and ask for the Vascular Fellow adon. documented in this encounter Medications at Time [...] - See Instructions). FLUSH PROTOCOL WITH MEDICATIONS ([facility]): Before med infusion: flush with [...] - See Instructions). FLUSH PROTOCOL WITH MEDICATIONS ([facility]): Before med infusion: flush with [...] to contact. Reviewed roles and responsibilities of VOCATIONAL GUIDANCE COUNSELOR and infusion vendor. Contact information for ID and Vascular team/clinic, VOCATIONAL GUIDANCE COUNSELOR and infusion vendor given to pt. Discussed f/u appointments in ID 5C clinic, telephone and tele health. Pt verbalized understanding. All questions answered. IV & PO ABX Medications: Daptomycin 700mg IV daily Start/anticipated end date: 10/10/24-11/10/24 VOCATIONAL GUIDANCE COUNSELOR: [place] Infusion vendor: [employer] [facility] IV Access: 4 Fr. single lumen [...] 2 tablespoons of dried fruit. Milk and et-faozl-gmjoa yogurt have 15 grams of carbs in a serving. A serving is 1 cup of milk or 3/4 cup (6 oz) of uc-vqsva-ypxlb yogurt. Starchy vegetables have 15 grams of [...] unit including nursing and primary team. Fabián Schmtiz OT - 10/09/2024 3:33 PM EST Occupational Therapy Note Document Type: contact Total Minutes, Occupational Therapy: 8 Reason: Met with patient this afternoon, reports that he is independent in room with ADLs and has no concerns related to OT at this time. OT to complete orders. Pager: [phone] Fabián Burrows OT 10/09/2024 Occupational Therapy Rehabilitation [...] Loss: None Karolyn Hudson MD Vascular Surgery, 4904 10/09/24 * Terry Jimenez, PT - 10/09/2024 12:02 PM EST Physical Therapy Visit #2 Patient profile: Geovanna Dixon Jr. is a 49 y.o. male with a history of HTN, HLD, NSTEMI, CAD s/p CABG (12/2011), DM,obesity, PAD s/p L iliofem endart and L fem-BK pop bypass and L 2nd toe amputation who was transferred from [facility], 09/26/24 given concern for infected left fem-BK popliteal PTFE bypass. He is now s/p an explant of an infected left femoral-below knee popliteal artery bypass graft (09/26), I/D groin abscess (09/27), L GSV harvest, vein patch angioplasty, L [employer] and BK pop w/ sartorius flap L fem, I/D, 09/29 L sartorius flap revision, vac change. 10/03/24 NPO at [facility] for OR wound exploration. Wound vac off [...] He mentions he'll stay with sister and ndwnydl-bk-ohl upon DC. Pt resting in bed upon [...] up with R and down with L, tiey-vi-xwjl. Balance: Sitting: NORMAL- EOB unsupported good postural [...] Based on current findings- home (sister & sfgjdxk-xu-mtu's home) Consult Recommendations: No other consults recommended [...] 15 (TE-F) minutes TERRY JIMENEZ PT Pager: [phone] Physical Therapy Inpatient Rehabilitation Department * María Carranza, [employer] - 10/09/2024 11:14 AM EST Images from the original note were not included. Vascular Surgery Progress Note Geovanna Dixon Jr. is a 49 y.o. male with history of HTN, HLD, NSTEMI, CAD s/p CABG (12/2011), DM, obesity, PAD s/p L iliofem endart and L fem-BK pop bypass and L 2nd toe amputation who was transferred from [facility] given concern for infected left [...] Procedure Component Value - Date/Time Blood culture [[id number]] (Abnormal) (Susceptibility) Collected: 09/26/24 1422 Lab Status: Edited Result - FINAL Specimen: Blood, Venous Updated: 10/07/24 0740 Blood Culture Methicillin Resistant Staphylococcus aureus Comment: detected by PCR Isolate saved. If future testing is required, contact the Microbiology Tube Puller. Gram Stain Aerobic Bottle: Gram positive cocci in clusters Susceptibility Methicillin Resistant Staphylococcus aureus MINIMUM INHIBITORY CONCENTRATION VITEK 2 METHOD Clindamycin Resistant Daptomycin Susceptible Gentamicin Susceptible [1] Linezolid Susceptible Oxacillin Resistant Trimethoprim/Sulfa Susceptible Vancomycin Susceptible [1] Gentamicin is not appropriate for monotherapy for gram-positive infections. AFB culture [[id number]] Collected: 09/27/24 1654 Lab Status: Preliminary result Specimen: Tissue from Thigh, Left Updated: 10/05/24 1201 Acid Fast Bacilli Culture No acid fast bacilli isolated at 1 week. Acid Fast Stain No acid fast bacilli seen Blood culture [[id number]] Collected: 09/29/242123 Lab Status: Final result Specimen: Blood, Venous Updated: 10/04/24 2301 Blood Culture No growth at 120 hours Blood culture [[id number]] Collected: 09/29/242123 Lab Status: Final result Specimen: Blood, Venous Updated: 10/04/24 2301 Blood Culture No growth at 120 hours AFB culture [[id number]] Collected: 09/26/24 1702 Lab Status: Preliminary result Specimen: Abscess from Knee, Left Updated: 10/04/24 1201 Acid Fast Bacilli Culture No acid fast bacilli isolated at 1 week. Acid Fast Stain No acid fast bacilli seen Blood culture [[id number]] Collected: 09/28/24 1749 Lab Status: Final result [...] 2nd toe amputation who was transferred from [facility] given concern for infected left fem-BK popliteal PTFE bypass. He is now s/p an explantof an infected left femoral-below knee popliteal artery bypass graft (09/26), I/D groin abscess (), L GSV harvest, vein patch angioplasty, L [employer] and BK pop w/ sartorius flap L fem, I/D, 09/29 L sartorius flap revision, vac change. 10/09/24: Progressing well post surgically. Will pull medial thigh drain today, retain sartorius flap drain along with wound vac x 3 sponges ([facility] for home vac) [...] 2nd toe amputation who was transferred from [facility] given concern for infected left [...] Procedure Component Value - Date/Time Blood culture [[id number]] (Abnormal) (Susceptibility) Collected: 09/26/24 1422 Lab Status: Edited Result - FINAL Specimen: Blood, Venous Updated: 10/07/24 0740 Blood Culture Methicillin Resistant Staphylococcus aureus Comment: detected by PCR Isolate saved. If future testing is required, contact the Microbiology Tube Puller. Gram Stain Aerobic Bottle: Gram positive cocci in clusters Susceptibility Methicillin Resistant Staphylococcus aureus MINIMUM INHIBITORY CONCENTRATION VITEK 2 METHOD Clindamycin Resistant Daptomycin Susceptible Gentamicin Susceptible [1] Linezolid Susceptible Oxacillin Resistant Trimethoprim/Sulfa Susceptible Vancomycin Susceptible [1] Gentamicin is not appropriate for monotherapy for gram-positive infections. AFB culture [[id number]] Collected: 09/27/24 165 Lab Status: Preliminary result Specimen: Tissue from Thigh, Left Updated: 10/05/24 1201 Acid Fast Bacilli Culture No acid fast bacilli isolated at 1 week. Acid Fast Stain No acid fast bacilli seen Blood culture [[id number]] Collected: 09/29/242123 Lab Status: Final result Specimen: Blood, Venous Updated: 10/04/24 2301 Blood Culture No growth at 120 hours Blood culture [[id number]] Collected: 09/29/242123 Lab Status: Final result Specimen: Blood, Venous Updated: 10/04/24 2301 Blood Culture No growth at 120 hours AFB culture [[id number]] Collected: 09/26/24 1702 Lab Status: Preliminary result Specimen: Abscess from Knee, Left Updated: 10/04/24 1201 Acid Fast Bacilli Culture No acid fast bacilli isolated at 1 week. Acid Fast Stain No acid fast bacilli seen Blood culture [[id number]] Collected: 09/28/24 1749 Lab Status: Final result Specimen: Blood, Venous Updated: 10/03/24 1901 Blood Culture No growth at 120 hours Blood culture [[id number]] (Abnormal) Collected: 09/27/24 2133 Lab Status: Final result Specimen: Blood, Venous Updated: 10/02/24 0804 Blood Culture Methicillin Resistant Staphylococcus aureus Comment: Susceptibilities previously reported. Gram Stain Aerobic Bottle: Gram positive cocci in clusters Tissue Culture, Aerobic & Anaerobic [[id number]] Collected: 09/27/24 165 Lab Status: Final result Specimen: Tissue from Thigh, Left Updated: 10/01/24 1554 Narrative: The following orders were created for panel order Tissue Culture, Aerobic & Anaerobic. Procedure Abnormality Status --------- ------ Tissue Culture, Aerobic ...[[id number]] Anaerobic Culture[[id number]] Final result Please view results for these tests on the individual orders. Anaerobic Culture [[id number]] Collected: 09/27/241653 Lab Status: Final result Specimen: Tissue from Thigh, Left Updated: 10/01/24 1554 Anaerobic Culture No anaerobic organisms isolated Tissue Culture, Aerobic Only [[id number]] (Abnormal) (Susceptibility) Collected: 09/27/241653 Lab Status: Final [...] 2nd toe amputation who was transferred from [facility] given concern for infected left fem-BK popliteal PTFE bypass. He is now s/p an explantof an infected left femoral-below knee popliteal artery bypass graft (09/26), I/D groin abscess (), L GSV harvest, vein patch angioplasty, L [employer] and BK pop w/ sartorius flap L [...] 81mg daily Vibha Benson APRN 10/08/2024 Pager: [phone] * Vibha Benson APRN - 10/07/2024 8:52 AM EST Images from the original note were not included. Vascular Surgery Progress Note Geovanna Dixon Jr. is a 49 y.o. male with history of HTN, HLD, NSTEMI, CAD s/p CABG (12/2011), DM, obesity, PAD s/p L iliofem endart and L fem-BK pop bypass and L 2nd toe amputation who was transferred from [facility] given concern for infected left [...] Procedure Component Value - Date/Time Blood culture [[id number]] (Abnormal) (Susceptibility) Collected: 09/26/24 1422 Lab Status: Edited Result - FINAL Specimen: Blood, Venous Updated: 10/07/24 0740 Blood Culture Methicillin Resistant Staphylococcus aureus Comment: detected by PCR Isolate saved. If future testing is required, contact the Microbiology Tube Puller. Gram Stain Aerobic Bottle: Gram positive cocci in clusters Susceptibility Methicillin Resistant Staphylococcus aureus MINIMUM INHIBITORY CONCENTRATION VITEK 2 METHOD Clindamycin Resistant Daptomycin Susceptible Gentamicin Susceptible [1] Linezolid Susceptible Oxacillin Resistant Trimethoprim/Sulfa Susceptible Vancomycin Susceptible [1] Gentamicin is not appropriate for monotherapy for gram-positive infections. AFB culture [[id number]] Collected: 09/27/24 165 Lab Status: Preliminary result Specimen: Tissue from Thigh, Left Updated: 10/05/24 1201 Acid Fast Bacilli Culture No acid fast bacilli isolated at 1 week. Acid Fast Stain No acid fast bacilli seen Blood culture [[id number]] Collected: 09/29/242123 Lab Status: Final result Specimen: Blood, Venous Updated: 10/04/24 2301 Blood Culture No growth at 120 hours Blood culture [[id number]] Collected: 09/29/242123 Lab Status: Final result Specimen: Blood, Venous Updated: 10/04/24 2301 Blood Culture No growth at 120 hours AFB culture [[id number]] Collected: 09/26/24 1702 Lab Status: Preliminary result Specimen: Abscess from Knee, Left Updated: 10/04/24 1201 Acid Fast Bacilli Culture No acid fast bacilli isolated at 1 week. Acid Fast Stain No acid fast bacilli seen Blood culture [[id number]] Collected: 09/28/24 1749 Lab Status: Final result Specimen: Blood, Venous Updated: 10/03/24 1901 Blood Culture No growth at 120 hours Blood culture [[id number]] (Abnormal) Collected: 09/27/24 2133 Lab Status: Final result Specimen: Blood, Venous Updated: 10/02/24 0804 Blood Culture Methicillin Resistant Staphylococcus aureus Comment: Susceptibilities previously reported. Gram Stain Aerobic Bottle: Gram positive cocci in clusters Tissue Culture, Aerobic & Anaerobic [[id number]] Collected: 09/27/24 165 Lab Status: Final result Specimen: Tissue from Thigh, Left Updated: 10/01/24 1554 Narrative: The following orders were created for panel order Tissue Culture, Aerobic & Anaerobic. Procedure Abnormality Status --------- ------ Tissue Culture, Aerobic ...[[id number]] Anaerobic Culture[[id number]] Final result Please view results for these tests on the individual orders. Anaerobic Culture [[id number]] Collected: 09/27/24 165 Lab Status: Final result Specimen: Tissue from Thigh, Left Updated: 10/01/24 155 Anaerobic Culture No anaerobic organisms isolated Tissue Culture, Aerobic Only [[id number]] (Abnormal) (Susceptibility) Collected: 09/27/24 165 Lab Status: [...] is considered susceptible to doxycycline. Blood culture [[id number]] (Abnormal) Collected: 09/26/24 1845 Lab Status: Final result Specimen: Blood, Venous Updated: 10/01/24 0658 Blood Culture Methicillin Resistant Staphylococcus aureus Comment: isolated. Susceptibilities previously reported. Gram Stain Aerobic Bottle: Gram positive cocci in clusters Abscess/Wound Aspirate Culture, Aerobic & Anaerobic [[id number]] (Abnormal) Collected: 09/26/241649 Lab Status: Final result Specimen: Abscess from Groin, Left Updated: 09/30/24 155 Narrative: The following orders were created for panel order Abscess/Wound Aspirate Culture, Aerobic & Anaerobic. Procedure Abnormality Status --------- ------ Abscess/Wound Aspirate C...[[id number]] Abnormal Final result Anaerobic Culture[[id number]] Final result Please view results for these tests on the individual orders. Anaerobic Culture [[id number]] Collected: 09/26/24 165 Lab Status: Final result Specimen: Abscess from Groin, Left Updated: 09/30/24 1551 Anaerobic Culture No anaerobic organisms isolated Abscess/Wound Aspirate Culture, Aerobic & Anaerobic [[id number]] (Abnormal) Collected: 09/26/24 1702 Lab Status: Final result Specimen: Abscess from Knee, Left Updated: 09/30/24 1551 Narrative: The following orders were created for panel order Abscess/Wound Aspirate Culture, Aerobic & Anaerobic. Procedure Abnormality Status --------- ------ Abscess/Wound Aspirate C...[[id number]] Abnormal Final result Anaerobic Culture[[id number]] Final result Please view results for these tests on the individual orders. Anaerobic Culture [[id number]] Collected: 09/26/24 1702 Lab Status: Final result Specimen: Abscess from Knee, Left Updated: 09/30/24 1551 Anaerobic Culture No anaerobic organisms isolated Sonicated Tissue/Implant Culture [[id number]] (Abnormal) Collected: 09/26/24 1716 Lab Status: Final result Specimen: Vascular Graft from Leg, Left Updated: 09/30/24 1349 Sonicated Tissue/Implant Culture Methicillin Resistant Staphylococcus aureus Comment: isolated from broth culture. Susceptibilities previously reported. Abscess/Wound Aspirate Culture, Aerobic Only [[id number]] (Abnormal) (Susceptibility) Collected: 09/26/24 1702 Lab Status: [...] to doxycycline. Abscess/Wound Aspirate Culture, Aerobic Only [[id number]] (Abnormal) (Susceptibility) Collected: 09/26/24 1650 Lab Status: [...] 2nd toe amputation who was transferred from [facility] given concern for infected left fem-BK popliteal PTFE bypass. He is now s/p an explantof an infected left femoral-below knee popliteal artery bypass graft (09/26), I/D groin abscess (), L GSV harvest, vein patch angioplasty, L [employer] and BK pop w/ sartorius flap L [...] 81mg daily Vibha Benson APRN 10/07/2024 Pager: [phone] * Karina-Jessica Mcrae, PT - 10/06/2024 3:21 PM EST 10/06/24 1513 Evaluation & Treatment Document Type contact Comment, [...] 2nd toe amputation who was transferred from [facility] given concern for infected left [...] Procedure Component Value - Date/Time AFB culture [[id number]] Collected: 09/27/241653 Lab Status: Preliminary result Specimen: Tissue from Thigh, Left Updated: 10/05/24 1201 Acid Fast Bacilli Culture No acid fast bacilli isolated at 1 week. Acid Fast Stain No acid fast bacilli seen Blood culture [[id number]] Collected: 09/29/242123 Lab Status: Final result Specimen: Blood, Venous Updated: 10/04/24 2301 Blood Culture No growth at 120 hours Blood culture [[id number]] Collected: 09/29/242123 Lab Status: Final result Specimen: Blood, Venous Updated: 10/04/24 2301 Blood Culture No growth at 120 hours AFB culture [[id number]] Collected: 09/26/24 170 Lab Status: Preliminary result Specimen: Abscess from Knee, Left Updated: 10/04/24 1201 Acid Fast Bacilli Culture No acid fast bacilli isolated at 1 week. Acid Fast Stain No acid fast bacilli seen Blood culture [[id number]] Collected: 09/28/24 1749 Lab Status: Final result Specimen: Blood, Venous Updated: 10/03/24 1901 Blood Culture No growth at 120 hours Blood culture [[id number]] (Abnormal) Collected: 09/27/242132 Lab Status: Final result Specimen: Blood, Venous Updated: 10/02/24 0804 Blood Culture Methicillin Resistant Staphylococcus aureus Comment: Susceptibilities previously reported. Gram Stain Aerobic Bottle: Gram positive cocci in clusters Tissue Culture, Aerobic & Anaerobic [[id number]] Collected: 09/27/241653 Lab Status: Final result Specimen: Tissue from Thigh, Left Updated: 10/01/24 1554 Narrative: The following orders were created for panel order Tissue Culture, Aerobic & Anaerobic. Procedure Abnormality Status --------- ------ Tissue Culture, Aerobic ...[[id number]] Anaerobic Culture[[id number]] Final result Please view results for these tests on the individual orders. Anaerobic Culture [[id number]] Collected: 09/27/241653 Lab Status: Final result Specimen: Tissue from Thigh, Left Updated: 10/01/24 155 Anaerobic Culture No anaerobic organisms isolated Tissue Culture, Aerobic Only [[id number]] (Abnormal) (Susceptibility) Collected: 09/27/24 1654 Lab Status: [...] is considered susceptible to doxycycline. Blood culture [[id number]] (Abnormal) (Susceptibility)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 SKIN, SUBCU, MUSCLE, LOWER EXTREMITY (WRVU 2.7) performed by Anabel Finney MD at [facility] MAIN OR PRO DEBRIDEMENT MUSCLE AND FASCIA 20 SQ CM/< Left 10/02/2024 DEBRIDEMENT SKIN, SUBCU, MUSCLE, LOWER EXTREMITY (WRVU 2.7) performed by Hermila Mccormick MDat [facility] MAIN OR PRO DEBRIDEMENT SUBCUTANEOUS TISSUE 20 SQCM/< Left 09/27/2024 DEBRIDEMENT SKIN AND SUBCU, LOWER EXTREMITY (WRVU 1.01) performed by Hayley Torres MD at [facility] MAIN OR PRO DRAIN LOWER LEG DEEP ABSC/HEMATOMA Left 09/26/2024 INCISION & DRAINAGE, LEG OR ANKLE, DEEP ABSCESS OR HEMATOMA (WRVU 5.23) performed by Hayley Torres MD at [facility] OR [facility] ENDOSCOPY W/VIDEO-ASST VEIN HARVEST, CABG 01/04/2012 ENDOSCOPIC HARVEST VEIN(S) FOR CABG performed by INNA TOVAR at [facility] MAIN OR PRO EXCISION, INFEC GRAFT, EXTREMITY Left 09/26/2024 EXCISION OF INFECTED GRAFT FROM LOWER EXTREMITY (WRVU 9.53) performed by Hayley Torres MD at [facility] OR PRO EXCISION, INFEC GRAFT, EXTREMITY Left 09/28/2024 EXCISION OF INFECTED GRAFT FROM LOWER EXTREMITY (WRVU 9.53) performed by Hayley Torres MD at [facility] MAIN OR PRO EXPLORATION NOT FOLLOWED BY SURG LOWER EXTREMITY ARTERY Left 09/29/2024 @EXPLORATION W\O SURGICAL REPAIR, FEMORAL ARTERY - JENNIFER (WRVU 7.5) performed by Anabel Finney MD at [facility] MAIN OR PRO FORM SKIN PEDICLE FLAP SCALP, ARM, LEG 09/28/2024 FLAP, PEDICLE,W OR W/O TRANSFER, LEGS (WRVU 10.12) performed by Hayley Torres MD at [facility] MAIN OR PRO I&D DEEP ABSCESS BURSA/HEMATOMA THIGH/KNEE REGION Left 09/26/2024 INCISION & DRAINAGE ABSCESS OR HEMATOMA, THIGH, KNEE SUPERFICIAL (WRVU 6.78) performed by Hayley Torres MD at [facility] MAIN OR PRO REVISION FEMORAL ANAST BPG GROIN OPEN W/NONAUTOG PATCH GRAFT Left 09/28/2024 REV. FEM. ANASTOMOSIS OF SYN. BYPASS GRAFT USING NONAUTOGENOUS PATCH ANGIOPLASTY-JENNIFER (WRVU 23.15) performed by Hayley Torres MD at [facility] MAIN OR PRO UNLISTED PROCEDURE VASCULAR SURGERY Left 09/28/2024 HARVEST SAPHENOUS VEIN (WRVU 13.24) performed by Hayley Torres MD at [facility] MAIN OR VS ARTERIOGRAM LOWER EXTREMITY VASCULAR SURGERY 07/20/2024 VS Arteriogram Lower Extremity Vascular Surgery 07/20/2024 Anabel Finney MD [facility] INTERVENTIONL RAD Active Non-Hospital Problems [...] outlined in thisevaluation. Time IN / OUT: 9913-7171 Total Time: 28 minutes; Low EV and TEF JESSICA RENAE, PT Pager: [phone] Physical Therapy Inpatient Rehabilitation Department * Rose [...] 2nd toe amputation who was transferred from [facility] given concern for infected left [...] not holding suction - Last Bowel Movement: (LEI SELLER) Objective: Temp: [36.4 ??C (97.5 ??F)-37.3 ??C [...] Procedure Component Value - Date/Time Blood culture [[id number]] Collected: 09/29/242123 Lab Status: Preliminary result Specimen: Blood, Venous Updated: 10/02/24 2300 Blood Culture No growth at 72 hours Blood culture [[id number]] Collected: 09/29/242123 Lab Status: Preliminary result Specimen: Blood, Venous Updated: 10/02/24 2300 Blood Culture No growth at 72 hours Blood culture [[id number]] Collected: 09/28/24 174 Lab Status: Preliminary result Specimen: Blood, Venous Updated: 10/02/24 1901 Blood Culture No growth at 96 hours Blood culture [[id number]] (Abnormal) Collected: 09/27/242132 Lab Status: Final result Specimen: Blood, Venous Updated: 10/02/24 0804 Blood Culture Methicillin Resistant Staphylococcus aureus Comment: Susceptibilities previously reported. Gram Stain Aerobic Bottle: Gram positive cocci in clusters Tissue Culture, Aerobic & Anaerobic [[id number]] Collected: 09/27/241653 Lab Status: Final result Specimen: Tissue from Thigh, Left Updated: 10/01/24 155 Narrative: The following orders were created for panel order Tissue Culture, Aerobic & Anaerobic. Procedure Abnormality Status --------- ------ Tissue Culture, Aerobic ...[[id number]] Anaerobic Culture[[id number]] Final result Please view results for these tests on the individual orders. Anaerobic Culture [[id number]] Collected: 09/27/241653 Lab Status: Final result Specimen: Tissue from Thigh, Left Updated: 10/01/24 155 Anaerobic Culture No anaerobic organisms isolated Tissue Culture, Aerobic Only [[id number]] (Abnormal) (Susceptibility) Collected: 09/27/241653 Lab Status: Final [...] is considered susceptible to doxycycline. Blood culture [[id number]] (Abnormal) (Susceptibility) Collected: 09/26/24 1422 Lab Status: Final result Specimen: Blood, Venous Updated: 10/01/24 0658 Blood Culture Methicillin Resistant Staphylococcus aureus Comment: detected by PCR Isolate saved. If future testing is required, contact the Microbiology Tube Puller. Gram Stain Aerobic Bottle: Gram positive cocci in clusters Susceptibility Methicillin Resistant Staphylococcus aureus VITEK 2 METHOD Clindamycin Resistant Gentamicin Susceptible [1] Linezolid Susceptible Oxacillin Resistant Trimethoprim/Sulfa Susceptible Vancomycin Susceptible [1] Gentamicin is not appropriate for monotherapy for gram-positive infections. Blood culture [[id number]] (Abnormal) Collected: 09/26/24 1845 Lab Status: Final result Specimen: Blood, Venous Updated: 10/01/24 0658 Blood Culture Methicillin Resistant Staphylococcus aureus Comment: isolated. Susceptibilities previously reported. Gram Stain Aerobic Bottle: Gram positive cocci in clusters Abscess/Wound Aspirate Culture, Aerobic & Anaerobic [[id number]] (Abnormal) Collected: 09/26/24 1650 Lab Status: Final result Specimen: Abscess from Groin, Left Updated: 09/30/24 1551 Narrative: The following orders were created for panel order Abscess/Wound Aspirate Culture, Aerobic & Anaerobic. Procedure Abnormality Status --------- ------ Abscess/Wound Aspirate C...[[id number]] Abnormal Final result Anaerobic Culture[[id number]] Final result Please view results for these tests on the individual orders. Anaerobic Culture [[id number]] Collected: 09/26/24 1650 Lab Status: Final result Specimen: Abscess from Groin, Left Updated: 09/30/24 1551 Anaerobic Culture No anaerobic organisms isolated Abscess/Wound Aspirate Culture, Aerobic & Anaerobic [[id number]] (Abnormal) Collected: 09/26/24 1702 Lab Status: Final result Specimen: Abscess from Knee, Left Updated: 09/30/24 1551 Narrative: The following orders were created for panel order Abscess/Wound Aspirate Culture, Aerobic & Anaerobic. Procedure Abnormality Status --------- ------ Abscess/Wound Aspirate C...[[id number]] Abnormal Final result Anaerobic Culture[[id number]] Final result Please view results for these tests on the individual orders. Anaerobic Culture [[id number]] Collected: 09/26/24 170 Lab Status: Final result Specimen: Abscess from Knee, Left Updated: 09/30/24 1551 Anaerobic Culture No anaerobic organisms isolated Sonicated Tissue/Implant Culture [[id number]] (Abnormal) Collected: 09/26/24 171 Lab Status: Final result Specimen: Vascular Graft from Leg, Left Updated: 09/30/24 1349 Sonicated Tissue/Implant Culture Methicillin Resistant Staphylococcus aureus Comment: isolated from broth culture. Susceptibilities previously reported. Abscess/Wound Aspirate Culture, Aerobic Only [[id number]] (Abnormal) (Susceptibility) Collected: 09/26/24 170 Lab Status: [...] to doxycycline. Abscess/Wound Aspirate Culture, Aerobic Only [[id number]] (Abnormal) (Susceptibility) Collected: 09/26/24 165 Lab Status: [...] is considered susceptible to doxycycline. AFB culture [[id number]] Collected: 09/27/24 165 Lab Status: Preliminary result Specimen: Tissue from Thigh, Left Updated: 09/29/24 1201 Acid Fast Bacilli Culture No acid fast bacilli isolated to date. Acid Fast Stain No acid fast bacilli seen AFB culture [[id number]] Collected: 09/26/24 170 Lab Status: Preliminary result Specimen: Abscess from Knee, Left Updated: 09/29/24 1201 Acid Fast Bacilli Culture No acid fast bacilli isolated to date. Acid Fast Stain No acid fast bacilli seen Fungus culture [[id number]] Collected: 09/27/241653 Lab Status: Preliminary result Specimen: Tissue from Thigh, Left Updated: 09/28/24 0748 Fungus Culture No fungus isolated to date MRSA PCR Screen [[id number]] (Abnormal) Collected: 09/27/24 0751 Lab Status: Final result Specimen: Swab from Nares Updated: 09/27/24 1156 MRSA PCR Detected Narrative: This test was performed using the Xpert MRSA NxG test kit and is run on the [employer] Dx System. This test is cleared by the U.S. Food and Drug Administration for clinical use and its performance characteristics have been verified by the [facility] at [facility]. Fungus culture [[id number]] Collected: 09/26/24 165 Lab Status: Preliminary result Specimen: Abscess from Groin, Left Updated: 09/27/24 0727 Fungus Culture No fungus isolated to date Fungus culture [[id number]] Collected: 09/26/241701 Lab Status: Preliminary result Specimen: [...] 2nd toe amputation who was transferred from [facility] given concern for infected left fem-BK popliteal PTFE bypass. He is now s/p an explantof an infected left femoral-below knee popliteal artery bypass graft (09/26), I/D groin abscess (), L GSV harvest, vein patch angioplasty, L [facility] and BK pop w/ sartorius flap L fem, I/D, 09/29 L sartorius flap revision, vac change. 10/03/24 NPO at [facility] for OR wound exploration. Wound vac off [...] 81mg daily Rose Wright APRN 10/03/2024 Pager: [phone] * Padma Ramirez MD - 10/02/2024 7:42 [...] concerns. Joanie Silverio PT, DPT, GCS Pager: [phone] 10/02/24 Inpatient Rehabilitation Department * Hermila White [...] 2nd toe amputation who was transferred from [facility] given concern for infected left [...] Daily heparin (porcine) 5,000 Units Subcutaneous [facility] lidocaine 1 patch Transdermal Q24H Operations [...] 9.6 from 9.1 - Last Bowel Movement: (LEI SELLER) Objective: Temp: [36.2 ??C (97.1 ??F)-36.9 ??C [...] Procedure Component Value - Date/Time Blood culture [[id number]] (Abnormal) Collected: 09/27/242132 Lab Status: Final result Specimen: Blood, Venous Updated: 10/02/24 0804 Blood Culture Methicillin Resistant Staphylococcus aureus Comment: Susceptibilities previously reported. Gram Stain Aerobic Bottle: Gram positive cocci in clusters Blood culture [[id number]] Collected: 09/29/242123 Lab Status: Preliminary result Specimen: Blood, Venous Updated: 10/01/24 2301 Blood Culture No growth at 48 hours Blood culture [[id number]] Collected: 09/29/242123 Lab Status: Preliminary result Specimen: Blood, Venous Updated: 10/01/24 2301 Blood Culture No growth at 48 hours Blood culture [[id number]] Collected: 09/28/24 1749 Lab Status: Preliminary result Specimen: Blood, Venous Updated: 10/01/24 1901 Blood Culture No growth at 72 hours Tissue Culture, Aerobic & Anaerobic [[id number]] Collected: 09/27/241653 Lab Status: Final result Specimen: Tissue from Thigh, Left Updated: 10/01/24 1554 Narrative: The following orders were created for panel order Tissue Culture, Aerobic & Anaerobic. Procedure Abnormality Status --------- ------ Tissue Culture, Aerobic ...[[id number]] Anaerobic Culture[[id number]] Final result Please view results for these tests on the individual orders. Anaerobic Culture [[id number]] Collected: 09/27/241653 Lab Status: Final result Specimen: Tissue from Thigh, Left Updated: 10/01/24 1554 Anaerobic Culture No anaerobic organisms isolated Tissue Culture, Aerobic Only [[id number]] (Abnormal) (Susceptibility) Collected: 09/27/24 165 Lab Status: [...] is considered susceptible to doxycycline. Blood culture [[id number]] (Abnormal) (Susceptibility) Collected: 09/26/24 1422 Lab Status: Final result Specimen: Blood, Venous Updated: 10/01/24 0658 Blood Culture Methicillin Resistant Staphylococcus aureus Comment: detected by PCR Isolate saved. If future testing is required, contact the Microbiology Tube Puller. Gram Stain Aerobic Bottle: Gram positive cocci in clusters Susceptibility Methicillin Resistant Staphylococcus aureus VITEK 2 METHOD Clindamycin Resistant Gentamicin Susceptible [1] Linezolid Susceptible Oxacillin Resistant Trimethoprim/Sulfa Susceptible Vancomycin Susceptible [1] Gentamicin is not appropriate for monotherapy for gram-positive infections. Blood culture [[id number]] (Abnormal) Collected: 09/26/24 1845 Lab Status: Final result Specimen: Blood, Venous Updated: 10/01/24 0658 Blood Culture Methicillin Resistant Staphylococcus aureus Comment: isolated. Susceptibilities previously reported. Gram Stain Aerobic Bottle: Gram positive cocci in clusters Abscess/Wound Aspirate Culture, Aerobic & Anaerobic [[id number]] (Abnormal) Collected: 09/26/24 165 Lab Status: Final result Specimen: Abscess from Groin, Left Updated: 09/30/24 1551 Narrative: The following orders were created for panel order Abscess/Wound Aspirate Culture, Aerobic & Anaerobic. Procedure Abnormality Status --------- ------ Abscess/Wound Aspirate C...[[id number]] Abnormal Final result Anaerobic Culture[[id number]] Final result Please view results for these tests on the individual orders. Anaerobic Culture [[id number]] Collected: 11/19/24 1650 Lab Status: Final result Specimen: Abscess from Groin, Left Updated: 09/30/24 1551 Anaerobic Culture No anaerobic organisms isolated Abscess/Wound Aspirate Culture, Aerobic & Anaerobic [[id number]] (Abnormal) Collected: 09/26/24 170 Lab Status: Final result Specimen: Abscess from Knee, Left Updated: 09/30/24 1551 Narrative: The following orders were created for panel order Abscess/Wound Aspirate Culture, Aerobic & Anaerobic. Procedure Abnormality Status --------- ------ Abscess/Wound Aspirate C...[[id number]] Abnormal Final result Anaerobic Culture[[id number]] Final result Please view results for these tests on the individual orders. Anaerobic Culture [[id number]] Collected: 09/26/24 170 Lab Status: Final result Specimen: Abscess from Knee, Left Updated: 09/30/24 1551 Anaerobic Culture No anaerobic organisms isolated Sonicated Tissue/Implant Culture [[id number]] (Abnormal) Collected: 09/26/24 1716 Lab Status: Final result Specimen: Vascular Graft from Leg, Left Updated: 09/30/24 1349 Sonicated Tissue/Implant Culture Methicillin Resistant Staphylococcus aureus Comment: isolated from broth culture. Susceptibilities previously reported. Abscess/Wound Aspirate Culture, Aerobic Only [[id number]] (Abnormal) (Susceptibility) Collected: 09/26/24 170 Lab Status: [...] to doxycycline. Abscess/Wound Aspirate Culture, Aerobic Only [[id number]] (Abnormal) (Susceptibility) Collected: 09/26/24 165 Lab Status: [...] is considered susceptible to doxycycline. AFB culture [[id number]] Collected: 09/27/241653 Lab Status: Preliminary result Specimen: Tissue from Thigh, Left Updated: 09/29/24 1201 Acid Fast Bacilli Culture No acid fast bacilli isolated to date. Acid Fast Stain No acid fast bacilli seen AFB culture [[id number]] Collected: 09/26/241701 Lab Status: Preliminary result Specimen: Abscess from Knee, Left Updated: 09/29/24 1201 Acid Fast Bacilli Culture No acid fast bacilli isolated to date. Acid Fast Stain No acid fast bacilli seen Fungus culture [[id number]] Collected: 09/27/241653 Lab Status: Preliminary result Specimen: Tissue from Thigh, Left Updated: 09/28/24 0748 Fungus Culture No fungus isolated to date MRSA PCR Screen [[id number]] (Abnormal) Collected: 09/27/24 0751 Lab Status: Final result Specimen: Swab from Nares Updated: 09/27/24 1156 MRSA PCR Detected Narrative: This test was performed using the Xpert MRSA NxG test kit and is run on the [employer] GeneXpert Dx System. This test is cleared by the U.S. Food and Drug Administration for clinical use and its performance characteristics have been verified by the [facility] at [facility]. Fungus culture [[id number]] Collected: 09/26/241649 Lab Status: Preliminary result Specimen: Abscess from Groin, Left Updated: 09/27/24 0727 Fungus Culture No fungus isolated to date Fungus culture [[id number]] Collected: 09/26/241701 Lab Status: Preliminary result Specimen: [...] 2nd toe amputation who was transferred from [facility] given concern for infected left fem-BK popliteal PTFE bypass. He is now s/p an explantof an infected left femoral-below knee popliteal artery bypass graft (09/26), I/D groin abscess (), L GSV harvest, vein patch angioplasty, L [facility] and BK pop w/ sartorius flap L [...] 81mg daily Hermila White APRN 10/02/2024 Pager: [phone] * María Carranza APRN - 10/01/2024 8:41 AM EST Images from the original note were not included. Vascular Surgery Progress Note Geovanna Dixon Jr. is a 49 y.o. 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 If future testing is required, contact the Microbiology Tube Puller. Gram Stain Aerobic Bottle: Gram positive cocci in clusters Susceptibility Methicillin Resistant Staphylococcus aureus VITEK 2 METHOD Clindamycin Resistant Gentamicin Susceptible [1] Linezolid Susceptible Oxacillin Resistant Trimethoprim/Sulfa Susceptible Vancomycin Susceptible [1] Gentamicin is not appropriate for monotherapy for gram-positive infections. Blood culture [[id number]] (Abnormal) Collected: 09/26/24 1845 Lab Status: Final result Specimen: Blood, Venous Updated: 10/01/24 0658 Blood Culture Methicillin Resistant Staphylococcus aureus Comment: isolated. Susceptibilities previously reported. Gram Stain Aerobic Bottle: Gram positive cocci in clusters Blood culture [[id number]] Collected: 09/29/242123 Lab Status: Preliminary result Specimen: Blood, Venous Updated: 09/30/24 2301 Blood Culture No Growth at 18-24 hrs. Blood culture [[id number]] Collected: 09/29/24 2124 Lab Status: Preliminary result Specimen: Blood, Venous Updated: 09/30/24 2301 Blood Culture No Growth at 18-24 hrs. Blood culture [[id number]] Collected: 09/28/24 1749 Lab Status: Preliminary result Specimen: Blood, Venous Updated: 09/30/24 1901 Blood Culture No growth at 48 hours Abscess/Wound Aspirate Culture, Aerobic & Anaerobic [[id number]] (Abnormal) Collected: 09/26/24 165 Lab Status: Final result Specimen: Abscess from Groin, Left Updated: 09/30/24 1551 Narrative: The following orders were created for panel order Abscess/Wound Aspirate Culture, Aerobic & Anaerobic. Procedure Abnormality Status --------- ------ Abscess/Wound Aspirate C...[[id number]] Abnormal Final result Anaerobic Culture[[id number]] Final result Please view results for these tests on the individual orders. Anaerobic Culture [[id number]] Collected: 09/26/24 165 Lab Status: Final result Specimen: Abscess from Groin, Left Updated: 09/30/24 1551 Anaerobic Culture No anaerobic organisms isolated Abscess/Wound Aspirate Culture, Aerobic & Anaerobic [[id number]] (Abnormal) Collected: 09/26/24 170 Lab Status: Final result Specimen: Abscess from Knee, Left Updated: 09/30/24 1551 Narrative: The following orders were created for panel order Abscess/Wound Aspirate Culture, Aerobic & Anaerobic. Procedure Abnormality Status --------- ------ Abscess/Wound Aspirate C...[[id number]] Abnormal Final result Anaerobic Culture[[id number]] Final result Please view results for these tests on the individual orders. Anaerobic Culture [[id number]] Collected: 09/26/24 170 Lab Status: Final result Specimen: Abscess from Knee, Left Updated: 09/30/24 1551 Anaerobic Culture No anaerobic organisms isolated Sonicated Tissue/Implant Culture [[id number]] (Abnormal) Collected: 09/26/24 1716 Lab Status: Final result Specimen: Vascular Graft from Leg, Left Updated: 09/30/24 1349 Sonicated Tissue/Implant Culture Methicillin Resistant Staphylococcus aureus Comment: isolated from broth culture. Susceptibilities previously reported. Abscess/Wound Aspirate Culture, Aerobic Only [[id number]] (Abnormal) (Susceptibility) Collected: 09/26/24 1702 Lab Status: [...] to doxycycline. Abscess/Wound Aspirate Culture, Aerobic Only [[id number]] (Abnormal) (Susceptibility) Collected: 09/26/24 1650 Lab Status: [...] is considered susceptible to doxycycline. Blood culture [[id number]] (Abnormal) Collected: 09/27/24 2133 Lab Status: Preliminary result Specimen: Blood, Venous Updated: 09/30/24 0718 Blood Culture Methicillin Resistant Staphylococcus aureus Comment: Susceptibilities previously reported. Gram Stain Aerobic Bottle: Gram positive cocci in clusters AFB culture [[id number]] Collected: 09/27/24 1654 Lab Status: Preliminary result Specimen: Tissue from Thigh, Left Updated: 09/29/24 1201 Acid Fast Bacilli Culture No acid fast bacilli isolated to date. Acid Fast Stain No acid fast bacilli seen AFB culture [[id number]] Collected: 09/26/24 1702 Lab Status: Preliminary result Specimen: Abscess from Knee, Left Updated: 09/29/24 1201 Acid Fast Bacilli Culture No acid fast bacilli isolated to date. Acid Fast Stain No acid fast bacilli seen Tissue Culture, Aerobic Only [[id number]] (Abnormal) (Susceptibility) Collected: 09/27/241653 Lab Status: Preliminary [...] is considered susceptible to doxycycline. Anaerobic Culture [[id number]] Collected: 09/27/241653 Lab Status: Preliminary result Specimen: Tissue from Thigh, Left Updated: 09/28/24 1355 Anaerobic Culture No anaerobic organisms isolated to date Fungus culture [[id number]] Collected: 09/27/241653 Lab Status: Preliminary result Specimen: Tissue from Thigh, Left Updated: 09/28/24 0748 Fungus Culture No fungus isolated to date MRSA PCR Screen [[id number]] (Abnormal) Collected: 09/27/24 0751 Lab Status: Final result Specimen: Swab from Nares Updated: 09/27/24 1156 MRSA PCR Detected Narrative: This test was performed using the Xpert MRSA NxG test kit and is run on the [employer] Dx System. This test is cleared by the U.S. Food and Drug Administration for clinical use and its performance characteristics have been verified by the [facility] at [facility]. Fungus culture [[id number]] Collected: 09/26/24 165 Lab Status: Preliminary result Specimen: Abscess from Groin, Left Updated: 09/27/24 0727 Fungus Culture No fungus isolated to date Fungus culture [[id number]] Collected: 09/26/24 1702 Lab Status: Preliminary result [...] 2nd toe amputation who was transferred from [facility] given concern for infected left fem-BK popliteal PTFE bypass. He is now s/p an explantof an infected left femoral-below knee popliteal artery bypass graft (09/26), I/D groin abscess (), L GSV harvest, vein patch angioplasty, L [facility] and BK pop w/ sartorius flap L [...] SQH TID Antiplatelet: ASA 81 María Carranza, [employer] 10/01/2024 Pager: [phone] * Karolyn Hudson MD - 09/30/2024 11:21 AM EST Images from the original note were not included. Vascular Surgery Progress Note Patient ID Geovanna Dixon Jr. is a 49 y.o. male with history of HTN, HLD, NSTEMI, CAD s/p CABG (12/2011), DM, obesity, PAD s/p L iliofem endart and L fem-BK pop bypass and L 2nd toe amputation who was transferred from [facility] given concern for infected left [...] Procedure Component Value - Date/Time Blood culture [[id number]] (Abnormal) Collected: 09/27/24 2133 Lab Status: Preliminary result Specimen: Blood, Venous Updated: 09/30/24 0718 Blood Culture Methicillin Resistant Staphylococcus aureus Comment: Susceptibilities previously reported. Gram Stain Aerobic Bottle: Gram positive cocci in clusters Blood culture [[id number]] Collected: 09/28/24 1749 Lab Status: Preliminary result Specimen: Blood, Venous Updated: 09/29/24 1901 Blood Culture No Growth at 18-24 hrs. AFB culture [[id number]] Collected: 09/27/24 1654 Lab Status: Preliminary result Specimen: Tissue from Thigh, Left Updated: 09/29/24 1201 Acid Fast Bacilli Culture No acid fast bacilli isolated to date. Acid Fast Stain No acid fast bacilli seen AFB culture [[id number]] Collected: 09/26/24 1702 Lab Status: Preliminary result Specimen: Abscess from Knee, Left Updated: 09/29/24 1201 Acid Fast Bacilli Culture No acid fast bacilli isolated to date. Acid Fast Stain No acid fast bacilli seen Sonicated Tissue/Implant Culture [[id number]] (Abnormal) Collected: 09/26/24 1716 Lab Status: Preliminary result Specimen: Vascular Graft from Leg, Left Updated: 09/29/24 1132 Sonicated Tissue/Implant Culture Methicillin Resistant Staphylococcus aureus Comment: isolated from broth culture. Susceptibilities previously reported. Tissue Culture, Aerobic Only [[id number]] (Abnormal) (Susceptibility) Collected: 09/27/24 1654 Lab Status: [...] is considered susceptible to doxycycline. Blood culture [[id number]] (Abnormal) Collected: 09/26/24 1845 Lab Status: Preliminary result Specimen: Blood, Venous Updated: 09/29/24 0719 Blood Culture Methicillin Resistant Staphylococcus aureus Comment: isolated. Susceptibilities previously reported. Gram Stain Aerobic Bottle: Gram positive cocci in clusters Blood culture [[id number]] (Abnormal) (Susceptibility) Collected: 09/26/24 1422 Lab Status: Preliminary result Specimen: Blood, Venous Updated: 09/29/24 0717 Blood Culture Methicillin Resistant Staphylococcus aureus Comment: detected by PCR Isolate saved. If future testing is required, contact the Microbiology Tube Puller. Gram Stain Aerobic Bottle: Gram positive cocci in clusters Susceptibility Methicillin Resistant Staphylococcus aureus VITEK 2 METHOD Clindamycin Resistant Gentamicin Susceptible [1] Linezolid Susceptible Oxacillin Resistant Trimethoprim/Sulfa Susceptible Vancomycin Susceptible [1] Gentamicin is not appropriate for monotherapy for gram-positive infections. Anaerobic Culture [[id number]] Collected: 09/27/24 165 Lab Status: Preliminary result Specimen: Tissue from Thigh, Left Updated: 09/28/24 1355 Anaerobic Culture No anaerobic organisms isolated to date Abscess/Wound Aspirate Culture, Aerobic Only [[id number]] (Abnormal) (Susceptibility) Collected: 09/26/24 1702 Lab Status: [...] to doxycycline. Abscess/Wound Aspirate Culture, Aerobic Only [[id number]] (Abnormal) (Susceptibility) Collected: 09/26/241649 Lab Status: Preliminary [...] is considered susceptible to doxycycline. Fungus culture [[id number]] Collected: 09/27/241653 Lab Status: Preliminary result Specimen: Tissue from Thigh, Left Updated: 09/28/24 0748 Fungus Culture No fungus isolated to date MRSA PCR Screen [[id number]] (Abnormal) Collected: 09/27/24 0751 Lab Status: Final result Specimen: Swab from Nares Updated: 09/27/24 1156 MRSA PCR Detected Narrative: This test was performed using the Xpert MRSA NxG test kit and is run on the [employer] Dx System. This test is cleared by the U.S. Food and Drug Administration for clinical use and its performance characteristics have been verified by the [facility] at [facility]. Anaerobic Culture [[id number]] Collected: 09/26/241649 Lab Status: Preliminary result Specimen: Abscess from Groin, Left Updated: 09/27/24 1142 Anaerobic Culture No anaerobic organisms isolated to date Anaerobic Culture [[id number]] Collected: 09/26/24 1702 Lab Status: Preliminary result Specimen: Abscess from Knee, Left Updated: 09/27/24 1142 Anaerobic Culture No anaerobic organisms isolated to date Fungus culture [[id number]] Collected: 09/26/241649 Lab Status: Preliminary result Specimen: Abscess from Groin, Left Updated: 09/27/24 0727 Fungus Culture No fungus isolated to date Fungus culture [[id number]] Collected: 09/26/24 1702 Lab Status: Preliminary result Specimen: Abscess from Knee, Left Updated: 09/27/24 07 Fungus Culture No fungus isolated to date New Studies Results for orders placed or performed during the hospital encounter of 09/26/24 Request For 2nd Read CT Lower Extremity (Exam End: 09/26/2024 1:50 PM) Result Value WORKSTATION ID [id number] Impression 1. There is a left femoral [...] have questions please contact the health care navigator that requested your imaging first. Lower Extremity w Contrast Left (Exam End: 09/27/2024 9:16 AM) Result Value WORKSTATION ID [id number] Impression IMPRESSION: 1. Interval explant of LEFT [...] have questions please contact the health care navigator that requested your imaging first. 09/28 ABIs [...] 2nd toe amputation who was transferred from [facility] given concern for infected left [...] at proximal and distal anastomoses and a Aurora drain placed from left groin to left thigh. The retained grafts have since been removed, with Aurora drains in the L groin and thigh [...] Labs 09/28/24 1516 PHART 7.42 PO2ART 103 [id number] 39 LACTATEART 1.1 BEART 0.2 Is this [...] 1643 PHART 7.42 7.38 PO2ART 103 96 [id number] 39 41 LACTATEART 1.1 1.7 BEART 0.2 [...] Thank you, Renea Nunez, MS, RD, LD, [facility] Clinical Nutrition * Mariya Shi [...] [facility] [place] Endocrinology Diabetes Management Pager [phone] Weekends please page [phone] 35 minutes were spent over the course [...] Labs 09/26/24 1643 PHART 7.38 PO2ART 96 [id number] 41 LACTATEART 1.7 BEART -1.4 Is this [...] 2nd toe amputation who was transferred from [facility] given concern for infected left [...] Procedure Component Value - Date/Time Fungus culture [[id number]] Collected: 09/27/24 1654 Lab Status: Preliminary result Specimen: Tissue from Thigh, Left Updated: 09/28/24 0748 Fungus Culture No fungus isolated to date Blood culture [[id number]] (Abnormal) Collected: 09/26/24 1845 Lab Status: Preliminary result Specimen: Blood, Venous Updated: 09/28/24 0711 Blood Culture Methicillin Resistant Staphylococcus aureus Comment: isolated. Susceptibility testing in progress. Gram Stain Aerobic Bottle: Gram positive cocci in clusters AFB culture [[id number]] Collected: 09/26/24 170 Lab Status: Preliminary result Specimen: Abscess from Knee, Left Updated: 09/27/24 2335 Acid Fast Stain No acid fast bacilli seen Tissue Culture, Aerobic Only [[id number]] Collected: 09/27/24 165 Lab Status: Preliminary result Specimen: Tissue from Thigh, Left Updated: 09/27/24 1810 Gram Stain Few Neutrophils seen No microorganisms seen Abscess/Wound Aspirate Culture, Aerobic Only [[id number]] (Abnormal) Collected: 09/26/24 170 Lab Status: Preliminary result Specimen: Abscess from Knee, Left Updated: 09/27/24 1520 Abscess/Wound Aspirate Culture Many Staphylococcus aureus Gram Stain Many neutrophils Many Gram positive cocci Abscess/Wound Aspirate Culture, Aerobic Only [[id number]] (Abnormal) Collected: 09/26/24 165 Lab Status: Preliminary result Specimen: Abscess from Groin, Left Updated: 09/27/24 1519 Abscess/Wound Aspirate Culture Many Staphylococcus aureus Gram Stain Many neutrophils Many Gram positive cocci Blood culture [[id number]] (Abnormal) Collected: 09/26/24 1422 Lab Status: Preliminary result Specimen: Blood, Venous Updated: 09/27/24 1320 Blood Culture Methicillin Resistant Staphylococcus aureus Comment: detected by PCR Gram Stain Aerobic Bottle: Gram positive cocci in clusters MRSA PCR Screen [[id number]] (Abnormal) Collected: 09/27/24 0751 Lab Status: Final result Specimen: Swab from Nares Updated: 09/27/24 1156 MRSA PCR Detected Narrative: This test was performed using the Xpert MRSA NxG test kit and is run on the [employer] Dx System. This test is cleared by the U.S. Food and Drug Administration for clinical use and its performance characteristics have been verified by the [facility] at [facility]. Anaerobic Culture [[id number]] Collected: 09/26/24 165 Lab Status: Preliminary result Specimen: Abscess from Groin, Left Updated: 09/27/24 1142 Anaerobic Culture No anaerobic organisms isolated to date Anaerobic Culture [[id number]] Collected: 09/26/24 170 Lab Status: Preliminary result Specimen: Abscess from Knee, Left Updated: 09/27/24 1142 Anaerobic Culture No anaerobic organisms isolated to date Fungus culture [[id number]] Collected: 09/26/24 1650 Lab Status: Preliminary result Specimen: Abscess from Groin, Left Updated: 09/27/24726 Fungus Culture No fungus isolated to date Fungus culture [[id number]] Collected: 09/26/24 1702 Lab Status: Preliminary result Specimen: Abscess from Knee, Left Updated: 09/27/24726 Fungus Culture No fungus isolated to date New Studies Results for orders placed or performed during the hospital encounter of 09/26/24 Request For 2nd Read CT Lower Extremity (Exam End: 09/26/2024 1:50 PM) Result Value WORKSTATION ID [id number] Impression 1. There is a left femoral [...] have questions please contact the health care navigator that requested your imaging first. Lower Extremity w Contrast Left (Exam End: 09/27/2024 9:16 AM) Result Value WORKSTATION ID [id number] Impression IMPRESSION: 1. Interval explant of LEFT [...] have questions please contact the health care navigator that requested your imaging first. Assessment & Plan Geovanna Dixon Jr. is a 49 y.o. 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 : [id number] MR#: [id number] Admit Date: 09/26/2024 2:08 PM Hospital Day 1 day Narrative: Screening Unit Registered Nurse initiated visit with patient during rounds on [...] Labs 09/26/24 1643 PHART 7.38 PO2ART 96 [id number] 41 LACTATEART 1.7 BEART -1.4 Is this [...] 2nd toe amputation who was transferred from [facility] given concern for infected left [...] 2nd toe amputation who was transferred from [facility] given concern for infected left fem-BK popliteal PTFE bypass. He is now s/p an explantof an infected left femoral-below knee popliteal artery bypass graft. Significant purulence under pr essure was seen intraoperatively, surrounding the entire bypass at proximal and distal anastomoses as well as the tunnel. There are retained grafts left at proximal and distal anastomoses, and a Aurora drain placed from left groin to left [...] graft associated infection. The patient presented to [facility] ED on 09/26 for evaluation [...] remained hemodynamically stable during his time at [facility] and was transported by ground [...] 3.51) performed by Thony Garcia MD at [facility] MAIN OR PRO BYPASS GRAFT OTHR, FEM-TIBIAL Left 08/01/2024 @BYPASS GRAFT, FEM-ANT TIBIAL, -POST TIBIAL, -PERONEAL, -DP W\ SYNTHETIC CONDUIT (WRVU 23.66) performed by Lisette Maldonado MD at [facility] MAIN OR PRO CABG, ARTERY-VEIN, SINGLE 01/04/2012 @CABG, VENOUS & ARTERIAL GRAFT;SINGLE VEIN GRAFT performed by INNA TOVAR at [facility] MAIN OR PRO ENDOSCOPY W/VIDEO-ASST VEIN HARVEST, CABG 01/04/2012 ENDOSCOPIC HARVEST VEIN(S) FOR CABG performed by INNA TOVAR at [facility] MAIN OR VS ARTERIOGRAM LOWER EXTREMITY VASCULAR SURGERY 07/20/2024 VS Arteriogram Lower Extremity Vascular Surgery 07/20/2024 Anabel Finney MD [facility] INTERVENTIONL RAD Prior To Admission [...] 3 times daily. Use as instructed Indications: [id number] each 1 Past Week FreeStyle Lancets 28 [...] ([facility]/AYANAP/BABITA) Result Value Ref Range ABORH Type A [...] 09/26/2024 1:50 PM) Result Value WORKSTATION ID [id number] Impression 1. There is a left femoral [...] have questions please contact the health care navigator that requested your imaging first. Assessment/Plan: Geovanna [...] to the planned procedure. Hand Hygiene: The general maintenance mechanic did perform hand hygiene prior to line insertion. Catheter type: PICC Lot number: [id number] Procedure Technique: Skin was prepped with chlorhexidine. [...] to the planned procedure. Hand Hygiene: The general maintenance mechanic did perform hand hygiene prior to line insertion. Catheter type: PICC Lot number: [id number] Procedure Technique: Skin was prepped with chlorhexidine. [...] now delivered the home Act[employer]ac serial # [id number]. Pt reviewed the [facility] [employer] Proof of Delivery/Assignment of Benefits (POD/AOB)form and signed it; she has copy of this and the [facility] Patient Copy letter along with the supplies, I will fax copy of the POD/AOB to [facility]. Needs for Transition of Care: Plan for discharge is: Home w/ Services Outpatient Agency/Support Group Needs: Homecare agency Outpatient IV Medications - IV Access: Access Ordered Location: Home, Referred to [facility] Coordination, Referred to [facility] Health Services: Occupational Therapy, Physical Therapy, Registered Nurse Agency Referrals & Follow-up Care: [place] [facility] [place] [id number] [address] [facility] [id number] Transportation: family or friend will provide Functional status prior to admission: Independent Home Environment: Others in the home: sibling(s), other (see comments) (lives with his sister delmy and brother in law). Current Living Arrangements: home/apartment/condo. Accessibility Concerns: . Current Functional Ability: Assistive Person and Equipment DME used at home: none Other DME Needs: Wound Vac Provider: [facility] Patient is insured through: Primary Insurance: [employer] MANAGED MEDICARE Payor: [employer] MANAGED MEDICARE / Plan: [employer] MANAGED MEDICARE PPO / Product Type: *No [...] Pain Flowsheets Taken 10/09/20242022 Pain Management Interventions: golhvg-lys-vkucr dosing utilized care clustered diversional activity provided [...] from the [place] [address] [facility] Vascular Access Service Peripherally Inserted Central Catheter (PICC) Teaching Sheet Peripherally inserted central catheters (iifk-lz-omxu) (PICC) are used when you need IV [...] midline catheter? PICC lines are used for terminal worker treatments. PICC lines may be used for [...] can be set up via the nurse Scrap Metal Burner to help you. What are possible complications [...] Vascular Access Device Selection, Insertion, and Management, [employer] Systems 08/12. A Review of the Efficacy, Safety, Use, and Administration of Cathflo, [employer] 2005 * Care Management - Cristina [...] through: Primary Insurance: [employer] MANAGED MEDICARE Payor: [employer] MEDICARE / Plan: [employer] MANAGED MEDICARE PPO / Product Type: *No [...] Ordered Location: Home, Referred to [facility] Coordination Home Health Services: Occupational Therapy, Physical Therapy, Registered Nurse- will remove PT, OT Agency Referrals: [facility] and [facility] for IV abx. [facility] can come tomorrow [...] 9:00 AM EST OFFICE OF CARE MANAGEMENT Scrap Metal Burner Follow-up Note Cristina Turner RN reviewed record [...] medically ready. Current Referral in place: VNA: [facility] Wound vac ordered in [employer] for home wound vac and order emailed to: María for signature. Scrap Metal Burner to follow with team and family to [...] where referrals are placed. Request referral to [place], [place] for IV abx or . Expected date of discharge: 10/11. Patient will require teaching. Referral routed to the Religion Teacher for matching with agency/vendor and to provide [...] care clustered diversional activity provided position adjusted qmreqn-htd-mqqzh dosing utilized pain management plan reviewed with [...] have. Alternately, during off-hours you may call [phone] to contact a pharmacist. * Plan of Care - Jordyn Navas RN - 10/07/2024 7:21 PM EST OUTCOME EVALUATION NOTE: OUTCOME SUMMARY: [facility], Meds/Assessments as charted, Frequent [...] PM EST PICC line placed today for [facility] ABX. Neurovascular checks unchanged. Good oral intake [...] from the original [place] [address] [facility] Vascular Access Service Peripherally Inserted Central Catheter (PICC) Teaching Sheet Peripherally inserted central catheters (wmnm-wo-xres) (PICC) are used when you need IV [...] midline catheter? PICC lines are used for [facility] treatments. PICC lines may be used for [...] can be set up via the nurse Scrap Metal Burner to help you. What are possible complications [...] Vascular Access Device Selection, Insertion, and Management, [employer] Systems 08/12. A Review of the Efficacy, Safety, Use, and Administration of Cathflo, [employer] 2005 * Care Management - Vibha [...] No Patient is insured through: Primary Insurance: [employer] MANAGED MEDICARE Payor: [employer] MA[employer]GED MEDICARE / Plan: [employer] MANAGED MEDICARE PPO / Product Type: *No [...] of Discharge: 10/10/2024 Vibha Wahl RN-BSN-CM Pager: [phone] * Consult Note - Stormy Muller [facility] - 10/06/2024 9:19 AM EST [facility] Pharmacokinetics Note Drug: Vancomycin Pharmacokinetic [...] Analysis of the most recent level(s) using [employer] gives the following patient-specific pharmacokinetic parameters: CL: [...] in a steady-state trough of 14.6 mg/L [id number] of 508 mg/L.hr. Recommendations: - SCr has [...] Note Patient Name: Geovanna Dixon Jr. : [id number] MR#: [id number] Case Date: 10/04/2024 Surgeon: Surgeons and Role: * Marko Dickson MD - Primary * Cristino Meeks MD - Resident - Assisting Preoperative diagnosis: Status post explant of infected left [facility]-BK pop bypass graft Postoperative diagnosis: Status post explant of infected left [facility]-BK pop bypass graft Procedure(s) (LRB): DEBRIDEMENT SKIN [...] 2nd toe amputation who was transferred from [facility] given concern for infected left fem-BK popliteal PTFE bypass. He is now s/p an explant of an infected left femoral-below knee popliteal artery bypass graft on 09/26 followed by I/D posterior thigh abscess on 09/27 then left GSV harvest, total explant of remaining PTFE then vein patch angioplasty of the left [facility] and BK popliteal artery on 09/28 then [...] Note Patient Name: Geovanna Dixon Jr. : [id number] MR#: [id number] Case Date: 10/04/2024 Surgeon: Surgeons and Role: * Marko Dickson MD - Primary * Cristino Meeks MD - Resident - Assisting Preoperative diagnosis: Status post explant of infected left [facility]-BK pop bypass graft Postoperative diagnosis: Status post explant of infected left [facility]-BK pop bypass graft Procedure(s) (LRB): DEBRIDEMENT SKIN [...] No Patient is insured through: Primary Insurance: [employer] MANAGED MEDICARE Payor: [employer] MANAGED MEDICARE / Plan: [employer] MA[employer]GED MEDICARE PPO / Product Type: *No Product type* / Secondary Insurance: N/A Last Physical Therapy Recommendation: home with supervision (and support from family, prn) with None (10/03/24 1101) Last Occupational Therapy Recommendation: home (w/ family) with None (10/03/24 7520) Plan for discharge is: Pending Hospital Course [...] BIT to reengage please page BIT @ 1332 * Consult Note - Vangie Chandra [facility] - 10/04/2024 10:42 AM EST [facility] Pharmacokinetics Note Drug: Vancomycin Pharmacokinetic [...] Analysis of the most recent level(s) using [employer] gives the following patient-specific pharmacokinetic parameters: CL: [...] L 2nd toe amputationwho was transferred from [facility] given concern for infected left fem-BK popliteal PTFE bypass. He is now s/p an explant of an infected left femoral-below knee popliteal artery bypass graft (09/26), I/D groin abscess (09/27), L GSV harvest, vein patch angioplasty, L [facility] and BK pop w/ sartorius flap L fem, I/D, 09/29 L sartorius flap revision, vac change. 10/03/24 NPO at [facility] for OR wound exploration. Wound vac off [...] 3.51) performed by Thony Garcia MD at [facility] MAIN OR PRO BYPASS GRAFT OTHR, FEM-TIBIAL Left 08/01/2024 @BYPASS GRAFT, FEM-ANT TIBIAL, -POST TIBIAL, -PERONEAL, -DP W\ SYNTHETIC CONDUIT (WRVU 23.66) performed by Lisette Maldonado MD at [facility] MAIN OR PRO CABG, ARTERY-VEIN, SINGLE 01/04/2012 @CABG, VENOUS & ARTERIAL GRAFT;SINGLE VEIN GRAFT performed by INNA TOVAR at [facility] MAIN OR PRO DEBRIDEMENT MUSCLE AND FASCIA 20 SQ CM/< Left 09/29/2024 DEBRIDEMENT SKIN, SUBCU, MUSCLE, LOWER EXTREMITY (WRVU 2.7) performed by Anabel Finney MD at [facility] MAIN OR PRO DEBRIDEMENT MUSCLE AND FASCIA 20 SQ CM/< Left 10/02/2024 DEBRIDEMENT SKIN, SUBCU, MUSCLE, LOWER EXTREMITY (WRVU 2.7) performed by Hermila Mccormick MDat [facility] MAIN OR PRO DEBRIDEMENT SUBCUTANEOUS TISSUE 20 SQCM/< Left 09/27/2024 DEBRIDEMENT SKIN AND SUBCU, LOWER EXTREMITY (WRVU 1.01) performed by Hayley Torres MD at [facility] MAIN OR PRO DRAIN LOWER LEG DEEP ABSC/HEMATOMA Left 09/26/2024 INCISION & DRAINAGE, LEG OR ANKLE, DEEP ABSCESS OR HEMATOMA (WRVU 5.23) performed by Hayley Torres MD at [facility] OR [facility] ENDOSCOPY W/VIDEO-ASST VEIN HARVEST, CABG 01/04/2012 ENDOSCOPIC HARVEST VEIN(S) FOR CABG performed by INNA TOVAR at [facility] MAIN OR PRO EXCISION, INFEC GRAFT, EXTREMITY Left 09/26/2024 EXCISION OF INFECTED GRAFT FROM LOWER EXTREMITY (WRVU 9.53) performed by Hayley Torres MD at [facility] OR PRO EXCISION, INFEC GRAFT, EXTREMITY Left 09/28/2024 EXCISION OF INFECTED GRAFT FROM LOWER EXTREMITY (WRVU 9.53) performed by Hayley Torres MD at [facility] MAIN OR PRO EXPLORATION NOT FOLLOWED BY SURG LOWER EXTREMITY ARTERY Left 09/29/2024 @EXPLORATION W\O SURGICAL REPAIR, FEMORAL ARTERY - JENNIFER (WRVU 7.5) performed by Anabel Finney MD at [facility] MAIN OR PRO FORM SKIN PEDICLE FLAP SCALP, ARM, LEG 09/28/2024 FLAP, PEDICLE,W OR W/O TRANSFER, LEGS (WRVU 10.12) performed by Hayley Torres MD at [facility] MAIN OR PRO I&D DEEP ABSCESS BURSA/HEMATOMA THIGH/KNEE REGION Left 09/26/2024 INCISION & DRAINAGE ABSCESS OR HEMATOMA, THIGH, KNEE SUPERFICIAL (WRVU 6.78) performed by Hayley Torres MD at [facility] MAIN OR PRO REVISION FEMORAL ANAST BPG GROIN OPEN W/NONAUTOG PATCH GRAFT Left 09/28/2024 REV. FEM. ANASTOMOSIS OF SYN. BYPASS GRAFT USING NONAUTOGENOUS PATCH ANGIOPLASTY-JENNIFER (WRVU 23.15) performed by Hayley Torres MD at [facility] MAIN OR PRO UNLISTED PROCEDURE VASCULAR SURGERY Left 09/28/2024 HARVEST SAPHENOUS VEIN (WRVU 13.24) performed by Hayley Torres MD at [facility] MAIN OR VS ARTERIOGRAM LOWER EXTREMITY VASCULAR SURGERY 07/20/2024 VS Arteriogram Lower Extremity Vascular Surgery 07/20/2024 Anabel Finney MD [facility] INTERVENTIONL RAD Social History: Patient [...] Pt issued and educated on use of bailiff for bailiff lower items. Self-feeding: Independent Grooming: Set up [...] Discharge planning Total Minutes, Occupational Therapy: 35 ([id number]) OT Evaluation Code Rationale: Diagnosis & Pertinent Co-Morbidities affecting Plan of Care: see PMHx Occupational Profile & Client History: Brief Expanded Extensive x Assessment of Occupational Performance: 1-3 performance deficits 3-5 performance deficits x 5 + performance deficits Clinical Decision Making: Low Moderate High x Clinical decision making of low complexity using standardized patient assessment instrument and measurable assessment of functional outcome. Pager: [phone] Jorge Goetz OT 10/03/2024 Occupational Therapy Rehabilitation [...] Note Patient Name: Geovanna Dixon Jr. : [id number] MR#: [id number] Case Date: 10/02/2024 Surgeon: Surgeons and Role: [...] 2nd toe amputation who was transferred from [facility] given concern for infected left [...] the groin, we then attached a 15 [place] Jose drain to the Yung drain, and remove the Yung drain, replacing it with the 15 [place] Jose drain. In a similar way we [...] Therapy, Physical Therapy, Registered Nurse Agency Referrals: [facility]. [address] [place] [address] Transportation: family or friend will provide Barriers to discharge: Global: Denies needs/concerns at this time Plan: Patient is not medically ready related to: patient is going to the OR today for a washout andremains on blowout precautions. Plan going forward is: when able patient will need to work with PT/OT Anticipated Date of Discharge: 10/10/2024 Penny ROSAS, RN Phone: [phone] Pager: [phone] * Plan of Care - Heidi Mobley [...] Consult Note - Katelyn Oconnor [facility] - 09/30/2024 7:43 AM EST [facility] Pharmacokinetics Note Drug: Vancomycin Pharmacokinetic target: AUC24 (range) 400-600 mg/L.hr Current regimen: 1500 mg IV every 8 hours Geovanna Dixon is a(n) 49 years old male receiving Vancomycin 1500 mg IV every 8 hours for bacteremia Recent measured serum creatinine values: 09/29/2024 23:52 0.48 mg/dL 09/28/2024 23:51 0.52 mg/dL 09/27/2024 23:58 0.48 mg/dL Assessment: Analysis of the most recent level(s) using [employer] gives the following patient-specific pharmacokinetic parameters: CL: [...] Note Patient Name: Geovanna Dixon Jr. : [id number] MR#: [id number] Case Date: 09/29/2024 Surgeon: Surgeons and Role: [...] 2nd toe amputation who was transferred from [facility] given concern for infected left [...] mobilized and explored. The area around the [employer] was irrigated copiously. The flap was then [...] Therapy, Physical Therapy, Registered Nurse Agency Referrals: [facility]. [address] [place] [address] Transportation: family or friend will provide Barriers [...] Discharge: 10/04/2024 Penny ROSAS RN CM Phone: [phone] Pager: [phone] * Consult Note - Rose Wright APRN [...] 2nd toe amputation who was transferred from [facility] given concern for infected left [...] Procedure Component Value - Date/Time Blood culture [[id number]] (Abnormal) Collected: 09/27/242132 Lab Status: Preliminary result Specimen: Blood, Venous Updated: 09/29/24 0721 Blood Culture Methicillin Resistant Staphylococcus aureus Gram Stain Aerobic Bottle: Gram positive cocci in clusters Blood culture [[id number]] (Abnormal) Collected: 09/26/24 1845 Lab Status: Preliminary result Specimen: Blood, Venous Updated: 09/29/24 0719 Blood Culture Methicillin Resistant Staphylococcus aureus Comment: isolated. Susceptibilities previously reported. Gram Stain Aerobic Bottle: Gram positive cocci in clusters Blood culture [[id number]] (Abnormal) (Susceptibility) Collected: 09/26/24 1422 Lab Status: Preliminary result Specimen: Blood, Venous Updated: 09/29/24 0717 Blood Culture Methicillin Resistant Staphylococcus aureus Comment: detected by PCR Isolate saved. If future testing is required, contact the Microbiology Tube Puller. Gram Stain Aerobic Bottle: Gram positive cocci in clusters Susceptibility Methicillin Resistant Staphylococcus aureus VITEK 2 METHOD Clindamycin Resistant Gentamicin Susceptible [1] Linezolid Susceptible Oxacillin Resistant Trimethoprim/Sulfa Susceptible Vancomycin Susceptible [1] Gentamicin is not appropriate for monotherapy for gram-positive infections. AFB culture [[id number]] Collected: 09/27/24 165 Lab Status: Preliminary result Specimen: Tissue from Thigh, Left Updated: 09/28/24 2226 Acid Fast Stain No acid fast bacilli seen Anaerobic Culture [[id number]] Collected: 09/27/24 165 Lab Status: Preliminary result Specimen: Tissue from Thigh, Left Updated: 09/28/24 1355 Anaerobic Culture No anaerobic organisms isolated to date Sonicated Tissue/Implant Culture [[id number]] Collected: 09/26/24 1716 Lab Status: Preliminary result Specimen: Vascular Graft from Leg, Left Updated: 09/28/24 1323 Sonicated Tissue/Implant Culture Culture in progress Tissue Culture, Aerobic Only [[id number]] (Abnormal) Collected: 09/27/24 1654 Lab Status: Preliminary result Specimen: Tissue from Thigh, Left Updated: 09/28/24 1049 Tissue Culture Rare Staphylococcus aureus Gram Stain Few Neutrophils seen No microorganisms seen Abscess/Wound Aspirate Culture, Aerobic Only [[id number]] (Abnormal) (Susceptibility) Collected: 09/26/24 1702 Lab Status: [...] to doxycycline. Abscess/Wound Aspirate Culture, Aerobic Only [[id number]] (Abnormal) (Susceptibility) Collected: 09/26/241649 Lab Status: Preliminary [...] is considered susceptible to doxycycline. Fungus culture [[id number]] Collected: 09/27/241653 Lab Status: Preliminary result Specimen: Tissue from Thigh, Left Updated: 09/28/24 0748 Fungus Culture No fungus isolated to date AFB culture [[id number]] Collected: 09/26/241701 Lab Status: Preliminary result Specimen: Abscess from Knee, Left Updated: 09/27/24 2335 Acid Fast Stain No acid fast bacilli seen MRSA PCR Screen [[id number]] (Abnormal) Collected: 09/27/24 0751 Lab Status: Final result Specimen: Swab from Nares Updated: 09/27/24 1156 MRSA PCR Detected Narrative: This test was performed using the Xpert MRSA NxG test kit and is run on the [employer] Dx System. This test is cleared by the U.S. Food and Drug Administration for clinical use and its performance characteristics have been verified by the [facility] at [facility]. Anaerobic Culture [[id number]] Collected: 09/26/241649 Lab Status: Preliminary result Specimen: Abscess from Groin, Left Updated: 09/27/24 1142 Anaerobic Culture No anaerobic organisms isolated to date Anaerobic Culture [[id number]] Collected: 09/26/24 170 Lab Status: Preliminary result Specimen: Abscess from Knee, Left Updated: 09/27/24 1142 Anaerobic Culture No anaerobic organisms isolated to date Fungus culture [[id number]] Collected: 09/26/24 1650 Lab Status: Preliminary result Specimen: Abscess from Groin, Left Updated: 09/27/24726 Fungus Culture No fungus isolated to date Fungus culture [[id number]] Collected: 09/26/24 1702 Lab Status: Preliminary result Specimen: Abscess from Knee, Left Updated: 09/27/24726 Fungus Culture No fungus isolated to date New Studies Results for orders placed or performed during the hospital encounter of 09/26/[address] Read CT Lower Extremity (Exam End: 09/26/2024 1:50 PM) Result Value WORKSTATION ID [id number] Impression 1. There is a left femoral [...] have questions please contact the health care navigator that requested your imaging first. Lower Extremity w Contrast Left (Exam End: 09/27/2024 9:16 AM) Result Value WORKSTATION ID [id number] Impression IMPRESSION: 1. Interval explant of LEFT [...] have questions please contact the health care navigator that requested your imaging first. 09/28 ABIs [...] 2nd toe amputation who was transferred from [facility] given concern for infected left [...] at proximal and distal anastomoses and a Aurora drain placed from left groin to left [...] Note Patient Name: Geovanna Dixon Jr. : [id number] MR#: [id number] Case Date: 09/28/2024 Surgeon: Surgeons and Role: [...] pericardial patch and PTFE willard over the [employer] was unincorporated. - Resection of prior femoral [...] Destination 1 : Left femoral proximal graft Palm Gatherer Leg, Left SURGICAL PATHOLOGY Hayley Torres MD 09/28/2024 1410 2 : Left distal BK pop graft Palm Gatherer Leg, Left SURGICAL PATHOLOGY Hayley Torres MD [...] Indications: 49M with history of a left [employer]-BK popliteal artery bypass with PTFE performed in [...] solution. Systemic heparin was administered. Next, the [employer], SFA, and DFA were clamped. An 11-blade scalpel was used to excise the PTFE graft willard and the prior bovine pericardial patch, and all prior Prolene sutures were removed. Residual plaque in the arterial lumen was removed using a [place] elevator. The harvested vein patch was cut [...] the midline with division of the first microcomputer support specialist, such that the sartorius muscle was free [...] Note Patient Name: Geovanna Dixon Jr. : [id number] MR#: [id number] Case Date: 09/28/2024 Surgeon: Surgeons and Role: [...] - Prior bovine pericardial patch over the [employer] was unincorporated. - Resection of prior femoral [...] Used? No * Consult Note - [facility] - 09/28/2024 9:23 AM EST Drug: [...] Analysis of the most recent level(s) using [employer] gives the following patient-specific pharmacokinetic parameters: CL: [...] Note Patient Name: Geovanna Dixon Jr. : [id number] MR#: [id number] Case Date: 09/27/2024 Surgeon: Surgeons and Role: [...] Note Patient Name: Geovanna Dixon Jr. : [id number] MR#: [id number] Case Date: 09/26/2024 Surgeon: Surgeons and Role: [...] ANAEROBIC Hayley Torres MD 09/26/2024 1702 Drains: Aurora drain between left groin to left thigh [...] HPI/Surgical Indications: 49M with history of left [employer]-BK popliteal artery bypass graft with PTFE (July [...] Note Patient Name: Geovanna Dixon Jr. : [id number] MR#: [id number] Case Date: 09/27/2024 Surgeon: Surgeons and Role: [...] 2nd toe amputation who was transferred from [facility] given concern for infected left [...] management and to provide a [facility]. Glargine 25 units administered this [...] outpatient diabetes regimen: Diabetes Provider: PCP in [facility] Medications: Lantus 50 units, lispro [...] Cunningham APRN Endocrinology Diabetes Management Service Pager: [phone] Weekends please page [phone] 80 minute visit was spent in counseling [...] surrogate would be surrogate decision maker per [place] surrogate decision making law. (Only good for 180 days) Any patient receiving care in [place] must abide by [place] law. The hierarchy for surrogate decision making [...] (i) The agent with financial power of divorce attorney or a conservator appointed in accordance [...] has the electric, gas, oil, or water userADgents threatened to shut off services in your [...] DME: none Home Address confirmed as: [address] [facility] [address] Social & Family Supports: All names listed [...] his home before. Health/Prescription Coverage: Primary Insurance: [employer] MANAGED MEDICARE Payor: [employer] MANAGED MEDICARE / Plan: [facility] MANAGED MEDICARE PPO / Product Type: *No Product type* / Secondary Insurance: N/A ; Prescription Coverage: Yes Preferred Pharmacy: [facility] - [place], [place] - [address] [facility] [address] [facility] [address] [facility] - [place], [place] - [address] [address] [place], [place] - [address] [facility] [address] [facility] [address] [facility] [address] [place] Status: Patient is a : No Primary Care Provider confirmed: JUSTIN Roberson [phone] Patient/Caregiver Goals of Treatment: patient will need [...] where referrals are placed. Provided patient with [facility] Star Quality Rating handout. They have requested referrals to: [facility]. [address] [place] [phone] Expected date of discharge: TBD Referral routed to the Religion Teacher for matching with agency/vendor and to provide [...] care as indicated. Penny ROSAS, RN Phone: [phone] Pager: [phone] * Consult Note - Stacey Thomas MD [...] extremity aching prompting him to go to [facility]. The groin pain dissipated. About a week later on 09/26 he developed left-sided groin pain prompting him to go to [facility] once again. Lab work notable for WBC count of 21, lactic acid 3.6. He underwent evaluation with a CT scan demonstrating an abscess from the left groin operative site the entire left of the graft down by the knee. He was transferred to [facility] for further care and he was [...] 3.51) performed by Thony Garcia MD at [facility] MAIN OR PRO BYPASS GRAFT OTHR, FEM-TIBIAL Left 08/01/2024 @BYPASS GRAFT, FEM-ANT TIBIAL, -POST TIBIAL, -PERONEAL, -DP W\ SYNTHETIC CONDUIT (WRVU 23.66) performed by Lisette Maldonado MD at [facility] MAIN OR PRO CABG, ARTERY-VEIN, SINGLE 01/04/2012 @CABG, VENOUS & ARTERIAL GRAFT;SINGLE VEIN GRAFT performed by INNA TOVAR at [facility] OR PRO ENDOSCOPY W/VIDEO-ASST VEIN HARVEST, CABG 01/04/2012 ENDOSCOPIC HARVEST VEIN(S) FOR CABG performed by INNA TOVAR at [facility] MAIN OR VS ARTERIOGRAM LOWER EXTREMITY VASCULAR SURGERY 07/20/2024 VS Arteriogram Lower Extremity Vascular Surgery 07/20/2024 Anabel Finney MD [facility] INTERVENTIONL RAD Medications: potassium chloride [...] Continuous Infusions: lactated Ringers 100 mL/hr (09/27/24 1204) sodium chloride 0.9% PRN Meds:.potassium chloride ER [...] admitted to SICU as a transfer from [facility] for suspected graft infection/sepsis. A/Ox4, [...] Note Patient Name: Geovanna Dixon Jr. 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 Postoperative diagnosis: left infected femoral to below knee bypass graft Procedure: Explant of infected LEFT [employer] to below-knee popliteal artery PTFE bypass graft [...] Indications: 49M with history of a left [employer]-BK popliteal artery bypass with PTFE performed in [...] 2nd toe amputation who was transferred from [facility] given concern for infected left [...] 3.51) performed by Thony Garcia MD at [facility] MAIN OR PRO BYPASS GRAFT OTHR, FEM-TIBIAL Left 08/01/2024 @BYPASS GRAFT, FEM-ANT TIBIAL, -POST TIBIAL, -PERONEAL, -DP W\ SYNTHETIC CONDUIT (WRVU 23.66) performed by Lisette Maldonado MD at [facility] MAIN OR PRO CABG, ARTERY-VEIN, SINGLE 01/04/2012 @CABG, VENOUS & ARTERIAL GRAFT;SINGLE VEIN GRAFT performed by INNA TOVAR at [facility] MAIN OR PRO ENDOSCOPY W/VIDEO-ASST VEIN HARVEST, CABG 01/04/2012 ENDOSCOPIC HARVEST VEIN(S) FOR CABG performed by INNA TOVAR at [facility] MAIN OR VS ARTERIOGRAM LOWER EXTREMITY VASCULAR SURGERY 07/20/2024 VS Arteriogram Lower Extremity Vascular Surgery 07/20/2024 Anabel Finney MD [facility] INTERVENTIONL RAD Social Hx: Social [...] 3 times daily. Use as instructed Indications: [id number] each 1 FreeStyle Lancets 28 gauge Misc [...] 2nd toe amputation who was transferred from [facility] given concern for infected left [...] PM EST Office Visit [place] [address] Isabela Hayward APRN [facility] [place] [address] 11/10/2024 10:00 AM EST Office Visit [place] [address] Dai Whitman, [employer] 11/21/2024 2:15 PM EST Office [place] [address] Dayanara Grover MD [facility] [place] [address] Pending Results Name Type Priority Associated Diagnoses [...] EST I&D Deep Abscess Bursa/Hematoma Thigh/Knee Region (49182) 09/26/2024 3:52 PM EST left infected femoral to below knee bypass graft Drain Lower Leg Deep Absc/Hematoma (17115) 09/26/2024 3:52 PM EST left infected femoral to below knee bypass graft Excision, Infec Graft, Extremity (43014) 09/26/2024 3:52 PM EST left infected femoral [...] [facility] EGFR - External 104.05 [facility] Anion Gap - External 11.6(H) [facility] Sodium - External 141 [facility] Potassium - External 4.3 [facility] Chloride - External 103 [facility] CO2 - External 26.4 [facility] Calcium - External 9.0 [facility] [...] Hernandez MD CHEMISTRY ORDERABLES Performing Organization Address City/[facility]/ZIP Co de Phone Number [address] [phone] * CK (10/16/2024) CK, Total - External 39 [facility] Blood VENOUS BLOOD SPECIMEN / Unknown 10/16/2024 Amaya Hernandez MD CHEMISTRY ORDERABLES Performing Organization Address City/[facility]/ZIP Co de Phone Number [address] [place] [phone] * (ABNORMAL) CBC (with Diff) (10/16/2024) WBC - External 10.99(H) [facility] RBC - External 3.71(L) [facility] Hemoglobin - External 10.8(L) [facility] Hematocrit - External 33.8(L) [facility] MCV - External 91 [facility] MCH - External 29.1 [facility] MCHC - External 32.0 [facility] RDWCV - External 14.2(H) [facility] Platelets - External 512(H) [facility] MPV - External 9.8 [facility] NRBC % - External 0.0 [facility] [...] 10/16/2024 Amaya Hernandez MD HEMATOLOGY ORDERABLE S [facility] [address] [place] [phone] * POC, GLUCOSE (10/10/2024 4:27 PM EST) [...] CARE TEST O GILDA Performing Organization Address City/[facility] Co de Phone Number [facility] [place] [address] * POC, GLUCOSE (10/10/2024 11:10 AM EST) [...] CARE TEST O GILDA Performing Organization Address [facility] Co de Phone Number [facility] [place] [address] * POC, GLUCOSE (10/10/2024 7:46 AM EST) [...] CARE TEST O GILDA Performing Organization Address City/[facility] Co de Phone Number [facility] [place] [address] * POC, GLUCOSE (10/10/2024 6:11 AM EST) [...] CARE TEST O RDERABLES Performing Organization Address City/[facility]/ZIP Co de Phone Number [facility] [place] [address] * CK (10/10/2024 12:33 AM EST) Pathologist [facility] Creatine Kinase 32 0 - 200 unit/L 10/10/2024 8:54 AM [facility] Blood VENOUS BLOOD SPECIMEN / Unknown Venipuncture / Unknown 10/10/2024 12:33 AM EST 10/10/2024 12:43 AM EST María Carranza APRN CHEMISTRY ORDER RANDELL Performing Organization Address City/[facility]/ZIP Co de Phone Number [facility] [place] [address] * (ABNORMAL) CBC (with Diff) (10/10/2024 12:33 AM EST) [facility] White Blood Cell 11.57(H) 4.00 - [...] [facility] [place] [phone] * (ABNORMAL) Basic Metabolic Panel (10/10/2024 12:33 [...] - 107 mMol/L 10/10/2024 1:12 AM EST [facility] Carbon Dioxide 25 22 [...] [facility] [place] [address] * Phosphorus (10/10/2024 12:33 AM EST) Phosphorus 3.8 2.5 - 4.5 mg/dL 10/10/2024 1:12 AM EST [facility] Blood VENOUS BLOOD SPECIMEN / Unknown Venipuncture / Unknown 10/10/2024 12:33 AM EST 10/10/2024 12:43 AM EST Hayley Torres MD CHEMISTRY ORDERABLES [facility] [place] [address] * Magnesium (10/10/2024 12:33 AM EST) Magnesium 0.81 0.69 - 1.07 mMol/L 10/10/2024 1:12 AM EST [facility] Blood VENOUS BLOOD SPECIMEN / Unknown Venipuncture / Unknown 10/10/2024 12:33 AM EST 10/10/2024 12:43 AM EST Hayley Torres MD CHEMISTRY ORDERABLES Performing Organization Address City/[facility]/ZIP Co de Phone Number [facility] [place] [address] * POC, GLUCOSE (10/10/2024 12:31 AM EST) [...] CARE TEST O RDERABLES Performing Organization Address [facility]/ZIP Co de Phone Number [facility] [place] [address] * POC, GLUCOSE (10/09/2024 8:16 PM EST) [...] [facility] [place] [address] * POC, GLUCOSE (10/09/2024 3:57 PM EST) [...] [facility] [place] [address] * Place PICC Line: Contact Vascular Access Page [phone] Extremity to exclude: No restrictions; Is PICC [...] to the planned procedure. Hand Hygiene: The general maintenance mechanic did perform hand hygiene prior to line insertion. Catheter type: PICC Lot number: [id number] Procedure Technique: Skin was prepped with chlorhexidine. [...] (IV Team) (10/09/2024 1:55 PM EST) Pathologist D[place]hen WORKSTATION ID [id number] RAD Anatomical Region Laterality Modality N/A Radio [...] have questions please contact the health care navigator that requested your imaging first. ? Narrative [...] who have questions please contactthe health care navigator that requested your imaging first. María Carranza APRN IMG FRANCHESKA GILBERT * POC, GLUCOSE (10/09/2024 11:40 AM EST) [facility] Glucometer, POC 180 65 - 199 mg/dL 10/09/2024 11:40 AM EST [facility] Comment:Supplemental ranges: <140 mg/dL before meals <180 mg/dL all other times of the day. Blood CAPILLARY BLOOD / Unknown 10/09/2024 11:40 AM EST 10/09/2024 11:41 AM EST Hayley Torres MD POINT OF CARE TEST O GILDA Performing Organization Address City/[facility]/ZIP Co de Phone Number [facility] [place] [address] * (ABNORMAL) POC, GLUCOSE (10/09/2024 7:35 AM [...] CARE TEST O GILDA Performing Organization Address City/[facility]/ZIP Co de Phone Number [facility] [place] [address] * POC, GLUCOSE (10/09/2024 4:26 AM EST) [...] [facility] [place] [address] * (ABNORMAL) CBC (with Diff) (10/09/2024 12:45 [...] 6.10 x10(3)/mc L 10/09/2024 1:31 AM EST [facility] Lymph % 28.3 % 10/09/2024 1:31 AM EST [facility] Lymph Absolute 3.19 0.90 - 3.20 x10(3)/mc L 10/09/2024 1:31 AM EST [facility] Monocyte % 6.8 % 10/09/2024 1:31 AM EST [facility] Monocyte Absolute 0.77 0.30 - 0.90 x10(3)/mc L 10/09/2024 1:31 AM EST [facility] Eos % 1.5 % 10/09/2024 1:31 AM [facility] Eos Absolute 0.17 0.00 - 0.40 x10(3)/mc L 10/09/2024 1:31 AM EST [facility] Basophil % 1.1 % 10/09/2024 1:31 AM EST [facility] Baso Absolute 0.12(H) 0.00 - 0.10 x10(3)/mc L 10/09/2024 1:31 AM EST [facility] Immature Gran % 0.6 % 1:31 AM [facility] Immature Gran Absolute 0.07(H) 0.00 - 0.04 x10(3)/mc L 10/09/2024 1:31 AM EST [facility] Blood VENOUS BLOOD SPECIMEN / Unknown Venipuncture / Unknown 10/09/2024 12:45 AM EST 10/09/2024 1:27 AM EST Hayley Torres MD HEMATOLOGY ORDERABLE S [facility] [place] [address] * (ABNORMAL) Basic Metabolic Panel (10/09/2024 12:45 [...] [facility] [place] [address] * Phosphorus (10/09/2024 12:45 AM EST) Phosphorus 3.9 2.5 - 4.5 mg/dL 10/09/2024 1:54 AM EST [facility] Blood VENOUS BLOOD SPECIMEN / Unknown Venipuncture / Unknown 10/09/2024 12:45 AM EST 10/09/2024 1:27 AM EST Hayley Torres MD CHEMISTRY ORDERABLES Performing Organization Address [facility] Co de Phone Number [facility] [place] [address] * Magnesium (10/09/2024 12:45 AM EST) Magnesium 0.80 0.69 - 1.07 mMol/L 10/09/2024 1:54 AM EST [facility] Blood VENOUS BLOOD SPECIMEN / Unknown Venipuncture / Unknown 10/09/2024 12:45 AM EST 10/09/2024 1:27 AM EST Hayley Torres MD CHEMISTRY ORDERABLES Performing Organization Address City/[facility]/ZIP Co de Phone Number [facility] [place] [address] * POC, GLUCOSE (10/09/2024 12:11 AM EST) [...] CARE TEST O RDERABLES Performing Organization Address [facility] Co de Phone Number [facility] [place] [address] * POC, GLUCOSE (10/08/2024 7:25 PM EST) [...] CARE TEST O RDERAHERNANDEZ Performing Organization Address [facility] de Phone Number [facility] [place] [address] * POC, GLUCOSE (10/08/2024 5:54 PM EST) [...] CARE TEST O RDERAHERNANDEZ Performing Organization Address [facility] Co de Phone Number [facility] [place] [address] * (ABNORMAL) POC, GLUCOSE (10/08/2024 4:08 PM [...] CARE TEST O GILDA Performing Organization Address [facility] de Phone Number [facility] [place] [address] * POC, GLUCOSE (10/08/2024 12:44 PM EST) [...] CARE TEST O GILDA Performing Organization Address [facility] de Phone Number [facility] [place] [address] * POC, GLUCOSE (10/08/2024 8:30 AM EST) [...] CARE TEST O GILDA Performing Organization Address [facility] de Phone Number [facility] [place] [address] * Vancomycin Level, Random (10/08/2024 5:59 AM EST) Vancomycin, Random 6.8 mg/L 2023 7:58 AM EST [facility] Comment:This level is for de termination of the patient's vancomycin bymh-rnafc-zmi-curve (AUC) value. Contact the inpatient pharmacy for interpretation. Blood VENOUS BLOOD SPECIMEN / Unknown Venipuncture / Unknown 10/08/2024 5:59 AM EST 10/08/2024 7:29 AM EST Hayley Torres MD CHEMISTRY ORDERABLES Performing Organization Address [facility]/ZIP Co de Phone Number [facility] [place] [address] * POC, GLUCOSE (10/08/2024 4:02 AM EST) Pathologist [facility] Glucometer, POC 163 65 - 199 mg/dL 10/08/2024 4:02 AM EST [facility] Comment:Supplemental ranges: <140 mg/dL before meals <180 mg/dL all other times of the day. Blood CAPILLARY BLOOD / Unknown 10/08/2024 4:02 AM EST 10/08/2024 4:02 AM EST Hayley Torres MD POINT OF CARE TEST O RDERABLES Performing Organization Address City/[facility] Co de Phone Number [facility] [place] [address] * (ABNORMAL) CBC (with Diff) (10/08/2024 12:08 AM EST) [facility] Signature White Blood Cell 10.35(H) 4.00 - [...] % 1.7 % 10/08/2024 12:29 AM EST [facility] Eos Absolute 0.18 0.00 - 0.40 x10(3)/mc L 10/08/2024 12:29 AM EST [facility] Basophil % 1.0 % 10/08/2024 12:29 AM EST [facility] [place] [address] * (ABNORMAL) Basic Metabolic Panel (10/08/2024 12:08 [...] - 107 mMol/L 10/08/2024 12:50 AM EST [facility] Carbon Dioxide 25 22 [...] [facility] [place] [address] * Phosphorus (10/08/2024 12:08 AM EST) Phosphorus 3.4 2.5 - 4.5 mg/dL 10/08/2024 12:50 AM EST [facility] Blood VENOUS BLOOD SPECIMEN / Unknown Venipuncture / Unknown 10/08/2024 12:08 AM EST 10/08/2024 12:23 AM EST Hayley Torres MD CHEMISTRY ORDERABLES [facility] [place] [address] * Magnesium (10/08/2024 12:08 AM EST) Magnesium 0.85 0.69 - 1.07 mMol/L 10/08/2024 12:50 AM EST [facility] Blood VENOUS BLOOD SPECIMEN / Unknown Venipuncture / Unknown 10/08/2024 12:08 AM EST 10/08/2024 12:23 AM EST Hayley Torres MD CHEMISTRY ORDERABLES [facility] [place] [address] * CK (10/08/2024 12:08 AM EST) Creatine Kinase 24 0 - 200 unit/L 10/08/2024 12:50 AM EST [facility] Blood VENOUS BLOOD SPECIMEN / Unknown Venipuncture / Unknown 10/08/2024 12:08 AM EST 10/08/2024 12:23 AM EST Hayley Torres MD CHEMISTRY ORDERABLES Performing Organization Address City/[facility]/ZIP Co de Phone Number [facility] [place] [address] * POC, GLUCOSE (10/08/2024 12:05 AM EST) [...] [facility] [place] [address] * POC, GLUCOSE (10/07/2024 8:29 PM EST) [...] [facility] [place] [address] * POC, GLUCOSE (10/07/2024 4:33 PM EST) [...] [facility] [place] [address] * (ABNORMAL) POC, GLUCOSE (10/07/2024 10:58 AM [...] CARE TEST O RDERABLES Performing Organization Address [facility] de Phone Number [facility] [place] [address] * (ABNORMAL) POC, GLUCOSE (10/07/2024 7:42 AM [...] CARE TEST O GILDA Performing Organization Address [facility] Co de Phone Number [facility] [place] [address] * POC, GLUCOSE (10/07/2024 3:58 AM EST) [...] CARE TEST O GILDA Performing Organization Address [facility] Co de Phone Number [facility] [place] [address] * (ABNORMAL) CBC (with Diff) (10/07/2024 12:06 [...] [facility] [place] [address] * (ABNORMAL) Basic Metabolic Panel (10/07/2024 12:06 AM EST) Glucose 145 65 - 199 mg/dL 10/07/2024 12:40 AM EST [facility] Comment:Glucose Concentratio n >=200 mg/dL plus symptoms is consistent with Diabetes Mellitus. Blood Urea Nitrogen 18 10 - 20 mg/dL 10/07/2024 12:40 AM [facility] Creatinine 0.61(L) 0.80 - 1.50 mg/dL 10/07/2024 12:40 AM EST [facility] Sodium 139 135 - [...] [facility] [place] [address] * Phosphorus (10/07/2024 12:06 AM EST) Phosphorus 4.2 2.5 - 4.5 mg/dL 10/07/2024 12:40 AM EST [facility] Blood VENOUS BLOOD SPECIMEN / Unknown Venipuncture / Unknown 10/07/2024 12:06 AM EST 10/07/2024 12:11 AM EST Hayley Torres MD CHEMISTRY ORDERABLES Performing Organization Address City/[facility]/ZIP Co de Phone Number [facility] [place] [address] * Magnesium (10/07/2024 12:06 AM EST) Magnesium 0.85 0.69 - 1.07 mMol/L 10/07/2024 12:40 AM EST [facility] Blood VENOUS BLOOD SPECIMEN / Unknown Venipuncture / Unknown 10/07/2024 12:06 AM EST 10/07/2024 12:11 AM EST Hayley Torres MD CHEMISTRY ORDERABLES Performing Organization Address City/[facility]/ZIP Co de Phone Number [facility] [place] [address] * POC, GLUCOSE (10/07/2024 12:04 AM EST) [...] CARE TEST O RDERABLES Performing Organization Address City/[facility]/ZIP Co de Phone Number [facility] [place] [address] * POC, GLUCOSE (10/06/2024 7:24 PM EST) [...] CARE TEST Stephanie VO Performing Organization Address [facility] Co de Phone Number [facility] [place] [address] * POC, GLUCOSE (10/06/2024 5:32 PM EST) [...] CARE TEST O GILDA Performing Organization Address [facility] de Phone Number [facility] [place] [address] * XR PICC Placement Over 5 Years with Imaging Guidance (IV Team) (10/06/2024 3:04 PM EST) WORKSTATION ID [id number] RAD Anatomical Region Laterality Modality N/A Radio [...] have questions please contact the health care navigator that requested your imaging first. ? Electronically signed by: Charles Hamilton MD, [facility] ??([phone]), at 10/06/2024 3:43 PM Narrative 10/06/2024 3:43 [...] who have questions please contactthe health care navigator that requested your imaging first. Hayley Torres MD IMG FLUORO ORDERABLE S * Place PICC Line: Contact Vascular Access Page [phone] Extremity to exclude: No restrictions; Is PICC [...] to the planned procedure. Hand Hygiene: The general maintenance mechanic did perform hand hygiene prior to line insertion. Catheter type: PICC Lot number: [id number] Procedure Technique: Skin was prepped with chlorhexidine. [...] CARE TEST O GILDA Performing Organization Address [facility] Co de Phone Number [facility] [place] [address] * (ABNORMAL) POC, GLUCOSE (10/06/2024 7:34 AM [...] CARE TEST O GILDA Performing Organization Address City/[facility]/ZIP Co de Phone Number [facility] [place] [address] * POC, GLUCOSE (10/06/2024 3:29 AM EST) [...] [facility] [place] [address] * Vancomycin Level, Random (10/06/2024 12:03 AM EST) [facility] Vancomycin, Random 20.5 mg/L 2023 9:00 AM [facility] Comment:This level is for de termination of the patient's vancomycin kcon-tmbkw-goa-curve (AUC) value. Contact the inpatient pharmacy for interpretation. Blood VENOUS BLOOD SPECIMEN / Unknown Venipuncture / Unknown 10/06/2024 12:03 AM EST 10/06/2024 12:15 AM EST Hayley Torres MD CHEMISTRY ORDERABLES Performing Organization Address City/[facility] Co de Phone Number [facility] [place] [address] * (ABNORMAL) CBC (with Diff) (10/06/2024 12:03 AM EST) [facility] White Blood Cell 12.26(H) 4.00 [...] MD HEMATOLOGY ORDERABLE S Performing Organization Address City/State/[facility] Co de Phone Number [facility] [place] [address] * Basic Metabolic Panel (10/06/2024 12:03 AM [...] - 15 mMol/L 10/06/2024 12:44 AM EST [facility] Calcium 8.8 8.5 - [...] [facility] [place] [address] * Phosphorus (10/06/2024 12:03 AM EST) Phosphorus 4.3 2.5 - 4.5 mg/dL 10/06/2024 12:44 AM EST [facility] Blood VENOUS BLOOD SPECIMEN / Unknown Venipuncture / Unknown 10/06/2024 12:03 AM EST 10/06/2024 12:15 AM EST Hayley Torres MD CHEMISTRY ORDERABLES [facility] [place] [address] * Magnesium (10/06/2024 12:03 AM EST) Magnesium 0.83 0.69 - 1.07 mMol/L 10/06/2024 12:44 AM EST [facility] Blood VENOUS BLOOD SPECIMEN / Unknown Venipuncture / Unknown 10/06/2024 12:03 AM EST 10/06/2024 12:15 AM EST Hayley Torres MD CHEMISTRY ORDERABLES Performing Organization Address City/[facility]/ZIP Co de Phone Number [facility] [place] [address] * POC, GLUCOSE (10/06/2024 12:02 AM EST) [...] CARE TEST O RDERABLES Performing Organization Address [facility] Co de Phone Number [facility] [place] [address] * POC, GLUCOSE (10/05/2024 7:22 PM EST) [...] CARE TEST O RDERABLES Performing Organization Address City/[facility]/ZIP Co de Phone Number [facility] [place] [address] * POC, GLUCOSE (10/05/2024 5:35 PM EST) [...] CARE TEST O GILDA Performing Organization Address City/[facility] Co de Phone Number [facility] [place] [address] * POC, GLUCOSE (10/05/2024 3:57 PM EST) [...] CARE TEST O GILDA Performing Organization Address [facility]/ZIP Co de Phone Number [facility] [place] [address] * POC, GLUCOSE (10/05/2024 11:50 AM EST) [...] [facility] [place] [address] * POC, GLUCOSE (10/05/2024 7:51 AM EST) [...] CARE TEST O GILDA Performing Organization Address City/[facility]/ZIP Co de Phone Number [facility] [place] [address] * POC, GLUCOSE (10/05/2024 4:18 AM EST) [...] CARE TEST O GILDA Performing Organization Address City/[facility]/ZIP Co de Phone Number [facility] [place] [address] * (ABNORMAL) CBC (with Diff) (10/04/2024 11:50 [...] 3.20 x10(3)/mc L 10/05/2024 12:10 AM EST [facility] Monocyte % 5.5 % 10/05/2024 12:10 AM EST [facility] Monocyte Absolute 0.70 0.30 - 0.90 x10(3)/mc L 10/05/2024 12:10 AM EST [facility] Eos % 1.6 % 10/05/2024 12:10 AM [facility] Eos Absolute 0.20 0.00 - 0.40 x10(3)/mc L 10/05/2024 12:10 AM EST WHITE [...] [facility] [place] [address] * (ABNORMAL) Basic Metabolic Panel (10/04/2024 11:50 [...] [facility] [place] [address] * Phosphorus (10/04/2024 11:50 PM EST) Phosphorus 4.2 2.5 - 4.5 mg/dL 10/05/2024 12:35 AM EST [facility] Blood VENOUS BLOOD SPECIMEN / Unknown Venipuncture / Unknown 10/04/2024 11:50 PM EST 10/05/2024 12:03 AM EST Hayley Torres MD CHEMISTRY ORDERABLES Performing Organization Address City/[facility]/ZIP Co de Phone Number [facility] [place] [address] * Magnesium (10/04/2024 11:50 PM EST) Magnesium 0.89 0.69 - 1.07 mMol/L 10/05/2024 12:35 AM EST [facility] Blood VENOUS BLOOD SPECIMEN / Unknown Venipuncture / Unknown 10/04/2024 11:50 PM EST 10/05/2024 12:03 AM EST Hayley Torres MD CHEMISTRY ORDERABLES Performing Organization Address [facility]/ZIP Co de Phone Number [facility] [place] [address] * POC, GLUCOSE (10/04/2024 11:36 PM EST) [...] CARE TEST O RDERABLES Performing Organization Address City/[facility]/ZIP Co de Phone Number [facility] [place] [address] * POC, GLUCOSE (10/04/2024 7:32 PM EST) [...] CARE TEST O RDERABLES Performing Organization Address [facility] Co de Phone Number [facility] [place] [address] * EKG 12 Lead (10/04/2024 7:14 PM EST) Ventricular rate 81 BPM MUSE SYSTEM Atrial Rate 81 BPM MUSE SYSTEM P-R Interval 174 ms MUSE SYSTEM QRS Duration 112 ms MUSE SYSTEM Q-T Interval 422 ms MUSE SYSTEM QTC Calculated (Bezet) 490 ms MUSE SYSTEM Calculated P [place] 34 degrees MUSE SYSTEM Calculated R [place] 11 degrees MUSE SYSTEM Calculated T [place] 59 degrees MUSE SYSTEM INTERPRETATION Normal sinus rhythm Cannot rule out Inferior infarct , age undetermined Nonspecific T wave abnormality Borderline ECG When compared with ECG of 29-MAY-2024 14:51, Nonspecific T wave abnormality now evident in Lateral leads Confirmed by MD Robert, Deandre Guadarrama ([id number]) on 10/05/2024 3:35:42 PM MUSE SYSTEM 10/04/2024 7:14 PM EST 10/05/2024 3:35 PM EST Hayley Torres MD ECG ORDERABLES Performing Organization Address [facility] de Phone Number MUSE SYSTEM [...] CARE TEST O RDERAHERNANDEZ Performing Organization Address [facility] de Phone Number [facility] [place] [address] * POC, GLUCOSE (10/04/2024 4:49 PM EST) [...] CARE TEST O GILDA Performing Organization Address [facility] de Phone Number [facility] [place] [address] * POC, GLUCOSE (10/04/2024 11:49 AM EST) [...] CARE TEST O GILDA Performing Organization Address [facility] Co de Phone Number [facility] [place] [address] * Vancomycin, trough (10/04/2024 7:53 AM EST) Vancomycin, Trough 19.8 10.0 - 20.0 mg/L 10/04/2024 9:16 AM EST [facility] Comment: Varies according to infection source. Blood VENOUS BLOOD SPECIMEN / Unknown Venipuncture / Unknown 10/04/2024 7:53 AM EST 10/04/2024 8:11 AM EST Hayley Torres MD CHEMISTRY ORDERABLES Performing Organization Address [facility] Co de Phone Number [facility] [place] [address] * POC, GLUCOSE (10/04/2024 7:51 AM EST) [...] CARE TEST O RDERABLES Performing Organization Address [facility] de Phone Number [facility] [place] [address] * POC, GLUCOSE (10/04/2024 3:53 AM EST) [facility] Signature Glucometer, POC 90 65 - 199 mg/dL 10/04/2024 3:53 AM EST [facility] Comment:Supplemental ranges: <140 mg/dL before meals <180 mg/dL all other times of the day. Blood CAPILLARY BLOOD / Unknown 10/04/2024 3:53 AM EST 10/04/2024 3:53 AM EST Hayley Torres MD POINT OF CARE TEST O GILDA Performing Organization Address [facility] Co de Phone Number [facility] [place] [address] * (ABNORMAL) CBC (with Diff) (10/04/2024 12:08 AM EST) [facility] White Blood Cell 12.58(H) 4.00 - [...] 3.20 x10(3)/mc L 10/04/2024 12:51 AM EST [facility] Monocyte % 5.4 % [...] [facility] [place] [address] * (ABNORMAL) Basic Metabolic Panel (10/04/2024 12:08 [...] [facility] [place] [address] * Phosphorus (10/04/2024 12:08 AM EST) Phosphorus 3.7 2.5 - 4.5 mg/dL 10/04/2024 12:53 AM EST [facility] Blood VENOUS BLOOD SPECIMEN / Unknown Venipuncture / Unknown 10/04/2024 12:08 AM EST 10/04/2024 12:15 AM EST Hayley Torres MD CHEMISTRY ORDERABLES Performing Organization Address City/[facility]/ZIP Co de Phone Number [facility] [place] [address] * Magnesium (10/04/2024 12:08 AM EST) Magnesium 0.89 0.69 - 1.07 mMol/L 10/04/2024 12:53 AM EST [facility] Blood VENOUS BLOOD SPECIMEN / Unknown Venipuncture / Unknown 10/04/2024 12:08 AM EST 10/04/2024 12:15 AM EST Hayley Torres MD CHEMISTRY ORDERABLES Performing Organization Address City/[facility]/ZIP Co de Phone Number [facility] [place] [address] * POC, GLUCOSE (10/04/2024 12:01 AM EST) [...] CARE TEST O RDERABLES Performing Organization Address City/[facility]/ZIP Co de Phone Number [facility] [place] [address] * POC, GLUCOSE (10/03/2024 7:56 PM EST) [...] CARE TEST O GILDA Performing Organization Address City/[facility]/ZIP Co de Phone Number [facility] [place] [address] * POC, GLUCOSE (10/03/2024 5:29 PM EST) [...] CARE TEST O GILDA Performing Organization Address [facility] Co de Phone Number [facility] [place] [address] * POC, GLUCOSE (10/03/2024 12:54 PM EST) [...] CARE TEST O GILDA Performing Organization Address City/[facility]/ZIP Co de Phone Number [facility] [place] [address] * POC, GLUCOSE (10/03/2024 7:59 AM EST) [...] CARE TEST O RDERAHERNANDEZ Performing Organization Address City/[facility]/ZIP Co de Phone Number [facility] [place] [address] * POC, GLUCOSE (10/03/2024 5:32 AM EST) [...] CARE TEST O GILDA Performing Organization Address City/[facility]/ZIP Co de Phone Number [facility] [place] [address] * POC, GLUCOSE (10/03/2024 4:16 AM EST) [...] WHITE [facility] [place] [address] * (ABNORMAL) POC, GLUCOSE (10/03/2024 2:02 AM EST) [facility] Glucometer, POC 225(H) 65 - 199 mg/dL 10/03/2024 2:02 AM EST [facility] Comment:Supplemental ranges: <140 mg/dL before meals <180 mg/dL all other times of the day. Blood CAPILLARY BLOOD / Unknown 10/03/2024 2:02 AM EST 10/03/2024 2:02 AM EST Hayley Torres MD POINT OF CARE TEST O RDERABLES Performing Organization Address [facility]/ZIP Co de Phone Number [facility] [place] [address] * (ABNORMAL) CBC (with Diff) (10/03/2024 12:27 AM EST) [facility] White Blood Cell 15.33(H) 4.00 [...] 0.10 x10(3)/mc L 10/03/2024 12:51 AM EST [facility] Immature Gran % 5.7 % 12:51 AM [facility] Immature Gran Absolute 0.87(H) 0.00 - 0.04 x10(3)/mc L 10/03/2024 12:51 AM [facility] Blood VENOUS BLOOD SPECIMEN / Unknown Venipuncture / Unknown 10/03/2024 12:27 AM EST 10/03/2024 12:47 AM EST Hayley Torres MD HEMATOLOGY ORDERABLE S [facility] [place] [address] * (ABNORMAL) Basic Metabolic Panel (10/03/2024 12:27 [...] - 10.5 mg/dL 10/03/2024 1:14 AM EST [facility] Est Glomerular Filtration Rate - Male 124 mL/min/1. 73 m?? 10/03/2024 1:14 AM EST [facility] [place] [address] * Phosphorus (10/03/2024 12:27 AM EST) Phosphorus 3.5 2.5 - 4.5 mg/dL 10/03/2024 1:14 AM EST [facility] Blood VENOUS BLOOD SPECIMEN / Unknown Venipuncture / Unknown 10/03/2024 12:27 AM EST 10/03/2024 12:47 AM EST Hayley Torres MD CHEMISTRY ORDERABLES [facility] [place] [address] * Magnesium (10/03/2024 12:27 AM EST) Magnesium 0.83 0.69 - 1.07 mMol/L 10/03/2024 1:14 AM EST [facility] Blood VENOUS BLOOD SPECIMEN / Unknown Venipuncture / Unknown 10/03/2024 12:27 AM EST 10/03/2024 12:47 AM EST Hayley Torres MD CHEMISTRY ORDERABLES [facility] [place] [place] [address] * (ABNORMAL) POC, GLUCOSE (10/03/2024 12:13 AM [...] CARE TEST O RDERABLES Performing Organization Address City/[facility]/ZIP Co de Phone Number [facility] [place] [address] * POC, GLUCOSE (10/02/2024 8:17 PM EST) [...] [facility] [place] [address] * POC, GLUCOSE (10/02/2024 6:22 PM EST) [...] CARE TEST O GILDA Performing Organization Address City/[facility]/ZIP Co de Phone Number [facility] [place] [address] * POC, GLUCOSE (10/02/2024 5:01 PM EST) [...] CARE TEST O GILDA Performing Organization Address [facility] Co de Phone Number [facility] [place] [address] * POC, GLUCOSE (10/02/2024 3:05 PM EST) [...] [facility] [place] [address] * POC, GLUCOSE (10/02/2024 11:12 AM EST) [...] CARE TEST O GILDA Performing Organization Address City/[facility]/ZIP Co de Phone Number [facility] [place] [address] * POC, GLUCOSE (10/02/2024 8:12 AM EST) [...] CARE TEST O GILDA Performing Organization Address City/[facility]/ZIP Co de Phone Number [facility] [place] [address] * POC, GLUCOSE (10/02/2024 4:19 AM EST) [...] [facility] [place] [address] * Phosphorus (10/02/2024 12:41 AM EST) [facility] Phosphorus 4.1 2.5 - 4.5 mg/dL 10/02/2024 1:21 AM [facility] Blood VENOUS BLOOD SPECIMEN / Unknown Venipuncture / Unknown 10/02/2024 12:41 AM EST 10/02/2024 12:45 AM EST Hayley Torres MD CHEMISTRY ORDERABLES [facility] [place] [address] * Magnesium (10/02/2024 12:41 AM EST) [facility] Magnesium 0.85 0.69 - 1.07 mMol/L 10/02/2024 1:21 AM [facility] Blood VENOUS BLOOD SPECIMEN / Unknown Venipuncture / Unknown 10/02/2024 12:41 AM EST 10/02/2024 12:45 AM EST Hayley Torres MD CHEMISTRY ORDERABLES [facility] [place] [place] [address] * (ABNORMAL) Basic Metabolic Panel (10/02/2024 12:41 AM EST) [facility] Glucose 113 65 - 199 mg/dL [...] - 145 mMol/L 10/02/2024 1:21 AM EST [facility] Potassium 3.9 3.5 - 5.0 mMol/L 10/02/2024 1:21 AM EST [facility] Chloride 105 98 - [...] [facility] [place] [address] * (ABNORMAL) CBC (with Diff) (10/02/2024 12:41 AM EST) White Blood Cell 10.93(H) 4.00 - 9.50 x10(3)/mc L 10/02/2024 1:04 AM EST [facility] Red Blood Cell 3.30(L) [...] [facility] [place] [address] * POC, GLUCOSE (10/02/2024 12:40 AM EST) [facility] Signature Glucometer, POC 116 65 - 199 mg/dL 10/02/2024 12:41 AM [facility] Comment:Supplemental ranges: <140 mg/dL before meals <180 mg/dL all other times of the day. Blood CAPILLARY BLOOD / Unknown 10/02/2024 12:40 AM EST 10/02/2024 12:41 AM EST Hayley Torres MD POINT OF CARE TEST O GILDA Performing Organization Address City/[facility]/ZIP Co de Phone Number [facility] [place] [address] * POC, GLUCOSE (10/01/2024 8:11 PM EST) [...] CARE TEST O GILDA Performing Organization Address [facility] Co de Phone Number [facility] [place] [address] * POC, GLUCOSE (10/01/2024 6:00 PM EST) [...] CARE TEST O GILDA Performing Organization Address City/[facility]/ZIP Co de Phone Number [facility] [place] [place] [address] * POC, GLUCOSE (10/01/2024 3:53 PM EST) [...] CARE TEST O GILDA Performing Organization Address City/[facility]/ZIP Co de Phone Number [facility] [place] [place] [address] * POC, GLUCOSE (10/01/2024 2:25 PM EST) Glucometer, POC 117 65 - 199 mg/dL 10/01/2024 2:25 PM EST [facility] Comment:Supplemental ranges: <140 mg/dL before meals <180 mg/dL all other times of the day. Blood CAPILLARY BLOOD / Unknown 10/01/2024 2:25 PM EST 10/01/2024 2:25 PM EST Hayley Trores MD POINT OF CARE TEST O GILDA Performing Organization Address [facility] Co de Phone Number [facility] [place] [address] * POC, GLUCOSE (10/01/2024 11:43 AM EST) [...] [facility] [place] [address] * POC, GLUCOSE (10/01/2024 9:43 AM EST) [...] CARE TEST O GILDA Performing Organization Address City/[facility] Co de Phone Number [facility] [place] [place] [address] * POC, GLUCOSE (10/01/2024 7:48 AM EST) [...] CARE TEST O GILDA Performing Organization Address [facility] Co de Phone Number [facility] [place] [address] * POC, GLUCOSE (10/01/2024 4:25 AM EST) [...] CARE TEST O GILDA Performing Organization Address City/[facility]/ZIP Co de Phone Number [facility] [place] [address] * Phosphorus (10/01/2024 2:02 AM EST) Pathologist [facility] Phosphorus 3.9 2.5 - 4.5 mg/dL 10/01/2024 7:16 AM EST [facility] Blood VENOUS BLOOD SPECIMEN / Unknown Venipuncture / Unknown 10/01/2024 2:02 AM EST 10/01/2024 2:10 AM EST Hayley Torres MD CHEMISTRY ORDERABLES Performing Organization Address [facility] de Phone Number [facility] [place] [address] * (ABNORMAL) Scan, Peripheral Blood (10/01/2024 2:02 AM EST) [facility] RBC Morphology Abnormal 10/01/2024 2:55 [...] MD HEMATOLOGY ORDERABLE S Performing Organization Address City/[facility] Co de Phone Number [facility] [place] [address] * Magnesium (10/01/2024 2:02 AM EST) [facility] Magnesium 0.79 0.69 - 1.07 mMol/L 10/01/2024 2:41 AM EST [facility] Blood VENOUS BLOOD SPECIMEN / Unknown Venipuncture / Unknown 10/01/2024 2:02 AM EST 10/01/2024 2:10 AM EST Hayley Torres MD CHEMISTRY ORDERABLES [facility] [place] [place] [address] * (ABNORMAL) Basic Metabolic Panel (10/01/2024 2:02 AM EST) Glucose 122 65 - 199 mg/dL 10/01/2024 2:41 AM EST [facility] [place] - 5.0 mMol/L 10/01/2024 2:41 AM EST [facility] Chloride 105 98 - 107 mMol/L 10/01/2024 2:41 AM [facility] Carbon Dioxide 24 22 - 31 mMol/L 10/01/2024 2:41 AM [facility] Anion Gap 9 5 - 15 mMol/L 10/01/2024 2:41 AM [facility] Calcium 8.1(L) 8.5 - 10.5 mg/dL 10/01/2024 2:41 AM EST [facility] [facility] [facility] [place] [place] [address] * (ABNORMAL) CBC (with Diff) (10/01/2024 2:02 [...] 0.40 x10(3)/mc L 10/01/2024 2:55 AM EST [facility] Comment:This is an appended report. These results have been appended to a previously preliminary verified report. Basophil % 0.6 % 10/01/2024 2:55 AM [facility] [...] Immature Gran % 8.4 % 2:55 AM [facility] Comment:This is an appended report. These results have been appended to a previously preliminary verified report. Immature Gran Absolute 0.85(H) 0.00 - 0.04 x10(3)/mc L 10/01/2024 2:55 AM [facility] Comment:This is an appended report. These results have been appended to a previously preliminary verified report. Blood VENOUS BLOOD SPECIMEN / Unknown Venipuncture / Unknown 10/01/2024 2:02 AM EST 10/01/2024 2:10 AM EST Hayley Torres MD HEMATOLOGY ORDERABLE S [facility] [place] [place] [address] * POC, GLUCOSE (10/01/2024 12:32 AM EST) Glucometer, POC 179 65 - 199 mg/dL 10/01/2024 12:32 AM [facility] Comment:Supplemental ranges: <140 mg/dL before meals <180 mg/dL all other times of the day. Blood CAPILLARY BLOOD / Unknown 10/01/2024 12:32 AM EST 10/01/2024 12:32 AM EST Hayley Torres MD POINT OF CARE TEST O RDERAHERNANDEZ Performing Organization Address [facility] Co de Phone Number [facility] [place] [place] [address] * POC, GLUCOSE (09/30/2024 7:37 PM EST) [...] CARE TEST O GILDA Performing Organization Address [facility] de Phone Number [facility] [place] [address] * POC, GLUCOSE (09/30/2024 4:29 PM EST) [...] CARE TEST O GILDA Performing Organization Address [facility] Co de Phone Number [facility] [place] [place] [address] * POC, GLUCOSE (09/30/2024 12:16 PM EST) [...] CARE TEST O GILDA Performing Organization Address [facility] de Phone Number [facility] [place] [address] * POC, GLUCOSE (09/30/2024 7:58 AM EST) [...] CARE TEST O GILDA Performing Organization Address [facility] de Phone Number [facility] [place] [address] * Potassium (09/30/2024 6:27 AM EST) Potassium 3.9 3.5 - 5.0 mMol/L 09/30/2024 7:10 AM EST [facility] Blood VENOUS BLOOD SPECIMEN / Unknown Venipuncture / Unknown 09/30/2024 6:27 AM EST 09/30/2024 6:35 AM EST Hayley Torres MD CHEMISTRY ORDERABLES Performing Organization Address City/[facility] Co de Phone Number [facility] [place] [address] * Vancomycin, trough (09/30/2024 6:27 AM EST) Vancomycin, Trough 14.1 10.0 - 20.0 mg/L 09/30/2024 7:10 AM EST [facility] Comment: Varies according to infection source. Blood VENOUS BLOOD SPECIMEN / Unknown Venipuncture / Unknown 09/30/2024 6:27 AM EST 09/30/2024 6:35 AM EST Hayley Torres MD CHEMISTRY ORDERABLES Performing Organization Address [facility] Co de Phone Number [facility] [place] [address] * POC, GLUCOSE (09/30/2024 3:51 AM EST) [...] CARE TEST O RDERABLES Performing Organization Address [facility] Co de Phone Number [facility] [place] [address] * Magnesium (09/29/2024 11:52 PM EST) Magnesium 0.85 0.69 - 1.07 mMol/L 09/30/2024 12:25 AM EST [facility] Blood VENOUS BLOOD SPECIMEN / Unknown Venipuncture / Unknown 09/29/2024 11:52 PM EST 09/29/2024 11:58 PM EST Hayley Torres MD CHEMISTRY ORDERABLES Performing Organization Address City/[facility] Co de Phone Number [facility] [place] [address] * (ABNORMAL) Basic Metabolic Panel (09/29/2024 11:52 [...] [facility] [place] [address] * (ABNORMAL) CBC (with Diff) (09/29/2024 11:52 [...] [facility] [place] [address] * POC, GLUCOSE (09/29/2024 11:51 PM EST) Glucometer, POC 134 65 - 199 mg/dL 09/29/2024 11:51 PM EST [facility] Comment:Supplemental ranges: <140 mg/dL before meals <180 mg/dL all other times of the day. Blood CAPILLARY BLOOD / Unknown 09/29/2024 11:51 PM EST 09/29/2024 11:51 PM EST Hayley Torres MD POINT OF CARE TEST O RDERABLES Performing Organization Address City/[facility]/ZIP Co de Phone Number [facility] [place] [address] * Blood culture (09/29/2024 9:24 PM EST) Blood Culture No growth at 120 hours 10/04/2024 11:01 PM EST [facility] Blood VENOUS BLOOD SPECIMEN / Unknown Venipuncture / Unknown 09/29/2024 9:24 PM EST 09/29/2024 9:34 PM EST Hayley Torres MD MICROBIOLOGY - BLOOD ORDERABLES Performing Organization Address City/[facility]/ZIP Co de Phone Number [facility] [place] [address] * Blood culture (09/29/2024 9:24 PM EST) Blood Culture No growth at 120 hours 10/04/2024 11:01 PM EST [facility] Blood VENOUS BLOOD SPECIMEN / Unknown Venipuncture / Unknown 09/29/2024 9:24 PM EST 09/29/2024 9:34 PM EST Marko Dickson MD MICROBIOLOGY - BLOOD ORDERABLES Performing Organization Address City/[facility]/ZIP Co de Phone Number [facility] [place] [address] * (ABNORMAL) POC, GLUCOSE (09/29/2024 7:35 PM [...] CARE TEST O RDERAHERNANDEZ Performing Organization Address City/[facility]/ZIP Co de Phone Number [facility] [place] [address] * POC, GLUCOSE (09/29/2024 6:48 PM EST) [...] CARE TEST O GILDA Performing Organization Address [facility] Co de Phone Number [facility] [place] [address] * POC, GLUCOSE (09/29/2024 4:06 PM EST) [...] CARE TEST O GILDA Performing Organization Address City/[facility]/ZIP Co de Phone Number [facility] [place] [address] * POC, GLUCOSE (09/29/2024 11:49 AM EST) [...] [facility] [place] [address] * (ABNORMAL) POC, GLUCOSE (09/29/2024 7:53 AM [...] [facility] [place] [address] * POC, GLUCOSE (09/29/2024 3:45 AM EST) [...] CARE TEST O RDERABLES Performing Organization Address City/[facility]/ZIP Co de Phone Number [facility] [place] [address] * (ABNORMAL) Hemoglobin A1c (09/28/2024 11:51 PM EST) Hemoglobin A1c 9.7(H) 4.3 - 5.6 % 09/29/2024 9:54 AM EST [facility] Comment: Per ADA guidelines, [...] red blood cell turnover may not be client service representative of glycemic control. Reference Interval: 4.3 - 5.6% 5.7 - 6.4%: Consistent with prediabetes >=6.5%: Consistent with diagnosis of diabetes mellitus Estimated Average Glucose 232 mg/dL 09/29/2024 9:54 AM EST [facility] Blood VENOUS BLOOD SPECIMEN / Unknown Venipuncture / Unknown 09/28/2024 11:51 PM EST 09/28/2024 11:56 PM EST Hayley Torres MD CHEMISTRY ORDERABLES Performing Organization Address [facility] Co de Phone Number [facility] [place] [address] * Magnesium (09/28/2024 11:51 PM EST) Magnesium 0.72 0.69 - 1.07 mMol/L 09/29/2024 12:27 AM EST [facility] Blood VENOUS BLOOD SPECIMEN / Unknown Venipuncture / Unknown 09/28/2024 11:51 PM EST 09/28/2024 11:57 PM EST Hayley Torres MD CHEMISTRY ORDERABLES [facility] [place] [address] * (ABNORMAL) Basic Metabolic Panel (09/28/2024 11:51 [...] [facility] [place] [address] * (ABNORMAL) CBC (with Diff) (09/28/2024 11:51 [...] Neutrophil % 86.7 % 09/29/2024 12:00 AM [facility] Neutrophil Absolute (ANC) - Automated [...] 0.04 x10(3)/mc L 09/29/2024 12:00 AM EST [facility] Blood VENOUS BLOOD SPECIMEN / Unknown Venipuncture / Unknown 09/28/2024 11:51 PM EST 09/28/2024 11:56 PM EST Hayley Torres MD HEMATOLOGY ORDERABLE S Performing Organization Address City/[facility]/ZIP Co de Phone Number [facility] [place] [address] * (ABNORMAL) POC, GLUCOSE (09/28/2024 11:45 PM [...] CARE TEST O GILDA Performing Organization Address City/[facility]/ZIP Co de Phone Number [facility] [place] [address] * (ABNORMAL) POC, GLUCOSE (09/28/2024 10:00 PM [...] [facility] [place] [address] * (ABNORMAL) POC, GLUCOSE (09/28/2024 7:51 PM [...] CARE TEST O GILDA Performing Organization Address City/[facility]/ZIP Co de Phone Number [facility] [place] [address] * Blood culture (09/28/2024 5:49 PM EST) Blood Culture No growth at 120 hours 10/03/2024 7:01 PM EST [facility] Blood VENOUS BLOOD SPECIMEN / Unknown Venipuncture / Unknown 09/28/2024 5:49 PM EST 09/28/2024 5:53 PM EST Marko Dickson MD MICROBIOLOGY - BLOOD ORDERABLES Performing Organization Address [facility] Co de Phone Number [facility] [place] [address] * (ABNORMAL) POC, GLUCOSE (09/28/2024 4:42 PM [...] CARE TEST O GILDA Performing Organization Address City/[facility]/ZIP Co de Phone Number [facility] [place] [address] * (ABNORMAL) Blood Gas, Arterial POC (09/28/2024 3:16 PM [facility]) pH, Arterial 7.42 7.35 - 7.45 09/28/2024 [...] - 1.33 mmol/L 09/28/2024 3:17 PM EST [facility] Glucose, Arterial 163 65 - 199 mg/dL 09/28/2024 3:17 PM EST [facility] Comment:Glucose Concentratio n >=200 mg/dL plus symptoms is consistent with Diabetes Mellitus. Blood ARTERIAL BLOOD / Unknown 09/28/2024 3:16 PM EST 09/28/2024 3:17 PM EST Hayley Torres MD POINT OF CARE TEST O RDERABLES [facility] [place] [address] * Surgical Pathology (09/28/2024 2:10 PM EST) Case Report Surgical Pathology Report ? Case: [id number] ? Authorizing Provider: ??Hayley Torres MD ? Collected: ? 09/28/2024 1410 ? Ordering Location: ? Main Operating Room [facility] ?? Received: ?09/28/2024 1644 ? [facility] ? Pathologist: ? Aziza Packer [...] [facility] Palm Gatherer STRUCTURE OF LEFT LOWER LIMB / Unknown 09/28/2024 2:10 PM EST 09/28/2024 4:44 PM EST Comment:Left femoral proxima l graft Biomedical device (physical object) STRUCTURE OF LEFT LOWER LIMB / Unknown 09/28/2024 2:17 PM EST 09/28/2024 4:44 PM EST Comment:Left distal BK pop g raft Hayley Trores MD PATHOLOGY/CYTOLOGY O RDERABLES [facility] [place] [address] * Potassium (09/28/2024 10:45 AM EST) [facility] Potassium 4.6 3.5 - 5.0 mMol/L 09/28/2024 12:26 PM EST [facility] Blood VENOUS BLOOD SPECIMEN / Unknown Venipuncture / Unknown 09/28/2024 10:45 AM EST 09/28/2024 10:53 AM EST Marko Dickson MD CHEMISTRY ORDERABLES [facility] [place] [address] * POC, GLUCOSE (09/28/2024 7:57 AM EST) [...] [facility] [place] [address] * ELEN, legs, multiple levels (09/28/2024 7:44 AM EST) VB Text Report Department: Vascular Surgery Lab Patient: [id number] (GEOVANNA DIXON) CPT: 26585 Referring Physician: HERMILA SNIDER ?? Phone: Indications: [...] EST Narrative 09/28/2024 9:15 AM EST [address] [place] [address] ? Echocardiogram Report Name: GEOVANNA DIXON JR ?Study Date: 09/28/2024 06:56 AMBP: 132/75 mmHg ? Patient Location: ^[facility]08^A : 1975 ? Height: 179 cm ? Account: [id number] Age: 49 yrs ? Weight: 108 kg Gender: Male ?BSA: 2.3 m2 Ordering Physician: Marko Dickson MD Referring Physician: PATRIC GILES Performed By: Faiza Cole Reason For Study: Vascular graft infection, initial encounter; MRSA bacteremia Interpreting Fellow: Jame Lares. Exam Location: [facility]. Interpretation Summary -Limited study [...] 05/29/2024, no significant changes. Procedure Limited - 91638. Doppler - 28132. Color Doppler - 76028. Suboptimal quality. This study is limited because [...] Note David Lomeli MD - 09/28/2024 [address] [place] [address] Echocardiogram Report Name: GEOVANNA DIXON, JR Study Date: 406:56 AMBP: 132/75 mmHg Patient Location:[facility]^A : 1975 Height: 179 cm Account: [id number] Age: 49 yrs Weight: 108 kg Gender: Male BSA: 2.3 m2 Ordering Physician: Marko Dickson MD Referring Physician: PATRIC GILES Performed By: Faiza Cole Reason For Study: Vascular graft infection, initial encounter; MRSAbacteremia Interpreting Fellow: Jame Lares. Exam Location: [facility]. Interpretation Summary -Limited study [...] 05/29/2024, no significant changes. Procedure Limited - 90167. Doppler - 90055. Color Doppler - 76233. Suboptimalquality. This study is limited because of [...] max annabelle: 101.0 cm/sec MV A max annbaelle: 102.6 cm/sec MV E/A: 0.98 Lat Peak [...] Dickson MD CHEMISTRY ORDERABLES Performing Organization Address City/[facility]/ZIP Co de Phone Number [facility] [place] [address] * (ABNORMAL) Potassium (09/28/2024 4:55 AM EST) Potassium 2.9(LLL) 3.5 - 5.0 mMol/L 09/28/2024 5:31 AM EST [facility] Blood VENOUS BLOOD SPECIMEN / Unknown Venipuncture / Unknown 09/28/2024 4:55 AM EST 09/28/2024 5:01 AM EST Marko Dickson MD CHEMISTRY ORDERABLES Performing Organization Address [facility] Co de Phone Number [facility] [place] [address] * (ABNORMAL) POC, GLUCOSE (09/28/2024 3:54 AM [...] CARE TEST O RDERABLES Performing Organization Address City/[facility]/ZIP Co de Phone Number [facility] [place] [address] * Magnesium (09/27/2024 11:58 PM EST) Magnesium 0.77 0.69 - 1.07 mMol/L 09/28/2024 12:38 AM EST [facility] Blood VENOUS BLOOD SPECIMEN / Unknown Venipuncture / Unknown 09/27/2024 11:58 PM EST 09/28/2024 12:10 AM EST Hayley Torres MD CHEMISTRY ORDERABLES [facility] [place] [address] * (ABNORMAL) Basic Metabolic Panel (09/27/2024 11:58 [...] [facility] [place] [address] * (ABNORMAL) CBC (with Diff) (09/27/2024 11:58 [...] 1.4 % 11/21/202 4 12:14 AM EST [facility] Immature Gran Absolute 0.24(H) 0.00 - 0.04 x10(3)/mc L 09/28/2024 12:14 AM EST [facility] Blood VENOUS BLOOD SPECIMEN / Unknown Venipuncture / Unknown 09/27/2024 11:58 PM EST 09/28/2024 12:10 AM EST Hayley Torres MD HEMATOLOGY ORDERABLE S [facility] [place] [address] * (ABNORMAL) POC, GLUCOSE (09/27/2024 11:46 PM [...] [facility] [place] [address] * (ABNORMAL) Blood culture (09/27/2024 9:33 PM [...] [facility] [place] [address] * POC, GLUCOSE (09/27/2024 7:51 PM EST) [facility] Glucometer, POC 142 65 - 199 mg/dL 09/27/2024 7:51 PM EST [facility] Comment:Supplemental ranges: <140 mg/dL before meals <180 mg/dL all other times of the day. Blood CAPILLARY BLOOD / Unknown 09/27/2024 7:51 PM EST 09/27/2024 7:51 PM EST Marko Dickson MD POINT OF CARE TEST O RDERABLES Performing Organization Address City/[facility]/ZIP Co de Phone Number [facility] [place] [address] * (ABNORMAL) Hemogram (09/27/2024 5:55 PM EST) [facility] White Blood Cell 19.38(H) 4.00 - 9.50 [...] 357 x10(3)/mc L 09/27/2024 6:16 PM EST [facility] Mean Platelet Volume 9.4 [...] [facility] [place] [address] * POC, GLUCOSE (09/27/2024 5:48 PM EST) [facility] Glucometer, POC 171 65 - 199 mg/dL 09/27/2024 5:48 PM EST [facility] Comment:Supplemental ranges: <140 mg/dL before meals <180 mg/dL all other times of the day. Blood CAPILLARY BLOOD / Unknown 09/27/2024 5:48 PM EST 09/27/2024 5:48 PM EST Marko Dickson MD POINT OF CARE TEST O RDERABLES [facility] [place] [address] * Anaerobic Culture (09/27/2024 4:54 PM EST) [facility] Anaerobic Culture No anaerobic organisms isolated 10/01/2024 3:54 PM EST [facility] Tissue STRUCTURE OF LEFT THIGH / Unknown 09/27/2024 4:54 PM EST Comment:Infected explanted l eft leg bypass graft Hayley Torres MD MICROBIOLOGY - GENER AL ORDERABLES Performing Organization Address City/[facility] Co de Phone Number [facility] [place] [address] * (ABNORMAL) Tissue Culture, Aerobic Only (09/27/2024 [...] - GENER AL ORDERABLES Performing Organization Address City/State/[facility] Co de Phone Number [facility] [place] [address] * Fungus culture (09/27/2024 4:54 PM EST) Fungus Culture No fungus isolated 10/31/2024 7:55 AM EST [facility] Tissue STRUCTURE OF LEFT THIGH / Unknown 09/27/2024 4:54 PM EST 09/27/2024 5:23 PM EST Comment:Infected explanted l eft leg bypass graft Hayley Torres MD MICROBIOLOGY - GENER AL ORDERABLES Performing Organization Address [facility] Co de Phone Number [facility] [place] [address] * POC, GLUCOSE (09/27/2024 3:23 PM EST) [...] CARE TEST O RDERABLES Performing Organization Address City/[facility]/ZIP Co de Phone Number [facility] [place] [address] * POC, GLUCOSE (09/27/2024 11:29 AM EST) [...] [facility] [place] [address] * CT Lower Extremity w Contrast Left (09/27/2024 9:16 AM EST) [facility] Signature WORKSTATION ID [id number] RAD Anatomical Region Laterality Modality Hip, Leg, [...] have questions please contact the health care navigator that requested your imaging first. ? Narrative [...] wedged between the vastus medialis and adductor Marshall muscle. This tracks into the popliteal fossa [...] who have questions please contactthe health care navigator that requested your imaging first. Rose Wright APRN IMG CT ORDERABL ES * POC, GLUCOSE (09/27/2024 7:51 AM EST) [facility] Glucometer, POC 194 65 - 199 mg/dL 09/27/2024 7:51 AM EST [facility] Comment:Supplemental ranges: <140 mg/dL before meals <180 mg/dL all other times of the day. Blood CAPILLARY BLOOD / Unknown 09/27/2024 7:51 AM EST 09/27/2024 7:51 AM EST Marko Dickson MD POINT OF CARE TEST O RDERABLES [facility] [place] [address] * (ABNORMAL) MRSA PCR Screen (09/27/2024 7:51 AM EST) Pathologist [facility] MRSA PCR Detected(A ) 09/27/2024 11:56 AM EST [facility] Swab BOTH ANTERIOR NARES / Unknown Non Blood Collection / Unknown 09/27/2024 7:51 AM EST 09/27/2024 8:05 AM EST Narrative [facility] - 09/27/2024 11:56 AM EST This test was performed using the Xpert MRSA NxG test kit and is run on the [employer] GeneXpert Dx System. This test is cleared by the U.S. Food and Drug Administration for clinical use and its performance characteristics have been verified by the [facility] at [facility]. Marko Dickson MD MOLECULAR ORDERABLES [facility] [place] [address] * Potassium (09/27/2024 7:51 AM EST) Potassium 3.5 3.5 - 5.0 mMol/L 09/27/2024 9:09 AM EST [facility] Blood VENOUS BLOOD SPECIMEN / Unknown Venipuncture / Unknown 09/27/2024 7:51 AM EST 09/27/2024 8:05 AM EST Marko Dickson MD CHEMISTRY ORDERABLES Performing Organization Address City/[facility]/ZIP Co de Phone Number [facility] [place] [address] * (ABNORMAL) Potassium (09/27/2024 5:05 AM EST) Potassium 3.4(L) 3.5 - 5.0 mMol/L 09/27/2024 5:32 AM EST [facility] Blood VENOUS BLOOD SPECIMEN / Unknown Venipuncture / Unknown 09/27/2024 5:05 AM EST 09/27/2024 5:09 AM EST Marko Dickson MD CHEMISTRY ORDERABLES Performing Organization Address City/[facility]/ZIP Co de Phone Number [facility] [place] [address] * POC, GLUCOSE (09/27/2024 3:52 AM EST) [...] CARE TEST O GILDA Performing Organization Address City/[facility]/ZIP Co de Phone Number [facility] [place] [address] * (ABNORMAL) POC, GLUCOSE (09/27/2024 1:59 AM [...] CARE TEST O GILDA Performing Organization Address [facility] Co de Phone Number [facility] [place] [address] * (ABNORMAL) Magnesium (09/27/2024 12:01 AM EST) Magnesium 0.68(L) 0.69 - 1.07 mMol/L 09/27/2024 12:35 AM EST [facility] Blood VENOUS BLOOD SPECIMEN / Unknown Venipuncture / Unknown 09/27/2024 12:01 AM EST 09/27/2024 12:05 AM EST Hayley Torres MD CHEMISTRY ORDERABLES Performing Organization Address City/[facility]/ZIP Co de Phone Number [facility] [place] [address] * (ABNORMAL) Basic Metabolic Panel (09/27/2024 12:01 [...] [facility] [place] [address] * (ABNORMAL) CBC (with Diff) (09/27/2024 12:01 [...] MD HEMATOLOGY ORDERABLE S Performing Organization Address [facility]/ZIP Co de Phone Number [facility] [place] [address] * (ABNORMAL) POC, GLUCOSE (09/26/2024 11:59 PM [...] CARE TEST Stephanie VO Performing Organization Address [facility] Co de Phone Number [facility] [place] [address] * (ABNORMAL) POC, GLUCOSE (09/26/2024 7:34 PM [...] CARE TEST O GILDA Performing Organization Address [facility] Co de Phone Number [facility] [place] [address] * (ABNORMAL) Blood culture (09/26/2024 6:45 PM [...] [facility] [place] [address] * (ABNORMAL) Sonicated Tissue/Implant Culture (09/26/2024 5:16 [...] Dickson MD MICROBIOLOGY - GENER AL ORDERABLES [facility] [place] [address] * Anaerobic Culture (09/26/2024 5:02 PM EST) [...] - GENER AL ORDERABLES Performing Organization Address City/[facility]/ZIP Co de Phone Number [facility] [place] [address] * (ABNORMAL) Abscess/Wound Aspirate Culture, Aerobic Only [...] [facility] [place] [address] * Fungus culture (09/26/2024 5:02 PM EST) [...] - GENER AL ORDERABLES Performing Organization Address City/[facility]/ZIP Co de Phone Number [facility] [place] [address] * Anaerobic Culture (09/26/2024 4:50 PM EST) Anaerobic Culture No anaerobic organisms isolated 09/30/2024 3:51 PM EST [facility] Abscess LEFT INGUINAL REGION STRUCTURE / Unknown Non Blood Collection / Unknown 09/26/2024 4:50 PM EST Comment:Left Groin Fluid Hayley Torres MD MICROBIOLOGY - GENER AL ORDERABLES Performing Organization Address [facility] Co de Phone Number [facility] [place] [address] * (ABNORMAL) Abscess/Wound Aspirate Culture, Aerobic Only [...] - GENER AL ORDERABLES Performing Organization Address [facility] Co de Phone Number [facility] [place] [address] * Fungus culture (09/26/2024 4:50 PM EST) Pathologist [facility] Fungus Culture No fungus isolated 10/24/2024 7:54 AM [facility] Abscess LEFT INGUINAL REGION STRUCTURE / Unknown Non Blood Collection / Unknown 09/26/2024 4:50 PM EST 09/26/2024 4:56 PM EST Comment:Left Groin Fluid Hayley Torres MD MICROBIOLOGY - GENER AL ORDERABLES Performing Organization Address [facility] de Phone Number [facility] [place] [address] * (ABNORMAL) Blood Gas, Arterial POC (09/26/2024 [...] [facility] [place] [address] * (ABNORMAL) POC, GLUCOSE (09/26/2024 4:29 PM [...] [facility] [place] [address] * (ABNORMAL) Blood Gas, Venous POC (09/26/2024 [...] 0.4 <=1.5 % 09/26/2024 3:30 PM EST [facility] Sodium, Venous 127(L) 135 [...] [facility] [place] [address] * (ABNORMAL) Scan, Peripheral Blood (09/26/2024 2:39 PM EST) RBC Morphology Abnormal 09/26/2024 3:21 PM [facility] Platelet Estimate Normal Normal 09/26/2024 3:21 PM [facility] Microcyte 1-5 /HPF 09/26/2024 3:21 PM [facility] Platelet Clumps Present(A) (none) 3:21 PM EST [facility] WBC MORPHOLOGY See Comment(A) (none) 09/26/2024 3:21 PM EST [facility] Comment:Dohle BodiesToxic Gr anulation Blood VENOUS BLOOD SPECIMEN / Unknown Venipuncture / Unknown 09/26/2024 2:39 PM EST 09/26/2024 2:50 PM EST Marko Dickson MD HEMATOLOGY ORDERABLE S [facility] [place] [address] * ABORH RECHECK (PATIENT HISTORY FOUND) (09/26/2024 2:39 PM EST) [facility] ABORH Recheck Progress Complete 09/26/2024 5:01 PM EST [facility] Blood VENOUS BLOOD SPECIMEN / Unknown Venipuncture / Unknown 09/26/2024 2:39 PM EST 09/26/2024 2:56 PM EST Marko Dickson MD BLOOD BANK LAB ORDER RANDELL Performing Organization Address City/[facility]/ZIP Co de Phone Number [facility] [place] [address] * (ABNORMAL) Hepatic Function Panel (09/26/2024 2:39 PM EST) [facility] Albumin 3.1(L) 3.2 - 5.2 [...] - 0.3 mg/dL 09/26/2024 4:23 PM EST [facility] Protein, Total 7.0 6.1 - 8.0 g/dL 09/26/2024 4:23 PM [facility] Blood VENOUS BLOOD SPECIMEN / Unknown Venipuncture / Unknown 09/26/2024 2:39 PM EST 09/26/2024 2:50 PM EST Marko Dickson MD CHEMISTRY ORDERABLES [facility] [place] [address] * (ABNORMAL) Basic Metabolic Panel (09/26/2024 2:39 [...] mL/min/1. 73 m?? 09/26/2024 4:32 PM EST [facility] Torres MD CHEMISTRY ORDERABLES Performing Organization Address City/State/[facility] Co de Phone Number [facility] [place] [address] * (ABNORMAL) CBC (with Diff) (09/26/2024 2:39 PM EST) White Blood Cell 22.76(H) 4.00 - 9.50 x10(3)/mc L 09/26/2024 3:21 PM [facility] Red Blood Cell 4.20(L) 4.58 [...] 0.90 x10(3)/mc L 09/26/2024 3:21 PM EST WHITE [...] 0.10 x10(3)/mc L 09/26/2024 3:21 PM EST WHITE [...] 0.04 x10(3)/mc L 09/26/2024 3:21 PM EST [facility] Comment:This is an appended report. These results have been appended to a previously preliminary verified report. Blood VENOUS BLOOD SPECIMEN / Unknown Venipuncture / Unknown 09/26/2024 2:39 PM EST 09/26/2024 2:50 PM EST Hayley Torres MD HEMATOLOGY ORDERABLE S [facility] [place] [address] * Phosphorus (09/26/2024 2:39 PM EST) [facility] Phosphorus 3.2 2.5 - 4.5 mg/dL 09/26/2024 4:05 PM EST [facility] Blood VENOUS BLOOD SPECIMEN / Unknown Venipuncture / Unknown 09/26/2024 2:39 PM EST 09/26/2024 2:50 PM EST Marko Dickson MD CHEMISTRY ORDERABLES [facility] [place] [address] * (ABNORMAL) Magnesium (09/26/2024 2:39 PM EST) [facility] Magnesium 0.65(L) 0.69 - 1.07 mMol/L 09/26/2024 4:05 PM EST [facility] Blood VENOUS BLOOD SPECIMEN / Unknown Venipuncture / Unknown 09/26/2024 2:39 PM EST 09/26/2024 2:50 PM EST Marko Dickson MD CHEMISTRY ORDERABLES [facility] [place] [address] * Type and screen ([facility]/CGP/BABITA) (09/26/2024 2:39 PM EST) [facility] ABORH Type A POSITIVE 09/26/2024 3:45 PM EST [facility] PATIENT HISTORY Found 09/26/2024 3:45 PM EST [facility] Expires at [id number] on: 09/29/2024 09/26/2024 3:45 PM EST [facility] ANTIBODY SCREEN AUTOMATED Negative 09/26/2024 3:45 PM EST [facility] T&S only valid at [facility] 09/26/2024 3:45 PM EST [facility] Blood VENOUS BLOOD SPECIMEN / Unknown Venipuncture / Unknown 09/26/2024 2:39 PM EST 09/26/2024 2:56 PM EST Narrative [facility] - 09/26/2024 3:45 PM EST This Type and Screen result is only valid at the [facility] Marko Dickson MD BLOOD BANK LAB ORDER RANDELL [facility] [place] [address] * (ABNORMAL) Fibrinogen (09/26/2024 2:39 PM EST) [facility] Fibrinogen >1,000(H) 200 - 393 mg/dL 09/26/2024 3:09 PM EST [facility] Comment: A fibrinogen level >100 mg/dL is adequate for hemostasis in most patients without underlying bleeding disorders. Blood VENOUS BLOOD SPECIMEN / Unknown Venipuncture / Unknown 09/26/2024 2:39 PM EST 09/26/2024 2:50 PM EST Marko Dickson MD HEMATOLOGY ORDERABLE S Performing Organization Address City/[facility]/ZIP Co de Phone Number [facility] [place] [address] * APTT (09/26/2024 2:39 PM EST) [facility] Partial Thromboplastin Time 36 25 - [...] [facility] [place] [address] * (ABNORMAL) Prothrombin Time (09/26/2024 2:39 PM EST) [facility] Prothrombin Time 21.6(H) 9.4 - 12.5 sec [...] MD HEMATOLOGY ORDERABLE S Performing Organization Address City/[facility]/ZIP Co de Phone Number [facility] [place] [address] * (ABNORMAL) POC, GLUCOSE (09/26/2024 2:36 PM EST) [facility] Glucometer, POC 268(H) 65 - 199 mg/dL 09/26/2024 2:36 PM EST [facility] Comment:Supplemental ranges: <140 mg/dL before meals <180 mg/dL all other times of the day. Blood CAPILLARY BLOOD / Unknown 09/26/2024 2:36 PM EST 09/26/2024 2:36 PM EST Marko Dickson MD POINT OF CARE TEST O RDERABLES [facility] [place] [address] * (ABNORMAL) Blood culture (09/26/2024 2:22 PM EST) [facility] Blood Culture Methicillin Resistant Staphylococcus aureus(Critical) VITEK 2 METHOD 10/07/2024 7:40 AM EST [facility] Comment: detected by PCR Isolate saved. If future testing is required, contact the Microbiology Tube Puller. Gram Stain Aerobic Bottle: Gram positive cocci [...] [facility] [place] [id number] * Request For 2nd Read CT Lower Extremity (09/26/2024 1:50 PM EST) [employer] WORKSTATION ID [id number] RAD Anatomical Region Laterality Modality Hip, Leg, [...] have questions please contact the health care navigator that requested your imaging first. ? Narrative 09/26/2024 3:01 PM EST EXAMINATION: REQUEST FOR 2ND READ CT LOWER EXTREMITY CLINICAL HISTORY: Pt s/p LLE femoral-below knee popliteal bypass with PTFE graft, c/f infection surrounding graft, en route to [facility] for possible vascular surgery intervention; Sending Institution [facility]; Date of exam [id number]; [...] [place] for possiblevascular surgery intervention; Sending Institution [facility]; Date of exam [id number]; [...] who have questions please contactthe health care navigator that requested your imaging first. Marko Dickson [...] the most appropriate choice: ID Approval by Amaay Hernandez [id number] (New Bag - Provider: Jordyn [...] Routine documented in this encounter Care Teams Elevator Technician Relationship Specialty Start Date End Date Charles Romero [place] [address] PCP - General Internal Medicine 09/18/24 documented as of this encounter
--- OUTSIDE RECORDS SUMMARY | 2024-10-31 17:05 | XMS_ITS | Encounter Summary ---
Author Organization [facility] Address [facility] [place] [address] Care Team Providers Care Finance Lecturer Name Role Phone None Primary Care Provider Unavailabl e Encounter Details Date Type Department Care Team (Late st Contact Info) Description 09/06/2024 Notes Only [place] [id number] Fallon Lemus RN Social History Tobacco Use Types Packs/Day Years Used Date Smoking Tobacco: Every Day Cigarettes 1 25 Started: 12/28/1986; Last attempted to quit: 12/28/2011 Smokeless Tobacco: Never Alcohol Use Standard Drinks/Week Comments No 0 (1 standard drink = 0.6 oz pur e alcohol) [facility] Utilities Answer Date Recorded In the past 12 months has [facility] [employer], gas, oil, or water [employer] threatened to shut off services in your [...] living in a long-term (including now)? No 08/02/2024 IPV Inpatient Questions [...] Dr. Dickson regarding the earlier call from [place]. Wound dressing should be as follows: Daily: Bostonia 1st and 5th toe with Betadine Bostonia 2nd to amp site with Betadine Cover amp site wound with band-aid Wrap leg with candice wrap Patient to continue wearing off loading shoe until wound completely healed. Spoke with Lux's mother and advised that a new off-loading shoe would be sent to them. This note will be routed to [facility] documented in this encounter Plan of Treatment Upcoming Encounters Date Type Department Care Team (Late st Contact Info) Description 11/09/2024 1:30 PM EST Office Visit [place] [address] Isabela Hayward APRN [facility] [place] [address] 11/10/2024 10:00 AM EST Office Visit [place] [address] Dai Whitman, SCIENCE FACULTY MEMBER 11/21/2024 2:15 PM EST Office Visit [place] [address] Dayanara Grover MD [facility] [place] [address] documented as of this encounter Visit Diagnoses Not on filedocumented in this encounter Care Teams Finance Lecturer Relationship Specialty Start Date End Date None None PCP - General 05/27/24 09/17/24 documented as of this encounter
--- OUTSIDE RECORDS SUMMARY | 2024-10-31 17:05 | XMS_ITS | Encounter Summary ---
Author Organization [facility] Address [facility] [place] [address] Care Team Providers Care Manager E Commerce Name Role Phone Charles Romero Primary Care Provider + Encounter Details Date Type Department Care Team (Late st Contact Info) Description 09/20/2024 Ancillary Procedure Radiology Library at [facility] [place] [address] Marko Dickson MD [facility] [place] [address] Social History Tobacco Use Types Packs/Day Years Used Date Smoking Tobacco: Every Day Cigarettes 1 25 Started: 12/28/1986; Last attempted to quit: 12/28/2011 Smokeless Tobacco: Never Alcohol Use Standard Drinks/Week Comments No 0 (1 standard drink = 0.6 oz pur e alcohol) [facility] Utilities Answer Date Recorded In the past 12 months has [employer], gas, oil, or water e-volo threatened to shut off services in your [...] PM EST Office [place] [phone] Isabela Hayward, RESHMA [facility] [place] [address] 11/10/2024 10:00 AM EST Office [place] [phone] Dai Whitman APRN 11/21/2024 2:15 PM EST Office [place] [phone] Dayanara Grover MD [facility] [place] [address] documented as of this encounter Procedures Procedure Name Priority Date/Time Associated Diagnosis Comments FILM LIBRARY STORAGE ONLY CT LOWER EXTREMITY Routine 09/20/2024 12:00 AM EST documented in this encounter Results * Film Library- Storage Only CT Lower Extremity (09/20/2024 12:00 AM EST) Narrative [facility] - 09/26/2024 1:48 PM EST This exam is auto-finalizing. It's purpose is for storage only. Marko Dickson MD G FILM LIBRARY ORD ERABLES [place], [place] documented in this encounter Visit Diagnoses Not on filedocumented in this encounter Care Teams Manager E Commerce Relationship Specialty Start Date End Date Charles Romero PA [address] [place] [address] PCP - General Internal Medicine 09/18/24 documented as of this encounter
--- OUTSIDE RECORDS SUMMARY | 2024-10-31 17:05 | XMS_ITS | Encounter Summary ---
Author Organization [facility] [place] [address] Care Team Providers Care Inseam Trimming Machine Operator Name Role Phone Charles Romero [...] PM EST Office Visit Infectious Disease at [place] [phone] Isabela Hayward, RESHMA [facility] DR [place] [address] 11/10/2024 10:00 AM EST Office Visit [place] [address] Dai Whitman APRN 11/21/2024 2:15 PM EST Office Visit [place] [address] Dayanara Grover MD [facility] DR [place] [address] documented as of this encounter Visit Diagnoses Not on filedocumented in this encounter Care Teams Inseam Trimming Machine Operator Relationship Specialty Start Date End Date Charles Romero PA [facility] [place] [address] PCP - General Internal Medicine 09/18/24 documented as of this encounter
--- OUTSIDE RECORDS SUMMARY | 2024-10-31 17:05 | XMS_ITS | Encounter Summary ---
Author Organization [facility] Address [facility] [place] [address] Care Team Providers Care Fire Captain Name Role Phone Charles Romero Primary Care Provider + Encounter Details Date Type Department Care Team (Late st Contact Info) Description 09/26/2024 Notes [place] [address] Marko Dickson MD [facility] [place] [place] [address] Social History Tobacco Use Types Packs/Day Years Used Date Smoking Tobacco: Every Day Cigarettes 1 25 Started: 12/28/1986; Last attempted to quit: 12/28/2011 Smokeless Tobacco: Never Alcohol Use Standard Drinks/Week Comments No 0 (1 standard drink = 0.6 oz pur e alcohol) [facility] Utilities Answer Date Recorded In the [...] PM EST Office [place] [phone] Isabela Hayward, RESHMA [facility] [place] [address] 11/10/2024 10:00 AM EST Office [place] [phone] Dai Whitman APRN 11/21/2024 2:15 PM EST Office [place] [phone] Dayanara Grover MD [facility] [place] [address] documented as of this encounter Visit Diagnoses Not on filedocumented in this encounter Care Teams Fire Captain Relationship Specialty Start Date End Date Charles Romero PA [address] [place] [address] PCP - General Internal Medicine 09/18/24 documented as of this encounter
--- OUTSIDE RECORDS SUMMARY | 2024-10-31 17:05 | XMS_ITS | Encounter Summary ---
Author Organization [facility] Address [facility] [place] [address] Care Team Providers Care Eyeletter Name Role Phone Charles Romero Primary Care Provider + Encounter Details Date Type Department Care Team (Late st Contact Info) Description 09/26/2024 1:55 PM EST Ancillary Procedure Radiology Library at [facility] [place] [address] Marko Dickson MD [facility] [place] [address] Social History Tobacco Use Types Packs/Day Years Used Date Smoking Tobacco: Every Day Cigarettes 1 25 Started: 12/28/1986; Last attempted to quit: 12/28/2011 Smokeless Tobacco: Never Alcohol Use Standard Drinks/Week Comments No 0 (1 standard drink = 0.6 oz pur e alcohol) [facility] Utilities Answer Date Recorded In [...] PM EST Office Visit [place] [phone] Isabela Hayward APRN [facility] [place] [address] 11/10/2024 10:00 AM EST Office Visit [place] [phone] Dai Whitman APRN 11/21/2024 2:15 PM EST Office Visit [place] [phone] Dayanara Grover MD [facility] [place] [address] documented as of this encounter Procedures Procedure Name Priority Date/Time Associated Diagnosis Comments REQUEST FOR 2ND READ CT LOWER EXTREMITY Routine 09/26/2024 1:50 PM EST documented in this encounter Results * Request For 2nd Read CT Lower Extremity (09/26/2024 1:50 PM EST) komoot Signature WORKSTATION ID [id number] [facility] Anatomical Region Laterality Modality Hip, [...] who have questions please contact the health menagerie caretaker that requested your imaging first. ? Electronically signed by: Lisette Bruno MD, [facility] ([phone]), at 09/26/2024 3:01 PM Narrative 09/26/2024 3:01 [...] example on series 3, image 8 and 645, 949, 212, 882. No other rim-enhancing fluid collection is [...] patients who have questions please contactthe health menagerie caretaker that requested your imaging first. Electronically signed by: Lisette Bruno MD, [facility]([phone]), at 09/26/2024 3:01 PM Marko Dickson MD IMG OUTSIDE INTERPRE TATION ORDERABLES documented in this encounter Visit Diagnoses Not on filedocumented in this encounter Care Teams Eyeletter Relationship Specialty Start Date End Date Charles Romero [place] [address] [place] [address] PCP - General Internal Medicine 09/18/24 documented as of this encounter
--- OUTSIDE RECORDS SUMMARY | 2024-10-31 17:05 | XMS_ITS | Encounter Summary ---
Author Organization [facility] Address [facility] Jean Marie [address] [address] Care Team Providers Care Peer Support Specialist Name Role Phone Charles Romero Primary Care Provider + Encounter Details Date Type Department Care Team (Late st Contact Info) Description 09/26/2024 10:25 AM EST Ancillary Procedure Radiology Library at [facility] [address] Marko Dickson MD [facility] [place] [address] Social History Tobacco Use Types Packs/Day Years Used Date Smoking Tobacco: Every Day Cigarettes 1 25 Started: 12/28/1986; Last attempted to quit: 12/28/2011 Smokeless Tobacco: Never Alcohol Use Standard Drinks/Week Comments No 0 (1 standard drink = 0.6 oz pur e alcohol) [facility] Utilities Answer Date Recorded In the [...] PM EST Office [place] [phone] Isabela Hayward APRN [facility] [place] [address] 11/10/2024 10:00 AM EST Office [place] [phone] Dai Whitman APRN 11/21/2024 2:15 PM EST Office [place] [phone] Dayanara Grover MD [facility] [place] [address] documented as of this encounter Procedures Procedure Name Priority Date/Time Associated Diagnosis Comments FILM LIBRARY STORAGE ONLY CT LOWER EXTREMITY Routine 09/26/2024 10:21 AM EST documented in this encounter Results * Film Library- Storage Only CT Lower Extremity (09/26/2024 10:21 AM EST) Narrative [facility] - 09/26/2024 10:21 AM EST This exam is auto-finalizing. It's purpose is for storage only. Marko Dickson MD G FILM LIBRARY ORD ERABLES Performing Organization Address City/State/[facility] Co de Phone Number [place], [place] documented in this encounter Visit Diagnoses Not on filedocumented in this encounter Care Teams Peer Support Specialist Relationship Specialty Start Date End Date Charles Romero [place] [place] [address] PCP - General Internal Medicine 09/18/24 documented as of this encounter
--- OUTSIDE RECORDS SUMMARY | 2024-10-31 17:06 | XMS_ITS | Encounter Summary ---
Author Organization [facility] [place] [address] Care Team Providers Care Cable Television Line Technician Name Role Phone None Primary Care Provider Unavailabl e Reason for Referral * Home Health Care (Routine) - Authorized Specialty Diagnoses / Procedures Referred By William moses Referred To Contact Diagnoses Critical limb ischemia of left lower extremity María Carranza APRN [facility] [place] [address] [facility] & [address] [address] Referral ID Status Reason Start Date Expiration Date Visits Requested Visits Authorized [id number] Authorized Consult, Test & Treat 08/03/2024 01/30/2025 999 999 Reason for Visit * Auth/Cert (Routine) Specialty Diagnoses / Procedures Referred By William moses Referred To Contact Diagnoses CLTI Procedures PRO BYPASS GRAFT OTHR, FEM-TIBIAL @BYPASS GRAFT, FEM-ANT TIBIAL, -POST TIBIAL, -PERONEAL, -DP W\ SYNTHETIC CONDUIT (WRVU 23.66) Lisette Maldonado MD [facility] [place] [address] [facility] Referral ID Status Reason Start Date Expiration Date Visits Re quested Visits Authorized [id number] 1 1 Encounter Details Date Type Department Care Team (Latest Contact Info) Description 08/01/2024 5:32 AM EDT - 08/03/2024 4:45 PM EDT Hospital Encounter Surgical Unit Level 4 Wing D at [facility] [place] [address] Lisette Maldonado MD [facility] DR [place] [address] Critical limb ischemia of left lower extremity; [...] alcohol) [facility] Utilities Answer Date Recorded In the past 12 months has th e [employer]ox[employer], gas, oil, or water [employer] threatened to shut off services in your [...] and left foot pain who presents to [facility] for left lower extremity bypass Previously from [...] patient has been previously admitted to the [facility] Vascular Surgery service on 05/28 [...] Process Instructions: There is no in-house vascular trestle mainternance laborer available on weeknights (5pm-8am), weekends, or holidays. IF THIS IS A REQUEST FOR AN EMERGENT STUDY DURING THOSE HOURS, please have the senior provider responsible for the patient page the Vascular Surgery Fellow/Senior Resident retail zone specialist to discuss options. Scheduling Instructions: Questions: Graft description/location: s/p BL femoral endarterectomies with illiac stent grafts Indication for study/signs & symptoms: improved patency/flow Question to be answered: improved patency/flow Preferred location?: [facility] Clinics Referral to Home Health [[id number] Custom] As directed Process Instructions: If no progress note charted, please enter Clinical details in comments. Scheduling Instructions: Comments: Please evaluate Lux Dixon Jr. for admission to Home [facility]. [address] [place] [phone] (home) Date of : 1975 Inpatient DOCUMENTATION FOR VNA SERVICES (INCLUDING THOSE PATIENTS WITH MEDICARE COVERAGE REQUIRING HOME VNA SERVICES AND/OR HOSPICE SERVICES) PATIENT'S LOCATION: Lux Dixon Jr. [address] [facility] [id number] (home) Cell: Telephone Information: Choir Member's Name: self In discussion with the attending physician, it is certified that this patient is under their care and that they, or a Nurse Practitioner, Clinical Nurse specialist or Physician Mri Technician who is working directly with them, [...] SACHIN bandage daily) HOME HEALTH CARE AGENCY: [facility]. [address] [place] [phone] START OF CARE: within 24-48 hours of [...] For any problems or questions please call [phone] For issues on weeknights after 5pm and weekends please call [phone] and ask for the Vascular Fellow retail zone specialist. documented in this encounter Discharge Instructions * [...] For any problems or questions please call [phone] For issues on weeknights after 5pm and weekends please call [phone] and ask for the Vascular Fellow retail zone specialist. documented in this encounter Medications at Time [...] and left foot pain who presents to [facility] for left iliofemoral endarterectomy and left femoral [...] by Thony Garcia MD at [facility] OR PRO BYPASS GRAFT OTHR, FEM-TIBIAL Left 08/01/2024 @BYPASS GRAFT, FEM-ANT TIBIAL, -POST TIBIAL, -PERONEAL, -DP W\ SYNTHETIC CONDUIT (WRVU 23.66) performed by Lisette Maldonado MD at [facility] OR PRO CABG, ARTERY-VEIN, SINGLE 01/04/2012 @CABG, VENOUS & ARTERIAL GRAFT;SINGLE VEIN GRAFT performed by INNA TOVAR at [facility] OR PRO ENDOSCOPY W/VIDEO-ASST VEIN HARVEST, CABG 01/04/2012 ENDOSCOPIC HARVEST VEIN(S) FOR CABG performed by INNA TOVAR at [facility] OR VS ARTERIOGRAM LOWER EXTREMITY VASCULAR SURGERY 07/20/2024 VS Arteriogram Lower Extremity Vascular Surgery 07/20/[address] [facility] INTERVENTIONL RAD Active Non-Hospital Problems Diagnosis [...] ray PT, Doctor of Physical Therapy Pager: [phone] Physical Therapy Inpatient Rehabilitation Department * María Carranza, TEMPERING MACHINE OPERATOR - 08/03/2024 11:30 AM EDT Vascular Surgery Progress Note Lux Dixon Jr. is a 49 y.o. male with a history of CAD s/p CABG, DM, obesity, NSTEMI, HTN, HLD, depression, tobacco use, substance use and left foot pain who presents to [facility] for left iliofemoral endarterectomy and left femoral [...] Q24H insulin lispro 1-6 Units Subcutaneous Q4H [facility] insulin lispro 0-19 Units Subcutaneous TID WC aspirin EC 81 mg Oral Daily atorvastatin 80 mg Oral QPM losartan 50 mg Oral Daily metoprolol succinate XL 25 mg Oral Daily pantoprazole EC 40 mg Oral Daily protriptyline 10 mg Oral Q8H sodium chloride 0.9 % (flush) 5 mL Intravenous BID acetaminophen 975 mg Oral Q6H [facility] senna-docusate 2 tablet Oral BID insulin glargine (Lantus;Semglee) (100 unit/mL) subcutaneous injection 50 Units Subcutaneous Nightly heparin (porcine) 5,000 Units Subcutaneous Q8H [facility] Operations This Hospitalization 08/01: Left iliofemoral endarterectomy Left femoral to below-knee popliteal artery bypass with 7mm ringed PTFE Interim - HDS, NAEO, pain well controlled, 100% trays, BM 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 is a 49 y.o. male with a history of CAD s/p CABG, DM, obesity, NSTEMI, HTN, HLD, depression, tobacco use, substance use and left foot pain who presents to [facility] for left iliofemoral endarterectomy and left femoral [...] Phase 2 criteria met. Report given to [facility] DAVID Deshpande. * Amy Almaraz RN [...] and left foot pain who presents to [facility] for left lower extremity bypass S: Lux [...] by Thony Garcia MD at [facility] OR PRO CABG, ARTERY-VEIN, SINGLE 01/04/2012 @CABG, VENOUS & ARTERIAL GRAFT;SINGLE VEIN GRAFT performed by INNA TOVAR at [facility] OR PRO ENDOSCOPY W/VIDEO-ASST VEIN HARVEST, CABG 01/04/2012 ENDOSCOPIC HARVEST VEIN(S) FOR CABG performed by INNA TOVAR at [facility] OR Social History Socioeconomic History [...] 149 Dorsalis Pedis (Ankle) Artery 83 0.55 [place]-Biphasic Posterior Tibial (Ankle) Artery 87 0.57 Monophasic [...] and left foot pain who presents to [facility] for left lower extremity bypass. Will proceed with planned operation. -Consent signed, questions answered -Preop checklist complete Dennis Guzman MD Vascular Fellow PGY7, pager [phone] Associated attestation - Lisette Maldonado MD - [...] - 08/03/2024 2:40 PM EDT Home with [facility] CARE MANAGEMENT FINAL DISCHARGE NOTE Chart reviewed, care reviewed with primary team and at interdisciplinary rounds. Patient is medically ready for discharge to [facility]. Needs for Transition of Care: Plan for discharge is: Agency Referrals & Follow-up Care: Contact information for follow-up [address] [address] Transportation: family or friend will provide Functional status prior to admission: Independent Home Environment: Others in the home: sibling(s), other relative(s). Current Living Arrangements: home/apartment/condo. Accessibility Concerns:2 level home includng basement. Current Functional Ability: Assistive Equipment DME used at home: crutches Patient is insured through: Primary Insurance: [employer] MANAGED MEDICARE Payor: [employer] MEDICARE / Plan: [employer] MANAGED MEDICARE PPO / Product Type: *No [...] where referrals are placed. Provided patient with [facility] Star Quality Rating for Home care hand out. Patient requests referral to : [facility] [employer]. [address] [place] [address] Expected date of discharge: 08/03. Referral routed to the Commercial Lawn Specialist for matching with agency/vendor and to provide [...] television smartphone Taken 08/01/20242126 Pain Management Interventions: ondizh-kbe-escuk dosing utilized care clustered pain management plan [...] consult to Social Work Ordered at: 08/01/24 7178 Reason for Consult: Substance / alcohol abuse Reason for Consult? Patient has scored positive for Audit or DAST assessments Reason for Consult Substance / alcohol abuse Additional information Admitted to cocaine use Social Work Response: HEAD OF ADVERTISING reviewed chart. DAST score of 3. TEMPERING MACHINE OPERATOR to see for DAST. However, HEAD OF ADVERTISING gave pt Consumer???s Guide for Substance Use Treatment in the [facility]. Pt refuses tx but accepted booklet to read. Follow Up Needed: Nothing further regarding this consult as TEMPERING MACHINE OPERATOR will see pt due to DAST [...] tbd Patient is insured through: Primary Insurance: [employer] MANAGED MEDICARE Payor: [employer] MANAGED MEDICARE / Plan: [employer] MANAGED MEDICARE PPO / Product Type: *No [...] Office of Care Management Initial Assessment DENISSE Lcuiano reviewed record and discussed patient with Care [...] surrogate would be surrogate decision maker per [place] surrogate decision making law. (Only good for 180 days) Any patient receiving care in [place] must abide by [place] law. The hierarchy for surrogate decision making [...] (i) The agent with financial power of patent attorney or a conservator appointed in accordance with [facility] 464-A. (j) The guardian of the [...] In the past 12 months has the [employer], gas, oil, or water [employer] threatened to shut off services in your [...] Current DME: [facility] Home Address confirmed as: [address] [place] [address] Social & Family Supports: All names listed [...] Guide for Substance Use Treatment in the [facility]. Refuses sub tx but took the booklet to read over Health/Prescription Coverage: Primary Insurance: [employer] MANAGED MEDICARE Payor: [employer]GED MEDICARE / Plan: [employer] MA[employer]GED MEDICARE PPO / Product Type: *No Product type* / Secondary Insurance: N/A ; Prescription Coverage: Yes Preferred Pharmacy: [facility] [place] [id number] - [place], [place] - [address] [place] [address] [address] [facility] [address] [id number] - [place], [place] - [address] [address] Status: Patient is a : No Primary [...] and left foot pain who presents to [facility] for left lowerextremity bypass. Previous admission at [facility] (07/14-07/21). 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 Incision made at the PIP joint space, amputation performed at the transmetatarsal space. Per H&P note 07/14, patient had also been previously admitted to the [facility] Vascular Surgery service on 05/28 [...] of this encounter: 101.6 kg (224 lb). [place] Body Weight (IBW) (kg): 75.45 Wt Readings [...] at bedside. 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 Pt did not provide [...] during previous admission and enjoyed these - investment underwriter offered to send Glucerna as a lower carbohydrate option pt was agreeable to this(investment underwriter sent one today for pt to [...] an evening meal which is usually takeout (liquor grinder mill operator or pizza). Drinks up to 18 cans of Mountain Dew/day or 1.5 gallons of milk daily. No data found. Nutrition Focused Physical Exam: Performed . Subcutaneous Fat Loss Orbital region: None present Upper arm region (triceps/biceps): Mild Thoracic and Lumbar regions (ribs, lower back, and maxillary line): None present Lean Muscle Loss Adventism region (temporalis muscle): Mild Clavicle bone region [...] Diversional Activities: television smartphone Pain Management Interventions: raicyw-ugu-pxinf dosing utilized care clustered pain management plan [...] and ADLs]: scott Surveillance [continuous indirect monitoring[facility] Patient-specific fall prevention interventions for sensory [...] Maldonado MD - 08/01/2024 8:30 AM EDT [facility] Operative Note Patient Name: Lux Dixon Jr. : [id number] MR#: [id number] Case Date: 08/01/2024 Surgeon: Surgeons and Role: [...] foot pain with ulcers who presents to [facility] for left lower extremity bypass. Procedure Description: [...] proximally and the SFA distally. Theexternal iliac, SURVEILLANCE MONITOR and proximal SFA were endarterectomized in the [...] PM EST Office [place] [address] Isabela Hayward, RESHMA [facility] DR [place]FECTIOUS [place] [address] 11/10/2024 10:00 AM EST Office [place] [phone] Dai Whitman APRN 11/21/2024 2:15 PM EST Office [place] [phone] Dayanara Grover MD [facility] ENDOCRINOLOGY [place] [address] Scheduled Referrals Name Type Priority Associated Diagnoses [...] 8:04 AM EDT Bypass Graft Othr, Fem-Tibial ([id number]) 08/01/2024 7:34 AM EDT CLTI POC, GLUCOSE Routine 08/01/2024 6:23 AM EDT BYPASS GRAFT, FEM-ANT TIBIAL, -POST TIBIAL, -PERONEAL, -DP W\ SYNTHETIC CONDUIT Routine 08/01/2024 6:03 AM EDT IMPLANTABLE DEVICES SCAN 08/01/2024 12:00 AM EDT documented in this encounter Results * POC, GLUCOSE (08/03/2024 12:27 PM EDT) [facility] Signature Glucometer, POC 81 65 - 199 mg/dL 08/03/2024 12:27 PM EDT [facility] Comment:Supplemental ranges: <140 mg/dL before meals <180 mg/dL all other times of the day. Blood CAPILLARY BLOOD / Unknown 08/03/2024 12:27 PM EDT 08/03/2024 12:27 PM EDT Lisette Maldonado MD POINT OF CARE TEST ORDERABLES [facility] [place] [address] * POC, GLUCOSE (08/03/2024 8:06 AM EDT) Glucometer, POC 137 65 - 199 mg/dL 08/03/2024 8:06 AM EDT [facility] Comment:Supplemental ranges: <140 mg/dL before meals <180 mg/dL all other times of the day. Blood CAPILLARY BLOOD / Unknown 08/03/2024 8:06 AM EDT 08/03/2024 8:06 AM EDT Lisette Maldonado MD POINT OF CARE TEST ORDERABLES Performing Organization Address City/[facility]/ZIP Co de Phone Number [facility] [place] [address] * Phosphorus (08/03/2024 4:41 AM EDT) Phosphorus 3.4 2.5 - 4.5 mg/dL 08/03/2024 5:22 AM EDT [facility] Blood VENOUS BLOOD SPECIMEN / Unknown IP Care Team Draw / Unknown 08/03/2024 4:41 AM EDT 08/03/2024 4:51 AM EDT Lisette Maldonado MD CHEMISTRY ORDERABL ES Performing Organization Address City/[facility]/ZIP Co de Phone Number [facility] [place] [address] * Magnesium (08/03/2024 4:41 AM EDT) Magnesium 0.81 0.69 - 1.07 mMol/L 08/03/2024 5:22 AM EDT [facility] Blood VENOUS BLOOD SPECIMEN / Unknown IP Care Team Draw / Unknown 08/03/2024 4:41 AM EDT 08/03/2024 4:51 AM EDT Lisette Maldonado MD CHEMISTRY ORDERABL ES Performing Organization Address City/[facility]/ZIP Co de Phone Number [facility] [place] [address] * (ABNORMAL) Basic Metabolic Panel (08/03/2024 4:41 AM EDT) Glucose 179 65 - 199 mg/dL 08/03/2024 6:51 AM [facility] Comment:Glucose Concentratio n >=200 mg/dL plus symptoms is consistent with Diabetes Mellitus. Blood Urea Nitrogen 10 10 - 20 mg/dL 08/03/2024 6:51 AM [facility] Creatinine 0.50(L) 0.80 - 1.50 mg/dL 08/03/2024 6:51 AM [facility] Sodium 135 135 - 145 mMol/L 08/03/2024 6:51 AM [facility] Potassium 3.9 3.5 - 5.0 mMol/L 08/03/2024 6:51 AM [facility] Chloride 100 98 - 107 mMol/L 08/03/2024 6:51 AM [facility] Carbon Dioxide 26 22 - 31 mMol/L 08/03/2024 6:51 AM [facility] Anion Gap 9 5 - 15 mMol/L 08/03/2024 6:51 AM [facility] Calcium 9.6 8.5 - 10.5 mg/dL 08/03/2024 6:51 AM [facility] Est Glomerular Filtration Rate - Male 124 mL/min/1. 73 m?? 08/03/2024 6:51 AM [facility] Comment: This [...] ORDERABL ES [facility] [place] [address] * (ABNORMAL) CBC (with Diff) (08/03/2024 4:41 [...] - 0.90 x10(3)/mc L 08/03/2024 4:57 AM [facility] Eos % 1.5 % 08/03/2024 4:57 AM [facility] Eos Absolute 0.16 0.00 - 0.40 x10(3)/mc L 08/03/2024 4:57 AM [facility] Basophil % 0.6 % 08/03/2024 4:57 AM [facility] Baso Absolute 0.06 0.00 - 0.10 x10(3)/mc L 08/03/2024 4:57 AM [facility] Immature Gran % 0.5 % 4:57 AM [facility] Immature Gran Absolute 0.05(H) 0.00 - 0.04 x10(3)/mc L 08/03/2024 4:57 AM EDT [facility] Blood VENOUS BLOOD SPECIMEN / Unknown IP Care Team Draw / Unknown 08/03/2024 4:41 AM EDT 08/03/2024 4:51 AM EDT Lisette Maldonado MD HEMATOLOGY ORDERAB LES Performing Organization Address City/[facility]/ZIP Co de Phone Number [facility] [place] [address] * (ABNORMAL) POC, GLUCOSE (08/03/2024 3:58 AM EDT) Glucometer, POC 200(H) 65 - 199 mg/dL 08/03/2024 3:58 AM EDT [facility] Comment:Supplemental ranges: <140 mg/dL before meals <180 mg/dL all other times of the day. Blood CAPILLARY BLOOD / Unknown 08/03/2024 3:58 AM EDT 08/03/2024 3:58 AM EDT Lisette Maldonado MD POINT OF CARE TEST ORDERABLES Performing Organization Address [facility] Co de Phone Number [facility] [place] [address] * POC, GLUCOSE (08/02/2024 11:06 PM EDT) Glucometer, POC 194 65 - 199 mg/dL 08/02/2024 11:07 PM EDT [facility] Comment:Supplemental ranges: <140 mg/dL before meals <180 mg/dL all other times of the day. Blood CAPILLARY BLOOD / Unknown 08/02/2024 11:06 PM EDT 08/02/2024 11:07 PM EDT Lisette Maldonado MD POINT OF CARE TEST ORDERABLES Performing Organization Address City/[facility]/ZIP Co de Phone Number [facility] [place] [address] * (ABNORMAL) POC, GLUCOSE (08/02/2024 7:46 PM [...] TEST ORDERABLES [facility] [place] [address] * (ABNORMAL) POC, GLUCOSE (08/02/2024 5:17 PM [...] TEST ORDERABLES [facility] [place] [address] * (ABNORMAL) POC, GLUCOSE (08/02/2024 12:44 PM EDT) Glucometer, POC 228(H) 65 - 199 mg/dL 08/02/2024 12:45 PM EDT [facility] Comment:Supplemental ranges: <140 mg/dL before meals <180 mg/dL all other times of the day. Blood CAPILLARY BLOOD / Unknown 08/02/2024 12:44 PM EDT 08/02/2024 12:45 PM EDT Lisette Maldonado MD POINT OF CARE TEST ORDERABLES Performing Organization Address City/[facility]/ZIP Co de Phone Number [facility] [place] [address] * POC, GLUCOSE (08/02/2024 7:43 AM EDT) Glucometer, POC 160 65 - 199 mg/dL 08/02/2024 7:43 AM EDT [facility] Comment:Supplemental ranges: <140 mg/dL before meals <180 mg/dL all other times of the day. Blood CAPILLARY BLOOD / Unknown 08/02/2024 7:43 AM EDT 08/02/2024 7:43 AM EDT Lisette Maldonado MD POINT OF CARE TEST ORDERABLES Performing Organization Address [facility] Co de Phone Number [facility] [place] [address] * Phosphorus (08/02/2024 3:49 AM EDT) Phosphorus 3.3 2.5 - 4.5 mg/dL 08/02/2024 4:53 AM EDT [facility] Blood VENOUS BLOOD SPECIMEN / Unknown IP Care Team Draw / Unknown 08/02/2024 3:49 AM EDT 08/02/2024 4:24 AM EDT Lisette Maldonado MD CHEMISTRY ORDERABL ES Performing Organization Address City/[facility]/ZIP Co de Phone Number [facility] [place] [address] * Magnesium (08/02/2024 3:49 AM EDT) Magnesium 0.72 0.69 - 1.07 mMol/L 08/02/2024 6:53 AM EDT [facility] Blood VENOUS BLOOD SPECIMEN / Unknown IP Care Team Draw / Unknown 08/02/2024 3:49 AM EDT 08/02/2024 4:24 AM EDT Lisette Maldonado MD CHEMISTRY ORDERABL ES [facility] [place] [address] * (ABNORMAL) Basic Metabolic Panel (08/02/2024 3:49 AM EDT) Glucose 136 65 - 199 mg/dL 08/02/2024 4:53 AM EDT [facility] Comment:Glucose Concentratio n >=200 mg/dL plus symptoms is consistent with Diabetes Mellitus. Blood Urea Nitrogen 11 10 - 20 mg/dL 08/02/2024 4:53 AM [facility] Creatinine 0.56(L) 0.80 - 1.50 mg/dL 08/02/2024 4:53 AM [facility] Sodium 138 135 - 145 mMol/L 08/02/2024 4:53 AM [facility] Potassium 3.7 3.5 - 5.0 mMol/L 08/02/2024 4:53 AM [facility] Chloride 102 98 - 107 mMol/L 08/02/2024 4:53 AM [facility] Carbon Dioxide 24 22 - 31 mMol/L 08/02/2024 4:53 AM [facility] Anion Gap 12 5 - 15 mMol/L 08/02/2024 4:53 AM [facility] Calcium 9.0 8.5 - 10.5 mg/dL 08/02/2024 4:53 AM [facility] Est Glomerular Filtration Rate - Male 120 mL/min/1. 73 m?? 08/02/2024 4:53 AM [facility] Comment: This [...] ORDERABL ES [facility] [place] [address] * (ABNORMAL) CBC (with Diff) (08/02/2024 3:49 AM EDT) White Blood Cell 11.20(H) 4.00 - 9.50 x10(3)/mc L 08/02/2024 4:30 AM EDT [facility] Red Blood Cell 4.14(L) 4.58 - 5.54 x10(6)/mc L 08/02/2024 4:30 AM [facility] Hemoglobin 12.0(L) 13.7 - [...] - 357 x10(3)/mc L 08/02/2024 4:30 [facility] Mean Platelet Volume 10.1 [...] - 3.20 x10(3)/mc L 08/02/2024 4:30 AM [facility] Monocyte % 5.7 % 08/02/2024 4:30 AM [facility] Monocyte Absolute 0.64 0.30 - 0.90 x10(3)/mc L 08/02/2024 4:30 AM [facility] Eos % 1.6 % 08/02/2024 4:30 AM [facility] Eos Absolute 0.18 0.00 - 0.40 x10(3)/mc L 08/02/2024 4:30 AM [facility] Basophil % 0.7 % 08/02/2024 4:30 AM [facility] Baso Absolute 0.08 0.00 - 0.10 x10(3)/mc L 08/02/2024 4:30 AM [facility] Immature Gran % 0.4 % 4:30 AM EDT [facility] Immature Gran Absolute 0.05(H) 0.00 - 0.04 x10(3)/mc L 08/02/2024 4:30 AM EDT [facility] Blood VENOUS BLOOD SPECIMEN / Unknown IP Care Team Draw / Unknown 08/02/2024 3:49 AM EDT 08/02/2024 4:24 AM EDT Lisette Maldonado MD HEMATOLOGY ORDERAB LES [facility] [place] [address] * POC, GLUCOSE (08/02/2024 3:08 AM EDT) Glucometer, POC 151 65 - 199 mg/dL 08/02/2024 3:08 AM EDT [facility] Comment:Supplemental ranges: <140 mg/dL before meals <180 mg/dL all other times of the day. Blood CAPILLARY BLOOD / Unknown 08/02/2024 3:08 AM EDT 08/02/2024 3:08 AM EDT Lisette Maldonado MD POINT OF CARE TEST ORDERABLES Performing Organization Address City/[facility]/ZIP Co de Phone Number [facility] [place] [address] * POC, GLUCOSE (08/02/2024 12:07 AM EDT) Glucometer, POC 121 65 - 199 mg/dL 08/02/2024 12:07 AM EDT [facility] Comment:Supplemental ranges: <140 mg/dL before meals <180 mg/dL all other times of the day. Blood CAPILLARY BLOOD / Unknown 08/02/2024 12:07 AM EDT 08/02/2024 12:08 AM EDT Lisette Maldonado MD POINT OF CARE TEST ORDERABLES [facility] [place] [address] * (ABNORMAL) POC, GLUCOSE (08/01/2024 7:52 PM EDT) Glucometer, POC 234(H) 65 - 199 mg/dL 08/01/2024 7:52 PM EDT [facility] Comment:Supplemental ranges: <140 mg/dL before meals <180 mg/dL all other times of the day. Blood CAPILLARY BLOOD / Unknown 08/01/2024 7:52 PM EDT 08/01/2024 7:52 PM EDT Lisette Maldonado MD POINT OF CARE TEST ORDERABLES Performing Organization Address City/[facility]/ZIP Co de Phone Number [facility] [place] [address] * POC, GLUCOSE (08/01/2024 4:28 PM EDT) Glucometer, POC 144 65 - 199 mg/dL 08/01/2024 4:30 PM EDT [facility] Comment:Supplemental ranges: <140 mg/dL before meals <180 mg/dL all other times of the day. Blood CAPILLARY BLOOD / Unknown 08/01/2024 4:28 PM EDT 08/01/2024 4:30 PM EDT Lisette Maldonado MD POINT OF CARE TEST ORDERABLES [facility] [place] [address] * (ABNORMAL) POC, GLUCOSE (08/01/2024 11:26 AM [...] TEST ORDERABLES [facility] [place] [address] * POC, GLUCOSE (08/01/2024 10:17 AM EDT) Glucometer, POC 82 65 - 199 mg/dL 08/01/2024 10:18 AM EDT [facility] Comment:Supplemental ranges: <140 mg/dL before meals <180 mg/dL all other times of the day. Blood CAPILLARY BLOOD / Unknown 08/01/2024 10:17 AM EDT 08/01/2024 10:18 AM EDT Lisette Maldonado MD POINT OF CARE TEST ORDERABLES [facility] [place] [address] * (ABNORMAL) Blood Gas, Arterial POC (08/01/2024 [...] - 97.0 % 08/01/2024 9:26 AM EDT [facility] Carboxyhemoglobin , Arterial 2.3 % [...] TEST ORDERABLES [facility] [place] [address] * (ABNORMAL) POC, GLUCOSE (08/01/2024 6:23 AM [...] TEST ORDERABLES [facility] [place] [address] * Scan Doc: Implantable Devices (08/01/2024 12:00 [...] Provider: Lauren Zavala RN)0828 (Given - Provider: Jearmy Escobar, RN)1246 (Given - Provider: Jeramy Escobar, [...] Routine documented in this encounter Care Teams Cable Television Line Technician Relationship Specialty Start Date End Date None None PCP - General 05/27/24 09/17/24 documented as of this encounter
--- OUTSIDE RECORDS SUMMARY | 2024-10-31 17:06 | XMS_ITS | Encounter Summary ---
Author Organization [facility] [place] [address] Care Team Providers Care Urban Redevelopment Specialist Name Role Phone None Primary Care Provider Unavailabl e Encounter Details Date Type Department Care Team (Late st Contact Info) Description 09/06/2024 Telephone [place] [phone] Fallon Lemus RN Social History Tobacco Use Types Packs/Day Years Used Date Smoking Tobacco: Every Day Cigarettes 1 25 Started: 12/28/1986; Last attempted to quit: 12/28/2011 Smokeless Tobacco: Never Alcohol Use Standard Drinks/Week Comments No 0 (1 standard drink = 0.6 oz pur e alcohol) [facility] Utilities Answer Date Recorded In the past 12 months has [facility] [employer], gas, oil, or water [employer] threatened to shut off services in your [...] EDT Incoming call from Luis Enrique with [facility] reporting that 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 Luis Enrique reported there is a dry, yellowish brown scab over the area. No redness or drainage. Lux 5th toe nail has fungus growing under it. Luis Enrique reported he has advised Lux to see a federal district clerk for care for the fifth toe nail. [...] any new orders would be faxed to [facility] at [phone]. Luis Enrique verbalized understanding. DAVID [employer] distribution executive [facility] documented in this encounter Plan of Treatment Upcoming Encounters Date Type Department Care Team (Late st Contact Info) Description 11/09/2024 1:30 PM EST Office [place] [phone] Isabela Hayward, INTERNAL SECURITY MANAGER [facility] INFECTIOUS DISEASE [place] [id number] 11/10/2024 10:00 AM EST Office [place] [address] Dai Whitman, INTERNAL SECURITY MANAGER 11/21/2024 2:15 PM EST Office [place] [phone] Dayanara Grover MD [facility] DR ENDOCRINOLOGY DEPT [place], [place] [id number] documented as of this encounter Visit Diagnoses Not on filedocumented in this encounter Care Teams Urban Redevelopment Specialist Relationship Specialty Start Date End Date None None PCP - General 05/27/24 09/17/24 documented as of this encounter
--- OUTSIDE RECORDS SUMMARY | 2024-10-31 17:06 | XMS_ITS | Encounter Summary ---
Author Organization [facility] [place] [address] Care Team Providers Care Help Desk Analyst Name Role Phone None Primary Care Provider Unavailabl e Reason for Referral * Diagnostic Test (Routine) - New Request Specialty Diagnoses / Procedures Referred By William moses Referred To Contact Diagnoses Critical limb ischemia of left lower extremity Procedures Unilat Bypass Graft Assess Dago White APRN [facility] [place] [address] [facility] [address] [place] [address] Referral ID Status Reason Start Date Expiration Date Visits Requested Visits Authorized [id number] New Request Specialty Service Requested 4 08/28/2025 1 1 Encounter Details Date Type Department Care Team (Late st Contact Info) Description 08/28/2024 Orders [place] [address] Dago White APRN [facility] [place] [address] Critical limb ischemia of left [...] PM EST Office [place] [address] Isabela Hayward, RESHMA [facility] [place] [address] 11/10/2024 10:00 AM EST Office [place] [address] Dai Whitman APRN 11/21/2024 2:15 PM EST Office [place] [address] Dayanara Grover MD [facility] [place] [address] documented as of this encounter Results * Unilat Bypass Graft Assess (08/28/2024 12:55 PM EDT) VB Text Report Department: Vascular Surgery Lab Patient: [id number] (GEOVANNA ARAYA) CPT: 66403 Referring Physician: DAGO SNIDER ?? Phone: Indications: [...] extremity documented in this encounter Care Teams Help Desk Analyst Relationship Specialty Start Date End Date None None PCP - General 05/27/24 09/17/24 documented as of this encounter
--- OUTSIDE RECORDS SUMMARY | 2024-10-31 17:06 | XMS_ITS | Encounter Summary ---
[place] [address] Care Team Providers Care Humidifier Operator Name Role Phone None Primary Care Provider Unavailabl e Reason for Referral * Consultation (Urgent) - Duplicate Referral Specialty Diagnoses / Procedures Referred By Contac t Referred To Contact Cardiology Diagnoses Heart failure with mildly reduced ejection fraction (HFmrEF) Cardiomyopathy, unspecified type Hx of CABG S/P D/C - HFmrEF, Cardiomyopathy, Hx of CABG Viviana Resendiz APRN [facility] [place] [address] [facility] [address] [place] [phone] Referral ID Status Reason Start Date Expiration Date Visits Requested Visits Authorized [id number] Duplicate Referral Consult, Test & Treat 4 08/29/2025 1 1 Encounter Details Date Type Department Care Team (Late st Contact Info) Description 08/29/2024 Orders [place] [address] Viviana Resendiz APRN [facility] [place] [address] Heart failure with mildly reduced [...] PM EST Office [place] [address] Isabela Hayward, RESHMA [facility] [place] [address] 11/10/2024 10:00 AM EST Office [place] [address] Dai Whitman APRN 11/21/2024 2:15 PM EST Office [place] [address] Dayanara Grover MD [facility] [place] [address] Scheduled Referrals Name Type Priority Associated Diagnoses [...] status documented in this encounter Care Teams Humidifier Operator Relationship Specialty Start Date End Date None None PCP - General 05/27/24 09/17/24 documented as of this encounter
--- OUTSIDE RECORDS SUMMARY | 2024-10-31 17:06 | XMS_ITS | Encounter Summary ---
Author Organization [facility]ly [facility] [place] [address] Care Team Providers Care Clinical Exercise Physiologist Name Role Phone None Primary Care Provider Unavailabl e Reason for Visit * Auth/Cert (Routine) Specialty Diagnoses / Procedures Referred By William t Referred To Contact Diagnoses CLTI Procedures PRO BYPASS GRAFT OTHR, FEM-TIBIAL @BYPASS GRAFT, FEM-ANT TIBIAL, -POST TIBIAL, -PERONEAL, -DP W\ SYNTHETIC CONDUIT (WRVU 23.66) Lisette Maldonado MD [facility] [place] [address] [facility] Referral ID Status Reason Start Date Expiration Date Visits Re quested Visits Authorized [id number] 1 1 Encounter Details Date Type Department Care Team (Late st Contact Info) Description 08/01/2024 7:30 AM EDT - 08/01/2024 1:43 PM EDT [place] [address] Lisette Maldonado MD [facility] [place] [address] @BYPASS GRAFT, FEM-ANT TIBIAL, -POST TIBIAL, -PERONEAL, [...] 0.6 oz pur e alcohol) [facility] Utilities Answer Date Recorded In [...] time in the past 12 m [facility], were you homeless or living in a halfway (including now)? No 08/02/2024 IPV Inpatient Questions [...] and left foot pain who presents to [facility] for left lower extremity bypass Previously from [...] patient has been previously admitted to the [facility] Vascular Surgery service on 05/28 - 06/02 [...] Process Instructions: There is no in-house vascular landscape laborer available on weeknights (5pm-8am), weekends, or holidays. IF THIS IS A REQUEST FOR AN EMERGENT STUDY DURING THOSE HOURS, please have the senior provider responsible for the patient page the Vascular Surgery Fellow/Senior Resident traffic monitor specialist to discuss options. Scheduling Instructions: Questions: Graft description/location: s/p BL femoral endarterectomies with illiac stent grafts Indication for study/signs & symptoms: improved patency/flow Question to be answered: improved patency/flow Preferred location?: [facility] Clinics Referral to Home Health [[id number] Custom] As directed Process Instructions: If no progress note charted, please enter Clinical details in comments. Scheduling Instructions: Comments: Please evaluate Lux Dixon Jr. for admission to Home Health. [address] [place] [phone] (home) Date of : 1975 Inpatient DOCUMENTATION FOR VNA SERVICES (INCLUDING THOSE PATIENTS WITH MEDICARE COVERAGE REQUIRING HOME VNA SERVICES AND/OR HOSPICE SERVICES) PATIENT'S LOCATION: Lux Dixon Jr. [address] [facility] [address] (home) Cell: Telephone Information: Protective Services Officer's Name: self In discussion with the attending physician, it is certified that this patient is under their care and that they, or a Nurse Practitioner, Clinical Nurse specialist or Physician Director Of Content And Programming who is working directly with them, had [...] SACHIN bandage daily) HOME HEALTH CARE AGENCY: [facility] [address] [place] [id number] START OF CARE: within 24-48 hours of [...] For any problems or questions please call [phone] For issues on weeknights after 5pm and weekends please call [phone] and ask for the Vascular Fellow traffic monitor specialist. documented in this encounter Discharge Instructions [...] For any problems or questions please call [phone] For issues on weeknights after 5pm and weekends please call [phone] and ask for the Vascular Fellow traffic monitor specialist. documented in this encounter Medications at [...] and left foot pain who presents to [facility] for left iliofemoral endarterectomy and left femoral [...] 3.51) performed by Thony Garcia MD at [facility] MAIN OR PRO BYPASS GRAFT OTHR, FEM-TIBIAL Left 08/01/2024 @BYPASS GRAFT, FEM-ANT TIBIAL, -POST TIBIAL, -PERONEAL, -DP W\ SYNTHETIC CONDUIT (WRVU 23.66) performed by Lisette Maldonado MD at [facility] MAIN OR PRO CABG, ARTERY-VEIN, SINGLE 01/04/2012 @CABG, VENOUS & ARTERIAL GRAFT;SINGLE VEIN GRAFT performed by INNA TOVAR at [facility] MAIN OR PRO ENDOSCOPY W/VIDEO-ASST VEIN HARVEST, CABG 01/04/2012 ENDOSCOPIC HARVEST VEIN(S) FOR CABG performed by INNA TOVAR at [facility] MAIN OR VS ARTERIOGRAM LOWER EXTREMITY VASCULAR SURGERY 07/20/2024 VS Arteriogram Lower Extremity Vascular Surgery 07/20/2024 Taylor Ruiz MD [facility] INTERVENTIONL RAD Active Non-Hospital Problems Diagnosis [...] at end of physical therapy evaluation, call sauceod within reach, and all needs met. Assessment: [...] ray PT, Doctor of Physical Therapy Pager: [phone] Physical Therapy Inpatient Rehabilitation Department * María Carranza, CERTIFIED TOWER CLIMBER - 08/03/2024 11:30 AM EDT Vascular Surgery Progress Note Lux Dixon Jr. is a 49 y.o. male with a history of CAD s/p CABG, DM, obesity, NSTEMI, HTN, HLD, depression, tobacco use, substance use and left foot pain who presents to [facility] for left iliofemoral endarterectomy and left femoral [...] (porcine) 5,000 Units Subcutaneous Q8H [facility] Operations This Hospitalization 08/01: Left iliofemoral endarterectomy Left femoral to below-knee popliteal artery bypass with 7mm ringed PTFE Interim - HDS, NAEO, pain well controlled, 100% trays, BM TECHNICAL ACCOUNT EXECUTIVE - WBC 10.7 (11.2), Hgb 12.5 (12), [...] pending PT/OT cory Carranza APRN 08/03/2024 Pager: [phone] * Alicja Montague MD - 08/02/2024 1:29 PM EDT Vascular Surgery Progress Note Patient ID Lux Dixon Jr. is a 49 y.o. male with a history of CAD s/p CABG, DM, obesity, NSTEMI, HTN, HLD, depression, tobacco use, substance use and left foot pain who presents to [facility] for left iliofemoral endarterectomy and left femoral [...] and left foot pain who presents to [facility] for left lower extremity bypass S: Lux [...] 3.51) performed by Thony Garcia MD at [facility] MAIN OR PRO CABG, ARTERY-VEIN, SINGLE 01/04/2012 @CABG, VENOUS & ARTERIAL GRAFT;SINGLE VEIN GRAFT performed by INNA TOVAR at [facility] MAIN OR PRO ENDOSCOPY W/VIDEO-ASST VEIN HARVEST, CABG 01/04/2012 ENDOSCOPIC HARVEST VEIN(S) FOR CABG performed by INNA TOVAR at [facility] MAIN OR Social History Socioeconomic History [...] 149 Dorsalis Pedis (Ankle) Artery 83 0.55 [place]-Biphasic Posterior Tibial (Ankle) Artery 87 0.57 Monophasic [...] and left foot pain who presents to [facility] for left lower extremity bypass. Will proceed with planned operation. -Consent signed, questions answered -Preop checklist complete Dennis Guzman MD Vascular Fellow PGY7, pager [phone] Associated attestation - Lisette Maldonado MD - [...] - 08/03/2024 2:40 PM EDT Home with [facility] CARE MANAGEMENT FINAL DISCHARGE NOTE Chart reviewed, care reviewed with primary team and at interdisciplinary rounds. Patient is medically ready for [facility]. Needs for Transition of Care: Plan for discharge is: Agency Referrals & Follow-up Care: Contact information for follow-up [place] [address] Transportation: family or friend will provide Functional status prior to admission: Independent Home Environment: Others in the home: sibling(s), other relative(s). Current Living Arrangements: home/apartment/condo. Accessibility Concerns:2 level home includng basement. Current Functional Ability: Assistive Equipment DME used at home: crutches Patient is insured through: Primary Insurance: [employer] MANAGED MEDICARE Payor: [employer] MANAGED MEDICARE / Plan: [employer] MANAGED MEDICARE PPO / Product Type: *No [...] where referrals are placed. Provided patient with [facility] Star Quality Rating for Home care hand out. Patient requests referral to : [facility] [address] [place] [address] Expected date of discharge: 08/03. Referral routed to the Metal Weather Stripper for matching with agency/vendor and to provide [...] Room near nurses station purposeful rounding call sacuedo in reach Patient-specific fall prevention interventions for [...] television smartphone Taken 08/01/20242126 Pain Management Interventions: [id number] dosing utilized care clustered pain management plan [...] consult to Social Work Ordered at: 08/01/24 7177 Reason for Consult: Substance / alcohol abuse Reason for Consult? Patient has scored positive for Audit or DAST assessments Reason for Consult Substance / alcohol abuse Additional information Admitted to cocaine use Social Work Response: MOBILE ENGINEER reviewed chart. DAST score of 3. CERTIFIED TOWER CLIMBER to see for DAST. However, MOBILE ENGINEER gave pt Consumer???s Guide for Substance Use Treatment in the [facility]. Pt refuses tx but accepted booklet to read. Follow Up Needed: Nothing further regarding this consult as CERTIFIED TOWER CLIMBER will see pt due to DAST score. DENISSE [employer] * Care Management - Roxane Zhu MSW [...] through: Primary Insurance: [employer] MANAGED MEDICARE Payor: [employer] MANAGED MEDICARE / Plan: [employer] MANAGED MEDICARE [...] nurse, medical record, and Patient, Chart Review MOBILE ENGINEER Introduced self/reviewed role; services accepted. Admitted From: Home Reason for Hospitalization: Leg pain Past medical History: Past Medical History: Diagnosis Date Depression Hyperlipidemia Hypertension Narcolepsy Obesity Hospitalizations Within the Past 30 Days: planned readmission Current Decision-Making Capacity: Self If AD's have not been completed the following surrogate would be surrogate decision maker per [place] surrogate decision making law. (Only good for 180 days) Any patient receiving care in [place] must abide by [place] law. The hierarchy for surrogate decision making [...] (i) The agent with financial power of privacy attorney or a conservator appointed in accordance [...] Current DME: [facility] Home Address confirmed as: [address] [place] [address] Social & Family Supports: All names listed [...] Guide for Substance Use Treatment in the [facility]. Refuses sub tx but took the booklet to read over Health/Prescription Coverage: Primary Insurance: [employer] MEDICARE Payor: [employer] MANAGED MEDICARE / Plan: [facility] MANAGED MEDICARE PPO / Product Type: *No Product type* / Secondary Insurance: N/A ; Prescription Coverage: Yes Preferred Pharmacy: [facility] [place], [place] [id number] - [place], [place] - [address] [facility] [address] [facility] [address] [facility] - [place], [place] - [address] [facility] [address] [facility] [address] [place] Status: Patient is a : No Primary [...] and left foot pain who presents to [facility] for left lowerextremity bypass. Previous admission at [facility] (07/14-07/21). 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 Incision made at the PIP joint space, amputation performed at the transmetatarsal space. Per H&P note 07/14, patient had also been previously admitted to the [facility] Vascular Surgery service on 05/28 - 06/02 [...] of this encounter: 101.6 kg (224 lb). [place] Body Weight (IBW) (kg): 75.45 Wt Readings [...] at bedside. 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 Pt did not provide [...] during previous admission and enjoyed these - process description writer offered to send Glucerna as a lower carbohydrate option pt was agreeable to this(process description writer sent one today for pt to [...] an evening meal which is usually takeout (barytes grinder or pizza). Drinks up to 18 cans of Mountain Dew/day or 1.5 gallons of milk daily. No data found. Nutrition Focused Physical Exam: Performed . Subcutaneous Fat Loss Orbital region: None present Upper arm region (triceps/biceps): Mild Thoracic and Lumbar regions (ribs, lower back, and maxillary line): None present Lean Muscle Loss [place] region (temporalis muscle): Mild Clavicle bone region [...] Diversional Activities: television smartphone Pain Management Interventions: cqphtv-qvq-cwnzl dosing utilized care clustered pain management plan [...] and ADLs]: scott Surveillance [continuous indirect monitoring]: [facility] Patient-specific fall prevention interventions for sensory deficits [...] Maldonado MD - 08/01/2024 8:30 AM EDT [facility] Operative Note Patient Name: Lux Dixon Jr. : [id number] MR#: [id number] Case Date: 08/01/2024 Surgeon: Surgeons and Role: [...] foot pain with ulcers who presents to [facility] for left lower extremity bypass. Procedure Description: [...] proximally and the SFA distally. Theexternal iliac, DRY CHAIN OPERATOR and proximal SFA were endarterectomized in [...] PM EST Office Visit [place] [address] Isabela Hayward, CERTIFIED TOWER CLIMBER [facility] [place] [address] 11/10/2024 10:00 AM EST Office Visit [place] [phone] Dai Whitman APRN 11/21/2024 2:15 PM EST Office Visit [place] [phone] Dayanara [place] MD [facility] [place] [address] Scheduled Referrals Name Type Priority Associated Diagnoses [...] 8:04 AM EDT Bypass Graft Othr, Fem-Tibial ([id number]) 08/01/2024 7:34 AM EDT CLTI POC, GLUCOSE Routine 08/01/2024 6:23 AM EDT BYPASS GRAFT, FEM-ANT TIBIAL, -POST TIBIAL, -PERONEAL, -DP W\ SYNTHETIC CONDUIT Routine 08/01/2024 6:03 AM EDT IMPLANTABLE DEVICES SCAN 08/01/2024 12:00 AM EDT documented in this encounter Results * POC, GLUCOSE (08/03/2024 12:27 PM EDT) Glucometer, POC 81 65 - 199 mg/dL 08/03/2024 12:27 PM EDT [facility] Comment:Supplemental ranges: <140 mg/dL before meals <180 mg/dL all other times of the day. Blood CAPILLARY BLOOD / Unknown 08/03/2024 12:27 PM EDT 08/03/2024 12:27 PM EDT Lisette Maldonado MD POINT OF CARE TEST ORDERABLES [facility] [place] [address] * POC, GLUCOSE (08/03/2024 8:06 AM EDT) Glucometer, POC 137 65 - 199 mg/dL 08/03/2024 8:06 AM EDT [facility] Comment:Supplemental ranges: <140 mg/dL before meals <180 mg/dL all other times of the day. Blood CAPILLARY BLOOD / Unknown 08/03/2024 8:06 AM EDT 08/03/2024 8:06 AM EDT Lisette Maldonado MD POINT OF CARE TEST ORDERABLES [facility] [place] [address] * Phosphorus (08/03/2024 4:41 AM EDT) [facility] Phosphorus 3.4 2.5 - 4.5 mg/dL 08/03/2024 5:22 AM EDT [facility] Blood VENOUS BLOOD SPECIMEN / Unknown IP Care Team Draw / Unknown 08/03/2024 4:41 AM EDT 08/03/2024 4:51 AM EDT Lisette Maldonado MD CHEMISTRY ORDERABL ES Performing Organization Address City/[facility]/ZIP Co de Phone Number [facility] [place] [address] * Magnesium (08/03/2024 4:41 AM EDT) [facility] Magnesium 0.81 0.69 - 1.07 mMol/L 08/03/2024 5:22 AM EDT [facility] Blood VENOUS BLOOD SPECIMEN / Unknown IP Care Team Draw / Unknown 08/03/2024 4:41 AM EDT 08/03/2024 4:51 AM EDT Lisette Maldonado MD CHEMISTRY ORDERABL ES Performing Organization Address City/[facility]/ZIP Co de Phone Number [facility] [place] [address] * (ABNORMAL) Basic Metabolic Panel (08/03/2024 4:41 AM EDT) [facility] Glucose 179 65 - 199 mg/dL 08/03/2024 6:51 AM EDT [facility] Comment:Glucose Concentratio n >=200 mg/dL plus symptoms is consistent with Diabetes Mellitus. Blood Urea Nitrogen 10 10 - 20 mg/dL 08/03/2024 6:51 AM EDT [facility] Creatinine 0.50(L) 0.80 - 1.50 mg/dL 08/03/2024 6:51 AM EDT [facility] Sodium 135 135 - 145 mMol/L 08/03/2024 6:51 AM EDT [facility] Potassium 3.9 3.5 - 5.0 mMol/L 08/03/2024 6:51 AM EDT [facility] Chloride 100 98 - 107 mMol/L 08/03/2024 6:51 AM EDT [facility] Carbon Dioxide 26 22 - 31 mMol/L 08/03/2024 6:51 AM EDT [facility] Anion Gap 9 5 - 15 mMol/L 08/03/2024 6:51 AM EDT [facility] Calcium 9.6 8.5 - 10.5 mg/dL 08/03/2024 6:51 AM EDT [facility] Est Glomerular Filtration Rate - Male 124 mL/min/1. 73 m?? 08/03/2024 6:51 AM EDT [facility] Comment: [...] EDT Lisette Maldonado MD CHEMISTRY ORDERABL ES [facility] [place] [address] * (ABNORMAL) CBC (with Diff) (08/03/2024 4:41 AM EDT) White Blood Cell 10.74(H) 4.00 - 9.50 x10(3)/mc L 08/03/2024 4:57 AM EDT [facility] Red Blood Cell 4.23(L) 4.58 - 5.54 x10(6)/mc L 08/03/2024 4:57 AM [facility] Hemoglobin 12.5(L) 13.7 - 16.5 g/dL 08/03/2024 4:57 AM [facility] Hematocrit 38.5(L) 40.5 - 48.5 % 08/03/2024 4:57 AM [facility] Mean Cell Volume 91.0 82.9 - 93.1 fL 08/03/2024 4:57 AM [facility] Mean Cell Hemoglobin 29.6 27.5 - 32.1 pg 08/03/2024 4:57 AM [facility] Mean Cell Hemoglobin Concentration 32.5 32.0 - 35.7 g/dL 08/03/2024 4:57 AM [facility] Platelet 309 145 - 357 x10(3)/mc L 08/03/2024 4:57 AM [facility] Mean Platelet Volume 9.7 7.6 - 12.9 fL 08/03/2024 4:57 AM [facility] RDW Standard Deviation 44.0 36.0 - 45.0 fL 08/03/2024 4:57 AM [facility] RDW coefficient of variation 13.3 11.4 - 13.8 % 08/03/2024 4:57 AM [facility] NRBC% auto 0.0 % 08/03/2024 4:57 AM [facility] NRBC Absolute <0.01 <0.01 x10(3)/mc L 08/03/2024 4:57 AM [facility] Neutrophil % 71.7 % 08/03/2024 4:57 AM [facility] Neutrophil Absolute (ANC) - Automated 7.71(H) 1.70 - 6.10 x10(3)/mc L 08/03/2024 4:57 AM [facility] Lymph % 18.5 % 08/03/2024 4:57 AM EDT [facility] Lymph Absolute 1.99 0.90 - 3.20 x10(3)/mc L 08/03/2024 4:57 AM EDT [facility] Monocyte % 7.2 % 08/03/2024 4:57 AM EDT [facility] Monocyte Absolute 0.77 0.30 - 0.90 x10(3)/mc L 08/03/2024 4:57 AM EDT [facility] Eos % 1.5 % 08/03/2024 4:57 AM EDT [facility] Eos Absolute 0.16 0.00 - 0.40 x10(3)/mc L 08/03/2024 4:57 AM EDT [facility] Basophil % 0.6 % 08/03/2024 4:57 AM EDT [facility] Baso Absolute 0.06 0.00 - 0.10 x10(3)/mc L 08/03/2024 4:57 AM EDT [facility] Immature Gran % 0.5 % 4:57 AM EDT [facility] Immature Gran Absolute 0.05(H) 0.00 - 0.04 x10(3)/mc L 08/03/2024 4:57 AM EDT [facility] Blood VENOUS BLOOD SPECIMEN / Unknown IP Care Team Draw / Unknown 08/03/2024 4:41 AM EDT 08/03/2024 4:51 AM EDT Lisette Maldonado MD HEMATOLOGY ORDERAB LES [facility] [place] [address] * (ABNORMAL) POC, GLUCOSE (08/03/2024 3:58 AM EDT) [facility] Signature Glucometer, POC 200(H) 65 - 199 mg/dL 08/03/2024 3:58 AM EDT [facility] Comment:Supplemental ranges: <140 mg/dL before meals <180 mg/dL all other times of the day. Blood CAPILLARY BLOOD / Unknown 08/03/2024 3:58 AM EDT 08/03/2024 3:58 AM EDT Lisette Maldonado MD POINT OF CARE TEST ORDERABLES [facility] [place] [address] * POC, GLUCOSE (08/02/2024 11:06 PM EDT) Glucometer, POC 194 65 - 199 mg/dL 08/02/2024 11:07 PM EDT [facility] Comment:Supplemental ranges: <140 mg/dL before meals <180 mg/dL all other times of the day. Blood CAPILLARY BLOOD / Unknown 08/02/2024 11:06 PM EDT 08/02/2024 11:07 PM EDT Lisette Maldonado MD POINT OF CARE TEST ORDERABLES Performing Organization Address City/[facility]/ZIP Co de Phone Number [facility] [place] [address] * (ABNORMAL) POC, GLUCOSE (08/02/2024 7:46 PM EDT) Glucometer, POC 226(H) 65 - 199 mg/dL 08/02/2024 7:46 PM EDT [facility] Comment:Supplemental ranges: <140 mg/dL before meals <180 mg/dL all other times of the day. Blood CAPILLARY BLOOD / Unknown 08/02/2024 7:46 PM EDT 08/02/2024 7:46 PM EDT Lisette Maldonado MD POINT OF CARE TEST ORDERABLES Performing Organization Address City/[facility]/ZIP Co de Phone Number [facility] [place] [address] * (ABNORMAL) POC, GLUCOSE (08/02/2024 5:17 PM EDT) Glucometer, POC 236(H) 65 - 199 mg/dL 08/02/2024 5:17 PM EDT [facility] Comment:Supplemental ranges: <140 mg/dL before meals <180 mg/dL all other times of the day. Blood CAPILLARY BLOOD / Unknown 08/02/2024 5:17 PM EDT 08/02/2024 5:17 PM EDT Lisette Maldonado MD POINT OF CARE TEST ORDERABLES Performing Organization Address City/[facility] Co de Phone Number [facility] [place] [address] * (ABNORMAL) POC, GLUCOSE (08/02/2024 12:44 PM EDT) Glucometer, POC 228(H) 65 - 199 mg/dL 08/02/2024 12:45 PM EDT [facility] Comment:Supplemental ranges: <140 mg/dL before meals <180 mg/dL all other times of the day. Blood CAPILLARY BLOOD / Unknown 08/02/2024 12:44 PM EDT 08/02/2024 12:45 PM EDT Lisette Maldonado MD POINT OF CARE TEST ORDERABLES Performing Organization Address City/[facility]/ZIP Co de Phone Number [facility] [place] [address] * POC, GLUCOSE (08/02/2024 7:43 AM EDT) Glucometer, POC 160 65 - 199 mg/dL 08/02/2024 7:43 AM EDT [facility] Comment:Supplemental ranges: <140 mg/dL before meals <180 mg/dL all other times of the day. Blood CAPILLARY BLOOD / Unknown 08/02/2024 7:43 AM EDT 08/02/2024 7:43 AM EDT Lisette Maldonado MD POINT OF CARE TEST ORDERABLES [facility] [place] [address] * Phosphorus (08/02/2024 3:49 AM EDT) [facility] Phosphorus 3.3 2.5 - 4.5 mg/dL 08/02/2024 4:53 AM EDT [facility] Blood VENOUS BLOOD SPECIMEN / Unknown IP Care Team Draw / Unknown 08/02/2024 3:49 AM EDT 08/02/2024 4:24 AM EDT Lisette Maldonado MD CHEMISTRY ORDERABL ES Performing Organization Address [facility]/ZIP Co de Phone Number [facility] [place] [address] * Magnesium (08/02/2024 3:49 AM EDT) [facility] Magnesium 0.72 0.69 - 1.07 mMol/L 08/02/2024 6:53 AM EDT [facility] Blood VENOUS BLOOD SPECIMEN / Unknown IP Care Team Draw / Unknown 08/02/2024 3:49 AM EDT 08/02/2024 4:24 AM EDT Lisette Maldonado MD CHEMISTRY ORDERABL ES Performing Organization Address City/[facility]/ZIP Co de Phone Number [facility] [place] [address] * (ABNORMAL) Basic Metabolic Panel (08/02/2024 3:49 AM EDT) [facility] Glucose 136 65 - 199 mg/dL 08/02/2024 4:53 AM EDT [facility] Comment:Glucose Concentratio n >=200 mg/dL plus symptoms is consistent with Diabetes Mellitus. Blood Urea Nitrogen 11 10 - 20 mg/dL 08/02/2024 4:53 AM EDT [facility] Creatinine 0.56(L) 0.80 - 1.50 mg/dL 08/02/2024 4:53 AM [facility] Sodium 138 135 - 145 mMol/L 08/02/2024 4:53 AM [facility] Potassium 3.7 3.5 - 5.0 mMol/L 08/02/2024 4:53 AM [facility] Chloride 102 98 - 107 mMol/L 08/02/2024 4:53 AM [facility] Carbon Dioxide 24 22 - 31 mMol/L 08/02/2024 4:53 AM [facility] Anion Gap 12 5 - 15 mMol/L 08/02/2024 4:53 AM [facility] Calcium 9.0 8.5 - 10.5 mg/dL 08/02/2024 4:53 AM [facility] Est Glomerular Filtration Rate - Male 120 mL/min/1. 73 m?? 08/02/2024 4:53 AM [facility] Comment: [...] EDT Lisette Maldonado MD CHEMISTRY ORDERABL ES [facility] [place] [address] * (ABNORMAL) CBC (with Diff) (08/02/2024 3:49 AM EDT) White Blood Cell 11.20(H) 4.00 - 9.50 x10(3)/mc L 08/02/2024 4:30 AM [facility] Red Blood Cell 4.14(L) 4.58 - 5.54 x10(6)/mc L 08/02/2024 4:30 AM [facility] Hemoglobin 12.0(L) 13.7 - 16.5 g/dL 08/02/2024 4:30 AM [facility] Hematocrit 37.7(L) 40.5 - 48.5 % 08/02/2024 4:30 AM [facility] Mean Cell Volume 91.1 82.9 - 93.1 fL 08/02/2024 4:30 AM [facility] Mean Cell Hemoglobin 29.0 27.5 - 32.1 pg 08/02/2024 4:30 AM [facility] Mean Cell Hemoglobin Concentration 31.8(L) 32.0 - 35.7 g/dL 08/02/2024 4:30 AM [facility] Platelet 330 145 - 357 x10(3)/mc L 08/02/2024 4:30 AM [facility] Mean Platelet Volume 10.1 7.6 - 12.9 fL 08/02/2024 4:30 AM [facility] RDW Standard Deviation 44.7 36.0 - 45.0 fL 08/02/2024 4:30 AM [facility] RDW coefficient of variation 13.4 11.4 - 13.8 % 08/02/2024 4:30 AM [facility] NRBC% auto 0.0 % 08/02/2024 4:30 AM [facility] NRBC Absolute <0.01 <0.01 x10(3)/mc L 08/02/2024 4:30 AM [facility] Neutrophil % 71.9 % 08/02/2024 4:30 AM [facility] Neutrophil Absolute (ANC) - Automated 8.04(H) 1.70 - 6.10 x10(3)/mc L 08/02/2024 4:30 AM EDT [facility] Lymph % 19.7 % 08/02/2024 4:30 AM EDT [facility] Lymph Absolute 2.21 0.90 - 3.20 x10(3)/mc L 08/02/2024 4:30 AM EDT [facility] Monocyte % 5.7 % 08/02/2024 4:30 AM EDT [facility] Monocyte Absolute 0.64 0.30 - 0.90 x10(3)/mc L 08/02/2024 4:30 AM EDT [facility] Eos % 1.6 % 08/02/2024 4:30 AM EDT [facility] Eos Absolute 0.18 0.00 - 0.40 x10(3)/mc L 08/02/2024 4:30 AM EDT [facility] Basophil % 0.7 % 08/02/2024 4:30 AM EDT [facility] Baso Absolute 0.08 0.00 - 0.10 x10(3)/mc L 08/02/2024 4:30 AM EDT [facility] Immature Gran % 0.4 % 4:30 AM EDT [facility] Immature Gran Absolute 0.05(H) 0.00 - 0.04 x10(3)/mc L 08/02/2024 4:30 AM EDT [facility] Blood VENOUS BLOOD SPECIMEN / Unknown IP Care Team Draw / Unknown 08/02/2024 3:49 AM EDT 08/02/2024 4:24 AM EDT Lisette Maldonado MD HEMATOLOGY ORDERAB LES [facility] [place] [address] * POC, GLUCOSE (08/02/2024 3:08 AM EDT) Glucometer, POC 151 65 - 199 mg/dL 08/02/2024 3:08 AM EDT [facility] Comment:Supplemental ranges: <140 mg/dL before meals <180 mg/dL all other times of the day. Blood CAPILLARY BLOOD / Unknown 08/02/2024 3:08 AM EDT 08/02/2024 3:08 AM EDT Lisette Maldonado MD POINT OF CARE TEST ORDERABLES Performing Organization Address City/[facility]/ZIP Co de Phone Number [facility] [place] [address] * POC, GLUCOSE (08/02/2024 12:07 AM EDT) Glucometer, POC 121 65 - 199 mg/dL 08/02/2024 12:07 AM EDT [facility] Comment:Supplemental ranges: <140 mg/dL before meals <180 mg/dL all other times of the day. Blood CAPILLARY BLOOD / Unknown 08/02/2024 12:07 AM EDT 08/02/2024 12:08 AM EDT Lisette Maldonado MD POINT OF CARE TEST ORDERABLES Performing Organization Address City/[facility] Co de Phone Number [facility] [place] [address] * (ABNORMAL) POC, GLUCOSE (08/01/2024 7:52 PM EDT) Glucometer, POC 234(H) 65 - 199 mg/dL 08/01/2024 7:52 PM EDT [facility] Comment:Supplemental ranges: <140 mg/dL before meals <180 mg/dL all other times of the day. Blood CAPILLARY BLOOD / Unknown 08/01/2024 7:52 PM EDT 08/01/2024 7:52 PM EDT Lisette Maldonado MD POINT OF CARE TEST ORDERABLES [facility] [place] [address] * POC, GLUCOSE (08/01/2024 4:28 PM EDT) Glucometer, POC 144 65 - 199 mg/dL 08/01/2024 4:30 PM EDT [facility] Comment:Supplemental ranges: <140 mg/dL before meals <180 mg/dL all other times of the day. Blood CAPILLARY BLOOD / Unknown 08/01/2024 4:28 PM EDT 08/01/2024 4:30 PM EDT Lisette Maldonado MD POINT OF CARE TEST ORDERABLES Performing Organization Address City/[facility] Co de Phone Number [facility] [place] [address] * (ABNORMAL) POC, GLUCOSE (08/01/2024 11:26 AM EDT) Glucometer, POC 208(H) 65 - 199 mg/dL 08/01/2024 11:26 AM EDT [facility] Comment:Supplemental ranges: <140 mg/dL before meals <180 mg/dL all other times of the day. Blood CAPILLARY BLOOD / Unknown 08/01/2024 11:26 AM EDT 08/01/2024 11:26 AM EDT Lisette Maldonado MD POINT OF CARE TEST ORDERABLES [facility] [place] [address] * POC, GLUCOSE (08/01/2024 10:17 AM EDT) Glucometer, POC 82 65 - 199 mg/dL 08/01/2024 10:18 AM EDT [facility] Comment:Supplemental ranges: <140 mg/dL before meals <180 mg/dL all other times of the day. Blood CAPILLARY BLOOD / Unknown 08/01/2024 10:17 AM EDT 08/01/2024 10:18 AM EDT Lisette Maldonado MD POINT OF CARE TEST ORDERABLES [facility] [place] [address] * (ABNORMAL) Blood Gas, Arterial POC (08/01/2024 8:04 AM EDT) pH, Arterial 7.36 7.35 - 7.45 08/01/2024 9:26 AM EDT [facility] PCO2, Arterial 43 35 - 45 mmHg 08/01/2024 9:26 AM EDT [facility] PO2, Arterial 211(H) 85 - 104 mmHg 08/01/2024 9:26 AM EDT [facility] Bicarbonate, Arterial 23.5 20.0 - 26.0 mmol/L 08/01/2024 9:26 AM EDT [facility] Base Excess, Arterial -2.1 -3.0 - 3.0 mmol/L 08/01/2024 9:26 AM EDT [facility] Hemoglobin, Arterial 12.9(L) 13.7 - 16.5 g/dL 08/01/2024 9:26 AM EDT [facility] Oxyhemoglobin, Arterial 96.6 94.0 - 97.0 % 08/01/2024 9:26 AM EDT [facility] Carboxyhemoglobin , Arterial 2.3 % 08/01/2024 9:26 AM EDT [facility] Comment: Nonsmokers: 0.5-1.5% COHB ?? Smokers: Variable ??but usually less than 10% ?? Toxic: 20-30% COHB ?? Lethal: Greater than 60% COHB Methemoglobin, Arterial 0.2 <=1.5 % 08/01/2024 9:26 AM EDT [facility] Sodium, Arterial 137 135 - 145 mmol/L 08/01/2024 9:26 AM EDT [facility] Potassium, Arterial 3.8 3.5 - 5.0 mmol/L 08/01/2024 9:26 AM EDT [facility] Chloride, Arterial 105 98 - 107 mmol/L 08/01/2024 9:26 AM EDT [facility] Lactate, Arterial 2.1 0.5 - 2.2 mmol/L 08/01/2024 9:26 AM EDT [facility] IONIZED CALCIUM, ARTERIAL 1.15 1.15 - 1.33 mmol/L 08/01/2024 9:26 AM EDT [facility] Glucose, Arterial 164 65 - 199 mg/dL 08/01/2024 9:26 AM EDT [facility] Comment:Glucose Concentratio n >=200 mg/dL plus symptoms is consistent with Diabetes Mellitus. Blood ARTERIAL BLOOD / Unknown 08/01/2024 8:04 AM EDT 08/01/2024 9:26 AM EDT Lisette Maldonado MD POINT OF CARE TEST ORDERABLES [facility] [place] [address] * (ABNORMAL) POC, GLUCOSE (08/01/2024 6:23 AM EDT) [facility] Signature Glucometer, POC 208(H) 65 - 199 mg/dL 08/01/2024 6:24 AM EDT [facility] Comment:Supplemental ranges: <140 mg/dL before meals <180 mg/dL all other times of the day. Blood CAPILLARY BLOOD / Unknown 08/01/2024 6:23 AM EDT 08/01/2024 6:25 AM EDT Lisette Maldonado MD POINT OF CARE TEST ORDERABLES [facility] [place] [address] * Scan Doc: Implantable Devices (08/01/2024 12:00 [...] Escobar RN) 0302 (Given - Provider: Lauren Zvaala RN)0826 (Given - Provider: Jeramy Escobar RN)1450 [...] Escobar RN) 0823 (Given - Provider: Jeramy Escoabr RN) metoprolol succinate XL (Toprol-XL) tablet 25 [...] Routine documented in this encounter Care Teams Clinical Exercise Physiologist Relationship Specialty Start Date End Date None None PCP - General 05/27/24 09/17/24 documented as of this encounter
--- OUTSIDE RECORDS SUMMARY | 2024-10-31 17:06 | XMS_ITS | Encounter Summary ---
Author Organization [facility] [place] [address] Care Team Providers Care Medical Doctor Md Name Role Phone None Primary Care Provider Unavailabl e Reason for Visit * Auth/Cert (Routine) Specialty Diagnoses / Procedures Referred By Contac t Referred To Contact Diagnoses CLTI Procedures PRO BYPASS GRAFT OTHR, FEM-TIBIAL @BYPASS GRAFT, FEM-ANT TIBIAL, -POST TIBIAL, -PERONEAL, -DP W\ SYNTHETIC CONDUIT (WRVU 23.66) Lisette Maldonado MD [facility] [place] [address] [facility] Referral ID Status Reason Start Date Expiration Date Visits Re quested Visits Authorized [id number] 1 1 Encounter Details Date Type Department Care Team (Late st Contact Info) Description 08/01/2024 7:28 AM EDT Anesthesia [place] [address] Cornelius Church MD [facility] [place] [address] Marko Mckeon CRNA [facility] [place] [address] Anesthesia Record Procedure Summary Procedure Name Responsible [...] by Lauren Zavala RN PIV 08/01/24; 0637; zvly-[id number] catheter system; 20 gauge; metacarpal vein (top [...] Removal Time: 11008/01/24 0741 by Marko Mckeon, SALES SUPPORT MANAGER 08/01/24 1109 by Marko Mckeon CRNA Arterial Line 08/01/24; 0750; radi al artery, left; 20 gauge; continuous blood pressure monitoring, frequent blood gas measurement; Linda; Sterile Prep, Sterile Gloves; 08/01/24; 08/01/24 0750 by Marko Mckeon, SALES SUPPORT MANAGER 08/01/24 1816 by Jeramy Escobar RN PIV 08/01/24; 0750; 18 g auge; cephalic vein (lateral side of arm), right; Lynnette; LDA not present upon assessment; 09/26/24; 1533 08/01/24 0750 by Marko Mckeon, SALES SUPPORT MANAGER 09/26/24 1533 by Pamela Eli RN Urethral Catheter 08/01/24; 0758; Surg wei longer than 2 hours; indwelling double lumen catheter; 100% silicone; 14; inserted at [facility]; 1; 10; 10; (lube); drainage bag; [...] drink = 0.6 oz pur e alcohol) [facility] Utilities Answer Date Recorded In the past 12 months has e [employer], gas, oil, or water [employer] threatened to shut off services in [...] Procedure Summary Date: 08/01/24 Room / Location: [facility] OR [address] [place] [address] MAIN OR Anesthesia Start: 727 Anesthesia Stop: 1114 Procedure: @BYPASS GRAFT, FEM-ANT TIBIAL, -POST TIBIAL, -PERONEAL, -DP W\ SYNTHETIC CONDUIT (WRVU 23.66) (Left: Leg) Diagnosis: (CLTI) Surgeons: Lisette Maldonado MD Responsible Provider: Cornelius Church MD Anesthesia Type: general ASA Status: 3 All Anesthesia Providers: Anesthesiologist: Cornelius Church MD SALES SUPPORT MANAGER: Marko Mckeon CRNA Vitals Value Taken Time BP 107/65 08/01/24 1315 Temp 36.5 ??C (97.7 ??F) 08/01/24 1315 Pulse 84 08/01/24 1324 Resp 19 08/01/24 1324 SpO2 98 % 08/01/24 1349 Pain Level 9 08/01/24 1331 Vitals shown include unfiled device data. Patient Location: PACU/[facility] Level of Consciousness: Awake and Alert [...] MD at [facility] MAIN OR ??? PRO CABG, ARTERY-VEIN, SINGLE 01/04/2012 @CABG, VENOUS & ARTERIAL GRAFT;SINGLE VEIN GRAFT performed by INNA TOVAR at [facility] MAIN OR ??? PRO ENDOSCOPY W/VIDEO-ASST VEIN HARVEST, CABG 01/04/2012 ENDOSCOPIC HARVEST VEIN(S) FOR CABG performed by INNA TOVAR at [facility] MAIN OR ??? VS ARTERIOGRAM LOWER EXTREMITY VASCULAR SURGERY 07/20/2024 VS Arteriogram Lower Extremity Vascular Surgery 07/20/2024 Taylor Ruiz MD [facility] INTERVENTIONL RAD Social History Tobacco Use [...] risks discussed with patient. Plan discussed with SALES SUPPORT MANAGER. Anesthesia Screening documented in this encounter Plan of Treatment Upcoming Encounters Date Type Department Care Team (Late st Contact Info) Description 11/09/2024 1:30 PM EST Office [place] [address] Isabela Hayward, SHEET METAL DUCT INSTALLER [facility] [place] [address] 11/10/2024 10:00 AM EST Office [place] [address] Dai Whitman APRN 11/21/2024 2:15 PM EST Office [place] [address] Dayanara Grover MD [facility] [place] [address] documented as of this encounter Visit Diagnoses [...] mg documented in this encounter Care Teams Medical Doctor Md Relationship Specialty Start Date End Date None None PCP - General 05/27/24 09/17/24 documented as of this encounter
--- OUTSIDE RECORDS SUMMARY | 2024-10-31 17:06 | XMS_ITS | Encounter Summary ---
Author Organization [facility] [place] [address] Care Team Providers Care Electronic Intelligence Officer Name Role Phone None Primary Care Provider Unavailabl e Encounter Details Date Type Department Care Team (Late st Contact Info) Description 07/24/2024 Telephone [place] [phone] Fallon Lemus RN Social History Tobacco Use Types Packs/Day Years Used Date Smoking Tobacco: Every Day Cigarettes 1 25 Started: 12/28/1986; Last attempted to quit: 12/28/2011 Alcohol Use Standard Drinks/Week Comments No 0 (1 standard drink = 0.6 oz pur e alcohol) [facility] Utilities Answer Date Recorded In [...] living in a correction (including now)? No 07/17/2024 DH IPV Inpatient [...] PM EST Office [place] [phone] Isabela Hayward, LAWN SERVICE SUPERVISOR [facility] [place] [address] 11/10/2024 10:00 AM EST Office [place] [phone] Dai Whitman, LAWN SERVICE SUPERVISOR 11/21/2024 2:15 PM EST Office [place] [phone] Dayanara Grover MD [facility] DR [place] [address] documented as of this encounter Visit Diagnoses Not on filedocumented in this encounter Care Teams Electronic Intelligence Officer Relationship Specialty Start Date End Date None None PCP - General 05/27/24 09/17/24 documented as of this encounter
--- OUTSIDE RECORDS SUMMARY | 2024-10-31 17:06 | XMS_ITS | Encounter Summary ---
Author Organization [facility] Address [facility] [place] [address] Care Team Providers Care Banking Teacher Name Role Phone None Primary Care Provider Unavailabl e Reason for Referral * Diagnostic Test (Routine) - New Request Specialty Diagnoses / Procedures Referred By Contac t Referred To Contact Diagnoses PAD (peripheral artery disease) Procedures ELEN, legs, multiple levels Marko Dickson MD [facility] [place] [address] [facility] Vascular Lab [address] [place] [phone] Referral ID Status Reason Start Date Expiration Date Visits Requested Visits Authorized [id number] New Request Specialty Service Requested 4 08/28/2025 1 1 * Diagnostic Test (Routine) - Pending Review Specialty Diagnoses / Procedures Referred By Contac t Referred To Contact Diagnoses PAD (peripheral artery disease) Procedures Unilat Bypass Graft Assess Marko Dickson MD [facility] [place] [address] [facility] Vascular Lab [address] [place] [phone] Referral ID Status Reason Start Date Expiration Date Visits Requested Visits Authorized [id number] Pending Review Specialty Service Requested 4 08/28/2025 1 1 Encounter Details Date Type Department Care Team (Late st Contact Info) Description 08/28/2024 2:00 PM EDT Office Visit Vascular Surgery at [facility] [place] [address] Marko Dickson MD [facility] [place] [address] PAD (peripheral artery disease) Social History Tobacco [...] in the past 12 m [facility], were you homeless or living in a residential (including now)? No 08/02/2024 [facility] [...] 07/19/24 L 2nd amp (ERIC) 08/01/24 L MEDICARE BILLER TEA, L MEDICARE BILLER to BK pop with PTFE (ERIC) History [...] Text Report Department: Vascular Surgery Lab Patient: [id number] (GEOVANNA ARAYA) CPT: 11206 Referring Physician: DAGO SNIDER Phone: Indications: s/p [...] s/p L 2nd toe amp and L MEDICARE BILLER TEA with MEDICARE BILLER to BK Pop bypass with PTFE. - cont asa/xarelto - cont off loading shoe, and keeping foot clean and dry - sutures removed from 2nd toe amp site - f/u 6months with repeat duplex US documented in this encounter Plan of Treatment Upcoming Encounters Date Type Department Care Team (Late Contact Info) Description 11/09/2024 1:30 PM EST Office Visit [place] [address] Isabela Hayward, SCHOOL JANITOR [facility] [place] [address] 11/10/2024 10:00 AM EST Office Visit [place] [phone] Dai Whitman, RESHMA 11/21/2024 2:15 PM EST Office [place] [phone] Dayanara Grover MD [facility] [place] [address] documented as of this encounter Visit Diagnoses Diagnosis PAD (peripheral artery disease) Peripheral vascular disease, unspecified documented in this encounter Care Teams Banking Teacher Relationship Specialty Start Date End Date None None PCP - General 05/27/24 09/17/24 documented as of this encounter
--- OUTSIDE RECORDS SUMMARY | 2024-10-31 17:06 | XMS_ITS | Encounter Summary ---
Author Organization [facility] [place] [address] Care Team Providers Care Records Management Associate Name Role Phone None Primary Care Provider [...] = 0.6 oz pur e alcohol) [facility] Utilities Answer Date Recorded In the past 12 months has th e electric, gas, oil, or water [employer] threatened to shut off services in your [...] PM EST Office [place] [address] Isabela Hayward APRN [facility] DR INF[place] [address] 11/10/2024 10:00 AM EST Office Visit [place] [address] Dai Whitman APRN 11/21/2024 2:15 PM EST Office [place] [address] Dayanara Grover MD [facility] DR ENDOCRIN[place] [address] documented as of this encounter Visit Diagnoses Not on filedocumented in this encounter Care Teams Records Management Associate Relationship Specialty Start Date End Date None None PCP - General 05/27/24 09/17/24 documented as of this encounter
--- OUTSIDE RECORDS SUMMARY | 2024-10-31 17:06 | XMS_ITS | Encounter Summary ---
Author Organization [facility] Address [facility] [place] [address] Care Team Providers Care News Photographer Name Role Phone None Primary Care Provider Unavailabl e Encounter Details Date Type Department Care Team (Late st Contact Info) Description 08/17/2024 3:30 PM EDT Office Visit [place] [address] Viviana Resendiz, RESHMA [facility] [place] [address] PAD (peripheral artery disease); Encounter for post surgical wound check; Status post amputation of lesser toe of left foot Social History Tobacco Use Types Packs/Day Years Used Date Smoking Tobacco: Every Day Cigarettes 1 25 Started: 12/28/1986; Last attempted to quit: 12/28/2011 Smokeless Tobacco: Never Alcohol Use Standard Drinks/Week Comments No 0 (1 standard drink = 0.6 oz pur e alcohol) [facility] Utilities Answer Date Recorded In the past 12 months has [employer] electric, gas, oil, or water company threatened [...] in a alf (including now)? No 08/02/2024 DH IPV Inpatient [...] 3 times daily. Use as instructed Indications: [id number] each 1 FreeStyle Lancets 28 gauge Misc [...] Center 08/28/2024 1:[address] [place] [facility] V[facility] LAB AMY CROOKS 08/28/2024 2:00 PM Marko Dickson MD [facility] Viviana Resendiz APRN Department of Vascular Surgery documented in this encounter Plan of Treatment Upcoming Encounters Date Type Department Care Team (Late st Contact Info) Description 11/09/2024 1:30 PM EST Office [place] [address] Isabela Hayward APRN [facility] [place] [address] 11/10/2024 10:00 AM EST Office [place] [address] Dai Whitman APRN 11/21/2024 2:15 PM EST Office [place] [address] Dayanara Grover MD [facility] [place] [address] documented as of this encounter Visit Diagnoses Diagnosis PAD (peripheral artery disease) Peripheral vascular disease, unspecified Encounter for post surgical wound check Status post amputation of lesser toe of left foot documented in this encounter Care Teams News Photographer Relationship Specialty Start Date End Date None None PCP - General 05/27/24 09/17/24 documented as of this encounter
--- OUTSIDE RECORDS SUMMARY | 2024-10-31 17:06 | XMS_ITS | Encounter Summary ---
[place] [address] Care Team Providers Care Service Officer Name Role Phone None Primary Care [...] left lower extremity. Vibha Benson APRN [facility] [place] [address] [facility] Cardiology [address] [place] [phone] Referral ID Status Reason Start Date Expiration Date V isits Requested Visits Authorized [id number] Closed Consult, Test & Treat 08/28/2024 08/28/2025 1 1 Encounter Details Date Type Department Care Team (Late st Contact Info) Description 08/28/2024 Orders Only [place] [address] Vibha Benson APRN [facility] [place] [address] Critical limb ischemia of left [...] PM EST Office Visit [place] [address] Isabela Hayward, BUFF WHEEL FABRICATOR [facility] [place] [address] 11/10/2024 10:00 AM EST Office Visit [place] [address] Dai Whitman, RESHMA 11/21/2024 2:15 PM EST Office [place] [address] Dayanara Grover MD [facility] [place] [address] Scheduled Referrals Name Type Priority Associated Diagnoses Order Schedule Referral to Cardiology Outpatient Referral Urgent Critical limb ischemia of left lower extremity Ordered: 08/28/2024 documented as of this encounter Visit Diagnoses Diagnosis Critical limb ischemia of left lower extremity documented in this encounter Care Teams Service Officer Relationship Specialty Start Date End Date None None PCP - General 05/27/24 09/17/24 documented as of this encounter
--- OUTSIDE RECORDS SUMMARY | 2024-10-31 17:06 | XMS_ITS | Encounter Summary ---
Author Organization [facility] [place] [address] Care Team Providers Care Vice President Integrated Name Role Phone None Primary Care Provider [...] drink = 0.6 oz pur e alcohol) [facility] Utilities Answer [...] any time in the past 12 m [facility], were you homeless or living in a usp (including now)? No 08/02/2024 IPV Inpatient Questions [...] PM EST Office [place] [address] Isabela Hayward APRN [facility] [place] [address] 11/10/2024 10:00 AM EST Office [place] [address] Dai Whitman APRN 11/21/2024 2:15 PM EST Office [place] [address] Dayanara Grover MD [facility] [place] [address] documented as of this encounter Visit Diagnoses Not on filedocumented in this encounter Care Teams Vice President Integrated Relationship Specialty Start Date End Date None None PCP - General 05/27/24 09/17/24 documented as of this encounter
--- OUTSIDE RECORDS SUMMARY | 2024-10-31 17:06 | XMS_ITS | Encounter Summary ---
Author Organization [facility] [place] [address] Care Team Providers Care Oil And Gas Superintendent Name Role Phone Charles Romero Primary Care [...] Info) Description 07/27/2024 Telephone [place] [phone] Lisette Maldonado MD [facility] [place] [address] Peer To Peer (Per 5 day protocol [...] drink = 0.6 oz pur e alcohol) [facility] Utilities Answer Date Recorded In the past 12 months has [employer] electric, gas, oil, or water company threatened [...] in the past [address] [facility], were you homeless or living in [...] PM EST Office [place] [address] Isabela Hayawrd, COMMUTATOR OPERATOR [facility] [place] [address] 11/10/2024 10:00 AM EST Office Visit [place] [address] Dai Whitman, RESHMA 11/21/2024 2:15 PM EST Office [place] [address] Dayanara Grover MD [facility] [place] [address] documented as of this encounter Visit Diagnoses Not on filedocumented in this encounter Care Teams Oil And Gas Superintendent Relationship Specialty Start Date End Date Charles Romero [place] [place] [address] PCP - General Internal Medicine 09/18/24 documented as of this encounter
--- OUTSIDE RECORDS SUMMARY | 2024-10-31 17:06 | XMS_ITS | Encounter Summary ---
Author Organization [facility] [place] [address] Care Team Providers Care Creative Recruiter Name Role Phone None Primary Care Provider Unavailabl e Encounter Details Date Type Department Care Team (Late st Contact Info) Description 08/28/2024 1:00 PM EDT Tech [place] [address] Erick Jama [place] Critical limb ischemia of [...] Recorded In the past 12 months has [facility] [email or web address], gas, oil, or water [employer] threatened to shut off services in your [...] any time in the past 12 m [facility], were you homeless or living in [...] PM EST Office [place] [phone] Isabela Hayward APRN [facility] [place] [address] 11/10/2024 10:00 AM EST Office [place] [address] Dai Whitman APRN 11/21/2024 2:15 PM EST Office [place] [phone] Dayanara Grover MD [facility] [place] [address] documented as of this encounter Procedures Procedure Name Priority Date/Time Associated Diagnosis Comments UNILATERAL BYPASS GRAFT ASSESS Routine 08/28/2024 12:55 PM EDT Critical limb ischemia of left lower extremity documented in this encounter Results * Unilat Bypass Graft Assess (08/28/2024 12:55 PM EDT) VB Text Report Department: Vascular Surgery Lab Patient: [id number] (GEOVANNA ARAYA) CPT: 36266 Referring Physician: DAGO SNIDER ?? Phone: Indications: [...] extremity documented in this encounter Care Teams Creative Recruiter Relationship Specialty Start Date End Date None None PCP - General 05/27/24 09/17/24 documented as of this encounter
--- OUTSIDE RECORDS SUMMARY | 2024-10-31 17:07 | XMS_ITS | Encounter Summary ---
Author Organization [facility] [place] [address] Care Team Providers Care Cdl Truck Driver Name Role Phone None Primary [...] living in a fdc (including now)? No 07/17/2024 IPV Inpatient Questions [...] PM EST Office [place] [address] Isabela Hayward APRN [facility] [place] [address] 11/10/2024 10:00 AM EST Office [place] [address] Dai Whitman APRN 11/21/2024 2:15 PM EST Office [place] [address] Dayanara Grover MD [facility] DR [place] [address] documented as of this encounter Visit Diagnoses Not on filedocumented in this encounter Care Teams Cdl Truck Driver Relationship Specialty Start Date End Date None None PCP - General 05/27/24 09/17/24 documented as of this encounter
--- OUTSIDE RECORDS SUMMARY | 2024-10-31 17:07 | XMS_ITS | Encounter Summary ---
[place] [address] Care Team Providers Care Sheet Manager Name Role Phone None Primary Care Provider Unavailabl e Reason for Visit * Auth/Cert (Routine) Specialty Diagnoses / Procedures Referred By William t Referred To Contact Diagnoses Peripheral artery disease Ischemic foot Procedures EMERGENCY IPI Thony Garcia MD [facility] [place] [address] [facility] Referral ID Status Reason Start Date Expiration Date Visits Re quested Visits Authorized [id number] 1 1 Encounter Details Date Type Department Care Team (Late st Contact Info) Description 07/19/2024 8:57 AM EDT Anesthesia [place] [address] Penny Mathias MD [facility] DR [place] [address] Diana Patiño Anesthesia Record Procedure Summary Procedure [...] by Pamela Eli RN PIV 07/16/24; 1845; qicv-bxx-wilmzb catheter system; 22 gauge, 1.75 in length; median vein (underside of arm), left; Ultrasound Guidance; Yes - US guidance used but Image NOT saved; Erick Ponce RN, VAS; distraction, tolerated well, appears comfortable; 0; site symptomatic; 07/21/24; 0008 07/16/24 1845 by Erick Ponce RN 07/21/24 0008 by Carlos Enrique Knowles RN PIV 07/18/24; 1027; hykl-zui-[id number] catheter system; 22 gauge, 1.75 in length; [...] drink = 0.6 oz pur e alcohol) [facility] Utilities Answer Date Recorded In the past 12 months has th e [employer], gas, oil, or water [employer] threatened to shut off services in your [...] Notes * Anesthesia Postprocedure Evaluation - Penny aMthias MD - 07/19/2024 11:47 AM EDT Department of Anesthesiology Post-procedure Note Patient: Lux Dixon Jr. Procedure Summary Date: 07/19/24 Room / Location: [address] MAIN OR Anesthesia Start: 856 Anesthesia Stop: 1111 Procedure: AMPUTATION TOE, METATARSO-PHALANGEAL JOINT (WRVU 3.51) (Left: Toe) Diagnosis: (peripheral artery disease) Surgeons: Thony Garcia MD Responsible Provider: Penny Mathias MD Anesthesia Type: general ASA Status: 3 All Anesthesia Providers: Anesthesiologist: Penny Mathias MD Student Nurse Mechanical Detailer: Diana Patiño Vitals Value Taken Time BP 132/91 07/19/24 1145 Temp 36.1 ??C (97 ??F) 07/19/24 1109 Pulse 82 07/19/24 1145 Resp 15 07/19/24 1145 SpO2 93 % 07/19/24 1145 Pain Level 0 07/19/24 1145 Patient Location: PACU/[facility] Level of Consciousness: Awake and [...] GRAFT performed by INNA TOVAR at [facility] MAIN OR PRO ENDOSCOPY W/VIDEO-ASST VEIN HARVEST, CABG 01/04/2012 ENDOSCOPIC HARVEST VEIN(S) FOR CABG performed by INNA TOVAR at [facility] MAIN OR Social History Tobacco Use [...] PM EST Office [place] [phone] Isabela Hayward, CDL FLATBED TRUCK DRIVER [facility] [place] [address] 11/10/2024 10:00 AM EST Office [place] [address] Dai Whitman, CDL FLATBED TRUCK DRIVER 11/21/2024 2:15 PM EST Office [place] [address] Dayanara Grover MD [facility] [place] [address] documented as of this encounter Visit Diagnoses [...] mg documented in this encounter Care Teams Sheet Manager Relationship Specialty Start Date End Date None None PCP - General 05/27/24 09/17/24 documented as of this encounter
--- OUTSIDE RECORDS SUMMARY | 2024-10-31 17:07 | XMS_ITS | Encounter Summary ---
Author Organization [place] [id number] Care Team Providers Care Correction Officer [facility] Name Role Phone None Primary Care Provider Unavailabl e Reason for Visit * Reason Comments Hospital Transfer * Auth/Cert (Routine) Specialty Diagnoses / Procedures Referred By William t Referred To Contact Diagnoses Peripheral artery disease Ischemic foot Procedures EMERGENCY IPI Thony Garcia MD [facility] VASCULAR [place] [address] [facility] Referral ID Status Reason Start Date Expiration Date Visits Re quested Visits Authorized [id number] 1 1 Encounter Details Date Type Department Care Team (Latest Contact Info) Description 07/14/2024 6:07 PM EDT - 07/21/2024 7:15 PM EDT Hospital Encounter Surgical Unit Level 4 [place] [id number] Thony Garcia MD [facility] VASCULAR [place] [address] Cellulitis of foot, left; Peripheral artery disease; [...] patient has been previously admitted to the [facility] Vascular Surgery service on 05/28 - 06/02 [...] tobacco/substance abuse, narcolepsy/cataplexy, who initially presented to [facility] ED with left foot wounds/cellulitis and concern for limb ischemia [facility]. Recent admit 05/2024 for short segment left popliteal occlusion; he was treated with a heparin drip and antibiotics for cellulitis with improvement. He was discharged on Xarelto 2.5mg BID, aspirin and short course of Augmentin with instructions to be seen in 1 mo [facility], which he did not show for [...] of an occluded SVG-RPDA graft with a LAND SURVEYING SURVEY WORKER of his right coronary artery. He has [...] def ect of the apex without significant kealyn-infarct ischemia. There has been no significant changes [...] 149 Dorsalis Pedis (Ankle) Artery 83 0.55 [place]-Biphasic Posterior Tibial (Ankle) Artery 87 0.57 Monophasic [...] Comments: Geovanna Dixon Jr. [address] [facility] [address] [phone] (home) Telephone Information: Diagnosis: deconditioning with Unsteady gait Significant weakness, ataxia or gait abnormality Patient's: Hgt: Ht Readings from Last 1 Encounters: 07/14/24 : 177.8 cm (5' 10) Wgt: Wt Readings from Last 1 Encounters: 07/14/24 : 99.8 kg (220 lb) VENDOR: Bildero Ordering: Front wheel walker Deliver to [facility] room #: 448A Questions: Device [...] Blood thinner have been sent to your [facility] in [facility]. Anticoagulation: xarelto 20 mg daily Call [...] For any problems or questions please call [phone] For issues on weeknights after 5pm and weekends please call [phone] and ask for the Vascular Fellow utilization engineer. Geovanna-for your diabetes! Most important thing is [...] juice or regular (not diet) soda 6 Qian Xiao'ers small box of raisins 4 glucose tablets [...] Tierney APRN - 07/20/2024 10:13 AM EDT [facility] Interventional Radiology Post Angiography Instructions [...] or hoildays, call and ask for the resident program specialist utilization engineer. OR Vascular Department at until 4:45pm. After 4:45pm call and ask for the Vascular resident utilization engineer. 10. If you are a diabetic and [...] Blood thinner have been sent to your [facility] in [facility]. Anticoagulation: xarelto 20 mg daily Call [...] For any problems or questions please call [phone] For issues on weeknights after 5pm and weekends please call [phone] and ask for the Vascular Fellow utilization engineer. Geovanna-for your diabetes! Most important thing is [...] Carb Controlled 60/60/75g Monitoring: BG Q4 Discharge Planning/detention diabetes care: Medications - Outpatient treatment regimen [...] 3.51) performed by Thony Garcia MD at [facility] MAIN OR PRO CABG, ARTERY-VEIN, SINGLE 01/04/2012 @CABG, VENOUS & ARTERIAL GRAFT;SINGLE VEIN GRAFT performed by NINA TOVAR at [facility] MAIN OR PRO ENDOSCOPY W/VIDEO-ASST VEIN HARVEST, CABG 01/04/2012 ENDOSCOPIC HARVEST VEIN(S) FOR CABG performed by INNA TOVAR at [facility] MAIN OR Active Non-Hospital Problems [...] Anne PT, Doctor of Physical Therapy Pager: [phone] Physical Therapy Inpatient Rehabilitation Department * Carlos [...] Anne PT, Doctor of Physical Therapy Pager: [phone] Physical Therapy Inpatient Rehabilitation Department * Hailey Nick RN - 07/20/2024 10:00 AM EDT ANGIO NURSING DATABASE Name: Geovanna Dixon JrFlorencio Date of : 1975 AGE: 49 y.o. Address: [address] [place] [address] A [facility] [address] Phone: [phone] (home) Mobile: Telephone Information: Referring Provider: Herminio [...] Carb Controlled 60/60/75g Monitoring: BG Q4 Discharge Planning/detention diabetes care: Medications - Outpatient treatment regimen [...] 80 mg 80 mg Oral QPM Cristiano Joens MD 80 mg at 07/19/24 1725 losartan [...] PRN Cristiano Jones MD No current [facility]-ordered outpatient medications on file. Allergies [...] ASA II Rubio Grimaldo MD Vascular Surgery [facility] Vascular Surgery Floor Pager: [phone] Vascular Surgery Consult Pager: [phone] * Rubio Grimaldo MD - 07/20/2024 8:00 [...] patient has been previously admitted to the [facility] Vascular Surgery service on 05/28 - 06/02 [...] Procedure Component Value - Date/Time Anaerobic Culture [[id number]] Collected: 07/19/24950 Lab Status: Preliminary result Specimen: Bone from Toe(s), Left Foot Updated: 07/20/24 1420 Anaerobic Culture No anaerobic organisms isolated to date Fungus culture [[id number]] Collected: 07/19/24950 Lab Status: Preliminary result Specimen: Bone from Toe(s), Left Foot Updated: 07/20/24 0931 Fungus Culture No fungus isolated to date Bone Culture [[id number]] Collected: 07/19/24950 Lab Status: Preliminary result Specimen: Bone from Toe(s), Left Foot Updated: 07/20/24 0650 Bone Culture No growth to date Gram Stain No neutrophils seen No microorganisms seen MRSA PCR Screen [[id number]] (Normal) Collected: 07/16/24 1407 Lab Status: Final result Specimen: Swab from Nares Updated: 07/17/24 1804 MRSA PCR Not Detected Narrative: This test was performed using the Xpert MRSA NxG test kit and is run on the EndoseeXpert Dx System. This test is cleared by the U.S. Food and Drug Administration for clinical use and its performance characteristics have been verified by the Clinical In[facility] and [email or web address] [facility] at [facility]. This test was performed using the Xpert MRSA NxG test kit and is run on the EndoseeXpert Dx System. This test is cleared by the U.S. Food and Drug Administration for clinical use and its performance characteristics have been verified by the Clinical Invar[facility] and [facility] at [facility]. New Studies: ABIs 07/17/24: Findings: Right Pressure (mm Hg) ELEN Waveform TBI Brachial Artery 152 Dorsalis Pedis (Ankle) Artery 167 1.10 Triphasic Posterior Tibial (Ankle) Artery 168 1.11 Triphasic Great Toe 141 0.93 Left Pressure (mm Hg) ELEN Waveform TBI Brachial Artery 149 Dorsalis Pedis (Ankle) Artery 83 0.55 [place]-Biphasic Posterior Tibial (Ankle) Artery 87 0.57 Monophasic [...] questions please contact the health acute care physician that requested your imaging first. Electronically signed by: Geovanna Ray MD, [facility] ([phone]), at 07/14/2024 10:[address] Angiogram Aortic [...] 2.6 cm vessel length at and just [id number], similar to prior. Anterior tibial artery: No [...] questions please contact the health acute care physician that requested your imaging first. Electronically signed by: Geovanna Ray MD, [facility] ([phone]), at 07/15/2024 1:13 AM Assessment & Plan: [...] status: Full Rubio Grimaldo MD 07/20/2024 Pager: [phone] * Fallon Oliva MD - 07/19/2024 3:21 [...] as appropriate. Thanks. Oli Call, ELDON Beeper# [phone] * María Carranza APRN - 07/19/2024 9:54 [...] patient has been previously admitted to the [facility] Vascular Surgery service on 05/28 - 06/02 [...] Component Value - Date/Time MRSA PCR Screen [[id number]] (Normal) Collected: 07/16/24 1407 Lab Status: Final result Specimen: Swab from Nares Updated: 07/17/24 180 MRSA PCR Not Detected Narrative: This test was performed using the Xpert MRSA NxG test kit and is run on the [employer] Operating System GeneXpert Dx System. This test is cleared by the U.S. Food and Drug Administration for clinical use and its performance characteristics have been verified by the Clinical Gen[facility] and [facility] at [facility]. This test was performed using the Xpert MRSA NxG test kit and is run on the [employer] Operating System GeneXpert Dx System. This test is cleared by the U.S. Food and Drug Administration for clinical use and its performance characteristics have been verified by the Clinical [facility] [email or web address] [facility] at [facility]. New Studies: ABIs 07/17/24: Findings: Right Pressure (mm Hg) ELEN Waveform TBI Brachial Artery 152 Dorsalis Pedis (Ankle) Artery 167 1.10 Triphasic Posterior Tibial (Ankle) Artery 168 1.11 Triphasic Great Toe 141 0.93 Left Pressure (mm Hg) ELEN Waveform TBI Brachial Artery 149 Dorsalis Pedis (Ankle) Artery 83 0.55 [place]-Biphasic Posterior Tibial (Ankle) Artery 87 0.57 Monophasic [...] questions please contact the health acute care physician that requested your imaging first. Electronically signed by: Geovanna Ray MD, [facility] ([phone]), at 07/14/2024 10:[address] Angiogram Aortic [...] 2.6 cm vessel length at and just [id number], similar to prior. Anterior tibial artery: No [...] questions please contact the health acute care physician that requested your imaging first. Electronically signed by: Geovanna Ray MD, [facility] ([phone]), at 07/15/2024 1:13 AM Assessment & Plan: [...] status: Full María Carranza APRN 07/19/2024 Pager: [phone] * Oli Call, PT - 07/18/2024 12:53 [...] 13 ; functional mobility OLI CALL, PT Pager:[phone] Physical Therapy Inpatient Rehabilitation Department * Fallon [...] patient has been previously admitted to the [facility] Vascular Surgery service on 05/28 - 06/02 [...] 149 Dorsalis Pedis (Ankle) Artery 83 0.55 [place]-Biphasic Posterior Tibial (Ankle) Artery 87 0.57 Monophasic [...] questions please contact the health acute care physician that requested your imaging first. Electronically signed by: Geovanna Ray MD, [facility] ([phone]), at 07/14/2024 10:[address] Angiogram Aortic [...] 2.6 cm vessel length at and just ifsqj-xcv-bins, similar to prior. Anterior tibial artery: No [...] questions please contact the health acute care physician that requested your imaging first. Electronically signed by: Geovanna Ray MD, [facility] ([phone]), at 07/15/2024 1:13 AM Assessment & Plan: [...] 07/18/2024 Vascular Surgery [phone] * Lakeisha Berry, CLASSROOM PARAPROFESSIONAL - 07/18/2024 10:00 AM EDT Glucose Management Team Inpatient Progress Note HPI Geovanan Dixon Jr. is a 49 y.o. 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 Original consult completed: 07/15 by [...] Carb Controlled 60/60/75g Monitoring: BG Q4 Discharge Planning/superintendent container terminal diabetes care: Medications - Outpatient treatment [...] the consulting service. Lakeisha Berry APRN, DNP, -[facility] Inpatient Diabetes Management Team Team pager #[phone] (DRAFT) Diabetes Discharge Instructions & Recommendations Check [...] VEIN GRAFT performed by INNA TOVAR at [facility] MAIN OR PRO ENDOSCOPY W/VIDEO-ASST VEIN HARVEST, CABG 01/04/2012 ENDOSCOPIC HARVEST VEIN(S) FOR CABG performed by INNA TOVAR at [facility] MAIN OR Social History: Home [...] Billing Code: evaluation OLI CALL, PT Pager: [phone] Physical Therapy Inpatient Rehabilitation Department * Lakeisha Berry, CLASSROOM PARAPROFESSIONAL - 07/17/2024 2:00 PM EDT Glucose Management Team Inpatient Progress Note HPI Geovanna Dixon Jr. is a 49 y.o. 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 Lakeisha Berry APRN, DNP, -[facility] Inpatient Diabetes Management Team Team pager #[phone] * Hermila White APRN - 07/17/2024 7:45 [...] patient has been previously admitted to the [facility] Vascular Surgery service on 05/28 - 06/02 [...] TID insulin lispro 1-6 Units Subcutaneous Q4H [facility] insulin glargine (Lantus;Semglee) (100 unit/mL) [...] questions please contact the health acute care physician that requested your imaging first. Electronically signed by: Geovanna Ray MD, [facility] ([phone]), at 07/14/2024 10:[address] Angiogram Aortic [...] 2.6 cm vessel length at and just ftxlc-goi-fbnw, similar to prior. Anterior tibial artery: No [...] questions please contact the health acute care physician that requested your imaging first. Electronically signed by: Geovanna Ray MD, [facility] ([phone]), at 07/15/2024 1:13 AM Assessment & Plan: [...] (patient unsure whether he was taking this DRIVER MESSENGER) - Glargine 50 units nightly; meal associated lispro ICR 1:6g; moderate correction scale q4hrs - Diabetes management team consult, appreciate recommendations - Home meds: Losartan, metoprolol, protriptyline, PPI, venlafaxine - Full code Hermila White APRN 07/17/2024 Pager: [phone] * Dai Carter RN - 07/17/2024 2:43 [...] patient has been previously admitted to the [facility] Vascular Surgery service on 05/28 - 06/02 [...] questions please contact the health acute care physician that requested your imaging first. Electronically signed by: Geovanna Ray MD, [facility] ([phone]), at 07/14/2024 10:[address] Angiogram Aortic [...] 2.6 cm vessel length at and just [id number]-kbz-osfv, similar to prior. Anterior tibial artery: No [...] questions please contact the health acute care physician that requested your imaging first. Electronically signed by: Geovanna Ray MD, [facility] ([phone]), at 07/15/2024 1:13 AM Assessment & Plan: [...] (patient unsure whether he was taking this DRIVER MESSENGER) - Glargine 45 units nightly; meal associated lispro ICR 1:6g; moderate correction scale q4hrs - Diabetes management team consult, appreciate recommendations - Home meds: Losartan, metoprolol, protriptyline, PPI, venlafaxine - Full code Hermila White APRN 07/16/2024 Pager: [phone] * Dayanara Grover MD - 07/16/2024 8:52 [...] he will need outpatient follow up at [facility] endocrine clinic. He lives in [facility], but notes he has a truck [...] primary team (vascular surgery). Dayanara Grover PGY-5 [facility] Endocrinology Associated attestation - Karen Reno MD [...] patient has been previously admitted to the [facility] Vascular Surgery service on 05/28 - 06/02 [...] or shortness of breath. - Last BM DRIVER MESSENGER Objective: Temp: [36.4 ??C (97.5 ??F)-36.7 ??C [...] questions please contact the health acute care physician that requested your imaging first. Electronically signed by: Geovanna Ray MD, [facility] ([phone]), at 07/14/2024 10:[address] Angiogram Aortic [...] 2.6 cm vessel length at and just xxhwp-fkb-[id number], similar to prior. Anterior tibial artery: No [...] questions please contact the health acute care physician that requested your imaging first. Electronically signed by: Geovanna Ray MD, [facility] ([phone]), at 07/15/2024 1:13 AM Assessment & Plan: [...] (patient unsure whether he was taking this DRIVER MESSENGER) - Glargine 28 units nightly; meal associated lispro ICR 1:8g; moderate correction scale to [id number] - Diabetes management team consult - Home meds: Losartan, metoprolol, protriptyline, PPI, venlafaxine - Full code Hermila White APRN 07/15/2024 Pager: [phone] documented in this encounter H&P Notes * Dejah Marshall MD - 07/14/2024 10:16 PM EDT Images from the original note were not included. Vascular Surgery H&P Note Patient Name: Geovanna Dixon Jr. MR#: [id number] : 1975 Admission Date: 07/14/2024 History of [...] patient has been previously admitted to the [facility] Vascular Surgery service on 05/28 - 06/02 [...] VEIN GRAFT performed by INNA TOVAR at [facility] MAIN OR PRO ENDOSCOPY W/VIDEO-ASST VEIN HARVEST, CABG 01/04/2012 ENDOSCOPIC HARVEST VEIN(S) FOR CABG performed by INNA TOVAR at [facility] MAIN OR Home Medications: Current [...] LACTATEVEN 1.1 No results for input(s): PHART, NGD2GUG, PO2ART, XGR0JCV in the last 72 hours. Studies: No [...] Dejah Marshall MD 07/15/2024 Vascular Surgery Service p.[phone] documented in this encounter Nursing Notes * [...] - 07/14/2024 4:47 PM EDT Sending Facility: [facility] Reason for Transfer: Vascular consult Report: Hx ischemic ulcer and DM T2. Has trouble getting to appointments at [facility] due to long drive. Decreased cap refill L left with streaking and decreased pulses. Lactate 3.2. Glucose 630. Given 10u of regular insulin, 500ml NS, 2g Cefepime, 1.5 vanc. 20g L AC. Vital Signs: Pulse: 97 B/P: 138/94 Resp: RA SPO2: 97% O2 LPM: RA GCS: 15 BGL: Temp: 36.8c Transporting Service: [place] Time of Departure: 1650 ETA: 1800 documented [...] MEDICARE Payor: [employer] MANAGED MEDICARE / Plan: [employer] MANAGED MEDICARE PPO / Product Type: *No Product type* / Secondary Insurance: N/A Prescription Coverage: Yes This plan was formulated with input from patient and team. All are in agreement with plan. IMM on shared list for RS to deliver. Phu Kennedy BLOCK MASON metal trades instructor [phone] * Plan of Care - Carlos Enrique [...] Intervention: Optimize Tissue Perfusion Flowsheets (Taken 07/20/2024 1353) Body Position: (boosted) position changed independently Problem: [...] patient has been previously admitted to the [facility] Vascular Surgery service on 05/28 - 06/02 [...] No Patient is insured through: Primary Insurance: [employer] MANAGED MEDICARE Payor: [employer] MEDICARE / Plan: [employer] MANAGED MEDICARE PPO / Product Type: *No [...] Jones MD - 07/19/2024 10:11 AM EDT [facility] Operative Note Patient Name: Geovanna Dixon Jr. : [id number] MR#: [id number] Case Date: 07/19/2024 Surgeon: Surgeons and Role: [...] 0 BMs this shift. 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 Pt ambulated to the restroom overnight with [...] have. Alternately, during off-hours you may call [phone] to contact a pharmacist. * Plan of [...] patient has been previously admitted to the [facility] Vascular Surgery serviceon 05/28 - 06/02 of [...] VEIN GRAFT performed by INNA TOVAR at [facility] MAIN OR PRO ENDOSCOPY W/VIDEO-ASST VEIN HARVEST, CABG 01/04/2012 ENDOSCOPIC HARVEST VEIN(S) FOR CABG performed by INNA TOVAR at [facility] MAIN OR Active Non-Hospital Problems [...] only Total Minutes, Occupational Therapy: 23 (evaluation ([id number])) OT Evaluation Code Rationale: Diagnosis & Pertinent Co-Morbidities affecting Plan of Care: see PMHx Occupational Profile & Client History: Brief Expanded Extensive X Assessment of Occupational Performance: 1-3 performance deficits X 3-5 performance deficits 5 + performance deficits Clinical Decision Making: Low Moderate High X Clinical decision making of low complexity using standardized patient assessment instrument and measurable assessment of functional outcome. Pager: [phone] Camille Holloway OT 07/17/2024 Occupational Therapy Rehabilitation [...] days) Any patient receiving care in [place] must abide by [place] law. The hierarchy [...] (i) The agent with financial power of corporate associate attorney or a conservator appointed in accordance [...] In the past 12 months has the Shareholder [employer] gas, oil, or water [employer] threatened to shut off services in your [...] DME: none Home Address confirmed as: [address], [place], [place] Social & Family Supports: All names [...] points: Addiction likely Other Pertinent/Service Specific Information: cricket coach to see patient. Hx of cocaine use Health/Prescription Coverage: Primary nsurance: [employer] MANAGED MEDICARE Payor: [employer] MEDICARE / Plan: [employer] MANAGED MEDICARE PPO / Product Type: *No Product type* / Secondary Insurance: N/A ONLY if patient has Medicare A&B - Does this patient have secondary insurance?: No ; Why not?: Managed Medicare Prescription Coverage: Yes Preferred Pharmacy: [facility] - [place], [place] - [address] [facility] [address] [facility] [address] [facility] - [place], [place] - [address] [facility] [address] [facility] [address] Status: Patient is a : No Primary [...] dry andstable, no open areas, no drainage. Continental with povidone- iodine daily and leave open [...] or the wound care team on pager [phone] with skin and wound care concerns or questions. * Consult Note - Cynthia Carreon - 07/17/2024 11:00 AM EDT PT sleeping RC will return. * Consult Note - Pj, Angel Flores MD - 07/17/2024 8:52 AM EDT Images from the original note were not included. [facility] Cardiovascular Medicine [facility] [address] [id number] CARDIOLOGY CONSULT NOTE Date of Consultation: 07/17/2024 [...] tobacco/substance abuse, narcolepsy/cataplexy, who initially presented to [facility] ED with left foot wounds/cellulitis and concern for limb ischemia who was transferred to [facility] for vascular surgery assessment. Recent admit 05/2024 [...] patient has been previously admitted to the [facility] Vascular Surgery service on 05/28 - 06/02 [...] tobacco/substance abuse, narcolepsy/cataplexy, who initially presented to [facility] ED with left foot wounds/cellulitis and concern for limb ischemia [facility]. Recent admit 05/2024 for short segment left popliteal occlusion; he was treated with a heparin drip and antibiotics for cellulitis with improvement. He was discharged on Xarelto 2.5mg BID, aspirin and short course of Augmentin with instructions to be seen in 1 mo [facility], which he did not show for [...] of an occluded SVG-RPDA graft with a LAND SURVEYING SURVEY WORKER of his right coronary artery. He has [...] questions or concerns arise. 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 Diabetes History: Geovanna Dixon Jr. [...] he will need outpatient follow up at [facility] endocrine clinic. He lives in [facility], but notes he has a truck [...] primary team (vascular surgery). Dayanara Grover PGY-5 [facility] Endocrinology Associated attestation - Karen Reno MD [...] seen eye doctor in years, his triglycerides [id number] was very high, needs recheck and aggressive [...] PM EST Office [place] [phone] Isabela Hayward, [employer] PARAP[employer]OFESSIONAL [facility] INFECTIOUS DISE[place] [address] 11/10/2024 10:00 AM EST Office [place] [phone] Dai Whitman APRN 11/21/2024 2:15 PM EST Office Visit Endocrinology at [facility] [place] [phone] Dayanara Grover MD [facility] DR ENDOCRINOLOGY [place] [address] documented as of this encounter Procedures Procedure [...] 49 AM EDT Amputation Toe, Mt-P Jt (40023) 07/19/2024 8:57 AM EDT peripheral artery disease [...] * POC, GLUCOSE (07/21/2024 3:43 PM EDT) [facility] Glucometer, POC 111 65 - 199 mg/dL 07/21/2024 3:44 PM EDT [facility] Comment:Supplemental ranges: <140 mg/dL before meals <180 mg/dL all other times of the day. Blood CAPILLARY BLOOD / Unknown 07/21/2024 3:43 PM EDT 07/21/2024 3:44 PM EDT Thony Garcia MD POINT OF CARE TEST O RDERAHERNANDEZ Performing Organization Address City/[facility]/ZIP Co de Phone Number [facility] [place] [address] * (ABNORMAL) POC, GLUCOSE (07/21/2024 12:18 PM EDT) Glucometer, POC 247(H) 65 - 199 mg/dL 07/21/2024 12:20 PM EDT [facility] Comment:Supplemental ranges: <140 mg/dL before meals <180 mg/dL all other times of the day. Blood CAPILLARY BLOOD / Unknown 07/21/2024 12:18 PM EDT 07/21/2024 12:20 PM EDT Thony Garcia MD POINT OF CARE TEST O GILDA Performing Organization Address [facility] Co de Phone Number [facility] [place] [address] * POC, GLUCOSE (07/21/2024 8:37 AM EDT) Glucometer, POC 163 65 - 199 mg/dL 07/21/2024 8:38 AM EDT [facility] Comment:Supplemental ranges: <140 mg/dL before meals <180 mg/dL all other times of the day. Blood CAPILLARY BLOOD / Unknown 07/21/2024 8:37 AM EDT 07/21/2024 8:38 AM EDT Thony Garcia MD POINT OF CARE TEST O RDERAHERNANDEZ Performing Organization Address City/[facility] Co de Phone Number [facility] [place] [address] * (ABNORMAL) Basic Metabolic Panel (07/21/2024 5:55 AM EDT) Glucose 172 65 - 199 mg/dL 07/21/2024 6:45 AM [facility] Comment:Glucose Concentratio n >=200 mg/dL plus symptoms is consistent with Diabetes Mellitus. Blood Urea Nitrogen 12 10 - 20 mg/dL 07/21/2024 6:45 AM [facility] Creatinine 0.55(L) 0.80 - 1.50 mg/dL 07/21/2024 6:45 AM [facility] Sodium 138 135 - 145 mMol/L 07/21/2024 6:45 AM [facility] Potassium 4.1 3.5 - 5.0 mMol/L 07/21/2024 6:45 AM [facility] Chloride 103 98 - 107 mMol/L 07/21/2024 6:45 AM [facility] Carbon Dioxide 23 22 - 31 mMol/L 07/21/2024 6:45 AM [facility] Anion Gap 12 5 - 15 mMol/L 07/21/2024 6:45 AM [facility] Calcium 9.4 8.5 - 10.5 mg/dL 07/21/2024 6:45 AM [facility] Est Glomerular Filtration Rate - Male 121 mL/min/1. 73 m?? 07/21/2024 6:45 AM [facility] Comment: [...] MD CHEMISTRY ORDERABLES [facility] [place] [address] * (ABNORMAL) CBC (with Diff) (07/21/2024 5:55 [...] NRBC% auto 0.0 % 07/21/2024 6:17 AM [facility] NRBC Absolute 0.00 0.00 - 0.00 x10(3)/mc L 07/21/2024 6:17 AM [facility] Neutrophil % 64.5 % 07/21/2024 6:17 AM [facility] Neutrophil Absolute (ANC) - Automated 6.52(H) 1.70 - 6.10 x10(3)/mc L 07/21/2024 6:17 AM [facility] Lymph % 24.3 % 07/21/2024 6:17 AM [facility] Lymph Absolute 2.46 0.90 - 3.20 x10(3)/mc L 07/21/2024 6:17 AM [facility] Monocyte % 8.4 % 07/21/2024 6:17 AM [facility] Monocyte Absolute 0.85 0.30 - 0.90 x10(3)/mc L 07/21/2024 6:17 AM [facility] Eos % 1.6 % 07/21/2024 6:17 AM [facility] Eos Absolute 0.16 0.00 - 0.40 x10(3)/mc L 07/21/2024 6:17 AM [facility] Basophil % 0.7 % 07/21/2024 6:17 AM [facility] Baso Absolute 0.07 0.00 - 0.10 x10(3)/mc L 07/21/2024 6:17 AM [facility] Immature Gran % 0.5 % 6:17 AM [facility] Immature Gran Absolute 0.05(H) 0.00 - 0.04 x10(3)/mc L 07/21/2024 6:17 AM [facility] Blood VENOUS BLOOD SPECIMEN / Unknown IP Care Team Draw / Unknown 07/21/2024 5:55 AM EDT 07/21/2024 6:13 AM EDT Thony Garcia MD HEMATOLOGY ORDERABLE S [facility] [place] [address] * Phosphorus (07/21/2024 5:55 AM EDT) Phosphorus 3.9 2.5 - 4.5 mg/dL 07/21/2024 6:45 AM EDT [facility] Blood VENOUS BLOOD SPECIMEN / Unknown IP Care Team Draw / Unknown 07/21/2024 5:55 AM EDT 07/21/2024 6:13 AM EDT Thony Garcia MD CHEMISTRY ORDERABLES Performing Organization Address City/[facility]/ZIP Co de Phone Number [facility] [place] [address] * Magnesium (07/21/2024 5:55 AM EDT) Magnesium 0.82 0.69 - 1.07 mMol/L 07/21/2024 6:45 AM EDT [facility] Blood VENOUS BLOOD SPECIMEN / Unknown IP Care Team Draw / Unknown 07/21/2024 5:55 AM EDT 07/21/2024 6:13 AM EDT Thony Garcia MD CHEMISTRY ORDERABLES [facility] [place] [address] * POC, GLUCOSE (07/21/2024 3:57 AM EDT) Glucometer, POC 163 65 - 199 mg/dL 07/21/2024 4:01 AM EDT [facility] Comment:Supplemental ranges: <140 mg/dL before meals <180 mg/dL all other times of the day. Blood CAPILLARY BLOOD / Unknown 07/21/2024 3:57 AM EDT 07/21/2024 4:01 AM EDT Thony Garcia MD POINT OF CARE TEST O GILDA Performing Organization Address [facility] Co de Phone Number [facility] [place] [address] * POC, GLUCOSE (07/20/2024 11:54 PM EDT) Glucometer, POC 190 65 - 199 mg/dL 07/20/2024 11:58 PM EDT [facility] Comment:Supplemental ranges: <140 mg/dL before meals <180 mg/dL all other times of the day. Blood CAPILLARY BLOOD / Unknown 07/20/2024 11:54 PM EDT 07/20/2024 11:58 PM EDT Thony Garcia MD POINT OF CARE TEST O GILDA Performing Organization Address [facility] Co de Phone Number [facility] [place] [address] * POC, GLUCOSE (07/20/2024 8:17 PM EDT) Glucometer, POC 166 65 - 199 mg/dL 07/20/2024 8:17 PM EDT [facility] Comment:Supplemental ranges: <140 mg/dL before meals <180 mg/dL all other times of the day. Blood CAPILLARY BLOOD / Unknown 07/20/2024 8:17 PM EDT 07/20/2024 8:18 PM EDT Thony Garcia MD POINT OF CARE TEST O GILDA Performing Organization Address [facility] Co de Phone Number [facility] [place] [address] * (ABNORMAL) POC, GLUCOSE (07/20/2024 3:51 PM EDT) Glucometer, POC 218(H) 65 - 199 mg/dL 07/20/2024 3:51 PM EDT [facility] Comment:Supplemental ranges: <140 mg/dL before meals <180 mg/dL all other times of the day. Blood CAPILLARY BLOOD / Unknown 07/20/2024 3:51 PM EDT 07/20/2024 3:51 PM EDT Thony Garcia MD POINT OF CARE TEST O GILDA Performing Organization Address [facility] de Phone Number [facility] [place] [address] * POC, GLUCOSE (07/20/2024 10:55 AM EDT) Glucometer, POC 96 65 - 199 mg/dL 07/20/2024 10:56 AM EDT [facility] Comment:Supplemental ranges: <140 mg/dL before meals <180 mg/dL all other times of the day. Blood CAPILLARY BLOOD / Unknown 07/20/2024 10:55 AM EDT 07/20/2024 10:56 AM EDT Thony Garcia MD POINT OF CARE TEST O GILDA Performing Organization Address [facility] de Phone Number [facility] [place] [address] * Vein Map Arm, Bilateral (07/20/2024 10:48 AM EDT) VB Text Report Department: Vascular Surgery Lab Patient: [id number] (GEOVANNA DIXON) CPT: 62172 Referring Physician: THONY GARCIA ?? Indications: Patient [...] Garcia MD VASCULAR ORDERABLES Performing Organization Address City/State/[facility] Co de Phone Number [facility] * VS [...] patient has been previously admitted to the [facility] Vascular Surgery service on 05/28 - 06/02 [...] the sedation RN. Anabel Finney MD, MPH [facility] Vascular Surgery ? Thony Garcia MD IMG IR ORDERABLES * POC, GLUCOSE (07/20/2024 8:12 AM EDT) [facility] Signature Glucometer, POC 119 65 - 199 mg/dL 07/20/2024 8:12 AM EDT [facility] Comment:Supplemental ranges: <140 mg/dL before meals <180 mg/dL all other times of the day. Blood CAPILLARY BLOOD / Unknown 07/20/2024 8:12 AM EDT 07/20/2024 8:12 AM EDT Thony Garcia MD POINT OF CARE TEST O RDERABLES [facility] [place] [address] * (ABNORMAL) CBC (with Diff) (07/20/2024 3:42 AM EDT) White Blood Cell 16.61(H) 4.00 - 9.50 x10(3)/mc L 07/20/2024 4:23 AM [facility] Red Blood Cell 4.44(L) 4.58 - 5.54 x10(6)/mc L 07/20/2024 4:23 AM [facility] Hemoglobin 13.0(L) 13.7 - 16.5 g/dL 07/20/2024 4:23 AM [facility] Hematocrit 39.2(L) 40.5 - 48.5 % 07/20/2024 4:23 AM [facility] Mean Cell Volume 88.3 82.9 - 93.1 fL 07/20/2024 4:23 AM [facility] Mean Cell Hemoglobin 29.3 27.5 - 32.1 pg 07/20/2024 4:23 AM [facility] Mean Cell Hemoglobin Concentration 33.2 32.0 - 35.7 g/dL 07/20/2024 4:23 AM [facility] Platelet 458(H) 145 - 357 x10(3)/mc L 07/20/2024 4:23 AM [facility] Mean Platelet Volume 9.5 7.6 - 12.9 fL 07/20/2024 4:23 AM [facility] RDW Standard Deviation 42.5 36.0 - 45.0 fL 07/20/2024 4:23 AM [facility] RDW coefficient of variation 13.2 11.4 - 13.8 % 07/20/2024 4:23 AM [facility] NRBC% auto 0.0 % 07/20/2024 4:23 AM [facility] NRBC Absolute 0.00 0.00 - 0.00 x10(3)/mc L 07/20/2024 4:23 AM [facility] Neutrophil % 74.2 % 07/20/2024 [...] HEMATOLOGY ORDERABLE S [facility] [place] [address] * (ABNORMAL) POC, GLUCOSE (07/20/2024 3:41 AM EDT) Glucometer, POC 204(H) 65 - 199 mg/dL 07/20/2024 3:41 AM EDT [facility] Comment:Supplemental ranges: <140 mg/dL before meals <180 mg/dL all other times of the day. Blood CAPILLARY BLOOD / Unknown 07/20/2024 3:41 AM EDT 07/20/2024 3:41 AM EDT Thony Garcia MD POINT OF CARE TEST O RDERABLES [facility] [place] [address] * (ABNORMAL) Basic Metabolic Panel (07/20/2024 3:41 AM EDT) Glucose 209(H) 65 - 199 mg/dL 07/20/2024 5:00 AM EDT [facility] Comment:Glucose Concentratio n >=200 mg/dL plus symptoms is consistent with Diabetes Mellitus. Blood Urea Nitrogen 12 10 - 20 mg/dL 07/20/2024 5:00 AM EDT [facility] Creatinine 0.53(L) 0.80 - 1.50 mg/dL 07/20/2024 5:00 AM [facility] Sodium 135 135 - 145 mMol/L 07/20/2024 5:00 AM EDT [facility] Potassium 4.2 3.5 - 5.0 mMol/L 07/20/2024 5:00 AM [facility] Chloride 102 98 - 107 mMol/L 07/20/2024 5:00 AM [facility] Carbon Dioxide 21(L) 22 - 31 mMol/L 07/20/2024 5:00 AM [facility] Anion Gap 12 5 - 15 mMol/L 07/20/2024 5:00 AM [facility] Calcium [...] Garcia MD CHEMISTRY ORDERABLES Performing Organization Address City/[facility]/ZIP Co de Phone Number [facility] [place] [address] * Phosphorus (07/20/2024 3:41 AM EDT) Phosphorus 3.4 2.5 - 4.5 mg/dL 07/20/2024 4:40 AM EDT [facility] Blood VENOUS BLOOD SPECIMEN / Unknown IP Care Team Draw / Unknown 07/20/2024 3:41 AM EDT 07/20/2024 4:09 AM EDT Thony Garcia MD CHEMISTRY ORDERABLES [facility] [place] [address] * Magnesium (07/20/2024 3:41 AM EDT) Magnesium 0.90 0.69 - 1.07 mMol/L 07/20/2024 4:40 AM EDT [facility] Blood VENOUS BLOOD SPECIMEN / Unknown IP Care Team Draw / Unknown 07/20/2024 3:41 AM EDT 07/20/2024 4:09 AM EDT Thony Garcia MD CHEMISTRY ORDERABLES Performing Organization Address [facility] Co de Phone Number [facility] [place] [address] * (ABNORMAL) POC, GLUCOSE (07/20/2024 12:56 AM [...] O RDERABLES Performing Organization Address [facility] Co de Phone Number [facility] [place] [address] * (ABNORMAL) POC, GLUCOSE (07/19/2024 11:04 PM [...] RDERABLES Performing Organization Address City/[facility]/ZIP Co de Phone Number [facility] [place] [address] * (ABNORMAL) POC, GLUCOSE (07/19/2024 7:38 PM EDT) Glucometer, POC 251(H) 65 - 199 mg/dL 07/19/2024 7:39 PM EDT [facility] Comment:Supplemental ranges: <140 mg/dL before meals <180 mg/dL all other times of the day. Blood CAPILLARY BLOOD / Unknown 07/19/2024 7:38 PM EDT 07/19/2024 7:39 PM EDT Thony Garcia MD POINT OF CARE TEST O RDERAHERNANDEZ Performing Organization Address [facility] Co de Phone Number [facility] [place] [address] * POC, GLUCOSE (07/19/2024 4:48 PM EDT) Glucometer, POC 171 65 - 199 mg/dL 07/19/2024 4:49 PM EDT [facility] Comment:Supplemental ranges: <140 mg/dL before meals <180 mg/dL all other times of the day. Blood CAPILLARY BLOOD / Unknown 07/19/2024 4:48 PM EDT 07/19/2024 4:49 PM EDT Thony Garcia MD POINT OF CARE TEST O GILDA Performing Organization Address [facility] Co de Phone Number [facility] [place] [address] * POC, GLUCOSE (07/19/2024 12:21 PM EDT) Glucometer, POC 143 65 - 199 mg/dL 07/19/2024 12:22 PM EDT [facility] Comment:Supplemental ranges: <140 mg/dL before meals <180 mg/dL all other times of the day. Blood CAPILLARY BLOOD / Unknown 07/19/2024 12:21 PM EDT 07/19/2024 12:22 PM EDT Thony Garcia MD POINT OF CARE TEST O GILDA [facility] [place] [address] * POC, GLUCOSE (07/19/2024 11:24 AM EDT) Glucometer, POC 111 65 - 199 mg/dL 07/19/2024 11:24 AM EDT [facility] Comment:Supplemental ranges: <140 mg/dL before meals <180 mg/dL all other times of the day. Blood CAPILLARY BLOOD / Unknown 07/19/2024 11:24 AM EDT 07/19/2024 11:24 AM EDT Thony Garcia MD POINT OF CARE TEST O RDERABLES Performing Organization Address [facility] Co de Phone Number [facility] [place] [address] * Anaerobic Culture (07/19/2024 9:51 AM EDT) Anaerobic Culture No anaerobic organisms isolated 07/23/2024 3:24 PM EDT [facility] Bone STRUCTURE OF TOE OF LEFT FOOT / Unknown 07/19/2024 9:51 AM EDT Comment:PERIPHERAL ARTERY DI SEASE Thony Garcia MD MICROBIOLOGY - GENER AL ORDERABLES Performing Organization Address [facility] Co de Phone Number [facility] [place] [address] * Bone Culture (07/19/2024 9:51 AM EDT) Bone Culture No growth 07/23/2024 12:36 PM EDT [facility] Gram Stain No neutrophils seen 07/23/2024 12:36 PM EDT [facility] Gram Stain No microorganisms seen 07/23/2024 12:36 PM EDT [facility] Bone STRUCTURE OF TOE OF LEFT FOOT / Unknown 07/19/2024 9:51 AM EDT Comment:PERIPHERAL ARTERY DI SEASE Thony Gracia MD MICROBIOLOGY - GENER AL ORDERABLES Performing Organization Address [facility] Co de Phone Number [facility] [place] [address] * AFB culture (07/19/2024 9:51 AM EDT) Acid Fast Bacilli Culture No acid fast bacilli isolated at 8 weeks. 09/13/2024 11:02 AM EST [facility] Bone STRUCTURE OF TOE OF LEFT FOOT / Unknown 07/19/2024 9:51 AM EDT 07/19/2024 10:08 AM EDT Comment:PERIPHERAL ARTERY DI SEASE Thony Garcia MD MICROBIOLOGY - GENER AL ORDERABLES Performing Organization Address [facility] Co de Phone Number [facility] [place] [address] * Fungus culture (07/19/2024 9:51 AM EDT) Fungus Culture No fungus isolated 08/22/2024 9:08 AM EDT [facility] Bone STRUCTURE OF TOE OF LEFT FOOT / Unknown 07/19/2024 9:51 AM EDT 07/19/2024 10:08 AM EDT Comment:PERIPHERAL ARTERY DI SEASE Thony Garcia MD MICROBIOLOGY - GENER AL ORDERABLES Performing Organization Address [facility] Co de Phone Number [facility] [place] [address] * Surgical Pathology (07/19/2024 9:49 AM EDT) Case Report Surgical Pathology Report ? Case: [id number] ? Authorizing Provider: ??Thony Garcia MD ?Collected: ? 07/19/2024 0949 ? Ordering Location: ? Main Operating Room [facility] ?? Received: ?07/19/2024 1009 ? [facility] ? Hospital ? Pathologist: ? Benjamin Shen [...] Sections/Process ing: Blocks submitted for decalcification: A1-A2. Crew Member sections in 2 cassettes as follows: A1-A2: Complete longitudinal section of digit cmk 07/26/2024 1:24 PM EDT [facility] Result Note Routine 07/26/2024 1:24 PM EDT [facility] Tissue STRUCTURE OF TOE OF LEFT FOOT / Unknown 07/19/2024 9:49 AM EDT 07/19/2024 10:09 AM EDT Comment:PERIPHERAL ARTERY DI SEASE Thony Garcia MD PATHOLOGY/CYTOLOGY O RDERAHERNANDEZ [facility] [place] [address] * POC, GLUCOSE (07/19/2024 7:21 AM EDT) Glucometer, POC 195 65 - 199 mg/dL 07/19/2024 7:22 AM EDT [facility] Comment:Supplemental ranges: <140 mg/dL before meals <180 mg/dL all other times of the day. Blood CAPILLARY BLOOD / Unknown 07/19/2024 7:21 AM EDT 07/19/2024 7:22 AM EDT Thony Garcia MD POINT OF CARE TEST O RDERABLES Performing Organization Address [facility] Co de Phone Number [facility] [place] [address] * Heparin (unfractionated) Level (07/19/2024 6:29 AM [...] ORDERABLE S Performing Organization Address [facility]/ZIP Co de Phone Number [facility] [place] [address] * POC, GLUCOSE (07/19/2024 4:24 AM EDT) Glucometer, POC 118 65 - 199 mg/dL 07/19/2024 4:24 AM EDT [facility] Comment:Supplemental ranges: <140 mg/dL before meals <180 mg/dL all other times of the day. Blood CAPILLARY BLOOD / Unknown 07/19/2024 4:24 AM EDT 07/19/2024 4:24 AM EDT Thony Garcia MD POINT OF CARE TEST O RDERABLES [facility] [place] [address] * (ABNORMAL) Basic Metabolic Panel (07/19/2024 3:45 AM EDT) Glucose 117 65 - 199 mg/dL 07/19/2024 4:40 AM EDT [facility] Comment:Glucose Concentratio n >=200 mg/dL plus symptoms is consistent with Diabetes Mellitus. Blood Urea Nitrogen 7(L) 10 - 20 mg/dL 07/19/2024 4:40 AM [facility] Creatinine 0.56(L) 0.80 - 1.50 mg/dL 07/19/2024 4:40 AM [facility] Sodium 138 135 - 145 mMol/L 07/19/2024 4:40 AM [facility] Potassium 3.9 3.5 - 5.0 mMol/L 07/19/2024 4:40 AM [facility] Chloride 103 98 - 107 mMol/L 07/19/2024 4:40 AM [facility] Carbon Dioxide 23 22 - 31 mMol/L 07/19/2024 4:40 AM [facility] Anion Gap 12 5 - 15 mMol/L 07/19/2024 4:40 AM [facility] Calcium 9.6 8.5 - 10.5 mg/dL 07/19/2024 4:40 AM [facility] Est Glomerular Filtration Rate - Male 120 mL/min/1. 73 m?? 07/19/2024 4:40 AM [facility] Comment: [...] MD CHEMISTRY ORDERABLES [facility] [place] [address] * (ABNORMAL) CBC (with Diff) (07/19/2024 3:45 AM EDT) White Blood Cell 12.45(H) 4.00 - 9.50 x10(3)/mc L 07/19/2024 4:09 AM EDT [facility] Red Blood Cell 4.72 4.58 - 5.54 x10(6)/mc L 07/19/2024 4:09 AM EDT [facility] Hemoglobin 13.6(L) 13.7 - 16.5 g/dL 07/19/2024 4:09 AM [facility] Hematocrit 41.0 40.5 - 48.5 % 07/19/2024 4:09 AM EDT [facility] Mean Cell Volume 86.9 82.9 - 93.1 fL 07/19/2024 4:09 AM [facility] Mean Cell Hemoglobin 28.8 27.5 - 32.1 pg 07/19/2024 4:09 AM [facility] Mean Cell Hemoglobin Concentration 33.2 32.0 - 35.7 g/dL 07/19/2024 4:09 AM [facility] Platelet 421(H) 145 - 357 x10(3)/mc L 07/19/2024 4:09 AM [facility] Mean Platelet Volume 9.4 7.6 - 12.9 fL 07/19/2024 4:09 AM [facility] RDW Standard Deviation 41.3 36.0 - 45.0 fL 07/19/2024 4:09 AM [facility] RDW coefficient of variation 13.1 11.4 - 13.8 % 07/19/2024 4:09 AM [facility] NRBC% auto 0.0 % 07/19/2024 4:09 AM [facility] NRBC Absolute 0.00 0.00 - 0.00 x10(3)/mc L 07/19/2024 4:09 AM [facility] Neutrophil % 66.6 % 07/19/2024 4:09 AM [facility] Neutrophil Absolute (ANC) - Automated 8.29(H) 1.70 - 6.10 x10(3)/mc L 07/19/2024 4:09 AM [facility] Lymph % 22.6 % 07/19/2024 4:09 AM [facility] Lymph Absolute 2.81 0.90 - 3.20 x10(3)/mc L 07/19/2024 4:09 AM [facility] Monocyte % 7.5 % 07/19/2024 4:09 AM [facility] Monocyte Absolute 0.93(H) 0.30 - 0.90 x10(3)/mc L 07/19/2024 4:09 AM [facility] Eos % 1.9 % 07/19/2024 4:09 AM [facility] Eos Absolute 0.24 0.00 - 0.40 x10(3)/mc L 07/19/2024 4:09 AM [facility] Basophil % 0.8 % 07/19/2024 4:09 AM [facility] Baso [...] HEMATOLOGY ORDERABLE S [facility] [place] [address] * Phosphorus (07/19/2024 3:45 AM EDT) Phosphorus 4.3 2.5 - 4.5 mg/dL 07/19/2024 4:40 AM EDT [facility] Blood VENOUS BLOOD SPECIMEN / Unknown IP Care Team Draw / Unknown 07/19/2024 3:45 AM EDT 07/19/2024 4:00 AM EDT Thony Garcia MD CHEMISTRY ORDERABLES Performing Organization Address City/[facility]/ZIP Co de Phone Number [facility] [place] [address] * Magnesium (07/19/2024 3:45 AM EDT) Magnesium 0.89 0.69 - 1.07 mMol/L 07/19/2024 4:40 AM EDT [facility] Blood VENOUS BLOOD SPECIMEN / Unknown IP Care Team Draw / Unknown 07/19/2024 3:45 AM EDT 07/19/2024 4:00 AM EDT Thony Garcia MD CHEMISTRY ORDERABLES [facility] [place] [address] * POC, GLUCOSE (07/19/2024 12:01 AM EDT) Glucometer, POC 186 65 - 199 mg/dL 07/19/2024 12:02 AM EDT [facility] Comment:Supplemental ranges: <140 mg/dL before meals <180 mg/dL all other times of the day. Blood CAPILLARY BLOOD / Unknown 07/19/2024 12:01 AM EDT 07/19/2024 12:02 AM EDT Thony Garcia MD POINT OF CARE TEST O GILDA Performing Organization Address City/[facility]/ZIP Co de Phone Number [facility] [place] [address] * POC, GLUCOSE (07/18/2024 9:46 PM EDT) Glucometer, POC 185 65 - 199 mg/dL 07/18/2024 9:47 PM EDT [facility] Comment:Supplemental ranges: <140 mg/dL before meals <180 mg/dL all other times of the day. Blood CAPILLARY BLOOD / Unknown 07/18/2024 9:46 PM EDT 07/18/2024 9:47 PM EDT Thony Garcia MD POINT OF CARE TEST O GILDA [facility] [place] [address] * POC, GLUCOSE (07/18/2024 3:20 PM EDT) Glucometer, POC 134 65 - 199 mg/dL 07/18/2024 3:20 PM EDT [facility] Comment:Supplemental ranges: <140 mg/dL before meals <180 mg/dL all other times of the day. Blood CAPILLARY BLOOD / Unknown 07/18/2024 3:20 PM EDT 07/18/2024 3:21 PM EDT Thony Garcia MD POINT OF CARE TEST O RDERABLES [facility] [place] [address] * (ABNORMAL) POC, GLUCOSE (07/18/2024 11:53 AM EDT) Glucometer, POC 244(H) 65 - 199 mg/dL 07/18/2024 11:53 AM EDT [facility] Comment:Supplemental ranges: <140 mg/dL before meals <180 mg/dL all other times of the day. Blood CAPILLARY BLOOD / Unknown 07/18/2024 11:53 AM EDT 07/18/2024 11:54 AM EDT Thony Garcia MD POINT OF CARE TEST O RDERABLES [facility] [place] [address] * Vancomycin Level, Random (07/18/2024 8:01 AM EDT) [facility] Vancomycin, Random 17.2 mg/L 2023 9:40 AM EDT [facility] Comment:This level is for de termination of the patient's vancomycin yznx-[id number]-jfl-curve (AUC) value. Contact the inpatient pharmacy for interpretation. Blood VENOUS BLOOD SPECIMEN / Unknown IP Care Team Draw / Unknown 07/18/2024 8:01 AM EDT 07/18/2024 8:39 AM EDT Thony Garcia MD CHEMISTRY ORDERABLES [facility] [place] [address] * POC, GLUCOSE (07/18/2024 7:21 AM EDT) Glucometer, POC 177 65 - 199 mg/dL 07/18/2024 7:22 AM EDT [facility] Comment:Supplemental ranges: <140 mg/dL before meals <180 mg/dL all other times of the day. Blood CAPILLARY BLOOD / Unknown 07/18/2024 7:21 AM EDT 07/18/2024 7:22 AM EDT Thony Garcia MD POINT OF CARE TEST O RDERABLES Performing Organization Address [facility] Co de Phone Number [facility] [place] [address] * Heparin (unfractionated) Level (07/18/2024 3:33 AM [...] ORDERABLE S Performing Organization Address [facility]/ZIP Co de Phone Number [facility] [place] [address] * (ABNORMAL) Basic Metabolic Panel (07/18/2024 3:33 AM EDT) Glucose 170 65 - 199 mg/dL 07/18/2024 4:50 AM [facility] Comment:Glucose Concentratio n >=200 mg/dL plus symptoms is consistent with Diabetes Mellitus. Blood Urea Nitrogen 8(L) 10 - 20 mg/dL 07/18/2024 4:50 AM [facility] Creatinine 0.53(L) 0.80 - 1.50 mg/dL 07/18/2024 4:50 AM [facility] Sodium 136 135 - 145 mMol/L 07/18/2024 4:50 AM [facility] Potassium 4.3 3.5 - 5.0 mMol/L 07/18/2024 4:50 AM [facility] Chloride 101 98 - 107 mMol/L 07/18/2024 4:50 AM [facility] Carbon Dioxide 23 22 - 31 mMol/L 07/18/2024 4:50 AM [facility] Anion Gap 12 5 - 15 mMol/L 07/18/2024 4:50 AM [facility] Calcium 9.2 8.5 - 10.5 mg/dL 07/18/2024 4:50 AM [facility] Est Glomerular Filtration Rate - Male 122 mL/min/1. 73 m?? 07/18/2024 4:50 AM [facility] Comment: [...] MD CHEMISTRY ORDERABLES [facility] [place] [address] * (ABNORMAL) CBC (with Diff) (07/18/2024 3:33 [...] 7.6 - 12.9 fL 07/18/2024 4:26 [facility] RDW Standard Deviation 42.0 36.0 - 45.0 fL 07/18/2024 4:26 AM [facility] RDW coefficient of variation 13.1 11.4 - 13.8 % 07/18/2024 4:26 AM [facility] NRBC% auto 0.0 % 07/18/2024 4:26 AM [facility] NRBC Absolute 0.00 0.00 - 0.00 x10(3)/mc L 07/18/2024 4:26 AM [facility] Neutrophil % 68.4 % 07/18/2024 4:26 AM [facility] Neutrophil Absolute (ANC) - Automated 7.91(H) 1.70 - 6.10 x10(3)/mc L 07/18/2024 4:26 AM [facility] Lymph % 21.3 % 07/18/2024 4:26 AM [facility] Lymph Absolute 2.46 0.90 - 3.20 x10(3)/mc L 07/18/2024 4:26 AM [facility] Monocyte % 7.2 % 07/18/2024 4:26 AM [facility] Monocyte Absolute 0.83 0.30 - 0.90 x10(3)/mc L 07/18/2024 4:26 AM [facility] Eos % 1.7 % 07/18/2024 4:26 AM [facility] Eos Absolute 0.20 0.00 - 0.40 x10(3)/mc L 07/18/2024 4:26 AM [facility] Basophil % 0.8 % 07/18/2024 4:26 AM [facility] Baso Absolute 0.09 0.00 - 0.10 x10(3)/mc L 07/18/2024 4:26 AM [facility] Immature Gran % 0.6 % 4:26 AM [facility] Immature Gran Absolute 0.07(H) 0.00 - 0.04 x10(3)/mc L 07/18/2024 4:26 AM [facility] Blood VENOUS BLOOD SPECIMEN / Unknown IP Care Team Draw / Unknown 07/18/2024 3:33 AM EDT 07/18/2024 4:21 AM EDT Thony Garcia MD HEMATOLOGY ORDERABLE S [facility] [place] [address] * Phosphorus (07/18/2024 3:33 AM EDT) Phosphorus 3.7 2.5 - 4.5 mg/dL 07/18/2024 4:50 AM EDT [facility] Blood VENOUS BLOOD SPECIMEN / Unknown IP Care Team Draw / Unknown 07/18/2024 3:33 AM EDT 07/18/2024 4:21 AM EDT Thony Garcia MD CHEMISTRY ORDERABLES Performing Organization Address City/[facility]/ZIP Co de Phone Number [facility] [place] [address] * Magnesium (07/18/2024 3:33 AM EDT) Magnesium 0.88 0.69 - 1.07 mMol/L 07/18/2024 4:50 AM EDT [facility] Blood VENOUS BLOOD SPECIMEN / Unknown IP Care Team Draw / Unknown 07/18/2024 3:33 AM EDT 07/18/2024 4:21 AM EDT Thony Garcia MD CHEMISTRY ORDERABLES Performing Organization Address City/[facility]/ZIP Co de Phone Number [facility] [place] [address] * LDL Cholesterol, Direct (07/18/2024 3:33 AM [...] MD CHEMISTRY ORDERABLES [facility] [place] [address] * HDL/Cholesterol Profile (07/18/2024 3:33 AM EDT) [...] ACC/AHA Guidelines (most recently Johann et al. [facility] 08/11/22): * For individuals with atherosclerotic [...] Garcia MD CHEMISTRY ORDERABLES Performing Organization Address [facility]/ZIP Co de Phone Number [facility] [place] [address] * (ABNORMAL) POC, GLUCOSE (07/18/2024 3:21 AM [...] O RDERABLES Performing Organization Address [facility] Co de Phone Number [facility] [place] [address] * (ABNORMAL) POC, GLUCOSE (07/18/2024 12:44 AM EDT) Glucometer, POC 216(H) 65 - 199 mg/dL 07/18/2024 12:44 AM EDT [facility] Comment:Supplemental ranges: <140 mg/dL before meals <180 mg/dL all other times of the day. Blood CAPILLARY BLOOD / Unknown 07/18/2024 12:44 AM EDT 07/18/2024 12:44 AM EDT Thony Garcia MD POINT OF CARE TEST O RDERABLES [facility] [place] [address] * (ABNORMAL) POC, GLUCOSE (07/17/2024 9:02 PM [...] O RDERABLES Performing Organization Address [facility] Co de Phone Number [facility] [place] [address] * (ABNORMAL) POC, GLUCOSE (07/17/2024 4:07 PM EDT) Glucometer, POC 219(H) 65 - 199 mg/dL 07/17/2024 4:07 PM EDT [facility] Comment:Supplemental ranges: <140 mg/dL before meals <180 mg/dL all other times of the day. Blood CAPILLARY BLOOD / Unknown 07/17/2024 4:07 PM EDT 07/17/2024 4:07 PM EDT Thony Garcia MD POINT OF CARE TEST O DIMITRIERAHERNANDEZ Performing Organization Address [facility] Co de Phone Number [facility] [place] [address] * (ABNORMAL) POC, GLUCOSE (07/17/2024 11:31 AM EDT) Glucometer, POC 255(H) 65 - 199 mg/dL 07/17/2024 11:32 AM EDT [facility] Comment:Supplemental ranges: <140 mg/dL before meals <180 mg/dL all other times of the day. Blood CAPILLARY BLOOD / Unknown 07/17/2024 11:31 AM EDT 07/17/2024 11:32 AM EDT Thony Garcia MD POINT OF CARE TEST O RDTYESHA Performing Organization Address City/[facility] Co de Phone Number [facility] [place] [address] * POC, GLUCOSE (07/17/2024 7:38 AM EDT) Glucometer, POC 112 65 - 199 mg/dL 07/17/2024 7:38 AM EDT [facility] Comment:Supplemental ranges: <140 mg/dL before meals <180 mg/dL all other times of the day. Blood CAPILLARY BLOOD / Unknown 07/17/2024 7:38 AM EDT 07/17/2024 7:38 AM EDT Thony Garcia MD POINT OF CARE TEST O RDERABLES [facility] [place] [address] * ELEN, legs, multiple levels (07/17/2024 6:31 AM EDT) VB Text Report Department: Vascular Surgery Lab Patient: [id number] (GEOVANNA DIXON) CPT: 27824 Referring Physician: VIBHA TIERNEY ?? Indications: PAD [...] ? Dorsalis Pedis (Ankle) Artery ?83 ?0.55 ??[place]-Biphasic ? Posterior Tibial (Ankle) Artery ??87 ?0.57 [...] APRN VASCULAR ORDERABLE S Performing Organization Address City/[facility]/ZIP Co de Phone Number VASCUBASE [...] RDERABLES Performing Organization Address City/[facility] Co de Phone Number [facility] [place] [address] * Heparin (unfractionated) Level (07/17/2024 3:42 AM [...] ORDERABLE S Performing Organization Address [facility] Co de Phone Number [facility] [place] [address] * Phosphorus (07/17/2024 3:42 AM EDT) Phosphorus 3.6 2.5 - 4.5 mg/dL 07/17/2024 4:47 AM EDT [facility] Blood VENOUS BLOOD SPECIMEN / Unknown IP Care Team Draw / Unknown 07/17/2024 3:42 AM EDT 07/17/2024 4:15 AM EDT Thony Garcia MD CHEMISTRY ORDERABLES Performing Organization Address [facility] Co de Phone Number [facility] [place] [address] * Magnesium (07/17/2024 3:42 AM EDT) Magnesium 0.78 0.69 - 1.07 mMol/L 07/17/2024 4:47 AM EDT [facility] Blood VENOUS BLOOD SPECIMEN / Unknown IP Care Team Draw / Unknown 07/17/2024 3:42 AM EDT 07/17/2024 4:15 AM EDT Thony Garcia MD CHEMISTRY ORDERABLES Performing Organization Address [facility] Co de Phone Number [facility] [place] [address] * (ABNORMAL) Basic Metabolic Panel (07/17/2024 3:42 AM EDT) Glucose 225(H) 65 - 199 mg/dL 07/17/2024 4:47 AM [facility] Comment:Glucose Concentratio n >=200 mg/dL plus symptoms is consistent with Diabetes Mellitus. Blood Urea Nitrogen 9(L) 10 - 20 mg/dL 07/17/2024 4:47 AM [facility] Creatinine 0.49(L) 0.80 - 1.50 mg/dL 07/17/2024 4:47 AM [facility] Sodium 135 135 - 145 mMol/L 07/17/2024 4:47 AM [facility] Potassium 3.7 3.5 - 5.0 mMol/L 07/17/2024 4:47 AM [facility] Chloride 103 98 - 107 mMol/L 07/17/2024 4:47 AM [facility] Carbon Dioxide 21(L) 22 - 31 mMol/L 07/17/2024 4:47 AM [facility] Anion Gap 11 5 - 15 mMol/L 07/17/2024 4:47 AM [facility] Calcium 9.1 8.5 - 10.5 mg/dL 07/17/2024 4:47 AM [facility] Est Glomerular Filtration Rate - Male 125 mL/min/1. 73 m?? 07/17/2024 4:47 AM [facility] Comment: [...] MD CHEMISTRY ORDERABLES [facility] [place] [address] * (ABNORMAL) CBC (with Diff) (07/17/2024 3:42 AM EDT) White Blood Cell 11.02(H) 4.00 - 9.50 x10(3)/mc L 07/17/2024 4:21 AM EDT [facility] Red Blood Cell 4.43(L) 4.58 - 5.54 x10(6)/mc L 07/17/2024 4:21 AM [facility] Hemoglobin 13.1(L) 13.7 - 16.5 g/dL 07/17/2024 4:21 AM [facility] Hematocrit 38.8(L) 40.5 - 48.5 % 07/17/2024 4:21 AM [facility] Mean Cell Volume 87.6 82.9 - 93.1 fL 07/17/2024 4:21 AM [facility] Mean Cell Hemoglobin 29.6 27.5 - 32.1 pg 07/17/2024 4:21 AM [facility] Mean Cell Hemoglobin Concentration 33.8 32.0 - 35.7 g/dL 07/17/2024 4:21 AM [facility] Platelet 367(H) 145 - 357 x10(3)/mc L 07/17/2024 4:21 AM [facility] Mean Platelet Volume 9.7 7.6 - 12.9 fL 07/17/2024 4:21 AM [facility] RDW Standard Deviation 41.5 36.0 - 45.0 fL 07/17/2024 4:21 AM [facility] RDW coefficient of variation 13.0 11.4 - 13.8 % 07/17/2024 4:21 AM [facility] NRBC% auto 0.0 % 07/17/2024 4:21 AM [facility] NRBC Absolute 0.00 0.00 - 0.00 x10(3)/mc L 07/17/2024 4:21 AM [facility] Neutrophil % 70.4 % 07/17/2024 4:21 AM [facility] Neutrophil Absolute (ANC) - Automated 7.76(H) 1.70 - 6.10 x10(3)/mc L 07/17/2024 4:21 AM [facility] Lymph % 20.9 % 07/17/2024 4:21 AM [facility] Lymph Absolute 2.30 0.90 - 3.20 x10(3)/mc L 07/17/2024 4:21 AM [facility] Monocyte % 6.0 % 07/17/2024 4:21 AM [facility] Monocyte Absolute 0.66 0.30 - 0.90 x10(3)/mc L 07/17/2024 4:21 AM [facility] Eos % 1.6 % 07/17/2024 4:21 AM [facility] Eos Absolute 0.18 0.00 - 0.40 x10(3)/mc L 07/17/2024 4:21 AM [facility] Basophil % 0.5 % 07/17/2024 4:21 AM [facility] Baso Absolute 0.05 0.00 - 0.10 x10(3)/mc L 07/17/2024 4:21 AM [facility] Immature Gran % 0.6 % 4:21 AM [facility] Immature Gran Absolute 0.07(H) 0.00 - 0.04 x10(3)/mc L 07/17/2024 4:21 AM EDT [facility] Blood VENOUS BLOOD SPECIMEN / Unknown IP Care Team Draw / Unknown 07/17/2024 3:42 AM EDT 07/17/2024 4:15 AM EDT Tohny Garcia MD HEMATOLOGY ORDERABLE S Performing Organization Address [facility] Co de Phone Number [facility] [place] [address] * (ABNORMAL) POC, GLUCOSE (07/17/2024 2:25 AM EDT) Glucometer, POC 262(H) 65 - 199 mg/dL 07/17/2024 2:25 AM EDT [facility] Comment:Supplemental ranges: <140 mg/dL before meals <180 mg/dL all other times of the day. Blood CAPILLARY BLOOD / Unknown 07/17/2024 2:25 AM EDT 07/17/2024 2:25 AM EDT Thony Garcia MD POINT OF CARE TEST O RDERAHERNANDEZ Performing Organization Address [facility] Phone Number [facility] [place] [address] * (ABNORMAL) POC, GLUCOSE (07/17/2024 12:19 AM EDT) Glucometer, POC 262(H) 65 - 199 mg/dL 07/17/2024 12:19 AM EDT [facility] Comment:Supplemental ranges: <140 mg/dL before meals <180 mg/dL all other times of the day. Blood CAPILLARY BLOOD / Unknown 07/17/2024 12:19 AM EDT 07/17/2024 12:20 AM EDT Thony Garcia MD POINT OF CARE TEST O GILDA Performing Organization Address [facility] Co de Phone Number [facility] [place] [address] * (ABNORMAL) POC, GLUCOSE (07/16/2024 8:22 PM EDT) Glucometer, POC 217(H) 65 - 199 mg/dL 07/16/2024 8:23 PM EDT [facility] Comment:Supplemental ranges: <140 mg/dL before meals <180 mg/dL all other times of the day. Blood CAPILLARY BLOOD / Unknown 07/16/2024 8:22 PM EDT 07/16/2024 8:23 PM EDT Thony Garcia MD POINT OF CARE TEST O GILDA Performing Organization Address [facility] Co de Phone Number [facility] [place] [address] * POC, GLUCOSE (07/16/2024 3:47 PM EDT) Glucometer, POC 184 65 - 199 mg/dL 07/16/2024 3:47 PM EDT [facility] Comment:Supplemental ranges: <140 mg/dL before meals <180 mg/dL all other times of the day. Blood CAPILLARY BLOOD / Unknown 07/16/2024 3:47 PM EDT 07/16/2024 3:48 PM EDT Thony Garcia MD POINT OF CARE TEST Stephanie VO Performing Organization Address [facility] Co de Phone Number [facility] [place] [address] * Heparin (unfractionated) Level (07/16/2024 3:39 PM [...] S Performing Organization Address City/[facility]/ZIP Co de Phone Number [facility] [place] [address] * Potassium (07/16/2024 3:39 PM EDT) Pathologist [facility] Potassium 3.9 3.5 - 5.0 mMol/L 07/16/2024 4:15 PM EDT [facility] Blood VENOUS BLOOD SPECIMEN / Unknown IP Care Team Draw / Unknown 07/16/2024 3:39 PM EDT 07/16/2024 3:47 PM EDT Hermila White APRN CHEMISTRY ORDERABL ES [facility] [place] [address] * MRSA PCR Screen (07/16/2024 2:07 PM EDT) MRSA PCR Not Detected 07/17/2024 6:04 PM EDT [facility] Swab BOTH ANTERIOR NARES / Unknown Non Blood Collection / Unknown 07/16/2024 2:07 PM EDT 07/16/2024 2:13 PM EDT Narrative [facility] - 07/17/2024 6:04 PM EDT This test was performed using the Xpert MRSA NxG test kit and is run on the [employer] GeneXpert Dx System. This test is cleared by the U.S. Food and Drug Administration for clinical use and its performance characteristics have been verified by the [facility] at [facility]. This test was performed using the Xpert MRSA NxG test kit and is run on the [employer] GeneXpert Dx System. This test is cleared by the U.S. Food and Drug Administration for clinical use and its performance characteristics have been verified by the [facility] at [facility]. Hermila White APRN MOLECULAR ORDERABL ES Performing Organization Address City/[facility] Co de Phone Number [facility] [place] [address] * POC, GLUCOSE (07/16/2024 1:33 PM EDT) Glucometer, POC 183 65 - 199 mg/dL 07/16/2024 1:33 PM EDT [facility] Comment:Supplemental ranges: <140 mg/dL before meals <180 mg/dL all other times of the day. Blood CAPILLARY BLOOD / Unknown 07/16/2024 1:33 PM EDT 07/16/2024 1:33 PM EDT Thony Garcia MD POINT OF CARE TEST O RDERABLES Performing Organization Address [facility]/ZIP Co de Phone Number [facility] [place] [address] * (ABNORMAL) POC, GLUCOSE (07/16/2024 11:41 AM [...] O RDERABLES Performing Organization Address [facility] Co de Phone Number [facility] [place] [address] * Heparin (unfractionated) Level (07/16/2024 9:41 AM [...] ORDERABLE S Performing Organization Address [facility]/ZIP Co de Phone Number [facility] [place] [address] * (ABNORMAL) POC, GLUCOSE (07/16/2024 7:10 AM [...] RDERABLES Performing Organization Address City/[facility]/ZIP Co de Phone Number [facility] [place] [address] * (ABNORMAL) Potassium (07/16/2024 4:15 AM EDT) Potassium 3.2(L) 3.5 - 5.0 mMol/L 07/16/2024 4:53 AM EDT [facility] Blood VENOUS BLOOD SPECIMEN / Unknown IP Care Team Draw / Unknown 07/16/2024 4:15 AM EDT 07/16/2024 4:23 AM EDT Thony Garcia MD CHEMISTRY ORDERABLES Performing Organization Address [facility] Co de Phone Number [facility] [place] [address] * Phosphorus (07/16/2024 4:15 AM EDT) Phosphorus 3.7 2.5 - 4.5 mg/dL 07/16/2024 4:53 AM EDT [facility] Blood VENOUS BLOOD SPECIMEN / Unknown IP Care Team Draw / Unknown 07/16/2024 4:15 AM EDT 07/16/2024 4:23 AM EDT Thony Garcia MD CHEMISTRY ORDERABLES Performing Organization Address City/[facility] Co de Phone Number [facility] [place] [address] * POC, GLUCOSE (07/16/2024 4:14 AM EDT) Glucometer, POC 187 65 - 199 mg/dL 07/16/2024 4:17 AM EDT [facility] Comment:Supplemental ranges: <140 mg/dL before meals <180 mg/dL all other times of the day. Blood CAPILLARY BLOOD / Unknown 07/16/2024 4:14 AM EDT 07/16/2024 4:17 AM EDT Thony Garcia MD POINT OF CARE TEST O GILDA Performing Organization Address City/[facility]/ZIP Co de Phone Number [facility] [place] [address] * (ABNORMAL) POC, GLUCOSE (07/16/2024 2:07 AM EDT) Glucometer, POC 254(H) 65 - 199 mg/dL 07/16/2024 2:08 AM EDT [facility] Comment:Supplemental ranges: <140 mg/dL before meals <180 mg/dL all other times of the day. Blood CAPILLARY BLOOD / Unknown 07/16/2024 2:07 AM EDT 07/16/2024 2:08 AM EDT Thony Garcia MD POINT OF CARE TEST Stephanie VO Performing Organization Address City/[facility] Co de Phone Number [facility] [place], [place] [id number] * Heparin (unfractionated) Level (07/16/2024 2:07 AM [...] ORDERABLE S Performing Organization Address [facility]/ZIP Co de Phone Number [facility] [place] [address] * Magnesium (07/16/2024 2:07 AM EDT) Magnesium 0.83 0.69 - 1.07 mMol/L 07/16/2024 2:47 AM EDT [facility] Blood VENOUS BLOOD SPECIMEN / Unknown IP Care Team Draw / Unknown 07/16/2024 2:07 AM EDT 07/16/2024 2:14 AM EDT Thony Garcia MD CHEMISTRY ORDERABLES Performing Organization Address City/[facility]/ZIP Co de Phone Number [facility] [place] [address] * (ABNORMAL) Basic Metabolic Panel (07/16/2024 2:07 [...] MD CHEMISTRY ORDERABLES [facility] [place] [address] * (ABNORMAL) CBC (with Diff) (07/16/2024 2:07 AM EDT) White Blood Cell 11.08(H) 4.00 - 9.50 x10(3)/mc L 07/16/2024 2:23 AM EDT [facility] Red Blood Cell 4.29(L) 4.58 - 5.54 x10(6)/mc L 07/16/2024 2:23 AM EDT [facility] Hemoglobin 12.7(L) 13.7 - 16.5 g/dL 07/16/2024 2:23 AM [facility] Hematocrit 36.6(L) 40.5 - 48.5 % 07/16/2024 2:23 AM [facility] Mean Cell Volume 85.3 82.9 - 93.1 fL 07/16/2024 2:23 AM [facility] Mean Cell Hemoglobin 29.6 27.5 - 32.1 pg 07/16/2024 2:23 AM [facility] Mean Cell Hemoglobin Concentration 34.7 32.0 - 35.7 g/dL 07/16/2024 2:23 AM [facility] Platelet 363(H) 145 - 357 x10(3)/mc L 07/16/2024 2:23 AM [facility] Mean Platelet Volume 10.3 7.6 - 12.9 fL 07/16/2024 2:23 AM [facility] RDW Standard Deviation 39.2 36.0 - 45.0 fL 07/16/2024 2:23 AM [facility] RDW coefficient of variation 12.7 11.4 - 13.8 % 07/16/2024 2:23 AM [facility] NRBC% auto 0.0 % 07/16/2024 2:23 AM [facility] NRBC Absolute 0.00 0.00 - 0.00 x10(3)/mc L 07/16/2024 2:23 AM [facility] Neutrophil % 66.2 % 07/16/2024 2:23 AM [facility] Neutrophil Absolute (ANC) - Automated 7.33(H) 1.70 - 6.10 x10(3)/mc L 07/16/2024 2:23 AM [facility] Lymph % 24.2 % 07/16/2024 2:23 AM [facility] Lymph Absolute 2.68 0.90 - [...] HEMATOLOGY ORDERABLE S [facility] [place] [address] * (ABNORMAL) POC, GLUCOSE (07/16/2024 12:04 AM EDT) [facility] Signature Glucometer, POC 324(H) 65 - 199 mg/dL 07/16/2024 12:05 AM EDT [facility] Comment:Supplemental ranges: <140 mg/dL before meals <180 mg/dL all other times of the day. Blood CAPILLARY BLOOD / Unknown 07/16/2024 12:04 AM EDT 07/16/2024 12:05 AM EDT Thony Garcia MD POINT OF CARE TEST O GILDA Performing Organization Address [facility] Co de Phone Number [facility] [place] [address] * (ABNORMAL) POC, GLUCOSE (07/15/2024 8:36 PM EDT) Glucometer, POC 274(H) 65 - 199 mg/dL 07/15/2024 8:36 PM EDT [facility] Comment:Supplemental ranges: <140 mg/dL before meals <180 mg/dL all other times of the day. Blood CAPILLARY BLOOD / Unknown 07/15/2024 8:36 PM EDT 07/15/2024 8:36 PM EDT Thony Garcia MD POINT OF CARE TEST Stephanie VO Performing Organization Address [facility] Co de Phone Number [facility] [place] [address] * Heparin (unfractionated) Level (07/15/2024 8:21 PM [...] ORDERABLE S Performing Organization Address [facility] Co de Phone Number [facility] [place] [address] * (ABNORMAL) POC, GLUCOSE (07/15/2024 4:41 PM [...] O RDERABLES Performing Organization Address [facility] Co de Phone Number [facility] [place] [address] * (ABNORMAL) Vancomycin, trough (07/15/2024 2:19 PM EDT) Vancomycin, Trough 9.7(L) 10.0 - 20.0 mg/L 07/15/2024 3:28 PM EDT [facility] Comment: Varies according to infection source. Blood VENOUS BLOOD SPECIMEN / Unknown IP Care Team Draw / Unknown 07/15/2024 2:19 PM EDT 07/15/2024 3:00 PM EDT Thony Garcia MD CHEMISTRY ORDERABLES Performing Organization Address [facility] Co de Phone Number [facility] [place] [address] * (ABNORMAL) POC, GLUCOSE (07/15/2024 1:16 PM EDT) Glucometer, POC 223(H) 65 - 199 mg/dL 07/15/2024 1:17 PM EDT [facility] Comment:Supplemental ranges: <140 mg/dL before meals <180 mg/dL all other times of the day. Blood CAPILLARY BLOOD / Unknown 07/15/2024 1:16 PM EDT 07/15/2024 1:18 PM EDT Thony Garcia MD POINT OF CARE TEST O GILDA Performing Organization Address [facility] Co de Phone Number [facility] [place] [address] * POC, GLUCOSE (07/15/2024 8:34 AM EDT) Glucometer, POC 133 65 - 199 mg/dL 07/15/2024 8:35 AM EDT [facility] Comment:Supplemental ranges: <140 mg/dL before meals <180 mg/dL all other times of the day. Blood CAPILLARY BLOOD / Unknown 07/15/2024 8:34 AM EDT 07/15/2024 8:35 AM EDT Thony Garcia MD POINT OF CARE TEST O GILDA Performing Organization Address [facility] de Phone Number [facility] [place] [address] * (ABNORMAL) POC, GLUCOSE (07/15/2024 4:44 AM EDT) Glucometer, POC 224(H) 65 - 199 mg/dL 07/15/2024 4:44 AM EDT [facility] Comment:Supplemental ranges: <140 mg/dL before meals <180 mg/dL all other times of the day. Blood CAPILLARY BLOOD / Unknown 07/15/2024 4:44 AM EDT 07/15/2024 4:44 AM EDT Thony Garcia MD POINT OF CARE TEST O GILDA Performing Organization Address [facility] Co de Phone Number [facility] [place] [address] * (ABNORMAL) POC, GLUCOSE (07/15/2024 2:48 AM EDT) Glucometer, POC 281(H) 65 - 199 mg/dL 07/15/2024 2:48 AM EDT [facility] Comment:Supplemental ranges: <140 mg/dL before meals <180 mg/dL all other times of the day. Blood CAPILLARY BLOOD / Unknown 07/15/2024 2:48 AM EDT 07/15/2024 2:48 AM EDT Thony Garcia MD POINT OF CARE TEST O RDERABLES [facility] [place] [address] * (ABNORMAL) Basic Metabolic Panel (07/15/2024 12:45 [...] MD CHEMISTRY ORDERABLES [facility] [place] [address] * (ABNORMAL) CBC (with Diff) (07/15/2024 12:45 [...] 40.5 - 48.5 % 07/15/2024 1:05 AM [facility] Mean Cell Volume 86.4 82.9 - 93.1 fL 07/15/2024 1:05 AM [facility] Mean Cell Hemoglobin 29.3 27.5 - 32.1 pg 07/15/2024 1:05 AM [facility] Mean Cell Hemoglobin Concentration 33.9 32.0 - 35.7 g/dL 07/15/2024 1:05 AM [facility] Platelet 322 145 - 357 x10(3)/mc L 07/15/2024 1:05 AM [facility] Mean Platelet Volume 9.9 7.6 - 12.9 fL 07/15/2024 1:05 AM [facility] RDW Standard Deviation 40.2 36.0 - 45.0 fL 07/15/2024 1:05 AM [facility] RDW coefficient of variation 12.9 11.4 - 13.8 % 07/15/2024 1:05 AM [facility] NRBC% auto 0.0 % 07/15/2024 1:05 AM [facility] NRBC Absolute 0.00 0.00 - 0.00 x10(3)/mc L 07/15/2024 1:05 AM [facility] Neutrophil % 74.9 % 07/15/2024 1:05 AM [facility] Neutrophil Absolute (ANC) - Automated 8.75(H) 1.70 - 6.10 x10(3)/mc L 07/15/2024 1:05 AM [facility] Lymph % 16.3 % 07/15/2024 1:05 AM [facility] Lymph Absolute 1.91 0.90 - 3.20 x10(3)/mc L 07/15/2024 1:05 AM [facility] Monocyte % 6.6 % 07/15/2024 1:05 AM [facility] Monocyte [...] S Performing Organization Address City/[facility]/ZIP Co de Phone Number [facility] [place] [address] * (ABNORMAL) POC, GLUCOSE (07/15/2024 12:29 AM EDT) [facility] Signature Glucometer, POC 394(H) 65 - 199 mg/dL 07/15/2024 12:30 AM EDT [facility] Comment:Supplemental ranges: <140 mg/dL before meals <180 mg/dL all other times of the day. Blood CAPILLARY BLOOD / Unknown 07/15/2024 12:29 AM EDT 07/15/2024 12:30 AM EDT Thony Garcia MD POINT OF CARE TEST O RDERABLES [facility] [place] [address] * CT Angiogram Aortic Lower Extremity Runoff (07/14/2024 11:57 PM EDT) WORKSTATION ID [id number] RAD Anatomical Region Laterality Modality Abdomen Computed [...] questions please contact the health acute care physician that requested your imaging first. ? Narrative [...] 2.6 cm vessel length at and just [id number], similar to prior. Anterior tibial artery: No [...] the intravenous administration of contrast. 149 cc [id number]. Maximum intensity projection (MIP) were reformatted. 3-D [...] 2.6 cm vessel length at and just [id number], similar toprior. Anterior tibial artery: No stenosis. [...] have questions please contactthe health acute care physician that requested your imaging first. Electronically signed by: Geovanna Ray MD, [facility]([phone]), at 07/15/2024 1:13 AM Thony Garcia MD IMG CT ORDERABLES * XR Foot Min 3 views Left (Generic) (07/14/2024 9:11 PM EDT) GoodRx WORKSTATION ID [id number] RAD Anatomical Region Laterality Modality Foot Left [...] questions please contact the health acute care physician that requested your imaging first. ? Electronically signed by: Geovanna Ray MD, [facility] ??([phone]), at 07/14/2024 10:26 PM Narrative 07/14/2024 10:26 [...] have questions please contactthe health acute care physician that requested your imaging first. Arthur Patel DO IMG DX ORDERABLES * Lactate Whole Blood POC (07/14/2024 7:41 PM EDT) Pathologist [facility] Lactate, Whole Blood 1.1 0.5 - 2.2 mmol/L 07/14/2024 7:42 PM EDT [facility] Blood ARTERIAL BLOOD / Unknown 07/14/2024 7:41 PM EDT 07/14/2024 7:42 PM EDT Unknown POINT OF CARE TEST O RDERABLES [facility] [place] [address] * (ABNORMAL) Basic Metabolic Panel (07/14/2024 7:39 PM EDT) Glucose 341(H) 65 - 199 mg/dL 07/14/2024 8:13 PM [facility] Comment:Glucose Concentratio n >=200 mg/dL plus symptoms is consistent with Diabetes Mellitus. Blood Urea Nitrogen 6(L) 10 - 20 mg/dL 07/14/2024 8:13 PM [facility] Creatinine 0.53(L) 0.80 - 1.50 mg/dL 07/14/2024 8:13 PM [facility] Sodium 137 135 - 145 mMol/L 07/14/2024 8:13 PM [facility] Potassium 3.7 3.5 - 5.0 mMol/L 07/14/2024 8:13 PM [facility] Chloride 101 98 - 107 mMol/L 07/14/2024 8:13 PM [facility] Carbon Dioxide 23 22 - 31 mMol/L 07/14/2024 8:13 PM [facility] Anion Gap 13 5 - 15 mMol/L 07/14/2024 8:13 PM [facility] Calcium 8.6 8.5 - 10.5 mg/dL 07/14/2024 8:13 PM [facility] Est Glomerular Filtration Rate - Male 122 mL/min/1. 73 m?? 07/14/2024 8:13 PM [facility] Comment: [...] DO CHEMISTRY ORDERABLES [facility] [place] [address] * (ABNORMAL) CBC (with Diff) (07/14/2024 7:39 [...] - 0.00 x10(3)/mc L 07/14/2024 7:50 PM [facility] Neutrophil % 67.3 % 07/14/2024 7:50 PM [facility] Neutrophil Absolute (ANC) - Automated 5.85 1.70 - 6.10 x10(3)/mc L 07/14/2024 7:50 PM EDT [facility] Lymph % 23.4 % 07/14/2024 7:50 PM [facility] Lymph Absolute 2.03 0.90 - 3.20 x10(3)/mc L 07/14/2024 7:50 PM [facility] Monocyte % 6.8 % 07/14/2024 7:50 PM [facility] Monocyte Absolute 0.59 0.30 - 0.90 x10(3)/mc L 07/14/2024 7:50 PM EDT [facility] Eos % 1.7 % 07/14/2024 7:50 PM [facility] Eos Absolute 0.15 0.00 - 0.40 x10(3)/mc L 07/14/2024 7:50 PM [facility] Basophil % 0.3 % 07/14/2024 7:50 PM [facility] Baso Absolute 0.03 0.00 - 0.10 x10(3)/mc L 07/14/2024 7:50 PM [facility] Immature Gran % 0.5 % 7:50 PM [facility] Immature Gran Absolute 0.04 0.00 - 0.04 x10(3)/mc L 07/14/2024 7:50 PM [facility] Blood VENOUS BLOOD SPECIMEN / Unknown Venipuncture / Unknown 07/14/2024 7:39 PM EDT 07/14/2024 7:46 PM EDT Arthur Patel HEMATOLOGY ORDERABLE S [facility] [place] [address] documented in this encounter Visit Diagnoses Diagnosis [...] 50 mL Mini-Bag Plus 3.375 g, Intravenous, ELECTRICAL INSTRUMENTATION TECHNICIAN TO O.R., 1 dose, On Wed07/14/24 at [...] over 4 Hours, Warning Vesicant/Irritant Medication Per tube mounter labeling, do not administer or Y-site with [...] over 4 Hours, Warning Vesicant/Irritant Medication Per tube mounter labeling, do not administer or Y-site with [...] (New Bag - Provider: Lindsey Haddad RN)0857 ([facility] Hold - Provider: Admin Adt - Reason: Transfer to a Procedural area)1149 (Hold - Provider: Cynthia Solorzano RN - Reason: See comment - Comment: not infusing on assessment, order to d/c.)1149 ([facility] Unhold - Provider: Cristiano Jones MD) [...] - Reason: Transfer to a Procedural area)1206 ([facility] Unhold - Provider: Admin Adt) bisacodyl EC [...] - Reason: Transfer to a Procedural area)1206 ([facility] Unhold - Provider: Admin Adt) BUPivacaine (pf) [...] scheduled bowel medications ordered. , Routine 0857 ([facility] Hold - Provider: Admin Adt - Reason: Transfer to a Procedural area)1206 ([facility] Unhold - Provider: Admin Adt) lidocaine (Xylocaine) 1% (10 mg/mL) injection 3 mg 3 mg (0.3 mL), Subcutaneous, ONCE PRN, 1 dose, Starting on Wed07/14/24 at 2208, Until Wed07/21/24 at 2209, for discomfort with PIV insertion, Routine 0857 ([facility] Hold - Provider: Admin Adt - Reason: Transfer to a Procedural area)1206 ([facility] Unhold - Provider: Admin Adt) magnesium [...] any scheduled bowel medications ordered., Routine 0857 ([facility] Hold - Provider: Admin Adt - Reason: Transfer to a Procedural area)1206 ([facility] Unhold - Provider: Admin Adt) melatonin tablet 3 mg 3 mg, Oral, NIGHTLY PRN, Starting on Wed07/14/24 at 2208, Until Wed07/21/24 at 2209, Sleep, Sleep, Routine 0857 ([facility] Hold - Provider: Admin Adt - Reason: Transfer to a Procedural area)1206 ([facility] Unhold - Provider: Admin Adt) midazolam [...] one in 30 minutes if ineffective. 0857 ([facility] Hold - Provider: Admin Adt - Reason: Transfer to a Procedural area)1206 ([facility] Unhold - Provider: Admin Adt) ondansetron [...] 45 minutes if ineffective. , Routine 0857 ([facility] Hold - Provider: Admin Adt - Reason: Transfer to a Procedural area)1206 ([facility] Unhold - Provider: Admin Adt) oxyCODONE [...] scheduled bowel medications ordered. , Routine 0857 ([facility] Hold - Provider: Admin Adt - Reason: Transfer to a Procedural area)1206 ([facility] Unhold - Provider: Admin Adt) prochlorperazine (Compazine) (5 mg/mL) injection 10 mg(Linked Group 6) 10 mg, Intravenous, EVERY 6 HOURS PRN, Starting on Wed07/14/24 at 2208, Until Wed07/21/24 at 2209, Nausea, Nausea/Vomiting, If multiple antiemetics are ordered, use ondansetron first. If ondansetron ineffective use prochlorperazine. Only give IV if unable to take PO, Routine 0857 ([facility] Hold - Provider: Admin Adt - Reason: Transfer to a Procedural area)1206 ([facility] Unhold - Provider: Admin Adt) prochlorperazine (Compazine) tablet 10 mg(Linked Group 6) 10 mg, Oral, EVERY 6 HOURS PRN, Starting on Wed07/14/24 at 2208, Until Wed07/21/24 at 2209, Nausea, Nausea/Vomiting, If multiple antiemetics are ordered, use ondansetron first. If ondansetron ineffective use prochlorperazine. PO Preferred. If patient unable to take PO, may give IV if ordered., Routine 0857 ([facility] Hold - Provider: Admin Adt - Reason: Transfer to a Procedural area)1206 ([facility] Unhold - Provider: Admin Adt) sodium chloride 0.9 % (flush) (BD PosiFlush Normal Saline 0.9) flush 5-20 mL 5-20 mL, Intravenous, EVERY 1 MIN PRN, Starting on Wed07/14/24 at 2208, Until Wed07/21/24 at 2209, flush, Flush pertains to all indwelling lines. Flush per protocol found in the job aid using the link provided on this medication record., Routine 0857 ([facility] Hold - Provider: Admin Adt - Reason: Transfer to a Procedural area)1206 ([facility] Unhold - Provider: Admin Adt) Linked [...] Routine documented in this encounter Care Teams Correction Officer [place] [facility] Relationship Specialty Start Date End Date None None PCP - General 05/27/24 09/17/24 documented as of this encounter
--- OUTSIDE RECORDS SUMMARY | 2024-10-31 17:08 | XMS_ITS | Encounter Summary ---
[place] [address] Care Team Providers Care Trimmer Press Clippings Name Role Phone None Primary Care Provider Unavailabl e Encounter Details Date Type Department Care Team (Late st Contact Info) Description 07/18/2024 5:26 PM EDT Anesthesia Event Main [place] [address] Jules Rivera MD [facility] [place] [address] Jonnathan Scott, [facility] [place] [address] Anesthesia Record Procedure Summary Procedure Name Responsible [...] other (see comments) (vertical yung drain site); [place] drain site 10/06/24 0900 by Liana Mccormack [...] drink = 0.6 oz pur e alcohol) [facility] Utilities Answer Date Recorded In the past 12 months has [employer], [employer], oil, or water [employer] threatened to shut off services in [...] living in a long-term (including now)? No 07/17/2024 DH IPV Inpatient [...] PM EST Office [place] [phone] Isabela Hayward, CREATIVE ART THERAPIST [facility] [place] [address] 11/10/2024 10:00 AM EST Office Visit [place] [phone] Dai Whitman APRN 11/21/2024 2:15 PM EST Office [place] [phone] Dayanara Grover MD [facility] [place] [address] documented as of this encounter Visit Diagnoses Not on filedocumented in this encounter Care Teams Trimmer [employer] Clippings Relationship Specialty Start Date End Date None None PCP - General 05/27/24 09/17/24 documented as of this encounter
--- OUTSIDE RECORDS SUMMARY | 2024-10-31 17:08 | XMS_ITS | Encounter Summary ---
Author Organization [facility] [place] [address] Care Team Providers Care Manager Community Outreach Name Role Phone None Primary Care Provider Unavailabl e Encounter Details Date Type Department Care Team (Late st Contact Info) Description 06/03/2024 Notes Only [place] [address] Christy Lim Social History Tobacco Use Types Packs/Day Years Used Date Smoking Tobacco: Every Day Cigarettes 1 25 Started: 12/28/1986; Last attempted to quit: 12/28/2011 Alcohol Use Standard Drinks/Week Comments No 0 (1 standard drink = 0.6 oz pur e alcohol) [facility] Utilities Answer Date Recorded In the past 12 months has [facility] [employer], gas, oil, or water [employer] threatened to shut off services in your [...] Christy Lim - 06/03/2024 2:07 PM EDT [facility] FOLLOW UP: Patient Type: Emergency Department Did the patient participate in scheduled follow up?: No Reason patient did not follow up?: Lost to follow up RC attempted to contact Pt at [phone] (M). Number is disconnected, unable to reach Pt. Services have ended. MARKO Zuniga ED Recovery Support Pager # [phone] documented in this encounter Plan of Treatment Upcoming Encounters Date Type Department Care Team (Late st Contact Info) Description 11/09/2024 1:30 PM EST Office Visit [place] [phone] Isabela Hayward APRN [facility] [address] 11/10/2024 10:00 AM EST Office Visit [place] [address] Dai Whitman APRN 11/21/2024 2:15 PM EST Office [place] [address] Dayanara Grover MD [facility] [place] [address] documented as of this encounter Visit Diagnoses Not on filedocumented in this encounter Care Teams Manager Community Outreach Relationship Specialty Start Date End Date None None PCP - General 05/27/24 09/17/24 documented as of this encounter
--- OUTSIDE RECORDS SUMMARY | 2024-10-31 17:08 | XMS_ITS | Encounter Summary ---
Author Organization [place] [id number] Care Team Providers Care Mash Tub Cooker Name Role Phone None Primary Care Provider Unavailabl e Reason for Visit * Reason Comments Hospital Transfer * Auth/Cert (Routine) Specialty Diagnoses / Procedures Referred By William t Referred To Contact Diagnoses Peripheral artery disease Ischemic foot Procedures EMERGENCY IPI Thony Garcia MD [facility] [place] [address] [facility] Referral ID Status Reason Start Date Expiration Date Visits Re quested Visits Authorized [id number] 1 1 Encounter Details Date Type Department Care Team (Late st Contact Info) Description 07/19/2024 8:45 AM EDT - 07/19/2024 10:21 AM [place] [id number] Thony Garcia MD [facility] [place] [address] AMPUTATION TOE, METATARSO-PHALANGEAL JOINT (WRVU 3.51) Social History Tobacco Use Types Packs/Day Years Used Date Smoking Tobacco: Every Day Cigarettes 1 25 Started: 12/28/1986; Last attempted to quit: 12/28/2011 Alcohol Use Standard Drinks/Week Comments No 0 (1 standard drink = 0.6 oz pur e alcohol) [facility] Utilities Answer Date Recorded In the [...] patient has been previously admitted to the [facility] Vascular Surgery service on 05/28 - 06/02 [...] tobacco/substance abuse, narcolepsy/cataplexy, who initially presented to [facility] ED with left foot wounds/cellulitis and concern for limb ischemia [facility]. Recent admit 05/2024 for short segment left popliteal occlusion; he was treated with a heparin drip and antibiotics for cellulitis with improvement. He was discharged on Xarelto 2.5mg BID, aspirin and short course of Augmentin with instructions to be seen in 1 mo [facility], which he did not show for the [...] of an occluded SVG-RPDA graft with a TUNG NUT GROWER of his right coronary artery. He has [...] 149 Dorsalis Pedis (Ankle) Artery 83 0.55 Motley-Biphasic Posterior Tibial (Ankle) Artery 87 0.57 Monophasic [...] Appointments and Orders Future Orders Complete By [employer] [facility] [employer] [EQ161 Custom] As directed Process Instructions: Scheduling Instructions: Comments: Geovanna Dixon Jr. [address] [facility] [address] [phone] (home) Telephone Information: Diagnosis: deconditioning with Unsteady gait Significant weakness, ataxia or gait abnormality Patient's: Hgt: Ht Readings from Last 1 Encounters: 07/14/24 : 177.8 cm (5' 10) Wgt: Wt Readings from Last 1 Encounters: 07/14/24 : 99.8 kg (220 lb) VENDOR: [employer] Ordering: Front wheel walker Deliver to [facility] room #: 448A Questions: Device [...] Blood thinner have been sent to your [facility] in [facility]. Anticoagulation: xarelto [...] For any problems or questions please call [phone] For issues on weeknights after 5pm and weekends please call [phone] and ask for the Vascular Fellow release of information specialist. Geovanna-for your diabetes! Most important thing is [...] APRN - 07/20/2024 10:13 AM EDT [facility] Interventional Radiology Post Angiography Instructions [...] call and ask for the vice president payment release of information specialist. OR Vascular Department at until 4:45pm. After 4:45pm call and ask for the Vascular resident release of information specialist. 10. If you are a diabetic and [...] Blood thinner have been sent to your [facility] in [facility]. Anticoagulation: xarelto [...] For any problems or questions please call [phone] For issues on weeknights after 5pm and weekends please call [phone] and ask for the Vascular Fellow release of information specialist. Geovanna-for your diabetes! Most important thing is [...] HCP Completion of AVS * Thuy Jiang, TALENT ASSOCIATE - 07/21/2024 12:26 PM EDT Images from [...] Carb Controlled 60/60/75g Monitoring: BG Q4 Discharge Planning/FPC diabetes care: Medications - Outpatient treatment regimen [...] 3.51) performed by Thony Garcia MD at [facility] MAIN OR PRO CABG, ARTERY-VEIN, SINGLE 01/04/2012 @CABG, VENOUS & ARTERIAL GRAFT;SINGLE VEIN GRAFT performed by INNA TOVAR at [facility] MAIN OR PRO ENDOSCOPY W/VIDEO-ASST VEIN HARVEST, CABG 01/04/2012 ENDOSCOPIC HARVEST VEIN(S) FOR CABG performed by INNA TOVAR at [facility] MAIN OR Active Non-Hospital Problems Diagnosis [...] Anne PT, Doctor of Physical Therapy Pager: [phone] Physical Therapy Inpatient Rehabilitation Department * Carlos [...] Anne PT, Doctor of Physical Therapy Pager: [phone] Physical Therapy Inpatient Rehabilitation Department * Hailey Nick RN - 07/20/2024 10:00 AM EDT ANGIO NURSING DATABASE Name: Geovanna Dixon JrFlorencio Date of : 1975 AGE: 49 y.o. Address: [address] [place] [address] Phone: [phone] (home) Mobile: Telephone Information: Referring Provider: Herminio [...] .Follow Up Diabetes Consult Patient Interview Saw Geoavnna. He and his mother are working on [...] Carb Controlled 60/60/75g Monitoring: BG Q4 Discharge Planning/FPC diabetes care: Medications - Outpatient treatment regimen [...] vial 1-11 Units 1-11 Units Subcutaneous Q4H [facility] Cristiano Jones MD 5 Units [...] Q6H PRN Cristiano Jones MD No current [facility]-ordered outpatient medications on file. Allergies No [...] ASA II Rubio Grimaldo MD Vascular Surgery [facility] Vascular Surgery Floor Pager: [phone] Vascular Surgery Consult Pager: [phone] * Rubio Grimaldo MD - 07/20/2024 8:00 [...] patient has been previously admitted to the [facility] Vascular Surgery service on 05/28 - 06/02 [...] Procedure Component Value - Date/Time Anaerobic Culture [[id number]] Collected: 07/19/24950 Lab Status: Preliminary result Specimen: Bone from Toe(s), Left Foot Updated: 07/20/24 1420 Anaerobic Culture No anaerobic organisms isolated to date Fungus culture [[id number]] Collected: 07/19/24950 Lab Status: Preliminary result Specimen: Bone from Toe(s), Left Foot Updated: 07/20/24 0931 Fungus Culture No fungus isolated to date Bone Culture [[id number]] Collected: 07/19/24950 Lab Status: Preliminary result Specimen: Bone from Toe(s), Left Foot Updated: 07/20/24 0650 Bone Culture No growth to date Gram Stain No neutrophils seen No microorganisms seen MRSA PCR Screen [[id number]] (Normal) Collected: 07/16/24 1407 Lab Status: Final result Specimen: Swab from Nares Updated: 07/17/24 1804 MRSA PCR Not Detected Narrative: This test was performed using the Xpert MRSA NxG test kit and is run on the [employer] GeneXpert Dx System. This test is cleared by the U.S. Food and Drug Administration for clinical use and its performance characteristics have been verified by the [facility] [employer] [facility] at [facility]. This test was performed using the Xpert MRSA NxG test kit and is run on the [employer] GeneXpert Dx System. This test is cleared by the U.S. Food and Drug Administration for clinical use and its performance characteristics have been verified by the [facility] [employer] [facility] [employer] [facility] at [facility]. New Studies: ABIs 07/17/24: Findings: Right Pressure (mm Hg) ELEN Waveform TBI Brachial Artery 152 Dorsalis Pedis (Ankle) Artery 167 1.10 Triphasic Posterior Tibial (Ankle) Artery 168 1.11 Triphasic Great Toe 141 0.93 Left Pressure (mm Hg) ELEN Waveform TBI Brachial Artery 149 Dorsalis Pedis (Ankle) Artery 83 0.55 Motley-Biphasic Posterior Tibial (Ankle) Artery 87 0.57 Monophasic [...] who have questions please contact the health landcare officer that requested your imaging first. Electronically signed by: Geovanna Ray MD, [facility] ([phone]), at 07/14/2024 10:[address] Angiogram Aortic [...] 2.6 cm vessel length at and just pgpfr-kzy-jxhz, similar to prior. Anterior tibial artery: No [...] who have questions please contact the health landcare officer that requested your imaging first. Electronically signed by: Geovanna Ray MD, [facility] ([phone]), at 07/15/2024 1:13 AM Assessment & Plan: [...] status: Full Rubio Grimaldo MD 07/20/2024 Pager: [phone] * Fallon Oliva MD - 07/19/2024 3:21 [...] as appropriate. Thanks. Oli Call, ELDON Beeper# [phone] * María Carranza APRN - 07/19/2024 9:54 [...] patient has been previously admitted to the [facility] Vascular Surgery service on 05/28 - 06/02 [...] Component Value - Date/Time MRSA PCR Screen [[id number]] (Normal) Collected: 07/16/24 1407 Lab Status: Final result Specimen: Swab from Nares Updated: 07/17/241803 MRSA PCR Not Detected Narrative: This test was performed using the Xpert MRSA NxG test kit and is run on the Lum[employer] GeneXpert Dx System. This test is cleared by the U.S. Food and Drug Administration for clinical use and its performance characteristics have been verified by the [facility] at [facility]. This test was performed using the Xpert MRSA NxG test kit and is run on the [employer] GeneXpert Dx System. This test is cleared by the U.S. Food and Drug Administration for clinical use and its performance characteristics have been verified by the [facility] [employer] [facility] at [facility]. New Studies: ABIs 07/17/24: Findings: Right Pressure (mm Hg) ELEN Waveform TBI Brachial Artery 152 Dorsalis Pedis (Ankle) Artery 167 1.10 Triphasic Posterior Tibial (Ankle) Artery 168 1.11 Triphasic Great Toe 141 0.93 Left Pressure (mm Hg) ELEN Waveform TBI Brachial Artery 149 Dorsalis Pedis (Ankle) Artery 83 0.55 Motley-Biphasic Posterior Tibial (Ankle) Artery 87 0.57 Monophasic [...] who have questions please contact the health landcare officer that requested your imaging first. Electronically signed by: Geovanna Ray MD, [facility] ([phone]), at 07/14/2024 10:[address] Angiogram Aortic [...] 2.6 cm vessel length at and just ztdrn-lmo-[id number], similar to prior. Anterior tibial artery: No [...] who have questions please contact the health landcare officer that requested your imaging first. Electronically signed by: Geovanna Ray MD, [facility] ([phone]), at 07/15/2024 1:13 AM Assessment & Plan: [...] status: Full María Carranza APRN 07/19/2024 Pager: [phone] * Oli Call, PT - 07/18/2024 12:53 [...] 13 ; functional mobility OLI CALL, PT Pager:[phone] Physical Therapy Inpatient Rehabilitation Department * Fallon [...] patient has been previously admitted to the [facility] Vascular Surgery service on 05/28 - 06/02 [...] 149 Dorsalis Pedis (Ankle) Artery 83 0.55 Motley-Biphasic Posterior Tibial (Ankle) Artery 87 0.57 Monophasic [...] who have questions please contact the health landcare officer that requested your imaging first. Electronically signed by: Geovanna Ray MD, [facility] ([phone]), at 07/14/2024 10:[address] Angiogram Aortic [...] 2.6 cm vessel length at and just llmlz-ctf-mgrf, similar to prior. Anterior tibial artery: No [...] who have questions please contact the health landcare officer that requested your imaging first. Electronically signed by: Geovanna Ray MD, [facility] ([phone]), at 07/15/2024 1:13 AM Assessment & Plan: [...] 07/18/2024 Vascular Surgery [phone] * Lakeisha Berry, TALENT ASSOCIATE - 07/18/2024 10:00 AM EDT Glucose Management Team Inpatient Progress Note HPI Geovanna Dixon Jr. is a 49 y.o. 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 Original consult completed: 07/15 by [...] Carb Controlled 60/60/75g Monitoring: BG Q4 Discharge Planning/FPC diabetes care: Medications - Outpatient treatment regimen [...] the consulting service. Lakeisha Berry APRN, DNP, -[facility] Inpatient Diabetes Management Team Team pager #[phone] (DRAFT) Diabetes Discharge Instructions & Recommendations Check [...] VEIN GRAFT performed by INNA TOVAR at [facility] MAIN OR PRO ENDOSCOPY W/VIDEO-ASST VEIN HARVEST, CABG 01/04/2012 ENDOSCOPIC HARVEST VEIN(S) FOR CABG performed by INNA TOVAR at [facility] MAIN OR Social History: Home set-up: [...] Billing Code: evaluation OLI CALL, PT Pager: [phone] Physical Therapy Inpatient Rehabilitation Department * Lakeisha Berry, TALENT ASSOCIATE - 07/17/2024 2:00 PM EDT Glucose Management Team Inpatient Progress Note HPI Geovanna Dixon Jr. is a 49 y.o. male from [place], [place], with PMH significant for T2DM IDDM [...] Carb Controlled 60/60/75g Monitoring: BG Q4 Discharge Planning/FPC diabetes care: Medications - Outpatient treatment regimen [...] the consulting service. Lakeisha Berry APRN, DNP, -[facility] Inpatient Diabetes Management Team Team pager #[phone] * Hermila White APRN - 07/17/2024 7:45 [...] patient has been previously admitted to the [facility] Vascular Surgery service on 05/28 - 06/02 [...] TID insulin lispro 1-6 Units Subcutaneous Q4H [facility] insulin glargine (Lantus;Semglee) (100 unit/mL) [...] who have questions please contact the health landcare officer that requested your imaging first. Electronically signed by: Geovanna Ray MD, [facility] ([phone]), at 07/14/2024 10:[address] Angiogram Aortic [...] 2.6 cm vessel length at and just bdouk-gty-odmo, similar to prior. Anterior tibial artery: No [...] who have questions please contact the health landcare officer that requested your imaging first. 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 Electronically signed by: Geovanna Ray MD, [facility] ([phone]), at 07/14/2024 10:[address] Angiogram Aortic [...] 2.6 cm vessel length at and just bkceu-llg-kidq, similar to prior. Anterior tibial artery: No [...] who have questions please contact the health landcare officer that requested your imaging first. 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 [facility] [place] [facility] [place] primary team (vascular surgery). Dayanara Grover PGY-5 [facility] Endocrinology Associated attestation - Karen Reno MD [...] patient has been previously admitted to the [facility] Vascular Surgery service on 05/28 - 06/02 [...] or shortness of breath. 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 Electronically signed by: Geovanna Ray MD, [facility] ([phone]), at 07/14/2024 10:[address] Angiogram Aortic [...] 2.6 cm vessel length at and just tiyrn-lva-rapy, similar to prior. Anterior tibial artery: No [...] who have questions please contact the health landcare officer that requested your imaging first. 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 Vascular Surgery H&P Note Patient Name: Geovanna Dixon Jr. MR#: [id number] : 1975 Admission Date: 07/14/2024 History of [...] patient has been previously admitted to the [facility] Vascular Surgery service on 05/28 - 06/02 [...] VEIN GRAFT performed by INNA TOVAR at [facility] MAIN OR PRO ENDOSCOPY W/VIDEO-ASST VEIN HARVEST, CABG 01/04/2012 ENDOSCOPIC HARVEST VEIN(S) FOR CABG performed by INNA TOVAR at [facility] MAIN OR Home Medications: Current Outpatient [...] LACTATEVEN 1.1 No results for input(s): PHART, AFI6VFL, PO2ART, XPH0EAL in the last 72 hours. Studies: No [...] - 07/14/2024 4:47 PM EDT Sending Facility: [facility] Reason for Transfer: Vascular consult Report: Hx ischemic ulcer and DM T2. Has trouble getting to appointments at [facility] due to long drive. Decreased cap refill L left with streaking and decreased pulses. Lactate 3.2. Glucose 630. Given 10u of regular insulin, 500ml NS, 2g Cefepime, 1.5 vanc. 20g L AC. Vital Signs: Pulse: 97 B/P: 138/94 Resp: RA SPO2: 97% O2 LPM: RA GCS: 15 BGL: Temp: 36.8c Transporting Service: [facility] Time of Departure: 1650 ETA: 1800 documented [...] MEDICARE Payor: [employer]LL[employer] MANAGED MEDICARE / Plan: [employer] MANAGED MEDICARE PPO / Product Type: *No Product type* / Secondary Insurance: N/A Prescription Coverage: Yes This plan was formulated with input from patient and team. All are in agreement with plan. IMM on shared list for RS to deliver. Phu Kennedy [employer] FINISHER marketing content specialist [phone] * Plan of Care - Carlos Enrique [...] patient has been previously admitted to the [facility] Vascular Surgery service on 05/28 - 06/02 [...] No Patient is insured through: Primary Insurance: [employer] MANAGED MEDICARE Payor: WELL[employer] MANAGED MEDICARE / Plan: [employer] MANAGED MEDICARE PPO / Product Type: *No [...] Jones MD - 07/19/2024 10:11 AM EDT [facility] Operative Note Patient Name: Geovanna Dixon Jr. : [id number] MR#: [id number] Case Date: 07/19/2024 Surgeon: Surgeons and Role: [...] utilized * Consult Note - [facility] - 07/18/2024 10:46 AM EDT The pharmacist-managed [...] have. Alternately, during off-hours you may call [phone] to contact a pharmacist. Electronically signed by [facility] at 07/18/2024 10:46 AM EDT * Plan of Care - Cecilia Cm [...] patient has been previously admitted to the [facility] Vascular Surgery serviceon 05/28 - 06/02 of [...] VEIN GRAFT performed by INNA TOVAR at [facility] MAIN OR PRO ENDOSCOPY W/VIDEO-ASST VEIN HARVEST, CABG 01/04/2012 ENDOSCOPIC HARVEST VEIN(S) FOR CABG performed by INNA TOVAR at [facility] MAIN OR Active Non-Hospital Problems Diagnosis [...] only Total Minutes, Occupational Therapy: 23 (evaluation ([phone])) OT Evaluation Code Rationale: Diagnosis & Pertinent Co-Morbidities affecting Plan of Care: see PMHx Occupational Profile & Client History: Brief Expanded Extensive X Assessment of Occupational Performance: 1-3 performance deficits X 3-5 performance deficits 5 + performance deficits Clinical Decision Making: Low Moderate High X Clinical decision making of low complexity using standardized patient assessment instrument and measurable assessment of functional outcome. Pager: [phone] Camille Holloway OT 07/17/2024 Occupational Therapy Rehabilitation [...] surrogate would be surrogate decision maker per [place] surrogate decision making law. (Only good for 180 days) Any patient receiving care in [place] must abide by [place] law. The hierarchy for surrogate decision making [...] (i) The agent with financial power of collections attorney or a conservator appointed in accordance [...] In the past 12 months has the [employer], oil, or water [employer] threatened to shut off services in your [...] DME: none Home Address confirmed as: [address], [place], [place] Social & Family Supports: All names [...] points: Addiction likely Other Pertinent/Service Specific Information: cost recovery technician to see patient. Hx of cocaine use Health/Prescription Coverage: Primary nsurance: [employer] MANAGED MEDICARE Payor: [employer] MEDICARE / Plan: WELL[employer] MANAGED MEDICARE PPO / Product Type: *No Product type* / Secondary Insurance: N/A ONLY if patient has Medicare A&B - Does this patient have secondary insurance?: No ; Why not?: Managed Medicare Prescription Coverage: Yes Preferred Pharmacy: [facility] - [place], [place] - [address] [facility] [address] [facility] [address] [facility] - [place], [place] - [address] [facility] [address] [place] Status: Patient is a : No Primary [...] dry andstable, no open areas, no drainage. [place] with povidone- iodine daily and leave open [...] or the wound care team on pager [phone] with skin and wound care concerns or questions. * Consult Note - Cynthia Carreon - 07/17/2024 11:00 AM EDT PT sleeping RC will return. * Consult Note - Angel Oliva MD - 07/17/2024 8:52 AM EDT Images from the original note were not included. [facility] Cardiovascular Medicine [place] [phone] CARDIOLOGY CONSULT NOTE Date of Consultation: 07/17/2024 [...] tobacco/substance abuse, narcolepsy/cataplexy, who initially presented to [facility] ED with left foot wounds/cellulitis and concern for limb ischemia who was transferred to [facility] for vascular surgery assessment. Recent admit 05/2024 [...] patient has been previously admitted to the [facility] Vascular Surgery service on 05/28 - 06/02 [...] 4 Wing D at [facility] ED to Hosp-Admission (Discharged) from 05/28/2024 in Surgical Unit Level 4 Wing D at [facility] Weight 99.8 kg (220 lb) 1 [...] tobacco/substance abuse, narcolepsy/cataplexy, who initially presented to [facility] ED with left foot wounds/cellulitis and concern for limb ischemia [facility]. Recent admit 05/2024 for short segment left popliteal occlusion; he was treated with a heparin drip and antibiotics for cellulitis with improvement. He was discharged on Xarelto 2.5mg BID, aspirin and short course of Augmentin with instructions to be seen in 1 mo [facility], which he did not show for the [...] of an occluded SVG-RPDA graft with a TUNG NUT GROWER of his right coronary artery. He has [...] questions or concerns arise. Angel Oliva MD, [facility] Staff Him Manager * Plan of Care - Lauren [...] a review of care home diabetes care. Diabetes History: Geovanna Dixon Jr. [...] he will need outpatient follow up at [facility] endocrine clinic. [facility] [place] [facility] [...] primary team (vascular surgery). Dayanara Grover PGY-5 [facility] Endocrinology Associated attestation - Karen Reno MD [...] seen eye doctor in years, his triglycerides [id number] was very high, needs recheck and aggressive [...] PM EST Office Visit [place] [phone] Isabela Hayward, TALENT ASSOCIATE [facility] [place] [address] 11/10/2024 10:00 AM EST Office Visit [place] [phone] Dai Whitman APRN 11/21/2024 2:15 PM EST Office [place] [phone] Dayanara Grover MD [facility] [place] [address] documented as of this encounter Procedures Procedure [...] 49 AM EDT Amputation Toe, Mt-P Jt ([id number]) 07/19/2024 8:57 AM EDT peripheral artery disease [...] * POC, GLUCOSE (07/21/2024 3:43 PM EDT) [facility] Glucometer, POC 111 65 - 199 mg/dL 07/21/2024 3:44 PM EDT [facility] Comment:Supplemental ranges: <140 mg/dL before meals <180 mg/dL all other times of the day. Blood CAPILLARY BLOOD / Unknown 07/21/2024 3:43 PM EDT 07/21/2024 3:44 PM EDT Thony Garcia MD POINT OF CARE TEST O GILDA Performing Organization Address [facility] Co de Phone Number [facility] [place] [address] * (ABNORMAL) POC, GLUCOSE (07/21/2024 12:18 PM EDT) Glucometer, POC 247(H) 65 - 199 mg/dL 07/21/2024 12:20 PM EDT [facility] Comment:Supplemental ranges: <140 mg/dL before meals <180 mg/dL all other times of the day. Blood CAPILLARY BLOOD / Unknown 07/21/2024 12:18 PM EDT 07/21/2024 12:20 PM EDT Thony Garcia MD POINT OF CARE TEST O GILDA Performing Organization Address [facility] Co de Phone Number [facility] [place] [address] * POC, GLUCOSE (07/21/2024 8:37 AM EDT) Glucometer, POC 163 65 - 199 mg/dL 07/21/2024 8:38 AM EDT [facility] Comment:Supplemental ranges: <140 mg/dL before meals <180 mg/dL all other times of the day. Blood CAPILLARY BLOOD / Unknown 07/21/2024 8:37 AM EDT 07/21/2024 8:38 AM EDT Thony Garcia MD POINT OF CARE TEST O GILDA Performing Organization Address City/[facility] Co de Phone Number [facility] [place] [address] * (ABNORMAL) Basic Metabolic Panel (07/21/2024 5:55 AM EDT) Glucose 172 65 - 199 mg/dL 07/21/2024 6:45 AM [facility] Comment:Glucose Concentratio n >=200 mg/dL plus symptoms is consistent with Diabetes Mellitus. Blood Urea Nitrogen 12 10 - 20 mg/dL 07/21/2024 6:45 AM [facility] Creatinine 0.55(L) 0.80 - 1.50 mg/dL 07/21/2024 6:45 AM [facility] Sodium 138 135 - 145 mMol/L 07/21/2024 6:45 AM [facility] Potassium 4.1 3.5 - 5.0 mMol/L 07/21/2024 6:45 AM [facility] Chloride 103 98 - 107 mMol/L 07/21/2024 6:45 AM [facility] Carbon Dioxide 23 22 - 31 mMol/L 07/21/2024 6:45 AM [facility] Anion Gap 12 5 - 15 mMol/L 07/21/2024 6:45 AM [facility] Calcium 9.4 8.5 - 10.5 mg/dL 07/21/2024 6:45 AM [facility] Est Glomerular Filtration Rate - Male 121 mL/min/1. 73 m?? 07/21/2024 6:45 AM [facility] Comment: [...] AM EDT Thony Garcia MD CHEMISTRY ORDERABLES [facility] [place] [address] * (ABNORMAL) CBC (with Diff) (07/21/2024 5:55 AM EDT) White Blood Cell 10.11(H) 4.00 - 9.50 x10(3)/mc L 07/21/2024 6:17 AM EDT [facility] Red Blood Cell 4.52(L) 4.58 - 5.54 x10(6)/mc L 07/21/2024 6:17 AM EDT [facility] Hemoglobin 13.2(L) 13.7 - 16.5 g/dL 07/21/2024 6:17 AM EDT [facility] Hematocrit 39.7(L) 40.5 - 48.5 % 07/21/2024 6:17 AM EDT [facility] Mean Cell Volume 87.8 82.9 - 93.1 fL 07/21/2024 6:17 AM EDT [facility] Mean Cell Hemoglobin 29.2 27.5 - 32.1 pg 07/21/2024 6:17 AM EDT [facility] Mean Cell Hemoglobin Concentration 33.2 32.0 - 35.7 g/dL 07/21/2024 6:17 AM EDT [facility] Platelet 405(H) 145 - 357 x10(3)/mc L 07/21/2024 6:17 AM EDT [facility] Mean Platelet Volume 9.3 7.6 - 12.9 fL 07/21/2024 6:17 AM EDT [facility] RDW Standard Deviation 42.2 36.0 - 45.0 fL 07/21/2024 6:17 AM EDT [facility] RDW coefficient of variation 13.2 11.4 - 13.8 % 07/21/2024 6:17 AM EDT [facility] NRBC% auto 0.0 % 07/21/2024 [...] Eos % 1.6 % 07/21/2024 6:17 AM [facility] Eos Absolute 0.16 0.00 - 0.40 x10(3)/mc L 07/21/2024 6:17 AM [facility] Basophil % 0.7 % 07/21/2024 6:17 AM [facility] Baso Absolute 0.07 0.00 - 0.10 x10(3)/mc L 07/21/2024 6:17 AM [facility] Immature Gran % 0.5 % 6:17 AM [facility] Immature Gran Absolute 0.05(H) 0.00 - 0.04 x10(3)/mc L 07/21/2024 6:17 AM [facility] Blood VENOUS BLOOD SPECIMEN / Unknown IP Care Team Draw / Unknown 07/21/2024 5:55 AM EDT 07/21/2024 6:13 AM EDT Thony Garcia MD HEMATOLOGY ORDERABLE S Performing Organization Address City/[facility]/ZIP Co de Phone Number [facility] [place] [address] * Phosphorus (07/21/2024 5:55 AM EDT) Phosphorus 3.9 2.5 - 4.5 mg/dL 07/21/2024 6:45 AM EDT [facility] Blood VENOUS BLOOD SPECIMEN / Unknown IP Care Team Draw / Unknown 07/21/2024 5:55 AM EDT 07/21/2024 6:13 AM EDT Thony Gacria MD CHEMISTRY ORDERABLES Performing Organization Address [facility] Co de Phone Number [facility] [place] [address] * Magnesium (07/21/2024 5:55 AM EDT) Magnesium 0.82 0.69 - 1.07 mMol/L 07/21/2024 6:45 AM EDT [facility] Blood VENOUS BLOOD SPECIMEN / Unknown IP Care Team Draw / Unknown 07/21/2024 5:55 AM EDT 07/21/2024 6:13 AM EDT Thony Garcia MD CHEMISTRY ORDERABLES Performing Organization Address City/[facility] Co de Phone Number [facility] [place] [address] * POC, GLUCOSE (07/21/2024 3:57 AM EDT) Glucometer, POC 163 65 - 199 mg/dL 07/21/2024 4:01 AM EDT [facility] Comment:Supplemental ranges: <140 mg/dL before meals <180 mg/dL all other times of the day. Blood CAPILLARY BLOOD / Unknown 07/21/2024 3:57 AM EDT 07/21/2024 4:01 AM EDT Thony Garcia MD POINT OF CARE TEST O RDTYESHA Performing Organization Address [facility] Co de Phone Number [facility] [place] [address] * POC, GLUCOSE (07/20/2024 11:54 PM EDT) Glucometer, POC 190 65 - 199 mg/dL 07/20/2024 11:58 PM EDT [facility] Comment:Supplemental ranges: <140 mg/dL before meals <180 mg/dL all other times of the day. Blood CAPILLARY BLOOD / Unknown 07/20/2024 11:54 PM EDT 07/20/2024 11:58 PM EDT Thony Garcia MD POINT OF CARE TEST O GILDA Performing Organization Address [facility] Co de Phone Number [facility] [place] [address] * POC, GLUCOSE (07/20/2024 8:17 PM EDT) Glucometer, POC 166 65 - 199 mg/dL 07/20/2024 8:17 PM EDT [facility] Comment:Supplemental ranges: <140 mg/dL before meals <180 mg/dL all other times of the day. Blood CAPILLARY BLOOD / Unknown 07/20/2024 8:17 PM EDT 07/20/2024 8:18 PM EDT Thony Garcia MD POINT OF CARE TEST O RDERAHERNANDEZ Performing Organization Address City/[facility] Co de Phone Number [facility] [place] [address] * (ABNORMAL) POC, GLUCOSE (07/20/2024 3:51 PM EDT) Glucometer, POC 218(H) 65 - 199 mg/dL 07/20/2024 3:51 PM EDT [facility] Comment:Supplemental ranges: <140 mg/dL before meals <180 mg/dL all other times of the day. Blood CAPILLARY BLOOD / Unknown 07/20/2024 3:51 PM EDT 07/20/2024 3:51 PM EDT Thony Garcia MD POINT OF CARE TEST O RDERABLES Performing Organization Address [facility] Co de Phone Number [facility] [place] [address] * POC, GLUCOSE (07/20/2024 10:55 AM EDT) Glucometer, POC 96 65 - 199 mg/dL 07/20/2024 10:56 AM EDT [facility] Comment:Supplemental ranges: <140 mg/dL before meals <180 mg/dL all other times of the day. Blood CAPILLARY BLOOD / Unknown 07/20/2024 10:55 AM EDT 07/20/2024 10:56 AM EDT Thony Garcia MD POINT OF CARE TEST O RDERAHERNANDEZ Performing Organization Address [facility] de Phone Number [facility] [place] [address] * Vein Map Arm, Bilateral (07/20/2024 10:48 AM EDT) VB Text Report Department: Vascular Surgery Lab Patient: [id number] (ZACK GEOVANNA) CPT: 03612 Referring Physician: THONY GARCIA ?? Indications: Patient [...] Garcia MD VASCULAR ORDERABLES Performing Organization Address City/State/[facility] Co de Phone Number [facility] [...] patient has been previously admitted to the [facility] Vascular Surgery service on 05/28 - 06/02 [...] the sedation RN. Anabel Finney MD, MPH [facility] Vascular Surgery ? Thony Garcia MD IMG IR ORDERABLES * POC, GLUCOSE (07/20/2024 8:12 AM EDT) [facility] Glucometer, POC 119 65 - 199 mg/dL 07/20/2024 8:12 AM EDT [facility] Comment:Supplemental ranges: <140 mg/dL before meals <180 mg/dL all other times of the day. Blood CAPILLARY BLOOD / Unknown 07/20/2024 8:12 AM EDT 07/20/2024 8:12 AM EDT Thony Garcia MD POINT OF CARE TEST O RDERABLES [facility] [place] [address] * (ABNORMAL) CBC (with Diff) (07/20/2024 3:42 AM EDT) [facility] White Blood Cell 16.61(H) 4.00 - 9.50 x10(3)/mc L 07/20/2024 4:23 AM [facility] Red Blood Cell 4.44(L) 4.58 - 5.54 x10(6)/mc L 07/20/2024 4:23 AM [facility] Hemoglobin 13.0(L) 13.7 - 16.5 g/dL 07/20/2024 4:23 AM [facility] Hematocrit 39.2(L) 40.5 - 48.5 % 07/20/2024 4:23 AM [facility] Mean Cell Volume 88.3 82.9 - 93.1 fL 07/20/2024 4:23 AM [facility] Mean Cell Hemoglobin 29.3 27.5 - 32.1 pg 07/20/2024 4:23 AM [facility] [...] 6.10 x10(3)/mc L 07/20/2024 4:23 AM EDT [facility] Lymph % 16.5 % 07/20/2024 4:23 AM EDT [facility] Lymph Absolute 2.74 0.90 - 3.20 x10(3)/mc L 07/20/2024 4:23 AM EDT [facility] Monocyte % 7.5 % 07/20/2024 4:23 AM EDT [facility] Monocyte Absolute 1.25(H) 0.30 - 0.90 x10(3)/mc L 07/20/2024 4:23 AM EDT [facility] Eos % 0.8 % 07/20/2024 4:23 AM EDT [facility] Eos Absolute 0.14 0.00 - 0.40 x10(3)/mc L 07/20/2024 4:23 AM EDT [facility] Basophil % 0.4 % 07/20/2024 4:23 AM EDT [facility] Baso Absolute 0.06 0.00 - 0.10 x10(3)/mc L 07/20/2024 4:23 AM EDT [facility] Immature Gran % 0.6 % 4:23 AM EDT [facility] Immature Gran Absolute 0.10(H) 0.00 - 0.04 x10(3)/mc L 07/20/2024 4:23 AM EDT [facility] Blood VENOUS BLOOD SPECIMEN / Unknown IP Care Team Draw / Unknown 07/20/2024 3:42 AM EDT 07/20/2024 4:09 AM EDT Thony Garcia MD HEMATOLOGY ORDERABLE S [facility] [place] [address] * (ABNORMAL) POC, GLUCOSE (07/20/2024 3:41 AM EDT) Glucometer, POC 204(H) 65 - 199 mg/dL 07/20/2024 3:41 AM EDT [facility] Comment:Supplemental ranges: <140 mg/dL before meals <180 mg/dL all other times of the day. Blood CAPILLARY BLOOD / Unknown 07/20/2024 3:41 AM EDT 07/20/2024 3:41 AM EDT Thony Garcia MD POINT OF CARE TEST O RDERABLES [facility] [place] [address] * (ABNORMAL) Basic Metabolic Panel (07/20/2024 3:41 AM EDT) Glucose 209(H) 65 - 199 mg/dL 07/20/2024 5:00 AM T [facility] Comment:Glucose Concentratio n [...] - 10.5 mg/dL 07/20/2024 5:00 AM EDT [facility] Est Glomerular Filtration Rate - Male 122 mL/min/1. 73 m?? 07/20/2024 5:00 AM EDT [facility] Comment: This patient's [...] AM EDT Thony Garcia MD CHEMISTRY ORDERABLES [facility] [place] [address] * Phosphorus (07/20/2024 3:41 AM EDT) Phosphorus 3.4 2.5 - 4.5 mg/dL 07/20/2024 4:40 AM EDT [facility] Blood VENOUS BLOOD SPECIMEN / Unknown IP Care Team Draw / Unknown 07/20/2024 3:41 AM EDT 07/20/2024 4:09 AM EDT Thony Garcia MD CHEMISTRY ORDERABLES [facility] [place] [address] * Magnesium (07/20/2024 3:41 AM EDT) Magnesium 0.90 0.69 - 1.07 mMol/L 07/20/2024 4:40 AM EDT [facility] Blood VENOUS BLOOD SPECIMEN / Unknown IP Care Team Draw / Unknown 07/20/2024 3:41 AM EDT 07/20/2024 4:09 AM EDT Thony Garcia MD CHEMISTRY ORDERABLES Performing Organization Address [facility]/ZIP Co de Phone Number [facility] [place] [address] * (ABNORMAL) POC, GLUCOSE (07/20/2024 12:56 AM EDT) Glucometer, POC 342(H) 65 - 199 mg/dL 07/20/2024 12:58 AM EDT [facility] Comment:Supplemental ranges: <140 mg/dL before meals <180 mg/dL all other times of the day. Blood CAPILLARY BLOOD / Unknown 07/20/2024 12:56 AM EDT 07/20/2024 12:58 AM EDT Thony Garcia MD POINT OF CARE TEST O RDERABLES Performing Organization Address [facility]/ZIP Co de Phone Number [facility] [place] [address] * (ABNORMAL) POC, GLUCOSE (07/19/2024 11:04 PM EDT) Glucometer, POC 296(H) 65 - 199 mg/dL 07/19/2024 11:05 PM EDT [facility] Comment:Supplemental ranges: <140 mg/dL before meals <180 mg/dL all other times of the day. Blood CAPILLARY BLOOD / Unknown 07/19/2024 11:04 PM EDT 07/19/2024 11:05 PM EDT Thony Garcia MD POINT OF CARE TEST O RDTYESHA [facility] [place] [address] * (ABNORMAL) POC, GLUCOSE (07/19/2024 7:38 PM EDT) Glucometer, POC 251(H) 65 - 199 mg/dL 07/19/2024 7:39 PM EDT [facility] Comment:Supplemental ranges: <140 mg/dL before meals <180 mg/dL all other times of the day. Blood CAPILLARY BLOOD / Unknown 07/19/2024 7:38 PM EDT 07/19/2024 7:39 PM EDT Thony Garcia MD POINT OF CARE TEST O GILDA [facility] [place] [address] * POC, GLUCOSE (07/19/2024 4:48 PM EDT) Glucometer, POC 171 65 - 199 mg/dL 07/19/2024 4:49 PM EDT [facility] Comment:Supplemental ranges: <140 mg/dL before meals <180 mg/dL all other times of the day. Blood CAPILLARY BLOOD / Unknown 07/19/2024 4:48 PM EDT 07/19/2024 4:49 PM EDT Thony Garcia MD POINT OF CARE TEST O GILDA Performing Organization Address [facility] Co de Phone Number [facility] [place] [address] * POC, GLUCOSE (07/19/2024 12:21 PM EDT) Glucometer, POC 143 65 - 199 mg/dL 07/19/2024 12:22 PM EDT [facility] Comment:Supplemental ranges: <140 mg/dL before meals <180 mg/dL all other times of the day. Blood CAPILLARY BLOOD / Unknown 07/19/2024 12:21 PM EDT 07/19/2024 12:22 PM EDT Thony Garcia MD POINT OF CARE TEST O GILDA [facility] [place] [address] * POC, GLUCOSE (07/19/2024 11:24 AM EDT) Glucometer, POC 111 65 - 199 mg/dL 07/19/2024 11:24 AM EDT [facility] Comment:Supplemental ranges: <140 mg/dL before meals <180 mg/dL all other times of the day. Blood CAPILLARY BLOOD / Unknown 07/19/2024 11:24 AM EDT 07/19/2024 11:24 AM EDT Thony Garcia MD POINT OF CARE TEST O RDERABLES Performing Organization Address [facility]/ZIP Co de Phone Number [facility] [place] [address] * Anaerobic Culture (07/19/2024 9:51 AM EDT) Anaerobic Culture No anaerobic organisms isolated 07/23/2024 3:24 PM EDT [facility] Bone STRUCTURE OF TOE OF LEFT FOOT / Unknown 07/19/2024 9:51 AM EDT Comment:PERIPHERAL ARTERY DI SEASE Thony Garcia MD MICROBIOLOGY - GENER AL ORDERABLES Performing Organization Address City/[facility]/ZIP Co de Phone Number [facility] [place] [address] * Bone Culture (07/19/2024 9:51 AM EDT) Bone Culture No growth 07/23/2024 12:36 PM EDT [facility] Gram Stain No neutrophils seen 07/23/2024 12:36 PM EDT [facility] Gram Stain No microorganisms seen 07/23/2024 12:36 PM EDT [facility] Bone STRUCTURE OF TOE OF LEFT FOOT / Unknown 07/19/2024 9:51 AM EDT Comment:PERIPHERAL ARTERY DI SEASE Thony Garcia MD MICROBIOLOGY - GENER AL ORDERABLES Performing Organization Address [facility] Co de Phone Number [facility] [place] [address] * AFB culture (07/19/2024 9:51 AM EDT) Acid Fast Bacilli Culture No acid fast bacilli isolated at 8 weeks. 09/13/2024 11:02 AM EST [facility] Bone STRUCTURE OF TOE OF LEFT FOOT / Unknown 07/19/2024 9:51 AM EDT 07/19/2024 10:08 AM EDT Comment:PERIPHERAL ARTERY DI SEASE Thony Garcia MD MICROBIOLOGY - GENER AL ORDERABLES Performing Organization Address [facility] Co de Phone Number [facility] [place] [address] * Fungus culture (07/19/2024 9:51 AM EDT) Fungus Culture No fungus isolated 08/22/2024 9:08 AM EDT [facility] Bone STRUCTURE OF TOE OF LEFT FOOT / Unknown 07/19/2024 9:51 AM EDT 07/19/2024 10:08 AM EDT Comment:PERIPHERAL ARTERY DI SEASE Thony Garcia MD MICROBIOLOGY - GENER AL ORDERABLES Performing Organization Address [facility] Co de Phone Number [facility] [place] [address] * Surgical Pathology (07/19/2024 9:49 AM EDT) Case Report Surgical Pathology Report ? Case: [id number] ? Authorizing Provider: ??Thony Garcia MD ?Collected: ? 07/19/2024 0949 ? Ordering Location: ? Main Operating Room [facility] ?? Received: ?07/19/2024 1009 ? [facility] ? Pathologist: ? Benjamin Shen MD ? Specimen: ?Toe(s), Left Foot, LEFT 2ND TOE (PERM) ? 07/26/2024 1:24 PM EDT [facility] Final Diagnosis A - Left second toe; amputated through the proximal phalanx: - Gangrenous necrosis; amputation margin appears uninvolved. - Largely detached nail. 07/26/2024 1:24 PM EDT [facility] Clinical Information PROVIDED: PERIPHERAL ARTERY DISEASE. 07/26/2024 1:24 PM EDT [facility] Gross Description A. Toe(s), [...] Sections/Process ing: Blocks submitted for decalcification: A1-A2. Slide Fastener Chain Assembler sections in 2 cassettes as follows: A1-A2: Complete longitudinal section of digit cmk 07/26/2024 1:24 PM EDT [facility] Result Note Routine 07/26/2024 1:24 PM EDT [facility] Tissue STRUCTURE OF TOE OF LEFT FOOT / Unknown 07/19/2024 9:49 AM EDT 07/19/2024 10:09 AM EDT Comment:PERIPHERAL ARTERY DI SEASE Thony Garcia MD PATHOLOGY/CYTOLOGY O RDERABLES [facility] [place] [address] * POC, GLUCOSE (07/19/2024 7:21 AM EDT) Glucometer, POC 195 65 - 199 mg/dL 07/19/2024 7:22 AM EDT [facility] Comment:Supplemental ranges: <140 mg/dL before meals <180 mg/dL all other times of the day. Blood CAPILLARY BLOOD / Unknown 07/19/2024 7:21 AM EDT 07/19/2024 7:22 AM EDT Thony Garcia MD POINT OF CARE TEST O RDERABLES Performing Organization Address [facility] Co de Phone Number [facility] [place] [address] * Heparin (unfractionated) Level (07/19/2024 6:29 AM EDT) UF Heparin 0.42 IU/mL 07/19/2024 6:44 AM EDT [facility] Comment: Heparin (anti-Xa) levels [...] MD HEMATOLOGY ORDERABLE S Performing Organization Address City/[facility]/ZIP Co de Phone Number [facility] [place] [address] * POC, GLUCOSE (07/19/2024 4:24 AM EDT) Glucometer, POC 118 65 - 199 mg/dL 07/19/2024 4:24 AM EDT [facility] Comment:Supplemental ranges: <140 mg/dL before meals <180 mg/dL all other times of the day. Blood CAPILLARY BLOOD / Unknown 07/19/2024 4:24 AM EDT 07/19/2024 4:24 AM EDT Thony Garcia MD POINT OF CARE TEST O RDERABLES [facility] [place] [address] * (ABNORMAL) Basic Metabolic Panel (07/19/2024 3:45 AM EDT) Glucose 117 65 - 199 mg/dL 07/19/2024 4:40 AM EDT [facility] Comment:Glucose Concentratio n >=200 mg/dL plus symptoms is consistent with Diabetes Mellitus. Blood Urea Nitrogen 7(L) 10 - 20 mg/dL 07/19/2024 4:40 AM [facility] Creatinine 0.56(L) 0.80 - 1.50 mg/dL 07/19/2024 4:40 AM [facility] Sodium 138 135 - 145 mMol/L 07/19/2024 4:40 AM [facility] Potassium 3.9 3.5 - 5.0 mMol/L 07/19/2024 4:40 AM [facility] Chloride 103 98 - 107 mMol/L 07/19/2024 4:40 AM [facility] Carbon Dioxide 23 22 - 31 mMol/L 07/19/2024 4:40 AM [facility] Anion Gap 12 5 - 15 mMol/L 07/19/2024 4:40 AM [facility] Calcium 9.6 8.5 - 10.5 mg/dL 07/19/2024 4:40 AM [facility] Est Glomerular Filtration Rate - Male 120 mL/min/1. 73 m?? 07/19/2024 4:40 AM [facility] Comment: [...] AM EDT Thony Garcia MD CHEMISTRY ORDERABLES [facility] [place] [address] * (ABNORMAL) CBC (with Diff) (07/19/2024 3:45 AM EDT) White Blood Cell 12.45(H) 4.00 - 9.50 x10(3)/mc L 07/19/2024 4[facility] Red Blood Cell 4.72 4.58 - 5.54 x10(6)/mc L 07/19/2024 4:09 AM [facility] LABORATORY Hemoglobin 13.6(L) 13.7 - 16.5 g/dL 07/19/2024 4:09 AM [facility] Hematocrit 41.0 40.5 - 48.5 % [facility] Mean Cell Volume 86.9 82.9 - 93.1 fL 07/19/2024 4:09 AM [facility] Mean Cell Hemoglobin 28.8 27.5 - 32.1 pg 07/19/2024 4:09 AM [facility] Mean Cell Hemoglobin Concentration 33.2 32.0 - 35.7 g/dL 07/19/2024 4:09 AM [facility] Platelet 421(H) 145 - 357 x10(3)/mc L 07/19/2024 [facility] Mean Platelet Volume 9.4 7.6 [...] - 3.20 x10(3)/mc L 07/19/2024 4:09 AM [facility] Monocyte % 7.5 % 07/19/2024 4:09 AM [facility] Monocyte Absolute 0.93(H) 0.30 - 0.90 x10(3)/mc L 07/19/2024 4:09 AM [facility] Eos % 1.9 % 07/19/2024 4:09 AM [facility] Eos Absolute 0.24 0.00 - 0.40 x10(3)/mc L 07/19/2024 4:09 AM [facility] Basophil % 0.8 % 07/19/2024 4:09 AM [facility] Baso Absolute 0.10 0.00 - 0.10 x10(3)/mc L 07/19/2024 4:09 AM EDT [facility] Immature Gran % 0.6 % 4:09 AM EDT [facility] Immature Gran Absolute 0.08(H) 0.00 - 0.04 x10(3)/mc L 07/19/2024 4:09 AM EDT [facility] Blood VENOUS BLOOD SPECIMEN / Unknown IP Care Team Draw / Unknown 07/19/2024 3:45 AM EDT 07/19/2024 4:00 AM EDT Thony Garcia MD HEMATOLOGY ORDERABLE S [facility] [place] [address] * Phosphorus (07/19/2024 3:45 AM EDT) Phosphorus 4.3 2.5 - 4.5 mg/dL 07/19/2024 4:40 AM EDT [facility] Blood VENOUS BLOOD SPECIMEN / Unknown IP Care Team Draw / Unknown 07/19/2024 3:45 AM EDT 07/19/2024 4:00 AM EDT Thony Garcia MD CHEMISTRY ORDERABLES [facility] [place] [address] * Magnesium (07/19/2024 3:45 AM EDT) Magnesium 0.89 0.69 - 1.07 mMol/L 07/19/2024 4:40 AM EDT [facility] Blood VENOUS BLOOD SPECIMEN / Unknown IP Care Team Draw / Unknown 07/19/2024 3:45 AM EDT 07/19/2024 4:00 AM EDT Thony Garcia MD CHEMISTRY ORDERABLES [facility] [place] [address] * POC, GLUCOSE (07/19/2024 12:01 AM EDT) Glucometer, POC 186 65 - 199 mg/dL 07/19/2024 12:02 AM EDT [facility] Comment:Supplemental ranges: <140 mg/dL before meals <180 mg/dL all other times of the day. Blood CAPILLARY BLOOD / Unknown 07/19/2024 12:01 AM EDT 07/19/2024 12:02 AM EDT Thony Garcia MD POINT OF CARE TEST O RDERABLES Performing Organization Address City/[facility]/ZIP Co de Phone Number [facility] [place] [address] * POC, GLUCOSE (07/18/2024 9:46 PM EDT) Glucometer, POC 185 65 - 199 mg/dL 07/18/2024 9:47 PM EDT [facility] Comment:Supplemental ranges: <140 mg/dL before meals <180 mg/dL all other times of the day. Blood CAPILLARY BLOOD / Unknown 07/18/2024 9:46 PM EDT 07/18/2024 9:47 PM EDT Thony Garcia MD POINT OF CARE TEST O RDERAHERNANDEZ [facility] [place] [address] * POC, GLUCOSE (07/18/2024 3:20 PM EDT) Glucometer, POC 134 65 - 199 mg/dL 07/18/2024 3:20 PM EDT [facility] Comment:Supplemental ranges: <140 mg/dL before meals <180 mg/dL all other times of the day. Blood CAPILLARY BLOOD / Unknown 07/18/2024 3:20 PM EDT 07/18/2024 3:21 PM EDT Thony Garcia MD POINT OF CARE TEST O RDERABLES [facility] [place] [address] * (ABNORMAL) POC, GLUCOSE (07/18/2024 11:53 AM EDT) Glucometer, POC 244(H) 65 - 199 mg/dL 07/18/2024 11:53 AM EDT [facility] Comment:Supplemental ranges: <140 mg/dL before meals <180 mg/dL all other times of the day. Blood CAPILLARY BLOOD / Unknown 07/18/2024 11:53 AM EDT 07/18/2024 11:54 AM EDT Thony Garcia MD POINT OF CARE TEST O RDERABLES [facility] [place] [address] * Vancomycin Level, Random (07/18/2024 8:01 AM EDT) Vancomycin, Random 17.2 mg/L 2023 9:40 AM EDT [facility] Comment:This level is for de termination of the patient's vancomycin [id number]-[id number]-curve (AUC) value. Contact the inpatient pharmacy for interpretation. Blood VENOUS BLOOD SPECIMEN / Unknown IP Care Team Draw / Unknown 07/18/2024 8:01 AM EDT 07/18/2024 8:39 AM EDT Thony Garcia MD CHEMISTRY ORDERABLES [facility] [place] [address] * POC, GLUCOSE (07/18/2024 7:21 AM EDT) Glucometer, POC 177 65 - 199 mg/dL 07/18/2024 7:22 AM EDT [facility] Comment:Supplemental ranges: <140 mg/dL before meals <180 mg/dL all other times of the day. Blood CAPILLARY BLOOD / Unknown 07/18/2024 7:21 AM EDT 07/18/2024 7:22 AM EDT Thony Garcia MD POINT OF CARE TEST O RDERABLES Performing Organization Address [facility] Phone Number [facility] [place] [address] * Heparin (unfractionated) Level (07/18/2024 3:33 AM EDT) UF Heparin 0.35 IU/mL 07/18/2024 4:42 AM EDT [facility] Comment: Heparin (anti-Xa) levels [...] ORDERABLE S Performing Organization Address [facility] Co de Phone Number [facility] [place] [address] * (ABNORMAL) Basic Metabolic Panel (07/18/2024 3:33 AM EDT) Glucose 170 65 - 199 mg/dL 07/18/2024 4:50 AM [facility] Comment:Glucose Concentratio n >=200 mg/dL plus symptoms is consistent with Diabetes Mellitus. Blood Urea Nitrogen 8(L) 10 - 20 mg/dL 07/18/2024 4:50 AM [facility] Creatinine 0.53(L) 0.80 - 1.50 mg/dL 07/18/2024 4:50 AM [facility] Sodium 136 135 - 145 mMol/L 07/18/2024 4:50 AM [facility] Potassium 4.3 3.5 - 5.0 mMol/L 07/18/2024 4:50 AM [facility] Chloride 101 98 - 107 mMol/L 07/18/2024 4:50 AM [facility] Carbon Dioxide 23 22 - 31 mMol/L 07/18/2024 4:50 AM [facility] Anion Gap 12 5 - 15 mMol/L 07/18/2024 4:50 AM [facility] Calcium 9.2 8.5 - 10.5 mg/dL 07/18/2024 4:50 AM [facility] Est Glomerular Filtration Rate - Male 122 mL/min/1. 73 m?? 07/18/2024 4:50 AM [facility] Comment: [...] AM EDT Thony Garcia MD CHEMISTRY ORDERABLES [facility] [place] [address] * (ABNORMAL) CBC (with Diff) (07/18/2024 3:33 AM EDT) White Blood Cell 11.56(H) 4.00 - 9.50 x10(3)/mc L 07/18/2024 4:26 AM EDT [facility] Red Blood Cell 4.55(L) 4.58 - 5.54 x10(6)/mc L 07/18/2024 4:26 AM EDT [facility] Hemoglobin 13.4(L) 13.7 - 16.5 g/dL 07/18/2024 4:26 AM EDT [facility] Hematocrit 40.2(L) 40.5 - 48.5 % 07/18/2024 4:26 AM EDT [facility] Mean Cell Volume 88.4 82.9 - 93.1 fL 07/18/2024 4:26 AM EDT [facility] Mean Cell Hemoglobin 29.5 27.5 - 32.1 pg 07/18/2024 4:26 AM T [facility] Mean Cell Hemoglobin Concentration 33.3 32.0 - 35.7 g/dL 07/18/2024 4:26 AM EDT [facility] Platelet 392(H) 145 - 357 x10(3)/mc L 07/18/2024 4:26 AM EDT [facility] Mean Platelet Volume 10.2 7.6 - 12.9 fL 07/18/2024 4:26 AM EDT [facility] RDW Standard Deviation 42.0 36.0 - 45.0 fL [facility] RDW coefficient of variation 13.1 [...] Eos % 1.7 % 07/18/2024 4:26 AM [facility] Eos Absolute 0.20 0.00 - 0.40 x10(3)/mc L 07/18/2024 4:26 AM [facility] Basophil % 0.8 % 07/18/2024 4:26 AM [facility] Baso Absolute 0.09 0.00 - 0.10 x10(3)/mc L 07/18/2024 4:26 AM [facility] Immature Gran % 0.6 % 4:26 AM [facility] Immature Gran Absolute 0.07(H) 0.00 - 0.04 x10(3)/mc L 07/18/2024 4:26 AM [facility] Blood VENOUS BLOOD SPECIMEN / Unknown IP Care Team Draw / Unknown 07/18/2024 3:33 AM EDT 07/18/2024 4:21 AM EDT Thony Garcia MD HEMATOLOGY ORDERABLE S [facility] [place] [address] * Phosphorus (07/18/2024 3:33 AM EDT) Phosphorus 3.7 2.5 - 4.5 mg/dL 07/18/2024 4:50 AM EDT [facility] Blood VENOUS BLOOD SPECIMEN / Unknown IP Care Team Draw / Unknown 07/18/2024 3:33 AM EDT 07/18/2024 4:21 AM EDT Thony Garcia MD CHEMISTRY ORDERABLES Performing Organization Address City/[facility]/ZIP Co de Phone Number [facility] [place] [address] * Magnesium (07/18/2024 3:33 AM EDT) Magnesium 0.88 0.69 - 1.07 mMol/L 07/18/2024 4:50 AM EDT [facility] Blood VENOUS BLOOD SPECIMEN / Unknown IP Care Team Draw / Unknown 07/18/2024 3:33 AM EDT 07/18/2024 4:21 AM EDT Thony Garcia MD CHEMISTRY ORDERABLES [facility] [place] [address] * LDL Cholesterol, Direct (07/18/2024 3:33 AM EDT) LDL Cholesterol, Direct 65 mg/dL 07/18/2024 4:50 AM EDT [facility] Comment: Desirable: <100 mg/dL [...] AM EDT Thony Garcia MD CHEMISTRY ORDERABLES [facility] [place] [address] * HDL/Cholesterol Profile (07/18/2024 3:33 AM EDT) Cholesterol, Total 114 mg/dL 07/18/2024 4:50 AM EDT [facility] Comment: Desirable: < 200 mg/dL Borderline High: 200 - 239 mg/dL High: > or = 240 mg/dL HDL Cholesterol 38 mg/dL 4:50 AM EDT [facility] Comment:Males: High Risk: <4 0 mg/dL Non-HDL Cholesterol 76 mg/dL 07/18/2024 4:50 AM EDT [facility] Comment: Desirable: <130 mg/dL Above Desirable: 130-159 mg/dL Borderline High: 160-189 mg/dL High: 190-219 mg/dL Very High: > or = 220 mg/dL Blood VENOUS BLOOD SPECIMEN / Unknown IP Care Team Draw / Unknown 07/18/2024 3:33 AM EDT 07/18/2024 4:21 AM EDT Narrative [facility] - 07/18/2024 4:50 AM EDT [...] Guidelines (most recently Johann et [facility]. [facility] 08/11/22): * For individuals with [...] artery disease) Thony Garcia MD CHEMISTRY ORDERABLES [facility] [place] [address] * (ABNORMAL) POC, GLUCOSE (07/18/2024 3:21 AM EDT) Glucometer, POC 200(H) 65 - 199 mg/dL 07/18/2024 3:22 AM EDT [facility] Comment:Supplemental ranges: <140 mg/dL before meals <180 mg/dL all other times of the day. Blood CAPILLARY BLOOD / Unknown 07/18/2024 3:21 AM EDT 07/18/2024 3:22 AM EDT Thony Garcia MD POINT OF CARE TEST O RDERABLES Performing Organization Address City/[facility]/ZIP Co de Phone Number [facility] [place] [address] * (ABNORMAL) POC, GLUCOSE (07/18/2024 12:44 AM EDT) Glucometer, POC 216(H) 65 - 199 mg/dL 07/18/2024 12:44 AM EDT [facility] Comment:Supplemental ranges: <140 mg/dL before meals <180 mg/dL all other times of the day. Blood CAPILLARY BLOOD / Unknown 07/18/2024 12:44 AM EDT 07/18/2024 12:44 AM EDT Thony Garcia MD POINT OF CARE TEST O RDERAHERNANDEZ [facility] [place] [address] * (ABNORMAL) POC, GLUCOSE (07/17/2024 9:02 PM EDT) Glucometer, POC 294(H) 65 - 199 mg/dL 07/17/2024 9:02 PM EDT [facility] Comment:Supplemental ranges: <140 mg/dL before meals <180 mg/dL all other times of the day. Blood CAPILLARY BLOOD / Unknown 07/17/2024 9:02 PM EDT 07/17/2024 9:03 PM EDT Thony Garcia MD POINT OF CARE TEST O RDERABLES Performing Organization Address City/[facility] Co de Phone Number [facility] [place] [address] * (ABNORMAL) POC, GLUCOSE (07/17/2024 4:07 PM EDT) Glucometer, POC 219(H) 65 - 199 mg/dL 07/17/2024 4:07 PM EDT [facility] Comment:Supplemental ranges: <140 mg/dL before meals <180 mg/dL all other times of the day. Blood CAPILLARY BLOOD / Unknown 07/17/2024 4:07 PM EDT 07/17/2024 4:07 PM EDT Thony Garcia MD POINT OF CARE TEST O RDERAHERNANDEZ Performing Organization Address [facility] Co de Phone Number [facility] [place] [address] * (ABNORMAL) POC, GLUCOSE (07/17/2024 11:31 AM EDT) Glucometer, POC 255(H) 65 - 199 mg/dL 07/17/2024 11:32 AM EDT [facility] Comment:Supplemental ranges: <140 mg/dL before meals <180 mg/dL all other times of the day. Blood CAPILLARY BLOOD / Unknown 07/17/2024 11:31 AM EDT 07/17/2024 11:32 AM EDT Thony Garcia MD POINT OF CARE TEST O RDERAHERNANDEZ Performing Organization Address City/[facility]/ZIP Co de Phone Number [facility] [place] [address] * POC, GLUCOSE (07/17/2024 7:38 AM EDT) Pathologist [facility] Glucometer, POC 112 65 - 199 mg/dL 07/17/2024 7:38 AM EDT [facility] Comment:Supplemental ranges: <140 mg/dL before meals <180 mg/dL all other times of the day. Blood CAPILLARY BLOOD / Unknown 07/17/2024 7:38 AM EDT 07/17/2024 7:38 AM EDT Thony Garcia MD POINT OF CARE TEST O RDERABLES [facility] [place] [address] * ELEN, legs, multiple levels (07/17/2024 6:31 AM EDT) [facility] Signature VB Text Report Department: Vascular Surgery Lab Patient: [id number] (GEOVANNA DIXON) CPT: 98047 Referring Physician: VIBHA TIERNEY ?? Indications: PAD [...] ? Dorsalis Pedis (Ankle) Artery ?83 ?0.55 ??Motley-Biphasic ? Posterior Tibial (Ankle) Artery ??87 ?0.57 [...] APRN VASCULAR ORDERABLE S Performing Organization Address City/[facility] Co de Phone Number [facility] * (ABNORMAL) POC, GLUCOSE (07/17/2024 4:12 AM EDT) Glucometer, POC 205(H) 65 - 199 mg/dL 07/17/2024 4:12 AM EDT [facility] Comment:Supplemental ranges: <140 mg/dL before meals <180 mg/dL all other times of the day. Blood CAPILLARY BLOOD / Unknown 07/17/2024 4:12 AM EDT 07/17/2024 4:12 AM EDT Thony Garcia MD POINT OF CARE TEST O RDERABLES Performing Organization Address City/[facility] Co de Phone Number [facility] [place] [address] * Heparin (unfractionated) Level (07/17/2024 3:42 AM EDT) UF Heparin 0.42 IU/mL 07/17/2024 4:38 AM EDT [facility] Comment: Heparin (anti-Xa) levels [...] ORDERABLE S Performing Organization Address [facility] Co de Phone Number [facility] [place] [address] * Phosphorus (07/17/2024 3:42 AM EDT) Phosphorus 3.6 2.5 - 4.5 mg/dL 07/17/2024 4:47 AM EDT [facility] Blood VENOUS BLOOD SPECIMEN / Unknown IP Care Team Draw / Unknown 07/17/2024 3:42 AM EDT 07/17/2024 4:15 AM EDT Thony Garcia MD CHEMISTRY ORDERABLES Performing Organization Address [facility] Co de Phone Number [facility] [place] [address] * Magnesium (07/17/2024 3:42 AM EDT) Magnesium 0.78 0.69 - 1.07 mMol/L 07/17/2024 4:47 AM EDT [facility] Blood VENOUS BLOOD SPECIMEN / Unknown IP Care Team Draw / Unknown 07/17/2024 3:42 AM EDT 07/17/2024 4:15 AM EDT Thony Garcia MD CHEMISTRY ORDERABLES Performing Organization Address [facility] Co de Phone Number [facility] [place] [address] * (ABNORMAL) Basic Metabolic Panel (07/17/2024 3:42 AM EDT) Glucose 225(H) 65 - 199 mg/dL 07/17/2024 4:47 AM [facility] Comment:Glucose Concentratio n >=200 mg/dL plus symptoms is consistent with Diabetes Mellitus. Blood Urea Nitrogen 9(L) 10 - 20 mg/dL 07/17/2024 4:47 AM [facility] Creatinine 0.49(L) 0.80 - 1.50 mg/dL 07/17/2024 4:47 AM [facility] Sodium 135 135 - 145 mMol/L 07/17/2024 4:47 AM [facility] Potassium 3.7 3.5 - 5.0 mMol/L 07/17/2024 4:47 AM [facility] Chloride 103 98 - 107 mMol/L 07/17/2024 4:47 AM [facility] Carbon Dioxide 21(L) 22 - 31 mMol/L 07/17/2024 4:47 AM [facility] Anion Gap 11 5 - 15 mMol/L 07/17/2024 4:47 AM [facility] Calcium 9.1 8.5 - 10.5 mg/dL 07/17/2024 4:47 AM [facility] Est Glomerular Filtration Rate - Male 125 mL/min/1. 73 m?? 07/17/2024 4:47 AM [facility] Comment: [...] AM EDT Thony Garcia MD CHEMISTRY ORDERABLES [facility] [place] [address] * (ABNORMAL) CBC (with Diff) (07/17/2024 3:42 AM EDT) White Blood Cell 11.02(H) 4.00 - 9.50 x10(3)/mc L [facility] Red Blood Cell 4.43(L) 4.58 - 5.54 x10(6)/mc L 07/17/2024 4:21 AM [facility] Hemoglobin 13.1(L) 13.7 - 16.5 g/dL 07/17/2024 4:21 AM [facility] Hematocrit 38.8(L) 40.5 - [...] Monocyte % 6.0 % 07/17/2024 4:21 AM [facility] Monocyte Absolute 0.66 0.30 - 0.90 x10(3)/mc L 07/17/2024 4:21 AM [facility] Eos % 1.6 % 07/17/2024 4:21 AM [facility] Eos Absolute 0.18 0.00 - 0.40 x10(3)/mc L 07/17/2024 4:21 AM [facility] Basophil % 0.5 % 07/17/2024 4:21 AM [facility] Baso Absolute 0.05 0.00 - 0.10 x10(3)/mc L 07/17/2024 4:21 AM [facility] Immature Gran % 0.6 % 4:21 AM [facility] Immature Gran Absolute 0.07(H) 0.00 - 0.04 x10(3)/mc L 07/17/2024 4:21 AM EDT [facility] Blood VENOUS BLOOD SPECIMEN / Unknown IP Care Team Draw / Unknown 07/17/2024 3:42 AM EDT 07/17/2024 4:15 AM EDT Thony Garcia MD HEMATOLOGY ORDERABLE S Performing Organization Address [facility] Co de Phone Number [facility] [place] [address] * (ABNORMAL) POC, GLUCOSE (07/17/2024 2:25 AM EDT) Glucometer, POC 262(H) 65 - 199 mg/dL 07/17/2024 2:25 AM EDT [facility] Comment:Supplemental ranges: <140 mg/dL before meals <180 mg/dL all other times of the day. Blood CAPILLARY BLOOD / Unknown 07/17/2024 2:25 AM EDT 07/17/2024 2:25 AM EDT Thony Garcia MD POINT OF CARE TEST O GILDA Performing Organization Address [facility] Co de Phone Number [facility] [place] [address] * (ABNORMAL) POC, GLUCOSE (07/17/2024 12:19 AM EDT) Glucometer, POC 262(H) 65 - 199 mg/dL 07/17/2024 12:19 AM EDT [facility] Comment:Supplemental ranges: <140 mg/dL before meals <180 mg/dL all other times of the day. Blood CAPILLARY BLOOD / Unknown 07/17/2024 12:19 AM EDT 07/17/2024 12:20 AM EDT Thony Garcia MD POINT OF CARE TEST O GILDA Performing Organization Address City/[facility]/ZIP Co de Phone Number [facility] [place] [address] * (ABNORMAL) POC, GLUCOSE (07/16/2024 8:22 PM EDT) Glucometer, POC 217(H) 65 - 199 mg/dL 07/16/2024 8:23 PM EDT [facility] Comment:Supplemental ranges: <140 mg/dL before meals <180 mg/dL all other times of the day. Blood CAPILLARY BLOOD / Unknown 07/16/2024 8:22 PM EDT 07/16/2024 8:23 PM EDT Thony Garcia MD POINT OF CARE TEST O GILDA Performing Organization Address [facility] Co de Phone Number [facility] [place] [address] * POC, GLUCOSE (07/16/2024 3:47 PM EDT) Glucometer, POC 184 65 - 199 mg/dL 07/16/2024 3:47 PM EDT [facility] Comment:Supplemental ranges: <140 mg/dL before meals <180 mg/dL all other times of the day. Blood CAPILLARY BLOOD / Unknown 07/16/2024 3:47 PM EDT 07/16/2024 3:48 PM EDT Thony Garcia MD POINT OF CARE TEST O GILDA Performing Organization Address [facility] Co de Phone Number [facility] [place] [address] * Heparin (unfractionated) Level (07/16/2024 3:39 PM EDT) UF Heparin 0.47 IU/mL 07/16/2024 4:24 PM EDT [facility] Comment: Heparin (anti-Xa) levels [...] MD HEMATOLOGY ORDERABLE S Performing Organization Address City/[facility]/ZIP Co de Phone Number [facility] [place] [address] * Potassium (07/16/2024 3:39 PM EDT) Pathologist [facility] Potassium 3.9 3.5 - 5.0 mMol/L 07/16/2024 4:15 PM EDT [facility] Blood VENOUS BLOOD SPECIMEN / Unknown IP Care Team Draw / Unknown 07/16/2024 3:39 PM EDT 07/16/2024 3:47 PM EDT Hermila White APRN CHEMISTRY ORDERABL ES Performing Organization Address City/[facility]/ZIP Co de Phone Number [facility] [place] [address] * MRSA PCR Screen (07/16/2024 2:07 PM EDT) MRSA PCR Not Detected 07/17/2024 6:04 PM EDT [facility] Swab BOTH ANTERIOR NARES / Unknown Non Blood Collection / Unknown 07/16/2024 2:07 PM EDT 07/16/2024 2:13 PM EDT Narrative [facility] - 07/17/2024 6:04 PM EDT This test was performed using the Xpert MRSA NxG test kit and is run on the [employer] GeneXpert Dx System. This test is cleared by the U.[place]. Food and Drug Administration for clinical use and its performance characteristics have been verified by the [facility] at [facility]. This test was performed using the Xpert MRSA NxG test kit and is run on the [employer] GeneXpert Dx System. This test is cleared by the U.S. Food and Drug Administration for clinical use and its performance characteristics have been verified by the [facility] at [facility]. Hermila White APRN MOLECULAR ORDERABL ES Performing Organization Address City/[facility]/ZIP Co de Phone Number [facility] [place] [address] * POC, GLUCOSE (07/16/2024 1:33 PM EDT) Glucometer, POC 183 65 - 199 mg/dL 07/16/2024 1:33 PM EDT [facility] Comment:Supplemental ranges: <140 mg/dL before meals <180 mg/dL all other times of the day. Blood CAPILLARY BLOOD / Unknown 07/16/2024 1:33 PM EDT 07/16/2024 1:33 PM EDT Thony Garcia MD POINT OF CARE TEST O RDERABLES Performing Organization Address [facility]/ZIP Co de Phone Number [facility] [place] [address] * (ABNORMAL) POC, GLUCOSE (07/16/2024 11:41 AM EDT) Glucometer, POC 259(H) 65 - 199 mg/dL 07/16/2024 11:41 AM EDT [facility] [facility] Comment:Supplemental ranges: <140 mg/dL before meals <180 mg/dL all other times of the day. Blood CAPILLARY BLOOD / Unknown 07/16/2024 11:41 AM EDT 07/16/2024 11:41 AM EDT Thony Garcia MD POINT OF CARE TEST O RDERABLES Performing Organization Address [facility] Co de Phone Number [facility] [place] [address] * Heparin (unfractionated) Level (07/16/2024 9:41 AM EDT) UF Heparin 0.60 IU/mL 07/16/2024 9:54 AM EDT [facility] Comment: Heparin (anti-Xa) levels [...] ORDERABLE S Performing Organization Address [facility] Co de Phone Number [facility] [place] [address] * (ABNORMAL) POC, GLUCOSE (07/16/2024 7:10 AM EDT) Glucometer, POC 205(H) 65 - 199 mg/dL 07/16/2024 7:11 AM EDT [facility] Comment:Supplemental ranges: <140 mg/dL before meals <180 mg/dL all other times of the day. Blood CAPILLARY BLOOD / Unknown 07/16/2024 7:10 AM EDT 07/16/2024 7:11 AM EDT Thony Garcia MD POINT OF CARE TEST O RDERABLES Performing Organization Address City/[facility]/ZIP Co de Phone Number [facility] [place] [address] * (ABNORMAL) Potassium (07/16/2024 4:15 AM EDT) Potassium 3.2(L) 3.5 - 5.0 mMol/L 07/16/2024 4:53 AM EDT [facility] Blood VENOUS BLOOD SPECIMEN / Unknown IP Care Team Draw / Unknown 07/16/2024 4:15 AM EDT 07/16/2024 4:23 AM EDT Thony Garcia MD CHEMISTRY ORDERABLES Performing Organization Address [facility] Co de Phone Number [facility] [place] [address] * Phosphorus (07/16/2024 4:15 AM EDT) Phosphorus 3.7 2.5 - 4.5 mg/dL 07/16/2024 4:53 AM EDT [facility] Blood VENOUS BLOOD SPECIMEN / Unknown IP Care Team Draw / Unknown 07/16/2024 4:15 AM EDT 07/16/2024 4:23 AM EDT Thony Garcia MD CHEMISTRY ORDERABLES Performing Organization Address City/[facility] Co de Phone Number [facility] [place] [address] * POC, GLUCOSE (07/16/2024 4:14 AM EDT) Glucometer, POC 187 65 - 199 mg/dL 07/16/2024 4:17 AM EDT [facility] Comment:Supplemental ranges: <140 mg/dL before meals <180 mg/dL all other times of the day. Blood CAPILLARY BLOOD / Unknown 07/16/2024 4:14 AM EDT 07/16/2024 4:17 AM EDT Thony Garcia MD POINT OF CARE TEST O GILDA Performing Organization Address [facility] Co de Phone Number [facility] [place] [address] * (ABNORMAL) POC, GLUCOSE (07/16/2024 2:07 AM EDT) Glucometer, POC 254(H) 65 - 199 mg/dL 07/16/2024 2:08 AM EDT [facility] Comment:Supplemental ranges: <140 mg/dL before meals <180 mg/dL all other times of the day. Blood CAPILLARY BLOOD / Unknown 07/16/2024 2:07 AM EDT 07/16/2024 2:08 AM EDT Thony Garcia MD POINT OF CARE TEST Stephanie VO Performing Organization Address [facility] Co de Phone Number [facility] [place] [address] * Heparin (unfractionated) Level (07/16/2024 2:07 AM EDT) [facility] UF Heparin 0.72 IU/mL 07/16/2024 2:36 AM EDT [facility] Comment: Heparin (anti-Xa) levels [...] ORDERABLE S Performing Organization Address [facility] Co de Phone Number [facility] [place] [address] * Magnesium (07/16/2024 2:07 AM EDT) Magnesium 0.83 0.69 - 1.07 mMol/L 07/16/2024 2:47 AM EDT [facility] Blood VENOUS BLOOD SPECIMEN / Unknown IP Care Team Draw / Unknown 07/16/2024 2:07 AM EDT 07/16/2024 2:14 AM EDT Thony Garcia MD CHEMISTRY ORDERABLES Performing Organization Address [facility] Co de Phone Number [facility] [place] [address] * (ABNORMAL) Basic Metabolic Panel (07/16/2024 2:07 AM EDT) Glucose 248(H) 65 - 199 mg/dL 07/16/2024 2:57 AM EDT [facility] Comment:Glucose Concentratio n >=200 mg/dL plus symptoms is consistent with Diabetes Mellitus. Blood Urea Nitrogen 8(L) 10 - 20 mg/dL 07/16/2024 2:57 AM EDT [facility] Creatinine 0.42(L) 0.80 - 1.50 mg/dL 07/16/2024 2:57 AM EDT [facility] Sodium 135 135 - 145 mMol/L 07/16/2024 2:57 AM EDT [facility] Potassium 07/16/2024 2:57 AM EDT [facility] Comment:Unable to report due to hemolysis Chloride 101 98 - 107 mMol/L 07/16/2024 2:57 AM EDT [facility] Carbon Dioxide 22 22 - 31 mMol/L 07/16/2024 2:57 AM EDT [facility] Anion Gap 12 5 - 15 mMol/L 07/16/2024 2:57 AM EDT [facility] Calcium 9.0 8.5 - 10.5 mg/dL 07/16/2024 2:57 AM EDT [facility] Est Glomerular Filtration Rate - Male 131 mL/min/1. 73 m?? 07/16/2024 2:57 AM EDT [facility] Comment: This patient's [...] AM EDT Thony Garcia MD CHEMISTRY ORDERABLES [facility] [place] [address] * (ABNORMAL) CBC (with Diff) (07/16/2024 2:07 AM EDT) White Blood Cell 11.08(H) 4.00 - 9.50 x10(3)/mc L 07/16/2024 2:23 AM EDT [facility] Red Blood Cell 4.29(L) 4.58 - 5.54 x10(6)/mc L 07/16/2024 2:23 AM EDT [facility] Hemoglobin 12.7(L) 13.7 - 16.5 g/dL 07/16/2024 2:23 AM [facility] Hematocrit 36.6(L) 40.5 - 48.5 % 07/16/2024 2:23 AM [facility] Mean Cell Volume 85.3 82.9 - 93.1 fL 07/16/2024 2:23 AM [facility] Mean Cell Hemoglobin 29.6 27.5 - 32.1 pg 07/16/2024 2:23 AM [facility] Mean Cell Hemoglobin Concentration 34.7 32.0 - 35.7 g/dL 07/16/2024 2:23 AM [facility] Platelet 363(H) 145 - 357 x10(3)/mc L 07/16/2024 2:23 AM [facility] Mean Platelet Volume 10.3 7.6 - 12.9 fL 07/16/2024 2:23 AM [facility] RDW Standard Deviation 39.2 36.0 - 45.0 fL 07/16/2024 2:23 AM [facility] RDW [...] 3.20 x10(3)/mc L 07/16/2024 2:23 AM EDT [facility] Monocyte % 6.9 % 07/16/2024 2:23 AM EDT [facility] Monocyte Absolute 0.77 0.30 - 0.90 x10(3)/mc L 07/16/2024 2:23 AM EDT [facility] Eos % 1.6 % 07/16/2024 2:23 AM EDT [facility] Eos Absolute 0.18 0.00 - 0.40 x10(3)/mc L 07/16/2024 2:23 AM EDT [facility] Basophil % 0.6 % 07/16/2024 2:23 AM EDT [facility] Baso Absolute 0.07 0.00 - 0.10 x10(3)/mc L 07/16/2024 2:23 AM EDT [facility] Immature Gran % 0.5 % 2:23 AM EDT [facility] Immature Gran Absolute 0.05(H) 0.00 - 0.04 x10(3)/mc L 07/16/2024 2:23 AM EDT [facility] Blood VENOUS BLOOD SPECIMEN / Unknown IP Care Team Draw / Unknown 07/16/2024 2:07 AM EDT 07/16/2024 2:14 AM EDT Thony Garcia MD HEMATOLOGY ORDERABLE S [facility] [place] [address] * (ABNORMAL) POC, GLUCOSE (07/16/2024 12:04 AM EDT) Glucometer, POC 324(H) 65 - 199 mg/dL 07/16/2024 12:05 AM EDT [facility] Comment:Supplemental ranges: <140 mg/dL before meals <180 mg/dL all other times of the day. Blood CAPILLARY BLOOD / Unknown 07/16/2024 12:04 AM EDT 07/16/2024 12:05 AM EDT Thony Garcia MD POINT OF CARE TEST O GILDA Performing Organization Address [facility] Co de Phone Number [facility] [place] [address] * (ABNORMAL) POC, GLUCOSE (07/15/2024 8:36 PM EDT) Glucometer, POC 274(H) 65 - 199 mg/dL 07/15/2024 8:36 PM EDT [facility] Comment:Supplemental ranges: <140 mg/dL before meals <180 mg/dL all other times of the day. Blood CAPILLARY BLOOD / Unknown 07/15/2024 8:36 PM EDT 07/15/2024 8:36 PM EDT Thony Garcia MD POINT OF CARE TEST O GILDA Performing Organization Address [facility] Co de Phone Number [facility] [place] [address] * Heparin (unfractionated) Level (07/15/2024 8:21 PM EDT) UF Heparin 0.55 IU/mL 07/15/2024 8:42 PM EDT [facility] Comment: Heparin (anti-Xa) levels [...] MD HEMATOLOGY ORDERABLE S Performing Organization Address City/[facility]/ZIP Co de Phone Number [facility] [place] [address] * (ABNORMAL) POC, GLUCOSE (07/15/2024 4:41 PM EDT) Glucometer, POC 275(H) 65 - 199 mg/dL 07/15/2024 4:42 PM EDT [facility] Comment:Supplemental ranges: <140 mg/dL before meals <180 mg/dL all other times of the day. Blood CAPILLARY BLOOD / Unknown 07/15/2024 4:41 PM EDT 07/15/2024 4:42 PM EDT Thony Garcia MD POINT OF CARE TEST O RDERABLES Performing Organization Address [facility] Co de Phone Number [facility] [place] [address] * (ABNORMAL) Vancomycin, trough (07/15/2024 2:19 PM EDT) Vancomycin, Trough 9.7(L) 10.0 - 20.0 mg/L 07/15/2024 3:28 PM EDT [facility] Comment: Varies according to infection source. Blood VENOUS BLOOD SPECIMEN / Unknown IP Care Team Draw / Unknown 07/15/2024 2:19 PM EDT 07/15/2024 3:00 PM EDT Thony Garcia MD CHEMISTRY ORDERABLES Performing Organization Address [facility]/ZIP Co de Phone Number [facility] [place] [address] * (ABNORMAL) POC, GLUCOSE (07/15/2024 1:16 PM EDT) Glucometer, POC 223(H) 65 - 199 mg/dL 07/15/2024 1:17 PM EDT [facility] Comment:Supplemental ranges: <140 mg/dL before meals <180 mg/dL all other times of the day. Blood CAPILLARY BLOOD / Unknown 07/15/2024 1:16 PM EDT 07/15/2024 1:18 PM EDT Thony Garcia MD POINT OF CARE TEST O GILDA Performing Organization Address [facility] Co de Phone Number [facility] [place] [address] * POC, GLUCOSE (07/15/2024 8:34 AM EDT) Glucometer, POC 133 65 - 199 mg/dL 07/15/2024 8:35 AM EDT [facility] Comment:Supplemental ranges: <140 mg/dL before meals <180 mg/dL all other times of the day. Blood CAPILLARY BLOOD / Unknown 07/15/2024 8:34 AM EDT 07/15/2024 8:35 AM EDT Thony Garcia MD POINT OF CARE TEST O GILDA Performing Organization Address [facility] de Phone Number [facility] [place] [address] * (ABNORMAL) POC, GLUCOSE (07/15/2024 4:44 AM EDT) Glucometer, POC 224(H) 65 - 199 mg/dL 07/15/2024 4:44 AM EDT [facility] Comment:Supplemental ranges: <140 mg/dL before meals <180 mg/dL all other times of the day. Blood CAPILLARY BLOOD / Unknown 07/15/2024 4:44 AM EDT 07/15/2024 4:44 AM EDT Thony Garcia MD POINT OF CARE TEST O GILDA Performing Organization Address City/[facility] Co de Phone Number [facility] [place] [address] * (ABNORMAL) POC, GLUCOSE (07/15/2024 2:48 AM EDT) Glucometer, POC 281(H) 65 - 199 mg/dL 07/15/2024 2:48 AM EDT [facility] Comment:Supplemental ranges: <140 mg/dL before meals <180 mg/dL all other times of the day. Blood CAPILLARY BLOOD / Unknown 07/15/2024 2:48 AM EDT 07/15/2024 2:48 AM EDT Thony Garcia MD POINT OF CARE TEST O RDERABLES [facility] [place] [address] * (ABNORMAL) Basic Metabolic Panel (07/15/2024 12:45 AM EDT) Glucose 309(H) 65 - 199 mg/dL 07/15/2024 1:28 AM EDT [facility] Comment:Glucose Concentratio n >=200 mg/dL plus symptoms is consistent with Diabetes Mellitus. Blood Urea Nitrogen 8(L) 10 - 20 mg/dL 07/15/2024 1:28 AM EDT [facility] Creatinine 0.80 0.80 - 1.50 mg/dL 07/15/2024 1:28 AM EDT [facility] Sodium 132(L) 135 - 145 mMol/L 07/15/2024 1:28 AM EDT [facility] Potassium 3.7 3.5 - 5.0 mMol/L 07/15/2024 1:28 AM EDT [facility] Chloride 99 98 - 107 mMol/L 07/15/2024 1:28 AM EDT [facility] Carbon Dioxide 20(L) 22 - 31 mMol/L 07/15/2024 1:28 AM EDT [facility] Anion Gap 13 5 - 15 mMol/L 07/15/2024 1:28 AM EDT [facility] Calcium 8.5 8.5 - 10.5 mg/dL 07/15/2024 1:28 AM EDT [facility] Est Glomerular Filtration Rate - Male 108 mL/min/1. 73 m?? 07/15/2024 1:28 AM EDT [facility] Comment: This patient's [...] AM EDT Thony Garcia MD CHEMISTRY ORDERABLES [facility] [place] [address] * (ABNORMAL) CBC (with Diff) (07/15/2024 12:45 AM EDT) White Blood Cell 11.70(H) 4.00 - 9.50 x10(3)/mc L 07/15/2024 1:05 AM EDT [facility] Red Blood Cell 4.13(L) 4.58 - 5.54 x10(6)/mc L 07/15/2024 1:05 AM EDT [facility] Hemoglobin 12.1(L) 13.7 - 16.5 g/dL 07/15/2024 1:05 AM EDT [facility] Hematocrit 35.7(L) 40.5 - 48.5 % 07/15/2024 1:05 AM EDT [facility] Mean Cell Volume 86.4 82.9 - 93.1 fL 07/15/2024 1:05 AM [facility] Mean Cell Hemoglobin 29.3 27.5 - 32.1 pg 07/15/2024 1:05 AM [facility] Mean Cell Hemoglobin Concentration 33.9 32.0 - 35.7 g/dL 07/15/2024 1:05 AM [facility] Platelet 322 145 - 357 x10(3)/mc L 07/15/2024 1:05 AM [facility] Mean Platelet Volume 9.9 7.6 - 12.9 fL 07/15/2024 1:05 AM [facility] RDW Standard Deviation 40.2 36.0 - 45.0 fL 07/15/2024 1:05 AM [facility] RDW coefficient of variation 12.9 11.4 - 13.8 % 07/15/2024 1:05 AM [facility] NRBC% auto 0.0 % 07/15/2024 1:05 AM [facility] NRBC Absolute 0.00 0.00 - 0.00 x10(3)/mc L 07/15/2024 1:05 AM [facility] Neutrophil % 74.9 % 07/15/2024 1:05 AM [facility] Neutrophil Absolute (ANC) - Automated 8.75(H) 1.70 - 6.10 x10(3)/mc L 07/15/2024 1:05 AM [facility] Lymph % 16.3 % 07/15/2024 1:05 AM [facility] Lymph Absolute 1.91 0.90 - 3.20 x10(3)/mc L 07/15/2024 1:05 AM [facility] Monocyte % 6.6 % 07/15/2024 1:05 AM [facility] Monocyte Absolute 0.77 0.30 - 0.90 x10(3)/mc L 07/15/2024 1:05 AM EDT [facility] Eos % 1.5 % 07/15/2024 1:05 AM EDT [facility] Eos Absolute 0.18 0.00 - 0.40 x10(3)/mc L 07/15/2024 1:05 AM EDT [facility] Basophil % 0.3 % 07/15/2024 1:05 AM EDT [facility] Baso Absolute 0.04 0.00 - 0.10 x10(3)/mc L 07/15/2024 1:05 AM EDT [facility] Immature Gran % 0.4 % 1:05 AM EDT [facility] Immature Gran Absolute 0.05(H) 0.00 - 0.04 x10(3)/mc L 07/15/2024 1:05 AM EDT [facility] Blood VENOUS BLOOD SPECIMEN / Unknown IP Care Team Draw / Unknown 07/15/2024 12:45 AM EDT 07/15/2024 1:00 AM EDT Thony Garcia MD HEMATOLOGY ORDERABLE S Performing Organization Address City/[facility]/ZIP Co de Phone Number [facility] [place] [address] * (ABNORMAL) POC, GLUCOSE (07/15/2024 12:29 AM EDT) Glucometer, POC 394(H) 65 - 199 mg/dL 07/15/2024 12:30 AM EDT [facility] Comment:Supplemental ranges: <140 mg/dL before meals <180 mg/dL all other times of the day. Blood CAPILLARY BLOOD / Unknown 07/15/2024 12:29 AM EDT 07/15/2024 12:30 AM EDT Thony Garcia MD POINT OF CARE TEST O RDERABLES Performing Organization Address City/[facility]/ZIP Co de Phone Number [facility] [place] [address] * CT Angiogram Aortic Lower Extremity Runoff (07/14/2024 11:57 PM EDT) WORKSTATION ID [id number] RAD Anatomical Region Laterality Modality Abdomen Computed [...] who have questions please contact the health landcare officer that requested your imaging first. ? Electronically signed by: Geovanna Ray MD, [facility] ??([phone]), at 07/15/2024 1:13 AM Narrative 07/15/2024 1:13 [...] 2.6 cm vessel length at and just [id number], similar to prior. Anterior tibial artery: No [...] the intravenous administration of contrast. 149 cc [id number]. Maximum intensity projection (MIP) were reformatted. 3-D [...] 2.6 cm vessel length at and just [id number], similar toprior. Anterior tibial artery: No stenosis. [...] patients who have questions please contactthe health landcare officer that requested your imaging first. Electronically signed by: Geovanna Ray MD, [facility]([phone]), at 07/15/2024 1:13 AM Thony Garcia MD IMG CT ORDERABLES * XR Foot Min 3 views Left (Generic) (07/14/2024 9:11 PM EDT) WORKSTATION ID [id number] RAD Anatomical Region Laterality Modality Foot Left [...] who have questions please contact the health landcare officer that requested your imaging first. ? Electronically signed by: Geovanna Ray MD, [facility] ??([phone]), at 07/14/2024 10:26 PM Narrative 07/14/2024 10:26 [...] patients who have questions please contactthe health landcare officer that requested your imaging first. Electronically signed by: Geovanna Ray MD, [facility]([phone]), at 07/14/2024 10:26 PM Arthur Patel DO IMG DX ORDERABLES * Lactate Whole Blood POC (07/14/2024 7:41 PM EDT) [facility] Lactate, Whole Blood 1.1 0.5 - 2.2 mmol/L 07/14/2024 7:42 PM EDT [facility] Blood ARTERIAL BLOOD / Unknown 07/14/2024 7:41 PM EDT 07/14/2024 7:42 PM EDT Unknown POINT OF CARE TEST O RDERABLES [facility] [place] [address] * (ABNORMAL) Basic Metabolic Panel (07/14/2024 7:39 PM EDT) Pathologist [facility] Glucose 341(H) 65 - 199 mg/dL 07/14/2024 8:13 PM EDT [facility] Comment:Glucose Concentratio n >=200 mg/dL plus symptoms is consistent with Diabetes Mellitus. Blood Urea Nitrogen 6(L) 10 - 20 mg/dL 07/14/2024 8:13 PM [facility] Creatinine 0.53(L) 0.80 - 1.50 mg/dL 07/14/2024 8:13 PM [facility] Sodium 137 135 - 145 mMol/L 07/14/2024 8:13 PM [facility] Potassium 3.7 3.5 - 5.0 mMol/L 07/14/2024 8:13 PM [facility] Chloride 101 98 - 107 mMol/L 07/14/2024 8:13 PM [facility] Carbon Dioxide 23 22 - 31 mMol/L 07/14/2024 8:13 PM [facility] Anion Gap 13 5 - 15 mMol/L 07/14/2024 8:13 PM [facility] Calcium 8.6 8.5 - 10.5 mg/dL 07/14/2024 8:13 PM [facility] Est Glomerular Filtration Rate - Male 122 mL/min/1. 73 m?? 07/14/2024 8:13 PM [facility] Comment: This [...] PM EDT Arthur Patel DO CHEMISTRY ORDERABLES [facility] [place] [address] * (ABNORMAL) CBC (with Diff) (07/14/2024 7:39 PM EDT) White Blood Cell 8.69 4.00 - 9.50 x10(3)/mc L 07/14/2024 7:50 PM EDT [facility] Red Blood Cell 4.01(L) 4.58 - 5.54 x10(6)/mc L 07/14/2024 7:50 PM EDT [facility] Hemoglobin 11.7(L) 13.7 - 16.5 g/dL 07/14/2024 7:50 PM EDT [facility] Hematocrit 34.5(L) 40.5 - 48.5 % 07/14/2024 7:50 PM EDT [facility] Mean Cell Volume 86.0 82.9 - 93.1 fL 07/14/2024 7:50 PM EDT [facility] Mean Cell Hemoglobin 29.2 27.5 - 32.1 pg 07/14/2024 7:50 PM EDT [facility] Mean Cell Hemoglobin Concentration 33.9 32.0 - 35.7 g/dL 07/14/2024 7:50 PM EDT [facility] Platelet 313 145 - 357 x10(3)/mc L 07/14/2024 7:50 PM EDT [facility] Mean Platelet Volume 9.5 7.6 - 12.9 fL 07/14/2024 7:50 PM EDT [facility] RDW Standard Deviation 39.5 36.0 - 45.0 fL 07/14/2024 7:50 PM EDT [facility] RDW coefficient of variation 12.6 11.4 - 13.8 % 07/14/2024 7:50 PM EDT [facility] NRBC% auto 0.0 % 07/14/2024 7:50 PM EDT [facility] NRBC Absolute 0.00 0.00 - 0.00 x10(3)/mc L 07/14/2024 7:50 PM EDT [facility] Neutrophil % 67.3 % 07/14/2024 7:50 PM EDT [facility] Neutrophil Absolute (ANC) - Automated 5.85 1.70 - 6.10 x10(3)/mc L 07/14/2024 7:50 PM EDT [facility] Lymph % 23.4 % 07/14/2024 7:50 PM EDT [facility] Lymph Absolute 2.03 0.90 - 3.20 x10(3)/mc L 07/14/2024 7:50 PM EDT [facility] Monocyte % 6.8 % 07/14/2024 7:50 PM EDT [facility] Monocyte Absolute 0.59 0.30 - 0.90 x10(3)/mc L 07/14/2024 7:50 PM EDT [facility] Eos % 1.7 % 07/14/2024 7:50 PM EDT [facility] Eos Absolute 0.15 0.00 - 0.40 x10(3)/mc L 07/14/2024 7:50 PM EDT [facility] Basophil % 0.3 % 07/14/2024 7:50 PM EDT [facility] Baso Absolute 0.03 0.00 - 0.10 x10(3)/mc L 07/14/2024 7:50 PM EDT [facility] Immature Gran % 0.5 % 7:50 PM EDT [facility] Immature Gran Absolute 0.04 0.00 - 0.04 x10(3)/mc L 07/14/2024 7:50 PM [facility] Blood VENOUS BLOOD SPECIMEN / Unknown Venipuncture / Unknown 07/14/2024 7:39 PM EDT 07/14/2024 7:46 PM EDT [facility] [place] [address] documented in this encounter Visit Diagnoses Not [...] over 4 Hours, Warning Vesicant/Irritant Medication Per assistant food service manager labeling, do not administer or Y-site [...] LPN) 1321 (Given - Provider: Lauren Zavala, DAIVD) 0950 (Given - Provider: Nava Huggins, DAVID) [...] over 4 Hours, Warning Vesicant/Irritant Medication Per assistant food service manager labeling, do not administer or Y-site [...] 0216 (New Bag - Provider: Lindsey Haddad RN)0811 (JAN Hold - Provider: Admin Adt - [...] any scheduled bowel medications ordered, Routine 0857 ([facility] Hold - Provider: Admin Adt - Reason: Transfer to a Procedural area)1206 ([facility] Unhold - Provider: Admin Adt) lactulose [...] scheduled bowel medications ordered. , Routine 0857 ([facility] Hold - Provider: Admin Adt - Reason: Transfer to a Procedural area)1206 ([facility] Unhold - Provider: Admin Adt) lidocaine (Xylocaine) 1% (10 mg/mL) injection 3 mg 3 mg (0.3 mL), Subcutaneous, ONCE PRN, 1 dose, Starting on Wed07/14/24 at 2208, Until Wed07/21/24 at 220, for discomfort with PIV insertion, Routine 0857 ([facility] Hold - Provider: Admin Adt - Reason: Transfer to a Procedural area)1206 ([facility] Unhold - Provider: Admin Adt) magnesium [...] any scheduled bowel medications ordered., Routine 0857 ([facility] Hold - Provider: Admin Adt - Reason: Transfer to a Procedural area)1206 ([facility] Unhold - Provider: Admin Adt) melatonin [...] - Reason: Transfer to a Procedural area)1206 ([facility] Unhold - Provider: Admin Adt) oxyCODONE [...] scheduled bowel medications ordered. , Routine 0857 ([facility] Hold - Provider: Admin Adt - Reason: Transfer to a Procedural area)1206 ([facility] Unhold - Provider: Admin Adt) prochlorperazine (Compazine) (5 mg/mL) injection 10 mg(Linked Group 6) 10 mg, Intravenous, EVERY 6 HOURS PRN, Starting on Wed07/14/24 at 2208, Until Wed07/21/24 at 2209, Nausea, Nausea/Vomiting, If multiple antiemetics are ordered, use ondansetron first. If ondansetron ineffective use prochlorperazine. Only give IV if unable to take PO, Routine 0857 ([facility] Hold - Provider: Admin Adt - Reason: Transfer to a Procedural area)1206 ([facility] Unhold - Provider: Admin Adt) prochlorperazine (Compazine) tablet 10 mg(Linked Group 6) 10 mg, Oral, EVERY 6 HOURS PRN, Starting on Wed07/14/24 at 2208, Until Wed07/21/24 at 2209, Nausea, Nausea/Vomiting, If multiple antiemetics are ordered, use ondansetron first. If ondansetron ineffective use prochlorperazine. PO Preferred. If patient unable to take PO, may give IV if ordered., Routine 0857 ([facility] Hold - Provider: Admin Adt - Reason: Transfer to a Procedural area)1206 ([facility] Unhold - Provider: Admin Adt) sodium chloride [...] Routine documented in this encounter Care Teams Mash Tub Cooker Relationship Specialty Start Date End Date None None PCP - General 05/27/24 09/17/24 documented as of this encounter
--- OUTSIDE RECORDS SUMMARY | 2024-10-31 17:09 | XMS_ITS | Encounter Summary ---
Author Organization [facility] Address [facility] [place] [address] Care Team Providers Care Pit Slagman Name Role Phone None Primary Care Provider Unavailabl e Encounter Details Date Type Department Care Team (Late st Contact Info) Description 05/28/2024 11:55 AM EDT Ancillary Procedure Radiology Library at [facility] [place] [address] Jerry Marin MD [facility] [place] [address] Social History Tobacco Use Types Packs/Day Years Used Date Smoking Tobacco: Every Day Cigarettes 1 25 Started: 12/28/1986; Last attempted to quit: 12/28/2011 Alcohol Use Standard Drinks/Week Comments No 0 (1 standard drink = 0.6 oz pur e alcohol) [facility] Utilities Answer Date Recorded In the past 12 months has e [employer], gas, oil, or water [employer] threatened to shut off services in your [...] in a senior care (including now)? No 05/29/2024 IPV Inpatient Questions [...] PM [place] [phone] Isabeal Hayward APRN [facility] [place] [address] 11/10/2024 10:00 AM EST Office [place] [phone] Dai Whitman APRN 11/21/2024 2:15 PM EST [place] [phone] Dayanara Grover MD [facility] [place] [address] documented as of this encounter Procedures Procedure [...] FILM LIBRARY ORD ERABLES Performing Organization Address City/State/[facility] Co de Phone Number [place], [place] documented in this encounter Visit Diagnoses Not on filedocumented in this encounter Care Teams Pit Slagman Relationship Specialty Start Date End Date None None PCP - General 05/27/24 09/17/24 documented as of this encounter
--- OUTSIDE RECORDS SUMMARY | 2024-10-31 17:09 | XMS_ITS | Encounter Summary ---
Author Organization [facility] [place] [address] Care Team Providers Care Charter And Tour Bus Driver Name Role Phone None Primary Care Provider Unavailabl e Encounter Details Date Type Department Care Team (Latest Contact Info) Description 05/28/2024 Travel Social History Tobacco Use Types Packs/Day Years Used Date Smoking Tobacco: Every Day Cigarettes 1 25 Started: 12/28/1986; Last attempted to quit: 12/28/2011 Alcohol Use Standard Drinks/Week Comments No 0 (1 standard drink = 0.6 oz pur e alcohol) [facility] Utilities Answer Date Recorded In [...] in a correction (including now)? No 05/29/2024 IPV Inpatient Questions [...] PM EST Office [place] [address] Isabela Hayward APRN [facility] [place] [address] 11/10/2024 10:00 AM EST Office [place] [address] Dai Whitman APRN 11/21/2024 2:15 PM EST Office [place] [address] Dayanara Grover MD [facility] [place] [address] documented as of this encounter Visit Diagnoses Not on filedocumented in this encounter Care Teams [employer] And Tour Bus Driver Relationship Specialty Start Date End Date None None PCP - General 05/27/24 09/17/24 documented as of this encounter
--- OUTSIDE RECORDS SUMMARY | 2024-10-31 17:09 | XMS_ITS | Encounter Summary ---
[place] [address] Care Team Providers Care Die Casting Machine Maintainer Name Role Phone Guanako Gusman MD Primary Care Provider [phone] Reason for Visit * Reason Comments Medication Refill Encounter Details Date Type Department Care Team (Late st Contact Info) Description 12/29/2014 Refill Cardiology at [address] [phone] Amy Joshi, JUSTIN [address] [address] Medication Refill Social History Tobacco Use Types [...] PM EST Office Visit [place] [phone] Isabela Hayward APRN [facility] [place] [address] 11/10/2024 10:00 AM EST Office Visit [place] [address] Dai Whitman, RESHMA 11/21/2024 2:15 PM EST Office [place] [address] Dayanara Grover MD [facility] DR ENDOCRINOLOGY DEPT [place], [place] [phone] documented as of this encounter Visit Diagnoses Not on filedocumented in this encounter Care Teams Die Casting Machine Maintainer Relationship Specialty Start Date End Date Guanako Gusman MD [address] [place] [address] PCP - General 02/27/19 05/26/24 documented as of this encounter
--- OUTSIDE RECORDS SUMMARY | 2024-10-31 17:09 | XMS_ITS | Encounter Summary ---
[place] [address] Care Team Providers Care Drier Unloader Name Role Phone None Primary Care Provider Unavailabl e Reason for Referral * Diagnostic Test (Routine) - Authorized Specialty Diagnoses / Procedures Referred By Contac t Referred To Contact Diagnoses Limb ischemia Critical limb ischemia of left lower extremity Procedures Arterial Duplex Leg, Unil Preston Dee MD [facility] [place] [place] [address] [facility] [address] [place] [phone] Referral ID Status Reason Start Date Expiration Date Visits Requested Visits Authorized [id number] Authorized Specialty Service Requested 06/02/2024 06/02/2025 1 1 * Diagnostic Test (Routine) - Authorized Specialty Diagnoses / Procedures Referred By Contac t Referred To Contact Diagnoses Limb ischemia Procedures ELEN, legs, multiple levels Preston Dee MD [facility] [place] [address] [facility] [address] [place] [phone] Referral ID Status Reason Start Date Expiration Date Visits Requested Visits Authorized [id number] Authorized Specialty Service Requested 06/02/2024 06/02/2025 1 1 Reason for Visit * Reason Comments Circulatory Problem * Auth/Cert (Routine) Specialty Diagnoses / Procedures Referred By Contac t Referred To Contact Diagnoses Limb ischemia Critical limb ischemia of left lower extremity calf pain Procedures ER IPI Jerry Marin MD [facility] [place] [address] [facility] Referral ID Status Reason Start Date Expiration Date Visits Re quested Visits Authorized [id number] 1 1 Encounter Details Date Type Department Care Team (Latest Contact Info) Description 05/28/2024 5:40 PM EDT - 06/02/2024 6:45 PM EDT Hospital Encounter Surgical Unit Level 4 [place] [address] Arthur Patel DO [facility] [place] [address] Jerry Marin MD [facility] [place] [address] Limb ischemia; Critical limb ischemia of left lower extremity Discharge Disposition: Home Social History Tobacco Use Types Packs/Day Years Used Date Smoking Tobacco: Every Day Cigarettes 1 25 Started: 12/28/1986; Last attempted to quit: 12/28/2011 Alcohol Use Standard Drinks/Week Comments No 0 (1 standard drink = 0.6 oz pur e alcohol) [facility] Utilities Answer Date Recorded In the past 12 months has e [employer], gas, oil, or water [employer] threatened to shut off services in your [...] substance use, narcolepsy/cataplexy, who initially presented to [facility] ED with c/o 3d acute onset left calf pain. CTA revealed short segment popliteal occlusion with distal reconstitution. On arrival to [facility] he is hemodynamically normal on RA. He [...] up to date on transfer documentation from [facility]. Hospital Course: Geovanna was immediately started [...] 05/30/2024 11:20 AM) Result Value WORKSTATION ID [id number] NM Pharmacologic Stress and Rest Myocardial Perfusion (Exam End: 05/30/2024 10:40 AM) Result Value WORKSTATION ID [id number] Impression 1. There is a small sized, [...] who have questions please contact the health anesthesiologist and critical care that requested your imaging first. Lower Extremity w Contrast Left (Exam End: 05/30/2024 7:27 PM) Result Value WORKSTATION ID [id number] Impression 1. Occlusion of the popliteal artery [...] who have questions please contact the health anesthesiologist and critical care that requested your imaging first. Labs: Recent [...] Left Result Value Ref Range WORKSTATION ID [id number] Rapid Drug Screen, Urine (IVAN Request) Result [...] Negative mcL Appearance UA Clear Clear Spec Dexter UA >=1.030 (A) 1.005 - 1.030 Color [...] Text Report Department: Vascular Surgery Lab Patient: [id number] (GEOVANNA DIXON) CPT: 88567 Referring Physician: JERRY MARIN Phone: Indications: Left [...] thrombosis. Comparison: No previous study in our sc scular lab database for comparison. Electronically Signed [...] 65 - 199 mg/dL MRSA PCR Screen ([facility]/CGP/APD/NL) Specimen: Nasopharyngeal Swab Specimen Type->Nasopharyngeal Swab Result Value Ref Range MRSA Result Negative Negative MRSA Interp Methicillin-resistant Staphylococcus aureus (MRSA) is NOT DETECTED The MRSA target DNA sequences (mec and SCC) were not detected within the acceptable ranges using the Xpert MRSA NxG on the GeneXDel Sol E[place]a Dx System (Cepheid). This suggests the absence of MRSA in the patient specimen submitted for testing. This test is cleared by the U.S. Food and Drug Administration for clinical use and its performance characteristics have been verified by the [facility] at [facility]. This result does not rule out [...] Process Instructions: There is no in-house vascular paint laboratory technician available on weeknights (5pm-8am), weekends, or holidays. IF THIS IS A REQUEST FOR AN EMERGENT STUDY DURING THOSE HOURS, please have the senior provider responsible for the patient page the Vascular Surgery Fellow/Senior Resident collect on delivery clerk to discuss options. Scheduling Instructions: Questions: Indication for study/signs & symptoms: L poplital artery occlusion and PAD Question to be answered: Adequacy of LLE perfusion Preferred location?: [facility] Clinics Arterial Duplex Leg, Unil [VAS32 Custom] 07/03/2024 (Approximate) 01/02/2025 Process Instructions: There is no in-house vascular paint laboratory technician available on weeknights (5pm-8am), weekends, or holidays. IF THIS IS A REQUEST FOR AN EMERGENT STUDY DURING THOSE HOURS, please have the senior provider responsible for the patient page the Vascular Surgery Fellow/Senior Resident collect on delivery clerk to discuss options. Scheduling Instructions: Questions: Indication for study/signs & symptoms: L popliteal occlusion in setting of PAD Question to be answered: adequate arterial flow in lower leg, particularly near site of occlusion Laterality: Left Is there a LEFT LOWER EXTREMITY graft?: No Lower limb left segments: Popliteal Common Femoral Profunda Superficial Femoral Tibial Is there a stent?: No Preferred location?: [facility] Clinics Anticoagulation & Antiplatelet: Anticoagulation: Agent: Xarelto 2.5mg BID Indication: Left popliteal artery occlusion Intended Duration: Indefinitely, will discuss at follow-up appointment Antiplatelet: Agent: Aspirin 81mg Indication: CAD Intended Duration: Indefinitely For questions regarding these medications, please contact Vascular Surgery at [phone]. For issues on weeknights after 5pm and weekends please call [phone] and ask for the Vascular Fellow kuldeep. [...] For any problems or questions please call [phone] For issues on weeknights after 5pm and weekends please call [phone] and ask for the Vascular Fellow collect on delivery clerk. Vascular Surgery Contact Information: For any problems or questions please call [phone] For issues on weeknights after 5pm and weekends please call [phone] and ask for the Vascular Fellow collect on delivery clerk. documented in this encounter Discharge Instructions * [...] to have your insulin doses adjusted. [facility]/[address] [id number] [email or web address] Hours Wed through Wednesday 8:00am to [...] For any problems or questions please call [phone] For issues on weeknights after 5pm and weekends please call [phone] and ask for the Vascular Fellow collect on delivery clerk. * Attachments The following attachments cannot be sent through Care Everywhere. * Direct Oral Anticoagulants: Non-Vitamin K Antagonist (Italian) documented in this encounter Medications at Time [...] substance abuse, narcolepsy/cataplexy, who initially presented to [facility] ED with c/o 3d acute onset left calf pain. CTA revealed short segment popliteal occlusion with distal reconstitution. On arrival to [facility] he is hemodynamically normal on RA. He [...] up to date on transfer documentation from [facility]. Active Hospital Problems Diagnosis Critical limb [...] Imaging: ABIs Department: Vascular Surgery Lab Patient: [id number] (GEOVANNA DIXON) CPT: 55850 Referring Physician: JERRY MARIN Phone: Indications: PAD [...] Cards recs Preston Dee MD 06/01/2024 Pager: [phone] * Anabel Castelan MD - 06/01/2024 11:42 [...] nutritional counseling for which one of our dining service supervisor met with him on 05/31. Glargine has [...] with Dr. Reno. Anabel Castelan MD. PGY4 [facility] Endocrinology 20 minutes of this 35 minute [...] substance abuse, narcolepsy/cataplexy, who initially presented to [facility] ED with c/o 3d acute onset [...] an evening meal which is usually takeout (carbon grinder or pizza). Drinks up to 18 cans of Moun tain Dew/day or 1.5 gallons of milk daily. Bindu Ritter RD * Preston Dee MD - 05/31/2024 12:13 PM EDT Vascular Surgery Progress Note Geovanna Dixon Jr. is a 49 y.o. male with PMH of CAD s/p 2V CABG (2012), DM, HTN, HLD, obesity, substance abuse, narcolepsy/cataplexy, who initially presented to [facility] ED with c/o 3d acute onset left calf pain. CTA revealed short segment popliteal occlusion with distal reconstitution. On arrival to [facility] he is hemodynamically normal on RA. He [...] up to date on transfer documentation from [facility]. Active Hospital Problems Diagnosis Critical limb [...] improved on heparin, but L medial calf steam drier tender. No changes in level of pain [...] Imaging: ABIs Department: Vascular Surgery Lab Patient: [id number] (GEOVANNA DIXON) CPT: 17697 Referring Physician: JERRY MARIN Phone: Indications: PAD [...] Cards recs Preston Dee MD 05/31/2024 Pager: [phone] * Flip, Anabel Wilson MD - 05/31/2024 [...] islet cell antibodies Will place consult for ball worker to further discuss nutritional modifications Patient case discussed with Dr. Reno. Anabel Castelan MD PGY4 [facility] Endocrinology 20 minutes of this 35 minute [...] substance abuse, narcolepsy/cataplexy, who initially presented to [facility] ED with c/o 3d acute onset left calf pain. CTA revealed short segment popliteal occlusion with distal reconstitution. On arrival to [facility] he is hemodynamically normal on RA. He [...] up to date on transfer documentation from [facility]. Active Hospital Problems Diagnosis Critical limb [...] improved on heparin, but L medial calf steam drier tender - HDS, afebrile Objective: Temp: [36.3 [...] Imaging: ABIs Department: Vascular Surgery Lab Patient: [id number] (GEOVANNA DIXON) CPT: 06925 Referring Physician: JERRY MARIN Phone: Indications: PAD [...] Cards recs Preston Dee MD 05/30/2024 Pager: [phone] * Vibha Benson, PEN MAKER - 05/29/2024 11:48 AM EDT Vascular Surgery Progress Note Geovanna Dixon Jr. is a 49 y.o. male with PMH of CAD s/p 2V CABG (2012), DM, HTN, HLD, obesity, substance abuse, narcolepsy/cataplexy, who initially presented to [facility] ED with c/o 3d acute onset left calf pain. CTA revealed short segment popliteal occlusion with distal reconstitution. On arrival to [facility] he is hemodynamically normal on RA. He [...] up to date on transfer documentation from [facility]. Active Hospital Problems Diagnosis Critical limb [...] Microbiology: ABIs Department: Vascular Surgery Lab Patient: [id number] (GEOVANNA DIXON) CPT: 32084 Referring Physician: JERRY MARIN Phone: Indications: PAD [...] ASA Statin Vibha Benson APRN 05/29/2024 Pager: [phone] documented in this encounter H&P Notes * Lili Tapia MD - 05/28/2024 6:33 PM EDT [facility] Department of Vascular Surgery History & Physical Patient Name: Geovanna Dixon Jr. MR#: [id number] : 1975 Admission Date: 05/28/2024 Indication for Admission: LLE ALI History of Present Illness: Geovanna Dixon Jr. is a 49 y.o. male with PMH of CAD s/p 2V CABG (2012), DM, HTN, HLD, obesity, substance abuse, narcolepsy/cataplexy, who initially presented to [facility] ED with c/o 3d acute onset left calf pain. CTA revealed short segment popliteal occlusion with distal reconstitution. On arrival to [facility] he is hemodynamically normal on RA. He [...] up to date on transfer documentation from [facility]. Past Medical History: Past Medical History: [...] VEIN GRAFT performed by INNA TOVAR at [facility] MAIN OR PRO ENDOSCOPY W/VIDEO-ASST VEIN HARVEST, CABG 01/04/2012 ENDOSCOPIC HARVEST VEIN(S) FOR CABG performed by INNA TOVAR at [facility] MAIN OR Home Medications: Current Outpatient [...] substance abuse, narcolepsy/cataplexy, who initially presented to [facility] ED with c/o 3d acute onset [...] MD 05/28/2024 Vascular Surgery Service Team pager #[phone] documented in this encounter ED Notes * [...] the Emergency Department as a transfer from [facility] for left foot ischemia. CT angiogram [...] and Plan: 49 y.o. male transferred from [facility] for popliteal artery occlusion resulting in [...] my separate note. 49-year-old male transfer from [facility] for left foot ischemia with CT angiogram [...] Yes/No STROKE ALERT: Last Known Well Time: [place] Stroke Scale: + / - FAST-ED Score: TRAUMA ALERT: T9 Alert Consult Lowest Documented BP Transporting Service: Time of Departure: ETA: * María Ugalde MD - 05/28/2024 4:41 PM EDT . EM attending brief transfer acceptance note: Geovanna Viet Dixon Jr. is a 49 y.o. who I accepted in transfer from [facility] for rule out left foot ischemia. [...] transfer were discussed María Ugalde MD 05/28/24 2111 documented in this encounter Miscellaneous Notes * [...] substance abuse, narcolepsy/cataplexy, who initially presented to [facility] ED with c/o 3d acute onset [...] therapeutic upon check with AM labs, continues [id number]/hr. Pt continues on Telemetry, noted NSR every [...] pain controlled with scheduled and PRN meds, quality engineer medical device to be found in JAN. Q4 neurovascular [...] Pain controlled with scheduled and PRN meds, quality engineer medical device to be found in JAN. Patient went [...] substance abuse, narcolepsy/cataplexy, who initially presented to [facility] ED with c/o 3d acute onset [...] the original note were not included. [facility] [place] [address] CARDIOLOGY CONSULT NOTE Date of Consultation: 05/29/2024 [...] substance abuse, narcolepsy/cataplexy, who initially presented to [facility] ED with c/o 3d acute onset [...] NSTEMI in 2012, at the time showed PLATINUM AND PALLADIUM KETTLE TENDER of proximal LAD, PLATINUM AND PALLADIUM KETTLE TENDER proximal right, 90% LCX. MARTINEZ-LAD patent and [...] Surgical Unit Level 4 Wing D at [facility] Office Visit from 03/08/2012 in Cardiothoracic [...] substance abuse, narcolepsy/cataplexy, who initially presented to [facility] ED with c/o 3d acute onset left calf pain. CTA revealed short segment popliteal occlusion with distal reconstitution. Cardiology consulted regarding preoperative risk stratification. Vascular surgery plans for surgical revascularization. He has a notable cardiac history listed above, transthoracic echocardiogram notable for mildly reduced LVEF with inferior wall hypokinesis. Thisis explained by his known history of an occluded SVG-RPDA graft with a PLATINUM AND PALLADIUM KETTLE TENDER of his right coronary artery. He has [...] substance abuse, narcolepsy/cataplexy who initially presented to [facility] ED with complaints of 3 days of acute left calf pain. CTA revealed short segment popliteal occlusion with distal reconstitution. He was transferred to [facility] on 05/28/2024 for further management. We are [...] sec Lactate, whole blood, send to lab ([facility]) Result Value Ref Range Lactate WB 1.6 0.5 - 2.2 mmol/L Type and screen ([facility]/BAB[facility]) Result Value Ref Range ABORH Type A [...] Value Ref Range T&S only valid at [facility] Hosp POCT Glucose Result Value Ref Range [...] with distal reconstitution on CTA. While at [facility] patient found to have blood glucose approx 490-500. He was transferred to [facility] on 05/28/2024 for further management. We are [...] diabetes education as well as nutritional counseling longterm diabetes care: Medications - Outpatient treatment regimen recommendations pending based on the hospital course. Monitoring - continue BG tid ac & hs Diet - low fat/low carb diet Exercise - weight-bearing exercise 30 min/day, as tolerated Provider - patient requires establishment with new PCP or biazzi nitrator operator for continued medication management Thank you for allowing us to provide care for your patient. Anabel Castelan MD [facility] Endocrinology Associated attestation - Karen Reno [...] 180 days) Any patient receiving care in [place] must abide by [place] law. The hierarchy [...] The agent with financial power of attorney at law or a conservator appointed in accordance with [...] has the electric, gas, oil, or water [employer] threatened to shut off services in your [...] Current DME: none Home Address confirmed as: [address] [place] [address] Social & Family Supports: All names listed [...] not?: Costs Prescription Coverage: Yes Preferred Pharmacy: [id number] - [place], [place] - [address] [facility] [address] [facility] [address] Status: Patient is a : No Primary Care Provider listed: Guanako Gusman MD (Inactive) [phone] Patient/Caregiver Goals of Treatment: How long will [...] care as indicated. DENISSE Astorga Care Management #1994 * Plan of Care - Guanako Madison [...] Appropriate) * Consult Note - Allen Orona, [facility] - 05/29/2024 4:00 AM EDT [...] PM EST Office [place] [address] Isabela Hayward, RESH[facility] [place] [address] 11/10/2024 10:00 AM EST Office [place] [address] Dai Whitman APRN 11/21/2024 2:15 PM EST Office [place] [address] Dayanara Grover MD [facility] [place] [address] documented as of this encounter Procedures Procedure [...] Glucose, POC 203(H) 65 - 199 mg/dL [facility] Comment: Supplemental ranges: <140 mg/dL before meals <180 mg/dL all other times of the day Blood 06/02/2024 4:12 PM EDT 06/02/2024 4:12 PM EDT Jerry Marin MD POINT OF CARE TEST O RDERABLES [facility] [place] [address] * (ABNORMAL) POCT Glucose (06/02/2024 1:47 PM EDT) Glucose, POC 306(H) 65 - 199 mg/dL [facility] Comment: Supplemental ranges: <140 mg/dL before meals <180 mg/dL all other times of the day Blood 06/02/2024 1:47 PM EDT 06/02/2024 1:47 PM EDT Jerry Marin MD POINT OF CARE TEST O GILDA Performing Organization Address [facility] Co de Phone Number [facility] [place] [address] * (ABNORMAL) POCT Glucose (06/02/2024 11:28 AM EDT) Glucose, POC 270(H) 65 - 199 mg/dL [facility] Comment: Supplemental ranges: <140 mg/dL before meals <180 mg/dL all other times of the day Blood 06/02/2024 11:2 8 AM EDT 06/02/2024 11:28 AM EDT Jerry Marin MD POINT OF CARE TEST O GILDA Performing Organization Address [facility] de Phone Number [facility] [place] [address] * (ABNORMAL) POCT Glucose (06/02/2024 8:59 AM EDT) Glucose, POC 299(H) 65 - 199 mg/dL [facility] Comment: Supplemental ranges: <140 mg/dL before meals <180 mg/dL all other times of the day Blood 06/02/2024 8:59 AM EDT 06/02/2024 8:59 AM EDT Jerry Marin MD POINT OF CARE TEST O GILDA Performing Organization Address [facility] de Phone Number [facility] [place] [address] * (ABNORMAL) Differential, Automated (06/02/2024 1:52 AM EDT) Neutrophil % 75.2 % [facility] Neutrophil Absolute 9.62(H) 1.70 - 6.10 x10(3)/mc L [facility] Lymph % 12.7 % [facility] Lymphocytes Abs 1.6 0.9 - 3.2 x10(3)/mc L [facility] Monocyte % 7.8 % [facility] Monocyte Abs 1.0(H) 0.3 - 0.9 x10(3)/[facility] Eos % 1.1 % [facility] Eosinophils Abs 0.1 0.0 - 0.4 x10(3)/[facility] Basophil % 0.9 % [facility] Baso Absolute 0.1 0.0 - 0.1 x10(3)/[facility] Immature Gran % 2.30 % [facility] Comment: Immature granulocytes(IG's)percentage and absolute count will include metamyelocytes, myelocytes, and promyelocytes. Blood smears from CBCs yielding IG's will be scanned manually for concordance. If this scan disagrees with the automated IG or if promyelocytes are noted, a manual differential will be performed. Immature Gran Absolute 0.29(H) 0.00 - 0.04 x10(3)/[facility] Blood 06/02/2024 1:52 AM EDT 06/02/2024 2:06 AM EDT Narrative Resulting Agency Comment Spec In Lab Lili Tapia MD HEMATOLOGY ORDERA BLES [facility] [place] [address] * (ABNORMAL) Hemogram (06/02/2024 1:52 AM EDT) White Blood Cell 12.8(H) 4.0 - 9.5 x10(3)/[facility] Red Blood Cell 4.56(L) 4.58 - 5.54 x10(6)/[facility] Hemoglobin 13.7 13.7 - 16.5 g/dL [facility] Hematocrit 39.0(L) 40.5 - 48.5 % [facility] Mean Cell Volume 85.5 82.9 - 93.1 fL [facility] Mean Cell Hemoglobin 30.0 27.5 - 32.1 pg [facility] Mean Cell Hemoglobin Concentration 35.1 32.0 - 35.7 g/dL [facility] Platelet 283 145 - 357 x10(3)/mc L [facility] RDW Standard Deviation 35.7(L) 36.0 - 45.0 fL [facility] RDW coefficient of variation 11.6 11.4 - 13.8 % [facility] Mean Platelet Volume 10.2 7.6 - 12.9 fL [facility] NRBC% auto 0.0 % [facility] NRBC Absolute 0.000 0.000 - 0.000 x10(3)/mc L [facility] Blood 06/02/2024 1:52 AM EDT 06/02/2024 2:06 AM EDT Narrative Resulting Agency Comment Spec In Lab Lili aTpia MD HEMATOLOGY ORDERA BLES [facility] [place] [address] * Heparin (unfractionated) Level (06/02/2024 1:52 AM [...] DO HEMATOLOGY ORDERABLE S Performing Organization Address City/[facility]/ZIP Co de Phone Number [facility] [place] [address] * Phosphorus (06/02/2024 1:52 AM EDT) Phosphorus 3.3 2.5 - 4.5 mg/dL [facility] Blood 06/02/2024 1:52 AM EDT 06/02/2024 2:06 AM EDT Narrative Resulting Agency Comment Spec In Lab Jerry Marin MD CHEMISTRY ORDERABLES Performing Organization Address [facility] Co de Phone Number [facility] [place] [address] * Magnesium (06/02/2024 1:52 AM EDT) Magnesium 0.81 0.69 - 1.07 mmol/L [facility] Blood 06/02/2024 1:52 AM EDT 06/02/2024 2:06 AM EDT Narrative Resulting Agency Comment Spec In Lab Jerry Marin MD CHEMISTRY ORDERABLES Performing Organization Address [facility]/ZIP Co de Phone Number [facility] [place] [address] * (ABNORMAL) Basic Metabolic Panel (non-fasting) (06/02/2024 1:52 AM EDT) Glucose 165 65 - 199 mg/dL [facility] Comment:Diabetes: >=200 mg/d L plus symptoms Blood Urea Nitrogen 7(L) 10 - 20 mg/dL [facility] Creatinine 0.52(L) 0.80 - 1.50 mg/dL [facility] Sodium 137 135 - 145 mmol/L [facility] Potassium 4.0 3.5 - 5.0 mmol/L [facility] Comment: Please note: ??Patients with WBC >100,000 may have falsely elevated Potassium levels. ??For accurate Potassium quantification in these patients send serum separator tube (gold top) for subsequent determinations. ??Contact the Clinical Chemistry Laboratory if there are any questions. Chloride 102 98 - 107 mmol/L [facility] Carbon Dioxide 23 22 - 31 mmol/L [facility] Anion Gap 12 5 - 15 mmol/L [facility] Calcium 9.5 8.5 - 10.5 mg/dL [facility] Est Glomerular Filtration Rate 123 >=60 mL/min/1. 73 m?? [facility] Comment: [...] In Lab Jerry Marin MD CHEMISTRY ORDERABLES [facility] [place] [address] * (ABNORMAL) POCT Glucose (06/01/2024 7:45 PM EDT) [facility] Signature Glucose, POC 225(H) 65 - 199 mg/dL [facility] Comment: Supplemental ranges: <140 mg/dL before meals <180 mg/dL all other times of the day Blood 06/01/2024 7:45 PM EDT 06/01/2024 7:45 PM EDT Jerry Marin MD POINT OF CARE TEST O RDERAHERNANDEZ Performing Organization Address City/[facility]/ZIP Co de Phone Number [facility] [place] [address] * POCT Glucose (06/01/2024 4:45 PM EDT) Glucose, POC 178 65 - 199 mg/dL [facility] Comment: Supplemental ranges: <140 mg/dL before meals <180 mg/dL all other times of the day Blood 06/01/2024 4:45 PM EDT 06/01/2024 4:45 PM EDT Jerry Marin MD POINT OF CARE TEST O GILDA Performing Organization Address [facility] Co de Phone Number [facility] [place] [address] * POCT Glucose (06/01/2024 2:32 PM EDT) Glucose, POC 195 65 - 199 mg/dL [facility] Comment: Supplemental ranges: <140 mg/dL before meals <180 mg/dL all other times of the day Blood 06/01/2024 2:32 PM EDT 06/01/2024 2:32 PM EDT Jerry Marin MD POINT OF CARE TEST O GILDA Performing Organization Address [facility]/ZIP Co de Phone Number [facility] [place] [address] * MRSA PCR Screen ([facility]/CGP/APD/NLH) (06/01/2024 1:42 PM EDT) [facility] MRSA PCR Negative Negative [facility] MRSA (Interp) Methicillin-resist ant Staphylococcus aureus (MRSA) is NOT DETECTED The MRSA target DNA sequences (mec and SCC) were not detected within the acceptable ranges using the Xpert MRSA NxG on the GeneXpert Dx System (Dolosys). This suggests the absence of MRSA in the patient specimen submitted for testing. This test is cleared by the U.S. Food and Drug Administration for clinical use and its performance characteristics have been verified by the [facility] at [facility]. This result does not rule out the presence of any other organisms. Rare false negative results may occur if MRSA is present at low concentrations with much higher concentrations of other organisms including MRSE or S. aureus with an empty SCC cassette. [facility] Comment: [VERIFIED DATE]06.02.24 Verified By:Gloria Jonas (Electronic Signature) Nasopharyngeal Swab 06/01/20 1:42 PM EDT 06/01/2024 3:11 PM EDT Comment:Specimen Type->Nasop haryngeal Swab Narrative Resulting Agency Comment Spec In Lab Jerry Marin MD MOLECULAR ORDERABLES Performing Organization Address [facility] Co de Phone Number [facility] [place] [address] * (ABNORMAL) POCT Glucose (06/01/2024 11:49 AM EDT) Glucose, POC 264(H) 65 - 199 mg/dL [facility] Comment: Supplemental ranges: <140 mg/dL before meals <180 mg/dL all other times of the day Blood 06/01/2024 11:4 9 AM EDT 06/01/2024 11:49 AM EDT Jerry Marin MD POINT OF CARE TEST O RDERABLES Performing Organization Address [facility]/ZIP Co de Phone Number [facility] [place] [address] * (ABNORMAL) POCT Glucose (06/01/2024 8:17 AM EDT) Glucose, POC 288(H) 65 - 199 mg/dL [facility] Comment: Supplemental ranges: <140 mg/dL before meals <180 mg/dL all other times of the day Blood 06/01/2024 8:17 AM EDT 06/01/2024 8:17 AM EDT Jerry Marin MD POINT OF CARE TEST O RDERAHERNANDEZ Performing Organization Address [facility] Co de Phone Number [facility] [place] [address] * (ABNORMAL) POCT Glucose (06/01/2024 8:13 AM EDT) Glucose, POC 358(H) 65 - 199 mg/dL [facility] Comment: Supplemental ranges: <140 mg/dL before meals <180 mg/dL all other times of the day Blood 06/01/2024 8:13 AM EDT 06/01/2024 8:13 AM EDT Jerry Marin MD POINT OF CARE TEST O DIMITRIERAHERNANDEZ Performing Organization Address [facility] Co de Phone Number [facility] [place] [address] * (ABNORMAL) POCT Glucose (06/01/2024 6:43 AM EDT) Glucose, POC 296(H) 65 - 199 mg/dL [facility] Comment: Supplemental ranges: <140 mg/dL before meals <180 mg/dL all other times of the day Blood 06/01/2024 6:43 AM EDT 06/01/2024 6:43 AM EDT Jerry Marin MD POINT OF CARE TEST O RDERAHERNANDEZ Performing Organization Address [facility] Co de Phone Number [facility] [place] [address] * (ABNORMAL) Differential, Automated (06/01/2024 6:12 AM EDT) Neutrophil % 73.0 % [facility] Neutrophil Absolute 8.65(H) 1.70 - 6.10 x10(3)/mc L [facility] Lymph % 15.2 % [facility] Lymphocytes Abs 1.8 0.9 - 3.2 x10(3)/mc L [facility] Monocyte % 7.7 % [facility] Monocyte Abs 0.9 0.3 - 0.9 x10(3)/mc L [facility] Eos % 1.4 % [facility] Eosinophils Abs 0.2 0.0 - 0.4 x10(3)/ L [facility] Basophil % 1.2 % [facility] Baso Absolute 0.1 0.0 - 0.1 x10(3)/ L [facility] Immature Gran % 1.50 % [facility] Comment: Immature granulocytes(IG's)percentage and absolute count will include metamyelocytes, myelocytes, and promyelocytes. Blood smears from CBCs yielding IG's will be scanned manually for concordance. If this scan disagrees with the automated IG or if promyelocytes are noted, a manual differential will be performed. Immature Gran Absolute 0.18(H) 0.00 - 0.04 x10(3)/ L [facility] Blood 06/01/2024 6:12 AM EDT 06/01/2024 6:43 AM EDT Narrative Resulting Agency Comment Spec In Lab Lili Tapia MD HEMATOLOGY ORDERA BLES Performing Organization Address City/State/[facility] Co de Phone Number [facility] [place] [address] * (ABNORMAL) Hemogram (06/01/2024 6:12 AM EDT) White Blood Cell 11.8(H) 4.0 - 9.5 x10(3)/ L [facility] Red Blood Cell 4.66 4.58 - 5.54 x10(6)/ L [facility] Hemoglobin 14.1 13.7 - 16.5 g/dL [facility] Hematocrit 39.6(L) 40.5 - 48.5 % [facility] Mean Cell Volume 85.0 82.9 - 93.1 fL [facility] Mean Cell Hemoglobin 30.3 27.5 - 32.1 pg [facility] Mean Cell Hemoglobin Concentration 35.6 32.0 - 35.7 g/dL [facility] Platelet 264 145 - 357 x10(3)/mc L [facility] RDW Standard Deviation 35.0(L) 36.0 - 45.0 [facility] RDW coefficient of variation 11.4 11.4 - 13.8 % [facility] Mean Platelet Volume 10.8 7.6 - 12.9 fL [facility] NRBC% auto 0.0 % [facility] NRBC Absolute 0.000 0.000 - 0.000 x10(3)/mc L [facility] Blood 06/01/2024 6:12 AM EDT 06/01/2024 6:43 AM EDT Narrative Resulting Agency Comment Spec In Lab Lili Tapia MD HEMATOLOGY ORDERA BLES Performing Organization Address City/[facility]/ZIP Co de Phone Number [facility] [place] [address] * Phosphorus (06/01/2024 6:12 AM EDT) Phosphorus 3.2 2.5 - 4.5 mg/dL [facility] Blood 06/01/2024 6:12 AM EDT 06/01/2024 6:43 AM EDT Narrative Resulting Agency Comment Spec In Lab Jerry Marin MD CHEMISTRY ORDERABLES Performing Organization Address [facility] Co de Phone Number [facility] [place] [address] * Magnesium (06/01/2024 6:12 AM EDT) Magnesium 0.87 0.69 - 1.07 mmol/L [facility] Blood 06/01/2024 6:12 AM EDT 06/01/2024 6:43 AM EDT Narrative Resulting Agency Comment Spec In Lab Jerry Marin MD CHEMISTRY ORDERABLES [facility] [place] [address] * (ABNORMAL) Basic Metabolic Panel (non-fasting) (06/01/2024 6:12 AM EDT) Glucose 300(H) 65 - 199 mg/dL [facility] Comment:Diabetes: >=200 mg/d L plus symptoms Blood Urea Nitrogen 7(L) 10 - 20 mg/dL [facility] Creatinine 0.54(L) 0.80 - 1.50 mg/dL [facility] Sodium 135 135 - 145 mmol/L [facility] Potassium 4.1 3.5 - 5.0 mmol/L [facility] Comment: Please note: ??Patients with WBC >100,000 may have falsely elevated Potassium levels. ??For accurate Potassium quantification in these patients send serum separator tube (gold top) for subsequent determinations. ??Contact the Clinical Chemistry Laboratory if there are any questions. Chloride 102 98 - 107 mmol/L [facility] Carbon Dioxide 22 22 - 31 mmol/L [facility] Anion Gap 11 5 - 15 mmol/L [facility] Calcium 9.2 8.5 - 10.5 mg/dL [facility] Est Glomerular Filtration Rate 121 >=60 mL/min/1. 73 m?? [facility] Comment: [...] Marin MD CHEMISTRY ORDERABLES Performing Organization Address City/[facility]/ZIP Co de Phone Number [facility] [place] [address] * POCT Glucose (05/31/2024 11:26 PM EDT) Glucose, POC 168 65 - 199 mg/dL [facility] Comment: Supplemental ranges: <140 mg/dL before meals <180 mg/dL all other times of the day Blood 05/31/2024 11:2 6 PM EDT 05/31/2024 11:26 PM EDT Jerry Marin MD POINT OF CARE TEST O RDERABLES Performing Organization Address [facility] Co de Phone Number [facility] [place] [address] * (ABNORMAL) POCT Glucose (05/31/2024 8:28 PM EDT) Glucose, POC 248(H) 65 - 199 mg/dL [facility] Comment: Supplemental ranges: <140 mg/dL before meals <180 mg/dL all other times of the day Blood 05/31/2024 8:28 PM EDT 05/31/2024 8:28 PM EDT Jerry Marin MD POINT OF CARE TEST O RDERABLES Performing Organization Address [facility] Co de Phone Number [facility] [place] [address] * POCT Glucose (05/31/2024 4:31 PM EDT) Glucose, POC 187 65 - 199 mg/dL [facility] Comment: Supplemental ranges: <140 mg/dL before meals <180 mg/dL all other times of the day Blood 05/31/2024 4:31 PM EDT 05/31/2024 4:31 PM EDT Jerry Marin MD POINT OF CARE TEST O GILDA Performing Organization Address City/[facility]/ZIP Co de Phone Number [facility] [place] [address] * (ABNORMAL) POCT Glucose (05/31/2024 12:43 PM EDT) Glucose, POC 200(H) 65 - 199 mg/dL [facility] Comment: Supplemental ranges: <140 mg/dL before meals <180 mg/dL all other times of the day Blood 05/31/2024 12:4 3 PM EDT 05/31/2024 12:43 PM EDT Jerry Marin MD POINT OF CARE TEST O GILDA Performing Organization Address [facility] Co de Phone Number [facility] [place] [address] * (ABNORMAL) POCT Glucose (05/31/2024 8:19 AM EDT) Glucose, POC 232(H) 65 - 199 mg/dL [facility] Comment: Supplemental ranges: <140 mg/dL before meals <180 mg/dL all other times of the day Blood 05/31/2024 8:19 AM EDT 05/31/2024 8:19 AM EDT Jerry Marin MD POINT OF CARE TEST O GILDA Performing Organization Address City/[facility] Co de Phone Number [facility] [place] [address] * Duplex for DVT, Leg, Unilat (05/31/2024 7:35 AM EDT) VB Text Report Department: Vascular Surgery Lab Patient: [id number] (GEOVANNA DIXON) CPT: 92849 Referring Physician: JERRY MARIN ?? Phone: Indications: [...] Marin MD VASCULAR ORDERABLES Performing Organization Address City/[facility]/ZIP Co de Phone Number [facility] * (ABNORMAL) POCT Glucose (05/31/2024 6:53 AM EDT) [facility] Glucose, POC 261(H) 65 - 199 mg/dL [facility] Comment: Supplemental ranges: <140 mg/dL before meals <180 mg/dL all other times of the day Blood 05/31/2024 6:53 AM EDT 05/31/2024 6:53 AM EDT Jerry Marin MD POINT OF CARE TEST O RDERABLES Performing Organization Address City/[facility]/ZIP Co de Phone Number [facility] [place] [address] * (ABNORMAL) Differential, Automated (05/31/2024 5:26 AM EDT) Neutrophil % 75.1 % [facility] Neutrophil Absolute 9.03(H) 1.70 - 6.10 x10(3)/[facility] Lymph % 14.4 % [facility] Lymphocytes Abs 1.7 0.9 - 3.2 x10(3)/[facility] Monocyte % 6.2 % [facility] Monocyte Abs 0.8 0.3 - 0.9 x10(3)/[facility] Eos % 2.1 % [facility] Eosinophils Abs 0.2 0.0 - 0.4 x10(3)/[facility] Basophil % 1.0 % [facility] Baso Absolute 0.1 0.0 - 0.1 x10(3)/[facility] Immature Gran % 1.20 % [facility] Comment: Immature granulocytes(IG's)percentage and absolute count will include metamyelocytes, myelocytes, and promyelocytes. Blood smears from CBCs yielding IG's will be scanned manually for concordance. If this scan disagrees with the automated IG or if promyelocytes are noted, a manual differential will be performed. Immature Gran Absolute 0.14(H) 0.00 - 0.04 x10(3)/[facility] Blood 05/31/2024 5:26 AM EDT 05/31/2024 5:58 AM EDT Narrative Resulting Agency Comment Spec In Lab Lili Tapia MD HEMATOLOGY ORDERA BLES [facility] [place] [address] * (ABNORMAL) Hemogram (05/31/2024 5:26 AM EDT) White Blood Cell 12.0(H) 4.0 - 9.5 x10(3)/[facility] Red Blood Cell 4.66 4.58 - 5.54 x10(6)/[facility] Hemoglobin 13.6(L) 13.7 - 16.5 g/dL [facility] Hematocrit 39.1(L) 40.5 - 48.5 % [facility] Mean Cell Volume 83.9 82.9 - 93.1 fL [facility] Mean Cell Hemoglobin 29.2 27.5 - 32.1 pg [facility] Mean Cell Hemoglobin Concentration 34.8 32.0 - 35.7 g/dL [facility] Platelet 246 145 - 357 x10(3)/mc L [facility] RDW Standard Deviation 35.0(L) 36.0 - 45.0 fL [facility] RDW coefficient of variation 11.5 11.4 - 13.8 % [facility] Mean Platelet Volume 11.9 7.6 - 12.9 fL [facility] NRBC% auto 0.0 % [facility] NRBC Absolute 0.000 0.000 - 0.000 x10(3)/mc L [facility] Blood 05/31/2024 5:26 AM EDT 05/31/2024 5:58 AM EDT Narrative Resulting Agency Comment Spec In Lab Lili Tapia MD HEMATOLOGY ORDERA BLES [facility] [place] [address] * Heparin (unfractionated) Level (05/31/2024 5:26 AM [...] DO HEMATOLOGY ORDERABLE S Performing Organization Address City/[facility]/ZIP Co de Phone Number [facility] [place] [address] * Phosphorus (05/31/2024 5:26 AM EDT) Pathologist [facility] Phosphorus 3.1 2.5 - 4.5 mg/dL [facility] Blood 05/31/2024 5:26 AM EDT 05/31/2024 5:58 AM EDT Narrative Resulting Agency Comment Spec In Lab Jerry Marin MD CHEMISTRY ORDERABLES Performing Organization Address [facility] Co de Phone Number [facility] [place] [address] * Magnesium (05/31/2024 5:26 AM EDT) Magnesium 0.83 0.69 - 1.07 mmol/L [facility] Blood 05/31/2024 5:26 AM EDT 05/31/2024 5:58 AM EDT Narrative Resulting Agency Comment Spec In Lab Jerry Marin MD CHEMISTRY ORDERABLES Performing Organization Address [facility] Co de Phone Number [facility] [place] [address] * (ABNORMAL) Basic Metabolic Panel (non-fasting) (05/31/2024 5:26 AM EDT) Glucose 273(H) 65 - 199 mg/dL [facility] Comment:Diabetes: >=200 mg/d L plus symptoms Blood Urea Nitrogen 7(L) 10 - 20 mg/dL [facility] Creatinine 0.55(L) 0.80 - 1.50 mg/dL [facility] Sodium 133(L) 135 - 145 mmol/L [facility] Potassium 3.9 3.5 - 5.0 mmol/L [facility] Comment: Please note: ??Patients with WBC >100,000 may have falsely elevated Potassium levels. ??For accurate Potassium quantification in these patients send serum separator tube (gold top) for subsequent determinations. ??Contact the Clinical Chemistry Laboratory if there are any questions. Chloride 99 98 - 107 mmol/L [facility] Carbon Dioxide 22 22 - 31 mmol/L [facility] Anion Gap 12 5 - 15 mmol/L [facility] Calcium 9.0 8.5 - 10.5 mg/dL [facility] Est Glomerular Filtration Rate 121 >=60 mL/min/1. 73 m?? [facility] Comment: [...] In Lab Jerry Marin MD CHEMISTRY ORDERABLES [facility] [place] [address] * LDL Cholesterol, Direct (05/31/2024 5:26 AM EDT) LDL Cholesterol, Direct 86 mg/dL [facility] Comment: Desirable: ? <100 mg/dL Above Desirable: 100-129 mg/dL Borderline High: 130-159 mg/dL High: ?160-189 mg/dL Very High: ? >lw=196 mg/dL If not reaching LDL goals on [...] In Lab Jerry Marin MD CHEMISTRY ORDERABLES [facility] [place] [address] * HDL/Cholesterol Profile (05/31/2024 5:26 AM EDT) Cholesterol, Total 156 mg/dL [facility] Comment: Desirable: ? <200 mg/dL Borderline High: 200-239 mg/dL Higher: ?>zw=070 mg/dL HDL Cholesterol 33 mg/dL [facility] Comment: Females: High Risk: <50 mg/dL Males: High Risk: <40 mg/dL Lipid Interpretation See Note [facility] Comment: It is [...] ACC/AHA Guidelines (most recently Johann et al. [facility] 08/11/22): For individuals with atherosclerotic cardiovascular disease (ASCVD)or LDL >to=800 mg/dL, use a high-intensity statin (40-80 mg [...] In Lab Jerry Marin [place] [address] * (ABNORMAL) Rapid Drug Screen w/o Confirmation, Urine (05/31/2024 5:00 AM EDT) [facility] Barbiturates Screen, Urine None Detected None Detected [facility] Comment: The barbiturate [...] Benzodiazepines Screen, Urine None Detected None Detected [facility] Comment: The benzodiazepines [...] Cocaine Screen, Urine Presumptive Pos(A) None Detected [facility] Comment: The cocaine [...] Metabolites Screen, Urine None Detected None Detected [facility] Comment: The methadone [...] Opiate Screen, Urine None Detected None Detected [facility] Comment: The opiates [...] Cannabinoid Screen, Urine None Detected None Detected [facility] Comment: The marijuana metabolites screen detects the THC metabolite (74-qes-9-carboxy-delta 9-THC) at concentrations >20 ng/mL. A ? Presumptive Positive? result indicates that the screening result was positive but has not yet been confirmed by a highly-specific method. As with any screen, occasional false positive results from cross-reacting substances may occur. Not for Medico-Legal Purposes. Oxycodone Screen, Urine Presumptive Pos(A) None Detected [facility] Comment: The oxycodone screen detects oxycodone and oxymorphone at concentrations >100 ng/mL. A ? Presumptive Positive? result indicates that the screening result was positive but has not yet been confirmed by a highly-specific method. As with any screen, occasional false positive results from cross-reacting substances may occur. Not for Medico-Legal Purposes. Buprenorphine Screen, Urine None Detected None Detected [facility] Comment: The buprenorphine [...] of this test were determined by [facility] in accordance with CLIA requirements. This laboratory is qualified under CLIA to perform high-complexity testing. Fentanyl Screen, Urine None Detected None Detected [facility] Comment: The fentanyl [...] this test were determined by [facility] in accordance with CLIA requirements. This laboratory is qualified under CLIA to perform high-complexity testing. Tricyclics Screen, Urine Presumptive Pos(A) None Detected [facility] Comment: The tricyclics [...] of this test were determined by [facility] in accordance with CLIA requirements. This laboratory is qualified under CLIA to perform high-complexity testing. Ethanol Screen, Urine None Detected None Detected [facility] Comment:This urine ethanol a ssay detects ethanol at concentrations >/= 100 mg/L. Amphetamines Screen, Urine None Detected None Detected [facility] Comment: The amphetamine screen detects d-amphetamine and d-methamphetamine at concentrations >300 ng/mL. A ? Presumptive Positive? result indicates that the screening result was positive but has not yet been confirmed by a highly-specific method. As with any screen, occasional false positive results from cross-reacting substances may occur. Not for Medico-Legal Purposes. Creatinine Specimen Validity Test, Urine 58 >=20 mg/dL [facility] Chromate Specimen Validity Test, Urine <2.0 <=49.9 mg/L [facility] Nitrite Specimen Validity Test, Urine <50 <=499 mg/L [facility] Oxidant Specimen Validity Test, Urine 10 <=199 mg/L [facility] pH Specimen Validity Test, Urine 6.8 3.0 - 10.9 [facility] Adulterants Screen, Urine None Detected None Detected [facility] Comment:No adulteration of t his urine sample was detected. Urine 05/31/2024 5:00 AM EDT 05/31/2024 5:31 AM EDT Narrative Resulting Agency Comment Spec In Lab Rubio Grimaldo MD CHEMISTRY ORDERABL ES [facility] [place] [address] * (ABNORMAL) Urinalysis without microscopic (05/31/2024 5:00 AM EDT) Glucose, Urine Dipstick >=1000(Criti masoud) Negative mg/dL [facility] Comment: Urinalysis result NOT critical without a combination of Glucose greater than or equal to 500 mg/dL AND Ketones greater than or equal to 80 mg/dL Protein, Urine Dipstick Negative Negative mg/dL [facility] Bilirubin, Urine Dipstick Negative Negative mg/dL [facility] Comment: Clinical correlation required for positive Urine Bilirubin results as false positive may occur with some drugs and drug related products. If a false positive is suspected a serum total bilirubin should be considered if clinically indicated. Urobilinogen, Urine Dipstick Normal Normal mg/dL [facility] pH, Urn (dipstick) 7.0 5.0 - 8.0 [facility] Blood, Urine Dipstick Negative Negative mg/dL [facility] Ketone, Urine Dipstick Negative Negative mg/dL [facility] Nitrite, Urine Dipstick Negative Negative [facility] Leukocytes, Urine Dipstick Negative Negative [facility] Appearance, Urine Dipstick Clear Clear [facility] Specific Dexter Urine Automated >=1.030(A) 1.005 - 1.030 [facility] Color, Urine Dipstick Yellow Yellow [facility] Urine 05/31/2024 5:00 AM EDT 05/31/2024 5:31 AM EDT Narrative Resulting Agency Comment Spec In Lab Jerry Marin MD URINE ORDERABLES [facility] [place] [address] * Rapid Drug Screen, Urine (IVAN Request) (05/31/2024 5:00 AM EDT) IVAN Conf Requested No [facility] IVAN Requested See Comment [facility] Comment:Refer to Rapid Drug Screen w/o Confirmation, Urine for results. Urine 05/31/2024 5:00 AM EDT 05/31/2024 5:31 AM EDT Narrative Resulting Agency Comment Spec In Lab Jerry Marin MD URINE ORDERABLES [facility] [place] [address] * CT Lower Extremity w Contrast Left (05/30/2024 7:27 PM EDT) WORKSTATION ID [id number] [facility] RAD Anatomical Region Laterality Modality Hip, [...] who have questions please contact the health anesthesiologist and critical care that requested your imaging first. ? [...] patients who have questions please contactthe health anesthesiologist and critical care that requested your imaging first. Jerry Marin MD IMG CT ORDERABLES * POCT Glucose (05/30/2024 5:41 PM EDT) Glucose, POC 164 65 - 199 mg/dL [facility] Comment: Supplemental ranges: <140 mg/dL before meals <180 mg/dL all other times of the day Blood 05/30/2024 5:41 PM EDT 05/30/2024 5:41 PM EDT Jerry Mairn MD POINT OF CARE TEST O RDERABLES Performing Organization Address City/[facility]/ZIP Co de Phone Number [facility] [place] [address] * Phosphorus (05/30/2024 4:47 PM EDT) [facility] Phosphorus 3.8 2.5 - 4.5 mg/dL [facility] Blood 05/30/2024 4:47 PM EDT 05/30/2024 4:58 PM EDT Narrative Resulting Agency Comment Spec In Lab Jerry Marin MD CHEMISTRY ORDERABLES Performing Organization Address [facility] Co de Phone Number [facility] [place] [address] * Magnesium (05/30/2024 4:47 PM EDT) [facility] Magnesium 0.86 0.69 - 1.07 mmol/L [facility] Blood 05/30/2024 4:47 PM EDT 05/30/2024 4:58 PM EDT Narrative Resulting Agency Comment Spec In Lab Jerry Marin MD CHEMISTRY ORDERABLES Performing Organization Address [facility] Co de Phone Number [facility] [place] [address] * (ABNORMAL) Basic Metabolic Panel (non-fasting) (05/30/2024 4:47 PM EDT) Glucose 192 65 - 199 mg/dL [facility] Comment:Diabetes: >=200 mg/d L plus symptoms Blood Urea Nitrogen 7(L) 10 - 20 mg/dL [facility] Creatinine 0.58(L) 0.80 - 1.50 mg/dL [facility] Sodium 134(L) 135 - 145 mmol/L [facility] Potassium 3.9 3.5 - 5.0 mmol/L [facility] Comment: Please note: ??Patients with WBC >100,000 may have falsely elevated Potassium levels. ??For accurate Potassium quantification in these patients send serum separator tube (gold top) for subsequent determinations. ??Contact the Clinical Chemistry Laboratory if there are any questions. Chloride 99 98 - 107 mmol/L [facility] Carbon Dioxide 24 22 - 31 mmol/L [facility] Anion Gap 11 5 - 15 mmol/L [facility] Calcium 9.1 8.5 - 10.5 mg/dL [facility] Est Glomerular Filtration Rate 119 >=60 mL/min/1. 73 m?? [facility] Comment: [...] In Lab Jerry Marin MD CHEMISTRY ORDERABLES [facility] [place] [address] * (ABNORMAL) POCT Glucose (05/30/2024 12:42 PM EDT) [facility] Glucose, POC 200(H) 65 - 199 mg/dL [facility] Comment: Supplemental ranges: <140 mg/dL before meals <180 mg/dL all other times of the day Blood 05/30/2024 12:4 2 PM EDT 05/30/2024 12:42 PM EDT Jerry Marin MD POINT OF CARE TEST O RDERAHERNANDEZ [facility] [place] [address] * NM Pharmacologic Stress CT Component (05/30/2024 11:20 AM EDT) WORKSTATION ID [id number] [facility] Anatomical Region Laterality Modality Nuclear Medicine Narrative [...] who have questions please contact the health anesthesiologist and critical care that requested your imaging first. ? Procedure [...] patients who have questions please contactthe health anesthesiologist and critical care that requested your imaging first. Jerry Marin MD IMG NM ORDERABLES * Nuclear Pharmacologic Stress Cardiology (05/30/2024 10:48 AM EDT) Anatomical Region Laterality Modality Other Jerry Marin MD CARDIAC SERVICES ORD ERABLES * NM Pharmacologic Stress and Rest Myocardial Perfusion (05/30/2024 10:40 AM EDT) WORKSTATION ID [id number] [facility] Anatomical Region Laterality Modality Nuclear Medicine Impressions [...] who have questions please contact the health anesthesiologist and critical care that requested your imaging first. ? [...] patients who have questions please contactthe health anesthesiologist and critical care that requested your imaging first. Jerry Marin MD IMG NM ORDERABLES * (ABNORMAL) POCT Glucose (05/30/2024 7:49 AM EDT) Glucose, POC 216(H) 65 - 199 mg/dL [facility] Comment: Supplemental ranges: <140 mg/dL before meals <180 mg/dL all other times of the day Blood 05/30/2024 7:49 AM EDT 05/30/2024 7:49 AM EDT Jerry Marin MD POINT OF CARE TEST O RDERAHERNANDEZ Performing Organization Address [facility] Co de Phone Number [facility] [place] [address] * (ABNORMAL) POCT Glucose (05/30/2024 6:39 AM EDT) Glucose, POC 238(H) 65 - 199 mg/dL [facility] Comment: Supplemental ranges: <140 mg/dL before meals <180 mg/dL all other times of the day Blood 05/30/2024 6:39 AM EDT 05/30/2024 6:39 AM EDT Jerry Mairn MD POINT OF CARE TEST O RDERAHERNANDEZ Performing Organization Address City/[facility]/ZIP Co de Phone Number [facility] [place] [address] * (ABNORMAL) Differential, Automated (05/30/2024 12:39 AM EDT) Neutrophil % 68.3 % [facility] Neutrophil Absolute 6.33(H) 1.70 - 6.10 x10(3)/mc L [facility] Lymph % 21.9 % [facility] Lymphocytes Abs 2.0 0.9 - 3.2 x10(3)/[facility] Monocyte % 6.1 % [facility] Monocyte Abs 0.6 0.3 - 0.9 x10(3)/[facility] Eos % 2.5 % [facility] Eosinophils Abs 0.2 0.0 - 0.4 x10(3)/[facility] Basophil % 0.8 % [facility] Baso Absolute 0.1 0.0 - 0.1 x10(3)/[facility] Immature Gran % 0.40 % [facility] Comment: Immature granulocytes(IG's)percentage and absolute count will include metamyelocytes, myelocytes, and promyelocytes. Blood smears from CBCs yielding IG's will be scanned manually for concordance. If this scan disagrees with the automated IG or if promyelocytes are noted, a manual differential will be performed. Immature Gran Absolute 0.04 0.00 - 0.04 x10(3)/[facility] Blood 05/30/2024 12:3 9 AM EDT 05/30/2024 12:54 AM EDT Narrative Resulting Agency Comment Spec In Lab Lili Tapia MD HEMATOLOGY ORDERA BLES [facility] [place] [address] * (ABNORMAL) Hemogram (05/30/2024 12:39 AM EDT) White Blood Cell 9.3 4.0 - 9.5 x10(3)/[facility] Red Blood Cell 4.51(L) 4.58 - 5.54 x10(6)/[facility] Hemoglobin 13.3(L) 13.7 - 16.5 g/dL [facility] Hematocrit 38.3(L) 40.5 - 48.5 % [facility] Mean Cell Volume 84.9 82.9 - 93.1 fL [facility] Mean Cell Hemoglobin 29.5 27.5 - 32.1 pg [facility] Mean Cell Hemoglobin Concentration 34.7 32.0 - 35.7 g/dL [facility] Platelet 193 145 - 357 x10(3)/mc L [facility] RDW Standard Deviation 35.1(L) 36.0 - 45.0 [facility] RDW coefficient of variation 11.4 11.4 - 13.8 % [facility] Mean Platelet Volume 11.4 7.6 - 12.9 fL [facility] NRBC% auto 0.0 % [facility] NRBC Absolute 0.000 0.000 - 0.000 x10(3)/mc L [facility] Blood 05/30/2024 12:3 9 AM EDT 05/30/2024 12:54 AM EDT Narrative Resulting Agency Comment Spec In Lab Lili Tapia MD [place] [address] * Phosphorus (05/30/2024 12:39 AM EDT) Phosphorus 2.9 2.5 - 4.5 mg/dL [facility] Blood 05/30/2024 12:3 9 AM EDT 05/30/2024 12:54 AM EDT Narrative Resulting Agency Comment Spec In Lab Jerry Marin MD CHEMISTRY ORDERABLES Performing Organization Address City/[facility]/ZIP Co de Phone Number [facility] [place] [address] * Magnesium (05/30/2024 12:39 AM EDT) Magnesium 0.82 0.69 - 1.07 mmol/L [facility] Blood 05/30/2024 12:3 9 AM EDT 05/30/2024 12:54 AM EDT Narrative Resulting Agency Comment Spec In Lab Jerry Marin MD CHEMISTRY ORDERABLES [facility] [place] [address] * (ABNORMAL) Basic Metabolic Panel (non-fasting) (05/30/2024 12:39 AM EDT) Glucose 383(H) 65 - 199 mg/dL [facility] Comment:Diabetes: >=200 mg/d L plus symptoms Blood Urea Nitrogen 9(L) 10 - 20 mg/dL [facility] Creatinine 0.56(L) 0.80 - 1.50 mg/dL [facility] Sodium 132(L) 135 - 145 mmol/L [facility] Potassium 4.2 3.5 - 5.0 mmol/L [facility] Comment: Please note: ??Patients with WBC >100,000 may have falsely elevated Potassium levels. ??For accurate Potassium quantification in these patients send serum separator tube (gold top) for subsequent determinations. ??Contact the Clinical Chemistry Laboratory if there are any questions. Chloride 98 98 - 107 mmol/L [facility] Carbon Dioxide 22 22 - 31 mmol/L [facility] Anion Gap 12 5 - 15 mmol/L [facility] Calcium 8.7 8.5 - 10.5 mg/dL [facility] Est Glomerular Filtration Rate 120 >=60 mL/min/1. 73 m?? [facility] Comment: [...] Marin MD CHEMISTRY ORDERABLES Performing Organization Address City/[facility]/ZIP Co de Phone Number [facility] [place] [address] * Heparin (unfractionated) Level (05/30/2024 12:39 AM [...] DO HEMATOLOGY ORDERABLE S Performing Organization Address City/[facility]/ZIP Co de Phone Number [facility] [place] [address] * Lower extremity vein map, bilat (05/29/2024 8:01 PM EDT) VB Text Report Department: Vascular Surgery Lab Patient: [id number] (GEOVANNA DIXON) CPT: 26673 Referring Physician: JERRY MARIN ?? Phone: Indications: [...] Text Report Department: Vascular Surgery Lab Patient: [id number] (GEOVANNA DIXON) CPT: 38326 Referring Physician: JERRY MARIN ?? Phone: Indications: [...] EDT) Ia-2 Ab (MAY) 0.00 <=0.02 nmol/L [facility] Comment: ADDITIONAL INFORMATION This test was developed and its performance characteristics determined by [facility] in a manner consistent with CLIA requirements. This test has not been cleared or approved by the U.S. Food and Drug Administration. Test Performed by: [facility] - [address] [address] Manager Manufacturing: Varun Steen Ph.D.; CLIA# [id number] Blood 05/29/2024 7:55 PM EDT 05/30/2024 8:43 AM EDT Narrative Resulting Agency Comment Spec In Lab Jerry Marin MD CHEMISTRY ORDERABLES Performing Organization Address [facility] de Phone Number [facility] [place] [address] * TSH (05/29/2024 7:55 PM EDT) Thyroid Stimulating Hormone 1.03 0.27 - 4.20 mcIU/mL [facility] Comment: Reference Interval (mcIU/mL): Females: ??First Trimester: 0.23-3.88 ??Second Trimester: 0.22-3.90 ??Third Trimester: 0.44-4.66 Blood 05/29/2024 7:55 PM EDT 05/29/2024 8:00 PM EDT Narrative Resulting Agency Comment Spec In Lab Jerry Marin MD CHEMISTRY ORDERABLES Performing Organization Address [facility] de Phone Number [facility] [place] [address] * GAD65 Antibody Assay (05/29/2024 7:55 PM EDT) Gad65 Ab (MARCH) 0.00 <=0.02 nmol/L [facility] Comment: ADDITIONAL INFORMATION This test was developed and its performance characteristics determined by [facility] in a manner consistent with CLIA requirements. This test has not been cleared or approved by the U.S. Food and Drug Administration. Test Performed by: [address] [address] Manager Manufacturing: Varun Steen Ph.D.; CLIA# [id number] Blood 05/29/2024 7:55 PM EDT 05/30/2024 8:43 AM EDT Narrative Resulting Agency Comment Spec In Lab Jerry Marin MD LAB SEND OUT ORDERAB LES Performing Organization Address City/[facility]/ZIP Co de Phone Number [facility] [place] [address] * Heparin (unfractionated) Level (05/29/2024 5:35 PM EDT) Pathologist [facility] UF Heparin 0.50 IU/mL [facility] [...] DO HEMATOLOGY ORDERABLE S Performing Organization Address City/[facility]/ZIP Co de Phone Number [facility] [place] [address] * (ABNORMAL) POCT Glucose (05/29/2024 4:12 PM EDT) Glucose, POC 235(H) 65 - 199 mg/dL [facility] Comment: Supplemental ranges: <140 mg/dL before meals <180 mg/dL all other times of the day Blood 05/29/2024 4:12 PM EDT 05/29/2024 4:12 PM EDT Jerry Marin MD POINT OF CARE TEST O RDERABLES Performing Organization Address City/[facility]/ZIP Co de Phone Number [facility] [place] [address] * EKG 12 Lead (05/29/2024 2:51 PM EDT) Ventricular rate 85 BPM MUSE SYSTEM Atrial Rate 85 BPM MUSE SYSTEM P-R Interval 156 ms MUSE SYSTEM QRS Duration 114 ms MUSE SYSTEM Q-T Interval 384 ms MUSE SYSTEM QTC Calculated (Bezet) 456 ms MUSE SYSTEM Calculated P [place] 16 degrees MUSE SYSTEM Calculated R [place] 21 degrees MUSE SYSTEM Calculated T [place] 15 degrees MUSE SYSTEM INTERPRETATION Normal sinus rhythm Normal ECG When compared with ECG of 28-MAY-2024 19:54, Premature ventricular complexes are no longer Present Confirmed by MD Dian, Asad ([id number]) on 05/30/2024 1:27:54 PM MUSE SYSTEM 05/29/2024 2:51 PM EDT 05/30/2024 1:27 PM EDT Vibha Benson APRN ECG ORDERABLES Performing Organization Address [facility]/ZIP Co de Phone Number MUSE SYSTEM * ECHO COMPLETE W CONTRAST (05/29/2024 1:29 PM EDT) Anatomical Region Laterality Modality Cardiac Other 05/29/2024 10:3 3 AM EDT Narrative 05/29/2024 2:27 PM EDT [address] [place] [address] ? Echocardiogram Report Name: GEOVANNA DIXON JR. ? Study Date: 05/29/2024 10:33 AM ? Patient Location: [id number] 0411 A : 1975 ? Height: 178 cm ? Account: [id number] Age: 49 yrs ? Weight: 102 kg Gender: Male ?BSA: 2.2 m2 Ordering Physician: JERRY MARIN Referring Physician: KAM SKINNER Performed By: Melina Marinelli RDCS Reason For Study: Limb ischemia Exam Location: [facility]. Interpretation Summary -Left ventricular systolic function is mildly reduced. The left ventricular ejection fraction is 47% by Stacy's biplane. There is akinesis of the inferior wall. -The right ventricle is of normal size. Right ventricular systolic function is normal. -No significant valvular disease noted on this study. -Compared with the previous echo performed on 08/21/23, the ejection fraction has decreased. Procedure Complete-[id number]. An agitated saline bubble contrast study was [...] Note Deandre Jones MD - 05/29/2024 1 [place] [address] Echocardiogram Report Name: GEOVANNA DIXON JR. Study Date: 410:33 AM Patient Location: [address] : 1975 Height: 178 cm Account: [id number] Age: 49 yrs Weight: 102 kg Gender: Male BSA: 2.2 m2 Ordering Physician: JERRY MARIN Referring Physician: KAM SKINNER Performed By: Melina Marinelli RDCS Reason For Study: Limb ischemia Exam Location: [facility]. Interpretation Summary -Left ventricular systolic function is mildly reduced. The leftventricular ejection fraction is 47% by Stacy's biplane. There is akinesis of theinferior wall. -The right ventricle is of normal size. Right ventricular systolicfunction is normal. -No significant valvular disease noted on this study. -Compared with the previous echo performed on 08/21/23, the ejectionfraction has decreased. Procedure Complete-[id number]. An agitated saline bubble contrast study was [...] Glucose, POC 249(H) 65 - 199 mg/dL [facility] Comment: Supplemental ranges: <140 mg/dL before meals <180 mg/dL all other times of the day Blood 05/29/2024 1:23 PM EDT 05/29/2024 1:23 PM EDT Jerry Marin MD POINT OF CARE TEST O RDERABLES Performing Organization Address [facility] Co de Phone Number [facility] [place] [address] * Heparin (unfractionated) Level (05/29/2024 9:52 AM [...] Performing Organization Address [facility] Co de Phone Number [facility] [place] [address] * POCT Glucose (05/29/2024 8:48 AM EDT) Glucose, POC 157 65 - 199 mg/dL [facility] Comment: Supplemental ranges: <140 mg/dL before meals <180 mg/dL all other times of the day Blood 05/29/2024 8:48 AM EDT 05/29/2024 8:48 AM EDT Jerry Marin MD POINT OF CARE TEST O RDERAHERNANDEZ Performing Organization Address [facility] [facility] Co de Phone Number [facility] [place] [address] * (ABNORMAL) POCT Glucose (05/29/2024 4:00 AM EDT) Glucose, POC 218(H) 65 - 199 mg/dL [facility] Comment: Supplemental ranges: <140 mg/dL before meals <180 mg/dL all other times of the day Blood 05/29/2024 4:00 AM EDT 05/29/2024 4:00 AM EDT Jerry Marin MD POINT OF CARE TEST O GILDA Performing Organization Address [facility] de Phone Number [facility] [place] [address] * (ABNORMAL) POCT Glucose (05/29/2024 2:47 AM EDT) Glucose, POC 214(H) 65 - 199 mg/dL [facility] Comment: Supplemental ranges: <140 mg/dL before meals <180 mg/dL all other times of the day Blood 05/29/2024 2:47 AM EDT 05/29/2024 2:47 AM EDT Jerry Marin MD POINT OF CARE TEST O GILDA Performing Organization Address [facility] Co de Phone Number [facility] [place] [address] * (ABNORMAL) Hemoglobin A1c (05/29/2024 2:13 AM EDT) Hemoglobin A1c 12.6(H) 4.3 - 5.6 % [facility] Comment: Reference Range: [...] Mellitus, Diabetes Care 2013; 36: Suppl. 1, U74-03 Estimated Average Glucose 316 mg/dL [facility] Blood 05/29/2024 2:13 AM EDT 05/29/2024 8:03 AM EDT Narrative Resulting Agency Comment Spec In Lab Jerry Marin MD CHEMISTRY ORDERABLES [facility] [place] [address] * (ABNORMAL) Differential, Automated (05/29/2024 2:13 AM EDT) Neutrophil % 54.8 % [facility] Neutrophil Absolute 5.63 1.70 - 6.10 x10(3)/mc L [facility] Lymph % 34.0 % [facility] Lymphocytes Abs 3.5(H) 0.9 - 3.2 x10(3)/mc L [facility] Monocyte % 6.7 % [facility] Monocyte Abs 0.7 0.3 - 0.9 x10(3)/mc L [facility] Eos % 3.3 % [facility] Eosinophils Abs 0.3 0.0 - 0.4 x10(3)/mc L [facility] Basophil % 0.9 % [facility] Baso Absolute 0.1 0.0 - 0.1 x10(3)/mc L [facility] Immature Gran % 0.30 % [facility] Comment: Immature granulocytes(IG's)percentage and absolute count will include metamyelocytes, myelocytes, and promyelocytes. Blood smears from CBCs yielding IG's will be scanned manually for concordance. If this scan disagrees with the automated IG or if promyelocytes are noted, a manual differential will be performed. Immature Gran Absolute 0.03 0.00 - 0.04 x10(3)/ L [facility] Blood 05/29/2024 2:13 AM EDT 05/29/2024 2:27 AM EDT Narrative Resulting Agency Comment Spec In Lab Lili Tapia MD HEMATOLOGY ORDERA BLES [facility] [place] [address] * (ABNORMAL) Hemogram (05/29/2024 2:13 AM EDT) White Blood Cell 10.3(H) 4.0 - 9.5 x10(3)/[facility] Red Blood Cell 4.74 4.58 - 5.54 x10(6)/[facility] Hemoglobin 14.2 13.7 - 16.5 g/dL [facility] Hematocrit 40.4(L) 40.5 - 48.5 % [facility] Mean Cell Volume 85.2 82.9 - 93.1 fL [facility] Mean Cell Hemoglobin 30.0 27.5 - 32.1 pg [facility] Mean Cell Hemoglobin Concentration 35.1 32.0 - 35.7 g/dL [facility] Platelet 158 145 - 357 x10(3)/[facility] RDW Standard Deviation 35.4(L) 36.0 - 45.0 [facility] RDW coefficient of variation 11.4 11.4 - 13.8 % [facility] Mean Platelet Volume 10.6 7.6 - 12.9 fL [facility] NRBC% auto 0.0 % [facility] NRBC Absolute 0.000 0.000 - 0.000 x10(3)/ L [facility] Blood 05/29/2024 2:13 AM EDT 05/29/2024 2:27 AM EDT Narrative Resulting Agency Comment Spec In Lab Lili Tapia MD HEMATOLOGY ORDERA BLES Performing Organization Address City/[facility]/ZIP Co de Phone Number [facility] [place] [address] * (ABNORMAL) Heparin (unfractionated) Level (05/29/2024 2:13 AM EDT) UF Heparin 1.19(Crit ical) IU/mL [facility] Comment: Critical Result [...] DO HEMATOLOGY ORDERABLE S Performing Organization Address City/[facility]/ZIP Co de Phone Number [facility] [place] [address] * Phosphorus (05/29/2024 2:13 AM EDT) Phosphorus 2.5 2.5 - 4.5 mg/dL [facility] Blood 05/29/2024 2:13 AM EDT 05/29/2024 2:27 AM EDT Narrative Resulting Agency Comment Spec In Lab Jerry Marin MD CHEMISTRY ORDERABLES Performing Organization Address City/[facility]/ZIP Co de Phone Number [facility] [place] [address] * Magnesium (05/29/2024 2:13 AM EDT) Magnesium 0.77 0.69 - 1.07 mmol/L [facility] Blood 05/29/2024 2:13 AM EDT 05/29/2024 2:27 AM EDT Narrative Resulting Agency Comment Spec In Lab Jerry Marin MD CHEMISTRY ORDERABLES Performing Organization Address [facility] Co de Phone Number [facility] [place] [address] * (ABNORMAL) Basic Metabolic Panel (non-fasting) (05/29/2024 2:13 AM EDT) Glucose 251(H) 65 - 199 mg/dL [facility] Comment:Diabetes: >=200 mg/d L plus symptoms Blood Urea Nitrogen 11 10 - 20 mg/dL [facility] Creatinine 0.52(L) 0.80 - 1.50 mg/dL [facility] Sodium 138 135 - 145 mmol/L [facility] Potassium 3.3(L) 3.5 - 5.0 mmol/L [facility] Comment: Please note: ??Patients with WBC >100,000 may have falsely elevated Potassium levels. ??For accurate Potassium quantification in these patients send serum separator tube (gold top) for subsequent determinations. ??Contact the Clinical Chemistry Laboratory if there are any questions. Chloride 102 98 - 107 mmol/L [facility] Carbon Dioxide 25 22 - 31 mmol/L [facility] Anion Gap 11 5 - 15 mmol/L [facility] Calcium 9.0 8.5 - 10.5 mg/dL [facility] Est Glomerular Filtration Rate 123 >=60 mL/min/1. 73 m?? [facility] Comment: [...] Performing Organization Address [facility] Co de Phone Number [facility] [place] [address] * (ABNORMAL) POCT Glucose (05/29/2024 12:25 AM EDT) Pathologist [facility] Glucose, POC 253(H) 65 - 199 mg/dL [facility] Comment: Supplemental ranges: <140 mg/dL before meals <180 mg/dL all other times of the day Blood 05/29/2024 12:2 5 AM EDT 05/29/2024 12:25 AM EDT Jerry Marin MD POINT OF CARE TEST O RDERABLES Performing Organization Address [facility] Co de Phone Number [facility] [place] [address] * EKG 12 Lead (05/28/2024 7:54 PM EDT) Ventricular rate 78 BPM MUSE SYSTEM Atrial Rate 78 BPM MUSE SYSTEM P-R Interval 156 ms MUSE SYSTEM QRS Duration 110 ms MUSE SYSTEM Q-T Interval 408 ms MUSE SYSTEM QTC Calculated (Bezet) 465 ms MUSE SYSTEM Calculated R [place] 6 degrees MUSE SYSTEM Calculated T [place] 8 degrees MUSE SYSTEM INTERPRETATION Sinus rhythm [...] 6:20 PM EDT) T&S only valid at [facility] LABORATORY Comment:This Type and Screen result is only valid at the [facility] Blood 05/28/2024 6:20 PM EDT 05/28/2024 6:24 PM EDT Narrative Resulting Agency Comment Spec In Lab María Ugalde MD BLOOD BANK LAB ORDER RANDELL Performing Organization Address City/[facility]/ZIP Co de Phone Number [facility] [place] [address] * ABORH Recheck Status (05/28/2024 6:20 PM EDT) ABORH Type Recheck Completed [facility] Blood 05/28/2024 6:20 PM EDT 05/28/2024 6:24 PM EDT Narrative Resulting Agency Comment Spec In Lab María Ugalde MD BLOOD BANK LAB ORDER RANDELL Performing Organization Address City/[facility]/ZIP Co de Phone Number [facility] [place] [address] * Gold Tube HOLD (05/28/2024 6:20 PM EDT) Gold Hold Sample in lab. [facility] Blood Venous Draw / Unknown 05/28/2024 6:20 PM EDT 05/28/2024 6:25 PM EDT Juan Santana MD CHEMISTRY ORDERABLES Performing Organization Address City/[facility]/ZIP Co de Phone Number [facility] [place] [address] * Differential, Automated (05/28/2024 6:20 PM EDT) [facility] Neutrophil % 56.3 % [facility] Neutrophil Absolute 3.94 1.70 - 6.10 x10(3)/[facility] LABORATORY Lymph % 32.7 % [facility] Lymphocytes Abs 2.3 0.9 - 3.2 x10(3)/[facility] Monocyte % 6.7 % [facility] Monocyte Abs 0.5 0.3 - 0.9 x10(3)/[facility] Eos % 3.0 % [facility] Eosinophils Abs 0.2 0.0 - 0.4 x10(3)/[facility] Basophil % 1.0 % [facility] Baso Absolute 0.1 0.0 - 0.1 x10(3)/[facility] Immature Gran % 0.30 % [facility] Comment: Immature granulocytes(IG's)percentage and absolute count will include metamyelocytes, myelocytes, and promyelocytes. Blood smears from CBCs yielding IG's will be scanned manually for concordance. If this scan disagrees with the automated IG or if promyelocytes are noted, a manual differential will be performed. Immature Gran Absolute 0.02 0.00 - 0.04 x10(3)/[facility] Blood 05/28/2024 6:20 PM EDT 05/28/2024 6:24 PM EDT Narrative Resulting Agency Comment Spec In Lab Juan Santana MD HEMATOLOGY ORDERABLE S [facility] [place] [address] * (ABNORMAL) Hemogram (05/28/2024 6:20 PM EDT) [facility] White Blood Cell 7.0 4.0 - 9.5 x10(3)/mc L [facility] Red Blood Cell 4.67 4.58 - 5.54 x10(6)/mc L [facility] Hemoglobin 14.1 13.7 - 16.5 g/dL [facility] Hematocrit 39.7(L) 40.5 - 48.5 % [facility] Mean Cell Volume 85.0 82.9 - 93.1 fL [facility] Mean Cell Hemoglobin 30.2 27.5 - 32.1 pg [facility] Mean Cell Hemoglobin Concentration 35.5 32.0 - 35.7 g/dL [facility] Platelet 162 145 - 357 x10(3)/ L [facility] RDW Standard Deviation 35.3(L) 36.0 - 45.0 fL [facility] RDW coefficient of variation 11.5 11.4 - 13.8 % [facility] Mean Platelet Volume 10.8 7.6 - 12.9 fL [facility] NRBC% auto 0.0 % [facility] NRBC Absolute 0.000 0.000 - 0.000 x10(3)/ L [facility] Blood 05/28/2024 6:20 PM EDT 05/28/2024 6:24 PM EDT Narrative Resulting Agency Comment Spec In Lab Juan Santana MD HEMATOLOGY ORDERABLE S [facility] [place] [address] * Type and screen ([facility]/BABITA) (05/28/2024 6:20 PM EDT) Pathologist [facility] ABORH Type A POSITIVE [facility] Patient BB History Found [facility] Expires at [id number] on: 05-31-2024 [facility] Ab Screen Interp Negative [facility] Blood 05/28/2024 6:20 PM EDT 05/28/2024 6:20 PM EDT Narrative [facility] - 05/28/2024 6:20 PM EDT This Type and Screen result is only valid at the [facility] Resulting Agency Comment Spec In Lab María Ugalde MD BLOOD BANK LAB ORDER RANDELL [facility] [place] [address] * Lactate, whole blood, send to lab ([facility]) (05/28/2024 6:20 PM EDT) Lactate WB 1.6 0.5 - 2.2 mmol/L [facility] Blood 05/28/2024 6:20 PM EDT 05/28/2024 6:23 PM EDT Narrative Resulting Agency Comment Spec In Lab Arthur Patel DO CHEMISTRY ORDERABLES Performing Organization Address City/[facility]/ZIP Co de Phone Number [facility] [place] [address] * APTT (05/28/2024 6:20 PM EDT) Partial Thromboplastin Time 26 25 - 37 sec [facility] Comment: The PTT is NOT appropriate for heparin monitoring. Use the Anti-Xa level for heparin monitoring (HEP UFH) or LMWH monitoring (HEP LMW). A PTT less than 37 seconds generally indicates adequate hemostasis. Blood 05/28/2024 6:20 PM EDT 05/28/2024 6:24 PM EDT Narrative Resulting Agency Comment Spec In Lab Arthur Patel DO HEMATOLOGY ORDERABLE S [facility] [place] [address] * Prothrombin Time (05/28/2024 6:20 PM EDT) Prothrombin Time 10.6 9.4 - 12.5 sec [facility] International Normalization Ratio 0.9 [facility] Comment: [...] Lab Arthur Patel DO HEMATOLOGY ORDERABLE S [facility] [place] [address] * (ABNORMAL) Basic Metabolic Panel (non-fasting) (05/28/2024 6:20 PM EDT) Glucose 286(H) 65 - 199 mg/dL [facility] Comment:Diabetes: >=200 mg/d L plus symptoms Blood Urea Nitrogen 9(L) 10 - 20 mg/dL [facility] Creatinine 0.53(L) 0.80 - 1.50 mg/dL [facility] Sodium 135 135 - 145 mmol/L [facility] Potassium 3.9 3.5 - 5.0 mmol/L [facility] Comment: Please note: ??Patients with WBC >100,000 may have falsely elevated Potassium levels. ??For accurate Potassium quantification in these patients send serum separator tube (gold top) for subsequent determinations. ??Contact the Clinical Chemistry Laboratory if there are any questions. Chloride 99 98 - 107 mmol/L [facility] Carbon Dioxide 25 22 - 31 mmol/L [facility] Anion Gap 11 5 - 15 mmol/L [facility] Calcium 9.2 8.5 - 10.5 mg/dL [facility] Est Glomerular Filtration Rate 122 >=60 mL/min/1. 73 m?? [facility] Comment: [...] In Lab Arthur Patel DO CHEMISTRY ORDERABLES [facility] [place] [address] * (ABNORMAL) POCT Glucose (05/28/2024 5:46 PM EDT) Glucose, POC 262(H) 65 - 199 mg/dL [facility] Comment: Supplemental ranges: <140 mg/dL before meals <180 mg/dL all other times of the day Blood 05/28/2024 5:46 PM EDT 05/28/2024 5:46 PM EDT Emergency Dept POINT OF CARE TEST ORDERABLES [facility] [place] [address] documented in this encounter Visit Diagnoses Diagnosis [...] Simmons, DAVID)[id number] (New Bag - Provider: Anuj Lui RN)[id number] (Stopped - Provider: Anuj Liu RN) [...] ultrasound., Routine 08 (Given - Provider: Anuj iLu RN) insulin glargine-ygfn (Semglee) (100 unit/mL) subcutaneous [...] Anuj Liu RN)[id number] (Given - Provider: Anuj iLu RN) insulin lispro (HumaLOG;Admelog) (100 unit/mL) subcutaneous [...] - Reason: See comment - Comment: 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
--- OUTSIDE RECORDS SUMMARY | 2024-10-31 17:09 | XMS_ITS | Encounter Summary ---
Author Organization [facility] Address [facility] [place] [address] Care Team Providers Care Instructor Robotics Name Role Phone Patric Al MD Primary Care Provider [phone] Reason for Referral * (Routine) - Closed by system - Referral Specialty Diagnoses / Procedures Referred By Contac t Referred To Contact Cardiac Rehabilitation Diagnoses NSTEMI (non-ST elevated myocardial infarction) Sarthak Pollard MD [facility] [place] [address] Referral ID Status Reason Start Date Expiration Date Visits Requested Visits Authorized [id number] Closed by system - Referral Evaluate and Treat 3 02/18/2014 1 1 Encounter Details Date Type Department Care Team (Latest Contact Info) Description 08/20/2013 12:58 PM EDT - 08/22/2013 3:38 PM EDT Hospital Encounter Intermediate [place] [phone] Asad Biggs MD [facility] [place] [address] Sarthak Pollard MD [facility] [address] Chest pain; Coronary artery disease; [...] appointments: -During 8am-5pm Wednesday through Wednesday call [phone] to speak with a nurse in the cardiology clinic -All other times call [phone] and ask to speak to the cancer registry coordinator insulation mechanic. Return to work/ usual actvities: 1 week, as tolerated. No squatting or lifting more than 10 pounds until then. Driving: No driving for 48 hours after catheterization. Follow up Appointments: PCP: PATRIC AL MD at [phone] to see you on WednesdayAugust 28 at 10:50 am. Commuter Pilot, Dr. Oseguera, to see you on 09/20/14 at noon. Please call [phone] with questions. Diabetes medication instructions You should [...] * CHEST PAIN (ANGINA): AFTER YOUR VISIT (MARTINIQUAIS) * CORONARY ARTERY DISEASE: AFTER YOUR VISIT (MARTINIQUAIS) * DIABETES DIET GUIDELINES: AFTER YOUR VISIT (MARTINIQUAIS) * HEART ATTACK: AFTER YOUR VISIT (MARTINIQUAIS) * HEMOGLOBIN A1C: ABOUT THIS TEST (MARTINIQUAIS) * HOME BLOOD GLUCOSE TEST: ABOUT THIS TEST (MARTINIQUAIS) * CARDIAC CATHETERIZATION: AFTER YOUR VISIT (MARTINIQUAIS) documented in this encounter Medications at Time [...] Patient is a 38 y/o man from [place], [place]. He is disabled and on Social [...] Office of Care Management (OCM) / Clinical Button Tufter (CRC)/ Initial Assessment Discussed patient with Provider [...] to drive with medication. No assistive devices OUTBOARD MOTOR TESTER. CURRENT FUNCTIONAL STATUS: same SOCIAL / FAMILY [...] D for prescriptions. Uses [facility] in [facility] CURRENT HOME/COMMUNITY SERVICES/EQUIPMENT: None WIRE REPAIRER REFERRAL: Notified WIRE REPAIRER, Alexandru Casas regarding pt's [place] Medicaid. Pt's [place] Medicaid is not active per Alexandru SALCEDO. PRIMARY CARE PHYSICIAN: PATRIC AL MD ALEJANDRA [address] / [facility] [id number] POTENTIAL DISCHARGE NEEDS: None identified at this [...] while hospitalized. Awaiting Endocrine consult. Calista Jaimes CERTIFIED EMERGENCY VEHICLE TECHNICIAN CRC/Jaye Dennison MSN BSN RN CRC Office of Care Managment Pager [phone] . * Padma Marquez I, RD - 08/22/2013 11:42 AM EDT Nutrition Services Education Note Diet Rx: [facility]/Low Fat Patient Active Problem List Diagnosis Code [...] Pt stated good understanding. Thank you. * aTylor Hamlin RN - 08/22/2013 10:37 AM EDT [...] Weight loss options discussed Phase II Referral: [facility] Activity Summary: By discharge, patient will [...] up with PCP or Dr Bird in [place] I reviewed the patient with and agree with the recommendations and plans * Sarthak Pollard MD - 08/22/2013 7:18 AM EDT Inpatient Cardiology Progress Note Patient Name: Lux Dixon JrFlorencio Service: FOOD SERVICE KITCHEN SUPERVISOR / PA Responsible Attending: Dr Pollard Reason for continued hospitalization: Evaluation and management of NSTEMI S/p cardiac catheterization, PCI of LCX, being seen by Cardiac Rehabilitation [facility] 10, Endocrine consulted Active Problems: Active [...] 2v CABG and recurrent angina, +NSTEMI pending [facility]. Stable. Plan: 1. CAD/ CABGx2, stable [...] discussed with Dr. Pollard. JUSTIN OROSCO Pager [phone] 08/22/2013 Cardiology Attending Note: I interviewed and [...] as oral agents. He lives in the [facility]. We will set him up to see Dr. Reji Lucia or one of his colleagues. Time spent at bedside and coordinating care: 35 mins. Sarthak Pollard MD, MS Staff Commuter Pilot Pager [phone] * Latonya Sanders - 08/21/2013 10:28 PM [...] pulses are palpable. Latonya Sanders MD # [id number] * Sarthak Pollard MD - 08/21/2013 8:36 AM EDT Inpatient Cardiology Progress Note Patient Name: Lux Dixon Jr. Service: FOOD SERVICE KITCHEN SUPERVISOR / PA Responsible Attending: Dr Pollard Reason for continued hospitalization: Evaluation and management of NSTEMI Active Problems: Active Hospital Problems Diagnosis ??? Coronary artery disease Priority: High NSTEMI 12-29-2011 Cath - LAD, PDA and Distal Circ Disease CABG 01-04-2012 (MARTINEZ-LAD, SVG-PDA) ??? TR (tricuspid regurgitation), mild Mild MD ??? CAD (coronary artery disease) 2009 , [...] mcg/min (08/21/13215) ??? heparin 2,150 Units/hr (08/21/13 0595) ??? sodium chloride 0.9% Stopped (08/20/13 0693) Physical Exam: Vital Signs: Last value Range [...] 2v CABG and recurrent angina, +NSTEMI pending [facility]. Plan: 1. CAD/ CABGx2, [facility] today Needs risk factors addressed Has [...] to his RPDA and occlusion of his [place] RCA since that time of his last [...] 35 mins. Sarthak Pollard MD, MS Staff Commuter Pilot Pager [phone] * Reny Kent RN - 08/20/2013 10:08 [...] 00 and 0200. 0310) Patient alerted staff nuclear medicine technologist that he is experiencing 3/10 left arm pain and a headache. [B/P 151/59]. Dr. Golden states to increase nitroglycerin gtt to 50mcg/min. Continue to monitor patient comfort. * Michelle Chong RN - 08/20/2013 3:00 PM EDT Complaining of 30/10 Chest Pain Radiating To Left arm Nitro Gtt Started Per 106/60 hr [address] [facility] 1515 pain Level is 11/17 118/58 65 ekg ordered documented in this encounter H&P Notes * Eben Bingham MD - 08/20/2013 3:12 PM EDT Cardiology Admission H & P Patient Name: Lux Dixon Jr. MRN No - [id number] Date of - 1975 Age - 38 [...] CABG MARTINEZ-LAD, SVG-PDA and Obesity transferred from [facility] because of CP which started yesterday [...] glucose of 546, normal BUN/cr. He was [id number] of plavix and started on heparin gtt. He had some CP on arrival to [facility] which was . ECG was normal. Dr. [...] INNA TOVAR at [facility] MA[facility] OR ??? Cabg, artery-vein, single 01/04/2012 @CABG, VENOUS & ARTERIAL GRAFT;SINGLE VEIN GRAFT performed by INNA TOVAR at [facility] OR Family History: Family History [...] clinical decision making Provider: Eben Bingham Pager: [phone] documented in this encounter Procedure Notes * Provider, Scanning - 08/24/2013 11:52 AM EDTAssociated Order(s): SCAN DOC: CONSTRUCTION PRODUCER * Provider, Scanning - 08/21/2013 3:30 PM [...] management and to provide a reviewof his long term care pharmacist diabetes plan. Diabetes History: Lux Dixon Jr. [...] of SVG to RPDA and occlusion of [place] RCA. LVEDP 21. PCI of mid and [...] up with PCP or Dr Bird in [place] ??? Obesity Weight is 130.5 Kg [...] SVG-PDA in 2011 and obesity transferred from [facility] for chest pain which started the [...] or vomiting. Hospital Course: On admission to [facility], he had CP on arrival to [facility] which was 1-01/15. ECG was normal. He [...] occlusion of SVG to RPDA, occlusion of [place] RCA. The SVG to RCA was not [...] up with PCP or Dr Bird in [place] Smoking cessation was advised & discussed. [...] appointments: -During 8am-5pm Wednesday through Wednesday call [phone] to speak with a nurse in the cardiology clinic -All other times call [phone] and ask to speak to the cancer registry coordinator insulation mechanic. Return to work/ usual actvities: 1 week, as tolerated. No squatting or lifting more than 10 pounds until then. Driving: No driving for 48 hours after catheterization. Follow up Appointments: PCP: PATRIC AL MD at [phone] to see you on WednesdayAugust 28 at 10:50 am. Commuter Pilot, Dr. Oseguera, to see you on 09/20/14 at noon. Please call [phone] with questions. Diabetes medication instructions You should [...] Complete By Expires Referral to Cardiac Rehab [[id number] Custom] Process Instructions: If no progress note charted, please enter Clinical details in comments. Scheduling Instructions: Comments: Pt will participate in cardiac rehab @ [facility] Questions: Responses: Reason for referral NSTEMI Provider Contact Information: JALEN Billingsley NP Dr Bruce Andrus [phone] Discharge References/Attachments: Discharge References/Attachments CHEST PAIN (ANGINA): AFTER YOUR VISIT (MARTINIQUAIS) CORONARY ARTERY DISEASE: AFTER YOUR VISIT (MARTINIQUAIS) DIABETES DIET GUIDELINES: AFTER YOUR VISIT (MARTINIQUAIS) HEART ATTACK: AFTER YOUR VISIT (MARTINIQUAIS) HEMOGLOBIN A1C: ABOUT THIS TEST (MARTINIQUAIS) HOME BLOOD GLUCOSE TEST: ABOUT THIS TEST (MARTINIQUAIS) Signed: JUSTIN OROSCO Pager [phone] DATE: 08/22/2013 * Miscellaneous - Provider, Scanning - 08/20/2013 2:59 PM EDT * Miscellaneous - Provider, Scanning - 08/20/2013 2:58 PM EDT documented in this encounter Plan of Treatment Upcoming Encounters Date Type Department Care Team (Late st Contact Info) Description 11/09/2024 1:30 PM EST Office [place] [phone] Isabela Hayward, TURN SUPERVISOR [facility] [place] [address] 11/10/2024 10:00 AM EST Office [place] [phone] Dai Whitman APRN 11/21/2024 2:15 PM EST Office [place] [phone] Dayanara Grover MD [facility] [place] [address] Scheduled Orders Name Type Priority Associated Diagnoses Orde r Schedule EKG 12 Lead ECG STAT Chest pain One Time for 1 Occurrences starting 08/20/2013 until 08/20/2013 Scheduled Referrals Name Type Priority Associated Diagnoses Orde r Schedule Referral to Cardiac Rehab Outpatient Referral Routine NSTEMI (non-ST elevated myocardial infarction) Ordered: 08/22/2013 documented as of this encounter Procedures Procedure Name Priority Date/Time Associated Diagnosis Comments CONSTRUCTION PRODUCER SCAN 08/24/2013 11:52 AM EDT POCT GLUCOSE Routine 08/22/2013 11:52 AM EDT POCT GLUCOSE Routine 08/22/2013 7:47 AM EDT EKG 12-LEAD Routine 08/22/2013 7:45 AM EDT Chest pain BMP W/FASTING GLUCOSE Routine 08/22/2013 4:03 AM EDT DIFFERENTIAL, AUTOMATED Routine 08/22/20 4:03 AM EDT CARDIAC ENZYMES ([facility]/CGP) Routine 08/22/2013 4:03 AM EDT CBC (WITH DIFF) Routine 08/22/2013 4:03 AM EDT POCT GLUCOSE Routine 08/21/2013 10:43 PM EDT POCT GLUCOSE Routine 08/21/2013 8:28 PM EDT CARDIAC ENZYMES ([facility]/CGP) STAT 08/21/2013 6:36 PM EDT POCT GLUCOSE [...] 08/21/20 13 3:53 AM EDT CARDIAC ENZYMES ([facility]/CGP) Routine 08/21/2013 3:53 AM EDT APTT Routine [...] STAT 08/20/2013 11:51 PM EDT CARDIAC ENZYMES ([facility]/CGP) STAT 08/20/2013 9:40 PM EDT XR CHEST [...] 08/20/2013 1: 45 PM EDT CARDIAC ENZYMES ([facility]/CGP) Routine 08/20/2013 1:45 PM EDT APTT Routine 08/20/2013 1:45 PM EDT PROTHROMBIN TIME Routine 08/20/2013 1:45 PM EDT CBC (WITH DIFF) Routine 08/20/2013 1:45 PM EDT MAGNESIUM Routine 08/20/2013 1:45 PM EDT BASIC METABOLIC PANEL Routine 08/20/2013 1:45 PM EDT POCT GLUCOSE Routine 08/20/2013 1:23 PM EDT documented in this encounter Results * SCAN DOC: CONSTRUCTION PRODUCER (08/24/2013 11:52 AM EDT) Anatomical Region Laterality Modality Other Narrative 08/24/2013 12:55 PM EDT Procedure Note Provider, Scanning - 08/24/2013 11:52 AM EDT Scanning Provider MEDIA MGR SCAN EXT O RDR/RSLT * (ABNORMAL) POCT Glucose (08/22/2013 11:52 AM EDT) [facility] Glucose, POC 225(H) 60 - 199 mg/dL [facility] Comment: Supplemental ranges: <110 mg/dL before meals <200 mg/dL all other times of the day Blood specimen (specimen) 08/22/2013 11:52 AM EDT 08/22/2013 11:52 AM EDT Asad Biggs MD POINT OF CARE TEST O RDERABLES Performing Organization Address [facility] de Phone Number [facility] * POCT Glucose (08/22/2013 7:47 AM EDT) Glucose, POC 199 60 - 199 mg/dL [facility] Comment: Supplemental ranges: <110 mg/dL before meals <200 mg/dL all other times of the day Blood specimen (specimen) 08/22/2013 7:47 AM EDT 08/22/2013 7:47 AM EDT Asad Biggs MD POINT OF CARE TEST O RDERABLES Performing Organization Address [facility] Phone Number [facility] * EKG 12 Lead (08/22/2013 7:45 AM EDT) Ventricular rate 79 BPM MUSE SYSTEM Atrial Rate 79 BPM MUSE SYSTEM P-R Interval 182 ms MUSE SYSTEM QRS Duration 108 ms MUSE SYSTEM Q-T Interval 406 ms MUSE SYSTEM QTC Calculated (Bezet) 465 ms MUSE SYSTEM Calculated P [place] 57 degrees MUSE SYSTEM Calculated R [place] 23 degrees MUSE SYSTEM Calculated T [place] 2 degrees MUSE SYSTEM INTERPRETATION Normal sinus rhythm Cannot rule out Inferior infarct , age undetermined When compared with ECG of 21-AUG-2013 14:53, Borderline criteria for Inferior infarct are now present Confirmed by Pablito Torres MD ([id number]) on 08/23/2013 10:09:45 AM MUSE SYSTEM 08/22/2013 7:45 AM EDT 08/23/2013 10:09 AM EDT Tim Uribe MD ECG ORDERABLES Performing Organization Address [facility] [place] Phone Number MUSE SYSTEM * (ABNORMAL) Differential, [...] of Diabetes Mellitus, Position Statement from the [place] Diabetes Association. ??Diabetes Care, Volume 33, Supplement 1, Nov 2009 Blood Urea Nitrogen 6(L) 10 - 20 mg/dL [facility] Creatinine 0.62(L) 0.80 - 1.50 mg/dL [facility] Comment: Please note that the pediatric reference intervals supplied above were not validated at [facility]. Results from pediatric patients should be interpreted [...] MD CHEMISTRY ORDERABL ES Performing Organization Address [facility] de Phone Number ARIAN NELSON * (ABNORMAL) Cardiac Enzymes (08/22/2013 4:03 AM EDT) Pathologist [facility] Troponin-T 0.95(H) <=0.03 ng/mL [facility] MILLENNI[facility] Comment: 0.03 ng/mL: Represents the 99th percentile upper reference limit for normals. >0.03 ng/mL: Elevated cardiac troponin T level indicative of myocardial damage. Diagnosis of acute, evolving or recent [place] requires a typical rise and gradual fall [...] consensus document of the Joint Society of Cardiology/[place] College of Cardiology Committee for the redefinition of myocardial infarction. Journal of the [place] College of Cardiology 2000; 36: 959-969] Creatine Kinase 455(H) 0 - 200 unit/L C[facility] CorMatrixENNI[facility] Blood specimen (specimen) 08/22/2013 4:03 AM EDT 08/22/2013 4:42 AM EDT Narrative Resulting Agency Comment Spec In Lab Tim Uribe MD CHEMISTRY ORDERABL ES Performing Organization Address [facility]/ZIP Co de Phone Number ARIAN CERDAIUM * (ABNORMAL) CBC (with Diff) (08/22/2013 4:03 AM EDT) Pathologist [facility] White Blood Cell 10.0 4.0 - 10.0 x10(3)/mc L [facility] MILLENNIUM Red Blood Cell 4.17(L) 4.63 - 6.08 x10(6)/mc L [facility]ILLENNIUM Hemoglobin 12.7(L) 13.7 - 17.5 gm/dL [facility] Hematocrit 37.7(L) 40.0 - 51.0 % [facility] Mean Cell Volume 90.4 79.0 - 92.0 fL [facility] Mean Cell Hemoglobin 30.5 25.6 - 32.2 pg [facility] Mean Cell Hemoglobin Concentration 33.7 32.0 - 36.5 gm/dL [facility] Platelet 201 145 - 370 x10(3)/mc L [facility] RDW Standard Deviation 40.4 35.0 - 46.0 fL [facility] RDW coefficient of variation 12.4 10.9 - 14.4 % [facility] Mean Platelet Volume 11.2 9.0 - 12.[address] [facility] Blood specimen (specimen) 08/22/2013 4:03 AM EDT 08/22/2013 4:42 AM EDT Narrative Resulting Agency Comment Spec In Lab Tim Uribe MD HEMATOLOGY ORDERAB LES Performing Organization Address City/[facility]/ZIP Co de Phone Number [facility] * POCT Glucose (08/21/2013 10:43 PM EDT) Glucose, POC 193 60 - 199 mg/dL [facility] Comment: Supplemental ranges: <110 mg/dL before meals <200 mg/dL all other times of the day Blood specimen (specimen) 08/21/2013 10:43 PM EDT 08/21/2013 10:43 PM EDT Asad Biggs MD POINT OF CARE TEST O RDERABLES Performing Organization Address [facility]/ZIP Co de Phone Number [facility] * (ABNORMAL) POCT Glucose (08/21/2013 8:28 PM EDT) Glucose, POC 259(H) 60 - 199 mg/dL [facility] Comment: Supplemental ranges: <110 mg/dL before meals <200 mg/dL all other times of the day Blood specimen (specimen) 08/21/2013 8:28 PM EDT 08/21/2013 8:28 PM EDT Asad Biggs MD POINT OF CARE TEST O RDERABLES Performing Organization Address [facility] Co de Phone Number ARIAN NELSON * (ABNORMAL) Cardiac Enzymes (08/21/2013 6:36 PM EDT) Troponin-T 0.93(H) <=0.03 ng/mL [facility] Comment: 0.03 ng/mL: Represents the 99th percentile upper reference limit for normals. >0.03 ng/mL: Elevated cardiac troponin T level indicative of myocardial damage. Diagnosis of acute, evolving or recent [place] requires a typical rise and gradual fall [...] consensus document of the Joint Society of Cardiology/[place] College of Cardiology Committee for the redefinition of myocardial infarction. Journal of the [place] College of Cardiology 2000; 36: 959-969] Creatine Kinase 594(H) 0 - 200 unit/L [facility] Blood specimen (specimen) 08/21/2013 6:36 PM EDT 08/21/2013 6:47 PM EDT Narrative Resulting Agency Comment Spec In Lab Sarthak Pollard MD CHEMISTRY ORDERABLES Performing Organization Address [facility] Co de Phone Number ARIAN NELSON * POCT Glucose (08/21/2013 4:25 PM EDT) Glucose, POC 138 60 - 199 mg/dL [facility] Comment: Supplemental ranges: <110 mg/dL before meals <200 mg/dL all other times of the day Blood specimen (specimen) 08/21/2013 4:25 PM EDT 08/21/2013 4:25 PM EDT Asad Biggs MD POINT OF CARE TEST O RDERAHERNANDEZ Performing Organization Address [facility] Co de Phone Number [facility] * EKG 12 Lead (08/21/2013 2:53 PM EDT) Ventricular rate 75 BPM MUSE SYSTEM Atrial Rate 75 BPM MUSE SYSTEM P-R Interval 172 ms MUSE SYSTEM QRS Duration 106 ms MUSE SYSTEM Q-T Interval 388 ms MUSE SYSTEM QTC Calculated (Bezet) 433 ms MUSE SYSTEM Calculated P [place] 11 degrees MUSE SYSTEM Calculated R [place] 35 degrees MUSE SYSTEM Calculated T [place] 1 degrees MUSE SYSTEM INTERPRETATION Normal sinus rhythm Normal ECG When compared with ECG of 21-AUG-2013 02:54, No significant change was found Confirmed by Pablito Torres MD ([id number]) on 08/22/2013 3:01:48 PM MUSE SYSTEM 08/21/2013 2:53 PM EDT 08/22/2013 3:01 PM EDT Tim Uribe MD ECG ORDERABLES Performing Organization Address [facility] Co de Phone Number MUSE SYSTEM * Cardiac Catheterization (08/21/2013 2:38 PM EDT) Anatomical Region Laterality Modality Other Narrative 08/21/2013 7:29 PM EDT Procedure Note Provider, Scanning - 08/21/2013 3:30 PM EDT Asad Biggs MD CARDIAC CATH ORDERAB LES * (ABNORMAL) POCT Glucose (08/21/2013 11:37 AM EDT) Glucose, POC 200(H) 60 - 199 mg/dL [facility] Comment: Supplemental ranges: <110 mg/dL before meals <200 mg/dL all other times of the day Blood specimen (specimen) 08/21/2013 11:37 AM EDT 08/21/2013 11:37 AM EDT Asad Biggs MD POINT OF CARE TEST O RDERABLES Performing Organization Address [facility] de Phone Number [facility] * (ABNORMAL) APTT (08/21/2013 11:09 AM EDT) Partial Thromboplastin Time 63(H) 25 - [address] [facility] Comment: Recommended therapeutic PTT range for full dose unfractionated heparin is 80-114 seconds. Blood specimen (specimen) 08/21/2013 11:09 AM EDT 08/21/2013 11:42 AM EDT Narrative Resulting Agency Comment Spec In Lab Asad Biggs MD HEMATOLOGY ORDERABLE S Performing Organization Address [facility] de Phone Number [facility] * Echocardiogram Transthoracic(Leb) (08/21/2013 9:16 AM EDT) EF 65 HEARTLAB SYSTEM Anatomical Region Laterality Modality Other 08/21/2013 Narrative 08/21/2013 9:51 AM EDT Procedure: ? Transthoracic Echocardiogram Patient: ? QUIANA AUSTIN P ?(Age): 1975(38) Med Rec#: ?[id number] ? Sex: ?M ? Site Loc: ?[facility] ? Ht / Wt: ??180(cm)/127(kg) Pt. Loc: ? Adult Floor ?BSA: ?2.52 Study Date: ?08/21/2013 ? Pt. Type: Inpatient Tape: ? Referring: Eben Bingham Referring: AKANKSHA CAI Personal Care Aide: Patric Blunt [facility] Interpreting Fellow: Luca Wilson ([id number]) Diagnosis: ??Chest pain (786.50) CPT Code(s): ??Echo Full (63457), ??Spectral Doppler (40063), ??Color Doppler (61008), Indication(s): ??Chest Pain Rhythm: HR ?BP ?121/62 [...] ? Mid-Inferior ?Normal ? Mid-Inferoseptal ?Normal ? [place]-Septal ? Normal ? [place]-Anterior ? Normal ? [place]-Lateral ?Normal ? [place]-Inferior ? Normal ? [place]-Tip ?Normal ? Chambers ?Value ?Units (Range) ? [...] 08/21/2013 09:50:27 Images reviewed and interpretation verified [facility] Cardiac Ultrasound Laboratory Resulting Agency Comment 1X Procedure Note Umair Brock MD - 08/21/2013 Procedure: Transthoracic Echocardiogram Patient: QUIANA Llanos (Age): 1975(38) Med Rec#: [id number] Sex: M Site Loc: [facility] Ht / Wt: 180(cm)/127(kg) Pt. Loc: Adult Floor BSA: 2.52 Study Date: 08/21/2013 Pt. Type: Inpatient Tape: Referring: Eben Bingham Referring: AKANKSHA CAI Personal Care Aide: Patric Blunt [facility] Interpreting Fellow: Luca Wilson ([id number]) Diagnosis: Chest pain (786.50) CPT Code(s): Echo Full (29071), Spectral Doppler (82289), Color Doppler (55858), Indication(s): Chest Pain Rhythm: HR BP 121/62 [...] Normal Mid-Posterolateral Normal Mid-Inferior Normal Mid-Inferoseptal Normal [place]-Septal Normal [place]-Anterior Normal [place]-Lateral Normal [place]-Inferior Normal [place]-Tip Normal Chambers Value Units (Range) LV EF [...] 08/21/2013 09:50:27 Images reviewed and interpretation verified [facility] Cardiac Ultrasound Laboratory Eben Ruiz MD ECHO ORDERABLES * (ABNORMAL) POCT Glucose (08/21/2013 8:33 AM EDT) Pathologist [facility] Glucose, POC 202(H) 60 - 199 mg/dL [facility] Comment: Supplemental ranges: <110 mg/dL before meals <200 mg/dL all other times of the day Blood specimen (specimen) 08/21/2013 8:33 AM EDT 08/21/2013 8:33 AM EDT Asad Biggs MD POINT OF CARE TEST O RDERABLES Performing Organization Address [facility] Co de Phone Number [facility] * (ABNORMAL) APTT (08/21/2013 3:53 AM EDT) Pathologist [facility] Partial Thromboplastin Time 61(H) 25 - [address] [facility] Comment: Recommended therapeutic PTT range for full dose unfractionated heparin is 80-114 seconds. Blood specimen (specimen) 08/21/2013 3:53 AM EDT 08/21/2013 4:00 AM EDT Narrative Resulting Agency Comment Spec In Lab Eben Ruiz MD HEMATOLOGY ORDERABLE S Performing Organization Address [facility] Co de Phone Number [facility] * (ABNORMAL) Differential, Automated (08/21/2013 3:53 AM EDT) Pathologist [facility] Neutrophil % 70.9 34.0 - 71.0 % [...] EDT Eben Ruiz MD HEMATOLOGY ORDERABLE S [facility] * (ABNORMAL) Cardiac Enzymes (08/21/2013 3:53 AM EDT) Troponin-T 1.06(H) <=0.03 ng/mL CERNER MILLENNIUM Comment: 0.03 ng/mL: Represents the 99th percentile upper reference limit for normals. >0.03 ng/mL: Elevated cardiac troponin T level indicative of myocardial damage. Diagnosis of acute, evolving or recent [place] requires a typical rise and gradual fall [...] consensus document of the Joint Society of Cardiology/[place] College [employer] Cardiology Committee for the redefinition of myocardial infarction. Journal of the [place] College of Cardiology 2000; 36: 959-969] Creatine Kinase 777(H) 0 - 200 unit/L CERNER CorMatrixENNIUM Blood specimen (specimen) 08/21/2013 3:53 AM EDT [...] of Diabetes Mellitus, Position Statement from the [place] Diabetes Association. ??Diabetes Care, Volume 33, Supplement 1, Nov 2009 Blood Urea Nitrogen 15 10 - 20 mg/dL [facility] MILLENNIUM Creatinine 0.67(L) 0.80 - 1.50 mg/dL CERNER MILLENNIUM Comment: Please note that the pediatric reference intervals supplied above were not validated at [facility]. Results from pediatric patients should be interpreted [...] Platelet Volume 11.1 9.0 - 12.0 fL [facility] Blood specimen (specimen) 08/21/2013 3:53 AM EDT 08/21/2013 4:00 AM EDT Narrative Resulting Agency Comment Spec In Lab Asad Biggs MD HEMATOLOGY ORDERABLE S Performing Organization Address [facility] Co de Phone Number [facility] * Prothrombin Time (08/21/2013 3:53 AM EDT) Prothrombin Time 13.5 12.0 - 15.0 sec [facility] Comment: [facility] Transfusion Committee Guidelines: INR less than 2.0, PTT less than OR equal to 43.5 seconds, or Fibrinogen greater than or equal to 100 mg/dl indicate adequate procoagulant activity for hemostasis in patients without underlying bleeding disorders. International Normalization Ratio 1.0 0.9 - 1.1 [facility] Blood specimen (specimen) 08/21/2013 3:53 AM EDT 08/21/2013 4:00 AM EDT Narrative Resulting Agency Comment Spec In Lab Asad Biggs MD HEMATOLOGY ORDERABLE S Performing Organization Address City/[facility] Co de Phone Number [facility] * (ABNORMAL) Triglyceride (08/21/2013 3:53 AM EDT) Triglyceride 733(H) <=149 mg/dL [facility] Comment: Reference Range: Normal triglycerides: ??<150 mg/dL Borderline high: ??150-199 mg/dL High: ??200-499 mg/dL Very high: ??>gx=770 mg/dL ELISEO 2001; 285(19):8107-4712 Blood specimen (specimen) 08/21/2013 3:53 AM EDT 08/21/2013 4:00 AM EDT Narrative Resulting Agency Comment Spec In Lab Eben Ruiz MD CHEMISTRY ORDERABLES Performing Organization Address [facility] de Phone Number [facility] * (ABNORMAL) HDL/Cholesterol Profile (08/21/2013 3:53 AM EDT) Cholesterol, Total 218(H) <=199 mg/dL [facility] Comment: Recommendations of the NCEP Adult Treatment Panel for the following risk cutoff thresholds for the [place] population: Desirable: <200 mg/dL Borderline High: 200-239 mg/dL High: > or = 240 mg/dL HDL Cholesterol 24(L) >=40 mg/dL [facility] Comment: Reference range: ??Low HDL: ?? < 40 mg/dL ??Normal: ?40-60 mg/dL ??Desirable: > 60 mg/dL ELISEO 2001; 285(19):2818-3903 Cholesterol/HDL Ratio 9.1 ratio [facility] Comment: A Cholesterol to HDL ratio below 4:1 is desirable. ??Studies suggest that increased CAD risk occurs at ratios above 5 for females and above 6 for men. ? [place] Heart Association ??(http://www.americanheart.org) ? Jazmine Int Med, 1994; 121:641 ? AM J Med, 1998; 105(1A):48S Blood specimen (specimen) 08/21/2013 3:53 AM EDT 08/21/2013 4:00 AM EDT Narrative Resulting Agency Comment Spec In Lab Eben Ruiz MD CHEMISTRY ORDERABLES Performing Organization Address [facility] Co de Phone Number CERNER MILLENNIUM * (ABNORMAL) LDL Cholesterol, Direct (08/21/2013 3:53 AM EDT) LDL Cholesterol, Direct 107(H) <=99 mg/dL [facility] Comment: The National Cholesterol Education Program (NCEP) has set the following guidelines for LDL Cholesterol: Reference range: ?? Optimal: ?<100 mg/dL ?? Near Optimal/Above Optimal: ?? 100-129 mg/dL ?? Borderline high: ?130-159 mg/dL ?? High: ? 160-189 mg/dL ?? Very high: ?>qd=833 mg/dL ELISEO 2001: 285(44):7709-8151 Blood specimen (specimen) 08/21/2013 3:53 AM EDT 08/21/2013 4:00 AM EDT Narrative Resulting Agency Comment Spec In Lab Eben Ruiz MD CHEMISTRY ORDERABLES [facility] * (ABNORMAL) Hemoglobin A1c (08/21/2013 3:53 AM EDT) Hemoglobin A1c 10.0(H) 4.3 - 6.1 % [facility] Comment: The [place] Diabetes Association (ADA) has stated that HbA1c [...] into estimated average glucose values. ??Diabetes Care 2008:31(8):9407-0474. Blood specimen (specimen) 08/21/2013 3:53 AM EDT [...] (Bezet) 431 ms MUSE SYSTEM Calculated P [place] 4 degrees MUSE SYSTEM Calculated R [place] 28 degrees MUSE SYSTEM Calculated T [place] 21 degrees MUSE SYSTEM INTERPRETATION Normal sinus rhythm Nonspecific T wave abnormality Abnormal ECG When compared with ECG of 20-AUG-2013 15:19, No significant change was found Confirmed by Pablito Torres MD (49) on 08/21/2013 12:56:35 PM MUSE SYSTEM 08/21/2013 2:54 AM EDT 08/21/2013 12:56 PM EDT Eben Ruiz MD ECG ORDERABLES Performing Organization Address [facility] Co de Phone Number MUSE SYSTEM * (ABNORMAL) POCT Glucose (08/21/2013 1:59 AM EDT) Glucose, POC 262(H) 60 - 199 mg/dL [facility] Comment: Supplemental ranges: <110 mg/dL before meals <200 mg/dL all other times of the day Blood specimen (specimen) 08/21/2013 1:59 AM EDT 08/21/2013 1:59 AM EDT Asad Biggs MD POINT OF CARE TEST O RDERABLES Performing Organization Address [facility] de Phone Number [facility] * (ABNORMAL) POCT Glucose (08/20/2013 11:54 PM EDT) Glucose, POC 290(H) 60 - 199 mg/dL [facility] Comment: Supplemental ranges: <110 mg/dL before meals <200 mg/dL all other times of the day Blood specimen (specimen) 08/20/2013 11:54 PM EDT 08/20/2013 11:54 PM EDT Asad Biggs MD POINT OF CARE TEST O RDERABLES Performing Organization Address [facility] de Phone Number [facility] * APTT (08/20/2013 11:51 PM EDT) Partial Thromboplastin Time 35 25 - [address] [facility] Comment: Recommended therapeutic PTT range for full dose unfractionated heparin is 80-114 seconds. Blood specimen (specimen) 08/20/2013 11:51 PM EDT 08/21/2013 12:01 AM EDT Narrative Resulting Agency Comment Spec In Lab Asad Biggs MD HEMATOLOGY ORDERABLE S Performing Organization Address [facility] Co de Phone Number [facility] NEL[facility] * (ABNORMAL) Cardiac Enzymes (08/20/2013 9:40 PM EDT) Troponin-T 0.74(H) <=0.03 ng/mL [facility] NELSON Comment: 0.03 ng/mL: Represents the 99th percentile upper reference limit for normals. >0.03 ng/mL: Elevated cardiac troponin T level indicative of myocardial damage. Diagnosis of acute, evolving or recent [place] requires a typical rise and gradual fall [...] consensus document of the Joint Society of Cardiology/[place] College of Cardiology Committee for the redefinition of myocardial infarction. Journal of the [place] College of Cardiology 2000; 36: 959-969] Creatine Kinase 828(H) 0 - 200 unit/L ARIAN NELSON Blood specimen (specimen) 08/20/2013 9:40 PM EDT 08/20/2013 9:47 PM EDT Narrative Resulting Agency Comment Spec In Lab Eben Ruiz MD CHEMISTRY ORDERABLES Performing Organization Address City/[facility]/ZIP Co de Phone Number ARIAN [...] Glucose, POC 200(H) 60 - 199 mg/dL [facility] Comment: Supplemental ranges: <110 mg/dL before meals <200 mg/dL all other times of the day Blood specimen (specimen) 08/20/2013 8:26 PM EDT 08/20/2013 8:26 PM EDT Asad Biggs MD POINT OF CARE TEST O RDERABLES [facility] * (ABNORMAL) POCT Glucose (08/20/2013 5:03 PM EDT) Glucose, POC 230(H) 60 - 199 mg/dL [facility] Comment: Supplemental ranges: <110 mg/dL before [...] (Bezet) 435 ms MUSE SYSTEM Calculated P [place] 3 degrees MUSE SYSTEM Calculated R [place] 19 degrees MUSE SYSTEM Calculated T [place] 35 degrees MUSE SYSTEM INTERPRETATION Normal sinus [...] Absolute 0.0 0.0 - 0.2 x10(3)/mc L [facility] MILLENNIUM Immature Gran % 0.30 0.00 - 0.66 % [facility] MILLENNIUM Comment: Immature granulocytes(IG's)percentage and absolute count will include metamyelocytes, myelocytes, and promyelocytes. Blood smears from CBCs yielding IG's will be scanned manually for concordance. If this scan disagrees with the automated IG or if promyelocytes are noted, a manual differential will be performed. Immature Gran Absolute 0.04 0.00 - 0.05 x10(3)/mc L [facility] Blood specimen (specimen) 08/20/2013 1:45 PM EDT 08/20/2013 1:45 PM EDT Asad Biggs MD HEMATOLOGY ORDERABLE S Performing Organization Address [facility] Co de Phone Number [facility] * Magnesium (08/20/2013 1:45 PM EDT) Magnesium 0.74 0.69 - 1.07 mmol/L [facility] Blood specimen (specimen) 08/20/2013 1:45 PM EDT 08/20/2013 1:54 PM EDT Narrative Resulting Agency Comment Spec In Lab Asad Biggs MD CHEMISTRY ORDERABLES Performing Organization Address [facility] Co de Phone Number [facility] * (ABNORMAL) Cardiac Enzymes (08/20/2013 1:45 PM EDT) Troponin-T 0.34(H) <=0.03 ng/mL [facility] Comment: 0.03 ng/mL: Represents the 99th percentile upper reference limit for normals. >0.03 ng/mL: Elevated cardiac troponin T level indicative of myocardial damage. Diagnosis of acute, evolving or recent [place] requires a typical rise and gradual fall [...] consensus document of the Joint Society of Cardiology/[place] College of Cardiology Committee for the redefinition of myocardial infarction. Journal of the [place] College of Cardiology 2000; 36: 959-969] Creatine [...] intervals supplied above were not validated at [facility]. Results from pediatric patients should be interpreted [...] Biggs MD CHEMISTRY ORDERABLES Performing Organization Address [facility] Co de Phone Number ARIAN [employer] * (ABNORMAL) APTT (08/20/2013 1:45 PM EDT) Partial Thromboplastin Time 40(H) 25 - 35 sec ARIAN CERDAIUM Comment: Recommended therapeutic PTT range for full dose unfractionated heparin is 80-114 seconds. Blood specimen (specimen) 08/20/2013 1:45 PM EDT 08/20/2013 1:45 PM EDT Narrative Resulting Agency Comment Spec In Lab Asad Biggs MD HEMATOLOGY ORDERABLE S Performing Organization Address [facility] Co de Phone Number JILLIANBRIAN [facility] * Prothrombin Time (08/20/2013 1:45 PM EDT) Prothrombin Time 13.7 12.0 - 15.0 sec ARIAN CorMatrixYARYIUM Comment: [facility] Transfusion Committee Guidelines: INR less than [...] Performing Organization Address [facility] de Phone Number ARIAN NELSON [...] Performing Organization Address [facility] de Phone Number ARIAN NELSON [...] Performing Organization Address [facility] Co de Phone Number ARIAN NELSON * Blue Tube HOLD (08/20/2013 1:45 PM EDT) Blue Hold Sample in lab. ARIAN NELSON Blood specimen (specimen) 08/20/2013 1:45 PM EDT 08/20/2013 1:45 PM EDT Asad Biggs MD HEMATOLOGY ORDERABLE S Performing Organization Address City/[facility] Co de Phone Number [...] Coronary atherosclerosis of unspecified type of vessel, [place] or graft ACS (acute coronary syndrome) Intermediate coronary syndrome SOB (shortness of breath) Shortness of breath NSTEMI (non-ST elevated myocardial infarction) Acute myocardial infarction, subendocardial infarction, episode of care unspecified HTN (hypertension) Unspecified essential hypertension Hyperlipidemia Other and unspecified hyperlipidemia 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 (SVG to PDA closed 08/2013) Coronary atherosclerosis of unspecified type of vessel, [place] or graft Diabetes mellitus Type II or [...] than 145 sec X 2 - call house painter See Bolus dosing guidance for aPTT values [...] 1 dose 0013 (Given - Provider: Reny eKnt RN) insulin glargine (LANTUS) PEN injection 10 [...] than 145 sec X 2 - call house painter See Bolus dosing guidance for aPTT values [...] in sodium chloride 0.9% 50 mL infusion (FAMILY EDUCATOR) (CANCELED) CONTINUOUS PRN, Starting on Wed08/21/13 at 1345, Until Wed08/21/13 at 1438, Cath (Intra-Procedure), Routine 1345 (New Bag - Provider: Fredirck Villegas RN)1427 (Stopped - Provider: Evy Sánchez [...] Routine documented in this encounter Care Teams Instructor Robotics Relationship Specialty Start Date End Date Patric Al MD PCP - General 12/29/11 02/26/19 documented as of this encounter
--- OUTSIDE RECORDS SUMMARY | 2024-10-31 17:09 | XMS_ITS | Encounter Summary ---
Author Organization [facility] Address [facility] [place] [address] Care Team Providers Care Creative Art Director Name Role Phone None Primary Care Provider Unavailabl e Encounter Details Date Type Department Care Team (Late st Contact Info) Description 05/28/2024 Telephone [place] [phone] Dolly Dan MD [facility] [place] [address] Social History Tobacco Use Types Packs/Day Years Used Date Smoking Tobacco: Every Day Cigarettes 1 25 Started: 12/28/1986; Last attempted to quit: 12/28/2011 Alcohol Use Standard Drinks/Week Comments No 0 (1 standard drink = 0.6 oz pur e alcohol) [facility] Utilities Answer Date Recorded In the past 12 months has e [email or web address], gas, oil, or water [employer] threatened to shut off services in your [...] intact. The patient will be transferred to [facility] ED for further evaluation and determine whether his symptoms are related to vascular disease. documented in this encounter Plan of Treatment Upcoming Encounters Date Type Department Care Team (Late st Contact Info) Description 11/09/2024 1:30 PM EST Office [place] [phone] Isabela Hayward APRN [facility] [place] [address] 11/10/2024 10:00 AM EST Office Visit [place] [phone] Dai Whitman APRN 11/21/2024 2:15 PM EST Office [place] [phone] Dayanara Grover MD [facility] [place] [address] documented as of this encounter Visit Diagnoses Not on filedocumented in this encounter Care Teams Creative Art Director Relationship Specialty Start Date End Date None None PCP - General 05/27/24 09/17/24 documented as of this encounter
--- OUTSIDE RECORDS SUMMARY | 2024-10-31 17:09 | XMS_ITS | Encounter Summary ---
Author Organization [facility] Address [facility] [place] [address] Care Team Providers Care Computer Forwarding System Markup Clerk Name Role Phone Guanako Gusman MD Primary Care Provider [phone] Reason for Visit * Reason Onset Date Comments Medication Refill 08/25/2013 Encounter Details Date Type Department Care Team (Late st Contact Info) Description 08/25/2013 Refill Cardiology at [address] [phone] Sarthak Pollard MD [facility] [place] [address] Medication Refill Social History Tobacco Use Types [...] PM EST Office [place] [phone] Isabela Hayward, FAMILY LAW MEDIATOR [facility] [place] [address] 11/10/2024 10:00 AM EST Office [place] [phone] Dai Whitman, FAMILY LAW MEDIATOR 11/21/2024 2:15 PM EST Office [place] [phone] Dayanara Grover MD [facility] [place] [address] documented as of this encounter Visit Diagnoses Diagnosis CAD (coronary artery disease)- Primary Coronary atherosclerosis of unspecified type of vessel, [place] or graft documented in this encounter Care Teams Computer Forwarding System Markup Clerk Relationship Specialty Start Date End Date Guanako Gusman MD PCP - General 12/29/11 02/26/19 documented as of this encounter
--- OUTSIDE RECORDS SUMMARY | 2024-10-31 17:09 | XMS_ITS | Encounter Summary ---
Author Organization [facility] [place] [address] Care Team Providers Care Scale Assembly Set Up Worker Name Role Phone None Primary Care Provider Unavailabl e Encounter Details Date Type Department Care Team (Latest Contact Info) Description 05/30/2024 Travel Social History Tobacco Use Types Packs/Day Years Used Date Smoking Tobacco: Every Day Cigarettes 1 25 Started: 12/28/1986; Last attempted to quit: 12/28/2011 Alcohol Use Standard Drinks/Week Comments No 0 (1 standard drink = 0.6 oz pur e alcohol) [facility] Utilities Answer Date Recorded In the [...] living in a usp (including now)? No 05/29/2024 IPV Inpatient Questions [...] PM EST Office [place] [phone] Isabela Hayward APRN [facility] [address] [place] [address] 11/10/2024 10:00 AM EST Office Visit [place] [address] Dai Whitman APRN 11/21/2024 2:15 PM EST Office [place] [phone] Dayanara Grover MD [facility] [place] [address] documented as of this encounter Visit Diagnoses Not on filedocumented in this encounter Care Teams Scale Assembly Set Up Worker Relationship Specialty Start Date End Date None None PCP - General 05/27/24 09/17/24 documented as of this encounter
--- OUTSIDE RECORDS SUMMARY | 2024-10-31 17:10 | XMS_ITS | Encounter Summary ---
Author Organization [facility] Address [facility] [place] [address] Care Team Providers Care Burlap Worker Name Role Phone Patric Al MD Primary Care Provider [phone] Encounter Details Date Type Department Care Team (Late st Contact Info) Description 08/21/2013 11:35 AM EDT - 08/21/2013 12:35 PM EDT Surgery [place] [address] Sarthak Kahn MD [facility] [place] [address] CARDIAC CATHETERIZATION Social History Tobacco Use Types [...] appointments: -During 8am-5pm Wednesday through Wednesday call [phone] to speak with a nurse in the cardiology clinic -All other times call [phone] and ask to speak to the hand sign writer radiotelephone operator. Return to work/ usual actvities: 1 week, as tolerated. No squatting or lifting more than 10 pounds until then. Driving: No driving for 48 hours after catheterization. Follow up Appointments: PCP: PATRIC AL MD at [phone] to see you on WednesdayAugust 28 at 10:50 am. Director Of Business Systems, Dr. Oseguera, to see you on 09/20/14 at noon. Please call [phone] with questions. Diabetes medication instructions You should [...] juice or regular (not diet) soda 6 lifesVital Health Data Solutionss small box of raisins 4 glucose tablets [...] * CHEST PAIN (ANGINA): AFTER YOUR VISIT (SALVADOREAN) * CORONARY ARTERY DISEASE: AFTER YOUR VISIT (SALVADOREAN) * DIABETES DIET GUIDELINES: AFTER YOUR VISIT (SALVADOREAN) * HEART ATTACK: AFTER YOUR VISIT (SALVADOREAN) * HEMOGLOBIN A1C: ABOUT THIS TEST (SALVADOREAN) * HOME BLOOD GLUCOSE TEST: ABOUT THIS TEST (SALVADOREAN) * CARDIAC CATHETERIZATION: AFTER YOUR VISIT (SALVADOREAN) documented in this encounter Medications at Time [...] Patient is a 38 y/o man from [place], [place]. He is disabled and on Social [...] Office of Care Management (OCM) / Clinical Wrecker Operator (CRC)/ Initial Assessment Discussed patient with Provider [...] to drive with medication. 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 CURRENT FUNCTIONAL STATUS: same SOCIAL / FAMILY [...] D for prescriptions. Uses [facility] in [facility] CURRENT HOME/COMMUNITY SERVICES/EQUIPMENT: None STOCK PREPARER REFERRAL: Notified STOCK PREPARER, Alexandru Casas regarding pt's [place] Medicaid. Pt's [place] Medicaid is not active per Alexandru Casas STOCK PREPARER. PRIMARY CARE PHYSICIAN: PATRIC AL MD ALEJANDRA [address] [facility] [id number] POTENTIAL DISCHARGE NEEDS: None identified at this [...] while hospitalized. Awaiting Endocrine consult. Calista Jaimes ENVIRONMENTAL AID CRC/Jaye Dennison MSN BSN RN CRC Office of Care Managment Pager [phone] . * Padma Marquez I, RD - 08/22/2013 11:42 AM EDT Nutrition Services Education Note Diet Rx: [facility]/Low Fat Patient Active Problem List Diagnosis Code [...] loss options discussed Phase II Referral: [facility] Activity Summary: By discharge, patient will be [...] up with PCP or Dr Bird in [place] I reviewed the patient with and agree with the recommendations and plans * Sarthak Pollard MD - 08/22/2013 7:18 AM EDT Inpatient Cardiology Progress Note Patient Name: Lux Dixon Service: SOLID STATE TESTER / PA Responsible Attending: Dr Plolard Reason for continued hospitalization: Evaluation and management of NSTEMI S/p cardiac catheterization, PCI of LCX, being seen by Cardiac Rehabilitation [facility] 10, Endocrine consulted Active Problems: [...] ??? [DISCONTINUED] sodium chloride 0.9% Stopped (08/20/13 6435) Physical Exam: Vital Signs: Last value Range [...] 2v CABG and recurrent angina, +NSTEMI pending [facility]. Stable. Plan: 1. CAD/ CABGx2, [...] discussed with Dr. Pollard. JUSTIN OROSCO Pager [phone] 08/22/2013 Cardiology Attending Note: I interviewed and [...] as oral agents. He lives in the [facility]. We will set him up to see Dr. Reji Lucia or one of his colleagues. Time spent at bedside and coordinating care: 35 mins. Sarthak Pollard MD, MS Staff Director Of Business Systems Pager [phone] * Latonya Sanders - 08/21/2013 10:28 PM [...] pulses are palpable. Latonya Sanders MD # [id number] * Sarthak Pollard MD - 08/21/2013 8:36 AM EDT Inpatient Cardiology Progress Note Patient Name: Lxu Dixon Jr. Service: SOLID STATE TESTER / PA Responsible Attending: Dr Pollard Reason for continued hospitalization: Evaluation and management of NSTEMI Active Problems: Active Hospital Problems Diagnosis ??? Coronary artery disease Priority: High NSTEMI 12-29-2011 Cath - LAD, PDA and Distal Circ Disease CABG 01-04-2012 (MARTINEZ-LAD, SVG-PDA) ??? TR (tricuspid regurgitation), mild Mild [place] ??? CAD (coronary artery disease) 2009 , [...] rhythm, [facility] Meds: Scheduled Meds: ??? sodium chloride [...] mcg/min (08/21/13215) ??? heparin 2,150 Units/hr (08/21/13 7891) ??? sodium chloride 0.9% Stopped (08/20/13 0709) Physical Exam: Vital Signs: Last value Range [...] 2v CABG and recurrent angina, +NSTEMI pending [facility]. Plan: 1. CAD/ CABGx2, [facility] today Needs risk factors addressed [...] to his RPDA and occlusion of his kake RCA since that time of his last [...] 35 mins. Sarthak Pollard MD, MS Staff Director Of Business Systems Pager [phone] * Reny Kent RN - 08/20/2013 10:08 [...] 00 and 0200. 0310) Patient alerted staff assistant that he is experiencing 3/10 left arm [...] Name: Lux Dixon Jr. MRN No - [id number] Date of - 1975 Age - 38 [...] MARTINEZ-LAD, SVG-PDA and Obesity transferred from [facility] because of CP which started yesterday while [...] relieved after 1 shot of morphine at [place]. His work showed NSR ECG w/o ST changes, elevated 2nd set of trop and negative D-dimer, wbc of 15K, normal electrolytes, glucose of 546, normal BUN/cr. He was [id number] of plavix and started on heparin gtt. He had some CP on arrival to [facility] which was -01/15. ECG was normal. Dr. [...] TOVAR at [facility] MA[facility] OR ??? Cabg, artery-vein, single 01/04/2012 @CABG, VENOUS & ARTERIAL GRAFT;SINGLE VEIN GRAFT performed by INNA TOVAR at [facility] OR Family History: Family [...] CABG MARTINEZ-LAD, SVG-PDA in 2011 transferred from [place] because of CP which is different than his previous episode of CP. This time pain started in arm and radiating to chest and is also mild 1-3 /10. He also drove for 6 hrs yesterday. He had positive tropsat [place] although his ECG was negative. The pain relieved after leaning forward. I have above mentioned DD and also his d-dimer at [place] was negative so low prob of PE. I would admit for ACS and cont heparin. i would also keep him NPO and starting on nitro drip per Dr. Horvath's rec. Admit to telemetry Cycle bio-markers Repeat EKG Continue aspirin, simvastatin, metoprolol, plavix 300 mg x1 (given at [place]) and heparin Check fasting lipid profile and [...] was reviewed and signed. DM - at [place] his A1c was 6 Holding metformin and [...] clinical decision making Provider: Eben Bingham Pager: [phone] documented in this encounter Procedure Notes * Provider, Scanning - 08/24/2013 11:52 AM EDTAssociated Order(s): SCAN DOC: CASH MANAGEMENT SPECIALIST * Provider, Scanning - 08/21/2013 3:30 PM [...] of SVG to RPDA and occlusion of kake RCA. LVEDP . PCI of mid and [...] up with PCP or Dr Bird in [place] ??? Obesity Weight is 130.5 Kg [...] in 2011 and obesity transferred from [facility] for chest pain which started the day [...] or vomiting. Hospital Course: On admission to [facility], he had CP on arrival to [facility] which was 1-3. ECG was normal. He [...] occlusion of SVG to RPDA, occlusion of kake RCA. The SVG to RCA was not [...] up with PCP or Dr Bird in [place] Smoking cessation was advised & discussed. [...] appointments: -During 8am-5pm Wednesday through Wednesday call [phone] to speak with a nurse in the cardiology clinic -All other times call [phone] and ask to speak to the hand sign writer radiotelephone operator. Return to work/ usual actvities: 1 week, as tolerated. No squatting or lifting more than 10 pounds until then. Driving: No driving for 48 hours after catheterization. Follow up Appointments: PCP: PATRIC AL MD at [phone] to see you on WednesdayAugust 28 at 10:50 am. Director Of Business Systems, Dr. Oseguera, to see you on 09/20/14 at noon. Please call [phone] with questions. Diabetes medication instructions You should [...] Complete By Expires Referral to Cardiac Rehab [[id number] Custom] Process Instructions: If no progress note charted, please enter Clinical details in comments. Scheduling Instructions: Comments: Pt will participate in cardiac rehab @ [facility] Questions: Responses: Reason for referral NSTEMI Provider Contact Information: JALEN Billingsley NP Dr Bruce Andrus [phone] Discharge References/Attachments: Discharge References/Attachments CHEST PAIN (ANGINA): AFTER YOUR VISIT (SALVADOREAN) CORONARY ARTERY DISEASE: AFTER YOUR VISIT (SALVADOREAN) DIABETES DIET GUIDELINES: AFTER YOUR VISIT (SALVADOREAN) HEART ATTACK: AFTER YOUR VISIT (SALVADOREAN) HEMOGLOBIN A1C: ABOUT THIS TEST (SALVADOREAN) HOME BLOOD GLUCOSE TEST: ABOUT THIS TEST (SALVADOREAN) Signed: JUSTIN OROSCO Pager [phone] DATE: 08/22/2013 * Miscellaneous - Provider, Scanning - 08/20/2013 2:59 PM EDT * Miscellaneous - Provider, Scanning - 08/20/2013 2:58 PM EDT documented in this encounter Plan of Treatment Upcoming Encounters Date Type Department Care Team (Late st Contact Info) Description 11/09/2024 1:30 PM EST Office Visit [place] [address] Isabela Hayward APRN [facility] [place] [address] 11/10/2024 10:00 AM EST Office [place] [phone] Dai Whitman APRN 11/21/2024 2:15 PM EST Office [place] [phone] Dayanara Grover MD [facility] [place] [address] Scheduled Orders Name Type Priority Associated Diagnoses Orde r Schedule EKG 12 Lead ECG STAT Chest pain One Time for 1 Occurrences starting 08/20/2013 until 08/20/2013 Scheduled Referrals Name Type Priority Associated Diagnoses Orde r Schedule Referral to Cardiac Rehab Outpatient Referral Routine NSTEMI (non-ST elevated myocardial infarction) Ordered: 08/22/2013 documented as of this encounter Procedures Procedure Name Priority Date/Time Associated Diagnosis Comments CASH MANAGEMENT SPECIALIST SCAN 08/24/2013 11:52 AM EDT POCT GLUCOSE Routine 08/22/2013 11:52 AM EDT POCT GLUCOSE Routine 08/22/2013 7:47 AM EDT EKG 12-LEAD Routine 08/22/2013 7:45 AM EDT Chest pain BMP W/FASTING GLUCOSE Routine 08/22/2013 4:03 AM EDT DIFFERENTIAL, AUTOMATED Routine 08/22/20 13 4:03 AM EDT CARDIAC ENZYMES ([facility]/CGP) Routine 08/22/2013 4:03 AM EDT CBC (WITH DIFF) Routine 08/22/2013 4:03 AM EDT POCT GLUCOSE Routine 08/21/2013 10:43 PM EDT POCT GLUCOSE Routine 08/21/2013 8:28 PM EDT CARDIAC ENZYMES ([facility]/CGP) STAT 08/21/2013 6:36 PM EDT POCT GLUCOSE [...] Routine 08/21/20 3:53 AM EDT CARDIAC ENZYMES ([facility]/CGP) Routine 08/21/2013 3:53 AM EDT APTT Routine [...] STAT 08/20/2013 11:51 PM EDT CARDIAC ENZYMES ([facility]/CGP) STAT 08/20/2013 9:40 PM EDT XR CHEST [...] 08/20/2013 1: 45 PM EDT CARDIAC ENZYMES ([facility]/CGP) Routine 08/20/2013 1:45 PM EDT APTT Routine 08/20/2013 1:45 PM EDT PROTHROMBIN TIME Routine 08/20/2013 1:45 PM EDT CBC (WITH DIFF) Routine 08/20/2013 1:45 PM EDT MAGNESIUM Routine 08/20/2013 1:45 PM EDT BASIC METABOLIC PANEL Routine 08/20/2013 1:45 PM EDT POCT GLUCOSE Routine 08/20/2013 1:23 PM EDT documented in this encounter Results * SCAN DOC: CASH MANAGEMENT SPECIALIST (08/24/2013 11:52 AM EDT) Anatomical Region Laterality [...] TEST O GILDA Performing Organization Address [facility] de Phone Number [facility] * POCT Glucose (08/22/2013 7:47 AM EDT) Glucose, POC 199 60 - 199 mg/dL [facility] Comment: Supplemental ranges: <110 mg/dL before meals <200 mg/dL all other times of the day Blood specimen (specimen) 08/22/2013 7:47 AM EDT 08/22/2013 7:47 AM EDT Asad Biggs MD POINT OF CARE TEST O GILDA Performing Organization Address [facility]/ZIP Co de Phone Number CERNER MILLENNIUM * EKG 12 Lead (08/22/2013 7:45 AM EDT) Ventricular rate 79 BPM MUSE SYSTEM Atrial Rate 79 BPM MUSE SYSTEM P-R Interval 182 ms MUSE SYSTEM QRS Duration 108 ms MUSE SYSTEM Q-T Interval 406 ms MUSE SYSTEM QTC Calculated (Bezet) 465 ms MUSE SYSTEM Calculated P Aurora 57 degrees MUSE SYSTEM Calculated R Aurora 23 degrees MUSE SYSTEM Calculated T Aurora 2 degrees MUSE SYSTEM INTERPRETATION Normal sinus [...] EDT Tim Uribe MD HEMATOLOGY ORDERAB LES [facility] * (ABNORMAL) BMP w/fasting Glucose [...] Mellitus, Position Statement from the [place] Diabetes Association. ??Diabetes Care, Volume 33, Supplement 1, Nov 2009 Blood Urea Nitrogen 6(L) 10 - 20 mg/dL CERNER MILLENNIUM Creatinine 0.62(L) 0.80 - 1.50 mg/dL CERNER MILLENNIUM Comment: Please note that the pediatric reference intervals supplied above were not validated at [facility]. Results from pediatric patients should be interpreted [...] Lab Tim Uribe MD CHEMISTRY ORDERABL ES [facility] OMAR * (ABNORMAL) Cardiac Enzymes (08/22/2013 4:03 AM EDT) Troponin-T 0.95(H) <=0.03 ng/mL [facility]ERNER MILLENNIUM Comment: 0.03 ng/mL: Represents the 99th percentile upper reference limit for normals. >0.03 ng/mL: Elevated cardiac troponin T level indicative of myocardial damage. Diagnosis of acute, evolving or recent SD requires a typical rise and gradual fall [...] of the Joint Society of Cardiology/[place] College of Cardiology Committee for the redefinition of myocardial infarction. Journal of the [place] College of Cardiology 2000; 36: 959-969] Creatine [...] MD HEMATOLOGY ORDERAB LES Performing Organization Address [facility] Co de Phone Number [facility] * POCT Glucose (08/21/2013 10:43 PM EDT) Glucose, POC 193 60 - 199 mg/dL [facility] Comment: Supplemental ranges: <110 mg/dL before meals <200 mg/dL all other times of the day Blood specimen (specimen) 08/21/2013 10:43 PM EDT 08/21/2013 10:43 PM EDT Asad Biggs MD POINT OF CARE TEST O RDERABLES Performing Organization Address [facility] Co de Phone Number [facility] * (ABNORMAL) POCT Glucose (08/21/2013 8:28 PM EDT) Glucose, POC 259(H) 60 - 199 mg/dL [facility] Comment: Supplemental ranges: <110 mg/dL before meals <200 mg/dL all other times of the day Blood specimen (specimen) 08/21/2013 8:28 PM EDT 08/21/2013 8:28 PM EDT Asad Biggs MD POINT OF CARE TEST O RDERABLES Performing Organization Address [facility] Co de Phone Number [facility] * (ABNORMAL) Cardiac Enzymes (08/21/2013 6:36 PM EDT) Troponin-T 0.93(H) <=0.03 ng/mL [facility] Comment: 0.03 ng/mL: Represents the 99th percentile upper reference limit for normals. >0.03 ng/mL: Elevated cardiac troponin T level indicative of myocardial damage. Diagnosis of acute, evolving or recent SD requires a typical rise and gradual fall [...] of the Joint Society of Cardiology/[place] College of Cardiology Committee for the redefinition of myocardial infarction. Journal of the [place] College of Cardiology 2000; 36: 959-969] Creatine Kinase 594(H) 0 - 200 unit/L [facility] Blood specimen (specimen) 08/21/2013 6:36 PM EDT 08/21/2013 6:47 PM EDT Narrative Resulting Agency Comment Spec In Lab Sarthak Pollard MD CHEMISTRY ORDERABLES Performing Organization Address [facility] Co de Phone Number [facility] * POCT Glucose (08/21/2013 4:25 PM EDT) Pathologist [facility] Glucose, POC 138 60 - 199 mg/dL [facility] Comment: Supplemental ranges: <110 mg/dL before meals <200 mg/dL all other times of the day Blood specimen (specimen) 08/21/2013 4:25 PM EDT 08/21/2013 4:25 PM EDT Asad Biggs MD POINT OF CARE TEST O RDERABLES Performing Organization Address [facility] Co de Phone Number [facility] * EKG 12 Lead (08/21/2013 2:53 PM EDT) Ventricular rate 75 BPM MUSE SYSTEM Atrial Rate 75 BPM MUSE SYSTEM P-R Interval 172 ms MUSE SYSTEM QRS Duration 106 ms MUSE SYSTEM Q-T Interval 388 ms MUSE SYSTEM QTC Calculated (Bezet) 433 ms MUSE SYSTEM Calculated P Aurora 11 degrees MUSE SYSTEM Calculated R Aurora 35 degrees MUSE SYSTEM Calculated T Aurora 1 degrees MUSE SYSTEM INTERPRETATION Normal sinus rhythm Normal ECG When compared with ECG of 21-AUG-2013 02:54, No significant change was found Confirmed by Pablito Torres MD ([id number]) on 08/22/2013 3:01:48 PM MUSE SYSTEM 08/21/2013 2:53 PM EDT 08/22/2013 3:01 PM EDT Tim Uribe MD ECG ORDERABLES Performing Organization Address [facility] Co de Phone Number [...] TEST O RDERABLES Performing Organization Address [facility] de Phone Number [facility] * (ABNORMAL) APTT (08/21/2013 11:09 AM EDT) Partial Thromboplastin Time 63(H) 25 - [address] [facility] Comment: Recommended therapeutic PTT range for full dose unfractionated heparin is 80-114 seconds. Blood specimen (specimen) 08/21/2013 11:09 AM EDT 08/21/2013 11:42 AM EDT Narrative Resulting Agency Comment Spec In Lab Asad Biggs MD HEMATOLOGY ORDERABLE S Performing Organization Address [facility] Co de Phone Number [facility] * Echocardiogram Transthoracic(Leb) (08/21/2013 9:16 AM EDT) EF 65 HEARTLAB SYSTEM Anatomical Region Laterality Modality Other 08/21/2013 Narrative 08/21/2013 9:51 AM EDT Procedure: ? Transthoracic Echocardiogram Patient: ? QUIANA Llanos ?(Age): 1975(38) Med Rec#: ?[id number] ? Sex: ?M ? Site Loc: ?[facility] ? Ht / Wt: ??180(cm)/127(kg) Pt. Loc: ? Adult Floor ?BSA: ?2.52 Study Date: ?08/21/2013 ? Pt. Type: Inpatient Tape: ? Referring: Eben Bingham Referring: AKANKSHA CAI Nuclear Waste Process Operator: Patric Blunt [facility] Interpreting Fellow: Luca Wilson ([id number]) Diagnosis: ??Chest pain (786.50) CPT Code(s): ??Echo Full (02308), ??Spectral Doppler (35392), ??Color Doppler (99172), Indication(s): ??Chest Pain Rhythm: HR ?BP ?121/62 [...] ? Mid-Inferior ?Normal ? Mid-Inferoseptal ?Normal ? Bonnie-Septal ? Normal ? Bonnie-Anterior ? Normal ? Bonnie-Lateral ?Normal ? Bonnie-Inferior ? Normal ? Bonnie-Tip ?Normal ? Chambers ?Value ?Units (Range) ? [...] 08/21/2013 09:50:27 Images reviewed and interpretation verified [facility] Cardiac Ultrasound Laboratory Resulting Agency Comment [id number] Procedure Note Umair Brock MD - 08/21/2013 Procedure: Transthoracic Echocardiogram Patient: QUIANA AUSTIN [place] (Age): 1975(38) Med Rec#: [id number] Sex: M Site Loc: [facility] Ht / Wt: 180(cm)/127(kg) Pt. Loc: Adult Floor BSA: 2.52 Study Date: 08/21/2013 Pt. Type: Inpatient Tape: Referring: OtiliaEben Referring: AKANKSHA CAI Nuclear Waste Process Operator: Patric Blunt [facility] Interpreting Fellow: Luca Wilson ([id number]) Diagnosis: Chest pain (786.50) CPT Code(s): Echo Full (66263), Spectral Doppler (76838), Color Doppler (59698), Indication(s): Chest Pain Rhythm: HR BP 121/62 [...] Normal Mid-Posterolateral Normal Mid-Inferior Normal Mid-Inferoseptal Normal Bonnie-Septal Normal Bonnie-Anterior Normal Bonnie-Lateral Normal Bonnie-Inferior Normal Bonnie-Tip Normal Chambers Value Units (Range) LV EF [...] 08/21/2013 09:50:27 Images reviewed and interpretation verified [facility] Cardiac Ultrasound Laboratory Eben Ruiz MD ECHO ORDERABLES * (ABNORMAL) POCT Glucose (08/21/2013 8:33 AM EDT) Pathologist [facility] Glucose, POC 202(H) 60 - 199 mg/dL [...] MD HEMATOLOGY ORDERABLE S Performing Organization Address City/[facility] Co de Phone Number CERBRIAN [...] damage. Diagnosis of acute, evolving or recent SD requires a typical rise and gradual fall [...] of the Joint Society of Cardiology/[place] College of Cardiology Committee for the redefinition of myocardial infarction. Journal of the [place] College of Cardiology 2000; 36: 959-969] Creatine Kinase 777(H) 0 - 200 unit/L ARIAN CERDAIUM Blood specimen (specimen) 08/21/2013 3:53 AM EDT 08/21/2013 4:00 AM EDT Narrative Resulting Agency Comment Spec In Lab Eben Ruiz MD CHEMISTRY ORDERABLES ARIAN CAENNIUM * (ABNORMAL) BMP w/fasting Glucose (08/21/2013 3:53 AM EDT) [facility] Glucose Fasting 230(H) 65 - 99 mg/dL [...] Mellitus, Position Statement from the [place] Diabetes Association. ??Diabetes Care, Volume 33, Supplement 1, Nov 2009 Blood Urea Nitrogen 15 10 - 20 mg/dL CERNER MILLENNIUM Creatinine 0.67(L) 0.80 - 1.50 mg/dL CERNER MILLENNIUM Comment: Please note that the pediatric reference intervals supplied above were not validated at [facility]. Results from pediatric patients should be interpreted [...] HEMATOLOGY ORDERABLE S Performing Organization Address [facility] de Phone Number ARIAN NELSON * Prothrombin Time (08/21/2013 3:53 AM EDT) Prothrombin Time 13.5 12.0 - 15.0 sec [facility] ROBYEN[facility]UM Comment: [facility] Transfusion Committee Guidelines: INR less than 2.0, PTT less than OR equal to 43.5 seconds, or Fibrinogen greater than or equal to 100 mg/dl indicate adequate procoagulant activity for hemostasis in patients without underlying bleeding disorders. International Normalization Ratio 1.0 0.9 - 1.1 [facility] Blood specimen (specimen) 08/21/2013 3:53 AM EDT 08/21/2013 4:00 AM EDT Narrative Resulting Agency Comment Spec In Lab Asad Biggs MD HEMATOLOGY ORDERABLE S Performing Organization Address [facility] de Phone Number ARIAN NELSON * (ABNORMAL) Triglyceride (08/21/2013 3:53 AM EDT) Triglyceride 733(H) <=149 mg/dL [facility] Comment: Reference Range: Normal triglycerides: ??<150 mg/dL Borderline high: ??150-199 mg/dL High: ??200-499 mg/dL Very high: ??>lm=681 mg/dL ELISEO 2001; 285(19):2717-1999 Blood specimen (specimen) 08/21/2013 3:53 AM EDT 08/21/2013 4:00 AM EDT Narrative Resulting Agency Comment Spec In Lab Eben Ruiz MD CHEMISTRY ORDERABLES Performing Organization Address [facility] de Phone Number ARIAN NELSON * (ABNORMAL) HDL/Cholesterol Profile (08/21/2013 3:53 AM EDT) Cholesterol, Total 218(H) <=199 mg/dL [facility] Comment: Recommendations of the NCEP Adult Treatment Panel for the following risk cutoff thresholds for the [place] population: Desirable: <200 mg/dL Borderline High: 200-239 mg/dL High: > or = 240 mg/dL HDL Cholesterol 24(L) >=40 mg/dL [facility] Comment: Reference range: ??Low HDL: ?? < 40 mg/dL ??Normal: ?40-60 mg/dL ??Desirable: > 60 mg/dL ELISEO 2001; 285(19):8205-3664 Cholesterol/HDL Ratio 9.1 ratio [facility] Comment: A Cholesterol to HDL ratio below 4:1 is desirable. ??Studies suggest that increased CAD risk occurs at ratios above 5 for females and above 6 for men. ? [place] Heart Association ??(http://www.americanheart.org) ? Jazmine Int Med, 1994; 121:641 ? AM J Med, 1998; 105(1A):48S Blood specimen (specimen) 08/21/2013 3:53 AM EDT 08/21/2013 4:00 AM EDT Narrative Resulting Agency Comment Spec In Lab Eben Ruiz MD CHEMISTRY ORDERABLES [facility] * (ABNORMAL) LDL Cholesterol, Direct (08/21/2013 3:53 AM EDT) LDL Cholesterol, Direct 107(H) <=99 mg/dL [facility] Comment: The National Cholesterol Education Program (NCEP) has set the following guidelines for LDL Cholesterol: Reference range: ?? Optimal: ?<100 mg/dL ?? Near Optimal/Above Optimal: ?? 100-129 mg/dL ?? Borderline high: ?130-159 mg/dL ?? High: ? 160-189 mg/dL ?? Very high: ?>kz=726 mg/dL ELISEO 2001: 285(19):3058-0022 Blood specimen (specimen) 08/21/2013 3:53 AM EDT 08/21/2013 4:00 AM EDT Narrative Resulting Agency Comment Spec In Lab Eben Ruiz MD CHEMISTRY ORDERABLES [facility] * (ABNORMAL) Hemoglobin A1c (08/21/2013 3:53 AM EDT) Hemoglobin A1c 10.0(H) 4.3 - 6.1 % [facility] Comment: The [place] Diabetes Association (ADA) has stated that HbA1c [...] 2013:36;suppl 1:S11-S66. Estimated Average Glucose 240 mg/dL [facility] Comment: eAG equivalents for HbA1c percentages: [...] into estimated average glucose values. ??Diabetes Care 2008:31(8):7328-8417. Blood specimen (specimen) 08/21/2013 3:53 AM EDT 08/21/2013 4:00 AM EDT Narrative Resulting Agency Comment Spec In Lab Eben Ruiz MD CHEMISTRY ORDERABLES Performing Organization Address [facility] de Phone Number [facility] * EKG 12 Lead (08/21/2013 2:54 AM EDT) Ventricular rate 68 BPM MUSE SYSTEM Atrial Rate 68 BPM MUSE SYSTEM P-R Interval 188 ms MUSE SYSTEM QRS Duration 104 ms MUSE SYSTEM Q-T Interval 406 ms MUSE SYSTEM QTC Calculated (Bezet) 431 ms MUSE SYSTEM Calculated P [place] 4 degrees MUSE SYSTEM Calculated R [place] 28 degrees MUSE SYSTEM Calculated T [place] 21 degrees MUSE SYSTEM INTERPRETATION Normal sinus rhythm Nonspecific T wave abnormality Abnormal ECG When compared with ECG of 20-AUG-2013 15:19, No significant change was found Confirmed by Brian DE Pablito ([id number]) on 08/21/2013 12:56:35 PM MUSE SYSTEM 08/21/2013 2:54 AM EDT 08/21/2013 12:56 PM EDT Eben Ruiz MD ECG ORDERABLES Performing Organization Address [facility] de Phone Number MUSE SYSTEM [...] TEST O RDERABLES Performing Organization Address [facility] de Phone Number ARIAN NELSON * (ABNORMAL) POCT Glucose (08/20/2013 11:54 PM EDT) Glucose, POC 290(H) 60 - 199 mg/dL [facility] Comment: Supplemental ranges: <110 mg/dL before meals <200 mg/dL all other times of the day Blood specimen (specimen) 08/20/2013 11:54 PM EDT 08/20/2013 11:54 PM EDT Asad Biggs MD POINT OF CARE TEST O RDERAHERNANDEZ Performing Organization Address [facility] de Phone Number JILLIANBRIAN NELSON * APTT (08/20/2013 11:51 PM EDT) Partial Thromboplastin Time 35 25 - 35 sec [facility] Comment: Recommended therapeutic PTT range for full dose unfractionated heparin is 80-114 seconds. Blood specimen (specimen) 08/20/2013 11:51 PM EDT 08/21/2013 12:01 AM EDT Narrative Resulting Agency Comment Spec In Lab Asad Biggs MD HEMATOLOGY ORDERABLE S Performing Organization Address [facility] de Phone Number ARIAN NELSON * (ABNORMAL) Cardiac Enzymes (08/20/2013 9:40 PM EDT) Troponin-T 0.74(H) <=0.03 ng/mL [facility] Comment: 0.03 ng/mL: Represents the 99th percentile upper reference limit for normals. >0.03 ng/mL: Elevated cardiac troponin T level indicative of myocardial damage. Diagnosis of acute, evolving or recent SD requires a typical rise and gradual fall [...] of the Joint Society of Cardiology/[place] College of Cardiology Committee for the redefinition of myocardial infarction. Journal of the [place] College of Cardiology 2000; 36: 959-969] Creatine [...] Biggs MD POINT OF CARE TEST O RDERAInhale Digital Performing Organization Address [facility] Co de Phone Number [facility] * (ABNORMAL) POCT Glucose (08/20/2013 5:03 PM EDT) Glucose, POC 230(H) 60 - 199 mg/dL [facility] Comment: Supplemental ranges: <110 mg/dL before meals <200 mg/dL all other times of the day Blood specimen (specimen) 08/20/2013 5:03 PM EDT 08/20/2013 5:03 PM EDT Asad Biggs MD POINT OF CARE TEST O RDERAInhale Digital Performing Organization Address [facility] Co de Phone Number [facility] * EKG 12 Lead (08/20/2013 3:19 PM EDT) Ventricular rate 68 BPM MUSE SYSTEM Atrial Rate 68 BPM MUSE SYSTEM P-R Interval 182 ms MUSE SYSTEM QRS Duration 100 ms MUSE SYSTEM Q-T Interval 410 ms MUSE SYSTEM QTC Calculated (Bezet) 435 ms MUSE SYSTEM Calculated P [place] 3 degrees MUSE SYSTEM Calculated R [place] 19 degrees MUSE SYSTEM Calculated T [place] 35 degrees MUSE SYSTEM INTERPRETATION Normal sinus [...] Biggs MD CHEMISTRY ORDERABLES Performing Organization Address [facility] de Phone Number ARIAN NELSON * (ABNORMAL) Cardiac Enzymes (08/20/2013 1:45 PM EDT) Troponin-T 0.34(H) <=0.03 ng/mL ARIAN NELSON Comment: 0.03 ng/mL: Represents the 99th percentile upper reference limit for normals. >0.03 ng/mL: Elevated cardiac troponin T level indicative of myocardial damage. Diagnosis of acute, evolving or recent SD requires a typical rise and gradual fall [...] of the Joint Society of Cardiology/[place] College of Cardiology Committee for the redefinition of myocardial infarction. Journal of the [place] College of Cardiology 2000; 36: 959-969] Creatine Kinase 505(H) 0 - 200 unit/L ARIAN NELSON Blood specimen (specimen) 08/20/2013 1:45 PM EDT 08/20/2013 1:54 PM EDT Narrative Resulting Agency Comment Spec In Lab Asad Biggs MD CHEMISTRY ORDERABLES Performing Organization Address [facility] Co de Phone Number ARIAN NELSON * (ABNORMAL) Basic Metabolic Panel (non-fasting) (08/20/2013 1:45 PM EDT) [facility] Glucose 246(H) 60 - 199 mg/dL [facility] Comment:Diabetes: >=200 mg/d L plus symptoms Blood Urea Nitrogen 15 10 - 20 mg/dL [facility] Creatinine 0.68(L) 0.80 - 1.50 mg/dL [facility] Comment: Please note that the pediatric reference intervals supplied above were not validated at [facility]. Results from pediatric patients should be interpreted [...] Thromboplastin Time 40(H) 25 - [address] [facility] Comment: Recommended therapeutic PTT range for full dose unfractionated heparin is 80-114 seconds. Blood specimen (specimen) 08/20/2013 1:45 PM EDT 08/20/2013 1:45 PM EDT Narrative Resulting Agency Comment Spec In Lab Asad Biggs MD HEMATOLOGY ORDERABLE S Performing Organization Address [facility] de Phone Number [facility] * Prothrombin Time (08/20/2013 1:45 PM EDT) Prothrombin Time 13.7 12.0 - 15.[address] [facility] Comment: [facility] Transfusion Committee Guidelines: INR less than 2.0, PTT less than OR equal to 43.5 seconds, or Fibrinogen greater than or equal to 100 mg/dl indicate adequate procoagulant activity for hemostasis in patients without underlying bleeding disorders. International Normalization Ratio 1.0 0.9 - 1.[address] [facility] Blood specimen (specimen) 08/20/2013 1:45 PM EDT 08/20/2013 1:45 PM EDT Narrative Resulting Agency Comment Spec In Lab Asad Biggs MD HEMATOLOGY ORDERABLE S Performing Organization Address [facility] de Phone Number [facility] * D-Dimer, Quantitative (08/20/2013 1:45 PM EDT) D-Dimer <200 0 - 500 FEU ng/ml [facility] Comment: The D-Dimer assay is used [...] HEMATOLOGY ORDERABLE S Performing Organization Address [facility] Co de Phone Number CERBRIAN [...] ORDERABLE S Performing Organization Address [facility] de Phone Number ARIAN NELSON * Green Tube HOLD (08/20/2013 1:45 PM EDT) Green Hold Sample in lab. ARIAN NELSON Blood specimen (specimen) 08/20/2013 1:45 PM EDT 08/20/2013 1:45 PM EDT Asad Biggs MD CHEMISTRY ORDERABLES Performing Organization Address [facility] Phone Number ARIAN NELSON * (ABNORMAL) POCT Glucose (08/20/2013 1:23 PM EDT) Glucose, POC 243(H) 60 - 199 mg/dL ARIAN NELSON Comment: Supplemental ranges: <110 mg/dL before meals <200 mg/dL all other times of the day Blood specimen (specimen) 08/20/2013 1:23 PM EDT 08/20/2013 1:23 PM EDT Asad Biggs MD POINT OF CARE TEST O RDERABLES Performing Organization Address [facility] de Phone Number ARIAN NELSON documented [...] in sodium chloride 0.9% 50 mL infusion (ELECTRIC UTILITY LINEWORKER) CONTINUOUS PRN, Starting on Wed08/21/13 at 1345, [...] than 145 sec X 2 - call washhouse worker See Bolus dosing guidance for aPTT [...] Reny Kent RN) 0838 (Given - Provider: Loal Tipton RN - Comment: pt was having [...] than 145 sec X 2 - call washhouse worker See Bolus dosing guidance for aPTT [...] in sodium chloride 0.9% 50 mL infusion (ELECTRIC UTILITY LINEWORKER) (CANCELED) CONTINUOUS PRN, Starting on Wed08/21/13 at [...] Routine documented in this encounter Care Teams Burlap Worker Relationship Specialty Start Date End Date Patric Al MD PCP - General 12/29/11 02/26/19 documented as of this encounter
--- OUTSIDE RECORDS SUMMARY | 2024-10-31 17:10 | XMS_ITS | Encounter Summary ---
Author Organization Formerly [facility] Address [facility] [place] [address] Care Team Providers Care Public Health Informatician Name Role Phone Guanako Gusman MD Primary Care Provider [phone] Reason for Visit * Reason Onset Date Comments Follow-up 01/18/2012 Called patient t o follow up on smoking cessation counseling done while he was inpatient. Encounter Details Date Type Department Care Team (Late st Contact Info) Description 01/18/2012 Telephone [place] [address] Vibha Martines APRN Follow-up (Called patient to [...] He wanted to continue to go [place]. We agreed that I would call him [...] PM EST Office Visit Infectious Disease at [place] [phone] Isabela Hayward APRN [facility] [place] [address] 11/10/2024 10:00 AM EST Office Visit [place] [address] Dai Whitman APRN 11/21/2024 2:15 PM EST Office Visit Endocrinology at [place] [phone] Dayanara Grover MD [facility] [place] [address] documented as of this encounter Visit Diagnoses Not on filedocumented in this encounter Care Teams Public Health Informatician Relationship Specialty Start Date End Date Guanako Gusman MD PCP - General 12/29/11 02/26/19 documented as of this encounter
--- OUTSIDE RECORDS SUMMARY | 2024-10-31 17:10 | XMS_ITS | Encounter Summary ---
Author Organization [facility] [place] [address] Care Team Providers Care Special Forces Senior Sergeant Name Role Phone Patric Al MD Primary Care Provider [phone] Reason for Visit * Reason Onset Date Comments Medication Refill 01/11/2012 Encounter Details Date Type Department Care Team (Late st Contact Info) Description 01/11/2012 Refill [place] [address] Zak Yoo III, PA Social History Tobacco [...] - 01/11/2012 4:59 PM EST TELEPHONE NOTE [phone] [id number] y.o. Date of call: 01/11/2012CABG X [...] Jr. Home Medication Instructions CRAIG: Printed on:01/11/12 3156 Medication Information HYDROmorphone (DILAUDID) 4 mg tablet [...] updated today. Signed: ZAK YOO III, PA-C [facility] Section of Cardiothoracic Surgery Date: 01/11/12 PATRIC AL MD documented in this encounter Plan of Treatment Upcoming Encounters Date Type Department Care Team (Late st Contact Info) Description 11/09/2024 1:30 PM EST Office Visit Infectious Disease at [address] Isabela Hayward, SALESPERSON HOUSEHOLD APPLIANCES [facility] [place] [address] 11/10/2024 10:00 AM EST Office Visit Vascular Surgery at [place] [phone] Dai Whitman, SALESPERSON HOUSEHOLD APPLIANCES 11/21/2024 2:15 PM EST Office Visit Endocrinology at [place] [phone] Dayanara Grover MD [facility] [place] [address] documented as of this encounter Visit Diagnoses Not on filedocumented in this encounter Care Teams Special Forces Senior Sergeant Relationship Specialty Start Date End Date Patric Al MD PCP - General 12/29/11 02/26/19 documented as of this encounter
--- OUTSIDE RECORDS SUMMARY | 2024-10-31 17:10 | XMS_ITS | Encounter Summary ---
Author Organization [facility] [place] [address] Care Team Providers Care Investor Relations Analyst Name Role Phone Guanako Gusman MD Primary Care Provider [phone] Reason for Visit * Reason Comments Follow Up Surgery Encounter Details Date Type Department Care Team (Late st Contact Info) Description 03/08/2012 10:00 AM EDT Office [place] [address] Inna Tovar MD S/P CABG (coronary artery bypass graft) [...] FOR CABG performed by INNA TOVAR at [facility] MAIN OR ??? Cabg, artery-vein, single 01/04/2012 @CABG, VENOUS & ARTERIAL GRAFT;SINGLE VEIN GRAFT performed by INNA TOVAR at [facility] MAIN OR Outpatient prescriptions marked [...] PM EST Office [place] [phone] Isabela Hayward, AIR TUCKER [facility] [place] [address] 11/10/2024 10:00 AM EST Office Visit [place] [phone] Dai Whitman APRN 11/21/2024 2:15 PM EST Office [place] [phone] Dayanara Grover MD [facility] [place] [address] documented as of this encounter Visit Diagnoses Diagnosis S/P CABG (coronary artery bypass graft)- Primary Postsurgical aortocoronary bypass status documented in this encounter Care Teams Investor Relations Analyst Relationship Specialty Start Date End Date Guanako Gusman MD PCP - General 12/29/11 02/26/19 documented as of this encounter
--- OUTSIDE RECORDS SUMMARY | 2024-10-31 17:10 | XMS_ITS | Encounter Summary ---
Author Organization [facility] [place] [address] Care Team Providers Care Air Pollution Compliance Inspector Name Role Phone Guanako Gusman MD Primary Care Provider [phone] Reason for Visit * Reason Comments Follow Up Surgery Encounter Details Date Type Department Care Team (Late st Contact Info) Description 02/09/2012 11:00 AM EDT Office Visit [place] [address] Inna Tovar MD Chest pain; S/P CABG [...] at [facility] MAIN OR ??? Cabg, artery-vein, single 01/04/2012 @CABG, VENOUS & ARTERIAL GRAFT;SINGLE VEIN GRAFT performed by INNA TOVAR at [facility] MAIN OR Outpatient prescriptions marked [...] PM EST Office [place] [address] Isabela Hayward APRN [facility] [place] [address] 11/10/2024 10:00 AM EST Office [place] [phone] Dai Whitman APRN 11/21/2024 2:15 PM EST Office [place] [phone] Dayanara Grover MD [facility] [place] [address] documented as of this encounter Procedures Procedure [...] (Bezet) 453 ms MUSE SYSTEM Calculated P [place] 41 degrees MUSE SYSTEM Calculated R [place] 25 degrees MUSE SYSTEM Calculated T [place] 74 degrees MUSE SYSTEM INTERPRETATION Sinus tachycardia [...] status documented in this encounter Care Teams Air Pollution Compliance Inspector Relationship Specialty Start Date End Date Guanako Gusman MD PCP - General 12/29/11 02/26/19 documented as of this encounter
--- OUTSIDE RECORDS SUMMARY | 2024-10-31 17:10 | XMS_ITS | Encounter Summary ---
Author Organization [facility] [place] [address] Care Team Providers Care District Wildlife Manager Name Role Phone Guanako Gusman MD Primary Care Provider [phone] Encounter Details Date Type Department Care Team (Late st Contact Info) Description 01/26/2012 Orders [place] [address] Benjamin Lockwood PA Social History Tobacco Use [...] PM EST Office [place] [address] Isabela Hayward, RESHMA [facility] INFECTIOUS [place] [address] 11/10/2024 10:00 AM EST Office [place] [address] Dai Whitman APRN 11/21/2024 2:15 PM EST Office [place] [address] Dayanara Grover MD [facility] DR [place] [address] documented as of this encounter Visit Diagnoses Not on filedocumented in this encounter Care Teams District Wildlife Manager Relationship Specialty Start Date End Date Guanako Gusman MD PCP - General 12/29/11 02/26/19 documented as of this encounter
--- OUTSIDE RECORDS SUMMARY | 2024-10-31 17:10 | XMS_ITS | Encounter Summary ---
Author Organization [facility] Address [facility] [place] [address] Care Team Providers Care Key Carrier Name Role Phone Guanako Gusman MD Primary Care Provider [phone] Encounter Details Date Type Department Care Team (Late st Contact Info) Description 02/09/2012 10:27 AM EDT - 02/09/2012 11:59 PM EDT Hospital Encounter XRay at [address] [place] [address] Chest pain Social History Tobacco Use Types [...] PM EST Office [place] [address] Isabela Hayward APRN [facility] [address] 11/10/2024 10:00 AM EST Office [place] [address] Dai Whitman APRN 11/21/2024 2:15 PM EST Office [place] [address] Dayanara Grover MD [facility] [place] [address] documented as of this encounter Procedures Procedure [...] unspecified documented in this encounter Care Teams Key Carrier Relationship Specialty Start Date End Date Guanako Gusman MD PCP - General 12/29/11 02/26/19 documented as of this encounter
--- OUTSIDE RECORDS SUMMARY | 2024-10-31 17:10 | XMS_ITS | Encounter Summary ---
Author Organization [facility] [place] [address] Care Team Providers Care Welder Production Line Gas Name Role Phone Guanako Gusman MD Primary Care Provider [phone] Reason for Visit * Reason Onset Date Comments Sweats 01/16/2012 Encounter Details Date Type Department Care Team (Late st Contact Info) Description 01/16/2012 Telephone Cardiology at [address] [address] Maninder Brennan MD [place]ate Social History Tobacco [...] HTN, hyperlipidemia, smoking, and narcolepsy calls the [facility] stating that he has been experiencing 'cold [...] PM EST Office [place] [address] sIabela Hayward, INTERNAL COMMUNICATIONS SPECIALIST [facility] DR [place] [address] 11/10/2024 10:00 AM EST Office [place] [phone] Dai Whitman, RESHMA 11/21/2024 2:15 PM EST Office [place] [address] [facility] DR [place] [address] documented as of this encounter Visit Diagnoses Not on filedocumented in this encounter Care Teams Welder Production Line Gas Relationship Specialty Start Date End Date Guanako Gusman MD PCP - General 12/29/11 02/26/19 documented as of this encounter
--- OUTSIDE RECORDS SUMMARY | 2024-10-31 17:10 | XMS_ITS | Encounter Summary ---
Author Organization [facility] [place] [address] Care Team Providers Care Clinical Account Liaison Name Role Phone Guanako Gusman MD Primary Care Provider [phone] Encounter Details Date Type Department Care Team (Late st Contact Info) Description 08/20/2013 Telephone Cardiology at [address] [phone] Luz Horvath MD Social History Tobacco Use [...] Transfer call from Dr. Akanksha Torres at [facility]. 38 yo s/p recent CABG 12/20 [...] 70s, 99% on 2 L. Transfer to [facility] for mgmt of UA/NSTEMI in noncompliant diabetic with recent CABG. Likely cardiac cath tomorrow. documented in this encounter Plan of Treatment Upcoming Encounters Date Type Department Care Team (Late st Contact Info) Description 11/09/2024 1:30 PM EST Office [place] [address] Isabela Hayward, RESHMA [facility] DR [place] [address] 11/10/2024 10:00 AM EST Office [place] [address] Dai Whitman APRN 11/21/2024 2:15 PM EST Office [place] [address] Dayanara Grover MD [facility] [place] [address] documented as of this encounter Visit Diagnoses Not on filedocumented in this encounter Care Teams Clinical Account Liaison Relationship Specialty Start Date End Date Guanako Gusman MD PCP - General 12/29/11 02/26/19 documented as of this encounter
--- OUTSIDE RECORDS SUMMARY | 2024-10-31 17:11 | XMS_ITS | Encounter Summary ---
Author Organization Formerly [facility], [facility] Address [facility] [place] [address] Care Team Providers Care Airdox Fitter Name Role Phone Patric Al MD Primary Care Provider [phone] Reason for Referral * (Routine) - Closed by system - unspecified Specialty Diagnoses / Procedures Referred By William t Referred To Contact Diagnoses Chest pain Sarthak Pollard MD [facility] [place] [address] Referral ID Status Reason Start Date Expiration Date Visits Requested Visits Authorized [id number] Closed by system - unspecified Evaluate and Treat 01/08/2012 07/06/2012 1 1 Encounter Details Date Type Department Care Team (Latest Contact Info) Description 12/29/2011 8:26 PM EST - 01/08/2012 2:58 PM EST Hospital Encounter Inter[place] [address] Andi Rene MD Andrus, Bruce W, MD [facility] [place], [place] [id number] Inna Tovar MD Chest pain Discharge Disposition: [...] Lange APRN - 01/08/2012 12:11 PM EST Geovanan Dixon . 1975 [id number] New Diagnosis of Pre-Diabetes For discharge should [...] Some considerations about using metformin in Prediabetics: Spanish Diabetes Prevention Program (DPP) as well as other minor studies and meta-analyses has convincingly demonstrated the efficacy of metformin in this patient group [pre-diabetics]. In addition, results of the 10 year DPP follow up have recently been published, demonstrating the residential safety and sustainability of metformin treatment benefits [...] - will be starting Cardiac rehab at [facility], encouraged to increase physical activity as advised by cardiologists Weight Loss - A 7% weight loss could significantly improve his BG control Tobacco cessation - There is growing evidence that cigarette smokers are more prone than the general population to develop T2DM. Increase in insulin resistance with tobacco use. Darcie Lange APRN [facility] Endocrinology Diabetes Management [phone] * Patient Instructions* Ricky Graham PA - [...] Anne Tovar and/or the Cardiothoracic Surgery Physician Shoe Lacer Team may be reached at . Activity [...] Dr. Inna Tovar. You may use a [place] Track or treadmill but avoid any pulling [...] friends, go to a movie, go to [employer], etc. Heavy activities: No hunting, skiing, jogging, [...] smoke after surgery. TOBACCO TREATMENT PLAN Geovanna iDxon Jr. has a Fagerstrom Score of 5, [...] would be to continue to go [place]. He has quit this way before and [...] only 10% of those who quit [place] are able to be successful. The calculated [...] is open to a phone call from vt in 1-2 weeks as well. Vibha Martines [...] given to patient. Discharge summary faxed to [facility] and receipt confirmed via phone. Patient [...] outpatient basis Equipment needs: none ADEBAYO MCGARRY, BRAKE PRESS OPERATOR Pager: [phone] Physical Therapy Rehabilitation Department * Michelle Chong [...] services. Patient would like VNA services through [facility] [employer]. PHONE: [phone] FAX: [phone]. Referral made via E-discharge. Please see home care orders that must be included in discharge summary for VN services to start. Patient has glucometer and supplies at bedside. Pt. Denies any further needs from CRC. Pt. Gets scripts through [place] Medicaid with co-pay. He denies any concerns related to co-pay. * Darcie Lange, ANALYTICS MANAGER - 01/07/2012 9:57 AM EST Geovanna Dixon . 1975 [id number] PATRIC AL MD Follow Up Diabetes Consult [...] Some considerations about using metformin in Prediabetics: Spanish Diabetes Prevention Program (DPP) as well as other minor studies and meta-analyses has convincingly demonstrated the efficacy of metformin in this patient group [pre-diabetics]. In addition, results of the 10 year DPP follow up have recently been published, demonstrating the terminal block assembler safety and sustainability of metformin treatment benefits [...] - will be starting Cardiac rehab at [facility], encouraged to increase physical activity as [...] [place] Endocrin[place] Diabetes Management [phone] Pager [phone] This case was discussed with Dr. Christina Brody. 25 min time spent in patient care with 20 counseling, seeing patient, changing orders and discussion with the patient and the primary team as well as nursing. * Inna Tovar MD - 01/07/2012 9:39 AM EST Cardiac Surgery Progress Note: ID: [id number] 36/M POD #[address] Tovar [...] results found for this basename: phart, po2art, btw0lct Assessment/Plan: Pathway. Neuro: ambulating on own per [...] home. (ie take out the trash or peanut picker his child) Objective:Pt was seen today [...] 30 minutes Total timed interventions: 30 minutes NMA TRINIDAD, PT Pager: [phone] Physical Therapy Rehabilitation Department * Vibha Martines [...] CABG performed by INNA TOVAR at [facility] MAIN OR ??? Cabg, artery-vein, single 01/04/2012 @CABG, VENOUS & ARTERIAL GRAFT;SINGLE VEIN GRAFT performed by INNA TOVAR at [facility] MAIN OR Outpatient prescriptions marked [...] in places where it is forbidden ex [facility] No Yes 0 3. Which cigarette would [...] would be to continue to go [place]. He has quit this way before and it lasted several years, so he has a history of being successful with this method. He also pointed out that his father and an uncle quit (for now over 10 years) by going [place]. I told him that it is difficult to recommend a quit method that has a 90% failure rate, but that said, it is his choice and that I would provide him with a toolkit of information so that he will be as knowledgeable as possible about nicotineaddiction and how to stay quit. And we do know that 10% of those who quit [place] are able to be successful. I calculated [...] now has the Quit line number for [place] and has also been encouraged to use this if needed for support. In addition he was in agreement with a referral to the [place] Quitnetworkand I have FAXed a referral to [...] Note Patient Name: Geovanna Dixon Jr. : [id number] MR#: [id number] Admitted: 12/29/2011 Hospital Day 8 days Problem [...] Subjective and 24 hr events: -[facility] - No BM - Pain about a [...] [place] [facility] Geovanna Dixon Jr. was seen today regarding participation in outpatient Phase [address] [facility] . A referral will be sent to this program. The patient was given contact information and should expect to be contacted by the program within 1-2 weeks after discharge from [facility]. * Kareen Mendoza PT - 01/05/2012 3:59 [...] CABG performed by INNA TOVAR at [facility] MAIN OR ??? Cabg, artery-vein, single 01/04/2012 @CABG, VENOUS & ARTERIAL GRAFT;SINGLE VEIN GRAFT performed by INNA TOVAR at [facility] MAIN OR Social History: Patient [...] minutes brief evaluation KAREEN MENDOZA, PT Pager: [phone] Physical Therapy Rehabilitation Department * Camille Angulo [...] home meds (effexor; zoloft; vivactil) CV: wean signh off, start bb and lasix as tolerated [...] A: medical plan still evolving. P: This proposal manager writer or colleague from the Office of [...] FULL CODE Paola Akers PGY 1 Pager [phone] Attending Addendum: I spoke with the patient and his family briefly this am. I agree with the principal findings. The impression and plan incorporate my input. No contraindication to surgery today. Sarthak Pollard MD [facility] pager [phone] * Sarthak Pollard MD - 01/03/2012 11:08 [...] risk of aggravating CAD. Sarthak Pollard MD [facility] pager [phone] * Bal John MD - 01/02/2012 3:10 [...] AM EST CARDIOLOGY INPATIENT PROGRESS NOTE Geovanna Dixno SUMMARY: Geovanna Dixon Jr. is a 36 [...] Cristina Ambriz MD PGY1, Internal Medicine Pager [phone] 01/02/2012 Attending Addendum: I have interviewed and examined the patient. I agree with the principal findings. The impression and plan incorporate my input. As above, doing well. Will keep on heparin until surgery. No angina, HF, bleeding, or evidence of HIT. Sarthak Pollard MD [facility] pager [phone] * Inna Tovar MD - 01/01/2012 3:17 PM EST Please see Dr. Major's note from 12/31/11 for full details. Briefly, Mr. Dixon developed unstable angina and ruled in for ID. Cath shows severe 3 vessel disease. Echo [...] mg BID Paola Akers PGY 1 Pager [phone] Attending Addendum: I have interviewed and examined the patient. I agree with the principal findings. The impression and plan incorporate my input. He is disappointed that his surgery has been postponed until Wednesday butunderstands. He remains cp free. I've reviewed his angiograms and believe he needs to stay on heparin until surgery. All questions answered. Sarthak Pollard MD [facility] pager [phone] * Andi Rene MD - 12/31/2011 5:20 PM EST CARDIOLOGY INPATIENT PROGRESS NOTE Geovanna Dixon JrFlornecio SUMMARY: Geovanna Dixon Jr. is a 36 y.o. male with: NSTEMI, fevers, cath showed severe 3 vessel disease, now being evaluated for CABG Patient Active Problem List Diagnoses Code ??? Chest pain 786.50F ??? HTN (hypertension) 401.9AF ??? Hyperlipidemia 272.4S ??? Depression 311L ??? Narcolepsy 347.00B 24 HOUR EVENTS: - Admitted yesterday for chest pain as a transfer from [facility] - Cardiac cath yesterday showed [...] mg BID Paola Akers PGY 1 Pager [phone] Cardiology Attending Progress Note Addendum: I have [...] rehab at [facility] in [facility]. We will meet him again [...] Call saucedo within reach, family at bedside. 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 documented in this encounter H&P Notes * Herman Loyd RN - 01/05/2012 12:44 PM EST Patient being transferred [facility] , report to Camilla. * Inna [...] alleviate the pain. He eventually presented to [facility] on Wednesday wherehe had elevated troponins [...] Lives on social security in house in [facility] with two children (18 and 4, and one step child) Active pack per day smoker (27pack year history) No etoh No drugs Enjoys riding motorcycles and hunting He is NOT a caodaism FHx: Heart disease on both sides of the family Father's side with multiple uncles with ID's, one at age of 40 Mother's side with uncle at age 50 from ID Diabetes in mother ROS: Positive headache, nausea [...] loss were emphasized as they relate to residential patency of his grafts. He should receive smoking cessation counseling donya. One post op consideration will be vent wean and respiratory status given likely underlying CAMILLA and his known narcolepsy. Pre op orders written, heparin gtt to stop stitch bonding machine tender helper to OR. Pt seen and interviewed with [...] [facility] for evaluation of [...] history (both paternal grandparents passing away from [facility] and paternal aunts/uncles with histories [...] FULL Provider: REMIGIO CERON MD Pager #: [phone] documented in this encounter Procedure Notes * Provider, Scanning - 01/10/2012 1:46 PM ESTAssociated Order(s): SCAN DOC: NURSE REVIEWER * Provider, Scanning - 01/10/2012 1:46 PM [...] 3:45 PM EST Geovanna Dixon Jr. 1975 [id number] Inpatient Endocrinology Glucose Management Consult Date of [...] and to provide a review of his terminal block assembler diabetes plan. Diabetes History: Geovanna Dixon Jr. [...] considerations about using metformin in Prediabetics: ?? Spanish Diabetes Prevention Program (DPP) as well as other minor studies and meta-analyses hasconvincingly demonstrated the efficacy of metformin in this patient group [pre-diabetics]. In addition, results of the 10 year DPP follow up have recently been published, demonstrating the residential safety and sustainability of metformin treatment benefits [...] - will be starting Cardiac rehab at [facility], encouraged to increase physical activity as [...] [place] Endocrin[place] Diabetes Management [phone] Pager [phone] This case was discussed with Dr. Christina [...] alleviate the pain. He eventually presented to [facility] on Wednesday where he had elevated [...] Course: Geovanna Dixon JrFlorencio was admitted to [facility] on 12/29/2011 to the cardiologyservice for [...] Medications: Geovanna Dixon Jr. Home Medication Instructions CRAIG:[id number] Printed on:01/08/12 6766 Medication Information simvastatin (ZOCOR) 20 mg tablet [...] Anne Tovar and/or the Cardiothoracic Surgery Physician Shoe Lacer Team may be reached at . Activity [...] Dr. Inna Tovar. You may use a [place] Track or treadmill but avoid any pulling [...] friends, go to a movie, go to [employer], etc. Heavy activities: No hunting, skiing, jogging, snow shoveling, snowmobiling, lawn mowing, swimming,golf or tennis until after your return appointment with the surgeon. Do not ride motorcycles, [employer]stractors or horses. Avoid the use of a [...] would be to continue to go [place]. He has quit this way before and [...] only 10% of those who quit [place] are able to be successful. The calculated [...] Some considerations about using metformin in Prediabetics: Spanish Diabetes Prevention Program (DPP) as well as other minor studies and meta-analyses has convincingly demonstrated the efficacy of metformin in this patient group [pre-diabetics]. In addition, results of the 10 year DPP follow up have recently been published, demonstrating the terminal block assembler safety and sustainability of metformin treatment benefits [...] - will be starting Cardiac rehab at [facility], encouraged to increase physical activity as advised by cardiologists Weight Loss - A 7% weight loss could significantly improve his BG control Tobacco cessation - There is growing evidence that cigarette smokers are more prone than the general population to develop T2DM. Increase in insulin resistance with tobacco use. Darcie Lange APRN [facility] Endocrinology Diabetes Management [phone] Medications: Take only those medications listed on [...] should resume a low fat, low cholesterol, Spanish Heart Association Diet. Driving: No driving for [...] in outpatient Phase [address] [facility] . A referral will be sent to this program. He was given contact information and shouldexpect to be contacted by the program within 1-2 weeks after discharge from [facility]. Arrangements for VNA/home care: PATIENT'S LOCATION: Geovanna Dixon Jr. [address] [place] [address] There is no home phone number on file. Telephone Information: In discussion with the attending physician, it is certified that this patient is under their care and that they, or a nurse practitioner, clinical nurse specialist or physician's therapeutic recreation assistant who is working directly with them, [...] for services as follows: HOME HEALTH AGENCY: [facility] PHONE: [phone] FAX: [phone] RN orders: Cardiopulmonary assessment, incisional assessment, assess [...] issues please call the Cardiac SurgeryOffice at [phone] FOR MEDICARE ONLY: (please delete this section if not Medicare) In discussion with the attending physician, it is certified that the clinical findings support thatthis patient is homebound (i.e. absences from home require considerable and taxing effort and are for medical reasons or adventist services of infrequently or of short duration [...] nurse practitioner, clinical nurse specialist or physician's therapeutic recreation assistant who is working directly with them, [...] effort and are for medical reasons or adventist services of infrequently or of short duration when for other reasons) Please note that any additional orders needs or changes will need to be obtained from this patient's PCP: PATRIC AL MD [phone] All VNA agencies which cover the area of patient's residence have been reviewed, either verbally feli writing, and patient/family have chosen the indicated home health care agency for home services. Comments: Questions: Responses: Agency name and contact information [facility] Patient location post discharge home What services are requested Start date 01/10/2012 Responsible MD post discharge contact info PCP RN to remove chest tube sutures on or after 01/13/12. Signed: Ricky Graham PA-C [facility] Section of Cardiothoracic Surgery Date: 01/08/12 CC: MD [facility] EMERGENCY DEPT [address] [place] [address] [place] [address] * Op Note - Inna Tovar MD - 01/04/2012 3:55 PM EST [facility] Operative Note Patient Name: Geovanna Dixon Jr. : [id number] MR#: [id number] Case Date: 01/04/2012 Surgeon: Surgeon(s) and Role: [...] enlarged. There was diffuse disease in all lone pine vessels. The OFELIA and vein were of excellent quality. The lungs had early emphysematous changes. Procedure Details: The patient was brought to the operating room and given general anesthesia. A Elton-Haley catheter, radial arterial line, and Mendez catheter [...] fter inspection for adequate hemostasis, two #28 Mongolian chest tubes were placed and brought out [...] Note Patient Name: Geovanna Dixon Jr. 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 No recent out door activities [...] likely. (Leukocytosis may be r/t stress of ID.) Bacteremia as a complication of his cath, [...] PM EST Office [place] [address] Isabela Hayward, [facility] [place] [address] 11/10/2024 10:00 AM EST Office [place] [address] Dai Whitman APRN 11/21/2024 2:15 PM EST Office Visit Endocrinology [place] [address] Dayanara Grover MD [facility] [place] [address] Scheduled Referrals Name Type Priority Associated Diagnoses Orde r Schedule REFERRAL TO CARDIAC REHAB Outpatient Referral Routine Chest pain Ordered: 01/08/2012 documented as of this encounter Procedures Procedure Name Priority Date/Time Associated Diagnosis Comments CARDIAC CATHETERIZATION Routine 01/11/20 12 11:04 AM EST LAB SCAN 01/10/2012 1:46 PM EST NURSE REVIEWER SCAN 01/10/2012 1:46 PM EST CARDIAC CATH [...] 01/05/20 12 2:00 AM EST CARD[facility]AC ENZYMES ([facility] [...] 01/02/2012 11:21 PM EST TYPE AND SCREEN ([facility]CGP/BABITA) Routine 01/02/2012 11:00 PM EST APTT STAT [...] (Bezet) 453 ms MUSE SYSTEM Calculated P [place] 41 degrees MUSE SYSTEM Calculated R [place] 25 degrees MUSE SYSTEM Calculated T [place] 74 degrees MUSE SYSTEM INTERPRETATION Sinus tachycardia [...] EXT O RDR/RSLT * SCAN DOC: NURSE REVIEWER (01/10/2012 1:46 PM EST) Anatomical Region Laterality Modality Other Narrative 01/11/2012 8:32 AM EST Procedure Note Provider, Scanning - 01/10/2012 1:46 PM EST Scanning Provider MEDIA MGR SCAN EXT O RDR/RSLT * POCT GLUCOSE LAB USE ONLY (01/08/2012 12:00 PM EST) Glucose, POC 106 60 - 199 mg/dL [facility] Comment: Supplemental ranges: <110 mg/dL before meals <200 mg/dL all other times of the day Blood specimen (specimen) 01/08/2012 12:00 PM EST 01/08/2012 12:00 PM EST Andi Rene MD POINT OF CARE TEST O GILDA Performing Organization Address [facility] de Phone Number [facility] * Potassium (01/08/2012 10:05 AM EST) Potassium 4.2 3.5 - 5.0 mmol/L [facility] Comment: Please note: ??Patients with WBC >100,000 [...] Tovar MD CHEMISTRY ORDERABLES Performing Organization Address [facility] Co de Phone Number [facility] * POCT GLUCOSE LAB USE ONLY (01/08/2012 7:21 AM EST) Glucose, POC 144 60 - 199 mg/dL [facility] Comment: Supplemental ranges: <110 mg/dL before meals <200 mg/dL all other times of the day Blood specimen (specimen) 01/08/2012 7:21 AM EST 01/08/2012 7:21 AM EST Andi Rene MD POINT OF CARE TEST O RDERABLES Performing Organization Address [facility] Phone Number [facility] * POCT GLUCOSE LAB USE ONLY (01/07/2012 8:43 PM EST) Glucose, POC 179 60 - 199 mg/dL [facility] Comment: Supplemental ranges: <110 mg/dL before meals <200 mg/dL all other times of the day Blood specimen (specimen) 01/07/2012 8:43 PM EST 01/07/2012 8:43 PM EST Andi Rene MD POINT OF CARE TEST O RDERABLES Performing Organization Address [facility] Phone Number [facility] * POCT GLUCOSE LAB USE ONLY (01/07/2012 4:47 PM EST) Glucose, POC 128 60 - 199 mg/dL [facility] Comment: Supplemental ranges: <110 mg/dL before meals <200 mg/dL all other times of the day Blood specimen (specimen) 01/07/2012 4:47 PM EST 01/07/2012 4:47 PM EST Andi Rene MD POINT OF CARE TEST O RDERABLES Performing Organization Address [facility] Phone Number [facility] * Potassium (01/07/2012 11:42 AM EST) Potassium 3.6 3.5 - 5.0 mmol/L [facility] Comment: Please note: ??Patients with WBC >100,000 [...] Tovar MD CHEMISTRY ORDERABLES Performing Organization Address [facility] Phone Number [facility] * POCT GLUCOSE LAB USE ONLY (01/07/2012 11:41 AM EST) Glucose, POC 114 60 - 199 mg/dL [facility] Comment: Supplemental ranges: <110 mg/dL before meals <200 mg/dL all other times of the day Blood specimen (specimen) 01/07/2012 11:41 AM EST 01/07/2012 11:41 AM EST Andi Rene MD POINT OF CARE TEST O RDERABLES [facility] * XR chest routine PA [...] USE ONLY (01/07/2012 8:00 AM EST) Pathologist [facility] Glucose, POC 116 60 - 199 mg/dL [facility] Comment: Supplemental ranges: <110 mg/dL before meals <200 mg/dL all other times of the day Blood specimen (specimen) 01/07/2012 8:00 AM EST 01/07/2012 8:00 AM EST Andi Rene MD POINT OF CARE TEST O RDERABLES [facility] * (ABNORMAL) DIFFERENTIAL, AUTOMATED (01/07/2012 4:11 AM EST) Pathologist [facility] Neutrophil % 78.1(H) 34.0 - 71.0 % [...] HEMATOLOGY ORDERABLE S Performing Organization Address [facility] Phone Number [facility] * Microalbumin, urine, random (01/06/2012 9:03 PM EST) Creatinine, Urine 136 mg/dL CE RNER MILLENNIUM Albumin, Urine 14.4 mg/L CERNE R MILLENNIUM Albumin / Creatinin Ratio, Urine 11 mcg/mg Cr [facility] Comment: Reference Range* Random collection (mcg/mg creatinine) Normal ?<30 Microalbuminuria ?? 30 - 300 Clinical Albuminuria ?? >300 *Spanish Diabetes Association. Diabetic Nephropathy. Diabetes Care 1997;(Suppl 1):S24-S27 Exercise within 24 hour, infection, fever, CHF, marked hyperglycemia, and marked hypertension may elevate urinary albumin excretion over baseline values. Urine specimen (specimen) 01/06/2012 9:03 PM EST 01/06/2012 10:28 PM EST Narrative Resulting Agency Comment Spec In Lab Inna Tovar MD URINE ORDERABLES Performing Organization Address [facility] de Phone Number [facility] * POCT GLUCOSE LAB USE ONLY (01/06/2012 7:46 PM EST) Glucose, POC 127 60 - 199 mg/dL [facility]ER MILLENNIUM Comment: Supplemental ranges: <110 mg/dL before meals <200 mg/dL all other times of the day Blood specimen (specimen) 01/06/2012 7:46 PM EST 01/06/2012 7:46 PM EST Andi Rene MD POINT OF CARE TEST O GILDA Performing Organization Address [facility] de Phone Number [facility] Insight Direct (ServiceCEO)[facility] * POCT GLUCOSE LAB USE ONLY (01/06/2012 4:24 PM EST) Glucose, POC 131 60 - 199 mg/dL [facility] Comment: Supplemental ranges: <110 mg/dL before meals <200 mg/dL all other times of the day Blood specimen (specimen) 01/06/2012 4:24 PM EST 01/06/2012 4:24 PM EST Andi Rene MD POINT OF CARE TEST O GILDA Performing Organization Address [facility] de Phone Number [facility] [employer] (ServiceCEO)[facility] * POCT GLUCOSE LAB USE ONLY (01/06/2012 12:06 PM EST) Glucose, POC 160 60 - 199 mg/dL [facility] [employer] (ServiceCEO)[facility] Comment: Supplemental ranges: <110 mg/dL before meals <200 mg/dL all other times of the day Blood specimen (specimen) 01/06/2012 12:06 PM EST 01/06/2012 12:06 PM EST Andi Rene MD POINT OF CARE TEST O GILDA Performing Organization Address [facility] de Phone Number [facility] [employer] (ServiceCEO)[facility] * Potassium (01/06/2012 9:59 AM EST) Potassium 4.0 3.5 - 5.0 mmol/L [facility] Comment: Please note: ??Patients with WBC >100,000 [...] Tovar MD CHEMISTRY ORDERABLES Performing Organization Address [facility] de Phone Number [facility] * POCT GLUCOSE LAB USE ONLY (01/06/2012 6:53 AM EST) Glucose, POC 168 60 - 199 mg/dL [facility] Comment: Supplemental ranges: <110 mg/dL before meals <200 mg/dL all other times of the day Blood specimen (specimen) 01/06/2012 6:53 AM EST 01/06/2012 6:53 AM EST Andi Rene MD POINT OF CARE TEST O RDTYESHA Performing Organization Address [facility] de Phone Number [facility] * POCT GLUCOSE LAB USE ONLY (01/06/2012 5:03 AM EST) Glucose, POC 147 60 - 199 mg/dL [facility] Comment: Supplemental ranges: <110 mg/dL before meals <200 mg/dL all other times of the day Blood specimen (specimen) 01/06/2012 5:03 AM EST 01/06/2012 5:03 AM EST Andi Rene MD POINT OF CARE TEST O GILDA Performing Organization Address [facility] de Phone Number [facility] * POCT GLUCOSE LAB USE ONLY (01/06/2012 3:16 AM EST) Glucose, POC 126 60 - 199 mg/dL [facility] Comment: Supplemental ranges: <110 mg/dL before meals <200 mg/dL all other times of the day Blood specimen (specimen) 01/06/2012 3:16 AM EST 01/06/2012 3:16 AM EST Andi Rene MD POINT OF CARE TEST O RDERABLES Performing Organization Address [facility]/ZIP Co de Phone Number [facility] * POCT GLUCOSE LAB USE ONLY (01/06/2012 1:12 AM EST) Glucose, POC 135 60 - 199 mg/dL [facility] Comment: Supplemental ranges: <110 mg/dL before meals <200 mg/dL all other times of the day Blood specimen (specimen) 01/06/2012 1:12 AM EST 01/06/2012 1:12 AM EST Andi Rene MD POINT OF CARE TEST O RDERAHERNANDEZ Performing Organization Address [facility] Co de Phone Number [facility] * POCT GLUCOSE LAB USE ONLY (01/05/2012 11:52 PM EST) Glucose, POC 133 60 - 199 mg/dL [facility] Comment: Supplemental ranges: <110 mg/dL before meals <200 mg/dL all other times of the day Blood specimen (specimen) 01/05/2012 11:52 PM EST 01/05/2012 11:52 PM EST Andi Rene MD POINT OF CARE TEST O GILDA Performing Organization Address [facility] Co de Phone Number [facility] * POCT GLUCOSE LAB USE ONLY (01/05/2012 10:54 PM EST) Glucose, POC 130 60 - 199 mg/dL [facility] Comment: Supplemental ranges: <110 mg/dL before meals <200 mg/dL all other times of the day Blood specimen (specimen) 01/05/2012 10:54 PM EST 01/05/2012 10:54 PM EST Andi Rene MD POINT OF CARE TEST O RDERAHERNANDEZ Performing Organization Address [facility] Co de Phone Number [facility] * POCT GLUCOSE LAB USE ONLY (01/05/2012 9:51 PM EST) Glucose, POC 132 60 - 199 mg/dL [facility] Comment: Supplemental ranges: <110 mg/dL before meals <200 mg/dL all other times of the day Blood specimen (specimen) 01/05/2012 9:51 PM EST 01/05/2012 9:51 PM EST Andi Rene MD POINT OF CARE TEST O RDERAHERNANDEZ Performing Organization Address [facility] de Phone Number [facility] [employer] (ServiceCEO)ENNIUM * POCT GLUCOSE LAB USE ONLY (01/05/2012 8:50 PM EST) Glucose, POC 126 60 - 199 mg/dL [facility] MILLENNIUM Comment: Supplemental ranges: <110 mg/dL before meals <200 mg/dL all other times of the day Blood specimen (specimen) 01/05/2012 8:50 PM EST 01/05/2012 8:50 PM EST Andi Rene MD POINT OF CARE TEST O DIMITRIERAHERNANDEZ Performing Organization Address [facility] de Phone Number [facility] [employer] (ServiceCEO)ENNIUM * POCT GLUCOSE LAB USE ONLY (01/05/2012 8:07 PM EST) Glucose, POC 126 60 - 199 mg/dL [facility] MILLENNIUM Comment: Supplemental ranges: <110 mg/dL before meals <200 mg/dL all other times of the day Blood specimen (specimen) 01/05/2012 8:07 PM EST 01/05/2012 8:07 PM EST Andi Rene MD POINT OF CARE TEST O RDERAHERNANDEZ Performing Organization Address [facility] Co de Phone Number [facility] * POCT GLUCOSE LAB USE ONLY (01/05/2012 6:57 PM EST) Glucose, POC 137 60 - 199 mg/dL [facility] MILLENNIUM Comment: Supplemental ranges: <110 mg/dL before meals <200 mg/dL all other times of the day Blood specimen (specimen) 01/05/2012 6:57 PM EST 01/05/2012 6:57 PM EST Andi Rene MD POINT OF CARE TEST O RDERAHERNANDEZ Performing Organization Address [facility] Co de Phone Number [facility] [employer] (ServiceCEO)[facility] * POCT GLUCOSE LAB USE ONLY (01/05/2012 4:59 PM EST) Glucose, POC 147 60 - 199 mg/dL [facility] Comment: Supplemental ranges: <110 mg/dL before meals <200 mg/dL all other times of the day Blood specimen (specimen) 01/05/2012 4:59 PM EST 01/05/2012 4:59 PM EST Andi Rene MD POINT OF CARE TEST O GILDA Performing Organization Address [facility] Phone Number [facility] [employer] (ServiceCEO)[facility] * POCT GLUCOSE LAB USE ONLY (01/05/2012 1:05 PM EST) Glucose, POC 154 60 - 199 mg/dL [facility] Comment: Supplemental ranges: <110 mg/dL before meals <200 mg/dL all other times of the day Blood specimen (specimen) 01/05/2012 1:05 PM EST 01/05/2012 1:05 PM EST Andi Rene MD POINT OF CARE TEST O RDTYESHA Performing Organization Address [facility] de Phone Number [facility] [employer] (ServiceCEO)[facility] * POCT GLUCOSE LAB USE ONLY (01/05/2012 12:42 PM EST) Glucose, POC 148 60 - 199 mg/dL [facility] Comment: Supplemental ranges: <110 mg/dL before meals <200 mg/dL all other times of the day Blood specimen (specimen) 01/05/2012 12:42 PM EST 01/05/2012 12:42 PM EST Andi Rene MD POINT OF CARE TEST O RDERAHERNANDEZ Performing Organization Address [facility] Co de Phone Number [facility] [employer] (ServiceCEO[facility] * POCT GLUCOSE LAB USE ONLY (01/05/2012 9:54 AM EST) Glucose, POC 145 60 - 199 mg/dL [facility] Comment: Supplemental ranges: <110 mg/dL before meals <200 mg/dL all other times of the day Blood specimen (specimen) 01/05/2012 9:54 AM EST 01/05/2012 9:54 AM EST Andi Rene MD POINT OF CARE TEST O GILDA Performing Organization Address [facility] de Phone Number [facility] * POCT GLUCOSE LAB USE ONLY (01/05/2012 8:00 AM EST) Glucose, POC 168 60 - 199 mg/dL [facility] Comment: Supplemental ranges: <110 mg/dL before meals <200 mg/dL all other times of the day Blood specimen (specimen) 01/05/2012 8:00 AM EST 01/05/2012 8:00 AM EST Andi Rene MD POINT OF CARE TEST O GILDA Performing Organization Address [facility] de Phone Number [facility] * POCT GLUCOSE LAB USE ONLY (01/05/2012 5:58 AM EST) Glucose, POC 164 60 - 199 mg/dL [facility] Comment: Supplemental ranges: <110 mg/dL before meals <200 mg/dL all other times of the day Blood specimen (specimen) 01/05/2012 5:58 AM EST 01/05/2012 5:58 AM EST Andi Rene MD POINT OF CARE TEST O GILDA Performing Organization Address [facility] de Phone Number [facility] * POCT GLUCOSE LAB USE ONLY (01/05/2012 4:12 AM EST) Glucose, POC 148 60 - 199 mg/dL [facility] Comment: Supplemental ranges: <110 mg/dL before meals <200 mg/dL all other times of the day Blood specimen (specimen) 01/05/2012 4:12 AM EST 01/05/2012 4:12 AM EST Andi Rene MD POINT OF CARE TEST O RDERABLES Performing Organization Address City/[facility]/ZIP Co de Phone Number CERBRIAN [...] TEST O RDERABLES Performing Organization Address [facility] Co de Phone Number CERNER [...] damage. Diagnosis of acute, evolving or recent ID requires a typical rise and gradual fall [...] consensus document of the Joint Society of Cardiology/[place] College of Cardiology Committee for the redefinition of myocardial infarction. Journal of the [place] College of Cardiology 2000; 36: 959-969] Creatine Kinase 436(H) 0 - 200 unit/L ARIAN CAENNIUM Blood specimen (specimen) 01/05/2012 2:00 AM EST 01/05/2012 2:11 AM EST Narrative Resulting Agency Comment Spec In Lab Sarthak Pollard MD CHEMISTRY ORDERABLES Performing Organization Address [facility] Phone Number [facility] * Potassium (01/05/2012 2:00 AM EST) [facility] Potassium 4.4 3.5 - 5.0 mmol/L [facility] Comment: Please note: ??Patients with WBC >100,000 [...] Pollard MD CHEMISTRY ORDERABLES Performing Organization Address [facility] Phone Number [facility] * (ABNORMAL) Glucose, fasting (01/05/2012 2:00 AM EST) [facility] Glucose Fasting 148(H) 65 - 99 mg/dL [facility] Comment: ?Fasting* Glucose Interpretive Criteria Normal ?65-99 [...] of Diabetes Mellitus, Position Statement from the [place] Diabetes Association. ??Diabetes Care, Volume 33, Supplement 1, Nov 2009 Blood specimen (specimen) 01/05/2012 2:00 AM EST 01/05/2012 2:11 AM EST Narrative Resulting Agency Comment Spec In Lab Sarthak Pollard MD CHEMISTRY ORDERABLES Performing Organization Address [facility] Phone Number [facility] * Creatinine, serum (01/05/2012 2:00 AM EST) Creatinine 0.86 0.80 - 1.50 mg/dL [facility] Est Glomerular Filtration Rate >60 >=60 [...] Nitrogen 10 10 - 20 mg/dL [facility] Blood specimen (specimen) 01/05/2012 2:00 AM EST 01/05/2012 2:11 AM EST Narrative Resulting Agency Comment Spec In Lab Sarthak Pollard MD CHEMISTRY ORDERABLES Performing Organization Address [facility]/ZIP Co de Phone Number ARIAN [...] ORDERABLE S Performing Organization Address City/[facility]/ZIP Co de Phone Number ARIAN [...] TEST O RDERABLES Performing Organization Address [facility] Phone Number [facility] * POCT GLUCOSE LAB USE ONLY (01/04/2012 9:00 PM EST) Glucose, POC 143 60 - 199 mg/dL [facility] Comment: Supplemental ranges: <110 mg/dL before meals <200 mg/dL all other times of the day Blood specimen (specimen) 01/04/2012 9:00 PM EST 01/04/2012 9:00 PM EST Andi Rene MD POINT OF CARE TEST O RDERABLES Performing Organization Address [facility] Phone Number [facility] * GLUCOSE, RANDOM (01/04/2012 9:00 PM EST) Glucose 128 60 - 199 mg/dL [facility] Comment:Diabetes: >=200 mg/d L plus symptoms Blood specimen (specimen) 01/04/2012 9:00 PM EST 01/04/2012 9:08 PM EST Narrative Resulting Agency Comment Spec In Lab Sarthak Pollard MD CHEMISTRY ORDERABLES Performing Organization Address [facility] Phone Number [facility] * (ABNORMAL) Hemoglobin (01/04/2012 9:00 PM EST) Hemoglobin 13.6(L) 13.7 - 17.5 gm/dL [facility] Blood specimen (specimen) 01/04/2012 9:00 PM EST 01/04/2012 9:08 PM EST Narrative Resulting Agency Comment Spec In Lab Sarthak Pollard MD HEMATOLOGY ORDERABLE S Performing Organization Address [facility] Phone Number [facility] * Potassium (01/04/2012 9:00 PM EST) Potassium [...] GAS 2 ARTERIAL (01/04/2012 4:30 PM EST) [facility] pH, Arterial 7.35(L) CERNER MILLENNIUM PCO2, [...] (Bezet) 455 ms MUSE SYSTEM Calculated P [place] 48 degrees MUSE SYSTEM Calculated R [place] 23 degrees MUSE SYSTEM Calculated T [place] 71 degrees MUSE SYSTEM INTERPRETATION Normal sinus rhythm Normal ECG When compared with ECG of 30-DEC-2011 17:24, Vent. rate has decreased BY ??35 BPM Minimal criteria for Inferior infarct are no longer Present Nonspecific T wave abnormality, improved in Anterolateral leads Confirmed by fellow MD Steve, Luca ([id number]) on 01/05/2012 10:22:57 AM Confirmed by MD [...] mmHg [facility]ERNER MILLENNIUM Comment: Noted by instrument engineer. MTF PO2, Arterial 145(H) mmHg CERNER MILLENNIUM [...] TEST O RDERABLES Performing Organization Address [facility] de Phone Number [facility] * THROMBIN TIME (01/04/2012 3:28 PM EST) Thrombin Time 17 15 - 20 sec [facility] Blood specimen (specimen) 01/04/2012 3:28 PM EST 01/04/2012 3:28 PM EST Narrative Resulting Agency Comment Spec In Lab Sarthak Pollard MD HEMATOLOGY ORDERABLE S Performing Organization Address [facility] de Phone Number [facility] * FIBRINOGEN (01/04/2012 3:28 PM EST) Fibrinogen 364 200 - 470 mg/dL [facility] Comment:Called by: LEILANI, Read back by: AKANKSHA SAMPSON, Date/Time:01/04/12 15:45. Blood specimen (specimen) 01/04/2012 3:28 PM EST 01/04/2012 3:28 PM EST Narrative Resulting Agency Comment Spec In Lab Sarthak Pollard MD HEMATOLOGY ORDERABLE S Performing Organization Address [facility] de Phone Number [facility] * APTT (01/04/2012 3:28 PM EST) Partial Thromboplastin Time 30 25 - 35 sec [facility] MILLENNIUM Comment: Recommended therapeutic PTT range for full dose unfractionated heparin is 80-114 seconds. Blood specimen (specimen) 01/04/2012 3:28 PM EST 01/04/2012 3:28 PM EST Narrative Resulting Agency Comment Spec In Lab Sarthak Pollard MD HEMATOLOGY ORDERABLE S Performing Organization Address [facility] de Phone Number ARIAN CERDAIUM * (ABNORMAL) PROTHROMBIN TIME (01/04/2012 3:28 PM EST) Prothrombin Time 17.8(H) 11.9 - 14.7 sec CERNER MILLENNIUM Comment: [facility] Transfusion Committee Guidelines: INR less [...] HEMATOLOGY ORDERABLE S Performing Organization Address [facility] Phone Number ARIAN NELSON * (ABNORMAL) [...] mmHg CERNER MILLENNIUM Comment: Noted by instrument engineer. MTF PO2, Arterial 296(H) mmHg CERNER MILLENNIUM [...] ORDERABLE S Performing Organization Address City/[facility]/ZIP Co de Phone Number CERNER [...] 0.0 - 0.2 x10(3)/mc L CERNER MILLENNIUM [place] Absolute Manual 0.3(H) 0.0 - 0.0 x10(3)/mc [...] of Diabetes Mellitus, Position Statement from the [place] Diabetes Association. ??Diabetes Care, Volume 33, Supplement [...] HEMATOLOGY ORDERABLE S Performing Organization Address [facility] Co de Phone Number [facility] * (ABNORMAL) APTT (01/04/2012 4:40 AM EST) Partial Thromboplastin Time 103(H) 25 - 35 sec [facility] Comment: Recommended therapeutic PTT range for full dose unfractionated heparin is 80-114 seconds. Blood specimen (specimen) 01/04/2012 4:40 AM EST 01/04/2012 4:52 AM EST Narrative Resulting Agency Comment Spec In Lab Sarthak Pollard MD HEMATOLOGY ORDERABLE S Performing Organization Address [facility] Co de Phone Number [facility] * (ABNORMAL) APTT (01/03/2012 7:38 PM EST) [...] ORDERABLE S Performing Organization Address City/[facility]/ZIP Co de Phone Number CERNER [...] ORDERABLE S Performing Organization Address City/[facility]/ZIP Co de Phone Number ARIAN CERDAIUM * ANTIBODY SCREEN (01/03/2012 6:15 AM EST) Ab Screen Interp Negative ARIAN CERDAIUM Expires at [id number] on: [id number] [facility] Blood specimen (specimen) 01/03/2012 6:15 AM EST 01/03/2012 6:35 AM EST Narrative Resulting Agency Comment Spec In Lab Sarthak Pollard MD BLOOD BANK LAB ORDER RANDELL Performing Organization Address [facility] Co de Phone Number ARIAN CERDAIUM * ABO/RH TYPING (01/03/2012 6:15 AM EST) Pathologist [facility] Type A Pos [facility] Blood specimen (specimen) 01/03/2012 6:15 AM EST 01/03/2012 6:35 AM EST Narrative Resulting Agency Comment Spec In Lab Sarthak Pollard MD BLOOD BANK LAB ORDER RANDELL Performing Organization Address [facility] Co de Phone Number ARIAN CERDAIUM * (ABNORMAL) APTT (01/03/2012 6:15 AM EST) Partial Thromboplastin Time 96(H) 25 - 35 sec [facility] Comment: Recommended therapeutic PTT [...] of Diabetes Mellitus, Position Statement from the [place] Diabetes Association. ??Diabetes Care, Volume 33, Supplement [...] Lab Andi Rene MD CHEMISTRY ORDERABLES [facility] ROBYENNIUM * (ABNORMAL) CBC (with Diff) [...] HEMATOLOGY ORDERABLE S Performing Organization Address [facility] Co de Phone Number [facility] * (ABNORMAL) APTT (01/02/2012 11:21 PM EST) Partial Thromboplastin Time 69(H) 25 - 35 sec [facility] Comment: Recommended therapeutic PTT range for full dose unfractionated heparin is 80-114 seconds. Blood specimen (specimen) 01/02/2012 11:21 PM EST 01/02/2012 11:24 PM EST Narrative Resulting Agency Comment Spec In Lab Sarthak Pollard MD HEMATOLOGY ORDERABLE S Performing Organization Address [facility] Phone Number [facility] * (ABNORMAL) APTT (01/02/2012 5:32 PM EST) Partial Thromboplastin Time 53(H) 25 - 35 sec [facility] Comment: Recommended therapeutic PTT range for full dose unfractionated heparin is 80-114 seconds. Blood specimen (specimen) 01/02/2012 5:32 PM EST 01/02/2012 5:38 PM EST Narrative Resulting Agency Comment Spec In Lab Sarthak Pollard MD HEMATOLOGY ORDERABLE S Performing Organization Address [facility] Co de Phone Number [facility] * (ABNORMAL) APTT (01/02/2012 11:56 AM [...] EST Remigio Ceron MD HEMATOLOGY ORDERABLE S [facility] * (ABNORMAL) APTT (01/02/2012 6:02 AM EST) Partial Thromboplastin Time 42(H) 25 - 35 sec [facility] Comment: Recommended therapeutic PTT range for full dose unfractionated heparin is 80-114 seconds. Blood specimen (specimen) 01/02/2012 6:02 AM EST 01/02/2012 6:29 AM EST Narrative Resulting Agency Comment Spec In Lab Sarthak Pollard MD HEMATOLOGY ORDERABLE S Performing Organization Address City/[facility] Co de Phone Number [facility] ROBYENNIUM * (ABNORMAL) BMP w/fasting Glucose (01/02/2012 6:02 AM EST) Glucose Fasting 113(H) 65 - 99 mg/dL [facility] Comment: ?Fasting* Glucose Interpretive Criteria [...] of Diabetes Mellitus, Position Statement from the [place] Diabetes Association. ??Diabetes Care, Volume 33, Supplement [...] HEMATOLOGY ORDERABLE S Performing Organization Address [facility] de Phone Number ARIAN CERDAIUM * (ABNORMAL) [...] Cell 4.32(L) 4.63 - 6.08 x10(6)/mc L [facility] MILLENNIUM Hemoglobin 13.1(L) 13.7 - 17.5 gm/dL [facility] MILLENNIUM Hematocrit 38.1(L) 40.0 - 51.0 % [facility] MILLENNIUM Mean Cell Volume 88.2 79.0 - 92.0 fL [facility] MILLENNIUM Mean Cell Hemoglobin 30.3 25.6 - 32.2 pg [facility] Mean Cell Hemoglobin Concentration 34.4 32.0 - 36.5 gm/dL [facility] MILLENNIUM Platelet 262 145 - 370 x10(3)/mc L [facility] MILLENNIUM RDW Standard Deviation 41.6 35.0 - 46.0 fL [facility] MILLENNIUM RDW coefficient of variation 12.9 10.9 - 14.4 % [facility] MILLENNIUM Mean Platelet Volume 10.1 9.0 - 12.0 fL [facility] Blood specimen (specimen) 01/01/2012 6:37 PM EST 01/01/2012 6:43 PM EST Narrative Resulting Agency Comment Spec In Lab Sarthak Pollard MD HEMATOLOGY ORDERABLE S Performing Organization Address [facility] Phone Number [facility] * APTT (01/01/2012 6:37 PM EST) Partial Thromboplastin Time 32 25 - 35 sec [facility] Comment: Recommended therapeutic PTT range for full dose unfractionated heparin is 80-114 seconds. Blood specimen (specimen) 01/01/2012 6:37 PM EST 01/01/2012 6:43 PM EST Narrative Resulting Agency Comment Spec In Lab Sarthak Pollard MD HEMATOLOGY ORDERABLE S Performing Organization Address [facility] de Phone Number [facility] * POCT GLUCOSE LAB USE ONLY (01/01/2012 12:02 PM EST) Pathologist [facility] Glucose, POC 99 60 - 199 mg/dL [facility] Comment: Supplemental ranges: <110 mg/dL before meals <200 mg/dL all other times of the day Blood specimen (specimen) 01/01/2012 12:02 PM EST 01/01/2012 12:02 PM EST Andi Rene MD POINT OF CARE TEST O RDERABLES Performing Organization Address [facility] Co de Phone Number [facility] * (ABNORMAL) APTT (01/01/2012 11:59 AM EST) Partial Thromboplastin Time 108(H) 25 - 35 sec [facility] Comment: Recommended therapeutic PTT range for full dose unfractionated heparin is 80-114 seconds. Blood specimen (specimen) 01/01/2012 11:59 AM EST 01/01/2012 12:06 PM EST Narrative Resulting Agency Comment Spec In Lab Andi Rene MD HEMATOLOGY ORDERABLE S Performing Organization Address [facility] Co de Phone Number [facility] * XR chest routine PA & lateral [...] of Diabetes Mellitus, Position Statement from the [place] Diabetes Association. ??Diabetes Care, Volume 33, Supplement [...] In Lab Andi Rene MD CHEMISTRY ORDERABLES [facility] * (ABNORMAL) CBC (with Diff) (01/01/2012 [...] Hemoglobin Concentration 34.4 32.0 - 36.5 gm/dL [facility] Platelet 219 145 - 370 x10(3)/mc L [facility] RDW Standard Deviation 42.4 35.0 - 46.0 fL [facility] RDW coefficient of variation 13.1 10.9 - 14.4 % [facility] Mean Platelet Volume 10.1 9.0 - 12.0 fL [facility] Blood specimen (specimen) 01/01/2012 5:19 AM EST 01/01/2012 5:36 AM EST Narrative Resulting Agency Comment Spec In Lab Remigio Ceron MD HEMATOLOGY ORDERABLE S Performing Organization Address [facility] Co de Phone Number [facility] * (ABNORMAL) APTT (12/31/2011 11:01 PM EST) Partial Thromboplastin Time 72(H) 25 - 35 sec [facility] Comment: Recommended therapeutic PTT range for full dose unfractionated heparin is 80-114 seconds. Blood specimen (specimen) 12/31/2011 11:01 PM EST 12/31/2011 11:18 PM EST Narrative Resulting Agency Comment Spec In Lab Andi Rene MD HEMATOLOGY ORDERABLE S Performing Organization Address [facility] de Phone Number [facility] * Upper Respiratory Culture Throat (12/31/2011 9:55 PM EST) Upper Respiratory Culture ? Patient Name: ZACK REYNA., GEOVANNA P ? Ordered By: ANDI RENE ? MR#: [id number] ?LOC: ??[facility] ? /Sex: ??1975 (36 years), ? Male ? PROCEDURE: Upper Respiratory Culture ?SOURCE: Throat ? COLLECTED: 12/31/2011 21:55 ? STARTED: 12/31/2011 22:16 ? FINAL REPORT ? Final Report ? Verified:2011 08:12 ? Beta Hemolytic Streptococci, Group A isolated ? PRELIMINARY REPORT ? Preliminary Report ? Verified:2011 09:46 ? Beta Hemolytic Streptococci, Group A isolated ? [facility] Specimen from throat (specimen) 12/31/2011 9:55 PM EST 12/31/2011 10:16 PM EST Narrative Resulting Agency Comment Spec In Lab Andi Rene MD MICROBIOLOGY - GENER AL ORDERABLES Performing Organization Address [facility] de Phone Number [facility] * (ABNORMAL) APTT (12/31/2011 4:34 PM EST) Partial Thromboplastin Time 66(H) 25 - 35 sec [facility] Comment: Recommended therapeutic PTT range for full dose unfractionated heparin is 80-114 seconds. Blood specimen (specimen) 12/31/2011 4:34 PM EST 12/31/2011 4:39 PM EST Narrative Resulting Agency Comment Spec In Lab Andi Rene MD HEMATOLOGY ORDERABLE S Performing Organization Address [facility] de Phone Number [facility] * Duplex Study for DVT, Bilat legs (12/31/2011 11:07 AM EST) VB Text Report Department: Vascular Surgery Lab Patient: [id number] (ZACKGEOVANNA Bauer) CPT Code: 27518 ICD-9: 780.6 Referring Physician: ANDI RENE Indication: [...] Rene MD VASCULAR ORDERABLES Performing Organization Address City/State/[facility] Co de Phone Number [email or web address] * SMEAR REVIEW REPORT (12/31/2011 10:39 AM EST) Smear Review Report ? [facility] ? Provider: ?? ANDI RENE ?Pt. Name: ?? GEOVANNA DIXON JR ? Acc #: ?[id number] ? Pt. ? Col Date: ?? 12/31/2011 [...] Hemoglobin Concentration 33.9 32.0 - 36.5 gm/dL [facility] Platelet 236 145 - 370 x10(3)/mc L [facility] RDW Standard Deviation 42.7 35.0 - 46.0 fL [facility] RDW coefficient of variation 13.1 10.9 - 14.4 % [facility] Mean Platelet Volume 10.4 9.0 - 12.0 fL [facility] Blood specimen (specimen) 12/31/2011 9:44 AM EST 12/31/2011 10:12 AM EST Narrative Resulting Agency Comment Spec In Lab Andi Rene MD HEMATOLOGY ORDERABLE S [facility] * Lactate Dehydrogenase (12/31/2011 9:44 AM EST) Lactate Dehydrogenase 123 110 - 220 unit/L [facility] Blood specimen (specimen) 12/31/2011 9:44 AM EST 12/31/2011 10:12 AM EST Narrative Resulting Agency Comment Spec In Lab Andi Rene MD CHEMISTRY ORDERABLES [facility] * Peripheral Smear Review (12/31/2011 9:44 AM EST) Peripheral Smear Review See Comment [facility] Comment: When completed by the Pathologist, report [id number] will display under Hematology Reports. Blood specimen [...] Absolute 0.08(H) 0.00 - 0.05 x10(3)/mc L [facility] Blood specimen (specimen) 12/31/2011 3:38 AM EST 12/31/2011 3:50 AM EST Remigio Ceron MD HEMATOLOGY ORDERABLE S Performing Organization Address [facility] de Phone Number [facility] * (ABNORMAL) APTT (12/31/2011 3:38 AM EST) Partial Thromboplastin Time 47(H) 25 - 35 sec [facility] Comment: Recommended therapeutic PTT range for full dose unfractionated heparin is 80-114 seconds. Blood specimen (specimen) 12/31/2011 3:38 AM EST 12/31/2011 3:50 AM EST Narrative Resulting Agency Comment Spec In Lab Andi Rene MD HEMATOLOGY ORDERABLE S Performing Organization Address [facility] de Phone Number [facility] * (ABNORMAL) BMP w/fasting Glucose (12/31/2011 3:38 AM EST) Glucose Fasting 114(H) 65 - 99 mg/dL [facility] Comment: ?Fasting* Glucose Interpretive Criteria Normal ?65-99 [...] of Diabetes Mellitus, Position Statement from the [place] Diabetes Association. ??Diabetes Care, Volume 33, Supplement [...] (Bezet) 413 ms MUSE SYSTEM Calculated P [place] 24 degrees MUSE SYSTEM Calculated R [place] 25 degrees MUSE SYSTEM Calculated T [place] 54 degrees MUSE SYSTEM INTERPRETATION Sinus tachycardia [...] JR ?Ordered By: ANDI RENE ? MR#: [id number] ?LOC: ??[facility] ? /Sex: ??1975 (36 years), [...] Andi Rene MD MICROBIOLOGY - BLOOD ORDERABLES [facility] * Blood culture (12/30/2011 4:51 PM EST) Blood Culture ? Patient Name: GEOVANNA DIXON JR ?Ordered By: ANDI RENE ? MR#: [id number] ?LOC: ??[facility] ? /Sex: ??1975 (36 years), [...] BANK LAB ORDER RANDELL Performing Organization Address City/[facility]/ZIP Co de Phone Number [facility] * ABO/RH TYPING (12/30/2011 4:25 PM EST) ABORH Type A Pos [facility] Blood specimen (specimen) 12/30/2011 4:25 PM EST 12/30/2011 4:36 PM EST Narrative Resulting Agency Comment Spec In Lab Andi Rene MD BLOOD BANK LAB ORDER RANDELL [facility] * Glucose, random (12/30/2011 4:25 [...] HEMATOLOGY ORDERABLE S Performing Organization Address [facility] Co de Phone Number [facility] NELSON * Cardiac Enzymes (12/30/2011 2:08 PM EST) Troponin-T 0.03 <=0.03 ng/mL [facility] Comment: 0.03 ng/mL: Represents the 99th percentile upper reference limit for normals. >0.03 ng/mL: Elevated cardiac troponin T level indicative of myocardial damage. Diagnosis of acute, evolving or recent ID requires a typical rise and gradual fall [...] consensus document of the Joint Society of Cardiology/[place] College of Cardiology Committee for the redefinition of myocardial infarction. Journal of the [place] College of Cardiology 2000; 36: 959-969] Creatine Kinase 72 0 - 200 unit/L [facility] Blood specimen (specimen) 12/30/2011 2:08 PM EST 12/30/2011 2:27 PM EST Narrative Resulting Agency Comment Spec In Lab Remigio Ceron MD CHEMISTRY ORDERABLES Performing Organization Address [facility] Co de Phone Number [facility] NEL[facility] * HIV (12/30/2011 10:18 AM EST) Pathologist [facility] HIV 1/2 Ab Negative [facility] NEL[facility] Blood [...] ZACK AUSTIN P ?(Age): 1975(36) Med Rec#: ?[id number] ? Sex: ?M ? [place] Ht / Wt: ??180(cm)/124(kg) Pt. Loc: ? Adult Floor ?BSA: ?2.41 Study Date: ?12/30/2011 ? Pt. Type: Inpatient Tape: ? Referring: Remigio Ceron [employer]: Benjamin Lundberg Diagnosis: ??Chest pain (786.50) CPT Code(s): ??Spectral Doppler (53034), ??Color Doppler (95719), ??Echo Full (34794), Indication(s): ??Chest Pain Rhythm: HR ?BP ?106/60 [...] 12/30/2011 10:01:28 Images reviewed and interpretation verified [facility] Cardiac Ultrasound Laboratory Procedure Note Zak Coley MD - 12/30/2011 Procedure: Transthoracic Echocardiogram Patient: ZACK Llanos DOB(Age): 1975(36) Med Rec#: [id number] Sex: M [place] [facility] Ht / Wt: 180(cm)/124(kg) Pt. Loc: Adult Floor BSA: 2.41 Study Date: 12/30/2011 Pt. Type: Inpatient Tape: Referring: OlvineamonantioneRemigio wu [employer]: Benjamin Lundberg Diagnosis: Chest pain (786.50) CPT Code(s): Spectral Doppler (82086), Color Doppler (52850), Echo Full (44783), Indication(s): Chest Pain Rhythm: HR BP 106/60 [...] 12/30/2011 10:01:28 Images reviewed and interpretation verified [facility] Cardiac Ultrasound Laboratory Remigio Ceron [...] Urine Dipstick Clear Clear [facility] Specific [place] Urine Automated 1.019 1.002 - 1.030 CERNER [...] Lab Andi Rene MD URINE ORDERABLES [facility] * Rapid Qual Drug Screen, Urine ([facility] (12/30/2011 9:32 AM EST) U IVAN Screen See Note [facility] Comment: Urine drug of abuse results: ?Amphetamines [...] Laboratory. Please contact the chemistry laboratory at [phone] with questions. Urine specimen (specimen) 12/30/2011 9:32 AM EST 12/30/2011 9:45 AM EST Narrative Resulting Agency Comment Spec In Lab Andi Rene MD URINE ORDERABLES Performing Organization Address City/[facility] Co de Phone Number [facility] C[facility] * Urine culture Clean Catch Urine (12/30/2011 9:31 AM EST) Urine Culture ? Patient Name: ZACK REYNA, GEOVANNA Llanos ?Ordered By: ANDI RENE ? MR#: [id number] ?LOC: ??[facility] ? /Sex: ?? 4 (36 [...] - GENER AL ORDERABLES Performing Organization Address City/State/[facility] [...] [facility]AN CERDAIUM Estimated Average Glucose 128 mg/dL [facility] Comment: eAG equivalents for HbA1c percentages: HbA1c(%) [...] into estimated average glucose values. ??Diabetes Care 2008:31(8):4812-8181. Blood specimen (specimen) 12/30/2011 7:07 AM EST 12/30/2011 7:18 AM EST Narrative Resulting Agency Comment Spec In Lab Remigio Ceron MD CHEMISTRY ORDERABLES Performing Organization Address [facility] Co de Phone Number [facility] [employer] ([employer])[facility] * (ABNORMAL) APTT (12/30/2011 5:45 AM EST) Partial Thromboplastin Time 45(H) 25 - 35 sec [facility] Comment: Recommended therapeutic PTT range for full dose unfractionated heparin is 80-114 seconds. Blood specimen (specimen) 12/30/2011 5:45 AM EST 12/30/2011 6:10 AM EST Narrative Resulting Agency Comment Spec In Lab Andi Rene MD HEMATOLOGY ORDERABLE S Performing Organization Address [facility] de Phone Number [facility] [employer] ([employer])[facility] * (ABNORMAL) Glucose, fasting (12/30/2011 5:45 AM EST) Glucose Fasting 108(H) 65 - 99 mg/dL [facility] Comment: ?Fasting* Glucose Interpretive Criteria Normal ?65-99 [...] of Diabetes Mellitus, Position Statement from the [place] Diabetes Association. ??Diabetes Care, Volume 33, Supplement 1, Nov 2009 Blood specimen (specimen) 12/30/2011 5:45 AM EST 12/30/2011 6:10 AM EST Narrative Resulting Agency Comment Spec In Lab Remigio Ceron MD CHEMISTRY ORDERABLES Performing Organization Address City/[facility] Co de Phone Number [facility] * (ABNORMAL) Triglyceride (12/30/2011 5:45 AM EST) Triglyceride 245(H) <=149 mg/dL [facility] [employer] ([employer])[facility] Comment: Reference Range: Normal triglycerides: ??<150 mg/dL Borderline high: ??150-199 mg/dL High: ??200-499 mg/dL Very high: ??>qr=761 mg/dL ELISEO 2001; 28519):1164-1129 Blood specimen (specimen) 12/30/2011 5:45 AM EST 12/30/2011 6:10 AM EST Narrative Resulting Agency Comment Spec In Lab Remigio Ceron MD CHEMISTRY ORDERABLES Performing Organization Address [facility] Co de Phone Number [facility] [employer] ([employer])[facility] * (ABNORMAL) HDL/Cholesterol Profile (12/30/2011 5:45 AM EST) Cholesterol, Total 170 <=199 mg/dL [facility] [employer] ([employer])[facility] Comment: Recommendations of the NCEP Adult Treatment Panel for the following risk cutoff thresholds for the [place] population: Desirable: <200 mg/dL Borderline High: 200-239 mg/dL High: > or = 240 mg/dL HDL Cholesterol 36(L) >=40 mg/dL [facility] Comment: Reference range: ??Low HDL: ?? < 40 mg/dL ??Normal: ?40-60 mg/dL ??Desirable: > 60 mg/dL ELISEO 2001; 285(19):2755-7933 Cholesterol/HDL Ratio 4.7 ratio [facility] Comment: A Cholesterol to HDL ratio below 4:1 is desirable. ??Studies suggest that increased CAD risk occurs at ratios above 5 for females and above 6 for men. ? [place] Heart Association ??(http://www.americanheart.org) ? Jazmine Int Med, 1994; 121:641 ? AM J Med, 1998; 105(1A):48S Blood specimen (specimen) 12/30/2011 5:45 AM EST 12/30/2011 6:10 AM EST Narrative Resulting Agency Comment Spec In Lab Remigio Ceron MD CHEMISTRY ORDERABLES Performing Organization Address [facility] Co de Phone Number [facility] * (ABNORMAL) LDL Cholesterol, Direct (12/30/2011 5:45 AM EST) LDL Cholesterol, Direct 110(H) <=99 mg/dL [facility] Comment: The National Cholesterol Education Program (NCEP) has set the following guidelines for LDL Cholesterol: Reference range: ?? Optimal: ?<100 mg/dL ?? Near Optimal/Above Optimal: ?? 100-129 mg/dL ?? Borderline high: ?130-159 mg/dL ?? High: ? 160-189 mg/dL ?? Very high: ?>vb=716 mg/dL ELISEO 2001: 285(19):6595-6060 Blood specimen (specimen) 12/30/2011 5:45 AM EST 12/30/2011 6:10 AM EST Narrative Resulting Agency Comment Spec In Lab Remigio Ceron MD CHEMISTRY ORDERABLES Performing Organization Address City/[facility] Co de Phone Number [facility] NELSON * (ABNORMAL) Cardiac Enzymes (12/30/2011 5:45 AM EST) Troponin-T 0.05(H) <=0.03 ng/mL [facility] Comment: 0.03 ng/mL: Represents the 99th percentile upper reference limit for normals. >0.03 ng/mL: Elevated cardiac troponin T level indicative of myocardial damage. Diagnosis of acute, evolving or recent ID requires a typical rise and gradual fall [...] consensus document of the Joint Society of Cardiology/[place] College of Cardiology Committee for the redefinition of myocardial infarction. Journal of the [place] College of Cardiology 2000; 36: 959-969] Creatine Kinase 82 0 - 200 unit/L [facility] NEL[facility] Blood specimen (specimen) 12/30/2011 5:45 AM EST 12/30/2011 6:10 AM EST Narrative Resulting Agency Comment Spec In Lab Remigio Ceron MD CHEMISTRY ORDERABLES Performing Organization Address [facility] Co de Phone [...] damage. Diagnosis of acute, evolving or recent ID requires a typical rise and gradual fall [...] consensus document of the Joint Society of Cardiology/[place] College of Cardiology Committee for the redefinition of myocardial infarction. Journal of the [place] College of Cardiology 2000; 36: 959-969] Creatine Kinase 86 0 - 200 unit/L [facility] Blood specimen (specimen) 12/29/2011 11:29 PM EST 12/29/2011 11:34 PM EST Narrative Resulting Agency Comment Spec In Lab Remigio Ceron MD CHEMISTRY ORDERABLES Performing Organization Address [facility] Co de Phone Number [facility] CAENNI[facility] * Prothrombin Time (12/29/2011 11:29 PM EST) Prothrombin Time 13.2 11.9 - 14.7 sec [facility] MILLENNI[facility] Comment: [facility] Transfusion Committee Guidelines: INR less [...] HEMATOLOGY ORDERABLE S Performing Organization Address [facility] de Phone Number [facility] * Hepatic [...] Ceron MD CHEMISTRY ORDERABLES Performing Organization Address [facility] Co de Phone Number [facility] CERDA[facility] * TSH (12/29/2011 11:29 PM EST) Thyroid Stimulating Hormone 0.39 0.27 - 4.20 mcIU/mL [facility] Blood specimen (specimen) 12/29/2011 11:29 PM EST 12/29/2011 11:34 PM EST Narrative Resulting Agency Comment Spec In Lab Remigio Ceron MD CHEMISTRY ORDERABLES Performing Organization Address [facility] Co de Phone Number [facility] C[facility] * Phosphorus (12/29/2011 11:29 PM EST) Phosphorus 3.1 2.5 - 4.5 mg/dL [facility] Blood specimen (specimen) 12/29/2011 11:29 PM EST 12/29/2011 11:34 PM EST Narrative Resulting Agency Comment Spec In Lab Remigio Ceron MD CHEMISTRY ORDERABLES Performing Organization Address [facility] Co de Phone [...] Time 34 25 - 35 sec [facility] Comment: Recommended therapeutic PTT range for full dose unfractionated heparin is 80-114 seconds. Blood specimen (specimen) 12/29/2011 11:29 PM EST 12/29/2011 11:34 PM EST Narrative Resulting Agency Comment Spec In Lab Remigio Ceron MD HEMATOLOGY ORDERABLE S Performing Organization Address City/[facility] Co de Phone Number [facility] * EKG 12 Lead (12/29/2011 11:13 PM EST) Ventricular rate 108 BPM MUSE SYSTEM Atrial Rate 108 BPM MUSE SYSTEM P-R Interval 150 ms MUSE SYSTEM QRS Duration 106 ms MUSE SYSTEM Q-T Interval 340 ms MUSE SYSTEM QTC Calculated (Bezet) 455 ms MUSE SYSTEM Calculated P [place] 19 degrees MUSE SYSTEM Calculated R [place] 31 degrees MUSE SYSTEM Calculated T [place] 51 degrees MUSE SYSTEM INTERPRETATION Sinus tachycardia Nonspecific T wave abnormality Abnormal ECG No previous ECGs available Confirmed by Madi FORD MD, Saulo ([id number]) on 12/30/2011 2:22:07 PM MUSE SYSTEM 12/29/2011 11:1 3 PM EST 12/30/2011 2:22 PM EST Remigio Ceron MD ECG ORDERABLES Performing Organization Address [facility] Co de Phone Number MUSE SYSTEM documented in this encounter Visit Diagnoses Diagnosis Chest pain- Primary Chest pain, unspecified HTN (hypertension) Unspecified essential hypertension Hyperlipidemia Other and unspecified hyperlipidemia Depression Depressive disorder, not elsewhere classified 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 Call housesmith for additional fluid orders: pager #[phone]. Rate/Dose Verify 01/05/2012 2:00 AM EST 125 [...] using own, Routine 0900 (Given - Provider: Mcihelle Chong RN)1500 (Given - Provider: Michelle Chong [...] Routine documented in this encounter Care Teams Airdox Fitter Relationship Specialty Start Date End Date Patric Al MD PCP - General 12/29/11 02/26/19 documented as of this encounter
--- OUTSIDE RECORDS SUMMARY | 2024-10-31 17:11 | XMS_ITS | Encounter Summary ---
Author Organization [facility] [place] [address] Care Team Providers Care [place] Director Name Role Phone Guanako Gusman MD Primary Care Provider Encounter Details Date Type Department Care Team (Late st Contact Info) Description 01/04/2012 [place] [phone] Unknown None Social History Tobacco Use Types [...] PM EST Office Visit [place] [phone] Isabela Hayward, E COMMERCE DIRECTOR [facility] [place] [address] 11/10/2024 10:00 AM EST Office [place] [phone] Dai Whitman APRN 11/21/2024 2:15 PM EST Office [place] [address] Dayanara Grover MD [facility] [place] [address] documented as of this encounter Procedures Procedure Name Priority Date/Time Associated Diagnosis Comments TRANSESOPHAGEAL ECHOCARDIOGRAM (HELEN) Routine 01/04/2012 documented in this encounter Results * TRANSESOPHAGEAL ECHOCARDIOGRAM (HELEN) (01/04/2012) Anatomical Region Laterality Modality Other 01/04/2012 Narrative 01/04/2012 3:49 PM EST Procedure: ? Transesophageal Echocardiogram Patient: ? QUIANA AUSTIN P ?(Age): () ? Med Rec#: ?[id number] ? Sex: ? Site Loc: ? Ht / Wt: ??(cm)/(kg) ? Pt. Loc: ?BSA: ? Study Date: ?01/04/2012 ? Pt. Type: Tape: ? Referring: BASILIO Referring: Alfonso Morales Reading: Rodrigo Montgomery ([id number]) Performing: Rodrigo Montgomery ([id number]) Assistive Technology Specialist: KEVIN Diagnosis:CPT Code(s): Indication(s):Rhythm: SUMMARY: 1. Intraoperative [...] ? Mid-Inferior ?Normal ? Mid-Inferoseptal ?Normal ? Douds-Septal ? Normal ? Douds-Anterior ? Normal ? Douds-Lateral ?Normal ? Douds-Inferior ? Normal ? Douds-Tip ?Normal ? Chambers ?Value ?Units (Range) ? LV EF Est ? 60 ? % (55 to 80) ? This report has been electronically signed by: Rodrigo Montgomery MD ? 01/04/2012 15:48:22 Images reviewed and interpretation verified [facility] Cardiac Ultrasound Laboratory Procedure Note Unknown - 01/04/2012 Procedure: Transesophageal Echocardiogram Patient: QUIANA MILLIGAN(Age): () Med Rec#: [id number] Sex: Site Loc: Ht / Wt: (cm)/(kg) Pt. Loc: BSA: Study Date: 01/04/2012 Pt. Type: Tape: Referring: BASILIO Referring: Alfonso Morales Reading: Rodrigo Montgomery ([id number]) Performing: Rodrigo Montgomery ([id number]) Assistive Technology Specialist: KEVIN Diagnosis:CPT Code(s): Indication(s):Rhythm: SUMMARY: 1. Intraoperative [...] Normal Mid-Posterolateral Normal Mid-Inferior Normal Mid-Inferoseptal Normal Douds-Septal Normal Douds-Anterior Normal Douds-Lateral Normal Douds-Inferior Normal Douds-Tip Normal Chambers Value Units (Range) LV EF Est 60 % (55 to 80) This report has been electronically signed by: Rodrigo Montgomery MD 01/04/2012 15:48:22 Images reviewed and interpretation verified [facility] Cardiac Ultrasound Laboratory Unknown ECHO ORDERABLES documented in this encounter Visit Diagnoses Not on filedocumented in this encounter Care Teams [employer] Director Relationship Specialty Start Date End Date Guanako Gusman MD PCP - General 12/29/11 02/26/19 documented as of this encounter
--- OUTSIDE RECORDS SUMMARY | 2024-10-31 17:12 | XMS_ITS | Encounter Summary ---
Author Organization [facility] [place] [address] Care Team Providers Care Therapist Occupational Name Role Phone Guanako Gusman MD Primary Care Provider [phone] Encounter Details Date Type Department Care Team (Late st Contact Info) Description 12/31/2011 2:00 PM EST Office Visit [place] [address] Dai Iglesias, [place] Social History Tobacco Use [...] PM EST Office [place] [address] Isabela Hayward, RESHMA [facility] [place] [address] 11/10/2024 10:00 AM EST Office [place] [phone] Dai Whitman APRN 11/21/2024 2:15 PM EST Office [place] [address] Dayanara Grover MD [facility] [place] [address] documented as of this encounter Visit Diagnoses Not on filedocumented in this encounter Care Teams Therapist Occupational Relationship Specialty Start Date End Date Guanako Gusman MD PCP - General 12/29/11 02/26/19 documented as of this encounter
--- OUTSIDE RECORDS SUMMARY | 2024-10-31 17:12 | XMS_ITS | Encounter Summary ---
Author Organization [facility] Address [facility] [place] [address] Care Team Providers Care Pharmacy Director Name Role Phone Guanako Gusman MD Primary Care Provider [phone] Encounter Details Date Type Department Care Team (Late st Contact Info) Description 01/01/2012 11:59 PM EST Anesthesia [place] [address] Reny Melchor MD [facility] [place] [address] Anesthesia Record Procedure Summary Procedure Name Responsible [...] PM EST Office Visit Infectious Disease at [place] [phone] Isabela Hayward, ELEMENTARY EDUCATION TEACHER [facility] [place] [address] 11/10/2024 10:00 AM EST Office [place] [address] Dai Whitman APRN 11/21/2024 2:15 PM EST Office [place] [address] Dayanara Grover MD [facility] [place] [address] documented as of this encounter Visit Diagnoses Not on filedocumented in this encounter Care Teams Pharmacy Director Relationship Specialty Start Date End Date Guanako Gusman MD PCP - General 12/29/11 02/26/19 documented as of this encounter
--- OUTSIDE RECORDS SUMMARY | 2024-10-31 17:12 | XMS_ITS | Encounter Summary ---
[place] [address] Care Team Providers Care Dianetic Counselor Name Role Phone Patric Al MD Primary Care Provider [phone] Encounter Details Date Type Department Care Team (Late st Contact Info) Description 01/04/2012 12:18 PM EST - 01/04/2012 4:46 PM EST [place] [id number] Inna Tovar MD ENDOSCOPIC HARVEST VEIN(S) FOR [...] 12:11 PM EST Geovanna Dixon Jr. 1975 [id number] New Diagnosis of Pre-Diabetes For discharge should [...] Some considerations about using metformin in Prediabetics: [place] Diabetes Prevention Program (DPP) as well as other minor studies and meta-analyses has convincingly demonstrated the efficacy of metformin in this patient group [pre-diabetics]. In addition, results of the 10 year DPP follow up have recently been published, demonstrating the long term acute care registered nurse safety and sustainability of metformin treatment benefits [...] - will be starting Cardiac rehab at [facility], encouraged to increase physical activity as advised by cardiologists Weight Loss - A 7% weight loss could significantly improve his BG control Tobacco cessation - There is growing evidence that cigarette smokers are more prone than the general population to develop T2DM. Increase in insulin resistance with tobacco use. Darcie Lange APRN [facility] Endocrinology Diabetes Management [phone] * Patient Instructions* Ricky Graham PA - [...] Anne Tovar and/or the Cardiothoracic Surgery Physician Psychotherapist Team may be reached at . Activity [...] Dr. Inna Tovar. You may use a Wanship Track or treadmill but avoid any pulling [...] friends, go to a movie, go to jainism, etc. Heavy activities: No hunting, skiing, jogging, [...] would be to continue to go [place]. He has quit this way before and [...] only 10% of those who quit [place] are able to be successful. The calculated savings once he quits smoking would be $54 a week, $234 a month, and $2803 a year. If he quits now his savings will be $28,030 in 10 years. The patient was provided with a [facility] Smoking Cessation packet and the contents have [...] given to patient. Discharge summary faxed to [facility] and receipt confirmed via phone. [...] basis Equipment needs: none ADEBAYO Cunningham GARRETT, HIRE CAR DRIVER Pager: [phone] Physical Therapy Rehabilitation Department * Michelle Chong [...] services. Patient would like VNA services through [facility]. PHONE: [phone] FAX: [phone]. Referral made via E-discharge. Please see home care orders that must be included in discharge summary for VN services to start. Patient has glucometer and supplies at bedside. Pt. Denies any further needs from [facility]. Pt. Gets scripts through [place] Medicaid with co-pay. He denies any concerns related to co-pay. * Darcie Lange APRN - 01/07/2012 9:57 AM EST Geovanna Dixon Jr. 1975 [id number] PATRIC AL MD Follow Up Diabetes Consult [...] Some considerations about using metformin in Prediabetics: [place] Diabetes Prevention Program (DPP) as well as other minor studies and meta-analyses has convincingly demonstrated the efficacy of metformin in this patient group [pre-diabetics]. In addition, results of the 10 year DPP follow up have recently been published, demonstrating the group home safety and sustainability of metformin treatment benefits [...] - will be starting Cardiac rehab at [facility], encouraged to increase physical activity [...] sensitive Novolog correction only Darcie Lange APRN [facility] Endocrinology Diabetes Management [phone] Pager [phone] This case was discussed with Dr. Christina Brody. 25 min time spent in patient care with 20 counseling, seeing patient, changing orders and discussion with the patient and the primary team as well as nursing. * Inna Tovar MD - 01/07/2012 9:39 AM EST Cardiac Surgery Progress Note: ID: [id number] 36/M POD #[address] Tovar [...] results found for this basename: phart, po2art, dgt4nuq Assessment/Plan: Pathway. Neuro: ambulating on own per [...] (ie take out the trash or picker packer his child) Objective:Pt was seen today [...] interventions: 30 minutes NAM TRINIDAD PT Pager: [phone] Physical Therapy Rehabilitation Department * Vibha Martines [...] FOR CABG performed by INNA TOVAR at [facility] MAIN OR ??? Cabg, artery-vein, single 01/04/2012 @CABG, VENOUS & ARTERIAL GRAFT;SINGLE VEIN GRAFT performed by INNA TOVAR at [facility] MAIN OR Outpatient prescriptions marked [...] yes Date: 12/29/11 Why then: Admission to [facility] What will be different this time: Just [...] in places where it is forbidden ex jainism No Yes 0 3. Which cigarette would [...] would be to continue to go [place]. He has quit this way before and it lasted several years, so he has a history of being successful with this method. He also pointed out that his father and an uncle quit (for now over 10 years) by going [place]. I told him that it is difficult to recommend a quit method that has a 90% failure rate, but that said, it is his choice and that I would provide him with a toolkit of information so that he will be as knowledgeable as possible about nicotineaddiction and how to stay quit. And we do know that 10% of those who quit [place] are able to be successful. I calculated and shared with him that his savings once he quits smoking would be $54 a week, $234 amonth, and $2803 a year. If he quits now his savings will be $28,030 in 10 years. The patient has also been provided with a [facility] Smoking Cessation packet and the contents have been reviewed with him. The patient now has the Quit line number for [place] and has also been encouraged to use this if needed for support. In addition he was in agreement with a referral to the [place] Quitnetworkand I have FAXed a referral to [...] Nutrition Intervention: Hospital Day 9 Diet Order: [facility] Appetite: fair Food allergies: none Chewing/Swallowing difficulty: none Height: (cm) 180.3 Weight: (kg) 127.9 01/06/12 Wt hx: (kg) 124.5 12/29/11 BMI: 38.4 Education: [facility] dietary guidelines. Tips To Better Food Intake (Protein) dietary guidelines. Verbalized good understanding. Education material, with means of contact provided. Assessment: Patient verbalized good understanding of protein needs for healing as well as [facility] Heart Healthy guidelines. I have added high protein snacks between meals and CIB shakes to meal trays for extra protein/nutrition. Nutrition Plan: Diet: [facility] Recommend Daily Multi Vitamins. Added high protein snacks. CIB w/skim milk shakes three times per day. Encourage good po intake. Monitor weight. Support and encouragement provided. Nutrition services to follow weekly thru hospital course unless consulted in the interim. ACOSTA SMALL * Inna Tovar MD - 01/06/2012 1:50 PM EST Cardiac Surgery In Patient Progress Note Patient Name: Geovanna Dixon Jr. : [id number] MR#: [id number] Admitted: 12/29/2011 Hospital Day 8 days Problem [...] Subjective and 24 hr events: -[facility]red to [facility] - No BM - Pain about [...] Hamlin RN - 01/06/2012 10:11 AM EST [facility] CARDIAC REHABILITATION Geovanna Dixon Jr. was seen today regarding participation in outpatient Phase 2 Cardiac Rehabilitation at [facility] . A referral will be sent to this program. The patient was given contact information and should expect to be contacted by the program within 1-2 weeks after discharge from [facility]. * Kareen Mendoza, PT - 01/05/2012 3:59 [...] FOR CABG performed by INNA TOVAR at [facility] MAIN OR ??? Cabg, artery-vein, single 01/04/2012 @CABG, VENOUS & ARTERIAL GRAFT;SINGLE VEIN GRAFT performed by INNA TOVAR at [facility] MAIN OR Social History: Patient [...] minutes brief evaluation KAREEN MENDOZA, PT Pager: [phone] Physical Therapy Rehabilitation Department * Camille Angulo [...] abx Heme: asa Endo: insulin gtt Dispo: [facility]-->floor Rosie Jones RN - 01/04/2012 3:06 PM [...] A: medical plan still evolving. P: This singer songwriter or colleague from the Office of Care [...] FULL CODE Paola Akers PGY 1 Pager [phone] Attending Addendum: I spoke with the patient and his family briefly this am. I agree with the principal findings. The impression and plan incorporate my input. No contraindication to surgery today. Sarthak Pollard MD [facility] pager [phone] * Sarthak Pollard MD - 01/03/2012 11:08 [...] Sarthak Pollard MD [facility] pager [phone] * Bal John MD - 01/02/2012 3:10 [...] Cristina Ambriz MD PGY1, Internal Medicine Pager [phone] 01/02/2012 Attending Addendum: I have interviewed and examined the patient. I agree with the principal findings. The impression and plan incorporate my input. As above, doing well. Will keep on heparin until surgery. No angina, HF, bleeding, or evidence of HIT. Sarthka Pollard MD [facility] pager [phone] * Inna Tovar MD - 01/01/2012 3:17 [...] mg BID Paola Akers PGY 1 Pager [phone] Attending Addendum: I have interviewed and examined the patient. I agree with the principal findings. The impression and plan incorporate my input. He is disappointed that his surgery has been postponed until Wednesday butunderstands. He remains cp free. I've reviewed his angiograms and believe he needs to stay on heparin until surgery. All questions answered. Sarthak Pollard MD [facility] pager [phone] * Andi Rene MD - 12/31/2011 5:20 PM EST CARDIOLOGY INPATIENT PROGRESS NOTE Geovanna Viet Dixon Jr. SUMMARY: Geovanna Dixno JrFlorencio is a 36 y.o. male with: [...] mg BID Paola Akers PGY 1 Pager [phone] Cardiology Attending Progress Note Addendum: I have [...] would like to attend cardiac rehab at [facility] in [facility]. We will [...] Call saucedo within reach, family at bedside. [phone]) Patient off unit to XRAY with transpo & SLURRY CONTROL TENDER. documented in this encounter H&P Notes * [...] alleviate the pain. He eventually presented to [facility] on Wednesday wherehe had [...] motorcycles and hunting He is NOT a latter-day FHx: Heart disease on both sides of [...] 13.2 12/29/2011 PTT 31 12/30/2011 Troponins at [facility]: 0.05-->0.03 Imaging: Echo 12/30/11: 1. The left [...] loss were emphasized as they relate to group home patency of his grafts. He should receive smoking cessation counseling donya. One post op consideration will be vent wean and respiratory status given likely underlying CAMILLA and his known narcolepsy. 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 Pt seen and interviewed with [...] +active 25 pack year smoker comes to [facility] from [facility] for evaluation of intermittent CP since [...] history (both paternal grandparents passing away from [facility] and paternal aunts/uncles with histories of [...] FULL Provider: REMIGIO CERON MD Pager #: [phone] documented in this encounter Procedure Notes * Provider, Scanning - 01/10/2012 1:46 PM ESTAssociated Order(s): SCAN DOC: TECHNICIAN PLANT AND MAINTENANCE * Provider, Scanning - 01/10/2012 1:46 PM [...] EST * Consult Note - Darcie Lange, FERRY CAPTAIN - 01/06/2012 3:45 PM EST Geovanna Dixon Jr. 1975 [id number] Inpatient Endocrinology Glucose Management Consult Date of Consultation: 01/06/2012 Place of Consultation: [facility] Consult Requested by: Dr. Tovar, [place] Surgery Reason for Consultation: Geovanna Dixon Jr. is a 36 y.o. male who was admitted on 12/29/2011 for the diagnosis of CAD now s/p CABG x2 with Dr. Tovar, POD #2. We are asked to see him to assist with diabetes management and to provide a review of his group home diabetes plan. Diabetes History: Geovanna Dixon Jr. has NO history of diabetes, + for a family history of diabetes on mother's side and some on father's. Family history is also very significant for coronary artery disease. He stated that he has been tested in the past for diabetes but told that he does have diabetes, uncertain on A1C #. As per [facility] labs last A1C = 6.1% which suggests [...] Diabetes Care: Medications: None Monitoring: None Diet: [facility] Healthy No Known Allergies Past Medical History: [...] considerations about using metformin in Prediabetics: ?? [place] Diabetes Prevention Program (DPP) as well as other minor studies and meta-analyses hasconvincingly demonstrated the efficacy of metformin in this patient group [pre-diabetics]. In addition, results of the 10 year DPP follow up have recently been published, demonstrating the long term acute care registered nurse safety and sustainability of metformin treatment benefits [...] - will be starting Cardiac rehab at [facility], encouraged to increase physical activity [...] metformin 500 mg QD Darcie Lange APRN [facility] Endocrinology Diabetes Management [phone] Pager [phone] This case was discussed with Dr. Christina [...] alleviate the pain. He eventually presented to [facility] on Wednesday where he [...] Course: [facility] [...] Medications: Geovanna Dixon Jr. Home Medication Instructions CRAIG:[id number] Printed on:01/08/12 120 Medication Information simvastatin (ZOCOR) 20 mg tablet [...] Anne Tovar and/or the Cardiothoracic Surgery Physician Psychotherapist Team may be reached at . Activity [...] Dr. Inna Tovar. You may use a Wanship Track or treadmill but avoid any pulling [...] friends, go to a movie, go to jainism, etc. Heavy activities: No hunting, skiing, jogging, [...] would be to continue to go [place]. He has quit this way before and [...] only 10% of those who quit [place] are able to be successful. The calculated savings once he quits smoking would be $54 a week, $234 a month, and $2803 a year. If he quits now his savings will be $28,030 in 10 years. The patient was provided with a [facility] Smoking Cessation packet and the contents have been reviewed with him. The patient now has the Q[place] number for [place] and has also been encouraged to use this ifneeded for support. In addition he was in agreement with a referral to the [place] Quitnetwork and a referral was faxed to [...] Some considerations about using metformin in Prediabetics: [place] Diabetes Prevention Program (DPP) as well as other minor studies and meta-analyses has convincingly demonstrated the efficacy of metformin in this patient group [pre-diabetics]. In addition, results of the 10 year DPP follow up have recently been published, demonstrating the group home safety and sustainability of metformin treatment benefits [...] - will be starting Cardiac rehab at [facility], encouraged to increase physical activity as advised by cardiologists Weight Loss - A 7% weight loss could significantly improve his BG control Tobacco cessation - There is growing evidence that cigarette smokers are more prone than the general population to develop T2DM. Increase in insulin resistance with tobacco use. Darcie Lange APRN [facility] Endocrinology Diabetes Management [phone] Medications: Take only those medications listed on [...] should resume a low fat, low cholesterol, [place] Heart Association Diet. Driving: No driving for [...] in outpatient Phase 2 Cardiac Rehabilitation at [facility] . A referral will be sent to this program. He was given contact information and shouldexpect to be contacted by the program within 1-2 weeks after discharge from [facility]. Arrangements for VNA/home care: PATIENT'S LOCATION: Geovanna Dixon Jr. [address] [place] [address] There is no home phone number on file. Telephone Information: In discussion with the attending physician, it is certified that this patient is under their care and that they, or a nurse practitioner, clinical nurse specialist or physician's habilitation assistant who is working directly with them, [...] for services as follows: HOME HEALTH AGENCY: [facility]. PHONE: [phone] FAX: [phone] RN orders: Cardiopulmonary assessment, incisional assessment, assess [...] issues please call the Cardiac SurgeryOffice at [phone] FOR MEDICARE ONLY: (please delete this section if not Medicare) In discussion with the attending physician, it is certified that the clinical findings support thatthis patient is homebound (i.e. absences from home require considerable and taxing effort and are for medical reasons or yazidism services of infrequently or of short duration [...] nurse practitioner, clinical nurse specialist or physician's habilitation assistant who is working directly with them, [...] effort and are for medical reasons or yazidism services of infrequently or of short duration when for other reasons) Please note that any additional orders needs or changes will need to be obtained from this patient's PCP: PATRIC AL MD [phone] All VNA agencies which cover the area of patient's residence have been reviewed, either verbally feli writing, and patient/family have chosen the indicated home health care agency for home services. Comments: Questions: Responses: Agency name and contact information [facility] Patient location post discharge home What services are requested Start date 01/10/2012 Responsible MD post discharge contact info PCP RN to remove chest tube sutures on or after 01/13/12. Signed: Ricky Graham PA-C [facility] Section of Cardiothoracic Surgery Date: 01/08/12 CC: MD [facility]EN[facility] EMERGENCY DEPT [address] [place] [address] [place] [address] * Op Note - Inna Tovar MD - 01/04/2012 3:55 PM EST [facility] Operative Note Patient Name: Geovanna Dixon Jr. : [id number] MR#: [id number] Case Date: 01/04/2012 Surgeon: Surgeon(s) and Role: [...] enlarged. There was diffuse disease in all [place] vessels. The OFELIA and vein were of excellent quality. The lungs had early emphysematous changes. Procedure Details: The patient was brought to the operating room and given general anesthesia. A Miami-Haley catheter, radial arterial line, and Mendez catheter [...] fter inspection for adequate hemostasis, two #28 Estonian chest tubes were placed and brought out [...] Note Patient Name: Geovanna Dixon Jr. 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 No recent out door activities or [...] PM EST Office [place] [phone] Isabela Hayward, FERRY CAPTAIN [facility] [place] [address] 11/10/2024 10:00 AM EST Office [place] [phone] Dai Whitman APRN 11/21/2024 2:15 PM EST Office [place] [phone] Dayanara Grover MD [facility] [place] [address] Scheduled Referrals Name Type Priority Associated Diagnoses Orde r Schedule REFERRAL TO CARDIAC REHAB Outpatient Referral Routine Chest pain Ordered: 01/08/2012 documented as of this encounter Procedures Procedure Name Priority Date/Time Associated Diagnosis Comments CARDIAC CATHETERIZATION Routine 01/11/20 12 11:04 AM EST LAB SCAN 01/10/2012 1:46 PM EST TECHNICIAN PLANT AND MAINTENANCE SCAN 01/10/2012 1:46 PM EST CARDIAC CATH [...] 01/05/20 12 2:00 AM EST CARDIAC ENZYMES ([facility]/CGP) Routine 01/05/2012 2:00 AM EST CREATININE Routine [...] Routine 12/30/2011 4:14 PM EST CARDIAC ENZYMES ([facility]/CGP) STAT 12/30/2011 2:08 PM EST APTT STAT 12/30/2011 2:08 PM EST HIV SCREEN, 4TH GENERATION ([facility]/CGP/APD/NLH) Routine 12/30/2011 10:18 AM EST ECHOCARDIOGRAM TRANSTHORACIC [...] Routine 12/30/2011 7:07 AM EST CARDIAC ENZYMES ([facility]/CGP) STAT 12/30/2011 5:45 AM EST APTT STAT [...] 12/29/19 12 11:29 PM EST CARDIAC ENZYMES ([facility]/CGP) STAT 12/29/2011 11:29 PM EST APTT STAT [...] (Bezet) 453 ms MUSE SYSTEM Calculated P Spring 41 degrees MUSE SYSTEM Calculated R Spring 25 degrees MUSE SYSTEM Calculated T Spring 74 degrees MUSE SYSTEM INTERPRETATION Sinus tachycardia [...] SCAN EXT O RDR/RSLT * SCAN DOC: TECHNICIAN PLANT AND MAINTENANCE (01/10/2012 1:46 PM EST) Anatomical Region Laterality Modality Other Narrative 01/11/2012 8:32 AM EST Procedure Note Provider, Scanning - 01/10/2012 1:46 PM EST Scanning Provider MEDIA MGR SCAN EXT O RDR/RSLT * POCT GLUCOSE LAB USE ONLY (01/08/2012 12:00 PM EST) [facility] Glucose, POC 106 60 - 199 mg/dL [facility] Comment: Supplemental ranges: <110 mg/dL before meals <200 mg/dL all other times of the day Blood specimen (specimen) 01/08/2012 12:00 PM EST 01/08/2012 12:00 PM EST Andi Rene MD POINT OF CARE TEST O RDERABLES [facility] * Potassium (01/08/2012 10:05 AM EST) Potassium 4.2 3.5 - 5.0 mmol/L [facility] Comment: Please note: ??Patients with WBC [...] Tovar MD CHEMISTRY ORDERABLES Performing Organization Address [facility] Phone Number [facility] * POCT GLUCOSE LAB USE ONLY (01/08/2012 7:21 AM EST) Glucose, POC 144 60 - 199 mg/dL [facility] Comment: Supplemental ranges: <110 mg/dL before meals <200 mg/dL all other times of the day Blood specimen (specimen) 01/08/2012 7:21 AM EST 01/08/2012 7:21 AM EST Andi Rene MD POINT OF CARE TEST O RDTYESHA Performing Organization Address [facility] Phone Number [facility] * POCT GLUCOSE LAB USE ONLY (01/07/2012 8:43 PM EST) Glucose, POC 179 60 - 199 mg/dL [facility] Comment: Supplemental ranges: <110 mg/dL before meals <200 mg/dL all other times of the day Blood specimen (specimen) 01/07/2012 8:43 PM EST 01/07/2012 8:43 PM EST Andi Rene MD POINT OF CARE TEST O RDERAHERNANDEZ Performing Organization Address [facility] de Phone Number [facility] * POCT GLUCOSE LAB USE ONLY (01/07/2012 4:47 PM EST) Glucose, POC 128 60 - 199 mg/dL [facility] Comment: Supplemental ranges: <110 mg/dL before meals <200 mg/dL all other times of the day Blood specimen (specimen) 01/07/2012 4:47 PM EST 01/07/2012 4:47 PM EST Andi Rene MD POINT OF CARE TEST O GILDA Performing Organization Address [facility] de Phone Number [facility] * Potassium (01/07/2012 11:42 AM EST) Potassium 3.6 3.5 - 5.0 mmol/L [facility] Comment: Please note: ??Patients with WBC [...] Tovar MD CHEMISTRY ORDERABLES Performing Organization Address [facility] Phone Number [facility] * POCT GLUCOSE LAB USE ONLY (01/07/2012 11:41 AM EST) Glucose, POC 114 60 - 199 mg/dL [facility] Comment: Supplemental ranges: <110 mg/dL before meals <200 mg/dL all other times of the day Blood specimen (specimen) 01/07/2012 11:41 AM EST 01/07/2012 11:41 AM EST Andi Rene MD POINT OF CARE TEST O GILDA Performing Organization Address [facility] de Phone Number [facility] * XR chest routine PA & [...] LAB USE ONLY (01/07/2012 8:00 AM EST) [facility] Glucose, POC 116 60 - 199 mg/dL [facility] Comment: Supplemental ranges: <110 mg/dL before [...] MD HEMATOLOGY ORDERABLE S Performing Organization Address [facility] Co de Phone Number [facility] * Microalbumin, urine, random (01/06/2012 9:03 PM EST) Creatinine, Urine 136 mg/dL [facility] MILLENNIUM Albumin, Urine 14.4 mg/L CERNE R MILLENNIUM Albumin / Creatinin Ratio, Urine 11 mcg/mg Cr [facility] Comment: Reference Range* Random collection (mcg/mg creatinine) Normal ?<30 Microalbuminuria ?? 30 - 300 Clinical Albuminuria ?? >300 *[place] [employer]. Diabetic Nephropathy. Diabetes Care 1997;(Suppl 1):S24-S27 Exercise within 24 hour, infection, fever, CHF, marked hyperglycemia, and marked hypertension may elevate urinary albumin excretion over baseline values. Urine specimen (specimen) 01/06/2012 9:03 PM EST 01/06/2012 10:28 PM EST Narrative Resulting Agency Comment Spec In Lab Inna Tovar MD URINE ORDERABLES Performing Organization Address [facility] Co de Phone Number [facility] * POCT GLUCOSE LAB USE ONLY (01/06/2012 7:46 PM EST) Glucose, POC 127 60 - 199 mg/dL [facility] Comment: Supplemental ranges: <110 mg/dL before meals <200 mg/dL all other times of the day Blood specimen (specimen) 01/06/2012 7:46 PM EST 01/06/2012 7:46 PM EST Andi Rene MD POINT OF CARE TEST O RDERABLES Performing Organization Address [facility] Co de Phone Number [facility] * POCT GLUCOSE LAB USE ONLY (01/06/2012 4:24 PM EST) Glucose, POC 131 60 - 199 mg/dL [facility] Comment: Supplemental ranges: <110 mg/dL before meals <200 mg/dL all other times of the day Blood specimen (specimen) 01/06/2012 4:24 PM EST 01/06/2012 4:24 PM EST Andi Rene MD POINT OF CARE TEST O GILDA Performing Organization Address [facility] Phone Number [facility] * POCT GLUCOSE LAB USE ONLY (01/06/2012 12:06 PM EST) Glucose, POC 160 60 - 199 mg/dL [facility] Comment: Supplemental ranges: <110 mg/dL before meals <200 mg/dL all other times of the day Blood specimen (specimen) 01/06/2012 12:06 PM EST 01/06/2012 12:06 PM EST Andi Rene MD POINT OF CARE TEST O GILDA Performing Organization Address [facility] Phone Number [facility] * Potassium (01/06/2012 9:59 AM EST) Potassium 4.0 3.5 - 5.0 mmol/L [facility] Comment: Please note: ??Patients with WBC [...] Tovar MD CHEMISTRY ORDERABLES Performing Organization Address [facility] de Phone Number [facility] * POCT GLUCOSE LAB USE ONLY (01/06/2012 6:53 AM EST) Glucose, POC 168 60 - 199 mg/dL [facility] Comment: Supplemental ranges: <110 mg/dL before meals <200 mg/dL all other times of the day Blood specimen (specimen) 01/06/2012 6:53 AM EST 01/06/2012 6:53 AM EST Andi S Rene MD POINT OF CARE TEST O RDERAHERNANDEZ Performing Organization Address [facility] Co de Phone Number [facility] * POCT GLUCOSE LAB USE ONLY (01/06/2012 5:03 AM EST) Glucose, POC 147 60 - 199 mg/dL [facility] Comment: Supplemental ranges: <110 mg/dL before meals <200 mg/dL all other times of the day Blood specimen (specimen) 01/06/2012 5:03 AM EST 01/06/2012 5:03 AM EST Andi Rene MD POINT OF CARE TEST O GILDA Performing Organization Address [facility] de Phone Number [facility] * POCT GLUCOSE LAB USE ONLY (01/06/2012 3:16 AM EST) Glucose, POC 126 60 - 199 mg/dL [facility] Comment: Supplemental ranges: <110 mg/dL before meals <200 mg/dL all other times of the day Blood specimen (specimen) 01/06/2012 3:16 AM EST 01/06/2012 3:16 AM EST Andi Rene MD POINT OF CARE TEST O GILDA Performing Organization Address [facility] de Phone Number [facility] * POCT GLUCOSE LAB USE ONLY (01/06/2012 1:12 AM EST) Glucose, POC 135 60 - 199 mg/dL [facility] Comment: Supplemental ranges: <110 mg/dL before meals <200 mg/dL all other times of the day Blood specimen (specimen) 01/06/2012 1:12 AM EST 01/06/2012 1:12 AM EST Andi Rene MD POINT OF CARE TEST O RDERAHERNANDEZ Performing Organization Address [facility]/ZIP Co de Phone Number [facility] * POCT GLUCOSE LAB USE ONLY (01/05/2012 11:52 PM EST) Glucose, POC 133 60 - 199 mg/dL [facility] Comment: Supplemental ranges: <110 mg/dL before meals <200 mg/dL all other times of the day Blood specimen (specimen) 01/05/2012 11:52 PM EST 01/05/2012 11:52 PM EST Andi Rene MD POINT OF CARE TEST O GILDA Performing Organization Address [facility] de Phone Number [facility] * POCT GLUCOSE LAB USE ONLY (01/05/2012 10:54 PM EST) Glucose, POC 130 60 - 199 mg/dL [facility] Comment: Supplemental ranges: <110 mg/dL before meals <200 mg/dL all other times of the day Blood specimen (specimen) 01/05/2012 10:54 PM EST 01/05/2012 10:54 PM EST Andi Rene MD POINT OF CARE TEST O GILDA Performing Organization Address [facility] de Phone Number [facility] * POCT GLUCOSE LAB USE ONLY (01/05/2012 9:51 PM EST) Glucose, POC 132 60 - 199 mg/dL [facility] Comment: Supplemental ranges: <110 mg/dL before meals <200 mg/dL all other times of the day Blood specimen (specimen) 01/05/2012 9:51 PM EST 01/05/2012 9:51 PM EST Andi Rene MD POINT OF CARE TEST O DIMITRIERAHERNANDEZ Performing Organization Address [facility] de Phone Number [facility] * POCT GLUCOSE LAB USE ONLY (01/05/2012 8:50 PM EST) Glucose, POC 126 60 - 199 mg/dL [facility] Comment: Supplemental ranges: <110 mg/dL before meals <200 mg/dL all other times of the day Blood specimen (specimen) 01/05/2012 8:50 PM EST 01/05/2012 8:50 PM EST Andi Rene MD POINT OF CARE TEST O RDTYESHA Performing Organization Address [facility] Co de Phone Number [facility] * POCT GLUCOSE LAB USE ONLY (01/05/2012 8:07 PM EST) Glucose, POC 126 60 - 199 mg/dL [facility] Comment: Supplemental ranges: <110 mg/dL before meals <200 mg/dL all other times of the day Blood specimen (specimen) 01/05/2012 8:07 PM EST 01/05/2012 8:07 PM EST Andi Rene MD POINT OF CARE TEST O GILDA Performing Organization Address [facility] de Phone Number [facility] * POCT GLUCOSE LAB USE ONLY (01/05/2012 6:57 PM EST) Glucose, POC 137 60 - 199 mg/dL [facility] Comment: Supplemental ranges: <110 mg/dL before meals <200 mg/dL all other times of the day Blood specimen (specimen) 01/05/2012 6:57 PM EST 01/05/2012 6:57 PM EST Andi Rene MD POINT OF CARE TEST O GILDA Performing Organization Address [facility] Co de Phone Number [facility] * POCT GLUCOSE LAB USE ONLY (01/05/2012 4:59 PM EST) Glucose, POC 147 60 - 199 mg/dL [facility] Comment: Supplemental ranges: <110 mg/dL before meals <200 mg/dL all other times of the day Blood specimen (specimen) 01/05/2012 4:59 PM EST 01/05/2012 4:59 PM EST Andi Rene MD POINT OF CARE TEST O RDERABLES Performing Organization Address [facility]/ZIP Co de Phone Number [facility] * POCT GLUCOSE LAB USE ONLY (01/05/2012 1:05 PM EST) Glucose, POC 154 60 - 199 mg/dL [facility] Comment: Supplemental ranges: <110 mg/dL before meals <200 mg/dL all other times of the day Blood specimen (specimen) 01/05/2012 1:05 PM EST 01/05/2012 1:05 PM EST Andi Rene MD POINT OF CARE TEST O RDERAHERNANDEZ Performing Organization Address [facility] Co de Phone Number [facility] * POCT GLUCOSE LAB USE ONLY (01/05/2012 12:42 PM EST) Glucose, POC 148 60 - 199 mg/dL [facility] Comment: Supplemental ranges: <110 mg/dL before meals <200 mg/dL all other times of the day Blood specimen (specimen) 01/05/2012 12:42 PM EST 01/05/2012 12:42 PM EST Andi Rene MD POINT OF CARE TEST O GILDA Performing Organization Address [facility] Co de Phone Number [facility] * POCT GLUCOSE LAB USE ONLY (01/05/2012 9:54 AM EST) Glucose, POC 145 60 - 199 mg/dL [facility] Comment: Supplemental ranges: <110 mg/dL before meals <200 mg/dL all other times of the day Blood specimen (specimen) 01/05/2012 9:54 AM EST 01/05/2012 9:54 AM EST Andi Rene MD POINT OF CARE TEST O RDERAHERNANDEZ Performing Organization Address [facility] Co de Phone Number [facility] * POCT GLUCOSE LAB USE ONLY (01/05/2012 8:00 AM EST) Glucose, POC 168 60 - 199 mg/dL [facility] Comment: Supplemental ranges: <110 mg/dL before meals <200 mg/dL all other times of the day Blood specimen (specimen) 01/05/2012 8:00 AM EST 01/05/2012 8:00 AM EST Andi Rene MD POINT OF CARE TEST O RDERAHERNANDEZ Performing Organization Address [facility] de Phone Number [facility] * POCT GLUCOSE LAB USE ONLY (01/05/2012 5:58 AM EST) Glucose, POC 164 60 - 199 mg/dL [facility] Comment: Supplemental ranges: <110 mg/dL before meals <200 mg/dL all other times of the day Blood specimen (specimen) 01/05/2012 5:58 AM EST 01/05/2012 5:58 AM EST Andi Rene MD POINT OF CARE TEST O DIMITRIERAHERNANDEZ Performing Organization Address [facility] de Phone Number [facility] * POCT GLUCOSE LAB USE ONLY (01/05/2012 4:12 AM EST) Glucose, POC 148 60 - 199 mg/dL [facility] Comment: Supplemental ranges: <110 mg/dL before meals <200 mg/dL all other times of the day Blood specimen (specimen) 01/05/2012 4:12 AM EST 01/05/2012 4:12 AM EST Andi Rene MD POINT OF CARE TEST O RDERAHERNANDEZ Performing Organization Address [facility] de Phone Number [facility] * POCT GLUCOSE LAB USE ONLY (01/05/2012 2:05 AM EST) Glucose, POC 148 60 - 199 mg/dL [facility] MILLENNIUM Comment: Supplemental ranges: <110 mg/dL [...] 2:00 AM EST) Troponin-T 0.39(H) <=0.03 ng/mL [facility] Comment: 0.03 ng/mL: Represents the 99th [...] consensus document of the Joint Society of Cardiology/[place] College of Cardiology Committee for the redefinition of myocardial infarction. Journal of the [place] College of [employer]iology 2000; 36: 959-969] Creatine Kinase 436(H) 0 - 200 unit/L [facility] Blood specimen (specimen) 01/05/2012 2:00 AM EST 01/05/2012 2:11 AM EST Narrative Resulting Agency Comment Spec In Lab Sarthak Pollard MD CHEMISTRY ORDERABLES ARIAN NELSON * Potassium (01/05/2012 2:00 AM EST) Pathologist [facility] Potassium 4.4 3.5 - 5.0 mmol/L [facility] Comment: Please note: ??Patients with WBC [...] Pollard MD CHEMISTRY ORDERABLES Performing Organization Address [facility] de Phone Number ARIAN NELSON * (ABNORMAL) Glucose, fasting (01/05/2012 2:00 AM EST) Glucose Fasting 148(H) 65 - 99 mg/dL [facility] Comment: ?Fasting* Glucose Interpretive Criteria Normal [...] of Diabetes Mellitus, Position Statement from the [place] Diabetes Association. ??Diabetes Care, Volume 33, Supplement 1, Nov 2009 Blood specimen (specimen) 01/05/2012 2:00 AM EST 01/05/2012 2:11 AM EST Narrative Resulting Agency Comment Spec In Lab Sarthak Pollard MD CHEMISTRY ORDERABLES Performing Organization Address [facility] Phone Number ARIAN NELSON * Creatinine, serum (01/05/2012 2:00 AM EST) Creatinine 0.86 0.80 - 1.50 mg/dL [facility] Est Glomerular Filtration Rate >60 >=60 [facility] Comment: The National Kidney Disease Education [...] Pollard MD CHEMISTRY ORDERABLES Performing Organization Address [facility] de Phone Number [facility]ER[facility] CAENNI[facility] * BUN (01/05/2012 2:00 AM EST) Blood Urea Nitrogen 10 10 - 20 mg/dL [facility] MILL[facility] Blood specimen (specimen) 01/05/2012 2:00 AM EST 01/05/2012 2:11 AM EST Narrative Resulting Agency Comment Spec In Lab Sarthak Pollard MD CHEMISTRY ORDERABLES Performing Organization Address [facility] de Phone Number [facility]ER[facility]RIAN ROBYENNI[facility] * (ABNORMAL) [...] Platelet Volume 9.7 9.0 - 12.0 fL [facility] Blood specimen (specimen) 01/05/2012 2:00 AM EST 01/05/2012 2:11 AM EST Narrative Resulting Agency Comment Spec In Lab Sarthak Pollard MD HEMATOLOGY ORDERABLE S Performing Organization Address [facility] de Phone Number [facility] * POCT GLUCOSE LAB USE ONLY (01/04/2012 11:58 PM EST) Glucose, POC 136 60 - 199 mg/dL [facility] Comment: Supplemental ranges: <110 mg/dL before meals <200 mg/dL all other times of the day Blood specimen (specimen) 01/04/2012 11:58 PM EST 01/04/2012 11:58 PM EST Andi Rene MD POINT OF CARE TEST O GILDA Performing Organization Address [facility] Co de Phone Number [facility] * POCT GLUCOSE LAB USE ONLY (01/04/2012 9:00 PM EST) Glucose, POC 143 60 - 199 mg/dL [facility] Comment: Supplemental ranges: <110 mg/dL before meals <200 mg/dL all other times of the day Blood specimen (specimen) 01/04/2012 9:00 PM EST 01/04/2012 9:00 PM EST Andi Rene MD POINT OF CARE TEST O RDERABLES Performing Organization Address [facility] de Phone Number [facility] * GLUCOSE, RANDOM (01/04/2012 9:00 PM EST) Glucose 128 60 - 199 mg/dL [facility] Comment:Diabetes: >=200 mg/d L plus symptoms Blood specimen (specimen) 01/04/2012 9:00 PM EST 01/04/2012 9:08 PM EST Narrative Resulting Agency Comment Spec In Lab Sarthak Pollard MD CHEMISTRY ORDERABLES Performing Organization Address [facility] Phone Number [facility] * (ABNORMAL) Hemoglobin (01/04/2012 9:00 PM EST) Hemoglobin 13.6(L) 13.7 - 17.5 gm/dL [facility] Blood specimen (specimen) 01/04/2012 9:00 PM EST 01/04/2012 9:08 PM EST Narrative Resulting Agency Comment Spec In Lab Sarthak Pollard MD HEMATOLOGY ORDERABLE S Performing Organization Address [facility] Phone Number [facility] * Potassium (01/04/2012 9:00 PM EST) Potassium 4.7 3.5 - 5.0 mmol/L [facility] Comment: Please note: ??Patients with WBC [...] Pollard MD CHEMISTRY ORDERABLES Performing Organization Address [facility] de Phone Number [facility] * (ABNORMAL) BLOOD GAS 2 ARTERIAL (01/04/2012 6:47 PM EST) pH, Arterial 7.33(L) [facility] PCO2, Arterial 47(H) mmHg CERNE R MILLENNIUM PO2, Arterial 109(H) mmHg [facility]ERN[facility] MILLENNIUM Bicarbonate, Arterial 24.1 mmol/L [facility]ERN[facility] MILLENNIUM Base Excess, Arterial -1.9 mmol/L [facility] MILLENNIUM Hgb Blood Gas 14.1 gm/dL [facility] Comment: Total Hemoglobin (in gm/dL) ?Based on [facility] Hematology ranges: ?Age ?Reference Range Less than [...] Comment: Total Hemoglobin (in gm/dL) ?Based on [facility] Hematology ranges: ?Age ?Reference Range Less than [...] IMPRESSION: Expected early postoperative findings. Ricky [facility]ERSON [facility] DX ORDERABLES * (ABNORMAL) BLOOD GAS 2 ARTERIAL (01/04/2012 4:30 PM EST) pH, Arterial 7.35(L) CERNER MILLENNIUM PCO2, Arterial 46(H) mmHg CERNE R MILLENNIUM PO2, Arterial 223(H) mmHg CERNER MILLENNIUM Bicarbonate, Arterial 25.1 mmol/L [facility]ERNER MILLENNIUM Base Excess, Arterial -0.4 mmol/L [facility]ERN[facility] MILLENNIUM Hgb Blood Gas Not Perf 13.7 - 17.5 gm/dL [facility] MILLENNI[facility] Comment: Total Hemoglobin (in gm/dL) ?Based on [facility] Hematology ranges: ?Age ?Reference Range Less than [...] TEST O RDERABLES Performing Organization Address [facility]/ZIP Co de Phone Number [facility] MILL[facility] * EKG 12 Lead (01/04/2012 4:26 PM EST) Ventricular rate 72 BPM MUSE SYSTEM Atrial Rate 72 BPM MUSE SYSTEM P-R Interval 174 ms MUSE SYSTEM QRS Duration 96 ms MUSE SYSTEM Q-T Interval 416 ms MUSE SYSTEM QTC Calculated (Bezet) 455 ms MUSE SYSTEM Calculated P Spring 48 degrees MUSE SYSTEM Calculated R Spring 23 degrees MUSE SYSTEM Calculated T Spring 71 degrees MUSE SYSTEM INTERPRETATION Normal sinus rhythm Normal ECG When compared with ECG of 30-DEC-2011 17:24, Vent. rate has decreased BY ??35 BPM Minimal criteria for Inferior infarct are no longer Present Nonspecific T wave abnormality, improved in Anterolateral leads Confirmed by fellow MD Steve, Luca ([id number]) on 01/05/2012 10:22:57 AM Confirmed by MD DELMIS, SARTHAK ([id number]) on 01/05/2012 1:30:02 PM MUSE SYSTEM 01/04/2012 4:26 PM EST 01/05/2012 1:30 PM EST Sarthak Pollard MD ECG ORDERABLES Performing Organization Address [facility] Co de Phone Number MUSE [...] l) mmHg [facility] Comment: Noted by musical instrument maker or repairer. MTF PO2, Arterial 145(H) mmHg CERNER MILLENNIUM Bicarbonate, Arterial 25.5 mmol/L CERNER MILLENNIUM Base Excess, Arterial -0.7 mmol/L [facility]ERN[facility] MILLENNIUM Hgb Blood Gas 11.1(L) gm/dL [facility] MILLENNI[facility] Comment: Total Hemoglobin (in gm/dL) ?Based on [facility] Hematology ranges: ?Age ?Reference Range Less than [...] TEST O RDERABLES Performing Organization Address [facility] de Phone Number [facility] * THROMBIN TIME (01/04/2012 3:28 PM EST) Thrombin Time 17 15 - 20 sec [facility] Blood specimen (specimen) 01/04/2012 3:28 PM EST 01/04/2012 3:28 PM EST Narrative Resulting Agency Comment Spec In Lab Sarthak Pollard MD HEMATOLOGY ORDERABLE S Performing Organization Address [facility] de Phone Number [facility] * FIBRINOGEN (01/04/2012 3:28 PM EST) Fibrinogen 364 200 - 470 mg/dL [facility] Comment:Called by: LEILANI, Read back by: AKANKSHA SAMPSON, Date/Time:01/04/12 15:45. Blood specimen (specimen) 01/04/2012 3:28 PM EST 01/04/2012 3:28 PM EST Narrative Resulting Agency Comment Spec In Lab Sarthak Pollard MD HEMATOLOGY ORDERABLE S Performing Organization Address [facility] Phone Number [facility] * APTT (01/04/2012 3:28 PM EST) Partial Thromboplastin Time 30 25 - 35 sec [facility] Comment: Recommended therapeutic PTT range for full dose unfractionated heparin is 80-114 seconds. Blood specimen (specimen) 01/04/2012 3:28 PM EST 01/04/2012 3:28 PM EST Narrative Resulting Agency Comment Spec In Lab Sarthak Pollard MD HEMATOLOGY ORDERABLE S Performing Organization Address [facility] de Phone Number [facility] * (ABNORMAL) PROTHROMBIN TIME (01/04/2012 3:28 PM EST) Prothrombin Time 17.8(H) 11.9 - 14.7 sec [facility] Comment: [facility] Transfusion Committee Guidelines: INR less [...] l) mmHg [facility]NI[facility] Comment: Noted by musical instrument maker or repairer. MTF PO2, Arterial 296(H) mmHg [facility]ERN[facility] MILLENNIUM Bicarbonate, Arterial 26.3(H) mmol/L [facility] MILLENNI[facility] Base Excess, Arterial 0.1 mmol/L [facility] MILLENNIUM Hgb Blood Gas 10.2(L) gm/dL [facility] Comment: Total Hemoglobin (in gm/dL) ?Based on [facility] Hematology ranges: ?Age ?Reference Range Less than [...] TEST O RDERABLES Performing Organization Address [facility] Phone Number [facility] * FIBRINOGEN (01/04/2012 2:25 PM EST) Fibrinogen 356 200 - 470 mg/dL [facility] Comment:Called by: [facility], Read back by: AKANKSHA SAMPSON, Date/Time:01/04/12 14:49. Blood specimen (specimen) 01/04/2012 2:25 PM EST 01/04/2012 2:32 PM EST Narrative Resulting Agency Comment Spec In Lab Sarthak Pollard MD HEMATOLOGY ORDERABLE S Performing Organization Address [facility] de Phone Number [facility] * PLATELET COUNT (01/04/2012 2:25 PM EST) Platelet 281 145 - 370 x10(3)/mcL [facility] Blood specimen (specimen) 01/04/2012 2:25 PM EST 01/04/2012 2:32 PM EST Narrative Resulting Agency Comment Spec In Lab Sarthak Pollard MD HEMATOLOGY ORDERABLE S Performing Organization Address [facility]/ZIP Co de Phone Number [facility] * (ABNORMAL) BLOOD GAS 2 ARTERIAL (01/04/2012 12:59 PM EST) [facility] Signature pH, Arterial 7.36 CERNER MILLENNIUM PCO2, Arterial 48(H) mmHg CERNE R MILLENNIUM PO2, Arterial 197(H) mmHg [facility]ERN[facility] MILLENNIUM Bicarbonate, Arterial 26.7(H) mmol/L CERNER MILLENNIUM Base Excess, Arterial 1.3 mmol/L CERNER MILLENNIUM Hgb Blood Gas 13.9 gm/dL CERNER MILLENNIUM Comment: Total Hemoglobin (in gm/dL) ?Based on [facility] Hematology ranges: ?Age ?Reference Range Less than [...] CARE TEST O RDERAHERNANDEZ Performing Organization Address [facility] Co de Phone Number [facility] * Prepare Coag Factors (Non-Hemophilia) (01/04/2012 12:05 PM EST) Dispensed? Yes ARIAN CERDAIUM Blood specimen (specimen) 01/04/2012 12:05 PM EST 01/04/2012 12:01 PM EST Narrative Resulting Agency Comment Spec In Lab Inna Tovar MD BLOOD BANK PRODUCT O RDERAHERNANDEZ Performing Organization Address [facility] Co de Phone Number ARIAN CERDAIUM * Prepare RBC (01/04/2012 12:05 PM EST) Dispensed? Yes ARIAN CERDAIUM Blood specimen (specimen) 01/04/2012 12:05 PM EST 01/04/2012 12:01 PM EST Narrative Resulting Agency Comment Spec In Lab Inna Tvoar MD BLOOD BANK PRODUCT O RDERABLES Performing Organization Address [facility]/ZIP Co de Phone Number [facility] * (ABNORMAL) DIFFERENTIAL, MANUAL (01/04/2012 4:40 [...] 0.0 - 0.2 x10(3)/mc L CERNER MILLENNIUM [place] Absolute Manual 0.3(H) 0.0 - 0.0 x10(3)/mc [...] BMP w/fasting Glucose (01/04/2012 4:40 AM EST) [facility] Glucose Fasting 113(H) 65 - 99 [...] of Diabetes Mellitus, Position Statement from the [place] Diabetes Association. ??Diabetes Care, Volume 33, Supplement [...] MD HEMATOLOGY ORDERABLE S Performing Organization Address [facility] Co de Phone Number [facility] MILLENNIUM * (ABNORMAL) APTT (01/04/2012 4:40 AM EST) Partial Thromboplastin Time 103(H) 25 - 35 sec [facility] MILLENNIUM Comment: Recommended therapeutic PTT range for full dose unfractionated heparin is 80-114 seconds. Blood specimen (specimen) 01/04/2012 4:40 AM EST 01/04/2012 4:52 AM EST Narrative Resulting Agency Comment Spec In Lab Sarthak Pollard MD HEMATOLOGY ORDERABLE S Performing Organization Address [facility] de Phone Number [facility] * (ABNORMAL) APTT (01/03/2012 7:38 PM EST) Partial Thromboplastin Time 98(H) 25 - 35 sec [facility] MILLENNIUM Comment: Recommended therapeutic PTT range for full dose unfractionated heparin is 80-114 seconds. Blood specimen (specimen) 01/03/2012 7:38 PM EST 01/03/2012 7:53 PM EST Narrative Resulting Agency Comment Spec In Lab Sarthak Pollard MD HEMATOLOGY ORDERABLE S Performing Organization Address [facility] Co de Phone Number [facility] MILLBAN[facility] * (ABNORMAL) APTT (01/03/2012 12:17 PM EST) Partial Thromboplastin Time 101(H) 25 - 35 sec [facility] MILL[facility]UM Comment: Recommended therapeutic PTT range [...] AM EST) Ab Screen Interp Negative [facility]ER MILLBAN[facility] Expires at [id number] on: [id number] [facility]ERNER MILLBANNER [facility]ENTER[facility]UM Blood specimen (specimen) 01/03/2012 6:15 AM EST 01/03/2012 6:35 AM EST Narrative Resulting Agency Comment Spec In Lab Sarthak Pollard MD BLOOD BANK LAB ORDER RANDELL Performing Organization Address [facility]/ZIP Co de Phone Number [facility] * ABO/RH TYPING (01/03/2012 6:15 AM EST) ABORH Type A Pos [facility] Blood specimen (specimen) 01/03/2012 6:15 AM EST 01/03/2012 6:35 AM EST Narrative Resulting Agency Comment Spec In Lab Sarthak Pollard MD BLOOD BANK LAB ORDER RANDELL Performing Organization Address [facility] Co de Phone Number [facility] * (ABNORMAL) APTT (01/03/2012 6:15 AM EST) Partial Thromboplastin Time 96(H) 25 - 35 sec [facility] Comment: Recommended therapeutic PTT range for full dose unfractionated heparin is 80-114 seconds. Blood specimen (specimen) 01/03/2012 6:15 AM EST 01/03/2012 6:23 AM EST Narrative Resulting Agency Comment Spec In Lab Sarthak Pollard MD HEMATOLOGY ORDERABLE S Performing Organization Address [facility] Co de Phone Number [facility] * (ABNORMAL) BMP w/fasting Glucose (01/03/2012 6:15 AM EST) Glucose Fasting 116(H) 65 - 99 mg/dL [facility] Comment: ?Fasting* Glucose Interpretive Criteria Normal [...] of Diabetes Mellitus, Position Statement from the [place] Diabetes Association. ??Diabetes Care, Volume 33, Supplement [...] Thromboplastin Time 69(H) 25 - 35 sec [facility] Comment: Recommended therapeutic PTT range for full dose unfractionated heparin is 80-114 seconds. Blood specimen (specimen) 01/02/2012 11:21 PM EST 01/02/2012 11:24 PM EST Narrative Resulting Agency Comment Spec In Lab Sarthak Pollard MD HEMATOLOGY ORDERABLE S Performing Organization Address [facility] Co de Phone Number [facility] * (ABNORMAL) APTT (01/02/2012 5:32 PM EST) Partial Thromboplastin Time 53(H) 25 - 35 sec [facility] Comment: Recommended therapeutic PTT range for full dose unfractionated heparin is 80-114 seconds. Blood specimen (specimen) 01/02/2012 5:32 PM EST 01/02/2012 5:38 PM EST Narrative Resulting Agency Comment Spec In Lab Sarthak Pollard MD HEMATOLOGY ORDERABLE S Performing Organization Address [facility] de Phone Number [facility] * (ABNORMAL) APTT (01/02/2012 11:56 AM EST) Partial Thromboplastin Time 46(H) 25 - 35 sec [facility] Comment: Recommended therapeutic PTT range for full dose unfractionated heparin is 80-114 seconds. Blood specimen (specimen) 01/02/2012 11:56 AM EST 01/02/2012 12:05 PM EST Narrative Resulting Agency Comment Spec In Lab Sarthak Pollard MD HEMATOLOGY ORDERABLE S Performing Organization Address [facility] Co de Phone Number [facility] * (ABNORMAL) DIFFERENTIAL, AUTOMATED (01/02/2012 6:02 AM EST) Neutrophil % 64.4 34.0 - 71.0 % [facility] Neutrophil Absolute 6.49(H) 1.50 - 6.30 [...] of Diabetes Mellitus, Position Statement from the [place] Diabetes Association. ??Diabetes Care, Volume 33, Supplement [...] In Lab Andi Rene MD CHEMISTRY ORDERABLES [facility] * (ABNORMAL) CBC (with Diff) [...] HEMATOLOGY ORDERABLE S Performing Organization Address City/[facility]/ZIP Co de Phone Number CERNER MILLENNIUM [...] HEMATOLOGY ORDERABLE S Performing Organization Address City/[facility]/ZIP Co de Phone Number CERBRIAN CAENNIUM [...] EST Sarthak Pollard MD HEMATOLOGY ORDERABLE S [facility] MILL[facility] * (ABNORMAL) CBC (with Diff) (01/01/2012 [...] of variation 12.9 10.9 - 14.4 % [facility] Mean Platelet Volume 10.1 9.0 - 12.0 fL [facility] Blood specimen (specimen) 01/01/2012 6:37 PM EST 01/01/2012 6:43 PM EST Narrative Resulting Agency Comment Spec In Lab Sarthak Pollard MD HEMATOLOGY ORDERABLE S Performing Organization Address [facility] Phone Number [facility] * APTT (01/01/2012 6:37 PM EST) Partial Thromboplastin Time 32 25 - 35 sec [facility] Comment: Recommended therapeutic PTT range for full dose unfractionated heparin is 80-114 seconds. Blood specimen (specimen) 01/01/2012 6:37 PM EST 01/01/2012 6:43 PM EST Narrative Resulting Agency Comment Spec In Lab Sarthak Pollard MD HEMATOLOGY ORDERABLE S Performing Organization Address [facility] Phone Number [facility] * POCT GLUCOSE LAB USE ONLY (01/01/2012 12:02 PM EST) Glucose, POC 99 60 - 199 mg/dL [facility] Comment: Supplemental ranges: <110 mg/dL before meals <200 mg/dL all other times of the day Blood specimen (specimen) 01/01/2012 12:02 PM EST 01/01/2012 12:02 PM EST Andi Rene MD POINT OF CARE TEST O RDERABLES Performing Organization Address [facility] de Phone Number [facility] * (ABNORMAL) APTT (01/01/2012 11:59 AM EST) Partial Thromboplastin Time 108(H) 25 - 35 sec [facility] Comment: Recommended therapeutic PTT range for [...] Absolute 0.0 0.0 - 0.2 x10(3)/mc L [facility] Immature Gran % 0.50 0.00 - 0.66 % [facility] Comment: Immature granulocytes(IG's)percentage and absolute count will include metamyelocytes, myelocytes, and promyelocytes. Blood smears from CBCs yielding IG's will be scanned manually for concordance. If this scan disagrees with the automated IG or if promyelocytes are noted, a manual differential will be performed. Immature Gran Absolute 0.07(H) 0.00 - 0.05 x10(3)/mc L [facility] Blood specimen (specimen) 01/01/2012 5:19 AM EST 01/01/2012 5:36 AM EST Remigio Ceron MD HEMATOLOGY ORDERABLE S [facility] * (ABNORMAL) APTT (01/01/2012 5:19 AM EST) Partial Thromboplastin Time 105(H) 25 - 35 sec [facility] Comment: Recommended therapeutic PTT range for full dose unfractionated heparin is 80-114 seconds. Blood specimen (specimen) 01/01/2012 5:19 AM EST 01/01/2012 5:36 AM EST Narrative Resulting Agency Comment Spec In Lab Remigio Ceron MD HEMATOLOGY ORDERABLE S [facility] * (ABNORMAL) BMP w/fasting Glucose (01/01/2012 5:19 AM EST) Glucose Fasting 121(H) 65 - 99 mg/dL [facility] Comment: ?Fasting* Glucose Interpretive Criteria Normal [...] of Diabetes Mellitus, Position Statement from the [place] Diabetes Association. ??Diabetes Care, Volume 33, Supplement [...] Lab Remigio Ceron MD HEMATOLOGY ORDERABLE S [facility] * (ABNORMAL) APTT (12/31/2011 11:01 PM EST) Partial Thromboplastin Time 72(H) 25 - 35 sec [facility] Comment: Recommended therapeutic PTT range for full dose unfractionated heparin is 80-114 seconds. Blood specimen (specimen) 12/31/2011 11:01 PM EST 12/31/2011 11:18 PM EST Narrative Resulting Agency Comment Spec In Lab Andi Rene MD HEMATOLOGY ORDERABLE S Performing Organization Address [facility] de Phone Number [facility] * Upper Respiratory Culture Throat (12/31/2011 9:55 PM EST) Upper Respiratory Culture ? Patient Name: ZACK HEART, GEOVANNA Llanos ? Ordered By: ANDI RENE ? MR#: [id number] ?LOC: ??[facility] ? /Sex: ??1975 (36 years), ? Male ? PROCEDURE: Upper Respiratory Culture ?SOURCE: Throat ? COLLECTED: 12/31/2011 21:55 ? STARTED: 12/31/2011 22:16 ? FINAL REPORT ? Final Report ? Verified:2011 08:12 ? Beta Hemolytic Streptococci, Group A isolated ? PRELIMINARY REPORT ? Preliminary Report ? Verified:2011 09:46 ? Beta Hemolytic Streptococci, Group A isolated ? [facility] Specimen from throat (specimen) 12/31/2011 9:55 PM EST 12/31/2011 10:16 PM EST Narrative Resulting Agency Comment Spec In Lab Andi Rene MD MICROBIOLOGY - GENER AL ORDERABLES Performing Organization Address [facility] de Phone Number [facility] * (ABNORMAL) APTT (12/31/2011 4:34 PM EST) Partial Thromboplastin Time 66(H) 25 - 35 sec [facility] Comment: Recommended therapeutic PTT range for full dose unfractionated heparin is 80-114 seconds. Blood specimen (specimen) 12/31/2011 4:34 PM EST 12/31/2011 4:39 PM EST Narrative Resulting Agency Comment Spec In Lab Andi Rene MD HEMATOLOGY ORDERABLE S Performing Organization Address [facility] Phone Number [facility] * Duplex Study for DVT, Bilat legs (12/31/2011 11:07 AM EST) Pathologist [facility] VB Text Report Department: Vascular Surgery Lab Patient: [id number] (GEOVANNA DIXON) CPT Code: 93541 ICD-9: 780.6 Referring Physician: ANDI RENE Indication: [...] EST) Smear Review Report ? [facility] ? Provider: ?? ANDI RENE ?Pt. Name: ?? ZACK REYNA, GEOVANNA Llanos ? Acc #: ?[id number] ? Pt. ? Col Date: ?? 12/31/2011 [...] of variation 13.1 10.9 - 14.4 % [facility] Mean Platelet Volume 10.4 9.0 - 12.0 fL [facility] Blood specimen (specimen) 12/31/2011 9:44 AM EST 12/31/2011 10:12 AM EST Narrative Resulting Agency Comment Spec In Lab Andi Rene MD HEMATOLOGY ORDERABLE S Performing Organization Address [facility] de Phone Number [facility] * Lactate Dehydrogenase (12/31/2011 9:44 AM EST) Lactate Dehydrogenase 123 110 - 220 unit/L [facility] Blood specimen (specimen) 12/31/2011 9:44 AM EST 12/31/2011 10:12 AM EST Narrative Resulting Agency Comment Spec In Lab Andi Rene MD CHEMISTRY ORDERABLES Performing Organization Address [facility] Phone Number [facility] * Peripheral Smear Review (12/31/2011 9:44 AM EST) Peripheral Smear Review See Comment [facility] Comment: When completed by the Pathologist, report [id number] will display under Hematology Reports. Blood specimen (specimen) 12/31/2011 9:44 AM EST 12/31/2011 10:12 AM EST Narrative Resulting Agency Comment Spec In Lab Andi Rene MD HEMATOLOGY ORDERABLE S Performing Organization Address [facility] de Phone Number [facility] * (ABNORMAL) APTT (12/31/2011 9:44 AM EST) Partial Thromboplastin Time 50(H) 25 - 35 sec [facility] Comment: Recommended therapeutic PTT range for [...] of Diabetes Mellitus, Position Statement from the [place] Diabetes Association. ??Diabetes Care, Volume 33, Supplement [...] Platelet Volume 10.3 9.0 - 12.0 fL [facility] MILL[facility] Blood specimen (specimen) 12/31/2011 3:38 AM EST 12/31/2011 3:50 AM EST Narrative Resulting Agency Comment Spec In Lab Remigio Ceron MD HEMATOLOGY ORDERABLE S Performing Organization Address City/[facility]/ZIP Co de Phone Number ARIAN NELSON * (ABNORMAL) APTT (12/30/2011 9:02 PM EST) Partial Thromboplastin Time 37(H) 25 - 35 sec [facility] ROBYENNIUM Comment: Recommended therapeutic PTT range for full dose unfractionated heparin is 80-114 seconds. Blood specimen (specimen) 12/30/2011 9:02 PM EST 12/30/2011 9:10 PM EST Narrative Resulting Agency Comment Spec In Lab Andi Rene MD HEMATOLOGY ORDERABLE S [facility] * EKG 12 Lead (12/30/2011 5:24 PM EST) Ventricular rate 107 BPM MUSE SYSTEM Atrial Rate 107 BPM MUSE SYSTEM P-R Interval 160 ms MUSE SYSTEM QRS Duration 104 ms MUSE SYSTEM Q-T Interval 310 ms MUSE SYSTEM QTC Calculated (Bezet) 413 ms MUSE SYSTEM Calculated P Spring 24 degrees MUSE SYSTEM Calculated R Spring 25 degrees MUSE SYSTEM Calculated T Spring 54 degrees MUSE SYSTEM INTERPRETATION Sinus tachycardia [...] REYNA ?Ordered By: ANDI RENE ? MR#: [id number] ?LOC: [facility] ? /Sex: ??1975 (36 years), [...] Llanos ?Ordered By: ANDI RENE ? MR#: [id number] ?LOC: ??[facility] ? /Sex: ??1975 (36 years), [...] HEMATOLOGY ORDERABLE S Performing Organization Address City/[facility]/ZIP Co de Phone Number [facility] * ANTIBODY SCREEN (12/30/2011 4:25 PM EST) Ab Screen Interp Negative [facility] Expires at [id number] on: [id number] [facility] Blood specimen (specimen) 12/30/2011 4:25 PM EST 12/30/2011 4:36 PM EST Narrative Resulting Agency Comment Spec In Lab Andi Rene MD BLOOD BANK LAB ORDER RANDELL Performing Organization Address [facility] Co de Phone Number [facility] * ABO/RH TYPING (12/30/2011 4:25 PM EST) Pathologist [facility] ABORH Type A Pos [facility] Blood specimen (specimen) 12/30/2011 4:25 PM EST 12/30/2011 4:36 PM EST Narrative Resulting Agency Comment Spec In Lab Andi Rene MD BLOOD BANK LAB ORDER RANDELL Performing Organization Address [facility] Co de Phone Number [facility] * Glucose, random (12/30/2011 4:25 PM EST) Pathologist [facility] Glucose 126 60 - 199 mg/dL [facility] Comment:Diabetes: >=200 mg/d L plus symptoms Blood specimen (specimen) 12/30/2011 4:25 PM EST 12/30/2011 4:43 PM EST Narrative Resulting Agency Comment Spec In Lab Andi Rene MD CHEMISTRY ORDERABLES Performing Organization Address [facility] Co de Phone Number [facility] * (ABNORMAL) CBC (with Diff) (12/30/2011 4:25 PM EST) Pathologist [facility] White Blood Cell 18.8(H) 4.0 - 10.0 x10(3)/mc L [facility] Red Blood Cell 4.47(L) 4.63 - 6.08 x10(6)/mc L [facility] Hemoglobin 13.7 13.7 - 17.5 gm/dL [facility] Hematocrit 39.7(L) 40.0 - 51.0 % [facility] Mean Cell Volume 88.8 79.0 - 92.0 fL [facility] Mean Cell Hemoglobin 30.6 25.6 - 32.2 pg [facility] Mean Cell Hemoglobin Concentration 34.5 32.0 - 36.5 gm/dL [facility] Platelet 223 145 - 370 x10(3)/mc L [facility] RDW Standard Deviation 42.6 35.0 - 46.0 fL [facility] RDW coefficient of variation 13.2 10.9 - 14.4 % [facility] Mean Platelet Volume 10.5 9.0 - 12.0 fL [facility] Blood specimen (specimen) 12/30/2011 4:25 PM EST 12/30/2011 4:43 PM EST Narrative Resulting Agency Comment Spec In Lab Andi Rene MD HEMATOLOGY ORDERABLE S Performing Organization Address [facility] de Phone Number [facility] * APTT (12/30/2011 2:08 PM EST) Partial Thromboplastin Time 31 25 - 35 sec [facility] Comment: Recommended therapeutic PTT range for full dose unfractionated heparin is 80-114 seconds. Blood specimen (specimen) 12/30/2011 2:08 PM EST 12/30/2011 2:27 PM EST Narrative Resulting Agency Comment Spec In Lab Andi Rene MD HEMATOLOGY ORDERABLE S Performing Organization Address [facility] Co de Phone Number [facility] * Cardiac Enzymes (12/30/2011 2:08 PM EST) Troponin-T 0.03 <=0.03 ng/mL [facility] Comment: 0.03 ng/mL: Represents the 99th [...] consensus document of the Joint Society of Cardiology/[place] College [employer]iology Committee for the redefinition of myocardial infarction. Journal of the [place] College of [employer]iology 2000; 36: 959-969] Creatine Kinase 72 0 - 200 unit/L [facility] CERDAIUM Blood specimen (specimen) 12/30/2011 2:08 PM EST 12/30/2011 2:27 PM EST Narrative Resulting Agency Comment Spec In Lab Remigio Ceron MD CHEMISTRY ORDERABLES Performing Organization Address [facility] Co de Phone Number [facility] * HIV (12/30/2011 10:18 AM EST) HIV 1/2 Ab Negative [facility] CERDAIUM Blood specimen (specimen) 12/30/2011 10:18 AM EST 12/30/2011 10:28 AM EST Narrative Resulting Agency Comment Spec In Lab Andi Rene MD CHEMISTRY ORDERABLES Performing Organization Address [facility] Co de Phone Number [facility] * Echo Transthoracic (Complete) (12/30/2011 9:47 AM EST) EF 55 [facility] Anatomical Region Laterality Modality Other 12/30/2011 Narrative 12/30/2011 10:02 AM EST Procedure: ? Transthoracic Echocardiogram Patient: ? ZACK AUSTIN P ?(Age): 1975(36) Med Rec#: ?[id number] ? Sex: ?M ? Site Loc: ?[facility] ? Ht / Wt: ??180(cm)/124(kg) Pt. Loc: ? Adult Floor ?BSA: ?2.41 Study Date: ?12/30/2011 ? Pt. Type: Inpatient Tape: ? Referring: Remigio Ceron Respiratory Services Manager: Benjamin Lundberg Diagnosis: ??Chest pain (786.50) CPT Code(s): ??Spectral Doppler (98097), ??Color Doppler (77202), ??Echo Full (67884), Indication(s): ??Chest Pain Rhythm: HR ?BP ?106/60 [...] Images reviewed and interpretation verified [facility] Cardiac Ultrasound Laboratory Procedure Note Zak Coley MD - 12/30/2011 Procedure: Transthoracic Echocardiogram Patient: ZACK MILLIGAN(Age): 1975(36) Med Rec#: [id number] Sex: M Site Loc: [facility] Ht / Wt: 180(cm)/124(kg) Pt. Loc: Adult Floor BSA: 2.41 Study Date: 12/30/2011 Pt. Type: Inpatient Tape: Referring: Remigio Ceron Respiratory Services Manager: Benjamin Lundberg Diagnosis: Chest pain (786.50) CPT Code(s): Spectral Doppler (89708), Color Doppler (27842), Echo Full (62761), Indication(s): Chest Pain Rhythm: HR BP 106/60 [...] Images reviewed and interpretation verified [facility] Cardiac [facility]ound [facility] Remigio Ceron MD [...] Urine Dipstick Clear Clear CERNER MILLENNIUM Specific [place] Urine Automated 1.019 1.002 - 1.030 CERNER [...] In Lab Andi Rene MD URINE ORDERABLES [facility] * Rapid Qual Drug Screen, Urine ([facility]) (12/30/2011 9:32 AM EST) Pathologist [facility] [...] testing device is being used in the [facility] Chemistry Laboratory. Please contact the chemistry laboratory at [phone] with questions. Urine specimen (specimen) 12/30/2011 9:32 AM EST 12/30/2011 9:45 AM EST Narrative Resulting Agency Comment Spec In Lab Andi Rene MD URINE ORDERABLES Performing Organization Address City/State/[facility] Phone Number [facility] * Urine culture Clean Catch Urine (12/30/2011 9:31 AM EST) Urine Culture ? Patient Name: GEOVANNA DIXON JR Viet ?Ordered By: ANDI RENE ? MR#: [id number] ?LOC: ??[facility] ? /Sex: ?? 4 (36 [...] EST Remigio Ceron MD HEMATOLOGY ORDERABLE S [facility] MILL[facility] * (ABNORMAL) CBC (with Diff) [...] Platelet Volume 10.6 9.0 - 12.0 fL [facility] Blood specimen (specimen) 12/30/2011 7:07 AM EST 12/30/2011 7:18 AM EST Narrative Resulting Agency Comment Spec In Lab Remigio Ceron MD HEMATOLOGY ORDERABLE S [facility] * Hemoglobin A1c (12/30/2011 7:07 AM EST) Hemoglobin A1c 6.1 4.3 - 6.1 % [facility] Estimated Average Glucose 128 mg/dL [facility] Comment: eAG equivalents for HbA1c [...] into estimated average glucose values. ??Diabetes Care 2008:31(8):2339-2793. Blood specimen (specimen) 12/30/2011 7:07 AM EST 12/30/2011 7:18 AM EST Narrative Resulting Agency Comment Spec In Lab Remigio Ceron MD CHEMISTRY ORDERABLES Performing Organization Address [facility] Phone Number [facility] * (ABNORMAL) APTT (12/30/2011 5:45 AM EST) Partial Thromboplastin Time 45(H) 25 - 35 sec [facility] Comment: Recommended therapeutic PTT range for full dose unfractionated heparin is 80-114 seconds. Blood specimen (specimen) 12/30/2011 5:45 AM EST 12/30/2011 6:10 AM EST Narrative Resulting Agency Comment Spec In Lab Andi Rene MD HEMATOLOGY ORDERABLE S Performing Organization Address [facility] Phone Number [facility] * (ABNORMAL) Glucose, fasting (12/30/2011 5:45 AM EST) Glucose Fasting 108(H) 65 - 99 mg/dL [facility] Comment: ?Fasting* Glucose Interpretive Criteria Normal [...] of Diabetes Mellitus, Position Statement from the [place] Diabetes Association. ??Diabetes Care, Volume 33, Supplement 1, Nov 2009 Blood specimen (specimen) 12/30/2011 5:45 AM EST 12/30/2011 6:10 AM EST Narrative Resulting Agency Comment Spec In Lab Remigio Ceron MD CHEMISTRY ORDERABLES Performing Organization Address [facility] Phone Number [facility] * (ABNORMAL) Triglyceride (12/30/2011 5:45 AM EST) Triglyceride 245(H) <=149 mg/dL [facility] Comment: Reference Range: Normal triglycerides: ??<150 mg/dL Borderline high: ??150-199 mg/dL High: ??200-499 mg/dL Very high: ??>dg=275 mg/dL ELISEO 2001; 285(19):5823-8098 Blood specimen (specimen) 12/30/2011 5:45 AM EST 12/30/2011 6:10 AM EST Narrative Resulting Agency Comment Spec In Lab Remigio Ceron MD CHEMISTRY ORDERABLES [facility] * (ABNORMAL) HDL/Cholesterol Profile (12/30/2011 5:45 AM EST) Cholesterol, Total 170 <=199 mg/dL [facility] Comment: Recommendations of the NCEP Adult Treatment Panel for the following risk cutoff thresholds for the [place] population: Desirable: <200 mg/dL Borderline High: 200-239 mg/dL High: > or = 240 mg/dL HDL Cholesterol 36(L) >=40 mg/dL [facility] Comment: Reference range: ??Low HDL: ?? < 40 mg/dL ??Normal: ?40-60 mg/dL ??Desirable: > 60 mg/dL ELISEO 2001; 285(19):8932-7548 Cholesterol/HDL Ratio 4.7 ratio [facility] Comment: A Cholesterol to HDL ratio below 4:1 is desirable. ??Studies suggest that increased CAD risk occurs at ratios above 5 for females and above 6 for men. ? [place] Heart Association ??(http://www.americanheart.org) ? Jazmine Int Med, 1994; 121:641 ? AM J Med, 1998; 105(1A):48S Blood specimen (specimen) 12/30/2011 5:45 AM EST 12/30/2011 6:10 AM EST Narrative Resulting Agency Comment Spec In Lab Remigio Ceron MD CHEMISTRY ORDERABLES Performing Organization Address [facility] de Phone Number [facility] * (ABNORMAL) LDL Cholesterol, Direct (12/30/2011 5:45 AM EST) Pathologist [facility] LDL Cholesterol, Direct 110(H) <=99 mg/dL [facility] Comment: The National Cholesterol Education Program (NCEP) has set the following guidelines for LDL Cholesterol: Reference range: ?? Optimal: ?<100 mg/dL ?? Near Optimal/Above Optimal: ?? 100-129 mg/dL ?? Borderline high: ?130-159 mg/dL ?? High: ? 160-189 mg/dL ?? Very high: ?>tp=566 mg/dL ELISEO 2001: 285(19):9659-2368 Blood specimen (specimen) 12/30/2011 5:45 AM EST 12/30/2011 6:10 AM EST Narrative Resulting Agency Comment Spec In Lab Remigio Ceron MD CHEMISTRY ORDERABLES Performing Organization Address [facility] de Phone Number [facility] * (ABNORMAL) Cardiac Enzymes (12/30/2011 5:45 AM EST) [facility] Troponin-T 0.05(H) <=0.03 ng/mL [facility] Comment: 0.03 ng/mL: Represents the 99th [...] consensus document of the Joint Society of Cardiology/[place] College of Cardiology Committee for the redefinition of myocardial infarction. Journal of the [place] College of Cardiology 2000; 36: 959-969] Creatine [...] MD HEMATOLOGY ORDERABLE S Performing Organization Address [facility] Co de Phone Number [facility] * (ABNORMAL) Cardiac Enzymes (12/29/2011 11:29 PM EST) Troponin-T 0.08(H) <=0.03 ng/mL [facility] Comment: 0.03 ng/mL: Represents the 99th percentile [...] consensus document of the Joint Society of Cardiology/[place] College of Cardiology Committee for the redefinition of myocardial infarction. Journal of the [place] College of Cardiology 2000; 36: 959-969] Creatine Kinase 86 0 - 200 unit/L [facility] [employer] Blood specimen (specimen) 12/29/2011 11:29 PM EST 12/29/2011 11:34 PM EST Narrative Resulting Agency Comment Spec In Lab Remigio Ceron MD CHEMISTRY ORDERABLES Performing Organization Address [facility] Co de Phone Number [facility] * Prothrombin Time (12/29/2011 11:29 PM EST) Prothrombin Time 13.2 11.9 - 14.7 sec [facility] Comment: [facility] Transfusion Committee Guidelines: INR less [...] Lab Remigio Ceron MD HEMATOLOGY ORDERABLE S [facility] * Hepatic Function Panel (12/29/2011 11:29 [...] Ceron MD CHEMISTRY ORDERABLES Performing Organization Address [facility] Co de Phone Number [facility] * pro-Brain Natriuretic Peptide (12/29/2011 11:29 PM EST) NT-proBNP 114 <=125 pg/mL [facility] Blood specimen (specimen) 12/29/2011 11:29 PM EST 12/29/2011 11:34 PM EST Narrative Resulting Agency Comment Spec In Lab Remigio Ceron MD CHEMISTRY ORDERABLES [facility] * TSH (12/29/2011 11:29 PM EST) Thyroid Stimulating Hormone 0.39 0.27 - 4.20 mcIU/mL [facility] Blood specimen (specimen) 12/29/2011 11:29 PM EST 12/29/2011 11:34 PM EST Narrative Resulting Agency Comment Spec In Lab Remigio Ceron MD CHEMISTRY ORDERABLES Performing Organization Address [facility] Phone Number [facility] * Phosphorus (12/29/2011 11:29 PM EST) Phosphorus 3.1 2.5 - 4.5 mg/dL [facility] Blood specimen (specimen) 12/29/2011 11:29 PM EST 12/29/2011 11:34 PM EST Narrative Resulting Agency Comment Spec In Lab Remigio Ceron MD CHEMISTRY ORDERABLES Performing Organization Address [facility] Phone Number [facility] * Magnesium (12/29/2011 11:29 PM EST) Magnesium 0.83 0.69 - 1.07 mmol/L [facility] MILL[facility] Blood specimen (specimen) 12/29/2011 11:29 PM EST 12/29/2011 11:34 PM EST Narrative Resulting Agency Comment Spec In Lab Remigio Ceron MD CHEMISTRY ORDERABLES Performing Organization Address [facility] de Phone Number [facility] * (ABNORMAL) [...] Cell 18.5(H) 4.0 - 10.0 x10(3)/mc L [facility] Red Blood Cell 4.50(L) 4.63 - 6.08 x10(6)/mc L [facility] Hemoglobin 13.9 13.7 - 17.5 gm/dL [facility] Hematocrit 39.6(L) 40.0 - 51.0 % [facility] MILLEN[facility] Mean Cell Volume 88.0 79.0 - 92.0 fL [facility] MILL[facility] Mean Cell Hemoglobin 30.9 25.6 - 32.2 pg [facility]ILL[facility] Mean Cell Hemoglobin Concentration 35.1 32.0 - 36.5 gm/dL [facility] Platelet 221 145 - 370 x10(3)/mc L [facility] RDW Standard Deviation 42.0 35.0 - 46.0 fL [facility] MILLEN[facility] RDW coefficient of variation 13.0 10.9 - 14.4 % [facility] MILLEN[facility] Mean Platelet Volume 10.5 9.0 - 12.0 fL [facility] Blood specimen (specimen) 12/29/2011 11:29 PM EST 12/29/2011 11:34 PM EST Narrative Resulting Agency Comment Spec In Lab Remigio Ceron MD HEMATOLOGY ORDERABLE S Performing Organization Address [facility] de Phone Number [facility] * APTT (12/29/2011 11:29 PM EST) Partial Thromboplastin Time 34 25 - 35 sec [facility] Comment: Recommended therapeutic PTT range for full dose unfractionated heparin is 80-114 seconds. Blood specimen (specimen) 12/29/2011 11:29 PM EST 12/29/2011 11:34 PM EST Narrative Resulting Agency Comment Spec In Lab Remigio Ceron MD HEMATOLOGY ORDERABLE S Performing Organization Address [facility] Co de Phone Number [facility] * EKG 12 Lead (12/29/2011 11:13 PM EST) Ventricular rate 108 BPM MUSE SYSTEM Atrial Rate 108 BPM MUSE SYSTEM P-R Interval 150 ms MUSE SYSTEM QRS Duration 106 ms MUSE SYSTEM Q-T Interval 340 ms MUSE SYSTEM QTC Calculated (Bezet) 455 ms MUSE SYSTEM Calculated P Spring 19 degrees MUSE SYSTEM Calculated R Spring 31 degrees MUSE SYSTEM Calculated T Spring 51 degrees MUSE SYSTEM INTERPRETATION Sinus tachycardia [...] Provider: Hermila Dumas RN)1200 (Given - Provider: Micehlle Chong RN)1800 (Given - Provider: Michelle Chong [...] Michelle Chong RN)2000 (Given - Provider: Hermila S [...] Routine documented in this encounter Care Teams Dianetic Counselor Relationship Specialty Start Date End Date Patric Al MD PCP - General 12/29/11 02/26/19 documented as of this encounter
--- OUTSIDE RECORDS SUMMARY | 2024-10-31 17:12 | XMS_ITS | Encounter Summary ---
[place] [address] Care Team Providers Care Electronic Court Recorder Name Role Phone Guanako Gusman MD Primary Care Provider [phone] Encounter Details Date Type Department Care Team (Late st Contact Info) Description 01/04/2012 12:13 PM EST Anesthesia [place] [address] Rodrigo Montgomery MD Anesthesia Record Procedure Summary [...] Time: 191301/04/12 0000 by Vangie Castro, AUTOMOTIVE LUBE TECHNICIAN 01/04/121913 by Bhumi Goldberg RCP documented in [...] location: [facility] Surgical Floor Post-op pain: Adequate analgesia Post-op [...] ROS comment: +TOB Cardiovascular (+) hypertension, past NV, CAD, angina, WHITTAKER, (-) valvular problems/murmurs and [...] PM EST Office [place] [phone] Isabela Hayward APRN [facility] [place] [address] 11/10/2024 10:00 AM EST Office [place] [phone] Dai Whitman APRN 11/21/2024 2:15 PM EST Office [place] [phone] Dayanara Grover MD [facility] [place] [address] documented as of this encounter Visit Diagnoses Not on filedocumented in this encounter Care Teams Electronic Court Recorder Relationship Specialty Start Date End Date Guanako Gusman MD PCP - General 12/29/11 02/26/19 documented as of this encounter
--- OUTSIDE RECORDS SUMMARY | 2024-10-31 17:13 | XMS_ITS | Encounter Summary ---
Author Organization [facility] Address [address] [place] [address] Care Team Providers Care Corn Chip Maker Name Role Phone Unavailable Primary Care Provider Unavailabl e Encounter Details Date Type Department Care Team (Latest Contact Info) Description 03/09/2008 10:00 EDT - 03/09/2008 11:59 EDT Hospital Encounter [facility] - Other [address] [place] [address] Attarian, Wil Llanos MD [address] [address] Discharge Disposition: Auto Discharge Social [...] ? GEOVANNA ARAYA ? Accession #: ? [id number] ? : ? 1975 (Age: 34) ??M [...] tissue with a ? pinpoint lumen. ??Two correspondence representative cross sections are submitted as (A). ? Received in formalin labelled Zack Geovanna and L vas def is a 0.8 cm in ? length by 0.2 cm in diameter firm, white, focally light maynard tubular segment of ?? tissue with a pinpoint lumen. ??Two correspondence representative cross sections of the specimen are submitted as (B). (Mary Anne Cheng)/mpl ? End of Report ? 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 Two views of the orbits show no metallic foreign body. 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 Two views of the orbits show no metallic foreign body. us Wil Llanos Attleeanna DE IMG DIAGNOSTIC IMAGING ORDER RANDELL Final Result documented in this encounter Visit Diagnoses Not on filedocumented in this encounter
--- OUTSIDE RECORDS SUMMARY | 2024-10-31 17:13 | XMS_ITS | Encounter Summary ---
Author Organization [facility] Address [address] [place] [address] Care Team Providers Care Child Psychiatrist Name Role Phone JorgeAinsleytierra Llanos ELECTRICAL ASSEMBLER Primary Care Provider [phone] Encounter Details Date Type Department Care Team (Late st Contact Info) Description 12/03/2022 Lab Requisition [facility] Pathology & Laboratory Medicine - [address] [address] Outr Resulting Lab, Provider Social History Tobacco [...] 4th Generation Negative Negative 12/04/2022 9:22 EST [facility] Comment:If acute HIV-1 infec tion is suspected in a high risk patient, submit plasma specimen for HIV-1 RNA quantitation test. Blood VENOUS BLOOD / Unknown 12/02/2022 11:40 EST 12/03/2022 17:37 EST Narrative [facility] - 12/04/2022 9:22 EST Fourth Generation assay performed on the Siemens Centaur XPT. us Provider Outr Resulting Lab IMMUNOLOGY AND SEROL OGY ORDERABLES Final Result [facility] [address] [place] [address] documented in this encounter Visit Diagnoses Not on filedocumented in this encounter Care Teams Child Psychiatrist Relationship Specialty Start Date End Date Cameron Patel, ELECTRICAL ASSEMBLER [address] [place] [id number] PCP - General 10/22/09 documented as of this encounter
--- OUTSIDE RECORDS SUMMARY | 2024-10-31 17:13 | XMS_ITS | Encounter Summary ---
Author Organization [facility] Address [address] [place] [address] Care Team Providers Care Shoe Packer Name Role Phone Unavailable Primary Care Provider Unavailabl e Encounter Details Date Type Department Care Team (Late st Contact Info) Description 11/23/2005 14:17 EST Hospital Encounter [address] [address] Jorge Urrutia MD [address] [place] [phone] Social History Tobacco Use Types Packs/Day Years [...]
--- OUTSIDE RECORDS SUMMARY | 2024-10-31 17:13 | XMS_ITS | Encounter Summary ---
Author Organization [facility] Address [address] [place] [address] Care Team Providers Care Answerer Name Role Phone JorgeAinsleytierra Llanos MANAGER ELECTRICAL Primary Care Provider [phone] Encounter Details Date Type Department Care Team (Late st Contact Info) Description 12/03/2022 Lab Requisition [facility] Pathology & Laboratory Medicine - [address] [address] Outr Resulting Lab, Provider Social History Tobacco [...] Negative Negative 12/04/2022 8:56 EST [facility] Blood VENOUS BLOOD / Unknown 12/02/2022 11:40 EST 12/03/2022 17:36 EST us Provider Outr Resulting Lab CHEMISTRY & BLOOD GA S ORDERABLES Final Result [facility] [address] [place] [address] documented in this encounter Visit Diagnoses Not on filedocumented in this encounter Care Teams Answerer Relationship Specialty Start Date End Date Cameron Patel, MANAGER ELECTRICAL [address] [place] [phone] PCP - General 10/22/09 documented as of this encounter
--- OUTSIDE RECORDS SUMMARY | 2024-10-31 17:13 | XMS_ITS | Encounter Summary ---
Author Organization [facility] Address [facility] [place] [address] Care Team Providers Care Baby Nurse Name Role Phone Guanako Gusman MD Primary Care Provider [phone] Encounter Details Date Type Department Care Team (Late st Contact Info) Description 12/29/2011 Orders Only Cardiology at [address] [phone] Sarthak Pollard MD [facility] [place] [address] Social History Tobacco Use Types [...] PM EST Office [place] [address] Isabela Hayward APRN [facility] [place] [address] 11/10/2024 10:00 AM EST Office [place] [address] Whitman Dai Cunningham, SOUVENIR ASSEMBLER 11/21/2024 2:15 PM EST Office [place] [address] Dayanara Grover MD [facility] [place] [address] documented as of this encounter Procedures Procedure [...] Pollard MD G FILM LIBRARY ORD ERABLES [facility] [address] [facility] [address] documented in this encounter Visit Diagnoses Not on filedocumented in this encounter Care Teams Baby Nurse Relationship Specialty Start Date End Date Guanako Gusman MD PCP - General 12/29/11 02/26/19 documented as of this encounter
--- OUTSIDE RECORDS SUMMARY | 2024-10-31 17:13 | XMS_ITS | Encounter Summary ---
Author Organization [facility] Address [address] [place] [address] Care Team Providers Care Grid Molder Name Role Phone Cameron Patel AUTOGLAZIER Primary Care Provider [phone] Encounter Details Date Type Department Care Team (Late st Contact Info) Description 05/27/2010 Abstract Used for ABSTRACTING Data [phone] Cameron Patel, AUTOGLAZIER [address] [place] [address] Social History Tobacco Use Types [...] mouth. added in this encounter Care Teams Grid Molder Relationship Specialty Start Date End Date Cameron Patel AUTOGLAZIER [address] [place] [address] PCP - General 10/22/09 documented as of this encounter
--- OUTSIDE RECORDS SUMMARY | 2024-10-31 17:13 | XMS_ITS | Encounter Summary ---
[place] [address] Care Team Providers Care Numerical Control Lathe Operator Name Role Phone Patric Al MD Primary Care Provider [phone] Encounter Details Date Type Department Care Team (Late st Contact Info) Description 12/30/2011 9:30 AM EST - 12/30/2011 10:51 AM EST [place] [address] Sarthak Oliveros MD CARDIAC CATHETERIZATION Social History [...] 12:11 PM EST Geovanna Dixon Jr. 1975 [id number] New Diagnosis of Pre-Diabetes For discharge should [...] Some considerations about using metformin in Prediabetics: [place] Diabetes Prevention Program (DPP) as well as [...] - will be starting Cardiac rehab at [facility], encouraged to increase physical activity as advised by cardiologists Weight Loss - A 7% weight loss could significantly improve his BG control Tobacco cessation - There is growing evidence that cigarette smokers are more prone than the general population to develop T2DM. Increase in insulin resistance with tobacco use. Darcie Lange APRN [facility] Endocrinology Diabetes Management [phone] * Patient Instructions* Ricky Graham PA - [...] Anne Tovar and/or the Cardiothoracic Surgery Physician Sales Trainee Team may be reached at . Activity [...] Dr. Inna Tovar. You may use a Rock Track or treadmill but avoid any pulling [...] would be to continue to go [place]. He has quit this way before and [...] only 10% of those who quit [place] are able to be successful. The calculated savings once he quits smoking would be $54 a week, $234 a month, and $2803 a year. If he quits now his savings will be $28,030 in 10 years. The patient was provided with a [facility] Smoking Cessation packet and the contents have been reviewed with him. The patient now has the Quit line number for [place] and has also been encouraged to use [...] Discharge summary faxed to [facility] and receipt confirmed via phone. Patient discharged to home with son. * Adebayo Mcgarry FOOD SERVICE DIRECTOR - 01/08/2012 11:42 AM EST Physical Therapy [...] needs: none ADEBAYO Cunningham XIN MCGARRY Pager: [phone] Physical Therapy Rehabilitation Department * Michelle Chong [...] services. Patient would like VNA services through [facility] [employer] [facility]. PHONE: [phone] FAX: [phone]. Referral made via E-discharge. Please see home care orders that must be included in discharge summary for VN services to start. Patient has glucometer and supplies at bedside. Pt. Denies any further needs from [facility]. Pt. Gets scripts through [place] Medicaid with co-pay. He denies any concerns related to co-pay. * Darcie Lange, REGIONAL REFRIGERATED CDL TRUCK DRIVER - 01/07/2012 9:57 AM EST Geovanna Dixon Jr. 1975 [id number] PATRIC AL MD Follow Up Diabetes Consult [...] Some considerations about using metformin in Prediabetics: [place] Diabetes Prevention Program (DPP) as well as [...] - will be starting Cardiac rehab at [facility], encouraged to increase physical activity as [...] sensitive Novolog correction only Darcie Lange APRN [facility] Endocrinology Diabetes Management [phone] Pager [phone] This case was discussed with Dr. Christina rBody. 25 min time spent in patient care with 20 counseling, seeing patient, changing orders and discussion with the patient and the primary team as well as nursing. * Inna Tovar MD - 01/07/2012 9:39 AM EST Cardiac Surgery Progress Note: ID: [id number] 36/M POD #[address] Tovar [...] results found for this basename: phart, po2art, vdd4sxr Assessment/Plan: Pathway. Neuro: ambulating on own per [...] home. (ie take out the trash or picket labor union his child) Objective:Pt was seen today for [...] interventions: 30 minutes NAM TRINIDAD, PT Pager: [phone] Physical Therapy Rehabilitation Department * Vibha Martines [...] FOR CABG performed by INNA TOVAR at [facility] OR ??? Cabg, artery-vein, single 01/04/2012 @CABG, VENOUS & ARTERIAL GRAFT;SINGLE VEIN GRAFT performed by INNA TOVAR at [facility] OR Outpatient prescriptions marked as taking [...] issues Neck: No issues Cardiovascular: See above SOB/WHITTAKRE/chest pain: Chest pressure prior to surgery Cough: [...] yes Date: 12/29/11 Why then: Admission to [facility] What will be different this time: Just [...] would be to continue to go [place]. He has quit this way before and it lasted several years, so he has a history of being successful with this method. He also pointed out that his father and an uncle quit (for now over 10 years) by going [place]. I told him that it is difficult to recommend a quit method that has a 90% failure rate, but that said, it is his choice and that I would provide him with a toolkit of information so that he will be as knowledgeable as possible about nicotineaddiction and how to stay quit. And we do know that 10% of those who quit [place] are able to be successful. I calculated and shared with him that his savings once he quits smoking would be $54 a week, $234 amonth, and $2803 a year. If he quits now his savings will be $28,030 in 10 years. The patient has also been provided with a [facility] Smoking Cessation packet and the contents have been reviewed with him. The patient now has the Quit line number for [place] and has also been encouraged to use this if needed for support. In addition he was in agreement with a referral to the [place] Quitnetworkand I have FAXed a referral to [...] PM EST Nutrition Services - Education Note Geovanan Dixon Jr. : 1975 AGE: 36 y.o. MedDx/PMHx: s/p CABG x 2 Reason for Nutrition Intervention: Hospital Day 9 Diet Order: [facility] Appetite: fair Food allergies: none Chewing/Swallowing difficulty: none Height: (cm) 180.3 Weight: (kg) 127.9 01/06/12 Wt hx: (kg) 124.5 12/29/11 BMI: 38.4 Education: [facility] dietary guidelines. Tips To Better Food Intake (Protein) dietary guidelines. Verbalized good understanding. Education material, with means of contact provided. Assessment: Patient verbalized good understanding of protein needs for healing as well as [facility] Heart Healthy guidelines. I have added high protein snacks between meals and CIB shakes to meal trays for extra protein/nutrition. Nutrition Plan: Diet: [facility] Recommend Daily Multi Vitamins. Added high protein snacks. CIB w/skim milk shakes three times per day. Encourage good po intake. Monitor weight. Support and encouragement provided. Nutrition services to follow weekly thru hospital course unless consulted in the interim. ACOSTA SMALL * Inna Tovar MD - 01/06/2012 1:50 PM EST Cardiac Surgery In Patient Progress Note Patient Name: Geovanna Dixon Jr. : [id number] MR#: [id number] Admitted: 12/29/2011 Hospital Day 8 days Problem [...] Hamlin RN - 01/06/2012 10:11 AM EST [facility] CARDIAC REHABILITATION Geovanna Dixon Jr. was seen today regarding participation in outpatient Phase 2 Cardiac Rehabilitation at [facility] . A referral will be sent to this program. The patient was given contact information and should expect to be contacted by the program within 1-2 weeks after discharge from [facility]. * Kareen Mendoza, PT - 01/05/2012 3:59 [...] FOR CABG performed by INNA TOVAR at [facility] OR ??? Cabg, artery-vein, [...] minutes brief evaluation KAREEN MENDOZA, PT Pager: [phone] Physical Therapy Rehabilitation Department * Camille Angulo [...] MD Financial Concerns: insured via Medicare and [employer] Transportation: With family members. Father was in room also and said he could drive as could step-daughter. Anticipated Services at Discharge: will require re-assessment closer to time of d/c. May need VNA. A: medical plan still evolving. P: This keno writer / runner or colleague from the Office of Care [...] FULL CODE Paola Akers PGY 1 Pager [phone] Attending Addendum: I spoke with the patient and his family briefly this am. I agree with the principal findings. The impression and plan incorporate my input. No contraindication to surgery today. Sarthak Pollard MD [facility] pager [phone] * Sarthak Pollard MD - 01/03/2012 11:08 [...] ??? metoprolol tartrate 25 mg Oral Q6H OJSE ??? sodium chloride 0.9 % 5 mL [...] risk of aggravating CAD. Sarthak Pollard MD [facility] pager [phone] * Bal John MD - 01/02/2012 3:10 [...] Cristina Ambriz MD PGY1, Internal Medicine Pager [phone] 01/02/2012 Attending Addendum: I have interviewed and examined the patient. I agree with the principal findings. The impression and plan incorporate my input. As above, doing well. Will keep on heparin until surgery. No angina, HF, bleeding, or evidence of HIT. Sarthak Pollard MD [facility] pager [phone] * Inna Tovar MD - 01/01/2012 3:17 PM EST Please see Dr. Major's note from 12/31/11 for full details. Briefly, Mr. Dixon developed unstable angina and ruled in for SD. Cath shows severe 3 vessel disease. Echo [...] mg BID Paola Akers PGY 1 Pager [phone] Attending Addendum: I have interviewed and examined the patient. I agree with the principal findings. The impression and plan incorporate my input. He is disappointed that his surgery has been postponed until Wednesday butunderstands. He remains cp free. I've reviewed his angiograms and believe he needs to stay on heparin until surgery. All questions answered. Sarthak Pollard MD [facility] pager [phone] * Andi Rene MD - 12/31/2011 5:20 [...] mg BID Paola Akers PGY 1 Pager [phone] Cardiology Attending Progress Note Addendum: I have [...] would like to attend cardiac rehab at [facility] in [facility]. We will meet him again after [...] Call saucedo within reach, family at bedside. [phone]) Patient off unit to XRAY with transpo & GRADUATE STUDIES DEAN. documented in this encounter H&P Notes * [...] alleviate the pain. He eventually presented to [facility] on Wednesday wherehe had elevated [...] motorcycles and hunting He is NOT a zoroastrianism FHx: Heart disease on both sides of the family Father's side with multiple uncles with SD's, one at age of 40 Mother's side with uncle at age 50 from SD Diabetes in mother ROS: Positive headache, nausea [...] 13.2 12/29/2011 PTT 31 12/30/2011 Troponins at [facility]: 0.05-->0.03 Imaging: Echo 12/30/11: 1. The left [...] loss were emphasized as they relate to assistant terminal manager patency of his grafts. He should receive smoking cessation counseling donya. One post op consideration will be vent wean and respiratory status given likely underlying CAMILLA and his known narcolepsy. 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 Pt seen and interviewed with [...] +active 25 pack year smoker comes to [facility] from [facility] for evaluation of intermittent CP [...] history (both paternal grandparents passing away from [facility] and paternal aunts/uncles with histories of CAD). [...] FULL Provider: REMIGIO CERON MD Pager #: [phone] documented in this encounter Procedure Notes * Provider, Scanning - 01/10/2012 1:46 PM ESTAssociated Order(s): SCAN DOC: LINE INSTALLER TROLLEY * Provider, Scanning - 01/10/2012 1:46 PM [...] 3:45 PM EST Geovanna Dixon Jr. 1975 [id number] Inpatient Endocrinology Glucose Management Consult Date of Consultation: 01/06/2012 Place of Consultation: [facility] Consult Requested by: Dr. Tovar, [place] Surgery Reason for Consultation: Geovanna Dixon Jr. [...] Diabetes Care: Medications: None Monitoring: None Diet: [facility] Healthy No Known Allergies Past Medical History: [...] considerations about using metformin in Prediabetics: ?? [place] Diabetes Prevention Program (DPP) as well as [...] - will be starting Cardiac rehab at [facility], encouraged to increase physical activity as [...] metformin 500 mg QD Darcie Lange APRN [facility] Endocrinology Diabetes Management [phone] Pager [phone] This case was discussed with Dr. Christina [...] alleviate the pain. He eventually presented to [facility] on Wednesday where he had [...] Geovanna Dixon Jr. was admitted to [facility] on 12/29/2011 to the cardiologyservice [...] Medications: Geovanna Dixon Jr. Home Medication Instructions CRAIG:[id number] Printed on:01/08/12 1208 Medication Information simvastatin (ZOCOR) [...] Anne Tovar and/or the Cardiothoracic Surgery Physician Sales Trainee Team may be reached at . Activity [...] Dr. Inna Tovar. You may use a Rock Track or treadmill but avoid any pulling [...] would be to continue to go [place]. He has quit this way before and [...] only 10% of those who quit [place] are able to be successful. The calculated savings once he quits smoking would be $54 a week, $234 a month, and $2803 a year. If he quits now his savings will be $28,030 in 10 years. The patient was provided with a [facility] Smoking Cessation packet and the contents have been reviewed with him. The patient now has the [place] number for [place] and has also been encouraged to use this ifneeded for support. In addition he was in agreement with a referral to the [place] Quitnetwork and a referral was faxed to [...] Some considerations about using metformin in Prediabetics: [place] Diabetes Prevention Program (DPP) as well as [...] - will be starting Cardiac rehab at [facility], encouraged to increase physical activity as advised by cardiologists Weight Loss - A 7% weight loss could significantly improve his BG control Tobacco cessation - There is growing evidence that cigarette smokers are more prone than the general population to develop T2DM. Increase in insulin resistance with tobacco use. Darcie Lange APRN [facility] Endocrinology Diabetes Management [phone] Medications: Take only those medications listed on [...] should resume a low fat, low cholesterol, [place] Heart Association Diet. Driving: No driving for [...] in outpatient Phase 2 Cardiac Rehabilitation at [facility] . A referral will be sent to this program. He was given contact information and shouldexpect to be contacted by the program within 1-2 weeks after discharge from [facility]. Arrangements for VNA/home care: PATIENT'S LOCATION: Geovanna Dixon Jr. [address] [place] [address] There is no home phone number on file. Telephone Information: In discussion with the attending physician, it is certified that this patient is under their care and that they, or a nurse practitioner, clinical nurse specialist or physician's assistant terminal manager who is working directly with them, had [...] for services as follows: HOME HEALTH AGENCY: [facility]. PHONE: [phone] FAX: [phone] RN orders: Cardiopulmonary assessment, incisional assessment, assess [...] issues please call the Cardiac SurgeryOffice at [phone] FOR MEDICARE ONLY: (please delete this section if not Medicare) In discussion with the attending physician, it is certified that the clinical findings support thatthis patient is homebound (i.e. absences from home require considerable and taxing effort and are for medical reasons or christianity services of infrequently or of short duration [...] practitioner, clinical nurse specialist or physician's assistant terminal manager who is working directly with them, had [...] effort and are for medical reasons or christianity services of infrequently or of short duration when for other reasons) Please note that any additional orders needs or changes will need to be obtained from this patient's PCP: PATRIC AL MD [phone] All VNA agencies which cover the area of patient's residence have been reviewed, either verbally feli writing, and patient/family have chosen the indicated home health care agency for home services. Comments: Questions: Responses: Agency name and contact information [facility] Patient location post discharge home What services are requested Start date 01/10/2012 Responsible MD post discharge contact info PCP RN to remove chest tube sutures on or after 01/13/12. Signed: Ricky Graham PA-C [facility] Section of Cardiothoracic Surgery Date: 01/08/12 CC: MD CARLOS MENDEZ [facility] EMERGENCY DEPT [address] [place] [address] [place] [address] * Op Note - Inna Tovar MD - 01/04/2012 3:55 PM EST [facility] Operative Note Patient Name: Geovanna Dixon Jr. : [id number] MR#: [id number] Case Date: 01/04/2012 Surgeon: Surgeon(s) and Role: * INNA TVOAR MD - Primary * JUSTIN ZUNIGA - Resident-Lesser Role Pre-op Diagnosis: Coronary Artery Disease Post-operative Diagnosis: Coronary Artery Disease Procedure: Coronary artery bypass grafting x 2 (Left internal mammary artery to the LAD, saphenous vein graft to the PDA) with endoscopic vein harvest. Indications: Mr. Dioxn was admitted with NSTEMI. Cath showed 99% stenosis of the LAD at a bifurcation of a largediagonal branch, 95% stenosis of the distal Circumflex, and stenosis of the distal RCA. It was decided to proceed with CABG. Findings: The heart was slightly enlarged. There was diffuse disease in all little shell tribe vessels. The OFELIA and vein were of excellent quality. The lungs had early emphysematous changes. Procedure Details: The patient was brought to the operating room and given general anesthesia. A [place]-Haley catheter, radial arterial line, and Mendez catheter [...] fter inspection for adequate hemostasis, two #28 Chinese chest tubes were placed and brought out [...] Note Patient Name: Geovanna Dixon Jr. 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 No recent out door activities or [...] likely. (Leukocytosis may be r/t stress of SD.) Bacteremia as a complication of his cath, [...] PM EST Office [place] [phone] Isabela Hayward APRN [facility] [place] [address] 11/10/2024 10:00 AM EST Office [place] [phone] Dai Whitman APRN 11/21/2024 2:15 PM EST Office [place] [phone] Dayanara Grover MD [facility] [place] [address] Scheduled Referrals Name Type Priority Associated Diagnoses Orde r Schedule REFERRAL TO CARDIAC REHAB Outpatient Referral Routine Chest pain Ordered: 01/08/2012 documented as of this encounter Procedures Procedure Name Priority Date/Time Associated Diagnosis Comments CARDIAC CATHETERIZATION Routine 01/11/20 12 11:04 AM EST LAB SCAN 01/10/2012 1:46 PM EST LINE INSTALLER TROLLEY SCAN 01/10/2012 1:46 PM EST CARDIAC CATH [...] 01/05/20 12 2:00 AM EST CARDIAC ENZYMES ([facility]) Routine 01/05/2012 2:00 AM EST CREATININE Routine [...] 12/30/2011 4:25 PM EST TYPE AND SCREEN ([facility]/BABITA) Routine 12/30/2011 4:14 PM EST CARDIAC ENZYMES ([facility]) STAT 12/30/2011 2:08 PM EST APTT STAT 12/30/2011 2:08 PM EST HIV SCREEN, 4TH GENERATION ([facility]/APD/NLH) Routine 12/30/2011 10:18 AM EST ECHOCARDIOGRAM TRANSTHORACIC [...] Routine 12/30/2011 7:07 AM EST CARDIAC ENZYMES ([facility]) STAT 12/30/2011 5:45 AM EST APTT STAT [...] 12/29/19 12 11:29 PM EST CARDIAC ENZYMES ([facility]) STAT 12/29/2011 11:29 PM EST APTT STAT [...] (Bezet) 453 ms MUSE SYSTEM Calculated P [place] 41 degrees MUSE SYSTEM Calculated R [place] 25 degrees MUSE SYSTEM Calculated T [place] 74 degrees MUSE SYSTEM INTERPRETATION Sinus tachycardia [...] EXT O RDR/RSLT * SCAN DOC: LINE INSTALLER TROLLEY (01/10/2012 1:46 PM EST) Anatomical Region Laterality Modality Other Narrative 01/11/2012 8:32 AM EST Procedure Note Provider, Scanning - 01/10/2012 1:46 PM EST Scanning Provider MEDIA MGR SCAN EXT O RDR/RSLT * POCT GLUCOSE LAB USE ONLY (01/08/2012 12:00 PM EST) Glucose, POC 106 60 - 199 mg/dL [facility] Comment: Supplemental ranges: <110 mg/dL before meals <200 mg/dL all other times of the day Blood specimen (specimen) 01/08/2012 12:00 PM EST 01/08/2012 12:00 PM EST Andi Rene MD POINT OF CARE TEST O RDERABLES [facility] * Potassium (01/08/2012 10:05 AM EST) Pathologist [facility] Potassium 4.2 3.5 - 5.0 mmol/L [facility] Comment: Please note: ??Patients with WBC >100,000 [...] Tovar MD CHEMISTRY ORDERABLES Performing Organization Address [facility] de Phone Number [facility] * POCT GLUCOSE LAB USE ONLY (01/08/2012 7:21 AM EST) Glucose, POC 144 60 - 199 mg/dL [facility] Comment: Supplemental ranges: <110 mg/dL before meals <200 mg/dL all other times of the day Blood specimen (specimen) 01/08/2012 7:21 AM EST 01/08/2012 7:21 AM EST Andi Rene MD POINT OF CARE TEST O GILDA Performing Organization Address [facility] de Phone Number [facility] * POCT GLUCOSE LAB USE ONLY (01/07/2012 8:43 PM EST) Glucose, POC 179 60 - 199 mg/dL [facility] Comment: Supplemental ranges: <110 mg/dL before meals <200 mg/dL all other times of the day Blood specimen (specimen) 01/07/2012 8:43 PM EST 01/07/2012 8:43 PM EST Andi Rene MD POINT OF CARE TEST O RDERAHERNANDEZ Performing Organization Address [facility] de Phone Number [facility] * POCT GLUCOSE LAB USE ONLY (01/07/2012 4:47 PM EST) Glucose, POC 128 60 - 199 mg/dL [facility] Comment: Supplemental ranges: <110 mg/dL before meals <200 mg/dL all other times of the day Blood specimen (specimen) 01/07/2012 4:47 PM EST 01/07/2012 4:47 PM EST Andi Rene MD POINT OF CARE TEST O GILDA Performing Organization Address [facility] de Phone Number [facility] * Potassium (01/07/2012 11:42 AM EST) Potassium 3.6 3.5 - 5.0 mmol/L [facility] Comment: Please note: ??Patients with WBC >100,000 [...] Tovar MD CHEMISTRY ORDERABLES Performing Organization Address [facility] Phone Number [facility] * POCT GLUCOSE LAB USE ONLY (01/07/2012 11:41 AM EST) Glucose, POC 114 60 - 199 mg/dL [facility] Comment: Supplemental ranges: <110 mg/dL before meals <200 mg/dL all other times of the day Blood specimen (specimen) 01/07/2012 11:41 AM EST 01/07/2012 11:41 AM EST Andi Rene MD POINT OF CARE TEST Stephanie VO Performing Organization Address [facility] [facility] Phone Number [facility] * XR chest routine PA & lateral [...] LAB USE ONLY (01/07/2012 8:00 AM EST) [facility] Glucose, POC 116 60 - 199 mg/dL [facility] Comment: Supplemental ranges: <110 mg/dL before meals <200 mg/dL all other times of the day Blood specimen (specimen) 01/07/2012 8:00 AM EST 01/07/2012 8:00 AM EST Andi Rene MD POINT OF CARE TEST O RDERABLES Performing Organization Address City/[facility]/ZIP Co de Phone Number CERBRIAN MILLENNIUM * [...] MD HEMATOLOGY ORDERABLE S Performing Organization Address [facility]/ZIP Co de Phone Number ARIAN NELSON * (ABNORMAL) Basic Metabolic Panel (non-fasting) (01/07/2012 4:11 AM EST) [facility] Glucose 127 60 - 199 mg/dL [...] 30 - 300 Clinical Albuminuria ?? >300 *[place] [employer]. Diabetic Nephropathy. Diabetes Care 1997;(Suppl 1):S24-S27 Exercise within 24 hour, infection, fever, CHF, marked hyperglycemia, and marked hypertension may elevate urinary albumin excretion over baseline values. Urine specimen (specimen) 01/06/2012 9:03 PM EST 01/06/2012 10:28 PM EST Narrative Resulting Agency Comment Spec In Lab Inna Tovar MD URINE ORDERABLES Performing Organization Address [facility] Phone Number [facility] * POCT GLUCOSE LAB USE ONLY (01/06/2012 7:46 PM EST) Glucose, POC 127 60 - 199 mg/dL [facility] Comment: Supplemental ranges: <110 mg/dL before meals <200 mg/dL all other times of the day Blood specimen (specimen) 01/06/2012 7:46 PM EST 01/06/2012 7:46 PM EST Andi Rene MD POINT OF CARE TEST O GILDA Performing Organization Address [facility] Phone Number [facility] * POCT GLUCOSE LAB USE ONLY (01/06/2012 4:24 PM EST) Glucose, POC 131 60 - 199 mg/dL [facility] Comment: Supplemental ranges: <110 mg/dL before meals <200 mg/dL all other times of the day Blood specimen (specimen) 01/06/2012 4:24 PM EST 01/06/2012 4:24 PM EST Andi Rene MD POINT OF CARE TEST Stephanie VO Performing Organization Address [facility] POCT GLUCOSE LAB USE ONLY (01/06/2012 12:06 PM EST) Glucose, POC 160 60 - 199 mg/dL [facility] Comment: Supplemental ranges: <110 mg/dL before meals <200 mg/dL all other times of the day Blood specimen (specimen) 01/06/2012 12:06 PM EST 01/06/2012 12:06 PM EST Andi Rene MD POINT OF CARE TEST O RDTYESHA Performing Organization Address [facility] de Phone Number [facility] * Potassium (01/06/2012 9:59 AM EST) [facility] Potassium 4.0 3.5 - 5.0 mmol/L [facility] Comment: Please note: ??Patients with WBC >100,000 [...] Tovar MD CHEMISTRY ORDERABLES Performing Organization Address [facility] de Phone Number [facility] * POCT GLUCOSE LAB USE ONLY (01/06/2012 6:53 AM EST) Glucose, POC 168 60 - 199 mg/dL [facility] Comment: Supplemental ranges: <110 mg/dL before meals <200 mg/dL all other times of the day Blood specimen (specimen) 01/06/2012 6:53 AM EST 01/06/2012 6:53 AM EST Andi Rene MD POINT OF CARE TEST O GILDA Performing Organization Address [facility] de Phone Number [facility] * POCT GLUCOSE LAB USE ONLY (01/06/2012 5:03 AM EST) Glucose, POC 147 60 - 199 mg/dL [facility] Comment: Supplemental ranges: <110 mg/dL before meals <200 mg/dL all other times of the day Blood specimen (specimen) 01/06/2012 5:03 AM EST 01/06/2012 5:03 AM EST Andi Rene MD POINT OF CARE TEST O GILDA Performing Organization Address [facility] de Phone Number [facility] * POCT GLUCOSE LAB USE ONLY (01/06/2012 3:16 AM EST) Glucose, POC 126 60 - 199 mg/dL [facility] Comment: Supplemental ranges: <110 mg/dL before meals <200 mg/dL all other times of the day Blood specimen (specimen) 01/06/2012 3:16 AM EST 01/06/2012 3:16 AM EST Andi Rene MD POINT OF CARE TEST O GILDA Performing Organization Address [facility] de Phone Number [facility] * POCT GLUCOSE LAB USE ONLY (01/06/2012 1:12 AM EST) Glucose, POC 135 60 - 199 mg/dL [facility] Comment: Supplemental ranges: <110 mg/dL before meals <200 mg/dL all other times of the day Blood specimen (specimen) 01/06/2012 1:12 AM EST 01/06/2012 1:12 AM EST Andi Rene MD POINT OF CARE TEST O DIMITRIERAHERNANDEZ Performing Organization Address [facility] de Phone Number [facility] * POCT GLUCOSE LAB USE ONLY (01/05/2012 11:52 PM EST) Glucose, POC 133 60 - 199 mg/dL [facility] Comment: Supplemental ranges: <110 mg/dL before meals <200 mg/dL all other times of the day Blood specimen (specimen) 01/05/2012 11:52 PM EST 01/05/2012 11:52 PM EST Andi Rene MD POINT OF CARE TEST O RDERABLES Performing Organization Address [facility] Phone Number [facility] * POCT GLUCOSE LAB USE ONLY (01/05/2012 10:54 PM EST) Glucose, POC 130 60 - 199 mg/dL [facility] Comment: Supplemental ranges: <110 mg/dL before meals <200 mg/dL all other times of the day Blood specimen (specimen) 01/05/2012 10:54 PM EST 01/05/2012 10:54 PM EST Andi Rene MD POINT OF CARE TEST O RDERAHERNANDEZ Performing Organization Address [facility] Phone Number [facility] * POCT GLUCOSE LAB USE ONLY (01/05/2012 9:51 PM EST) Glucose, POC 132 60 - 199 mg/dL [facility] Comment: Supplemental ranges: <110 mg/dL before meals <200 mg/dL all other times of the day Blood specimen (specimen) 01/05/2012 9:51 PM EST 01/05/2012 9:51 PM EST Andi Rene MD POINT OF CARE TEST O GILDA Performing Organization Address [facility] Phone Number [facility] * POCT GLUCOSE LAB USE ONLY (01/05/2012 8:50 PM EST) Glucose, POC 126 60 - 199 mg/dL [facility] MILLENNIUM Comment: Supplemental ranges: <110 mg/dL before meals <200 mg/dL all other times of the day Blood specimen (specimen) 01/05/2012 8:50 PM EST 01/05/2012 8:50 PM EST Andi Rene MD POINT OF CARE TEST O RDERAHERNANDEZ Performing Organization Address [facility] de Phone Number [facility] * POCT GLUCOSE LAB USE ONLY (01/05/2012 8:07 PM EST) Glucose, POC 126 60 - 199 mg/dL [facility] Comment: Supplemental ranges: <110 mg/dL before meals <200 mg/dL all other times of the day Blood specimen (specimen) 01/05/2012 8:07 PM EST 01/05/2012 8:07 PM EST Andi Rene MD POINT OF CARE TEST O RDTYESHA Performing Organization Address [facility] de Phone Number [facility] * POCT GLUCOSE LAB USE ONLY (01/05/2012 6:57 PM EST) Glucose, POC 137 60 - 199 mg/dL [facility] Comment: Supplemental ranges: <110 mg/dL before meals <200 mg/dL all other times of the day Blood specimen (specimen) 01/05/2012 6:57 PM EST 01/05/2012 6:57 PM EST Andi Rene MD POINT OF CARE TEST O GILDA Performing Organization Address [facility] de Phone Number [facility] * POCT GLUCOSE LAB USE ONLY (01/05/2012 4:59 PM EST) Glucose, POC 147 60 - 199 mg/dL [facility] Comment: Supplemental ranges: <110 mg/dL before meals <200 mg/dL all other times of the day Blood specimen (specimen) 01/05/2012 4:59 PM EST 01/05/2012 4:59 PM EST Andi Rene MD POINT OF CARE TEST O GILDA Performing Organization Address [facility] de Phone Number [facility] * POCT GLUCOSE LAB USE ONLY (01/05/2012 1:05 PM EST) Glucose, POC 154 60 - 199 mg/dL CERNER MILLENNIUM Comment: Supplemental ranges: <110 mg/dL before meals <200 mg/dL all other times of the day Blood specimen (specimen) 01/05/2012 1:05 PM EST 01/05/2012 1:05 PM EST Andi Rene MD POINT OF CARE TEST O RDERAHERNANDEZ Performing Organization Address [facility] Co de Phone Number [facility] * POCT GLUCOSE LAB USE ONLY (01/05/2012 12:42 PM EST) Glucose, POC 148 60 - 199 mg/dL [facility] Comment: Supplemental ranges: <110 mg/dL before meals <200 mg/dL all other times of the day Blood specimen (specimen) 01/05/2012 12:42 PM EST 01/05/2012 12:42 PM EST Andi Rene MD POINT OF CARE TEST O DIMITRIERAHERNANDEZ Performing Organization Address [facility] Co de Phone Number [facility] * POCT GLUCOSE LAB USE ONLY (01/05/2012 9:54 AM EST) Glucose, POC 145 60 - 199 mg/dL [facility] Comment: Supplemental ranges: <110 mg/dL before meals <200 mg/dL all other times of the day Blood specimen (specimen) 01/05/2012 9:54 AM EST 01/05/2012 9:54 AM EST Andi Rene MD POINT OF CARE TEST O DIMITRIERAHERNANDEZ Performing Organization Address [facility] Co de Phone Number [facility] * POCT GLUCOSE LAB USE ONLY (01/05/2012 8:00 AM EST) Glucose, POC 168 60 - 199 mg/dL [facility] Comment: Supplemental ranges: <110 mg/dL before meals <200 mg/dL all other times of the day Blood specimen (specimen) 01/05/2012 8:00 AM EST 01/05/2012 8:00 AM EST Andi Rene MD POINT OF CARE TEST O RDERABLES Performing Organization Address [facility] de Phone Number [facility] * POCT GLUCOSE LAB USE ONLY (01/05/2012 5:58 AM EST) Glucose, POC 164 60 - 199 mg/dL [facility] ZurshENNIUM Comment: Supplemental ranges: <110 mg/dL before meals <200 mg/dL all other times of the day Blood specimen (specimen) 01/05/2012 5:58 AM EST 01/05/2012 5:58 AM EST Andi Rene MD POINT OF CARE TEST O RDERABLES Performing Organization Address [facility] Phone Number [facility] * POCT GLUCOSE LAB USE ONLY (01/05/2012 4:12 AM EST) Glucose, POC 148 60 - 199 mg/dL [facility] Comment: Supplemental ranges: <110 mg/dL before meals <200 mg/dL all other times of the day Blood specimen (specimen) 01/05/2012 4:12 AM EST 01/05/2012 4:12 AM EST Andi Rene MD POINT OF CARE TEST O RDERABLES Performing Organization Address [facility] de Phone Number [facility] * POCT GLUCOSE LAB USE ONLY (01/05/2012 2:05 AM EST) Glucose, POC 148 60 - 199 mg/dL [facility] MILLENNIUM Comment: Supplemental ranges: <110 mg/dL before meals <200 mg/dL all other times of the day Blood specimen (specimen) 01/05/2012 2:05 AM EST 01/05/2012 2:05 AM EST Andi Rene MD POINT OF CARE TEST O RDERABLES Performing Organization Address [facility] Co de Phone Number [facility] * (ABNORMAL) DIFFERENTIAL, AUTOMATED (01/05/2012 [...] consensus document of the Joint Society of Cardiology/[place] [employer] Committee for the redefinition of myocardial infarction. Journal of the [place] College [employer] 2000; 36: 959-969] Creatine Kinase 436(H) 0 - 200 unit/L [facility] 8hands Blood specimen (specimen) 01/05/2012 2:00 AM EST 01/05/2012 2:11 AM EST Narrative Resulting Agency Comment Spec In Lab Sarthak Pollard MD CHEMISTRY ORDERABLES Performing Organization Address [facility] Co de Phone Number [facility] 8hands * Potassium (01/05/2012 2:00 AM EST) Pathologist [facility] Potassium 4.4 3.5 - 5.0 mmol/L [facility] Comment: Please note: ??Patients with WBC [...] Pollard MD CHEMISTRY ORDERABLES Performing Organization Address [facility] Co de Phone Number [facility] 8hands * (ABNORMAL) Glucose, fasting (01/05/2012 2:00 AM EST) Glucose Fasting 148(H) 65 - 99 mg/dL [facility] Comment: ?Fasting* Glucose Interpretive Criteria Normal ?65-99 [...] of Diabetes Mellitus, Position Statement from the [place] [employer]. ??Diabetes Care, Volume 33, Supplement 1, Nov 2009 Blood specimen (specimen) 01/05/2012 2:00 AM EST 01/05/2012 2:11 AM EST Narrative Resulting Agency Comment Spec In Lab Sarthak Pollard MD CHEMISTRY ORDERABLES [facility] * Creatinine, serum (01/05/2012 2:00 AM EST) Creatinine 0.86 0.80 - 1.50 mg/dL [facility] Est Glomerular Filtration Rate >60 >=60 [facility] Comment: The National Kidney Disease Education Program [...] Platelet 294 145 - 370 x10(3)/mc L [facility] RDW Standard Deviation 42.2 35.0 - 46.0 fL [facility] RDW coefficient of variation 13.0 10.9 - 14.4 % [facility] Mean Platelet Volume 9.7 9.0 - 12.0 fL [facility] Blood specimen (specimen) 01/05/2012 2:00 AM EST 01/05/2012 2:11 AM EST Narrative Resulting Agency Comment Spec In Lab Sarthak Pollard MD HEMATOLOGY ORDERABLE S Performing Organization Address [facility] Co de Phone Number [facility] * POCT GLUCOSE LAB USE ONLY (01/04/2012 11:58 PM EST) Glucose, POC 136 60 - 199 mg/dL [facility] Comment: Supplemental ranges: <110 mg/dL before meals <200 mg/dL all other times of the day Blood specimen (specimen) 01/04/2012 11:58 PM EST 01/04/2012 11:58 PM EST Andi Rene MD POINT OF CARE TEST O GILDA Performing Organization Address [facility] Co de Phone Number [facility] * POCT GLUCOSE LAB USE ONLY (01/04/2012 9:00 PM EST) Glucose, POC 143 60 - 199 mg/dL [facility] Comment: Supplemental ranges: <110 mg/dL before meals <200 mg/dL all other times of the day Blood specimen (specimen) 01/04/2012 9:00 PM EST 01/04/2012 9:00 PM EST Andi Rene MD POINT OF CARE TEST O GILDA Performing Organization Address [facility] Co de Phone Number [facility] * GLUCOSE, RANDOM (01/04/2012 9:00 PM EST) Glucose 128 60 - 199 mg/dL [facility] Comment:Diabetes: >=200 mg/d L plus symptoms Blood specimen (specimen) 01/04/2012 9:00 PM EST 01/04/2012 9:08 PM EST Narrative Resulting Agency Comment Spec In Lab Sarthak Pollard MD CHEMISTRY ORDERABLES Performing Organization Address [facility] de Phone Number CERBRIAN CAENNIUM * (ABNORMAL) Hemoglobin (01/04/2012 9:00 PM EST) Hemoglobin 13.6(L) 13.7 - 17.5 gm/dL [facility] MILLENNIUM Blood specimen (specimen) 01/04/2012 9:00 PM EST 01/04/2012 9:08 PM EST Narrative Resulting Agency Comment Spec In Lab Sarthak Pollard MD HEMATOLOGY ORDERABLE S Performing Organization Address [facility] Phone Number CERBRIAN CAENNIUM * Potassium (01/04/2012 [...] Pollard MD CHEMISTRY ORDERABLES Performing Organization Address [facility] Phone Number CERBRIAN MILLENNIUM * (ABNORMAL) BLOOD GAS 2 ARTERIAL (01/04/2012 6:47 PM EST) pH, Arterial 7.33(L) CERNER MILLENNIUM PCO2, Arterial 47(H) mmHg CERNE R MILLENNIUM PO2, Arterial 109(H) mmHg CERNER MILLENNIUM Bicarbonate, Arterial 24.1 mmol/L CERNER MILLENNIUM Base Excess, Arterial -1.9 mmol/L CERNER MILLENNIUM Hgb Blood Gas 14.1 gm/dL CERNER MILLENNIUM Comment: Total Hemoglobin (in gm/dL) ?Based on [facility] [place]ematology ranges: ?Age ?Reference Range Less than [...] Comment: Total Hemoglobin (in gm/dL) ?Based on [facility] Hematology ranges: ?Age ?Reference Range Less than [...] Comment: Total Hemoglobin (in gm/dL) ?Based on [facility] Hematology ranges: ?Age ?Reference Range Less than [...] (Bezet) 455 ms MUSE SYSTEM Calculated P [place] 48 degrees MUSE SYSTEM Calculated R [place] 23 degrees MUSE SYSTEM Calculated T [place] 71 degrees MUSE SYSTEM INTERPRETATION Normal sinus rhythm Normal ECG When compared with ECG of 30-DEC-2011 17:24, Vent. rate has decreased BY ??35 BPM Minimal criteria for Inferior infarct are no longer Present Nonspecific T wave abnormality, improved in Anterolateral leads Confirmed by fellow MD Steve, Luca ([id number]) on 01/05/2012 10:22:57 AM Confirmed by MD [...] mmHg CERNER MILLENNIUM Comment: Noted by instrument maker. MTF PO2, Arterial 145(H) mmHg CERNER MILLENNIUM Bicarbonate, Arterial 25.5 mmol/L CERNER MILLENNIUM Base Excess, Arterial -0.7 mmol/L CERNER MILLENNIUM Hgb Blood Gas 11.1(L) gm/dL CERNER MILLENNIUM Comment: Total Hemoglobin (in gm/dL) ?Based on [facility] Hematology ranges: ?Age ?Reference Range Less than [...] MD HEMATOLOGY ORDERABLE S Performing Organization Address [facility] Co de Phone Number ARIAN CAENNIUM * FIBRINOGEN (01/04/2012 3:28 PM EST) Fibrinogen 364 200 - 470 mg/dL [facility] MILLENNIUM Comment:Called by: LEILANI, Read back by: AKANKSHA SAMPSON, Date/Time:01/04/12 15:45. Blood specimen (specimen) 01/04/2012 3:28 PM EST 01/04/2012 3:28 PM EST Narrative Resulting Agency Comment Spec In Lab Sarthak Pollard MD HEMATOLOGY ORDERABLE S Performing Organization Address [facility] de Phone Number [facility] * APTT (01/04/2012 3:28 PM EST) Partial Thromboplastin Time 30 25 - 35 sec CERNER MILLENNIUM Comment: Recommended therapeutic PTT range for full dose unfractionated heparin is 80-114 seconds. Blood specimen (specimen) 01/04/2012 3:28 PM EST 01/04/2012 3:28 PM EST Narrative Resulting Agency Comment Spec In Lab Sarthak Pollard MD HEMATOLOGY ORDERABLE S Performing Organization Address [facility] de Phone Number ARIAN CERDAIUM * (ABNORMAL) PROTHROMBIN TIME (01/04/2012 3:28 PM EST) Prothrombin Time 17.8(H) 11.9 - 14.7 sec CERNER MILLENNIUM Comment: [facility] Transfusion Committee Guidelines: INR less [...] mmHg CERNER MILLENNIUM Comment: Noted by instrument maker. MTF PO2, Arterial 296(H) mmHg CERNER MILLENNIUM Bicarbonate, Arterial 26.3(H) mmol/L CERNER MILLENNIUM Base Excess, Arterial 0.1 mmol/L CERNER MILLENNIUM Hgb Blood Gas 10.2(L) gm/dL CERNER MILLENNIUM Comment: Total Hemoglobin (in gm/dL) ?Based on [facility] Hematology ranges: ?Age ?Reference Range Less than [...] CARE TEST O RDERABLES Performing Organization Address [facility] Phone Number [facility] * FIBRINOGEN (01/04/2012 2:25 PM EST) Fibrinogen 356 200 - 470 mg/dL CERNER MILLENNIUM Comment:Called by: [facility], Read back by: AKANKSHA SAMPSON, Date/Time:01/04/12 14:49. Blood specimen (specimen) 01/04/2012 2:25 PM EST 01/04/2012 2:32 PM EST Narrative Resulting Agency Comment Spec In Lab Sarthak Pollard MD HEMATOLOGY ORDERABLE S Performing Organization Address [facility] Phone Number [facility] * PLATELET COUNT (01/04/2012 2:25 PM EST) Platelet 281 145 - 370 x10(3)/mcL CERNER MILLENNIUM Blood specimen (specimen) 01/04/2012 2:25 PM EST 01/04/2012 2:32 PM EST Narrative Resulting Agency Comment Spec In Lab Sarthak Pollard MD HEMATOLOGY ORDERABLE S Performing Organization Address [facility] Phone Number [facility] * (ABNORMAL) BLOOD GAS 2 ARTERIAL (01/04/2012 12:59 PM EST) pH, Arterial 7.36 CERNER MILLENNIUM PCO2, Arterial 48(H) mmHg CERNE R MILLENNIUM PO2, Arterial 197(H) mmHg CERNER MILLENNIUM Bicarbonate, Arterial 26.7(H) mmol/L CERNER MILLENNIUM Base Excess, Arterial 1.3 mmol/L CERNER MILLENNIUM Hgb Blood Gas 13.9 gm/dL CERNER MILLENNIUM Comment: Total Hemoglobin (in gm/dL) ?Based on [facility] Hematology ranges: ?Age ?Reference Range Less than [...] RDERABLES Performing Organization Address City/[facility] Co de Phone Number ARIAN CERDAIUM * Prepare Coag Factors (Non-Hemophilia) (01/04/2012 12:05 PM EST) Dispensed? Yes ARIAN CERDAIUM Blood specimen (specimen) 01/04/2012 12:05 PM EST 01/04/2012 12:01 PM EST Narrative Resulting Agency Comment Spec In Lab Inna Tovar MD BLOOD BANK PRODUCT O RDERABLES Performing Organization Address [facility] Co de Phone Number [...] 0.0 - 0.2 x10(3)/mc L CERNER MILLENNIUM [place] Absolute Manual 0.3(H) 0.0 - 0.0 x10(3)/mc [...] of Diabetes Mellitus, Position Statement from the [place] [employer]. ??Diabetes Care, Volume 33, Supplement [...] MD HEMATOLOGY ORDERABLE S Performing Organization Address [facility] de Phone Number CERNER MILLENNIUM * (ABNORMAL) APTT (01/04/2012 4:40 AM EST) Partial Thromboplastin Time 103(H) 25 - 35 sec CERNER MILLENNIUM Comment: Recommended therapeutic PTT range for full dose unfractionated heparin is 80-114 seconds. Blood specimen (specimen) 01/04/2012 4:40 AM EST 01/04/2012 4:52 AM EST Narrative Resulting Agency Comment Spec In Lab Sarthak Pollard MD HEMATOLOGY ORDERABLE S Performing Organization Address [facility] Phone Number CERNER MILLENNIUM * (ABNORMAL) APTT (01/03/2012 7:38 PM EST) Partial Thromboplastin Time 98(H) 25 - 35 sec CERNER MILLENNIUM Comment: Recommended therapeutic PTT range for full dose unfractionated heparin is 80-114 seconds. Blood specimen (specimen) 01/03/2012 7:38 PM EST 01/03/2012 7:53 PM EST Narrative Resulting Agency Comment Spec In Lab Sarthak Pollard MD HEMATOLOGY ORDERABLE S Performing Organization Address [facility] Phone Number CERNER MILLENNIUM * (ABNORMAL) APTT (01/03/2012 12:17 PM EST) Partial Thromboplastin Time 101(H) 25 - 35 sec CERNER MILLENNIUM Comment: Recommended therapeutic PTT range for full dose unfractionated heparin is 80-114 seconds. Blood specimen (specimen) 01/03/2012 12:17 PM EST 01/03/2012 12:26 PM EST Narrative Resulting Agency Comment Spec In Lab Sarthak Pollard MD HEMATOLOGY ORDERABLE S Performing Organization Address [facility] de Phone Number CERNER MILLENNIUM * (ABNORMAL) [...] MD HEMATOLOGY ORDERABLE S CERNER ROBYENNIUM * ANTIBODY SCREEN (01/03/2012 6:15 AM EST) Ab Screen Interp Negative CERNER MILLENNIUM Expires at [phone] on: [id number] CERNER MILLENNIUM Blood specimen (specimen) 01/03/2012 6:15 AM EST 01/03/2012 6:35 AM EST Narrative Resulting Agency Comment Spec In Lab Sarthak Pollard MD BLOOD BANK LAB ORDER RANDELL Performing Organization Address City/[facility]/ZIP Co de Phone Number [facility] * ABO/RH TYPING (01/03/2012 6:15 AM EST) ABORH Type A Pos [facility] Blood specimen (specimen) 01/03/2012 6:15 AM EST 01/03/2012 6:35 AM EST Narrative Resulting Agency Comment Spec In Lab Sarthak Pollard MD BLOOD BANK LAB ORDER RANDELL Performing Organization Address [facility] Co de Phone Number [facility] * (ABNORMAL) APTT (01/03/2012 6:15 AM EST) Partial Thromboplastin Time 96(H) 25 - 35 sec [facility] Comment: Recommended therapeutic PTT range for full dose unfractionated heparin is 80-114 seconds. Blood specimen (specimen) 01/03/2012 6:15 AM EST 01/03/2012 6:23 AM EST Narrative Resulting Agency Comment Spec In Lab Sarthak Pollard MD HEMATOLOGY ORDERABLE S Performing Organization Address [facility] de Phone Number [facility] * (ABNORMAL) BMP w/fasting Glucose (01/03/2012 6:15 AM EST) Glucose Fasting 116(H) 65 - 99 mg/dL [facility] Comment: ?Fasting* Glucose Interpretive Criteria Normal ?65-99 [...] of Diabetes Mellitus, Position Statement from the [place] [employer] Association. ??Diabetes Care, Volume 33, Supplement [...] MD HEMATOLOGY ORDERABLE S Performing Organization Address [facility] de Phone Number CERBRIAN MILLENNIUM * (ABNORMAL) APTT (01/02/2012 5:32 PM EST) Partial Thromboplastin Time 53(H) 25 - 35 sec CERNER MILLENNIUM Comment: Recommended therapeutic PTT range for full dose unfractionated heparin is 80-114 seconds. Blood specimen (specimen) 01/02/2012 5:32 PM EST 01/02/2012 5:38 PM EST Narrative Resulting Agency Comment Spec In Lab Sarthak Pollard MD HEMATOLOGY ORDERABLE S Performing Organization Address [facility] Phone Number CERBRIAN MILLENNIUM * (ABNORMAL) APTT (01/02/2012 11:56 AM EST) Partial Thromboplastin Time 46(H) 25 - 35 sec CERNER MILLENNIUM Comment: Recommended therapeutic PTT range for full dose unfractionated heparin is 80-114 seconds. Blood specimen (specimen) 01/02/2012 11:56 AM EST 01/02/2012 12:05 PM EST Narrative Resulting Agency Comment Spec In Lab Sarthak Pollard MD HEMATOLOGY ORDERABLE S Performing Organization Address [facility] Phone Number CERBRIAN MILLENNIUM * (ABNORMAL) DIFFERENTIAL, [...] [facility] [place]/ZIP Co de Phone Number ARIAN CAENNIUM * (ABNORMAL) APTT (01/02/2012 6:02 AM EST) [facility] Partial Thromboplastin Time 42(H) 25 - 35 sec CERNER MILLENNIUM Comment: Recommended therapeutic PTT range for full dose unfractionated heparin is 80-114 seconds. Blood specimen (specimen) 01/02/2012 6:02 AM EST 01/02/2012 6:29 AM EST Narrative Resulting Agency Comment Spec In Lab Sarthak Pollard MD HEMATOLOGY ORDERABLE S [facility] ROBYENNIUM * (ABNORMAL) BMP w/fasting Glucose (01/02/2012 6:02 AM EST) [facility] Glucose Fasting 113(H) 65 - 99 [...] of Diabetes Mellitus, Position Statement from the [place] Diabetes Association. ??Diabetes Care, Volume 33, Supplement [...] [facility] [place]/ZIP Co de Phone Number CERBRIAN CAENNIUM [...] MD HEMATOLOGY ORDERABLE S Performing Organization Address [facility] Co de Phone Number [...] MD HEMATOLOGY ORDERABLE S Performing Organization Address [facility] Phone Number [facility] PRASHANTIUM * APTT (01/01/2012 6:37 PM EST) Partial Thromboplastin Time 32 25 - 35 sec [facility] ZurshENNIUM Comment: Recommended therapeutic PTT range for full dose unfractionated heparin is 80-114 seconds. Blood specimen (specimen) 01/01/2012 6:37 PM EST 01/01/2012 6:43 PM EST Narrative Resulting Agency Comment Spec In Lab Sarthak Pollard MD HEMATOLOGY ORDERABLE S Performing Organization Address [facility] Phone Number [facility] MemoboxIUM * POCT GLUCOSE LAB USE ONLY (01/01/2012 12:02 PM EST) Glucose, POC 99 60 - 199 mg/dL [facility] Comment: Supplemental ranges: <110 mg/dL before meals <200 mg/dL all other times of the day Blood specimen (specimen) 01/01/2012 12:02 PM EST 01/01/2012 12:02 PM EST Andi Rene MD POINT OF CARE TEST O RDERABLES Performing Organization Address [facility] Phone Number ARIAN ZurshYARYIUM * (ABNORMAL) APTT (01/01/2012 11:59 AM EST) Partial Thromboplastin Time 108(H) 25 - 35 sec [facility] MILLENNIUM Comment: Recommended therapeutic PTT range for full dose unfractionated heparin is 80-114 seconds. Blood specimen (specimen) 01/01/2012 11:59 AM EST 01/01/2012 12:06 PM EST Narrative Resulting Agency Comment Spec In Lab Andi Rene MD HEMATOLOGY ORDERABLE S Performing Organization Address [facility] Phone Number ARIAN CERDAIUM * XR chest [...] Absolute 0.07(H) 0.00 - 0.05 x10(3)/mc L [facility] Blood specimen (specimen) 01/01/2012 5:19 AM EST 01/01/2012 5:36 AM EST Remigio Ceron MD HEMATOLOGY ORDERABLE S Performing Organization Address [facility] Co de Phone Number [facility] * (ABNORMAL) APTT (01/01/2012 5:19 AM EST) Partial Thromboplastin Time 105(H) 25 - 35 sec [facility] Comment: Recommended therapeutic PTT range for full dose unfractionated heparin is 80-114 seconds. Blood specimen (specimen) 01/01/2012 5:19 AM EST 01/01/2012 5:36 AM EST Narrative Resulting Agency Comment Spec In Lab Remigio Ceron MD HEMATOLOGY ORDERABLE S Performing Organization Address [facility] Phone Number [facility] * (ABNORMAL) BMP w/fasting Glucose (01/01/2012 5:19 AM EST) Glucose Fasting 121(H) 65 - 99 mg/dL [facility] Comment: ?Fasting* Glucose Interpretive Criteria Normal ?65-99 [...] of Diabetes Mellitus, Position Statement from the [place] Diabetes Association. ??Diabetes Care, Volume 33, Supplement [...] Andi eRne MD HEMATOLOGY ORDERABLE S [facility] * Upper Respiratory Culture Throat (12/31/2011 9:55 PM EST) Upper Respiratory Culture ? Patient Name: ZACK REYNA., GEOVANNA Llanos ? Ordered By: ANDI RENE ? MR#: [id number] ?LOC: ??[facility] ? /Sex: ??1975 (36 years), ? Male ? PROCEDURE: Upper Respiratory Culture ?SOURCE: Throat ? COLLECTED: 12/31/2011 21:55 ? STARTED: 12/31/2011 22:16 ? FINAL REPORT ? Final Report ? Verified:2011 08:12 ? Beta Hemolytic Streptococci, Group A isolated ? PRELIMINARY REPORT ? Preliminary Report ? Verified:2011 09:46 ? Beta Hemolytic Streptococci, Group A isolated ? [facility] Specimen from throat (specimen) 12/31/2011 9:55 PM EST 12/31/2011 10:16 PM EST Narrative Resulting Agency Comment Spec In Lab Andi Rene MD MICROBIOLOGY - GENER AL ORDERABLES [facility] * (ABNORMAL) APTT (12/31/2011 4:34 PM EST) Partial Thromboplastin Time 66(H) 25 - 35 sec [facility] Comment: Recommended therapeutic PTT range for full dose unfractionated heparin is 80-114 seconds. Blood specimen (specimen) 12/31/2011 4:34 PM EST 12/31/2011 4:39 PM EST Narrative Resulting Agency Comment Spec In Lab Andi Rene MD HEMATOLOGY ORDERABLE S Performing Organization Address City/[facility] Co de Phone Number [facility] * Duplex Study for DVT, Bilat legs (12/31/2011 11:07 AM EST) VB Text Report Department: Vascular Surgery Lab Patient: [id number] (GEOVANNA DIXON) CPT Code: 28257 ICD-9: 780.6 Referring Physician: ANDI RENE Indication: [...] 10:39 AM EST) Smear Review Report ? [facility] ? Provider: ?? ANDI RENE ?Pt. Name: ?? ZACK REYNA, GEOVANNA Llanos ? Acc #: ?[id number] ? Pt. ? Col Date: ?? 12/31/2011 [...] MD HEMATOLOGY ORDERABLE S Performing Organization Address [facility] Co de Phone Number [facility] * Lactate Dehydrogenase (12/31/2011 9:44 AM EST) Lactate Dehydrogenase 123 110 - 220 unit/L [facility] Blood specimen (specimen) 12/31/2011 9:44 AM EST 12/31/2011 10:12 AM EST Narrative Resulting Agency Comment Spec In Lab Andi Rene MD CHEMISTRY ORDERABLES Performing Organization Address [facility] Co tn Phone Number [facility] * Peripheral Smear Review (12/31/2011 9:44 AM EST) Peripheral Smear Review See Comment [facility] Comment: When completed by the Pathologist, report [id number] will display under Hematology Reports. Blood specimen (specimen) 12/31/2011 9:44 AM EST 12/31/2011 10:12 AM EST Narrative Resulting Agency Comment Spec In Lab Andi Rene MD HEMATOLOGY ORDERABLE S Performing Organization Address [facility] Phone Number [facility] * (ABNORMAL) APTT (12/31/2011 9:44 AM EST) Partial Thromboplastin Time 50(H) 25 - 35 sec [facility] Comment: Recommended therapeutic PTT range for full dose unfractionated heparin is 80-114 seconds. Blood specimen (specimen) 12/31/2011 9:44 AM EST 12/31/2011 10:12 AM EST Narrative Resulting Agency Comment Spec In Lab Andi Rene MD HEMATOLOGY ORDERABLE S Performing Organization Address [facility] Co de Phone Number [facility] * (ABNORMAL) DIFFERENTIAL, AUTOMATED (12/31/2011 3:38 AM [...] of Diabetes Mellitus, Position Statement from the [place] Diabetes Association. ??Diabetes Care, Volume 33, Supplement [...] Lab Andi Rene MD CHEMISTRY ORDERABLES [facility] * (ABNORMAL) CBC (with Diff) (12/31/2011 3:38 [...] MD HEMATOLOGY ORDERABLE S Performing Organization Address [facility]/ZIP Co de Phone Number ARIAN NELSON * [...] [facility] [place]/ZIP Co de Phone Number ARIAN CERDAIUM * EKG 12 Lead (12/30/2011 5:24 PM EST) Ventricular rate 107 BPM MUSE SYSTEM Atrial Rate 107 BPM MUSE SYSTEM P-R Interval 160 ms MUSE SYSTEM QRS Duration 104 ms MUSE SYSTEM Q-T Interval 310 ms MUSE SYSTEM QTC Calculated (Bezet) 413 ms MUSE SYSTEM Calculated P [place] 24 degrees MUSE SYSTEM Calculated R [place] 25 degrees MUSE SYSTEM Calculated T [place] 54 degrees MUSE SYSTEM INTERPRETATION Sinus tachycardia [...] JR ?Ordered By: ANDI RENE ? MR#: [id number] ?LOC: [facility] ? /Sex: ??1975 (36 years), [...] JR ?Ordered By: ANDI RENE ? MR#: [id number] ?LOC: ??[facility] ? /Sex: ??1975 (36 years), [...] ANTIBODY SCREEN (12/30/2011 4:25 PM EST) Pathologist [facility] Ab Screen Interp Negative CERNER MILLENNIUM Expires at [phone] on: [id number] CERNER MILLENNIUM Blood specimen (specimen) 12/30/2011 4:25 PM EST 12/30/2011 4:36 PM EST Narrative Resulting Agency Comment Spec In Lab Andi Rene MD BLOOD BANK LAB ORDER RANDELL Performing Organization Address [facility] Co de Phone Number CERBRIAN CAENNIUM * ABO/RH TYPING (12/30/2011 4:25 PM EST) ABORH Type A Pos CERNER MILLENNIUM Blood specimen (specimen) 12/30/2011 4:25 PM EST 12/30/2011 4:36 PM EST Narrative Resulting Agency Comment Spec In Lab Andi Rene MD BLOOD BANK LAB ORDER RANDELL Performing Organization Address [facility] de Phone Number CERBRIAN CAENNIUM * Glucose, random (12/30/2011 4:25 PM EST) Glucose 126 60 - 199 mg/dL [facility] MILLENNIUM Comment:Diabetes: >=200 mg/d L plus symptoms Blood specimen (specimen) 12/30/2011 4:25 PM EST 12/30/2011 4:43 PM EST Narrative Resulting Agency Comment Spec In Lab Andi Rene MD CHEMISTRY ORDERABLES Performing Organization Address [facility] de Phone Number CERBRIAN CAENNIUM * (ABNORMAL) CBC (with Diff) (12/30/2011 4:25 PM EST) White Blood Cell 18.8(H) 4.0 - 10.0 x10(3)/mc L CERNER MILLENNIUM Red Blood Cell 4.47(L) 4.63 - 6.08 x10(6)/mc L CERNER MILLENNIUM Hemoglobin 13.7 13.7 - 17.5 gm/dL [facility] MILLENNIUM Hematocrit 39.7(L) 40.0 - [...] Platelet Volume 10.5 9.0 - 12.0 fL [facility] MILLENNIUM Blood specimen (specimen) 12/30/2011 4:25 PM EST 12/30/2011 4:43 PM EST Narrative Resulting Agency Comment Spec In Lab Andi Rene MD HEMATOLOGY ORDERABLE S Performing Organization Address [facility] de Phone [facility] * APTT (12/30/2011 2:08 PM EST) Partial Thromboplastin Time 31 25 - 35 sec [facility] Comment: Recommended therapeutic PTT range for full dose unfractionated heparin is 80-114 seconds. Blood specimen (specimen) 12/30/2011 2:08 PM EST 12/30/2011 2:27 PM EST Narrative Resulting Agency Comment Spec In Lab Andi Rene MD HEMATOLOGY ORDERABLE S Performing Organization Address [facility] Co de Phone Number [facility] * Cardiac Enzymes (12/30/2011 2:08 PM EST) Troponin-T 0.03 <=0.03 ng/mL [facility] Comment: 0.03 ng/mL: Represents the 99th percentile [...] consensus document of the Joint Society of Cardiology/[place] College [employer] Committee for the redefinition of myocardial infarction. Journal of the [place] College of Cardiology 2000; 36: 959-969] Creatine Kinase 72 0 - 200 unit/L ARIAN NELSON Blood specimen (specimen) 12/30/2011 2:08 PM EST 12/30/2011 2:27 PM EST Narrative Resulting Agency Comment Spec In Lab Remigio Ceron MD CHEMISTRY ORDERABLES Performing Organization Address [facility] Co de Phone Number [facility] * HIV (12/30/2011 10:18 AM EST) HIV 1/2 Ab Negative [facility] Blood specimen (specimen) 12/30/2011 10:18 AM EST 12/30/2011 10:28 AM EST Narrative Resulting Agency Comment Spec In Lab Andi Rene MD CHEMISTRY ORDERABLES Performing Organization Address [facility] de Phone Number [facility] * Echo Transthoracic (Complete) (12/30/2011 9:47 AM EST) EF 55 HEART[facility] SYSTEM Anatomical Region Laterality Modality Other 12/30/2011 Narrative 12/30/2011 10:02 AM EST Procedure: ? Transthoracic Echocardiogram Patient: ? ZACK AUSTIN P ?(Age): 1975(36) Med Rec#: ?[id number] ? Sex: ?M ? [place] [place] Ht / Wt: ??180(cm)/124(kg) Pt. Loc: ? Adult Floor ?BSA: ?2.41 Study Date: ?12/30/2011 ? Pt. Type: Inpatient Tape: ? Referring: Remigio Ceron Almond Paste Molder: Benjamin Lundberg Diagnosis: ??Chest pain (786.50) CPT Code(s): ??Spectral Doppler (75106), ??Color Doppler (99628), ??Echo Full (91435), Indication(s): ??Chest Pain Rhythm: HR ?BP ?106/60 [...] 12/30/2011 10:01:28 Images reviewed and interpretation verified [facility] Cardiac Ultrasound Laboratory Procedure Note Zak Coley MD - 12/30/2011 Procedure: Transthoracic Echocardiogram Patient: ZACK MILLIGAN(Age): 1975(36) Med Rec#: [id number] Sex: M [place] [facility] Ht / Wt: 180(cm)/124(kg) Pt. Loc: Adult Floor BSA: 2.41 Study Date: 12/30/2011 Pt. Type: Inpatient Tape: Referring: Remigio Ceron Almond Paste Molder: Benjamin Lundberg Diagnosis: Chest pain (786.50) CPT Code(s): Spectral Doppler (35124), Color Doppler (99300), Echo Full (67442), Indication(s): Chest Pain Rhythm: HR BP 106/60 [...] 12/30/2011 10:01:28 Images reviewed and interpretation verified [facility] Cardiac Ultrasound Laboratory Remigio Ceron MD [...] Urine Dipstick Clear Clear CERNER MILLENNIUM Specific [place] Urine Automated 1.019 1.002 - 1.030 CERNER [...] In Lab Andi Rene MD URINE [facility]ABLES [facility] * Rapid Qual Drug Screen, Urine ([facility]) (12/30/2011 9:32 AM EST) Pathologist [facility] U IVAN Screen See Note CERNER MILLENNIUM [...] testing device is being used in the [facility] Chemistry Laboratory. Please contact the chemistry laboratory at [phone] with questions. Urine specimen (specimen) 12/30/2011 9:32 AM EST 12/30/2011 9:45 AM EST Narrative Resulting Agency Comment Spec In Lab Andi Rene MD URINE ORDERABLES Performing Organization Address City/State/[facility] Co tn Phone Number [facility] * Urine culture Clean Catch Urine (12/30/2011 9:31 AM EST) Urine Culture ? Patient Name: GEOVANNA DIXON JR ?Ordered By: ANDI RENE ? MR#: [id number] ?LOC: ??[facility] ? /Sex: ?? 4 (36 [...] MD HEMATOLOGY ORDERABLE S Performing Organization Address [facility] Co de Phone Number ARIAN NELSON * Hemoglobin A1c (12/30/2011 7:07 AM EST) Hemoglobin A1c 6.1 4.3 - 6.1 % [facility] Estimated Average Glucose 128 mg/dL [facility] Comment: eAG equivalents for HbA1c percentages: HbA1c(%) [...] into estimated average glucose values. ??Diabetes Care 2008:31(8):9415-2163. Blood specimen (specimen) 12/30/2011 7:07 AM EST 12/30/2011 7:18 AM EST Narrative Resulting Agency Comment Spec In Lab Remigio Ceron MD CHEMISTRY ORDERABLES Performing Organization Address [facility] Co de Phone Number ARIAN NELSON * (ABNORMAL) APTT (12/30/2011 5:45 AM EST) Partial Thromboplastin Time 45(H) 25 - 35 sec [facility] Comment: Recommended therapeutic PTT range for full dose unfractionated heparin is 80-114 seconds. Blood specimen (specimen) 12/30/2011 5:45 AM EST 12/30/2011 6:10 AM EST Narrative Resulting Agency Comment Spec In Lab Andi Rene MD HEMATOLOGY ORDERABLE S Performing Organization Address [facility] Co de Phone Number [facility] * (ABNORMAL) Glucose, fasting (12/30/2011 5:45 AM EST) Glucose Fasting 108(H) 65 - 99 mg/dL [facility] Comment: ?Fasting* Glucose Interpretive Criteria Normal ?65-99 [...] of Diabetes Mellitus, Position Statement from the [place] Diabetes Association. ??Diabetes Care, Volume 33, Supplement 1, Nov 2009 Blood specimen (specimen) 12/30/2011 5:45 AM EST 12/30/2011 6:10 AM EST Narrative Resulting Agency Comment Spec In Lab Remigio Ceron MD CHEMISTRY ORDERABLES Performing Organization Address [facility]/State/ZIP Co de Phone Number [facility] * (ABNORMAL) Triglyceride (12/30/2011 5:45 AM EST) Triglyceride 245(H) <=149 mg/dL [facility] Comment: Reference Range: Normal triglycerides: ??<150 mg/dL Borderline high: ??150-199 mg/dL High: ??200-499 mg/dL Very high: ??>wu=299 mg/dL ELISEO 2001; 285(19):6468-7079 Blood specimen (specimen) 12/30/2011 5:45 AM EST 12/30/2011 6:10 AM EST Narrative Resulting Agency Comment Spec In Lab Remigio Ceron MD CHEMISTRY ORDERABLES Performing Organization Address [facility] Co de Phone Number [facility] * (ABNORMAL) HDL/Cholesterol Profile (12/30/2011 5:45 AM EST) Cholesterol, Total 170 <=199 mg/dL [facility] Comment: Recommendations of the NCEP Adult Treatment Panel for the following risk cutoff thresholds for the [place] population: Desirable: <200 mg/dL Borderline High: 200-239 mg/dL High: > or = 240 mg/dL HDL Cholesterol 36(L) >=40 mg/dL [facility] Comment: Reference range: ??Low HDL: ?? < 40 mg/dL ??Normal: ?40-60 mg/dL ??Desirable: > 60 mg/dL ELISEO 2001; 285(19):8781-6988 Cholesterol/HDL Ratio 4.7 ratio [facility] Comment: A Cholesterol to HDL ratio below 4:1 is desirable. ??Studies suggest that increased CAD risk occurs at ratios above 5 for females and above 6 for men. ? [place] Heart Association ??(http://www.americanheart.org) ? Jazmine Int Med, 1994; 121:641 ? AM J Med, 1998; 105(1A):48S Blood specimen (specimen) 12/30/2011 5:45 AM EST 12/30/2011 6:10 AM EST Narrative Resulting Agency Comment Spec In Lab Remigio Ceron MD CHEMISTRY ORDERABLES Performing Organization Address [facility] Co de Phone Number [facility] * (ABNORMAL) LDL Cholesterol, Direct (12/30/2011 5:45 AM EST) LDL Cholesterol, Direct 110(H) <=99 mg/dL [facility] Comment: The National Cholesterol Education Program (NCEP) has set the following guidelines for LDL Cholesterol: Reference range: ?? Optimal: ?<100 mg/dL ?? Near Optimal/Above Optimal: ?? 100-129 mg/dL ?? Borderline high: ?130-159 mg/dL ?? High: ? 160-189 mg/dL ?? Very high: ?>cm=146 mg/dL ELISEO 2001: 285(84):5314-8172 Blood specimen (specimen) 12/30/2011 5:45 AM EST 12/30/2011 6:10 AM EST Narrative Resulting Agency Comment Spec In Lab Remigio Ceron MD CHEMISTRY ORDERABLES [facility] * (ABNORMAL) Cardiac Enzymes (12/30/2011 5:45 AM EST) [facility] Troponin-T 0.05(H) <=0.03 ng/mL [facility] Comment: 0.03 ng/mL: Represents the 99th percentile [...] consensus document of the Joint Society of Cardiology/[place] College [employer] Cardiology Committee for the redefinition of myocardial infarction. Journal of the [place] College of Cardiology 2000; 36: 959-969] Creatine [...] consensus document of the Joint Society of Cardiology/[place] College [employer] Cardiology Committee for the redefinition of myocardial infarction. Journal of the [place] College of Cardiology 2000; 36: 959-969] Creatine Kinase 86 0 - 200 unit/L ARIAN NELSON Blood specimen (specimen) 12/29/2011 11:29 PM EST 12/29/2011 11:34 PM EST Narrative Resulting Agency Comment Spec In Lab Remigio Ceron MD CHEMISTRY ORDERABLES ARIAN NELSON * Prothrombin Time (12/29/2011 11:29 PM EST) Prothrombin Time 13.2 11.9 - 14.7 sec ARIAN NELSON Comment: [facility] Transfusion Committee Guidelines: INR less [...] MD HEMATOLOGY ORDERABLE S Performing Organization Address [facility] Co de Phone Number [facility] PRASH[facility] * Hepatic Function Panel [...] Ceron MD CHEMISTRY ORDERABLES Performing Organization Address [facility] [place]/[facility] Co de Phone Number ARIAN CERDAIUM * pro-Brain Natriuretic Peptide (12/29/2011 11:29 PM EST) NT-proBNP 114 <=125 pg/mL [facility] CA[facility] Blood specimen (specimen) 12/29/2011 11:29 PM EST 12/29/2011 11:34 PM EST Narrative Resulting Agency Comment Spec In Lab Remigio Ceron MD CHEMISTRY ORDERABLES Performing Organization Address [facility] [place]/[facility] Co de Phone Number [facility]AN [facility] * TSH (12/29/2011 11:29 PM EST) Thyroid Stimulating Hormone 0.39 0.27 - 4.20 mcIU/mL [facility] ROBY[facility] Blood specimen (specimen) 12/29/2011 11:29 PM EST 12/29/2011 11:34 PM EST Narrative Resulting Agency Comment Spec In Lab Remigio Ceron MD CHEMISTRY ORDERABLES Performing Organization Address [facility] [place]/[facility] Co de Phone Number ARIAN CERDAIUM * Phosphorus (12/29/2011 11:29 PM EST) Phosphorus 3.1 2.5 - 4.5 mg/dL CERNER MILLENNIUM Blood specimen (specimen) 12/29/2011 11:29 PM EST 12/29/2011 11:34 PM EST Narrative Resulting Agency Comment Spec In Lab Remigio Ceron MD CHEMISTRY ORDERABLES Performing Organization Address [facility] [place]/[facility] Co de Phone Number ARIAN CERDAIUM * Magnesium (12/29/2011 11:29 PM EST) Pathologist [facility] Magnesium 0.83 0.69 - 1.07 mmol/L [facility] MILLEN[facility] Blood specimen (specimen) 12/29/2011 11:29 PM EST 12/29/2011 11:34 PM EST Narrative Resulting Agency Comment Spec In Lab Remigio Ceron MD CHEMISTRY ORDERABLES Performing Organization Address [facility] [place]/[facility] de Phone Number ARIAN CERDAIUM * (ABNORMAL) Basic Metabolic Panel (non-fasting) (12/29/2011 11:29 PM EST) Pathologist [facility] Glucose 163 60 - 199 mg/dL CERNER [...] MILLENNIUM Hemoglobin 13.9 13.7 - 17.5 gm/dL [facility] MILLENNIUM Hematocrit 39.6(L) 40.0 - 51.0 % [facility] MILL[facility] Mean Cell Volume 88.0 79.0 - 92.0 fL [facility] MILL[facility] Mean Cell Hemoglobin 30.9 25.6 - 32.2 pg [facility] MILLENNIUM Mean Cell Hemoglobin Concentration 35.1 32.0 - 36.5 gm/dL [facility] MILLENNIUM Platelet 221 145 - 370 x10(3)/mc L [facility] MILL[facility] RDW Standard Deviation 42.0 35.0 - 46.0 fL [facility] MILLEN[facility] RDW coefficient of variation 13.0 10.9 - 14.4 % [facility] MILLENNIUM Mean Platelet Volume 10.5 9.0 - 12.0 fL [facility] Blood specimen (specimen) 12/29/2011 11:29 PM EST 12/29/2011 11:34 PM EST Narrative Resulting Agency Comment Spec In Lab Remigio Ceron MD HEMATOLOGY ORDERABLE S Performing Organization Address [facility] [place]/[facility] de Phone Number [facility] * APTT (12/29/2011 11:29 PM EST) Partial Thromboplastin Time 34 25 - 35 sec [facility] Comment: Recommended therapeutic PTT range for full dose unfractionated heparin is 80-114 seconds. Blood specimen (specimen) 12/29/2011 11:29 PM EST 12/29/2011 11:34 PM EST Narrative Resulting Agency Comment Spec In Lab Remigio Ceron MD HEMATOLOGY ORDERABLE S Performing Organization Address [facility] [place] de Phone Number [facility] * EKG 12 Lead (12/29/2011 11:13 PM EST) Ventricular rate 108 BPM MUSE SYSTEM Atrial Rate 108 BPM MUSE SYSTEM P-R Interval 150 ms MUSE SYSTEM QRS Duration 106 ms MUSE SYSTEM Q-T Interval 340 ms MUSE SYSTEM QTC Calculated (Bezet) 455 ms MUSE SYSTEM Calculated P [place] 19 degrees MUSE SYSTEM Calculated R [place] 31 degrees MUSE SYSTEM Calculated T [place] 51 degrees MUSE SYSTEM INTERPRETATION Sinus tachycardia [...] Hermila Dumas RN) 0100 (Given - Provider: Hermlia Dumas RN)0325 (Given - Provider: Hermila Dumas [...] Routine documented in this encounter Care Teams Numerical Control Lathe Operator Relationship Specialty Start Date End Date Patric Al MD PCP - General 12/29/11 02/26/19 documented as of this encounter
--- OUTSIDE RECORDS SUMMARY | 2024-10-31 17:13 | XMS_ITS | Referral Summary ---
Author Organization [facility] Address [address] [place] [address] Care Team Providers Care Research Programmer Name Role Phone JorgeCameron Viet MANAGER FIBER Primary Care Provider [phone] Medications LOSARTAN POTASSIUM (COZAAR ORAL) Take by [...] C Antibody Negative Negative 12/04/2022 8:56 EST [facility] Blood VENOUS BLOOD / Unknown 12/02/2022 11:40 EST 12/03/2022 17:36 EST us Provider Outr Resulting Lab CHEMISTRY & BLOOD GA S ORDERABLES Final Result [facility] [address] [place] [address] from Last 3 Months or Most Recently Relevant to Health Maintenance Care Teams Research Programmer Relationship Specialty Start Date End Date Cameron Patel, MANAGER FIBER [address] [facility] [place] [phone] PCP - General 10/22/09
--- OUTSIDE RECORDS SUMMARY | 2024-10-31 17:13 | XMS_ITS | Encounter Summary ---
Author Organization [facility] Address [address] [place] [address] Care Team Providers Care Youth Officer Name Role Phone Cameron Patel NETSUITE CONSULTANT Primary Care Provider [phone] Encounter Details Date Type Department Care Team (Late st Contact Info) Description 11/23/2005 Office Visit [facility] - Maple conversion [address] [place] [address] Jorge Urrutia MD [address] [place] [address] Social History Tobacco Use Types [...] similar symptoms. Diagnosed as dental caries. ( [facility] ED - given ibuprofen.). REVIEW OF [...] pain. No fever or nasal discharge. 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 Symptoms did not [...] filling fell out. Called dentist, Dr. [facility]- couldn't get appt untill next week.). [...] followup. Patientverbalized understanding. Written instructions provided in Romansh. The patient was discharged home. The patient left the Emergency Department ambulatory and via private vehicle. Patient driving. Patient has no belongings. Departure time: 15:23. --1523 Annette Collazo R.N. Locked/Released at 11/23/2005 15:23 by Annette Collazo R.N. documented in this encounter Plan of Treatment Not on file documented as of this encounter Visit Diagnoses Not on filedocumented in this encounter Care Teams Youth Officer Relationship Specialty Start Date End Date Cameron Patel, NETSUITE CONSULTANT [address] [place] [phone] PCP - General 10/22/09 documented as of this encounter
--- OUTSIDE RECORDS SUMMARY | 2024-10-31 17:13 | XMS_ITS | Encounter Summary ---
Author Organization [facility] Address [address] [place] [address] Care Team Providers Care Crm Functional Analyst Name Role Phone Unavailable Primary Care Provider Unavailabl e Encounter Details Date Type Department Care Team (Late st Contact Info) Description 03/09/2008 Before PRISM Converted Visit (Maple) [facility] - Maple conversion [address] [place] [address] Wil Tay MD [address] [address] Social History Tobacco Use Types [...] EDT March 09, 2008 Anna Hoang MD [facility] [address] [address] Dear Anna: Thank you for referring Mr. [...] and an EEG that was normal in [place], [place]. He currently is taking a [...] He denies symptoms of restless legs. His [place] sleepiness is 23/24. PAST MEDICAL HISTORY Hypertension. He has just recently developed hypertension. He did not respond well to lisinopril, so he is currently on Cozaar and this has been helping his blood pressure some. It has not worsened his cataplexy any. ALLERGIES No known drug allergies. MEDICATIONS Cozaar, methylphenidate, amphetamine, clomipramine, Provigil, Effexor, Viagra, Rolaids, and Tylenol. SOCIAL HISTORY He has a [id number] history of smoking, which is a lot for a young man like him. He drinks 8-12 cups of coffee a day. No other caffeine intake. No alcohol. No drug use. 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 Coordination: Normal [id number] and aysmqt-ge-iqjt and rapid alternating movements. DTRs are +2 [...] his hometown. 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, [place] [address]* documented in this encounter Plan of Treatment Not on file documented as of this encounter Visit Diagnoses Not on filedocumented in this encounter
--- OUTSIDE RECORDS SUMMARY | 2024-10-31 17:13 | XMS_ITS | Encounter Summary ---
Author Organization [facility] Address [address] [place] [address] Care Team Providers Care Web Editor Name Role Phone JorgeCameron Viet ELECTRONIC MASKING SYSTEM OPERATOR Primary Care Provider [phone] Encounter Details Date Type Department Care Team (Late st Contact Info) Description 10/02/2020 Lab Requisition [facility] Pathology & Laboratory Medicine - [address] [address] Outr Resulting Lab, Provider Social History Tobacco [...] 4th Generation Negative Negative 10/22/2020 13:59 EST [facility] Comment: If acute HIV-1 infection is suspected in a high risk ??patient, submit plasma specimen for HIV-1 RNA quantitation test. Fourth Generation assay performed on the Siemens Centaur. Blood VENOUS BLOOD / Unknown 09/19/2020 16:00 EST 10/22/2020 7:12 EST us Provider Outr Resulting Lab IMMUNOLOGY AND SEROL OGY ORDERABLES Final Result [facility] [address] [place] [address] documented in this encounter Visit Diagnoses Not on filedocumented in this encounter Care Teams Web Editor Relationship Specialty Start Date End Date Cameron Patel, ELECTRONIC MASKING SYSTEM OPERATOR [address] [facility] [place] [phone] PCP - General 10/22/09 documented as of this encounter
--- OUTSIDE RECORDS SUMMARY | 2024-10-31 17:13 | XMS_ITS | Clinical Summary ---
Author Organization [facility] Address [address] [place] [address] Care Team Providers Care Operating Room Specialist Name Role Phone Cameron Patel Viet STOCK ROLLER Primary Care Provider [phone] Medications LOSARTAN POTASSIUM (COZAAR ORAL) Take by [...] C Antibody Negative Negative 12/04/2022 8:56 EST [facility] Blood VENOUS BLOOD / Unknown 12/02/2022 11:40 EST 12/03/2022 17:36 EST us Provider Outr Resulting Lab CHEMISTRY & BLOOD GA S ORDERABLES Final Result [facility] [address] [place] [address] from Last 3 Months or Most Recently Relevant to Health Maintenance Care Teams Operating Room Specialist Relationship Specialty Start Date End Date Cameron Patel, STOCK ROLLER [address] [place] [phone] PCP - General 10/22/09
[2024-10-31 17:33] LABS: Abs Immature Grans 0.04 10^3/uL (0.0-0.06); Absolute Basophil Count 0.08 10^3/uL (0.0-0.2); Absolute Eosinophil Count 0.15 10^3/uL (0.0-0.7); Absolute Lymphocyte Count 1.82 10^3/uL (1.2-3.4); Absolute Monocyte Count 0.61 10^3/uL (0.1-0.8); Absolute Neutrophil Count 7.38 10^3/uL (1.2-6.7); Basophils % 0.8 %; Eosinophils % 1.5 %; HCT 35.9 % (40.0-50.0); HGB 11.7 g/dL (13.5-17.5); Immature Grans % 0.4 %; Lymphocytes % 18.1 %; MCH 28.6 pg (27.0-33.0); MCHC 32.6 % (32.0-36.0); MCV 88 fL (80-95); MPV 9.1 fL (8.0-11.0); Monocytes % 6.1 %; Neutrophils % 73.1 %; Platelet Count 301 10^3/uL (130-400); RBC 4.09 10^6/uL (4.36-5.78); RDW 13.4 % (11.8-14.1); RDW-SD 43.2 fL; WBC 10.08 10^3/uL (4.4-10.8)
[2024-10-31 17:34] LABS: BE (Venous) 1 mmol/L (-2-3); HCO3 (Venous) 26 mmol/L (23-28); O2 Sat (Venous) 80 %; TCO2 (Venous) 24 mmol/L (24-29); pCO2 (Venous) 42 mmHg (41-51); pH (Venous) 7.39 (7.31-7.41); pO2 (Venous) 44 mmHg
[2024-10-31 17:36] LABS: Lactate 2.2 mmol/L (0.6-1.4)
[2024-10-31 17:41] LABS: ESR 52 mm/hr (0-15)
[2024-10-31] MEDS: Omnipaque 350 MG/ML 100 ML BTL IJ (17:44)
[2024-10-31] MEDS: Normal Saline - Diluent 50 ML VIAL IJ (17:45)
[2024-10-31 17:51] LABS: ALT 17 U/L (16-63); AST 6 U/L (15-37); Albumin 2.9 g/dL (3.4-5.0); Alkaline Phosphatase 145 U/L (46-116); Anion Gap 10.4 mmol/L (3-11); BUN 11 mg/dL (7-18); Bilirubin, Total 0.11 mg/dL (0.2-1.0); C-Reactive Protein 2.83 mg/dL (<or=0.5); CO2 25.6 mmol/L (21.0-32.0); CREATININE 0.9 mg/dL (0.70-1.30); Calcium 8.9 mg/dL (8.5-10.1); Chloride 100 mmol/L (98-107); Estimated GFR 104.05 (mL/min/1.73m2); Glucose 250 mg/dL (74-106); Magnesium 1.6 mg/dL (1.8-2.4); Potassium 3.9 mmol/L (3.5-5.1); Sodium 136 mmol/L (136-145); Total Protein 7.6 g/dL (6.4-8.2)
[2024-10-31 17:54] LABS: PTT Activated 28.2 sec (23.6-32.8)
[2024-10-31 18:02] LABS: Procalcitonin < 0.10 ng/mL
--- NOTE | 2024-10-31 18:02 | DI.CT_ITS ---
Exam(s) CT LOWER EXTREMITY LT W EXAM: CT LOWER EXTREMITY LT W CLINICAL HISTORY: recent arterial graft with abscess, erythema. TECHNIQUE: Imaging Protocol: Axial computed tomography images with coronal and sagittal reformatted images were created and reviewed. CONTRAST MATERIAL: Intravenous: Omnipaque 350 Contrast volume:100 ml Contrast route:IV - COMPARISON: CT CT LOWER EXTREMITY LT W from 09/26/[address] LOWER EXTREMITY RT W from 09/26/2024 FINDINGS: Exam is limited by motion in the mid thigh region. Bones: There is no evidence of fracture or dislocation. No cellulitic or osteomyelitic changes are identified. No lytic or sclerotic lesions are identified. Joints: There is no significant joint space narrowing. Soft Tissues: New anterior surgical wound at the inguinal region. Surgical drain noted in region of previous abscess with significant decrease in size. The previously noted femoral artery bypass graft has been removed. There has been improvement in the previously visualized surrounding fluid collect ion. New collection in the anteromedial mid thigh, abscess versus seroma or hematoma measuring 4.5 x 2 x 3 cm. New surgical defect noted at the medial aspect of the distal thigh and upper calf region. Improvemen t in the or area of surrounding abscess. A residual abscess is not excluded. The most inferior port ion of this region is not included in the field of view of this study. Medial skin cameron. IMPRESSION: Significant interval improvement in previously noted abscess along the femoral bypass graft which has been removed. Surgical drain in place in the inguinal region.. Residual abscess collection versus seroma. New collection in the anteromedial mid thigh. Postsurgical defect at the upper calf not fully included on the exam. RADIATION DOSE DELIVERED: Total DLP DATA REPOSITORY: All CT scans at this facility are submitted to the National Radiology Data Registry (NRDR) Dose Index Registry (DIR) with the [employer] (ACR). RADIATION OPTIMIZATION: All CT scans at this facility use at least one of these dose optimization te chniques: automated exposure control; mA and/or kV adjustment per patient size (includes targeted exa ms where dose is matched to clinical indication); or iterative reconstruction.
[2024-10-31] MEDS: Magnesium Oxide 400 MG TAB 800 MG PO (18:34)
[2024-10-31] MEDS: Losartan 50 MG TAB PO (18:48)
[2024-10-31] MEDS: amLODIPine 5 MG TAB PO (18:48)
--- NOTE | 2024-10-31 19:50 | DI.VRAD_ITS ---
PROCEDURE INFORMATION: Exam: CT Left Lower Extremity Exam date and time: 10/31/2024 5:42 PM Age: 49 years old Clinical indication: Other: Abscess, erytherma; Prior surgery; Surgery date: 1-6 months; Patient HX: Recent arterial graft with abscess, erythema TECHNIQUE: Imaging protocol: CT of the left lower extremity with intravenous contrast was performed. Radiation optimization: All CT scans at this facility use at least one of these dose optimization techniques: automated exposure control; mA and/or kV adjustment per patient size (includes targeted exams where dose is matched to clinical indication); or iterative reconstruction. Contrast material: [id number]; Contrast volume: 100 ml; Contrast route: INTRAVENOUS (IV); COMPARISON: No relevant prior studies available. FINDINGS: Limitations: Study mildly limited by motion artifact within the mid thigh region. Tubes, catheters and devices: Surgical drain within the left anterior thigh/inguinal region soft tissues, with marked reduction in previously described abscess in this region, with residual collection measuring approximately 3.7 x 2.7 cm (series 11, image 70). Bones/joints: Normal. No acute fracture or dislocation. Soft tissues: Surgical defect within the anteromedial superficial proximal and mid thigh soft tissues. 4.4 cm cephalocaudal by 2 x 3 cm AP x 2.8 cm transverse, ill-defined hypodense collection within the anteromedial mid thigh soft tissues (series 11, image 161), likely abscess, new from comparison study. 4.2 x 0.4 cm linear hypodense collection within the posteromedial soft tissues of the distal thigh (series 11, image 222), possibly postoperative seroma versus phlegmon/abscess. Partially visualized ill-defined complex fluid collection measuring approximately 2.1 x 1.7 cm, within the posteromedial aspect of the proximal calf (series 11, images 282-304), possibly postop seroma versus phlegmon/abscess. Vasculature: Atherosclerotic vascular disease. Left femoral artery surgical bypass graft has been removed. Previously visualized fluid collection surrounding the graft material has resolved. Atherosclerotic vascular disease. Reproductive: Vasectomy clips. IMPRESSION: 1. Surgical drain within the left anterior thigh/inguinal region soft tissues, with marked reduction in previously described abscess in this region, with residual collection measuring approximately 3.7 x 2.7 cm (series 11, image 70). 2. 4.4 cm cephalocaudal by 2 x 3 cm AP x 2.8 cm transverse, ill-defined hypodense collection within the anteromedial mid thigh soft tissues (series 11, image 161), likely abscess, new from comparison study. 3. Left femoral artery surgical bypass graft has been removed. Previously visualized fluid collection surrounding the graft material has resolved. 4. 4.2 x 0.4 cm linear hypodense collection within the posteromedial soft tissues of the distal thigh (series 11, image 222), possibly postoperative seroma versus phlegmon/abscess. 5. Partially visualized ill-defined complex fluid collection measuring approximately 2.1 x 1.7 cm, within the posteromedial aspect of the proximal calf (series 11, images 282-304), possibly postop seroma versus phlegmon/abscess. Dictated and Authenticated by: Cornelius Post MD. Ordering:MEAGHAN Alexander MD
== END 2024-10-31 20:01 | disposition left against medical advice (07) ==
PROVIDERS: Emergency Provider Emergency Medicine; PCP Student in an Organized Health Care Education/Training Program
DX: M79.652 Pain in left thigh (principal); L53.9 Erythematous condition, unspecified; Z98.890 Other specified postprocedural states; Z95.1 Presence of aortocoronary bypass graft; Z95.5 Presence of coronary angioplasty implant and graft; Z79.4 Long term (current) use of insulin; Z79.84 Long term (current) use of oral hypoglycemic drugs; Z79.85 Long-term (current) use of injectable non-insulin antidiabetic drugs; Z79.82 Long term (current) use of aspirin; Z87.891 Personal history of nicotine dependence; Z53.29 Procedure and treatment not carried out because of patient's decision for other reasons
CPT/HCPCS: 80053; 82805; 84145; 85652; 87040; 99283; 99285; 73701; 83605; 83735; 85025; 85610; 85730; 86140; 99284; J3490

== ENCOUNTER 2024-11-06 17:57 | Outpatient (REF) | payer OTHER, MEDICAID, SELFPAY ==
[2024-11-06 18:37] LABS: Abs Immature Grans 0.05 10^3/uL (0.0-0.06); Absolute Basophil Count 0.08 10^3/uL (0.0-0.2); Absolute Eosinophil Count 0.22 10^3/uL (0.0-0.7); Absolute Lymphocyte Count 2.04 10^3/uL (1.2-3.4); Absolute Monocyte Count 0.62 10^3/uL (0.1-0.8); Absolute Neutrophil Count 6.95 10^3/uL (1.2-6.7); Basophils % 0.8 %; Eosinophils % 2.2 %; HCT 39.5 % (40.0-50.0); HGB 12.6 g/dL (13.5-17.5); Immature Grans % 0.5 %; Lymphocytes % 20.5 %; MCH 28.5 pg (27.0-33.0); MCHC 31.9 % (32.0-36.0); MCV 89 fL (80-95); MPV 9.6 fL (8.0-11.0); Monocytes % 6.2 %; Neutrophils % 69.8 %; Platelet Count 504 10^3/uL (130-400); RBC 4.42 10^6/uL (4.36-5.78); RDW 13.6 % (11.8-14.1); RDW-SD 44.4 fL; WBC 9.96 10^3/uL (4.4-10.8)
[2024-11-06 18:49] LABS: ALT 21 U/L (16-63); AST 11 U/L (15-37); Albumin 3.5 g/dL (3.4-5.0); Alkaline Phosphatase 150 U/L (46-116); Anion Gap 9.4 mmol/L (3-11); BUN 12 mg/dL (7-18); Bilirubin, Total 0.13 mg/dL (0.2-1.0); CO2 27.6 mmol/L (21.0-32.0); CREATININE 0.8 mg/dL (0.70-1.30); Calcium 9.6 mg/dL (8.5-10.1); Chloride 101 mmol/L (98-107); Creatine Kinase 56 U/L (39-308); Estimated GFR 107.82 (mL/min/1.73m2); Glucose 226 mg/dL (74-106); Potassium 4.9 mmol/L (3.5-5.1); Sodium 138 mmol/L (136-145); Total Protein 7.8 g/dL (6.4-8.2)
== END 2024-11-06 17:58 | disposition home or self-care (01) ==
LOC: LBN 17:57
PROVIDERS: PCP Student in an Organized Health Care Education/Training Program; Visit Provider Internal Medicine Infectious Disease
DX: T82.7XXA Infection and inflammatory reaction due to other cardiac and vascular devices, implants and grafts, initial encounter (principal)
CPT/HCPCS: 80053; 82550; 85025

== ENCOUNTER 2025-04-18 18:33 | Outpatient (REF) | payer MEDICARE, SELFPAY ==
[2025-04-18 22:07] LABS: Cholesterol 274 mg/dL (<200); HDL Cholesterol 35 mg/dL (>or=40); Triglyceride 570 mg/dL (<150); Vitamin D 25 Total 12 ng/mL (30-100)
[2025-04-18 23:29] LABS: LDL CHOLESTEROL 164 mg/dL (<100)
== END 2025-04-18 18:34 | disposition home or self-care (01) ==
LOC: NCHCN 18:33
PROVIDERS: PCP Student in an Organized Health Care Education/Training Program; Visit Provider Student in an Organized Health Care Education/Training Program
DX: E78.5 Hyperlipidemia, unspecified (principal); E55.9 Vitamin D deficiency, unspecified
CPT/HCPCS: 80061; 82306; 83721

== ENCOUNTER 2025-07-20 19:41 | Outpatient (REF) | payer MEDICARE, MEDICAID, SELFPAY ==
[2025-07-20 21:56] LABS: COMMENT (LAB VIEW ONLY) 142.32 mg/dL; Microalb ug/mg Crea 31.1 ug/mg Cr
== END 2025-07-20 19:42 | disposition home or self-care (01) ==
LOC: NCHCN 19:41
PROVIDERS: PCP Student in an Organized Health Care Education/Training Program; Visit Provider Student in an Organized Health Care Education/Training Program
DX: E11.51 Type 2 diabetes mellitus with diabetic peripheral angiopathy without gangrene (principal)
CPT/HCPCS: 82043; 82570

== ENCOUNTER 2025-08-08 03:29 | Outpatient (CLI) | payer MEDICARE, MEDICAID, SELFPAY ==
--- NOTE | 2025-08-08 06:00 | DI.RAD_ITS ---
Exam(s) XR FOOT LT COMPLETE EXAM: XR FOOT LT COMPLETE CLINICAL HISTORY: Left foot pain,M79.672. TECHNIQUE: 2D digital imaging was performed. Three views. COMPARISON: CR LEFT FOOT COMPLETE from 08/12/2017 FINDINGS: BONES: There are no recent plain films for comparison. There has been interval amputation of the 1st toe to the level of the distal 1st metatarsal. Amputation of the 2nd toes also present. There is deformity of the 2nd metatarsal head. There are subacute appearing fractures of the mid shaft of the 2nd and 3rd metatarsals which shows multiple comminuted fragments and mild displacement. There is a nondisplaced fracture at the neck of the 4th metatarsal. There is deformity at the medial base of the middle phalanx of the 3rd toe which has the appearance of a subacute fracture. JOINTS: No dislocation present. SOFT TISSUE: soft tissue swelling around the 1st through 3rd metatarsal region. A BB is again noted in the soft tissues between the 1st and 2nd metatarsals. IMPRESSION: Status post amputations of the 1st and 2nd toes. Subacute fractures with multiple comminuted fragments involving the 2nd and 3rd metatarsals. Nondisplaced fracture of the neck of the 4th metatarsal. DATA REPOSITORY: RADIATION DOSE DELIVERED:
== END 2025-08-08 03:49 ==
PROVIDERS: PCP Student in an Organized Health Care Education/Training Program; Visit Provider Podiatrist
DX: S92.344A Nondisplaced fracture of fourth metatarsal bone, right foot, initial encounter for closed fracture (principal); M79.672 Pain in left foot; X58.XXXA Exposure to other specified factors, initial encounter
CPT/HCPCS: 73630

== ENCOUNTER 2025-08-27 02:35 | Outpatient (CLI) | payer MEDICARE, MEDICAID, SELFPAY ==
--- NOTE | 2025-08-27 14:17 | DI.RAD_ITS ---
Exam(s) XR FOOT LT COMPLETE EXAM: XR FOOT LT COMPLETE CLINICAL HISTORY: Possible Charcot, CHARCOT JOINT LT FOOT, M14.672. TECHNIQUE: 2D digital imaging was performed. Three views. COMPARISON: CR LEFT FOOT COMPLETE from 08/12/2017 CR XR FOOT LT COMPLETE from 08/08/2025 FINDINGS: BONES: Amputations of the 1st and 2nd toes are again noted to the level of the proximal metatarsal. Prominent callus formation noted around the mid 2nd and 3rd metatarsals related to previous fractures which show partial healing. Nondisplaced fracture of the 4th metatarsal neck again noted. Stable appearance of mild deformity of the middle phalanx. JOINTS: No dislocation present. SOFT TISSUE: Round metallic foreign body again noted medial to the 2nd metatarsal. Dorsal soft tissue swelling is again present. IMPRESSION: Increased healing at the 2nd and 3rd metatarsals with prominent callus formation. Some interval healing at the distal 4th metatarsal fracture. Prior amputation of the 1st and 2nd toes. No suspicious bony erosions to suggest osteomyelitis. DATA REPOSITORY: RADIATION DOSE DELIVERED:
== END 2025-08-27 02:55 ==
LOC: DI 02:36
PROVIDERS: PCP Student in an Organized Health Care Education/Training Program; Visit Provider Podiatrist
DX: M14.672 Charcot's joint, left ankle and foot (principal)
CPT/HCPCS: 73630

== ENCOUNTER → 2025-08-29 10:47 | Outpatient (BNVA) | payer MEDICARE, MEDICAID, SELFPAY | PROVIDERS: PCP Student in an Organized Health Care Education/Training Program; Referring Provider Student in an Organized Health Care Education/Training Program; Visit Provider Podiatrist | DX: M14.672 Charcot's joint, left ankle and foot (principal); E11.51 Type 2 diabetes mellitus with diabetic peripheral angiopathy without gangrene; E11.65 Type 2 diabetes mellitus with hyperglycemia; M79.672 Pain in left foot; R60.0 Localized edema; Z89.412 Acquired absence of left great toe | CPT/HCPCS: 99214 ==

== ENCOUNTER → 2025-09-13 12:51 | Outpatient (BNVA) | payer MEDICARE, MEDICAID, SELFPAY | PROVIDERS: PCP Student in an Organized Health Care Education/Training Program; Referring Provider Student in an Organized Health Care Education/Training Program; Visit Provider Physical Therapy Assistant | DX: Z12.11 Encounter for screening for malignant neoplasm of colon (principal) | CPT/HCPCS: S0285 ==

== ENCOUNTER 2025-10-03 07:35 | Day surgery (SDC) | payer MEDICARE, MEDICAID, SELFPAY ==
[2025-10-03 08:17] VITALS: BP 140/73; PULSE 88; RESP 16; TEMP 35.9; O2SAT 98
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
[2025-10-03] MEDS: Lactated Ringers 1,000 ML 80 ML IV (08:27)
[2025-10-03 08:30] VITALS: BMI 34.9
--- NOTE | 2025-10-03 09:33 | W.PM.DSUDISC ---
Date of service: 10/03/25 Discharge Plan Disposition Patient Disposition: Home Condition: Good Discharge Details Reason For Visit: Screening colonoscopy Attending Provider: Brianna Daniel Primary Care Provider: Charles Romero [place] Meds and New Rx's Prescriptions: Continued ketoconazole 2 % cream 1 applic topical DAILY Qty: 120 6RF Rx Instructions: Apply to 1g to skin and toenails once daily ezetimibe 10 mg tablet 10 mg PO DAILY cholecalciferol (vitamin D3) 1,250 mcg (50,000 unit) capsule 1,250 mcg PO QWEEK Eliquis 5 mg tablet 5 mg PO BID semaglutide 2 mg/dose (8 mg/3 mL) pen injector 2 mg subcut QWEEK Patient Comments: pt. unsure of when he last took, knows he did not take today ropinirole 0.25 mg tablet 0.5 mg PO QHS Rx Instructions: administer 1-3 hours before bedtime cholecalciferol (vitamin D3) 1,250 mcg (50,000 unit) capsule 1,250 mcg PO QWEEK omeprazole 40 mg capsule,delayed release(DR/EC) 40 mg PO DAILY protriptyline 10 mg tablet 10 mg PO TID aspirin 81 mg tablet,delayed release (DR/EC) 81 mg PO DAILY insulin glargine [Lantus Solostar U-100 Insulin] 100 unit/mL (3 mL) insulin pen 50 unit Sub-Q HS sildenafil [Viagra] 100 mg tablet 100 mg PO DAILY PRN Rx Instructions: administer 30 minutes to 4 hours before activity metoprolol succinate 25 mg tablet extended release 24 hr 25 mg PO DAILY metformin 500 MG tablet 1,000 mg PO BID Qty: 90 0RF Rx Instructions: pt has not taken in > 1 year venlafaxine 150 MG capsule,extended release 24hr 225 mg PO DAILY methylphenidate HCl [Ritalin] 20 MG tablet 20 mg PO TID amlodipine 5 MG tablet 5 mg PO DAILY atorvastatin 80 MG tablet 80 mg PO DAILY lisinopril 40 mg tablet 40 mg PO DAILY Qty: 30 1RF losartan 50 mg tablet 50 mg PO DAILY Patient Comments: TAKE ONE TABLET BY MOUTH EVERY DAY insulin lispro 100 unit/mL insulin pen SUBCUT Patient Comments: pt. cant recall if he took yesterday insulin aspart U-100 100 unit/mL (3 mL) insulin pen SUBCUT Patient Comments: pt. unsure if he takes Discontinued bisacodyl 5 mg tablet,delayed release (DR/EC) 5 mg PO ONCE Qty: 4 0RF Rx Instructions: Per Colonoscopy bowel prep instructions polyethylene glycol 3350 17 gram/dose powder 238 g PO ONCE Qty: 238 0RF Rx Instructions: For Colonoscopy bowel prep, as directed by office Discharge Instructions Additional Instructions: Unfortunately your prep for the colonoscopy today was inadequate to visualize polyps. The recommendation would be to have a repeat colonoscopy with a different prep strategy. My office will contact you to set this up. Please contact the surgery office in the interim if you have any questions or concerns. 1. If tolerated, consume a soft, low fiber diet for 1-2 days. [address] Do not drive, drink alcohol, operate machinery, make critical decisions, or do activities that require coordination or balance for 24 hours. 3. Because air was put into your colon during the procedure, expelling air from your rectum (passing gas or farting) is normal. 4. You may not have a bowel movement for 1-3 days because of the colonoscopy prep. This is normal. 5. Go directly to the emergency room if you notice any of the following: Develop chills (warm to touch), or if you have a thermometer and your temperature is above 101 Difficulty breathing or difficultly swallowing Persistent vomiting Severe abdominal pain, other than gas cramps Severe chest pain Black, tarry stools Any bleeding ? exceeding one tablespoon 6. Call your physician if the site where your intravenous was started becomes red, swollen, painful, and warm to touch. 7. Your physician has reviewed your pre-procedure medications. Please continue to take those medications as previously ordered. You will be given specific information/education regarding any changes to your medications before leaving. Stand Alone Forms: Portal Information Activity:: Activity as Tolerated Diet:: As Tolerated Discharge Orders Discharge Orders: Discharge Order (Routine); Ordered 10/03/25 Ordered By: Brianna Daniel
--- NOTE | 2025-10-03 09:35 | COLE_ITS ---
Date of service: 10/03/25 Time of Service: 09:35 Colonoscopy Report Date of procedure: 10/03/25 Pre-op diagnosis general: Screening colonoscopy Post-op diagnosis procedure note: same Procedure: Colonoscopy Surgeon: Brianna Daniel Anesthesia Type: General:No Airway Estimated blood loss (mL): 0 Pathology: none sent Complications: None Disposition: PACU Indications: Patient is a 50 yo male who presents for a screening colonoscopy. He denies any changes in bowel habits or family history of colon cancer. Prep: Miralax/Dulcolax Procedure Start Time: :18 Procedure End Time: :29 Retraction Time: 4 Findings: Inadequate prep for polyp visualization. Procedure Description: Informed consent was obtained. The patient was taken to the endoscopy suite and placed in the left lateral decubitus position. After adequate intravenous sedation, digital rectal exam was performed, which was normal. A colonoscope was inserted into the rectum and easily negotiated to the cecum. The ileocecal valve was identified. The prep throughout the entire colon was inadequate to visualize polyps. The patient tolerated the procedure well with no complications. Postoperatively, the patient was transferred to the recovery room in stable condition. [place] Bowel Prep [place] Bowel Prep Right Colon: 1 Left Colon: 1 Transverse Colon: 1 Total Score: 3
[2025-10-03 09:39] VITALS: BP 94/60; PULSE 90; RESP 18; TEMP 36.2; O2SAT 93
--- NOTE | 2025-10-03 09:52 | W.ANESPOSTOP ---
Postoperative Evaluation Date, Time and Location Date Performed: 10/03/25 Time Performed: 09:52 Patient Location: Day Surgery Unit Vital Signs Most Recent Imported Vital Signs: Most Recent Vital Signs Temp Pulse Resp BP Pulse Ox 36.2 C L 90 18 94/60 L 93 10/03/25 09:39 10/03/25 09:39 10/03/25 09:39 10/03/25 09:39 10/03/25 09:39 Pain Score Most Recent Pain Score: Most Recent Pain Score Pain Level 0 10/03/25 08:17 Assessment Mental Status: Awake (Alert & Oriented to Patient Baseline) Airway and Respiratory Function: Patent airway with normal (patient baseline) respiratory exam Cardiovascular Function: Hemodynamically Stable Hydration Status: Adequately Hydrated Nausea & Vomiting: No Nausea or Vomiting Pain: Pt. Denies Any Pain Peripheral Nerve Block: Patient did not receive a nerve block
[2025-10-03 10:08] VITALS: BP 108/77; PULSE 86; RESP 16; TEMP 36.2; O2SAT 95
== END 2025-10-03 10:45 | disposition home or self-care (01) ==
PROVIDERS: PCP Student in an Organized Health Care Education/Training Program; Visit Provider Student in an Organized Health Care Education/Training Program
PROC: 0DJD8ZZ Inspection of Lower Intestinal Tract, Via Natural or Artificial Opening Endoscopic (ICD-10-PCS; CPT 45378; principal; 2025-10-03 09:00)
DX: Z12.11 Encounter for screening for malignant neoplasm of colon (principal)
CPT/HCPCS: G0121; J2003; J2704

== ENCOUNTER 2025-10-23 01:31 | Outpatient (CLI) | payer MEDICARE, MEDICAID, SELFPAY ==
[2025-10-23 10:46] LABS: Anion Gap 8.9 mmol/L (3-11); BUN 16 mg/dL (9-23); CO2 25.1 mmol/L (20.0-31.0); Calcium 9.1 mg/dL (8.3-10.6); Chloride 106 mmol/L (98-107); Glucose 205 mg/dL (74-106); Potassium 4.3 mmol/L (3.5-5.1); Sodium 140 mmol/L (136-145)
== END 2025-10-23 01:32 | disposition home or self-care (01) ==
LOC: LBO 01:32
PROVIDERS: PCP Student in an Organized Health Care Education/Training Program; Visit Provider Internal Medicine Endocrinology, Diabetes & Metabolism
DX: E10.65 Type 1 diabetes mellitus with hyperglycemia (principal); E78.2 Mixed hyperlipidemia; I25.2 Old myocardial infarction; I73.9 Peripheral vascular disease, unspecified
CPT/HCPCS: 36415; 80048; 82985; 84681